=== PATIENT | male | born 1950 | race Caucasian/White ===

== ENCOUNTER → 2018-02-22 11:19 | Outpatient (CLI) | payer MEDICARE, BC, SELFPAY ==
[2018-02-22 12:58] LABS: Hemoglobin A1C 6.3 % (4.5-6.2)
[2018-02-22 13:01] LABS: Anion Gap 7.9 mmol/L (3-11); BUN 16 mg/dL (7-18); CO2 31.1 mmol/L (21.0-32.0); CREATININE 1.24 mg/dL (0.70-1.30); Calcium 9.5 mg/dL (8.5-10.1); Chloride 103 mmol/L (98-107); Glucose 156 mg/dL (70-100); Potassium 3.9 mmol/L (3.5-5.1); Sodium 142 mmol/L (136-145); TSH 2.59 uIU/mL (0.358-3.74)
== END ==
PROVIDERS: PCP Emergency Medicine; Visit Provider Emergency Medicine
DX: E03.9 Hypothyroidism, unspecified (principal); E11.49 Type 2 diabetes mellitus with other diabetic neurological complication
CPT/HCPCS: 36415; 80048; 83036; 84443

== ENCOUNTER 2018-03-03 10:30 | Outpatient (RCR) | payer MEDICARE, SELFPAY ==
--- NOTE | 2018-02-03 10:00 | PTTR_ITS ---
DATE: 02/03/18 SUBJECTIVE: Arrived to dept with note from orthopedist indicating he is to begin daily PT in an attempt to regain end range extension. Knows he has to be better about doing his HEP and allowing end range stretching. Orthopedist removed stitch in distal aspect of scar, is to leave bandage on this region for a week. Was instructed to take 2-3 pain pills prior to PT appts to help with discomfort. OBJECTIVE: KX applied to all codes x Manual therapy: (13173v2). Mobilization of right patella in all planes, tib fem jt mobs in supine and seated positions, scar tissue massage in well healed region of scar and prolonged stretching into flexion and extension. Focus was mainly on end range extension as per orthopedist orders. Performed hamstring and quad stretches for 5 reps x 20-30 seconds each. AROM prior to mobilization 15 degrees extension and post mobilization with AAROM was 8 degrees extension. Flexion remains at approximately 112 degrees. Able to perform full revolutions on stationary bike without discomfort. Therapeutic procedures ([id number]). * x HEP review: Reviewed use of 3x10 device and stretching of right hamstring with foot up on chair or stool, against wall and positioned in prone with knee hanging off bed with 5# weight at ankle. * x See flow sheet: Focus on AAROM into extension and strengthening of right LE / hip stabilizers. * x Provided skilled instruction in proper exercise performance * x Provided skilled manual cues to facilitate proper muscle recruitment and/ or movement pattern Ended session with 3x10 device with cold pack on knee x 3 minutes x 3 times. Having patient perform this independently with supervision. Direct treatment time: 60 minutes Total treatment time: 60 minutes
--- NOTE | 2018-02-04 15:51 | PTTR_ITS ---
DATE: 02/04/18 SUBJECTIVE: Yash indicates that he was a bit sorer last night, but tolerable. Has been utilizing his 3 x 10 device at home independently. Feels that his knee is a bit straighter than it had been. Is continuing to take 2 Oxycodone prior to P.T. services to help deal with the soft tissue mobilization sensitivity. OBJECTIVE: KX applied to all codes [yes] Manual therapy: ([id number]). Did receive mobs of the patella in all planes as well as tibiofemoral anterior and posterior glides while in supine. Soft tissue stretching of the hamstrings and quadriceps as well as prolonged stretching into end range flexion and extension with focus on end range extension. Did utilize hold relax technique with each of these positions. Also, had the patient perform prone hangs with a 5# weight at ankle. AROM prior to mobs was noted to be approx. 15 and post mobs AAROM is approx. 6 with over pressure given. Therapeutic procedures (13587r7). * x See flow sheet: focus was on AAROM into end range extension and strengthening of the right LE and hip stabilizers. * Verbal and tactile cues were provided throughout today's session for proper positioning and isolation of specific muscles. * Due to time limitations he was not able to complete his full program today. Is to be seen again tomorrow. * * Ended with 10 min. of cryotherapy to the right knee with leg fully extended and a towel roll under his heel to promote end range extension at no charge. The patient did report this becoming uncomfortable for the last minute. Direct treatment time: 45 min. Total treatment time: 55 min. SG/gc
--- NOTE | 2018-02-05 11:15 | PN_ITS ---
DATE: February 05, 2018 REFERRING: Breezy Bishop MD REPORTING PERIOD (for progress note and discharge note only): 12/24/17 TO SUBJECTIVE: Yash states that he worked a little bit on the knee extension board. Admits he is not doing it for 10 mins. We discussed performing this activity 3x a day for 10 mins. He is allowed to take some breaks during that 10 mins to lighten up that tension, but really stress the fact that he needs to be compliant with this if he is to regain terminal 10 degrees of extension. OBJECTIVE: Treatment: Manual therapy 37595w1 (KX modifier): Started with moist heat to the popliteal fossa, distal hamstring, proximal gastroc for 10 mins followed by instrument assisted soft tissue mobilization using fanning and sweeping through the distal 3rd of the hamstring and proximal third of the gastroc medial and lateral heads with GT1 and 4 followed by some patella mobilizations in all directions grade 3 and 4 followed by tibiofemoral joint distraction with over pressure into extension. Then set him up with 3x10 extension board in clinic and work for 10 mins with 2 breaks at 3 1/2 mins. Ended with cryotherapy for 10 mins to the knee. Treatment time: Direct/Total: 30 mins. ASSESSMENT: Still lacking approximately 10 degrees, however this is better than lacking 20 degrees as he was a couple weeks ago. Patient does need to be more compliant with his self mobilization if he is to make any significant gains with his terminal extension. KX modifier to be utilized as justified by above documentation for necessity of continued Physical Therapy intervention to attend to functional deficits which have not been fully remediated as they approach their Medicare cap. PLAN: Continue as above through next week as he is leaving the area for vacation after next week. MM/dl cc: Breezy Bishop MD
--- NOTE | 2018-02-08 14:31 | PTTR_ITS ---
DATE: 02/08/18 SUBJECTIVE: Yash states that he has been compliant with his HEP, including the 3x10 board. OBJECTIVE: KX modifier applied to all charges. Manual therapy: ([id number]). session began with MHP to posterior aspect of knee x 8 min. F/B STM t/o posterior knee, hamstring and gastroc region. Mobilizations of tib/fem jt including posterior and anterior glides. Patella glides in all directions as well as ROM into flex and ext. I focused on ext using MET's. LE distractions via leg pulls with over pressure into ext. Stretching of hamstrings, ITB and quads. Therapeutic procedures (21163h3). * x See flow sheet: limited ther ex routine with focus on extension. * x Provided skilled instruction in proper exercise performance: proper quad engagement. ended with cryo x 10 min. Direct treatment time: 45 min Total treatment time: 55 min.
--- NOTE | 2018-02-09 10:59 | PTTR_ITS ---
DATE: 02/09/18 SUBJECTIVE: Yash reports fair compliancy with his extension self mobilization board; at least 1x per day. Has also been resting his heel on a rail off his deck. OBJECTIVE: Manual therapy: ([id number]). Moist heat was applied to the posterior knee x10 minutes in the hook lying position followed IASTM via Graston Techniques with fanning and sweeping with GT 1 and GT 4 through the distal half of the hamstrings medially and laterally as well as the proximal half of the gastroc medially and laterally. AP and PA mobs were performed to the tibiofemoral joint followed by manual distraction with over pressure into extension achieving -10 . This is with over pressure. Ended with cryotherapy to the knee x10 min. in supine hook lying position. KX modifiers to be applied. Direct treatment time: 30 minutes Assessment: Fair compliancy, at best, with self mobilization into extension. Really don't anticipate gaining much more extension, other than the 10 he is currently lacking. Would like to see him come in lacking 10 , not 15 to 18 , and having to work to -10 , however. This certainly boils down to a compliancy issue. Plan: Continue as indicated above. He will cancel one of his next three visits this week, as he does not need to be seen daily, given the fact that he has plenty of things to work on at home for his HEP. This is contingent on his compliancy. Will see him 1x next week prior to his departure for vacation x1 week. MM/gc
--- NOTE | 2018-02-10 14:17 | PTTR_ITS ---
DATE: 02/10/18 SUBJECTIVE: Yash states that he feels as though he is where is at. He does not feel as though his ROM is improving at all. OBJECTIVE: KX applied to all codes Manual therapy: ([id number]). session began with MHP to posterior knee x 10 min. I then performed mobilizations of tib/fem jt including posterior and anterior glides, P/AAROM into flex and ext with focus on extension, in both flex and ext. Over pressure stretch into extension with tibial distractions using MET's. STM t/o popliteal fossa, distal hamstring and proximal gastroc using PRT's. I also used IASTM using Graston tools. Ended with cryo x 10 min. Ext measured approx 7 degrees post mobs. Direct treatment time: 35 min Total treatment time: 60 min
--- NOTE | 2018-02-12 14:39 | PTTR_ITS ---
DATE: 02/12/18 SUBJECTIVE: Yash indicates he feels that he has gained a little end range extension, but has a difficult time maintaining this. OBJECTIVE: KX applied to all codes (yes) Manual therapy: (49554w2). Did receive mobs of the right patella in all planes, as well as tibiofemoral anterior / posterior glides while seated and in supine. Utilized moist heat to the posterior knee x5 minutes prior to soft tissue mobs. Did utilized edger tool, as well, at the insertion regions of the right hamstrings and the origin region of the right gastroc musculature prior to soft tissue stretching into end range extension. The patient was noted to have approximately 12 of end range extension at the start of today's session. AA, post mobs, he had -7 of extension. Performed soft tissue stretching of the hamstrings, hip flexors and quadriceps was also performed today. The patient is lacking approximately 10 of end range flexion when compared to the contralateral limb. Treatment ended with cryotherapy x10 minutes with leg fully extended and heel on a towel roll to encourage end range extension. Direct treatment time: 40 minutes Total treatment time: 50 minutes Assessment: Tolerated today's session fair. Does have a very difficult time maintaining end range extension after P.T. sessions. I do think he has a difficult time pushing his extension at home. Plan: Will continue with focus on encouraging end range extension. Continue per supervising P.T. POC. THOR/fabricio
--- NOTE | 2018-02-15 13:19 | PTTR_ITS ---
DATE: 02/15/18 SUBJECTIVE: Yash brings back our 3 x 10 extension board, indicating he is leaving for vacation and will not use it while away. Admits he has been somewhat compliant with its use. OBJECTIVE: KX applied to all codes (yes) Manual therapy: (74297o4). Moist heat was applied to the popliteal fossa x10 min. in hook lying position. Performed IASTM via Graston Techniques to the distal hamstring and proximal gastroc with GT 1 and GT 4 as well as medial hamstring splaying at the distal attachment. This was followed by AP and PA mobs of the tibiofemoral jt at a Grade 4 followed by tibiofemoral jt. distraction with over pressure into extension. AA he measures 10 at best. Pre mobilization 20 and post mobilization lacking 15 . Therapeutic procedures (22712v3). * x See flow sheet: quad activation standing fashion pose exercise incorporating terminal extension with active over pressure. * * Ended with cryotherapy to the knee x10 min. at no charge. Direct treatment time: 11:00 til 11:45 A.M. Assessment: No appreciable change in his extension. I do feel this is pretty much where he is going to be, at this point, despite Orthopedist's optimism. I don't really see him progressing with further extension. Would like to get him to about 5 , but AA at 10 has been the max. Plan: Will follow up with patient after his vacation. MM/fabricio
--- NOTE | 2018-02-22 10:30 | PN_ITS ---
DATE: February 22, 2018 REFERRING: Dr. Breezy Bishop MD [facility] [place] REFERRING PROVIDER DIAGNOSIS:: R TKA Reporting period: 12/24/17 to 02/22/18 SUBJECTIVE: The patient reports NO compliance with his knee extension self mobilization when he was away for vacation. We do discuss resumption of the 3x10 extension board, which he is hesitant, but agreeable to. Denies any significant pain in the knee. OBJECTIVE: Upon observation, the patient still ambulating with decreased knee extension at initial contact, decreased heel strike. Tends to come down in a flat foot position. Treatment: Manual therapy [id number]: KX MODIFIER to all charges: Tibiofemoral joint distraction, tibiofemoral joint anterior/posterior mobilizations grade 3 and 4 followed by patella mobilization in all directions grade 4. Then performed hold/relax mobilization into tibiofemoral joint extension with manual distraction offered. Pre mobilization he is lacking 18-20 degrees of terminal extension. Post mobilization he is lacking 13-15 degrees. AA to -10 degrees terminal extension R. Ended with cryotherapy to the anterior/posterior aspect of the knee in hook lying for 10 mins. ASSESSMENT: No appreciable change with improvements in extension at this point. Patient does follow up with his orthopedist next week. G-Codes (fill in modifier after appropriate code): Patient's primary functional limitation is in the category of: __x__ Mobility - walking and moving around : [id number] Projected goal: __x__ Mobility - walking and moving around: [id number] Patient has met STG 1, 2, 3. Has not met 4 and 5 established at I.E. At this point do not anticipate him regaining terminal extension as he has significant scar tissue preventing him from achieving this. AA/Passively we are unable to get into terminal extension. Fair compliance at best with his self mobilization. LT & 3 have been MET, and LTG 4. STG: __6__ weeks. 1) full SLR with 0 lag 2) decrease pain by 25% 3) improve active knee flexion to 110 or more 4) knee extension, actively, to 0 5) ambulation with good gait mechanics and use of front wheeled walker LTG: __12__ weeks. 1) return to full functional mobility 2) active knee flexion greater than or equal to 115 3) increase LE strength to greater than or equal to 4/5 throughout 4) decrease LEFS to less than 35% STANDARDIZED MEASURE: The patient scores 29% on the LEFS PLAN: Continue, seeing patient 2 more times this week. I did reissue him the 3x10 extension board and have him work on this 10 mins 3x a day as tolerable. Following this week, will likely discharge from formal PT. MM/dl *Dr. Bishop, please sign this progress note if you are in agreement with the above plan of care. Breezy Bishop MD
--- NOTE | 2018-02-24 11:45 | PTTR_ITS ---
DATE: 02/24/18 SUBJECTIVE: [facility] states that he has not noted any changes. OBJECTIVE: KX modifier applied to charges. Manual therapy: ([id number]). mobilizations of right tib/fem jt including posterior and anterior glides, patella glides in all directions. LE distractions via leg pulls with over pressure into ext. Stretching of hamstrings, ITB and hip flex/quads in modified Urbano test position. He went into prone and received STM t/o hamstring, and popliteal fossa region using PRT's and CMF. Over pressure stretch into extension. He ended with cryo x 10 min. Continues to lack approx 10 degrees of extension. Direct treatment time: 40 min Total treatment time: 50 min
--- NOTE | 2018-02-26 12:08 | PTTR_ITS ---
DATE: 02/26/18 SUBJECTIVE: Yash states he is doing the same. No changes in knee. OBJECTIVE: KX applied to all codes Manual therapy: ([id number]). mobilizations of tib/fem jt including posterior and anterior glides, ROM in seated and supine positions. LE distractions with tibial distractions and over pressure stretching into extension. Patella glides in all directions. Hamstring , and ITB stretching. He went into prone and received STM t/o posterior aspect of knee with focus on ITB and lateral hamstring. IASTM using Graston tools, PRT' s and CFM . Continued stretching into extension. He ended with cryo x 10 min with elevation. Direct treatment time: 45 min Total treatment time: 55 min
--- NOTE | 2018-03-01 10:30 | PTTR_ITS ---
DATE: 03/01/18 SUBJECTIVE: Yash states he sees orthopedist later today. At this point he thinks he has reached a plateau with his therapy. Admits he is not very compliant with extension self mobilization. OBJECTIVE: KX applied to all codes X Manual therapy: ([id number]). Premobilization he is -18 degrees, post mobilization AA to -10. Incision is moving well except the last inch and half where he had the stitch removed. Patella mobility is improving, medial, lateral , superiorly is still mildly limited inferiorly. Knee flexion to 105 degrees active, 110 AA. Patella mobilizations, inferior/superior, tibiofemoral joint mobilization with manual distraction, over pressure into extension. He then performed hamstring, gastroc stretching. Completed treatment with ice to anterior/posterior aspect of the knee. Direct treatment time: 30 mins Total treatment time: 30 mins A: No appreciable gains at this point with ROM into extension. Compliancy is certainly an issue. P: Follow up with him after his ortho visit. Will plan to discharge at that time. MM/dl
--- NOTE | 2018-03-03 14:32 | PTTR_ITS ---
DATE: 03/03/18 SUBJECTIVE: Yash reports that his MD would like him to continue with PT. OBJECTIVE: Manual therapy: ([id number] N/C). mobilizations of left tib/fem jt including posterior and anterior glides, ROM in seated and supine positions. Patella glides in all directions. Scar tissue work. Over pressure stretching with tibial distractions. Stretching of hamstring , in various positions. He went into prone and received STM t/o posterior knee with focus on lateral hamstrings, ITB and lateral calf. Myofascial stretching and continued over pressure stretch with tibial distractions in prone. He wento back into supine and I continued his ROM with focus on extension. Continues to lack approx 10 degrees of extension AA. He declined cryo today. Direct treatment time: 30 min Total treatment time: 30 min
== END 2018-03-05 23:59 | disposition home or self-care (01) ==
LOC: PT 10:30
PROVIDERS: PCP Emergency Medicine; Referring Provider Orthopaedic Surgery Adult Reconstructive Orthopaedic Surgery; Visit Provider Orthopaedic Surgery Adult Reconstructive Orthopaedic Surgery
DX: Z47.1 Aftercare following joint replacement surgery (principal); Z96.651 Presence of right artificial knee joint; M75.102 Unspecified rotator cuff tear or rupture of left shoulder, not specified as traumatic
CPT/HCPCS: 97110; 97140; G8978

== ENCOUNTER 2018-03-20 09:06 | Outpatient (CLI) | payer MEDICARE, BC, SELFPAY ==
[2018-03-20 10:53] LABS: HCT 47.1 % (40.0-50.0); HGB 15.9 g/dL (13.5-17.5); Mean Corp. HGB Concentration 33.8 g/dL (32.0-36.0); Mean Corpuscular Hemoglobin 29.6 pg (27.0-33.0); Mean Corpuscular Volume 87.7 fL (80-95); Mean Platelet Volume 9.7 fL (8.0-11.0); Platelet Count 271 x1000/uL (130-400); RBC 5.37 m/cumm (4.50-6.00); RBC Distribution Width 14.3 % (11.8-14.1); White Blood Cell Count 9.42 k/cumm (4.4-10.8)
[2018-03-20 11:01] LABS: Bilirubin Negative (Negative); Blood Negative (Negative); Clarity Clear; Glucose Negative (Negative); Ketones Negative (Negative); Leukocyte Esterase Negative (Negative); Nitrite Negative (Negative); Urobilinogen 0.2 EU/dL (Up TO 0.2); pH 6.5 (5-8)
[2018-03-20 11:10] LABS: Bacteria Rare HPF (Negative); C & S Indicated? No; Casts Negative LPF (Negative); Crystals Negative HPF (Negative); Epithelial Cells Negative HPF (Negative); Mucus Trace (Negative); Other Cells Negative (Negative); RBC Negative (0-2); WBC Negative HPF (0-5)
[2018-03-20 11:37] LABS: ALT 22 U/L (12-78); AST 15 U/L (15-37); Albumin 3.4 g/dL (3.4-5.0); Alkaline Phosphatase 87 U/L (46-116); Anion Gap 10.2 mmol/L (3-11); BUN 13 mg/dL (7-18); Bilirubin, Total 1.6 mg/dL (0.2-1.0); CO2 28.8 mmol/L (21.0-32.0); CREATININE 1.39 mg/dL (0.70-1.30); Calcium 9.1 mg/dL (8.5-10.1); Chloride 103 mmol/L (98-107); Estimated GFR 50.67 (mL/min/1.73m2); Glucose 161 mg/dL (70-100); Magnesium 1.6 mg/dL (1.8-2.4); PHOSPHORUS 2.9 mg/dL (2.6-4.7); Potassium 3.5 mmol/L (3.5-5.1); Sodium 142 mmol/L (136-145); Total Protein 7.3 g/dL (6.4-8.2); Uric Acid 7.2 mg/dL (3.5-7.2)
[2018-03-20 11:38] LABS: Cholesterol 125 mg/dL (50-200)
[2018-03-22 04:55] LABS: PROTEIN 113.1 mg/dL
[2018-03-22 05:25] LABS: COMMENT (LAB VIEW ONLY) 142.45 mg/dL; Prot/Crea Ur Ratio 0.79
[2018-03-22 13:44] LABS: Tacrolimus 10.8 ng/ml
== END 2018-03-20 09:26 ==
PROVIDERS: PCP Emergency Medicine; Visit Provider Internal Medicine Nephrology
DX: Z94.0 Kidney transplant status (principal); Z79.899 Other long term (current) drug therapy
CPT/HCPCS: 80053; 85027; 80197; 81003; 81015; 82465; 82565; 83735; 84100; 84156; 84550

== ENCOUNTER 2018-06-12 11:52 | Emergency (ER) | payer MEDICARE, BC, SELFPAY ==
[2018-06-12] VITALS (13 sets, daily range): BP systolic 162–204; BP diastolic 68–85; PULSE 51–63; RESP 16–18; TEMP 36.5–36.6; O2SAT 93–97
--- NOTE | 2018-06-12 12:10 | ED.GENADUL_ITS ---
Discharge Plan Disposition Patient Disposition: HOME Condition: Good Discharge Details Chief Complaint: Abd Prob Clinical Impression: Abdominal pain, Biliary colic, Colitis, Vomiting Primary Care Provider: Urbano Denis ED Provider: Aminah Walsh Home Meds and New Rx's Prescriptions: No Action blood-glucose meter 1 EACH misc 1 ea Miscellaneous DAILY Qty: 1 RF: 1 lancets 1 EACH misc 1 ea Miscellaneous DAILY Qty: 100 RF: 4 calcitriol 0.25 MCG capsule 0.25 mcg PO DAILY Qty: 90 RF: 3 magnesium gluconate 27 MG tablet 2 tab PO BID RF: 0 mycophenolate mofetil [CellCept] 250 MG capsule 250 mg PO BID RF: 0 tacrolimus [Prograf] 1 MG capsule 3 mg PO BID RF: 0 potassium phosphate, monobasic [K-Phos Original] 500 MG tablet,soluble 3 tab PO BID RF: 0 tamsulosin 0.4 MG capsule 0.4 mg PO DAILY RF: 0 ascorbic acid (vitamin C) [Vitamin C] 500 MG capsule, extended release 500 mg PO TID RF: 0 blood sugar diagnostic [The IdealistsTouch Ultra Test] 1 EACH strip 1 ea Miscellaneous BID Qty: 180 RF: 3 levothyroxine 137 MCG tablet 137 mcg PO DAILY Qty: 90 RF: 3 oxycodone 5 MG capsule 5 mg PO HS MDD 3 RF: 0 sildenafil [Viagra] 100 MG tablet 100 mg PO as directed MDD 100 mg Qty: 10 RF: 6 glipizide [Glucotrol XL] 5 mg tablet extended release 24hr 5 mg PO DAILY Qty: 90 RF: 3 clopidogrel [Plavix] 75 mg tablet 75 mg PO DAILY Qty: 90 RF: 4 omeprazole 20 MG capsule,delayed release(DR/EC) 20 mg PO DAILY PRNRF: 0 Discharge Instructions Instructions: Biliary Colic (ED), Abdominal Pain (ED), Colitis (ED) Additional Instructions: Drink plenty of fluids and get plenty of rest. Take Tylenol as needed and directed for pain. Limit fried and fatty foods over the next few days and in general as these can lead to gallstones. Follow-up with your primary care doctor in 1 week for reevaluation. Return immediately to the emergency department any worsening or new concerning symptoms. Discharge Data Discharge Date/Time-TO BE ENTERED AT DEPARTURE: 06/12/18 18:10 Discharge Physician: Aminah Walsh Medical Decision Making 67yo M with a history of A. fib, CHF, diabetes, hypertension, kidney transplant 2016 who presents with right-sided abdominal, right testicular pain and vomiting x1 this morning. Blood pressure mildly hypertensive otherwise vitals within normal limits. Patient afebrile. Patient appears nontoxic. Patient has tenderness to palpation extending from the right lower quadrant up to the right upper quadrant. Negative heel jar, obturator, psoas sign. No rebound tenderness. No rigidity. Normal exam. Patient does also have suprapubic and left lower quadrant tenderness. Due to patient's history of kidney transplant, cannot use IV contrast. Differential diagnosis includes appendicitis, cholecystitis, nephrolithiasis, diverticulitis, SBO. We will place an IV give bolus IV fluids, oral contrast, labs, urinalysis and give a dose of Zofran. Patient is declining pain medication at this time. 1445 --labs and imaging reviewed. Normal white blood cell count. Labs unremarkable. 5-10 RBCs in the urine but no evidence of infection. CT abdomen notes mildly edematous renal transplant, possible mild diverticulitis, possible colitis and a gallstone in the gallbladder. Normal appendix. Will push images to [facility] transplant team to evaluate the transplant kidney. Radiology called to see if possible to obtain a gallbladder ultrasound. Patient is still complaining of pain. We will give a dose of 2 mg morphine. 1700 -- Dr. Hutchins discussed with [facility] transplant team -CT findings of renal transplant stable and expected to be edematous and no acute findings. Gallbladder ultrasound notes a nonmobile gallstone in the gallbladder neck but no findings of cholecystitis. Patient is requesting a tray of food. Will reassess. 1800 -- Pt feels much better and is requesting to go home. Pt was able to eat a tray of food and no vomiting, pain near resolved. On reassessment of abdomen, no left lower or right lower quadrant tenderness, he had minimal right upper quadrant tenderness. Instructed that his symptoms may be due to biliary colic or colitis. Doubt diverticulitis as he has normal white blood cell count, afebrile, and no left lower quadrant tenderness at this time. Instructed to drink plenty of fluids, limit high fatty foods and take tylenol for pain. Medical Records Medical records reviewed: Yes I reviewed the patient's medical records. Imaging Data Radiologic Study: Radiologist's impression: EXAM: CT Abdomen and Pelvis Without Contrast EXAM DATE/TIME: 06/12/2018 12:33 PM FINDINGS: Lower thorax: Cardiomegaly There is calcification of the aortic valve annulus. Small hiatal hernia ABDOMEN: Liver: Hepatomegaly 20 cm Gallbladder and bile ducts: Gallstone in the gallbladder. Pancreas: Pancreatic atrophy Spleen: Splenomegaly 14 cm. Adrenals: Normal. No mass. Kidneys and ureters: Renal transplant in the left hemipelvis. The collecting system of the transplant is essentially continuous with the bladder. The ureter is very short. The transplant kidney is mildly edematous. Severe bilateral renal atrophy of the [place] kidneys. Hydronephrosis and hydroureter of the left [place] kidney.. Stomach and bowel: Diverticulosis of the rectosigmoid. Mild pericolonic inflammatory changes may represent mild diverticulitis in the appropriate clinical setting. Bowel wall thickening in the colon may represent decompressed bowel versus colitis. Appendix: Normal appendix PELVIS: Bladder: See Kidneys And Ureters Finding. Reproductive: Unremarkable as visualized. ABDOMEN and PELVIS: Intraperitoneal space: Normal. No free air. No significant fluid collection. Bones/joints: No acute fracture. No dislocation. Soft tissues: Bilateral inguinal hernias containing fat, no bowel. Vasculature: Normal. No abdominal aortic aneurysm. Lymph nodes: Normal. No enlarged lymph nodes. IMPRESSION: 1. Renal transplant in the left hemipelvis. The collecting system of the transplant is essentially continuous with the bladder. The ureter is very short. The transplant kidney is mildly edematous. 2. Diverticulosis of the rectosigmoid. Mild pericolonic inflammatory changes may represent mild diverticulitis in the appropriate clinical setting. 3. Bowel wall thickening in the colon may represent decompressed bowel versus colitis. 4. Gallstone in the gallbladder. 5. Severe bilateral renal atrophy of the [place] kidneys. Hydronephrosis and hydroureter of the left [place] kidney.. 6. Bilateral inguinal hernias containing fat, no bowel. 7. Splenomegaly 14 cm. Differential diagnosis of splenomegaly is lymphoma/ leukemia, mononucleosis, hemolytic anemia, portal hypertension. Radiologic Study #2: Radiologist's impression: EXAM: US Abdomen Limited, Right Upper Quadrant EXAM DATE/TIME: 06/12/2018 4:09 PM FINDINGS: Liver: There is a diffuse increase in hepatic parenchymal echogenicity, consistent with fatty infiltration. Gallbladder: Nonmobile gallstone in or near the gallbladder neck Gallbladder wall 2.1 mm . Negative sonographic Rosales's sign Common bile duct: Common bile duct 5.5 mm IMPRESSION: Nonmobile gallstone in or near the gallbladder neck. Normal gallbladder wall. Normal common bile duct. No pericholecystic fluid Lab Data Lab results reviewed: Yes I reviewed the patient's lab results. Laboratory Tests Range/Units 06/12/18 06/12/18 06/12/18 12:05 12:05 12:52 WBC (4.4-10.8) k/cumm 8.35 RBC (4.50-6.00) m/cumm 5.54 Hgb (13.5-17.5) g/dL 16.9 Hct (40.0-50.0) % 48.8 MCV (80-95) fL 88.1 MCH (27.0-33.0) pg 30.5 MCHC (32.0-36.0) g/dL 34.6 RDW (11.8-14.1) % 13.7 Plt Count (130-400) x1000/uL 272 MPV (8.0-11.0) fL 10.2 Abs Immat Gran (auto) Immature Gran % Neutrophils % Lymphocytes % Monocytes % Eosinophils % Basophils % Absolute Neutrophils Band Neutrophils Absolute Lymphocytes Absolute Monocytes Absolute Eosinophils Absolute Basophils Metamyelocytes Myelocytes Promyelocytes Nucleated RBCs Differential Comment Atypical Lymphocytes Other Cell Type RBC Morphology Polychromasia Hypochromasia Poikilocytosis Basophilic Stippling Anisocytosis Microcytosis Macrocytosis Spherocytes Target Cells Tear Drop Cells Ovalocytes Stomatocytes [place] Bodies [place] Cells Acanthocytes (Spur) Schistocytes Sodium (136-145) mmol/L 140 Potassium (3.5-5.1) mmol/L 3.5 Chloride (98-107) mmol/L 100 Carbon Dioxide (21.0-32.0) mmol/L 30.6 Anion Gap (3-11) mmol/L 9.4 BUN (7-18) mg/dL 18 Creatinine (0.70-1.30) mg/dL 1.28 Estimated GFR/1.73 m2 (mL/min/1.73m2) 55.72 Glucose (70-100) mg/dL 128 H Calcium (8.5-10.1) mg/dL 9.5 Total Bilirubin (0.2-1.0) mg/dL 2.0 H AST (15-37) U/L 17 ALT (12-78) U/L 26 Alkaline Phosphatase (46-116) U/L 83 Total Protein (6.4-8.2) g/dL 8.0 Albumin (3.4-5.0) g/dL 3.6 Lipase (73-393) U/L 141 Urine Color (Yellow) Yellow Urine Clarity Clear Urine pH (5-8) 7.0 Ur Specific [place] (1.005-1.025) 1.020 Urine Protein (Negative) mg/dL 100 H Urine Ketones (Negative) mg/dL Negative Urine Blood (Negative) Trace-intact H Urine Nitrite (Negative) Negative Urine Bilirubin (Negative) Negative Urine Urobilinogen (Up TO 0.2) EU/dL 0.2 Ur Leukocyte Esterase (Negative) Negative Urine RBC (0-2) 5-10 H Urine WBC (0-5) HPF Negative Ur Epithelial Cells (Negative) HPF Negative Urine Crystals (Negative) HPF Negative Urine Bacteria (Negative) HPF Negative Urine Casts (Negative) LPF Negative Urine Mucus (Negative) Negative Ur Culture Indicated? No Urine Glucose (Negative) mg/dL Negative Range/Units 06/12/18 06/12/18 16:21 16:21 WBC (4.4-10.8) k/cumm Cancelled RBC (4.50-6.00) m/cumm Cancelled Hgb (13.5-17.5) g/dL Cancelled Hct (40.0-50.0) % Cancelled MCV (80-95) fL Cancelled MCH (27.0-33.0) pg Cancelled MCHC (32.0-36.0) g/dL Cancelled RDW (11.8-14.1) % Cancelled Plt Count (130-400) x1000/uL Cancelled MPV (8.0-11.0) fL Cancelled Abs Immat Gran (auto) Cancelled Immature Gran % Cancelled Neutrophils % Cancelled Lymphocytes % Cancelled Monocytes % Cancelled Eosinophils % Cancelled Basophils % Cancelled Absolute Neutrophils Cancelled Band Neutrophils Cancelled Absolute Lymphocytes Cancelled Absolute Monocytes Cancelled Absolute Eosinophils Cancelled Absolute Basophils Cancelled Metamyelocytes Cancelled Myelocytes Cancelled Promyelocytes Cancelled Nucleated RBCs Cancelled Differential Comment Cancelled Atypical Lymphocytes Cancelled Other Cell Type Cancelled RBC Morphology Cancelled Polychromasia Cancelled Hypochromasia Cancelled Poikilocytosis Cancelled Basophilic Stippling Cancelled Anisocytosis Cancelled Microcytosis Cancelled Macrocytosis Cancelled Spherocytes Cancelled Target Cells Cancelled Tear Drop Cells Cancelled Ovalocytes Cancelled Stomatocytes Cancelled [place] Bodies Cancelled [place] Cells Cancelled Acanthocytes (Spur) Cancelled Schistocytes Cancelled Sodium (136-145) mmol/L Cancelled Potassium (3.5-5.1) mmol/L Cancelled Chloride (98-107) mmol/L Cancelled Carbon Dioxide (21.0-32.0) mmol/L Cancelled Anion Gap (3-11) mmol/L Cancelled BUN (7-18) mg/dL Cancelled Creatinine (0.70-1.30) mg/dL Cancelled Estimated GFR/1.73 m2 (mL/min/1.73m2) Cancelled Glucose (70-100) mg/dL Cancelled Calcium (8.5-10.1) mg/dL Cancelled Total Bilirubin (0.2-1.0) mg/dL Cancelled AST (15-37) U/L Cancelled ALT (12-78) U/L Cancelled Alkaline Phosphatase (46-116) U/L Cancelled Total Protein (6.4-8.2) g/dL Cancelled Albumin (3.4-5.0) g/dL Cancelled Lipase (73-393) U/L Urine Color (Yellow) Urine Clarity Urine pH (5-8) Ur Specific [place] (1.005-1.025) Urine Protein (Negative) mg/dL Urine Ketones (Negative) mg/dL Urine Blood (Negative) Urine Nitrite (Negative) Urine Bilirubin (Negative) Urine Urobilinogen (Up TO 0.2) EU/dL Ur Leukocyte Esterase (Negative) Urine RBC (0-2) Urine WBC (0-5) HPF Ur Epithelial Cells (Negative) HPF Urine Crystals (Negative) HPF Urine Bacteria (Negative) HPF Urine Casts (Negative) LPF Urine Mucus (Negative) Ur Culture Indicated? Urine Glucose (Negative) mg/dL HPI General Mode of arrival: ambulatory . Date/Time Provider Initiated Documentation: 06/12/18 11:58 . Limitations to Documentation: no limitations . Information obtained by: patient . HPI Narrative: Pt is a 67yo M w/ a h/o DM, HTN, CHF, Afib, kidney transplant 2015 who presents with R sided abdominal pain since 9am this morning. Pt states his pain started in his R testicle and then in the R side of his abdomen. Patient describes the pain as constant, aching, currently 3/10 in his testicle, and currently 5/10 in the right side of his abdomen. Patient states the pain is worse with sitting or moving, better when lying supine and still. Patient has not taken any medication for pain. Patient still admits to some nausea. He denies any fever, urinary symptoms, rectal bleeding. States his last bowel movement was this morning and normal. Patient states he had a dental procedure 3 days ago for which he took 4 tabs of amoxicillin due to his history of kidney transplant. Patient states he mainly came here today to make sure he does not have appendicitis. Related Data Home Medications Medication Instructions Recorded Confirmed blood-glucose meter #1 ea 09/27/14 calcitriol 0.25 mcg PO DAILY #90 tab 09/27/14 lancets #100 ea 09/27/14 magnesium gluconate 2 tab PO BID 04/15/16 mycophenolate mofetil [Cellcept] 250 mg PO BID 04/15/16 potassium phosphate, monobasic 3 tab PO BID 04/15/16 [K-Phos Original] tacrolimus [Prograf] 3 mg PO BID 04/15/16 tamsulosin 0.4 mg PO DAILY tab-cap 04/15/16 ascorbic acid (vitamin C) [Vitamin 500 mg PO TID 09/05/16 C] blood sugar diagnostic [Onetouch #180 strip 11/04/16 Ultra Test Strips] levothyroxine 137 mcg PO DAILY #90 tab-cap 07/21/17 oxycodone 5 mg PO HS tab NS MDD 3 01/08/18 sildenafil [Viagra] 100 mg PO as directed #10 tab-cap 02/23/18 MDD 100 mg glipizide ER 5 mg tablet, extended 5 mg PO DAILY #90 tab-cap 03/30/18 release 24 hr clopidogrel 75 mg tablet 75 mg PO DAILY #90 tab-cap 06/10/18 06/12/18 omeprazole 20 mg PO DAILY PRN 06/12/18 Previous Rx's Medication Instructions Recorded levothyroxine 137 mcg PO DAILY #90 tab-cap 07/21/17 sildenafil [Viagra] 100 mg PO as directed #10 tab-cap 02/23/18 MDD 100 mg glipizide ER 5 mg tablet, extended 5 mg PO DAILY #90 tab-cap 03/30/18 release 24 hr clopidogrel 75 mg tablet 75 mg PO DAILY #90 tab-cap 06/10/18 Allergies Allergy/AdvReac Type Severity Reaction Status Date / Time No Known Allergies Allergy Unverified 06/12/18 12:06 General Stated Complaint: Abd Prob ALICIA: 3 Review of Systems Review of Systems All systems reviewed & are unremarkable except as noted in HPI and below Constitutional Reports as per HPI, Denies chills and Denies fever(s) Eyes Denies blurry vision ENT Denies dizziness, Denies sore throat and Denies throat swelling Cardiovascular Denies chest pain and Denies dyspnea Respiratory Denies dyspnea Gastrointestinal Reports abdominal pain, Denies diarrhea, Reports nausea and Denies vomiting Genitourinary Denies hematuria, Denies dysuria and Reports testicular pain Musculoskeletal Denies back pain and Denies numbness Integumentary/Breasts Denies lesions and Denies rash Neurologic Denies dizziness and Denies numbness Allergic/Immunologic Denies throat swelling PFSH Chronic kidney disease (Acute) Fistula (Acute) Hyperlipemia (Acute) Atrial fibrillation (Chronic) BPH (benign prostatic hyperplasia) (Chronic) CHF (congestive heart failure) (Chronic) CVA (cerebral vascular accident) (Chronic) Diabetes (Chronic) GERD (gastroesophageal reflux disease) (Chronic) HTN (hypertension) (Chronic) Hepatitis C (Chronic) Hypothyroidism (Chronic) Myocardial infarction (Chronic) Obstructive sleep apnea (Chronic) Family History Mother Essential hypertension Father Myocardial infarction Stroke Brother Essential hypertension Neoplasm H/O vasectomy (Acute) H/O bladder repair surgery (Chronic) History of hernia repair (Chronic) Arthroplasty of knee BIOPSY, KIDNEY (10/16/14) Colonoscopy - MAC KIDNEY TRANSPLANT (09/16/15) Rotator Cuff Repair Family History Mother Essential hypertension Father Myocardial infarction Stroke Brother Essential hypertension Neoplasm Medical History Chronic kidney disease (Acute) Hyperlipemia (Acute) Atrial fibrillation (Chronic) BPH (benign prostatic hyperplasia) (Chronic) CHF (congestive heart failure) (Chronic) CVA (cerebral vascular accident) (Chronic) Diabetes (Chronic) GERD (gastroesophageal reflux disease) (Chronic) HTN (hypertension) (Chronic) Hepatitis C (Chronic) Hypothyroidism (Chronic) Myocardial infarction (Chronic) Obstructive sleep apnea (Chronic) Social History Smoking/Tobacco Use Status: Former Tobacco Use Surgical History H/O vasectomy (Acute) History of hernia repair (Chronic) Arthroplasty of knee BIOPSY, KIDNEY (10/16/14) Colonoscopy - MAC KIDNEY TRANSPLANT (09/16/15) Rotator Cuff Repair Social History Smoking/Tobacco Use Status: Former Tobacco Use alcohol intake: current alcohol intake frequency: holidays/special occasions only substance use type: marijuana Exam Const General: cooperative and healthy appearing Orientation: alert and awake HENMT Head: normal to inspection Ears: hearing grossly normal bilaterally and external ears normal Face and sinus: normal facial exam Mouth: oral mucosae normal Eyes General: appearance normal, both eyes and all related structures Eyelids: eyelids normal EOM: EOM intact bilaterally Neck Neck: normal visual inspection Chest Chest: normal inspection of the chest Resp Effort & Inspection: normal respiratory effort and able to speak in complete sentences Auscultation: clear to auscultation bilaterally Cardio Rate: regular rate Rhythm: regular rhythm GI Inspection: normal to inspection and scar (Curved extending from right side to left side of lower abdomen and vertically extending up abdomen and around umbilicus to lower epigastric region, well healed, no signs of infection) Palpation: soft, not firm, no guarding, no hepatosplenomegaly, no masses and tender (Tenderness extends from the right lower quadrant up to right upper quadrant. Also with some suprapubic and left lower quadrant tenderness.) at McBurney's point and other (negative heel jar sign); obturator sign negative, psoas sign negative and with no rebound tenderness Auscultation: normal bowel sounds Male General Exam: Yes normal external exam Penis: normal penis Scrotum: scrotum normal Testes: no testicular mass, no testicular swelling and no testicular tenderness Back/Spine/Pelvis Back: no CVA tenderness Skin General skin exam: no rashes or lesions noted Neuro General: alert and awake Cognition: normal cognition Speech: speech normal Gait: normal gait Motor: muscle tone normal throughout Sensory Exam: no sensory deficits noted Extrem General: normal to inspection, full ROM, normal capillary refill and no edema Psych Appearance: grossly normal Mental Status: mental status grossly normal Speech and Movement: speech and movement normal Affect: normal affect Thought Process: normal Course Vital Signs Temperature 97.7 F 06/12/18 11:59 Pulse 62 06/12/18 11:59 Respiratory Rate 18 06/12/18 11:59 Blood Pressure 173/70 H 06/12/18 11:59 Pulse Oximetry 96 06/12/18 11:59 Temperature 97.7 F 06/12/18 11:59 Temperature Source Skin 06/12/18 11:59 Pulse 62 06/12/18 11:59 Respiratory Rate 18 06/12/18 11:59 Blood Pressure 173/70 H 06/12/18 11:59 Pulse Oximetry 96 06/12/18 11:59 Pain Level 5 06/12/18 11:59
--- NOTE | 2018-06-12 12:30 | DI.CT_ITS ---
SYMPTOMS/DIAGNOSIS: RIGHT UPPER AND RIGHT LOWER QUADRANT PAIN, RIGHT TESTICULAR PAIN, ? CHOLECYSTITIS OR APPENDICITIS, ? KIDNEY STONE CT OF THE ABDOMEN AND PELVIS: Images were performed from the lung bases through the ischial tuberosities after oral and without IV contrast. The oral contrast is seen in the stomach and proximal to mid small bowel. There is no bowel dilatation. The appendix appears normal. Diverticula are noted in the lower descending and sigmoid. No definite inflammatory changes are seen. The colon is mainly decompressed except for the cecum. A left iliac fossa renal transplant is seen. There is no evidence of hydronephrosis. The prostate is mildly enlarged and shows calcification. The [place] kidneys are severely atrophic. There is hydronephrosis of the left [place] kidney. There is a fatty-containing left inguinal hernia. A midline surgical scar is noted. The heart is enlarged. A 5 mm nodule is noted at the left lung base, likely an incidental granuloma. The liver shows mild fatty infiltration. A stone is noted in the dependent portion of the gallbladder. There is no gallbladder dilatation, wall thickening or biliary dilatation. The pancreas appears somewhat atrophic. The spleen and adrenals are unremarkable. IMPRESSION: Left pelvic renal transplant without evidence of stones or hydronephrosis. Diverticulosis without evidence of diverticulitis.
[2018-06-12 12:42] LABS: HCT 48.8 % (40.0-50.0); HGB 16.9 g/dL (13.5-17.5); Mean Corp. HGB Concentration 34.6 g/dL (32.0-36.0); Mean Corpuscular Hemoglobin 30.5 pg (27.0-33.0); Mean Corpuscular Volume 88.1 fL (80-95); Mean Platelet Volume 10.2 fL (8.0-11.0); Platelet Count 272 x1000/uL (130-400); RBC 5.54 m/cumm (4.50-6.00); RBC Distribution Width 13.7 % (11.8-14.1); White Blood Cell Count 8.35 k/cumm (4.4-10.8)
[2018-06-12] MEDS: Omnipaque 350 MG/ML 50 ML BTL PO (12:50)
[2018-06-12] MEDS: Breeza Beverage 473 ML BTL PO ×2 (12:51→12:52)
[2018-06-12] MEDS: Ondansetron 4 MG/2 ML VIAL IVP (13:00)
[2018-06-12] MEDS: Normal Saline 250 ML 500 ML IV (13:00)
[2018-06-12 13:06] LABS: ALT 26 U/L (12-78); AST 17 U/L (15-37); Albumin 3.6 g/dL (3.4-5.0); Alkaline Phosphatase 83 U/L (46-116); Anion Gap 9.4 mmol/L (3-11); BUN 18 mg/dL (7-18); CO2 30.6 mmol/L (21.0-32.0); CREATININE 1.28 mg/dL (0.70-1.30); Calcium 9.5 mg/dL (8.5-10.1); Chloride 100 mmol/L (98-107); Estimated GFR 55.72 (mL/min/1.73m2); Glucose 128 mg/dL (70-100); Lipase 141 U/L (73-393); Potassium 3.5 mmol/L (3.5-5.1); Sodium 140 mmol/L (136-145)
[2018-06-12 13:07] LABS: Bilirubin Negative (Negative); Blood Trace-intact (Negative); Clarity Clear; Glucose Negative (Negative); Ketones Negative (Negative); Leukocyte Esterase Negative (Negative); Nitrite Negative (Negative); Urobilinogen 0.2 EU/dL (Up TO 0.2)
[2018-06-12] MEDS: Acetaminophen 500 MG TAB 1000 MG PO (13:14)
[2018-06-12 13:21] LABS: Bacteria Negative HPF (Negative); C & S Indicated? No; Casts Negative LPF (Negative); Crystals Negative HPF (Negative); Epithelial Cells Negative HPF (Negative); Mucus Negative (Negative); WBC Negative HPF (0-5)
--- NOTE | 2018-06-12 14:30 | DI.VRAD_ITS ---
EXAM: CT Abdomen and Pelvis Without Contrast EXAM DATE/TIME: 06/12/2018 12:33 PM CLINICAL HISTORY: 67 years old, male; Pain; Abdominal pain; Localized; Right; Prior surgery; Surgery date: 6+ months; Surgery type: Patient had one ureter and kidney removed, and one kidney transplant 2 years ago. ; Patient HX: Patient had one ureter and kidney removed, and one kidney transplant 2 years ago. Patient sts ruq and rlq pain since this morning. TECHNIQUE: Axial computed tomography images of the abdomen and pelvis without contrast. All CT scans at this facility use at least one of these dose optimization techniques: automated exposure control; mA and/or kV adjustment per patient size (includes targeted exams where dose is matched to clinical indication); or iterative reconstruction. Coronal and sagittal reformatted images were created and reviewed. COMPARISON: US RENAL ULTRASOUND(P) 09/02/2017 1:43 PM FINDINGS: Lower thorax: Cardiomegaly There is calcification of the aortic valve annulus. Small hiatal hernia ABDOMEN: Liver: Hepatomegaly 20 cm Gallbladder and bile ducts: Gallstone in the gallbladder. Pancreas: Pancreatic atrophy Spleen: Splenomegaly 14 cm. Adrenals: Normal. No mass. Kidneys and ureters: Renal transplant in the left hemipelvis. The collecting system of the transplant is essentially continuous with the bladder. The ureter is very short. The transplant kidney is mildly edematous. Severe bilateral renal atrophy of the [place] kidneys. Hydronephrosis and hydroureter of the left [place] kidney.. Stomach and bowel: Diverticulosis of the rectosigmoid. Mild pericolonic inflammatory changes may represent mild diverticulitis in the appropriate clinical setting. Bowel wall thickening in the colon may represent decompressed bowel versus colitis. Appendix: Normal appendix PELVIS: Bladder: See Kidneys And Ureters Finding. Reproductive: Unremarkable as visualized. ABDOMEN and PELVIS: Intraperitoneal space: Normal. No free air. No significant fluid collection. Bones/joints: No acute fracture. No dislocation. Soft tissues: Bilateral inguinal hernias containing fat, no bowel. Vasculature: Normal. No abdominal aortic aneurysm. Lymph nodes: Normal. No enlarged lymph nodes. IMPRESSION: 1. Renal transplant in the left hemipelvis. The collecting system of the transplant is essentially continuous with the bladder. The ureter is very short. The transplant kidney is mildly edematous. 2. Diverticulosis of the rectosigmoid. Mild pericolonic inflammatory changes may represent mild diverticulitis in the appropriate clinical setting. 3. Bowel wall thickening in the colon may represent decompressed bowel versus colitis. 4. Gallstone in the gallbladder. 5. Severe bilateral renal atrophy of the [place] kidneys. Hydronephrosis and hydroureter of the left [place] kidney.. 6. Bilateral inguinal hernias containing fat, no bowel. 7. Splenomegaly 14 cm. Differential diagnosis of splenomegaly is lymphoma/leukemia, mononucleosis, hemolytic anemia, portal hypertension. Dictated and Authenticated by: Yvonne Servin MD. Ordering:CARLOS AGUIRRE MD
[2018-06-12] MEDS: MORPHine 10 MG/ML VIAL 2 MG IVP (14:57)
--- NOTE | 2018-06-12 15:54 | DI.CT_ITS ---
SYMPTOMS/DIAGNOSIS: UPPER ABDOMINAL PAIN, ? CHOLECYSTITIS RIGHT UPPER QUADRANT ULTRASOUND: A stone is seen in the gallbladder, which did not show mobility on the current exam. There is no abnormal gallbladder distention, wall thickening or pericholecystic fluid. The liver shows fatty infiltration. IMPRESSION: Nonmobile gallstone in or near the gallbladder neck. No findings to suggest acute cholecystitis.
[2018-06-12] MEDS: MORPHine 10 MG/ML VIAL 4 MG IVP (16:16)
--- NOTE | 2018-06-12 16:32 | DI.VRAD_ITS ---
EXAM: US Abdomen Limited, Right Upper Quadrant EXAM DATE/TIME: 06/12/2018 4:09 PM CLINICAL HISTORY: 67 years old, male; Pain; Abdominal pain; Generalized TECHNIQUE: Real-time ultrasound of the abdomen with image documentation. Examination was focused on the right upper quadrant. COMPARISON: US RENAL ULTRASOUND(P) 09/02/2017 1:43 PM FINDINGS: Liver: There is a diffuse increase in hepatic parenchymal echogenicity, consistent with fatty infiltration. Gallbladder: Nonmobile gallstone in or near the gallbladder neck Gallbladder wall 2.1 mm . Negative sonographic Rosales's sign Common bile duct: Common bile duct 5.5 mm IMPRESSION: Nonmobile gallstone in or near the gallbladder neck. Normal gallbladder wall. Normal common bile duct. No pericholecystic fluid Dictated and Authenticated by: Yvonne Servin MD. Ordering:CARLOS AGUIRRE MD
[2018-06-12] MEDS: Ondansetron O.D.T. 4 MG TABEF PO (19:07)
== END 2018-06-12 18:10 | disposition home or self-care (01) ==
PROVIDERS: Emergency Provider Physician Assistant; PCP Emergency Medicine
DX: R10.11 Right upper quadrant pain (principal); K80.20 Calculus of gallbladder without cholecystitis without obstruction; K52.9 Noninfective gastroenteritis and colitis, unspecified; R11.2 Nausea with vomiting, unspecified; R93.422 Abnormal radiologic findings on diagnostic imaging of left kidney; E11.22 Type 2 diabetes mellitus with diabetic chronic kidney disease; Z94.0 Kidney transplant status; I13.2 Hypertensive heart and chronic kidney disease with heart failure and with stage 5 chronic kidney disease, or end stage renal disease; N18.5 Chronic kidney disease, stage 5; I50.9 Heart failure, unspecified
CPT/HCPCS: 36415; 80053; 83690; 85027; 96361; 96374; 96375; 96376; 99284; 74176; 76705; 81003; 81015; 85025; 99285; J2270; J2405; Q9967

== ENCOUNTER 2018-11-10 10:49 | Emergency (ER) | payer MEDICARE, OTHER, SELFPAY ==
[2018-11-10 10:53] VITALS: BP 161/79; PULSE 64; RESP 18; TEMP 37; O2SAT 96
--- NOTE | 2018-11-10 10:59 | DI.US_ITS ---
SYMPTOMS/DIAGNOSIS: SWELLING, PAIN, REDNESS, LEFT ELBOW; NO TRAUMA; ? DVT LEFT UPPER EXTREMITY ULTRASOUND: The visualized portions of the left jugular and subclavian veins are unremarkable. The axillary, brachial, basilic and cephalic veins show no filling defect to suggest venous thrombosis. IMPRESSION: No evidence of a left upper extremity venous thrombus.
--- NOTE | 2018-11-10 10:59 | DI.RAD_ITS ---
SYMPTOMS/DIAGNOSIS: SWELLING, PAIN, REDNESS, LEFT ELBOW; NO TRAUMA LEFT ELBOW: Four views. No priors. No acute fracture or dislocation is seen. There are degenerative changes seen about the left elbow. There is an enthesophyte at the olecranon. There are densities anterior to the distal humerus, which may be loose bodies. IMPRESSION: No acute abnormality.
--- NOTE | 2018-11-10 11:05 | ED.GENADUL_ITS ---
Discharge Plan Disposition Patient Disposition: HOME Condition: Good Discharge Details Chief Complaint: Cellulitis Clinical Impression: Olecranon bursitis of left elbow Primary Care Provider: Urbano Denis ED Provider: Richard San Home Meds and New Rx's Prescriptions: New cephalexin [Keflex] 500 mg capsule 500 mg PO QID 10 Days Qty: 40 RF: 0 hydrocodone-acetaminophen [Lawtey] 7.5-325 mg tablet 1 tab PO Q6H Qty: 6 RF: 0 No Action omeprazole 20 mg capsule,delayed release(DR/EC) 20 mg PO DAILY PRN (Reason: GERD) Qty: 90 RF: 3 sildenafil [Viagra] 100 mg tablet 100 mg PO as directed MDD 100 mg Qty: 10 RF: 6 blood-glucose meter 1 EACH misc 1 ea Miscellaneous DAILY Qty: 1 RF: 1 lancets 1 EACH misc 1 ea Miscellaneous DAILY Qty: 100 RF: 4 calcitriol 0.25 MCG capsule 0.25 mcg PO DAILY Qty: 90 RF: 3 magnesium gluconate 27 MG tablet 2 tab PO BID RF: 0 mycophenolate mofetil [CellCept] 250 MG capsule 250 mg PO BID RF: 0 tacrolimus [Prograf] 1 MG capsule 3 mg PO BID RF: 0 K-Phos Original 500 MG tablet,soluble 3 tab PO BID RF: 0 tamsulosin 0.4 MG capsule 0.4 mg PO DAILY RF: 0 ascorbic acid (vitamin C) [Vitamin C] 500 MG capsule, extended release 500 mg PO TID RF: 0 OneTouch Ultra Test 1 EACH strip 1 ea Miscellaneous BID Qty: 180 RF: 3 oxycodone 5 MG capsule 5 mg PO HS MDD 3 RF: 0 glipizide [Glucotrol XL] 5 mg tablet extended release 24hr 5 mg PO DAILY Qty: 90 RF: 3 clopidogrel [Plavix] 75 mg tablet 75 mg PO DAILY Qty: 90 RF: 4 levothyroxine 137 mcg tablet 137 mcg PO DAILY Qty: 90 RF: 3 Discharge Instructions Instructions: Elbow Bursitis (ED) Additional Instructions: Please take the Keflex as directed. Please gently wrap your forearm with the Robby wrap. Keep the Lidoderm patch on for the next 12 hours. Please then take it off for 12 hours and then put a new patch on. If you notice any worsening of your symptoms, or any new symptoms such as spreading redness, worsening swelling, worsening pain, omiting, diarrhea, fever, chills, shortness of breath, chest pain, numbness, weakness, or fainting , please return immediately to the emergency department for reevaluation. Please follow up with your primary care provider as soon as possible for reassessment and reevaluation. As always, it was a pleasure participating in your medical care today. Referrals: Sonu Vanegas MD [ [facility] STAFF PHYSICIAN] - Medical Decision Making This is a 68-year-old male with a past medical history of kidney transplant on CellCept and Prograf, who presents today for evaluation of swelling and pain in the left elbow and left forearm. There is also notable redness albeit mild around the elbow and forearm. He denies any trauma. He denies any fever or chills. He has had bursitis in the past but he states that it was not this severe. Exam demonstrates notable pain with even subtle movement of the left elbow, and because of the pain range of motion is significantly decreased. Vital signs are notably reassuring with no tachycardia or fever. Because of the patient's immunocompromise state I am concerned for potential infected elbow, infective bursitis or septic joint. Although he does not show the clinical signs of significant sepsis at this time I do feel that a laboratory evaluation is indicated to further rule out this acute pathology. We will get an x-ray to rule out acute fracture, as well as ultrasound to rule out DVT in his vascularly atypical upper extremity causing his swelling and pain. 1:23 PM Laboratory work-up has returned, the patient has no evidence of a white count, severe left shift, bandemia, he does have a minimally elevated ESR, and an elevated CRP at 1.5. This would signify an acute etiology, his vital signs remained stable, he demonstrates no evidence of tachycardia, fever, or hypotension. On reevaluation the patient continues to have radiation of pain to the posterior aspect, making his signs and symptoms clinically consistent with an infected bursitis, and not a septic joint. I contacted Dr. Vanegas and discussed the case with him, he does recommend Keflex over clindamycin for treatment of this, and close follow-up in the next week. With no other significant abnormalities on x-ray, no evidence of DVT on ultrasound, I feel he can be safely discharged home. Had a long discussion regarding red flags which to immediately return, the importance of close and prompt follow-up. I have extensively reviewed the treatment plan and discharge instructions with the patient and their family. I have addressed all patient concerns at this time. The patient and family was made aware of what symptoms to monitor for that would warrant a return to the emergency department. Discussed the plan with the patient and family, they demonstrate verbal understanding and agreement with our assessment and plan at this time. Exam(s) a US:US upper extremity venous LT SYMPTOMS/DIAGNOSIS: SWELLING, PAIN, REDNESS, LEFT ELBOW; NO TRAUMA; ? DVT LEFT UPPER EXTREMITY ULTRASOUND: The visualized portions of the left jugular and subclavian veins are unremarkable. The axillary, brachial, basilic and cephalic veins show no filling defect to suggest venous thrombosis. IMPRESSION: No evidence of a left upper extremity venous thrombus. Ordered By: Richard San DO Exam(s) a RAD:XR elbow LT complete SYMPTOMS/DIAGNOSIS: SWELLING, PAIN, REDNESS, LEFT ELBOW; NO TRAUMA LEFT ELBOW: Four views. No priors. No acute fracture or dislocation is seen. There are degenerative changes seen about the left elbow. There is an enthesophyte at the olecranon. There are densities anterior to the distal humerus, which may be loose bodies. IMPRESSION: No acute abnormality. Ordered By: Richard San DO HPI General Date/Time Provider Initiated Documentation: 11/10/18 10:49 . 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 the patient states that the symptoms started yesterday, he denies any traumatic event or excessive use with the left arm. He is right-hand dominant. He states that throughout the night the pain was notably worse with any movement of his left elbow whatsoever. This morning he noticed that there was swelling in his entire left upper extremity from the elbow down, it was warm, and notably tender to the touch with any movement. He denies any fever or chills. He denies any history of DVT. Aside for the Plavix he is not on any blood thinner. He denies any previous issues like this in the past in his arm, he does admit to previous bursitis but never to this severity with the significant swelling warmth and pain. He denies any recent antibiotic use. He has no other complaints or modifying factors at this time. Related Data Home Medications Medication Instructions Recorded Confirmed blood-glucose meter #1 ea 09/27/14 11/10/18 calcitriol 0.25 mcg PO DAILY #90 tab 09/27/14 11/10/18 lancets #100 ea 09/27/14 11/10/18 magnesium gluconate 2 tab PO BID 04/15/16 11/10/18 mycophenolate mofetil [Cellcept] 250 mg PO BID 04/15/16 11/10/18 potassium phosphate, monobasic 3 tab PO BID 04/15/16 11/10/18 [K-Phos Original] tacrolimus [Prograf] 3 mg PO BID 04/15/16 11/10/18 tamsulosin 0.4 mg PO DAILY tab-cap 04/15/16 11/10/18 ascorbic acid (vitamin C) [Vitamin 500 mg PO TID 09/05/16 11/10/18 C] blood sugar diagnostic [Onetouch #180 strip 11/04/16 11/10/18 Ultra Test Strips] oxycodone 5 mg PO HS tab NS MDD 3 01/08/18 11/10/18 glipizide ER 5 mg tablet, extended 5 mg PO DAILY #90 tab-cap 03/30/18 11/10/18 release 24 hr clopidogrel 75 mg tablet 75 mg PO DAILY #90 tab-cap 06/10/18 11/10/18 omeprazole 20 mg capsule,delayed 20 mg PO DAILY PRN #90 cap 06/15/18 11/10/18 release sildenafil 100 mg tablet 100 mg PO as directed #10 tab-cap 06/15/18 11/10/18 MDD 100 mg levothyroxine 137 mcg tablet 137 mcg PO DAILY #90 tab-cap 07/14/18 11/10/18 cephalexin [Keflex] 500 mg PO QID 10 Days #40 cap 11/10/18 hydrocodone-acetaminophen [Lawtey] 1 tab PO Q6H #6 tab 11/10/18 Previous Rx's Medication Instructions Recorded glipizide ER 5 mg tablet, extended 5 mg PO DAILY #90 tab-cap 03/30/18 release 24 hr clopidogrel 75 mg tablet 75 mg PO DAILY #90 tab-cap 06/10/18 omeprazole 20 mg capsule,delayed 20 mg PO DAILY PRN #90 cap 06/15/18 release sildenafil 100 mg tablet 100 mg PO as directed #10 tab-cap 06/15/18 MDD 100 mg levothyroxine 137 mcg tablet 137 mcg PO DAILY #90 tab-cap 07/14/18 cephalexin [Keflex] 500 mg PO QID 10 Days #40 cap 11/10/18 hydrocodone-acetaminophen [Lawtey] 1 tab PO Q6H #6 tab 11/10/18 Allergies Allergy/AdvReac Type Severity Reaction Status Date / Time No Known Allergies Allergy Verified 11/10/18 10:55 General Stated Complaint: Cellulitis ALICIA: 3 Review of Systems Review of Systems All systems reviewed & are unremarkable except as noted in HPI and below PFSH Social History Smoking/Tobacco Use Status: Former Tobacco Use Alcohol Intake: current Alcohol Intake frequency: holidays/special occasions only Drug use: Occasionally Substance use type: marijuana Do you feel safe at home: Yes Do you feel safe in your relationship?: Yes Exam Narrative Exam Narrative: 1.Const: Well-nourished, Well-developed, appearing stated age 2.Eyes: PERRL, no conjunctival injection, and symmetrical lids. 3.ENT: Atraumatic external nose and ears. Moist MM. Neck: Symmetric, trachea midline, No thyromegaly. 4.CVS: +S1/S2, No murmurs or gallops. Peripheral pulses 2+ and equal in all extremities. Brisk capillary refill in all extremities. 5.RESP: Unlabored respiratory effort. Clear to auscultation bilaterally. No wheezes rales or rhonchi 6.GI: Soft, Nontender/Nondistended, No hepatosplenomegaly. No guarding or rebound. 7.MSK: Normocephalic/Atraumatic, Extremities w/o deformity. No cyanosis or clubbing, left upper extremity demonstrates notable warmth and subtle minimal erythema for the left upper extremity over the posterior aspect of the, warmth is present over the elbow, forearm, and slightly proximal to the elbow. Notable reproducible tenderness on light touch and with minimal movement at the elbow, primarily on the posterior aspect by the olecranon bursa. No crepitus. No evidence of significant deformity. AV fistula is present, palpable thrill. Capillary refill is brisk and distal to this, radial pulses +2 bilaterally. Sensation intact for the entire upper extremity on the left and the right. The patient has worsening of his elbow pain with flexion and extension of the wrist as well as movements of the fingers. Mild edema in the left upper extremity when compared to the right. No pain in the shoulder or pain with movement of the shoulder. No evidence of significant swelling around the elbow itself, no evidence of fluctuance. 8.Skin: Please see musculoskeletal for description of skin 9.Neuro: manager estate II-XII grossly intact. Sensation grossly intact, no focal neurologic deficits. 10.Psych: (AAO) x3. Appropriate mood and affect Course Vital Signs Temperature 37 C 11/10/18 10:53 Pulse 64 11/10/18 10:53 Respiratory Rate 18 11/10/18 10:53 Blood Pressure 161/79 H 11/10/18 10:53 Pulse Oximetry 96 11/10/18 10:53 Temperature 37 C 11/10/18 10:53 Temperature Source Temporal Artery Scan 11/10/18 10:53 Pulse 64 11/10/18 10:53 Respiratory Rate 18 11/10/18 10:53 Respiratory Effort Non-Labored 11/10/18 10:53 Blood Pressure 161/79 H 11/10/18 10:53 Blood Pressure Position Sitting 11/10/18 10:53 Pulse Oximetry 96 11/10/18 10:53 Oxygen Delivery Method Room Air 11/10/18 10:53 Oxygen Flow Rate 0 11/10/18 10:53 Pain Level 8 11/10/18 10:53 Lab/Test Results Lab/Test Results: 11/10/18 10:59 Blood Blood Culture - Pending 11/10/18 10:59 Blood Blood Culture - Pending
[2018-11-10 11:16] LABS: Lactate-non-spesis 1.1 mmol/l (0.6-1.4)
[2018-11-10 11:21] LABS: Abs Immature Grans 0.02 k/cumm (0.0-0.09); Absolute Basophil Count 0.03 k/cumm (0.0-0.2); Absolute Eosinophil Count 0.14 k/cumm (0.0-0.7); Absolute Lymphocyte Count 1.43 k/cumm (1.2-3.4); Absolute Monocyte Count 0.73 k/cumm (0.11-0.7); Absolute Neutrophil Count 7.52 k/cumm (1.2-6.7); Basophils % 0.3; Eosinophils % 1.4; HCT 44.8 % (40.0-50.0); HGB 15.5 g/dL (13.5-17.5); Immature Grans % 0.2; Lymphocytes % 14.5; Mean Corp. HGB Concentration 34.6 g/dL (32.0-36.0); Mean Corpuscular Hemoglobin 30.9 pg (27.0-33.0); Mean Corpuscular Volume 89.4 fL (80-95); Mean Platelet Volume 9.7 fL (8.0-11.0); Monocytes % 7.4; Neutrophils % 76.2; Platelet Count 250 x1000/uL (130-400); RBC 5.01 m/cumm (4.50-6.00); RBC Distribution Width 13.8 % (11.8-14.1); White Blood Cell Count 9.87 k/cumm (4.4-10.8)
[2018-11-10 11:36] LABS: ALT 30 U/L (12-78); AST 17 U/L (15-37); Albumin 3.3 g/dL (3.4-5.0); Alkaline Phosphatase 73 U/L (46-116); Anion Gap 10.2 mmol/L (3-11); BUN 17 mg/dL (7-18); Bilirubin, Total 2.5 mg/dL (0.2-1.0); CO2 26.8 mmol/L (21.0-32.0); Chloride 101 mmol/L (98-107); Estimated GFR 54.57 (mL/min/1.73m2); Glucose 150 mg/dL (70-100); Potassium 3.5 mmol/L (3.5-5.1); Sodium 138 mmol/L (136-145); Total Protein 7.5 g/dL (6.4-8.2)
[2018-11-10 11:56] LABS: ESR 22 MM/HR (1-20)
[2018-11-10] MEDS: Lidocaine 5% Patch 1 PATCH TP (12:30)
[2018-11-10] MEDS: MORPHine 10 MG/ML VIAL 2 MG IVP (12:30)
[2018-11-10] MEDS: Cephalexin 500 MG CAP PO (13:33)
[2018-11-10 13:35] VITALS: PULSE 84; RESP 20; TEMP 37; O2SAT 96
== END 2018-11-10 13:35 | disposition home or self-care (01) ==
PROVIDERS: Emergency Provider Student in an Organized Health Care Education/Training Program; PCP Emergency Medicine
DX: M70.22 Olecranon bursitis, left elbow (principal); R60.0 Localized edema; I77.0 Arteriovenous fistula, acquired; E11.22 Type 2 diabetes mellitus with diabetic chronic kidney disease; Z79.84 Long term (current) use of oral hypoglycemic drugs; Z92.25 Personal history of immunosuppression therapy; Z94.0 Kidney transplant status; I10 Essential (primary) hypertension
CPT/HCPCS: 36415; 80053; 85652; 87040; 96374; 99284; 73080; 83605; 85025; 86140; 93971; 99285; J2270

== ENCOUNTER 2018-11-17 09:21 | Outpatient (CLI) | payer MEDICARE, OTHER, SELFPAY ==
--- NOTE | 2018-11-17 09:14 | DI.RAD_ITS ---
SYMPTOM/DIAGNOSIS: F/U RT TKA RIGHT KNEE: Two views were obtained and show total knee joint replacement in position. The components appear well seated. No other bony abnormality is seen.
== END 2018-11-17 09:41 ==
PROVIDERS: PCP Emergency Medicine; Referring Provider Emergency Medicine; Visit Provider Student in an Organized Health Care Education/Training Program
DX: Z96.651 Presence of right artificial knee joint (principal); M25.661 Stiffness of right knee, not elsewhere classified; T84.89XA Other specified complication of internal orthopedic prosthetic devices, implants and grafts, initial encounter; M19.022 Primary osteoarthritis, left elbow; M70.22 Olecranon bursitis, left elbow; M24.022 Loose body in left elbow
CPT/HCPCS: 99203; 99214; 73560

== ENCOUNTER → 2018-12-15 08:21 | Outpatient (BNVA) | payer MEDICARE, OTHER, SELFPAY | PROVIDERS: PCP Emergency Medicine; Referring Provider Emergency Medicine; Visit Provider Student in an Organized Health Care Education/Training Program | DX: Z96.651 Presence of right artificial knee joint (principal); M24.661 Ankylosis, right knee; M70.22 Olecranon bursitis, left elbow; Z95.828 Presence of other vascular implants and grafts; I12.9 Hypertensive chronic kidney disease with stage 1 through stage 4 chronic kidney disease, or unspecified chronic kidney disease; N18.9 Chronic kidney disease, unspecified; E11.22 Type 2 diabetes mellitus with diabetic chronic kidney disease | CPT/HCPCS: 99211; 99213 ==

== ENCOUNTER 2018-12-17 13:39 | Outpatient (CLI) | payer MEDICARE, OTHER, SELFPAY ==
[2018-12-17 14:11] LABS: HCT 46.1 % (40.0-50.0); HGB 16.2 g/dL (13.5-17.5); Mean Corp. HGB Concentration 35.1 g/dL (32.0-36.0); Mean Corpuscular Hemoglobin 31.8 pg (27.0-33.0); Mean Corpuscular Volume 90.4 fL (80-95); Mean Platelet Volume 9.9 fL (8.0-11.0); Platelet Count 239 x1000/uL (130-400); White Blood Cell Count 8.12 k/cumm (4.4-10.8)
[2018-12-17 14:26] LABS: Bilirubin Negative (Negative); Blood Negative (Negative); Clarity Clear; Glucose Negative (Negative); Ketones Negative (Negative); Leukocyte Esterase Negative (Negative); Nitrite Negative (Negative); Urobilinogen 0.2 EU/dL (Up TO 0.2)
[2018-12-17 14:37] LABS: COMMENT (LAB VIEW ONLY) 181.73 mg/dL; PROTEIN 173.5 mg/dL; Prot/Crea Ur Ratio 0.95
[2018-12-17 14:51] LABS: Epithelial Cells Negative HPF (Negative); RBC 0-2 (0-2); WBC 0-2 HPF (0-5)
[2018-12-17 14:52] LABS: Bacteria Negative HPF (Negative); C & S Indicated? No; Casts Negative LPF (Negative); Crystals Many Calcium Oxalate HPF (Negative); Mucus Negative (Negative); Other Cells Negative (Negative)
[2018-12-17 15:34] LABS: ALT 31 U/L (12-78); AST 18 U/L (15-37); Albumin 3.4 g/dL (3.4-5.0); Alkaline Phosphatase 78 U/L (46-116); Anion Gap 12.1 mmol/L (3-11); BUN 20 mg/dL (7-18); CO2 25.9 mmol/L (21.0-32.0); CREATININE 1.51 mg/dL (0.70-1.30); Calcium 9.6 mg/dL (8.5-10.1); Chloride 103 mmol/L (98-107); Estimated GFR 45.91 (mL/min/1.73m2); Glucose 176 mg/dL (70-100); Magnesium 1.6 mg/dL (1.8-2.4); Potassium 3.4 mmol/L (3.5-5.1); Sodium 141 mmol/L (136-145); Total Protein 7.2 g/dL (6.4-8.2); Uric Acid 8.3 mg/dL (3.5-7.2)
[2018-12-17 15:42] LABS: Cholesterol 134 mg/dL (50-200)
[2018-12-17 15:46] LABS: Bilirubin, Total 1.7 mg/dL (0.2-1.0)
[2018-12-18 13:04] LABS: Tacrolimus 8.3 ng/ml
== END 2018-12-17 13:59 ==
PROVIDERS: PCP Emergency Medicine; Visit Provider Internal Medicine Nephrology
DX: Z94.0 Kidney transplant status (principal); Z79.899 Other long term (current) drug therapy
CPT/HCPCS: 36415; 80053; 85027; 80197; 81003; 81015; 82465; 82565; 83735; 84100; 84156; 84550

== ENCOUNTER 2019-03-02 09:29 | Outpatient (RCR) | payer MEDICARE, OTHER, SELFPAY | END 2019-03-05 23:59 | disposition home or self-care (01) | LOC: CR 09:29 | PROVIDERS: PCP Emergency Medicine; Visit Provider Family Medicine | DX: Z51.89 Encounter for other specified aftercare (principal) ==

== ENCOUNTER 2019-03-24 13:28 | Outpatient (CLI) | payer MEDICARE, OTHER, SELFPAY ==
[2019-03-24 13:55] LABS: Abs Immature Grans 0.02 k/cumm (0.0-0.09); Absolute Basophil Count 0.04 k/cumm (0.0-0.2); Absolute Eosinophil Count 0.25 k/cumm (0.0-0.7); Absolute Lymphocyte Count 1.91 k/cumm (1.2-3.4); Absolute Monocyte Count 0.68 k/cumm (0.11-0.7); Absolute Neutrophil Count 6.28 k/cumm (1.2-6.7); Basophils % 0.4; Eosinophils % 2.7; HCT 43.4 % (40.0-50.0); HGB 14.8 g/dL (13.5-17.5); Immature Grans % 0.2; Lymphocytes % 20.8; Mean Corp. HGB Concentration 34.1 g/dL (32.0-36.0); Mean Corpuscular Hemoglobin 30.5 pg (27.0-33.0); Mean Corpuscular Volume 89.5 fL (80-95); Mean Platelet Volume 9.5 fL (8.0-11.0); Monocytes % 7.4; Neutrophils % 68.5; Platelet Count 295 x1000/uL (130-400); RBC 4.85 m/cumm (4.50-6.00); RBC Distribution Width 14.7 % (11.8-14.1); White Blood Cell Count 9.18 k/cumm (4.4-10.8)
[2019-03-24 13:58] LABS: Bilirubin Negative (Negative); Blood Negative (Negative); Clarity Clear (Clear); Glucose Negative (Negative); Ketones Negative (Negative); Leukocyte Esterase Negative (Negative); Nitrite Negative (Negative); Specific Gravity 1.015 (1.005-1.025); Urobilinogen 0.2 EU/dL (Up TO 0.2)
[2019-03-24 14:02] LABS: Hemoglobin A1C 6.5 % (4.5-6.2)
[2019-03-24 14:55] LABS: Epithelial Cells Rare HPF (Negative); WBC Negative HPF (0-5)
[2019-03-24 14:56] LABS: Bacteria Negative HPF (Negative); C & S Indicated? No; Casts Negative LPF (Negative); Crystals Mod Calcium Oxalate HPF (Negative); Mucus Negative (Negative); Other Cells Few Transitional (Negative)
[2019-03-24 15:05] LABS: ALT 27 U/L (16-63); AST 19 U/L (15-37); Albumin 3.5 g/dL (3.4-5.0); Alkaline Phosphatase 71 U/L (46-116); Anion Gap 10.7 mmol/L (3-11); BUN 15 mg/dL (7-18); Bilirubin, Total 2.6 mg/dL (0.2-1.0); CO2 28.3 mmol/L (21.0-32.0); CREATININE 1.47 mg/dL (0.70-1.30); Calcium 9.7 mg/dL (8.5-10.1); Chloride 103 mmol/L (98-107); Estimated GFR 47.36 (mL/min/1.73m2); Glucose 129 mg/dL (70-100); Potassium 3.3 mmol/L (3.5-5.1); Sodium 142 mmol/L (136-145); Total Protein 7.3 g/dL (6.4-8.2)
== END 2019-03-24 13:48 ==
PROVIDERS: PCP Emergency Medicine; Visit Provider Emergency Medicine
DX: E03.9 Hypothyroidism, unspecified (principal); Z94.0 Kidney transplant status; R30.0 Dysuria; E11.9 Type 2 diabetes mellitus without complications
CPT/HCPCS: 36415; 80053; 81003; 81015; 83036; 84443; 85025

== ENCOUNTER 2019-04-04 10:00 | Outpatient (RCR) | payer MEDICARE, OTHER, SELFPAY | END 2019-04-04 23:59 | disposition home or self-care (01) | LOC: CR 10:00 | PROVIDERS: PCP Emergency Medicine; Visit Provider Family Medicine | DX: I25.2 Old myocardial infarction (principal); Z95.5 Presence of coronary angioplasty implant and graft; Z51.89 Encounter for other specified aftercare | CPT/HCPCS: S9472 ==

== ENCOUNTER 2019-04-13 09:57 | Outpatient (CLI) | payer MEDICARE, OTHER, SELFPAY ==
[2019-04-13 12:07] LABS: ALT 24 U/L (16-63); AST 19 U/L (15-37); Albumin 3.4 g/dL (3.4-5.0); Alkaline Phosphatase 67 U/L (46-116); BUN 17 mg/dL (7-18); Bilirubin, Direct 0.22 mg/dL (0.00-0.20); Bilirubin, Total 2.5 mg/dL (0.2-1.0); CREATININE 1.37 mg/dL (0.70-1.30); Calcium 9.4 mg/dL (8.5-10.1); Chloride 104 mmol/L (98-107); Estimated GFR 51.37 (mL/min/1.73m2); Glucose 167 mg/dL (70-100); Potassium 4.2 mmol/L (3.5-5.1); Sodium 142 mmol/L (136-145); Total Protein 7.2 g/dL (6.4-8.2)
== END 2019-04-13 10:17 ==
PROVIDERS: PCP Emergency Medicine; Visit Provider Emergency Medicine
DX: R89.9 Unspecified abnormal finding in specimens from other organs, systems and tissues (principal); E11.9 Type 2 diabetes mellitus without complications; E03.9 Hypothyroidism, unspecified; Z94.0 Kidney transplant status
CPT/HCPCS: 36415; 80048; 80076

== ENCOUNTER 2019-04-22 08:58 | Outpatient (CLI) | payer MEDICARE, OTHER, SELFPAY | END 2019-04-22 09:18 | PROVIDERS: PCP Emergency Medicine; Referring Provider Emergency Medicine; Visit Provider Student in an Organized Health Care Education/Training Program | DX: M48.07 Spinal stenosis, lumbosacral region (principal); M25.562 Pain in left knee; I13.0 Hypertensive heart and chronic kidney disease with heart failure and stage 1 through stage 4 chronic kidney disease, or unspecified chronic kidney disease; I50.9 Heart failure, unspecified; E11.22 Type 2 diabetes mellitus with diabetic chronic kidney disease; N18.9 Chronic kidney disease, unspecified | CPT/HCPCS: 99214 ==

== ENCOUNTER 2019-04-28 01:06 | Outpatient (CLI) | payer MEDICARE, OTHER, SELFPAY ==
--- NOTE | 2019-04-28 10:43 | DI.MRI_ITS ---
EXAM: MR LUMBAR SPINE WO CLINICAL HISTORY: LEFT LEG PAIN, M48.00 SPINAL STENOSIS. TECHNIQUE: Multiplanar multisequence MRI was performed. MR examination lumbosacral spine was perfor med according to the usual protocol. COMPARISON: No exams were available for comparison FINDINGS: Note is made of peridiscal vertebral signal changes at L4-5 and L5-S1 consistent with disc degenerati on, and also to a lesser degree, at the other visualized disc levels. The conus medullaris appears intact. Mild disc bulges noted from T10-T11 through L1-2. At L2-3, there is a mild disc bulge. No disc herniation. Mild prominence of facet joints, borderlin e central canal spinal stenosis. No neural foraminal narrowing. At L3-4, there is a mild disc bulge. Mild facet hypertrophy noted bilaterally. No disc herniation. No neural foraminal stenosis. Borderline central canal spinal stenosis. At L4-5, there is prominence of the disc-osteophyte complex and severe facet hypertrophy bilaterally with resultant moderate to severe central canal spinal stenosis and mild bilateral neural foraminal s tenosis. No superimposed disc herniation seen. At L5-S1, there is moderate facet hypertrophy and a mild disc bulge. Mild bilateral neural foraminal stenosis. No central canal spinal stenosis or disc herniation. IMPRESSION: Multilevel degenerative findings as described above. Severe central canal spinal stenosis at L4-5. Please see above discussion for findings at individual levels.
== END 2019-04-28 01:26 ==
PROVIDERS: PCP Emergency Medicine; Visit Provider Student in an Organized Health Care Education/Training Program
DX: M48.061 Spinal stenosis, lumbar region without neurogenic claudication (principal); M79.605 Pain in left leg; M51.37 Other intervertebral disc degeneration, lumbosacral region
CPT/HCPCS: 72148

== ENCOUNTER 2019-05-04 11:43 | Outpatient (RCR) | payer MEDICARE, OTHER, SELFPAY | END 2019-05-05 23:59 | disposition home or self-care (01) | LOC: CR 11:43 | PROVIDERS: PCP Emergency Medicine; Visit Provider Family Medicine | DX: I25.2 Old myocardial infarction (principal); Z95.5 Presence of coronary angioplasty implant and graft; Z51.89 Encounter for other specified aftercare | CPT/HCPCS: S9472 ==

== ENCOUNTER 2019-06-01 11:34 | Outpatient (RCR) | payer MEDICARE, OTHER, SELFPAY | END 2019-06-04 23:59 | disposition home or self-care (01) | LOC: CR 11:34 | PROVIDERS: PCP Emergency Medicine; Visit Provider Family Medicine | DX: I25.2 Old myocardial infarction (principal); Z95.5 Presence of coronary angioplasty implant and graft; Z51.89 Encounter for other specified aftercare | CPT/HCPCS: S9472 ==

== ENCOUNTER 2019-06-17 11:13 | Outpatient (CLI) | payer MEDICARE, OTHER, SELFPAY ==
[2019-06-17 12:40] LABS: HCT 45.5 % (40.0-50.0); HGB 15.5 g/dL (13.5-17.5); Mean Corp. HGB Concentration 34.1 g/dL (32.0-36.0); Mean Corpuscular Volume 88.2 fL (80-95); Mean Platelet Volume 10.2 fL (8.0-11.0); Platelet Count 268 x1000/uL (130-400); RBC 5.16 m/cumm (4.50-6.00); RBC Distribution Width 13.4 % (11.8-14.1); White Blood Cell Count 8.27 k/cumm (4.4-10.8)
[2019-06-17 12:58] LABS: Bilirubin Negative (Negative); Blood Negative (Negative); Clarity Clear (Clear); Glucose Negative (Negative); Ketones Negative (Negative); Leukocyte Esterase Negative (Negative); Nitrite Negative (Negative); Urobilinogen 0.2 EU/dL (Up TO 0.2)
[2019-06-17 13:04] LABS: COMMENT (LAB VIEW ONLY) 148.21 mg/dL
[2019-06-17 13:10] LABS: PROTEIN 137.9 mg/dL; Prot/Crea Ur Ratio 0.93
[2019-06-17 13:10] LABS: ALT 23 U/L (16-63); AST 22 U/L (15-37); Albumin 3.5 g/dL (3.4-5.0); Alkaline Phosphatase 65 U/L (46-116); Anion Gap 12.2 mmol/L (3-11); BUN 16 mg/dL (7-18); Bilirubin, Total 2.7 mg/dL (0.2-1.0); CO2 25.8 mmol/L (21.0-32.0); CREATININE 1.33 mg/dL (0.70-1.30); Calcium 9.1 mg/dL (8.5-10.1); Chloride 104 mmol/L (98-107); Estimated GFR 53.16 (mL/min/1.73m2); Glucose 121 mg/dL (74-106); Magnesium 1.6 mg/dL (1.8-2.4); Potassium 3.7 mmol/L (3.5-5.1); Sodium 142 mmol/L (136-145)
[2019-06-17 13:12] LABS: Bacteria Negative HPF (Negative); Crystals Negative HPF (Negative); Epithelial Cells Negative HPF (Negative); Mucus Negative (Negative); WBC Negative HPF (0-5)
[2019-06-17 13:13] LABS: C & S Indicated? No; Casts 0-2 Hyaline LPF (Negative)
[2019-06-17 13:23] LABS: Uric Acid 6.4 mg/dL (3.5-7.2)
[2019-06-17 13:44] LABS: Cholesterol 77 mg/dL (<200)
[2019-06-18 12:17] LABS: Tacrolimus 8.7 ng/mL (See Note)
== END 2019-06-17 11:33 ==
PROVIDERS: PCP Emergency Medicine; Visit Provider Internal Medicine Nephrology
DX: Z94.0 Kidney transplant status (principal); Z79.899 Other long term (current) drug therapy
CPT/HCPCS: 36415; 80053; 85027; 80197; 81003; 81015; 82465; 82565; 83735; 84100; 84156; 84550

== ENCOUNTER 2019-06-22 11:43 | Outpatient (RCR) | payer MEDICARE, OTHER, SELFPAY | END 2019-07-05 23:59 | disposition home or self-care (01) | LOC: CR 11:43 | PROVIDERS: PCP Emergency Medicine; Visit Provider Family Medicine | DX: I25.2 Old myocardial infarction (principal); Z95.5 Presence of coronary angioplasty implant and graft; Z51.89 Encounter for other specified aftercare | CPT/HCPCS: S9472 ==

== ENCOUNTER 2019-07-13 09:00 | Outpatient (RCR) | payer OTHER, SELFPAY | END 2019-08-05 23:59 | disposition home or self-care (01) | LOC: CR 09:00 | PROVIDERS: PCP Emergency Medicine; Visit Provider Family Medicine | DX: I25.2 Old myocardial infarction (principal); Z95.5 Presence of coronary angioplasty implant and graft; Z51.89 Encounter for other specified aftercare | CPT/HCPCS: S9472 ==

== ENCOUNTER 2019-09-05 13:41 | Outpatient (CLI) | payer OTHER, SELFPAY | END 2019-09-05 14:01 | PROVIDERS: PCP Emergency Medicine; Visit Provider Nurse Practitioner | DX: E11.9 Type 2 diabetes mellitus without complications (principal) | CPT/HCPCS: 36415; 83036 ==

== ENCOUNTER 2019-12-15 02:42 | Outpatient (CLI) | payer OTHER, SELFPAY ==
[2019-12-15 11:01] LABS: HCT 46.3 % (40.0-50.0); HGB 15.9 g/dL (13.5-17.5); Mean Corp. HGB Concentration 34.3 g/dL (32.0-36.0); Mean Corpuscular Hemoglobin 30.8 pg (27.0-33.0); Mean Corpuscular Volume 89.6 fL (80-95); Mean Platelet Volume 9.4 fL (8.0-11.0); Platelet Count 270 x1000/uL (130-400); RBC 5.17 m/cumm (4.50-6.00); RBC Distribution Width 13.7 % (11.8-14.1); White Blood Cell Count 7.11 k/cumm (4.4-10.8)
[2019-12-15 11:11] LABS: Bilirubin Negative (Negative); Blood Negative (Negative); Clarity Clear (Clear); Glucose Negative (Negative); Ketones Negative (Negative); Leukocyte Esterase Negative (Negative); Nitrite Negative (Negative); Urobilinogen 0.2 EU/dL (Up TO 0.2)
[2019-12-15 11:22] LABS: Hemoglobin A1C 6.8 % (3.8-5.6)
[2019-12-15 11:23] LABS: Prot/Crea Ur Ratio 0.82
[2019-12-15 11:48] LABS: WBC 0-2 HPF (0-5)
[2019-12-15 11:49] LABS: Bacteria Rare HPF (Negative); C & S Indicated? No; Casts 0-2 Coarse Granular LPF (Negative); Crystals Negative HPF (Negative); Epithelial Cells Rare HPF (Negative); Mucus Negative (Negative); RBC 0-2 HPF (0-2)
[2019-12-15 12:02] LABS: Cholesterol 89 mg/dL (<200)
[2019-12-15 12:03] LABS: ALT 31 U/L (16-63); AST 25 U/L (15-37); Albumin 3.5 g/dL (3.4-5.0); Alkaline Phosphatase 83 U/L (46-116); Anion Gap 9.1 mmol/L (3-11); BUN 13 mg/dL (7-18); Bilirubin, Total 2.5 mg/dL (0.2-1.0); CO2 29.9 mmol/L (21.0-32.0); CREATININE 1.29 mg/dL (0.70-1.30); Calcium 9.3 mg/dL (8.5-10.1); Chloride 103 mmol/L (98-107); Estimated GFR 54.91 (mL/min/1.73m2); Glucose 135 mg/dL (74-106); Magnesium 1.7 mg/dL (1.8-2.4); PHOSPHORUS 2.9 mg/dL (2.6-4.7); Potassium 3.4 mmol/L (3.5-5.1); Sodium 142 mmol/L (136-145); Total Protein 7.1 g/dL (6.4-8.2); Uric Acid 6.1 mg/dL (3.5-7.2)
[2019-12-16 13:47] LABS: Tacrolimus 12.9 ng/mL (See Note)
== END 2019-12-15 03:02 ==
PROVIDERS: Internal Medicine Nephrology; PCP Emergency Medicine; Visit Provider Nurse Practitioner
DX: E11.49 Type 2 diabetes mellitus with other diabetic neurological complication (principal); Z94.0 Kidney transplant status; Z79.899 Other long term (current) drug therapy; Z51.81 Encounter for therapeutic drug level monitoring
CPT/HCPCS: 36415; 80053; 85027; 80197; 81003; 81015; 82465; 82565; 83036; 83735; 84100; 84156; 84550

== ENCOUNTER 2019-12-20 01:31 | Outpatient (CLI) | payer OTHER, SELFPAY ==
[2019-12-20 07:48] LABS: HCT 46.1 % (40.0-50.0); HGB 15.7 g/dL (13.5-17.5); Mean Corp. HGB Concentration 34.1 g/dL (32.0-36.0); Mean Corpuscular Hemoglobin 30.6 pg (27.0-33.0); Mean Corpuscular Volume 89.9 fL (80-95); Mean Platelet Volume 9.7 fL (8.0-11.0); Platelet Count 270 x1000/uL (130-400); RBC 5.13 m/cumm (4.50-6.00); RBC Distribution Width 13.7 % (11.8-14.1); White Blood Cell Count 6.93 k/cumm (4.4-10.8)
[2019-12-20 08:03] LABS: Bilirubin Negative (Negative); Blood Trace-intact (Negative); Clarity Clear (Clear); Glucose Negative (Negative); Ketones Negative (Negative); Leukocyte Esterase Negative (Negative); Nitrite Negative (Negative); Urobilinogen 0.2 EU/dL (Up TO 0.2)
[2019-12-20 08:19] LABS: PROTEIN 53.5 mg/dL
[2019-12-20 08:25] LABS: Bacteria Negative HPF (Negative); C & S Indicated? No; Casts 0-2 Hyaline LPF (Negative); Crystals Negative HPF (Negative); Epithelial Cells Negative HPF (Negative); Mucus Negative (Negative); Other Cells Rare Transitional (Negative); WBC Negative HPF (0-5)
[2019-12-20 08:27] LABS: Cholesterol 90 mg/dL (<200)
[2019-12-20 08:28] LABS: ALT 30 U/L (16-63); AST 22 U/L (15-37); Albumin 3.5 g/dL (3.4-5.0); Alkaline Phosphatase 77 U/L (46-116); Anion Gap 9.2 mmol/L (3-11); BUN 21 mg/dL (7-18); Bilirubin, Total 2.2 mg/dL (0.2-1.0); CO2 26.8 mmol/L (21.0-32.0); CREATININE 1.45 mg/dL (0.70-1.30); Calcium 9.1 mg/dL (8.5-10.1); Chloride 104 mmol/L (98-107); Estimated GFR 47.98 (mL/min/1.73m2); Glucose 160 mg/dL (74-106); Magnesium 1.6 mg/dL (1.8-2.4); PHOSPHORUS 2.9 mg/dL (2.6-4.7); Potassium 3.7 mmol/L (3.5-5.1); Sodium 140 mmol/L (136-145); Uric Acid 6.9 mg/dL (3.5-7.2)
[2019-12-20 08:32] LABS: COMMENT (LAB VIEW ONLY) 77.16 mg/dL; Prot/Crea Ur Ratio 0.69
[2019-12-20 08:37] LABS: TSH 3.28 uIU/mL (0.36-3.74)
[2019-12-21 13:35] LABS: Tacrolimus 11.8 ng/mL (See Note)
== END 2019-12-20 01:51 ==
PROVIDERS: Internal Medicine Nephrology; PCP Emergency Medicine; Visit Provider Emergency Medicine
DX: E03.9 Hypothyroidism, unspecified (principal); Z94.0 Kidney transplant status; Z79.899 Other long term (current) drug therapy; Z51.81 Encounter for therapeutic drug level monitoring
CPT/HCPCS: 36415; 80053; 85027; 80197; 81003; 81015; 82465; 82565; 83735; 84100; 84156; 84443; 84550

== ENCOUNTER 2020-01-10 02:15 | Outpatient (CLI) | payer OTHER, SELFPAY ==
[2020-01-10 08:57] LABS: HCT 46.8 % (40.0-50.0); HGB 16.1 g/dL (13.5-17.5); Mean Corp. HGB Concentration 34.4 g/dL (32.0-36.0); Mean Corpuscular Hemoglobin 30.7 pg (27.0-33.0); Mean Corpuscular Volume 89.1 fL (80-95); Mean Platelet Volume 9.4 fL (8.0-11.0); Platelet Count 250 x1000/uL (130-400); RBC 5.25 m/cumm (4.50-6.00); RBC Distribution Width 13.3 % (11.8-14.1)
[2020-01-10 09:11] LABS: Bilirubin Negative (Negative); Blood Negative (Negative); Clarity Clear (Clear); Glucose Negative (Negative); Ketones Negative (Negative); Leukocyte Esterase Negative (Negative); Nitrite Negative (Negative); Urobilinogen 0.2 EU/dL (Up TO 0.2)
[2020-01-10 09:22] LABS: PROTEIN 44.6 mg/dL
[2020-01-10 09:23] LABS: COMMENT (LAB VIEW ONLY) 51.65 mg/dL; Prot/Crea Ur Ratio 0.86
[2020-01-10 09:32] LABS: Bacteria Rare HPF (Negative); C & S Indicated? No; Casts Negative LPF (Negative); Crystals Negative HPF (Negative); Epithelial Cells Rare HPF (Negative); Mucus Negative (Negative); Other Cells Rare Renal (Negative); RBC 0-2 HPF (0-2); WBC 0-2 HPF (0-5)
[2020-01-10 10:07] LABS: Cholesterol 89 mg/dL (<200)
[2020-01-10 10:08] LABS: ALT 30 U/L (16-63); AST 22 U/L (15-37); Albumin 3.6 g/dL (3.4-5.0); Alkaline Phosphatase 71 U/L (46-116); Anion Gap 10.2 mmol/L (3-11); BUN 19 mg/dL (7-18); Bilirubin, Total 2.5 mg/dL (0.2-1.0); CO2 28.8 mmol/L (21.0-32.0); CREATININE 1.33 mg/dL (0.70-1.30); Calcium 9.2 mg/dL (8.5-10.1); Chloride 103 mmol/L (98-107); Glucose 167 mg/dL (74-106); Magnesium 1.7 mg/dL (1.8-2.4); PHOSPHORUS 2.7 mg/dL (2.6-4.7); Potassium 3.7 mmol/L (3.5-5.1); Sodium 142 mmol/L (136-145); Total Protein 7.2 g/dL (6.4-8.2); Uric Acid 6.5 mg/dL (3.5-7.2)
== END 2020-01-10 02:35 ==
PROVIDERS: PCP Emergency Medicine; Visit Provider Internal Medicine Nephrology
DX: Z94.0 Kidney transplant status (principal); Z79.899 Other long term (current) drug therapy; Z51.81 Encounter for therapeutic drug level monitoring
CPT/HCPCS: 36415; 80053; 85027; 80197; 81003; 81015; 82465; 82565; 83735; 84100; 84156; 84550

== ENCOUNTER 2020-03-21 04:05 | Outpatient (CLI) | payer OTHER, SELFPAY ==
[2020-03-21 14:30] LABS: HCT 46.7 % (40.0-50.0); HGB 16.2 g/dL (13.5-17.5); MCH 30.9 pg (27.0-33.0); MCHC 34.7 % (32.0-36.0); MCV 89.1 fL (80-95); MPV 9.4 fL (8.0-11.0); Platelet Count 244 10^3/uL (130-400); RBC 5.24 10^6/uL (4.36-5.78); RDW-SD 42.3 fL; WBC 9.48 10^3/uL (4.4-10.8)
[2020-03-21 14:37] LABS: Bilirubin Negative (Negative); Blood Moderate (Negative); Clarity Clear (Clear); Glucose Negative (Negative); Ketones Negative (Negative); Leukocyte Esterase Negative (Negative); Nitrite Negative (Negative); Specific Gravity 1.025 (1.005-1.025); Urobilinogen 0.2 EU/dL (Up TO 0.2); pH 6.5 (5-8)
[2020-03-21 14:52] LABS: Bacteria Rare HPF (Negative); C & S Indicated? No; Casts Negative LPF (Negative); Crystals Negative HPF (Negative); Epithelial Cells Few HPF (Negative); Mucus Negative (Negative); Other Cells Negative (Negative); RBC >50 HPF (0-2); WBC 0-2 HPF (0-5)
[2020-03-21 14:56] LABS: PROTEIN 95.9 mg/dL
[2020-03-21 14:57] LABS: COMMENT (LAB VIEW ONLY) 229.67 mg/dL; Prot/Crea Ur Ratio 0.41
[2020-03-21 15:22] LABS: Cholesterol 89 mg/dL (<200)
[2020-03-21 15:30] LABS: ALT 37 U/L (16-63); AST 26 U/L (15-37); Albumin 3.7 g/dL (3.4-5.0); Alkaline Phosphatase 75 U/L (46-116); Anion Gap 9.4 mmol/L (3-11); BUN 15 mg/dL (7-18); Bilirubin, Total 3.7 mg/dL (0.2-1.0); CO2 27.6 mmol/L (21.0-32.0); CREATININE 1.48 mg/dL (0.70-1.30); Calcium 9.9 mg/dL (8.5-10.1); Chloride 103 mmol/L (98-107); Estimated GFR 46.86 (mL/min/1.73m2); Glucose 117 mg/dL (74-106); Magnesium 1.5 mg/dL (1.8-2.4); PHOSPHORUS 3.5 mg/dL (2.6-4.7); Potassium 3.6 mmol/L (3.5-5.1); Sodium 140 mmol/L (136-145); Total Protein 7.1 g/dL (6.4-8.2); Uric Acid 7.1 mg/dL (3.5-7.2)
[2020-03-22 13:36] LABS: Tacrolimus 11.6 ng/mL (See Note)
== END 2020-03-21 04:25 ==
PROVIDERS: PCP Emergency Medicine; Visit Provider Internal Medicine Nephrology
DX: Z94.0 Kidney transplant status (principal); Z29.8 Encounter for other specified prophylactic measures; Z79.899 Other long term (current) drug therapy
CPT/HCPCS: 36415; 80053; 85027; 80197; 81003; 81015; 82465; 82565; 83735; 84100; 84156; 84550

== ENCOUNTER 2020-06-21 00:33 | Outpatient (CLI) | payer OTHER, SELFPAY ==
--- NOTE | 2020-06-21 | DI.RAD_ITS ---
EXAM: XR LUMBAR SPINE COMPLETE CLINICAL HISTORY: SPINAL STENOSIS,M48.061,F/U LT L4-5 DISCECTOMY/DECOMPRESSION TECHNIQUE: COMPARISON: CT CT ABDOMEN PELVIS WO from 06/12/2018 MR MR LUMBAR SPINE WO from 04/28/2019 FINDINGS: Seven views were obtained including flexion and extension lateral views. There is moderate to severe disc space loss of height at L5-S1, moderate loss of disc height also noted in lower thoracic and up per lumbar levels. There are very prominent hypertrophic endplate changes seen throughout the visual ized thoracic and lumbar spine. There are moderate to severe facet hypertrophic degenerative changes noted as well, most marked in the lower lumbar spine. There is no spondylolysis or spondylolisthesi s. There is no acute compression fracture, slight loss of height of T12 vertebral body appears to be en present on prior MR of April 2019 and presumably represents chronic change. Flexion and extensi on lateral views show somewhat limited motion but are otherwise unremarkable. IMPRESSION: Degenerative changes as described above. RADIATION DOSE DELIVERED: Total DLP
== END 2020-06-21 00:53 ==
PROVIDERS: PCP Emergency Medicine; Visit Provider Nurse Practitioner
DX: M48.061 Spinal stenosis, lumbar region without neurogenic claudication (principal); M47.817 Spondylosis without myelopathy or radiculopathy, lumbosacral region
CPT/HCPCS: 72110

== ENCOUNTER 2020-06-21 01:41 | Outpatient (CLI) | payer OTHER, SELFPAY ==
[2020-06-21 11:44] LABS: Bilirubin Negative (Negative); Clarity Clear (Clear); Glucose Negative (Negative); Ketones Negative (Negative); Leukocyte Esterase Negative (Negative); Nitrite Negative (Negative); Specific Gravity 1.025 (1.005-1.025); Urobilinogen 0.2 EU/dL (Up TO 0.2); pH 6.5 (5-8)
[2020-06-21 12:03] LABS: WBC 0-2 HPF (0-5)
[2020-06-21 12:04] LABS: Bacteria Rare HPF (Negative); Blood TR (Negative); Crystals Negative HPF (Negative); Epithelial Cells Rare HPF (Negative); Mucus Trace (Negative); Other Cells Rare Renal (Negative)
[2020-06-21 12:05] LABS: C & S Indicated? No
[2020-06-21 12:11] LABS: HCT 44.4 % (40.0-50.0); HGB 15.3 g/dL (13.5-17.5); MCH 30.8 pg (27.0-33.0); MCHC 34.5 % (32.0-36.0); MCV 89.3 fL (80-95); MPV 9.7 fL (8.0-11.0); Platelet Count 259 10^3/uL (130-400); RBC 4.97 10^6/uL (4.36-5.78); RDW 12.8 % (11.8-14.1); RDW-SD 41.2 fL; WBC 8.47 10^3/uL (4.4-10.8)
[2020-06-21 12:45] LABS: ALT 29 U/L (16-63); AST 20 U/L (15-37); Albumin 3.4 g/dL (3.4-5.0); Alkaline Phosphatase 82 U/L (46-116); Anion Gap 9.4 mmol/L (3-11); BUN 17 mg/dL (7-18); Bilirubin, Total 2.8 mg/dL (0.2-1.0); CO2 28.6 mmol/L (21.0-32.0); CREATININE 1.43 mg/dL (0.70-1.30); Calcium 9.6 mg/dL (8.5-10.1); Chloride 103 mmol/L (98-107); Estimated GFR 48.75 (mL/min/1.73m2); Glucose 166 mg/dL (74-106); Magnesium 1.4 mg/dL (1.8-2.4); PHOSPHORUS 3.4 mg/dL (2.6-4.7); Potassium 3.5 mmol/L (3.5-5.1); Sodium 141 mmol/L (136-145); Total Protein 7.1 g/dL (6.4-8.2); Uric Acid 7.1 mg/dL (3.5-7.2)
[2020-06-21 15:25] LABS: Cholesterol 87 mg/dL (<200)
[2020-06-21 15:42] LABS: PROTEIN 124.7 mg/dL
[2020-06-21 16:12] LABS: COMMENT (LAB VIEW ONLY) 133.25 mg/dL; Prot/Crea Ur Ratio 0.93
[2020-06-22 13:58] LABS: Tacrolimus 11.6 ng/mL (See Note)
== END 2020-06-21 02:01 ==
PROVIDERS: PCP Emergency Medicine; Visit Provider Internal Medicine Nephrology
DX: Z94.0 Kidney transplant status (principal); Z51.81 Encounter for therapeutic drug level monitoring; Z79.899 Other long term (current) drug therapy
CPT/HCPCS: 36415; 80053; 85027; 80197; 81003; 81015; 82465; 82565; 83735; 84100; 84156; 84550

== ENCOUNTER 2020-09-12 04:02 | Outpatient (CLI) | payer MEDICARE, SELFPAY ==
[2020-09-12 11:22] LABS: HCT 45.7 % (40.0-50.0); HGB 15.5 g/dL (13.5-17.5); MCH 30.5 pg (27.0-33.0); MCHC 33.9 % (32.0-36.0); MCV 89.8 fL (80-95); MPV 9.7 fL (8.0-11.0); Platelet Count 246 10^3/uL (130-400); RBC 5.09 10^6/uL (4.36-5.78); RDW 12.7 % (11.8-14.1); RDW-SD 41.3 fL; Reticulocyte 1.9 % (0.5-2.4); WBC 7.94 10^3/uL (4.4-10.8)
[2020-09-12 11:42] LABS: Bilirubin Negative (Negative); Blood Negative (Negative); Clarity Clear (Clear); Glucose Negative (Negative); Ketones Negative (Negative); Leukocyte Esterase Negative (Negative); Nitrite Negative (Negative); Specific Gravity >= 1.030 (1.005-1.025); Urobilinogen 0.2 EU/dL (Up TO 0.2)
[2020-09-12 11:57] LABS: Bacteria Rare HPF (Negative); Crystals Negative HPF (Negative); Epithelial Cells Negative HPF (Negative); Mucus Trace (Negative); Other Cells Rare Renal (Negative); WBC 0-2 HPF (0-5)
[2020-09-12 11:58] LABS: C & S Indicated? No; Casts 0-2 Coarse Granular LPF (Negative)
[2020-09-12 12:33] LABS: PROTEIN 176.6 mg/dL
[2020-09-12 12:34] LABS: ALT 30 U/L (16-63); AST 17 U/L (15-37); Albumin 3.3 g/dL (3.4-5.0); Alkaline Phosphatase 82 U/L (46-116); Anion Gap 7.8 mmol/L (3-11); BUN 18 mg/dL (7-18); Bilirubin, Total 2.8 mg/dL (0.2-1.0); CO2 31.2 mmol/L (21.0-32.0); CREATININE 1.3 mg/dL (0.70-1.30); Calcium 9.2 mg/dL (8.5-10.1); Calculated LDL 18 mg/dL (<100); Chloride 102 mmol/L (98-107); Cholesterol 85 mg/dL (<200); Estimated GFR 54.26 (mL/min/1.73m2); Glucose 246 mg/dL (74-106); HDL Cholesterol 41 mg/dL (40-60); Magnesium 1.5 mg/dL (1.8-2.4); Potassium 3.8 mmol/L (3.5-5.1); Sodium 141 mmol/L (136-145); Total Protein 6.8 g/dL (6.4-8.2); Triglyceride 133 mg/dL (<150)
[2020-09-12 12:36] LABS: COMMENT (LAB VIEW ONLY) 110.53 mg/dL; Prot/Crea Ur Ratio 1.59
[2020-09-12 12:47] LABS: PHOSPHORUS 2.9 mg/dL (2.6-4.7); Uric Acid 5.6 mg/dL (3.5-7.2)
[2020-09-13 04:57] LABS: Vitamin D 25 Total 8.6 ng/ml (30-100)
[2020-09-13 10:26] LABS: Parathyroid Hormone,Intact 71 pg/mL (19-88)
[2020-09-13 10:42] LABS: Calcium (Random Urine) 14.6 mg/dL (See Note); Phosphorus Urine 45.4 mg/dL (See Note)
[2020-09-13 10:46] LABS: Magnesium Random Urine 3.6 mg/dL (See Note)
[2020-09-13 14:09] LABS: Tacrolimus 15.2 ng/mL (See Note)
[2020-09-13 18:57] LABS: BK Virus PCR, Quant, P None Detected
[2020-09-18 10:34] LABS: 25-Hydroxy D Total 9.7 ng/mL; 25-Hydroxy D2 <4.0 ng/mL; 25-Hydroxy D3 9.7 ng/mL
== END 2020-09-12 04:03 | disposition home or self-care (01) ==
LOC: LBO 04:03
PROVIDERS: PCP Emergency Medicine; Visit Provider Internal Medicine Nephrology
DX: E55.9 Vitamin D deficiency, unspecified (principal); Z94.0 Kidney transplant status; Z79.899 Other long term (current) drug therapy
CPT/HCPCS: 36415; 80053; 80061; 82306; 83735; 85027; 80197; 81003; 81015; 82340; 82565; 83036; 83970; 84100; 84105; 84156; 84550; 85045; 87799

== ENCOUNTER 2020-12-21 20:01 | Outpatient (REF) | payer MEDICARE, SELFPAY ==
[2020-12-21 14:31] LABS: Calculated LDL 29 mg/dL (<100); Cholesterol 84 mg/dL (<200); HDL Cholesterol 38 mg/dL (40-60); TSH 3.38 uIU/mL (0.36-3.74); Triglyceride 88 mg/dL (<150)
[2020-12-21 14:53] LABS: Hemoglobin A1C 6.6 % (<5.7)
== END 2020-12-21 20:02 | disposition home or self-care (01) ==
LOC: LBN 20:01
PROVIDERS: PCP Emergency Medicine; Visit Provider Emergency Medicine
DX: E11.9 Type 2 diabetes mellitus without complications (principal); E03.9 Hypothyroidism, unspecified; I10 Essential (primary) hypertension; N18.30 Chronic kidney disease, stage 3 unspecified
CPT/HCPCS: 80061; 83036; 84443

== ENCOUNTER 2021-02-22 14:03 | Outpatient (CLI) | payer MEDICARE, SELFPAY ==
[2021-02-22 13:52] LABS: Abs Immature Grans 0.03 10^3/uL (0.0-0.06); Absolute Basophil Count 0.06 10^3/uL (0.0-0.2); Absolute Eosinophil Count 0.31 10^3/uL (0.0-0.7); Absolute Lymphocyte Count 1.53 10^3/uL (1.2-3.4); Absolute Monocyte Count 0.69 10^3/uL (0.1-0.8); Absolute Neutrophil Count 6.53 10^3/uL (1.2-6.7); Basophils % 0.7; Eosinophils % 3.4; HCT 45.3 % (40.0-50.0); HGB 15.4 g/dL (13.5-17.5); Immature Grans % 0.3; Lymphocytes % 16.7; MCH 30.1 pg (27.0-33.0); MCV 88.6 fL (80-95); MPV 9.8 fL (8.0-11.0); Monocytes % 7.5; Neutrophils % 71.4; Nucleated RBC 0 %; Platelet Count 266 10^3/uL (130-400); RBC 5.11 10^6/uL (4.36-5.78); RDW 12.7 % (11.8-14.1); RDW-SD 41.5 fL; WBC 9.15 10^3/uL (4.4-10.8)
[2021-02-22 14:32] LABS: ALT 27 U/L (16-63); AST 18 U/L (15-37); Albumin 3.4 g/dL (3.4-5.0); Alkaline Phosphatase 72 U/L (46-116); Anion Gap 6.4 mmol/L (3-11); BUN 21 mg/dL (7-18); CO2 32.6 mmol/L (21.0-32.0); CREATININE 1.5 mg/dL (0.70-1.30); Calcium 9.7 mg/dL (8.5-10.1); Chloride 104 mmol/L (98-107); Glucose 131 mg/dL (74-106); Potassium 3.8 mmol/L (3.5-5.1); Sodium 143 mmol/L (136-145); Total Protein 6.9 g/dL (6.4-8.2)
[2021-02-24 12:50] LABS: COVID-19 RT-PCR UVMMC Result Negative (Negative)
== END 2021-02-22 14:04 | disposition home or self-care (01) ==
LOC: LBO 14:17
PROVIDERS: PCP Emergency Medicine; Visit Provider Nurse Practitioner Family
DX: R53.83 Other fatigue (principal); J02.9 Acute pharyngitis, unspecified; Z20.822 Contact with and (suspected) exposure to COVID-19
CPT/HCPCS: 36415; 80053; U0003; 85025

== ENCOUNTER 2021-02-25 18:07 | Outpatient (CLI) | payer MEDICARE, SELFPAY ==
--- NOTE | 2021-02-25 18:00 | RT.EKG_ITS ---
APPROVED REPORT Exam: Resting ECG Reason for Exam: bradycardia Patient Location: O HR:51 bpm ECG Measurements Heart Rate 51 AXIS SC [id number] P [id number] QRSd 115 QRS -57 QT 454 T 98 QTc 420 Conclusion Atrial fibrillation...? atrial activity Left anterior fascicular block...axis(240,-40), init forces inf
== END 2021-02-25 18:08 | disposition home or self-care (01) ==
LOC: DI.CM 18:09
PROVIDERS: PCP Emergency Medicine; Visit Provider Nurse Practitioner Family
DX: R00.1 Bradycardia, unspecified (principal)
CPT/HCPCS: 93010

== ENCOUNTER 2021-02-25 18:48 | Inpatient (IN) | payer MEDICARE, SELFPAY ==
[2021-02-25] VITALS (34 sets, daily range): BP systolic 127–228; BP diastolic 56–191; PULSE 43–84; RESP 13–35; TEMP 36.6; O2SAT 90–100
--- NOTE | 2021-02-25 19:00 | RT.EKG_ITS ---
APPROVED REPORT Exam: Resting ECG Reason for Exam: altered mental status Patient Location: E HR:48 bpm ECG Measurements Heart Rate 48 AXIS OR 241 P 4 QRSd 121 QRS -57 QT 471 T -5 QTc 421 Conclusion Sinus bradycardia...rate< 60 Prolonged OR interval...OR >230, V-rate 30- 49 Left ventricular hypertrophy...multiple LVH criteria No STEMI. I have reviewed and interpreted ECG and agree with software generated interpretation.
--- NOTE | 2021-02-25 19:07 | ED.GENADUL_ITS ---
Discharge Plan Disposition Patient Disposition: [facility] INPATIENT Condition: Serious Discharge Details Clinical Impression: Basal ganglia hemorrhage, Altered mental status Primary Care Provider: Urbano Denis ED Provider: Aminah Walsh Home Meds and New Rx's Prescriptions: No Action apixaban 5 mg tablet 5 mg PO BID RF: 0 atorvastatin 40 mg tablet 40 mg PO QHS RF: 0 metoprolol succinate 25 mg capsule,sprinkle,ER 24hr 25 mg PO DAILY RF: 0 nitroglycerin 0.4 mg tablet, sublingual 0.4 mg SL Q5M PRNRF: 0 (DME) blood sugar diagnostic Strip 1 ea Miscellaneous BID Qty: 180 RF: 3 omeprazole 20 mg capsule,delayed release(DR/EC) 20 mg PO DAILY PRN (Reason: GERD) Qty: 90 RF: 3 sildenafil [Viagra] 100 mg tablet 100 mg PO as directed MDD 100 mg Qty: 10 RF: 6 aspirin 81 mg tablet,delayed release (DR/EC) 81 mg PO DAILY RF: 0 diclofenac sodium 1 % gel 4 gm TP QID PRN (Reason: low back pain) 6 Days Qty: 100 RF: 11 glipizide 10 mg tablet extended release 24hr 10 mg PO BID Qty: 180 RF: 3 (DME) OneTouch Ultra Blue Test Strip Strip See Rx Instructions .ROUTE .MEDSUPPLY Qty: 180 RF: 4 (DME) blood-glucose meter 1 EACH misc 1 ea Miscellaneous DAILY Qty: 1 RF: 1 (DME) lancets 1 EACH misc 1 ea Miscellaneous DAILY Qty: 100 RF: 4 calcitriol 0.25 MCG capsule 0.25 mcg PO DAILY Qty: 90 RF: 3 mycophenolate mofetil [CellCept] 250 MG capsule 250 mg PO BID RF: 0 tacrolimus [Prograf] 1 MG capsule 3 mg PO BID RF: 0 ascorbic acid (vitamin C) [Vitamin C] 500 MG capsule, extended release 500 mg PO TID RF: 0 Centrum Silver 0.4-300-250 mg-mcg-mcg tablet 2 tab PO DAILY RF: 0 amlodipine 2.5 mg tablet 2.5 mg PO DAILY Qty: 90 RF: 3 levothyroxine 137 mcg tablet 137 mcg PO DAILY Qty: 90 RF: 3 tamsulosin 0.4 mg capsule 0.4 mg PO DAILY Qty: 90 RF: 3 magnesium gluconate 500 mg tablet See Rx Instructions PO .COMPLEX RF: 0 Medical Decision Making 1899 -- 70-year-old male with a history of diabetes, CVA, hypertension, hyperlipidemia, CHF, atrial fibrillation, NSTEMI, hepatitis C, chronic renal insufficiency with history of renal transplant 5 years ago presents for hiccups for 2 weeks and increasing confusion and fatigue for the past 10 days. EKG on arrival notes a rate of 48, sinus, no STEMI, nondiagnostic. Patient's responses are generally slowed but he is mostly able to answer questions appropriately. He knows the place and his name but states his 2016, and when corrected understood that it was 2020. Has no focal deficits on exam. He does need continuous prompting when testing cranial nerves but there is no obvious deficit. Differential diagnosis includes dehydration, UTI, pneumonia, mass, CVA, electrolyte abnormality, arrhythmia. We will place an IV, bolus IV fluids, screening labs, urinalysis, Covid swab, CT head, CT chest abdomen pelvis. We will hold on IV contrast due to his history of renal transplant. 1999 -- CT head reviewed. [facility] called to state that they noted a 3.4 cm hyperdense mass in the left nasal cannula concerning for a hypertensive hemorrhage. Blood pressure just prior to transfer to radiology reported as 228/191, but thought this was inaccurate due to blood pressure cuff. Blood pressure after return from radiology 173/60. and patient informed of results. [facility] neurosurgery paged. Labs reviewed. Creatinine 1.6. Troponin negative. BNP 907. Urinalysis negative. 2139 --continual calls placed to [facility] to speak with neurosurgery. [facility] transfer center were waiting on images. [facility] state that neurosurgery defersl to neurology as they do not manage basal ganglia hemorrhage. [facility] neurosurgery reviewed the images and no indication for surgical intervention based on area of hemorrhage and patient's clinical presentation. [facility] neurology recommends holding aspirin and eliquis, reversing Eliquis with Andexxa or KCentra, BP control with maintaining SBP <140 and DBP <90, neuro checks q 2 hours. If any change in mental status, can obtain stat CT head. No beds available at [facility] for transfer. Discussed with hospitalist and no ICU beds available here. Discussed with [facility] transfer center and no beds available for transfer. 2300 --multiple phone calls placed for transfer --no ICU beds available at [facility], [facility], [facility], [facility], [facility], [facility], [facility] and [facility], [facility]. As patient symptoms have been present for 10 days, and giving reversal agent, can consider admission here to [facility]. Discussed again with hospitalist Dr. Lopes and he accepts patient for admission to [facility]. Discussed with nursing operations and maintenance supervisor and an additional nurse will be available on the floor after 3 AM to provide q 2 hours neurochecks as indicated. We will hold patient in the ED until after 3 AM. Case endorsed to Dr. San to continue to monitor until transfer to the floor. Patient has been bradycardic at times but otherwise has remained hemodynamically stable with no acute change in mental status or focal deficits. notified of plan. Medical Records Medical records reviewed: Yes I reviewed the patient's medical records. Imaging Data Radiologic Study: Radiologist's impression: CT Head Without Contrast Exam date and time: 02/25/2021 7:33 PM Age: 70 years old Clinical indication: Alteration of consciousness; Confusion, R/O acute disease/cva TECHNIQUE: Imaging protocol: Computed tomography of the head without contrast. Radiation optimization: All CT scans at this facility use at least one of these dose optimization techniques: automated exposure control; mA and/or kV adjustment per patient size (includes targeted exams where dose is matched to clinical indication); or iterative reconstruction. Other technique: STROKE PROTOCOL was implemented. COMPARISON: MRI - BRAIN WO CONTRAST 05/02/2014 3:58 PM FINDINGS: Brain: There is a 3.4 x 2.0 x 1.8 cm hyperdense oval-shaped mass in the left basal ganglia, concerning for acute hematoma. There is mild surrounding vasogenic edema creating mass effect on the left lateral ventricle and adjacent parenchyma. No midline shift. Cerebral ventricles: No ventriculomegaly. Paranasal sinuses: Visualized sinuses are unremarkable. No fluid levels. Mastoid air cells: Visualized mastoid air cells are well aerated. Bones/joints: Unremarkable. No acute fracture. Soft tissues: Unremarkable. IMPRESSION: 3.4 cm hyperdense mass in the left basal ganglia, concerning for acute hematoma. There is mild mass effect on the adjacent structures without midline shift. This lesion demonstrates characteristics of a hypertensive hemorrhage. Correlate with clinical findings. CT Chest Without Contrast; Diagnostic Exam date and time: 02/25/2021 7:50 PM Age: 70 years old Clinical indication: Other: Hicups; Other: Hiccups, fatigue, confusion; Prior surgery; Surgery date: 6+ months; Surgery type: Kidney transplant 2016, bladder repair TECHNIQUE: Imaging protocol: Diagnostic computed tomography of the chest without contrast. Radiation optimization: All CT scans at this facility use at least one of these dose optimization techniques: automated exposure control; mA and/or kV adjustment per patient size (includes targeted exams where dose is matched to clinical indication); or iterative reconstruction. COMPARISON: CR CHEST 2 VIEWS PA,LAT 08/17/2017 3:13 PM FINDINGS: Lungs: Subpleural 1.1 cm nodule along within the left lower lobe along the left greater fissure. Pleural spaces: Bilateral very small pleural effusions. Heart: Mild to moderate cardiomegaly. Aorta: Unremarkable. No aortic aneurysm. Lymph nodes: Unremarkable. No enlarged lymph nodes. Bones/joints: Unremarkable. No acute fracture. Soft tissues: Unremarkable. IMPRESSION: 1. No evidence of acute cardiopulmonary process. 2. Bilateral very small pleural effusions. 3. Afau-fu-clkefjox cardiomegaly. CT Abdomen And Pelvis Without Contrast Exam date and time: 02/25/2021 7:50 PM Age: 70 years old Clinical indication: Other: Hicups; Other: Hiccups, fatigue, confusion; Prior surgery; Surgery date: 6+ months; Surgery type: Kidney transplant 2016, bladder repair TECHNIQUE: Imaging protocol: Computed tomography of the abdomen and pelvis without contrast. Radiation optimization: All CT scans at this facility use at least one of these dose optimization techniques: automated exposure control; mA and/or kV adjustment per patient size (includes targeted exams where dose is matched to clinical indication); or iterative reconstruction. COMPARISON: CR CHEST 2 VIEWS PA,LAT 08/17/2017 3:13 PM FINDINGS: Liver: Normal. No mass. Gallbladder and bile ducts: Faintly hyperdense rounded structure within the dependent gallbladder most likely compatible with a gallstone or sludge ball measuring 9 mm. Pancreas: Normal. No ductal dilation. Spleen: Normal. No splenomegaly. Adrenal glands: Normal. No mass. Kidneys and ureters: Bilateral renal atrophy. Transplant kidney within the left iliac fossa. No evidence of hydronephrosis or obstructing renal stone. Stomach and bowel: Mild diverticulosis is present in the distal colon. Appendix: No evidence of appendicitis. Intraperitoneal space: Unremarkable. No free air. No significant fluid collection. Vasculature: Unremarkable. No abdominal aortic aneurysm. Lymph nodes: Unremarkable. No enlarged lymph nodes. Urinary bladder: Unremarkable as visualized. Reproductive: Unremarkable as visualized. Bones/joints: Unremarkable. No acute fracture. Soft tissues: Unremarkable. Other findings: The study is limited by motion artifact. IMPRESSION: 1. No evidence of acute abdominal or pelvic process. 2. Faintly hyperdense rounded structure within the dependent gallbladder most likely compatible with a gallstone or sludge ball measuring 9 mm. 3. Mild sigmoid diverticulosis. Lab Data Lab results reviewed: Yes I reviewed the patient's lab results. Labs: Laboratory Tests Range/Units 02/25/21 02/25/21 02/25/21 19:05 19:05 19:05 WBC (4.4-10.8) 10^3/uL RBC (4.36-5.78) 10^6/uL Hgb (13.5-17.5) g/dL Hct (40.0-50.0) % MCV (80-95) fL MCH (27.0-33.0) pg MCHC (32.0-36.0) % RDW (11.8-14.1) % Plt Count (130-400) 10^3/uL MPV (8.0-11.0) fL Immature Gran % Neutrophils % Lymphocytes % Monocytes % Eosinophils % Basophils % Nucleated RBC % % Absolute Neutrophils (1.2-6.7) 10^3/uL Absolute Lymphocytes (1.2-3.4) 10^3/uL Absolute Monocytes (0.1-0.8) 10^3/uL Absolute Eosinophils (0.0-0.7) 10^3/uL Absolute Basophils (0.0-0.2) 10^3/uL PT (9.3-11.0) sec INR (0.9-1.1) APTT (21.0-27.5) sec Sodium (136-145) mmol/L 142 Potassium (3.5-5.1) mmol/L 3.6 Chloride (98-107) mmol/L 104 Carbon Dioxide (21.0-32.0) mmol/L 32.8 H Anion Gap (3-11) mmol/L 5.2 BUN (7-18) mg/dL 22 H Creatinine (0.70-1.30) mg/dL 1.6 H Estimated GFR/1.73 m2 (mL/min/1.73m2) 42.70 Glucose (74-106) mg/dL 116 H Calcium (8.5-10.1) mg/dL 9.9 Magnesium (1.8-2.4) mg/dL 1.7 L Total Bilirubin (0.2-1.0) mg/dL 2.8 H AST (15-37) U/L 14 L ALT (16-63) U/L 25 Alkaline Phosphatase (46-116) U/L 77 Ammonia (11-32) umol/L 14 Troponin I (<0.06) ng/mL < 0.05 NT-Pro-B Natriuret Pep (<300) pg/mL Total Protein (6.4-8.2) g/dL 7.5 Albumin (3.4-5.0) g/dL 3.4 Urine Color (Yellow) Urine Clarity (Clear) Urine pH (5-8) Ur Specific [place] (1.005-1.025) Urine Protein (Negative) mg/dL Urine Ketones (Negative) mg/dL Urine Blood (Negative) Urine Nitrite (Negative) Urine Bilirubin (Negative) Urine Urobilinogen (Up TO 0.2) EU/dL Ur Leukocyte Esterase (Negative) Urine RBC (0-2) HPF Urine WBC (0-5) HPF Ur Epithelial Cells (Negative) HPF Urine Crystals (Negative) HPF Urine Bacteria (Negative) HPF Urine Casts (Negative) LPF Urine Mucus (Negative) Ur Culture Indicated? Urine Glucose (Negative) mg/dL COVID-19 Source SARS-CoV-2 (PCR) (Negative) Range/Units 02/25/21 02/25/21 02/25/21 19:05 19:05 19:05 WBC (4.4-10.8) 10^3/uL 10.14 RBC (4.36-5.78) 10^6/uL 5.28 Hgb (13.5-17.5) g/dL 15.8 Hct (40.0-50.0) % 47.3 MCV (80-95) fL 89.6 MCH (27.0-33.0) pg 29.9 MCHC (32.0-36.0) % 33.4 RDW (11.8-14.1) % 12.6 Plt Count (130-400) 10^3/uL 282 MPV (8.0-11.0) fL 9.5 Immature Gran % 0.3 Neutrophils % 68.6 Lymphocytes % 18.8 Monocytes % 8.0 Eosinophils % 3.6 Basophils % 0.7 Nucleated RBC % % 0 Absolute Neutrophils (1.2-6.7) 10^3/uL 6.95 H Absolute Lymphocytes (1.2-3.4) 10^3/uL 1.91 Absolute Monocytes (0.1-0.8) 10^3/uL 0.81 H Absolute Eosinophils (0.0-0.7) 10^3/uL 0.37 Absolute Basophils (0.0-0.2) 10^3/uL 0.07 PT (9.3-11.0) sec 11.0 INR (0.9-1.1) 1.1 APTT (21.0-27.5) sec 23.1 Sodium (136-145) mmol/L Potassium (3.5-5.1) mmol/L Chloride (98-107) mmol/L Carbon Dioxide (21.0-32.0) mmol/L Anion Gap (3-11) mmol/L BUN (7-18) mg/dL Creatinine (0.70-1.30) mg/dL Estimated GFR/1.73 m2 (mL/min/1.73m2) Glucose (74-106) mg/dL Calcium (8.5-10.1) mg/dL Magnesium (1.8-2.4) mg/dL Total Bilirubin (0.2-1.0) mg/dL AST (15-37) U/L ALT (16-63) U/L Alkaline Phosphatase (46-116) U/L Ammonia (11-32) umol/L Troponin I (<0.06) ng/mL NT-Pro-B Natriuret Pep (<300) pg/mL 907 H Total Protein (6.4-8.2) g/dL Albumin (3.4-5.0) g/dL Urine Color (Yellow) Urine Clarity (Clear) Urine pH (5-8) Ur Specific [place] (1.005-1.025) Urine Protein (Negative) mg/dL Urine Ketones (Negative) mg/dL Urine Blood (Negative) Urine Nitrite (Negative) Urine Bilirubin (Negative) Urine Urobilinogen (Up TO 0.2) EU/dL Ur Leukocyte Esterase (Negative) Urine RBC (0-2) HPF Urine WBC (0-5) HPF Ur Epithelial Cells (Negative) HPF Urine Crystals (Negative) HPF Urine Bacteria (Negative) HPF Urine Casts (Negative) LPF Urine Mucus (Negative) Ur Culture Indicated? Urine Glucose (Negative) mg/dL COVID-19 Source SARS-CoV-2 (PCR) (Negative) Range/Units 02/25/21 02/25/21 19:35 20:20 WBC (4.4-10.8) 10^3/uL RBC (4.36-5.78) 10^6/uL Hgb (13.5-17.5) g/dL Hct (40.0-50.0) % MCV (80-95) fL MCH (27.0-33.0) pg MCHC (32.0-36.0) % RDW (11.8-14.1) % Plt Count (130-400) 10^3/uL MPV (8.0-11.0) fL Immature Gran % Neutrophils % Lymphocytes % Monocytes % Eosinophils % Basophils % Nucleated RBC % % Absolute Neutrophils (1.2-6.7) 10^3/uL Absolute Lymphocytes (1.2-3.4) 10^3/uL Absolute Monocytes (0.1-0.8) 10^3/uL Absolute Eosinophils (0.0-0.7) 10^3/uL Absolute Basophils (0.0-0.2) 10^3/uL PT (9.3-11.0) sec INR (0.9-1.1) APTT (21.0-27.5) sec Sodium (136-145) mmol/L Potassium (3.5-5.1) mmol/L Chloride (98-107) mmol/L Carbon Dioxide (21.0-32.0) mmol/L Anion Gap (3-11) mmol/L BUN (7-18) mg/dL Creatinine (0.70-1.30) mg/dL Estimated GFR/1.73 m2 (mL/min/1.73m2) Glucose (74-106) mg/dL Calcium (8.5-10.1) mg/dL Magnesium (1.8-2.4) mg/dL Total Bilirubin (0.2-1.0) mg/dL AST (15-37) U/L ALT (16-63) U/L Alkaline Phosphatase (46-116) U/L Ammonia (11-32) umol/L Troponin I (<0.06) ng/mL NT-Pro-B Natriuret Pep (<300) pg/mL Total Protein (6.4-8.2) g/dL Albumin (3.4-5.0) g/dL Urine Color (Yellow) Yellow Urine Clarity (Clear) Clear Urine pH (5-8) 6.5 Ur Specific [place] (1.005-1.025) 1.025 Urine Protein (Negative) mg/dL >=300 H Urine Ketones (Negative) mg/dL Negative Urine Blood (Negative) Negative Urine Nitrite (Negative) Negative Urine Bilirubin (Negative) Negative Urine Urobilinogen (Up TO 0.2) EU/dL 0.2 Ur Leukocyte Esterase (Negative) Negative Urine RBC (0-2) HPF 0-2 Urine WBC (0-5) HPF 0-2 Ur Epithelial Cells (Negative) HPF Rare Urine Crystals (Negative) HPF Negative Urine Bacteria (Negative) HPF Negative Urine Casts (Negative) LPF Negative Urine Mucus (Negative) Moderate Ur Culture Indicated? No Urine Glucose (Negative) mg/dL Negative COVID-19 Source Nasal/Nares SARS-CoV-2 (PCR) (Negative) Negative HPI General Mode of arrival: EMS . Date/Time Provider Initiated Documentation: 02/25/21 18:55 . Limitations to Documentation: altered mental status . Information obtained by: patient and family . HPI Narrative: Patient is a 70-year-old male with a history of hypertension, hyperlipidemia, MD, CHF, atrial fibrillation, CVA, hepatitis C, renal failure with history of renal transplant 2016 presents for hiccups for the past 2 weeks and confusion and fatigue for the past 10 days. states that he has hiccups throughout the day and even while he is sleeping at night. She states she has been sleeping several times throughout the day. She states she has been eating normally but does not drink much water. Patient was seen at urgent care this week for similar complaints and had outpatient work-up including lab and urinalysis which were negative for UTI but noted slight increase in his BUN and creatinine. noted that his symptoms were worsening and he was advised to come here for further evaluation. Patient does admit to fatigue but denies any other acute complaints. He is slowed in his responses and somewhat of a poor historian. His normal baseline is orientation x3 and ambulatory without assistance. states that patient had a negative Covid swab on Thursday. Related Data Home Medications Medication Instructions Recorded Confirmed blood-glucose meter #1 ea 09/27/14 02/25/21 calcitriol 0.25 mcg PO DAILY #90 tab 09/27/14 02/25/21 lancets #100 ea 09/27/14 02/25/21 mycophenolate mofetil [Cellcept] 250 mg PO BID 04/15/16 02/25/21 tacrolimus [Prograf] 3 mg PO BID 04/15/16 02/25/21 ascorbic acid (vitamin C) [Vitamin 500 mg PO TID 09/05/16 02/25/21 C] apixaban 5 mg tablet 5 mg PO BID 03/04/19 02/25/21 atorvastatin 40 mg tablet 40 mg PO QHS 03/04/19 02/25/21 blood sugar diagnostic #180 strip 03/04/19 02/25/21 metoprolol succinate 25 mg capsule 25 mg PO DAILY 03/04/19 02/25/21 sprinkle, ext. release 24 hr nitroglycerin 0.4 mg sublingual 0.4 mg SL Q5M PRN 03/04/19 02/25/21 tablet omeprazole 20 mg capsule,delayed 20 mg PO DAILY PRN #90 cap 06/17/19 02/25/21 release sildenafil 100 mg tablet 100 mg PO as directed #10 tab-cap 06/17/19 02/25/21 MDD 100 mg diclofenac sodium 1 % topical gel 4 gm TP QID PRN 6 Days #100 gm 09/13/19 02/25/21 aspirin 81 mg tablet,delayed 81 mg PO DAILY 04/17/20 02/25/21 release blood sugar diagnostic #180 each 10/17/20 02/25/21 glipizide 10 mg tablet, extended 10 mg PO BID #180 tab 10/17/20 02/25/21 release 24 hr sjsbtxsm-ihj-gycwh acid 0.4 2 tab PO DAILY tab 07/14/21 08/23/21 mg-lycopene 300 mcg-lutein 250 mcg tablet amlodipine 2.5 mg tablet 2.5 mg PO DAILY #90 tab 01/17/21 02/25/21 levothyroxine 137 mcg tablet 137 mcg PO DAILY #90 tab-cap 01/17/21 02/25/21 tamsulosin 0.4 mg capsule 0.4 mg PO DAILY #90 tab-cap 01/29/21 02/25/21 magnesium gluconate 500 mg tablet See Rx Instructions PO .COMPLEX 02/25/21 02/25/21 tab Previous Rx's Medication Instructions Recorded blood sugar diagnostic #180 strip 03/04/19 omeprazole 20 mg capsule,delayed 20 mg PO DAILY PRN #90 cap 06/17/19 release sildenafil 100 mg tablet 100 mg PO as directed #10 tab-cap 06/17/19 MDD 100 mg diclofenac sodium 1 % topical gel 4 gm TP QID PRN 6 Days #100 gm 09/13/19 blood sugar diagnostic #180 each 10/17/20 glipizide 10 mg tablet, extended 10 mg PO BID #180 tab 10/17/20 release 24 hr amlodipine 2.5 mg tablet 2.5 mg PO DAILY #90 tab 01/17/21 levothyroxine 137 mcg tablet 137 mcg PO DAILY #90 tab-cap 01/17/21 tamsulosin 0.4 mg capsule 0.4 mg PO DAILY #90 tab-cap 01/29/21 Allergies Allergy/AdvReac Type Severity Reaction Status Date / Time No Known Allergies Allergy Verified 02/22/21 12:43 General Stated Complaint: AMS/LOC ALICIA: 2 Review of Systems All systems reviewed & are unremarkable except as noted in HPI and below Constitutional Constitutional: Reports as per HPI, Denies chills and Denies fever(s) Eyes Eyes: Denies blurry vision ENT Ears, Nose, Mouth, and Throat: Denies dizziness, Denies sore throat and Denies throat swelling Cardiovascular Cardiovascular: Denies chest pain and Denies dyspnea Respiratory Respiratory: Denies cough and Denies dyspnea Gastrointestinal Gastrointestinal: Denies abdominal pain, Denies diarrhea and Denies vomiting Genitourinary Genitourinary: Denies hematuria and Denies dysuria Musculoskeletal Musculoskeletal: Denies back pain and Denies numbness Integumentary/Breasts Skin/Breast: Denies lesions and Denies rash Neurologic Neurologic: Denies dizziness, Denies localized weakness and Denies numbness Allergic/Immunologic Allergic/Immunologic: Denies throat swelling [facility] Medical History (Updated 02/25/21 @ 20:39 by Aminah Walsh DO) Atrial fibrillation BPH (benign prostatic hyperplasia) CHF (congestive heart failure) Chronic kidney disease CVA (cerebral vascular accident) Diabetes Fistula GERD (gastroesophageal reflux disease) Hepatitis C HTN (hypertension) Hyperlipemia Hypothyroidism Myocardial infarction Obstructive sleep apnea Subsequent non-ST elevation (NSTEMI) myocardial infarction within 4 weeks of initial infarction stents Surgical History Arthroplasty of knee 2005-right BIOPSY, KIDNEY (10/16/14) [facility]-RIGHT Colonoscopy - MAC 2008 H/O bladder repair surgery H/O vasectomy History of hernia repair KIDNEY TRANSPLANT (09/16/15) [facility]-09/16/15 Rotator Cuff Repair left Family History Mother Essential hypertension Father Myocardial infarction Stroke Brother Essential hypertension Neoplasm Social History Smoking/Tobacco Use Status: Former Tobacco Use Smoking risk assessment performed?: Yes Alcohol Intake: current Alcohol Intake frequency: holidays/special occasions only Drug use: Occasionally Substance use type: marijuana Household members: spouse Housing: house Number of Children: 1 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 Do you feel safe at home: Yes Do you feel safe in your relationship?: Yes Exam Const General: cooperative and no acute distress HENMT Head: normal to inspection Face and sinus: normal facial exam Eyes General: appearance normal, both eyes and all related structures Pupils: PERRL EOM: EOM intact bilaterally Neck Neck: normal visual inspection and No submandibular swelling Lymphatic: no lymphadenopathy noted Chest Chest: normal inspection of the chest and no tenderness Resp Effort & Inspection: normal respiratory effort and able to speak in complete sentences Auscultation: clear to auscultation bilaterally Cardio Rate: regular rate Rhythm: regular rhythm GI Inspection: normal to inspection Palpation: soft, not firm, not rigid and nontender Auscultation: normal bowel sounds Back/Spine/Pelvis Thoracic/Lumbar Spine: thoracic and lumbar spine normal to inspection Skin General skin exam: no rashes or lesions noted Neuro General: patient alert, patient awake, patient oriented x3, moves all extremities, no meningeal signs and no focal motor deficits Cranial Nerves: CN's II-XI intact bilaterally and other (Difficulty assessing cranial nerves, needs continuous prompting) Cognition: normal cognition Speech: speech normal Motor: muscle tone normal throughout and strength 5/5 throughout Sensory Exam: no sensory deficits noted Extrem General: normal to inspection, full ROM, capillary refill normal, no calf tenderness bilaterally and no edema Psych Appearance: grossly normal Mental Status: mental status grossly normal Speech and Movement: speech and movement normal Affect: normal affect Course Vital Signs Vital signs: Vital Signs Temperature 97.9 F 02/25/21 18:55 Pulse 50 L 02/25/21 18:55 Respiratory Rate 18 02/25/21 18:55 Blood Pressure 183/65 H 02/25/21 18:55 Pulse Oximetry 99 02/25/21 18:55 Temperature 97.9 F 02/25/21 18:55 Temperature Source Skin 02/25/21 18:55 Pulse 50 L 02/25/21 18:55 Respiratory Rate 18 02/25/21 18:55 Blood Pressure 183/65 H 02/25/21 18:55 Pulse Oximetry 99 02/25/21 18:55 Pain Level 0 02/25/21 18:55 Critical Care Time Critical Care Time Critical Care Time: Yes Total Critical Care Time: 60 Attestation: I spent 60 minutes of critical care time with this patient. This does not include time spent on separately reported billable procedures. Sign Out Sign Out Data: Sign Out Comment: Patient admitted to [facility]. Continue to monitor in the ED until nurse available on the floor after 3 AM. Last updated by Aminah Walsh DO at 02/25/21 23:17
[2021-02-25 19:16] LABS: Abs Immature Grans 0.03 10^3/uL (0.0-0.06); Absolute Basophil Count 0.07 10^3/uL (0.0-0.2); Absolute Eosinophil Count 0.37 10^3/uL (0.0-0.7); Absolute Lymphocyte Count 1.91 10^3/uL (1.2-3.4); Absolute Monocyte Count 0.81 10^3/uL (0.1-0.8); Absolute Neutrophil Count 6.95 10^3/uL (1.2-6.7); Basophils % 0.7; Eosinophils % 3.6; HCT 47.3 % (40.0-50.0); HGB 15.8 g/dL (13.5-17.5); Immature Grans % 0.3; Lymphocytes % 18.8; MCH 29.9 pg (27.0-33.0); MCHC 33.4 % (32.0-36.0); MCV 89.6 fL (80-95); MPV 9.5 fL (8.0-11.0); Neutrophils % 68.6; Nucleated RBC 0 %; Platelet Count 282 10^3/uL (130-400); RBC 5.28 10^6/uL (4.36-5.78); RDW 12.6 % (11.8-14.1); RDW-SD 41.1 fL; WBC 10.14 10^3/uL (4.4-10.8)
[2021-02-25 19:24] LABS: Ammonia 14 umol/L (11-32)
--- NOTE | 2021-02-25 19:30 | DI.CT_ITS ---
Exam(s) CT HEAD WO EXAM: CT HEAD WO CLINICAL HISTORY: confusion, r/o acute disease/cva. TECHNIQUE: Imaging Protocol: Axial computed tomography images with coronal and sagittal reformatted images were created and reviewed COMPARISON: CT HEAD WITH/WITHOUT CONTRAST from 04/26/2014 CT HEAD WITH/WITHOUT CONTRAST from 04/26/2014 FINDINGS: Exam is somewhat limited by patient motion particularly inferiorly. There is a ovoid area of increas ed attenuation in the left basal ganglia consistent with acute hemorrhage. There is some mass effect on the left lateral ventricle but no significant midline shift. No additional areas of hemorrhage a re seen. There are bilateral areas of patchy decreased attenuation in the white matter consistent wi th small vessel disease and prior infarcts which were present on the 2013 exam. No skull fracture or sinus opacification. Mastoid air cells are clear. IMPRESSION: Acute left basal gangliar hemorrhage measuring 3.4 x 2.0 x 1.8 cm. RADIATION DOSE DELIVERED: 929.34mGy.cm Total DLP DATA REPOSITORY: All CT scans at this facility are submitted to the National Radiology Data Registry (NRDR) Dose Index Registry (DIR) with the [employer] (ACR). RADIATION OPTIMIZATION: All CT scans at this facility use at least one of these dose optimization te chniques: automated exposure control; mA and/or kV adjustment per patient size (includes targeted exa ms where dose is matched to clinical indication); or iterative reconstruction.
[2021-02-25 19:31] LABS: ALT 25 U/L (16-63); AST 14 U/L (15-37); Albumin 3.4 g/dL (3.4-5.0); Alkaline Phosphatase 77 U/L (46-116); Anion Gap 5.2 mmol/L (3-11); BUN 22 mg/dL (7-18); Bilirubin, Total 2.8 mg/dL (0.2-1.0); CO2 32.8 mmol/L (21.0-32.0); CREATININE 1.6 mg/dL (0.70-1.30); Calcium 9.9 mg/dL (8.5-10.1); Chloride 104 mmol/L (98-107); Glucose 116 mg/dL (74-106); Potassium 3.6 mmol/L (3.5-5.1); Sodium 142 mmol/L (136-145); Total Protein 7.5 g/dL (6.4-8.2); Troponin I < 0.05 ng/mL (<0.06)
[2021-02-25 19:42] LABS: Magnesium 1.7 mg/dL (1.8-2.4)
[2021-02-25 19:44] LABS: Bilirubin Negative (Negative); Blood Negative (Negative); Clarity Clear (Clear); Glucose Negative (Negative); Ketones Negative (Negative); Leukocyte Esterase Negative (Negative); Nitrite Negative (Negative); Specific Gravity 1.025 (1.005-1.025); Urobilinogen 0.2 EU/dL (Up TO 0.2); pH 6.5 (5-8)
--- NOTE | 2021-02-25 19:45 | DI.CT_ITS ---
Exam(s) CT CHEST/ABD/PEL WO EXAM: CT CHEST/ABD/PEL WO CLINICAL HISTORY: hiccups, fatigue, confusion. TECHNIQUE: Imaging Protocol: Axial computed tomography images with coronal and sagittal reformatted images were created and reviewed CONTRAST MATERIAL: Noncontrast COMPARISON: CT CT ABDOMEN PELVIS WO from 06/12/2018 FINDINGS: CHEST: Evaluation of the lungs are somewhat limited by respiratory motion. No infiltrate. Tiny bilateral p leural effusions. The heart is enlarged. There are coronary artery calcifications. No aortic aneur ysm. No adenopathy. Smoothly marginated 1 centimeter perifissural nodule left lower lobe. ABDOMEN: Liver: Normal density. No measurable mass. Gallbladder and biliary tract: Stable appearance of rounded mildly hyperdense lesion at the dependent portion of the gallbladder, stone versus sludge ball. No biliary dilation. No gallbladder wall thi ckening or pericholecystic fluid. Pancreas: Normal density, no abnormal calcifications or inflammatory process. Spleen: Normal. Kidneys: Severely atrophic [place] kidneys. Stable left hydronephrosis.. Stable appearance of left p elvic renal transplant. No radiodense stones or obstructive uropathy. No masses seen. Adrenal glands: No masses seen. Aorta: Abdominal portion non-dilated. Lymph nodes: Within normal limits. Soft tissues: Midline surgical scar. PELVIS: Bladder: Symmetric distention, no gross wall thickening. Bowel: No obstruction or bowel wall thickening. Diverticulosis. No evidence of diverticulitis. Appe ndix normal. Peritoneal cavity: No ascites, collection or mesenteric inflammatory response. Bones: Degenerative changes, unremarkable for age.. Reproductive organs: Within normal limits. IMPRESSION: No change in sludge ball versus gallstone. No acute abnormality in the chest abdomen or pelvis.. RADIATION DOSE DELIVERED: 1,230.68mGy.cm Total DLP DATA REPOSITORY: All CT scans at this facility are submitted to the National Radiology Data Registry (NRDR) Dose Index Registry (DIR) with the [employer] (ACR). RADIATION OPTIMIZATION: All CT scans at this facility use at least one of these dose optimization te chniques: automated exposure control; mA and/or kV adjustment per patient size (includes targeted exa ms where dose is matched to clinical indication); or iterative reconstruction.
[2021-02-25] MEDS: Normal Saline 500 ML IV (19:48)
[2021-02-25 19:56] LABS: Bacteria Negative HPF (Negative); C & S Indicated? No; Casts Negative LPF (Negative); Crystals Negative HPF (Negative); Epithelial Cells Rare HPF (Negative); Mucus Moderate (Negative); RBC 0-2 HPF (0-2); WBC 0-2 HPF (0-5)
[2021-02-25 20:08] LABS: NT-proBNP 907 pg/mL (<300)
--- NOTE | 2021-02-25 20:20 | DI.VRAD_ITS ---
PROCEDURE INFORMATION: Exam: CT Head Without Contrast Exam date and time: 02/25/2021 7:33 PM Age: 70 years old Clinical indication: Alteration of consciousness; Confusion, R/O acute disease/cva TECHNIQUE: Imaging protocol: Computed tomography of the head without contrast. Radiation optimization: All CT scans at this facility use at least one of these dose optimization techniques: automated exposure control; mA and/or kV adjustment per patient size (includes targeted exams where dose is matched to clinical indication); or iterative reconstruction. Other technique: STROKE PROTOCOL was implemented. COMPARISON: MRI - BRAIN WO CONTRAST 05/02/2014 3:58 PM FINDINGS: Brain: There is a 3.4 x 2.0 x 1.8 cm hyperdense oval-shaped mass in the left basal ganglia, concerning for acute hematoma. There is mild surrounding vasogenic edema creating mass effect on the left lateral ventricle and adjacent parenchyma. No midline shift. Cerebral ventricles: No ventriculomegaly. Paranasal sinuses: Visualized sinuses are unremarkable. No fluid levels. Mastoid air cells: Visualized mastoid air cells are well aerated. Bones/joints: Unremarkable. No acute fracture. Soft tissues: Unremarkable. IMPRESSION: 3.4 cm hyperdense mass in the left basal ganglia, concerning for acute hematoma. There is mild mass effect on the adjacent structures without midline shift. This lesion demonstrates characteristics of a hypertensive hemorrhage. Correlate with clinical findings. ASSESSMENT: ASPECTS ([place] Stroke Program Early CT Score) is n/a. THIS REPORT CONTAINS FINDINGS THAT MAY BE CRITICAL TO PATIENT CARE. The findings were verbally communicated via telephone conference with tatiana glover at 8:10 PM EDT on 02/25/2021. The findings were acknowledged and understood. Dictated and Authenticated by: Dang Dorman MD. Ordering:CARLOS Burr MD
[2021-02-25 20:37] LABS: Source Nasal/Nares
[2021-02-25] MEDS: Normal Saline 250 ML IV (20:46)
--- NOTE | 2021-02-25 20:52 | DI.VRAD_ITS ---
PROCEDURE INFORMATION: Exam: CT Chest Without Contrast; Diagnostic Exam date and time: 02/25/2021 7:50 PM Age: 70 years old Clinical indication: Other: Hicups; Other: Hiccups, fatigue, confusion; Prior surgery; Surgery date: 6+ months; Surgery type: Kidney transplant 2016, bladder repair TECHNIQUE: Imaging protocol: Diagnostic computed tomography of the chest without contrast. Radiation optimization: All CT scans at this facility use at least one of these dose optimization techniques: automated exposure control; mA and/or kV adjustment per patient size (includes targeted exams where dose is matched to clinical indication); or iterative reconstruction. COMPARISON: CR CHEST 2 VIEWS PA,LAT 08/17/2017 3:13 PM FINDINGS: Lungs: Subpleural 1.1 cm nodule along within the left lower lobe along the left greater fissure. Pleural spaces: Bilateral very small pleural effusions. Heart: Mild to moderate cardiomegaly. Aorta: Unremarkable. No aortic aneurysm. Lymph nodes: Unremarkable. No enlarged lymph nodes. Bones/joints: Unremarkable. No acute fracture. Soft tissues: Unremarkable. IMPRESSION: 1. No evidence of acute cardiopulmonary process. 2. Bilateral very small pleural effusions. 3. [id number] cardiomegaly. PROCEDURE INFORMATION: Exam: CT Abdomen And Pelvis Without Contrast Exam date and time: 02/25/2021 7:50 PM Age: 70 years old Clinical indication: Other: Hicups; Other: Hiccups, fatigue, confusion; Prior surgery; Surgery date: 6+ months; Surgery type: Kidney transplant 2016, bladder repair TECHNIQUE: Imaging protocol: Computed tomography of the abdomen and pelvis without contrast. Radiation optimization: All CT scans at this facility use at least one of these dose optimization techniques: automated exposure control; mA and/or kV adjustment per patient size (includes targeted exams where dose is matched to clinical indication); or iterative reconstruction. COMPARISON: CR CHEST 2 VIEWS PA,LAT 08/17/2017 3:13 PM FINDINGS: Liver: Normal. No mass. Gallbladder and bile ducts: Faintly hyperdense rounded structure within the dependent gallbladder most likely compatible with a gallstone or sludge ball measuring 9 mm. Pancreas: Normal. No ductal dilation. Spleen: Normal. No splenomegaly. Adrenal glands: Normal. No mass. Kidneys and ureters: Bilateral renal atrophy. Transplant kidney within the left iliac fossa. No evidence of hydronephrosis or obstructing renal stone. Stomach and bowel: Mild diverticulosis is present in the distal colon. Appendix: No evidence of appendicitis. Intraperitoneal space: Unremarkable. No free air. No significant fluid collection. Vasculature: Unremarkable. No abdominal aortic aneurysm. Lymph nodes: Unremarkable. No enlarged lymph nodes. Urinary bladder: Unremarkable as visualized. Reproductive: Unremarkable as visualized. Bones/joints: Unremarkable. No acute fracture. Soft tissues: Unremarkable. Other findings: The study is limited by motion artifact. IMPRESSION: 1. No evidence of acute abdominal or pelvic process. 2. Faintly hyperdense rounded structure within the dependent gallbladder most likely compatible with a gallstone or sludge ball measuring 9 mm. 3. Mild sigmoid diverticulosis. Dictated and Authenticated by: Branden Blackmon MD. Ordering:CARLOS Burr MD
[2021-02-25 21:27] LABS: COVID-19 PCR Negative (Negative)
[2021-02-25 21:28] LABS: INR 1.1 (0.9-1.1); PTT Activated 23.1 sec (21.0-27.5)
[2021-02-26] VITALS (97 sets, daily range): BP systolic 117–178; BP diastolic 48–109; PULSE 38–67; RESP 0–27; TEMP 35.6–36.8; O2SAT 89–98
--- NOTE | 2021-02-26 | DI.CT_ITS ---
Exam(s) CT HEAD WO EXAM: CT HEAD WO CLINICAL HISTORY: basal ganglia bleed.. TECHNIQUE: Imaging Protocol: Axial computed tomography images with coronal and sagittal reformatted images were created and reviewed COMPARISON: CT CT HEAD WO from 02/25/2021 FINDINGS: There has been no significant change in size of previously noted left basal ganglia parenchymal hemor rhage. There is no significant change in the amount of mass effect. No new areas of hemorrhage or i nfarct is seen. IMPRESSION: Stable left basal ganglia hemorrhage. RADIATION DOSE DELIVERED: 825.82mGy.cm Total DLP DATA REPOSITORY: All CT scans at this facility are submitted to the National Radiology Data Registry (NRDR) Dose Index Registry (DIR) with the [employer] (ACR). RADIATION OPTIMIZATION: All CT scans at this facility use at least one of these dose optimization te chniques: automated exposure control; mA and/or kV adjustment per patient size (includes targeted exa ms where dose is matched to clinical indication); or iterative reconstruction.
--- NOTE | 2021-02-26 | DI.MRI_ITS ---
Exam(s) MR BRAIN WO EXAM: MR BRAIN WO CLINICAL HISTORY: basal ganglia hemorrhage TECHNIQUE: Multiplanar multisequence MRI of the brain was performed. COMPARISON: CT CT HEAD WO from 02/26/2021 MR MR ANGIO BRAIN WO from 02/26/[address] HEAD WO from 02/26/2021 FINDINGS: CEREBRAL PARENCHYMA: Left basal ganglia intra-axial hemorrhage is again noted, seen on the recent CT scan. This measures approximately 3 cm AP by 2 cm wide by 3 cm craniocaudal and exhibits peripheral T1 hyperintensity con sistent with methemoglobin phase. There is mass effect upon the ipsilateral lateral ventricle. Mini mal shift of midline structures, approximately 1 millimeter. No other areas of hemorrhage are seen b ut there is abundant periventricular signal abnormality consistent with chronic small vessel ischemic changes and multiple lacunar infarcts, none of which exhibit acute signal on diffusion imaging and n one of which are hemorrhagic. There is no significant focal signal abnormality in the cerebellar hemispheres nor within the medhat, m idbrain, and thalami. PITUITARY GLAND: No mass nor parasellar abnormality. No obvious abnormality in the cavernous sinuses. FLOW VOIDS: The expected flow void are noted. No evidence of obvious aneurysm nor obvious vascular ma lformation. PARANASAL SINUSES: The visualized paranasal sinuses appear unremarkable. No obvious finding ORBITS: No obvious findings. IMPRESSION: 1. Left basal ganglia hemorrhage as described above, similar in size to the CT scan of 02/26/2021, ag ain exhibiting mass effect upon the adjacent left lateral ventricle and minimal shift, not increased. Peripheral T1 hyperintensity implies that this hemorrhage is in subacute-methemoglobin phase. 2. 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 Th ere are multiple nonhemorrhagic nonacute appearing lacunar infarcts in the Ama in supra ventricular white matter bilaterally. 3. Although hemorrhage in this region is usually related to hypertension, recommend repeat MRI in 6 w eeks with IV contrast to determine if there is an underlying lesion in the brain as etiology. DATA REPOSITORY:
--- NOTE | 2021-02-26 | DI.MRI_ITS ---
Exam(s) MR ANGIO BRAIN WO EXAM: MR ANGIO BRAIN WO CLINICAL HISTORY: basal ganglia bleed TECHNIQUE: MRA BRAIN performed on 1.5 serina unit using [id number] sequence. No IV contrast COMPARISON: CT scan was reviewed FINDINGS: ANTERIOR CIRCULATION: Both internal carotid arteries are patent in the skull base-carotid canals as w ell as within the cavernous sinuses. Both ophthalmic arteries are patent and originated conventional fashion off of the intracavernous internal carotid arteries. Supraclinoid aspects of both internal carotid arteries are patent. Both middle cerebral arteries are demonstrated be patent out to the vernon vian fissure branches. Also no aneurysm seen in these vessels. Left A1 segment is patent. No visualized right A1 segment. This may be developmental or acquired. Both anterior cerebral arteries are patent. The right anterior cerebral artery is fed by the anterio r communicating artery from the left side. There is no evidence of aneurysm at the level of the ante rior communicating artery nor elsewhere in the digdpe-wt-Chfhry. POSTERIOR CIRCULATION: Both vertebral arteries are patent at the skull base and contribute to the for mation of the basilar artery. The left vertebral artery is dominant. The basilar artery ascends wit h normal luminal diameter and no evidence of intraluminal thrombus nor dissection. Distally it gives off patent superior cerebellar arteries. Above this level it terminates as patent bilateral posteri or cerebral arteries. On the left side there is contribution to left posterior cerebral artery flow from a 1 millimeter diameter posterior communicating artery on the left side of the [id number]. A similar vessel is not seen on the right side of the [id number]-jt-[id number]. There is no evidence of an eurysm of the tip of the basilar artery nor elsewhere in the [id number]-ry-[id number]. Documented left basal ganglia hemorrhage noted. This is discussed on the separate brain MRI dictatio n IMPRESSION: 1. No new left basal ganglia hemorrhage. 2. Absent right A1 segment. This may be developmental or acquired. 3. No high-grade stenosis or aneurysm in the visualized [id number]-jl-Jbkvfc vessels. A left posterior communicating artery is noted. The left vertebral artery is dominant. DATA REPOSITORY:
[2021-02-26] MEDS: cloNIDine 0.1 MG TAB PO ×2 (03:59→10:15)
[2021-02-26] MEDS: Lactated Ringers 1,000 ML 80 ML IV ×2 (04:37→18:17)
[2021-02-26] MEDS: MAGNESIUM SULFATE 2 GM/50 ML BAG IVPB (04:37)
[2021-02-26] MEDS: Normal Saline Flush 10 ML SYR IVP ×2 (05:03→20:12)
--- NOTE | 2021-02-26 07:10 | HPE_ITS ---
Date of service: 02/26/21 Time of Service: 07:11 Assessment and Plan Assessment and plan (1) Basal ganglia hemorrhage: Status: Acute Assessment and plan: Monitor for deteriorating condition with Q2H nakia rochecks. Holding ASA and Eliquis. Will need PT/OT evaluation. 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 Holding glipizide until further data on blood glucose levels known. Glucose 113 this AM (3) Stroke, embolic: Status: Acute Assessment and plan: Previous history. On ASA, Statin. Hold ASA (4) Kidney transplant recipient: Status: Acute Assessment and plan: Cont 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 therapy: mycophenolate and Tacrolimus. (5) Hypertension: Status: Acute Assessment and plan: Cont Amlodipine. Hold metoprolol d/t bradycardia. PRN po clonidine with parameters. Monitor. (6) Cardiomyopathy due to hypertension: Status: Acute Assessment and plan: On a BB that is now being held d/t bradycardia. His NTProBNP is mildly elevated. He is receiving LR at 80ml/hr until he shows he can maintain hydration via oral route. Watch for volume overload. (7) Atrial fibrillation: Status: Acute Assessment and plan: Sinus bradycardia currently. Holding BB and Eliquis. Telemetry. (8) Chronic renal insufficiency: Status: Chronic Assessment and plan: Previous renal transplant d/t renal failure. Now with chronic insufficiency; baseline creatinine 1.3-1.4. Presented with creatinine of 1.6 Monitor. History of Present Illness History of Present Illness Chief Complaint: Confusion and fatigue Narrative: This is a 70 yo male with a PMH of renal failure s/p renal transplant in 2016, HTN, HLD, [place], Afib, CHF, CVA, hepatitis C. His provided the history along with the patient who was slow in his responses and a generally poor historian. He has had hiccups for 2 weeks; even in his sleep. His stated he is sleeping often during the day which is not his norm. He has been eating OK. He was previously evaluated at Urgent care and had lab and urinalysis performed. UA neg for UTI. Mild increase noted in BUN and creatinine otherwise no specific findings to explain his lethargy. With worsening symptoms he presented to the ED. He had not complained of a STANTON, weakness of an extremity, dizziness/vertigo, N/V/abd pain, SOA/cough, F/C. The Thursday before admission he had a negative COVID test. Repeat test in the ED negative. Noted sinus bradycardia with rate of [address] head, chest/abd/pelvis obtained. A 3.4 cm hyperdense mass in the left basal ganglia noted; hemorrhagic and likely d/t hypertension. His BP was as high as 228/191; accuracy of which was questioned d/t BP cuff. Next BP 173/60. Troponin was negative. BNP 907. ED physician [place] [facility] [place] that deferred the case to neurology but did state no surgical intervention indicated. Neurology recommended holding ASA and Eliquis and give Andexxa or KCentra. Andexxa administered. Also recommended maintaing SBP <140 and DBP <90. Neuro checks Q2H. Repeat CT head for any changes. No beds available at [facility] [place]. ED physician made multiple phone calls for transfer but no ICU beds available at [facility], [facility], [facility], [facility], [place], [place], [facility], [facility], [facility] and [facility]; all were at capacity and refusing transfers at this time. Review of Systems All systems reviewed & are unremarkable except as noted in HPI and below PFSH Medical History (Updated 02/27/21 @ 10:08 by Polina Segundo MD) Atrial fibrillation BPH (benign prostatic hyperplasia) CHF (congestive heart failure) Chronic kidney disease CVA (cerebral vascular accident) Diabetes Fistula GERD (gastroesophageal reflux disease) Hepatitis C HTN (hypertension) Hyperlipemia Hypothyroidism Myocardial infarction Obstructive sleep apnea Subsequent non-ST elevation (NSTEMI) myocardial infarction within 4 weeks of initial infarction stents Surgical History Arthroplasty of knee 2005-right BIOPSY, KIDNEY (10/16/14) [facility] Colonoscopy - MAC 2008 H/O bladder repair surgery H/O vasectomy History of hernia repair KIDNEY TRANSPLANT (09/16/15[place] [facility] Rotator Cuff Repair left Family History Mother Essential hypertension Father Myocardial infarction Stroke Brother Essential hypertension Neoplasm Social History Smoking/Tobacco Use Status: Former Tobacco Use Smoking risk assessment performed?: Yes Alcohol Intake: current Alcohol Intake frequency: holidays/special occasions only Drug use: Occasionally Substance use type: marijuana Household members: spouse Housing: house Number of Children: 1 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 Do you feel safe at home: Yes Do you feel safe in your relationship?: Yes Meds Allergies and Home Medications Allergies Allergy/AdvReac Type Severity Reaction Status Date / Time No Known Allergies Allergy Verified 02/22/21 12:43 Home Medications Medication Instructions Recorded Confirmed Type blood-glucose meter #1 ea 09/27/14 02/25/21 History lancets #100 ea 09/27/14 02/25/21 History mycophenolate mofetil [Cellcept] 250 mg PO BID 04/15/16 02/25/21 History tacrolimus [Prograf] 3 mg PO DIRECTED 04/15/16 02/26/21 History ascorbic acid (vitamin C) [Vitamin 500 mg PO TID 09/05/16 02/25/21 History C] apixaban 5 mg tablet 5 mg PO BID 03/04/19 02/25/21 History atorvastatin 40 mg tablet 40 mg PO QHS 03/04/19 02/25/21 History blood sugar diagnostic #180 strip 03/04/19 02/25/21 Rx metoprolol succinate 25 mg capsule 25 mg PO DAILY 03/04/19 02/25/21 History sprinkle, ext. release 24 hr nitroglycerin 0.4 mg sublingual 0.4 mg SL Q5M PRN 03/04/19 02/25/21 History tablet omeprazole 20 mg capsule,delayed 20 mg PO DAILY PRN #90 cap 06/17/19 02/25/21 Rx release sildenafil 100 mg tablet 100 mg PO as directed #10 tab-cap 06/17/19 02/25/21 Rx MDD 100 mg aspirin 81 mg tablet,delayed 81 mg PO DAILY 04/17/20 02/25/21 History release blood sugar diagnostic #180 each 10/17/20 02/25/21 Rx glipizide 10 mg tablet, extended 10 mg PO BID #180 tab 10/17/20 02/25/21 Rx release 24 hr [id number] acid 0.4 2 tab PO DAILY tab 01/16/21 02/25/21 History mg-lycopene 300 mcg-lutein 250 mcg tablet levothyroxine 137 mcg tablet 137 mcg PO DAILY #90 tab-cap 01/17/21 02/25/21 Rx tamsulosin 0.4 mg capsule 0.4 mg PO DAILY #90 tab-cap 01/29/21 02/25/21 Rx magnesium gluconate 500 mg tablet See Rx Instructions PO .COMPLEX 02/25/21 02/25/21 History tab amlodipine 2.5 mg PO HS 02/26/21 02/26/21 History calcitriol 0.5 mcg PO DAILY 02/26/21 02/26/21 History Exam Const General: cooperative and no acute distress Orientation: awake, oriented to person and oriented to place [facility] Head: normocephalic and atraumatic Eyes General: appearance normal, both eyes and all related structures Sclera: sclerae normal Pupils: PERRL Neck Neck: full ROM Resp Effort & Inspection: normal respiratory effort Auscultation: clear to auscultation bilaterally Cardio Rate: regular rate Rhythm: regular rhythm Heart Sounds: S1 normal and S2 normal GI Palpation: soft and nontender Skin General skin exam: no rashes or lesions noted Neuro General: no focal motor deficits Cranial Nerves: no nystagmus Cognition: normal cognition Speech: speech normal Results Labs Result diagrams: 02/26/21 11:30 02/26/21 11:30 Labs: Laboratory Results - last 24 hr 02/25/21 02/25/21 02/25/21 19:05 19:05 19:05 WBC RBC Hgb Hct MCV MCH MCHC RDW Plt Count MPV Immature Gran % Neutrophils % Lymphocytes % Monocytes % Eosinophils % Basophils % Nucleated RBC % Absolute Neutrophils Absolute Lymphocytes Absolute Monocytes Absolute Eosinophils Absolute Basophils PT INR APTT Sodium 142 Potassium 3.6 Chloride 104 Carbon Dioxide 32.8 H Anion Gap 5.2 BUN 22 H Creatinine 1.6 H Estimated GFR/1.73 m2 42.70 Glucose 116 H Calcium 9.9 Magnesium 1.7 L Total Bilirubin 2.8 H AST 14 L ALT 25 Alkaline Phosphatase 77 Ammonia 14 Troponin I < 0.05 NT-Pro-B Natriuret Pep Total Protein 7.5 Albumin 3.4 Urine Color Urine Clarity Urine pH Ur Specific [place] Urine Protein Urine Ketones Urine Blood Urine Nitrite Urine Bilirubin Urine Urobilinogen Ur Leukocyte Esterase Urine RBC Urine WBC Ur Epithelial Cells Urine Crystals Urine Bacteria Urine Casts Urine Mucus Ur Culture Indicated? Urine Glucose COVID-19 Source SARS-CoV-2 (PCR) 02/25/21 02/25/21 02/25/21 19:05 19:05 19:05 WBC 10.14 RBC 5.28 Hgb 15.8 Hct 47.3 MCV 89.6 MCH 29.9 MCHC 33.4 RDW 12.6 Plt Count 282 MPV 9.5 Immature Gran % 0.3 Neutrophils % 68.6 Lymphocytes % 18.8 Monocytes % 8.0 Eosinophils % 3.6 Basophils % 0.7 Nucleated RBC % 0 Absolute Neutrophils 6.95 H Absolute Lymphocytes 1.91 Absolute Monocytes 0.81 H Absolute Eosinophils 0.37 Absolute Basophils 0.07 PT 11.0 INR 1.1 APTT 23.1 Sodium Potassium Chloride Carbon Dioxide Anion Gap BUN Creatinine Estimated GFR/1.73 m2 Glucose Calcium Magnesium Total Bilirubin AST ALT Alkaline Phosphatase Ammonia Troponin I NT-Pro-B Natriuret Pep 907 H Total Protein Albumin Urine Color Urine Clarity Urine pH Ur Specific [place] Urine Protein Urine Ketones Urine Blood Urine Nitrite Urine Bilirubin Urine Urobilinogen Ur Leukocyte Esterase Urine RBC Urine WBC Ur Epithelial Cells Urine Crystals Urine Bacteria Urine Casts Urine Mucus Ur Culture Indicated? Urine Glucose COVID-19 Source SARS-CoV-2 (PCR) 02/25/21 02/25/21 19:35 20:20 WBC RBC Hgb Hct MCV MCH MCHC RDW Plt Count MPV Immature Gran % Neutrophils % Lymphocytes % Monocytes % Eosinophils % Basophils % Nucleated RBC % Absolute Neutrophils Absolute Lymphocytes Absolute Monocytes Absolute Eosinophils Absolute Basophils PT INR APTT Sodium Potassium Chloride Carbon Dioxide Anion Gap BUN Creatinine Estimated GFR/1.73 m2 Glucose Calcium Magnesium Total Bilirubin AST ALT Alkaline Phosphatase Ammonia Troponin I NT-Pro-B Natriuret Pep Total Protein Albumin Urine Color Yellow Urine Clarity Clear Urine pH 6.5 Ur Specific [place] 1.025 Urine Protein >=300 H Urine Ketones Negative Urine Blood Negative Urine Nitrite Negative Urine Bilirubin Negative Urine Urobilinogen 0.2 Ur Leukocyte Esterase Negative Urine RBC 0-2 Urine WBC 0-2 Ur Epithelial Cells Rare Urine Crystals Negative Urine Bacteria Negative Urine Casts Negative Urine Mucus Moderate Ur Culture Indicated? No Urine Glucose Negative COVID-19 Source Nasal/Nares SARS-CoV-2 (PCR) Negative Last Vital Signs Temp 36.6 C 02/26/21 05:58 Pulse 42 L 02/26/21 05:58 Resp 18 02/26/21 05:58 BP 148/68 H 02/26/21 05:58 Pulse Ox 94 02/26/21 05:58
[2021-02-26] MEDS: Tacrolimus 0.5 MG CAP 3 MG PO (08:22)
[2021-02-26] MEDS: Tamsulosin 0.4 MG CAPCR PO (08:23)
--- NOTE | 2021-02-26 09:17 | PDOC.CMIN ---
- If Service Date Differs Date of service: 02/26/21 Time of Service: 09:17 Care Management Initial Assess REASON FOR HOSPITALIZATION:: Basal Ganglia Hemorrhage PAST MEDICAL HISTORY/PAST SURGICAL HISTORY:: Medical History (Updated 02/25/21 @ 20:39 by Aminah Walsh DO). Atrial fibrillation. BPH (benign prostatic hyperplasia). CHF (congestive heart failure). Chronic kidney disease. CVA (cerebral vascular accident). Diabetes. Fistula. GERD (gastroesophageal reflux disease). Hepatitis C. HTN (hypertension). Hyperlipemia. Hypothyroidism. Myocardial infarction. Obstructive sleep apnea. Subsequent non-ST elevation (NSTEMI) myocardial infarction within 4 weeks of initial infarction. stents. Surgical History . Arthroplasty of knee. 2006-right. BIOPSY, KIDNEY (10/16/14). [facility]-RIGHT. Colonoscopy - MAC. 2008. H/O bladder repair surgery. H/O vasectomy. History of hernia repair. KIDNEY TRANSPLANT (09/16/15). [facility]-09/16/15. Rotator Cuff Repair. left PREVIOUS FUNCTIONAL STATUS/SOCIAL/FAMILY SUPPORTS:: Cody is exhaused per [employer] and was sleeping when CM tried to meet with him. CM continues to follow. CURRENT FUNCTIONAL STATUS:: Cody was sleeping each time CM attempted to meet with him. CM continues to follow. ADVANCE DIRECTIVES:: None on file Has patient been provided with info about the portal/API?: Yes Did the patient sign up for the portal?: Yes CODE STATUS:: Full Code INSURANCE COVERAGE / FINANCIAL ISSUES:: BC BS. MCR Replacement Policy. Medicare/C&S Admin SER C CURRENT HOME/COMMUNITY SERVICES/EQUIPMENT:: CM continues to follow. PRIMARY CARE PHYSICIAN:: [facility] POTENTIAL DISCHARGE NEEDS:: Undetermined at this time. CM continues to support. PATIENT/FAMILY EDUCATION NEEDS:: Review discharge instructions and plan to follow up with out patient providers, ask me three. TRANSPORTATION:: Via private vehicle with family PLAN:: Continue to monitor, may consider transferring Cody if a bed becomes available at [facility]. CM continues to follow.
[2021-02-26] MEDS: amLODIPine 5 MG TAB PO (10:14)
[2021-02-26] MEDS: Calcitriol 0.25 MCG CAP PO (10:15)
[2021-02-26 11:40] LABS: Abs Immature Grans 0.04 10^3/uL (0.0-0.06); Absolute Basophil Count 0.07 10^3/uL (0.0-0.2); Absolute Eosinophil Count 0.34 10^3/uL (0.0-0.7); Absolute Lymphocyte Count 0.82 10^3/uL (1.2-3.4); Absolute Monocyte Count 0.71 10^3/uL (0.1-0.8); Absolute Neutrophil Count 7.76 10^3/uL (1.2-6.7); Basophils % 0.7; Eosinophils % 3.5; HCT 42.2 % (40.0-50.0); HGB 14.4 g/dL (13.5-17.5); Immature Grans % 0.4; Lymphocytes % 8.4; MCH 30.3 pg (27.0-33.0); MCHC 34.1 % (32.0-36.0); MCV 88.7 fL (80-95); MPV 9.4 fL (8.0-11.0); Monocytes % 7.3; Neutrophils % 79.7; Nucleated RBC 0 %; Platelet Count 209 10^3/uL (130-400); RBC 4.76 10^6/uL (4.36-5.78); RDW 12.4 % (11.8-14.1); RDW-SD 40.6 fL; WBC 9.74 10^3/uL (4.4-10.8)
[2021-02-26 11:52] LABS: Anion Gap 5.6 mmol/L (3-11); BUN 19 mg/dL (7-18); CO2 31.4 mmol/L (21.0-32.0); CREATININE 1.4 mg/dL (0.70-1.30); Calcium 9.1 mg/dL (8.5-10.1); Chloride 105 mmol/L (98-107); Estimated GFR 49.82 (mL/min/1.73m2); Glucose 147 mg/dL (74-106); Potassium 3.8 mmol/L (3.5-5.1); Sodium 142 mmol/L (136-145)
--- NOTE | 2021-02-26 13:10 | W.NEUROCONSU ---
Date of service: 02/26/21 Time of Service: 13:10 Assessment and Plan Assessment and plan (1) Hiccups: Status: Acute (2) Basal ganglia hemorrhage: Status: Acute Assessment and plan: Mr. Bolden is a 70 year-old right-handed man s/p renal transplant, prior ischemic stroke, and atrial fibrillation who was admitted with: #1. Left basal ganglia hemorrhagic stroke, complicated by apixaban and aspirin; s/p treatment with Andexxa. Manifested by generalized weakness and confusion, ?slight right pronator drift, ?mild dysarthria. -Continue to hold aspirin and apixaban. Would wait minimal 14 days before re-starting these medications. Also, would recommend cardiology evaluation for possible Watchman s/p discharge. -Get MRI brain w/o to look for prior hemorrhage, evidence of amyloid. -Get MRA brain w/o to look for cerebral aneurysm. -Ideally get BP <140/90 but goal is <160. Avoid hypotension. -PT, OT, and ST -Consider EEG given waxing and waning AMS. #2. Hiccups. Chronic, intermittent, and intractable. Consider starting baclofen. History of Present Illness History of Present Illness Chief Complaint: hemorrhagic stroke Narrative: Handedness: right. HPI: Mr. Bolden is a 70 year-old man with renal failure s/p renal transplant, remote ischemic stroke (Mar 2014 at which time I had the pleasure of meeting [facility]), NSTEMI s/p cardiac stent January 2019, atrial fibrillation/flutter (onset January 2019), hypertension, hepatitis C, BPH, hypothyroidism, and GERD. Mr. Bolden was admitted yesterday with ~10 days of confusion and fatigue. He underwent work-up in the ER which showed an acute/subacute left basal ganglia hemorrhagic stroke. [facility] has no ICU beds, however, numerous other hospitals in [place], [place], [place], [place] had no ICU beds either such that he was admitted to [facility] and then transferred to an ICU bed later today once was made available. At baseline, he is on aspirin and apixaban 5mg BID. He was given Andexxa in the ER. His BPs have remained 140-170s since admission with noted braycardia. This am there was concern for acute decline with right leg weakness, however, this was not seen on MD assessment. An updated CTH was performed which showed no change in stroke size. Of interest, he recognized/remembered me from despite the fact that I was wearing a mask and that he has had confusion off/on today. He otherwise has been having frequent hiccups for the last 2 weeks. These are occurring even during sleep. He notes that he has had hiccups intermittently and chronically since his renal transplant in 2014. He has never tried medications for these as he was afraid to hurt his kidney. Consults Requesting physician: Rolando Lopes Review of Systems All systems reviewed & are unremarkable except as noted in HPI and below [facility] Medical History (Updated 02/26/21 @ 13:13 by Shannan Turner MD) Atrial fibrillation BPH (benign prostatic hyperplasia) CHF (congestive heart failure) Chronic kidney disease CVA (cerebral vascular accident) Diabetes Fistula GERD (gastroesophageal reflux disease) Hepatitis C HTN (hypertension) Hyperlipemia Hypothyroidism Myocardial infarction Obstructive sleep apnea Subsequent non-ST elevation (NSTEMI) myocardial infarction within 4 weeks of initial infarction stents Surgical History Arthroplasty of knee 2006-right BIOPSY, KIDNEY (10/16/14) [facility]-RIGHT Colonoscopy - MAC 2008 H/O bladder repair surgery H/O vasectomy History of hernia repair KIDNEY TRANSPLANT (09/16/15) [facility]-09/16/15 Rotator Cuff Repair left Family History Mother Essential hypertension Father Myocardial infarction Stroke Brother Essential hypertension Neoplasm Social History Smoking/Tobacco Use Status: Former Tobacco Use Smoking risk assessment performed?: Yes Alcohol Intake: current Alcohol Intake frequency: holidays/special occasions only Drug use: Occasionally Substance use type: marijuana Household members: spouse Housing: house Number of Children: 1 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 Do you feel safe at home: Yes Do you feel safe in your relationship?: Yes Visit Medication and Allergies Active Medications Generic Name Dose Route Start Last Admin Trade Name Freq PRN Reason Stop Dose Admin Acetaminophen 650 mg 02/25/21 23:25 Acetaminophen 325 Mg Tab PO Q4H PRN PRN Amlodipine Besylate 5 mg 02/26/21 08:30 02/26/21 10:14 Amlodipine 5 Mg Tab PO 5 mg DAILY JUAN R Administration Atorvastatin Calcium 40 mg 02/26/21 22:00 Atorvastatin 40 Mg Tab PO HS JUAN R Calcitriol 0.25 mcg 02/26/21 08:30 02/26/21 10:15 Calcitriol 0.25 Mcg Cap PO 0.25 mcg DAILY JUAN R Administration Clonidine 0.1 mg 02/26/21 03:02 02/26/21 10:15 Clonidine 0.1 Mg Tab PO 0.1 mg Q6H PRN Administration SBP > 140 or DBP > 90 Dimethicone/Zinc Oxide 0 gm 02/25/21 23:19 Velasquez Protect Cream 142 Gm Tube TP PRN PRN Ringer's Solution 1,000 mls @ 80 mls/hr 02/25/21 23:30 02/26/21 04:37 IV 80 mls/hr INFUSION JUAN R Administration IV Miscellaneous Supplies 1 each 02/25/21 19:15 Iv Access IV DIRECTED [facility] Levothyroxine Sodium 137 mcg 02/26/21 06:00 02/26/21 06:39 Levothyroxine 137 Mcg Tab PO 137 mcg 0600 [facility] Administration Magnesium Hydroxide 30 ml 02/25/21 23:25 Milk Of Magnesia 30 Ml Cup PO DAILY PRN PRN Metoprolol Succinate 25 mg 02/26/21 08:30 Metoprolol Cr 25 Mg Tabcr PO DAILY [facility] Mycophenolate Mofetil 250 mg 02/26/21 08:30 Mycophenolate Mofetil 500 Mg Tab PO BID JUAN R Polyethylene Glycol 17 gm 02/25/21 23:25 Polyethylene Glycol 3350 17 Gm Packet PO DAILY PRN PRN Constipation Sodium Chloride 0 ml 02/25/21 19:01 02/26/21 05:03 Normal Saline Flush 10 Ml Syr IVP 20 ml PRN PRN Administration Tacrolimus 3 mg 02/26/21 08:30 02/26/21 08:22 Tacrolimus 0.5 Mg Cap PO 2 mg BID JUAN R Administration Tamsulosin HCl 0.4 mg 02/26/21 08:30 02/26/21 08:23 Tamsulosin 0.4 Mg Capcr PO 0.4 mg DAILY JUAN R Administration Allergies No Known Allergies Allergy (Verified 02/22/21 12:43) Exam Narrative Exam Narrative: Physical Exam: Gen: Patient of apparent stated age, NAD Head and face: no facial or cranial abnormalities; +hiccups (better when eating) Neck: Supple, no meningismus, no occipital tenderness CV: + S1, S2, RRR, no murmur Resp: CTA B/L Abd: soft, nontender, nondistended Ext: No edema. No clubbing or cyanosis. No bony deformity. Neuro Exam: Language: fluency, naming, repetition, and comprehension intact; Mental Status: AAO to person and place, current events and fund of knowledge limited; confused Speech: mild dysarthria with at times hoarseness and hypophonia Cranial nerves: Funduscopy: not performed CN II: visual pulliam intact CN III, IV, : extraocular movements intact, no nystagmus, pupils symmetric and reactive to light CN V: face sensation intact to PP CN VII: no facial asymmetry noted CN VIII: hearing intact bilaterally CN IX, X: palate rises symmetrically CN XI: trapezius/SCM 5/5 bilaterally CN XII: protrudes tongue symmetrically Sensory: intact to PP in all extremities Motor: bulk and tone intact. Fine motor movements reduced on the left. Subtle Right pronator drift. Strength 5/5 throughout including the deltoids, biceps, triceps, wrist extensors, hip flexors, knee flexors, knee extensors, ankle flexors, and ankle extensors. Reflexes: hyporeflexic throughout; toes neutral bilaterally; Coordination: FTN and HTS intact bilaterally Gait: able to stand unassisted; unable to asses gait at this time Results Last Vital Signs Temp 36.5 C 02/26/21 12:01 Pulse 43 L 02/26/21 12:01 Resp 16 02/26/21 12:01 BP 163/68 H 02/26/21 12:01 Pulse Ox 95 02/26/21 12:01 Labs Result diagrams: 02/26/21 11:30 02/26/21 11:30 Labs: Laboratory Results - last 24 hr 02/25/21 02/25/21 02/25/21 19:05 19:05 19:05 WBC RBC Hgb Hct MCV MCH MCHC RDW Plt Count MPV Immature Gran % Neutrophils % Lymphocytes % Monocytes % Eosinophils % Basophils % Nucleated RBC % Absolute Neutrophils Absolute Lymphocytes Absolute Monocytes Absolute Eosinophils Absolute Basophils PT INR APTT Sodium 142 Potassium 3.6 Chloride 104 Carbon Dioxide 32.8 H Anion Gap 5.2 BUN 22 H Creatinine 1.6 H Estimated GFR/1.73 m2 42.70 Glucose 116 H Calcium 9.9 Magnesium 1.7 L Total Bilirubin 2.8 H AST 14 L ALT 25 Alkaline Phosphatase 77 Ammonia 14 Troponin I < 0.05 NT-Pro-B Natriuret Pep Total Protein 7.5 Albumin 3.4 Urine Color Urine Clarity Urine pH Ur Specific Derry Urine Protein Urine Ketones Urine Blood Urine Nitrite Urine Bilirubin Urine Urobilinogen Ur Leukocyte Esterase Urine RBC Urine WBC Ur Epithelial Cells Urine Crystals Urine Bacteria Urine Casts Urine Mucus Ur Culture Indicated? Urine Glucose COVID-19 Source SARS-CoV-2 (PCR) 02/25/21 02/25/21 02/25/21 19:05 19:05 19:05 WBC 10.14 RBC 5.28 Hgb 15.8 Hct 47.3 MCV 89.6 MCH 29.9 MCHC 33.4 RDW 12.6 Plt Count 282 MPV 9.5 Immature Gran % 0.3 Neutrophils % 68.6 Lymphocytes % 18.8 Monocytes % 8.0 Eosinophils % 3.6 Basophils % 0.7 Nucleated RBC % 0 Absolute Neutrophils 6.95 H Absolute Lymphocytes 1.91 Absolute Monocytes 0.81 H Absolute Eosinophils 0.37 Absolute Basophils 0.07 PT 11.0 INR 1.1 APTT 23.1 Sodium Potassium Chloride Carbon Dioxide Anion Gap BUN Creatinine Estimated GFR/1.73 m2 Glucose Calcium Magnesium Total Bilirubin AST ALT Alkaline Phosphatase Ammonia Troponin I NT-Pro-B Natriuret Pep 907 H Total Protein Albumin Urine Color Urine Clarity Urine pH Ur Specific Derry Urine Protein Urine Ketones Urine Blood Urine Nitrite Urine Bilirubin Urine Urobilinogen Ur Leukocyte Esterase Urine RBC Urine WBC Ur Epithelial Cells Urine Crystals Urine Bacteria Urine Casts Urine Mucus Ur Culture Indicated? Urine Glucose COVID-19 Source SARS-CoV-2 (PCR) 02/25/21 02/25/21 02/26/21 19:35 20:20 11:30 WBC RBC Hgb Hct MCV MCH MCHC RDW Plt Count MPV Immature Gran % Neutrophils % Lymphocytes % Monocytes % Eosinophils % Basophils % Nucleated RBC % Absolute Neutrophils Absolute Lymphocytes Absolute Monocytes Absolute Eosinophils Absolute Basophils PT INR APTT Sodium 142 Potassium 3.8 Chloride 105 Carbon Dioxide 31.4 Anion Gap 5.6 BUN 19 H Creatinine 1.4 H Estimated GFR/1.73 m2 49.82 Glucose 147 H Calcium 9.1 Magnesium Total Bilirubin AST ALT Alkaline Phosphatase Ammonia Troponin I NT-Pro-B Natriuret Pep Total Protein Albumin Urine Color Yellow Urine Clarity Clear Urine pH 6.5 Ur Specific Derry 1.025 Urine Protein >=300 H Urine Ketones Negative Urine Blood Negative Urine Nitrite Negative Urine Bilirubin Negative Urine Urobilinogen 0.2 Ur Leukocyte Esterase Negative Urine RBC 0-2 Urine WBC 0-2 Ur Epithelial Cells Rare Urine Crystals Negative Urine Bacteria Negative Urine Casts Negative Urine Mucus Moderate Ur Culture Indicated? No Urine Glucose Negative COVID-19 Source Nasal/Nares SARS-CoV-2 (PCR) Negative 02/26/21 11:30 WBC 9.74 RBC 4.76 Hgb 14.4 Hct 42.2 MCV 88.7 MCH 30.3 MCHC 34.1 RDW 12.4 Plt Count 209 MPV 9.4 Immature Gran % 0.4 Neutrophils % 79.7 Lymphocytes % 8.4 Monocytes % 7.3 Eosinophils % 3.5 Basophils % 0.7 Nucleated RBC % 0 Absolute Neutrophils 7.76 H Absolute Lymphocytes 0.82 L Absolute Monocytes 0.71 Absolute Eosinophils 0.34 Absolute Basophils 0.07 PT INR APTT Sodium Potassium Chloride Carbon Dioxide Anion Gap BUN Creatinine Estimated GFR/1.73 m2 Glucose Calcium Magnesium Total Bilirubin AST ALT Alkaline Phosphatase Ammonia Troponin I NT-Pro-B Natriuret Pep Total Protein Albumin Urine Color Urine Clarity Urine pH Ur Specific Derry Urine Protein Urine Ketones Urine Blood Urine Nitrite Urine Bilirubin Urine Urobilinogen Ur Leukocyte Esterase Urine RBC Urine WBC Ur Epithelial Cells Urine Crystals Urine Bacteria Urine Casts Urine Mucus Ur Culture Indicated? Urine Glucose COVID-19 Source SARS-CoV-2 (PCR)
--- NOTE | 2021-02-26 14:39 | NUR.NOTE ---
Nursing Note: 1307: pt transferred from MS 229 to ICU 221 via . All belongings including cell phone, glasses and partial plate sent along with patient clothing. report given to Kaci Galindo RN, all questions answered.
--- NOTE | 2021-02-26 16:52 | DI.VRAD_ITS ---
PROCEDURE INFORMATION: Exam: MRA Head Without Contrast; Arteriography Exam date and time: 02/26/2021 4:40 PM Age: 70 years old Clinical indication: Other: Basal ganglia hemorrhage TECHNIQUE: Imaging protocol: Magnetic resonance angiography head without contrast. Exam focused on the arteries. COMPARISON: CT HEAD WO 02/26/2021 10:56 AM FINDINGS: ANTERIOR CIRCULATION: Right internal carotid artery: Intracranial segment is patent with no significant stenosis. No aneurysm. Right middle cerebral artery: No occlusion or significant stenosis. No aneurysm. Right anterior cerebral artery: Absent right A1 segment which can be a normal variant. Left internal carotid artery: Intracranial segment is patent with no significant stenosis. No aneurysm. Left middle cerebral artery: No occlusion or significant stenosis. No aneurysm. Left anterior cerebral artery: No occlusion or significant stenosis. No aneurysm. POSTERIOR CIRCULATION: Right vertebral artery: No occlusion or significant stenosis. No aneurysm. Left vertebral artery: No occlusion or significant stenosis. No aneurysm. Basilar artery: No occlusion or significant stenosis. No aneurysm. Right posterior cerebral artery: No occlusion or significant stenosis. No aneurysm. Left posterior cerebral artery: No occlusion or significant stenosis. No aneurysm. Brain: Stable left basal ganglion hemorrhage. IMPRESSION: 1. Known left basal ganglia hemorrhage. 2. Absent right A1 segment, often a normal variant. 3. No high-grade stenosis or aneurysm in the visualized [id number]. Dictated and Authenticated by: Rolando Rubi MD. Ordering:KESHA Marshall MD
--- NOTE | 2021-02-26 16:58 | DI.VRAD_ITS ---
PROCEDURE INFORMATION: Exam: MR Head Without Contrast Exam date and time: 02/26/2021 4:40 PM Age: 70 years old Clinical indication: Other: Basal ganglia hemorrhage TECHNIQUE: Imaging protocol: MR of the head without contrast. COMPARISON: CT HEAD WO 02/26/2021 10:56 AM FINDINGS: Brain: No acute territorial infarct. Moderate diffuse involutional changes in the brain. Again noted is the T1 and T2 hyperintense focus in the basal ganglia on the left measuring 26 x 21 x 22 mm, compatible with acute intra-axial hematoma. Small amount of surrounding edema. Moderate to severe T2 and FLAIR hyperintensities in the supratentorial white matter suggest small vessel disease. Multiple old lacunar infarcts. Multiple foci of hemosiderin deposition in the brain. The expected vascular flow voids are present centrally. Cerebral ventricles: Normal. No ventriculomegaly. Bones/joints: Unremarkable. Paranasal sinuses: Limited ethmoid sinus disease. Mastoid air cells: Normal as visualized. No mastoid effusion. Orbital cavity: Unremarkable. Soft tissues: Unremarkable. IMPRESSION: Stable left basal gangliar hemorrhage. No acute territorial infarct or discrete mass. Repeat study with contrast in 6-8 weeks is recommended to exclude underlying abnormality of the brain parenchyma as the cause of the hemorrhage. Dictated and Authenticated by: Rolando Rubi MD. Ordering:KESHA Marshall MD
[2021-02-26] MEDS: Tacrolimus 0.5 MG CAP 1 MG PO (20:12)
[2021-02-26] MEDS: Atorvastatin 40 MG TAB PO (20:12)
[2021-02-27] VITALS (78 sets, daily range): BP systolic 118–209; BP diastolic 40–182; PULSE 36–204; RESP 12–28; TEMP 36.1–37.2; O2SAT 87–97
[2021-02-27] MEDS: Lactated Ringers 1,000 ML 80 ML IV (05:06)
[2021-02-27] MEDS: amLODIPine 5 MG TAB PO (09:03)
[2021-02-27] MEDS: Tamsulosin 0.4 MG CAPCR PO (09:04)
[2021-02-27] MEDS: Tacrolimus 0.5 MG CAP 2 MG PO (09:04)
[2021-02-27] MEDS: Calcitriol 0.25 MCG CAP PO (09:04)
[2021-02-27] MEDS: niCARdipine 25 MG in Normal Saline 240 ML 50 MG IV (09:07)
--- NOTE | 2021-02-27 09:07 | W.PULMCC ---
General Date of Service Date of service: 02/27/21 Time of Service: 06:50 Admit Date Admit Date: Reason for Admission to ICU: Intracranial hemorrhage Assessment and Plan Assessment and plan (1) Basal ganglia hemorrhage: Status: Acute (2) Altered mental status: Status: Acute Qualifiers: Altered mental status type: transient alteration of awareness Qualified Code(s): R40.4 - Transient alteration of awareness (3) Kidney transplant recipient: Status: Acute (4) Atrial fibrillation: Status: Acute Qualifiers: Atrial fibrillation type: unspecified Qualified Code(s): I48.91 - Unspecified atrial fibrillation (5) Diabetes mellitus, type II: Status: Chronic Qualifiers: Diabetes mellitus intermediate insulin use: unspecified intermediate insulin use status Diabetes mellitus complication status: with ophthalmic complications Diabetes mellitus complication detail: with diabetic retinopathy Diabetic retinopathy severity: with unspecified retinopathy severity Diabetes mellitus macular edema: macular edema presence unspecified Laterality: unspecified laterality Qualified Code(s): E11.319 - Type 2 diabetes mellitus with unspecified diabetic retinopathy without macular edema (6) Chronic renal insufficiency: Status: Chronic Qualifiers: Chronic kidney disease stage: unspecified stage Qualified Code(s): N18.9 - Chronic kidney disease, unspecified (7) Hypertension: Status: Chronic Qualifiers: Hypertension type: unspecified Qualified Code(s): I10 - Essential (primary) hypertension (8) Bradycardia: Status: Acute (9) Vasogenic edema: Status: Acute Assessment and plan: This is a 70-year-old gentleman with medical history of A. fib on Eliquis, hypertension and who is a kidney transplant recipient who presents with approximately 10 days of confusion found to have a relatively substantial basal ganglia hemorrhage with mild surrounding edema. Despite recommendations for tight blood pressure control overnight it appears as though he was significantly hypertensive for the duration of the night. He was reversed with Andexxa and his antiplatelet and anticoagulation is being held currently. On my assessment of the patient I found him to be completely supine so I raise the head of his bed and I also found him to be extremely hypertensive. There was question of whether this blood pressure was accurate and so I placed an arterial line which correlated properly with the cuff pressure. Requested a nicardipine drip be started on this patient. The patient is on known beta-blockers which could be a cause of his bradycardia, however in the setting of a brain bleed, bradycardia and hypertension there is always a concern for the risk of herniation. Based on his imaging I do not believe there is enough edema to cause herniation nor do I see signs of herniation on his current imaging however short-term follow-up CT scan would be indicated in this critically ill patient. Recommendations Pulmonary: No acute concerns - recommend I.S. Cardiac: Hypertension - D/C all IVF - hold metoprolol - start nicardipine gtt for a BP goal between 120-140/70-90 - can continue his home amlodipine - continue atorvastatin - arterial line placed for accurate BP monitoring - discontinue IV hydralazine while on nicardipine gtt Atrial fibrillation - as above hold metoprolol - hold ASA and Eliquis Renal: Renal transplant recipient - cotninue home tacrolimus and mycophenolate - recommend checking a tacrolimus level - strict I&O's - with tighter BP control there is a risk of decreased renal perfusion and worsening kidney function given the chronicity of his HTN. I&O: Intake & Output 02/24/21 02/25/21 02/26/21 02/27/21 23:59 23:59 23:59 23:59 Intake Total 540 / 540 2170 / 2170 865.333 / 865.333 Output Total 450 / 450 1900 / 1900 1000 / 1000 Balance 90 / 90 270 / 270 -134.667 / -134.667 Weight 98.5 kg 99.1 kg Daily Fluid Goal:: even GI Nutrition: NPO with ice chips and sips of water and meds until repeat head CT performed Date of Last Bowel Movement: 02/25/21 Infectious Disease: No acute concerns Hematologic: On anticoagulation - as above holding ASA and Eliquis - s/p Andexxa Neurologic: Left basal ganglia hemorrhage - strict BP control as above - 120-140/70-90 - titrate nicardipine to achieve this - elevation of head of bed - recommend repeat CT head wo today to assess stability of bleed - recommend Decadron 4mg daily given presence of edema - q2h neuro checks - if there is an increasing bleed or an acute change in his mental status, recommend recalling [facility] Endocrine: h/o diabetes - given Decadron check glucose levels and treat with SSI if needed Lines: PIV Art line Prophylaxis: No DVT ppx No indication for GI ppx at this time I spent a total of 70 minutes with this patient including chart review, documentation, rounding with nursing, coordination of care with hospitalist service, bedside procedures done, and patient assessment. Code Status: Resuscitation Status Full Code Subjective Critical and life-threatening events over the past 24 hours: This is a 70-year-old man with renal failure status post transplant as well as a cardiac history with PCI in January 2019 and A. fib on Eliquis who presents with a approximately a 10-day history of confusion and fatigue. In the emergency department he was found to have an acute left basal ganglia hemorrhagic stroke. He was attempted to be transferred to a tertiary care center however there were no ICU beds in any surrounding state or within [place]. On evaluation of his imaging there is some mild vasogenic edema that I can see on his imaging surrounding the bleed. He was given reversal agent for Eliquis, Andexxa and neurology was consulted who recommended holding his aspirin and apixaban with a minimum 14-day time period before restarting. They also recommended MRI/MRA to rule out other causes such as amyloid or aneurysm and to consider an EEG given his altered mental status. It was also recommended that his blood pressure be maintained below 140/90. Despite this recommendation it appears as though throughout the entire night his blood pressure was elevated. He was not started on a reducing agent overnight. Exam Narrative Exam Narrative: Upon entrance into his room the patient was laying completely flat with no elevation of the head of his bed and a systolic blood pressure on the monitor of over 200. Const General: no acute distress Nutritional Appearance: well nourished [facility] Head: normocephalic Ears: external ears normal and no periauricular adenopathy General nose exam: nasal mucous membranes and turbinates normal Face and sinus: sinuses nontender Mouth: oropharynx normal and moist mucous membranes Teeth and gingiva: dentition normal Eyes General: appearance normal, both eyes and all related structures Pupils: PERRL Neck Neck: normal visual inspection and no lymphadenopathy Chest Chest: normal inspection of the chest Resp Effort & Inspection: normal respiratory effort Auscultation: clear to auscultation bilaterally, rales on the right, no rhonchi and no wheezes Cardio Rate: regular rate Rhythm: regular rhythm Heart Sounds: S1 normal, S2 normal and no murmurs Pulses: radial pulses present bilaterally GI Inspection: normal to inspection Palpation: soft Skin General skin exam: no rashes or lesions noted Neuro General: patient alert, patient awake and patient oriented x3 Extrem General: no clubbing, cyanosis or edema Psych Mental Status: mental status grossly normal Affect: normal affect Attitude: cooperative Most Recent VS/Results Last Vital Signs Temp 36.3 C L 02/27/21 04:33 Pulse 40 L 02/27/21 05:01 Resp 14 02/27/21 06:50 BP 177/50 H 02/27/21 06:02 Pulse Ox 95 02/27/21 05:30 Laboratory Results - last 24 hr 02/26/21 02/26/21 11:30 11:30 WBC 9.74 RBC 4.76 Hgb 14.4 Hct 42.2 MCV 88.7 MCH 30.3 MCHC 34.1 RDW 12.4 Plt Count 209 MPV 9.4 Immature Gran % 0.4 Neutrophils % 79.7 Lymphocytes % 8.4 Monocytes % 7.3 Eosinophils % 3.5 Basophils % 0.7 Nucleated RBC % 0 Absolute Neutrophils 7.76 H Absolute Lymphocytes 0.82 L Absolute Monocytes 0.71 Absolute Eosinophils 0.34 Absolute Basophils 0.07 Sodium 142 Potassium 3.8 Chloride 105 Carbon Dioxide 31.4 Anion Gap 5.6 BUN 19 H Creatinine 1.4 H Estimated GFR/1.73 m2 49.82 Glucose 147 H Calcium 9.1 Review of Systems All systems reviewed & are unremarkable except as noted in HPI and below Constitutional Constitutional: Denies difficulty sleeping, Reports fatigue and Denies headache(s) ENT Ears, Nose, Mouth, and Throat: Denies headache(s) Cardiovascular Cardiovascular: Denies chest pain and Denies dyspnea Respiratory Respiratory: Denies dyspnea Neurologic Neurologic: Denies headache(s) Endocrine Endocrine: Reports fatigue
--- NOTE | 2021-02-27 09:09 | PDOC.CMPRO ---
- If Service Date Differs Date of service: 02/27/21 Time of Service: 09:09 Care Management Progress Note S/O: Cody was laying in bed when CM met with him. He was easily awakened, pleasant and engaged in conversation. He shares that he is still exhausted but is feeling better today overall. Cody lives in [place] with his and is independent at baseline. He has both a walker and cane at home and uses them as needed. 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 A: 70 year old male admitted to [facility] on 02/25/21 for Basal Ganglia Hemorrhage P: Continue to monitor, EEG needed in the next 1-2 days. Cody will likely transfer home via private transportation with when medically cleared. CM continues to follow.
[2021-02-27] MEDS: Lidocaine 1% Multi-Dose 50 ML VIAL (11:04)
[2021-02-27] MEDS: Dexamethasone 10 MG/ML VIAL IVP (11:04)
[2021-02-27 12:09] LABS: Magnesium 1.8 mg/dL (1.8-2.4)
--- NOTE | 2021-02-27 12:17 | W.PM.PROGNOT ---
Date of Service Date of service: 02/27/21 Time of Service: 12:17 Assessment and Plan Assessment and plan (1) Basal ganglia hemorrhage: Status: Acute Assessment and plan: Cont Q2H neuro checks. BP control. Now has an arterial line for better BP monitoring. Cardene drip initiated last PM. Will obtain EEG Dexamethasone 10mg IV now and then 6 mg IV Daily; recommended by [facility] d/t some cerebral edema. 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 Holding glipizide until further data on blood glucose levels known. Glucose 113 this AM (3) Stroke, embolic: Status: Acute Assessment and plan: Previous history. On ASA, Statin. Hold ASA (4) Kidney transplant recipient: Status: Acute Assessment and plan: Cont 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 therapy: mycophenolate and Tacrolimus. (5) Hypertension: Status: Acute Assessment and plan: Now on cardene drip. Monitor. (6) Cardiomyopathy due to hypertension: Status: Acute Assessment and plan: On a BB that is now being held d/t bradycardia. Stopped IV hydration. (7) Atrial fibrillation: Status: Acute Assessment and plan: Sinus bradycardia currently. Holding BB and Eliquis. Telemetry. Qualifiers: Atrial fibrillation type: unspecified Qualified Code(s): I48.91 - Unspecified atrial fibrillation (8) Chronic renal insufficiency: Status: Chronic Assessment and plan: Previous renal transplant d/t renal failure. Now with chronic insufficiency; baseline creatinine 1.3-1.4. Presented with creatinine of 1.6. Yesterday was 1.4. Monitor. Qualifiers: Chronic kidney disease stage: unspecified stage Qualified Code(s): N18.9 - Chronic kidney disease, unspecified Subjective Subjective Patient reports: no new complaints, tolerating a regular diet and afebrile; denies nausea and vomiting Interval history since last seen: No focal muscle weakness, slurred speech. No dizziness/vertigo Exam Const General: cooperative and no acute distress Orientation: awake, oriented to person and oriented to place [facility] Head: normocephalic and atraumatic Eyes General: appearance normal, both eyes and all related structures Sclera: sclerae normal Pupils: PERRL Neck Neck: full ROM Resp Effort & Inspection: normal respiratory effort Auscultation: clear to auscultation bilaterally Cardio Rate: regular rate Rhythm: regular rhythm Heart Sounds: S1 normal and S2 normal GI Palpation: soft and nontender Skin General skin exam: no rashes or lesions noted Neuro General: no focal motor deficits Cranial Nerves: no nystagmus Cognition: normal cognition Speech: speech normal Objective Last Vital Signs Temp 36.3 C L 02/27/21 11:11 Pulse 46 L 02/27/21 11:11 Resp 14 02/27/21 11:11 BP 134/41 L 02/27/21 11:11 Pulse Ox 95 02/27/21 11:11 Laboratory Results - last 24 hr 02/26/21 11:30 Magnesium 1.8
--- NOTE | 2021-02-27 13:45 | PHA.REVIEW ---
Pharmacy Admission Review - Admission Clinical Review (Last Reviewed 02/25/21 @ 17:54 by Samantha Alicea NP) Bradycardia (Acute) Vasogenic edema (Acute) Hiccups (Acute) Basal ganglia hemorrhage (Acute) Altered mental status (Acute) Type II diabetes mellitus with neurological manifestations (Acute) Stroke, embolic (Acute 05/29/14) Kidney transplant recipient (Acute 09/16/15) Hypertension (Acute) Cardiomyopathy due to hypertension (Acute 11/29/14) Atrial fibrillation (Acute 05/29/14) No Known Allergies Allergy (Verified 02/22/21 12:43) Resuscitation Status Full Code Height 5 ft 11 in Weight 99.1 kg - Renal Dosing Renal Dosing: BUN 19 mg/dL (7-18) H 02/26/21 11:30 Creatinine 1.4 mg/dL (0.70-1.30) H 02/26/21 11:30 Medications needing adjustments: Reviewed - Anticoagulation Anticoagulation: Hgb 14.4 g/dL (13.5-17.5) 02/26/21 11:30 Hct 42.2 % (40.0-50.0) 02/26/21 11:30 Plt Count 209 10^3/uL (130-400) 02/26/21 11:30 INR 1.1 (0.9-1.1) 02/25/21 19:05 Creatinine 1.4 mg/dL (0.70-1.30) H 02/26/21 11:30 DVT Prophylaxis: N/A - Opiate Usage Evaluate Pain Scale/Pains Meds: N/A - Relevant Labs Sodium 142 mmol/L (136-145) 02/26/21 11:30 Potassium 3.8 mmol/L (3.5-5.1) 02/26/21 11:30 Chloride 105 mmol/L (98-107) 02/26/21 11:30 Magnesium 1.8 mg/dL (1.8-2.4) 02/26/21 11:30 Electrolytes, C-Reactive P, ESR: Reviewed - DM Control DM Control: Glucose 147 mg/dL (74-106) H 02/26/21 11:30 Insulin Dosing: Reviewed (is on glipizide at home, on diabetic diet currently -- monitor for need for meal time SS insulin, dexamethasone started today so anticipate elevated levels in response) - Heart Failure/W[place] Heart Failure/[place]: Troponin I < 0.05 ng/mL (<0.06) 02/25/21 19:05 NT-Pro-B Natriuret Pep 907 pg/mL (<300) H 02/25/21 19:05 EF%, ANNAMARIE's, B-Blockers, Diuretics: Reviewed (amlodipine 5mg PO plus nicardipine gtt started this AM) - BP Control BP Control: Blood Pressure [Right Wrist] 118/65 Blood Pressure [Right Wrist] 134/41 Blood Pressure [Right Wrist] 135/43 Blood Pressure [Right Wrist] 137/50 Blood Pressure [Right Wrist] 135/47 Blood Pressure [Right Wrist] 183/65 Blood Pressure [Right Wrist] 183/65 Blood Pressure [Right Wrist] 120/40 Blood Pressure 183/65 Blood Pressure 209/182 Blood Pressure 177/50 Blood Pressure 159/53 Blood Pressure 120/40 Blood Pressure 153/47 Blood Pressure 147/46 If elevated: Reviewed - Qtc Review List meds needing interventions: 421 on admission - IV to PO Switch IV Medications: Reviewed - Home Meds Home Med List reviewed: Reviewed Relevent Home Meds Not ordered & why?: [facility] med list has amlodipine dose at 2.5mg but recorded as 5mg and currently taking 5mg, BP has been elevated - Current meds Current Medication Order Review: Reviewed (arterial line added for more accurate BP monitoring, BB on hold, nicardipine gtt started this am, dexmethasone added for cerebral edema -- continue to monitor vitals, blood glucose, BMP)
--- NOTE | 2021-02-27 14:24 | W.PM.OP ---
Date of service: 02/27/21 Time of Service: 07:15 Operative Note Operative Note Arterial Line Placement Date Performed: 02/27/21 Time Performed: 714 Performed by: Polina Segundo MD Indications and/or Provisional Diagnosis: Invasive hemodynamic monitoring Consent: The patient has been informed and understands the information and situation provided to them about the procedure. They have capacity and ability to weigh risks, goals and benefits as well as the alternatives of proposed treatments including the option of not undergoing the procedure. The patient has expressed their rationale and executed the choice verbally to proceed forward with the procedure with no undue influence or coercion. Type of Anesthesia/Sedation: Local anesthetic with 1% lidocaine was administered Fluids Given: See I&O Unless otherwise noted, there was no blood loss, specimens removed, cultures obtained, or drains retained. Time Out: A time-out was completed prior to procedure verifying correct patient, procedure, site, positioning, and special equipment if applicable. Procedure Technique/Description of Procedure: The patient was prepped and draped in the usual sterile fashion. An arterial line was introduced percutaneously and via the Seldinger technique into the right radial artery after 2 attempt(s). Good blood return without significant extremity blanching was noted. Good arterial wave form was noted. Blood loss was minimal. Post Procedure Diagnosis and Findings: Same as Indications and/or Provisional Diagnosis Complications: Small hematoma from initial attempt Polina Segundo MD Pulmonary & Critical Care
[2021-02-27] MEDS: niCARdipine 25 MG in Normal Saline 240 ML IV (15:15)
--- NOTE | 2021-02-27 15:48 | DI.CT_ITS ---
Exam(s) CT HEAD WO EXAM: CT HEAD WO CLINICAL HISTORY: assess stability of intracranial hemorrhage. TECHNIQUE: Imaging Protocol: Axial computed tomography images with coronal and sagittal reformatted images were created and reviewed COMPARISON: CT CT HEAD WO from 02/26/2021 FINDINGS: There are no skull fractures nor fluid in the visualized paranasal sinuses. The size of the left basal ganglia hemorrhage exhibits minimal if any significant change including th e amount of surrounding edema. Effacement of the ipsilateral left lateral ventricle is unchanged. Also again noted is abundant bilateral periventricular hypodensity consistent chronic small vessel di sease and there are multilevel lacunar infarcts also noted. Heavy calcification in the left vertebra l artery at the skull base is also noted IMPRESSION: Stable appearance of the left basal ganglia intra-axial hemorrhage, unchanged from yesterday RADIATION DOSE DELIVERED: 815.42mGy.cm Total DLP DATA REPOSITORY: All CT scans at this facility are submitted to the National Radiology Data Registry (NRDR) Dose Index Registry (DIR) with the [employer] [place] [employer] (ACR). RADIATION OPTIMIZATION: All CT scans at this facility use at least one of these dose optimization te chniques: automated exposure control; mA and/or kV adjustment per patient size (includes targeted exa ms where dose is matched to clinical indication); or iterative reconstruction.
--- NOTE | 2021-02-27 16:34 | W.PM.PROGNOT ---
Date of Service Date of service: 02/27/21 Time of Service: 16:34 Assessment and Plan Assessment and plan (1) Hiccups: Status: Acute (2) Basal ganglia hemorrhage: Status: Acute Assessment and plan: Mr. Bolden is a 70 year-old right-handed man s/p renal transplant, prior ischemic stroke, and atrial fibrillation who was admitted with: #1. Left basal ganglia hemorrhagic stroke, complicated by apixaban and aspirin use as well as chronic hypertension and presence of numerous prior microhemorrhages consistent with likely amyloid angiopathy; s/p treatment with Andexxa. Manifested by generalized weakness and confusion, ?slight right pronator drift, ?mild dysarthria. -Continue to hold aspirin and apixaban. Ok to re-start after 14 days. I strongly recommend cardiology evaluation for possible Watchman s/p discharge given he is at very increased risk for future hemorrhages. -Ideally keep BP <140/90 but goal is <160. Avoid hypotension. -PT, OT, and ST -As per radiology, recommending MRI brain w/wo in 6 weeks to look for possible underlying mass. I do not feel that this is entirely necessary and do not agree with recommendations. Further, given renal transplant, this test has risks. Bleed is common location for hypertensive bleeds and patient has known numerous microbleeds. #2. Hiccups. Chronic, intermittent, and intractable. Consider starting baclofen if these return. Could use prn. He should follow-up in the neurology clinic in 4-6 weeks. Please call with any further concerns. Subjective Subjective Interval history since last seen: Mr. Motta remained hypertensive overnight. Now with arterial line to help with BP control. BPs during day very good 130s-140s on Cardene drip. Metoprolol stopped due to bradycardia. Hiccups resolved??? -MRI brain (02/26/21): subacute left basal ganglia hemorrhage. Noted multiple old infarcts bilaterally, primarily in the centrum semiovale, both anteriorly and posteriorly. SWI with notable diffuse cortical and subcortical old microhemorrhages. This would be consistent with likely amyloid. Radiology concerned about possible left hemisphere mass underneath hemorrhage and rec'd repeat imaging in 6 weeks for further clarification. I reviewed these images personally and this is my personal interpretation. -MRA head (02/26/21): no aneurysms or significant stenosis. -CTH (02/27/21): evolving L BG hemorrhage. Stable/slightly smaller. I reviewed these images personally and this is my personal interpretation. -EEG (02/27/21): mild encephalopathy and mild left focal slowing. Exam Narrative Exam Narrative: Physical Exam: Constitutional: Patient of apparent stated age, well nourished, well developed, no acute distress Neuro: MS/Language/Speech: Alert, oriented, clear language (fluency and comprehension), no dysarthria CN: EOMI, visual pulliam full, no facial asymmetry, hearing intact Motor: Normal bulk and tone. FMM intact, no pronator drift. 5/5 strength in bilateral upper and lower extremities Coordination: Finger to nose performed without dysmetria Objective Last Vital Signs Temp 36.3 C L 02/27/21 11:11 Pulse 46 L 02/27/21 11:11 Resp 26 H 02/27/21 16:00 BP 145/56 H 02/27/21 16:05 Pulse Ox 95 02/27/21 11:11 Laboratory Results - last 24 hr 02/26/21 11:30 Magnesium 1.8
--- NOTE | 2021-02-27 16:56 | PDOC.EEG ---
Neurology EEG EEG: [facility] Department of Neurology INPATIENT EEG REPORT Date of Recordin02/27/21 Interpreting Physician: Dr. Shannan Turner Reason for study: Mr. Solorzano is a 70 year-old man admitted with a left basal ganglia hemorrhage and confusion. Current Medications: Current Medications Acetaminophen (Acetaminophen 325 Mg Tab) 650 mg PO Q4H PRN PRN Amlodipine Besylate (Amlodipine 5 Mg Tab) 5 mg PO DAILY [facility] Last Admin: 02/27/21 09:03 Dose: 5 mg Documented by: Atorvastatin Calcium (Atorvastatin 40 Mg Tab) 40 mg PO HS JUAN R Last Admin: 02/26/21 20:12 Dose: 40 mg Documented by: Calcitriol (Calcitriol 0.25 Mcg Cap) 0.25 mcg PO DAILY [facility] Last Admin: 02/27/21 09:04 Dose: 0.25 mcg Documented by: Dexamethasone (Dexamethasone 4 Mg/Ml Vial) 4 mg IVP DAILY [facility] Dimethicone/Zinc Oxide (Velasquez Protect Cream 142 Gm Tube) 0 gm TP PRN PRN Hydralazine HCl (Hydralazine 20 Mg/Ml Vial) 10 mg IVP Q4H PRN PRN PRN Reason: SBP > 160 Nicardipine HCl 25 mg/ Sodium (Chloride) 250 mls @ 0 mls/hr IV INFUSION [facility]; Protocol Last Admin: 02/27/21 15:15 Dose: 2.5 mg/hr, 25 mls/hr Documented by: IV Miscellaneous Supplies (Iv Access) 1 each IV DIRECTED [facility] Levothyroxine Sodium (Levothyroxine 137 Mcg Tab) 137 mcg PO 0600 [facility] Last Admin: 02/27/21 06:10 Dose: 137 mcg Documented by: Lidocaine HCl (Lidocaine 1% Pres-Free 2 Ml Vial) 2 ml IJ DIRECTED [facility] Last Admin: 02/27/21 11:05 Dose: 3 ml Documented by: Magnesium Hydroxide (Milk Of Magnesia 30 Ml Cup) 30 ml PO DAILY PRN PRN Pt's Own Mycophenolate Mofetil 250 Mg Cap 1 each PO BID [facility] Last Admin: 02/27/21 09:06 Dose: 1 each Documented by: Polyethylene Glycol (Polyethylene Glycol 3350 17 Gm Packet) 17 gm PO DAILY PRN PRN PRN Reason: Constipation Sodium Chloride (Normal Saline Flush 10 Ml Syr) 0 ml IVP PRN PRN Last Admin: 02/26/21 20:12 Dose: 30 ml Documented by: Tacrolimus (Tacrolimus 0.5 Mg Cap) 2 mg PO DAILY [facility] Last Admin: 02/27/21 09:04 Dose: 2 mg Documented by: Tacrolimus (Tacrolimus 0.5 Mg Cap) 1 mg PO QPM [facility] Last Admin: 02/26/21 20:12 Dose: 1 mg Documented by: Tamsulosin HCl (Tamsulosin 0.4 Mg Capcr) 0.4 mg PO DAILY [facility] Last Admin: 02/27/21 09:04 Dose: 0.4 mg Documented by: METHODS: A 21 channel digitized electroencephalogram was performed in the [facility] Med/Surg Floor or ICU. The 10/20 international system of electrode placement was used and bipolar and referential electrode montages were recorded. In addition to EEG the patient was monitored for EKG and lateral/vertical eye movements. Activation procedures of photic stimulation and hyperventilation were performed if applicable. Video was used during activation procedures and during events where applicable. The duration of the recording was 30 minutes. DESCRIPTION OF EEG: The patient was noted to be awake, drowsy, and asleep during the recording. During maximal wakefulness an 8-Hz posterior background rhythm was present which was well-modulated, symmetrical, reactive to eye opening, and of moderate voltage. With eye opening the background activity changed to a low voltage mixture of alpha, beta, and occasional theta range frequencies. Faster frequencies were present in the bilateral anterior head regions. There was a normal anterior-posterior voltage gradient. During drowsiness, there was attenuation of the posterior dominant background rhythm and vertex waves. Stage II sleep was present with symmetrical sleep spindles, K-complexes, and vertex waves. There was mild generalized, polymorphic, slowing during wakefulness with more rare focal left hemisphere slowing. Activating Procedures: Photic stimulation was performed which produced no posterior driving response. Hyperventilation was now performed. EKG: EKG revealed normal sinus rhythm. INTERPRETATION: This EEG is abnormal due to: #1. Rare focal left hemisphere slowing. #2. Mild, generalized slowing with slowing of the PDR. PRIOR EEG: none CLINICAL CORRELATION: The focal left hemisphere slowing represents an area of focal cerebral dysfunction and consistent with patients known cerebral hemorrhage. The background and generalized slowing is suggestive of a mild diffuse cerebral encephalopathy of broad differential including toxic-metabolic etiology. No definitive epileptiform activity was present. Shannan Turner MD
[2021-02-27] MEDS: Polyethylene Glycol 3350 17 GM PACKET PO (19:42)
[2021-02-27] MEDS: Atorvastatin 40 MG TAB PO (19:42)
[2021-02-27] MEDS: Tacrolimus 0.5 MG CAP 1 MG PO (19:42)
[2021-02-28] VITALS (54 sets, daily range): BP systolic 102–157; BP diastolic 39–83; PULSE 42–61; RESP 10–31; TEMP 36.1–36.3; O2SAT 79–97
[2021-02-28] MEDS: niCARdipine 25 MG in Normal Saline 240 ML IV ×2 (00:41→10:30)
[2021-02-28 06:44] LABS: Abs Immature Grans 0.07 10^3/uL (0.0-0.06); Absolute Basophil Count 0.01 10^3/uL (0.0-0.2); Absolute Lymphocyte Count 0.63 10^3/uL (1.2-3.4); Absolute Monocyte Count 0.27 10^3/uL (0.1-0.8); Absolute Neutrophil Count 13.07 10^3/uL (1.2-6.7); Basophils % 0.1; HCT 40.5 % (40.0-50.0); HGB 14.4 g/dL (13.5-17.5); Immature Grans % 0.5; Lymphocytes % 4.5; MCH 30.4 pg (27.0-33.0); MCHC 35.6 % (32.0-36.0); MCV 85.6 fL (80-95); MPV 9.4 fL (8.0-11.0); Monocytes % 1.9; Nucleated RBC 0 %; Platelet Count 234 10^3/uL (130-400); RBC 4.73 10^6/uL (4.36-5.78); RDW-SD 37.7 fL; WBC 14.05 10^3/uL (4.4-10.8)
[2021-02-28 07:04] LABS: ALT 18 U/L (16-63); AST 12 U/L (15-37); Albumin 2.8 g/dL (3.4-5.0); Alkaline Phosphatase 64 U/L (46-116); Anion Gap 9.4 mmol/L (3-11); BUN 28 mg/dL (7-18); Bilirubin, Total 2.9 mg/dL (0.2-1.0); CO2 24.6 mmol/L (21.0-32.0); CREATININE 1.3 mg/dL (0.70-1.30); Calcium 8.9 mg/dL (8.5-10.1); Chloride 104 mmol/L (98-107); Estimated GFR 54.26 (mL/min/1.73m2); Glucose 197 mg/dL (74-106); Potassium 3.6 mmol/L (3.5-5.1); Sodium 138 mmol/L (136-145); Total Protein 6.4 g/dL (6.4-8.2)
--- NOTE | 2021-02-28 08:00 | NUR.NOTE ---
Natalie Feb 27 715- Dr Arana in and discussed pts neuro status. No focal deficits, no arm drift, strong leg pushes, kaycee,rehan hand day care teacher strong. Told MD about erroneous bps d/t pts cuff being on his right wrist and pt laying with his right hand under his head.
[2021-02-28] MEDS: Dexamethasone 4 MG/ML VIAL IVP (10:17)
[2021-02-28] MEDS: amLODIPine 5 MG TAB PO (10:18)
[2021-02-28] MEDS: Tacrolimus 0.5 MG CAP 2 MG PO (10:18)
[2021-02-28] MEDS: Calcitriol 0.25 MCG CAP PO (10:18)
[2021-02-28] MEDS: Tamsulosin 0.4 MG CAPCR PO (10:19)
[2021-02-28] MEDS: Normal Saline Flush 10 ML SYR IVP (10:32)
[2021-02-28] MEDS: Insulin Aspart 300 UNITS/3 ML PEN SC ×3 (10:38→17:42)
[2021-02-28] MEDS: Senna TAB 1 TAB PO ×2 (12:30→12:45)
--- NOTE | 2021-02-28 12:55 | PT.INIE ---
PT Notes Visit Reasons: Basal Ganglia Hemorrhage Physical Therapy Inpatient Initial Evaluation Date: Referring Doctor: Rolando Lopes MD PT Orders: PT CONSULT: Eval/Treat Precautions: Fall. Standard. Activity as tolerated. Patient Profile/Admitting Diagnosis: Patient is a 69-year-old male who presented to the ED on 02/25/2021 for increasing confusion, fatigue, and hiccups. Patient is diagnosed with basal ganglia hemorrhage, type 2 diabetes mellitus, embolic stroke, hypertension, is a recent kidney transplant recipient PFSH: Medical History (Updated 02/26/21 @ 13:13 by Shannan Turner MD) Atrial fibrillation BPH (benign prostatic hyperplasia) CHF (congestive heart failure) Chronic kidney disease CVA (cerebral vascular accident) Diabetes Fistula GERD (gastroesophageal reflux disease) Hepatitis C HTN (hypertension) Hyperlipemia Hypothyroidism Myocardial infarction Obstructive sleep apnea Subsequent non-ST elevation (NSTEMI) myocardial infarction within 4 weeks of initial infarction stents Surgical History Arthroplasty of knee 2005-right BIOPSY, KIDNEY (10/16/14) [facility] [place]-RIGHT Colonoscopy - [facility] [place] 2008 H/O bladder repair surgery H/O vasectomy History of hernia repair KIDNEY TRANSPLANT (09/16/15) [facility] [place]-09/16/15 Rotator Cuff Repair left Social History/Home Situation: Lives in a private home with 4 steps to enter with with bilateral rails. Independent wih all aspects of ADLs prior to admission. Still drives. Equipment Owned/DME: None Subjective: Agreeable to PT consult. Has not had any walk since admission due to fatigue. Reported being a little unsteady but no LOB. Was okay without any walking device. Denies headache and chest pain throughout. Objective: General Observation: NAD. Supine in bed. Telemetry monitoring in place. Mental Status: Alert and oriented as to person, place, time, and purpose. Able to pay attention, focus, and respond appropriately. Pain:Denies Vital Signs: WNL as monitored via telemetry ROM: Right Upper Extremity: Shoulder Flexion WFL. Shoulder abduction WFL. Elbow flexion WFL. Wrist flexion WFL. Functional opening and closing of hand WFL. Left Upper Extremity: Shoulder Flexion WFL. Shoulder abduction WFL. Elbow flexion WFL. Wrist flexion WFL. Functional opening and closing of hand WFL. Right Lower Extremity: Hip flexion WFL. Hip abduction WFL. Knee flexion WFL. Ankle dorsiflexion WFL. Ankle plantarflexion WFL. Left Lower Extremity: Hip flexion WFL. Hip abduction WFL. Knee flexion WFL. Ankle dorsiflexion WFL. Ankle plantarflexion WFL. Strength: Right Upper Extremity: Shoulder flexors 4/5. Shoulder abductors 4/5. Elbow flexors 5/5. Elbow extensors 5/5. Medical Coding Technician strong. Left Upper Extremity: Shoulder flexors 5/5. Shoulder abductors 5/5. Elbow flexors 5/5. Elbow extensors 5/5. Medical Coding Technician strong. Right Lower Extremity: Hip flexors 4/5. Hip abductors 5/5. Knee flexors 5/5. Knee extensors 5/5. Ankle dorsiflexors 4/5. Ankle plantarflexors 4/5. Left Lower Extremity: Hip flexors 4/5. Hip abductors 5/5. Knee flexors 5/5. Knee extensors 5/5. Ankle dorsiflexors 5/5. Ankle plantarflexors 5/5. Bed Mobility/Transfers: Rolling independent Supine to sit independent Sit to supine independent Sit to stand independent Stand to sit independent Bed to reclining chair independent Reclining chair to bed independent Gait: Instructed patient with level surface ambulation of 300 feet requiring supervision assist. Gait unremarkable. Reported mild dizziness toward s the end of the walk. Mild SOB that subsided with rest. Balance: Static Sitting: Normal Dynamic Sitting: Normal Static Standing: Normal Dynamic Standing: Good Special Tests: Mobility Limitations Standardized Measure [facility] 6 clicks Basic Mobility Inpatient Short Form: Raw Score: 24 CMS Score: 0% deficit Informed Consent/Education: Patient was instructed in purpose of PT consult and plan of care. Agreeable to proceed with established PT POC to achieve personal goals. Assessment: Reported mild dizziness toward the end of the walk but otherwise did generally well with vital signs WNL during and after ambulation activity. No assistive device needed. Will only require one more treatment session for education with home exercises before anticipated discharge this afternoon. Patient is assessed as a [id number] low complexity based on the following: History: 70-year-old male with past medical history as indicated above Examination: Demonstrable impairment in strength, balance, and mobility level with underlying impairments and functional limitations as exhibited above as well as deficit score of 0% utilizing the [facility] Mobility Inpatient Short Form Presentation: Stable Decision Makin low complexity Goals: N/A. PT evaluation and one treatment session only for home exercise prescription. Plan of Care/Treatment Plan: N/A. PT evaluation and one treatment session only for home exercise prescription. DISCHARGE RECOMMENDATIONS: Home when medically cleared by hospitalist. No assistive device needed. TREATMENT CODE/TIME: 86857 20 minutes, 64368 x 10 minutes beginning at 10:20 AM. Session 2 -- 91625 x 15 minutes beginning at 12:55 PM. Thank you for the opportunity to participate in the care of this patient. Marva Ojeda PT, DPT, CLT [facility] [place], [place]
[2021-02-28 13:00] LABS: Tacrolimus 12.9 ng/mL (See Note)
--- NOTE | 2021-02-28 13:40 | W.PM.PROGNOT ---
Date of Service Date of service: 02/28/21 Time of Service: 13:40 Subjective Subjective Patient reports: no new complaints and afebrile; denies nausea, vomiting and shortness of breath Objective Last Vital Signs Temp 36.1 C L 02/28/21 08:00 Pulse 46 L 02/28/21 09:01 Resp 21 02/28/21 10:00 BP 132/54 L 02/28/21 09:01 Pulse Ox 97 02/28/21 05:18 Laboratory Results - last 24 hr 02/28/21 02/28/21 06:15 06:15 WBC 14.05 H RBC 4.73 Hgb 14.4 Hct 40.5 MCV 85.6 MCH 30.4 MCHC 35.6 RDW 12.0 Plt Count 234 MPV 9.4 Immature Gran % 0.5 Neutrophils % 93.0 Lymphocytes % 4.5 Monocytes % 1.9 Eosinophils % 0.0 Basophils % 0.1 Nucleated RBC % 0 Absolute Neutrophils 13.07 H Absolute Lymphocytes 0.63 L Absolute Monocytes 0.27 Absolute Eosinophils 0.00 Absolute Basophils 0.01 Sodium 138 Potassium 3.6 Chloride 104 Carbon Dioxide 24.6 Anion Gap 9.4 BUN 28 H D Creatinine 1.3 Estimated GFR/1.73 m2 54.26 Glucose 197 H Calcium 8.9 Total Bilirubin 2.9 H AST 12 L ALT 18 Alkaline Phosphatase 64 Total Protein 6.4 Albumin 2.8 L
--- NOTE | 2021-02-28 13:51 | W.PM.PROGNOT ---
Date of Service Date of service: 02/28/21 Time of Service: 13:52 Assessment and Plan Assessment and plan (1) Basal ganglia hemorrhage: Status: Acute Assessment and plan: MRI shows numberous prior microhemorrhages consistent with amyloid angiopathy. Neurology and Crititcal Care following patient. Now on cardene drip with good BP control. Also on amlodapine Will initiate hydralazine and d/c cardene drip. Adjust hydralazine to keep BP <160. ASA and Apixiban can be restarted after 14 days from admission date; per neurology. Will schedule cardiology appt with his [facility] superintendent general Dr Brown to be evaluated for Watchman device. MRI brain w/wo in 6 weeks; r/o underlying mass. 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 Holding glipizide until further data on blood glucose levels known. SS insulin. Glucose 113 this AM (3) Stroke, embolic: Status: Acute Assessment and plan: Previous history. On ASA, Statin. Hold ASA (4) Kidney transplant recipient: Status: Acute Assessment and plan: Cont 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 therapy: mycophenolate and Tacrolimus. (5) Hypertension: Status: Acute Assessment and plan: Now on cardene drip. Changing to po hydralazine and continue amlodapine. Monitor. (6) Cardiomyopathy due to hypertension: Status: Acute Assessment and plan: On a BB that is now being held d/t bradycardia. Stopped IV hydration. (7) Atrial fibrillation: Status: Acute Assessment and plan: Sinus bradycardia currently. Had a short run of afib. Holding BB and Eliquis. Telemetry. Qualifiers: Atrial fibrillation type: unspecified Qualified Code(s): I48.91 - Unspecified atrial fibrillation (8) Chronic renal insufficiency: Status: Chronic Assessment and plan: Previous renal transplant d/t renal failure. Now with chronic insufficiency; baseline creatinine 1.3-1.4. Presented with creatinine of 1.6. Yesterday was 1.3 Monitor. Qualifiers: Chronic kidney disease stage: unspecified stage Qualified Code(s): N18.9 - Chronic kidney disease, unspecified Subjective Subjective Patient reports: no new complaints, feels better and tolerating a regular diet; denies nausea, vomiting and shortness of breath Interval history since last seen: He states he feels at baseline regarding his level of alertness and cognition. No CP or palpitations. Exam Const General: cooperative and no acute distress Nutritional Appearance: obese Orientation: alert and oriented x3 HENMT Head: normocephalic and atraumatic Eyes Sclera: sclerae normal Pupils: PERRL Resp Effort & Inspection: normal respiratory effort Auscultation: clear to auscultation bilaterally Cardio Rate: regular rate Rhythm: regular rhythm Heart Sounds: S1 normal and S2 normal GI Palpation: soft and nontender Skin General skin exam: no rashes or lesions noted Extrem General: no pedal edema and no calf tenderness Psych Appearance: grossly normal Mental Status: mental status grossly normal Speech and Movement: speech and movement normal Mood: congruent mood Affect: normal affect Objective Last Vital Signs Temp 36.1 C L 02/28/21 08:00 Pulse 46 L 02/28/21 09:01 Resp 21 02/28/21 10:00 BP 132/54 L 02/28/21 09:01 Pulse Ox 97 02/28/21 05:18 Laboratory Results - last 24 hr 02/28/21 02/28/21 06:15 06:15 WBC 14.05 H RBC 4.73 Hgb 14.4 Hct 40.5 MCV 85.6 MCH 30.4 MCHC 35.6 RDW 12.0 Plt Count 234 MPV 9.4 Immature Gran % 0.5 Neutrophils % 93.0 Lymphocytes % 4.5 Monocytes % 1.9 Eosinophils % 0.0 Basophils % 0.1 Nucleated RBC % 0 Absolute Neutrophils 13.07 H Absolute Lymphocytes 0.63 L Absolute Monocytes 0.27 Absolute Eosinophils 0.00 Absolute Basophils 0.01 Sodium 138 Potassium 3.6 Chloride 104 Carbon Dioxide 24.6 Anion Gap 9.4 BUN 28 H D Creatinine 1.3 Estimated GFR/1.73 m2 54.26 Glucose 197 H Calcium 8.9 Total Bilirubin 2.9 H AST 12 L ALT 18 Alkaline Phosphatase 64 Total Protein 6.4 Albumin 2.8 L
--- NOTE | 2021-02-28 14:05 | W.INDIABCONS ---
Date of service: 02/28/21 Time of Service: 14:05 Diabetes Inpatient Consult DESCRIPTION/ASSESSMENT: 70 year old male admitted with basal ganglia hemorrhage, AMS with hx of DM2, Kidney transplant 5 years ago with mild obesity. Most recent A1C: 6.6% indicating well controlled DM2 on home meds(glipizide 10 mg qd). Will offer DM education when d/c from ICU. Following CHO/2 g sodium diet and meeting all macro and micro nutrient needs at this time. PLAN: Continue current meal plan. Will continue to follow wt, po intake, labs Time Spent in Nutritional Counseling and Treatment: 0
[2021-02-28] MEDS: hydrALAZINE 25 MG TAB 50 MG PO ×2 (14:24→20:06)
[2021-02-28] MEDS: Polyethylene Glycol 3350 17 GM PACKET PO (14:29)
--- NOTE | 2021-02-28 15:49 | CMPROGNOTE_ITS ---
- If Service Date Differs Date of service: 02/28/21 Time of Service: 15:49 Care Management Progress Note S/O: Cody was laying in bed when CM met with him. He was asleep and CM gently woke him up. Cody was polite but did not engage with CM, citing fatigue. CM explained the purpose of the visit and left a business card . CM will visit again tomorrow and will discuss potential discharge needs and concerns with Cody. A: 70 year old male admitted to [facility] on 02/25/21 for Basal Ganglia Hemorrhage P: Cody will likely be discharged home, possibly with new services. He will follow up with his community providers and specialists and transport with family. CM will continue to support Yash and assess for discharge planning needs.
[2021-02-28] MEDS: Tacrolimus 0.5 MG CAP 1 MG PO (20:07)
[2021-02-28] MEDS: Atorvastatin 40 MG TAB PO (21:40)
[2021-03-01] VITALS (18 sets, daily range): BP systolic 132–154; BP diastolic 47–64; PULSE 43–57; RESP 18–28; TEMP 36.2–36.6; O2SAT 92–96
[2021-03-01] MEDS: hydrALAZINE 25 MG TAB 50 MG PO ×3 (01:47→13:43)
[2021-03-01] MEDS: Tacrolimus 0.5 MG CAP 2 MG PO (07:42)
[2021-03-01] MEDS: Calcitriol 0.25 MCG CAP PO (07:42)
[2021-03-01] MEDS: Tamsulosin 0.4 MG CAPCR PO (07:42)
[2021-03-01] MEDS: amLODIPine 5 MG TAB PO (07:43)
[2021-03-01] MEDS: Polyethylene Glycol 3350 17 GM PACKET PO (07:46)
--- NOTE | 2021-03-01 08:03 | W.PULMCC ---
General Date of Service Date of service: 03/01/21 Time of Service: 07:00 Reason for Admission to ICU: Intracranial Hemorrhage Assessment and Plan Assessment and plan (1) Basal ganglia hemorrhage: Status: Acute (2) Altered mental status: Status: Acute Qualifiers: Altered mental status type: transient alteration of awareness Qualified Code(s): R40.4 - Transient alteration of awareness (3) Kidney transplant recipient: Status: Acute (4) Atrial fibrillation: Status: Acute Qualifiers: Atrial fibrillation type: unspecified Qualified Code(s): I48.91 - Unspecified atrial fibrillation (5) Diabetes mellitus, type II: Status: Chronic Qualifiers: Diabetes mellitus complication detail: with diabetic retinopathy Diabetes mellitus complication status: with ophthalmic complications Diabetes mellitus moth exterminator insulin use: unspecified half-way insulin use status Diabetes mellitus macular edema: macular edema presence unspecified Diabetic retinopathy severity: with unspecified retinopathy severity Laterality: unspecified laterality Qualified Code(s): E11.319 - Type 2 diabetes mellitus with unspecified diabetic retinopathy without macular edema (6) Chronic renal insufficiency: Status: Chronic Qualifiers: Chronic kidney disease stage: unspecified stage Qualified Code(s): N18.9 - Chronic kidney disease, unspecified (7) Hypertension: Status: Chronic Qualifiers: Hypertension type: unspecified Qualified Code(s): I10 - Essential (primary) hypertension (8) Bradycardia: Status: Acute (9) Vasogenic edema: Status: Acute Assessment and plan: This is a 70-year-old gentleman with medical history of A. fib on Eliquis, hypertension and who is a kidney transplant recipient who presents with approximately 10 days of confusion found to have a relatively substantial basal ganglia hemorrhage with mild surrounding edema. He was reversed with Andexxa and his antiplatelet and anticoagulation are being held currently. There was question of whether this blood pressure was accurate and so I placed an arterial line which correlated properly with the cuff pressure. He was placed on a nicardipine gtt for tight BP control and has since been able to come off of it. He is on hydralazine 50 q6hr and amlodipine. His metoprolol is still being held given persistent bradycardia. I started him on dexamethasone for vasogenic edema and some midline shift. He has improved remarkably well. Recommendations Pulmonary: No acute concerns - recommend I.S. Cardiac: Hypertension - hold metoprolol - can liberalize BP goal to SBP 160 - would increase amlodipine to 10mg - continue atorvastatin - can remove arterial line and use cuff pressures - continue hydralazine 50mg q6hr - can condier started isosorbide if BP not well controlled - would have him consult with his transplant manager presentation regarding starting an ACEI Atrial fibrillation - as above hold metoprolol - hold ASA and Eliquis - his indication for Eliquis is only A.fib so an extended hold will not be critical - cardiology consultation for future placement of a Watchman Renal: Renal transplant recipient - cotninue home tacrolimus and mycophenolate - tacro level is ok I&O: Intake & Output 02/26/21 02/27/21 02/28/21 03/01/21 23:59 23:59 23:59 23:59 Intake Total 2170 / 2170 2944.333 / 2944.333 1952.916 / 1952.916 Output Total 1900 / 1900 1525 / 1525 1200 / 1200 350 / 350 Balance 270 / 270 1419.333 / 1419.333 752.916 / 752.916 -350 / -350 Weight 99.1 kg 99.4 kg Daily Fluid Goal:: even GI Nutrition: Constipation - ok for diet - has not responded to senna/Miralax - consider lactulose or an enema Date of Last Bowel Movement: 02/25/21 Infectious Disease: No acute concerns Hematologic: On anticoagulation - as above holding ASA and Eliquis - s/p Andexxa Neurologic: Left basal ganglia hemorrhage - BP goal SBP <160 as above - off nicardipine - elevation of head of bed - can stop Decadron - q2h neuro checks - EEG shows no evidence of seizure - outpatient neurology follow up Endocrine: h/o diabetes - given Decadron check glucose levels and treat with SSI if needed - hopefully will improve after stopping Decadron Lines: PIV Art line - to be removed Prophylaxis: SCD's for DVT No need for GI ppx The patient no longer has any critical care needs and would be safe for transfer to [facility]. Spent a total of 35 minutes with this patient today including bedside assessment, coordination of care with the hospitalist service, rounding with nursing staff, chart review and documentation. Code Status: Resuscitation Status Full Code Subjective Critical and life-threatening events over the past 24 hours: Cody is doing well today. Denies any headache. He does not believe he is having any symptoms currently aside from feeling constipated. Exam Const General: no acute distress Nutritional Appearance: well nourished HENIA Head: normocephalic Ears: external ears normal General nose exam: nasal mucous membranes and turbinates normal Face and sinus: sinuses nontender Mouth: oropharynx normal and moist mucous membranes Teeth and gingiva: dentition normal Eyes General: appearance normal, both eyes and all related structures Pupils: PERRL Neck Neck: normal visual inspection and no lymphadenopathy Chest Chest: normal inspection of the chest Resp Effort & Inspection: normal respiratory effort Auscultation: clear to auscultation bilaterally, no rales, no rhonchi and no wheezes Cardio Rate: regular rate Rhythm: regular rhythm Heart Sounds: S1 normal, S2 normal and no murmurs Pulses: radial pulses present bilaterally GI Inspection: normal to inspection Palpation: soft Auscultation: normoactive bowel sounds Skin General skin exam: no rashes or lesions noted Neuro General: patient alert, patient awake and patient oriented x3 Extrem General: no clubbing, cyanosis or edema Psych Mental Status: mental status grossly normal Affect: normal affect Attitude: cooperative Most Recent VS/Results Last Vital Signs Temp 36.2 C L 03/01/21 03:40 Pulse 46 L 03/01/21 07:35 Resp 22 03/01/21 07:35 BP 148/57 H 03/01/21 07:35 Pulse Ox 92 03/01/21 07:35 Laboratory Results - last 24 hr 02/26/21 11:30 Tacrolimus 12.9 Review of Systems All systems reviewed & are unremarkable except as noted in HPI and below Constitutional Constitutional: Denies difficulty sleeping, Denies fatigue and Denies headache(s) ENT Ears, Nose, Mouth, and Throat: Denies headache(s) Cardiovascular Cardiovascular: Denies chest pain and Denies dyspnea Respiratory Respiratory: Denies dyspnea Gastrointestinal Gastrointestinal: Reports constipation Neurologic Neurologic: Denies headache(s) Endocrine Endocrine: Denies fatigue
[2021-03-01] MEDS: Dexamethasone 4 MG/ML VIAL IVP (08:13)
[2021-03-01] MEDS: Insulin Aspart 300 UNITS/3 ML PEN SC ×2 (08:22→12:03)
--- NOTE | 2021-03-01 08:40 | CMPROGNOTE_ITS ---
- If Service Date Differs Date of service: 03/01/21 Time of Service: 08:40 Care Management Progress Note S/O: Cody was laying in bed when CM met with him. A: 70 year old male admitted to [facility] on 02/25/21 for Basal Ganglia Hemorrhage P: Cody will likely be discharged home, possibly with new services. He will follow up with his community providers and specialists and transport with family. CM will continue to support Yash and assess for discharge planning needs.
--- NOTE | 2021-03-01 13:20 | W.PM.DS.N ---
Date of service: 03/01/21 Time of Service: 13:20 DS: Diagnosis Discharge Diagnosis (1) Basal ganglia hemorrhage: Status: Acute (2) Altered mental status: Status: Acute (3) Kidney transplant recipient: Status: Acute (4) Atrial fibrillation: Status: Acute (5) Diabetes mellitus, type II: Status: Chronic (6) Chronic renal insufficiency: Status: Chronic (7) Hypertension: Status: Chronic (8) Bradycardia: Status: Acute (9) Vasogenic edema: Status: Acute Discharge Plan Disposition Patient Disposition: HOME Condition: Fair Discharge Details Reason For Visit: Basal Ganglia Hemorrhage Admit Date/Time: 02/25/21 23:20 Admit Provider: Rolando Lopes Attending Provider: Rolando Lopes Primary Care Provider: Urbano [facility] Course Hospital Course: Follow up with PCP in 1-2 weeks. Home Meds and New Rx's Prescriptions: New polyethylene glycol 3350 17 gram Powder In Packet 17 g PO DAILY PRN PRN (Reason: Constipation) Qty: 0 RF: 0 calcitriol 0.25 mcg Capsule 0.25 mcg PO DAILY Qty: 0 RF: 0 amlodipine 10 mg tablet 10 mg PO HS Qty: 30 RF: 0 hydralazine 100 mg tablet 100 mg PO BID Qty: 60 RF: 0 Continued atorvastatin 40 mg tablet 40 mg PO QHS RF: 0 metoprolol succinate 25 mg capsule,sprinkle,ER 24hr 25 mg PO DAILY RF: 0 nitroglycerin 0.4 mg tablet, sublingual 0.4 mg SL Q5M PRNRF: 0 omeprazole 20 mg capsule,delayed release(DR/EC) 20 mg PO DAILY PRN (Reason: GERD) Qty: 90 RF: 3 sildenafil [Viagra] 100 mg tablet 100 mg PO as directed MDD 100 mg Qty: 10 RF: 6 glipizide 10 mg tablet extended release 24hr 10 mg PO BID Qty: 180 RF: 3 mycophenolate mofetil [CellCept] 250 MG capsule 250 mg PO BID RF: 0 tacrolimus [Prograf] 1 MG capsule 3 mg PO DIRECTED RF: 0 ascorbic acid (vitamin C) [Vitamin C] 500 MG capsule, extended release 500 mg PO TID RF: 0 Centrum Silver 0.4-300-250 mg-mcg-mcg tablet 2 tab PO DAILY RF: 0 levothyroxine 137 mcg tablet 137 mcg PO DAILY Qty: 90 RF: 3 tamsulosin 0.4 mg capsule 0.4 mg PO DAILY Qty: 90 RF: 3 magnesium gluconate 500 mg tablet See Rx Instructions PO .COMPLEX RF: 0 Discontinued apixaban 5 mg tablet 5 mg PO BID RF: 0 aspirin 81 mg tablet,delayed release (DR/EC) 81 mg PO DAILY RF: 0 amlodipine 5 mg tablet 2.5 mg PO HS RF: 0 calcitriol 0.5 mcg capsule 0.5 mcg PO DAILY RF: 0 No Action (DME) blood sugar diagnostic Strip 1 ea Miscellaneous BID Qty: 180 RF: 3 (DME) OneTouch Ultra Blue Test Strip Strip See Rx Instructions .ROUTE .MEDSUPPLY Qty: 180 RF: 4 (DME) blood-glucose meter 1 EACH misc 1 ea Miscellaneous DAILY Qty: 1 RF: 1 (DME) lancets 1 EACH misc 1 ea Miscellaneous DAILY Qty: 100 RF: 4 Discharge Instructions Instructions: Intracerebral Hemorrhage (GEN) Referrals: CARDIOLOGY,[facility] [OTHER] - (Arrange appt with Dr. Brown) Activity:: Activity as Tolerated Equipment/Supplies:: No Equipment Needed Diet:: Heart Healthy Discharge Orders Discharge Orders: Discharge Order (Routine); Ordered 03/01/21 Ordered By: Rolando Lopes DS: Summary Time Spent with Patient providing and/or coordinating discharge services: Greater than 30 minutes Status at Discharge Functional status at discharge: independent ambulation Overall status at discharge: patient is back to baseline Mental Status: mental status grossly normal Speech and Movement: speech and movement normal Mood: congruent mood Affect: normal affect Exam Const General: cooperative and no acute distress Nutritional Appearance: obese Orientation: alert, awake, oriented x3, oriented to person and oriented to place [facility] Head: normocephalic and atraumatic Eyes General: appearance normal, both eyes and all related structures Sclera: sclerae normal Pupils: PERRL Neck Neck: full ROM Resp Effort & Inspection: normal respiratory effort Auscultation: clear to auscultation bilaterally Cardio Rate: regular rate Rhythm: regular rhythm Heart Sounds: S1 normal and S2 normal GI Palpation: soft and nontender Skin General skin exam: no rashes or lesions noted Neuro General: no focal motor deficits Cranial Nerves: no nystagmus Cognition: normal cognition Speech: speech normal Extrem General: no pedal edema and no calf tenderness Psych Appearance: grossly normal Mental Status: mental status grossly normal Speech and Movement: speech and movement normal Mood: congruent mood Affect: normal affect DS: Data Vitals/I&O Vitals and I&O: Vital Signs Temperature 36.6 C 03/01/21 08:00 Temperature Source Temporal Artery Scan 03/01/21 08:00 Pulse 47 L 03/01/21 13:10 Pulse Rhythm Irregular 02/26/21 07:30 Pulse Strength Normal 02/25/21 20:15 Pulse 50 L 03/01/21 13:10 Respiratory Rate 21 03/01/21 10:45 Respiratory Effort 03/01/21 08:00 Respiratory Depth Normal 03/01/21 08:00 Respiratory Pattern Normal 03/01/21 08:00 Blood Pressure 144/53 H 03/01/21 13:10 Blood Pressure Mean 77 03/01/21 13:10 Blood Pressure Position Right Lateral 03/01/21 08:41 Pulse Oximetry 96 03/01/21 13:10 Oxygen Delivery Method Room Air 03/01/21 08:00 Oxygen Flow Rate 0 03/01/21 08:00 Pain Level 0 03/01/21 08:00 Comment 02/26/21 10:19 Intake & Output 02/28/21 03/01/21 03/01/21 23:59 11:59 23:59 Intake Total 1254.583 / 1952.916 Output Total 850 / 1200 350 / 350 Balance 404.583 / 752.916 -350 / -350 Weight 99.4 kg Intake: IV 174.583 / 632.916 Oral 1080 / 1320 Output: Urine 850 / 1200 350 / 350 Other: Urine Color Yellow Yellow Urine Appearance Clear Clear Urine Odor None None Voiding Methods Urinal Urinal Data Completed and Pending Labs on day of discharge: Labs from last 24 hours 02/26/21 11:30 Tacrolimus 12.9 PFSH Medical History Atrial fibrillation BPH (benign prostatic hyperplasia) CHF (congestive heart failure) Chronic kidney disease CVA (cerebral vascular accident) Diabetes Fistula GERD (gastroesophageal reflux disease) Hepatitis C HTN (hypertension) Hyperlipemia Hypothyroidism Myocardial infarction Obstructive sleep apnea Subsequent non-ST elevation (NSTEMI) myocardial infarction within 4 weeks of initial infarction stents Surgical History Arthroplasty of knee 2006-right BIOPSY, KIDNEY (10/16/14) [facility]-RIGHT Colonoscopy - MAC 2009 H/O bladder repair surgery H/O vasectomy History of hernia repair KIDNEY TRANSPLANT (09/16/15) [facility]-09/16/15 Rotator Cuff Repair left Family History Mother Essential hypertension Father Myocardial infarction Stroke Brother Essential hypertension Neoplasm Social History Smoking/Tobacco Use Status: Former Tobacco Use Smoking risk assessment performed?: Yes Alcohol Intake: current Alcohol Intake frequency: holidays/special occasions only Drug use: Occasionally Substance use type: marijuana Household members: spouse Housing: house Number of Children: 1 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 Do you feel safe at home: Yes Do you feel safe in your relationship?: Yes
--- NOTE | 2021-03-01 15:18 | PDOC.CMDIS ---
- If Service Date Differs Date of service: 03/01/21 Time of Service: 15:18 LACE Index Scoring Tool - Questions: Length of Stay (in days): 4 - 6 Acuity (Admit via E.D.?): Yes Comorbidities: Previous M.I., Cerebrovascular Disease, Diabetes w/o Complication, Congestive Heart Failure, Liver or Renal Disease E.D. Visits: 1 - Answers: Total Score: 13 Risk of Readmission: High Risk Care Management Discharge Reason for Hospitalization: Basal Ganglia Hemorrhage Discharge Plan: Cody will be discharged home with no new services. He will follow up with his community providers and specialists and transport with family. Patient/Family Education Needs: Review discharge instructions and plan to follow up with out patient providers, ask me three.
== END 2021-03-01 16:15 | disposition home or self-care (01) | DRG 545 ==
LOC: ER 02-26 00:48 → MS 02-26 03:33 → ICU 02-26 16:23
PROVIDERS: Physician Assistant; Admitting Provider Family Medicine; Emergency Provider Student in an Organized Health Care Education/Training Program; PCP Emergency Medicine; Visit Provider Family Medicine
DX: E85.4 Organ-limited amyloidosis (principal); G93.6 Cerebral edema; I61.8 Other nontraumatic intracerebral hemorrhage; Z94.0 Kidney transplant status; I43 Cardiomyopathy in diseases classified elsewhere; I13.0 Hypertensive heart and chronic kidney disease with heart failure and stage 1 through stage 4 chronic kidney disease, or unspecified chronic kidney disease; I48.91 Unspecified atrial fibrillation; E11.319 Type 2 diabetes mellitus with unspecified diabetic retinopathy without macular edema; N18.9 Chronic kidney disease, unspecified; E11.22 Type 2 diabetes mellitus with diabetic chronic kidney disease; E11.40 Type 2 diabetes mellitus with diabetic neuropathy, unspecified; R00.1 Bradycardia, unspecified; I25.2 Old myocardial infarction; E78.5 Hyperlipidemia, unspecified; I50.9 Heart failure, unspecified; Z86.73 Personal history of transient ischemic attack (TIA), and cerebral infarction without residual deficits; B19.20 Unspecified viral hepatitis C without hepatic coma; R06.6 Hiccough; N40.0 Benign prostatic hyperplasia without lower urinary tract symptoms; K21.9 Gastro-esophageal reflux disease without esophagitis; G47.33 Obstructive sleep apnea (adult) (pediatric); Z20.822 Contact with and (suspected) exposure to COVID-19; Z79.01 Long term (current) use of anticoagulants; I68.0 Cerebral amyloid angiopathy; R40.4 Transient alteration of awareness; R53.1 Weakness
CPT/HCPCS: 36620; 36415; 36416; 70544; 71250; 80048; 80053; 82962; 87635; 93005; 95819; 96361; 96365; 96366; 97162; 97530; 99223; 99233; 99291; 70450; 70551; 74176; 80197; 81003; 81015; 82140; 83735; 83880; 84484; 85025; 85610; 85730; 93010; 99239; J1100; J3490

== ENCOUNTER → 2021-02-26 11:02 | Outpatient (BNVA) | payer MEDICARE, SELFPAY | PROVIDERS: PCP Emergency Medicine; Referring Provider Emergency Medicine; Visit Provider Psychiatry & Neurology Neurology | DX: R69 Illness, unspecified (principal) ==

== ENCOUNTER 2021-04-23 14:05 | Outpatient (REF) | payer MEDICARE, SELFPAY ==
[2021-04-23 18:25] LABS: Anion Gap 7.5 mmol/L (3-11); BUN 20 mg/dL (7-18); CO2 28.5 mmol/L (21.0-32.0); CREATININE 1.5 mg/dL (0.70-1.30); Calcium 9.4 mg/dL (8.5-10.1); Chloride 108 mmol/L (98-107); Glucose 139 mg/dL (74-106); Potassium 3.7 mmol/L (3.5-5.1); Sodium 144 mmol/L (136-145)
[2021-04-24 17:43] LABS: PSA, Screening 2.2 ng/mL (0.0-6.5)
== END 2021-04-23 14:06 | disposition home or self-care (01) ==
LOC: LBN 14:05
PROVIDERS: PCP Emergency Medicine; Visit Provider Emergency Medicine
DX: I10 Essential (primary) hypertension (principal); N40.0 Benign prostatic hyperplasia without lower urinary tract symptoms; Z12.5 Encounter for screening for malignant neoplasm of prostate
CPT/HCPCS: 80048; 84153

== ENCOUNTER → 2021-04-24 08:44 | Outpatient (BNVA) | payer MEDICARE, SELFPAY | PROVIDERS: PCP Emergency Medicine; Referring Provider Emergency Medicine; Visit Provider Psychiatry & Neurology Neurology | DX: I61.0 Nontraumatic intracerebral hemorrhage in hemisphere, subcortical (principal); R06.6 Hiccough; I63.9 Cerebral infarction, unspecified; R25.1 Tremor, unspecified; Z94.0 Kidney transplant status; I10 Essential (primary) hypertension | CPT/HCPCS: 99215 ==

== ENCOUNTER 2021-09-10 04:13 | Outpatient (CLI) | payer MEDICARE, SELFPAY ==
[2021-09-10 11:38] LABS: HCT 45.6 % (40.0-50.0); HGB 15.5 g/dL (13.5-17.5); MCH 30.3 pg (27.0-33.0); MCV 89.2 fL (80-95); MPV 9.3 fL (8.0-11.0); Platelet Count 234 10^3/uL (130-400); RBC 5.11 10^6/uL (4.36-5.78); RDW 12.7 % (11.8-14.1); RDW-SD 41.5 fL; Reticulocyte 2.1 % (0.5-2.4); WBC 7.52 10^3/uL (4.4-10.8)
[2021-09-10 11:48] LABS: Hemoglobin A1C 6.7 % (<5.7)
[2021-09-10 11:56] LABS: Ammonia 28 umol/L (11-32)
[2021-09-10 12:53] LABS: ALT 37 U/L (16-63); AST 24 U/L (15-37); Albumin 3.6 g/dL (3.4-5.0); Alkaline Phosphatase 77 U/L (46-116); Anion Gap 9.1 mmol/L (3-11); BUN 16 mg/dL (7-18); Bilirubin, Total 3.1 mg/dL (0.2-1.0); CO2 29.9 mmol/L (21.0-32.0); CREATININE 1.4 mg/dL (0.70-1.30); Calcium 9.3 mg/dL (8.5-10.1); Chloride 104 mmol/L (98-107); Estimated GFR 49.68 (mL/min/1.73m2); Glucose 135 mg/dL (74-106); Magnesium 1.6 mg/dL (1.8-2.4); PHOSPHORUS 2.8 mg/dL (2.6-4.7); Potassium 3.4 mmol/L (3.5-5.1); Sodium 143 mmol/L (136-145); Total Protein 7.2 g/dL (6.4-8.2); Uric Acid 6.2 mg/dL (3.5-7.2)
[2021-09-10 13:08] LABS: Calculated LDL 17 mg/dL (<100); Cholesterol 97 mg/dL (<200); HDL Cholesterol 45 mg/dL (40-60); Triglyceride 178 mg/dL (<150)
[2021-09-10 13:13] LABS: Bilirubin Negative (Negative); Blood Negative (Negative); Clarity Clear (Clear); Glucose Negative (Negative); Ketones Negative (Negative); Leukocyte Esterase Negative (Negative); Nitrite Negative (Negative); Urobilinogen 0.2 EU/dL (Up TO 0.2); pH 7.5 (5-8)
[2021-09-10 13:29] LABS: Bacteria Rare HPF (Negative); C & S Indicated? No; Casts Negative LPF (Negative); Crystals Negative HPF (Negative); Epithelial Cells Rare HPF (Negative); Mucus Moderate (Negative); RBC 0-2 HPF (0-2); WBC 0-2 HPF (0-5)
[2021-09-10 14:33] LABS: COMMENT (LAB VIEW ONLY) 55.13 mg/dL; Creatinine,Urine 54.54 mg/dL; PROTEIN 61.7 mg/dL; Prot/Crea Ur Ratio 1.11
[2021-09-12 04:51] LABS: Vitamin D 25 Total 26.8 ng/mL (30-100)
[2021-09-12 08:49] LABS: Magnesium Random Urine 4.7 mg/dL (See Note); Phosphorus Urine 22.7 mg/dL (See Note)
[2021-09-12 14:04] LABS: Tacrolimus 12.1 ng/mL (See Note)
[2021-09-12 20:19] LABS: Calcium, Random Ur 12 mg/dL; Creatinine, Random Ur 61 mg/dL (16 - 326)
[2021-09-12 23:28] LABS: BKV DNA Detect/Quant, P Undetected IU/mL (Undetected)
[2021-09-13 11:58] LABS: 25-Hydroxy D Total 32 ng/mL; 25-Hydroxy D2 <4.0 ng/mL; 25-Hydroxy D3 32 ng/mL
[2021-09-13 15:34] LABS: PTH-Related Peptide 0.7 pmol/L (< or = 4.2)
== END 2021-09-10 04:14 | disposition home or self-care (01) ==
LOC: LBO 04:13
PROVIDERS: Nurse Practitioner Family; PCP Emergency Medicine; Visit Provider Internal Medicine Nephrology
DX: E55.9 Vitamin D deficiency, unspecified (principal); Z94.0 Kidney transplant status; Z79.899 Other long term (current) drug therapy; Z29.8 Encounter for other specified prophylactic measures; R74.9 Abnormal serum enzyme level, unspecified
CPT/HCPCS: 36415; 80053; 80061; 82306; 82310; 83735; 85027; 80197; 81003; 81015; 82140; 82397; 82565; 83036; 84100; 84105; 84156; 84550; 85045; 87799

== ENCOUNTER → 2021-10-28 10:40 | Outpatient (BNVA) | payer MEDICARE, SELFPAY | PROVIDERS: PCP Family Medicine; Referring Provider Emergency Medicine; Visit Provider Psychiatry & Neurology Neurology | DX: I69.118 Other symptoms and signs involving cognitive functions following nontraumatic intracerebral hemorrhage (principal); R06.6 Hiccough; R25.1 Tremor, unspecified | CPT/HCPCS: 99215 ==

== ENCOUNTER 2021-12-24 00:50 | Outpatient (CLI) | payer MEDICARE, SELFPAY ==
[2021-12-24 12:05] LABS: HCT 43.9 % (40.0-50.0); MCH 30.5 pg (27.0-33.0); MCHC 34.2 % (32.0-36.0); MCV 89 fL (80-95); MPV 9.6 fL (8.0-11.0); Platelet Count 235 10^3/uL (130-400); RBC 4.91 10^6/uL (4.36-5.78); RDW 12.9 % (11.8-14.1); RDW-SD 42.2 fL; WBC 7.26 10^3/uL (4.4-10.8)
[2021-12-24 12:07] LABS: Bilirubin Negative (Negative); Blood Negative (Negative); Clarity Clear (Clear); Glucose Negative (Negative); Ketones Negative (Negative); Leukocyte Esterase Negative (Negative); Nitrite Negative (Negative); Urobilinogen 0.2 EU/dL (Up TO 0.2)
[2021-12-24 12:14] LABS: Bacteria Few HPF (Negative); Casts Negative LPF (Negative); Crystals Negative HPF (Negative); Epithelial Cells Rare HPF (Negative); Mucus Negative (Negative); RBC 0-2 HPF (0-2); WBC 0-2 HPF (0-5)
[2021-12-24 12:15] LABS: C & S Indicated? Yes
[2021-12-24 13:34] LABS: ALT 36 U/L (16-63); AST 22 U/L (15-37); Albumin 3.4 g/dL (3.4-5.0); Alkaline Phosphatase 78 U/L (46-116); Anion Gap 8.1 mmol/L (3-11); BUN 23 mg/dL (7-18); Bilirubin, Total 2.8 mg/dL (0.2-1.0); CO2 28.9 mmol/L (21.0-32.0); CREATININE 1.5 mg/dL (0.70-1.30); Calcium 9.2 mg/dL (8.5-10.1); Chloride 102 mmol/L (98-107); Estimated GFR 45.87 (mL/min/1.73m2); Glucose 139 mg/dL (74-106); Magnesium 1.5 mg/dL (1.8-2.4); PHOSPHORUS 2.9 mg/dL (2.6-4.7); Potassium 3.4 mmol/L (3.5-5.1); Sodium 139 mmol/L (136-145); Total Protein 7.1 g/dL (6.4-8.2); Uric Acid 6.9 mg/dL (3.5-7.2)
[2021-12-24 14:15] LABS: Cholesterol 88 mg/dL (<200)
[2021-12-24 20:24] LABS: COMMENT (LAB VIEW ONLY) 84.29 mg/dL; Prot/Crea Ur Ratio 0.77
[2021-12-25 13:44] LABS: Tacrolimus 5.7 ng/mL (See Note)
== END 2021-12-24 00:51 | disposition home or self-care (01) ==
LOC: LBO 00:50
PROVIDERS: PCP Family Medicine; Visit Provider Internal Medicine Nephrology
DX: Z94.0 Kidney transplant status (principal); Z79.899 Other long term (current) drug therapy; Z29.8 Encounter for other specified prophylactic measures
CPT/HCPCS: 36415; 80053; 85027; 80197; 81003; 81015; 82465; 82565; 83735; 84100; 84156; 84550; 87086

== ENCOUNTER → 2021-12-26 10:42 | Outpatient (BNVA) | payer MEDICARE, SELFPAY | PROVIDERS: PCP Family Medicine; Referring Provider Family Medicine; Visit Provider Psychiatry & Neurology Neurology | DX: I69.118 Other symptoms and signs involving cognitive functions following nontraumatic intracerebral hemorrhage (principal); Z79.01 Long term (current) use of anticoagulants; G20 Parkinson's disease; R06.6 Hiccough | CPT/HCPCS: 99215 ==

== ENCOUNTER 2022-01-13 10:13 | Outpatient (CLI) | payer MEDICARE, SELFPAY ==
--- NOTE | 2022-01-13 09:15 | DI.RAD_ITS ---
Exam(s) XR KNEE LT 3V AP,LAT,PAWEL EXAM: XR KNEE LT 3V AP,LAT,PAWEL CLINICAL HISTORY: pain in knee. TECHNIQUE: 2D digital imaging was performed. COMPARISON: CR XR knee RT 2V AP,lat from 11/17/2018 FINDINGS: 3 views No evidence of fracture nor obvious joint effusion. However, there are significant osteoarthritic de generative changes, most prominent in the lateral and patellofemoral compartments. There is relative preservation of height of the medial compartment noted. On the lateral view there also significant degenerative changes evident in the patellofemoral compartment as well as a loose intra-articular bod y at this level which measures 5 x 3 millimeters. IMPRESSION: Degenerative changes as described above. No fractures. No joint effusion DATA REPOSITORY: RADIATION DOSE DELIVERED:
== END 2022-01-13 10:14 | disposition home or self-care (01) ==
LOC: DIORS 10:14
PROVIDERS: PCP Family Medicine; Referring Provider Family Medicine; Visit Provider Physician Assistant Surgical
DX: M17.12 Unilateral primary osteoarthritis, left knee (principal); Z94.0 Kidney transplant status; I48.91 Unspecified atrial fibrillation; E11.9 Type 2 diabetes mellitus without complications; I12.9 Hypertensive chronic kidney disease with stage 1 through stage 4 chronic kidney disease, or unspecified chronic kidney disease; N18.30 Chronic kidney disease, stage 3 unspecified
CPT/HCPCS: 73562; 99214

== ENCOUNTER 2022-01-16 10:43 | Emergency (ER) | payer MEDICARE, SELFPAY ==
[2022-01-16] VITALS (8 sets, daily range): BP systolic 96–143; BP diastolic 63–86; PULSE 50–115; RESP 16–26; TEMP 36.6–36.7; O2SAT 96–98
--- NOTE | 2022-01-16 11:12 | ED.GENADUL_ITS ---
Discharge Plan Disposition Patient Disposition: HOME Condition: Improving Discharge Details Clinical Impression: Generalized weakness, Dizziness Primary Care Provider: Urbano Jimenez ED Provider: Aminah Walsh Home Meds and New Rx's Prescriptions: Continued atorvastatin 40 mg tablet 40 mg PO QHS (DME) blood sugar diagnostic Strip 1 ea Miscellaneous BID Qty: 180 3RF Rx Instructions: test twice daily omeprazole 20 mg capsule,delayed release(DR/EC) 20 mg PO DAILY PRN (Reason: GERD) Qty: 90 3RF magnesium gluconate 500 mg tablet 1,000 mg PO TID Rx Instructions: Takes 1000 mg AM and PM, takes 500 mg Lunchtime. -hb metoprolol succinate 25 mg tablet extended release 24 hr 12.5 mg PO DAILY aspirin [Adult Low Dose Aspirin] 81 mg tablet,delayed release (DR/EC) 81 mg PO DAILY (DME) OneTouch Ultra Blue Test Strip Strip See Rx Instructions .ROUTE .MEDSUPPLY Qty: 180 4RF Rx Instructions: test BID calcitriol 0.25 mcg capsule 0.5 mcg PO DAILY (DME) blood-glucose meter 1 EACH misc 1 ea Miscellaneous DAILY Qty: 1 Rx Instructions: FOR ONE TOUCH ULTRA MINI Dx 250.00 No insulin (DME) lancets 1 EACH misc 1 ea Miscellaneous DAILY Qty: 100 Rx Instructions: FOR ONE TOUCH ULTRA MINI METER. NO INSULIN. DIAGNOSIS CODE 250.00 mycophenolate mofetil [CellCept] 250 MG capsule 250 mg PO BID ascorbic acid (vitamin C) [Vitamin C] 500 MG capsule, extended release 500 mg PO TID Centrum Silver 0.4-300-250 mg-mcg-mcg tablet 2 tab PO DAILY levothyroxine 137 mcg tablet 137 mcg PO DAILY Qty: 90 3RF tamsulosin 0.4 mg capsule 0.4 mg PO DAILY Qty: 90 3RF amlodipine 5 mg tablet 5 mg PO DAILY Qty: 90 3RF nitroglycerin 0.4 mg tablet, sublingual 0.4 mg SL Q5M PRN (Reason: chest pain) Qty: 10 0RF glipizide 10 mg tablet extended release 24hr 10 mg PO BID Qty: 180 3RF tacrolimus [Prograf] 1 mg capsule 3 mg PO DIRECTED Label Comments: 08-17-17 pt reports that currently he takes 2 tabs in the am and 1 tab in the pm. hb Rx Instructions: 2 in am and one in evening doxycycline hyclate 100 mg capsule 100 cap PO BID Label Comments: TAKE ONE CAPSULE BY MOUTH TWICE A DAY FOR 7 DAYS polyethylene glycol 3350 17 gram Powder In Packet 17 g PO DAILY PRN PRN (Reason: Constipation) Qty: 0 0RF hydralazine 100 mg tablet 100 mg PO BID Qty: 60 0RF Discharge Instructions Instructions: Weakness (ED), Dizziness (ED) Additional Instructions: Your lab work, EKG and imaging today is reassuring and shows no evidence of acute concerning or significant findings. Drink plenty of fluids and get plenty of rest. You have been placed on care management's list to arrange for a follow-up appointment with Dr. Turner next week. Return immediately to the emergency department if you develop any worsening or new concerning symptoms. Referrals: Shannan Turner MD [ [facility] STAFF PHYSICIAN] - Discharge Data Discharge Physician: Aminah Walsh Medical Decision Making 71yo M w/ a h/o diabetes, CVA, hypertension, hyperlipidemia, CHF, atrial fibrillation, NSTEMI, hepatitis C, chronic renal insufficiency with history of renal transplant 5 years ago w/ h/o basal ganglia hemorrhage presents for lightheadedness and generalized weakness for the past week. Patient was seen at [facility] 1 week ago and diagnosed with pneumonia for which she has been taking doxycycline. Heart rate bradycardic at 55 which is close to his usual baseline. EKG notes a rate of 47, atrial flutter and no stemi. Patient otherwise appears comfortable and nontoxic. He has no focal deficits on exam. Differential diagnosis includes dehydration, UTI, progression of pneumonia, COVID, influenza, CVA, ACS, electrolyte abnormality. Will place an IV, bolus IV fluids, screening labs, CT head, chest x-ray, fluvid and reassess. Labs and imaging reviewed. Normal white blood cell count. Creatinine 1.6 which is minimally increased above baseline. Magnesium 1.5, will replete. Troponin negative. Urinalysis unremarkable. Fluvid negative. CT head negative for acute findings. Chest x-ray negative. Patient referred for MRI brain after discussion with radiologist which was negative for acute findings. MRI brain did note multiple hypointense signal changes on the gradient images with differential considerations of cerebral amyloid disease, hypertensive microhemorrhages and multiple vascular malformations --this was reviewed with Dr. Turner and states that these findings are known and no other acute recommendations. Patient feels much better and was able to eat and would like to go home. Patient placed on follow-up list for reevaluation with Dr. Turner. Usual and customary return precautions given prior to discharge. Medical Records Medical records reviewed: Yes I reviewed the patient's medical records. Imaging Data Radiologic Study: Radiologist's impression: CT HEAD WO CLINICAL HISTORY: ? dizziness, r/o acute disease. ? TECHNIQUE:? Imaging Protocol: Axial computed tomography images with coronal and sagittal reformatted images were created and reviewed COMPARISON:? CT HEAD WITH/WITHOUT CONTRAST from 04/26/[address] HEAD WO from 02/26/[address] HEAD WO from 02/27/2021 FINDINGS: Ventricles and Extra axial spaces: Normal in size and morphology for the patient's age. Hemorrhage: History of old left basal gangliar hemorrhage.? Cerebral parenchyma: No acute territorial infarct is present.? There are areas of decreased attenuation in the white matter consistent with small vessel ischemic disease.? Dystrophic basal gangliar calcifications are seen bilaterally, left greater than right.? Midline shift: None. Brainstem/Cerebellum: Normal. Calvarium: Normal. Visualized Paranasal sinuses/Mastoids: Clear. Soft Tissues: Unremarkable. IMPRESSION: 1. No definite acute intracranial process.? 2. Follow-up as clinically appropriate. 3. Results of this exam have been verbally communicated with provider. XR CHEST 2V PA ? LATERAL CLINICAL HISTORY:? gen weak, recent pneumonia, assess for acute dz TECHNIQUE:? 2D digital imaging was performed of the chest.? Two images were obtained.? PA and lateral views were obtained. COMPARISON:? No exams were available for comparison FINDINGS: MEDIASTINUM: Normal.? HEART: Normal. PULMONARY VASCULATURE: Normal. LUNGS: Clear.? The lungs appear hyperinflated suggesting underlying COPD. PLEURAL SPACE: No pleural effusion or pneumothorax. BONE:Within normal limits for the patient's age.? OTHER FINDINGS:Normal.? IMPRESSION: No acute pulmonary findings. MR BRAIN WO CLINICAL HISTORY:? lightheadedness, r/o acute cva TECHNIQUE:? Multiplanar multisequence MRI of the brain was performed. COMPARISON:? No exams were available for comparison FINDINGS: VENTRICLES AND EXTRA AXIAL SPACES: Normal in size and morphology for the patient's age. MIDLINE SHIFT: None. CEREBRAL PARENCHYMA: No focus of restricted diffusion to suggest acute infarct. No space-occupying lesion identified. There are areas of hyperintense signal in the white matter most consistent with small vessel ischemic disease. HEMORRHAGE: There are multiple areas of hypointense signal on the gradient images.? There is hypointense signal seen in the left basal ganglia consistent with the patient's prior hemorrhage.? (02/26/2021). BRAINSTEM/CEREBELLUM: Normal. CALVARIUM: Normal.? VISUALIZED PARANASAL SINUSES/MASTOIDS:Clear. [place] OF [place]HMO[place]: Normal flow void. PITUITARY GLAND: Unremarkable. OTHER FINDINGS: None. IMPRESSION: 1. No evidence of an acute infarct. 2. Cerebral atrophy and small vessel ischemic disease. 3. Multiple hypointense signal changes on the gradient images.? Primary differential considerations include cerebral amyloid disease, hypertensive microhemorrhages and multiple vascular malformations.? 4. Results of this exam have been verbally communicated with provider. Lab Data Lab results reviewed: Yes I reviewed the patient's lab results. Labs: Laboratory Tests Range/Units 01/16/22 01/16/22 01/16/22 11:45 11:45 12:00 WBC (4.4-10.8) 10^3/uL 7.49 RBC (4.36-5.78) 10^6/uL 4.75 Hgb (13.5-17.5) g/dL 14.7 Hct (40.0-50.0) % 43.1 MCV (80-95) fL 91 MCH (27.0-33.0) pg 30.9 MCHC (32.0-36.0) % 34.1 RDW (11.8-14.1) % 13.0 Plt Count (130-400) 10^3/uL 234 MPV (8.0-11.0) fL 9.3 Immature Gran % 0.1 Neutrophils % 67.3 Lymphocytes % 20.3 Monocytes % 8.7 Eosinophils % 2.8 Basophils % 0.8 Nucleated RBC % (0.0-0.3) % 0.0 Absolute Neutrophils (1.2-6.7) 10^3/uL 5.04 Absolute Lymphocytes (1.2-3.4) 10^3/uL 1.52 Absolute Monocytes (0.1-0.8) 10^3/uL 0.65 Absolute Eosinophils (0.0-0.7) 10^3/uL 0.21 Absolute Basophils (0.0-0.2) 10^3/uL 0.06 Sodium (136-145) mmol/L 142 Potassium (3.5-5.1) mmol/L 3.7 Chloride (98-107) mmol/L 105 Carbon Dioxide (21.0-32.0) mmol/L 29.6 Anion Gap (3-11) mmol/L 7.4 BUN (7-18) mg/dL 22 H Creatinine (0.70-1.30) mg/dL 1.6 H Estimated GFR/1.73 m2 (mL/min/1.73m2) 42.58 Glucose (74-106) mg/dL 144 H Calcium (8.5-10.1) mg/dL 9.2 Magnesium (1.8-2.4) mg/dL 1.5 L Total Bilirubin (0.2-1.0) mg/dL 3.3 H AST (15-37) U/L 20 ALT (16-63) U/L 31 Alkaline Phosphatase (46-116) U/L 68 Troponin I (<or=60) ng/L < 50 Total Protein (6.4-8.2) g/dL 6.8 Albumin (3.4-5.0) g/dL 3.3 L Urine Color (Yellow) Yellow Urine Clarity (Clear) Clear Urine pH (5-8) 7.0 Ur Specific [place] (1.005-1.025) 1.020 Urine Protein (Negative) mg/dL 100 H Urine Ketones (Negative) mg/dL Negative Urine Blood (Negative) Negative Urine Nitrite (Negative) Negative Urine Bilirubin (Negative) Negative Urine Urobilinogen (Up TO 0.2) EU/dL 0.2 Ur Leukocyte Esterase (Negative) Negative Urine RBC (0-2) HPF 0-2 Urine WBC (0-5) HPF 0-2 Ur Epithelial Cells (Negative) HPF Rare Urine Crystals (Negative) HPF Negative Urine Bacteria (Negative) HPF Negative Urine Casts (Negative) LPF Negative Urine Mucus (Negative) Trace Ur Culture Indicated? No Urine Glucose (Negative) mg/dL Negative COVID-19 Source SARS-CoV-2 (PCR) (Negative) Influenza Type A (PCR) (Negative) Influenza Type B (PCR) (Negative) RSV (PCR) (Negative) Range/Units 01/16/22 12:12 WBC (4.4-10.8) 10^3/uL RBC (4.36-5.78) 10^6/uL Hgb (13.5-17.5) g/dL Hct (40.0-50.0) % MCV (80-95) fL MCH (27.0-33.0) pg MCHC (32.0-36.0) % RDW (11.8-14.1) % Plt Count (130-400) 10^3/uL MPV (8.0-11.0) fL Immature Gran % Neutrophils % Lymphocytes % Monocytes % Eosinophils % Basophils % Nucleated RBC % (0.0-0.3) % Absolute Neutrophils (1.2-6.7) 10^3/uL Absolute Lymphocytes (1.2-3.4) 10^3/uL Absolute Monocytes (0.1-0.8) 10^3/uL Absolute Eosinophils (0.0-0.7) 10^3/uL Absolute Basophils (0.0-0.2) 10^3/uL Sodium (136-145) mmol/L Potassium (3.5-5.1) mmol/L Chloride (98-107) mmol/L Carbon Dioxide (21.0-32.0) mmol/L Anion Gap (3-11) mmol/L BUN (7-18) mg/dL Creatinine (0.70-1.30) mg/dL Estimated GFR/1.73 m2 (mL/min/1.73m2) Glucose (74-106) mg/dL Calcium (8.5-10.1) mg/dL Magnesium (1.8-2.4) mg/dL Total Bilirubin (0.2-1.0) mg/dL AST (15-37) U/L ALT (16-63) U/L Alkaline Phosphatase (46-116) U/L Troponin I (<or=60) ng/L Total Protein (6.4-8.2) g/dL Albumin (3.4-5.0) g/dL Urine Color (Yellow) Urine Clarity (Clear) Urine pH (5-8) Ur Specific [place] (1.005-1.025) Urine Protein (Negative) mg/dL Urine Ketones (Negative) mg/dL Urine Blood (Negative) Urine Nitrite (Negative) Urine Bilirubin (Negative) Urine Urobilinogen (Up TO 0.2) EU/dL Ur Leukocyte Esterase (Negative) Urine RBC (0-2) HPF Urine WBC (0-5) HPF Ur Epithelial Cells (Negative) HPF Urine Crystals (Negative) HPF Urine Bacteria (Negative) HPF Urine Casts (Negative) LPF Urine Mucus (Negative) Ur Culture Indicated? Urine Glucose (Negative) mg/dL COVID-19 Source Nasopharynx SARS-CoV-2 (PCR) (Negative) Negative Influenza Type A (PCR) (Negative) Negative Influenza Type B (PCR) (Negative) Negative RSV (PCR) (Negative) Negative ECG Data Attestation: I personally reviewed and interpreted this ECG (s) as follows: Interpretation: Rate of 47, atrial flutter, no STEMI. HPI General Mode of arrival: ambulatory . Date/Time Provider Initiated Documentation: 01/16/22 11:10 . Limitations to Documentation: no limitations . Information obtained by: patient . HPI Narrative: Patient is a 71yo M w/ a h/o diabetes, CVA, hypertension, hyperlipidemia, CHF, atrial fibrillation, NSTEMI, hepatitis C, chronic renal insufficiency with history of renal transplant 5 years ago w/ h/o basal ganglia hemorrhage presents for lightheadedness and generalized weakness for the past week. Patient states he was seen at [facility] 1 week ago and diagnosed with pneumonia and started on doxycycline which he has been taking. Patient and state that his symptoms are similar to when he had a stroke in February 2021. Patient denies headache, blurry vision, chest pain, shortness of breath, abdominal pain, vomiting, diarrhea or urinary symptoms. Related Data Home Medications Medication Instructions Recorded Confirmed blood-glucose meter #1 ea 09/27/14 01/13/22 lancets 28 gauge #100 ea 09/27/14 01/13/22 mycophenolate mofetil 250 mg 250 mg PO BID 04/15/16 01/16/22 capsule (CellCept) ascorbic acid (vitamin C) 500 mg 500 mg PO TID 09/05/16 01/16/22 capsule,extended release (Vitamin C) atorvastatin 40 mg tablet 40 mg PO QHS 03/04/19 01/16/22 blood sugar diagnostic #180 strips 03/04/19 01/13/22 omeprazole 20 mg capsule,delayed 20 mg PO DAILY PRN GERD #90 caps 06/17/19 01/16/22 release blood sugar diagnostic (OneTouch #180 ea 10/17/20 01/13/22 Ultra Blue Test Strip) [id number] acid 0.4 2 tab PO DAILY 01/16/21 01/16/22 mg-lycopene 300 mcg-lutein 250 mcg tablet (Centrum Silver) levothyroxine 137 mcg tablet 137 mcg PO DAILY #90 tab-caps 01/17/21 01/16/22 tamsulosin 0.4 mg capsule 0.4 mg PO DAILY #90 tab-caps 01/29/21 01/16/22 hydralazine 100 mg tablet 100 mg PO BID #60 tabs 03/01/21 01/16/22 polyethylene glycol 3350 17 gram 17 g PO DAILY PRN PRN Constipation 03/01/21 01/16/22 oral powder packet #0 ea calcitriol 0.25 mcg capsule 0.5 mcg PO DAILY 04/10/21 01/16/22 magnesium gluconate 500 mg tablet 1,000 mg PO TID 04/23/21 01/16/22 metoprolol succinate 25 mg 12.5 mg PO DAILY 04/23/21 01/16/22 tablet,extended release 24 hr amlodipine 5 mg tablet 5 mg PO DAILY #90 tabs 05/28/21 01/16/22 nitroglycerin 0.4 mg sublingual 0.4 mg sublingual Q5M PRN chest 11/01/21 01/16/22 tablet pain #10 tabs glipizide 10 mg tablet, extended 10 mg PO BID #180 tabs 11/26/21 01/16/22 release 24 hr aspirin 81 mg tablet,delayed 81 mg PO DAILY 12/26/21 01/16/22 release (Adult Low Dose Aspirin) tacrolimus 1 mg capsule, 3 mg PO DIRECTED 01/13/22 01/16/22 immediate-release (Prograf) doxycycline hyclate 100 mg capsule 100 cap PO BID 01/16/22 01/16/22 Previous Rx's Medication Instructions Recorded blood sugar diagnostic #180 strips 03/04/19 omeprazole 20 mg capsule,delayed 20 mg PO DAILY PRN GERD #90 caps 06/17/19 release blood sugar diagnostic (OneTouch #180 ea 10/17/20 Ultra Blue Test Strip) levothyroxine 137 mcg tablet 137 mcg PO DAILY #90 tab-caps 01/17/21 tamsulosin 0.4 mg capsule 0.4 mg PO DAILY #90 tab-caps 01/29/21 hydralazine 100 mg tablet 100 mg PO BID #60 tabs 03/01/21 polyethylene glycol 3350 17 gram 17 g PO DAILY PRN PRN Constipation 03/01/21 oral powder packet #0 ea amlodipine 5 mg tablet 5 mg PO DAILY #90 tabs 05/28/21 nitroglycerin 0.4 mg sublingual 0.4 mg sublingual Q5M PRN chest 11/01/21 tablet pain #10 tabs glipizide 10 mg tablet, extended 10 mg PO BID #180 tabs 11/26/21 release 24 hr Allergies Allergy/AdvReac Type Severity Reaction Status Date / Time strawberry Allergy Unknown Verified 01/16/22 11:09 General Stated Complaint: GenMedical ALICIA: 3 Review of Systems All systems reviewed & are unremarkable except as noted in HPI and below Constitutional Constitutional: Denies chills, Denies excessive sweating, Denies fatigue, Denies fever(s), Reports weakness and Denies weight loss Eyes Eyes: Reports system reviewed and no additional complaints, except as documented and Denies blurry vision ENT Ears, Nose, Mouth, and Throat: Denies vertigo, Reports dizziness, Denies otalgia, Denies nasal congestion, Denies sore throat and Denies throat swelling Cardiovascular Cardiovascular: Denies chest pain, Denies syncope, Denies rapid heart rate and Denies dyspnea Respiratory Respiratory: Denies chest congestion, Denies cough, Denies pain on inspiration and Denies dyspnea Gastrointestinal Gastrointestinal: Denies abdominal pain, Denies diarrhea and Denies vomiting Genitourinary Genitourinary: Denies hematuria, Denies dysuria and Denies flank pain Musculoskeletal Musculoskeletal: Denies back pain and Denies joint swelling Integumentary/Breasts Skin/Breast: Denies lesions and Denies rash Neurologic Neurologic: Denies behavioral changes, Denies confusion, Denies vertigo, Reports dizziness, Denies syncope, Denies localized weakness and Reports weakness Psychiatric Psychiatric: Denies behavioral changes, Denies confusion and Denies depression Endocrine Endocrine: Denies excessive sweating and Denies fatigue Hematologic/Lymphatic Hematologic/Lymphatic: Denies easy bruising and Denies lymphadenopathy Allergic/Immunologic Allergic/Immunologic: Denies throat swelling PFSH All Active Problems Generalized weakness (Acute) Dizziness (Acute) Osteoarthritis of left knee (Acute) Parkinsonism (Acute) Tremor (Acute) Acute diverticulitis (Acute) - confirmed by CT , inpt at [facility] Bradycardia (Acute) Vasogenic edema (Acute) Hypertension (Chronic) Hiccups (Acute) 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, tx at [facility], anticoagulant stopped Altered mental status (Acute) Hypertensive retinopathy (Acute ~09/27/20) [place] 09/27/20- MILD TO MODERATE-KB Spinal stenosis (Acute) L5-S1 Subsequent non-ST elevation (NSTEMI) myocardial infarction within 4 weeks of initial infarction (Acute) stents History of arthroscopy of knee (Acute) History of biopsy (Acute) Perirectal abscess (Acute) Status post rotator cuff repair (Acute) Postoperative stiffness of total knee replacement (Chronic) Olecranon bursitis, left elbow (Chronic) Arthritis of left elbow (Acute) Tubular adenoma (Acute 09/12/15) 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 Microscopic hematuria (Acute 05/21/12) neg [facility] [place]. 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 Need dialysis or transplant. 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 s/p hernia repair b. s/p knee arthroscopy c. s/p unspecified shoulder surgery d. s/p vasectomy Medical History (Updated 01/16/22 @ 15:46 by Aminah Walsh DO) Atrial fibrillation BPH (benign prostatic hyperplasia) CHF (congestive heart failure) Chronic kidney disease CVA (cerebral vascular accident) Diabetes Fistula GERD (gastroesophageal reflux disease) Hepatitis C HTN (hypertension) Hyperlipemia Hypothyroidism Myocardial infarction Obstructive sleep apnea Surgical History Arthroplasty of knee 2005-right BIOPSY, KIDNEY (10/16/14) [facility]-RIGHT Colonoscopy - MAC 2008 H/O bladder repair surgery H/O vasectomy History of hernia repair KIDNEY TRANSPLANT (09/16/15) [facility]-09/16/15 Rotator Cuff Repair left Family History Mother Essential hypertension Father Myocardial infarction Stroke Brother Essential hypertension Neoplasm Social History (Updated 01/03/22 @ 14:44 by Germaine Guillaume) Smoking/Tobacco Use Status: Current-Occasional Tobacco Type: cigars Tobacco: How many years used: 20 Smoking risk assessment performed?: Yes Alcohol Intake: never Drug use: Occasionally Substance use type: marijuana Adopted: No Caregiver/Support person: Yes Foster care: No Household members: spouse Housing: house Number of Children: 2 number of grandchildren: 1 Communication Needs: None Education Level: high school Pets and animals: Yes Pets and animals: dog(s) Sexually active: No Do you think of yourself as: straight/heterosexual Current gender identity: male What is your relationship status?: How often do you talk on the phone with friends or family?: three or more times per week Do you belong to any clubs or organized social groups?: no Panel score (0-1 are the most socially isolated patients): 2 Idalia/Episcopal: None Special idalia needs: No Seatbelt use: always Helmet use: Yes Helmet use: always Drive intox or ride w/intox hydraulic lift driver: No Do you feel safe at home: Yes Do you feel safe in your relationship?: Yes Exam Const General: cooperative and ill appearing chronically Nutritional Appearance: obese morbidly obese Orientation: alert, awake and oriented x3 HENMT Head: normal to inspection Ears: hearing grossly normal bilaterally, external ears normal and TM's normal bilaterally General nose exam: external nose normal Face and sinus: normal facial exam Mouth: oral mucosae normal Teeth and gingiva: dentition normal Throat: posterior oropharynx normal Eyes General: appearance normal, both eyes and all related structures Eyelids: eyelids normal Pupils: PERRL EOM: EOM intact bilaterally Neck Neck: normal visual inspection Lymphatic: no lymphadenopathy noted Chest Chest: normal inspection of the chest Resp Effort & Inspection: normal respiratory effort and able to speak in complete sentences Auscultation: clear to auscultation bilaterally Cardio Rate: bradycardic Rhythm: regular rhythm GI Inspection: normal to inspection Palpation: soft, not firm, no guarding, no hepatosplenomegaly, no masses and nontender Auscultation: normal bowel sounds Back/Spine/Pelvis Back: no CVA tenderness Skin General skin exam: no rashes or lesions noted Neuro General: patient alert, patient awake, moves all extremities and no meningeal signs Cranial Nerves: CN's II-XI intact bilaterally Cognition: normal cognition Speech: speech normal Gait: normal gait Motor: muscle tone normal throughout and strength 5/5 throughout Sensory Exam: no sensory deficits noted Extrem General: normal to inspection, full ROM and capillary refill normal Psych Appearance: grossly normal Mental Status: mental status grossly normal Speech and Movement: speech and movement normal Affect: normal affect Thought Process: normal Course Vital Signs Vital signs: Vital Signs Temperature 98.1 F 01/16/22 11:05 Pulse 55 L 01/16/22 11:05 Respiratory Rate 16 01/16/22 11:05 Blood Pressure 126/66 01/16/22 11:05 Pulse Oximetry 98 01/16/22 11:05 Temperature 98.1 F 01/16/22 11:05 Temperature Source Temporal Artery Scan 01/16/22 11:05 Pulse 55 L 01/16/22 11:05 Respiratory Rate 16 01/16/22 11:05 Blood Pressure 126/66 01/16/22 11:05 Blood Pressure Position Sitting 01/16/22 11:05 Pulse Oximetry 98 01/16/22 11:05 Oxygen Delivery Method Room Air 01/16/22 11:05 Oxygen Flow Rate 0 01/16/22 11:05 Pain Level 0 01/16/22 11:05
--- NOTE | 2022-01-16 11:15 | RT.EKG_ITS ---
APPROVED REPORT Exam: Resting ECG Reason for Exam: dizziness Patient Location: E HR:47 bpm ECG Measurements Heart Rate 47 AXIS AZ [id number] P [id number] QRSd 118 QRS -63 QT 438 T -55 QTc 390 Conclusion Atrial flutter...A-rate 245 Left anterior fascicular block...axis(240,-40), init forces inf Probable left ventricular hypertrophy...(RaVL+SV3)xQRSd >280 Nonspecific T abnrm, anterolateral leads...T <-0.10mV, I aVL V2-V6. Aflutter. No STEMI. I have reviewed and interpreted ECG and agree with software generated interpretation.
--- NOTE | 2022-01-16 11:30 | DI.RAD_ITS ---
Exam(s) XR CHEST 2V PA LATERAL EXAM: XR CHEST 2V PA LATERAL CLINICAL HISTORY: gen weak, recent pneumonia, assess for acute dz TECHNIQUE: 2D digital imaging was performed of the chest. Two images were obtained. PA and lateral views were obtained. COMPARISON: No exams were available for comparison FINDINGS: MEDIASTINUM: Normal. HEART: Normal. PULMONARY VASCULATURE: Normal. LUNGS: Clear. The lungs appear hyperinflated suggesting underlying COPD. PLEURAL SPACE: No pleural effusion or pneumothorax. BONE:Within normal limits for the patient's age. OTHER FINDINGS:Normal. IMPRESSION: No acute pulmonary findings. DATA REPOSITORY: RADIATION DOSE DELIVERED:
--- NOTE | 2022-01-16 11:30 | DI.CT_ITS ---
Exam(s) CT HEAD WO EXAM: CT HEAD WO CLINICAL HISTORY: dizziness, r/o acute disease. TECHNIQUE: Imaging Protocol: Axial computed tomography images with coronal and sagittal reformatted images were created and reviewed COMPARISON: CT HEAD WITH/WITHOUT CONTRAST from 04/26/[address] HEAD WO from 02/26/[address] HEAD WO from 02/27/2021 FINDINGS: Ventricles and Extra axial spaces: Normal in size and morphology for the patient's age. 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 Cerebral parenchyma: No acute territorial infarct is present. There are areas of decreased attenuati on in the white matter consistent with small vessel ischemic disease. Dystrophic basal gangliar calc ifications are seen bilaterally, left greater than right. Midline shift: None. Brainstem/Cerebellum: Normal. Calvarium: Normal. Visualized Paranasal sinuses/Mastoids: Clear. Soft Tissues: Unremarkable. IMPRESSION: 1. No definite acute intracranial process. 2. Follow-up as clinically appropriate. 3. Results of this exam have been verbally communicated with provider. RADIATION DOSE DELIVERED: 879.07mGy.cm Total DLP DATA REPOSITORY: All CT scans at this facility are submitted to the National Radiology Data Registry (NRDR) Dose Index Registry (DIR) with the [employer] ([employer]). RADIATION OPTIMIZATION: All CT scans at this facility use at least one of these dose optimization te chniques: automated exposure control; mA and/or kV adjustment per patient size (includes targeted exa ms where dose is matched to clinical indication); or iterative reconstruction.
[2022-01-16 11:50] LABS: Abs Immature Grans 0.01 10^3/uL (0.0-0.06); Absolute Basophil Count 0.06 10^3/uL (0.0-0.2); Absolute Eosinophil Count 0.21 10^3/uL (0.0-0.7); Absolute Lymphocyte Count 1.52 10^3/uL (1.2-3.4); Absolute Monocyte Count 0.65 10^3/uL (0.1-0.8); Absolute Neutrophil Count 5.04 10^3/uL (1.2-6.7); Basophils % 0.8; Eosinophils % 2.8; HCT 43.1 % (40.0-50.0); HGB 14.7 g/dL (13.5-17.5); Immature Grans % 0.1; Lymphocytes % 20.3; MCH 30.9 pg (27.0-33.0); MCHC 34.1 % (32.0-36.0); MCV 91 fL (80-95); MPV 9.3 fL (8.0-11.0); Monocytes % 8.7; Neutrophils % 67.3; Platelet Count 234 10^3/uL (130-400); RBC 4.75 10^6/uL (4.36-5.78); RDW-SD 42.3 fL; WBC 7.49 10^3/uL (4.4-10.8)
[2022-01-16 12:04] LABS: Bilirubin Negative (Negative); Blood Negative (Negative); Clarity Clear (Clear); Glucose Negative (Negative); Ketones Negative (Negative); Leukocyte Esterase Negative (Negative); Nitrite Negative (Negative); Urobilinogen 0.2 EU/dL (Up TO 0.2)
[2022-01-16] MEDS: Normal Saline 500 ML IV (12:05)
[2022-01-16 12:08] LABS: ALT 31 U/L (16-63); AST 20 U/L (15-37); Albumin 3.3 g/dL (3.4-5.0); Alkaline Phosphatase 68 U/L (46-116); Anion Gap 7.4 mmol/L (3-11); BUN 22 mg/dL (7-18); Bilirubin, Total 3.3 mg/dL (0.2-1.0); CO2 29.6 mmol/L (21.0-32.0); CREATININE 1.6 mg/dL (0.70-1.30); Calcium 9.2 mg/dL (8.5-10.1); Chloride 105 mmol/L (98-107); Estimated GFR 42.58 (mL/min/1.73m2); Glucose 144 mg/dL (74-106); Magnesium 1.5 mg/dL (1.8-2.4); Potassium 3.7 mmol/L (3.5-5.1); Sodium 142 mmol/L (136-145); Total Protein 6.8 g/dL (6.4-8.2); Troponin I < 50 ng/L (<or=60)
[2022-01-16 12:11] LABS: Bacteria Negative HPF (Negative); C & S Indicated? No; Casts Negative LPF (Negative); Crystals Negative HPF (Negative); Epithelial Cells Rare HPF (Negative); Mucus Trace (Negative); RBC 0-2 HPF (0-2); WBC 0-2 HPF (0-5)
--- NOTE | 2022-01-16 12:45 | DI.MRI_ITS ---
Exam(s) MR BRAIN WO EXAM: MR BRAIN WO CLINICAL HISTORY: lightheadedness, r/o acute cva TECHNIQUE: Multiplanar multisequence MRI of the brain was performed. COMPARISON: No exams were available for comparison FINDINGS: VENTRICLES AND EXTRA AXIAL SPACES: Normal in size and morphology for the patient's age. MIDLINE SHIFT: None. CEREBRAL PARENCHYMA: No focus of restricted diffusion to suggest acute infarct. No space-occupying le georgette identified. There are areas of hyperintense signal in the white matter most consistent with smal l vessel ischemic disease. HEMORRHAGE: There are multiple areas of hypointense signal on the gradient images. There is hypointe nse signal seen in the left basal ganglia consistent with the patient's prior hemorrhage. (02/26/2021 ). BRAINSTEM/CEREBELLUM: Normal. CALVARIUM: Normal. VISUALIZED PARANASAL SINUSES/MASTOIDS:Clear. [place]: Normal flow void. PITUITARY GLAND: Unremarkable. OTHER FINDINGS: None. IMPRESSION: 1. No evidence of an acute infarct. 2. Cerebral atrophy and small vessel ischemic disease. 3. Multiple hypointense signal changes on the gradient images. Primary differential considerations i nclude cerebral amyloid disease, hypertensive microhemorrhages and multiple vascular malformations. 4. Results of this exam have been verbally communicated with provider. DATA REPOSITORY:
[2022-01-16 13:19] LABS: COVID-19 PCR Negative (Negative); Influenza A PCR Negative (Negative); Influenza B PCR Negative (Negative); RSV PCR Negative (Negative)
[2022-01-16 13:26] LABS: Source Nasopharynx
[2022-01-16] MEDS: MAGNESIUM SULFATE 1 GM/100 ML BAG IVPB (14:58)
== END 2022-01-16 16:10 | disposition home or self-care (01) ==
PROVIDERS: Emergency Provider Physician Assistant; PCP Family Medicine
DX: R42 Dizziness and giddiness (principal); R53.1 Weakness; J18.9 Pneumonia, unspecified organism; E66.01 Morbid (severe) obesity due to excess calories; I13.0 Hypertensive heart and chronic kidney disease with heart failure and stage 1 through stage 4 chronic kidney disease, or unspecified chronic kidney disease; E11.22 Type 2 diabetes mellitus with diabetic chronic kidney disease; I50.9 Heart failure, unspecified; N18.9 Chronic kidney disease, unspecified; I48.91 Unspecified atrial fibrillation; I25.2 Old myocardial infarction; F17.290 Nicotine dependence, other tobacco product, uncomplicated; Z86.73 Personal history of transient ischemic attack (TIA), and cerebral infarction without residual deficits; Z20.822 Contact with and (suspected) exposure to COVID-19; Z79.82 Long term (current) use of aspirin; Z94.0 Kidney transplant status
CPT/HCPCS: 80053; 87637; 93005; 96361; 96365; 99284; 99285; 70450; 70551; 71046; 81003; 81015; 83735; 84484; 85025; 93010; J3475

== ENCOUNTER 2022-01-21 11:10 | Outpatient (CLI) | payer MEDICARE, SELFPAY ==
--- NOTE | 2022-01-21 11:00 | RT.EKG_ITS ---
APPROVED REPORT Exam: Resting ECG Reason for Exam: increased HR Patient Location: O HR:118 bpm ECG Measurements Heart Rate 118 AXIS FL [id number] P [id number] QRSd 111 QRS -61 QT 353 T 73 QTc 494 Conclusion Atrial flutter...A-rate 272 Left anterior fascicular block...axis(240,-40), init forces inf Probable left ventricular hypertrophy...(RaVL+SV3)xQRSd >280
== END 2022-01-21 11:11 | disposition home or self-care (01) ==
LOC: DI.KIM 11:12
PROVIDERS: PCP Family Medicine; Visit Provider Family Medicine
DX: R00.0 Tachycardia, unspecified (principal); R94.31 Abnormal electrocardiogram [ECG] [EKG]; I48.92 Unspecified atrial flutter; I44.4 Left anterior fascicular block
CPT/HCPCS: 93010

== ENCOUNTER → 2022-01-23 15:19 | Outpatient (BNVA) | payer MEDICARE, SELFPAY | PROVIDERS: PCP Family Medicine; Referring Provider Family Medicine; Visit Provider Psychiatry & Neurology Neurology | DX: I48.91 Unspecified atrial fibrillation (principal); Z86.73 Personal history of transient ischemic attack (TIA), and cerebral infarction without residual deficits; Z79.82 Long term (current) use of aspirin; I10 Essential (primary) hypertension; R41.3 Other amnesia; G20 Parkinson's disease; R06.6 Hiccough | CPT/HCPCS: 99214 ==

== ENCOUNTER 2022-01-30 10:24 | Emergency (ER) | payer MEDICARE, SELFPAY ==
[2022-01-30] VITALS (69 sets, daily range): BP systolic 94–147; BP diastolic 53–85; PULSE 0–115; RESP 5–31; O2SAT 91–97
--- NOTE | 2022-01-30 10:15 | RT.EKG_ITS ---
APPROVED REPORT Exam: Resting ECG Reason for Exam: Tachycardia Patient Location: E HR:76 bpm ECG Measurements Heart Rate 76 AXIS NH [id number] P [id number] QRSd 110 QRS -65 QT 411 T 101 QTc 463 Conclusion Atrial fibrillation...V-rate 74-103, irreg A-activity Left anterior fascicular block...axis(240,-40), init forces inf Probable left ventricular hypertrophy...(RaVL+SV3)xQRSd >280
[2022-01-30 11:28] LABS: Abs Immature Grans 0.05 10^3/uL (0.0-0.06); Absolute Basophil Count 0.05 10^3/uL (0.0-0.2); Absolute Eosinophil Count 0.25 10^3/uL (0.0-0.7); Absolute Lymphocyte Count 1.53 10^3/uL (1.2-3.4); Absolute Monocyte Count 0.74 10^3/uL (0.1-0.8); Absolute Neutrophil Count 7.73 10^3/uL (1.2-6.7); Basophils % 0.5; Eosinophils % 2.4; HCT 45.4 % (40.0-50.0); HGB 15.3 g/dL (13.5-17.5); Immature Grans % 0.5; Lymphocytes % 14.8; MCH 30.5 pg (27.0-33.0); MCHC 33.7 % (32.0-36.0); MCV 91 fL (80-95); MPV 9.7 fL (8.0-11.0); Monocytes % 7.1; Neutrophils % 74.7; Platelet Count 265 10^3/uL (130-400); RBC 5.01 10^6/uL (4.36-5.78); RDW 13.2 % (11.8-14.1); WBC 10.35 10^3/uL (4.4-10.8)
[2022-01-30 11:29] LABS: Source Nasal/Nares
--- NOTE | 2022-01-30 11:30 | DI.RAD_ITS ---
Exam(s) XR PORTABLE CHEST AP EXAM: XR PORTABLE CHEST AP CLINICAL HISTORY: shortness of breath TECHNIQUE: 2D digital imaging was performed of the chest. One image was obtained. An AP view was ob tained. COMPARISON: CR XR CHEST 2V PA LATERAL from 01/16/2022 FINDINGS: MEDIASTINUM: Normal. HEART: Upper limits of normal to mildly enlarged. PULMONARY VASCULATURE: Normal. LUNGS: Clear. PLEURAL SPACE: No pleural effusion or pneumothorax. BONE:Within normal limits for the patient's age. OTHER FINDINGS:Normal. IMPRESSION: No acute pulmonary findings. DATA REPOSITORY: RADIATION DOSE DELIVERED:
[2022-01-30 11:53] LABS: Troponin I < 50 ng/L (<or=60)
[2022-01-30 11:55] LABS: ALT 29 U/L (16-63); AST 17 U/L (15-37); Albumin 3.3 g/dL (3.4-5.0); Alkaline Phosphatase 67 U/L (46-116); Anion Gap 7.1 mmol/L (3-11); BUN 25 mg/dL (7-18); Bilirubin, Total 2.4 mg/dL (0.2-1.0); CO2 27.9 mmol/L (21.0-32.0); CREATININE 1.9 mg/dL (0.70-1.30); Calcium 9.5 mg/dL (8.5-10.1); Chloride 104 mmol/L (98-107); Estimated GFR 34.92 (mL/min/1.73m2); Glucose 185 mg/dL (74-106); Magnesium 1.5 mg/dL (1.8-2.4); NT-proBNP 5446 pg/mL (<300); Potassium 3.7 mmol/L (3.5-5.1); Sodium 139 mmol/L (136-145); Total Protein 6.9 g/dL (6.4-8.2)
--- NOTE | 2022-01-30 12:02 | NUR.NOTE ---
Pt, has had episodes of heartrate down into the 20's, defib pads applied anterior/posterior.Nursing Note:
[2022-01-30 12:28] LABS: COVID-19 PCR Negative (Negative)
[2022-01-30 12:32] LABS: TSH (W/Ref FT4) 3.08 uIU/mL (0.36-3.74)
--- NOTE | 2022-01-30 12:34 | W.ED.GENAD ---
Discharge Plan Disposition Patient Disposition: [facility] Condition: Serious Discharge Details Clinical Impression: Tachy-sakina syndrome, CHF (congestive heart failure), Acute renal insufficiency Primary Care Provider: Urbano Jimenez ED Provider: Geo Elizabeth Columbus Meds and New Rx's Prescriptions: Continued atorvastatin 40 mg tablet 40 mg PO QHS (DME) blood sugar diagnostic Strip 1 ea Miscellaneous BID Qty: 180 3RF Rx Instructions: test twice daily omeprazole 20 mg capsule,delayed release(DR/EC) 20 mg PO DAILY PRN (Reason: GERD) Qty: 90 3RF magnesium gluconate 500 mg tablet 1,000 mg PO TID Rx Instructions: Takes 1000 mg AM and PM, takes 500 mg Lunchtime. -hb aspirin [Adult Low Dose Aspirin] 81 mg tablet,delayed release (DR/EC) 81 mg PO DAILY (DME) OneTouch Ultra Blue Test Strip Strip See Rx Instructions .ROUTE .MEDSUPPLY Qty: 180 4RF Rx Instructions: test BID calcitriol 0.25 mcg capsule 0.5 mcg PO DAILY metoprolol succinate 25 mg tablet extended release 24 hr 25 mg PO DAILY (DME) blood-glucose meter 1 EACH misc 1 ea Miscellaneous DAILY Qty: 1 Rx Instructions: FOR ONE TOUCH ULTRA MINI Dx 250.00 No insulin (DME) lancets 1 EACH misc 1 ea Miscellaneous DAILY Qty: 100 Rx Instructions: FOR ONE TOUCH ULTRA MINI METER. NO INSULIN. DIAGNOSIS CODE 250.00 mycophenolate mofetil [CellCept] 250 MG capsule 250 mg PO BID ascorbic acid (vitamin C) [Vitamin C] 500 MG capsule, extended release 500 mg PO TID Centrum Silver 0.4-300-250 mg-mcg-mcg tablet 2 tab PO DAILY amlodipine 5 mg tablet 5 mg PO DAILY Qty: 90 3RF nitroglycerin 0.4 mg tablet, sublingual 0.4 mg SL Q5M PRN (Reason: chest pain) Qty: 10 0RF glipizide 10 mg tablet extended release 24hr 10 mg PO BID Qty: 180 3RF tacrolimus [Prograf] 1 mg capsule 3 mg PO DIRECTED Label Comments: 2-18 pt reports that currently he takes 2 tabs in the am and 1 tab in the pm. hb Rx Instructions: 2 in am and one in evening tamsulosin 0.4 mg capsule 0.4 mg PO DAILY Qty: 90 3RF levothyroxine 137 mcg tablet 137 mcg PO DAILY Qty: 90 3RF polyethylene glycol 3350 17 gram Powder In Packet 17 g PO DAILY PRN PRN (Reason: Constipation) Qty: 0 0RF hydralazine 100 mg tablet 100 mg PO BID Qty: 60 0RF Discharge Data Discharge Date/Time-TO BE ENTERED AT DEPARTURE: 01/30/22 16:40 Medical Decision Making <MCKINLEY Lee - Last Filed: 02/03/22 15:39> But patient is alert and oriented but appears chronically ill Initially he was notably bradycardic in the 50s, however he had several several second pauses on telemetry monitoring and was bradycardic in the 20s, patient was notably symptomatic at this time Cardiac pads were placed but will not administer atropine secondary to recent diagnosis of A. fib with RVR and inability to anticoagulate patient Patient with creatinine of 1.9 and a renal transplant patient that is increased from 1.5 on his last visit Magnesium of 1.5 which was supplemented with 1 g of mag Troponin wnl chest x-ray per radiologist did not show evidence of acute abnormality within normal limits BNP 5500 Exertional dyspnea noted with 1-2+ pitting edema bilaterally, will give 40 mg of Lasix discussed with our mortising machine operator for guidance, Dr. Del Toro who recommends discontinuing metoprolol and she will show keeping the visit with her in February Secondary to recurrent bradycardia and cardiac pause, I did consult with patient [facility] transplant team , Dr Lee and they are concerned for tachybradycardia syndrome and believes that the patient needs an emergent pacemaker, [facility] is at capacity, however they are making an exception for this patient he will be transferred to their facility today Patient is agreeable to transfer at this time His blood pressure has been stable, he feels any chest fully alert and oriented and full CODE STATUS and he would like case discussed with [place] Marcelino[place] [facility] [place] will confirm acceptance with Cardiology Spoke with Dr Reyes, mortising machine operator who has accepted [place] [facility] bed confirmation at 1520 Medical Records Medical records reviewed: Yes I reviewed the patient's medical records. Lab Data Lab results reviewed: Yes I reviewed the patient's lab results. <MCKINLEY Echevarria - Last Filed: 01/30/22 16:32> But patient is alert and oriented but appears chronically ill Initially he was notably bradycardic in the 50s, however he had several several second pauses on telemetry monitoring and was bradycardic in the 20s, patient was notably symptomatic at this time Cardiac pads were placed but will not administer atropine secondary to recent diagnosis of A. fib with RVR and inability to anticoagulate patient Patient with creatinine of 1.9 and a renal transplant patient that is increased from 1.5 on his last visit Magnesium of 1.5 which was supplemented with 1 g of mag Troponin wnl chest x-ray per radiologist did not show evidence of acute abnormality within normal limits BNP 5500 Exertional dyspnea noted with 1-2+ pitting edema bilaterally, will give 40 mg of Lasix discussed with our mortising machine operator for guidance, Dr. Del Toro who recommends discontinuing metoprolol and she will show keeping the visit with her in February Secondary to recurrent bradycardia and cardiac pause, I did consult with patient [facility] transplant team , Dr Lee and they are concerned for tachybradycardia syndrome and believes that the patient needs an emergent pacemaker, [facility] is at capacity, however they are making an exception for this patient he will be transferred to their facility today Patient is agreeable to transfer at this time His blood pressure has been stable, he feels any chest fully alert and oriented and full CODE STATUS and he would like case discussed with Dr Marcelino,[place] [facility] who will confirm acceptance with Cardiology Spoke with Dr Reyes, mortising machine operator who has accepted [place] [facility], pending bed confirmation at 1520 1530 Geo Elizabeth PA-C I assumed care of this 71-year-old gentleman from my colleague MCKINLEY Whitaker, please see her initial HPI and examination. At time of signout evaluation has already been completed, pending bed confirmation at [facility] into the service of cardiology. Patient personally evaluated by me and continues to have episodes of both bradycardia and tachycardia, but reports that he feels the same, denies any chest pain or syncopal episodes here in the ER. We received a call from [facility] transfer center at approximately 1600 stating that they did not fact have it as available for transfer. EMS contacted for transfer and were here at our facility at 1630 for transfer. All appropriate transfer paperwork has been signed prior to my involvement with the patient. This documentation was generated using [employer] dictation system, please disregard any oddities of phrase or misspellings. HPI <MCKINLEY Lee - Last Filed: 02/03/22 15:39> General Date/Time Provider Initiated Documentation: 01/30/22 10:38. HPI Narrative: This 71-year-old male presents with report of lightheadedness and shortness of breath for the past 4 days. He states that he felt generally unwell over the course of the past several weeks. He states this is his fourth emergency department visit for similar symptoms. He states on his first visit he presented after being diagnosed with atrial fibrillation and was started on medications which improved his rate but not his symptoms. He states that now his lightheadedness and palpitations are becoming worse. He has been taking his medication as prescribed. He denies any loss of consciousness. He denies any headache. He denies any strength or sensation changes or trauma. He is not reportedly anticoagulated as he had a subarachnoid hemorrhage a year ago while he was on Eliquis. He is status post renal transplant in September. His only new medication is metoprolol which has been taking as prescribed. He denies any dramatic change in symptoms today. He states he has an appointment with cardiology in February. He denies any cough, Related Data Home Medications Medication Instructions Recorded Confirmed blood-glucose meter #1 ea 09/27/14 01/23/22 lancets 28 gauge #100 ea 09/27/14 01/23/22 mycophenolate mofetil 250 mg 250 mg PO BID 04/15/16 01/30/22 capsule (CellCept) ascorbic acid (vitamin C) 500 mg 500 mg PO TID 09/05/16 01/30/22 capsule,extended release (Vitamin C) atorvastatin 40 mg tablet 40 mg PO QHS 03/04/19 01/30/22 blood sugar diagnostic #180 strips 03/04/19 01/23/22 omeprazole 20 mg capsule,delayed 20 mg PO DAILY PRN GERD #90 caps 06/17/19 01/30/22 release blood sugar diagnostic (OneTouch #180 ea 10/17/20 01/23/22 Ultra Blue Test Strip) [id number]-[id number]-[id number] acid 0.4 2 tab PO DAILY 01/16/21 01/30/22 mg-lycopene 300 mcg-lutein 250 mcg tablet (Centrum Silver) hydralazine 100 mg tablet 100 mg PO BID #60 tabs 03/01/21 01/30/22 polyethylene glycol 3350 17 gram 17 g PO DAILY PRN PRN Constipation 03/01/21 01/30/22 oral powder packet #0 ea calcitriol 0.25 mcg capsule 0.5 mcg PO DAILY 04/10/21 01/30/22 magnesium gluconate 500 mg tablet 1,000 mg PO TID 04/23/21 01/30/22 amlodipine 5 mg tablet 5 mg PO DAILY #90 tabs 05/28/21 01/30/22 nitroglycerin 0.4 mg sublingual 0.4 mg sublingual Q5M PRN chest 11/01/21 01/30/22 tablet pain #10 tabs glipizide 10 mg tablet, extended 10 mg PO BID #180 tabs 11/26/21 01/30/22 release 24 hr aspirin 81 mg tablet,delayed 81 mg PO DAILY 12/26/21 01/30/22 release (Adult Low Dose Aspirin) tacrolimus 1 mg capsule, 3 mg PO DIRECTED 01/13/22 01/30/22 immediate-release (Prograf) metoprolol succinate 25 mg 25 mg PO DAILY 01/21/22 01/30/22 tablet,extended release 24 hr levothyroxine 137 mcg tablet 137 mcg PO DAILY #90 tab-caps 01/23/22 01/30/22 tamsulosin 0.4 mg capsule 0.4 mg PO DAILY #90 tab-caps 01/23/22 01/30/22 Previous Rx's Medication Instructions Recorded blood sugar diagnostic #180 strips 03/04/19 omeprazole 20 mg capsule,delayed 20 mg PO DAILY PRN GERD #90 caps 06/17/19 release blood sugar diagnostic (OneTouch #180 ea 10/17/20 Ultra Blue Test Strip) hydralazine 100 mg tablet 100 mg PO BID #60 tabs 03/01/21 polyethylene glycol 3350 17 gram 17 g PO DAILY PRN PRN Constipation 03/01/21 oral powder packet #0 ea amlodipine 5 mg tablet 5 mg PO DAILY #90 tabs 05/28/21 nitroglycerin 0.4 mg sublingual 0.4 mg sublingual Q5M PRN chest 11/01/21 tablet pain #10 tabs glipizide 10 mg tablet, extended 10 mg PO BID #180 tabs 11/26/21 release 24 hr levothyroxine 137 mcg tablet 137 mcg PO DAILY #90 tab-caps 01/23/22 tamsulosin 0.4 mg capsule 0.4 mg PO DAILY #90 tab-caps 01/23/22 Allergies Allergy/AdvReac Type Severity Reaction Status Date / Time strawberry Allergy Unknown Other (See Verified 01/30/22 10:34 Comment) General Stated Complaint: Dizzy/Sync ALICIA: 3 Review of Systems <MCKINLEY Lee - Last Filed: 02/03/22 15:39> All systems reviewed & are unremarkable except as noted in HPI and below PFSH <MCKINLEY Lee - Last Filed: 02/03/22 15:39> All Active Problems Tachy-sakina syndrome (Acute) CHF (congestive heart failure) (Chronic) Acute renal insufficiency (Acute) Generalized weakness (Acute) Dizziness (Acute) Osteoarthritis of left knee (Acute) Parkinsonism (Acute) Tremor (Acute) Acute diverticulitis (Acute) - confirmed by CT , inpt at [facility] Bradycardia (Acute) Vasogenic edema (Acute) Hypertension (Chronic) Hiccups (Acute) 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, [place] [facility] antico[place] stopped Altered mental status (Acute) Hypertensive retinopathy (Acute ~09/27/20) SH[place]E 09/27/20- MILD TO MODERATE-KB Spinal stenosis (Acute) L5-S1 Subsequent non-ST elevation (NSTEMI) myocardial infarction within 4 weeks of initial infarction (Acute) stents History of arthroscopy of knee (Acute) History of biopsy (Acute) Perirectal abscess (Acute) Status post rotator cuff repair (Acute) Postoperative stiffness of total knee replacement (Chronic) Olecranon bursitis, left elbow (Chronic) Arthritis of left elbow (Acute) Tubular adenoma (Acute 09/12/15) 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 Microscopic hematuria (Acute 05/21/12) [place] [facility] 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 Need dialysis or transplant. 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 s/p hernia repair b. s/p knee arthroscopy c. s/p unspecified shoulder surgery d. s/p vasectomy Medical History (Updated 01/30/22 @ 13:27 by MCKINLEY Lee) Atrial fibrillation BPH (benign prostatic hyperplasia) CHF (congestive heart failure) Chronic kidney disease CVA (cerebral vascular accident) Diabetes Fistula GERD (gastroesophageal reflux disease) Hepatitis C Treated and cured HTN (hypertension) Hyperlipemia Hypothyroidism Myocardial infarction Obstructive sleep apnea Surgical History Arthroplasty of knee 2006-right BIOPSY, KIDNEY (10/16/14[place] [facility] [facility] [place] H/O bladder repair surgery H/O vasectomy History of hernia repair KIDNEY TRANSPLANT (09/16/15) [facility] Rotator Cuff Repair left Family History Mother Essential hypertension Father Myocardial infarction Stroke Brother Essential hypertension Neoplasm Social History (Updated 01/03/22 @ 14:44 by Germaine Guillaume) Smoking/Tobacco Use Status: Current-Occasional Tobacco Type: cigars Tobacco: How many years used: 20 Smoking risk assessment performed?: Yes Alcohol Intake: never Drug use: Occasionally Substance use type: marijuana Adopted: No Caregiver/Support person: Yes Foster care: No Household members: spouse Housing: house Number of Children: 2 number of grandchildren: 1 Communication Needs: None Education Level: high school 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 Pets and animals: Yes Pets and animals: dog(s) Sexually active: No Do you think of yourself as: straight/heterosexual Current gender identity: male What is your relationship status?: How often do you talk on the phone with friends or family?: three or more times per week Do you belong to any clubs or organized social groups?: no Panel score (0-1 are the most socially isolated patients): 2 Idalia/Yazidi: None Special idalia needs: No Seatbelt use: always Helmet use: Yes Helmet use: always Drive intox or ride w/intox form setter/driver: No Do you feel safe at home: Yes Do you feel safe in your relationship?: Yes Exam <MCKINLEY Lee - Last Filed: 02/03/22 15:39> Const General: cooperative and ill appearing HENKS Mouth: oral mucosae normal Eyes Pupils: PERRL Resp Effort & Inspection: normal respiratory effort Auscultation: clear to auscultation bilaterally Cardio Rate: bradycardic and tachycardic Rhythm: abnormal rhythm Heart Sounds: no murmurs GI Inspection: normal to inspection Skin General skin exam: no rashes or lesions noted Neuro General: patient alert and patient oriented x3 Course <MCKINLEY Lee Last Filed: 02/03/22 15:39> Vital Signs Vital signs: Vital Signs Pulse 57 L 01/30/22 10:29 Respiratory Rate 14 01/30/22 10:29 Blood Pressure 120/70 01/30/22 10:29 Pulse Oximetry 94 01/30/22 10:29 Pulse 68 01/30/22 12:16 Pulse 69 01/30/22 12:16 Respiratory Rate 20 01/30/22 12:16 Respiratory Effort Non-Labored 01/30/22 10:37 Respiratory Depth Normal 01/30/22 10:37 Respiratory Pattern Normal 01/30/22 10:37 Blood Pressure 119/73 01/30/22 12:16 Blood Pressure Mean 84 01/30/22 12:16 Blood Pressure Position Supine 01/30/22 10:29 Pulse Oximetry 91 L 01/30/22 12:16 Oxygen Delivery Method Room Air 01/30/22 10:29 Oxygen Flow Rate 0 01/30/22 10:29 Pain Level 0 01/30/22 10:29 Lab/Test Results Lab/Test Results: Laboratory Tests Range/Units 01/30/22 01/30/22 01/30/22 10:49 10:49 10:49 WBC (4.4-10.8) 10^3/uL 10.35 RBC (4.36-5.78) 10^6/uL 5.01 Hgb (13.5-17.5) g/dL 15.3 Hct (40.0-50.0) % 45.4 MCV (80-95) fL 91 MCH (27.0-33.0) pg 30.5 MCHC (32.0-36.0) % 33.7 RDW (11.8-14.1) % 13.2 Plt Count (130-400) 10^3/uL 265 MPV (8.0-11.0) fL 9.7 Immature Gran % 0.5 Neutrophils % 74.7 Lymphocytes % 14.8 Monocytes % 7.1 Eosinophils % 2.4 Basophils % 0.5 Nucleated RBC % (0.0-0.3) % 0.0 Absolute Neutrophils (1.2-6.7) 10^3/uL 7.73 H Absolute Lymphocytes (1.2-3.4) 10^3/uL 1.53 Absolute Monocytes (0.1-0.8) 10^3/uL 0.74 Absolute Eosinophils (0.0-0.7) 10^3/uL 0.25 Absolute Basophils (0.0-0.2) 10^3/uL 0.05 Sodium (136-145) mmol/L 139 Potassium (3.5-5.1) mmol/L 3.7 Chloride (98-107) mmol/L 104 Carbon Dioxide (21.0-32.0) mmol/L 27.9 Anion Gap (3-11) mmol/L 7.1 BUN (7-18) mg/dL 25 H Creatinine (0.70-1.30) mg/dL 1.9 H Estimated GFR/1.73 m2 (mL/min/1.73m2) 34.92 Glucose (74-106) mg/dL 185 H Calcium (8.5-10.1) mg/dL 9.5 Magnesium (1.8-2.4) mg/dL 1.5 L Total Bilirubin (0.2-1.0) mg/dL 2.4 H AST (15-37) U/L 17 ALT (16-63) U/L 29 Alkaline Phosphatase (46-116) U/L 67 Troponin I (<or=60) ng/L < 50 NT-Pro-B Natriuret Pep (<300) pg/mL 5446 H Total Protein (6.4-8.2) g/dL 6.9 Albumin (3.4-5.0) g/dL 3.3 L TSH (0.36-3.74) uIU/mL COVID-19 Source Range/Units 01/30/22 01/30/22 10:49 11:25 WBC (4.4-10.8) 10^3/uL RBC (4.36-5.78) 10^6/uL Hgb (13.5-17.5) g/dL Hct (40.0-50.0) % MCV (80-95) fL MCH (27.0-33.0) pg MCHC (32.0-36.0) % RDW (11.8-14.1) % Plt Count (130-400) 10^3/uL MPV (8.0-11.0) fL Immature Gran % Neutrophils % Lymphocytes % Monocytes % Eosinophils % Basophils % Nucleated RBC % (0.0-0.3) % Absolute Neutrophils (1.2-6.7) 10^3/uL Absolute Lymphocytes (1.2-3.4) 10^3/uL Absolute Monocytes (0.1-0.8) 10^3/uL Absolute Eosinophils (0.0-0.7) 10^3/uL Absolute Basophils (0.0-0.2) 10^3/uL Sodium (136-145) mmol/L Potassium (3.5-5.1) mmol/L Chloride (98-107) mmol/L Carbon Dioxide (21.0-32.0) mmol/L Anion Gap (3-11) mmol/L BUN (7-18) mg/dL Creatinine (0.70-1.30) mg/dL Estimated GFR/1.73 m2 (mL/min/1.73m2) Glucose (74-106) mg/dL Calcium (8.5-10.1) mg/dL Magnesium (1.8-2.4) mg/dL Total Bilirubin (0.2-1.0) mg/dL AST (15-37) U/L ALT (16-63) U/L Alkaline Phosphatase (46-116) U/L Troponin I (<or=60) ng/L NT-Pro-B Natriuret Pep (<300) pg/mL Total Protein (6.4-8.2) g/dL Albumin (3.4-5.0) g/dL TSH (0.36-3.74) uIU/mL 3.08 COVID-19 Source Nasal/Nares Sign Out <MCKINLEY Lee - Last Filed: 02/03/22 15:39> Sign Out Data: Sign Out Comment: pending [place] [facility] dysrhythmia (tachybrady syndrome, chf, ckd full code Last updated by Rosetta Whitaker PA at 01/30/22 15:29
[2022-01-30] MEDS: MAGNESIUM SULFATE 1 GM/100 ML BAG IVPB (12:45)
[2022-01-30 13:59] LABS: Bilirubin Negative (Negative); Blood Negative (Negative); Clarity Clear (Clear); Glucose Negative (Negative); Ketones Negative (Negative); Leukocyte Esterase Negative (Negative); Nitrite Negative (Negative); Urobilinogen 0.2 EU/dL (Up TO 0.2)
[2022-01-30 14:08] LABS: Bacteria Negative HPF (Negative); C & S Indicated? No; Casts 10-20 Hyaline LPF (Negative); Crystals Negative HPF (Negative); Epithelial Cells Rare HPF (Negative); Mucus Trace (Negative); RBC Negative HPF (0-2); WBC Negative HPF (0-5)
[2022-01-31 14:01] LABS: Tacrolimus 13.4 ng/mL (See Note)
== END 2022-01-30 16:40 | disposition short-term general hospital (02) ==
PROVIDERS: Physician Assistant; Emergency Provider Physician Assistant; PCP Family Medicine
DX: I13.0 Hypertensive heart and chronic kidney disease with heart failure and stage 1 through stage 4 chronic kidney disease, or unspecified chronic kidney disease (principal); E11.22 Type 2 diabetes mellitus with diabetic chronic kidney disease; I50.9 Heart failure, unspecified; N18.9 Chronic kidney disease, unspecified; I49.5 Sick sinus syndrome; I48.91 Unspecified atrial fibrillation; I25.2 Old myocardial infarction; F17.290 Nicotine dependence, other tobacco product, uncomplicated; Z86.73 Personal history of transient ischemic attack (TIA), and cerebral infarction without residual deficits; Z20.822 Contact with and (suspected) exposure to COVID-19
CPT/HCPCS: 36416; 80053; 80197; 82962; 87635; 93005; 96361; 96365; 99285; 71045; 81003; 81015; 83735; 83880; 84443; 84484; 85025; 93010; J1940; J3475

== ENCOUNTER 2022-02-16 11:15 | Emergency (ER) | payer MEDICARE, SELFPAY ==
--- NOTE | 2022-02-16 11:15 | RT.EKG_ITS ---
APPROVED REPORT Exam: Resting ECG Reason for Exam: shortness of breath Patient Location: E HR:63 bpm ECG Measurements Heart Rate 63 AXIS WA [id number] P [id number] QRSd 118 QRS -66 QT 409 T -78 QTc 420 Conclusion Underlying afib, V paced left ventricular hypertrophy Nonspecific T abnormalities, inferior leads.
[2022-02-16 11:27] VITALS: BP 120/65; PULSE 65; RESP 18; TEMP 36.3; O2SAT 97
[2022-02-16 11:50] VITALS: RESP 18
--- NOTE | 2022-02-16 12:00 | DI.RAD_ITS ---
Exam(s) XR PORTABLE CHEST AP EXAM: XR PORTABLE CHEST AP CLINICAL HISTORY: recent pacemaker placement, fatigue TECHNIQUE: 2D digital imaging was performed. COMPARISON: CR XR PORTABLE CHEST AP from 01/30/2022 FINDINGS: LUNGS: Clear. No pleural abnormality seen. HEART: Stable enlargement. Pacemaker. AORTA: Normal. BONES: Degenerative changes in the shoulders and spine. Soft tissues: Unremarkable. IMPRESSION: Cardiomegaly. No acute findings. DATA REPOSITORY: RADIATION DOSE DELIVERED:
--- NOTE | 2022-02-16 12:11 | W.ED.GENAD ---
Discharge Plan Disposition Patient Disposition: HOME Condition: Stable Discharge Details Clinical Impression: Fatigue Primary Care Provider: Urbano Jimenez ED Provider: Rolando Hodges Home Meds and New Rx's Prescriptions: New metoprolol succinate 50 mg tablet extended release 24 hr 50 mg PO BID 30 Days Qty: 60 0RF No Action atorvastatin 40 mg tablet 40 mg PO QHS (DME) blood sugar diagnostic Strip 1 ea Miscellaneous BID Qty: 180 3RF Rx Instructions: test twice daily omeprazole 20 mg capsule,delayed release(DR/EC) 20 mg PO DAILY PRN (Reason: GERD) Qty: 90 3RF magnesium gluconate 500 mg tablet 1,000 mg PO TID Rx Instructions: Takes 1000 mg AM and PM, takes 500 mg Lunchtime. -hb aspirin [Adult Low Dose Aspirin] 81 mg tablet,delayed release (DR/EC) 81 mg PO DAILY (DME) OneTouch Ultra Blue Test Strip Strip See Rx Instructions .ROUTE .MEDSUPPLY Qty: 180 4RF Rx Instructions: test BID calcitriol 0.25 mcg capsule 0.5 mcg PO DAILY metoprolol succinate 25 mg tablet extended release 24 hr 50 mg PO DAILY (DME) blood-glucose meter 1 EACH misc 1 ea Miscellaneous DAILY Qty: 1 Rx Instructions: FOR ONE TOUCH ULTRA MINI Dx 250.00 No insulin (DME) lancets 1 EACH misc 1 ea Miscellaneous DAILY Qty: 100 Rx Instructions: FOR ONE TOUCH ULTRA MINI METER. NO INSULIN. DIAGNOSIS CODE 250.00 mycophenolate mofetil [CellCept] 250 MG capsule 250 mg PO BID ascorbic acid (vitamin C) [Vitamin C] 500 MG capsule, extended release 500 mg PO TID Centrum Silver 0.4-300-250 mg-mcg-mcg tablet 2 tab PO DAILY amlodipine 5 mg tablet 5 mg PO DAILY Qty: 90 3RF nitroglycerin 0.4 mg tablet, sublingual 0.4 mg SL Q5M PRN (Reason: chest pain) Qty: 10 0RF glipizide 10 mg tablet extended release 24hr 10 mg PO BID Qty: 180 3RF tacrolimus [Prograf] 1 mg capsule 3 mg PO DIRECTED Label Comments: 2-18 pt reports that currently he takes 2 tabs in the am and 1 tab in the pm. hb Rx Instructions: 2 in am and one in evening levothyroxine 137 mcg tablet 137 mcg PO DAILY Qty: 90 3RF tamsulosin 0.4 mg capsule 0.4 mg PO DAILY Qty: 90 3RF polyethylene glycol 3350 17 gram Powder In Packet 17 g PO DAILY PRN PRN (Reason: Constipation) Qty: 0 0RF hydralazine 100 mg tablet 100 mg PO BID Qty: 60 0RF Discharge Instructions Instructions: A-fib (Atrial Fibrillation) (ED) Additional Instructions: Please follow-up at the electrophysiology clinic at [facility] at next available appointment. Please return to the emergency department for any worsening symptoms such as chest pain shortness of breath nausea sweating fatigue feeling faint or passing out or other abnormal symptoms Medical Decision Making 71-year-old male history of diabetes stroke hypertension CHF A. fib, recent pacemaker placement 2 weeks ago at [facility] presents with generalized fatigue over the past 1 to 2 weeks, denies chest pain or shortness of breath just low energy, no peripheral edema, resting comfortably no respiratory symptoms at this time, hemodynamically stable, EKG showing paced rhythm however intermittently patient will have cabazon beats and paced beats with a different morphology, bedside ultrasound showing slightly reduced ejection fraction, mild to moderate pericardial effusion without evidence of tamponade, also small hypoechoic pocket surrounding subcutaneous pacemaker, no warmth induration or tenderness to pacemaker site. Consider migrating pacemaker leads versus malfunctioning pacemaker versus electrolyte abnormality versus ACS versus less likely myopericarditis versus unlikely PE or aortic pathology. Screening labs imaging device interrogation. Will contact [facility] cardiology. 14: 28 patient resting comfortably no acute distress. [employer] interrogation showing intermittent A. fib RVR to the rates of 120s to 125 over the past 24 hours. Discussed case with on-call supervisor wash house Dr. Chang at [facility] who reviewed patient's history labs and [employer] findings. Cardiology suggesting increasing metoprolol to 50 mg twice daily and they will have him follow-up closely at electrophysiology clinic. Home care instructions and return precautions given to family. HPI General Date/Time Provider Initiated Documentation: 02/16/22 11:16. HPI Narrative: 71-year-old male recent placement of pacemaker, history of A. fib, presents with general fatigue over the last 1 to 2 weeks, is 2 weeks out from pacemaker placement. Denies chest pain or shortness of breath just decreased energy. Follows at [facility]. Denies leg swelling or pain Related Data Home Medications Medication Instructions Recorded Confirmed blood-glucose meter #1 ea 09/27/14 02/16/22 lancets 28 gauge #100 ea 09/27/14 02/16/22 mycophenolate mofetil 250 mg 250 mg PO BID 04/15/16 02/16/22 capsule (CellCept) ascorbic acid (vitamin C) 500 mg 500 mg PO TID 09/05/16 02/16/22 capsule,extended release (Vitamin C) atorvastatin 40 mg tablet 40 mg PO QHS 03/04/19 02/16/22 blood sugar diagnostic #180 strips 03/04/19 02/16/22 omeprazole 20 mg capsule,delayed 20 mg PO DAILY PRN GERD #90 caps 06/17/19 02/16/22 release blood sugar diagnostic (OneTouch #180 ea 10/17/20 02/16/22 Ultra Blue Test Strip) mdthoiaq-dwg-ozcgl acid 0.4 2 tab PO DAILY 01/16/21 02/16/22 mg-lycopene 300 mcg-lutein 250 mcg tablet (Centrum Silver) hydralazine 100 mg tablet 100 mg PO BID #60 tabs 03/01/21 02/16/22 polyethylene glycol 3350 17 gram 17 g PO DAILY PRN PRN Constipation 03/01/21 02/16/22 oral powder packet #0 ea calcitriol 0.25 mcg capsule 0.5 mcg PO DAILY 04/10/21 02/16/22 magnesium gluconate 500 mg tablet 1,000 mg PO TID 04/23/21 02/16/22 amlodipine 5 mg tablet 5 mg PO DAILY #90 tabs 05/28/21 02/16/22 nitroglycerin 0.4 mg sublingual 0.4 mg sublingual Q5M PRN chest 11/01/21 02/16/22 tablet pain #10 tabs glipizide 10 mg tablet, extended 10 mg PO BID #180 tabs 11/26/21 02/16/22 release 24 hr aspirin 81 mg tablet,delayed 81 mg PO DAILY 12/26/21 02/16/22 release (Adult Low Dose Aspirin) tacrolimus 1 mg capsule, 3 mg PO DIRECTED 01/13/22 02/16/22 immediate-release (Prograf) metoprolol succinate 25 mg 50 mg PO DAILY 01/21/22 02/16/22 tablet,extended release 24 hr levothyroxine 137 mcg tablet 137 mcg PO DAILY #90 tab-caps 01/23/22 02/16/22 tamsulosin 0.4 mg capsule 0.4 mg PO DAILY #90 tab-caps 02/13/22 02/16/22 metoprolol succinate 50 mg 50 mg PO BID 30 days #60 tabs 02/16/22 tablet,extended release 24 hr Previous Rx's Medication Instructions Recorded blood sugar diagnostic #180 strips 03/04/19 omeprazole 20 mg capsule,delayed 20 mg PO DAILY PRN GERD #90 caps 06/17/19 release blood sugar diagnostic (OneTouch #180 ea 10/17/20 Ultra Blue Test Strip) hydralazine 100 mg tablet 100 mg PO BID #60 tabs 03/01/21 polyethylene glycol 3350 17 gram 17 g PO DAILY PRN PRN Constipation 03/01/21 oral powder packet #0 ea amlodipine 5 mg tablet 5 mg PO DAILY #90 tabs 05/28/21 nitroglycerin 0.4 mg sublingual 0.4 mg sublingual Q5M PRN chest 11/01/21 tablet pain #10 tabs glipizide 10 mg tablet, extended 10 mg PO BID #180 tabs 11/26/21 release 24 hr levothyroxine 137 mcg tablet 137 mcg PO DAILY #90 tab-caps 01/23/22 tamsulosin 0.4 mg capsule 0.4 mg PO DAILY #90 tab-caps 02/13/22 metoprolol succinate 50 mg 50 mg PO BID 30 days #60 tabs 02/16/22 tablet,extended release 24 hr Allergies Allergy/AdvReac Type Severity Reaction Status Date / Time strawberry Allergy Unknown Other (See Verified 01/30/22 10:34 Comment) General Stated Complaint: GenMedical ALICIA: 3 Review of Systems Narrative: Review of Systems Constitutional: Fatigue Eyes: negative ENT: negative Cardiovascular: negative Respiratory: negative Gastrointestinal: negative : negative Musculoskeletal: negative Skin: negative Neurologic: negative Psych: negative PFSH All Active Problems Tachy-sakina syndrome (Acute) CHF (congestive heart failure) (Chronic) Acute renal insufficiency (Acute) Fatigue (Acute) Osteoarthritis of left knee (Acute) Parkinsonism (Acute) Tremor (Acute) Acute diverticulitis (Acute) [address]- confirmed by CT , inpt at [facility] Bradycardia (Acute) Vasogenic edema (Acute) Hypertension (Chronic) Hiccups (Acute) 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, tx at [facility] [place], anticoagulant stopped Altered mental status (Acute) Hypertensive retinopathy (Acute ~09/27/20) [place] 09/27/20- MILD TO MODERATE-KB Spinal stenosis (Acute) L5-S1 Subsequent non-ST elevation (NSTEMI) myocardial infarction within 4 weeks of initial infarction (Acute) stents History of arthroscopy of knee (Acute) History of biopsy (Acute) Perirectal abscess (Acute) Status post rotator cuff repair (Acute) Postoperative stiffness of total knee replacement (Chronic) Olecranon bursitis, left elbow (Chronic) Arthritis of left elbow (Acute) Tubular adenoma (Acute 09/12/15) 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 Microscopic hematuria (Acute 05/21/12) neg workup [facility] [place]. 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 Need dialysis or transplant. 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 s/p hernia repair b. s/p knee arthroscopy c. s/p unspecified shoulder surgery d. s/p vasectomy Medical History (Updated 02/16/22 @ 14:30 by Rolando Hodges MD) Atrial fibrillation BPH (benign prostatic hyperplasia) CHF (congestive heart failure) Chronic kidney disease CVA (cerebral vascular accident) Diabetes Fistula GERD (gastroesophageal reflux disease) Hepatitis C Treated and cured HTN (hypertension) Hyperlipemia Hypothyroidism Myocardial infarction Obstructive sleep apnea Surgical History Arthroplasty of knee 2006-right BIOPSY, KIDNEY (10/16/14) [facility] [place]-RIGHT Colonoscopy - MAC 2008 H/O bladder repair surgery H/O vasectomy History of hernia repair KIDNEY TRANSPLANT (09/16/15) [facility] [place]-09/16/15 Rotator Cuff Repair left Family History Mother Essential hypertension Father Myocardial infarction Stroke Brother Essential hypertension Neoplasm Social History (Updated 01/03/22 @ 14:44 by Germaine Guillaume) Smoking/Tobacco Use Status: Current-Occasional Tobacco Type: cigars Tobacco: How many years used: 20 Smoking risk assessment performed?: Yes Alcohol Intake: never Drug use: Occasionally Substance use type: marijuana Adopted: No Caregiver/Support person: Yes Foster care: No Household members: spouse Housing: house Number of Children: 2 number of grandchildren: 1 Communication Needs: None Education Level: high school 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 Pets and animals: Yes Pets and animals: dog(s) Sexually active: No Do you think of yourself as: straight/heterosexual Current gender identity: male What is your relationship status?: How often do you talk on the phone with friends or family?: three or more times per week Do you belong to any clubs or organized social groups?: no Panel score (0-1 are the most socially isolated patients): 2 Idalia/Cheondoism: None Special idalia needs: No Seatbelt use: always Helmet use: Yes Helmet use: always Drive intox or ride w/intox bulk tank driver: No Do you feel safe at home: Yes Do you feel safe in your relationship?: Yes Exam Narrative Exam Narrative: Physical Examination General: alert, awake, cooperative, resting comfortably, no acute distress HEENT: normocephalic, atraumatic; PERRL, EOM intact, conjunctiva normal; no nasal discharge; moist mucous membranes, oral and pharyngeal mucosa normal, tolerating secretions Neck: supple, trachea midline; full ROM Chest: normal to inspection Respiratory: normal respiratory effort, speaking in full sentences, clear to auscultation, no wheezing, rales or rhonchi Cardiac: regular rate, regular rhythm, S1S2 intact, no murmurs rubs or gallops GI: abdomen soft, non-tender, non-distended; no palpable mass or hepatosplenomegaly Skin: no lesions, rashes or trauma appreciated Neuro: AAOx3, normal speech, moving all extremities Extremities: No peripheral edema Psych: Appropriate mood and affect Course Vital Signs Vital signs: Vital Signs Temperature 36.3 C L 02/16/22 11:27 Pulse 65 02/16/22 11:27 Respiratory Rate 18 02/16/22 11:27 Blood Pressure 120/65 02/16/22 11:27 Pulse Oximetry 97 02/16/22 11:27 Temperature 36.3 C L 02/16/22 11:27 Temperature Source Temporal Artery Scan 02/16/22 11:27 Pulse 65 02/16/22 11:27 Respiratory Rate 18 02/16/22 11:50 Respiratory Effort Non-Labored 02/16/22 11:50 Respiratory Depth Normal 02/16/22 11:50 Respiratory Pattern Normal 02/16/22 11:50 Blood Pressure 120/65 02/16/22 11:27 Blood Pressure Position Sitting 02/16/22 11:27 Pulse Oximetry 97 02/16/22 11:27 Oxygen Delivery Method Room Air 02/16/22 11:27 Oxygen Flow Rate 0 02/16/22 11:27
[2022-02-16] MEDS: Normal Saline 500 ML 1000 ML IV (12:21)
[2022-02-16 12:25] LABS: Abs Immature Grans 0.03 10^3/uL (0.0-0.06); Absolute Basophil Count 0.09 10^3/uL (0.0-0.2); Absolute Eosinophil Count 0.59 10^3/uL (0.0-0.7); Absolute Lymphocyte Count 1.71 10^3/uL (1.2-3.4); Absolute Monocyte Count 0.69 10^3/uL (0.1-0.8); Absolute Neutrophil Count 6.11 10^3/uL (1.2-6.7); Eosinophils % 6.4; HCT 42.9 % (40.0-50.0); HGB 14.6 g/dL (13.5-17.5); Immature Grans % 0.3; Lymphocytes % 18.5; MCH 30.3 pg (27.0-33.0); MCV 89 fL (80-95); MPV 9.1 fL (8.0-11.0); Monocytes % 7.5; Neutrophils % 66.3; Platelet Count 253 10^3/uL (130-400); RBC 4.82 10^6/uL (4.36-5.78); RDW 12.7 % (11.8-14.1); RDW-SD 41.5 fL; WBC 9.22 10^3/uL (4.4-10.8)
[2022-02-16 12:39] LABS: INR 1.1 (0.9-1.1); PTT Activated 23.2 sec (21.0-27.5); Prothrombin Time 11.4 sec (9.3-11.0)
[2022-02-16 12:45] LABS: ALT 32 U/L (16-63); AST 22 U/L (15-37); Albumin 3.1 g/dL (3.4-5.0); Alkaline Phosphatase 70 U/L (46-116); Anion Gap 6.4 mmol/L (3-11); BUN 20 mg/dL (7-18); Bilirubin, Total 2.4 mg/dL (0.2-1.0); CO2 30.6 mmol/L (21.0-32.0); CREATININE 1.6 mg/dL (0.70-1.30); Calcium 9.1 mg/dL (8.5-10.1); Chloride 104 mmol/L (98-107); Estimated GFR 42.58 (mL/min/1.73m2); Glucose 177 mg/dL (74-106); Magnesium 1.4 mg/dL (1.8-2.4); NT-proBNP 3502 pg/mL (<300); Potassium 3.5 mmol/L (3.5-5.1); Sodium 141 mmol/L (136-145); Total Protein 6.9 g/dL (6.4-8.2); Troponin I < 50 ng/L (<or=60)
--- NOTE | 2022-02-16 13:13 | DI.VRAD_ITS ---
PROCEDURE INFORMATION: Exam: XR Chest Exam date and time: 02/16/2022 12:17 PM Age: 71 years old Clinical indication: Other: Recent pacemaker placement, fatigue TECHNIQUE: Imaging protocol: Radiologic exam of the chest. Views: 1 view. COMPARISON: CR XR PORTABLE CHEST AP 01/30/2022 11:32 AM FINDINGS: Tubes, catheters and devices: There is a new right-sided pacemaker. Lungs: There is no new airspace consolidation or CHF Pleural spaces: A large pleural effusion, or pneumothorax is not seen Heart/Mediastinum: Heart, mediastinum are unchanged. Bones/joints: There is no new bony abnormality. Degenerative changes are seen in the spine IMPRESSION: New right-sided pacemaker. No acute findings Dictated and Authenticated by: Isabel Lucio MD. Ordering:JACK Marshall MD
[2022-02-16 14:31] VITALS: BP 128/82; PULSE 65; RESP 18; TEMP 36.8; O2SAT 97
== END 2022-02-16 14:42 | disposition home or self-care (01) ==
PROVIDERS: Emergency Provider Emergency Medicine; PCP Family Medicine
DX: R53.83 Other fatigue (principal); R42 Dizziness and giddiness; R06.02 Shortness of breath; Z95.0 Presence of cardiac pacemaker
CPT/HCPCS: 36415; 80053; 93005; 96360; 99284; 71045; 83735; 83880; 84484; 85025; 85610; 85730; 93010; 99283

== ENCOUNTER 2022-04-07 04:23 | Outpatient (CLI) | payer MEDICARE, SELFPAY ==
[2022-04-07 13:15] LABS: Vitamin B12 896 pg/mL (193-986)
== END 2022-04-07 04:24 | disposition home or self-care (01) ==
LOC: LOS 04:23
PROVIDERS: PCP Family Medicine; Visit Provider Psychiatry & Neurology Neurology
DX: R41.9 Unspecified symptoms and signs involving cognitive functions and awareness (principal); R25.1 Tremor, unspecified; I63.89 Other cerebral infarction
CPT/HCPCS: 36415; 82607

== ENCOUNTER → 2022-05-27 11:07 | Outpatient (BNVA) | payer MEDICARE, SELFPAY | PROVIDERS: PCP Family Medicine; Referring Provider Family Medicine; Visit Provider Psychiatry & Neurology Neurology | DX: Z09 Encounter for follow-up examination after completed treatment for conditions other than malignant neoplasm (principal); Z86.73 Personal history of transient ischemic attack (TIA), and cerebral infarction without residual deficits; Z79.01 Long term (current) use of anticoagulants; I48.91 Unspecified atrial fibrillation; I10 Essential (primary) hypertension; Z95.0 Presence of cardiac pacemaker; G20 Parkinson's disease; R06.6 Hiccough | CPT/HCPCS: 99215 ==

== ENCOUNTER 2022-07-24 04:06 | Outpatient (CLI) | payer MEDICARE, SELFPAY ==
[2022-07-24 12:05] LABS: Abs Immature Grans 0.02 10^3/uL (0.0-0.06); Absolute Basophil Count 0.08 10^3/uL (0.0-0.2); Absolute Eosinophil Count 0.27 10^3/uL (0.0-0.7); Absolute Monocyte Count 0.66 10^3/uL (0.1-0.8); Absolute Neutrophil Count 4.98 10^3/uL (1.2-6.7); Basophils % 1.1; Eosinophils % 3.6; HCT 43.5 % (40.0-50.0); HGB 14.8 g/dL (13.5-17.5); Immature Grans % 0.3; MCH 29.8 pg (27.0-33.0); MCV 88 fL (80-95); MPV 9.8 fL (8.0-11.0); Monocytes % 8.8; Neutrophils % 66.2; Platelet Count 235 10^3/uL (130-400); RBC 4.97 10^6/uL (4.36-5.78); RDW 13.4 % (11.8-14.1); RDW-SD 42.7 fL; WBC 7.51 10^3/uL (4.4-10.8)
[2022-07-24 12:45] LABS: ALT 29 U/L (16-63); AST 22 U/L (15-37); Albumin 3.6 g/dL (3.4-5.0); Alkaline Phosphatase 88 U/L (46-116); Anion Gap 6.6 mmol/L (3-11); BUN 19 mg/dL (7-18); Bilirubin, Total 2.3 mg/dL (0.2-1.0); CO2 30.4 mmol/L (21.0-32.0); CREATININE 1.5 mg/dL (0.70-1.30); Calcium 10.1 mg/dL (8.5-10.1); Chloride 104 mmol/L (98-107); Estimated GFR 48.85 (mL/min/1.73m2); Glucose 197 mg/dL (74-106); Potassium 3.8 mmol/L (3.5-5.1); Sodium 141 mmol/L (136-145); TSH (W/Ref FT4) 2.38 uIU/mL (0.36-3.74)
== END 2022-07-24 04:07 | disposition home or self-care (01) ==
LOC: LBO 04:06
PROVIDERS: PCP Family Medicine; Visit Provider Family Medicine
DX: R53.83 Other fatigue (principal); I10 Essential (primary) hypertension; E03.9 Hypothyroidism, unspecified; E11.9 Type 2 diabetes mellitus without complications
CPT/HCPCS: 36415; 80053; 84443; 85025

== ENCOUNTER 2022-08-20 08:14 | Outpatient (CLI) | payer MEDICARE, SELFPAY ==
--- NOTE | 2022-08-20 08:00 | RT.EKG_ITS ---
APPROVED REPORT Exam: Resting ECG Reason for Exam: afib Patient Location: O HR:70 bpm ECG Measurements Heart Rate 70 AXIS NH 60 P [id number] QRSd 130 QRS -65 QT 437 T 79 QTc 472 Conclusion Atrial-paced complexes...other complexes also detected Left ventricular hypertrophy...multiple LVH criteria
== END 2022-08-20 08:15 | disposition home or self-care (01) ==
LOC: DI.CARD 08:15
PROVIDERS: PCP Family Medicine; Visit Provider Physician Assistant
DX: I48.91 Unspecified atrial fibrillation (principal); R00.1 Bradycardia, unspecified
CPT/HCPCS: 93010

== ENCOUNTER → 2022-08-20 13:44 | Outpatient (BNVA) | payer MEDICARE, SELFPAY | PROVIDERS: PCP Family Medicine; Referring Provider Family Medicine; Visit Provider Physician Assistant | DX: Z95.0 Presence of cardiac pacemaker (principal); R00.1 Bradycardia, unspecified; I48.91 Unspecified atrial fibrillation | CPT/HCPCS: 93005; 93280; 99202; 99213 ==

== ENCOUNTER 2022-09-12 02:34 | Outpatient (CLI) | payer MEDICARE, SELFPAY ==
[2022-09-12 14:21] LABS: HCT 42.1 % (40.0-50.0); HGB 14.7 g/dL (13.5-17.5); MCH 30.4 pg (27.0-33.0); MCHC 34.9 % (32.0-36.0); MCV 87 fL (80-95); MPV 9.5 fL (8.0-11.0); Platelet Count 250 10^3/uL (130-400); RBC 4.84 10^6/uL (4.36-5.78); RDW-SD 40.6 fL; Reticulocyte 1.6 % (0.5-2.4); WBC 11.08 10^3/uL (4.4-10.8)
[2022-09-12 14:37] LABS: ALT 27 U/L (16-63); AST 16 U/L (15-37); Albumin 3.5 g/dL (3.4-5.0); Alkaline Phosphatase 95 U/L (46-116); Anion Gap 7.1 mmol/L (3-11); BUN 15 mg/dL (7-18); Bilirubin, Total 2.6 mg/dL (0.2-1.0); CO2 33.9 mmol/L (21.0-32.0); CREATININE 1.6 mg/dL (0.70-1.30); Calcium 9.8 mg/dL (8.5-10.1); Calculated LDL 10 mg/dL (<100); Chloride 101 mmol/L (98-107); Cholesterol 86 mg/dL (<200); Estimated GFR 44.93 (mL/min/1.73m2); Glucose 257 mg/dL (74-106); HDL Cholesterol 42 mg/dL (40-60); Magnesium 1.5 mg/dL (1.8-2.4); Potassium 3.6 mmol/L (3.5-5.1); Sodium 142 mmol/L (136-145); Total Protein 7.5 g/dL (6.4-8.2); Triglyceride 173 mg/dL (<150)
[2022-09-12 14:47] LABS: PHOSPHORUS 2.9 mg/dL (2.6-4.7); Uric Acid 6.7 mg/dL (3.5-7.2)
[2022-09-12 14:58] LABS: COMMENT (LAB VIEW ONLY) 120.01 mg/dL; Creatinine,Urine 118.79 mg/dL; PROTEIN 32.2 mg/dL; Prot/Crea Ur Ratio 0.26
[2022-09-12 15:37] LABS: Bilirubin Negative (Negative); Blood Negative (Negative); Clarity Clear (Clear); Glucose Negative (Negative); Ketones Negative (Negative); Leukocyte Esterase Negative (Negative); Nitrite Negative (Negative); Specific Gravity 1.015 (1.005-1.025); Urobilinogen 0.2 mg/dL (Up to 0.2); pH 8.5 (5-8)
[2022-09-12 15:40] LABS: Bacteria Negative HPF (Negative); C & S Indicated? No; Casts Negative LPF (Negative); Crystals Negative HPF (Negative); Epithelial Cells Few HPF (Negative); Mucus Negative (Negative); Other Cells Negative (Negative); RBC 0-2 HPF (0-2); WBC 0-2 HPF (0-5)
[2022-09-12 22:42] LABS: Parathyroid Hormone,Intact 41 pg/mL (19-88)
[2022-09-13 08:32] LABS: Calcium (Random Urine) 14.5 mg/dL (See Note); Magnesium Random Urine 19.9 mg/dL (See Note); Phosphorus Urine 21.9 mg/dL (See Note)
[2022-09-13 12:37] LABS: Tacrolimus 14.2 ng/mL (See Note)
[2022-09-15 19:41] LABS: 25-Hydroxy D Total 34 ng/mL; 25-Hydroxy D2 <4.0 ng/mL; 25-Hydroxy D3 34 ng/mL
[2022-09-16 13:52] LABS: BKV DNA Detect/Quant, P Undetected IU/mL (Undetected)
== END 2022-09-12 02:35 | disposition home or self-care (01) ==
LOC: LBO 02:34
PROVIDERS: PCP Family Medicine; Visit Provider Internal Medicine Nephrology
DX: Z29.8 Encounter for other specified prophylactic measures
CPT/HCPCS: 36415; 80053; 80061; 82306; 83735; 85027; 85045; 80197; 81003; 81015; 82340; 82565; 83036; 83970; 84100; 84105; 84156; 84550; 87799

== ENCOUNTER 2022-09-12 17:01 | Inpatient (IN) | payer MEDICARE, SELFPAY ==
[2022-09-12] VITALS (25 sets, daily range): BP systolic 108–168; BP diastolic 45–153; PULSE 59–67; RESP 18–24; TEMP 36.5; O2SAT 92–96
--- NOTE | 2022-09-12 17:19 | W.ED.GENAD ---
Discharge Plan Disposition Patient Disposition: Admit to [facility] Condition: Stable Discharge Details Clinical Impression: Diverticulitis of intestine with perforation Primary Care Provider: Urbano Jimenez ED Provider: Tal Plascencia [place] Meds and New Rx's Prescriptions: No Action atorvastatin 40 mg tablet 40 mg PO QHS (DME) blood sugar diagnostic Strip 1 ea Miscellaneous BID Qty: 180 3RF Rx Instructions: test twice daily omeprazole 20 mg capsule,delayed release(DR/EC) 20 mg PO DAILY PRN (Reason: GERD) Qty: 90 3RF magnesium gluconate 500 mg tablet 1,000 mg PO TID Rx Instructions: Takes 1000 mg AM and PM, takes 500 mg Lunchtime. -hb (DME) OneTouch Ultra Blue Test Strip Strip See Rx Instructions .ROUTE .MEDSUPPLY Qty: 180 4RF Rx Instructions: test BID calcitriol 0.25 mcg capsule 0.5 mcg PO DAILY (DME) blood-glucose meter 1 EACH misc 1 ea Miscellaneous DAILY Qty: 1 Rx Instructions: FOR ONE TOUCH ULTRA MINI Dx 250.00 No insulin (DME) lancets 1 EACH misc 1 ea Miscellaneous DAILY Qty: 100 Rx Instructions: FOR ONE TOUCH ULTRA MINI METER. NO INSULIN. DIAGNOSIS CODE 250.00 mycophenolate mofetil [CellCept] 250 MG capsule 250 mg PO BID ascorbic acid (vitamin C) [Vitamin C] 500 MG capsule, extended release 500 mg PO TID Centrum Silver 0.4-300-250 mg-mcg-mcg tablet 2 tab PO DAILY nitroglycerin 0.4 mg tablet, sublingual 0.4 mg SL Q5M PRN (Reason: chest pain) Qty: 10 0RF glipizide 10 mg tablet extended release 24hr 10 mg PO BID Qty: 180 3RF tacrolimus [Prograf] 1 mg capsule 3 mg PO DIRECTED Patient Comments: 08-17-17 pt reports that currently he takes 2 tabs in the am and 1 tab in the pm. hb Rx Instructions: 2 in am and one in evening tamsulosin 0.4 mg capsule 0.4 mg PO DAILY Qty: 90 3RF metoprolol succinate 25 mg tablet extended release 24 hr 50 mg PO BID levothyroxine 137 mcg tablet 137 mcg PO DAILY Qty: 90 1RF amlodipine 5 mg tablet 5 mg PO DAILY Qty: 90 3RF aspirin [Adult Low Dose Aspirin] 81 mg tablet,delayed release (DR/EC) 81 mg PO DAILY acetaminophen 500 mg capsule 500 mg PO Q8H PRN PRN (Reason: pain) hydralazine 100 mg tablet 100 mg PO BID Qty: 60 0RF Medical Decision Making 72 yo male with hx of kidney transplant, afib not on anticoagulation due to prior basal ganglia hemorrhage, htn, prior diverticulitis, who comes in with 2 days of worsening left sided lower abdominal pain. He denies fevers, chills, n/v, chest pain, dyspnea, testicle pain. HE can't think of anything that makes the pain better or worse and hasn't tried any otc analgesics. HE arrives stable in no distress. He has a softabdomen with tenderness in the llq, no upper or right sided abdominal tenderness. Given location suspect diverticulitis. He had a cbc and cmp done prior to arrival with pcp that were unremarkble, will check lipase and ct abd/pelvis without contrast due to his kidney transplant pt stable, ct confirms diverticulitis with microperforation, will consult general surgery. Corine ordered Dr. Boss evaluated, requests medical admission and will consult. Discussed with Dr. Urban who accepts for admission Differential Diagnosis Differential Diagnosis: sbo, diverticulitis Medical Records Medical records reviewed: Yes I reviewed the patient's medical records. Imaging Data Radiologic Study: Attestation: I personally reviewed and interpreted this imaging study as follows: Imaging: CT Scan Radiologist's impression: diverticulitis with microperforation Lab Data Lab results reviewed: Yes I reviewed the patient's lab results. HPI General Mode of arrival: ambulatory. Date/Time Provider Initiated Documentation: 09/12/22 17:02. Limitations to Documentation: no limitations. Information obtained by: patient. History of Present Illness 72 year old M presents to the emergency department with the chief complaint of abdominal pain, described as moderate, Patient started experiencing this day(s) (2) and it has been constant. No relieving factors improve symptom(s), Patient notes denies fever/chills and nausea/vomiting. Patient did receive the following treatments prior to arrival, none Related Data Home Medications Medication Instructions Recorded Confirmed blood-glucose meter #1 ea 09/27/14 08/20/22 lancets 28 gauge #100 ea 09/27/14 08/20/22 mycophenolate mofetil 250 mg 250 mg PO BID 04/15/16 09/12/22 capsule (CellCept) ascorbic acid (vitamin C) 500 mg 500 mg PO TID 09/05/16 09/12/22 capsule,extended release (Vitamin C) atorvastatin 40 mg tablet 40 mg PO QHS 03/04/19 09/12/22 blood sugar diagnostic #180 strips 03/04/19 08/20/22 omeprazole 20 mg capsule,delayed 20 mg PO DAILY PRN GERD #90 caps 06/17/19 09/12/22 release blood sugar diagnostic (OneTouch #180 ea 10/17/20 08/20/22 Ultra Blue Test Strip) kzqktsoa-nos-qlrzh acid 0.4 2 tab PO DAILY 01/16/21 09/12/22 mg-lycopene 300 mcg-lutein 250 mcg tablet (Centrum Silver) hydralazine 100 mg tablet 100 mg PO BID #60 tabs 03/01/21 09/12/22 calcitriol 0.25 mcg capsule 0.5 mcg PO DAILY 04/10/21 09/12/22 magnesium gluconate 500 mg tablet 1,000 mg PO TID 04/23/21 09/12/22 nitroglycerin 0.4 mg sublingual 0.4 mg sublingual Q5M PRN chest 11/01/21 09/12/22 tablet pain #10 tabs glipizide 10 mg tablet, extended 10 mg PO BID #180 tabs 11/26/21 09/12/22 release 24 hr tacrolimus 1 mg capsule, 3 mg PO DIRECTED 01/13/22 09/12/22 immediate-release (Prograf) tamsulosin 0.4 mg capsule 0.4 mg PO DAILY #90 tab-caps 02/13/22 09/12/22 levothyroxine 137 mcg tablet 137 mcg PO DAILY #90 tab-caps 04/16/22 09/12/22 metoprolol succinate 25 mg 50 mg PO BID 04/16/22 09/12/22 tablet,extended release 24 hr amlodipine 5 mg tablet 5 mg PO DAILY #90 tabs 05/19/22 09/12/22 acetaminophen 500 mg capsule 500 mg PO Q8H PRN PRN pain 07/17/22 09/12/22 aspirin 81 mg tablet,delayed 81 mg PO DAILY 07/17/22 09/12/22 release (Adult Low Dose Aspirin) Previous Rx's Medication Instructions Recorded blood sugar diagnostic #180 strips 03/04/19 omeprazole 20 mg capsule,delayed 20 mg PO DAILY PRN GERD #90 caps 06/17/19 release blood sugar diagnostic (OneTouch #180 ea 10/17/20 Ultra Blue Test Strip) hydralazine 100 mg tablet 100 mg PO BID #60 tabs 03/01/21 nitroglycerin 0.4 mg sublingual 0.4 mg sublingual Q5M PRN chest 11/01/21 tablet pain #10 tabs glipizide 10 mg tablet, extended 10 mg PO BID #180 tabs 11/26/21 release 24 hr tamsulosin 0.4 mg capsule 0.4 mg PO DAILY #90 tab-caps 02/13/22 levothyroxine 137 mcg tablet 137 mcg PO DAILY #90 tab-caps 04/16/22 amlodipine 5 mg tablet 5 mg PO DAILY #90 tabs 05/19/22 Allergies Allergy/AdvReac Type Severity Reaction Status Date / Time strawberry Allergy Unknown Other (See Verified 09/12/22 17:12 Comment) General Stated Complaint: Abd Prob ALICIA: 3 Review of Systems All systems reviewed & are unremarkable except as noted in HPI and below Constitutional Constitutional: Denies chills, Denies fever(s) and Denies weakness Cardiovascular Cardiovascular: Denies chest pain and Denies dyspnea Respiratory Respiratory: Denies cough and Denies dyspnea Gastrointestinal Gastrointestinal: Denies nausea and Denies vomiting Genitourinary Genitourinary: Denies dysuria Musculoskeletal Musculoskeletal: Denies joint swelling Integumentary/Breasts Skin/Breast: Denies rash Neurologic Neurologic: Denies weakness PFSH All Active Problems Diverticulitis of intestine with perforation (Acute) Pacemaker (Acute) dual lead [employer] [place] 01/31/2022 RIGHT SIDED Presence of Watchman left atrial appendage closure device (Acute) [facility] [place] 05/27 Long-term current use of 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 biologic agent (Acute) Vitamin D deficiency (Acute ~05/2022) Osteoarthritis of left knee (Acute) Parkinsonism (Acute) Tremor (Acute) Acute diverticulitis (Acute) - confirmed by CT , inpt at [facility] Bradycardia (Acute) Vasogenic edema (Acute) Hypertension (Chronic) Hiccups (Acute) 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, tx at [facility] [place], anticoagulant stopped Altered mental status (Acute) Hypertensive retinopathy (Acute ~09/27/20) [place] 09/27/20- MILD TO MODERATE-KB Spinal stenosis (Acute) L5-S1 Subsequent non-ST elevation (NSTEMI) myocardial infarction within 4 weeks of initial infarction (Acute) stents History of arthroscopy of knee (Acute) History of biopsy (Acute) Perirectal abscess (Acute) Status post rotator cuff repair (Acute) Postoperative stiffness of total knee replacement (Chronic) Olecranon bursitis, left elbow (Chronic) Arthritis of left elbow (Acute) Tubular adenoma (Acute 09/12/15) 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 Microscopic hematuria (Acute 05/21/12) neg [place]up [facility] [place] 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 Need dialysis or transplant. 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 s/p hernia repair b. s/p knee arthroscopy c. s/p unspecified shoulder surgery d. s/p vasectomy Medical History Atrial fibrillation BPH (benign prostatic hyperplasia) CHF (congestive heart failure) Chronic kidney disease CVA (cerebral vascular accident) Diabetes Fistula GERD (gastroesophageal reflux disease) Hepatitis C Treated and cured HTN (hypertension) Hyperlipemia Hypothyroidism Myocardial infarction Obstructive sleep apnea Surgical History Arthroplasty of knee 2006-right BIOPSY, KIDNEY (10/16/14) [facility] [place]-RIGHT Colonoscopy - MAC 2008 H/O bladder repair surgery H/O vasectomy History of hernia repair KIDNEY TRANSPLANT (09/16/15) [facility] [place]-09/16/15 Rotator Cuff Repair left Family History Mother Essential hypertension Father Myocardial infarction Stroke Brother Essential hypertension Neoplasm Social History Smoking/Tobacco Use Status: Current-Occasional Tobacco Type: cigars Tobacco: How many years used: 20 Smoking risk assessment performed?: Yes Alcohol Intake: never Drug use: Occasionally Substance use type: marijuana Adopted: No Caregiver/Support person: Yes Foster care: No Household members: spouse Housing: house Number of Children: 2 number of grandchildren: 1 Communication Needs: None Education Level: high school 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 Pets and animals: Yes Pets and animals: dog(s) Sexually active: No Do you think of yourself as: straight/heterosexual Current gender identity: male What is your relationship status?: How often do you talk on the phone with friends or family?: three or more times per week Do you belong to any clubs or organized social groups?: no Panel score (0-1 are the most socially isolated patients): 2 Idalia/Hindu: None Special idalia needs: No Seatbelt use: always Helmet use: Yes Helmet use: always Drive intox or ride w/intox hyster driver: No Do you feel safe at home: Yes Do you feel safe in your relationship?: Yes Exam Const General: no acute distress Orientation: alert HENMT Head: normal to inspection Ears: external ears normal General nose exam: external nose normal Mouth: moist mucous membranes Eyes General: appearance normal, both eyes and all related structures Neck Neck: normal visual inspection Resp Effort & Inspection: normal respiratory effort and able to speak in complete sentences Cardio Rate: regular rate GI Palpation: soft and tender Skin General skin exam: no rashes or lesions noted Neuro General: patient alert and patient oriented x3 Extrem General: normal to inspection Psych Mental Status: mental status grossly normal Course Vital Signs Vital signs: Vital Signs Temperature 36.5 C 09/12/22 17:06 Pulse 63 09/12/22 17:06 Respiratory Rate 24 09/12/22 17:06 Blood Pressure 130/68 09/12/22 17:06 Pulse Oximetry 96 09/12/22 17:06 Temperature 36.5 C 09/12/22 17:06 Temperature Source Skin 09/12/22 17:06 Pulse 63 09/12/22 17:06 Respiratory Rate 24 09/12/22 17:06 Blood Pressure 130/68 09/12/22 17:06 Pulse Oximetry 96 09/12/22 17:06 Oxygen Delivery Method Room Air 09/12/22 17:06 Oxygen Flow Rate 0 09/12/22 17:06 Pain Level 7 09/12/22 17:06
[2022-09-12 17:31] LABS: Bilirubin Negative (Negative); Blood Negative (Negative); Clarity Cloudy (Clear); Glucose Negative (Negative); Ketones Negative (Negative); Leukocyte Esterase Negative (Negative); Nitrite Negative (Negative); Urobilinogen 0.2 mg/dL (Up to 0.2); pH 8.5 (5-8)
[2022-09-12 17:41] LABS: Bacteria Negative HPF (Negative); C & S Indicated? No; Casts Negative LPF (Negative); Crystals Few Amorphous HPF (Negative); Epithelial Cells Rare HPF (Negative); Mucus Negative (Negative); RBC 0-2 HPF (0-2); WBC 0-2 HPF (0-5)
--- NOTE | 2022-09-12 17:48 | DI.CT_ITS ---
Exam(s) CT ABDOMEN PELVIS WO EXAM: CT ABDOMEN PELVIS WO CLINICAL HISTORY: lower abdominal pain, hx kidney transplant. TECHNIQUE: Imaging Protocol: Axial computed tomography images with coronal and sagittal reformatted images were created and reviewed. Oral: / no COMPARISON: CT CT CHEST/ABD/PEL WO from 02/25/2021 FINDINGS: ABDOMEN: Lung Bases: Normal where visualized. Heart is enlarged. Pacemaker leads. Liver: Normal density. No measurable mass. Gallbladder and biliary tract: Gallstone. No gallbladder wall thickening or biliary dilatation. Pancreas: Normal density, no abnormal calcifications or inflammatory process. Spleen: Normal. Kidneys: Severely atrophic [place] kidneys. Cyst again noted at lower pole of the [place] left kidney. The left pelvic kidney transplant, unchanged in appearance.. No evidence of hydronephrosis. Adrenal glands: No masses seen. Lymph nodes: Within normal limits. Abdominal Aorta: Abdominal portion non-dilated. PELVIS: Bladder: Stable appearance of urinary bladder Bowel: Sigmoid diverticulosis with mild surrounding diverticulitis. No abscess. Question of adjacen t micro perforation. No obstruction . Peritoneal cavity: No ascites, or focal collection. Reproductive organs: Within normal limits. Bones: Degenerative changes. IMPRESSION: Mild sigmoid diverticulitis with adjacent microperforation. No change in appearance of left renal transplant. RADIATION DOSE DELIVERED: 1,037.34mGy.cm Total DLP DATA REPOSITORY: All CT scans at this facility are submitted to the National Radiology Data Registry (NRDR) Dose Index Registry (DIR) with the [employer] (ACR). RADIATION OPTIMIZATION: All CT scans at this facility use at least one of these dose optimization te chniques: automated exposure control; mA and/or kV adjustment per patient size (includes targeted exa ms where dose is matched to clinical indication); or iterative reconstruction.
[2022-09-12 17:57] LABS: Lipase 33 U/L (16-77)
[2022-09-12] MEDS: ACETAMINOPHEN 1,000 MG/100 ML BTL 400 MG IVPB (18:06)
[2022-09-12] MEDS: Normal Saline 1,000 ML 1000 ML IV (18:07)
--- NOTE | 2022-09-12 18:33 | DI.VRAD_ITS ---
Addendum created by Mckenzie Bourne MD on 09/12/2022 6:35:09 PM EST: THIS REPORT CONTAINS FINDINGS THAT MAY BE CRITICAL TO PATIENT CARE. The pertinent findings were verbally communicated via telephone conference with Tal Plascencia at 6:35 PM EST on 09/12/2022. The findings were acknowledged and understood. Initial report created on 09/12/2022 6:33:09 PM EST: PROCEDURE INFORMATION: Exam: CT Abdomen And Pelvis Without Contrast Exam date and time: 09/12/2022 5:55 PM Age: 72 years old Clinical indication: Abdominal pain; Prior surgery; Surgery type: H/o kidney transplant TECHNIQUE: Imaging protocol: Computed tomography of the abdomen and pelvis without contrast. COMPARISON: CT CHEST/ABD/PEL WO 02/25/2021 8:06 PM FINDINGS: Tubes, catheters and devices: Cardiac pacemaker leads are partially seen. Heart: Cardiomegaly is partially seen. Trace pericardial fluid appears likely physiologic. Liver: No hepatic masses on noncontrast imaging. Gallbladder and bile ducts: Cholelithiasis. The gallbladder is contracted. No significant biliary dilation or radiopaque stones in the biliary tree. Pancreas: No gross pathology in the pancreas on noncontrast imaging. Spleen: No splenomegaly or focal lesions. Adrenal glands: No mass. Kidneys and ureters: Chronically atrophic [place] kidneys. Severe dilation of the left collecting system is similar to prior, obstruction may be due to some left-sided retroperitoneal surgical clips. Transplanted kidney in the left lower quadrant without hydronephrosis ; similar configuration of the ureter implanted on the urinary bladder, ureter appears mildly thick walled, difficult to distinguish transition to the bladder. Stomach and bowel: Acute mild diverticulitis of the proximal sigmoid colon. Diverticular inflammation and colonic wall thickening. There is a punctate focus of gas in the mesentery at this location. No gross pathology in the small bowel without IV contrast. Appendix: No evidence of appendicitis. Intraperitoneal space: No jared pneumoperitoneum or abscess. Vasculature: No abdominal aortic aneurysm. Lymph nodes: No significantly enlarged lymph nodes. Urinary bladder: 4 mm dense focus base of the left urinary bladder versus UV junction stable since prior, stability suggests this is a small chronic benign calcification. Reproductive: Unremarkable as visualized. Bones/joints: Chronic bony changes with no acute fracture. Soft tissues: No suspicious lesions. IMPRESSION: 1. Acute mild diverticulitis of the proximal sigmoid colon. Mesenteric microperforation with no abscess. 2. Additional findings as described. Dictated and Authenticated by: Mckenzie Bourne MD. Ordering:CINTHIA Parada MD
[2022-09-12] MEDS: PIPERACILLIN/TAZO 4.5 GM in Normal Saline 100 ML IVPB (19:02)
--- NOTE | 2022-09-12 19:12 | W.SURGCON ---
Date of service: 09/12/22 Time of Service: 19:15 Assessment and Plan Assessment and plan (1) Diverticulitis of intestine with perforation: Status: Acute Assessment and plan: 72-year-old man with microperforated diverticulitis in setting of multiple comorbidities as well as kidney and ureter transplant history. He is hemodynamically stable. He has focal peritonitis only. Patient's history of transplant surgery and transplant medications complicates an otherwise usual and common presentation and problem. He is immunosuppressed. I reviewed his CT scan myself. There is no obvious free fluid and no obvious free air that is not contained. Sigmoid colon appears inflamed. From a surgical perspective, if he were to require surgery, he should be transferred to a tertiary center because of his complex history and perioperative management requirements. At this time, my assessment is that emergency surgery is not necessary and he can be managed with non-operative management, serial abdominal exams and antibiotics. His medical comorbidities need to be managed closely and carefully. His Prograf levels should be monitored daily. I am not sure if there is a role for CellCept level monitoring and stable kidney transplant patients. I am sure his transplant physicians would appreciate remote consultation. I would only perform surgery on him as a true?emergency, life?saving measure if he were to worsen to the point of being unstable for transfer. The overall management strategy from my point of view is his clinical trend. If his trend in the next 24 hours is not that of improvement I would recommend an empiric transfer to a tertiary facility for further management. If he shows improvement over the next 24 hours and we can continue simply antibiotics and monitoring and hopefully that will be all that he needs to get complete recovery. I discussed all of this with the emergency department physician who will facilitate admitting the patient to the medical service. I will follow along closely! Any signs of worsening/clinical decline should be managed with transfer to a tertiary facility. History of Present Illness History of Present Illness Chief Complaint: Abdominal pain Narrative: 72-year-old man presents to the ER with abdominal pain for the last couple of days. He recognizes the pain is the same pain he had a few years ago. He had an episode of acute diverticulitis and was hospitalized for 3 days. He responded to antibiotics and did not require any surgery. He has a history of renal transplant about 6 or 7 years ago. He is on CellCept and Prograf twice daily. He says I take them religiously. He is up-to-date on colonoscopy and says his last one was 2 years ago and they told him everything was normal. He self?reports I know if I need to have surgery I am supposed to be transferred to [facility] where I have my transplant surgery done. Surgical history includes bilateral inguinal hernia repairs, knee surgery, shoulder surgery, kidney transplant, ureter reimplantation procedure months after the transplant. Medical problems including heart failure, bradycardia arrhythmias as well as type 2 diabetes. [facility] All Active Problems Diverticulitis of intestine with perforation (Acute) Pacemaker (Acute) dual lead [employer] H[place]ley 01/31/2022 RIGHT SIDED Presence of Watchman left atrial appendage closure device (Acute) [facility] [place] 05/27 Long-term current use of 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 biologic agent (Acute) Vitamin D deficiency (Acute ~05/2022) Osteoarthritis of left knee (Acute) Parkinsonism (Acute) Tremor (Acute) Acute diverticulitis (Acute) - confirmed by CT , inpt at [facility] Bradycardia (Acute) Vasogenic edema (Acute) Hypertension (Chronic) Hiccups (Acute) 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, tx at [facility] [place] [place], anticoagulant stopped Altered mental status (Acute) Hypertensive retinopathy (Acute ~09/27/20) [place] 09/27/20- MILD TO MODERATE-KB Spinal stenosis (Acute) L5-S1 Subsequent non-ST elevation (NSTEMI) myocardial infarction within 4 weeks of initial infarction (Acute) stents History of arthroscopy of knee (Acute) History of biopsy (Acute) Perirectal abscess (Acute) Status post rotator cuff repair (Acute) Postoperative stiffness of total knee replacement (Chronic) Olecranon bursitis, left elbow (Chronic) Arthritis of left elbow (Acute) Tubular adenoma (Acute 09/12/15) 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 Microscopic hematuria (Acute 05/21/12) neg workup [facility]. Kidney transplant recipient (Acute 09/16/15) [facility] [place] [facility]; without recipient nephrectomy ureteral stenosis with multiple surgeries Inguinal hernia, unilateral (Acute) left Hypothyroidism (Acute 04/06/15) Hypertension (Acute) GERD (gastroesophageal reflux disease) (Acute) Elevated BUN (Acute) Diverticula of colon (Acute 09/12/15) Colon polyp (Acute 06/04/03) Repeat colonoscopy-no polyps; diverticulosis Cardiomyopathy due to hypertension (Acute 11/29/14) EF 40% 09/17 CKD (chronic kidney disease) stage 3, GFR 30-59 ml/min (Acute 04/25/14) 10/18 Stage 4.. Need dialysis or transplant. 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 s/p hernia repair b. s/p knee arthroscopy c. s/p unspecified shoulder surgery d. s/p vasectomy Medical History Atrial fibrillation BPH (benign prostatic hyperplasia) CHF (congestive heart failure) Chronic kidney disease CVA (cerebral vascular accident) Diabetes Fistula GERD (gastroesophageal reflux disease) Hepatitis C Treated and cured HTN (hypertension) Hyperlipemia Hypothyroidism Myocardial infarction Obstructive sleep apnea Surgical History Arthroplasty of knee 2005-right BIOPSY, KIDNEY (10/16/14) [facility] [place]-RIGHT Colonoscopy - [facility] H/O bladder repair surgery H/O vasectomy History of hernia repair KIDNEY TRANSPLANT (09/16/15) [facility] [place]-09/16/15 Rotator Cuff Repair left Family History Mother Essential hypertension Father Myocardial infarction Stroke Brother Essential hypertension Neoplasm Social History Smoking/Tobacco Use Status: Current-Occasional Tobacco Type: cigars Tobacco: How many years used: 20 Smoking risk assessment performed?: Yes Alcohol Intake: never Drug use: Occasionally Substance use type: marijuana Adopted: No Caregiver/Support person: Yes Foster care: No Household members: spouse Housing: house Number of Children: 2 number of grandchildren: 1 Communication Needs: None Education Level: high school 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 Pets and animals: Yes Pets and animals: dog(s) Sexually active: No Do you think of yourself as: straight/heterosexual Current gender identity: male What is your relationship status?: How often do you talk on the phone with friends or family?: three or more times per week Do you belong to any clubs or organized social groups?: no Panel score (0-1 are the most socially isolated patients): 2 Idalia/Sikhism: None Special idalia needs: No Seatbelt use: always Helmet use: Yes Helmet use: always Drive intox or ride w/intox [employer] c[employer] 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 He is not in any distress. Neuro: Alert and oriented x3 Psych: Good mood and affect, good insight and understanding into his conditions. Abdomen: Soft, mildly distended, nontender in the bilateral upper quadrants but he does have tap tenderness (peritonitis) in the bilateral lower quadrants. Well?healed surgical midline scar. Results Last Vital Signs Temp 97.7 F 09/12/22 17:06 Pulse 63 09/12/22 17:06 Resp 24 09/12/22 17:06 BP 130/68 09/12/22 17:06 Pulse Ox 96 09/12/22 17:06 Labs Labs: Laboratory Results - last 24 hr 09/12/22 09/12/22 14:25 17:35 Lipase 33 Urine Color Yellow Urine Clarity Cloudy Urine pH 8.5 H Ur Specific Plover 1.020 Urine Protein 30 H Urine Ketones Negative Urine Blood Negative Urine Nitrite Negative Urine Bilirubin Negative Urine Urobilinogen 0.2 Ur Leukocyte Esterase Negative Urine RBC 0-2 Urine WBC 0-2 Ur Epithelial Cells Rare Urine Crystals Few Amorphous Urine Bacteria Negative Urine Casts Negative Urine Mucus Negative Ur Culture Indicated? No Urine Glucose Negative
--- NOTE | 2022-09-12 19:47 | HPE_ITS ---
Date of service: 09/12/22 Time of Service: 19:47 Assessment and Plan Assessment and plan (1) Diverticulitis of intestine with perforation: Start date: 09/12/22 Status: Acute Assessment and plan: This is a 72-year-old gentleman with a previous history of diverticulitis presenting with a 2 to 3 day history of left lower quadrant abdominal pain with liquid stools. CT scan revealed diverticulitis with microperforation and patient was seen by surgery who recommends conservative therapy with IV antibiotic therapy with surgical consultation to follow. He is on immunosuppressants with renal transplant and these will be continued. The patient will be on bowel rest except for clear fluids and no IV hydration because of a history of CHF. He is a full code. (2) Kidney transplant recipient: Status: Chronic Assessment and plan: Continue Prograf and CellCept with aggressive antibiotic therapy for diverticulitis. Follow clinically. Lab daily. (3) Long-term current use of 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 biologic agent: Status: Chronic Assessment and plan: Continue CellCept and Prograf. Patient is will have to be in his medication from home with his to bring this in in the morning. He will skip his dose tonight. (4) Hypertension: Status: Chronic Assessment and plan: Slightly elevated with patient to continue outpatient medical regimen. Monitor clinically. Qualifiers: Hypertension type: unspecified Qualified Code(s): I10 - Essential (primary) hypertension (5) Atrial fibrillation: Status: Chronic Assessment and plan: Irregular rhythm with atrial paced beats. Baseline is atrial fibrillation by history. 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 Qualifiers: Atrial fibrillation type: unspecified Qualified Code(s): I48.91 - Unspecified atrial fibrillation (6) Diabetes mellitus, type II: Status: Chronic Assessment and plan: Uncontrolled recently with patient to have glucometer coverage before meals and at bedtime with short acting insulin. Usually he is on oral hypoglycemics. Qualifiers: Diabetes mellitus complication detail: with diabetic retinopathy Diabetes mellitus complication status: with ophthalmic complications Diabetes mellitus detention insulin use: unspecified detention insulin use status Diabetes mellitus macular edema: macular edema presence unspecified Diabetic retinopathy severity: with unspecified retinopathy severity Laterality: unspecified laterality Qualified Code(s): E11.319 - Type 2 diabetes mellitus with unspecified diabetic retinopathy without macular edema (7) Bradycardia: Status: Chronic Assessment and plan: With atrial paced pacemaker spikes having history of chronic atrial fibrillation with bradycardia which was symptomatic in the past. History of Present Illness History of Present Illness Chief Complaint: Left lower quadrant abdominal pain Narrative: This is a 72-year-old male patient who originally was from [place] but lives locally now and is seen in specialty care with [facility]. He is status post renal transplant on CellCept and Prograf as well as being treated for diabetes which reason has been out of control and has a history of diverticulitis 2 to 3 years ago now presenting with 2 to 3 days of left lower quadrant abdominal pain. He has had liquid stools over the same timeframe but no blood in his stools. He denies any nausea or vomiting but slight bloating. He states that he is hungry even now despite his discomfort. He has had no fever or chills and denies any respiratory or cardiovascular complaints. He does have a history of atrial fibrillation with a pacemaker for bradycardia which is an atrial pacemaker and had a Watchman procedure and is off Eliquis at this time status post basal ganglia hemorrhage. He is on a baby aspirin instead. He was given Zosyn in the ED and seen by surgery who wanted medical admission with surgical consultation which will be done. He does have diverticulitis with microperforation according to CT does have focal left lower quadrant abdominal pain with diarrhea as mentioned. He does have a slightly elevated WBC at 11 and elevated hemoglobin A1c above 8 which is not his normal with chemistries otherwise stable with CKD. The patient is a full code. Review of Systems Narrative: 13 point review of systems otherwise unrevealing or stable. Patient has had no edema or weight gain. He does have some bloating of his abdomen. [facility] All Active Problems (Updated 09/12/22 @ 22:55 by Franko Urban) Diverticulitis of intestine with perforation (Acute) Pacemaker (Acute) dual lead [employer] Graball 01/31/2022 RIGHT SIDED Presence of Watchman left atrial appendage closure device (Acute) [facility] 05/27 Long-term current use of 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 biologic agent (Chronic) Vitamin D deficiency (Acute ~05/2022) Osteoarthritis of left knee (Acute) Parkinsonism (Acute) Tremor (Acute) Acute diverticulitis (Acute) - confirmed by CT , inpt at [facility] Bradycardia (Chronic) Vasogenic edema (Acute) Hypertension (Chronic) Hiccups (Acute) 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, tx at [facility], anticoagulant stopped Altered mental status (Acute) Hypertensive retinopathy (Acute ~09/27/20) [place]E 09/27/20- MILD TO MODERATE-KB Spinal stenosis (Acute) L5-S1 Subsequent non-ST elevation (NSTEMI) myocardial infarction within 4 weeks of initial infarction (Acute) stents History of arthroscopy of knee (Acute) History of biopsy (Acute) Perirectal abscess (Acute) Status post rotator cuff repair (Acute) Postoperative stiffness of total knee replacement (Chronic) Olecranon bursitis, left elbow (Chronic) Arthritis of left elbow (Acute) Tubular adenoma (Acute 09/12/15) 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 Microscopic hematuria (Acute 05/21/12) neg workup [facility]. Kidney transplant recipient (Chronic 09/16/15) [facility]; without recipient nephrectomy ureteral stenosis with multiple surgeries Inguinal hernia, unilateral (Acute) left Hypothyroidism (Acute 04/06/15) Hypertension (Acute) GERD (gastroesophageal reflux disease) (Acute) Elevated BUN (Acute) Diverticula of colon (Acute 09/12/15) Colon polyp (Acute 06/04/03) Repeat colonoscopy-no polyps; diverticulosis Cardiomyopathy due to hypertension (Acute 11/29/14) EF 40% 09/17 CKD (chronic kidney disease) stage 3, GFR 30-59 ml/min (Acute 04/25/14) 10/18 Stage 4.. Need dialysis or transplant. 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 s/p hernia repair b. s/p knee arthroscopy c. s/p unspecified shoulder surgery d. s/p vasectomy Medical History Atrial fibrillation BPH (benign prostatic hyperplasia) CHF (congestive heart failure) Chronic kidney disease CVA (cerebral vascular accident) Diabetes Fistula GERD (gastroesophageal reflux disease) Hepatitis C Treated and cured HTN (hypertension) Hyperlipemia Hypothyroidism Myocardial infarction Obstructive sleep apnea Surgical History Arthroplasty of knee 2006-right BIOPSY, KIDNEY (10/16/14) [facility]-RIGHT Colonoscopy - MAC 2009 H/O bladder repair surgery H/O vasectomy History of hernia repair KIDNEY TRANSPLANT (09/16/15) [facility]-09/16/15 Rotator Cuff Repair left Family History Mother Essential hypertension Father Myocardial infarction Stroke Brother Essential hypertension Neoplasm Social History Smoking/Tobacco Use Status: Current-Occasional Tobacco Type: cigars Tobacco: How many years used: 20 Smoking risk assessment performed?: Yes Alcohol Intake: never Drug use: Occasionally Substance use type: marijuana Adopted: No Caregiver/Support person: Yes Foster care: No Household members: spouse Housing: house Number of Children: 2 number of grandchildren: 1 Communication Needs: None Education Level: high school 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 Pets and animals: Yes Pets and animals: dog(s) Sexually active: No Do you think of yourself as: straight/heterosexual Current gender identity: male What is your relationship status?: How often do you talk on the phone with friends or family?: three or more times per week Do you belong to any clubs or organized social groups?: no Panel score (0-1 are the most socially isolated patients): 2 Idalia/Sikhism: None Special idalia needs: No Seatbelt use: always Helmet use: Yes Helmet use: always Drive intox or ride w/intox 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: No Do you feel safe at home: Yes Do you feel safe in your relationship?: Yes Meds Allergies and Home Medications Allergies Allergy/AdvReac Type Severity Reaction Status Date / Time strawberry Allergy Unknown Other (See Verified 09/12/22 17:12 Comment) Home Medications Medication Instructions Recorded Confirmed Type blood-glucose meter #1 ea 09/27/14 08/20/22 History lancets 28 gauge #100 ea 09/27/14 08/20/22 History mycophenolate mofetil 250 mg 250 mg PO BID 04/15/16 09/12/22 History capsule (CellCept) ascorbic acid (vitamin C) 500 mg 500 mg PO TID 09/05/16 09/12/22 History capsule,extended release (Vitamin C) atorvastatin 40 mg tablet 40 mg PO QHS 03/04/19 09/12/22 History blood sugar diagnostic #180 strips 03/04/19 08/20/22 Rx omeprazole 20 mg capsule,delayed 20 mg PO DAILY PRN GERD #90 caps 06/17/19 09/12/22 Rx release blood sugar diagnostic (OneTouch #180 ea 10/17/20 08/20/22 Rx Ultra Blue Test Strip) efcmlobi-ima-[id number] acid 0.4 2 tab PO DAILY 01/16/21 09/12/22 History mg-lycopene 300 mcg-lutein 250 mcg tablet (Centrum Silver) hydralazine 100 mg tablet 100 mg PO BID #60 tabs 03/01/21 09/12/22 Rx calcitriol 0.25 mcg capsule 0.5 mcg PO DAILY 04/10/21 09/12/22 History magnesium gluconate 500 mg tablet 1,000 mg PO TID 04/23/21 09/12/22 History nitroglycerin 0.4 mg sublingual 0.4 mg sublingual Q5M PRN chest 11/01/21 09/12/22 Rx tablet pain #10 tabs glipizide 10 mg tablet, extended 10 mg PO BID #180 tabs 11/26/21 09/12/22 Rx release 24 hr tacrolimus 1 mg capsule, 3 mg PO DIRECTED 01/13/22 09/12/22 History immediate-release (Prograf) tamsulosin 0.4 mg capsule 0.4 mg PO DAILY #90 tab-caps 02/13/22 09/12/22 Rx levothyroxine 137 mcg tablet 137 mcg PO DAILY #90 tab-caps 04/16/22 09/12/22 Rx metoprolol succinate 25 mg 50 mg PO BID 04/16/22 09/12/22 History tablet,extended release 24 hr amlodipine 5 mg tablet 5 mg PO DAILY #90 tabs 05/19/22 09/12/22 Rx acetaminophen 500 mg capsule 500 mg PO Q8H PRN PRN pain 07/17/22 09/12/22 History aspirin 81 mg tablet,delayed 81 mg PO DAILY 07/17/22 09/12/22 History release (Adult Low Dose Aspirin) Exam Narrative Exam Narrative: General: Patient appears older than stated age, moderately obese over his trunk otherwise mesomorphic, alert and oriented x3 and in no acute distress. HEENT: Normocephalic, erwin long hair and barry appearing disheveled, eyes with pupils equal and reactive to light symmetrically, extraocular movement tact and sclera anicteric. Oropharynx with moist mucosa. Neck: Supple without JVD. Back: Stooped posture without CVA tenderness. Lungs: Decreased aeration right base compared to left otherwise clear to auscultation with no focalizing rales or rhonchi. Heart: Irregular irregular rhythm with systolic murmur left sternal border. No gallop or rubs. Palpable subcutaneous pacemaker right upper chest. Abdomen: Slightly protuberant, guarding with tenderness left lower quadrant with slight rebound and decreased bowel sounds left abdomen compared to right but decreased all quadrants. No tympany to percussion. Genitalia/rectal: Exam deferred. Extremities: Without clubbing, cyanosis or grossly pitting edema. Good capillary refill. Skin: Normal color, warm and dry. Neuro: Cranial nerves II through XII gross intact, no focalizing motor deficits. No tremor. Psych: Normal affect and mood. Remote and recent memory intact. No abnormal thought processes. Results Imaging Imaging Studies: Exam: CT Abdomen And Pelvis Without Contrast Exam date and time: 09/12/2022 5:55 PM Age: 72 years old Clinical indication: Abdominal pain; Prior surgery; Surgery type: H/o kidney transplant TECHNIQUE: Imaging protocol: Computed tomography of the abdomen and pelvis without contrast. COMPARISON: CT CHEST/ABD/PEL WO 02/25/2021 8:06 PM FINDINGS: Tubes, catheters and devices: Cardiac pacemaker leads are partially seen. Heart: Cardiomegaly is partially seen. Trace pericardial fluid appears likely physiologic. Liver: No hepatic masses on noncontrast imaging. Gallbladder and bile ducts: Cholelithiasis. The gallbladder is contracted. No significant biliary dilation or radiopaque stones in the biliary tree. Pancreas: No gross pathology in the pancreas on noncontrast imaging. Spleen: No splenomegaly or focal lesions. Adrenal glands: No mass. Kidneys and ureters: Chronically atrophic [place] kidneys. Severe dilation of the left collecting system is similar to prior, obstruction may be due to some left-sided retroperitoneal surgical clips. Transplanted kidney in the left lower quadrant without hydronephrosis ; similar configuration of the ureter implanted on the urinary bladder, ureter appears mildly thick walled, difficult to distinguish transition to the bladder. Stomach and bowel: Acute mild diverticulitis of the proximal sigmoid colon. Diverticular inflammation and colonic wall thickening. There is a punctate focus of gas in the mesentery at this location. No gross pathology in the small bowel without IV contrast. Appendix: No evidence of appendicitis. Intraperitoneal space:? No jared pneumoperitoneum or abscess. Vasculature: No abdominal aortic aneurysm. Lymph nodes: No significantly enlarged lymph nodes. Urinary bladder: 4 mm dense focus base of the left urinary bladder versus UV junction stable since prior, stability suggests this is a small chronic benign calcification. Reproductive: Unremarkable as visualized. Bones/joints: Chronic bony changes with no acute fracture. Soft tissues: No suspicious lesions.? IMPRESSION: 1. ? Acute mild diverticulitis of the proximal sigmoid colon.? Mesenteric microperforation with no abscess. 2. ? Additional findings as described. Labs Labs: Laboratory Results - last 24 hr 09/12/22 09/12/22 14:25 17:35 Lipase 33 Urine Color Yellow Urine Clarity Cloudy Urine pH 8.5 H Ur Specific [place] 1.020 Urine Protein 30 H Urine Ketones Negative Urine Blood Negative Urine Nitrite Negative Urine Bilirubin Negative Urine Urobilinogen 0.2 Ur Leukocyte Esterase Negative Urine RBC 0-2 Urine WBC 0-2 Ur Epithelial Cells Rare Urine Crystals Few Amorphous Urine Bacteria Negative Urine Casts Negative Urine Mucus Negative Ur Culture Indicated? No Urine Glucose Negative Last Vital Signs Temp 36.5 C 09/12/22 17:06 Pulse 62 09/12/22 19:30 Resp 24 09/12/22 17:06 BP 168/153 H 09/12/22 19:30 Pulse Ox 92 09/12/22 19:40 Time Spent Time spent with Patient: >75 minutes Time was spent: preparing to see the patient(eg.review tests), obtaining and/or reviewing separately otained hiistory, ordering medications,tests, procedures, referring, communicating with other health complex care nurse practitioner, indepentently interpreting results and care coordination
--- NOTE | 2022-09-12 20:04 | NUR.NOTE ---
Blood Pressure imported from 1930 into this PCR is not an accurate value due to patient factors, FPJ
[2022-09-12 20:15] LABS: Source Nasal/Nares
[2022-09-12 20:46] LABS: COVID-19 PCR Negative (Negative)
[2022-09-12] MEDS: Atorvastatin 40 MG TAB PO (22:00)
[2022-09-12] MEDS: Heparin 5,000 UNITS/ML VIAL 5000 UNITS SC (23:57)
[2022-09-13] VITALS (10 sets, daily range): BP systolic 120–148; BP diastolic 61–87; PULSE 59–68; RESP 16–18; TEMP 36.5–36.9; O2SAT 92–100
[2022-09-13] MEDS: Tacrolimus 0.5 MG CAP 1 MG PO ×2 (00:28→20:37)
[2022-09-13] MEDS: Acetaminophen 325 MG TAB PO (00:35)
[2022-09-13] MEDS: PIPERACILLIN/TAZO 3.375 GM in Normal Saline 50 ML IVPB ×4 (02:37→20:34)
[2022-09-13 06:23] LABS: HCT 38.9 % (40.0-50.0); HGB 13.3 g/dL (13.5-17.5); MCH 29.8 pg (27.0-33.0); MCHC 34.2 % (32.0-36.0); MCV 87 fL (80-95); MPV 9.8 fL (8.0-11.0); Platelet Count 218 10^3/uL (130-400); RBC 4.47 10^6/uL (4.36-5.78); RDW-SD 40.5 fL; WBC 9.75 10^3/uL (4.4-10.8)
[2022-09-13] MEDS: Heparin 5,000 UNITS/ML VIAL 5000 UNITS SC ×3 (06:28→22:16)
[2022-09-13 06:38] LABS: ALT 22 U/L (16-63); AST 13 U/L (15-37); Albumin 2.9 g/dL (3.4-5.0); Alkaline Phosphatase 81 U/L (46-116); Anion Gap 7.1 mmol/L (3-11); BUN 14 mg/dL (7-18); Bilirubin, Total 2.7 mg/dL (0.2-1.0); CO2 30.9 mmol/L (21.0-32.0); CREATININE 1.5 mg/dL (0.70-1.30); Calcium 9.1 mg/dL (8.5-10.1); Chloride 104 mmol/L (98-107); Estimated GFR 48.55 (mL/min/1.73m2); Glucose 137 mg/dL (74-106); Magnesium 1.5 mg/dL (1.8-2.4); Potassium 3.4 mmol/L (3.5-5.1); Sodium 142 mmol/L (136-145); Total Protein 6.4 g/dL (6.4-8.2)
[2022-09-13 06:44] LABS: TSH (W/Ref FT4) 0.69 uIU/mL (0.36-3.74)
[2022-09-13] MEDS: Omeprazole 20 MG CAPCR 40 MG PO (07:47)
[2022-09-13] MEDS: Tamsulosin 0.4 MG CAPCR PO (07:47)
[2022-09-13] MEDS: Aspirin E.C. 81 MG TABEC PO (07:47)
[2022-09-13] MEDS: Ascorbic Acid 500 MG TAB PO ×3 (08:44→20:38)
[2022-09-13] MEDS: Metoprolol CR 25 MG TABCR 50 MG PO ×2 (08:44→20:38)
[2022-09-13] MEDS: amLODIPine 5 MG TAB PO (08:44)
[2022-09-13] MEDS: Multivitamin w/Minerals TAB 2 TAB PO (08:45)
[2022-09-13] MEDS: hydrALAZINE 25 MG TAB 100 MG PO ×2 (08:45→20:37)
[2022-09-13] MEDS: Calcitriol 0.25 MCG CAP 0.5 MCG PO (08:45)
[2022-09-13] MEDS: Magnesium Gluconate 500 MG TAB 1000 MG PO ×3 (08:45→20:38)
--- NOTE | 2022-09-13 11:11 | PGE_ITS ---
Date of Service Date of service: 09/13/22 Time of Service: 10:30 Assessment and Plan Assessment and plan (1) Diverticulitis of intestine with perforation: Status: Acute Assessment and plan: 72 yo man with complicated sigmoid diverticultisi that is responding to non- operative management. No fevers, WBC normalizing. Exam remains tender but without diffuse peritoneal signs. HD stable. Having bowel function. PLAN: #open window shades, get sunlight, look outside, family visitation #out of ICU to regular floor room #Cont IV Abx #Hold diet as is, no solid food yet # remove moran and allow to self-cath #OOB and ambulate as much as possible #Hep gtt for heart valve Hopeful DC home on Thursday if he continues to make slow improvement Subjective Subjective Interval history since last seen: No overnight issues or events. He has no complaints at bedside. Mildly depressed about being in hospital. Overall he reports feel better than yesterday. No fevers. Wants his moran out and is willing to self-cath as he usually does. No appetite but he has had a small bowel movement, is passing gas and has no N/V. Exam Narrative Exam Narrative: Gen: Nontoxic and comfortable in no distress. Neuro: AxOx3 Psych: Depressed and sad mood and affect. Reasonable insight and understanding. Abdomen: Soft, no noticeable distention. He remains tender in the LLQ to tap tenderness. The other 3Qs are not tender. Objective Last Vital Signs Temp 98.4 F 09/13/22 07:49 Pulse 59 L 09/13/22 07:49 Resp 16 09/13/22 07:49 BP 148/70 H 09/13/22 07:49 Pulse Ox 92 09/13/22 07:49 Laboratory Results - last 24 hr 09/12/22 09/12/22 09/12/22 14:25 17:35 20:10 WBC RBC Hgb Hct MCV MCH MCHC RDW Plt Count MPV Sodium Potassium Chloride Carbon Dioxide Anion Gap BUN Creatinine Est GFR (CKD-EPI 2020) Glucose Calcium Magnesium Total Bilirubin AST ALT Alkaline Phosphatase Total Protein Albumin Lipase 33 TSH Urine Color Yellow Urine Clarity Cloudy Urine pH 8.5 H Ur Specific [place] 1.020 Urine Protein 30 H Urine Ketones Negative Urine Blood Negative Urine Nitrite Negative Urine Bilirubin Negative Urine Urobilinogen 0.2 Ur Leukocyte Esterase Negative Urine RBC 0-2 Urine WBC 0-2 Ur Epithelial Cells Rare Urine Crystals Few Amorphous Urine Bacteria Negative Urine Casts Negative Urine Mucus Negative Ur Culture Indicated? No Urine Glucose Negative COVID-19 Source Nasal/Nares SARS-CoV-2 (PCR) Negative 09/13/22 09/13/22 09/13/22 05:35 06:00 06:00 WBC 9.75 RBC 4.47 Hgb 13.3 L Hct 38.9 L MCV 87 MCH 29.8 MCHC 34.2 RDW 13.0 Plt Count 218 MPV 9.8 Sodium 142 Potassium 3.4 L Chloride 104 Carbon Dioxide 30.9 Anion Gap 7.1 BUN 14 Creatinine 1.5 H Est GFR (CKD-EPI 2020) 48.55 Glucose 137 H Calcium 9.1 Magnesium 1.5 L Total Bilirubin 2.7 H AST 13 L ALT 22 Alkaline Phosphatase 81 Total Protein 6.4 Albumin 2.9 L Lipase TSH 0.69 Urine Color Urine Clarity Urine pH Ur Specific [place] Urine Protein Urine Ketones Urine Blood Urine Nitrite Urine Bilirubin Urine Urobilinogen Ur Leukocyte Esterase Urine RBC Urine WBC Ur Epithelial Cells Urine Crystals Urine Bacteria Urine Casts Urine Mucus Ur Culture Indicated? Urine Glucose COVID-19 Source SARS-CoV-2 (PCR) Time Spent with Patient Time Spent with Patient: <25 minutes Time was spent: counseling the patient
[2022-09-13] MEDS: Tacrolimus 0.5 MG CAP 2 MG PO (12:10)
[2022-09-13] MEDS: POTASSIUM CHLORIDE 20 MEQ/100 ML BAG 50 MEQ IVPB ×2 (12:11→14:30)
[2022-09-13] MEDS: Insulin Aspart 300 UNITS/3 ML PEN SC ×2 (12:36→22:17)
[2022-09-13] MEDS: MAGNESIUM SULFATE 2 GM/50 ML BAG IVPB (12:45)
--- NOTE | 2022-09-13 13:43 | PDOC.CMIN ---
- If Service Date Differs Date of service: 09/13/22 Time of Service: 13:43 Care Management Initial Assess REASON FOR HOSPITALIZATION:: Diverticulitis with Microperforation PAST MEDICAL HISTORY/PAST SURGICAL HISTORY:: Medical History . Atrial fibrillation. BPH (benign prostatic hyperplasia). CHF (congestive heart failure). Chronic kidney disease. CVA (cerebral vascular accident). Diabetes. Fistula. GERD (gastroesophageal reflux disease). Hepatitis C. Treated and cured. HTN (hypertension). Hyperlipemia. Hypothyroidism. Myocardial infarction. Obstructive sleep apnea. Surgical History . Arthroplasty of knee. 2006-right. BIOPSY, KIDNEY (10/16/14). [facility] [place]-RIGHT. Colonoscopy - MAC. 2008. H/O bladder repair surgery. H/O vasectomy. History of hernia repair. KIDNEY TRANSPLANT (09/16/15). [facility] [place]-09/16/15. Rotator Cuff Repair. left PREVIOUS FUNCTIONAL STATUS/SOCIAL/FAMILY SUPPORTS:: Cody resides in [place] with his , Mara. Their son resides nearby in [place]. Cody is independent at baseline, is immunosuppressed related to kidney and ureter transplant history. CURRENT FUNCTIONAL STATUS:: Cody is up with stanby assist, eating well and pleasant in interaction. ADVANCE DIRECTIVES:: None on file. Has patient been provided with info about the portal/API?: Yes Did the patient sign up for the portal?: Yes CODE STATUS:: Full Code INSURANCE COVERAGE / FINANCIAL ISSUES:: BC/BS Out of State. BC/BS [facility] PRIMARY CARE PHYSICIAN:: Urbano Jimenez POTENTIAL DISCHARGE NEEDS:: Per MD: From a surgical perspective, if he were to require surgery, he should be transferred to a tertiary center because of his complex history and perioperative management requirements. PATIENT/FAMILY EDUCATION NEEDS:: Cody is well versed on self managment of transplant needs, and fully engaged with his own care. Review of discharge recommendations upon discharge. ANTICIPATED BARRIERS TO DISCHARGE:: None identified. TRANSPORTATION:: Via private vehicle with . PLAN:: Per MD: Cody at this time with be managed with non-operative management, serial abdominal exams and antibiotics. Anticipate consultation with transplant physicians, he will continue to be closely monitored due to comorbidities and Prograf levels, per MD. When medically cleared, anticipate Cody will return home via private vehicle with his , follow up with his PCP and plan of care as prescribed.
--- NOTE | 2022-09-13 13:58 | W.PM.PROGNOT ---
Date of Service Date of service: 09/13/22 Time of Service: 13:58 Assessment and Plan Assessment and plan (1) Diverticulitis of intestine with perforation: Status: Acute Assessment and plan: This is a 72-year-old gentleman with a previous history of diverticulitis presenting with a 2 to 3 day history of left lower quadrant abdominal pain with liquid stools. CT scan revealed diverticulitis with microperforation and patient was seen by surgery who recommends conservative therapy with IV antibiotic therapy with surgical consultation to follow. He is on immunosuppressants with renal transplant and these will be continued. The patient will be on bowel rest except for clear fluids and no IV hydration because of a history of CHF. He is a full code. [facility] would like us to follow med levels - this is a sendout - it takes 3 days to come back - too long to trend (2) Kidney transplant recipient: Status: Chronic Assessment and plan: Continue Prograf and CellCept with aggressive antibiotic therapy for diverticulitis. Follow clinically. Lab daily - but send out, can't trend with 3d return (3) Long-term current use of 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 biologic agent: Status: Chronic Assessment and plan: Continue CellCept and Prograf. Patient continues his medication from home, brought home meds in (4) Hypertension: Status: Chronic Assessment and plan: Slightly elevated with patient to continue outpatient medical regimen. Monitor clinically. Qualifiers: Hypertension type: unspecified Qualified Code(s): I10 - Essential (primary) hypertension (5) Atrial fibrillation: Status: Chronic Assessment and plan: Irregular rhythm with atrial paced beats. Baseline is atrial fibrillation by history. 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 Qualifiers: Atrial fibrillation type: unspecified Qualified Code(s): I48.91 - Unspecified atrial fibrillation (6) Diabetes mellitus, type II: Status: Chronic Assessment and plan: Uncontrolled recently with patient to have glucometer coverage before meals and at bedtime with short acting insulin. Usually he is on oral hypoglycemics. 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 (8) Discharge planning issues: Status: Acute Assessment and plan: Discussed with [facility] - accepted in transfer, s/t kidney transplant and med levels, should be where intervention can occur if needed - patient is in agreement with transfer. Awaiting bed placement, anticipate 09/[address] Moses Lopes did speak with [facility] regarding transport Subjective Subjective Patient reports: no new complaints, tolerating liquids well, bowel movement and afebrile; denies diarrhea, blood in stool, vomiting or shortness of breath Exam Narrative Exam Narrative: General: Patient appears older than stated age, moderately obese over his trunk otherwise mesomorphic, alert and oriented x3 and in no acute distress. HEENT: Normocephalic, erwin long hair and barry appearing disheveled, eyes with pupils equal and reactive to light symmetrically, extraocular movement tact and sclera anicteric. Oropharynx with moist mucosa. Neck: Supple without JVD. Back: Stooped posture without CVA tenderness. Lungs: Decreased aeration right base compared to left otherwise clear to auscultation with no focalizing rales or rhonchi. Heart: Irregular irregular rhythm with systolic murmur left sternal border. No gallop or rubs. Palpable subcutaneous pacemaker right upper chest. Abdomen: Slightly protuberant, guarding with tenderness left lower quadrant with slight rebound and decreased bowel sounds left abdomen compared to right but decreased all quadrants. No tympany to percussion. Genitalia/rectal: Exam deferred. Extremities: Without clubbing, cyanosis or grossly pitting edema. Good capillary refill. Skin: Normal color, warm and dry. Neuro: Cranial nerves II through XII gross intact, no focalizing motor deficits. No tremor. Psych: Normal affect and mood. Remote and recent memory intact. No abnormal thought processes. Objective Last Vital Signs Temp 36.5 C 09/13/22 11:21 Pulse 68 09/13/22 11:21 Resp 16 09/13/22 11:21 BP 120/84 09/13/22 11:21 Pulse Ox 94 09/13/22 11:21 Laboratory Results - last 24 hr 09/12/22 09/12/22 09/12/22 14:25 17:35 20:10 WBC RBC Hgb Hct MCV MCH MCHC RDW Plt Count MPV Sodium Potassium Chloride Carbon Dioxide Anion Gap BUN Creatinine Est GFR (CKD-EPI 2020) Glucose Calcium Magnesium Total Bilirubin AST ALT Alkaline Phosphatase Total Protein Albumin Lipase 33 TSH Urine Color Yellow Urine Clarity Cloudy Urine pH 8.5 H Ur Specific Henderson 1.020 Urine Protein 30 H Urine Ketones Negative Urine Blood Negative Urine Nitrite Negative Urine Bilirubin Negative Urine Urobilinogen 0.2 Ur Leukocyte Esterase Negative Urine RBC 0-2 Urine WBC 0-2 Ur Epithelial Cells Rare Urine Crystals Few Amorphous Urine Bacteria Negative Urine Casts Negative Urine Mucus Negative Ur Culture Indicated? No Urine Glucose Negative COVID-19 Source Nasal/Nares SARS-CoV-2 (PCR) Negative 09/13/22 09/13/22 09/13/22 05:35 06:00 06:00 WBC 9.75 RBC 4.47 Hgb 13.3 L Hct 38.9 L MCV 87 MCH 29.8 MCHC 34.2 RDW 13.0 Plt Count 218 MPV 9.8 Sodium 142 Potassium 3.4 L Chloride 104 Carbon Dioxide 30.9 Anion Gap 7.1 BUN 14 Creatinine 1.5 H Est GFR (CKD-EPI 2020) 48.55 Glucose 137 H Calcium 9.1 Magnesium 1.5 L Total Bilirubin 2.7 H AST 13 L ALT 22 Alkaline Phosphatase 81 Total Protein 6.4 Albumin 2.9 L Lipase TSH 0.69 Urine Color Urine Clarity Urine pH Ur Specific Henderson Urine Protein Urine Ketones Urine Blood Urine Nitrite Urine Bilirubin Urine Urobilinogen Ur Leukocyte Esterase Urine RBC Urine WBC Ur Epithelial Cells Urine Crystals Urine Bacteria Urine Casts Urine Mucus Ur Culture Indicated? Urine Glucose COVID-19 Source SARS-CoV-2 (PCR) Time Spent with Patient Time Spent with Patient: 25-34 minutes Time was spent: preparing to see the patient(eg.review tests), obtaining and/or reviewing separately otained hiistory, ordering medications,tests, procedures, referring, communicating with other health district manager primary care sales, indepentently interpreting results, counseling the patient and care coordination
[2022-09-13] MEDS: MORPHine 2 MG/ML SYR IVP ×3 (15:47→20:25)
--- NOTE | 2022-09-13 16:45 | W.PM.PROGNOT ---
Date of Service Date of service: 09/13/22 Time of Service: 10:45 Assessment and Plan Assessment and plan (1) Diverticulitis of intestine with perforation: Status: Acute Assessment and plan: 72 yo man with complicated diverticulitis in setting of immunosuppression/kidney transplant. HD stable. Exam is improving. He is subjectively feeling better with 12 hours of Abx. PLAN: # Cont clear liquids only - no solid food # Analgesia prn # No surgery at this time and as long as he improves, continue the current management. # if starts to decline or multiple days without improving, then transfer to tertiary # emergency surgery here at [facility] only for life-saving measures if too unstable/sick to transfer. # medical management per hospitalist team(transplant, heart, diabetes meds etc) Subjective Subjective Interval history since last seen: At bedside, patient reports he is feeling improved compared to last night. No N/V. Pain is better, but still present. Exam Narrative Exam Narrative: Gen: Nontoxic, comfortable and interactive. Neuro: AxOx3 Psych: Good mood and affect, good insight and understanding Abdomen: Soft, mildly distending still, tap tenderness now in the LLQ only. Other 3Qs are nontender. Objective Last Vital Signs Temp 98.2 F 09/13/22 15:04 Pulse 66 09/13/22 16:29 Resp 17 09/13/22 15:04 BP 132/61 09/13/22 15:04 Pulse Ox 94 09/13/22 15:04 Laboratory Results - last 24 hr 09/12/22 09/12/22 09/12/22 14:25 17:35 20:10 WBC RBC Hgb Hct MCV MCH MCHC RDW Plt Count MPV Sodium Potassium Chloride Carbon Dioxide Anion Gap BUN Creatinine Est GFR (CKD-EPI 2020) Glucose Calcium Magnesium Total Bilirubin AST ALT Alkaline Phosphatase Total Protein Albumin Lipase 33 TSH Urine Color Yellow Urine Clarity Cloudy Urine pH 8.5 H Ur Specific Bronson 1.020 Urine Protein 30 H Urine Ketones Negative Urine Blood Negative Urine Nitrite Negative Urine Bilirubin Negative Urine Urobilinogen 0.2 Ur Leukocyte Esterase Negative Urine RBC 0-2 Urine WBC 0-2 Ur Epithelial Cells Rare Urine Crystals Few Amorphous Urine Bacteria Negative Urine Casts Negative Urine Mucus Negative Ur Culture Indicated? No Urine Glucose Negative COVID-19 Source Nasal/Nares SARS-CoV-2 (PCR) Negative 09/13/22 09/13/2223 05:35 06:00 06:00 WBC 9.75 RBC 4.47 Hgb 13.3 L Hct 38.9 L MCV 87 MCH 29.8 MCHC 34.2 RDW 13.0 Plt Count 218 MPV 9.8 Sodium 142 Potassium 3.4 L Chloride 104 Carbon Dioxide 30.9 Anion Gap 7.1 BUN 14 Creatinine 1.5 H Est GFR (CKD-EPI 2020) 48.55 Glucose 137 H Calcium 9.1 Magnesium 1.5 L Total Bilirubin 2.7 H AST 13 L ALT 22 Alkaline Phosphatase 81 Total Protein 6.4 Albumin 2.9 L Lipase TSH 0.69 Urine Color Urine Clarity Urine pH Ur Specific Bronson Urine Protein Urine Ketones Urine Blood Urine Nitrite Urine Bilirubin Urine Urobilinogen Ur Leukocyte Esterase Urine RBC Urine WBC Ur Epithelial Cells Urine Crystals Urine Bacteria Urine Casts Urine Mucus Ur Culture Indicated? Urine Glucose COVID-19 Source SARS-CoV-2 (PCR) Time Spent with Patient Time Spent with Patient: <25 minutes Time was spent: counseling the patient
[2022-09-13] MEDS: Atorvastatin 40 MG TAB PO (22:16)
[2022-09-14] VITALS: PULSE 64
[2022-09-14] MEDS: PIPERACILLIN/TAZO 3.375 GM in Normal Saline 50 ML IVPB ×3 (01:12→15:28)
[2022-09-14] MEDS: MORPHine 2 MG/ML SYR IVP ×4 (01:13→15:39)
[2022-09-14 03:05] VITALS: BP 132/64; PULSE 62; RESP 16; TEMP 36.6; O2SAT 92
[2022-09-14] MEDS: Heparin 5,000 UNITS/ML VIAL 5000 UNITS SC ×2 (05:55→15:28)
[2022-09-14 06:11] LABS: Abs Immature Grans 0.02 10^3/uL (0.0-0.06); Absolute Basophil Count 0.07 10^3/uL (0.0-0.2); Absolute Eosinophil Count 0.32 10^3/uL (0.0-0.7); Absolute Lymphocyte Count 1.68 10^3/uL (1.2-3.4); Absolute Monocyte Count 0.72 10^3/uL (0.1-0.8); Absolute Neutrophil Count 6.14 10^3/uL (1.2-6.7); Basophils % 0.8; Eosinophils % 3.6; HCT 38.1 % (40.0-50.0); HGB 13.2 g/dL (13.5-17.5); Immature Grans % 0.2; Lymphocytes % 18.8; MCH 29.9 pg (27.0-33.0); MCHC 34.6 % (32.0-36.0); MCV 86 fL (80-95); MPV 9.6 fL (8.0-11.0); Neutrophils % 68.6; Platelet Count 216 10^3/uL (130-400); RBC 4.41 10^6/uL (4.36-5.78); RDW 12.7 % (11.8-14.1); RDW-SD 40.3 fL; WBC 8.95 10^3/uL (4.4-10.8)
[2022-09-14 06:28] LABS: Anion Gap 6.7 mmol/L (3-11); BUN 10 mg/dL (7-18); CO2 28.3 mmol/L (21.0-32.0); CREATININE 1.5 mg/dL (0.70-1.30); Calcium 8.4 mg/dL (8.5-10.1); Chloride 105 mmol/L (98-107); Estimated GFR 48.55 (mL/min/1.73m2); Glucose 131 mg/dL (74-106); Magnesium 1.6 mg/dL (1.8-2.4); Sodium 140 mmol/L (136-145)
[2022-09-14 07:09] VITALS: BP 137/73; PULSE 56; RESP 17; TEMP 37.2; O2SAT 93
[2022-09-14 07:15] VITALS: PULSE 60
[2022-09-14] MEDS: Tacrolimus 0.5 MG CAP 2 MG PO (08:45)
[2022-09-14] MEDS: Omeprazole 20 MG CAPCR 40 MG PO (08:55)
[2022-09-14] MEDS: Magnesium Gluconate 500 MG TAB 1000 MG PO ×2 (08:56→15:29)
[2022-09-14] MEDS: Metoprolol CR 25 MG TABCR 50 MG PO (08:56)
[2022-09-14] MEDS: Multivitamin w/Minerals TAB 2 TAB PO (08:56)
[2022-09-14] MEDS: amLODIPine 5 MG TAB PO (08:56)
[2022-09-14] MEDS: Calcitriol 0.25 MCG CAP 0.5 MCG PO (08:57)
[2022-09-14] MEDS: Aspirin E.C. 81 MG TABEC PO (08:58)
[2022-09-14] MEDS: Tamsulosin 0.4 MG CAPCR PO (08:58)
[2022-09-14] MEDS: hydrALAZINE 25 MG TAB 100 MG PO (09:22)
[2022-09-14] MEDS: Ascorbic Acid 500 MG TAB PO ×2 (09:22→15:29)
--- NOTE | 2022-09-14 10:53 | W.PM.PROGNOT ---
Date of Service Date of service: 09/14/22 Time of Service: 11:36 Assessment and Plan Assessment and plan (1) Diverticulitis of intestine with perforation: Status: Acute Assessment and plan: 72-year-old man with a complex medical and surgical history (organ transplant and multi?system comorbidities) who has complicated diverticulitis being treated, successfully thus far, with nonoperative management. He is hemodynamically stable. His abdominal exam has slowly continued to improve. He is tolerating a diet and passing gas. Leukocytosis has resolved and he is not having any fevers. We do have to remember he is immunocompromised so those are not reliable indicators in his case. This time, considering his clinical improvement and hemodynamic stability, I think it is unlikely that he will need to be transferred to a tertiary center for any further management. However, as previously mentioned, if he were to start to decline or stops improving, transfer is the next step since he is too complex/risky of a surgical candidate. (outside of emergency, life?saving measures if he were to become unstable for transfer - this is not anticipated considering the trend of the last 36 hours) Overall plan: #Full liquid diet #Continue IV antibiotics #Can be converted to oral antibiotics once tap tenderness (focal peritonitis) has resolved(maybe tomorrow?) #Probable discharge in the next 36-48 hours on oral antibiotics as long as his abdominal exam continues to improve and his subjective symptoms improve as well. Subjective Subjective Interval history since last seen: At the bedside the patient reports I am definitely feeling better since yesterday. He is passing gas. No fevers. He is tolerating clear liquids. He does still subjectively have some abdominal pain but it is only isolated in the left lower quadrant. Exam Narrative Exam Narrative: General: Nontoxic, comfortable, in no distress and resting comfortably, he is interactive Neuro: Alert and oriented x3 Psych: Appropriate mood and affect, good insight and understanding into his condition Abdomen: Soft, mildly distended, he still has tap tenderness in the left lower quadrant but it is very focal today (1 specific spot only) and notably improved compared to yesterday. Objective Last Vital Signs Temp 99.0 F 09/14/22 07:09 Pulse 60 09/14/22 07:15 Resp 17 09/14/22 07:09 BP 137/73 09/14/22 07:09 Pulse Ox 93 09/14/22 07:09 Laboratory Results - last 24 hr 09/14/22 09/14/22 05:40 05:40 WBC 8.95 RBC 4.41 Hgb 13.2 L Hct 38.1 L MCV 86 MCH 29.9 MCHC 34.6 RDW 12.7 Plt Count 216 MPV 9.6 Immature Gran % 0.2 Neutrophils % 68.6 Lymphocytes % 18.8 Monocytes % 8.0 Eosinophils % 3.6 Basophils % 0.8 Nucleated RBC % 0.0 Absolute Neutrophils 6.14 Absolute Lymphocytes 1.68 Absolute Monocytes 0.72 Absolute Eosinophils 0.32 Absolute Basophils 0.07 Sodium 140 Potassium 3.0 L Chloride 105 Carbon Dioxide 28.3 Anion Gap 6.7 BUN 10 Creatinine 1.5 H Est GFR (CKD-EPI 2020) 48.55 Glucose 131 H Calcium 8.4 L Magnesium 1.6 L Time Spent with Patient Time Spent with Patient: <25 minutes Time was spent: counseling the patient
[2022-09-14 11:26] VITALS: BP 128/65; PULSE 60; RESP 16; TEMP 36.7; O2SAT 94
[2022-09-14] MEDS: MAGNESIUM SULFATE 2 GM/50 ML BAG IVPB (12:21)
[2022-09-14] MEDS: Potassium Chloride Liquid 20 MEQ PKT PO ×2 (12:21→16:58)
[2022-09-14] MEDS: Insulin Aspart 300 UNITS/3 ML PEN SC ×2 (13:17→16:58)
--- NOTE | 2022-09-14 14:36 | DSE_ITS ---
This discharge summary came to my inbox for signature. I could not reroute this document to Dr. Lopes who was the collaborating physician on duty and working w/ Olga Jones NFabien. at the time of this patient's transfer. I had no involvement in this patient's care but signed off the chart as this was the only way to get this document out of my inbox. Ms. Jones could not change the document's contributing provider list as she had already signed off the chart. Que Quarles M.D. Date of service: 09/14/22 Time of Service: 14:45 DS: Diagnosis Discharge Diagnosis (1) Diverticulitis of intestine with perforation: Status: Acute Asessment and Plan: with microperforation. kidney transplant patient on tacrolimus. on zosoyn. unable to tolerate PO, continues to have significant left sided abdominal Discharge Plan Disposition Patient Disposition: Transfer-Acute Inpatient Care Specific Acute Inpt Facility: [facility] Condition: Poor Discharge Details Reason For Visit: Diverticulitis with Microperforation Admit Date/Time: 09/12/22 19:54 Admit Provider: Franko Urban Attending Provider: Franko Urban Primary Care Provider: Urbano Jimenez [facility] Course Hospital Course: This is a 72-year-old gentleman with a previous history of diverticulitis presenting with a 2 to 3 day history of left lower quadrant abdominal pain with liquid stools.? CT scan revealed diverticulitis with microperforation and patient was seen by surgery who recommends conservative therapy with IV antibiotic therapy with surgical consultation to follow.? He is on immunosuppressants with renal transplant. We are unable to follow tacrolimus levels here and [place] is [place] [facility] [place] as [place] a [place] patient. He was accepted by DR Mc and is awaiting a bed. he will be transported by ground ems. discussed with Dr Lopes. Home Meds and New Rx's Prescriptions: No Action atorvastatin 40 mg tablet 40 mg PO QHS (DME) blood sugar diagnostic Strip 1 ea Miscellaneous BID Qty: 180 3RF Rx Instructions: test twice daily omeprazole 20 mg capsule,delayed release(DR/EC) 20 mg PO DAILY PRN (Reason: GERD) Qty: 90 3RF magnesium gluconate 500 mg tablet 1,000 mg PO TID Rx Instructions: Takes 1000 mg AM and PM, takes 500 mg Lunchtime. -hb (DME) OneTouch Ultra Blue Test Strip Strip See Rx Instructions .ROUTE .MEDSUPPLY Qty: 180 4RF Rx Instructions: test BID calcitriol 0.25 mcg capsule 0.5 mcg PO DAILY (DME) blood-glucose meter 1 EACH misc 1 ea Miscellaneous DAILY Qty: 1 Rx Instructions: FOR ONE TOUCH ULTRA MINI Dx 250.00 No insulin (DME) lancets 1 EACH misc 1 ea Miscellaneous DAILY Qty: 100 Rx Instructions: FOR ONE TOUCH ULTRA MINI METER. NO INSULIN. DIAGNOSIS CODE 250.00 mycophenolate mofetil [CellCept] 250 MG capsule 250 mg PO BID ascorbic acid (vitamin C) [Vitamin C] 500 MG capsule, extended release 500 mg PO TID Centrum Silver 0.4-300-250 mg-mcg-mcg tablet 2 tab PO DAILY nitroglycerin 0.4 mg tablet, sublingual 0.4 mg SL Q5M PRN (Reason: chest pain) Qty: 10 0RF glipizide 10 mg tablet extended release 24hr 10 mg PO BID Qty: 180 3RF tacrolimus [Prograf] 1 mg capsule 3 mg PO DIRECTED Patient Comments: 08-17-17 pt reports that currently he takes 2 tabs in the am and 1 tab in the pm. hb Rx Instructions: 2 in am and one in evening tamsulosin 0.4 mg capsule 0.4 mg PO DAILY Qty: 90 3RF metoprolol succinate 25 mg tablet extended release 24 hr 50 mg PO BID levothyroxine 137 mcg tablet 137 mcg PO DAILY Qty: 90 1RF amlodipine 5 mg tablet 5 mg PO DAILY Qty: 90 3RF aspirin [Adult Low Dose Aspirin] 81 mg tablet,delayed release (DR/EC) 81 mg PO DAILY acetaminophen 500 mg capsule 500 mg PO Q8H PRN PRN (Reason: pain) hydralazine 100 mg tablet 100 mg PO BID Qty: 60 0RF Discharge Instructions Referrals: Urbano Jimenez DO [Primary Care Provider] - (Follow up when you are discharged from [facility]) Activity:: Activity as Tolerated Equipment/Supplies:: No Equipment Needed Diet:: NPO Discharge Orders Discharge Orders: Discharge Order (Routine); Ordered 09/14/22 Ordered By: Rolando Lopes Discharge Data Discharge Date/Time-TO BE ENTERED AT DEPARTURE: 09/14/22 17:58 DS: Summary Time Spent with Patient providing and/or coordinating discharge services: Greater than 30 minutes Status at Discharge Functional status at discharge: independent ambulation Overall status at discharge: patient is not back to baseline Mental Status: mental status grossly normal Speech and Movement: speech and movement normal Mood: congruent mood Affect: normal affect Exam Const General: cooperative, frail appearing and ill appearing acutely Nutritional Appearance: overweight Orientation: alert, awake and oriented x3 HENMT Head: normal to inspection and normocephalic Mouth: oral mucosae normal Chest Chest: normal inspection of the chest Resp Effort & Inspection: normal respiratory effort Cardio Rate: regular rate Rhythm: regular rhythm GI Inspection: distended Palpation: firm and tender in the LLQ and in the LUQ Skin General skin exam: no rashes or lesions noted Neuro General: patient alert, patient awake and patient oriented x3 Extrem General: normal to inspection and full ROM Psych Appearance: disheveled Mental Status: mental status grossly normal Speech and Movement: speech and movement normal Mood: congruent mood Affect: normal affect Attitude: cooperative Thought Process: normal Thought Content: normal Insight: insight good Judgment: judgment good DS: Data Vitals/I&O Vitals and I&O: Vital Signs Temperature 36.7 C 09/14/22 11:26 Temperature Source Tympanic 09/14/22 11:26 Pulse 60 09/14/22 11:26 Pulse Rhythm Irregular 09/14/22 10:31 Respiratory Rate 16 09/14/22 11:26 Respiratory Effort Normal 09/14/22 10:31 Respiratory Depth Normal 09/14/22 10:31 Respiratory Pattern Normal 09/14/22 10:31 Blood Pressure 128/65 09/14/22 11:26 Blood Pressure Mean 82 09/12/22 21:16 Pulse Oximetry 94 09/14/22 11:26 Oxygen Delivery Method Room Air 09/14/22 11:26 Oxygen Flow Rate 0 09/14/22 11:26 Pain Level 2 09/14/22 11:26 Intake & Output 09/13/22 09/14/22 09/14/22 22:59 11:59 23:59 Intake Total Output Total Balance Intake: IV Oral Output: Urine Other: Urine Color Urine Appearance Urine Odor Voiding Methods Data Completed and Pending Labs on day of discharge: Labs from last 24 hours 09/14/22 09/14/22 09/14/22 05:40 05:40 05:40 WBC 8.95 RBC 4.41 Hgb 13.2 L Hct 38.1 L MCV 86 MCH 29.9 MCHC 34.6 RDW 12.7 Plt Count 216 MPV 9.6 Immature Gran % 0.2 Neutrophils % 68.6 Lymphocytes % 18.8 Monocytes % 8.0 Eosinophils % 3.6 Basophils % 0.8 Nucleated RBC % 0.0 Absolute Neutrophils 6.14 Absolute Lymphocytes 1.68 Absolute Monocytes 0.72 Absolute Eosinophils 0.32 Absolute Basophils 0.07 Sodium 140 Potassium 3.0 L Chloride 105 Carbon Dioxide 28.3 Anion Gap 6.7 BUN 10 Creatinine 1.5 H Est GFR (CKD-EPI 2020) 48.55 Glucose 131 H Calcium 8.4 L Magnesium 1.6 L Tacrolimus Pending [facility] All Active Problems (Updated 09/14/22 @ 00:59 by Herlinda Joel NP) Discharge planning issues (Acute) Diverticulitis of intestine with perforation (Acute) Pacemaker (Acute) dual lead [employer] [place] 01/31/2022 RIGHT SIDED Presence of Watchman left atrial appendage closure device (Acute) [facility] [place] Long-term current use of 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 biologic agent (Chronic) Vitamin D deficiency (Acute ~05/2022) Osteoarthritis of left knee (Acute) Parkinsonism (Acute) Tremor (Acute) Acute diverticulitis (Acute) - confirmed by CT , inpt at [facility] Bradycardia (Chronic) Vasogenic edema (Acute) Hypertension (Chronic) Hiccups (Acute) 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, [place] [facility] [place], antico[place] stopped Altered mental status (Acute) Hypertensive retinopathy (Acute ~09/27/20) [place] 09/27/20- MILD TO MODERATE-KB Spinal stenosis (Acute) L5-S1 Subsequent non-ST elevation (NSTEMI) myocardial infarction within 4 weeks of initial infarction (Acute) stents History of arthroscopy of knee (Acute) History of biopsy (Acute) Perirectal abscess (Acute) Status post rotator cuff repair (Acute) Postoperative stiffness of total knee replacement (Chronic) Olecranon bursitis, left elbow (Chronic) Arthritis of left elbow (Acute) Tubular adenoma (Acute 09/12/15) 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 Microscopic hematuria (Acute 05/21/12) [place] [facility] 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 Need dialysis or transplant. 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 s/p hernia repair b. s/p knee arthroscopy c. s/p unspecified shoulder surgery d. s/p vasectomy Medical History Atrial fibrillation BPH (benign prostatic hyperplasia) CHF (congestive heart failure) Chronic kidney disease CVA (cerebral vascular accident) Diabetes Fistula GERD (gastroesophageal reflux disease) Hepatitis C Treated and cured HTN (hypertension) Hyperlipemia Hypothyroidism Myocardial infarction Obstructive sleep apnea Surgical History Arthroplasty of knee 2005-right BIOPSY, KIDNEY (10/16/14[place] [facility] [place] [facility] [place]/O bladder repair surgery H/O vasectomy History of hernia repair KIDNEY TRANSPLANT (09/16/15) [facility] [place] Rotator Cuff Repair left Family History Mother Essential hypertension Father Myocardial infarction Stroke Brother Essential hypertension Neoplasm Social History (Reviewed 09/12/22 @ 20:08 by Franko Philippe Smoking/Tobacco Use Status: Current-Occasional Tobacco Type: cigars Tobacco: How many years used: 20 Smoking risk assessment performed?: Yes Alcohol Intake: never Drug use: Occasionally Substance use type: marijuana Adopted: No Caregiver/Support person: Yes Foster care: No Household members: spouse Housing: house Number of Children: 2 number of grandchildren: 1 Communication Needs: None Education Level: high school 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 Pets and animals: Yes Pets and animals: dog(s) Sexually active: No Do you think of yourself as: straight/heterosexual Current gender identity: male What is your relationship status?: How often do you talk on the phone with friends or family?: three or more times per week Do you belong to any clubs or organized social groups?: no Panel score (0-1 are the most socially isolated patients): 2 Idalia/Religious: None Special idalia needs: No Seatbelt use: always Helmet use: Yes Helmet use: always Drive intox or ride w/intox wagon driver: No Do you feel safe at home: Yes Do you feel safe in your relationship?: Yes Time Spent with Patient Time Spent with Patient: 45-69 minutes Time was spent: preparing to see the patient(eg.review tests), obtaining and/or reviewing separately otained hiistory, ordering medications,tests, procedures, referring, communicating with other health resident care provider and care coordination
[2022-09-14 15:00] VITALS: BP 125/72; PULSE 60; PULSE 63; RESP 17; TEMP 36.6; O2SAT 95
[2022-09-16 13:41] LABS: Tacrolimus 14.3 ng/mL (See Note)
== END 2022-09-14 17:58 | disposition short-term general hospital (02) | DRG 392 ==
LOC: ER 18:56 → MS 21:43
PROVIDERS: Nurse Practitioner Family; Admitting Provider Family Medicine; Emergency Provider Emergency Medicine; PCP Family Medicine; Visit Provider Family Medicine
DX: K57.20 Diverticulitis of large intestine with perforation and abscess without bleeding (principal); Z94.0 Kidney transplant status; D84.821 Immunodeficiency due to drugs; I48.20 Chronic atrial fibrillation, unspecified; N18.4 Chronic kidney disease, stage 4 (severe); I13.0 Hypertensive heart and chronic kidney disease with heart failure and stage 1 through stage 4 chronic kidney disease, or unspecified chronic kidney disease; I43 Cardiomyopathy in diseases classified elsewhere; E11.40 Type 2 diabetes mellitus with diabetic neuropathy, unspecified; E11.65 Type 2 diabetes mellitus with hyperglycemia; E11.319 Type 2 diabetes mellitus with unspecified diabetic retinopathy without macular edema; E11.22 Type 2 diabetes mellitus with diabetic chronic kidney disease; E03.9 Hypothyroidism, unspecified; M17.12 Unilateral primary osteoarthritis, left knee; M48.07 Spinal stenosis, lumbosacral region; R00.1 Bradycardia, unspecified; F17.290 Nicotine dependence, other tobacco product, uncomplicated; I50.9 Heart failure, unspecified; E55.9 Vitamin D deficiency, unspecified; G20 Parkinson's disease; N40.0 Benign prostatic hyperplasia without lower urinary tract symptoms; K21.9 Gastro-esophageal reflux disease without esophagitis; E78.5 Hyperlipidemia, unspecified; G47.33 Obstructive sleep apnea (adult) (pediatric); Z96.651 Presence of right artificial knee joint; I25.2 Old myocardial infarction; Z95.0 Presence of cardiac pacemaker; Z95.818 Presence of other cardiac implants and grafts; Z86.73 Personal history of transient ischemic attack (TIA), and cerebral infarction without residual deficits; Z79.620 Long term (current) use of 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 biologic
CPT/HCPCS: 36415; 80048; 80053; 83690; 85027; 87635; 96361; 96365; 96367; 99223; 99231; 99285; 74176; 80197; 81003; 81015; 83735; 84443; 85025; 99232; 99239; J0131; J1644; J2270; J2543; J3480; J3490; J7517

== ENCOUNTER → 2022-11-25 10:21 | Outpatient (BNVA) | payer MEDICARE, SELFPAY | PROVIDERS: PCP Family Medicine; Visit Provider Psychiatry & Neurology Neurology | DX: Z09 Encounter for follow-up examination after completed treatment for conditions other than malignant neoplasm (principal); Z86.73 Personal history of transient ischemic attack (TIA), and cerebral infarction without residual deficits; I48.91 Unspecified atrial fibrillation; Z79.01 Long term (current) use of anticoagulants; I10 Essential (primary) hypertension; Z79.82 Long term (current) use of aspirin; R06.6 Hiccough; G20 Parkinson's disease | CPT/HCPCS: 99215 ==

== ENCOUNTER 2022-12-06 18:41 | Emergency (ER) | payer MEDICARE, SELFPAY ==
[2022-12-06 18:46] VITALS: BP 148/79; PULSE 68; RESP 16; TEMP 36.6; O2SAT 95
--- NOTE | 2022-12-06 18:48 | W.ED.GENAD ---
Discharge Plan Discharge Details Chief Complaint: Nk/Back Pain Clinical Impression: Tick bite with subsequent removal of tick, Acute exacerbation of chronic low back pain, Non-traumatic subconjunctival hemorrhage of right eye Primary Care Provider: Urbano Jimenez ED Provider: Santosh Murray [place] Meds and New Rx's Prescriptions: No Action atorvastatin 40 mg tablet 40 mg PO QHS (DME) blood sugar diagnostic Strip 1 ea Miscellaneous BID Qty: 180 3RF Rx Instructions: test twice daily omeprazole 20 mg capsule,delayed release(DR/EC) 20 mg PO DAILY PRN (Reason: GERD) Qty: 90 3RF magnesium gluconate 500 mg tablet 1,000 mg PO TID Rx Instructions: Takes 1000 mg AM and PM, takes 500 mg Lunchtime. -hb (DME) blood sugar diagnostic Strip See Rx Instructions .ROUTE .MEDSUPPLY Qty: 180 4RF Rx Instructions: test BID calcitriol 0.25 mcg capsule 0.5 mcg PO DAILY (DME) lancets 1 EACH misc 1 ea Miscellaneous DAILY Qty: 100 Rx Instructions: FOR ONE TOUCH ULTRA MINI METER. NO INSULIN. DIAGNOSIS CODE 250.00 mycophenolate mofetil [CellCept] 250 MG capsule 250 mg PO BID ascorbic acid (vitamin C) [Vitamin C] 500 MG capsule, extended release 500 mg PO TID Centrum Silver 0.4-300-250 mg-mcg-mcg tablet 2 tab PO DAILY nitroglycerin 0.4 mg tablet, sublingual 0.4 mg SL Q5M PRN (Reason: chest pain) Qty: 10 0RF tacrolimus [Prograf] 1 mg capsule 3 mg PO DIRECTED Patient Comments: 08-17-17 pt reports that currently he takes 2 tabs in the am and 1 tab in the pm. hb Rx Instructions: 2 in am and one in evening tamsulosin 0.4 mg capsule 0.4 mg PO DAILY Qty: 90 3RF metoprolol succinate 25 mg tablet extended release 24 hr 50 mg PO BID levothyroxine 137 mcg tablet 137 mcg PO DAILY Qty: 90 1RF amlodipine 5 mg tablet 5 mg PO DAILY Qty: 90 3RF aspirin [Adult Low Dose Aspirin] 81 mg tablet,delayed release (DR/EC) 81 mg PO DAILY acetaminophen 500 mg capsule 500 mg PO Q8H PRN PRN (Reason: pain) (DME) blood-glucose meter Misc 1 ea Miscellaneous DAILY Qty: 1 0RF Rx Instructions: FOR ONE TOUCH ULTRA MINI; Dx E11.9, to keep HbA1c less than 6.5% glipizide 10 mg tablet extended release 24hr 10 mg PO BID Qty: 180 3RF hydralazine 100 mg tablet 100 mg PO BID Qty: 60 0RF Medical Decision Making This is an overall well-appearing normothermic and not tachycardic 72-year-old male with acute on chronic low back pain. He reports history of nephrolithiasis and is concerned that he may have ureterolithiasis and as result will complete a dry CT scan of his abdomen pelvis. He has no history of malignancy however based on his age will obtain a lumbar spinal reconstructions to assess for any pathological fractures given the patient's midline tenderness. Given his tacrolimus and mycophenolate use he is certainly immune suppressed and at risk for opportunistic infections. He has had no GI symptoms to suggest increased risk for cytomegalovirus. He is not anticoagulated to suggest increased risk for spinal epidural hematoma. Furthermore he has had no recent lumbar spinal procedures. He denies IV drug use and fevers so my suspicion is exceedingly low for spinal epidural abscess. He has had no recent loss of bowel nor bladder control to suggest increased risk for cauda equina. No rash to back to suggest zoster. Diverticulitis and appendicitis less likely given soft nontender abdomen. Similarly acute cholecystitis is less likely in the absence of fevers right upper quadrant pain without diarrhea. I considered sepsis however the patient vitals are not consistent with SIRS criteria and I was not suspicious for sepsis so I did not draw blood cultures check a lactate nor treat empirically with IV antibiotics. Bilateral lower extremities neurovascularly intact so not concerned for any vascular catastrophe or aortic dissection. Patient has been urinating normally so not concerned for acute urinary retention. He denies dysuria and frequency so not concern for UTI. No symptoms of sciatica given no radiation into the legs. Given no abdominal pain I am not concerned for prostatitis. No pain out of proportion to suggest necrotizing soft tissue infection. No nuchal rigidity to suggest meningitis. During my assessment patient was found to have dog tick on his right flank. It was not engorged. I removed the tick at bedside. Will treat symptomatically with Lidoderm patch, acetaminophen, and low-dose diazepam. Will check electrolytes and dry CT scan. We will sign patient out to the oncoming overnight provider, Dr. Plascencia pending follow-up of his labs and CT scan. Chronic conditions affecting the care of the patient: Immunosuppression, diabetes, CKD History obtained from an outside historian: Patient's External record review: [facility] EMR Medications: Lidoderm diazepam acetaminophen Social determinants of health affecting disposition: N/A Management discussed with: Dr. Plascencia Treatment/interventions considered: Hospitalization but deferred pending reassessment by Dr. Plascencia. Response to therapies provided: TBD HPI General Date/Time Provider Initiated Documentation: 12/06/22 18:48. HPI Narrative: This is a 72-year-old male with history of renal transplant remote prior laminectomy in 2019 and low back pain for the past approximately 1 month. He is no longer on anticoagulation. He reports that he has not lost control of his bowels or bladder. He said no lower extremity weakness. He has not noticed any rash to his back. He has not taken any falls. He rarely smokes a cigar but denies routine ethanol. He reports history of nephrolithiasis but not ureterolithiasis. He has not had any recent trauma to his back. He did have diverticulitis 1 month ago with microperforation which led to transfer to [facility]. He has not had any abdominal pain dysuria frequency fevers vomiting nor chest pain. He has been adherent with his tacrolimus and mycophenolate. He reports that he has a pacemaker and remotely has had a Watchman procedure. Related Data Home Medications Medication Instructions Recorded Confirmed lancets 28 gauge #100 ea 09/27/14 12/06/22 mycophenolate mofetil 250 mg 250 mg PO BID 04/15/16 12/06/22 capsule (CellCept) ascorbic acid (vitamin C) 500 mg 500 mg PO TID 09/05/16 12/06/22 capsule,extended release (Vitamin C) atorvastatin 40 mg tablet 40 mg PO QHS 03/04/19 12/06/22 blood sugar diagnostic #180 strips 03/04/19 12/06/22 omeprazole 20 mg capsule,delayed 20 mg PO DAILY PRN GERD #90 caps 06/17/19 12/06/22 release [id number] acid 0.4 2 tab PO DAILY 01/16/21 12/06/22 mg-lycopene 300 mcg-lutein 250 mcg tablet (Centrum Silver) hydralazine 100 mg tablet 100 mg PO BID #60 tabs 03/01/21 12/06/22 calcitriol 0.25 mcg capsule 0.5 mcg PO DAILY 04/10/21 12/06/22 magnesium gluconate 500 mg tablet 1,000 mg PO TID 04/23/21 12/06/22 nitroglycerin 0.4 mg sublingual 0.4 mg sublingual Q5M PRN chest 11/01/21 12/06/22 tablet pain #10 tabs tacrolimus 1 mg capsule, 3 mg PO DIRECTED 01/13/22 12/06/22 immediate-release (Prograf) tamsulosin 0.4 mg capsule 0.4 mg PO DAILY #90 tab-caps 02/13/22 12/06/22 levothyroxine 137 mcg tablet 137 mcg PO DAILY #90 tab-caps 04/16/22 12/06/22 metoprolol succinate 25 mg 50 mg PO BID 04/16/22 12/06/22 tablet,extended release 24 hr amlodipine 5 mg tablet 5 mg PO DAILY #90 tabs 05/19/22 12/06/22 acetaminophen 500 mg capsule 500 mg PO Q8H PRN PRN pain 07/17/22 12/06/22 aspirin 81 mg tablet,delayed 81 mg PO DAILY 07/17/22 12/06/22 release (Adult Low Dose Aspirin) blood sugar diagnostic #180 ea 09/30/22 12/06/22 blood-glucose meter #1 ea 10/06/22 12/06/22 glipizide 10 mg tablet, extended 10 mg PO BID #180 tabs 12/04/22 12/06/22 release 24 hr Previous Rx's Medication Instructions Recorded blood sugar diagnostic #180 strips 03/04/19 omeprazole 20 mg capsule,delayed 20 mg PO DAILY PRN GERD #90 caps 06/17/19 release hydralazine 100 mg tablet 100 mg PO BID #60 tabs 03/01/21 nitroglycerin 0.4 mg sublingual 0.4 mg sublingual Q5M PRN chest 11/01/21 tablet pain #10 tabs tamsulosin 0.4 mg capsule 0.4 mg PO DAILY #90 tab-caps 02/13/22 levothyroxine 137 mcg tablet 137 mcg PO DAILY #90 tab-caps 04/16/22 amlodipine 5 mg tablet 5 mg PO DAILY #90 tabs 05/19/22 blood sugar diagnostic #180 ea 09/30/22 blood-glucose meter #1 ea 10/06/22 glipizide 10 mg tablet, extended 10 mg PO BID #180 tabs 12/04/22 release 24 hr Allergies Allergy/AdvReac Type Severity Reaction Status Date / Time strawberry Allergy Unknown Other (See Verified 12/06/22 18:50 Comment) General ALICIA: 3 PFSH All Active Problems Tick bite with subsequent removal of tick (Acute) Acute exacerbation of chronic low back pain (Acute) Non-traumatic subconjunctival hemorrhage of right eye (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) Diverticulitis of intestine with perforation (Acute) Pacemaker (Acute) dual lead [employer] Hoffman 01/31/2022 RIGHT SIDED Presence of Watchman left atrial appendage closure device (Acute) [facility] 05/27 Long-term current use of 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 biologic agent (Chronic) Vitamin D deficiency (Acute ~05/2022) Osteoarthritis of left knee (Acute) Parkinsonism (Acute) Tremor (Acute) Acute diverticulitis (Acute) - confirmed by CT , inpt at [facility] Bradycardia (Chronic) Vasogenic edema (Acute) Hypertension (Chronic) Hiccups (Acute) 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, tx at [facility], anticoagulant stopped Altered mental status (Acute) Hypertensive retinopathy (Acute ~09/27/20) [place]E 09/27/20- MILD TO MODERATE-KB Spinal stenosis (Acute) L5-S1 Subsequent non-ST elevation (NSTEMI) myocardial infarction within 4 weeks of initial infarction (Acute) stents Status post rotator cuff repair (Acute) Postoperative stiffness of total knee replacement (Chronic) Olecranon bursitis, left elbow (Chronic) Arthritis of left elbow (Acute) Tubular adenoma (Acute 09/12/15) 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 Microscopic hematuria (Acute 05/21/12) [place] [facility] [place] 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 Need dialysis or transplant. 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 s/p hernia repair b. s/p knee arthroscopy c. s/p unspecified shoulder surgery d. s/p vasectomy Medical History Atrial fibrillation BPH (benign prostatic hyperplasia) CHF (congestive heart failure) Chronic kidney disease CVA (cerebral vascular accident) Diabetes Fistula GERD (gastroesophageal reflux disease) Hepatitis C Treated and cured History of diverticulitis (09/14/22) HTN (hypertension) Hyperlipemia Hypothyroidism Myocardial infarction Obstructive sleep apnea Surgical History Arthroplasty of knee 2005-right BIOPSY, KIDNEY (10/16/14) [facility]-RIGHT Colonoscopy - [facility] [place] H/O bladder repair surgery H/O vasectomy History of arthroscopy of knee History of biopsy History of hernia repair KIDNEY TRANSPLANT (09/16/15) [facility]-09/16/15 Rotator Cuff Repair left Family History Mother Essential hypertension Father Myocardial infarction Stroke Brother Essential hypertension Neoplasm Social History Smoking/Tobacco Use Status: Current-Occasional Tobacco Type: cigars Tobacco: How many years used: 20 Smoking risk assessment performed?: Yes Alcohol Intake: never Drug use: Occasionally Substance use type: marijuana Adopted: No Caregiver/Support person: Yes Foster care: No Household members: spouse Housing: house Number of Children: 2 number of grandchildren: 1 Communication Needs: None Education Level: high school 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 Pets and animals: Yes Pets and animals: dog(s) Sexually active: No Do you think of yourself as: straight/heterosexual Current gender identity: male What is your relationship status?: How often do you talk on the phone with friends or family?: three or more times per week Do you belong to any clubs or organized social groups?: no Panel score (0-1 are the most socially isolated patients): 2 Idalia/Lutheran: None Special idalia needs: No Seatbelt use: always Helmet use: Yes Helmet use: always Drive intox or ride w/intox drivers license examiner: No Do you feel safe at home: Yes Do you feel safe in your relationship?: Yes Exam Narrative Exam Narrative: General: Well-appearing in no acute distress speaking in complete sentences. Head: Normocephalic, atraumatic. Eye: Pupils equal, round reactive to light. Right-sided small subconjunctival hemorrhage medial aspect. Extraocular eye movements intact. No conjunctival injection. No scleral icterus. Ear, nose, mouth, throat: Grossly normal inspection. Normal voice, handling secretions normally. Neck: Trachea midline. Cardiovascular: Well-perfused distal extremities. Regular rate and rhythm. No murmurs. Respiratory: Nonlabored respiration. Clear lungs bilaterally. Soft nontender abdomen. Back: Bilaterally no CVA tenderness.On the right flank there is a dog tick that is not engorged. Patient has midline lumbar spinal tenderness. No step-offs. No deformities. Gastrointestinal: Nondistended abdomen. Musculoskeletal: No significant lower extremity pitting edema. Moving all 4 extremities spontaneously. 5 out of 5 strength dorsi and plantarflexion at the feet. Patient is able to straight leg raise bilaterally. Bilateral feet warm well perfused with 2+ PT and DP pulses. Skin: Normal for age and race, grossly normal temperature and turgor. No acute rash. Neurologic: Alert and appropriate, no apparent acute deficits. Psychiatric: Mood and manner are appropriate. Grooming and personal hygiene are appropriate.
[2022-12-06 19:05] LABS: Bilirubin Negative (Negative); Blood Negative (Negative); Clarity Clear (Clear); Glucose Negative (Negative); Ketones Negative (Negative); Leukocyte Esterase Negative (Negative); Nitrite Negative (Negative); Urobilinogen 0.2 mg/dL (Up to 0.2)
[2022-12-06 19:09] LABS: Bacteria Negative HPF (Negative); Crystals Negative HPF (Negative); Epithelial Cells Rare HPF (Negative); RBC 0-2 HPF (0-2); WBC 0-2 HPF (0-5)
[2022-12-06 19:10] LABS: C & S Indicated? No; Casts Negative LPF (Negative); Mucus Trace (Negative)
--- NOTE | 2022-12-06 19:15 | DI.CT_ITS ---
Exam(s) CT LUMBAR SPINE RECONS CT ABDOMEN PELVIS WO EXAM: CT ABDOMEN PELVIS WO and CT lumbar spine recons CLINICAL HISTORY: Low back pain. TECHNIQUE: Imaging Protocol: Axial computed tomography images with coronal and sagittal reformatted images were created and reviewed. COMPARISON: CT CT CHEST/ABD/PEL WO from 02/25/[address] ABDOMEN PELVIS WO from 09/12/[address] LUMBAR SPINE RECONS from 12/06/2022 FINDINGS: ABDOMEN: Lung Bases: Cardiomegaly. The distal wires of a cardiac pacing device are seen. Minimal basilar ate lectasis. Liver: Normal density. No measurable mass. Gallbladder and biliary tract: Cholelithiasis. No significant biliary ductal dilatation. Pancreas: Normal density, no abnormal calcifications or inflammatory process. Spleen: Normal. Kidneys: Marked bilateral renal atrophy.Three stones or surgical clips are again seen in or adjacent to the mid left ureter resulting in moderately severe left hydronephrosis. There is a renal transpla nt in the left pelvis. There is no evidence of nephrolithiasis or hydronephrosis. Adrenal glands: No mass is seen. Lymph nodes: Within normal limits. Abdominal Aorta: Abdominal portion non-dilated. Atherosclerosis. PELVIS: Bladder:Incompletely distended no gross abnormality. There is a question of asymmetric thickening of the wall of the urinary bladder posteriorly and on the right. Bowel: No obstruction or bowel wall thickening. Appendix is unremarkable. There is diverticulosis se en in the colon, but no evidence of acute diverticulitis. Question of mild thickening versus underdi stention of the wall of the distal esophagus. Mild esophagitis cannot be excluded. Peritoneal cavity: No ascites, collection or mesenteric inflammatory response. No free air. Reproductive organs: The prostate gland is mildly enlarged. Bones: Within normal limits. Soft Tissues: There is a fat containing left inguinal hernia. Lumbar spine CT recons: Age-appropriate multilevel degenerative changes are present throughout the mike mbar spine. Findings are characterized by joint space narrowing and endplate osteophytes. Vacuum disc s are seen at T12-L1 and L1-L2. No acute fractures or subluxations are present. No aggressive osseous lesions are present. There is no spondylolysis or spondylolisthesis. There is mild bilateral neural foraminal narrowing at T12-L1 and L1-L2. There is moderate to severe narrowing of the neural foramen bilaterally at L5-S1. IMPRESSION: 1. Cholelithiasis without CT evidence of acute cholecystitis. 2. Severe atrophy of the [place] kidneys bilaterally. 3. Stable hydronephrosis of the left renal collecting system to the level adjacent to the renal trans plant. Stones or surgical clips are seen in or adjacent to the left ureter at the level of dilatatio n. 4. Left pelvic renal transplant without abnormality. 5. Question of asymmetric wall thickening of the posterior and right aspect of the urinary bladder. Bladder mass or cystitis. Follow-up as clinically appropriate. 6. Multilevel degenerative changes in the lumbar spine resulting in bilateral neural foraminal narrow ing as described above. No acute fractures or subluxations are seen in the lumbar spine. RADIATION DOSE DELIVERED: 975.64 mGy.cm Total DLP DATA REPOSITORY: All CT scans at this facility are submitted to the National Radiology Data Registry (NRDR) Dose Index Registry (DIR) with the [employer] (ACR). RADIATION OPTIMIZATION: All CT scans at this facility use at least one of these dose optimization te chniques: automated exposure control; mA and/or kV adjustment per patient size (includes targeted exa ms where dose is matched to clinical indication); or iterative reconstruction.
[2022-12-06 19:32] LABS: Abs Immature Grans 0.03 10^3/uL (0.0-0.06); Absolute Basophil Count 0.08 10^3/uL (0.0-0.2); Absolute Eosinophil Count 0.41 10^3/uL (0.0-0.7); Absolute Lymphocyte Count 1.68 10^3/uL (1.2-3.4); Absolute Monocyte Count 0.62 10^3/uL (0.1-0.8); Absolute Neutrophil Count 5.28 10^3/uL (1.2-6.7); Eosinophils % 5.1; HCT 41.6 % (40.0-50.0); HGB 14.4 g/dL (13.5-17.5); Immature Grans % 0.4; Lymphocytes % 20.7; MCH 30.6 pg (27.0-33.0); MCHC 34.6 % (32.0-36.0); MCV 89 fL (80-95); MPV 9.3 fL (8.0-11.0); Monocytes % 7.7; Neutrophils % 65.1; Platelet Count 254 10^3/uL (130-400); RDW 12.9 % (11.8-14.1); RDW-SD 41.8 fL
[2022-12-06] MEDS: Acetaminophen 500 MG TAB 1000 MG PO (19:33)
[2022-12-06] MEDS: Lidocaine 5% Patch 1 PATCH TP ×2 (19:34→21:12)
[2022-12-06] MEDS: diazePAM 5 MG TAB PO (19:34)
[2022-12-06 19:47] LABS: ALT 35 U/L (16-63); AST 25 U/L (15-37); Albumin 3.5 g/dL (3.4-5.0); Alkaline Phosphatase 91 U/L (46-116); Anion Gap 6.3 mmol/L (3-11); BUN 19 mg/dL (7-18); Bilirubin, Total 2.2 mg/dL (0.2-1.0); CO2 30.7 mmol/L (21.0-32.0); CREATININE 1.6 mg/dL (0.70-1.30); Calcium 9.5 mg/dL (8.5-10.1); Chloride 104 mmol/L (98-107); Estimated GFR 44.93 (mL/min/1.73m2); Glucose 165 mg/dL (74-106); Potassium 3.6 mmol/L (3.5-5.1); Sodium 141 mmol/L (136-145); Total Protein 7.7 g/dL (6.4-8.2)
--- NOTE | 2022-12-06 20:42 | DI.VRAD_ITS ---
PROCEDURE INFORMATION: Exam: CT Abdomen And Pelvis Without Contrast Exam date and time: 12/06/2022 7:40 PM Age: 72 years old Clinical indication: Other: Lower back pain TECHNIQUE: Imaging protocol: Computed tomography of the abdomen and pelvis without contrast. Total images: [id number] COMPARISON: CT ABDOMEN PELVIS WO 09/12/2022 5:55 PM FINDINGS: Tubes, catheters and devices: Pacemaker. Lungs: New minimal bibasilar atelectasis. No suspicious pulmonary masses. Pleural spaces: No pleural effusion or pneumothorax. Heart: Heart size is normal. No pericardial effusion. Mediastinal space: Mild chronic distal esophageal wall thickening could indicate mild esophagitis but is nonspecific, stable. Liver: Normal. No mass. Gallbladder and bile ducts: Cholelithiasis with no evidence of cholecystitis. Pancreas: Normal. No ductal dilation. Spleen: Normal. No splenomegaly. Adrenal glands: Normal. No mass. Kidneys and ureters: Bilateral [place] kidneys are severely atrophic, stable. Chronic left hydronephrosis involving the left pelvicalyceal system and ureter to the level of surgical clips in the pelvis, stable. Transplant kidney in the left lower quadrant appears normal with no masses, stones or hydronephrosis. Stomach and bowel: Stomach, small bowel loops and colon demonstrate a nonobstructive bowel gas pattern. Colonic diverticulosis without diverticulitis. Appendix: Normal appendix. Intraperitoneal space: Unremarkable. No free air. No significant fluid collection. Vasculature: Unremarkable. No abdominal aortic aneurysm. Lymph nodes: Unremarkable. No enlarged lymph nodes. Urinary bladder: Urinary bladder appears normal. Reproductive: Seminal vesicles and prostate gland are normal in size. There are prostate calcifications, stable. Bones/joints: Moderate disc space narrowing and spurring at L5-S1. Scattered spurs or syndesmophytes multiple levels thoracic and lumbar spine. Multilevel mild vacuum change and Schmorl's nodes. The appearance is stable. Soft tissues: Unremarkable. IMPRESSION: 1. Cholelithiasis with no evidence of cholecystitis, stable. 2. Bilateral [place] kidneys are severely atrophic, stable. 3. Chronic left hydronephrosis involving the left pelvicalyceal system and ureter to the level of surgical clips in the pelvis, stable. 4. Transplant kidney in the left lower quadrant appears normal with no masses, stones or hydronephrosis. 5. Mild chronic distal esophageal wall thickening could indicate mild esophagitis but is nonspecific, stable. 6. Colonic diverticulosis without diverticulitis. Dictated and Authenticated by: Khushbu Vega MD. Ordering:GORDO Frost MD
--- NOTE | 2022-12-06 20:46 | ED.PROG_ITS ---
Date of service: 12/06/22 Time of Service: 20:46 Medical Decision Making Pt signed out to me pending labs and imaging none of which shows any acute findings. Pt sleeping on reassessment and awakens easily to voice, states his pain is significantly better. He has no saddle anesthesia, no fevers. Suspect musculoskeletal back pain, will provide short course of diazepam to use as needed and advised to use lidocaine patches over the counter. He will f/u with his pcp, return precautions given Differential Diagnosis Differential Diagnosis: musculoskeltal back pain, muscle spasm Imaging Data Radiologic Study: Attestation: I personally reviewed and interpreted this imaging study as follows: Imaging: CT Scan Radiologist's impression: IMPRESSION: 1. Cholelithiasis with no evidence of cholecystitis, stable. 2. 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 3. Chronic left hydr onephrosis involving the left pelvicalyceal system and ureter to the level of surgical clips in the pelvis, stable. 4. Transplant kidney in the left lower quadrant appears normal with no masses, stones or hydronephrosis. 5. Mild chronic distal esophageal wall thickening could indicate mild esophagitis but is nonspecific, stable. 6. Colonic diverticulosis without diverticulitis. Radiologic Study #2: Attestation: I personally reviewed and interpreted this imaging study as follows: Imaging: CT Scan Radiologist's impression: IMPRESSION: 1. No acute fracture or dislocation. 2. Degenerative change, stable compared with recent prior studies. 3. Possible diffuse idiopathic skeletal hyperostosis. Sign Out Sign Out Data: Sign Out Comment: Please follow-up CBC, comprehensive metabolic panel, and CT scan and reassess acute on chronic low back pain in this medically complicated immunosuppressed patient. Last updated by Santosh Murray MD at 12/06/22 19:43 Discharge Plan Disposition Patient Disposition: Home Condition: Stable Discharge Details Clinical Impression: Tick bite with subsequent removal of tick, Acute exacerbation of chronic low back pain, Non-traumatic subconjunctival hemorrhage of right eye Primary Care Provider: Urbano Jimenez ED Provider: Tal Plascencia Home Meds and New Rx's Prescriptions: New diazepam [Valium] 5 mg tablet 5 mg PO BID PRN (Reason: muscle spasm) Qty: 14 0RF Continued atorvastatin 40 mg tablet 40 mg PO QHS (DME) blood sugar diagnostic Strip 1 ea Miscellaneous BID Qty: 180 3RF Rx Instructions: test twice daily omeprazole 20 mg capsule,delayed release(DR/EC) 20 mg PO DAILY PRN (Reason: GERD) Qty: 90 3RF magnesium gluconate 500 mg tablet 1,000 mg PO TID Rx Instructions: Takes 1000 mg AM and PM, takes 500 mg Lunchtime. -hb (DME) blood sugar diagnostic Strip See Rx Instructions .ROUTE .MEDSUPPLY Qty: 180 4RF Rx Instructions: test BID calcitriol 0.25 mcg capsule 0.5 mcg PO DAILY (DME) lancets 1 EACH misc 1 ea Miscellaneous DAILY Qty: 100 Rx Instructions: FOR ONE TOUCH ULTRA MINI METER. NO INSULIN. DIAGNOSIS CODE 250.00 mycophenolate mofetil [CellCept] 250 MG capsule 250 mg PO BID ascorbic acid (vitamin C) [Vitamin C] 500 MG capsule, extended release 500 mg PO TID Centrum Silver 0.4-300-250 mg-mcg-mcg tablet 2 tab PO DAILY nitroglycerin 0.4 mg tablet, sublingual 0.4 mg SL Q5M PRN (Reason: chest pain) Qty: 10 0RF tacrolimus [Prograf] 1 mg capsule 3 mg PO DIRECTED Patient Comments: 08-17-17 pt reports that currently he takes 2 tabs in the am and 1 tab in the pm. hb Rx Instructions: 2 in am and one in evening tamsulosin 0.4 mg capsule 0.4 mg PO DAILY Qty: 90 3RF metoprolol succinate 25 mg tablet extended release 24 hr 50 mg PO BID levothyroxine 137 mcg tablet 137 mcg PO DAILY Qty: 90 1RF amlodipine 5 mg tablet 5 mg PO DAILY Qty: 90 3RF aspirin [Adult Low Dose Aspirin] 81 mg tablet,delayed release (DR/EC) 81 mg PO DAILY acetaminophen 500 mg capsule 500 mg PO Q8H PRN PRN (Reason: pain) (DME) blood-glucose meter Misc 1 ea Miscellaneous DAILY Qty: 1 0RF Rx Instructions: FOR ONE TOUCH ULTRA MINI; Dx E11.9, to keep HbA1c less than 6.5% glipizide 10 mg tablet extended release 24hr 10 mg PO BID Qty: 180 3RF hydralazine 100 mg tablet 100 mg PO BID Qty: 60 0RF Discharge Instructions Instructions: Acute Low Back Pain (ED) Additional Instructions: your labs and imaging did not show concerning findings at this time you can use over the counter lidocaine patches the diazepam may make you drowsy so do not drive if you take it follow up with your primary care provider within 1-2 weeks if you feel more ill, have severe worsening pain, fevers or difficulty urinating return to the emergency department
--- NOTE | 2022-12-06 20:50 | DI.VRAD_ITS ---
PROCEDURE INFORMATION: Exam: CT Lumbar Spine Without Contrast Exam date and time: 12/06/2022 7:40 PM Age: 72 years old Clinical indication: Low back pain TECHNIQUE: Imaging protocol: Computed tomography of the lumbar spine without contrast. Total images: 1382 COMPARISON: MR LUMBAR SPINE WO 04/28/2019 10:57 AM FINDINGS: Bones/joints: Bone mineralization is normal. Alignment is anatomic. No acute fracture or dislocation. Multilevel spurs or syndesmophytes throughout the lower thoracic and lumbar spine. This could indicate diffuse idiopathic skeletal hyperostosis. Mild disc space narrowing with vacuum changes and Schmorl's nodes T10-11, T11-12, T12-L1 and L1-L2. Small posterior vertebral body spurs and diffuse disc bulges T12-L1 and L1-L2 with mild bilateral neural foraminal narrowing. Normal disc spaces with small Schmorl's nodes at L2-L3, L3-L4 and L4-L5. Bilateral facet hypertrophy L4-L5. Left L5 laminotomy. Bilateral facet hypertrophy Moderate to severe disc space narrowing mild subchondral sclerosis at L5-S1. Small posterior disc osteophyte complex L5-S1 which along with facet hypertrophy causes moderate to severe bilateral neural foraminal narrowing. Soft tissues: Unremarkable. IMPRESSION: 1. No acute fracture or dislocation. 2. Degenerative change, stable compared with recent prior studies. 3. Possible diffuse idiopathic skeletal hyperostosis. Dictated and Authenticated by: Khushbu Vega MD. Ordering:GORDO Frost MD
[2022-12-06 21:13] VITALS: BP 137/68; PULSE 63; RESP 16; TEMP 37.1; O2SAT 95
== END 2022-12-06 21:14 | disposition home or self-care (01) ==
PROVIDERS: Emergency Medicine; Emergency Provider Emergency Medicine; PCP Family Medicine
DX: S20.469A Insect bite (nonvenomous) of unspecified back wall of thorax, initial encounter (principal); W57.XXXA Bitten or stung by nonvenomous insect and other nonvenomous arthropods, initial encounter; N18.9 Chronic kidney disease, unspecified; E11.9 Type 2 diabetes mellitus without complications; M54.59 Other low back pain; B30.3 Acute epidemic hemorrhagic conjunctivitis (enteroviral)
CPT/HCPCS: 36415; 80053; 99283; 74176; 81003; 81015; 85025; 99284

== ENCOUNTER 2023-03-26 03:42 | Outpatient (CLI) | payer MEDICARE, SELFPAY ==
[2023-03-26 11:44] LABS: HCT 42.6 % (40.0-50.0); HGB 14.5 g/dL (13.5-17.5); MCH 30.3 pg (27.0-33.0); MCV 89 fL (80-95); MPV 9.6 fL (8.0-11.0); Platelet Count 238 10^3/uL (130-400); RBC 4.78 10^6/uL (4.36-5.78); RDW 12.9 % (11.8-14.1); Reticulocyte 1.9 % (0.5-2.4); WBC 8.27 10^3/uL (4.4-10.8)
[2023-03-26 11:48] LABS: Bilirubin Negative (Negative); Blood Negative (Negative); Clarity Clear (Clear); Glucose Negative (Negative); Ketones Negative (Negative); Leukocyte Esterase Negative (Negative); Nitrite Negative (Negative); Specific Gravity 1.015 (1.005-1.025); Urobilinogen 0.2 mg/dL (Up to 0.2)
[2023-03-26 11:54] LABS: Bacteria Negative HPF (Negative); C & S Indicated? No; Casts 0-2 Hyaline LPF (Negative); Crystals Negative HPF (Negative); Epithelial Cells Rare HPF (Negative); Mucus Negative (Negative); RBC Negative HPF (0-2); WBC Negative HPF (0-5)
[2023-03-26 12:20] LABS: Hemoglobin A1C 6.6 % (<5.7)
[2023-03-26 12:22] LABS: ALT 36 U/L (16-63); AST 21 U/L (15-37); Albumin 3.3 g/dL (3.4-5.0); Alkaline Phosphatase 83 U/L (46-116); Anion Gap 8.1 mmol/L (3-11); BUN 19 mg/dL (7-18); Bilirubin, Total 2.1 mg/dL (0.2-1.0); CO2 29.9 mmol/L (21.0-32.0); CREATININE 1.6 mg/dL (0.70-1.30); Calcium 10.2 mg/dL (8.5-10.1); Calculated LDL 18 mg/dL (<100); Chloride 102 mmol/L (98-107); Cholesterol 91 mg/dL (<200); Estimated GFR 44.93 (mL/min/1.73m2); Glucose 156 mg/dL (74-106); HDL Cholesterol 41 mg/dL (40-60); Magnesium 1.5 mg/dL (1.8-2.4); Potassium 3.8 mmol/L (3.5-5.1); Sodium 140 mmol/L (136-145); Total Protein 7.7 g/dL (6.4-8.2); Triglyceride 162 mg/dL (<150)
[2023-03-26 12:47] LABS: PHOSPHORUS 2.9 mg/dL (2.6-4.7); Uric Acid 6.4 mg/dL (3.5-7.2)
[2023-03-26 13:12] LABS: COMMENT (LAB VIEW ONLY) 144.19 mg/dL; PROTEIN 37.8 mg/dL; Prot/Crea Ur Ratio 0.26
[2023-03-26 13:33] LABS: Vitamin D 25 Total 34.4 ng/mL (30-100)
[2023-03-26 23:06] LABS: Parathyroid Hormone,Intact 27 pg/mL (19-88)
[2023-03-27 09:42] LABS: Magnesium Random Urine 5.8 mg/dL (See Note); Phosphorus Urine 29.4 mg/dL (See Note)
[2023-03-27 09:51] LABS: Calcium (Random Urine) 15.5 mg/dL (See Note)
[2023-03-27 13:46] LABS: Tacrolimus 7.6 ng/mL (See Note)
[2023-03-28 20:33] LABS: BKV DNA Detect/Quant, P Undetected IU/mL (Undetected)
[2023-03-31 13:41] LABS: 1,25-Dihydroxyvitamin D 44 pg/mL (18-64)
== END 2023-03-26 03:43 | disposition home or self-care (01) ==
LOC: LBO 03:42
PROVIDERS: PCP Family Medicine; Visit Provider Internal Medicine Nephrology
DX: E55.9 Vitamin D deficiency, unspecified (principal); Z94.0 Kidney transplant status; Z79.899 Other long term (current) drug therapy; Z29.8 Encounter for other specified prophylactic measures
CPT/HCPCS: 36415; 80053; 80061; 82306; 83735; 85027; 87799; 80197; 81003; 81015; 82340; 82565; 82652; 83036; 83970; 84100; 84105; 84156; 84550; 85045

== ENCOUNTER 2023-06-19 03:05 | Outpatient (CLI) | payer MEDICARE, SELFPAY ==
[2023-06-19 12:18] LABS: HCT 43.1 % (40.0-50.0); HGB 14.7 g/dL (13.5-17.5); MCH 30.1 pg (27.0-33.0); MCHC 34.1 % (32.0-36.0); MCV 88 fL (80-95); MPV 9.4 fL (8.0-11.0); Platelet Count 235 10^3/uL (130-400); RBC 4.88 10^6/uL (4.36-5.78); RDW 13.2 % (11.8-14.1); RDW-SD 42.6 fL; WBC 7.11 10^3/uL (4.4-10.8)
[2023-06-19 12:19] LABS: Bilirubin Negative (Negative); Blood Negative (Negative); Clarity Clear (Clear); Glucose Negative (Negative); Ketones Negative (Negative); Leukocyte Esterase Negative (Negative); Nitrite Negative (Negative); Urobilinogen 0.2 mg/dL (Up to 0.2)
[2023-06-19 12:41] LABS: Bacteria Negative HPF (Negative); C & S Indicated? No; Crystals Few Amorphous HPF (Negative); Epithelial Cells Rare HPF (Negative); Mucus Negative (Negative); RBC Negative HPF (0-2); WBC Negative HPF (0-5)
[2023-06-19 12:56] LABS: COMMENT (LAB VIEW ONLY) 122.24 mg/dL; PROTEIN 37.2 mg/dL
[2023-06-19 13:01] LABS: Cholesterol 91 mg/dL (<200)
[2023-06-19 13:30] LABS: ALT 28 U/L (16-63); AST 18 U/L (15-37); Albumin 3.4 g/dL (3.4-5.0); Alkaline Phosphatase 82 U/L (46-116); Anion Gap 7.9 mmol/L (3-11); BUN 16 mg/dL (7-18); Bilirubin, Total 2.8 mg/dL (0.2-1.0); CO2 31.1 mmol/L (21.0-32.0); CREATININE 1.4 mg/dL (0.70-1.30); Calcium 9.9 mg/dL (8.5-10.1); Chloride 103 mmol/L (98-107); Estimated GFR 52.74 (mL/min/1.73m2); Glucose 118 mg/dL (74-106); Magnesium 1.5 mg/dL (1.8-2.4); PHOSPHORUS 2.9 mg/dL (2.6-4.7); Potassium 3.4 mmol/L (3.5-5.1); Sodium 142 mmol/L (136-145); Total Protein 7.7 g/dL (6.4-8.2)
[2023-06-19 14:25] LABS: Uric Acid 6.7 mg/dL (3.5-7.2)
[2023-06-20 12:51] LABS: Tacrolimus 9.5 ng/mL (See Note)
== END 2023-06-19 03:06 | disposition home or self-care (01) ==
LOC: LBO 03:06
PROVIDERS: PCP Family Medicine; Visit Provider Internal Medicine Nephrology
DX: Z94.0 Kidney transplant status (principal); Z79.899 Other long term (current) drug therapy
CPT/HCPCS: 36415; 80053; 85027; 80197; 81003; 81015; 82465; 82565; 83735; 84100; 84156; 84550

== ENCOUNTER 2023-07-15 04:22 | Outpatient (CLI) | payer MEDICARE, SELFPAY ==
[2023-07-15 14:11] LABS: TSH (W/Ref FT4) 3.62 uIU/mL (0.36-3.74)
[2023-07-15 22:46] LABS: T3,Free 3.9 pg/mL (2.8-5.3)
== END 2023-07-15 04:23 | disposition home or self-care (01) ==
LOC: LBO 04:22
PROVIDERS: PCP Family Medicine; Visit Provider Family Medicine
DX: E03.9 Hypothyroidism, unspecified (principal)
CPT/HCPCS: 36415; 84443; 84481

== ENCOUNTER → 2023-07-23 10:59 | Outpatient (BNVA) | payer MEDICARE, SELFPAY | PROVIDERS: PCP Family Medicine; Visit Provider Psychiatry & Neurology Neurology | DX: I63.9 Cerebral infarction, unspecified (principal); I61.0 Nontraumatic intracerebral hemorrhage in hemisphere, subcortical; R06.6 Hiccough; R25.1 Tremor, unspecified; R26.9 Unspecified abnormalities of gait and mobility; R53.81 Other malaise | CPT/HCPCS: 99213 ==

== ENCOUNTER 2023-08-20 04:44 | Outpatient (CLI) | payer MEDICARE, SELFPAY ==
[2023-08-20 15:19] LABS: HCT 43.9 % (40.0-50.0); HGB 14.7 g/dL (13.5-17.5); MCH 29.9 pg (27.0-33.0); MCHC 33.5 % (32.0-36.0); MCV 89 fL (80-95); MPV 9.7 fL (8.0-11.0); Platelet Count 251 10^3/uL (130-400); RBC 4.92 10^6/uL (4.36-5.78); RDW 13.2 % (11.8-14.1); RDW-SD 42.9 fL; Reticulocyte 1.9 % (0.5-2.4); WBC 8.42 10^3/uL (4.4-10.8)
[2023-08-20 15:35] LABS: COMMENT (LAB VIEW ONLY) 81.61 mg/dL; PROTEIN 32.1 mg/dL; Prot/Crea Ur Ratio 0.39
[2023-08-20 15:37] LABS: Bilirubin Negative (Negative); Blood Negative (Negative); Clarity Clear (Clear); Glucose Negative (Negative); Ketones Negative (Negative); Leukocyte Esterase Negative (Negative); Nitrite Negative (Negative); Specific Gravity 1.015 (1.005-1.025); Urobilinogen 0.2 mg/dL (Up to 0.2); pH 7.5 (5-8)
[2023-08-20 15:42] LABS: ALT 28 U/L (16-63); AST 21 U/L (15-37); Albumin 3.4 g/dL (3.4-5.0); Alkaline Phosphatase 95 U/L (46-116); BUN 19 mg/dL (7-18); Bilirubin, Total 3.3 mg/dL (0.2-1.0); CREATININE 1.6 mg/dL (0.70-1.30); Calcium 9.7 mg/dL (8.5-10.1); Calculated LDL 19 mg/dL (<100); Chloride 104 mmol/L (98-107); Cholesterol 89 mg/dL (<200); Estimated GFR 44.65 (mL/min/1.73m2); Glucose 189 mg/dL (74-106); HDL Cholesterol 36 mg/dL (40-60); Magnesium 1.6 mg/dL (1.8-2.4); Potassium 3.5 mmol/L (3.5-5.1); Sodium 146 mmol/L (136-145); Total Protein 7.9 g/dL (6.4-8.2); Triglyceride 171 mg/dL (<150)
[2023-08-20 15:49] LABS: Bacteria Negative HPF (Negative); C & S Indicated? No; Casts Negative LPF (Negative); Crystals Few Amorphous HPF (Negative); Epithelial Cells Rare HPF (Negative); Mucus Negative (Negative); RBC 0-2 HPF (0-2); WBC Negative HPF (0-5)
[2023-08-20 17:10] LABS: PHOSPHORUS 3.2 mg/dL (2.6-4.7); Uric Acid 6.6 mg/dL (3.5-7.2)
[2023-08-20 17:32] LABS: Hemoglobin A1C 6.7 % (<5.7)
[2023-08-20 22:31] LABS: Parathyroid Hormone,Intact 44 pg/mL (19-88)
[2023-08-21 09:05] LABS: Calcium (Random Urine) 14.4 mg/dL (See Note); Phosphorus Urine 28.9 mg/dL (See Note)
[2023-08-21 11:44] LABS: Tacrolimus 4.4 ng/mL (See Note)
[2023-08-22 13:46] LABS: BKV DNA Detect/Quant, P Undetected IU/mL (Undetected)
[2023-08-26 15:30] LABS: 1,25-Dihydroxyvitamin D 38 pg/mL (18-64)
== END 2023-08-20 04:45 | disposition home or self-care (01) ==
LOC: LBO 04:44
PROVIDERS: PCP Family Medicine; Visit Provider Internal Medicine Nephrology
DX: Z94.0 Kidney transplant status (principal); Z79.899 Other long term (current) drug therapy; E55.9 Vitamin D deficiency, unspecified
CPT/HCPCS: 36415; 80053; 80061; 82306; 83735; 85027; 80197; 81003; 81015; 82340; 82565; 82652; 83036; 83970; 84100; 84105; 84156; 84550; 85045; 87799

== ENCOUNTER → 2023-08-26 13:40 | Outpatient (BNVA) | payer MEDICARE, SELFPAY | PROVIDERS: PCP Family Medicine; Referring Provider Family Medicine; Visit Provider Physician Assistant | DX: I48.91 Unspecified atrial fibrillation (principal); Z95.0 Presence of cardiac pacemaker; Z95.818 Presence of other cardiac implants and grafts; I48.0 Paroxysmal atrial fibrillation | CPT/HCPCS: 93280 ==

== ENCOUNTER 2023-09-23 14:14 | Observation (INO) | payer MEDICARE, SELFPAY ==
[2023-09-23 14:17] VITALS: BP 153/60; PULSE 86; RESP 18; TEMP 36.6; O2SAT 95
--- NOTE | 2023-09-23 14:23 | ED.GENADUL_ITS ---
Discharge Plan Disposition Patient Disposition: Admit to [facility] Condition: Stable Discharge Details Clinical Impression: Acute diverticulitis Primary Care Provider: Urbano Jimenez ED Provider: Alessandro Duarte Meds and New Rx's Prescriptions: No Action (DME) blood sugar diagnostic Strip 1 ea Miscellaneous BID Qty: 180 3RF Rx Instructions: test twice daily omeprazole 20 mg capsule,delayed release(DR/EC) 20 mg PO DAILY PRN (Reason: GERD) Qty: 90 3RF magnesium gluconate 500 mg tablet 1,000 mg PO TID Rx Instructions: Takes 1000 mg AM and PM, takes 500 mg Lunchtime. -hb (DME) blood sugar diagnostic Strip See Rx Instructions .ROUTE .MEDSUPPLY Qty: 180 4RF Rx Instructions: test BID saxagliptin 5 mg tablet 5 mg PO DAILY Qty: 90 3RF metoprolol succinate 25 mg tablet extended release 24 hr 75 mg PO BID Qty: 540 3RF Stool Softener 50 mg capsule 50 mg PO DAILY nitroglycerin 0.4 mg tablet, sublingual 0.4 mg SL Q5M PRN (Reason: chest pain) Qty: 30 0RF (DME) lancets 1 EACH misc 1 ea Miscellaneous DAILY Qty: 100 Rx Instructions: FOR ONE TOUCH ULTRA MINI METER. NO INSULIN. DIAGNOSIS CODE 250.00 mycophenolate mofetil [CellCept] 250 MG capsule 250 mg PO BID ascorbic acid (vitamin C) [Vitamin C] 500 MG capsule, extended release 500 mg PO TID Centrum Silver 0.4-300-250 mg-mcg-mcg tablet 2 tab PO DAILY aspirin [Adult Low Dose Aspirin] 81 mg tablet,delayed release (DR/EC) 81 mg PO DAILY acetaminophen 500 mg capsule 500 mg PO Q8H PRN PRN (Reason: pain) (DME) blood-glucose meter Misc 1 ea Miscellaneous DAILY Qty: 1 0RF Rx Instructions: FOR ONE TOUCH ULTRA MINI; Dx E11.9, to keep HbA1c less than 6.5% glipizide 10 mg tablet extended release 24hr 10 mg PO BID Qty: 180 3RF amlodipine 5 mg tablet 5 mg PO DAILY Qty: 90 3RF levothyroxine 137 mcg tablet 137 mcg PO DAILY Qty: 90 3RF calcitriol 0.25 mcg capsule 0.5 mcg PO DAILY Qty: 180 3RF atorvastatin 40 mg tablet 40 mg PO QHS Qty: 90 3RF tamsulosin 0.4 mg capsule 0.4 mg PO DAILY Qty: 90 3RF tacrolimus [Prograf] 1 mg capsule 1 mg PO BID Jardiance 10 mg tablet 10 mg PO DAILY hydralazine 100 mg tablet 100 mg PO BID Qty: 60 0RF HPI General Mode of arrival: ambulatory . Date/Time Provider Initiated Documentation: 09/23/23 14:21 . Limitations to Documentation: no limitations . Information obtained by: patient . HPI Narrative: Patient presents to ED with low back pain which began about 3 days ago. It is mostly right sided in nature. It is worse with movement. Denies any injuries or trauma. Concerned due to the fact that he has known nephrolithiasis and his renal physicians at [facility] have always warned him regarding back pain and potential ureteral colic. He is a transplant patient with a graft kidney in the left pelvis. He denies any urinary symptoms or fever. Denies any abdominal pain or vomiting. Has chronic and unchanged diarrhea. Has no numbness, weakness, gait disturbance. Has no bladder or bowel dysfunction. Denies any chest pain, shortness of breath, cough. Related Data Home Medications Medication Instructions Recorded Confirmed lancets 28 gauge #100 ea 09/27/14 09/23/23 mycophenolate mofetil 250 mg 250 mg PO BID 04/15/16 09/23/23 capsule (CellCept) ascorbic acid (vitamin C) 500 mg 500 mg PO TID 09/05/16 09/23/23 capsule,extended release (Vitamin C) blood sugar diagnostic #180 strips 03/04/19 09/23/23 omeprazole 20 mg capsule,delayed 20 mg PO DAILY PRN GERD #90 caps 06/17/19 0 09/23/23 release [id number] acid 0.4 2 tab PO DAILY 01/16/21 09/23/23 mg-lycopene 300 mcg-lutein 250 mcg tablet (Centrum Silver) hydralazine 100 mg tablet 100 mg PO BID #60 tabs 03/01/21 09/23/23 magnesium gluconate 500 mg tablet 1,000 mg PO TID 04/23/21 09/23/23 acetaminophen 500 mg capsule 500 mg PO Q8H PRN PRN pain 07/17/22 09/23/23 aspirin 81 mg tablet,delayed 81 mg PO DAILY 07/17/22 09/23/23 release (Adult Low Dose Aspirin) blood sugar diagnostic #180 ea 09/30/22 09/23/23 blood-glucose meter #1 ea 10/06/22 09/23/23 glipizide 10 mg tablet, extended 10 mg PO BID #180 tabs 12/04/22 09/23/23 release 24 hr nitroglycerin 0.4 mg sublingual 0.4 mg sublingual Q5M PRN chest 12/22/22 09/23/23 tablet pain #30 tabs docusate sodium 50 mg capsule 50 mg PO DAILY 03/26/23 09/23/23 (Stool Softener) amlodipine 5 mg tablet 5 mg PO DAILY #90 tabs 04/16/23 09/23/23 levothyroxine 137 mcg tablet 137 mcg PO DAILY #90 tab-caps 05/01/23 09/23/23 atorvastatin 40 mg tablet 40 mg PO QHS #90 tabs 05/26/23 09/23/23 calcitriol 0.25 mcg capsule 0.5 mcg (2 x 0.25 mcg) PO DAILY 05/26/23 09/23/23 #180 caps tamsulosin 0.4 mg capsule 0.4 mg PO DAILY #90 tab-caps 05/26/23 09/23/23 saxagliptin 5 mg tablet 5 mg PO DAILY #90 tabs 06/25/23 09/23/23 tacrolimus 1 mg capsule, 1 mg PO BID 06/25/23 09/23/23 immediate-release (Prograf) metoprolol succinate 25 mg 75 mg (3 x 25 mg) PO BID 08/26/23 09/23/23 tablet,extended release 24 hr tachycardia #540 tabs empagliflozin 10 mg tablet 10 mg PO DAILY 09/23/23 09/23/23 (Jardiance) Previous Rx's Medication Instructions Recorded blood sugar diagnostic #180 strips 03/04/19 omeprazole 20 mg capsule,delayed 20 mg PO DAILY PRN GERD #90 caps 06/17/19 release hydralazine 100 mg tablet 100 mg PO BID #60 tabs 03/01/21 blood sugar diagnostic #180 ea 09/30/22 blood-glucose meter #1 ea 10/06/22 glipizide 10 mg tablet, extended 10 mg PO BID #180 tabs 12/04/22 release 24 hr nitroglycerin 0.4 mg sublingual 0.4 mg sublingual Q5M PRN chest 12/22/22 tablet pain #30 tabs amlodipine 5 mg tablet 5 mg PO DAILY #90 tabs 04/16/23 levothyroxine 137 mcg tablet 137 mcg PO DAILY #90 tab-caps 05/01/23 atorvastatin 40 mg tablet 40 mg PO QHS #90 tabs 05/26/23 calcitriol 0.25 mcg capsule 0.5 mcg (2 x 0.25 mcg) PO DAILY 05/26/23 #180 caps tamsulosin 0.4 mg capsule 0.4 mg PO DAILY #90 tab-caps 05/26/23 saxagliptin 5 mg tablet 5 mg PO DAILY #90 tabs 06/25/23 metoprolol succinate 25 mg 75 mg (3 x 25 mg) PO BID 08/26/23 tablet,extended release 24 hr tachycardia #540 tabs Allergies Allergy/AdvReac Type Severity Reaction Status Date / Time strawberry Allergy Unknown Other (See Verified 09/23/23 17:56 Comment) General Stated Complaint: Nk/Back Pain ALICIA: 4 Review of Systems Narrative: Per HPI Exam Narrative Exam Narrative: Const: WDWN elderly male in NAD. HEENT: NC/AT. Normal facial exam. Eyes: Normal conjunctiva and sclera. Neck: Supple. Trachea midline. Lungs: Normal respiratory effort. Cor: RRR without murmur/gallop. Good radial pulses. GI: Soft. ND. Mild tenderness in the LLQ over graft kidney. Back: No CVAT. No midline tenderness. Minimal right low lumbar tenderness. Neuro: A+O x 3. Normal speech, mentation, gait. Cranial nerves II - XII grossly intact. No gross motor or sensory deficit. Ext: No C/C/E. Skin: Warm and dry without rash. Course Vital Signs Vital signs: Vital Signs Temperature 97.9 F 09/23/23 14:17 Pulse 86 09/23/23 14:17 Respiratory Rate 18 09/23/23 14:17 Blood Pressure 153/60 H 09/23/23 14:17 Pulse Oximetry 95 09/23/23 14:17 Temperature 97.9 F 09/23/23 14:17 Temperature Source Skin 09/23/23 14:17 Pulse 86 09/23/23 14:17 Respiratory Rate 18 09/23/23 14:17 Respiratory Effort Normal, Non-Labored 09/23/23 14:21 Blood Pressure 153/60 H 09/23/23 14:17 Blood Pressure Position Sitting 09/23/23 14:17 Pulse Oximetry 95 09/23/23 14:17 Oxygen Delivery Method Room Air 09/23/23 14:17 Oxygen Flow Rate 0 09/23/23 14:17 Pain Level 7 09/23/23 14:17 Medical Decision Making Elderly male with immunosuppression due to renal transplant, diabetes, CKD, who presents with low back pain right much worse than left. Has know nephrolithiasis in his platinum kidneys and his team at [facility] as always told him to be careful with back pain. He denies any fever. He denies any hematuria or dysuria. He has had no abdominal pain. He has no neurologic symptoms. Pain is somewhat worse with movement suggesting musculoskeletal. He does not have CVAT. He does appear to be tender over his graft kidney. He looks well and nontoxic. He had a visit in December 2022 with similar presentation. Workup at that time was negative and was treated as musculoskeletal back pain. He is followed by his team at [facility] as well as sees his PCP here about every 3 months. Will obtain urine, labs, CT stone study, given IV acetaminophen for his discomfort. Patient's laboratory studies are reassuring. His white count is normal. His hemoglobin is normal. Kidney function is baseline and stable. Total bilirubin elevated also stable. Liver function otherwise normal. CT scan discussed directly with radiology. Patient is noted to have acute severe diverticulitis involving the sigmoid colon with phlegmonous change but no perforation or abscess. It is adjacent to his graft kidney which likely explains the tende rness. Urine is still pending. Patient is ordered for fluids, ceftriaxone, metronidazole. A call was placed to his transplant surgeon at [facility]. I spoke directly with Dr. Eagle. We discussed the case and findings. Discussed transfer versus admission here. Dr. Eagle feels that patient has been stable from a transplant point of view for some time. He feels that it is fine to keep the patient here for IV antibiotics and if there is any significant change or lack of improvement the hospitalist team may contact him directly. Discussed with hospitalist, Dr. High. Patient to be admitted to hospitalist service for further management. Medical Records Medical records reviewed: Yes I reviewed the patient's medical records. Medical records narrative: see [facility] Lab Data Lab results reviewed: Yes I reviewed the patient's lab results. 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 (Acute) Diverticulitis of intestine with perforation (Acute) Pacemaker (Acute) dual lead [employer] [place] 01/31/2022 RIGHT SIDED Presence of Watchman left atrial appendage closure device (Acute) [facility] [place]/27 Long-term current use of 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 biologic agent (Chronic) Vitamin D deficiency (Acute ~05/2022) Osteoarthritis of left knee (Acute) Parkinsonism (Acute) Tremor (Acute) Acute diverticulitis (Acute) - confirmed by CT , inpt at [facility] Bradycardia (Chronic) Vasogenic edema (Acute) Hypertension (Chronic) Hiccups (Acute) 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, tx at [facility], anticoagulant stopped Altered mental status (Acute) Hypertensive retinopathy (Acute ~09/27/20) [place] 09/27/20- MILD TO MODERATE-KB Spinal stenosis (Acute) L5-S1 Subsequent non-ST elevation (NSTEMI) myocardial infarction within 4 weeks of initial infarction (Acute) stents Status post rotator cuff repair (Acute) Postoperative stiffness of total knee replacement (Chronic) Olecranon bursitis, left elbow (Chronic) Arthritis of left elbow (Acute) Tubular adenoma (Acute 09/12/15) 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 Microscopic hematuria (Acute 05/21/12) neg workup [facility] [place]. 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 Need dialysis or transplant. 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 s/p hernia repair b. s/p knee arthroscopy c. s/p unspecified shoulder surgery d. s/p vasectomy Medical History History of diverticulitis (09/14/22) Fistula Obstructive sleep apnea Myocardial infarction Hepatitis C Treated and cured Chronic kidney disease Hypothyroidism CVA (cerebral vascular accident) CHF (congestive heart failure) Diabetes HTN (hypertension) Hyperlipemia GERD (gastroesophageal reflux disease) BPH (benign prostatic hyperplasia) Atrial fibrillation Surgical History History of arthroscopy of knee History of biopsy H/O bladder repair surgery History of hernia repair H/O vasectomy Rotator Cuff Repair left KIDNEY TRANSPLANT (09/16/15) [facility]09/16/15 Colonoscopy - MAC 2009 BIOPSY, KIDNEY (10/16/14) [facility]-RIGHT Arthroplasty of knee 2006-right Family History Mother Essential hypertension Father Myocardial infarction Stroke Brother Essential hypertension Neoplasm Social History Smoking/Tobacco Use Status: Current-Occasional Tobacco Type: cigars Tobacco: How many years used: 20 Smoking risk assessment performed?: Yes Alcohol Intake: never Drug use: Occasionally Substance use type: marijuana Adopted: No Caregiver/Support person: Yes Foster care: No Household members: spouse Housing: house Number of Children: 2 number of grandchildren: 1 Communication Needs: None Education Level: high school 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 Pets and animals: Yes Pets and animals: dog(s) Sexually active: No Do you think of yourself as: straight/heterosexual Current gender identity: male What is your relationship status?: How often do you talk on the phone with friends or family?: three or more times per week Do you belong to any clubs or organized social groups?: no Panel score (0-1 are the most socially isolated patients): 2 Idalia/Anglican: None Special idalia needs: No Seatbelt use: always Helmet use: Yes Helmet use: always Drive intox or ride w/intox driver recruiter: No Do you feel safe at home: Yes Do you feel safe in your relationship?: Yes
--- NOTE | 2023-09-23 14:30 | DI.CT_ITS ---
Exam(s) CT RENAL COLIC WO EXAM: CT RENAL COLIC WO CLINICAL HISTORY: right back pain; hx of stones. TECHNIQUE: Imaging Protocol: Axial computed tomography images with coronal and sagittal reformatted images were created and reviewed CONTRAST MATERIAL: Intravenous: none Oral: None COMPARISON: CT CT LUMBAR SPINE RECONS from 12/06/[address] ABDOMEN PELVIS WO from 12/06/2022 FINDINGS: VISUALIZED LUNG BASES: Small 5 millimeter pleural base nodular density in the lateral basal segment o f the left lower lobe is unchanged. No pleural effusions.. Cardiac pacemaker wires again noted. ABDOMEN: There is no ascites in the upper abdomen. LIVER: There are no obvious focal hepatic lesions evident of this noninfused study. GALLBLADDER/BILIARY: Cholelithiasis again noted but no evidence of acute cholecystitis. There is no gallbladder wall edema nor pericholecystic fluid. CBD is not dilated. PANCREAS: No evidence of pancreatic mass nor dilatation of the pancreatic duct. SPLEEN: Spleen is not enlarged. No obvious intrasplenic lesions. ADRENALS: There are no significant adrenal masses. KIDNEYS:Again noted is advanced atrophy of the bilateral [place] kidneys and there is again noted surg ical clips or calculi associated with the mid left ureter and hydroureter on the left side above this level is again noted, unchanged. There is no hydronephrosis on the opposite-right side nor dilatati on of the right ureter. Transplant left pelvic kidney is again noted and exhibits normal size with n o masses nor cysts nor hydronephrosis.. ABDOMINAL AORTA: Abdominal aorta is not enlarged. LYMPH NODES: There is no retroperitoneal nor paraaortic adenopathy. ABDOMINAL WALL: Left inguinal canal appears unchanged from previous with hernia but no bowel loops th erein. GI: No evidence of small-bowel obstruction. No evidence of appendicitis. An appendicolith is noted in a normal diameter appendix and no periappendiceal streaking evident. There is diverticulosis of the left side of the colon and sigmoid and there is evidence of acute chol ecystitis which is related to the area of sigmoid with most extensive diverticulosis involvement, thi s in the left side of the pelvis anterior to the transplant kidney. There is significant phlegmonous change and wall thickening but no distinct abscess at this time. PELVIS: LYMPH NODES: There is no intrapelvic nor inguinal adenopathy. GI: No evidence of appendicitis.Sigmoid diverticulitis as described above. URINARY BLADDER: There are tiny calculi on the dependent wall of the urinary bladder. REPRODUCTIVE: Prostate and seminal vesicles unremarkable. OSSEOUS: No significant osseous lesions. Multilevel chronic degenerative disc disease. No fractures. No listhesis. IMPRESSION: 1. The main acute finding here is severe sigmoid diverticulitis superimposed upon extensive diverticu losis of the sigmoid. Significant phlegmonous findings. There is significant risk for developing an abscess. 2. Cholelithiasis again noted. No evidence of acute cholecystitis. No appendicitis. 3. [place] kidneys are again noted be atrophic and with hydronephrosis on the left side and ipsilatera l left hydroureter down to surgical clip level. 4. Transplant left pelvic kidney again noted which exhibits normal size and no acute findings. No c alculi noted within the transplant left kidney nor within its ureter. There are a few tiny calculi n oted in the dependent aspect of the urinary bladder, these measuring less than 2 mm. Other findings as above. Called by myself to ER physician. RADIATION DOSE DELIVERED: Total DLP DATA REPOSITORY: All CT scans at this facility are submitted to the National Radiology Data Registry (NRDR) Dose Index Registry (DIR) with the [employer] (ACR). RADIATION OPTIMIZATION: All CT scans at this facility use at least one of these dose optimization te chniques: automated exposure control; mA and/or kV adjustment per patient size (includes targeted exa ms where dose is matched to clinical indication); or iterative reconstruction.
[2023-09-23] MEDS: ACETAMINOPHEN 1,000 MG/100 ML BTL 400 MG IVPB (15:35)
[2023-09-23 15:37] LABS: Abs Immature Grans 0.03 10^3/uL (0.0-0.06); Absolute Basophil Count 0.05 10^3/uL (0.0-0.2); Absolute Eosinophil Count 0.24 10^3/uL (0.0-0.7); Absolute Lymphocyte Count 1.45 10^3/uL (1.2-3.4); Absolute Monocyte Count 1.04 10^3/uL (0.1-0.8); Absolute Neutrophil Count 7.75 10^3/uL (1.2-6.7); Basophils % 0.5; Eosinophils % 2.3; HCT 41.8 % (40.0-50.0); HGB 14.3 g/dL (13.5-17.5); Immature Grans % 0.3; Lymphocytes % 13.7; MCH 30.9 pg (27.0-33.0); MCHC 34.2 % (32.0-36.0); MCV 90 fL (80-95); MPV 9.4 fL (8.0-11.0); Monocytes % 9.8; Neutrophils % 73.4; Platelet Count 217 10^3/uL (130-400); RBC 4.63 10^6/uL (4.36-5.78); RDW 12.8 % (11.8-14.1); RDW-SD 41.5 fL; WBC 10.56 10^3/uL (4.4-10.8)
[2023-09-23 15:59] LABS: ALT 24 U/L (16-63); AST 16 U/L (15-37); Albumin 3.2 g/dL (3.4-5.0); Alkaline Phosphatase 84 U/L (46-116); Anion Gap 7.9 mmol/L (3-11); BUN 19 mg/dL (7-18); Bilirubin, Total 2.5 mg/dL (0.2-1.0); CO2 32.1 mmol/L (21.0-32.0); CREATININE 1.4 mg/dL (0.70-1.30); Calcium 9.3 mg/dL (8.5-10.1); Chloride 104 mmol/L (98-107); Estimated GFR 52.41 (mL/min/1.73m2); Glucose 117 mg/dL (74-106); Lipase 30 U/L (16-77); Potassium 3.5 mmol/L (3.5-5.1); Sodium 144 mmol/L (136-145); Total Protein 7.3 g/dL (6.4-8.2)
[2023-09-23] MEDS: cefTRIAXone 1 GM/50 ML BAG IVPB (16:50)
[2023-09-23 17:12] VITALS: BP 156/74; PULSE 72; RESP 14; TEMP 36.8; O2SAT 98
[2023-09-23] MEDS: metroNIDAZOLE 500 MG/100 ML BAG 100 MG IVPB ×2 (17:44→23:29)
[2023-09-23] MEDS: Lactated Ringers 1,000 ML 125 ML IV (17:45)
[2023-09-23] MEDS: Magnesium Gluconate 500 MG TAB 1000 MG PO (18:25)
--- NOTE | 2023-09-23 18:50 | HPE_ITS ---
Date of service: 09/23/23 Time of Service: 18:50 Assessment and Plan Assessment and plan (1) Acute diverticulitis: Status: Acute Assessment and plan: Diverticulitis based on gross CT findings and significant abdominal tenderness, though presenting symptoms more suggestive of LS sprain. Also, perhasps the diarrhea is related to the diverticulitis (eg, change in bowels) though patient is quite convinced it is due to the magnesium prep[aration. Possible he may two separate lesions. Regardless of the precise relation of signs and symptoms, will continue primary focus on treating the diverticulitis with dual antibiotics, bowel rest and prn analgesics. Renal transplant: usual meds DM: will hold meds while NPO Reviewed ADs, requests Full Code, but does not want any prolonged resuscitation measures History of Present Illness History of Present Illness Chief Complaint: back pain Narrative: 73 male with h/o kidney transplant, h/o kidney stones, atrophic right kidney and non-functioning left kidney with ureteral clip -- here with three days of morte or less constant lower back pain, right> left, which seems to be worse as he changes position. Denies trauma or inciting event. In ER findings of note for significant LLQ tenderness and CT demonstrates severe sigmoid diverticulitis with phlegmon. No kidney stones, few tiny bladder stones and renal graft appears normal. Case reviewed with transplant team at [facility] who advise admission here would be fine, the graft has been stable. Patient given Rocephin and Flagyl and I was asked to evaluate for admission. Patient denies abdominal pain. Notes diarrhea the past three days but states this is because his usual Mg preparation was changed (previously on Gluconate -- now unavailable -- does not know what it was changed to). No fever. 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 carman current use of 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 drug (Acute) Diverticulitis of intestine with perforation (Acute) Pacemaker (Acute) dual lead Medtronic [place] 01/31/2022 RIGHT SIDED Presence of Watchman left atrial appendage closure device (Acute) [facility] 05/27 Long-term current use of 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 biologic agent (Chronic) Vitamin D deficiency (Acute ~05/2022) Osteoarthritis of left knee (Acute) Parkinsonism (Acute) Tremor (Acute) Acute diverticulitis (Acute) - confirmed by CT , inpt at [facility] Bradycardia (Chronic) Vasogenic edema (Acute) Hypertension (Chronic) Hiccups (Acute) 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, tx at [facility], anticoagulant stopped Altered mental status (Acute) Hypertensive retinopathy (Acute ~09/27/20) [facility] MODERATE-KB Spinal stenosis (Acute) L5-S1 Subsequent non-ST elevation (NSTEMI) myocardial infarction within 4 weeks of initial infarction (Acute) stents Status post rotator cuff repair (Acute) Postoperative stiffness of total knee replacement (Chronic) Olecranon bursitis, left elbow (Chronic) Arthritis of left elbow (Acute) Tubular adenoma (Acute 09/12/15) 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 Microscopic hematuria (Acute 05/21/12) [place] [facility] 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 Need dialysis or transplant. 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 s/p hernia repair b. s/p knee arthroscopy c. s/p unspecified shoulder surgery d. s/p vasectomy Medical History History of diverticulitis (09/14/22) Fistula Obstructive sleep apnea Myocardial infarction Hepatitis C Treated and cured Chronic kidney disease Hypothyroidism CVA (cerebral vascular accident) CHF (congestive heart failure) Diabetes HTN (hypertension) Hyperlipemia GERD (gastroesophageal reflux disease) BPH (benign prostatic hyperplasia) Atrial fibrillation Surgical History History of arthroscopy of knee History of biopsy H/O bladder repair surgery History of hernia repair H/O vasectomy Rotator Cuff Repair left KIDNEY TRANSPLANT (09/16/15) [facility]-09/16/15 Colonoscopy - MAC 2009 BIOPSY, KIDNEY (10/16/14) [facility]-RIGHT Arthroplasty of knee 2006-right Family History Mother Essential hypertension Father Myocardial infarction Stroke Brother Essential hypertension Neoplasm Social History Smoking/Tobacco Use Status: Current-Occasional Tobacco Type: cigars Tobacco: How many years used: 20 Smoking risk assessment performed?: Yes Alcohol Intake: never Drug use: Occasionally Substance use type: marijuana Adopted: No Caregiver/Support person: Yes Foster care: No Household members: spouse Housing: house Number of Children: 2 number of grandchildren: 1 Communication Needs: None Education Level: high school 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 Pets and animals: Yes Pets and animals: dog(s) Sexually active: No Do you think of yourself as: straight/heterosexual Current gender identity: male What is your relationship status?: How often do you talk on the phone with friends or family?: three or more times per week Do you belong to any clubs or organized social groups?: no Panel score (0-1 are the most socially isolated patients): 2 Idalia/Rastafari: None Special idalia needs: No Seatbelt use: always Helmet use: Yes Helmet use: always Drive intox or ride w/intox driver service technician: No Do you feel safe at home: Yes Do you feel safe in your relationship?: Yes Meds Allergies and Home Medications Allergies Allergy/AdvReac Type Severity Reaction Status Date / Time strawberry Allergy Unknown Other (See Verified 09/23/23 17:56 Comment) Home Medications Medication Instructions Recorded Confirmed Type lancets 28 gauge #100 ea 09/27/14 09/23/23 History mycophenolate mofetil 250 mg 250 mg PO BID 04/15/16 09/23/23 History capsule (CellCept) ascorbic acid (vitamin C) 500 mg 500 mg PO TID 09/05/16 09/23/23 History capsule,extended release (Vitamin C) blood sugar diagnostic #180 strips 03/04/19 09/23/23 Rx omeprazole 20 mg capsule,delayed 20 mg PO DAILY PRN GERD #90 caps 06/17/19 09/23/23 Rx release pfkmtrhn-cbf-luksw acid 0.4 2 tab PO DAILY 01/16/21 09/23/23 History mg-lycopene 300 mcg-lutein 250 mcg tablet (Centrum Silver) hydralazine 100 mg tablet 100 mg PO BID #60 tabs 03/01/21 09/23/23 Rx magnesium gluconate 500 mg tablet 1,000 mg PO TID 04/23/21 09/23/23 History acetaminophen 500 mg capsule 500 mg PO Q8H PRN PRN pain 07/17/22 09/23/23 History aspirin 81 mg tablet,delayed 81 mg PO DAILY 07/17/22 09/23/23 History release (Adult Low Dose Aspirin) blood sugar diagnostic #180 ea 09/30/22 09/23/23 Rx blood-glucose meter #1 ea 10/06/22 09/23/23 Rx glipizide 10 mg tablet, extended 10 mg PO BID #180 tabs 12/04/22 09/23/23 Rx release 24 hr nitroglycerin 0.4 mg sublingual 0.4 mg sublingual Q5M PRN chest 06/19/23 03/20/24 Rx tablet pain #30 tabs docusate sodium 50 mg capsule 50 mg PO DAILY 03/26/23 09/23/23 History (Stool Softener) amlodipine 5 mg tablet 5 mg PO DAILY #90 tabs 04/16/23 09/23/23 Rx levothyroxine 137 mcg tablet 137 mcg PO DAILY #90 tab-caps 05/01/23 09/23/23 Rx atorvastatin 40 mg tablet 40 mg PO QHS #90 tabs 05/26/23 09/23/23 Rx calcitriol 0.25 mcg capsule 0.5 mcg (2 x 0.25 mcg) PO DAILY 05/26/23 09/23/23 Rx #180 caps tamsulosin 0.4 mg capsule 0.4 mg PO DAILY #90 tab-caps 05/26/23 09/23/23 Rx saxagliptin 5 mg tablet 5 mg PO DAILY #90 tabs 06/25/23 09/23/23 Rx tacrolimus 1 mg capsule, 1 mg PO BID 06/25/23 09/23/23 History immediate-release (Prograf) metoprolol succinate 25 mg 75 mg (3 x 25 mg) PO BID 08/26/23 09/23/23 Rx tablet,extended release 24 hr tachycardia #540 tabs empagliflozin 10 mg tablet 10 mg PO DAILY 09/23/23 09/23/23 History (Jardiance) Exam Narrative Exam Narrative: 156/74, 36.8, 72, 14, 98% RA. HEENT atraumatic; neck suple; lungs clear; heart RRR; back negative CVAT, mild left paralumbar tenderness w/o spasm, some pain with going from supine to sitting reproduces his back pain abdomen +BS, soft, moderate tenderness LLQ w/o rebound; extremities w/o edema; neuro Ox3, lucid, moves all 4s Results Labs 09/23/23 15:31 09/23/23 15:31 Labs: Laboratory Results - last 24 hr 09/23/23 15:31 WBC 10.56 RBC 4.63 Hgb 14.3 Hct 41.8 MCV 90 MCH 30.9 MCHC 34.2 RDW 12.8 Plt Count 217 MPV 9.4 Immature Gran % 0.3 Neutrophils % 73.4 Lymphocytes % 13.7 Monocytes % 9.8 Eosinophils % 2.3 Basophils % 0.5 Nucleated RBC % 0.0 Absolute Neutrophils 7.75 H Absolute Lymphocytes 1.45 Absolute Monocytes 1.04 H Absolute Eosinophils 0.24 Absolute Basophils 0.05 Sodium 144 Potassium 3.5 Chloride 104 Carbon Dioxide 32.1 H Anion Gap 7.9 BUN 19 H Creatinine 1.4 H Est GFR (CKD-EPI 2020) 52.41 Glucose 117 H Calcium 9.3 Total Bilirubin 2.5 H AST 16 ALT 24 Alkaline Phosphatase 84 Total Protein 7.3 Albumin 3.2 L Lipase 30 Last Vital Signs Temp 36.8 C 09/23/23 17:12 Pulse 72 09/23/23 17:12 Resp 14 09/23/23 17:12 BP 156/74 H 09/23/23 17:12 Pulse Ox 98 09/23/23 17:12 Time Spent Time spent with Patient: 55-74 minutes Time was spent: preparing to see the patient(eg.review tests), obtaining and/or reviewing separately otained hiistory, ordering medications,tests, procedures, referring, communicating with other health childcare director and indepentently interpreting results
[2023-09-23 19:18] LABS: Bilirubin Negative (Negative); Blood Negative (Negative); Clarity Clear (Clear); Glucose Negative (Negative); Ketones Negative (Negative); Leukocyte Esterase Negative (Negative); Nitrite Negative (Negative); Specific Gravity 1.015 (1.005-1.025); Urobilinogen 0.2 mg/dL (Up to 0.2)
[2023-09-23 19:48] VITALS: BP 149/79; PULSE 79; RESP 15; TEMP 36.2; O2SAT 98
[2023-09-23] MEDS: Lactated Ringers 1,000 ML 100 ML IV (20:33)
--- NOTE | 2023-09-23 20:39 | RESPIRATORY ---
RT seen pt. for ARIELLA and CSA diagnosis. Pt. states uses home CPAP but did not bring it here. Pt. has accepted to use the hospita's CPAP machine tonight. Pt. advises his will bring his HU if he is going to stay more night in hospital.
[2023-09-23 20:59] VITALS: PULSE 60; RESP 21; O2SAT 94
[2023-09-23] MEDS: Atorvastatin 40 MG TAB PO (21:13)
[2023-09-23] MEDS: Metoprolol CR 25 MG TABCR 75 MG PO (21:13)
[2023-09-23] MEDS: Tacrolimus 0.5 MG CAP 1 MG PO (21:13)
[2023-09-23] MEDS: hydrALAZINE 25 MG TAB 100 MG PO (21:13)
[2023-09-23] MEDS: Normal Saline Flush 10 ML SYR IVP (21:14)
[2023-09-23 23:32] VITALS: BP 133/60; PULSE 63; RESP 17; TEMP 36.5; O2SAT 94
[2023-09-24] MEDS: Lactated Ringers 1,000 ML 100 ML IV (05:07)
[2023-09-24] MEDS: metroNIDAZOLE 500 MG/100 ML BAG 100 MG IVPB ×3 (05:08→18:17)
[2023-09-24 07:53] VITALS: BP 146/72; PULSE 61; RESP 16; TEMP 36.8; O2SAT 93
--- NOTE | 2023-09-24 08:33 | PDOC.CMIN ---
Date of service: 09/24/23 Time of Service: 08:33 Care Management Initial Assmt Initial Assessment REASON FOR HOSPITALIZATION:: acute diverticulitis PREVIOUS FUNCTIONAL STATUS/SOCIAL/FAMILY SUPPORTS:: Yash lives in [place], [place] with his Mara. They have 2 sons; one son lives in [place] and the other is about 3 miles away. 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 He is independent at baseline, drives and does not receive any community based services. CURRENT FUNCTIONAL STATUS:: Yash was lying in bed when CM met with him. He came to the ED yesterday with back and lower abdominal pain and was found to have diverticulitis. He stated that this is the second time he has had diverticulitis. Today Yash is afebrile, his WBC is normal and his pain is well controlled with IV Tylenol. He ate 100% of his clear liquid lunch and tolerated it well. ADVANCE DIRECTIVES:: none Has patient been provided with info about the portal/API?: Yes Did the patient sign up for the portal?: Yes CODE STATUS:: Full Code INSURANCE COVERAGE / FINANCIAL ISSUES:: Medicare Advantage CURRENT HOME/COMMUNITY SERVICES/EQUIPMENT:: none PRIMARY CARE PHYSICIAN:: Urbano Jimenez PATIENT/FAMILY EDUCATION NEEDS:: review of discharge instructions, activity, limitations, follow up plan, discuss Ask Me Three TRANSPORTATION:: via private vehicle with family PLAN:: Anticipate Yahs will be discharged home with no new services when medically cleared. He will follow up with his community providers and plan of care and transport with family. CM will follow and continue to assess for discharge needs. [facility] All Active Problems (Updated 09/24/23 @ 11:54 by Olga Jones NP) KIDNEY TRANSPLANT (Acute 09/16/15) [facility] Acute diverticulitis (Acute) Physical deconditioning (Acute) Gait difficulty (Acute) Meibomian gland dysfunction (MGD) of upper and lower eyelid of left eye (Acute ~08/2022) Meibomian gland dysfunction (MGD) of upper and lower eyelid of right eye (Acute ~08/2022) Drusen (degenerative) of macula, bilateral (Acute) [place] note 08/15/22 Age-related nuclear cataract, bilateral (Acute) [place] note 08/15/22 Dry mouth (Acute) Periodic limb movement disorder (Acute) Central sleep apnea (Acute) 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 (Acute) Diverticulitis of intestine with perforation (Acute) Pacemaker (Acute) dual lead Medtronic [place] 01/31/2022 RIGHT SIDED Presence of Watchman left atrial appendage closure device (Acute) [facility] [place] Long-term current use of 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 biologic agent (Chronic) Vitamin D deficiency (Acute ~05/2022) Osteoarthritis of left knee (Acute) Parkinsonism (Acute) Tremor (Acute) Acute diverticulitis (Acute) - confirmed by CT , inpt at [facility] Bradycardia (Chronic) Vasogenic edema (Acute) Hypertension (Chronic) Hiccups (Acute) 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, tx at [facility], anticoagulant stopped Altered mental status (Acute) Hypertensive retinopathy (Acute ~09/27/20) [facility] 09/27/20- MILD TO MODERATE-KB Spinal stenosis (Acute) L5-S1 Subsequent non-ST elevation (NSTEMI) myocardial infarction within 4 weeks of initial infarction (Acute) stents Status post rotator cuff repair (Acute) Postoperative stiffness of total knee replacement (Chronic) Olecranon bursitis, left elbow (Chronic) Arthritis of left elbow (Acute) Tubular adenoma (Acute 09/12/15) 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 Microscopic hematuria (Acute 05/21/12) neg work[place] [facility] [place] 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 Need dialysis or transplant. 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 s/p hernia repair b. s/p knee arthroscopy c. s/p unspecified shoulder surgery d. s/p vasectomy Medical History History of diverticulitis (09/14/22) Fistula Obstructive sleep apnea Myocardial infarction Hepatitis C Treated and cured Chronic kidney disease Hypothyroidism CVA (cerebral vascular accident) CHF (congestive heart failure) Diabetes HTN (hypertension) Hyperlipemia GERD (gastroesophageal reflux disease) BPH (benign prostatic hyperplasia) Atrial fibrillation Surgical History History of arthroscopy of knee History of biopsy H/O bladder repair surgery History of hernia repair H/O vasectomy Rotator Cuff Repair left KIDNEY TRANSPLANT (09/16/15) [facility] [place] Colonoscopy - MAC 2009 BIOPSY, KIDNEY (10/16/14) [facility] [place] Arthroplasty of knee 2006-right Family History Mother Essential hypertension Father Myocardial infarction Stroke Brother Essential hypertension Neoplasm Social History Smoking/Tobacco Use Status: Current-Occasional Tobacco Type: cigars Tobacco: How many years used: 20 Smoking risk assessment performed?: Yes Alcohol Intake: never Drug use: Occasionally Substance use type: marijuana Adopted: No Caregiver/Support person: Yes Foster care: No Household members: spouse Housing: house Number of Children: 2 number of grandchildren: 1 Communication Needs: None Education Level: high school 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 Pets and animals: Yes Pets and animals: dog(s) Sexually active: No Do you think of yourself as: straight/heterosexual Current gender identity: male What is your relationship status?: How often do you talk on the phone with friends or family?: three or more times per week Do you belong to any clubs or organized social groups?: no Panel score (0-1 are the most socially isolated patients): 2 Idalia/Protestant: None Special idalia needs: No Seatbelt use: always Helmet use: Yes Helmet use: always Drive intox or ride w/intox sales route driver: No Do you feel safe at home: Yes Do you feel safe in your relationship?: Yes SDOH(Care Management) Screening Will the Patient Participate in the Screening?: Yes Do you worry about having a steady place to live?: no Problems where you live: no known problems In the past 12 months, have you had to go without electric, gas, oil or water in your home?: no Have you or anyone in your house had to go without enough food to eat?: no Has lack of transportation kept you from medical appointments or from doing things needed for daily living?: no Has anyone in your support network made you feel unsafe for any reason?: no
[2023-09-24] MEDS: ACETAMINOPHEN 1,000 MG/100 ML BTL 400 MG IVPB ×2 (08:51→17:41)
[2023-09-24] MEDS: Tamsulosin 0.4 MG CAPCR PO (08:57)
[2023-09-24] MEDS: Metoprolol CR 25 MG TABCR 75 MG PO ×2 (08:57→20:31)
[2023-09-24] MEDS: Tacrolimus 0.5 MG CAP 1 MG PO ×2 (08:58→20:31)
[2023-09-24] MEDS: hydrALAZINE 25 MG TAB 100 MG PO ×2 (08:58→20:29)
[2023-09-24] MEDS: Aspirin E.C. 81 MG TABEC PO (08:59)
[2023-09-24] MEDS: Calcitriol 0.25 MCG CAP 0.5 MCG PO (08:59)
[2023-09-24] MEDS: amLODIPine 5 MG TAB PO (08:59)
[2023-09-24] MEDS: Normal Saline Flush 10 ML SYR IVP ×2 (09:00→20:31)
--- NOTE | 2023-09-24 11:42 | RESPIRATORY ---
Patient spoke with his this morning and she will bring in his home CPAP unit later today.
[2023-09-24 11:45] LABS: Abs Immature Grans 0.02 10^3/uL (0.0-0.06); Absolute Basophil Count 0.04 10^3/uL (0.0-0.2); Absolute Eosinophil Count 0.15 10^3/uL (0.0-0.7); Absolute Lymphocyte Count 1.32 10^3/uL (1.2-3.4); Absolute Monocyte Count 0.94 10^3/uL (0.1-0.8); Absolute Neutrophil Count 7.24 10^3/uL (1.2-6.7); Basophils % 0.4; Eosinophils % 1.5; HCT 39.5 % (40.0-50.0); HGB 13.7 g/dL (13.5-17.5); Immature Grans % 0.2; Lymphocytes % 13.6; MCH 30.7 pg (27.0-33.0); MCHC 34.7 % (32.0-36.0); MCV 89 fL (80-95); MPV 9.4 fL (8.0-11.0); Monocytes % 9.7; Neutrophils % 74.6; Platelet Count 197 10^3/uL (130-400); RBC 4.46 10^6/uL (4.36-5.78); RDW 12.6 % (11.8-14.1); RDW-SD 41.1 fL; WBC 9.71 10^3/uL (4.4-10.8)
--- NOTE | 2023-09-24 11:51 | W.PM.PROGNOT ---
Date of Service Date of service: 09/24/23 Time of Service: 11:51 Assessment and Plan Assessment and plan (1) Acute diverticulitis: Status: Acute (2) CKD (chronic kidney disease) stage 3, GFR 30-59 ml/min: Status: Acute (3) Diabetes mellitus, type II: Status: Chronic Qualifiers: Diabetes mellitus complication detail: with diabetic retinopathy Diabetes mellitus complication status: with ophthalmic complications Diabetes mellitus long term care phlebotomist insulin use: unspecified long term care phlebotomist insulin use status Diabetes mellitus macular edema: macular edema presence unspecified Diabetic retinopathy severity: with unspecified retinopathy severity Laterality: unspecified laterality Qualified Code(s): E11.319 - Type 2 diabetes mellitus with unspecified diabetic retinopathy without macular edema (4) Hypertension: Status: Acute (5) KIDNEY TRANSPLANT: Status: Acute (6) BPH without urinary obstruction: Status: Acute (7) Hypothyroidism: Status: Acute Subjective Subjective Patient reports: no new complaints, feels better, pain is less, tolerating liquids well, voiding w/o difficulty, no bowel movement and afebrile; denies shortness of breath Objective Last Vital Signs Temp 36.8 C 09/24/23 07:53 Pulse 61 09/24/23 07:53 Resp 16 09/24/23 07:53 BP 146/72 H 09/24/23 07:53 Pulse Ox 93 09/24/23 07:53 Laboratory Results - last 24 hr 09/23/23 09/23/23 09/24/23 15:31 19:06 11:30 WBC 10.56 9.71 RBC 4.63 4.46 Hgb 14.3 13.7 Hct 41.8 39.5 L MCV 90 89 MCH 30.9 30.7 MCHC 34.2 34.7 RDW 12.8 12.6 Plt Count 217 197 MPV 9.4 9.4 Immature Gran % 0.3 0.2 Neutrophils % 73.4 74.6 Lymphocytes % 13.7 13.6 Monocytes % 9.8 9.7 Eosinophils % 2.3 1.5 Basophils % 0.5 0.4 Nucleated RBC % 0.0 0.0 Absolute Neutrophils 7.75 H 7.24 H Absolute Lymphocytes 1.45 1.32 Absolute Monocytes 1.04 H 0.94 H Absolute Eosinophils 0.24 0.15 Absolute Basophils 0.05 0.04 Sodium 144 Potassium 3.5 Chloride 104 Carbon Dioxide 32.1 H Anion Gap 7.9 BUN 19 H Creatinine 1.4 H Est GFR (CKD-EPI 2020) 52.41 Glucose 117 H Calcium 9.3 Total Bilirubin 2.5 H AST 16 ALT 24 Alkaline Phosphatase 84 Total Protein 7.3 Albumin 3.2 L Lipase 30 Urine Color Yellow Urine Clarity Clear Urine pH 7.0 Ur Specific [place] 1.015 Urine Protein Negative Urine Ketones Negative Urine Blood Negative Urine Nitrite Negative Urine Bilirubin Negative Urine Urobilinogen 0.2 Ur Leukocyte Esterase Negative Urine Glucose Negative Time Spent with Patient Time Spent with Patient: 25-34 minutes Time was spent: preparing to see the patient(eg.review tests), obtaining and/or reviewing separately otained hiistory, ordering medications,tests, procedures, indepentently interpreting results and counseling the patient
[2023-09-24 11:59] LABS: Anion Gap 7.7 mmol/L (3-11); BUN 15 mg/dL (7-18); CO2 28.3 mmol/L (21.0-32.0); CREATININE 1.4 mg/dL (0.70-1.30); Calcium 8.6 mg/dL (8.5-10.1); Chloride 106 mmol/L (98-107); Estimated GFR 52.41 (mL/min/1.73m2); Glucose 112 mg/dL (74-106); Potassium 3.2 mmol/L (3.5-5.1); Sodium 142 mmol/L (136-145)
--- NOTE | 2023-09-24 13:13 | PHA.REVIEW2 ---
Pharmacy Admission Review Admission Clinical Review Admission Pharmacy Review: KIDNEY TRANSPLANT (Acute 09/16/15) Acute diverticulitis (Acute) Hypothyroidism (Acute 04/06/15) Hypertension (Acute) CKD (chronic kidney disease) stage 3, GFR 30-59 ml/min (Acute 04/25/14) BPH without urinary obstruction (Acute) strawberry Allergy (Unknown, Verified 09/23/23 17:56) Other (See Comment) Resuscitation Status Full Code Height 5 ft 11 in Weight 102.6 kg Pharmacy Admission Review Renal Dosing Renal Dosing: BUN 15 mg/dL (7-18) 09/24/23 11:30 Creatinine 1.4 mg/dL (0.70-1.30) H 09/24/23 11:30 Medications needing adjustments: Reviewed (CrCl 55.5 mL/min) List of meds needing interventions: Current medications okay Anticoagulation Anticoagulation: Hgb 13.7 g/dL (13.5-17.5) 09/24/23 11:30 Hct 39.5 % (40.0-50.0) L 09/24/23 11:30 Plt Count 197 10^3/uL (130-400) 09/24/23 11:30 Creatinine 1.4 mg/dL (0.70-1.30) H 09/24/23 11:30 DVT Prophylaxis: Intervened (Reached out to provider about DVT prophylaxis as no order had been put in. Provider then put in order) Medications: Heparin (BID) Relevant Labs Relevant Labs: Sodium 142 mmol/L (136-145) 09/24/23 11:30 Potassium 3.2 mmol/L (3.5-5.1) L 09/24/23 11:30 Chloride 106 mmol/L (98-107) 09/24/23 11:30 Electrolytes, C-Reactive P, ESR: Reviewed (K 3.2, SCr 1.4, ) DM Control DM Control: Glucose 112 mg/dL (74-106) H 09/24/23 11:30 Finger Stick Blood Glucose 113 0718 Finger Stick Blood Glucose 113 0718 DM Control: Reviewed Insulin Dosing, Diabetic Medication: No orders for SS insulin, home diabetes meds are on hold (Jardiance, glipizide and saxagliptin) Cardiac Review BP, HR, EF%: Reviewed (HR WNL, BP 146/72) QTc Review QTc: Reviewed (472 from 08/20/23 (most recent EKG)) IV to PO Switch IV Medications: Reviewed (IV PRN acetaminophen, ceftriaxone and metronidazole) Home Meds Home Med List reviewed: Reviewed Relevent Home Meds Not ordered & why?: Vitamin C, Jardiance (on hold per H+P), glipizide (on hold per H+P), magnesium (on hold per H+P) and saxagliptin (on hold per H+P) Current Meds Current Medication Order Review: Reviewed Pharmacy Antibiotic Review Pharmacy Antibiotic Activity: Reviewed, no change Comments: Patient is on ceftriaxone and metronidazole, day 2 for diverticulitis
[2023-09-24] MEDS: Potassium Chloride Liquid 20 MEQ PKT 40 MEQ PO (15:02)
[2023-09-24 15:14] VITALS: BP 122/63; PULSE 82; RESP 16; TEMP 36.8; O2SAT 90
[2023-09-24 16:00] LABS: Lab Add On Test DONE
[2023-09-24 16:09] LABS: Magnesium 1.8 mg/dL (1.8-2.4)
[2023-09-24] MEDS: Magnesium Gluconate 500 MG TAB 1000 MG PO ×2 (16:10→20:30)
[2023-09-24] MEDS: cefTRIAXone 1 GM/50 ML BAG IVPB (16:11)
[2023-09-24] MEDS: Lactated Ringers 1,000 ML 150 ML IV (18:16)
[2023-09-24] MEDS: Heparin 5,000 UNITS/ML VIAL 5000 UNITS SC (20:28)
[2023-09-24] MEDS: Atorvastatin 40 MG TAB PO (21:25)
[2023-09-25] MEDS: metroNIDAZOLE 500 MG/100 ML BAG 100 MG IVPB ×3 (00:01→10:29)
[2023-09-25 00:06] VITALS: PULSE 67; RESP 18; O2SAT 97
[2023-09-25 00:10] VITALS: BP 156/83; PULSE 67; RESP 15; TEMP 36.6; O2SAT 97
[2023-09-25] MEDS: Lactated Ringers 1,000 ML 150 ML IV (04:17)
[2023-09-25] MEDS: ACETAMINOPHEN 1,000 MG/100 ML BTL 400 MG IVPB (05:27)
[2023-09-25 06:37] LABS: Abs Immature Grans 0.01 10^3/uL (0.0-0.06); Absolute Basophil Count 0.05 10^3/uL (0.0-0.2); Absolute Eosinophil Count 0.29 10^3/uL (0.0-0.7); Absolute Lymphocyte Count 1.32 10^3/uL (1.2-3.4); Absolute Monocyte Count 0.71 10^3/uL (0.1-0.8); Absolute Neutrophil Count 5.53 10^3/uL (1.2-6.7); Basophils % 0.6; Eosinophils % 3.7; HCT 37.5 % (40.0-50.0); Immature Grans % 0.1; Lymphocytes % 16.7; MCH 30.4 pg (27.0-33.0); MCHC 34.7 % (32.0-36.0); MCV 88 fL (80-95); MPV 10.3 fL (8.0-11.0); Neutrophils % 69.9; Platelet Count 206 10^3/uL (130-400); RBC 4.27 10^6/uL (4.36-5.78); RDW 12.7 % (11.8-14.1); RDW-SD 40.9 fL; WBC 7.91 10^3/uL (4.4-10.8)
[2023-09-25 06:49] LABS: Anion Gap 6.9 mmol/L (3-11); BUN 10 mg/dL (7-18); CO2 28.1 mmol/L (21.0-32.0); CREATININE 1.3 mg/dL (0.70-1.30); Calcium 8.6 mg/dL (8.5-10.1); Chloride 109 mmol/L (98-107); Estimated GFR 57.29 (mL/min/1.73m2); Glucose 110 mg/dL (74-106); Potassium 3.3 mmol/L (3.5-5.1); Sodium 144 mmol/L (136-145)
[2023-09-25 07:28] VITALS: BP 158/94; PULSE 75; RESP 16; TEMP 36.9; O2SAT 93
--- NOTE | 2023-09-25 08:46 | PDOC.CMPRO ---
Date of service: 09/25/23 Time of Service: 08:46 Care Management Progress Note Progress Note Text Progress Note Text: S/O: A: Yash is a 73 year old man admitted on 09/23/23 withdiverticulitis P:Anticipate Yash will be discharged home with no new services when medically cleared. He will follow up with his community providers and plan of care and transport with family. CM will follow and continue to assess for discharge needs. SDOH(Care Management) Screening Will the Patient Participate in the Screening?: Yes Do you worry about having a steady place to live?: no Problems where you live: no known problems In the past 12 months, have you had to go without electric, gas, oil or water in your home?: no Have you or anyone in your house had to go without enough food to eat?: no Has lack of transportation kept you from medical appointments or from doing things needed for daily living?: no Has anyone in your support network made you feel unsafe for any reason?: no
[2023-09-25] MEDS: Tamsulosin 0.4 MG CAPCR PO (09:03)
[2023-09-25] MEDS: Aspirin E.C. 81 MG TABEC PO (09:03)
[2023-09-25] MEDS: Magnesium Gluconate 500 MG TAB 1000 MG PO (09:03)
[2023-09-25] MEDS: Metoprolol CR 25 MG TABCR 75 MG PO (09:03)
[2023-09-25] MEDS: Tacrolimus 0.5 MG CAP 1 MG PO (09:04)
[2023-09-25] MEDS: hydrALAZINE 25 MG TAB 100 MG PO (09:04)
[2023-09-25] MEDS: amLODIPine 5 MG TAB PO (09:05)
[2023-09-25] MEDS: Calcitriol 0.25 MCG CAP 0.5 MCG PO (09:05)
[2023-09-25] MEDS: Heparin 5,000 UNITS/ML VIAL 5000 UNITS SC (09:07)
[2023-09-25] MEDS: Normal Saline Flush 10 ML SYR IVP (09:08)
--- NOTE | 2023-09-25 10:11 | NUR.NOTE ---
Nursing Note: Patient has stated several times he wishes to go home today. Patient did note some improvement in pain from 6/10 yesterday to 5/10 today, and localized to LLQ. Patient has been tolerating clear liquids and reported no relationship of intake to discomfort, which appears to be stable and improving. Distension of LLQ appears to be improved but tenderness persists. Patient reported he had a loose BM early this morning. Discussed with ИРИНА Jones.
--- NOTE | 2023-09-25 10:28 | DSE_ITS ---
Date of service: 09/25/23 Time of Service: 10:36 DS: Diagnosis Discharge Diagnosis (1) Acute diverticulitis: Status: Acute (2) CKD (chronic kidney disease) stage 3, GFR 30-59 ml/min: Status: Acute (3) Diabetes mellitus, type II: Status: Chronic (4) Hypertension: Status: Acute (5) KIDNEY TRANSPLANT: Status: Acute (6) BPH without urinary obstruction: Status: Acute (7) Hypothyroidism: Status: Acute Discharge Plan Disposition Patient Disposition: Home Condition: Stable Discharge Details Reason For Visit: diverticulitis Admit Date/Time: 09/23/23 18:09 Admit Provider: Franko High Attending Provider: Franko High Primary Care Provider: Urbano Jimenez [facility] Hospital Course: This is a 73-year-old male patient with past medical history significant for kidney transplant followed by [facility] Dr. Eagle who presented to the emergency department with abdominal pain workup significant for diverticulitis. He was admitted to the medical surgical unit for IV antibiotics, hydration and bowel rest. His kidney function was closely monitored and did remain at baseline. He was voiding without difficulty. Pain began slowly improving so diet was advanced he was tolerating clear liquids well. He remained afebrile and hemodynamically stable he did continue to have pain but stated it was improving and was requesting discharge to home as he was tolerating fluids well. White count remained normal. He did have 2 small bowel movements this morning and denied any blood. He will discharge home on Augmentin and tramadol if needed for pain not relieved by acetaminophen, he was advised to return immediately to the emergency department for new or worsening symptoms. Concerns about premature discharge were voiced by his but patient was insistent on discharge. I did review the patient's hospitalization and discharge plan with Dr. Eagle at his 's request. There were no additional recommendations provided. He is being discharged to home with no new services. discussed with DR Morales Home Meds and New Rx's Prescriptions: New amoxicillin-pot clavulanate 875-125 mg tablet 1 tab PO BID Qty: 14 0RF tramadol 50 mg tablet 50 mg PO Q8H PRNQty: 20 0RF Continued (DME) blood sugar diagnostic Strip 1 ea Miscellaneous BID Qty: 180 3RF Rx Instructions: test twice daily omeprazole 20 mg capsule,delayed release(DR/EC) 20 mg PO DAILY PRN (Reason: GERD) Qty: 90 3RF magnesium gluconate 500 mg tablet 1,000 mg PO TID Rx Instructions: Takes 1000 mg AM and PM, takes 500 mg Lunchtime. -hb (DME) blood sugar diagnostic Strip See Rx Instructions .ROUTE .MEDSUPPLY Qty: 180 4RF Rx Instructions: test BID saxagliptin 5 mg tablet 5 mg PO DAILY Qty: 90 3RF Stool Softener 50 mg capsule 50 mg PO DAILY nitroglycerin 0.4 mg tablet, sublingual 0.4 mg SL Q5M PRN (Reason: chest pain) Qty: 30 0RF (DME) lancets 1 EACH misc 1 ea Miscellaneous DAILY Qty: 100 Rx Instructions: FOR ONE TOUCH ULTRA MINI METER. NO INSULIN. DIAGNOSIS CODE 250.00 mycophenolate mofetil [CellCept] 250 MG capsule 250 mg PO BID ascorbic acid (vitamin C) [Vitamin C] 500 MG capsule, extended release 500 mg PO TID Centrum Silver 0.4-300-250 mg-mcg-mcg tablet 2 tab PO DAILY aspirin [Adult Low Dose Aspirin] 81 mg tablet,delayed release (DR/EC) 81 mg PO DAILY acetaminophen 500 mg capsule 500 mg PO Q8H PRN PRN (Reason: pain) (DME) blood-glucose meter Misc 1 ea Miscellaneous DAILY Qty: 1 0RF Rx Instructions: FOR ONE TOUCH ULTRA MINI; Dx E11.9, to keep HbA1c less than 6.5% glipizide 10 mg tablet extended release 24hr 10 mg PO BID Qty: 180 3RF amlodipine 5 mg tablet 5 mg PO DAILY Qty: 90 3RF levothyroxine 137 mcg tablet 137 mcg PO DAILY Qty: 90 3RF calcitriol 0.25 mcg capsule 0.5 mcg PO DAILY Qty: 180 3RF atorvastatin 40 mg tablet 40 mg PO QHS Qty: 90 3RF tamsulosin 0.4 mg capsule 0.4 mg PO DAILY Qty: 90 3RF tacrolimus [Prograf] 1 mg capsule 1 mg PO BID Jardiance 10 mg tablet 10 mg PO DAILY metoprolol succinate 50 mg tablet extended release 24 hr 75 mg PO BID Patient Comments: TAKE 1&1/2 TABLETS BY MOUTH TWO TIMES A DAY hydralazine 100 mg tablet 100 mg PO BID Qty: 60 0RF Discharge Instructions Instructions: Diverticulitis (DC) Stand Alone Forms: Nursing Discharge Form Referrals: Urbano Jimenez DO [Primary Care Provider] - 10/12/23 8:00 am Activity:: Activity as Tolerated Equipment/Supplies:: No Equipment Needed Diet:: low fiber Discharge Orders Discharge Orders: Discharge Order (Routine); Ordered 09/25/23 Ordered By: Olga Jones Discharge Data Discharge Date/Time-TO BE ENTERED AT DEPARTURE: 09/25/23 14:16 DS: Summary Time Spent with Patient providing and/or coordinating discharge services: Greater than 30 minutes Status at Discharge Functional status at discharge: independent ambulation Overall status at discharge: patient is progressing back to baseline Mental Status: mental status grossly normal Speech and Movement: speech and movement normal Mood: congruent mood Affect: normal affect Quality:SDOH Health Related Social Needs: No Data to Display Exam Narrative Exam Narrative: Elderly male of stated age in no acute distress head is atraumatic eyes normal appearance noninjected nonicteric EOMs intact neck supple with no JVD his respirations are even and unlabored fine Rales in the bases bilaterally cardiovascular regular rate and rhythm abdomen is soft but distended reports tenderness on the left there is no guarding no rebound he does have positive bowel sounds. Moves all extremities Psych Mental Status: mental status grossly normal Speech and Movement: speech and movement normal Mood: congruent mood Affect: normal affect DS: Data Vitals/I&O Vitals and I&O: Vital Signs Temperature 36.9 C 09/25/23 07:28 Temperature Source Tympanic 09/25/23 07:28 Pulse 75 09/25/23 07:28 Pulse Rhythm Regular 09/25/23 08:30 Respiratory Rate 16 09/25/23 07:28 Respiratory Effort Normal, Non-Labored 09/25/23 08:30 Respiratory Depth Normal 09/25/23 08:30 Respiratory Pattern Normal 09/25/23 08:30 Blood Pressure 158/94 H 09/25/23 07:28 Blood Pressure Position Sitting 09/23/23 14:17 Pulse Oximetry 93 09/25/23 07:28 Oxygen Delivery Method Room Air 09/25/23 07:28 Oxygen Flow Rate 0 09/25/23 07:28 Fraction of Inspired Oxygen (FIO2) 21 09/25/23 00:06 Pain Level 5 09/25/23 08:30 Comment home CPAP. 09/25/23 00:10 Intake & Output 09/24/23 09/24/23 09/25/23 11:59 23:59 11:59 Intake Total 1783.334 / 2956.667 1173.333 / 2956.667 1360 / 1360 Output Total 1850 / 1850 1050 / 1050 Balance 1783.334 / 1106.667 -676.667 / 1106.667 310 / 310 Intake: IV 1783.334 / 2506.667 723.333 / 2506.667 1360 / 1360 Oral 450 / 450 Output: Urine 1850 / 1850 1050 / 1050 Other: Urine Color Yellow Pale Yellow Urine Appearance Clear Clear Clear Urine Odor None None Comment unable to measure the amount of urine. Voiding Methods Urinal Urinal Data Completed and Pending Labs on day of discharge: Labs from last 24 hours 09/25/23 09/24/23 09/24/23 05:58 15:59 11:30 WBC 7.91 9.71 RBC 4.27 L 4.46 Hgb 13.0 L 13.7 Hct 37.5 L 39.5 L MCV 88 89 MCH 30.4 30.7 MCHC 34.7 34.7 RDW 12.7 12.6 Plt Count 206 197 MPV 10.3 9.4 Immature Gran % 0.1 0.2 Neutrophils % 69.9 74.6 Lymphocytes % 16.7 13.6 Monocytes % 9.0 9.7 Eosinophils % 3.7 1.5 Basophils % 0.6 0.4 Nucleated RBC % 0.0 0.0 Absolute Neutrophils 5.53 7.24 H Absolute Lymphocytes 1.32 1.32 Absolute Monocytes 0.71 0.94 H Absolute Eosinophils 0.29 0.15 Absolute Basophils 0.05 0.04 Sodium 144 142 Potassium 3.3 L 3.2 L Chloride 109 H 106 Carbon Dioxide 28.1 28.3 Anion Gap 6.9 7.7 BUN 10 15 Creatinine 1.3 1.4 H Est GFR (CKD-EPI 2020) 57.29 52.41 Glucose 110 H 112 H Calcium 8.6 8.6 Magnesium 1.8 Add-On Test Request DONE PFSH All Active Problems (Updated 09/24/23 @ 11:54 by Olga Jones NP) KIDNEY TRANSPLANT (Acute 09/16/15) [facility]-09/16/15 Acute diverticulitis (Acute) Physical deconditioning (Acute) Gait difficulty (Acute) Meibomian gland dysfunction (MGD) of upper and lower eyelid of left eye (Acute ~08/2022) Meibomian gland dysfunction (MGD) of upper and lower eyelid of right eye (Acute ~08/2022) [place] (degenerative) of macula, bilateral (Acute) [place] note 08/15/22 Age-related nuclear cataract, bilateral (Acute) [place] note 08/15/22 Dry mouth (Acute) Periodic limb movement disorder (Acute) Central sleep apnea (Acute) [facility] current use of 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 drug (Acute) Diverticulitis of intestine with perforation (Acute) Pacemaker (Acute) dual lead [employer]onic [place] 01/31/2022 RIGHT SIDED Presence of Watchman left atrial appendage closure device (Acute) 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, anticoagulant stopped Altered mental status (Acute) Hypertensive retinopathy (Acute ~09/27/20) PSYCHIATRICPEE 09/27/20- MILD TO MODERATE-KB Spinal stenosis (Acute) L5-S1 Subsequent non-ST elevation (NSTEMI) myocardial infarction within 4 weeks of initial infarction (Acute) stents Status post rotator cuff repair (Acute) Postoperative stiffness of total knee replacement (Chronic) Olecranon bursitis, left elbow (Chronic) Arthritis of left elbow (Acute) Tubular adenoma (Acute 09/12/15) 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 Microscopic hematuria (Acute 05/21/12) neg workup [facility]. Kidney transplant recipient (Chronic 09/16/15) 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 Need dialysis or transplant. 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 s/p hernia repair b. s/p knee arthroscopy c. s/p unspecified shoulder surgery d. s/p vasectomy Medical History History of diverticulitis (09/14/22) Fistula Obstructive sleep apnea Myocardial infarction Hepatitis C Treated and cured Chronic kidney disease Hypothyroidism CVA (cerebral vascular accident) CHF (congestive heart failure) Diabetes HTN (hypertension) Hyperlipemia GERD (gastroesophageal reflux disease) BPH (benign prostatic hyperplasia) Atrial fibrillation Surgical History History of arthroscopy of knee History of biopsy H/O bladder repair surgery History of hernia repair H/O vasectomy Rotator Cuff Repair left KIDNEY TRANSPLANT (09/16/15) [facility]-09/16/15 Colonoscopy - MAC 2009 BIOPSY, KIDNEY (10/16/14) [facility]-RIGHT Arthroplasty of knee 2006-right Family History Mother Essential hypertension Father Myocardial infarction Stroke Brother Essential hypertension Neoplasm Social History Smoking/Tobacco Use Status: Current-Occasional Tobacco Type: cigars Tobacco: How many years used: 20 Smoking risk assessment performed?: Yes Alcohol Intake: never Drug use: Occasionally Substance use type: marijuana Adopted: No Caregiver/Support person: Yes Foster care: No Household members: spouse Housing: house Number of Children: 2 number of grandchildren: 1 Communication Needs: None Education Level: high school 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 Pets and animals: Yes Pets and animals: dog(s) Sexually active: No Do you think of yourself as: straight/heterosexual Current gender identity: male What is your relationship status?: How often do you talk on the phone with friends or family?: three or more times per week Do you belong to any clubs or organized social groups?: no Panel score (0-1 are the most socially isolated patients): 2 Idalia/Sabianist: None Special idalia needs: No Seatbelt use: always Helmet use: Yes Helmet use: always Drive intox or ride w/intox waste collection driver: No Do you feel safe at home: Yes Do you feel safe in your relationship?: Yes Time Spent with Patient Time Spent with Patient: 45-69 minutes Time was spent: preparing to see the patient(eg.review tests), obtaining and/or reviewing separately otained hiistory, ordering medications,tests, procedures, referring, communicating with other health caregiver services home, indepentently interpreting results, counseling the patient and care coordination
[2023-09-25] MEDS: Potassium Chloride Liquid 20 MEQ PKT 40 MEQ PO (10:30)
[2023-09-25] MEDS: HYDROmorphone 2 MG/ML SYR 1 MG IVP (10:48)
--- NOTE | 2023-09-25 11:49 | CMDISCH_ITS ---
Date of service: 09/25/23 Time of Service: 11:49 LACE Index Scoring Tool Questions: Length of Stay (in days): 2 Was the patient admitted via the E.D.?: Yes Comorbidities: Previous M.I., Cerebrovascular Disease, Diabetes w/o Com plication, Congestive Heart Failure and Liver or Renal Disease E.D. Visits: 1 Answers: Total Score: 11 Risk of Readmission: High Risk Care Management Discharge Plan Reason for Hospitalization: acute diverticulitis Discharge Plan: Yash will be discharged home with no new services. He will follow up with his community providers and plan of care and transport with family. CM provided Yash with 2 copies of the [place] AD forms at his request. Yash will take them home and discuss them with his . CM offered to assist with their completion and contact information provided for follow up. Patient/Family Education Needs: review of discharge instructions, activity, limitations, follow up plan, discuss [facility] Health Related Social Needs: No Data to Display
--- NOTE | 2023-09-25 13:46 | CHAPLAIN ---
Yash was resting in bed when I visited. His had just arrived. Yash said he believes he will be discharged later today and hopes to get home to [place] before the predicted snowstorm arrives. I explained my role and offered support.
--- NOTE | 2023-09-25 14:32 | NUR.NOTE ---
Nursing Note: An extensive discussion was held with the patient and patient's with this RN and SE[employer] POTAT[employer]UTTER Jones regarding instructions for discharge and the pain management plan at home due to concerns about sufficient pain control were voiced by patient's . Patient insisted he wishes to go home and endorsed sufficient pain management. Patient and his agreed to the pain management plan of OTC medication with the addition of tramadol in the case of uncontrolled pain but were instructed to return to the hospital if patient has increased discomfort. Patient and his stated they have a follow up appointment already with their PCP on Thursday. Patient had all belongings, stated he is comfortable with his current pain level of 4, and IV was removed prior to discharge.
== END 2023-09-25 14:16 | disposition home or self-care (01) | DRG 392 ==
LOC: ER 18:34 → MS 09-24 12:11
PROVIDERS: Nurse Practitioner Acute Care; Admitting Provider General Practice; Emergency Provider Emergency Medicine; PCP Family Medicine; Visit Provider General Practice
DX: K57.32 Diverticulitis of large intestine without perforation or abscess without bleeding (principal); Z94.0 Kidney transplant status; D84.821 Immunodeficiency due to drugs; N18.30 Chronic kidney disease, stage 3 unspecified; E11.22 Type 2 diabetes mellitus with diabetic chronic kidney disease; I12.9 Hypertensive chronic kidney disease with stage 1 through stage 4 chronic kidney disease, or unspecified chronic kidney disease; N40.0 Benign prostatic hyperplasia without lower urinary tract symptoms; E03.9 Hypothyroidism, unspecified; E11.319 Type 2 diabetes mellitus with unspecified diabetic retinopathy without macular edema; M54.50 Low back pain, unspecified; R26.9 Unspecified abnormalities of gait and mobility; G47.61 Periodic limb movement disorder; G47.31 Primary central sleep apnea; Z79.621 Long term (current) use of calcineurin inhibitor; Z79.84 Long term (current) use of oral hypoglycemic drugs
CPT/HCPCS: 00123; 36415; 80048; 80053; 83690; 96361; 96365; 96366; 96367; 96375; 96376; 99285; 74176; 81003; 83735; 85025; 99222; 99231; 99239; G0378; J0131; J0696; J1170; J1644; J1836; J3490; J7517

== ENCOUNTER 2023-11-12 01:12 | Outpatient (CLI) | payer MEDICARE, SELFPAY ==
[2023-11-12 11:28] LABS: Abs Immature Grans 0.04 10^3/uL (0.0-0.06); Absolute Basophil Count 0.09 10^3/uL (0.0-0.2); Absolute Eosinophil Count 0.41 10^3/uL (0.0-0.7); Absolute Lymphocyte Count 1.27 10^3/uL (1.2-3.4); Absolute Monocyte Count 0.47 10^3/uL (0.1-0.8); Absolute Neutrophil Count 6.83 10^3/uL (1.2-6.7); Eosinophils % 4.5 %; HGB 15.6 g/dL (13.5-17.5); Immature Grans % 0.4 %; Lymphocytes % 13.9 %; MCHC 33.2 % (32.0-36.0); MCV 90 fL (80-95); MPV 9.3 fL (8.0-11.0); Monocytes % 5.2 %; Platelet Count 279 10^3/uL (130-400); RDW 13.2 % (11.8-14.1); RDW-SD 43.7 fL; WBC 9.11 10^3/uL (4.4-10.8)
[2023-11-12 11:29] LABS: Bilirubin Negative (Negative); Blood Negative (Negative); Clarity Clear (Clear); Glucose Negative (Negative); Ketones Negative (Negative); Leukocyte Esterase Negative (Negative); Nitrite Negative (Negative); Urobilinogen 0.2 mg/dL (Up to 0.2)
[2023-11-12 11:37] LABS: Bacteria Negative HPF (Negative); C & S Indicated? No; Casts 0-2 Hyaline LPF (Negative); Crystals Mod Calcium Oxalate HPF (Negative); Epithelial Cells Rare HPF (Negative); Mucus Negative (Negative); RBC Negative HPF (0-2); WBC Negative HPF (0-5)
[2023-11-12 11:44] LABS: ALT 35 U/L (16-63); AST 27 U/L (15-37); Albumin 3.5 g/dL (3.4-5.0); Alkaline Phosphatase 76 U/L (46-116); Anion Gap 9.3 mmol/L (3-11); BUN 21 mg/dL (7-18); Bilirubin, Total 2.8 mg/dL (0.2-1.0); CO2 29.7 mmol/L (21.0-32.0); CREATININE 1.5 mg/dL (0.70-1.30); Calcium 9.8 mg/dL (8.5-10.1); Chloride 105 mmol/L (98-107); Estimated GFR 48.25 (mL/min/1.73m2); Glucose 133 mg/dL (74-106); Magnesium 1.3 mg/dL (1.8-2.4); PHOSPHORUS 3.1 mg/dL (2.6-4.7); Potassium 3.5 mmol/L (3.5-5.1); Sodium 144 mmol/L (136-145); Total Protein 7.9 g/dL (6.4-8.2); Uric Acid 7.8 mg/dL (3.5-7.2)
[2023-11-12 11:59] LABS: Cholesterol 95 mg/dL (<200)
[2023-11-12 12:16] LABS: Creatinine,Urine 136.16 mg/dL
[2023-11-12 12:17] LABS: COMMENT (LAB VIEW ONLY) 133.86 mg/dL; PROTEIN 27.3 mg/dL
[2023-11-12 12:57] LABS: Reticulocyte 1.6 % (0.5-2.4)
[2023-11-12 13:06] LABS: HDL Cholesterol 45 mg/dL (40-60); LDL CHOLESTEROL 34 mg/dL (<100); Triglyceride 152 mg/dL (<150)
[2023-11-12 13:12] LABS: Hemoglobin A1C 6.4 % (<5.7)
[2023-11-12 13:29] LABS: Vitamin D 25 Total 34.6 ng/mL (30-100)
[2023-11-13 11:33] LABS: Tacrolimus 6.2 ng/mL (See Note)
== END 2023-11-12 01:13 | disposition home or self-care (01) ==
LOC: LBO 01:12
PROVIDERS: Nurse Practitioner Family; PCP Family Medicine; Visit Provider Internal Medicine Nephrology
DX: Z79.899 Other long term (current) drug therapy (principal)
CPT/HCPCS: 36415; 80053; 82306; 83721; 83735; 80197; 81003; 81015; 82340; 82465; 82565; 83036; 83718; 84100; 84105; 84156; 84478; 84550; 85025; 85045

== ENCOUNTER 2023-11-13 11:43 | Emergency (ER) | payer MEDICARE, SELFPAY ==
[2023-11-13 11:49] VITALS: BP 143/66; PULSE 67; RESP 22; O2SAT 96
[2023-11-13 12:12] VITALS: BP 143/66; PULSE 67; RESP 22; O2SAT 96
--- NOTE | 2023-11-13 13:26 | DI.CT_ITS ---
Exam(s) CT LUMBAR SPINE RECONS CT ABDOMEN PELVIS WO EXAM: CT ABDOMEN PELVIS WO CLINICAL HISTORY: pain left back/flank. TECHNIQUE: Imaging Protocol: Axial computed tomography images with coronal and sagittal reformatted images were created and reviewed. Axial, coronal and sagittal images of the lumbar spine were reconstructed utilizing bone algorithm. Oral: yes / COMPARISON: CT CT RENAL COLIC WO from 09/23/[address] LUMBAR SPINE RECONS from 11/13/2023 FINDINGS: Lung Bases: No acute findings. Liver: Normal density. No suspicious mass. Gallbladder and biliary tract: Single gallstone noted. No gallbladder wall thickening. No biliary di lation. Pancreas: Normal density, no abnormal calcifications or inflammatory process. Spleen: Normal. Kidneys: Stable appearance of bilateral atrophic [place] renal kidneys. Stable left hydronephrosis. St able appearance of left iliac fossa renal transplant. No hydronephrosis of the transplant. no suspic ious masses seen. Adrenal glands: No masses seen. Lymph nodes: Within normal limits. Vasculature: Abdominal aorta non-dilated. Soft tissues: Midline surgical scar. Fatty containing left inguinal hernia. Bladder: Stable appearance of urinary bladder. Mild wall thickening.. No mass or calculi. Bowel: Diverticulosis of the sigmoid colon is noted. There is mild stranding around the proximal sigm oid. The findings appear improved from the prior exam. The appendix is normal. No small bowel dilatat ion. Peritoneal cavity: No ascites, collection or mesenteric inflammatory response. Reproductive organs: Prostate normal in size. Bones: Degenerative disc changes and facet in the spine, greatest at L5-S1. Disc bulging at L4-5. No gross evidence of focal disc herniation. Left L4 spondylolysis, unchanged from prior. No spondylolist hesis. IMPRESSION: No acute abnormality in the abdomen or pelvis.Stable appearance of left iliac fossa transplant kidney . I improvement in sigmoid diverticulitis. No acute abnormality of the lumbar spine. Multilevel degenerative changes. Findings called to Dr. Hutchins of the emergency department. RADIATION DOSE DELIVERED: 1,073.88mGy.cm Total DLP DATA REPOSITORY: All CT scans at this facility are submitted to the National Radiology Data Registry (NRDR) Dose Index Registry (DIR) with the [employer] (ACR). RADIATION OPTIMIZATION: All CT scans at this facility use at least one of these dose optimization te chniques: automated exposure control; mA and/or kV adjustment per patient size (includes targeted exa ms where dose is matched to clinical indication); or iterative reconstruction.
[2023-11-13 13:33] LABS: Lipase 35 U/L (16-77)
[2023-11-13] MEDS: Breeza Beverage 473 ML BTL PO (13:37)
[2023-11-13] MEDS: MAGNESIUM SULFATE 1 GM/100 ML BAG IVINF (14:06)
[2023-11-13 14:09] VITALS: BP 140/61; PULSE 68; O2SAT 94
--- NOTE | 2023-11-13 14:32 | ED.GENADUL_ITS ---
Discharge Plan Disposition Patient Disposition: Home Condition: Stable Discharge Details Clinical Impression: Back pain, Sigmoid diverticulitis Primary Care Provider: Urbano Jimenez ED Provider: Victor Manuel Hutchins Home Meds and New Rx's Prescriptions: Continued (DME) blood sugar diagnostic Strip 1 ea Miscellaneous BID Qty: 180 3RF Rx Instructions: test twice daily omeprazole 20 mg capsule,delayed release(DR/EC) 20 mg PO DAILY PRN (Reason: GERD) Qty: 90 3RF saxagliptin 5 mg tablet 5 mg PO DAILY Qty: 90 3RF metformin 500 mg tablet 500 mg PO BID Qty: 180 3RF hydralazine 100 mg tablet 100 mg PO BID Qty: 180 3RF hydrocodone-acetaminophen 5-325 mg tablet 1 tab PO Q8H MDD 15 mg PRN (Reason: pain) Qty: 21 0RF nitroglycerin 0.4 mg tablet, sublingual 0.4 mg SL Q5M PRN (Reason: chest pain) Qty: 30 0RF (DME) blood sugar diagnostic Strip See Rx Instructions .ROUTE .MEDSUPPLY Qty: 180 4RF Rx Instructions: test BID (DME) lancets 28 gauge misc 1 ea Miscellaneous DAILY Qty: 100 0RF Rx Instructions: FOR ONE TOUCH ULTRA MINI METER. NO INSULIN. DIAGNOSIS CODE E11.3 mycophenolate mofetil [CellCept] 250 MG capsule 250 mg PO BID ascorbic acid (vitamin C) [Vitamin C] 500 MG capsule, extended release 500 mg PO TID Centrum Silver 0.4-300-250 mg-mcg-mcg tablet 2 tab PO DAILY aspirin [Adult Low Dose Aspirin] 81 mg tablet,delayed release (DR/EC) 81 mg PO DAILY acetaminophen 500 mg capsule 500 mg PO Q8H PRN PRN (Reason: pain) (DME) blood-glucose meter Misc 1 ea Miscellaneous DAILY Qty: 1 0RF Rx Instructions: FOR ONE TOUCH ULTRA MINI; Dx E11.9, to keep HbA1c less than 6.5% glipizide 10 mg tablet extended release 24hr 10 mg PO BID Qty: 180 3RF amlodipine 5 mg tablet 5 mg PO DAILY Qty: 90 3RF levothyroxine 137 mcg tablet 137 mcg PO DAILY Qty: 90 3RF calcitriol 0.25 mcg capsule 0.5 mcg PO DAILY Qty: 180 3RF atorvastatin 40 mg tablet 40 mg PO QHS Qty: 90 3RF tamsulosin 0.4 mg capsule 0.4 mg PO DAILY Qty: 90 3RF tacrolimus [Prograf] 1 mg capsule 1 mg PO BID amoxicillin-pot clavulanate 875-125 mg tablet 1 tab PO BID Qty: 14 0RF metoprolol succinate 50 mg tablet extended release 24 hr 75 mg PO BID Patient Comments: TAKE 1&1/2 TABLETS BY MOUTH TWO TIMES A DAY Discharge Instructions Instructions: Diverticulitis (ED) Additional Instructions: Please continue current antibiotic as prescribed. Please call your doctor Thursday to discuss findings of CT. Please contact your primary care physician to arrange follow-up. Return to the ER immediately for any worsening or new concerning symptoms. Referrals: [facility] [Provider Group] Urbano Jimenez DO [Primary Care Provider] - HPI General Mode of arrival: ambulatory . Date/Time Provider Initiated Documentation: 11/13/23 12:04 . Limitations to Documentation: no limitations . Information obtained by: patient . HPI Narrative: 73-year-old male with history of multiple episodes of diverticulitis in the past, multiple medical problems including renal transplant 2016, long-term 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 use, chronic kidney disease, diabetes, hypertension, here with chief complaint of low back pain. Patient notes pain in his left low back and abdomen. Pain feels similar to prior flares of diverticulitis. Patient notes he had pain going on 2 weeks. He was seen by PCP and started on amoxicillin and tramadol. This did not help her symptoms. He was then prescribed hydrocodone. He is continue to have pain. Patient also notes intermittently having pain radiating into his left posterior leg. He has had loose stool and last night he had bowel incontinence in bed. No recent urinary continence. Related Data Home Medications Medication Instructions Recorded Confirmed mycophenolate mofetil 250 mg 250 mg PO BID 04/15/16 11/13/23 capsule (CellCept) ascorbic acid (vitamin C) 500 mg 500 mg PO TID 09/05/16 11/13/23 capsule,extended release (Vitamin C) blood sugar diagnostic #180 strips 03/04/19 11/13/23 omeprazole 20 mg capsule,delayed 20 mg PO DAILY PRN GERD #90 caps 06/17/19 11/13/23 release [id number] acid 0.4 2 tab PO DAILY 01/16/21 11/13/23 mg-lycopene 300 mcg-lutein 250 mcg tablet (Centrum Silver) acetaminophen 500 mg capsule 500 mg PO Q8H PRN PRN pain 07/17/22 11/13/23 aspirin 81 mg tablet,delayed 81 mg PO DAILY 07/17/22 11/13/23 release (Adult Low Dose Aspirin) blood-glucose meter #1 ea 10/06/22 11/13/23 glipizide 10 mg tablet, extended 10 mg PO BID #180 tabs 12/04/22 11/13/23 release 24 hr nitroglycerin 0.4 mg sublingual 0.4 mg sublingual Q5M PRN chest 12/22/22 11/13/23 tablet pain #30 tabs amlodipine 5 mg tablet 5 mg PO DAILY #90 tabs 04/16/23 11/13/23 levothyroxine 137 mcg tablet 137 mcg PO DAILY #90 tab-caps 05/01/23 11/13/23 atorvastatin 40 mg tablet 40 mg PO QHS #90 tabs 05/26/23 11/13/23 calcitriol 0.25 mcg capsule 0.5 mcg (2 x 0.25 mcg) PO DAILY 05/26/23 11/13/23 #180 caps tamsulosin 0.4 mg capsule 0.4 mg PO DAILY #90 tab-caps 05/26/23 11/13/23 saxagliptin 5 mg tablet 5 mg PO DAILY #90 tabs 06/25/23 11/13/23 tacrolimus 1 mg capsule, 1 mg PO BID 06/25/23 11/13/23 immediate-release (Prograf) metoprolol succinate 50 mg 75 mg PO BID 09/24/23 11/13/23 tablet,extended release 24 hr blood sugar diagnostic #180 ea 09/28/23 11/13/23 lancets 28 gauge #100 ea 09/28/23 11/13/23 hydralazine 100 mg tablet 100 mg PO BID #180 tabs 10/12/23 11/13/23 metformin 500 mg tablet 500 mg PO BID #180 tabs 10/12/23 11/13/23 hydrocodone 5 mg-acetaminophen 325 1 tab PO Q8H PRN pain #21 tabs 11/10/23 11/13/23 mg tablet amoxicillin 875 mg-potassium 1 tab PO BID #14 tabs 11/12/23 11/13/23 clavulanate 125 mg tablet Previous Rx's Medication Instructions Recorded blood sugar diagnostic #180 strips 03/04/19 omeprazole 20 mg capsule,delayed 20 mg PO DAILY PRN GERD #90 caps 06/17/19 release blood-glucose meter #1 ea 10/06/22 glipizide 10 mg tablet, extended 10 mg PO BID #180 tabs 12/04/22 release 24 hr nitroglycerin 0.4 mg sublingual 0.4 mg sublingual Q5M PRN chest 12/22/22 tablet pain #30 tabs amlodipine 5 mg tablet 5 mg PO DAILY #90 tabs 04/16/23 levothyroxine 137 mcg tablet 137 mcg PO DAILY #90 tab-caps 05/01/23 atorvastatin 40 mg tablet 40 mg PO QHS #90 tabs 05/26/23 calcitriol 0.25 mcg capsule 0.5 mcg (2 x 0.25 mcg) PO DAILY 05/26/23 #180 caps tamsulosin 0.4 mg capsule 0.4 mg PO DAILY #90 tab-caps 05/26/23 saxagliptin 5 mg tablet 5 mg PO DAILY #90 tabs 06/25/23 blood sugar diagnostic #180 ea 09/28/23 lancets 28 gauge #100 ea 09/28/23 hydralazine 100 mg tablet 100 mg PO BID #180 tabs 10/12/23 metformin 500 mg tablet 500 mg PO BID #180 tabs 10/12/23 hydrocodone 5 mg-acetaminophen 325 1 tab PO Q8H PRN pain #21 tabs 11/10/23 mg tablet amoxicillin 875 mg-potassium 1 tab PO BID #14 tabs 11/12/23 clavulanate 125 mg tablet Allergies Allergy/AdvReac Type Severity Reaction Status Date / Time strawberry Allergy Unknown Other (See Verified 11/13/23 11:54 Comment) IV contrast AdvReac Severe Other (See Uncoded 11/13/23 11:54 Comment) General Stated Complaint: Abd Prob ALICIA: 3 Review of Systems All systems reviewed & are unremarkable except as noted in HPI and below Constitutional Constitutional: Denies fever(s) Gastrointestinal Gastrointestinal: Reports as per HPI, Reports abdominal pain, Denies hematochezia and Reports diarrhea Musculoskeletal Musculoskeletal: Reports back pain Exam Const General: cooperative and no acute distress HENMT Mouth: moist mucous membranes Eyes Conjunctivae: normal conjunctivae Sclera: normal sclerae Neck Neck: trachea midline and supple Resp Auscultation: clear to auscultation bilaterally, no rales, no rhonchi and no wheezes Cardio Rate: regular rate and not tachycardic Rhythm: regular rhythm GI Palpation: soft, not firm, no guarding, no masses, not rigid and tender in the LLQ Auscultation: normal bowel sounds Back/Spine/Pelvis Back: CVA tenderness (lt) and No erythema Thoracic/Lumbar Spine: No thoracic spinal tenderness and lumbar spinal tenderness Skin General skin exam: no rashes or lesions noted Neuro General: patient alert, patient awake and tone normal Extrem General: no edema Psych Appearance: grossly normal Mental Status: mental status grossly normal Course Vital Signs Vital signs: Vital Signs Pulse 67 11/13/23 11:49 Respiratory Rate 22 11/13/23 11:49 Blood Pressure 143/66 H 11/13/23 11:49 Pulse Oximetry 96 11/13/23 11:49 Temperature Source Skin 11/13/23 12:12 Pulse 68 11/13/23 14:09 Respiratory Rate 22 11/13/23 12:12 Respiratory Effort Normal, Non-Labored 11/13/23 11:54 Blood Pressure 140/61 11/13/23 14:09 Blood Pressure Mean 87 11/13/23 14:09 Blood Pressure Position Sitting 11/13/23 12:12 Pulse Oximetry 94 11/13/23 14:09 Oxygen Delivery Method Room Air 11/13/23 14:09 Oxygen Flow Rate 0 11/13/23 14:09 Pain Level 7 11/13/23 12:12 Lab/Test Results Lab/Test Results: Laboratory Tests Range/Units 11/13/23 11/13/23 12:27 12:59 WBC Cancelled RBC Cancelled Hgb Cancelled Hct Cancelled MCV Cancelled MCH Cancelled MCHC Cancelled RDW Cancelled Plt Count Cancelled MPV Cancelled Immature Gran % Cancelled Neutrophils % Cancelled Band Neutrophils % Cancelled Lymphocytes % Cancelled Atypical Lymphs % Cancelled Monocytes % Cancelled Eosinophils % Cancelled Basophils % Cancelled Metamyelocytes % Cancelled Myelocytes % Cancelled Promyelocytes % Cancelled Other Cells % Cancelled Nucleated RBC % Cancelled Absolute Neutrophils Cancelled Absolute Lymphocytes Cancelled Absolute Monocytes Cancelled Absolute Eosinophils Cancelled Absolute Basophils Cancelled RBC Morphology Cancelled Polychromasia Cancelled Hypochromasia Cancelled Poikilocytosis Cancelled Basophilic Stippling Cancelled Anisocytosis Cancelled Microcytosis Cancelled Macrocytosis Cancelled Spherocytes Cancelled Tear Drop Cells Cancelled Ovalocytes Cancelled Stomatocytes Cancelled [place] Bodies Cancelled Evan Cells/Echinocytes Cancelled Acanthocytes (Spur) Cancelled Schistocytes Cancelled Lipase (16-77) U/L 35 Medical Decision Making 73-year-old male with multiple medical problems including history of diverticulitis, renal transplant, on 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, here with 2 weeks of generally not feeling well and left lower abdominal and low back pain. Symptoms similar to prior exacerbations of diverticulitis. Pain did not resolve with course of amoxicillin and tramadol. Patient is hemodynamically stable. Saturating well in no respiratory distress. He does have some abdominal tenderness left lower abdomen with no peritoneal findings. Considered for recurrent diverticulitis. Will obtain CT of the abdomen pelvis to assess for acute surgical pathology. Consider radiculopathy given pain radiation recently. I will obtain CT lumbar s pine. I reviewed labs that were drawn yesterday: No leukocytosis. Normal hemoglobin. Creatinine 1.5 with estimated GFR of 60. Lipase today normal. 1649 --CT of the abdomen pelvis with lumbar spinal reconstruction interpreted by radiology: IMPRESSION: No acute abnormality in the abdomen or pelvis.Stable appearance of left iliac fossa transplant kidney. I improvement in sigmoid diverticulitis. No acute abnormality of the lumbar spine. Multilevel degenerative changes. Seven views were obtained including flexion and extension lateral views. There is moderate to severe disc space loss of height at L5-S1, moderate loss of disc height also noted in lower thoracic and upper lumbar levels. There are very prominent hypertrophic endplate changes seen throughout the visualized thoracic and lumbar spine. There are moderate to severe facet hypertrophic degenerative changes noted as well, most marked in the lower lumbar spine. There is no spondylolysis or spondylolisthesis. There is no acute compression fracture, slight loss of height of T12 vertebral body appears to been present on prior MR of April 2019 and presumably represents chronic change. Flexion and extension lateral views show somewhat limited motion but are otherwise unremarkable. CT results were discussed with the patient. Patient is currently on a course of Augmentin. I will have him continue this and follow-up with his primary care physician on Thursday. Usual and customary discharge instructions were reviewed with the patient and his . Lab Data Lab results reviewed: Yes I reviewed the patient's lab results. Labs: Laboratory Tests Range/Units 11/13/23 11/13/23 11/13/23 12:27 12:59 15:15 WBC Cancelled RBC Cancelled Hgb Cancelled Hct Cancelled MCV Cancelled MCH Cancelled MCHC Cancelled RDW Cancelled Plt Count Cancelled MPV Cancelled Immature Gran % Cancelled Neutrophils % Cancelled Band Neutrophils % Cancelled Lymphocytes % Cancelled Atypical Lymphs % Cancelled Monocytes % Cancelled Eosinophils % Cancelled Basophils % Cancelled Metamyelocytes % Cancelled Myelocytes % Cancelled Promyelocytes % Cancelled Other Cells % Cancelled Nucleated RBC % Cancelled Absolute Neutrophils Cancelled Absolute Lymphocytes Cancelled Absolute Monocytes Cancelled Absolute Eosinophils Cancelled Absolute Basophils Cancelled RBC Morphology Cancelled Polychromasia Cancelled Hypochromasia Cancelled Poikilocytosis Cancelled Basophilic Stippling Cancelled Anisocytosis Cancelled Microcytosis Cancelled Macrocytosis Cancelled Spherocytes Cancelled Tear Drop Cells Cancelled Ovalocytes Cancelled Stomatocytes Cancelled [place] Bodies Cancelled Sanders Cells/Echinocytes Cancelled Acanthocytes (Spur) Cancelled Schistocytes Cancelled Lipase (16-77) U/L 35 Urine Color (Yellow) Yellow Urine Clarity (Clear) Clear Urine pH (5-8) 7.0 Ur Specific [place] (1.005-1.025) 1.020 Urine Protein (Neg-Trace) mg/dL Negative Urine Ketones (Negative) mg/dL Negative Urine Blood (Negative) Negative Urine Nitrite (Negative) Negative Urine Bilirubin (Negative) Negative Urine Urobilinogen (Up to 0.2) mg/dL 0.2 Ur Leukocyte Esterase (Negative) Negative Urine Glucose (Negative) mg/dL Negative Quality:SDOH Health Related Social Needs: No Data to Display PFSH All Active Problems Sigmoid diverticulitis (Acute) Back pain (Acute) Abdominal pain (Acute) KIDNEY TRANSPLANT [place]Ac[place] 09[place]16/15[place] [facility] [place] diverticulitis (Acute) Physical deconditioning (Acute) Gait difficulty (Acute) Meibomian gland dysfunction (MGD) of upper and lower eyelid of left eye (Acute ~08/2022) Meibomian gland dysfunction (MGD) of upper and lower eyelid of right eye (Acute ~08/2022) [place] (degenerative) of macula, bilateral (Acute) [place] note 08/15/22 Age-related nuclear cataract, bilateral (Acute) [place] note 08/15/22 Dry mouth (Acute) Periodic limb movement disorder (Acute) Central sleep apnea (Acute) custodial current use of 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 drug (Acute) Diverticulitis of intestine with perforation (Acute) Pacemaker (Acute) dual lead [employer] [place] 01/31/2022 RIGHT SIDED Presence of Watchman left atrial appendage closure device (Acute) [facility] [place] Long-term current use of 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 biologic agent (Chronic) Vitamin D deficiency (Acute ~05/2022) Osteoarthritis of left knee (Acute) Parkinsonism (Acute) Tremor (Acute) Acute diverticulitis (Acute) - confirmed by CT , inpt at [facility] Bradycardia (Chronic) Vasogenic edema (Acute) Hypertension (Chronic) Hiccups (Acute) 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, [place] [facility] [place] stopped Altered mental status (Acute) Hypertensive retinopathy (Acute ~09/27/20) [place] 09/27/20- MILD TO MODERATE-KB Spinal stenosis (Acute) L5-S1 Subsequent non-ST elevation (NSTEMI) myocardial infarction within 4 weeks of initial infarction (Acute) stents Status post rotator cuff repair (Acute) Postoperative stiffness of total knee replacement (Chronic) Olecranon bursitis, left elbow (Chronic) Arthritis of left elbow (Acute) Tubular adenoma (Acute 09/12/15) 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 Microscopic hematuria (Acute 05/21/12[place] [facility] 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 Need dialysis or transplant. 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 s/p hernia repair b. s/p knee arthroscopy c. s/p unspecified shoulder surgery d. s/p vasectomy Medical History History of diverticulitis (09/14/22) Fistula Obstructive sleep apnea Myocardial infarction Hepatitis C Treated and cured Chronic kidney disease Hypothyroidism CVA (cerebral vascular accident) CHF (congestive heart failure) Diabetes HTN (hypertension) Hyperlipemia GERD (gastroesophageal reflux disease) BPH (benign prostatic hyperplasia) Atrial fibrillation Surgical History History of arthroscopy of knee History of biopsy H/O bladder repair surgery History of hernia repair H/O vasectomy Rotator Cuff Repair left Colonoscopy - [facility] 2009 BIOPSY, [place]10/16/14[place] [facility] [place] 2006-right Family History Mother Essential hypertension Father Myocardial infarction Stroke Brother Essential hypertension Neoplasm Social History Smoking/Tobacco Use Status: Current-Occasional Tobacco Type: cigars Tobacco: How many years used: 20 Smoking risk assessment performed?: Yes Alcohol Intake: never Drug use: Occasionally Substance use type: marijuana Adopted: No Caregiver/Support person: Yes Foster care: No Household members: spouse Housing: house Number of Children: 2 number of grandchildren: 1 Communication Needs: None Education Level: high school 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 Pets and animals: Yes Pets and animals: dog(s) Sexually active: No Do you think of yourself as: straight/heterosexual Current gender identity: male What is your relationship status?: How often do you talk on the phone with friends or family?: three or more times per week Do you belong to any clubs or organized social groups?: no Panel score (0-1 are the most socially isolated patients): 2 Idalia/Pentecostal: None Special idalia needs: No Seatbelt use: always Helmet use: Yes Helmet use: always Drive intox or ride w/intox pick up driver: No Do you feel safe at home: Yes Do you feel safe in your relationship?: Yes
[2023-11-13 15:20] LABS: Bilirubin Negative (Negative); Blood Negative (Negative); Clarity Clear (Clear); Glucose Negative (Negative); Ketones Negative (Negative); Leukocyte Esterase Negative (Negative); Nitrite Negative (Negative); Urobilinogen 0.2 mg/dL (Up to 0.2)
== END 2023-11-13 17:02 | disposition home or self-care (01) ==
PROVIDERS: Emergency Provider Student in an Organized Health Care Education/Training Program; PCP Family Medicine
DX: M54.50 Low back pain, unspecified (principal); K57.32 Diverticulitis of large intestine without perforation or abscess without bleeding; I13.0 Hypertensive heart and chronic kidney disease with heart failure and stage 1 through stage 4 chronic kidney disease, or unspecified chronic kidney disease; E11.22 Type 2 diabetes mellitus with diabetic chronic kidney disease; N18.9 Chronic kidney disease, unspecified; I50.9 Heart failure, unspecified; I25.2 Old myocardial infarction; E78.5 Hyperlipidemia, unspecified; F17.290 Nicotine dependence, other tobacco product, uncomplicated; I48.91 Unspecified atrial fibrillation; Z94.0 Kidney transplant status; Z79.82 Long term (current) use of aspirin; Z79.84 Long term (current) use of oral hypoglycemic drugs; Z79.69 Long term (current) use of other immunomodulators and immunosuppressants
CPT/HCPCS: 80053; 83690; 96365; 99284; 74176; 81003; 85025; J3475

== ENCOUNTER → 2024-01-21 11:16 | Outpatient (BNVA) | payer MEDICARE, SELFPAY | PROVIDERS: PCP Family Medicine; Referring Provider Family Medicine; Visit Provider Psychiatry & Neurology Neurology | DX: I61.0 Nontraumatic intracerebral hemorrhage in hemisphere, subcortical (principal); R06.6 Hiccough; I63.9 Cerebral infarction, unspecified; R25.1 Tremor, unspecified; R26.9 Unspecified abnormalities of gait and mobility; R53.81 Other malaise | CPT/HCPCS: 99213 ==

== ENCOUNTER 2024-02-14 10:49 | Emergency (ER) | payer MEDICARE, SELFPAY ==
[2024-02-14 10:56] VITALS: BP 146/58; PULSE 62; RESP 16; TEMP 37
--- OUTSIDE RECORDS SUMMARY | 2024-02-14 11:13 | XMS_ITS | Encounter Summary ---
Author Organization [facility] Address [address] [place] [address] Care Team Providers Care Drapery Supervisor Name Role Phone Urbano Denis DO Primary Care Provider +1- [phone] Encounter Details Date Type Department Care Team (Late st Contact Info) Description 12/24/2021 Lab Requisition [facility] Pathology & Laboratory Medicine - [facility] [address] [place] [address] Outr Resulting Lab, Provider Social History Tobacco Use Types Packs/Day Years Used Date Smoking Tobacco: Unknown Alcohol Use Standard Drinks/Week Comments Not Asked 0 (1 standard drink = 0.6 oz pur e alcohol) Sex and Gender Information Value Date Recorded Sex Assigned at Not on file Gender Identity Not on file Sexual Orientation Not on file documented as of this encounter Functional Status Functional Status Response Date of Assess ment Are you deaf or do you have serious difficulty h earing? No 10/16/2014 Are you blind or do you have serious difficulty seeing, even when wearing glasses? No 10/16/2014 Do you have serious difficul ty walking or climbing stairs? (5 years old or older) No 10/16/2014 Do you have difficulty dress ing or bathing? (5 years old or older) No 10/16/2014 Because of a physical, menta l, or emotional condition, do you have difficulty doing errands alone such as visiting a doctor's office or shopping? (15 years old or older) No 10/16/2014 Cognitive Status Response Date of Assessm ent Because of a physical, menta l, or emotional condition, do you have serious difficulty concentrating, remembering, or making decisions? (5 years old or older) No 10/16/2014 documented as of this encounter Plan of Treatment Not on file documented as of this encounter Procedures Procedure Name Priority Date/Time Associated Diagnosis Comments TACROLIMUS (FK506) Routine 12/24/2021 11 :50 EDT documented in this encounter Results * TACROLIMUS (FK506) (12/24/2021 11:50 EDT) Tacrolimus 5.7 See Note ng/mL 12/25/2021 13:39 EDT [facility] Comment: NOTE: Tacrolimus Therapeutic Range: 3-12 ng/mL (The goal level is based on clinical context). Assayed utilizing [employer] Chemiluminescent technology. ??Values obtained using different assay methods cannot be used interchangeably. Blood VENOUS BLOOD / Unknown 12/24/2021 11:50 EDT 12/24/2021 22:01 EDT Provider Outr Resulting Lab CHEMISTRY & BLOOD GAS ORDERABLES [facility] [address] [place] [address] documented in this encounter Visit Diagnoses Not on filedocumented in this encounter Care Teams Drapery Supervisor Relationship Specialty Start Date End Date Urbano Denis DO [address] [place] [address] PCP - General 09/27/14 documented as of this encounter
--- OUTSIDE RECORDS SUMMARY | 2024-02-14 11:13 | XMS_ITS | Encounter Summary ---
Author Organization [facility] Address [address] [place] [address] Care Team Providers Care Filler And Trimmer Name Role Phone Urbano Denis DO Primary Care Provider +1- [phone] Encounter Details Date Type Department Care Team (Late st Contact Info) Description 02/23/2021 Lab Requisition [facility] Pathology & Laboratory Medicine - [facility] [address] [place] [address] Outr Resulting Lab, Provider Social History Tobacco [...] Procedure Name Priority Date/Time Associated Diagnosis Comments ZZCOVID-19 TEST [facility] PCR Today 02/22/2021 12:30 EDT COVID-19 TESTING Routine 02/22/2021 12:3 0 EDT documented in this encounter Results * COVID-19 TEST [facility] PCR (02/22/2021 12:30 EDT) Swab ENTIRE NASOPHARYNX / Unknown 02/22/2021 12:30 EDT 02/23/2021 21:35 EDT Provider Outr Resulting Lab MICROBIOLOGY - GENERAL ORDERABLES [facility] [address] [place] [id number] * COVID-19 TESTING (02/22/2021 12:30 EDT) COVID-19 rt-PCR Result Negative Negative 02/24/2021 12:44 EDT [facility] Comment: This test has not been FDA cleared or approved. This test has been authorized by FDA under an EUA for use by authorized laboratories. This test has been authorized only for detection of nucleic acid from 2019-nCoV, not for any other viruses or pathogens. This test is only authorized for the duration of the declaration that circumstances exist justifying the authorization of emergency use of in vitro diagnostic tests for detection and/or diagnosis of 2019-nCoV under section 564(b)(1) of Act, 21 U.S.C ?? 360bbb-3(b) (1), unless the authorization is terminated or revoked sooner. Negative results do not preclude 2019-nCoV infection and should not be used as the sole basis for treatment or other patient management decisions. Negative results must be combined with clinical observations, patient history, and epidemiological information. Testing was performed using the ester SARS-CoV-2 assay ([employer] on the [employer] System Performing Lab [address] [facility] 02/24/2021 12:44 EDT [facility] Swab 02/22/2021 12:3 0 EDT 02/23/2021 21:35 EDT Provider Outr Resulting Lab MICROBIOLOGY - GENERAL ORDERABLES [facility] [address] [place] [address] documented in this encounter Visit Diagnoses Not on filedocumented in this encounter Care Teams Filler And Trimmer Relationship Specialty Start Date End Date Urbano Denis DO [address] [place] [address] PCP - General 09/27/14 documented as of this encounter
--- OUTSIDE RECORDS SUMMARY | 2024-02-14 11:13 | XMS_ITS | Encounter Summary ---
Author Organization [facility] Address [address] [place] [address] Care Team Providers Care Hoop Driving Machine Operator Name Role Phone Urbano Denis DO Primary Care Provider +1- [phone] Encounter Details Date Type Department Care Team (Late st Contact Info) Description 12/15/2019 Lab Requisition [facility] Pathology & Laboratory Medicine - [address] [address] Outr Resulting Lab, Provider Social History Tobacco [...] Date/Time Associated Diagnosis Comments TACROLIMUS (FK506) Routine 12/15/2019 10 :40 EDT documented in this encounter Results * TACROLIMUS (FK506) (12/15/2019 10:40 EDT) Tacrolimus 12.9 See Note ng/mL 12/16/2019 13:42 EDT [facility] Comment: NOTE: Therapeutic range is dependent on the clinical situation. Assayed utilizing [employer] Chemiluminescent technology. ??Values obtained using different assay methods cannot be used interchangeably. Blood VENOUS BLOOD / Unknown 12/15/2019 10:40 EDT 12/15/2019 16:55 EDT Provider Outr Resulting Lab CHEMISTRY & BLOOD GAS ORDERABLES [facility] [address] [place] [address] documented in this encounter Visit Diagnoses Not on filedocumented in this encounter Care Teams Hoop Driving Machine Operator Relationship Specialty Start Date End Date Urbano Denis DO [address] [employer] [employer], [place] [id number] PCP - General 09/27/14 documented as of this encounter
--- OUTSIDE RECORDS SUMMARY | 2024-02-14 11:13 | XMS_ITS | Continuity of Care Document ---
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 It does not include entries that were removed or entered in error. Problem Status Onset Date Problem Type Date of Resolution Comments Source CAD - Coronary Artery Disease ([facility] [id number]) Active Condition Oct 13, 2022 Entered By: CHARLEEN GONZALES Comment: Hx MIApr 2022 Entered By: CHARLEEN GONZALES Comment: PacemakerApr 2022 Entered By: CHARLEEN GONZALES Comment: Watchman [facility] Diabetes Mellitus Type 2 ([facility] [id number]) [facility] Exposure to potentially hazardous substance Active Condition Oct 13, 2022 Entered By: CHARLEEN GONZALES Comment: Agent orange [facility] History of cerebrovascular accident Active Condition [facility] History of hepatitis C Active Condition Oct 13, 2022 Entered By: CHARLEEN GONZALES Comment: Treated and cured [facility] History of renal transplant Active Condition Oct 13, 2022 Entered By: CHARLEEN GONZALES Comment: given Hep C + kidney [facility] HTN - Hypertension ([facility] [id number]) Active Condition [facility] Hyperlipidemia ([facility] [id number]) Active Condition [facility] Hypothyroidism ([facility] 14037054) [place] Condition [facility] 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 Diagnosis: ICD-10-CM Z77.29 Contact with and exposure to other hazardous substances Active Diagnosis [facility] Diagnosis: ICD-10-CM Z71.89 Other specified counseling Active Diagnosis [facility] Medications Combined list of outpatient medications from Department of Defense and Veterans Affairs facilities.Medications provided include 1) outpatient medications from the last 15 months, and 2) patient-reported medications. Medication Details Route Status Patient Instructions Prescription Expires Prescription Number Last Dispense Date Ordering Provider Order Date Order Qty Source AMLODIPINE BESYLATE 5MG TAB AMLODIPI NE BESYLATE 5MG TAB Non-VA TAKE ONE TABLET BY MOUTH ONCE DAILY Oct 13, 2022 Non-VA Document ed by: GARRICK GONZALES EN Document ed at: [facility] ORAL ACTIVE VALDO GONZALES N 2022 [facility] ASCORBIC ACID 500MG TAB ASCORBIC ACID 500MG TAB Non-VA TAKE ONE TABLET BY MOUTH ONCE DAILY Oct 13, 2022 Non-VA Document ed by: GARRICK GONZALES EN Document ed [facility] VALDO GONZALES N 2022 [facility] ASPIRIN 81MG TAB,EC ASPIRIN 81MG TAB,EC Non-VA TAKE ONE TABLET BY MOUTH ONCE DAILY Oct 13, 2022 Non-VA Document ed by: GARRICK GONZALES EN Document ed at: [facility] ORAL ACTIVE VALDO GONZALES 2022 [facility] ATORVASTATI N CA 40MG TAB ATORVAST ATIN CA 40MG TAB Non-VA TAKE ONE TABLET BY MOUTH ONCE DAILY Oct 13, 2022 Non-VA Document ed by: GARRICK GONZALES EN Document ed at: [facility] ORAL ACTIVE VALDO GONZALES 2022 [facility] CALCITRIOL 0.5MCG CAP CALCITRI OL 0.5MCG CAP Non-VA TAKE 1 CAPSULE BY MOUTH ONCE DAILY Oct 13, 2022 Non-VA Document ed by: GARRICK GONZALES EN Document ed at: [facility]IVE VALDO GONZALES N 2022 [facility] GLIPIZIDE 10MG TAB GLIPIZID E 10MG TAB Non-VA TAKE ONE TABLET BY MOUTH TWICE A DAY Oct 13, 2022 Non-VA Document ed by: GARRICK GONZALES EN Document ed at: [facility] ORAL ACTIVE VALDO GONZALES 2022 [facility] HYDRALAZINE HCL 100MG TAB HYDRALAZ INE HCL 100MG TAB Non-VA TAKE ONE TABLET BY MOUTH TWICE A DAY Oct 13, 2022 Non-VA Document ed by: GARRICK GONZALES EN Document ed at: [facility] ORAL ACTIVE VALDO GONZALES 2022 [facility] LEVOTHYROXI NE NA 137MCG TAB (SYNTHROID) LEVOTHYR OXINE NA 137MCG TAB (SYNTHRO ID) Non-VA TAKE ONE TABLET BY MOUTH EVERY MORNING Oct 13, 2022 Non-VA Document ed by: GARRICK GONZALES EN Document ed at: [facility] ORAL ACTIVE VALDO GONZALES 2022 [facility] MAGNESIUM GLUCONATE 500MG TAB MAGNESIU M GLUCONAT E 500MG TAB Non-VA TAKE TWO TABLETS BY MOUTH EVERY MORNING WITH BREAKFAS T Oct 13, 2022 Non-VA Document ed by: GARRICK GONZALES EN Document ed at: [facility] ORAL ACTIVE VALDO GONZALES 2022 [facility] METOPROLOL SUCCINATE 50MG TAB,SA METOPROL OL SUCCINAT E 50MG TAB,SA Non-VA TAKE ONE TABLET BY MOUTH TWICE A DAY Oct 13, 2022 Non-VA Document ed by: GARRICK GONZALES EN Document ed at: [facility] ORAL ACTIVE VALDO GONZALES 2022 [facility] MULTIVITAMI NS W/MINERALS CAP/TAB MULTIVIT AMINS W/MINERA LS CAP/TAB Non-VA TAKE ONE CAP/TAB BY MOUTH ONCE DAILY Oct 13, 2022 Non-VA Document ed by: GARRICK GONZALES EN Document ed at: [facility] ORAL ACTIVE VALDO GONZALES 2022 [facility] MYCOPHENOLA TE MOFETIL (CELLCEPT) 250MG CAP MYCOPHEN OLATE MOFETIL (CELLCEP T) 250MG CAP Non-VA TAKE 1 CAPSULE BY MOUTH TWICE A DAY Oct 13, 2022 Non-VA Document ed by: GARRICK GONZALES EN Document ed at: [facility] ORAL ACTIVE VALDO GONZALES N 2022 [facility] TACROLIMUS (PROGRAF) 1MG CAP TACROLIM US (PROGRAF ) 1MG CAP Non-VA TAKE 1 CAPSULE BY MOUTH EVERY MORNING AND TAKE 2 CAPSULES BY MOUTH EVERY EVENING kidney transpla nt Oct 13, 2022 Non-VA Document ed by: GARRICK GONZALES EN Document ed at: [facility] ORAL ACTIVE VALDO GONZALES N 2022 [facility] TAMSULOSIN HCL 0.4MG CAP TAMSULOS IN HCL 0.4MG CAP Non-VA TAKE 1 CAPSULE BY MOUTH ONCE DAILY Oct 13, 2022 Non-VA Document ed by: GARRICK GONZALES EN Document ed at: [facility] ORAL ACTIVE VALDO GONZALES N 2022 [facility] Allergies, Adverse Reactions, Alerts Combined list of allergies from Department of Defense and Veterans Affairs facilities. It does not include entries that were removed or entered in error. Substance Category Reaction Severity Reaction type Status Date Reported Comments Source MONA Propensity to adverse reactions to substance (finding) active 3 [facility] Immunizations Combined list of available immunizations from the Department of Defense and Veterans Affairs facilities. 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 Comments Source COVID-19 (PFIZER), MRNA, LNP-S, PF, 30 MCG/0.3 ML DOSE 2021 208 complet [facility] INFLUENZA, UNSPECIFIED FORMULATION 2021 88 complet ed [facility] COVID-19 (MODERNA), MRNA, LNP-S, PF, 100 MCG/0.5ML DOSE OR 50 MCG/0.25ML DOSE 3 2020 207 complet ed [facility] COVID-19 (MODERNA), MRNA, LNP-S, PF, 100 MCG/0.5ML DOSE OR 50 MCG/0.25ML DOSE 2 2020 207 complet [facility] COVID-19 (MODERNA), MRNA, LNP-S, PF, 100 MCG/0.5ML DOSE OR 50 MCG/0.25ML DOSE 1 2020 207 complet ed [facility] Results Combined list of recent chemistry, hematology and other laboratory results from Department of Defense and Veterans Affairs, ranging from 15 months to all on record, depending upon the facility. Order Name Results Value Reference Range Date Interpretation Specimen Comments Source MAGNESIUM MAGNESIUM [MASS/VOLUME ] IN SERUM OR PLASMA 1.4 mg/dL 1.6 - 2.6 10/01 L Specimen Type: PLASMA Comment: Tests performed on Mesuro (405) [id number] Ordering Provider: CHARLEEN GONZALES Report Released Date/Time: Sep 03, 2022 12:59 PM Reporting Lab: [facility] [address] [facility] [address] Performing Lab: [facility] [address] [facility] [address] [facility] URINALYSIS W/REFLEX TO CULTURE COLOR OF URINE Yellow 10/01 Specimen Type: URINE No comment entered. Ordering Provider: CHARLEEN GONZALES Report Released Date/Time: Sep 03, 2022 12:59 PM Reporting Lab: [facility] [address] [facility] [address] Performing Lab: [facility] [address] [facility] [address] [facility] URINALYSIS W/REFLEX TO CULTURE SPECIFIC GRAVITY OF URINE BY REFRACTOMETR Y 1.024 1.003 - 1.030 10/01 Specimen Type: URINE No comment entered. Ordering Provider: CHARLEEN GONZALES Report Released Date/Time: Sep 03, 2022 12:59 PM Reporting Lab: [facility] [address] [facility] [address] Performing Lab: [facility] [address] [facility] [address] [facility] URINALYSIS W/REFLEX TO CULTURE UROBILINOGEN [MASS/VOLUME ] IN URINE <2.0mg/ dL <2.0 - 2.0 10/01 Specimen Type: URINE No comment entered. Ordering Provider: CHARLEEN GONZALES Report Released Date/Time: Sep 03, 2022 12:59 PM Reporting Lab: [facility] [address] [facility] [address] Performing Lab: [facility] [address] [facility] [address] [facility] URINALYSIS W/REFLEX TO CULTURE BILIRUBIN.TO J CARLOS [PRESENCE] IN URINE BY TEST STRIP NEG 10/01 Specimen Type: URINE No comment entered. Ordering Provider: CHARLEEN GONZALES Report Released Date/Time: Sep 03, 2022 12:59 PM Reporting Lab: [facility] [address] [facility] [address] Performing Lab: [facility] [address] [facility] [address] [facility] URINALYSIS W/REFLEX TO CULTURE KETONES [PRESENCE] IN URINE NEGmg/d L 10/01 Specimen Type: URINE No comment entered. Ordering Provider: CHARLEEN GONZALES Report Released Date/Time: Sep 03, 2022 12:59 PM Reporting Lab: [facility] [address] [facility] [address] Performing Lab: [facility] [address] [facility] [address] [facility] URINALYSIS W/REFLEX TO CULTURE GLUCOSE [MASS/VOLUME ] IN URINE BY TEST STRIP NEGmg/d L 10/01 Specimen Type: URINE No comment entered. Ordering Provider: CHARLEEN GONZALES Report Released Date/Time: Sep 03, 2022 12:59 PM Reporting Lab: [facility] [address] [facility] [address] Performing Lab: [facility] [address] [facility] [address] [facility] URINALYSIS W/REFLEX TO CULTURE PROTEIN [MASS/VOLUME ] IN URINE BY TEST STRIP TRACEmg /dL 10/01 Specimen Type: URINE No comment entered. Ordering Provider: CHARLEEN GONZALES Report Released Date/Time: Sep 03, 2022 12:59 PM Reporting Lab: [facility] [address] [facility] [address] Performing Lab: [facility] [address] [facility] [address] [facility] URINALYSIS W/REFLEX TO CULTURE PH OF URINE BY TEST STRIP 6.5 5 - 8 10/01 Specimen Type: URINE No comment entered. Ordering Provider: CHARLEEN GONZALES Report Released Date/Time: Sep 03, 2022 12:59 PM Reporting Lab: [facility] [address] [facility] [address] Performing Lab: [facility] [address] [facility] [address] [facility] URINALYSIS W/REFLEX TO CULTURE LEUKOCYTES [#/AREA] IN URINE SEDIMENT BY MICROSCOPY HIGH POWER FIELD 3 /[HPF] 0 - 5 10/01 Specimen Type: URINE No comment entered. Ordering Provider: CHARLEEN GONZALES Report Released Date/Time: Sep 03, 2022 12:59 PM Reporting Lab: [facility] [address] [facility] [address] Performing Lab: [facility] [address] [facility] [address] [facility] URINALYSIS W/REFLEX TO CULTURE ERYTHROCYTES [#/AREA] IN URINE SEDIMENT BY MICROSCOPY HIGH POWER FIELD 4 /[HPF] 0 - 3 10/01 H Specimen Type: URINE No comment entered. Ordering Provider: CHARLEEN GONZALES Report Released Date/Time: Sep 03, 2022 12:59 PM Reporting Lab: [facility] [address] [facility] [address] Performing Lab: [facility] [address] [facility] [address] [facility] URINALYSIS W/REFLEX TO CULTURE APPEARANCE OF URINE CLEAR 10/01 Specimen Type: URINE No comment entered. Ordering Provider: CHARLEEN GONZALES Report Released Date/Time: Sep 03, 2022 12:59 PM Reporting Lab: [facility] [address] [facility] [address] Performing Lab: [facility] [address] [facility] [address] [facility] URINALYSIS W/REFLEX TO CULTURE HEMOGLOBIN [PRESENCE] IN URINE NEG 10/01 Specimen Type: URINE No comment entered. Ordering Provider: CHARLEEN GONZALES Report Released Date/Time: Sep 03, 2022 12:59 PM Reporting Lab: [facility] [address] [facility] [address] Performing Lab: [facility] [address] [place] [facility] [place] [address] [facility] URINALYSIS W/REFLEX TO CULTURE NITRITE [PRESENCE] IN URINE BY TEST STRIP NEG 10/01 Specimen Type: URINE No comment entered. Ordering Provider: CHARLEEN GONZALES Report Released Date/Time: Sep 03, 2022 12:59 PM Reporting Lab: [facility] [address] [facility] [address] Performing Lab: [facility] [address] [facility] [address] [facility] URINALYSIS W/REFLEX TO CULTURE LEUKOCYTES [PRESENCE] IN URINE NEG 10/01 Specimen Type: URINE No comment entered. Ordering Provider: CHARLEEN GONZALES Report Released Date/Time: Sep 03, 2022 12:59 PM Reporting Lab: [facility] [address] [facility] [address] Performing Lab: [facility] [address] [facility] [address] [facility] MICROALBUM IN/CREATIN INE RATIO PANEL CREATININE [MASS/VOLUME ] IN URINE 128.0 mg/dL 10/01 Specimen Type: URINE No comment entered. Ordering Provider: CHARLEEN GONZALES Report Released Date/Time: Sep 03, 2022 12:59 PM Reporting Lab: [facility] [address] [facility] [address] Performing Lab: [facility] [address] [facility] [address] [facility] MICROALBUM IN/CREATIN INE RATIO PANEL MICROALBUMIN [MASS/VOLUME ] IN URINE 14.9 mg/dL 0.0 - 29.9 10/01 Specimen Type: URINE No comment entered. Ordering Provider: CHARLEEN GONZALES Report Released Date/Time: Sep 03, 2022 12:59 PM Reporting Lab: [facility] [address] [facility] [address] Performing Lab: [facility] [address] [facility] [address] [facility] MICROALBUM IN/CREATIN INE RATIO PANEL MICROALBUMIN /CREATININE [MASS RATIO] IN URINE 116.4 mg/g 0.0 - 29.9 10/01 H Specimen Type: URINE No comment entered. Ordering Provider: CHARLEEN GONZALES Report Released Date/Time: Sep 03, 2022 12:59 PM Reporting Lab: [facility] [address] [facility] [address] Performing Lab: [facility] [address] [facility] [address] [facility] 25-OH(WRJ) CALCIFEROL (VIT D2) [MASS/VOLUME ] IN SERUM OR PLASMA 37.7 ng/mL 20 - 50 10/01 Specimen Type: SERUM No comment entered. Ordering Provider: CHARLEEN GONZALES Report Released Date/Time: Sep 03, 2022 12:59 PM Reporting Lab: [facility] [address] [facility] [address] Performing Lab: [facility] [address] [facility] [address] [facility] TSH THYROTROPIN [UNITS/VOLUM E] IN SERUM OR PLASMA 0.73 u[IU]/m L 0.35 - 5.00 10/01 Specimen Type: SERUM No comment entered. Ordering Provider: CHARLEEN GONZALES Report Released Date/Time: Sep 03, 2022 12:59 PM Reporting Lab: [facility] [address] [facility] [address] Performing Lab: [facility] [address] [facility] [address] [facility] VITAMIN B-12 COBALAMIN (VITAMIN B12) [MASS/VOLUME ] IN SERUM OR PLASMA 840 pg/mL 200 - 900 10/01 Specimen Type: SERUM No comment entered. Ordering Provider: CHARLEEN GONZALES Report Released Date/Time: Sep 03, 2022 12:59 PM Reporting Lab: [facility] [address] [facility] [address] Performing Lab: [facility] [address] [facility] [address] [facility] CBC PROFILE LEUKOCYTES [#/VOLUME] IN BLOOD BY AUTOMATED COUNT 10.3 10*3/uL 4.5 - 11.0 10/01 Specimen Type: BLOOD No comment entered. Ordering Provider: CHARLEEN GONZALES Report Released Date/Time: Sep 03, 2022 12:59 PM Reporting Lab: [facility] [address] [place] [facility] [place] [address] Performing Lab: [facility] [address] [place] [facility] [place] [address] [facility] CBC PROFILE ERYTHROCYTES [#/VOLUME] IN BLOOD BY AUTOMATED COUNT 4.54 10*6/uL 4.23 - 5.66 10/01 Specimen Type: BLOOD No comment entered. Ordering Provider: CHARLEEN GONZALES Report Released Date/Time: Sep 03, 2022 12:59 PM Reporting Lab: [facility] [address] [place] [facility] [place] [address] Performing Lab: [facility] [address] [facility] [address] [facility] CBC PROFILE HEMOGLOBIN [MASS/VOLUME ] IN BLOOD 13.8 g/dL 12.8 - 17 10/01 Specimen Type: BLOOD No comment entered. Ordering Provider: CHARLEEN GONZALES Report Released Date/Time: Sep 03, 2022 12:59 PM Reporting Lab: [facility] [address] [place] [facility] [place] [address] Performing Lab: [facility] [address] [place] [facility] [place] [address] [facility] CBC PROFILE HEMATOCRIT [VOLUME FRACTION] OF BLOOD BY AUTOMATED COUNT 41.8 39.2 - 50.4 10/01 Specimen Type: BLOOD No comment entered. Ordering Provider: CHARLEEN GONZALES Report Released Date/Time: Sep 03, 2022 12:59 PM Reporting Lab: [facility] [address] [place] [facility] [place] [address] Performing Lab: [facility] [address] [place] [facility] [place] [address] [facility] CBC PROFILE MCV [ENTITIC VOLUME] BY AUTOMATED COUNT 92.1 fL 82 - 99 10/01 Specimen Type: BLOOD No comment entered. Ordering Provider: CHARLEEN GONZALES Report Released Date/Time: Sep 03, 2022 12:59 PM Reporting Lab: [facility] [address] [place] [facility] [place] [address] Performing Lab: [facility] [address] [facility] [address] [facility] CBC PROFILE MCH [ENTITIC MASS] BY AUTOMATED COUNT 30.4 pg 26.2 - 32.6 10/01 Specimen Type: BLOOD No comment entered. Ordering Provider: CHARLEEN GONZALES Report Released Date/Time: Sep 03, 2022 12:59 PM Reporting Lab: [facility] [address] [facility] [address] Performing Lab: [facility] [address] [facility] [address] [facility] CBC PROFILE MCHC [MASS/VOLUME ] BY AUTOMATED COUNT 33.0 g/dL 30.8 - 35.1 10/01 Specimen Type: BLOOD No comment entered. Ordering Provider: CHARLEEN GONZALES Report Released Date/Time: Sep 03, 2022 12:59 PM Reporting Lab: [facility] [address] [facility] [address] Performing Lab: [facility] [address] [facility] [address] [facility] CBC PROFILE PLATELETS [#/VOLUME] IN BLOOD BY AUTOMATED COUNT 270 10*3/uL 140 - 360 10/01 Specimen Type: BLOOD No comment entered. Ordering Provider: CHARLEEN GONZALES Report Released Date/Time: Sep 03, 2022 12:59 PM Reporting Lab: [facility] [address] [facility] [address] Performing Lab: [facility] [address] [facility] [address] [facility] CBC PROFILE PLATELET MEAN VOLUME [ENTITIC VOLUME] IN BLOOD BY AUTOMATED COUNT 10.3 fL 9.2 - 12.4 10/01 Specimen Type: BLOOD No comment entered. Ordering Provider: CHARLEEN GONZALES Report Released Date/Time: Sep 03, 2022 12:59 PM Reporting Lab: [facility] [address] [facility] [address] Performing Lab: [facility] [address] [facility] [address] [facility] CBC PROFILE ERYTHROCYTE DISTRIBUTION WIDTH [RATIO] BY AUTOMATED COUNT 13.2 12.0 - 16.0 10/01 Specimen Type: BLOOD No comment entered. Ordering Provider: CHARLEEN GONZALES Report Released Date/Time: Sep 03, 2022 12:59 PM Reporting Lab: [facility] [address] [facility] [address] Performing Lab: [facility] [address] [facility] [address] [facility] CBC PROFILE LYMPHOCYTES/ 100 LEUKOCYTES IN BLOOD BY AUTOMATED COUNT 17.2 14.0 - 42.3 10/01 Specimen Type: BLOOD No comment entered. Ordering Provider: CHARLEEN GONZALES Report Released Date/Time: Sep 03, 2022 12:59 PM Reporting Lab: [facility] [address] [facility] [address] Performing Lab: [facility] [address] [facility] [address] [facility] CBC PROFILE MONOCYTES/10 0 LEUKOCYTES IN BLOOD BY AUTOMATED COUNT 5.7 5.1 - 13.7 10/01 Specimen Type: BLOOD No comment entered. Ordering Provider: CHARLEEN GONZALES Report Released Date/Time: Sep 03, 2022 12:59 PM Reporting Lab: [facility] [address] [facility] [address] Performing Lab: [facility] [address] [facility] [address] [facility] CBC PROFILE GRANULOCYTES /100 LEUKOCYTES IN BLOOD BY AUTOMATED COUNT 67.4 43.7 - 75.8 10/01 Specimen Type: BLOOD No comment entered. Ordering Provider: CHARLEEN GONZALES Report Released Date/Time: Sep 03, 2022 12:59 PM Reporting Lab: [facility] [address] [facility] [address] Performing Lab: [facility] [address] [facility] [address] [facility] CBC PROFILE EOSINOPHILS/ 100 LEUKOCYTES IN BLOOD BY AUTOMATED COUNT 7.8 0.4 - 6.8 10/01 H Specimen Type: BLOOD No comment entered. Ordering Provider: CHARLEEN GONZALES Report Released Date/Time: Sep 03, 2022 12:59 PM Reporting Lab: [facility] [address] [facility] [address] Performing Lab: [facility] [address] [facility] [address] [facility] CBC PROFILE BASOPHILS/10 0 LEUKOCYTES IN BLOOD BY AUTOMATED COUNT 1.5 0.1 - 2.0 10/01 Specimen Type: BLOOD No comment entered. Ordering Provider: CHARLEEN GONZALES Report Released Date/Time: Sep 03, 2022 12:59 PM Reporting Lab: [facility] [address] [facility] [address] Performing Lab: [facility] [address] [facility] [address] [facility] PROFILE IMMATURE GRANULOCYTES /100 LEUKOCYTES IN BLOOD BY AUTOMATED COUNT 0.4 0.0 - 0.7 10/01 Specimen Type: BLOOD No comment entered. Ordering Provider: CHARLEEN GONZALES Report Released Date/Time: Sep 03, 2022 12:59 PM Reporting Lab: [facility] [address] [facility] [address] Performing Lab[facility] [address] [facility] [address] [facility] CBC PROFILE NUCLEATED ERYTHROCYTES [#/VOLUME] IN BLOOD BY AUTOMATED COUNT 0.0 /100{WB Cs} 0.0 - 0.0 10/01 Specimen Type: BLOOD No comment entered. Ordering Provider: CHARLEEN GONZALES Report Released Date/Time: Sep 03, 2022 12:59 PM Reporting Lab: [place] [facility] [address] [facility] [address] Performing Lab: [place] [facility] [address] [facility] [address] [facility] CBC PROFILE IMMATURE GRANULOCYTES [#/VOLUME] IN BLOOD 0.0 10*3/uL 0 - 0.06 10/01 Specimen Type: BLOOD No comment entered. Ordering Provider: CHARLEEN GONZALES Report Released Date/Time: Sep 03, 2022 12:59 PM Reporting Lab: [place] [facility] [address] [facility] [address] Performing Lab: [place] [facility] [address] [facility] [address] [facility] CBC PROFILE BASOPHILS [#/VOLUME] IN BLOOD BY AUTOMATED COUNT 0.2 10*3/uL 0.01 - 0.13 10/01 H Specimen Type: BLOOD No comment entered. Ordering Provider: CHARLEEN GONZALES Report Released Date/Time: Sep 03, 2022 12:59 PM Reporting Lab: [place] [facility] [address] [facility] [address] Performing Lab: [place] [facility] [address] [facility] [address] [place] [facility] CBC PROFILE EOSINOPHILS [#/VOLUME] IN BLOOD BY AUTOMATED COUNT 0.8 10*3/uL 0.03 - 0.44 10/01 H Specimen Type: BLOOD No comment entered. Ordering Provider: CHARLEEN GONZALES Report Released Date/Time: Sep 03, 2022 12:59 PM Reporting Lab: [place] [facility] [address] [facility] [address] Performing Lab: [place] [facility] [address] [facility] [address] [place] [facility] CBC PROFILE LYMPHOCYTES [#/VOLUME] IN BLOOD BY AUTOMATED COUNT 1.8 10*3/uL 1.0 - 3.2 10/01 Specimen Type: BLOOD No comment entered. Ordering Provider: CHARLEEN GONZALES Report Released Date/Time: Sep 03, 2022 12:59 PM Reporting Lab: [place] [facility] [address] [facility] [address] Performing Lab: [place] [facility] [address] [facility] [address] [place] [facility] CBC PROFILE MONOCYTES [#/VOLUME] IN BLOOD BY AUTOMATED COUNT 0.6 10*3/uL 0.3 - 1.1 10/01 Specimen Type: BLOOD No comment entered. Ordering Provider: CHARLEEN GONZALES Report Released Date/Time: Sep 03, 2022 12:59 PM Reporting Lab: [place] [facility] [address] [facility] [address] Performing Lab: [place] [facility] [address] [facility] [address] [place] [facility] CBC PROFILE NEUTROPHILS [#/VOLUME] IN BLOOD BY AUTOMATED COUNT 7.0 10*3/uL 2.2 - 7.6 10/01 Specimen Type: BLOOD No comment entered. Ordering Provider: CHARLEEN GONZALES Report Released Date/Time: Sep 03, 2022 12:59 PM Reporting Lab: [place] [facility] [address] [facility] [address] Performing Lab: [place] [facility] [address] [facility] [address] [facility] CBC PROFILE NUCLEATED ERYTHROCYTES [#/VOLUME] IN BLOOD BY AUTOMATED COUNT 0.00 10*3/uL 0 - 0 10/01 Specimen Type: BLOOD No comment entered. Ordering Provider: CHARLEEN GONZALES Report Released Date/Time: Sep 03, 2022 12:59 PM Reporting Lab: [place] [facility] [address] [facility] [address] Performing Lab: [place] [facility] [address] [facility] [address] [place] [facility] P4 GLU,BUN,CR EAT,LYTES, CA UREA NITROGEN [MASS/VOLUME ] IN SERUM OR PLASMA 19 mg/dL 7 - 25 10/01 Specimen Type: PLASMA Comment: Tests performed on Mesuro (405) SN:[id number] Ordering Provider: CHARLEEN GONZALES Report Released Date/Time: Sep 03, 2022 12:59 PM Reporting Lab: [place] [facility] [address] [facility] [address] Performing Lab: [place] [facility] [address] [facility] [address] [facility] P4 GLU,BUN,CR EAT,LYTES, CA SODIUM [MOLES/VOLUM E] IN SERUM OR PLASMA 140 mmol/L 135 - 145 10/01 Specimen Type: PLASMA Comment: Tests performed on Mesuro (405) SN:[id number] Ordering Provider: CHARLEEN GONZALES Report Released Date/Time: Sep 03, 2022 12:59 PM Reporting Lab: [place] [facility] [address] [facility] [address] Performing Lab: [place] [facility] [address] [facility] [address] [place] [facility] P4 GLU,BUN,CR EAT,LYTES, CA POTASSIUM [MOLES/VOLUM E] IN SERUM OR PLASMA 3.7 mmol/L 3.5 - 5.0 10/01 Specimen Type: PLASMA Comment: Tests performed on Mesuro (405) SN:[id number] Ordering Provider: CHARLEEN GONZALES Report Released Date/Time: Sep 03, 2022 12:59 PM Reporting Lab: [facility] [address] [facility] [address] Performing Lab: [facility] [address] [facility] [address] [facility] P4 GLU,BUN,CR EAT,LYTES, CA CHLORIDE [MOLES/VOLUM E] IN SERUM OR PLASMA 105 mmol/L 100 - 110 10/01 Specimen Type: PLASMA Comment: Tests performed on [employer] (405) SN:[id number] Ordering Provider: CHARLEEN GONZALES Report Released Date/Time: Sep 03, 2022 12:59 PM Reporting Lab: [facility] [address] [facility] [address] Performing Lab: [facility] [address] [facility] [address] [facility] P4 GLU,BUN,CR EAT,LYTES, CA CARBON DIOXIDE, TOTAL [MOLES/VOLUM E] IN SERUM OR PLASMA 27 mmol/L 20 - 30 10/01 Specimen Type: PLASMA Comment: Tests performed on Mesuro (405) SN:[id number] Ordering Provider: CHARLEEN GONZALES Report Released Date/Time: Sep 03, 2022 12:59 PM Reporting Lab: [facility] [address] [facility] [address] Performing Lab: [facility] [address] [facility] [address] [facility] P4 GLU,BUN,CR EAT,LYTES, CA ANION GAP IN SERUM OR PLASMA 8 mmol/L 4 - 16 10/01 Specimen Type: PLASMA Comment: Tests performed on Mesuro (405) SN:[id number] Ordering Provider: CHARLEEN GONZALES Report Released Date/Time: Sep 03, 2022 12:59 PM Reporting Lab: [facility] [address] [facility] [address] Performing Lab: [facility] [address] [facility] [address] [facility] P4 GLU,BUN,CR EAT,LYTES, CA GLUCOSE [MASS/VOLUME ] IN SERUM OR PLASMA 162 mg/dL 65 - 100 03/29 /2023 H Specimen Type: PLASMA Comment: Tests performed on [employer]ist (405) SN:[id number] Ordering Provider: CHARLEEN GONZALES Report Released Date/Time: Sep 03, 2022 12:59 PM Reporting Lab: [place] [facility] [address] [facility] [address] Performing Lab: [place] [facility] [address] [facility] [address] [place] [facility] P4 GLU,BUN,CR EAT,LYTES, CA CREATININE [MASS/VOLUME ] IN SERUM OR PLASMA 1.40 mg/dL 0.5 - 1.5 10/01 Specimen Type: PLASMA Comment: Tests performed on [employer]ist (405) SN:[id number] Ordering Provider: CHARLEEN GONZALES Report Released Date/Time: Sep 03, 2022 12:59 PM Reporting Lab: [place] [facility] [address] [facility] [address] Performing Lab: [place] [facility] [address] [facility] [address] [facility] P4 GLU,BUN,CR EAT,LYTES, CA CALCIUM [MASS/VOLUME ] IN SERUM OR PLASMA 9.7 mg/dL 8.5 - 10.5 10/01 Specimen Type: PLASMA Comment: Tests performed on [employer]ist (405) SN:[id number] Ordering Provider: CHARLEEN GONZALES Report Released Date/Time: Sep 03, 2022 12:59 PM Reporting Lab: [place] [facility] [address] [facility] [address] Performing Lab: [place] [facility] [address] [facility] [address] [facility] P4 GLU,BUN,CR EAT,LYTES, CA eGFR(CKD-EPI 2020) 53 mL/min 60 10/01 L Specimen Type: PLASMA Comment: Tests performed on [employer]ist (405) SN:[id number] Ordering Provider: CHARLEEN GONZALES Report Released Date/Time: Sep 03, 2022 12:59 PM Reporting Lab: [place] [facility] [address] [facility] [address] Performing Lab: [place] [facility] [address] [facility] [address] [place] [facility] LIVER PROFILE PROTEIN [MASS/VOLUME ] IN SERUM OR PLASMA 7.3 g/dL 6.0 - 8.5 10/01 Specimen Type: PLASMA Comment: Tests performed on [employer]ist (405) SN:[id number] Ordering Provider: CHARLEEN GONZALES Report Released Date/Time: Sep 03, 2022 12:59 PM Reporting Lab: [place] [facility] [address] [place] [facility] [place] [address] Performing Lab: [place] [facility] [address] [place] [facility] [place] [address] [place] [facility] LIVER PROFILE ALBUMIN [MASS/VOLUME ] IN SERUM OR PLASMA 3.4 g/dL 3.2 - 5.0 10/01 Specimen Type: PLASMA Comment: Tests performed on [employer] (405) SN:[id number] Ordering Provider: CHARLEEN GONZALES Report Released Date/Time: Sep 03, 2022 12:59 PM Reporting Lab: [place] [facility] [address] [place] [facility] [place] [address] Performing Lab: [place] [facility] [address] [facility] [address] [place] [facility] LIVER PROFILE BILIRUBIN.TO J CARLOS [MASS/VOLUME ] IN SERUM OR PLASMA 2.1 mg/dL 0.2 - 1.2 10/01 H Specimen Type: PLASMA Comment: Tests performed on [employer] (405) SN:[id number] Ordering Provider: CHARLEEN GONZALES Report Released Date/Time: Sep 03, 2022 12:59 PM Reporting Lab: [place] [facility] [address] [place] [facility] [place] [address] Performing Lab: [place] [facility] [address] [facility] [address] [place] [facility] LIVER PROFILE BILIRUBIN.DI RECT [MASS/VOLUME ] IN SERUM OR PLASMA 0.5 mg/dL 0 - 0.5 10/01 Specimen Type: PLASMA Comment: Tests performed on [employer] (405) SN:[id number] Ordering Provider: CHARLEEN GONZALES Report Released Date/Time: Sep 03, 2022 12:59 PM Reporting Lab: [place] [facility] [address] [place] [facility] [place] [address] Performing Lab: [place] [facility] [address] [facility] [address] [place] [facility] LIVER PROFILE ALKALINE PHOSPHATASE [ENZYMATIC ACTIVITY/VOL UME] IN SERUM OR PLASMA 78 U/L 40 - 150 10/01 Specimen Type: PLASMA Comment: Tests performed on [employer] Supp[employer] Specialist (405) SN:[id number] Ordering Provider: CHARLEEN GONZALES Report Released Date/Time: Sep 03, 2022 12:59 PM Reporting Lab: [place] [facility] [address] [facility] [address] Performing Lab: [place] [facility] [address] [facility] [address] [place] [facility] LIVER PROFILE ALANINE AMINOTRANSFE RASE [ENZYMATIC ACTIVITY/VOL UME] IN SERUM OR PLASMA 29 U/L 7 - 52 10/01 Specimen Type: PLASMA Comment: Tests performed on [employer] (405) SN:[id number] Ordering Provider: CHARLEEN GONZALES Report Released Date/Time: Sep 03, 2022 12:59 PM Reporting Lab: [place] [facility] [address] [facility] [address] Performing Lab: [place] [facility] [address] [facility] [address] [place] [facility] LIVER PROFILE ASPARTATE AMINOTRANSFE RASE [ENZYMATIC ACTIVITY/VOL UME] IN SERUM OR PLASMA 20 U/L 5 - 34 10/01 Specimen Type: PLASMA Comment: Tests performed on [employer] (405) SN:[id number] Ordering Provider: CHARLEEN GONZALES Report Released Date/Time: Sep 03, 2022 12:59 PM Reporting Lab: [place] [facility] [address] [place] [facility] [place] [address] Performing Lab: [place] [facility] [address] [facility] [address] [facility] LIVER [facility]FILE FIB-4 SCORE 1.02 {index} <2.67 - 2.67 10/01 Specimen Type: PLASMA Comment: Tests performed on [employer] (405) SN:[id number] Ordering Provider: CHARLEEN GONZALES Report Released Date/Time: Sep 03, 2022 12:59 PM Reporting Lab: [place] [facility] [address] [facility] [address] Performing Lab: [place] [facility] [address] [facility] [address] [place] [facility] LIPOPROTEI N CHOLESTERO L FRACT. PANEL CHOLESTEROL [MASS/VOLUME ] IN SERUM OR PLASMA 104 mg/dL 0 - 199 10/01 Specimen Type: PLASMA Comment: Tests performed on [employer] Supplier Specialist (405) SN:[id number] Ordering Provider: CHARLEEN GONZALES Report Released Date/Time: Sep 03, 2022 12:59 PM Reporting Lab: [place] [facility] [address] [place] [facility] [place] [address] Performing Lab: [place] [facility] [address] [place] [facility] [place] [address] [place] [facility] LIPOPROTEI N CHOLESTERO L FRACT. PANEL TRIGLYCERIDE [MASS/VOLUME ] IN SERUM OR PLASMA 219 mg/dL 0 - 149 10/01 H Specimen Type: PLASMA Comment: Tests performed on [employer] Supplier Specialist (405) SN:[id number] Ordering Provider: CHARLEEN GONZALES Report Released Date/Time: Sep 03, 2022 12:59 PM Reporting Lab: [place] [facility] [address] [place] [facility] [place] [address] Performing Lab: [place] [facility] [address] [facility] [address] [place] [facility] LIPOPROTEI N CHOLESTERO L FRACT. PANEL CHOLESTEROL IN HDL [MASS/VOLUME ] IN SERUM OR PLASMA 31 mg/dL 40 10/01 L Specimen Type: PLASMA Comment: Tests performed on [employer] (405) SN:[id number] Ordering Provider: CHARLEEN GONZALES Report Released Date/Time: Sep 03, 2022 12:59 PM Reporting Lab: [place] [facility] [address] [place] [facility] [place] [address] Performing Lab: [place] [facility] [address] [place] [facility] [place] [address] [place] [facility] LIPOPROTEI N CHOLESTERO L FRACT. PANEL CHOLESTEROL IN LDL [MASS/VOLUME ] IN SERUM OR PLASMA BY CALCULATION 29 mg/dL 0 - 129 10/01 Specimen Type: PLASMA Comment: Tests performed on [employer] Supplier Specialist (405) SN:[id number] Ordering Provider: CHARLEEN GONZALES Report Released Date/Time: Sep 03, 2022 12:59 PM Reporting Lab: [place] [facility] [address] [place] [facility] [place] [address] Performing Lab: [place] [facility] [address] [place] [facility] [place] [address] [place] [facility] Encounters Combined list of: 1) Encounters from Department of Veterans Affairs facilities going back up to thelast 18 months. 2) Encounters from the Department of Defense facilities going back up to 280 months. Location Location Details Encounter Type Encounter Number Reason For Visit Attending Provider ADM Date DC Date Status Disposition Source [facility] Outpatient Encounter [id number] 5.08/29 [facility] OFF/OP EST NOVEMBER X REQ PHY/QHP [id number] Diagnos is: ICD-10- CM Z71.89 Other specifi ed certified alcohol counselor ing<br/ > HAYDEN DAY 09/03 [facility] Outpatient Encounter [id number] 09/04 [facility] Outpatient Encounter [id number] 5.10/02 [facility] OFFICE O/P [facility] 60-74 MIN [id number] Diagnos is: ICD-10- CM Z77.29 Contact with and exposur e to other hazardo us substan germán<br/ > CHARLEEN GONZALES 10/08 [facility] UNLISTED SPEC DERM SVC/PX [id number] Diagnos is: ICD-10- CM Z13.89 Encount er for screeni ng for other disorde r
Celeste KIRKLAND 11/04 [facility] Outpatient Encounter [id number]. Diagnos is: ICD-10- CM D48.5 Neoplas m of uncerta in behavio r of skin
RAMYA GREGG 11/04 [facility] Outpatient Encounter [id number] 5.11/11 [facility] OFFICE O/P NEW LOW 30-44 MIN [id number] Diagnos is: ICD-10- CM Z94.0 Kidney transpl ant status< br/> RAMYA GREGGNIA 03/23 [facility] Outpatient Encounter [id number] 06/02 [facility] Outpatient Encounter [id number] 07/15 [facility] HEARING AID EXAM BOTH EARS [id number] Diagnos is: ICD-10- CM H90.3 Sensori neural hearing loss, bilater al
YULY PORTILLO Domenic 07/30 [facility] Outpatient Encounter [id number] 09/14 [facility] Social History Combined list of available smoking, tobacco, and other social history from Department of Defense and Veterans Affairs facilities. Social History Type Response Date Comment Sourc e Tobacco smoking status NHIS VA-TOBACCO USE > 15 LESS THAN 30 YEARS 09/03/2022 [facility] History of tobacco use VA-TOBACCO USE ADVICE 09/03/2022 [facility]
--- OUTSIDE RECORDS SUMMARY | 2024-02-14 11:13 | XMS_ITS | Encounter Summary ---
Author Organization [facility] Address [address] [place] [address] Care Team Providers Care Timber Selector Name Role Phone Urbano Denis DO Primary Care Provider +1- [phone] Encounter Details Date Type Department Care Team (Late st Contact Info) Description 08/20/2023 Lab Requisition [facility] Pathology & Laboratory Medicine - [facility] [address] [place] [address] Outr Resulting Lab, Provider Social History Tobacco [...] Procedure Name Priority Date/Time Associated Diagnosis Comments PHOSPHOROUS, URINE RANDOM Routine 08/20/2023 14:50 EST MAGNESIUM,URINE RANDOM Routine 08/20/2023 14:50 EST CALCIUM, URINE RANDOM Routine 08/20/2023 14:50 EST documented in this encounter Results * CALCIUM, URINE RANDOM (08/20/2023 14:50 EST) Calcium, Urine 14.4 See Note mg/dL 08/21/2023 8:58 EST [facility] Comment: NOTE: Reference range has not been established for calcium concentration in random urine specimens. Urine URINE / Unknown 08/20/2023 1 4:50 EST 08/20/2023 21:23 EST Provider Outr Resulting Lab URINALYSIS O RDERABLES Performing Organization Address [facility] Co de Phone Number [facility] [address] [place] [address] * MAGNESIUM,URINE RANDOM (08/20/2023 14:50 EST) Magnesium, Urine 5.0 See Note mg/dL 08/21/2023 9:00 EST [facility] Comment: NOTE: Reference range has not been established for magnesium concentration in random urine specimens. Urine URINE / Unknown 08/20/2023 1 4:50 EST 08/20/2023 21:23 EST Provider Outr Resulting Lab URINALYSIS O RDERABLES Performing Organization Address City/[facility]/ZIP Co de Phone Number [facility] [address] [place] [address] * PHOSPHORUS, URINE RANDOM (08/20/2023 14:50 EST) Phosphorous, Urine 28.9 See Note mg/dL 08/21/2023 8:58 EST [facility] Comment: NOTE: Reference range has not been established for phosporous concentration in random urine specimens. Urine URINE / Unknown 08/20/2023 1 4:50 EST 08/20/2023 21:23 EST Provider Outr Resulting Lab URINALYSIS O RDERABLES Performing Organization Address City/State/[facility] Co de Phone Number [facility] [address] [place] [address] documented in this encounter Visit Diagnoses Not on filedocumented in this encounter Care Teams Timber Selector Relationship Specialty Start Date End Date Urbano Denis DO [address] [place] [address] PCP - General 09/27/14 documented as of this encounter
--- OUTSIDE RECORDS SUMMARY | 2024-02-14 11:13 | XMS_ITS | Encounter Summary ---
Author Organization [facility] Address [address] [place] [address] Care Team Providers Care Ecommerce Merchandising Manager Name Role Phone Urbano Denis DO Primary Care Provider +1- [phone] Encounter Details Date Type Department Care Team (Late st Contact Info) Description 04/05/2021 Lab Requisition [facility] Pathology & Laboratory Medicine - [facility] [address] [place] [address] Outr Resulting Lab, Provider Social History Tobacco [...] Date/Time Associated Diagnosis Comments TACROLIMUS (FK506) Routine 04/05/2021 7:05 EDT documented in this encounter Results * TACROLIMUS (FK506) (04/05/2021 7:05 EDT) Tacrolimus 5.9 See Note ng/mL 04/06/2021 13:51 EDT [facility] Comment: NOTE: Therapeutic range is dependent on the clinical situation. Assayed utilizing [employer] Chemiluminescent technology. ??Values obtained using different assay methods cannot be used interchangeably. Blood VENOUS BLOOD / Unknown 04/05/2021 7:05 EDT 04/05/2021 20:50 EDT Provider Outr Resulting Lab CHEMISTRY & BLOOD GAS ORDERABLES Performing Organization Address City/State/[facility] Co de Phone Number [facility] [address] [place] [address] documented in this encounter Visit Diagnoses Not on filedocumented in this encounter Care Teams Ecommerce Merchandising Manager Relationship Specialty Start Date End Date Urbano Denis DO [address] [place] [address] PCP - General 09/27/14 documented as of this encounter
--- OUTSIDE RECORDS SUMMARY | 2024-02-14 11:13 | XMS_ITS | Encounter Summary ---
Author Organization [facility] Address [address] [place] [address] Care Team Providers Care Physician Practice Administrator Name Role Phone Adeel Urbano Kessler DO Primary Care Provider +1- [phone] Encounter Details Date Type Department Care Team (Late st Contact Info) Description 12/01/2014 Orders Only [facility] Nephrology - [address] [id number] Liu Adams MD Social History Tobacco Use Types Packs/Day Years [...] No 10/16/2014 documented as of this encounter Ordered Prescriptions Prescription Sig Dispensed Refills Start Date End Da te carvedilol (COREG) 12.5 mg tablet Take 1 Tab by mouth 2 times daily with breakfast and dinner 60 Tab 3 12/01/2014 12/05/2014 documented in this encounter Progress Notes * Liu Adams MD - 12/01/2014 1835 EDT Mara ( of [facility]) called me for a renewal of Carvedilol as he ran out of this medicine and she says that it was not called in when the dose was changed 2 months ago. I have verified the dose and have renewed script for 30 days with 3 more refills. Liu Adams MD documented in this encounter Plan of Treatment Not on file documented as of this encounter Visit Diagnoses Not on filedocumented in this encounter Discontinued Medications Medication Sig Discontinue Reason Start Date End Da te carvedilol (COREG) 12.5 mg tablet Take 12.5 mg by mouth 2 times daily with breakfast and dinner Reorder 12/01/2014 documented as of this encounter Care Teams Physician Practice Administrator Relationship Specialty Start Date End Date Urbano Denis DO [address] [place] [address] PCP - General 09/27/14 documented as of this encounter
--- OUTSIDE RECORDS SUMMARY | 2024-02-14 11:13 | XMS_ITS | Encounter Summary ---
Author Organization [facility] Address [address] [place] [address] Care Team Providers Care Manager Domestic Name Role Phone Urbano Denis DO Primary Care Provider +1- [phone] Encounter Details Date Type Department Care Team (Late st Contact Info) Description 09/12/2020 Lab Requisition [facility] Pathology & Laboratory Medicine - [facility] [address] [place] [address] Outr Resulting Lab, Provider Social History Tobacco [...] Date/Time Associated Diagnosis Comments TACROLIMUS (FK506) Routine 09/12/2020 11 :08 EST PTH INTACT Routine 09/12/2020 11:08 EST documented in this encounter Results * PTH INTACT (09/12/2020 11:08 EST) Intact PTH 71 19 - 88 pg/mL 09/13/2020 10:21 EST [facility] Blood VENOUS BLOOD / Unknown 09/12/2020 11:08 EST 09/12/2020 15:46 EST Provider Outr Resulting Lab CHEMISTRY & BLOOD GAS ORDERABLES Performing Organization Address [facility] Co de Phone Number [facility] [address] [place] [address] * TACROLIMUS (FK506) (09/12/2020 11:08 EST) Tacrolimus 15.2 See Note ng/mL 09/13/2020 14:02 EST [facility] Comment: NOTE: Therapeutic range is dependent on the clinical situation. Assayed utilizing [employer] Chemiluminescent technology. ??Values obtained using different assay methods cannot be used interchangeably. Blood VENOUS BLOOD / Unknown 09/12/2020 11:08 EST 09/12/2020 15:47 EST Provider Outr Resulting Lab CHEMISTRY & BLOOD GAS ORDERABLES Performing Organization Address [facility] Co de Phone Number [facility] [address] [place] [address] documented in this encounter Visit Diagnoses Not on filedocumented in this encounter Care Teams Manager Domestic Relationship Specialty Start Date End Date Urbano Denis DO [address] [place] [address] PCP - General 09/27/14 documented as of this encounter
--- OUTSIDE RECORDS SUMMARY | 2024-02-14 11:13 | XMS_ITS ---
Author Name [facility] [place] [facility] [place] Address [address] [place] [address] Care Team Providers Care Cap Blocker Name Role Phone CHARLEEN GONZALES Primary Care Provider Unavailabl e Insurance Providers: All historical and current Section Date Range: From patient's date of to the date document was created. This section includes the names of all active insurance providers for the patient. Insurance Provider Type of Coverage Plan Name Start of Policy Coverage End of Policy Coverage Group Number Member ID Insurance Provider's Telephone Number Policy Pretty's Name Patient's Relationship to Policy Pretty MEDICARE (WNR) MEDICARE (M) PART A Aug 06, 2013 PART A [id number] FUADRAMÓN ETHEL BEAN PATIENT MEDICARE (WNR) MEDICARE (M) PART B Aug 06, 2013 PART B [id number] FUADRAMÓNETHEL PATIENT Selected Encounter This section includes the information on record at [place] for the Encounter. Date/Time Encounter Type Encounter Description Reason Provider Source Mar 23, 2023 10:00 AM OFFICE O/P NEW LOW 30-44 MIN DERMATOLOGY ICD-10-CM Z94.0 Kidney transplant status JINA GREGG Encounter Template Text not used by [facility] Assessments - Encounter Diagnoses This section includes the primary and secondary diagnoses documented for the Encounter. Date/Time Primary/Secondary Diagnosis Diagnosis Name Provider Source Mar 23, 2023 10:49 AM PRIMARY Kidney transplant status JINA GREGG [facility] Mar 23, 2023 10:49 AM SECONDARY Actinic keratosis JINA GREGG [facility] Mar 23, 2023 10:49 AM SECONDARY Neoplasm of uncertain behavior of skin JINA GREGG [facility] Mar 23, 2023 10:49 AM SECONDARY Other hypertrophic disorders of the skin JINA GREGG [facility] Mar 23, 2023 10:49 AM SECONDARY Other seborrheic keratosis JINA GREGG [facility] Plan of Treatment: Future Appointments (+ 6 months) and Future Tests (+/- 45 days) The Plan of Treatment section includes future care activities for the patient from all [place] treatmentcilities. This section includes future appointments and future orders which are active, pending or scheduled. Future Appointments This section includes appointments that were scheduled to occur 6 months from the date of the Encounter, up to a maximum of 20 appointments. The data comes from all [place] treatment facilities. Appointment Date/Time Appointment Type Appointme nt Facility Name Jul 30, 2023 11:00 AM AMBULATORY - REHAB [facility] Encounter Notes: All associated encounter notes This section contains the clinical notes associated to the Encounter. Date/Time Encounter Note(s) Provider Source Mar 23, 2023 10:04 AM DERMATOLOGY CONSUL T: LOCAL TITLE: CONSULT-DERMATOLOGY STANDARD TITLE: DERMATOLOGY CONSULT DATE OF NOTE: MAR 23, 2023@10:04 ENTRY DATE: MAR 23, 2023@10:04:55 AUTHOR: BRADLEY GREGG EXP COSIGNER: URGENCY: STATUS: COMPLETED CC: Requested by primary care provider to see patient for consultation of 'leg and back - see recent telederm consult -Duration: 1 year.' HPI: 72 yo MALE with h/o two lesions - seen previously November 2022 via telederm: EXAM: lesion A (left anterior thigh): ~1+cm well defined dull pink plaque with central scale lesion B (right mid back): ~5mm well defined pink plaque with rim of scale IMPRESSION BASED ON IMAGES AND INFORMATION REVIEWED: PROBLEM A: Diagnosis: Neoplasm uncertain behavior: NMSC vs porokeratosis vs eczema (less likely d/t lack of symptoms and present for >1 yr) vs BLK PROBLEM B: Diagnosis: Neoplasm uncertain behavior: AK vs porokeratosis vs BLK Uncertain how long these have been present for as they are asymptomatic. His says >1-2 yrs. No personal h/o skin cancer, psoriasis or eczema. Here with his who says he also has dark spots on his left forearm and right posterior thigh. He doesn't wear a hat, SPF or any sun protection. Unaware of the spot on his left eyebrow that his noticed. Wonders if the skin tag under his left arm could be frozen; occ irritating. past MedHx: s/p renal transplant ([facility]) in 2016 +pacemaker, Watchman device and LUE fistula from prior dialysis PMHx: Exposure to potentially hazardous substaHistory of renal transplant ([facility] [id number]) History of hepatitis C ([facility] [id number] - Coronary Artery Disease ([facility] [id number]) Diabetes Mellitus Type 2 ([facility] [id number]) HTN - Hypertension ([facility] [id number]) Hyperlipidemia ([facility] [id number]) History of cerebrovascular accident ([facility] [id number]) Hypothyroidism ([facility] [id number]) 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 ([facility] [id number]) FAMHx: no h/o skin cancer SOCHx: -no blistering sunburns during childhood ROS: Feeling well. No other skin complaints. No issues with bleeding. MEDS: Active Outpatient Medications (excluding Supplies): Active Non-VA Medications Status 1) Non-VA AMLODIPINE BESYLATE 5MG TAB 5MG BY MOUTH ONCE ACTIVE DAILY 2) Non-VA ASCORBIC ACID 500MG TAB 500MG BY MOUTH ONCE ACTIVE DAILY 3) Non-VA ASPIRIN 81MG EC TAB 81MG BY MOUTH ONCE DAILY ACTIVE 4) Non-VA ATORVASTATIN CALCIUM 40MG TAB 40MG BY MOUTH ACTIVE ONCE DAILY 5) Non-VA CALCITRIOL 0.5MCG CAP 0.5MCG BY MOUTH ONCE ACTIVE DAILY 6) Non-VA GLIPIZIDE 10MG TAB 10MG BY MOUTH TWICE A DAY ACTIVE 7) Non-VA HYDRALAZINE HCL 100MG TAB 100MG BY MOUTH TWICE ACTIVE A DAY 8) Non-VA LEVOTHYROXINE NA (SYNTHROID) 137MCG TAB 137MCG ACTIVE BY MOUTH EVERY MORNING 9) Non-VA MAGNESIUM GLUCONATE 500MG TAB 1000MG BY MOUTH ACTIVE EVERY MORNING WITH BREAKFAST 10) Non-VA METOPROLOL SUCCINATE 50MG SA TAB 50MG BY MOUTH ACTIVE TWICE A DAY 11) Non-VA MULTIVITAMIN/MINERALS CAP/TAB ONE CAP/TAB BY ACTIVE MOUTH ONCE DAILY 12) Non-VA MYCOPHENOLATE (CELLCEPT) 250MG CAP 250MG BY ACTIVE MOUTH TWICE A DAY 13) Non-VA TACROLIMUS (PROGRAF) 1MG CAP 1MG BY MOUTH ACTIVE EVERY MORNING AND 2MG BY MOUTH EVERY EVENING 14) Non-VA TAMSULOSIN HCL 0.4MG CAP 0.4MG BY MOUTH ONCE ACTIVE DAILY ALLERGIES: STRAWBERRIES PHYSICAL EXAM: WNWD MALE in no acute distress. Alert and oriented x 3 A full-body skin exam was performed which included the hair, scalp, face, ears, conjunctiva, neck, chest, abdomen, back, upper and lower extremities, feet, hands, nails, and ( ) genitals. All areas inspected were within normal limits except for those listed below: ~1.0cm well defined dull pink thin plaque with peripheral scale left anterior thigh ~5mm dull pink thin papule on the right mid back ~4mm pink and brown slightly scaly papule on the left lateral eyebrow/presybeterian -few scattered brown dry verrucous stuck on plaque on the right posterior thigh, chest, upper arms -fleshy papule with stalk on the left axilla -no worrisome pigmented lesions or rashes A/P: # Thin pink plaque/papule, back/LLE: -s/p telederm November 2022 - images reviewed today without significant changes Possible diagnoses (benign Dx such as porokeratosis, BLK are possible or superficial BCC, SCC also possible) as well as options including shave biopsies, LN2 or monitoring (rec that d/t his history of transplant that these be treated or biopsied). Pt would like to freeze these today: After informed consent, joint agreement to treat with cryotherapy. 2 lesions treated with LN2 x 2 for 30 second freeze-thaw cycle. Wound care reviewed. -f/u in 6 mo, sooner prn; discussed what to monitor for if these resolve or not with treatment #. Papule, left presybeterian/eyebrow: c/w AK; iSK possible but less likely -discussed treatment options with pt and joint decision made to freeze, per above protocol #. Skin tag, left axilla: -irritating, so agreed to freeze per above protocol #. Seborrheic keratoses, UEs, back and LEs: -benign; reassured -can use emollients to damp skin if desired to help smooth these #. Patient was counselled regarding sun avoidance, daily use of sunscreen with an SPF of 30 or greater, long sleeves, brimmed hat. -monthly skin self-exams for lesions changing in size, shape, or color, or non-healing lesions -ABCDs of melanoma # RTC in ~6 mo for recheck of lesions on the back and left thigh treated with LN2 (pt may decide to cancel if these have resolved). 36 minutes were spent during today's encounter: including face to face, chart and/or outside documentation review, communication with other providers, and encounter documentation. /melvin/ BRADLEY SEN Signed: 03/23/2023 10:49 BRADLEY GREGG [facility]
--- OUTSIDE RECORDS SUMMARY | 2024-02-14 11:13 | XMS_ITS | Encounter Summary ---
Author Organization [facility] Address [address] [place] [address] Care Team Providers Care It Programmer Analyst Name Role Phone Urbano Denis DO Primary Care Provider +1- [phone] Encounter Details Date Type Department Care Team (Late st Contact Info) Description 06/21/2020 Lab Requisition [facility] Pathology & Laboratory Medicine - [address] [address] Outr Resulting Lab, Provider Social History Tobacco [...] Date/Time Associated Diagnosis Comments TACROLIMUS (FK506) Routine 06/21/2020 11 :25 EST documented in this encounter Results * TACROLIMUS (FK506) (06/21/2020 11:25 EST) Tacrolimus 11.6 See Note ng/mL 06/22/2020 13:51 EST [facility] Comment: NOTE: Therapeutic range is dependent on the clinical situation. Assayed utilizing [employer] Chemiluminescent technology. ??Values obtained using different assay methods cannot be used interchangeably. Blood VENOUS BLOOD / Unknown 06/21/2020 11:25 EST 06/21/2020 17:09 EST Provider Outr Resulting Lab CHEMISTRY & BLOOD GAS ORDERABLES [facility] [address] [place] [address] documented in this encounter Visit Diagnoses Not on filedocumented in this encounter Care Teams It Programmer Analyst Relationship Specialty Start Date End Date Urbano Denis DO [address] [place] [address] PCP - General 09/27/14 documented as of this encounter
--- OUTSIDE RECORDS SUMMARY | 2024-02-14 11:13 | XMS_ITS ---
Author Name [facility] [place] [facility] [place] Organization [facility] [place] Address [address] [place] [address] Care Team Providers Care Newspaper Correspondent Name Role Phone CHARLEEN GONZALES Primary Care [...] PART A Aug 06, 2013 PART A [id number] FUADRAMÓN ETHEL BEAN PATIENT MEDICARE (WNR) MEDICARE (M) PART B Aug 06, 2013 PART B [id number] FUADRAMÓNETHEL PATIENT Selected Encounter This section includes the information on record at [place] for the Encounter. Date/Time Encounter Type Encounter Description Reason Pro vider Source Jun 02, 2023 12:25 PM Outpatient Encounter ADMIN PAT ACTIVTIES (MASNONCT) IHE Encounter Template Text not used by [place] Plan of Treatment: Future Appointments (+ 6 months) and Future Tests (+/- 45 days) The Plan of Treatment section includes future care activities for the patient from all [facility] treatment[facility]ilities. This section includes future appointments and future orders which are active, pending or scheduled. Future Appointments This section includes appointments that were scheduled to occur 6 months from the date of the Encounter, up to a maximum of 20 appointments. The data comes from all [place] treatment facilities. Appointment Date/Time Appointment Type Appointme nt Facility Name Jul 30, 2023 11:00 AM AMBULATORY - REHAB [facility] Encounter Notes: All associated encounter notes This section contains the clinical notes associated to the Encounter. Date/Time Encounter Note(s) Provider Source Jun 02, 2023 12:51 PM ADDENDUM: LOCAL TITLE: Addendum STANDARD TITLE: ADDENDUM DATE OF NOTE: JUN 02, 2023@12:51:53 ENTRY DATE: JUN 02, 2023@12:51:53 AUTHOR: JENNA PORTILLO COSIGNER: URGENCY: STATUS: COMPLETED RTC placed for EVAL appointment. Please contact to schedule /melvin/ JENNA PORTILLO Amphibious Operations Officer Signed: 06/02/2023 12:52 Receipt Acknowledged By: 06/02/2023 13:17 /es/ STEPHANIE PALMER Advanced Auto Mechanics Teacher --- Original Document --- 06/02/23 CCC: SCHEDULING ADMINISTRATION: Patient Demographics Patient Name: ETHEL AKINS Patient Primary Phone: [phone] Patient Primary Address: [address] [place] [address] Patient : 1950 Patient Age: 72 Call Back Number: [phone] Caller/Recipient Relation to Patient: Other If Other Describe Relation to Patient: Caller Name: Mara Administrative Administrative Note Reason: Other Administrative Note Comments: Vet calling to request Vet be moved PACT to [place] from [place]. Vet is also requesting audiology consult for hearing aids. /es/ MURRAY MCNEAL 1 [facility] Signed: 06/02/2023 12:26 Receipt Acknowledged By: 06/02/2023 12:33 /es/ NAKUL BRICE Registered Nurse 06/02/2023 12:51 /melvin/ JENNA PORTILLO Amphibious Operations Officer * AWAITING SIGNATURE * NIMO MANCINI ASHLEY R [place] [facility] Jun 02, 2023 12:25 PM ADMINISTRATIVE NOT E: LOCAL TITLE: CCC: SCHEDULING ADMINISTRATION STANDARD TITLE: ADMINISTRATIVE NOTE DATE OF NOTE: JUN 02, 2023@12:25:53 ENTRY DATE: JUN 02, 2023@12:25:53 AUTHOR: MURRAY RUSSELL COSIGNER: URGENCY: STATUS: COMPLETED CCC: SCHEDULING ADMINISTRATION Has ADDENDA Patient Demographics Patient Name: ETHEL AKINS Patient Primary Phone: [phone] Patient Primary [address]: [address] [place] [id number] Patient : 1950 Patient Age: 72 Call Back Number: [phone] Caller/Recipient Relation to Patient: Other If Other Describe Relation to Patient: Caller Name: Mara Administrative Administrative Note Reason: Other Administrative Note Comments: Vet calling to request Vet be moved PACT to [place] from [place]. Vet is also requesting audiology consult for hearing aids. /melvin/ MURRAY RUSSELL VISN 1 [facility] Signed: 06/02/2023 12:26 Receipt Acknowledged By: 06/02/2023 12:33 /melvin/ NAKUL BRICE Registered Nurse 06/02/2023 12:51 /melvin/ JENNA PORTILLO Amphibious Operations Officer 06/02/2023 15:29 /melvin/ NIMO MANCINI 06/02/2023 ADDENDUM STATUS: COMPLETED RTC placed for EVAL appointment. Please contact to schedule /melvin/ JENNA PORTILLO Amphibious Operations Officer Signed: 06/02/2023 12:52 Receipt Acknowledged By: 06/02/2023 13:17 /melvin/ STEPHANIE PALMER Advanced Auto Mechanics Teacher 06/02/2023 ADDENDUM STATUS: COMPLETED assigned and scheduled w/ New Pact H 09/02/23 /melvin/ NIMO MANCINI Signed: 06/02/2023 15:29 MURRAY RUSSELL Ángela [facility]
--- OUTSIDE RECORDS SUMMARY | 2024-02-14 11:13 | XMS_ITS | Encounter Summary ---
Author Organization [facility] Address [address] [place] [address] Care Team Providers Care Harbor Patrol Police Name Role Phone Urbano Denis DO Primary Care Provider +1- [phone] Encounter Details Date Type Department Care Team (Late st Contact Info) Description 09/12/2022 Lab Requisition [facility] Pathology & Laboratory Medicine - [facility] [address] [place] [address] Outr Resulting Lab, Provider Social History Tobacco [...] Associated Diagnosis Comments PHOSPHOROUS, URINE RANDOM Routine 09/12/2022 13:55 EST MAGNESIUM,URINE RANDOM Routine 09/12/2022 13:55 EST CALCIUM, URINE RANDOM Routine 09/12/2022 13:55 EST documented in this encounter Results * CALCIUM, URINE RANDOM (09/12/2022 13:55 EST) Calcium, Urine 14.5 See Note mg/dL 09/13/2022 8:25 EST [facility] Comment: NOTE: Reference range has not been established for calcium concentration in random urine specimens. Urine URINE / Unknown 09/12/2022 1 3:55 EST 09/12/2022 21:45 EST Provider Outr Resulting Lab URINALYSIS O RDERABLES Performing Organization Address [facility] Co de Phone Number [facility] [address] [place] [address] * MAGNESIUM,URINE RANDOM (09/12/2022 13:55 EST) Magnesium, Urine 19.9 See Note mg/dL 09/13/2022 8:27 EST [facility] Comment: NOTE: Reference range has not been established for magnesium concentration in random urine specimens. Urine URINE / Unknown 09/12/2022 1 3:55 EST 09/12/2022 21:45 EST Provider Outr Resulting Lab URINALYSIS O RDERABLES Performing Organization Address City/[facility]/ZIP Co de Phone Number [facility] [address] [place] [address] * PHOSPHORUS, URINE RANDOM (09/12/2022 13:55 EST) Phosphorous, Urine 21.9 See Note mg/dL 09/13/2022 8:25 EST [facility] Comment: NOTE: Reference range has not been established for phosporous concentration in random urine specimens. Urine URINE / Unknown 09/12/2022 1 3:55 EST 09/12/2022 21:45 EST Provider Outr Resulting Lab URINALYSIS O RDERABLES Performing Organization Address City/State/[facility] Co de Phone Number [facility] [address] [place] [address] documented in this encounter Visit Diagnoses Not on filedocumented in this encounter Care Teams [employer] Police Relationship Specialty Start Date End Date Urbano Denis DO [address] [place] [address] PCP - General 09/27/14 documented as of this encounter
--- OUTSIDE RECORDS SUMMARY | 2024-02-14 11:13 | XMS_ITS | Encounter Summary ---
Author Organization [facility] Address [address] [place] [address] Care Team Providers Care Lodge Officer Name Role Phone Urbano Denis DO Primary Care Provider +1- [phone] Encounter Details Date Type Department Care Team (Late st Contact Info) Description 03/26/2023 Lab Requisition [facility] Pathology & Laboratory Medicine - [facility] [address] [place] [address] Outr Resulting Lab, Provider Social History Tobacco [...] Date/Time Associated Diagnosis Comments TACROLIMUS (FK506) Routine 03/26/2023 11 :30 EDT PTH INTACT Routine 03/26/2023 11:30 EDT documented in this encounter Results * PTH INTACT (03/26/2023 11:30 EDT) Intact PTH 27 19 - 88 pg/mL 03/26/2023 23:02 EDT [facility] Blood VENOUS BLOOD / Unknown 03/26/2023 11:30 EDT 03/26/2023 21:29 EDT Provider Outr Resulting Lab CHEMISTRY & BLOOD GAS ORDERABLES Performing Organization Address City/[facility] Co de Phone Number [facility] [address] [place] [address] * TACROLIMUS (FK506) (03/26/2023 11:30 EDT) Tacrolimus 7.6 See Note ng/mL 03/27/2023 13:40 EDT [facility] Comment: NOTE: Tacrolimus Therapeutic Range: 3-12 ng/mL (The goal level is based on clinical context). Assayed utilizing [employer] Chemiluminescent technology. ??Values obtained using different assay methods cannot be used interchangeably. Blood VENOUS BLOOD / Unknown 03/26/2023 11:30 EDT 03/26/2023 21:38 EDT Provider Outr Resulting Lab CHEMISTRY & BLOOD GAS ORDERABLES Performing Organization Address City/[facility] Co de Phone Number [facility] [address] [place] [address] documented in this encounter Visit Diagnoses Not on filedocumented in this encounter Care Teams Lodge Officer Relationship Specialty Start Date End Date Urbano Denis DO [address] [place] [address] PCP - General 09/27/14 documented as of this encounter
--- OUTSIDE RECORDS SUMMARY | 2024-02-14 11:13 | XMS_ITS | Encounter Summary ---
Author Organization [facility] Address [address] [place] [address] Care Team Providers Care Overhead Crane Technician Name Role Phone Urbano Denis DO Primary Care Provider +1- [phone] Encounter Details Date Type Department Care Team (Late st Contact Info) Description 11/12/2023 Lab Requisition [place] Pathology & Laboratory Medicine - [facility] [address] [place] [address] Outr Resulting Lab, Provider Social History Tobacco [...] Date/Time Associated Diagnosis Comments TACROLIMUS (FK506) Routine 11/12/2023 11 :16 EDT documented in this encounter Results * TACROLIMUS (FK506) (11/12/2023 11:16 EDT) Tacrolimus 6.2 See Note ng/mL 11/13/2023 11:28 EDT [facility] Comment: NOTE: Tacrolimus Therapeutic Range: 3-12 ng/mL (The goal level is based on clinical context). Assayed utilizing [employer] Chemiluminescent technology. ??Values obtained using different assay methods cannot be used interchangeably. Blood VENOUS BLOOD / Unknown 11/12/2023 11:16 EDT 11/12/2023 18:30 EDT Provider Outr Resulting Lab CHEMISTRY & BLOOD GAS ORDERABLES [facility] [address] [place], [place] [address] documented in this encounter Visit Diagnoses Not on filedocumented in this encounter Care Teams Overhead Crane Technician Relationship Specialty Start Date End Date Urbano Denis DO [address] [place] [address] PCP - General 09/27/14 documented as of this encounter
--- OUTSIDE RECORDS SUMMARY | 2024-02-14 11:13 | XMS_ITS | Encounter Summary ---
Author Organization [facility] Address [address] [place] [address] Care Team Providers Care Pharmacy Billing Adjudicator Name Role Phone Urbano Denis DO Primary Care Provider +1- [phone] Encounter Details Date Type Department Care Team (Late st Contact Info) Description 06/17/2019 Lab Requisition [facility] Pathology & Laboratory Medicine - [facility] [address] [place] [address] Unknown, Provider, Social History Tobacco Use Types Packs/Day Years [...] Date/Time Associated Diagnosis Comments TACROLIMUS (FK506) Routine 06/17/2019 11 :30 EST documented in this encounter Results * TACROLIMUS (FK506) (06/17/2019 11:30 EST) Tacrolimus 8.7 See Note ng/mL 06/18/2019 12:12 EST [facility] Comment: NOTE: Therapeutic range is dependent on the clinical situation. Assayed utilizing [employer] Chemiluminescent technology. ??Values obtained using different assay methohds cannot be used interchangeably. Blood VENOUS BLOOD / Unknown 06/17/2019 11:30 EST 06/17/2019 22:31 EST Provider Unknown CHEMISTRY & BLOOD GA S ORDERABLES Performing Organization Address City/State/[facility] Co de Phone Number [facility] [address] [place] [address] documented in this encounter Visit Diagnoses Not on filedocumented in this encounter Care Teams Pharmacy Billing Adjudicator Relationship Specialty Start Date End Date Urbano Denis DO [address] [place], [place] [address] PCP - General 09/27/14 documented as of this encounter
--- OUTSIDE RECORDS SUMMARY | 2024-02-14 11:13 | XMS_ITS | Encounter Summary ---
Author Organization [facility] Address [address] [place] [address] Care Team Providers Care Shale Processing Technician Name Role Phone Urbano Denis DO Primary Care Provider +1- [phone] Encounter Details Date Type Department Care Team (Late st Contact Info) Description 09/12/2020 Lab Requisition [facility] Pathology & Laboratory Medicine - [facility] [address] [place] [address] Outr Resulting Lab, Provider Social History Tobacco [...] Associated Diagnosis Comments PHOSPHOROUS, URINE RANDOM Routine 09/12/2020 11:08 EST MAGNESIUM,URINE RANDOM Routine 09/12/2020 11:08 EST CALCIUM, URINE RANDOM Routine 09/12/2020 11:08 EST documented in this encounter Results * CALCIUM, URINE RANDOM (09/12/2020 11:08 EST) Calcium, Urine 14.6 See Note mg/dL 09/13/2020 10:38 EST [facility] Comment: NOTE: Reference range has not been established for calcium concentration in random urine specimens. Urine URINE SPECIMEN COLLECTION, CLEAN CATCH / Unknown 09/12/2020 11:08 EST 09/12/2020 15:47 EST Provider Outr Resulting Lab URINALYSIS O RDERABLES Performing Organization Address [facility] Co de Phone Number [facility] [address] [place] [address] * MAGNESIUM,URINE RANDOM (09/12/2020 11:08 EST) Magnesium, Urine 3.6 See Note mg/dL 09/13/2020 10:41 EST [facility] Comment: NOTE: Reference range has not been established for magnesium concentration in random urine specimens. Urine URINE SPECIMEN COLLECTION, CLEAN CATCH / Unknown 09/12/2020 11:08 EST 09/12/2020 15:47 EST Provider Outr Resulting Lab URINALYSIS O RDERABLES Performing Organization Address City/[facility]/ZIP Co de Phone Number [facility] [address] [place] [address] * PHOSPHOROUS, URINE RANDOM (09/12/2020 11:08 EST) Phosphorous, Urine 45.4 See Note mg/dL 09/13/2020 10:38 EST [facility] Comment: NOTE: Reference range has not been established for phosporous concentration in random urine specimens. Urine URINE SPECIMEN COLLECTION, CLEAN CATCH / Unknown 09/12/2020 11:08 EST 09/12/2020 15:47 EST Provider Outr Resulting Lab URINALYSIS O RDERABLES Performing Organization Address City/State/[facility] Co de Phone Number [facility] [address] [place] [address] documented in this encounter Visit Diagnoses Not on filedocumented in this encounter Care Teams Shale Processing Technician Relationship Specialty Start Date End Date Urbano Denis DO [address] [place] [address] PCP - General 09/27/14 documented as of this encounter
--- OUTSIDE RECORDS SUMMARY | 2024-02-14 11:13 | XMS_ITS | Referral Summary ---
Author Organization [facility] Address [address] [place] [address] Care Team Providers Care Line Leader Name Role Phone Urbano Denis DO Primary Care Provider +1- [phone] Allergies No known active allergies Medications Medication Sig Dispensed Refills Start Date End Date Status magnesium oxide (MAG-OX) 400 mg tablet Take 400 mg by mouth daily Active amLODIPine (NORVASC) 10 mg tablet Take 10 mg by mouth daily Active pravastatin (PRAVACHOL) 20 mg tablet Take 20 mg by mouth daily Active omeprazole (PRILOSEC) 20 mg capsule Take 20 mg by mouth daily Active HYDROmorphone (DILAUDID) 2 mg tablet Take 1-2 Tabs by mouth every 6 hours as needed for Pain Daily Max: 16 mg 40 Tab 0 10/17/2014 Active CLOPIDOGREL BISULFATE (PLAVIX ORAL)Indications:REST ART OK'D BY DR MAR Take by mouth Active calcium carbonate (TUMS) 200 mg calcium (500 mg) tablet,chewable Take 1 Tab by mouth 3 times daily with meals 11/10/2014 Active doxazosin (CARDURA) 8 mg tablet Take 1 Tab by mouth daily 90 Tab 3 11/10/2014 Active furosemide (LASIX) 40 mg tablet Take 3 Tabs by mouth 2 times daily 540 Tab 3 11/10/2014 Active spironolactone (ALDACTONE) 25 mg tablet Take 1 Tab by mouth daily 90 Tab 3 11/23/2014 Active hydrALAzine (APRESOLINE) 25 mg tablet Take 3 Tabs by mouth 2 times daily 540 Tab 3 11/23/2014 Active carvedilol (COREG) 12.5 mg tablet Take 1 Tab by mouth 2 times daily with breakfast and dinner 180 Tab 0 12/05/2014 Active Active Problems Problem Noted Date Diagnosed Date Hepatitis C virus infection 01/04/2015 Hyperpotassemia 01/04/2015 Essential hypertension 11/10/2014 Overview: ICD10 Update Auto Replacement Retroperitoneal hematoma 10/17/2014 Chronic glomerulonephritis in diseases classifie d elsewhere 10/16/2014 Overview: 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 ([facility]) Overview: echo 09/17: ef 40%, concentric LVH Hyperparathyroidism, secondary renal (HCC-CMS) Overview: ICD10 Update Auto Replacement Type 2 diabetes mellitus wit h renal manifestations ([facility]) Overview: dx 2011, - retinopathy, - neuropathy ICD10 Update Auto Replacement Chronic kidney disease, stage V ([facility]) Social History Tobacco Use Types Packs/Day Years Used Date Smoking Tobacco: Unknown Alcohol Use Standard Drinks/Week Comments Not Asked 0 (1 standard drink = 0.6 oz pur e alcohol) Sex and Gender Information Value Date Recorded Sex Assigned at Not on file Gender Identity Not on file Sexual Orientation Not on file Last Filed Vital Signs Vital Sign Reading Time Taken Comments Blood Pressure 131/74 01/04/2015 1201 EDT Pulse 55 01/04/2015 1201 EDT Temperature 36 ??C (96.8 ??F) 10/17/2014 0528 EDT Respiratory Rate 16 10/17/2014 0528 EDT Oxygen Saturation 92% 10/17/2014 0528 EDT Inhaled Oxygen Concentration - - Weight 103.1 kg (227 lb 4.7 oz) 01/04/2015 1201 EDT Height 180.3 cm (5' 11) 10/16/20142051 EDT Body Mass Index 31.7 10/16/20142051 EDT Functional Status Functional Status Response Date of [...] (5 years old or older) No 10/16/2014 Plan of Treatment Not on file Advance Directives For more information, please contact: [phone] * Full Code (Latest Code Status on File) Date Activated Date Inactivated Comments 10/16/2014 19:13 10/17/2014 17:14 Question Answer Comments Reason for decision includes: Full code consistent with overall plan of care Who participated in the discussion? Patient * Full Code Date Activated Date Inactivated Comments 10/16/2014 8:43 10/16/2014 19:13 Question Answer Comments Reason for decision includes: Other (Spe cify in Comments) TO BE DONE AT TIME OF CONSENT IN PPR Who participated in the discussion? Other (Specify in Comments) TO BE DONE AT TIME OF CONSENT IN PPR Care Teams Line Leader Relationship Specialty Start Date End Date Urbano Denis DO [address] [place] [id number] PCP - General 09/27/14
--- OUTSIDE RECORDS SUMMARY | 2024-02-14 11:13 | XMS_ITS | Encounter Summary ---
Author Organization [facility] Address [address] [place] [address] Care Team Providers Care Braker Passenger Train Name Role Phone Urbano Denis DO Primary Care Provider +1- [phone] Encounter Details Date Type Department Care Team (Late st Contact Info) Description 09/12/2022 Lab Requisition [facility] Pathology & Laboratory Medicine - [facility] [address] [place] [address] Outr Resulting Lab, Provider Social History Tobacco [...] Date/Time Associated Diagnosis Comments TACROLIMUS (FK506) Routine 09/12/2022 14 :11 EST PTH INTACT Routine 09/12/2022 14:11 EST documented in this encounter Results * PTH INTACT (09/12/2022 14:11 EST) Intact PTH 41 19 - 88 pg/mL 09/12/2022 22:37 EST [facility] Blood VENOUS BLOOD / Unknown 09/12/2022 14:11 EST 09/12/2022 21:45 EST Provider Outr Resulting Lab CHEMISTRY & BLOOD GAS ORDERABLES Performing Organization Address [facility] Co de Phone Number [facility] [address] [place] [address] * TACROLIMUS (FK506) (09/12/2022 14:11 EST) Tacrolimus 14.2 See Note ng/mL 09/13/2022 12:32 EST [facility] Comment: NOTE: Tacrolimus Therapeutic Range: 3-12 ng/mL (The goal level is based on clinical context). Assayed utilizing [employer] Chemiluminescent technology. ??Values obtained using different assay methods cannot be used interchangeably. Blood VENOUS BLOOD / Unknown 09/12/2022 14:11 EST 09/12/2022 21:45 EST Provider Outr Resulting Lab CHEMISTRY & BLOOD GAS ORDERABLES Performing Organization Address City/[facility] Co de Phone Number [facility] [address] [place] [address] documented in this encounter Visit Diagnoses Not on filedocumented in this encounter Care Teams Braker Passenger Train Relationship Specialty Start Date End Date Urbano Denis DO [address] [place], [place] [address] PCP - General 09/27/14 documented as of this encounter
--- OUTSIDE RECORDS SUMMARY | 2024-02-14 11:13 | XMS_ITS | Encounter Summary ---
Author Name [facility] Address [address] [place] [id number] Care Team Providers Care Receptionist Telephone Operator Name Role Phone CHARLEEN GONZALES Primary Care [...] PART A Aug 06, 2013 PART A [id number] ETHEL AKINS SR PATIENT MEDICARE (WNR) MEDICARE (M) PART B Aug 06, 2013 PART B [id number] ETHEL AKINS PATIENT Selected Encounter This section includes the information on record at [place] for the Encounter. Date/Time Encounter Type Encounter Description Reason Pro vider Source Jul 15, 2023 12:22 PM Outpatient Encounter TELEPHONE TRIAGE IHE Encounter Template Text not used by [facility] Plan of Treatment: Future Appointments (+ 6 [...] 20 appointments. The data comes from all [place] treatment facilities. Appointment Date/Time Appointment Type Appointme nt Facility Name Jul 30, 2023 11:00 AM AMBULATORY - [facility] Encounter Notes: All associated encounter notes This section contains the clinical notes associated to the Encounter. Date/Time Encounter Note(s) Provider Source Jul 15, 2023 12:22 PM PRIMARY CARE ADMIN ISTRATIVE NOTE: LOCAL TITLE: Administrative Note/Primary Care STANDARD TITLE: PRIMARY CARE ADMINISTRATIVE NOTE DATE OF NOTE: JUL 15, 2023@12:22 ENTRY DATE: JUL 15, 2023@12:22:45 AUTHOR: HETAL ARREOLA EXP COSIGNER: URGENCY: STATUS: COMPLETED Administrative Note/Primary Care Has ADDENDA Questions about eligibility: The Email below was sent encrypted to the eligibility office. Good afternoon, I was just talking to Mara the of [employer], He is currently listed as a Category 8g ? was a 5g when he was scheduled for an appt on 07/30/23 for audiology - she is lost and confused as to what is going on and who to talk to ? I do not see any notes in the chart as to why he is no longer eligible or what they need to do now. We are unsure as to whether or not he should keep or cancel this appointment with audiology on 07/30/23. Could someone please reach out to her (Mara) at and see if this can be straightened out before the ? I spoke to the and he had me call her as she was handling all of this. If it could be documented and someone let us know whether or not he can keep the appointment that would be greatly appreciated. Thank you Hetal Bejarano OC ETHEL /melvin/ HETAL DAVENPORT Signed: 07/15/2023 12:23 07/30/2023 ADDENDUM STATUS: COMPLETED [place] came in for audiology appt today - asked if they cleared up the eligibility issue - he then called his who has been dealing with this. She said she spoke with Marisela Lopez from [place] - a extension service advisor and said he is abosolutely eligible [facility]. TW sent the following message via teams to Marisela to see if there is any updates as the also has an appt in August for [place], [place] to establish care. Message to Marisela Lopez: Good morning I have Ethel Urbano 47[address] here for audiology appt - he is still coming up as catagory 8g and not suppose to be scheduled for appts (also has appt in [place] to establish care) There are no notes in the chart or anything saying he qualifies. She said you told her no matter what he is eligible to get [facility] /melvin/ HETAL DAVENPORT Signed: 07/30/2023 10:57 08/31/2023 ADDENDUM STATUS: COMPLETED 's called. He is not enrolled at this time and she wishes to cancel upcoming appt. in [place]. He has outside PCP with great outside medical coverage and at this time does not need anything from the [facility]. She wishes to cancel and does not wish to reschedule at this time. She knows to reach out if anything in their situation changes. /melvin/ RICHIE DOWNEY Signed: 08/31/2023 11:19 HETAL ARREOLA [facility]
--- OUTSIDE RECORDS SUMMARY | 2024-02-14 11:13 | XMS_ITS | Encounter Summary ---
Author Organization [facility] Address [address] [place] [address] Care Team Providers Care Mechanical Unit Repairer Name Role Phone Urbano Denis DO Primary Care Provider +1- [phone] Reason for Visit * Reason Comments Chronic Kidney Disease Encounter Details Date Type Department Care Team (Late st Contact Info) Description 01/04/2015 10:40 EDT Office Visit [facility] Nephrology [address] [address] Que Lewis MD [address] [place] [id number] Chronic glomerulonephritis in diseases classified elsewhere (Primary Dx); Chronic kidney disease, stage V ([facility]); Type II or unspecified type diabetes mellitus with renal manifestations, not stated as uncontrolled; Secondary hyperparathyroidism (of renal origin); Unspecified essential hypertension; Hyperpotassemia Social History Tobacco Use Types Packs/Day Years Used Date Smoking Tobacco: Unknown Alcohol Use Standard Drinks/Week Comments Not Asked 0 (1 standard drink = 0.6 oz pur e alcohol) Sex and Gender Information Value Date Recorded Sex Assigned at Not on file Gender Identity Not on file Sexual Orientation Not on file documented as of this encounter Last Filed Vital Signs Vital Sign Reading Time Taken Comments Blood Pressure 131/74 01/04/2015 1201 EDT Pulse 55 01/04/2015 1201 EDT Temperature - - Respiratory Rate - - Oxygen Saturation - - Inhaled Oxygen Concentration - - Weight 103.1 kg (227 lb 4.7 oz) 01/04/2015 1201 EDT Height - - Body Mass Index 31.7 10/16/2014 2052 EDT documented in this encounter Functional Status Functional Status Response [...] No 10/16/2014 documented as of this encounter Patient Instructions * Patient Instructions* Que Lewis MD - 01/04/2015 11:12 EDT Stop losartan i will call on Thursday to see how you are doing documented in this encounter Progress Notes * Que Lewis MD - 01/04/2015 1041 EDT [facility] Note DATE OF SERVICE: 01/04/2015 NAME: Cody Bolden : 1950 Patient Active Problem List Diagnosis ??? Hepatitis C virus infection ??? Unspecified essential hypertension ??? (H)Retroperitoneal hematoma ??? 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 (H)Cardiomyopathy due to hypertension echo 09/17: ef 40%, concentric LVH ??? Secondary hyperparathyroidism (of renal origin) ??? Type II or unspecified type diabetes mellitus with renal manifestations, not stated as uncontrolled dx 2011, - retinopathy, - neuropathy ??? (H)Chronic kidney disease, stage IV (severe) INTERVAL HISTORY: Cody Bolden has been seen at [facility] regarding kidney transplantation and during that process has been diagnosed with hepatitis c virus infection. Blood pressure has been in 120-140 systolic range. He reports daily morning nausea without emesis which he attributes to his medications, though he has no nausea with his evening medications. Mild malaise continues. No anorexia, myoclonus, or chest pain. He cancelled his previously scheduled evaluation with the home dialysis clinic in [place] due to the travel distance, but remains potentially interested in home dialysis. Current Outpatient Prescriptions Medication Sig ??? amLODIPine (NORVASC) 10 mg tablet Take 10 mg by mouth daily ??? calcitRIOL (ROCALTROL) 0.25 mcg capsule Take 0.25 mcg by mouth daily ??? calcium carbonate (TUMS) 200 mg calcium (500 mg) tablet,chewable Take 1 Tab by mouth 3 times daily with meals ??? carvedilol (COREG) 12.5 mg tablet Take 1 Tab by mouth 2 times daily with breakfast and dinner ??? CLOPIDOGREL BISULFATE (PLAVIX ORAL) Take by mouth ??? doxazosin (CARDURA) 8 mg tablet Take 1 Tab by mouth daily ??? furosemide (LASIX) 40 mg tablet Take 3 Tabs by mouth 2 times daily ??? hydrALAzine (APRESOLINE) 25 mg tablet Take 3 Tabs by mouth 2 times daily ??? HYDROmorphone (DILAUDID) 2 mg tablet Take 1-2 Tabs by mouth every 6 hours as needed for Pain Daily Max: 16 mg ??? losartan (COZAAR) 100 mg tablet Take 100 mg by mouth daily ??? magnesium oxide (MAG-OX) 400 mg tablet Take 400 mg by mouth daily ??? omeprazole (PRILOSEC) 20 mg capsule Take 20 mg by mouth daily ??? pravastatin (PRAVACHOL) 20 mg tablet Take 20 mg by mouth daily ??? spironolactone (ALDACTONE) 25 mg tablet Take 1 Tab by mouth daily No Known Allergies PHYSICAL EXAMINATION: BP 131/74 Pulse 55 Wt 103.1 kg (227 lb 4.7 oz) Constitutional: No distress Mouth: No ulcers Cardiovascular: Edema to mid-waterman bilaterally Skin: No vasculitic rash Gastrointestinal: Abdomen soft, non-tender Eyes: Sclerae anicteric Respiratory: Clear to auscultation bilaterally Neuro: No asterixis STUDIES: 12/27/14 Na K CO2 BUN Cr Alb Ca PO4 PTH HGB 141 5.2 27 115 5.4 3.2 8.9 5.3 130 12.3 - IMPRESSION: Chronic kidney disease stage 5, proteinuric - kidney disease continues to progress, and patient nowwith mild uremic symptoms. More accelerated progression recently most likely mediated by disease process, but can't exclude renal hypoperfusion due to anti-hypertensive medications. We reviewed that if symptoms not significantly improved with cessation of ALIDA blockade, dialysis therapy would be indicated. As he hasn't undergone evaluation for home dialysis yet, in- center hemodialysis via a TDC would be needed. He would like to receive this care in [facility] as it is much closer for him. I have called [facility] to contact Dr. Franco regarding dialysis through his group, but have been instructed to discuss with Dr. 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 Hypertension - blood pressure improve, and now at goal < 130/80 with proteinuric CKD. Hyperkalemia - mild, and should improve with cessation of losartan, so will continue with aldactonefor now as still on high-dose furosemide. Hyperparathyroidism secondary to Chronic Kidney Disease - PTH is below goal 150- 650 with patient's CKD now progressing. Also with hyperphosphatemia. PLAN: 1. Discontinue losartan 2. Discontinue calcitriol 3. Review symptoms with patient Thursday am, and plan insertion of TDC and starting in-center HD if no significant improvement. 4. Awaiting return call from Dr. Urbano Loya regarding in-center and home dialysis in [facility]. 5. Return to clinic in 2 weeks if dialysis not started sooner. Que Lewis M.D. 01/12/2015 ADDENDUM: No change in symptoms. i did speak with Dr. Loya, and he arranged for insertion of TDC and starting dialysis. Nephrology care now transitioned to [facility]. documented in this encounter Plan of Treatment Not on file documented as of this encounter Visit Diagnoses Diagnosis Chronic glomerulonephritis in diseases classified elsewhere- Primary Chronic glomerulonephritis with other specified pathological lesion in kidney in diseases classified elsewhere Chronic kidney disease, stage V ([facility]) Chronic kidney disease, Stage V Type II or unspecified type diabetes mellitus with renal manifestations, not stated as uncontrolled(250.40) Type II or unspecified type diabetes mellitus with renal manifestations, not stated as uncontrolled Secondary hyperparathyroidism (of renal origin) Unspecified essential hypertension Hyperpotassemia documented in this encounter Discontinued Medications Medication Sig Discontinue Reason Start Date End Da te losartan (COZAAR) 100 mg tablet Take 100 mg by mouth daily 01/04/2015 calcitRIOL (ROCALTROL) 0.25 mcg capsule Take 0.25 mcg by mouth daily 01/04/2015 documented as of this encounter Care Teams Mechanical Unit Repairer Relationship Specialty Start Date End Date Urbano Denis DO [address] [place] [address] PCP - General 09/27/14 documented as of this encounter
--- OUTSIDE RECORDS SUMMARY | 2024-02-14 11:13 | XMS_ITS | Encounter Summary ---
Author Organization [facility] Address [address] [place] [address] Care Team Providers Care Generation Engineer Name Role Phone Urbano Denis DO Primary Care Provider +1- [phone] Encounter Details Date Type Department Care Team (Late st Contact Info) Description 04/24/2021 Lab Requisition [facility] Pathology & Laboratory Medicine - [facility] [address] [place] [address] Outr Resulting Lab, Provider Social History Tobacco [...] Procedure Name Priority Date/Time Associated Diagnosis Comments PSA TOTAL, DIAGNOSTIC Routine 04/23/2021 11:45 EDT documented in this encounter Results * PSA TOTAL, DIAGNOSTIC (04/23/2021 11:45 EDT) PSA 2.2 0.0 - 6.5 ng/mL 04/24/2021 17:39 EDT [facility] Blood VENOUS BLOOD / Unknown 04/23/2021 11:45 EDT 04/24/2021 16:43 EDT Narrative [facility] - 04/24/2021 17:39 EDT NOTE: Serum PSA concentration should not be interpreted as absolute evidence for the presence or absence of malignant disease. Assayed on [employer] XPT using chemiluminescent technology.??Values obtained by using different assay methods cannot be used interchangeably. Provider Outr Resulting Lab CHEMISTRY & BLOOD GAS ORDERABLES [facility] [address] [place] [address] documented in this encounter Visit Diagnoses Not on filedocumented in this encounter Care Teams Generation Engineer Relationship Specialty Start Date End Date Urbano Denis DO [address] [place] [address] PCP - General 09/27/14 documented as of this encounter
--- OUTSIDE RECORDS SUMMARY | 2024-02-14 11:13 | XMS_ITS | Encounter Summary ---
Author Organization [facility] Address [address] [place] [address] Care Team Providers Care Sales Enablement Lead Name Role Phone Urbano Denis DO Primary Care Provider +1- [phone] Encounter Details Date Type Department Care Team (Late st Contact Info) Description 01/03/2015 Abstract [facility] Nephrology - [address] [place] [address] [place], [place] [address] Que Lewis MD [address] [place] [id number] Social History Tobacco Use Types Packs/Day Years [...] Procedure Name Priority Date/Time Associated Diagnosis Comments NEPHROLOGY PROFILE (INCLUDES BUN, CREATININE, CALCULATED GFR, ELECTROLYTES, CALCIUM, PHOSPHORUS, ALBUMIN) Routine 12/27/2014 PTH INTACT Routine 12/27/2014 HGB Routine 12/27/2014 documented in this encounter Results * HGB (12/27/2014) Hemoglobin, External 12.3 [facility] Blood specimen (specimen) 12/27/2014 Que Lewis MD HEMATOLOGY & PF4 O RDERABLES Performing Organization Address City/[facility]/ZIP Co de Phone Number [facility] * NEPHROLOGY PROFILE (INCLUDES BUN, CREATININE, CALCULATED GFR, ELECTROLYTES, CALCIUM, PHOSPHORUS, ALBUMIN) (12/27/2014) Phosphorus, External 5.3 [facility] Albumin, External 3.2 [facility] BUN, External 115 [facility] Chloride, External 104 [facility] Creatinine, External 5.4 [facility] Potassium, External 5.2 [facility] GFR, Calculated, External 10.68 [facility] Calculated Calcium, External [facility] Calcium, External 8.9 [facility] Sodium, External 141 [facility] CO2, External 26.6 [facility] Blood specimen (specimen) 12/27/2014 Que Lewis MD PACKAGES & DNA PRO BE ORDERABLES Performing Organization Address City/[facility]/ZIP Co de Phone Number [facility] * PTH INTACT (12/27/2014) PTH, External [facility] Blood specimen (specimen) 12/27/2014 Que Lewis MD CHEMISTRY & BLOOD GAS ORDERABLES [facility] documented in this encounter Visit Diagnoses Not on filedocumented in this encounter Care Teams Sales Enablement Lead Relationship Specialty Start Date End Date Ubrano Denis DO [address] [place] [address] PCP - General 09/27/14 documented as of this encounter
--- OUTSIDE RECORDS SUMMARY | 2024-02-14 11:13 | XMS_ITS | Encounter Summary ---
Author Organization [facility] Address [address] [place] [address] Care Team Providers Care Optomechanical Technician Name Role Phone Ubrano Denis DO Primary Care Provider +1- [phone] Reason for Visit * Reason Onset Date Comments Paperwork request 03/29/2015 Encounter Details Date Type Department Care Team (Late st Contact Info) Description 03/29/2015 Telephone [facility] Nephrology - [address] [id number] Arianna Richardson MD [address] [place] [address], [address] [place] [address] Paperwork request Social History Tobacco Use Types Packs/Day Years [...] No 10/16/2014 documented as of this encounter Miscellaneous Notes * Telephone Encounter - Brunilda Pinon - 03/29/2015 1547 EDT Called Ruchi - . Notes faxed. * Telephone Encounter - Brunilda Pinon - 03/29/2015 1543 EDT Caller reports that the note should go to the pt's Txp coordinator, Ruchi Valles, at [facility]. Provided phone number: [phone]. * Telephone Encounter - Brunilda Pinon - 03/29/2015 1535 EDT Faxed office note from Dr. Lewis on 01/04/15. LMOM asking pt to clarify the department or person at the [facility]. Also asked for a phone number or fax number. * Telephone Encounter - Brunilda Pinon - 03/29/2015 1116 EDT Caller wants to be sure that the pt's last visit note from Dr. Lewis have been sent to the pt's PCP and [facility]. documented in this encounter Plan of Treatment Not on file documented as of this encounter Visit Diagnoses Not on filedocumented in this encounter Care Teams Optomechanical Technician Relationship Specialty Start Date End Date rUbano Denis DO [address] [place] [address] PCP - General 09/27/14 documented as of this encounter
--- OUTSIDE RECORDS SUMMARY | 2024-02-14 11:13 | XMS_ITS | Encounter Summary ---
Author Organization [facility] Address [address] [place] [address] Care Team Providers Care Solar Electric Practitioner Name Role Phone Urbano Denis DO Primary Care Provider +1- [phone] Encounter Details Date Type Department Care Team (Late st Contact Info) Description 12/20/2019 Lab Requisition [facility] Pathology & Laboratory Medicine - [address] [address] Outr Resulting Lab, Provider Social History Tobacco [...] Date/Time Associated Diagnosis Comments TACROLIMUS (FK506) Routine 12/20/2019 7:25 EDT documented in this encounter Results * TACROLIMUS (FK506) (12/20/2019 7:25 EDT) Tacrolimus 11.8 See Note ng/mL 12/21/2019 13:29 EDT [facility] Comment: NOTE: Therapeutic range is dependent on the clinical situation. Assayed utilizing [facility] Chemiluminescent technology. ??Values obtained using different assay methods cannot be used interchangeably. Blood VENOUS BLOOD / Unknown 12/20/2019 7:25 EDT 12/20/2019 17:59 EDT Provider Outr Resulting Lab CHEMISTRY & BLOOD GAS ORDERABLES [facility] [address] [place] [address] documented in this encounter Visit Diagnoses Not on filedocumented in this encounter Care Teams Solar Electric Practitioner Relationship Specialty Start Date End Date Urbano Denis DO [address] [place], [place] [id number] PCP - General 09/27/14 documented as of this encounter
--- OUTSIDE RECORDS SUMMARY | 2024-02-14 11:13 | XMS_ITS | Encounter Summary ---
Author Organization [facility] Address [address] [place] [address] Care Team Providers Care National Sales Representative Name Role Phone Urbano Denis DO Primary Care Provider +1- [phone] Encounter Details Date Type Department Care Team (Late st Contact Info) Description 06/19/2023 Lab Requisition [facility] Pathology & Laboratory Medicine - [facility] [address] [place] [address] Outr Resulting Lab, Provider Social History Tobacco [...] Date/Time Associated Diagnosis Comments TACROLIMUS (FK506) Routine 06/19/2023 11 :55 EST documented in this encounter Results * TACROLIMUS (FK506) (06/19/2023 11:55 EST) Tacrolimus 9.5 See Note ng/mL 06/20/2023 12:46 EST [facility] Comment: NOTE: Tacrolimus Therapeutic Range: 3-12 ng/mL (The goal level is based on clinical context). Assayed utilizing [employer] Chemiluminescent technology. ??Values obtained using different assay methods cannot be used interchangeably. Blood VENOUS BLOOD / Unknown 06/19/2023 11:55 EST 06/19/2023 17:30 EST Provider Outr Resulting Lab CHEMISTRY & BLOOD GAS ORDERABLES Performing Organization Address City/State/[facility] Co de Phone Number [facility] [address] [place] [address] documented in this encounter Visit Diagnoses Not on filedocumented in this encounter Care Teams National Sales Representative Relationship Specialty Start Date End Date Urbano Denis DO [address] [place] [address] PCP - General 09/27/14 documented as of this encounter
--- OUTSIDE RECORDS SUMMARY | 2024-02-14 11:13 | XMS_ITS | Encounter Summary ---
Author Organization [facility] Address [address] [place] [address] Care Team Providers Care Product Lister Name Role Phone Urbano Denis DO Primary Care Provider +1- [phone] Encounter Details Date Type Department Care Team (Late st Contact Info) Description 01/10/2020 Lab Requisition [facility] Pathology & Laboratory Medicine - [address] [address] Outr Resulting Lab, Provider Social History Tobacco [...] Date/Time Associated Diagnosis Comments TACROLIMUS (FK506) Routine 01/10/2020 8:45 EDT documented in this encounter Results * TACROLIMUS (FK506) (01/10/2020 8:45 EDT) Tacrolimus 7.0 See Note ng/mL 01/11/2020 14:[address] [facility] Comment: NOTE: Therapeutic range is dependent on the clinical situation. Assayed utilizing [employer] Chemiluminescent technology. ??Values obtained using different assay methods cannot be used interchangeably. Blood VENOUS BLOOD / Unknown 01/10/2020 8:45 EDT 01/10/2020 17:09 EDT Provider Outr Resulting Lab CHEMISTRY & BLOOD GAS ORDERABLES [facility] [address] [place] [address] documented in this encounter Visit Diagnoses Not on filedocumented in this encounter Care Teams Product Lister Relationship Specialty Start Date End Date Urbano Denis DO [address] [place], [place] [id number] PCP - General 09/27/14 documented as of this encounter
--- OUTSIDE RECORDS SUMMARY | 2024-02-14 11:13 | XMS_ITS | Encounter Summary ---
Author Name [facility] Organization [facility] Address [address] [place] [address] Care Team Providers Care Glass Toughening Operator Name Role Phone CHARLEEN GONZALES Primary [...] PART A Aug 06, 2013 PART A [id number] ETHEL AKINS SR PATIENT MEDICARE (WNR) MEDICARE (M) PART B Aug 06, 2013 PART B [id number] ETHEL AKINS PATIENT Selected Encounter This section includes the information on record at [place] for the Encounter. Date/Time Encounter Type Encounter Description Reason Pro vider Source Sep 15, 2023 03:36 PM Outpatient Encounter TELEPHONE TRIAGE IHE Encounter Template Text not used by [facility] Encounter Notes: All associated encounter notes This section contains the clinical notes associated to the Encounter. Date/Time Encounter Note(s) Provider Source Sep 15, 2023 03:36 PM AUDIOLOGY NOTE: LOCAL TITLE: Audiology Note STANDARD TITLE: AUDIOLOGY NOTE DATE OF NOTE: SEP 15, 2023@15:36 ENTRY DATE: SEP 15, 2023@15:37:06 AUTHOR: KAREN GOLDSTEIN EXP COSIGNER: URGENCY: STATUS: COMPLETED Audiology Note Has ADDENDA Spoke with Veterans on the phone, he is currently NOT ENROLLED (CATEGORY 8g). Appointment on September 21 for Audio Fit has been canceled and [id number] has been mailed out to patient to update Health Benefits. Please hold STANTON until resolved. Veterans is aware if warranty period runs out, STANTON will be sent back. /melvin/ KAREN GOLDSTEIN Signed: 09/15/2023 15:40 Receipt Acknowledged By: 09/15/2023 16:44 /melvin/ JENNA PORTILLO Brazing Machine Setter 01/06/2024 ADDENDUM STATUS: COMPLETED STANTON warranty period closing- sending back to [facility] for credit /melvin/ JENNA PORTILLO Brazing Machine Setter Signed: 01/06/2024 16:21 [facility]
--- OUTSIDE RECORDS SUMMARY | 2024-02-14 11:13 | XMS_ITS | Encounter Summary ---
Author Organization [facility] Address [address] [place] [address] Care Team Providers Care Department Helper Name Role Phone Urbano Denis DO Primary Care Provider +1- [phone] Encounter Details Date Type Department Care Team (Late st Contact Info) Description 08/20/2023 Lab Requisition [facility] Pathology & Laboratory Medicine - [facility] [address] [place] [address] Outr Resulting Lab, Provider Social History Tobacco [...] Date/Time Associated Diagnosis Comments TACROLIMUS (FK506) Routine 08/20/2023 14 :56 EST PTH INTACT Routine 08/20/2023 14:56 EST documented in this encounter Results * PTH INTACT (08/20/2023 14:56 EST) Intact PTH 44 19 - 88 pg/mL 08/20/2023 22:26 EST [facility] Blood VENOUS BLOOD / Unknown 08/20/2023 14:56 EST 08/20/2023 21:23 EST Provider Outr Resulting Lab CHEMISTRY & BLOOD GAS ORDERABLES Performing Organization Address [facility] Co de Phone Number [facility] [address] [place] [address] * TACROLIMUS (FK506) (08/20/2023 14:56 EST) Tacrolimus 4.4 See Note ng/mL 08/21/2023 11:40 EST [facility] Comment: NOTE: Tacrolimus Therapeutic Range: 3-12 ng/mL (The goal level is based on clinical context). Assayed utilizing [employer] Chemiluminescent technology. ??Values obtained using different assay methods cannot be used interchangeably. Blood VENOUS BLOOD / Unknown 08/20/2023 14:56 EST 08/20/2023 21:23 EST Provider Outr Resulting Lab CHEMISTRY & BLOOD GAS ORDERABLES Performing Organization Address [facility] Co de Phone Number [facility] [address] [place] [address] documented in this encounter Visit Diagnoses Not on filedocumented in this encounter Care Teams Department Helper Relationship Specialty Start Date End Date Urbano Denis DO [address] [place], [place] [address] PCP - General 09/27/14 documented as of this encounter
--- OUTSIDE RECORDS SUMMARY | 2024-02-14 11:13 | XMS_ITS | Clinical Summary ---
Author Organization [facility] Address [address] [place] [address] Care Team Providers Care Supervisor Heavy Equipment Name Role Phone Urbano Denis DO Primary Care Provider +1- [phone] Allergies No known active allergies Medications Medication [...] kidney biopsy 2014 Cardiomyopathy due to hypertension ([facility]) Overview: echo 09/17: ef 40%, concentric LVH Hyperparathyroidism, secondary renal ([facility]) Overview: ICD10 Update Auto Replacement Type 2 diabetes mellitus wit h renal manifestations ([facility]) Overview: dx 2011, - retinopathy, - neuropathy ICD10 Update Auto Replacement Chronic kidney disease, stage V ([facility]) Surgical History Surgery Date Site/Laterality Comments KNEE ARTHROSCOPY Medical History Medical History Date Comments CVA (cerebral infarction) 2013 Cardiomyopathy due to hypertension ([facility]) echo 09/17: ef 40%, concentric LVH Dyslipidemia Secondary hyperparathyroidis m (of renal origin) Obesity (BMI 30-39.9) GERD (gastroesophageal reflux disease) Diabetes mellitus type 2, co ntrolled ([facility]) dx 2011, - retinopathy, - neuropathy ARIELLA (obstructive sleep apnea) Chronic kidney disease, stag e IV (severe) ([facility]) Social History Tobacco Use Types Packs/Day Years Used Date Smoking Tobacco: Unknown Alcohol Use Standard Drinks/Week Comments Not Asked 0 (1 standard drink = 0.6 oz pur e alcohol) Sex and Gender Information Value Date Recorded Sex Assigned at Not on file Gender Identity Not on file Sexual Orientation Not on file Obstetrics History Last Filed Vital Signs Vital Sign Reading [...] EDT Body Mass Index 31.7 10/16/20142051 EDT Plan of Treatment Health Maintenance Due Date Last Done Comments Hepatitis C Screen 1948 RSV Immunization ( o r 60+ Years) (1 - 1-dose 60+ series) 2008 Fall Risk Screening 2013 COVID-19 Vaccine (2022-24 season) 2023 Advance Directives For more information, please contact: [phone] * Full Code (Latest Code Status on [...] TIME OF CONSENT IN PPR Care Teams Supervisor Heavy Equipment Relationship Specialty Start Date End Date Urbano Denis DO [address] [place] [address] PCP - General 09/27/14
--- OUTSIDE RECORDS SUMMARY | 2024-02-14 11:13 | XMS_ITS | Encounter Summary ---
Author Organization [facility] Address [address] [place] [address] Care Team Providers Care Turkey Egg Gatherer Name Role Phone Urbano Denis DO Primary Care Provider +1- [phone] Reason for Visit * Reason Onset Date Comments Medications Refill 12/05/2014 Encounter Details Date Type Department Care Team (Late st Contact Info) Description 12/05/2014 Refill [facility] Transplant - [address] [place] [address] [place], [place] [id number] Que Lewis MD [address] [address] Medications Refill Social History Tobacco Use Types Packs/Day Years [...] breakfast and dinner 180 Tab 0 12/05/2014 documented in this encounter Plan of Treatment Not on file documented as of this encounter Visit Diagnoses Not on filedocumented in this encounter Discontinued Medications Medication Sig Discontinue Reason Start Date End Da te carvedilol (COREG) 12.5 mg tablet Take 1 Tab by mouth 2 times daily with breakfast and dinner Reorder 12/01/2014 12/05/2014 documented as of this encounter Care Teams Turkey Egg Gatherer Relationship Specialty Start Date End Date Urbano Denis DO [address] [place] [address] PCP - General 09/27/14 documented as of this encounter
--- OUTSIDE RECORDS SUMMARY | 2024-02-14 11:13 | XMS_ITS | Encounter Summary ---
Author Organization [facility] Address [address] [place] [address] Care Team Providers Care Ceramics Instructor Name Role Phone Urbano Denis DO Primary Care Provider +1- [phone] Encounter Details Date Type Department Care Team (Late st Contact Info) Description 09/10/2021 Lab Requisition [facility] Pathology & Laboratory Medicine - [facility] [address] [place] [address] Outr Resulting Lab, Provider Social History Tobacco [...] Associated Diagnosis Comments PHOSPHOROUS, URINE RANDOM Routine 09/10/2021 10:55 EST MAGNESIUM,URINE RANDOM Routine 09/10/2021 10:55 EST documented in this encounter Results * MAGNESIUM,URINE RANDOM (09/10/2021 10:55 EST) Magnesium, Urine 4.7 See Note mg/dL 09/12/2021 8:43 EST [facility] Comment: NOTE: Reference range has not been established for magnesium concentration in random urine specimens. Urine URINE SPECIMEN COLLECTION, CLEAN CATCH / Unknown 09/10/2021 10:55 EST 09/11/2021 16:49 EST Provider Outr Resulting Lab URINALYSIS O RDERABLES Performing Organization Address [facility] Co de Phone Number [facility] [address] [place] [address] * PHOSPHORUS, URINE RANDOM (09/10/2021 10:55 EST) Phosphorous, Urine 22.7 See Note mg/dL 09/12/2021 8:45 EST [facility] Comment: NOTE: Reference range has not been established for phosporous concentration in random urine specimens. Urine URINE SPECIMEN COLLECTION, CLEAN CATCH / Unknown 09/10/2021 10:55 EST 09/11/2021 16:49 EST Provider Outr Resulting Lab URINALYSIS O RDERABLES Performing Organization Address [facility] Co de Phone Number [facility] [address] [place] [address] documented in this encounter Visit Diagnoses Not on filedocumented in this encounter Care Teams Ceramics Instructor Relationship Specialty Start Date End Date Urbano Denis DO [address] [place] [address] PCP - General 09/27/14 documented as of this encounter
--- OUTSIDE RECORDS SUMMARY | 2024-02-14 11:13 | XMS_ITS | Encounter Summary ---
Author Organization [facility] Address [address] [place] [address] Care Team Providers Care Management Accountant Name Role Phone Urbano Denis DO Primary Care Provider +1- [phone] Encounter Details Date Type Department Care Team (Late st Contact Info) Description 03/26/2023 Lab Requisition [facility] Pathology & Laboratory Medicine - [facility] [address] [place] [address] Outr Resulting Lab, Provider Social History Tobacco [...] Associated Diagnosis Comments PHOSPHOROUS, URINE RANDOM Routine 03/26/2023 11:35 EDT MAGNESIUM,URINE RANDOM Routine 03/26/2023 11:35 EDT CALCIUM, URINE RANDOM Routine 03/26/2023 11:35 EDT documented in this encounter Results * CALCIUM, URINE RANDOM (03/26/2023 11:35 EDT) Calcium, Urine 15.5 See Note mg/dL 03/27/2023 9:44 EDT [facility] Comment: NOTE: Reference range has not been established for calcium concentration in random urine specimens. Urine URINE / Unknown 03/26/2023 1 1:35 EDT 03/26/2023 21:27 EDT Provider Outr Resulting Lab URINALYSIS O RDERABLES Performing Organization Address [facility] Co de Phone Number [facility] [address] [place] [address] * MAGNESIUM,URINE RANDOM (03/26/2023 11:35 EDT) Magnesium, Urine 5.8 See Note mg/dL 03/27/2023 9:37 EDT [facility] Comment: NOTE: Reference range has not been established for magnesium concentration in random urine specimens. Urine URINE / Unknown 03/26/2023 1 1:35 EDT 03/26/2023 21:27 EDT Provider Outr Resulting Lab URINALYSIS O RDERABLES Performing Organization Address City/[facility]/ZIP Co de Phone Number [facility] [address] [place] [address] * PHOSPHORUS, URINE RANDOM (03/26/2023 11:35 EDT) Phosphorous, Urine 29.4 See Note mg/dL 03/27/2023 9:36 EDT [facility] Comment: NOTE: Reference range has not been established for phosporous concentration in random urine specimens. Urine URINE / Unknown 03/26/2023 1 1:35 EDT 03/26/2023 21:27 EDT Provider Outr Resulting Lab URINALYSIS O RDERABLES Performing Organization Address City/State/[facility] Co de Phone Number [facility] [address] [place] [address] documented in this encounter Visit Diagnoses Not on filedocumented in this encounter Care Teams Management Accountant Relationship Specialty Start Date End Date Urbano Denis DO [address] [place] [address] PCP - General 09/27/14 documented as of this encounter
--- OUTSIDE RECORDS SUMMARY | 2024-02-14 11:13 | XMS_ITS | Encounter Summary ---
Author Organization [facility] Address [address] [place] [address] Care Team Providers Care Dental Lab Technician Name Role Phone Urbano Denis DO Primary Care Provider +1- [phone] Encounter Details Date Type Department Care Team (Late st Contact Info) Description 02/27/2021 Lab Requisition [facility] Pathology & Laboratory Medicine - [facility] [address] [place] [address] Outr Resulting Lab, Provider Social History Tobacco [...] Date/Time Associated Diagnosis Comments TACROLIMUS (FK506) Routine 02/26/2021 11 :30 EDT documented in this encounter Results * TACROLIMUS (FK506) (02/26/2021 11:30 EDT) Tacrolimus 12.9 See Note ng/mL 02/28/2021 12:[address] [facility] Comment: NOTE: Therapeutic range is dependent on the clinical situation. Assayed utilizing [employer] Chemiluminescent technology. ??Values obtained using different assay methods cannot be used interchangeably. Blood VENOUS BLOOD / Unknown 02/26/2021 11:30 EDT 02/27/2021 15:57 EDT Provider Outr Resulting Lab CHEMISTRY & BLOOD GAS ORDERABLES Performing Organization Address City/State/[facility] Co de Phone Number [facility] [address] [place] [address] documented in this encounter Visit Diagnoses Not on filedocumented in this encounter Care Teams Dental Lab Technician Relationship Specialty Start Date End Date Urbano Denis DO [address] [place] [address] PCP - General 09/27/14 documented as of this encounter
--- OUTSIDE RECORDS SUMMARY | 2024-02-14 11:13 | XMS_ITS | Encounter Summary ---
Author Organization [facility] Address [address] [place] [address] Care Team Providers Care Warehouser Name Role Phone Urbano Denis DO Primary Care Provider +1- [phone] Encounter Details Date Type Department Care Team (Late st Contact Info) Description 01/30/2022 Lab Requisition [facility] Pathology & Laboratory Medicine - [facility] [address] [place] [address] Outr Resulting Lab, Provider Social History Tobacco [...] Date/Time Associated Diagnosis Comments TACROLIMUS (FK506) Routine 01/30/2022 10 :49 EDT documented in this encounter Results * TACROLIMUS (FK506) (01/30/2022 10:49 EDT) Tacrolimus 13.4 See Note ng/mL 01/31/2022 13:56 EDT [facility] Comment: NOTE: Tacrolimus Therapeutic Range: 3-12 ng/mL (The goal level is based on clinical context). Assayed utilizing Stamped Chemiluminescent technology. ??Values obtained using different assay methods cannot be used interchangeably. Blood VENOUS BLOOD / Unknown 01/30/2022 10:49 EDT 01/30/2022 21:58 EDT Provider Outr Resulting Lab CHEMISTRY & BLOOD GAS ORDERABLES [facility] [address] [place] [address] documented in this encounter Visit Diagnoses Not on filedocumented in this encounter Care Teams Warehouser Relationship Specialty Start Date End Date Urbano Denis DO [address] [place] [address] PCP - General 09/27/14 documented as of this encounter
--- OUTSIDE RECORDS SUMMARY | 2024-02-14 11:13 | XMS_ITS | Encounter Summary ---
Author Organization [facility] Address [address] [place] [address] Care Team Providers Care Stencil Cutter Machine Name Role Phone Urbano Denis DO Primary Care Provider +1- [phone] Encounter Details Date Type Department Care Team (Latest Contact Info) Description 09/12/2015 7:20 EST - 09/12/2015 23:59 [facility] Hospital Encounter [address] [address] Unknown, Provider, Discharge Disposition: Home or Self Care Social History Tobacco Use Types Packs/Day Years [...] No 10/16/2014 documented as of this encounter Medications at Time of Discharge Medication Sig Dispensed Refills Start Date End Date amLODIPine (NORVASC) 10 mg tablet Take 10 mg by mouth daily calcium carbonate (TUMS) 200 mg calcium (500 mg) tablet,chewable Take 1 Tab by mouth 3 times daily with meals 11/10/2014 carvedilol (COREG) 12.5 mg tablet Take 1 Tab by mouth 2 times daily with breakfast and dinner 180 Tab 0 12/05/2014 CLOPIDOGREL BISULFATE (PLAVIX ORAL)Indications:RESTART OK'D BY DR MAR Take by mouth doxazosin (CARDURA) 8 mg tablet Take 1 Tab by mouth daily 90 Tab 3 11/10/2014 furosemide (LASIX) 40 mg tablet Take 3 Tabs by mouth 2 times daily 540 Tab 3 11/10/2014 hydrALAzine (APRESOLINE) 25 mg tablet Take 3 Tabs by mouth 2 times daily 540 Tab 3 11/23/2014 HYDROmorphone (DILAUDID) 2 mg tablet Take 1-2 Tabs by mouth every 6 hours as needed for Pain Daily Max: 16 mg 40 Tab 0 10/17/2014 magnesium oxide (MAG-OX) 400 mg tablet Take 400 mg by mouth daily omeprazole (PRILOSEC) 20 mg capsule Take 20 mg by mouth daily pravastatin (PRAVACHOL) 20 mg tablet Take 20 mg by mouth daily spironolactone (ALDACTONE) 25 mg tablet Take 1 Tab by mouth daily 90 Tab 3 11/23/2014 documented as of this encounter Discharge Disposition Disposition Code Departure Means Destination Home or Self Nursing Home documented in this encounter Plan of Treatment Not on file documented as of this encounter Visit Diagnoses Not on filedocumented in this encounter Care Teams Stencil Cutter Machine Relationship Specialty Start Date End Date Urbano Denis DO [address] [place] [address] PCP - General 09/27/14 documented as of this encounter
--- OUTSIDE RECORDS SUMMARY | 2024-02-14 11:13 | XMS_ITS | Encounter Summary ---
Author Organization [facility] Address [address] [place] [address] Care Team Providers Care Small Offset Printer Name Role Phone Urbano Denis DO Primary Care Provider +1- [phone] Reason for Visit * Reason Onset Date Comments Appointment Related 02/22/2015 Encounter Details Date Type Department Care Team (Late st Contact Info) Description 02/22/2015 Telephone [facility] Nephrology - [address] [id number] Arianna Richardson MD [address] [place] [address], [address] [place] [address] Appointment Related Social History Tobacco Use Types Packs/Day Years [...] * Telephone Encounter - Brunilda Pinon - 02/22/2015 1016 EDT Pt NOS appt with Dr. Richardson in [facility] on 02/21/15. LMOM for pt to call back to rescheduled. Letter sent 02/22/15 documented in this encounter Plan of Treatment Not on file documented as of this encounter Visit Diagnoses Not on filedocumented in this encounter Care Teams Small Offset Printer Relationship Specialty Start Date End Date Urbano Denis DO [address] [place] [address] PCP - General 09/27/14 documented as of this encounter
--- OUTSIDE RECORDS SUMMARY | 2024-02-14 11:13 | XMS_ITS | Encounter Summary ---
Author Organization [facility] Address [address] [place] [address] Care Team Providers Care Chemical Equipment Controller Name Role Phone Urbano Denis DO Primary Care Provider +1- [phone] Encounter Details Date Type Department Care Team (Late st Contact Info) Description 09/14/2022 Lab Requisition [facility] Pathology & Laboratory Medicine - [facility] [address] [place] [address] Outr Resulting Lab, Provider Social History Tobacco [...] Date/Time Associated Diagnosis Comments TACROLIMUS (FK506) Routine 09/14/2022 5:40 EDT documented in this encounter Results * TACROLIMUS (FK506) (09/14/2022 5:40 EDT) Tacrolimus 14.3 See Note ng/mL 09/16/2022 13:37 EDT [facility] Comment: NOTE: Tacrolimus Therapeutic Range: 3-12 ng/mL (The goal level is based on clinical context). Assayed utilizing [employer] Chemiluminescent technology. ??Values obtained using different assay methods cannot be used interchangeably. Blood VENOUS BLOOD / Unknown 09/14/2022 5:40 EDT 09/15/2022 16:46 EDT Provider Outr Resulting Lab CHEMISTRY & BLOOD GAS ORDERABLES [facility] [address] [place] [address] documented in this encounter Visit Diagnoses Not on filedocumented in this encounter Care Teams Chemical Equipment Controller Relationship Specialty Start Date End Date Urbano Densi DO [address] [place] [address] PCP - General 09/27/14 documented as of this encounter
--- OUTSIDE RECORDS SUMMARY | 2024-02-14 11:13 | XMS_ITS | Encounter Summary ---
Author Name [facility] Organization [facility] Address [address] [place] [address] Care Team Providers Care Bag Builder Name Role Phone CHARLEEN GONZALES Primary Care [...] PART A Aug 06, 2013 PART A [id number] ETHEL AKINS SR PATIENT MEDICARE (WNR) MEDICARE (M) PART B Aug 06, 2013 PART B [id number] ETHEL AKINS PATIENT Selected Encounter This section includes the information on record at [facility] for the Encounter. Date/Time Encounter Type Encounter Description Reason Provider Source Jul 30, 2023 11:00 AM HEARING AID EXAM BOTH EARS AUDIOLOGY ICD-10-CM H90.3 Sensorineural hearing loss, bilateral JENNA PORTILLO Encounter Template Text not used by [facility] Assessments - Encounter Diagnoses This section includes the primary and secondary diagnoses documented for the Encounter. Date/Time Primary/Secondary Diagnosis Diagnosis Name Provider Source Jul 30, 2023 10:58 AM PRIMARY Sensorineural hearing loss, bilateral LINDSEY,JENNA R [facility] Social History: Smoking Status (Most current) and Tobacco Use (All prior to encounter date) This section includes the most current, and the historical, smoking and tobacco- related health factors from the [facility] facility where the Encounter took place. Current Smoking Status This section includes the most current smoking, or tobacco-related health factor, from the [facility] facility where the Encounter took place. Date/Time Current Smoking Status Comment Facil ity Sep 03, 2022 11:00 AM [facility]-TOBACCO USE > 1 5 LESS THAN 30 YEARS [facility] Tobacco Use History This section includes a history of the smoking, or tobacco-related health factors, that were collected on or before the date of the Encounter. The data comes from the [facility] facility where the Encounter took place. Date/Time Smoking Status/Tobacco Use Comment F acility Sep 03, 2022 11:00 AM VA-TOBACCO USE > 1 5 LESS THAN 30 YEARS [facility] Sep 03, 2022 11:00 AM VA-TOBACCO USE ADVICE [facility] Sep 03, 2022 11:00 AM VA-TOBACCO USE [place] PATCHER NO [facility] Sep 03, 2022 11:00 AM VA-TOBACCO USE MED NO [facility] Sep 03, 2022 11:00 AM VA-TOBACCO USER SOME DAYS [facility] Encounter Notes: All associated encounter notes This section contains the clinical notes associated to the Encounter. Date/Time Encounter Note(s) Provider Source Jul 30, 2023 10:53 AM AUDIOLOGY NOTE: LOCAL TITLE: Audiology Note STANDARD TITLE: AUDIOLOGY NOTE DATE OF NOTE: JUL 30, 2023@10:53 ENTRY DATE: JUL 30, 2023@10:53:08 AUTHOR: JENNA PORTILLO EXP COSIGNER: URGENCY: STATUS: COMPLETED AUDIOLOGIC EVALUATION: REFERRED BY: Self : Aug AGE: 72 Date: JUL 30, 2023 10:53 REASON FOR EVALUATION: The patient is being seen in clinic today for an audiological evaluation. Diagnostic testing is being performed today for purposes of evaluating reported hearing loss. TINNITUS: Denied. DIZZINESS/VERTIGO: Denied. FAMILY HISTORY OF HEARING LOSS: father OTOLOGIC HISTORY: Patient denies any recent or chronic otitis media, otorrhea, otalgia or ear surgery. Head or otologic trauma/Skull fracture/TBI: Denied. He denied any significant changes to his medical health history. Please see below for full history. GENERAL MEDICAL HISTORY: Cancer: Denied. Diabetes: Yes. He is currently managing this condition with medication and another private provider. Hypertension: Denied. Yes. He is currently managing this condition with medication and another private provider. 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 Unremarkable. TYMPANOMETRY: Type A tympanograms- middle ear compliance, pressure and ear canal volume are within normal limits. IPSILATERAL ACOUSTIC REFLEX 1kHz: RIGHT: No Response LEFT: No Response RELIABILITY: Good. SYMMETRY: Symmetrical DEGREE AND TYPE OF HEARING LOSS: RIGHT: normal sloping to severe SNHL LEFT: normal sloping to mod/severe SNHL WORD DISCRIMINATION: NU-6 RIGHT: 100% at 75dB HL, SRT: 25dB LEFT: 96% at 75dB HL, SRT: 20dB AUDIOGRAM Audiogram is available in this patient's electronic medical record. To view the actual audiogram, click the Tools menu, and choose Rehab Medicine then Audiogram Display EDUCATION: Patient was counseled on the test results, benefits and limitations of amplification, and strategies to improve communication. RECOMMENDATIONS: is a candidate for binaural amplification. The patient is currently eligible for hearing aids which were selected at this appointment. Bilateral EMIs were taken without incident. Hearing Aid Assessment: Discussed hearing aid options and styles. Patient is interested in rechargeable YAJAIRA, new user. Informed of trial period. Patient was back and forth about which style he might prefer. Ordered: ORA GARCIA L90-R YAJAIRA/SlimTip, graphite, no phone connection PLAN: -Order -HAF -Hearing evaluation in 2-3 years or sooner if a sudden change is noted -f/u per request PROCEDURES COMPLETED: Otoscopy Tympanometry 81978 Acoustic Reflex Comprehensive Exam 30571 Air Conduction Threshold Testing Bone Conduction Threshold Testing Speech Cross Tie Cutter Threshold Testing Word Recognition Testing Hearing Aid Assessment Binaural 82948 --STATUS-- --DUE DATE-- --LAST DONE-- Suicide Screen RESOLVED 10/09/2023 10/08/2022 Frequency: Due every 1 year for all ages. Resolution: Last done - 10/08/2022@10:00 Mental Health Test: Haw[place]orne Suicide Severity Rating Scale (C-SSRS) 10/08/2022@10:00 scale: Ques1 - raw score: 2, transformed score: /es/ JENNA PORTILLO Supply Chain Logistics Manager Signed: 07/30/2023 13:[address] [facility]
--- OUTSIDE RECORDS SUMMARY | 2024-02-14 11:13 | XMS_ITS | Encounter Summary ---
Author Organization [facility] Address [address] [place] [address] Care Team Providers Care Sales And Service Specialist Name Role Phone Urbano Denis DO Primary Care Provider +1- [phone] Encounter Details Date Type Department Care Team (Late st Contact Info) Description 03/21/2020 Lab Requisition [facility] Pathology & Laboratory Medicine - [address] [address] Outr Resulting Lab, Provider Social History Tobacco [...] Date/Time Associated Diagnosis Comments TACROLIMUS (FK506) Routine 03/21/2020 14 :20 EDT documented in this encounter Results * TACROLIMUS (FK506) (03/21/2020 14:20 EDT) Tacrolimus 11.6 See Note ng/mL 03/22/2020 13:28 EDT [facility] Comment: NOTE: Therapeutic range is dependent on the clinical situation. Assayed utilizing ExtendEvent Chemiluminescent technology. ??Values obtained using different assay methods cannot be used interchangeably. Blood VENOUS BLOOD / Unknown 03/21/2020 14:20 EDT 03/21/2020 21:23 EDT Provider Outr Resulting Lab CHEMISTRY & BLOOD GAS ORDERABLES [facility] [address] [place] [address] documented in this encounter Visit Diagnoses Not on filedocumented in this encounter Care Teams Sales And Service Specialist Relationship Specialty Start Date End Date Urbano Denis DO [address] [place], [place] [id number] PCP - General 09/27/14 documented as of this encounter
--- OUTSIDE RECORDS SUMMARY | 2024-02-14 11:13 | XMS_ITS | Encounter Summary ---
Author Organization [facility] Address [address] [place] [address] Care Team Providers Care Managed Care Director Name Role Phone Urbano Denis DO Primary Care Provider +1- [phone] Encounter Details Date Type Department Care Team (Late st Contact Info) Description 09/10/[address] [facility] Pathology & Laboratory Medicine - [facility] [address] [place] [address] Outr Resulting Lab, Provider Social History Tobacco [...] Date/Time Associated Diagnosis Comments TACROLIMUS (FK506) Routine 09/10/2021 11 :25 EST documented in this encounter Results * TACROLIMUS (FK506) (09/10/2021 11:25 EST) Tacrolimus 12.1 See Note ng/mL 09/12/2021 13:59 EST [facility] Comment: NOTE: Therapeutic range is dependent on the clinical situation. Assayed utilizing HeatSync Chemiluminescent technology. ??Values obtained using different assay methods cannot be used interchangeably. Blood VENOUS BLOOD / Unknown 09/10/2021 11:25 EST 09/11/2021 16:49 EST Provider Outr Resulting Lab CHEMISTRY & BLOOD GAS ORDERABLES [facility] [address] [place] [address] documented in this encounter Visit Diagnoses Not on filedocumented in this encounter Care Teams Managed Care Director Relationship Specialty Start Date End Date Urbnao Denis DO [address] [place], [place] [id number] PCP - General 09/27/14 documented as of this encounter
--- OUTSIDE RECORDS SUMMARY | 2024-02-14 11:13 | XMS_ITS | Encounter Summary ---
Author Organization [facility] Address [address] [place] [address] Care Team Providers Care Hay Buckler Name Role Phone Urbano Denis DO Primary Care Provider +1- [phone] Encounter Details Date Type Department Care Team (Late st Contact Info) Description 09/12/2015 Results Only [facility] [phone] Que Momin, DO [address] [facility] ROCA[address] DALY [address] [place] [address] Social History Tobacco Use Types Packs/Day Years [...] Procedure Name Priority Date/Time Associated Diagnosis Comments SURGICAL PATHOLOGY Routine 09/12/2015 17 :27 EST documented in this encounter Results * SURGICAL PATHOLOGY (09/12/2015 17:27 EST) Pathology Report: SURGICAL PATHOLOGY REPORT Reports generated via electronic interface contain original data; however they are lacking the format of the original report. Caution should be taken when reading/interpret ing unformatted reports. Name: ? ETHEL AKINS ? Accession #: ? [id number] ? : ? 1950 (Age: 65) ??M ? Collect Date: ? 09/12/2015 ? Location: ? [facility] ? Receive Date: ? 09/12/2015 ? Provider: QUE MOMIN DO Copy to: URBANO DENIS DO ? Final Pathologic Diagnosis: COLON, DESCENDING POLYPS, BIOPSIES: - ??Fragments of tubular adenoma(s). Document reviewed and electronically signed by: ANGELINA ACOSTA MD Report ??Date: 09/13/2015 16:33 By the signature above, the attending physician certifies that he/she has personally conducted a gross and/or microscopic examination of the described specimens and rendered or confirmed the above diagnosis. Specimen(s) Received: Descending colon polyp x2 Clinical History: Screening; 2 polyps of questionable significance Gross Description: ? Received in formalin labelled with proper patient identification (initials T, S) and descending colon polyp are four pink-oro tissues (0.2 x 0.2 x 0.2 cm to 0.3 x 0.2 x 0.2 cm). Entirely submitted in 1 and 2. Halima Reyes 09/13/2015 8:20 AM End of Report [facility] 09/12/2015 17:2 7 EST 09/12/2015 17:27 EST Que Momin DO PATHOLOGY ORDER IGNACIO [facility] [address] [place] [address] documented in this encounter Visit Diagnoses Not on filedocumented in this encounter Care Teams Hay Buckler Relationship Specialty Start Date End Date Urbano Denis DO [address] [place] [address] PCP - General 09/27/14 documented as of this encounter
--- OUTSIDE RECORDS SUMMARY | 2024-02-14 11:13 | XMS_ITS | Encounter Summary ---
Author Organization [facility] Address [address] [place] [address] Care Team Providers Care High Tension Tester Name Role Phone Urbano Denis DO Primary Care Provider +1- [phone] Encounter Details Date Type Department Care Team (Late st Contact Info) Description 07/15/2023 Lab Requisition [facility] Pathology & Laboratory Medicine - [facility] [address] [place] [address] Outr Resulting Lab, Provider Social History Tobacco [...] Procedure Name Priority Date/Time Associated Diagnosis Comments T3 FREE Routine 07/15/2023 13:08 EST documented in this encounter Results * T3 FREE (07/15/2023 13:08 EST) T3, Free 3.9 2.8 - 5.3 pg/mL 07/15/2023 22:40 EST [facility] Blood VENOUS BLOOD / Unknown 07/15/2023 13:08 EST 07/15/2023 22:09 EST Provider Outr Resulting Lab CHEMISTRY & BLOOD GAS ORDERABLES [facility] [address] [place] [address] documented in this encounter Visit Diagnoses Not on filedocumented in this encounter Care Teams High Tension Tester Relationship Specialty Start Date End Date Urbano Denis DO [address] [place] [address] PCP - General 09/27/14 documented as of this encounter
--- OUTSIDE RECORDS SUMMARY | 2024-02-14 11:14 | XMS_ITS | Encounter Summary ---
Author Organization [facility] Address [address] [place] [address] Care Team Providers Care Occupational Medicine Physician Name Role Phone Adeel, Urbano Checo Primary Care Provider +1- [phone] Reason for Visit * Reason Onset Date Comments Other 09/28/2014 Encounter Details Date Type Department Care Team (Late st Contact Info) Description 09/28/2014 Telephone [facility] Nephrology - [address] [id number] Que Lewis MD [address] [address] Other Social History Tobacco Use Types Packs/Day Years Used Date Smoking Tobacco: Never Assessed Sex and Gender Information Value Date Recorded Sex Assigned at Not on file Gender Identity Not on file Sexual Orientation Not on file documented as of this encounter Miscellaneous Notes * Telephone Encounter - Ginny Flores RN - 10/05/2014 1647 EDT Results will be faxed to our clinic. * Telephone Encounter - Que Lewis MD - 10/05/2014 0994 EDT Please get results of lab tests (chemistry) done most recently (thursday) at [facility] * Telephone Encounter - Que Lewis MD - 09/28/2014 1129 EDT Always up for a good baffel * Telephone Encounter - Radha Judge, RN - 09/28/2014 0920 EDT Spoke with : records release faxed to [facility] Signed by verbal order. Pt and wifecalled to let us do this. DONE * Telephone Encounter - Ethel Persaud - 09/28/2014 0911 EDT Patient has given [facility] the ok to send his records to [facility]. However they need A request from us asking for them. FAX #[phone].. documented in this encounter Plan of Treatment Not on file documented as of this encounter Visit Diagnoses Not on filedocumented in this encounter Care Teams Occupational Medicine Physician Relationship Specialty Start Date End Date Urbano Denis DO [address] [place] [address] PCP - General 09/27/14 documented as of this encounter
--- OUTSIDE RECORDS SUMMARY | 2024-02-14 11:14 | XMS_ITS | Encounter Summary ---
Author [facility] [place] [address] Care Team Providers Care Mass Spec Name Role Phone PerrydebUrbano DO Primary Care Provider Encounter Details Date Type Department Care Team (Late st Contact Info) Description 11/17/2023 External Results [place] [phone] Social History Tobacco Use Types Packs/Day Years Used Date Smoking Tobacco: Light Smoker Cigars Smokeless Tobacco: Never Comments:cigars, one weekly Alcohol Use Standard Drinks/Week Comments No 0 (1 standard drink = 0.6 oz pur e alcohol) IPV Inpatient Questions Answer Date Recorded Does Anyone Try to Keep You From Having Contact with Others or Doing Things Outside Your Home? no 09/14/2022 Feels Threatened by Someone no 09/03 Feels Unsafe at Home or Work/School no 09/14/2022 Physical Signs of Abuse Present no 09/14/2022 Sex and Gender Information Value Date Recorded Sex Assigned at Not on file Gender Identity Not on file Sexual Orientation Not on file documented as of this encounter Plan of Treatment Upcoming Encounters Date Type Department Care Team (Late st Contact Info) Description 04/15/2024 10:00 AM EDT Hospital Encounter Non-Invasive [place] [phone] Arrived documented as of this encounter Goals Goal Patient Goal Type Associated Problems Recent Progress Patient-Stated? Author [facility] Medication Compliance and Understanding Patient Facing Action Plan On track( 017 10:41 AM EDT) No Selena Cisneros, [facility] Note: Patient Goal: Clear hepatitis C Timeframe to meet goal: within 12 weeks of therapy documented as of this encounter Procedures Procedure Name Priority Date/Time Associated Diagnosis Comments [facility]EL Routine 11/12/2023 5:01 PM EDT documented in this encounter Results * [facility] External Lab Panel (11/12/2023 5:01 PM EDT) Historical Provider POINT OF CARE BOBY T ORDERABLES documented in this encounter Visit Diagnoses Not on filedocumented in this encounter Care Teams Mass Spec Relationship Specialty Start Date End Date Urbano Jimenez DO [address] [place] [address] PCP - General Family Medicine 03/18/22 Ruchi Valles RN Nurse Clinic Transplant Surgery 07/30/15 documented as of this encounter
--- OUTSIDE RECORDS SUMMARY | 2024-02-14 11:14 | XMS_ITS | Encounter Summary ---
Author Organization [facility] [place] [address] Care Team Providers Care Ad Operations Specialist Name Role Phone PerrydebUrbano DO Primary Care Provider [phone] Encounter Details Date Type Department Care Team (Late st Contact Info) Description 08/28/2023 External Results [place] [phone] Social History Tobacco Use Types Packs/Day Years [...] AM EDT Hospital Encounter Non[place] [phone] Arrived documented as of this encounter Goals Goal Patient Goal Type Associated Problems Recent Progress Patient-Stated? Author [facility] Medication Compliance and Understanding Patient Facing Action Plan On track( 017 10:41 AM EDT) Selena Scott, [facility] Note: Patient Goal: Clear hepatitis C Timeframe to meet goal: within 12 weeks of therapy documented as of this encounter Procedures Procedure Name Priority Date/Time Associated Diagnosis Comments [facility] EXTERNAL LAB PANEL Routine 08/20/2023 1:05 PM EST documented in this encounter Results * [facility] External Lab Panel (08/20/2023 1:05 PM EST) Historical Provider POINT OF CARE BOBY T ORDERABLES documented in this encounter Visit Diagnoses Not on filedocumented in this encounter Care Teams Ad Operations Specialist Relationship Specialty Start Date End Date Urbano Jimenez DO [address] [place] [address] PCP - General Family Medicine 03/18/22 Ruchi Valles RN Nurse Clinic Transplant Surgery 07/30/15 documented as of this encounter
--- OUTSIDE RECORDS SUMMARY | 2024-02-14 11:14 | XMS_ITS | Encounter Summary ---
Author Organization [facility] Address [address] [place] [address] Care Team Providers Care Paster Operator Name Role Phone Adeel, Urbano Checo Primary Care Provider [phone] Reason for Visit * Reason Onset Date Comments Labs Only 10/12/2014 pt ptt Encounter Details Date Type Department Care Team (Late st Contact Info) Description 10/12/2014 Telephone [facility] Nephrology - [address] [id number] Radha Judge, RN [address] [place] [address] Labs Only (pt ptt) Social History Tobacco Use Types Packs/Day Years Used Date Smoking Tobacco: Never Assessed Sex and Gender Information Value Date Recorded Sex Assigned at Not on file Gender Identity Not on file Sexual Orientation Not on file documented as of this encounter Miscellaneous Notes * Telephone Encounter - Que Lewis MD - 10/13/2014 1104 EDT Awesome! * Telephone Encounter - Radha Judge RN - 10/12/2014 1618 EDT Pt/ptt Pt 9.9 INR 1.0 PTT 24.3 done 10/09/14. Routed to Dr. Lewis for review. DONE * Telephone Encounter - Radha Judge RN - 10/12/2014 1619 EDT ----- Message from Que Lewis MD sent at 10/12/2014 12:59 EDT ----- Any PT/INR results on this pateint yet? Just want to make sure they are done prior to biposy for Thursday. documented in this encounter Plan of Treatment Not on file documented as of this encounter Visit Diagnoses Not on filedocumented in this encounter Care Teams Paster Operator Relationship Specialty Start Date End Date Urbano Denis DO [address] [place] [address] PCP - General 09/27/14 documented as of this encounter
--- OUTSIDE RECORDS SUMMARY | 2024-02-14 11:14 | XMS_ITS | Encounter Summary ---
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) Social History Tobacco Use Types Packs/Day Years Used Date Smoking Tobacco: Never Assessed Sex and Gender Information Value Date Recorded Sex Assigned at Not on file Gender Identity Not on file Sexual Orientation Not on file documented as of this encounter Plan of Treatment Not on file documented as of this encounter Visit Diagnoses Diagnosis 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
--- OUTSIDE RECORDS SUMMARY | 2024-02-14 11:14 | XMS_ITS | Encounter Summary ---
Author Organization [facility] Address [facility] [place] [address] Care Team Providers Care Audio Visual Tech Name Role Phone Urbano Jimenez DO Primary Care Provider [phone] Encounter Details Date Type Department Care Team (Latest Contact Info) Description 09/16/2023 10:40 AM EDT Office Visit [place] [address] Tal Eagle MD [facility] [place] [address] Type 2 diabetes mellitus with complication, without long-term current use of insulin; PTDM (post-transplant diabetes mellitus); Other complication of kidney transplant; Hypertriglyceridemia; Aftercare following organ transplant; Dehydration; Calculus of bile duct without cholangitis or cholecystitis without obstruction Social History Tobacco Use Types Packs/Day Years Used Date Smoking Tobacco: Light Smoker Cigars Smokeless Tobacco: Never Comments:cigars, one weekly Alcohol Use Standard Drinks/Week Comments No 0 (1 standard drink = 0.6 oz pur e alcohol) [facility] Inpatient Questions Answer Date Recorded Does Anyone [...] Sign Reading Time Taken Comments Blood Pressure 124/68 09/16/2023 11:01 AM EDT Pulse 76 09/16/2023 11:01 AM EDT Temperature 36.7 ??C (98 ??F) 09/16/2023 11:01 AM EDT Respiratory Rate - - Oxygen Saturation 96% 09/16/2023 11:01 AM EDT Inhaled Oxygen Concentration - - Weight 107 kg (235 lb 12.8 oz) 09/16/2023 11:01 AM EDT Height - - Body Mass Index 32.89 10/22/2022 1:56 PM EDT documented in this encounter Progress Notes * Lana Kilpatrick MD - 09/16/2023 10:40 AM EDT Transplant Nephrology Clinic Follow up Note PATIENT: Cody Bolden : 1950 8 years post transplant PRESLEY: 09/16/2023 HPI: 73 y.o. 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 He was started saxagliptin 5 mg once a day 3 months ago by his PCP in setting of worsening blood glucose control No new allergies. No urinary changes. No LL swelling. Has a pacemaker and a watchman, no chest pain or SOB Has a CPAP for sleep apnea Weight gone up 235 lbs to 216 Sylwia last year he eats lots of junk food and does little physical activity Constipation unchanged. Patient admits to not drinking enough water and consuming lots of junk food. He denies abdominal pain, nausea or vomiting. 12 organ review of systems were neither + or - Changes made today: Started on Jardiance, Saxagliptin Dced; SGLT2 inhibitor indicated in post kidney transplant patients to control PTDM; if hgbA1C stays above 7% should opt instead to use once dailyLantus or long acting insulin Active Ambulatory Problems Diagnosis Date Noted Hypertension 09/03/2012 DJD (degenerative joint disease) 09/03/2012 Hematuria 09/03/2012 CGN (chronic glomerulonephritis) 10/16/2014 Hepatitis C virus infection 01/04/2015 Other complication of kidney transplant 11/12/2015 Enterococcal bacteremia 02/05/2016 Ureteral stricture 04/29/2016 Dehydration 05/13/2016 H/O kidney transplant 06/13/2016 Aftercare following organ transplant 06/13/2016 Type 2 diabetes mellitus with complication, without long-term current use of insulin 08/12/2016 CAH (chronic active hepatitis) 08/25/2016 Prophylactic immunotherapy 09/22/2016 intermission coordinator current use of 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 drug 09/22/2016 Vitamin D deficiency 09/20/2017 Debility 10/05/2017 Pain of right lower extremity 10/05/2017 Obesity (BMI 30.0-34.9) 11/10/2017 Hydronephrosis 06/16/2018 Atrial fibrillation with RVR - had flutter initially, then fib 01/31/2019 Left leg pain 05/30/2019 CAD (coronary artery disease) 11/24/2019 Herniated lumbar intervertebral disc 05/10/2020 Tobacco abuse counseling 10/08/2020 Postprandial RUQ pain 10/22/2021 Gall stones 10/22/2021 Tachy-skaina syndrome 01/30/2022 Pacemaker 01/31/2022 Aortic stenosis, mild 03/18/2022 Mitral regurgitation 03/18/2022 Atrial fibrillation 05/08/2022 Diverticulitis 09/14/2022 Resolved Ambulatory Problems Diagnosis Date Noted ESRD (end stage renal disease) 04/27/2015 Chronic kidney disease, stage V 05/29/2015 Renal failure 09/16/2015 RAY (acute kidney injury) 11/27/2015 Sepsis 06/22/2016 Weight increase 08/12/2016 Primary osteoarthritis of right knee 10/05/2017 S/P R TKA 11/25/17 Dr. Dale 11/25/2017 Past Medical History: Diagnosis Date Back pain Chronic pain Colon polyp CVA (cerebral vascular accident) Diabetes Gastroesophageal reflux GERD (gastroesophageal reflux disease) High blood pressure HTN (hypertension) Irregular heart beat Kidney failure Liver disease Microhematuria Stroke Type 2 diabetes mellitus Past Surgical History: Procedure Laterality Date JOINT REPLACEMENT new right knee PRG FLUOROSCOPY EXAM UP TO 1 HR PHY OR OT HLTH CARE PROV N/A 05/10/2020 FLUOROSCOPY (WRVU 0.17) performed by Joseph Ang MD at [facility] MAIN OR PRG DAVEY REAL TIME IMG 2D W PRB IMG ACQUIS I&R N/A 07/15/2022 TRANSESOPHAGEAL ECHOCARDIOGRAM (WRVU 2.55) performed by Ruchi Park MD at [facility] OR PRO ANASTOMOSIS, AV, ANY SITE Left 05/09/2015 AV FISTULA CREATION, DIRECT HEMODIALYSIS, ANY SITE, EG ASHWINI FISTULA UPPER EXTREMITY performed by Que Amaro MD at [facility] MAIN OR PRO ARTHROPLASTY KNEE CONDYLE & PLATEAU MEDIAL & LAT COMPARTMENTS Right 11/25/2017 TOTAL KNEE ARTHROPLASTY (WRVU 20.72) performed by Breezy Dale MD at [facility] OR PRO CYSTOURETHROSCOPY, URETER CATHETER Left 06/17/2018 CYSTO, RETROGRADE, URETEROPYELOGRAPHY (WRVU 2.37) [facility] Edinson Grider III[facility] LAMINEC/FACETECT/FORAMIN, LUMBAR 1 SEG N/A 05/10/2020 LAMINECTOMY, FACETECTOMY & FORAMINOTOMY,LUMBAR, ONE LEVEL (WRVU 15.37) performed by Joseph Ang MD at [facility] OR PRO LAMINOTOMY, LUMBAR DISK, 1 INTRSP N/A 05/10/2020 LAMINOTOMY, DECOMPRESSION, FORAMINOTOMY, LUMBAR (WRVU 13.18) performed by Joseph Ang MD at [facility] OR [facility] MICROSURG TECHNIQUES, REQ OPER MICROSCOPE N/A 05/10/2020 MICROSCOPE USE (WRVU 3.46) performed by Joseph Ang MD at [facility] OR PRO PERQ CLSR TCAT L ATR APNDGE W/ENDOCARDIAL IMPLNT N/A 05/08/2022 @PERQ TRANSCATH CLOSURE LEFT ATRIAL APPENDAGE W ENDOCARDIAL IMPLANT, INC RAD S&I (WRVU 14) performed by Tal Diana MD at [facility] CATH LABS PRO REIMPLANT URETER, SINGLE URETER Left 05/20/2016 @URETERONEOCYSTOSTOMY ANASTOMOSIS OF SINGLE URETER TO BLADDER performed by Santosh Arredondo MD at [facility] MAIN OR PRO REIMPLANT URETER, SINGLE URETER N/A 05/20/2016 @URETERONEOCYSTOSTOMY ANASTOMOSIS OF SINGLE URETER TO BLADDER performed by Que Amaro MD at [facility] MAIN OR PRO TRANSPLANT, PREP CADAVER RENAL GRAFT N/A 09/16/2015 @PREPARATION CADAVERIC RENAL ALLOGRAFT performed by Franko Larkin MD at [facility] MAIN OR PRO TRANSPLANTATION OF KIDNEY N/A 09/16/2015 @KIDNEY TRANSPLANT, WITHOUT RECIPIENT NEPHRECTOMY performed by Franko Larkin MD at [facility] MAIN OR TISSUE TRANSFER kidney US RENAL TRANSPLANT LEFT Left 01/31/2019 US Renal Transplant Left 01/31/2019 [facility] RAD ULTRASOUND US RENAL TRANSPLANT LEFT Left 02/07/2019 US Renal Transplant Left 02/07/2019 [facility] RAD ULTRASOUND Current Outpatient Medications: aspirin 81 mg chewable tablet, Take 81 mg by mouth daily., Disp: , Rfl: metoprolol succinate XL (Toprol-XL) 50 mg ER 24 hr tablet, Take 1.5 tablets by mouth 2 times daily., Disp: 270 tablet, Rfl: 1 tacrolimus (Prograf) 1 mg IR capsule, Take 1 capsule by mouth 2 times daily., Disp: 180 capsule, Rfl: 0 mycophenolate (Cellcept) 250 mg capsule, Take 1 capsule by mouth 2 times daily., Disp: 180 capsule,Rfl: 0 Magnesium Gluconate (Mag-G) 27 mg magnesium (500 mg) Tablet, Take 2 tablets by mouth every morning AND 1 tablet Daily at Noon AND 2 tablets every evening., Disp: 450 tablet, Rfl: 1 calciTRIoL (Rocaltrol) 0.5 mcg capsule, Take 1 capsule by mouth daily., Disp: 90 capsule, Rfl: 1 atorvastatin (Lipitor) 40 mg tablet, TAKE ONE TABLET BY MOUTH EVERY EVENING, Disp: 90 tablet, Rfl: 3 hydrALAZINE (Apresoline) 100 mg tablet, Take 1 tablet by mouth 2 times daily., Disp: 180 tablet, Rfl: 3 amLODIPine (Norvasc) 5 mg Tablet, Take 1 tablet by mouth daily. (Patient taking differently: Take 5mg by mouth nightly.), Disp: 90 tablet, Rfl: 3 ascorbic acid, Vitamin C, (Vitamin C) 500 mg Tablet, Take 1 tablet by mouth 3 times daily., Disp: 270 tablet, Rfl: 2 multivitamin with minerals and lutein Tablet, Take 2 tablets by mouth daily. (Patient taking differently: Take 1 tablet by mouth 2 times daily.), Disp: 180 tablet, Rfl: 2 glipiZIDE XL (Glucotrol XL) 10 mg Tablet Extended Rel 24 hr, Take 10 mg by mouth 2 times daily., Disp: , Rfl: nitroGLYcerin (NITROSTAT) 0.4 mg Tablet, Sublingual, Place 1 tablet under the tongue every 5 minutes as needed for Chest pain., Disp: 90 tablet, Rfl: 12 tamsulosin (FLOMAX) 0.4 mg Capsule, Take 0.4 mg by mouth daily., Disp: , Rfl: acetaminophen (TYLENOL) 500 mg Tablet, Take 1,000 mg by mouth every 8 hours as needed for Pain., Disp: , Rfl: levothyroxine (SYNTHROID) 137 mcg Tablet, Take 137 mcg by mouth daily., Disp: , Rfl: No Known Allergies Immunization History Administered Date(s) Administered Hepatitis B Unspecified Formulation 04/16/2015, 05/14/2015, 06/20/2015 Influenza (Fluzone HD) Trivalent High Dose 04/23/2016 Influenza PF, Split 06/04/2012, 05/26/2013, 04/07/2015, 08/03/2017 Influenza Quadrivalent, Preservative Free (6-35 Mos) 04/04/2015 Influenza Unspecified Formulation 04/24/2022 Moderna Covid-19 Monovalent 12Yr+ (Overedger 100mcg) 09/05/2020, 10/03/2020, 05/11/2021 Pfizer Covid-19 (Purple Cap) Vaccine (12yrs+) 04/24/2022 Pfizer Covid-19 Bivalent 12Yrs+ (Garcia Cap 30mcg) 04/24/2022, 12/22/2022 Pneumococcal Polysaccharide (Pneumovax 23) 06/20/2014, 04/11/2015, 10/03/2021 Td, adult 07/06/2000, 05/20/2011 Tdap Vaccine 05/20/2011, 09/30/2022 Zoster Vaccine, Live 08/30/2015 Healthcare maintenance for a transplant recipient: Immunizations (no live virus or modified bacterial vaccines) Prevnar 13 once in a lifetime Pneumovax 23 every 5 years Tdap every 10 years Annual flu shot Killed (Shingrix) SHINGLES VACCINES are now considered safe in Tx recipients RSV vaccine Annual PCP exam Annual CASEY and PSA for males over 40 Annual pap gyne for females (pap if cervix present; visual inspection if no cervix present) Annual mammogram for females over 40, younger than 40 if family hx positive Every 5 year colonoscopy after age 50 Monthly self skin exam, daily spf 50 sunblock, annual derm consult if hx of skin cancer Annual eye exam Semi annual dental evaluation with prophylactic antibiotics Cardiac stress test after age 50, every 3 years for diabetics, every 5 for non diabetics [place] kidney ultrasound looking for renal cell CA, every 5 years post transplant Bone density assessment every 9-12 years post transplant Annual fasting lipid profile Annual PTH-Vit D3 assessment until normalized Annual spot urine for creatinine, protein, calcium, phosphate, magnesium BP 124/68 (Patient Position: Sitting) Pulse 76 Temp 36.7 ??C (98 ??F) (Oral) Wt 107 kg (235 lb 12.8 oz) SpO2 96% BMI 32.89 kg/m?? Alert oriented not in distress Dry oral mucosa, no fasciculations GAEB Clear lungs Normal heart sounds Abdomen soft non tender non distended No LL swelling Lab Results Component Value Date WBC 8.9 10/10/2022 RBC 4.54 (L) 10/10/2022 HGB 13.8 10/10/2022 HCT 40.2 (L) 10/10/2022 MCV 88.5 10/10/2022 MCH 30.4 10/10/2022 MCHC 34.3 10/10/2022 PLATELET 275 10/10/2022 RDWCV 13.4 10/10/2022 Labs done at [facility] on 08/27/23 scanned into the media section Specific troublesome labs: 1)hgb A1C 6.7% 2)urine P/C 0.39 3)total bili 3.3 (known cholelithiasis) 4)glu random 190, tgd 171 indicated insulin insufficiency 5)elevated creatinine 1.6 mg/dL baseline 1.3 6)Na 144, tCO2 32 IMPRESSION/ RECOMMENDATIONS: Mr. Bolden is a 73 yr old gentleman w/ hx of kidney transplant who presents to clinic for his annual f/u after receiving A DDKTx 09/2015 and a hospital follow up for diverticulitis. He seems to have recovered without having to undergo an abdominal exploration. No voiced complaints, BMs normal. #Transplant Status #Proteinuria #Uncontrolled blood sugars -s/p donor kidney transplant 8 yr post transplant -Worsening kidney function with new onset proteinuria, Cr rising from 1.26 on last visit in October 2022 to 1.6 on most recent labs done on 08/27/2023, his blood sugars have been more difficukt to control and has been started on saxagliptin by his PCP -In setting of worsening kidney function, proteinuria, uncontrolled bood sugars, heart status and risk for stroke/CV event we started patient on Jardiance 10 mg daily as SGLT2 inhibitors have been shown superior for transplant patients with the above mentioned conditions. -DC Saxagliptin -Patient instructed to check his blood sugars daily an if his fasting BS drop to 110s-120s he may decrease his glipizide dose by half -Patient to check his A1Cin 3 months, if it's in the low 6 or high 5, he may DC glipizide -Patient educated about the potential side effects of SGLT2 inhibitors including UTIs, he has been instructed to be conscious of any dysuria and increase his water intake 1L higher than what he has been drinking recently -Patient instructed to avoid concentrated sugars including white bread, baked goods, cookies, cakes, white rice, pasta, yellow and white potatoes, noodles #Immunosuppression -Prograf 1 mg bid, Cellcept 250 mg bid #Electrolytes #Acid base status Na and HCO3 elevated suggesting dehydration of around 7% K wnl #PO4/Mg Magnesium gluconate [id number] TID #Lipid panel Elevated TG related most likely to his elevated blood sugars, pt does not drink beer Discussed with pt consequences of elevated TG and uncontrolled blood sugars #Erythrocytosis - cont' to observe No need of RAAS inhibition , continue hydration Close follow up #Hypertension: BP is stable; antihypertensives unchanged Amlodipine 5 QPM, hydralazine 100 mg bid, metop succinate 50 BID BP goal <130/80 Encourage to check BP at home - on Flomax #Hepatitis C -on Harvoni treatment -Viral load undetectable after treatment in June 2018 #CV disease, AF/Afib Followed by Dr. Brown S/p Joseph #Hyperbilirubinemia Known gall stones and hepatic steatosis with normal liver enzymes in past TB then 2.5 [id number] labs f/u 12 months Discussion with the patient and/or family concerned the following: ? Diagnostic results or recommended studies ? Prognosis; ? Risks and benefits of management; ? Instructions for management; ? Compliance with treatment; ? Risk factor reduction; ? Patient and family education. Total time 25 of 30 min in direct face to face primary counselor. This case was staffed with Tal Ayala Nephrology and HTN Fellow I reviewed all of the above findings and assessment of Dr. Kilpatrick edited the above note to reflect my assessment and examination and formulated the recommendations which accurately reflect mine. 25 of 30 min in direct face to face primary counselor. documented in this encounter Plan of Treatment Upcoming Encounters Date Type Department Care Team (Late st Contact Info) Description 04/15/2024 10:00 AM EDT Hospital Encounter Non-Invasive [place] [address] Arrived documented as of this encounter Goals Goal Patient Goal Type Associated Problems Recent Progress Patient-Stated? Author [facility] Home Medication Compliance and Understanding Patient Facing Action Plan On track( 017 10:41 AM EDT) No Selena Cisneros, [facility] Note: Patient Goal: Clear hepatitis C Timeframe to meet goal: within 12 weeks of therapy documented as of this encounter Visit Diagnoses Diagnosis Type 2 diabetes mellitus with complication, without long-term current use of insulin PTDM (post-transplant diabetes mellitus) Secondary diabetes mellitus without mention of complication, not stated as uncontrolled, or unspecified Other complication of kidney transplant Hypertriglyceridemia Pure hyperglyceridemia Aftercare following organ transplant Dehydration Calculus of bile duct without cholangitis or cholecystitis without obstruction Calculus of bile duct without mention of cholecystitis or obstruction documented in this encounter Care Teams Audio Visual Tech Relationship Specialty Start Date End Date Urbano Jimenez DO [address] [place] [address] PCP - General Family Medicine 03/18/22 Ruchi Valles RN Nurse Clinic Transplant Surgery 07/30/15 documented as of this encounter
--- OUTSIDE RECORDS SUMMARY | 2024-02-14 11:14 | XMS_ITS | Encounter Summary ---
Author Organization [facility] [place] [address] Care Team Providers Care Clerical Transcriber Name Role Phone PerrydebUrbano DO Primary Care Provider [phone] Encounter Details Date Type Department Care Team (Late st Contact Info) Description 08/31/2023 Telephone Cardiology at [address] [phone] Giovanna Hernandez, RN Social History Tobacco Use Types Packs/Day Years Used Date Smoking Tobacco: Light Smoker Cigars Smokeless Tobacco: Never Comments:cigars, one weekly Alcohol Use Standard Drinks/Week Comments No 0 (1 standard drink = 0.6 oz pur e alcohol) [facility] Inpatient Questions Answer Date Recorded Does Anyone [...] encounter Miscellaneous Notes * Telephone Encounter - Giovanna Hernandez RN - 08/31/2023 4:19 PM EST Pt's called and requested that Metoprolol succinate 75 mg BID be sent to the [facility] in [place], [place] and for the prescription to be Metoprolol Succinate 50 mg tabs one and one half tablets twice a day. stated in her vm left that they wanted 3 50 mg tabs daily to split one in half to make the dose. Will re-pend prescription to [facility] to please sign off and re-route this prescription to [facility] in [place] documented in this encounter Plan of Treatment Upcoming Encounters Date Type Department Care Team (Late st Contact Info) Description 04/15/2024 10:00 AM EDT Hospital Encounter Non[place] [address] Arrived documented as of this encounter Goals Goal Patient Goal Type Associated Problems Recent Progress Patient-Stated? Author DH Home Medication Compliance and Understanding Patient Facing Action Plan On track( 017 10:41 AM EDT) No Selena Cisneros, [facility] Note: Patient Goal: Clear hepatitis C Timeframe to meet goal: within 12 weeks of therapy documented as of this encounter Visit Diagnoses Not on filedocumented in this encounter Care Teams Clerical Transcriber Relationship Specialty Start Date End Date Urbano Jimenez DO [address] [place] [address] PCP - General Family Medicine 03/18/22 Ruchi Valles RN Nurse Clinic Transplant Surgery 07/30/15 documented as of this encounter
--- OUTSIDE RECORDS SUMMARY | 2024-02-14 11:14 | XMS_ITS | Encounter Summary ---
[place] [address] Care Team Providers Care Jacket Changer Name Role Phone Urbano Jimenez DO Primary Care Provider [phone] Encounter Details Date Type Department Care Team (Latest Contact Info) Description 10/18/2023 10:00 AM EDT - 10/18/2023 11:59 PM EDT Hospital Encounter Non-[place] [id number] Discharge Disposition: Home Social History Tobacco Use Types Packs/Day Years Used Date Smoking Tobacco: Light Smoker Cigars Smokeless Tobacco: Never Comments:cigars, one weekly Alcohol Use Standard Drinks/Week Comments No 0 (1 standard drink = 0.6 oz pur e alcohol) [facility] Inpatient Questions Answer Date Recorded Does Anyone [...] on file documented as of this encounter Medications at Time of Discharge Medication Sig Dispensed Refills Start Date End Date aspirin 81 mg chewable tablet Take 81 mg by mouth daily. empagliflozin (Jardiance) 10 mg tabletIndications:Type 2 diabetes mellitus with complication, without long-term current use of insulin Take 1 tablet by mouth daily. 90 tablet 3 09/16/2023 metoprolol succinate XL (Toprol-XL) 50 mg ER 24 hr tablet Take 1.5 tablets by mouth 2 times daily. 270 tablet 1 09/04/2023 tacrolimus (Prograf) 1 mg IR capsuleIndications:H/O kidney transplant Take 1 capsule by mouth 2 times daily. 180 capsule 08/13/2023 mycophenolate (Cellcept) 250 mg capsuleIndications:H/O kidney transplant Take 1 capsule by mouth 2 times daily. 180 capsule 08/13/2023 Magnesium Gluconate (Mag-G) 27 mg magnesium (500 mg) TabletIndications:H/O kidney transplant Take 2 tablets by mouth every morning AND 1 tablet Daily at Noon AND 2 tablets every evening. 450 tablet 1 06/05/2023 atorvastatin (Lipitor) 40 mg tabletIndications:Coron wali artery disease TAKE ONE TABLET BY MOUTH EVERY EVENING 90 tablet 3 02/11/2023 hydrALAZINE (Apresoline) 100 mg tabletIndications:H/O kidney transplant,Aftercare following organ transplant,Hypertension secondary to other renal disorders Take 1 tablet by mouth 2 times daily. 180 tablet 3 10/14/2022 amLODIPine (Norvasc) 5 mg Tablet Take 1 tablet by mouth daily. 90 tablet 3 02/02/2022 ascorbic acid, Vitamin C, (Vitamin C) 500 mg Tablet Take 1 tablet by mouth 3 times daily. 270 tablet 2 12/27/2020 multivitamin with minerals and lutein Tablet Take 2 tablets by mouth daily. 180 tablet 2 12/27/2020 glipiZIDE XL (Glucotrol XL) 10 mg Tablet Extended Rel 24 hr Take 10 mg by mouth 2 times daily. nitroGLYcerin (NITROSTAT) 0.4 mg Tablet, Sublingual Place 1 tablet under the tongue every 5 minutes as needed for Chest pain. 90 tablet 12 02/05/2019 tamsulosin (FLOMAX) 0.4 mg Capsule Take 0.4 mg by mouth daily. 01/18/2019 acetaminophen (TYLENOL) 500 mg Tablet Take 1,000 mg by mouth every 8 hours as needed for Pain. levothyroxine (SYNTHROID) 137 mcg Tablet Take 137 mcg by mouth daily. calciTRIoL (Rocaltrol) 0.5 mcg capsuleIndications:H/O kidney transplant,Other complication of kidney transplant Take 1 capsule by mouth daily. 90 capsule 1 05/26/2023 12/02/2023 documented as of this encounter Plan of Treatment Upcoming Encounters Date Type Department Care Team (Late st Contact Info) Description 04/15/2024 10:00 AM EDT Hospital Encounter Non-[place] [address] Arrived documented as of this encounter Goals Goal Patient Goal Type Associated Problems Recent Progress Patient-Stated? Author DH Home Medication Compliance and Understanding Patient Facing Action Plan On track( 017 10:41 AM EDT) Selena Scott, [facility] Note: Patient Goal: Clear hepatitis C Timeframe to meet goal: within 12 weeks of therapy documented as of this encounter Procedures Procedure Name Priority Date/Time Associated Diagnosis Comments PRO PM INTERROGATION REMOTE UP TO 90 DAYS Routine 09/02/2023 2:26 AM EST documented in this encounter Results * Cardiac Device Check - Remote (09/02/2023 2:26 AM EST) Anatomical Region Laterality Modality Other 09/02/2023 2:26 AM EST Nikolas Loving MD IMPLANTABLE CARDIAC DEVICE documented in this encounter Visit Diagnoses Not on filedocumented in this encounter Care Teams Jacket Changer Relationship Specialty Start Date End Date Urbano Jimenez DO [address] [place] [address] PCP - General Family Medicine 03/18/22 Ruchi Valles RN Nurse Clinic Transplant Surgery 07/30/15 documented as of this encounter
--- OUTSIDE RECORDS SUMMARY | 2024-02-14 11:14 | XMS_ITS | Encounter Summary ---
Author Organization [facility] [place] [address] Care Team Providers Care Video Tape Transferrer Name Role Phone Urbano Jimenez Ray KIRBY Primary Care Provider [phone] Encounter Details Date Type Department Care Team (Late st Contact Info) Description 09/23/2023 5:00 PM EDT Ancillary Procedure [place] [address] Tal Eagle MD [facility] [place] [address] Social History Tobacco Use Types Packs/Day Years [...] AM EDT Hospital Encounter Non-[place] [address] Arrived documented as of this encounter Goals Goal Patient Goal Type Associated Problems Recent Progress Patient-Stated? Author Home Medication Compliance and Understanding Patient Facing Action Plan On track( 017 10:41 AM EDT) Selena Scott, [facility] Note: Patient Goal: Clear hepatitis C Timeframe to meet goal: within 12 weeks of therapy documented as of this encounter Procedures Procedure Name Priority Date/Time Associated Diagnosis Comments FILM LIBRARY STORAGE ONLY CT ABDOMEN Routine 09/23/2023 4:58 PM EDT documented in this encounter Results * Film Library- Storage Only CT Abdomen (09/23/2023 4:58 PM EDT) Narrative [facility] - 09/23/2023 4:58 PM EDT This exam is auto-finalizing. It's purpose is for storage only. Tal Eagle MD IMG FILM LIBRARY ORDERABLES [place], [place] documented in this encounter Visit Diagnoses Not on filedocumented in this encounter Care Teams Video Tape Transferrer Relationship Specialty Start Date End Date Urbano Jimenez DO [address] [place] [address] PCP - General Family Medicine 03/18/22 Ruchi Valles RN Nurse Clinic Transplant Surgery 07/30/15 documented as of this encounter
--- OUTSIDE RECORDS SUMMARY | 2024-02-14 11:14 | XMS_ITS | Encounter Summary ---
[place] [address] Care Team Providers Care Mailing Section Clerk Name Role Phone Urbano Jimenez Ray KIRBY Primary Care Provider [phone] Encounter Details Date Type Department Care Team (Late st Contact Info) Description 09/02/2023 Telephone [place] [phone] Mara Kimble Social History Tobacco Use Types Packs/Day Years [...] AM EDT Hospital Encounter Non-Invasive [place] [phone] Arrived documented as of this encounter Goals Goal Patient Goal Type Associated Problems Recent Progress Patient-Stated? Author DH Home Medication Compliance and Understanding Patient Facing Action Plan On track( 017 10:41 AM EDT) Selena Scott, [facility] Note: Patient Goal: Clear hepatitis C Timeframe to meet goal: within 12 weeks of therapy documented as of this encounter Visit Diagnoses Not on filedocumented in this encounter Care Teams Mailing Section Clerk Relationship Specialty Start Date End Date Urbano Jimenez DO [address] [place] [address] PCP - General Family Medicine 03/18/22 Ruchi Valles RN Nurse Clinic Transplant Surgery 07/30/15 documented as of this encounter
--- OUTSIDE RECORDS SUMMARY | 2024-02-14 11:14 | XMS_ITS | Encounter Summary ---
Author Organization [facility] Address [address] [place] [address] Care Team Providers Care Credentialer Name Role Phone Urbano Denis DO Primary Care Provider [phone] Reason for Visit * Reason Onset Date Comments Appointment Related 11/21/2014 Encounter Details Date Type Department Care Team ([facility] st Contact Info) Description 11/21/2014 Telephone [facility] Nephrology - [address] [address] Que Perez MD [address] [address] Appointment Related Social History Tobacco Use Types [...] Miscellaneous Notes * Telephone Encounter - Que Perez MD - 11/22/2014 1717 EDT Yep, mailed note and biopsy report to patient last week. Will review with them tomorrow. * Telephone Encounter - Radha Judge, RN - 11/21/2014 1558 EDT Spoke with pt's : they are aware to come to appt tomorrow for follow up htn. They wanted to know if he had mailed out note, etc. If not, they can get a copy at appt. Pt and informs us that they have appt with transplant in [place] for December 21, they have family in [place]. fyi to dr perez. * Telephone Encounter - Sandra Umaña - 11/21/2014 1517 EDT Pt has appointment with Dr. Perez on 11/23, he'd like confirmation that this visit is needed. Pt wasn't certain that he needed a 2 wk follow up visit. Pt's also reports that they haven't yet received the patients office visit notes and bx report. documented in this encounter Plan of Treatment Not on file documented as of this encounter Visit Diagnoses Not on filedocumented in this encounter Care Teams Credentialer Relationship Specialty Start Date End Date Urbano Denis DO [address] [place] [address] PCP - General 09/27/14 documented as of this encounter
--- OUTSIDE RECORDS SUMMARY | 2024-02-14 11:14 | XMS_ITS | Encounter Summary ---
[place] [address] Care Team Providers Care Manager Grocery Name Role Phone Urbano Jimenez Ray KIRBY Primary Care Provider [phone] Encounter Details Date Type Department Care Team (Late st Contact Info) Description 11/09/2023 Telephone Solid [place] [address] Mara Kimble Social History Tobacco Use Types [...] AM EDT Hospital Encounter Non-Invasive [place] [address] Arrived documented as of this encounter Goals Goal Patient Goal Type Associated Problems Recent Progress Patient-Stated? Author DH Home Medication Compliance and Understanding Patient Facing Action Plan On track( 017 10:41 AM EDT) Selena Scott, [facility] Note: Patient Goal: Clear hepatitis C Timeframe to meet goal: within 12 weeks of therapy documented as of this encounter Visit Diagnoses Not on filedocumented in this encounter Care Teams Manager Grocery Relationship Specialty Start Date End Date Urbano Jimenez DO [address] [place] [address] PCP - General Family Medicine 03/18/22 Ruchi Valles RN Nurse Clinic Transplant Surgery 07/30/15 documented as of this encounter
--- OUTSIDE RECORDS SUMMARY | 2024-02-14 11:14 | XMS_ITS | Encounter Summary ---
Author Organization [facility] Address [address] [place] [address] Care Team Providers Care Merchandise Worker Name Role Phone AdeelUrbano Checo Primary Care Provider [phone] Encounter Details Date Type Department Care Team (Late st Contact Info) Description 10/11/2014 Abstract [facility] Nephrology - [address] [place], [place] [address] Que Lewis MD [address] [place] [address] Social History Tobacco Use Types Packs/Day [...] CALCULATED GFR, ELECTROLYTES, CALCIUM, PHOSPHORUS, ALBUMIN) Routine 10/09/2014 PTH INTACT Routine 10/09/2014 COMPLETE BLOOD COUNT Routine 10/09/2014 documented in this encounter Results * PTH INTACT (10/09/2014) PTH, External [facility] Blood specimen (specimen) 10/09/2014 Que Lewis MD CHEMISTRY & BLOOD GAS ORDERABLES Performing Organization Address City/[facility]/ZIP Co de Phone Number [facility] * HEMAGRAM (10/09/2014) HCT, External 40.6 [facility] MCH, External [facility] MCV, External [facility] MCHC, External [facility] Hemoglobin, External 13.4 [facility] WBC, External 7.86 [facility] RBC, External 4.60 [facility] PLT, External 371 [facility] RDW-CV, External [facility] Blood specimen (specimen) 10/09/2014 Que Lewis MD HEMATOLOGY & PF4 O RDERABLES Performing Organization Address [facility]/ZIP Co de Phone Number [facility] * NEPHROLOGY PROFILE (INCLUDES BUN, CREATININE, CALCULATED GFR, ELECTROLYTES, CALCIUM, PHOSPHORUS, ALBUMIN) (10/09/2014) Phosphorus, External 4.3 [facility] Albumin, External 2.7 [facility] BUN, External 57 [facility] Chloride, External 105 [facility] Creatinine, External 3.7 [facility] Potassium, External 4.4 [facility] GFR, Calculated, External 16.52 [facility] Calculated Calcium, External [facility] Calcium, External 8.9 [facility] Sodium, External 142 [facility] CO2, External 28.6 [facility] Blood specimen (specimen) 10/09/2014 Que Lewis MD PACKAGES & DNA PRO BE ORDERABLES [facility] documented in this encounter Visit Diagnoses Not on filedocumented in this encounter Care Teams Merchandise Worker Relationship Specialty Start Date End Date Urbano Denis DO [address] [place] [address] PCP - General 09/27/14 documented as of this encounter
--- OUTSIDE RECORDS SUMMARY | 2024-02-14 11:14 | XMS_ITS | Encounter Summary ---
Author Organization [facility] Address [address] [place] [address] Care Team Providers Care Supervisor Welding Equipment Repairer Name Role Phone Urbano Denis DO Primary Care Provider [phone] Encounter Details Date Type Department Care Team (Late st Contact Info) Description 10/03/2014 Abstract [facility] Nephrology - [address] [place] [address] [place], [place] [address] Que Lewis MD [address] [place] [phone] Social History Tobacco Use Types Packs/Day Years Used Date Smoking Tobacco: Never Assessed Sex and Gender Information Value Date Recorded Sex Assigned at Not on file Gender Identity Not on file Sexual Orientation Not on file documented as of this encounter Plan of Treatment Not on file documented as of this encounter Procedures Procedure Name Priority Date/Time Associated Diagnosis Comments URINALYSIS WITH MICROSCOPIC IF POSITIVE Routine 05/22/2014 PTH INTACT Routine 05/22/2014 PROTEIN, TOTAL, RANDOM, URINE Routine 05/22/2014 CREATININE, URINE RANDOM Routine 05/22/2014 COMPLETE BLOOD COUNT Routine 05/22/2014 PHOSPHORUS Routine 05/22/2014 HEMOGLOBIN A1C Routine 05/22/2014 ALBUMIN Routine 05/22/2014 BASIC METABOLIC PANEL (BMP) Routine 05/22/2014 documented in this encounter Results * TOTAL PROTEIN, URINE RANDOM (05/22/2014) Tot Prot,Ur Random, External 570 [facility] Total Protein, 24 Hour Calc, [facility] Urine specimen (specimen) 05/22/2014 Urbano Kessler Adeel DO URINALYSIS ORDERAB LES [facility] * CREATININE, URINE RANDOM (05/22/2014) Creatinine, Random U (UCRR), External 191 [facility] Urine specimen (specimen) 05/22/2014 Urbano Kessler Adeel DO URINALYSIS ORDERAB LES [facility] * URINALYSIS (05/22/2014) Color UA, External yellow [facility] Clarity UA, External hazy [facility] Glucose UA, [facility] Bilirubin UA, [facility] Ketones UA, [facility] Specific [place] UA, External 1.015 [facility] Blood UA, [facility] pH UA, External 5.0 [facility] Protein UA, External >=500 [facility] Urobilinogen UA, External normal [facility] Nitrite UA, [facility] Leukocyte Esterase UA, [facility] Urine specimen (specimen) 05/22/2014 Urbano Checo Adeel DO URINALYSIS ORDERAB LES [facility] * HEMAGRAM (05/22/2014) HCT, External 39.3 [facility] MCH, [facility] MCV, [facility] MCHC, External [facility] Hemoglobin, External 13.8 [facility] WBC, External 7.1 [facility] RBC, External 4.57 [facility] PLT, External 285 [facility] RDW-CV, External [facility] Blood specimen (specimen) 05/22/2014 Urbano Denis DO HEMATOLOGY & PF4 O RDERABLES [facility] * HEMOGLOBIN A1C (05/22/2014) Hemoglobin A1C, External 5.6 [facility] Est Avg Glucose, External 114 [facility] Blood specimen (specimen) 05/22/2014 Urbano Denis DO CHEMISTRY & BLOOD GAS ORDERABLES [facility] * PHOSPHORUS (05/22/2014) Phosphorus, External 3.7 [facility] Blood specimen (specimen) 05/22/2014 Urbano Denis DO CHEMISTRY & BLOOD GAS ORDERABLES [facility] * ALBUMIN (05/22/2014) Albumin, External 3.5 [facility] Blood specimen (specimen) 05/22/2014 Urbano Kessler Adeel DO CHEMISTRY & BLOOD GAS ORDERABLES [facility] * PTH INTACT (05/22/2014) PTH, External 153 [facility] Blood specimen (specimen) 05/22/2014 Urbano Denis DO CHEMISTRY & BLOOD GAS ORDERABLES [facility] * BASIC METABOLIC PANEL (05/22/2014) GFR, Calculated, External 20 [facility] Glucose, Serum, External 124 [facility] Calculated Calcium, External [facility] BUN, External 48 [facility] Calcium, External 9.0 [facility] Chloride, External 103 [facility] CO2, External 28 [facility] Creatinine, External 3.19 [facility] Fasting?, External [facility] Potassium, External 3.6 [facility] Sodium, External 144 [facility] Blood specimen (specimen) 05/22/2014 Urbano Denis DO CHEMISTRY & BLOOD GAS ORDERABLES [facility] documented in this encounter Visit Diagnoses Not on filedocumented in this encounter Historical Medications * This list may reflect changes made after this encounter. Medication Sig Dispensed Refills Start Date End Date omeprazole (PRILOSEC) 20 mg capsule Take 20 mg by mouth daily pravastatin (PRAVACHOL) 20 mg tablet Take 20 mg by mouth daily amLODIPine (NORVASC) 10 mg tablet Take 10 mg by mouth daily magnesium oxide (MAG-OX) 400 mg tablet Take 400 mg by mouth daily doxazosin (CARDURA) 2 mg tablet Take 6 mg by mouth daily 11/10/2014 losartan (COZAAR) 100 mg tablet Take 100 mg by mouth daily 01/04/2015 calcitRIOL (ROCALTROL) 0.25 mcg capsule Take 0.25 mcg by mouth daily 01/04/2015 carvedilol (COREG) 6.25 mg tablet Take 6.25 mg by mouth 2 times daily with breakfast and dinner 10/05/2014 clopidogrel (PLAVIX) 75 mg tablet Take 75 mg by mouth daily 10/17/2014 furosemide (LASIX) 20 mg tablet Take 20 mg by mouth 2 times daily 10/05/2014 hydrALAzine (APRESOLINE) 25 mg tablet Take 50 mg by mouth 2 times daily 11/23/2014 potassium chloride CR (KLOR-CON) 10 mEq tablet extended release Take 20 mEq by mouth daily 10/06/2014 added in this encounter Care Teams Supervisor Welding Equipment Repairer Relationship Specialty Start Date End Date Urbano Denis DO [address] [place] [address] PCP - General 09/27/14 documented as of this encounter
--- OUTSIDE RECORDS SUMMARY | 2024-02-14 11:14 | XMS_ITS | Encounter Summary ---
Author Organization [facility] Address [address] [place] [address] Care Team Providers Care Tungsten Refiner Name Role Phone Urbano Denis DO Primary Care Provider [phone] Reason for Visit * Reason Onset Date Comments Critical Value 10/09/2014 Encounter Details Date Type Department Care Team ([facility] st Contact Info) Description 10/09/2014 Telephone [facility] Nephrology - [address] [address] Que Lewis MD [address] [address] Critical Value Social History Tobacco Use Types Packs/Day Years Used Date Smoking Tobacco: Never Assessed Sex and Gender Information Value Date Recorded Sex Assigned at Not on file Gender Identity Not on file Sexual Orientation Not on file documented as of this encounter Miscellaneous Notes * Telephone Encounter - Radha Judge RN - 10/09/2014 1326 EDT Clinical Staff notified with Critical Results creatinine 3.7 pot 4.4 ulbumin 2.7 bun 57 Provider Notified: Dr. Que Lewis 10/09/14 @ 1320 CALLED FROM [facility] Treatment Plan: no changes per Dr. Lewis. Pt is set up for Biopsy 10/16/14 * Telephone Encounter - Sandra Umaña - 10/09/2014 1324 EDT error documented in this encounter Plan of Treatment Not on file documented as of this encounter Visit Diagnoses Not on filedocumented in this encounter Care Teams Tungsten Refiner Relationship Specialty Start Date End Date Urbano Denis DO [address] [place] [address] PCP - General 09/27/14 documented as of this encounter
--- OUTSIDE RECORDS SUMMARY | 2024-02-14 11:14 | XMS_ITS | Encounter Summary ---
Author Organization [facility] Address [facility] [place] [address] Care Team Providers Care Lapeler Name Role Phone Urbano Jimenez Ray KIRBY Primary Care Provider [phone] Reason for Visit * Reason Onset Date Comments Medication Refill 08/31/2023 Encounter Details Date Type Department Care Team (Late st Contact Info) Description 08/31/2023 Refill Cardiology at [address] [address] Mayco Haro PA [facility] [place] [address] Medication Refill Social History Tobacco Use Types Packs/Day Years Used Date Smoking Tobacco: Light Smoker Cigars Smokeless Tobacco: Never Comments:cigars, one weekly Alcohol Use Standard Drinks/Week Comments No 0 (1 standard drink = 0.6 oz pur e alcohol) [facility] Inpatient Questions Answer Date Recorded Does Anyone [...] as of this encounter Miscellaneous Notes * Addendum Note - Elizabeth Jeffrey RN - 09/04/2023 11:40 AM EST Addended by: ELIZABETH JEFFREY on: 09/04/2023 11:40 AM Modules accepted: Orders documented in this encounter Plan of Treatment Upcoming Encounters Date Type Department Care Team (Late st Contact Info) Description 04/15/2024 10:00 AM EDT Hospital Encounter Non-Invasive [place] [address] Arrived documented as of this encounter Goals Goal Patient Goal Type Associated Problems Recent Progress Patient-Stated? Author DH Home Medication Compliance and Understanding Patient Facing Action Plan On track( 017 10:41 AM EDT) Selena Scott, [facility] ED Note: Patient Goal: Clear hepatitis C Timeframe to meet goal: within 12 weeks of therapy documented as of this encounter Visit Diagnoses Not on filedocumented in this encounter Care Teams Lapeler Relationship Specialty Start Date End Date Urbano Jimenez DO [address] [place] [address] PCP - General Family Medicine 03/18/22 Ruchi Valles RN Nurse Clinic Transplant Surgery 07/30/15 documented as of this encounter
--- OUTSIDE RECORDS SUMMARY | 2024-02-14 11:14 | XMS_ITS | Encounter Summary ---
Author Organization [facility] Address [address] [place] [address] Care Team Providers Care Credit Relationship Manager Name Role Phone Urbano Denis DO Primary Care Provider [phone]- [phone] Encounter Details Date Type Department Care Team (Late st Contact Info) Description 11/10/2014 Orders Only [facility] Nephrology - [address] [address] Que Lewis MD [address] [place] [phone] Social History Tobacco Use Types Packs/Day [...] Dispensed Refills Start Date End Da te furosemide (LASIX) 40 mg tablet Take 3 Tabs by mouth 2 times daily 540 Tab 3 11/10/2014 doxazosin (CARDURA) 8 mg tablet Take 1 Tab by mouth daily 90 Tab 3 11/10/2014 documented in this encounter Plan of Treatment Not on file documented as of this encounter Visit Diagnoses Not on filedocumented in this encounter Discontinued Medications Medication Sig Discontinue Reason Start Date End Da te doxazosin (CARDURA) 8 mg tablet Take 1 Tab by mouth daily Reorder 11/10/2014 11/10/2014 furosemide (LASIX) 40 mg tablet Take 3 Tabs by mouth 2 times daily Reorder 11/10/2014 11/10/2014 documented as of this encounter Care Teams Credit Relationship Manager Relationship Specialty Start Date End Date Urbano Denis DO [address] [place] [address] PCP - General 09/27/14 documented as of this encounter
--- OUTSIDE RECORDS SUMMARY | 2024-02-14 11:14 | XMS_ITS | Encounter Summary ---
Author Organization [facility] [place] [address] Care Team Providers Care Design Engineer Products Name Role Phone Urbano Jimenez DO Primary Care Provider Encounter Details Date Type Department Care Team (Late st Contact Info) Description 10/01/2023 Notes Only [place] [address] Anabella Bright Social History Tobacco Use Types Packs/Day Years Used Date Smoking Tobacco: Light Smoker Cigars Smokeless Tobacco: Never Comments:cigars, one weekly Alcohol Use Standard Drinks/Week Comments No 0 (1 standard drink = 0.6 oz pur e alcohol) [facility] Inpatient Questions Answer Date Recorded Does Anyone [...] on file documented as of this encounter Progress Notes * Anabella Bright - 10/01/2023 3:43 PM EDT Transplant Coil Tester Note: Completed physician portion of [employer] MAP form, obtained signature from Dr. Eagle, and emailed form back to Mara. She will file the application on her own. Will remain available for support as needed. documented in this encounter Plan of Treatment Upcoming Encounters Date Type Department Care Team (Late st Contact Info) Description 04/15/2024 10:00 AM EDT Hospital Encounter Non-[place] [address] Arrived documented as of this encounter Goals Goal Patient Goal Type Associated Problems Recent Progress Patient-Stated? Author DH Home Medication Compliance and Understanding Patient Facing Action Plan On track( 017 10:41 AM EDT) No Selena Cisneros, [facility] Note: Patient Goal: Clear hepatitis C Timeframe to meet goal: within 12 weeks of therapy documented as of this encounter Visit Diagnoses Not on filedocumented in this encounter Care Teams Design Engineer Products Relationship Specialty Start Date End Date Urbano Jimenez DO [address] [place] [address] PCP - General Family Medicine 03/18/22 Ruchi Valles RN Nurse Clinic Transplant Surgery 07/30/15 documented as of this encounter
--- OUTSIDE RECORDS SUMMARY | 2024-02-14 11:14 | XMS_ITS | Encounter Summary ---
Author Organization [facility] Address [address] [place] [address] Care Team Providers Care Child Care Cook Name Role Phone Urbano Denis DO Primary Care Provider [phone]- [phone] Encounter Details Date Type Department Care Team (Late st Contact Info) Description 10/06/2014 Abstract [facility] Nephrology - [address] [place] [address] [place], [place] [address] Que Lewis MD [address] [place] [phone] Social History Tobacco Use Types Packs/Day Years Used Date Smoking Tobacco: Never Assessed Sex and Gender Information Value Date Recorded Sex Assigned at Not on file Gender Identity Not on file Sexual Orientation Not on file documented as of this encounter Plan of Treatment Not on file documented as of this encounter Procedures Procedure Name Priority Date/Time Associated Diagnosis Comments BASIC METABOLIC PANEL (BMP) Routine 10/02/2014 BASIC METABOLIC PANEL (BMP) Routine 09/22/2014 COMPLETE BLOOD COUNT Routine 09/21/2014 HIGH SENSITIVITY C-REACTIVE PROTEIN (CARDIOVASCULAR DISEASE) Routine 09/21/2014 MAGNESIUM Routine 09/21/2014 BASIC METABOLIC PANEL (BMP) Routine 09/21/2014 documented in this encounter Results * BASIC METABOLIC PANEL (10/02/2014) GFR, Calculated, External 18.85 [facility] Glucose, Serum, External 118 [facility] Calculated Calcium, External [facility] BUN, External 39 [facility] Calcium, External 8.7 [facility] Chloride, External 105 [facility] CO2, External 27.9 [facility] Creatinine, External 3.3 [facility] Fasting?, External [facility] Potassium, External 3.9 [facility] Sodium, External 141 [facility] Blood specimen (specimen) 10/02/2014 Urbano Denis DO CHEMISTRY & BLOOD GAS ORDERABLES [facility] * BASIC METABOLIC PANEL (09/22/2014) GFR, Calculated, External 19.53 [facility] Glucose, Serum, External 102 [facility] Calculated Calcium, External [facility] BUN, External 43 [facility] Calcium, External 8.8 [facility] Chloride, External 108 [facility] CO2, External 28.9 [facility] Creatinine, External 3.2 [facility] Fasting?, External [facility] Potassium, External 3.6 [facility] Sodium, External 146 [facility] Blood specimen (specimen) 09/22/2014 Tal Diallo MD CHEMISTRY & BLOOD GA S ORDERABLES [facility] * HEMAGRAM (09/21/2014) HCT, External 36.5 [facility] MCH, External [facility] MCV, External [facility] MCHC, External [facility] Hemoglobin, External 11.9 [facility] WBC, External 6.09 [facility] RBC, External 4.10 [facility] PLT, External 253 [facility] RDW-CV, External [facility] Blood specimen (specimen) 09/21/2014 Tal Diallo MD HEMATOLOGY & PF4 ORD ERABLES [facility] * C-REACTIVE PROTEIN HIGH SENSITIVITY (09/21/2014) Pathologist [facility] High Sensitivity CRP, External 0.39 [facility] Blood specimen (specimen) 09/21/2014 Tal Diallo MD CHEMISTRY & BLOOD GA S ORDERABLES Performing Organization Address City/[facility]/ZIP Co de Phone Number [facility] * MAGNESIUM (09/21/2014) Pathologist [facility] Magnesium, External 1.9 [facility] Blood specimen (specimen) 09/21/2014 Tal Diallo MD CHEMISTRY & BLOOD GA S ORDERABLES Performing Organization Address [facility]/ZIP Co de Phone Number [facility] * BASIC METABOLIC PANEL (09/21/2014) Pathologist [facility] GFR, Calculated, External 19.53 [facility] Glucose, Serum, External 96 [facility] Calculated Calcium, External [facility] BUN, External 39 [facility] Calcium, External 8.4 [facility] Chloride, External 108 [facility] CO2, External 29.1 [facility] Creatinine, External 3.2 [facility] Fasting?, External [facility] Potassium, External 3.3 [facility] Sodium, External 145 [facility] Blood specimen (specimen) 09/21/2014 Tal Diallo MD CHEMISTRY & BLOOD GA S ORDERABLES [facility] documented in this encounter Visit Diagnoses Not on filedocumented in this encounter Care Teams Child Care Cook Relationship Specialty Start Date End Date Urbano Denis DO [address] [place] [address] PCP - General 09/27/14 documented as of this encounter
--- OUTSIDE RECORDS SUMMARY | 2024-02-14 11:14 | XMS_ITS | Encounter Summary ---
Author Organization [facility] Address [address] [place] [address] Care Team Providers Care Filter Tip Catcher Name Role Phone Urbano Denis DO Primary Care Provider [phone]- [phone] Encounter Details Date Type Department Care Team (Late st Contact Info) Description 11/09/2014 Abstract [facility] Nephrology - [address] [place] [address] [place], [place] [address] Que Lewis MD [address] [place] [phone] Social History Tobacco Use Types Packs/Day [...] CALCULATED GFR, ELECTROLYTES, CALCIUM, PHOSPHORUS, ALBUMIN) Routine 11/08/2014 HGB Routine 11/08/2014 documented in this encounter Results * HGB (11/08/2014) Hemoglobin, External 12.3 [facility] Blood specimen (specimen) 11/08/2014 Que Lewis MD HEMATOLOGY & PF4 O RDERABLES Performing Organization Address City/[facility]/ZIP Co de Phone Number [facility] * NEPHROLOGY PROFILE (INCLUDES BUN, CREATININE, CALCULATED GFR, ELECTROLYTES, CALCIUM, PHOSPHORUS, ALBUMIN) (11/08/2014) Phosphorus, External 5.3 [facility] Albumin, External 3.9 [facility] BUN, External 82 [facility] Chloride, External 104 [facility] Creatinine, External 4.00 [facility] Potassium, External 4.2 [facility] GFR, Calculated, External 15 [facility] Calculated Calcium, External [facility] Calcium, External 9.0 [facility] Sodium, External 141 [facility] CO2, External 24.0 [facility] Blood specimen (specimen) 11/08/2014 Que Lewis MD PACKAGES & DNA PRO BE ORDERABLES [facility] documented in this encounter Visit Diagnoses Not on filedocumented in this encounter Care Teams Filter Tip Catcher Relationship Specialty Start Date End Date Urbano Denis DO [address] [place] [address] PCP - General 09/27/14 documented as of this encounter
--- OUTSIDE RECORDS SUMMARY | 2024-02-14 11:14 | XMS_ITS | Encounter Summary ---
[place] [address] Care Team Providers Care Aoc Airspace Control Officer Name Role Phone PerrydebUrbano DO Primary Care Provider [phone] Encounter Details Date Type Department Care Team (Latest Contact Info) Description 09/16/2023 Travel Social History Tobacco Use Types Packs/Day Years [...] AM EDT Hospital Encounter Non-In[place] [address] Arrived documented as of this encounter Goals Goal Patient Goal Type Associated Problems Recent Progress Patient-Stated? Author [facility] Medication Compliance and Understanding Patient Facing Action Plan On track( 017 10:41 AM EDT) No Selena Cisneros [facility] Note: Patient Goal: Clear hepatitis C Timeframe to meet goal: within 12 weeks of therapy documented as of this encounter Visit Diagnoses Not on filedocumented in this encounter Care Teams Aoc Airspace Control Officer Relationship Specialty Start Date End Date Urbano Jimenez DO [address] [place] [address] PCP - General Family Medicine 03/18/22 Ruchi Valles RN Nurse Clinic Transplant Surgery 07/30/15 documented as of this encounter
--- OUTSIDE RECORDS SUMMARY | 2024-02-14 11:14 | XMS_ITS | Encounter Summary ---
[place] [address] Care Team Providers Care Optical Brightener Maker Helper Name Role Phone Urbano Jimenez Ray KIRBY Primary Care Provider [phone] Encounter Details Date Type Department Care Team (Late st Contact Info) Description 11/09/2023 Telephone [place] [address] Mara Kimble Social History Tobacco [...] AM EDT Hospital Encounter Non-[place] [address] Arrived documented as of this encounter Goals Goal Patient Goal Type Associated Problems Recent Progress Patient-Stated? Author DH Home Medication Compliance and Understanding Patient Facing Action Plan On track( 017 10:41 AM EDT) Selena Scott, [facility] Note: Patient Goal: Clear hepatitis C Timeframe to meet goal: within 12 weeks of therapy documented as of this encounter Visit Diagnoses Not on filedocumented in this encounter Care Teams Optical Brightener Maker Helper Relationship Specialty Start Date End Date Urbano Jimenez DO [address] [place] [address] PCP - General Family Medicine 03/18/22 Ruchi Valles RN Nurse Clinic Transplant Surgery 07/30/15 documented as of this encounter
--- OUTSIDE RECORDS SUMMARY | 2024-02-14 11:14 | XMS_ITS | Encounter Summary ---
Author [facility] [place] [address] Care Team Providers Care Registered Occupational Therapist Name Role Phone Urbano Jimenez DO Primary Care Provider Encounter Details Date Type Department Care Team (Late st Contact Info) Description 10/01/2023 Telephone [place] [phone] Marisela Metcalf, RN Social History Tobacco Use Types Packs/Day Years Used Date Smoking Tobacco: Light Smoker Cigars Smokeless Tobacco: Never Comments:cigars, one weekly Alcohol Use Standard Drinks/Week Comments No 0 (1 standard drink = 0.6 oz pur e alcohol) [facility] Inpatient Questions Answer Date Recorded Does [...] encounter Miscellaneous Notes * Telephone Encounter - Marisela Metcalf RN - 10/01/2023 3:02 PM EDT Mara called in considered that Yash's abdomen is distended since discharge. She reports it's blown up like a balloon and she's not sure if it's air or fluid. His skin does not appear tight, when she tapped on it she said it sounded full not hollow. Yash reports no pain, he has a little tenderness on his left side, which is likely related to recovering from diverticulitis; the pain has not gotten worse, is improving. Mara says he is taking Augmentin, he has 4 days left. His abdomen is a little smaller than it was yesterday, but still much larger than normal. He has noswelling in his legs, no SOB. He has been peeing large amounts, but he's drinking a lot and they gave him a lot of IV fluid in the hospital. Yash reports that he has diarrhea. He's had 3 BM today. He has no gas. No issues with going to the bathroom. Overall he sounds like he is doing OK. I recommended they continue to monitor, since it is going down hopefully it was just related to theIV fluids he received and the diverticulitis. If his abdomen starts to swell more, if it becomes painful, or if he develops a fever he needs to go back to the hospital. Both Mara and Yash agree with this plan. They will call if anything changes. documented in this encounter Plan of Treatment Upcoming Encounters Date Type Department Care Team (Late st Contact Info) Description 04/15/2024 10:00 AM EDT Hospital Encounter Non[place] [address] Arrived documented as of this encounter Goals Goal Patient Goal Type Associated Problems Recent Progress Patient-Stated? Author DH Home Medication Compliance and Understanding Patient Facing Action Plan On track( 017 10:41 AM EDT) No Selena Cisneros [facility] Note: Patient Goal: Clear hepatitis C Timeframe to meet goal: within 12 weeks of therapy documented as of this encounter Visit Diagnoses Not on filedocumented in this encounter Care Teams Registered Occupational Therapist Relationship Specialty Start Date End Date Urbano Jimenez DO [address] [place] [address] PCP - General Family Medicine 03/18/22 Ruchi Valles RN Nurse Clinic Transplant Surgery 07/30/15 documented as of this encounter
--- OUTSIDE RECORDS SUMMARY | 2024-02-14 11:14 | XMS_ITS | Encounter Summary ---
Author Organization [facility] [place] [address] Care Team Providers Care Doll Eye Setter Name Role Phone PerrydebUrbano DO Primary Care Provider [phone] Reason for Visit * Reason Comments Medication Refill Encounter Details Date Type Department Care Team (Late st Contact Info) Description 12/02/2023 Refill Solid [place] [address] Gurdeep Boston APRN [facility] [place] [address] H/O kidney transplant; Other complication of kidney transplant Social History Tobacco Use Types Packs/Day Years Used Date Smoking Tobacco: Light Smoker Cigars Smokeless Tobacco: Never Comments:cigars, one weekly Alcohol Use Standard Drinks/Week Comments No 0 (1 standard drink = 0.6 oz pur e alcohol) [facility] Inpatient Questions Answer Date Recorded Does Anyone [...] AM EDT Hospital Encounter [place] [address] Arrived documented as of this encounter Goals Goal Patient Goal Type Associated Problems Recent Progress Patient-Stated? Author Home Medication Compliance and Understanding Patient Facing Action Plan On track( 017 10:41 AM EDT) Selena Scott, [facility] Note: Patient Goal: Clear hepatitis C Timeframe to meet goal: within 12 weeks of therapy documented as of this encounter Visit Diagnoses Diagnosis H/O kidney transplant Kidney replaced by transplant Other complication of kidney transplant documented in this encounter Care Teams Doll Eye Setter Relationship Specialty Start Date End Date Urbano Jimenez DO [address] [place] [address] [place] [address] PCP - General Family Medicine 03/18/22 Ruchi Valles RN Nurse Clinic Transplant Surgery 07/30/15 documented as of this encounter
--- OUTSIDE RECORDS SUMMARY | 2024-02-14 11:14 | XMS_ITS | Encounter Summary ---
Author Organization [facility] [place] [address] Care Team Providers Care Plumbing Instructor Name Role Phone Urbano Jimenez DO Primary Care Provider [phone] Encounter Details Date Type Department Care Team (Late st Contact Info) Description 01/06/2024 Telephone [place] [phone] Barbara Josue Social History Tobacco Use Types Packs/Day Years Used Date Smoking Tobacco: Light Smoker Cigars Smokeless Tobacco: Never Comments:cigars, one weekly Alcohol Use Standard Drinks/Week Comments No 0 (1 standard drink = 0.6 oz pur e alcohol) [facility] Inpatient Questions Answer Date Recorded Does Anyone [...] encounter Miscellaneous Notes * Telephone Encounter - Barbara Josue - 01/06/2024 2:25 PM EDT Yash's Mara called. His PCP prescribed a new medication Allopurinol 100 mg, takes 1/2 day. He also takes Metformin 2 times a day. He is very tired and has no energy. He's just off. She though Dr. Eagle going his contact hisP to share information about Yash. Would like a call back to discuss his medication. documented in this encounter Plan of Treatment Upcoming Encounters Date Type Department Care Team (Late st Contact Info) Description 04/15/2024 10:00 AM EDT Hospital Encounter [place] [address] Arrived documented as of this encounter Goals Goal Patient Goal Type Associated Problems Recent Progress Patient-Stated? Author DH Home Medication Compliance and Understanding Patient Facing Action Plan On track( 017 10:41 AM EDT) No Selena Cisneros, [facility] Note: Patient Goal: Clear hepatitis C Timeframe to meet goal: within 12 weeks of therapy documented as of this encounter Visit Diagnoses Not on filedocumented in this encounter Care Teams Plumbing Instructor Relationship Specialty Start Date End Date Urbano Jimenez DO [address] [place] [address] PCP - General Family Medicine 03/18/22 Ruchi Valles RN Nurse Clinic Transplant Surgery 07/30/15 documented as of this encounter
--- OUTSIDE RECORDS SUMMARY | 2024-02-14 11:14 | XMS_ITS | Encounter Summary ---
Author Organization [facility] Address [address] [place] [address] Care Team Providers Care Soccer Coach Name Role Phone Urbano Denis DO Primary Care Provider [phone] Reason for Visit * Reason Onset Date Comments Labs Only 10/18/2014 Encounter Details Date Type Department Care Team ([facility] st Contact Info) Description 10/18/[address] [facility] Nephrology - [facility] [address] [place], [place] [id number] Ginny Flores, RN [address] [place], [place] [id number] Labs Only Social History Tobacco Use Types Packs/Day Years [...] Telephone Encounter - Ginny Flores RN - 10/20/[address] Lewis spoke with patient * Telephone Encounter - Ginny Flores RN - 10/20/2014 1519 EDT Hemoglobin from 10/19 Was 12.1. notified. * Telephone Encounter - Brunilda Pinon - 10/19/2014 0954 EDT Caller reports that labs were not written correctly and when sent to [place], the labs were not able to be drawn. Caller reports that the pt needs the labs done today and the orders needs to be sent to [facility] in [place], fax number: [phone]. Please place new orders and fax over. Please confirm that this has been done. * Telephone Encounter - Que Lewis MD - 10/18/2014 1657 EDT He will stop clonidine * Telephone Encounter - Ginny Flores RN - 10/18/2014 1346 EDT Spoke with . When patient discharged yesterday was told to have labs drawn 10/23, however, Dr. Adams would like labs done this week. He will have them done tomorrow in [facility]. Saw Dr. Geller, websphere consultant, today who wanted patient to check with Dr. Lewis to make sure that he approves of patient being started on Clonidine 0.1 mg twice daily upon discharge. documented in this encounter Plan of Treatment Not on file documented as of this encounter Procedures Procedure Name Priority Date/Time Associated Diagnosis Comments COMPLETE BLOOD COUNT Routine 10/19/2014 documented in this encounter Results * HEMAGRAM (10/19/2014) HCT, External 37.1 [facility] MCH, External [facility] MCV, External [facility] MCHC, External [facility] Hemoglobin, External 12.1 [facility] WBC, External 8.78 [facility] RBC, External [facility] PLT, External 304 [facility] RDW-CV, External [facility] Blood specimen (specimen) 10/19/2014 Historical Provider HEMATOLOGY & PF4 ORDERABLES [facility] documented in this encounter Visit Diagnoses Diagnosis Chronic kidney disease, stage IV (severe) ([facility] Primary Chronic kidney disease, Stage IV (severe) documented in this encounter Care Teams Soccer Coach Relationship Specialty Start Date End Date Urbano Denis DO [address] [place] [address] PCP - General 09/27/14 documented as of this encounter
--- OUTSIDE RECORDS SUMMARY | 2024-02-14 11:14 | XMS_ITS | Encounter Summary ---
Author Organization [facility] Address [address] [place] [address] Care Team Providers Care Special Needs Nanny Name Role Phone Urbano Denis DO Primary Care Provider [phone]- [phone] Reason for Referral * Radiology Services (Routine/Next Available) - Closed Specialty Diagnoses / Procedures Referred By Humberto flor Referred To Contact Diagnoses Chronic kidney disease, stage IV (severe) ([facility]) Proteinuria Procedures RAD US GUIDANCE, BX, ASP, INJ, LOC Jennifer Bender MD [address] [place] [id number] Referral ID Status Reason Start Date Expiration Date Visits Re quested Visits Authorized [id number] Closed 10/06/2014 1 1 Reason for Visit * Reason Comments Chronic Kidney Disease * Consult (Routine) - Closed Specialty Diagnoses / Procedures Referred By Humberto flor Referred To Contact Diagnoses Chronic renal failure Urbano Denis DO [address] [place] [address] Osito Traylor MD [address] [facility], [address] [place] [address] Referral ID Status Reason Start Date Expiration Date Visits Re quested Visits Authorized [id number] Closed 1 1 Encounter Details Date Type Department Care Team (Late st Contact Info) Description 10/05/2014 9:00 EDT Office Visit [facility] [address] [address] Jennifer Bender MD [address] [id number] [place] [phone] Chronic kidney disease, stage IV (severe) ([facility]) (Primary Dx); Proteinuria; Secondary hyperparathyroidism (of renal origin); Diabetes mellitus type 2, controlled ([facility]) ([facility]) Social History Tobacco Use Types Packs/Day Years Used Date Smoking Tobacco: Never Assessed Sex and Gender Information Value Date Recorded Sex Assigned at Not on file Gender Identity Not on file Sexual Orientation Not on file documented as of this encounter Last Filed Vital Signs Vital Sign Reading Time Taken Comments Blood Pressure 155/82 10/05/2014 09 EDT Pulse 57 10/05/2014904 EDT Temperature - - Respiratory Rate - - Oxygen Saturation - - Inhaled Oxygen Concentration - - Weight 105.8 kg (233 lb 4 oz) 10/05/2014 09 ED T Height - - Body Mass Index - - documented in this encounter Patient Instructions * Patient Instructions* Jennifer Bender MD - 10/05/2014 9:34 EDT i will call you regarding stopping plavix and starting aldactone (spironolactone) Will call you to schedule kidney biopsy documented in this encounter Ordered Prescriptions Prescription Sig Dispensed Refills Start Date End Da te spironolactone (ALDACTONE) 25 mg tablet Take 1 Tab by mouth daily 30 Tab 5 10/06/2014 11/23/2014 documented in this encounter Progress Notes * Radha Judge RN - 10/06/2014 1040 EDT Pending. done * Jennifer Bender MD - 10/05/2014 1225 EDT [facility] Nephrology New Patient DATE OF SERVICE: 10/05/2014 NAME: Cody Bolden REASON FOR VISIT: Chronic Kidney Disease DATE OF : 1950 HISTORY OF PRESENT ILLNESS: 64 y.o. year old male who I am requested to see in consultation by Urbano Denis DO for Chronic Kidney Disease. History gathered from patient and review of medical records from visits with Dr. Loya ([facility] rope walker) and conversation with Dr. Denis. Chronic Kidney Disease was first noted in 2011, but likely present longer as i don't have records going backany further. It is of stage 4 severity with serum creatinine 1.5 in 05/17, 1.6 in 09/15, increasing to 1.7 in 12/16, 1.9 in 07/19, 2.8 in 04/18, 2.1 in 10/17, 3.2 in 05/19, 2.7 in 07/20, and 3.3 in 09/17, representing a decline in eGFR from 44 to 20 ml/min/1.73m2 over two years. It is in the context of diabetes (diagnosed 2011 with hga1c in 6-7% range, and patient reports he has had regular medical care and blood testing prior to that, so not likely diabetes was present longer) and hypertension whichwas reasonable well controlled up until 2011. It is associated with proteinuria of 2.5-4 g/g since at least June, and rare microscopic hematuria. Patient seen by Dr. Loya since 2012 and pro teinuric CKD was attributed to diabetic nephropathy. Patient comes for a second opinion today. Hospitalized at [facility] with volume overload and hypertension, responding to iv diuresis. Yesterday, his furosemide and carvedilol doses were increased. Has taken omeprazole for over ten years. Past Medical History Diagnosis Date ??? CVA (cerebral infarction) 2013 ??? Unspecified essential hypertension ??? Cardiomyopathy due to hypertension echo 09/17: ef 40%, concentric LVH ??? Dyslipidemia ??? Secondary hyperparathyroidism (of renal origin) ??? Obesity (BMI 30-39.9) ??? GERD (gastroesophageal reflux disease) ??? Diabetes mellitus type 2, controlled dx 2011, - retinopathy, - neuropathy ??? ARIELLA (obstructive sleep apnea) Past Surgical History Procedure Laterality Date ??? Knee arthroscopy Current Outpatient Prescriptions Medication Sig ??? amLODIPine (NORVASC) 10 mg tablet Take 10 mg by mouth daily ??? calcitRIOL (ROCALTROL) 0.25 mcg capsule Take 0.25 mcg by mouth daily ??? carvedilol (COREG) 12.5 mg tablet Take 12.5 mg by mouth 2 times daily with breakfast and dinner ??? clopidogrel (PLAVIX) 75 mg tablet Take 75 mg by mouth daily ??? doxazosin (CARDURA) 2 mg tablet Take 6 mg by mouth daily ??? furosemide (LASIX) 20 mg tablet Take 100 mg by mouth 2 times daily ??? hydrALAzine (APRESOLINE) 25 mg tablet Take 50 mg by mouth 2 times daily ??? losartan (COZAAR) 100 mg tablet Take 100 mg by mouth daily ??? magnesium oxide (MAG-OX) 400 mg tablet Take 400 mg by mouth daily ??? omeprazole (PRILOSEC) 20 mg capsule Take 20 mg by mouth daily ??? potassium chloride CR (KLOR-CON) 10 mEq tablet extended release Take 20 mEq by mouth daily ??? pravastatin (PRAVACHOL) 20 mg tablet Take 20 mg by mouth daily Allergies no known allergies SOCIAL HISTORY: rare smoker of cigars, no intravenous drug use, retired FAMILY HISTORY: no family history of kidney disease REVIEW OF SYSTEMS: Cardiovascular: No chest pain Constitutional: No fever Respiratory: No hemoptysis Skin: No rash Eyes: No visual change Genitourinary: No dysuria Gastrointestinal: No nausea Musculoskeletal: No inflammatory arthritis Neuro: no muscle jerks Mouth: No ulcers PHYSICAL EXAMINATION: Vital Signs: BP 155/82 Pulse 57 Wt 105.8 kg (233 lb 4 oz) Constitutional: No distress Mouth: No ulcers Cardiovascular: Heart regular; no abdominal bruit; edema present, JVP 4cm above sternal angle Skin:No rash Gastrointestinal: Abdomen soft, non-tender Eyes: Sclerae anicteric Respiratory: Clear to auscultation bilaterally Neuro: No asterixis STUDIES: 07/11/14: UPEP and SPEP without m-spike. Kidney ultrasound shows normal size kidneys with few cysts and no obstruction. Vascular lab renal ultrasound shows fairly normal flow rates in main renal arteries, though aorta was not visualized 09/17 echo: EF 40%, moderate concentric LVH 07/11/14: PTH 153, po4 3.7 Urinalysis today: sg 1.020, - blood, 4+ protein 09/20/14 k 3.3, co2 28, cr 3.4 IMPRESSION: Chronic kidney disease stage 4, proteinuric - Etiology of CKD is not clear. Has previously been attributed to diabetic nephropathy, but with just 2-3 years of diabetes and proteinuria present prior to diagnosis of diabetes, this is not likely. Hypertensive kidney disease typically would not manifest with this much proteinuria, and it does not sound blood pressure was uncontrolled until just past couple of years. We dicsussed at length today that kidney biopsy is indicated to determine the etiology of his kidney disease. However, disease is quite advanced at this stage, no matter what the etiology, and that there is a very good chance that disease specific treatment would not be effective due to advanced disease. We discussed risks of kidney biopsy, mainly bleeding, and the need to hold anti-platelet agents 7 days prior and 3 days after procedure, and the need to get BP < 150/90 priorto the procedure to reduce this risk. Patient expressed understanding and agrees to proceed. Hypertension - blood pressure not at goal < 130/80 with proteinuric CKD. Remains volume expandedand i agree with recent increase in carvedilol and furosemide. Addition of spironolactone is likelyto be very effective as well, and if serum potassium is acceptable on most recent labs, would stop potassium supplement and start spironolactone 25mg daily. Hyperparathyroidism secondary to Chronic Kidney Disease - PTH is not measured since starting calcitriol. RECOMMENDATIONS: 1. Review labs from Thursday, and if potassium ok, will stop KCl and start spironolactone 25mg daily 2. Check hemagram, renal panel, PT/PTT, PTH next week. 3. Kidney biopsy, hopefully in ~ 2 weeks, once off plavix x 7 days and BP better controlled. 4. Return to clinic in 1 months to review kidney biopsy results. Jennifer Bender MD 10/06/2014 ADDENDUM: 10/02/14: k 3.9, co2 28, cr 3.3. OK to stop potassium chloride and start spironolactone 25mg daily. Discussed with patient via phone. documented in this encounter Miscellaneous Notes * Addendum Note - Jennifer Bender MD - 10/06/2014 0927 EDTAddended by: JENNIFER BENDER. on: 10/06/2014 09:27 Modules accepted: Orders, Medications, Level of Service documented in this encounter Plan of Treatment Not on file documented as of this encounter Procedures Procedure Name Priority Date/Time Associated Diagnosis Comments RAD US GUIDANCE, BX, ASP, INJ, LOC Routine 10/16/2014 11:39 EDT Chronic kidney disease, stage IV (severe) ([facility]) Proteinuria documented in this encounter Results * RAD US GUIDANCE, BX, ASP, INJ, LOC (10/16/2014 11:39 EDT) Anatomical Region Laterality Modality Other 10/16/2014 11:3 9 EDT 10/16/2014 17:03 EDT Narrative 10/16/2014 17:03 EDT RAD US GUIDANCE, BX, ASP, INJ, LOC ??10/16/2014 11:39 AM Signs and Symptoms/Comments: 585.4-Chronic kidney disease, stage IV (severe)-ICD-9-CM 791.3-Swwckzwgppb-RYZ-9-CM; ckd with nephrotic range proteinuria Comparison: None Description: Dr. Soni provided ultrasound guidance for core biopsies of lower pole lower [place] right kidney. Biopsy performed by nephrology service. Post biopsy ultrasound video images show no significant perinephric hemorrhage. Procedure Note Franko Soni MD - 10/16/2014 RAD US GUIDANCE, BX, ASP, INJ, LOC 10/16/2014 11:39 AM Signs and Symptoms/Comments: 585.4-Chronic kidney disease, stage IV (severe)-ICD-9-CM 791.3-Uyhbnecdefw-UMR-9-CM; ckd with nephrotic range proteinuria Comparison: None Description: Dr. Soni provided ultrasound guidance for core biopsies of lower pole [place] right kidney. Biopsy performed by nephrology service. Post biopsy ultrasound video images show no significant perinephric hemorrhage. Jennifer Bender MD IMG US ORDERABLES documented in this encounter Visit Diagnoses Diagnosis Chronic kidney disease, stage IV (severe) ([facility])- Primary Chronic kidney disease, Stage IV (severe) Proteinuria Secondary hyperparathyroidism (of renal origin) Diabetes mellitus type 2, controlled ([facility]) Type II or unspecified type diabetes mellitus without mention of complication, not stated as uncontrolled documented in this encounter Discontinued Medications Medication Sig Discontinue Reason Start Date End Da te carvedilol (COREG) 6.25 mg tablet Take 6.25 mg by mouth 2 times daily with breakfast and dinner 10/05/2014 furosemide (LASIX) 20 mg tablet Take 20 mg by mouth 2 times daily 10/05/2014 potassium chloride CR (KLOR-CON) 10 mEq tablet extended release Take 20 mEq by mouth daily 10/06/2014 documented as of this encounter Historical Medications * This list may reflect changes made after this encounter. Medication Sig Dispensed Refills Start Date End Date furosemide (LASIX) 20 mg tablet Take 80 mg by mouth 2 times daily 11/10/2014 carvedilol (COREG) 12.5 mg tablet Take 12.5 mg by mouth 2 times daily with breakfast and dinner 12/01/2014 added in this encounter Care Teams Special Needs Nanny Relationship Specialty Start Date End Date Urbano Denis DO [address] [place] [address] PCP - General 09/27/14 documented as of this encounter
--- OUTSIDE RECORDS SUMMARY | 2024-02-14 11:14 | XMS_ITS | Encounter Summary ---
Author Organization [facility] Address [address] [place] [address] Care Team Providers Care Letterer Name Role Phone Urbano Denis DO Primary Care Provider +1- [phone] Reason for Visit * Reason Onset Date Comments Appointment Related 10/06/2014 biopsy Encounter Details Date Type Department Care Team (Late st Contact Info) Description 10/06/2014 Telephone [facility] Nephrology - [address] [id number] Radha Judge, RN [address] [place] [address] Appointment Related (biopsy) Social History Tobacco Use Types Packs/Day Years Used Date Smoking Tobacco: Never Assessed Sex and Gender Information Value Date Recorded Sex Assigned at Not on file Gender Identity Not on file Sexual Orientation Not on file documented as of this encounter Miscellaneous Notes * Telephone Encounter - Radha Judge RN - 10/06/[address] Lewis re: Plavix. PENDING * Telephone Encounter - Que Lewis MD - 10/06/2014 1433 EDT Pt/ptt ordered for thursday * Telephone Encounter - Radha Judge RN - 10/06/2014 1348 EDT Biopsy scheduled for ThursdayOctober 27 at [address] Rich re: Pt Ptt and Plavix. PENDING documented in this encounter Plan of Treatment Not on file documented as of this encounter Visit Diagnoses Not on filedocumented in this encounter Care Teams Letterer Relationship Specialty Start Date End Date Urbano Denis DO [address] [place] [address] PCP - General 09/27/14 documented as of this encounter
--- OUTSIDE RECORDS SUMMARY | 2024-02-14 11:14 | XMS_ITS | Encounter Summary ---
Author Organization [facility] Address [address] [place] [address] Care Team Providers Care Distributor Sales Consultant Name Role Phone Urbano Denis DO Primary Care Provider +1- [phone] Reason for Visit * Reason Onset Date Comments Medication Management 10/25/2014 Biopsy Results 10/25/2014 Encounter Details Date Type Department Care Team ([facility] st Contact Info) Description 10/25/2014 Telephone [facility] Nephrology - [address] [phone] Que Lewis MD [address] [phone] Medication Management; Biopsy Results Social History Tobacco Use Types Packs/Day Years [...] Telephone Encounter - Que Lewis MD - 10/31/2014 1356 EDT Discussed results with patient * Telephone Encounter - Radha Judge RN - 10/26/2014 1039 EDT Med list updated appt 11/08/[address] Lewis. DONE * Telephone Encounter - Aubrey Willis MD - 10/25/2014 2110 EDT He can restart clopidigrel (Plavix) and follow-up with Dr Lewis in [place]. The biopsy is most consistent with diabetic nephropathy. He is already on maximal antiproteinuric therapy with losartan 100 and spironolactone 25. * Telephone Encounter - Ginny Flores RN - 10/25/2014 1752 EDT Notified that nothing different to do right now regarding groin tenderness since it has improved. May restart the Plavix. Dr. Lewis is on vacation this week and can review results when he returns. Contact us if pain worsens or he has questions/concerns. * Telephone Encounter - Ginny Flores RN - 10/25/2014 1747 EDT Groin area tender and sore, rated 3, however, improved since biopsy when pain was severe. No obvious bruising. Had bleeding after the biopsy which required admission. Has not restarted the Plavix-biopsy was 10/16. * Telephone Encounter - Brunilda Pinon - 10/25/2014 1617 EDT Pt would like to go over his biopsy results. Pt reports that his kidney area to groin is still sore and tender since the biopsy. Pt also has a question regarding his intake of Plavix. documented in this encounter Plan of Treatment Not on file documented as of this encounter Visit Diagnoses Not on filedocumented in this encounter Historical Medications * This list may reflect changes made after this encounter. Medication Sig Dispensed Refills Start Date End Date CLOPIDOGREL BISULFATE (PLAVIX ORAL)Indications:RESTART OK'D BY DR WILLIS Take by mouth added in this encounter Care Teams Distributor Sales Consultant Relationship Specialty Start Date End Date Urbano Denis DO [address] [place] [address] PCP - General 09/27/14 documented as of this encounter
--- OUTSIDE RECORDS SUMMARY | 2024-02-14 11:14 | XMS_ITS | Encounter Summary ---
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) Edinson Leary MD [address] [id number] Devon Zaman MD [address] [place] [phone] Referral ID Status Reason Start Date Expiration Date V isits Requested Visits Authorized [id number] Closed Specialty Services Required 10/17/2014 1 1 Question Answer Reason for Request: post-procedure follow up Encounter Details Date Type Department Care Team (Latest Contact Info) Description 10/16/2014 8:34 EDT - 10/17/2014 15:13 EDT Hospital Encounter [facility] General Surgery Unit [address], [place] [id number] Devon Zaman MD [address] [place] [phone] Cardiomyopathy due to hypertension ([facility]) (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) Discharge Disposition: Home or Self Care Social [...] Sign Reading Time Taken Comments Blood Pressure 153/81 10/17/2014 0834 EDT Pulse 53 10/17/2014 0834 EDT Temperature 36 ??C (96.8 ??F) 10/17/2014 0528 EDT Respiratory Rate 16 10/17/2014527 EDT Oxygen Saturation 92% 10/17/2014527 EDT Inhaled Oxygen Concentration - - Weight 99.8 kg (220 lb) 10/16/20142051 EDT Height 180.3 cm (5' 11) 10/16/20142051 EDT Body Mass Index 30.68 10/16/20142051 EDT documented in this encounter Functional Status [...] No 10/16/2014 documented as of this encounter Discharge Summaries * Devon Zaman MD - 10/17/2014 1317 EDT Discharge Summary Attending Physician: Devon Zaman MD Date of Admission: 10/16/2014 Date of Discharge: 10/17/2014 Disposition: Home or self-care Reason for Admission: Post-procedural bleeding Hospital Problems: Principal Problem: Retroperitoneal hematoma Active Problems: Cardiomyopathy due to hypertension Chronic kidney disease, stage IV (severe) 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 Imaging was concerning for post-procedural bleeding with retroperitoneal hematoma. His hemoglobin and hematocrit were stable overnight. Pt ambulated without trouble and was stable for discharge home on hospital day 2. Clinical Issues Needing Follow-up: Renal biopsy results Results Pending at Discharge: Test results still pending from this admission Procedure Component Value Units Date/Time Surgical Pathology [[id number]] Collected: 10/16/141127 Lab Status: In process Updated: 10/16/141127 Discharge Medications: START taking these medications Sig cloNIDine HCl 0.1 mg tablet Commonly known as: CATAPRES 0.1 mg, oral, 2 TIMES DAILY HYDROmorphone 2 mg tablet Commonly known as: DILAUDID 2-4 mg, oral, EVERY 6 HOURS PRN CONTINUE taking these medications Sig amLODIPine 10 mg tablet Commonly known as: NORVASC 10 mg, oral, DAILY calcitRIOL 0.25 mcg capsule Commonly known as: ROCALTROL 0.25 mcg, oral, DAILY carvedilol 12.5 mg tablet Commonly known as: COREG 12.5 mg, oral, 2 TIMES DAILY WITH BREAKFAST & DINNER doxazosin 2 mg tablet Commonly known as: CARDURA 6 mg, oral, DAILY furosemide 20 mg tablet Commonly known as: LASIX 100 mg, oral, 2 TIMES DAILY hydrALAzine 25 mg tablet Commonly known as: APRESOLINE 50 mg, oral, 2 TIMES DAILY losartan 100 mg tablet Commonly known as: COZAAR 100 mg, oral, DAILY magnesium oxide 400 mg tablet Commonly known as: MAG-OX 400 mg, oral, DAILY omeprazole 20 mg capsule Commonly known as: PRILOSEC 20 mg, oral, DAILY pravastatin 20 mg tablet Commonly known as: PRAVACHOL 20 mg, oral, DAILY spironolactone 25 mg tablet Commonly known as: ALDACTONE 25 mg, oral, DAILY STOP taking these medications clopidogrel 75 mg tablet Commonly known as: PLAVIX Allergies: Review of patient's allergies indicates no known allergies. Appointments Scheduled with [facility] in the Next 3 Months: These FA appointments have already been scheduled November 08, 2014 14:00 Established Patient Visit with Que [facility] Nephrology - [place] (--) [address] [facility] [address] Follow-Up Appointments and Procedures Recommended to Patient: Follow-up appointments and procedures Amb Consult/Follow Up Nephrology Reason for Request: post-procedure follow up Authorizing Provider: Edinson Leary MD Follow-Up Labs and Tests: Follow-up labs and tests Hemagram Complete by: Oct 23, 2014 Scheduling Instructions: Please call the Nephrology office after your blood draw. They will tell you when to restart your plavix. Authorizing Provider: Edinson Leary MD Additional Information: Please call the nephrology office with the results of your blood work. A copy will be sent to them.They will help you restart your plavix. CBC / hemagram -- October 23 Edinson Leary MD PGY-1 10/17/2014 14:32 Pager #[phone] I interviewed and examined the patient and confirmed the findings of Dr. Leary. The case was discussed with Dr. Adams and I agree with the assessment and plan. Devon Zaman MD 10/17/2014 20:05 documented in this encounter Discharge Instructions * Discharge Instructions* Karly Pettit CN - 10/16/2014 14:23 EDT [facility] Renal Biopsy Discharge Instructions Date: 10/16/14 Physician: Junie Physician Telephone number: [phone] Diet: You may resume your normal diet after the procedure. It is important for you to drink fluids as tolerated unless otherwise instructed by your physician. Activity: Have someone drive you home today. Do not operate a vehicle until tomorrow. Light activity for the rest of today, no strenuous exercise or heavy lifting (greater than 10 pounds) for two days. Discomfort: Do not take aspirin containing products, Ibuprofen, Advil, Motrin, Plavix, Vitamin E, Coumadin or blood thinning products for 24 hours after the procedure. You may take Tylenol (1-2 tablets every 4-6hours) for mild discomfort. Call physician for pain unrelieved by Tylenol for the first 24 hours following your procedure. Dressing: Check the dressing or Band-Aid throughout the day for any increase in drainage. Keep the Band-Aid or dressing dry for 24 hours. If you notice bleeding, apply pressure for 10 minutes and slowly release the pressure to see if the bleeding has stopped. If the bleeding does not stop, go to the nearest Emergency Room. You may remove the Band-Aid or dressing tomorrow. Other: It is normal to have blood in the urine after a kidney biopsy. Urine may be light cranberry color or darker, small clots may also be present. Urine should start to clear within two days. If your urine continues to contain blood after two days or blood increases in urine after discharge, or if you are feeling lightheaded, call physician immediately. If you have had a kidney transplant and notice excessive swelling in the new kidney/biopsy area or decreased urine output call the transplant clinic immediately. * Discharge Instr - Lab* Edinson Leary - 10/17/2014 13:53 EDT Please call the nephrology office with the results of your blood work. A copy will be sent to them.They will help you restart your plavix. documented in this encounter Medications at Time of Discharge Medication Sig Dispensed Refills Start Date End Date amLODIPine (NORVASC) 10 mg tablet Take 10 mg by mouth daily HYDROmorphone (DILAUDID) 2 mg tablet Take 1-2 Tabs by mouth every 6 hours as needed for Pain Daily Max: 16 mg 40 Tab 0 10/17/2014 magnesium oxide (MAG-OX) 400 mg tablet Take 400 mg by mouth daily omeprazole (PRILOSEC) 20 mg capsule Take 20 mg by mouth daily pravastatin (PRAVACHOL) 20 mg tablet Take 20 mg by mouth daily calcitRIOL (ROCALTROL) 0.25 mcg capsule Take 0.25 mcg by mouth daily 01/04/2015 carvedilol (COREG) 12.5 mg tablet Take 12.5 mg by mouth 2 times daily with breakfast and dinner 12/01/2014 cloNIDine HCl (CATAPRES) 0.1 mg tablet Take 1 Tab by mouth 2 times daily for 30 days 60 Tab 0 10/17/2014 11/08/2014 doxazosin (CARDURA) 2 mg tablet Take 6 mg by mouth daily 11/10/2014 furosemide (LASIX) 20 mg tablet Take 80 mg by mouth 2 times daily 11/10/2014 hydrALAzine (APRESOLINE) 25 mg tablet Take 50 mg by mouth 2 times daily 11/23/2014 losartan (COZAAR) 100 mg tablet Take 100 mg by mouth daily 01/04/2015 spironolactone (ALDACTONE) 25 mg tablet Take 1 Tab by mouth daily 30 Tab 5 10/06/2014 11/23/2014 documented as of this encounter Ordered Prescriptions Prescription Sig Dispensed Refills Start Date End Da te HYDROmorphone (DILAUDID) 2 mg tablet Take 1-2 Tabs by mouth every 6 hours as needed for Pain Daily Max: 16 mg 40 Tab 0 10/17/2014 cloNIDine HCl (CATAPRES) 0.1 mg tablet Take 1 Tab by mouth 2 times daily for 30 days 60 Tab 0 10/17/2014 11/08/2014 clopidogrel (PLAVIX) 75 mg tablet Take 1 Tab by mouth daily for 30 days 30 Tab 2 10/24/2014 10/17/2014 cloNIDine HCl (CATAPRES) 0.1 mg tablet Take 1 Tab by mouth 2 times daily for 30 days 60 Tab 0 10/17/2014 10/17/2014 documented in this encounter Discharge Disposition Disposition Code Departure Means Destination Home or Self Care documented in this encounter Progress Notes * Brandee Cardoza - 10/17/2014 1130 EDT Initial Case Management/Social Work Assessment and Discharge Plan /Readmission Risk Assessment Physician working diagnosis: kidney bx Patient (or designee) understanding of admission: understands Patient Contact Information: spouse as per facesheet MEDICAL AND COMMUNITY SERVICES: Primary Care Provider: [place] Denis DO Specialists seen on a consistent basis: Skilled home care services: DME Provider: Pharmacy: [facility] in [place] LIVING ARRANGEMENTS AND ACCESSIBILITY ISSUES: House Are there any home access issues? No What in home social supports are available to the patient? spouse ADVANCED DIRECTIVES, POA &/or COLST IN PLACE: No CULTURAL, YARSANISM and/or LANGUAGE factors affecting health care/discharge planning:: N/A FUNCTIONAL & PSYCHOSOCIAL INFORMATION: retired. resides with spouse in a one level home. two steps in. no dme. no services MEDICAL INSURANCE IN PLACE: Yes DISCHARGE RISK ASSESSMENT: None of the above risks identified Total # selected above: Score: Zero Tentative plan to address the risk of re-hospitalization for those at HIGH or MODERATE RISK: INITIAL TRANSITION PLAN: Transportation from hospital in place? Yes,spouse Post hospitalization Plan: Return to independent living New DME Requirements: No Initial plan discussed with: spouse Brandee Maresar 10/17/2014 11:30 * Salma Adams MD - 10/17/2014 0955 EDT Nephrology Progress Note Admit Date: 10/16/2014 Hospital Day: LOS: 1 day Date of Service: 10/17/2014 Reason for follow up: Post renal biopsy bleeding. Brief history: 64 year old male got admitted yesterday after a Rt [place] kidney biopsy due to a retroperitoneal bleed. His H/H dropped too and was hence kept under observation. Subjective: Currently asleep. I spoke to his who is at bedside. I saw him and examined later when he says that he has some abdominal and back discomfort but is much better than before. He was able to walk. His urine is not blood stained. Current Facility-Administered Medications Medication Route Frequency ??? amLODIPine (NORVASC) tablet 10 mg oral DAILY ??? calcitRIOL (ROCALTROL) capsule 0.25 mcg oral DAILY ??? carvedilol (COREG) tablet 12.5 mg oral BID (BREAKFAST/DINNER) ??? cloNIDine HCl (CATAPRES) tablet 0.1 mg oral BID ??? doxazosin (CARDURA) tablet 6 mg oral DAILY ??? furosemide (LASIX) tablet 100 mg oral BID ??? hydrALAzine (APRESOLINE) 20 mg in sodium chloride (NS) 0.9 % 50 mL IVPB intravenous Q4H PRN ??? hydrALAzine (APRESOLINE) tablet 50 mg oral BID ??? HYDROmorphone (DILAUDID) tablet 2-4 mg oral Q3H PRN Or ??? HYDROmorphone (PF) (DILAUDID) 1 mg/mL injection 0.2-0.6 mg intravenous Q4H PRN ??? losartan (COZAAR) tablet 100 mg oral DAILY ??? magnesium oxide (MAG-OX) tablet 400 mg oral DAILY ??? omeprazole (PRILOSEC) capsule 20 mg oral DAILY ??? ondansetron (PF) (ZOFRAN) injection 4 mg intravenous Q6H PRN ??? pravastatin (PRAVACHOL) tablet 20 mg oral DAILY ??? spironolactone (ALDACTONE) tablet 25 mg oral DAILY Review of Systems: A ten point review of systems was performed. Pertinent positives are listed below, all others are negative: As above Objective/Physical Exam: VS: Patient Vitals for the past 8 hrs: BP Pulse Resp Temp SpO2 O2 Device 10/17/14 0834 153/81 mmHg 53 - - - - 10/17/14 0528 154/76 mmHg - 16 36 ??C (96.8 ??F) 92 % Room air Pain: Patient Vitals for the past 8 hrs: Numeric Pain Level (Scale 1-10) Asleep 10/17/14 0935 0 Reassessed, sleeping comfortably, RR WNL. 10/17/14 0900 0 Reassessed, sleeping comfortably, RR WNL. 10/17/14 0835 4 - 10/17/14 0719 4 - 10/17/14 0627 0 Reassessed, sleeping comfortably, RR WNL. 10/17/14 0600 0 Reassessed, sleeping comfortably, RR WNL. 10/17/14 0528 4 - 10/17/14 0500 0 Reassessed, sleeping comfortably, RR WNL. 10/17/14 0400 0 Reassessed, sleeping comfortably, RR WNL. 10/17/14 0256 5 - 10/17/14 0255 5 - 10/17/14 0200 0 Reassessed, sleeping comfortably, RR WNL. Weight: @FLOW{14:LAST@ Glucose Readings (last 8 readings): No results found for this basename: GLUCOSEFINGE, in the last 72 hours I&O: Intake/Output Summary (Last 24 hours) at 10/17/14 0955 Last data filed at 10/17/14 0835 Gross per 24 hour Intake 960 ml Output 875 ml Net 85 ml Exam: General appearance: alert, cooperative, no distress, comfortable at rest Skin: Skin color, temperature, turgor normal. No rashes or lesions Head: Normocephalic, without obvious abnormality, atraumatic Throat/Mouth: lips, mucosa, and tongue normal; teeth and gums normal Neck: supple, symmetrical, trachea midline and no JVD Lungs: clear to auscultation bilaterally Heart: regular rate and rhythm, S1, S2 normal, no murmur, click, rub or gallop Abdomen: soft, tender in the Rt lower quadrant. Back: minimal Rt CVA tenderness; no Lt CVA tenderness Neurologic: Grossly normal Mental Status: awake and alert; oriented to person, place, and time Extremities: extremities warm, atraumatic, no cyanosis or edema Is PICC or Central line present? No, PICC/Central line not present. Data Review: I have independently visualized the Labs: CBC: Lab Results Component Value Date WBC 9.51 10/17/2014 RBC 3.65* 10/17/2014 HGB 11.1* 10/17/2014 HCT 31.5* 10/17/2014 MCV 86 10/17/2014 MCH 30.3 10/17/2014 MCHC 35.2 10/17/2014 PLT 272 10/17/2014 Other studies: Findings CT scan: Abdomen: Large Rt retroperitoneal bleed. I was also informed verbally about some radiolucent lesions in his iliac crest suspicious for myeloma or other malignancy. Problems: Patient Active Problem List Diagnosis Date Noted ??? 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 (H)Cardiomyopathy due to hypertension echo 09/17: ef 40%, concentric LVH ??? Secondary hyperparathyroidism (of renal origin) ??? Diabetes mellitus type 2, controlled dx 2011, - retinopathy, - neuropathy ??? (H)Chronic kidney disease, stage IV (severe) Assessment: - Rt retroperitoneal bleed post renal biopsy. Now has stable hemoglobin with improved pain. No hematuria. - CKD stage 4 of unclear etiology, came yesterday for an elective day case procedure Plan: - He could be discharged as his H/H was stable at 11gm/dL and his pain has improved. He does not have hematuria and lives with his . - We will check his H/H again in a couple of days after discharge. - He was advised to not start his Plavix until we (kidney doctors) allow him to do so. - He was advised to seek immediate medical help should he develop any new or worrying symptoms. - To be followed by Dr Lewis as per his schedule. He should have a follow up by his PCP to have further investigations of his bony lesions seen in CT incidentally. Salma Adams MD 10/17/2014 9:55 * Yanna Morse MD - 10/16/2014 1745 EDT I was notified about the Ct scan finding by Dr. Adams. I discussed the findings with director of radiology:Moderate size hematoma. On exam: pt is complaining of moderate to severe pain to his RT groin, worse with movement. Blood pressure 160/83, pulse 54, temperature 36.4 ??C (97.5 ??F), temperature source Tympanic, resp. rate 18, height 180.3 cm (71), weight 99.791 kg (220 lb), SpO2 95 %. Tenderness to RLQ and flank, abd : soft. A/P retroperitoneal hematoma: Hydromorphone and Zofran for pain and nausea. Observation Bed rest. No Aspirin or Plavix H/H Q6 hrs PT/INR Keep BP <140/90 ( may titrate Clonidine or Coreg) Hold Lasix, Losartan and Aldactone for now Urology consult. D/W Dr Fernandez and Dr. Leary D/W Lazaro D/W Dr. Zaman * Tamela Pa, RN - 10/16/2014 1551 EDT 1500 taking over care of pt at this time 1530 pt c/o intense pain to groin region. Unable to even sit up on stretcher without asst. drsg to right back reveals scant amt of blood show. Pt voided small amt approximately 30 cc at this time of clear yellow urine no blood. notified and stated that he is coming to [facility] to assess pt 1600 md here to assess pt. Ordered h/h to be drawn again. 1630 c/o pain to groin/ unable to sit up. drsg to right back reveal scant amt of bloody show/unchanged. hh result called to md. Waiting for return call back from fellow as was going to check with hisattending on next step [address] scan at this time [address] scan 1755 arabi here to see pt at this time. Decision to admit pt 1820 pain meds given for pain to groin 12/13. 1840 pt sleeping. No distress 1919 report given to agata on mendoza 3 1944 pt transferred via stretcher to [place] [facility] at this time. * Karly Pettit CNM - 10/16/2014 1153 EDT 1154-pt admitted to [facility] bed # 28 after kidney biopsy-dressing with dime size spot on right side-pt without c/o of pain-vs obtained 1230-no change in discharge from previous 1321-pt eating lunch 1455-labs drawn as ordered-iv dc'd * Karly Pettit CNM - 10/16/2014 0844 EDT 0845-pt admitted to [facility] bed # 28 for kidney biopsy-diagnosis code 585.4 and 581.9-identity and allergies verified-bp elevated-MD notified plavix stopped 10 days ago 09-catapres given to pt BP 159/83 0915-Dr Zaman in to see pt 1020-pt to procedure documented in this encounter H&P Notes * Edinson Leary - 10/16/2014 2152 EDT Admission H+P Admit Date: 10/16/2014 Date of Service: 10/16/2014 PCP: [place] Denis DO Chief Complaint: Post-procedural bleeding HPI: 64 y/o M with PMH of CKD4, cardiomyopathy, T2DM, ARIELLA (on CPAP), HLD, and HTN who presents for observation following right renal biopsy. Imaging with concern for post-procedural bleeding. At the time of interview patient only complains of pain in the right CVA and right groin. No other complaints. PMH PSH Past Medical History Diagnosis Date ??? CVA (cerebral infarction) 2013 ??? Cardiomyopathy due to hypertension echo 09/17: ef 40%, concentric LVH ??? Dyslipidemia ??? Secondary hyperparathyroidism (of renal origin) ??? Obesity (BMI 30-39.9) ??? GERD (gastroesophageal reflux disease) ??? Diabetes mellitus type 2, controlled dx 2011, - retinopathy, - neuropathy ??? ARIELLA (obstructive sleep apnea) ??? Chronic kidney disease, stage IV (severe) Past Surgical History Procedure Laterality Date ??? Knee arthroscopy Social History Family History History Substance Use Topics ??? Smoking status: Not on file ??? Smokeless tobacco: Not on file ??? Alcohol Use: Not on file No family history on file. Medications Prescriptions prior to admission Medication Sig Dispense Refill ??? amLODIPine (NORVASC) 10 mg tablet Take [...] Tab by mouth daily 30 Tab 5 Allergies No Known Allergies Review of Systems: Pertinent items are noted in Subjective/HPI Objective/Physical Exam: VS: Patient Vitals for the past 8 hrs: BP Pulse Heart Rate Resp Temp SpO2 10/16/14 2140 - - 53 BPM 18 - 95 % 10/16/142014 160/83 mmHg 54 - - 36.4 ??C (97.5 ??F) 97 % 10/16/14 1551 153/79 mmHg - - 16 - - 10/16/14 1451 151/68 mmHg - - 16 36.5 ??C (97.7 ??F) 93 % 10/16/14 1403 127/61 mmHg - - 16 36.4 ??C (97.5 ??F) 93 % Pain: Patient Vitals for the past 8 hrs: Numeric Pain Level (Scale 1-10) 10/16/14 2121 3 10/16/14 2046 4 10/16/14 2015 4 10/16/14 1820 6 Weight: Weight : 99.791 kg (220 lb) BMI: Body mass index is 30.7 kg/(m^2). Glucose Readings (last 8 readings): No results found for this basename: GLUCOSEFINGE, in the last 72 hours Exam: Gen NAD, cooperative HEENT normocephalic, EOMi, MMM CV: RRR, S1/S2 normal, 2/6 soft SARITA best over LUSB Resp CTAB Abd +BS, soft, nontender Back biopsy site (right) CDI, no ecchymoses Groin: no inguinal or scrotal ecchymoses Ext WWP, minimal edema Pressure Ulcer Present on admission? No Data Review: Labs: I have personally reviewed CBC: Lab Results Component Value Date WBC 8.58 10/16/2014 RBC 4.01* 10/16/2014 HGB 11.7* 10/16/2014 HCT 34.5* 10/16/2014 MCV 86 10/16/2014 MCH 29.2 10/16/2014 MCHC 33.9 10/16/2014 PLT 274 10/16/2014 BMP: No results found for this basename: NA, K, CL, CO2, BUN, Creatinine, GLUCOSEFINGE, Calcium, MG, PHOS, LABALBU Coagulation: Lab Results Component Value Date PROTIME 11.5 10/16/2014 INR 1.1 10/16/2014 Assessment/Problems: (update problem list daily as appropriate) 64 y/o M with PMH of CKD4, cardiomyopathy, T2DM, ARIELLA (on CPAP), HLD, and HTN who presents for observation following right renal biopsy. Currently no evidence of active bleeding. Will aim to keep SBP <140. Plan: Post-procedural Bleeding - q6hr H&H - bedrest - SBP <140 - hydralazine 20mg q4hr for BP >140 - dilaudid for pain HTN / Cardiomyopathy - continue home amlodipine, coreg, clonidine, doxazosin, hydralazine, pravastatin - hold spironolactone, losartan, furosemide T2DM - SSI ARIELLA - CPAP VTE Prophylaxis: hold for post-procedural bleeding Code Status: Full Code Discharge Plan: Home or self care Edinson Leary MD 10/16/2014 21:52 [phone] documented in this encounter Procedure Notes * Devon Zaman MD - 10/16/2014 1135 EDTProcedure(s): KIDNEY BIOPSY Pre-Procedure Diagnose(s): CKD (chronic kidney disease) stage 4, GFR 15-29 ml/min ([facility]) Post-Procedure Diagnose(s): CKD (chronic kidney disease) stage 4, GFR 15-29 ml/min ([facility]) Kidney Biopsy PROCEDURE REPORT SERVICE DATE: 10/16/2014 OPERATORS: Salma Adams MD FLOW MACHINE OPERATOR: Devon Zaman MD PROCEDURE: US guided Percutaneous needle core biopsy of the right [place] kidney. INDICATIONS Ethel Akins is a 64 y.o.-year-old male with a history of CKD stage 4. The glomerular filtration rate is 16ml/min/1.73m2. At the time of this procedure, the patient had no clinical complaints. NARRATIVE First, it was ascertained that the patient's coagulation parameters and blood pressure were appropriate for the procedure. To obtain informed consent, Dr Salma Adams MD reviewed the indications andrisks of the procedure with the patient. He stopped his Plavix 10 days ago. After obtaining informed consent, the right kidney was imaged with ultrasound and we confirmed that there was no evidence of a fluid collection or hydronephrosis. His left kidney had a cyst in the lower pole and hence was avoided. A target area was marked on the overlying skin, and that area of the was prepped and draped in sterile fashion with Betadine and sterile towels. The left kidney was again localized with ultrasound and, after applying local anesthetic with 1% lidocaine (mixed with sodium bicarbonate) down to the capsule of the kidney, a #11 scalpel blade was used to make a 5-mm incision at the marked site. Under direct real-time ultrasound guidance, a 16-gauge biopsy gun was used to take core samples of the kidney. 6 passes were made and 2 adequate-sized core biopsies and 2 small sized core biopsies were obtained. Using a 10x eyepiece, Dr Zaman confirmed the tissue represented kidney cortex and medulla. Patient comfort was maintained at all times and he tolerated the procedure well. A followup ultrasound immediately after the procedure showed perinephric collection. Dr Soni (radiologist) was present through out the invasive part of the procedure. The patient was transported to the post-procedure room for monitoring vital signs, and we will check a CBC in 4 hours. The kidney core biopsies were hand delivered to MCKINLEY Haile in surgical pathology for processing. I called [facility] to sign out the plan for him COMPLICATIONS (or unexpected events): None Unless otherwise noted, there were no complications, no blood loss, cultures obtained, specimens removed, or drains retained. CBC will be drawn in 4 hrs and will be reported to oncall fellow to compare prior to planning discharge. Salma Adams MD Renal fellow PGY 4 Hb repeated after 4 hrs was 11.8 compared to 13 prior to the procedure. He has voided urine withoutany blood tinge. He however has pain in his Rt groin which started simultaneously at the same time as the local anesthesia wore off and his Rt flank pain started. He had sweating, felt nauseous and dizzy at the time of our visit to him. He had some tenderness in the Rt side of his scrotum with minimal cough impulse. His Hb was repeated again at that time and it was 11.7gm/dL. I hence arranged forhim to have a non contrast CT Abd/pel scan to rule out any bleeding. His vitals remain normal for now. Salma Adams MD I got a call from Dr Bauer (Radiologist) at 17:[address] scan has shown a Rt sided retroperitoneal bleed without any compression or obstruction of the ureter. I hence called (Attending school crossing guard oncrufino) and Dr Morse (Renal fellow oncall) to update them of the situation and the plan to admit him for observation. Salma Adams MD I was present at the bedside throughout the procedure. The initial 4 passes did not yield adequate tissue. Because of the need to explain progressive kidney failure and the absence of obvious complications and additional two passes were made and adequate cores were obtained. All tissue was taken topathology and processing of the tissue was discussed.. Devon Hernandez 10/16/2014 19:22 documented in this encounter Miscellaneous Notes * Plan of Care - Marisabel Wadsworth RN - 10/17/2014 1431 EDT Problem: Daily Care Plan Goals Goal: Care Plan Documentation Outcome: Met This Shift 10/17/14 0835 Care Plan Focus Area of Focus Pain/ Comfort Goal This Shift tolerable pain Data: Pt POD 1 s/p kidney biopsy. Pt stating pain is between 3-4/10. Pt was on bedrest at the beginning of the shift but then was able to ambulate with assistance. Pt was independent with ambulation and felt well enough to go home. Pt is voiding adequately. Discharge order received. Action: IV removed, scheduled and prn medications administered. Assisted with ambulation the first time. Pt eager to go home. Clustered care. Response: Pt left the floor via wheelchair and his . Prescriptions were sent to the [facility] pharmacy. Marisabel Wadsworth RN 10/17/2014 14:29 * Plan of Care - Bev Merino RN - 10/17/2014 0329 EDT Problem: Daily Care Plan Goals Goal: Care Plan Documentation 10/16/142014 Care Plan Focus Area of Focus Education Goal This Shift orient pt to room, unit and facility Data: Pt admitted to B390-2 from [facility] s/p R renal biopsy post bleed, Pt alert and oriented x 3, VSS BP 122/68 Pulse 54 Temp(Src) 35.9 ??C (96.6 ??F) (Tympanic) Resp 18 Ht 180.3 cm (71) Wt 99.791 kg (220 lb) BMI 30.70 kg/m2 SpO2 96% rating pain 4-5/10 Action: Pt oriented to room, unit and facility, assessment performed, scheduled medications administered. Response: Pt verbalized understanding of education, pt able to sleep most of night. Call robles within reach, will continue to monitor. 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) Ordered: 10/17/2014 documented as of this encounter Procedures Procedure Name Priority Date/Time Associated Diagnosis Comments COMPLETE BLOOD COUNT Routine 10/17/2014 12:45 EDT COMPLETE BLOOD COUNT Routine 10/17/2014 6:16 EDT COMPLETE BLOOD COUNT Routine 10/16/2014 23:56 EDT PROTIME Routine 10/16/2014 20:[address] ABDOMEN, PELVIS WO CONTRAST 10/16/2014 17:07 EDT COMPLETE BLOOD COUNT STAT 10/16/2014 16:07 EDT COMPLETE BLOOD COUNT STAT 10/16/2014 14:55 EDT SURGICAL PATHOLOGY Routine 10/16/2014 11 :28 EDT COMPLETE BLOOD COUNT STAT 10/16/2014 9:25 EDT documented in this encounter Results * (ABNORMAL) HEMAGRAM (10/17/2014 12:45 EDT) WBC 10.60(H) 4.0 - 10.4 K/cmm 10/17/2014 13:01 [facility] RBC 3.87(L) 4.36 - 5.78 M/cmm 10/17/2014 13:01 [facility] Hemoglobin 11.4(L) 13.8 - 17.3 gm/dl 10/17/2014 13:01 [facility] HCT 33.7(L) 39.5 - 50.2 % 10/17/2014 13:01 [facility] MCV 87 81 - 95 fl 10/17/2014 13:01 [facility] MCH 29.5 27.6 - 33.0 pg 10/17/2014 13:01 [facility] MCHC 34.0 32.8 - 36.4 gm/dl 10/17/2014 13:01 [facility] RDW-CV 13.8 11.8 - 14.1 % 10/17/2014 13:01 [facility] RDW-SD 41.6 36.5 - 45.9 fl 10/17/2014 13:01 [facility] PLT 277 141 - 320 K/cmm 10/17/2014 13:01 [facility] MPV 8.1 7.5 - 11.2 fl 10/17/2014 13:01 [facility] Blood specimen (specimen) BLOOD SPECIMEN / Unknown 10/17/2014 12:45 EDT 10/17/2014 12:54 EDT Edinson Leary MD HEMATOLOGY & PF4 ORD ERABLES [facility] [address] [place] [address] * (ABNORMAL) HEMAGRAM (10/17/2014 6:16 EDT) WBC 9.51 4.0 - 10.4 K/cmm 10/17/2014 7:32 [facility] RBC 3.65(L) 4.36 - 5.78 M/cmm 10/17/2014 7:32 [facility] Hemoglobin 11.1(L) 13.8 - 17.3 gm/dl 10/17/2014 7:32 [facility] HCT 31.5(L) 39.5 - 50.2 % 10/17/2014 7:32 [facility] MCV 86 81 - 95 fl 10/17/2014 7:32 [facility] MCH 30.3 27.6 - 33.0 pg 10/17/2014 7:32 [facility] MCHC 35.2 32.8 - 36.4 gm/dl 10/17/2014 7:32 [facility] RDW-CV 13.5 11.8 - 14.1 % 10/17/2014 7:32 [facility] RDW-SD 40.7 36.5 - 45.9 fl 10/17/2014 7:32 [facility] PLT 272 141 - 320 K/cmm 10/17/2014 7:32 [facility] MPV 8.3 7.5 - 11.2 fl 10/17/2014 7:32 [facility] Blood specimen (specimen) BLOOD SPECIMEN / Unknown 10/17/2014 6:16 EDT 10/17/2014 6:45 EDT Edinson Leary MD HEMATOLOGY & PF4 ORD ERABLES [facility] [address] [place] [address] * (ABNORMAL) HEMAGRAM (10/16/2014 23:56 EDT) WBC 10.12 4.0 - 10.4 K/cmm 10/17/2014 0:08 [facility] RBC 3.71(L) 4.36 - 5.78 M/cmm 10/17/2014 0:08 [facility] Hemoglobin 11.0(L) 13.8 - 17.3 gm/dl 10/17/2014 0:08 [facility] HCT 32.0(L) 39.5 - 50.2 % 10/17/2014 0:08 [facility] MCV 86 81 - 95 fl 10/17/2014 0:08 [facility] MCH 29.5 27.6 - 33.0 pg 10/17/2014 0:08 [facility] MCHC 34.3 32.8 - 36.4 gm/dl 10/17/2014 0:08 [facility] RDW-CV 13.7 11.8 - 14.1 % 10/17/2014 0:08 [facility] RDW-SD 42.4 36.5 - 45.9 fl 10/17/2014 0:08 [facility] PLT 265 141 - 320 K/cmm 10/17/2014 0:08 [facility] MPV 7.8 7.5 - 11.2 fl 10/17/2014 0:08 [facility] Blood specimen (specimen) BLOOD SPECIMEN / Unknown 10/16/2014 23:56 EDT 10/17/2014 Edinson Leary MD HEMATOLOGY & PF4 ORD ERABLES [facility] [address] [place] [address] * PROTIME (10/16/2014 20:12 EDT) Pro Time 11.5 9.5 - 12.3 secs 10/16/2014 21:05 [facility] I.N.R. 1.1 0.9 - 1.1 Ratio 10/16/2014 21:05 [facility] Comment: Moderate Intensity Coumadin INR = 2.0-3.0 Adjustments in anticoagulant therapy dose should be based upon the INR and NOT the Pro Time. Blood specimen (specimen) BLOOD SPECIMEN / Unknown 10/16/2014 20:12 EDT 10/16/2014 20:29 EDT Edinson Leary MD HEMATOLOGY & PF4 ORD ERABLES [facility] [address] [place] [address] * CT ABDOMEN, PELVIS WO CONTRAST (10/16/2014 17:07 EDT) Anatomical Region Laterality Modality Other 10/16/2014 17:0 7 EDT 10/17/2014 16:59 EDT Narrative 10/17/2014 16:[address] ABDOMEN, PELVIS WO CONTRAST ??10/16/2014 5:07 PM Signs and Symptoms/Comments: Post renal biopsy pain with drop in Hb/Hct. Underwent US guided Rt kidney Bx at 11 AM today. Comparison: Ultrasound-guided right renal biopsy six hours prior. Technique: CT of the abdomen and pelvis is performed without contrast. Images were obtained from the lung bases to the proximal femurs. Findings: There is a large right-sided retroperitoneal hematoma which measures approximately 8.1 cm in craniocaudal dimension x 7.7 cm in transverse dimension x 7.3 cm in AP dimension. The hematoma is primarily high density. The right kidney demonstrates no evidence of hydronephrosis. A small amount of blood is seen in the right perirenal space. The left kidney demonstrates no evidence of hydronephrosis or calculi. A small cyst is present in the lower pole of the left kidney. The unenhanced images of the liver, spleen, pancreas, gallbladder, and adrenal glands are unremarkable. There is a focal area of mesenteric fat stranding in the left mid abdomen which contains small nonenlarged lymph nodes. There are multiple diverticula in the colon. The urinary bladder is unremarkable. Marrow signal is heterogeneous There are small bilateral pleural effusions. There is bibasilar atelectasis. Impression: 1. Large right-sided retroperitoneal hematoma. 2. Colonic diverticulosis. 3. Focal area of mesenteric fat stranding which contains nonenlarged lymph nodes, may represent mesenteric panniculitis. I have personally reviewed the images and the above interpretation and agree with the findings. Procedure Note Breanna Alex MD - 10/17/2014 CT ABDOMEN, PELVIS WO CONTRAST 10/16/2014 5:07 PM Signs and Symptoms/Comments: Post renal biopsy pain with drop in Hb/Hct. Underwent US guided Rt kidney Bx at 11 AM today. Comparison: Ultrasound-guided right renal biopsy six hours prior. Technique: CT of the abdomen and pelvis is performed without contrast. Images were obtained from the lung bases to the proximal femurs. Findings: There is a large right-sided retroperitoneal hematoma which measures approximately 8.1 cm in craniocaudal dimension x 7.7 cm in transverse dimension x 7.3 cm in AP dimension. The hematoma is primarily high density. The right kidney demonstrates no evidence of hydronephrosis. A small amount of blood is seen in the right perirenal space. The left kidney demonstrates no evidence of hydronephrosis or calculi. A small cyst is present in the lower pole of the left kidney. The unenhanced images of the liver, spleen, pancreas, gallbladder, and adrenal glands are unremarkable. There is a focal area of mesenteric fat stranding in the left mid abdomen which contains small nonenlarged lymph nodes. There are multiple diverticula in the colon. The urinary bladder is unremarkable. Marrow signal is heterogeneous There are small bilateral pleural effusions. There is bibasilar atelectasis. Impression: 1. Large right-sided retroperitoneal hematoma. 2. Colonic diverticulosis. 3. Focal area of mesenteric fat stranding which contains nonenlarged lymph nodes, may represent mesenteric panniculitis. I have personally reviewed the images and the above interpretation and agree with the findings. Salma Adams MD IMG CT ORDERABLES * (ABNORMAL) HEMAGRAM (10/16/2014 16:07 EDT) WBC 8.58 4.0 - 10.4 K/cmm 10/16/2014 16:18 [facility] RBC 4.01(L) 4.36 - 5.78 M/cmm 10/16/2014 16:18 [facility] Hemoglobin 11.7(L) 13.8 - 17.3 gm/dl 10/16/2014 16:18 [facility] HCT 34.5(L) 39.5 - 50.2 % 10/16/2014 16:18 [facility] MCV 86 81 - 95 fl 10/16/2014 16:18 [facility] MCH 29.2 27.6 - 33.0 pg 10/16/2014 16:18 EDT [facility] MCHC 33.9 32.8 - 36.4 gm/dl 10/16/2014 16:18 T [facility] RDW-CV 13.5 11.8 - 14.1 % 10/16/2014 16:18 EDT [facility] RDW-SD 41.6 36.5 - 45.9 fl 10/16/2014 16:18 EDT [facility] PLT 274 141 - 320 K/cmm 10/16/2014 16:18 T [facility] MPV 7.9 7.5 - 11.2 fl 10/16/2014 16:18 T [facility] Blood specimen (specimen) BLOOD SPECIMEN / Unknown 10/16/2014 16:07 EDT 10/16/2014 16:15 EDT Salma Adams MD ALEIDA TOLOGY & PF4 ORDERABLES [facility] [address] [place] [address] * (ABNORMAL) HEMAGRAM (10/16/2014 14:55 EDT) WBC 8.88 4.0 - 10.4 K/cmm 10/16/2014 15:29 [facility] RBC 4.03(L) 4.36 - 5.78 M/cmm 10/16/2014 15:29 [facility] Hemoglobin 11.8(L) 13.8 - 17.3 gm/dl 10/16/2014 15:29 [facility] HCT 34.6(L) 39.5 - 50.2 % 10/16/2014 15:29 [facility] MCV 86 81 - 95 fl 10/16/2014 15:29 EDT [facility] MCH 29.3 27.6 - 33.0 pg 10/16/2014 15:29 EDT [facility] MCHC 34.1 32.8 - 36.4 gm/dl 10/16/2014 15:29 EDT [facility] RDW-CV 13.6 11.8 - 14.1 % 10/16/2014 15:29 EDT [facility] RDW-SD 40.7 36.5 - 45.9 fl 10/16/2014 15:29 EDT [facility] PLT 277 141 - 320 K/cmm 10/16/2014 15:29 EDT [facility] MPV 8.2 7.5 - 11.2 fl 10/16/2014 15:29 EDT [facility] Blood specimen (specimen) BLOOD SPECIMEN / Unknown 10/16/2014 14:55 EDT 10/16/2014 15:13 EDT Salma Adams MD ALEIDA TOLOGY & PF4 ORDERABLES Performing Organization Address City/State/[facility] Co de Phone Number [facility] [address] [place] [address] * SURGICAL PATHOLOGY (10/16/2014 11:28 EDT) Pathology Report: SURGICAL PATHOLOGY REPORT Reports generated via electronic interface contain original data; however they are lacking the format of the original report. Caution should be taken when reading/interpreting unformatted reports. Name: ? ETHEL AKINS ? Accession #: ? [id number] ? : ? 1950 (Age: 64) ??M ?Collect Date: ? 10/16/2014 ? Location: ? B003 ? Receive Date: ? 10/16/2014 ? Provider: DEVON ZAMAN MD Copy to: [place] DENIS DO SALMA GOMEZ ? Provisional Light Microscopic Diagnosis: KIDNEY, WILTON, NEEDLE CORE BIOPSIES: - ??Diffuse and nodular glomerulosclerosis with focal segmental sclerosis. See comment. - ??Moderate to severe interstitial fibrosis with tubular atrophy and chronic inflammation. - ??Small microscopic renal cortical papillary adenoma. ? Comment: The morphologic features suggest a background of diabetic nephropathy with thickened glomerular basement membranes and diffuse and nodular expansion of the mesangial regions. ??In addition scattered glomeruli show segmental sclerosis with proliferation of podocytes. The pattern of scarring is unusual for diabetes alone and therefore a secondary form of focal segmental glomerulosclerosis it is favored in addition to diabetic nephropathy. ??The majority of the inflammation present in this biopsy suggests chronic inflammation related to scarring rather than an active tubular interstitial nephritis; however concurrent active tubulointerstitial nephritis cannot be entirely excluded. ??Immunofluorescence shows no specific staining of the glomeruli to suggest an immune complex mediated form of glomerular injury. Electron microscopy is currently pending and will be reported separately. Dr. Horowitz ? Microscopic Description: BIOPSY ADEQUACY: Limited biopsy with significant scarring. ??Cortex and medulla present as well as fragments of benign skeletal muscle GLOMERULI: 26 (on Level 1 and 3), 17 of which are globally sclerotic (65% globally sclerotic glomeruli). GLOMERULAR CELLULARITY: Enlarged to contracted normocellular glomeruli with focal segmental sclerosis associated with podocyte proliferation. ??A rare intraglomerular foam cells. GLOMERULAR CAPILLARIES: Thickened capillary benítez on H&E, PAS and Glaser Silver staining with rare double contours. ??Rare hyaline thrombi in areas of segmental sclerosis. ??Rare holes present. GLOMERULAR MESANGIUM: Diffuse and nodular PAS positive, Glaser reticulated mesangial matrix expansion. INTERSTITIAL INFLAMMATION: ??Moderate (30%) inflammation present composed of quiescent appearing lymphocytes and plasma cells predominantly in the regions of scarring. ??Rare eosinophils and neutrophils present . INTERSTITIAL FIBROSIS: Severe (50-60%) cortical fibrosis on Trichrome stain. TUBULAR INJURY: ??Evidence of acute and chronic tubular injury with flattened attenuated epithelium with reactive nuclear changes in 10% of the tubules with scattered tubules with increased cytoplasmic vacuoles. ??Moderate atrophy of the tubules with PAS positive casts. TUBULAR INFLAMMATION: ??Mild tubulitis (1-4 cells/tubular cross section). ??Rare tubules with intraluminal tubular debris. ARTERIOLES: Mild to moderate arteriolar hyalinosis with medial thickening and narrowing. ARTERIES: Moderate intimal fibrosis. OTHER FINDINGS: Small papillary adenoma. Congo red stain is negative. ? Document reviewed and electronically signed by: ? ANGELINA HOROWITZ MD ? Report ??Date: 10/20/2014 12:18 By the signature above, the attending physician certifies that he/she has personally conducted a gross and/or microscopic examination of the described specimens and rendered or confirmed the above diagnosis. Specimen(s) Received: Right kidney biopsy ? Clinical History: CKD III ? Gross Description: ? Received fresh on saline soaked gauze labelled with proper patient identification (initials T, S) are two oro cylindrical tissues (1.3 and 1.7 cm in length, and each 0.1 cm in diameter) as well as multiple oro-pink tissue fragments (0.6 x 0.4 x 0.1 cm in aggregate). The specimen is examined with the macroscope and divided as follows: a portion of one piece is snap frozen in OCT for full immunofluorescence, a portion of one piece is placed in Karnovsky's fixative for electron microscopy, and the remaining two pieces of tissue are placed in Gendre's fixative and entirely submitted in 1 for light microscopy. The fragments of tissue are entirely submitted in 2. Lazara Blackmon 10/16/2014 1:59 PM ? ELECTRON MICROSCOPY ? Date Ordered: ? 10/16/2014 ? Status: ?? Signed Out ?Date Complete: ? 10/28/2014 ? By: ??ANGELINA HOROWITZ MD ? Date Reported: ? 10/28/2014 ? Interpretation KIDNEY, WILTON, NEEDLE CORE BIOPSIES: - ??Features consistent with diabetic glomerulopathy. ??See comment. 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 ??Immunofluorescence showed no specific glomerular staining. Electron microscopy findings correlate with the light and immunofluorescence findings in this case. ??There is no evidence of an immune complex mediated glomerular injury. Dr. Horowitz 10/28/2014 3:28 PM Description EM#[id number] Portions of this renal biopsy are received fixed in Karnovsky solution labelled Ethel Akins and the tissue is processed for electron microscopy. The semi-thin Toluidine blue stained sections of the 2 blocks reveal 1 glomerulus with multiple levels performed. The single glomerulus is selected for evaluation by electron microscopy. On ultrastructural analysis, the foot processes are moderately to diffusely effaced. ??There is minimal villous transformation of the podocyte cytoplasm. The glomerular capillary basement membranes (GBM) are variably thickened. Typical electron dense immune complex type deposits are not seen in the GBMs although scattered subendothelial proteinaceous deposits (probable hyalin) are present with associated cellular debris. The capillary lumens are open or compressed by expanded matrix. The mesangial matrix is increased diffusely and the mesangial cellularity is normal. There are rare proteinaceous granular aggregates in the mesangium with occasional foam cells also present. The tubules have preserved appearing epithelial cells. Document reviewed and electronically signed by: ? ANGELINA HOROWITZ MD ? Report date: 10/28/2014 By the signature above, the attending physician certifies that he/she has personally conducted a gross and/or microscopic examination of the described specimens and rendered or confirmed the above diagnosis. KIDNEY BIOPSY IMMUNOFLUORESCENCE ? Date Ordered: ? 10/16/2014 ? Status: ?? Signed Out ?Date Complete: ? 10/19/2014 ? By: ??ANGELINA HOROWITZ MD ? Date Reported: ? 10/20/2014 ? Interpretation KIDNEY, RIGHT WILTON, NEEDLE CORE BIOPSIES: - ??Nonspecific staining by immunofluorescence. ??See comment. Comment The staining pattern is nonspecific and lends no support for immune complex mediated form of glomerular injury. ??The findings will be correlated with electron microscopy which is currently pending. Dr. Horowitz 10/19/2014 9:04 AM Description A portion of this kidney is frozen for immunofluorescence. The frozen section slides show four-five glomeruli per section. Frozen section slides are exposed to fluorescein- labelled antibodies directed against IgG, IgA, IgM, C3, C1q, Fibrinogen, [place], Lambda, and polyclonal immunoglobulins (IgG, IgA, IgM). There is no specific staining of the glomeruli with any of the antibodies. Sclerotic regions of glomeruli show nonspecific entrapment with anti-IgM, anti-C3 and anti-C1q. ??There is accentuation of thickened glomerular and tubular basement membranes with many of the antibodies. ??The intratubular casts stain appropriately. ??There is no specific staining of the tubular basement membranes with anti-[place] or anti-lambda light chains. NOTE: ??One or more of the reagents used in immunofluorescence testing in this case may not have been cleared or approved by the U.S. Food and Drug Administration (FDA). ??The FDA has determined that such clearance or approval is not necessary. ??These tests are used for clinical purposes. ??They should not be regarded as investigational or for research. ??These reagents' performance characteristics have been determined by the [facility]. ??The positive and negative controls worked appropriately. This laboratory is certified under the Clinical Laboratory Improvement Amendments of 1988 (CLIA-88) as qualified to perform high complexity clinical laboratory testing. ?? Document reviewed and electronically signed by: ? ANGELINA HOROWITZ MD ? Report date: 10/20/2014 By the signature above, the attending physician certifies that he/she has personally conducted a gross and/or microscopic examination of the described specimens and rendered or confirmed the above diagnosis. End of Report [facility] 10/16/2014 11:2 8 EDT 10/16/2014 11:28 EDT Devon Zaman MD PATHOLOGY ROCHELLE JENNINGS [facility] [address] [place] [address] * (ABNORMAL) HEMAGRAM (10/16/2014 9:25 EDT) WBC 10.66(H) 4.0 - 10.4 K/cmm 10/16/2014 9:34 EDT [facility] RBC 4.39 4.36 - 5.78 M/cmm 10/16/2014 9:34 EDT [facility] Hemoglobin 13.0(L) 13.8 - 17.3 gm/dl 10/16/2014 9:34 T [facility] HCT 37.9(L) 39.5 - 50.2 % 10/16/2014 9:34 T [facility] MCV 86 81 - 95 fl 10/16/2014 9:34 T [facility] MCH 29.5 27.6 - 33.0 pg 10/16/2014 9:34 [facility] MCHC 34.2 32.8 - 36.4 gm/dl 10/16/2014 9:34 T [facility] RDW-CV 13.6 11.8 - 14.1 % 10/16/2014 9:34 [facility] RDW-SD 42.0 36.5 - 45.9 fl 10/16/2014 9:34 [facility] PLT 278 141 - 320 K/cmm 10/16/2014 9:34 [facility] MPV 8.0 7.5 - 11.2 fl 10/16/2014 9:34 [facility] Blood specimen (specimen) BLOOD SPECIMEN / Unknown 10/16/2014 9:25 EDT 10/16/2014 9:31 EDT Devon Zaman MD HEMATOLOGY & P F4 ORDERABLES Performing Organization Address City/State/[facility] Co de Phone Number [facility] [address] [place] [address] documented in this encounter Visit Diagnoses Diagnosis Retroperitoneal hematoma- Primary Hemorrhage, unspecified 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) Unspecified hypertensive heart disease without heart failure Chronic kidney disease, stage IV (severe) (HCC-CMS) Chronic kidney disease, Stage IV (severe) 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) Unspecified hypertensive heart disease without heart failure Chronic kidney disease, stage IV (severe) (HCC-CMS) Chronic kidney disease, Stage IV (severe) documented in this encounter Administered Medications Inactive Administered Medications - up to 3 most recent administrations Medication Order MAR Action Action Date Dose Rate Site amLODIPine (NORVASC) tablet 10 mg 10 mg, oral, DAILY, First dose on Thu10/16/14 at 1930, Until Discontinued, Routine Given 10/17/2014 8:35 EDT 10 mg calcitRIOL (ROCALTROL) capsule 0.25 mcg 0.25 mcg, oral, DAILY, First dose on Thu10/17/14 at 0900, Until Discontinued, Routine Given 10/17/2014 8:35 EDT 0.25 mcg carvedilol (COREG) tablet 12.5 mg 12.5 mg, oral, 2 TIMES DAILY WITH BREAKFAST & DINNER, First dose on Thu10/16/14 at 1930, Until Discontinued, Routine Given 10/17/2014 8:34 EDT 12.5 mg Given 10/16/2014 20:45 EDT 12.5 mg cloNIDine HCl (CATAPRES) tablet 0.1 mg 0.1 mg, oral, 2 TIMES DAILY, First dose on Thu10/16/14 at 0915, Until Discontinued, Routine Given 10/17/2014 8:35 EDT 0. 1 mg Given 10/16/2014 20:45 EDT 0.1 mg Given 10/16/2014 9:13 EDT 0.1 mg doxazosin (CARDURA) tablet 6 mg 6 mg, oral, DAILY, First dose on Thu10/17/14 at 0900, Until Discontinued, Routine Given 10/17/2014 8:34 EDT 6 mg furosemide (LASIX) tablet 100 mg 100 mg, oral, 2 TIMES DAILY, First dose on Thu10/16/14 at 2030, Until Discontinued, Routine Given 10/17/2014 8:34 EDT 10 0 mg Given 10/16/2014 20:45 EDT 100 mg hydrALAzine (APRESOLINE) tablet 50 mg 50 mg, oral, 2 TIMES DAILY, First dose on Thu10/16/14 at 2100, Until Discontinued, Routine Given 10/17/2014 8:34 EDT 50 mg Given 10/16/2014 22:21 EDT 50 mg HYDROmorphone (DILAUDID) tablet 2-4 mg 2-4 mg, oral, EVERY 3 HOURS PRN, Starting on Thu10/16/14 at 2002, Until Thu10/17/14 at 1714, Pain, Routine Given 10/17/2014 12:28 EDT 4 mg Given 10/17/2014 8:35 EDT 4 mg Given 10/17/2014 2:55 EDT 4 mg HYDROmorphone (PF) (DILAUDID) 1 mg/mL injection 0.2-0.6 mg 0.2-0.6 mg, intravenous, EVERY 4 HOURS PRN, Starting on Thu10/16/14 at 2002, Until Thu10/17/14 at 1714, Pain, Routine Given 10/16/2014 22:28 EDT 0.4 mg HYDROmorphone (PF) (DILAUDID) 1 mg/mL injection 1 mg 1 mg, intravenous, NOW X1, 1 dose, On Thu10/16/14 at 1845, Routine Given 10/16/2014 18:20 EDT 1 mg losartan (COZAAR) tablet 100 mg 100 mg, oral, DAILY, First dose on Thu10/16/14 at 1930, Until Discontinued, Routine Given 10/17/2014 8:34 EDT 100 mg magnesium oxide (MAG-OX) tablet 400 mg 400 mg, oral, DAILY, First dose on Thu10/17/14 at 0900, Until Discontinued, Routine Given 10/17/2014 8:35 EDT 400 mg omeprazole (PRILOSEC) capsule 20 mg 20 mg, oral, DAILY, First dose on Thu10/17/14 at 0900, Until Discontinued, Routine Given 10/17/2014 8:35 EDT 20 mg ondansetron (PF) (ZOFRAN) injection 4 mg 4 mg, intravenous, EVERY 6 HOURS PRN, Starting on Thu10/16/14 at 1801, Until Thu10/17/14 at 1714, Nausea, Routine Given 10/16/2014 18:20 EDT 4 mg pravastatin (PRAVACHOL) tablet 20 mg 20 mg, oral, DAILY, First dose on Thu10/16/14 at 1930, Until Discontinued, Routine Given 10/17/2014 8:35 EDT 20 mg spironolactone (ALDACTONE) tablet 25 mg 25 mg, oral, DAILY, First dose on Thu10/17/14 at 0900, Until Discontinued, Routine Given 10/17/2014 8:35 EDT 25 mg documented in this encounter Discontinued Medications Medication Sig Discontinue Reason Start Date End Da te clopidogrel (PLAVIX) 75 mg tablet Take 75 mg by mouth daily 10/17/2014 clopidogrel (PLAVIX) 75 mg tablet Take 1 Tab by mouth daily for 30 days 10/24/2014 10/17/2014 cloNIDine HCl (CATAPRES) 0.1 mg tablet Take 1 Tab by mouth 2 times daily for 30 days 10/17/2014 10/17/2014 documented as of this encounter Active and Recently Administered Medications Times are shown in EDT. Scheduled Medication Order 10/15/2014 10/16/2014 10/17/2014 amLODIPine (NORVASC) tablet 10 mg (CANCELED) 10 mg, oral, DAILY, First dose on Thu10/16/14 at 1930, Until Discontinued, Routine 2035 (Not Given - Provider: Bev Merino RN - Reason: Patient/family refused - Comment: pt took this am) 0835 (Given - Provider: Marisabel Wadsworth RN) calcitRIOL (ROCALTROL) capsule 0.25 mcg (CANCELED) 0.25 mcg, oral, DAILY, First dose on Thu10/17/14 at 0900, Until Discontinued, Routine 08 (Given - Provid er: Marisabel Wadsworth RN) carvedilol (COREG) tablet 12.5 mg (CANCELED) 12.5 mg, oral, 2 TIMES DAILY WITH BREAKFAST & DINNER, First dose on Thu10/16/14 at 1930, Until Discontinued, Routine 2044 (Given - Provider: Bev Merino RN) 0834 (Given - Provider: Marisabel Wadsworth RN) cloNIDine HCl (CATAPRES) tablet 0.1 mg 0.1 mg, oral, 2 TIMES DAILY, First dose on Thu10/16/14 at 0915, Until Discontinued, Routine 912 (Given - Provider: Karly Pettit CNM)2044 (Given - Provider: Bev Merino RN) 0835 (Given - Provider: Marisabel Wadsworth RN) doxazosin (CARDURA) tablet 6 mg (CANCELED) 6 mg, oral, DAILY, First dose on Thu10/17/14 at 0900, Until Discontinued, Routine 0834 (Given - Provid er: Marisabel Wadsworth RN) furosemide (LASIX) tablet 100 mg (CANCELED) 100 mg, oral, 2 TIMES DAILY, First dose on Thu10/16/14 at 2030, Until Discontinued, Routine 2044 (Given - Provider: Bev Merino RN) 0834 (Given - Provider: Marisabel Wadsworth RN) hydrALAzine (APRESOLINE) tablet 50 mg (CANCELED) 50 mg, oral, 2 TIMES DAILY, First dose on Thu10/16/14 at 2100, Until Discontinued, Routine 222 (Given - Provider: Bev Merino RN) 0834 (Given - Provider: Marisabel Wadsworth RN) HYDROmorphone (PF) (DILAUDID) 1 mg/mL injection 1 mg (COMPLETED) 1 mg, intravenous, NOW X1, 1 dose, On Thu10/16/14 at 1845, Routine 1820 (Given - Provider: Tamela Pa RN) losartan (COZAAR) tablet 100 mg (CANCELED) 100 mg, oral, DAILY, First dose on Thu10/16/14 at 1930, Until Discontinued, Routine 2032 (Not Given - Provider: Bev Merino RN - Reason: Patient/family refused - Comment: took this am) 0834 (Given - Provider: Marisabel Wadsworth RN) magnesium oxide (MAG-OX) tablet 400 mg (CANCELED) 400 mg, oral, DAILY, First dose on Thu10/17/14 at 0900, Until Discontinued, Routine 0835 (Given - Provid er: Marisabel Wadsworth RN) omeprazole (PRILOSEC) capsule 20 mg (CANCELED) 20 mg, oral, DAILY, First dose on Thu10/17/14 at 0900, Until Discontinued, Routine 0835 (Given - Provid er: Marisabel Wadsworth RN) pravastatin (PRAVACHOL) tablet 20 mg (CANCELED) 20 mg, oral, DAILY, First dose on Thu10/16/14 at 1930, Until Discontinued, Routine 2032 (Not Given - Provider: Bev Merino RN - Reason: Patient/family refused - Comment: took this am) 0835 (Given - Provider: Marisabel Wadsworth RN) spironolactone (ALDACTONE) tablet 25 mg (CANCELED) 25 mg, oral, DAILY, First dose on Thu10/17/14 at 0900, Until Discontinued, Routine 0835 (Given - Provid er: Marisabel Wadsworth RN) PRN Medication Order 10/15/2014 10/16/2014 10/17/2014 HYDROmorphone (DILAUDID) tablet 2-4 mg(Linked Group 1) 2-4 mg, oral, EVERY 3 HOURS PRN, Starting on Thu10/16/14 at 2001, Until Thu10/17/14 at 1714, Pain, Routine 2046 (Given - Provider: Bev Merino RN)2228 (See Alternative - Provider: Bev Merino RN) 0255 (Given - Provider: Bev Merino RN)0835 (Given - Provider: Marisabel Wadsworth RN)1228 (Given - Provider: Marisabel Wadsworth RN) HYDROmorphone (PF) (DILAUDID) 1 mg/mL injection 0.2-0.6 mg (CANCELED)(Linked Group 1) 0.2-0.6 mg, intravenous, EVERY 4 HOURS PRN, Starting on Thu10/16/14 at 2001, Until Thu10/17/14 at 1714, Pain, Routine 2046 (See Alternative - Provider: Bev Merino RN)2228 (Given - Provider: Bev Merino RN) 0255 (See Alternative - Provider: Bev Merino RN)0835 (See Alternative - Provider: Marisabel Wadsworth RN)1228 (See Alternative - Provider: Marisabel Wadsworth RN) ondansetron (PF) (ZOFRAN) injection 4 mg (CANCELED) 4 mg, intravenous, EVERY 6 HOURS PRN, Starting on Thu10/16/14 at 1801, Until Thu10/17/14 at 1714, Nausea, Routine 1820 (Given - Provider: Tamela Pa RN) Linked Groups Order Group 1: HYDROmorphone (DILAUDID) tablet 2-4 mgJump to med 2-4 mg, oral, EVERY 3 HOURS PRN, Starting on Thu10/16/14 at 2001, Until Thu10/17/14 at 1714, Pain, Routine Or HYDROmorphone (PF) (DILAUDID) 1 mg/mL injection 0.2-0.6 mg (CANCELED)Jump to med 0.2-0.6 mg, intravenous, EVERY 4 HOURS PRN, Starting on Thu10/16/14 at 2001, Until Thu10/17/14 at 1714, Pain, Routine documented in this encounter Orders Medications Ordered That Chuy ht Not Have Been Administered Count Last Ordered Date First Ordered Date hydrALAzine (APRESOLINE) 20 mg in sodium chloride (NS) 0.9 % 50 mL IVPB 1 10/16/2014 HYDROmorphone (PF) (DILAUDID ) 1 mg/mL injection 1 10/16/2014 morphine 2 mg/mL injection 1 10/16/2014 morphine injection 5 mg 1 10/16/2014 Diet Count Last Ordered Date First Orde red Date DISCHARGE DIET 2 10/17/2014 Nursing Count Last Ordered Date First Orde red Date ACTIVITY INSTRUCTIONS 2 10/17/2014 BATHING INSTRUCTIONS 2 10/17/2014 DRIVING INSTRUCTIONS 2 10/17/2014 WOUND CARE INSTRUCTIONS 1 10/17/2014 CONTRAINDICATION TO ANTICOAG ULATION THERAPY 2 10/16/2014 PATIENT NOT A CANDIDATE FOR MECHANICAL VTE PROPHYLAXIS 1 10/16/2014 Admission Count Last Ordered Date First Orde red Date STATUS: OUTPATIENT MEDICAL OP BED/SERVICES 1 10/16/2014 STATUS: OUTPATIENT OBSERVATION SERVICES 1 0 10/16/2014 Transfer Count Last Ordered Date First Orde red Date NOTIFY PPS OF DISCHARGE COMPLETE 1 10/18/19 15 PPS NOTIFICATION OF PATIENT ARRIVAL ON UNIT 1 10/16/2014 Discharge Count Last Ordered Date First Orde red Date DISCHARGE PATIENT 1 10/17/2014 Legal Count Last Ordered Date First Orde red Date MISCELLANEOUS DISCHARGE INSTRUCTIONS 2 10/04 documented in this encounter Care Teams Classroom Paraprofessional Relationship Specialty Start Date End Date Albania Denis DO [address] [place] [address] PCP - General 09/27/14 documented as of this encounter
--- OUTSIDE RECORDS SUMMARY | 2024-02-14 11:14 | XMS_ITS | Encounter Summary ---
Author Organization [facility] [place] [address] Care Team Providers Care Center Hole Reamer Name Role Phone Urbano Jimenez DO Primary Care Provider [phone] Encounter Details Date Type Department Care Team (Late st Contact Info) Description 11/10/2023 Telephone [place] [address] Gurdeep Boston APRN [facility] [place] [address] Social History Tobacco Use Types Packs/Day Years [...] encounter Miscellaneous Notes * Telephone Encounter - Gurdeep Boston APRN - 11/10/2023 10:30 AM EDT Received the following phone message: Mara wants to update Yash's medication list. He was given Metformin HCL 500mg bid. He is now on antibiotics for his diverticulitis. His pcp has ordered a CT scan with contrast and wants to know if that is okay. TC to Mara. Mara states Yash's PCP added Metformin to his medication regimen (500 mg BID). No medication was removed, only metformin was added. I will update his medication list. I discussed with Mara that IV contrast is nephrotoxic, only oral contrast or NO contrast is acceptable from a transplant perspective. documented in this encounter Plan of Treatment Upcoming Encounters Date Type Department Care Team (Late st Contact Info) Description 04/15/2024 10:00 AM EDT Hospital Encounter [place] [address] Arrived documented as of this encounter Goals Goal Patient Goal Type Associated Problems Recent Progress Patient-Stated? Author DH Home Medication Compliance and Understanding Patient Facing Action Plan On track( 017 10:41 AM EDT) No Selena Cisneros, [facility] Note: Patient Goal: Clear hepatitis C Timeframe to meet goal: within 12 weeks of therapy documented as of this encounter Visit Diagnoses Not on filedocumented in this encounter Care Teams Center Hole Reamer Relationship Specialty Start Date End Date Urbano Jimenez DO [address] [place] [address] PCP - General Family Medicine 03/18/22 Ruchi Valles RN Nurse Clinic Transplant Surgery 07/30/15 documented as of this encounter
--- OUTSIDE RECORDS SUMMARY | 2024-02-14 11:14 | XMS_ITS | Encounter Summary ---
Author Organization [facility] Address [address] [place] [address] Care Team Providers Care Social Psychologist Name Role Phone Urbano Denis DO Primary Care Provider [phone] Reason for Visit * Reason Comments Chronic Kidney Disease Encounter Details Date Type Department Care Team (Late st Contact Info) Description 11/23/2014 9:00 EDT Office Visit [facility] Nephrology [address] [id number] Que Lewis MD [address] [place] [id number] Chronic kidney disease, stage IV (severe) ([facility]) (Primary Dx); Unspecified essential hypertension Social History Tobacco Use Types Packs/Day Years [...] Sign Reading Time Taken Comments Blood Pressure 144/78 11/23/2014 0906 EDT Pulse 55 11/23/2014 0906 EDT Temperature - - Respiratory Rate - - Oxygen Saturation - - Inhaled Oxygen Concentration - - Weight 102.6 kg (226 lb 3.1 oz) 11/23/2014 0906 EDT Height - - Body Mass Index 31.55 10/16/20142051 EDT documented in this encounter Functional [...] * Patient Instructions* Que Lewis MD - 11/23/2014 9:40 EDT 1. Increase hydralazine to 75mg twice each day 2. Home dialysis evaluation/consultation documented in this encounter Ordered Prescriptions Prescription Sig Dispensed Refills Start Date End Da te hydrALAzine (APRESOLINE) 25 mg tablet Take 3 Tabs by mouth 2 times daily 540 Tab 3 11/23/2014 spironolactone (ALDACTONE) 25 mg tablet Take 1 Tab by mouth daily 90 Tab 3 11/23/2014 documented in this encounter Progress Notes * Que Lewis MD - 11/23/[address] [facility] Note DATE OF SERVICE: 11/23/2014 NAME: Cody Bolden : 1950 Patient Active Problem List Diagnosis ??? Unspecified essential hypertension ??? (H)Retroperitoneal hematoma [...] stage IV (severe) INTERVAL HISTORY: Cody Bolden is scheduled for kidney transplant evaluation at [facility] in mid-December. He notes stable edema. Home blood pressure remains ~ 150/80. No nausea, anorexia, dysguesia, myoclonus, malaise. He remains interested in home dialysis when needed. Current Outpatient Prescriptions Medication Sig ??? amLODIPine [...] mg by mouth 2 times daily ??? HYDROmorphone [...] daily No Known Allergies PHYSICAL EXAMINATION: BP 144/78 Pulse 55 Wt 102.6 kg (226 lb 3.1 oz) Constitutional: No distress Mouth: No ulcers Cardiovascular: Edema present, jvp 1cm above sternal angle Skin: No vasculitic rash Gastrointestinal: Abdomen soft, non-tender Eyes: Sclerae anicteric Respiratory: Clear to auscultation bilaterally Neuro: No asterixis STUDIES: None since last visit IMPRESSION: Chronic kidney disease stage 4, proteinuric - disease progressing and transplant evaluation is planned. Patient interested in home dialysis, likely PD, though his inguinal hernia may be a factor. He is agreable to home dailysis evaluation/education. Hypertension - blood pressure improved, but not at goal < 130/80 with proteinuric CKD. PLAN: 1. Increase hydralazine to 75mg twice each day 2. Home dialysis evaluation/consultation 3. Return to clinic in 1 months with nephrology profile, PTH, hemoglobin obtained prior to the visit Que Lewis M.D. documented in this encounter Plan of Treatment Not on file documented as of this encounter Visit Diagnoses Diagnosis Chronic kidney disease, stage IV (severe) ([facility] Primary Chronic kidney disease, Stage IV (severe) Unspecified essential hypertension documented in this encounter Discontinued Medications Medication Sig Discontinue Reason Start Date End Da te spironolactone (ALDACTONE) 25 mg tablet Take 1 Tab by mouth daily Reorder 10/06/2014 11/23/2014 hydrALAzine (APRESOLINE) 25 mg tablet Take 50 mg by mouth 2 times daily Reorder 11/23/2014 documented as of this encounter Care Teams Social Psychologist Relationship Specialty Start Date End Date Urbano Denis DO [address] [place] [address] PCP - General 09/27/14 documented as of this encounter
--- OUTSIDE RECORDS SUMMARY | 2024-02-14 11:14 | XMS_ITS | Encounter Summary ---
[place] [address] Care Team Providers Care Sales Coach Name Role Phone Urbano Jimenez DO Primary Care Provider [phone] Encounter Details Date Type Department Care Team (Latest Contact Info) Description 01/16/2024 10:00 AM EDT - 01/16/2024 11:59 PM EDT Hospital Encounter Non-Invasive [place] [phone] Discharge Disposition: Home Social History Tobacco Use Types Packs/Day Years Used Date Smoking Tobacco: Light Smoker Cigars Smokeless Tobacco: Never Comments:cigars, one weekly Alcohol Use Standard Drinks/Week Comments No 0 (1 standard drink = 0.6 oz pur e alcohol) [facility] Inpatient Questions Answer Date Recorded Does Anyone [...] Sig Dispensed Refills Start Date End Date calciTRIoL (Rocaltrol) 0.5 mcg capsuleIndications:H/O kidney transplant,Other complication of kidney transplant Take 1 capsule by mouth daily. 90 capsule 3 12/02/2023 metFORMIN (Glucophage) 500 mg tablet Take 500 mg by mouth 2 times daily (with meals). aspirin 81 mg chewable tablet Take 81 [...] tablet 1 06/05/2023 atorvastatin (Lipitor) 40 mg tabletIndications:Sanderson ry artery disease TAKE ONE TABLET BY MOUTH [...] Tablet Take 137 mcg by mouth daily. documented as of this encounter Plan of Treatment Upcoming Encounters Date Type Department Care Team (Late st Contact Info) Description 04/15/2024 10:00 AM EDT Hospital Encounter Non-Invasive [place] [address] Arrived documented as of this encounter Goals Goal Patient Goal Type Associated Problems Recent Progress Patient-Stated? Author DH Home Medication Compliance and Understanding Patient Facing Action Plan On track( 017 10:41 AM EDT) Selena Scott, [facility] Note: Patient Goal: Clear hepatitis C Timeframe to meet goal: within 12 weeks of therapy documented as of this encounter Procedures Procedure Name Priority Date/Time Associated Diagnosis Comments PRO PM INTERROGATION REMOTE UP TO 90 DAYS Routine 12/05/2023 12:38 AM EDT documented in this encounter Results * Cardiac Device Check - Remote (12/05/2023 12:38 AM EDT) Anatomical Region Laterality Modality Other 12/05/2023 12:3 8 AM EDT Ryley Vargas MD IMPLANTABLE CARDIAC DEVICE documented in this encounter Visit Diagnoses Not on filedocumented in this encounter Care Teams Sales Coach Relationship Specialty Start Date End Date Urbano Jimenez DO [address] [place] [address] PCP - General Family Medicine 03/18/22 Ruchi Valles RN Nurse Clinic Transplant Surgery 07/30/15 documented as of this encounter
--- OUTSIDE RECORDS SUMMARY | 2024-02-14 11:14 | XMS_ITS | Encounter Summary ---
Author Organization [place] [id number] Care Team Providers Care Credit Consultant Name Role Phone Urbano Jimenez DO Primary Care Provider [phone] Reason for Referral * Diagnostic Test (Routine) - Pending Review Specialty Diagnoses / Procedures Referred By Humberto flor Referred To Contact Radiology Procedures Non External Radiology Exam [facility] Transplant [address] [place] [phone] Referral ID Status Reason Start Date Expiration Date Visits Requested Visits Authorized [id number] Pending Review Specialty Service Requested 01/14/2024 07/16/2025 1 1 * Diagnostic Test (Routine) - New Request Specialty Diagnoses / Procedures Referred By Humberto flor Referred To Contact Radiology Procedures Non External Radiology Exam [facility] Transplant [address] [place] [phone] Referral ID Status Reason Start Date Expiration Date Visits Requested Visits Authorized [id number] New Request Specialty Service Requested 01/14/2024 07/16/2025 1 1 Encounter Details Date Type Department Care Team (Late st Contact Info) Description 01/14/2024 External Results [place] [address] Social History Tobacco Use Types Packs/Day Years [...] AM EDT Hospital Encounter Non-Invasive [place] [address] Arrived documented as of this encounter Goals Goal Patient Goal Type Associated Problems Recent Progress Patient-Stated? Author [facility] Medication Compliance and Understanding Patient Facing Action Plan On track( 017 10:41 AM EDT) No Selena Cisneros, [facility] Note: Patient Goal: Clear hepatitis C Timeframe to meet goal: within 12 weeks of therapy documented as of this encounter Procedures Procedure Name Priority Date/Time Associated Diagnosis Comments NON EXTERNAL RADIOLOGY EXAM Routine 11/13/2023 2:[address] [facility] EXTERNAL LAB PANEL Routine 11/13/2023 2:03 PM EDT NON EXTERNAL RADIOLOGY EXAM Routine 09/23/2023 2:07 PM EDT documented in this encounter Results * Non External Radiology Exam (11/13/2023 2:17 PM EDT) Anatomical Region Laterality Modality Magnetic Resonan ce Historical Provider MD MURPHY MRI ORDERABLE S * [facility] External Lab Panel (11/13/2023 2:03 PM EDT) Historical Provider POINT OF CARE BOBY T ORDERABLES * Non DH External Radiology Exam (09/23/2023 2:07 PM EDT) Anatomical Region Laterality Modality Magnetic Resonan ce Historical Provider IMG MRI ORDERABLE S documented in this encounter Visit Diagnoses Not on filedocumented in this encounter Care Teams Credit Consultant Relationship Specialty Start Date End Date Urbano Jimenez DO [address] [place] [address] PCP - General Family Medicine 03/18/22 Ruchi Valles RN Nurse Clinic Transplant Surgery 07/30/15 documented as of this encounter
--- OUTSIDE RECORDS SUMMARY | 2024-02-14 11:14 | XMS_ITS | Encounter Summary ---
[place] [address] Care Team Providers Care Docking Saw Operator Name Role Phone Tony Urbano Bell DO Primary Care Provider [phone] Encounter Details Date Type Department Care Team (Late st Contact Info) Description 11/10/2023 Orders Only [place] [address] Gurdeep [place] [facility] [place] [address] Social History Tobacco Use Types Packs/Day Years Used Date Smoking Tobacco: Light Smoker Cigars Smokeless Tobacco: Never Comments:cigars, one weekly Alcohol Use Standard Drinks/Week Comments No 0 (1 standard drink = 0.6 oz pur e alcohol) [facility] Inpatient Questions Answer Date Recorded Does [...] AM EDT Hospital Encounter Non-[place] [address] Arrived documented as of this encounter Goals Goal Patient Goal Type Associated Problems Recent Progress Patient-Stated? Author DH Home Medication Compliance and Understanding Patient Facing Action Plan On track( 017 10:41 AM EDT) Selena Scott, [facility] Note: Patient Goal: Clear hepatitis C Timeframe to meet goal: within 12 weeks of therapy documented as of this encounter Visit Diagnoses Not on filedocumented in this encounter Care Teams Docking Saw Operator Relationship Specialty Start Date End Date Urbano Jimenez DO [address] [facility] [address] [place] [address] PCP - General Family Medicine 03/18/22 Ruchi Valles RN Nurse Clinic Transplant Surgery 07/30/15 documented as of this encounter
--- OUTSIDE RECORDS SUMMARY | 2024-02-14 11:14 | XMS_ITS | Encounter Summary ---
Author Organization [facility] Address [address] [place] [address] Care Team Providers Care Cut Out Stitcher Name Role Phone Urbano Denis DO Primary Care Provider [phone] Reason for Visit * Reason Onset Date Comments Other 10/10/2014 Encounter Details Date Type Department Care Team ([facility] st Contact Info) Description 10/10/2014 Telephone [facility] Nephrology - [address] [id number] Que Lewis MD [address] [address] Other Social History Tobacco Use Types Packs/Day Years Used Date Smoking Tobacco: Never Assessed Sex and Gender Information Value Date Recorded Sex Assigned at Not on file Gender Identity Not on file Sexual Orientation Not on file documented as of this encounter Miscellaneous Notes * Telephone Encounter - Radha Judge RN - 10/10/2014 1442 EDT Faxing labs from [facility], will be entered in [facility]. DONE * Telephone Encounter - Que eLwis MD - 10/10/2014 1415 EDT That looks better. Any sign of coags (pt/ptt) from Thursday? * Telephone Encounter - Magaly Garza - 10/10/[address] Lewis wanted patient to call with his BP: 146/52 documented in this encounter Plan of Treatment Not on file documented as of this encounter Visit Diagnoses Not on filedocumented in this encounter Care Teams Cut Out Stitcher Relationship Specialty Start Date End Date Urbano Denis DO [address] [place] [address] PCP - General 09/27/14 documented as of this encounter
--- OUTSIDE RECORDS SUMMARY | 2024-02-14 11:14 | XMS_ITS | Clinical Summary ---
Author Organization [facility] Address [address] [facility] [facility] [place] [address] Care Team Providers Care Industrial/Organizational Psychologist Name Role Phone Urbano Jimenez DO Primary Care Provider [phone] Allergies Active Allergy Reactions Criticality Noted Date Comments [place] 02/25/2022 Medications Medication Sig Dispensed Refills Start Date End Date Status levothyroxine (SYNTHROID) 137 mcg Tablet Take 137 mcg by mouth daily. Active tamsulosin (FLOMAX) 0.4 mg Capsule Take 0.4 mg by mouth daily. 01/18/2019 Active acetaminophen (TYLENOL) 500 mg Tablet Take 1,000 mg by mouth every 8 hours as needed for Pain. Active nitroGLYcerin (NITROSTAT) 0.4 mg Tablet, Sublingual Place 1 tablet under the tongue every 5 minutes as needed for Chest pain. 90 tablet 12 02/05/2019 Active glipiZIDE XL (Glucotrol XL) 10 mg Tablet Extended Rel 24 hr Take 10 mg by mouth 2 times daily. Active ascorbic acid, Vitamin C, (Vitamin C) 500 mg Tablet Take 1 tablet by mouth 3 times daily. 270 tablet 2 12/27/2020 Active multivitamin with minerals and lutein Tablet Take 2 tablets by mouth daily. 180 tablet 2 12/27/2020 Active Additional Information Patient taking differently: 1 tabletOral2 Times Daily, Reported on 05/07/2022 amLODIPine (Norvasc) 5 mg Tablet Take 1 tablet by mouth daily. 90 tablet 3 02/02/2022 Active Additional Information Patient taking differently:5 mg OralNIGHTLY, Reported on 05/07/2022 hydrALAZINE (Apresoline) 100 mg tabletIndications:H /O kidney transplant,Aftercar e following organ transplant,Hyperten georgette secondary to other renal disorders Take 1 tablet by mouth 2 times daily. 180 tablet 3 10/14/2022 Active atorvastatin (Lipitor) 40 mg tabletIndications:C oronary artery disease TAKE ONE TABLET BY MOUTH EVERY EVENING 90 tablet 3 02/11/2023 Active Magnesium Gluconate (Mag-G) 27 mg magnesium (500 mg) TabletIndications:H /O kidney transplant Take 2 tablets by mouth every morning AND 1 tablet Daily at Noon AND 2 tablets every evening. 450 tablet 1 06/05/2023 Active tacrolimus (Prograf) 1 mg IR capsuleIndications: H/O kidney transplant Take 1 capsule by mouth 2 times daily. 180 capsule 08/13/2023 Active mycophenolate (Cellcept) 250 mg capsuleIndications: H/O kidney transplant Take 1 capsule by mouth 2 times daily. 180 capsule 08/13/2023 Active metoprolol succinate XL (Toprol-XL) 50 mg ER 24 hr tablet Take 1.5 tablets by mouth 2 times daily. 270 tablet 1 09/04/2023 Active aspirin 81 mg chewable tablet Take 81 mg by mouth daily. Active empagliflozin (Jardiance) 10 mg tabletIndications:T ype 2 diabetes mellitus with complication, without long-term current use of insulin Take 1 tablet by mouth daily. 90 tablet 3 09/16/2023 Active metFORMIN (Glucophage) 500 mg tablet Take 500 mg by mouth 2 times daily (with meals). Active calciTRIoL (Rocaltrol) 0.5 mcg capsuleIndications: H/O kidney transplant,Other complication of kidney transplant Take 1 capsule by mouth daily. 90 capsule 3 12/02/2023 Active Active Problems Problem Noted Date Diagnosed Date Hypertriglyceridemia 09/21/2023 PTDM (post-transplant diabetes mellitus) 024 Calculus of bile duct withou t cholangitis or cholecystitis without obstruction 09/21/2023 Diverticulitis 09/14/2022 Atrial fibrillation 05/08/2022 Aortic stenosis, mild 03/18/2022 Mitral regurgitation 03/18/2022 Overview (03/18/2022): Moderate Pacemaker 01/31/2022 Overview (03/18/2022): 01/31/2022 Successful implantation of a dual chamber Medtronic pacemaker Medtronic [place] XT DR MRI Model 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 Postprandial RUQ pain 10/22/2021 Gall stones 10/22/2021 Tobacco abuse counseling 10/08/2020 Herniated lumbar intervertebral disc 05/10/2020 CAD (coronary artery disease) 11/24/2019 Overview (02/16/2020): 01/31/2019 NSTEMI in setting of atrial flutter with 2:1 conduction 02/01/2019 TTE: est LVEF 30%. 02/02/2019 Left heart catheterization, LVEDP 26 mmHg, R dominant, PCI of 95% ostial LCX with 2.50 x 12 mm Resolute FELY (CUATE), otherwise only mild diffuse disease. 02/07/2019 TTE: LVEF 56% by biplane MOD, estimated 40-50%, with SWMA. Assessment & Plan (02/17/2020 2:57 PM EDT): Pt his doing well, no angina, no CHF sympoms, good exertional tolerance however somewhat limited by leg pain from his spine. No further studies needed prior to back surgery. In view of his known CAD and s/p PCI, would advise to continue ASA 81 mg/day without stopping for back surgery to lower risk of periop W[place] or stent thrombosis. Left leg pain 05/30/2019 Atrial fibrillation with RVR - had flutter initially, then fib 01/31/2019 Overview (06/26/2022): ZIO Study 03/14/2021: Duration of recordind 23h Conclusion: Frequent brief episodes of SVT, all asymptomatic. The predominant rhythm is sinus rhythm. TTE 01/31/2022: Interpretation Summary Left ventricle is of normal size. Wall thickness is moderately increased. There is no left ventricular outflow tract obstruction. There is no ventricular septal defect. Left ventricular systolic function is mildly reduced. The left ventricular ejection fraction is 46% by Elizabeth's biplane. Mild global hypokinesis. The right ventricle is probably normal in size. Right ventricular systolic function is mildly decreased. The peak right ventricular systolic pressure is 40 mmHg. The estimated right atrial pressure is 8mmHg. The left atrium is severely dilated. The aortic valve is mildly calcified. There is mild aortic stenosis with a planimetric valve area of 2.2 cm2. The right coronary cusp does not have any opening mobility, the other cusps have normal mobility. The peak instantaneous gradient across the aortic valve is 16 mmHg. The mean gradient across the aortic valve is 8 mmHg. There is trace aortic regurgitation. The aortic root and ascending aorta are mildly dilated. There is a trivial pericardial effusion. Compared to 12/20/2020, the pt is now in atrial fibrillation, there is mildly reduced biventricular systolic function, the estimated PASP has increased. TTE 02/19/2022: Interpretation Summary Left ventricle is mildly dilated. Wall thickness is moderately increased. Left ventricular systolic function is mildly reduced. The left ventricular ejection fraction is 45% by Elizabeth's biplane. There is global hypokinesis with regional variation. The right ventricle is of normal size. Right ventricular systolic function is mildly decreased. Estimated PASP is 33 mHg. There is mild aortic stenosis. There is moderate mitral regurgitation. 05/08/2022:Successful left atrial occlusion procedure Watchman FLX Closure Device 27 mm DAVEY 05/08/2022: Interpretation Summary DAVEY performed to guide BATOOL closure in catheterization laboratory. Baseline: No BATOOL thrombus. Max os diameter of ~22 mm. Small pericardial effusion. Post: 27 mm Watchman FLX device well-seated within BATOOL. No mary-device leak. No change in pericardial effusion. Urko-dx-ynjxc flow across atrial septostomy. See report for additional findings. TTE 05/08/2022: Interpretation Summary Limited post Watchman protocol. There was a small pericardial effusion pre-procedure which is unchanged immediately post procedure (earlier today by DAVEY) and by TTE now. There is no echocardiographic evidence of tamponade. See report for additional findings. Assessment & Plan (02/17/2020 3:14 PM EDT): In SR today, pt should stop his apixaban 2 days prior to surgery (or whatever Dr Bradford advises). His reduced LVEF likely at least in part was related to tachymyopathy. Pt is not on ARB as discussed by Dr Brown in his last note, but at this point does not have clinical CHF (and his LVEF had improved after aflutter episode). Hydronephrosis 06/16/2018 Obesity (BMI 30.0-34.9) 11/10/2017 Debility 10/05/2017 Pain of right lower extremity 10/05/2017 Vitamin D deficiency 09/20/2017 Prophylactic immunotherapy 09/22/2016 intermediate current use of 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 drug 09/22/2016 CAH (chronic active hepatitis) 08/25/2016 Type 2 diabetes mellitus wit h complication, without long-term current use of insulin 08/12/2016 H/O kidney transplant 06/13/2016 Aftercare following organ transplant 06/13/2016 Dehydration 05/13/2016 Ureteral stricture 04/29/2016 Enterococcal bacteremia 02/05/2016 Other complication of kidney transplant 11/12/19 16 Hepatitis C virus infection 01/04/2015 CGN (chronic glomerulonephritis) 10/16/2014 Overview (05/29/2015): Overview: 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 If usually 130 or more on home measurements, would increase amlodipine to 5 mg to be taken at night. Have suggested to follow up with Dr Brown or his PCP in this regard, could be by telephone office visit in a month or so. DJD (degenerative joint disease) 09/03/2012 Hematuria 09/03/2012 Resolved Problems Problem Noted Date Diagnosed Date Resolved Date S/P R TKA 11/25/17 Dr. Dale 11/25/2017 04/11/2020 Primary osteoarthritis of right knee 10/05/2017 03/05/2018 Weight increase 08/12/2016 04/11/2020 Sepsis 06/22/2016 04/11/2020 RAY (acute kidney injury) 11/27/2015 Renal failure 09/16/2015 07/22/2016 Chronic kidney disease, stage V 05/29/2015 07/22/2016 ESRD (end stage renal disease) 04/27/2015 07/22/2016 Encounters Date Type Department Care Team Description 01/16/2024 10:00 AM EDT - 01/16/2024 11:59 PM EDT Hospital Encounter [place] [phone] Discharge Disposition: Home 01/14/2024 External Results [place] [phone] 01/06/2024 Telephone [place] [address] Barbara Josue 12/02/2023 Refill [place] [address] Gurdeep Boston APRN H/O kidney transplant; Other complication of kidney transplant 11/17/2023 External Results [place] [address] from Last 3 Months Immunizations Name Administration Dates Next Due Covid-19 (Pfizer), Garcia Cap Bivalent 30mcg (12Yrs+) 12/22/2022,04/24/2022 Covid-19 (Pfizer), Purple Ca p Monovalent Vaccine (12yrs+) 04/24/2022 Hepatitis B Unspecified Formulation 06/20/2015,1 07/14/2014,04/16/2015 Influenza (Fluzone HD) Triva lent High Dose 04/23/2016 Influenza PF, Split 08/03/2017, 5,05/26/2013,06/04 Influenza Quadrivalent, Pres ervative Free (6-35 Mos) 04/04/2015 Influenza Unspecified Formulation 04/24/2022 Moderna Covid-19 Monovalent 12Yr+ (Collator Operator 100mcg) 05/11/2021,10/03/2020,09/05/2020 Pneumococcal Polysaccharide (Pneumovax 23) 10/03/2021,04/11/2015,06/20/2014 TD Adult 05/20/2011,07/06/2000 Tdap 09/30/2022,05/20/2011 Zoster (Zostavax) LIVE 08/30/2015 Family History Medical History Relation Comments Heart Disease Father Arrhythmia Mother Chronic Obstructive Pulmonary Disease Mother Relation Status Comments Father Mother Alive Social History Tobacco Use Types Packs/Day Years Used Date Smoking Tobacco: Light Smoker Cigars Smokeless Tobacco: Never Tobacco Cessation:Ready to Q uit: Not Asked; Counseling Given: Not Answered Comments:cigars, one weekly Alcohol Use Standard Drinks/Week Comments No 0 (1 standard drink = 0.6 oz pur e alcohol) DH IPV Inpatient Questions Answer Date Recorded Does [...] ??F) 09/16/2023 11:01 AM EDT Respiratory Rate 18 09/19/2022 10:37 AM EDT Oxygen Saturation 96% 09/16/2023 11:01 AM EDT Inhaled Oxygen Concentration - - Weight 107 kg (235 lb 12.8 oz) 09/16/2023 11:01 AM EDT Height 180.3 cm (5' 11) 10/22/2022 1:56 PM EDT Body Mass Index 32.89 10/22/2022 1:56 PM EDT Plan of Treatment Upcoming Encounters Date Type Department Care Team (Late st Contact Info) Description 04/15/2024 10:00 AM EDT Hospital Encounter [place] [address] Arrived Health Maintenance Due Date Last Done Comments CT Colonography 1948 Colonoscopy 1948 Colorectal Cancer Screening 1948 FIT DNA 1948 FIT 1948 Sigmoidoscopy (10 year) with FIT yearly 1948 Sigmoidoscopy 1948 DM Opthalmology Exam 1958 DM Urine Microalbumin yearly 1958 AAA Screen 2013 Zoster vaccine (1 of 2) 10/25/2015 08/30/2015 DM Hemoglobin A1c 6 month 09/15/20222021, 01/30/2022, 09/12/2019, Additional history exists Pneumoccocal Vaccine: 65+ (3 of 3 - PCV) 10/03/2022 10/03/2021, 04/11/2015, 06/20/2014 Covid-19 Vaccine (7 - 2022-2 4 season) 2023 12/22/2022, 04/24/2022, 04/24/2022, Additional history exists DM Creatinine yearly 10/11/2023 10/10/2022, 09/19/2022, 09/18/2022, Additional history exists Influenza (Flu) vaccine (1 o f 1 - Influenza standard series) 03/06/2024 04/24/2022, 08/03/2017, 04/23/2016, Additional history exists Tetanus vaccine 09/30/2032 09/30/2022, 05/06, 05/20/2011, Additional history exists Tdap adult Completed 09/30/2022, 05/20/2011 Goals Goal Patient Goal Type Associated Problems Recent Progress Patient-Stated? Author DH Home Medication Compliance and Understanding Patient Facing Action Plan On track( 017 10:41 AM EDT) Selena Scott, [facility] Note: Patient Goal: Clear hepatitis C Timeframe to meet goal: within 12 weeks of therapy Medical Devices Implanted Type Area Cloth Painter Device Identifier Shelf Expiration Date Model / Serial / Lot Organ Aquisition Renal Donor Kidney - [id number] Implanted:Qty : 1 on 09/16/2015 by Franko Larkin MD at [facility] IMPLANTS UNOS # [id number] / / Stent,Dbl-J,U ret,[id number] ([id number]) - [id number] Implanted:Qty : 1 on 09/16/2015 by Franko Larkin MD at [facility] IMPLANTS DO NOT USE Olympus Kassandra - Surgical Pro - [id number] / / Stent,Dbl-J,U ret,[id number] ([id number]) - [id number] Implanted:Qty : 1 on 05/20/2016 by Santosh Arredondo MD at [facility] IMPLANTS Left: Ureter DO NOT USE Olympus Kassandra - Surgical Pro - [id number] 05/28/2020 [id number] / / [id number] Cement,Bne,Sm artset,Ghv,40 g ([id number]) - [id number] Implanted:Qty : 2 on 11/25/2017 by Breezy Dale MD at [facility] IMPLANTS Right: Knee DO NOT USE Depuy Student Dean - 3527 05/05/2019 [id number] / / [id number] Base,Atun,Tib ,Fb,Cmnt,Sz8 ([id number]) (Autoreq) - [id number] Implanted:Qty : 1 on 11/25/2017 by Brezey Dale MD at [facility] IMPLANTS Right: Knee DO NOT USE Depuy Student Dean - 3527 07/05/2027 [id number] / / [id number] MackRamón, Mdl,Dome,41mm ([id number]) (Autoreq) - [id number] Implanted:Qty : 1 on 11/25/2017 by Breezy Dale MD at [facility] IMPLANTS Right: Knee DO NOT USE Depuy Student Dean - 3527 09/02/2022 [id number] / / [id number] [place],Attune, Fem,Cr,Sz8,Rt ([id number]) (Autoreq) - [id number] Implanted:Qty : 1 on 11/25/2017 by Breezy Dale MD at [facility] IMPLANTS Right: Knee DO NOT USE Depuy Student Dean - 3527 06/04/2027 [id number] / / [id number] Inser,Attune, Cr,Fb,Sz8,5mm ([id number]) (Autoreq) - [id number] Implanted:Qty : 1 on 11/25/2017 by Breezy Dale MD at [facility] IMPLANTS Right: Knee DO NOT USE Depuy Student Dean - 3527 09/02/2022 1516-20-805 / / [id number] Putty,Bone,Pr ogenix,Dbm,5c c ([id number]) - [id number] Implanted:Qty : 1 on 05/10/2020 by Joseph Ang MD at [facility] IMPLANTS Left: Spine Lumbar [employer] - MEDTRONIC [id number] 01/11/2021 [id number] / [id number] / [id number] Mdt: 5076: [id number]/ 29/2022 Implanted: by Jay Urban MD (Quantity not on file) Lead Heart Medtronic - [id number] / [id number] / t: 5076: [id number]/ 29/2022 Implanted: by Jay Urban MD (Quantity not on file) Lead Heart Medtronic - [id number] / [id number] / t: [id number]: [id number]/ 29/2022 Implanted: by Jay Urban MD (Quantity not on file) Pacemaker Chest Medtronic - [id number] / [id number] / Procedures Procedure Name Priority Date/Time Associated Diagnosis Comments PRO PM INTERROGATION REMOTE UP TO 90 DAYS Routine 12/05/2023 12:38 AM EDT COMPREHENSIVE METABOLIC PANEL Routine 10/10/2022 8:22 AM EDT H/O kidney transplant 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 current use of 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 drug Vitamin D deficiency HC HEMOGLOBIN A1C Routine 03/18/2022 10: 58 AM EDT H/O kidney transplant Vitamin D deficiency 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 current use of 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 drug from Last 3 Months or Most Recently Relevant to Health Maintenance Results * Cardiac Device Check - Remote (12/05/2023 12:38 AM EDT) Anatomical Region Laterality Modality Other 12/05/2023 12:3 8 AM EDT Ryley Vargas MD IMPLANTABLE CARDIAC DEVICE * (ABNORMAL) Comprehensive metabolic panel (non-fasting) (10/10/2022 8:22 AM EDT) Glucose 183 65 - 199 mg/dL [facility] Comment:Diabetes: >=200 mg/d L plus symptoms Blood Urea Nitrogen 15 10 - 20 mg/dL [facility] Creatinine 1.26 0.80 - 1.50 mg/dL [facility] Sodium 143 135 - 145 mmol/L [facility] Potassium 4.2 3.5 - 5.0 mmol/L [facility] Comment: Please note: ??Patients with WBC >100,000 may have falsely elevated Potassium levels. ??For accurate Potassium quantification in these patients send serum separator tube (gold top) for subsequent determinations. ??Contact the Clinical Chemistry Laboratory if there are any questions. Chloride 104 98 - 107 mmol/L [facility] Carbon Dioxide 28 22 - 31 mmol/L [facility] Anion Gap 11 5 - 15 mmol/L [facility] Calcium 9.9 8.5 - 10.5 mg/dL [facility] Protein, Total 7.2 6.1 - 8.0 g/dL [facility] Albumin 4.2 3.2 - 5.2 g/dL [facility] Aspartate Aminotransferase 22 0 - 39 unit/L [facility] Alanine Aminotransferase 22 0 - 55 unit/L [facility] Alkaline Phosphatase 84 40 - 130 unit/L [facility] Bilirubin, Total 2.0(H) 0.2 - 1.3 mg/dL [facility] Est Glomerular Filtration Rate 60 >=60 mL/min/1. 73 m?? [facility] Comment: This patient's estimated GFR was calculated using the 2020 CKD-EPI equation. The estimated GFR can vary from the measured GFR by up to 30% in the absence of rapidly changing kidney function. Assessment of the estimated GFR is not appropriate when creatinine concentrations are rapidly changing. For clinical situations in which a more precise estimate of GFR is necessary, consider alternative methods of GFR estimation such as a 24-hour urine creatinine clearance. Assignment of CKD stage 1-5 for patients with an eGFR near the transition point between stages may be based on clinical assessment of muscle mass and symptoms in addition to eGFR. Blood 10/10/2022 8:22 AM EDT 10/10/2022 8:26 AM EDT Narrative Resulting Agency Comment Spec In Lab Gurdeep Boston WOOD MACHINE CARVER CHEMISTRY ORDERABLES [facility] [place] [address] * (ABNORMAL) Hemoglobin A1c (03/18/2022 10:58 AM EDT) Hemoglobin A1c 6.6(H) 4.3 - 5.6 % [facility] Comment: Reference Range: 4.3 - 5.6% 5.7 - 6.4% - Increased Risk of Developing Diabetes Mellitus >= 6.5% - Consistent with diagnosis of Diabetes Mellitus In the absence of hyperglycemia (i.e. plasma glucose > 200 mg/dL) or classic symptoms of hyperglycemia a repeat measurement of HbA1c should be performed on a separate sample to confirm the diagnosis. Diagnosis and Classification of Diabetes Mellitus, Diabetes Care 2013; 36: Suppl. 1, T47-51 Estimated Average Glucose See note mg/dL [facility] Comment: Estimated Average Glucose not appropriate for patients over 70 years of age. eAG equivalents for HbA1c percentages: HbA1c(%) ?eAG(mg/dL) 6.0 ?126 6.5 ?140 7.0 ?154 7.5 ?169 8.0 ?183 8.5 ?197 9.0 ?212 9.5 ?226 10.0 ? 240 Limitations: The eAG calculation has not been validated on women, individuals below 18 years old and above 70 years old, and individuals with hemoglobinopathies. Additional resources are available on the ADA website. Harjeet MENDOSA, Chanel J, Philip R, et al. ??Translating the A1C assay into estimated average glucose values. ??Diabetes Care 2008:31(8):6557-0916. Blood 03/18/2022 10:5 8 AM EDT 03/18/2022 11:17 AM EDT Narrative Resulting Agency Comment Spec In Lab Tal Eagle MD CHEMISTRY ORDERAB LES [facility] [address] [place] [address] from Last 3 Months or Most Recently Relevant to Health Maintenance Advance Directives Documents on File Type Date Recorded Patient Automatic Pinsetter Adjuster Expl anation Personal Automatic Pinsetter Adjuster 04/23/2020 11:55 AM Mara Bolden Advance Directives and Living Will 11/04/2017 2:58 PM 11/04/17 * Attempt Cardiopulmonary Resuscitation - Inpatient (Latest Code Status on File) Date Activated Date Inactivated Comments 09/14/2022 8:55 PM 09/19/2022 5:51 PM Question Answer Comments Code Status decision made by: Patient * Attempt Cardiopulmonary Resuscitation - Inpatient Date Activated Date Inactivated Comments 05/08/2022 1:20 PM 05/09/2022 2:00 PM Question Answer Comments Code Status decision made by: Patient * Attempt Cardiopulmonary Resuscitation - Inpatient Date Activated Date Inactivated Comments 01/30/2022 7:25 PM 02/01/2022 6:17 PM Question Answer Comments Code Status decision made by: Patient * Attempt Cardiopulmonary Resuscitation - Inpatient Date Activated Date Inactivated Comments 05/10/2020 7:17 AM 05/11/2020 3:51 PM Question Answer Comments Code Status decision made by: Patient * Full Code Date Activated Date Inactivated Comments 02/07/2019 3:00 AM 02/11/2019 3:53 PM Question Answer Comments Does patient have capacity to make decision: Yes Care Teams Industrial/Organizational Psychologist Relationship Specialty Start Date End Date Urbano Jimenez DO [address] [place] [address] PCP - General Family Medicine 03/18/22 Ruchi Valles RN Nurse Clinic Transplant Surgery 07/30/15
--- OUTSIDE RECORDS SUMMARY | 2024-02-14 11:14 | XMS_ITS | Encounter Summary ---
Author Organization [facility] Address [address] [place] [address] Care Team Providers Care University Controller Name Role Phone Urbano Denis DO Primary Care Provider [phone] Encounter Details Date Type Department Care Team (Late st Contact Info) Description 11/09/2014 Abstract [facility] - [address] [place], [place] [address] Que Lewis MD [address] [place] [id number] Social History Tobacco Use Types Packs/Day [...] Procedure Name Priority Date/Time Associated Diagnosis Comments PTH INTACT Routine 11/08/2014 documented in this encounter Results * PTH INTACT (11/08/2014) PTH, External [facility] Blood specimen (specimen) 11/08/2014 Que Lewis MD CHEMISTRY & BLOOD GAS ORDERABLES [facility] documented in this encounter Visit Diagnoses Not on filedocumented in this encounter Care Teams University Controller Relationship Specialty Start Date End Date Urbano Denis DO [address] [place] [address] PCP - General 09/27/14 documented as of this encounter
--- OUTSIDE RECORDS SUMMARY | 2024-02-14 11:14 | XMS_ITS | Encounter Summary ---
[facility] [place] [address] Care Team Providers Care Striker Off Name Role Phone Urbano Jimenez DO Primary Care Provider [phone] Encounter Details Date Type Department Care Team (Late st Contact Info) Description 09/30/2023 Telephone [place] [id number] Barbara Josue Social History Tobacco Use Types Packs/Day Years Used Date Smoking Tobacco: Light Smoker Cigars Smokeless Tobacco: Never Comments:cigars, one weekly Alcohol Use Standard Drinks/Week Comments No 0 (1 standard drink = 0.6 oz pur e alcohol) [facility] Inpatient Questions Answer Date Recorded Does Anyone [...] * Telephone Encounter - Barbara Josue - 09/30/2023 3:11 PM EDT usan called with concerns about Yash's stomach is huge. Not in pain, no fever. Does have diarrhea, probably from the antibiotic. He's very tired. Recently was at [facility] for a couple of nights with diverticulitis. 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 Was given tramadol but hasn't had any for a couple of days. Her # [phone] documented in this encounter Plan of Treatment Upcoming Encounters Date Type Department Care Team (Late st Contact Info) Description 04/15/2024 10:00 AM EDT Hospital Encounter [place] [address] Arrived documented as of this encounter Goals Goal Patient Goal Type Associated Problems Recent Progress Patient-Stated? Author DH Home Medication Compliance and Understanding Patient Facing Action Plan On track( 017 10:41 AM EDT) Selena Scott, [facility] Note: Patient Goal: Clear hepatitis C Timeframe to meet goal: within 12 weeks of therapy documented as of this encounter Visit Diagnoses Not on filedocumented in this encounter Care Teams Striker Off Relationship Specialty Start Date End Date Urbano Jimenez DO [address] [place] [address] PCP - General Family Medicine 03/18/22 Ruchi Valles RN Nurse Clinic Transplant Surgery 07/30/15 documented as of this encounter
--- OUTSIDE RECORDS SUMMARY | 2024-02-14 11:15 | XMS_ITS | Encounter Summary ---
Author [facility] [place] [address] Care Team Providers Care Photogrammetry Airplane Pilot Name Role Phone Urbano Jimenez Ray KIRBY Primary Care Provider [phone] Reason for Visit * Reason Comments Medication Refill Encounter Details Date Type Department Care Team (Late st Contact Info) Description 03/27/2023 Refill Cardiology at [address] [address] Byron Brown MD [facility] [place] [address] Medication Refill Social History Tobacco Use Types Packs/Day Years Used Date Smoking Tobacco: Light Smoker Cigars Smokeless Tobacco: Never Comments:cigars, one weekly Alcohol Use Standard Drinks/Week Comments No 0 (1 standard drink = 0.6 oz pur e alcohol) [facility] In[facility] Questions Answer Date Recorded Does [...] AM EDT Hospital Encounter Non-Invasive [place] [address] Arrived documented as of this encounter Goals Goal Patient Goal Type Associated Problems Recent Progress Patient-Stated? Author DH Home Medication Compliance and Understanding Patient Facing Action Plan On track( 017 10:41 AM EDT) Selena Scott, [facility] Note: Patient Goal: Clear hepatitis C Timeframe to meet goal: within 12 weeks of therapy documented as of this encounter Visit Diagnoses Diagnosis Atrial fibrillation with RVR - had flutter initially, then fib Atrial fibrillation documented in this encounter Care Teams Photogrammetry Airplane Pilot Relationship Specialty Start Date End Date Urbano Jimenez DO [address] [place] [address] PCP - General Family Medicine 03/18/22 Ruchi Valles RN Nurse Clinic Transplant Surgery 07/30/15 documented as of this encounter
--- OUTSIDE RECORDS SUMMARY | 2024-02-14 11:15 | XMS_ITS | Encounter Summary ---
Author Organization [facility] [place] [address] Care Team Providers Care Neck Pinner Name Role Phone Urbano Jimenez DO Primary Care Provider [phone] Reason for Visit * Reason Comments Medication Refill Encounter Details Date Type Department Care Team (Late st Contact Info) Description 11/13/2022 Refill [place] [address] Tal Eagle MD [facility] [place] [address] H/O kidney transplant; Aftercare following organ transplant; Other complication of kidney transplant; Vitamin D deficiency Social History Tobacco Use Types Packs/Day Years Used Date Smoking Tobacco: Light Smoker Cigars Smokeless Tobacco: Never Comments:cigars, one weekly Alcohol Use Standard Drinks/Week Comments No 0 (1 standard drink = 0.6 oz pur e alcohol) [facility] Inpatient Questions Answer Date Recorded Does Anyone [...] AM EDT Hospital Encounter Non-Invasive [place] [address] Arrived documented as of this encounter Goals Goal Patient Goal Type Associated Problems Recent Progress Patient-Stated? Author DH Home Medication Compliance and Understanding Patient Facing Action Plan On track( 017 10:41 AM EDT) Selena Scott, [facility] Note: Patient Goal: Clear hepatitis C Timeframe to meet goal: within 12 weeks of therapy documented as of this encounter Visit Diagnoses Diagnosis H/O kidney transplant Kidney replaced by transplant Aftercare following organ transplant Other complication of kidney transplant Vitamin D deficiency Unspecified vitamin D deficiency documented in this encounter Care Teams Neck Pinner Relationship Specialty Start Date End Date Urbano Jimenez DO [address] [place] [address] PCP - General Family Medicine 03/18/22 Ruchi Valles RN Nurse Clinic Transplant Surgery 07/30/15 documented as of this encounter
--- OUTSIDE RECORDS SUMMARY | 2024-02-14 11:15 | XMS_ITS | Encounter Summary ---
[facility] [place] [address] Care Team Providers Care Commander Internal Affairs Name Role Phone Urbano Jimenez Ray KIRBY Primary Care Provider [phone] Reason for Visit * Reason Onset Date Comments Medication Refill 05/29/2023 Encounter Details Date Type Department Care Team (Late st Contact Info) Description 05/29/2023 Refill Solid Organ [place] [address] Tal Eagle MD [facility] [place] [address] Prophylactic immunotherapy; H/O kidney transplant Social History Tobacco Use Types [...] AM EDT Hospital Encounter Non-Invasive [place] [address] Arrived documented as of this encounter Goals Goal Patient Goal Type Associated Problems Recent Progress Patient-Stated? Author DH Home Medication Compliance and Understanding Patient Facing Action Plan On track( 017 10:41 AM EDT) Selena Scott, [facility] Note: Patient Goal: Clear hepatitis C Timeframe to meet goal: within 12 weeks of therapy documented as of this encounter Visit Diagnoses Diagnosis Prophylactic immunotherapy Need for prophylactic immunotherapy H/O kidney transplant Kidney replaced by transplant documented in this encounter Care Teams Commander Internal Affairs Relationship Specialty Start Date End Date Urbano Jimenez DO [address] [place] [address] PCP - General Family Medicine 03/18/22 Ruchi Valles RN Nurse Clinic Transplant Surgery 07/30/15 documented as of this encounter
--- OUTSIDE RECORDS SUMMARY | 2024-02-14 11:15 | XMS_ITS | Encounter Summary ---
Author Organization [facility] Address [facility] [place] [address] Care Team Providers Care Marketing Development Specialist Name Role Phone Urbano Jimenez Ray KIRBY Primary Care Provider [phone] Reason for Visit * Reason Onset Date Comments Medication Refill 05/26/2023 Encounter Details Date Type Department Care Team (Late st Contact Info) Description 05/26/2023 Refill Solid [place] [address] Tal Eagle MD [facility] [place] [address] H/O kidney transplant; Aftercare following organ transplant; Other complication of kidney transplant; Vitamin D deficiency Social History Tobacco Use Types Packs/Day Years Used Date Smoking Tobacco: Light Smoker Cigars Smokeless Tobacco: Never Comments:cigars, one weekly Alcohol Use Standard Drinks/Week Comments No 0 (1 standard drink = 0.6 oz pur e alcohol) [facility] Inpatient Questions Answer Date Recorded Does Anyone [...] AM EDT Hospital Encounter Non-Invasive [place] [address] Arrived documented as of this encounter Goals Goal Patient Goal Type Associated Problems Recent Progress Patient-Stated? Author DH Home Medication Compliance and Understanding Patient Facing Action Plan On track( 017 10:41 AM EDT) Selena Scott, [facility] Note: Patient Goal: Clear hepatitis C Timeframe to meet goal: within 12 weeks of therapy documented as of this encounter Visit Diagnoses Diagnosis H/O kidney transplant Kidney replaced by transplant Aftercare following organ transplant Other complication of kidney transplant Vitamin D deficiency Unspecified vitamin D deficiency documented in this encounter Care Teams Marketing Development Specialist Relationship Specialty Start Date End Date Urbano Jimenez DO [address] [place] [address] PCP - General Family Medicine 03/18/22 Ruchi Valles RN Nurse Clinic Transplant Surgery 07/30/15 documented as of this encounter
--- OUTSIDE RECORDS SUMMARY | 2024-02-14 11:15 | XMS_ITS | Encounter Summary ---
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; Vitamin D deficiency Social History Tobacco Use [...] AM EDT Hospital Encounter Non-[place] [address] Arrived Scheduled Orders Name Type Priority Associated Diagnoses Orde r Schedule CBC (with Diff) Lab Routine H/O kidney transplant Other complication of kidney transplant [facility] current use of 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 drug Vitamin D deficiency Expected: 08/05/2023, Expires: 02/02/2025 Hemoglobin A1c Lab Routine H/O kidney transplant Other complication of kidney transplant 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 Vitamin D deficiency Expected: 08/06/2023 (Approximate), Expires: 08/05/2024 Reticulocyte Count Lab Routine H/O kidney transplant Other complication of kidney transplant 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 Vitamin D deficiency Expected: 08/05/2023, Expires: 02/02/2025 Comprehensive metabolic panel (non-fasting) Lab Routine H/O kidney transplant Other complication of kidney transplant 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 Vitamin D deficiency Expected: 08/05/2023, Expires: 02/02/2025 Lipid Panel (Reflex Direct LDL) Lab Routine H/O kidney transplant Other complication of kidney transplant 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 Vitamin D deficiency Expected: 08/05/2023, Expires: 02/02/2025 Phosphorus Lab Routine H/O kidney transplant Other complication of kidney transplant [facility] current use of 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 drug Vitamin D deficiency Expected: 08/05/2023, Expires: 02/02/2025 Magnesium Lab Routine H/O kidney transplant Other complication of kidney transplant [facility] current use of 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 drug Vitamin D deficiency Expected: 08/05/2023, Expires: 02/02/2025 Uric acid Lab Routine H/O kidney transplant Other complication of kidney transplant 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 Vitamin D deficiency Expected: 08/05/2023, Expires: 02/02/2025 PTH Lab Routine H/O kidney transplant Other complication of kidney transplant [facility] current use of 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 drug Vitamin D deficiency Expected: 08/05/2023, Expires: 02/02/2025 Vitamin D, 25-Hydroxy Lab Routine H/O kidney transplant Other complication of kidney transplant 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 Vitamin D deficiency Expected: 08/05/2023, Expires: 02/02/2025 1,25-dihydroxycholecalci ferol Lab Routine H/O kidney transplant Other complication of kidney transplant 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 Vitamin D deficiency Expected: 08/05/2023, Expires: 02/02/2025 Urinalysis with reflex Culture Lab Routine H/O kidney transplant Other complication of kidney transplant [facility] current use of 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 drug Vitamin D deficiency Expected: 08/06/2023 (Approximate), Expires: 08/05/2024 Protein/Creatinine Ratio, urine Lab Routine H/O kidney transplant Other complication of kidney transplant 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 Vitamin D deficiency Expected: 08/05/2023, Expires: 02/02/2025 Calcium Creatinine Ratio, random urine Lab Routine H/O kidney transplant Other complication of kidney transplant 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 Vitamin D deficiency Expected: 08/05/2023, Expires: 02/02/2025 Creatinine, urine, random Lab Routine H/O kidney transplant Other complication of kidney transplant 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 Vitamin D deficiency Expected: 08/05/2023, Expires: 02/02/2025 Magnesium, urine, random Lab Routine H/O kidney transplant Other complication of kidney transplant 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 Vitamin D deficiency Expected: 08/05/2023, Expires: 02/02/2025 Phosphorus, urine, random Lab Routine H/O kidney transplant Other complication of kidney transplant [facility] current use of 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 drug Vitamin D deficiency Expected: 08/05/2023, Expires: 02/02/2025 Gold Tube HOLD Lab Routine H/O kidney transplant Other complication of kidney transplant [facility] current use of 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 drug Vitamin D deficiency Expected: 08/05/2023, Expires: 02/02/2025 Lavender Tube HOLD Lab Routine H/O kidney transplant Other complication of kidney transplant [facility] current use of 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 drug Vitamin D deficiency Expected: 08/05/2023, Expires: 02/02/2025 Tacrolimus level Lab Routine H/O kidney transplant Other complication of kidney transplant 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
--- OUTSIDE RECORDS SUMMARY | 2024-02-14 11:15 | XMS_ITS | Encounter Summary ---
Author Organization [facility] [place] [address] Care Team Providers Care Balance Recesser Name Role Phone TonyUrbano DO Primary Care Provider Encounter Details Date Type Department Care Team (Late st Contact Info) Description 09/20/2022 Telephone [place] [phone] Noelle Hoffman MD [facility] [place] [address] Social History Tobacco Use Types Packs/Day Years Used Date Smoking Tobacco: Light Smoker Cigars Smokeless Tobacco: Never Comments:cigars, one weekly Alcohol Use Standard Drinks/Week Comments No 0 (1 standard drink = 0.6 oz pur e alcohol) [facility] Inpatient Questions Answer Date Recorded [...] encounter Miscellaneous Notes * Telephone Encounter - Noelle Hoffman MD - 09/20/2022 11:41 AM EDT Called by of Mr. Bolden at 11:42 AM that the prescription for Augmentin although says went to [facility] in [place], [place] in the system, the prescription was actually sent to [facility] so the [facility] pharmacy does not have the order to fill his Augmentin. From eDH I can see the Augmentin WAS sent to the [facility] pharmacy. I called [facility] in [place], [place] directly. There is an issue withprocessing through insurance so they will call the insurance but at this time they are able to fillthe prescription for Mr. Bolden now. Noelle Hoffman MD 09/20/22 General Surgery Resident documented in this encounter Plan of Treatment Upcoming Encounters Date Type Department Care Team (Late st Contact Info) Description 04/15/2024 10:00 AM EDT Hospital Encounter Non-[place] [address] Arrived documented as of this encounter Goals Goal Patient Goal Type Associated Problems Recent Progress Patient-Stated? Author DH Home Medication Compliance and Understanding Patient Facing Action Plan On track( 017 10:41 AM EDT) No Selena Cisneros, [facility] Note: Patient Goal: Clear hepatitis C Timeframe to meet goal: within 12 weeks of therapy documented as of this encounter Visit Diagnoses Not on filedocumented in this encounter Care Teams Balance Recesser Relationship Specialty Start Date End Date Urbano Jimenez DO [address] [place] [address] PCP - General Family Medicine 03/18/22 Ruchi Valles RN Nurse Clinic Transplant Surgery 07/30/15 documented as of this encounter
--- OUTSIDE RECORDS SUMMARY | 2024-02-14 11:15 | XMS_ITS | Encounter Summary ---
[place] [address] Care Team Providers Care Form Block Maker Name Role Phone Urbano Jimenez DO Primary Care Provider [phone] Encounter Details Date Type Department Care Team (Latest Contact Info) Description 07/20/2023 10:00 AM EST - 07/20/2023 11:59 PM [facility] Hospital Encounter Non-[place]vasive [place] [address] Discharge Disposition: Home Social History Tobacco Use Types Packs/Day Years Used Date Smoking Tobacco: Light Smoker Cigars Smokeless Tobacco: Never Comments:cigars, one weekly Alcohol Use Standard Drinks/Week Comments No 0 (1 standard drink = 0.6 oz pur e alcohol) [facility] Inpatient Questions Answer Date [...] Sig Dispensed Refills Start Date End Date Magnesium Gluconate (Mag-G) 27 mg magnesium (500 [...] Tablet Take 137 mcg by mouth daily. metoprolol succinate XL (Toprol-XL) 50 mg ER 24 hr tabletIndications:Atrial fibrillation with RVR Take 1 tablet by mouth 2 times daily. 180 tablet 1 07/08/2023 08/31/2023 mycophenolate (Cellcept) 250 mg capsuleIndications:H/O kidney transplant Take 1 capsule by mouth 2 times daily. 60 capsule 3 06/01/2023 08/13/2023 tacrolimus (Prograf) 1 mg IR capsuleIndications:H/O kidney transplant Take 1 capsule by mouth 2 times daily. 60 capsule 3 06/01/2023 08/13/2023 calciTRIoL (Rocaltrol) 0.5 mcg capsuleIndications:H/O kidney transplant,Other complication of kidney transplant Take 1 capsule by mouth daily. 90 capsule 1 05/26/2023 12/02/2023 documented as of this encounter Plan of Treatment Upcoming Encounters Date Type Department Care Team (Late st Contact Info) Description 04/15/2024 10:00 AM EDT Hospital Encounter Non-[place] [address] Arrived documented as of this encounter Goals Goal Patient Goal Type Associated Problems Recent Progress Patient-Stated? Author DH Home Medication Compliance and Understanding Patient Facing Action Plan On track( 017 10:41 AM EDT) Selena Scott, [facility] Note: Patient Goal: Clear hepatitis C Timeframe to meet goal: within 12 weeks of therapy documented as of this encounter Procedures Procedure Name Priority Date/Time Associated Diagnosis Comments PRO PM INTERROGATION REMOTE UP TO 90 DAYS Routine 06/02/2023 2:49 AM EST documented in this encounter Results * Cardiac Device Check - Remote (06/02/2023 2:49 AM EST) Anatomical Region Laterality Modality Other 06/02/2023 2:49 AM EST Nikolas Loving MD IMPLANTABLE CARDIAC DEVICE documented in this encounter Visit Diagnoses Not on filedocumented in this encounter Care Teams Form Block Maker Relationship Specialty Start Date End Date Urbano Jimenez DO [address] [place] [address] PCP - General Family Medicine 03/18/22 Ruchi Valles RN Nurse Clinic Transplant Surgery 07/30/15 documented as of this encounter
--- OUTSIDE RECORDS SUMMARY | 2024-02-14 11:15 | XMS_ITS | Encounter Summary ---
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 Author DH Home Medication Compliance and Understanding Patient Facing Action Plan On track( 017 10:41 AM EDT) Selena Scott, 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 Vitamin D deficiency BKV QUANT BLOOD Routine 10/10/2022 8:22 AM EDT 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 Vitamin D deficiency HEMOGRAM Routine 10/10/2022 8:22 AM EDT H/O kidney transplant USP current use of 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 drug Vitamin D deficiency DIFFERENTIAL, AUTOMATED Routine 10/10/2022 8:22 AM EDT 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 Vitamin D deficiency HC FK-506 (TACROLIMUS) Routine 10/10/2022 8:22 AM EDT H/O kidney transplant USP current use of 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 drug Vitamin D deficiency HC RETIC,AUTO INCLUDES RETHE & IRF Routine 10/10/2022 8:22 AM EDT 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 Vitamin D deficiency HC CBC,PLT & AUTO DIFF Routine 10/10/2022 8:22 AM EDT 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 Vitamin D deficiency HC URIC ACID, SERUM Routine 10/10/2022 8 :22 AM EDT H/O kidney transplant USP current use of 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 drug Vitamin D deficiency HC PHOSPHORUS, SERUM Routine 10/10/2022 8:22 AM EDT 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 Vitamin D deficiency HC MAGNESIUM, SERUM Routine 10/10/2022 8 :22 AM EDT H/O kidney transplant USP current use of 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 drug Vitamin D deficiency LIPID PANEL (REFLEX DIRECT LDL) Routine 10/10/2022 8:22 AM EDT 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 Vitamin D deficiency COMPREHENSIVE METABOLIC PANEL Routine 10/10/2022 8:22 AM EDT 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 Vitamin D deficiency documented in this encounter Results * Urinalysis Microscopic Exam (10/10/2022 9:02 AM EDT) RBC, Urine 1 0 - 3 /HPF [facility] WBC, Urine 1 0 - 3 /HPF [facility] Clean Catch Urine 10/10/2022 9:02 AM EDT 10/10/2022 9:08 AM EDT Narrative Resulting Agency Comment Spec In Lab Gurdeep L Ludy LAZARO URINE ORDERABLES [facility] [place] [address] * (ABNORMAL) Urinalysis with reflex Culture (10/10/2022 9:02 AM EDT) Glucose, Urine Dipstick Negative Negative mg/dL [facility] Protein, Urine Dipstick Trace(A) Negative mg/dL [facility] Bilirubin, Urine Dipstick Negative Negative mg/dL [facility] Comment: Clinical correlation required for positive Urine Bilirubin results as false positive may occur with some drugs and drug related products. If a false positive is suspected a serum total bilirubin should be considered if clinically indicated. Urobilinogen, Urine Dipstick Normal Normal mg/dL [facility] pH, Urn (dipstick) 7.0 5.0 - 8.0 [facility] Blood, Urine Dipstick Negative Negative mg/dL [facility] Ketone, Urine Dipstick Negative Negative mg/dL [facility] Nitrite, Urine Dipstick Negative Negative [facility] Leukocytes, Urine Dipstick Negative Negative mcL [facility] Appearance, Urine Dipstick Clear Clear [facility] Specific [place] Urine Automated 1.018 1.005 - 1.030 [facility] Color, Urine Dipstick Yellow Yellow [facility] Reflex to Culture No [facility] Clean Catch Urine 10/10/2022 9:02 AM EDT 10/10/2022 9:08 AM EDT Narrative Resulting Agency Comment Spec In Lab Gurdeep Boston PERIPHERAL EDP EQUIPMENT OPERATOR URINE ORDERABLES Performing Organization Address [facility] Co de Phone Number [facility] [place] [address] * (ABNORMAL) Protein/Creatinine Ratio, urine (10/10/2022 9:02 AM EDT) Creatinine, Urine 86 mg/dL [facility] Protein, Urine 20(H) 0 - 12 mg/dL [facility] Protein / Creatinine Ratio, Urine 0.2 ratio [facility] Urine 10/10/2022 9:02 AM EDT 10/10/2022 9:08 AM EDT Narrative Resulting Agency Comment Spec In Lab Gurdeep Boston PERIPHERAL EDP EQUIPMENT OPERATOR URINE ORDERABLES Performing Organization Address City/[facility]/ZIP Co de Phone Number [facility] [place] [address] * (ABNORMAL) Differential, Automated (10/10/2022 8:22 AM EDT) Neutrophil % 61.5 % [facility] Neutrophil Absolute 5.49 1.70 - 6.10 x10(3)/mc L [facility] Lymph % 18.9 % [facility] Lymphocytes Abs 1.7 0.9 - 3.2 x10(3)/mc L [facility] Monocyte % 8.3 % [facility] Monocyte Abs 0.7 0.3 - 0.9 x10(3)/mc L [facility] Eos % 10.1 % [facility] Eosinophils Abs 0.9(H) 0.0 - 0.4 x10(3)/mc L [facility] Basophil % 1.0 % [facility] Baso Absolute 0.1 0.0 - 0.1 x10(3)/mc L [facility] Immature Gran % 0.20 % [facility] Comment: Immature granulocytes(IG's)percentage and absolute count will include metamyelocytes, myelocytes, and promyelocytes. Blood smears from CBCs yielding IG's will be scanned manually for concordance. If this scan disagrees with the automated IG or if promyelocytes are noted, a manual differential will be performed. Immature Gran Absolute 0.02 0.00 - 0.04 x10(3)/ L [facility] Blood 10/10/2022 8:22 AM EDT 10/10/2022 8:26 AM EDT Narrative Resulting Agency Comment Spec In Lab Gurdeep Boston PERIPHERAL EDP EQUIPMENT OPERATOR HEMATOLOGY ORDERABLE S Performing Organization Address City/State/[facility] Co de Phone Number [facility] [place] [address] * (ABNORMAL) Hemogram (10/10/2022 8:22 AM EDT) White Blood Cell 8.9 4.0 - 9.5 x10(3)/mc L [facility] Red Blood Cell 4.54(L) 4.58 - 5.54 x10(6)/mc L [facility] Hemoglobin 13.8 13.7 - 16.5 g/dL [facility] Hematocrit 40.2(L) 40.5 - 48.5 % [facility] Mean Cell Volume 88.5 82.9 - 93.1 fL [facility] Mean Cell Hemoglobin 30.4 27.5 - 32.1 pg [facility] Mean Cell Hemoglobin Concentration 34.3 32.0 - 35.7 g/dL [facility] Platelet 275 145 - 357 x10(3)/mc L [facility] RDW Standard Deviation 42.9 36.0 - 45.0 fL [facility] RDW coefficient of variation 13.4 11.4 - 13.8 % [facility] Mean Platelet Volume 9.9 7.6 - 12.9 fL [facility] NRBC% auto 0.0 % [facility] NRBC Absolute 0.000 0.000 - 0.000 x10(3)/mc L [facility] Blood 10/10/2022 8:22 AM EDT 10/10/2022 8:26 AM EDT Narrative Resulting Agency Comment Spec In Lab Gurdeep Cook Ludy LAZARO HEMATOLOGY ORDERABLE S Performing Organization Address [facility] Co de Phone Number [facility] [place] [address] * BKV Quant Blood (10/10/2022 8:22 AM EDT) BKV Blood Result Not Detected Not Detected IU/mL [facility] Comment: Indication for Study: Monitoring BKV DNA Analysis: The ester BKV test is an in vitro nucleic acid amplification tests using real-time polymerase chain reaction (PCR) assay for the quantitative measurement of BK virus (BKV) DNA in human EDTA plasma. Sample: EDTA plasma Method: ester BKV test used with the Topmission0 platform (Pawzii) Linear Range: 21.5 - 1.0 x 10^8 IU/mL (1.33 - 8.00 log IU/mL) Note: The Kirsten ester BKV assay has been cleared by the U.S. Food and Drug Administration for clinical testing. Blood 10/10/2022 8:22 AM EDT 10/10/2022 10:31 AM EDT Narrative Resulting Agency Comment Spec In Lab Gurdeep Cook Ludy LAZARO MOLECULAR ORDERABLES Performing Organization Address [facility] Co de Phone Number [facility] [place] [address] * (ABNORMAL) Reticulocyte Count (10/10/2022 8:22 AM EDT) Reticulocyte % 2.6 0.7 - 2.6 % [facility] Retic Abs # 0.120 0.030 - 0.120 x10(6)/mcL [facility] Immature Retic% 17.8(H) 0.0 - 15.6 % [facility] Reticulated Hgb 34.4 31.3 - 40.2 pg [facility] Blood 10/10/2022 8:22 AM EDT 10/10/2022 8:26 AM EDT Narrative Resulting Agency Comment Spec In Lab Gurdeep Boston PERIPHERAL EDP EQUIPMENT OPERATOR HEMATOLOGY ORDERABLE S [facility] [place] [address] * (ABNORMAL) Comprehensive metabolic panel (non-fasting) (10/10/2022 8:22 AM EDT) Glucose 183 65 - 199 mg/dL [facility] Comment:Diabetes: >=200 mg/d L plus symptoms Blood Urea Nitrogen 15 10 - 20 mg/dL [facility] Creatinine 1.26 0.80 - 1.50 mg/dL [facility] Sodium 143 135 - 145 mmol/L [facility] Potassium 4.2 3.5 - 5.0 mmol/L [facility] Comment: Please note: ??Patients with WBC >100,000 may have falsely elevated Potassium levels. ??For accurate Potassium quantification in these patients send serum separator tube (gold top) for subsequent determinations. ??Contact the Clinical Chemistry Laboratory if there are any questions. Chloride 104 98 - 107 mmol/L [facility] Carbon Dioxide 28 22 - 31 mmol/L [facility] Anion Gap 11 5 - 15 mmol/L [facility] Calcium 9.9 8.5 - 10.5 mg/dL [facility] Protein, Total 7.2 6.1 - 8.0 g/dL [facility] Albumin 4.2 3.2 - 5.2 g/dL [facility] Aspartate Aminotransferase 22 0 - 39 unit/L [facility] Alanine Aminotransferase 22 0 - 55 unit/L [facility] Alkaline Phosphatase 84 40 - 130 unit/L [facility] Bilirubin, Total 2.0(H) 0.2 - 1.3 mg/dL [facility] Est Glomerular Filtration Rate 60 >=60 mL/min/1. 73 m?? [facility] Comment: This patient's estimated GFR was [...] Agency Comment Spec In Lab Gurdeep Boston PERIPHERAL EDP EQUIPMENT OPERATOR CHEMISTRY ORDERABLES [facility] [place] [address] * Lipid Panel (Reflex Direct LDL) (10/10/2022 8:22 AM EDT) Cholesterol, Total 99 mg/dL [facility] Comment: Lower Risk: <200 mg/dL Average Risk: 200-239 mg/dL Higher Risk: >cu=907 mg/dL Triglyceride 197 mg/dL [facility] Comment: Average Risk/Lower Risk: <150 mg/dL Borderline High Risk: 150-199 mg/dL High Risk: 200-499 mg/dL Very High Risk: >jy=925 mg/dL HDL Cholesterol 35 mg/dL [facility] Comment: Males: ?? Higher Risk: <40 mg/dL Females: ?? Higher Risk: <50 mg/dL LDL Cholesterol 25 mg/dL [facility] Comment: Lowest Risk: <100 mg/dL Lower Risk: 100-129 mg/dL Borderline High Risk: 130-159 mg/dL High Risk: 160-189 mg/dL Very High Risk: >ve=845 mg/dL Cholesterol/HDL Ratio 2.8 ratio [facility] Lipid Interpretation See Note [facility] Comment: Lipid management should be guided by a patient? s ASCVD risk, goals and preferences. ACC/AHA Guidelines recommend high intensity statin if clinical ASCVD or LDL greater than or equal to 190 mg/dL. http://Pulask[employer] [email or web address]/CFJ-WHW-Mygthgbdd Adults aged 40-75 with LDL 70-189 mg/dL should have their 10 year ASCVD risk estimated with the ACC/AHA ASCVD risk auto body repair estimator http://tools.acc.org/IOSNL-Tyww-Vnyltxlxj/ Statin should be discussed if risk greater than or equal to 7.5% in non-diabetics. With diabetes, moderate intensity statin is recommended if risk less than 7.5%, high intensity if risk greater than or equal to 7.5%. Annual lipid monitoring on statins is not necessary. Evaluate secondary causes of Triglycerides greater than 500 mg/dL or LDL greater than 190 mg/dL: See table 6 of ACC/AHA Guideline. Lifestyle modification is a critical component of ASCVD risk reduction. Blood 10/10/2022 8:22 AM EDT 10/10/2022 8:26 AM EDT Narrative Resulting Agency Comment Spec In Lab Gurdeep Boston PERIPHERAL EDP EQUIPMENT OPERATOR CHEMISTRY ORDERABLES Performing Organization Address [facility] Co de Phone Number [facility] [place] [address] * Phosphorus (10/10/2022 8:22 AM EDT) Phosphorus 2.5 2.5 - 4.5 mg/dL [facility] Blood 10/10/2022 8:22 AM EDT 10/10/2022 8:26 AM EDT Narrative Resulting Agency Comment Spec In Lab Gurdeep Boston PERIPHERAL EDP EQUIPMENT OPERATOR CHEMISTRY ORDERABLES Performing Organization Address [facility]/ZIP Co de Phone Number [facility] [place] [address] * (ABNORMAL) Magnesium (10/10/2022 8:22 AM EDT) Magnesium 0.64(L) 0.69 - 1.07 mmol/L [facility] Blood 10/10/2022 8:22 AM EDT 10/10/2022 8:26 AM EDT Narrative Resulting Agency Comment Spec In Lab Gurdeep Boston PERIPHERAL EDP EQUIPMENT OPERATOR CHEMISTRY ORDERABLES [facility] [place] [address] * Uric acid (10/10/2022 8:22 AM EDT) Uric Acid 6.4 3.5 - 8.5 mg/dL [facility] Blood 10/10/2022 8:22 AM EDT 10/10/2022 8:26 AM EDT Narrative Resulting Agency Comment Spec In Lab Gurdeep Boston PERIPHERAL EDP EQUIPMENT OPERATOR CHEMISTRY ORDERABLES Performing Organization Address [facility] Co de Phone Number [facility] [place] [address] * Tacrolimus level (10/10/2022 8:22 AM EDT) Tacrolimus 6.2 ng/mL [facility] Comment: Trough therapeutic range is 3-15 ng/mL, depending upon transplant type, time since transplantation, use of other 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 drugs, comorbidities, and test method used. Tacrolimus concentration determined using the Kirsten Elecsys Tacrolimus electrochemiluminescence competitive immunoassay. Results from different samples types and methods are not interchangeable. Blood 10/10/2022 8:22 AM EDT 10/10/2022 8:26 AM EDT Narrative Resulting Agency Comment Spec In Lab Gurdeep Boston PERIPHERAL EDP EQUIPMENT OPERATOR CHEMISTRY ORDERABLES Performing Organization Address City/[facility] Co de Phone Number [facility] [place] [address] documented in this encounter Visit Diagnoses Diagnosis H/O kidney transplant Kidney replaced by transplant USP current use of 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 drug Vitamin D deficiency Unspecified vitamin D deficiency documented in this encounter Care Teams Wood Heel Flap Trimmer Relationship Specialty Start Date End Date Urbano Jimenez DO [address] [place] [address] PCP - General Family Medicine 03/18/22 Hai STANLEY,Ruchi Nurse Clinic Transplant Surgery 07/30/15 documented as of this encounter
--- OUTSIDE RECORDS SUMMARY | 2024-02-14 11:15 | XMS_ITS | Encounter Summary ---
Author Organization [facility] [place] [address] Care Team Providers Care Extrusion Press Adjuster Name Role Phone Urbano Jimenez Ray KIRBY Primary Care Provider [phone] Reason for Visit * Reason Comments Medication Refill Encounter Details Date Type Department Care Team (Late st Contact Info) Description 02/09/2023 Refill Cardiology at [address] [address] Byron Brown MD [facility] [place] [place] [address] Medication Refill Social History Tobacco Use Types Packs/Day Years Used Date Smoking Tobacco: Light Smoker Cigars Smokeless Tobacco: Never Comments:cigars, one weekly Alcohol Use Standard Drinks/Week Comments No 0 (1 standard drink = 0.6 oz pur e alcohol) [facility] Inpatient Questions Answer Date Recorded [...] AM EDT Hospital Encounter Non-Invasive [place] [address] Arrived documented as of this encounter Goals Goal Patient Goal Type Associated Problems Recent Progress Patient-Stated? Author DH Home Medication Compliance and Understanding Patient Facing Action Plan On track( 017 10:41 AM EDT) Selena Scott, [facility] Note: Patient Goal: Clear hepatitis C Timeframe to meet goal: within 12 weeks of therapy documented as of this encounter Visit Diagnoses Diagnosis Coronary artery disease Coronary atherosclerosis of unspecified type of vessel, [place] or graft documented in this encounter Care Teams Extrusion Press Adjuster Relationship Specialty Start Date End Date Urbano Jimenez DO [facility] [place] [address] PCP - General Family Medicine 03/18/22 Ruchi Valles RN Nurse Clinic Transplant Surgery 07/30/15 documented as of this encounter
--- OUTSIDE RECORDS SUMMARY | 2024-02-14 11:15 | XMS_ITS | Encounter Summary ---
Author Organization [facility] Address [facility] [place] [address] Care Team Providers Care Blood Collector Name Role Phone Urbano Jimenez Ray KIRBY Primary Care Provider [phone] Reason for Visit * Reason Onset Date Comments Medication Refill 10/13/2022 Encounter Details Date Type Department Care Team (Late st Contact Info) Description 10/13/2022 Refill [place] [address] Tal Eagle MD [facility] [place] [address] H/O kidney transplant; Aftercare following organ transplant; Hypertension secondary to other renal disorders Social History Tobacco Use Types Packs/Day Years Used Date Smoking Tobacco: Light Smoker Cigars Smokeless Tobacco: Never Comments:cigars, one weekly Alcohol Use Standard Drinks/Week Comments No 0 (1 standard drink = 0.6 oz pur e alcohol) [facility] Inpatient Questions Answer Date Recorded Does Anyone [...] AM EDT Hospital Encounter Non[place] [id number] Arrived documented as of this encounter Goals [...] replaced by transplant Aftercare following organ transplant Hypertension secondary to other renal disorders documented in this encounter Care Teams Blood Collector Relationship Specialty Start Date End Date Urbano Jimenez DO [address] [place] [address] PCP - General Family Medicine 03/18/22 Ruchi Valles RN Nurse Clinic Transplant Surgery 07/30/15 documented as of this encounter
--- OUTSIDE RECORDS SUMMARY | 2024-02-14 11:15 | XMS_ITS | Encounter Summary ---
Author Organization [facility] Address [facility] [place] [address] Care Team Providers Care Animation Director Name Role Phone Perrydeb Urbano Bell DO Primary Care Provider [phone] Encounter Details Date Type Department Care Team (Late st Contact Info) Description 10/22/2022 2:30 PM EDT Office Visit Cardiology at [address] [address] Byron Brown MD [facility] [place] [address] Cardiomyopathy, unspecified type Social History Tobacco Use Types Packs/Day Years Used Date Smoking Tobacco: Light Smoker Cigars Smokeless Tobacco: Never Comments:cigars, one weekly Alcohol Use Standard Drinks/Week Comments No 0 (1 standard drink = 0.6 oz pur e alcohol) [facility] Inpatient Questions Answer Date Recorded Does Anyone [...] Sign Reading Time Taken Comments Blood Pressure 129/63 10/22/2022 1:56 PM EDT Pulse 65 10/22/2022 1:56 PM EDT Temperature - - Respiratory Rate - - Oxygen Saturation 97% 10/22/2022 1:56 PM EDT Inhaled Oxygen Concentration - - Weight 98 kg (216 lb) 10/22/2022 1:56 PM EDT Height 180.3 cm (5' 11) 10/22/2022 1:56 PM EDT Body Mass Index 30.13 10/22/2022 1:56 PM EDT documented in this encounter Progress Notes * Byron Brown MD - 10/22/2022 2:30 PM EDT [facility] [place] [address] CARDIOLOGY/ VASCULAR OUTPATIENT NOTE Cody Bolden Urbano Jimenez, OFFICE VISIT : From my prior note (09/02/2022): Mr. Bolden is a 72 y/o M w/ PMH HTN, T2DM, ASCVD s/p PCI to OM, atrial fibrillation (s/p Watchman??due to intracranial bleed), tachy-sakina syndrome s/p PPM summer 2021, ESRD s/p renal transplant, prior CVA, diverticulitis who??has been having general malaise/fatigue.?This has been an issue previously - but he feels that this is worse since the time of the pacer implant (01/2022). ? #increased fatigue since pacer implant -cause is not clear, but initially there was a concern about underlying AF/AFL. In the past few months he has been atrial paced and still feels the same so this is not the explanation. -He should have an echo at his next follow-up to confirm LVEF (pacer induced ?) ?? #cardiomyopathy?? -he had a history of tachymyopathy that recovered in the past but it appears that he had a recurrence of this. ?His LVEF on 01/31/2022 was 45%, but the echo 12/2020 was normal. ?? -he is on Bblocker -no ANNAMARIE/ARB at the moment, he is on hydralazine; history of kidney transplant. ?? -Cr 1.6 with GFR 45 although transplanted kidney ?? #history of PAF -most recent EC08/21/2022: a-paced -s/p dual chamber pacer (medtronic) for tachy-sakina summer 2021 -s/p Watchman -on Bblocker ? Follow-up plan: October 2022 with an echo at that time SUBJECTIVE: Yash Bolden returns to clinic today for follow-up. He is here by himself today. His is in [place] at the moment and they are thinking about moving back there. He states that he continues to have some chronic fatigue - says he is tired all the time - but alsonotes that his sleep schedule is terrible. States that he has 4 dogs and they wake him up at night so he can take them out. At the same time, he seems to be in good spirits overall today and has nospecific complaints. Apparently he and his had an 8-unit apartment building in [facility] that they just sold. 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 Not as active at the moment. Denies any chest pain or significant shortness of breath. He had a follow-up echo today (results below) with an LVEF estimated at 45-50%. Meds: Current Outpatient Medications Medication Sig Dispense Refill ??? hydrALAZINE (Apresoline) 100 mg tablet Take 1 tablet by mouth 2 times daily. 180 tablet 3 ??? Magnesium Gluconate 27 mg magnesium (500 mg) Tablet TAKE 2 TABLETS BY MOUTH EVERY MORNING, 1 TABLET AT NOON, AND 2 TABLETS EVERY EVENING. 450 tablet 2 ??? mycophenolate (Cellcept) 250 mg Capsule Take 1 capsule by mouth 2 times daily. 180 capsule 2 ??? tacrolimus (Prograf) 1 mg Capsule TAKE TWO CAPSULES BY MOUTH EVERY MORNING AND ONE CAPSULE NIGHTLY (Patient taking differently: Take 1 mg by mouth 2 times daily. TAKE TWO CAPSULES BY MOUTH EVERY MORNING AND ONE CAPSULE NIGHTLY) 270 capsule 2 ??? aspirin EC 81 mg Tablet, Delayed Release (E.C.) Take 1 tablet by mouth daily for 120 days. 30 tablet 3 ??? metoprolol succinate XL (Toprol-XL) 50 mg Tablet Sustained Release 24 hr Take 1 tablet by mouth2 times daily. 180 tablet 3 ??? amLODIPine (Norvasc) 5 mg Tablet Take 1 tablet by mouth daily. (Patient taking differently: Take 5 mg by mouth nightly.) 90 tablet 3 ??? atorvastatin (Lipitor) 40 mg Tablet Take 1 tablet by mouth every evening. 90 tablet 3 ??? calciTRIoL (Rocaltrol) 0.5 mcg Capsule TAKE ONE CAPSULE BY MOUTH EVERY DAY 90 capsule 3 ??? ascorbic acid, Vitamin C, (Vitamin C) 500 mg Tablet Take 1 tablet by mouth 3 times daily. 270 tablet 2 ??? multivitamin with minerals and lutein Tablet Take 2 tablets by mouth daily. (Patient taking differently: Take 1 tablet by mouth 2 times daily.) 180 tablet 2 ??? glipiZIDE XL (Glucotrol XL) 10 mg Tablet Extended Rel 24 hr Take 10 mg by mouth 2 times daily. ??? nitroGLYcerin (NITROSTAT) 0.4 mg Tablet, Sublingual Place 1 tablet under the tongue every 5 minutes as needed for Chest pain. 90 tablet 12 ??? tamsulosin (FLOMAX) 0.4 mg Capsule Take 0.4 mg by mouth daily. ??? acetaminophen (TYLENOL) 500 mg Tablet Take 1,000 mg by mouth every 8 hours as needed for Pain. ??? levothyroxine (SYNTHROID) 137 mcg Tablet Take 137 mcg by mouth daily. Patient Vitals for the past 24 hrs: Pulse BP SpO2 10/22/22 1356 65 129/63 97 % General: Body mass index is 30.13 kg/m??. HEENT: PERRLA Neck: supple, JVP normal Lungs: clear to ascultation Cardiac: RRR, no m/r/g Abdomen: nontender, nondistended Extremities: normal ROM, No edema. Neuro: alert and oriented x 3, normal muscle strength Most recent labs or other cardiac testing: Latest Reference Range & Units 10/10/22 08:22 WBC 4.0 - 9.5 x10(3)/mcL 8.9 RBC 4.58 - 5.54 x10(6)/mcL 4.54 (L) Hemoglobin 13.7 - 16.5 g/dL 13.8 Hematocrit 40.5 - 48.5 % 40.2 (L) MCV 82.9 - 93.1 fL 88.5 MCH 27.5 - 32.1 pg 30.4 MCHC 32.0 - 35.7 g/dL 34.3 RDWSD 36.0 - 45.0 fL 42.9 RDWCV 11.4 - 13.8 % 13.4 Platelets 145 - 357 x10(3)/mcL 275 Latest Reference Range & Units 10/10/22 08:22 Sodium 135 - 145 mmol/L 143 Potassium 3.5 - 5.0 mmol/L 4.2 Chloride 98 - 107 mmol/L 104 CO2 22 - 31 mmol/L 28 Anion Gap 5 - 15 mmol/L 11 BUN 10 - 20 mg/dL 15 Creatinine 0.80 - 1.50 mg/dL 1.26 Estimated GFR >=60 mL/min/1.73 m?? 60 Calcium 8.5 - 10.5 mg/dL 9.9 Magnesium 0.69 - 1.07 mmol/L 0.64 (L) Phosphorus 2.5 - 4.5 mg/dL 2.5 Uric Acid 3.5 - 8.5 mg/dL 6.4 Glucose Lvl 65 - 199 mg/dL 183 Echo from today: Interpretation Summary 1. Left ventricular function is low-normal with LVEF of 52% by Elizabeth's biplane and visually estimated LVEF of 45-50%. There is global hypokinesis. 2. The right ventricular size and function are normal. PASP 29 mm Hg (assuming RA pressure 3 mm Hg). 3. The left atrium is mildly dilated. The right atrium is moderately dilated. 4. There is no hemodynamically significant valvular disease present. 5. Compared to prior echo 02/19/2022, LV function visually appears similar. ASSESSMENT / PLAN: Mr. Bolden is a 72 y/o M w/ PMH HTN, T2DM, ASCVD s/p PCI to OM, atrial fibrillation (s/p Watchman??due to intracranial bleed), tachy-sakina syndrome s/p PPM summer 2021, ESRD s/p renal transplant, prior CVA, diverticulitis who??has been having general malaise/fatigue.? #increased fatigue since pacer implant -cause is not clear, but initially there was a concern about underlying AF/AFL. In the past few months he has been atrial paced and still feels the same so this unlikely to be the explanation -echo obtained today with LVEF 45-50%, about the same as prior ?? #cardiomyopathy?? -he had a history of tachymyopathy that recovered in the past but it appears that he had a recurrence of this. ?His LVEF on 01/31/2022 was 45%, but the echo 12/2020 was normal. ?? -he is on Bblocker -no ANNAMARIE/ARB at the moment, he is on hydralazine; history of kidney transplant. ?? -other HF meds: manny could be considered, SGLT2i -Cr 1.26 (transplanted kidney) -trace to mild edema: may be secondary to amlodipine?? #history of PAF -most recent EC08/21/2022: a-paced -s/p dual chamber pacer (medtronic) for tachy-sakina summer 2021 -s/p Watchman -on Bblocker ? Follow-up plan: 1 year or prn Byron Brown MD, [facility] Cardiovascular Medicine [place] [id number] Clinic [phone] Clinic Team Nurse: [phone] Estimated time : 30 minutes total time in review of lab tests, evaluation, education of suggested medication, ordering medications and tests, communicating care coordination, and documentation of my findings and recommendations. documented in this encounter Plan of Treatment Upcoming Encounters Date Type Department Care Team (Late st Contact Info) Description 04/15/2024 10:00 AM EDT Hospital Encounter Non-Invasive [place] [address] Arrived documented as of this encounter Goals Goal Patient Goal Type Associated Problems Recent Progress Patient-Stated? Author Home Medication Compliance and Understanding Patient Facing Action Plan On track( 017 10:41 AM EDT) No Selena Cisneros, [facility] Note: Patient Goal: Clear hepatitis C Timeframe to meet goal: within 12 weeks of therapy documented as of this encounter Visit Diagnoses Diagnosis Cardiomyopathy, unspecified type documented in this encounter Care Teams Animation Director Relationship Specialty Start Date End Date Urbano Jimenez DO [address] [place] [address] PCP - General Family Medicine 03/18/22 Ruchi Valles RN Nurse Clinic Transplant Surgery 07/30/15 documented as of this encounter
--- OUTSIDE RECORDS SUMMARY | 2024-02-14 11:15 | XMS_ITS | Encounter Summary ---
Author Organization [facility] Address [facility] [place] [address] Care Team Providers Care Boiler Assistant Operator Name Role Phone Urbano Jimenez Ray KIRBY Primary Care Provider [phone] Reason for Visit * Reason Onset Date Comments Medication Refill 05/26/2023 Encounter Details Date Type Department Care Team (Late st Contact Info) Description 05/26/2023 Refill Cardiology at [address] [address] Byron Brown MD [facility] [place] [address] Medication Refill Social History Tobacco Use Types Packs/Day Years Used Date Smoking Tobacco: Light Smoker Cigars Smokeless Tobacco: Never Comments:cigars, one weekly Alcohol Use Standard Drinks/Week Comments No 0 (1 standard drink = 0.6 oz pur e alcohol) [facility] Inpatient Questions Answer Date Recorded Does Anyone [...] AM EDT Hospital Encounter Non-Invasive [place] [address] Arrived documented as of this encounter Goals Goal Patient Goal Type Associated Problems Recent Progress Patient-Stated? Author DH Home Medication Compliance and Understanding Patient Facing Action Plan On track( 017 10:41 AM EDT) Selena Scott, [facility] Note: Patient Goal: Clear hepatitis C Timeframe to meet goal: within 12 weeks of therapy documented as of this encounter Visit Diagnoses Diagnosis Coronary artery disease Coronary atherosclerosis of unspecified type of vessel, [place] or graft documented in this encounter Care Teams Boiler Assistant Operator Relationship Specialty Start Date End Date Urbano Jimenez DO [address] [place] [address] [place] [address] PCP - General Family Medicine 03/18/22 Ruchi Valles RN Nurse Clinic Transplant Surgery 07/30/15 documented as of this encounter
--- OUTSIDE RECORDS SUMMARY | 2024-02-14 11:15 | XMS_ITS | Encounter Summary ---
[place] [address] Care Team Providers Care Flexo Operator Name Role Phone Urbano Jimenez DO Primary Care Provider [phone] Reason for Referral * Diagnostic Test (Routine) - Closed Specialty Diagnoses / Procedures Referred By Humberto t Referred To Contact Cardiology Diagnoses Cardiomyopathy, unspecified type Procedures Echocardiogram Transthoracic Shaq Damon MD [facility] [place] [address] [facility] [place] [address] Referral ID Status Reason Start Date Expiration Date V isits Requested Visits Authorized [id number] Closed Specialty Service Requested 09/02/2022 09/02/2023 1 1 Reason for Visit * Diagnostic Test (Routine) - Closed Specialty Diagnoses / Procedures Referred By Humberto flor Referred To Contact Cardiology Diagnoses Cardiomyopathy, unspecified type Procedures Echocardiogram Transthoracic Shaq Damon MD [facility] [place] [address] [facility] [place] [address] Referral ID Status Reason Start Date Expiration Date V isits Requested Visits Authorized [id number] Closed Specialty Service Requested 09/02/2022 09/02/2023 1 1 Encounter Details Date Type Department Care Team (Late st Contact Info) Description 10/22/2022 11:44 AM EDT - 10/22/2022 11:59 PM EDT Hospital Encounter Non-Invasive Cardiology Lab [facility] [place] [address] Shaq Damon MD [facility] [place] [address] Cardiomyopathy, unspecified type Discharge Disposition: Home Social History Tobacco Use [...] Sig Dispensed Refills Start Date End Date hydrALAZINE (Apresoline) 100 mg tabletIndications:H/O kidney transplant,Aftercare [...] Tablet Take 137 mcg by mouth daily. Magnesium Gluconate 27 mg magnesium (500 mg) TabletIndications:H/O kidney transplant,Aftercare following organ transplant,Other complication of kidney transplant,retirement current use of 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 drug TAKE 2 TABLETS BY MOUTH EVERY MORNING, 1 TABLET AT NOON, AND 2 TABLETS EVERY EVENING. 450 tablet 2 09/01/2022 06/05/2023 mycophenolate (Cellcept) 250 mg CapsuleIndications:Prophy lactic immunotherapy,H/O kidney transplant Take 1 capsule by mouth 2 times daily. 180 capsule 2 07/28/2022 02/11/2023 tacrolimus (Prograf) 1 mg CapsuleIndications:Prophy lactic immunotherapy,H/O kidney transplant TAKE TWO CAPSULES BY MOUTH EVERY MORNING AND ONE CAPSULE NIGHTLY 270 capsule 2 07/28/2022 02/11/2023 aspirin EC 81 mg Tablet, Delayed Release (E.C.)Indications:Atrial fibrillation, unspecified type Take 1 tablet by mouth daily for 120 days. 30 tablet 3 07/15/2022 11/12/2022 metoprolol succinate XL (Toprol-XL) 50 mg Tablet Sustained Release 24 hrIndications:Atrial fibrillation with RVR Take 1 tablet by mouth 2 times daily. 180 tablet 3 02/25/2022 03/27/2023 atorvastatin (Lipitor) 40 mg TabletIndications:Coronar y artery disease Take 1 tablet by mouth every evening. 90 tablet 3 01/14/2022 02/11/2023 calciTRIoL (Rocaltrol) 0.5 mcg Capsule TAKE ONE CAPSULE BY MOUTH EVERY DAY 90 capsule 3 10/28/2021 11/13/2022 documented as of this encounter Plan of Treatment Upcoming Encounters Date Type Department Care Team (Late st Contact Info) Description 04/15/2024 10:00 AM EDT Hospital Encounter [place] [address] Arrived documented as of this encounter Goals [...] Procedure Name Priority Date/Time Associated Diagnosis Comments ECHO COMPLETE Routine 10/22/2022 1:00 PM EDT Cardiomyopathy, unspecified type documented in this encounter Results * ECHO COMPLETE (10/22/2022 1:00 PM EDT) EF 52 HEARTEndoStim SYSTEM Anatomical Region Laterality Modality Cardiac Other 10/22/2022 11:5 9 AM EDT Narrative 10/22/2022 1:20 PM EDT ? Echocardiogram Report Name: ETHEL BOLDEN ?Study Date: 10/22/2022 11:59 AMBP: 128/68 mmHg ? Patient Location: : 1950 ? Height: 180 cm ? Account: [id number] Age: 72 yrs ? Weight: 101 kg Gender: Male ?BSA: 2.2 m2 Ordering Physician: SHAQ DAMON Referring Physician: SHAQ DAMON Performed By: Leila Max RDCS Reason For Study: Cardiomyopathy Exam Location: [facility]. Interpretation Summary 1. Left ventricular function is [...] echo 02/19/2022, LV function visually appears similar. Procedure Complete-[id number]. Left ventricular strain. Satisfactory quality. Left Ventricle Left ventricle is of normal size. Wall thickness is moderately increased. There is no left ventricular outflow tract obstruction. There is no ventricular septal defect. Left ventricular systolic function is mildly reduced. The left ventricular ejection fraction is 52% by Elizabeth's biplane. Global longitudinal strain is measured at -13.9 %. (GE). Mild global hypokinesis. Right Ventricle There is a CIED lead in the right ventricle. The right ventricle is probably normal in size. Right ventricular systolic function is normal. Left Atrium The left atrium is mildly dilated. No abnormality of the interatrial septum is identified. Right Atrium A pacemaker lead is present in the right atrium. The right atrium is moderately dilated. Aortic Valve The aortic valve is not well visualized. The aortic valve is mildly thickened. The aortic valve is moderately calcified. The peak instantaneous gradient across the aortic valve is 16 mmHg. The mean gradient across the aortic valve is 10. The aortic valve area calculated using the continuity equation is 2.4 cm2. The dimensionless index is .55. The stroke volume index is 44 mL/m2. There is no aortic stenosis. There is mild aortic regurgitation. Mitral Valve The mitral valve leaflets are thickened. There is no mitral stenosis. There is mild mitral regurgitation. Tricuspid Valve The tricuspid valve is structurally normal. There is mild tricuspid regurgitation. Pulmonic Valve The pulmonic valve appears to be structurally normal. There is no pulmonic valve regurgitation. Great Arteries The aortic root is of normal size. No abnormalities are identified. The ascending aorta is dilated. The maximum diameter of the proximal ascending aorta is 4.0 cm. No abnormalities of the pulmonary artery are identified. Venous Inferior vena cava is normal in size. Inferior vena cava collapse greater than 50% with respiration. Pericardium/Pleural There is a trivial pericardial effusion. Hemodynamics The peak right ventricular systolic pressure is 29 mmHg. The estimated right atrial pressure is 3mmHg. Left ventricular diastolic function is indeterminate. Left ventricular filling pressure is increased. Ejection Fraction ?2D Measurements ? Volumes EF(MOD-bp): 51.9 % ?IVSd: 1.9 cm ? LAV(MOD- bp) Indexed: ?LVIDd: 5.2 cm ?LVIDs: 4.2 cm ?42.3 ml/m2 ?LVPWd: 1.5 cm ?RA A4Cs_phl: 25.2 cm2 ? EDV (MOD-bp) Index: 55.4 ?LV mass(C)d: 394.9 grams ? ESV (MOD-bp) Index: 26.6 ?LV mass(C)dI: 179.0 grams/m2 ?? SV(LVOT): 96.2 ml ?Ao root diam: 3.6 cm ?Ao root diam index: 1.7 ?SI(LVOT): 43.6 ml/m2 ?asc Aorta Diam: 4.0 cm ?LVOT diam: 2.3 cm ?TAPSE_phl: 2.3 cm Doppler TR max kris: 256.7 cm/sec RVSP(TR): 29.4 mmHg LV V1 VTI: 22.5 cm Ao V2 VTI: 40.9 cm Ao Max: 202.3 cm/sec Ao valve max: 16.4 mmHg Ao valve mean: 9.8 mmHg MV E max kris: 63.8 cm/sec MV A max kris: 45.7 cm/sec MV E/A: 1.4 MV dec time: 0.28 sec Lat Peak E' Kris: 5.0 cm/sec E/ e' (lat): 12.7 Med Peak E' Kris: 4.3 cm/sec E/e' (med): 14.8 E/e' Average: 13.7 SHANIA(I,D): 2.4 cm2 Dimensionless index Aov: 0.55 I ?WMSI = 2.00 ? % Normal = 0 ?Segments ??Size X - Cannot ?2 - ?4 - ?1-2 ? small Interpret ?1 - Normal ?? Hypokinetic 3 - Akinetic Dyskinetic ?? 3-5 ? moderate 5 - ? 6-14 ?large Aneurysmal ?15-16 ?? diffuse Procedure Note Memo Wyatt MD - 10/22/2022 Echocardiogram Report Name: ETHEL BOLDEN Study Date: 1:59 AMBP: 128/68 mmHg Patient Location: : 1950 Height: 180 cm Account: [id number] Age: 72 yrs Weight: 101 kg Gender: Male BSA: 2.2 m2 Ordering Physician: SHAQ DAMON Referring Physician: SHAQ DAMON Performed By: Leila Max RDCS Reason For Study: Cardiomyopathy Exam Location: [facility]. Interpretation Summary 1. Left ventricular function is low-normal with LVEF of 52% by Elizabeth'sbiplane and visually estimated LVEF of 45-50%. There is global hypokinesis. 2. The right ventricular size and function are normal. PASP 29 mm Hg(assuming RA pressure 3 mm Hg). 3. The left atrium is mildly dilated. The right atrium is moderatelydilated. 4. There is no hemodynamically significant valvular disease present. 5. Compared to prior echo 02/19/2022, LV function visually appearssimilar. Procedure Complete-[id number]. Left ventricular strain. Satisfactory quality. Left Ventricle Left ventricle is of normal size. Wall thickness is moderately increased.There is no left ventricular outflow tract obstruction. There is no ventricularseptal defect. Left ventricular systolic function is mildly reduced. The leftventricular ejection fraction is 52% by Elizabeth's biplane. Global longitudinal strainis measured at -13.9 %. (GE). Mild global hypokinesis. Right Ventricle There is a CIED lead in the right ventricle. The right ventricle isprobably normal in size. Right ventricular systolic function is normal. Left Atrium The left atrium is mildly dilated. No abnormality of the interatrialseptum is identified. Right Atrium A pacemaker lead is present in the right atrium. The right atrium ismoderately dilated. Aortic Valve The aortic valve is not well visualized. The aortic valve is mildlythickened. The aortic valve is moderately calcified. The peak instantaneous gradientacross the aortic valve is 16 mmHg. The mean gradient across the aortic valve is 10.The aortic valve area calculated using the continuity equation is 2.4 cm2.The dimensionless index is .55. The stroke volume index is 44 mL/m2. There isno aortic stenosis. There is mild aortic regurgitation. Mitral Valve The mitral valve leaflets are thickened. There is no mitral stenosis.There is mild mitral regurgitation. Tricuspid Valve The tricuspid valve is structurally normal. There is mild tricuspidregurgitation. Pulmonic Valve The pulmonic valve appears to be structurally normal. There is no pulmonicvalve regurgitation. Great Arteries The aortic root is of normal size. No abnormalities are identified. Theascending aorta is dilated. The maximum diameter of the proximal ascending aorta is4.0 cm. No abnormalities of the pulmonary artery are identified. Venous Inferior vena cava is normal in size. Inferior vena cava collapse greaterthan 50% with respiration. Pericardium/Pleural There is a trivial pericardial effusion. Hemodynamics The peak right ventricular systolic pressure is 29 mmHg. The estimatedright atrial pressure is 3mmHg. Left ventricular diastolic function isindeterminate. Left ventricular filling pressure is increased. Ejection Fraction 2D Measurements Volumes EF(MOD-bp): 51.9 % IVSd: 1.9 cm LAV(MOD-bp)Indexed: LVIDd: 5.2 cm LVIDs: 4.2 cm 42.3 ml/m2 LVPWd: 1.5 cm RA A4Cs_phl: 25.2cm2 EDV (MOD-bp)Index: 55.4 LV mass(C)d: 394.9 grams ESV (MOD-bp)Index: 26.6 LV mass(C)dI: 179.0 grams/m2 SV(LVOT): 96.2ml Ao root diam: 3.6 cm Ao root diam index: 1.7 SI(LVOT): 43.6ml/m2 asc Aorta Diam: 4.0 cm LVOT diam: 2.3 cm TAPSE_phl: 2.3 cm Doppler TR max kris: 256.7 cm/sec RVSP(TR): 29.4 mmHg LV V1 VTI: 22.5 cm Ao V2 VTI: 40.9 cm Ao Max: 202.3 cm/sec Ao valve max: 16.4 mmHg Ao valve mean: 9.8 mmHg MV E max kris: 63.8 cm/sec MV A max kris: 45.7 cm/sec MV E/A: 1.4 MV dec time: 0.28 sec Lat Peak E' Kris: 5.0 cm/sec E/ e' (lat): 12.7 Med Peak E' Kris: 4.3 cm/sec E/e' (med): 14.8 E/e' Average: 13.7 SHANIA(I,D): 2.4 cm2 Dimensionless index Aov: 0.55 I WMSI = 2.00 % Normal = 0 SegmentsSize X - Cannot 2 - 4 - 1-2small Interpret 1 - Normal Hypokinetic 3 - Akinetic Dyskinetic 3-5moderate 5 - 6-14large Aneurysmal 15-16diffuse Shaq P Damon MD ECHO ORDERABLES documented in this encounter Visit Diagnoses Diagnosis Cardiomyopathy, unspecified type documented in this encounter Care Teams Flexo Operator Relationship Specialty Start Date End Date Urbano Jimenez DO [address] [place] [address] PCP - General Family Medicine 03/18/22 Ruchi Valles RN Nurse Clinic Transplant Surgery 07/30/15 documented as of this encounter
--- OUTSIDE RECORDS SUMMARY | 2024-02-14 11:15 | XMS_ITS | Encounter Summary ---
Author Organization [facility] [place] [address] Care Team Providers Care Square Dance Caller Name Role Phone PerrydebUrbano DO Primary Care Provider [phone] Encounter Details Date Type Department Care Team (Late st Contact Info) Description 04/03/2023 External Results [place] [phone] Social History Tobacco Use Types Packs/Day Years [...] AM EDT Hospital Encounter Non-[place] [phone] Arrived documented as of this encounter Goals Goal Patient Goal Type Associated Problems Recent Progress Patient-Stated? Author [facility] Medication Compliance and Understanding Patient Facing Action Plan On track( 017 10:41 AM EDT) Selena Scott, [facility] Note: Patient Goal: Clear hepatitis C Timeframe to meet goal: within 12 weeks of therapy documented as of this encounter Procedures Procedure Name Priority Date/Time Associated Diagnosis Comments [facility] EXTERNAL LAB PANEL Routine 03/26/2023 2:43 PM EDT documented in this encounter Results * [facility] External Lab Panel (03/26/2023 2:43 PM EDT) Historical Provider POINT OF CARE BOBY T ORDERABLES documented in this encounter Visit Diagnoses Not on filedocumented in this encounter Care Teams Square Dance Caller Relationship Specialty Start Date End Date Urbano Jimenez DO [address] [place] [address] PCP - General Family Medicine 03/18/22 Ruchi Valles RN Nurse Clinic Transplant Surgery 07/30/15 documented as of this encounter
--- OUTSIDE RECORDS SUMMARY | 2024-02-14 11:15 | XMS_ITS | Encounter Summary ---
Author Organization [facility] [place] [address] Care Team Providers Care Braille Operator Name Role Phone Urbano Jimenez Ray KIRBY Primary Care Provider [phone] Reason for Visit * Reason Onset Date Comments Medication Refill 02/11/2023 Encounter Details Date Type Department Care Team (Late st Contact Info) Description 02/11/2023 Refill [place] [address] Tal Eagle MD [facility] [place] [address] Prophylactic immunotherapy; H/O kidney transplant Social History [...] AM EDT Hospital Encounter Non-[place] [phone] Arrived documented as of this encounter Goals Goal Patient Goal Type Associated Problems Recent Progress Patient-Stated? Author [facility] Medication Compliance and Understanding Patient Facing Action Plan On track( 017 10:41 AM EDT) Selena Scott, [facility] Note: Patient Goal: Clear hepatitis C Timeframe to meet goal: within 12 weeks of therapy documented as of this encounter Visit Diagnoses Diagnosis Prophylactic immunotherapy Need for prophylactic immunotherapy H/O kidney transplant Kidney replaced by transplant documented in this encounter Care Teams Braille Operator Relationship Specialty Start Date End Date Urbano Jimenez DO [address] [place] [address] PCP - General Family Medicine 03/18/22 Ruchi Valles RN Nurse Clinic Transplant Surgery 07/30/15 documented as of this encounter
--- OUTSIDE RECORDS SUMMARY | 2024-02-14 11:15 | XMS_ITS | Encounter Summary ---
[place] [address] Care Team Providers Care Straight Knife Cutter Machine Name Role Phone Urbano Jmienez DO Primary Care Provider [phone] Encounter Details Date Type Department Care Team (Latest Contact Info) Description 01/21/2023 10:00 AM EDT - 01/21/2023 11:59 PM EDT Hospital Encounter Non[place] [phone] Discharge Disposition: Home Social History Tobacco Use Types Packs/Day Years Used Date Smoking Tobacco: Light Smoker Cigars Smokeless Tobacco: Never Comments:cigars, one weekly Alcohol Use Standard Drinks/Week Comments No 0 (1 standard drink = 0.6 oz pur e alcohol) REPLACED BY [facility] Inpatient Questions Answer Date Recorded Does Anyone [...] daily. calciTRIoL (Rocaltrol) 0.5 mcg capsuleIndications:H/O kidney transplant,Aftercare following organ transplant,Other complication of kidney transplant,Vitamin D deficiency TAKE ONE CAPSULE BY MOUTH EVERY DAY 90 capsule 3 11/13/2022 05/26/2023 Magnesium Gluconate 27 mg magnesium (500 mg) TabletIndications:H/O kidney transplant,Aftercare following organ transplant,Other complication of kidney transplant,FCI current use of 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 drug TAKE 2 [...] CAPSULE NIGHTLY 270 capsule 2 07/28/2022 02/11/2023 metoprolol succinate XL (Toprol-XL) 50 mg Tablet Sustained Release 24 hrIndications:Atrial fibrillation with RVR Take 1 tablet by mouth 2 times daily. 180 tablet 3 02/25/2022 03/27/2023 atorvastatin (Lipitor) 40 mg TabletIndications:Coronar y artery disease Take 1 tablet by mouth every evening. 90 tablet 3 01/14/2022 02/11/2023 documented as of this encounter Plan of Treatment Upcoming Encounters Date Type Department Care Team (Late st Contact Info) Description 04/15/2024 10:00 AM EDT Hospital Encounter [place] [address] Arrived documented as of this encounter Goals Goal Patient Goal Type Associated Problems Recent Progress Patient-Stated? Author [facility] Home Medication Compliance and Understanding Patient Facing Action Plan On track( 017 10:41 AM EDT) No Selena Cisneros, [facility] Note: Patient Goal: Clear hepatitis C Timeframe to meet goal: within 12 weeks of therapy documented as of this encounter Procedures Procedure Name Priority Date/Time Associated Diagnosis Comments PRO PM INTERROGATION REMOTE UP TO 90 DAYS Routine 11/28/2022 12:23 AM EDT documented in this encounter Results * Cardiac Device Check - Remote (11/28/2022 12:23 AM EDT) Anatomical Region Laterality Modality Other 11/28/2022 12:2 3 AM EDT Jay Urban MD IMPLANTABLE CARDIAC DEVICE documented in this encounter Visit Diagnoses Not on filedocumented in this encounter Care Teams Straight Knife Cutter Machine Relationship Specialty Start Date End Date Urbano Jimenez DO [address] [place] [address] PCP - General Family Medicine 03/18/22 Ruchi Valles RN Nurse Clinic Transplant Surgery 07/30/15 documented as of this encounter
--- OUTSIDE RECORDS SUMMARY | 2024-02-14 11:15 | XMS_ITS | Encounter Summary ---
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; Vitamin D deficiency Social History Tobacco Use Types Packs/Day Years Used Date Smoking Tobacco: Light Smoker Cigars Smokeless Tobacco: Never Comments:cigars, one weekly Alcohol Use Standard Drinks/Week Comments No 0 (1 standard drink = 0.6 oz pur e alcohol) [facility] Inpatient Questions Answer Date Recorded [...] AM EDT Hospital Encounter Non[place] [address] Arrived Scheduled Orders Name Type Priority Associated Diagnoses Orde r Schedule Transplant: Yearly lab request - External Results Lab Routine H/O kidney transplant Other complication of kidney transplant [facility] current use of 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 drug Vitamin D deficiency Expected: 08/06/2023 (Approximate), Expires: 08/05/2024 documented as of this encounter Goals Goal Patient Goal Type Associated Problems Recent Progress Patient-Stated? 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
--- OUTSIDE RECORDS SUMMARY | 2024-02-14 11:15 | XMS_ITS | Encounter Summary ---
Author Organization [facility] [place] [address] Care Team Providers Care Jewelry Sales Coordinator Name Role Phone Urbano Jimenez DO Primary Care Provider [phone] Encounter Details Date Type Department Care Team (Late st Contact Info) Description 06/17/2023 Telephone [place] [address] Breezy Dale MD [facility] [place] [address] Social History Tobacco Use Types Packs/Day Years Used Date Smoking Tobacco: Light Smoker Cigars Smokeless Tobacco: Never Comments:cigars, one weekly Alcohol Use Standard Drinks/Week Comments No 0 (1 standard drink = 0.6 oz pur e alcohol) [facility] Inpatient Questions Answer Date Recorded [...] encounter Miscellaneous Notes * Telephone Encounter - Eugene Paul - 06/17/2023 10:38 AM EST Closing out recall as patient have moved and the travel is to much to come up for appointments. documented in this encounter Plan of Treatment Upcoming Encounters Date Type Department Care Team (Late st Contact Info) Description 04/15/2024 10:00 AM EDT Hospital Encounter Non-Invasive [place] [phone] Arrived documented as of this encounter Goals Goal Patient Goal Type Associated Problems Recent Progress Patient-Stated? Author [facility] Home Medication Compliance and Understanding Patient Facing Action Plan On track( 017 10:41 AM EDT) No Selena Cisneros, [facility] Note: Patient Goal: Clear hepatitis C Timeframe to meet goal: within 12 weeks of therapy documented as of this encounter Visit Diagnoses Not on filedocumented in this encounter Care Teams Jewelry Sales Coordinator Relationship Specialty Start Date End Date Urbano Jimenez DO [address] [place] [address] PCP - General Family Medicine 03/18/22 Ruchi Valles RN Nurse Clinic Transplant Surgery 07/30/15 documented as of this encounter
--- OUTSIDE RECORDS SUMMARY | 2024-02-14 11:15 | XMS_ITS | Encounter Summary ---
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
--- OUTSIDE RECORDS SUMMARY | 2024-02-14 11:15 | XMS_ITS | Encounter Summary ---
[place] [address] Care Team Providers Care Landman Name Role Phone Urbano Jimenez DO Primary Care Provider [phone] Encounter Details Date Type Department Care Team (Latest Contact Info) Description 04/21/2023 10:00 AM EDT - 04/21/2023 11:59 PM EDT Hospital Encounter Non[place] [phone] Discharge Disposition: Home Social History Tobacco Use Types Packs/Day Years Used Date Smoking Tobacco: Light Smoker Cigars Smokeless Tobacco: Never Comments:cigars, one weekly Alcohol Use Standard Drinks/Week Comments No 0 (1 standard drink = 0.6 oz pur e alcohol) [facility] Inpatient Questions Answer Date Recorded [...] Sig Dispensed Refills Start Date End Date atorvastatin (Lipitor) 40 mg tabletIndications:Coronary artery disease TAKE ONE TABLET BY MOUTH [...] ER 24 hr tabletIndications:Atrial fibrillation with RVR TAKE ONE TABLET BY MOUTH TWO TIMES A DAY 180 tablet 1 03/27/2023 07/08/2023 mycophenolate (Cellcept) 250 mg capsuleIndications:Prophyl actic immunotherapy,H/O kidney transplant Take 1 capsule by mouth 2 times daily. 180 capsule 2 02/12/2023 05/29/2023 tacrolimus (Prograf) 1 mg IR capsuleIndications:Prophyl actic immunotherapy,H/O kidney transplant Take 1 capsule by mouth 2 times daily. 180 capsule 2 02/12/2023 05/29/2023 calciTRIoL (Rocaltrol) 0.5 mcg capsuleIndications:H/O kidney transplant,Aftercare following organ transplant,Other complication of kidney transplant,Vitamin D deficiency TAKE ONE CAPSULE BY MOUTH EVERY DAY 90 capsule 3 11/13/2022 05/26/2023 Magnesium Gluconate 27 mg magnesium (500 mg) TabletIndications:H/O kidney transplant,Aftercare following organ transplant,Other complication of kidney transplant,correction current use of 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 drug TAKE 2 TABLETS BY MOUTH EVERY MORNING, 1 TABLET AT NOON, AND 2 TABLETS EVERY EVENING. 450 tablet 2 09/01/2022 06/05/2023 documented as of this encounter Plan of Treatment Upcoming Encounters Date Type Department Care Team (Late st Contact Info) Description 04/15/2024 10:00 AM EDT Hospital Encounter Non-Invasive Cardiology Lab [facility] [place] [address] Arrived documented as of this encounter Goals Goal Patient Goal Type Associated Problems Recent Progress Patient-Stated? Author DH Home Medication Compliance and Understanding Patient Facing Action Plan On track( 017 10:41 AM EDT) Selena Scott, [facility] Note: Patient Goal: Clear hepatitis C Timeframe to meet goal: within 12 weeks of therapy documented as of this encounter Procedures Procedure Name Priority Date/Time Associated Diagnosis Comments PRO PM INTERROGATION REMOTE UP TO 90 DAYS Routine 03/03/2023 12:17 AM EDT documented in this encounter Results * Cardiac Device Check - Remote (03/03/2023 12:17 AM EDT) Anatomical Region Laterality Modality Other 03/03/2023 12:1 7 AM EDT Aziza Benson MD IMPLANTABLE CARDIAC DEVICE documented in this encounter Visit Diagnoses Not on filedocumented in this encounter Care Teams Landman Relationship Specialty Start Date End Date Urbano Jimenez DO [address] [place] [address] PCP - General Family Medicine 03/18/22 Ruchi Valles RN Nurse Clinic Transplant Surgery 07/30/15 documented as of this encounter
--- OUTSIDE RECORDS SUMMARY | 2024-02-14 11:15 | XMS_ITS | Encounter Summary ---
Author Organization [facility] Address [facility] [address] Care Team Providers Care Ferryboat Pilot Name Role Phone Urbano Jimenez DO Primary Care Provider [phone] Encounter Details Date Type Department Care Team (Latest Contact Info) Description 10/10/2022 10:00 AM EDT Office [place] [address] Tal Eagle MD [facility] [address] [place] [address] H/O kidney transplant; Aftercare following organ transplant; Other complication of kidney transplant; Prophylactic immunotherapy; 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 ; Vitamin D deficiency Social History Tobacco Use Types Packs/Day Years Used Date Smoking Tobacco: Light Smoker Cigars Smokeless Tobacco: Never Comments:cigars, one weekly Alcohol Use Standard Drinks/Week Comments No 0 (1 standard drink = 0.6 oz pur e alcohol) [facility] Inpatient Questions Answer Date Recorded Does [...] Sign Reading Time Taken Comments Blood Pressure 120/64 10/10/2022 9:25 AM EDT Pulse 72 10/10/2022 9:25 AM EDT Temperature 36.7 ??C (98 ??F) 10/10/2022 9:25 AM EDT Respiratory Rate - - Oxygen Saturation 95% 10/10/2022 9:25 AM EDT Inhaled Oxygen Concentration - - Weight 100.9 kg (222 lb 6.4 oz) 10/10/2022 9:25 AM EDT Height - - Body Mass Index 31.03 09/14/2022 7:31 PM EDT documented in this encounter Progress Notes * Urbano Houston LPN - 10/10/2022 10:00 AM EDT I contacted .name for pre-appointment check-in. Have you tested positive for COVID19 in the last 90 days? -no If you have tested positive for COVID in the last 90 days a RN will call you back to discuss procedures for safely coming to clinic. Have you experienced any of the following COVID19 Symptoms in the last 7 days: -no Check all that apply: [] Cough [] Shortness of Breath [] Fever [] New Loss of Taste or Smell [] Fatigue [] Muscle or Body Aches [] Headache [] Sore Throat [] Congestion or runny nose [] Nausea or vomiting [] Diarrhea Have you tested for COVID yes, neg If you have experienced any of these symptoms you must have a COVID test before coming to clinic; one of the RN's will you discuss symptom management and follow up procedures. IF No to all the above: [] Review Allergy and medication list [] Complete Learning needs assessment [] Annual Questionnaire (for yearly visits only) [] If vaccinations are recommended (flu, Tdap, Pneumonia) would your like to receive in clinic? Pend vaccine order to provider [] Any refills needed? Pend in office visit (will not be sent to pharmacy until after appointment due to possible adjustments during visit) * Tal Eagle MD - 10/10/2022 10:00 AM EDT Transplant Nephrology Clinic Follow up Note? PATIENT:??Cody Bolden? :??1950 [place]: 10/10/2022; last visit 05/2022 ? 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 History of Present Illness: Yash is here today for an annual appointment although I recently saw him in the hospital with a significant bout of diverticulitis from thru 2022. He was placed on bowel rest and treated with antibiotics. Per Surgery Mr. Bodlen was admitted and managed non-operatively for acute sigmoid diverticulitis. Transplant nephrology was consulted while inpatient given patient's history of right DDKT, tacrolimus level measured and dose adjusted accordingly. His serial abdominal exams began to improve however there was concern for a change in exam with peritonitis on 09/17 for which a repeat CT scan was performed without significant change in findings. His exam improved the following morning and diet was resumed with excellent tolerance. He was initially started on IV zosyn on admissionand was transitioned to a 4 day course of Augmentin oral antibiotics beginning on 09/19/22. Yash previously underwent a Watchman procedure on 05/08/2022 due to tachyarrhythmia associated cardiomyopathy. He is s/p pacemaker 01/2022 and s/p basal ganglia hemorrhagic stroke. His last echo had an LVEF 45% . He was found to have spike protein Ab against the spike protein 03/18/2022. Previously rec'd both COVID shots (09/12 and 10/03/20) and since the last time he was seen his 3rd: 05/11/2021 -??Moderna; today he rec'd an updated pneumovax 23 injection. We have no record of him ever receiving a Prevnar. ?? He had two admissions in 2020: CVA 09/2020 (Dr. Cortés) and diverticulitis 03/2021 (see [facility]). He has no residual defects. Has seen Dr. Brown via telehealth and his cardiomyopathy has improved and he seems stable now. ? His major complaint now is post prandial RUQ discomfort. I reviewed his CT and MR scan of the past and he has known gall stones; he could very well have cholecystitis or GB issues. ?? 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 Previous Tx Hx: 0% PRA. Patient given Basliximab for induction. EBV +/+, CMV +/+; Rx post tx with Dina for hep C and he has cleared the infection. ?? Active Ambulatory Problems Diagnosis Date Noted ??? Hypertension 09/03/2012 ??? DJD (degenerative joint disease) 09/03/2012 ??? Hematuria 09/03/2012 ??? CGN (chronic glomerulonephritis) 10/16/2014 ??? Hepatitis C virus infection 01/04/2015 ??? Other complication of kidney transplant 11/12/2015 ??? Enterococcal bacteremia 02/05/2016 ??? Ureteral stricture 04/29/2016 ??? Dehydration 05/13/2016 ??? H/O kidney transplant 06/13/2016 ??? Aftercare following organ transplant 06/13/2016 ??? Type 2 diabetes mellitus with complication, without long-term current use of insulin 08/12/2016 ??? CAH (chronic active hepatitis) 08/25/2016 ??? Prophylactic immunotherapy 09/22/2016 ??? longterm current use of 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 drug 09/22/2016 ??? Vitamin D deficiency 09/20/2017 ??? Debility 10/05/2017 ??? Pain of right lower extremity 10/05/2017 ??? Obesity (BMI 30.0-34.9) 11/10/2017 ??? Hydronephrosis 06/16/2018 ??? Atrial fibrillation with RVR - had flutter initially, then fib 01/31/2019 ??? Left leg pain 05/30/2019 ??? CAD (coronary artery disease) 11/24/2019 ??? Herniated lumbar intervertebral disc 05/10/2020 ??? Tobacco abuse counseling 10/08/2020 ??? Postprandial RUQ pain 10/22/2021 ??? Gall stones 10/22/2021 ??? 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 ??? Pacemaker 01/31/2022 ??? Aortic stenosis, mild 03/18/2022 ??? Mitral regurgitation 03/18/2022 ??? Atrial fibrillation 05/08/2022 ??? Diverticulitis 09/14/2022 Resolved Ambulatory Problems Diagnosis Date Noted ??? ESRD (end stage renal disease) 04/27/2015 ??? Chronic kidney disease, stage V 05/29/2015 ??? Renal failure 09/16/2015 ??? RAY (acute kidney injury) 11/27/2015 ??? Sepsis 06/22/2016 ??? Weight increase 08/12/2016 ??? Primary osteoarthritis of right knee 10/05/2017 ??? S/P R TKA 11/25/17 Dr. Dale 11/25/2017 Past Medical History: Diagnosis Date ??? Back pain ??? Chronic pain ??? Colon polyp ??? CVA (cerebral vascular accident) ??? Diabetes ??? Gastroesophageal reflux ??? GERD (gastroesophageal reflux disease) ??? High blood pressure ??? HTN (hypertension) ??? Irregular heart beat ??? Kidney failure ??? Liver disease ??? Microhematuria ??? Stroke ??? Type 2 diabetes mellitus Past Surgical History: Procedure Laterality Date ??? JOINT REPLACEMENT new right knee ??? PRG FLUOROSCOPY EXAM UP TO 1 HR PHY OR OT HLTH CARE PROV N/A 05/10/2020 FLUOROSCOPY (WRVU 0.17) performed by Joseph Ang MD at [facility] MAIN OR ? ? PRG DAVEY REAL TIME IMG 2D W PRB IMG ACQUIS I&R N/A 07/15/2022 TRANSESOPHAGEAL ECHOCARDIOGRAM (WRVU 2.55) performed by Ruchi Park MD at [facility] MAIN OR ??? PRO ANASTOMOSIS, AV, ANY SITE Left 05/09/2015 AV FISTULA CREATION, DIRECT HEMODIALYSIS, ANY SITE, EG ASHWINI FISTULA UPPER EXTREMITY performed by Que Amaro MD at [facility] OR ? ? PRO ARTHROPLASTY KNEE CONDYLE & PLATEAU MEDIAL & LAT COMPARTMENTS Right 11/25/2017 TOTAL KNEE ARTHROPLASTY (WRVU 20.72) performed by Breezy Dale MD at [facility] OR ??? PRO CYSTOURETHROSCOPY, URETER CATHETER Left 06/17/2018 CYSTO, RETROGRADE, URETEROPYELOGRAPHY (WRVU 2.37) [facility] Edinson [facility] III[facility] ??? PRO LAMINEC/FACETECT/FORAMIN, LUMBAR 1 SEG N/A 05/10/2020 LAMINECTOMY, FACETECTOMY & FORAMINOTOMY,LUMBAR, ONE LEVEL (WRVU 15.37) performed by Joseph Ang MD at [facility] OR ??? PRO LAMINOTOMY, LUMBAR DISK, 1 INTRSP N/A 05/10/2020 LAMINOTOMY, DECOMPRESSION, FORAMINOTOMY, LUMBAR (WRVU 13.18) performed by Joseph Ang MD at [facility] OR ??? PRO MICROSURG TECHNIQUES, REQ OPER MICROSCOPE N/A 05/10/2020 MICROSCOPE USE (WRVU 3.46) performed by Joseph Ang MD at [facility] OR ??? PRO PERQ CLSR TCAT L ATR APNDGE W/ENDOCARDIAL IMPLNT N/A 05/08/2022 @PERQ TRANSCATH CLOSURE LEFT ATRIAL APPENDAGE W ENDOCARDIAL IMPLANT, INC RAD S&I (WRVU 14) performed by Tal Diana MD at [facility] CATH LABS ??? PRO REIMPLANT URETER, SINGLE URETER Left 05/20/2016 @URETERONEOCYSTOSTOMY ANASTOMOSIS OF SINGLE URETER TO BLADDER performed by Santosh Arredondo MD at [facility] OR ??? PRO REIMPLANT URETER, SINGLE URETER N/A 05/20/2016 @URETERONEOCYSTOSTOMY ANASTOMOSIS OF SINGLE URETER TO BLADDER performed by Que Amaro MD at [facility] OR ??? PRO TRANSPLANT, PREP CADAVER RENAL GRAFT N/A 09/16/2015 @PREPARATION CADAVERIC RENAL ALLOGRAFT performed by Franko Larkin MD at [facility] OR ??? PRO TRANSPLANTATION OF KIDNEY N/A 09/16/2015 @KIDNEY TRANSPLANT, WITHOUT RECIPIENT NEPHRECTOMY performed by Franko Larkin MD at [facility] MAIN OR ??? TISSUE TRANSFER kidney ??? US RENAL TRANSPLANT LEFT Left 01/31/2019 US Renal Transplant Left 01/31/2019 [facility] RAD ULTRASOUND ??? US RENAL TRANSPLANT LEFT Left 02/07/2019 US Renal Transplant Left 02/07/2019 [facility] RAD ULTRASOUND ?? Current Outpatient Medications: ??? Magnesium Gluconate 27 mg magnesium (500 mg) Tablet, TAKE 2 TABLETS BY MOUTH EVERY MORNING, 1 TABLET AT NOON, AND 2 TABLETS EVERY EVENING., Disp: 450 tablet, Rfl: 2 ??? mycophenolate (Cellcept) 250 mg Capsule, Take 1 capsule by mouth 2 times daily., Disp: 180 capsule, Rfl: 2 ??? tacrolimus (Prograf) 1 mg Capsule, TAKE TWO CAPSULES BY MOUTH EVERY MORNING AND ONE CAPSULE NIGHTLY (Patient taking differently: Take 1 mg by mouth 2 times daily. TAKE TWO CAPSULES BY MOUTH EVERYMORNING AND ONE CAPSULE NIGHTLY), Disp: 270 capsule, Rfl: 2 ??? aspirin EC 81 mg Tablet, Delayed Release (E.C.), Take 1 tablet by mouth daily for 120 days., Disp: 30 tablet, Rfl: 3 ??? metoprolol succinate XL (Toprol-XL) 50 mg Tablet Sustained Release 24 hr, Take 1 tablet by mouth 2 times daily., Disp: 180 tablet, Rfl: 3 ??? amLODIPine (Norvasc) 5 mg Tablet, Take 1 tablet by mouth daily. (Patient taking differently: Take 5 mg by mouth nightly.), Disp: 90 tablet, Rfl: 3 ??? atorvastatin (Lipitor) 40 mg Tablet, Take 1 tablet by mouth every evening., Disp: 90 tablet, Rfl: 3 ??? calciTRIoL (Rocaltrol) 0.5 mcg Capsule, TAKE ONE CAPSULE BY MOUTH EVERY DAY, Disp: 90 capsule, Rfl: 3 ??? ascorbic acid, Vitamin C, (Vitamin C) 500 mg Tablet, Take 1 tablet by mouth 3 times daily., Disp: 270 tablet, Rfl: 2 ??? multivitamin with minerals and lutein Tablet, Take 2 tablets by mouth daily. (Patient taking differently: Take 1 tablet by mouth 2 times daily.), Disp: 180 tablet, Rfl: 2 ??? glipiZIDE XL (Glucotrol XL) 10 mg Tablet Extended Rel 24 hr, Take 10 mg by mouth 2 times daily., Disp: , Rfl: ??? nitroGLYcerin (NITROSTAT) 0.4 mg Tablet, Sublingual, Place 1 tablet under the tongue every 5 minutes as needed for Chest pain., Disp: 90 tablet, Rfl: 12 ??? tamsulosin (FLOMAX) 0.4 mg Capsule, Take 0.4 mg by mouth daily., Disp: , Rfl: ??? acetaminophen (TYLENOL) 500 mg Tablet, Take 1,000 mg by mouth every 8 hours as needed for Pain., Disp: , Rfl: ??? levothyroxine (SYNTHROID) 137 mcg Tablet, Take 137 mcg by mouth daily., Disp: , Rfl: ??? hydrALAZINE (Apresoline) 100 mg Tablet, Take 1 tablet by mouth 2 times daily., Disp: 180 tablet, Rfl: 1 ?? No Known Allergies? Immunization History Administered Date(s) Administered ??? Hepatitis B Vaccine, unspecified formulation 04/16/2015, 05/14/2015, 06/20/2015 ??? Influenza PF, Split 06/04/2012, 05/26/2013, 04/07/2015, 08/03/2017 ??? Influenza PF, Split (High Dose) 04/23/2016 ??? Influenza Vaccine PF, Quadrivalent (6-35 Mos) 04/04/2015 ??? Influenza Vaccine, Unspecified Formulation 04/24/2022 ??? Moderna Covid-19 (Automated Manufacturing Instructor 100mcg) Vaccine 09/05/2020, 10/03/2020, 05/11/2021 ??? Pfizer Covid-19 (Purple Cap) Vaccine (12yrs+) 04/24/2022 ??? Pneumococcal Polyvalent 23 06/20/2014, 04/11/2015, 10/03/2021 ??? Td, adult 07/06/2000, 05/20/2011 ??? Zoster Vaccine, Live 08/30/2015 ? Healthcare maintenance for a transplant recipient: ?Immunizations (no live virus or modified bacterial vaccines) ?Prevnar 13 once in a lifetime ?Pneumovax 23 every 5 years ?Tdap every 10 years ?Annual flu shot ?Killed SHINGLES VACCINES are now considered safe in Tx recipients Annual PCP exam Annual CASEY and PSA [...] for diabetics, every 5 for non diabetics [facility] kidney ultrasound looking for renal cell CA, every 5 years post transplant Bone density assessment every 9-12 years post transplant Annual fasting lipid profile Annual PTH-Vit D3 assessment until normalized Annual??spot??urine for creatinine, protein, calcium, phosphate, magnesium ?? 12 organ review of systems were neither + or - ? ROS: Constitutional - No fevers, chills, weight loss Skin - No rash or itchy skin, no jaundice HEENT - No headaches, visual changes Resp - No cough, shortness of breath CV - No chest pain, leg swelling, difficulty breathing lying flat GI - No nausea and vomiting but has burping and reflux for last few days , no diarrhea and??occasional post prandial RUQ??abdominal pain. - No change in urine output. No pain urinating or blood in urine. Neuro -??Gen'l??weakness??and easy fatigue. No numbness/ tingling in extremities. ?? PHYSICAL EXAM: Vitals Flowsheet Row Office Visit from 10/10/2022 in Solid Organ Transplant at [facility] [place] Weight 100.9 kg (222 lb 6.4 oz) Temp 36.7 ??C (98 ??F) Temp src Oral Heart Rate 72 BP 120/64 Patient Position Sitting SpO2 95 % Appearance - Alert, Comfortable. Skin - No exanthem. HEENT - Sclera white. Mucous membranes moist. Chest: Lungs clear to ausculatation w/o wheezes/ rhonchi/ crackles. Heart - S1 and S2 clear w/o murmur, gallop, or rub. JVP not elevated. Abd - Soft. + BS. No bruit. Non tender. Ext - Warm. No cyanosis. No dependent edema. Neuro - No asterixis. ?? Recent Results (from the past 24 hour(s)) Uric acid Result Value Ref Range Uric Acid 6.4 3.5 - 8.5 mg/dL Magnesium Result Value Ref Range Magnesium 0.64 (L) 0.69 - 1.07 mmol/L Phosphorus Result Value Ref Range Phosphorus 2.5 2.5 - 4.5 mg/dL Lipid Panel (Reflex Direct LDL) Result Value Ref Range Chol, Total 99 mg/dL Triglycerides 197 mg/dL HDL 35 mg/dL LDL Cholesterol 25 mg/dL Chol/HDL Ratio 2.8 ratio Lipid Interpretation See Note Comprehensive metabolic panel (non-fasting) Result Value Ref Range Glucose Lvl 183 65 - 199 mg/dL BUN 15 10 - 20 mg/dL Creatinine 1.26 0.80 - 1.50 mg/dL Sodium 143 135 - 145 mmol/L Potassium 4.2 3.5 - 5.0 mmol/L Chloride 104 98 - 107 mmol/L CO2 28 22 - 31 mmol/L Anion Gap 11 5 - 15 mmol/L Calcium 9.9 8.5 - 10.5 mg/dL Total Protein 7.2 6.1 - 8.0 g/dL Albumin 4.2 3.2 - 5.2 g/dL AST 22 0 - 39 unit/L ALT 22 0 - 55 unit/L Alk Phos 84 40 - 130 unit/L Total Bilirubin 2.0 (H) 0.2 - 1.3 mg/dL Estimated GFR 60 >=60 mL/min/1.73 m?? Reticulocyte Count Result Value Ref Range Retic Ct % 2.6 0.7 - 2.6 % Retic Ct Abs 0.120 0.030 - 0.120 x10(6)/mcL Immature Retic% 17.8 (H) 0.0 - 15.6 % Reticulated Hgb 34.4 31.3 - 40.2 pg Hemogram Result Value Ref Range WBC 8.9 4.0 - 9.5 x10(3)/mcL RBC 4.54 (L) 4.58 - 5.54 x10(6)/mcL Hemoglobin 13.8 13.7 - 16.5 g/dL Hematocrit 40.2 (L) 40.5 - 48.5 % MCV 88.5 82.9 - 93.1 fL MCH 30.4 27.5 - 32.1 pg MCHC 34.3 32.0 - 35.7 g/dL Platelets 275 145 - 357 x10(3)/mcL RDWSD 42.9 36.0 - 45.0 fL RDWCV 13.4 11.4 - 13.8 % MPV 9.9 7.6 - 12.9 fL nRBC % Auto 0.0 % nRBC Abs Auto 0.000 0.000 - 0.000 x10(3)/mcL Differential, Automated Result Value Ref Range Neutrophils % 61.5 % Neutr Abs (ANC) 5.49 1.70 - 6.10 x10(3)/mcL Lymphocytes % 18.9 % Lymphocytes Abs 1.7 0.9 - 3.2 x10(3)/mcL Monocytes % 8.3 % Monocyte Abs 0.7 0.3 - 0.9 x10(3)/mcL Eosinophils % 10.1 % Eosinophils Abs 0.9 (H) 0.0 - 0.4 x10(3)/mcL Basophils % 1.0 % Basophils Abs 0.1 0.0 - 0.1 x10(3)/mcL Immature Gran % 0.20 % Ayesha Gran Abs 0.02 0.00 - 0.04 x10(3)/mcL Protein/Creatinine Ratio, urine Result Value Ref Range U Creatinine 86 mg/dL U Protein Ran 20 (H) 0 - 12 mg/dL Prot/Cre Ratio 0.2 ratio Urinalysis with reflex Culture Specimen: Clean Catch Urine Result Value Ref Range Glucose UA Negative Negative mg/dL Protein UA Trace (A) Negative mg/dL Bilirubin UA Negative Negative mg/dL Urobilinogen UA Normal Normal mg/dL pH UA 7.0 5.0 - 8.0 Blood UA Negative Negative mg/dL Ketones UA Negative Negative mg/dL Nitrite UA Negative Negative Leukocytes UA Negative Negative mcL Appearance UA Clear Clear Spec [place] UA 1.018 1.005 - 1.030 Color UA Yellow Yellow Culture Reflexed No Urinalysis Microscopic Exam Result Value Ref Range RBC UA 1 0 - 3 /HPF WBC UA 1 0 - 3 /HPF ?? IMPRESSION/ RECOMMENDATIONS:??Mr. Bolden is a??72??yr old gentleman w/ hx of kidney transplant who presents to clinic for??his annual??f/u??after receiving ??A DDKTx 09/2015 and a hospital follow up for diverticulitis. He seems to have recovered without having to undergo an abdominal exploration.No voiced complaints, BMs normal. ?? Transplant Status -s/p donor kidney transplant??7 yr post; with proteinuria <0.3 gm/day -Creatinine stable??1.26 mg/dL -Drinks??2L??fluids/day ?? PTDM -Patient now has PTDM treatment and is under care with his??PCP??and on Glipizide?? Needs better dietary control??still ? Immunosuppression -Prograf 1 mg bid, Cellcept 250 mg bid ?? Proteinuria Likely modoc kidney involvement, no nephrosis ? PO4/Mg - Magnesium??gluconate [phone] TID ?? Erythrocytosis -??cont' to observe No need of RAAS inhibition , continue hydration Close follow up? Hypertension: BP is??stable;??antihypertensives unchanged Amlodipine 5 QPM, hydralazine 100 mg bid, metop succinate 50 BID BP goal <130/80 Encourage to check BP at home?? -??on??Flomax ? Hepatitis C -on Harvoni?treatment -Viral load undetectable after treatment??in June 2018? CV disease, AF/Afib Followed by Dr. Kevin Ta discussion about multiple med problems and prognosis S/p Watchman ?? Hyperbilirubinemia Known gall stones and hepatic steatosis with normal liver enzymes in past TB then 2.5 ? n6zykjyal labs f/u 12 months ?? ? Discussion with the patient and/or family concerned the following: ?Diagnostic results or recommended studies ?Prognosis; ?Risks and benefits of management; ?Instructions for management; ?Compliance with treatment; ?Risk factor reduction; ?Patient and family education. ? Total time?25 of 30 min??in direct face to face substance abuse counselor. documented in this encounter Plan of Treatment Upcoming Encounters Date Type Department Care Team (Late st Contact Info) Description 04/15/2024 10:00 AM EDT Hospital Encounter Non[place] [address] Arrived documented as of this [...] organ transplant Other complication of kidney transplant Prophylactic immunotherapy Need for prophylactic immunotherapy longterm current use of 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 drug Vitamin D deficiency Unspecified vitamin D deficiency documented in this encounter Care Teams Ferryboat Pilot Relationship Specialty Start Date End Date Urbano Jimenez DO [address] [place] [address] PCP - General Family Medicine 03/18/22 Ruchi Valles RN Nurse Clinic Transplant Surgery 07/30/15 documented as of this encounter
--- OUTSIDE RECORDS SUMMARY | 2024-02-14 11:15 | XMS_ITS | Encounter Summary ---
[place] [address] Care Team Providers Care Jig Grinder Name Role Phone Urbano Jimenez Ray KIRBY Primary Care Provider [phone] Encounter Details Date Type Department Care Team (Late st Contact Info) Description 01/01/2023 Telephone [place] [id number] Mara Kimble Social History Tobacco Use Types [...] AM EDT Hospital Encounter Non-Invasive [place] [id number] Arrived documented as of this encounter Goals [...] on filedocumented in this encounter Care Teams Jig Grinder Relationship Specialty Start Date End Date Urbano Jimenez DO [address] [place] [address] PCP - General Family Medicine 03/18/22 Ruchi Valles RN Nurse Clinic Transplant Surgery 07/30/15 documented as of this encounter
--- OUTSIDE RECORDS SUMMARY | 2024-02-14 11:15 | XMS_ITS | Encounter Summary ---
Author Organization [facility] Address [facility] [place] [address] Care Team Providers Care Rhythmic Gymnastics Coach Name Role Phone Urbano Jimenez Ray KIRBY Primary Care Provider [phone] Reason for Visit * Reason Onset Date Comments Medication Refill 07/08/2023 Encounter Details Date Type Department Care Team (Late st Contact Info) Description 07/08/2023 Refill Cardiology at [address] [address] Byron Brown MD [facility] [place] [address] Medication Refill Social History Tobacco Use Types Packs/Day Years Used Date Smoking Tobacco: Light Smoker Cigars Smokeless Tobacco: Never Comments:cigars, one weekly Alcohol Use Standard Drinks/Week Comments No 0 (1 standard drink = 0.6 oz pur e alcohol) [facility] Inpatient Questions Answer Date Recorded Does Anyone [...] encounter Miscellaneous Notes * Telephone Encounter - Monica Roberson RN - 07/08/2023 4:04 PM EST JUDIT: 10/22/22 Per assessment and Plan: #increased fatigue since pacer implant -cause is not clear, but initially there was a concern about underlying AF/AFL. In the past few months he has been atrial paced and still feels the same so this unlikely to be the explanation -echo obtained today with LVEF 45-50%, about the same as prior #cardiomyopathy -he had a history of tachymyopathy that recovered in the past but it appears that he had a recurrence of this. His LVEF on 01/31/2022 was 45%, but the echo 12/2020 was normal. -he is on Bblocker -no ANNAMARIE/ARB at the moment, he is on hydralazine; history of kidney transplant. -other HF meds: manny could be considered, SGLT2i -Cr 1.26 (transplanted kidney) -trace to mild edema: may be secondary to amlodipine #history of PAF -most recent EC08/21/2022: a-paced -s/p dual chamber pacer (medtronic) for tachy-sakina summer 2021 -s/p Watchman -on Bblocker Follow-up plan: 1 year or prn Next f/u: 10/22/23 Monica Roberson [facility] [id number] documented in this encounter Plan of Treatment Upcoming Encounters Date Type Department Care Team (Late st Contact Info) Description 04/15/2024 10:00 AM EDT Hospital Encounter Non-[place] [address] Arrived documented as of this encounter Goals Goal Patient Goal Type Associated Problems Recent Progress Patient-Stated? Author [facility] Medication Compliance and Understanding Patient Facing Action Plan On track( 017 10:41 AM EDT) Selena Scott, [facility] Note: Patient Goal: Clear hepatitis C Timeframe to meet goal: within 12 weeks of therapy documented as of this encounter Visit Diagnoses Diagnosis Atrial fibrillation with RVR - had flutter initially, then fib Atrial fibrillation documented in this encounter Care Teams Rhythmic Gymnastics Coach Relationship Specialty Start Date End Date Urbano Jimenez DO [address] [place] [address] PCP - General Family Medicine 03/18/22 Ruchi Valles RN Nurse Clinic Transplant Surgery 07/30/15 documented as of this encounter
--- OUTSIDE RECORDS SUMMARY | 2024-02-14 11:15 | XMS_ITS | Encounter Summary ---
Author Organization [facility] [place] [address] Care Team Providers Care Installation Technician Name Role Phone Perrydeb Urbano Bell DO Primary Care Provider [phone] Encounter Details Date Type Department Care Team (Latest Contact Info) Description 10/10/2022 12:00 PM EDT Office Visit [place] [address] Cathie Yeager MD [facility] [place] [address] History of diverticulitis Social History Tobacco Use Types Packs/Day Years Used Date Smoking Tobacco: Light Smoker Cigars Smokeless Tobacco: Never Comments:cigars, one weekly Alcohol Use Standard Drinks/Week Comments No 0 (1 standard drink = 0.6 oz pur e alcohol) [facility] Inpatient Questions Answer Date Recorded Does [...] as of this encounter Progress Notes * Cathie Yeager MD - 10/10/2022 12:00 PM EDT [facility] Patient Name: Cody Bolden Patient Age: 72 y.o. Reason for Visit: Followup post hospitalization for diverticulitis Interval History: Mr. Bolden is a 72yoM with history of HTN, DM, CAD s/p PCI, tachy/sakina syndrome s/p PPM, Afib s/p Watchman procedure, hx basal ganglia hemorrhage, hx embolic stroke, hypothyroidism, BPH, ESRD s/p DDKT in 2015, who presented to [facility] on 09/14 due to diverticulitis with microperforation. He was managed medically with antibiotics during his stay, repeat CT scan was done on 09/17 without concern for progression and on 09/19 he was discharged on Augmentin. He reports that since that time, he has feltwell with absolutely no concerns from a GI standpoint. He is having daily formed BMs. He has had noabdominal pain. He is eating and drinking well. He has had no fevers/chills. He has had no nausea/vo miting. Exam: Physical Exam: General: NAD, appropriate and conversant HEENT: normocephalic, anicteric sclerae CVS: normal rate Pulm: breathing comfortably Abd: soft, non-tender, non-distended. No guarding. Initially one point palpated of tenderness in LLQ however with repeat palpation it was no longer present - it appeared I startled him the first time. Skin: warm, dry Neuro: Grossly intact, nonfocal, moving all four extremities spontaneously. Assessment and Plan: Mr. Bolden is a 72yoM with an extensive past medical history including prior renal transplant whopresents today for followup after his hospitalization for diverticulitis with microperforation. He reports that he has felt well with no return of any type of GI symptoms since. We discussed that anyrecurrent GI symptoms should prompt him to have an evaluation - he reports that his PCP has told him that he wants a phone call immediately should he have any symptoms. He is well aware of how important this is. I discussed the referral appointment with colorectal surgery in January - he wasn't aware of this but I explained why we placed this referral - that discussion with the colorectal team abouthis diverticulitis history and what role elective resection might play (or not) in the future. I answered some residual questions that he had from when he had been inpatient and had been told about different types of stomas. He was happy that he is feeling well right now. As above, he will call hisPCP promptly with any GI symptoms that arise, and he will followup with Dr. Berg. At this time, no ACS followup required. Follow Up: He is due to followup with Dr. Berg in January from colorectal surgery. documented in this encounter Plan of Treatment Upcoming Encounters Date Type Department Care Team (Late st Contact Info) Description 04/15/2024 10:00 AM EDT Hospital Encounter Non-[place] [address] Arrived documented as of this encounter Goals Goal Patient Goal Type Associated Problems Recent Progress Patient-Stated? Author [facility] Medication Compliance and Understanding Patient Facing Action Plan On track( 017 10:41 AM EDT) No Selena Cisneros, [facility] Note: Patient Goal: Clear hepatitis C Timeframe to meet goal: within 12 weeks of therapy documented as of this encounter Visit Diagnoses Diagnosis History of diverticulitis documented in this encounter Care Teams Installation Technician Relationship Specialty Start Date End Date Urbano Jimenez DO [address] [place] [address] PCP - General Family Medicine 03/18/22 Ruchi Valles RN Nurse Clinic Transplant Surgery 07/30/15 documented as of this encounter
--- OUTSIDE RECORDS SUMMARY | 2024-02-14 11:15 | XMS_ITS | Encounter Summary ---
Author Organization [facility] Address [facility] [place] [address] Care Team Providers Care Wagon Drill Operator Name Role Phone Tony Urbano Bell DO Primary Care Provider [phone] Reason for Visit * Reason Onset Date Comments Medication Refill 08/13/2023 Encounter Details Date Type Department Care Team (Late st Contact Info) Description 08/13/2023 Refill [place] [address] Gurdeep Boston, [facility] [place] [address] H/O kidney transplant Social History Tobacco Use [...] AM EDT Hospital Encounter Non-[place] [address] Arrived documented as of this encounter Goals [...] transplant documented in this encounter Care Teams Wagon Drill Operator Relationship Specialty Start Date End Date Urbano Jimenez DO [address] [place] [address] [place] [address] PCP - General Family Medicine 03/18/22 Ruchi Valles RN Nurse Clinic Transplant Surgery 07/30/15 documented as of this encounter
--- OUTSIDE RECORDS SUMMARY | 2024-02-14 11:15 | XMS_ITS | Encounter Summary ---
[place] [address] Care Team Providers Care Tandem Mill Sticker Name Role Phone PerrydebUrbano DO Primary Care Provider [phone] Encounter Details Date Type Department Care Team (Latest Contact Info) Description 10/10/2022 Travel Social History Tobacco Use Types Packs/Day [...] AM EDT Hospital Encounter Non-[place] [address] Arrived documented as of this encounter Goals Goal Patient Goal Type Associated Problems Recent Progress Patient-Stated? Author [facility] Medication Compliance and Understanding Patient Facing Action Plan On track( 017 10:41 AM EDT) No Selena Cisneros [facility] Note: Patient Goal: Clear hepatitis C Timeframe to meet goal: within 12 weeks of therapy documented as of this encounter Visit Diagnoses Not on filedocumented in this encounter Care Teams Tandem Mill Sticker Relationship Specialty Start Date End Date Urbano Jimenez DO [address] [place] [address] PCP - General Family Medicine 03/18/22 Ruchi Valles RN Nurse Clinic Transplant Surgery 07/30/15 documented as of this encounter
--- OUTSIDE RECORDS SUMMARY | 2024-02-14 11:15 | XMS_ITS | Encounter Summary ---
[place] [address] Care Team Providers Care Adjunct Psychology Faculty Member Name Role Phone PerrydebUrbano DO Primary Care Provider [phone] Encounter Details Date Type Department Care Team (Latest Contact Info) Description 10/22/2022 Travel Social History Tobacco Use Types Packs/Day [...] AM EDT Hospital Encounter Non[place] [address] Arrived documented as of this encounter Goals Goal Patient Goal Type Associated Problems Recent Progress Patient-Stated? Author [facility] Medication Compliance and Understanding Patient Facing Action Plan On track( 017 10:41 AM EDT) No Selena Cisneros [facility] Note: Patient Goal: Clear hepatitis C Timeframe to meet goal: within 12 weeks of therapy documented as of this encounter Visit Diagnoses Not on filedocumented in this encounter Care Teams Adjunct Psychology Faculty Member Relationship Specialty Start Date End Date Urbano Jimenez DO [address] [place] [address] PCP - General Family Medicine 03/18/22 Ruchi Valles RN Nurse Clinic Transplant Surgery 07/30/15 documented as of this encounter
--- OUTSIDE RECORDS SUMMARY | 2024-02-14 11:15 | XMS_ITS | Encounter Summary ---
[place] [address] Care Team Providers Care Computer Forwarding System Markup Clerk Name Role Phone Urbano Jimenez DO Primary Care Provider [phone] Encounter Details Date Type Department Care Team (Latest Contact Info) Description 10/23/2022 10:00 AM EDT - 10/23/2022 11:59 PM EDT Hospital Encounter Non-Invasive [place] [phone] Discharge Disposition: Home Social History Tobacco Use Types Packs/Day Years Used Date Smoking Tobacco: Light Smoker Cigars Smokeless Tobacco: Never Comments:cigars, one weekly Alcohol Use Standard Drinks/Week Comments No 0 (1 standard drink = 0.6 oz pur e alcohol) [facility] Inpatient Questions Answer Date Recorded [...] transplant,Aftercare following organ transplant,Other complication of kidney transplant,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 current use of 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 drug TAKE 2 [...] AM EDT Hospital Encounter Non-Invasive [place] [address] Arrived documented as of this encounter Goals [...] INTERROGATION REMOTE UP TO 90 DAYS Routine 10/21/2022 2:00 PM EDT documented in this encounter Results * Cardiac Device Check - Remote (10/21/2022 2:00 PM EDT) Anatomical Region Laterality Modality Other 10/21/2022 2:00 PM EDT Ryley Vargas MD IMPLANTABLE CARDIAC DEVICE documented in this encounter Visit Diagnoses Not on filedocumented in this encounter Care Teams Computer Forwarding System Markup Clerk Relationship Specialty Start Date End Date Urbano Jimenez DO [address] [place] [address] PCP - General Family Medicine 03/18/22 Ruchi Valles RN Nurse Clinic Transplant Surgery 07/30/15 documented as of this encounter
--- OUTSIDE RECORDS SUMMARY | 2024-02-14 11:15 | XMS_ITS | Encounter Summary ---
Author Organization [facility] [place] [address] Care Team Providers Care Utilization Review Rn Name Role Phone Urbano Jimenez DO Primary Care Provider [phone] Encounter Details Date Type Department Care Team (Late st Contact Info) Description 06/05/2023 Telephone Cardiology at [address] [phone] Kate Gastelum Social History Tobacco Use Types Packs/Day Years Used Date Smoking Tobacco: Light Smoker Cigars Smokeless Tobacco: Never Comments:cigars, one weekly Alcohol Use Standard Drinks/Week Comments No 0 (1 standard drink = 0.6 oz pur e alcohol) [facility] Inpatient Questions Answer Date Recorded Does [...] encounter Miscellaneous Notes * Telephone Encounter - Kate Gastelum - 06/05/2023 9:43 AM EST Pts called to let us know that he has appt for a device check at [facility] in August. Kate Gastelum EP Scheduling documented in this encounter Plan of Treatment Upcoming Encounters Date Type Department Care Team (Late st Contact Info) Description 04/15/2024 10:00 AM EDT Hospital Encounter Non-Invasive [place] [address] Arrived documented as of this encounter Goals [...] on filedocumented in this encounter Care Teams Utilization Review Rn Relationship Specialty Start Date End Date Urbano Jimenez DO [address] [place] [address] PCP - General Family Medicine 03/18/22 Ruchi Valles RN Nurse Clinic Transplant Surgery 07/30/15 documented as of this encounter
--- OUTSIDE RECORDS SUMMARY | 2024-02-14 11:16 | XMS_ITS | Encounter Summary ---
Author Organization [facility] [place] [address] Care Team Providers Care Side Piece Coverer Name Role Phone Urbano Jimenez Ray KIRBY Primary Care Provider [phone] Reason for Visit * Reason Onset Date Comments Medication Refill 07/28/2022 Encounter Details Date Type Department Care Team (Late st Contact Info) Description 07/28/2022 Refill [place] [address] Tal Eagle MD [facility] [place] [address] Other complication of kidney transplant; Prophylactic immunotherapy; H/O kidney transplant Social History [...] AM EDT Hospital Encounter Non-[place]vasive [place] [address] Arrived documented as of this encounter Goals Goal Patient Goal Type Associated Problems Recent Progress Patient-Stated? Author [facility] Medication Compliance and Understanding Patient Facing Action Plan On track( 017 10:41 AM EDT) Selena Scott, [facility] Note: Patient Goal: Clear hepatitis C Timeframe to meet goal: within 12 weeks of therapy documented as of this encounter Visit Diagnoses Diagnosis Other complication of kidney transplant Prophylactic immunotherapy Need for prophylactic immunotherapy H/O kidney transplant Kidney replaced by transplant documented in this encounter Care Teams Side Piece Coverer Relationship Specialty Start Date End Date Urbano Jimenez DO [address] [place] [address] PCP - General Family Medicine 03/18/22 Ruchi Valles RN Nurse Clinic Transplant Surgery 07/30/15 documented as of this encounter
--- OUTSIDE RECORDS SUMMARY | 2024-02-14 11:16 | XMS_ITS | Encounter Summary ---
[place] [address] Care Team Providers Care Brake Repairer Name Role Phone Urbano Jimenez DO Primary Care Provider [phone] Reason for Referral * Diagnostic Test (Routine) - Closed Specialty Diagnoses / Procedures Referred By Humberto flor Referred To Contact Cardiology Diagnoses Cardiomyopathy, unspecified type Procedures Echocardiogram Transthoracic Shaq Damon MD [facility] [place] [address] [facility] [place] [address] Referral ID Status Reason Start Date Expiration Date V isits Requested Visits Authorized [id number] Closed Specialty Service Requested 09/02/2022 09/02/2023 1 1 Encounter Details Date Type Department Care Team (Late st Contact Info) Description 09/02/2022 2:00 PM EST TH Visit (TeleHealth) Cardiology at [address] [address] Shaq Damon MD [facility] [place] [address] Cardiomyopathy, unspecified type Social History Tobacco Use [...] as of this encounter Progress Notes * Shaq Damon MD - 09/02/2022 2:00 PM EST Images from the original note were not included. [facility] [place] [address] CARDIOLOGY/ VASCULAR OUTPATIENT NOTE Ethel Bolden Urbano Jimenez, OFFICE VISIT : Mr. Bolden is a 71 y/o M w/ PMH HTN, T2DM, ASCVD s/p PCI to OM, iCM with recovered EF, atrial fibrillation (s/p Watchman due to intracranial bleed), tachy-sakina syndrome s/p PPM, ESRD s/p renal transplant, prior CVA, diverticulitis who??has been having general malaise/fatigue. ??This has been an issue previously - but he feels that this is worse since the time of the pacer implant (01/2022). ?? #increased fatigue since pacer implant -Ddx includes: increase in metoprolol since PPM, persistent AF burden despite pacing, hgb is normal -he is on Eliquis s/p Watchman. Has not completed 45 days yet. -device was interrogated by EP who encouraged the patient to remain on the same dose of Bblocker and they have scheduled him for DCCV in early Jul 2022. Loss of atrial kick may be contributing to thefatigue and mildly reduced LVEF. ?? #V-pacing with underlying AF -see notes above. ?? 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 ?His LVEF on 01/31/2022 was 45%, but the echo 12/2020 was normal. ?? -he is on Bblocker -no ANNAMARIE/ARB at the moment, history of kidney transplant. ??This may be a tachycardia mediated myopathy again, can hold at the moment. ? Follow-up plan: 1 month after DCCV with an ECG SUBJECTIVE: I spoke to Yash Bolden and his , Mara, by phone today. He was aware and agreed to a telehealth visit. Mr Bolden recently completed placement of an BATOOL occluder (watchman) and the post-procedure DAVEY in Jul 2022 with no leak. He was therefore able to stop anticoagulation (apixaban). He has a pacemaker in since summer 2021 and he and his report that he has had a sense of increased fatigue at that time. When we saw him in May 2022, we thought this might be related to underlying AF/AFL and consider DCCV - however, further device interrogation demonstrates that he has been atrial paced and is not in underlying AF/AFL for the past 6 weeks or more (he was seen at [facility] recently and told he did not have any AF since May 2022). During this time, he has continued to feel a sense of fatigue - so this is clearly not the answer to his fatigue question. He notes that he does have a cold at the moment and is not feeling 100%. However, overall he does not have any significant complaints. He is establishing care with the [facility] as well. Meds: Current Outpatient Medications Medication Sig Dispense Refill ??? Magnesium Gluconate 27 mg magnesium (500 [...] AND ONE CAPSULE NIGHTLY 270 capsule 2 ??? aspirin EC 81 mg Tablet, Delayed Release (E.C.) Take 1 tablet by mouth daily for 120 days. 30 tablet 3 ??? hydrALAZINE (Apresoline) 100 mg Tablet Take 1 tablet by mouth 2 times daily. 180 tablet 1 ??? metoprolol succinate XL (Toprol-XL) 50 mg [...] 5 minutes as needed for Chest pain. (Patient not taking: Reported on 07/15/2022) 90 tablet 12 ??? tamsulosin (FLOMAX) 0.4 mg Capsule Take 0.4 mg by mouth daily. ??? acetaminophen (TYLENOL) 500 mg Tablet Take 1,000 mg by mouth every 8 hours as needed for Pain. ??? levothyroxine (SYNTHROID) 137 mcg Tablet Take 137 mcg by mouth daily. telehealth (no exam today) Most recent labs or other cardiac testing: Latest Reference Range & Units 05/23/22 09:04 Sodium 135 - 145 mmol/L 141 Potassium 3.5 - 5.0 mmol/L 4.3 Chloride 98 - 107 mmol/L 103 CO2 22 - 31 mmol/L 29 Anion Gap 5 - 15 mmol/L 9 BUN 10 - 20 mg/dL 21 (H) Creatinine 0.80 - 1.50 mg/dL 1.60 (H) Estimated GFR >=60 mL/min/1.73 m?? 45 (L) Calcium 8.5 - 10.5 mg/dL 10.1 Magnesium 0.69 - 1.07 mmol/L 0.66 (L) Phosphorus 2.5 - 4.5 mg/dL 3.0 Uric Acid 3.5 - 8.5 mg/dL 7.5 Glucose Lvl 65 - 199 mg/dL 140 (H): Data is abnormally high (L): Data is abnormally low Pacemaker Check: 06/20/22 - on ELIQUIS. MAB~~Pacemaker Report~Monitoring period:06/02/22- 06/17/22~~Battery/Lead Status:13.6 years/RA lead Intrinsic P-wave chronically measured < 1 mV~~Ap:64.2%~Assistant Teacher Primary:10.0%~~Device Defined Counters:~Atrial Fibrillation/Flutter: 0~Trending illustrates atrial events without EGMs.~AF burden 26.1% Echo Interpretation Summary Post-Watchman DAVEY follow up. There is a 27 mm Watchman FLX well seated in the BATOOL position without evidence of thrombus or mary-device leak. Spontaneous echo contrast is present in the LA c/w stasis. A pinhole-sized, secundum atrial septal defect (post-transseptal punction) is noted. ASSESSMENT / PLAN: Mr. Bolden is a 72 y/o M w/ PMH HTN, T2DM, ASCVD s/p PCI to OM, atrial fibrillation (s/p Watchmandue to intracranial bleed), tachy-sakina syndrome s/p PPM summer 2021, ESRD s/p renal transplant, prior CVA, diverticulitis who??has been having general malaise/fatigue. ??This has been an issue previously - but he feels that this is worse since the time of the pacer implant (01/2022). ?? #increased fatigue since pacer implant -cause is not clear, but initially there was a concern about underlying AF/AFL. In the past few months he has been atrial paced and still feels the same so this is not the explanation. -He should have an echo at his next follow-up to confirm LVEF (pacer induced ?) #cardiomyopathy -he had a history of tachymyopathy that recovered in the past but it appears that he had a recurrence of this. ?His LVEF on 01/31/2022 was 45%, but the echo 12/2020 was normal. ?? -he is on Bblocker -no ANNAMARIE/ARB at the moment, he is on hydralazine; history of kidney transplant. ?? -Cr 1.6 with GFR 45 although transplanted kidney #history of PAF -most recent EC08/21/2022: a-paced -s/p dual chamber pacer (medtronic) for tachy-sakina summer 2021 -s/p Watchman -on Bblocker Follow-up plan: October 2022 with an echo at that time Shaq Damon MD, FACC Cardiovascular Medicine [facility] [address] Clinic [phone] Clinic Team Nurse: [phone] Estimated time : 30 minutes total time in review of lab tests, evaluation, education of suggested medication, ordering medications and tests, communicating care coordination, and documentation of my findings and recommendations. documented in this encounter Plan of Treatment Upcoming Encounters Date Type Department Care Team (Late st Contact Info) Description 04/15/2024 10:00 AM EDT Hospital Encounter Non-Invasive Cardiology [place] [phone] Arrived documented as of this encounter Goals Goal Patient Goal Type Associated Problems Recent Progress Patient-Stated? Author DH Home Medication Compliance and Understanding Patient Facing Action Plan On track( 017 10:41 AM EDT) No Selena Cisneros, [facility] Note: Patient Goal: Clear hepatitis C Timeframe to meet goal: within 12 weeks of therapy documented as of this encounter Results * ECHO COMPLETE (10/22/2022 1:00 PM EDT) Pathologist [facility] EF 52 HEARTLAB SYSTEM Anatomical Region Laterality Modality Cardiac Other 10/22/2022 11:5 9 AM EDT Narrative 10/22/2022 1:20 PM EDT ? Echocardiogram Report Name: ETHEL BOLDEN ?Study Date: 10/22/2022 11:59 AMBP: 128/68 mmHg ? Patient Location: : 1950 ? Height: 180 cm ? Account: [id number] Age: 72 yrs ? Weight: 101 kg Gender: Male ?BSA: 2.2 m2 Ordering Physician: SHAQ DAMON Referring Physician: SHAQ DAMON Performed By: Leial Max RDCS Reason For Study: Cardiomyopathy Exam Location: [facility]. Interpretation Summary 1. Left ventricular function [...] 02/19/2022, LV function visually appears similar. Procedure Complete-[id number]. Left ventricular strain. Satisfactory quality. Left Ventricle [...] Location: : 1950 Height: 180 cm Account: [id number] Age: 72 yrs Weight: 101 kg Gender: Male BSA: 2.2 m2 Ordering Physician: SHAQ DAMON Referring Physician: SHAQ DAMON Performed By: Leila Max RDCS Reason For Study: Cardiomyopathy Exam Location: [facility]. Interpretation Summary 1. Left ventricular function [...] echo 02/19/2022, LV function visually appearssimilar. Procedure Complete-[id number]. Left ventricular strain. Satisfactory quality. Left Ventricle [...] 3-5moderate 5 - 6-14large Aneurysmal 15-16diffuse Shaq Damon MD ECHO ORDERABLES documented in this encounter Visit Diagnoses Diagnosis Cardiomyopathy, unspecified type Cardiomyopathy, unspecified type documented in this encounter Care Teams Brake Repairer Relationship Specialty Start Date End Date Urbano Jimenez DO [address] [place] [address] PCP - General Family Medicine 03/18/22 Ruchi Valles RN Nurse Clinic Transplant Surgery 07/30/15 documented as of this encounter
--- OUTSIDE RECORDS SUMMARY | 2024-02-14 11:16 | XMS_ITS | Encounter Summary ---
Author Organization [facility] [place] [address] Care Team Providers Care Security Screener Name Role Phone Urbano Jimenez Ray KIRBY Primary Care Provider [phone] Reason for Visit * Reason Comments Medication Refill Encounter Details Date Type Department Care Team (Late st Contact Info) Description 09/01/2022 Refill [place] [phone] Gurdeep Boston REGISTERED RESPIRATORY THERAPIST [facility] [place] [address] H/O kidney transplant; Aftercare following organ transplant; [...] AM EDT Hospital Encounter Non-[place] [phone] Arrived documented as of this encounter Goals [...] organ transplant Other complication of kidney transplant 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
--- OUTSIDE RECORDS SUMMARY | 2024-02-14 11:16 | XMS_ITS | Encounter Summary ---
[place] [address] Care Team Providers Care Electromatic Typist Name Role Phone Urbano Jimenez DO Primary Care Provider [phone] Encounter Details Date Type Department Care Team (Late st Contact Info) Description 06/02/2022 Telephone Cardiology at [address] [phone] Urbano Padilla, RN Social History Tobacco Use Types Packs/Day [...] encounter Miscellaneous Notes * Telephone Encounter - Urbano Padilla RN - 06/02/2022 11:47 AM EST Called to the 4 A Exit Desk to assist with patient concern. Pleasant in person connection with Mrs.Susan Bolden. Seeking telephonic connection with the Structural Heart Scheduling Team - at their availability to discuss expediting her 's post Watchman follow up DAVEY - currently scheduled for 07/15/2021. Best contact number is [phone]. Note routed to the Structural Heart Team as requested. Karthik Padilla RNnursing home assistant administrator Team Nurse [facility] Ambulatory Cardiology documented in this encounter Plan of Treatment Upcoming Encounters Date Type Department Care Team (Late st Contact Info) Description 04/15/2024 10:00 AM EDT Hospital Encounter [place] [address] Arrived documented as of this encounter Goals Goal Patient Goal Type Associated Problems Recent Progress Patient-Stated? Author DH Home Medication Compliance and Understanding Patient Facing Action Plan On track( 017 10:41 AM EDT) Selena Scott, [facility] Note: Patient Goal: Clear hepatitis C Timeframe to meet goal: within 12 weeks of therapy documented as of this encounter Visit Diagnoses Not on filedocumented in this encounter Care Teams Electromatic Typist Relationship Specialty Start Date End Date Urbano Jimenez DO [address] [place] [address] PCP - General Family Medicine 03/18/22 Ruchi Valles RN Nurse Clinic Transplant Surgery 07/30/15 documented as of this encounter
--- OUTSIDE RECORDS SUMMARY | 2024-02-14 11:16 | XMS_ITS | Encounter Summary ---
Author Organization [facility] [place] [address] Care Team Providers Care Cylinder Devalver Name Role Phone Urbano Jimenez DO Primary Care Provider [phone] Encounter Details Date Type Department Care Team (Latest Contact Info) Description 05/23/2022 Travel Social History Tobacco Use Types Packs/Day Years Used Date Smoking Tobacco: Light Smoker Cigarettes Last attempted t o quit: 01/02/1985 Cigars Smokeless Tobacco: Never Comments:cigars, one weekly [...] AM EDT Hospital Encounter Non-[place] [address] Arrived documented as of this encounter Goals Goal Patient Goal Type Associated Problems Recent Progress Patient-Stated? Author Home Medication Compliance and Understanding Patient Facing Action Plan On track( 017 10:41 AM EDT) No Selena Cisneros, [facility] Note: Patient Goal: Clear hepatitis C Timeframe to meet goal: within 12 weeks of therapy documented as of this encounter Visit Diagnoses Not on filedocumented in this encounter Care Teams Cylinder Devalver Relationship Specialty Start Date End Date Urbano Jimenez DO [address] [place] [address] PCP - General Family Medicine 03/18/22 Ruchi Valles RN Nurse Clinic Transplant Surgery 07/30/15 documented as of this encounter
--- OUTSIDE RECORDS SUMMARY | 2024-02-14 11:16 | XMS_ITS | Encounter Summary ---
Author Organization [facility] [place] [address] Care Team Providers Care Rigger Helper Name Role Phone Urbano Jimenez Ray KIRBY Primary Care Provider [phone] Encounter Details Date Type Department Care Team (Late st Contact Info) Description 09/12/2022 Ancillary Procedure [place] [phone] Tang Jin MD [facility] [place] [address] Social History Tobacco Use Types Packs/Day Years [...] EDT Hospital Encounter Non-Invasive [place] [phone] Arrived documented as of this encounter Goals Goal Patient Goal Type Associated Problems Recent Progress Patient-Stated? Author [facility] Medication Compliance and Understanding Patient Facing Action Plan On track( 017 10:41 AM EDT) No Selena Cisneros [facility] Note: Patient Goal: Clear hepatitis C Timeframe to meet goal: within 12 weeks of therapy documented as of this encounter Procedures Procedure Name Priority Date/Time Associated Diagnosis Comments FILM LIBRARY STORAGE ONLY CT ABDOMEN AND PELVIS Routine 09/12/2022 12:00 AM EST documented in this encounter Results * Film Library- Storage Only CT Abdomen & Pelvis (09/12/2022 12:00 AM EST) Narrative [facility] - 09/13/2022 5:04 PM EST This exam is auto-finalizing. It's purpose is for storage only. Tang Jin MD IMG FILM LIBRARY ORD ERABLES [place], [place] documented in this encounter Visit Diagnoses Not on filedocumented in this encounter Care Teams Rigger Helper Relationship Specialty Start Date End Date Urbano Jimenez DO [address] [place] [address] PCP - General Family Medicine 03/18/22 Ruchi Valles RN Nurse Clinic Transplant Surgery 07/30/15 documented as of this encounter
--- OUTSIDE RECORDS SUMMARY | 2024-02-14 11:16 | XMS_ITS | Encounter Summary ---
Author Organization [facility] [place] [address] Care Team Providers Care Tank Refinisher Name Role Phone Urbano Jimenez DO Primary Care Provider [phone] Encounter Details Date Type Department Care Team (Latest Contact Info) Description 08/06/2022 Orders Only Solid [place] [phone] Urbano Houston LPN H/O kidney transplant; nursing home current use of 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 drug; Vitamin D [...] AM EDT Hospital Encounter Non-[place] [phone] Arrived documented as of this encounter Goals Goal Patient Goal Type Associated Problems Recent Progress Patient-Stated? Author [facility] Medication Compliance and Understanding Patient Facing Action Plan On track( 017 10:41 AM EDT) No Selena Cisneros, [facility] Note: Patient Goal: Clear hepatitis C Timeframe to meet goal: within 12 weeks of therapy documented as of this encounter Results * (ABNORMAL) Protein/Creatinine Ratio, urine (10/10/2022 9:02 AM EDT) Creatinine, Urine 86 mg/dL [facility] Protein, Urine 20(H) 0 - 12 mg/dL [facility] Protein / Creatinine Ratio, Urine 0.2 ratio [facility] Urine 10/10/2022 9:02 AM EDT 10/10/2022 9:08 AM EDT Narrative Resulting Agency Comment Spec In Lab Gurdeep Boston IVETH URINE ORDERABLES [facility] [place] [address] * (ABNORMAL) Urinalysis with reflex Culture (10/10/2022 9:02 AM EDT) Glucose, Urine Dipstick Negative Negative mg/dL [facility] Protein, Urine Dipstick Trace(A) Negative mg/dL [facility] Bilirubin, Urine Dipstick Negative Negative mg/dL [facility] Comment: Clinical correlation required for positive Urine Bilirubin results as false positive may occur with some drugs and drug related products. If a false positive is suspected a serum total bilirubin should be considered if clinically indicated. Urobilinogen, Urine Dipstick Normal Normal mg/dL [facility] pH, Urn (dipstick) 7.0 5.0 - 8.0 [facility] Blood, Urine Dipstick Negative Negative mg/dL [facility] Ketone, Urine Dipstick Negative Negative mg/dL [facility] Nitrite, Urine Dipstick Negative Negative [facility] Leukocytes, Urine Dipstick Negative Negative mcL [facility] Appearance, Urine Dipstick Clear Clear [facility] Specific [place] Urine Automated 1.018 1.005 - 1.030 [facility] Color, Urine Dipstick Yellow Yellow [facility] Reflex to Culture No [facility] Clean Catch Urine 10/10/2022 9:02 AM EDT 10/10/2022 9:08 AM EDT Narrative Resulting Agency Comment Spec In Lab Gurdeep Boston RECEIVING SUPERVISOR URINE ORDERABLES Performing Organization Address City/[facility]/ZIP Co de Phone Number [facility] [place] [address] * BKV Quant Blood (10/10/2022 8:22 AM EDT) BKV Blood Result Not Detected Not Detected IU/mL [facility] Comment: Indication for Study: Monitoring BKV DNA Analysis: The ester BKV test is an in vitro nucleic acid amplification tests using real-time polymerase chain reaction (PCR) assay for the quantitative measurement of BK virus (BKV) DNA in human EDTA plasma. Sample: EDTA plasma Method: ester BKV test used with the AfterSteps0 platform (UShealthrecord) Linear Range: 21.5 - 1.0 x 10^8 IU/mL (1.33 - 8.00 log IU/mL) Note: The Kirsten ester BKV assay has been cleared by the U.S. Food and Drug Administration for clinical testing. Blood 10/10/2022 8:22 AM EDT 10/10/2022 10:31 AM EDT Narrative Resulting Agency Comment Spec In Lab Gurdeep Boston APRN MOLECULAR ORDERABLES Performing Organization Address [facility] Co de Phone Number [facility] [place] [address] * Tacrolimus level (10/10/2022 8:22 AM EDT) Tacrolimus 6.2 ng/mL [facility] Comment: Trough therapeutic range is 3-15 [...] Agency Comment Spec In Lab Gurdeep Boston RECEIVING SUPERVISOR CHEMISTRY ORDERABLES Performing Organization Address [facility]/ZIP Co de Phone Number [facility] [place] [address] * Uric acid (10/10/2022 8:22 AM EDT) Uric Acid 6.4 3.5 - 8.5 mg/dL [facility] Blood 10/10/2022 8:22 AM EDT 10/10/2022 8:26 AM EDT Narrative Resulting Agency Comment Spec In Lab Gurdeep Boston RECEIVING SUPERVISOR CHEMISTRY ORDERABLES [facility] [place] [address] * (ABNORMAL) Magnesium (10/10/2022 8:22 AM EDT) Pathologist [facility] Magnesium 0.64(L) 0.69 - 1.07 mmol/L [facility] Blood 10/10/2022 8:22 AM EDT 10/10/2022 8:26 AM EDT Narrative Resulting Agency Comment Spec In Lab Gurdeepdavid Rivasling RECEIVING SUPERVISOR CHEMISTRY ORDERABLES [facility] [place] [address] * Phosphorus (10/10/2022 8:22 AM EDT) Phosphorus 2.5 2.5 - 4.5 mg/dL [facility] Blood 10/10/2022 8:22 AM EDT 10/10/2022 8:26 AM EDT Narrative Resulting Agency Comment Spec In Lab Gurdeep Rivasling RECEIVING SUPERVISOR CHEMISTRY ORDERABLES [facility] [place] [address] * Lipid Panel (Reflex Direct LDL) (10/10/2022 8:22 AM EDT) Cholesterol, Total 99 mg/dL [facility] Comment: Lower Risk: <200 mg/dL Average Risk: 200-239 mg/dL Higher Risk: >oh=656 mg/dL Triglyceride 197 mg/dL [facility] Comment: Average Risk/Lower Risk: <150 mg/dL Borderline High Risk: 150-199 mg/dL High Risk: 200-499 mg/dL Very High Risk: >vu=700 mg/dL HDL Cholesterol 35 mg/dL [facility] Comment: Males: ?? Higher Risk: <40 mg/dL Females: ?? Higher Risk: <50 mg/dL LDL Cholesterol 25 mg/dL [facility] Comment: Lowest Risk: <100 mg/dL Lower Risk: 100-129 mg/dL Borderline High Risk: 130-159 mg/dL High Risk: 160-189 mg/dL Very High Risk: >md=156 mg/dL Cholesterol/HDL Ratio 2.8 ratio [facility] Lipid Interpretation See Note [facility] Comment: Lipid management should be guided by a patient? s ASCVD risk, goals and preferences. ACC/AHA Guidelines recommend high intensity statin if clinical ASCVD or LDL greater than or equal to 190 mg/dL. http://Thinkful.com/MYK-CCK-Ecvgyjqvr Adults aged 40-75 with LDL 70-189 mg/dL should have their 10 year ASCVD risk estimated with the ACC/AHA ASCVD risk building estimator http://tools.acc.org/PBRDB-Phvz-Zrwjytfgp/ Statin should be discussed if risk greater [...] Agency Comment Spec In Lab Gurdeep Boston APRN CHEMISTRY ORDERABLES [facility] [place] [address] * (ABNORMAL) Comprehensive metabolic panel (non-fasting) (10/10/2022 8:22 AM EDT) Glucose 183 65 - 199 mg/dL [facility] Comment:Diabetes: >=200 mg/d L plus symptoms Blood Urea Nitrogen 15 10 - 20 mg/dL [facility] Creatinine 1.26 0.80 - 1.50 mg/dL [facility] Sodium 143 135 - 145 mmol/L [facility] Potassium 4.2 3.5 - 5.0 mmol/L [facility] Comment: Please note: ??Patients with WBC >100,000 may have falsely elevated Potassium levels. ??For accurate Potassium quantification in these patients send serum separator tube (gold top) for subsequent determinations. ??Contact the Clinical Chemistry Laboratory if there are any questions. Chloride 104 98 - 107 mmol/L [facility] Carbon Dioxide 28 22 - 31 mmol/L [facility] Anion Gap 11 5 - 15 mmol/L [facility] Calcium 9.9 8.5 - 10.5 mg/dL [facility] Protein, Total 7.2 6.1 - 8.0 g/dL [facility] Albumin 4.2 3.2 - 5.2 g/dL [facility] Aspartate Aminotransferase 22 0 - 39 unit/L [facility] Alanine Aminotransferase 22 0 - 55 unit/L [facility] Alkaline Phosphatase 84 40 - 130 unit/L [facility] Bilirubin, Total 2.0(H) 0.2 - 1.3 mg/dL [facility] Est Glomerular Filtration Rate 60 >=60 mL/min/1. 73 m?? [facility] Comment: This patient's estimated GFR [...] Agency Comment Spec In Lab Gurdeep Boston RECEIVING SUPERVISOR CHEMISTRY ORDERABLES Performing Organization Address City/[facility]/ZIP Co de Phone Number [facility] [place] [address] * (ABNORMAL) Reticulocyte Count (10/10/2022 8:22 AM EDT) Reticulocyte % 2.6 0.7 - 2.6 % [facility] Retic Abs # 0.120 0.030 - 0.120 x10(6)/mcL [facility] Immature Retic% 17.8(H) 0.0 - 15.6 % [facility] Reticulated Hgb 34.4 31.3 - 40.2 pg [facility] Blood 10/10/2022 8:22 AM EDT 10/10/2022 8:26 AM EDT Narrative Resulting Agency Comment Spec In Lab Gurdeep Boston RECEIVING SUPERVISOR HEMATOLOGY ORDERABLE S Performing Organization Address [facility]/ZIP Co de Phone Number [facility] [place] [address] documented in this encounter Visit Diagnoses Diagnosis H/O kidney transplant Kidney replaced by transplant nursing home current use of 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 drug Vitamin D deficiency Unspecified vitamin D deficiency documented in this encounter Care Teams Tank Refinisher Relationship Specialty Start Date End Date Urbano Jimenez DO [address] [place] [id number] PCP - General Family Medicine 03/18/22 Ruchi Valles RN Nurse Clinic Transplant Surgery 07/30/15 documented as of this encounter
--- OUTSIDE RECORDS SUMMARY | 2024-02-14 11:16 | XMS_ITS | Encounter Summary ---
Author Organization [facility] [place] [address] Care Team Providers Care Pharmacometrician Name Role Phone Tony Urbano Ray KIRBY Primary Care Provider [phone] Reason for Visit * Auth/Cert (Routine) Specialty Diagnoses / Procedures Referred By Contac t Referred To Contact Diagnoses Other persistent atrial fibrillation Persistent atrial fibrillation S/P BATOOL 45D F/U Procedures PRG DAVEY REAL TIME IMG 2D W PRB IMG ACQUIS I&R TRANSESOPHAGEAL ECHOCARDIOGRAM (WRVU 2.55) Liseth Calero MD [facility] [place] [address] [facility] Referral ID Status Reason Start Date Expiration Date Visits Re quested Visits Authorized [id number] 1 1 Encounter Details Date Type Department Care Team (Late st Contact Info) Description 07/15/2022 10:47 AM EST Anesthesia Event [place] [address] Joseph Vigil DO [facility] [place]EST[place] [address] Destin Bond CRNA Anesthesia Record Procedure Summary Procedure Name Responsible Anesthesiologist Anesthesia Start Time Anesthesia Stop Time TRANSESOPHAGEAL ECHOCARDIOGRAM (WRVU 2.3) Joseph Vigil DO 07/15/22 1047 07/15/22 1115 Events Date Time Event Comment 07/15/2022 1014 1047 AN Verify 1047 Start 1047 An Start Data 1054 Anesthesia Ready 1100 Procedure Start 111 Procedure Stop 1115 an stop data 1115 Recovery or ICU Handoff Alanna ent care was transferred to the destination unit staff after review of the patient's medical history, current anesthetic/surgical status and plan, according to the Provider Handoff Checklist. 1115 Stop Meds Name Total Propofol 100 mg Propofol INF 208.95 mg Lactated Ringers 100 mL * Agents Name O2 Air N2O O2 Auxiliary Flowmeter 1 * Blood No blood administrations on file. Lines, Drains, and Airways Type Details Placement Removal Hemodialysis AV Access Device - Single Lumen 02/02/19; 1031; upper arm, left 02/02/19 1031 by Sharon Ruth RN Incision 01/31/22; 1210; Righ t; chest 01/31/22 1210 by Steffen Mora, JADEN (RETIRED) Peripheral IV Line - Single Lumen 07/15/22; 1044; median cubital vein (antecubital fossa), right; [id number] catheter system; Anatomical Landmarks; 20 gauge; ewelina; 07/15/22; 1342 07/15/22 1044 by Ewelina Levine RN 07/15/22 1342 by Tal Acevedo RN documented in this encounter Social History Tobacco Use Types Packs/Day Years [...] on file documented as of this encounter OR Notes * Anesthesia Postprocedure Evaluation - Joseph Vigil DO - 07/15/2022 3:00 PM EST Department of Anesthesiology Post-procedure Note Patient: Cody Bolden Procedure Summary Date: 07/15/22 Room / Location: [facility] / [facility] OR Anesthesia Start: 1046 Anesthesia Stop: 1114 Procedure: TRANSESOPHAGEAL ECHOCARDIOGRAM (WRVU 2.55) Diagnosis: Persistent atrial fibrillation (Persistent atrial fibrillation) Surgeons: Ruchi Park MD Responsible Provider: Joseph Vigil DO Anesthesia Type: general ASA Status: 3 All Anesthesia Providers: Anesthesiologist: Joseph Vigil DO ASSEMBLY INSTRUCTIONS WRITER: Destin Bond CRNA Vitals Value Taken Time BP 122/74 07/15/22 1315 Temp 36.4 ??C (97.5 ??F) 07/15/22 1121 Pulse 64 07/15/22 1201 Resp 16 07/15/22 1300 SpO2 94 % 07/15/22 1321 Pain Level Vitals shown include unvalidated device data. Patient Location: PACU/[facility] Level of Consciousness: Awake and Alert Pain Management: Satisfactory Analgesia PONV: None Cardiovascular Status: At Baseline and Hemodynamically Stable Respiratory Status: At Baseline and Room Air Postoperative Fluid Status: Intravascular EUvolemia Possible Anesthetic Complications: NONE apparent at time of evaluation Final Primary Anesthesia Type: General (The anesthetic type performed was the same as planned.) Comments: Joseph Vigil DO * Anesthesia Preprocedure Evaluation - Joseph Vigil DO - 07/15/2022 10:13 AM EST Pre-Anesthesia Evaluation for: Cody Bolden a 71 y.o. male. Procedure(s): [facility] Patient Active Problem List Diagnosis Date Noted ??? Atrial fibrillation 05/08/2022 ??? Aortic stenosis, mild 03/18/2022 ??? Mitral regurgitation 03/18/2022 ??? Pacemaker 01/31/2022 ??? 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 ??? Postprandial RUQ pain 10/22/2021 ??? Gall stones 10/22/2021 ??? Tobacco abuse counseling 10/08/2020 ??? Herniated lumbar intervertebral disc 05/10/2020 ??? CAD (coronary artery disease) 11/24/2019 ??? Left leg pain 05/30/2019 ??? Atrial fibrillation with RVR - had flutter initially, then fib 01/31/2019 ??? Hydronephrosis 06/16/2018 ??? Obesity (BMI 30.0-34.9) 11/10/2017 ??? Debility 10/05/2017 ??? Pain of right lower extremity 10/05/2017 ??? Vitamin D deficiency 09/20/2017 ??? Prophylactic immunotherapy 09/22/2016 ??? long term care phlebotomist current use of 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 drug 09/22/2016 ??? CAH (chronic active hepatitis) 08/25/2016 ??? Type 2 diabetes mellitus with complication, without long-term current use of insulin 08/12/2016 ??? H/O kidney transplant 06/13/2016 ??? Aftercare following organ transplant 06/13/2016 ??? Dehydration 05/13/2016 ??? Ureteral stricture 04/29/2016 ??? Enterococcal bacteremia 02/05/2016 ??? Other complication of kidney transplant 11/12/2015 ??? Hepatitis C virus infection 01/04/2015 ??? CGN (chronic glomerulonephritis) 10/16/2014 ??? Hypertension 09/03/2012 ??? DJD (degenerative joint disease) 09/03/2012 ??? Hematuria 09/03/2012 Past Medical History: Diagnosis Date ??? RAY (acute kidney injury) 11/27/2015 ??? Back pain ??? Chronic pain ??? Colon polyp ??? CVA (cerebral vascular accident) Per report but no deficits ??? Diabetes ??? ESRD (end stage renal disease) ??? Gastroesophageal reflux ??? GERD (gastroesophageal reflux disease) ??? High blood pressure ??? HTN (hypertension) ??? Irregular heart beat ??? Kidney failure ??? Liver disease ??? Microhematuria ??? S/P R TKA 11/25/17 Dr. Dale 11/25/2017 ??? Sepsis 06/22/2016 ??? Stroke ??? Type 2 diabetes mellitus ??? Weight increase 08/12/2016 Past Surgical History: Procedure Laterality Date ??? JOINT REPLACEMENT new right knee ??? PRG FL[facility]OROS[facility] EX[facility]A 05/10/2020 FLUOROSCOPY (WRVU 0.17) performed by Joseph Ang MD at [facility] MA[facility] OR ??? PRO ANASTOMOSIS, AV, ANY SITE Left 05/09/2015 AV FISTULA CREATION, DIRECT HEMODIALYSIS, ANY SITE, EG ASHWINI FISTULA UPPER EXTREMITY performed by Que Amaro MD at [facility] OR ? ? PRO ARTHROPLASTY KNEE CONDYLE & PLATEAU MEDIAL & LAT COMPARTMENTS Right 11/25/2017 TOTAL KNEE ARTHROPLASTY (WRVU 20.72) performed by Breezy Dale MD at [facility] OR ??? PRO CYSTOURETHROSCOPY, URETER CATHETER Left 06/17/2018 CYSTO, RETROGRADE, URETEROPYELOGRAPHY (WRVU 2.37) [facility] Ed[facility] III[facility] ??? PRO LAMINEC/FACETECT/FORAMIN, LUMBAR 1 SEG N/A 05/10/2020 LAMINECTOMY, FACETECTOMY & FORAMINOTOMY,LUMBAR, ONE LEVEL (WRVU 15.37) performed by Joseph Ang MD at [facility] OR ??? PRO LAMINOTOMY, LUMBAR DISK, 1 INTRSP N/A 05/10/2020 LAMINOTOMY, DECOMPRESSION, FORAMINOTOMY, LUMBAR (WRVU 13.18) performed by Joseph Ang MD at [facility] OR ??? PRO MICROSURG TECHNIQUES, REQ OPER MICROSCOPE N/A 05/10/2020 MICROSCOPE USE (WRVU 3.46) performed by Joseph Ang MD at [facility] OR ??? PRO PERQ CLSR TCAT L ATR APNDGE W/ENDOCARDIAL IMPLNT N/A 05/08/2022 @PERQ TRANSCATH CLOSURE LEFT ATRIAL APPENDAGE W ENDOCARDIAL IMPLANT, INC RAD S&I (WRVU 14) performed by Tal Diana MD at [facility] CATH LABS ??? PRO REIMPLANT URETER, SINGLE URETER Left 05/20/2016 @URETERONEOCYSTOSTOMY ANASTOMOSIS OF SINGLE URETER TO BLADDER performed by Santosh Arredondo MD at [facility] OR ??? PRO REIMPLANT URETER, SINGLE URETER N/A 05/20/2016 @URETERONEOCYSTOSTOMY ANASTOMOSIS OF SINGLE URETER TO BLADDER performed by Que Amaro MD at [facility] OR ??? PRO TRANSPLANT, PREP CADAVER RENAL GRAFT N/A 09/16/2015 @PREPARATION CADAVERIC RENAL ALLOGRAFT performed by Franko Larkin MD at [facility] OR ??? PRO TRANSPLANTATION OF KIDNEY N/A 09/16/2015 @KIDNEY TRANSPLANT, WITHOUT RECIPIENT NEPHRECTOMY performed by Franko Larkin MD at [facility] MAIN OR ??? TISSUE TRANSFER kidney ??? US RENAL TRANSPLANT LEFT Left 01/31/2019 US Renal Transplant Left 01/31/2019 [facility] RAD ULTRASOUND ??? US RENAL TRANSPLANT LEFT Left 02/07/2019 US Renal Transplant Left 02/07/2019 [facility] RAD ULTRASOUND Social History Tobacco Use ??? Smoking status: Light Smoker Types: Cigars ??? Smokeless tobacco: Never ??? Tobacco comments: cigars, one weekly Substance Use Topics ??? Alcohol use: No Social History Substance and Sexual Activity Drug Use Yes ??? Frequency: 7.0 times per week ??? Types: Marijuana Allergies Allergen Reactions ??? [place] Medications: MAR and/or home medications have been reviewed. Physical Exam: Preprocedure Vitals Current as of 07/15/22 1013 No BP, pulse, respiration, SpO2, or temperature recorded. Height: Weight: BMI: IBW: Airway Assessment: Mallampati: II Cardiovascular Assessment: system normal Pulmonary Assessment: pulmonary exam normal Dental Assessment: Misc Assessment: Last Filed Perioperative Cognitive Screening None Anesthesia Plan: ASA 3 general, 71 yo s/f DAVEY for watchman follow up. Hx afib, tachy-sakina (sp PPM), LVEF 45%, DM NPO Plan for MAC, propofol Informed Consent: Anesthesia Screening documented in this encounter Plan of Treatment Upcoming Encounters Date Type Department Care Team (Late st Contact Info) Description 04/15/2024 10:00 AM EDT Hospital Encounter Non-Invasive [place] [phone] Arrived documented as of this encounter Goals Goal Patient Goal Type Associated Problems Recent Progress Patient-Stated? Author [facility] Medication Compliance and Understanding Patient Facing Action Plan On track( 017 10:41 AM EDT) No Selena Cisneros, [facility] Note: Patient Goal: Clear hepatitis C Timeframe to meet goal: within 12 weeks of therapy documented as of this encounter Visit Diagnoses Not on filedocumented in this encounter Administered Medications Inactive Administered Medications - up to 3 most recent administrations Medication Order MAR Action Action Date Dose Rate Site lactated ringers infusion Intravenous, CONTINUOUS PRN, Starting on Thu07/15/22 at 1047, Until Thu07/15/22 at 1115, Anesthesia Intra-op New Bag 07/15/2022 10:47 AM EST propofoL (Diprivan) (10 mg/mL) infusion Intravenous, CONTINUOUS PRN, Starting on Thu07/15/22 at 1058, Until Thu07/15/22 at 1115, Anesthesia Intra-op, Routine Rate/Dose Change 07/15/2022 11:08 AM EST 150 mcg/kg/min 89.55 mL/hr New Bag 07/15/2022 10:58 AM EST 150 mcg/kg/min 89.55 mL /hr propofoL (Diprivan) 10 mg/mL bolus injection (Anesthesia) Intravenous, PRN, Starting on Thu07/15/22 at 1101, Until Thu07/15/22 at 1115, Anesthesia Intra-op Given 07/15/2022 11:01 AM EST 40 mg Given 07/15/2022 10:58 AM EST 60 mg documented in this encounter Care Teams Pharmacometrician Relationship Specialty Start Date End Date Urbano Jimenez DO [address] [place] [address] PCP - General Family Medicine 03/18/22 Ruchi Valles RN Nurse Clinic Transplant Surgery 07/30/15 documented as of this encounter
--- OUTSIDE RECORDS SUMMARY | 2024-02-14 11:16 | XMS_ITS | Encounter Summary ---
Author Organization [facility] [place] [address] Care Team Providers Care Fruit Peeler Name Role Phone Urbano Jimenez Ray KIRBY Primary Care Provider [phone] Reason for Visit * Reason Onset Date Comments Medication Refill 07/21/2022 Encounter Details Date Type Department Care Team (Late st Contact Info) Description 07/21/2022 Refill [place] [id number] Tal Eagle MD [facility] [place] [address] H/O kidney transplant; Aftercare following organ transplant; Other complication of kidney transplant; shelter current use of 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 drug Social History [...] AM EDT Hospital Encounter Non-[place] [phone] Arrived documented as of this encounter Goals Goal Patient Goal Type Associated Problems Recent Progress Patient-Stated? 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
--- OUTSIDE RECORDS SUMMARY | 2024-02-14 11:16 | XMS_ITS | Encounter Summary ---
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 PATIENT:??Cody Bolden? :??1950 [place]: 05/23/2022 ? 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 History of Present Illness: ?? Interim hx reveals Yash underwent a Watchman procedure on 05/08/2022 due to tachyarrhythmia associated cardiomyopathy. He is s/p pacemaker 01/2022 and s/p basal ganglia hemorrhagic stroke. His last echo had an LVEF 45% . He was found to have spike protein Ab against the spike protein 03/18/2022. Previously rec'd both COVID shots (09/12 and 10/03/20) and since the last time he was seen his 3rd: 05/11/2021 - Moderna; today he rec'd an updated pneumovax 23 injection. We have no record of him ever receiving a Prevnar. He had two admissions in the last year: CVA 09/2020 (Dr. Cortés) and diverticulitis 03/2021 (see [facility]). He has no residual defects. Has seen Dr. Brown via telehealth and his cardiomyopathy has improved and he seems stable now. ? His major complaint is post prandial RUQ discomfort. I reviewed his CT and MR scan of the past and he has known gall stones; he could very well have cholecystitis or GB issues. I asked that he observe for now but if the problem persists to let us know and we can refer to general surgery. ?? 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 Previous Tx Hx: 0% PRA. Patient given Basliximab for induction. EBV +/+, CMV +/+; Rx post tx with Harvoni for hep C and he has cleared theinfection. ?? Active Ambulatory Problems Diagnosis Date Noted ??? Hypertension 09/03/2012 ??? DJD (degenerative joint disease) 09/03/2012 ??? Hematuria 09/03/2012 ??? CGN (chronic glomerulonephritis) 10/16/2014 ??? Hepatitis C virus infection 01/04/2015 ??? Kidney transplant infection 11/12/2015 ??? Enterococcal bacteremia 02/05/2016 ??? Ureteral stricture 04/29/2016 ??? Dehydration 05/13/2016 ??? H/O kidney transplant 06/13/2016 ??? Aftercare following organ transplant 06/13/2016 ??? Type 2 diabetes mellitus with complication, without long-term current use of insulin 08/12/2016 ??? CAH (chronic active hepatitis) 08/25/2016 ??? Prophylactic immunotherapy 09/22/2016 ??? USP current use of 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 drug 09/22/2016 ??? Vitamin D deficiency 09/20/2017 ??? Debility 10/05/2017 ??? Pain of right lower extremity 10/05/2017 ??? Obesity (BMI 30.0-34.9) 11/10/2017 ??? Hydronephrosis 06/16/2018 ??? Atrial fibrillation with RVR - had flutter initially, then fib 01/31/2019 ??? Left leg pain 05/30/2019 ??? CAD (coronary artery disease) 11/24/2019 ??? Herniated lumbar intervertebral disc 05/10/2020 ??? Tobacco abuse counseling 10/08/2020 ?? Resolved Ambulatory Problems Diagnosis Date Noted ??? ESRD (end stage renal disease) 04/27/2015 ??? Chronic kidney disease, stage V 05/29/2015 ??? Renal failure 09/16/2015 ??? RAY (acute kidney injury) 11/27/2015 ??? Sepsis 06/22/2016 ??? Weight increase 08/12/2016 ??? Primary osteoarthritis of right knee 10/05/2017 ??? S/P R TKA 11/25/17 Dr. Dale 11/25/2017 ?? Past Medical History: Diagnosis Date ??? Back pain ? Chronic pain ? Colon polyp ? CVA (cerebral vascular accident) ? Diabetes ? Gastroesophageal reflux ? GERD (gastroesophageal reflux disease) ? High blood pressure ? HTN (hypertension) ? Irregular heart beat ? Kidney failure ? Liver disease ? Microhematuria ? Stroke ? Type 2 diabetes mellitus ? Past Surgical History Past Surgical History: Procedure Laterality Date ??? JOINT REPLACEMENT ? new right knee ??? [facility]/10[facility]2020 ?? FLUOROSCOPY (WRVU 0.17) performed by Joseph Ang MD at [facility] OR ??? PRO ANASTOMOSIS, AV, ANY SITE Left 05/09/2015 ?? AV FISTULA CREATION, DIRECT HEMODIALYSIS, ANY SITE, EG ASHWINI FISTULA UPPER EXTREMITY performed by Que Amaro MD at [facility] OR ??? PRO CYSTOURETHROSCOPY, URETER CATHETER Left 06/17/2018 ?? CYSTO, RETROGRADE, URETEROPYELOGRAPHY (WRVU 2.37) performed by Edinson Grider III, MD at [facility] OR ??? PRO LAMINEC/FACETECT/FORAMIN, LUMBAR 1 SEG N/A 05/10/2020 ?? LAMINECTOMY, FACETECTOMY & FORAMINOTOMY,LUMBAR, ONE LEVEL (WRVU 15.37) performed by Joseph Ang MD at [facility] OR ??? PRO LAMINOTOMY, LUMBAR DISK, 1 INTRSP N/A 05/10/2020 ?? LAMINOTOMY, DECOMPRESSION, FORAMINOTOMY, LUMBAR (WRVU 13.18) performed by Joseph Ang MD at [facility] OR ??? PRO MICROSURG TECHNIQUES, REQ OPER MICROSCOPE N/A 05/10/2020 ?? MICROSCOPE USE (WRVU 3.46) performed by Joseph Ang MD at [facility] OR ??? PRO REIMPLANT URETER, SINGLE URETER Left 05/20/2016 ?? @URETERONEOCYSTOSTOMY ANASTOMOSIS OF SINGLE URETER TO BLADDER performed by Santosh Arredondo MD [facility] OR ??? PRO REIMPLANT URETER, SINGLE URETER N/A 05/20/2016 ?? @URETERONEOCYSTOSTOMY ANASTOMOSIS OF SINGLE URETER TO BLADDER performed by Akhil Amaro MD at [facility] OR ??? PRO TOTAL KNEE ARTHROPLASTY Right 11/25/2017 ?? TOTAL KNEE ARTHROPLASTY (WRVU 20.72) performed by Breezy Dale MD at [facility] OR ??? PRO TRANSPLANT, PREP CADAVER RENAL GRAFT N/A 09/16/2015 ?? @PREPARATION CADAVERIC RENAL ALLOGRAFT performed by Franko Larkin MD at [facility] OR ??? PRO TRANSPLANTATION OF KIDNEY N/A 09/16/2015 ?? @KIDNEY TRANSPLANT, WITHOUT RECIPIENT NEPHRECTOMY [facility] ??? TISSUE TRANSFER ? kidney ??? US RENAL TRANSPLANT LEFT Left 01/31/2019 ?? US Renal Transplant Left 01/31/2019 [facility] ??? US RENAL TRANSPLANT LEFT Left 02/07/2019 ?? US Renal Transplant Left 02/07/2019 [facility] ? Current Outpatient Medications: ??? apixaban (Eliquis) 2.5 mg Tablet, Take 1 tablet by mouth 2 times daily., Disp: 60 tablet, Rfl: 2 ??? mycophenolate (Cellcept) 250 mg Capsule, Take 1 capsule by mouth 2 times daily., Disp: 14 capsule, Rfl: 0 ??? tacrolimus (Prograf) 1 mg Capsule, TAKE TWO CAPSULES BY MOUTH EVERY MORNING AND ONE CAPSULE NIGHTLY, Disp: 21 capsule, Rfl: 0 ??? hydrALAZINE (Apresoline) 100 mg Tablet, Take 1 tablet by mouth 2 times daily., Disp: 180 tablet, Rfl: 1 ??? metoprolol succinate XL (Toprol-XL) 50 mg Tablet Sustained Release 24 hr, Take 1 tablet by mouth 2 times daily., Disp: 180 tablet, Rfl: 3 ??? Magnesium Gluconate 27 mg magnesium (500 mg) Tablet, TAKE 2 TABLETS BY MOUTH EVERY MORNING , 1 TABLET AT NOON, AND 2 TABLETS EVERY EVENING, Disp: 450 tablet, Rfl: 1 ??? amLODIPine (Norvasc) 5 mg Tablet, Take [...] mcg by mouth daily., Disp: , Rfl: ? No Known Allergies? Immunization History Administered Date(s) Administered ??? Hepatitis B Vaccine, unspecified formulation 04/16/2015, 05/14/2015, 06/20/2015 ??? Influenza PF, Split 06/04/2012, 05/26/2013, 04/07/2015, 08/03/2017 ??? Influenza PF, Split (High Dose) 04/23/2016 ??? Influenza Vaccine PF, Quadrivalent (6-35 Mos) 04/04/2015 ??? Moderna Covid-19 (Stock Replenisher 100mcg) Vaccine 09/05/2020, 10/03/2020, 05/11/2021 ??? Pneumococcal Polyvalent 23 06/20/2014, 04/11/2015, 10/03/2021 ??? Td, adult 07/06/2000, 05/20/2011 ??? Zoster Vaccine, Live 08/30/2015 ? Healthcare maintenance for a transplant recipient: ?Immunizations (no live virus or modified bacterial vaccines) ?Prevnar 13 once in a lifetime ?Pneumovax 23 every 5 years ?Tdap every 10 years ?Annual flu shot ?NO SHINGLES VACCINES Annual PCP exam Annual CASEY and PSA [...] for diabetics, every 5 for non diabetics [place] kidney ultrasound looking for renal cell CA, [...] for last few days , no diarrhea and occasional post prandial RUQ abdominal pain. - No change in urine output. No pain urinating or blood in urine. Neuro -??Gen'l??weakness??and easy fatigue. No numbness/ tingling in extremities. ?? PHYSICAL EXAM: Vitals Flowsheet Row Office Visit from 05/23/2022 in Solid Organ Transplant at [facility] Weight 103.8 kg (228 lb 12.8 oz) Temp 36.5 ??C (97.7 ??F) Temp src Oral Heart Rate 70 BP 120/60 Patient Position Sitting SpO2 95 % ?? Appearance - Alert, Comfortable. Skin - No exanthem. HEENT - Sclera white. Mucous membranes moist. Chest: Lungs clear to ausculatation w/o wheezes/ rhonchi/ crackles. Heart - S1 and S2 clear w/o murmur, gallop, or rub. JVP not elevated. Abd - Soft. + BS. No bruit. Non tender. Ext - Warm. No cyanosis. No dependent edema. Neuro - No asterixis. ?? Latest Reference Range & Units 05/23/22 08:56 05/23/22 09:04 05/23/22 09:10 WBC 4.0 - 9.5 x10(3)/mcL 8.6 RBC 4.58 - 5.54 x10(6)/mcL 4.57 (L) Hemoglobin 13.7 - 16.5 g/dL 13.7 Hematocrit 40.5 - 48.5 % 41.7 MCV 82.9 - 93.1 fL 91.2 MCH 27.5 - 32.1 pg 30.0 MCHC 32.0 - 35.7 g/dL 32.9 RDWSD 36.0 - 45.0 fL 41.8 RDWCV 11.4 - 13.8 % 12.8 Platelets 145 - 357 x10(3)/mcL 305 MPV 7.6 - 12.[address] % 0.7 - 2.6 % 2.[address] Abs 0.030 - 0.120 x10(6)/mcL 0.090 Immature Retic% 0.0 - 15.6 % 12.0 Reticulated Hgb 31.3 - 40.2 pg 31.8 nRBC % Auto % 0.0 nRBC Abs Auto 0.000 - 0.000 x10(3)/mcL 0.000 Neutr Abs (ANC) 1.70 - 6.10 x10(3)/mcL 5.97 Neutrophils % % 69.4 Immature Gran % % 0.20 Lymphocytes % % 19.5 Monocytes % % 7.3 Eosinophils % % 2.9 Basophils % % 0.7 Ayesha Gran Abs 0.00 - 0.04 x10(3)/mcL 0.02 Lymphocytes Abs 0.9 - 3.2 x10(3)/mcL 1.7 Monocyte Abs 0.3 - 0.9 x10(3)/mcL 0.6 Eosinophils Abs 0.0 - 0.4 x10(3)/mcL 0.2 Basophils Abs 0.0 - 0.1 x10(3)/mcL 0.1 Sodium 135 - 145 mmol/L 141 Potassium [...] Glucose Lvl 65 - 199 mg/dL 140 Total Protein 6.1 - 8.0 g/dL 7.3 Albumin 3.2 - 5.2 g/dL 4.0 Total Bilirubin 0.2 - 1.3 mg/dL 2.0 (H) Alk Phos 40 - 130 unit/L 80 AST 0 - 39 unit/L 15 ALT 0 - 55 unit/L 16 U Protein Ran 0 - 12 mg/dL 38 (H) Chol, Total mg/dL 71 Lipid Interpretation See Note Tacrolimus Lvl ng/mL 8.6 Color UA Yellow Yellow Appearance UA Clear Clear Spec [place] UA 1.005 - 1.030 1.020 pH UA 5.0 - 8.0 6.5 Protein UA Negative mg/dL 100 ! Glucose UA Negative mg/dL Negative Ketones UA Negative mg/dL Negative Bilirubin UA Negative mg/dL Negative Urobilinogen UA Normal mg/dL Normal Blood UA Negative mg/dL Negative Leukocytes UA Negative mcL Negative Nitrite UA Negative Negative WBC UA 0 - 3 /HPF 1 RBC UA 0 - 3 /HPF 1 Squam Epith UA <=4 /HPF 1 Culture Reflexed No Prot/Cre Ratio ratio 0.3 U Creatinine mg/dL 125 BKV Blood Result Not Detected IU/mL Not Detected (L): Data is abnormally low (H): Data is abnormally high !: Data is abnormal? IMPRESSION/ RECOMMENDATIONS:??Mr. Bolden is a??71?yr old gentleman w/ hx of kidney transplant who presents to clinic for??his annual??f/u??after receiving ??A DDKTx 09/2015 ?? Transplant Status -s/p donor kidney transplant??6 1/2 yr post; with proteinuria > 1.0 gm/day -Creatinine stable??1.6 mg/dL -Drinks??2L??fluids/day ?? PTDM -Patient now has PTDM treatment and is under care with his??PCP??and on Glipizide?? Needs better dietary control??still ? Immunosuppression -Prograf, Cellcept ?? Proteinuria Likely [place] kidney involvement, no nephrosis ? PO4/Mg - Kphos.??2 tabs bid?? - Magnesium??gluconate [id number] TID ?? Erythrocytosis -??cont' to observe No need of RAAS inhibition , continue hydration Close follow up? Hypertension: BP is??stable;??not on antihypertensive Encourage to check BP at home?? -??on??Flomax ? Hepatitis C -on Harvoni?treatment -Viral load undetectable after treatment??in June 2018? CV disease, AF/Afib Followed by Dr. Kevin Ta discussion about multiple med problems and prognosis ?? Hyperbilirubinemia Known gall stones and hepatic steatosis with normal liver enzymes in past TB then 2.5 no assessment for pancreatitis But abdominal signs and symptoms transient Suggested evaluation by Dr. Corea for possible cholecystectomy or watchful waiting in anticipation of progression ? [id number] labs f/u 12 months ?? ? Discussion with the patient and/or family concerned the following: ?Diagnostic results or recommended studies ?Prognosis; ?Risks and benefits of management; ?Instructions for management; ?Compliance with treatment; ?Risk factor reduction; ?Patient and family education. ? Total time?25 of 30 min??in direct face to face student support counselor. documented in this encounter Plan of Treatment Upcoming Encounters Date Type Department Care Team (Late st Contact Info) Description 04/15/2024 10:00 AM EDT Hospital Encounter [place] [id number] Arrived documented as of this encounter Goals Goal Patient Goal Type Associated Problems Recent Progress Patient-Stated? Author DH Home Medication Compliance and Understanding Patient Facing Action Plan On track( 017 10:41 AM EDT) No Selena Cisneros [facility] Note: Patient Goal: Clear hepatitis C Timeframe to meet goal: within 12 weeks of therapy documented as of this encounter Results * BKV Quant Blood (05/23/2022 9:10 AM EST) BKV Blood Result Not Detected Not Detected IU/mL [facility] Comment: Indication for Study: Monitoring BKV DNA Analysis: The ester BKV test is an in vitro nucleic acid amplification tests using real-time polymerase chain reaction (PCR) assay for the quantitative measurement of BK virus (BKV) DNA in human EDTA plasma. Sample: EDTA plasma Method: ester BKV test used with the Carbonite0 platform ([employer]) Linear Range: 21.5 - 1.0 x 10^8 IU/mL (1.33 - 8.00 log IU/mL) Note: The Kirsten ester BKV assay has been cleared by the U.S. Food and Drug Administration for clinical testing. Blood 05/23/2022 9:10 AM EST 05/23/2022 10:53 AM EST Narrative Resulting Agency Comment Spec In Lab Tal Eagle MD MOLECULAR ORDERAB LES Performing Organization Address [facility]/ZIP Co de Phone Number [facility] [place] [address] * Tacrolimus level (05/23/2022 9:10 AM EST) Tacrolimus 8.6 ng/mL [facility] Comment: Trough therapeutic range is 3-15 ng/mL, depending upon transplant type, time since transplantation, use of other 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 drugs, comorbidities, and test method used. Tacrolimus concentration determined using the Kirsten [employer]ys Tacrolimus electrochemiluminescence competitive immunoassay. Results from different samples types and methods are not interchangeable. Blood 05/23/2022 9:10 AM EST 05/23/2022 9:17 AM EST Narrative Resulting Agency Comment Spec In Lab Tal Eagle MD CHEMISTRY ORDERAB LES Performing Organization Address City/[facility]/ZIP Co de Phone Number [facility] [place] [address] * Reticulocyte Count (05/23/2022 9:10 AM EST) Reticulocyte % 2.0 0.7 - 2.6 % [facility] Retic Abs # 0.090 0.030 - 0.120 x10(6)/mcL [facility] Immature Retic% 12.0 0.0 - 15.6 % [facility] Reticulated Hgb 31.8 31.3 - 40.[address] [facility] Blood 05/23/2022 9:10 AM EST 05/23/2022 9:17 AM EST Narrative Resulting Agency Comment Spec In Lab Tal Eagle MD HEMATOLOGY ORDERA BLES [facility] [place] [address] * (ABNORMAL) Comprehensive metabolic panel (non-fasting) (05/23/2022 9:04 AM EST) Pathologist [facility] Glucose 140 65 - 199 mg/dL [facility] Comment:Diabetes: >=200 mg/d L plus symptoms Blood Urea Nitrogen 21(H) 10 - 20 mg/dL [facility] Creatinine 1.60(H) 0.80 - 1.50 mg/dL [facility] Sodium 141 135 - 145 mmol/L [facility] Potassium 4.3 3.5 - 5.0 mmol/L [facility] Comment: Please note: ??Patients with WBC >100,000 may have falsely elevated Potassium levels. ??For accurate Potassium quantification in these patients send serum separator tube (gold top) for subsequent determinations. ??Contact the Clinical Chemistry Laboratory if there are any questions. Chloride 103 98 - 107 mmol/L [facility] Carbon Dioxide 29 22 - 31 mmol/L [facility] Anion Gap 9 5 - 15 mmol/L [facility] Calcium 10.1 8.5 - 10.5 mg/dL [facility] Protein, Total 7.3 6.1 - 8.0 g/dL [facility] Albumin 4.0 3.2 - 5.2 g/dL [facility] Aspartate Aminotransferase 15 0 - 39 unit/L [facility] Alanine Aminotransferase 16 0 - 55 unit/L [facility] Alkaline Phosphatase 80 40 - 130 unit/L [facility] Bilirubin, Total 2.0(H) 0.2 - 1.3 mg/dL [facility] Est Glomerular Filtration Rate 45(L) >=60 mL/min/1. 73 m?? [facility] Comment: This patient's estimated GFR [...] and symptoms in addition to eGFR. Blood 05/23/2022 9:04 AM EST 05/23/2022 9:21 AM EST Narrative Resulting Agency Comment Spec In Lab Tal Eagle MD CHEMISTRY ORDERAB LES Performing Organization Address City/[facility]/ZIP Co de Phone Number [facility] [place] [address] * (ABNORMAL) Magnesium (05/23/2022 9:04 AM EST) Magnesium 0.66(L) 0.69 - 1.07 mmol/L [facility] Blood 05/23/2022 9:04 AM EST 05/23/2022 9:21 AM EST Narrative Resulting Agency Comment Spec In Lab Tal Eagle MD CHEMISTRY ORDERAB LES [facility] [place] [address] * Phosphorus (05/23/2022 9:04 AM EST) Phosphorus 3.0 2.5 - 4.5 mg/dL [facility] Blood 05/23/2022 9:04 AM EST 05/23/2022 9:21 AM EST Narrative Resulting Agency Comment Spec In Lab Tal Eagle MD CHEMISTRY ORDERAB LES Performing Organization Address City/[facility]/ZIP Co de Phone Number [facility] [place] [address] * Uric acid (05/23/2022 9:04 AM EST) Uric Acid 7.5 3.5 - 8.5 mg/dL [facility] Blood 05/23/2022 9:04 AM EST 05/23/2022 9:21 AM EST Narrative Resulting Agency Comment Spec In Lab Tal Eagle MD CHEMISTRY ORDERAB LES Performing Organization Address City/[facility]/ZIP Co de Phone Number [facility] [place] [address] * Cholesterol, total (05/23/2022 9:04 AM EST) Cholesterol, Total 71 mg/dL [facility] Comment: Lower Risk: <200 mg/dL Average Risk: 200-239 mg/dL Higher Risk: >hc=349 mg/dL Lipid Interpretation See Note [facility] Comment: Lipid management should be guided by a patient? s ASCVD risk, goals and preferences. ACC/AHA Guidelines recommend high intensity statin if clinical ASCVD or LDL greater than or equal to 190 mg/dL. [email or web address] Adults aged 40-75 with LDL 70-189 mg/dL should have their 10 year ASCVD risk estimated with the ACC/AHA ASCVD risk vat skimmer http://tools.acc.org/GTZZA-Ffej-Scymeqrjb/ Statin should be discussed if risk greater [...] critical component of ASCVD risk reduction. Blood 05/23/2022 9:04 AM EST 05/23/2022 9:21 AM EST Narrative Resulting Agency Comment Spec In Lab Tal Eagle MD CHEMISTRY ORDERAB LES Performing Organization Address [facility] Co de Phone Number [facility] [place] [address] * (ABNORMAL) Protein/Creatinine Ratio, urine (05/23/2022 8:56 AM EST) Creatinine, Urine 125 mg/dL [facility] Protein, Urine 38(H) 0 - 12 mg/dL [facility] Protein / Creatinine Ratio, Urine 0.[address] [facility] Urine 05/23/2022 8:56 AM EST 05/23/2022 9:10 AM EST Narrative Resulting Agency Comment Spec In Lab Tal Eagle MD URINE ORDERABLES Performing Organization Address [facility] Co de Phone Number [facility] [place] [address] * (ABNORMAL) Urinalysis with reflex Culture (05/23/2022 8:56 AM EST) Glucose, Urine Dipstick Negative Negative mg/dL [facility] Protein, Urine Dipstick 100(A) Negative mg/dL [facility] Bilirubin, Urine Dipstick Negative Negative mg/dL [facility] Comment: Clinical correlation required for positive Urine Bilirubin results as false positive may occur with some drugs and drug related products. If a false positive is suspected a serum total bilirubin should be considered if clinically indicated. Urobilinogen, Urine Dipstick Normal Normal mg/dL [facility] pH, Urn (dipstick) 6.5 5.0 - 8.0 [facility] Blood, Urine Dipstick Negative Negative mg/dL [facility] Ketone, Urine Dipstick Negative Negative mg/dL [facility] Nitrite, Urine Dipstick Negative Negative [facility] Leukocytes, Urine Dipstick Negative Negative [facility] Appearance, Urine Dipstick Clear Clear [facility] Specific [place] Urine Automated 1.020 1.005 - 1.030 [facility] Color, Urine Dipstick Yellow Yellow [facility] Reflex to Culture No [facility] Clean Catch Urine 05/23/2022 8:56 AM EST 05/23/2022 9:08 AM EST Narrative Resulting Agency Comment Spec In Lab Tal Eagle MD URINE ORDERABLES Performing Organization Address City/State/[facility] Co de Phone Number [facility] [place] [address] documented in this encounter Visit Diagnoses Diagnosis H/O kidney transplant Kidney replaced by transplant Vitamin D deficiency Unspecified vitamin D deficiency USP current use of 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 drug Aftercare following organ transplant documented in this encounter Care Teams Bank Representative Relationship Specialty Start Date End Date Urbano Jimenez DO [address] [facility] [place] [address] PCP - General Family Medicine 03/18/22 Ruchi Valles RN Nurse Clinic Transplant Surgery 07/30/15 documented as of this encounter
--- OUTSIDE RECORDS SUMMARY | 2024-02-14 11:16 | XMS_ITS | Encounter Summary ---
Author Organization [facility] [place] [address] Care Team Providers Care Physician Practice Consultant Name Role Phone Urbano Jimenez Ray KIRBY Primary Care Provider [phone] Reason for Visit * Reason Onset Date Comments Bumped Appointment 08/18/2022 Encounter Details Date Type Department Care Team (Late st Contact Info) Description 08/18/2022 [place] [address] Breezy Dale MD [facility] [place] [address] Bumped Appointment Social History Tobacco Use Types Packs/Day Years [...] encounter Miscellaneous Notes * Telephone Encounter - Mara Shabazz - 08/18/2022 9:26 AM ESTSummary: RECALL LETTER We have been unable to contact patient to schedule reminder appointment for KNEE with [facility]. Recall bumped out to 2023 documented in this encounter Plan of Treatment Upcoming Encounters Date Type Department Care Team (Late st Contact Info) Description 04/15/2024 10:00 AM EDT Hospital Encounter [place] [address] Arrived documented as of this encounter Goals [...] on filedocumented in this encounter Care Teams Physician Practice Consultant Relationship Specialty Start Date End Date Urbano Jimenez DO [address] [place] [address] PCP - General Family Medicine 03/18/22 Ruchi Valles RN Nurse Clinic Transplant Surgery 07/30/15 documented as of this encounter
--- OUTSIDE RECORDS SUMMARY | 2024-02-14 11:16 | XMS_ITS | Encounter Summary ---
[facility] [place] [address] Care Team Providers Care Billiard Table Mechanic Name Role Phone Urbano Jimenez Ray KIRBY Primary Care Provider [phone] Encounter Details Date Type Department Care Team (Late st Contact Info) Description 06/02/2022 Unscheduled Encounter Cardiology at [address] [phone] Mara Holman APRN [facility] [place] [address] Pacemaker Social History Tobacco Use Types Packs/Day Years [...] as of this encounter Progress Notes * Mara Holman APRN - 06/02/2022 11:01 AM EST Duplicate- see office visit note documented in this encounter Plan of Treatment Upcoming Encounters Date Type Department Care Team (Late st Contact Info) Description 04/15/2024 10:00 AM EDT Hospital Encounter Non-[place]vasive [place] [address] Arrived documented as of this encounter Goals [...] as of this encounter Visit Diagnoses Diagnosis Pacemaker Cardiac pacemaker in situ documented in this encounter Care Teams Billiard Table Mechanic Relationship Specialty Start Date End Date Urbano Jimenez DO [address] [place] [place] [address] PCP - General Family Medicine 03/18/22 Ruchi Valles RN Nurse Clinic Transplant Surgery 07/30/15 documented as of this encounter
--- OUTSIDE RECORDS SUMMARY | 2024-02-14 11:16 | XMS_ITS | Encounter Summary ---
[place] [address] Care Team Providers Care Senior Digital Designer Name Role Phone Urbano Jimenez DO Primary Care Provider [phone] Encounter Details Date Type Department Care Team (Latest Contact Info) Description 06/02/2022 Travel Social History Tobacco Use Types Packs/Day [...] AM EDT Hospital Encounter Non[place] [address] Arrived documented as of this encounter Goals [...] on filedocumented in this encounter Care Teams Senior Digital Designer Relationship Specialty Start Date End Date Urbano Jimenez DO [address] [place] [address] PCP - General Family Medicine 03/18/22 Ruchi Valles RN Nurse Clinic Transplant Surgery 07/30/15 documented as of this encounter
--- OUTSIDE RECORDS SUMMARY | 2024-02-14 11:16 | XMS_ITS | Encounter Summary ---
Author Organization [facility] [place] [address] Care Team Providers Care Team Assembly Line Machine Operator Name Role Phone Urbano Jimenez DO Primary Care Provider [phone] Reason for Visit * Auth/Cert (Routine) Specialty Diagnoses / Procedures Referred By Contac t Referred To Contact Diagnoses Other persistent atrial fibrillation Persistent atrial fibrillation S/P BATOOL 45D F/U Procedures PRG DAVEY REAL TIME IMG 2D W PRB IMG ACQUIS I&R TRANSESOPHAGEAL ECHOCARDIOGRAM (WRVU 2.55) Liseth Calero MD [facility] [place] [address] [facility] Referral ID Status Reason Start Date Expiration Date Visits Re quested Visits Authorized [id number] 1 1 Encounter Details Date Type Department Care Team (Latest Contact Info) Description 07/15/2022 4:40 PM EST TH Visit (TeleHealth) Cardiology at [address] [phone] Tal Diana MD [facility] [place] [address] Atrial fibrillation, unspecified type (Primary Dx); Hypertension secondary to other renal disorders; Coronary artery disease involving chehalis heart, unspecified vessel or lesion type, unspecified whether angina present; Tachy-sakina syndrome; Pacemaker; Aortic stenosis, mild; Mitral valve insufficiency, unspecified etiology; Atrial fibrillation with RVR - had flutter initially, then fib Social History Tobacco Use Types Packs/Day Years [...] as of this encounter Progress Notes * Tal Diana MD - 07/15/2022 4:40 PM EST STRUCTURAL HEART DISEASE TELE VISIT NOTE Cody Bolden 07/15/22 The patient consented to this being a virtual visit. HPI: Cody Bolden is a 71 y.o. year old male of PMHx HTN, T2DM, ASCVD s/p PCI to OM, iCM with recovered EF, atrial fibrillation (not on AC due to intracranial bleed) s/p BATOOL-C (Watchman FLX 27 mm 05/08/22), tachy-sakina syndrome s/p PPM, ESRD s/p renal transplant, prior CVA, diverticulitis, who presents for post-Watchman follow-up. He has been doing well without acute complaints for me today. The premise of our visit is for review of his DAVEY surveillance imaging conducted earlier this morning. Patient Active Problem List Diagnosis Date Noted [...] deficiency 09/20/2017 ??? Prophylactic immunotherapy 09/22/2016 ??? 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 [...] (degenerative joint disease) 09/03/2012 ??? Hematuria 09/03/2012 Brief ROS: Activity level: Good. No new orthopnea, PND, LE edema. No lightheadedness, dizziness, syncope/pre- syncope. No new CP. Medications: Current Outpatient Medications Medication Sig Dispense Refill ??? apixaban (Eliquis) 2.5 mg Tablet Take 1 tablet by mouth 2 times daily. 60 tablet 2 ??? mycophenolate (Cellcept) 250 mg Capsule Take 1 capsule by mouth 2 times daily. 14 capsule 0 ??? tacrolimus (Prograf) 1 mg Capsule TAKE TWO CAPSULES BY MOUTH EVERY MORNING AND ONE CAPSULE NIGHTLY 21 capsule 0 ??? hydrALAZINE (Apresoline) 100 mg Tablet Take 1 tablet by mouth 2 times daily. 180 tablet 1 ??? metoprolol succinate XL (Toprol-XL) 50 mg Tablet Sustained Release 24 hr Take 1 tablet by mouth2 times daily. 180 tablet 3 ??? Magnesium Gluconate 27 mg magnesium (500 mg) Tablet TAKE 2 TABLETS BY MOUTH EVERY MORNING , 1 TABLET AT NOON, AND 2 TABLETS EVERY EVENING 450 tablet 1 ??? amLODIPine (Norvasc) 5 mg Tablet Take [...] mg by mouth 2 times daily. ??? tamsulosin (FLOMAX) 0.4 mg Capsule Take 0.4 mg by mouth daily. ??? acetaminophen (TYLENOL) 500 mg Tablet Take 1,000 mg by mouth every 8 hours as needed for Pain. ??? levothyroxine (SYNTHROID) 137 mcg Tablet Take 137 mcg by mouth daily. ??? nitroGLYcerin (NITROSTAT) 0.4 mg Tablet, Sublingual Place 1 tablet under the tongue every 5 minutes as needed for Chest pain. (Patient not taking: Reported on 07/15/2022) 90 tablet 12 Medications were reviewed with patient. Objective Data: Physical examination deferred in lieu of TH visit. Labs: Lab Results Component Value Date WBC 8.6 05/23/2022 HGB 13.7 05/23/2022 HCT 41.7 05/23/2022 MCV 91.2 05/23/2022 PLATELET 305 05/23/2022 No results for input(s): NA, K, CL, CO2, BUN, CREATININE, GLUCOSE in the last 168 hours. Lab Results Component Value Date INR 1.1 01/30/2022 Lab Results Component Value Date CHLPL 71 05/23/2022 HDL 36 03/18/2022 CHOLHDL 2.2 03/18/2022 TRIG 115 03/18/2022 LDLCHOL 22 03/18/2022 Brief Op Note 05/08/22 Mean LA pressure ~12 mmHg. No evidence of thrombus in the left atrial appendage. Successful left atrial appendage closure with a 27 mm Watchman FLX device. Device met PASS criteria and safely released. Assessment: S/P LAAC (Watchman FLX 27 mm 05/08/22) CV issues are currently stable. I independently reviewed his DAVEY imaging and discussed with the team conducting his study. No DRT or significant mary-device leak. He had been tolerating the low dose apixaban (2.5 mg bid dosing) without bleeding issues. At this point, will discontinue the DOAC and transition to SAPT alone. We elected for baby aspirin at this point of time in lieu of DAPT, given his history of intracranial hemorrhage. He will have a TH check-in at the 6 month princess post-implant. Time spent on clinical encounter, including review of imaging, discussion with imaging team, TOV visit, and documentation: 30 minutes. Tal Diana MD Pager [phone] documented in this encounter Plan of Treatment Upcoming Encounters Date Type Department Care Team (Late st Contact Info) Description 04/15/2024 10:00 AM EDT Hospital Encounter Non-[place] [address] Arrived documented as of this encounter Goals Goal Patient Goal Type Associated Problems Recent Progress Patient-Stated? Author DH Home Medication Compliance and Understanding Patient Facing Action Plan On track( 017 10:41 AM EDT) Selena Scott, [facility] Note: Patient Goal: Clear hepatitis C Timeframe to meet goal: within 12 weeks of therapy documented as of this encounter Visit Diagnoses Diagnosis Atrial fibrillation, unspecified type- Primary Hypertension secondary to other renal disorders Coronary artery disease involving chehalis heart, unspecified vessel or lesion type, unspecified whether angina present Tachy-sakina syndrome Sinoatrial node dysfunction Pacemaker Cardiac pacemaker in situ Aortic stenosis, mild Aortic valve disorders Mitral valve insufficiency, unspecified etiology Atrial fibrillation with RVR - had flutter initially, then fib Atrial fibrillation documented in this encounter Care Teams Team Assembly Line Machine Operator Relationship Specialty Start Date End Date Urbano Jimenez DO [address] [place] [address] PCP - General Family Medicine 03/18/22 Ruchi Valles RN Nurse Clinic Transplant Surgery 07/30/15 documented as of this encounter
--- OUTSIDE RECORDS SUMMARY | 2024-02-14 11:16 | XMS_ITS | Encounter Summary ---
Author Organization [facility] [place] [address] Care Team Providers Care Zipper Setter Lockstitch Name Role Phone Urbano Jimenez DO Primary Care Provider [phone] Encounter Details Date Type Department Care Team (Latest Contact Info) Description 08/06/2022 Orders Only [place] [phone] Urbano Houston LPN H/O kidney transplant; custodial current use of 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 drug; Vitamin D [...] AM EDT Hospital Encounter Non-Invasive [place] [phone] Arrived documented as of this encounter Goals Goal Patient Goal Type Associated Problems Recent Progress Patient-Stated? Author [facility] Medication Compliance and Understanding Patient Facing Action Plan On track( 017 10:41 AM EDT) No Selena Cisneros, [facility] Note: Patient Goal: Clear hepatitis C Timeframe to meet goal: within 12 weeks of therapy documented as of this encounter Visit Diagnoses Diagnosis H/O kidney transplant Kidney replaced by transplant custodial current use of 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 drug Vitamin D deficiency Unspecified vitamin D deficiency documented in this encounter Care Teams Zipper Setter Lockstitch Relationship Specialty Start Date End Date Urbano Jimenez DO [address] [place] [address] PCP - General Family Medicine 03/18/22 Ruchi Valles RN Nurse Clinic Transplant Surgery 07/30/15 documented as of this encounter
--- OUTSIDE RECORDS SUMMARY | 2024-02-14 11:16 | XMS_ITS | Encounter Summary ---
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 Social History [...] AM EDT Hospital Encounter [place] [phone] Arrived documented as of this [...] Procedure Name Priority Date/Time Associated Diagnosis Comments HC BK VIRUS QUANT PCR,PLASMA STAT 05/23/2022 9:10 AM EST H/O kidney transplant Vitamin D deficiency 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 HEMOGRAM STAT 05/23/2022 9:10 AM EST H/O kidney transplant Vitamin D deficiency intermediate current use of 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 drug DIFFERENTIAL, AUTOMATED STAT 05/23/2022 9:10 AM EST H/O kidney transplant Vitamin D deficiency intermediate current use of 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 drug HC FK-506 (TACROLIMUS) STAT 05/23/2022 9:10 AM EST H/O kidney transplant Vitamin D deficiency intermediate current use of 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 drug HC RETIC,AUTO INCLUDES RETHE & IRF STAT 05/23/2022 9:10 AM EST H/O kidney transplant Vitamin D deficiency intermediate current use of 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 drug HC CBC,PLT & AUTO DIFF STAT 05/23/2022 9:10 AM EST H/O kidney transplant Vitamin D deficiency 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 HC URIC ACID, SERUM STAT 05/23/2022 9 :04 AM EST H/O kidney transplant Vitamin D deficiency 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 HC PHOSPHORUS, SERUM STAT 05/23/2022 9:04 AM EST H/O kidney transplant Vitamin D deficiency 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 HC MAGNESIUM, SERUM STAT 05/23/2022 9 :04 AM EST H/O kidney transplant Vitamin D deficiency 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 HC CHOLESTEROL STAT 05/23/2022 9:04 AM EST H/O kidney transplant Vitamin D deficiency 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 HC VENIPUNCTURE STAT 05/23/2022 9:04 AM EST H/O kidney transplant Vitamin D deficiency 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 URINALYSIS MICROSCOPIC EXAM STAT 05/23/2022 8:56 AM EST HC PROTEIN, QUANTITATIVE, URINE STAT 05/23/2022 8:56 AM EST H/O kidney transplant Vitamin D deficiency intermediate current use of 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 drug URINALYSIS WITH REFLEX CULTURE STAT 05/23/2022 8:56 AM EST H/O kidney transplant Vitamin D deficiency intermediate current use of 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 drug documented in this encounter Results * Differential, Automated (05/23/2022 9:10 AM EST) Neutrophil % 69.4 % [facility] Neutrophil Absolute 5.97 1.70 - 6.10 x10(3)/[facility] Lymph % 19.5 % [facility] Lymphocytes Abs 1.7 0.9 - 3.2 x10(3)/[facility] Monocyte % 7.3 % [facility] Monocyte Abs 0.6 0.3 - 0.9 x10(3)/[facility] Eos % 2.9 % [facility] Eosinophils Abs 0.2 0.0 - 0.4 x10(3)/[facility] Basophil % 0.7 % [facility] Baso Absolute 0.1 0.0 - 0.1 x10(3)/[facility] Immature Gran % 0.20 % [facility] Comment: Immature granulocytes(IG's)percentage and absolute count will include metamyelocytes, myelocytes, and promyelocytes. Blood smears from CBCs yielding IG's will be scanned manually for concordance. If this scan disagrees with the automated IG or if promyelocytes are noted, a manual differential will be performed. Immature Gran Absolute 0.02 0.00 - 0.04 x10(3)/[facility] Blood 05/23/2022 9:10 AM EST 05/23/2022 9:17 AM EST Narrative Resulting Agency Comment Spec In Lab Tal [place] MD HEMATOLOGY ORDERA BLES [facility] [place] [address] * (ABNORMAL) Hemogram (05/23/2022 9:10 AM EST) White Blood Cell 8.6 4.0 - 9.5 x10(3)/mc L [facility] Red Blood Cell 4.57(L) 4.58 - 5.54 x10(6)/mc L [facility] Hemoglobin 13.7 13.7 - 16.5 g/dL [facility] Hematocrit 41.7 40.5 - 48.5 % [facility] Mean Cell Volume 91.2 82.9 - 93.1 fL [facility] Mean Cell Hemoglobin 30.0 27.5 - 32.1 pg [facility] Mean Cell Hemoglobin Concentration 32.9 32.0 - 35.7 g/dL [facility] Platelet 305 145 - 357 x10(3)/mc L [facility] RDW Standard Deviation 41.8 36.0 - 45.0 [facility] RDW coefficient of variation 12.8 11.4 - 13.8 % [facility] Mean Platelet Volume 9.0 7.6 - 12.9 [facility] NRBC% auto 0.0 % [facility] NRBC Absolute 0.000 0.000 - 0.000 x10(3)/mc L [facility] Blood 05/23/2022 9:10 AM EST 05/23/2022 9:17 AM EST Narrative Resulting Agency Comment Spec In Lab Tal [place] MD HEMATOLOGY ORDERA BLES Performing Organization Address City/[facility]/ZIP Co de Phone Number [facility] [place] [address] * Tacrolimus level (05/23/2022 9:10 AM EST) Pathologist [facility] Tacrolimus 8.6 ng/mL [facility] Comment: Trough therapeutic range is [...] MD CHEMISTRY ORDERAB LES Performing Organization Address [facility] Co de Phone Number [facility] [place] [address] * Reticulocyte Count (05/23/2022 9:10 AM EST) [facility] Reticulocyte % 2.0 0.7 - 2.6 % [facility] Retic Abs # 0.090 0.030 - 0.120 x10(6)/mcL [facility] Immature Retic% 12.0 0.0 - 15.6 % [facility] Reticulated Hgb 31.8 31.3 - 40.2 pg [facility] Blood 05/23/2022 9:10 AM EST 05/23/2022 9:17 AM EST Narrative Resulting Agency Comment Spec In Lab Tal [place] MD HEMATOLOGY ORDERA BLES Performing Organization Address [facility]/ZIP Co de Phone Number [facility] [place] [address] * BKV Quant Blood (05/23/2022 9:10 AM EST) [facility] BKV Blood Result Not Detected Not Detected IU/mL [facility] Comment: Indication for Study: Monitoring BKV DNA Analysis: The ester BKV test is an in vitro nucleic acid amplification tests using real-time polymerase chain reaction (PCR) assay for the quantitative measurement of BK virus (BKV) DNA in human EDTA plasma. Sample: EDTA plasma Method: ester BKV test used with the [id number] platform (Kirsten) Linear Range: 21.5 - 1.0 x 10^8 IU/mL (1.33 - 8.00 log IU/mL) Note: The Kirsten ester BKV assay has been cleared by the U.S. Food and Drug Administration for clinical testing. Blood 05/23/2022 9:10 AM EST 05/23/2022 10:53 AM EST Narrative Resulting Agency Comment Spec In Lab Tal [place] MD MOLECULAR ORDERAB LES [facility] [place] [address] * Cholesterol, total (05/23/2022 9:04 AM EST) Cholesterol, Total 71 mg/dL [facility] Comment: Lower Risk: <200 mg/dL Average Risk: 200-239 mg/dL Higher Risk: >vy=850 mg/dL Lipid Interpretation See Note [facility] Comment: Lipid management should be guided by a patient? s ASCVD risk, goals and preferences. ACC/AHA Guidelines recommend high intensity statin if clinical ASCVD or LDL greater than or equal to 190 mg/dL. http://BlueSnap.com/PMF-JJM-Mnottyzdv Adults aged 40-75 with LDL 70-189 mg/dL should have their 10 year ASCVD risk estimated with the ACC/AHA ASCVD risk class a regional drivers http://tools.acc.org/JMQCV-Yknx-Ygruffpqd/ Statin should be discussed if risk greater [...] MD CHEMISTRY ORDERAB LES Performing Organization Address [facility] Co de Phone Number [facility] [place] [address] * Uric acid (05/23/2022 9:04 AM EST) Uric Acid 7.5 3.5 - 8.5 mg/dL [facility] Blood 05/23/2022 9:04 AM EST 05/23/2022 9:21 AM EST Narrative Resulting Agency Comment Spec In Lab Tal [place] MD CHEMISTRY ORDERAB LES Performing Organization Address [facility] Co de Phone Number [facility] [place] [address] * Phosphorus (05/23/2022 9:04 AM EST) Phosphorus 3.0 2.5 - 4.5 mg/dL [facility] Blood 05/23/2022 9:04 AM EST 05/23/2022 9:21 AM EST Narrative Resulting Agency Comment Spec In Lab Tal [place] MD CHEMISTRY ORDERAB LES Performing Organization Address [facility] Co de Phone Number [facility] [place] [address] * (ABNORMAL) Magnesium (05/23/2022 9:04 AM EST) Magnesium 0.66(L) 0.69 - 1.07 mmol/L [facility] Blood 05/23/2022 9:04 AM EST 05/23/2022 9:21 AM EST Narrative Resulting Agency Comment Spec In Lab Tal [place] MD CHEMISTRY ORDERAB LES Performing Organization Address City/[facility] Co de Phone Number [facility] [place] [address] * (ABNORMAL) Comprehensive metabolic panel (non-fasting) (05/23/2022 9:04 AM EST) Glucose 140 65 - 199 mg/dL [facility] Comment:Diabetes: >=200 mg/d L plus symptoms Blood Urea Nitrogen 21(H) 10 - 20 mg/dL [facility] Creatinine 1.60(H) 0.80 - 1.50 mg/dL [facility] Sodium 141 135 - 145 mmol/L [facility] Potassium 4.3 3.5 - 5.0 mmol/L [facility] Comment: Please note: ??Patients with WBC >100,000 may have falsely elevated Potassium levels. ??For accurate Potassium quantification in these patients send serum separator tube (gold top) for subsequent determinations. ??Contact the Clinical Chemistry Laboratory if there are any questions. Chloride 103 98 - 107 mmol/L [facility] Carbon Dioxide 29 22 - 31 mmol/L [facility] Anion Gap 9 5 - 15 mmol/L [facility] Calcium 10.1 8.5 - 10.5 mg/dL [facility] Protein, Total 7.3 6.1 - 8.0 g/dL [facility] Albumin 4.0 3.2 - 5.2 g/dL [facility] Aspartate Aminotransferase 15 0 - 39 unit/L [facility] Alanine Aminotransferase 16 0 - 55 unit/L [facility] Alkaline Phosphatase 80 40 - 130 unit/L [facility] Bilirubin, Total 2.0(H) 0.2 - 1.3 mg/dL [facility] Est Glomerular Filtration Rate 45(L) >=60 mL/min/1. 73 m?? [facility] Comment: This patient's estimated GFR [...] MD CHEMISTRY ORDERAB LES Performing Organization Address [facility] Co de Phone Number [facility] [place] [address] * Urinalysis Microscopic Exam (05/23/2022 8:56 AM EST) RBC, Urine 1 0 - 3 /HPF [facility] WBC, Urine 1 0 - 3 /HPF [facility] Squamous Epithelial Cells Raw Data, Urine 1 <=4 /HPF [facility] Clean Catch Urine 05/23/2022 8:56 AM EST 05/23/2022 9:08 AM EST Narrative Resulting Agency Comment Spec In Lab Tal [place] MD URINE ORDERABLES Performing Organization Address [facility] de Phone Number [facility] [place] [address] * (ABNORMAL) Urinalysis with reflex Culture (05/23/2022 8:56 AM EST) Glucose, Urine Dipstick Negative Negative mg/dL [facility] Protein, Urine Dipstick 100(A) Negative mg/dL [facility] Bilirubin, Urine Dipstick Negative Negative mg/dL [facility] Comment: Clinical correlation required for positive Urine Bilirubin results as false positive may occur with some drugs and drug related products. If a false positive is suspected a serum total bilirubin should be considered if clinically indicated. Urobilinogen, Urine Dipstick Normal Normal mg/dL [facility] pH, Urn (dipstick) 6.5 5.0 - 8.0 [facility] Blood, Urine Dipstick Negative Negative mg/dL [facility] Ketone, Urine Dipstick Negative Negative mg/dL [facility] Nitrite, Urine Dipstick Negative Negative [facility] Leukocytes, Urine Dipstick Negative Negative [facility] Appearance, Urine Dipstick Clear Clear [facility] Specific [place] Urine Automated 1.020 1.005 - 1.030 [facility] Color, Urine Dipstick Yellow Yellow [facility] Reflex to Culture No [facility] Clean Catch Urine 05/23/2022 8:56 AM EST 05/23/2022 9:08 AM EST Narrative Resulting Agency Comment Spec In Lab Tal [place] MD URINE ORDERABLES Performing Organization Address City/[facility]/ZIP Co de Phone Number [facility] [place] [address] * (ABNORMAL) Protein/Creatinine Ratio, urine (05/23/2022 8:56 AM EST) Creatinine, Urine 125 mg/dL [facility] Protein, Urine 38(H) 0 - 12 mg/dL [facility] Protein / Creatinine Ratio, Urine 0.3 ratio [facility] Urine 05/23/2022 8:56 AM EST 05/23/2022 9:10 AM EST Narrative Resulting Agency Comment Spec In Lab Tal [place] MD URINE ORDERABLES Performing Organization Address City/[facility]/ZIP Co de Phone Number [facility] [place] [address] documented in this encounter Visit Diagnoses Diagnosis H/O kidney transplant Kidney replaced by transplant Vitamin D deficiency Unspecified vitamin D deficiency 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
--- OUTSIDE RECORDS SUMMARY | 2024-02-14 11:16 | XMS_ITS | Encounter Summary ---
Author Organization [facility] [place] [address] Care Team Providers Care Wheelchair Van Operator First Responder Name Role Phone PerrydebUrbano DO Primary Care Provider [phone] Encounter Details Date Type Department Care Team (Late st Contact Info) Description 09/17/2022 External Results [place] [phone] Social History Tobacco Use Types Packs/Day Years [...] AM EDT Hospital Encounter Non-Invasive [place] [phone] Arrived documented as of this encounter Goals Goal Patient Goal Type Associated Problems Recent Progress Patient-Stated? Author [facility] Medication Compliance and Understanding Patient Facing Action Plan On track( 017 10:41 AM EDT) Selena Scott, [facility] Note: Patient Goal: Clear hepatitis C Timeframe to meet goal: within 12 weeks of therapy documented as of this encounter Procedures Procedure Name Priority Date/Time Associated Diagnosis Comments LAB SCAN Routine 09/12/2022 documented in this encounter Results * Scan Doc: Lab (09/12/2022) Historical Provider MEDIA MGR SCAN EX T ORDR/RSLT documented in this encounter Visit Diagnoses Not on filedocumented in this encounter Care Teams Wheelchair Van Operator First Responder Relationship Specialty Start Date End Date Urbano Jimenez DO [address] [place] [address] PCP - General Family Medicine 03/18/22 Ruchi Valles RN Nurse Clinic Transplant Surgery 07/30/15 documented as of this encounter
--- OUTSIDE RECORDS SUMMARY | 2024-02-14 11:16 | XMS_ITS | Encounter Summary ---
[place] [address] Care Team Providers Care Product Development Director Name Role Phone Urbano Jimenez DO Primary Care Provider [phone] Reason for Referral * Diagnostic Test (Routine) - Closed Specialty Diagnoses / Procedures Referred By Humberto flor Referred To Contact Cardiology Diagnoses Persistent atrial fibrillation Procedures Transesophageal Echocardiogram (DAVEY) Tal Diana MD [facility] [address] [place] [address] [facility] [place] [address] Referral ID Status Reason Start Date Expiration Date V isits Requested Visits Authorized [id number] Closed Specialty Service Requested 07/06/2022 10/03/2022 1 1 Reason for Visit * Auth/Cert (Routine) Specialty Diagnoses / Procedures Referred By Humberto t Referred To Contact Diagnoses Other persistent atrial fibrillation Persistent atrial fibrillation S/P BATOOL 45D F/U Procedures PRG DAVEY REAL TIME IMG 2D W PRB IMG ACQUIS I&R TRANSESOPHAGEAL ECHOCARDIOGRAM (WRVU 2.55) Liseth Calero MD [facility] [place] [address] [place] [address] [facility] Referral ID Status Reason Start Date Expiration Date Visits Re quested Visits Authorized [id number] 1 1 Encounter Details Date Type Department Care Team (Late st Contact Info) Description 07/15/2022 9:37 AM EST - 07/15/2022 1:44 PM EST Hospital Encounter Same Day Program at [facility] [place] [address] Liseth Calero MD [facility] [place] [address] [place] [address] Persistent atrial fibrillation Discharge Disposition: Home Social History Tobacco Use [...] Sign Reading Time Taken Comments Blood Pressure 113/70 07/15/2022 1:00 PM EST Pulse 65 07/15/2022 12:00 PM EST Temperature 36.4 ??C (97.5 ??F) 07/15/2022 11:[address] Respiratory Rate 16 07/15/2022 1:00 PM EST Oxygen Saturation 94% 07/15/2022 1:00 PM EST Inhaled Oxygen Concentration - - Weight 99.5 kg (219 lb 4.8 oz) 07/15/2022 10:30 AM EST Height 180.3 cm (5' 11) 07/15/2022 10:30 AM EST Body Mass Index 30.59 07/15/2022 10:30 AM EST documented in this encounter Discharge Instructions * Discharge Instructions* Tal Acevedo RN - 07/15/2022 11:34 AM EST SAME DAY PROGRAM POST-OPERATIVE INSTRUCTIONS POST TRANSESOPHAGEL ECHOCARDIOGRAPHY A sore throat is normal after the procedure. It usually lasts several hours. Cold liquids and soothing lozenges will help ease the discomfort. You may resume your normal diet in two hours. No driving for twenty-four hours. No heavy lifting, no climbing or activities that require balance for twenty-four hours. Please call you doctor if you develop: Difficulty swallowing or breathing Severe chest or abdominal pain Vomiting of blood If you are having problems or have additional concerns or questions please call: Cardiology Clinic 8am - 5pm Same Day Program 6am- 6:30pm Emergency Room after 6:30pm documented in this encounter Medications at Time of Discharge Medication Sig Dispensed Refills Start Date End Date amLODIPine (Norvasc) 5 mg Tablet Take 1 [...] Tablet Take 137 mcg by mouth daily. mycophenolate (Cellcept) 250 mg CapsuleIndications:Other complication of kidney transplant,Prophylactic immunotherapy Take 1 capsule by mouth 2 times daily. 14 capsule 04/28/2022 07/28/2022 tacrolimus (Prograf) 1 mg CapsuleIndications:Other complication of kidney transplant,Prophylactic immunotherapy TAKE TWO CAPSULES BY MOUTH EVERY MORNING AND ONE CAPSULE NIGHTLY 21 capsule 04/28/2022 07/28/2022 hydrALAZINE (Apresoline) 100 mg Tablet Take 1 tablet by mouth 2 times daily. 180 tablet 1 04/15/2022 10/13/2022 metoprolol succinate XL (Toprol-XL) 50 mg Tablet Sustained Release 24 hrIndications:Atrial fibrillation with RVR Take 1 tablet by mouth 2 times daily. 180 tablet 3 02/25/2022 03/27/2023 Magnesium Gluconate 27 mg magnesium (500 mg) Tablet TAKE 2 TABLETS BY MOUTH EVERY MORNING , 1 TABLET AT NOON, AND 2 TABLETS EVERY EVENING 450 tablet 1 02/13/2022 07/21/2022 atorvastatin (Lipitor) 40 mg TabletIndications:Sanderson ry artery disease Take 1 tablet by mouth every evening. 90 tablet 3 01/14/2022 02/11/2023 calciTRIoL (Rocaltrol) 0.5 mcg Capsule TAKE ONE CAPSULE BY MOUTH EVERY DAY 90 capsule 3 10/28/2021 11/13/2022 documented as of this encounter H&P Notes * Cathie Palmer MD - 07/15/2022 9:00 AM EST Images from the original note were not included. Pre-DAVEY H+P Ethel Akins is a 71 y.o. gentleman with a PMH HTN, T2DM, ASCVD s/p PCI to OM, iCM with recovered EF, atrial fibrillation (s/p Watchman due to intracranial bleed), tachy-sakina syndrome s/p PPM, ESRD s/p renal transplant, prior CVA, diverticulitis who presents for post-Watchman DAVEY. Patient denies any loose teeth, difficulty swallowing, known esophageal pathology, recent GI bleed,or gastric surgery. Medications No current facility-administered medications on file prior to encounter. Current Outpatient Medications on File Prior to Encounter Medication Sig Dispense Refill ??? apixaban (Eliquis) [...] needed for Chest pain. 90 tablet 12 The patient took their medications as prescribed this morning Past Medical History: Diagnosis Date ??? RAY [...] 2 diabetes mellitus ??? Weight increase 08/12/2016 Allergies Allergen Reactions ??? [place] Physical Exam Last value Range last 24 hrs Temperature Temp: -- Heart Rate Heart Rate: -- Blood Pressure BP: -- Respiratory Rate Resp: -- SpO2 SpO2: -- Recent echocardiogram: TTE 05/08/22 Interpretation Summary Limited post Watchman protocol. There was a small pericardial effusion pre-procedure which is unchanged immediately post procedure (earlier today by DAVEY) and by TTE now. There is no echocardiographic evidence of tamponade. See report for additional findings. DAVEY 05/08/22 Interpretation Summary DAVEY performed to guide BAOTOL closure in catheterization laboratory. Baseline: No BATOOL thrombus. Max os diameter of ~22 mm. Small pericardial effusion. Post: 27 mm Watchman FLX device well-seated within BATOOL. No mary-device leak. No change in pericardial effusion. [id number] flow across atrial septostomy. See report for additional findings. ?? Mallampati: II Assessment and Plan: - proceed with DAVEY The indications, expected benefits and potential risks of DAVEY were reviewed in detail with the patient. The potential for infection, damage to the esophagus or vocal cords, intubation and were discussed. After a discussion about the above, and having answered all questions posed, the patient was provided with a consent which was reviewed and signed. Code status discussed, patient is FULL CODE Cathie Palmer MD Opening Machine Cleaner documented in this encounter Plan of Treatment Upcoming Encounters Date Type Department Care Team (Late st Contact Info) Description 04/15/2024 10:00 AM EDT Hospital Encounter Non[place] [phone] Arrived documented as of this encounter Goals Goal Patient Goal Type Associated Problems Recent Progress Patient-Stated? Author DH Home Medication Compliance and Understanding Patient Facing Action Plan On track( 017 10:41 AM EDT) No Selena Cisneros, [facility] Note: Patient Goal: Clear hepatitis C Timeframe to meet goal: within 12 weeks of therapy documented as of this encounter Procedures Procedure Name Priority Date/Time Associated Diagnosis Comments DAVEY W LMTD SPECTRAL DOPPLER COLOR DOPPLER Routine 07/15/2022 12:43 PM EST Persistent atrial fibrillation DAVEY complete wo contrast (47827) 07/15/2022 10:47 AM EST Persistent atrial fibrillation documented in this encounter Results * DAVEY W LMTD SPECTRAL DOPPLER COLOR DOPPLER (07/15/2022 12:43 PM EST) Anatomical Region Laterality Modality Cardiac Other 07/15/2022 10:3 4 AM EST Narrative 07/15/2022 5:24 PM EST ? Transesophageal Echocardiogram Report Name: ETHEL AKINS ?Study Date: 07/15/2022 10:34 AMBP: 146/86 mmHg ? Patient Location: OR^ORMN^A HR: 60 : 1950 ? Height: 180 cm ? Account: [id number] Age: 71 yrs ? Weight: 100 kg Gender: Male ?BSA: 2.2 m2 Ordering Physician: GENA CHERRY Referring Physician: UNKNOWN Performed By: Cathie Palmer MD Reason For Study: Atrial fibrillation History: Post-Watchman Interpreting Fellow: Cathie Palmer. Exam Location: [facility]. Interpretation Summary Post-Watchman DAVEY follow up. There is a 27 mm Watchman FLX well seated in the BATOOL position without evidence of thrombus or mary-device leak. Spontaneous echo contrast is present in the LA c/w stasis. A pinhole-sized, secundum atrial septal defect (post-transseptal punction) is noted. Procedure Complete Transesophageal echocardiogram, real-time with image documentation (2D) including probe placement, image acquisition, interpretation, and report; Color flow velocity mapping; PW and/or CW doppler display. A complete DAVEY study was performed under deep sedation with anesthesia provided by the anesthesiology service. After suitable sedation, the probe was passed without difficulty. Standard views were obtained in the transgastric, mid esophageal, and basal planes using a multiplane transesophageal echo probe. Additional evaluation with color flow Doppler and limited spectral Doppler was performed. Continuous HR, BP, ECG, and O2 sat monitoring was performed during the procedure. 3D image acquisition, rendering with interpretation and reporting, not requiring post-processing on an independent workstation. There were no complications during the procedure. The study images were of technically good quality. Left Ventricle Left ventricular systolic function is mildly reduced. Right Ventricle The right ventricle is probably normal in size. There is a CIED lead in the right ventricle. Right ventricular function is probably normal. Left Atrium Spontaneous contrast is present in the left atrium. There appears to be complete device closure of the left atrial appendage. The closure device was implanted on 11/3/22. There is no mary-device leak. There is no thrombus visualized on the device. There is a residual, pinhole sized, atrial septostomy present. Right Atrium A pacemaker lead is present in the right atrium. Aortic Valve The aortic valve is structurally normal. The right coronary cusp is immobile. No restricted motion of the left and non-coronary cusps. There is trace aortic regurgitation. Mitral Valve Mild thickening of the mitral leaflets. There is mild mitral regurgitation. Tricuspid Valve The tricuspid valve is structurally and functionally normal. There is trace tricuspid regurgitation. Pulmonic Valve The pulmonic valve appears to be structurally and functionally normal. Great Arteries Ascending Plaque grade 2: (extensive intimal thickening). Aortic Arch Plaque grade 2: (extensive intimal thickening). Descending Thoracic Aorta Plaque grade 2: (extensive intimal thickening). Venous Inferior vena cava is not well visualized. Pericardium/Pleural There is a trivial pericardial effusion. Procedure Note Ruchi Park MD - 07/15/2022 Transesophageal Echocardiogram Report Name: ETHEL AKINS Study Date: 0:34 AMBP: 146/86 mmHg Patient Location:OR^ORMN^A HR: 60 : 1950 Height: 180 cm Account: [id number] Age: 71 yrs Weight: 100 kg Gender: Male BSA: 2.2 m2 Ordering Physician: GENA CHERRY Referring Physician: UNKNOWN Performed By: Cathie Palmer MD Reason For Study: Atrial fibrillation History: Post-Watchman Interpreting Fellow: Cathie Palmer. Exam Location: [facility]. Interpretation Summary Post-Watchman DAVEY follow up. There is a 27 mm Watchman FLX well seated in the BATOOL position withoutevidence of thrombus or mary-device leak. Spontaneous echo contrast is present in the LA c/w stasis. A pinhole-sized, secundum atrial septal defect (post-transseptal punction)is noted. Procedure Complete Transesophageal echocardiogram, real-time with imagedocumentation (2D) including probe placement, image acquisition, interpretation, and report;Color flow velocity mapping; PW and/or CW doppler display. A complete DAVEY studywas performed under deep sedation with anesthesia provided by theanesthesiology service. After suitable sedation, the probe was passed withoutdifficulty. Standard views were obtained in the transgastric, mid esophageal, andbasal planes using a multiplane transesophageal echo probe. Additional evaluation withcolor flow Doppler and limited spectral Doppler was performed. Continuous HR,BP, ECG, and O2 sat monitoring was performed during the procedure. 3D imageacquisition, rendering with interpretation and reporting, not requiring post-processingon an independent workstation. There were no complications during the procedure.The study images were of technically good quality. Left Ventricle Left ventricular systolic function is mildly reduced. Right Ventricle The right ventricle is probably normal in size. There is a CIED lead inthe right ventricle. Right ventricular function is probably normal. Left Atrium Spontaneous contrast is present in the left atrium. There appears to becomplete device closure of the left atrial appendage. The closure device wasimplanted on 05/08/22. There is no mary-device leak. There is no thrombus visualized onthe device. There is a residual, pinhole sized, atrial septostomy present. Right Atrium A pacemaker lead is present in the right atrium. Aortic Valve The aortic valve is structurally normal. The right coronary cusp isimmobile. No restricted motion of the left and non-coronary cusps. There is traceaortic regurgitation. Mitral Valve Mild thickening of the mitral leaflets. There is mild mitralregurgitation. Tricuspid Valve The tricuspid valve is structurally and functionally normal. There istrace tricuspid regurgitation. Pulmonic Valve The pulmonic valve appears to be structurally and functionally normal. Great Arteries Ascending Plaque grade 2: (extensive intimal thickening). Aortic ArchPlaque grade 2: (extensive intimal thickening). Descending Thoracic Aorta Plaque grade2: (extensive intimal thickening). Venous Inferior vena cava is not well visualized. Pericardium/Pleural There is a trivial pericardial effusion. Gena Cherry MD ECHO ORDERABLES documented in this encounter Visit Diagnoses Diagnosis Persistent atrial fibrillation Atrial fibrillation documented in this encounter Active and Recently Administered Medications Times are shown in EST. PRN Medication Order 07/13/2022 07/14/2022 07/15/2022 lidocaine (Xylocaine) 5 % ointment (CANCELED) ONCE PRN, Starting on Thu07/15/22 at 1051, Until Thu07/15/22 at 1545, Intra-Operative (Intra-Procedure) 1051 (Given - Provid er: Cathie Palmer MD - Comment: To Back of throat) documented in this encounter Care Teams Product Development Director Relationship Specialty Start Date End Date Urbano Jimenez DO [address] [place] [address] PCP - General Family Medicine 03/18/22 Ruchi Valles RN Nurse Clinic Transplant Surgery 07/30/15 documented as of this encounter
--- OUTSIDE RECORDS SUMMARY | 2024-02-14 11:16 | XMS_ITS | Encounter Summary ---
Author Organization [facility] [place] [address] Care Team Providers Care Parking Supervisor Name Role Phone Urbano Jimenez Ray KIRBY Primary Care Provider [phone] Reason for Visit * Reason Comments Medication Refill Encounter Details Date Type Department Care Team (Late st Contact Info) Description 09/04/2022 Refill [place] [phone] Gurdeep Boston AGRICULTURE MECHANIC [facility] [place] [address] H/O kidney transplant; Aftercare following organ transplant; Other complication of kidney transplant; long-term current use of 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 drug Social History [...] AM EDT Hospital Encounter Non-Invasive [place] [phone] Arrived documented as of this encounter Goals [...] organ transplant Other complication of kidney transplant long-term current use of 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 drug documented in this encounter Care Teams Parking Supervisor Relationship Specialty Start Date End Date Urbano Jimenez DO [address] [place] [address] PCP - General Family Medicine 03/18/22 Ruchi Valles RN Nurse Clinic Transplant Surgery 07/30/15 documented as of this encounter
--- OUTSIDE RECORDS SUMMARY | 2024-02-14 11:16 | XMS_ITS | Encounter Summary ---
Author Organization [facility] [place] [address] Care Team Providers Care Hostel Manager Name Role Phone Urbano Jimenez DO Primary Care Provider [phone] Encounter Details Date Type Department Care Team (Late st Contact Info) Description 06/02/2022 11:00 AM EST Office Visit Cardiology at [address] [address] Mara Holman, PICTURE COPYIST [facility] [address] Pacemaker; Atrial fibrillation with RVR; Persistent atrial fibrillation Social History Tobacco Use Types Packs/Day Years [...] of this encounter Progress Notes * Mara Holman, IVETH - 06/02/2022 11:00 AM EST Images from the original note were not included. Cardiac Device Interrogation Summary See PDF in Media section for details Cody Patricia Yuan [id number] 06/02/2022 History: 71 yo male with history of atrial fibrillation s/p Watchman LAAC, on Eliquis 2.5mg twice daily, and 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 Brown requested pacemaker interrogation today to determine atrial arrhythmia burden. He is feeling fatigue, and unsure if it is related to an increase in metoprolol. Device Interrogation: Data Generator: Medtronic [place] XT LOULOU [id number] MRI SureScan - right-sided implant 01/31/2022 RA Lead: Medtronic 5076-45 CapsureFix Novus MRI [id number] Implanted: 31-Jan-2022 RV Lead: Medtronic 5076-52 CapsureFix Novus MRI [id number] Implanted: 31-Jan-2022 Device is MRI-conditional. Alerts ?? AT/AF >= 6 hr for 26 days. Episode in progress 16 days, 12 hours and 37 minutes. Diagnostics Pacing Mode: AAIR<=>DDDR 60-130 Presenting EGMs: ,Ar/VS and occasional GLASS CLEANER Underlying Rhythm: atrial fibrillation 43 bpm. Atrial Episodes: 1 AT/AF, 100% burden, episode in progress. Ventricular Episodes: 2 Fast A&V Atrial Pacing: <0.1% Ventricular Pacin.5% (MVP on) HR Histogram: right-shifted atrial graph (atrial rates >220 bpm), bimodal ventricular graphs with rates predominately 60s-70s bpm and some 120s bpm Battery and Leads Voltage: 3.18 V Status: ~13.8 years Magnet Rate: 85 bpm Charge Time: ---sec Impedances (ohms) Sensing (mV) Thresholds HV RA RV LV RA RV LV RA RV LV --- 380 456 --- 0.3 10.9 --- Afib 0.75 V @ 0.4ms --- Comments: - Pocket incision is well healed without signs or symptoms of infection - Device is functioning appropriately - Persistent atrial fibrillation since February 2022, rates relatively well controlled, although higher heart rate trend seems to be slightly increased since May (see graph above V rate during AT/AF). - Programming changes ?? Iterative changes made for testing purposes only - Follow up: device clinic yearly, remotely every 3 months. - Dr. Lou Palmer present for device interrogation, and she also discussed the plan with Dr. Brown. Relayed this information to the patient to stay on current dose of metoprolol and to continue Eliquis with no missed doses leading up to possible cardioversion. Mara Holman APRN 06/02/2022 Pager: [phone] documented in this encounter Plan of Treatment Upcoming Encounters Date Type Department Care Team (Late st Contact Info) Description 04/15/2024 10:00 AM EDT Hospital Encounter Non-Invasive [place] [address] Arrived documented as of this encounter Goals Goal Patient Goal Type Associated Problems Recent Progress Patient-Stated? Author DH Home Medication Compliance and Understanding Patient Facing Action Plan On track( 017 10:41 AM EDT) No Selena Cisneros, [facility] Note: Patient Goal: Clear hepatitis C Timeframe to meet goal: within 12 weeks of therapy documented as of this encounter Visit Diagnoses Diagnosis Pacemaker Cardiac pacemaker in situ Atrial fibrillation with RVR Atrial fibrillation Persistent atrial fibrillation Atrial fibrillation documented in this encounter Care Teams Hostel Manager Relationship Specialty Start Date End Date Urbano Jimenez DO [address] [place] [address] PCP - General Family Medicine 03/18/22 Ruchi Valles RN Nurse Clinic Transplant Surgery 07/30/15 documented as of this encounter
--- OUTSIDE RECORDS SUMMARY | 2024-02-14 11:16 | XMS_ITS | Encounter Summary ---
Author Organization [facility] [place] [address] Care Team Providers Care Supervisor Pairing And Inspecting Name Role Phone Urbano Jimenez DO Primary Care Provider [phone] Reason for Visit * Auth/Cert (Routine) Specialty Diagnoses / Procedures Referred By Contac t Referred To Contact Diagnoses Other persistent atrial fibrillation Persistent atrial fibrillation S/P BATOOL 45D F/U Procedures PRG DAVEY REAL TIME IMG 2D W PRB IMG ACQUIS I&R TRANSESOPHAGEAL ECHOCARDIOGRAM (WRVU 2.55) Liseth Calero MD [facility] [place] [address] [facility] Referral ID Status Reason Start Date Expiration Date Visits Re quested Visits Authorized [id number] 1 1 Encounter Details Date Type Department Care Team (Late st Contact Info) Description 07/15/2022 10:30 AM EST - 07/15/2022 11:30 AM EST Surgery [place] [address] Ruchi Park MD [facility] [place] [address] TRANSESOPHAGEAL ECHOCARDIOGRAM (WRVU 2.3) Social History Tobacco Use Types Packs/Day Years [...] Sign Reading Time Taken Comments Blood Pressure 98/58 07/15/2022 11:30 AM EST Pulse 69 07/15/2022 11:30 AM EST Temperature 36.4 ??C (97.5 ??F) 07/15/2022 11:[address] Respiratory Rate 22 07/15/2022 11:30 AM EST Oxygen Saturation 98% 07/15/2022 11:30 AM EST Inhaled Oxygen Concentration - - [...] note were not included. Pre-DAVEY H+P Ethel Bolden is a 71 y.o. gentleman with a [...] Weight increase 08/12/2016 Allergies Allergen Reactions ??? Combs Physical Exam Last value Range last 24 [...] 05/08/22 Interpretation Summary DAVEY performed to guide BATOOL closure in catheterization laboratory. Baseline: No BATOOL thrombus. Max os diameter of ~22 mm. Small pericardial effusion. Post: 27 mm Watchman FLX device well-seated within BATOOL. No mary-device leak. No change in pericardial effusion. [id number] flow across atrial septostomy. See report for [...] patient is FULL CODE Cathie Palmer MD Supervisor [employer] documented in this encounter Plan of Treatment Upcoming Encounters Date Type Department Care Team (Late st Contact Info) Description 04/15/2024 10:00 AM EDT Hospital Encounter Non-Invasive [place] [address] Arrived documented as of this encounter Goals Goal Patient Goal Type Associated Problems Recent Progress Patient-Stated? Author DH Home Medication Compliance and Understanding Patient Facing Action Plan On track( 017 10:41 AM EDT) Selena Scott, [facility] Note: Patient Goal: Clear hepatitis C Timeframe to meet goal: within 12 weeks of therapy documented as of this encounter Procedures Procedure Name Priority Date/Time Associated Diagnosis Comments DAVEY W LMTD SPECTRAL DOPPLER COLOR DOPPLER Routine 07/15/2022 12:43 PM EST Persistent atrial fibrillation DAVEY complete wo contrast (53700) 07/15/2022 10:47 AM EST Persistent atrial fibrillation documented in this encounter Results * DAVEY W LMTD SPECTRAL DOPPLER COLOR DOPPLER (07/15/2022 12:43 PM EST) Anatomical Region Laterality Modality Cardiac Other 07/15/2022 10:3 4 AM EST Narrative 07/15/2022 5:24 PM EST ? Transesophageal Echocardiogram Report Name: ETHEL BOLDEN ?Study Date: 07/15/2022 10:34 AMBP: 146/86 mmHg ? Patient Location: OR^ORMN^A HR: 60 : 1950 ? Height: 180 cm ? Account: [id number] Age: 71 yrs ? Weight: 100 kg Gender: Male ?BSA: 2.2 m2 Ordering Physician: GENA CHERRY Referring Physician: UNKNOWN Performed By: Cathie Palmer MD Reason For Study: Atrial fibrillation History: Post-Watchman Interpreting Fellow: Cathie Palmer. Exam Location: [facility]. Interpretation Summary Post-Watchman DAVEY [...] appendage. The closure device was implanted on 05/08/22. There is no mary-device leak. [...] MD - 07/15/2022 Transesophageal Echocardiogram Report Name: SHAKIRAANARAMÓN ETHEL P Study Date: 0:34 AMBP: 146/86 mmHg Patient Location:OR^ORMN^A HR: 60 : 1950 Height: 180 cm Account: [id number] Age: 71 yrs Weight: 100 kg Gender: Male BSA: 2.2 m2 Ordering Physician: GENA CHERRY Referring Physician: UNKNOWN Performed By: Cathie Palmer MD Reason For Study: Atrial fibrillation History: Post-Watchman Interpreting Fellow: Cathie Palmer. Exam Location: [facility]. Interpretation Summary Post-Watchman DAVEY [...] Diagnoses Diagnosis Persistent atrial fibrillation Atrial fibrillation Persistent atrial fibrillation Atrial fibrillation documented in this encounter Administered Medications Inactive Administered Medications - up to 3 most recent administrations Medication Order MAR Action Action Date Dose Rate Site lidocaine (Xylocaine) 5 % ointment ONCE PRN, Starting on Thu07/15/22 at 1051, Until Thu07/15/22 at 1545, Intra-Operative (Intra-Procedure) Given 07/15/2022 10:51 AM EST 1 inch documented in this encounter Active and Recently Administered Medications Times are shown in EST. PRN Medication Order 07/13/2022 07/14/2022 07/15/2022 lidocaine (Xylocaine) 5 % ointment (CANCELED) ONCE PRN, Starting on Thu07/15/22 at 1051, Until Thu07/15/22 at 1545, Intra-Operative (Intra-Procedure) 1051 (Given - Provid er: Cathie Palmer MD - Comment: To Back of throat) documented in this encounter Care Teams Supervisor Pairing And Inspecting Relationship Specialty Start Date End Date Urbano Jimenez DO [address] [place] [address] PCP - General Family Medicine 03/18/22 Ruchi Valles RN Nurse Clinic Transplant Surgery 07/30/15 documented as of this encounter
--- OUTSIDE RECORDS SUMMARY | 2024-02-14 11:16 | XMS_ITS | Encounter Summary ---
Author Organization [facility] Address [facility] [place] [address] Care Team Providers Care Nurse Assistant Name Role Phone Urbano Jimenez Ray KIRBY Primary Care Provider [phone] Encounter Details Date Type Department Care Team (Late st Contact Info) Description 06/17/2022 Orders Only Cardiology at [address] [phone] Nikolas Loving MD [facility] [place] [address] Social History Tobacco Use Types Packs/Day Years [...] AM EDT Hospital Encounter Non-[place] [address] Arrived documented as of this encounter Goals Goal Patient Goal Type Associated Problems Recent Progress Patient-Stated? Author [facility] Medication Compliance and Understanding Patient Facing Action Plan On track( 017 10:41 AM EDT) No Selena Cisneros, [facility] Note: Patient Goal: Clear hepatitis C Timeframe to meet goal: within 12 weeks of therapy documented as of this encounter Procedures Procedure Name Priority Date/Time Associated Diagnosis Comments CARDIAC DEVICE CHECK - REMOTE Routine 06/17/2022 2:48 AM EST documented in this encounter Results * Cardiac Device Check - Remote (06/17/2022 2:48 AM EST) Anatomical Region Laterality Modality Other 06/17/2022 2:48 AM EST Nikolas Loving MD IMPLANTABLE CARDIAC DEVICE documented in this encounter Visit Diagnoses Not on filedocumented in this encounter Care Teams Nurse Assistant Relationship Specialty Start Date End Date Urbano Jimenez DO [address] [place] [address] PCP - General Family Medicine 03/18/22 Ruchi Valles RN Nurse Clinic Transplant Surgery 07/30/15 documented as of this encounter
--- OUTSIDE RECORDS SUMMARY | 2024-02-14 11:16 | XMS_ITS | Encounter Summary ---
Author Organization [facility] [place] [address] Care Team Providers Care Branch Rental Manager Name Role Phone Urbano Jimenez Ray KIRBY Primary Care Provider [phone] Reason for Visit * Reason Comments Medication Refill Encounter Details Date Type Department Care Team (Late st Contact Info) Description 07/21/2022 Refill [place] [address] Gurdeep Boston RESIDENTIAL CARE FACILITY MANAGER [facility] [place] [address] Social History Tobacco Use Types Packs/Day Years [...] AM EDT Hospital Encounter Non-Invasive [place] [phone] Arrived documented as of this encounter Goals Goal Patient Goal Type Associated Problems Recent Progress Patient-Stated? Author [facility] Medication Compliance and Understanding Patient Facing Action Plan On track( 017 10:41 AM EDT) No Selena Cisneros, [facility] Note: Patient Goal: Clear hepatitis C Timeframe to meet goal: within 12 weeks of therapy documented as of this encounter Visit Diagnoses Not on filedocumented in this encounter Care Teams Branch Rental Manager Relationship Specialty Start Date End Date Urbano Jimenez DO [address] [place] [address] PCP - General Family Medicine 03/18/22 Ruchi Valles RN Nurse Clinic Transplant Surgery 07/30/15 documented as of this encounter
--- OUTSIDE RECORDS SUMMARY | 2024-02-14 11:16 | XMS_ITS | Encounter Summary ---
Author Organization [facility] [place] [address] Care Team Providers Care Reed Dipper Name Role Phone Urbano Jimenez Ray KIRBY Primary Care Provider [phone] Reason for Visit * Reason Comments Medication Refill Encounter Details Date Type Department Care Team (Late st Contact Info) Description 09/01/2022 Refill Cardiology at [address] [phone] Byron Brown MD [facility] [place] [address] Medication Refill Social History Tobacco Use Types [...] AM EDT Hospital Encounter Non-[place] [phone] Arrived documented as of this encounter Goals Goal Patient Goal Type Associated Problems Recent Progress Patient-Stated? Author [facility] Medication Compliance and Understanding Patient Facing Action Plan On track( 017 10:41 AM EDT) No Selena Cisneros, [facility] Note: Patient Goal: Clear hepatitis C Timeframe to meet goal: within 12 weeks of therapy documented as of this encounter Visit Diagnoses Diagnosis Atrial fibrillation with RVR - had flutter initially, then fib Atrial fibrillation documented in this encounter Care Teams Reed Dipper Relationship Specialty Start Date End Date Urbano Jimenez DO [address] [place] [address] PCP - General Family Medicine 03/18/22 Ruchi Valles RN Nurse Clinic Transplant Surgery 07/30/15 documented as of this encounter
--- OUTSIDE RECORDS SUMMARY | 2024-02-14 11:16 | XMS_ITS | Encounter Summary ---
Author Organization [facility] Address [facility] [address] [place] [address] Care Team Providers Care Angle Shear Set Up Operator Name Role Phone Urbano Jimenez DO Primary Care Provider [phone] Encounter Details Date Type Department Care Team (Late st Contact Info) Description 06/02/2022 10:30 AM EST Office Visit Cardiology at [address] [phone] Byron Brown MD [facility] [place] [address] Atrial fibrillation, unspecified type; Fatigue, unspecified type Social History Tobacco Use Types [...] Sign Reading Time Taken Comments Blood Pressure 141/78 06/02/2022 10:30 AM EST Pulse 79 06/02/2022 10:30 AM EST Temperature - - Respiratory Rate - - Oxygen Saturation 100% 06/02/2022 10: 30 AM EST Inhaled Oxygen Concentration - - Weight 101.6 kg (223 lb 14.4 oz) 2021 10:30 AM EST Height 180.3 cm (5' 11) 06/02/2022 10: 30 AM EST Body Mass Index 31.23 06/02/2022 10:30 AM EST documented in this encounter Progress Notes * Byron Brown MD - 06/02/2022 10:30 AM EST Images from the original note were not included. [facility] [place] [address] CARDIOLOGY/ VASCULAR OUTPATIENT NOTE Cody Bolden Urbano Jimenez, OFFICE VISIT : From my prior note (02/2022): Mr. Bolden is a 71 y/o M w/ PMH HTN, T2DM, ASCVD s/p PCI to OM, iCM with recovered EF, atrial fibrillation (not on AC due to intracranial bleed), tachy- sakina syndrome s/p PPM, ESRD s/p renal transplant, prior CVA, diverticulitis who has been having general malaise/fatigue. He was recently evaluated at his local ER x 2 with no clear etiology - although it is possible that the increase in metoprolol to 50 mg po bid may have helped. ?? #atrial flutter -recent device interrogation and ECG today with atrial flutter; however rates are well controlled with ventricular pacing at 65 -he is not on anticoagulation due to his history of spontaneous basal ganglia bleed with eliquis. We have referred him for a Watchman device ?? 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 His LVEF on 01/31/2022 was 45%, but the echo 12/2020 was normal. -he is on Bblocker -no ANNAMARIE/ARB at the moment, history of kidney transplant. 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 ?? Follow-up plan: he has visits with structural (Watchman) and EP next month. I will plan to see him back in 3 months or prn ?? SUBJECTIVE: -completed Watchman (05/08/2022), remains on Eliquis at this time - but should be off soon. Yash returns to the clinic with his . States that he does get tired and he is a little concernedabout this. Thinks he is a little more tired since the pacemaker 4 months ago. He states that he can walk up a flight of stairs without shortness of breath most of the times. No chest pain. He reports that his metoprolol was increased from 25 mg po bid to 50 mg po bid at the time of pacer implant. Asking about cardiac rehab, pacemaker adjustments ? Pacer was interrogated today: - Pocket incision is well healed without signs or symptoms of infection - Device is functioning appropriately - Persistent atrial fibrillation since February 2022, rates relatively well controlled, although higher heart rate trend seems to be slightly increased since May (see graph above V rate during AT/AF). - Programming changes ? Iterative changes made for testing purposes only - Follow up: device clinic yearly, remotely every 3 months. - Dr. Lou Palmer present for device interrogation, and she also discussed the plan with Dr. Brown. Relayed this information to the patient to stay on current dose of metoprolol and to continue Eliquis with no missed doses leading up to possible cardioversion. Meds: Current Outpatient Medications Medication Sig Dispense [...] the past 24 hrs: Pulse BP SpO2 06/02/22 1030 79 141/78 100 % General: Body mass index is 31.23 kg/m??. HEENT: PERRLA Neck: supple, JVP normal Lungs: clear to ascultation Cardiac: RRR, no m/r/g Abdomen: nontender, nondistended Extremities: normal ROM, trace edema. Neuro: alert and oriented x 3, normal muscle strength Most recent labs or other cardiac testing: Latest Reference Range & Units 05/23/22 09:10 WBC 4.0 - 9.5 x10(3)/mcL 8.6 RBC 4.58 - 5.54 x10(6)/mcL 4.57 (L) Hemoglobin 13.7 - 16.5 g/dL 13.7 Hematocrit 40.5 - 48.5 % 41.7 MCV 82.9 - 93.1 fL 91.2 MCH 27.5 - 32.1 pg 30.0 MCHC 32.0 - 35.7 g/dL 32.9 RDWSD 36.0 - 45.0 fL 41.8 RDWCV 11.4 - 13.8 % 12.8 Platelets 145 - 357 x10(3)/mcL 305 Latest Reference Range & Units 05/23/22 09:04 [...] Uric Acid 3.5 - 8.5 mg/dL 7.5 Echo 02/2022: Left ventricle is mildly dilated. Wall thickness is moderately increased. Left ventricular systolic function is mildly reduced. The left ventricular ejection fraction is 45% by Elizabeth's biplane. There is global hypokinesis with regional variation. The right ventricle is of normal size. Right ventricular systolic function is mildly decreased. Estimated PASP is 33 mHg. There is mild aortic stenosis. There is moderate mitral regurgitation. ?? ASSESSMENT / PLAN: Mr. Bolden is a 71 y/o M w/ PMH HTN, T2DM, ASCVD s/p PCI to OM, iCM with recovered EF, atrial fibrillation (s/p Watchman due to intracranial bleed), tachy-sakina syndrome s/p PPM, ESRD s/p renal transplant, prior CVA, diverticulitis who has been having general malaise/fatigue. This has been an issue previously - but he feels that this is worse since the time of the pacer implant (01/2022). #increased fatigue since pacer implant -Ddx includes: [...] contributing to thefatigue and mildly reduced LVEF. #V-pacing with underlying AF -see notes above. ?? 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 His LVEF on 01/31/2022 was 45%, but the echo 12/2020 was normal. -he is on Bblocker -no ANNAMARIE/ARB at the moment, history of kidney transplant. 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 Follow-up plan: 1 month after DCCV with an ECG Byron Brown MD, [facility] Cardiovascular Medicine [facility] [address] Clinic [phone] Clinic Team Nurse: [phone] The total time associated with this visit was 30 minutes. documented in this encounter Plan of Treatment Upcoming Encounters Date Type Department Care Team (Late st Contact Info) Description 04/15/2024 10:00 AM EDT Hospital Encounter Non-[place] [address] Arrived documented as of this encounter Goals Goal Patient Goal Type Associated Problems Recent Progress Patient-Stated? Author DH Home Medication Compliance and Understanding Patient Facing Action Plan On track( 017 10:41 AM EDT) No Selena Cisneros, [facility] Note: Patient Goal: Clear hepatitis C Timeframe to meet goal: within 12 weeks of therapy documented as of this encounter Visit Diagnoses Diagnosis Atrial fibrillation, unspecified type Fatigue, unspecified type documented in this encounter Care Teams Angle Shear Set Up Operator Relationship Specialty Start Date End Date Urbano Jimenez DO [address] [place] [address] PCP - General Family Medicine 03/18/22 Ruchi Valles RN Nurse Clinic Transplant Surgery 07/30/15 documented as of this encounter
--- OUTSIDE RECORDS SUMMARY | 2024-02-14 11:16 | XMS_ITS | Encounter Summary ---
Author Organization [place] [address] Care Team Providers Care Auto Body Straightener Name Role Phone Urbano Jimenez DO Primary Care Provider Encounter Details Date Type Department Care Team (Late st Contact Info) Description 06/06/2022 Telephone Cardiology at [address] [phone] Marisela Bob, RN Social History Tobacco Use Types Packs/Day [...] Miscellaneous Notes * Telephone Encounter - Marisela Bob, RN - 06/13/2022 9:18 AM EST TC to Mr Bolden to assess possible Atrial Fibrillation. Pleasant connection during which Mr Bolden states he is doing good. He states he is not sure if he is in Atrial Fibrillation or not. He denies palpitations, dizziness, Shortness of breath, or Chest Pain. His main complaint is that he is tired all of the time. Mr Bolden has history of pacemaker, and states he does have a monitor but he is not sure how to use this monitor. Given the telephone number of the device clinic, so he may call and talk with the device team about how to send a transmission, for his heart rhythm. 07/15/2022 DAVEY scheduled to check for leaking at site of his Watchman device confirmed. Talked with Mr Bolden about how to reach the device clinic, and gave him the number to reach Dr Brown. Marisela Bob RN (Jodie), BSN Cardiology Ambulatory Clinic * Telephone Encounter - Marisela Bob RN - 06/06/2022 3:02 PM EST RTC to Mrs Bolden regarding her questions about Afib and the possible treatment plan for Mr Bolden. Mr Bolden has a procedure in the label stamper to check his watchman device for any leaking so he can stop taking his Eliquis, as he developed a brain bleed previously. Mrs Bolden is also asking if there is any plan for a possible Cardioversion, at some point. Forwarding to Mr Bolden's provider. Marisela Bob RN (Jodie), M[facility]ERICK Cardiology Ambulatory Clinic * Telephone Encounter - Marisela Bob RN - 06/06/2022 10:33 AM EST TC to Mrs Bolden regarding her message to discuss her 's treatment plan, regarding his Afib. Left VM message outlining, the central question about Afib, being the rate and any symptoms casedby Afib. Noted Appointment for cardioversion, and follow up with Dr Brown. Left callback requesting a good time to contact Mrs Bolden. Marisela Bob RN (Jodie), BSN Cardiology Ambulatory Clinic documented in this encounter Plan of Treatment Upcoming Encounters Date Type Department Care Team (Late st Contact Info) Description 04/15/2024 10:00 AM EDT Hospital Encounter Non-Invasive [place] [address] Arrived documented as of this encounter Goals Goal Patient Goal Type Associated Problems Recent Progress Patient-Stated? Author DH Home Medication Compliance and Understanding Patient Facing Action Plan On track( 017 10:41 AM EDT) Selena Scott, [facility] Note: Patient Goal: Clear hepatitis C Timeframe to meet goal: within 12 weeks of therapy documented as of this encounter Visit Diagnoses Not on filedocumented in this encounter Care Teams Auto Body Straightener Relationship Specialty Start Date End Date Urbano Jimenez DO [address] [place] [address] PCP - General Family Medicine 03/18/22 Ruchi Valles RN Nurse Clinic Transplant Surgery 07/30/15 documented as of this encounter
--- OUTSIDE RECORDS SUMMARY | 2024-02-14 11:16 | XMS_ITS | Encounter Summary ---
Author Organization [facility] [place] [place] [address] Care Team Providers Care Sap Business Objects Consultant Name Role Phone Urbano Jimenez Ray KIRBY Primary Care Provider [phone] Reason for Visit * Reason Comments Medication Refill Encounter Details Date Type Department Care Team (Late st Contact Info) Description 09/11/2022 Refill [place] [phone] Gurdeep Boston CHRONOMETER ASSEMBLER AND ADJUSTER [facility] [place] [address] H/O kidney transplant; Aftercare following organ transplant; Other complication of kidney transplant; [facility] current use of 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 drug Social History [...] AM EDT Hospital Encounter Non-[place] [phone] Arrived documented as of this encounter Goals [...] organ transplant Other complication of kidney transplant [facility] current use of 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 drug documented in this encounter Care Teams Sap Business Objects Consultant Relationship Specialty Start Date End Date Urbano Jimenez DO [address] [facility] [place] [address] PCP - General Family Medicine 03/18/22 Ruchi Valles RN Nurse Clinic Transplant Surgery 07/30/15 documented as of this encounter
--- OUTSIDE RECORDS SUMMARY | 2024-02-14 11:16 | XMS_ITS | Encounter Summary ---
[place] [address] Care Team Providers Care Film Editor Name Role Phone Urbano Jimenez DO Primary Care Provider [phone] Reason for Referral * Consultation (Routine) - Closed Specialty Diagnoses / Procedures Referred By Humberto flor Referred To Contact General Surgery Diagnoses Diverticulitis Nelson Jason MD [facility] [place] [address] [facility] Gen Surgery [address] [place] [id number] Referral ID Status Reason Start Date Expiration Date V isits Requested Visits Authorized [id number] Closed Consult, Test & Treat 09/19/2022 09/19/2023 1 1 Reason for Visit * Auth/Cert (Routine) Specialty Diagnoses / Procedures Referred By Humberto flor Referred To Contact Diagnoses Diverticulitis Micro perf with diverticulitis Procedures emerg Asa Santizo MD [address] [place] [address] [place], [place] [id number] [place] [address] Referral ID Status Reason Start Date Expiration Date Visits Re quested Visits Authorized [id number] 1 1 Encounter Details Date Type Department Care Team (Latest Contact Info) Description 09/14/2022 7:23 PM EDT - 09/19/2022 3:46 PM EDT Hospital Encounter Adolescent Unit Level 2 [place] [id number] Asa Skaggs MD [address] [place], [place] [address] [address] Dyan Sears MD [facility] [place] [address] [facility] current use of 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 drug ; Diverticulitis Discharge Disposition: Home Social History Tobacco Use [...] Sign Reading Time Taken Comments Blood Pressure 134/66 09/19/2022 10:37 AM EDT Pulse 62 09/19/2022 8:00 AM EDT Temperature 36.6 ??C (97.9 ??F) 09/19/2022 10:37 AM E DT Respiratory Rate 18 09/19/2022 10:37 AM EDT Oxygen Saturation 97% 09/19/2022 10:37 AM EDT Inhaled Oxygen Concentration - - Weight 96 kg (211 lb 10.3 oz) 09/19/2022 7:49 AM EDT Height 180.3 cm (5' 10.98) 09/14/2022 7:31 PM E DT Body Mass Index 29.53 09/14/2022 7:31 PM EDT documented in this encounter Discharge Summaries * Nelson Jason MD - 09/19/2022 2:25 PM EDT Acute Care Surgery Discharge Summary Patient Name: Cody Bolden Patient Age: 72 y.o. : 1950 Attending Physician: Dyan Sears MD Date of Admission: 09/14/2022 Date of Discharge: ID: 72 y.o. 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 Other In-hospital Issues: - Acute Pain - S/p Kidney transplant Secondary Diagnosis: Past Medical History: Diagnosis Date ??? RAY [...] 2 diabetes mellitus ??? Weight increase 08/12/2016 Allergies: Allergies Allergen Reactions ??? [place] Operations/Procedures: None HPI: As written by Miguel Rogers MD, 09/14/2022 Cody Bolden is a 72 y.o. 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 He presents to [facility] on 09/14/2022 as a transfer from OSH for diverticulitis with microperforation, he was transferred for higher level of care in setting of his kidney transplant history. ?? Yash reports that he started to have some mild abdominal discomfort on 09/11. His then encouragedhim to present to OSH on 09/12 due to the history of his kidney transplant in the setting of his newabdominal pain. He reports the pain was located in his lower abdomen, L > R. He describes the pain as a constant aching pain. He did not have any nausea, vomiting, fever, chills, chest pain, dyspnea. He does report an episode of diarrhea on 09/12, otherwise no changes in bowel habits. He reports 1 prior episode of uncomplicated diverticulitis about 3 years ago which was treated with antibioticsand resolved. ?? CT scan at outside hospital was significant for acute mild diverticulitis of the proximal sigmoid colon with microperforation, no abscess. WBC at OSH was 9. He was treated with bowel rest, IV fluids,and IV antibiotics. He was evaluated by the surgical team at the outside hospital, however given his kidney transplant they did not feel comfortable managing his catheter in case he needed an operation, and was subsequently transferred to [facility]. ?? He reports that his pain has improved since antibiotics were started. He has not had any nausea, vomiting. He has been tolerating full liquid diet prior to transfer. Reports his last bowel movement was 09/12. Hospital Course: Mr. Bolden was admitted and managed non-operatively for acute sigmoid diverticulitis. Transplant nephrology was consulted while inpatient given patient's history of right DDKT, tacrolimus level measured and dose adjusted accordingly. His serial abdominal exams began to improve however there was co ncern for a change in exam with peritonitis on 09/17 for which a repeat CT scan was performed without significant change in findings. His exam improved the following morning and diet was resumed with excellent tolerance. He was initially started on IV zosyn on admission and was transitioned to a 4 day course of Augmentin oral antibiotics beginning on 09/19/22. Given patient's immunosuppression, trended CRP while inpatient. Cody Bolden's pain was adequately controlled, he was maintaining adequate oxygen saturation on room air, and was hemodynamically stable. He was tolerating a diet without abdominal complaints and voiding adequately. WBC and Hgb were stable. He was ambulating independently in the halls. Cody Bolden was evaluated by the Surgery Team and deemed medically stable for discharge on 09/19/22. Plan: Active issues to be addressed at discharge: #Acute Sigmoid Diverticulitis - Complete a 4 day course of Augmentin oral antibiotics beginning on 09/19/22 - Follow up in General Surgery clinic in roughly 2-4 weeks - Referral to Colorectal surgery #S/p Kidney transplant - Tacrolimus level in 1 week - Follow up with Transplant surgery will be arranged Incidental Radiographic Findings: None Pending Lab Data at Discharge: None Pertinent Lab Data: Recent Labs 09/19/225009/18/225 09/17/2250 WBC 8.7 9.1 8.4 HGB 13.1* 13.4* 12.8* HCT 38.2* 38.0* 37.1* PLATELET 247 261 229 Recent Labs 09/19/225009/18/225 09/17/2250 NA 140 142 140 K 3.2* 3.3* 3.7 CL 104 104 107 CO2 26 25 21* BUN 13 12 11 CREATININE 1.25 1.13 1.52* GLUCOSE 143 119 173 CALCIUM 9.0 8.9 9.0 MAGNESIUM 0.62* 0.47* 0.58* PHOS 2.6 2.1* 2.4* Microbiology Data: Microbiology Results (last 7 days) No results found for the last 168 hours. Microbiology Results (last 6 months) No results found for the last 4380 hours. Pertinent Imaging: Results for orders placed or performed during the hospital encounter of 09/14/22 CT Abdomen & Pelvis w Contrast (Exam End: 09/17/2022 5:34 PM) Impression 1. Acute diverticulitis. 2. Cholelithiasis. 3. Trace pleural collections. Thank you for letting us participate in the care of this patient. If you are a health care provider and have any questions regarding this report, please contact the number below. For patients who have questions please contact the health palliative care specialist that requested your imaging first. Discharge Physical Examination: Vital Signs: Last value Range last 24hrs Temperature Temp: 36.6 ??C (97.9 ??F) Temp: [36.4 ??C (97.5 ??F)-36.9 ??C (98.4 ??F)] Heart Rate Heart Rate: 62 Heart Rate: [61-71] Blood Pressure BP: 134/66 BP: (122-147)/(60-67) Respiratory Rate Resp: 18 Resp: [16-18] SpO2 SpO2: 97 % SpO2: [95 %-97 %] Physical Exam: GENERAL: Alert, awake, not in acute distress HEAD: Normocephalic, atraumatic LUNGS: CTA b/l, on RA CARDIAC: Regular rate and rhythm ABDOMEN/GI: Soft, minimally TTP in LLQ, improved, and non-tender elsewhere, minimally distended similar to previous EXT: Normal and symmetric movement, normal range of motion. WWP Current Medications: The following medications have been prescribed for you. If you notice any adverse reactions to yourmedications, please contact your primary care physician immediately or go to the nearest Emergency Department. Your Medications New Medications Dose Details amoxicillin-clavulanate 875-125 mg Tab Commonly known as: Augmentin Take 1 tablet by mouth 2 times daily for 7 days. 1 tablet Quantity: 8 tablet Refills: 0 Continued medications with new dosing Dose Details amLODIPine 5 mg tablet Commonly known as: Norvasc Take 1 tablet by mouth daily. What changed: when to take this 5 mg Quantity: 90 tablet Refills: 3 Continued medications, unchanged Dose Details acetaminophen 500 mg tablet Commonly known as: Tylenol Take 1,000 mg by mouth every 8 hours as needed for Pain. 1,000 mg Refills: 0 ascorbic acid (Vitamin C) 500 mg tablet Commonly known as: Vitamin C Take 1 tablet by mouth 3 times daily. 500 mg Quantity: 270 tablet Refills: 2 aspirin EC 81 mg EC (DR) tablet Take 1 tablet by mouth daily for 120 days. 81 mg Quantity: 30 tablet Refills: 3 atorvastatin 40 mg tablet Commonly known as: Lipitor Take 1 tablet by mouth every evening. 40 mg Quantity: 90 tablet Refills: 3 calciTRIoL 0.5 mcg capsule Commonly known as: Rocaltrol TAKE ONE CAPSULE BY MOUTH EVERY DAY Quantity: 90 capsule Refills: 3 glipiZIDE XL 10 mg ER 24 hr tablet Commonly known as: Glucotrol XL Take 10 mg by mouth 2 times daily. 10 mg Refills: 0 hydrALAZINE 100 mg tablet Commonly known as: Apresoline Take 1 tablet by mouth 2 times daily. 100 mg Quantity: 180 tablet Refills: 1 levothyroxine 137 mcg tablet Commonly known as: Synthroid Take 137 mcg by mouth daily. 137 mcg Refills: 0 Magnesium Gluconate 27 mg magnesium (500 mg) Tab TAKE 2 TABLETS BY MOUTH EVERY MORNING, 1 TABLET AT NOON, AND 2 TABLETS EVERY EVENING. Quantity: 450 tablet Refills: 2 metoprolol succinate XL 50 mg ER 24 hr tablet Commonly known as: Toprol-XL Take 1 tablet by mouth 2 times daily. 50 mg Quantity: 180 tablet Refills: 3 mycophenolate 250 mg Cap Commonly known as: Cellcept Take 1 capsule by mouth 2 times daily. 250 mg Quantity: 180 capsule Refills: 2 nitroGLYcerin 0.4 mg sublingual tablet Commonly known as: Nitrostat Place 1 tablet under the tongue every 5 minutes as needed for Chest pain. 0.4 mg Quantity: 90 tablet Refills: 12 tacrolimus 1 mg IR capsule Commonly known as: Prograf TAKE TWO CAPSULES BY MOUTH EVERY MORNING AND ONE CAPSULE NIGHTLY Quantity: 270 capsule Refills: 2 tamsulosin 0.4 mg Cap Commonly known as: Flomax Take 0.4 mg by mouth daily. 0.4 mg Refills: 0 UNREVIEWED medications - Discuss With Your Provider Dose Details multivitamin with minerals and lutein Tab Take 2 tablets by mouth daily. 2 tablet Quantity: 180 tablet Refills: 2 Disposition: Home Scheduled Appointments: The following appointments have been scheduled on your behalf: Future Appointments Date Time Provider Department Center 10/10/2022 8:20 AM LAB, THREE L Lab 3L [facility] 10/10/2022 10:00 AM Tal Eagle MD [facility] SMITH 2M [facility] 10/10/2022 12:00 PM Cathie Yeager MD [facility] SURG [facility] 10/22/2022 12:00 PM ECHO REGULAR [facility] Card [facility] 10/22/2022 2:30 PM Byron Brown MD [address] Outpatient Services/Studies: Tacrolimus level Standing Status: Future Standing Exp. Date: 03/28/23 Referral to Colorectal Surgery Referral Priority: Routine Referral Type: Consultation Referral Reason: Consult, Test & Treat Number of Visits Requested: 1 Special Instructions Given to Patient at Discharge:. An After Visit Summary was printed and given to the patient. Patient Instructions Discharge Instructions You were were admitted and treated for the following diagnosis: Diverticulitis As a result of your CT scans, you were found to have the following incidental findings, please discuss with your primary care provider at you next visit: 1. Acute diverticulitis. 2. Cholelithiasis. 3. Trace pleural collections CALL YOUR PHYSICIAN IF: 1. You have a fever greater than 101F 2. You have diarrhea or vomiting for >24 hours, or stop having bowel movements and passing flatus 3. You have worsening pain, not controlled with your pain medication. Follow up: Future Appointments Date Time Provider Department Center 10/22/2022 12:00 PM ECHO REGULAR [facility] 10/22/2022 2:30 PM Byron Brown MD [address] To Follow Up After Discharge: - Complete a 4 day course of Augmentin oral antibiotics beginning on 09/19/22 - Follow up in General Surgery clinic in roughly 2-4 weeks - Referral to Colorectal surgery - Tacrolimus level in 1 week, follow up with Transplant surgery will be arranged Pain Control: Non-steroidal anti-inflammatories (NSAIDS) such as aspirin, Aleve and ibuprofen (Advil, Motrin) aremedications that reduce pain and inflammation. To reduce your chance of side effects, it is recommended that you use Tylenol as needed for pain and then NSAIDs and use narcotics as the last resort. Alternative means of pain relief such as rest and relaxation, positioning, as well as decreasing stimulants such as coffee, tea, soft drinks, and nicotine may also help to alleviate pain. If you continue to experience significant pain 4-5 days after your discharge, it may be necessary to be re-evaluated by your physician. Driving Restrictions: - No driving if you are too sore to enter or exit your vehicle comfortably, or if you are too sore to easily check your blind spot. No driving while using prescription pain medications Activities: - Discuss return to work or school with your provide at your follow up appointment in the clinic. - Increase your activity slowly. If it hurts don't do it, but try again the following day. - You may tire easily, so frequent naps may be necessary. - Talk with your doctor about when you can return to work or school. - You may take a shower but have someone nearby in case you need help. Diet: Eat a well-balanced diet. Fresh fruits, vegetables and fiber-containing foods are recommended. Recommendations: - Take it easy for two weeks. Remember, If it hurts, don't do it. - Take several slow, short walks each day for the first two weeks, and gradually increase your distance. We recommend at least 4 times a day. - You can shower per usual routine Comfort: - Some soreness can be expected. - Take your pain medication as needed and prescribed. - Taper use of pain medication as pain lessens. Follow up appointments: 1. You will have follow-up appointments at [facility] as indicated in the ???Future Appointments and Orders?? section of your discharge summary. If X-rays or CT scans have been ordered for you prior to this appointment you will need to report to the Radiology department, desk 3T, 1 hour prior to your clinic appointment time. 2. If you do not have a scheduled follow-up appointment listed at the time of discharge, you will be notified of your scheduled appointment on the next business day. Please call [phone] if you do not hear from us by that time, as your timely follow-up is very important to us. Your care was managed by the Trauma and Acute Care Surgery Team at [facility]. If you have any questions or concerns, please feel free to contact us. Provider Contact Information: General Surgery: [facility] (after business hours): CC: Primary Care Physician: DO General Whitney Abdullahi None Your care was managed by the Trauma and Acute Care Surgery Team at [facility]. If you have any questions or concerns, please feel free to contact us. Provider Contact Information: General Surgery Scheduling: Nurses line for questions: [facility] (after business hours): CC: Urbano A MyrDO Aurora boyd APRN Signed: Nelson Jason MD Department of Surgery 09/19/2022 Acute Care Surgery Pager [phone] documented in this encounter Discharge Instructions * Patient Instructions* Nelson Jason MD - 09/18/2022 4:12 PM EDT Discharge Instructions You were were admitted and treated for the following diagnosis: Diverticulitis As a result of your CT scans, you were found to have the following incidental findings, please discuss with your primary care provider at you next visit: 1. Acute diverticulitis. 2. Cholelithiasis. 3. Trace pleural collections CALL YOUR PHYSICIAN IF: You have a fever greater than 101F You have diarrhea or vomiting for >24 hours, or stop having bowel movements and passing flatus You have worsening pain, not controlled with your pain medication. Follow up: Future Appointments Date Time Provider Department Center 10/22/2022 12:00 PM ECHO REGULAR [facility] Card [facility] 10/22/2022 2:30 PM Byron Brown MD [facility] CARD 4A [facility] To Follow Up After Discharge: - Complete a 4 day course of Augmentin oral antibiotics beginning on 09/19/22 - Follow up in General Surgery clinic in roughly 2-4 weeks - Referral to Colorectal surgery - Tacrolimus level in 1 week, follow up with Transplant surgery will be arranged Pain Control: Non-steroidal anti-inflammatories (NSAIDS) such as aspirin, Aleve and ibuprofen (Advil, Motrin) aremedications that reduce pain and inflammation. To reduce your chance of side effects, it is recommended that you use Tylenol as needed for pain and then NSAIDs and use narcotics as the last resort. Alternative means of pain relief such as rest and relaxation, positioning, as well as decreasing stimulants such as coffee, tea, soft drinks, and nicotine may also help to alleviate pain. If you continue to experience significant pain 4-5 days after your discharge, it may be necessary to be re-evaluated by your physician. Driving Restrictions: - No driving if you are too sore to enter or exit your vehicle comfortably, or if you are too sore to easily check your blind spot. No driving while using prescription pain medications Activities: - Discuss return to work or school with your provide at your follow up appointment in the clinic. - Increase your activity slowly. If it hurts don't do it, but try again the following day. - You may tire easily, so frequent naps may be necessary. - Talk with your doctor about when you can return to work or school. - You may take a shower but have someone nearby in case you need help. Diet: Eat a well-balanced diet. Fresh fruits, vegetables and fiber-containing foods are recommended. Recommendations: - Take it easy for two weeks. Remember, If it hurts, don't do it. - Take several slow, short walks each day for the first two weeks, and gradually increase your distance. We recommend at least 4 times a day. - You can shower per usual routine Comfort: - Some soreness can be expected. - Take your pain medication as needed and prescribed. - Taper use of pain medication as pain lessens. Follow up appointments: 1. You will have follow-up appointments at [facility] as indicated in the ???Future Appointments and Orders?? section of your discharge summary. If X-rays or CT scans have been ordered for you prior to this appointment you will need to report to the Radiology department, desk 3T, 1 hour prior to your clinic appointment time. 2. If you do not have a scheduled follow-up appointment listed at the time of discharge, you will be notified of your scheduled appointment on the next business day. Please call [phone] if you do not hear from us by that time, as your timely follow-up is very important to us. Your care was managed by the Trauma and Acute Care Surgery Team at [facility]. If you have any questions or concerns, please feel free to contact us. Provider Contact Information: General Surgery: [facility] (after business hours): CC: Primary Care Physician: Urbano Jimenez DO * Attachments The following attachments cannot be sent through Care Everywhere. * Diverticulitis (Sudanese) * Diverticulosis and Diverticulitis: General Info (Sudanese) * GI Tract: Lower: Anatomy Sketch (Sudanese) * Acute Cholecystitis: General Info (Sudanese) documented in this encounter Medications at Time [...] Tablet Take 137 mcg by mouth daily. amoxicillin-clavulanate (Augmentin) 875-125 mg Tablet Take 1 tablet by mouth 2 times daily for 7 days. 8 tablet 09/20/2022 09/27/2022 amoxicillin-clavulanate (Augmentin) 875-125 mg Tablet Take 1 tablet by mouth 2 times daily for 7 days. 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 30 tablet 3 07/15/2022 11/12/2022 hydrALAZINE (Apresoline) 100 mg Tablet Take 1 [...] 10/28/2021 11/13/2022 documented as of this encounter Progress Notes * Nelson Jason MD - 09/18/2022 4:24 PM EDT ACS Discharge Scheduling Note: ID: Cody Bolden is a 72 y.o. male Who presented with abdominal pain, found to have acute diverticulitis with microperforation managed non-operatively OR CASE INFORMATION: None FOLLOW-UP NEEDED: Does pt need to f-u with surgeon or OUTSOLE COMPRESSOR (please indicate reason if attending provider): OUTSOLE COMPRESSOR How soon should ACS f/u be? 2-4 weeks Does patient need imaging prior to ACS f/u? No Are CT/MRI Safety questions complete (if needed)? No Does patient have alessandro/sutures? When should they be removed? What service is responsible? No Does patient need labs with TACS f/u? No Follow-up with other services? Yes Advise of Service and needs. Colorectal - hx sigmoid diverticulitis, patient would like to discuss surgical options Transplant - post hospital follow up Imaging orders entered: No Radiology Safety questions done for MRI/CT? No New or current ostomy? Ostomy nurse shared visit No Mobility concerns: Fully ambulatory Wound vac (requires 60min clinic visit) N/A On vent? If Yes - Needs to have someone from facility and supplies. No On Dialysis: No INCIDENTAL FINDINGS Incidental Findings (yes/no): No OPIOID CONSENT/NARCOTIC AGREEMENTS Current Month Narcotic Consent? N/A Isolation No Isolation D/c to: Home PCP Name: DO Nelson Abdullahi MD 09/18/2022 * Margarita Smiley RN - 09/18/2022 11:53 AM EDTSummary: Progress Notes Fully oriented, endorses 2/10 pain in abdomen, abdomen is soft and tender. Pt's CT scan showed improvement and pt feeling less pain than past days. Surgery cancelled for this AM and resumed renal diet. This AM had [id number], multiple yogurts for lunchtime, packet of miralax and full dinner including turkey, mashed potatoes, green beans and a roll. No increase in pain or change in symptoms re:abdomen. Pt intermittently passing gas throughout the day, but not BM yet. Had loose BM yesterday. MD's aware. Continuous LR dc'ed. Pt showered and ambulated x3 in halls today, independently and without any symptoms. Will continue to monitor pain, bowel pattern, and I+O's. Spoke to Mara x2 on phone and she confirmed understanding of plan for patient to possibly dc tomorrow. * Nelson Jason MD - 09/18/2022 9:47 AM EDT Acute Care Surgery Daily Progress Note ID:72 y.o. 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 Procedures: - None 24 Hour Events: - Had worsened abdominal pain yesterday, with concern for ?peritonitis. Repeat CT A/P was performedwhich revealed relatively unchanged sigmoid diverticulitis - Repeat abdominal exam overnight was [id number] - No acute events overnight Secondary Issues: Past Medical History: Diagnosis Date ??? RAY [...] 2 diabetes mellitus ??? Weight increase 08/12/2016 Current Medications: ??? polyethylene glycoL (MIRALAX) oral powder 17 g Oral BID ??? tacrolimus 1 mg Oral Daily ??? insulin lispro 1-4 Units Subcutaneous Q4H JUAN R ??? levothyroxine 137 mcg Oral QAM ??? pantoprazole EC 40 mg Oral Daily ??? atorvastatin 40 mg Oral QPM ??? calciTRIoL 0.5 mcg Oral Daily ??? mycophenolate 250 mg Oral BID ??? ascorbic acid (Vitamin C) 500 mg Oral TID ??? tacrolimus 1 mg Oral Nightly ??? metoprolol succinate XL 50 mg Oral BID ??? amLODIPine 5 mg Oral Nightly ??? aspirin EC 81 mg Oral Daily ??? hydrALAZINE 100 mg Oral BID ??? sodium chloride 0.9 % (flush) 5 mL Intravenous BID ??? senna-docusate 2 tablet Oral BID ??? heparin (porcine) 5,000 Units Subcutaneous Q8H JUAN R ??? piperacillin-tazobactam 3.375 g Intravenous Q8H ??? tamsulosin 0.4 mg Oral Daily Vital Signs: VITALS (24hr Range): Temp Temp: [36.3 ??C (97.3 ??F)-36.9 ??C (98.4 ??F)] , HR Heart Rate: [62-66] , BP BP: (93-146)/(50-66) , RR Resp: [14-16] , SpO2 SpO2: [92 %-98 %] I/O: Intake/Output Summary (Last 24 hours) at 09/18/2022 1239 Last data filed at 09/18/2022 1223 Gross per 24 hour Intake 2243.92 ml Output 2825 ml Net -581.08 ml Physical Exam: GENERAL: Alert, awake, not in acute distress HEAD: Normocephalic, atraumatic LUNGS: CTA b/l, on RA CARDIAC: Regular rate and rhythm ABDOMEN/GI: Soft, moderately tender to palpation LLQ, improved compared to yesterday, distended similar to previous EXT: Normal and symmetric movement, normal range of motion. [facility] Labs: Recent Labs 09/18/22 0105 09/17/22 0051 09/16/22 0049 WBC 9.1 8.4 8.0 HGB 13.4* 12.8* 13.6* HCT 38.0* 37.1* 39.1* PLATELET 261 229 224 Recent Labs 09/18/225 09/17/22 0051 09/16/22 0049 NA 142 140 141 K 3.3* 3.7 3.6 CL 104 107 107 CO2 25 21* 24 BUN 12 11 6* CREATININE 1.13 1.52* 1.20 GLUCOSE 119 173 135 CALCIUM 8.9 9.0 8.7 MAGNESIUM 0.47* 0.58* 0.64* PHOS 2.1* 2.4* 1.9* Microbiology: Microbiology Results (Last 30 days) No results found for the last 720 hours. New Imagin09/12/2021 CT A/P (Read from OSH): Acute mild diverticulitis of the proximal sigmoid colon. Mesenteric microperforation with no abscess. 09/17/22 CT A/P IMPRESSION 1. Acute diverticulitis. 2. Cholelithiasis. 3. Trace pleural collections. Assessment: 72 y.o. 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 The patient was seen at bedside. Compared to his change in abdominal exam yesterday, it appears that the diffuse tenderness has subsided and is now more consistent with his clinical picture and radiographic evidence of sigmoid diverticulitis. CRP stable this AM at 63 from 67. and his WBC was 9.1 from 8.4. Given the improved abdominal exam and stable CT scan, we will not proceed to the operating room at this time. Low residue/ low fiber diet will be resumed and we will continue serial abdominal exams. Miralax increased to BID as patient feels mildly distended and last BM was overnight 09/15-09/16 Plan: Neuro: Tylenol 975 Q6 PRN, Oxy 5mg Q4 PRN CV: Continue home Amlodipine 5mg daily, ASA 81, Hydralazine 100mg BID, Metoprolol succinate 50mg BID, Atorvastatin 40mg nightly Resp: Encourage IS, OOB, BRIONNA, CTM GI: PPI, antiemetics PRN, Miralax BID, Pericolace BID FEN: LR 75mL/hr, Renal diet 2 GM NA; Low Residue/Fiber Renal//TXP: Strict I/Os, monitor UOP, continue home Mycophenolate 250mg BID, Tacrolimus 1mg qAM +1mg qPM, appreciate Transplant Medicine recommendations, Flomax 0.4 daily Heme: SQH TID ID: IV Zosyn Q8 Endo: Cont home Levothyroxine 137mcg daily Nelson Jason MD 09/18/2022 Acute Care Surgery Pager [phone] Associated attestation - Dyan Sears MD - 09/18/2022 4:27 PM EDT ACS Attending Addendum I have seen the patient in person and reviewed the above history and I agree with the details as written. The assessment and plan were formulated in discussion with me and I agree with them as documented. Abdominal pain markedly improved and CT from yesterday reassuring/better from admission scan. Otherwise stable. Will resume renal diet and CTM. Possible d/c tomorrow. Dyan Sears MD * Janet Perkins MD - 09/17/2022 6:18 PM EDT Acute Care Surgery Daily Progress Note ID:[id number] y.o. 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 Procedures: - None 24 Hour Events: - No acute events overnight Secondary Issues: Past Medical History: Diagnosis Date ??? RAY [...] 2 diabetes mellitus ??? Weight increase 08/12/2016 Current Medications: ??? tacrolimus 1 mg Oral Daily ??? insulin lispro 1-4 Units Subcutaneous Q4H JUAN R ??? levothyroxine 137 mcg Oral QAM ??? pantoprazole EC 40 mg Oral Daily ??? atorvastatin 40 mg Oral QPM ??? calciTRIoL 0.5 mcg Oral Daily ??? mycophenolate 250 mg Oral BID ??? ascorbic acid (Vitamin C) 500 mg Oral TID ??? tacrolimus 1 mg Oral Nightly ??? metoprolol succinate XL 50 mg Oral BID ??? amLODIPine 5 mg Oral Nightly ??? aspirin EC 81 mg Oral Daily ??? hydrALAZINE 100 mg Oral BID ??? sodium chloride 0.9 % (flush) 5 mL Intravenous BID ??? senna-docusate 2 tablet Oral BID ??? heparin (porcine) 5,000 Units Subcutaneous Q8H JUAN R ??? polyethylene glycoL (MIRALAX) oral powder 17 g Oral Daily ??? piperacillin-tazobactam 3.375 g Intravenous Q8H ??? tamsulosin 0.4 mg Oral Daily Vital Signs: VITALS (24hr Range): Temp Temp: [36.6 ??C (97.9 ??F)-36.9 ??C (98.4 ??F)] , HR Heart Rate: --, BP BP: (110-152)/(52-69) , RR Resp: [16] , SpO2 SpO2: [93 %-98 %] I/O: Intake/Output Summary (Last 24 hours) at 09/17/2022 1818 Last data filed at 09/17/2022 1700 Gross per 24 hour Intake 720 ml Output 1075 ml Net -355 ml Physical Exam: GENERAL: Alert, awake, not in acute distress HEAD: Normocephalic, atraumatic LUNGS: CTA b/l, on RA CARDIAC: Regular rate and rhythm ABDOMEN/GI: Soft, tender to palpation in all quadrants, worse than previous, distended similar to previous EXT: Normal and symmetric movement, normal range of motion Labs: Recent Labs 09/17/22 0051 09/16/22 0049 09/15/22 0011 WBC 8.4 8.0 8.0 HGB 12.8* 13.6* 13.2* HCT 37.1* 39.1* 38.2* PLATELET 229 224 217 Recent Labs 09/17/22 0051 09/16/22 0049 09/15/22 0011 NA 140 141 140 K 3.7 3.6 3.7 CL 107 107 106 CO2 21* 24 26 BUN 11 6* 9* CREATININE 1.52* 1.20 1.28 GLUCOSE 173 135 202* CALCIUM 9.0 8.7 8.5 MAGNESIUM 0.58* 0.64* 0.78 PHOS 2.4* 1.9* 2.3* Microbiology: Microbiology Results (Last 30 days) No results found for the last 720 hours. New Imagin09/12/2021 CT A/P (Read from OSH): Acute mild diverticulitis of the proximal sigmoid colon. Mesenteric microperforation with no abscess. 09/17/22 CT A/P IMPRESSION 1. Acute diverticulitis. 2. Cholelithiasis. 3. Trace pleural collections. Assessment: 72 y.o. 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 The patient was seen at bedside. On palpation of his abdomen, the patient winced in pain in all quadrants. This is worse than previous when the patient was only tender in his LLQ. His CRP was 67.5 this AM from 57.7 and his WBC was 8.4 from 8.0. Given his clinical presentation, he was ordered for a CT A/P with Contrast, started on a sodium bicarb drip per Transplant Medicine, made NPO, and startedon mIVF. We will continue serial abdominal exams. Plan: Neuro: Tylenol 975 Q6 PRN, Oxy 5mg Q4 PRN CV: Continue home Amlodipine 5mg daily, ASA 81, Hydralazine 100mg BID, Metoprolol succinate 50mg BID, Atorvastatin 40mg nightly Resp: Encourage IS, OOB, BRIONNA, CTM GI: PPI, antiemetics PRN, Miralax daily, Pericolace BID FEN: LR 75mL/hr, NPO diet (Give Meds) Renal//TXP: Strict I/Os, monitor UOP, continue home Mycophenolate 250mg BID, Tacrolimus 1mg qAM +1mg qPM, appreciate Transplant Medicine recommendations, Flomax 0.4 daily Heme: SQH TID ID: IV Zosyn Q8 Endo: Cont home Levothyroxine 137mcg daily Janet Perkins MD 09/17/2022 Acute Care Surgery Pager [phone] Associated attestation - Dyan Sears MD - 09/18/2022 2:01 PM EDT ACS Attending Addendum I have seen the patient in person and reviewed the above history and I agree with the details as written. The assessment and plan were formulated in discussion with me and I agree with them as documented. Dyan Sears MD * Jomar Cantor RN - 09/17/2022 5:02 PM EDT OUTCOME EVALUATION NOTE: OUTCOME SUMMARY: Pt A&OX4. VSS. Pt denies pain, but c/o abdominal tenderness LLQ. Pt toleratinga Renal low NA diet. Pt tolerating well, no c/o nausea.UOPA via urinal. Pt passing flatus.No BMs this shift. multicut line operator to bedside to educate if surgical intervention Is required. Pt did not ambulate this shift. Pt rested in bed this shift. Na bicarb gtt given for contrast dye. Pt to CT this shift. Pt NPO @ 0005 for possible OR. PLAN MOVING FORWARD: Monitor/manage pain. IVABX Encourage OOB INDIVIDUALIZED FALL PREVENTION INTERVENTIONS: Low Fall Risk Patient-specific fall risk factors per assessment: [current deficits]:2 or more active diagnoses,has an actively infusing IV line, has generalized weakness . Assistance [level of assistance required for transfers and ambulation]: Independent Supervision [direct monitoring required during toileting and ADLs]: Independent Surveillance [continuous indirect monitoring]: Hourly rounding, observation by staff, NKE at bedside. environmental modifications (reduce clutter, lighting adjusted for safety, IV tubing and cords are free from the floor), glasses at bedside, nonskid shoes/slippers when out of bed, bed in low position, upper position siderails raised x2 (x3), wheels locked, call light in reach, ID bands on, yellow falls ID band on Patient-specific fall prevention interventions for sensory deficits provided, if applicable: [X] N/A CPG GOAL OUTCOME EVALUATION: * Gail Miller RN - 09/16/2022 11:30 PM EDT Assumed care of pt. * Brenda Donnelly RN - 09/16/2022 10:46 PM EDT Assumed care at 1900. Pt sleeping, RR even and unlabored, VSS. Meds given per sep. Report given to WILLIAM Das at 2356. * Franko Sears MD - 09/16/2022 4:22 PM EDT Acute Care Surgery Daily Progress Note ID:[id number] y.o. 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 Procedures: - None 24 Hour Events: - MIRIAM - Continues on Zosyn - Seen by transplant medicine Secondary Issues: Past Medical History: Diagnosis Date ??? RAY [...] 2 diabetes mellitus ??? Weight increase 08/12/2016 Current Medications: ??? [START ON 09/17/2022] tacrolimus 1 mg Oral Daily ??? insulin lispro 1-4 Units Subcutaneous Q4H JUAN R ??? levothyroxine 137 mcg Oral QAM ??? pantoprazole EC 40 mg Oral Daily ??? atorvastatin 40 mg Oral QPM ??? calciTRIoL 0.5 mcg Oral Daily ??? mycophenolate 250 mg Oral BID ??? ascorbic acid (Vitamin C) 500 mg Oral TID ??? tacrolimus 1 mg Oral Nightly ??? metoprolol succinate XL 50 mg Oral BID ??? amLODIPine 5 mg Oral Nightly ??? aspirin EC 81 mg Oral Daily ??? hydrALAZINE 100 mg Oral BID ??? sodium chloride 0.9 % (flush) 5 mL Intravenous BID ??? senna-docusate 2 tablet Oral BID ??? heparin (porcine) 5,000 Units Subcutaneous Q8H JUAN R ??? polyethylene glycoL (MIRALAX) oral powder 17 g Oral Daily ??? piperacillin-tazobactam 3.375 g Intravenous Q8H ??? tamsulosin 0.4 mg Oral Daily Vital Signs: VITALS (24hr Range): Temp Temp: [36.3 ??C (97.3 ??F)-36.7 ??C (98.1 ??F)] , HR Heart Rate: --, BP BP: (127-147)/(51-65) , RR Resp: [15-18] , SpO2 SpO2: [91 %-97 %] I/O: Intake/Output Summary (Last 24 hours) at 09/16/2022 1622 Last data filed at 09/16/2022 1404 Gross per 24 hour Intake 3061 ml Output 2195 ml Net 866 ml Physical Exam: GENERAL: Alert, awake and in no apparent distress HEAD: Normocephalic, atraumatic LUNGS: No increased WOB on RA CARDIAC: Regular rate ABDOMEN/GI: Soft, focal peritonitis in the left lower quadrant but improved from yesterday, mildly distended, no abrasions or contusions EXT: Normal and symmetric movement, normal range of motion Labs: Recent Labs 09/16/22 0049 09/15/22 0011 WBC 8.0 8.0 HGB 13.6* 13.2* HCT 39.1* 38.2* PLATELET 224 217 Recent Labs 09/16/22 0049 09/15/22 0011 NA 141 140 K 3.6 3.7 CL 107 106 CO2 24 26 BUN 6* 9* CREATININE 1.20 1.28 GLUCOSE 135 202* CALCIUM 8.7 8.5 MAGNESIUM 0.64* 0.78 PHOS 1.9* 2.3* Microbiology: Microbiology Results (Last 30 days) No results found for the last 720 hours. New Imagin09/12/2021 CT A/P (Read from OSH): Acute mild diverticulitis of the proximal sigmoid colon. Mesenteric microperforation with no abscess. Assessment: 72 y.o. 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 The patient was seen at bedside. Pain is somewhat improved and slightly less tender in LLQ on exam compared to yesterday. He has been ambulating frequently and is voiding adequately. BM x1 yesterday.His WBC this AM was stable at 8.0 and his CRP improved to 57.7 from 80.3. Transplant Medicine is involved with the patient's care and will be following him during his admission. Plan: Neuro: tylenol 975 q6 PRN, Oxy 5mg q4h PRN CV: Continue home Amlodipine 5mg daily, ASA 81, Hydralazine 100mg BID, Metoprolol succinate 50mg BID, Atorvastatin 40mg nightly Resp: Encourage IS, OOB. BRIONNA, CTM GI: PPI, antiemetics PRN, Miralax daily, Pericolace BID FEN: d/brenda mIVF, Renal diet 2 GM NA Renal//TXP: Strict I/Os, monitor UOP, continue home Mycophenolate 250mg BID, Tacrolimus 1mg qAM +1mg qPM, appreciate Transplant Medicine recommendations, flomax 0.4 daily Heme: SQH TID ID: IV Zosyn Q8 (day 2/4) Endo: Cont home Levothyroxine 137mcg daily Franko Sears MD 09/16/2022 Acute Care Surgery Pager [phone] Associated attestation - Dyan Sears MD - 09/17/2022 4:46 PM EDT ACS Attending Addendum I have seen the patient in person and reviewed the above history and I agree with the details as written. The assessment and plan were formulated in discussion with me and I agree with them as documented. Pain stable-improved and CRP down. Endorsing hunger. Will trial diet and if fails, likely will needoperative intervention. Dyan Sears MD * Jomar Cantor RN - 09/16/2022 2:24 PM EDT OUTCOME EVALUATION NOTE: OUTCOME SUMMARY: Pt A&OX4. VSS. Pt denies pain, but c/o abdominal tenderness LLQ. Pt diet advanced from clear liquids to Renal diet 2g Na. Pt tolerating well, no c/o nausea.UOPA via urinal. Pt passing flatus.No BMs this shift. multicut line operator to bedside to educate if surgical intervention Is required. Pt did not ambulate this shift. Pt rested in bed this shift. PLAN MOVING FORWARD: Monitor/manage pain. IVABX Encourage OOB INDIVIDUALIZED FALL PREVENTION INTERVENTIONS: Low Fall Risk Patient-specific fall risk factors per assessment: [current deficits]:2 or more active diagnoses,has an actively infusing IV line, has generalized weakness . Assistance [level of assistance required for transfers and ambulation]: Independent Supervision [direct monitoring required during toileting and ADLs]: Independent Surveillance [continuous indirect monitoring]: Hourly rounding, observation by staff, NKE at bedside. environmental modifications (reduce clutter, lighting adjusted for safety, IV tubing and cords are free from the floor), glasses at bedside, nonskid shoes/slippers when out of bed, bed in low position, upper position siderails raised x2 (x3), wheels locked, call light in reach, ID bands on, yellow falls ID band on Patient-specific fall prevention interventions for sensory deficits provided, if applicable: [X] N/A CPG GOAL OUTCOME EVALUATION: * Kina Adkins RN - 09/16/2022 2:54 AM EDT OUTCOME EVALUATION NOTE: OUTCOME SUMMARY: Pt aox4, able to make needs known and met. Slept between care. VSS on RA. Tolerating clear liquid diet, denies N/V. PRN pain meds given for LLQ tenderness. Use of bedside urinal in adequate amounts. Will continue to monitor. PLAN MOVING FORWARD: -Maintain safety -Monitor pain -Encourage ambulation -IV ABX -ACHS BG checks -D/C planning INDIVIDUALIZED FALL PREVENTION INTERVENTIONS: Patient-specific fall risk factors per assessment: [current deficits]: Hospital setting, lines/draines, pain Assistance [level of assistance required for transfers and ambulation]: Independent Supervision [direct monitoring required during toileting and ADLs]: Eyes on/ arms reach Surveillance [continuous indirect monitoring]: Purposeful rounding maintained, Masimo alarms active, call robles within reach, bed locked in low position, clutter free environment, room near nurses station Patient-specific fall prevention interventions for sensory deficits provided, if applicable: [X] N/A * Marisela Astorga RN - 09/15/2022 5:07 PM EDT OUTCOME EVALUATION NOTE: OUTCOME SUMMARY: Assumed care at 0700. VSS on RA. A&Ox4. LLQ tenderness well controlled with oxycodone. Voiding adequate amounts of urine. BM x1 this shift. MIVF continuous. Tolerating a clear liquid diet. Ambulating independently. Ostomy nurse consulted. Call robles within reach. Safety measures maintained. PLAN MOVING FORWARD: Pain control MIVF IV abx INDIVIDUALIZED FALL PREVENTION INTERVENTIONS: Patient-specific fall risk factors per assessment: [current deficits]: Lines, weakness Assistance [level of assistance required for transfers and ambulation]: Independent Supervision [direct monitoring required during toileting and ADLs]: Eyes on Surveillance [continuous indirect monitoring]: Masimo, hourly rounding Patient-specific fall prevention interventions for sensory deficits provided, if applicable: [X] N/A CPG GOAL OUTCOME EVALUATION: * Janet Perkins MD - 09/15/2022 1:15 PM EDT Acute Care Surgery Daily Progress Note ID:[id number] y.o. Male with HTN, HLD, T2DM, hx ASCVD s/p PCI, tachy-sakina syndrome s/p PPM, Afib s/p Watchman (05/2022) (not on AC d/t hx intracranial bleed), hx basal ganglia hemorrhage (02/2021), hx embolic stroke (05/2014), hypothyroidism, hx uncomplicated diverticulitis, BPH, and ESRD s/p DDKT (09/16/2015) c/b transplanted ureter stricture and revision with Urology (05/2016) who was admitted to [facility] on 09/14/2022 for diverticulitis with microperforation. Problem List: - Acute pain Procedures: - None 24 Hour Events: - Patient admitted to ACS service - Started on mIVF and Zosyn - Continued on home Tacrolimus dosing and Cellcept Secondary Issues: Past Medical History: Diagnosis Date ??? RYA (acute kidney injury) 11/27/2015 ??? Back pain [...] 2 diabetes mellitus ??? Weight increase 08/12/2016 Current Medications: ??? insulin lispro 1-4 Units Subcutaneous Q4H JAUN R ??? levothyroxine 137 mcg Oral QAM ??? pantoprazole EC 40 mg Oral Daily ??? atorvastatin 40 mg Oral QPM ??? calciTRIoL 0.5 mcg Oral Daily ??? mycophenolate 250 mg Oral BID ??? ascorbic acid (Vitamin C) 500 mg Oral TID ??? tacrolimus 2 mg Oral Daily ??? tacrolimus 1 mg Oral Nightly ??? metoprolol succinate XL 50 mg Oral BID ??? amLODIPine 5 mg Oral Nightly ??? aspirin EC 81 mg Oral Daily ??? hydrALAZINE 100 mg Oral BID ??? sodium chloride 0.9 % (flush) 5 mL Intravenous BID ??? senna-docusate 2 tablet Oral BID ??? heparin (porcine) 5,000 Units Subcutaneous Q8H JUAN R ??? polyethylene glycoL (MIRALAX) oral powder 17 g Oral Daily ??? piperacillin-tazobactam 3.375 g Intravenous Q8H ??? tamsulosin 0.4 mg Oral Daily Vital Signs: VITALS (24hr Range): Temp Temp: [36.4 ??C (97.5 ??F)-36.6 ??C (97.9 ??F)] , HR Heart Rate: [61-73] , BP BP: (123-143)/(57-69) , RR Resp: [17-18] , SpO2 SpO2: [93 %-95 %] I/O: Intake/Output Summary (Last 24 hours) at 09/15/2022 1315 Last data filed at 09/15/2022 1207 Gross per 24 hour Intake 911 ml Output 2420 ml Net -1509 ml Physical Exam: GENERAL: Alert, awake and in no apparent distress HEAD: Normocephalic, atraumatic LUNGS: Equal, clear breath sounds bilaterally, on RA CARDIAC: Regular rate and rhythm, watchman ABDOMEN/GI: Soft, focal peritonitis in the left lower quadrant, mildly distended, no abrasions or contusions EXT: Normal and symmetric movement, normal range of motion Labs: Recent Labs 09/15/22 0011 WBC 8.0 HGB 13.2* HCT 38.2* PLATELET 217 Recent Labs 09/15/22 0011 NA 140 K 3.7 CL 106 CO2 26 BUN 9* CREATININE 1.28 GLUCOSE 202* CALCIUM 8.5 MAGNESIUM 0.78 PHOS 2.3* Microbiology: Microbiology Results (Last 30 days) No results found for the last 720 hours. New Imagin09/12/2021 CT A/P (Read from OSH): Acute mild diverticulitis of the proximal sigmoid colon. Mesenteric microperforation with no abscess. Assessment: 72 y.o. 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 The patient was seen at bedside. Says his pain is reduced from previous but on exam he is focally peritonitic in his LLQ. He has been ambulating frequently and is voiding adequately. Per the patient,his last BM was yesterday. His WBC this AM was 8.0 and his CRP was 80.3. Transplant Medicine is involved with the patient's care and will be following him during his admission. Plan: Neuro: Scheduled Tylenol, Oxy 5mg q4h PRN CV: Continue home Amlodipine 5mg daily, ASA 81, Hydralazine 100mg BID, Metoprolol succinate 50mg BID, Atorvastatin 40mg nightly Resp: Encourage IS, OOB. BRIONNA, CTM GI: PPI, antiemetics PRN, Miralax daily, Pericolace BID FEN: mIVF @ 75, Clear Liquid Diet Renal//TXP: Strict I/Os, monitor UOP, continue home Mycophenolate 250mg BID, Tacrolimus 2mg qAM +1mg qPM, f/u Transplant Medicine recommendations Heme: SQH TID ID: IV Zosyn [id number] Endo: Cont home Levothyroxine 137mcg daily Janet Perkins MD 09/15/2022 Acute Care Surgery Pager [phone] Associated attestation - Dyan Sears MD - 09/15/2022 4:39 PM EDT ACS Attending Addendum I have seen the patient in person and reviewed the above history and I agree with the details as written. The assessment and plan were formulated in discussion with me and I agree with them as documented. Yash looks well this morning, vials normal. Still with notable focal peritonitis. His last episode of diverticulitis resolved more quickly, by his report. He is hungry. I am hesitant to advance his diet until he demonstrates decreased tenderness on exam. We discussed possibility of operative intervention on this hospitalization. Will have multicut line operator see him in consultation for educational purposes.Continue Zosyn, Clears. Transplant consult. Dyan Sears MD * Ayaz Zayas RN - 09/14/2022 11:05 PM EDT Pt arrived from OSH at 1999. paged to assess. Pt A&Ox4. VSS on RA. C/o abdominal pain to LLQ, worse with movement. Medicated with PRNs per MAR. Tolerating clear liquid diet. Denies N/V/D. NPO at midnight. Standby assist to ambulate to bathroom. AUOP via urinal. IVF initiated per orders. Fistula present to L arm. Pt oriented to room and surroundings.Call light within reach and safety maintained. documented in this encounter H&P Notes * Shin Aguillon MD - 09/14/2022 8:57 PM EDT General Surgery Admission History & Physical Patient Name: Cody Bolden MR#: [id number] : 1950 Admission Date: 09/14/2022 Indication for Admission: Diverticulitis History of Present Illness: Cody Bolden is a 72 y.o. 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 He presents to [facility] on 09/14/2022 as a transfer from OSH for diverticulitis with microperforation, he was transferred for higher level of care in setting of his kidney transplant history. Yash reports that he started to have some mild abdominal discomfort on 09/11. His then encouragedhim to present to OSH on 09/12 due to the history of his kidney transplant in the setting of his newabdominal pain. He reports the pain was located in his lower abdomen, L > R. He describes the pain as a constant aching pain. He did not have any nausea, vomiting, fever, chills, chest pain, dyspnea. He does report an episode of diarrhea on 09/12, otherwise no changes in bowel habits. He reports 1 prior episode of uncomplicated diverticulitis about 3 years ago which was treated with antibioticsand resolved. CT scan at outside hospital was significant for acute mild diverticulitis of the proximal sigmoid colon with microperforation, no abscess. WBC at OSH was 9. He was treated with bowel rest, IV fluids,and IV antibiotics. He was evaluated by the surgical team at the outside hospital, however given his kidney transplant they did not feel comfortable managing his catheter in case he needed an operation, and was subsequently transferred to [facility]. He reports that his pain has improved since antibiotics were started. He has not had any nausea, vomiting. He has been tolerating full liquid diet prior to transfer. Reports his last bowel movement was 09/12. Past Medical History: Past Medical History: Diagnosis Date ??? RAY [...] ??? Weight increase 08/12/2016 Past Surgical History: Past Surgical History: Procedure Laterality Date ??? JOINT REPLACEMENT new right knee ??? PRG [facility]A 05/10/2020 FLUOROSCOPY (WRVU 0.17) performed by Joseph Ang MD at [facility] MAIN OR ? ? PRG DAVEY REAL TIME IMG 2D W PRB IMG ACQUIS I&R N/A 07/15/2022 TRANSESOPHAGEAL ECHOCARDIOGRAM (WRVU 2.55) performed by Ruchi Park MD at [facility] MAIN OR ??? PRO ANASTOMOSIS, AV, ANY SITE Left 05/09/2015 AV FISTULA CREATION, DIRECT HEMODIALYSIS, ANY SITE, EG ASHWINI FISTULA UPPER EXTREMITY performed by Qeu Amaro MD at [facility] MAIN OR ? ? PRO ARTHROPLASTY KNEE CONDYLE & PLATEAU MEDIAL & LAT COMPARTMENTS Right 11/25/2017 TOTAL KNEE ARTHROPLASTY (WRVU 20.72) performed by Breezy Dale MD at [facility] OR ??? PRO CYSTOURETHROSCOPY, URETER CATHETER Left 06/17/2018 CYSTO, RETROGRADE, URETEROPYELOGRAPHY (WRVU 2.37) [facility] Edinson [facility] III[facility] ??? PRO LAMINEC/FACETECT/FORAMIN, LUMBAR 1 SEG N/A 05/10/2020 LAMINECTOMY, FACETECTOMY & FORAMINOTOMY,LUMBAR, ONE LEVEL (WRVU 15.37) performed by Joseph Ang MD at [facility] OR ??? PRO LAMINOTOMY, LUMBAR DISK, 1 INTRSP N/A 05/10/2020 LAMINOTOMY, DECOMPRESSION, FORAMINOTOMY, LUMBAR (WRVU 13.18) performed by Joseph Ang MD at [facility] OR ??? PRO MICROSURG TECHNIQUES, REQ OPER MICROSCOPE N/A 05/10/2020 MICROSCOPE USE (WRVU 3.46) performed by Joseph Ang MD at [facility] OR ??? PRO PERQ CLSR TCAT L ATR APNDGE W/ENDOCARDIAL IMPLNT N/A 05/08/2022 @PERQ TRANSCATH CLOSURE LEFT ATRIAL APPENDAGE W ENDOCARDIAL IMPLANT, INC RAD S&I (WRVU 14) performed by Tal Diana MD at [facility] CATH LABS ??? PRO REIMPLANT URETER, SINGLE URETER Left 05/20/2016 @URETERONEOCYSTOSTOMY ANASTOMOSIS OF SINGLE URETER TO BLADDER performed by Santosh Arredondo MD at [facility] OR ??? PRO REIMPLANT URETER, SINGLE URETER N/A 05/20/2016 @URETERONEOCYSTOSTOMY ANASTOMOSIS OF SINGLE URETER TO BLADDER performed by Que Amaro MD at [facility] OR ??? PRO TRANSPLANT, PREP CADAVER RENAL GRAFT N/A 09/16/2015 @PREPARATION CADAVERIC RENAL ALLOGRAFT performed by Franko Larkin MD at [facility] OR ??? PRO TRANSPLANTATION OF KIDNEY N/A 09/16/2015 @KIDNEY TRANSPLANT, WITHOUT RECIPIENT NEPHRECTOMY performed by Franko Larkin MD at [facility] OR ??? TISSUE TRANSFER kidney ??? US RENAL TRANSPLANT LEFT Left 01/31/2019 US Renal Transplant Left 01/31/2019 [facility] RAD ULTRASOUND ??? US RENAL TRANSPLANT LEFT Left 02/07/2019 US Renal Transplant Left 02/07/2019 [facility] RAD ULTRASOUND Home Medications: Medications Prior to Admission Medication Sig Dispense Refill Last Dose ??? Magnesium Gluconate 27 mg magnesium (500 mg) Tablet TAKE 2 TABLETS BY MOUTH EVERY MORNING, 1 TABLET AT NOON, AND 2 TABLETS EVERY EVENING. 450 tablet 2 09/14/2022 ??? mycophenolate (Cellcept) 250 mg Capsule Take 1 capsule by mouth 2 times daily. 180 capsule 2 09/14/2022 ??? tacrolimus (Prograf) 1 mg Capsule TAKE TWO CAPSULES BY MOUTH EVERY MORNING AND ONE CAPSULE NIGHTLY 270 capsule 2 09/14/2022 ??? aspirin EC 81 mg Tablet, Delayed Release (E.C.) Take 1 tablet by mouth daily for 120 days. 30 tablet 3 09/14/2022 ??? metoprolol succinate XL (Toprol-XL) 50 mg Tablet Sustained Release 24 hr Take 1 tablet by mouth2 times daily. 180 tablet 3 09/14/2022 ??? amLODIPine (Norvasc) 5 mg Tablet Take 1 tablet by mouth daily. (Patient taking differently: Take 5 mg by mouth nightly.) 90 tablet 3 09/13/2022 ??? atorvastatin (Lipitor) 40 mg Tablet Take 1 tablet by mouth every evening. 90 tablet 3 09/14/2022 ??? calciTRIoL (Rocaltrol) 0.5 mcg Capsule TAKE ONE CAPSULE BY MOUTH EVERY DAY 90 capsule 3 09/14/2022 ??? ascorbic acid, Vitamin C, (Vitamin C) 500 mg Tablet Take 1 tablet by mouth 3 times daily. 270 tablet 2 09/14/2022 ??? glipiZIDE XL (Glucotrol XL) 10 mg Tablet Extended Rel 24 hr Take 10 mg by mouth 2 times daily. 09/14/2022 ??? tamsulosin (FLOMAX) 0.4 mg Capsule Take 0.4 mg by mouth daily. 09/14/2022 ??? acetaminophen (TYLENOL) 500 mg Tablet Take 1,000 mg by mouth every 8 hours as needed for Pain. 09/14/2022 ??? levothyroxine (SYNTHROID) 137 mcg Tablet Take 137 mcg by mouth daily. 09/14/2022 ??? hydrALAZINE (Apresoline) 100 mg Tablet Take 1 tablet by mouth 2 times daily. 180 tablet 1 Unknown ??? multivitamin with minerals and lutein Tablet Take 2 tablets by mouth daily. (Patient taking differently: Take 1 tablet by mouth 2 times daily.) 180 tablet 2 Unknown ??? nitroGLYcerin (NITROSTAT) 0.4 mg Tablet, Sublingual Place 1 tablet under the tongue every 5 minutes as needed for Chest pain. 90 tablet 12 Unknown Allergies: Allergies Allergen Reactions ??? [place] Past Family History: Family History Problem Relation Age of Onset ??? Chronic Obstructive Pulmonary Disease Mother ??? Arrhythmia Mother ??? Heart Disease Father Social History: Social History Tobacco Use ??? Smoking status: Light Smoker Types: Cigars ??? Smokeless tobacco: Never ??? Tobacco comments: cigars, one weekly Vaping Use ??? Vaping Use: Never used Substance Use Topics ??? Alcohol use: No ??? Drug use: Yes Frequency: 7.0 times per week Types: Marijuana ROS: As per HPI. Remainder of ROS is otherwise noncontributory. Vitals: Last Value Range last 24 hrs Temperature Temp: 36.4 ??C (97.5 ??F) Temp: [36.4 ??C (97.5 ??F)] Heart Rate Heart Rate: 68 Heart Rate: [68] No data recorded Blood Pressure BP: 130/69 BP: (130)/(69) BP (Arterial Line): -- Respiratory Rate Resp: 18 Resp: [18] SpO2 SpO2: 95 % SpO2: [95 %] O2 Device O2 Device: None (Room air) Physical Exam: GEN: resting comfortably in bed, pleasant, conversant, NAD HEENT: normocephalic, atraumatic CHEST: comfortable work of breathing on RA CV: regular rate, well perfused ABD: soft, nondistended, moderately tender to palpation in lower abdomen L > R, no guarding, no rebound, non-peritonitic EXTR: moving spontaneously, no edema SKIN: WWP NEURO: awake and alert, follows commands Labs: No results for input(s): WBC, HGB, HCT, PLATELET, PT, INR, PTT in the last 72 hours. No results for input(s): NA, K, CL, CO2, BUN, CREATININE, GLUCOSE, CALCIUM, MAGNESIUM, PHOS in the last 72 hours. Studies: 09/12/2021 CT A/P (Read from OSH): Acute mild diverticulitis of the proximal sigmoid colon. Mesenteric microperforation with no abscess. Assessment and Plan: Cody Bolden is a 72 y.o. male with HTN, HLD, T2DM, hx ASCVD s/p PCI, tachy-sakina syndrome s/pPPM, Afib s/p Watchman (05/2022) (not on AC d/t hx intracranial bleed), hx basal ganglia hemorrhage(02/2021), hx embolic stroke (05/2014), hypothyroidism, hx uncomplicated diverticulitis, BPH, and ESRD s/p DDKT (09/16/2015) c/b transplanted ureter stricture and revision with Urology (05/2016) who was admitted 09/14/2022 for diverticulitis. Plan: Neuro: Scheduled Tylenol. Oxy 5mg q4h PRN. CV: Hemodynamically stable. Continue home amlodipine 5mg daily, ASA 81, hydralazine 100mg BID, metoprolol succinate 50mg BID, atorvastatin 40mg daily, Resp: Encourage IS, OOB. BRIONNA, CTM GI: PPI, Antiemetics PRN. Miralax daily, Pericolace BID. FEN: F: mIVF @ 73 E: CTM, supplement prn N: Clear Liquid NPO diet (Give Meds) Cont home Vitamin C 500mg TID, calcitriol 0.5 mcg daily Renal//TXP: - Strict I/Os, monitor UOP. - Cont home mycophenolate 250mg BID, tacrolimus 2mg qAM + 1mg qPM. - Transplant Medicine consult in AM - Cont home tamsulosin Heme: SQH TID ID: - IV Zosyn Endo: Cont home levothyroxine 137mcg daily. Prophy: Resp: OOB, IS GI: PPI, antiemetics PRN DVT: chemoprophylaxis per above, SCDs, OOB Activity: AAT. Up in chair most of day. Ambulate in posey TID Dispo: - Floor Status - Code Status: Attempt Cardiopulmonary Resuscitation - Inpatient Miguel Rogers MD 09/14/2022 Acute Care Surgery Service Team pager [phone] Acute Care Surgery Attending Addendum: I have seen this patient and agree with the above note with the following additions and/or modifications. This is a 72-year-old gentleman who was transferred from [facility] with acute diverticulitis. He presented to that institution 2 days ago with left lower quadrant abdominal pain. He has a previous history of diverticulitis in the fall 2020. He has since undergone a colonoscopy 1 year ago. He denies any fevers or chills with this episode of diverticulitis. He states the pain is in the similar location but a little more intense. The pain was initially quitehigh but he states today it is down to about a 2 or 3. He did have a small, loose, bowel movements today. His appetite is fine. On exam he appears in no distress. Abdomen is moderately distended and dull to percussion. He does have focal peritonitis in the left lower quadrant. CT scan from 2 days ago reveals a phlegmon in the region of his colon just superficial to his transplanted kidney. This appears very similar to his previous episode of diverticulitis. He was able to recover from his prior episode with antibiotics alone so I am optimistic that we will be the case again. We will continue IV Zosyn and allow clear liquids this evening. We will consult transplant medicine tomorrow and check a Prograf level on admission today. If labs reveal a worsening leukocytosis will consider a repeatCT scan to see if there has been development of an abscess. documented in this encounter Miscellaneous Notes * Care Management Discharge - Joseph Barba RN - 09/19/2022 2:38 PM EDT CARE MANAGEMENT FINAL DISCHARGE NOTE Chart reviewed, care reviewed with primary team and at interdisciplinary rounds. Patient is medically ready for discharge to home. Needs for Transition of Care: Plan for discharge is: Home w/o Services Agency Referrals & Follow-up Care: Transportation: senior ride *[facility] Ride confirmed for 3:20. Pickup at [facility] by [facility]. Wheelchair van/Ambulance? No Functional status prior to admission: Independent Home Environment: Others in the home: spouse, pet(s). Current Living Arrangements: home/apartment/condo. Accessibility Concerns:4 stairs to enter and livees on one level. Current Functional Ability: Assistive Person, Independent DME used at home: none DME Needed at Discharge: None Patient is insured through: Primary Insurance: [employer] MANAGED MEDICARE Payor: [employer] MANAGED MEDICARE / Plan: [employer] MANAGED MEDICARE / Product Type: *No Product type* / Secondary Insurance: COMMERCIAL GENERIC Prescription Coverage: Yes This plan was formulated with input from patient, and team. All are in agreement with plan. Mark BELLO, RN Case Management [phone] * Plan of Care - Margarita Smiley RN - 09/19/2022 11:00 AM EDT Problem: Fall Injury Risk Goal: Absence of Fall and Fall-Related Injury Outcome: Outcome (s) achieved Problem: Pain Acute Goal: Acceptable Pain Control and Functional Ability Outcome: Outcome (s) achieved Problem: Adjustment to Illness (Bowel Disease, Inflammatory) Goal: Optimal Adaptation to Chronic Illness Outcome: Outcome (s) achieved Problem: Diarrhea (Bowel Disease, Inflammatory) Goal: Diarrhea Symptom Relief Outcome: Outcome (s) achieved Problem: Infection (Bowel Disease, Inflammatory) Goal: Absence of Infection Signs and Symptoms Outcome: Outcome (s) achieved Problem: Nutrition Impaired (Bowel Disease, Inflammatory) Goal: Optimal Nutrition Outcome: Outcome (s) achieved Problem: Pain (Bowel Disease, Inflammatory) Goal: Acceptable Pain Control Outcome: Outcome (s) achieved * Care Management Discharge - Joseph Barba RN - 09/19/2022 9:37 AM EDT CARE MANAGEMENT FINAL DISCHARGE NOTE Chart reviewed, care reviewed with primary team and at interdisciplinary rounds. Patient is medically ready for discharge to home. Needs for Transition of Care: Plan for discharge is: Home w/o Services Agency Referrals & Follow-up Care: Transportation: family or friend will provide Wheelchair van/Ambulance? No Functional status prior to admission: Independent Home Environment: Others in the home: spouse, pet(s). Current Living Arrangements: home/apartment/condo. Accessibility Concerns:4 stairs to enter and livees on one level. Current Functional Ability: Assistive Person, Independent DME used at home: none DME Needed at Discharge: None Patient is insured through: Primary Insurance: [employer] MEDICARE Payor: [employer]ARE / Plan: [employer] MEDICARE / Product Type: *No Product type* / Secondary Insurance: COMMERCIAL GENERIC Prescription Coverage: Yes This plan was formulated with input from patient, and team. All are in agreement with plan. Mark BELLO, RN Case Management [phone] * Plan of Care - Jo-Ann Chen RN - 09/19/2022 1:27 AM EDT OUTCOME EVALUATION NOTE: OUTCOME SUMMARY: Pt A/Ox4, VSS. Very little pain this shift. BS controlled per SEP. Pt tolerating renal/low residue diet with no N/V. BMx1 this shift. AUOP via bedside urinal. Possible d/c tomorrow. Pt rested betweencare. PLAN MOVING FORWARD: Encourage ambulation Plan for d/c INDIVIDUALIZED FALL PREVENTION INTERVENTIONS: Patient-specific fall risk factors per assessment: [current deficits]: Hospital environment, decreased lighting, lines. Assistance [level of assistance required for transfers and ambulation]: Independent Supervision [direct monitoring required during toileting and ADLs]: Eyes on Surveillance [continuous indirect monitoring]: Nurse knowledge exchange, purposeful rounding, environmental modifications (waste basket is out of the path and the IV tubing and cords are free from the floor), fall reduction program in place, lighting adjusted for task, bed in low position, wheels lo cked, side rails up (x2), nonskid socks worn OOB, no restraints, call light is within reach at all times, assistive device, bed/chair alarm, [place] ID band on Patient-specific fall prevention interventions for sensory deficits provided, if applicable: [X] N/A CARE PLAN GOAL OUTCOME EVALUATION: * Plan of Care - Margarita Smiley RN - 09/18/2022 11:50 AM EDT Problem: Fall Injury Risk Goal: Absence of Fall and Fall-Related Injury Outcome: Ongoing (Interventions Implemented as Appropriate) Problem: Pain Acute Goal: Acceptable Pain Control and Functional Ability Outcome: Ongoing (Interventions Implemented as Appropriate) Problem: Adjustment to Illness (Bowel Disease, Inflammatory) Goal: Optimal Adaptation to Chronic Illness Outcome: Ongoing (Interventions Implemented as Appropriate) Problem: Diarrhea (Bowel Disease, Inflammatory) Goal: Diarrhea Symptom Relief Outcome: Ongoing (Interventions Implemented as Appropriate) Problem: Infection (Bowel Disease, Inflammatory) Goal: Absence of Infection Signs and Symptoms Outcome: Ongoing (Interventions Implemented as Appropriate) Problem: Nutrition Impaired (Bowel Disease, Inflammatory) Goal: Optimal Nutrition Outcome: Ongoing (Interventions Implemented as Appropriate) Problem: Pain (Bowel Disease, Inflammatory) Goal: Acceptable Pain Control Outcome: Ongoing (Interventions Implemented as Appropriate) * Consult Note - Mirta Fernandez RN - 09/17/2022 3:30 PM EDT Images from the original note were not included. multicut line operator Note: Ostomy team was messaged by Dr. Perkins to request that pt get a stoma site due to worsening of symptoms, enough to warrant a CT Scan this afternoon. I reintroduced myself to pt and reviewed the two types of fecal ostomies. 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 I stoma sited pt, after assuming sitting and standing positions, in LUQ and RUQ. I darkened the site and coveredwith Tegaderm dressing. Proposed Ileostomy or Colostomy sites: * Care Management Discharge - Joseph Barba RN - 09/17/2022 9:20 AM EDT CARE MANAGEMENT FINAL DISCHARGE NOTE Chart reviewed, care reviewed with primary team and at interdisciplinary rounds. Patient is medically ready for discharge to home. Needs for Transition of Care: Plan for discharge is: Home w/o Services Agency Referrals & Follow-up Care: Transportation: family or friend will provide Wheelchair van/Ambulance? No Functional status prior to admission: Independent Home Environment: Others in the home: spouse, pet(s). Current Living Arrangements: home/apartment/condo. Accessibility Concerns:4 stairs to enter and livees on one level. Current Functional Ability: Assistive Person DME used at home: none DME Needed at Discharge: Patient is insured through: Primary Insurance: [employer] MEDICARE Payor: [employer]ARE / Plan: [employer] MANAGED MEDICARE / Product Type: *No Product type* / Secondary Insurance: COMMERCIAL GENERIC Prescription Coverage: Yes This plan was formulated with input from patient, and team. All are in agreement with plan. Mark BELLO, RN CM Case Management [phone] * Consult Note - Mirta Fernandez RN - 09/16/2022 2:00 PM EDT multicut line operator Note: Stopped by at the request of the ACS team to stoma site and educate patient on a colostomy and ileostomy. Pt was not interested in learning about the anatomy involved, however he had specific questions that he wanted to discuss, so we focused on those. Pt wanted to know exactly whata colostomy was and how much stool would come out with each push. I explained how a colostomy was made from the large intestine and that there is no sphincter, so the stool comes out unpredictably into an ostomy appliance. I showed him an ostomy appliance and explained how they work and how to openand close them. He wanted to know how much poop a pouch holds and I explained that the pouches should get emptied when they have one cup or less of stool. Pt asked if it was okay to go out and eat with an ostomy and I told him that it was. I asked pt about siting him for a stoma and he said he thinks the surgeon could choose one during surgery. I explained why this would be challenging as he would not be wearing his pants or sitting up when they were operating on him. Pt feels optimistic that he will not need surgery on this admission. Will follow up with the ACS team to let them know. * Plan of Care - Gurdeep Byrd RN - 09/16/2022 7:44 AM EDT OUTCOME EVALUATION NOTE: OUTCOME SUMMARY: Received report from Kina Rn @ 5am Pt aox4, VSS on RA LLQ tender voiding adequately, continue to monitor PLAN MOVING FORWARD: Maintain safety -Monitor pain -Encourage ambulation -IV ABX CPG GOAL OUTCOME EVALUATION: ongoing * Initial Assessments - Venus Jameson RN - 09/15/2022 3:12 PM EDT Office of Care Management Initial Assessment Venus Jameson RN reviewed record and discussed patient with Care Team. Source of Information: Team, bedside nurse, medical record, and Patient Introduced self/reviewed role; services accepted. Reason for Hospitalization: abdominal pain Covid Vaccination Status: 1st, 2nd & booster Last COVID test: Lab Results Component Value Date COVID19 Not Detected 05/07/2020 Past medical History: Past Medical History: Diagnosis Date ??? RAY [...] 2 diabetes mellitus ??? Weight increase 08/12/2016 Hospitalizations Within the Past 30 Days: no previous admission in last 30 days Current Decision-Making Capacity: Self Advance Care Planning: Attempt Cardiopulmonary Resuscitation - Inpatient Received -Advanced Directive: Yes, on file Who is your DPOA-HC?: Spouse Current Coping/Education/Information Needs: good Current Functional Ability: Assistive Person Functional Status Prior to Admission: Independent Prior ADLs & IADLs: Independent with all ADLs & IADLs Home Environment: Others in the home: spouse, pet(s). Current Living Arrangements: home/apartment/condo. Accessibility Concerns:4 stairs to enter and livees on one level. Resource / Environmental Concerns: Resource/Environmental Concerns: none Current DME: none Home Address confirmed as: [address] [facility] [facility] [id number] Social & Family Supports: Extended Emergency Contact Information Primary Emergency Contact: Mara Bolden Address: [address] [place] [id number] [address] Relation: Spouse Current Care Provided by: self Provides Primary Care For: no one, unable/limited ability to care for self Caregiver if needed: spouse Quality of Family relationships: helpful, involved Community Resources being provided currently: none Behavioral Health History: denies Substance Use/Abuse listed: Social History Tobacco Use Smoking Status Light Smoker ??? Types: Cigars Smokeless Tobacco Never Tobacco Comments cigars, one weekly 0 No problems reported 1-2 Low level 3-5 Moderate level 6-8 Substantial level 9- 10 Severe level 0 to 7 points: Low risk 8 to 15 points: Medium risk 16 to 19 points: High risk 20 to 40 points: Addiction likely Other Pertinent/Service Specific Information: n/a Health/Prescription Coverage: Primary Insurance: [employer] MEDICARE Payor: [employer] MED[employer]ARE / Plan: [employer] MANAGED MEDICARE / Product Type: *No Product type* / Secondary Insurance: COMMERCIAL GENERIC ONLY if patient has Medicare A&B - Does this patient have secondary insurance?: Yes ; Prescription Coverage: Yes Preferred Pharmacy: [id number] [place], [place] - [address] [place] [address] AT [facility] OF [address] [address] [facility] - [place], [place] - [address] [facility] [address] [facility] [address] [facility]IV[facility] [address] [facility] [address] [facility] [address] [facility] - [place], [place] - [address] [facility] [address] [facility] [address] [place] [address] [facility] [address] [facility], [place] - [address] [facility] [place] [address] Status: Patient is a : Yes Are you enrolled in the VA for your healthcare?: Yes Are you here under your VA benefit?: No Primary Care Provider confirmed: Urbano Jimenez DO [phone] Patient/Caregiver Goals of Treatment: feel better Potential Needs for Transition of Care: none Transportation: no concerns Transportation Anticipated: family or friend will provide Concerns to be Addressed: discharge planning Assessment: Patient is admitted to ACS service for diverticulitis with microperforation Plan: Patient will go home with no discharge needs when med ready for discharge. A member of the Care Management team will continue to monitor progress, follow for continuity of care and assist with transition of care planning. Venus Jameson RN, BSN Case Management * Consult Note - Mirta Fernandez RN - 09/15/2022 3:00 PM EDT multicut line operator Note: Stopped by to stoma site pt for possible ostomy and provide education. Pt was asleep and did not awaken when I said his name. Surgery is not scheduled at this time. Will plan to return and see pt again. * Consult Note - Tal Eagle MD - 09/15/2022 12:33 PM EDT Images from the original note were not included. TRANSPLANT CONSULT NOTE PATIENT: Cody Bolden : 1950 Date of Consultation: 09/15/2022 Admit Date: 09/14/2022 Reason for consult: Transplant care HPI: Mr. Cody Bolden is a very pleasant 72 year old male with PMhx ESRD s/p DDKT on 09/16/2015. He is on Mycophenolate and Tacrolimus at home for his immunosuppression. Cody had pain in the lower abdomen on 09/21-09/12 which was primarily located in the LLQ, -04/14, not radiating anywhere, aggravated by movements, accompanied with nausea but no vomiting. He states he may have had few episodes of diarrhea but that did not disturb him. 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 He was then sent over to [facility] and is being managed non-conservatively. Patient denies vomiting. He is lying flat on the bed with an elevation of 1 pillow. No respiratory distress or tachypnea is noted. No abdominal breathing is seen. He denies fever, chills, sore throat, hemetemesis, BRBPR or melena or any weight loss or weight gain. No LE edema. No chest pain. No shortness of breath. No cough. No cough. No runny nose or sinus congestion reported. No jaundice. Patient is NPO and is being managed conservatively at this time. He is on Zosyn and IVF 75 cc/hr. He has not had a bowel movement in 4 days now. Should be noted that his oral intake is very minimal since 4-5 days now. Intake and output is as charted: I/O last 3 completed shifts: In: - Out: 1520 [Urine:1520] I/O this shift: In: 911 [I.V.:911] Out: 900 [Urine:900] Creatinine is as follows: Past Medical History: Diagnosis Date ??? RAY [...] EXAM UP TO 1 HR PHY OR OTH HLTH CARE PROV N/A 05/10/2020 FLUOROSCOPY (WRVU 0.17) performed by Joseph Ang MD at [facility] OR ? ? PRG DAVEY REAL TIME IMG 2D W PRB IMG ACQUIS I&R N/A 07/15/2022 TRANSESOPHAGEAL ECHOCARDIOGRAM (WRVU 2.55) performed by Ruchi Park MD at [facility] OR ??? PRO ANASTOMOSIS, AV, ANY SITE Left 05/09/2015 AV FISTULA CREATION, DIRECT HEMODIALYSIS, ANY SITE, EG ASHWINI FISTULA UPPER EXTREMITY performed by Que Amaro MD at [facility] OR ? ? PRO ARTHROPLASTY KNEE CONDYLE & PLATEAU MEDIAL & LAT COMPARTMENTS Right 11/25/2017 TOTAL KNEE ARTHROPLASTY (WRVU 20.72) performed by Breezy Dale MD at [facility] OR ??? PRO CYSTOURETHROSCOPY, URETER CATHETER Left 06/17/2018 CYSTO, RETROGRADE, URETEROPYELOGRAPHY (WRVU 2.37) performed [facility] Edinson Grider III, [facility] ??? PRO LAMINEC/FACETECT/FORAMIN, LUMBAR 1 SEG N/A 05/10/2020 LAMINECTOMY, FACETECTOMY & FORAMINOTOMY,LUMBAR, ONE LEVEL (WRVU 15.37) performed by Joseph Ang MD at [facility] OR ??? PRO LAMINOTOMY, LUMBAR DISK, 1 INTRSP N/A 05/10/2020 LAMINOTOMY, DECOMPRESSION, FORAMINOTOMY, LUMBAR (WRVU 13.18) performed by Joseph Ang MD at [facility] OR ??? PRO MICROSURG TECHNIQUES, REQ OPER MICROSCOPE N/A 05/10/2020 MICROSCOPE USE (WRVU 3.46) performed by Joseph Ang MD at [facility] OR ??? PRO PERQ CLSR TCAT L ATR APNDGE W/ENDOCARDIAL IMPLNT N/A 05/08/2022 @PERQ TRANSCATH CLOSURE LEFT ATRIAL APPENDAGE W ENDOCARDIAL IMPLANT, INC RAD S&I (WRVU 14) performed by Tal Diana MD at [facility] CATH [facility]S ??? PRO REIMPLANT URETER, SINGLE URETER Left 05/20/2016 @URETERONEOCYSTOSTOMY ANASTOMOSIS OF SINGLE URETER TO BLADDER performed by Santosh Arredondo MD at [facility] OR ??? PRO REIMPLANT URETER, SINGLE URETER N/A 05/20/2016 @URETERONEOCYSTOSTOMY ANASTOMOSIS OF SINGLE URETER TO BLADDER performed by Que Amaro MD at [facility] OR ??? PRO TRANSPLANT, PREP CADAVER RENAL GRAFT N/A 09/16/2015 @PREPARATION CADAVERIC RENAL ALLOGRAFT performed by Franko Larkin MD at [facility] OR ??? PRO TRANSPLANTATION OF KIDNEY N/A 09/16/2015 @KIDNEY TRANSPLANT, WITHOUT RECIPIENT NEPHRECTOMY performed by Franko Larkin MD at [facility] OR ??? TISSUE TRANSFER kidney ??? US RENAL TRANSPLANT LEFT Left 01/31/2019 US Renal Transplant Left 01/31/2019 [facility] RAD ULTRASOUND ??? US RENAL TRANSPLANT LEFT Left 02/07/2019 US Renal Transplant Left 02/07/2019 [facility] RAD ULTRASOUND Current Facility-Administered Medications Medication Dose Route Frequency Provider Last Rate Last Admin ??? glucose (Glutose) 40% oral geL 15-30 g of glucose Buccal Q30 Min PRN Miguel Rogers MD Or ??? dextrose 10% infusion 250 mL Intravenous Q30 Min PRN Miguel Rogers MD Or ??? glucagon (Glucagen) (1 mg/mL) injection solution 1 mg 1 mg Intramuscular Q30 Min PRN Miguel Rogers MD ??? insulin lispro (HumaLOG;Admelog) (100 unit/mL) subcutaneous injection vial 1-4 Units 1-4 Units Subcutaneous Q4H [facility] Miguel Rogers MD ??? levothyroxine (Synthroid) tablet 137 mcg 137 mcg Oral QAM Miguel Rogers MD 137 mcg at 09/15/22 0613 ??? pantoprazole EC (Protonix) tablet 40 mg 40 mg Oral Daily Miguel Rogers MD 40 mg at 09/15/22952 ??? atorvastatin (Lipitor) tablet 40 mg 40 mg Oral QPM Miguel Rogers MD 40 mg at 09/14/222138 ??? calciTRIoL (Rocaltrol) capsule 0.5 mcg 0.5 mcg Oral Daily Miguel Rogers MD 0.5 mcg at 09/15/22952 ??? mycophenolate (Cellcept) capsule 250 mg 250 mg Oral BID Miguel Rogers MD 250 mg at 09/15/22952 ??? ascorbic acid (Vitamin C) (Vitamin C) tablet 500 mg 500 mg Oral TID Miguel Rogers MD 500 mg at 09/15/22953 ??? tacrolimus (Prograf) capsule 2 mg 2 mg Oral Daily Miguel Rogers MD ??? tacrolimus (Prograf) capsule 1 mg 1 mg Oral Nightly Miguel Rogers MD 1 mg at 09/14/222140 ??? metoprolol succinate XL (Toprol-XL) tablet 50 mg 50 mg Oral BID Miguel Rogers MD 50 mg at 09/15/22952 ??? amLODIPine (Norvasc) tablet 5 mg 5 mg Oral Nightly Miguel Rogers MD 5 mg at 09/14/222138 ??? aspirin EC tablet 81 mg 81 mg Oral Daily Miguel Rogers MD 81 mg at 09/15/22952 ??? hydrALAZINE (Apresoline) tablet 100 mg 100 mg Oral BID Miguel Rogers MD 100 mg at ??? sodium chloride 0.9 % (flush) (BD PosiFlush Normal Saline 0.9) flush 5 mL 5 mL Intravenous BID Miguel Rogers MD 5 mL at 09/15/22 0900 ??? sodium chloride 0.9 % (flush) (BD PosiFlush Normal Saline 0.9) flush 5-20 mL 5-20 mL Intravenous Q1 Min PRN Miguel Rogers MD ??? lidocaine (Xylocaine) 1% (10 mg/mL) injection 3 mg 0.3 mL Subcutaneous Once PRN Eva Rogers MD ??? senna-docusate (Pericolace) 8.6-50 mg per tablet 2 tablet 2 tablet Oral BID Miguel Rogers MD 2 tablet at 09/15/22 0954 ??? heparin (porcine) (5,000 units/1 mL) subcutaneous injection 5,000 Units 5,000 Units Subcutaneous Q8H JUAN R Miguel Rogers MD 5,000 Units at 09/15/22 0613 ??? bisacodyL (Dulcolax) suppository 10 mg 10 mg Rectal Daily PRN Miguel Rogers MD ??? melatonin tablet 6 mg 6 mg Oral Nightly PRN Miguel Rogers MD ??? polyethylene glycoL (Miralax) packet 17 g 17 g Oral Daily Miguel Rogers MD 17 g at 09/15/22 0952 ??? oxyCODONE (Roxicodone) tablet 5 mg 5 mg Oral Q4H PRN Miguel Rogers MD 5 mg at 09/14/22 2139 ??? piperacillin-tazobactam (Zosyn) 3.375 g vial attach to sodium chloride 0.9% 50 mL Mini-Bag Plus3.375 g Intravenous Q8H Miguel Rogers MD Stopped at 09/15/22 1013 ??? dextrose 5% and sodium chloride 0.45% with potassium chloride 20 mEq infusion 75 mL/hr Intravenous Continuous Miguel Rogers MD 75 mL/hr at 09/15/22 1048 75 mL/hr at 09/15/22 1048 ??? ondansetron (Zofran) tablet 4 mg 4 mg Oral Q8H PRN Miguel Rogers MD ??? tamsulosin (Flomax) capsule 0.4 mg 0.4 mg Oral Daily Miguel Rogers MD 0.4 mg at 09/15/22 0953 Allergies Allergen Reactions ??? [place] Family History Problem Relation Age of Onset ??? Chronic Obstructive Pulmonary Disease Mother ??? Arrhythmia Mother ??? Heart Disease Father Social History Socioeconomic History ??? Marital status: Spouse name: Not on file ??? Number of children: Not on file ??? Years of education: Not on file ??? Highest education level: Not on file Occupational History ??? Not on file Tobacco Use ??? Smoking status: Light Smoker Types: Cigars ??? Smokeless tobacco: Never ??? Tobacco comments: cigars, one weekly Vaping Use ??? Vaping Use: Never used Substance and Sexual Activity ??? Alcohol use: No ??? Drug use: Yes Frequency: 7.0 times per week Types: Marijuana ??? Sexual activity: Not on file Other Topics Concern ??? Not on file Social History Narrative ??? Not on file Social Determinants of Health Financial Resource Strain: Not on file Food Insecurity: Not on file Transportation Needs: Not on file Physical Activity: Not on file Housing Stability: Not on file ROS: The 10 point ROS is pertinently negative except the positives mentioned above. PE: Vitals Last value Range last 24 hrs Temperature Temp: 36.5 ??C (97.7 ??F) Temp: [36.4 ??C (97.5 ??F)-36.6 ??C (97.9 ??F)] Heart Rate Heart Rate: 63 Heart Rate: [61-73] Blood Pressure BP: 124/58 BP: (123-143)/(57-69) Art Line BP BP (Arterial Line): -- MAP (NBP): [80 mmHg-87 mmHg] Respiratory Rate Resp: 18 Resp: [17-18] SpO2 SpO2: 95 % SpO2: [93 %-95 %] Admit Weight 99.5 kg Hemodynamically stable, Not on pressors. General - Fair appearing . Appears stated age. HEENT - No icterus or conjunctival injection. Moist mucous membranes. No oropharyngeal lesions or exudates. Neck - Supple. No lymphadenopathy. Respiratory - Lungs are clear to auscultation bilaterally. Cardiovascular - Murmurs/S1 and S2 are present. Regular rate and rhythm. Abdomen - Bowel sounds hypoactive. Soft, nontender. No ascites. Extremities - Musculoskeletal - No joint tenderness or swelling. Skin/Integument - No rashes, ecchymoses, or petechiae. Psychiatric - Appropriate mood and affect. Neurological - No focal deficits. LABS: Recent Labs 09/15/22 0011 WBC 8.0 HGB 13.2* HCT 38.2* PLATELET 217 Recent Labs 09/15/22 0011 NA 140 K 3.7 CL 106 CO2 26 BUN 9* CREATININE 1.28 Recent Labs 09/15/22 0011 CALCIUM 8.5 MAGNESIUM 0.78 PHOS 2.3* No results for input(s): PT, PTT, FIBRINOGEN, DDIMER in the last 168 hours. Invalid input(s): THROMBIN TIME No results for input(s): INR in the last 168 hours. Recent Labs 09/15/22 0011 AST 11 ALT 10 ALKPHOS 67 BILITOT 2.1* BILIDIR 0.2 No results for input(s): CK, TROPONINT in the last 168 hours. No results for input(s): LDH, URICACID in the last 168 hours. Recent Labs 01/30/22 2145 TSH 3.44 Recent Labs 03/18/22 1058 HA1C 6.6* Lab Results Component Value Date CHLPL 71 05/23/2022 HDL 36 03/18/2022 CHOLHDL 2.2 03/18/2022 TRIG 115 03/18/2022 LDLCHOL 22 03/18/2022 Imaging/Diagnostics: No results found for this visit on 09/14/22. Assessment and Recommendations: A 72 year old male with PMHx ESRD on HD for 9 months, followed by DDTx 09/16/2015, chronic atrial fibrillation s/p watchman device, HTN, HLD, T2DM, hx ASCVD s/p PCI, tachy-sakina syndrome s/p PPM, Afib s/p Watchman (05/2022) (not on AC d/t hx intracranial bleed), hx basal ganglia hemorrhage (02/2021), hx embolic stroke (05/2014), hypothyroidism, hx uncomplicated diverticulitis, BPH, and ESRD s/p DDKT (09/16/2015) c/b transplanted ureter stricture and revision with Urology (05/2016). He presents to [facility] on 09/14/2022 as a transfer from OSH for diverticulitis with micr operforation. - Check his Tacrolimus level today prior to the evening dose (if the morning dose has been given). The tac level should be checked around 10-11 hours after the morning dose just before the night dose, or just before the morning dose if the night dose has been given. This would give us fair idea of his dosing. - Continue Mycophenolate. - Maintain Hemoglobin > 10 g/dL, Albumin 2.5 g/dL, MAP > 70 mmHg, HR > 65/min and avoid intravascular depletion for the functioning of the graft. - Avoid nephrotoxins. No NSAIDs. - All medications must be renally dosed. - Continue calcitriol as dosed. His last PTH and Vitamin D were checked in 03/2022 and were within normal levels. - Please page if there is a new or acute change in patient's condition. Consult service will continue to follow patient. [facility][id number] I reviewed all of the above findings and assessment of Dr. White, edited the above note to reflect my assessment and examination and formulated the recommendations which accurately reflect mine. 25 of35 Min. in direct face to face funeral prearrangement counselor. documented in this encounter Plan of Treatment Upcoming Encounters Date Type Department Care Team (Late st Contact Info) Description 04/15/2024 10:00 AM EDT Hospital Encounter Non-[place] [address] Arrived Scheduled Referrals Name Type Priority Associated Diagnoses Order Schedule Referral to Colorectal Surgery Outpatient Referral Routine Diverticulitis Ordered: 09/19/2022 documented as of this encounter Goals Goal [...] Procedure Name Priority Date/Time Associated Diagnosis Comments POCT GLUCOSE Routine 09/19/2022 11:16 AM EDT POCT GLUCOSE Routine 09/19/2022 7:58 AM EDT HC FK-506 (TACROLIMUS) Routine 09/19/2022 7:50 AM EDT POCT GLUCOSE Routine 09/19/2022 4:04 AM EDT HEMOGRAM Routine 09/19/2022 12:51 AM EDT DIFFERENTIAL, AUTOMATED Routine 09/19/2022 12:51 AM EDT HC CBC,PLT & AUTO DIFF Routine 09/19/2022 12:51 AM EDT HC PHOSPHORUS, SERUM Routine 09/19/2022 12:51 AM EDT HC MAGNESIUM, SERUM Routine 09/19/2022 1 2:51 AM EDT BASIC METABOLIC PANEL Routine 09/19/2022 12:51 AM EDT POCT GLUCOSE Routine 09/18/2022 11:48 PM EDT POCT GLUCOSE Routine 09/18/2022 7:42 PM EDT POCT GLUCOSE Routine 09/18/2022 4:20 PM EDT POCT GLUCOSE Routine 09/18/2022 12:14 PM EDT POCT GLUCOSE Routine 09/18/2022 7:43 AM EDT POCT GLUCOSE Routine 09/18/2022 3:44 AM EDT CRP, ACUTE INFLAMMATION Routine 09/18/2022 1:05 AM EDT HEMOGRAM Routine 09/18/2022 1:05 AM EDT DIFFERENTIAL, AUTOMATED Routine 09/18/2022 1:05 AM EDT HC CBC,PLT & AUTO DIFF Routine 09/18/2022 1:05 AM EDT HC PHOSPHORUS, SERUM Routine 09/18/2022 1:05 AM EDT HC MAGNESIUM, SERUM Routine 09/18/2022 1 :05 AM EDT BASIC METABOLIC PANEL Routine 09/18/2022 1:05 AM EDT POCT GLUCOSE Routine 09/17/2022 11:18 PM EDT POCT GLUCOSE Routine 09/17/2022 7:[address] ABDOMEN AND PELVIS W CONTRAST STAT 09/17/2022 5:34 PM EDT POCT GLUCOSE Routine 09/17/2022 3:58 PM EDT POCT GLUCOSE Routine 09/17/2022 11:37 AM EDT POCT GLUCOSE Routine 09/17/2022 7:30 AM EDT POCT GLUCOSE Routine 09/17/2022 3:29 AM EDT HC C-REACTIVE PROTEIN Routine 09/17/2022 12:51 AM EDT HEMOGRAM Routine 09/17/2022 12:51 AM EDT DIFFERENTIAL, AUTOMATED Routine 09/17/2022 12:51 AM EDT HC CBC,PLT & AUTO DIFF Routine 09/17/2022 12:51 AM EDT HC PHOSPHORUS, SERUM Routine 09/17/2022 12:51 AM EDT HC MAGNESIUM, SERUM Routine 09/17/2022 1 2:51 AM EDT BASIC METABOLIC PANEL Routine 09/17/2022 12:51 AM EDT POCT GLUCOSE Routine 09/16/2022 11:53 PM EDT POCT GLUCOSE Routine 09/16/2022 7:31 PM EDT POCT GLUCOSE Routine 09/16/2022 3:33 PM EDT POCT GLUCOSE Routine 09/16/2022 11:42 AM EDT POCT GLUCOSE Routine 09/16/2022 7:27 AM EDT POCT GLUCOSE Routine 09/16/2022 3:48 AM EDT CRP, ACUTE INFLAMMATION Routine 09/16/2022 12:49 AM EDT HEMOGRAM Routine 09/16/2022 12:49 AM EDT DIFFERENTIAL, AUTOMATED Routine 09/16/2022 12:49 AM EDT HC CBC,PLT & AUTO DIFF Routine 09/16/2022 12:49 AM EDT HC PHOSPHORUS, SERUM Routine 09/16/2022 12:49 AM EDT HC MAGNESIUM, SERUM Routine 09/16/2022 1 2:49 AM EDT BASIC METABOLIC PANEL Routine 09/16/2022 12:49 AM EDT POCT GLUCOSE Routine 09/16/2022 12:08 AM EDT POCT GLUCOSE Routine 09/15/2022 9:04 PM EDT POCT GLUCOSE Routine 09/15/2022 3:51 PM EDT POCT GLUCOSE Routine 09/15/2022 12:00 PM EDT HC VENIPUNCTURE Timed 09/15/2022 11:38 AM EDT POCT GLUCOSE Routine 09/15/2022 7:42 AM EDT POCT GLUCOSE Routine 09/15/2022 5:56 AM EDT POCT GLUCOSE Routine 09/15/2022 4:50 AM EDT CRP, ACUTE INFLAMMATION STAT 09/15/2022 12:11 AM EDT HEMOGRAM STAT 09/15/2022 12:11 AM EDT DIFFERENTIAL, AUTOMATED STAT 09/15/2022 12:11 AM EDT HC CBC,PLT & AUTO DIFF STAT 09/15/2022 12:11 AM EDT HC PHOSPHORUS, SERUM STAT 09/15/2022 12:11 AM EDT HC MAGNESIUM, SERUM STAT 09/15/2022 1 2:11 AM EDT HEPATIC FUNCTION PANEL STAT 09/15/2022 12:11 AM EDT BASIC METABOLIC PANEL STAT 09/15/2022 12:11 AM EDT POCT GLUCOSE Routine 09/14/2022 9:51 PM EDT documented in this encounter Results * POCT Glucose (09/19/2022 11:16 AM EDT) Glucose, POC 189 65 - 199 mg/dL [facility] Comment: Supplemental ranges: <140 mg/dL before meals <180 mg/dL all other times of the day Blood 09/19/2022 11:1 6 AM EDT 09/19/2022 11:16 AM EDT Dyan Sears MD POINT OF CARE TEST O RDERABLES [facility] [place] [address] * POCT Glucose (09/19/2022 7:58 AM EDT) Glucose, POC 127 65 - 199 mg/dL [facility] Comment: Supplemental ranges: <140 mg/dL before meals <180 mg/dL all other times of the day Blood 09/19/2022 7:58 AM EDT 09/19/2022 7:58 AM EDT Dyan Sears MD POINT OF CARE TEST O RDERABG Performing Organization Address [facility] Co de Phone Number [facility] [place] [address] * Tacrolimus level (09/19/2022 7:50 AM EDT) Tacrolimus 11.3 ng/mL [facility] Comment: Trough therapeutic range is 3-15 ng/mL, depending upon transplant type, time since transplantation, use of other 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 drugs, comorbidities, and test method used. Tacrolimus concentration determined using the [employer] Tacrolimus electrochemiluminescence competitive immunoassay. Results from different samples types and methods are not interchangeable. Blood 09/19/2022 7:50 AM EDT 09/19/2022 7:57 AM EDT Narrative Resulting Agency Comment Spec In Lab Tal Eagle MD CHEMISTRY ORDERAB LES Performing Organization Address [facility] Co de Phone Number [facility] [place] [address] * POCT Glucose (09/19/2022 4:04 AM EDT) Pathologist [facility] Glucose, POC 138 65 - 199 mg/dL [facility] Comment: Supplemental ranges: <140 mg/dL before meals <180 mg/dL all other times of the day Blood 09/19/2022 4:04 AM EDT 09/19/2022 4:04 AM EDT Dyan Sears MD POINT OF CARE TEST O RDERABLES Performing Organization Address [facility] Co de Phone Number [facility] [place] [address] * (ABNORMAL) Differential, Automated (09/19/2022 12:51 AM EDT) Neutrophil % 68.4 % [facility] Neutrophil Absolute 5.95 1.70 - 6.10 x10(3)/mc L [facility] Lymph % 16.4 % [facility] Lymphocytes Abs 1.4 0.9 - 3.2 x10(3)/ L [facility] Monocyte % 8.5 % [facility] Monocyte Abs 0.7 0.3 - 0.9 x10(3)/ L [facility] Eos % 6.2 % [facility] Eosinophils Abs 0.5(H) 0.0 - 0.4 x10(3)/ L [facility] Basophil % 0.3 % [facility] Baso Absolute 0.0 0.0 - 0.1 x10(3)/ L [facility] Immature Gran % 0.20 % [facility] Comment: Immature granulocytes(IG's)percentage and absolute count will include metamyelocytes, myelocytes, and promyelocytes. Blood smears from CBCs yielding IG's will be scanned manually for concordance. If this scan disagrees with the automated IG or if promyelocytes are noted, a manual differential will be performed. Immature Gran Absolute 0.02 0.00 - 0.04 x10(3)/ L [facility] Blood 09/19/2022 12:5 1 AM EDT 09/19/2022 1:03 AM EDT Narrative Resulting Agency Comment Spec In Lab Miguel Rogers MD HEMATOLOGY ORDERABLE S [facility] [place] [address] * (ABNORMAL) Hemogram (09/19/2022 12:51 AM EDT) White Blood Cell 8.7 4.0 - 9.5 x10(3)/mc L [facility] Red Blood Cell 4.36(L) 4.58 - 5.54 x10(6)/ L [facility] Hemoglobin 13.1(L) 13.7 - 16.5 g/dL [facility] Hematocrit 38.2(L) 40.5 - 48.5 % [facility] Mean Cell Volume 87.6 82.9 - 93.1 fL [facility] Mean Cell Hemoglobin 30.0 27.5 - 32.1 pg [facility] Mean Cell Hemoglobin Concentration 34.3 32.0 - 35.7 g/dL [facility] Platelet 247 145 - 357 x10(3)/mc L [facility] RDW Standard Deviation 41.2 36.0 - 45.0 fL [facility] RDW coefficient of variation 12.8 11.4 - 13.8 % [facility] Mean Platelet Volume 9.3 7.6 - 12.9 fL [facility] NRBC% auto 0.0 % [facility] NRBC Absolute 0.000 0.000 - 0.000 x10(3)/mc L [facility] Blood 09/19/2022 12:5 1 AM EDT 09/19/2022 1:03 AM EDT Narrative Resulting Agency Comment Spec In Lab Miguel Rogers MD HEMATOLOGY ORDERABLE S Performing Organization Address [facility] de Phone Number [facility] [place] [address] * Phosphorus (09/19/2022 12:51 AM EDT) Phosphorus 2.6 2.5 - 4.5 mg/dL [facility] Blood 09/19/2022 12:5 1 AM EDT 09/19/2022 1:03 AM EDT Narrative Resulting Agency Comment Spec In Lab Asa Skaggs MD CHEMISTRY ORDERABLES Performing Organization Address [facility] [place] Co de Phone Number [facility] [place] [address] * (ABNORMAL) Magnesium (09/19/2022 12:51 AM EDT) Magnesium 0.62(L) 0.69 - 1.07 mmol/L [facility] Blood 09/19/2022 12:5 1 AM EDT 09/19/2022 1:03 AM EDT Narrative Resulting Agency Comment Spec In Lab Asa Skaggs MD CHEMISTRY ORDERABLES Performing Organization Address [facility]/ZIP Co de Phone Number [facility] [place] [address] * (ABNORMAL) Basic Metabolic Panel (non-fasting) (09/19/2022 12:51 AM EDT) Glucose 143 65 - 199 mg/dL [facility] Comment:Diabetes: >=200 mg/d L plus symptoms Blood Urea Nitrogen 13 10 - 20 mg/dL [facility] Creatinine 1.25 0.80 - 1.50 mg/dL [facility] Sodium 140 135 - 145 mmol/L [facility] Potassium 3.2(L) 3.5 - 5.0 mmol/L [facility] Comment: Please note: ??Patients with WBC >100,000 may have falsely elevated Potassium levels. ??For accurate Potassium quantification in these patients send serum separator tube (gold top) for subsequent determinations. ??Contact the Clinical Chemistry Laboratory if there are any questions. Chloride 104 98 - 107 mmol/L [facility] Carbon Dioxide 26 22 - 31 mmol/L [facility] Anion Gap 10 5 - 15 mmol/L [facility] Calcium 9.0 8.5 - 10.5 mg/dL [facility] Est Glomerular Filtration Rate 60 >=60 mL/min/1. 73 m?? [facility] Comment: This patient's estimated GFR was [...] and symptoms in addition to eGFR. Blood 09/19/2022 12:5 1 AM EDT 09/19/2022 1:03 AM EDT Narrative Resulting Agency Comment Spec In Lab Asa Skaggs MD CHEMISTRY ORDERABLES Performing Organization Address [facility]/ZIP Co de Phone Number [facility] [place] [address] * POCT Glucose (09/18/2022 11:48 PM EDT) Glucose, POC 143 65 - 199 mg/dL [facility] Comment: Supplemental ranges: <140 mg/dL before meals <180 mg/dL all other times of the day Blood 09/18/2022 11:4 8 PM EDT 09/18/2022 11:48 PM EDT Dyan Sears MD POINT OF CARE TEST O TED [facility] [place] [address] * POCT Glucose (09/18/2022 7:42 PM EDT) Glucose, POC 180 65 - 199 mg/dL [facility] Comment: Supplemental ranges: <140 mg/dL before meals <180 mg/dL all other times of the day Blood 09/18/2022 7:42 PM EDT 09/18/2022 7:42 PM EDT Dyna Sears MD POINT OF CARE TEST O TED [facility] [place] [address] * POCT Glucose (09/18/2022 4:20 PM EDT) Glucose, POC 188 65 - 199 mg/dL [facility] Comment: Supplemental ranges: <140 mg/dL before meals <180 mg/dL all other times of the day Blood 09/18/2022 4:20 PM EDT 09/18/2022 4:20 PM EDT Dyan Sears MD POINT OF CARE TEST O TED [facility] [place] [address] * POCT Glucose (09/18/2022 12:14 PM EDT) Glucose, POC 183 65 - 199 mg/dL [facility] Comment: Supplemental ranges: <140 mg/dL before meals <180 mg/dL all other times of the day Blood 09/18/2022 12:1 4 PM EDT 09/18/2022 12:14 PM EDT Dyan Sears MD POINT OF CARE TEST O TED Performing Organization Address City/[facility] Co de Phone Number [facility] [place] [address] * POCT Glucose (09/18/2022 7:43 AM EDT) Glucose, POC 128 65 - 199 mg/dL [facility] Comment: Supplemental ranges: <140 mg/dL before meals <180 mg/dL all other times of the day Blood 09/18/2022 7:43 AM EDT 09/18/2022 7:43 AM EDT Dyan Sears MD POINT OF CARE TEST O TED Performing Organization Address [facility] Co de Phone Number [facility] [place] [address] * POCT Glucose (09/18/2022 3:44 AM EDT) Glucose, POC 119 65 - 199 mg/dL [facility] Comment: Supplemental ranges: <140 mg/dL before meals <180 mg/dL all other times of the day Blood 09/18/2022 3:44 AM EDT 09/18/2022 3:44 AM EDT Dyan Sears MD POINT OF CARE TEST O TED Performing Organization Address [facility] Co de Phone Number [facility] [place] [address] * (ABNORMAL) CRP, acute inflammation (09/18/2022 1:05 AM EDT) C-Reactive Protein 63.8(H) <=4.9 mg/L [facility] Blood Venous Draw / Unknown 09/18/2022 1:05 AM EDT 09/18/2022 1:22 AM EDT Narrative Resulting Agency Comment Spec In Lab Janet Perkins MD [place] [address] * (ABNORMAL) Differential, Automated (09/18/2022 1:05 AM EDT) Neutrophil % 74.0 % [facility] Neutrophil Absolute 6.72(H) 1.70 - 6.10 x10(3)/mc L [facility] Lymph % 10.2 % [facility] Lymphocytes Abs 0.9 0.9 - 3.2 x10(3)/mc L [facility] Monocyte % 9.7 % [facility] Monocyte Abs 0.9 0.3 - 0.9 x10(3)/mc L [facility] Eos % 5.4 % [facility] Eosinophils Abs 0.5(H) 0.0 - 0.4 x10(3)/mc L [facility] Basophil % 0.3 % [facility] Baso Absolute 0.0 0.0 - 0.1 x10(3)/mc L [facility] Immature Gran % 0.40 % [facility] Comment: Immature granulocytes(IG's)percentage and absolute count will include metamyelocytes, myelocytes, and promyelocytes. Blood smears from CBCs yielding IG's will be scanned manually for concordance. If this scan disagrees with the automated IG or if promyelocytes are noted, a manual differential will be performed. Immature Gran Absolute 0.04 0.00 - 0.04 x10(3)/mc L [facility] Blood 09/18/2022 1:05 AM EDT 09/18/2022 1:17 AM EDT Narrative Resulting Agency Comment Spec In Lab Miguel Rogers MD HEMATOLOGY ORDERABLE S Performing Organization Address City/[facility]/[place] [address] * (ABNORMAL) Hemogram (09/18/2022 1:05 AM EDT) White Blood Cell 9.1 4.0 - 9.5 x10(3)/mc L [facility] Red Blood Cell 4.48(L) 4.58 - 5.54 x10(6)/mc L [facility] Hemoglobin 13.4(L) 13.7 - 16.5 g/dL [facility] Hematocrit 38.0(L) 40.5 - 48.5 % [facility] Mean Cell Volume 84.8 82.9 - 93.1 fL [facility] Mean Cell Hemoglobin 29.9 27.5 - 32.1 pg [facility] Mean Cell Hemoglobin Concentration 35.3 32.0 - 35.7 g/dL [facility] Platelet 261 145 - 357 x10(3)/mc L [facility] RDW Standard Deviation 38.8 36.0 - 45.0 fL [facility] RDW coefficient of variation 12.8 11.4 - 13.8 % [facility] Mean Platelet Volume 9.3 7.6 - 12.9 fL [facility] NRBC% auto 0.0 % [facility] NRBC Absolute 0.000 0.000 - 0.000 x10(3)/mc L [facility] Blood 09/18/2022 1:05 AM EDT 09/18/2022 1:17 AM EDT Narrative Resulting Agency Comment Spec In Lab Miguel Rogers MD HEMATOLOGY ORDERABLE S Performing Organization Address City/[facility]/ZIP Co de Phone Number [facility] [place] [address] * (ABNORMAL) Phosphorus (09/18/2022 1:05 AM EDT) Phosphorus 2.1(L) 2.5 - 4.5 mg/dL [facility] Blood 09/18/2022 1:05 AM EDT 09/18/2022 1:17 AM EDT Narrative Resulting Agency Comment Spec In Lab Asa Skaggs MD CHEMISTRY ORDERABLES [facility] [place] [address] * (ABNORMAL) Magnesium (09/18/2022 1:05 AM EDT) Magnesium 0.47(L) 0.69 - 1.07 mmol/L [facility] Blood 09/18/2022 1:05 AM EDT 09/18/2022 1:17 AM EDT Narrative Resulting Agency Comment Spec In Lab Asa Skaggs MD CHEMISTRY ORDERABLES Performing Organization Address City/[facility]/ZIP Co de Phone Number [facility] [place] [address] * (ABNORMAL) Basic Metabolic Panel (non-fasting) (09/18/2022 1:05 AM EDT) Glucose 119 65 - 199 mg/dL [facility] Comment:Diabetes: >=200 mg/d L plus symptoms Blood Urea Nitrogen 12 10 - 20 mg/dL [facility] Creatinine 1.13 0.80 - 1.50 mg/dL [facility] Sodium 142 135 - 145 mmol/L [facility] Potassium 3.3(L) 3.5 - 5.0 mmol/L [facility] Comment: Please note: ??Patients with WBC >100,000 may have falsely elevated Potassium levels. ??For accurate Potassium quantification in these patients send serum separator tube (gold top) for subsequent determinations. ??Contact the Clinical Chemistry Laboratory if there are any questions. Chloride 104 98 - 107 mmol/L [facility] Carbon Dioxide 25 22 - 31 mmol/L [facility] Anion Gap 13 5 - 15 mmol/L [facility] Calcium 8.9 8.5 - 10.5 mg/dL [facility] Est Glomerular Filtration Rate 68 >=60 mL/min/1. 73 m?? [facility] Comment: This patient's estimated GFR was [...] and symptoms in addition to eGFR. Blood 09/18/2022 1:05 AM EDT 09/18/2022 1:17 AM EDT Narrative Resulting Agency Comment Spec In Lab Asa Skaggs MD CHEMISTRY ORDERABLES Performing Organization Address [facility] Co de Phone Number [facility] [place] [address] * POCT Glucose (09/17/2022 11:18 PM EDT) Glucose, POC 127 65 - 199 mg/dL [facility] Comment: Supplemental ranges: <140 mg/dL before meals <180 mg/dL all other times of the day Blood 09/17/2022 11:1 8 PM EDT 09/17/2022 11:18 PM EDT Dyan Sears MD POINT OF CARE TEST O RDERABLES Performing Organization Address [facility] Co de Phone Number [facility] [place] [address] * (ABNORMAL) POCT Glucose (09/17/2022 7:10 PM EDT) Glucose, POC 201(H) 65 - 199 mg/dL [facility] Comment: Supplemental ranges: <140 mg/dL before meals <180 mg/dL all other times of the day Blood 09/17/2022 7:10 PM EDT 09/17/2022 7:10 PM EDT Dyan Sears MD POINT OF CARE TEST O RDERABLES Performing Organization Address [facility] Co de Phone Number [facility] [place] [address] * CT Abdomen & Pelvis w Contrast (09/17/2022 5:34 PM EDT) Anatomical Region Laterality Modality Abdomen, Pelvis Computed Tomogra phy Impressions 09/17/2022 6:08 PM EDT 1. ??Acute diverticulitis. 2. ??Cholelithiasis. 3. ??Trace pleural collections. Thank you for letting us participate in the care of this patient. ??If you are a health care provider and have any questions regarding this report, please contact the number below. ??For patients who have questions please contact the health palliative care specialist that requested your imaging first. ? Narrative 09/17/2022 6:08 PM EDT EXAMINATION: CT ABDOMEN AND PELVIS W CONTRAST CLINICAL HISTORY: Abdominal abscess/infection suspected 72M hx of renal transplant, known diverticulitis with increased abdominal pain, stable CRP. Eval for new abscess, perforation, other etiology. IV contrast ok, bicarb gtt per nephro ordered. TECHNIQUE: Helical CT of the abdomen and pelvis was performed following the intravenous administration of contrast. Administered 120.0 ml of OMNIPAQUE 350.00 mg/ml.. COMPARISON: CT abdomen pelvis 02/07/2018 FINDINGS: Short segment of sigmoid colonic bowel wall thickening with adjacent fat stranding. Focal more proximal region of focal bowel wall thickening and adjacent fat stranding. Numerous sigmoid diverticula. No free air. No pneumatosis. No evidence of abscess. Bowel is nondilated. Appendix is normal. The liver, spleen, adrenal glands and pancreas are unchanged. Similar atrophic kidneys. Unchanged left-sided ureteral stone. Unchanged left pelvic transplant kidney. Bladder is unremarkable. Abdominal aorta is normal in caliber. Similar molly mesentery. Review of bone windows is unremarkable. Trace bilateral pleural collections. Procedure Note Bren Garnett MD - 09/17/2022 EXAMINATION: CT ABDOMEN AND PELVIS W CONTRAST CLINICAL HISTORY: Abdominal abscess/infection suspected 72M hx of renal transplant, known diverticulitis with increased abdominalpain, stable CRP. Eval for new abscess, perforation, other etiology. IV contrastok, bicarb gtt per nephro ordered. TECHNIQUE: Helical CT of the abdomen and pelvis was performed followingthe intravenous administration of contrast. Administered 120.0 ml ofOMNIPAQUE 350.00 mg/ml.. COMPARISON: CT abdomen pelvis 02/07/2018 FINDINGS: Short segment of sigmoid colonic bowel wall thickening with adjacent fat stranding. Focal more proximal region of focal bowel wall thickening and adjacent fat stranding. Numerous sigmoid diverticula. No free air. No pneumatosis. No evidence of abscess. Bowel is nondilated. Appendix is normal. The liver, spleen, adrenal glands and pancreas are unchanged. Similaratrophic kidneys. Unchanged left-sided ureteral stone. Unchanged left pelvictransplant kidney. Bladder is unremarkable. Abdominal aorta is normal in caliber. Similar molly mesentery. Review of bone windows is unremarkable. Trace bilateral pleural collections. IMPRESSION 1. Acute diverticulitis. 2. Cholelithiasis. 3. Trace pleural collections. Thank you for letting us participate in the care of this patient. If youare a health care provider and have any questions regarding this report,please contact the number below. For patients who have questions please contactthe health palliative care specialist that requested your imaging first. Dyan Sears MD IMG CT ORDERABLES * POCT Glucose (09/17/2022 3:58 PM EDT) Glucose, POC 171 65 - 199 mg/dL [facility] Comment: Supplemental ranges: <140 mg/dL before meals <180 mg/dL all other times of the day Blood 09/17/2022 3:58 PM EDT 09/17/2022 3:58 PM EDT Dyan Sears MD POINT OF CARE TEST O RDERABLES [facility] [place] [address] * POCT Glucose (09/17/2022 11:37 AM EDT) Glucose, POC 175 65 - 199 mg/dL [facility] Comment: Supplemental ranges: <140 mg/dL before meals <180 mg/dL all other times of the day Blood 09/17/2022 11:3 7 AM EDT 09/17/2022 11:37 AM EDT Dyan Sears MD POINT OF CARE TEST O RDERABG [facility] [place] [address] * POCT Glucose (09/17/2022 7:30 AM EDT) Glucose, POC 139 65 - 199 mg/dL [facility] Comment: Supplemental ranges: <140 mg/dL before meals <180 mg/dL all other times of the day Blood 09/17/2022 7:30 AM EDT 09/17/2022 7:30 AM EDT Dyan Sears MD POINT OF CARE TEST O RDERABLES [facility] [place] [address] * POCT Glucose (09/17/2022 3:29 AM EDT) Glucose, POC 151 65 - 199 mg/dL [facility] Comment: Supplemental ranges: <140 mg/dL before meals <180 mg/dL all other times of the day Blood 09/17/2022 3:29 AM EDT 09/17/2022 3:29 AM EDT Dyan Sears MD POINT OF CARE TEST O RDERABLES [facility] [place] [address] * Differential, Automated (09/17/2022 12:51 AM EDT) Neutrophil % 68.9 % [facility] Neutrophil Absolute 5.82 1.70 - 6.10 x10(3)/[facility] Lymph % 16.7 % [facility] Lymphocytes Abs 1.4 0.9 - 3.2 x10(3)/[facility] Monocyte % 9.2 % [facility] Monocyte Abs 0.8 0.3 - 0.9 x10(3)/[facility] Eos % 4.1 % [facility] Eosinophils Abs 0.4 0.0 - 0.4 x10(3)/[facility] Basophil % 0.7 % [facility] Baso Absolute 0.1 0.0 - 0.1 x10(3)/[facility] Immature Gran % 0.40 % [facility] Comment: Immature granulocytes(IG's)percentage and absolute count will include metamyelocytes, myelocytes, and promyelocytes. Blood smears from CBCs yielding IG's will be scanned manually for concordance. If this scan disagrees with the automated IG or if promyelocytes are noted, a manual differential will be performed. Immature Gran Absolute 0.03 0.00 - 0.04 x10(3)/[facility] Blood 09/17/2022 12:5 1 AM EDT 09/17/2022 12:57 AM EDT Narrative Resulting Agency Comment Spec In Lab Miguel Rogers MD HEMATOLOGY ORDERABLE S Performing Organization Address City/State/[facility] Co de Phone Number [facility] [place] [address] * (ABNORMAL) Hemogram (09/17/2022 12:51 AM EDT) White Blood Cell 8.4 4.0 - 9.5 x10(3)/mc L [facility] Red Blood Cell 4.29(L) 4.58 - 5.54 x10(6)/mc L [facility] Hemoglobin 12.8(L) 13.7 - 16.5 g/dL [facility] Hematocrit 37.1(L) 40.5 - 48.5 % [facility] Mean Cell Volume 86.5 82.9 - 93.1 fL [facility] Mean Cell Hemoglobin 29.8 27.5 - 32.1 pg [facility] Mean Cell Hemoglobin Concentration 34.5 32.0 - 35.7 g/dL [facility] Platelet 229 145 - 357 x10(3)/mc L [facility] RDW Standard Deviation 40.2 36.0 - 45.0 fL [facility] RDW coefficient of variation 12.8 11.4 - 13.8 % [facility] Mean Platelet Volume 9.3 7.6 - 12.9 fL [facility] NRBC% auto 0.0 % [facility] NRBC Absolute 0.000 0.000 - 0.000 x10(3)/mc L [facility] Blood 09/17/2022 12:5 1 AM EDT 09/17/2022 12:57 AM EDT Narrative Resulting Agency Comment Spec In Lab Miguel Rogers MD HEMATOLOGY ORDERABLE S Performing Organization Address City/[facility]/ZIP Co de Phone Number [facility] [place] [address] * (ABNORMAL) Phosphorus (09/17/2022 12:51 AM EDT) Phosphorus 2.4(L) 2.5 - 4.5 mg/dL [facility] Blood 09/17/2022 12:5 1 AM EDT 09/17/2022 12:57 AM EDT Narrative Resulting Agency Comment Spec In Lab Asa Skaggs MD CHEMISTRY ORDERABLES Performing Organization Address City/[facility]/ZIP Co de Phone Number [facility] [place] [address] * (ABNORMAL) Magnesium (09/17/2022 12:51 AM EDT) Magnesium 0.58(L) 0.69 - 1.07 mmol/L [facility] Blood 09/17/2022 12:5 1 AM EDT 09/17/2022 12:57 AM EDT Narrative Resulting Agency Comment Spec In Lab Asa Skaggs MD CHEMISTRY ORDERABLES [facility] [place] [address] * (ABNORMAL) Basic Metabolic Panel (non-fasting) (09/17/2022 12:51 AM EDT) Glucose 173 65 - 199 mg/dL [facility] Comment:Diabetes: >=200 mg/d L plus symptoms Blood Urea Nitrogen 11 10 - 20 mg/dL [facility] Comment:result rechecked-[place] Creatinine 1.52(H) 0.80 - 1.50 mg/dL [facility] Sodium 140 135 - 145 mmol/L [facility] Potassium 3.7 3.5 - 5.0 mmol/L [facility] Comment: Please note: ??Patients with WBC >100,000 may have falsely elevated Potassium levels. ??For accurate Potassium quantification in these patients send serum separator tube (gold top) for subsequent determinations. ??Contact the Clinical Chemistry Laboratory if there are any questions. Chloride 107 98 - 107 mmol/L [facility] Carbon Dioxide 21(L) 22 - 31 mmol/L [facility] Anion Gap 12 5 - 15 mmol/L [facility] Calcium 9.0 8.5 - 10.5 mg/dL [facility] Est Glomerular Filtration Rate 48(L) >=60 mL/min/1. 73 m?? [facility] Comment: This patient's estimated GFR was [...] and symptoms in addition to eGFR. Blood 09/17/2022 12:5 1 AM EDT 09/17/2022 12:57 AM EDT Narrative Resulting Agency Comment Spec In Lab Asa Skaggs MD CHEMISTRY ORDERABLES [facility] [place] [address] * (ABNORMAL) CRP, acute inflammation (09/17/2022 12:51 AM EDT) C-Reactive Protein 67.5(H) <=4.9 mg/L [facility] Comment:result rechecked-[place] Blood 09/17/2022 12:5 1 AM EDT 09/17/2022 12:57 AM EDT Narrative Resulting Agency Comment Spec In Lab Dyan Sears MD CHEMISTRY ORDERABLES Performing Organization Address [facility] Co de Phone Number [facility] [place] [address] * POCT Glucose (09/16/2022 11:53 PM EDT) Glucose, POC 132 65 - 199 mg/dL [facility] Comment: Supplemental ranges: <140 mg/dL before meals <180 mg/dL all other times of the day Blood 09/16/2022 11:5 3 PM EDT 09/16/2022 11:53 PM EDT Dyan Sears MD POINT OF CARE TEST O RDERABLES Performing Organization Address City/[facility]/ZIP Co de Phone Number [facility] [place] [address] * POCT Glucose (09/16/2022 7:31 PM EDT) Glucose, POC 165 65 - 199 mg/dL [facility] Comment: Supplemental ranges: <140 mg/dL before meals <180 mg/dL all other times of the day Blood 09/16/2022 7:31 PM EDT 09/16/2022 7:31 PM EDT Dyan Sears MD POINT OF CARE TEST O RDERABLES Performing Organization Address City/[facility]/ZIP Co de Phone Number [facility] [place] [address] * POCT Glucose (09/16/2022 3:33 PM EDT) Glucose, POC 190 65 - 199 mg/dL [facility] Comment: Supplemental ranges: <140 mg/dL before meals <180 mg/dL all other times of the day Blood 09/16/2022 3:33 PM EDT 09/16/2022 3:33 PM EDT Dyan Sears MD POINT OF CARE TEST O RDERABG [facility] [place] [address] * (ABNORMAL) POCT Glucose (09/16/2022 11:42 AM EDT) Glucose, POC 224(H) 65 - 199 mg/dL [facility] Comment: Supplemental ranges: <140 mg/dL before meals <180 mg/dL all other times of the day Blood 09/16/2022 11:4 2 AM EDT 09/16/2022 11:42 AM EDT Dyan Sears MD POINT OF CARE TEST O TED [facility] [place] [address] * POCT Glucose (09/16/2022 7:27 AM EDT) Glucose, POC 154 65 - 199 mg/dL [facility] Comment: Supplemental ranges: <140 mg/dL before meals <180 mg/dL all other times of the day Blood 09/16/2022 7:27 AM EDT 09/16/2022 7:27 AM EDT Dyan Sears MD POINT OF CARE TEST O RDERABG [facility] [place] [address] * POCT Glucose (09/16/2022 3:48 AM EDT) Glucose, POC 124 65 - 199 mg/dL [facility] Comment: Supplemental ranges: <140 mg/dL before meals <180 mg/dL all other times of the day Blood 09/16/2022 3:48 AM EDT 09/16/2022 3:48 AM EDT Dyan Sears MD POINT OF CARE TEST O RDERABLES Performing Organization Address City/[facility]/ZIP Co de Phone Number [facility] [place] [address] * (ABNORMAL) CRP, acute inflammation (09/16/2022 12:49 AM EDT) [facility] C-Reactive Protein 57.7(H) <=4.9 mg/L [facility] Blood Venous Draw / Unknown 09/16/2022 12:49 AM EDT 09/16/2022 12:57 AM EDT Narrative Resulting Agency Comment Spec In Lab Janet Perkins MD CHEMISTRY ORDERABLES Performing Organization Address City/[facility] Co de Phone Number [facility] [place] [address] * Differential, Automated (09/16/2022 12:49 AM EDT) [facility] Neutrophil % 64.8 % [facility] Neutrophil Absolute 5.18 1.70 - 6.10 x10(3)/[facility] Lymph % 19.2 % [facility] Lymphocytes Abs 1.5 0.9 - 3.2 x10(3)/[facility] Monocyte % 9.4 % [facility] Monocyte Abs 0.8 0.3 - 0.9 x10(3)/[facility] Eos % 5.4 % [facility] Eosinophils Abs 0.4 0.0 - 0.4 x10(3)/[facility] Basophil % 0.9 % [facility] Baso Absolute 0.1 0.0 - 0.1 x10(3)/[facility] Immature Gran % 0.30 % [facility] Comment: Immature granulocytes(IG's)percentage and absolute count will include metamyelocytes, myelocytes, and promyelocytes. Blood smears from CBCs yielding IG's will be scanned manually for concordance. If this scan disagrees with the automated IG or if promyelocytes are noted, a manual differential will be performed. Immature Gran Absolute 0.02 0.00 - 0.04 x10(3)/mcL [facility] Blood 09/16/2022 12:4 9 AM EDT 09/16/2022 12:55 AM EDT Narrative Resulting Agency Comment Spec In Lab Miguel Rogers MD HEMATOLOGY ORDERABLE S [facility] [place] [address] * (ABNORMAL) Hemogram (09/16/2022 12:49 AM EDT) White Blood Cell 8.0 4.0 - 9.5 x10(3)/mc L [facility] Red Blood Cell 4.51(L) 4.58 - 5.54 x10(6)/mc L [facility] Hemoglobin 13.6(L) 13.7 - 16.5 g/dL [facility] Hematocrit 39.1(L) 40.5 - 48.5 % [facility] Mean Cell Volume 86.7 82.9 - 93.1 fL [facility] Mean Cell Hemoglobin 30.2 27.5 - 32.1 pg [facility] Mean Cell Hemoglobin Concentration 34.8 32.0 - 35.7 g/dL [facility] Platelet 224 145 - 357 x10(3)/mc L [facility] RDW Standard Deviation 39.9 36.0 - 45.0 fL [facility] RDW coefficient of variation 12.7 11.4 - 13.8 % [facility] Mean Platelet Volume 9.0 7.6 - 12.9 fL [facility] NRBC% auto 0.0 % [facility] NRBC Absolute 0.000 0.000 - 0.000 x10(3)/mc L [facility] Blood 09/16/2022 12:4 9 AM EDT 09/16/2022 12:55 AM EDT Narrative Resulting Agency Comment Spec In Lab Miguel Rogers MD HEMATOLOGY ORDERABLE S Performing Organization Address City/[facility] Co de Phone Number [facility] [place] [address] * (ABNORMAL) Phosphorus (09/16/2022 12:49 AM EDT) Phosphorus 1.9(L) 2.5 - 4.5 mg/dL [facility] Blood 09/16/2022 12:4 9 AM EDT 09/16/2022 12:55 AM EDT Narrative Resulting Agency Comment Spec In Lab Asa Skaggs MD CHEMISTRY ORDERABLES Performing Organization Address [facility] Co de Phone Number [facility] [place] [address] * (ABNORMAL) Magnesium (09/16/2022 12:49 AM EDT) Magnesium 0.64(L) 0.69 - 1.07 mmol/L [facility] Blood 09/16/2022 12:4 9 AM EDT 09/16/2022 12:55 AM EDT Narrative Resulting Agency Comment Spec In Lab Asa Skaggs MD CHEMISTRY ORDERABLES Performing Organization Address [facility] Co de Phone Number [facility] [place] [address] * (ABNORMAL) Basic Metabolic Panel (non-fasting) (09/16/2022 12:49 AM EDT) Glucose 135 65 - 199 mg/dL [facility] Comment:Diabetes: >=200 mg/d L plus symptoms Blood Urea Nitrogen 6(L) 10 - 20 mg/dL [facility] Creatinine 1.20 0.80 - 1.50 mg/dL [facility] Sodium 141 135 - 145 mmol/L [facility] Potassium 3.6 3.5 - 5.0 mmol/L [facility] Comment: Please note: ??Patients with WBC >100,000 may have falsely elevated Potassium levels. ??For accurate Potassium quantification in these patients send serum separator tube (gold top) for subsequent determinations. ??Contact the Clinical Chemistry Laboratory if there are any questions. Chloride 107 98 - 107 mmol/L [facility] Carbon Dioxide 24 22 - 31 mmol/L [facility] Anion Gap 10 5 - 15 mmol/L [facility] Calcium 8.7 8.5 - 10.5 mg/dL [facility] Est Glomerular Filtration Rate 63 >=60 mL/min/1. 73 m?? [facility] Comment: This patient's estimated GFR was [...] and symptoms in addition to eGFR. Blood 09/16/2022 12:4 9 AM EDT 09/16/2022 12:55 AM EDT Narrative Resulting Agency Comment Spec In Lab Asa Skaggs MD CHEMISTRY ORDERABLES Performing Organization Address City/[facility]/ZIP Co de Phone Number [facility] [place] [address] * POCT Glucose (09/16/2022 12:08 AM EDT) Glucose, POC 143 65 - 199 mg/dL [facility] Comment: Supplemental ranges: <140 mg/dL before meals <180 mg/dL all other times of the day Blood 09/16/2022 12:0 8 AM EDT 09/16/2022 12:08 AM EDT Dyan Sears MD POINT OF CARE TEST O RDERABLES Performing Organization Address City/[facility]/ZIP Co de Phone Number [facility] [place] [address] * POCT Glucose (09/15/2022 9:04 PM EDT) Glucose, POC 137 65 - 199 mg/dL [facility] Comment: Supplemental ranges: <140 mg/dL before meals <180 mg/dL all other times of the day Blood 09/15/2022 9:04 PM EDT 09/15/2022 9:04 PM EDT Dyan Sears MD POINT OF CARE TEST O TED [facility] [place] [address] * POCT Glucose (09/15/2022 3:51 PM EDT) Glucose, POC 195 65 - 199 mg/dL [facility] Comment: Supplemental ranges: <140 mg/dL before meals <180 mg/dL all other times of the day Blood 09/15/2022 3:51 PM EDT 09/15/2022 3:51 PM EDT Dyan Sears MD POINT OF CARE TEST Mario JEAN Performing Organization Address City/[facility] Co de Phone Number [facility] [place] [address] * POCT Glucose (09/15/2022 12:00 PM EDT) Glucose, POC 171 65 - 199 mg/dL [facility] Comment: Supplemental ranges: <140 mg/dL before meals <180 mg/dL all other times of the day Blood 09/15/2022 12:0 0 PM EDT 09/15/2022 12:00 PM EDT Asa Skaggs MD POINT OF CARE TEST O TED Performing Organization Address City/[facility] Co de Phone Number [facility] [place] [address] * Tacrolimus level (09/15/2022 11:38 AM EDT) Tacrolimus 12.8 ng/mL [facility] Comment: Trough therapeutic range is 3-15 ng/mL, depending upon transplant type, time since transplantation, use of other 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 drugs, comorbidities, and test method used. Tacrolimus concentration determined using the [employer] Tacrolimus electrochemiluminescence competitive immunoassay. Results from different samples types and methods are not interchangeable. Blood 09/15/2022 11:3 8 AM EDT 09/15/2022 12:23 PM EDT Narrative Resulting Agency Comment Spec In Lab Asa Skaggs MD CHEMISTRY ORDERABLES Performing Organization Address City/[facility] Co de Phone Number [facility] [place] [address] * POCT Glucose (09/15/2022 7:42 AM EDT) Glucose, POC 147 65 - 199 mg/dL [facility] Comment: Supplemental ranges: <140 mg/dL before meals <180 mg/dL all other times of the day Blood 09/15/2022 7:42 AM EDT 09/15/2022 7:42 AM EDT Asa Skaggs MD POINT OF CARE TEST O RDERABLES Performing Organization Address [facility] Co de Phone Number [facility] [place] [address] * POCT Glucose (09/15/2022 5:56 AM EDT) Glucose, POC 158 65 - 199 mg/dL [facility] Comment: Supplemental ranges: <140 mg/dL before meals <180 mg/dL all other times of the day Blood 09/15/2022 5:56 AM EDT 09/15/2022 5:56 AM EDT Asa Skaggs MD POINT OF CARE TEST O RDERABLES Performing Organization Address City/[facility] Co de Phone Number [facility] [place] [address] * POCT Glucose (09/15/2022 4:50 AM EDT) Glucose, POC 164 65 - 199 mg/dL [facility] Comment: Supplemental ranges: <140 mg/dL before meals <180 mg/dL all other times of the day Blood 09/15/2022 4:50 AM EDT 09/15/2022 4:50 AM EDT Asa Skaggs MD POINT OF CARE TEST O RDERABLES Performing Organization Address City/[facility] Co de Phone Number [facility] [place] [address] * (ABNORMAL) CRP, acute inflammation (09/15/2022 12:11 AM EDT) C-Reactive Protein 80.3(H) <=4.9 mg/L [facility] Blood Venous Draw / Unknown 09/15/2022 12:11 AM EDT 09/15/2022 12:20 AM EDT Narrative Resulting Agency Comment Spec In Lab Marcio Haynes MD CHEMISTRY ORDERABLES Performing Organization Address City/[facility] Co de Phone Number [facility] [place] [address] * Differential, Automated (09/15/2022 12:11 AM EDT) Neutrophil % 68.5 % [facility] Neutrophil Absolute 5.50 1.70 - 6.10 x10(3)/[facility] Lymph % 18.2 % [facility] Lymphocytes Abs 1.5 0.9 - 3.2 x10(3)/[facility] Monocyte % 8.1 % [facility] Monocyte Abs 0.6 0.3 - 0.9 x10(3)/[facility] Eos % 3.9 % [facility] Eosinophils Abs 0.3 0.0 - 0.4 x10(3)/[facility] Basophil % 1.1 % [facility] Baso Absolute 0.1 0.0 - 0.1 x10(3)/[facility] Immature Gran % 0.20 % [facility] Comment: Immature granulocytes(IG's)percentage and absolute count will include metamyelocytes, myelocytes, and promyelocytes. Blood smears from CBCs yielding IG's will be scanned manually for concordance. If this scan disagrees with the automated IG or if promyelocytes are noted, a manual differential will be performed. Immature Gran Absolute 0.02 0.00 - 0.04 x10(3)/mcL [facility] Blood 09/15/2022 12:1 1 AM EDT 09/15/2022 12:18 AM EDT Narrative Resulting Agency Comment Spec In Lab Miguel Rogers MD HEMATOLOGY ORDERABLE S [facility] [place] [address] * (ABNORMAL) Hemogram (09/15/2022 12:11 AM EDT) White Blood Cell 8.0 4.0 - 9.5 x10(3)/mc L [facility] Red Blood Cell 4.37(L) 4.58 - 5.54 x10(6)/mc L [facility] Hemoglobin 13.2(L) 13.7 - 16.5 g/dL [facility] Hematocrit 38.2(L) 40.5 - 48.5 % [facility] Mean Cell Volume 87.4 82.9 - 93.1 fL [facility] Mean Cell Hemoglobin 30.2 27.5 - 32.1 pg [facility] Mean Cell Hemoglobin Concentration 34.6 32.0 - 35.7 g/dL [facility] Platelet 217 145 - 357 x10(3)/mc L [facility] RDW Standard Deviation 41.2 36.0 - 45.0 fL [facility] RDW coefficient of variation 12.8 11.4 - 13.8 % [facility] Mean Platelet Volume 9.4 7.6 - 12.9 fL [facility] NRBC% auto 0.0 % [facility] NRBC Absolute 0.000 0.000 - 0.000 x10(3)/mc L [facility] Blood 09/15/2022 12:1 1 AM EDT 09/15/2022 12:18 AM EDT Narrative Resulting Agency Comment Spec In Lab Miguel Rogers MD HEMATOLOGY ORDERABLE S [facility] [place] [address] * (ABNORMAL) Hepatic Function Panel (09/15/2022 12:11 AM EDT) Protein, Total 6.0(L) 6.1 - 8.0 g/dL [facility] Albumin 3.4 3.2 - 5.2 g/dL [facility] Aspartate Aminotransferase 11 0 - 39 unit/L [facility] Alanine Aminotransferase 10 0 - 55 unit/L [facility] Alkaline Phosphatase 67 40 - 130 unit/L [facility] Bilirubin, Total 2.1(H) 0.2 - 1.3 mg/dL [facility] Bilirubin, Direct 0.2 0.0 - 0.3 mg/dL [facility] Blood 09/15/2022 12:1 1 AM EDT 09/15/2022 12:18 AM EDT Narrative Resulting Agency Comment Spec In Lab Asa Skaggs MD CHEMISTRY ORDERABLES Performing Organization Address City/[facility]/ZIP Co de Phone Number [facility] [place] [address] * (ABNORMAL) Phosphorus (09/15/2022 12:11 AM EDT) Pathologist [facility] Phosphorus 2.3(L) 2.5 - 4.5 mg/dL [facility] Blood 09/15/2022 12:1 1 AM EDT 09/15/2022 12:18 AM EDT Narrative Resulting Agency Comment Spec In Lab Asa Skaggs MD CHEMISTRY ORDERABLES [facility] [place] [address] * Magnesium (09/15/2022 12:11 AM EDT) Magnesium 0.78 0.69 - 1.07 mmol/L [facility] Blood 09/15/2022 12:1 1 AM EDT 09/15/2022 12:18 AM EDT Narrative Resulting Agency Comment Spec In Lab Asa Skaggs MD CHEMISTRY ORDERABLES [facility] [place] [address] * (ABNORMAL) Basic Metabolic Panel (non-fasting) (09/15/2022 12:11 AM EDT) Glucose 202(H) 65 - 199 mg/dL [facility] Comment:Diabetes: >=200 mg/d L plus symptoms Blood Urea Nitrogen 9(L) 10 - 20 mg/dL [facility] Creatinine 1.28 0.80 - 1.50 mg/dL [facility] Sodium 140 135 - 145 mmol/L [facility] Potassium 3.7 3.5 - 5.0 mmol/L [facility] Comment: Please note: ??Patients with WBC >100,000 may have falsely elevated Potassium levels. ??For accurate Potassium quantification in these patients send serum separator tube (gold top) for subsequent determinations. ??Contact the Clinical Chemistry Laboratory if there are any questions. Chloride 106 98 - 107 mmol/L [facility] Carbon Dioxide 26 22 - 31 mmol/L [facility] Anion Gap 8 5 - 15 mmol/L [facility] Calcium 8.5 8.5 - 10.5 mg/dL [facility] Est Glomerular Filtration Rate 59(L) >=60 mL/min/1. 73 m?? [facility] Comment: This patient's estimated GFR was [...] and symptoms in addition to eGFR. Blood 09/15/2022 12:1 1 AM EDT 09/15/2022 12:18 AM EDT Narrative Resulting Agency Comment Spec In Lab Asa Skaggs MD CHEMISTRY ORDERABLES [facility] [place] [address] * POCT Glucose (09/14/2022 9:51 PM EDT) Glucose, POC 159 65 - 199 mg/dL [facility] Comment: Supplemental ranges: <140 mg/dL before meals <180 mg/dL all other times of the day Blood 09/14/2022 9:51 PM EDT 09/14/2022 9:51 PM EDT Asa Skaggs MD POINT OF CARE TEST O RDERABLES Performing Organization Address City/[facility]/ZIP Co de Phone Number [facility] [place] [address] documented in this encounter Visit Diagnoses Diagnosis Diverticulitis- Primary Diverticulitis of colon (without mention of hemorrhage) [facility] current use of 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 drug Diverticulitis Diverticulitis of colon (without mention of hemorrhage) documented in this encounter Admitting Diagnoses Diagnosis Diverticulitis Diverticulitis of colon (without mention of hemorrhage) documented in this encounter Administered Medications Inactive Administered Medications - up to 3 most recent administrations Medication Order MAR Action Action Date Dose Rate Site acetaminophen (Tylenol) tablet 975 mg 975 mg, Oral, EVERY 6 HOURS PRN, Starting on Tu09/16/22 at 1629, Until Thu09/19/22 at 1746, Pain, Maximum dose of acetaminophen is 4,000 mg from all sources in 24 hours. When ordered for pain, acetaminophen should be given even when other ordered pain medications are indicated. , Routine Given 09/19/2022 2:37 PM EDT 975 mg Given 09/19/2022 8:00 AM EDT 975 mg Given 09/18/2022 4:12 PM EDT 975 mg amLODIPine (Norvasc) tablet 5 mg 5 mg, Oral, NIGHTLY, First dose on 09/14/22 at 2200, Until Discontinued, Routine Given 09/18/2022 8:06 PM EDT 5 mg Given 09/17/2022 8:08 PM EDT 5 mg Given 09/16/2022 8:56 PM EDT 5 mg ascorbic acid (Vitamin C) (Vitamin C) tablet 500 mg 500 mg, Oral, 3 TIMES DAILY, First dose on Thu09/14/22 at 2200, Until Discontinued, Routine Given 09/19/2022 10:38 AM EDT 500 mg Given 09/18/2022 8:05 PM EDT 500 mg Given 09/18/2022 4:12 PM EDT 500 mg aspirin EC tablet 81 mg 81 mg, Oral, DAILY, First dose on Thu09/15/22 at 0900, Until Discontinued, Routine Given 09/19/2022 10:38 AM EDT 81 mg Given 09/18/2022 9:06 AM EDT 81 mg Given 09/17/2022 9:35 AM EDT 81 mg atorvastatin (Lipitor) tablet 40 mg 40 mg, Oral, EVERY EVENING, First dose on Thu09/14/22 at 2200, Until Discontinued, Routine Given 09/18/2022 4:12 PM EDT 40 mg Given 09/17/2022 4:00 PM EDT 40 mg Given 09/16/2022 4:30 PM EDT 40 mg calciTRIoL (Rocaltrol) capsule 0.5 mcg 0.5 mcg, Oral, DAILY, First dose on Thu09/15/22 at 0900, Until Discontinued, Routine Given 09/19/2022 10:37 AM EDT 0.5 mcg Given 09/18/2022 9:05 AM EDT 0.5 mcg Given 09/17/2022 8:11 AM EDT 0.5 mcg dextrose 10% infusion 250 mL, at 1,000 mL/hr, Intravenous, EVERY 30 MIN PRN, Starting on Thu09/15/22 at 0406, Until Thu09/19/22 at 1746, For BG 50-70 mg/dL: Oral treatment preferred: If able to drink, give 120 mL Juice or Regular (not diet) soda OR If NPO, give 15 gram glucose 40% oral gel massaged into buccal mucosa OR if unconscious or uncooperative, give 25 gram (250 mL) Dextrose 10% IV over 15 minutes per protocol OR, if no IV access, 1 mg Glucagon IM. For BG less than 50 mg/dL: Oral treatment preferred: If able to drink, give 240 mL Juice or Regular (not diet) soda OR If NPO, give 30 gram glucose 40% oral gel massaged in buccal mucosa OR if unconscious or uncooperative, give 25 gram (250 mL) Dextrose 10% IV over 15 minutes per protocol OR, if no IV access, 1 mg Glucagon IM. Recheck BG in 30 minutes. May repeat juice/soda, gel, dextrose or glucagon once per episode. For persistent hypoglycemia, consider longer-acting treatment for the duration of the active insulin. dextrose 5% and sodium chloride 0.45% with potassium chloride 20 mEq infusion 75 mL/hr, Intravenous, CONTINUOUS, Starting on Thu09/14/22 at 2145, Until Thu09/16/22 at 1406, Warning Vesicant/Irritant Medication New Bag 09/16/2022 1:19 PM EDT 75 mL/hr 75 mL/hr New Bag 09/16/2022 12:24 AM EDT 75 mL/hr 75 mL/hr New Bag 09/15/2022 10:48 AM EDT 75 mL/hr 75 mL/hr glucagon (Glucagen) (1 mg/mL) injection solution 1 mg 1 mg, Intramuscular, EVERY 30 MIN PRN, Starting on Thu09/15/22 at 0406, Until Thu09/19/22 at 1746, Low blood sugar, For BG 50-70 mg/dL: Oral treatment preferred: If able to drink, give 120 mL Juice or Regular (not diet) soda OR If NPO, give 15 gram glucose 40% oral gel massaged into buccal mucosa OR if unconscious or uncooperative, give 25 gram (250 mL) Dextrose 10% IV over 15 minutes per protocol OR, if no IV access, 1 mg Glucagon IM. For BG less than 50 mg/dL: Oral treatment preferred: If able to drink, give 240 mL Juice or Regular (not diet) soda OR If NPO, give 30 gram glucose 40% oral gel massaged in buccal mucosa OR if unconscious or uncooperative, give 25 gram (250 mL) Dextrose 10% IV over 15 minutes per protocol OR, if no IV access, 1 mg Glucagon IM. Recheck BG in 30 minutes. May repeat juice/soda, gel, dextrose or glucagon once per episode. For persistent hypoglycemia, consider longer-acting treatment for the duration of the active insulin., Routine glucose (Glutose) 40% oral geL 15-30 g of glucose, Buccal, EVERY 30 MIN PRN, Starting on 09/15/22 at 0406, Until Thu09/19/22 at 1746, Low blood sugar, For BG 50-70 mg/dL: Oral treatment preferred: If able to drink, give 120 mL Juice or Regular (not diet) soda OR If NPO, give 15 gram glucose 40% oral gel massaged into buccal mucosa OR if unconscious or uncooperative, give 25 gram (250 mL) Dextrose 10% IV over 15 minutes per protocol OR, if no IV access, 1 mg Glucagon IM. For BG less than 50 mg/dL: Oral treatment preferred: If able to drink, give 240 mL Juice or Regular (not diet) soda OR If NPO, give 30 gram glucose 40% oral gel massaged in buccal mucosa OR if unconscious or uncooperative, give 25 gram (250 mL) Dextrose 10% IV over 15 minutes per protocol OR, if no IV access, 1 mg Glucagon IM. Recheck BG in 30 minutes. May repeat juice/soda, gel, dextrose or glucagon once per episode. For persistent hypoglycemia, consider longer-acting treatment for the duration of the active insulin. 1 tube of Glutose-15 contains 15 grams of glucose (net weight of tube = 37.5 grams.), Routine heparin (porcine) (5,000 units/1 mL) subcutaneous injection 5,000 Units 5,000 Units, Subcutaneous, EVERY 8 HOURS SCHEDULED, First dose on Thu09/14/22 at 2200, Until Discontinued, Routine Given 09/19/2022 6:09 AM EDT 5,000 Unit s Given 09/18/2022 9:41 PM EDT 5,000 Units Given 09/18/2022 4:12 PM EDT 5,000 Units hydrALAZINE (Apresoline) tablet 100 mg 100 mg, Oral, 2 TIMES DAILY, First dose on Thu09/14/22 at 2200, Until Discontinued, Routine Given 09/19/2022 10:37 AM EDT 100 mg Given 09/18/2022 8:05 PM EDT 100 mg Given 09/18/2022 9:05 AM EDT 100 mg HYDROmorphone (Dilaudid) (0.2 mg/1 mL) injection syringe 0.2 mg 0.2 mg, Intravenous, ONCE, 1 dose, On Thu09/17/22 at 1930, Routine Given 09/17/2022 8:08 PM EDT 0.2 mg insulin lispro (HumaLOG;Admelog) (100 unit/mL) subcutaneous injection vial 1-4 Units 1-4 Units, Subcutaneous, EVERY 4 HOURS SCHEDULED, First dose on Thu09/15/22 at 0500, Until Discontinued, CORRECTION BOLUS [1-4 Units] Sensitive Sliding Scale (BG in mg/dL): Correction factor 40 (1 unit of insulin is expected to drop the glucose 40 mg/dL) BG 160 - 200 Give 1 unit BG 201 - 240 Give 2 units BG 241 - 280 Give 3 units BG greater than 280, give 4 units and recheck BG in 2 hours. - If recheck BG is LESS than 280, give no insulin and resume schedule - If recheck BG is GREATER than 280, give 4 units and repeat BG in 2 hours (no more than 3 times) & call for new insulin orders. DO NOT hold if NPO, unless specifically directed to do so by written order. Per Blood Glucose Monitoring Policy, re-check a BG of > 240 mg/dL in 2 hours., Routine Given 09/19/2022 12:00 PM EDT 1 Units Given 09/18/2022 7:46 PM EDT 1 Units Given 09/18/2022 4:24 PM EDT 1 Units iohexoL (Omnipaque) (350 mg/mL) solution 0-200 mL 0-200 mL, Intravenous, ONCE PRN, 1 dose, Starting on Thu09/17/22 at 1734, Until Thu09/17/22 at 1734, Per Protocol, Warning Vesicant/Irritant Medication , Radiology Contrast, Routine Given 09/17/2022 5:34 PM EDT 120 mLs lactated ringers infusion 75 mL/hr, Intravenous, CONTINUOUS, Starting on Thu09/17/22 at 1900, Until Laura 09/18/22 at 1816 Restarted 09/18/2022 12:10 PM EDT 75 mL/hr 75 mL/hr Rate/Dose Verify 09/18/2022 9:59 AM EDT 75 mL/hr 75 mL/h r New Bag 09/17/2022 6:30 PM EDT 75 mL/hr 75 mL/hr levothyroxine (Synthroid) tablet 137 mcg 137 mcg, Oral, EVERY MORNING, First dose on Thu09/15/22 at 0700, Until Discontinued, Routine Given 09/19/2022 6:09 AM EDT 137 mcg Given 09/18/2022 6:30 AM EDT 137 mcg Given 09/17/2022 8:00 AM EDT 137 mcg magnesium sulfate 2 g in sterile water 50 mL infusion 2 g, Intravenous, EVERY 2 HOURS, 2 doses, First dose on Thu09/18/22 at 0600, Last dose on Thu09/18/22 at 0800, Administer over 120 Minutes New Bag 09/18/2022 9:04 AM EDT 2 g 25 mL/hr New Bag 09/18/2022 5:34 AM EDT 2 g 25 mL/hr melatonin tablet 6 mg 6 mg, Oral, NIGHTLY PRN, Starting on Thu09/14/22 at 2109, Until Thu09/19/22 at 1746, insomnia/sleep, Routine Given 09/17/2022 8:08 PM EDT 6 mg metoprolol succinate XL (Toprol-XL) tablet 50 mg 50 mg, Oral, 2 TIMES DAILY, First dose on Thu09/14/22 at 2200, Until Discontinued, DO NOT CRUSH OR OPEN, Routine Given 09/19/2022 10:37 AM EDT 50 mg Given 09/18/2022 8:06 PM EDT 50 mg Given 09/18/2022 9:06 AM EDT 50 mg mycophenolate (Cellcept) capsule 250 mg 250 mg, Oral, 2 TIMES DAILY, First dose on Thu09/14/22 at 2200, Until Discontinued, DO NOT CRUSH OR OPEN, Routine Given 09/19/2022 10:38 AM EDT 250 mg Given 09/18/2022 8:06 PM EDT 250 mg Given 09/18/2022 9:05 AM EDT 250 mg ondansetron (Zofran) tablet 4 mg 4 mg, Oral, EVERY 8 HOURS PRN, Starting on Thu09/14/22 at 2140, Until Thu09/19/22 at 1746, Nausea, Routine oxyCODONE (Roxicodone) tablet 5 mg 5 mg, Oral, EVERY 4 HOURS PRN, Starting on Thu09/14/22 at 2109, Until Thu09/19/22 at 1746, Pain, For moderate-severe pain (5-10) not releived with other scheduled pain medications, Routine Given 09/19/2022 2:37 PM EDT 5 mg Given 09/19/2022 8:00 AM EDT 5 mg Given 09/18/2022 4:21 PM EDT 5 mg pantoprazole EC (Protonix) tablet 40 mg 40 mg, Oral, DAILY, First dose on Thu09/15/22 at 0900, Until Discontinued, DO NOT CRUSH OR OPEN Given 09/19/2022 10:38 AM EDT 40 mg Given 09/18/2022 9:05 AM EDT 40 mg Given 09/17/2022 8:10 AM EDT 40 mg piperacillin-tazobactam (Zosyn) 3.375 g vial attach to sodium chloride 0.9% 50 mL Mini-Bag Plus 3.375 g, Intravenous, EVERY 8 HOURS, First dose on Thu09/14/22 at 2145, Until Discontinued, Administer over 4 Hours, Warning Vesicant/Irritant Medication Do not administer or Y-site with lactated ringers., Indication for (Active or Suspected): GI/Intra-abdominal New Bag 09/19/2022 8:11 AM EDT 3.375 g 12.5 mL/hr New Bag 09/18/2022 11:42 PM EDT 3.375 g 12.5 mL/hr New Bag 09/18/2022 4:13 PM EDT 3.375 g 12.5 mL/hr polyethylene glycoL (Miralax) packet 17 g 17 g, Oral, DAILY, First dose on Thu09/15/22 at 0900, Until Discontinued, Routine Given 09/18/2022 4:00 PM EDT 17 g Given 09/16/2022 8:23 AM EDT 17 g Given 09/15/2022 9:52 AM EDT 17 g polyethylene glycoL (Miralax) packet 17 g 17 g, Oral, 2 TIMES DAILY, First dose (after last modification) on Thu09/18/22 at 2100, Until Discontinued, Routine Given 09/18/2022 8:06 PM EDT 17 g potassium chloride ER (Klor-Con M) tablet 20 mEq 20 mEq, Oral, ONCE, 1 dose, On Thu09/18/22 at 0600, 20 mEq tablet may be dissolved in water for administration, Routine Given 09/18/2022 5:34 AM EDT 20 mEq potassium chloride ER (Klor-Con M) tablet 40 mEq 40 mEq, Oral, ONCE, 1 dose, On Thu09/19/22 at 1330, 20 mEq tablet may be dissolved in water for administration, Routine Given 09/19/2022 2:41 PM EDT 40 mEq potassium phosphate 15 mMol in sodium chloride 0.9% 250 mL infusion 15 mmol, Intravenous, ONCE, 1 dose, On Thu09/18/22 at 0600, Administer over 4 Hours, Administer over 4-6 hours New Bag 09/18/2022 6:25 AM EDT 15 mmol 62.5 mL/hr senna-docusate (Pericolace) 8.6-50 mg per tablet 2 tablet 2 tablet, Oral, 2 TIMES DAILY, First dose on Thu09/14/22 at 2200, Until Discontinued, Routine Given 09/18/2022 8:05 PM EDT 2 tablets Given 09/17/2022 8:09 PM EDT 2 tablets Given 09/16/2022 8:56 PM EDT 2 tablets sodium bicarbonate 150 mEq in dextrose 5% 1150 mL infusion 3 mL/kg/hr ? 98.7 kg (296.1 mL/hr), Intravenous, CONTINUOUS, Starting on Thu09/17/22 at 1445, Until Thu09/18/22 at 0533, Start [address] and continue for [address] New Bag 09/17/2022 7:24 PM EDT 3 mL/kg/hr 296.1 mL/hr New Bag 09/17/2022 3:20 PM EDT 3 mL/kg/hr 296.1 mL/hr sodium chloride 0.9 % (flush) (BD PosiFlush Normal Saline 0.9) flush 5 mL 5 mL, Intravenous, 2 TIMES DAILY, First dose on Thu09/14/22 at 2200, Until Discontinued, Routine Given 09/18/2022 9:00 PM EDT 5 mLs Given 09/18/2022 9:08 AM EDT 5 mLs Given 09/17/2022 9:00 PM EDT 5 mLs tacrolimus (Prograf) capsule 1 mg 1 mg, Oral, NIGHTLY, First dose on 09/14/22 at 2200, Until Discontinued, DO NOT SPLIT, CRUSH OR OPEN, Routine Given 09/18/2022 8:06 PM EDT 1 mg Given 09/17/2022 8:08 PM EDT 1 mg Given 09/16/2022 8:56 PM EDT 1 mg tacrolimus (Prograf) capsule 1 mg 1 mg, Oral, DAILY, First dose (after last modification) on Thu09/17/22 at 0900, Until Discontinued, DO NOT SPLIT, CRUSH OR OPEN, Routine Given 09/19/2022 10:38 AM EDT 1 mg Given 09/18/2022 9:05 AM EDT 1 mg Given 09/17/2022 8:11 AM EDT 1 mg tacrolimus (Prograf) capsule 2 mg 2 mg, Oral, DAILY, First dose on Thu09/15/22 at 0900, Until Discontinued, DO NOT SPLIT, CRUSH OR OPEN, Routine Given 09/16/2022 8:24 AM EDT 2 mg Given 09/15/2022 12:51 PM EDT 2 mg tamsulosin (Flomax) capsule 0.4 mg 0.4 mg, Oral, DAILY, First dose on Thu09/15/22 at 0900, Until Discontinued, DO NOT CRUSH OR OPEN, Routine Given 09/19/2022 10:38 AM EDT 0.4 mg Given 09/18/2022 9:08 AM EDT 0.4 mg Given 09/17/2022 8:10 AM EDT 0.4 mg documented in this encounter Active and Recently Administered Medications Times are shown in EDT. Scheduled Medication Order 09/17/2022 09/18/2022 09/19/2022 amLODIPine (Norvasc) tablet 5 mg 5 mg, Oral, NIGHTLY, First dose on 09/14/22 at 2200, Until Discontinued, Routine 2007 (Given - Provider: Alla Power RN) 2005 (Given - Provider: Jo-Ann Chen RN) ascorbic acid (Vitamin C) (Vitamin C) tablet 500 mg 500 mg, Oral, 3 TIMES DAILY, First dose on 09/14/22 at 2200, Until Discontinued, Routine 08 (Given - Provider: Emily Dawkins LPN)1509 (Given - Provider: Jomar Cantor RN)2008 (Given - Provider: Alla Power, JADEN) 09 (Given - Provider: Margarita Smiley RN)161 (Given - Provider: Margarita Smiley RN)2004 (Given - Provider: Jo-Ann Chen, JADEN) 1038 (Given - Provider: Margarita Smiley, JADEN) aspirin EC tablet 81 mg 81 mg, Oral, DAILY, First dose on Thu09/15/22 at 0900, Until Discontinued, Routine 0935 (Given - Provider: Emily Dawkins LPN) 09 (Given - Provider: Margarita Smiley, JADEN) 1038 (Given - Provider: Margarita Smiley RN) atorvastatin (Lipitor) tablet 40 mg 40 mg, Oral, EVERY EVENING, First dose on Thu09/14/22 at 2200, Until Discontinued, Routine 1600 (Given - Provider: Emily Dawkins LPN) 161 (Given - Provider: Margarita Smiley RN) calciTRIoL (Rocaltrol) capsule 0.5 mcg 0.5 mcg, Oral, DAILY, First dose on Thu09/15/22 at 0900, Until Discontinued, Routine 0811 (Given - Provider: Emily Dawkins LPN) 0905 (Given - Provider: Margarita Smiley RN) 1037 (Given - Provider: Margarita Smiley RN) heparin (porcine) (5,000 units/1 mL) subcutaneous injection 5,000 Units 5,000 Units, Subcutaneous, EVERY 8 HOURS SCHEDULED, First dose on 09/14/22 at 2200, Until Discontinued, Routine 0800 (Given - Provider: Emily Dawkins LPN)1509 (Given - Provider: Jomar Cantor RN)2199 (Given - Provider: Alla Power RN) 0534 (Given - Provider: Alla Power RN)161 (Given - Provider: Margarita Smiley RN)214 (Given - Provider: Jo-Ann Chen, JADEN) 0609 (Given - Provider: Jo-Ann Chen, JADEN) hydrALAZINE (Apresoline) tablet 100 mg 100 mg, Oral, 2 TIMES DAILY, First dose on Thu09/14/22 at 2200, Until Discontinued, Routine 08 (Given - Provider: Emily Dawkins LPN)2007 (Given - Provider: Alla Power RN) 0905 (Given - Provider: Margarita Smiley, JADEN)2004 (Given - Provider: Jo-Ann Chen, JADEN) 1037 (Given - Provider: Margarita Smiley, JADEN) HYDROmorphone (Dilaudid) (0.2 mg/1 mL) injection syringe 0.2 mg (COMPLETED) 0.2 mg, Intravenous, ONCE, 1 dose, On Thu09/17/22 at 1930, Routine 2007 (Given - Provider: Alla Power, JADEN) insulin lispro (HumaLOG;Admelog) (100 unit/mL) subcutaneous injection vial 1-4 Units(Linked Group 1) 1-4 Units, Subcutaneous, EVERY 4 HOURS SCHEDULED, First dose on Thu09/15/22 at 0500, Until Discontinued, CORRECTION BOLUS [1-4 Units] Sensitive Sliding Scale (BG in mg/dL): Correction factor 40 (1 unit of insulin is expected to drop the glucose 40 mg/dL) BG 160 - 200 Give 1 unit BG 201 - 240 Give 2 units BG 241 - 280 Give 3 units BG greater than 280, give 4 units and recheck BG in 2 hours. - If recheck BG is LESS than 280, give no insulin and resume schedule - If recheck BG is GREATER than 280, give 4 units and repeat BG in 2 hours (no more than 3 times) & call for new insulin orders. DO NOT hold if NPO, unless specifically directed to do so by written order. Per Blood Glucose Monitoring Policy, re-check a BG of > 240 mg/dL in 2 hours., Routine 0000 (Not Given - Provider: Gail Miller RN - Reason: Order parameters not met)0400 (Not Given - Provider: Gail Miller RN - Reason: Order parameters not met)0800 (Not Given - Provider: Emily Dawkins LPN - Reason: Order parameters not met - Comment: [phone] (Given - Provider: Emily Dawkins LPN - Comment: [phone] (Given - Provider: Emily Dawkins LPN - Comment: [phone])2006 (Given - Provider: Alla Power RN) 0000 (Not Given - Provider: Alla Power RN - Reason: Order parameters not met)0400 (Not Given - Provider: Alla Power RN - Reason: Order parameters not met)0800 (Not Given - Provider: Margarita Smiley RN - Reason: Order parameters not met - Comment: blood sugar 129 at 745am)1219 (Given - Provider: Margarita Smiley RN)1624 (Given - Provider: Margarita Smiley RN - Comment: 188bs)1946 (Given - Provider: Jo-Ann Chen RN) 0000 (Not Given - Provider: Jo-Ann Chen RN - Reason: Order parameters not met)0400 (Not Given - Provider: Jo-Ann Chen RN - Reason: Order parameters not met)0800 (Not Given - Provider: Margarita Smiley RN - Reason: Order parameters not met - Comment: bs [phone])1200 (Given - Provider: Margarita Smiley RN - Comment: bs 189) levothyroxine (Synthroid) tablet 137 mcg 137 mcg, Oral, EVERY MORNING, First dose on Thu09/15/22 at 0700, Until Discontinued, Routine 0800 (Given - Provider: Emily Dawkins LPN) 0630 (Given - Provider: Alla Power RN) 0609 (Given - Provider: Jo-Ann Chen RN) magnesium sulfate 2 g in sterile water 50 mL infusion (COMPLETED) 2 g, Intravenous, EVERY 2 HOURS, 2 doses, First dose on Thu09/18/22 at 0600, Last dose on Thu09/18/22 at 0800, Administer over 120 Minutes 0534 (New Bag - Provider: Alla Power RN)0734 (Stopped - Provider: Margarita Smiley RN)0904 (New Bag - Provider: Margarita Smiley RN)1104 (Stopped - Provider: Margarita Smiley RN) metoprolol succinate XL (Toprol-XL) tablet 50 mg 50 mg, Oral, 2 TIMES DAILY, First dose on Thu09/14/22 at 2200, Until Discontinued, DO NOT CRUSH OR OPEN, Routine 08 (Given - Provider: Emily Dawkins LPN)2007 (Given - Provider: Alla Power, JADEN) 905 (Given - Provider: Margarita Smiley, JADEN)2005 (Given - Provider: Jo-Ann Chen, JADEN) 1037 (Given - Provider: Margarita Smiley RN) mycophenolate (Cellcept) capsule 250 mg 250 mg, Oral, 2 TIMES DAILY, First dose on Thu09/14/22 at 2200, Until Discontinued, DO NOT CRUSH OR OPEN, Routine 08 (Given - Provider: Emily Dawkins LPN)2007 (Given - Provider: Alla Power, JADEN) 904 (Given - Provider: Margarita Smiley, JADEN)2005 (Given - Provider: Jo-Ann Chen, JADEN) 1038 (Given - Provider: Margarita Smiley RN) pantoprazole EC (Protonix) tablet 40 mg 40 mg, Oral, DAILY, First dose on Thu09/15/22 at 0900, Until Discontinued, DO NOT CRUSH OR OPEN 0810 (Given - Provider: Emily Dawkins LPN) 904 (Given - Provider: Margarita Smiley RN) 1038 (Given - Provider: Margarita Smiley RN) piperacillin-tazobactam (Zosyn) 3.375 g vial attach to sodium chloride 0.9% 50 mL Mini-Bag Plus 3.375 g, Intravenous, EVERY 8 HOURS, First dose on Thu09/14/22 at 2145, Until Discontinued, Administer over 4 Hours, Warning Vesicant/Irritant Medication Do not administer or Y-site with lactated ringers., Indication for (Active or Suspected): GI/Intra-abdominal 0056 (Stopped - Provider: Gail Miller RN)0800 (New Bag - Provider: Emily Dawkins LPN)1200 (Stopped - Provider: Emily Dawkins LPN)1559 (New Bag - Provider: Emily Dawkins LPN)1624 (Paused - Provider: Emily Dawkins LPN - Comment: paused while bicarb infusing)195 (Hold - Provider: Jomar Cantor RN - Reason: See comment - Comment: see mar)2318 (New Bag - Provider: Alla Power, JADEN) 0403 (Stopped - Provider: Alla Power RN)0907 (New Bag - Provider: Margarita Smiley RN)1307 (Stopped - Provider: Margarita Smiley RN)1613 (New Bag - Provider: Margarita Smiley, JADEN)2012 (Stopped - Provider: Jo-Ann Chen RN)2342 (New Bag - Provider: Jo-Ann Chen RN) 0342 (Stopped - Provider: Luma uS RN)0811 (New Bag - Provider: Margarita Smiley RN)1054 (Stopped - Provider: Margarita Smiley RN) polyethylene glycoL (Miralax) packet 17 g (CANCELED) 17 g, Oral, DAILY, First dose on Thu09/15/22 at 0900, Until Discontinued, Routine 0810 (Not Given - Provider: Emily Dawkins LPN - Reason: Patient/family refused) 1600 (Given - Provider: Margarita Smiley RN - Comment: per MD ok to give late afternoon instead of this AM) polyethylene glycoL (Miralax) packet 17 g 17 g, Oral, 2 TIMES DAILY, First dose (after last modification) on Thu09/18/22 at 2100, Until Discontinued, Routine 2005 (Given - Provider: Jo-Ann Chen RN) 0900 (Not Given - Provider: Margarita Smiley RN - Reason: Patient/family refused) potassium chloride ER (Klor-Con M) tablet 20 mEq (COMPLETED) 20 mEq, Oral, ONCE, 1 dose, On Laura 09/18/22 at 0600, 20 mEq tablet may be dissolved in water for administration, Routine 0534 (Given - Provider: Alla Power RN) potassium chloride ER (Klor-Con M) tablet 40 mEq (COMPLETED) 40 mEq, Oral, ONCE, 1 dose, On Thu09/19/22 at 1330, 20 mEq tablet may be dissolved in water for administration, Routine 1441 (Given - Provider: Margarita Smiley RN) potassium phosphate 15 mMol in sodium chloride 0.9% 250 mL infusion (COMPLETED) 15 mmol, Intravenous, ONCE, 1 dose, On Laura 09/18/22 at 0600, Administer over 4 Hours, Administer over 4-6 hours 0625 (New Bag - Provider: Alla Power RN)09 (Stopped - Provider: Margarita Smiley RN) senna-docusate (Pericolace) 8.6-50 mg per tablet 2 tablet 2 tablet, Oral, 2 TIMES DAILY, First dose on 09/14/22 at 2200, Until Discontinued, Routine 08 (Not Given - Provider: Emily Dawkins LPN - Reason: Patient/family refused)2008 (Given - Provider: Alla Power RN) 904 (Not Given - Provider: Margarita Smiley RN - Reason: Patient/family refused)2004 (Given - Provider: Jo-Ann Chen RN) 0900 (Not Given - Provider: Margarita Smiley RN - Reason: Patient/family refused) sodium chloride 0.9 % (flush) (BD PosiFlush Normal Saline 0.9) flush 5 mL 5 mL, Intravenous, 2 TIMES DAILY, First dose on 09/14/22 at 2200, Until Discontinued, Routine 09 (Not Given - Provider: Emily Dawkins LPN - Reason: See comment - Comment: fluid infusing)2099 (Given - Provider: Alla Power RN) 09 (Given - Provider: Margarita Smiley RN)2099 (Given - Provider: Jo-Ann Chen RN) 0900 (Not Given - Provider: Margarita Smiley RN - Reason: Order parameters not met - Comment: no iv, iv removed for dc) tacrolimus (Prograf) capsule 1 mg 1 mg, Oral, NIGHTLY, First dose on 09/14/22 at 2200, Until Discontinued, DO NOT SPLIT, CRUSH OR OPEN, Routine 2007 (Given - Provider: Alla Power RN) 2005 (Given - Provider: Jo-Ann Chen RN) tacrolimus (Prograf) capsule 1 mg 1 mg, Oral, DAILY, First dose (after last modification) on Thu09/17/22 at 0900, Until Discontinued, DO NOT SPLIT, CRUSH OR OPEN, Routine 810 (Given - Provider: Emily Dawkins LPN) 0905 (Given - Provider: Margarita Smiley, JADEN) 1038 (Given - Provider: Margarita Smiley, JADEN) tamsulosin (Flomax) capsule 0.4 mg 0.4 mg, Oral, DAILY, First dose on Thu09/15/22 at 0900, Until Discontinued, DO NOT CRUSH OR OPEN, Routine 0810 (Given - Provider: Emily Dawkins LPN) 0908 (Given - Provider: Margarita Smiley, JADEN) 1038 (Given - Provider: Margarita Smiley, JADEN) Continuous Medication Order 09/17/2022 09/18/2022 09/19/2022 lactated ringers infusion (CANCELED) 75 mL/hr, Intravenous, CONTINUOUS, Starting on Thu09/17/22 at 1900, Until Laura 09/18/22 at 1816 1830 (New Bag - Provider: Jomar Cantor RN) 0959 (Rate/Dose Verify - Provider: Margarita Smiley, JADEN)1114 (Paused - Provider: Margarita Smiley RN - Comment: pt showering)1210 (Restarted - Provider: Margarita Smiley, JADEN)1816 (Stopped - Provider: Margarita Smiley, JADEN) sodium bicarbonate 150 mEq in dextrose 5% 1150 mL infusion (CANCELED) 3 mL/kg/hr ? 98.7 kg (296.1 mL/hr), Intravenous, CONTINUOUS, Starting on Thu09/17/22 at 1445, Until Laura 09/18/22 at 0533, Start [address] and continue for [address] 1520 (New Bag - Provider: Jomar Cantor RN)1924 (New Bag - Provider: Luma Su RN)212 (Stopped - Provider: Alla Power RN) PRN Medication Order 09/17/2022 09/18/2022 09/19/2022 acetaminophen (Tylenol) tablet 975 mg 975 mg, Oral, EVERY 6 HOURS PRN, Starting on Thu09/16/22 at 1629, Until Thu09/19/22 at 1746, Pain, Maximum dose of acetaminophen is 4,000 mg from all sources in 24 hours. When ordered for pain, acetaminophen should be given even when other ordered pain medications are indicated. , Routine 0905 (Given - Provider: Margarita Smiley RN)1612 (Given - Provider: Margarita Smiley RN) 0800 (Given - Provider: Margarita Smiley RN)1437 (Given - Provider: Margarita Smiley RN) bisacodyL (Dulcolax) suppository 10 mg 10 mg, Rectal, DAILY PRN, Starting on Thu09/14/22 at 2109, Until Thu09/19/22 at 1746, Constipation, Routine dextrose 10% infusion(Linked Group 2) 250 mL, at 1,000 mL/hr, Intravenous, EVERY 30 MIN PRN, Starting on 09/15/22 at 0406, Until Thu09/19/22 at 1746, For BG 50-70 mg/dL: Oral treatment preferred: If able to drink, give 120 mL Juice or Regular (not diet) soda OR If NPO, give 15 gram glucose 40% oral gel massaged into buccal mucosa OR if unconscious or uncooperative, give 25 gram (250 mL) Dextrose 10% IV over 15 minutes per protocol OR, if no IV access, 1 mg Glucagon IM. For BG less than 50 mg/dL: Oral treatment preferred: If able to drink, give 240 mL Juice or Regular (not diet) soda OR If NPO, give 30 gram glucose 40% oral gel massaged in buccal mucosa OR if unconscious or uncooperative, give 25 gram (250 mL) Dextrose 10% IV over 15 minutes per protocol OR, if no IV access, 1 mg Glucagon IM. Recheck BG in 30 minutes. May repeat juice/soda, gel, dextrose or glucagon once per episode. For persistent hypoglycemia, consider longer-acting treatment for the duration of the active insulin. glucagon (Glucagen) (1 mg/mL) injection solution 1 mg(Linked Group 2) 1 mg, Intramuscular, EVERY 30 MIN PRN, Starting on 09/15/22 at 0406, Until Thu09/19/22 at 1746, Low blood sugar, For BG 50-70 mg/dL: Oral treatment preferred: If able to drink, give 120 mL Juice or Regular (not diet) soda OR If NPO, give 15 gram glucose 40% oral gel massaged into buccal mucosa OR if unconscious or uncooperative, give 25 gram (250 mL) Dextrose 10% IV over 15 minutes per protocol OR, if no IV access, 1 mg Glucagon IM. For BG less than 50 mg/dL: Oral treatment preferred: If able to drink, give 240 mL Juice or Regular (not diet) soda OR If NPO, give 30 gram glucose 40% oral gel massaged in buccal mucosa OR if unconscious or uncooperative, give 25 gram (250 mL) Dextrose 10% IV over 15 minutes per protocol OR, if no IV access, 1 mg Glucagon IM. Recheck BG in 30 minutes. May repeat juice/soda, gel, dextrose or glucagon once per episode. For persistent hypoglycemia, consider longer-acting treatment for the duration of the active insulin., Routine glucose (Glutose) 40% oral geL(Linked Group 2) 15-30 g of glucose, Buccal, EVERY 30 MIN PRN, Starting on Thu09/15/22 at 0406, Until Thu09/19/22 at 1746, Low blood sugar, For BG 50-70 mg/dL: Oral treatment preferred: If able to drink, give 120 mL Juice or Regular (not diet) soda OR If NPO, give 15 gram glucose 40% oral gel massaged into buccal mucosa OR if unconscious or uncooperative, give 25 gram (250 mL) Dextrose 10% IV over 15 minutes per protocol OR, if no IV access, 1 mg Glucagon IM. For BG less than 50 mg/dL: Oral treatment preferred: If able to drink, give 240 mL Juice or Regular (not diet) soda OR If NPO, give 30 gram glucose 40% oral gel massaged in buccal mucosa OR if unconscious or uncooperative, give 25 gram (250 mL) Dextrose 10% IV over 15 minutes per protocol OR, if no IV access, 1 mg Glucagon IM. Recheck BG in 30 minutes. May repeat juice/soda, gel, dextrose or glucagon once per episode. For persistent hypoglycemia, consider longer-acting treatment for the duration of the active insulin. 1 tube of Glutose-15 contains 15 grams of glucose (net weight of tube = 37.5 grams.), Routine iohexoL (Omnipaque) (350 mg/mL) solution 0-200 mL (COMPLETED) 0-200 mL, Intravenous, ONCE PRN, 1 dose, Starting on Thu09/17/22 at 1734, Until Thu09/17/22 at 1734, Per Protocol, Warning Vesicant/Irritant Medication , Radiology Contrast, Routine 1734 (Given - Provider: Lorraine Hanna) lidocaine (Xylocaine) 1% (10 mg/mL) injection 3 mg 3 mg (0.3 mL), Subcutaneous, ONCE PRN, 1 dose, Starting on Thu09/14/22 at 2109, Until Thu09/19/22 at 1746, for discomfort with PIV insertion, Routine melatonin tablet 6 mg 6 mg, Oral, NIGHTLY PRN, Starting on Thu09/14/22 at 2109, Until Thu09/19/22 at 1746, insomnia/sleep, Routine 2007 (Given - Provider: Alla Power RN) ondansetron (Zofran) tablet 4 mg 4 mg, Oral, EVERY 8 HOURS PRN, Starting on Thu09/14/22 at 2140, Until Thu09/19/22 at 1746, Nausea, Routine oxyCODONE (Roxicodone) tablet 5 mg 5 mg, Oral, EVERY 4 HOURS PRN, Starting on Thu09/14/22 at 2109, Until Thu09/19/22 at 1746, Pain, For moderate-severe pain (5-10) not releived with other scheduled pain medications, Routine 2345 (Given - Provider: Alla Power RN) 0906 (Given - Provider: Margarita Smiley RN)1621 (Given - Provider: Margarita Smiley RN) 0800 (Given - Provider: Margarita Smiley, JADEN)1437 (Given - Provider: Margarita Smiley, JADEN) sodium chloride 0.9 % (flush) (BD PosiFlush Normal Saline 0.9) flush 5-20 mL 5-20 mL, Intravenous, EVERY 1 MIN PRN, Starting on 09/14/22 at 2109, Until Thu09/19/22 at 1746, flush, Flush pertains to all indwelling lines. Flush per protocol found in the job aid using the link provided on this medication record., Routine Linked Groups Order Group 1: POCT Fingerstick Glucose (CANCELED) Routine, EVERY 4 HOURS, First occurrence on Thu09/15/22 at 0410, Until Specified, Consider choosing EVERY 4 HOURS as frequency for: - Type 1 Diabetes - At least 24 hours after coming off an insulin drip - At least 24 hours after admission for DKA - Hypoglycemia unawareness - Patients who are otherwise unstable Select the same frequency for the correction bolus insulin order And insulin lispro (HumaLOG;Admelog) (100 unit/mL) subcutaneous injection vial 1-4 UnitsJump to med 1-4 Units, Subcutaneous, EVERY 4 HOURS SCHEDULED, First dose on Thu09/15/22 at 0500, Until Discontinued, CORRECTION BOLUS [1-4 Units] Sensitive Sliding Scale (BG in mg/dL): Correction factor 40 (1 unit of insulin is expected to drop the glucose 40 mg/dL) BG 160 - 200 Give 1 unit BG 201 - 240 Give 2 units BG 241 - 280 Give 3 units BG greater than 280, give 4 units and recheck BG in 2 hours. - If recheck BG is LESS than 280, give no insulin and resume schedule - If recheck BG is GREATER than 280, give 4 units and repeat BG in 2 hours (no more than 3 times) & call for new insulin orders. DO NOT hold if NPO, unless specifically directed to do so by written order. Per Blood Glucose Monitoring Policy, re-check a BG of > 240 mg/dL in 2 hours., Routine Group 2: glucose (Glutose) 40% oral geLJump to med 15-30 g of glucose, Buccal, EVERY 30 MIN PRN, Starting on Thu09/15/22 at 0406, Until Thu09/19/22 at 1746, Low blood sugar, For BG 50-70 mg/dL: Oral treatment preferred: If able to drink, give 120 mL Juice or Regular (not diet) soda OR If NPO, give 15 gram glucose 40% oral gel massaged into buccal mucosa OR if unconscious or uncooperative, give 25 gram (250 mL) Dextrose 10% IV over 15 minutes per protocol OR, if no IV access, 1 mg Glucagon IM. For BG less than 50 mg/dL: Oral treatment preferred: If able to drink, give 240 mL Juice or Regular (not diet) soda OR If NPO, give 30 gram glucose 40% oral gel massaged in buccal mucosa OR if unconscious or uncooperative, give 25 gram (250 mL) Dextrose 10% IV over 15 minutes per protocol OR, if no IV access, 1 mg Glucagon IM. Recheck BG in 30 minutes. May repeat juice/soda, gel, dextrose or glucagon once per episode. For persistent hypoglycemia, consider longer-acting treatment for the duration of the active insulin. 1 tube of Glutose-15 contains 15 grams of glucose (net weight of tube = 37.5 grams.), Routine Or dextrose 10% infusionJump to med 250 mL, at 1,000 mL/hr, Intravenous, EVERY 30 MIN PRN, Starting on Thu09/15/22 at 0406, Until Thu09/19/22 at 1746, For BG 50-70 mg/dL: Oral treatment preferred: If able to drink, give 120 mL Juice or Regular (not diet) soda OR If NPO, give 15 gram glucose 40% oral gel massaged into buccal mucosa OR if unconscious or uncooperative, give 25 gram (250 mL) Dextrose 10% IV over 15 minutes per protocol OR, if no IV access, 1 mg Glucagon IM. For BG less than 50 mg/dL: Oral treatment preferred: If able to drink, give 240 mL Juice or Regular (not diet) soda OR If NPO, give 30 gram glucose 40% oral gel massaged in buccal mucosa OR if unconscious or uncooperative, give 25 gram (250 mL) Dextrose 10% IV over 15 minutes per protocol OR, if no IV access, 1 mg Glucagon IM. Recheck BG in 30 minutes. May repeat juice/soda, gel, dextrose or glucagon once per episode. For persistent hypoglycemia, consider longer-acting treatment for the duration of the active insulin. Or glucagon (Glucagen) (1 mg/mL) injection solution 1 mgJump to med 1 mg, Intramuscular, EVERY 30 MIN PRN, Starting on Thu09/15/22 at 0406, Until Thu09/19/22 at 1746, Low blood sugar, For BG 50-70 mg/dL: Oral treatment preferred: If able to drink, give 120 mL Juice or Regular (not diet) soda OR If NPO, give 15 gram glucose 40% oral gel massaged into buccal mucosa OR if unconscious or uncooperative, give 25 gram (250 mL) Dextrose 10% IV over 15 minutes per protocol OR, if no IV access, 1 mg Glucagon IM. For BG less than 50 mg/dL: Oral treatment preferred: If able to drink, give 240 mL Juice or Regular (not diet) soda OR If NPO, give 30 gram glucose 40% oral gel massaged in buccal mucosa OR if unconscious or uncooperative, give 25 gram (250 mL) Dextrose 10% IV over 15 minutes per protocol OR, if no IV access, 1 mg Glucagon IM. Recheck BG in 30 minutes. May repeat juice/soda, gel, dextrose or glucagon once per episode. For persistent hypoglycemia, consider longer-acting treatment for the duration of the active insulin., Routine documented in this encounter Care Teams Film Editor Relationship Specialty Start Date End Date Urbano Jimenez DO [address] [place] [address] PCP - General Family Medicine 03/18/22 Ruchi Valles RN Nurse Clinic Transplant Surgery 07/30/15 documented as of this encounter
--- OUTSIDE RECORDS SUMMARY | 2024-02-14 11:16 | XMS_ITS | Encounter Summary ---
[place] [address] Care Team Providers Care Quartz Miner Blasting Name Role Phone Urbano Jimenez DO Primary Care Provider [phone] Encounter Details Date Type Department Care Team (Latest Contact Info) Description 09/16/2022 10:00 AM EDT - 09/16/2022 11:59 PM EDT Hospital Encounter [place] [phone] Discharge Disposition: Home Social History Tobacco Use Types Packs/Day Years Used Date Smoking Tobacco: Light Smoker Cigars Smokeless Tobacco: Never Comments:cigars, one weekly Alcohol Use Standard Drinks/Week Comments No 0 (1 standard drink = 0.6 oz pur e alcohol) [facility] Inpatient Questions Answer Date Recorded Does [...] mouth 2 times daily for 7 days. 14 tablet 09/19/2022 09/19/2022 amoxicillin-clavulanate (Augmentin) 875-125 mg Tablet Take 1 tablet by mouth 2 times daily for 7 days. 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 Author DH Home Medication Compliance and Understanding Patient Facing Action Plan On track( 017 10:41 AM EDT) No Selena Cisneros, [facility] Note: Patient Goal: Clear hepatitis C Timeframe to meet goal: within 12 weeks of therapy documented as of this encounter Visit Diagnoses Not on filedocumented in this encounter Care Teams Quartz Miner Blasting Relationship Specialty Start Date End Date Urbano Jimenez DO [address] [place] [address] PCP - General Family Medicine 03/18/22 Ruchi Valles RN Nurse Clinic Transplant Surgery 07/30/15 documented as of this encounter
--- OUTSIDE RECORDS SUMMARY | 2024-02-14 11:17 | XMS_ITS | Encounter Summary ---
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 Social History [...] AM EDT Hospital Encounter Non-[place] [phone] Arrived Scheduled Orders Name Type Priority Associated Diagnoses Orde r Schedule CBC (with Diff) Lab Routine H/O kidney transplant Vitamin D deficiency shelter current use of 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 drug Expected: 03/18/2022, Expires: 09/16/2023 Comprehensive metabolic panel (non-fasting) Lab Routine H/O kidney transplant Vitamin D deficiency 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 Expected: 03/18/2022, Expires: 09/16/2023 Phosphorus Lab Routine H/O kidney transplant Vitamin D deficiency 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 Expected: 03/18/2022, Expires: 09/16/2023 Magnesium Lab Routine H/O kidney transplant Vitamin D deficiency shelter current use of 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 drug Expected: 03/18/2022, Expires: 09/16/2023 Uric acid Lab Routine H/O kidney transplant Vitamin D deficiency 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 Author DH Home Medication Compliance and Understanding Patient Facing Action Plan On track( 017 10:41 AM EDT) Selena Scott, [facility] Note: Patient Goal: Clear hepatitis C Timeframe to meet goal: within 12 weeks of therapy documented as of this encounter Results * Phosphorus, urine, random (03/18/2022 11:01 AM EDT) Phosphorus, Urine 26.0 mg/dL [facility] Urine 03/18/2022 11:0 1 AM EDT 03/18/2022 11:20 AM EDT Narrative Resulting Agency Comment Spec In Lab Tal Eagle MD URINE ORDERABLES [facility] [place] [address] * Magnesium, urine, random (03/18/2022 11:01 AM EDT) Magnesium, Urine 2.28 mmol/L [facility] Urine 03/18/2022 11:0 1 AM EDT 03/18/2022 11:20 AM EDT Narrative Resulting Agency Comment Spec In Lab Tal Eagle MD URINE ORDERABLES Performing Organization Address City/[facility] Co de Phone Number [facility] [place] [address] * Calcium Creatinine Ratio, random urine (03/18/2022 11:01 AM EDT) Calcium, Urine 11.9 mg/dL [facility] Creatinine, Urine 145 mg/dL [facility] Calcium / Creatinine Ratio, Urine 0.08 ratio [facility] Urine 03/18/2022 11:0 1 AM EDT 03/18/2022 11:20 AM EDT Narrative Resulting Agency Comment Spec In Lab Tal Eagle MD URINE ORDERABLES Performing Organization Address City/[facility] de Phone Number [facility] [place] [address] * BKV Quant Blood (03/18/2022 10:58 AM EDT) BKV Blood Result Not Detected Not Detected IU/mL [facility] Comment: Indication for Study: Monitoring BKV DNA Analysis: The ester BKV test is an in vitro nucleic acid amplification tests using real-time polymerase chain reaction (PCR) assay for the quantitative measurement of BK virus (BKV) DNA in human EDTA plasma. Sample: EDTA plasma Method: ester BKV test used with the [employer] platform ([employer]) Linear Range: 21.5 - 1.0 x 10^8 IU/mL (1.33 - 8.00 log IU/mL) Note: The Kirsten ester BKV assay has been cleared by the U.S. Food and Drug Administration for clinical testing. Blood 03/18/2022 10:5 8 AM EDT 03/18/2022 12:52 PM EDT Narrative Resulting Agency Comment Spec In Lab Tal Eagle MD MOLECULAR ORDERAB LES Performing Organization Address City/[facility] Co de Phone Number [facility] [place] [address] * Gold Tube HOLD (03/18/2022 10:58 AM EDT) Pathologist [facility] Gold Hold Sample in lab. [facility] Blood 03/18/2022 10:5 8 AM EDT 03/18/2022 11:13 AM EDT Tal Eagle MD CHEMISTRY ORDERAB LES Performing Organization Address [facility] Co de Phone Number [facility] [place] [address] * 1,25-dihydroxycholecalciferol (03/18/2022 10:58 AM EDT) Vit D 1,25 Dihydroxy (NOVEMBER) 43 18 - 64 pg/mL [facility] Comment: ADDITIONAL INFORMATION This test was developed and its performance characteristics determined by [facility] in a manner consistent with CLIA requirements. This test has not been cleared or approved by the U.S. Food and Drug Administration. Test Performed by: [facility] - [address] [address] Lens Cutter: Edinson Garcia M.D. Ph.D.; CLIA# [id number] Blood 03/18/2022 10:5 8 AM EDT 03/18/2022 1:56 PM EDT Narrative Resulting Agency Comment Spec In Lab Tal Eagle MD LAB SEND OUT ORDE RABLENORE Performing Organization Address [facility] Co de Phone Number [facility] [place] [address] * Vitamin D, 25-Hydroxy (03/18/2022 10:58 AM EDT) Vitamin D Total 25 OH 39 21 - 100 ng/mL [facility] Vit D Interp Sufficient [facility] Blood 03/18/2022 10:5 8 AM EDT 03/18/2022 11:13 AM EDT Narrative Resulting Agency Comment Spec In Lab Tal Eagle MD CHEMISTRY ORDERAB LES Performing Organization Address [facility] Co de Phone Number [facility] [place] [address] * PTH (03/18/2022 10:58 AM EDT) Parathyroid Hormone 38 15 - 65 pg/mL [facility] Blood 03/18/2022 10:5 8 AM EDT 03/18/2022 11:17 AM EDT Narrative Resulting Agency Comment Spec In Lab Tal Eagle MD CHEMISTRY ORDERAB LES Performing Organization Address [facility] Co de Phone Number [facility] [place] [address] * Reticulocyte Count (03/18/2022 10:58 AM EDT) Reticulocyte % 1.8 0.7 - 2.6 % [facility] Retic Abs # 0.080 0.030 - 0.120 x10(6)/[facility]ORATORY Immature Retic% 10.0 0.0 - 15.6 % [facility] Reticulated Hgb 35.2 31.3 - 40.2 pg [facility] Blood 03/18/2022 10:5 8 AM EDT 03/18/2022 11:15 AM EDT Narrative Resulting Agency Comment Spec In Lab Tal Eagle MD HEMATOLOGY ORDERA BLES [facility] [place] [address] * (ABNORMAL) Hemoglobin A1c (03/18/2022 10:58 AM EDT) Hemoglobin A1c 6.6(H) 4.3 - 5.6 % [facility] Comment: Reference Range: 4.3 - [...] Mellitus, Diabetes Care 2013; 36: Suppl. 1, V87-26 Estimated Average Glucose See note mg/dL [facility] Comment: Estimated Average Glucose not [...] into estimated average glucose values. ??Diabetes Care 2008:31(8):3444-1371. 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
--- OUTSIDE RECORDS SUMMARY | 2024-02-14 11:17 | XMS_ITS | Encounter Summary ---
Author Organization [facility] [place] [address] Care Team Providers Care Bag Sealer Name Role Phone Urbano Denis DO Primary Care Provider [phone] Reason for Visit * Consultation (Routine) - Closed Specialty Diagnoses / Procedures Referred By Contact Referred To Contact Electrophysiology / Cardiology Diagnoses Tachy-roman syndrome Tachy-roman syndrome Leela Acosta MD [facility] [place] [address] [facility] Cardiology [address] [place] [phone] Referral ID Status Reason Start Date Expiration Date V isits Requested Visits Authorized [id number] Closed Consult, Test & Treat 02/04/2022 02/04/2023 1 1 Encounter Details Date Type Department Care Team (Late st Contact Info) Description 02/12/2022 11:00 AM EDT Office Visit Cardiology at [address] [phone] Elisha Amaya RN Tachy-roman syndrome Social History Tobacco Use Types Packs/Day Years [...] Sign Reading Time Taken Comments Blood Pressure 139/71 02/12/2022 11:06 AM EDT Pulse 62 02/12/2022 11:06 AM EDT Temperature - - Respiratory Rate - - Oxygen Saturation 100% 02/12/2022 11:06 AM EDT Inhaled Oxygen Concentration - - Weight 103.4 kg (228 lb) 02/12/2022 11:06 AM EDT Height 180.3 cm (5' 11) 02/12/2022 11:06 AM EDT Body Mass Index 31.8 02/12/2022 11:06 AM EDT documented in this encounter Progress Notes * Elisha Amaya RN - 02/12/2022 11:00 AM EDT Images from the original note were not included. Clinical Electrophysiology Device Service Note Cody Bolden is a 71 y.o. male who presents today for a post op pacemaker programming evaluation. 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 He is not on anticoagulation due to bleeding While on eliquis, he states Dr Brown is puttinghim in for consult on having a Watchman device implanted. He and his had several questions about Afib, and risks associated with it, what a watchman device was and how his pacemaker and monitor is functioning. Literature was given for review as well as Demos of pacemaker and Watchman were shown. PCP:Urbano Denis, [employer] Tender: Dr Brown Final Parameters at implant: ? 1. Medtronic Geneva XT DR LOULOU Model #W1DR01, Serial # [id number] Atrial lead ?? 1. Medtronic CapsureFix Model# 5076-45 cm Serial# [id number] ??? Bipolar, steroid-tipped, active-fixation IS-1 lead ??? Access: ? Right Axillary vein ??? Location ? Right atrial appendage ??? F wave, pacemaker: ?? 0.6 mV ??? Pacing threshold, pacemaker: N/A (pt in atrial flutter) ??? Impedance, pacemaker: ??437 Ohms ??? Diaphragmatic Stim. @ 8V: ??No Ventricular electrode: ?? Medtronic CapsureFix Model# 5076-52 cm Serial# [id number] ??? Bipolar, steroid-tipped, active-fixation IS-1 lead ??? Access: ? Right Axillary vein ??? Location: ?Right ventricular apical septum ??? R wave, pacemaker: ?11.1 mV ??? Pacing threshold, pacemaker: 0.5 V at 0.4 ms ??? Impedance, pacemaker: ??607 ohms ??? Diaphragmatic Stim. @ 8V : No Settings: Underlying rhythm: AF with ventricular rates 40-80's Presenting: AF/VS/GUEST SERVICES Atrial Lead: P wave: 0.4 mV Fib wave Impedance: 399 ohms Threshold: not performed Ventricular Lead: R wave: 7.9 mV Impedance: 418 ohms Threshold: 0.75V@0.4 ms Since January Heart rate histograms: reasonable distribution Pacing percentages: AP 6.3%; GUEST SERVICES 61.5 % Mode switch episodes: 214 for a 97.2% burden- with average ventricular rates 60- 90's bpm, some atrial undersensing observed suggesting burden is greater. VHR: None PVC per hour: 3.3 singles and 0.5 of the 2-4 beat runs Battery voltage: 3.21V(MARBLE COPER:2.63 V) Est 12.6 years remaining Wound assessment: Well approximated and healing RIGHT chest incision with no drainage or hematoma. No redness or signs of infection. Reprogramming: Iterative changes to assess device function. Plan: Remote has Iphone monitor which is active and monioring RTC for 91 day check Provider: Elisha Amaya RN Attending: Dr Urban documented in this encounter Plan of Treatment Upcoming Encounters Date Type Department Care Team (Late st Contact Info) Description 04/15/2024 10:00 AM EDT Hospital Encounter Non-[place] [address] Arrived Scheduled Referrals Name Type Priority Associated Diagnoses Order Schedule Referral to Cardiac Electrophysiology Outpatient Referral Routine Tachy-roman syndrome Ordered: 02/04/2022 documented as of this encounter Goals Goal Patient Goal Type Associated Problems Recent Progress Patient-Stated? Author DH Home Medication Compliance and Understanding Patient Facing Action Plan On track( 017 10:41 AM EDT) Selena Scott, [facility] Note: Patient Goal: Clear hepatitis C Timeframe to meet goal: within 12 weeks of therapy documented as of this encounter Visit Diagnoses Diagnosis Tachy-roman syndrome Sinoatrial node dysfunction documented in this encounter Care Teams Bag Sealer Relationship Specialty Start Date End Date Urbano Denis DO [address] [place] [address] PCP - General 09/03/12 03/17/22 Ruchi Valles RN Nurse Clinic Transplant Surgery 07/30/15 documented as of this encounter
--- OUTSIDE RECORDS SUMMARY | 2024-02-14 11:17 | XMS_ITS | Encounter Summary ---
[place] [address] Care Team Providers Care Rn Integrity Name Role Phone Urbano Denis DO Primary Care Provider Encounter Details Date Type Department Care Team (Late st Contact Info) Description 02/04/2022 Telephone Cardiology at [address] [phone] Marisela Bob, RN Social History Tobacco Use Types Packs/Day Years Used Date Smoking Tobacco: Some Days Cigarettes Last attempted to quit: 01/02/1985 Cigars Smokeless Tobacco: Never Comments:cigars, one weekly Alcohol Use Standard Drinks/Week Comments No 0 (1 standard drink = 0.6 oz pur e alcohol) Sex and Gender Information Value Date Recorded Sex Assigned at Not on file Gender Identity Not on file Sexual Orientation Not on file documented as of this encounter Miscellaneous Notes * Telephone Encounter - Marisela Bob RN - 02/04/2022 9:58 AM EDT RTC to Mrs Bolden to let her know that Dr Brown has approved for her 's visit on 02/05/2022,to be changed from in person to Telehealth. Talked with Anna Owen, who states she will change Mr Bolden's appointment to telehealth, and call him and his , for confirmation. Marisela Bob RN (Jodie), BSN [facility] documented in this encounter Plan of Treatment Upcoming Encounters Date Type Department Care Team (Late st Contact Info) Description 04/15/2024 10:00 AM EDT Hospital Encounter Non-Invasive [place] [address] Arrived documented as of this encounter Goals [...] on filedocumented in this encounter Care Teams Rn Integrity Relationship Specialty Start Date End Date Urbano Denis DO [address] [place] [address] PCP - General 09/03/12 03/17/22 Ruchi Valles RN Nurse Clinic Transplant Surgery 07/30/15 documented as of this encounter
--- OUTSIDE RECORDS SUMMARY | 2024-02-14 11:17 | XMS_ITS | Encounter Summary ---
[place] [address] Care Team Providers Care Turnstile Collector Name Role Phone Urbano Denis DO Primary Care Provider [phone] Reason for Referral * Diagnostic Test (Routine) - Closed Specialty Diagnoses / Procedures Referred By Humberto flor Referred To Contact Cardiology Diagnoses Tachy-roman syndrome Procedures Echocardiogram Transthoracic Shaq Damon MD [facility] [place] [address] [facility] [place] [address] Referral ID Status Reason Start Date Expiration Date V isits Requested Visits Authorized [id number] Closed Specialty Service Requested 02/19/2022 04/19/2022 1 1 Encounter Details Date Type Department Care Team (Late st Contact Info) Description 02/05/2022 11:00 AM EDT TH Visit (TeleHealth) Cardiology at [address] [address] Shaq Damon MD [facility] [place] [address] Tachy-orman syndrome Social History Tobacco Use Types Packs/Day [...] Progress Notes * Shaq Damon MD - 02/05/2022 11:00 AM EDT Images from the original note were not included. [facility] [place] [address] CARDIOLOGY/ VASCULAR OUTPATIENT NOTE Ethel Denis, OFFICE VISIT : (telehealth/phone) SUBJECTIVE: I spoke with Yash Akins and his by phone today. As below, the patient was recently in the hospital for tachy-roman and was treated with a pacemaker. He seems to be doing well overall. Arm is a little sore with the new pacemaker. They had to put it on the right side since he has an AVF in the left side. He denies any chest pain or shortness of breath. No palpitations. It is noted that he sees a local physician, Shannan Colunga, at [facility] for Parkinson's. His walking is somewhat limited due to this. We discussed the issues surrounding anticoagulation. See below. From the recent discharge summary: ?? This is a 71 year old gentleman, followed by cardiology at [facility] (Dr Michael Damon). 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 ??2019 he underwent PCI, also history of basal ganglia bleed. ??Now with atrial fibrillation. ?? He underwent pacemaker implantation (see details below). Note that we did not anticoagulate him as he has history of basal ganglia bleed. His [id number] score is high and I have reached out to his cell stripper (Dr. Michael Damon) to have him follow up (attempt at cheondoism of sinus, benefits:risks foranticoagulation, consideration of Watchman Device). From my prior note (03/2021): 70 year old male ?? S/p kidney transplant in 2016. ? Admitted to [facility] in January 2019 with newly diagnosed AFlutter and a NSTEMI. ??He underwent cardiac cath and PCI to an OM lesion. ??LVEF was initially 30% (while in AFL with RVR) - but improved over time back to normal (most recent echo 2020 with normal LVEF). ?? Recent hemorrhagic stroke as above. ?? Cardiac meds include: -met sux 25, amlodipine 2.5, atorvastatin 40 ?? -remains in NSR -obtain ZIO to screen for PAF (Afib or AFL) -ok to remain off DOAC for now despite history of AFL -consider restarting ASA 81 per neuro -follow-up with me in -follow-up with neuro Meds: Current Outpatient Medications Medication Sig Dispense Refill ??? metoprolol succinate XL (Toprol-XL) 25 mg Tablet Sustained Release 24 hr Take 2 tablets by mouth daily. 90 tablet 2 ??? amLODIPine (Norvasc) 5 mg Tablet Take 1 tablet by mouth daily. 90 tablet 3 ??? atorvastatin (Lipitor) 40 mg Tablet Take 1 tablet by mouth every evening. 90 tablet 3 ??? aspirin EC 81 mg Tablet, Delayed Release (E.C.) Take 81 mg by mouth daily. ??? calciTRIoL (Rocaltrol) 0.5 mcg Capsule TAKE ONE CAPSULE BY MOUTH EVERY DAY 90 capsule 3 ??? tacrolimus (Prograf) 1 mg Capsule TAKE TWO CAPSULES BY MOUTH EVERY MORNING AND ONE CAPSULE NIGHTLY 90 capsule 11 ??? mycophenolate (Cellcept) 250 mg Capsule Take 1 capsule by mouth 2 times daily. 60 capsule 11 ??? hydrALAZINE (Apresoline) 100 mg Tablet Take 1 tablet by mouth 2 times daily. 180 tablet 3 ??? Magnesium Gluconate 27 mg magnesium (500 mg) Tablet TAKE TWO TABLETS BY MOUTH EVERY MORNING, ONE TABLET AT NOON, AND TWO TABLETS EVERY EVENING 450 tablet 3 ??? ascorbic acid, Vitamin C, (Vitamin C) 500 mg Tablet Take 1 tablet by mouth 3 times daily. 270 tablet 2 ??? multivitamin with minerals and lutein Tablet Take 2 tablets by mouth daily. 180 tablet 2 ??? glipiZIDE XL (Glucotrol [...] Tablet Take 137 mcg by mouth daily. Most recent labs or other cardiac testing: Echo 01/2022: Left ventricle is of normal size. Wall [...] planimetric valve area of 2.2 cm2. The mean gradient across the aortic valve is 8 mmHg. There is trace aortic regurgitation. Compared to 12/20/2020, the pt is now in atrial fibrillation, there is mildly reduced biventricular systolic function, the estimated PASP has increased. ASSESSMENT / PLAN: 70 year old male ?? S/p kidney transplant in 2016. ? Admitted to [facility] in January 2019 with newly diagnosed AFlutter and a NSTEMI. ??He underwent cardiac cath and PCI to an OM lesion. ??LVEF was initially 30% (while in AFL with RVR) - but improved over time back to normal (most recent echo 2020 with normal LVEF). Readmitted to [facility] in January 2022 with recurrent AF, presumed tachymyopathy (EF 46%) and tachy-roman.Treated with pacemaker. #AF -rate control : he is on metoprolol sux 50 mg po qd, sees adequate -anticoagulation: this gets a little complicated. He states that he was on eliquis for more than a year when he was diagnosed with a spontaneous basal ganglia bleed in February of 2021. No trauma reported. He presented with some mental status changes/confusion and fatigue. He has recovered. Subsequent follow-up with NSR and ISHAO with no AF/AFL when he saw neuro in Jun 2021. He was maintained on ASA only. However, with the recent episode of recurrent AF he is at least a paroxysmal AF patient and may remain in AF with pacing. He is obviously very reluctant to go back on eliquis. 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 We will refer the patient to the structural heart team. ?? Follow-up plan: 3 months with an echo at that time (LVEF ?). Shaq Damon MD, [facility] Cardiovascular Medicine [place] [id number] Clinic [phone] Clinic Team Nurse: [phone] The total time associated with this visit was 30 minutes. documented in this encounter Plan of Treatment Upcoming Encounters Date Type Department Care Team (Late st Contact Info) Description 04/15/2024 10:00 AM EDT Hospital Encounter [place] [address] Arrived documented as of this encounter Goals Goal Patient Goal Type Associated Problems Recent Progress Patient-Stated? Author DH Home Medication Compliance and Understanding Patient Facing Action Plan On track( 017 10:41 AM EDT) No Selena Cisneros, [facility] Note: Patient Goal: Clear hepatitis C Timeframe to meet goal: within 12 weeks of therapy documented as of this encounter Results * ECHO LMTD W/O CONTRAST W LMTD SPEC DOPP COLOR DOPP (02/19/2022 1:51 PM EDT) Anatomical Region Laterality Modality Cardiac Other 02/19/2022 1:02 PM EDT Narrative 02/19/2022 4:39 PM EDT ? Echocardiogram Report Name: ETHEL AKINS ? Study Date: 02/19/2022 01:02 PM ?BP: 152/81 mmHg ?Patient Location: 4A ? HR: 68 : 1950 ?Height: 180 cm ? Account: [id number] Age: 71 yrs ?Weight: 103 kg Gender: Male ? BSA: 2.2 m2 Ordering Physician: SHAQ DAMON Referring Physician: SHAQ DAMON Performed By: Kameron Miller RDCS Reason For Study: Evaluate for pericardial effusion, cardiomyopathy History: Atrial Flutter, CAD (PCI to OM), HF, Tachy-Roman Syndrome Interpretation Summary Left ventricle is mildly dilated. [...] aortic stenosis. There is moderate mitral regurgitation. Procedure Limited - 55476. Doppler - 08579. Color Doppler - 87473. Satisfactory quality. There is a pacemaker rhythm. Left Ventricle Left ventricle is mildly dilated. Wall thickness is moderately increased. Left ventricular systolic function is mildly reduced. The left ventricular ejection fraction is 45% by Elizabeth's biplane. The left ventricular ejection fraction is 47% by 3D volumetric assessment. Global longitudinal strain is measured at -9.7 (GE) %. There is global hypokinesis with regional variation. Right Ventricle The right ventricle is of normal size. Right ventricular systolic function is mildly decreased. Left Atrium The left atrium is severely dilated. Right Atrium The right atrium is moderately dilated. Aortic Valve The aortic valve is mildly thickened. The noncoronary cusp of the aortic valve is mildly calcified. The aortic leaflet excursion is mildly reduced. There is mild aortic stenosis. The peak instantaneous gradient across the aortic valve is 16 mmHg. The mean gradient across the aortic valve is 10 mmHg. The stroke volume index is 30.3 mL/m2. The dimensionless index is 0.42. There is trace aortic regurgitation. Mitral Valve No thickening of the mitral leaflets. There is no mitral stenosis. There is moderate mitral regurgitation. The color Doppler jet is posteriorly directed. Tricuspid Valve The tricuspid valve is structurally and functionally normal. There is trace tricuspid regurgitation. Venous Inferior vena cava is normal in size. Inferior vena cava collapse less than 50% with respiration. Pericardium/Pleural There is a trivial pericardial effusion. There is no evidence of hemodynamic compromise. Hemodynamics The estimated right atrial pressure is 8mmHg. The peak right ventricular systolic pressure is 33 mmHg. Left ventricular diastolic function is abnormal. There is Grade III LV diastolic dysfunction (restriction with markedly elevated left ventricular filling pressure). Ejection Fraction ?2D Measurements ? Volumes 4D EF: 47.1 % ? IVSd: 1.5 cm ? LA Volume Index: LV Biplane EF: 44.8 % ? LVIDd: 5.7 cm ?66.9 ml/m2 ?LVIDs: 4.3 cm ?EDV Biplane: 177.0 ml ?LVPWd: 1.5 cm ?EDV Biplane Index: 79.6 ?LV mass(C)d: 385.4 grams ? ESV Biplane: 97.7 ml ?LV mass(C)dI: 173.4 grams/m2 ?? ESV Biplane Index: 44.0 ?Ao root diam: 3.7 cm ? 3D ESV: 78.9 ml ?Ao root diam index: 1.7 ?3D EDV: 149.1 ml ?LVOT diam: 2.2 cm ?3D EDV Index: 67.1 ?TAPSE_phl: 1.8 cm ?3D ESV Index: 35.5 ? SV(LVOT): 67.4 ml ? LV Stroke Volume: 67.3 ml ? SI(LVOT): 30.3 ml/m2 Doppler ?3D/Strain/TomTec TR max kris: 243.4 cm/sec ??LV GLS (S3P): -9.7 % RVSP(TR): 31.7 mmHg Ao V2 VTI: 43.4 cm Ao valve max: 15.8 mmHg Ao valve mean: 9.5 mmHg MV E max kris: 90.0 cm/sec MV A max kris: 28.0 cm/sec MV E/A: 3.2 MV dec time: 0.20 sec Lat Peak E' Kris: 5.0 cm/sec E/ e' (lat): 18.1 Med Peak E' Kris: 2.7 cm/sec E/e' (med): 33.7 E/e' Average: 25.9 SHANIA(I,D): 1.6 cm2 Dimensionless index Aov: 0.42 I ?WMSI = 2.00 ? % Normal = 0 ?Segments ??Size X - Cannot ?2 - ?4 - ?1-2 ? small Interpret ?1 - Normal ?? Hypokinetic 3 - Akinetic Dyskinetic ?? 3-5 ? moderate 5 - ? 6-14 ?large Aneurysmal ?15-16 ?? diffuse Procedure Note Gibson Rooney MD - 02/19/2022 Echocardiogram Report Name: ETHEL AKINS Study Date: 02/19/2022 01:02 PM BP: 152/81mmHg Patient Location: 4A HR: 68 : 1950 Height: 180 cm Account:[id number] Age: 71 yrs Weight: 103 kg Gender: Male BSA: 2.2 m2 Ordering Physician: SHAQ DAMON Referring Physician: SHAQ DAMON Performed By: Kameron Miller RDCS Reason For Study: Evaluate for pericardial effusion, cardiomyopathy History: Atrial Flutter, CAD (PCI to OM), HF, Tachy-Roman Syndrome Interpretation Summary Left ventricle is mildly dilated. Wall thickness is moderately increased.Left ventricular systolic function is mildly reduced. The left ventricularejection fraction is 45% by Elizabeth's biplane. There is global hypokinesis withregional variation. The right ventricle is of normal size. Right ventricular systolic functionis mildly decreased. Estimated PASP is 33 mHg. There is mild aortic stenosis. There is moderate mitral regurgitation. Procedure Limited - 76687. Doppler - 78514. Color Doppler - 19757. Satisfactoryquality. There is a pacemaker rhythm. Left Ventricle Left ventricle is mildly dilated. Wall thickness is moderately increased.Left ventricular systolic function is mildly reduced. The left ventricularejection fraction is 45% by Elizabeth's biplane. The left ventricular ejectionfraction is 47% by 3D volumetric assessment. Global longitudinal strain is measured at-9.7 (GE) %. There is global hypokinesis with regional variation. Right Ventricle The right ventricle is of normal size. Right ventricular systolic functionis mildly decreased. Left Atrium The left atrium is severely dilated. Right Atrium The right atrium is moderately dilated. Aortic Valve The aortic valve is mildly thickened. The noncoronary cusp of the aorticvalve is mildly calcified. The aortic leaflet excursion is mildly reduced. There ismild aortic stenosis. The peak instantaneous gradient across the aortic valveis 16 mmHg. The mean gradient across the aortic valve is 10 mmHg. The strokevolume index is 30.3 mL/m2. The dimensionless index is 0.42. There is traceaortic regurgitation. Mitral Valve No thickening of the mitral leaflets. There is no mitral stenosis. Thereis moderate mitral regurgitation. The color Doppler jet is posteriorlydirected. Tricuspid Valve The tricuspid valve is structurally and functionally normal. There istrace tricuspid regurgitation. Venous Inferior vena cava is normal in size. Inferior vena cava collapse lessthan 50% with respiration. Pericardium/Pleural There is a trivial pericardial effusion. There is no evidence ofhemodynamic compromise. Hemodynamics The estimated right atrial pressure is 8mmHg. The peak right ventricularsystolic pressure is 33 mmHg. Left ventricular diastolic function is abnormal.There is Grade III LV diastolic dysfunction (restriction with markedly elevatedleft ventricular filling pressure). Ejection Fraction 2D Measurements Volumes 4D EF: 47.1 % IVSd: 1.5 cm LA VolumeIndex: LV Biplane EF: 44.8 % LVIDd: 5.7 cm 66.9 ml/m2 LVIDs: 4.3 cm EDV Biplane:177.0 ml LVPWd: 1.5 cm EDV BiplaneIndex: 79.6 LV mass(C)d: 385.4 grams ESV Biplane: 97.7ml LV mass(C)dI: 173.4 grams/m2 ESV BiplaneIndex: 44.0 Ao root diam: 3.7 cm 3D ESV: 78.9 ml Ao root diam index: 1.7 3D EDV: 149.1ml LVOT diam: 2.2 cm 3D EDV Index:67.1 TAPSE_phl: 1.8 cm 3D ESV Index:35.5 SV(LVOT): 67.4ml LV Stroke Volume:67.3 ml SI(LVOT): 30.3ml/m2 Doppler 3D/Strain/TomTec TR max kris: 243.4 cm/sec LV GLS (S3P): -9.7 % RVSP(TR): 31.7 mmHg Ao V2 VTI: 43.4 cm Ao valve max: 15.8 mmHg Ao valve mean: 9.5 mmHg MV E max kris: 90.0 cm/sec MV A max kris: 28.0 cm/sec MV E/A: 3.2 MV dec time: 0.20 sec Lat Peak E' Kris: 5.0 cm/sec E/ e' (lat): 18.1 Med Peak E' Kris: 2.7 cm/sec E/e' (med): 33.7 E/e' Average: 25.9 SHANIA(I,D): 1.6 cm2 Dimensionless index Aov: 0.42 I WMSI = 2.00 % Normal = 0 SegmentsSize X - Cannot 2 - 4 - 1-2small Interpret 1 - Normal Hypokinetic 3 - Akinetic Dyskinetic 3-5moderate 5 - 6-14large Aneurysmal 15-16diffuse Shaq Damon MD ECHO ORDERABLES documented in this encounter Visit Diagnoses Diagnosis Tachy-roman syndrome Sinoatrial node dysfunction Tachy-roman syndrome Sinoatrial node dysfunction documented in this encounter Care Teams Turnstile Collector Relationship Specialty Start Date End Date Urbano Denis DO [address] [place] [address] [address] [place] [address] PCP - General 09/03/12 03/17/22 Ruchi Valles RN Nurse Clinic Transplant Surgery 07/30/15 documented as of this encounter
--- OUTSIDE RECORDS SUMMARY | 2024-02-14 11:17 | XMS_ITS | Encounter Summary ---
Author Organization [place] [address] Care Team Providers Care Drafter Topographical Name Role Phone AdeelUrbano boland Primary Care Provider [phone] Encounter Details Date Type Department Care Team (Late st Contact Info) Description 02/18/2022 Telephone Cardiology at [address] [address] Luigi Mathew MD [facility] [place] [address] Social History Tobacco Use Types Packs/Day Years [...] encounter Miscellaneous Notes * Telephone Encounter - Luigi Mathew MD - 02/18/2022 7:48 PM EDT Telephone Triage Note Initial Contact Date: 02/18/2022 Initial Contact Time: 19:49 Referring Provider: Dr. Easton Patient Location: [facility] Presenting Symptoms per OSH: Mr. Bolden is a 71 y/o M w/ PMH HTN, T2DM, ASCVD s/p PCI to OM, iCM with recovered EF, atrial fibrillation (not on AC due to intracranial bleed), tachy- sakina syndrome s/p PPM, ESRD s/p renal transplant, prior CVA, diverticulitis who presents with general malaise and fatigue. Denies chest pain andshortness of breath. Pacer interrogation AT/AF February 16 and Ventricular rates over 100 BPM VS: 153/70, HR 71, RR 26, SpO2 95% on RA Appears euvolemic on exam Pertinent Diagnostic Findings: - ECG: atrial flutter with V-paced complexes - BNP 2980 (prior on 01/30/2022 4113) - CXR appearing mild pulmonary vascular congestion - Troponin negative - Cr 1.47 - WBC normal, H/H normal Assessment and Plan: Patient is presenting with non-specific symptoms. A remote interrogation of the patient's pacemakerwas performed and limited information is available from this interrogation but reportedly patient was in atrial fibrillation/atrial flutter intermittently on February 16 and . We do not know if patient's rates were significantly elevated during this time, however, patient's rates are not currently elevated and he remains symptomatic (malaise) so I think it is hard to attribute his symptoms to theatrial fibrillation alone. Furthermore, we are somewhat limited in our treatment options since patient is unable to tolerate anticoagulation. Otherwise, patient is not obviously volume overloaded and BNP is lower than a prior recent value. Recommend ultrasound of IVC to assist in determining volume status. Patient likely needs a broad work-up for his malaise including infectious and metabolic etiologies.Unfortunately we do not have beds available to transfer the patient (including on our list for tomorrow). Above recommendations/plans are based on my conversation with the referring provider. I have not personally interviewed or examined this patient. Luigi Mathew MD Proposal Analyst PGY-5 [facility] documented in this encounter Plan of Treatment Upcoming Encounters Date Type Department Care Team (Late st Contact Info) Description 04/15/2024 10:00 AM EDT Hospital Encounter Non-[place]vasive [place] [address] Arrived documented as of this [...] on filedocumented in this encounter Care Teams Drafter Topographical Relationship Specialty Start Date End Date Urbano Denis DO [facility] [address] [facility] [address] [place] [address] PCP - General 09/03/12 03/17/22 Ruchi Valles RN Nurse Clinic Transplant Surgery 07/30/15 documented as of this encounter
--- OUTSIDE RECORDS SUMMARY | 2024-02-14 11:17 | XMS_ITS | Encounter Summary ---
[place] [address] Care Team Providers Care Direct Marketing Executive Name Role Phone Urbano Jimenez DO Primary Care Provider Reason for Visit * Reason Onset Date Comments Other 05/07/2022 Asking if I had called Encounter Details Date Type Department Care Team (Late st Contact Info) Description 05/07/2022 Telephone Cardiology at [address] [phone] Herlinda Li RN Other (Asking if I had called ) Social History Tobacco Use Types Packs/Day Years [...] encounter Miscellaneous Notes * Telephone Encounter - Herlinda Li RN - 05/07/2022 10:00 AM EDT Chart reviewed. This nurse did not call him. No messages seen. Number to [employer] Schedulers given. Pt reports a message was left but he accidentally erased it prior to listening. Herlinda Li RN 4A Cardiology documented in this encounter Plan of Treatment Upcoming Encounters Date Type Department Care Team (Late st Contact Info) Description 04/15/2024 10:00 AM EDT Hospital Encounter [place] [address] Arrived documented as of this encounter Goals [...] on filedocumented in this encounter Care Teams Direct Marketing Executive Relationship Specialty Start Date End Date Urbano Jimenez DO [address] [place] [address] PCP - General Family Medicine 03/18/22 Ruchi Valles RN Nurse Clinic Transplant Surgery 07/30/15 documented as of this encounter
--- OUTSIDE RECORDS SUMMARY | 2024-02-14 11:17 | XMS_ITS | Encounter Summary ---
[place] [address] Care Team Providers Care Loss Prevention Representative Name Role Phone Urbano Denis DO Primary Care Provider [phone] Reason for Visit * Reason Onset Date Comments Post Procedure Call 02/06/2022 Encounter Details Date Type Department Care Team (Late st Contact Info) Description 02/06/2022 Notes Only Cardiology at [address] [address] Carmela Bentley, RN Post Procedure Call Social History Tobacco Use Types Packs/Day Years [...] as of this encounter Progress Notes * Carmela Bentley, RN - 02/06/2022 11:59 PM EDTSummary: Post Procedure Call: Pacemaker Implant EP RN Post-Procedure Note: Date of Follow Up Call: 02/07/2022 Spoke With: Patient Procedure Type (choose all that apply): Pacemaker Leadless Pacemaker: No Performing MD: Wilmar Date of Procedure: 01/31/2022 Date of Discharge: 02/01/2022 Follow Up EP Visit Scheduled?: Yes Date of EP Visit: 02/12/2022 Intra or Post Procedure Event: Did any Intra or Post Procedure Events Occur?: No Medications at Hospital Discharge: Aspirin: Yes P2Y12 Inhibitor: No Other Antiplatelet: No Warfarin: No DOAC: No Other Anticoagulant: No Beta Frantz (any): Yes Digoxin: No Diltiazem/Verapamil: No Amiodarone: No Dofetilide: No Dronedarone: No Flecainide: No Propafenone: No Sotalol: No PPI: No Other Antiarrhythmic: No Med Changes/Clarification Since Discharge: Metoprolol was increased to 50 mg per day Assessment: Access Site Assessment (Choose all that apply): None of the above Device Pocket Assessment (Choose all that apply): None of the above UTI symptoms (Choose all that apply): None of the above Signs and Symptoms of Infection (Choose all that apply): None of the above Headaches: No Complaints of: (choose all that apply): None of the above Free Text Note: Follow Up Instruction: Wound Care: -Wound will heal in approx 7-10 days.It may be tender, it may appear slightly red and bumpy and there may -be dry, crusty scabbing. These are all normal. -Inspect the wound for signs of infection which can be drainage, swelling, warmth or increased painor redness. - Do not scratch or rub the wound or apply any creams, lotions or ointments on the wound until it is completely healed. - You may cover the wound with gauze if it rubs on clothing and causes you discomfort. - Avoid direct water pressure on the wound - continue this for 7 - 10 days. Do not submerge wound for 14 days - Do not scrub or wash would if Dermabond is used - You may remove your dressing on: Thursday, February 08 Arm Restrictions: - Do not raise your elbow on the operated side above the shoulder for 6 weeks - Do not lift greater than 7 pounds (equal to a gallon of milk) on the operated side for 6 weeks. - Do not fully extend this arm in any direction away from the torso for 6 weeks - You may use your arm on the operated side, but do not make extreme movement (such as stretching or reaching for a heavy object) for 6 weeks - No driving for maximum of 1 week documented in this encounter Plan of Treatment Upcoming Encounters Date Type Department Care Team (Late st Contact Info) Description 04/15/2024 10:00 AM EDT Hospital Encounter Non-Invasive [place] [address] Arrived documented as of this encounter Goals Goal Patient Goal Type Associated Problems Recent Progress Patient-Stated? Author DH Home Medication Compliance and Understanding Patient Facing Action Plan On track( 017 10:41 AM EDT) Selena Scott, [facility] Note: Patient Goal: Clear hepatitis C Timeframe to meet goal: within 12 weeks of therapy documented as of this encounter Visit Diagnoses Not on filedocumented in this encounter Care Teams Loss Prevention Representative Relationship Specialty Start Date End Date Urbano Denis DO [address] [place] [address] PCP - General 09/03/12 03/17/22 Ruchi Valles RN Nurse Clinic Transplant Surgery 07/30/15 documented as of this encounter
--- OUTSIDE RECORDS SUMMARY | 2024-02-14 11:17 | XMS_ITS | Encounter Summary ---
Author Organization [facility] [place] [address] Care Team Providers Care Assembler Knife Name Role Phone Urbano Jimenez DO Primary Care Provider [phone] Reason for Referral * Diagnostic Test (Routine) - Closed Specialty Diagnoses / Procedures Referred By Humberto t Referred To Contact Cardiology Diagnoses Persistent atrial fibrillation Procedures Transesophageal Echocardiogram (DAVEY) Tal Diana MD [facility] [place] [place] [address] [facility] [place] [address] Referral ID Status Reason Start Date Expiration Date V isits Requested Visits Authorized [id number] Closed Specialty Service Requested 07/06/2022 10/03/2022 1 1 Encounter Details Date Type Department Care Team (Late st Contact Info) Description 04/08/2022 Orders Only Cardiology at [address] [address] Tal Diana MD [facility] [address] Persistent atrial fibrillation Social History Tobacco Use [...] AM EDT Hospital Encounter Non[place] [phone] Arrived documented as of this encounter Goals Goal Patient Goal Type Associated Problems Recent Progress Patient-Stated? Author DH Home Medication Compliance and Understanding Patient Facing Action Plan On track( 017 10:41 AM EDT) No Selena Cisneros, [facility] Note: Patient Goal: Clear hepatitis C Timeframe to meet goal: within 12 weeks of therapy documented as of this encounter Results * DAVEY W LMTD SPECTRAL DOPPLER COLOR DOPPLER (07/15/2022 12:43 PM EST) Anatomical Region Laterality Modality Cardiac Other 07/15/2022 10:3 4 AM EST Narrative 07/15/2022 5:24 PM EST ? Transesophageal Echocardiogram Report Name: ETHEL BOLDEN Patricia ?Study Date: 07/15/2022 10:34 AMBP: 146/86 mmHg ? Patient Location: OR^ORMN^A HR: 60 : 1950 ? Height: 180 cm ? Account: [id number] Age: 71 yrs ? Weight: 100 kg Gender: Male ?BSA: 2.2 m2 Ordering Physician: GENA CHERRY Referring Physician: UNKNOWN Performed By: Cathie Palmer MD Reason For Study: Atrial fibrillation History: Post-Watchman Interpreting Fellow: Cathie Palmer. Exam Location: [facility]. Interpretation Summary Post-Watchman DAVEY follow [...] - 07/15/2022 Transesophageal Echocardiogram Report Name: ETHEL BOLDEN Study Date: 0:34 AMBP: 146/86 mmHg Patient Location:OR^ORMN^A HR: 60 : 1950 Height: 180 cm Account: [id number] Age: 71 yrs Weight: 100 kg Gender: Male BSA: 2.2 m2 Ordering Physician: GENA CHERRY Referring Physician: UNKNOWN Performed By: Cathie Palmer MD Reason For Study: Atrial fibrillation History: Post-Watchman Interpreting Fellow: Cathie Palmer. Exam Location: [facility]. Interpretation Summary Post-Watchman DAVEY follow [...] fibrillation documented in this encounter Care Teams Assembler Knife Relationship Specialty Start Date End Date Urbano Jimenez DO [address] [place] [address] PCP - General Family Medicine 03/18/22 Hai STANLEY,Ruchi Nurse Clinic Transplant Surgery 07/30/15 documented as of this encounter
--- OUTSIDE RECORDS SUMMARY | 2024-02-14 11:17 | XMS_ITS | Encounter Summary ---
[place] [address] Care Team Providers Care Hide Buffer Name Role Phone Urbano Jimenez DO Primary Care Provider [phone] Encounter Details Date Type Department Care Team (Late st Contact Info) Description 04/30/2022 Telephone Cardiology at [address] [phone] Jena Lombardi Social History Tobacco Use Types Packs/Day Years [...] encounter Miscellaneous Notes * Telephone Encounter - Jena Lombardi - 04/30/2022 11:41 AM EDT Per pt's , Mara, pt would like to have his inclinic PM checks done at [facility]. Message sent to Timothy at [facility] asking for pt to be scheduled for next PM check in Aug 2022. Pt is having a watchman placed on 05/08/22 and we will be checking his device at that time. Jena Lombardi EP Scheduling documented in this encounter Plan of Treatment Upcoming Encounters Date Type Department Care Team (Late st Contact Info) Description 04/15/2024 10:00 AM EDT Hospital Encounter Non-[place] [address] Arrived documented as of this encounter Goals [...] on filedocumented in this encounter Care Teams Hide Buffer Relationship Specialty Start Date End Date Urbano Jimenez DO [address] [place] [address] PCP - General Family Medicine 03/18/22 Ruchi Valles RN Nurse Clinic Transplant Surgery 07/30/15 documented as of this encounter
--- OUTSIDE RECORDS SUMMARY | 2024-02-14 11:17 | XMS_ITS | Encounter Summary ---
Author Organization [facility] Address [facility] [address] Care Team Providers Care Marketing Intelligence Manager Name Role Phone Perrydeb Urbano Bell DO Primary Care Provider [phone] Encounter Details Date Type Department Care Team (Late st Contact Info) Description 03/18/2022 9:20 AM EDT Office Visit Cardiology at [address] [address] Tal Diana MD [facility] [place] [address] Atrial fibrillation with RVR - had flutter initially, then fib (Primary Dx); Hypertension secondary to other renal disorders; Coronary artery disease involving [place] heart, unspecified vessel or lesion type, unspecified whether angina present; Tachy-sakina syndrome; Pacemaker; Aortic stenosis, mild; Mitral valve insufficiency, unspecified etiology Social History Tobacco Use Types Packs/Day Years [...] Sign Reading Time Taken Comments Blood Pressure 133/67 03/18/2022 8:57 AM EDT Pulse 73 03/18/2022 8:57 AM EDT Temperature - - Respiratory Rate - - Oxygen Saturation 100% 03/18/2022 8:57 AM EDT Inhaled Oxygen Concentration - - Weight 102.4 kg (225 lb 11.2 oz) 03/18/2022 8:57 AM EDT Height 180.3 cm (5' 11) 03/18/2022 8:57 AM EDT Reported Body Mass Index 31.48 03/18/2022 8:57 AM EDT documented in this encounter Progress Notes * Sonia Ac MD - 03/18/2022 9:20 AM EDTSummary: Cardiology Clinic Images from the original note were not included. [facility] [place] [address] Structural Heart Disease New Patient Note Primary Care Provider: Urbano Denis DO Referring Provider: Byron Brown Reason for Consultation: Left atrial appendage closure Subjective: CARDIAC-RELEVANT PROBLEM LIST: -Atrial fibrillation/flutter -Hemmorhagic stroke while on anticoagulation -CAD s/p PCI -Kidney transplantation -DM -HTN HPI: Cody Bolden is a 71 y.o. male with relevant past medical history as above presents to cardiology clinic for discussing watchman device placement. He has a history of Atrial fibrillation/flutter and is intolerant of anticoagulation due to prior hemorrhagic stroke last February while on Eliquis. He has since been off of Eliquis and only taking aspirin 81mg daily. Patient was referred to usfor stroke risk mitigation with the watchman device placement. NCDR Registry Data Note Type Chronic/Paroxysmal AF Hx of Cardioversion: No/Yes Anti-Arrhythmics: No/Yes Sleep Apnea: No/Yes [id number] ( HTN 1, Age 1, DM 1, Stroke 2, Vasc Age 1) HAS-BLED 6 (HTN 1, Stroke 1, Nader Bleed 1, Labile INR 1, >65 yrs 1, Med Asa ) ROS: 12+ ROS reviewed and negative except as detailed in the HPI. PAST MEDICAL HISTORY: Patient Active Problem List Diagnosis ??? Aortic stenosis, mild ??? Mitral regurgitation Moderate ??? Pacemaker 01/31/2022 Successful implantation of a dual chamber Medtronic pacemaker Medtronic Sadorus XT DR MRI Model ??? Tachy-sakina syndrome ??? Postprandial RUQ pain ??? Gall stones ??? Tobacco abuse counseling ??? Herniated lumbar intervertebral disc ??? CAD (coronary artery disease) 01/31/2019 NSTEMI in setting of atrial flutter with 2:1 conduction 02/01/2019 TTE: est LVEF 30%. 02/02/2019 Left heart catheterization, LVEDP 26 mmHg, R dominant, PCI of 95% ostial LCX with 2.50 x 12 mm Resolute FELY (CUATE), otherwise only mild diffuse disease. 02/07/2019 TTE: LVEF 56% by biplane MOD, estimated 40-50%, with SWMA. ??? Left leg pain ??? Atrial fibrillation with RVR - had flutter initially, then fib ZIO Study 03/14/2021: Duration of recordind 23h [...] aortic stenosis. There is moderate mitral regurgitation. ??? Hydronephrosis ??? Obesity (BMI 30.0-34.9) ??? Debility ??? Pain of right lower extremity ??? Vitamin D deficiency ??? 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 longterm current use of 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 drug ??? CAH (chronic active hepatitis) ??? Type 2 diabetes mellitus with complication, without long-term current use of insulin ??? H/O kidney transplant ??? Aftercare following organ transplant ??? Dehydration ??? Ureteral stricture ??? Enterococcal bacteremia ??? Other complication of kidney transplant ??? Hepatitis C virus infection ??? 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 Hypertension ??? DJD (degenerative joint disease) ??? Hematuria PAST SURGICAL HISTORY: Past Surgical History: Procedure Laterality Date ??? JOINT REPLACEMENT new right knee ??? PRG FLUOROSCOPY EXAM UP TO 1 HR Y OR [facility] PROV N/A 05/10/2020 FLUOROSCOPY (WRVU 0.17) performed by Joseph Ang MD at [facility] OR ??? PRO ANASTOMOSIS, AV, ANY SITE Left 05/09/2015 AV FISTULA CREATION, DIRECT HEMODIALYSIS, ANY SITE, EG ASHWINI FISTULA UPPER EXTREMITY performed by Que Amaro MD at [facility] OR ??? PRO CYSTOURETHROSCOPY, URETER CATHETER Left 06/17/2018 CYSTO, RETROGRADE, URETEROPYELOGRAPHY (WRVU 2.37) performed by Edinson Grider III, MD at [facility] ??? PRO LAMINEC/FACETECT/FORAMIN, LUMBAR 1 SEG N/A 05/10/2020 LAMINECTOMY, FACETECTOMY & FORAMINOTOMY,LUMBAR, ONE LEVEL (WRVU 15.37) performed by Joseph Ang MD at [facility] MA[facility] OR ??? PRO LAMINOTOMY, LUMBAR DISK, 1 [...] at [facility] OR ??? PRO TOTAL KNEE ARTHROPLASTY Right 11/25/2017 TOTAL KNEE ARTHROPLASTY (WRVU 20.72) performed by Breezy Dale MD at [facility] OR ??? PRO TRANSPLANT, PREP CADAVER RENAL GRAFT N/A 09/16/2015 @PREPARATION CADAVERIC RENAL ALLOGRAFT performed by Franko Larkin MD at [facility] OR ??? PRO TRANSPLANTATION OF KIDNEY N/A 09/16/2015 @KIDNEY TRANSPLANT, WITHOUT RECIPIENT NEPHRECTOMY performed by Franko Larkin MD at [facility] OR ??? TISSUE TRANSFER kidney ??? US RENAL TRANSPLANT LEFT Left 01/31/2019 US Renal Transplant Left 01/31/2019 [facility] RAD ULTRASOUND ??? US RENAL TRANSPLANT LEFT Left 02/07/2019 US Renal Transplant Left 02/07/2019 [facility] RAD ULTRASOUND SOCIAL HISTORY: reports that he has been smoking cigars. He has been smoking about 0.00 packs per day for the past 30.00 years. He has never used smokeless tobacco. He reports current drug use. Frequency: 7.00 times per week. Drug: Marijuana. He reports that he does not drink alcohol. FAMILY HISTORY: family history includes Arrhythmia in his mother; Chronic Obstructive Pulmonary Disease in his mother; Heart Disease in his father. Medications: Current Outpatient Medications Medication Sig Dispense Refill ??? metoprolol succinate XL (Toprol-XL) 50 mg [...] 2 times daily. 180 tablet 3 ??? ascorbic acid, Vitamin C, [...] Tablet Take 137 mcg by mouth daily. Allergies: Reviewed and updated as appropriate in the medical record. Objective: Vitals: Vitals: 03/18/22 0857 BP: 133/67 Patient Position: Sitting Pulse: 73 SpO2: 100% Weight: 102.4 kg (225 lb 11.2 oz) Height: 180.3 cm (5' 11) Physical Exam: General: Pleasantmale, no acute distress HEENT: Normocephalic, atraumatic, benign NECK: Supple, no masses, FROM CV: RRR, no m/r/g, no ventricular heaves RESP: CTAB, moving air well, symmetric chest excursion GI: Soft, nd, nttp EXT: No cyanosis/clubbing, no edema, preserved distal pulses NEURO: No gross focal deficits, normal gait PSYC: Appropriate mood and affect, alert and oriented DERM: No rash, wwp Diagnostics: Lab Results Component Value Date NA 143 02/01/2022 K 3.7 02/01/2022 CL 108 (H) 02/01/2022 CO2 23 02/01/2022 BUN 22 (H) 02/01/2022 CREATININE 1.38 02/01/2022 GLUCOSE 104 02/01/2022 GLUCFASTING 153 (H) 09/12/2019 CALCIUM 8.4 (L) 02/01/2022 ESTGFR 54 (L) 02/01/2022 Lab Results Component Value Date WBC 8.7 01/30/2022 HGB 14.3 01/30/2022 HCT 41.7 01/30/2022 MCV 90.3 01/30/2022 PLATELET 219 01/30/2022 Lab Results Component Value Date PROBNP 4,113 (H) 01/30/2022 Lab Results Component Value Date CK 127 01/31/2019 TROPONINT 0.05 (H) 02/07/2019 Assessment and Plan: Cody Bolden is a 71 y.o. male who presents to the cardiology clinic in follow up of their watchman device placement candidacy. NYHA Class 1. CCS Class 0. Patient is a candidate for Watchman device and is interested in moving forward. I have personally discussed the procedure, including benefits and risks, with the patient who agrees to proceed. The indications for the catheterization, the expected benefits, and the possible risks were reviewed in detail with the patient. The procedural consent includes general anesthesia, trans-esophageal echo, trans-thoracic echo, intracardiac echo, left heart catheterization via trans septal puncture and left atrial appendage occlusion with device. Potential complications include but are not limited to device embolization, vessel or chamber perforation, stroke. The potential for , heart attack, stroke, kidney failure, bleeding, allergic reaction, vascular complications and infection as well as otherpotential complications were reviewed. Additional risks include device embolization, and chamber orvessel perforation. If clot is identified in the left atrium or surrounding tissues during the procedure, the procedure may be aborted. Alternatives were discussed and the patient's questions were answered in full. Following this discussion, the patient consented to the procedure. Post Procedure Anti-Thrombotic Management Patient to be discharged on Apixaban and ASA with a plan to have 45 day assessment with DAVEY. If a good seal is confirmed plan to transition to either Eliquis + aspirin for 45 days followed by DAPT for 6 months, or DAPT post procedure until 6 months. This will be decided after discussion withneurologist Dr. Penaloza ([phone]) whom we left a message for recommendations. We also asked about whether brain imaging will be required prior to proceeding. After 6 months plan is to transition to ASA indefinitely Follow up: Sonia Ac MD Thank you for the opportunity to participate in this patient's cardiovascular care. I have seen the patient in person and reviewed the fellow's above history and I agree with the details as written. The assessment and plan were formulated in discussion with me and I agree with them as documented. 71 yo male at high stroke risk who has a history of prior ICH providing a rationale for non- pharmacologic stroke prevention strategy. Using share decision-making, I outlined to the patient along with his the rationale for BATOOL-C Watchman. In addition, I reviewed the procedural risk including access site bleeding requiring blood transfusion and/or surgery, CHERELLE, Stroke, cardiac perforation requiring percutaneous drainage and/or emergent 'open heart' surgery and device embolization requiring 'open heart' and/or 'open belly' surgery. The patient and his appear to understandand wish to proceed. I was able to speak with his primary neurologist at [facility], Dr. Liu, today by phone. No absolute contraindication for abbreviated course of DAPT or OAC. No need for repeat surv eillance head imaging from a neurologic perspective before BATOOL-C closure. Appreciate the partnership/collaboration in his care. Message sent to our scheduling office to facilitate day/time for him tocome in for Watchman as Screen on Table. Plan for DAVEY at 45 days surveillance. Tal Diana MD Director, Structural Heart Disease Pager [phone] documented in this encounter Plan of Treatment Upcoming Encounters Date Type Department Care Team (Late st Contact Info) Description 04/15/2024 10:00 AM EDT Hospital Encounter Non[place] [address] Arrived documented as of this encounter Goals Goal Patient Goal Type Associated Problems Recent Progress Patient-Stated? Author DH Home Medication Compliance and Understanding Patient Facing Action Plan On track( 017 10:41 AM EDT) Selena Scott, [facility] Note: Patient Goal: Clear hepatitis C Timeframe to meet goal: within 12 weeks of therapy documented as of this encounter Visit Diagnoses Diagnosis Atrial fibrillation with RVR - had flutter initially, then fib- Primary Atrial fibrillation Hypertension secondary to other renal disorders Coronary artery disease involving [place] heart, unspecified vessel or lesion type, unspecified whether angina present Tachy-sakina syndrome Sinoatrial node dysfunction Pacemaker Cardiac pacemaker in situ Aortic stenosis, mild Aortic valve disorders Mitral valve insufficiency, unspecified etiology documented in this encounter Care Teams Marketing Intelligence Manager Relationship Specialty Start Date End Date Urbano Jimenez DO [address] [place] [address] PCP - General Family Medicine 03/18/22 Ruchi Valles RN Nurse Clinic Transplant Surgery 07/30/15 documented as of this encounter
--- OUTSIDE RECORDS SUMMARY | 2024-02-14 11:17 | XMS_ITS | Encounter Summary ---
Author Organization [facility] [place] [address] Care Team Providers Care Transport Truck Driver Name Role Phone Urbano Jimenez DO Primary Care Provider Encounter Details Date Type Department Care Team (Late st Contact Info) Description 05/08/2022 Orders [place] [phone] Yessica Johnson PA [facility] [place] [address] Atrial fibrillation with RVR Social History Tobacco Use Types Packs/Day Years [...] AM EDT Hospital Encounter Non-[place] [phone] Arrived documented as of this encounter Goals Goal Patient Goal Type Associated Problems Recent Progress Patient-Stated? Author Home Medication Compliance and Understanding Patient Facing Action Plan On track( 017 10:41 AM EDT) No Blayne, Selena M, [facility] Note: Patient Goal: Clear hepatitis C Timeframe to meet goal: within 12 weeks of therapy documented as of this encounter Visit Diagnoses Diagnosis Atrial fibrillation with RVR Atrial fibrillation documented in this encounter Care Teams Transport Truck Driver Relationship Specialty Start Date End Date Urbano Jimenez DO [address] [place] [address] PCP - General Family Medicine 03/18/22 Ruchi Valles RN Nurse Clinic Transplant Surgery 07/30/15 documented as of this encounter
--- OUTSIDE RECORDS SUMMARY | 2024-02-14 11:17 | XMS_ITS | Encounter Summary ---
[place] [address] Care Team Providers Care Newspaper Illustrator Name Role Phone Urbano Denis DO Primary Care Provider [phone] Encounter Details Date Type Department Care Team (Late st Contact Info) Description 02/18/2022 Telephone Cardiology at [address] [phone] Marisela Bob RN Social History Tobacco Use Types Packs/Day [...] encounter Miscellaneous Notes * Telephone Encounter - Byron Brown MD - 02/18/2022 4:25 PM EDTSummary: telephone call Telephone Call : Cardiology ?? 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 History: 71 yo male with history as above. Notes that since his PPM placement he has felt more fatigued. Recent visit to his local ER ([facility]) with increased pericardial effusion after pacemaker. Patient statesthat he feels like something is not right and he is very weak/dizzy. The patient plans to be evaluated first at [facility] again with possible transfer to [facility] if needed. Would plan to repeat limited echo to assess for pericardial effusion after recent pacer and possible device interrogation. 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 He is being worked up at [facility] for an BATOOL occluder ([place]) in Mar 2022. Plan: -going to his local ER for initial evaluation -rule out pericardial tamponade -interrogate pacer for arrhythmia -standard labs/vitals -evaluate for need to transfer down to [facility] * Telephone Encounter - Marisela Bob RN - 02/18/2022 12:50 PM EDT RTC to Mrs Bolden regarding her phone call stating her , Mr Bolden was just seen in the ER at [facility], complaint of fatique and was found to be in Atrial Fibrillation. See note of Dr Chang, forPlan. Mrs Bolden has concerns about the number and the timing of Mr Bolden's visits. Mrs Bolden wasgiven the EP team RN contact telephone number, as well as, she states she has the telephone contactto the [facility]. Mrs Bolden is requesting to ask Dr Brown, if he can change his visit to the telehealth visit. Sheis also asking why Mr Bolden is seeing Dr Diana, the Interventional team, and noted in chart previous PCI procdure done. Mrs Bolden is requesting if Mr Bolden's appointment can be coordinated, together with testing, or if testing can be done locally. Assured we will try to coordinate testing with appointments, or his testing can be done locally. Let Mrs Bolden know we will be contacting her. The patient indicates understanding of these issues and agrees with the plan. Marisela Bob (Jodie), RN, BSN Cardiology Ambulatory [facility] documented in this encounter Plan of Treatment Upcoming Encounters Date Type Department Care Team (Late st Contact Info) Description 04/15/2024 10:00 AM EDT Hospital Encounter Non-Invasive [place] [address] Arrived documented as of this encounter Goals Goal Patient Goal Type Associated Problems Recent Progress Patient-Stated? Author [facility] Home Medication Compliance and Understanding Patient Facing Action Plan On track( 017 10:41 AM EDT) Selena Scott, [facility] Note: Patient Goal: Clear hepatitis C Timeframe to meet goal: within 12 weeks of therapy documented as of this encounter Visit Diagnoses Not on filedocumented in this encounter Care Teams Newspaper Illustrator Relationship Specialty Start Date End Date Urbano Denis DO [address] [place] [address] [address] [place] [address] PCP - General 09/03/12 03/17/22 Ruchi Valles RN Nurse Clinic Transplant Surgery 07/30/15 documented as of this encounter
--- OUTSIDE RECORDS SUMMARY | 2024-02-14 11:17 | XMS_ITS | Encounter Summary ---
Author Organization [facility] [place] [address] Care Team Providers Care Grocery Clerk Name Role Phone Urbano Denis DO Primary Care Provider [phone] Encounter Details Date Type Department Care Team (Late st Contact Info) Description 02/16/2022 [place] [phone] 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 Notes that since his PPM placement he has felt more fatigued. No chest pain. Bedside echo in the ED with mild-moderate pericardial effusion (trivial prior to PPM placement). He has no edema, no dyspnea with exertion. He had his device interrogated and over the pastweek was having increasing episodes of AF with RVR with otherwise normally functioning pacemaker. Per review by ED provider he appears to be otherwise well. Pertinent diagnostic findings: Vitals: BP 120/65 HR 65 RR 18 SaO2 97% RA EKG: Atrial Fibrillation with occasional V-paced beats beats, rate 63. Troponin negative Hgb stable. Bedside TTE by provider with mild effusion. Plan: - Increase metoprolol to 50 mg BID. - Messaged the scheduling secretaries for an YASMIN appointment in cardiology clinic for further evaluation. - Would benefit from a formal TTE. If discharged from [facility] will attempt to arrange at [facility]. Yash Chang MD 02/16/2022 2:13 PM documented in this encounter Plan of Treatment Upcoming Encounters Date Type Department Care Team (Late st Contact Info) Description 04/15/2024 10:00 AM EDT Hospital Encounter Non[place] [phone] Arrived documented as of this encounter Goals Goal Patient Goal Type Associated Problems Recent Progress Patient-Stated? Author [facility] Medication Compliance and Understanding Patient Facing Action Plan On track( 017 10:41 AM EDT) No Selena Cisneros, [facility] Note: Patient Goal: Clear hepatitis C Timeframe to meet goal: within 12 weeks of therapy documented as of this encounter Visit Diagnoses Not on filedocumented in this encounter Care Teams Grocery Clerk Relationship Specialty Start Date End Date Urbano Denis DO [address] [place] [address] PCP - General 09/03/12 03/17/22 Ruchi Valles RN Nurse Clinic Transplant Surgery 07/30/15 documented as of this encounter
--- OUTSIDE RECORDS SUMMARY | 2024-02-14 11:17 | XMS_ITS | Encounter Summary ---
Author Organization [facility] [place] [address] Care Team Providers Care Manager Of Business Operations Name Role Phone PerrydebUrbano DO Primary Care Provider [phone] Encounter Details Date Type Department Care Team (Late st Contact Info) Description 04/01/2022 Orders Only Cardiology at [address] [phone] Mayco Barnes PA [facility] [address] Atrial fibrillation with RVR Social History Tobacco [...] AM EDT Hospital Encounter Non-[place]vasive [place] [phone] Arrived documented as of this encounter Goals Goal Patient Goal Type Associated Problems Recent Progress Patient-Stated? Author [facility] Medication Compliance and Understanding Patient Facing Action Plan On track( 017 10:41 AM EDT) No Giovani Cisnerosn M, [facility] Note: Patient Goal: Clear hepatitis C Timeframe to meet goal: within 12 weeks of therapy documented as of this encounter Visit Diagnoses Diagnosis Atrial fibrillation with RVR Atrial fibrillation documented in this encounter Care Teams Manager Of Business Operations Relationship Specialty Start Date End Date Urbano Jimenez DO [address] [place] [address] PCP - General Family Medicine 03/18/22 Ruchi Valles RN Nurse Clinic Transplant Surgery 07/30/15 documented as of this encounter
--- OUTSIDE RECORDS SUMMARY | 2024-02-14 11:17 | XMS_ITS | Encounter Summary ---
[place] [address] Care Team Providers Care Game Moderator Name Role Phone Urbano Jimenez Ray KIRBY Primary Care Provider [phone] Reason for Visit * Reason Onset Date Comments Medication Refill 04/28/2022 Encounter Details Date Type Department Care Team (Late st Contact Info) Description 04/28/2022 Refill [place] [phone] Marisela Metcalf RN Other complication of kidney transplant; Prophylactic immunotherapy Social History Tobacco Use Types Packs/Day Years [...] AM EDT Hospital Encounter Non-Invasive [place] [address] Arrived documented as of this encounter Goals Goal Patient Goal Type Associated Problems Recent Progress Patient-Stated? Author [facility] Medication Compliance and Understanding Patient Facing Action Plan On track( 017 10:41 AM EDT) No Selena Cisneros [facility] Note: Patient Goal: Clear hepatitis C Timeframe to meet goal: within 12 weeks of therapy documented as of this encounter Visit Diagnoses Diagnosis Other complication of kidney transplant Prophylactic immunotherapy Need for prophylactic immunotherapy documented in this encounter Care Teams Game Moderator Relationship Specialty Start Date End Date Urbano Jimenez DO [address] [place] [address] PCP - General Family Medicine 03/18/22 Ruchi Valles RN Nurse Clinic Transplant Surgery 07/30/15 documented as of this encounter
--- OUTSIDE RECORDS SUMMARY | 2024-02-14 11:17 | XMS_ITS | Encounter Summary ---
Author Organization [facility] [place] [address] Care Team Providers Care Software Developer Name Role Phone Urbano Denis DO Primary Care Provider [phone] Reason for Referral * Consultation (Routine) - Closed Specialty Diagnoses / Procedures Referred By Contact Referred To Contact Electrophysiology / Cardiology Diagnoses Tachy-sakina syndrome Tachy-sakina syndrome Leela Acosta MD [facility] [place] [address] [facility] [address] [place] [phone] Referral ID Status Reason Start Date Expiration Date V isits Requested Visits Authorized [id number] Closed Consult, Test & Treat 02/04/2022 02/04/2023 1 1 Encounter Details Date Type Department Care Team (Late st Contact Info) Description 02/04/2022 Orders [place] [address] Leela Acosta MD [facility] [place] [address] Tachy-sakina syndrome (Primary Dx) Social History Tobacco Use Types [...] AM EDT Hospital Encounter Non-Invasive [place] [address] Arrived Scheduled Referrals Name Type Priority Associated Diagnoses Order Schedule Referral to Cardiac Electrophysiology Outpatient Referral Routine Tachy-sakina syndrome Ordered: 02/04/2022 documented as of this encounter Goals Goal Patient Goal Type Associated Problems Recent Progress Patient-Stated? Author DH Home Medication Compliance and Understanding Patient Facing Action Plan On track( 017 10:41 AM EDT) No Selena Cisneros, [facility] Note: Patient Goal: Clear hepatitis C Timeframe to meet goal: within 12 weeks of therapy documented as of this encounter Visit Diagnoses Diagnosis Tachy-sakina syndrome- Primary Sinoatrial node dysfunction documented in this encounter Care Teams Software Developer Relationship Specialty Start Date End Date Urbano Denis DO [address] [place] [address] PCP - General 09/03/12 03/17/22 Ruchi Valles RN Nurse Clinic Transplant Surgery 07/30/15 documented as of this encounter
--- OUTSIDE RECORDS SUMMARY | 2024-02-14 11:17 | XMS_ITS | Encounter Summary ---
Author Organization [facility] [place] [address] Care Team Providers Care Natural Resources Manager Name Role Phone Urbano Jimenez DO Primary Care Provider [phone] Reason for Visit * Auth/Cert Specialty Diagnoses / Procedures Referred By Contac t Referred To Contact Diagnoses Persistent atrial fibrillation [I48.19] Watchman Procedures PRO PERQ CLSR TCAT L ATR APNDGE W/ENDOCARDIAL IMPLNT CARDIAC CATHETERIZATION @PERQ TRANSCATH CLOSURE LEFT ATRIAL APPENDAGE W ENDOCARDIAL IMPLANT, INC RAD S&I (WRVU 14) TRANSESOPHAGEAL ECHO DURING CATH/EP PROCEDURE Tal Diana MD [facility] [place] [address] [facility] Referral ID Status Reason Start Date Expiration Date Visits Re quested Visits Authorized [id number] 1 1 Encounter Details Date Type Department Care Team (Late st Contact Info) Description 05/08/2022 11:40 AM EDT Anesthesia [place] [address] Aldo Montes MD [facility] [place] [address] Bladimir Zee CRNA [facility] [address] Anesthesia Record Procedure Summary Procedure Name Responsible Anesthesiologist Anesthesia Start Time Anesthesia Stop Time CARDIAC CATHETERIZATION Aldo Montes MD 05/08/22 1140 05/08/22 1311 Events Date Time Event Comment 05/08/2022 1103 1140 Start 1143 AN Verify 1143 An Start Data 1152 An Induction 1155 An Intubation 1157 Anesthesia Ready 1302 Extubation/LMA Out 1307 an stop data 1311 Recovery or ICU Handoff Alanna ent care was transferred to the destination unit staff after review of the patient's medical history, current anesthetic/surgical status and plan, according to the Provider Handoff Checklist. 1311 Stop Meds Name Total Propofol 240 mg Rocuronium 70 mg PHENYLephrine 240 mcg Ondansetron 4 mg ceFAZolin 2 g PHENYLephrine INF 2,920 mcg Heparin 8,000 Units Sugammadex 400 mg lactated ringers infusion 500 mL * Agents Name O2 Air N2O Sevoflurane (et) * Blood No blood administrations on file. Lines, Drains, and Airways Type Details Placement Removal Hemodialysis AV Access Device - Single Lumen 02/02/19; 1031; upper arm, left 02/02/19 1031 by Sharon Ruth, JADEN Incision 01/31/22; 1210; Righ t; chest 01/31/22 1210 by Steffen Mora, JADEN (RETIRED) Peripheral IV Line - Single Lumen 05/08/22; 0934; median cubital vein (antecubital fossa), right; [id number]-[id number]-[id number] catheter system; Anatomical Landmarks; 20 gauge; Jeffy Urrutia RN; distraction, intradermal injection, tolerated well; 05/09/22; 1200 05/08/22 0934 by Gibson Urrutia RN 05/09/22 1200 by Rhoda Velasquez RN ETT Mask Ventilation: Adjunct (2); ETT Type: Cuffed, Oral; ETT Size: 7.5 mm; Mac Blade: 4; Notes: Asleep, Pre-O2, Stylette; Attempts: 1; Laryngoscopy Grade: 1; ETT Placement Verified By: Auscultation, Capnometry, Visual; Secured at Teeth: 23 cm; Inserted by: Yayo LYNCH; Removal Date: 05/08/22; Removal Time: 1304 05/08/22 1155 by Bladimir Zee CRNA 05/08/22 1304 by Bladimir Zee CRNA LDA Cath/EP Sheath 05/08/22; 1222; 14 Lebanese (Fr); Right; Femoral; Venous 05/08/22 1222 by Betzaida Butcher RN 05/08/22 1250 by Betzaida Butcher RN documented in this encounter Social History [...] OR Notes * Anesthesia Postprocedure Evaluation - Aldo Montes MD - 05/08/2022 1:36 PM EDT Department of Anesthesiology Post-procedure Note Patient: Cody Bolden Procedure Summary Date: 05/08/22 Room / Location: ADMISSION DISCHARGE RN [address] [place] [address] CATH LABS Anesthesia Start: 1140 Anesthesia Stop: 1311 Procedures: CARDIAC CATHETERIZATION (N/A ) @PERQ TRANSCATH CLOSURE LEFT ATRIAL APPENDAGE W ENDOCARDIAL IMPLANT, INC RAD S&I (WRVU 14) (N/A) TRANSESOPHAGEAL ECHO DURING CATH/EP PROCEDURE (N/A ) Diagnosis: Persistent atrial fibrillation (Persistent atrial fibrillation [I48.19]) (Watchman) Providers: Tal Diana MD; Damien Ellis MD Responsible Provider: Aldo Montes MD Anesthesia Type: general ASA Status: 4 All Anesthesia Providers: Anesthesiologist: Aldo Montes MD NET DEVELOPER ARCHITECT: Bladimir Zee CRNA Vitals Value Taken Time BP 120/90 05/08/22 1525 Temp Pulse 61 05/08/22 1528 Resp 16 05/08/22 1528 SpO2 97 % 05/08/22 1528 Pain Level 0 05/08/22 1515 Vitals shown include unvalidated device data. [facility] Level of Consciousness: Conscious but Sleepy Pain Management: Satisfactory Analgesia PONV: None Cardiovascular Status: Hemodynamically Stable Respiratory Status: Stable Respiratory Status and Supplemental O2 (NC or FM) Postoperative Fluid Status: Intravascular EUvolemia Possible Anesthetic Complications: NONE apparent at time of evaluation Final Primary Anesthesia Type: General (The anesthetic type performed was the same as planned.) Comments: * Anesthesia Preprocedure Evaluation - Aldo Montes MD - 05/07/2022 8:49 PM EDT Images from the original note were not included. Pre-Anesthesia Evaluation for: Cody Bolden a 71 y.o. male. Procedure(s): CARDIAC CATHETERIZATION @PERQ TRANSCATH CLOSURE LEFT ATRIAL APPENDAGE W ENDOCARDIAL IMPLANT, INC RAD S&I (WRVU 14) TRANSESOPHAGEAL ECHO DURING CATH/EP PROCEDURE Patient Active Problem List Diagnosis Date Noted ??? Aortic stenosis, mild 03/18/2022 ??? Mitral [...] deficiency 09/20/2017 ??? Prophylactic immunotherapy 09/22/2016 ??? intermediate frame tender current use of 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 drug 09/22/2016 ??? [...] PRG FLUOROSCOPY EXAM UP TO 1 HR [facility] OR [facility] PROV N/A 05/10/2020 FLUOROSCOPY (WRVU 0.17) performed by Joseph Ang MD at [facility] MAIN OR ??? PRO ANASTOMOSIS, AV, ANY SITE Left 05/09/2015 AV FISTULA CREATION, DIRECT HEMODIALYSIS, ANY SITE, EG ASHWINI FISTULA UPPER EXTREMITY performed by Que Amaro MD at [facility] MAIN OR ??? PRO CYSTOURETHROSCOPY, URETER CATHETER Left 06/17/2018 CYSTO, RETROGRADE, URETEROPYELOGRAPHY (WRVU 2.37) performed by Edinson Grider III, MD at [facility] FR[facility]IS ??? PRO LAMINEC/FACETECT/FORAMIN, LUMBAR 1 SEG N/A 05/10/2020 LAMINECTOMY, FACETECTOMY & FORAMINOTOMY,LUMBAR, ONE LEVEL (WRVU 15.37) performed by Joseph Ang MD at [facility] MAIN OR ??? PRO LAMINOTOMY, LUMBAR DISK, 1 INTRSP N/A 05/10/2020 LAMINOTOMY, DECOMPRESSION, FORAMINOTOMY, LUMBAR (WRVU 13.18) performed by Joseph Ang MD at [facility] OR ??? PRO MICROSURG TECHNIQUES, REQ OPER MICROSCOPE N/A 05/10/2020 MICROSCOPE USE (WRVU 3.46) performed by Joseph Ang MD at [facility] OR ??? PRO REIMPLANT URETER, SINGLE URETER Left 05/20/2016 @URETERONEOCYSTOSTOMY ANASTOMOSIS OF SINGLE URETER TO BLADDER performed by Santosh Arredondo MD at [facility] OR ??? PRO REIMPLANT URETER, SINGLE URETER N/A 05/20/2016 @URETERONEOCYSTOSTOMY ANASTOMOSIS OF SINGLE URETER TO BLADDER performed by Que Amaro MD at [facility] OR ??? PRO TOTAL KNEE ARTHROPLASTY Right 11/25/2017 TOTAL KNEE ARTHROPLASTY (WRVU 20.72) performed by Breezy Dale MD at [facility] OR ??? PRO TRANSPLANT, PREP CADAVER RENAL GRAFT N/A 09/16/2015 @PREPARATION CADAVERIC RENAL ALLOGRAFT performed by Franko Larkin MD at [facility] OR ??? PRO TRANSPLANTATION OF KIDNEY N/A 09/16/2015 @KIDNEY TRANSPLANT, WITHOUT RECIPIENT NEPHRECTOMY performed by Franko Larkin MD at [facility] OR ??? TISSUE TRANSFER kidney ??? US RENAL TRANSPLANT LEFT Left 01/31/2019 US Renal Transplant Left 01/31/2019 [facility] RAD ULTRASOUND ??? US RENAL TRANSPLANT LEFT Left 02/07/2019 US Renal Transplant Left 02/07/2019 [facility] RAD ULTRASOUND Social History Tobacco Use ??? Smoking status: Light Tobacco Smoker Packs/day: 0.00 Years: 30.00 Pack years: 0.00 Types: Cigars Last attempt to quit: 01/02/2015 Years since quittin.3 ??? Smokeless tobacco: Never Used ??? Tobacco comment: cigars, one weekly Substance Use Topics ??? Alcohol use: No Social History Substance and Sexual Activity Drug Use Yes ??? Frequency: 7.0 times per week ??? Types: Marijuana Allergies Allergen Reactions ??? [place] Medications: MAR and/or home medications have been reviewed. Physical Exam: Preprocedure Vitals Current as of 05/07/222048 No BP, pulse, respiration, SpO2, or temperature recorded. Height: Weight: BMI: IBW: Airway Assessment: Mallampati: I TM distance: >3 FB Cardiovascular Assessment: Rhythm: regular Rate: normal Pulmonary Assessment: unlabored breathing Dental Assessment: Misc Assessment: IV access: Peripheral line Other exam findings: No access sleeve on LUE Last Filed Perioperative Cognitive Screening None Anesthesia Plan: ASA 4 general, with a(n) intravenous induction PRELIM NOTE 71 y.o.male (102 kg) h/o HTN, DM2, GERD, CAD s/p PCI ESRD s/p renal transplant, prior niCM (thoughttachy-mediated), afib and prior hemorrhagic stroke when previously on a/c now scheduled for LAAO placement Patient denies significant GERD, recent URI symptoms and is appropriately NPO. TTE (02/2022) Left ventricle is mildly dilated. Wall thickness is moderately increased. Left ventricular systolic function is mildly reduced. The left ventricular ejection fraction is 45% by Elizabeth's biplane. There is global hypokinesis with regional variation. The right ventricle is of normal size. Right ventricular systolic function is mildly decreased. Estimated PASP is 33 mHg. There is mild aortic stenosis. There is moderate mitral regurgitation. Activity status: ADR: -- [place] Recent Labs: Lab Results Component Value Date WBC 7.9 03/18/2022 RBC 4.83 03/18/2022 HGB 14.9 03/18/2022 HCT 42.9 03/18/2022 MCV 88.8 03/18/2022 MCH 30.8 03/18/2022 MCHC 34.7 03/18/2022 PLATELET 248 03/18/2022 RDWCV 13.0 03/18/2022 Lab Results Component Value Date/Time NA 142 03/18/2022 10:58 AM K 4.5 03/18/2022 10:58 AM CL 102 03/18/2022 10:58 AM CO2 30 03/18/2022 10:58 AM BUN 22 (H) 03/18/2022 10:58 AM CREATININE 1.55 (H) 03/18/2022 10:58 AM T&S Status: Anesthestic Hx: multiple GA without issues Airway Hx: Mac 4, G1V, Igel 4 Plan: GETA, PIV access The patient was informed of the risks, benefits and alternatives of anesthesia. These risks included, but were not limited to, prolonged intubation, post- operative nausea and/or vomiting, pain, sore throat, dental/lip trauma, and other rare but serious complications such as major organ damage, awareness, severe allergic reactions, position-related nerve injuries, and need blood transfusions. The patient accepts that additional procedures and/or escalation of care may be necessary as dictated bythe course of the procedure/anesthetic. All questions sought and answered. Consent was signed and placed in chart. Region - Other Informed Consent: Anesthetic plan and risks discussed with patient. Plan discussed with NET DEVELOPER ARCHITECT. Anesthesia Screening documented in this encounter Plan of Treatment Upcoming Encounters Date Type Department Care Team (Late st Contact Info) Description 04/15/2024 10:00 AM EDT Hospital Encounter Non-[place] [id number] Arrived documented as of this encounter Goals [...] MAR Action Action Date Dose Rate Site ceFAZolin (Ancef) 1 g in dextrose 5% 50 mL infusion Intravenous, PRN, Starting on Laura 05/08/22 at 1157, Until Laura 05/08/22 at 1426, Administer over 30 Minutes, Anesthesia Intra-op Given 05/08/2022 11:57 AM EDT 2 g heparin (porcine) (1,000 units/mL) injection Intravenous, PRN, Starting on Laura 05/08/22 at 1227, Until Laura 05/08/22 at 1426, Anesthesia Intra-op, Routine Given 05/08/2022 12:45 PM EDT 1,000 Units Given 05/08/2022 12:30 PM EDT 2,000 Units Given 05/08/2022 12:27 PM EDT 5,000 Units lactated ringers infusion 1,000 mL, at 100 mL/hr, Intravenous, CONTINUOUS, Starting on Laura 05/08/22 at 0945, Until Laura 05/08/22 at 1848, Day of Surgery (Day of Procedure) Restarted 05/08/2022 11:40 AM EDT New Bag 05/08/2022 9:35 AM EDT 1,000 mLs 100 mL/hr ondansetron (pf) (Zofran) (2 mg/mL) injection Intravenous, PRN, Starting on Laura 05/08/22 at 1258, Until Laura 05/08/22 at 1426, Anesthesia Intra-op, Routine Given 05/08/2022 12:58 PM EDT 4 mg PHENYLephrine (Kristofer-Synephrine) (80 mcg/mL) in sodium chloride 0.9% 250 mL infusion Intravenous, CONTINUOUS PRN, Starting on Laura 05/08/22 at 1208, Until Laura 05/08/22 at 1426, Anesthesia Intra-op, Routine Rate/Dose Change 05/08/2022 12:12 PM EDT 60 mcg/min 45 mL/hr New Bag 05/08/2022 12:08 PM EDT 40 mcg/min 30 mL/hr PHENYLephrine in NS (PF) (KRISTOFER-SYNEPHRINE) 0.8 mg/10 mL (80 mcg/mL) multi-dose injection Syrg Intravenous, PRN, Starting on Laura 05/08/22 at 1208, Until Laura 05/08/22 at 1426, Anesthesia Intra-op, Routine Given 05/08/2022 12:12 PM EDT 80 mcg Given 05/08/2022 12:10 PM EDT 80 mcg Given 05/08/2022 12:08 PM EDT 80 mcg propofoL (Diprivan) 10 mg/mL bolus injection (Anesthesia) Intravenous, PRN, Starting on Laura 05/08/22 at 1152, Until Laura 05/08/22 at 1426, Anesthesia Intra-op Given 05/08/2022 11:54 AM EDT 40 mg Given 05/08/2022 11:53 AM EDT 50 mg Given 05/08/2022 11:52 AM EDT 150 mg rocuronium (Zemuron) (10 mg/mL) multi-dose injection Intravenous, PRN, Starting on Laura 05/08/22 at 1208, Until Laura 05/08/22 at 1426, Anesthesia Intra-op, Routine Given 05/08/2022 11:53 AM EDT 70 mg sugammadex (Bridion) 100 mg/mL injection Intravenous, PRN, Starting on Laura 05/08/22 at 1258, Until Laura 05/08/22 at 1426, Anesthesia Intra-op, Routine Given 05/08/2022 12:58 PM EDT 400 mg documented in this encounter Care Teams Natural Resources Manager Relationship Specialty Start Date End Date Urbano Jimenez DO [address] [place] [address] PCP - General Family Medicine 03/18/22 Ruchi Valles RN Nurse Clinic Transplant Surgery 07/30/15 documented as of this encounter
--- OUTSIDE RECORDS SUMMARY | 2024-02-14 11:17 | XMS_ITS | Encounter Summary ---
Author Organization [facility] [address] Care Team Providers Care Air Lift Operator Name Role Phone Urbano Jimenez Ray KIRBY Primary Care Provider [phone] Reason for Visit * Reason Onset Date Comments Medication Refill 04/15/2022 Encounter Details Date Type Department Care Team (Late st Contact Info) Description 04/15/2022 Refill [place] [address] Tal Eagle MD [facility] [place] [address] Social History Tobacco Use Types Packs/Day Years [...] EDT Hospital Encounter Non-Invasive [place] [address] Arrived documented as of this encounter Goals Goal Patient Goal Type Associated Problems Recent Progress Patient-Stated? Author [facility] Medication Compliance and Understanding Patient Facing Action Plan On track( 017 10:41 AM EDT) Selena Scott, [facility] Note: Patient Goal: Clear hepatitis C Timeframe to meet goal: within 12 weeks of therapy documented as of this encounter Visit Diagnoses Not on filedocumented in this encounter Care Teams Air Lift Operator Relationship Specialty Start Date End Date Urbano Jimenez DO [address] [place] [address] PCP - General Family Medicine 03/18/22 Ruchi Valles RN Nurse Clinic Transplant Surgery 07/30/15 documented as of this encounter
--- OUTSIDE RECORDS SUMMARY | 2024-02-14 11:17 | XMS_ITS | Encounter Summary ---
[place] [address] Care Team Providers Care Product Grader Name Role Phone Urbano Jimenez DO Primary Care Provider [phone] Reason for Referral * Diagnostic Test (Routine) - Closed Specialty Diagnoses / Procedures Referred By Humberto flor Referred To Contact Cardiology Diagnoses Persistent atrial fibrillation Procedures Transesophageal Echocardiogram (DAVEY) Madhu Diana MD [facility] [place] [address] [place] [address] [facility] [place] [address] Referral ID Status Reason Start Date Expiration Date V isits Requested Visits Authorized [id number] Closed Specialty Service Requested 04/17/2022 07/15/2022 1 1 Reason for Visit * Auth/Cert Specialty Diagnoses / Procedures Referred By Humberto flor Referred To Contact Diagnoses Persistent atrial fibrillation [I48.19] Watchman Procedures PRO PERQ CLSR TCAT L ATR APNDGE W/ENDOCARDIAL IMPLNT CARDIAC CATHETERIZATION @PERQ TRANSCATH CLOSURE LEFT ATRIAL APPENDAGE W ENDOCARDIAL IMPLANT, INC RAD S&I (WRVU 14) TRANSESOPHAGEAL ECHO DURING CATH/EP PROCEDURE Madhu Diana MD [facility] [place] [place] [address] [facility] Referral ID Status Reason Start Date Expiration Date Visits Re quested Visits Authorized [id number] 1 1 Encounter Details Date Type Department Care Team (Latest Contact Info) Description 05/08/2022 8:29 AM EDT - 05/09/2022 12:00 PM EDT Hospital Encounter Intermediate Cardiac Care Unit [facility] [place] [address] Madhu Diana MD [facility] [place] [address] Persistent atrial fibrillation Discharge Disposition: Home Social [...] Sign Reading Time Taken Comments Blood Pressure 125/69 05/09/2022 8:27 AM EDT Pulse 70 05/09/2022 8:27 AM EDT Temperature 36.8 ??C (98.2 ??F) 05/09/2022 7:21 AM ED T Respiratory Rate 16 05/09/2022 7:21 AM EDT Oxygen Saturation 95% 05/09/2022 7:21 AM EDT Inhaled Oxygen Concentration - - Weight 100.1 kg (220 lb 10.9 oz) 05/09/2022 3:30 AM EDT Height 180.3 cm (5' 11) 05/08/2022 9:18 AM EDT Body Mass Index 30.78 05/08/2022 9:18 AM EDT documented in this encounter Discharge Summaries * Harjeet Aburto PA - 05/09/2022 8:34 AM EDTSummary: Post Procedure Discharge Summary Discharge Summary Patient Name: Ethel Akins Patient Age: 71 y.o. Language: Turkmen Race: White Ethnicity: Not nor Admit date: 05/08/2022 Discharge date and time: 05/09/2022 1000 Attending Physician: Madhu Diana MD Discharge Physician: Harjeet Diana MD Follow-up Recommendations for Providers: - continue eliquis (aka apixaban) 2.5mg twice daily as prescribed for at least 45 days until your follow up CT scan or DAVEY and discussion with Dr Diana - recommend follow up with PCP in 2-3 weeks - repeat CT scan or DAVEY in 45 days, followed by discussion with Dr Diana - continue other medications as prescribed IMPLANT: 27mm Watchman FLX Inpatient Provider Contact Information: Madhu Diana MD - attending LIN Haddad PA-C [facility] Pager [phone] Discharge Diagnoses (Hospital Problems) and Secondary Diagnoses (Chronic Problems): Active Hospital Problems Diagnosis ??? Atrial fibrillation Resolved Hospital Problems No resolved problems to display. Active Non-Hospital Problems Diagnosis ??? Aortic stenosis, mild ??? Mitral regurgitation Moderate ??? Pacemaker 01/31/2022 Successful implantation of a dual chamber Medtronic pacemaker Medtronic [place] XT DR LOULOU Model ??? Tachy-sakina syndrome ??? Postprandial RUQ [...] Vitamin D deficiency ??? 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 FDC current use of 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 drug ??? CAH [...] ??? DJD (degenerative joint disease) ??? Hematuria Operations/Major Procedures: Operations: Procedure(s): CARDIAC CATHETERIZATION @PERQ TRANSCATH CLOSURE LEFT ATRIAL APPENDAGE W ENDOCARDIAL IMPLANT, INC RAD S&I (WRVU 14) TRANSESOPHAGEAL ECHO DURING CATH/EP PROCEDURE General Anesthesia TransEsophogeal Echo LEft heart catheterization transSeptal puncture Left atrial appendage occlusion with Watchman device TransThoracic echo History of Presentation: Ethel Akins is a 71 y.o. male referred for cardiac catheterization for evaluation of cardiac hemodynamics, left atrial appendage anatomy, and implantation of left atrial appendage occlusion device (Watchman FLX) if indicated. ?? The medical history is notable for atrial fibrillation and an associated elevated risk of thromboembolic stroke with ChadsVasc score 6, HAS-BLED 6. He unfortunately suffered a hemorrhagic stroke while taking OAC. Other medical history includes diabetes, hypertension, Pacemaker implanted for sick sinus syndrome, coronary artery disease with prior PCI to OM1, history of resolved ischemic cardiomyopathy and history of renal transplant. ?? Previously, the patient has taken eliquis for anticoagulation and now is on baby aspirin. History of Presentation: This a 71 y.o. male who is admitted to the Interventional Cardiology Team following successful leftatrial appendage occlusion procedure with Watchman device implant. The patient has a past medical history notable for atrial fibrillation and an associated elevated risk of thromboembolic stroke but has been unable to continue with systemic anticoagulation, thus necessitating a non- pharmacological strategy to reduce stroke risk. NCDR??Registry Data Note Type?Chronic/Paroxysmal AF Hx of Cardioversion:?No Anti-Arrhythmics:?No Sleep Apnea:?No [id number] ( HTN 1, Age??1,?? DM 1, Stroke 2, Vasc Age 1)? HAS-BLED?6 (HTN 1, Stroke 1, Nader Bleed 1, Labile INR 1, >65 yrs 1, Med Asa ) ?? Hospital Course: The patient was admitted following cardiac catheterization for overnight monitoring and observation. The patient did well overnight without significant chest pain or arrhythmias on telemetry. The right femoral ccess site was evaluated and the femoral pulse was palpable with no evidence of vascular c ompromise to the right groin. Limited bedside surface echo and a repeat ECG were reviewed with no evidence of active ischemia. There was a small pericardial effusion at baseline, with no evidence of tamponade, and this remained unchanged post-procedure. QTc remained stable. VS and renal function remained stable. The patient ambulated with nursing without chest discomfort or exertional dyspnea. The patient met criteria for discharge, and was released home in stable condition. PROCEDURES: General anesthesia TransEsophogeal Echo TransThoracic echo Left atrial appendage occlusion Watchman 27mm implant ACCESS: Right femoral vein, 14 Mozambican, ultrasound guided access, perclose for hemostasis ?? Preoperative diagnosis: Persistent atrial fibrillation [I48.19] Watchman ?? Postoperative diagnosis: Persistent atrial fibrillation [I48.19] Watchman ?? Procedure(s) (LRB): CARDIAC CATHETERIZATION (N/A) @PERQ TRANSCATH CLOSURE LEFT ATRIAL APPENDAGE W ENDOCARDIAL IMPLANT, INC RAD S&I (WRVU 14) (N/A) TRANSESOPHAGEAL ECHO DURING CATH/EP PROCEDURE (N/A) ?? Anesthesia: General ?? Findings: Mean LA pressure ~12 mmHg. No evidence of thrombus in the left atrial appendage. ?? Successful left atrial appendage closure with a 27 mm Watchman FLX device. Device met PASS criteriaand safely released. Functional and Cognitive Status: Independent in ALDs and IADLs, A&O x 3, at baseline Important Studies and Lab Data: TTE 05/08/2022 Interpretation Summary Limited post Watchman protocol. There was a small pericardial effusion pre-procedure which is unchanged immediately post procedure (earlier today by DAVEY) and by TTE now. There is no echocardiographic evidence of tamponade. See report for additional findings. ?? Pending Studies and Lab Data: None Discharge Conditions/Prognosis: Good Discharge to: Home Your Medications New Medications Dose Details apixaban 2.5 mg Tab Commonly known as: Eliquis Take 1 tablet by mouth 2 times daily. 2.5 mg Quantity: 60 tablet Refills: 2 Continued medications with new dosing Dose Details amLODIPine 5 mg Tab Commonly known as: Norvasc Take 1 tablet by mouth daily. What changed: when to take this 5 mg Quantity: 90 tablet Refills: 3 multivitamin with minerals and lutein Tab Take 2 tablets by mouth daily. What changed: ?? how much to take ?? when to take this 2 tablet Quantity: 180 tablet Refills: 2 Continued medications, unchanged Dose Details acetaminophen 500 mg Tab Commonly known as: Tylenol Take 1,000 mg by mouth every 8 hours as needed for Pain. 1,000 mg Refills: 0 ascorbic acid (Vitamin C) 500 mg Tab Commonly known as: Vitamin C Take 1 tablet by mouth 3 times daily. 500 mg Quantity: 270 tablet Refills: 2 atorvastatin 40 mg Tab Commonly known as: Lipitor Take 1 tablet by mouth every evening. 40 mg Quantity: 90 tablet Refills: 3 calciTRIoL 0.5 mcg Cap Commonly known as: Rocaltrol TAKE ONE CAPSULE BY MOUTH EVERY DAY Quantity: 90 capsule Refills: 3 glipiZIDE XL 10 mg Tr24 Commonly known as: Glucotrol XL Take 10 mg by mouth 2 times daily. 10 mg Refills: 0 hydrALAZINE 100 mg Tab Commonly known as: Apresoline Take 1 tablet by mouth 2 times daily. 100 mg Quantity: 180 tablet Refills: 1 levothyroxine 137 mcg Tab Commonly known as: SYNTHROID Take 137 mcg by mouth daily. 137 mcg Refills: 0 Magnesium Gluconate 27 mg magnesium (500 mg) Tab TAKE 2 TABLETS BY MOUTH EVERY MORNING , 1 TABLET AT NOON, AND 2 TABLETS EVERY EVENING Quantity: 450 tablet Refills: 1 metoprolol succinate XL 50 mg Tablet sr Commonly known as: Toprol-XL Take 1 tablet by mouth 2 times daily. 50 mg Quantity: 180 tablet Refills: 3 mycophenolate 250 mg Cap Commonly known as: Cellcept Take 1 capsule by mouth 2 times daily. 250 mg Quantity: 14 capsule Refills: 0 nitroGLYcerin 0.4 mg Subl Commonly known as: Nitrostat Place 1 tablet under the tongue every 5 minutes as needed for Chest pain. 0.4 mg Quantity: 90 tablet Refills: 12 tacrolimus 1 mg Cap Commonly known as: Prograf TAKE TWO CAPSULES BY MOUTH EVERY MORNING AND ONE CAPSULE NIGHTLY Quantity: 21 capsule Refills: 0 tamsulosin 0.4 mg Cap Commonly known as: Flomax Take 0.4 mg by mouth daily. 0.4 mg Refills: 0 STOPPED Medications aspirin EC 81 mg [facility] Updated Allergies/ADRs: Allergies Allergen Reactions ??? [place] Immunizations Given this Hospitalization: None Discharge Medications: NO aspirin given history if ICH Continue apixaban (aka eliquis) 2.5mg twice daily as prescribed Continue other medications as prescribed. Smoking Status at Discharge: Ready to quit: Not Answered Counseling given: Not Answered Comment: cigars, one weekly Procedure Specific Instructions Given to Patient at Discharge: Cardiac Cath Provider Discharge Instructions Procedure: Left atrial appendage occlusion with Watchman Device. Anti-coagulation follow up: Restart eliquis (aka apixaban) 2.5mg twice daily at previous dosing Call your doctor if: Chest pain, dyspnea, pain or swelling in legs occurs. If you have non-emergentquestions between now and the time of your follow up appointments: During 8am-5pm Thursday through Thursday call [phone] and ask to speak to the cardiology clinic triage nurse. All other times call [phone] and ask to speak to the geneticist premix concrete batcher. Return to work: One week Driving: No driving for 24 hours after catherization Diet: Regular diet, heart healthy Follow up Appointments: PCP within 2-3 weeks. Then, please follow up with Dr. Diana n [address] scan/DAVEY. At this visit in 45 days we will discuss the next steps regarding taking/not taking blood thinners. Please do not hesitate to contact us with any questions or concerns. Harjeet Aburto Interventional Cardiology [facility] Pager [phone] (M-F 7am-5pm call [phone] grinder set up operator external) General Instructions Listed Below (repeat from above) 1. After the procedure, you will take aspirin 81 mg for a total of 6 months. We will restart anticoagulation (either warfarin, apixiban, rivaroxaban or other anticoagulant) right after the procedure for at least 45 days. Note there is some restriction of activity for 7 days following removal of the IV tube in the leg (which was in the femoral vein): a) encourage ambulation, b) no heavy lifting- nothing more than a gallon of milk, c) no soaking in tubs, d) no driving for 3 days, e) ok to return to work Thursday if no heavy lifting. Regarding the device, the only thing to keep in mind is to share with health care team that you have a watchman when undergoing an MRI. This imaging test can still be done, but they will need to be aware. You will not need to alert airport officials when traveling. It is often hard to see on chest xray and transthoracic echocardiogram; this is normal. 2. At 45 days, we will repeat the CT or DAVEY to look at the device and examine for rare large leaks around the device, or clot on the device 3. Follow up with your PCP 2-3 weeks post procedure and general dining room tables set up attendant in the 1-3 months postprocedure. 4. For the first 6 months of the device, try to avoid unnecessary procedures. For only dental procedures in first 6 months if they must be done: take a prescribed antibiotic before dental procedures (typically amoxicillin 2 g by mouth or clindamycin 600 mg by mouth one time one hour before procedure). Your PCP or our cardiac nurse ([phone]) can prepare a prescription is needed. If there are questions, please contact Dr. Diana at [phone]. If there are emergency questions related to the device, call the geneticist premix concrete batcher at [phone]. Smoking cessation: If you are currently a smoker, you are strongly urged to stop smoking! Smoking increases the severity and incidence of heart disease, and is a risk factor for cancer and emphysema.Your healthcare provider can provide specific measures to assist you, including nicotine supplements, anti-anxiety meds, and support groups in your community. Call your doctor if: Chest pain, dyspnea, pain or swelling in legs occurs. Activity level: No heavy lifting (more than ten pounds) for 48 hours; no more than 25 pounds for two weeks. If you are working, you may return to work in one week, or as directed. Diet: Healthy heart (Low fat, low cholesterol, low sodium). Driving: No restrictions Shower/Bath: May shower; no tub bath for five days after catheterization. Wound Care: Wash with soap and water daily. Contact MD if redness, swelling, increased pain or drainage. Follow up Appointments: F/U with your PCP in 1-2 weeks, and your Home Health Billing Specialist in 4-6 weeks. Please contact each office to make or confirm your appointments! Harjeet Aburto Interventional Cardiology [facility] Pager: [phone] MCKINLEY Calzada Interventional Cardiology 05/09/22 8:34 AM [facility] Pager: [phone] documented in this encounter Discharge Instructions * Patient Instructions* Harjeet Aburto PA - 05/08/2022 1:36 PM EDT Cardiac Cath Provider Discharge Instructions PROCEDURES: general anesthesia, transEsophogeal echo, transThoracic echo, left heart catheterization via tranSeptal puncture, Left atrial appendage occlusion with WATCHMAN device implant Anti-coagulation follow up: CONTINUE eliquis (aka apixaban) 2.5mg twice daily for at least the next45 days. DO NOT STOP this medication unless told to do so by your provider. Call your doctor if: Chest pain, dyspnea, pain or swelling in legs occurs. If you have non-emergentquestions between now and the time of your follow up appointments: During 8am-5pm Thursday through Thursday call [phone] and ask to speak to the cardiology clinic triage nurse. All other times call [phone] and ask to speak to the geneticist premix concrete batcher. Return to work: One week Driving: No driving for 24 hours after catherization Diet: low fat / low cholesterol Follow up Appointments: dining room tables set up attendant Dr Diana in 45 days for repeat evaluation Home oxygen therapy: not applicable Arrangements for VNA / home care: not applicable Details of the cardiac procedure and general instructions: Left Atrial Appendage Closure with WATCHMAN FLX Today, you underwent a left atrial appendage closure, where a small tube travels through the vein in your right leg to the heart. Here, we were able to place a watchman device in the left atrial appendage, which will block the appendage and reduce the risk of stroke. You tolerated this procedure and anesthesia well. You were kept overnight for monitoring and observation and were discharged home in stable condition. There were no procedural complications. You will go back on apixaban 2.5 mg by mouth twice daily for at least the next 45 days. At the 45 day time, you will return for an in office or tele health follow up and you will also have a repeat DAVEY or CT scan to assess the watchman device. The goal is that at this time, there will be no leakingaround the device or clot formed on the device. If there is no leak or clot, you will stop taking the apixaban and will continue on aspirin and plavix for up to 6 months. Then we will see you again at the 6 month princess for another in office visit. Post catheterization recommendations: Do not take a bath or soak in a hot tub for 3 days, you may shower and keep the groin/wrist where we entered your body clean and dry. Please keep a close watchful eye on the groin/wrist for bleeding or bruising, if you develop activebleeding that will not stop, you should put your hand over the opening in the artery and hold firm pressure for 15 minutes, if it does not stop, please call EMS or go to the emergency department; if you develop bruising on the skin, this is normal and should subside, if you are concerned it is not improving, please call us at [phone]. Please caution and limit physical activity or exercise for the next 3 days, perform only light duty, do not lift anything heavier than a gallon of milk. Please follow up with your cardiology in 45 days (6 weeks). Follow up with your PCP in 2-4 weeks after procedure. If there are questions, please contact Yessica Johnson PA-C nurse, Karthik Padilla, at [phone] #[phone] and he will reach out to her as needed. If there are emergency questions at night or over the weekend, call the geneticist premix concrete batcher at [phone]. * Attachments The following attachments cannot be sent through Care Everywhere. * Left Atrial Appendage Closure: Percutaneous: Post-op (Turkmen) documented in this encounter Medications at Time [...] Tablet Take 137 mcg by mouth daily. apixaban (Eliquis) 2.5 mg Tablet Take 1 tablet by mouth 2 times daily. 60 tablet 2 05/08/2022 07/15/2022 mycophenolate (Cellcept) 250 mg CapsuleIndications:Other complication of [...] as of this encounter Progress Notes * Yessica Johnson PA - 05/08/2022 5:31 PM EDT Met with patient post-op in the [facility]. He is doing very well and recovering along the expected timeline. Conversations with his were had regarding discharging today vs tomorrow. The patient's wifeprefers him to be discharged tomorrow due to inability for her to drive home in the dark (lengthy drive up to [place], [place]). Due to patient and family preference, patient will stay the night. Diet order provided. Monitor VS overnight. Apixaban 2.5 mg po BID to restart tomorrow. TTE stable small effusion, monitor hemodynamics. Low threshold for repeat TTE if he becomes hypotensive. Discharge in AM pending stability. Yessica Johnson PA-C documented in this encounter H&P Notes * Yessica Johnson PA - 05/08/2022 1:26 PM EDT LAAC Device (post-PCI) Admission History and Physical PCP: Urbano Jimenez DO Date of Admission: 05/08/2022 Admission Diagnosis: Atrial fibrillation s/p LAAC watchman FLX Problem List: Patient Active Problem List Diagnosis ??? Atrial fibrillation ??? Aortic stenosis, mild ??? Mitral regurgitation Overview Note: Moderate ??? Pacemaker Overview Note: 01/31/2022 Successful implantation of a dual chamber Medtronic pacemaker Medtronic [place] XT DR MRI Model ??? Tachy-sakina syndrome ??? Postprandial RUQ pain ??? Gall stones ??? Tobacco abuse counseling ??? Herniated lumbar intervertebral disc ??? CAD (coronary artery disease) Overview Note: 01/31/2019 NSTEMI in setting of atrial flutter [...] RVR - had flutter initially, then fib Overview Note: O Study 03/14/2021: Duration of recordind 23h Conclusion: [...] Vitamin D deficiency ??? 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 FDC current use of 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 drug ??? CAH (chronic active hepatitis) ??? Type 2 diabetes mellitus with complication, without long-term current use of insulin ??? H/O kidney transplant ??? Aftercare following organ transplant ??? Dehydration ??? Ureteral stricture ??? Enterococcal bacteremia ??? Other complication of kidney transplant ??? Hepatitis C virus infection ??? 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 Hypertension ??? DJD (degenerative joint disease) ??? Hematuria HPI: This 71 y.o. male is admitted with a chief complaint of Atrial Fibrillation with inability to tolerate supervisor intermediates OAC due to prior hemorrhagic conversion of stroke with prompting non pharmacologic stroke risk reduction strategy. The medical history is notable for atrial fibrillation and an associated elevated risk of thromboembolic stroke with ChadsVasc score 6, HAS-BLED 6. hemorrhagic stroke on OAC. DM, HTN, SSS s/p PPM, CAD s/p PCI, kidney transplant. Baseline effusion seen on DAVEY pre and stable post-op. I have reviewed the available records, interviewed and examined the patient. This patient is admitted post PCI for IV hydration, pain management, access site management in the setting of anticoagulation, serial cardiac biomarker monitoring, telemetry monitoring, evaluation oftheir medical condition, and cardiac rehabilitation. ROS/PMHx/Fam Hx/Soc Hx: Reviewed, see outpatient note. Physical Exam: BP 113/69 Pulse 72 Temp 36.2 ??C (97.2 ??F) (Temporal) Resp 27 Ht 180.3 cm (5' 11) Wt 100.7 kg (222 lb) SpO2 96% BMI 30.96 kg/m?? Gen: Well-appearing, NAD HEENT: No pallor, no jaundice CV: RRR, no m/g/r, no elevated JVD above clavicle Lungs: CTAB, no increased WOB Abd: Soft, NTND, +NABS Ext: Wwp, no c/c/e Vasc: 2+ femoral pulses, access site c/d/i Labs: Lab Results Component Value Date WBC 8.3 05/08/2022 HGB 14.5 05/08/2022 HCT 42.1 05/08/2022 MCV 87.2 05/08/2022 PLATELET 273 05/08/2022 Lab Results Component Value Date CREATININE 1.44 05/08/2022 BUN 18 05/08/2022 NA 142 05/08/2022 K 3.6 05/08/2022 CL 103 05/08/2022 CO2 30 05/08/2022 Lab Results Component Value Date CK 127 01/31/2019 TROPONINT 0.05 (H) 02/07/2019 Assessment/ Plan: #Atrial Fibrillation s/p LAAC Watchman FLX - Admit for monitoring - Telemetry, serial ECGs, cycle cardiac biomarkers - Dual antiplatelet therapy - IVF - TTE later today to assess watchman device and screen for effusion (baseline effusion stable post op, seen on DAVEY pre and post op) - Monitor access site RFV perclosed - Anticipate discharge later today pending TTE results and CBC results MCKINLEY Boyle Interventional Cardiology 05/08/22 1:26 PM [facility] Pager: [phone] * Yessica Johnson PA - 05/08/2022 11:05 AM EDT Patient Name: Ethel Akins Patient Age: 71 y.o. Birthdate: 1950 Admit date: 05/08/2022 Attending Physician: Madhu Diana MD [facility] Interventional Cardiology Structural Heart Program Adult Pre-Procedure H&P Update: Left Atrial Appendage Occlusion, percutaneous Chief Complaint: Atrial fibrillation, elevated stroke risk Inability to tolerate systemic anticoagulation HPI: Ethel Akins is a 71 y.o. male referred for cardiac catheterization for evaluation of cardiac hemodynamics, left atrial appendage anatomy, and implantation of left atrial appendage occlusion device (Watchman FLX) if indicated. The medical history is notable for atrial fibrillation and an associated elevated risk of thromboembolic stroke with ChadsVasc score 6, HAS-BLED 6. hemorrhagic stroke on OAC. DM, HTN, SSS s/p PPM, CAD s/p PCI, kidney transplant. Previously, the patient has taken eliquis for anticoagulation and now is on baby aspirin. Screen on table. There have not been any changes in health status since last seen in clinic. No fevers, no chills, no bleeding. Please see recent outpatient clinic note for comprehensive physical and history documentation. Planned Procedure: LAAO Outpatient Medications Marked as Taking for the 05/08/22 encounter (Hospital Encounter) Medication Sig Dispense Refill ??? mycophenolate (Cellcept) 250 mg Capsule Take [...] Release (E.C.) Take 81 mg by mouth Daily at Noon. ??? calciTRIoL (Rocaltrol) 0.5 mcg Capsule TAKE [...] Tablet Take 137 mcg by mouth daily. PHYSICAL: BP 132/68 Pulse 66 Temp 36.2 ??C (97.2 ??F) (Temporal) Ht 180.3 cm (5' 11) Wt 100.7 kg (222 lb) SpO2 94% BMI 30.96 kg/m?? Gen: Alert, comfortable appearing, in NAD HEENT: EOMI, MMM Neck: Supple, no JVD CV: RRR, no M/R/G appreciated, normal S1/S2, PMI not palpated Resp: CTAB, no W/R/R Abd: Soft, NT/ND, +BS Ext: No edema, clubbing, or cyanosis. Warm and well perfused. Neuro: CN grossly intact, moving all extremities Psych: Appropriate affect Pulses: 2+ bilateral radial pulses,2+ bilateral femoral pulses, no femoral bruit appreciated, 2+ bilateral DP pulses Pre-Sedation Assessment: GA with DAVEY Labs reviewed and notable for: Lab Results Component Value Date WBC 8.3 05/08/2022 HGB 14.5 05/08/2022 HCT 42.1 05/08/2022 MCV 87.2 05/08/2022 PLATELET 273 05/08/2022 Lab Results Component Value Date CREATININE 1.44 05/08/2022 BUN 18 05/08/2022 NA 142 05/08/2022 K 3.6 05/08/2022 CL 103 05/08/2022 CO2 30 05/08/2022 Lab Results Component Value Date INR 1.1 01/30/2022 Assessment/Plan: 71 y.o. male here for cardiac catheterization for atrial fibrillation. Will proceed with evaluationof left atrial appendage anatomy and implantation of left atrial appendage occlusion device. - proceed as planned - consent signed -no apparent contraindication to DAPT, patient denies upcoming or planned procedures/operations, and denies ongoing or recent bleeding events - FULL code -12-Lead ECG reviewed - Labs Reviewed: I have personally discussed the procedure, including benefits and risks, with the patient who agrees to proceed. The indications for the catheterization, the expected benefits, and the possible riskswere reviewed in detail with the patient. The potential for , heart attack, stroke, kidney failure, bleeding, allergic reaction, vascular complications and infection as well as other potential complications were reviewed. The possibility of stenting and other percutaneous interventions, with associated risk, was reviewed. The potential need for emergent coronary artery bypass surgery was reviewed. Additional risks include device embolization, and chamber or vessel perforation. If clot is identified in the left atrium or surrounding tissues during the procedure, the procedure may be aborted. Alternatives were discussed and the patient's questions were answered in full. Following this discussion, the patient consented to the procedure and signed a form attesting to this, which is in the chart [facility] Interventional Cardiology 11/03/22 11:05 AM [facility] Pager: [phone] documented in this encounter Miscellaneous Notes * Plan of Care - Rhoda Velasquez RN - 05/09/2022 11:58 AM EDT Patient AVS reviewed. Questions answered. Patient discharged to [facility]. Problem: Adult Inpatient Plan of Care Goal: Plan of Care Review 05/09/2022 1158 by Rhoda Velasquez RN Outcome: Outcome (s) achieved 05/09/2022 0646 by Rhoda Velasquez RN Outcome: Ongoing (Interventions Implemented as Appropriate) Goal: Patient-Specific Goal (Individualized) 05/09/2022 1158 by Rhoda Velasquez RN Outcome: Outcome (s) achieved 05/09/2022 0646 by Rhoda Velasquez RN Outcome: Ongoing (Interventions Implemented as Appropriate) Goal: Absence of Hospital-Acquired Illness or Injury 05/09/2022 1158 by Rhoda Velasquez RN Outcome: Outcome (s) achieved 05/09/2022 0646 by Rhoda Velasquez RN Outcome: Ongoing (Interventions Implemented as Appropriate) Goal: Optimal Comfort and Wellbeing 05/09/2022 1158 by Rhoda Velasquez RN Outcome: Outcome (s) achieved 05/09/2022 0646 by Rhoda Velasquez RN Outcome: Ongoing (Interventions Implemented as Appropriate) Goal: Readiness for Transition of Care 05/09/2022 1158 by Rhoda Velasquez RN Outcome: Outcome (s) achieved 05/09/2022 0646 by Rhoda Velasquez RN Outcome: Ongoing (Interventions Implemented as Appropriate) Problem: Arrhythmia/Dysrhythmia (Cardiac Catheterization) Goal: Stable Heart Rate and Rhythm 05/09/2022 1158 by Rhoda Velasquez RN Outcome: Outcome (s) achieved 05/09/2022 0646 by Rhoda Velasquez RN Outcome: Ongoing (Interventions Implemented as Appropriate) Problem: Bleeding (Cardiac Catheterization) Goal: Absence of Bleeding 05/09/2022 1158 by Rhoda Velasquez RN Outcome: Outcome (s) achieved 05/09/2022 0646 by Rhoda Velasquez RN Outcome: Ongoing (Interventions Implemented as Appropriate) Problem: Contrast-Induced Injury Risk (Cardiac Catheterization) Goal: Absence of Contrast-Induced Injury 05/09/2022 1158 by Rhoda Velasquez RN Outcome: Outcome (s) achieved 05/09/2022 0646 by Rhoda Velasquez RN Outcome: Ongoing (Interventions Implemented as Appropriate) Problem: Embolism (Cardiac Catheterization) Goal: Absence of Embolism Signs and Symptoms 05/09/2022 1158 by Rhoda Velasquez RN Outcome: Outcome (s) achieved 05/09/2022 0646 by Rhoda Velasquez RN Outcome: Ongoing (Interventions Implemented as Appropriate) Problem: Ongoing Anesthesia/Sedation Effects (Cardiac Catheterization) Goal: Anesthesia/Sedation Recovery 05/09/2022 1158 by Rhoda Velasquez RN Outcome: Outcome (s) achieved 05/09/2022 0646 by Rhoda Velasquez RN Outcome: Ongoing (Interventions Implemented as Appropriate) Problem: Pain (Cardiac Catheterization) Goal: Acceptable Pain Control 05/09/2022 1158 by Rhoda Velasquez RN Outcome: Outcome (s) achieved 05/09/2022 0646 by Rhoda Velasquez RN Outcome: Ongoing (Interventions Implemented as Appropriate) Problem: Vascular Access Protection (Cardiac Catheterization) Goal: Absence of Vascular Access Complication 05/09/2022 1158 by Rhoda Velasquez RN Outcome: Outcome (s) achieved 05/09/2022 0646 by Rhoda Velasquez RN Outcome: Ongoing (Interventions Implemented as Appropriate) * Consult Note - Olga Galan RN - 05/09/2022 10:59 AM EDT Picc Catheter Removal: PICC Removal Catheter Removal: Date: 05/10/2022 [ x ] Catheter removed intact with 38 cm removed from right arm, per MD order. Reason for removal: [ x ] End of Therapy [ ] Phlebitis [ ] Cellulitis [ ] Catheter-related infection: [ ] Suspected [ ] Documented [ ] Thrombus: [ ] Suspected [ ] Documented [ ] Infiltration [ ] Other Description of insertion/exit site: [x ] no signs of infection, no bleeding at site [ ] other (see narrative below) Patient Education: [x ] Patient instructed to observe site for redness, swelling, discomfort and /or exudates and [facility]ard Healthcare Provider if any of these signs/symptoms present. Comments: bacitracin/gauze/tegaderm to site * Plan of Care - Kiki Flores RN - 05/09/2022 6:43 AM EDT OUTCOME EVALUATION NOTE: OUTCOME SUMMARY: Pt A&Ox4. 75% V-paced on telemetry with afib/aflutter underlying. No reports of chest pain or SOB. See flowsheets for VS & I/Os. R fem site CDI. Call robles within reach. Possible discharge today. PLAN MOVING FORWARD: pain management monitor cardiac monitor I/Os discharge planning as appropriate INDIVIDUALIZED FALL PREVENTION INTERVENTIONS: Patient-specific fall risk factors per assessment: [current deficits]: telemetry Assistance [level of assistance required for transfers and ambulation]: IND Supervision [direct monitoring required during toileting and ADLs]: IND Surveillance [continuous indirect monitoring]: Telemetry Call robles within reach Hourly rounding CPG GOAL OUTCOME EVALUATION: ongoing assessment Problem: Adult Inpatient Plan of Care Goal: Plan of Care Review Outcome: Ongoing (Interventions Implemented as Appropriate) Goal: Patient-Specific Goal (Individualized) Outcome: Ongoing (Interventions Implemented as Appropriate) Goal: Absence of Hospital-Acquired Illness or Injury Outcome: Ongoing (Interventions Implemented as Appropriate) Goal: Optimal Comfort and Wellbeing Outcome: Ongoing (Interventions Implemented as Appropriate) Goal: Readiness for Transition of Care Outcome: Ongoing (Interventions Implemented as Appropriate) Problem: Arrhythmia/Dysrhythmia (Cardiac Catheterization) Goal: Stable Heart Rate and Rhythm Outcome: Ongoing (Interventions Implemented as Appropriate) Problem: Bleeding (Cardiac Catheterization) Goal: Absence of Bleeding Outcome: Ongoing (Interventions Implemented as Appropriate) Problem: Contrast-Induced Injury Risk (Cardiac Catheterization) Goal: Absence of Contrast-Induced Injury Outcome: Ongoing (Interventions Implemented as Appropriate) Problem: Embolism (Cardiac Catheterization) Goal: Absence of Embolism Signs and Symptoms Outcome: Ongoing (Interventions Implemented as Appropriate) Problem: Ongoing Anesthesia/Sedation Effects (Cardiac Catheterization) Goal: Anesthesia/Sedation Recovery Outcome: Ongoing (Interventions Implemented as Appropriate) Problem: Pain (Cardiac Catheterization) Goal: Acceptable Pain Control Outcome: Ongoing (Interventions Implemented as Appropriate) Problem: Vascular Access Protection (Cardiac Catheterization) Goal: Absence of Vascular Access Complication Outcome: Ongoing (Interventions Implemented as Appropriate) * Brief Op Note - Madhu Diana MD - 05/08/2022 1:38 PM EDT Brief Operative Note Patient Name: Ethel Akins : [id number] MR#: [id number] Case Date: 05/08/2022 Surgeon: Surgeon(s) and Role: Panel 1: * Madhu Diana MD - Primary * Yessica Johnson PA - Physician Litigation Paralegal Panel 2: * Damien Ellis MD - Primary Preoperative diagnosis: Persistent atrial fibrillation [I48.19] Watchman Postoperative diagnosis: Persistent atrial fibrillation [I48.19] Watchman Procedure(s) (LRB): CARDIAC CATHETERIZATION (N/A) @PERQ TRANSCATH CLOSURE LEFT ATRIAL APPENDAGE W ENDOCARDIAL IMPLANT, INC RAD S&I (WRVU 14) (N/A) TRANSESOPHAGEAL ECHO DURING CATH/EP PROCEDURE (N/A) Anesthesia: General Findings: Mean LA pressure ~12 mmHg. No evidence of thrombus in the left atrial appendage. Successful left atrial appendage closure with a 27 mm Watchman FLX device. Device met PASS criteriaand safely released. Complications: None immediate via RFV (perclose x1) documented in this encounter Plan of Treatment Upcoming Encounters Date Type Department Care Team (Late st Contact Info) Description 04/15/2024 10:00 AM EDT Hospital Encounter [place] [address] Arrived documented as of this encounter Goals Goal Patient Goal Type Associated Problems Recent Progress Patient-Stated? Author DH Home Medication Compliance and Understanding Patient Facing Action Plan On track( 017 10:41 AM EDT) Selena Scott, [facility] Note: Patient Goal: Clear hepatitis C Timeframe to meet goal: within 12 weeks of therapy documented as of this encounter Procedures Procedure Name Priority Date/Time Associated Diagnosis Comments HEMOGRAM STAT 05/08/2022 3:30 PM EDT DIFFERENTIAL, AUTOMATED STAT 05/08/20 3:30 PM EDT HC CBC,PLT & AUTO DIFF STAT 3:30 PM EDT ECHO LMTD W/O CONTRAST W LMTD SPEC DOPP COLOR DOPP Routine 05/08/2022 3:02 PM EDT Persistent atrial fibrillation EKG 12-LEAD Routine 05/08/2022 1:26 PM EDT Persistent atrial fibrillation CARDIAC CATHETERIZATION Routine 05/08/20 1:10 PM EDT Persistent atrial fibrillation DAVEY FOR GUIDANCE Routine 05/08/2022 12:5 8 PM EDT Persistent atrial fibrillation POCT GLUCOSE Routine 05/08/2022 12:32 PM EDT TRANSESOPHAGEAL ECHO DURING CATH/EP PROCEDURE 05/08/2022 11:41 AM EDT Persistent atrial fibrillation POCT GLUCOSE Routine 05/08/2022 9:39 AM EDT TYPE AND SCREEN VALIDITY STAT 05/08/2022 8:54 AM EDT ABORH RECHECK STATUS STAT 05/08/2022 8:54 AM EDT BMP W/FASTING GLUCOSE Routine 05/08/2022 8:54 AM EDT HEMOGRAM Routine 05/08/2022 8:54 AM EDT DIFFERENTIAL, AUTOMATED Routine 05/08/20 8:54 AM EDT ABO/RH TYPING STAT 05/08/2022 8:54 AM EDT Persistent atrial fibrillation HC VENIPUNCTURE Routine 05/08/2022 8:54 AM EDT ANTIBODY SCREEN STAT 05/08/2022 8:54 AM EDT Persistent atrial fibrillation HC ABO-MICROTITER STAT 05/08/2022 8:5 4 AM EDT Persistent atrial fibrillation PERQ TRANSCATH CLOSURE LEFT ATRIAL APPENDAGE W ENDOCARD IMPLANT Routine 04/09/2022 8:20 AM EDT Persistent atrial fibrillation documented in this encounter Results * Differential, Automated (05/08/2022 3:30 PM EDT) Neutrophil % 73.2 % [facility] Neutrophil Absolute 5.92 1.70 - 6.10 x10(3)/[facility] Lymph % 16.1 % [facility] Lymphocytes Abs 1.3 0.9 - 3.2 x10(3)/[facility] Monocyte % 6.6 % [facility] Monocyte Abs 0.5 0.3 - 0.9 x10(3)/[facility] Eos % 3.1 % [facility] Eosinophils Abs 0.2 0.0 - 0.4 x10(3)/[facility] Basophil % 0.6 % [facility] Baso Absolute 0.0 0.0 - 0.1 x10(3)/[facility] Immature Gran % 0.40 % [facility] Comment: Immature granulocytes(IG's)percentage and absolute count will include metamyelocytes, myelocytes, and promyelocytes. Blood smears from CBCs yielding IG's will be scanned manually for concordance. If this scan disagrees with the automated IG or if promyelocytes are noted, a manual differential will be performed. Immature Gran Absolute 0.03 0.00 - 0.04 x10(3)/[facility] Blood 05/08/2022 3:30 PM EDT 05/08/2022 3:41 PM EDT Narrative Resulting Agency Comment Spec In Lab Madhu Diana MD HEMATOLOGY ORDERABLE S [facility] [place] [address] * (ABNORMAL) Hemogram (05/08/2022 3:30 PM EDT) White Blood Cell 8.1 4.0 - 9.5 x10(3)/mc L [facility] Red Blood Cell 4.31(L) 4.58 - 5.54 x10(6)/mc L [facility] Hemoglobin 13.2(L) 13.7 - 16.5 g/dL [facility] Hematocrit 38.4(L) 40.5 - 48.5 % [facility] Mean Cell Volume 89.1 82.9 - 93.[address] [facility] Mean Cell Hemoglobin 30.6 27.5 - 32.[address] [facility] Mean Cell Hemoglobin Concentration 34.4 32.0 - 35.7 g/dL [facility] Platelet 241 145 - 357 x10(3)/mc L [facility] RDW Standard Deviation 42.4 36.0 - 45.[address] [facility] RDW coefficient of variation 13.0 11.4 - 13.8 % [facility] Mean Platelet Volume 9.4 7.6 - 12.[address] [facility] NRBC% auto 0.0 % [facility] NRBC Absolute 0.000 0.000 - 0.000 x10(3)/mc L [facility] Blood 05/08/2022 3:30 PM EDT 05/08/2022 3:41 PM EDT Narrative Resulting Agency Comment Spec In Lab Madhu Diana MD HEMATOLOGY ORDERABLE S [facility] [place] [address] * ECHO LMTD W/O CONTRAST W LMTD SPEC DOPP COLOR DOPP (05/08/2022 3:02 PM EDT) Anatomical Region Laterality Modality Cardiac Other 05/08/2022 2:28 PM EDT Narrative 05/08/2022 3:56 PM EDT ? Echocardiogram Report Name: ETHEL AKINS ? Study Date: 05/08/2022 02:28 PM ?BP: 107/63 mmHg ?Patient Location: [address] : 1950 ?Height: 180 cm ? Account: [id number] Age: 71 yrs ?Weight: 101 kg Gender: Male ? BSA: 2.2 m2 Ordering Physician: MADHU DIANA Referring Physician: SHAQ BROWN Performed By: Halima York RDCS Reason For Study: S/P Watchman Interpretation Summary Limited post Watchman protocol. There was a small pericardial effusion pre-procedure which is unchanged immediately post procedure (earlier today by DAVEY) and by TTE now. There is no echocardiographic evidence of tamponade. See report for additional findings. Procedure Limited - 43268. limited spectral 06374. Color Doppler - 31130. Satisfactory quality. Irregular rhythm. Left Ventricle Left ventricular systolic function is mildly reduced. Left ventricular ejection fraction is estimated visually at 45%. Left Atrium Icrn-yu-rncpf flow is present. There is a single atrial septostomy site present. Venous Inferior vena cava is normal in size. Inferior vena cava collapse greater than 50% with respiration. Pericardium/Pleural There is a small pericardial effusion. I ?WMSI = 2.00 ? % Normal = 0 ?Segments ??Size X - Cannot ?2 - ?4 - ?1-2 ? small Interpret ?1 - Normal ?? Hypokinetic 3 - Akinetic Dyskinetic ?? 3-5 ? moderate 5 - ? 6-14 ?large Aneurysmal ?15-16 ?? diffuse Procedure Note Liseth Calero MD - 05/08/2022 Echocardiogram Report Name: ETHEL AKINS Study Date: 05/08/2022 02:28 PM BP: 107/63mmHg Patient Location: [address] : 1950 Height: 180 cm Account:[id number] Age: 71 yrs Weight: 101 kg Gender: Male BSA: 2.2 m2 Ordering Physician: MADHU DIANA Referring Physician: SHAQ BROWN Performed By: Halima York RDCS Reason For Study: S/P Watchman Interpretation Summary Limited post Watchman protocol. There was a small pericardial effusion pre-procedure which is unchanged immediately post procedure (earlier today by DAVEY) and by TTE now. There isno echocardiographic evidence of tamponade. See report for additional findings. Procedure Limited - 28423. limited spectral 04929. Color Doppler - 91077.Satisfactory quality. Irregular rhythm. Left Ventricle Left ventricular systolic function is mildly reduced. Left ventricularejection fraction is estimated visually at 45%. Left Atrium Gxgj-so-yjfyg flow is present. There is a single atrial septostomy sitepresent. Venous Inferior vena cava is normal in size. Inferior vena cava collapse greaterthan 50% with respiration. Pericardium/Pleural There is a small pericardial effusion. I WMSI = 2.00 % Normal = 0 SegmentsSize X - Cannot 2 - 4 - 1-2small Interpret 1 - Normal Hypokinetic 3 - Akinetic Dyskinetic 3-5moderate 5 - 6-14large Aneurysmal 15-16diffuse Madhu Diana MD ECHO ORDERABLES * EKG 12 Lead (05/08/2022 1:26 PM EDT) Ventricular rate 73 BPM MUSE SYSTEM QRS Duration 114 ms MUSE SYSTEM Q-T Interval 422 ms MUSE SYSTEM QTC Calculated (Bezet) 464 ms MUSE SYSTEM Calculated R [place] -57 degrees MUSE SYSTEM Calculated T [place] -60 degrees MUSE SYSTEM INTERPRETATION Atrial fibrillation with frequent ventricular-pac ed complexes and with premature ventricular or aberrantly conducted complexes Left anterior fascicular block Prolonged QT Abnormal ECG When compared with ECG of 25-FEB-2022 09:48, Vent. rate has increased BY ?? 8 BPM Confirmed by MD Shayy, Enrique Torres ([id number]) on 05/13/2022 7:48:40 AM MUSE SYSTEM 05/08/2022 1:26 PM EDT 05/13/2022 7:48 AM EST Madhu Diana MD ECG ORDERABLES MUSE SYSTEM * CARDIAC CATHETERIZATION (05/08/2022 1:10 PM EDT) Anatomical Region Laterality Modality Other Narrative 05/08/2022 3:37 PM EDT ?[facility] ? Cardiac Catheterization/Intervention Report ? Patient Name: Ethel Akins P. ? Procedure Date: 05/08/2022 ? A #: [id number] ? Primary Physician: Lebron, Madhu Schumacher ? Case #: [id number] ? File Name: [id number] ? Catheterization Order Number: [id number] ? [facility] ? Final Report [place], [place] ? Patient Name: ? Ethel P. Tubiello ? ID#: ?[id number] ? : ?1950 ? Procedure Date: ? May 08, 2022 ? Case #: ? [id number] ? Room: ? 6 ? Case Physicians: ?Madhu Diana M.D. ?Start: ?12:18 ?Aldo Montes M.D. ?Admission: ??05/08/2022 ?Damien Ellis M.D. ? Referring Physician: ??Shaq Brown M.D. ? Procedures: ?* Left Heart Catheterization ?* Left Atrial Injection ?* Transseptal Puncture ?* Vascular Closure Device Deployment ?* Venous Line / Sheath Insert ?* Endotracheal Intubation By Non-Cath Physician ?* Transesophageal Echo During Cath ?* Anesthesia ?* Vascular Ultrasound ?* Left Atrial Appendage Closure ? History ?Ethel Akins is a 71 year old man. He has hypertension. The ?patient's smoking status is Never. He has hypercholesterolemia. The ?patient has diabetes managed by oral medication and insulin. He is status ?post a remote myocardial infarction. The patient has a history of atrial ?fibrillation/atrial flutter. He has a PPM implantation. The patient has a ?cerebral vascular accident and a history of transient ischemic attacks. ?He also has a history of chronic obstructive pulmonary disease. Prior to ?the initiation of this procedure, the patient was designated as ASA Class ?III. The [facility] clinical frailty scale is 6: Moderately Frail. ? Diagnostic Tests: ?Prior Coronary Angiography: ? LV ejection fraction within 6 months is 55%. ?Electrocardiography: ? EKG was assessed by ECG. EKG was Abnormal. EKG showed T-wave ? inversions. ?Medications Prior to Procedure: ? Beta Frantz, Calcium Channel Blocking Agent and Statin. ? Indications for Diagnostic Cath: ?The priority of the diagnostic procedure was Elective. The indication for ?the shop laborer visit is other indication. Chest pain symptom assessment ?was: Asymptomatic. ? Technique: ?A 14Fr sheath was inserted in the right femoral vein utilizing the ?Seldinger technique. The left atrium was injected utilizing a 6Fr ANGLED ?PIGTAIL catheter. Left atrial pressure was performed with an 8.5Fr VENOUS ?SHEATH catheter. Transseptal puncture was performed with an 8.5Fr Troy ?NRG RF Needle. 6,000 units of heparin were administered. A total of 150cc ?of Iso-Man were opened, 30cc of Iso-Man were administered and 120cc of ?Iso-Man were wasted. Radiation: Fluoro time was 5.7 minutes, dose area ?product was 23,500 mGYcm2 and air kerma was 155 mGY. See the case log for ?additional details. ?The patient received the following medications prior to and during the ?procedure: ? Unfractionated Heparin. ? Hemodynamics: ?Left Heart Pressures ? Resting: ? Syst Diast ? EDP ?a ?v ? m ?LA ? 10 ?19 ?11 ? Left Atrial Appendage closure (BATOOL closure): ?A left atrial appendage closure was performed for atrial fibrillation. ?The patient had a [id number]-CVOf score of 6, a HAS-BLED score of 6 and a ?prior history of bleeding. The indication for the procedure was increased ?thromboembolic stroke risk, history of major bleed and patient ?preference. ?The left atrial orifice had a maximal width of 21.0 mm determined by DAVEY. ?The procedure was performed with general anesthesia. ?Transseptal puncture was performed under fluoroscopy guidance and ?transesophageal echo guidance using an 8.5 Fr VersaCross Transseptal 45 ?degree introducer and VersaCross pigtail RF wire ??needle. ?The left atrial occlusion procedure was performed with fluoroscopy and ?DAVEY guidance. An angled pigtail was placed in the left atrial appendage ?and exchanged for a Watchman TruSeal Double Curve delivery sheath. A ?Watchman FLX Closure Device 27 mm (s/l/n [id number]) was prepared and ?deployed using standard technique. The device met the PASS criteria. ?There was no residual device margin leak. ?There were no complications. ?The left atrial occlusion procedure was successful. ? Vascular Access: ?Vascular Access Management: ? A 6 Fr Perclose was deployed at the right femoral vein access site. ? This device was successful. Mechanical Compression of the right ? femoral vein access site was performed. ? Dual Antiplatelet (DAPT) Recommendations: ?Patient was not on a P2Y12 inhibitor prior to nor was it given in the ?shop laborer. ?Recommended anti-platelet/anti-thrombotic regimen: ?Continue apixaban 2.5 mg twice daily for 45 days then stop. ?These recommendations are made at the time of the intervention. Patient ?and provider preferences or a changing clinical situation may require ?modification of this regimen. Consult [facility] Interventional Cardiology for ?questions. ? Conclusions: ?* Successful left atrial occlusion procedure ?* See Dual Antiplatelet (DAPT) Recommendations above ? Complications/Events: ?The patient had no complications during these procedures. ?The attending physician was present for the entire procedure. ?Dr. Madhu Diana M.D. performed the left heart catheterization, left ?atrial injection, transseptal puncture, vascular ultrasound, venous line / ?sheath insert, intubation-non cath physician, transesophageal echo during ?cath, vascular closure device, anesthesia and BATOOL closure. Dr. Aldo Morgan ?Herrera Montes performed the anesthesia. Dr. Damien Ellis M.D. ?performed the transesophageal echo during cath. ? Madhu N Young, M.D. ? Electronically Signed by: Madhu Diana M.D. ? Report Finalized: 05/08/2022 ??15:33 ? Madhu Diana MD CARDIAC CATH ORDERAB LES * DAVEY FOR GUIDANCE (05/08/2022 12:58 PM EDT) EF 45 HEARTLAB SYSTEM Anatomical Region Laterality Modality Cardiac Other 05/08/2022 11:5 8 AM EDT Narrative 05/08/2022 3:12 PM EDT ? Transesophageal Echocardiogram Report Name: ETHEL AKINS ?Study Date: 05/08/2022 11:58 AM ? Patient Location: [place] [address] A : 1950 ? Height: 180 cm ? Account: [id number] Age: 71 yrs ? Weight: 101 kg Gender: Male ?BSA: 2.2 m2 Ordering Physician: GENA CHERRY Referring Physician: MADHU DIANA Performed By: Damien Ellis MD Reason For Study: Atrial Fibrillation Exam Location: [facility]. Interpretation Summary DAVEY performed to guide BATOOL closure in catheterization laboratory. Baseline: No BATOOL thrombus. Max os diameter of ~22 mm. Small pericardial effusion. Post: 27 mm Watchman FLX device well-seated within BATOOL. No mary-device leak. No change in pericardial effusion. [id number] flow across atrial septostomy. See report for additional findings. Procedure Complete Guidance Transesophageal echocardiogram, real-time with image documentation (2D) including probe placement, image acquisition, interpretation, and report; Color flow velocity mapping; PW and/or CW doppler display. 3D image acquisition, rendering with interpretation and reporting, not requiring post- processing on an independent workstation. Probe passed by: Dr. Montes (anesthesiology). There were no complications during the procedure. Left Ventricle Left ventricular ejection fraction is estimated visually at 45%. Right Ventricle There is a CIED lead in the right ventricle. Right ventricular function is probably normal. Left Atrium There is no evidence of a mass or thrombus. Pulsed wave Doppler of the left atrial appendage demonstrates low emptying velocity which suggests elevated thrombotic risk. Right Atrium No evidence of a mass or thrombus. A pacemaker lead is present in the right atrium. Aortic Valve The aortic valve is tricuspid. There is aortic valve sclerosis without stenosis. The aortic valve area calculated using planimetry is 2.3 cm2. There is mild aortic regurgitation. Mitral Valve The mitral valve is structurally normal. There is mild mitral regurgitation. Tricuspid Valve The tricuspid valve is structurally normal. There is mild to moderate tricuspid regurgitation. Pulmonic Valve The pulmonic valve appears to be structurally and functionally normal. Great Arteries The ascending aorta is mildly dilated. Ascending Plaque grade 2: (extensive intimal thickening). Aortic Arch Plaque grade 3: (atheroma </= 5mm). Descending Thoracic Aorta Plaque grade 3: (atheroma </= 5mm). Pericardium/Pleural There is a small pericardial effusion. ? 2D Measurements ?Ao root diam: 3.6 cm ?Ao root diam index: 1.7 ?asc Aorta Diam: 3.7 cm Doppler SHANIA Planimetery: 2.3 cm2 Procedure Note Damien Ellis MD - 05/08/2022 Transesophageal Echocardiogram Report Name: SHAKIRAANARAMÓNETHEL Patricia Study Date: 1:58 AM Patient Location: [address] : 1950 Height: 180 cm Account: [id number] Age: 71 yrs Weight: 101 kg Gender: Male BSA: 2.2 m2 Ordering Physician: GENA CHERRY Referring Physician: MADHU DIANA Performed By: Damien Ellis MD Reason For Study: Atrial Fibrillation Exam Location: [facility]. Interpretation Summary DAVEY performed to guide BATOOL closure in catheterization laboratory. Baseline: No BATOOL thrombus. Max os diameter of ~22 mm. Small pericardialeffusion. Post: 27 mm Watchman FLX device well-seated within BTAOOL. No mary-deviceleak. No change in pericardial effusion. [id number] flow across atrialseptostomy. See report for additional findings. Procedure Complete Guidance Transesophageal echocardiogram, real-time with image documentation (2D) including probe placement, image acquisition,interpretation, and report; Color flow velocity mapping; PW and/or CW doppler display. 3Dimage acquisition, rendering with interpretation and reporting, not requiringpost- processing on an independent workstation. Probe passed by: Dr. Montes (anesthesiology). There were no complications during the procedure. Left Ventricle Left ventricular ejection fraction is estimated visually at 45%. Right Ventricle There is a CIED lead in the right ventricle. Right ventricular functionis probably normal. Left Atrium There is no evidence of a mass or thrombus. Pulsed wave Doppler of theleft atrial appendage demonstrates low emptying velocity which suggests elevatedthrombotic risk. Right Atrium No evidence of a mass or thrombus. A pacemaker lead is present in theright atrium. Aortic Valve The aortic valve is tricuspid. There is aortic valve sclerosis withoutstenosis. The aortic valve area calculated using planimetry is 2.3 cm2. There ismild aortic regurgitation. Mitral Valve The mitral valve is structurally normal. There is mild mitralregurgitation. Tricuspid Valve The tricuspid valve is structurally normal. There is mild to moderatetricuspid regurgitation. Pulmonic Valve The pulmonic valve appears to be structurally and functionally normal. Great Arteries The ascending aorta is mildly dilated. Ascending Plaque grade 2:(extensive intimal thickening). Aortic Arch Plaque grade 3: (atheroma </= 5mm).Descending Thoracic Aorta Plaque grade 3: (atheroma </= 5mm). Pericardium/Pleural There is a small pericardial effusion. 2D Measurements Ao root diam: 3.6 cm Ao root diam index: 1.7 asc Aorta Diam: 3.7 cm Doppler SHANIA Planimetery: 2.3 cm2 Gena Cherry MD ECHO ORDERABLES * POCT Glucose (05/08/2022 12:32 PM EDT) Glucose, POC 142 65 - 199 mg/dL [facility] Comment: Supplemental ranges: <140 mg/dL before meals <180 mg/dL all other times of the day Blood 05/08/2022 12:3 2 PM EDT 05/08/2022 12:32 PM EDT Madhu Diana MD POINT OF CARE TEST O RDERABG [facility] [place] [address] * POCT Glucose (05/08/2022 9:39 AM EDT) Glucose, POC 134 65 - 199 mg/dL [facility] Comment: Supplemental ranges: <140 mg/dL before meals <180 mg/dL all other times of the day Blood 05/08/2022 9:39 AM EDT 05/08/2022 9:39 AM EDT Madhu Diana MD POINT OF CARE TEST O RDERABG Performing Organization Address City/[facility]/ZIP Co de Phone Number [facility] [place] [address] * Type and Screen Validity (05/08/2022 8:54 AM EDT) T&S only valid at [facility]ATORY Comment:This Type and Screen result is only valid at the [facility] Blood 05/08/2022 8:54 AM EDT 05/08/2022 8:55 AM EDT Narrative Resulting Agency Comment Spec In Lab Harjeet SEN BLOOD BANK LAB ORDER IGNACIO [facility] [place] [address] * ABORH Recheck Status (05/08/2022 8:54 AM EDT) ABORH Type Recheck Completed [facility] Blood 05/08/2022 8:54 AM EDT 05/08/2022 8:55 AM EDT Narrative Resulting Agency Comment Spec In Lab Harjeetdeena Aburto PA BLOOD BANK LAB ORDER IGNACIO [facility] [place] [address] * Antibody screen (05/08/2022 8:54 AM EDT) Pathologist [facility] Ab Screen Interp Negative [facility] Expires at 2359 on: 05/11/2022 [facility] Blood 05/08/2022 8:54 AM EDT 05/08/2022 8:55 AM EDT Narrative Resulting Agency Comment Spec In Lab Harjeet L Criselda PA BLOOD BANK LAB ORDER IGNACIO [facility] [place] [address] * ABO/Rh Typing (05/08/2022 8:54 AM EDT) ABORH Type AB Pos [facility] Blood 05/08/2022 8:54 AM EDT 05/08/2022 8:55 AM EDT Narrative Resulting Agency Comment Spec In Lab Harjeet L Criselda PA BLOOD BANK LAB ORDER IGNACIO [facility] [place] [address] * Differential, Automated (05/08/2022 8:54 AM EDT) Neutrophil % 69.6 % [facility] Neutrophil Absolute 5.76 1.70 - 6.10 x10(3)/mcL [facility] Lymph % 18.1 % [facility] Lymphocytes Abs 1.5 0.9 - 3.2 x10(3)/[facility] Monocyte % 7.1 % [facility] Monocyte Abs 0.6 0.3 - 0.9 x10(3)/[facility] Eos % 3.7 % [facility] Eosinophils Abs 0.3 0.0 - 0.4 x10(3)/[facility] Basophil % 1.1 % [facility] Baso Absolute 0.1 0.0 - 0.1 x10(3)/[facility] Immature Gran % 0.40 % [facility] Comment: Immature granulocytes(IG's)percentage and absolute count will include metamyelocytes, myelocytes, and promyelocytes. Blood smears from CBCs yielding IG's will be scanned manually for concordance. If this scan disagrees with the automated IG or if promyelocytes are noted, a manual differential will be performed. Immature Gran Absolute 0.03 0.00 - 0.04 x10(3)/[facility] Blood 05/08/2022 8:54 AM EDT 05/08/2022 9:05 AM EDT Narrative Resulting Agency Comment Spec In Lab Madhu Diana MD HEMATOLOGY ORDERABLE S [facility] [place] [address] * Hemogram (05/08/2022 8:54 AM EDT) White Blood Cell 8.3 4.0 - 9.5 x10(3)/[facility] Red Blood Cell 4.83 4.58 - 5.54 x10(6)/[facility] Hemoglobin 14.5 13.7 - 16.5 g/dL [facility] Hematocrit 42.1 40.5 - 48.5 % [facility] Mean Cell Volume 87.2 82.9 - 93.[address] [facility] Mean Cell Hemoglobin 30.0 27.5 - 32.[address] [facility] Mean Cell Hemoglobin Concentration 34.4 32.0 - 35.7 g/dL [facility] Platelet 273 145 - 357 x10(3)/[facility] RDW Standard Deviation 40.7 36.0 - 45.[address] [facility] RDW coefficient of variation 12.9 11.4 - 13.8 % [facility] Mean Platelet Volume 9.1 7.6 - 12.[address] [facility] NRBC% auto 0.0 % [facility] NRBC Absolute 0.000 0.000 - 0.000 x10(3)/[facility] Blood 05/08/2022 8:54 AM EDT 05/08/2022 9:05 AM EDT Narrative Resulting Agency Comment Spec In Lab Madhu Diana MD HEMATOLOGY ORDERABLE S [facility] [place] [address] * (ABNORMAL) BMP w/fasting Glucose (05/08/2022 8:54 AM EDT) Glucose Fasting 168(H) 65 - 99 mg/dL [facility] Comment: ?Fasting* Glucose Interpretive Criteria Normal ?65-99 mg/dL Impaired Fasting glucose ?100-125 mg/dL Consistent with Diabetes Mellitus ? >or= 126 mg/dL *Fasting is defined as no caloric intake for at least 8 hours In the absence of unequivocal hyperglycemia a plasma glucose value of >or= 126 mg/dL should be repeated on a subsequent day. Diagnosis and Classification of Diabetes Mellitus, Position Statement from the [place] [employer]. ??Diabetes Care, Volume 33, Supplement 1, Jul 2009 Blood Urea Nitrogen 18 10 - 20 mg/dL [facility] Creatinine 1.44 0.80 - 1.50 mg/dL [facility] Sodium 142 135 - 145 mmol/L [facility] Potassium 3.6 3.5 - 5.0 mmol/L [facility] Comment: Please note: ??Patients with WBC >100,000 may have falsely elevated Potassium levels. ??For accurate Potassium quantification in these patients send serum separator tube (gold top) for subsequent determinations. ??Contact the Clinical Chemistry Laboratory if there are any questions. Chloride 103 98 - 107 mmol/L [facility] Carbon Dioxide 30 22 - 31 mmol/L [facility] Anion Gap 9 5 - 15 mmol/L [facility] Calcium 9.8 8.5 - 10.5 mg/dL [facility] Est Glomerular Filtration Rate 51(L) >=60 mL/min/1. 73 m?? [facility] [...] and symptoms in addition to eGFR. Blood 05/08/2022 8:54 AM EDT 05/08/2022 9:05 AM EDT Narrative Resulting Agency Comment Spec In Lab Madhu Diana MD CHEMISTRY ORDERABLES [facility] [place] [address] documented in this encounter Visit Diagnoses Diagnosis Persistent atrial fibrillation Atrial fibrillation Atrial fibrillation Persistent atrial fibrillation Atrial fibrillation documented in this encounter Admitting Diagnoses Diagnosis Atrial fibrillation documented in this encounter Administered Medications Inactive Administered Medications - up to 3 most recent administrations Medication Order MAR Action Action Date Dose Rate Site amLODIPine (Norvasc) tablet 5 mg 5 mg, Oral, NIGHTLY, First dose on Laura 05/08/22 at 2100, Until Discontinued, Routine Given 05/08/2022 8:38 PM EDT 5 mg apixaban (Eliquis) tablet 2.5 mg 2.5 mg, Oral, 2 TIMES DAILY, First dose on Thu05/09/22 at 0900, Until Discontinued, Anticoagulant, Routine, Restricted anticoagulant, choose the most appropriate response: Approved indication of non-valvular atrial fibrillation Given 05/09/2022 8:28 AM EDT 2.5 mg aspirin EC tablet 81 mg 81 mg, Oral, DAILY, First dose on Thu05/09/22 at 0900, Until Discontinued, Recovery (Recovery-Hospital Unit), Routine Given 05/09/2022 8:28 AM EDT 81 mg atorvastatin (Lipitor) tablet 40 mg 40 mg, Oral, EVERY EVENING, First dose on Laura 05/08/22 at 2045, Until Discontinued, Routine Given 05/08/2022 8:38 PM EDT 40 mg calciTRIoL (Rocaltrol) capsule 0.5 mcg 0.5 mcg, Oral, DAILY, First dose on Laura 05/08/22 at 2045, Until Discontinued, Routine Given 05/09/2022 8:28 AM EDT 0.5 mcg Given 05/08/2022 8:38 PM EDT 0.5 mcg fentaNYL (pf) (50 mcg/mL) multi-dose injection 12.5 mcg 12.5 mcg, Intravenous, EVERY 5 MIN PRN, Starting on Laura 05/08/22 at 1947, Until Thu05/09/22 at 1405, Pain, Mild to moderate pain (1-5 out of 10), Hold for respiratory rate less than 10 per minute. Maximum dose 200 mcg over one hour, including OR administration. If ordered with HYDROmorphone or morphine, give HYDROmorphone or morphine first and use fentaNYL for breakthrough pain., PACU Recovery, Routine fentaNYL (pf) (50 mcg/mL) multi-dose injection 25 mcg 25 mcg, Intravenous, EVERY 5 MIN PRN, Starting on Laura 05/08/22 at 1947, Until Thu05/09/22 at 1405, Pain, Moderate to severe pain (6-10 out of 10), Hold for respiratory rate less than 10 per minute. Maximum dose 200 mcg over one hour, including OR administration. If ordered with HYDROmorphone or morphine, give HYDROmorphone or morphine first and use fentaNYL for breakthrough pain., PACU Recovery, Routine glipiZIDE XL (Glucotrol XL) tablet 10 mg 10 mg, Oral, 2 TIMES DAILY WITH MEALS, First dose on Thu05/09/22 at 0800, Until Discontinued, DO NOT CRUSH OR OPEN Consider holding dose if patient is not eating. , Routine Given 05/09/2022 8:28 AM EDT 10 mg hydrALAZINE (Apresoline) tablet 100 mg 100 mg, Oral, 2 TIMES DAILY, First dose on Thu05/09/22 at 0900, Until Discontinued, Routine Given 05/09/2022 8:27 AM EDT 100 mg lactated ringers infusion 1,000 mL, at 100 mL/hr, Intravenous, CONTINUOUS, Starting on Laura 05/08/22 at 0945, Until [facility] 05/08/22 at 1848, Day of Surgery (Day of Procedure) Restarted 05/08/2022 11:40 AM EDT New Bag 05/08/2022 9:35 AM EDT 1,000 mLs 100 mL/hr levothyroxine (Synthroid) tablet 137 mcg 137 mcg, Oral, DAILY, First dose on Thu05/09/22 at 0900, Until Discontinued, Routine Given 05/09/2022 8:28 AM EDT 137 mcg lidocaine (Xylocaine) 1% (10 mg/mL) injection 3 mg 3 mg (0.3 mL), Subcutaneous, ONCE PRN, 1 dose, Starting on Laura 05/08/22 at 0918, Until Laura 05/08/22 at 0936, for discomfort with PIV insertion, Day of Surgery (Day of Procedure), Routine Given 05/08/2022 9:36 AM EDT 3 mg metoprolol succinate XL (Toprol-XL) tablet 50 mg 50 mg, Oral, 2 TIMES DAILY, First dose on Thu05/09/22 at 0900, Until Discontinued, DO NOT CRUSH OR OPEN, Routine Given 05/09/2022 8:28 AM EDT 50 mg mycophenolate (Cellcept) capsule 250 mg 250 mg, Oral, 2 TIMES DAILY, First dose on Laura 05/08/22 at 2100, Until Discontinued, DO NOT CRUSH OR OPEN, Routine Given 05/09/2022 8:28 AM EDT 250 mg Given 05/08/2022 8:38 PM EDT 250 mg naloxone (Narcan) (0.4 mg/mL) injection 0.04 mg 0.04 mg, Intravenous, EVERY 5 MIN PRN, 3 doses, Starting on Laura 05/08/22 at 1947, Until Thu05/09/22 at 1405, Opioid Reversal, for respiratory rate less than 6 or unresponsive., May repeat every 5 minutes to increase respiratory rate. DO NOT exceed 0.12 mg total dose. Notify anesthesia immediately if administered., PACU Recovery, Routine ondansetron (pf) (Zofran) (2 mg/mL) injection 4 mg 4 mg, Intravenous, EVERY 30 MIN PRN, 2 doses, Starting on Laura 05/08/22 at 1947, Until Thu05/09/22 at 1405, Nausea, Maximum total dose of 8 mg (including OR administration). If multiple antiemetics ordered, use ondansetron first and if ineffective use prochlorperazine second and if ineffective use promethazine, PACU Recovery promethazine (Phenergan) (25 mg/mL) injection 6.25 mg 6.25 mg, Intravenous, EVERY 30 MIN PRN, Nausea, Starting on Laura 05/08/22 at 1947, 2 doses, Until Thu05/09/22 at 1405, Maximum total dose of 12.5 mg (including OR administration). VESICANT - Dilute with a minimum of 10 mL sodium chloride 0.9%. LARGE VEIN only. Inject over 10 minutes into the farthest port of a running IV infusion. Remain with the patient and STOP infusion immediately if patient reports burning. Avoid extravasation. If multiple antiemetics are ordered, use ondansetron first and if ineffective use prochlorperazine second and if ineffective use promethazine., PACU Recovery sodium chloride 0.9% infusion 100 mL/hr, Intravenous, CONTINUOUS, Starting on Laura 05/08/22 at 1400, Until Laura 05/08/22 at 1743, Recovery (Recovery-Hospital Unit) [facility] 05/08/2022 1:30 PM EDT 100 mL/hr 100 mL/hr tacrolimus (Prograf) capsule 1 mg 1 mg, Oral, NIGHTLY, First dose on Thu05/08/22 at 2100, Until Discontinued, DO NOT SPLIT, CRUSH OR OPEN, Routine Given 05/08/2022 8:38 PM EDT 1 mg tacrolimus (Prograf) capsule 2 mg 2 mg, Oral, DAILY, First dose on Thu05/09/22 at 0900, Until Discontinued, DO NOT SPLIT, CRUSH OR OPEN, Routine Given 05/09/2022 8:27 AM EDT 2 mg tamsulosin (Flomax) capsule 0.4 mg 0.4 mg, Oral, DAILY, First dose on Thu05/09/22 at 0900, Until Discontinued, DO NOT CRUSH OR OPEN, Routine Given 05/09/2022 8:28 AM EDT 0.4 mg documented in this encounter Active and Recently Administered Medications Times are shown in EDT. Scheduled Medication Order 05/07/2022 05/08/2022 05/09/2022 amLODIPine (Norvasc) tablet 5 mg 5 mg, Oral, NIGHTLY, First dose on Thu05/08/22 at 2100, Until Discontinued, Routine 2037 (Given - Provider: Kiki Flores RN) apixaban (Eliquis) tablet 2.5 mg 2.5 mg, Oral, 2 TIMES DAILY, First dose on Thu05/09/22 at 0900, Until Discontinued, Anticoagulant, Routine, Restricted anticoagulant, choose the most appropriate response: Approved indication of non-valvular atrial fibrillation 827 (Given - Provid er: Rhoda Velasquez RN) aspirin EC tablet 81 mg 81 mg, Oral, DAILY, First dose on Thu05/09/22 at 0900, Until Discontinued, Recovery (Recovery-Hospital Unit), Routine 827 (Given - Provid er: Rhoda Velasquez RN) atorvastatin (Lipitor) tablet 40 mg 40 mg, Oral, EVERY EVENING, First dose on Thu05/08/22 at 2045, Until Discontinued, Routine 2037 (Given - Provider: Kiki Flores RN) calciTRIoL (Rocaltrol) capsule 0.5 mcg 0.5 mcg, Oral, DAILY, First dose on Thu05/08/22 at 2045, Until Discontinued, Routine 2037 (Given - Provider: Kiki Flores RN) 827 (Given - Provider: Rhoda Velasquez RN) glipiZIDE XL (Glucotrol XL) tablet 10 mg 10 mg, Oral, 2 TIMES DAILY WITH MEALS, First dose on Thu05/09/22 at 0800, Until Discontinued, DO NOT CRUSH OR OPEN Consider holding dose if patient is not eating. , Routine 827 (Given - Provid er: Rhoda Velasquez RN) hydrALAZINE (Apresoline) tablet 100 mg 100 mg, Oral, 2 TIMES DAILY, First dose on Thu05/09/22 at 0900, Until Discontinued, Routine 826 (Given - Provid er: Rhoda Velasquez RN) levothyroxine (Synthroid) tablet 137 mcg 137 mcg, Oral, DAILY, First dose on Thu05/09/22 at 0900, Until Discontinued, Routine 827 (Given - Provid er: Rhoda Velasquez RN) metoprolol succinate XL (Toprol-XL) tablet 50 mg 50 mg, Oral, 2 TIMES DAILY, First dose on Thu05/09/22 at 0900, Until Discontinued, DO NOT CRUSH OR OPEN, Routine 827 (Given - Provid er: Rhoda Velasquez RN) mycophenolate (Cellcept) capsule 250 mg 250 mg, Oral, 2 TIMES DAILY, First dose on Thu05/08/22 at 2100, Until Discontinued, DO NOT CRUSH OR OPEN, Routine 2037 (Given - Provider: Kiki Flores RN) 827 (Given - Provider: Rhoda Velasquez RN) tacrolimus (Prograf) capsule 1 mg 1 mg, Oral, NIGHTLY, First dose on Thu05/08/22 at 2100, Until Discontinued, DO NOT SPLIT, CRUSH OR OPEN, Routine 2037 (Given - Provider: Kiki Flores RN) tacrolimus (Prograf) capsule 2 mg 2 mg, Oral, DAILY, First dose on Thu05/09/22 at 0900, Until Discontinued, DO NOT SPLIT, CRUSH OR OPEN, Routine 826 (Given - Provid er: Rhoda Velasquez, JADEN) tamsulosin (Flomax) capsule 0.4 mg 0.4 mg, Oral, DAILY, First dose on Thu05/09/22 at 0900, Until Discontinued, DO NOT CRUSH OR OPEN, Routine 0828 (Given - Provid er: Rhoda Velasquez RN) Continuous Medication Order 05/07/2022 05/08/2022 05/09/2022 lactated ringers infusion (CANCELED) 1,000 mL, at 100 mL/hr, Intravenous, CONTINUOUS, Starting on Laura 05/08/22 at 0945, Until Laura 05/08/22 at 1848, Day of Surgery (Day of Procedure) 0935 (New Bag - Provider: Gibson Urrutia RN)1139 (Paused - Provider: Bladimir Zee CRNA - Comment: Switch to gravity)1140 (Restarted - Provider: Bladimir Zee CRNA)1303 (Anesthesia Volume Adjustment - Provider: Bladimir Zee CRNA)1848 (Stopped - Provider: Jackie Haider RN) sodium chloride 0.9% infusion () 100 mL/hr, Intravenous, CONTINUOUS, Starting on Laura 05/08/22 at 1400, Until Laura 05/08/22 at 1743, Recovery (Recovery-Hospital Unit) 1330 (New Bag - Provider: Kay Hooks RN) PRN Medication Order 05/07/2022 05/08/2022 05/09/2022 aspirin chewable tablet (CANCELED) ONCE PRN, Starting on Laura 05/08/22 at 1147, Until Laura 05/08/22 at 1848, Cath (Intra-Procedure), Routine 1147 (Given - Provider: Steffen Mora, JADEN) atropine (0.1 mg/mL) injection 1 mg 1 mg, Intravenous, EVERY 5 MIN PRN, 2 doses, Starting on Laura 05/08/22 at 1325, Until Thu05/09/22 at 1405, Other, vasovagal episode, Call interventional MD. , Routine fentaNYL (pf) (50 mcg/mL) multi-dose injection 12.5 mcg(Linked Group 1) 12.5 mcg, Intravenous, EVERY 5 MIN PRN, Starting on Laura 05/08/22 at 1947, Until Thu05/09/22 at 1405, Pain, Mild to moderate pain (1-5 out of 10), Hold for respiratory rate less than 10 per minute. Maximum dose 200 mcg over one hour, including OR administration. If ordered with HYDROmorphone or morphine, give HYDROmorphone or morphine first and use fentaNYL for breakthrough pain., PACU Recovery, Routine fentaNYL (pf) (50 mcg/mL) multi-dose injection 25 mcg(Linked Group 1) 25 mcg, Intravenous, EVERY 5 MIN PRN, Starting on Laura 05/08/22 at 1947, Until Thu05/09/22 at 1405, Pain, Moderate to severe pain (6-10 out of 10), Hold for respiratory rate less than 10 per minute. Maximum dose 200 mcg over one hour, including OR administration. If ordered with HYDROmorphone or morphine, give HYDROmorphone or morphine first and use fentaNYL for breakthrough pain., PACU Recovery, Routine lidocaine (Xylocaine) 1% (10 mg/mL) injection 3 mg (COMPLETED) 3 mg (0.3 mL), Subcutaneous, ONCE PRN, 1 dose, Starting on Laura 05/08/22 at 0918, Until Laura 05/08/22 at 0936, for discomfort with PIV insertion, Day of Surgery (Day of Procedure), Routine 0936 (Given - Provider: Gibson Urrutia RN) naloxone (Narcan) (0.4 mg/mL) injection 0.04 mg 0.04 mg, Intravenous, EVERY 5 MIN PRN, 3 doses, Starting on Laura 05/08/22 at 1947, Until Thu05/09/22 at 1405, Opioid Reversal, for respiratory rate less than 6 or unresponsive., May repeat every 5 minutes to increase respiratory rate. DO NOT exceed 0.12 mg total dose. Notify anesthesia immediately if administered., PACU Recovery, Routine ondansetron (pf) (Zofran) (2 mg/mL) injection 4 mg 4 mg, Intravenous, EVERY 30 MIN PRN, 2 doses, Starting on Laura 05/08/22 at 1947, Until Thu05/09/22 at 1405, Nausea, Maximum total dose of 8 mg (including OR administration). If multiple antiemetics ordered, use ondansetron first and if ineffective use prochlorperazine second and if ineffective use promethazine, PACU Recovery promethazine (Phenergan) (25 mg/mL) injection 6.25 mg 6.25 mg, Intravenous, EVERY 30 MIN PRN, Nausea, Starting on Laura 05/08/22 at 1947, 2 doses, Until Thu05/09/22 at 1405, Maximum total dose of 12.5 mg (including OR administration). VESICANT - Dilute with a minimum of 10 mL sodium chloride 0.9%. LARGE VEIN only. Inject over 10 minutes into the farthest port of a running IV infusion. Remain with the patient and STOP infusion immediately if patient reports burning. Avoid extravasation. If multiple antiemetics are ordered, use ondansetron first and if ineffective use prochlorperazine second and if ineffective use promethazine., PACU Recovery Linked Groups Order Group 1: fentaNYL (pf) (50 mcg/mL) multi-dose injection 12.5 mcgJump to med 12.5 mcg, Intravenous, EVERY 5 MIN PRN, Starting on Laura 05/08/22 at 1947, Until Thu05/09/22 at 1405, Pain, Mild to moderate pain (1-5 out of 10), Hold for respiratory rate less than 10 per minute. Maximum dose 200 mcg over one hour, including OR administration. If ordered with HYDROmorphone or morphine, give HYDROmorphone or morphine first and use fentaNYL for breakthrough pain., PACU Recovery, Routine Or fentaNYL (pf) (50 mcg/mL) multi-dose injection 25 mcgJump to med 25 mcg, Intravenous, EVERY 5 MIN PRN, Starting on Laura 05/08/22 at 1947, Until Thu05/09/22 at 1405, Pain, Moderate to severe pain (6-10 out of 10), Hold for respiratory rate less than 10 per minute. Maximum dose 200 mcg over one hour, including OR administration. If ordered with HYDROmorphone or morphine, give HYDROmorphone or morphine first and use fentaNYL for breakthrough pain., PACU Recovery, Routine documented in this encounter Care Teams Product Grader Relationship Specialty Start Date End Date Urbano Jimenez DO [address] [place] [address] PCP - General Family Medicine 03/18/22 Ruchi Valles RN Nurse [facility] Transplant Surgery 07/30/15 documented as of this encounter
--- OUTSIDE RECORDS SUMMARY | 2024-02-14 11:17 | XMS_ITS | Encounter Summary ---
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 Author Home Medication Compliance and Understanding Patient Facing Action Plan On track( 017 10:41 AM EDT) No Selena Cisneros [facility] Note: Patient Goal: Clear hepatitis C Timeframe to meet goal: within 12 weeks of therapy documented as of this encounter Procedures Procedure Name Priority Date/Time Associated Diagnosis Comments ECG SCAN Routine 02/18/2022 documented in this encounter Results * Scan Doc: ECG (02/18/2022) Historical Provider MD PAIZ MGR SCAN EX T ORDR/RSLT documented in this encounter Visit Diagnoses Not on filedocumented in this encounter Care Teams Foundation 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
--- OUTSIDE RECORDS SUMMARY | 2024-02-14 11:17 | XMS_ITS | Encounter Summary ---
[place] [address] Care Team Providers Care Inventory Control Manager Name Role Phone PerrydebUrbano DO Primary Care Provider [phone] Encounter Details Date Type Department Care Team (Latest Contact Info) Description 03/18/2022 10:25 AM EDT Laboratory Appointment Lab [address] [place] [id number] H/O kidney transplant; Vitamin D deficiency; correction current use of 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 drug Social History [...] EDT Hospital Encounter Non-[place] [phone] Arrived documented as of this encounter Goals Goal Patient Goal Type Associated Problems Recent Progress Patient-Stated? 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 PROTEIN/CREATININE RATIO, URINE Routine 03/18/2022 11:01 AM EDT HC PHOSPHORUS, URINE Routine 03/18/2022 11:01 AM EDT H/O kidney transplant Vitamin D deficiency 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 HC MAGNESIUM, URINE Routine 03/18/2022 1 1:01 AM EDT H/O kidney transplant Vitamin D deficiency correction current use of 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 drug URINALYSIS WITH REFLEX CULTURE Routine 03/18/2022 11:01 AM EDT COVID-19 SPIKE ANTIBODY Routine 03/18/2022 10:58 AM EDT LIPID PANEL (NO REFLEX) Routine 03/18/2022 10:58 AM EDT HC PARATHYROID HORMONE(PTH INTACT Routine 03/18/2022 10:58 AM EDT H/O kidney transplant Vitamin D deficiency 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 HC BK VIRUS QUANT PCR,PLASMA Routine 03/18/2022 10:58 AM EDT H/O kidney transplant Vitamin D deficiency 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 URIC ACID Routine 03/18/2022 10:58 AM EDT PHOSPHORUS Routine 03/18/2022 10:58 AM EDT MAGNESIUM Routine 03/18/2022 10:58 AM EDT HC HEMOGLOBIN A1C Routine 03/18/2022 10: 58 AM EDT H/O kidney transplant Vitamin D deficiency correction current use of 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 drug CHOLESTEROL, TOTAL Routine 03/18/2022 10 :58 AM EDT COMPREHENSIVE METABOLIC PANEL Routine 03/18/2022 10:58 AM EDT documented in this encounter Results * Urinalysis Microscopic Exam (03/18/2022 11:01 AM EDT) RBC, Urine 2 0 - 3 /HPF [facility] WBC, Urine 1 0 - 3 /HPF [facility] Urine Urine / Unknown 03/18/2022 1 1:01 AM EDT 03/18/2022 11:08 AM EDT Narrative Resulting Agency Comment Spec In Lab Tal Eagle MD URINE ORDERABLES Performing Organization Address City/[facility] Co de Phone Number [facility] [place] [address] * (ABNORMAL) Protein/Creatinine Ratio, urine (03/18/2022 11:01 AM EDT) Creatinine, Urine 146 mg/dL [facility] Protein, Urine 54(H) 0 - 12 mg/dL [facility] Protein / Creatinine Ratio, Urine 0.4 ratio [facility] Urine Urine / Unknown 03/18/2022 1 1:01 AM EDT 03/18/2022 11:20 AM EDT Narrative Resulting Agency Comment Spec In Lab Tal Eagle MD URINE ORDERABLES Performing Organization Address [facility] Co de Phone Number [facility] [place] [address] * (ABNORMAL) Urinalysis with reflex Culture (03/18/2022 11:01 AM EDT) Glucose, Urine Dipstick Negative Negative mg/dL [facility] Protein, Urine Dipstick 100(A) Negative mg/dL [facility] Bilirubin, Urine Dipstick Negative Negative mg/dL [facility] Comment: Clinical correlation required for positive Urine Bilirubin results as false positive may occur with some drugs and drug related products. If a false positive is suspected a serum total bilirubin should be considered if clinically indicated. Urobilinogen, Urine Dipstick Normal Normal mg/dL [facility] pH, Urn (dipstick) 6.5 5.0 - 8.0 [facility] Blood, Urine Dipstick Negative Negative mg/dL [facility] Ketone, Urine Dipstick Trace(A) Negative mg/dL [facility] Nitrite, Urine Dipstick Negative Negative [facility] Leukocytes, Urine Dipstick Negative Negative mcL [facility] Appearance, Urine Dipstick Clear Clear [facility] Specific [place] Urine Automated 1.022 1.005 - 1.030 [facility] Color, Urine Dipstick Dark Yellow Yellow [facility] Reflex to Culture No [facility] Urine Urine / Unknown 03/18/2022 1 1:01 AM EDT 03/18/2022 11:08 AM EDT Narrative Resulting Agency Comment Spec In Lab Tal Eagle MD URINE ORDERABLES Performing Organization Address City/[facility] Co de Phone Number [facility] [place] [address] * Calcium Creatinine Ratio, random urine (03/18/2022 11:01 AM EDT) Calcium, Urine 11.9 mg/dL [facility] Creatinine, Urine 145 mg/dL [facility] Calcium / Creatinine Ratio, Urine 0.08 ratio [facility] Urine 03/18/2022 11:0 1 AM EDT 03/18/2022 11:20 AM EDT Narrative Resulting Agency Comment Spec In Lab Tal Eagle MD URINE ORDERABLES Performing Organization Address City/[facility]/ZIP Co de Phone Number [facility] [place] [address] * Magnesium, urine, random (03/18/2022 11:01 AM EDT) Magnesium, Urine 2.28 mmol/L [facility] Urine 03/18/2022 11:0 1 AM EDT 03/18/2022 11:20 AM EDT Narrative Resulting Agency Comment Spec In Lab Tal Eagle MD URINE ORDERABLES [facility] [place] [address] * Phosphorus, urine, random (03/18/2022 11:01 AM EDT) Phosphorus, Urine 26.0 mg/dL [facility] Urine 03/18/2022 11:0 1 AM EDT 03/18/2022 11:20 AM EDT Narrative Resulting Agency Comment Spec In Lab Tal Eagle MD URINE ORDERABLES Performing Organization Address [facility]/ZIP Co de Phone Number [facility] [place] [address] * Lavender Tube HOLD (03/18/2022 10:58 AM EDT) Lavender Hold Sample in lab. [facility] Blood Venous Draw / Unknown 03/18/2022 10:58 AM EDT 03/18/2022 11:20 AM EDT Tal Eagle MD HEMATOLOGY ORDERA BLES Performing Organization Address City/[facility]/ZIP Co de Phone Number [facility] [place] [address] * Lavender Tube HOLD (03/18/2022 10:58 AM EDT) Lavender Hold Sample in lab. [facility] Blood Venous Draw / Unknown 03/18/2022 10:58 AM EDT 03/18/2022 11:18 AM EDT Tal Eagle MD HEMATOLOGY ORDERA BLES [facility] [place] [address] * Lavender Tube HOLD (03/18/2022 10:58 AM EDT) Lavender Hold Sample in lab. [facility] Blood Venous Draw / Unknown 03/18/2022 10:58 AM EDT 03/18/2022 11:18 AM EDT Tal Eagle MD HEMATOLOGY ORDERA BLES [facility] [place] [address] * Lipid Panel (No Reflex) (03/18/2022 10:58 AM EDT) Cholesterol, Total 81 mg/dL [facility] Comment: Lower Risk: <200 mg/dL Average Risk: 200-239 mg/dL Higher Risk: >sa=838 mg/dL Triglyceride 115 mg/dL [facility] Comment: Average Risk/Lower Risk: <150 mg/dL Borderline High Risk: 150-199 mg/dL High Risk: 200-499 mg/dL Very High Risk: >oh=582 mg/dL HDL Cholesterol 36 mg/dL [facility] Comment: Males: ?? Higher Risk: <40 mg/dL Females: ?? Higher Risk: <50 mg/dL LDL Cholesterol 22 mg/dL [facility] Comment: Lowest Risk: <100 mg/dL Lower Risk: 100-129 mg/dL Borderline High Risk: 130-159 mg/dL High Risk: 160-189 mg/dL Very High Risk: >jd=635 mg/dL Cholesterol/HDL Ratio 2.2 ratio [facility] Lipid Interpretation See Note [facility] Comment: Lipid management should be guided by a patient? s ASCVD risk, goals and preferences. ACC/AHA Guidelines recommend high intensity statin if clinical ASCVD or LDL greater than or equal to 190 mg/dL. http://tinyurl.com/QRV-NVK-Hhjafysqn Adults aged 40-75 with LDL 70-189 mg/dL should have their 10 year ASCVD risk estimated with the ACC/AHA ASCVD risk estimator and drafter supervisor http://tools.acc.org/GGOIH-Glkx-Gvkcbjhvl/ Statin should be discussed if risk greater [...] critical component of ASCVD risk reduction. Blood Venous Draw / Unknown 03/18/2022 10:58 AM EDT 03/18/2022 11:13 AM EDT Narrative Resulting Agency Comment Spec In Lab Tal Eagle MD CHEMISTRY ORDERAB LES [facility] [place] [address] * COVID-19 Jah Antibody (03/18/2022 10:58 AM EDT) SARS-CoV-2 Jah Ab Detected [facility] Comment: This is a total antibody assay to the spike protein of SARS-CoV-2. It does not distinguish between IgG and IgM antibodies to SARS-CoV-2. This test will detect antibodies made against the spike protein due to vaccination or from a previous infection. Results cannot be used to diagnose acute SARS-CoV-2 (Severe acute respiratory syndrome coronavirus 2, also known as 2019 novel coronavirus or 2019-nCoV) infection. A 'Not Detected' result does not rule out SARS-CoV-2 infection, particularly in those who have been in contact with the virus. Follow-up testing with a molecular diagnostic test to SARS-CoV-2 should be considered for individuals with symptoms of active SARS-CoV-2 infection. A 'Detected' result cannot be interpreted as conclusive evidence of protective immunity to the SARS-CoV-2 virus. Detection may be due to a past infection with vyy-FSJO-WwB-2 coronavirus strains, such as coronavirus HKU1, NL63, OC43, or 229E. This test was performed using the Elecsys Ihdh-IHFD-GgI-2 S total antibody assay on the Kirsten June e801 analyzer. This serology test is available following FDA Emergency Use Authorization, however it has not been reviewed by the FDA, nor is it FDA cleared or approved. The performance characteristics of this test were determined by the Department of Pathology and Laboratory Medicine at [facility]. The laboratory is certified under the Clinical Laboratory Improvement Amendments of 1988 (CLIA), 42 U.S.C. section 263a, to perform high complexity tests. Results should not be used as the sole basis to diagnose or exclude SARS-CoV-2 infection, to inform infection status, or to screen donated blood. CDC COVID-19 criteria for testing on human specimens and clinical management guidance information are available at the CDC Coronavirus Disease 2019 (COVID-19) webpage under Information for Healthcare Professionals (https://www.cdc.gov/coronavirus/2019-ncov/hcp/index.html) Additional information about this and other EUA tests can be found in provider and patient fact sheets at the following FDA website: https://www.fda.gov/medical-devices/ktgpuflknlx-zcbgyva-2290-itpyb-17-awfsvfezh- use-a jqfvyllxfyqwt-ekadxrw-fvijyol/mgzez-oncjayosede-mseu Blood Venous Draw / Unknown 03/18/2022 10:58 AM EDT 03/18/2022 11:13 AM EDT Tal Eagle MD CHEMISTRY ORDERAB LES Performing Organization Address City/State/[facility] Co de Phone Number [facility] [place] [address] * Tacrolimus level (03/18/2022 10:58 AM EDT) Tacrolimus 8.0 ng/mL [facility] Comment: Trough therapeutic range is 3-15 ng/mL, depending upon transplant type, time since transplantation, use of other 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 drugs, comorbidities, and test method used. Tacrolimus concentration determined using the K[employer]en Elecsys Tacrolimus electrochemiluminescence competitive immunoassay. Results from different samples types and methods are not interchangeable. Blood Venous Draw / Unknown 03/18/2022 10:58 AM EDT 03/18/2022 11:13 AM EDT Narrative Resulting Agency Comment Spec In Lab Tal Eagle MD CHEMISTRY ORDERAB LES [facility] [place] [address] * Cholesterol, total (03/18/2022 10:58 AM EDT) Cholesterol, Total 81 mg/dL [facility] Comment: Lower Risk: <200 mg/dL Average Risk: 200-239 mg/dL Higher Risk: >gc=203 mg/dL Lipid Interpretation See Note [facility] Comment: Lipid management should be guided by a patient? s ASCVD risk, goals and preferences. ACC/AHA Guidelines recommend high intensity statin if clinical ASCVD or LDL greater than or equal to 190 mg/dL. http://Zang.com/EHP-JWA-Jqttknrfp Adults aged 40-75 with LDL 70-189 mg/dL should have their 10 year ASCVD risk estimated with the ACC/AHA ASCVD risk estimator and drafter supervisor http://tools.acc.org/IFTUK-Rysj-Eqsqxpnxh/ Statin should be discussed if risk greater [...] critical component of ASCVD risk reduction. Blood Venous Draw / Unknown 03/18/2022 10:58 AM EDT 03/18/2022 11:13 AM EDT Narrative Resulting Agency Comment Spec In Lab Tal Eagle MD CHEMISTRY ORDERAB LES [facility] [place] [address] * (ABNORMAL) Comprehensive metabolic panel (non-fasting) (03/18/2022 10:58 AM EDT) Glucose 134 65 - 199 mg/dL [facility] Comment:Diabetes: >=200 mg/d L plus symptoms Blood Urea Nitrogen 22(H) 10 - 20 mg/dL [facility] Creatinine 1.55(H) 0.80 - 1.50 mg/dL [facility] Sodium 142 135 - 145 mmol/L [facility] Potassium 4.5 3.5 - 5.0 mmol/L [facility] Comment: Please note: ??Patients with WBC >100,000 may have falsely elevated Potassium levels. ??For accurate Potassium quantification in these patients send serum separator tube (gold top) for subsequent determinations. ??Contact the Clinical Chemistry Laboratory if there are any questions. Chloride 102 98 - 107 mmol/L [facility] Carbon Dioxide 30 22 - 31 mmol/L [facility] Anion Gap 10 5 - 15 mmol/L [facility] Calcium 10.1 8.5 - 10.5 mg/dL [facility] Protein, Total 6.9 6.1 - 8.0 g/dL [facility] Albumin 4.3 3.2 - 5.2 g/dL [facility] Aspartate Aminotransferase 21 0 - 39 unit/L [facility] Alanine Aminotransferase 24 0 - 55 unit/L [facility] Alkaline Phosphatase 78 40 - 130 unit/L [facility] Bilirubin, Total 3.1(H) 0.2 - 1.3 mg/dL [facility] Est Glomerular Filtration Rate 47(L) >=60 mL/min/1. 73 m?? [facility] Comment: This patient's estimated [...] and symptoms in addition to eGFR. Blood Venous Draw / Unknown 03/18/2022 10:58 AM EDT 03/18/2022 11:13 AM EDT Narrative Resulting Agency Comment Spec In Lab Tal Eagle MD CHEMISTRY ORDERAB LES Performing Organization Address City/[facility] Co de Phone Number [facility] [place] [address] * Uric acid (03/18/2022 10:58 AM EDT) Uric Acid 8.1 3.5 - 8.5 mg/dL [facility] Blood Venous Draw / Unknown 03/18/2022 10:58 AM EDT 03/18/2022 11:13 AM EDT Narrative Resulting Agency Comment Spec In Lab Tal Eagle MD CHEMISTRY ORDERAB LES Performing Organization Address [facility] de Phone Number [facility] [place] [address] * Magnesium (03/18/2022 10:58 AM EDT) Magnesium 0.76 0.69 - 1.07 mmol/L [facility] Blood Venous Draw / Unknown 03/18/2022 10:58 AM EDT 03/18/2022 11:13 AM EDT Narrative Resulting Agency Comment Spec In Lab Tal Eagle MD CHEMISTRY ORDERAB LES Performing Organization Address [facility] Co de Phone Number [facility] [place] [address] * Phosphorus (03/18/2022 10:58 AM EDT) Phosphorus 2.5 2.5 - 4.5 mg/dL [facility] Blood Venous Draw / Unknown 03/18/2022 10:58 AM EDT 03/18/2022 11:13 AM EDT Narrative Resulting Agency Comment Spec In Lab Tal Eagle MD CHEMISTRY ORDERAB LES Performing Organization Address City/[facility] Co de Phone Number [facility] [place] [address] * Differential, Automated (03/18/2022 10:58 AM EDT) [facility] Neutrophil % 66.2 % [facility] Neutrophil Absolute 5.21 1.70 - 6.10 x10(3)/[facility] Lymph % 20.7 % [facility] Lymphocytes Abs 1.6 0.9 - 3.2 x10(3)/[facility] Monocyte % 8.3 % [facility] Monocyte Abs 0.6 0.3 - 0.9 x10(3)/[facility] Eos % 3.6 % [facility] Eosinophils Abs 0.3 0.0 - 0.4 x10(3)/[facility] Basophil % 0.8 % [facility] Baso Absolute 0.1 0.0 - 0.1 x10(3)/[facility] Immature Gran % 0.40 % [facility] Comment: Immature granulocytes(IG's)percentage and absolute count will include metamyelocytes, myelocytes, and promyelocytes. Blood smears from CBCs yielding IG's will be scanned manually for concordance. If this scan disagrees with the automated IG or if promyelocytes are noted, a manual differential will be performed. Immature Gran Absolute 0.03 0.00 - 0.04 x10(3)/[facility] Blood Venous Draw / Unknown 03/18/2022 10:58 AM EDT 03/18/2022 11:13 AM EDT Narrative Resulting Agency Comment Spec In Lab Tal Eagle MD HEMATOLOGY ORDERA BLES [facility] [place] [address] * Hemogram (03/18/2022 10:58 AM EDT) [facility] White Blood Cell 7.9 4.0 - 9.5 x10(3)/[facility] Red Blood Cell 4.83 4.58 - 5.54 x10(6)/[facility] Hemoglobin 14.9 13.7 - 16.5 g/dL [facility] Hematocrit 42.9 40.5 - 48.5 % [facility] Mean Cell Volume 88.8 82.9 - 93.1 [facility] Mean Cell Hemoglobin 30.8 27.5 - 32.1 pg [facility] Mean Cell Hemoglobin Concentration 34.7 32.0 - 35.7 g/dL [facility] Platelet 248 145 - 357 x10(3)/[facility] RDW Standard Deviation 42.1 36.0 - 45.0 [facility] RDW coefficient of variation 13.0 11.4 - 13.8 % [facility] Mean Platelet Volume 9.5 7.6 - 12.9 [facility] NRBC% auto 0.0 % [facility] NRBC Absolute 0.000 0.000 - 0.000 x10(3)/[facility] Blood Venous Draw / Unknown 03/18/2022 10:58 AM EDT 03/18/2022 11:13 AM EDT Narrative Resulting Agency Comment Spec In Lab Tal Eagle MD HEMATOLOGY ORDERA BLES [facility] [place] [address] * (ABNORMAL) Hemoglobin A1c (03/18/2022 10:58 AM EDT) Hemoglobin A1c 6.6(H) 4.3 - 5.6 % [facility] Comment: Reference Range: 4.3 - [...] Mellitus, Diabetes Care 2013; 36: Suppl. 1, S67-74 Estimated Average Glucose See note mg/dL [facility] Comment: Estimated Average Glucose not [...] into estimated average glucose values. ??Diabetes Care 2008:31(8):6266-2761. Blood 03/18/2022 10:5 8 AM EDT 03/18/2022 11:17 AM EDT Narrative Resulting Agency Comment Spec In Lab Tal Eagle MD CHEMISTRY ORDERAB LES [facility] [place] [address] * Reticulocyte Count (03/18/2022 10:58 AM EDT) Reticulocyte % 1.8 0.7 - 2.6 % [facility] Retic Abs # 0.080 0.030 - 0.120 x10(6)/mcL [facility] Immature Retic% 10.0 0.0 - 15.6 % [facility] Reticulated Hgb 35.2 31.3 - 40.2 pg [facility] Blood 03/18/2022 10:5 8 AM EDT 03/18/2022 11:15 AM EDT Narrative Resulting Agency Comment Spec In Lab Tal Eagle MD HEMATOLOGY ORDERA BLES Performing Organization Address City/[facility]/ZIP Co de Phone Number [facility] [place] [address] * PTH (03/18/2022 10:58 AM EDT) Parathyroid Hormone 38 15 - 65 pg/mL [facility] Blood 03/18/2022 10:5 8 AM EDT 03/18/2022 11:17 AM EDT Narrative Resulting Agency Comment Spec In Lab Tal Eagle MD CHEMISTRY ORDERAB LES Performing Organization Address City/[facility]/ZIP Co de Phone Number [facility] [place] [address] * Vitamin D, 25-Hydroxy (03/18/2022 10:58 AM EDT) Vitamin D Total 25 OH 39 21 - 100 ng/mL [facility] Vit D Interp Sufficient [facility] Blood 03/18/2022 10:5 8 AM EDT 03/18/2022 11:13 AM EDT Narrative Resulting Agency Comment Spec In Lab Tal Eagle MD CHEMISTRY ORDERAB LES Performing Organization Address City/[facility]/ZIP Co de Phone Number [facility] [place] [address] * 1,25-dihydroxycholecalciferol (03/18/2022 10:58 AM EDT) Pathologist [facility] Vit D 1,25 Dihydroxy (NOVEMBER) 43 18 - 64 pg/mL [facility] Comment: ADDITIONAL INFORMATION This test was developed and its performance characteristics determined by [facility] in a manner consistent with CLIA requirements. This test has not been cleared or approved by the U.S. Food and Drug Administration. Test Performed by: [facility] [address] [place] [address] Conference Organizer: Edinson Garcia M.D. Ph.D.; CLIA# [id number] Blood 03/18/2022 10:5 8 AM EDT 03/18/2022 1:56 PM EDT Narrative Resulting Agency Comment Spec In Lab Tal Egale MD LAB SEND OUT ORDE RABLES Performing Organization Address [facility]/ZIP Co de Phone Number [facility] [place] [address] * Gold Tube HOLD (03/18/2022 10:58 AM EDT) [facility] Gold Hold Sample in lab. [facility] Blood 03/18/2022 10:5 8 AM EDT 03/18/2022 11:13 AM EDT Tal Eagle MD CHEMISTRY ORDERAB LES Performing Organization Address [facility]/ZIP Co de Phone Number [facility] [place] [address] * BKV Quant Blood (03/18/2022 10:58 AM EDT) [facility] BKV Blood Result Not Detected Not Detected IU/mL [facility] Comment: Indication for Study: Monitoring BKV DNA Analysis: The june BKV test is an in vitro nucleic acid amplification tests using real-time polymerase chain reaction (PCR) assay for the quantitative measurement of BK virus (BKV) DNA in human EDTA plasma. Sample: EDTA plasma Method: june BKV test used with the 6800 platform (Kirsten) Linear Range: 21.5 - 1.0 x 10^8 IU/mL (1.33 - 8.00 log IU/mL) Note: The Kirsten june BKV assay has been cleared by the U.S. Food and Drug Administration for clinical testing. 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
--- OUTSIDE RECORDS SUMMARY | 2024-02-14 11:17 | XMS_ITS | Encounter Summary ---
[place] [address] Care Team Providers Care Artificial Leather Calender Operator Name Role Phone Urbano Jimenez DO Primary Care Provider [phone] Reason for Referral * Diagnostic Test (Routine) - Closed Specialty Diagnoses / Procedures Referred By Humberto t Referred To Contact Cardiology Diagnoses Persistent atrial fibrillation Procedures Transesophageal Echocardiogram (DAVEY) Tal Diana MD [facility] [place] [address] [facility] [place] [address] Referral ID Status Reason Start Date Expiration Date V isits Requested Visits Authorized [id number] Closed Specialty Service Requested 04/17/2022 07/15/2022 1 1 Encounter Details Date Type Department Care Team (Late st Contact Info) Description 04/08/2022 Orders Only Cardiology at [address] [address] Tal Diana MD [facility] [place] [address] Persistent atrial fibrillation Social History [...] AM EDT Hospital Encounter Non-Invasive [place] [address] Arrived documented as of this encounter Goals Goal Patient Goal Type Associated Problems Recent Progress Patient-Stated? Author DH Home Medication Compliance and Understanding Patient Facing Action Plan On track( 017 10:41 AM EDT) No Selena Cisneros, [facility] Note: Patient Goal: Clear hepatitis C Timeframe to meet goal: within 12 weeks of therapy documented as of this encounter Results * DAVEY FOR GUIDANCE (05/08/2022 12:58 PM EDT) EF 45 HEARTLAB SYSTEM Anatomical Region Laterality Modality Cardiac Other 05/08/2022 11:5 8 AM EDT Narrative 05/08/2022 3:12 PM EDT ? Transesophageal Echocardiogram Report Name: ETHEL BOLDEN ?Study Date: 05/08/2022 11:58 AM ? Patient Location: [place] CA06 A : 1950 ? Height: 180 cm ? Account: [id number] Age: 71 yrs ? Weight: 101 kg Gender: Male ?BSA: 2.2 m2 Ordering Physician: GENA CHERRY Referring Physician: TAL DIANA Performed By: Damien Ellis MD Reason For Study: Atrial Fibrillation Exam Location: [facility]. Interpretation Summary DAVEY performed to guide BATOOL closure in catheterization laboratory. Baseline: No BATOOL thrombus. Max os diameter of ~22 mm. Small pericardial effusion. Post: 27 mm Watchman FLX device well-seated within BATOOL. No mary-device leak. No change in pericardial effusion. Aras-me-ngady flow across atrial septostomy. See report for [...] MD - 05/08/2022 Transesophageal Echocardiogram Report Name: ETHEL BOLDEN Study Date: :58 AM Patient Location: [address] : 1950 Height: 180 cm Account: [id number] Age: 71 yrs Weight: 101 kg Gender: Male BSA: 2.2 m2 Ordering Physician: GENA CHERRY Referring Physician: TAL DIANA Performed By: Damien Ellis MD Reason For Study: Atrial Fibrillation Exam Location: [facility]. Interpretation Summary DAVEY performed to guide BATOOL closure in catheterization laboratory. Baseline: No BATOOL thrombus. Max os diameter of ~22 mm. Small pericardialeffusion. Post: 27 mm Watchman FLX device well-seated within BATOOL. No mary-deviceleak. No change in pericardial effusion. Gywd-fn-ksdag flow across atrialseptostomy. See report for additional [...] 2.3 cm2 Gena Cherry MD ECHO ORDERABLES documented in this encounter Visit Diagnoses Diagnosis Persistent atrial fibrillation Atrial fibrillation documented in this encounter Care Teams Artificial Leather Calender Operator Relationship Specialty Start Date End Date Urbano Jimenez DO [address] [place] [address] PCP - General Family Medicine 03/18/22 Ruchi Valles RN Nurse Clinic Transplant Surgery 07/30/15 documented as of this encounter
--- OUTSIDE RECORDS SUMMARY | 2024-02-14 11:17 | XMS_ITS | Encounter Summary ---
[place] [address] Care Team Providers Care Assistant Auditor Name Role Phone PerrydebUrbano DO Primary Care Provider Encounter Details Date Type Department Care Team (Late st Contact Info) Description 04/08/2022 Notes Only Cardiology at [address] [address] Nazia Coleman RN Social History Tobacco Use Types Packs/Day [...] as of this encounter Progress Notes * Nazia Coleman RN - 04/08/2022 1:12 PM EDTSummary: Structural Heart Received message noting that mr Bolden accepted 05/08/2022 date for left atrial appendage. Attempted call back to review instructions, contact information left on . Plan: SoT BATOOL Arana May 3 documented in this encounter Plan of Treatment Upcoming Encounters Date Type Department Care Team (Late st Contact Info) Description 04/15/2024 10:00 AM EDT Hospital Encounter Non[place] [address] Arrived documented as of this encounter Goals [...] on filedocumented in this encounter Care Teams Assistant Auditor Relationship Specialty Start Date End Date Urbano Jimenez DO [facility] [place] [address] PCP - General Family Medicine 03/18/22 Ruchi Valles RN Nurse Clinic Transplant Surgery 07/30/15 documented as of this encounter
--- OUTSIDE RECORDS SUMMARY | 2024-02-14 11:17 | XMS_ITS | Encounter Summary ---
[place] [address] Care Team Providers Care Supervisor Furnace Room Name Role Phone Urbano Denis DO Primary Care Provider Reason for Referral * Diagnostic Test (Routine) - Closed Specialty Diagnoses / Procedures Referred By Contac t Referred To Contact Cardiology Diagnoses Tachy-roman syndrome Procedures Echocardiogram Transthoracic Shaq Damon MD [facility] [place] [address] [facility] [place] [address] Referral ID Status Reason Start Date Expiration Date V isits Requested Visits Authorized [id number] Closed Specialty Service Requested 02/19/2022 04/19/2022 1 1 Reason for Visit * Diagnostic Test (Routine) - Closed Specialty Diagnoses / Procedures Referred By Contpaula t Referred To Contact Cardiology Diagnoses Tachy-roman syndrome Procedures Echocardiogram Transthoracic Shaq Damon MD [facility] [place] [address] [facility] [place] [address] Referral ID Status Reason Start Date Expiration Date V isits Requested Visits Authorized [id number] Closed Specialty Service Requested 02/19/2022 04/19/2022 1 1 Encounter Details Date Type Department Care Team (Late st Contact Info) Description 02/19/2022 12:34 PM EDT - 02/19/2022 11:59 PM EDT Hospital Encounter Non-Invasive Cardiology Lab [facility] [address] Shaq Damon MD [facility] [place] [address] Tachy-roman syndrome Discharge Disposition: Home Social History Tobacco Use [...] EVERY EVENING 450 tablet 1 02/13/2022 07/21/2022 metoprolol succinate XL (Toprol-XL) 25 mg Tablet Sustained Release 24 hrIndications:Atrial fibrillation with RVR Take 2 tablets by mouth daily. 90 tablet 2 02/01/2022 02/25/2022 atorvastatin (Lipitor) 40 mg TabletIndications:Sanderson ry artery disease Take 1 tablet by mouth every evening. 90 tablet 3 01/14/2022 02/11/2023 aspirin EC 81 mg Tablet, Delayed Release (E.C.) Take 81 mg by mouth Daily at Noon. 05/09/2022 calciTRIoL (Rocaltrol) 0.5 mcg Capsule TAKE ONE CAPSULE BY MOUTH EVERY DAY 90 capsule 3 10/28/2021 11/13/2022 tacrolimus (Prograf) 1 mg CapsuleIndications:Other complication of kidney transplant,Prophylactic immunotherapy TAKE TWO CAPSULES BY MOUTH EVERY MORNING AND ONE CAPSULE NIGHTLY 90 capsule 11 10/04/2021 04/28/2022 mycophenolate (Cellcept) 250 mg CapsuleIndications:Other complication of kidney transplant,Prophylactic immunotherapy Take 1 capsule by mouth 2 times daily. 60 capsule 11 10/04/2021 04/28/2022 hydrALAZINE (Apresoline) 100 mg Tablet Take 1 tablet by mouth 2 times daily. 180 tablet 3 03/19/2021 04/15/2022 documented as of this encounter Plan of Treatment Upcoming Encounters Date Type Department Care Team (Late st Contact Info) Description 04/15/2024 10:00 AM EDT Hospital Encounter Non-Invasive [place] [phone] Arrived documented as of this encounter Goals Goal Patient Goal Type Associated Problems Recent Progress Patient-Stated? Author DH Home Medication Compliance and Understanding Patient Facing Action Plan On track( 017 10:41 AM EDT) Selena Scott, [facility] Note: Patient Goal: Clear hepatitis C Timeframe to meet goal: within 12 weeks of therapy documented as of this encounter Procedures Procedure Name Priority Date/Time Associated Diagnosis Comments ECHO LMTD W/O CONTRAST W LMTD SPEC DOPP COLOR DOPP Routine 02/19/2022 1:51 PM EDT Tachy-roman syndrome documented in this encounter Results * ECHO LMTD W/O CONTRAST W LMTD SPEC DOPP COLOR DOPP (02/19/2022 1:51 PM EDT) Anatomical Region Laterality Modality Cardiac Other 02/19/2022 1:02 PM EDT Narrative 02/19/2022 4:39 PM EDT ? Echocardiogram Report Name: FUADRAMÓN ETHEL Patricia ? Study Date: 02/19/2022 01:02 PM ?BP: 152/81 mmHg ?Patient Location: 4A ? HR: 68 : 1950 ?Height: 180 cm ? Account: [id number] Age: 71 yrs ?Weight: 103 kg Gender: [...] is moderate mitral regurgitation. Procedure Limited - 38626. Doppler - 28373. Color Doppler - 49167. Satisfactory quality. There is a pacemaker rhythm. [...] - 02/19/2022 Echocardiogram Report Name: ETHEL AKINS Patricia Study Date: 02/19/2022 01:02 PM BP: 152/81mmHg Patient Location: HR: 68 : 1950 Height: 180 cm Account:[id number] Age: 71 yrs Weight: 103 kg Gender: [...] is moderate mitral regurgitation. Procedure Limited - 98487. Doppler - 97081. Color Doppler - 89694. Satisfactoryquality. There is a pacemaker rhythm. Left [...] dysfunction documented in this encounter Care Teams Supervisor Furnace Room Relationship Specialty Start Date End Date Urbano Denis DO [address] [place], [place] [address]Y [facility] [address] [place] [address] PCP - General 09/03/12 03/17/22 Hai STANLEY,Ruchi Nurse Clinic Transplant Surgery 07/30/15 documented as of this encounter
--- OUTSIDE RECORDS SUMMARY | 2024-02-14 11:17 | XMS_ITS | Encounter Summary ---
Author Organization Formerly [facility] [place] [address] Care Team Providers Care Puddler Pile Driving Name Role Phone Urbano Jimenez DO Primary Care Provider [phone] Reason for Visit * Auth/Cert Specialty Diagnoses / Procedures Referred By Contpaula t Referred To Contact Diagnoses Persistent atrial fibrillation [I48.19] Watchman Procedures PRO PERQ CLSR TCAT L ATR APNDGE W/ENDOCARDIAL IMPLNT CARDIAC CATHETERIZATION @PERQ TRANSCATH CLOSURE LEFT ATRIAL APPENDAGE W ENDOCARDIAL IMPLANT, INC RAD S&I (WRVU 14) TRANSESOPHAGEAL ECHO DURING CATH/EP PROCEDURE Madhu Diana MD [facility] [place] [address] [place] [address] [facility] Referral ID Status Reason Start Date Expiration Date Visits Re quested Visits Authorized [id number] 1 1 Encounter Details Date Type Department Care Team (Late st Contact Info) Description 05/08/2022 9:30 AM EDT - 05/08/2022 11:58 AM EDT Surgery [place] [address] Madhu Diana MD [facility] [place] [address] [place] [address] CARDIAC CATHETERIZATION Social History Tobacco Use Types Packs/Day Years [...] Sign Reading Time Taken Comments Blood Pressure 132/68 05/08/2022 9:18 AM EDT Pulse 66 05/08/2022 9:18 AM EDT Temperature 36.2 ??C (97.2 ??F) 05/08/2022 9:18 AM ED T Respiratory Rate - - Oxygen Saturation 94% 05/08/2022 9:18 AM EDT Inhaled Oxygen Concentration - - Weight 100.7 kg (222 lb) 05/08/2022 9:18 AM EDT Height 180.3 cm (5' 11) 05/08/2022 9:18 AM EDT Body Mass Index 30.78 05/08/2022 9:18 AM EDT documented in this encounter Discharge Summaries * Harjeet Aburto PA - 05/09/2022 8:34 AM EDTSummary: Post Procedure Discharge Summary Discharge Summary Patient Name: Ethel Akins Patient Age: 71 y.o. Language: Montenegrin Race: White Ethnicity: Not nor Admit date: [...] Diana MD - attending LIN Haddad PA-C [facility] Pager [phone] Discharge Diagnoses (Hospital Problems) and Secondary Diagnoses (Chronic Problems): Active Hospital Problems Diagnosis ??? Atrial fibrillation Resolved Hospital Problems No resolved problems to display. Active Non-Hospital Problems Diagnosis ??? Aortic stenosis, mild ??? Mitral regurgitation Moderate ??? Pacemaker 01/31/2022 Successful implantation of a dual chamber Medtronic pacemaker Medtronic [place] XT DR MRI Model ??? Tachy-sakina syndrome [...] Vitamin D deficiency ??? 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 terminal gauger current use of 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 drug ??? CAH [...] AF Hx of Cardioversion:?No Anti-Arrhythmics:?No Sleep Apnea:?No [id number] ( HTN 1, Age??1,?? DM 1, Stroke [...] 27mm implant ACCESS: Right femoral vein, 14 Romansh, ultrasound guided access, perclose for hemostasis ?? [...] 0 STOPPED Medications aspirin EC 81 mg Tbec Updated Allergies/ADRs: Allergies Allergen Reactions ??? Viper Immunizations Given this Hospitalization: None Discharge Medications: [...] appointments: During 8am-5pm Thursday through Thursday call [phone] and ask to speak to the cardiology clinic triage nurse. All other times call [phone] and ask to speak to the can reforming machine operator industrial controls technician. Return to work: One week Driving: No driving for 24 hours after catherization Diet: Regular diet, heart healthy Follow up Appointments: PCP within 2-3 weeks. Then, please follow up with Dr. Lebron petersen [address] scan/DAVEY. At this visit in 45 days we will discuss the next steps regarding taking/not taking blood thinners. Please do not hesitate to contact us with any questions or concerns. Harjeet Aburto Interventional Cardiology [facility] [place] [facility] Pager [phone] (M-F 7am-5pm call [phone] public address system operator) General Instructions Listed Below (repeat from above) [...] PCP 2-3 weeks post procedure and general women's swim coach in the 1-3 months postprocedure. 4. For the first 6 months of the device, try to avoid unnecessary procedures. For only dental procedures in first 6 months if they must be done: take a prescribed antibiotic before dental procedures (typically amoxicillin 2 g by mouth or clindamycin 600 mg by mouth one time one hour before procedure). Your PCP or our cardiac nurse ([phone]) can prepare a prescription is needed. If there are questions, please contact Dr. Diana at [phone]. If there are emergency questions related to the device, call the can reforming machine operator industrial controls technician at [phone]. Smoking cessation: If you are currently a [...] your PCP in 1-2 weeks, and your Stamp Pad Finisher in 4-6 weeks. Please contact each office to make or confirm your appointments! Harjeet Aburto Interventional Cardiology [facility] Pager: [phone] MCKINLEY Calzada Interventional Cardiology 05/09/22 8:34 AM [facility] Pager: [phone] documented in this encounter Discharge Instructions * [...] appointments: During 8am-5pm Thursday through Thursday call [phone] and ask to speak to the cardiology clinic triage nurse. All other times call [phone] and ask to speak to the can reforming machine operator industrial controls technician. Return to work: One week Driving: No driving for 24 hours after catherization Diet: low fat / low cholesterol Follow up Appointments: women's swim coach Dr Diana in 45 days for repeat [...] is not improving, please call us at [phone]. Please caution and limit physical activity or exercise for the next 3 days, perform only light duty, do not lift anything heavier than a gallon of milk. Please follow up with your cardiology in 45 days (6 weeks). Follow up with your PCP in 2-4 weeks after procedure. If there are questions, please contact Yessica Johnson PA-C nurse, Karthik Padilla, at [phone] #3 and he will reach out to her as needed. If there are emergency questions at night or over the weekend, call the can reforming machine operator industrial controls technician at [phone]. * Attachments The following attachments cannot be sent through Care Everywhere. * Left Atrial Appendage Closure: Percutaneous: Post-op (Montenegrin) documented in this encounter Medications at Time [...] in the dark (lengthy drive up to [place], [place]). Due to patient and family preference, patient [...] of a dual chamber Medtronic pacemaker Medtronic [place] XT DR MRI Model ??? Tachy-sakina syndrome [...] Vitamin D deficiency ??? 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 terminal gauger current use of 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 drug ??? CAH [...] of Atrial Fibrillation with inability to tolerate long-term OAC due to prior hemorrhagic conversion of [...] MCKINLEY Boyle Interventional Cardiology 05/08/22 1:26 PM [facility] Pager: [phone] * Yessica Johnson PA - 05/08/2022 11:05 AM EDT Patient Name: Ethel Akins Patient Age: 71 y.o. Birthdate: 1950 Admit date: 05/08/2022 Attending Physician: Madhu Diana MD [facility] Interventional Cardiology Structural [...] in the chart MCKINLEY Boyle Interventional Cardiology 05/08/22 11:05 AM [facility] Pager: [phone] documented in this encounter Miscellaneous Notes * Plan of Care - Rhoda Velasquez RN - 05/09/2022 11:58 AM EDT Patient AVS reviewed. Questions answered. Patient discharged to [facility]. Problem: Adult Inpatient Plan of [...] today. PLAN MOVING FORWARD: pain management monitor satellite project site monitor I/Os discharge planning as appropriate INDIVIDUALIZED [...] Operative Note Patient Name: Ethel Akins : [id number] MR#: [id number] Case Date: 05/08/2022 Surgeon: Surgeon(s) and Role: Panel 1: * Madhu Diana MD - Primary * Yessica Johnson PA - Physician Belting Cutter Panel 2: * Damien Ellis MD - [...] AM EDT Hospital Encounter [place] [address] Arrived documented as of this [...] 3:30 PM EDT) Neutrophil % 73.2 % [facility] Neutrophil Absolute 5.92 1.70 - 6.10 x10(3)/[facility] LAB[facility] Lymph % 16.1 % [facility] Lymphocytes Abs 1.3 0.9 - 3.2 x10(3)/[facility]OR[facility] Monocyte % 6.6 % [facility] Monocyte Abs 0.5 0.3 - 0.9 x10(3)/[facility] Eos % 3.1 % [facility] Eosinophils Abs 0.2 0.0 - 0.4 x10(3)/[facility]OR[facility] Basophil % 0.6 % [facility] Baso Absolute 0.0 0.0 - 0.1 x10(3)/[facility] Immature Gran % 0.40 % [facility] Comment: Immature granulocytes(IG's)percentage and absolute count will include metamyelocytes, myelocytes, and promyelocytes. Blood smears from CBCs yielding IG's will be scanned manually for concordance. If this scan disagrees with the automated IG or if promyelocytes are noted, a manual differential will be performed. Immature Gran Absolute 0.03 0.00 - 0.04 x10(3)/[facility] LABORATORY Blood 05/08/2022 3:30 PM EDT 05/08/2022 3:41 PM EDT Narrative Resulting Agency Comment Spec In Lab Madhu Diana MD HEMATOLOGY ORDERABLE S [facility] [place] [address] * (ABNORMAL) Hemogram (05/08/2022 3:30 PM EDT) White Blood Cell 8.1 4.0 - 9.5 x10(3)/mc L [facility] Red Blood Cell 4.31(L) 4.58 - 5.54 x10(6)/mc L [facility] Hemoglobin 13.2(L) 13.7 - 16.5 g/dL [facility] Hematocrit 38.4(L) 40.5 - 48.5 % [facility] Mean Cell Volume 89.1 82.9 - 93.1 [facility] Mean Cell Hemoglobin 30.6 27.5 - 32.1 pg [facility] Mean Cell Hemoglobin Concentration 34.4 32.0 - 35.7 g/dL [facility] Platelet 241 145 - 357 x10(3)/mc L [facility] RDW Standard Deviation 42.4 36.0 - 45.0 [facility] RDW coefficient of variation 13.0 11.4 - 13.8 % [facility] Mean Platelet Volume 9.4 7.6 - 12.9 [facility] LAB[facility]ATORY NRBC% auto 0.0 % [facility] NRBC Absolute 0.000 0.000 - 0.000 x10(3)/mc L [facility] Blood 05/08/2022 3:30 PM EDT 05/08/2022 3:41 PM EDT Narrative Resulting Agency Comment Spec In Lab Madhu Diana MD HEMATOLOGY ORDERABLE S Performing Organization Address City/State/[facility] Co de Phone Number [facility] [place] [address] * ECHO LMTD W/O CONTRAST W LMTD SPEC DOPP COLOR DOPP (05/08/2022 3:02 PM EDT) Anatomical Region Laterality Modality Cardiac Other 05/08/2022 2:28 PM EDT Narrative 05/08/2022 3:56 PM EDT ? Echocardiogram Report Name: ETHEL AKINS ? Study Date: 05/08/2022 02:28 PM ?BP: 107/63 mmHg ?Patient Location: [address] : 1950 ?Height: 180 cm ? Account: [id number] Age: 71 yrs ?Weight: 101 kg Gender: [...] report for additional findings. Procedure Limited - 57969. limited spectral 10498. Color Doppler - 32057. Satisfactory quality. Irregular rhythm. Left Ventricle Left ventricular systolic function is mildly reduced. Left ventricular ejection fraction is estimated visually at 45%. Left Atrium Qzsq-cc-xwbzj flow is present. There is a single [...] 05/08/2022 02:28 PM BP: 107/63mmHg Patient Location: [address] : 1950 Height: 180 cm Account:[id number] Age: 71 yrs Weight: 101 kg Gender: [...] report for additional findings. Procedure Limited - 06332. limited spectral 43320. Color Doppler - 80990.Satisfactory quality. Irregular rhythm. Left Ventricle Left ventricular systolic function is mildly reduced. Left ventricularejection fraction is estimated visually at 45%. Left Atrium Tots-xx-wqmwf flow is present. There is a single [...] (Bezet) 464 ms MUSE SYSTEM Calculated R Barre -57 degrees MUSE SYSTEM Calculated T Barre -60 degrees MUSE SYSTEM INTERPRETATION Atrial fibrillation [...] Modality Other Narrative 05/08/2022 3:37 PM EDT ?[facility] ? Cardiac Catheterization/Intervention Report ? Patient Name: Tubiello, Ethel P. ? Procedure Date: 05/08/2022 ? A #: [id number] ? Primary Physician: Young, Madhu N ? Case #: [id number] ? File Name: [id number] ? Catheterization Order Number: [id number] ? [facility] ? Final Report [place], [place] ? Patient Name: ? Ethel P. Tubiello ? ID#: ?[id number] ? : ?1950 ? Procedure Date: ? May 08, 2022 ? Case #: ? [id number] ? Room: ? 6 ? Case Physicians: [...] was designated as ASA Class ?III. The CSHA clinical frailty scale is 6: Moderately Frail. [...] procedure was Elective. The indication for ?the clinical laboratory aide visit is other indication. Chest pain symptom [...] for atrial fibrillation. ?The patient had a [id number] score of 6, a HAS-BLED score of [...] left atrial appendage ?and exchanged for a [employer] Double Curve delivery sheath. A ?Watchman FLX Closure Device 27 mm (s/l/n [id number]) was prepared and ?deployed using standard technique. [...] to nor was it given in the ?clinical laboratory aide. ?Recommended anti-platelet/anti-thrombotic regimen: ?Continue apixaban 2.5 mg twice daily for 45 days then stop. ?These recommendations are made at the time of the intervention. Patient ?and provider preferences or a changing clinical situation may require ?modification of this regimen. Consult [facility] Interventional Cardiology for ?questions. ? Conclusions: ?* [...] the transesophageal echo during cath. ? Madhu Diana, M.D. ? Electronically Signed by: Madhu Diana, M.D. ? Report Finalized: 05/08/2022 ??15:33 ? [...] 1950 ? Height: 180 cm ? Account: [id number] Age: 71 yrs ? Weight: 101 kg Gender: Male ?BSA: 2.2 m2 Ordering Physician: GENA CHERRY Referring Physician: MADHU DIANA Performed By: Damien Ellis MD Reason For Study: Atrial Fibrillation Exam Location: [facility]. Interpretation Summary DAVEY performed to guide BATOOL closure in catheterization laboratory. Baseline: No BATOOL thrombus. Max os diameter of ~22 mm. Small pericardial effusion. Post: 27 mm Watchman FLX device well-seated within BATOOL. No mary-device leak. No change in pericardial effusion. Ygky-fv-kiucz flow across atrial septostomy. See report for [...] - 05/08/2022 Transesophageal Echocardiogram Report Name: ETHEL AKINS Study Date: :58 AM Patient Location: [facility] A : 1950 Height: 180 cm Account: [id number] Age: 71 yrs Weight: 101 kg Gender: Male BSA: 2.2 m2 Ordering Physician: GENA CHERRY Referring Physician: MADHU DIANA Performed By: Damien Ellis MD Reason For Study: Atrial Fibrillation Exam Location: [facility]. Interpretation Summary DAVEY performed to guide BATOOL closure in catheterization laboratory. Baseline: No BATOOL thrombus. Max os diameter of ~22 mm. Small pericardialeffusion. Post: 27 mm Watchman FLX device well-seated within BATOOL. No mary-deviceleak. No change in pericardial effusion. Jczr-oy-bhmgg flow across atrialseptostomy. See report for additional [...] * POCT Glucose (05/08/2022 12:32 PM EDT) [facility] Glucose, POC 142 65 - 199 mg/dL [facility] Comment: Supplemental ranges: <140 mg/dL before meals <180 mg/dL all other times of the day Blood 05/08/2022 12:3 2 PM EDT 05/08/2022 12:32 PM EDT Madhu Diana MD POINT OF CARE TEST O RDERABLES [facility] [place] [address] * POCT Glucose (05/08/2022 9:39 AM EDT) Glucose, POC 134 65 - 199 mg/dL [facility] Comment: Supplemental ranges: <140 mg/dL before meals <180 mg/dL all other times of the day Blood 05/08/2022 9:39 AM EDT 05/08/2022 9:39 AM EDT Madhu Diana MD POINT OF CARE TEST O TED [facility] [place] [address] * Type and Screen Validity (05/08/2022 8:54 AM EDT) [facility] T&S only valid at [facility] LABORATORY Comment:This Type and Screen result is only valid at the [facility] Blood 05/08/2022 8:54 AM EDT 05/08/2022 8:55 AM EDT Narrative Resulting Agency Comment Spec In Lab Harjeet SEN BLOOD BANK LAB ORDER IGNACIO Performing Organization Address City/[facility]/ZIP Co de Phone Number [facility] [place] [address] * ABORH Recheck Status (05/08/2022 8:54 AM EDT) [facility] ABORH Type Recheck Completed [facility] Blood 05/08/2022 8:54 AM EDT 05/08/2022 8:55 AM EDT Narrative Resulting Agency Comment Spec In Lab Harjeet SEN BLOOD BANK LAB ORDER IGNACIO Performing Organization Address City/[facility]/ZIP Co de Phone Number [facility] [place] [address] * Antibody screen (05/08/2022 8:54 AM EDT) [facility] Ab Screen Interp Negative [facility] Expires at 2359 on: 05/11/2022 [facility] Blood 05/08/2022 8:54 AM EDT 05/08/2022 8:55 AM EDT Narrative Resulting Agency Comment Spec In Lab Harjeet SEN BLOOD BANK LAB ORDER IGNACIO [facility] [place] [address] * ABO/Rh Typing (05/08/2022 8:54 AM EDT) ABORH Type AB Pos [facility] Blood 05/08/2022 8:54 AM EDT 05/08/2022 8:55 AM EDT Narrative Resulting Agency Comment Spec In Lab Harjeet SEN BLOOD BANK LAB ORDER IGNACIO Performing Organization Address City/[facility]/ZIP Co de Phone Number [facility] [place] [address] * Differential, Automated (05/08/2022 8:54 AM EDT) Neutrophil % 69.6 % [facility] Neutrophil Absolute 5.76 1.70 - 6.10 x10(3)/[facility] LABORAT[facility] Lymph % 18.1 % [facility] Lymphocytes Abs 1.5 0.9 - 3.2 x10(3)/[facility] LABORATORY Monocyte % 7.1 % [facility] Monocyte Abs 0.6 0.3 - 0.9 x10(3)/[facility]OR[facility] Eos % 3.7 % [facility] Eosinophils Abs 0.3 0.0 - 0.4 x10(3)/[facility]ORAT[facility] Basophil % 1.1 % [facility] Baso Absolute 0.1 0.0 - 0.1 x10(3)/[facility]OR[facility] Immature Gran % 0.40 % [facility] Comment: Immature granulocytes(IG's)percentage and absolute count will include metamyelocytes, myelocytes, and promyelocytes. Blood smears from CBCs yielding IG's will be scanned manually for concordance. If this scan disagrees with the automated IG or if promyelocytes are noted, a manual differential will be performed. Immature Gran Absolute 0.03 0.00 - 0.04 x10(3)/[facility] LABOR[facility] Blood 05/08/2022 8:54 AM EDT 05/08/2022 9:05 AM EDT Narrative Resulting Agency Comment Spec In Lab Madhu Diana MD HEMATOLOGY ORDERABLE S [facility] [place] [address] * Hemogram (05/08/2022 8:54 AM EDT) White Blood Cell 8.3 4.0 - 9.5 x10(3)/[facility] LABOR[facility] Red Blood Cell 4.83 4.58 - 5.54 x10(6)/[facility] Hemoglobin 14.5 13.7 - 16.5 g/dL [facility] Hematocrit 42.1 40.5 - 48.5 % [facility] Mean Cell Volume 87.2 82.9 - 93.1 fL [facility] Mean Cell Hemoglobin 30.0 27.5 - 32.1 pg [facility] Mean Cell Hemoglobin Concentration 34.4 32.0 - 35.7 g/dL [facility] Platelet 273 145 - 357 x10(3)/[facility] LABORATORY RDW Standard Deviation 40.7 36.0 - 45.0 [facility] LABORATORY RDW coefficient of variation 12.9 11.4 - 13.8 % [facility] Mean Platelet Volume 9.1 7.6 - 12.9 fL [facility] NRBC% auto 0.0 % [facility] NRBC Absolute 0.000 0.000 - 0.000 x10(3)/[facility]OR[facility] Blood 05/08/2022 8:54 AM EDT 05/08/2022 9:05 AM EDT Narrative Resulting Agency Comment Spec In Lab Madhu Diana MD HEMATOLOGY ORDERABLE S [facility] [place] [address] * (ABNORMAL) BMP w/fasting Glucose (05/08/2022 8:54 AM EDT) Glucose Fasting 168(H) 65 - 99 mg/dL [facility] Comment: ?Fasting* Glucose Interpretive Criteria [...] of Diabetes Mellitus, Position Statement from the [place] [employer]. ??Diabetes Care, Volume 33, Supplement 1, Jul 2009 Blood Urea Nitrogen 18 10 - 20 mg/dL [facility] Creatinine 1.44 0.80 - 1.50 mg/dL [facility] Sodium 142 135 - 145 mmol/L [facility] Potassium 3.6 3.5 - 5.0 mmol/L [facility] Comment: Please note: ??Patients with WBC >100,000 may have falsely elevated Potassium levels. ??For accurate Potassium quantification in these patients send serum separator tube (gold top) for subsequent determinations. ??Contact the Clinical Chemistry Laboratory if there are any questions. Chloride 103 98 - 107 mmol/L [facility] Carbon Dioxide 30 22 - 31 mmol/L [facility] Anion Gap 9 5 - 15 mmol/L [facility] Calcium 9.8 8.5 - 10.5 mg/dL [facility] Est Glomerular Filtration Rate 51(L) >=60 mL/min/1. 73 m?? [facility] [...] In Lab Madhu Diana MD CHEMISTRY ORDERABLES Performing Organization Address City/State/[facility] Co de Phone Number [facility] [place] [address] documented in this encounter Visit Diagnoses Diagnosis [...] 05/09/2022 8:28 AM EDT 2.5 mg aspirin chewable tablet ONCE PRN, Starting on Laura 05/08/22 at 1147, Until Laura 05/08/22 at 1848, Cath (Intra-Procedure), Routine Given 05/08/2022 11:47 AM EDT 81 mg aspirin EC tablet 81 mg 81 [...] Given 05/09/2022 8:27 AM EDT 100 mg levothyroxine (Synthroid) tablet 137 mcg 137 mcg, Oral, DAILY, First dose on Thu05/09/22 at 0900, Until Discontinued, Routine Given 05/09/2022 8:28 AM EDT 137 mcg metoprolol succinate XL (Toprol-XL) tablet 50 mg [...] 5 MIN PRN, 3 doses, Starting on Thu05/08/22 at 1947, Until Thu05/09/22 at 1405, Opioid [...] and if ineffective use promethazine., PACU Recovery tacrolimus (Prograf) capsule 1 mg 1 mg, Oral, NIGHTLY, First dose on Laura 05/08/22 at 2100, Until Discontinued, DO NOT SPLIT, [...] Laura 05/08/22 at 2100, Until Discontinued, Routine 2037 (Given - Provider: Kiki Flores RN) apixaban (Eliquis) tablet 2.5 mg 2.5 mg, Oral, 2 TIMES DAILY, First dose on Thu05/09/22 at 0900, Until Discontinued, Anticoagulant, Routine, Restricted anticoagulant, choose the most appropriate response: Approved indication of non-valvular atrial fibrillation 0828 (Given - Provid er: Rhoda Velasquez RN) aspirin EC tablet 81 mg 81 mg, Oral, DAILY, First dose on Thu05/09/22 at 0900, Until Discontinued, Recovery (Recovery-Hospital Unit), Routine 827 (Given - Provid er: Rhoda Velasquez RN) atorvastatin (Lipitor) tablet 40 mg 40 mg, Oral, EVERY EVENING, First dose on Thu05/08/22 at 204, Until Discontinued, Routine 2037 (Given - Provider: Kiki Flores RN) calciTRIoL (Rocaltrol) capsule 0.5 mcg 0.5 mcg, Oral, DAILY, First dose on Thu05/08/22 at 2044, Until Discontinued, Routine 2037 (Given - Provider: [...] 2037 (Given - Provider: Kiki Flores RN) 08 (Given - Provider: Rhoda Velasquez RN) tacrolimus (Prograf) capsule 1 mg 1 mg, Oral, NIGHTLY, First dose on Larua 05/08/22 at 2100, Until Discontinued, DO NOT SPLIT, CRUSH OR OPEN, Routine 2037 (Given - Provider: Kiki Flores RN) tacrolimus (Prograf) capsule 2 mg 2 mg, Oral, DAILY, First dose on Thu05/09/22 at 0900, Until Discontinued, DO NOT SPLIT, CRUSH OR OPEN, Routine 826 (Given - Provid er: Rhoda Velasquez RN) tamsulosin (Flomax) capsule 0.4 mg 0.4 mg, [...] (Intra-Procedure), Routine 1147 (Given - Provider: Steffen Mora RN) atropine (0.1 mg/mL) injection 1 mg 1 [...] Routine documented in this encounter Care Teams Puddler Pile Driving Relationship Specialty Start Date End Date Urbano Jimenez DO [address] [place] [address] PCP - General Family Medicine 03/18/22 Ruchi Valles RN Nurse Clinic Transplant Surgery 07/30/15 documented as of this encounter
--- OUTSIDE RECORDS SUMMARY | 2024-02-14 11:17 | XMS_ITS | Encounter Summary ---
Author Organization [facility] [place] [address] Care Team Providers Care Oil Recovery Unit Operator Name Role Phone Adeel Urbano KIRBY Primary Care Provider [phone] Encounter Details Date Type Department Care Team (Late st Contact Info) Description 02/16/2022 External Results [place] [address] Social History Tobacco Use Types Packs/Day Years [...] AM EDT Hospital Encounter [place] [address] Arrived documented as of this encounter Goals Goal Patient Goal Type Associated Problems Recent Progress Patient-Stated? Author Home Medication Compliance and Understanding Patient Facing Action Plan On track( 017 10:41 AM EDT) No Selena Cisneros, [facility] Note: Patient Goal: Clear hepatitis C Timeframe to meet goal: within 12 weeks of therapy documented as of this encounter Procedures Procedure Name Priority Date/Time Associated Diagnosis Comments ECG SCAN Routine 02/16/2022 documented in this encounter Results * Scan Doc: ECG (02/16/2022) Historical Provider MD PAIZ MGR SCAN EX T ORDR/RSLT documented in this encounter Visit Diagnoses Not on filedocumented in this encounter Care Teams Oil Recovery Unit Operator Relationship Specialty Start Date End Date Urbano Denis DO [facility] [address] [place] [address] PCP - General 09/03/12 03/17/22 Ruchi Valles RN Nurse Clinic Transplant Surgery 07/30/15 documented as of this encounter
--- OUTSIDE RECORDS SUMMARY | 2024-02-14 11:17 | XMS_ITS | Encounter Summary ---
Author Organization [facility] Address [facility] [place] [address] Care Team Providers Care Superintendent Car Construction Name Role Phone Adeel Urbano KIRBY Primary Care Provider [phone] Encounter Details Date Type Department Care Team (Late st Contact Info) Description 02/25/2022 9:30 AM EDT Office Visit Cardiology at [address] [address] Byron Brown MD [facility] [place] [address] Atrial fibrillation, unspecified type; Atrial fibrillation with RVR - had flutter [...] Sign Reading Time Taken Comments Blood Pressure 137/67 02/25/2022 9:07 AM EDT Pulse 67 02/25/2022 9:07 AM EDT Temperature - - Respiratory Rate - - Oxygen Saturation 97% 02/25/2022 9:07 AM EDT Inhaled Oxygen Concentration - - Weight 102.9 kg (226 lb 12.8 oz) 02/25/2022 9:07 AM EDT Height 180.3 cm (5' 11) 02/25/2022 9:07 AM EDT Body Mass Index 31.63 02/25/2022 9:07 AM EDT documented in this encounter Progress Notes * Byron Brown MD - 02/25/2022 9:30 AM EDT [facility]ly [facility] [place] [address] CARDIOLOGY/ VASCULAR OUTPATIENT NOTE Cody Bolden Urbano Denis, OFFICE VISIT : From the recent discharge summary: (01/31/2022) This is a 71 year old gentleman, followed by cardiology at [facility] (Dr Michael Brown). 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 ??2019 he underwent PCI, also history of basal ganglia bleed. ??Now with atrial fibrillation. ?? He underwent pacemaker implantation (see details below). Note that we did not anticoagulate him as he has history of basal ganglia bleed. His TXSDN0OTAL score is high and I have reached out to his multi punch operator (Dr. Michael Brown) to have him follow up (attempt at gnosticist of sinus, benefits:risks foranticoagulation, consideration of Watchman Device). From the recent device interrogation (02/12/2022) ?? Heart rate histograms: reasonable distribution ?? Pacing percentages: AP 6.3%; SENIOR PRODUCT MARKETING MANAGER 61.5 % ?? Mode switch episodes: 214 for a 97.2% burden- with average ventricular rates 60- 90's bpm, some atrial undersensing observed suggesting burden is greater. From the recent phone note (02/18/2022) ?? Mr. Bolden is a 71 y/o M w/ PMH HTN, T2DM, ASCVD s/p PCI to OM, iCM with recovered EF, atrial fibrillation (not on AC due to intracranial bleed), tachy- sakina syndrome s/p PPM, ESRD s/p renal transplant, prior CVA, diverticulitis who presents with general malaise and fatigue. Denies chest pain andshortness of breath. ?? Pacer interrogation AT/AF February 16 and Ventricular rates over 100 BPM ?? VS: 153/70, HR 71, RR 26, SpO2 95% on RA Appears euvolemic on exam ?? Pertinent Diagnostic Findings: - ECG: atrial flutter with V-paced complexes - BNP 2980 (prior on 01/30/2022 4113) - CXR appearing mild pulmonary vascular congestion - Troponin negative - Cr 1.47 - WBC normal, H/H normal ?? Assessment and Plan: Patient is presenting with [...] since patient is unable to tolerate anticoagulation. SUBJECTIVE: Mr Bolden returns to the clinic for follow-up. He is accompanied by his . He had a recent pacemaker placed at [facility] (01/31/2022) for a tachy-sakina type syndrome. He was not feeling well about 2 weeks after the pacemaker - although mostly nonspecific symptoms such as fatigue. He was seen at his local ER at [facility] (02/16/2022) and [facility] (02/18/2022). However, both times he was released after initial evaluation. It is noted that his metoprolol wasincreased and I believe this may have helped with further rate control. He had a follow-up echo as an outpatient at [facility] on 02/19/2022. Results are below. Trivial pericardial effusion. LVEF 45% (similar to prior) with moderate MR. Overall, he thinks that he is feeling a little better. ECG in clinic today: Ventricular paced with underlying atrial flutter Meds: Outpatient Medications Marked as Taking for the 02/25/22 encounter (Office Visit) with Byron Brown MD Medication Sig Dispense Refill ??? Magnesium Gluconate 27 mg magnesium (500 mg) Tablet TAKE 2 TABLETS BY MOUTH EVERY MORNING , 1 TABLET AT NOON, AND 2 TABLETS EVERY EVENING 450 tablet 1 ??? metoprolol succinate XL (Toprol-XL) 25 mg Tablet Sustained Release 24 hr Take 2 tablets by mouth daily. (Patient taking differently: Take 50 mg by mouth 2 times daily.) 90 tablet 2 ??? amLODIPine (Norvasc) 5 [...] the past 24 hrs: Pulse BP SpO2 02/25/22 0907 67 137/67 97 % General: Body mass index is 31.63 kg/m??. HEENT: PERRLA Neck: supple, JVP normal Lungs: clear to ascultation Cardiac: RRR, no m/r/g Abdomen: nontender, nondistended Extremities: normal ROM, No edema. Neuro: alert and oriented x 3, normal muscle strength Most recent labs or other cardiac testing: Latest Reference Range & Units 02/01/22 03:29 Sodium 135 - 145 mmol/L 143 Potassium 3.5 - 5.0 mmol/L 3.7 Chloride 98 - 107 mmol/L 108 (H) CO2 22 - 31 mmol/L 23 Anion Gap 5 - 15 mmol/L 12 BUN 10 - 20 mg/dL 22 (H) Creatinine 0.80 - 1.50 mg/dL 1.38 Estimated GFR >=60 mL/min/1.73 m?? 54 (L) Calcium 8.5 - 10.5 mg/dL 8.4 (L) Magnesium 0.69 - 1.07 mmol/L 0.72 Phosphorus 2.5 - 4.5 mg/dL 2.9 Glucose Lvl 65 - 199 mg/dL 104 Echo 02/19/2022: Interpretation Summary Left ventricle is mildly [...] aortic stenosis. There is moderate mitral regurgitation. ASSESSMENT / PLAN: Mr. Bolden is a [...] 50 mg po bid may have helped. #atrial flutter -recent device interrogation and ECG today with atrial flutter; however rates are well controlled with ventricular pacing at 65 -he is not on anticoagulation due to his history of spontaneous basal ganglia bleed with eliquis. We have referred him for a Watchman device #cardiomyopathy -he had a history of tachymyopathy that recovered in the past but it appears that he had a recurrence of this. His LVEF on 01/31/2022 was 45%, but the echo 12/2020 was normal. -he is on Bblocker -no ANNAMARIE/ARB at the moment, history of kidney transplant. 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 Follow-up plan: he has visits with structural (Watchman) and EP next month. I will plan to see him back in 3 months or prn Byron Brown MD, [facility] Cardiovascular Medicine [facility] [address] Clinic [phone] Clinic Team Nurse: [phone] The total time associated with this visit was 40 minutes. documented in this encounter Plan of Treatment Upcoming Encounters Date Type Department Care Team (Late st Contact Info) Description 04/15/2024 10:00 AM EDT Hospital Encounter Non-[place] [address] Arrived documented as of this encounter Goals Goal Patient Goal Type Associated Problems Recent Progress Patient-Stated? Author DH Home Medication Compliance and Understanding Patient Facing Action Plan On track( 017 10:41 AM EDT) No Selena Cisneros, [facility] Note: Patient Goal: Clear hepatitis C Timeframe to meet goal: within 12 weeks of therapy documented as of this encounter Procedures Procedure Name Priority Date/Time Associated Diagnosis Comments EKG 12-LEAD Routine 02/25/2022 9:48 AM EDT Atrial fibrillation, unspecified type documented in this encounter Results * EKG 12 Lead (02/25/2022 9:48 AM EDT) Ventricular rate 65 BPM MUSE SYSTEM Atrial Rate 59 BPM MUSE SYSTEM QRS Duration 164 ms MUSE SYSTEM Q-T Interval 482 ms MUSE SYSTEM QTC Calculated (Bezet) 501 ms MUSE SYSTEM Calculated R [place] -72 degrees MUSE SYSTEM Calculated T [place] 104 degrees MUSE SYSTEM INTERPRETATION Atrial flutter with intrinsic complexes and ??ventricular- paced complexes Left anterior fascicular block Poor R wave progression Abnormal ECG When compared with ECG of 30-JAN-2022 19:53, ventricular-pa brenda complexes are now present Confirmed by MD Kelly Danette ([id number]) on 02/25/2022 3:30:31 PM MUSE SYSTEM 02/25/2022 9:48 AM EDT 02/25/2022 3:30 PM EDT Byron Brown MD ECG ORDERABLES MUSE SYSTEM documented in this encounter Visit Diagnoses Diagnosis Atrial fibrillation, unspecified type Atrial fibrillation with RVR - had flutter initially, then fib Atrial fibrillation documented in this encounter Care Teams Superintendent Car Construction Relationship Specialty Start Date End Date Urbano Denis DO [address] [place] [address] PCP - General 09/03/12 03/17/22 Ruchi Valles RN Nurse Clinic Transplant Surgery 07/30/15 documented as of this encounter
--- OUTSIDE RECORDS SUMMARY | 2024-02-14 11:17 | XMS_ITS | Encounter Summary ---
Author Organization [facility]ly [facility] [place] [address] Care Team Providers Care System Support Technician Name Role Phone AdeelUrbano boland Primary Care Provider Encounter Details Date Type Department Care Team (Late st Contact Info) Description 02/10/2022 Notes Only Cardiology at [address] [address] Yossi Eric, RN Social History Tobacco Use Types Packs/Day [...] as of this encounter Progress Notes * Yossi Eric, RN - 02/10/2022 1:36 PM EDT Mr. Bolden is referred by Byron Brown MD for consideration of left atrial appendage closure options; please refer to recent clinic notes for detailed history and assessment. In brief, the patient was on eliquis for more than a year when he was diagnosed with a spontaneous basal ganglia bleed in February of 2021. He is interested in pursuing non pharmacological options for stroke prevention todecrease his bleeding risks. His history includes the following: PAF; Tachy/Roman syndrome s/p pacer; CAD; HTN; DM Type 2; ESRD s/p kidney transplant; Hepatitis C; CVA; HF and current cigar smoker. [id number] VASc: 7 ( HF, HTN, DM, CVA, Vascular Disease, Age) HAS-BLED: 6 (HTN, RF, CVA, Bleeding, Age) Anticoagulation/antiplatelet: None currently Plan: Schedule clinic with MD. documented in this encounter Plan of Treatment Upcoming Encounters Date Type Department Care Team (Late st Contact Info) Description 04/15/2024 10:00 AM EDT Hospital Encounter [place] [address] Arrived documented as of this [...] on filedocumented in this encounter Care Teams System Support Technician Relationship Specialty Start Date End Date Urbano Denis DO [address] [facility] [address] [place] [address] PCP - General 09/03/12 03/17/22 Ruchi Valles RN Nurse Clinic Transplant Surgery 07/30/15 documented as of this encounter
--- OUTSIDE RECORDS SUMMARY | 2024-02-14 11:17 | XMS_ITS | Encounter Summary ---
Author Organization [facility] [place] [address] Care Team Providers Care Health Type Technician Name Role Phone Adeel, Urbano KIRBY Primary Care Provider [phone] Reason for Visit * Reason Comments Medication Refill Encounter Details Date Type Department Care Team (Late st Contact Info) Description 02/13/2022 Refill [place] [address] Tal Eagle MD [facility] [place] [address] Social History Tobacco Use Types Packs/Day Years [...] AM EDT Hospital Encounter Non-[place] [phone] Arrived documented as of this encounter Goals Goal Patient Goal Type Associated Problems Recent Progress Patient-Stated? Author [facility] Medication Compliance and Understanding Patient Facing Action Plan On track( 017 10:41 AM EDT) Selena Scott, [facility] Note: Patient Goal: Clear hepatitis C Timeframe to meet goal: within 12 weeks of therapy documented as of this encounter Visit Diagnoses Not on filedocumented in this encounter Care Teams Health Type Technician Relationship Specialty Start Date End Date Urbano Denis DO [address] [place] [address] PCP - General 09/03/12 03/17/22 Ruchi Valles RN Nurse Clinic Transplant Surgery 07/30/15 documented as of this encounter
--- OUTSIDE RECORDS SUMMARY | 2024-02-14 11:17 | XMS_ITS | Encounter Summary ---
Author Organization [facility] [place] [address] Care Team Providers Care Bagging Machine Operator Name Role Phone Urbano Jimenez Ray KIRBY Primary Care Provider [phone] Encounter Details Date Type Department Care Team (Late st Contact Info) Description 04/17/2022 Notes Only Cardiology at [address] [address] Nazia Coleman RN Social History Tobacco Use [...] Progress Notes * Nazia Coleman RN - 04/17/2022 9:16 AM EDTSummary: Structural Heart Note Spoke to Yash and his . They confirm date for left atrial appendage closure (05/08/2022). We reviewed pre/post procedure instructions; they exhibit understanding. Plan: BATOOL Sanchez May 3 documented in this encounter Plan of Treatment Upcoming Encounters Date Type Department Care Team (Late st Contact Info) Description 04/15/2024 10:00 AM EDT Hospital Encounter Non-[place] [address] Arrived documented as of this encounter Goals Goal Patient Goal Type Associated Problems Recent Progress Patient-Stated? Author DH Home Medication Compliance and Understanding Patient Facing Action Plan On track( 017 10:41 AM EDT) Selena Scott, [facility] Note: Patient Goal: Clear hepatitis C Timeframe to meet goal: within 12 weeks of therapy documented as of this encounter Visit Diagnoses Not on filedocumented in this encounter Care Teams Bagging Machine Operator Relationship Specialty Start Date End Date Urbano Jimenez DO [address] [place] [address] PCP - General Family Medicine 03/18/22 Ruchi Valles RN Nurse Clinic Transplant Surgery 07/30/15 documented as of this encounter
--- OUTSIDE RECORDS SUMMARY | 2024-02-14 11:18 | XMS_ITS | Encounter Summary ---
Author Organization [facility] [place] [address] Care Team Providers Care Sweet Potato Disintegrator Name Role Phone DaeelUrbano toscano Primary Care Provider [phone] Reason for Visit * Reason Onset Date Comments Medication Refill 08/16/2021 Encounter Details Date Type Department Care Team (Late st Contact Info) Description 08/16/2021 Refill [place] [phone] Tal Eagle MD [facility] [place] [address] H/O kidney transplant; Vitamin D deficiency; penitentiary current use of 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 drug Social History [...] AM EDT Hospital Encounter Non-[place]vasive [place] [address] Arrived Scheduled Orders Name Type Priority Associated Diagnoses Orde r Schedule Transplant: Yearly lab request - External Results Lab Routine H/O kidney transplant Vitamin D deficiency technician terminal and repeater current use of 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 drug Expected: 08/16/2021, Expires: 08/16/2022 documented as of this encounter Goals Goal [...] Vitamin D deficiency Unspecified vitamin D deficiency penitentiary current use of 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 drug documented in this encounter Care Teams Sweet Potato Disintegrator Relationship Specialty Start Date End Date Urbano Denis DO [address] [place] [address] PCP - General 09/03/12 03/17/22 Ruchi Valles RN Nurse Clinic Transplant Surgery 07/30/15 documented as of this encounter
--- OUTSIDE RECORDS SUMMARY | 2024-02-14 11:18 | XMS_ITS | Encounter Summary ---
Author Organization [facility] [place] [address] Care Team Providers Care Group Marketing Vp Name Role Phone AdeelUrbano boland Primary Care Provider [phone] Reason for Visit * Reason Comments Medication Refill Metoprolol Encounter Details Date Type Department Care Team (Late st Contact Info) Description 08/22/2021 Refill Cardiology at [address] [address] Byron Brown MD [facility] [address] Medication Refill (Metoprolol) Social History Tobacco Use Types Packs/Day Years [...] Hospital Encounter Non-Invasive [place] [address] Arrived documented as of this encounter Goals Goal Patient Goal Type Associated Problems Recent Progress Patient-Stated? Author [facility] Medication Compliance and Understanding Patient Facing Action Plan On track( 017 10:41 AM EDT) Selena Scott, [facility] Note: Patient Goal: Clear hepatitis C Timeframe to meet goal: within 12 weeks of therapy documented as of this encounter Visit Diagnoses Diagnosis Atrial fibrillation with RVR - had flutter initially, then fib Atrial fibrillation documented in this encounter Care Teams Group Marketing Vp Relationship Specialty Start Date End Date Urbano Denis DO [address] [place] [address] [address] [place] [address] PCP - General 09/03/12 03/17/22 Ruchi Valles RN Nurse Clinic Transplant Surgery 07/30/15 documented as of this encounter
--- OUTSIDE RECORDS SUMMARY | 2024-02-14 11:18 | XMS_ITS | Encounter Summary ---
Author Organization [facility] [place] [address] Care Team Providers Care Taste Tester Name Role Phone Urbano Denis DO Primary Care Provider Encounter Details Date Type Department Care Team (Late st Contact Info) Description 12/30/2021 External Results [place] [phone] Social History Tobacco Use Types Packs/Day Years [...] AM EDT Hospital Encounter Non-[place] [address] Arrived documented as of this encounter Goals Goal Patient Goal Type Associated Problems Recent Progress Patient-Stated? Author [facility] Medication Compliance and Understanding Patient Facing Action Plan On track( 017 10:41 AM EDT) No Selena Cisneros, [facility] ED Note: Patient Goal: Clear hepatitis C Timeframe to meet goal: within 12 weeks of therapy documented as of this encounter Procedures Procedure Name Priority Date/Time Associated Diagnosis Comments LAB SCAN Routine 12/24/2021 documented in this encounter Results * Scan Doc: Lab (12/24/2021) Historical Provider MD PAIZ MGR SCAN EX T ORDR/RSLT documented in this encounter Visit Diagnoses Not on filedocumented in this encounter Care Teams Taste Tester Relationship Specialty Start Date End Date Urbano Denis DO [address] [place] [address] [address] [place] [address] PCP - General 09/03/12 03/17/22 Ruchi Valles RN Nurse Clinic Transplant Surgery 07/30/15 documented as of this encounter
--- OUTSIDE RECORDS SUMMARY | 2024-02-14 11:18 | XMS_ITS | Encounter Summary ---
Author Organization [facility] [place] [address] Care Team Providers Care Supervisor Assembly And Packing Name Role Phone Urbano Denis DO Primary Care Provider + [phone] Reason for Visit * Auth/Cert Specialty Diagnoses / Procedures Referred By Humberto flor Referred To Contact Diagnoses Tachy-roman syndrome Tachy-Roman Syndrome Procedures emerg robbi Niru Harrison MD [facility] [place] [address] [facility] Referral ID Status Reason Start Date Expiration Date Visits Re quested Visits Authorized [id number] 1 1 Encounter Details Date Type Department Care Team (Late st Contact Info) Description 01/31/2022 10:45 AM EDT - 01/31/2022 1:45 PM EDT Surgery [place] [address] Jay Urban MD [facility] [address] [place] [address] ELECTROPHYSIOLOGY PROCEDURE Social History Tobacco Use Types Packs/Day Years [...] Sign Reading Time Taken Comments Blood Pressure 110/94 01/31/2022 1:45 PM EDT Pulse 133 01/31/2022 1:45 PM EDT Temperature 36.9 ??C (98.4 ??F) 01/31/2022 12:00 AM E DT Respiratory Rate 16 01/31/2022 1:45 PM EDT Oxygen Saturation 96% 01/31/2022 1:45 PM EDT Inhaled Oxygen Concentration - - Weight 102.1 kg (225 lb) 01/31/2022 5:00 AM EDT Height 180.3 cm (5' 10.98) 01/30/2022 6:00 PM E DT Body Mass Index 31.12 01/30/2022 6:00 PM EDT documented in this encounter Discharge Summaries * Niru Harrison MD - 02/01/2022 9:29 AM EDT Discharge Summary Patient Name: Ethel Akins Patient Age: 71 y.o. Language: Turkish Race: White Ethnicity: Not nor Admit date: 01/30/2022 Discharge date and time: 02/01/2022 Attending Physician: Misael Ellis MD Discharge Physician: Misael Ellis MD ?? I have seen and examined this patient and discussed with the purchasing internship, resident, fellow. ??I agree with the plan noted ?? This is a 71 year old gentleman, followed by cardiology at [facility] (Dr Michael Brown). 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 ??2019 he underwent PCI, also history of basal ganglia bleed. ??Now with atrial fibrillation. He underwent pacemaker implantation (see details below). Note that we did not anticoagulate him as he has history of basal ganglia bleed. His [id number] score is high and I have reached out to his quality lead (Dr. Michael Brown) to have him follow up (attempt at restorationist of sinus, benefits:risks foranticoagulation, consideration of Watchman Device). Niru Harrison MD, Karen, FACC Attending Yard Warehouse Worker ID: Ethel Akins is a 71 y.o. 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 He was found to be in atrial fibrillation with variable block with symptomatic pauses and was admitted for PPM. Follow-up Recommendations for Providers: PCP: - Mr. Akins received a pacemaker and his metoprolol was increased during this admission. Please monitor his heart rates and up-titrate the metoprolol as tolerated. - Per EP, given Mr. Akins's permanent atrial fibrillation, he should eventually be re-started onanticoagulation if you and his neurology team deem it to be safe. PCP Contact Information: Urbano Denis, DO [address] [place] [address] / [facility] [id number] Pending Studies and Lab Data: none Discharge Diagnoses (Hospital Problems) and Secondary Diagnoses (Chronic Problems): Active Hospital Problems Diagnosis ??? Tachy-roman syndrome Resolved Hospital Problems No resolved problems to display. Active Non-Hospital Problems Diagnosis ??? Pacemaker ??? Postprandial RUQ pain ??? Gall stones [...] RVR - had flutter initially, then fib ??? Hydronephrosis ??? Obesity (BMI 30.0-34.9) ??? Debility ??? Pain of right lower extremity ??? Vitamin D deficiency ??? 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 CAH [...] ??? DJD (degenerative joint disease) ??? Hematuria History of Presentation (per 01/30/2022 Admission H&P): Mr. Akins is a 71M with a past medical history notable for NSTEMI in 2019 s/p CUATE to 95% ostial LCx, also with aflutter in 2019 previously on eliquis, hemorrhagic CVA, and tachymyopathy EF 30% since recovered, ESRD 2/2 htn/DM s/p renal transplant in 2016, also with [id number]-[id number] diabetesmellitus, who presents with 3 weeks of intermittent lightheadedness. ?? He reports that approximately 3 weeks ago intermittent lightheadedness that was random and without any associated factors. He presented to the ER 2 times, initially to [facility] where hewas incidentally found to have pulmonary opacity on chest x-ray despite lack of any infectious symptoms, and was given a course of doxycycline without change in his symptoms. He has noticed intermittently when taking his blood pressure at home and that his heart rate can be up to 130 bpm. He subsequently had a visit with his PCP, who increased his metoprolol dose from 12.5 mg to 25 mg daily, and he is not sure if his symptoms changed after that. This morning he presented to [facility] with frequent e pisodes of lightheadedness, as well as dyspnea on exertion, and was found to be in A. fib with intermittent bradycardia into the 20s. [facility] cardiology was consulted for transfer for pacemaker placement for tachybradycardia syndrome. ?? He denies any recent chest pain. Denies syncope, falls, orthopnea, denies PND, denies any infectious symptoms including cough, sinus congestion, fever/chills/night sweats. Also denies any GI or urinary symptoms. He denies recent changes in medication preceding the onset of his symptoms. He does report a recent tick bite, which was a dog tick that was in place for about 24 hours. ?? At [facility] labs were notable for WBC 10.3, hemoglobin 15.3, creatinine 1.9 (up from 1.4 in June 2021), proBNP 5400. He was slightly hypomagnesemic to 1.5 mg/dL with potassium of 3.7. Troponin was negative and TSH was 3.08. He was given 40 mg IV Lasix for his exertional dyspnea and elevated BNP Hospital Course: Ethel Akins was admitted to the Hospital Medicine Service on 01/30/2022. The following issues were addressed and he was discharged on 02/01/2022. #Atrial fibrillation vs flutter??with??variable block #symptomatic systolic pauses #CAD #HTN #tachymyopathy with recovered EF (46% 01/2022) Mr. Akins presented as a transfer from [facility] due to symptomatic pauses in his heart rate. Telemetry demonstrated atrial fibrillation/ flutter with variable block. He was not a candidate for anticoagulation due to prior hemorrhagic CVA. His home metoprolol was held due to the symptomatic pauses. TTE demonstrated mildly reduced LV function with EF 46%, no LVOT obstruction, no VSD, and severely dilated LA. On 01/31, he underwent successful placement of a dual-chamber PPM. Metoprolol was re-started after the procedure for afib with RVR with rates in the 130s. His heart rates remained stable below 110 BPM for the remainder of his admission. EP interrogation and CXR on 02/01 demonstrated successful placement of his PPM. ?? #RAY of transplant kidney - resolved #ESRD s/p renal transplant in 2015 On presentation, his Cr was 1.9, increased from his baseline of ~1.4. This improved without intervention the following day. A tacrolimus trough on 01/31 was in the therapeutic range. He was continued on his [employer]PER[employer]OR [employer]EL[employer] tacrolimus and CellCept throughout admission.?? Procedures: Dual-Chamber Pacemaker Placement 01/31/22: - Successful implantation of a dual chamber Medtronic pacemaker via the right axillary vein under moderate sedation Important Studies and Lab Data: Recent Labs 01/30/222144 WBC 8.7 HGB 14.3 HCT 41.7 PLATELET 219 Recent Labs 02/01/22 0329 01/31/22 0816 01/30/222144 NA 143 143 144 K 3.7 3.9 3.6 CL 108* 108* 106 CO2 23 24 23 BUN 22* 22* 23* CREATININE 1.38 1.58* 1.87* MAGNESIUM 0.72 0.82 0.68* PHOS 2.9 2.7 3.3 Recent Labs 01/30/222144 BILITOT 2.4* BILIDIR 0.2 AST 17 ALT 19 ALKPHOS 61 Recent Labs 01/30/222144 INR 1.1 PTT 20* Recent Labs 01/30/222144 HA1C 6.7* Recent Labs 01/30/222144 TSH 3.44 Recent Labs 01/30/222144 HDL 33 LDLCHOL 7 CHOLHDL 2.0 TRIG 124 CHLPL 65 Imaging: TTE 01/31/22: - LV normal size with moderately increased wall thickness - No LVOT - No VSD - Mildly reduced LV systolic function (EF 46%) with mild global hypokinesis - Severely dilated LA - Mild - Mild dilation of aortic root and ascending aorta Discharge Conditions/Prognosis: Upon discharge the patient is hemodynamically stable, afebrile, fully ambulatory without supplemental oxygen, holding down food/drink, and pain free Vital Signs: Last value Range last 24 hrs Temperature Temp: 36.8 ??C (98.2 ??F) Temp: [36.8 ??C (98.2 ??F)-36.9 ??C (98.4 ??F)] Heart Rate Heart Rate: 71 Heart Rate: [41-140] Blood Pressure BP: 144/76 BP: (104-152)/(67-123) Respiratory Rate Resp: 15 Resp: [0-25] SpO2 SpO2: 96 % SpO2: [88 %-97 %] Discharge to: home without services Discharge Medications: Your Medications Continued medications with new dosing Dose Details amLODIPine 5 mg Tab Commonly known as: Norvasc Take 1 tablet by mouth daily. Start taking on: February 02, 2022 What changed: ?? medication strength ?? how much to take 5 mg Quantity: 90 tablet Refills: 3 metoprolol succinate XL 25 mg Tablet sr Commonly known as: Toprol-XL Take 2 tablets by mouth daily. What changed: how much to take 50 mg Quantity: 90 tablet Refills: 2 Continued medications, unchanged Dose Details acetaminophen 500 mg Tab Commonly known as: Tylenol Take 1,000 mg by mouth every 8 hours as needed for Pain. 1,000 mg Refills: 0 ascorbic acid (Vitamin C) 500 mg Tab Commonly known as: Vitamin C Take 1 tablet by mouth 3 times daily. 500 mg Quantity: 270 tablet Refills: 2 aspirin EC 81 mg Tbec Take 81 mg by mouth daily. 81 mg Refills: 0 atorvastatin 40 mg Tab Commonly known as: [...] daily. 100 mg Quantity: 180 tablet Refills: 3 levothyroxine 137 mcg Tab Commonly known as: SYNTHROID Take 137 mcg by mouth daily. 137 mcg Refills: 0 Magnesium Gluconate 27 mg magnesium (500 mg) Tab TAKE TWO TABLETS BY MOUTH EVERY MORNING, ONE TABLET AT NOON, AND TWO TABLETS EVERY EVENING Quantity: 450 tablet Refills: 3 multivitamin with minerals and lutein Tab Take 2 tablets by mouth daily. 2 tablet Quantity: 180 tablet Refills: 2 mycophenolate 250 mg Cap Commonly known as: Cellcept Take 1 capsule by mouth 2 times daily. 250 mg Quantity: 60 capsule Refills: 11 nitroGLYcerin 0.4 mg Subl Commonly known as: Nitrostat Place 1 tablet under the tongue every 5 minutes as needed for Chest pain. 0.4 mg Quantity: 90 tablet Refills: 12 tacrolimus 1 mg Cap Commonly known as: Prograf TAKE TWO CAPSULES BY MOUTH EVERY MORNING AND ONE CAPSULE NIGHTLY Quantity: 90 capsule Refills: 11 tamsulosin 0.4 mg Cap Commonly known as: Flomax Take 0.4 mg by mouth daily. 0.4 mg Refills: 0 Updated Allergies/ADRs: No Known Allergies Instructions Given to Patient at Discharge: Patient Instructions Patient Instructions on Discharge to Home You were hospitalized because your heart was skipping beats. This was due to an abnormal heart rhythm called atrial fibrillation/ atrial flutter with variable AV block. The top chambers (atria) beat in a disorganized fashion, and only some of those beats are transmitted to the lower chambers (ventricles). The electrophysiology team put in a pacemaker so you won't have pauses in your heart beat. New Medications - The dose of your metoprolol was increased to 50 mg per day When to call your doctor: - Chest pain, worsening shortness of breath, fatigue with usual exertion, or new rest/night time symptoms. -If you become short of breath, cannot lie down to sleep, or have swelling in your legs/ankles or abdomen, contact your health care provider. - Call for signs of increased wound drainage, redness, swelling, or increased pain at the site of your cardiac cath. - Call if you develop a temperature >100.5 Activity level: -No heavy lifting (more than five pounds) for 48 hours; no more than 10 pounds for one week. -You may return to work in 1 week. Use common sense. Don't exhaust yourself. -No hunting, skiing, jogging, lawn mowing, swimming, golf or tennis until after your return appointment with your primary care doctor. Diet: -Heart healthy: low salt, low fat, low concentrated sweets. Remember to avoid added salt, canned foods, processed foods (ie hot dogs, sausage, cold meats), and foods naturally high in salt, such as potato chips or pizza. Driving: -Per your routine after 48 hrs Shower/Bath: -You may shower 24 hours after cardiac catheterization. -You may not sit in water for 5 days (tub bath, hot tub or pool). Wound Care: -Cath site dressing may be removed in 24 hours. Site may be washed with soap/water. A dressing doesnot need to be reapplied unless irritation occurs with underclothes. If irritation occurs, apply clean band-aid daily. Exercise: -Exercise 5-7 days per week as tolerated with gradual increase to 30 minutes per day. Smoking cessation: -If you are currently a smoker, you are strongly urged to stop smoking! Smoking increases the severity and incidence of heart disease, and is a risk factor for cancer and emphysema. Your health care provider can provide specific measures to assist you, including nicotine supplements, anti-anxiety meds, and support groups in your community. Return to work: One week Driving: No driving for 48 hours after catheterization. Home oxygen therapy: N/A Arrangements for VNA/home care: none Follow up Appointments: Please make sure that you see your PCP within 7-14 days of leaving the hospital. PCP: Urbano Denis, @ [phone] General Instructions - BEGIN EP DISCHARGE INSTRUCTIONS - FINAL PACEMAKER RECOMMENDATIONS: 1. Standard post implant discharge instructions (see below): 2. Medications as listed above. 3. You may use ice packs over the incision. Make sure to use a printing gray cloth tender (such as a towel) in between the ice pack and the bare skin and that it stays DRY. 4. Follow up in pacemaker clinic for a wound check and device check. DEVICE CLINIC 1. You will be scheduled for a wound check in the Device Clinic for: ?? Incision check ?? Device interrogation ?? Review of remote follow up and set up of home monitor 2. Your device will be checked every 3 months (either in clinic or by remote). 3. Prior to discharge, you will be given a home monitor so that your device can send clinical data to the device clinic nurses. If you are unable to set this up at home prior to your wound check, we will review this at the time of your appointment NOTE: The device data we review from your home monitor is comparable to an in- office appointment. Therefore, your insurance company will be billed for review of your data. Depending on your coverage,you may be responsible for a portion of his charge. We recommend that you contact your insurance carrier for more details about your particular coverage. WOUND CARE FOR YOUR INCISION: Your wound will usually heal in 7-10 days. Your wound may be tender, it may appear slightly red andbumpy and there may be dry, crusty scabbing. These are all normal. How to Care for your Incision: - Either you or someone with you needs to look at the wound every day. - Report any signs of infection immediately: ?? Drainage ?? Swelling ?? Warmth ?? Increased pain ?? Fevers/chills - Call if you are concerned about infection or the edges of the wound separate - A needle should not be put into the wound area because this can damage the device. ?? You may need to remind your healthcare provider of this concern - There are sutures inside the incision that will dissolve on their own - Do not scratch or rub the wound - Do not apply creams, lotions, or ointments to the incision until is completely healed. - You may cover the wound with gauze if it rubs on clothing and causes discomfort - Protect your wound from injury until the skin has had sufficient time to heal - Do not shower for 48 hours after implant - While in the shower, turn your back to the water nozzle so you avoid direct water pressure on thewound. Continue this for 7-10 days. - After 48 hours, you may wash the wound gently with soap and water (unless there is DermaBond on the incision - see below) - Do not submerge the incision (bathtubs, hot tubs, or swimming) for at least two weeks Your incision has been covered with a Mepilex dressing. - This dressing will stay on for 7 days. - Please remove the dressing on: Thursday, February 08, 2022 - If the edges pull up substantially or fluid gets underneath the Mepilex dressing, remove it sooner - Once removed, you may notice some grayish discoloration. This is normal. Your incision has been closed with: Dermabond - This is a sterile, liquid skin adhesive that holds wound edges together. The film will usually remain in place for a few weeks, then naturally sloughs (falls) off your skin. - Do not scratch, rub, or pick at the Dermabond adhesive film. This may loosen the film before yourwound is healed. - Protect the wound from prolonged exposure to sunlight or tanning lamps while the film is in place - You may occasionally and briefly wet your wound in the shower or bath. Do not soak or scrub your wound, do not swim, and avoid periods of heavy perspiration until the Dermabond adhesive has naturally fallen off. After showering or bathing, gently blot your wound dry with a soft towel Your incision has been closed with: SteriStrips - These are thin adhesive strips placed over your incision to help it heal. - Leave them in place until they fall off (approximately 10-14 days) - Do not scratch, rub, or pick at them. This may pull at your incision before it is completely healed, which can increase the risk of infection. CALL IMMEDIATELY: If you develop chest pain, shortness of breath, bleeding, discharge from the incision, opening of the incision and/or fever/temperature >100 degrees F. The office scheduling phone number is [phone]. ARM MOVEMENT RESTRICTIONS POST-IMPLANT - Do not raise your elbow on [...] for 6 weeks - No driving for 1 week If you have any questions or concerns about this product, please call the device clinic at [phone]. - END EP DISCHARGE INSTRUCTIONS - Future Appointments and Orders Future Appointments and Orders Future Appointments Provider Department Dept Phone 02/05/2022 11:00 AM Byron Brown MD Cardiology at [facility] Arrive at: Diagnostic Sales Specialist Area [phone] 02/12/2022 11:00 AM Elisha Amaya RN Cardiology at [facility] Arrive at: Diagnostic Sales Specialist Area [phone] 04/04/2022 1:30 PM Mayco Barnes PA Cardiology at [facility] Arrive at: Diagnostic Sales Specialist Area [phone] 05/05/2022 1:30 PM Elisha Amaya RN Cardiology at [facility] Arrive at: Diagnostic Sales Specialist Area [phone] Primary Team Inpatient Physicians at [facility] was: Attending Physician(s): Niru Harrison MD Fellow: Que Raygoza MD Resident(s): Kayy Acosta MD Inpatient Provider Contact Information: If you have questions about this document please contact the [facility] tetryl nitrator operator at and ask for one of the providers above. If these providers are unavailable your call will be answered by an on- call hospital physician. Discharge References/Attachments: Discharge References/Attachments None Kayy Acosta MD Internal Medicine PGY-1 02/01/22 9:28 AM documented in this encounter Discharge Instructions * Discharge Instructions* Pavan Billingsley PA - 01/31/2022 4:50 PM EDT - BEGIN EP DISCHARGE INSTRUCTIONS - FINAL PACEMAKER RECOMMENDATIONS: 1. Standard post implant discharge instructions (see below): 2. Medications as listed above. 3. You may use ice packs over the incision. Make sure to use a printing gray cloth tender (such as a towel) in between the ice pack and the bare skin and that it stays DRY. 4. Follow up in pacemaker clinic for a wound check and device check. DEVICE CLINIC 1. You will be scheduled for a wound check in the Device Clinic for: ?? Incision check ?? Device interrogation ?? Review of remote follow up and set up of home monitor 2. Your device will be checked every 3 months (either in clinic or by remote). 3. Prior to discharge, you will be given a home monitor so that your device can send clinical data to the device clinic nurses. If you are unable to set this up at home prior to your wound check, we will review this at the time of your appointment NOTE: The device data we review from your home monitor is comparable to an in- office appointment. Therefore, your insurance company will be billed for review of your data. Depending on your coverage,you may be responsible for a portion of his charge. We recommend that you contact your insurance carrier for more details about your particular coverage. WOUND CARE FOR YOUR INCISION: Your wound will usually heal in 7-10 days. Your wound may be tender, it may appear slightly red andbumpy and there may be dry, crusty scabbing. These are all normal. How to Care for your Incision: - Either you or someone with you needs to look at the wound every day. - Report any signs of infection immediately: Drainage Swelling Warmth Increased pain Fevers/chills - Call if you are concerned about infection or the edges of the wound separate - A needle should not be put into the wound area because this can damage the device. You may need to remind your healthcare provider of this concern - There are sutures inside the incision that will dissolve on their own - Do not scratch or rub the wound - Do not apply creams, lotions, or ointments to the incision until is completely healed. - You may cover the wound with gauze if it rubs on clothing and causes discomfort - Protect your wound from injury until the skin has had sufficient time to heal - Do not shower for 48 hours after implant - While in the shower, turn your back to the water nozzle so you avoid direct water pressure on thewound. Continue this for 7-10 days. - After 48 hours, you may wash the wound gently with soap and water (unless there is DermaBond on the incision - see below) - Do not submerge the incision (bathtubs, hot tubs, or swimming) for at least two weeks Your incision has been covered with a Mepilex dressing. - This dressing will stay on for 7 days. - Please remove the dressing on: Thursday, February 08, 2022 - If the edges pull up substantially or fluid gets underneath the Mepilex dressing, remove it sooner - Once removed, you may notice some grayish discoloration. This is normal. Your incision has been closed with: Dermabond - This is a sterile, liquid skin adhesive that holds wound edges together. The film will usually remain in place for a few weeks, then naturally sloughs (falls) off your skin. - Do not scratch, rub, or pick at the Dermabond adhesive film. This may loosen the film before yourwound is healed. - Protect the wound from prolonged exposure to sunlight or tanning lamps while the film is in place - You may occasionally and briefly wet your wound in the shower or bath. Do not soak or scrub your wound, do not swim, and avoid periods of heavy perspiration until the Dermabond adhesive has naturally fallen off. After showering or bathing, gently blot your wound dry with a soft towel CALL IMMEDIATELY: If you develop chest pain, shortness of breath, bleeding, discharge from the incision, opening of the incision and/or fever/temperature >100 degrees F. The office scheduling phone number is [phone]. ARM MOVEMENT RESTRICTIONS POST-IMPLANT - Do not raise your elbow on [...] for 6 weeks - No driving for 1 week If you have any questions or concerns about this product, please call the device clinic at [phone]. - END EP DISCHARGE INSTRUCTIONS - * Patient Instructions* Kayy Acosta MD - 01/31/2022 3:55 PM EDT Patient Instructions on Discharge to Home You were hospitalized because your heart was skipping beats. This was due to an abnormal heart rhythm called atrial fibrillation/ atrial flutter with variable AV block. The top chambers (atria) beat in a disorganized fashion, and only some of those beats are transmitted to the lower chambers (ventricles). The electrophysiology team put in a pacemaker so you won't have pauses in your heart beat. New Medications - The dose of your metoprolol was increased to 50 mg per day When to call your doctor: - Chest pain, worsening shortness of breath, fatigue with usual exertion, or new rest/night time symptoms. -If you become short of breath, cannot lie down to sleep, or have swelling in your legs/ankles or abdomen, contact your health care provider. - Call for signs of increased wound drainage, redness, swelling, or increased pain at the site of your cardiac cath. - Call if you develop a temperature >100.5 Activity level: -No heavy lifting (more than five pounds) for 48 hours; no more than 10 pounds for one week. -You may return to work in 1 week. Use common sense. Don't exhaust yourself. -No hunting, skiing, jogging, lawn mowing, swimming, golf or tennis until after your return appointment with your primary care doctor. Diet: -Heart healthy: low salt, low fat, low concentrated sweets. Remember to avoid added salt, canned foods, processed foods (ie hot dogs, sausage, cold meats), and foods naturally high in salt, such as potato chips or pizza. Driving: -Per your routine after 48 hrs Shower/Bath: -You may shower 24 hours after cardiac catheterization. -You may not sit in water for 5 days (tub bath, hot tub or pool). Wound Care: -Cath site dressing may be removed in 24 hours. Site may be washed with soap/water. A dressing doesnot need to be reapplied unless irritation occurs with underclothes. If irritation occurs, apply clean band-aid daily. Exercise: -Exercise 5-7 days per week as tolerated with gradual increase to 30 minutes per day. Smoking cessation: -If you are currently a smoker, you are strongly urged to stop smoking! Smoking increases the severity and incidence of heart disease, and is a risk factor for cancer and emphysema. Your health care provider can provide specific measures to assist you, including nicotine supplements, anti-anxiety meds, and support groups in your community. Return to work: One week Driving: No driving for 48 hours after catheterization. Home oxygen therapy: N/A Arrangements for VNA/home care: none Follow up Appointments: Please make sure that you see your PCP within 7-14 days of leaving the hospital. PCP: Urbano Denis, @ [phone] documented in this encounter Medications at Time [...] by mouth daily. metoprolol succinate XL (Toprol-XL) 25 mg Tablet [...] times daily. 180 tablet 3 03/19/2021 04/15/2022 Magnesium Gluconate 27 mg magnesium (500 mg) Tablet TAKE TWO TABLETS BY MOUTH EVERY MORNING, ONE TABLET AT NOON, AND TWO TABLETS EVERY EVENING 450 tablet 3 01/20/2021 02/13/2022 documented as of this encounter Progress Notes * Shannan Carey RN - 02/01/2022 2:50 PM EDT CXR and device interrogation done this morning by CAROLIN. Domenic mario remains CDI. AVS reviewed with pt and at bedside, questions answered and copy provided. IV/tele removed. Pt being discharged home with . * Nikolas Loving MD - 02/01/2022 9:40 AM EDT Interrogation of Mr. Akins's Medtronic dual chamber pacemaker was performed on day 1 post implant. Device pocket appears without swelling, erythema, bleeding. There is mild tenderness. Chest X ray reviewed, demonstrating appropriate lead position and no pneumothorax. Interrogation: RA lead: sensing 0.4 mV, pace impedance 342 ohms, pace threshold (n/a, af) RV lead: Sensing 9 mV, pace impedance 475 ohms, pace threshold 0.5 V @ 0.4 ms Programming change: turned on monitoring of far field EGM, turned off near field EGM Device function is normal. Consideration of anticoagulation going forward for stroke prophylaxis in the setting of atrial fibrillation is recommended, bearing in mind the patient's history of intracranial hemorrhage. Mr. Akins is referred to his primary quality lead ,Dr. Brown and his neurologist, Dr. Rebolledo regarding this issue. Post implant arm restrictions discussed. Follow up at [facility] device clinic. Nikolas Loving MD [facility] Cardiac Electrophysiology 02/01/2022 9:44 AM * Nikolas Loving MD - 02/01/2022 9:17 AM EDT Cardiac Electrophysiology Post-Implant Device Assessment/Rounding Note Ethel Akins [id number] 02/01/2022 History: Ethel Akins is a 71 y.o. 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 He is POD#1 of dual-chamber pacemaker implant for tachy-roman syndrome. Physical Exam: Vitals: 01/31/22 2347 02/01/22 0423 02/01/22 0523 02/01/22 0733 BP: 138/76 124/75 144/76 BP Location (NBP): Right arm Right arm Patient Position: Lying Sitting Pulse: 100 83 71 Resp: (!) 0 13 15 Temp: 36.9 ??C (98.4 ??F) 36.8 ??C (98.2 ??F) TempSrc: Oral Oral SpO2: 97% 93% 96% Weight: 101.2 kg (223 lb) Height: General- No acute distress, laying comfortably in bed. Skin- Pocket incision is CDI. Edges are approximated without drainage. Surgical glue is intact. Cardiovascular- S1/S2 regular rate and rhythm. No murmur. Lungs- Clear to auscultation bilaterally Neuro- A&Ox3 Device Interrogation: Data IMPLANTED HARDWARE and FINAL LEAD PARAMETERS: Pulse generator: ? 1. KIT digital Geneva XT DR MRI Model #W1DR01, Serial # [id number] Atrial lead ?? 1. Medtronic CapsureFix Model# 5076-45 cm Serial# [id number] ??? Bipolar, steroid-tipped, active-fixation IS-1 lead ??? Access: ? Right Axillary vein ??? Location ? Right atrial appendage ??? F wave, pacemaker: ?? 0.6 mV ??? Pacing threshold, pacemaker: N/A (pt in atrial flutter) ??? Impedance, pacemaker: ??437 Ohms ??? Diaphragmatic Stim. @ 8V: ??No Ventricular electrode: ?? Medtronic CapsureFix Model# 5076-52 cm Serial# [id number] ??? Bipolar, steroid-tipped, active-fixation IS-1 lead ??? Access: ? Right Axillary vein ??? Location: ?Right ventricular apical septum ??? R wave, pacemaker: ?11.1 mV ??? Pacing threshold, pacemaker: 0.5 V at 0.4 ms ??? Impedance, pacemaker: ??607 ohms ??? Diaphragmatic Stim. @ 8V : No Diagnostics Pacing Mode: AAIR <==> DDDR 60/130/130 Presenting EGMs: -VS/-NETWORK SECURITY ARCHITECT Underlying Rhythm: AFib 70-80's Atrial Episodes: 97.2% AFIb since 01/31/2022 Ventricular Episodes: None Atrial Pacin.4% Ventricular Pacin.3% (MVP ON) Thoracic Impedance: --- HR Histogram: Appropriate Battery and Leads Voltage: Initializing Status: Initializing Magnet Rate: 85bpm Charge Time: --- Impedances (ohms) Sensing (mV) Thresholds HV RA RV LV RA RV LV RA RV LV ---- 342 475 ---- 0.5 9.0 ---- AFib: N/A 0.25V @ 0.40ms ---- POD#1 CXR: FINDINGS: Interval placement of right anterior chest wall generator with dual intact leads projected the right atrium and right ventricle. No pneumothorax. No pleural effusion. No consolidation. Cardiac, mediastinal hilar contours are normal. No displaced rib fracture. ?? IMPRESSION No pneumothorax status post placement of right anterior chest wall dual-semiconductor testing group leader. Impression: 71 y.o. male who is s/p dual-chamber pacemaker implant for tachy-roman. - Appropriate device function post-implant - CXR negative for post-implant complications - No programming changes made Plan: 1. Reviewed standard post-implant discharge instructions (see patient instructions) including arm restrictions, wound care, bathing, and driving 2. No medication changes. 3. Follow up in device clinic for wound/device check in ~10 days MCKINLEY Hawkins 02/01/2022 I met with the patient today and independently confirmed the history, physical exam, and testing. Ipersonally reviewed and interpreted the available ECGs and additional cardiac testing (echo), as well as the labs. I agree with the detailed management plan as written in the PA note today. I discussed this plan with the patient, who is also in agreement. ?? PLEASE SEE MY SEPARATE PROGRESS NOTE DATED 02/01/22. ? Dr. Nikolas Loving, electrophysiology attending ([id number]) * Niru Harrison MD - 02/01/2022 9:09 AM EDT Cardiology Day of Discharge Note ?? I have seen and examined this patient and discussed with the purchasing internship, resident, fellow. ??I agree with the plan noted ?? This is a 71 year old gentleman, followed by cardiology at [facility] (Dr Michael Brown). 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 ??2019 he underwent PCI, also history of basal ganglia bleed. ??Now with atrial fibrillation. He underwent pacemaker implantation (see details below). Note that we did not anticoagulate him as he has history of basal ganglia bleed. His [id number] score is high and I have reached out to his quality lead (Dr. Michael Brown) to have him follow up (attempt at restorationist of sinus, benefits:risks foranticoagulation, consideration of Watchman Device). ?? Niru Harrison MD, Karen, [facility] Cardiology Attending? Ethel Akins was seen and examined on rounds. Vital signs were stable, a thorough physical exam was conducted, and the patient's most recent lab values were reviewed. Last value Range last 24 hrs Temperature Temp: 36.8 ??C (98.2 ??F) Temp: [36.8 ??C (98.2 ??F)-36.9 ??C (98.4 ??F)] Heart Rate Heart Rate: 71 Heart Rate: [41-140] Blood Pressure BP: 144/76 BP: (104-152)/(67-123) Respiratory Rate Resp: 15 Resp: [0-25] SpO2 SpO2: 96 % SpO2: [88 %-97 %] General: Awake, alert, responsive, cooperative with exam, in no apparent distress HEENT: atraumatic and normocephalic; PERRL, EOMI, anicteric sclera Cardiovascular: Irregularly irregular rhythm, regular rate, normal S1 and S2, no murmurs, gallops, or rubs Respiratory: Lungs clear to auscultation bilaterally with good air movement; no wheezes, crackles, or rhonchi GI: Abdomen soft, non-tender, and non-distended without rebound or guarding; normoactive bowel sounds Extremities: Warm and well perfused, 2+ DP pulses bilaterally, trace pitting edema bilaterally Skin: Warm and dry; no rashes, ecchymosis, or lesions Neuro: A&0x3, speech grossly intact Assessment/Plan: Medications were reviewed, and a discharge plan was finalized. IV access was removed, and the patient was provided with educational material prior to discharge. Mr. Akins was discharged in stable condition. Please see the discharge summary (02/01/2022) for a comprehensive assessment and plan. Kayy Acosta MD Internal Medicine PGY-1 02/01/22 9:09 AM * Roseanna Moss RN - 01/31/2022 3:37 PM EDT Since pt came back from the ep lab his hr was 130 and up. Initially tx team was paged, and later asked to order some medication. Finally some iv metoprolol was ordered and waiting for pharmacy approval to administer * Niru Harrison MD - 01/31/2022 6:44 AM EDT Inpatient Cardiology Progress Note ?? I have seen and examined this patient and discussed with the purchasing internship, resident, fellow. I agree withthe plan noted ?? This is a 71 year old gentleman, followed by cardiology at [facility] (Dr Michael Brown). He has history of renal transplant, previous tachy-cardia mediated cardiomyopathy but recovered LV systolic function. 2019 he underwent PCI, also history of basal ganglia bleed. Now with atrial fibrillation. He will be ev aluated for pacemaker implantation--question of tachy/roman syndrome. ?? Niru Harrison MD, Karen, [facility] Cardiology Attending ?? Patient Name: Ethel Akins Date of Admission: 01/30/2022 ( Hospital Day 1 day ) Service: S1 ID: Ethel Akins is a 71 y.o. 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 He was found to be in atrial fibrillation with variable block with symptomatic pauses and was admitted for PPM. Active Problems: Active Hospital Problems Diagnosis ??? Tachy-roman syndrome Resolved Hospital Problems No resolved problems to display. 24 hr events: - Admitted to Cardiology service for symptomatic atrial fibrillation/ flutter with variable block - EP determined that he should receive dual chamber PPM - NAEO - Feeling well this morning. Has palpitations, but this is normal for him and not associated with other sx. No CP, SOB, lightheadedness, dizziness. ROS: Denies CP, SOB, PND, Orthopnea, dizziness/LH, LE swelling or pain, n/v, abd pain. Physical Exam: Last value Range last 24 hrs Temperature Temp: 36.9 ??C (98.4 ??F) Temp: [36.9 ??C (98.4 ??F)] Heart Rate Heart Rate: (!) 109 Heart Rate: [53-137] Blood Pressure BP: 126/75 BP: (103-149)/(54-107) Respiratory Rate Resp: 15 Resp: [15-23] SpO2 SpO2: 96 % SpO2: [91 %-97 %] Weight: Patient Vitals for the past 168 hrs: Weight 01/31/22 0500 102.1 kg (225 lb) 01/30/22 1800 99.8 kg (220 lb) Admit Weight: 99.79 kg Yesterday's net I/O's: Intake/Output Summary (Last 24 hours) at 01/31/2022 1055 Last data filed at 01/31/2022 1000 Gross per 24 hour Intake 0 ml Output 725 ml Net -725 ml Patient Vitals for the past 168 hrs: Weight 01/31/22 0500 102.1 kg (225 lb) 01/30/22 1800 99.8 kg (220 lb) General: Awake, alert, responsive, cooperative with exam, in no apparent distress HEENT: atraumatic and normocephalic; PERRL, EOMI, anicteric sclera Cardiovascular: Regularly rate and rhythm with occasional ectopy, normal S1 and S2, no murmurs, gallops, or rubs Respiratory: Lungs clear to auscultation bilaterally with good air movement; no wheezes, crackles, or rhonchi GI: Abdomen soft, non-tender, and non-distended without rebound or guarding; normoactive bowel sounds Extremities: Warm and well perfused, 2+ DP pulses bilaterally, trace pitting edema bilaterally Skin: Warm and dry; no rashes, ecchymosis, or lesions Neuro: A&0x3, speech grossly intact Labs Recent Labs 01/30/22 214 WBC 8.7 HGB 14.3 HCT 41.7 PLATELET 219 Recent Labs 01/31/22 0816 01/30/22 214 NA 143 144 K 3.9 3.6 CL 108* 106 CO2 24 23 BUN 22* 23* CREATININE 1.58* 1.87* Recent Labs 01/30/22 214 AST 17 ALT 19 ALKPHOS 61 BILITOT 2.4* BILIDIR 0.2 Recent Labs 01/31/22 0816 01/30/222144 CALCIUM 8.9 9.0 MAGNESIUM 0.82 0.68* PHOS 2.7 3.3 Recent Labs 01/30/222144 INR 1.1 PT 12.9* PTT 20* No results for input(s): CK, TROPONINT in the last 168 hours. Telemetry: Atrial fibrillation and atrial flutter with variable block Imaging/Studies: TTE 01/31/22: - LV normal size with moderately increased wall thickness - No LVOT - No VSD - Mildly reduced LV systolic function (EF 46%) with mild global hypokinesis - Severely dilated LA - Mild - Mild dilation of aortic root and ascending aorta Scheduled Medications: ??? ceFAZolin 2 g Intravenous Once ??? BUpivacaine (pf) 30 mL Subcutaneous Once ??? ceFAZolin 2 g Intravenous Once ??? lidocaine 20 mL Subcutaneous Once ??? neomycin-polymyxin B Irrigation Once ??? sodium chloride 0.9 % (flush) 5 mL Intravenous BID ??? amLODIPine 5 mg Oral Daily ??? atorvastatin 40 mg Oral QPM ??? calciTRIoL 0.5 mcg Oral Daily ??? hydrALAZINE 100 mg Oral BID ??? levothyroxine 137 mcg Oral Daily ??? mycophenolate 250 mg Oral BID ??? tamsulosin 0.4 mg Oral Daily ??? tacrolimus 2 mg Oral Daily ??? tacrolimus 1 mg Oral Nightly ??? aspirin EC 81 mg Oral Daily ? ? insulin lispro 1-6 Units Subcutaneous 4 Times Daily AC & HS ??? insulin lispro 0-8 Units Subcutaneous TID WC ??? insulin glargine (Lantus;Semglee) (100 unit/mL) subcutaneous injection 10 Units Subcutaneous Nightly PRN Medications: magnesium sulfate OR magnesium sulfate, iohexoL, midazolam (PF), fentaNYL (PF), ondansetron, flumazeniL, naloxone, sodium chloride 0.9 % (flush), lidocaine, nitroGLYcerin, acetaminophen, glucose 40% oral geL OR dextrose 10% OR glucagon Assessment and Plan: Ethel Akins is a 71 y.o. 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 He was found to be in atrial fibrillation/ flutter with variable block. Despite a beta buddy, he continued to have symptomatic pauses and was determined to be a good candidate for dual-chamber PPM placement today. #Atrial fibrillation vs flutter with variable block #symptomatic systolic pauses Unable to take anticoagulation due to hx of hemorrhagic CVA. EP believes he would benefit from PPM. - Dual-chamber PPM to be placed today - Hold AV augie blockade; consider amio if persistently tachy - Hold AC given prior ICH - replete Mg>1 and K>4 ?? #RAY of transplant kidney - improving #ESRD s/p renal transplant in 2015 His RAY is resolving, with Cr close to his baseline today. - Consulted transplant - daily BMP - Follow-up AM tacro trough - continue home tacrolimus 2mg qam and 1mg qpm - continue home mycophenilate 250mg bid - continue home calcitriol 0.5mcg daily ?? #CAD #HTN #tachymyopathy with recovered EF (46% 01/2022) LVEF today 46% with mild global hypokinesis. - home amlodipine 5mg daily - home asa 81 - home lipitor 40 - home hydralazine 100mg bid - consider SGLT2 on discharge for HF and DM ?? #DM2 - Hold home glipizide - Lantus 10 units nightly - Moderate correctional and mealtime ? Chronic/stable problems: #gilbert disease, chronic indirect hyperbilirubinemia #hypothyroidism - home synthroid 137mcg #BPH - home flomax 0.4mg ?? # Routine DVT ppx- hold pending PPM Diet: NPO for PPM Dispo- After PPM placement, likely 02/01 CODE STATUS: Attempt Cardiopulmonary Resuscitation - Inpatient Code Status: Attempt Cardiopulmonary Resuscitation - Inpatient Kayy Acosta MD Internal Medicine PGY-1 Pager [phone], M1-S1 Service * Carmela Alicia RN - 01/31/2022 6:09 AM EDT OUTCOME EVALUATION NOTE: OUTCOME SUMMARY: Patient AO4. BP/O2 stable on RA. Aflutter on tele, with multiple 2 to 3.5 second pauses, rates 25-130. Patient c/o brief episodes of dizziness associated with lower heart rates. Bedrest maintained. SCDs on. NPO since midnight. Call robles within reach. PLAN MOVING FORWARD: AM labs w/ tacrolimus level at 0800 NPO for PPM INDIVIDUALIZED FALL PREVENTION INTERVENTIONS: Patient-specific fall risk factors per assessment: [current deficits]: generalized weakness, unfamiliar environment, tubes/wires. Assistance [level of assistance required for transfers and ambulation]: bedrest Supervision [direct monitoring required during toileting and ADLs]: Hourly rounding, room near RN station, call robles in reach. Surveillance [continuous indirect monitoring]: Tele and O2 monitoring Patient-specific fall prevention interventions for sensory deficits provided, if applicable: Lighting adjusted for tasks for safety, non skid socks, bed lowered and in locked position. CPG GOAL OUTCOME EVALUATION: ongoing * Sonia Yu RN - 01/30/2022 6:30 PM EDT Patient admitted from outside hospital. Alert and oriented, denies any pain or shortness of breath.Afib on tele rate of 32-135 with multiple 2-4 second pauses. Patient states he gets dizzy at times when his heart rate drops but this quickly resolves. MD at bedside. Awaiting orders. documented in this encounter H&P Notes * Niru Harrison MD - 01/30/2022 7:30 PM EDT Images from the original note were not included. Cardiology Admission History and Physical I have seen and examined this patient and discussed with the purchasing internship, resident, fellow. I agree withthe plan noted This is a 71 year old gentleman, followed by cardiology at [facility] (Dr Michael Brown). He has history of renal transplant, previous tachy-cardia mediated cardiomyopathy but recovered LV systolic function. 2019 he underwent PCI, also history of basal ganglia bleed. Now with atrial fibrillation. He will be ev aluated for pacemaker implantation--question of tachy/roman syndrome. Niru Harrison MD, Karen, [facility] Cardiology Attending Patient Name: Ethel Akins Service: Cardiology Team Responsible Attending: MISAEL ELLIS MD PCP: Urbano Denis DO PCP phone #: [phone] ID/Chief Complaint: Lightheadedness Tachybradycardia syndrome History of Present Illness: Mr. Black is a 71M with a past medical history notable for NSTEMI in 2019 s/p CUATE to 95% ostialLCx, also with aflutter in 2019 previously on eliquis, hemorrhagic CVA, and tachymyopathy EF 30% since recovered, ESRD 2/2 htn/DM s/p renal transplant in 2016, also with baz-cssmhaw-iuzdsagac diabetes mellitus, who presents with 3 weeks of intermittent lightheadedness. He reports that approximately 3 weeks ago intermittent lightheadedness that was random and without any associated factors. He presented to the ER 2 times, [facility] to [facility] where hewas incidentally found to have pulmonary opacity on chest x-ray despite lack of any infectious symptoms, and was given a course of doxycycline without change in his symptoms. He has noticed intermittently when taking his blood pressure at home and that his heart rate can be up to 130 bpm. He subsequently had a visit with his PCP, who increased his metoprolol dose from 12.5 mg to 25 mg daily, and he is not sure if his symptoms changed after that. This morning he presented to [facility] with frequent e pisodes of lightheadedness, as well as dyspnea on exertion, and was found to be in A. fib with intermittent bradycardia into the 20s. [facility] cardiology was consulted for transfer for pacemaker placement for tachybradycardia syndrome. He denies any recent chest pain. Denies syncope, falls, orthopnea, denies PND, denies any infectious symptoms including cough, sinus congestion, fever/chills/night sweats. Also denies any GI or urinary symptoms. He denies recent changes in medication preceding the onset of his symptoms. He does report a recent tick bite, which was a dog tick that was in place for about 24 hours. At [facility] labs were notable for WBC 10.3, hemoglobin 15.3, creatinine 1.9 (up from 1.4 in June 2021), proBNP 5400. He was slightly hypomagnesemic to 1.5 mg/dL with potassium of 3.7. Troponin was negative and TSH was 3.08. He was given 40 mg IV Lasix for his exertional dyspnea and elevated BNP Review of Systems: GENERAL HEENT CV PULM X All negative X All negative x All negative All negative Weight loss Headache Chest Pain Non-productive cough Weight gain Vision change Palpitations Productive cough Fevers Sinus congestion Orthopnea Wheezing Chills Hoarseness LE edema Hemoptysis Night sweats Epistaxis PND Pleuritic pain Fatigue Syncope SOB Claudication x [facility] ENDO GI X All negative X All negative X All negative X All negative Arthralgias Frequency Heat intolerance Blood in stool Myalgias Urgency Cold intolerance Dysphagia Weakness Hematuria Polydipsia Odynophagia Stiffness Flank pain Polyphagia Abdominal discomfort Dysuria Cushingoid Constipation Foamy urine Diarrhea Discharge Nausea/Vomiting LYMPH SKIN NEURO PSYCH X All negative X All negative All negative X All negative Swollen nodes Rash Seizures Depressed affect Tender nodes Ulcers Tremors Occupational stress Diffuse nodes Bruising Spasticity Anxiety Local nodes Tanned skin Focal weakness Insomnia Night sweats Telangiectasias Diplopia Paresthesias x Dizziness Problem List/Past Medical History Patient Active Problem List Diagnosis ??? Tachy-roman syndrome ??? Postprandial RUQ pain ??? Gall [...] RVR - had flutter initially, then fib ??? Hydronephrosis ??? Obesity (BMI 30.0-34.9) ??? Debility ??? Pain of right lower extremity ??? Vitamin D deficiency ??? 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 CAH [...] ??? DJD (degenerative joint disease) ??? Hematuria Meds: No current facility-administered medications on file prior to encounter. Current Outpatient Medications on File Prior to Encounter Medication Sig Dispense Refill ??? atorvastatin (Lipitor) 40 mg Tablet Take [...] 2 times daily. 60 capsule 11 ??? metoprolol succinate XL (Toprol-XL) 25 mg Tablet Sustained Release 24 hr TAKE ONE TABLET BY MOUTH EVERY DAY (Patient taking differently: Take 25 mg by mouth daily.) 90 tablet 2 ??? hydrALAZINE (Apresoline) 100 mg Tablet Take 1 tablet by mouth 2 times daily. 180 tablet 3 ??? amLODIPine (Norvasc) 2.5 mg Tablet Take 1 tablet by mouth daily. (Patient taking differently: Take 5 mg by mouth daily.) 90 tablet 0 ??? Magnesium Gluconate 27 mg magnesium (500 [...] Take 0.4 mg by mouth daily. ??? levothyroxine (SYNTHROID) 137 mcg Tablet Take 137 mcg by mouth daily. ??? nitroGLYcerin (NITROSTAT) 0.4 mg Tablet, Sublingual Place 1 tablet under the tongue every 5 minutes as needed for Chest pain. 90 tablet 12 ??? acetaminophen (TYLENOL) 500 mg Tablet Take 1,000 mg by mouth every 8 hours as needed for Pain. Allergies: No Known Allergies Family History: Family History Problem Relation Age of Onset ??? Chronic Obstructive Pulmonary Disease Mother ??? Arrhythmia Mother ??? Heart Disease Father Social History: Social History Socioeconomic History ??? Marital status: Spouse name: Not on file ??? Number of children: Not on file ??? Years of education: Not on file ??? Highest education level: Not on file Occupational History ??? Not on file Tobacco Use ??? Smoking status: Current Some Day Smoker Packs/day: 0.00 Years: 30.00 Pack years: 0.00 Types: Cigars Last attempt to quit: 01/02/2015 Years since quittin.0 ??? Smokeless tobacco: Never Used ??? Tobacco comment: cigars, one weekly Vaping Use ??? Vaping [...] on file Housing Stability: Not on file Vitals: Last value Range last 24 hrs Temperature Temp: 36.9 ??C (98.4 ??F) Temp: [36.9 ??C (98.4 ??F)] Heart Rate Heart Rate: 95 Heart Rate: [69-95] Blood Pressure BP: (!) 133/98 BP: (133-149)/(93-98) Respiratory Rate Resp: 18 Resp: [18-21] SpO2 SpO2: 94 % SpO2: [94 %-97 %] Intake/Output Summary (Last 24 hours) at 01/30/20222104 Last data filed at 01/30/2022 1800 Gross per 24 hour Intake 0 ml Output -- Net 0 ml Admit wt: 99.79 kg ABG No results for input(s): PHART, [id number], PO2ART, [id number] in the last 168 hours. Examination: General - No acute distress. Resting comfortably on stretcher ENT - Mouth moist without lesions Eyes - EOMI. Not jaundiced. Noninjected Neck - No lymphadenopathy. No thyromegaly. Normal JVP visualized 3cm above sternal angle at 45degrees Lungs - Clear to auscultation bilaterally without wheezes or rales Heart - RRR, S1,S2, no audible murmur, gallop or rubs. Abdomen/GI - Soft, nontender, normal active bowel sounds, neg hsm or masses. Extremities - No clubbing, cyanosis or edema. Radial/DP Pulses intact distally. Neuro - alert and oriented to self, situation, and conversation, strength and sensation intact throughout, CNII-XII intact During exam, patient reports episodes of lightheadeness corresponding with pauses on telemetry. Laboratory: CBC: Recent Labs 06/19/21 1127 WBC 8.0 HGB 15.6 PLATELET 249 Chemistry: Recent Labs 06/19/21 1127 NA 142 K 4.4 CL 105 CO2 29 BUN 23* CREATININE 1.39 GLUCOSE 109 Recent Labs 06/19/21 1127 CALCIUM 10.0 MAGNESIUM 0.74 PHOS 2.6 LFT's: Recent Labs 06/19/21 1127 BILITOT 2.5* ALBUMIN 4.2 ALKPHOS 69 ALT 22 AST 19 Coags: No results for input(s): PT, INR, PTT, FIBRINOGEN, DDIMER in the last 168 hours. Invalid input(s): THROMBIN TIME Cardiac Enzymes No results for input(s): CK, TROPONINT, PROBNP in the last 168 hours. Endocrine: No results for input(s): TSH, CORTISOL in the last 7068 hours. Invalid input(s): [id number] Heme: No results for input(s): LDH, HAPTOGLOBIN, URICACID in the last 168 hours. Microbiology: None Diagnostic Studies: No results found for this visit on 01/30/22. EKG here 01/30: Prior EKG at [facility] 01/10: CXR 01/30/22- MRI brain at [facility] 01/16/22: ASSESSMENT: Mr. Black is a 71M with a PMH notable for CAD, remote aflutter in 2018, having stopped AC due to basal ganglia hemorrhage 02/2021, also with tachymyopathy in 2018 with EF 30% at that time that hassince recovered, ESRD 2/2 htn/DM s/p renal transplant in 2015, who presents with 3 weeks of intermittent lightheadedness, found to have aflutter with variable block and frequent symptomatic pauses, transferred from [facility]. 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 Unclear trigger of his recurrent aflutter that was not detected on prior zioin 03/2021. No recent ischemic or infectious symptoms and exam today is benign. PLAN: Admit to Cardiology Team S1, Team Pager #[phone](S1) #Aflutter with variable block #symptomatic systolic pauses -consult EP for aflutter and ppm -TTE -hold av augie blockade, consider amio if persistently tachy -Hold AC given prior ICH -Discuss ablation with EP -replete Mg>1 and K>4 #RAY of transplant kidney #ESRD s/p renal transplant in 2016 -Creatinine 1.9 increased from baseline 1.4 last June -Consulted transplant -Urine lytes -daily BMP -check AM tacro trough -continue home tacrolimus 2mg qam and 1mg qpm -continue home mycophenilate 250mg bid -continue home calcitriol 0.5mcg daily #CAD #htn #tachymyopathy with recovered EF -home amlodipine 5mg daily -home asa 81 -home lipitor 40 -home hydralazine 100mg bid -consider SGLT2 on discharge for HF and DM #DM2 -Hold home glipizide 10 mg twice daily -Lantus 10 units nightly -Moderate correctional and mealtime Chronic/stable problems: #gilbert disease, chronic indirect hyperbilirubinemia #hypothyroid - home synthroid 137mcg #BPH - home flomax 0.4mg # Routine DVT ppx- hold pending ppm Nutrition-Regular diet NPO diet (Give Meds) Dispo- Admit to cardiology CODE STATUS: Attempt Cardiopulmonary Resuscitation - Inpatient Les Garcia MD Medicine, PGY-2 Cardiology Team S1, pager #[phone] 01/30/2022 documented in this encounter Miscellaneous Notes * Plan of Care - Sreedhar Arambula RN - 02/01/2022 4:44 AM EDT OUTCOME EVALUATION NOTE: OUTCOME SUMMARY: Uneventful night. No chest pain or sob reported. Pacemaker dressing CDI, no hematoma noted. VSS. Afib on on tele with freq pacing, see saved strips. NPO since midnight. PLAN MOVING FORWARD: Chest xray Discharge planing * Plan of Care - Roseanna Moss RN - 01/31/2022 6:51 PM EDT OUTCOME EVALUATION NOTE: OUTCOME SUMMARY: Pt went to the ep lab today for PPM placement, upon his return his HR was steady 130 b/m until he had dose of iv metoprolol at 15.45, later he received oral metoprolol 12.5 mg, and hr is mostly 65-80with bursts of 120. Pt has apnea and o2 sats in 90 on ra. PLAN MOVING FORWARD: NPO after mn for xr INDIVIDUALIZED FALL PREVENTION INTERVENTIONS: Patient-specific fall risk factors per assessment: [current deficits]: cables and wires Assistance [level of assistance required for transfers and ambulation]: sba Supervision [direct monitoring required during toileting and ADLs]: escort to the br Surveillance [continuous indirect monitoring]: telemetry Patient-specific fall prevention interventions for sensory deficits provided, if applicable: CPG GOAL OUTCOME EVALUATION: ongoing * Consult Note - Erasmo Gonzales MD - 01/31/2022 8:31 AM EDT Images from the original note were not included. [facility] [place] [address] [place] [address] CARDIOLOGY ELECTROPHYSIOLOGY NOTE 01/31/22 Consult Reason: Lightheadedness in the setting of afib/aflutter tachy-roman syndrome and ESRD status HPI: Mr. Akins is a pleasant 71 yo M with hx of atypical aflutter/afib, HTN, tachy-roman syndrome, renal transplant who was transferred to [facility] on 01/30/22 for frequent episodes of lightheadedness. Patient shares that starting three weeks ago he has had several episodes of lightheadedness that lasted seconds long. Associated symptoms included funny vision but he denies blurred or dark vision. He has not had any dizziness, palpitations, chest pain/discomfort, flushing, falls, syncope/pre-syncope or shortness of breath. Also no leg swelling, orthopnea, PND, or med noncompliance. He had associated dyspnea once last night. He presented to the ED in [facility] three times over the past three weeks and the most recent visit prompted his transfer. He went to the ED because the lightheadedness was bothersome and he checks his vitals at home and pulse was up to 130s. He believes the minimumHR was ~30 at home since onset. He notes that he was previously told by his neurologist to go to the ED if HR was > 120. He has never had similar symptoms earlier in life. Other relevant hx is he was previously on anticoagulation but this was stopped at the time of his hemorrhagic stroke in 2020. He follows with Dr. Brown in cardiology clinic. His mother had a hx of arrhythmia but he is unclear on the type. He is right hand dominant. Has had remote bilateral shouldersurgery. ROS: complete review of systems negative except for otherwise noted above. 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 Retired. Allergy: + [place] No medication allergies No current facility-administered medications on file prior to encounter. Current Outpatient Medications on File Prior to Encounter Medication Sig Dispense Refill ??? atorvastatin (Lipitor) 40 mg Tablet Take [...] 2 times daily. 60 capsule 11 ??? metoprolol succinate XL (Toprol-XL) 25 mg Tablet Sustained Release 24 hr TAKE ONE TABLET BY MOUTH EVERY DAY (Patient taking differently: Take 25 mg by mouth daily.) 90 tablet 2 ??? hydrALAZINE (Apresoline) 100 mg Tablet Take 1 tablet by mouth 2 times daily. 180 tablet 3 ??? amLODIPine (Norvasc) 2.5 mg Tablet Take 1 tablet by mouth daily. (Patient taking differently: Take 5 mg by mouth daily.) 90 tablet 0 ??? Magnesium Gluconate 27 mg magnesium (500 [...] Take 0.4 mg by mouth daily. ??? levothyroxine (SYNTHROID) 137 mcg Tablet Take 137 mcg by mouth daily. ??? nitroGLYcerin (NITROSTAT) 0.4 mg Tablet, Sublingual Place 1 tablet under the tongue every 5 minutes as needed for Chest pain. 90 tablet 12 ??? acetaminophen (TYLENOL) 500 mg Tablet Take 1,000 mg by mouth every 8 hours as needed for Pain. Objective: Vitals: 01/31/22 0500 01/31/22 0600 01/31/22 0800 01/31/22 1017 BP: (!) 118/96 139/82 126/75 Pulse: (!) 101 79 (!) 109 Resp: Temp: TempSrc: SpO2: 97% 93% 96% Weight: 102.1 kg (225 lb) Height: Physical Exam General: pleasant older male, resting in bed, visibly dizzy briefly mid way during conversation; ASA class II HEENT: Mallampati class II, normocephalic CV: Irregular, tachycardic, soft systolic murmur, no gallop Pulm: CTAB, no crackles GI: soft, nontender MSK: normal bulk and tone Extremities: warm and dry, no edema; LUE AVF Neuro: AOx3, EOMI, no facial droop or focal weakness Skin: no rash Labs: Lab Results Component Value Date NA 143 01/31/2022 K 3.9 01/31/2022 CL 108 (H) 01/31/2022 CO2 24 01/31/2022 BUN 22 (H) 01/31/2022 CREATININE 1.58 (H) 01/31/2022 GLUCOSE 137 01/31/2022 GLUCFASTING 153 (H) 09/12/2019 CALCIUM 8.9 01/31/2022 ESTGFR 46 (L) 01/31/2022 CV Studies: Telemetry reviewed 01/31 AM: Numerous pauses lasting 2-3 seconds since admission EKG 01/30/22 (my interpretation): afib, HR 95, LAFB, qtc 500 EKG 01/30/22 at [facility]: afib, HR 76 TTE 01/31/22: LVEF 46% LV systolic function mildly reduced Mild global hypokinesis RV systolic function mildly decreased LA is severely dilated Mild aortic stenosis TTE 12/2020: Mild concentric hypertrophy LVEF 59% RV systolic function normal Estimated PASP is 22 mm Hg LA is moderately dilated RA is mildy dilated Mild aortic valve stenosis TTE 01/2019: Mild concentric hypertrophy Rhythm Afib LVEF estimated to be 30% with beat to beat variation (compared to prior this is a significant decrease) Diffuse hypokinesis Zio Patch 03/14/2021: Duration of recording 13 days Predominant underlying rhythm was sinus rhythm Minimum HR 41 bpm / max HR 82 bpm / average HR 57 bpm Frequent brief episodes of supraventricular tachycardia occurred. The longer episodes that were logged as SVT are in fact sinus rhythm, and all the documented episodes of SVT are brief. Cardiac Catheterization 06/25/2019: L main - mild diffuse disease < 25% LAD - mild diffuse disease < 25% LCx - mild diffuse disease < 25%; there was 95% stenosis of the ostial segment of the first obtuse marginal branch of the LCx - stented RCA - mild diffuse disease < 25% Assessment and Plan: #Atypical Aflutter/Afib Patient has tachy-roman syndrome with frequent 3 second pauses and tachycardia to HR > 130. He has become increasingly symptomatic over the past three weeks. He was transferred to [facility] for EP evaluation. He has a hx of renal transplant in 2016 and developed an RAY with Cr up to 1.8s from 1.2 oneyear ago here. For this reason, optimizing his cardiac output with better rate control is needed to protect the transplanted kidney. He qualifies for a dual chamber pacemaker. QUALITY ASSURANCE was considered but this will not be necessary given his EF. Mallampati II and ASA II. Moderate sedation should be appropriate. Consent has been obtained. I have discussed with patient's transplant specialist, Dr. Eagle that there is no contraindication toaccessing the LUE for pacemaker in the L chest wall despite the residual AVF in LUE that is no longer being used. Plan / Recommendations: -NPO for dual chamber pacemaker today -Consider asking neurology/NSGY for evaluation of if AC can be resumed in the future or if it should never be tried again given hx of brain bleed Thank you for this consult. Patient care was discussed with EP attending, Dr. Gonzales. Attestation to follow. Anali Dominguez MD Snuff Box Finisher, PGY4 Pager [phone] Addendum I personally interviewed and examined the patient, reviewed the available data. The above note reflects our thoughts and discussion. This 71-year-old man is transferred from [facility], for consideration of pacemaker therapy for tachycardia/bradycardia. His past medical history includes coronary artery disease, with a NSTEMI in 2019 (drug-eluting stent to 95% ostial circumflex), hemorrhagic CVA following which she is anticoagulation was discontinued, tachycardia myopathy with an EF of 30%, end-stage renal disease and renal transplant in 2016. He has insulin-dependent diabetes mellitus. Zio patch performed in March 2021, was remarkable for predominantly sinus rhythm with frequent premature atrial contractions, and e vidence of chronotropic incompetence with an average heart rate 57 bpm, and a maximum sinus rate of82 bpm. He was transferred because of multiple recent evaluations in the emergency room, for lightheadedness and dizziness, with atrial fibrillation/rapid ventricular rates as well as atrial fibrillation with slow ventricular response. Echocardiogram today shows LVEF approximately 46%. His QRS is narrow. He is a good candidate for dual-chamber pacemaker implantation under moderate sedation, he is right-hand dominant, has a left-sided shunt/fistula, that has not been used in a number of years, but still appears to be functional. He could have a left-sided dual-chamber pacemaker (with a larger risk of hematoma), versus a right-sided dual-chamber pacemaker (slightly technically more difficult). Moderate sedation is acceptable strategy, cefazolin prophylaxis. After pacemaker was implanted, his beta-buddy to be uptitrated. With his paroxysmal to persistentatrial fibrillation, and elevated [id number] score, CVA protection should be considered. ERASMO GONZALES MD documented in this encounter Plan of Treatment Upcoming Encounters Date Type Department Care Team (Late st Contact Info) Description 04/15/2024 10:00 AM EDT Hospital Encounter Non-In[place] [address] Arrived Scheduled Orders Name Type Priority Associated Diagnoses Orde r Schedule EKG 12 Lead ECG Routine Atrial fibrillation with RVR - had flutter initially, then fib Tachy-roman syndrome One Time for 1 Occurrences starting 01/31/2022 until 01/31/2022 documented as of this encounter Goals Goal Patient Goal Type Associated Problems Recent Progress Patient-Stated? Author Home Medication Compliance and Understanding Patient Facing Action Plan On track( 017 10:41 AM EDT) Selena Scott, [facility] Note: Patient Goal: Clear hepatitis C Timeframe to meet goal: within 12 weeks of therapy documented as of this encounter Procedures Procedure Name Priority Date/Time Associated Diagnosis Comments POCT GLUCOSE Routine 02/01/2022 1:13 PM EDT POCT GLUCOSE Routine 02/01/2022 11:21 AM EDT POCT GLUCOSE Routine 02/01/2022 11:09 AM EDT XR CHEST PA AND LATERAL Routine 02/02/20 7:56 AM EDT POCT GLUCOSE Routine 02/01/2022 7:32 AM EDT HC PHOSPHORUS, SERUM Routine 02/01/2022 3:29 AM EDT HC MAGNESIUM, SERUM Routine 02/01/2022 3 :29 AM EDT HC VENIPUNCTURE Routine 02/01/2022 3:29 AM EDT POCT GLUCOSE Routine 01/31/2022 8:37 PM EDT POCT GLUCOSE Routine 01/31/2022 5:05 PM EDT POCT GLUCOSE Routine 01/31/2022 2:31 PM EDT ELECTROPHYSIOLOGY PROCEDURE Routine 01/31/2022 1:49 PM EDT POCT GLUCOSE Routine 01/31/2022 11:00 AM EDT ECHO COMPLETE Routine 01/31/2022 8:29 AM EDT Atrial fibrillation with RVR HC [id number] (TACROLIMUS) Timed 8:16 AM EDT HC PHOSPHORUS, SERUM Routine 01/31/2022 8:16 AM EDT HC MAGNESIUM, SERUM Routine 01/31/2022 8 :16 AM EDT HC VENIPUNCTURE Routine 01/31/2022 8:16 AM EDT POCT GLUCOSE Routine 01/31/2022 8:07 AM EDT URINALYSIS MICROSCOPIC EXAM Routine 01/31/2022 1:30 AM EDT HC SODIUM, URINE Routine 01/31/2022 1:30 AM EDT HC CREATININE - NON BLOOD Routine 01/31/2022 1:30 AM EDT URINALYSIS WITH REFLEX CULTURE Routine 01/31/2022 1:30 AM EDT POCT GLUCOSE Routine 01/31/2022 12:06 AM EDT HEMOGRAM Routine 01/30/2022 9:45 PM EDT DIFFERENTIAL, AUTOMATED Routine 01/31/20 9:45 PM EDT HC PARTIAL THROMBOPLASTIN TIME Routine 01/30/2022 9:45 PM EDT HC PROTHROMBIN TIME Routine 01/30/2022 9 :45 PM EDT HC CBC,PLT & AUTO DIFF Routine 9:45 PM EDT HC THYROID STIMULATING HORMONE, SERUM Routine 01/30/2022 9:45 PM EDT HC PHOSPHORUS, SERUM Routine 01/30/2022 9:45 PM EDT HC PROBNP Routine 01/30/2022 9:45 PM EDT HC MAGNESIUM, SERUM Routine 01/30/2022 9 :45 PM EDT HEMOGLOBIN A1C Routine 01/30/2022 9:45 PM EDT HEPATIC FUNCTION PANEL Routine 9:45 PM EDT LIPID PANEL (REFLEX DIRECT LDL) Routine 01/30/2022 9:45 PM EDT BASIC METABOLIC PANEL Routine 01/30/2022 9:45 PM EDT EKG 12-LEAD Routine 01/30/2022 7:53 PM EDT Atrial fibrillation with RVR - had flutter initially, then fib Bradycardia documented in this encounter Results * POCT Glucose (02/01/2022 1:13 PM EDT) Glucose, POC 120 65 - 199 mg/dL [facility] Comment: Supplemental ranges: <140 mg/dL before meals <180 mg/dL all other times of the day Blood 02/01/2022 1:13 PM EDT 02/01/2022 1:13 PM EDT Misael Ellis MD POINT OF CARE TEST O RDERABLES [facility] [place] [address] * (ABNORMAL) POCT Glucose (02/01/2022 11:21 AM EDT) Glucose, POC 254(H) 65 - 199 mg/dL [facility] Comment: Supplemental ranges: <140 mg/dL before meals <180 mg/dL all other times of the day Blood 02/01/2022 11:2 1 AM EDT 02/01/2022 11:21 AM EDT Misael Ellis MD POINT OF CARE TEST O TED Performing Organization Address [facility] Co de Phone Number [facility] [place] [address] * (ABNORMAL) POCT Glucose (02/01/2022 11:09 AM EDT) Glucose, POC 218(H) 65 - 199 mg/dL [facility] Comment: Supplemental ranges: <140 mg/dL before meals <180 mg/dL all other times of the day Blood 02/01/2022 11:0 9 AM EDT 02/01/2022 11:09 AM EDT Misael Ellis MD POINT OF CARE TEST O TED Performing Organization Address [facility] de Phone Number [facility] [place] [address] * XR Chest PA & Lateral (Generic) (02/01/2022 7:56 AM EDT) Anatomical Region Laterality Modality Chest N/A Digital Radiogra phy Impressions 02/01/2022 11:17 AM EDT No pneumothorax status post placement of right anterior chest wall dual-semiconductor testing group leader. Thank you for letting us participate in the care of this patient. ??If you are a health care provider and have any questions regarding this report, please contact the number below. ??For patients who have questions please contact the health laboratory animal care veterinarian that requested your imaging first. ? Narrative 02/01/2022 11:17 AM EDT EXAMINATION: XR CHEST PA AND LATERAL (GENERIC) CLINICAL HISTORY: posyt pacer TECHNIQUE: PA and lateral views of the chest COMPARISON: January 30, 2022 FINDINGS: Interval placement of right anterior chest wall generator with dual intact leads projected the right atrium and right ventricle. No pneumothorax. No pleural effusion. No consolidation. Cardiac, mediastinal hilar contours are normal. No displaced rib fracture. Procedure Note Kitty Valencia MD - 02/01/2022 EXAMINATION: XR CHEST PA AND LATERAL (GENERIC) CLINICAL HISTORY: posyt pacer TECHNIQUE: PA and lateral views of the chest COMPARISON: January 30, 2022 FINDINGS: Interval placement of right anterior chest wall generator with dual intactleads projected the right atrium and right ventricle. No pneumothorax. No pleural effusion. No consolidation. Cardiac, mediastinal hilar contoursare normal. No displaced rib fracture. IMPRESSION No pneumothorax status post placement of right anterior chest walldual-semiconductor testing group leader. Thank you for letting us participate in the care of this patient. If youare a health care provider and have any questions regarding this report,please contact the number below. For patients who have questions please contactthe health laboratory animal care veterinarian that requested your imaging first. Jay Urban MD IMG DX ORDERABLES * POCT Glucose (02/01/2022 7:32 AM EDT) Glucose, POC 133 65 - 199 mg/dL [facility] Comment: Supplemental ranges: <140 mg/dL before meals <180 mg/dL all other times of the day Blood 02/01/2022 7:32 AM EDT 02/01/2022 7:32 AM EDT Misael Ellis MD POINT OF CARE TEST O RDERABLES [facility] [place] [address] * Phosphorus (02/01/2022 3:29 AM EDT) Phosphorus 2.9 2.5 - 4.5 mg/dL [facility] Blood 02/01/2022 3:29 AM EDT 02/01/2022 3:43 AM EDT Narrative Resulting Agency Comment Spec In Lab Jay Urban MD CHEMISTRY ORDERABLES Performing Organization Address City/[facility]/ZIP Co de Phone Number [facility] [place] [address] * Magnesium (02/01/2022 3:29 AM EDT) Pathologist [facility] Magnesium 0.72 0.69 - 1.07 mmol/L [facility] Blood 02/01/2022 3:29 AM EDT 02/01/2022 3:43 AM EDT Narrative Resulting Agency Comment Spec In Lab Jay Urban MD CHEMISTRY ORDERABLES Performing Organization Address City/[facility]/ZIP Co de Phone Number [facility] [place] [address] * (ABNORMAL) Basic Metabolic Panel (non-fasting) (02/01/2022 3:29 AM EDT) Glucose 104 65 - 199 mg/dL [facility] Comment:Diabetes: >=200 mg/d L plus symptoms Blood Urea Nitrogen 22(H) 10 - 20 mg/dL [facility] Creatinine 1.38 0.80 - 1.50 mg/dL [facility] Sodium 143 135 - 145 mmol/L [facility] Potassium 3.7 3.5 - 5.0 mmol/L [facility] Comment: Please note: ??Patients with WBC >100,000 may have falsely elevated Potassium levels. ??For accurate Potassium quantification in these patients send serum separator tube (gold top) for subsequent determinations. ??Contact the Clinical Chemistry Laboratory if there are any questions. Chloride 108(H) 98 - 107 mmol/L [facility] Carbon Dioxide 23 22 - 31 mmol/L [facility] Anion Gap 12 5 - 15 mmol/L [facility] Calcium 8.4(L) 8.5 - 10.5 mg/dL [facility] Est Glomerular Filtration Rate 54(L) >=60 mL/min/1. 73 m?? [facility] Comment: This patient's estimated GFR was [...] and symptoms in addition to eGFR. Blood 02/01/2022 3:29 AM EDT 02/01/2022 3:43 AM EDT Narrative Resulting Agency Comment Spec In Lab Jay Urban MD CHEMISTRY ORDERABLES [facility] [place] [address] * POCT Glucose (01/31/2022 8:37 PM EDT) Glucose, POC 99 65 - 199 mg/dL [facility] Comment: Supplemental ranges: <140 mg/dL before meals <180 mg/dL all other times of the day Blood 01/31/2022 8:37 PM EDT 01/31/2022 8:37 PM EDT Misael Ellis MD POINT OF CARE TEST O RDERABLES [facility] [place] [address] * (ABNORMAL) POCT Glucose (01/31/2022 5:05 PM EDT) Glucose, POC 225(H) 65 - 199 mg/dL [facility] Comment: Supplemental ranges: <140 mg/dL before meals <180 mg/dL all other times of the day Blood 01/31/2022 5:05 PM EDT 01/31/2022 5:05 PM EDT Misael Ellis MD POINT OF CARE TEST O DENNYSERABG Performing Organization Address [facility] Co de Phone Number [facility] [place] [address] * POCT Glucose (01/31/2022 2:31 PM EDT) Glucose, POC 124 65 - 199 mg/dL [facility] Comment: Supplemental ranges: <140 mg/dL before meals <180 mg/dL all other times of the day Blood 01/31/2022 2:31 PM EDT 01/31/2022 2:31 PM EDT Misael Ellis MD POINT OF CARE TEST O TED Performing Organization Address [facility] de Phone Number [facility] [place] [address] * ELECTROPHYSIOLOGY PROCEDURE (01/31/2022 1:49 PM EDT) Anatomical Region Laterality Modality Other Narrative 01/31/2022 2:09 PM EDT [facility] ELECTROPHYSIOLOGY LABORATORY CARDIAC DEVICE OPERATIVE NOTE PATIENT: Ethel Akins DATE OF OPERATION: 01/31/2022 PHYSICIAN VICE PRESIDENT (Fountain Pen Nibs Inspector): JAY URBAN MD, PhD COLLECTIONS AND ARCHIVES DIRECTOR: Anali Dominguez MD REFERRING WATERWORKS SUPERVISOR: Niru Harrison MD PRE-PROCEDURE DIAGNOSIS/INDICATION(S): 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 Implantation of a permanent transvenous dual chamber pacemaker system ANESTHESIA: local and monitored anesthesia care INTRAVENOUS CONTRAST: 10 mL Omnipaque FLUOROSCOPY TIME & DOSE: 13.2 minutes, 119 Gycm2 ESTIMATED BLOOD LOSS: 15 mL COMPLICATIONS: none immediate IMPLANTED HARDWARE and FINAL LEAD PARAMETERS: Pulse generator: ? 1. Medtronic Doffing XT DR MRI Model #W1DR01, Serial # [id number] Atrial lead ?? 1. Medtronic CapsureFix Model# 5076-45 cm Serial# [id number] ? ? Bipolar, steroid-tipped, active-fixation IS-1 lead ? ? Access: ? Right Axillary vein ? ? Location ? Right atrial appendage ? ? F wave, pacemaker: ?? 0.6 mV ? ? Pacing threshold, pacemaker: N/A (pt in atrial flutter) ? ? Impedance, pacemaker: ??437 Ohms ? ? Diaphragmatic Stim. @ 8V: ??No Ventricular electrode: ?? Medtronic CapsureFix Model# 5076-52 cm Serial# [id number] ? ? Bipolar, steroid-tipped, active-fixation IS-1 lead ? ? Access: ? Right Axillary vein ? ? Location: ?Right ventricular apical septum ? ? R wave, pacemaker: ?11.1 mV ? ? Pacing threshold, pacemaker: 0.5 V at 0.4 ms ? ? Impedance, pacemaker: ??607 ohms ? ? Diaphragmatic Stim. @ 8V : No DESCRIPTION OF PROCEDURE: After informed consent was obtained and verified, the patient was brought to the procedure room in stable condition. Prophyllactic antibiotics were administered intravenously. Time-out was performed per protocol. ??The chest was prepped and draped in the usual sterile fashion. Procedural sedation was provided by means of incremental doses intravenous midazolam ??and fentanyl. I was present during the intra-service time as documented by the sedation RN. Local anesthetic (2% lidocaine and 0.5 bupivicaine in a 2:3 ratio) was administered subcutaneously over the location of te apparent axillary vein by ultrasound. The vein was attempted to be cannulated under sonographic guidance however we were unable to advance either a micropuncture or standard J wire into the central circulation. Local venography demonstrated that we had entered the vein at the location of a valve. I then accessed the vein more medially under fluoroscopic guidance using modified ??Seldinger micropuncture technique. A Cumberland ??wire was advanced to the right atrium under fluoroscopic guidance. Over the guide wire, a 9-Tunisian long peel-away Safe-sheath was inserted into the vein. The dilator was removed and the wire retained. The right ventricular lead was positioned in the right ventriclar apical septum ?? using standard stylet techniques under fluoroscopic guidance and actively fixated. There were good sensing,initial injury current and ??pacing threshold, and lead impedance. Mechanical stability was good. No diaphragmatic stimulation occurred at maximum output pacing. The sheath was peeled away. Over the retained guide wire, a 7 Tunisian peel-away Safe-sheath was inserted into the vein and the dilator and guidewire removed. An atrial lead was positioned in the right atrial appendage using standard stylet techniques under fluoroscopic guidance and actively fixated. There was good sensing, injury current and and lead impedance. Underlying flutter prevented the measurement of capture threshold. Mechanical stability was good. No diaphragmatic stimulation occurred at maximum output pacing. The sheath was peeled away and the leads were secured to the prepectoral fascia using O-silk . Both leads passed the tug test at the level of the suture tie-downs. Additional local anesthetic was administered to the prepectoral fascial plane. A subcutaneous pocket was made using blunt and electrocautery dissection. The pocket was irrigated with saline solution containing neosporin . Hemostasis was achieved. The leads were then inserted into the appropriate header ports of the device and the set-screws activated. The lead(s) passed the tug test at the level of the device header. The device was then inserted into a TYRX antibiotic eluting absorbable pouch and the assembly was inserted into the pocket where it sat well. A retention suture was not indicated. The wound was closed with interrupted and continuous stitches of 2-0 Vicryl ??and the skin was closed with a subcuticular stitch of 4-0 Monocryl . ??Medical adhesive (Dermabond) was applied to the incision which was covered with a Mepilex Ag dressing. ??Cinefluoroscopy documented the final implant positions. The patient left the procedure room in good and stable condition. Final programming was: AAIR<->DDDR 60-130 CONCLUSION: 1) Successful implantation of a dual chamber Medtronic pacemaker via the right axillary vein under moderate sedation. I was present during the intra-service time as documented by the sedation RN. 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 The patient's spouse Mara was updated immediately following the procedure. Recommend no systemic anticoagulation x 72 hours minimum. Electronically signed by: Jay Urban MD, PhD, [facility] Procedure Note Jay Urban MD - 01/31/2022 [facility] ELECTROPHYSIOLOGY LABORATORY CARDIAC DEVICE OPERATIVE NOTE PATIENT: Ethel Akins DATE OF OPERATION: 01/31/2022 PHYSICIAN VICE PRESIDENT (Fountain Pen Nibs Inspector): JAY URBAN MD, PhD COLLECTIONS AND ARCHIVES DIRECTOR: Anali Dominguez MD REFERRING WATERWORKS SUPERVISOR: Niru Harrison MD PRE-PROCEDURE DIAGNOSIS/INDICATION(S): paroxysmal atrialfibrillation/flutter and tachy-roman syndrome POST-PROCEDURE DIAGNOSIS: same PROCEDURE(S) PERFORMED: 1. Implantation of a permanent transvenous dualchamber pacemaker system ANESTHESIA: local and monitored anesthesia care INTRAVENOUS CONTRAST: 10 mL Omnipaque FLUOROSCOPY TIME & DOSE: 13.2 minutes, 119 Gycm2 ESTIMATED BLOOD LOSS: 15 mL COMPLICATIONS: none immediate IMPLANTED HARDWARE and FINAL LEAD PARAMETERS: Pulse generator: 1. Medtronic Doffing XT DR MRI Model #W1DR01, Serial # [id number] Atrial lead 1. Medtronic CapsureFix Model# 5076-45 cm Serial# [id number] ? ? Bipolar, steroid-tipped, active-fixation IS-1 lead ? ? Access: Right Axillary vein ? ? Location Right atrial appendage ? ? F wave, pacemaker: 0.6 mV ? ? Pacing threshold, pacemaker: N/A (pt in atrial flutter) ? ? Impedance, pacemaker: 437 Ohms ? ? Diaphragmatic Stim. @ 8V: No Ventricular electrode: Medtronic CapsureFix Model# 5076-52 cm Serial# [id number] ? ? Bipolar, steroid-tipped, active-fixation IS-1 lead ? ? Access: Right Axillary vein ? ? Location: Right ventricular apical septum ? ? R wave, pacemaker: 11.1 mV ? ? Pacing threshold, pacemaker: 0.5 V at 0.4 ms ? ? Impedance, pacemaker: 607 ohms ? ? Diaphragmatic Stim. @ 8V : No DESCRIPTION OF PROCEDURE: After informed consent was obtained and verified, the patient was broughtto the procedure room in stable condition. Prophyllactic antibiotics wereadministered intravenously. Time-out was performed per protocol. Thechest was prepped and draped in the usual sterile fashion. Procedural sedation was provided by means of incremental doses intravenousmidazolam and fentanyl. I was present during the intra-service time asdocumented by the sedation RN. Local anesthetic (2% lidocaine and 0.5 bupivicaine in a 2:3 ratio) wasadministered subcutaneously over the location of te apparent axillary veinby ultrasound. The vein was attempted to be cannulated under sonographicguidance however we were unable to advance either a micropuncture orstandard J wire into the central circulation. Local venography demonstrated that we had entered the vein at the locationof a valve. I then accessed the vein more medially under fluoroscopic guidance usingmodified Seldinger micropuncture technique. A Cumberland wire was advanced tothe right atrium under fluoroscopic guidance. Over the guide wire, a 9-Tunisian long peel-away Safe-sheath was insertedinto the vein. The dilator was removed and the wire retained. The rightventricular lead was positioned in the right ventriclar apical septumusing standard stylet techniques under fluoroscopic guidance and activelyfixated. There were good sensing,initial injury current and pacingthreshold, and lead impedance. Mechanical stability was good. Nodiaphragmatic stimulation occurred at maximum output pacing. The sheathwas peeled away. Over the retained guide wire, a 7 Tunisian peel-away Safe-sheath wasinserted into the vein and the dilator and guidewire removed. An atriallead was positioned in the right atrial appendage using standard stylettechniques under fluoroscopic guidance and actively fixated. There wasgood sensing, injury current and and lead impedance. Underlying flutterprevented the measurement of capture threshold. Mechanical stability wasgood. No diaphragmatic stimulation occurred at maximum output pacing. The sheath was peeled away and the leads were secured to the prepectoralfascia using O-silk . Both leads passed the tug test at the level of thesuture tie-downs. Additional local anesthetic was administered to the prepectoral fascialplane. A subcutaneous pocket was made using blunt and electrocauterydissection. The pocket was irrigated with saline solution containingneosporin . Hemostasis was achieved. The leads were then inserted into theappropriate header ports of the device and the set-screws activated. Thelead(s) passed the tug test at the level of the device header. The devicewas then inserted into a TYRX antibiotic eluting absorbable pouch and theassembly was inserted into the pocket where it sat well. A retentionsuture was not indicated. The wound was closed with interrupted and continuous stitches of 2-0Vicryl and the skin was closed with a subcuticular stitch of 4-0 Monocryl. Medical adhesive (Dermabond) was applied to the incision which wascovered with a Mepilex Ag dressing. Cinefluoroscopy documented the finalimplant positions. The patient left the procedure room in good and stable condition. Final programming was: AAIR<->DDDR 60-130 CONCLUSION: 1) Successful implantation of a dual chamber Medtronic pacemaker via theright axillary vein under moderate sedation. I was present during the intra-service time as documented by the sedationRN. 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 The patient's spouse Mara was updated immediately following theprocedure. Recommend no systemic anticoagulation x 72 hours minimum. Electronically signed by: Jay Urban MD, PhD, FACC Jay Urban MD EP PROCEDURE ORDERAB LES * POCT Glucose (01/31/2022 11:00 AM EDT) Glucose, POC 130 65 - 199 mg/dL [facility] Comment: Supplemental ranges: <140 mg/dL before meals <180 mg/dL all other times of the day Blood 01/31/2022 11:0 0 AM EDT 01/31/2022 11:00 AM EDT Misael Ellis MD POINT OF CARE TEST O RDERABLES [facility] [place] [address] * ECHO COMPLETE (01/31/2022 8:29 AM EDT) EF 46 HEARTLAB SYSTEM Anatomical Region Laterality Modality Cardiac Other 01/31/2022 7:24 AM EDT Narrative 01/31/2022 9:05 AM EDT ? Echocardiogram Report Name: ETHEL AKINS Patricia ?Study Date: 01/31/2022 07:24 AMBP: 118/95 mmHg ? [place] [facility] [place] [place] : 1950 ? Height: 180 cm ? Account: [id number] Age: 71 yrs ? Weight: 100 kg Gender: Male ?BSA: 2.2 m2 Ordering Physician: NIRU HARRISON Referring Physician: NICOLÁS REAGAN Performed By: Monster Abraham RDCS Reason For Study: Arrhythmia Exam Location: [facility]. Interpretation Summary Left ventricle is of normal [...] systolic function, the estimated PASP has increased. Procedure Complete-95851. Satisfactory quality. The rhythm is atrial fibrillation. Left Ventricle Left ventricle is of normal size. Wall thickness is moderately increased. There is no left ventricular outflow tract obstruction. There is no ventricular septal defect. Left ventricular systolic function is mildly reduced. The left ventricular ejection fraction is 46% by Elizabeth's biplane. Mild global hypokinesis. Right Ventricle The right ventricle is probably normal in size. Right ventricular systolic function is mildly decreased. Left Atrium The left atrium is severely dilated. No abnormality of the interatrial septum is identified. Right Atrium The right atrium is moderately dilated. Aortic Valve The aortic valve is tricuspid. The aortic valve is mildly calcified. There is mild aortic stenosis. The right coronary cusp does not have any opening mobility, the other cusps have normal mobility. The peak instantaneous gradient across the aortic valve is 16 mmHg. The mean gradient across the aortic valve is 8 mmHg. The stroke volume index is 25 mL/m2. The dimensionless index is .41. There is trace aortic regurgitation. Mitral Valve Mild thickening of the mitral leaflets. There is no mitral stenosis. There is mild mitral regurgitation. Tricuspid Valve The tricuspid valve is structurally normal. There is no tricuspid stenosis. There is mild tricuspid regurgitation. Pulmonic Valve The pulmonic valve appears to be structurally normal. There is no valvular pulmonic stenosis. There is no pulmonic valve regurgitation. Great Arteries The aortic root at the level of the sinuses of Valsalva is mildly dilated. The transverse aorta is not well visualized. The ascending aorta is mildly dilated. The main pulmonary artery is of normal size. Venous Inferior vena cava is normal in size. Inferior vena cava collapse less than 50% with respiration. Pericardium/Pleural There is a trivial pericardial effusion. Hemodynamics Left ventricular diastolic function is indeterminate. The estimated right atrial pressure is 8mmHg. The peak right ventricular systolic pressure is 40 mmHg. Ejection Fraction ?2D Measurements ? Volumes LV Biplane EF: 45.6 % ? IVSd: 1.5 cm ? LA Volume Index: ?LVIDd: 5.6 cm ?LVIDs: 4.5 cm ?52.7 ml/m2 ?LVPWd: 1.5 cm ?RA A4Cs_phl: 25.6 cm2 ? EDV Biplane: 140.0 ml ?LV mass(C)d: 372.0 grams ? EDV Biplane Index: 63.8 ?LV mass(C)dI: 169.5 grams/m2 ?? ESV Biplane: 76.1 ml ?Ao root diam: 3.7 cm ? ESV Biplane Index: 34.7 ?Ao root diam index: 1.7 ?SV(LVOT): 54.3 ml ?asc Aorta Diam: 3.9 cm ?LVOT diam: 2.0 cm ?LV Stroke Volume: 53.0 ml ? SI(LVOT): 24.8 ml/m2 Doppler TR max pop: 281.0 cm/sec RVSP(TR): 39.6 mmHg Ao V2 VTI: 42.5 cm Ao valve max: 16.1 mmHg Ao valve mean: 7.9 mmHg MV E max pop: 88.8 cm/sec SHANIA(I,D): 1.3 cm2 Dimensionless index Aov: 0.41 I ?WMSI = 2.00 ? % Normal = 0 ?Segments ??Size X - Cannot ?2 - ?4 - ?1-2 ? small Interpret ?1 - Normal ?? Hypokinetic 3 - Akinetic Dyskinetic ?? 3-5 ? moderate 5 - ? 6-14 ?large Aneurysmal ?15-16 ?? diffuse Procedure Note Naif Garibay MD - 01/31/2022 Echocardiogram Report Name: ETHEL AKINS Study Date: 207:24 AMBP: 118/95 mmHg Patient Location: [address] : 1950 Height: 180 cm Account: [id number] Age: 71 yrs Weight: 100 kg Gender: Male BSA: 2.2 m2 Ordering Physician: NIRU HARRISON Referring Physician: NICOLÁS REAGAN Performed By: Monster Abraham RDCS Reason For Study: Arrhythmia Exam Location: [facility]. Interpretation Summary Left ventricle is of normal size. Wall thickness is moderately increased.There is no left ventricular outflow tract obstruction. There is no ventricularseptal defect. Left ventricular systolic function is mildly reduced. The leftventricular ejection fraction is 46% by Elizabeth's biplane. Mild global hypokinesis. The right ventricle is probably normal in size. Right ventricularsystolic function is mildly decreased. The peak right ventricular systolic pressureis 40 mmHg. The estimated right atrial pressure is 8mmHg. The left atrium is severely dilated. The aortic valve is mildly calcified. There is mild aortic stenosis witha planimetric valve area of 2.2 cm2. The right coronary cusp does not haveany opening mobility, the other cusps have normal mobility. The peakinstantaneous gradient across the aortic valve is 16 mmHg. The mean gradient across theaortic valve is 8 mmHg. There is trace aortic regurgitation. The aortic root and ascending aorta are mildly dilated. There is a trivial pericardial effusion. Compared to 12/20/2020, the pt is now in atrial fibrillation, there ismildly reduced biventricular systolic function, the estimated PASP hasincreased. Procedure Complete-58800. Satisfactory quality. The rhythm is atrial fibrillation. Left Ventricle Left ventricle is of normal size. Wall thickness is moderately increased.There is no left ventricular outflow tract obstruction. There is no ventricularseptal defect. Left ventricular systolic function is mildly reduced. The leftventricular ejection fraction is 46% by Elizabeth's biplane. Mild global hypokinesis. Right Ventricle The right ventricle is probably normal in size. Right ventricularsystolic function is mildly decreased. Left Atrium The left atrium is severely dilated. No abnormality of the interatrialseptum is identified. Right Atrium The right atrium is moderately dilated. Aortic Valve The aortic valve is tricuspid. The aortic valve is mildly calcified. Thereis mild aortic stenosis. The right coronary cusp does not have any openingmobility, the other cusps have normal mobility. The peak instantaneous gradient acrossthe aortic valve is 16 mmHg. The mean gradient across the aortic valve is 8mmHg. The stroke volume index is 25 mL/m2. The dimensionless index is .41. There istrace aortic regurgitation. Mitral Valve Mild thickening of the mitral leaflets. There is no mitral stenosis. Thereis mild mitral regurgitation. Tricuspid Valve The tricuspid valve is structurally normal. There is no tricuspidstenosis. There is mild tricuspid regurgitation. Pulmonic Valve The pulmonic valve appears to be structurally normal. There is novalvular pulmonic stenosis. There is no pulmonic valve regurgitation. Great Arteries The aortic root at the level of the sinuses of Valsalva is mildly dilated.The transverse aorta is not well visualized. The ascending aorta is mildlydilated. The main pulmonary artery is of normal size. Venous Inferior vena cava is normal in size. Inferior vena cava collapse lessthan 50% with respiration. Pericardium/Pleural There is a trivial pericardial effusion. Hemodynamics Left ventricular diastolic function is indeterminate. The estimated rightatrial pressure is 8mmHg. The peak right ventricular systolic pressure is 40mmHg. Ejection Fraction 2D Measurements Volumes LV Biplane EF: 45.6 % IVSd: 1.5 cm LA VolumeIndex: LVIDd: 5.6 cm LVIDs: 4.5 cm 52.7 ml/m2 LVPWd: 1.5 cm RA A4Cs_phl: 25.6cm2 EDV Biplane:140.0 ml LV mass(C)d: 372.0 grams EDV BiplaneIndex: 63.8 LV mass(C)dI: 169.5 grams/m2 ESV Biplane: 76.1ml Ao root diam: 3.7 cm ESV BiplaneIndex: 34.7 Ao root diam index: 1.7 SV(LVOT): 54.3ml asc Aorta Diam: 3.9 cm LVOT diam: 2.0 cm LV Stroke Volume:53.0 ml SI(LVOT): 24.8ml/m2 Doppler TR max pop: 281.0 cm/sec RVSP(TR): 39.6 mmHg Ao V2 VTI: 42.5 cm Ao valve max: 16.1 mmHg Ao valve mean: 7.9 mmHg MV E max pop: 88.8 cm/sec SHANIA(I,D): 1.3 cm2 Dimensionless index Aov: 0.41 I WMSI = 2.00 % Normal = 0 SegmentsSize X - Cannot 2 - 4 - 1-2small Interpret 1 - Normal Hypokinetic 3 - Akinetic Dyskinetic 3-5moderate 5 - 6-14large Aneurysmal 15-16diffuse Niru Harrison MD ECHO ORDERABLES * Phosphorus (01/31/2022 8:16 AM EDT) Phosphorus 2.7 2.5 - 4.5 mg/dL [facility] Blood 01/31/2022 8:16 AM EDT 01/31/2022 8:38 AM EDT Narrative Resulting Agency Comment Spec In Lab Misael Ellis MD CHEMISTRY ORDERABLES Performing Organization Address City/[facility]/ZIP Co de Phone Number [facility] [place] [address] * Magnesium (01/31/2022 8:16 AM EDT) Pathologist [facility] Magnesium 0.82 0.69 - 1.07 mmol/L [facility] Blood 01/31/2022 8:16 AM EDT 01/31/2022 8:38 AM EDT Narrative Resulting Agency Comment Spec In Lab Misael Ellis MD CHEMISTRY ORDERABLES Performing Organization Address [facility] Co de Phone Number [facility] [place] [address] * (ABNORMAL) Basic Metabolic Panel (non-fasting) (01/31/2022 8:16 AM EDT) Pathologist [facility] Glucose 137 65 - 199 mg/dL [facility] Comment:Diabetes: >=200 mg/d L plus symptoms Blood Urea Nitrogen 22(H) 10 - 20 mg/dL [facility] Creatinine 1.58(H) 0.80 - 1.50 mg/dL [facility] Sodium 143 135 - 145 mmol/L [facility] Potassium 3.9 3.5 - 5.0 mmol/L [facility] Comment: Please note: ??Patients with WBC >100,000 may have falsely elevated Potassium levels. ??For accurate Potassium quantification in these patients send serum separator tube (gold top) for subsequent determinations. ??Contact the Clinical Chemistry Laboratory if there are any questions. Chloride 108(H) 98 - 107 mmol/L [facility] Carbon Dioxide 24 22 - 31 mmol/L [facility] Anion Gap 11 5 - 15 mmol/L [facility] Calcium 8.9 8.5 - 10.5 mg/dL [facility] Est Glomerular Filtration Rate 46(L) >=60 mL/min/1. 73 m?? [facility] Comment: This patient's estimated GFR was [...] and symptoms in addition to eGFR. Blood 01/31/2022 8:16 AM EDT 01/31/2022 8:38 AM EDT Narrative Resulting Agency Comment Spec In Lab Misael Ellis MD CHEMISTRY ORDERABLES Performing Organization Address [facility] Co de Phone Number [facility] [place] [address] * Tacrolimus level (01/31/2022 8:16 AM EDT) Pathologist [facility] Tacrolimus 8.0 ng/mL [facility] Comment: Trough therapeutic range is 3-15 ng/mL, depending upon transplant type, time since transplantation, use of other 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 drugs, comorbidities, and test method used. Tacrolimus concentration determined using the [employer] Tacrolimus electrochemiluminescence competitive immunoassay. Results from different samples types and methods are not interchangeable. Blood 01/31/2022 8:16 AM EDT 01/31/2022 8:38 AM EDT Narrative Resulting Agency Comment Spec In Lab Misael Ellis MD CHEMISTRY ORDERABLES Performing Organization Address [facility] Co de Phone Number [facility] [place] [address] * POCT Glucose (01/31/2022 8:07 AM EDT) Glucose, POC 137 65 - 199 mg/dL [facility] Comment: Supplemental ranges: <140 mg/dL before meals <180 mg/dL all other times of the day Blood 01/31/2022 8:07 AM EDT 01/31/2022 8:07 AM EDT Misael Ellis MD POINT OF CARE TEST O RDERABLES Performing Organization Address [facility] Co de Phone Number [facility] [place] [address] * (ABNORMAL) Urinalysis Microscopic Exam (01/31/2022 1:30 AM EDT) RBC, Urine 4(H) 0 - 3 /HPF [facility] WBC, Urine 1 0 - 3 /HPF [facility] Squamous Epithelial Cells Raw Data, Urine 1 <=4 /HPF [facility] Hyaline Casts, Urine 2 0 - 2 /LPF [facility] Clean Catch Urine 01/31/2022 1:30 AM EDT 01/31/2022 1:42 AM EDT Narrative Resulting Agency Comment Spec In Lab Les Garcia MD URINE ORDERABL ES Performing Organization Address [facility] de Phone Number [facility] [place] [address] * Sodium, urine, random (01/31/2022 1:30 AM EDT) Sodium, Urine <20 mmol/L [facility] Urine 01/31/2022 1:30 AM EDT 01/31/2022 1:41 AM EDT Narrative Resulting Agency Comment Spec In Lab Misael Ellis MD URINE ORDERABLES Performing Organization Address [facility] Co de Phone Number [facility] [place] [address] * Creatinine, urine, random (01/31/2022 1:30 AM EDT) Creatinine, Urine 173 mg/dL [facility] Urine 01/31/2022 1:30 AM EDT 01/31/2022 1:41 AM EDT Narrative Resulting Agency Comment Spec In Lab Misael Ellis MD URINE ORDERABLES Performing Organization Address [facility]/ZIP Co de Phone Number [facility] [place] [address] * (ABNORMAL) Urinalysis with reflex Culture (01/31/2022 1:30 AM EDT) Glucose, Urine Dipstick Negative Negative mg/dL [facility] Protein, Urine Dipstick 100(A) Negative mg/dL [facility] Bilirubin, Urine Dipstick Negative Negative mg/dL [facility] Comment: Clinical correlation required for positive Urine Bilirubin results as false positive may occur with some drugs and drug related products. If a false positive is suspected a serum total bilirubin should be considered if clinically indicated. Urobilinogen, Urine Dipstick Normal Normal mg/dL [facility] pH, Urn (dipstick) 5.5 5.0 - 8.0 [facility] Blood, Urine Dipstick Negative Negative mg/dL [facility] Ketone, Urine Dipstick Trace(A) Negative mg/dL [facility] Nitrite, Urine Dipstick Negative Negative [facility] Leukocytes, Urine Dipstick Negative Negative [facility] Appearance, Urine Dipstick Clear Clear [facility] Specific [place] Urine Automated 1.021 1.005 - 1.030 [facility] Color, Urine Dipstick Yellow Yellow [facility] Reflex to Culture No [facility] Clean Catch Urine 01/31/2022 1:30 AM EDT 01/31/2022 1:42 AM EDT Narrative Resulting Agency Comment Spec In Lab Misael Ellis MD URINE ORDERABLES Performing Organization Address City/[facility]/ZIP Co de Phone Number [facility] [place] [address] * POCT Glucose (01/31/2022 12:06 AM EDT) Glucose, POC 116 65 - 199 mg/dL [facility] Comment: Supplemental ranges: <140 mg/dL before meals <180 mg/dL all other times of the day Blood 01/31/2022 12:0 6 AM EDT 01/31/2022 12:06 AM EDT Misael Ellis MD POINT OF CARE TEST O RDERABLES [facility] [place] [address] * (ABNORMAL) Hemoglobin A1c (01/30/2022 9:45 PM EDT) [facility] Hemoglobin A1c 6.7(H) 4.3 - 5.6 % [facility] Comment: Reference Range: 4.3 - 5.6% [...] Mellitus, Diabetes Care 2013; 36: Suppl. 1, S37-41 Estimated Average Glucose See note mg/dL [facility] Comment: Estimated Average Glucose not appropriate [...] into estimated average glucose values. ??Diabetes Care 2008:31(8):4853-2833. Blood Venous Draw / Unknown 01/30/2022 9:45 PM EDT 01/30/2022 11:41 PM EDT Narrative Resulting Agency Comment Spec In Lab Les Garcia MD CHEMISTRY ROCHELLE JENNINGS [facility] [place] [address] * (ABNORMAL) Differential, Automated (01/30/2022 9:45 PM EDT) Neutrophil % 63.5 % [facility] Neutrophil Absolute 5.52 1.70 - 6.10 x10(3)/mc L [facility] Lymph % 24.1 % [facility] Lymphocytes Abs 2.1 0.9 - 3.2 x10(3)/mc L [facility] Monocyte % 6.0 % [facility] Monocyte Abs 0.5 0.3 - 0.9 x10(3)/mc L [facility] Eos % 5.4 % [facility] Eosinophils Abs 0.5(H) 0.0 - 0.4 x10(3)/mc L [facility] Basophil % 0.8 % [facility] Baso Absolute 0.1 0.0 - 0.1 x10(3)/mc L [facility] Immature Gran % 0.20 % [facility] Comment: Immature granulocytes(IG's)percentage and absolute count will include metamyelocytes, myelocytes, and promyelocytes. Blood smears from CBCs yielding IG's will be scanned manually for concordance. If this scan disagrees with the automated IG or if promyelocytes are noted, a manual differential will be performed. Immature Gran Absolute 0.02 0.00 - 0.04 x10(3)/mc L [facility] Blood 01/30/2022 9:45 PM EDT 01/30/2022 9:45 PM EDT Narrative Resulting Agency Comment Spec In Lab Les Garcia MD HEMATOLOGY ORD ERABLES [facility] [place] [address] * Hemogram (01/30/2022 9:45 PM EDT) White Blood Cell 8.7 4.0 - 9.5 x10(3)/[facility] Red Blood Cell 4.62 4.58 - 5.54 x10(6)/[facility] Hemoglobin 14.3 13.7 - 16.5 g/dL [facility] Hematocrit 41.7 40.5 - 48.5 % [facility] Mean Cell Volume 90.3 82.9 - 93.1 fL [facility] Mean Cell Hemoglobin 31.0 27.5 - 32.1 pg [facility] Mean Cell Hemoglobin Concentration 34.3 32.0 - 35.7 g/dL [facility] Platelet 219 145 - 357 x10(3)/[facility] RDW Standard Deviation 42.4 36.0 - 45.0 [facility] RDW coefficient of variation 13.0 11.4 - 13.8 % [facility] Mean Platelet Volume 9.8 7.6 - 12.9 fL [facility] NRBC% auto 0.0 % [facility] NRBC Absolute 0.000 0.000 - 0.000 x10(3)/[facility] Blood 01/30/2022 9:45 PM EDT 01/30/2022 9:45 PM EDT Narrative Resulting Agency Comment Spec In Lab Les Garcia MD HEMATOLOGY ORD ERABLES [facility] [place] [address] * Lipid Panel (Reflex Direct LDL) (01/30/2022 9:45 PM EDT) Cholesterol, Total 65 mg/dL [facility] Comment: Lower Risk: <200 mg/dL Average Risk: 200-239 mg/dL Higher Risk: >kt=250 mg/dL Triglyceride 124 mg/dL [facility] Comment: Average Risk/Lower Risk: <150 mg/dL Borderline High Risk: 150-199 mg/dL High Risk: 200-499 mg/dL Very High Risk: >fh=660 mg/dL HDL Cholesterol 33 mg/dL [facility] Comment: Males: ?? Higher Risk: <40 mg/dL Females: ?? Higher Risk: <50 mg/dL LDL Cholesterol 7 mg/dL [facility] Comment: Lowest Risk: <100 mg/dL Lower Risk: 100-129 mg/dL Borderline High Risk: 130-159 mg/dL High Risk: 160-189 mg/dL Very High Risk: >yr=430 mg/dL Cholesterol/HDL Ratio 2.0 ratio [facility] Lipid Interpretation See Note [facility] Comment: Lipid management should be guided by a patient? s ASCVD risk, goals and preferences. ACC/AHA Guidelines recommend high intensity statin if clinical ASCVD or LDL greater than or equal to 190 mg/dL. http://tinyurl.com/SPO-YZT-Zgyjdwxde Adults aged 40-75 with LDL 70-189 mg/dL should have their 10 year ASCVD risk estimated with the ACC/AHA ASCVD risk summer child caregiver http://tools.acc.org/ZEZDH-Qbja-Atxcehfzf/ Statin should be discussed if risk greater [...] critical component of ASCVD risk reduction. Blood 01/30/2022 9:45 PM EDT 01/30/2022 9:45 PM EDT Narrative Resulting Agency Comment Spec In Lab Niru Harrison MD CHEMISTRY ORDERABLES Performing Organization Address [facility] Co de Phone Number [facility] [place] [address] * (ABNORMAL) APTT (01/30/2022 9:45 PM EDT) Partial Thromboplastin Time 20(L) 25 - 37 sec [facility] Comment: Decreased clotting times may be caused by improper phlebotomy technique. The PTT is NOT appropriate for heparin monitoring. Use the Anti-Xa level for heparin monitoring (HEP UFH) or LMWH monitoring (HEP LMW). A PTT less than 37 seconds generally indicates adequate hemostasis. Blood 01/30/2022 9:45 PM EDT 01/30/2022 9:45 PM EDT Narrative Resulting Agency Comment Spec In Lab Niru Harrison MD HEMATOLOGY ORDERABLE S Performing Organization Address [facility] Co de Phone Number [facility] [place] [address] * (ABNORMAL) Prothrombin Time (01/30/2022 9:45 PM EDT) Prothrombin Time 12.9(H) 9.4 - 12.5 sec [facility] International Normalization Ratio 1.1 [facility] Comment: An INR <2.0 indicates adequate procoagulant activity for hemostasis in most patients without underlying bleeding disorders, though the INR may not adequately reflect hemostatic capacity in patients with liver disease and synthetic impairment. The recommended target INR range for therapeutic anticoagulation is 2.0 ? 3.0 for most applications, though lower and higher ranges may be appropriate depending on clinical circumstances. Blood 01/30/2022 9:45 PM EDT 01/30/2022 9:45 PM EDT Narrative Resulting Agency Comment Spec In Lab Niru Harrison MD HEMATOLOGY ORDERABLE S Performing Organization Address [facility] Co de Phone Number [facility] [place] [address] * (ABNORMAL) Hepatic Function Panel (01/30/2022 9:45 PM EDT) [facility] Protein, Total 6.2 6.1 - 8.0 g/dL [facility] Albumin 3.8 3.2 - 5.2 g/dL [facility] Aspartate Aminotransferase 17 0 - 39 unit/L [facility] Alanine Aminotransferase 19 0 - 55 unit/L [facility] Alkaline Phosphatase 61 40 - 130 unit/L [facility] Bilirubin, Total 2.4(H) 0.2 - 1.3 mg/dL [facility] Bilirubin, Direct 0.2 0.0 - 0.3 mg/dL [facility] Blood 01/30/2022 9:45 PM EDT 01/30/2022 9:45 PM EDT Narrative Resulting Agency Comment Spec In Lab Niru Harrison MD CHEMISTRY ORDERABLES Performing Organization Address [facility] Co de Phone Number [facility] [place] [address] * (ABNORMAL) pro-Brain Natriuretic Peptide (01/30/2022 9:45 PM EDT) [facility] NT-proBNP 4,113(H) <=124 pg/mL [facility] Blood 01/30/2022 9:45 PM EDT 01/30/2022 9:45 PM EDT Narrative Resulting Agency Comment Spec In Lab Niru Harrison MD CHEMISTRY ORDERABLES Performing Organization Address [facility] Co de Phone Number [facility] [place] [address] * TSH (01/30/2022 9:45 PM EDT) Thyroid Stimulating Hormone 3.44 0.27 - 4.20 mcIU/mL [facility] Comment: Reference Interval (mcIU/mL): Females: ??First Trimester: 0.23-3.88 ??Second Trimester: 0.22-3.90 ??Third Trimester: 0.44-4.66 Blood 01/30/2022 9:45 PM EDT 01/30/2022 9:45 PM EDT Narrative Resulting Agency Comment Spec In Lab Niru Harrison MD CHEMISTRY ORDERABLES Performing Organization Address [facility] de Phone Number [facility] [place] [address] * Phosphorus (01/30/2022 9:45 PM EDT) Phosphorus 3.3 2.5 - 4.5 mg/dL [facility] Blood 01/30/2022 9:45 PM EDT 01/30/2022 9:45 PM EDT Narrative Resulting Agency Comment Spec In Lab Niru Harrison MD CHEMISTRY ORDERABLES Performing Organization Address [facility] Co de Phone Number [facility] [place] [address] * (ABNORMAL) Magnesium (01/30/2022 9:45 PM EDT) Magnesium 0.68(L) 0.69 - 1.07 mmol/L [facility] Blood 01/30/2022 9:45 PM EDT 01/30/2022 9:45 PM EDT Narrative Resulting Agency Comment Spec In Lab Niru Harrison MD CHEMISTRY ORDERABLES [facility] [place] [address] * (ABNORMAL) Basic Metabolic Panel (non-fasting) (01/30/2022 9:45 PM EDT) Glucose 177 65 - 199 mg/dL [facility] Comment:Diabetes: >=200 mg/d L plus symptoms Blood Urea Nitrogen 23(H) 10 - 20 mg/dL [facility] Creatinine 1.87(H) 0.80 - 1.50 mg/dL [facility] Sodium 144 135 - 145 mmol/L [facility] Potassium 3.6 3.5 - 5.0 mmol/L [facility] Comment: Please note: ??Patients with WBC >100,000 may have falsely elevated Potassium levels. ??For accurate Potassium quantification in these patients send serum separator tube (gold top) for subsequent determinations. ??Contact the Clinical Chemistry Laboratory if there are any questions. Chloride 106 98 - 107 mmol/L [facility] Carbon Dioxide 23 22 - 31 mmol/L [facility] Anion Gap 15 5 - 15 mmol/L [facility] Calcium 9.0 8.5 - 10.5 mg/dL [facility] Est Glomerular Filtration Rate 37(L) >=60 mL/min/1. 73 m?? [facility] Comment: This patient's estimated GFR was [...] and symptoms in addition to eGFR. Blood 01/30/2022 9:45 PM EDT 01/30/2022 9:45 PM EDT Narrative Resulting Agency Comment Spec In Lab Niru Harrison MD CHEMISTRY ORDERABLES [facility] [place] [address] * EKG 12 Lead (01/30/2022 7:53 PM EDT) Ventricular rate 95 BPM MUSE SYSTEM Atrial Rate 277 BPM MUSE SYSTEM QRS Duration 108 ms MUSE SYSTEM Q-T Interval 398 ms MUSE SYSTEM QTC Calculated (Bezet) 500 ms MUSE SYSTEM Calculated R [place] -58 degrees MUSE SYSTEM Calculated T [place] 72 degrees MUSE SYSTEM INTERPRETATION Atrial flutter with variable A-V block with premature ventricular or aberrantly conducted complexes Left anterior fascicular block Minimal voltage criteria for LVH, may be normal variant ( Barrett product ) Prolonged QTc Abnormal ECG When compared with ECG of 14-MAR-2021 15:13, Atrial flutter has replaced Sinus rhythm Vent. rate has increased BY ??35 BPM qtc has lengthened Confirmed by MD Kelly Danette ([id number]) on 01/31/2022 4:01:28 PM MUSE SYSTEM 01/30/2022 7:53 PM EDT 01/31/2022 4:01 PM EDT Niru Harrison MD ECG ORDERABLES MUSE SYSTEM documented in this encounter Visit Diagnoses Not on filedocumented in this encounter Admitting Diagnoses Diagnosis Tachy-roman syndrome Sinoatrial node dysfunction documented in this encounter Administered Medications Inactive Administered Medications - up to 3 most recent administrations Medication Order MAR Action Action Date Dose Rate Site acetaminophen (Tylenol) tablet 650 mg 650 mg, Oral, EVERY 4 HOURS PRN, Starting on 01/31/22 at 1416, Until 02/01/22 at 1812, Pain, Fever, Mild to moderate pain, Administer for mild to moderate pain. Maximum dose of acetaminophen is 4000 mg from all sources in 24 hours. When ordered for pain, acetaminophen should be given even when other ordered pain medications are indicated., Recovery (Recovery-Hospital Unit), Routine Given 02/01/2022 1:16 PM EDT 650 mg Given 02/01/2022 5:56 AM EDT 650 mg Given 01/31/2022 11:49 PM EDT 650 mg amLODIPine (Norvasc) tablet 5 mg 5 mg, Oral, DAILY, First dose on Thu01/31/22 at 0900, Until Discontinued, Routine Given 02/01/2022 8:36 AM EDT 5 mg Given 01/31/2022 8:41 AM EDT 5 mg aspirin EC tablet 81 mg 81 mg, Oral, DAILY, First dose (after last modification) on Thu01/30/22 at 2045, Until Discontinued, Routine Given 02/01/2022 8:36 AM EDT 81 mg Given 01/31/2022 8:41 AM EDT 81 mg Given 01/30/2022 9:05 PM EDT 81 mg atorvastatin (Lipitor) tablet 40 mg 40 mg, Oral, EVERY EVENING, First dose on Thu01/30/22 at 2030, Until Discontinued, Routine Given 01/31/2022 5:02 PM EDT 40 mg Given 01/30/2022 8:59 PM EDT 40 mg calciTRIoL (Rocaltrol) capsule 0.5 mcg 0.5 mcg, Oral, DAILY, First dose on Thu01/31/22 at 0900, Until Discontinued, Routine Given 02/01/2022 8:35 AM EDT 0.5 mcg Given 01/31/2022 8:41 AM EDT 0.5 mcg dextrose 10% infusion 250 mL, at 1,000 mL/hr, Intravenous, EVERY 30 MIN PRN, Starting on Thu01/30/22 at 2317, Until 02/01/22 at 1812, For BG 50-70 mg/dL: Oral treatment preferred: [...] for the duration of the active insulin. fentaNYL (PF) (50 mcg/mL) injection 25-50 mcg 25-50 mcg, Intravenous, EVERY 5 MIN PRN, Starting on Thu01/31/22 at 1044, Until Thu01/31/22 at 1416, Pain, As needed to induce or maintain moderate sedation per [facility] Moderate Sedation Policy for the duration of the EP procedure., As needed to induce or maintain moderate sedation per [facility] Moderate Sedation Policy for the duration of the EP procedure. For use in the electrophysiology lab (EP lab) only for procedural sedation with direct provider supervision and verbal order. RASS goal (-)2 to (-)3. Start at 25 mcg, Dose not to exceed 50 mcg/dose, 250 mcg/hr, or 20 mcg/kg per case. , EP (Intra-Procedure), Routine Given 01/31/2022 12:41 PM EDT 25 mcg Given 01/31/2022 12:22 PM EDT 12.5 mcg Given 01/31/2022 12:16 PM EDT 12.5 mcg glucagon (Glucagen) (1 mg/mL) injection solution 1 mg 1 mg, Intramuscular, EVERY 30 MIN PRN, Starting on Laura 01/30/22 at 2317, Until 02/01/22 at 1812, Low blood sugar, For BG 50-70 mg/dL: [...] Buccal, EVERY 30 MIN PRN, Starting on Laura 01/30/22 at 2317, Until 02/01/22 at 1812, Low blood sugar, For BG 50-70 mg/dL: [...] weight of tube = 37.5 grams.), Routine hydrALAZINE (Apresoline) tablet 100 mg 100 mg, Oral, 2 TIMES DAILY, First dose on Laura 01/30/22 at 2100, Until Discontinued, Routine Given 02/01/2022 8:35 AM EDT 100 mg Given 01/31/2022 8:54 PM EDT 100 mg Given 01/31/2022 8:40 AM EDT 100 mg insulin glargine-ygfn (Semglee) (100 unit/mL) subcutaneous injection vial 10 Units 10 Units, Subcutaneous, NIGHTLY, First dose on Thu01/31/22 at 0015, Until Discontinued, Routine Given 01/31/2022 8:55 PM EDT 10 Units Given 01/31/2022 12:08 AM EDT 10 Units insulin lispro (HumaLOG;Admelog) (100 unit/mL) subcutaneous injection vial 0-8 Units 0-8 Units, Subcutaneous, 3 TIMES DAILY WITH MEALS, First dose on Thu01/31/22 at 0800, Until Discontinued, ME[employer] Give 1 unit for every 10 grams carbohydrate. Hold if not eating or if BG less than 70 mg/dL., Routine Given 02/01/2022 10:19 AM EDT 8 Units Given 01/31/2022 5:42 PM EDT 5 Units Given 01/31/2022 4:18 PM EDT 6 Units insulin lispro (HumaLOG;Admelog) (100 unit/mL) subcutaneous injection vial 1-6 Units 1-6 Units, Subcutaneous, 4 TIMES DAILY BEFORE MEALS & NIGHTLY, First dose on Thu01/31/22 at 0015, Until Discontinued, CORRECTION BOLUS [1-6 Units] Moderate Sliding Scale (BG in mg/dL): Correction factor 20 (1 unit of insulin is expected to drop the glucose 20 mg/dL) BG 140 - 160 Give 1 unit BG 161 - 180 Give 2 units BG 181 - 200 Give 3 units BG 201 - 220 Give 4 units BG 221 - 240 Give 5 units BG greater than 240, give 6 units and recheck BG in 2 hours. - If recheck BG is LESS than 240, give no insulin and resume schedule. - If recheck BG is GREATER than 240, give 6 units and repeat BG in 2 hours (no more than 3 times) & call for new insulin orders. DO NOT hold if NPO, unless specifically directed to do so by written order. Per Blood Glucose Monitoring Policy, re-check a BG of > 240 mg/dL in 2 hours., Routine Given 02/01/2022 11:32 AM EDT 6 Units iohexoL (Omnipaque) (350 mg/mL) solution 5-100 mL 5-100 mL, Intravenous, EVERY 5 MIN PRN, Starting on Thu01/31/22 at 1044, Until Thu01/31/22 at 1416, Per Protocol, Venogram, For use in the electrophysiology lab (EP lab) only for procedural sedation with direct provider supervision and verbal order., EP (Intra-Procedure), Routine Given 01/31/2022 12:29 PM EDT 10 mL s levothyroxine (Synthroid) tablet 137 mcg 137 mcg, Oral, DAILY, First dose on Thu01/31/22 at 0600, Until Discontinued, Routine Given 02/01/2022 5:57 AM EDT 137 mcg Given 01/31/2022 5:03 AM EDT 137 mcg magnesium sulfate 2 g in sterile water 50 mL infusion 2 g, Intravenous, EVERY 2 HOURS PRN, Starting on Thu01/31/22 at 0704, Until 02/01/22 at 1812, Administer over 120 Minutes, Hypomagnesemia, Administer one 2 g IV bag, over 120 minutes for serum magnesium of 0.65 - 0.79 mMol/L. magnesium sulfate 2 g in sterile water 50 mL infusion 2 g, Intravenous, EVERY 2 HOURS PRN, Starting on Thu01/31/22 at 0704, Until 02/01/22 at 1812, Administer over 120 Minutes, Hypomagnesemia, Administer two 2 g IV bag, each over 120 minutes for serum magnesium of 0.5 - 0.64 mMol/L. metoprolol tartrate (Lopressor) tablet 12.5 mg 12.5 mg, Oral, EVERY 6 HOURS SCHEDULED, First dose on Thu01/31/22 at 1800, Until Discontinued, Hold for SBP <90, Routine Given 02/01/2022 11:32 AM EDT 12. 5 mg Given 02/01/2022 5:57 AM EDT 12.5 mg Given 01/31/2022 11:49 PM EDT 12.5 mg midazolam (pf) (Versed) (1 mg/mL) injection 0.5-1 mg 0.5-1 mg, Intravenous, EVERY 5 MIN PRN, Starting on Thu01/31/22 at 1044, Until Thu01/31/22 at 1416, Anxiety, As needed to induce or maintain moderate sedation per [facility] Moderate Sedation Policy for the duration of the EP procedure., As needed to induce or maintain moderate sedation per [facility] Moderate Sedation Policy for the duration of the EP procedure. For use in the electrophysiology lab (EP lab) only for procedural sedation with direct provider supervision and verbal order. RASS goal (-)2 to (-)3. Dose not to exceed 1 mg per dose, 5 mg/hour, or 0.2 mg/kg per case., EP (Intra-Procedure), Routine Given 01/31/2022 12:41 PM EDT 0.5 mg Given 01/31/2022 12:22 PM EDT 0.5 mg Given 01/31/2022 12:04 PM EDT 1 mg mycophenolate (Cellcept) capsule 250 mg 250 mg, Oral, 2 TIMES DAILY, First dose on Thu01/30/22 at 2100, Until Discontinued, DO NOT CRUSH OR OPEN, Routine Given 02/01/2022 8:36 AM EDT 250 mg Given 01/31/2022 8:53 PM EDT 250 mg Given 01/31/2022 8:41 AM EDT 250 mg sodium chloride 0.9 % (flush) (BD PosiFlush Normal Saline 0.9) flush 5 mL 5 mL, Intravenous, 2 TIMES DAILY, First dose on Thu01/30/22 at 2100, Until Discontinued, Routine Given 02/01/2022 8:41 AM EDT 5 mLs Given 01/31/2022 8:55 PM EDT 5 mLs Given 01/31/2022 8:42 AM EDT 5 mLs sodium chloride 0.9 % (flush) (BD PosiFlush Normal Saline 0.9) flush 5 mL 5 mL, Intravenous, 2 TIMES DAILY, First dose on Thu01/31/22 at 2100, Until Discontinued, Recovery (Recovery-Hospital Unit), Routine Given 02/01/2022 8:40 AM EDT 5 mLs tacrolimus (Prograf) capsule 1 mg 1 mg, Oral, NIGHTLY, First dose on Thu01/30/22 at 2100, Until Discontinued, DO NOT SPLIT, CRUSH OR OPEN, Routine Given 01/31/2022 8:53 PM EDT 1 mg Given 01/30/2022 8:59 PM EDT 1 mg tacrolimus (Prograf) capsule 2 mg 2 mg, Oral, DAILY, First dose on Thu01/31/22 at 0900, Until Discontinued, DO NOT SPLIT, CRUSH OR OPEN, Routine Given 02/01/2022 8:36 AM EDT 2 mg Given 01/31/2022 8:40 AM EDT 2 mg tamsulosin (Flomax) capsule 0.4 mg 0.4 mg, Oral, DAILY, First dose on Thu01/31/22 at 0900, Until Discontinued, DO NOT CRUSH OR OPEN, Routine Given 02/01/2022 8:36 AM EDT 0.4 mg Given 01/31/2022 8:41 AM EDT 0.4 mg documented in this encounter Active and Recently Administered Medications Times are shown in EDT. Scheduled Medication Order 01/30/2022 01/31/2022 02/01/2022 amLODIPine (Norvasc) tablet 5 mg 5 mg, Oral, DAILY, First dose on Thu01/31/22 at 0900, Until Discontinued, Routine 0841 (Given - Provider: Roseanna Moss RN)1117 ([facility] Hold - Provider: Admin Adt - Reason: Transfer to a Procedural area)1403 ([facility] Unhold - Provider: Admin Adt) 0836 (Given - Provider: Richard Lobo, JADEN) aspirin EC tablet 81 mg 81 mg, Oral, DAILY, First dose (after last modification) on Laura 01/30/22 at 2045, Until Discontinued, Routine 2104 (Given - Provider: Carmela Alicia RN) 0841 (Given - Provider: Roseanna Moss RN)1117 ([facility] Hold - Provider: Admin Adt - Reason: Transfer to a Procedural area)1403 ([facility] Unhold - Provider: Admin Adt) 0836 (Given - Provider: Richard Lobo, JADEN) atorvastatin (Lipitor) tablet 40 mg 40 mg, Oral, EVERY EVENING, First dose on Thu01/30/22 at 2030, Until Discontinued, Routine 2058 (Given - Provider: Carmela Alicia RN) 1117 ([facility] Hold - Provider: Admin Adt - Reason: Transfer to a Procedural area)1403 ([facility] Unhold - Provider: Admin Adt)1702 (Given - Provider: Roseanna Moss RN) BUpivacaine (pf) (Marcaine) (5 mg/mL) 0.5% injection 150 mg (COMPLETED) 150 mg (30 mL), Subcutaneous, ONCE, 1 dose, On Thu01/31/22 at 1130, EP (Intra-Procedure), Routine 1207 (Given - Provider: Steffen Mora RN) calciTRIoL (Rocaltrol) capsule 0.5 mcg 0.5 mcg, Oral, DAILY, First dose on Thu01/31/22 at 0900, Until Discontinued, Routine 0841 (Given - Provider: Roseanna Moss RN)1117 ([facility] Hold - Provider: Admin Adt - Reason: Transfer to a Procedural area)1403 ([facility] Unhold - Provider: Admin Adt) 0835 (Given - Provider: Richard Lobo, JADEN) ceFAZolin (Ancef) 2 g in dextrose 5% 100 mL infusion (COMPLETED) 2 g, Intravenous, ONCE, 1 dose, On Thu01/31/22 at 1130, Administer over 30 Minutes, For use in the electrophysiology lab (EP lab) only for procedural sedation with direct provider supervision and verbal order., EP (Intra-Procedure), Indication for (Active or Suspected): Prophylaxis 1140 (New Bag - Provider: Steffen Mora, RN)1210 (Stopped - Provider: Steffen Mora, RN) hydrALAZINE (Apresoline) tablet 100 mg 100 mg, Oral, 2 TIMES DAILY, First dose on Thu01/30/22 at 2100, Until Discontinued, Routine 2057 (Given - Provider: Carmela Alicia RN) 0840 (Given - Provider: Roseanna Moss RN)1117 ([facility] Hold - Provider: Admin Adt - Reason: Transfer to a Procedural area)1403 ([facility] Unhold - Provider: Admin Adt)2053 (Given - Provider: Sreedhar Arambula RN) 0835 (Given - Provider: Richard Lobo, JADEN) insulin glargine-ygfn (Semglee) (100 unit/mL) subcutaneous injection vial 10 Units 10 Units, Subcutaneous, NIGHTLY, First dose on Thu01/31/22 at 0015, Until Discontinued, Routine 0008 (Given - Provider: Carmela Alicia RN)1117 ([facility] Hold - Provider: Admin Adt - Reason: Transfer to a Procedural area)1403 ([facility] Unhold - Provider: Admin Adt)2054 (Given - Provider: Sreedhar Arambula, JADEN) insulin lispro (HumaLOG;Admelog) (100 unit/mL) subcutaneous injection vial 0-8 Units 0-8 Units, Subcutaneous, 3 TIMES DAILY WITH MEALS, First dose on Thu01/31/22 at 0800, Until Discontinued, [employer] Give 1 unit for every 10 grams carbohydrate. Hold if not eating or if BG less than 70 mg/dL., Routine 0800 (Not Given - Provider: Roseanna Moss RN - Reason: NPO)1117 ([facility] Hold - Provider: Admin Adt - Reason: Transfer to a Procedural area)1200 (Not Given - Provider: Roseanna Moss RN - Reason: NPO)1403 ([facility] Unhold - Provider: Admin Adt)1618 (Given - Provider: Roseanna Moss RN)1742 (Given - Provider: Roseanna Moss RN) 1019 (Given - Provider: Richard Lobo RN - Comment: patient just finished breakfast)1200 (Not Given - Provider: Richard Lobo RN - Reason: Patient/family refused) insulin lispro (HumaLOG;Admelog) (100 unit/mL) subcutaneous injection vial 1-6 Units(Linked Group 1) 1-6 Units, Subcutaneous, 4 TIMES DAILY BEFORE MEALS & NIGHTLY, First dose on Thu01/31/22 at 0015, Until Discontinued, CORRECTION BOLUS [1-6 Units] Moderate Sliding Scale (BG in mg/dL): Correction factor 20 (1 unit of insulin is expected to drop the glucose 20 mg/dL) BG 140 - 160 Give 1 unit BG 161 - 180 Give 2 units BG 181 - 200 Give 3 units BG 201 - 220 Give 4 units BG 221 - 240 Give 5 units BG greater than 240, give 6 units and recheck BG in 2 hours. - If recheck BG is LESS than 240, give no insulin and resume schedule. - If recheck BG is GREATER than 240, give 6 units and repeat BG in 2 hours (no more than 3 times) & call for new insulin orders. DO NOT hold if NPO, unless specifically directed to do so by written order. Per Blood Glucose Monitoring Policy, re-check a BG of > 240 mg/dL in 2 hours., Routine 0015 (Not Given - Provider: Carmela Alicia RN - Reason: Order parameters not met)0730 (Not Given - Provider: Roseanna Moss RN - Reason: Order parameters not met)1117 ([facility] Hold - Provider: Admin Adt - Reason: Transfer to a Procedural area)1130 (Not Given - Provider: Roseanna Moss RN - Reason: Order parameters not met)1403 ([facility] Unhold - Provider: Admin Adt)1630 (Hold - Provider: Roseanna Moss RN - Reason: See comment - Comment: too close to previous administration)2100 (Not Given - Provider: Sreedhar Arambula RN - Reason: Order parameters not met) 0730 (Not Given - Provider: Shannan Carey RN - Reason: Order parameters not met)1132 (Given - Provider: Richard Lobo, JADEN) levothyroxine (Synthroid) tablet 137 mcg 137 mcg, Oral, DAILY, First dose on Thu01/31/22 at 0600, Until Discontinued, Routine 0503 (Given - Provider: Carmela Alicia, JADEN)1117 ([facility] Hold - Provider: Admin Adt - Reason: Transfer to a Procedural area)1403 ([facility] Unhold - Provider: Admin Adt) 0557 (Given - Provider: Sreedhar Arambula RN) lidocaine (Xylocaine) (20 mg/mL) 2% injection 400 mg (COMPLETED) 400 mg (20 mL), Subcutaneous, ONCE, 1 dose, On Thu01/31/22 at 1130, EP (Intra-Procedure), Routine 1207 (Given - Provider: Steffen Mora RN) magnesium sulfate 2 g in sterile water 50 mL infusion (COMPLETED) 2 g, Intravenous, ONCE, 1 dose, On Thu01/31/22 at 0000, Administer over 120 Minutes 0005 (New Bag - Provider: Carmela Alicia, JADEN)0205 (Stopped - Provider: Carmela Alicia, RN) metoprolol (LOPRESSOR) injection 5 mg 5 mg, Intravenous, ONCE, 1 dose, On Thu01/31/22 at 1645 1645 (Hold - Provider: Roseanna Moss RN - Reason: See comment - Comment: given prior at 15.45) metoprolol tartrate (Lopressor) tablet 12.5 mg 12.5 mg, Oral, EVERY 6 HOURS SCHEDULED, First dose on Thu01/31/22 at 1800, Until Discontinued, Hold for SBP <90, Routine 1748 (Given - Provider: Roseanna Moss, JADEN)2349 (Given - Provider: Sreedhar Arambula, JADEN) 0557 (Given - Provider: Sreedhar Arambula RN)1132 (Given - Provider: Richard Lobo, JADEN) mycophenolate (Cellcept) capsule 250 mg 250 mg, Oral, 2 TIMES DAILY, First dose on Thu01/30/22 at 2100, Until Discontinued, DO NOT CRUSH OR OPEN, Routine 2057 (Given - Provider: Carmela Alicia RN) 0841 (Given - Provider: Roseanna Moss, JADEN)1117 ([facility] Hold - Provider: Admin Adt - Reason: Transfer to a Procedural area)140 ([facility] Unhold - Provider: Admin Adt)2052 (Given - Provider: Sreedhar Arambula, JADEN) 0836 (Given - Provider: Richard Lobo, JADEN) potassium chloride ER (K-Dur/Klor-Con) tablet 40 mEq (COMPLETED) 40 mEq, Oral, EVERY 4 HOURS, 2 doses, First dose on Thu01/31/22 at 0000, Last dose on Thu01/31/22 at 0400, 20 mEq tablet may be dissolved in water for administration, Routine 5 (Given - Provider: Carmela Alicia RN)050 (Given - Provider: Carmela Alicia RN) sodium chloride 0.9 % (flush) (BD PosiFlush Normal Saline 0.9) flush 5 mL 5 mL, Intravenous, 2 TIMES DAILY, First dose on Thu01/30/22 at 2100, Until Discontinued, Routine 2058 (Given - Provider: Carmela Alicia RN) 0842 (Given - Provider: Roseanna Moss, JADEN)111 ([facility] Hold - Provider: Admin Adt - Reason: Transfer to a Procedural area)140 ([facility] Unhold - Provider: Admin Adt)2054 (Given - Provider: Sreedahr Arambula RN) 0841 (Given - Provider: Richard Lobo, JADEN) sodium chloride 0.9 % (flush) (BD PosiFlush Normal Saline 0.9) flush 5 mL 5 mL, Intravenous, 2 TIMES DAILY, First dose on Thu01/31/22 at 2100, Until Discontinued, Recovery (Recovery-Hospital Unit), Routine 2099 (Not Given - Provider: Sreedhar Arambula RN - Reason: Order parameters not met) 0840 (Given - Provider: Richard Lobo, JADEN) tacrolimus (Prograf) capsule 1 mg 1 mg, Oral, NIGHTLY, First dose on 01/30/22 at 2100, Until Discontinued, DO NOT SPLIT, CRUSH OR OPEN, Routine 2058 (Given - Provider: Carmela Alicia RN) 1117 ([facility] Hold - Provider: Admin Adt - Reason: Transfer to a Procedural area)1403 ([facility] Unhold - Provider: Admin Adt)2052 (Given - Provider: Sreedhar Arambula, JADEN) tacrolimus (Prograf) capsule 2 mg 2 mg, Oral, DAILY, First dose on Thu01/31/22 at 0900, Until Discontinued, DO NOT SPLIT, CRUSH OR OPEN, Routine 0840 (Given - Provider: Roseanna Moss RN)1117 ([facility] Hold - Provider: Admin Adt - Reason: Transfer to a Procedural area)1403 ([facility] Unhold - Provider: Admin Adt) 0836 (Given - Provider: Richard Lobo, JADEN) tamsulosin (Flomax) capsule 0.4 mg 0.4 mg, Oral, DAILY, First dose on Thu01/31/22 at 0900, Until Discontinued, DO NOT CRUSH OR OPEN, Routine 0841 (Given - Provider: Roseanna Moss RN)111 ([facility] Hold - Provider: Admin Adt - Reason: Transfer to a Procedural area)1403 ([facility] Unhold - Provider: Admin Adt) 0836 (Given - Provider: Richard Lobo, JADEN) PRN Medication Order 01/30/2022 01/31/2022 02/01/2022 acetaminophen (Tylenol) tablet 650 mg 650 mg, Oral, EVERY 4 HOURS PRN, Starting on Thu01/31/22 at 1416, Until 02/01/22 at 1812, Pain, Fever, Mild to moderate pain, Administer for mild to moderate pain. Maximum dose of acetaminophen is 4000 mg from all sources in 24 hours. When ordered for pain, acetaminophen should be given even when other ordered pain medications are indicated., Recovery (Recovery-Hospital Unit), Routine 1702 (Given - Provider: Roseanna Moss RN)2349 (Given - Provider: Sreedhar Arambula RN) 0556 (Given - Provider: Sreedhar Arambula RN)1316 (Given - Provider: Richard Lobo RN) dextrose 10% infusion(Linked Group 2) 250 mL, at 1,000 mL/hr, Intravenous, EVERY 30 MIN PRN, Starting on Laura 01/30/22 at 2317, Until 02/01/22 at 1812, For BG 50-70 mg/dL: Oral treatment preferred: [...] for the duration of the active insulin. 1117 ([facility] Hold - Provider: Admin Adt - Reason: Transfer to a Procedural area)1403 ([facility] Unhold - Provider: Admin Adt) fentaNYL (PF) (50 mcg/mL) injection 25-50 mcg (CANCELED) 25-50 mcg, Intravenous, EVERY 5 MIN PRN, Starting on Thu01/31/22 at 1044, Until Thu01/31/22 at 1416, Pain, As needed to induce or maintain moderate sedation per [facility] Moderate Sedation Policy for the duration of the EP procedure., As needed to induce or maintain moderate sedation per [facility] Moderate Sedation Policy for the duration of the EP procedure. For use in the electrophysiology lab (EP lab) only for procedural sedation with direct provider supervision and verbal order. RASS goal (-)2 to (-)3. Start at 25 mcg, Dose not to exceed 50 mcg/dose, 250 mcg/hr, or 20 mcg/kg per case. , EP (Intra-Procedure), Routine 1134 (Given - Provider: Steffen Mora RN)1204 (Given - Provider: Steffen P Monmaney, RN)1216 (Given - Provider: Steffen Mora RN)1222 (Given - Provider: Steffen Mora RN)1241 (Given - Provider: Steffen Mora RN) glucagon (Glucagen) (1 mg/mL) injection solution 1 mg(Linked Group 2) 1 mg, Intramuscular, EVERY 30 MIN PRN, Starting on Laura 01/30/22 at 2317, Until 02/01/22 at 1812, Low blood sugar, For BG 50-70 mg/dL: [...] the duration of the active insulin., Routine 1117 ([facility] Hold - Provider: Admin Adt - Reason: Transfer to a Procedural area)1403 ([facility] Unhold - Provider: Admin Adt) glucose (Glutose) 40% oral geL(Linked Group 2) 15-30 g of glucose, Buccal, EVERY 30 MIN PRN, Starting on Laura 01/30/22 at 2317, Until 02/01/22 at 1812, Low blood sugar, For BG 50-70 mg/dL: [...] weight of tube = 37.5 grams.), Routine 1117 ([facility] Hold - Provider: Admin Adt - Reason: Transfer to a Procedural area)1403 ([facility] Unhold - Provider: Admin Adt) iohexoL (Omnipaque) (350 mg/mL) solution 5-100 mL (CANCELED) 5-100 mL, Intravenous, EVERY 5 MIN PRN, Starting on Thu01/31/22 at 1044, Until Thu01/31/22 at 1416, Per Protocol, Venogram, For use in the electrophysiology lab (EP lab) only for procedural sedation with direct provider supervision and verbal order., EP (Intra-Procedure), Routine 1229 (Given - Provider: Steffen Mora RN) lidocaine (Xylocaine) 1% (10 mg/mL) injection 3 mg 3 mg (0.3 mL), Subcutaneous, ONCE PRN, 1 dose, Starting on Laura 01/30/22 at 1938, Until 02/01/22 at 1812, for discomfort with PIV insertion, Routine 1117 ([facility] Hold - Provider: Admin Adt - Reason: Transfer to a Procedural area)1403 ([facility] Unhold - Provider: Admin Adt) magnesium sulfate 2 g in sterile water 50 mL infusion(Linked Group 3) 2 g, Intravenous, EVERY 2 HOURS PRN, Starting on Thu01/31/22 at 0704, Until 02/01/22 at 1812, Administer over 120 Minutes, Hypomagnesemia, Administer one 2 g IV bag, over 120 minutes for serum magnesium of 0.65 - 0.79 mMol/L. 1117 ([facility] Hold - Provider: Admin Adt - Reason: Transfer to a Procedural area)1403 ([facility] Unhold - Provider: Admin Adt) magnesium sulfate 2 g in sterile water 50 mL infusion(Linked Group 3) 2 g, Intravenous, EVERY 2 HOURS PRN, Starting on Thu01/31/22 at 0704, Until 02/01/22 at 1812, Administer over 120 Minutes, Hypomagnesemia, Administer two 2 g IV bag, each over 120 minutes for serum magnesium of 0.5 - 0.64 mMol/L. 1117 ([facility] Hold - Provider: Admin Adt - Reason: Transfer to a Procedural area)1403 ([facility] Unhold - Provider: Admin Adt) metoprolol (LOPRESSOR) injection 5 mg (CANCELED) 5 mg, Intravenous, EVERY 5 MIN PRN, Starting on Thu01/31/22 at 1528, Until Thu01/31/22 at 1546, Elevated Heart Rate, HR 1545 (Given - Provider: Roseanna Moss RN) midazolam (pf) (Versed) (1 mg/mL) injection 0.5-1 mg (CANCELED) 0.5-1 mg, Intravenous, EVERY 5 MIN PRN, Starting on Thu01/31/22 at 1044, Until Thu01/31/22 at 1416, Anxiety, As needed to induce or maintain moderate sedation per [facility] Moderate Sedation Policy for the duration of the EP procedure., As needed to induce or maintain moderate sedation per [facility] Moderate Sedation Policy for the duration of the EP procedure. For use in the electrophysiology lab (EP lab) only for procedural sedation with direct provider supervision and verbal order. RASS goal (-)2 to (-)3. Dose not to exceed 1 mg per dose, 5 mg/hour, or 0.2 mg/kg per case., EP (Intra-Procedure), Routine 1134 (Given - Provider: Steffen Mora, JADEN)1204 (Given - Provider: Steffen Mora, JADEN)1222 (Given - Provider: Steffen Mora, JADEN)1241 (Given - Provider: Steffen Mora, JADEN) nitroGLYcerin (Nitrostat) disintegrating tablet 0.4 mg 0.4 mg, Sublingual, EVERY 5 MIN PRN, Starting on Laura 01/30/22 at 1938, Until 02/01/22 at 1812, Chest pain, May repeat every 5 minutes for a total of three doses. Notify provider if chest pain not relieved with nitroglycerin. Do not administer nitroglycerin if the patient has received or taken phosphodiesterase (PDE-5) inhibitors such as sildenafil, tadalafil or vardenafil within the last 24 to 72 hours., Routine 1117 ([facility] Hold - Provider: Admin Adt - Reason: Transfer to a Procedural area)1403 ([facility] Unhold - Provider: Admin Adt) sodium chloride 0.9 % (flush) (BD PosiFlush Normal Saline 0.9) flush 5-20 mL 5-20 mL, Intravenous, EVERY 1 MIN PRN, Starting on Thu01/30/22 at 1938, Until 02/01/22 at 1812, flush, Flush pertains to all indwelling lines. Flush per protocol found in the job aid using the link provided on this medication record., Routine 1117 ([facility] Hold - Provider: Admin Adt - Reason: Transfer to a Procedural area)1403 ([facility] Unhold - Provider: Admin Adt) sodium chloride 0.9 % (flush) (BD PosiFlush Normal Saline 0.9) flush 5-20 mL 5-20 mL, Intravenous, EVERY 1 MIN PRN, Starting on Thu01/31/22 at 1416, Until 02/01/22 at 1812, flush, Flush pertains to all indwelling lines. Flush per protocol found in the job aid using the link provided on this medication record., Recovery (Recovery-Hospital Unit), Routine Linked Groups Order Group 1: POCT Fingerstick Glucose (CANCELED) Routine, 4 TIMES DAILY BEFORE MEALS & AT BEDTIME, First occurrence on Thu01/30/22 at 2320, Until Specified, Consider choosing FOUR TIMES A DAY BEFORE MEALS AND AT BEDTIME as frequency for: Patients who have a good hypoglycemia awareness: -Patients who are eating meals during the day and sleeping at night -Patient who are otherwise stable And insulin lispro (HumaLOG;Admelog) (100 unit/mL) subcutaneous injection vial 1-6 UnitsJump to med 1-6 Units, Subcutaneous, 4 TIMES DAILY BEFORE MEALS & NIGHTLY, First dose on Thu01/31/22 at 0015, Until Discontinued, CORRECTION BOLUS [1-6 Units] Moderate Sliding Scale (BG in mg/dL): Correction factor 20 (1 unit of insulin is expected to drop the glucose 20 mg/dL) BG 140 - 160 Give 1 unit BG 161 - 180 Give 2 units BG 181 - 200 Give 3 units BG 201 - 220 Give 4 units BG 221 - 240 Give 5 units BG greater than 240, give 6 units and recheck BG in 2 hours. - If recheck BG is LESS than 240, give no insulin and resume schedule. - If recheck BG is GREATER than 240, give 6 units and repeat BG in 2 hours [...] Buccal, EVERY 30 MIN PRN, Starting on Laura 01/30/22 at 2317, Until 02/01/22 at 1812, Low blood sugar, For BG 50-70 mg/dL: [...] Intravenous, EVERY 30 MIN PRN, Starting on Laura 01/30/22 at 2317, Until 02/01/22 at 1812, For BG 50-70 mg/dL: Oral treatment preferred: [...] Intramuscular, EVERY 30 MIN PRN, Starting on Laura 01/30/22 at 2317, Until 02/01/22 at 1812, Low blood sugar, For BG 50-70 mg/dL: [...] the duration of the active insulin., Routine Group 3: magnesium sulfate 2 g in sterile water 50 mL infusionJump to med 2 g, Intravenous, EVERY 2 HOURS PRN, Starting on Thu01/31/22 at 0704, Until 02/01/22 at 1812, Administer over 120 Minutes, Hypomagnesemia, Administer one 2 g IV bag, over 120 minutes for serum magnesium of 0.65 - 0.79 mMol/L. Or magnesium sulfate 2 g in sterile water 50 mL infusionJump to med 2 g, Intravenous, EVERY 2 HOURS PRN, Starting on Thu01/31/22 at 0704, Until 02/01/22 at 1812, Administer over 120 Minutes, Hypomagnesemia, Administer two 2 g IV bag, each over 120 minutes for serum magnesium of 0.5 - 0.64 mMol/L. documented in this encounter Care Teams Supervisor [employer] Relationship Specialty Start Date End Date Urbano Denis DO [address] [place] [address] PCP - General 09/03/12 03/17/22 Ruchi Valles RN Nurse Clinic Transplant Surgery 07/30/15 documented as of this encounter
--- OUTSIDE RECORDS SUMMARY | 2024-02-14 11:18 | XMS_ITS | Encounter Summary ---
Author Organization [facility] [place] [address] Care Team Providers Care Wool Broker Name Role Phone Urbano Denis DO Primary Care Provider + [phone] Reason for Visit * Auth/Cert Specialty Diagnoses / Procedures Referred By Humberto flor Referred To Contact Diagnoses Tachy-roman syndrome Tachy-Roman Syndrome Procedures emerg ipi Niru Harrison MD [facility] [place] [address] [facility] Referral ID Status Reason Start Date Expiration Date Visits Re quested Visits Authorized [id number] 1 1 Encounter Details Date Type Department Care Team (Latest Contact Info) Description 01/30/2022 6:01 PM EDT - 02/01/2022 4:11 PM EDT Hospital Encounter [place] [address] Misael Ellis MD [facility] [place] [address] Niru Harrison MD [facility] [place] [address] Atrial fibrillation with RVR - had flutter initially, then fib; Sinus pause; Bradycardia; Atrial fibrillation with RVR; Tachy-roman syndrome Discharge Disposition: Home Social History [...] Sign Reading Time Taken Comments Blood Pressure 144/76 02/01/2022 7:33 AM EDT Pulse 71 02/01/2022 7:33 AM EDT Temperature 36.8 ??C (98.2 ??F) 02/01/2022 7:33 AM ED T Respiratory Rate 15 02/01/2022 7:33 AM EDT Oxygen Saturation 96% 02/01/2022 7:33 AM EDT Inhaled Oxygen Concentration - - Weight 101.2 kg (223 lb) 02/01/2022 5:23 AM EDT Height 180.3 cm (5' 10.98) 01/30/2022 6:00 PM E DT Body Mass Index 31.12 01/30/2022 6:00 PM EDT documented in this encounter Discharge Summaries * Niru Harrison MD - 02/01/2022 9:29 AM EDT Discharge Summary Patient Name: Ethel Akins Patient Age: 71 y.o. Language: Martiniquais Race: White Ethnicity: Not nor Admit date: 01/30/2022 Discharge date and time: 02/01/2022 Attending Physician: Misael Ellis MD Discharge Physician: Misael Ellis MD ?? I have seen and examined this patient and discussed with the internal control analyst, resident, fellow. ??I agree with the plan noted ?? This is a 71 year old gentleman, followed by cardiology at [facility] (Dr Michael Brown). 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 ??2019 he underwent PCI, also history of basal ganglia bleed. ??Now with atrial fibrillation. He underwent pacemaker implantation (see details below). Note that we did not anticoagulate him as he has history of basal ganglia bleed. His BNNTO0LEKR score is high and I have reached out to his preschool assistant teacher (Dr. Michael Brown) to have him follow up (attempt at orthodox of sinus, benefits:risks foranticoagulation, consideration of Watchman Device). Niru Harrison MD, Karen, [facility] Attending Bioinformatics Associate ID: Ethel Akins is a 71 y.o. [...] to be safe. PCP Contact Information: Urbano Denis DO [address] / [facility] [place] [address] Pending Studies and Lab Data: none Discharge [...] Vitamin D deficiency ??? 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 CAH [...] s/p renal transplant in 2016, also with wkc-wjqavqz-nsdqeifmm diabetesmellitus, who presents with 3 weeks of intermittent lightheadedness. ?? He reports that approximately 3 weeks ago intermittent lightheadedness that was random and without any associated factors. He presented to the ER 2 times, initially to [facility] where hewas incidentally found to have [...] after that. This morning he presented to [facility] with frequent e pisodes of lightheadedness, as well as dyspnea on exertion, and was found to be in A. fib with intermittent bradycardia into the 20s. [facility] cardiology was consulted for transfer for pacemaker [...] place for about 24 hours. ?? At [facility] labs were notable for WBC 10.3, hemoglobin [...] Mr. Akins presented as a transfer from [facility] due to symptomatic pauses in his [...] demonstrated successful placement of his PPM. ?? #ARY of transplant kidney - resolved #ESRD s/p renal transplant in 2016 On presentation, his Cr was 1.9, increased from his baseline of ~1.4. This improved without intervention the following day. A tacrolimus trough on 01/31 was in the therapeutic range. He was continued on his LAVATORY ATTENDANT tacrolimus and CellCept throughout admission.?? Procedures: Dual-Chamber [...] Recent Labs 01/30/222144 HA1C 6.7* Recent Labs 01/30/22 214 TSH 3.44 Recent Labs 01/30/222144 HDL 33 [...] days of leaving the hospital. PCP: Urbano Denis DO @ [phone] General Instructions - BEGIN EP DISCHARGE INSTRUCTIONS - FINAL PACEMAKER RECOMMENDATIONS: 1. Standard post implant discharge instructions (see below): 2. Medications as listed above. 3. You may use ice packs over the incision. Make sure to use a cloth bolt bander (such as a towel) in between the [...] F. The office scheduling phone number is [phone]. ARM MOVEMENT RESTRICTIONS POST-IMPLANT - Do not [...] product, please call the device clinic at [phone]. - END EP DISCHARGE INSTRUCTIONS - Future Appointments and Orders Future Appointments and Orders Future Appointments Provider Department Dept Phone 02/05/2022 11:00 AM Byron Brown MD Cardiology at [facility] Arrive at: [facility] [employer] Area [phone] 02/12/2022 11:00 AM Elisha Amaya RN Cardiology at [facility] Arrive at: [facility] Area [phone] 04/04/2022 1:30 PM Mayco Barnes PA Cardiology at [facility] Arrive at: [facility] [employer] Area [phone] 05/05/2022 1:30 PM Elisha Amaya RN Cardiology at [facility] Arrive at: [facility] [employer] Area [phone] Primary Team Inpatient Physicians at [facility] was: Attending Physician(s): Niru Harrison MD Fellow: Que Raygoza MD Resident(s): Kayy Acosta MD Inpatient Provider Contact Information: If you have questions about this document please contact the [facility] plisse machine operator at and ask for one of [...] the incision. Make sure to use a cloth bolt bander (such as a towel) in between the [...] F. The office scheduling phone number is [phone]. ARM MOVEMENT RESTRICTIONS POST-IMPLANT - Do not [...] product, please call the device clinic at [phone]. - END EP DISCHARGE INSTRUCTIONS - * [...] days of leaving the hospital. PCP: Urbano Denis DO @ [phone] documented in this encounter Medications at Time [...] interrogation done this morning by CAROLIN. Domenic rabago CDI. AVS reviewed with pt and at [...] Mr. Akins is referred to his primary preschool assistant teacher ,Dr. Brown and his neurologist, Dr. Rebolledo regarding this issue. Post implant arm restrictions discussed. Follow up at [facility] device clinic. Nikolas Loving MD S Cardiac Electrophysiology 02/01/2022 9:44 AM * Nikolas Loving MD - 02/01/2022 9:17 AM EDT Cardiac Electrophysiology Post-Implant Device Assessment/Rounding Note Ethel Akins [id number] 02/01/2022 History: Ethel Akins is a 71 [...] FINAL LEAD PARAMETERS: Pulse generator: ? 1. ArgoPayure XT DR MRI Model #W1DR01, Serial # [id number] Atrial lead ?? 1. Medtronic CapsureFix Model# 5076-45 cm Serial# [id number] ??? Bipolar, steroid-tipped, active-fixation IS-1 lead ??? Access: ? Right Axillary vein ??? Location ? Right atrial appendage ??? F wave, pacemaker: ?? 0.6 mV ??? Pacing threshold, pacemaker: N/A (pt in atrial flutter) ??? Impedance, pacemaker: ??437 Ohms ??? Diaphragmatic Stim. @ 8V: ??No Ventricular electrode: ?? Medtronic CapsureFix Model# 5076-52 cm Serial# [id number] ??? Bipolar, steroid-tipped, active-fixation IS-1 lead ??? Access: ? Right Axillary vein ??? Location: ?Right ventricular apical septum ??? R wave, pacemaker: ?11.1 mV ??? Pacing threshold, pacemaker: 0.5 V at 0.4 ms ??? Impedance, pacemaker: ??607 ohms ??? Diaphragmatic Stim. @ 8V : No Diagnostics Pacing Mode: AAIR <==> DDDR 60/130/130 Presenting EGMs: -VS/-DRUG ABUSE COUNSELOR Underlying Rhythm: AFib 70-80's Atrial Episodes: 97.2% [...] post placement of right anterior chest wall dual-hospice team lead. Impression: 71 y.o. male who is s/p [...] 02/01/22. ? Dr. Nikolas Loving, electrophysiology attending ([id number]) * Niru Harrison MD - 02/01/2022 9:09 AM EDT Cardiology Day of Discharge Note ?? I have seen and examined this patient and discussed with the internal control analyst, resident, fellow. ??I agree with the plan noted ?? This is a 71 year old gentleman, followed by cardiology at [facility] (Dr Michael Brown). 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 ??2019 he underwent PCI, also history of basal ganglia bleed. ??Now with atrial fibrillation. He underwent pacemaker implantation (see details below). Note that we did not anticoagulate him as he has history of basal ganglia bleed. His YTQXY7TSTN score is high and I have reached out to his preschool assistant teacher (Dr. Michael Brown) to have him follow up (attempt at orthodox of sinus, benefits:risks foranticoagulation, consideration of Watchman Device). ?? Niru Harrison MD, Karen, [facility] Cardiology Attending? Ethel Gomez Keniavaughn was seen and examined on rounds. Vital [...] Internal Medicine PGY-1 02/01/22 9:09 AM * Sigrid Moss RN - 01/31/2022 3:37 PM EDT [...] examined this patient and discussed with the internal control analyst, resident, fellow. I agree withthe plan noted ?? This is a 71 year old gentleman, followed by cardiology at [facility] (Dr Michael Brown). He has history of renal transplant, previous tachy-cardia mediated cardiomyopathy but recovered LV systolic function. 2019 he underwent PCI, also history of basal ganglia bleed. Now with atrial fibrillation. He will be ev aluated for pacemaker implantation--question of tachy/roman syndrome. ?? Niru Harrison MD, Karen, [facility] Attending ?? Patient Name: Ethel Akins [...] 22* 23* CREATININE 1.58* 1.87* Recent Labs 01/30/222144 AST 17 ALT 19 ALKPHOS 61 BILITOT [...] atrial fibrillation/ flutter previously on Eliquis but PA'ed due to hemorrhagic stroke, tachymyopathy with EF [...] Kayy Acosta MD Internal Medicine PGY-1 Pager [phone], M1-S1 Service * Carmela Alicia RN - [...] examined this patient and discussed with the internal control analyst, resident, fellow. I agree withthe plan noted This is a 71 year old gentleman, followed by cardiology at [facility] (Dr Michael Brown). He has history of renal transplant, previous tachy-cardia mediated cardiomyopathy but recovered LV systolic function. 2019 he underwent PCI, also history of basal ganglia bleed. Now with atrial fibrillation. He will be ev aluated for pacemaker implantation--question of tachy/roman syndrome. Niru Harrison MD, Karen, [facility] Cardiology Attending Patient Name: Ethel Akins Service: Cardiology Team Responsible Attending: MISAEL ELLIS MD PCP: Urbano Denis DO PCP phone #: [phone] ID/Chief Complaint: Lightheadedness Tachybradycardia syndrome History of Present Illness: Mr. 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 He reports that approximately 3 weeks ago intermittent lightheadedness that was random and without any associated factors. He presented to the ER 2 times, initially to [facility] where hewas incidentally found to have [...] after that. This morning he presented to [facility] with frequent e pisodes of lightheadedness, as well as dyspnea on exertion, and was found to be in A. fib with intermittent bradycardia into the 20s. [facility] cardiology was consulted for transfer for pacemaker [...] in place for about 24 hours. At [facility] labs were notable for WBC 10.3, hemoglobin [...] Vitamin D deficiency ??? 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 skilled nursing current use of 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 drug ??? CAH [...] kg ABG No results for input(s): PHART, IRB3OSO, PO2ART, JXV3LFB in the last 168 hours. Examination: General [...] in the last 7068 hours. Invalid input(s): [id number] Heme: No results for input(s): LDH, HAPTOGLOBIN, URICACID in the last 168 hours. Microbiology: None Diagnostic Studies: No results found for this visit on 01/30/22. EKG here 01/30: Prior EKG at [facility] 01/10: CXR 01/30/22- MRI brain at [facility] 01/16/22: ASSESSMENT: Mr. Black is a 71M [...] block and frequent symptomatic pauses, transferred from [facility]. 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 Unclear trigger of his recurrent aflutter that was not detected on prior zioin 03/2021. No recent ischemic or infectious symptoms and exam today is benign. PLAN: Admit to Cardiology Team S1, Team Pager #[phone](S1) #Aflutter with variable block #symptomatic systolic pauses [...] MD Medicine, PGY-2 Cardiology Team S1, pager #[phone] 01/30/2022 documented in this encounter Miscellaneous Notes * Plan of Care - Sreedhar Arambula, JADEN - 02/01/2022 4:44 AM EDT OUTCOME EVALUATION NOTE: OUTCOME SUMMARY: Uneventful night. No chest pain or sob reported. Pacemaker dressing CDI, no hematoma noted. VSS. Afib on on tele with freq pacing, see saved strips. NPO since midnight. PLAN MOVING FORWARD: Chest xray Discharge planing * Plan of Care - Marlys-Sigrid Cardona RN - 01/31/2022 6:51 PM EDT OUTCOME [...] from the original note were not included. [facility] [place] [address] CARDIOLOGY ELECTROPHYSIOLOGY NOTE 01/31/22 Consult Reason: Lightheadedness in the setting of afib/aflutter tachy-roman syndrome and ESRD status HPI: Mr. Akins is a pleasant 71 yo M with hx of atypical aflutter/afib, HTN, tachy-roman syndrome, renal transplant who was transferred to [facility] on 01/30/22 for frequent episodes of lightheadedness. [...] night. 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 Retired. Allergy: + [place] No medication allergies No current facility-administered medications [...] Pulse: (!) 101 79 (!) 109 Resp: 15 Temp: TempSrc: SpO2: 97% 93% 96% Weight: [...] 95, LAFB, qtc 500 EKG 01/30/22 at [facility]: afib, HR 76 TTE 01/31/22: LVEF 46% [...] past three weeks. He was transferred to [facility] for EP evaluation. He has a hx of renal transplant in 2016 and developed an RAY with Cr up to 1.8s from 1.2 oneyear ago here. For this reason, optimizing his cardiac output with better rate control is needed to protect the transplanted kidney. He qualifies for a dual chamber pacemaker. ASSEMBLER TRUCK TRAILER was considered but this will not be [...] Gonzales. Attestation to follow. Anali Dominguez MD Slitting And Shipping Supervisor, PGY4 Pager [phone] Addendum I personally interviewed and examined the patient, reviewed the available data. The above note reflects our thoughts and discussion. This 71-year-old man is transferred from [facility], for consideration of pacemaker therapy for tachycardia/bradycardia. [...] his paroxysmal to persistentatrial fibrillation, and elevated ARU7CP4-LITt score, CVA protection should be considered. ERASMO GONZALES MD documented in this encounter Plan of Treatment Upcoming Encounters Date Type Department Care Team (Late st Contact Info) Description 04/15/2024 10:00 AM EDT Hospital Encounter [place] [address] Arrived Scheduled Orders Name Type [...] 017 10:41 AM EDT) No Selena Cisneros [facility] Note: Patient Goal: Clear hepatitis [...] * POCT Glucose (02/01/2022 1:13 PM EDT) [facility] Glucose, POC 120 65 - 199 mg/dL [facility] Comment: Supplemental ranges: <140 mg/dL before meals <180 mg/dL all other times of the day Blood 02/01/2022 1:13 PM EDT 02/01/2022 1:13 PM EDT Misael Ellis MD POINT OF CARE TEST O RDERABLES [facility] [place] [address] * (ABNORMAL) POCT Glucose (02/01/2022 11:21 AM EDT) Glucose, POC 254(H) 65 - 199 mg/dL [facility] Comment: Supplemental ranges: <140 mg/dL before meals <180 mg/dL all other times of the day Blood 02/01/2022 11:2 1 AM EDT 02/01/2022 11:21 AM EDT Misael Ellis MD POINT OF CARE TEST O TED Performing Organization Address [facility] de Phone Number [facility] [place] [address] * (ABNORMAL) POCT Glucose (02/01/2022 11:09 AM EDT) Glucose, POC 218(H) 65 - 199 mg/dL [facility] Comment: Supplemental ranges: <140 mg/dL before meals <180 mg/dL all other times of the day Blood 02/01/2022 11:0 9 AM EDT 02/01/2022 11:09 AM EDT Misael Ellis MD POINT OF CARE TEST O TED Performing Organization Address [facility] de Phone Number [facility] [place] [address] * XR Chest PA & Lateral (Generic) (02/01/2022 7:56 AM EDT) Anatomical Region Laterality Modality Chest N/A Digital Radiogra phy Impressions 02/01/2022 11:17 AM EDT No pneumothorax status post placement of right anterior chest wall dual-hospice team lead. Thank you for letting us participate in the care of this patient. ??If you are a health care provider and have any questions regarding this report, please contact the number below. ??For patients who have questions please contact the health long term care social worker that requested your imaging first. ? Electronically signed by: Kitty Valencia MD, [facility] ([phone]), at 02/01/2022 11:17 AM Narrative 02/01/2022 11:17 AM EDT EXAMINATION: XR [...] status post placement of right anterior chest walldual-hospice team lead. Thank you for letting us participate in the care of this patient. If youare a health care provider and have any questions regarding this report,please contact the number below. For patients who have questions please contactthe health long term care social worker that requested your imaging first. Electronically signed by: Kitty Valencia MD, [facility]([phone]), at 02/01/2022 11:17 AM Jay Urban MD IMG DX ORDERABLES * POCT Glucose (02/01/2022 7:32 AM EDT) [facility] Signature Glucose, POC 133 65 - 199 mg/dL [facility] Comment: Supplemental ranges: <140 mg/dL before meals <180 mg/dL all other times of the day Blood 02/01/2022 7:32 AM EDT 02/01/2022 7:32 AM EDT Misael Ellis MD POINT OF CARE TEST O RDERABLES Performing Organization Address City/[facility]/ZIP Co de Phone Number [facility] [place] [address] * Phosphorus (02/01/2022 3:29 AM EDT) Phosphorus 2.9 2.5 - 4.5 mg/dL [facility] Blood 02/01/2022 3:29 AM EDT 02/01/2022 3:43 AM EDT Narrative Resulting Agency Comment Spec In Lab Jay Urban MD CHEMISTRY ORDERABLES Performing Organization Address [facility] Co de Phone Number [facility] [place] [address] * Magnesium (02/01/2022 3:29 AM EDT) Magnesium 0.72 0.69 - 1.07 mmol/L [facility] Blood 02/01/2022 3:29 AM EDT 02/01/2022 3:43 AM EDT Narrative Resulting Agency Comment Spec In Lab Jay Urban MD CHEMISTRY ORDERABLES Performing Organization Address [facility] Co de Phone Number [facility] [place] [address] * (ABNORMAL) Basic Metabolic Panel (non-fasting) (02/01/2022 3:29 AM EDT) Glucose 104 65 - 199 mg/dL [facility] Comment:Diabetes: >=200 mg/d L plus symptoms Blood Urea Nitrogen 22(H) 10 - 20 mg/dL [facility] Creatinine 1.38 0.80 - 1.50 mg/dL [facility] Sodium 143 135 - 145 mmol/L [facility] Potassium 3.7 3.5 - 5.0 mmol/L [facility] Comment: Please note: ??Patients with WBC >100,000 may have falsely elevated Potassium levels. ??For accurate Potassium quantification in these patients send serum separator tube (gold top) for subsequent determinations. ??Contact the Clinical Chemistry Laboratory if there are any questions. Chloride 108(H) 98 - 107 mmol/L [facility] Carbon Dioxide 23 22 - 31 mmol/L [facility] Anion Gap 12 5 - 15 mmol/L [facility] Calcium 8.4(L) 8.5 - 10.5 mg/dL [facility] Est Glomerular Filtration Rate 54(L) >=60 mL/min/1. 73 m?? [facility] Comment: This patient's estimated [...] In Lab Jay Urban MD CHEMISTRY ORDERABLES [facility] [place] [address] * POCT Glucose (01/31/2022 8:37 PM EDT) Glucose, POC 99 65 - 199 mg/dL [facility] Comment: Supplemental ranges: <140 mg/dL before meals <180 mg/dL all other times of the day Blood 01/31/2022 8:37 PM EDT 01/31/2022 8:37 PM EDT Misael Ellis MD POINT OF CARE TEST O RDERABG Performing Organization Address [facility] Co de Phone Number [facility] [place] [address] * (ABNORMAL) POCT Glucose (01/31/2022 5:05 PM EDT) Glucose, POC 225(H) 65 - 199 mg/dL [facility] Comment: Supplemental ranges: <140 mg/dL before meals <180 mg/dL all other times of the day Blood 01/31/2022 5:05 PM EDT 01/31/2022 5:05 PM EDT Misael Ellis MD POINT OF CARE TEST O DENNYSERABG Performing Organization Address [facility] Co de Phone Number [facility] [place] [address] * POCT Glucose (01/31/2022 2:31 PM EDT) Glucose, POC 124 65 - 199 mg/dL [facility] Comment: Supplemental ranges: <140 mg/dL before meals <180 mg/dL all other times of the day Blood 01/31/2022 2:31 PM EDT 01/31/2022 2:31 PM EDT Misael Ellis MD POINT OF CARE TEST O TED Performing Organization Address [facility] Co de Phone Number [facility] [place] [place] [address] * ELECTROPHYSIOLOGY PROCEDURE (01/31/2022 1:49 PM EDT) Anatomical Region Laterality Modality Other Narrative 01/31/2022 2:09 PM EDT [facility] CARDIAC ELECTROPHYSIOLOGY LABORATORY CARDIAC DEVICE OPERATIVE NOTE PATIENT: Ethel Akins DATE OF OPERATION: 01/31/2022 CLASSROOM INSTRUCTOR (Contract Administration Manager): JAY URBAN MD, PhD FOUNDRY LABORER COREROOM: Anali Dominguez MD REFERRING UPPER CUTTER MACHINE: Niru Harrison MD PRE-PROCEDURE DIAGNOSIS/INDICATION(S): paroxysmal atrial [...] LEAD PARAMETERS: Pulse generator: ? 1. Medtronic [place] XT DR MRI Model #W1DR01, Serial # [id number] Atrial lead ?? 1. Medtronic CapsureFix Model# 5076-45 cm Serial# [id number] ? ? Bipolar, steroid-tipped, active-fixation IS-1 lead ? ? Access: ? Right Axillary vein ? ? Location ? Right atrial appendage ? ? F wave, pacemaker: ?? 0.6 mV ? ? Pacing threshold, pacemaker: N/A (pt in atrial flutter) ? ? Impedance, pacemaker: ??437 Ohms ? ? Diaphragmatic Stim. @ 8V: ??No Ventricular electrode: ?? Medtronic CapsureFix Model# 5076-52 cm Serial# [id number] ? ? Bipolar, steroid-tipped, active-fixation IS-1 lead [...] guidance using modified ??Seldinger micropuncture technique. A [place] ??wire was advanced to the right atrium under fluoroscopic guidance. 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 The patient's spouse Mara was updated immediately following the procedure. Recommend no systemic anticoagulation x 72 hours minimum. Electronically signed by: Jay Urban MD, PhD, [facility] Procedure Note Jay Urban MD - 01/31/2022 [facility] CARDIAC ELECTROPHYSIOLOGY LABORATORY CARDIAC DEVICE OPERATIVE NOTE PATIENT: Ethel Akins DATE OF OPERATION: 01/31/2022 CLASSROOM INSTRUCTOR (Contract Administration Manager): JAY URBAN MD, PhD FOUNDRY LABORER COREROOM: Anali Dominguez MD REFERRING UPPER CUTTER MACHINE: Niru Harrison MD PRE-PROCEDURE DIAGNOSIS/INDICATION(S): paroxysmal atrialfibrillation/flutter and tachy-roman syndrome POST-PROCEDURE DIAGNOSIS: same PROCEDURE(S) PERFORMED: 1. Implantation of a permanent transvenous dualchamber pacemaker system ANESTHESIA: local and monitored anesthesia care INTRAVENOUS CONTRAST: 10 mL Omnipaque FLUOROSCOPY TIME & DOSE: 13.2 minutes, 119 Gycm2 ESTIMATED BLOOD LOSS: 15 mL COMPLICATIONS: none immediate IMPLANTED HARDWARE and FINAL LEAD PARAMETERS: Pulse generator: 1. Medtronic [place] XT DR MRI Model #[id number], Serial # [id number] Atrial lead 1. Medtronic CapsureFix Model# 5076-45 cm Serial# [id number] ? ? Bipolar, steroid-tipped, active-fixation IS-1 lead ? ? Access: Right Axillary vein ? ? Location Right atrial appendage ? ? F wave, pacemaker: 0.6 mV ? ? Pacing threshold, pacemaker: N/A (pt in atrial flutter) ? ? Impedance, pacemaker: 437 Ohms ? ? Diaphragmatic Stim. @ 8V: No Ventricular electrode: Medtronic CapsureFix Model# 5076-52 cm Serial# [id number] ? ? Bipolar, steroid-tipped, active-fixation IS-1 lead [...] fluoroscopic guidance usingmodified Seldinger micropuncture technique. A [place] wire was advanced tothe right atrium under fluoroscopic guidance. Over the guide wire, a 9-Tajik long peel-away Safe-sheath was insertedinto the vein. 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 The patient's spouse Mara was updated immediately following theprocedure. Recommend no systemic anticoagulation x 72 hours minimum. Electronically signed by: Jay Urban MD, PhD, FACC Jay Urban MD EP PROCEDURE ORDERAB LES * POCT Glucose (01/31/2022 11:00 AM EDT) [facility] Signature Glucose, POC 130 65 - 199 mg/dL [facility] Comment: Supplemental ranges: <140 mg/dL before meals <180 mg/dL all other times of the day Blood 01/31/2022 11:0 0 AM EDT 01/31/2022 11:00 AM EDT Misael Ellis MD POINT OF CARE TEST O RDERABLES [facility] [place] [address] * ECHO COMPLETE (01/31/2022 8:29 AM EDT) EF 46 HEARTLAB SYSTEM Anatomical Region Laterality Modality Cardiac Other 01/31/2022 7:24 AM EDT Narrative 01/31/2022 9:05 AM EDT ? Echocardiogram Report Name: ETHEL AKINS ?Study Date: 01/31/2022 07:24 AMBP: 118/95 mmHg ? Patient Location: CSCU C453 A : 1950 ? Height: 180 cm ? Account: [id number] Age: 71 yrs ? Weight: 100 kg Gender: Male ?BSA: 2.2 m2 Ordering Physician: NIRU HARRISON Referring Physician: NICOLÁS REAGAN Performed By: Monster Abraham RDCS Reason For Study: Arrhythmia Exam Location: [facility]. Interpretation Summary Left ventricle [...] function, the estimated PASP has increased. Procedure Complete-49827. Satisfactory quality. The rhythm is atrial fibrillation. [...] Date: 207:24 AMBP: 118/95 mmHg Patient Location: [address] : 1950 Height: 180 cm Account: [id number] Age: 71 yrs Weight: 100 kg Gender: Male BSA: 2.2 m2 Ordering Physician: NIRU HARRISON Referring Physician: NICOLÁS REAGAN Performed By: Monster Abraham RDCS Reason For Study: Arrhythmia Exam Location: [facility]. Interpretation Summary Left ventricle [...] systolic function, the estimated PASP hasincreased. Procedure Complete-19542. Satisfactory quality. The rhythm is atrial fibrillation. [...] EDT) Phosphorus 2.7 2.5 - 4.5 mg/dL [facility] Blood 01/31/2022 8:16 AM EDT 01/31/2022 8:38 AM EDT Narrative Resulting Agency Comment Spec In Lab Misael Ellis MD CHEMISTRY ORDERABLES Performing Organization Address City/[facility]/ZIP Co de Phone Number [facility] [place] [address] * Magnesium (01/31/2022 8:16 AM EDT) Pathologist [facility] Magnesium 0.82 0.69 - 1.07 mmol/L [facility] Blood 01/31/2022 8:16 AM EDT 01/31/2022 8:38 AM EDT Narrative Resulting Agency Comment Spec In Lab Misael Elils MD CHEMISTRY ORDERABLES Performing Organization Address [facility] Co de Phone Number [facility] [place] [address] * (ABNORMAL) Basic Metabolic Panel (non-fasting) (01/31/2022 8:16 AM EDT) Pathologist [facility] Glucose 137 65 - 199 mg/dL [facility] Comment:Diabetes: >=200 mg/d L plus symptoms Blood Urea Nitrogen 22(H) 10 - 20 mg/dL [facility] Creatinine 1.58(H) 0.80 - 1.50 mg/dL [facility] Sodium 143 135 - 145 mmol/L [facility] Potassium 3.9 3.5 - 5.0 mmol/L [facility] Comment: Please note: ??Patients with WBC >100,000 may have falsely elevated Potassium levels. ??For accurate Potassium quantification in these patients send serum separator tube (gold top) for subsequent determinations. ??Contact the Clinical Chemistry Laboratory if there are any questions. Chloride 108(H) 98 - 107 mmol/L [facility] Carbon Dioxide 24 22 - 31 mmol/L [facility] Anion Gap 11 5 - 15 mmol/L [facility] Calcium 8.9 8.5 - 10.5 mg/dL [facility] Est Glomerular Filtration Rate 46(L) >=60 mL/min/1. 73 m?? [facility] Comment: This patient's estimated [...] In Lab Misael Ellis MD CHEMISTRY ORDERABLES [facility] [place] [address] * Tacrolimus level (01/31/2022 8:16 AM EDT) Tacrolimus 8.0 ng/mL [facility] Comment: Trough therapeutic range is [...] Ellis MD CHEMISTRY ORDERABLES Performing Organization Address City/[facility]/ZIP Co de Phone Number [facility] [place] [address] * POCT Glucose (01/31/2022 8:07 AM EDT) Glucose, POC 137 65 - 199 mg/dL [facility] Comment: Supplemental ranges: <140 mg/dL before meals <180 mg/dL all other times of the day Blood 01/31/2022 8:07 AM EDT 01/31/2022 8:07 AM EDT Misael Ellis MD POINT OF CARE TEST O RDERABLES Performing Organization Address [facility] Co de Phone Number [facility] [place] [place] [address] * (ABNORMAL) Urinalysis Microscopic Exam (01/31/2022 1:30 AM EDT) RBC, Urine 4(H) 0 - 3 /HPF [facility] WBC, Urine 1 0 - 3 /HPF [facility] Squamous Epithelial Cells Raw Data, Urine 1 <=4 /HPF [facility] Hyaline Casts, Urine 2 0 - 2 /LPF [facility] Clean Catch Urine 01/31/2022 1:30 AM EDT 01/31/2022 1:42 AM EDT Narrative Resulting Agency Comment Spec In Lab Les Garcia MD URINE ORDERABL ES Performing Organization Address [facility] Co de Phone Number [facility] [place] [address] * Sodium, urine, random (01/31/2022 1:30 AM EDT) Sodium, Urine <20 mmol/L [facility] Urine 01/31/2022 1:30 AM EDT 01/31/2022 1:41 AM EDT Narrative Resulting Agency Comment Spec In Lab Misael Ellis MD URINE ORDERABLES Performing Organization Address [facility]/ZIP Co de Phone Number [facility] [place] [address] * Creatinine, urine, random (01/31/2022 1:30 AM EDT) Creatinine, Urine 173 mg/dL [facility] Urine 01/31/2022 1:30 AM EDT 01/31/2022 1:41 AM EDT Narrative Resulting Agency Comment Spec In Lab Misael Ellis MD URINE ORDERABLES [facility] [place] [address] * (ABNORMAL) Urinalysis with reflex Culture (01/31/2022 1:30 AM EDT) Glucose, Urine Dipstick Negative Negative mg/dL [facility] Protein, Urine Dipstick 100(A) Negative mg/dL [facility] Bilirubin, Urine Dipstick Negative Negative mg/dL [facility] Comment: Clinical correlation required for positive Urine Bilirubin results as false positive may occur with some drugs and drug related products. If a false positive is suspected a serum total bilirubin should be considered if clinically indicated. Urobilinogen, Urine Dipstick Normal Normal mg/dL [facility] pH, Urn (dipstick) 5.5 5.0 - 8.0 [facility] Blood, Urine Dipstick Negative Negative mg/dL [facility] Ketone, Urine Dipstick Trace(A) Negative mg/dL [facility] Nitrite, Urine Dipstick Negative Negative [facility] Leukocytes, Urine Dipstick Negative Negative [facility] Appearance, Urine Dipstick Clear Clear [facility] Specific Blanco Urine Automated 1.021 1.005 - 1.030 [facility] Color, Urine Dipstick Yellow Yellow [facility] Reflex to Culture No [facility] Clean Catch Urine 01/31/2022 1:30 AM EDT 01/31/2022 1:42 AM EDT Narrative Resulting Agency Comment Spec In Lab Misael Ellis MD URINE ORDERABLES Performing Organization Address [facility]/ZIP Co de Phone Number [facility] [place] [address] * POCT Glucose (01/31/2022 12:06 AM EDT) Glucose, POC 116 65 - 199 mg/dL [facility] Comment: Supplemental ranges: <140 mg/dL before meals <180 mg/dL all other times of the day Blood 01/31/2022 12:0 6 AM EDT 01/31/2022 12:06 AM EDT Misael Ellis MD POINT OF CARE TEST O RDERABLES Performing Organization Address [facility] Co de Phone Number [facility] [place] [address] * (ABNORMAL) Hemoglobin A1c (01/30/2022 9:45 PM EDT) Hemoglobin A1c 6.7(H) 4.3 - 5.6 % [facility] Comment: Reference Range: 4.3 - [...] [id number] Estimated Average Glucose See note mg/dL [facility] Comment: Estimated Average Glucose not [...] into estimated average glucose values. ??Diabetes Care 2008:31(8):4526-8484. Blood Venous Draw / Unknown 01/30/2022 9:45 PM EDT 01/30/2022 11:41 PM EDT Narrative Resulting Agency Comment Spec In Lab Les Garcia MD CHEMISTRY ROCHELLE JENNINGS [facility] [place] [address] * (ABNORMAL) Differential, Automated (01/30/2022 9:45 PM EDT) Neutrophil % 63.5 % [facility] Neutrophil Absolute 5.52 1.70 - 6.10 x10(3)/mc L [facility] Lymph % 24.1 % [facility] Lymphocytes Abs 2.1 0.9 - 3.2 x10(3)/mc L [facility] Monocyte % 6.0 % [facility] Monocyte Abs 0.5 0.3 - 0.9 x10(3)/mc L [facility] Eos % 5.4 % [facility] Eosinophils Abs 0.5(H) 0.0 - 0.4 x10(3)/mc L [facility] Basophil % 0.8 % [facility] Baso Absolute 0.1 0.0 - 0.1 x10(3)/[facility] LABORATORY Immature Gran % 0.20 % [facility] Comment: Immature granulocytes(IG's)percentage and absolute count will include metamyelocytes, myelocytes, and promyelocytes. Blood smears from CBCs yielding IG's will be scanned manually for concordance. If this scan disagrees with the automated IG or if promyelocytes are noted, a manual differential will be performed. Immature Gran Absolute 0.02 0.00 - 0.04 x10(3)/[facility] LABORATORY Blood 01/30/2022 9:45 PM EDT 01/30/2022 9:45 PM EDT Narrative Resulting Agency Comment Spec In Lab Les Garcia MD HEMATOLOGY ORD ERABLES [facility] [place] [address] * Hemogram (01/30/2022 9:45 PM EDT) White Blood Cell 8.7 4.0 - 9.5 x10(3)/[facility] LAB[facility] Red Blood Cell 4.62 4.58 - 5.54 x10(6)/[facility] Hemoglobin 14.3 13.7 - 16.5 g/dL [facility] Hematocrit 41.7 40.5 - 48.5 % [facility] Mean Cell Volume 90.3 82.9 - 93.1 fL [facility] Mean Cell Hemoglobin 31.0 27.5 - 32.1 pg [facility] Mean Cell Hemoglobin Concentration 34.3 32.0 - 35.7 g/dL [facility] Platelet 219 145 - 357 x10(3)/[facility] RDW Standard Deviation 42.4 36.0 - 45.0 fL [facility] RDW coefficient of variation 13.0 11.4 - 13.8 % [facility] Mean Platelet Volume 9.8 7.6 - 12.9 fL [facility] NRBC% auto 0.0 % [facility] NRBC Absolute 0.000 0.000 - 0.000 x10(3)/mcL [facility] Blood 01/30/2022 9:45 PM EDT 01/30/2022 9:45 PM EDT Narrative Resulting Agency Comment Spec In Lab Les Garcia MD HEMATOLOGY ORD ERABLES [facility] [place] [address] * Lipid Panel (Reflex Direct LDL) (01/30/2022 9:45 PM EDT) Cholesterol, Total 65 mg/dL [facility] Comment: Lower Risk: <200 mg/dL Average Risk: 200-239 mg/dL Higher Risk: >tc=294 mg/dL Triglyceride 124 mg/dL [facility] Comment: Average Risk/Lower Risk: <150 mg/dL Borderline High Risk: 150-199 mg/dL High Risk: 200-499 mg/dL Very High Risk: >us=026 mg/dL HDL Cholesterol 33 mg/dL [facility] Comment: Males: ?? Higher Risk: <40 mg/dL Females: ?? Higher Risk: <50 mg/dL LDL Cholesterol 7 mg/dL [facility] Comment: Lowest Risk: <100 mg/dL Lower Risk: 100-129 mg/dL Borderline High Risk: 130-159 mg/dL High Risk: 160-189 mg/dL Very High Risk: >ca=266 mg/dL Cholesterol/HDL Ratio 2.0 ratio [facility] Lipid Interpretation See Note [facility] Comment: Lipid management should be guided by a patient? s ASCVD risk, goals and preferences. ACC/AHA Guidelines recommend high intensity statin if clinical ASCVD or LDL greater than or equal to 190 mg/dL. http://tinyurl.com/PNR-BCX-Rxaghwdio Adults aged 40-75 with LDL 70-189 mg/dL should have their 10 year ASCVD risk estimated with the ACC/AHA ASCVD risk ore dryer http://tools.acc.org/VBSUW-Tprw-Vdyosyvet/ Statin should be discussed if risk greater [...] Harrison MD CHEMISTRY ORDERABLES Performing Organization Address [facility] Co de Phone Number [facility] [place] [address] * (ABNORMAL) APTT (01/30/2022 9:45 PM EDT) Partial Thromboplastin Time 20(L) 25 - 37 sec [facility] Comment: Decreased clotting times may be [...] MD HEMATOLOGY ORDERABLE S Performing Organization Address [facility] Co de Phone Number [facility] [place] [address] * (ABNORMAL) Prothrombin Time (01/30/2022 9:45 PM EDT) Prothrombin Time 12.9(H) 9.4 - 12.5 sec [facility] International Normalization Ratio 1.1 [facility] Comment: An INR <2.0 indicates adequate [...] MD HEMATOLOGY ORDERABLE S Performing Organization Address [facility] Co de Phone Number [facility] [place] [address] * (ABNORMAL) Hepatic Function Panel (01/30/2022 9:45 PM EDT) Protein, Total 6.2 6.1 - 8.0 g/dL [facility] Albumin 3.8 3.2 - 5.2 g/dL [facility] Aspartate Aminotransferase 17 0 - 39 unit/L [facility] Alanine Aminotransferase 19 0 - 55 unit/L [facility] Alkaline Phosphatase 61 40 - 130 unit/L [facility] Bilirubin, Total 2.4(H) 0.2 - 1.3 mg/dL [facility] Bilirubin, Direct 0.2 0.0 - 0.3 mg/dL [facility] Blood 01/30/2022 9:45 PM EDT 01/30/2022 9:45 PM EDT Narrative Resulting Agency Comment Spec In Lab Niru Harrison MD CHEMISTRY ORDERABLES Performing Organization Address [facility] Co de Phone Number [facility] [place] [address] * (ABNORMAL) pro-Brain Natriuretic Peptide (01/30/2022 9:45 PM EDT) NT-proBNP 4,113(H) <=124 pg/mL [facility] Blood 01/30/2022 9:45 PM EDT 01/30/2022 9:45 PM EDT Narrative Resulting Agency Comment Spec In Lab Niru Harrison MD CHEMISTRY ORDERABLES Performing Organization Address City/[facility]/ZIP Co de Phone Number [facility] [place] [address] * TSH (01/30/2022 9:45 PM EDT) Thyroid Stimulating Hormone 3.44 0.27 - 4.20 mcIU/mL [facility] Comment: Reference Interval (mcIU/mL): Females: ??First Trimester: 0.23-3.88 ??Second Trimester: 0.22-3.90 ??Third Trimester: 0.44-4.66 Blood 01/30/2022 9:45 PM EDT 01/30/2022 9:45 PM EDT Narrative Resulting Agency Comment Spec In Lab Niru Harrison MD CHEMISTRY ORDERABLES Performing Organization Address [facility] Co de Phone Number [facility] [place] [address] * Phosphorus (01/30/2022 9:45 PM EDT) Phosphorus 3.3 2.5 - 4.5 mg/dL [facility] Blood 01/30/2022 9:45 PM EDT 01/30/2022 9:45 PM EDT Narrative Resulting Agency Comment Spec In Lab Niru Harrison MD CHEMISTRY ORDERABLES Performing Organization Address [facility] Co de Phone Number [facility] [place] [address] * (ABNORMAL) Magnesium (01/30/2022 9:45 PM EDT) Magnesium 0.68(L) 0.69 - 1.07 mmol/L [facility] Blood 01/30/2022 9:45 PM EDT 01/30/2022 9:45 PM EDT Narrative Resulting Agency Comment Spec In Lab Niru Harrison MD CHEMISTRY ORDERABLES [facility] [place] [address] * (ABNORMAL) Basic Metabolic Panel (non-fasting) (01/30/2022 9:45 PM EDT) Glucose 177 65 - 199 mg/dL [facility] Comment:Diabetes: >=200 mg/d L plus symptoms Blood Urea Nitrogen 23(H) 10 - 20 mg/dL [facility] Creatinine 1.87(H) 0.80 - 1.50 mg/dL [facility] Sodium 144 135 - 145 mmol/L [facility] Potassium 3.6 3.5 - 5.0 mmol/L [facility] Comment: Please note: ??Patients with WBC >100,000 may have falsely elevated Potassium levels. ??For accurate Potassium quantification in these patients send serum separator tube (gold top) for subsequent determinations. ??Contact the Clinical Chemistry Laboratory if there are any questions. Chloride 106 98 - 107 mmol/L [facility] Carbon Dioxide 23 22 - 31 mmol/L [facility] Anion Gap 15 5 - 15 mmol/L [facility] Calcium 9.0 8.5 - 10.5 mg/dL [facility] Est Glomerular Filtration Rate 37(L) >=60 mL/min/1. 73 m?? [facility] Comment: This patient's estimated [...] In Lab Niru Harrison MD CHEMISTRY ORDERABLES [facility] [place] [address] * EKG 12 Lead (01/30/2022 7:53 PM EDT) Ventricular rate 95 BPM MUSE SYSTEM Atrial Rate 277 BPM MUSE SYSTEM QRS Duration 108 ms MUSE SYSTEM Q-T Interval 398 ms MUSE SYSTEM QTC Calculated (Bezet) 500 ms MUSE SYSTEM Calculated R Colstrip -58 degrees MUSE SYSTEM Calculated T Colstrip 72 degrees MUSE SYSTEM INTERPRETATION Atrial flutter with variable A-V block with premature ventricular or aberrantly conducted complexes Left anterior fascicular block Minimal voltage criteria for LVH, may be normal variant ( Verner product ) Prolonged QTc Abnormal ECG When compared with ECG of 14-MAR-2021 15:13, Atrial flutter has replaced Sinus rhythm Vent. rate has increased BY ??35 BPM qtc has lengthened Confirmed by MD Robin, Cinda ([id number]) on 01/31/2022 4:01:28 PM MUSE SYSTEM 01/30/2022 7:53 PM EDT 01/31/2022 4:01 PM EDT Niru Harrison MD ECG ORDERABLES MUSE SYSTEM documented in this encounter Visit Diagnoses Diagnosis Atrial fibrillation with RVR - had flutter initially, then fib Atrial fibrillation Sinus pause Other heart block Bradycardia Other specified cardiac dysrhythmias Atrial fibrillation with RVR Atrial fibrillation Tachy-roman syndrome Sinoatrial node dysfunction Tachy-roman syndrome Sinoatrial node dysfunction documented in this encounter Admitting Diagnoses Diagnosis Tachy-roman syndrome Sinoatrial node dysfunction documented in this encounter Administered Medications Inactive Administered Medications - up to 3 most recent administrations Medication Order MAR Action Action Date Dose Rate Site acetaminophen (Tylenol) tablet 650 mg 650 mg, Oral, EVERY 4 HOURS PRN, Starting on Thu01/31/22 at 1416, Until Thu02/01/22 at 1812, Pain, Fever, Mild to moderate [...] Given 01/30/2022 8:59 PM EDT 40 mg BUpivacaine (pf) (Marcaine) (5 mg/mL) 0.5% injection 150 mg 150 mg (30 mL), Subcutaneous, ONCE, 1 dose, On Thu01/31/22 at 1130, EP (Intra-Procedure), Routine Given 01/31/2022 12:07 PM EDT 150 mg calciTRIoL (Rocaltrol) capsule 0.5 mcg 0.5 mcg, Oral, DAILY, First dose on Thu01/31/22 at 0900, Until Discontinued, Routine Given 02/01/2022 8:35 AM EDT 0.5 mcg Given 01/31/2022 8:41 AM EDT 0.5 mcg ceFAZolin (Ancef) 2 g in dextrose 5% 100 mL infusion 2 g, Intravenous, ONCE, 1 dose, On Thu01/31/22 at 1130, Administer over 30 Minutes, For use in the electrophysiology lab (EP lab) only for procedural sedation with direct provider supervision and verbal order., EP (Intra-Procedure), Indication for (Active or Suspected): Prophylaxis New Bag 01/31/2022 11:40 AM EDT 2 g 200 mL/hr dextrose 10% infusion 250 mL, at 1,000 [...] Given 02/01/2022 11:32 AM EDT 6 Units levothyroxine (Synthroid) tablet 137 mcg 137 mcg, Oral, DAILY, First dose on Thu01/31/22 at 0600, Until Discontinued, Routine Given 02/01/2022 5:57 AM EDT 137 mcg Given 01/31/2022 5:03 AM EDT 137 mcg lidocaine (Xylocaine) (20 mg/mL) 2% injection 400 mg 400 mg (20 mL), Subcutaneous, ONCE, 1 dose, On Thu01/31/22 at 1130, EP (Intra-Procedure), Routine Given 01/31/2022 12:07 PM EDT 400 mg magnesium sulfate 2 g in sterile water 50 mL infusion 2 g, Intravenous, ONCE, 1 dose, On Thu01/31/22 at 0000, Administer over 120 Minutes New Bag 01/31/2022 12:05 AM EDT 2 g 25 mL/hr magnesium sulfate 2 g in sterile water [...] magnesium of 0.5 - 0.64 mMol/L. metoprolol (LOPRESSOR) 5 mg/5 mL injection 1 dose, Starting on Thu01/31/22 at 1536, Until Thu01/31/22 at 1545, SIGRID MOSS: cabinet override metoprolol (LOPRESSOR) injection 5 mg 5 mg, Intravenous, EVERY 5 MIN PRN, Starting on Thu01/31/22 at 1528, Until Thu01/31/22 at 1546, Elevated Heart Rate, HR Given 01/31/2022 3:45 PM EDT 5 mg metoprolol tartrate (Lopressor) tablet 12.5 mg 12.5 mg, Oral, EVERY 6 HOURS SCHEDULED, First dose on Thu01/31/22 at 1800, Until Discontinued, Hold for SBP <90, Routine Given 02/01/2022 11:32 AM EDT 12.5 mg Given 02/01/2022 5:57 AM EDT 12.5 mg Given 01/31/2022 11:49 PM EDT 12.5 mg mycophenolate (Cellcept) capsule 250 mg 250 mg, Oral, 2 TIMES DAILY, First dose on Thu01/30/22 at 2100, Until Discontinued, DO NOT CRUSH OR OPEN, Routine Given 02/01/2022 8:36 AM EDT 250 mg Given 01/31/2022 8:53 PM EDT 250 mg Given 01/31/2022 8:41 AM EDT 250 mg potassium chloride ER (K-Dur/Klor-Con) tablet 40 mEq 40 mEq, Oral, EVERY 4 HOURS, 2 doses, First dose on Thu01/31/22 at 0000, Last dose on Thu01/31/22 at 0400, 20 mEq tablet may be dissolved in water for administration, Routine Given 01/31/2022 5:02 AM EDT 40 mEq Given 01/31/2022 12:06 AM EDT 40 mEq sodium chloride 0.9 % (flush) (BD PosiFlush [...] Until Discontinued, Routine 0841 (Given - Provider: Sigrid Moss, JADEN)1117 ([facility] Hold - Provider: Admin Adt - Reason: Transfer to a Procedural area)1403 ([facility] Unhold - Provider: Admin Adt) 0836 (Given - Provider: Richard Lobo, JADEN) aspirin EC tablet 81 mg 81 mg, Oral, DAILY, First dose (after last modification) on Thu01/30/22 at 204, Until Discontinued, Routine 2104 (Given - Provider: Carmela Alicia, JADEN) 0841 (Given - Provider: Sigrid Moss, JADEN)1117 ([facility] Hold - Provider: Admin Adt - Reason: Transfer to a Procedural area)1403 ([facility] Unhold - Provider: Admin Adt) 0836 (Given - Provider: Richard Lobo, JADEN) atorvastatin (Lipitor) tablet 40 mg 40 mg, Oral, EVERY EVENING, First dose on Thu01/30/22 at 2030, Until Discontinued, Routine 2058 (Given - Provider: Carmela Alicia, JADEN) 1117 ([facility] Hold - Provider: Admin Adt - Reason: Transfer to a Procedural area)1403 ([facility] Unhold - Provider: Admin Adt)1702 (Given - Provider: Sigrid Moss, JADEN) BUpivacaine (pf) (Marcaine) (5 mg/mL) 0.5% injection 150 mg (COMPLETED) 150 mg (30 mL), Subcutaneous, ONCE, 1 dose, On Thu01/31/22 at 1130, EP (Intra-Procedure), Routine 1207 (Given - Provider: Steffen Mora RN) calciTRIoL (Rocaltrol) capsule 0.5 mcg 0.5 mcg, Oral, DAILY, First dose on Thu01/31/22 at 0900, Until Discontinued, Routine 0841 (Given - Provider: Sigrid Moss, JADEN)111 ([facility] Hold - Provider: Admin Adt - Reason: Transfer to a Procedural area)1403 ([facility] Unhold - Provider: Admin Adt) 0835 (Given - Provider: Richard Lobo, RN) ceFAZolin (Ancef) 2 g in dextrose 5% 100 mL infusion (COMPLETED) 2 g, Intravenous, ONCE, 1 dose, On Thu01/31/22 at 1130, Administer over 30 Minutes, For use in the electrophysiology lab (EP lab) only for procedural sedation with direct provider supervision and verbal order., EP (Intra-Procedure), Indication for (Active or Suspected): Prophylaxis 1140 (New Bag - Provider: Steffen Mora RN)1210 (Stopped - Provider: Steffen Mora RN) hydrALAZINE (Apresoline) tablet 100 mg 100 mg, Oral, 2 TIMES DAILY, First dose on Thu01/30/22 at 2100, Until Discontinued, Routine 2057 (Given - Provider: Carmela Alicia, JADEN) 0840 (Given - Provider: Sigrid Moss, JADEN)1117 ([facility] Hold - Provider: Admin Adt - Reason: Transfer to a Procedural area)1403 ([facility] Unhold - Provider: Admin Adt)205 (Given - Provider: Sreedhar Arambula, JADEN) 0835 (Given - Provider: Richard Lobo, JADEN) insulin glargine-ygfn (Semglee) (100 unit/mL) subcutaneous injection vial 10 Units 10 Units, Subcutaneous, NIGHTLY, First dose on Thu01/31/22 at 0015, Until Discontinued, Routine 0008 (Given - Provider: Carmela Alicia, JADEN)1117 ([facility] Hold - Provider: Admin Adt [...] mg/dL., Routine 0800 (Not Given - Provider: Sigrid Moss RN - Reason: NPO)1117 ([facility] Hold - Provider: Admin Adt - Reason: Transfer to a Procedural area)1200 (Not Given - Provider: Sigrid Moss RN - Reason: NPO)1403 ([facility] Unhold - Provider: Admin Adt)1618 (Given - Provider: Sigrid Moss RN)1742 (Given - Provider: Sigrid Moss RN) 1019 (Given - Provider: Richard [...] parameters not met)0730 (Not Given - Provider: Sigrid Moss RN - Reason: Order parameters not met)1117 ([facility] Hold - Provider: Admin Adt - Reason: Transfer to a Procedural area)1130 (Not Given - Provider: Sigrid Moss RN - Reason: Order parameters not met)1403 ([facility] Unhold - Provider: Admin Adt)1630 (Hold - Provider: Sigrid Moss RN - Reason: See comment - Comment: too close to previous administration)2100 (Not Given - Provider: Sreedhar Arambula RN - Reason: Order parameters not met) 0730 (Not Given - Provider: Shannan Carey RN - Reason: Order parameters not met)1132 (Given - Provider: Richard Lobo RN) levothyroxine (Synthroid) tablet 137 mcg 137 mcg, Oral, DAILY, First dose on Thu01/31/22 at 0600, Until Discontinued, Routine 0503 (Given - Provider: Carmela Alicia RN)1117 ([facility] Hold - Provider: Admin Adt - Reason: Transfer to a Procedural area)1403 ([facility] Unhold - Provider: Admin Adt) 0557 (Given [...] 0005 (New Bag - Provider: Carmela Alicia, RN)0205 (Stopped - Provider: Carmela Alicia RN) metoprolol (LOPRESSOR) injection 5 mg 5 mg, Intravenous, ONCE, 1 dose, On Thu01/31/22 at 1645 1645 (Hold - Provider: Sigrid Moss RN - Reason: See comment - Comment: given prior at 15.45) metoprolol tartrate (Lopressor) tablet 12.5 mg 12.5 mg, Oral, EVERY 6 HOURS SCHEDULED, First dose on Thu01/31/22 at 1800, Until Discontinued, Hold for SBP <90, Routine 1747 (Given - Provider: Sigrid Moss, JADEN)2349 (Given - Provider: Sreedhar Arambula, JADEN) 0557 (Given - Provider: Sreedhar Arambula, JADEN)1132 (Given - Provider: Richard Lobo, RN) mycophenolate (Cellcept) capsule 250 mg 250 mg, Oral, 2 TIMES DAILY, First dose on Thu01/30/22 at 2100, Until Discontinued, DO NOT CRUSH OR OPEN, Routine 2057 (Given - Provider: Carmela Alicia, JADEN) 0841 (Given - Provider: Sigrid Moss, JADEN)111 ([facility] Hold - Provider: Admin Adt - Reason: Transfer to a Procedural area)140 ([facility] Unhold - Provider: Admin Adt)2052 (Given - Provider: Sreedhar Arambula, JADEN) 0836 (Given - Provider: Richard Lobo, JADEN) potassium chloride ER (K-Dur/Klor-Con) tablet 40 mEq (COMPLETED) 40 mEq, Oral, EVERY 4 HOURS, 2 doses, First dose on Thu01/31/22 at 0000, Last dose on Thu01/31/22 at 0400, 20 mEq tablet may be dissolved in water for administration, Routine 000 (Given - Provider: Carmela Alicia, JADEN)0502 (Given - Provider: Carmela Alicia RN) sodium chloride 0.9 % (flush) (BD PosiFlush Normal Saline 0.9) flush 5 mL 5 mL, Intravenous, 2 TIMES DAILY, First dose on Thu01/30/22 at 2100, Until Discontinued, Routine 2058 (Given - Provider: Carmlea Alicia, JADEN) 0842 (Given - Provider: Sigrid Moss, JADEN)111 ([facility] Hold - Provider: Admin Adt - Reason: Transfer to a Procedural area)140 ([facility] Unhold - Provider: Admin Adt)2054 (Given - Provider: Sreedhar Arambula, JADEN) 0841 (Given - Provider: Richard Lobo, JADEN) sodium chloride 0.9 % (flush) (BD PosiFlush Normal Saline 0.9) flush 5 mL 5 mL, Intravenous, 2 TIMES DAILY, First dose on Thu01/31/22 at 2100, Until Discontinued, Recovery (Recovery-Hospital Unit), Routine 2100 (Not Given - Provider: Sreedhar Arambula RN - Reason: Order parameters not met) 0840 (Given - Provider: Richard Lobo RN) tacrolimus (Prograf) capsule 1 mg 1 mg, Oral, NIGHTLY, First dose on Laura 01/30/22 at 2100, Until Discontinued, DO NOT SPLIT, CRUSH OR OPEN, Routine 2058 (Given - Provider: Carmela Alicia RN) 111 ([facility] Hold - Provider: Admin Adt - Reason: Transfer to a Procedural area)140 ([facility] Unhold - Provider: Admin Adt)2052 (Given - Provider: Sreedhar Arambula RN) tacrolimus (Prograf) capsule 2 mg 2 mg, Oral, DAILY, First dose on Thu01/31/22 at 0900, Until Discontinued, DO NOT SPLIT, CRUSH OR OPEN, Routine 0840 (Given - Provider: Sigrid Moss RN)111 ([facility] Hold - Provider: Admin Adt - Reason: Transfer to a Procedural area)1403 ([facility] Unhold - Provider: Admin Adt) 0836 (Given - Provider: Richard Lobo RN) tamsulosin (Flomax) capsule 0.4 mg 0.4 mg, Oral, DAILY, First dose on Thu01/31/22 at 0900, Until Discontinued, DO NOT CRUSH OR OPEN, Routine 0841 (Given - Provider: Sigrid Moss RN)111 ([facility] Hold - Provider: Admin Adt - Reason: Transfer to a Procedural area)1403 ([facility] Unhold - Provider: Admin Adt) 0836 (Given - Provider: Richard Lobo RN) PRN Medication Order 01/30/2022 01/31/2022 02/01/2022 acetaminophen [...] (Recovery-Hospital Unit), Routine 1702 (Given - Provider: Sigrid Moss, JADEN)2349 (Given - Provider: Sreedhar Arambula, RN) 0556 (Given - Provider: Sreedhar Arambula, RN)1316 (Given - Provider: Richard Lobo, JADEN) dextrose 10% infusion(Linked Group 2) 250 mL, [...] to induce or maintain moderate sedation per [facility] Moderate Sedation Policy for the duration of the EP procedure., As needed to induce or maintain moderate sedation per [facility] Moderate Sedation Policy for the duration of [...] Mora, JADEN)1204 (Given - Provider: Steffen Mora, JADEN)1216 (Given - Provider: Steffen Mora, JADEN)1222 (Given - Provider: Steffen Mora RN)1241 (Given [...] magnesium of 0.65 - 0.79 mMol/L. 1117 ([facility] Hold - Provider: Admin Adt - Reason: Transfer to a Procedural area)1403 ([facility] Unhold - Provider: Admin Adt) magnesium sulfate [...] Heart Rate, HR 1545 (Given - Provider: Sigrid Moss RN) midazolam (pf) (Versed) (1 mg/mL) injection 0.5-1 mg (CANCELED) 0.5-1 mg, Intravenous, EVERY 5 MIN PRN, Starting on Thu01/31/22 at 1044, Until Thu01/31/22 at 1416, Anxiety, As needed to induce or maintain moderate sedation per [facility] Moderate Sedation Policy for the duration of the EP procedure., As needed to induce or maintain moderate sedation per [facility] Moderate Sedation Policy for the duration of the EP procedure. For use in the electrophysiology lab (EP lab) only for procedural sedation with direct provider supervision and verbal order. RASS goal (-)2 to (-)3. Dose not to exceed 1 mg per dose, 5 mg/hour, or 0.2 mg/kg per case., EP (Intra-Procedure), Routine 1134 (Given - Provider: Steffen Mora RN)1204 (Given - Provider: Steffen Mora RN)1222 (Given - Provider: Steffen Mora RN)1241 (Given - Provider: Steffen Mora RN) nitroGLYcerin (Nitrostat) disintegrating tablet 0.4 mg 0.4 [...] last 24 to 72 hours., Routine 1117 ([facility] Hold - Provider: Admin Adt - Reason: Transfer to a Procedural area)1403 ([facility] Unhold - Provider: Admin Adt) sodium chloride 0.9 % (flush) (BD PosiFlush Normal Saline 0.9) flush 5-20 mL 5-20 mL, Intravenous, EVERY 1 MIN PRN, Starting on Laura 01/30/22 at 1938, Until 02/01/22 at 1812, flush, Flush pertains to all indwelling lines. Flush per protocol found in the job aid using the link provided on this medication record., Routine 1117 ([facility] Hold - Provider: Admin Adt - Reason: Transfer to a Procedural area)1403 ([facility] Unhold - Provider: Admin Adt) [...] MEALS & AT BEDTIME, First occurrence on Laura 01/30/22 at 2320, Until Specified, Consider choosing FOUR [...] mMol/L. documented in this encounter Care Teams [employer] Relationship Specialty Start Date End Date Urbano Denis DO [address] [place] [address] PCP - General 09/03/12 03/17/22 Ruchi Valles RN Nurse Clinic Transplant Surgery 07/30/15 documented as of this encounter
--- OUTSIDE RECORDS SUMMARY | 2024-02-14 11:18 | XMS_ITS | Encounter Summary ---
[facility] Organization [facility] [place] [address] Care Team Providers Care Seed Trucker Name Role Phone Urbano Denis DO Primary Care Provider Encounter Details Date Type Department Care Team (Latest Contact Info) Description 06/19/2021 11:05 AM EST Laboratory Appointment Lab [address] [place] [phone] H/O kidney transplant Social History Tobacco Use [...] AM EDT Hospital Encounter [place] [phone] Arrived documented as of this encounter Goals Goal Patient Goal Type Associated Problems Recent Progress Patient-Stated? Author [facility] Medication Compliance and Understanding Patient Facing Action Plan On track( 017 10:41 AM EDT) No Selena Cisneros [facility] Note: Patient Goal: Clear hepatitis C Timeframe to meet goal: within 12 weeks of therapy documented as of this encounter Procedures Procedure Name Priority Date/Time Associated Diagnosis Comments HC VENIPUNCTURE Routine 06/19/2021 11:27 AM EST H/O kidney transplant HEMOGRAM Routine 06/19/2021 11:27 AM EST H/O kidney transplant DIFFERENTIAL, AUTOMATED Routine 06/19/2021 11:27 AM EST H/O kidney transplant HC [id number] (TACROLIMUS) Routine 11:27 AM EST H/O kidney transplant HC RETIC,AUTO INCLUDES RETHE & IRF Routine 06/19/2021 11:27 AM EST H/O kidney transplant HC CBC,PLT & AUTO DIFF Routine 11:27 AM EST H/O kidney transplant HC URIC ACID, SERUM Routine 06/19/2021 1 1:27 AM EST H/O kidney transplant HC PHOSPHORUS, SERUM Routine 06/19/2021 11:27 AM EST H/O kidney transplant HC MAGNESIUM, SERUM Routine 06/19/2021 1 1:27 AM EST H/O kidney transplant HC CHOLESTEROL Routine 06/19/2021 11:27 AM EST H/O kidney transplant COMPREHENSIVE METABOLIC PANEL Routine 06/19/2021 11:27 AM EST H/O kidney transplant URINALYSIS MICROSCOPIC EXAM Routine 06/19/2021 11:22 AM EST HC CREATININE - NON BLOOD Routine 06/19/2021 11:22 AM EST H/O kidney transplant URINALYSIS WITH REFLEX CULTURE Routine 06/19/2021 11:22 AM EST H/O kidney transplant documented in this encounter Results * Differential, Automated (06/19/2021 11:27 AM EST) Pathologist [facility] Neutrophil % 68.2 % [facility] Neutrophil Absolute 5.47 1.70 - 6.10 x10(3)/[facility] Lymph % 19.1 % [facility] Lymphocytes Abs 1.5 0.9 - 3.2 x10(3)/[facility] Monocyte % 8.2 % [facility] Monocyte Abs 0.7 0.3 - 0.9 x10(3)/[facility] Eos % 3.4 % [facility] Eosinophils Abs 0.3 0.0 - 0.4 x10(3)/[facility] Basophil % 0.9 % [facility] Baso Absolute 0.1 0.0 - 0.1 x10(3)/[facility] Immature Gran % 0.20 % [facility] Comment: Immature granulocytes(IG's)percentage and absolute count will include metamyelocytes, myelocytes, and promyelocytes. Blood smears from CBCs yielding IG's will be scanned manually for concordance. If this scan disagrees with the automated IG or if promyelocytes are noted, a manual differential will be performed. Immature Gran Absolute 0.02 0.00 - 0.04 x10(3)/[facility] Blood 06/19/2021 11:2 7 AM EST 06/19/2021 11:42 AM EST Narrative Resulting Agency Comment Spec In Lab Tal Eagle MD HEMATOLOGY ORDERA BLES [facility] [place] [place] [address] * Hemogram (06/19/2021 11:27 AM EST) Pathologist [facility] White Blood Cell 8.0 4.0 - 9.5 x10(3)/[facility] Red Blood Cell 5.11 4.58 - 5.54 x10(6)/[facility] Hemoglobin 15.6 13.7 - 16.5 g/dL [facility] Hematocrit 45.7 40.5 - 48.5 % [facility] Mean Cell Volume 89.4 82.9 - 93.1 [facility] Mean Cell Hemoglobin 30.5 27.5 - 32.1 pg [facility] Mean Cell Hemoglobin Concentration 34.1 32.0 - 35.7 g/dL [facility] Platelet 249 145 - 357 x10(3)/[facility] RDW Standard Deviation 41.5 36.0 - 45.0 fL [facility] RDW coefficient of variation 12.7 11.4 - 13.8 % [facility] Mean Platelet Volume 9.5 7.6 - 12.9 fL [facility] NRBC% auto 0.0 % [facility] NRBC Absolute 0.000 0.000 - 0.000 x10(3)/[facility] Blood 06/19/2021 11:2 7 AM EST 06/19/2021 11:42 AM EST Narrative Resulting Agency Comment Spec In Lab Tal Eagle MD HEMATOLOGY ORDERA BLES [facility] [place] [address] * Reticulocyte Count (06/19/2021 11:27 AM EST) Reticulocyte % 2.0 0.7 - 2.6 % [facility] Retic Abs # 0.100 0.030 - 0.120 x10(6)/[facility] Immature Retic% 7.0 0.0 - 15.6 % [facility] Reticulated Hgb 35.3 31.3 - 40.2 pg [facility] Blood 06/19/2021 11:2 7 AM EST 06/19/2021 11:42 AM EST Narrative Resulting Agency Comment Spec In Lab Tal Eagle MD HEMATOLOGY ORDERA BLES [facility] [place] [address] * (ABNORMAL) Comprehensive metabolic panel (non-fasting) (06/19/2021 11:27 AM EST) Glucose 109 65 - 199 mg/dL [facility] Comment:Diabetes: >=200 mg/d L plus symptoms Blood Urea Nitrogen 23(H) 10 - 20 mg/dL [facility] Creatinine 1.39 0.80 - 1.50 mg/dL [facility] Sodium 142 135 - 145 mmol/L [facility] Potassium 4.4 3.5 - 5.0 mmol/L [facility] Comment: Please note: ??Patients with WBC >100,000 may have falsely elevated Potassium levels. ??For accurate Potassium quantification in these patients send serum separator tube (gold top) for subsequent determinations. ??Contact the Clinical Chemistry Laboratory if there are any questions. Chloride 105 98 - 107 mmol/L [facility] Carbon Dioxide 29 22 - 31 mmol/L [facility] Anion Gap 8 5 - 15 mmol/L [facility] Calcium 10.0 8.5 - 10.5 mg/dL [facility] Protein, Total 6.9 6.1 - 8.0 g/dL [facility] Albumin 4.2 3.2 - 5.2 g/dL [facility] Aspartate Aminotransferase 19 0 - 39 unit/L [facility] Alanine Aminotransferase 22 0 - 55 unit/L [facility] Alkaline Phosphatase 69 40 - 130 unit/L [facility] Bilirubin, Total 2.5(H) 0.2 - 1.3 mg/dL [facility] Est Glomerular Filtration Rate 50(L) >=60 mL/min/1. 73 m?? [facility] Comment: This patient? s estimated glomerular filtration rate (eGFR) is between 50 mL/min/1.73 m2 (patients with less muscle mass per kg body weight) and 58 mL/min/1.73 m2 (patients with more muscle mass per kg body weight) as determined by the CKD-EPI equation. Assessment of eGFR is not appropriate when creatinine concentrations are rapidly changing. For clinical decisions where creatinine clearance will affect therapy, a 24-hour urine creatinine clearance may be advised. Assignment of CKD stage 1 - 5 for patients with an eGFR near the transition point between stages may be based on clinical assessment of muscle mass and symptoms in addition to eGFR. Blood 06/19/2021 11:2 7 AM EST 06/19/2021 11:42 AM EST Narrative Resulting Agency Comment Spec In Lab Tal Eagle MD CHEMISTRY ORDERAB LES [facility] [place] [address] * Cholesterol, total (06/19/2021 11:27 AM EST) Cholesterol, Total 90 mg/dL [facility] Comment: Lower Risk: <200 mg/dL Average Risk: 200-239 mg/dL Higher Risk: >kv=813 mg/dL Lipid Interpretation See Note [facility] Comment: Lipid management should be guided by a patient? s ASCVD risk, goals and preferences. ACC/AHA Guidelines recommend high intensity statin if clinical ASCVD or LDL greater than or equal to 190 mg/dL. http://[employer]et[employer].com/RRY-BTL-Mwtgynhwh Adults aged 40-75 with LDL 70-189 mg/dL should have their 10 year ASCVD risk estimated with the ACC/AHA ASCVD risk senior construction estimator http://tools.acc.org/IYXDT-Ftzm-Ptbykluom/ Statin should be discussed if risk greater [...] critical component of ASCVD risk reduction. Blood 06/19/2021 11:2 7 AM EST 06/19/2021 11:42 AM EST Narrative Resulting Agency Comment Spec In Lab Tal Eagle MD CHEMISTRY ORDERAB LES Performing Organization Address [facility] de Phone Number [facility] [place] [address] * Magnesium (06/19/2021 11:27 AM EST) Magnesium 0.74 0.69 - 1.07 mmol/L [facility] Blood 06/19/2021 11:2 7 AM EST 06/19/2021 11:42 AM EST Narrative Resulting Agency Comment Spec In Lab Tal Eagle MD CHEMISTRY ORDERAB LES Performing Organization Address [facility] de Phone Number [facility] [place] [address] * Phosphorus (06/19/2021 11:27 AM EST) Phosphorus 2.6 2.5 - 4.5 mg/dL [facility] Blood 06/19/2021 11:2 7 AM EST 06/19/2021 11:42 AM EST Narrative Resulting Agency Comment Spec In Lab Tal Eagle MD CHEMISTRY ORDERAB LES Performing Organization Address [facility] de Phone Number [facility] [place] [address] * Uric acid (06/19/2021 11:27 AM EST) Uric Acid 6.7 3.5 - 8.5 mg/dL [facility] Blood 06/19/2021 11:2 7 AM EST 06/19/2021 11:42 AM EST Narrative Resulting Agency Comment Spec In Lab Tal Eagle MD CHEMISTRY ORDERAB LES Performing Organization Address [facility]/ZIP Co de Phone Number [facility] [place] [address] * Tacrolimus level (06/19/2021 11:27 AM EST) Tacrolimus 5.0 ng/mL [facility] Comment: Trough therapeutic range is 3-15 ng/mL, depending upon transplant type, time since transplantation, use of other 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 drugs, comorbidities, and test method used. Tacrolimus concentration determined using the [employer] Tacrolimus electrochemiluminescence competitive immunoassay. Results from different samples types and methods are not interchangeable. Blood 06/19/2021 11:2 7 AM EST 06/19/2021 11:42 AM EST Narrative Resulting Agency Comment Spec In Lab Tal Eagle MD CHEMISTRY ORDERAB LES Performing Organization Address [facility] Co de Phone Number [facility] [place] [address] * BKV Quant Blood (06/19/2021 11:27 AM EST) Pathologist [facility] BKV Blood Result Not Detected [facility] BKV Blood Interp BK Virus Plasma Result Interpretation Result: BK Virus not detected Specimen type: plasma Assay Range: 2.80-7.80 log copies/mL (6.28x10^2 - 6.28x10^7 copies/mL) Methods: Quantitative real-time polymerase chain reaction (PCR) of viral DNA isolated from plasma was performed using [employer] BKV analyte-specific reagents and the [employer] System that automates both nucleic acid isolation and real-time quantitative PCR. Limitations and Disclaimers: Although unlikely, rare variants or polymorphisms in BKV or related viruses have the potential to interfere with the performance of this test, producing false negative or false positive results. ??When test results are not consistent with other clinical observations or test results, alternative testing may be considered. This test was developed and its performance characteristics determined by the [facility] at [facility]. It has not been cleared or approved by the FDA. The laboratory is regulated under CLIA as qualified to perform high-complexity testing. This test is used for clinical purposes. It should not be regarded as investigational or for research. [facility] Comment: [VERIFIED DATE]06.27.21 Verified By:Kassi Friedman (Electronic Signature) Blood 06/19/2021 11:2 7 AM EST 06/19/2021 2:04 PM EST Narrative Resulting Agency Comment Spec In Lab Tal Eagle MD MOLECULAR ORDERAB LES Performing Organization Address [facility] Co de Phone Number [facility] [place] [address] * Urinalysis Microscopic Exam (06/19/2021 11:22 AM EST) RBC, Urine 2 0 - 3 /HPF [facility] WBC, Urine 0 0 - 3 /HPF [facility] Clean Catch Urine 06/19/2021 11:22 AM EST 06/19/2021 12:04 PM EST Narrative Resulting Agency Comment Spec In Lab Tal Eagle MD URINE ORDERABLES Performing Organization Address [facility] de Phone Number [facility] [place] [address] * (ABNORMAL) Urinalysis with reflex Culture (06/19/2021 11:22 AM EST) Glucose, Urine Dipstick Negative Negative mg/dL [facility] Protein, Urine Dipstick 100(A) Negative mg/dL [facility] Bilirubin, Urine Dipstick Negative Negative mg/dL [facility] Comment: Clinical correlation required for positive Urine Bilirubin results as false positive may occur with some drugs and drug related products. If a false positive is suspected a serum total bilirubin should be considered if clinically indicated. Urobilinogen, Urine Dipstick Normal Normal mg/dL [facility] pH, Urn (dipstick) 6.5 5.0 - 8.0 [facility] Blood, Urine Dipstick Negative Negative mg/dL [facility] Ketone, Urine Dipstick Negative Negative mg/dL [facility] Nitrite, Urine Dipstick Negative Negative [facility] Leukocytes, Urine Dipstick Negative Negative [facility] Appearance, Urine Dipstick Clear Clear [facility] Specific Thor Urine Automated 1.023 1.005 - 1.030 [facility] Color, Urine Dipstick Yellow Yellow [facility] Reflex to Culture No [facility] Clean Catch Urine 06/19/2021 11:22 AM EST 06/19/2021 12:04 PM EST Narrative Resulting Agency Comment Spec In Lab Tal Eagle MD URINE ORDERABLES Performing Organization Address [facility] Co de Phone Number [facility] [place] [address] * (ABNORMAL) Protein/Creatinine Ratio, urine (06/19/2021 11:22 AM EST) Creatinine, Urine 104 mg/dL [facility] Protein, Urine 74(H) 0 - 12 mg/dL [facility] Protein / Creatinine Ratio, Urine 0.7 ratio [facility] Urine 06/19/2021 11:2 2 AM EST 06/19/2021 12:04 PM EST Narrative Resulting Agency Comment Spec In Lab Tal Eagle MD URINE ORDERABLES Performing Organization Address [facility]/ZIP Co de Phone Number [facility] [place] [address] documented in this encounter Visit Diagnoses Diagnosis H/O kidney transplant Kidney replaced by transplant documented in this encounter Care Teams Seed Trucker Relationship Specialty Start Date End Date Urbano Denis DO [address] [place] [address] PCP - General 09/03/12 03/17/22 Ruchi Valles RN Nurse Clinic Transplant Surgery 07/30/15 documented as of this encounter
--- OUTSIDE RECORDS SUMMARY | 2024-02-14 11:18 | XMS_ITS | Encounter Summary ---
[facility] [place] [address] Care Team Providers Care Sales Correspondence Clerk Name Role Phone Adeel Urbano KIRBY Primary Care Provider + [phone] Reason for Visit * Consultation (Routine) - Closed Specialty Diagnoses / Procedures Referred By Humberto flor Referred To Contact Neurology Diagnoses Cerebrovascular accident (CVA), unspecified mechanism Byron Brown MD [facility] [place] [address] Joseph Cortés MD [facility] [place] [place] [address] Referral ID Status Reason Start Date Expiration Date V isits Requested Visits Authorized [id number] Closed Consult, Test & Treat 03/14/2021 03/14/2022 1 1 Encounter Details Date Type Department Care Team (Late st Contact Info) Description 06/19/2021 10:00 AM EST [place] [address] Joseph Cortés MD [facility] [place] [address] 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 Social History Tobacco Use Types Packs/Day Years [...] Sign Reading Time Taken Comments Blood Pressure 139/70 06/19/2021 9:55 AM EST Pulse 88 06/19/2021 9:55 AM EST Temperature - - Respiratory Rate - - Oxygen Saturation - - Inhaled Oxygen Concentration - - Weight 97.5 kg (215 lb) 06/19/2021 9:55 AM EST r eported Height 180.3 cm (5' 11) 06/19/2021 9:55 AM EST reported Body Mass Index 29.99 06/19/2021 9:55 AM EST documented in this encounter Progress Notes * Joseph Cortés MD - 06/19/2021 10:00 AM EST Cerebrovascular Disease and Stroke Program Department of Neurology [place] [id number] t: [phone] / f: [phone] Date of Appointment: 06/19/2021 Patient: Cody Bolden PCP: Urbano Denis DO Consultation Requested By: Byron Brown Md [facility] [place] [address] . HISTORY: This 70 y.o. male is evaluated because of a left basal ganglionic hemorrhage in February. Retired at age 53y. 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 Long hx of BP issues. 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 Seen by Dr Loya and then to Dr Lewis at [facility] and had a kidney biopsy and eventually a transplant in 2016. In 2013 PCP suspected stroke and he had an MRI showing multiple lacunes and saw Dr Rebolledo. February 25 [facility] left basal ganglionic ICH and apixaban and aspirin dc. [place] exhausted and then loopy, went [facility] and then to [facility] Thursday. They dont recall BP issues then. Keptfor 4 days and then went home. BP 228/[address] [facility] Rebolledo saw in April and resumed aspirin. Zio no AF. says he DOESN'T have AF. says still a little slower. Handwriting sloppier since. Missed a Cardiology tele visit (forgot). May 03 [facility] for sigmoid diverticulitis with pain near transplant and endoscopy planned forJanuary. Has a tremor R hand ? Due to Prograf Past Medical History: Diagnosis Date ??? RAY [...] 2 diabetes mellitus ??? Weight increase 08/12/2016 Patient Active Problem List Diagnosis Code ??? Hypertension I10 ??? DJD (degenerative joint disease) M19.90 ??? Hematuria R31.9 ??? CGN (chronic glomerulonephritis) N03.9 ??? Hepatitis C virus infection B19.20 ??? Kidney transplant infection T86.13 ??? Enterococcal bacteremia R78.81, B95.2 ??? Ureteral stricture N13.5 ??? Dehydration E86.0 ??? H/O kidney transplant Z94.0 ??? Aftercare following organ transplant Z48.298 ??? Type 2 diabetes mellitus with complication, without long-term current use of insulin E11.8 ??? CAH (chronic active hepatitis) K73.2 ??? Prophylactic immunotherapy Z29.8 ??? senior care current use of 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 drug Z79.899 ??? Vitamin D deficiency E55.9 ??? Debility R53.81 ??? Pain of right lower extremity M79.604 ??? Obesity (BMI 30.0-34.9) E66.9 ??? Hydronephrosis N13.30 ??? Atrial fibrillation with RVR - had flutter initially, then fib I48.91 ??? Left leg pain M79.605 ??? CAD (coronary artery disease) I25.10 ??? Herniated lumbar intervertebral disc M51.26 ??? Tobacco abuse counseling Z71.6 No Known Allergies Outpatient Medications Marked as Taking for the 06/19/21 encounter (Office Visit) with Joseph Cortés MD Medication Sig Dispense Refill ??? hydrALAZINE (Apresoline) 100 mg Tablet Take 1 tablet by mouth 2 times daily. 180 tablet 3 ??? metoprolol succinate XL (Toprol-XL) 25 mg Tablet Sustained Release 24 hr Take 0.5 tablets by mouth daily. 45 tablet 0 ??? amLODIPine (Norvasc) 2.5 mg Tablet Take 1 tablet by mouth daily. (Patient taking differently: Take 5 mg by mouth daily.) 90 tablet 0 ??? atorvastatin (Lipitor) 40 mg Tablet TAKE ONE TABLET BY MOUTH EVERY EVENING 90 tablet 3 ??? Magnesium Gluconate 27 mg [...] by mouth daily. 180 tablet 2 ??? calciTRIoL (Rocaltrol) 0.5 mcg Capsule Take 1 capsule by mouth daily. 90 capsule 3 ??? tacrolimus (Prograf) 1 mg Capsule TAKE TWO CAPSULES BY MOUTH EVERY MORNING AND ONE CAPSULE NIGHTLY 90 capsule 11 ??? mycophenolate (Cellcept) 250 mg Capsule Take 1 capsule by mouth 2 times daily. 60 capsule 11 ??? glipiZIDE XL (Glucotrol XL) 10 mg [...] Tablet Take 137 mcg by mouth daily. Social History Socioeconomic History ??? Marital status: [...] Last attempt to quit: 01/02/2015 Years since quittin.4 ??? Smokeless tobacco: Never Used ??? Tobacco [...] on file Housing Stability: Not on file I reviewed his social history and he lives with his and has 2 sons. He never smoked tobacco oruse alcohol. Family History Problem Relation Age of Onset ??? Chronic Obstructive Pulmonary Disease Mother ??? Arrhythmia Mother ??? Heart Disease Father No family history of neurologic disease noted. ROS: The following items on the list were endorsed while a complete ROS was obtained: Memory loss, indigestion headache glaucoma transient loss of vision double vision dizziness difficulty speaking weakness of arm/leg numbness of arm/leg unsteadiness walking falls seizures difficulty swallowing memory loss ringing in ears snoring incontinence chest pain palpitations trouble breathing trouble lying flat nausea/vomiting indigestion abdominal pain rashes birthmarks easy bruising miscarriages blood clots in legs (DVT) poor circulation erectile dysfunction depression anxiety joint pains fatigue Stroke:MMAS-4 06/19/2021 MMAS-4 Score 4 (High Adherence) Do you ever forget to take your medication? No Are you careless at times about taking your medicine? No Sometimes, if you feel worse when you take the medicine, do you stop taking it? No When you feel better do you sometimes stop taking your medicine? No Stroke:PROMIS-10 06/19/2021 [id number]-Rhpbaprc Health Score 57.7 Fashcw67-Rizdjw Health Score 59 Health in general Very Good Quality of life Excellent Physical health Very Good Mental health Very Good Satisfaction with social activities Very Good Ability to carry out physical activities Completely Rate of pain 0 -No Pain Rate of fatigue Mild Ability to carry out social activities Very Good Bothered by emotional problems Never X stroke questionnaire responses reviewed EXAM: Patient Vitals for the past 24 hrs: Pulse BP 06/19/21 0955 88 139/70 General: Well appearing patient, nontoxic. Sclerae anicteric. No cervical adenopathy, thyromegaly or carotid/vertebral bruits. No audible wheezing. No edema lower extremities. Heart regular, no murmur. Radial pulses palpable on R and not on L. Neuro: MS--alert, oriented; speech fluent/articulate, no dysarthria, paraphasic errors or jared aphasia; naming, repetition, recall intact. CN--PERRL w/o anisocoria; no ptosis; EOMI; visual pulliam intact to confrontation; facial sensation;facial smile/grimace intact; hearing intact to conversation Motor--No pronator drift; bulk and tone slightly increased at the right wrist. Sens--light touch, temp intact throughout; No DSSE. Coord--FTN and HTS performed w/o dysmetria Gait- gait slightly antalgic Slight slowing on forearm and finger rolling R Taps right fingers like he's fidgety and sometimes looks like a resting tremor. NIH Stroke Scale: (bold applicable choices) NIH Stroke Scale at Initial Evaluation: 1.a. Level of consciousness: 0-Alert 1-Not alert, but arousable with minimal stimulation 2-Not alert, requires repeat stimulation to attend 3-Coma 1.b. Ask patient the month and their age: 0-Answers both correctly 1-Answers one correctly 2-Both incorrect 1.c. Ask patient to open and close eyes: 0-Obeys both correctly 1-Obeys one correctly 2-Both incorrect 2. Best gaze (horizontal eye movement): 0-Normal 1-Partial gaze palsy 2-Forced deviation 3. Visual field testin-No visual field loss 1-Partial hemianopia 2-Complete hemianopia 3-Bilateral hemianopia (blind including cortical blindness) 4. Facial paresis (Ask patient to show teeth or raise eyebrows and close eyes tightly): 0-Normal symmetrical movement 1-Minor paralysis (flattened nasolabial fold, asymmetry on smiling) 2-Partial paralysis (total or near paralysis of lower face) 3-Complete paralysis of one or both sides (absence of facial movement in the upper and lower face) 5. Motor function right arm: 0-Normal (extends arm 90 degrees for 10 seconds without drift) 1-Drift 2-Some effort against gravity 3-No effort against gravity 4-No movement UT-Untestable (Joint fused or limb amputated) 5. Motor function- left arm: 0-Normal (extends arm 90 degrees for 10 seconds without drift) 1-Drift 2-Some effort against gravity 3-No effort against gravity 4-No movement UT-Untestable (Joint fused or limb amputated) 6. Motor function right le-Normal (extends leg 30 degrees for 5 seconds without drift) 1-Drift 2-Some effort against gravity 3-No effort against gravity 4-No movement UT-Untestable (Joint fused or limb amputated) 6. Motor function-left le-Normal (extends leg 30 degrees for 5 seconds without drift) 1-Drift 2-Some effort against gravity 3-No effort against gravity 4-No movement UT-Untestable (Joint fused or limb amputated) 7. Limb ataxia: 0-No ataxia 1-Present in one limb 2-Present in two limbs 8. Sensory (Use pinprick to test arms, legs, trunk and face compare side to side): 0-Normal 1-Mild to moderate decrease in sensation 2-Severe to total sensory loss 9. Best language (describe picture, name items, read sentences): 0-No aphasia 1-Mild to moderate aphasia 2-Severe aphasia 3-Mute 10. Dysarthria (read several words): 0-Normal articulation 1-Mild to moderate slurring of words 2-Near unintelligible or unable to speak UT-Intubated or other physical barrier 11. Extinction and inattention: 0-Normal 1-Inattention or extinction to bilateral simultaneous in one of the sensory modalities 2-Severe ashwini-inattention or ashwini-inattention to more than one modality TOTAL SCORE: 0 DATA: Data and records reviewed: CT February 25 shows the 2 x 3 cm basal ganglionic hemorrhage centered in the putamen just lateral tothe caudate head. Brain MRI from [facility] shows the deep hemorrhage in the putamen and abutting the caudate head. There are extensive dilated perivascular spaces in the basal ganglia bilaterally as well as many microbleed's in the hemispheric subcortical white matter and brainstem CLINICAL IMPRESSION AND RECOMMENDATIONS: This patient presents with a left basal ganglionic hemorrhage in February related to penetrating artery disease while on apixaban and aspirin. Fortunately this parity motor pathways primarily. He is doing well after this. He has extensive imaging evidence of small vessel disease and there is a mixture of lobar and deep microbleeds. His questions whether he had atrial fibrillation or flutter inthe past but this is seen throughout his record. There was no evidence of this on his recent data including a Zio patch recording. For now I would favor holding his anticoagulation but continuing theaspirin. I recommended they do some more home blood pressure monitoring with a different activitiesand at different times of the day but his blood pressure today in clinic was good. ??? Return to clinic as needed. ??? Cc Dr Rebolledo On the day of this encounter, I the medical provider spent a total of at least 50 minutes providingthis patient's care. This includes time spent [id number] with the patient performing evaluation, examination, and counseling . It also includes non [id number]-rz-[id number] time preparing to see the patient, reviewing the chart, coordinating care, and documenting clinical information in the electronic healthrecord. documented in this encounter Plan of Treatment Upcoming Encounters Date Type Department Care Team (Late st Contact Info) Description 04/15/2024 10:00 AM EDT Hospital Encounter Non[place] [address] Arrived Scheduled Referrals Name Type Priority Associated Diagnoses Orde r Schedule Referral to Neurology Outpatient Referral Routine Cerebrovascular accident (CVA), unspecified mechanism Ordered: 03/14/2021 documented as of this encounter Goals Goal Patient Goal Type Associated Problems Recent Progress Patient-Stated? 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
--- OUTSIDE RECORDS SUMMARY | 2024-02-14 11:18 | XMS_ITS | Encounter Summary ---
Author Organization Formerly [facility], [facility] Address [facility] [place] [address] Care Team Providers Care Flow Trader Name Role Phone Adeel Urbano KIRBY Primary Care Provider Reason for Referral * Consultation (Routine) - Closed Specialty Diagnoses / Procedures Referred By Humberto flor Referred To Contact General Surgery Diagnoses Postprandial RUQ pain Hepatitis C virus infection without hepatic coma, unspecified chronicity Gall stones Hepatic steatosis Other complication of kidney transplant Tla Eagle MD [facility] [place] [address] Matt Corea MD [facility] [place] [address] Referral ID Status Reason Start Date Expiration Date V isits Requested Visits Authorized [id number] Closed Consult, Test & Treat 10/22/2021 10/22/2022 1 1 Encounter Details Date Type Department Care Team (Latest Contact Info) Description 10/02/2021 11:20 AM EDT Office Visit [place] [address] Tal Eagle MD [facility] [place] [address] Postprandial RUQ pain; Hepatitis C virus infection without hepatic coma, unspecified chronicity; Gall stones; Hepatic steatosis; Other complication of kidney transplant; Aftercare following organ transplant; Prophylactic immunotherapy Social History Tobacco Use [...] Sign Reading Time Taken Comments Blood Pressure 128/62 10/02/2021 11:27 AM EDT Pulse 60 10/02/2021 11:27 AM EDT Temperature 36.7 ??C (98 ??F) 10/02/2021 11:27 AM EDT Respiratory Rate - - Oxygen Saturation - - Inhaled Oxygen Concentration - - Weight 102.5 kg (226 lb) 10/02/2021 11:27 AM EDT Height - - Body Mass Index 31.52 06/19/2021 9:55 AM EST documented in this encounter Progress Notes * Tal Eagle MD - 10/02/2021 11:20 AM EDT Transplant Nephrology Clinic Follow up Note? PATIENT:??Cody Bolden? :??1950 [place]: 10/08/2020 ? 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 History of Present Illness: ?? Interim hx reveals Yash had two admissions in the last year: CVA 09/2020 (Dr. Cortés) and diverticulitis 03/2021 (see [facility]). He has no residual defects. Has seen Dr. Brown via telehealth and his cardiomuopathy has improved and he seems stable now. Previously rec'd both COVID shots (09/12 and 10/03/20) and since the last time he was seen his 3rd:05/11/2021 - [facility]; today he rec'd an updated pneumovax 23 injection. We have no record of him ever receiving a Prevnar. His major complaint is post prandial RUQ [...] hepatitis) 08/25/2016 ??? Prophylactic immunotherapy 09/22/2016 ??? 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 Vitamin D deficiency 09/20/2017 ??? Debility 10/05/2017 ??? Pain of right lower extremity 10/05/2017 ??? Obesity (BMI 30.0-34.9) 11/10/2017 ??? Hydronephrosis 06/16/2018 ??? Atrial fibrillation with RVR - had flutter initially, then fib 01/31/2019 ??? Left leg pain 05/30/2019 ??? CAD (coronary artery disease) 11/24/2019 ??? Herniated lumbar intervertebral disc 05/10/2020 ??? Tobacco abuse counseling 10/08/2020 Resolved Ambulatory Problems Diagnosis Date Noted ??? [...] UP TO 1 HR PHY OR OTH TH CARE PROV N/A 05/10/2020 FLUOROSCOPY (WRVU 0.17) performed by Joseph Ang MD at [facility] OR ??? PRO ANASTOMOSIS, AV, ANY SITE Left 05/09/2015 AV FISTULA CREATION, DIRECT HEMODIALYSIS, ANY SITE, EG ASHWINI FISTULA UPPER EXTREMITY performed by Que Amaro MD at [facility] MA[facility] OR ??? PRO CYSTOURETHROSCOPY, URETER CATHETER Left 06/17/2018 CYSTO, RETROGRADE, URETEROPYELOGRAPHY (WRVU 2.37) performed by Edinson Grider III, MD at [facility] ??? PRO LAMINEC/FACETECT/FORAMIN, LUMBAR 1 SEG N/A 05/10/2020 LAMINECTOMY, FACETECTOMY & FORAMINOTOMY,LUMBAR, ONE LEVEL (WRVU 15.37) performed by Joseph Ang MD at [facility] OR ??? PRO LAMINOTOMY, LUMBAR DISK, 1 INTRSP N/A 05/10/2020 LAMINOTOMY, DECOMPRESSION, FORAMINOTOMY, LUMBAR (WRVU 13.18) performed by Joseph Ang MD at [facility] OR ??? PRO MICROSURG TECHNIQUES, REQ OPER MICROSCOPE N/A 05/10/2020 MICROSCOPE USE (WRVU 3.46) performed by Joseph Ang MD at [facility] OR ??? PRO REIMPLANT URETER, SINGLE URETER Left 05/20/2016 @URETERONEOCYSTOSTOMY ANASTOMOSIS OF SINGLE URETER TO BLADDER performed by Santosh Arredondo MD at [facility] OR ??? PRO REIMPLANT URETER, SINGLE URETER N/A 05/20/2016 @URETERONEOCYSTOSTOMY ANASTOMOSIS OF SINGLE URETER TO BLADDER performed by Que Amaro MD at [facility] OR ??? PRO TOTAL KNEE ARTHROPLASTY Right 11/25/2017 TOTAL KNEE ARTHROPLASTY (WRVU 20.72) performed by Breezy Dale MD at [facility] OR ??? PRO TRANSPLANT, PREP CADAVER RENAL GRAFT N/A 09/16/2015 @PREPARATION CADAVERIC RENAL ALLOGRAFT performed by Franko Larkin MD at [facility] OR ??? PRO TRANSPLANTATION OF KIDNEY N/A 09/16/2015 @KIDNEY TRANSPLANT, WITHOUT RECIPIENT NEPHRECTOMY performed by Franko Larkin MD at [facility] OR ??? TISSUE TRANSFER kidney ??? US RENAL TRANSPLANT LEFT Left 01/31/2019 US Renal Transplant Left 01/31/2019 [facility] RAD ULTRASOUND ??? US RENAL TRANSPLANT LEFT Left 02/07/2019 US Renal Transplant Left 02/07/2019 [facility] RAD ULTRASOUND ?? Current Outpatient Medications: ??? metoprolol succinate XL (Toprol-XL) 25 mg Tablet Sustained Release 24 hr, TAKE ONE TABLET BY MOUTH EVERY DAY (Patient taking differently: Take 12.5 mg by mouth daily.), Disp: 90 tablet, Rfl: 2 ??? hydrALAZINE (Apresoline) 100 mg Tablet, Take 1 tablet by mouth 2 times daily., Disp: 180 tablet, Rfl: 3 ??? amLODIPine (Norvasc) 2.5 mg Tablet, Take 1 tablet by mouth daily. (Patient taking differently: Take 5 mg by mouth daily.), Disp: 90 tablet, Rfl: 0 ??? atorvastatin (Lipitor) 40 mg Tablet, TAKE ONE TABLET BY MOUTH EVERY EVENING, Disp: 90 tablet, Rfl: 3 ??? Magnesium Gluconate 27 mg magnesium (500 mg) Tablet, TAKE TWO TABLETS BY MOUTH EVERY MORNING, ONE TABLET AT NOON, AND TWO TABLETS EVERY EVENING, Disp: 450 tablet, Rfl: 3 ??? ascorbic acid, Vitamin C, (Vitamin C) 500 mg Tablet, Take 1 tablet by mouth 3 times daily., Disp: 270 tablet, Rfl: 2 ??? multivitamin with minerals and lutein Tablet, Take 2 tablets by mouth daily., Disp: 180 tablet,Rfl: 2 ??? calciTRIoL (Rocaltrol) 0.5 mcg Capsule, Take 1 capsule by mouth daily., Disp: 90 capsule, Rfl: 3 ??? glipiZIDE XL (Glucotrol XL) 10 mg [...] by mouth daily., Disp: , Rfl: ??? tacrolimus (Prograf) 1 mg Capsule, TAKE TWO CAPSULES BY MOUTH EVERY MORNING AND ONE CAPSULE NIGHTLY, Disp: 90 capsule, Rfl: 11 ??? mycophenolate (Cellcept) 250 mg Capsule, Take 1 capsule by mouth 2 times daily., Disp: 60 capsule, Rfl: 11 ?? No Known Allergies? Immunization History Administered Date(s) Administered ??? Hepatitis B Vaccine, unspecified formulation 04/16/2015, 05/14/2015, 06/20/2015 ??? Influenza PF, Split 06/04/2012, 05/26/2013, 04/07/2015, 08/03/2017 ??? Influenza PF, Split (High Dose) 04/23/2016 ??? Influenza Vaccine PF, Quadrivalent (6-35 Mos) 04/04/2015 ??? Pneumococcal Polyvalent 23 06/20/2014, 04/11/2015, 10/03/2021 [...] for diabetics, every 5 for non diabetics [place] kidney ultrasound looking for renal cell CA, [...] EXAM: Vitals Flowsheet Row Office Visit from 10/02/2021 in Solid Organ Transplant at [place] Weight 102.5 kg (226 lb) Temp 36.7 ??C (98 ??F) Temp src Oral Heart Rate 60 BP 128/62 Patient Position Sitting Appearance - Alert, Comfortable. Skin - No exanthem. HEENT - Sclera white. Mucous membranes moist. Chest: Lungs clear to ausculatation w/o wheezes/ rhonchi/ crackles. Heart - S1 and S2 clear w/o murmur, gallop, or rub. JVP not elevated. Abd - Soft. + BS. No bruit. Non tender. Ext - Warm. No cyanosis. No dependent edema. Neuro - No asterixis. ? Labs obtained at [facility]: 09/10/21 Creat 1.4 Ca 9.3 Lipid profile normal except tgd 178 TB 3.1 K 3.1 tCO2 30 Mg 1.6 Liver enzymes normal Tac trough (nottrue trough) 12.1 25-OH Vit D3 27 hgbA1c 6.7 Urine bili neg Urine P/C 1.11 hgb 15.5 IMPRESSION/ RECOMMENDATIONS:??Mr. Bolden is a??71?yr old gentleman w/ hx of kidney transplant who presents to clinic for??his annual??f/u after receiving A DDKTx 09/2015 Transplant Status -s/p donor kidney transplant 6 yr post; with proteinuria > 1.0 gm/day -Creatinine stable?? -Drinks??2L??fluids/day ?? PTDM -Patient now has PTDM treatment and is under care with his??PCP??and on Glipizide Needs better dietary control still ? Immunosuppression -Prograf, Cellcept ?? Proteinuria Likely [place] kidney involvement, no nephrosis ? PO4/Mg - Kphos.??2 tabs bid - Magnesium??gluconate [id number] TID ?? Erythrocytosis -??cont' to observe No need of RAAS inhibition , continue hydration Close follow up? Hypertension: BP is??stable;??not on antihypertensive Encourage to check BP at home?? -??on??Flomax ? Hepatitis C -on Harvoni?treatment -Viral load undetectable after treatment??in June 2018? CV disease, AF/Afib Followed by Dr. Brown Hyperbilirubinemia Known gall stones and hepatic steatosis with normal liver enzymes in past TB then 2.5 no assessment for pancreatitis But abdominal signs and symptoms transient Suggested evaluation by Dr. Corea for possible cholecystectomy or watchful waiting in anticipation of progression ? [id number] labs f/u in??September 2022 ?? ? Discussion with the patient and/or family concerned the following: ?Diagnostic results or recommended studies ?Prognosis; ?Risks and benefits of management; ?Instructions for management; ?Compliance with treatment; ?Risk factor reduction; ?Patient and family education. ? Total time?25 of 30 min??in direct face to face college and career counselor. documented in this encounter Plan of Treatment Upcoming Encounters Date Type Department Care Team (Late st Contact Info) Description 04/15/2024 10:00 AM EDT Hospital Encounter Non-Invasive [place] [address] Arrived Scheduled Referrals Name Type Priority Associated Diagnoses Orde r Schedule Referral to General Surgery Outpatient Referral Routine Postprandial RUQ pain Hepatitis C virus infection without hepatic coma, unspecified chronicity Gall stones Hepatic steatosis Other complication of kidney transplant Ordered: 10/22/2021 documented as of this encounter Goals Goal Patient Goal Type Associated Problems Recent Progress Patient-Stated? Author DH Home Medication Compliance and Understanding Patient Facing Action Plan On track( 017 10:41 AM EDT) No Selena Cisneros, [facility] Note: Patient Goal: Clear hepatitis C Timeframe to meet goal: within 12 weeks of therapy documented as of this encounter Visit Diagnoses Diagnosis Postprandial RUQ pain Abdominal pain, right upper quadrant Hepatitis C virus infection without hepatic coma, unspecified chronicity Gall stones Calculus of gallbladder without mention of cholecystitis or obstruction Hepatic steatosis Other chronic nonalcoholic liver disease Other complication of kidney transplant Aftercare following organ transplant Prophylactic immunotherapy Need for prophylactic immunotherapy documented in this encounter Care Teams Flow Trader Relationship Specialty Start Date End Date Urbano Denis DO [address] [place] [address] PCP - General 09/03/12 03/17/22 Ruchi Valles RN Nurse Clinic Transplant Surgery 07/30/15 documented as of this encounter
--- OUTSIDE RECORDS SUMMARY | 2024-02-14 11:18 | XMS_ITS | Encounter Summary ---
Author Organization [facility] [place] [address] Care Team Providers Care Grease Buffer Name Role Phone Urbano Denis DO Primary Care Provider [phone] Encounter Details Date Type Department Care Team (Late Contact Info) Description 01/20/2022 Notes Only [place] [address] Anabella Bright Social History Tobacco Use Types [...] encounter Progress Notes * Anabella Bright - 01/20/2022 12:40 PM EDT PA Needed: Medication: Tacrolimus and Mycophenolate Insurance: An[employer] Medicare Advantage Phone: Registered Nurse Surgical Services: [employer] Reference #: Tacrolimus [id number] and Mycophenolate [id number] Outcome: Approved under part B side of benefit - this plan manages both part B and D, therefore letter indicates denied under part D BUT approved under B. documented in this encounter Plan of Treatment Upcoming Encounters Date Type Department Care Team (Late Contact Info) Description 04/15/2024 10:00 AM EDT Hospital Encounter Non-Invasive [place] [phone] Arrived documented as of this encounter Goals Goal Patient Goal Type Associated Problems Recent Progress Patient-Stated? Author DH Home Medication Compliance and Understanding Patient Facing Action Plan On track( 017 10:41 AM EDT) Selena Scott, [facility] Note: Patient Goal: Clear hepatitis C Timeframe to meet goal: within 12 weeks of therapy documented as of this encounter Visit Diagnoses Not on filedocumented in this encounter Care Teams Grease Buffer Relationship Specialty Start Date End Date Urbano Denis DO [address] [place] [address] PCP - General 09/03/12 03/17/22 Ruchi Valles RN Nurse Clinic Transplant Surgery 07/30/15 documented as of this encounter
--- OUTSIDE RECORDS SUMMARY | 2024-02-14 11:18 | XMS_ITS | Encounter Summary ---
Author [facility] [address] Care Team Providers Care Temporary Help Agency Referral Clerk Name Role Phone Urbano Denis DO Primary Care Provider [phone] Encounter Details Date Type Department Care Team (Late st Contact Info) Description 09/16/2021 External Results [place] [id number] Social History Tobacco Use Types Packs/Day Years [...] AM EDT Hospital Encounter Non-Invasive [place] [address] Arrived documented as of this encounter Goals Goal Patient Goal Type Associated Problems Recent Progress Patient-Stated? Author [facility] Medication Compliance and Understanding Patient Facing Action Plan On track( 017 10:41 AM EDT) No Selena Cisneros, [facility] Note: Patient Goal: Clear hepatitis C Timeframe to meet goal: within 12 weeks of therapy documented as of this encounter Procedures Procedure Name Priority Date/Time Associated Diagnosis Comments LAB SCAN Routine 09/10/2021 documented in this encounter Results * Scan Doc: Lab (09/10/2021) Historical Provider MD PAIZ MGR SCAN EX T ORDR/RSLT documented in this encounter Visit Diagnoses Not on filedocumented in this encounter Care Teams Temporary Help Agency Referral Clerk Relationship Specialty Start Date End Date Urbano Denis DO [address] [place] [address] [address] [place] [address] PCP - General 09/03/12 03/17/22 Ruchi Valles RN Nurse Clinic Transplant Surgery 07/30/15 documented as of this encounter
--- OUTSIDE RECORDS SUMMARY | 2024-02-14 11:18 | XMS_ITS | Encounter Summary ---
Author Organization [facility] [place] [address] Care Team Providers Care Employee Health Nurse Name Role Phone AdeelUrbano toscano Primary Care Provider [phone] Encounter Details Date Type Department Care Team (Late st Contact Info) Description 01/30/2022 12:20 PM EDT Ancillary Procedure [place] [address] Nik Light MD [facility] [place] [address] Social History Tobacco Use Types Packs/Day Years [...] AM EDT Hospital Encounter [place] [address] Arrived documented as of this encounter Goals Goal Patient Goal Type Associated Problems Recent Progress Patient-Stated? Author [facility] Medication Compliance and Understanding Patient Facing Action Plan On track( 017 10:41 AM EDT) Selena Scott, [facility] Note: Patient Goal: Clear hepatitis C Timeframe to meet goal: within 12 weeks of therapy documented as of this encounter Procedures Procedure Name Priority Date/Time Associated Diagnosis Comments FILM LIBRARY STORAGE ONLY DX CHEST Routine 01/30/2022 12:16 PM EDT documented in this encounter Results * Film Library- Storage Only DX Chest (01/30/2022 12:16 PM EDT) Narrative [facility] - 01/30/2022 12:16 PM EDT This exam is auto-finalizing. It's purpose is for storage only. Nik Light MD IMG FILM LIBRARY ORD ERABLES [place] documented in this encounter Visit Diagnoses Not on filedocumented in this encounter Care Teams Employee Health Nurse Relationship Specialty Start Date End Date Urbano Denis DO [address] [place] [address] PCP - General 09/03/12 03/17/22 Ruchi Valles RN Nurse Clinic Transplant Surgery 07/30/15 documented as of this encounter
--- OUTSIDE RECORDS SUMMARY | 2024-02-14 11:18 | XMS_ITS | Encounter Summary ---
Author Organization [facility] Address [facility] [place] [address] Care Team Providers Care Planer Hand Name Role Phone Adeel Urbano KIRBY Primary Care Provider [phone] Encounter Details Date Type Department Care Team (Late st Contact Info) Description 02/03/2022 Notes Only Cardiology at [address] [place] [address] Niru Reyes MD [facility] [place] [address] Social History Tobacco Use Types Packs/Day Years [...] as of this encounter Progress Notes * Niru Reyes MD - 02/03/2022 4:46 PM EDTSummary: addendum to discharge summary history of renal transplant ?? mycophenolate (Cellcept) capsule 250 mg oral 2 times daily tacrolimus (Prograf) capsule 1 mg oral nightly ?He is on medications to prevent rejection ? - documented in this encounter Plan of Treatment Upcoming Encounters Date Type Department Care Team (Late st Contact Info) Description 04/15/2024 10:00 AM EDT Hospital Encounter Non-Invasive [place] [address] Arrived documented as of this encounter Goals Goal Patient Goal Type Associated Problems Recent Progress Patient-Stated? Author DH Home Medication Compliance and Understanding Patient Facing Action Plan On track( 017 10:41 AM EDT) Selena Scott, [facility] Note: Patient Goal: Clear hepatitis C Timeframe to meet goal: within 12 weeks of therapy documented as of this encounter Visit Diagnoses Not on filedocumented in this encounter Care Teams Planer Hand Relationship Specialty Start Date End Date Urbano Denis DO [address] [place] [address] PCP - General 09/03/12 03/17/22 Ruchi Valles RN Nurse Clinic Transplant Surgery 07/30/15 documented as of this encounter
--- OUTSIDE RECORDS SUMMARY | 2024-02-14 11:18 | XMS_ITS | Encounter Summary ---
Author Organization [facility] Address [facility] [place] [address] Care Team Providers Care Operating Room Rn Name Role Phone Urbano Denis DO Primary Care Provider [phone] Reason for Visit * Reason Comments Establish Care * Consultation (Routine) - Closed Specialty Diagnoses / Procedures Referred By Humberto flor Referred To Contact General Surgery Diagnoses Postprandial RUQ pain Hepatitis C virus infection without hepatic coma, unspecified chronicity Gall stones Hepatic steatosis Other complication of kidney transplant Tal Eagle MD [facility] [place] [address] Matt Corea MD [facility] [place] [address] Referral ID Status Reason Start Date Expiration Date V isits Requested Visits Authorized [id number] Closed Consult, Test & Treat 10/22/2021 10/22/2022 1 1 Encounter Details Date Type Department Care Team (Late st Contact Info) Description 12/05/2021 11:00 AM EDT Office Visit General Surgery at [place] [phone] Sandra Davis MD [facility] [place] [address] Asymptomatic gallstones Social History Tobacco Use Types Packs/Day Years [...] Sign Reading Time Taken Comments Blood Pressure 137/64 12/05/2021 11:00 AM EDT Pulse 54 12/05/2021 11:00 AM EDT Temperature 36.1 ??C (97 ??F) 12/05/2021 11:00 AM EDT Respiratory Rate 16 12/05/2021 11:00 AM EDT Oxygen Saturation 99% 12/05/2021 11:00 AM EDT Inhaled Oxygen Concentration - - Weight 102.7 kg (226 lb 8 oz) 12/05/2021 11:00 A M EDT Height 180.3 cm (5' 10.98) 12/05/2021 11:00 AM EDT Body Mass Index 31.6 12/05/2021 11:00 AM EDT documented in this encounter Progress Notes * Sandra Davis MD - 12/05/2021 11:00 AM EDT Cody Bolden is a 71 y.o. male referred by Tal Eagle MD for consideration for cholecystectomy. 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 He developed LLQ pain in March and was treated for diverticulitis. He denies any current or past RUQ pain, but will have occasional heartburn that improves with PPI. His notices occasional jaundice. . He has a long history of known gallstones, documented on RUQ US in 2018. A gallstone was redemonstrated on CT on 04/04/2021. There was no biliary dilation. He has chronic indirect hyperbilirubinemia (~2 range). Past Medical History: Patient Active Problem List Diagnosis Code ??? Hypertension I10 ??? DJD (degenerative joint disease) M19.90 ??? Hematuria R31.9 ??? CGN (chronic glomerulonephritis) N03.9 ??? Hepatitis C virus infection B19.20 ??? Other complication of kidney transplant T86.19 ??? Enterococcal bacteremia R78.81, B95.2 ??? Ureteral stricture N13.5 ??? Dehydration E86.0 ??? H/O kidney transplant Z94.0 ??? Aftercare following organ transplant Z48.298 ??? Type 2 diabetes mellitus with complication, without long-term current use of insulin E11.8 ??? CAH (chronic active hepatitis) K73.2 ??? Prophylactic immunotherapy Z29.8 ??? MCC current use of 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 drug Z79.899 ??? Vitamin D deficiency E55.9 ??? Debility R53.81 ??? Pain of right lower extremity M79.604 ??? Obesity (BMI 30.0-34.9) E66.9 ??? Hydronephrosis N13.30 ??? Atrial fibrillation with RVR - had flutter initially, then fib I48.91 ??? Left leg pain M79.605 ??? CAD (coronary artery disease) I25.10 ??? Herniated lumbar intervertebral disc M51.26 ??? Tobacco abuse counseling Z71.6 ??? Postprandial RUQ pain R10.11 ??? Gall stones K80.20 LVEF 59% Brain bleed on eliquis, now just on aspirin. Past Surgical History: Procedure Laterality Date ??? JOINT REPLACEMENT new right knee ??? PRG FLUOROSCOPY EXAM UP TO 1 HR [facility] PROV N/A 05/10/2020 FLUOROSCOPY (WRVU 0.17) performed by Joseph Ang MD at [facility] MAIN OR ??? PRO ANASTOMOSIS, AV, ANY SITE Left 05/09/2015 AV FISTULA CREATION, DIRECT HEMODIALYSIS, ANY SITE, EG ASHWINI FISTULA UPPER EXTREMITY performed by Que Amaro MD at [facility] MAIN OR ??? PRO CYSTOURETHROSCOPY, URETER CATHETER Left 06/17/2018 CYSTO, RETROGRADE, URETEROPYELOGRAPHY (WRVU 2.37) performed by Edinson Grider III, MD at [facility] ??? PRO LAMINEC/FACETECT/FORAMIN, LUMBAR 1 SEG N/A 05/10/2020 LAMINECTOMY, FACETECTOMY & FORAMINOTOMY,LUMBAR, ONE LEVEL (WRVU 15.37) performed by Joseph Ang MD at [facility] OR ??? PRO LAMINOTOMY, LUMBAR DISK, 1 INTRSP N/A 05/10/2020 LAMINOTOMY, DECOMPRESSION, FORAMINOTOMY, LUMBAR (WRVU 13.18) performed by Joseph Ang MD at [facility] OR ??? PRO MICROSURG TECHNIQUES, REQ OPER MICROSCOPE N/A 05/10/2020 MICROSCOPE USE (WRVU 3.46) performed by Joseph Ang MD at [facility] OR ??? PRO REIMPLANT URETER, SINGLE URETER Left 05/20/2016 @URETERONEOCYSTOSTOMY ANASTOMOSIS OF SINGLE URETER TO BLADDER performed by Santosh Arredondo MD at [facility] OR ??? PRO REIMPLANT URETER, SINGLE URETER N/A 05/20/2016 @URETERONEOCYSTOSTOMY ANASTOMOSIS OF SINGLE URETER TO BLADDER performed by Que Amaro MD at [facility] OR ??? PRO TOTAL KNEE ARTHROPLASTY Right 11/25/2017 TOTAL KNEE ARTHROPLASTY (WRVU 20.72) performed by Breezy Dale MD at [facility] OR ??? PRO TRANSPLANT, PREP CADAVER RENAL GRAFT N/A 09/16/2015 @PREPARATION CADAVERIC RENAL ALLOGRAFT performed by Franko Larkin MD at [facility] OR ??? PRO TRANSPLANTATION OF KIDNEY N/A 09/16/2015 @KIDNEY TRANSPLANT, WITHOUT RECIPIENT NEPHRECTOMY performed by Franko Larkin MD at [facility] OR ??? TISSUE TRANSFER kidney ??? US RENAL TRANSPLANT LEFT Left 01/31/2019 US Renal Transplant Left 01/31/2019 [facility] RAD ULTRASOUND ??? US RENAL TRANSPLANT LEFT Left 02/07/2019 US Renal Transplant Left 02/07/2019 [facility] RAD ULTRASOUND Bilateral inguinal hernia repair - many years ago Current Outpatient Medications: ??? aspirin EC 81 mg Tablet, Delayed Release (E.C.), Take 81 mg by mouth daily., Disp: , Rfl: ??? calciTRIoL (Rocaltrol) 0.5 mcg Capsule, TAKE ONE CAPSULE BY MOUTH EVERY DAY, Disp: 90 capsule, Rfl: 3 ??? tacrolimus (Prograf) 1 mg Capsule, TAKE TWO CAPSULES BY MOUTH EVERY MORNING AND ONE CAPSULE NIGHTLY, Disp: 90 capsule, Rfl: 11 ??? mycophenolate (Cellcept) 250 mg Capsule, Take 1 capsule by mouth 2 times daily., Disp: 60 capsule, Rfl: 11 ??? metoprolol succinate XL (Toprol-XL) 25 [...] mouth daily., Disp: 180 tablet,Rfl: 2 ??? glipiZIDE XL (Glucotrol XL) 10 [...] mcg by mouth daily., Disp: , Rfl: Allergies: Patient has no known allergies. Family History: Family History Problem Relation Age of Onset ??? Chronic Obstructive Pulmonary Disease Mother ??? Arrhythmia Mother ??? Heart Disease Father Social History: reports that he has been smoking cigars. He has been smoking about 0.00 packs per day for the past 30.00 years. He has never used smokeless tobacco. He reports current drug use. Frequency: 7.00 timesper week. Drug: Marijuana. He reports that he does not drink alcohol. Cigar 0-4 or 5 a day. No etoh Review of Systems: Review of systems is negative for any unexplained weight loss or weight gain. He denies any cough, chest pain or shortness on breath on exertion. Bowel and bladder elimination is normal. All other system reviews are negative. BP 137/64 Pulse 54 Temp 36.1 ??C (97 ??F) Resp 16 Ht 180.3 cm (5' 10.98) Wt 102.7 kg (226 lb 8 oz) SpO2 99% BMI 31.60 kg/m?? On physical examination, this is a well appearing male. There is no scleral or skin icterus. Mucousmembranes are moist. pupils reactive. His lungs are clear to auscultation. Heart is regular, rate, and rhythm and without murmurs. His abdomen is nontender and without palpable masses. Well healed midline and left flank incision. His extremity and neurological exam are grossly normal. Impression. Asymptomatic longstanding gallstones and chronic indirect bilirubinemia, non obstructive in nature (possibly due to Gilbert's disease?). The majority of this visit was spent discussing the nature of his gallstone disease and reasons forconsidering laparoscopic cholecystectomy including eliminating current symptoms and preventing future complications. Given his lack of symptoms, I don't currently see an indication for surgery. He will contact me in the future if his symptoms change, in which case we could reconsider cholecystectomy at that time. documented in this encounter Plan of Treatment Upcoming Encounters Date Type Department Care Team (Late st Contact Info) Description 04/15/2024 10:00 AM EDT Hospital Encounter [place] [address] Arrived documented as of this encounter Goals Goal Patient Goal Type Associated Problems Recent Progress Patient-Stated? Author [facility] Home Medication Compliance and Understanding Patient Facing Action Plan On track( 017 10:41 AM EDT) Selena Scott, [facility] Note: Patient Goal: Clear hepatitis C Timeframe to meet goal: within 12 weeks of therapy documented as of this encounter Visit Diagnoses Diagnosis Asymptomatic gallstones Calculus of gallbladder without mention of cholecystitis or obstruction documented in this encounter Care Teams Operating Room Rn Relationship Specialty Start Date End Date Urbano Denis DO [address] [place] [address] PCP - General 09/03/12 03/17/22 Ruchi Valles RN Nurse Clinic Transplant Surgery 07/30/15 documented as of this encounter
--- OUTSIDE RECORDS SUMMARY | 2024-02-14 11:18 | XMS_ITS | Encounter Summary ---
[place] [address] Care Team Providers Care Web Developer Programmer Name Role Phone AdeelUrbano Primary Care Provider Encounter Details Date Type Department Care Team (Late st Contact Info) Description 01/30/2022 [place] [address] Social History Tobacco Use Types Packs/Day Years [...] AM EDT Hospital Encounter Non-Invasive [place] [address] Arrived documented as of this encounter Goals Goal Patient Goal Type Associated Problems Recent Progress Patient-Stated? Author Home Medication Compliance and Understanding Patient Facing Action Plan On track( 017 10:41 AM EDT) No Selena Cisneros [facility] Note: Patient Goal: Clear hepatitis C Timeframe to meet goal: within 12 weeks of therapy documented as of this encounter Procedures Procedure Name Priority Date/Time Associated Diagnosis Comments ECG SCAN Routine 01/30/2022 documented in this encounter Results * Scan Doc: ECG (01/30/2022) Historical Provider MD PAIZ MGR SCAN EX T ORDR/RSLT documented in this encounter Visit Diagnoses Not on filedocumented in this encounter Care Teams Web Developer Programmer Relationship Specialty Start Date End Date Urbano Denis DO [address] [place] [address] [address] [place] [address] PCP - General 09/03/12 03/17/22 Ruchi Valles RN Nurse Clinic Transplant Surgery 07/30/15 documented as of this encounter
--- OUTSIDE RECORDS SUMMARY | 2024-02-14 11:18 | XMS_ITS | Encounter Summary ---
Author Organization [facility] [place] [address] Care Team Providers Care Power House Control Room Operator Name Role Phone AdeelUrbano toscano Primary Care Provider [phone] Reason for Visit * Reason Onset Date Comments Medication Refill 10/04/2021 Encounter Details Date Type Department Care Team (Late st Contact Info) Description 10/04/2021 Refill Solid [place] [phone] Tal Eagle MD [facility] [place] [address] Other complication of kidney transplant; Prophylactic immunotherapy [...] AM EDT Hospital Encounter Non-Invasive [place] [phone] Arrived documented as of this encounter Goals Goal Patient Goal Type Associated Problems Recent Progress Patient-Stated? Author [facility] Medication Compliance and Understanding Patient Facing Action Plan On track( 017 10:41 AM EDT) Selena Scott, [facility] Note: Patient Goal: Clear hepatitis C Timeframe to meet goal: within 12 weeks of therapy documented as of this encounter Visit Diagnoses Diagnosis Other complication of kidney transplant Prophylactic immunotherapy Need for prophylactic immunotherapy documented in this encounter Care Teams Power House Control Room Operator Relationship Specialty Start Date End Date Urbano Denis DO [address] [place] [address] [address] [facility] [address] [place] [address] PCP - General 09/03/12 03/17/22 Ruchi Valles RN Nurse Clinic Transplant Surgery 07/30/15 documented as of this encounter
--- OUTSIDE RECORDS SUMMARY | 2024-02-14 11:18 | XMS_ITS | Encounter Summary ---
Author Organization [facility] Address [facility] [place] [address] Care Team Providers Care Electronics Lead Name Role Phone AdeelUrbano Primary Care Provider [phone] Encounter Details Date Type Department Care Team (Late st Contact Info) Description 01/30/2022 Telephone Cardiology at [address] [phone] Sandra Aleman PA [facility] [address] Social History Tobacco Use Types Packs/Day Years [...] encounter Miscellaneous Notes * Telephone Encounter - Sandra Aleman PA - 01/30/2022 2:28 PM EDT Images from the original note were not included. 01/30/2022 Cody Bolden Initial Contact Date: 01/30/2022 Initial contact time: 2:29 PM Referring Provider: Rosetta SEN Patient Location: 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 About 3 weeks ago he was started on metoprolol 25mg for atrial fibrillation. Since he has had 2 subsequent visits to the ER for palpitations and lightheadedness. Today he presents with worsening symptoms. Continues withpre- syncope symptoms, no syncopal episodes. Telemetry showed HR as low as 22 with 2- 3 second pausesthen returned to 50s. Symptoms are associated with the bradycardia episodes. Continues to have these episodes, about 13-14 since in the ER over the last 4 hours. BP stable. Last dose of metoprolol succinate 25mg was this morning. On exam appears volume up. OF note, treated 3 weeks ago for PNA. Provider already spoke with transplant team and EP. Requesting transfer for PPM. Pertinent Diagnostic Findings: Telemetry with evidence of tachy-sakina syndrome Troponin negative Cr up from 1.5 to 1.9 Magnesium 1.5 ProBNP 5,500 CXR looked ok Past cardiac studies: TTE 12/20/20 SUMMARY: 1. Mild concentric left ventricular hypertrophy is observed.The left ventricle is probably normal in size.There is normal global left ventricular systolic function.The quantitative left ventricular ejection fraction by biplane Elizabeth's method is 59%.There are no left ventricular segmental wall motion abnormalities.Assessment of diastolic function is indeterminate. 2. Right ventricular chamber size, wall thickness, and systolic function are within normal limits.The estimated pulmonary artery systolic pressure is 22 mmHg. plus RAP 3. The left atrium is moderately dilated.The right atrium is mildly dilated. 4. There is mild aortic valve stenosis.The mean trans-valvular gradient across the aortic valve is 11 mmHg. DI=0.51, SHANIA 1.95cm2. 5. See remainder of report for additional findings. 6. Compared to the prior studies the left ventricular global and regional wall motion has normalized. 7. (The technology driving the wall motion diagram is not functioning. Disregard the picture. There are no regional wall motion abnormalities on today's study) OSH Interventions: Spoke with transplant team- 40 Lasix IV and 1g magnesium (Mag level 1.5) Assessment & Plan: Cody Bolden is a 71 y.o. male with a history of atrial flutter (Eliquis previously stopped due to ICH), ASCVD s/p PCI 2019, ICH 02/2021 and 01/2022, HTN, transplant kidney in setting of DM who presented to OSH with pre-syncope symptoms. Found to be in persistent atrial fibrillation with both tachycardia and bradycardia consistent with tachy-sakina syndrome. Spoke with EP Dr. Vargas who agrees and requests patient be transferred for PPM evaluation. Last metoprolol succinate 25mg dose this AM.Replacing magnesium, otherwise electrolytes ok. Concern for CHF, given Lasix 40mg IVP. Renal transplant team notified of RAY. Patient accepted for transfer today for EP evaluation for PPM. The above recommendations were based on my discussion with Dr. Vargas and Rosetta SEN; I have not personally interviewed or examined this patient. I encouraged Rosetta SEN to contact us if there is any change in symptoms, decision-making, orfurther need for guidance in management. Sandra Aleman PA-C Cardiovascular Medicine Pager [phone] 01/30/2022 documented in this encounter Plan of Treatment Upcoming Encounters Date Type Department Care Team (Late st Contact Info) Description 04/15/2024 10:00 AM EDT Hospital Encounter Non-[place] [address] Arrived documented as of this encounter Goals [...] on filedocumented in this encounter Care Teams Electronics Lead Relationship Specialty Start Date End Date Urbano Denis DO [address] [place] [address] PCP - General 09/03/12 03/17/22 Hai STANLEY,Ruchi Nurse Clinic Transplant Surgery 07/30/15 documented as of this encounter
--- OUTSIDE RECORDS SUMMARY | 2024-02-14 11:18 | XMS_ITS | Encounter Summary ---
Author Organization [facility] [place] [address] Care Team Providers Care Convention Planner Name Role Phone Adeel Urbano KIRBY Primary Care Provider [phone] Reason for Visit * Reason Comments Medication Refill Encounter Details Date Type Department Care Team (Late st Contact Info) Description 10/28/2021 Refill Solid [place] [address] Tal Eagle MD [facility] [place] [address] Social History Tobacco Use Types Packs/Day Years [...] AM EDT Hospital Encounter Non[place] [address] Arrived documented as of this encounter Goals [...] on filedocumented in this encounter Care Teams Convention Planner Relationship Specialty Start Date End Date Urbano Denis DO [address] [place] [address] PCP - General 09/03/12 03/17/22 Ruchi Valles RN Nurse Clinic Transplant Surgery 07/30/15 documented as of this encounter
--- OUTSIDE RECORDS SUMMARY | 2024-02-14 11:18 | XMS_ITS | Encounter Summary ---
[place] [address] Care Team Providers Care Ship'S Surveyor Name Role Phone Adeel Urbano KIRBY Primary Care Provider [phone] Encounter Details Date Type Department Care Team (Late st Contact Info) Description 06/21/2021 Telephone [place] [phone] Devi Preciado Social History Tobacco Use Types Packs/Day Years [...] AM EDT Hospital Encounter Non-Invasive [place] [phone] Arrived documented as of this encounter Goals Goal Patient Goal Type Associated Problems Recent Progress Patient-Stated? Author [facility] Medication Compliance and Understanding Patient Facing Action Plan On track( 017 10:41 AM EDT) No Selena Cisneros, [facility] Note: Patient Goal: Clear hepatitis C Timeframe to meet goal: within 12 weeks of therapy documented as of this encounter Visit Diagnoses Not on filedocumented in this encounter Care Teams Ship'S Surveyor Relationship Specialty Start Date End Date Urbano Denis DO [address] [place] [address] [address] [facility] [address] [place] [address] PCP - General 09/03/12 03/17/22 Ruchi Valles RN Nurse Clinic Transplant Surgery 07/30/15 documented as of this encounter
--- OUTSIDE RECORDS SUMMARY | 2024-02-14 11:18 | XMS_ITS | Encounter Summary ---
Author Organization [facility] [address] Care Team Providers Care Bead Wire Taper Name Role Phone AdeelUrbano toscano Primary Care Provider [phone] Reason for Visit * Reason Onset Date Comments Medication Refill 01/14/2022 Atorvastatin Encounter Details Date Type Department Care Team (Late st Contact Info) Description 01/14/2022 Refill Cardiology at [address] [phone] Byron Brown MD [facility] [place] [address] Medication Refill (Atorvastatin) Social History Tobacco Use Types Packs/Day Years [...] AM EDT Hospital Encounter Non-Invasive [place] [phone] Arrived documented as of this encounter Goals Goal Patient Goal Type Associated Problems Recent Progress Patient-Stated? Author [facility] Medication Compliance and Understanding Patient Facing Action Plan On track( 017 10:41 AM EDT) Selena Scott, [facility] Note: Patient Goal: Clear hepatitis C Timeframe to meet goal: within 12 weeks of therapy documented as of this encounter Visit Diagnoses Diagnosis Coronary artery disease Coronary atherosclerosis of unspecified type of vessel, lime or graft documented in this encounter Care Teams Bead Wire Taper Relationship Specialty Start Date End Date Urbano Denis DO [address] [place] [address] [address] [facility] [address] [place] [address] PCP - General 09/03/12 03/17/22 Ruchi Valles RN Nurse Clinic Transplant Surgery 07/30/15 documented as of this encounter
--- OUTSIDE RECORDS SUMMARY | 2024-02-14 11:18 | XMS_ITS | Encounter Summary ---
Author Organization [facility] [place] [address] Care Team Providers Care Broodmare Barn Groom Name Role Phone Urbano Denis DO Primary Care Provider [phone] Encounter Details Date Type Department Care Team (Late st Contact Info) Description 01/10/2022 [place] [phone] Javi Gamez MD [facility] [place] [address] Social History Tobacco Use Types Packs/Day Years [...] encounter Miscellaneous Notes * Telephone Encounter - Javi Gamez MD - 01/10/2022 6:50 PM EDT Telephone Triage Note Initial contact date: 01/10/2022 Initial contact time: 6:51 PM Received a telephone call from the transfer center regarding Cody Bolden, a 71 y.o. 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 He was seen by Dr. Cortés from neurology in follow up for ICH. Per provider Dyan Easton at [facility], the patient presented with mild dizziness, was found to be in atrial fibrillation, and primary team is requesting consultation for permission to hold off on anticoagulation in setting of atrial fibrillation with history of ICH on Eliquis. His symptoms are mild and team is not looking to transfer or cardiovert at this time. Vital signs 36.3, HR 73, bp 151/108, RR 17, O2 97% RA. Scanned EKG demonstrates probably atrial flutter with variable conduction, no acute ST/T abnormalities. Discussed with primary team who are looking for consultation only for permission to discharge on noanticoagulation. At this time in setting of history of intracranial hemorrhage it is reasonable to currently hold off on anticoagulation as risk of the therapy likely outweighs benefit. Team is looking to set up follow up appointment with Dr. Brown and it appears from his previous note that he is overdue for follow up. Will route to Dr. Brown to make him aware as well as our scheduling team for outpatient appointment. Relevant imaging: CT February 25 shows the 2 x 3 cm basal ganglionic hemorrhage centered in the putamen just lateral to the caudate head. Brain MRI from [facility] shows the deep hemorrhage in the putamen and abutting the caudate head. There are extensive dilated perivascular spaces in the basal ganglia bilaterally as well as many microbleed's in the hemispheric subcortical white matter and brainstem These recommendations are limited by inability to personally examine or speak with patient at the time of triage. Primary team at outside hospital is in full agreement with plan and is aware to call should troponin increase, patient clinically worsen, or with any other questions or concerns. documented in this encounter Plan of Treatment Upcoming Encounters Date Type Department Care Team (Late st Contact Info) Description 04/15/2024 10:00 AM EDT Hospital Encounter Non-Invasive [place] [address] Arrived documented as of this encounter Goals Goal Patient Goal Type Associated Problems Recent Progress Patient-Stated? Author Home Medication Compliance and Understanding Patient Facing Action Plan On track( 017 10:41 AM EDT) Selena Scott, [facility] Note: Patient Goal: Clear hepatitis C Timeframe to meet goal: within 12 weeks of therapy documented as of this encounter Visit Diagnoses Not on filedocumented in this encounter Care Teams Broodmare Barn Groom Relationship Specialty Start Date End Date Urbano Denis DO [address] [place] [address] PCP - General 09/03/12 03/17/22 Ruchi Valles RN Nurse Clinic Transplant Surgery 07/30/15 documented as of this encounter
--- OUTSIDE RECORDS SUMMARY | 2024-02-14 11:19 | XMS_ITS | Encounter Summary ---
Author Organization [facility] [place] [address] Care Team Providers Care Backend Python Developer Name Role Phone Adeel Urbano KIRBY Primary Care Provider [phone] Reason for Visit * Reason Comments Medication Refill Encounter Details Date Type Department Care Team (Late st Contact Info) Description 10/23/2020 Refill Solid [place] [address] Tal Eagle MD [facility] [place] [address] Social History Tobacco Use Types Packs/Day Years [...] AM EDT Hospital Encounter Non-Invasive [place] [address] Arrived documented as of this encounter Goals Goal Patient Goal Type Associated Problems Recent Progress Patient-Stated? Author Home Medication Compliance and Understanding Patient Facing Action Plan On track( 017 10:41 AM EDT) Selena Scott, [facility] Note: Patient Goal: Clear hepatitis C Timeframe to meet goal: within 12 weeks of therapy documented as of this encounter Visit Diagnoses Not on filedocumented in this encounter Care Teams Backend Python Developer Relationship Specialty Start Date End Date Urbano Denis DO [address] [place] [address] PCP - General 09/03/12 03/17/22 Ruchi Valles RN Nurse Clinic Transplant Surgery 07/30/15 documented as of this encounter
--- OUTSIDE RECORDS SUMMARY | 2024-02-14 11:19 | XMS_ITS | Encounter Summary ---
Author Organization [facility] [place] [address] Care Team Providers Care Personal Companion Name Role Phone Urbano Denis DO Primary Care Provider Encounter Details Date Type Department Care Team (Late st Contact Info) Description 08/21/2020 Telephone Solid [place] [phone] Marisela Metcalf, RN Social History Tobacco Use [...] Telephone Encounter - Marisela Metcalf RN - 08/21/2020 8:31 AM EST Pt Mara called in to report pt's K-Phos is no longer covered by insurance and they are unableto afford the monthly cost. I reviewed pt's labs; last Phos level was 3.4 in June; January 2.7. As pt's levels have been in the normal range we could consider reducing dose and increasing phosphorus in pt's diet. Mara reports pt has about 2 weeks worth on hand at this time. I recommended reducing from 2 tablets BID to 1 tablet BID; repeat labs in 1 month if Phosphorus remains stable can discontinue the medication. I also requested Jolene our dietitian follow up with Mara and Yash to dicuss high phosphorus foods. documented in this encounter Plan of Treatment Upcoming Encounters Date Type Department Care Team (Late st Contact Info) Description 04/15/2024 10:00 AM EDT Hospital Encounter Non[place] [address] Arrived documented as of this encounter Goals Goal Patient Goal Type Associated Problems Recent Progress Patient-Stated? Author DH Home Medication Compliance and Understanding Patient Facing Action Plan On track( 017 10:41 AM EDT) Selena Scott, [facility] Note: Patient Goal: Clear hepatitis C Timeframe to meet goal: within 12 weeks of therapy documented as of this encounter Visit Diagnoses Not on filedocumented in this encounter Care Teams Personal Companion Relationship Specialty Start Date End Date Urbano Denis DO [address] [place] [address] PCP - General 09/03/12 03/17/22 Ruchi Valles RN Nurse Clinic Transplant Surgery 07/30/15 documented as of this encounter
--- OUTSIDE RECORDS SUMMARY | 2024-02-14 11:19 | XMS_ITS | Encounter Summary ---
Author Organization [facility] Address [facility] [place] [address] Care Team Providers Care Tele Grout Sewer Line Repairer Name Role Phone AdeelUrbano toscano Primary Care Provider Reason for Visit * Reason Onset Date Comments Medication Refill 08/21/2020 Encounter Details Date Type Department Care Team (Late st Contact Info) Description 08/21/2020 Refill [place] [address] Tal Eagle MD [facility] [place] [address] Social History Tobacco Use Types Packs/Day Years [...] AM EDT Hospital Encounter Non-[place]vasive [place] [address] Arrived documented as of this encounter Goals Goal Patient Goal Type Associated Problems Recent Progress Patient-Stated? Author [facility] Medication Compliance and Understanding Patient Facing Action Plan On track( 017 10:41 AM EDT) Selena Scott, [facility] Note: Patient Goal: Clear hepatitis C Timeframe to meet goal: within 12 weeks of therapy documented as of this encounter Visit Diagnoses Not on filedocumented in this encounter Care Teams Tele Grout Sewer Line Repairer Relationship Specialty Start Date End Date Urbano Denis DO [address] [place] [address] [address] [facility] [address] [place] [address] PCP - General 09/03/12 03/17/22 Ruchi Valles RN Nurse Clinic Transplant Surgery 07/30/15 documented as of this encounter
--- OUTSIDE RECORDS SUMMARY | 2024-02-14 11:19 | XMS_ITS | Encounter Summary ---
Author Organization [facility] [place] [address] Care Team Providers Care Individual Small Group Instructor Name Role Phone Adeel Urbano KIRBY Primary Care Provider [phone] Reason for Visit * Reason Comments Medication Refill Encounter Details Date Type Department Care Team (Late st Contact Info) Description 01/17/2021 Refill [place] [address] Tal Eagle MD [facility] [place] [address] Social History Tobacco Use Types Packs/Day Years [...] AM EDT Hospital Encounter Non-[place]vasive [place] [address] Arrived documented as of this encounter Goals Goal Patient Goal Type Associated Problems Recent Progress Patient-Stated? Author Home Medication Compliance and Understanding Patient Facing Action Plan On track( 017 10:41 AM EDT) Selena Scott, [facility] Note: Patient Goal: Clear hepatitis C Timeframe to meet goal: within 12 weeks of therapy documented as of this encounter Visit Diagnoses Not on filedocumented in this encounter Care Teams Individual Small Group Instructor Relationship Specialty Start Date End Date Urbano Denis DO [address] [place] [address] PCP - General 09/03/12 03/17/22 Ruchi Valles RN Nurse Clinic Transplant Surgery 07/30/15 documented as of this encounter
--- OUTSIDE RECORDS SUMMARY | 2024-02-14 11:19 | XMS_ITS | Encounter Summary ---
[place] [address] Care Team Providers Care Senior Category Manager Name Role Phone Urbano Denis DO Primary Care Provider Reason for Referral * Diagnostic Test (Routine) - Closed Specialty Diagnoses / Procedures Referred By Contac t Referred To Contact Cardiology Diagnoses Atrial fibrillation with RVR Procedures Jeffrey 48 Hrs-15 Days Byron Brown MD [facility] [place] [address] [facility] [place] [address] Referral ID Status Reason Start Date Expiration Date V isits Requested Visits Authorized [id number] Closed Specialty Service Requested 03/15/2021 05/13/2021 1 1 Reason for Visit * Diagnostic Test (Routine) - Closed Specialty Diagnoses / Procedures Referred By Contac t Referred To Contact Cardiology Diagnoses Atrial fibrillation with RVR Procedures Jeffrey 48 Hrs-15 Days Byron Brown MD [facility] [place] [address] [facility] [place] [address] Referral ID Status Reason Start Date Expiration Date V isits Requested Visits Authorized [id number] Closed Specialty Service Requested 03/15/2021 05/13/2021 1 1 Encounter Details Date Type Department Care Team (Late st Contact Info) Description 03/14/2021 4:00 PM EDT - 03/14/2021 11:59 PM EDT Hospital Encounter Non-Invasive Cardiology Lab [place] [address] Byron Brown MD [facility] [place] [address] Atrial fibrillation with RVR - had flutter initially, then fib; Atrial fibrillation with RVR Discharge Disposition: Home Social History Tobacco Use [...] Sig Dispensed Refills Start Date End Date ascorbic acid, Vitamin C, (Vitamin C) 500 [...] Tablet Take 137 mcg by mouth daily. hydrALAZINE (Apresoline) 100 mg Tablet Take 100 mg by mouth 2 times daily. 03/01/2021 03/19/2021 atorvastatin (Lipitor) 40 mg TabletIndications:Coron wali artery disease TAKE ONE TABLET BY MOUTH EVERY EVENING 90 tablet 3 01/28/2021 01/14/2022 Magnesium Gluconate 27 mg magnesium (500 mg) Tablet TAKE TWO TABLETS BY MOUTH EVERY MORNING, ONE TABLET AT NOON, AND TWO TABLETS EVERY EVENING 450 tablet 3 01/20/2021 02/13/2022 calciTRIoL (Rocaltrol) 0.5 mcg Capsule Take 1 capsule by mouth daily. 90 capsule 3 10/08/2020 10/28/2021 tacrolimus (Prograf) 1 mg Capsule TAKE TWO CAPSULES BY MOUTH EVERY MORNING AND ONE CAPSULE NIGHTLY 90 capsule 11 10/08/2020 10/04/2021 mycophenolate (Cellcept) 250 mg Capsule Take 1 capsule by mouth 2 times daily. 60 capsule 11 10/08/2020 10/04/2021 metoprolol succinate XL (Toprol-XL) 25 mg Tablet Sustained Release 24 hrIndications:Atrial fibrillation with RVR Take 1 tablet by mouth daily. 90 tablet 1 08/16/2020 03/19/2021 amLODIPine (Norvasc) 2.5 mg Tablet Take 10 mg by mouth daily. 03/19/2021 documented as of this encounter Plan of Treatment Upcoming Encounters Date Type Department Care Team (Late st Contact Info) Description 04/15/2024 10:00 AM EDT Hospital Encounter Non-[place] [address] Arrived documented as of this encounter Goals [...] Procedure Name Priority Date/Time Associated Diagnosis Comments ZIOPATCH 48 HRS-15 DAYS Routine 03/14/2021 4:13 PM EDT Atrial fibrillation with RVR documented in this encounter Results * Ziopatch 48 Hrs-15 Days (03/14/2021 4:13 PM EDT) Anatomical Region Laterality Modality Other Narrative 04/03/2021 10:27 AM EDT [facility] ? Ambulatory Cardiac Event Monitor Report Duration of recordind 23h Summary Data Predominant rhythm: Predominant underlying rhythm was Sinus Rhythm. Minimum sinus rate: 41 bpm ?? Maximum sinus rate: 82 bpm ? Average heart rate: 57 bpm Atrial fibrillation: ? None Pauses: ? None Ectopic beats Isolated SVEs were frequent (6.6%, 68975), SVE Couplets were rare (<1.0%, 4420), and SVE Triplets were rare (<1.0%, 708). Isolated VEs were rare (<1.0%), VE Couplets were rare (<1.0%), and no VE Triplets were present. Abnormal Tachycardias Frequent brief episodes of supraventricular tachycardia occurred. ??The longer episodes that were logged as SVT are in fact sinus rhythm, and all the documented episodes of SVT are brief. Triggered and Patient Diary Events There was a single patient triggered event, which did not correspond to an arrhythmia. Conclusion: Frequent brief episodes of SVT, all asymptomatic. ??The predominant rhythm is sinus rhythm. Enrique Lucas MD Byron Brown MD [facility] documented in this encounter Visit Diagnoses Diagnosis Atrial fibrillation with RVR - had flutter initially, then fib Atrial fibrillation documented in this encounter Care Teams Senior Category Manager Relationship Specialty Start Date End Date Urbano Denis DO [address] [place] [address] PCP - General 09/03/12 03/17/22 Ruchi Valles RN Nurse Clinic Transplant Surgery 07/30/15 documented as of this encounter
--- OUTSIDE RECORDS SUMMARY | 2024-02-14 11:19 | XMS_ITS | Encounter Summary ---
Author Organization [place] [id number] Care Team Providers Care Printer Operator Name Role Phone Adeel Urbano KIRBY Primary Care Provider Encounter Details Date Type Department Care Team (Late st Contact Info) Description 03/15/2021 Telephone Cardiology at [address] [address] Monica Roberson, RN Social History Tobacco Use Types Packs/Day [...] Telephone Encounter - Monica Roberson RN - 03/15/2021 10:37 AM EDT TC from patient's Mara to report that the patient saw Dr. Brown yesterday and forgot to inform him of a new medication he started for his blood pressure. Medication list updated to include: -100mg hydralazine BID Monica Roberson RN Cardiology Clinic at [facility] [address] documented in this encounter Plan of Treatment Upcoming Encounters Date Type Department Care Team (Late st Contact Info) Description 04/15/2024 10:00 AM EDT Hospital Encounter Non-Invasive Cardiology [place] [address] Arrived documented as of this encounter Goals [...] on filedocumented in this encounter Care Teams Printer Operator Relationship Specialty Start Date End Date Urbano Denis DO [address] [place] [address] PCP - General 09/03/12 03/17/22 Ruchi Valles RN Nurse Clinic Transplant Surgery 07/30/15 documented as of this encounter
--- OUTSIDE RECORDS SUMMARY | 2024-02-14 11:19 | XMS_ITS | Encounter Summary ---
Author Organization [facility] [place] [address] Care Team Providers Care Manager Retail Store Name Role Phone Urbano Denis DO Primary Care Provider [phone] Encounter Details Date Type Department Care Team (Late st Contact Info) Description 02/25/2021 Telephone Neurology at [facility] [place] [address] Maxi Clement Jr., MD [facility] [place] [address] Social History Tobacco Use Types Packs/Day Years [...] encounter Miscellaneous Notes * Telephone Encounter - Maxi Clement Jr., MD - 02/25/2021 9:39 PM EDT Spoke to Dr. Walsh @ [facility] ED. Pt presented there with ~10 days of confusion, hiccups. Decreased alertness/excessive sleeping prompted to bring pt to ED this evening. Aside from some decreased level of alertness, I understand exam is nonfocal. CT shows left basal ganglia hge, 3.4cm, some localmass effect but no substantial midline shift. BP there have been as high as 228/191, with readings 140-160/90's more commonly. The altered level of awareness is concerning for increased ICP, and I wonder about acute on subacute bleeding given the altered alertness past 2 days. Discussed with neurosurgery semiconductor equipment technician who will review images. I advised BP control <140/90, and no anticoagulants/antiplateletes, neurochecks q1-2 hours and repeat HCT for further alterations of level of consciousness or new focal deficits. At the moment [facility] is taking transfers only for procedures- again neurosurgery is reviewing images. ADDENDUM Neurosurgery reviewed CT, case and felt there was no need for intervention at this time. Dr. Leroypdated me that pt is on apixaban for afib, and I advised reversal (KCentra, andexanet yarelis) in addition to holing apixaban, aspirin, BP control, frequent neurochecks, repeat CT as above. The have noICU level beds there, they will be looking for another facility for transfer. documented in this encounter Plan of Treatment Upcoming Encounters Date Type Department Care Team (Late st Contact Info) Description 04/15/2024 10:00 AM EDT Hospital Encounter Non-Invasive [place] [address] Arrived documented as of this encounter Goals [...] filedocumented in this encounter Care Teams Manager Retail Store Relationship Specialty Start Date End Date Urbano Denis DO [address] [place] [address] PCP - General 09/03/12 03/17/22 Hai STANLEY,Ruchi Nurse Clinic Transplant Surgery 07/30/15 documented as of this encounter
--- OUTSIDE RECORDS SUMMARY | 2024-02-14 11:19 | XMS_ITS | Encounter Summary ---
Author Organization [facility] [place] [address] Care Team Providers Care Seismic Plotter Name Role Phone AdeelUrbano toscano Primary Care Provider Encounter Details Date Type Department Care Team (Late st Contact Info) Description 03/14/2021 Orders Only [place] [address] Marisela Metcalf RN H/O kidney transplant Social History Tobacco Use [...] AM EDT Hospital Encounter Non-Invasive [place] [address] Arrived documented as of this encounter Goals Goal Patient Goal Type Associated Problems Recent Progress Patient-Stated? Author [facility] Medication Compliance and Understanding Patient Facing Action Plan On track( 017 10:41 AM EDT) No Selena Cisneros [facility] Note: Patient Goal: Clear hepatitis C Timeframe to meet goal: within 12 weeks of therapy documented as of this encounter Visit Diagnoses Diagnosis H/O kidney transplant Kidney replaced by transplant documented in this encounter Care Teams Seismic Plotter Relationship Specialty Start Date End Date Urbano Denis DO [address] [place] [address] PCP - General 09/03/12 03/17/22 Ruchi Valles RN Nurse Clinic Transplant Surgery 07/30/15 documented as of this encounter
--- OUTSIDE RECORDS SUMMARY | 2024-02-14 11:19 | XMS_ITS | Encounter Summary ---
[place] [address] Care Team Providers Care Driver Courier Name Role Phone Urbano Denis DO Primary Care Provider [phone] Encounter Details Date Type Department Care Team (Late st Contact Info) Description 03/03/2021 Telephone Cardiology at [address] [address] Garry Chaudhary [facility] [place] [address] Social History Tobacco Use Types Packs/Day Years [...] encounter Miscellaneous Notes * Telephone Encounter - Garry Chaudhary DO - 03/03/2021 12:40 PM EDT 70 yo male with hx kidney transplant in 2016, atrial fibrillation/flutter, and CAD s/p PCI (2019) who was recently admitted to [facility] with a brain bleed. We do not have records of this. Pt's is calling saying that he was discharged on Thursday at which time eliquis and aspirin werestopped and his BP regimen was changed around. Today BP was 138/101 about 1 hour after giving hydralazine (started at [facility]) for bleed. Called [facility] who instructed her to repeat BP which was 146/63. At this time I deferred BP management to neurology/neurosurgery there as I do not know the etiologyof his bleed and what their specific BP parameters are. She was understanding of this. documented in this encounter Plan of Treatment Upcoming Encounters Date Type Department Care Team (Late st Contact Info) Description 04/15/2024 10:00 AM EDT Hospital Encounter Non-[place] [address] Arrived documented as of this encounter Goals [...] on filedocumented in this encounter Care Teams Driver Courier Relationship Specialty Start Date End Date Urbano Denis DO [address] [place] [address] PCP - General 09/03/12 03/17/22 Ruchi Valles RN Nurse Clinic Transplant Surgery 07/30/15 documented as of this encounter
--- OUTSIDE RECORDS SUMMARY | 2024-02-14 11:19 | XMS_ITS | Encounter Summary ---
Author Organization [facility] [place] [address] Care Team Providers Care Driver Salesman Name Role Phone Urbano Denis DO Primary Care Provider [phone] Encounter Details Date Type Department Care Team (Late st Contact Info) Description 10/08/2020 11:40 AM EDT Office Visit [place] [id number] Dietary counseling and surveillance Social History Tobacco Use Types Packs/Day Years [...] as of this encounter Progress Notes * Jolene Reed, RD - 10/08/2020 11:40 AM EDT Addendum: post-transplant nurse coordinator, Marisela Metcalf, RN informed freelance writer pt's , Mararequesting to speak to freelance writer about encounter with pt. Caught Mara up to speed on freelance writer's visit with Yash, concerning increasing weight and HgbA1c trends over recent years. Mara appreciative of update, stating she will help Yash embark on nutrition-related goals set forth. Post-Transplant Follow-up Nutrition Note: Objective: Cody Bolden, 70 y.o. male, presents to transplant clinic today for [id number]-jz. Mortar Mixer Operator following up with patient today concerning increasing weight and HgbA1c. Past Medical History: Diagnosis Date ??? RAY [...] 2 diabetes mellitus ??? Weight increase 08/12/2016 [place] [facility] Diagnosis: Transplant date: 09/16/15 Nutritional Intake/tolerance: Yash reports a good appetite recently. He states that his diet has been terrible lately, expressing that he's had a lot of candy over recent months but has tried really hard to cut down on that lately. Yash states that his , Mara is on him about including highphosphorus foods at meals/snacks daily in efforts to optimize phosphorus intake/sustain serum phosphorus levels in the absence of KPhos supplements (previously discussed by freelance writer in Aug 2020). Yash provides the following diet recall: Breakfast: 2 cups coffee with stevia, maltese muffin, almond milk yogurt + blueberry smoothie Lunch: 4-5 pieces of celery with peanut butter Dinner: ham, candied sweet potatoes, biscuit, broccoli Dessert: ice cream Snacks: pistachios, pretzels, or chips every now and then, Bruno's peanut butter cups Fluids: water, 2% milk, diet cream or bush soda, Crystal light in the summer Labs: 09/12/20: BUN 18 Cr 1.3 Phosphorus 2.9 Calcium 9.2 Blood glucose 246 (H) Uric acid 5.6 Total cholesterol 85 Triglycerides 133 HDL 41 LDL 18 HgbA1c 8.0% (H) -- A1c 1 year ago 7.1%; 2 years ago 6.6%; 3 years ago 5.1% Relevant medications: prograf, cellcept, calcitriol, magnesium gluconate, vitamin C, glipizide, lipitor, eliquis, metoprolol, others noted in eDH Anthropometrics: Estimated body mass index is 32.36 kg/m?? as calculated from the following: Height as of 04/11/20: 180.3 cm (5' 11). Weight as of an earlier encounter on 10/08/20: 105.2 kg (232 lb). Ward Body Weight: 78.2kg %IBW: 135% Adjusted Body Weight: 85kg Usual Body Weight: pt reports a UBW of 220-230# over recent years Pre-transplant weight / BMI: 100.7kg / 30.9kg/m^2 Below recent weight trends suggest 5.3kg / 5% weight gain within the last year Wt Readings from Last 3 Encounters: 10/08/20 105.2 kg (232 lb) 04/11/20 103.2 kg (227 lb 9.6 oz) 02/17/20 99.9 kg (220 lb 3.2 oz) Skin status: no impairments noted Nutrition Focused Physical Exam (NFPE): Not performed Protein-calorie Malnutrition: Not identified (Davin guerra al, JPEN J Parenteral Enteral Nutr. 2012 November; 36(3): 273-83) Estimated needs: Calories: 1955kcal/day (25kcal/kg IBW) Protein: 85grams/day (0.8g/kg current weight) *EER calculated based on long-term needs for maintenance s/p kidney transplantation Nutrition Intervention (supplement therapy, education, counseling, etc): Discussed pt's most recentlab results, including normal serum phosphorus level. Reviewed pt's most recent A1c trends in detail, discussing consequences of excessive weight gain and persistent hyperglycemia/poor blood glucose control. Pt acknowledged this info, again stating that he's been eating way too much candy lately.Provided pt with DM nutrition education today. Emphasized importance of regular mealtimes. Encouraged consistent carbohydrate intake at meals. Discussed portion sizes and label reading for carbohydrate content of foods. Dicussed in detail the importance of choosing complex CHO such as whole grain bread products (also in efforts to optimize phosphorus intake), starchy vegetables, fruit as much as possible, and avoiding frequent intake of refined CHO. Reviewed food sources of both complex and refined CHO in detail. Explained benefit of fiber intake on weight and blood glucose control. Pt verbalized good understanding, receptive to suggestions provided by freelance writer. Pt accepted Eating for HealthyBlood Sugars and Weight Control booklet complete with freelance writer's means of contact. Pt plans show wifeMara, and freelance writer offered to review info with Mara if she would like. Nutrition Monitoring/Evaluation and Goals: -Attempt controlled, consistent CHO intake at meals daily. -Choose complex CHO sources as often as possible. -Limit refined CHO intake, including candy; pt plans to try to choose fruit instead of candy. -Continue to include high phosphorus foods at meals snacks; nuts, nut butters, lean animal protein food choices -Monitor blood glucose control parameters. -Monitor weight. Nutrition Plan/Recommendations: -Follow up as needed during future encounters. Jolene Reed RD documented in this encounter Plan of Treatment Upcoming Encounters Date Type Department Care Team (Late st Contact Info) Description 04/15/2024 10:00 AM EDT Hospital Encounter Non[place] [address] Arrived documented as of this encounter Goals Goal Patient Goal Type Associated Problems Recent Progress Patient-Stated? Author [facility] Medication Compliance and Understanding Patient Facing Action Plan On track( 017 10:41 AM EDT) Selena Scott, [facility] Note: Patient Goal: Clear hepatitis C Timeframe to meet goal: within 12 weeks of therapy documented as of this encounter Visit Diagnoses Diagnosis Dietary counseling and surveillance Dietary surveillance and counseling documented in this encounter Care Teams Driver Salesman Relationship Specialty Start Date End Date Urbano Denis DO [address] [place] [address] [address] [place] [address] PCP - General 09/03/12 03/17/22 Ruchi Valles RN Nurse Clinic Transplant Surgery 07/30/15 documented as of this encounter
--- OUTSIDE RECORDS SUMMARY | 2024-02-14 11:19 | XMS_ITS | Encounter Summary ---
[place] [address] Care Team Providers Care Anti Air Warfare Operations Officer Name Role Phone Adeel Urbano KIRBY Primary Care Provider [phone] Reason for Visit * Reason Onset Date Comments Medication Refill 12/27/2020 Encounter Details Date Type Department Care Team (Late st Contact Info) Description 12/27/2020 Refill [place] [address] Marisela Metcalf, RN Social History Tobacco Use [...] Telephone Encounter - Marisela Metcalf RN - 12/27/2020 11:45 AM EDT I contacted pt's Mara to discuss the shortage of magnesium gluconate and the best options to get this medication. Currently it is not available in our pharmacy or most local pharmacies but is available online. I recommended [facility] as prices are comparable to pharmacy and they offer quick shipping. I left a message for Mara to call back to discuss. documented in this encounter Plan of Treatment Upcoming Encounters Date Type Department Care Team (Late st Contact Info) Description 04/15/2024 10:00 AM EDT Hospital Encounter Non-Invasive [place] [address] Arrived documented as of this encounter Goals [...] on filedocumented in this encounter Care Teams Anti Air Warfare Operations Officer Relationship Specialty Start Date End Date Urbano Denis DO [address] [place] [address] PCP - General 09/03/12 03/17/22 Ruchi Valles RN Nurse Clinic Transplant Surgery 07/30/15 documented as of this encounter
--- OUTSIDE RECORDS SUMMARY | 2024-02-14 11:19 | XMS_ITS | Encounter Summary ---
[place] [address] Care Team Providers Care Ems Coordinator Name Role Phone AdeelUrbano boland Primary Care Provider [phone] Reason for Referral * Consultation (Routine) - Closed Specialty Diagnoses / Procedures Referred By Contac t Referred To Contact Neurology Diagnoses Cerebrovascular accident (CVA), unspecified mechanism Byron Brown MD [facility] [place] [address] Joseph Cortés MD [facility] [place] [address] Referral ID Status Reason Start Date Expiration Date V isits Requested Visits Authorized [id number] Closed Consult, Test & Treat 03/14/2021 03/14/2022 1 1 * Diagnostic Test (Routine) - Closed Specialty Diagnoses / Procedures Referred By Contac t Referred To Contact Cardiology Diagnoses Atrial fibrillation with RVR Procedures Ziopatch 48 Hrs-15 Days Byron Brown MD [facility] [place] [address] [facility] [place] [address] Referral ID Status Reason Start Date Expiration Date V isits Requested Visits Authorized [id number] Closed Specialty Service Requested 03/15/2021 05/13/2021 1 1 Encounter Details Date Type Department Care Team (Late st Contact Info) Description 03/14/2021 2:40 PM EDT Office Visit Cardiology at [address] [address] Byron Brown MD [facility] [place] [address] Atrial fibrillation with RVR - had flutter initially, then fib; Cerebrovascular accident (CVA), unspecified mechanism Social History Tobacco Use Types Packs/Day Years [...] Sign Reading Time Taken Comments Blood Pressure 105/63 03/14/2021 3:07 PM EDT Pulse 59 03/14/2021 3:07 PM EDT Temperature - - Respiratory Rate - - Oxygen Saturation 98% 03/14/2021 3:07 PM EDT Inhaled Oxygen Concentration - - Weight 95.3 kg (210 lb) 03/14/2021 3:07 PM EDT Height 180.3 cm (5' 11) 03/14/2021 3:07 PM EDT Body Mass Index 29.29 03/14/2021 3:07 PM EDT documented in this encounter Progress Notes * Byron Brown MD - 03/14/2021 2:40 PM EDT Images from the original note were not included. [facility] [place] [address] CARDIOLOGY/ VASCULAR OUTPATIENT NOTE Ethel P Tubiello Urbano Adeel, DO OFFICE VISIT : From the recent phone call to [facility] (02/2021): 70 yo male with hx kidney transplant in 2016, atrial fibrillation/flutter, and CAD s/p PCI (2018) who was recently admitted to [facility] with a brain bleed. We do not have records of this. Pt's is calling saying that he was discharged on Thursday at which time eliquis and aspirin werestopped and his BP regimen was changed around. Today BP was 138/101 about 1 hour after giving hydralazine (started at [facility]) for bleed. Called [facility] who instructed her to repeat BP which was 146/63. At this time I deferred BP management to neurology/neurosurgery there as I do not know the etiologyof his bleed and what their specific BP parameters are. She was understanding of this. From my note 12/2020: ?? Pleasant 69 year old male.?S/p kidney transplant in 2016. ? The patient did not have a significant cardiac history but was admitted to [facility] in January 2019 with newly diagnosed AFlutter and a NSTEMI. ??He underwent cardiac cath and PCI to an OM lesion. ??LVEF was initially 30% (while in AFL with RVR) - but improved one week later to 45%. Echo last week confirmed that his LVEF has returned to normal at 59% in NSR. ? Cardiac meds include: -ASA 81, apixaban, met sux 25, amlodipine 2.5, atorvastatin 40 ?? Issues: ?? 1. ??CAD: Appears stable on ASA, BB, high intensity statin. ??Not on ANNAMARIE/ARB, possibly secondary torenal Tx 2. ??HTN: noted to be elevated at the time of the echo, 154/62 (12/2020); other most recent readings: 131/66 (10/2020), 182/67 (may have had pain due to back problems at that time, 05/2020). 3. ??Atrial flutter: remains on eliquis. ??Tele with sinus rhythm. ??Might be able to consider stopping but would want holter/zio. 4. ??Cardiomyopathy: resolved tachymyopathy. Continue with BB. SUBJECTIVE: Mr. Bolden returns to the clinic for follow-up with his . Significant events have occurred since he was last seen: The patient was apparently having problems with hiccups for 2 straight days and then started to have some signs of confusion. His thought that he possibly had an infections - since when he had an infection previously, he had some confusion (was delirious with a kidney infection). Turns out that he was diagnosed with a hemorrhagic stroke (see report from MRI below). Therefore, his eliquis andASA were stopped. It seems that his symptoms have improved although he sometimes is a little slow to respond to questions. ECG in clinic today confirms NSR. Meds: Current Outpatient Medications Medication Sig Dispense Refill ??? atorvastatin (Lipitor) 40 mg Tablet TAKE [...] Release 24 hr Take 1 tablet by mouthdaily. (Patient taking differently: Take 12.5 mg by mouth daily.) 90 tablet 1 ??? glipiZIDE XL (Glucotrol XL) 10 mg Tablet Extended Rel 24 hr Take 10 mg by mouth 2 times daily. ??? amLODIPine (Norvasc) 2.5 mg Tablet Take 10 mg by mouth daily. ??? nitroGLYcerin (NITROSTAT) 0.4 [...] the past 24 hrs: Pulse BP SpO2 03/14/21 1507 59 105/63 98 % General: well developed, well nourished HEENT: PERRLA Neck: supple, JVP normal Lungs: clear to ascultation Cardiac: RRR, no m/r/g Abdomen: nontender, nondistended Extremities: normal ROM, No edema. Neuro: alert and oriented x 3, normal muscle strength Skin: no new rashes Results for ETHEL BOLDEN ( ) as of 03/14/2021 18:10 Ref. Range 03/14/2021 14:50 Sodium Latest Ref Range: 135 - 145 mmol/L 134 (L) Potassium Latest Ref Range: 3.5 - 5.0 mmol/L 3.6 Chloride Latest Ref Range: 98 - 107 mmol/L 98 CO2 Latest Ref Range: 22 - 31 mmol/L 23 Anion Gap Latest Ref Range: 5 - 15 mmol/L 13 BUN Latest Ref Range: 10 - 20 mg/dL 22 (H) Creatinine Latest Ref Range: 0.80 - 1.50 mg/dL 1.34 Estimated GFR Latest Ref Range: >=60 mL/min/1.73 m?? 53 (L) Calcium Latest Ref Range: 8.5 - 10.5 mg/dL 9.8 Magnesium Latest Ref Range: 0.69 - 1.07 mmol/L 0.76 Phosphorus Latest Ref Range: 2.5 - 4.5 mg/dL 3.1 Uric Acid Latest Ref Range: 3.5 - 8.5 mg/dL 6.1 Glucose Lvl Latest Ref Range: 65 - 199 mg/dL 123 Total Protein Latest Ref Range: 6.1 - 8.0 gm/dL 6.8 Albumin Latest Ref Range: 3.2 - 5.2 gm/dL 3.6 Total Bilirubin Latest Ref Range: 0.2 - 1.3 mg/dL 2.3 (H) Alk Phos Latest Ref Range: 40 - 130 unit/L 72 AST Latest Ref Range: 0 - 39 unit/L 15 ALT Latest Ref Range: 0 - 55 unit/L 18 Chol, Total Latest Units: mg/dL 95 ASSESSMENT / PLAN: 70 year old male S/p kidney transplant in 2016. ? Admitted to [facility] in January 2019 with newly diagnosed AFlutter and a NSTEMI. ??He underwent cardiac cath and PCI to an OM lesion. ??LVEF was initially 30% (while in AFL with RVR) - but improved over time back to normal (most recent echo 2020 with normal LVEF). Recent hemorrhagic stroke as above. Cardiac meds include: -met sux 25, amlodipine 2.5, atorvastatin 40 -remains in NSR -obtain ZIO to screen for PAF (Afib or AFL) -ok to remain off DOAC for now despite history of AFL -consider restarting ASA 81 per neuro -follow-up with me in -follow-up with neuro Byron Brown MD, [facility] Cardiovascular Medicine [facility] Clinic scheduling: Trinidad John [phone] Clinic Team Nurse: Anel Proctor RN [phone] The total time associated with this visit was 40 minutes. documented in this encounter Plan of Treatment Upcoming Encounters Date Type Department Care Team (Late st Contact Info) Description 04/15/2024 10:00 AM EDT Hospital Encounter Non-[place] [address] Arrived Scheduled Referrals Name Type Priority Associated Diagnoses Orde r Schedule Referral to Neurology Outpatient Referral Routine Cerebrovascular accident (CVA), unspecified mechanism Ordered: 03/14/2021 documented as of this encounter Goals Goal Patient Goal Type Associated Problems Recent Progress Patient-Stated? Author [facility] Medication Compliance and Understanding Patient Facing Action Plan On track( 017 10:41 AM EDT) No Selena Cisneros, [facility] Note: Patient Goal: Clear hepatitis C Timeframe to meet goal: within 12 weeks of therapy documented as of this encounter Procedures Procedure Name Priority Date/Time Associated Diagnosis Comments EKG 12-LEAD Routine 03/14/2021 3:13 PM EDT Atrial fibrillation with RVR - had flutter initially, then fib documented in this encounter Results * Ziopatch 48 Hrs-15 Days (03/14/2021 4:13 PM EDT) Anatomical Region Laterality Modality Other Narrative 04/03/2021 10:27 AM EDT [facility] ? Ambulatory Cardiac Event Monitor Report Duration of recordind 23h Summary Data Predominant rhythm: Predominant underlying rhythm was Sinus Rhythm. Minimum sinus rate: 41 bpm ?? Maximum sinus rate: 82 bpm ? Average heart rate: 57 bpm Atrial fibrillation: ? None Pauses: ? None Ectopic beats Isolated SVEs were frequent (6.6%, [address]), SVE Couplets were rare (<1.0%, 4420), and [...] Byron Brown MD CARDIAC SERVICES OR DERABLES * EKG 12 Lead (03/14/2021 3:13 PM EDT) Ventricular rate 60 BPM MUSE SYSTEM Atrial Rate 60 BPM MUSE SYSTEM P-R Interval 224 ms MUSE SYSTEM QRS Duration 116 ms MUSE SYSTEM Q-T Interval 450 ms MUSE SYSTEM QTC Calculated (Bezet) 450 ms MUSE SYSTEM Calculated P Bronson 69 degrees MUSE SYSTEM Calculated R Bronson -69 degrees MUSE SYSTEM Calculated T Bronson 82 degrees MUSE SYSTEM INTERPRETATION Sinus rhythm with 1st degree A-V block with Premature atrial complexes Left anterior fascicular block Minimal voltage criteria for LVH, may be normal variant ( Barrett product ) Abnormal ECG When compared with ECG of 17-FEB-2020 14:13, Premature atrial complexes are now Present Confirmed by Ruchi Park MD ([id number]) on 03/14/2021 4:05:10 PM MUSE SYSTEM 03/14/2021 3:13 PM EDT 03/14/2021 4:05 PM EDT Byron Brown MD ECG ORDERABLES MUSE SYSTEM documented in this encounter Visit Diagnoses Diagnosis Atrial fibrillation with RVR - had flutter initially, then fib Atrial fibrillation Cerebrovascular accident (CVA), unspecified mechanism Atrial fibrillation with RVR - had flutter initially, then fib Atrial fibrillation documented in this encounter Care Teams Ems Coordinator Relationship Specialty Start Date End Date Urbano Denis DO [address] [place] [address] PCP - General 09/03/12 03/17/22 Ruchi Valles RN Nurse Clinic Transplant Surgery 07/30/15 documented as of this encounter
--- OUTSIDE RECORDS SUMMARY | 2024-02-14 11:19 | XMS_ITS | Encounter Summary ---
[place] [address] Care Team Providers Care Single Corner Cutter Name Role Phone Adeel Urbano KIRBY Primary Care Provider Encounter Details Date Type Department Care Team (Late st Contact Info) Description 09/04/2020 Telephone Cardiology at [address] [phone] Hetal Lyle, CHERIE Social History Tobacco Use Types Packs/Day Years [...] AM EDT Hospital Encounter [place] [address] Arrived documented as of this encounter Goals Goal Patient Goal Type Associated Problems Recent Progress Patient-Stated? Author [facility] Medication Compliance and Understanding Patient Facing Action Plan On track( 017 10:41 AM EDT) No Selena Cisneros, [facility] Note: Patient Goal: Clear hepatitis C Timeframe to meet goal: within 12 weeks of therapy documented as of this encounter Visit Diagnoses Not on filedocumented in this encounter Care Teams Single Corner Cutter Relationship Specialty Start Date End Date Urbano Denis DO [address] [place] [address] [address] [facility] [address] [place] [address] PCP - General 09/03/12 03/17/22 Ruchi Valles RN Nurse Clinic Transplant Surgery 07/30/15 documented as of this encounter
--- OUTSIDE RECORDS SUMMARY | 2024-02-14 11:19 | XMS_ITS | Encounter Summary ---
Author Organization [facility] [place] [address] Care Team Providers Care Meat Inspector Name Role Phone Adeel Urbano KIRBY Primary Care Provider [phone] Reason for Visit * Reason Onset Date Comments Medication Refill 09/24/2020 Encounter Details Date Type Department Care Team (Late st Contact Info) Description 09/24/2020 Refill Cardiology at [address] [address] Byron Brown MD [facility] [place] [address] Medication Refill Social History Tobacco Use Types [...] encounter Miscellaneous Notes * Telephone Encounter - Aenl Proctor RN - 09/24/2020 10:11 AM EDT Received phone request from patient spouse seeking refill of Elqiuis 5 mg one tablet PO - BID. Patient does get this Rx from [facility] free of charge once he has fulfilled his annual deductible requirement- but needs to pay for some of this medication [id number] first Would like the Rx to go to [facility] to meet this requirement. Reviewed the office note from patient's 09/14/[address] Brown. Rx prepared as requested and forwarded to provider for their approval. Anel Proctor RN, BSN Ambulatory Cardiology Department documented in this encounter Plan of Treatment Upcoming Encounters Date Type Department Care Team (Late st Contact Info) Description 04/15/2024 10:00 AM EDT Hospital Encounter Non-Invasive [place] [address] Arrived documented as of this encounter Goals Goal Patient Goal Type Associated Problems Recent Progress Patient-Stated? Author [facility] Medication Compliance and Understanding Patient Facing [...] fibrillation documented in this encounter Care Teams Meat Inspector Relationship Specialty Start Date End Date Urbano Denis DO [address] [place] [address] PCP - General 09/03/12 03/17/22 Ruchi Valles RN Nurse Clinic Transplant Surgery 07/30/15 documented as of this encounter
--- OUTSIDE RECORDS SUMMARY | 2024-02-14 11:19 | XMS_ITS | Encounter Summary ---
Author Organization [facility] [address] Care Team Providers Care Emergency Vehicle Technician Name Role Phone Urbano Denis DO Primary Care Provider [phone] Encounter Details Date Type Department Care Team (Late st Contact Info) Description 09/03/2020 Notes Only [place] [address] Anabella Bright Social History Tobacco Use Types [...] encounter Progress Notes * Anabella Bright - 09/03/2020 10:41 AM EST Transplant Application Specialist Note: Patient's called to inform us that she has filed an appeal for [facility]'s hos. Will await call with decision. Note: I did not file an appeal on behalf of the patient due to part D plans denying coverage based on Medicare Law prohibiting them from covering medications that are not FDA approved. Kphos is notFDA approved. documented in this encounter Plan of Treatment Upcoming Encounters Date Type Department Care Team (Late st Contact Info) Description 04/15/2024 10:00 AM EDT Hospital Encounter [place] [address] Arrived documented as of this encounter Goals Goal Patient Goal Type Associated Problems Recent Progress Patient-Stated? Author [facility] Medication Compliance and Understanding Patient Facing Action Plan On track( 017 10:41 AM EDT) Selena Scott, [facility] Note: Patient Goal: Clear hepatitis C Timeframe to meet goal: within 12 weeks of therapy documented as of this encounter Visit Diagnoses Not on filedocumented in this encounter Care Teams Emergency Vehicle Technician Relationship Specialty Start Date End Date Urbano Denis DO [address] [place] [address] PCP - General 09/03/12 03/17/22 Ruchi Valles RN Nurse Clinic Transplant Surgery 07/30/15 documented as of this encounter
--- OUTSIDE RECORDS SUMMARY | 2024-02-14 11:19 | XMS_ITS | Encounter Summary ---
[facility] Organization [facility] [place] [address] Care Team Providers Care Manager Trust Name Role Phone Adeel Urbano KIRBY Primary Care Provider [phone] Reason for Visit * Reason Comments Medication Refill Encounter Details Date Type Department Care Team (Late st Contact Info) Description 09/10/2020 Refill [place] [address] Tal Eagle MD [facility] [address] [place] [address] Social History Tobacco Use Types Packs/Day Years [...] AM EDT Hospital Encounter Non[place] [address] Arrived documented as of this encounter Goals [...] filedocumented in this encounter Care Teams Manager Trust Relationship Specialty Start Date End Date Urbano Denis DO [address] [place] [address] PCP - General 09/03/12 03/17/22 Ruchi Valles RN Nurse Clinic Transplant Surgery 07/30/15 documented as of this encounter
--- OUTSIDE RECORDS SUMMARY | 2024-02-14 11:19 | XMS_ITS | Encounter Summary ---
Author Organization [facility] [place] [address] Care Team Providers Care Asbestos Hazard Abatement Worker Name Role Phone Urbano Denis DO Primary Care Provider Encounter Details Date Type Department Care Team (Late st Contact Info) Description 05/03/2021 Telephone [place] [address] Radha Espinoza, COMPLIANCE VICE PRESIDENT [facility] [place] [address] Social History Tobacco Use Types Packs/Day Years [...] Miscellaneous Notes * Telephone Encounter - Radha Espinoza, RN - 05/03/2021 9:12 AM EDT Spoke with Mara. Explained that likely the Tamsulosin is for his BPH and from the notes we have, it was last ordered in January 2021. She also curious about his PSA level and what that means. Indicatedthat she has asked for his labs to be faxed to us. Upon receipt of the labs and review, we will follow up with them. Verbalized understanding. * Telephone Encounter - Radha Espinoza RN - 05/03/2021 9:12 AM EDT ----- Message from Mara Kimble sent at 05/03/2021 8:27 AM EDT ----- Contact: Has lots of questions re Tamulosin - does he need it and who prescribed; and creat went up a littlebit should they be concerned. Saw pcp and prostate fine. She is having the pcp office fax the labs down to us. documented in this encounter Plan of Treatment Upcoming Encounters Date Type Department Care Team (Late st Contact Info) Description 04/15/2024 10:00 AM EDT Hospital Encounter [place] [address] Arrived documented as of this encounter Goals Goal Patient Goal Type Associated Problems Recent Progress Patient-Stated? Author DH Home Medication Compliance and Understanding Patient Facing Action Plan On track( 017 10:41 AM EDT) Selena Scott, [facility] Note: Patient Goal: Clear hepatitis C Timeframe to meet goal: within 12 weeks of therapy documented as of this encounter Visit Diagnoses Not on filedocumented in this encounter Care Teams Asbestos Hazard Abatement Worker Relationship Specialty Start Date End Date Urbano Denis DO [address] [place] [address] PCP - General 09/03/12 03/17/22 Ruchi Valles RN Nurse Clinic Transplant Surgery 07/30/15 documented as of this encounter
--- OUTSIDE RECORDS SUMMARY | 2024-02-14 11:19 | XMS_ITS | Encounter Summary ---
[place] [address] Care Team Providers Care Car Deliverer Name Role Phone Urbano Denis DO Primary Care Provider Encounter Details Date Type Department Care Team (Late st Contact Info) Description 12/20/2020 11:45 AM EDT Laboratory Appointment Lab [address] [place] [phone] Social History Tobacco Use Types Packs/Day Years [...] AM EDT Hospital Encounter Non[place] [address] Arrived documented as of this encounter Goals Goal Patient Goal Type Associated Problems Recent Progress Patient-Stated? Author [facility] Medication Compliance and Understanding Patient Facing Action Plan On track( 017 10:41 AM EDT) No Selena Cisneros [facility] Note: Patient Goal: Clear hepatitis C Timeframe to meet goal: within 12 weeks of therapy documented as of this encounter Procedures Procedure Name Priority Date/Time Associated Diagnosis Comments HEMOGRAM Routine 12/20/2020 12:13 PM EDT DIFFERENTIAL, AUTOMATED Routine 12/20/2020 12:13 PM EDT TACROLIMUS LEVEL Routine 12/20/2020 12:1 3 PM EDT URIC ACID Routine 12/20/2020 12:13 PM EDT PHOSPHORUS Routine 12/20/2020 12:13 PM EDT MAGNESIUM Routine 12/20/2020 12:13 PM EDT CHOLESTEROL, TOTAL Routine 12/20/2020 12 :13 PM EDT COMPREHENSIVE METABOLIC PANEL Routine 12/20/2020 12:13 PM EDT _URINALYSIS WITH MICRSOCOPIC Routine 12/20/2020 12:07 PM EDT PROTEIN/CREATININE RATIO, URINE Routine 12/20/2020 12:07 PM EDT documented in this encounter Results * Tacrolimus level (12/20/2020 12:13 PM EDT) Tacrolimus 6.0 ng/mL [facility] Comment: Please be advised that as of 07/10/2020 the methodology for tacrolimus testing has changed from a liquid chromatography tandem mass spectrometry platform to an electrochemiluminescence immunoassay format. Blood Venous Draw / Unknown 12/20/2020 12:13 PM EDT 12/20/2020 12:24 PM EDT Narrative Resulting Agency Comment Spec In Lab Tal Quesada MD CHEMISTRY ORDERABLES [facility] [place] [address] * Uric acid (12/20/2020 12:13 PM EDT) Uric Acid 6.5 3.5 - 8.5 mg/dL [facility] Blood Venous Draw / Unknown 12/20/2020 12:13 PM EDT 12/20/2020 12:24 PM EDT Narrative Resulting Agency Comment Spec In Lab Tal Kessler Daily CHEMISTRY ORDERABLES [facility] [place] [address] * Magnesium (12/20/2020 12:13 PM EDT) Magnesium 0.72 0.69 - 1.07 mmol/L [facility] Blood Venous Draw / Unknown 12/20/2020 12:13 PM EDT 12/20/2020 12:24 PM EDT Narrative Resulting Agency Comment Spec In Lab Tal Kessler Daily CHEMISTRY ORDERABLES Performing Organization Address City/[facility]/ZIP Co de Phone Number [facility] [place] [address] * Cholesterol, total (12/20/2020 12:13 PM EDT) Cholesterol, Total 83 mg/dL [facility] Comment: Lower Risk: <200 mg/dL Average Risk: 200-239 mg/dL Higher Risk: >py=003 mg/dL Lipid Interpretation See Note [facility] Comment: Lipid management should be guided by a patient? s ASCVD risk, goals and preferences. ACC/AHA Guidelines recommend high intensity statin if clinical ASCVD or LDL greater than or equal to 190 mg/dL. http://tinyurl.com/IWS-LJQ-Yuxuectqu Adults aged 40-75 with LDL 70-189 mg/dL should have their 10 year ASCVD risk estimated with the ACC/AHA ASCVD risk roofing laborer http://tools.acc.org/XRDVC-Cfox-Tisjngyxz/ Statin should be discussed if risk greater [...] risk reduction. Blood Venous Draw / Unknown 12/20/2020 12:13 PM EDT 12/20/2020 12:24 PM EDT Narrative Resulting Agency Comment Spec In Lab Tal Quesada MD CHEMISTRY ORDERABLES [facility] [place] [address] * (ABNORMAL) Comprehensive metabolic panel (non-fasting) (12/20/2020 12:13 PM EDT) Glucose 144 65 - 199 mg/dL [facility] Comment:Diabetes: >=200 mg/d L plus symptoms Blood Urea Nitrogen 16 10 - 20 mg/dL [facility] Creatinine 1.34 0.80 - 1.50 mg/dL [facility] Sodium 142 135 - 145 mmol/L [facility] Potassium 4.2 3.5 - 5.0 mmol/L [facility] Comment: Please note: ??Patients with WBC >100,000 may have falsely elevated Potassium levels. ??For accurate Potassium quantification in these patients send serum separator tube (gold top) for subsequent determinations. ??Contact the Clinical Chemistry Laboratory if there are any questions. Chloride 103 98 - 107 mmol/L [facility] Carbon Dioxide 30 22 - 31 mmol/L [facility] Anion Gap 9 5 - 15 mmol/L [facility] Calcium 9.7 8.5 - 10.5 mg/dL [facility] Protein, Total 7.1 6.1 - 8.0 gm/dL [facility] Albumin 4.2 3.2 - 5.2 gm/dL [facility] Aspartate Aminotransferase 24 0 - 39 unit/L [facility] Alanine Aminotransferase 23 0 - 55 unit/L [facility] Alkaline Phosphatase 82 40 - 130 unit/L [facility] Bilirubin, Total 2.6(H) 0.2 - 1.3 mg/dL [facility] Est Glomerular Filtration Rate 53(L) >=60 mL/min/1. 73 m?? [facility] Comment: This patient? s estimated glomerular filtration rate (eGFR) is between 53 mL/min/1.73 m2 (patients with less muscle mass per kg body weight) and 61 mL/min/1.73 m2 (patients with more muscle mass [...] to eGFR. Blood Venous Draw / Unknown 12/20/2020 12:13 PM EDT 12/20/2020 12:24 PM EDT Narrative Resulting Agency Comment Spec In Lab Tal Quesada MD CHEMISTRY ORDERABLES [facility] [place] [address] * Differential, Automated (12/20/2020 12:13 PM EDT) Neutrophil % 66.9 % [facility] Neutrophil Absolute 5.53 1.70 - 6.10 x10(3)/[facility] Lymph % 20.6 % [facility] Lymphocytes Abs 1.7 0.9 - 3.2 x10(3)/[facility] Monocyte % 7.9 % [facility] Monocyte Abs 0.6 0.3 - 0.9 x10(3)/[facility] Eos % 3.6 % [facility] Eosinophils Abs 0.3 0.0 - 0.4 x10(3)/[facility] Basophil % 0.8 % [facility] Baso Absolute 0.1 0.0 - 0.1 x10(3)/[facility] Immature Gran % 0.20 % [facility] Comment: Immature granulocytes(IG's)percentage and absolute count will include metamyelocytes, myelocytes, and promyelocytes. Blood smears from CBCs yielding IG's will be scanned manually for concordance. If this scan disagrees with the automated IG or if promyelocytes are noted, a manual differential will be performed. Immature Gran Absolute 0.02 0.00 - 0.04 x10(3)/[facility] Blood Venous Draw / Unknown 12/20/2020 12:13 PM EDT 12/20/2020 12:24 PM EDT Narrative Resulting Agency Comment Spec In Lab Tal Quesada MD HEMATOLOGY ORDERABLE S [facility] [place] [address] * Phosphorus (12/20/2020 12:13 PM EDT) Phosphorus 2.6 2.5 - 4.5 mg/dL [facility] Blood Venous Draw / Unknown 12/20/2020 12:13 PM EDT 12/20/2020 12:24 PM EDT Narrative Resulting Agency Comment Spec In Lab Tal Quesada MD CHEMISTRY ORDERABLES [facility] [place] [address] * Hemogram (12/20/2020 12:13 PM EDT) White Blood Cell 8.3 4.0 - 9.5 x10(3)/[facility] Red Blood Cell 4.94 4.58 - 5.54 x10(6)/[facility] Hemoglobin 15.2 13.7 - 16.5 gm/dL [facility] Hematocrit 44.6 40.5 - 48.5 % [facility] Mean Cell Volume 90.3 82.9 - 93.1 [facility] Mean Cell Hemoglobin 30.8 27.5 - 32.1 pg [facility] Mean Cell Hemoglobin Concentration 34.1 32.0 - 35.7 gm/dL [facility] Platelet 251 145 - 357 x10(3)/[facility] RDW Standard Deviation 41.9 36.0 - 45.0 [facility] RDW coefficient of variation 13.0 11.4 - 13.8 % [facility] Mean Platelet Volume 9.7 7.6 - 12.9 [facility] NRBC% auto 0.0 % [facility] NRBC Absolute 0.000 0.000 - 0.000 x10(3)/[facility] Blood Venous Draw / Unknown 12/20/2020 12:13 PM EDT 12/20/2020 12:24 PM EDT Narrative Resulting Agency Comment Spec In Lab Tal Quesada MD HEMATOLOGY ORDERABLE S [facility] [place] [address] * (ABNORMAL) Protein/Creatinine Ratio, urine (12/20/2020 12:07 PM EDT) Creatinine, Urine 93 mg/dL [facility] Protein, Urine 131(H) 0 - 12 mg/dL [facility] Protein / Creatinine Ratio, Urine 1.4 ratio [facility] Urine Urine / Unknown 12/20/2020 1 2:07 PM EDT 12/20/2020 12:31 PM EDT Narrative Resulting Agency Comment Spec In Lab Tal Quesada MD URINE ORDERABLES [facility] [place] [address] * (ABNORMAL) _Urinalysis with microscopic (12/20/2020 12:07 PM EDT) Glucose, Urine Dipstick Negative Negative mg/dL [facility] Protein, Urine Dipstick >=300(A) Negative mg/dL [facility] Bilirubin, Urine Dipstick Negative Negative mg/dL [facility] Comment: Clinical correlation required for positive Urine Bilirubin results as false positive may occur with some drugs and drug related products. If a false positive is suspected a serum total bilirubin should be considered if clinically indicated. Urobilinogen, Urine Dipstick Normal Normal mg/dL [facility] pH, Urn (dipstick) 7.0 5.0 - 8.0 [facility] Blood, Urine Dipstick Negative Negative mg/dL [facility] Ketone, Urine Dipstick Negative Negative mg/dL [facility] Nitrite, Urine Dipstick Negative Negative [facility] Leukocytes, Urine Dipstick Negative Negative [facility] Appearance, Urine Dipstick Clear Clear [facility] Specific [place] Urine Automated 1.021 1.005 - 1.030 [facility] Color, Urine Dipstick Yellow Yellow [facility] RBC, Urine 5(H) 0 - 3 /HPF [facility] WBC, Urine 0 0 - 3 /HPF [facility] Urine Urine / Unknown 12/20/2020 1 2:07 PM EDT 12/20/2020 12:31 PM EDT Narrative Resulting Agency Comment Spec In Lab Tal Quesada MD URINE ORDERABLES [facility] [place] [address] documented in this encounter Visit Diagnoses Not on filedocumented in this encounter Care Teams Car Deliverer Relationship Specialty Start Date End Date Urbano Denis DO [address] [place] [address] PCP - General 09/03/12 03/17/22 Ruchi Valles RN Nurse Clinic Transplant Surgery 07/30/15 documented as of this encounter
--- OUTSIDE RECORDS SUMMARY | 2024-02-14 11:19 | XMS_ITS | Encounter Summary ---
Author Organization Formerly [facility] [place] [address] Care Team Providers Care Pressure Testing Technician Name Role Phone Urbano Denis DO Primary Care Provider [phone] Encounter Details Date Type Department Care Team (Late st Contact Info) Description 12/27/2020 2:00 PM EDT TH Visit (TeleHealth) Cardiology at [address] [address] Byron Brown MD [facility] [place] [address] Coronary artery disease involving samish heart, unspecified vessel or lesion type, unspecified whether angina present Social History Tobacco Use Types Packs/Day Years [...] as of this encounter Progress Notes * Byron Brown MD - 12/27/2020 2:00 PM EDT Images from the original note were not included. [facility] [place] [address] CARDIOLOGY/ VASCULAR OUTPATIENT NOTE Cody Bolden Urbano Denis, OFFICE VISIT : (Telehealth, phone) Pleasant 69 year old male.?S/p kidney transplant in 2016. ? The patient did not have a significant cardiac history but was admitted to [facility] in January 2019 with newly diagnosed AFlutter and a NSTEMI. ??He underwent cardiac cath and PCI to an OM lesion. ??LVEF was initially 30% (while in AFL with R[facility]) - but improved one week later to 45%. ? Cardiac meds include: -ASA 81, apixaban, met sux 25, amlodipine 2.5, atorvastatin 40 ?? Issues: ?? 1. CAD: Appears stable on ASA, BB, high intensity statin. Not on ANNAMARIE/ARB, possibly secondary to renal Tx 2. HTN: unreliable BP readings at the moment. Discussed goal of < 140/90. Some of his home readings spiked pretty high if they are to be believed. He has room on the CCB and/or ANNAMARIE/ARB could be added. 3. Atrial flutter: remains on eliquis. Last ECG with sinus sakina. Might be able to consider stopping but need more info. 4. Cardiomyopathy: may have been a tachymyopathy. We need a repeat echo and ECG. Plan for this in 3months. ?? -echo and ECG in 3 months. SUBJECTIVE: I spoke with Mr Bolden by phone today. He seems to be doing quite well. States that he is very active. 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 States that he just completed one and is now working on projects at his home. He says he is very active with no cardiac symptoms. Denies any chest pain or significant shortness of breath. He recently came into [facility] for echo follow-up. In the past, his LVEF was as low as 30% and later improved to 45%. Currently back to normal at 59%. Mild noted (see below). He has back surgery at [facility] in May 2020. At that time, telemetry confirmed NSR. Meds: Current Outpatient Medications Medication Sig Dispense Refill ??? ascorbic acid, Vitamin C, (Vitamin C) 500 mg Tablet Take 1 tablet by mouth 3 times daily. 270 tablet 2 ??? multivitamin with minerals and lutein Tablet Take 2 tablets by mouth daily. 180 tablet 2 ??? Magnesium Gluconate 27 mg magnesium (500 mg) Tablet TAKE TWO TABLETS BY MOUTH EVERY MORNING, ONE TABLET AT NOON, AND TWO TABLETS EVERY EVENING 150 tablet 11 ??? aspirin EC 81 mg Tablet, Delayed Release (E.C.) Take 81 mg by mouth daily. ??? calciTRIoL (Rocaltrol) 0.5 mcg Capsule Take 1 capsule by mouth daily. 90 capsule 3 ??? tacrolimus (Prograf) 1 mg Capsule TAKE TWO CAPSULES BY MOUTH EVERY MORNING AND ONE CAPSULE NIGHTLY 90 capsule 11 ??? mycophenolate (Cellcept) 250 mg Capsule Take 1 capsule by mouth 2 times daily. 60 capsule 11 ??? apixaban (Eliquis) 5 mg Tablet Take 1 tablet by mouth 2 times daily. 180 tablet 1 ??? metoprolol succinate XL (Toprol-XL) 25 mg Tablet Sustained Release 24 hr Take 1 tablet by mouthdaily. 90 tablet 1 ??? atorvastatin (Lipitor) 40 mg Tablet Take 1 tablet by mouth every evening. 90 tablet 3 ??? glipiZIDE XL (Glucotrol XL) 10 mg Tablet Extended Rel 24 hr Take 10 mg by mouth daily. ??? amLODIPine (Norvasc) 2.5 mg Tablet Take 2.5 mg by mouth daily. ??? nitroGLYcerin (NITROSTAT) [...] Tablet Take 137 mcg by mouth daily. Telephone visit. Recent echo (12/20/2020): ?? 1. Mild concentric left ventricular hypertrophy is [...] regional wall motion abnormalities on today's study) ASSESSMENT / PLAN: Pleasant 69 year old male.?S/p kidney transplant in 2016. ? The patient did not have a significant cardiac history but was admitted to [facility] in January 2019 with newly diagnosed AFlutter [...] 2.5, atorvastatin 40 ?? Issues: ?? 1. CAD: Appears stable on ASA, BB, high intensity statin. Not on ANNAMARIE/ARB, possibly secondary to renal Tx 2. HTN: noted to be elevated at the time of the echo, 154/62 (12/2020); other most recent readings: 131/66 (10/2020), 182/67 (may have had pain due to back problems at that time, 05/2020). 3. Atrial flutter: remains on eliquis. Tele with sinus rhythm. Might be able to consider stopping but would want holter/zio. 4. Cardiomyopathy: resolved tachymyopathy. Continue with BB. Follow-up: 6 months or prn Byron Brown MD, [facility] Cardiovascular Medicine [facility] Clinic scheduling: Trinidad John [phone] Clinic Team Nurse: Anel Proctor RN [phone] The total time associated with this visit was 20 minutes. documented in this encounter Plan of Treatment Upcoming Encounters Date Type Department Care Team (Late st Contact Info) Description 04/15/2024 10:00 AM EDT Hospital Encounter [place] [address] Arrived documented as of this encounter Goals [...] encounter Visit Diagnoses Diagnosis Coronary artery disease involving samish heart, unspecified vessel or lesion type, unspecified whether angina present documented in this encounter Care Teams Pressure Testing Technician Relationship Specialty Start Date End Date Urbano Denis DO [address] [place] [address] PCP - General 09/03/12 03/17/22 Ruchi Valles RN Nurse Clinic Transplant Surgery 07/30/15 documented as of this encounter
--- OUTSIDE RECORDS SUMMARY | 2024-02-14 11:19 | XMS_ITS | Encounter Summary ---
Author Organization [facility] [place] [address] Care Team Providers Care Brake Repairer Hydraulic Name Role Phone Urbano Denis DO Primary Care Provider Encounter Details Date Type Department Care Team (Late st Contact Info) Description 01/10/2021 Notes Only Solid Organ Transplant at [facility] [place] [address] Anabella Bright Social History Tobacco Use Types [...] encounter Progress Notes * Anabella Bright - 01/10/2021 3:03 PM EDT Transplant Crayon Sorting Machine Feeder Note: Blue Medicare Advantage Plan effective 07/06/2020. Process Prior auth for Immunos under the drug planlisted on this card. This will produce a denial under part D letter that also includes verbiage we have approved this under your part B benefit. The pharmacy will run claim through the part D coverage/information on the insurance card (media tab 12/20/2020)). When billed correctly he has 100% cov erage for part B services, that includes immunos. documented in this encounter Plan of Treatment Upcoming Encounters Date Type Department Care Team (Late st Contact Info) Description 04/15/2024 10:00 AM EDT Hospital Encounter Non-Invasive [place] [address] Arrived documented as of this encounter Goals Goal Patient Goal Type Associated Problems Recent Progress Patient-Stated? Author DH Home Medication Compliance and Understanding Patient Facing Action Plan On track( 017 10:41 AM EDT) No Selena Cisneros, [facility] Note: Patient Goal: Clear hepatitis C Timeframe to meet goal: within 12 weeks of therapy documented as of this encounter Visit Diagnoses Not on filedocumented in this encounter Care Teams Brake Repairer Hydraulic Relationship Specialty Start Date End Date Urbano eDnis DO [address] [place] [address] PCP - General 09/03/12 03/17/22 Ruchi Valles RN Nurse Clinic Transplant Surgery 07/30/15 documented as of this encounter
--- OUTSIDE RECORDS SUMMARY | 2024-02-14 11:19 | XMS_ITS | Encounter Summary ---
Author Organization [facility]ly [facility] [place] [address] Care Team Providers Care Wellness Ambassador Name Role Phone Urbano Denis DO Primary Care Provider Encounter Details Date Type Department Care Team (Late st Contact Info) Description 03/19/2021 Telephone [place] [phone] Marisela Metcalf, RN Social History Tobacco Use [...] Telephone Encounter - Marisela Metcalf RN - 03/20/2021 4:05 PM EDT I contacted Yash at the request of Dr. Eagle to let him know that his labs indicated that he is dehydrated and he needs to ensure adequate fluid intake to aid in healing from his recent hospitalization. I spoke with Yash's Mara and relayed the above. She agreed Yash is not drinking enough fluids and she will try to help remind him to drink more. We also discussed Yash's current diet. He is eating large amounts of carbs and concentrated sweets. She found a bag of hard candies (not sugar free) in his truck; it is unclear how many candies he is drinking a day. We discussed how this can effect his fluid status. She will continue to try to work with him to reduce his carb intake and cut out more sugars (he really likes his ice cream). I also confirmed with Mara all Yash's BP medications. A few medications were changed during admission and he was only given 30 day supplies with no refills. I re-ordered all medications with the updated dosing. We discussed the importance of good BP control to help prevent another brain bleed. All Mara's questions were answered, she will relay everything to Yash and call back with any new questions or concerns. documented in this encounter Plan of Treatment Upcoming Encounters Date Type Department Care Team (Late st Contact Info) Description 04/15/2024 10:00 AM EDT Hospital Encounter [place] [address] Arrived documented as of this encounter Goals [...] fibrillation documented in this encounter Care Teams Wellness Ambassador Relationship Specialty Start Date End Date Urbano Denis DO [address] [place] [address] PCP - General 09/03/12 03/17/22 Ruchi Valles RN Nurse Clinic Transplant Surgery 07/30/15 documented as of this encounter
--- OUTSIDE RECORDS SUMMARY | 2024-02-14 11:19 | XMS_ITS | Encounter Summary ---
Author Organization [facility] [place] [address] Care Team Providers Care Ice Handler Name Role Phone AdeelUrbano boland Primary Care Provider Encounter Details Date Type Department Care Team (Latest Contact Info) Description 09/04/2020 Orders Only [place] [phone] Tal Eagle MD [facility] DR TRANSPLANT [place] [address] H/O kidney transplant; Vitamin D deficiency; FDC current use of 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 drug Social History [...] AM EDT Hospital Encounter Non[place] [phone] Arrived documented as of this encounter Goals Goal Patient Goal Type Associated Problems Recent Progress Patient-Stated? Author [facility] Medication Compliance and Understanding Patient Facing Action Plan On track( 017 10:41 AM EDT) Selena Scott, [facility] Note: Patient Goal: Clear hepatitis C Timeframe to meet goal: within 12 weeks of therapy documented as of this encounter Visit Diagnoses Diagnosis H/O kidney transplant Kidney replaced by transplant Vitamin D deficiency Unspecified vitamin D deficiency continuous churn buttermaker current use of 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 drug documented in this encounter Care Teams Ice Handler Relationship Specialty Start Date End Date Urbano Denis DO [facility] [address] [place] [address] PCP - General 09/03/12 03/17/22 Ruchi Valles RN Nurse Clinic Transplant Surgery 07/30/15 documented as of this encounter
--- OUTSIDE RECORDS SUMMARY | 2024-02-14 11:19 | XMS_ITS | Encounter Summary ---
[facility] [place] [address] Care Team Providers Care Ignition Specialist Name Role Phone Urbano Denis DO Primary Care Provider Encounter Details Date Type Department Care Team (Late st Contact Info) Description 02/25/2021 External Results [place] [phone] Social History Tobacco Use Types Packs/Day Years [...] AM EDT Hospital Encounter [place] [address] Arrived documented as of this encounter Goals Goal Patient Goal Type Associated Problems Recent Progress Patient-Stated? Author [facility] Medication Compliance and Understanding Patient Facing Action Plan On track( 017 10:41 AM EDT) No Selena Cisneros, [facility] Note: Patient Goal: Clear hepatitis C Timeframe to meet goal: within 12 weeks of therapy documented as of this encounter Procedures Procedure Name Priority Date/Time Associated Diagnosis Comments LAB SCAN Routine 02/22/2021 documented in this encounter Results * Scan Doc: Lab (02/22/2021) Historical Provider MD PAIZ MGR SCAN EX T ORDR/RSLT documented in this encounter Visit Diagnoses Not on filedocumented in this encounter Care Teams Ignition Specialist Relationship Specialty Start Date End Date Urbano Denis DO [address] [place] [address] [address] [place] [address] PCP - General 09/03/12 03/17/22 Ruchi Valles RN Nurse Clinic Transplant Surgery 07/30/15 documented as of this encounter
--- OUTSIDE RECORDS SUMMARY | 2024-02-14 11:19 | XMS_ITS | Encounter Summary ---
Author Organization [facility] [place] [address] Care Team Providers Care Negative Stripper Name Role Phone Urbano Denis DO Primary Care Provider Encounter Details Date Type Department Care Team (Late st Contact Info) Description 02/25/2021 9:15 PM EDT Ancillary Procedure Radiology [place] [address] Sonia Stewart MD [facility] [place] [address] Social History Tobacco Use Types Packs/Day Years [...] AM EDT Hospital Encounter Non-Invasive [place] [address] Arrived documented as of this encounter Goals Goal Patient Goal Type Associated Problems Recent Progress Patient-Stated? Author [facility] Medication Compliance and Understanding Patient Facing Action Plan On track( 017 10:41 AM EDT) Selena Scott, [facility] Note: Patient Goal: Clear hepatitis C Timeframe to meet goal: within 12 weeks of therapy documented as of this encounter Procedures Procedure Name Priority Date/Time Associated Diagnosis Comments FILM LIBRARY STORAGE ONLY CT CHEST ABDOMEN PELVIS Routine 02/25/2021 9:09 PM EDT documented in this encounter Results * Film Library- Storage Only CT Chest Abdomen Pelvis (02/25/2021 9:09 PM EDT) Narrative RAD - 02/25/2021 9:09 PM EDT This exam is auto-finalizing. It's purpose is for storage only. Sonia Stewart MD [facility] [place] LIBRARY ORD ERABLES [place] documented in this encounter Visit Diagnoses Not on filedocumented in this encounter Care Teams Negative Stripper Relationship Specialty Start Date End Date Urbano Denis DO [address] [place] [address] PCP - General 09/03/12 03/17/22 Ruchi Valles RN Nurse Clinic Transplant Surgery 07/30/15 documented as of this encounter
--- OUTSIDE RECORDS SUMMARY | 2024-02-14 11:19 | XMS_ITS | Encounter Summary ---
Author Organization [place] [address] Care Team Providers Care Income Tax Advisor Name Role Phone Urbano Denis DO Primary Care Provider [phone] Encounter Details Date Type Department Care Team (Late st Contact Info) Description 02/25/2021 9:10 PM EDT Ancillary [place] [address] Sonia Stewart MD [facility] [place] [address] Social History Tobacco Use Types Packs/Day Years [...] AM EDT Hospital Encounter Non[place] [address] Arrived documented as of this encounter Goals Goal Patient Goal Type Associated Problems Recent Progress Patient-Stated? Author [facility] Medication Compliance and Understanding Patient Facing Action Plan On track( 017 10:41 AM EDT) Selena Scott, [facility] Note: Patient Goal: Clear hepatitis C Timeframe to meet goal: within 12 weeks of therapy documented as of this encounter Procedures Procedure Name Priority Date/Time Associated Diagnosis Comments FILM LIBRARY STORAGE ONLY CT HEAD Routine 02/25/2021 9:08 PM EDT documented in this encounter Results * Film Library- Storage Only CT Head (02/25/2021 9:08 PM EDT) Narrative RAD - 02/25/2021 9:08 PM EDT This exam is auto-finalizing. It's purpose is for storage only. Sonia Stewart MD [facility] [place]M LIBRARY ORD ERABLES [place], [place] documented in this encounter Visit Diagnoses Not on filedocumented in this encounter Care Teams Income Tax Advisor Relationship Specialty Start Date End Date Urbano Denis DO [address] [place] [address] PCP - General 09/03/12 03/17/22 Ruchi Valles RN Nurse Clinic Transplant Surgery 07/30/15 documented as of this encounter
--- OUTSIDE RECORDS SUMMARY | 2024-02-14 11:19 | XMS_ITS | Encounter Summary ---
[place] [address] Care Team Providers Care Casing Blower Name Role Phone Adeel Urbano KIRBY Primary Care Provider Encounter Details Date Type Department Care Team (Late st Contact Info) Description 09/04/2020 Telephone [place] [phone] Devi Preciado Social History Tobacco Use Types [...] AM EDT Hospital Encounter Non[place] [address] Arrived documented as of this encounter Goals Goal Patient Goal Type Associated Problems Recent Progress Patient-Stated? Author [facility] Medication Compliance and Understanding Patient Facing Action Plan On track( 017 10:41 AM EDT) No Selena Cisneros, [facility] Note: Patient Goal: Clear hepatitis C Timeframe to meet goal: within 12 weeks of therapy documented as of this encounter Visit Diagnoses Not on filedocumented in this encounter Care Teams Casing Blower Relationship Specialty Start Date End Date Urbano Denis DO [address] [place] [address] [address] [facility] [address] [place] [address] PCP - General 09/03/12 03/17/22 Ruchi Valles RN Nurse Clinic Transplant Surgery 07/30/15 documented as of this encounter
--- OUTSIDE RECORDS SUMMARY | 2024-02-14 11:19 | XMS_ITS | Encounter Summary ---
Author Organization [facility] [place] [address] Care Team Providers Care Ore Crusher Name Role Phone Urbano Denis DO Primary Care Provider Encounter Details Date Type Department Care Team (Late st Contact Info) Description 04/05/2021 Telephone [place] [phone] Marisela Metcalf RN Social History Tobacco Use Types Packs/Day [...] Telephone Encounter - Marisela Metcalf RN - 04/05/2021 10:47 AM EDT I contacted pt's Mara to get an update on Yash. He is currently admitted for diverticulitis at [facility]. I assured Mara that CT scanwas re-asurring regarding his kidney. Mara feels better knowing we are aware and involved in Yash's care. I asked her to call at any timewith questions or concerns. documented in this encounter Plan of Treatment Upcoming Encounters Date Type Department Care Team (Late st Contact Info) Description 04/15/2024 10:00 AM EDT Hospital Encounter Non-[place] [address] Arrived documented as of this encounter Goals [...] on filedocumented in this encounter Care Teams Ore Crusher Relationship Specialty Start Date End Date Urbano Denis DO [address] [place] [address] PCP - General 09/03/12 03/17/22 Ruchi Valles RN Nurse Clinic Transplant Surgery 07/30/15 documented as of this encounter
--- OUTSIDE RECORDS SUMMARY | 2024-02-14 11:19 | XMS_ITS | Encounter Summary ---
Author Organization [facility] [place] [address] Care Team Providers Care Community Resource Consultant Name Role Phone Urbano Denis DO Primary Care Provider Encounter Details Date Type Department Care Team (Late st Contact Info) Description 02/27/2021 Telephone [place] [phone] Marisela Metcalf, RN Social History Tobacco Use [...] Telephone Encounter - Marisela Metcalf RN - 02/27/2021 9:53 AM EDT I contacted pt's Mara to get an update on his condition. Mara reports that Yash was admitted to [facility] on Thursday night after his CT scan showed a brain bleed.He is currently in the ICU for observation but over all doing OK. They are holding his blood thinners for the time being. I asked Mara to keep us updated on Yash's condition. Once discharged I will request in patient record from [facility] and determine if follow up is needed with Dr. Eagle. All Mara's questions were were answered; no other concerns at this time. documented in this encounter Plan of Treatment Upcoming Encounters Date Type Department Care Team (Late st Contact Info) Description 04/15/2024 10:00 AM EDT Hospital Encounter Non-[place] [address] Arrived documented as of this encounter Goals [...] on filedocumented in this encounter Care Teams Community Resource Consultant Relationship Specialty Start Date End Date Urbano Denis DO [address] [place] [address] [address] [place] [address] PCP - General 09/03/12 03/17/22 Ruchi Valles RN Nurse Clinic Transplant Surgery 07/30/15 documented as of this encounter
--- OUTSIDE RECORDS SUMMARY | 2024-02-14 11:19 | XMS_ITS | Encounter Summary ---
Author Organization [facility] [place] [address] Care Team Providers Care Farm Mortgage Agent Name Role Phone Urbano Denis DO Primary Care Provider Encounter Details Date Type Department Care Team (Late st Contact Info) Description 12/26/2020 Notes Only [place] [address] Anabella Bright Social History Tobacco Use Types [...] encounter Progress Notes * Anabella Bright - 12/26/2020 3:18 PM EDT PA Needed: Medication: TACROLIMUS 1 MG AND MYCOPHENOLATE 250 MG Insurance: [employer] MEDICARE ADVANTAGE/[employer]HEM RX Phone: Tank Car Loader: [id number] Reference #: TACRO- REF#[id number] MMF - REF#[id number] Outcome: DENIED UNDER PART D, APPROVED UNDER PART B, effective 12/26/2020 valid one year. Placed call to Mara to advise, she requested I call to backdate auth so her prior fills can be rebilled - they are supposed to have 100% coverage for part B meds. Mara requested mag gluc, vitamin C 500 mg 3x day, and Centrum Silver 2x day be ordered as prescriptions and prior auth submitted to insurance. Communication to nursing team to process orders. Advised Mara that typically vitamins will not get approved, but I will submit per her request. Advised Mara that magnesium gluconate is out of stock at the Pharmacy and she needs to check other pharmacies and online as we have no date of when it will be available due to a national shortage. She asked to have someone call regarding alternatives if she can't find magnesium gluconate. Communication to nurse to follow up. documented in this encounter Plan of Treatment Upcoming Encounters Date Type Department Care Team (Late st Contact Info) Description 04/15/2024 10:00 AM EDT Hospital Encounter Non-Invasive [place] [address] Arrived documented as of this encounter Goals [...] on filedocumented in this encounter Care Teams Farm Mortgage Agent Relationship Specialty Start Date End Date Urbano Denis DO [address] [place] [address] [address] [facility] [address] [place] [address] PCP - General 09/03/12 03/17/22 Ruchi Valles RN Nurse Clinic Transplant Surgery 07/30/15 documented as of this encounter
--- OUTSIDE RECORDS SUMMARY | 2024-02-14 11:19 | XMS_ITS | Encounter Summary ---
[place] [address] Care Team Providers Care Senior Center Director Name Role Phone Urbano Denis DO Primary Care Provider [phone] Encounter Details Date Type Department Care Team (Late st Contact Info) Description 02/26/2021 Ancillary Procedure [place] [address] Urbano Denis DO [address] [place] [address] Social History Tobacco Use Types Packs/Day Years [...] AM EDT Hospital Encounter [place] [address] Arrived documented as of this encounter Goals Goal Patient Goal Type Associated Problems Recent Progress Patient-Stated? Author [facility] Medication Compliance and Understanding Patient Facing Action Plan On track(03/21/2 017 10:41 AM EDT) Selena Scott, [facility] Note: Patient Goal: Clear hepatitis C Timeframe to meet goal: within 12 weeks of therapy documented as of this encounter Procedures Procedure Name Priority Date/Time Associated Diagnosis Comments FILM LIBRARY STORAGE ONLY MR HEAD Routine 02/26/2021 12:00 AM EDT documented in this encounter Results * Film Library- Storage Only MR Head (02/26/2021 12:00 AM EDT) Narrative [facility] - 05/27/2021 9:07 AM EST This exam is auto-finalizing. It's purpose is for storage only. Urbano Denis DO IMG FILM LIBRARY ORD ERABLES [place], [place] documented in this encounter Visit Diagnoses Not on filedocumented in this encounter Care Teams Senior Center Director Relationship Specialty Start Date End Date Urbano Denis DO [address] [place] [address] [address] [place] [address] PCP - General 09/03/12 03/17/22 Ruchi Valles RN Nurse Clinic Transplant Surgery 07/30/15 documented as of this encounter
--- OUTSIDE RECORDS SUMMARY | 2024-02-14 11:19 | XMS_ITS | Encounter Summary ---
Author Organization [facility] [place] [address] Care Team Providers Care Retail Pos Specialist Name Role Phone Urbano Denis DO Primary Care Provider [phone] Encounter Details Date Type Department Care Team (Late st Contact Info) Description 02/25/2021 Telephone [place] [address] Radha Espinoza, FORMULATOR [facility] [place] [address] Social History Tobacco Use Types Packs/Day Years [...] Telephone Encounter - Radha Espinoza, RN - 02/25/2021 3:16 PM EDT Called Mara back. Explained that Dr. Eagle reviewed the lab work. His total bilirubin is a bitelevated at 3.0 yet not significantly from where he has been trending. Also he appears a bit dehydrated so to encourage fluid. When asked if the patient had any confusion, Mara explained that he appears a bit off and has been sleeping for 3 hours and awake for 1-2 hours and then back to sleep. Sh tiny has been in touch with his PCP and has appt scheduled for . Explained that if he continues with worsening confusion, not taking in PO or other things that are concerning, he should be seen in the ED immediately. Questions answered and verbalized understanding. documented in this encounter Plan of Treatment Upcoming Encounters Date Type Department Care Team (Late st Contact Info) Description 04/15/2024 10:00 AM EDT Hospital Encounter Non[place] [address] Arrived documented as of this encounter Goals Goal Patient Goal Type Associated Problems Recent Progress Patient-Stated? Author [facility] Medication Compliance and Understanding Patient Facing Action Plan On track( 017 10:41 AM EDT) No Selena Cisneros, [facility] Note: Patient Goal: Clear hepatitis C Timeframe to meet goal: within 12 weeks of therapy documented as of this encounter Visit Diagnoses Not on filedocumented in this encounter Care Teams Retail Pos Specialist Relationship Specialty Start Date End Date Urbano Denis DO [address] [facility] 1 [place] [address] PCP - General 09/03/12 03/17/22 Ruchi Valles RN Nurse Clinic Transplant Surgery 07/30/15 documented as of this encounter
--- OUTSIDE RECORDS SUMMARY | 2024-02-14 11:19 | XMS_ITS | Encounter Summary ---
[place] [address] Care Team Providers Care Recreational Vehicle Resort Manager Name Role Phone Urbano Denis DO Primary Care Provider + [phone] Reason for Referral * Diagnostic Test (Routine) - Closed Specialty Diagnoses / Procedures Referred By Contac t Referred To Contact Cardiology Diagnoses Cardiomyopathy, unspecified type Procedures Echocardiogram Transthoracic([facility]) Byron Brown MD [facility] [place] [address] [facility] [place] [address] Referral ID Status Reason Start Date Expiration Date V isits Requested Visits Authorized [id number] Closed Specialty Service Requested 09/14/2020 09/14/2021 1 1 Encounter Details Date Type Department Care Team (Late st Contact Info) Description 09/14/2020 10:00 AM EST TH Visit (TeleHealth) Cardiology at [address] [address] Byron Brown MD [facility] [place] [address] Cardiomyopathy, unspecified type Social History [...] Progress Notes * Byron Brown MD - 09/14/2020 10:00 AM EST Images from the original note were not included. [facility] [place] [address] CARDIOLOGY/ VASCULAR OUTPATIENT NOTE Ethel Denis, DO TELEHEALTH VISIT : From my prior note in November 2019: Pleasant 69 year old male. S/p kidney transplant in 2016. ? The patient did not have a significant cardiac history but was admitted to [facility] in January 2019 with newly diagnosed AFlutter and a NSTEMI. ??He underwent cardiac cath and PCI to an OM lesion. ??LVEF was initially 30% (while in AFL with RVR) - but improved one week later to 45%. ? His hospitalization was complicated by a subsequent infection (enterococcus bacteremia) and he required 2 weeks of IV antibiotics. ? Issues: ? 1. Anticoagulation : There is some minor confusion on this issue. His notes that prior to his NSTEMI, the patient was placed on plavix by a neurologist at [facility] (Shannan Redmond). There was some question about CVA/TIA at that time. He was later seen by a tipple mechanic at [facility] (Petar) who obtained a ZIO that did not demonstrate any AF. At the time of his NSTEMI diagnosis in January 2019, thepatient was noted to have atrial flutter and was started on Eliquis as well as plavix for the new coronary stents. The one year princess for coronary stents will be complete by February 04, 2020. He has nothad any significant bleeding issues. ?? We discussed the following: ?? -Stop plavix on Feb 04, 2020; start ASA 81 mg po qd -Continue with Eliquis for the history of PAF (AFL/AF) and history of TIA/CVA -follow-up with neuro at some point may be reasonable. ?? 2. Continue other cardiac meds as above. SUBJECTIVE: Patient lives with his in [facility]. 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 With these activities, he has no chest pain, no significant shortness of breath. No NTG use. Denies any palpitations. It is noted that he remains on Eliquis at this time due to the history of atrial flutter. His most recent ECG in 02/2020 demonstrated sinus sakina 50s. He received his first Covid shot last week. He is 5 years s/p kidney transplant. He has a BP cuff at home (wrist cuff) that he did not seem confident in. He had some readings as high as 160s, 200, but others of 112. He states that at his routine follow-up with his PCP, his BP wasfine. We discussed that he might need a new cuff and he should keep a recording in a notebook. Meds: Current Outpatient Medications Medication Sig Dispense Refill ??? tacrolimus (Prograf) 1 mg Capsule TAKE TWO CAPSULES BY MOUTH EVERY MORNING AND ONE CAPSULE NIGHTLY 90 capsule 0 ??? metoprolol succinate XL (Toprol-XL) 25 mg Tablet Sustained Release 24 hr Take 1 tablet by mouthdaily. 90 tablet 1 ??? mycophenolate (Cellcept) 250 mg Capsule TAKE ONE CAPSULE BY MOUTH TWICE A DAY 60 capsule 1 ??? apixaban (Eliquis) 5 mg Tablet Take 1 tablet by mouth 2 times daily. 180 tablet 4 ??? senna-docusate (Pericolace) 8.6-50 mg Tablet Take 2 tablets by mouth 2 times daily as needed for Constipation. 60 tablet 0 ??? oxyCODONE (Roxicodone) 5 mg Tablet Take 1 tablet by mouth every 4 hours as needed for Pain (moderate pain (4-6)). 20 tablet 0 ??? calciTRIoL (Rocaltrol) 0.5 mcg Capsule TAKE ONE CAPSULE BY MOUTH EVERY DAY 90 capsule 1 ??? atorvastatin (Lipitor) 40 mg Tablet Take 1 tablet by mouth every evening. 90 tablet 3 ??? potassium phosphate, monobasic, (K-Phos Original) 500 mg Tablet, Soluble Take 2 tablets by mouth 2 times daily. DISSOLVE IN WATER PRIOR TO ADMINISTRATION 360 tablet 3 ??? Magnesium Gluconate 27 mg magnesium (500 mg) Tablet Take two tablets in am- one tablet noon - two tablets evening 450 tablet 3 ??? glipiZIDE XL (Glucotrol XL) [...] Take 137 mcg by mouth daily. ??? ascorbic acid, vitamin C, (VITAMIN C) 500 mg Tablet Take 1 tablet by mouth 3 times daily. 30 tablet 3 Results for MABLE ETHELDIANNA FERRARA ( ) as of 09/14/2020 10:25 Ref. Range 04/11/2020 14:45 Sodium Latest Ref Range: 135 - 145 mmol/L 138 Potassium Latest Ref Range: 3.5 - 5.0 mmol/L 3.4 (L) Chloride Latest Ref Range: 98 - 107 mmol/L 99 CO2 Latest Ref Range: 22 - 31 mmol/L 26 Anion Gap Latest Ref Range: 5 - 15 mmol/L 13 BUN Latest Ref Range: 10 - 20 mg/dL 16 Creatinine Latest Ref Range: 0.80 - 1.50 mg/dL 1.22 Estimated GFR Latest Ref Range: >=60 mL/min/1.73 m?? 59 (L) eGFR Latest Ref Range: >=60 mL/min/1.73 m?? 69 ??Echo from 02/2019: 1. Limited TTE today 2. There is normal global left ventricular systolic function. 3. The quantitative left ventricular ejection fraction by biplane Elizabeth's method is 56%. The visually estimated EF 40-50% There are left ventricular segmental wall motion abnormalities present, as shown in the diagram below. 4. Right ventricular chamber size, wall thickness, and systolic function are within normal limits. 5. Borderline concentric left ventricular hypertrophy is observed. There is no evidence of LVOT obstruction. There is mild dilatation of the aortic root. There is mild dilatation of the ascending aorta. 6. The aortic valve is tricuspid. 7. Mild aortic leaflet calcification is visualized. Systolic excursion of the aortic valve cusps is reduced. Non-coronary cusp is not opening. The mitral valve leaflets are mildly thickened. There is posterior mitral annular calcification. There is mild to moderate (1-2+/4+) mitral regurgitation present. The mitral regurgitant jet is posteriorly directed. There is mild to moderate (1-2+/4+) tricuspid regurgitation present. No obvious vegetations are seen. 8. A trivial pericardial effusion is visualized. The estimated pulmonary artery systolic pressure is 29 mmHg.plus RAP. When compared to the prior 02/01/19 study, the current study has limited views for a comprehensive wall motion analysis, but overall LV function and segmental wall motion abnomalities have improved. ?? ASSESSMENT / PLAN: Pleasant 69 year old male. S/p kidney transplant in 2016. ? The patient did not have a significant cardiac history but was admitted to [facility] in January 2019 with newly diagnosed AFlutter and a NSTEMI. ??He underwent cardiac cath and PCI to an OM lesion. ??LVEF was initially 30% (while in AFL with RVR) - but improved one week later to 45%. ? Cardiac meds include: -ASA 81, apixaban, met sux 25, amlodipine 2.5, atorvastatin 40 Issues: 1. CAD: Appears stable on ASA, BB, [...] and ECG. Plan for this in 3months. -echo and ECG in 3 months. Byron Brown MD, [facility] Cardiovascular Medicine [facility] scheduling: Trinidad John [phone] Clinic Team Nurse: Anel Proctor RN [phone] I provided care to the patient today video conference. The total time associated with this visit was 30 minutes. documented in this encounter Plan of Treatment Upcoming Encounters Date Type Department Care Team (Late st Contact Info) Description 04/15/2024 10:00 AM EDT Hospital Encounter Non-[place]vasive [place] [address] Arrived Scheduled Orders Name Type Priority Associated Diagnoses Orde r Schedule EKG 12 Lead ECG Routine Cardiomyopathy, unspecified type Ordered: 09/14/2020 documented as of this encounter Goals Goal Patient Goal Type Associated Problems Recent Progress Patient-Stated? Author DH Home Medication Compliance and Understanding Patient Facing Action Plan On track( 017 10:41 AM EDT) No Selena Cisneros, [facility] Note: Patient Goal: Clear hepatitis C Timeframe to meet goal: within 12 weeks of therapy documented as of this encounter Results * ECHO COMPLETE (12/20/2020 1:28 PM EDT) Anatomical Region Laterality Modality Other 12/20/2020 Narrative 12/20/2020 5:00 PM EDT Procedure: ?Transthoracic Echocardiogram Patient: ?MABLE DAVENPORT P ? (Age): 1950(70y) Med Rec#: ? [id number] ?Sex: ?M ? Site Loc: ? [facility] ?Ht / Wt: ??180(cm)/99.34(k Pt. Loc: ?Echo Lab ?BSA: ?2.19 Study Date: ?? 12/20/2020 ?Pt. Type: Outpatient Tape: ? Referring: Byron Brown ([id number]) Reading: Liseth Calero ([id number]) Game Designer/Creative Director: Anali Boudreaux Diagnosis: *Cardiomyopathy, unspecified (I42.9) BP: ? 154/62 SUMMARY: 1. Mild concentric left ventricular hypertrophy [...] aortic valve stenosis.The mean trans-valvular gradient across ??the aortic valve is 11 mmHg. DI=0.51, SHANIA 1.95cm2. 5. See remainder of report for additional findings. 6. Compared to the prior studies the left ventricular global and regional wall motion has normalized. 7. (The technology driving the wall motion diagram is not functioning. Disregard the picture. There are no regional wall motion abnormalities on today's study) Findings ? : Study Quality: ? Adequate Left Ventricle: ? The left ventricle is probably normal in size. ?Mild concentric left ventricular hypertrophy is observed. ?There is no evidence of LVOT obstruction. ?No ventricular septal defect is visualized. ?There is normal global left ventricular systolic function. ?The quantitative left ventricular ejection fraction by biplane Elizabeth's method is 59%. ?There are no left ventricular segmental wall motion abnormalities. ?Assessment of diastolic function is indeterminate. ?A false chord is observed in the left ventricle. Left Atrium: ? The left atrium is moderately dilated. Right Ventricle: ? Right ventricular chamber size, wall thickness, and systolic function are within normal limits. ?The estimated pulmonary artery systolic pressure is 22 mmHg.plus RAP ?The estimated right atrial pressure is 3 mmHg. Right Atrium: ? The right atrium is mildly dilated. Aortic Valve: ? The aortic valve is tricuspid. ?Mild aortic leaflet calcification is visualized. ?Systolic excursion of the aortic valve cusps is reduced. ?Systolic excursion of the right coronary cusp is reduced. ?There is aortic annular calcification. ?The peak instantaneous trans-valvular gradient across ??the aortic valve is 18 mmHg. ?The mean trans-valvular gradient across ??the aortic valve is 11 mmHg.DI=0.51 ?There is mild aortic valve stenosis. ?There is a trace of aortic regurgitation present. Mitral Valve: ? The mitral valve leaflets are mildly thickened. ?There is posterior mitral annular calcification. ?There is mild (1+/4+) mitral regurgitation present. Tricuspid Valve: ? The tricuspid valve appears normal in structure and function. ?There is mild (1+/4+) tricuspid regurgitation present. Pulmonic Valve: ? The pulmonic valve appears normal in structure and function. Pericardium: ? A trivial pericardial effusion is visualized. Aorta: ? The aortic root is normal in size. ?There is mild dilatation of the ascending aorta. 3.9 cm Venous: ? The inferior vena cava appears normal in size. ?There is a greater than 50% respiratory change in the inferior vena cava dimension. Misc: ? See remainder of report for additional findings. ?Two-dimensional echo, limited spectral Doppler and color Doppler performed. Chambers 2D ?Value ?Units (Range) ? IVSd (2D) ? 1.4 ?cm ? LVPWd (2D) ?1.2 ?cm ? IVS:LVPW ratio (2D) 1.17 ? ratio ? RWT (2D) ?0.43 ? ratio ? RWT PW (2D) ? 0.4 ?ratio ? LVIDd (2D) ?6 ?cm ? LVIDs (2D) ?4.4 ?cm ? LVIDd (2D) index ?2.74 ? cm/m2 ? LVIDs (2D) index ?2.01 ? cm/m2 ? LV FS (2D) ?26.67 ?% ? EF Teichholz (2D) ?? 51.28 ?% ? Ao root diameter (2D3.6 ?cm (2.1 - 3.6) ? Ascending Ao ?3.9 ?cm (2 - 3.5) ? Volumes/Mass ?Value ?Units (Range) ? LA Area 4 CH ?30 ? cm2 (<21) ? RA AREA 4CH ? 20 ? cm2 ? LA ESV BP (MOD) inde52.54 ?ml/m2 ? LV ESV SP 4CH (MOD) 72.3 ? ml ? LV ESV SP 2CH (MOD) 60.4 ? ml ? LV EDV BP ? 167 ?ml ? LV ESV BP ? 67.9 ? ml ? LV EDV BP index ? 76.3 ? ml/m2 ? LV ESV BP index ? 31.02 ?ml/m2 ? BP EF (MOD) ? 59.34 ?% ? LV mass (2D) ?350.09 ? g ? LV mass (2D) index ??159.94 ? g/m2 ? Diastolic/Systolic Function ?Value ?Units (Range) ? MV E-wave Vmax ?0.79 ? m/sec ? MV deceleration [id number] ?msec ? MV A-wave Vmax ?0.34 ? m/sec ? MV E:A ratio ?2.35 ? ratio ? LV septal e' Vmax ?? 0.04 ? m/sec ? LV lateral e' Vmax ??0.08 ? m/sec ? LV average e' Vmax ??0.06 ? m/sec ? LV E:e' septal ratio19.68 ?ratio ? LV E:e' lateral rati9.84 ? ratio ? LV average E:e' rati13.12 ?ratio ? Aortic Valve ?Value ?Units (Range) ? AV Vmax ? 2.13 ? m/sec ? AV VTI ?49.5 ? cm ? AV peak gradient ?18 ? mmHg ? AV mean gradient ?11 ? mmHg ? LVOT diameter ? 2.2 ?cm ? LVOT Vmax ? 1.02 ? m/sec ? LVOT VTI ?25.4 ? cm ? LVOT peak gradient ??4 ?mmHg ? LVOT mean gradient ??3 ?mmHg ? DOI (VTI) ? 0.51 ? ratio ? DOI (Vmax) ?0.48 ? ratio ? SV LVOT ? 96.5 ? ml ? SHANIA (continuity Vmax1.82 ? cm2 ? SHANIA (continuity Vmax0.83 ? cm2/m2 ? SHANIA (continuity VTI)1.95 ? cm ? SHANIA (continuity VTI)0.89 ? cm2/m2 ? Mitral Valve ?Value ?Units (Range) ? MV PHT ?105 ?msec ? MVA (PHT) ? 2.1 ?cm2 ? Tricuspid Valve ?Value ?Units (Range) ? TR Vmax ? 2.19 ? m/sec ? TR peak gradient ?19.18 ?mmHg ? RAP ? 3 ?mmHg ? RVSP ?22 ? mmHg ? Wall Motion: Segment Name ?Rest ? Base-Anteroseptal ?? Normal ? Base-Anterior ? Normal ? Base-Anterolateral ??Normal ? Base-Posterolateral Normal ? Base-Inferior ? Normal ? Base-Inferoseptal ?? Normal ? Mid-Anteroseptal ?Normal ? Mid-Anterior ?Normal ? Mid-Anterolateral ?? Normal ? Mid-Posterolateral ??Normal ? Mid-Inferior ?Normal ? Mid-Inferoseptal ?Normal ? Burns-Septal ? Normal ? Burns-Anterior ? Normal ? Burns-Lateral ?Normal ? Burns-Inferior ? Normal ? Burns-Tip ?Normal ? This report has been electronically signed by: Liseth Calero MD ? 12/20/2020 16:59:50 Images reviewed and interpretation verified [facility] Procedure Note Liseth Calero MD - 12/20/2020 Procedure: Transthoracic Echocardiogram Patient: MABLE DORANTES(Age): 1950(70y) Med Rec#: [id number] Sex: M Site Loc: [facility] Ht / Wt: 180(cm)/99.34(k Pt. Loc: Echo Lab BSA: 2.19 Study Date: 12/20/2020 Pt. Type: Outpatient Tape: Referring: Byron Brown ([id number]) Reading: Liseth Calero ([id number]) Game Designer/Creative Director: Anali Boudreaux Diagnosis: *Cardiomyopathy, unspecified (I42.9) BP: 154/62 SUMMARY: 1. Mild concentric left ventricular hypertrophy [...] regional wall motion abnormalities on today's study) Findings : Study Quality: Adequate Left Ventricle: The left ventricle is probably normal in size. Mild concentric left ventricular hypertrophy is observed. There is no evidence of LVOT obstruction. No ventricular septal defect is visualized. There is normal global left ventricular systolic function. The quantitative left ventricular ejection fraction by biplane Elizabeth's method is 59%. There are no left ventricular segmental wall motion abnormalities. Assessment of diastolic function is indeterminate. A false chord is observed in the left ventricle. Left Atrium: The left atrium is moderately dilated. Right Ventricle: Right ventricular chamber size, wall thickness, and systolic function are within normal limits. The estimated pulmonary artery systolic pressure is 22 mmHg.plus RAP The estimated right atrial pressure is 3 mmHg. Right Atrium: The right atrium is mildly dilated. Aortic Valve: The aortic valve is tricuspid. Mild aortic leaflet calcification is visualized. Systolic excursion of the aortic valve cusps is reduced. Systolic excursion of the right coronary cusp is reduced. There is aortic annular calcification. The peak instantaneous trans-valvular gradient across the aortic valve is 18 mmHg. The mean trans-valvular gradient across the aortic valve is 11 mmHg.DI=0.51 There is mild aortic valve stenosis. There is a trace of aortic regurgitation present. Mitral Valve: The mitral valve leaflets are mildly thickened. There is posterior mitral annular calcification. There is mild (1+/4+) mitral regurgitation present. Tricuspid Valve: The tricuspid valve appears normal in structure and function. There is mild (1+/4+) tricuspid regurgitation present. Pulmonic Valve: The pulmonic valve appears normal in structure and function. Pericardium: A trivial pericardial effusion is visualized. Aorta: The aortic root is normal in size. There is mild dilatation of the ascending aorta. 3.9 cm Venous: The inferior vena cava appears normal in size. There is a greater than 50% respiratory change in the inferior vena cava dimension. Misc: See remainder of report for additional findings. Two-dimensional echo, limited spectral Doppler and color Doppler performed. Chambers 2D Value Units (Range) IVSd (2D) 1.4 cm LVPWd (2D) 1.2 cm IVS:LVPW ratio (2D) 1.17 ratio RWT (2D) 0.43 ratio RWT PW (2D) 0.4 ratio LVIDd (2D) 6 cm LVIDs (2D) 4.4 cm LVIDd (2D) index 2.74 cm/m2 LVIDs (2D) index 2.01 cm/m2 LV FS (2D) 26.67 % EF Teichholz (2D) 51.28 % Ao root diameter (2D3.6 cm (2.1 - 3.6) Ascending Ao 3.9 cm (2 - 3.5) Volumes/Mass Value Units (Range) LA Area 4 CH 30 cm2 (<21) RA AREA 4CH 20 cm2 LA ESV BP (MOD) inde52.54 ml/m2 LV ESV SP 4CH (MOD) 72.3 ml LV ESV SP 2CH (MOD) 60.4 ml LV EDV BP 167 ml LV ESV BP 67.9 ml LV EDV BP index 76.3 ml/m2 LV ESV BP index 31.02 ml/m2 BP EF (MOD) 59.34 % LV mass (2D) 350.09 g LV mass (2D) index 159.94 g/m2 Diastolic/Systolic Function Value Units (Range) MV E-wave Vmax 0.79 m/sec MV deceleration [id number] msec MV A-wave Vmax 0.34 m/sec MV E:A ratio 2.35 ratio LV septal e' Vmax 0.04 m/sec LV lateral e' Vmax 0.08 m/sec LV average e' Vmax 0.06 m/sec LV E:e' septal ratio19.68 ratio LV E:e' lateral rati9.84 ratio LV average E:e' rati13.12 ratio Aortic Valve Value Units (Range) AV Vmax 2.13 m/sec AV VTI 49.5 cm AV peak gradient 18 mmHg AV mean gradient 11 mmHg LVOT diameter 2.2 cm LVOT Vmax 1.02 m/sec LVOT VTI 25.4 cm LVOT peak gradient 4 mmHg LVOT mean gradient 3 mmHg DOI (VTI) 0.51 ratio DOI (Vmax) 0.48 ratio SV LVOT 96.5 ml SHANIA (continuity Vmax1.82 cm2 SHANIA (continuity Vmax0.83 cm2/m2 SHANIA (continuity VTI)1.95 cm SHANIA (continuity VTI)0.89 cm2/m2 Mitral Valve Value Units (Range) MV PHT 105 msec MVA (PHT) 2.1 cm2 Tricuspid Valve Value Units (Range) TR Vmax 2.19 m/sec TR peak gradient 19.18 mmHg RAP 3 mmHg RVSP 22 mmHg Wall Motion: Segment Name Rest Base-Anteroseptal Normal Base-Anterior Normal Base-Anterolateral Normal Base-Posterolateral Normal Base-Inferior Normal Base-Inferoseptal Normal Mid-Anteroseptal Normal Mid-Anterior Normal Mid-Anterolateral Normal Mid-Posterolateral Normal Mid-Inferior Normal Mid-Inferoseptal Normal Burns-Septal Normal Burns-Anterior Normal Burns-Lateral Normal Burns-Inferior Normal Burns-Tip Normal This report has been electronically signed by: Liseth Calero MD 12/20/2020 16:59:50 Images reviewed and interpretation verified [facility] Byron Brown MD ECHO ORDERABLES documented in this encounter Visit Diagnoses Diagnosis Cardiomyopathy, unspecified type Cardiomyopathy, unspecified type documented in this encounter Care Teams Recreational Vehicle Resort Manager Relationship Specialty Start Date End Date Urbano Denis DO [address] [place] [address] PCP - General 09/03/12 03/17/22 Ruchi Valles RN Nurse Clinic Transplant Surgery 07/30/15 documented as of this encounter
--- OUTSIDE RECORDS SUMMARY | 2024-02-14 11:19 | XMS_ITS | Encounter Summary ---
Author Organization [place] [address] Care Team Providers Care Front Line Supervisor Name Role Phone Urbano Denis DO Primary Care Provider + [phone] Encounter Details Date Type Department Care Team (Late st Contact Info) Description 02/25/2021 Telephone [place] [address] Radha Espinoza, DUMPSTER DRIVER [facility] [place] [address] Social History Tobacco Use Types Packs/Day Years [...] Miscellaneous Notes * Telephone Encounter - Radha Espinoza RN - 02/25/2021 1:29 PM EDT Returned Mara's call. Explained that we have requested the lab results from the urgent care visit and upon review we will reach out for any new orders. Denies fever, nausea, vomiting. Appetite is fair. Questions answered. Verbalized understanding. * Telephone Encounter - Radha Espinoza RN - 02/25/2021 1:27 PM EDT ----- Message from Barbara Josue sent at 02/25/2021 10:44 AM EDT ----- Regarding: please call Contact: His aMra called. She is really concerned that Yash has been sleeping a lot since last Thursday. She took him to express care at [facility] on Thursday. He was tested for COVID and it was negative. No fever. I have faxed a request to [facility] for labs results and urgent care notes. documented in this encounter Plan of Treatment Upcoming Encounters Date Type Department Care Team (Late st Contact Info) Description 04/15/2024 10:00 AM EDT Hospital Encounter Non[place] [address] Arrived documented as of this encounter Goals Goal Patient Goal Type Associated Problems Recent Progress Patient-Stated? Author DH Home Medication Compliance and Understanding Patient Facing Action Plan On track( 017 10:41 AM EDT) No Selena Cisneros, [facility] Note: Patient Goal: Clear hepatitis C Timeframe to meet goal: within 12 weeks of therapy documented as of this encounter Visit Diagnoses Not on filedocumented in this encounter Care Teams Front Line Supervisor Relationship Specialty Start Date End Date Urbano Denis DO [address] [place] [address] PCP - General 09/03/12 03/17/22 Hai STANLEY,Ruchi Nurse Clinic Transplant Surgery 07/30/15 documented as of this encounter
--- OUTSIDE RECORDS SUMMARY | 2024-02-14 11:19 | XMS_ITS | Encounter Summary ---
Author Organization [facility], Located Within [facility] [place] [address] Care Team Providers Care Pricing Specialist Name Role Phone Urbano Denis DO Primary Care Provider [phone] Encounter Details Date Type Department Care Team (Late st Contact Info) Description 10/08/2020 11:00 AM EDT Office Visit [place] [address] Tal Eagle MD [facility] [place] [address] Tobacco abuse counseling; H/O kidney transplant; Prophylactic immunotherapy; Aftercare following organ transplant Social History Tobacco [...] Sign Reading Time Taken Comments Blood Pressure 131/66 10/08/2020 11:06 AM EDT Pulse 54 10/08/2020 11:06 AM EDT Temperature - - Respiratory Rate - - Oxygen Saturation - - Inhaled Oxygen Concentration - - Weight 105.2 kg (232 lb) 10/08/2020 11:06 AM EDT Height - - Body Mass Index 32.36 04/11/2020 1:59 PM EDT documented in this encounter Progress Notes * Tal Eagle MD - 10/08/2020 11:00 AM EDT Transplant Nephrology Clinic Follow up Note? PATIENT:??Cody Bolden? :??1950 [place]: 10/08/2020 ? 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 History of Present Illness: ?? Interim hx reveals no hospitalizations, ED visits, new meds or allergies. Is having more GERD symptoms.Both COVID shots (09/12 and 10/03/20); can't remember if it was Pfizer or Moderna ?? 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 Previous Tx Hx: 0% PRA. Patient given Basliximab for induction. EBV +/+, CMV +/+; Rx post tx with Jannetoni for hep C and he has cleared theinfection. ?? Active Ambulatory Problems Diagnosis Date Noted ??? DM type 2 (diabetes mellitus, type 2) 09/03/2012 ??? Hypertension 09/03/2012 ??? DJD (degenerative joint disease) 09/03/2012 ??? Hematuria 09/03/2012 ??? HCV (hepatitis C virus) 05/16/2015 ??? CGN (chronic glomerulonephritis) 10/16/2014 ??? Essential hypertension 11/10/2014 ??? Hepatitis C virus infection 01/04/2015 ??? Kidney transplant infection 11/12/2015 ??? RAY (acute kidney injury) 11/27/2015 ??? UTI (urinary tract infection) 12/07/2015 ??? Fever 01/29/2016 ??? Enterococcal bacteremia 02/05/2016 ??? Ureteral stricture 04/29/2016 ??? Dehydration 05/13/2016 ??? H/O kidney transplant 06/13/2016 ??? Encounter for long-term (current) use of other medications 06/13/2016 ??? Aftercare following organ transplant 06/13/2016 ??? Sepsis 06/22/2016 ??? Immunosuppression 08/12/2016 ??? Type 2 diabetes mellitus with complication, without long-term current use of insulin 08/12/2016 ??? Weight increase 08/12/2016 ??? CAH (chronic active hepatitis) 08/25/2016 ??? Prophylactic immunotherapy 09/22/2016 ??? 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 Vitamin D deficiency 09/20/2017 ??? Debility 10/05/2017 ??? Pain of right lower extremity 10/05/2017 ??? Obesity (BMI 30.0-34.9) 11/10/2017 ??? S/P R TKA 11/25/17 Dr. Dale 11/25/2017 ??? Hydronephrosis 06/16/2018 ??? Atrial fibrillation with RVR - had flutter initially, then fib 01/31/2019 ??? Hospital discharge follow-up 03/22/2019 ??? Left leg pain 05/30/2019 ?? Resolved Ambulatory Problems Diagnosis Date Noted ??? ESRD (end stage renal disease) 04/27/2015 ??? Chronic kidney disease, stage V 05/29/2015 ??? Renal failure 09/16/2015 ??? Primary osteoarthritis of right knee 10/05/2017 ?? Past Medical History: Diagnosis Date ??? Back pain ? Colon polyp ? CVA (cerebral vascular accident) ? GERD (gastroesophageal reflux disease) ? HTN (hypertension) ? Microhematuria ? Type 2 diabetes mellitus ? Past Surgical History Past Surgical History: Procedure Laterality Date ??? PRO ANASTOMOSIS, AV, ANY SITE Left 05/09/2015 ?? AV FISTULA CREATION, DIRECT HEMODIALYSIS, ANY SITE, EG ASHWINI FISTULA UPPER EXTREMITY performed by Que Amaro MD at [facility] OR ??? PRO CYSTOURETHROSCOPY, URETER CATHETER Left 06/17/2018 ?? CYSTO, RETROGRADE, URETEROPYELOGRAPHY (WRVU 2.37) performed by Edinson Grider III, MD at [facility] OR ??? PRO REIMPLANT URETER, SINGLE URETER Left 05/20/2016 ?? @URETERONEOCYSTOSTOMY ANASTOMOSIS OF SINGLE URETER TO BLADDER performed by Santosh Arredondo MD [facility] OR ??? PRO REIMPLANT URETER, SINGLE URETER N/A 05/20/2016 ?? @URETERONEOCYSTOSTOMY ANASTOMOSIS OF SINGLE URETER TO BLADDER performed by Akhil Amaro MD at [facility] OR ??? PRO TOTAL KNEE ARTHROPLASTY Right 11/25/2017 ?? TOTAL KNEE ARTHROPLASTY (WRVU 20.72) performed by Breezy Dale MD at [facility] OR ??? PRO TRANSPLANT, PREP CADAVER RENAL GRAFT N/A 09/16/2015 ?? @PREPARATION CADAVERIC RENAL ALLOGRAFT performed by Franko Larkin MD at [facility] OR ??? PRO TRANSPLANTATION OF KIDNEY N/A 09/16/2015 ?? @KIDNEY TRANSPLANT, WITHOUT RECIPIENT NEPHRECTOMY [facility] ??? US RENAL TRANSPLANT LEFT Left 01/31/2019 ?? US Renal Transplant Left 01/31/2019 [facility]TR[facility]OUND ??? US RENAL TRANSPLANT LEFT Left 02/07/2019 ?? US Renal Transplant Left 02/07/2019 [facility]TRASOUND ? Current Outpatient Medications: ??? aspirin EC 81 mg Tablet, Delayed Release (E.C.), Take 81 mg by mouth daily., Disp: , Rfl: ??? apixaban (Eliquis) 5 mg Tablet, Take 1 tablet by mouth 2 times daily., Disp: 180 tablet, Rfl: 1 ??? tacrolimus (Prograf) 1 mg Capsule, TAKE TWO CAPSULES BY MOUTH EVERY MORNING AND ONE CAPSULE NIGHTLY, Disp: 90 capsule, Rfl: 0 ??? metoprolol succinate XL (Toprol-XL) 25 mg Tablet Sustained Release 24 hr, Take 1 tablet by mouth daily., Disp: 90 tablet, Rfl: 1 ??? mycophenolate (Cellcept) 250 mg Capsule, TAKE ONE CAPSULE BY MOUTH TWICE A DAY, Disp: 60 capsule, Rfl: 1 ??? calciTRIoL (Rocaltrol) 0.5 mcg Capsule, TAKE ONE CAPSULE BY MOUTH EVERY DAY, Disp: 90 capsule, Rfl: 1 ??? atorvastatin (Lipitor) 40 mg Tablet, Take 1 tablet by mouth every evening., Disp: 90 tablet, Rfl: 3 ??? potassium phosphate, monobasic, (K-Phos Original) 500 mg Tablet, Soluble, Take 2 tablets by mouth 2 times daily. DISSOLVE IN WATER PRIOR TO ADMINISTRATION, Disp: 360 tablet, Rfl: 3 ??? Magnesium Gluconate 27 mg magnesium (500 mg) Tablet, Take two tablets in am- one tablet noon - two tablets evening, Disp: 450 tablet, Rfl: 3 ??? glipiZIDE XL (Glucotrol XL) 10 mg Tablet Extended Rel 24 hr, Take 10 mg by mouth daily., Disp: , Rfl: ??? amLODIPine (Norvasc) 2.5 mg Tablet, Take 2.5 mg by mouth daily., Disp: , Rfl: ??? nitroGLYcerin (NITROSTAT) [...] by mouth daily., Disp: , Rfl: ??? ascorbic acid, vitamin C, (VITAMIN C) 500 mg Tablet, Take 1 tablet by mouth 3 times daily., Disp: 30 tablet, Rfl: 3 No Known Allergies Immunization History Administered Date(s) Administered ??? Hepatitis B Vaccine, unspecified formulation 04/16/2015, 05/14/2015, 06/20/2015 ??? Influenza PF, Split 06/04/2012, 05/26/2013, 04/07/2015, 08/03/2017 ??? Influenza PF, Split (High Dose) 04/23/2016 ??? Influenza Vaccine PF, Quadrivalent (6-35 Mos) 04/04/2015 ??? Pneumococcal Polyvalent 23 06/20/2014, 04/11/2015 ??? Td, adult 07/06/2000, 05/20/2011 ??? Zoster [...] for diabetics, every 5 for non diabetics [place] kidney ultrasound looking for renal cell CA, every 5 years post transplant Bone density assessment every 9-12 years post transplant Annual fasting lipid profile Annual PTH-Vit D3 assessment until normalized Annual??spot??urine for creatinine, protein, calcium, phosphate, magnesium ?? 12 organ review of systems were neither + or - ? ROS: Constitutional - No fevers, chills, weight loss Skin - No rash or itchy skin HEENT - No headaches, visual changes Resp - No cough, shortness of breath CV - No chest pain, leg swelling, difficulty breathing lying flat GI - No nausea and vomiting but has burping and reflux for last few days , no diarrhea and abdominal pain. - No change in urine output. No pain urinating or blood in urine. Neuro -??Gen'l??weakness??and easy fatigue. No numbness/ tingling in extremities. ?? PHYSICAL EXAM: Vitals Office Visit from 10/08/2020 in Solid Organ Transplant at [facility] Weight 105.2 kg (232 lb) Heart Rate 54 BP 131/66 Appearance - Alert, Comfortable. Skin - No exanthem. HEENT - Sclera white. Mucous membranes moist. Chest: Lungs clear to ausculatation w/o wheezes/ rhonchi/ crackles. Heart - S1 and S2 clear w/o murmur, gallop, or rub. JVP not elevated. Abd - Soft. + BS. No bruit. Non tender. Ext - Warm. No cyanosis. No dependent edema. Neuro - No asterixis. ? IMPRESSION/ RECOMMENDATIONS:??Mr. Bolden is a??69?yr old gentleman w/ hx of kidney transplant who presents to clinic for his annual f/u after receiving A DDKTx 09/2015 Transplant Status -s/p donor kidney transplant 5 yr post -Creatinine stable?? -Drinks??2L??fluids/day PTDM -Patient now has PTDM treatment and is under care with his??PCP??and on Glipizide Needs better dietary control ? Immunosuppression -Prograf, Cellcept Proteinuria Likely [place] kidney involvement, no nephrosis ? PO4/Mg - Kphos.??decr to 2 tabs bid (did so in September 2020) - Magnesium??gluconate [id number] TID - He can take liquid antacid OTC or zantac or Tums??for GERD as advised last year as well ?? Erythrocytosis -??cont' to observe No need of RAAS inhibition , continue hydration Close follow up? Hypertension: BP is stable; not on antihypertensive Encourage to check BP at home?? -??on??Flomax ? Hepatitis C -on Harvoni?treatment -Viral load undetectable after treatment??in June 2018? CV disease, AF/Afib Followed by Dr. Brown ? [id number] labs f/u in??September 2021 ?? ? Discussion with the patient and/or family concerned the following: ?Diagnostic results or recommended studies ?Prognosis; ?Risks and benefits of management; ?Instructions for management; ?Compliance with treatment; ?Risk factor reduction; ?Patient and family education. ? Total time?25 of 30 min??in direct face to face quitline counselor. ?? documented in this encounter Plan of Treatment Upcoming Encounters Date Type Department Care Team (Late st Contact Info) Description 04/15/2024 10:00 AM EDT Hospital Encounter [place] [phone] Arrived documented as of this encounter Goals Goal Patient Goal Type Associated Problems Recent Progress Patient-Stated? Author DH Home Medication Compliance and Understanding Patient Facing Action Plan On track( 017 10:41 AM EDT) Selena Scott, [facility] Note: Patient Goal: Clear hepatitis C Timeframe to meet goal: within 12 weeks of therapy documented as of this encounter Visit Diagnoses Diagnosis Tobacco abuse counseling Counseling on substance use and abuse H/O kidney transplant Kidney replaced by transplant Prophylactic immunotherapy Need for prophylactic immunotherapy Aftercare following organ transplant documented in this encounter Care Teams Pricing Specialist Relationship Specialty Start Date End Date Urbano Denis DO [address] [place] [address] PCP - General 09/03/12 03/17/22 Ruchi Valles RN Nurse Clinic Transplant Surgery 07/30/15 documented as of this encounter
--- OUTSIDE RECORDS SUMMARY | 2024-02-14 11:19 | XMS_ITS | Encounter Summary ---
[place] [address] Care Team Providers Care Carpenter Packing Name Role Phone Urbano Denis DO Primary Care Provider Encounter Details Date Type Department Care Team (Late st Contact Info) Description 02/27/2021 Ancillary Procedure [place] [address] Urbano Denis DO [address] [place] [address] Social History Tobacco Use Types Packs/Day Years [...] AM EDT Hospital Encounter Non-Invasive [place] [phone] Arrived documented as of this encounter Goals Goal Patient Goal Type Associated Problems Recent Progress Patient-Stated? Author [facility] Medication Compliance and Understanding Patient Facing Action Plan On track(03/21/2 017 10:41 AM EDT) Selena Scott, [facility] Note: Patient Goal: Clear hepatitis C Timeframe to meet goal: within 12 weeks of therapy documented as of this encounter Procedures Procedure Name Priority Date/Time Associated Diagnosis Comments FILM LIBRARY STORAGE ONLY CT HEAD Routine 02/27/2021 12:00 AM EDT documented in this encounter Results * Film Library- Storage Only CT Head (02/27/2021 12:00 AM EDT) Narrative [facility] - 05/27/2021 9:08 AM EST This exam is auto-finalizing. It's purpose is for storage only. Urbano Denis DO IMG FILM LIBRARY ORD ERABLES [place], [place] documented in this encounter Visit Diagnoses Not on filedocumented in this encounter Care Teams Carpenter Packing Relationship Specialty Start Date End Date Urbano Denis DO [address] [place] [address] [address] [place] [address] PCP - General 09/03/12 03/17/22 Ruchi Valles RN Nurse Clinic Transplant Surgery 07/30/15 documented as of this encounter
--- OUTSIDE RECORDS SUMMARY | 2024-02-14 11:19 | XMS_ITS | Encounter Summary ---
Author Organization [facility] [place] [address] Care Team Providers Care Legal Referee Name Role Phone AdeelUrbano boland Primary Care Provider Encounter Details Date Type Department Care Team (Late st Contact Info) Description 03/13/2021 Orders Only Cardiology at [address] [address] Byron Brown MD [facility] [address] Atrial fibrillation with RVR - had flutter [...] as of this encounter Progress Notes * Herlinda Li RN - 03/13/2021 5:41 PM EDT ekg as per protocol documented in this encounter Plan of Treatment Upcoming Encounters Date Type Department Care Team (Late st Contact Info) Description 04/15/2024 10:00 AM EDT Hospital Encounter Non-[place] [address] Arrived documented as of this encounter Goals [...] fibrillation documented in this encounter Care Teams Legal Referee Relationship Specialty Start Date End Date Urbano Denis DO [facility] [address] [facility] [address] [place] [address] PCP - General 09/03/12 03/17/22 Ruchi Valles RN Nurse Clinic Transplant Surgery 07/30/15 documented as of this encounter
--- OUTSIDE RECORDS SUMMARY | 2024-02-14 11:19 | XMS_ITS | Encounter Summary ---
[place] [address] Care Team Providers Care Certified Medical Coder Name Role Phone Urbano Denis DO Primary Care Provider [phone] Reason for Referral * Diagnostic Test (Routine) - Closed Specialty Diagnoses / Procedures Referred By Contac t Referred To Contact Cardiology Diagnoses Cardiomyopathy, unspecified type Procedures Echocardiogram Transthoracic([facility]) Byron Brown MD [facility] [place] [address] [facility] [place] [address] Referral ID Status Reason Start Date Expiration Date V isits Requested Visits Authorized [id number] Closed Specialty Service Requested 09/14/2020 09/14/2021 1 1 Reason for Visit * Diagnostic Test (Routine) - Closed Specialty Diagnoses / Procedures Referred By Contac t Referred To Contact Cardiology Diagnoses Cardiomyopathy, unspecified type Procedures Echocardiogram Transthoracic([facility] or [facility]) Byron Brown MD [facility] [place] [address] [facility] [place] [address] Referral ID Status Reason Start Date Expiration Date V isits Requested Visits Authorized [id number] Closed Specialty Service Requested 09/14/2020 09/14/2021 1 1 Encounter Details Date Type Department Care Team (Late st Contact Info) Description 12/20/2020 12:23 PM EDT - 12/20/2020 11:59 PM EDT Hospital Encounter Non-Invasive Cardiology Lab [facility] [place] [address] Byron Brown MD [facility] [place] [address] Cardiomyopathy, unspecified type Discharge Disposition: Home Social [...] Sig Dispensed Refills Start Date End Date glipiZIDE XL (Glucotrol XL) 10 mg Tablet [...] TWO TABLETS EVERY EVENING 150 tablet 11 10/24/2020 01/20/2021 aspirin EC 81 mg Tablet, Delayed Release (E.C.) Take 81 mg by mouth daily. 03/14/2021 calciTRIoL (Rocaltrol) 0.5 mcg Capsule Take 1 capsule by mouth daily. 90 capsule 3 10/08/2020 10/28/2021 tacrolimus (Prograf) 1 mg Capsule TAKE TWO CAPSULES BY MOUTH EVERY MORNING AND ONE CAPSULE NIGHTLY 90 capsule 11 10/08/2020 10/04/2021 mycophenolate (Cellcept) 250 mg Capsule Take 1 capsule by mouth 2 times daily. 60 capsule 11 10/08/2020 10/04/2021 apixaban (Eliquis) 5 mg TabletIndications:Atria l fibrillation with RVR Take 1 tablet by mouth 2 times daily. 180 tablet 1 09/24/2020 03/14/2021 metoprolol succinate XL (Toprol-XL) 25 mg Tablet Sustained Release 24 hrIndications:Atrial fibrillation with RVR Take 1 tablet by mouth daily. 90 tablet 1 08/16/2020 03/19/2021 atorvastatin (Lipitor) 40 mg TabletIndications:Coron wali artery disease, angina presence unspecified, unspecified vessel or lesion type, unspecified whether viejas or transplanted heart Take 1 tablet by mouth every evening. 90 tablet 3 02/09/2020 01/28/2021 amLODIPine (Norvasc) 2.5 mg Tablet Take 10 mg by mouth daily. 03/19/2021 ascorbic acid, vitamin C, (VITAMIN C) 500 mg Tablet Take 1 tablet by mouth 3 times daily. 30 tablet 3 06/25/2016 12/27/2020 documented as of this encounter Plan of Treatment Upcoming Encounters Date Type Department Care Team (Late st Contact Info) Description 04/15/2024 10:00 AM EDT Hospital Encounter Non[place] [phone] Arrived documented as of this encounter Goals Goal Patient Goal Type Associated Problems Recent Progress Patient-Stated? Author DH Home Medication Compliance and Understanding Patient Facing Action Plan On track( 017 10:41 AM EDT) Selena Scott [facility] Note: Patient Goal: Clear hepatitis C Timeframe to meet goal: within 12 weeks of therapy documented as of this encounter Procedures Procedure Name Priority Date/Time Associated Diagnosis Comments ECHO COMPLETE Routine 12/20/2020 1:28 PM EDT Cardiomyopathy, unspecified type documented in this encounter Results * ECHO COMPLETE (12/20/2020 1:28 PM EDT) Anatomical Region Laterality Modality Other 12/20/2020 Narrative 12/20/2020 5:00 PM EDT Procedure: ?Transthoracic Echocardiogram Patient: ?MABLE Gomez ? (Age): 1950(70y) Med Rec#: ? [id number] ?Sex: ?M ? Site Loc: ? [facility] ?Ht / Wt: ??180(cm)/99.34(k Pt. Loc: ?Echo Lab ?BSA: ?2.19 Study Date: ?? 12/20/2020 ?Pt. Type: Outpatient Tape: ? Referring: Byron Brown ([id number]) Reading: Liseth Calero ([id number]) Patrol Guard: Anali Boudreaux Diagnosis: *Cardiomyopathy, unspecified (I42.9) BP: [...] Vmax ?0.79 ? m/sec ? MV deceleration [id number] ?msec ? MV A-wave Vmax ?0.34 ? [...] ? Mid-Inferior ?Normal ? Mid-Inferoseptal ?Normal ? [place]-Septal ? Normal ? [place]-Anterior ? Normal ? [place]-Lateral ?Normal ? [place]-Inferior ? Normal ? [place]-Tip ?Normal ? This report has been electronically signed by: Liseth Calero MD ? 12/20/2020 16:59:50 Images reviewed and interpretation verified [facility] Procedure Note Liseth Calero MD - 12/20/2020 Procedure: Transthoracic Echocardiogram Patient: MABLE DORANTES(Age): 1950(70y) Med Rec#: [id number] Sex: M Site Loc: [facility] Ht / Wt: 180(cm)/99.34(k Pt. Loc: Echo Lab BSA: 2.19 Study Date: 12/20/2020 Pt. Type: Outpatient Tape: Referring: Byron Brown ([id number]) Reading: Liseth Calero ([id number]) Patrol Guard: Anali Boudreaux Diagnosis: *Cardiomyopathy, unspecified (I42.9) BP: [...] MV E-wave Vmax 0.79 m/sec MV deceleration [id number] msec MV A-wave Vmax 0.34 m/sec MV [...] Normal Mid-Posterolateral Normal Mid-Inferior Normal Mid-Inferoseptal Normal [place]-Septal Normal [place]-Anterior Normal [place]-Lateral Normal [place]-Inferior Normal [place]-Tip Normal This report has been electronically signed by: Liseth Calero MD 12/20/2020 16:59:50 Images reviewed and interpretation verified [facility] Byron Brown MD ECHO ORDERABLES documented in this encounter Visit Diagnoses Diagnosis Cardiomyopathy, unspecified type documented in this encounter Care Teams Certified Medical Coder Relationship Specialty Start Date End Date Urbano Denis DO [address] [place] [address] [address] [place] [address] PCP - General 09/03/12 03/17/22 Ruchi Valles RN Nurse Clinic Transplant Surgery 07/30/15 documented as of this encounter
--- OUTSIDE RECORDS SUMMARY | 2024-02-14 11:19 | XMS_ITS | Encounter Summary ---
[place] [address] Care Team Providers Care After School Counselor Name Role Phone Urbano Denis DO Primary Care Provider [phone] Reason for Referral * Consultation (Routine) - Closed Specialty Diagnoses / Procedures Referred By Humberto flor Referred To Contact Gastroenterology Diagnoses H/O kidney transplant Diverticulitis of large intestine without perforation or abscess without bleeding Tal Eagle MD [facility] [place] [address] [facility] Endoscopy [address] [place] [address] Referral ID Status Reason Start Date Expiration Date V isits Requested Visits Authorized [id number] Closed Test Only 05/14/2021 05/14/2022 1 1 Encounter Details Date Type Department Care Team (Late st Contact Info) Description 05/14/2021 Telephone [place] [address] Marisela Metcalf RN Social History Tobacco Use [...] Telephone Encounter - Marisela Metcalf RN - 05/14/2021 7:19 PM EST Yash's Mara called to discuss multiple follow up questions regarding the pt's recent labs and follow up appointments: 1. Recent Creatinine 1.5 (baseline 1.3) I reviewed with Dr. Eagle this is only a slight increase and when taking into consideration the pt's multiple admissions recently he has no concerns with this level 2. PSA level 2.2 I confirmed this is normal and no concern regarding prostate at this time 3. Yash has been taking Flomax since transplant is this still needed? I confirmed that Yash should continue to take this medication; this medication helps Yash urinate and can help prevent problems withdripping or difficulty starting a stream which he had problems with historically; I explained that once a man has an enlarged prostate it does not reduce in size. 4. Follow up with GI after recent admission at [facility] when he was diagnosed with diverticulitis. Dr. Pettit recommended PPI daily for GERD and follow up colonoscopy. Mara does not believe Yash needs daily medication for GERD since he does not have frequent symptoms and would prefer he has his colonoscopy at [facility]. I let Mara know that if Yash is having GERD symptoms more than twice weekly he would benefit from a daily medication. I also confirmed we could set him up for his colonoscopy here at [facility] if that is what they prefer. Mara also wanted to make sure I was aware that Yash has restarted on aspirin daily. He has not re-started any other blood thinners. He has a follow up appt with Neurology next month to determine if he can safely restart plavix (if needed). Yash also has a follow up with cardiology at which time it could also be addressed. All Mara's questions and concerns were addressed. She feels much more comfortable knowing that we are up to date on Yash's current health situation. She will continue to keep us up to date on any changes in Yash's condition. documented in this encounter Plan of Treatment Upcoming Encounters Date Type Department Care Team (Late st Contact Info) Description 04/15/2024 10:00 AM EDT Hospital Encounter [place] [phone] Arrived Scheduled Referrals Name Type Priority Associated Diagnoses Orde r Schedule REFERRAL TO COLONOSCOPY PROCEDURE Outpatient Referral Routine H/O kidney transplant Diverticulitis of large intestine without perforation or abscess without bleeding Ordered: 05/14/2021 documented as of this encounter Goals Goal Patient Goal Type Associated Problems Recent Progress Patient-Stated? Author [facility] Home Medication Compliance and Understanding Patient Facing Action Plan On track( 017 10:41 AM EDT) No Selena Cisneros, [facility] Note: Patient Goal: Clear hepatitis C Timeframe to meet goal: within 12 weeks of therapy documented as of this encounter Visit Diagnoses Diagnosis H/O kidney transplant Kidney replaced by transplant Diverticulitis of large intestine without perforation or abscess without bleeding Diverticulitis of colon (without mention of hemorrhage) documented in this encounter Care Teams After School Counselor Relationship Specialty Start Date End Date Urbano Denis DO [address] [place] [address] PCP - General 09/03/12 03/17/22 Ruchi Valles RN Nurse Clinic Transplant Surgery 07/30/15 documented as of this encounter
--- OUTSIDE RECORDS SUMMARY | 2024-02-14 11:19 | XMS_ITS | Encounter Summary ---
[place] [address] Care Team Providers Care Automatic Cigar Wrapper Tender Name Role Phone Urbano Denis DO Primary Care Provider Encounter Details Date Type Department Care Team (Latest Contact Info) Description 03/14/2021 2:00 PM EDT Laboratory Appointment Lab [address] [place] [phone] H/O kidney transplant Social History Tobacco Use [...] AM EDT Hospital Encounter Non-Invasive [place] [phone] Arrived documented as of this encounter Goals Goal Patient Goal Type Associated Problems Recent Progress Patient-Stated? Author [facility] Medication Compliance and Understanding Patient Facing Action Plan On track( 017 10:41 AM EDT) No Selena Cisneros [facility] Note: Patient Goal: Clear hepatitis C Timeframe to meet goal: within 12 weeks of therapy documented as of this encounter Procedures Procedure Name Priority Date/Time Associated Diagnosis Comments URINALYSIS MICROSCOPIC EXAM Routine 03/14/2021 2:57 PM EDT HC CREATININE - NON BLOOD Routine 03/14/2021 2:57 PM EDT H/O kidney transplant URINALYSIS WITH REFLEX CULTURE Routine 03/14/2021 2:57 PM EDT H/O kidney transplant HC VENIPUNCTURE Routine 03/14/2021 2:50 PM EDT H/O kidney transplant HEMOGRAM Routine 03/14/2021 2:50 PM EDT H/O kidney transplant DIFFERENTIAL, AUTOMATED Routine 03/14/2021 2:50 PM EDT H/O kidney transplant HC [id number] (TACROLIMUS) Routine 2:50 PM EDT H/O kidney transplant HC RETIC,AUTO INCLUDES RETHE & IRF Routine 03/14/2021 2:50 PM EDT H/O kidney transplant HC CBC,PLT & AUTO DIFF Routine 2:50 PM EDT H/O kidney transplant HC URIC ACID, SERUM Routine 03/14/2021 2 :50 PM EDT H/O kidney transplant HC PHOSPHORUS, SERUM Routine 03/14/2021 2:50 PM EDT H/O kidney transplant HC MAGNESIUM, SERUM Routine 03/14/2021 2 :50 PM EDT H/O kidney transplant HC CHOLESTEROL Routine 03/14/2021 2:50 PM EDT H/O kidney transplant COMPREHENSIVE METABOLIC PANEL Routine 03/14/2021 2:50 PM EDT H/O kidney transplant documented in this encounter Results * (ABNORMAL) Urinalysis Microscopic Exam (03/14/2021 2:57 PM EDT) RBC, Urine 2 0 - 3 /HPF [facility] WBC, Urine 1 0 - 3 /HPF [facility] Granular Casts, Urine <1(H) <=0 /LPF [facility] Calcium Oxalate Crystal, Urine Moderate(A ) None /HPF [facility] Clean Catch Urine 03/14/2021 2:57 PM EDT 03/14/2021 3:33 PM EDT Narrative Resulting Agency Comment Spec In Lab Tal Eagle MD URINE ORDERABLES [facility] [place] [address] * (ABNORMAL) Urinalysis with reflex Culture (03/14/2021 2:57 PM EDT) Glucose, Urine Dipstick Negative Negative mg/dL [facility] Protein, Urine Dipstick 100(A) Negative mg/dL [facility] Bilirubin, Urine Dipstick Negative Negative mg/dL [facility] Comment: Clinical correlation required for positive Urine Bilirubin results as false positive may occur with some drugs and drug related products. If a false positive is suspected a serum total bilirubin should be considered if clinically indicated. Urobilinogen, Urine Dipstick Normal Normal mg/dL [facility] pH, Urn (dipstick) 5.5 5.0 - 8.0 [facility] Blood, Urine Dipstick Negative Negative mg/dL [facility] Ketone, Urine Dipstick Trace(A) Negative mg/dL [facility] Nitrite, Urine Dipstick Negative Negative [facility] Leukocytes, Urine Dipstick Negative Negative [facility] Appearance, Urine Dipstick Clear Clear [facility] Specific [place] Urine Automated 1.022 1.005 - 1.030 [facility] Color, Urine Dipstick Dark Yellow Yellow [facility] Reflex to Culture No [facility] Clean Catch Urine 03/14/2021 2:57 PM EDT 03/14/2021 3:33 PM EDT Narrative Resulting Agency Comment Spec In Lab Tal Eagle MD URINE ORDERABLES Performing Organization Address City/[facility]/ZIP Co de Phone Number [facility] [place] [address] * (ABNORMAL) Protein/Creatinine Ratio, urine (03/14/2021 2:57 PM EDT) Creatinine, Urine 156 mg/dL [facility] Protein, Urine 73(H) 0 - 12 mg/dL [facility] Protein / Creatinine Ratio, Urine 0.5 ratio [facility] Urine 03/14/2021 2:57 PM EDT 03/14/2021 3:33 PM EDT Narrative Resulting Agency Comment Spec In Lab Tal Eagle MD URINE ORDERABLES Performing Organization Address City/[facility]/ZIP Co de Phone Number [facility] [place] [address] * (ABNORMAL) Differential, Automated (03/14/2021 2:50 PM EDT) Neutrophil % 68.0 % [facility] Neutrophil Absolute 6.24(H) 1.70 - 6.10 x10(3)/mc L [facility] Lymph % 17.6 % [facility] Lymphocytes Abs 1.6 0.9 - 3.2 x10(3)/mc L [facility] Monocyte % 9.4 % [facility] Monocyte Abs 0.9 0.3 - 0.9 x10(3)/mc L [facility] Eos % 3.6 % [facility] Eosinophils Abs 0.3 0.0 - 0.4 x10(3)/mc L [facility] Basophil % 0.5 % [facility] Baso Absolute 0.0 0.0 - 0.1 x10(3)/[facility] Immature Gran % 0.90 % [facility] Comment: Immature granulocytes(IG's)percentage and absolute count will include metamyelocytes, myelocytes, and promyelocytes. Blood smears from CBCs yielding IG's will be scanned manually for concordance. If this scan disagrees with the automated IG or if promyelocytes are noted, a manual differential will be performed. Immature Gran Absolute 0.08(H) 0.00 - 0.04 x10(3)/[facility] Blood 03/14/2021 2:50 PM EDT 03/14/2021 3:19 PM EDT Narrative Resulting Agency Comment Spec In Lab Tal Eagle MD HEMATOLOGY ORDERA BLES Performing Organization Address City/State/[facility] Co de Phone Number [facility] [place] [address] * Hemogram (03/14/2021 2:50 PM EDT) White Blood Cell 9.2 4.0 - 9.5 x10(3)/[facility] Red Blood Cell 4.94 4.58 - 5.54 x10(6)/[facility] Hemoglobin 15.2 13.7 - 16.5 gm/dL [facility] Hematocrit 43.7 40.5 - 48.5 % [facility] Mean Cell Volume 88.5 82.9 - 93.1 fL [facility] Mean Cell Hemoglobin 30.8 27.5 - 32.1 pg [facility] Mean Cell Hemoglobin Concentration 34.8 32.0 - 35.7 gm/dL [facility] Platelet 248 145 - 357 x10(3)/[facility] RDW Standard Deviation 41.2 36.0 - 45.0 fL [facility] RDW coefficient of variation 12.9 11.4 - 13.8 % [facility] Mean Platelet Volume 9.6 7.6 - 12.9 fL [facility] NRBC% auto 0.0 % [facility] NRBC Absolute 0.000 0.000 - 0.000 x10(3)/[facility] Blood 03/14/2021 2:50 PM EDT 03/14/2021 3:19 PM EDT Narrative Resulting Agency Comment Spec In Lab Tal Eagle MD HEMATOLOGY ORDERA BLES Performing Organization Address City/[facility]/ZIP Co de Phone Number [facility] [place] [address] * Reticulocyte Count (03/14/2021 2:50 PM EDT) Pathologist [facility] Reticulocyte % 1.6 0.7 - 2.6 % [facility] Retic Abs # 0.080 0.030 - 0.120 x10(6)/[facility] Immature Retic% 8.2 0.0 - 15.6 % [facility] Reticulated Hgb 34.7 31.3 - 40.2 pg [facility] Blood 03/14/2021 2:50 PM EDT 03/14/2021 3:19 PM EDT Narrative Resulting Agency Comment Spec In Lab Tal Eagle MD HEMATOLOGY ORDERA BLES Performing Organization Address City/[facility]/ZIP Co de Phone Number [facility] [place] [address] * (ABNORMAL) Comprehensive metabolic panel (non-fasting) (03/14/2021 2:50 PM EDT) Glucose 123 65 - 199 mg/dL [facility] Comment:Diabetes: >=200 mg/d L plus symptoms Blood Urea Nitrogen 22(H) 10 - 20 mg/dL [facility] Creatinine 1.34 0.80 - 1.50 mg/dL [facility] Sodium 134(L) 135 - 145 mmol/L [facility] Potassium 3.6 3.5 - 5.0 mmol/L [facility] Comment: Please note: ??Patients with WBC >100,000 may have falsely elevated Potassium levels. ??For accurate Potassium quantification in these patients send serum separator tube (gold top) for subsequent determinations. ??Contact the Clinical Chemistry Laboratory if there are any questions. Chloride 98 98 - 107 mmol/L [facility] Carbon Dioxide 23 22 - 31 mmol/L [facility] Anion Gap 13 5 - 15 mmol/L [facility] Calcium 9.8 8.5 - 10.5 mg/dL [facility] Protein, Total 6.8 6.1 - 8.0 gm/dL [facility] Albumin 3.6 3.2 - 5.2 gm/dL [facility] Aspartate Aminotransferase 15 0 - 39 unit/L [facility] Alanine Aminotransferase 18 0 - 55 unit/L [facility] Alkaline Phosphatase 72 40 - 130 unit/L [facility] Bilirubin, Total 2.3(H) 0.2 - 1.3 mg/dL [facility] Est Glomerular Filtration Rate 53(L) >=60 mL/min/1. 73 m?? [facility] Comment: This patient? s [...] and symptoms in addition to eGFR. Blood 03/14/2021 2:50 PM EDT 03/14/2021 3:19 PM EDT Narrative Resulting Agency Comment Spec In Lab Tal Eagle MD CHEMISTRY ORDERAB LES [facility] [place] [address] * Cholesterol, total (03/14/2021 2:50 PM EDT) Cholesterol, Total 95 mg/dL [facility] Comment: Lower Risk: <200 mg/dL Average Risk: 200-239 mg/dL Higher Risk: >ll=255 mg/dL Lipid Interpretation See Note [facility] Comment: Lipid management should be guided by a patient? s ASCVD risk, goals and preferences. ACC/AHA Guidelines recommend high intensity statin if clinical ASCVD or LDL greater than or equal to 190 mg/dL. http://[employer].com/UQY-YHE-Mbtftzvcx Adults aged 40-75 with LDL 70-189 mg/dL should have their 10 year ASCVD risk estimated with the ACC/AHA ASCVD risk job estimator http://tools.acc.org/NNRXY-Hsxe-Bvawbztla/ Statin should be discussed if risk greater [...] critical component of ASCVD risk reduction. Blood 03/14/2021 2:50 PM EDT 03/14/2021 3:19 PM EDT Narrative Resulting Agency Comment Spec In Lab Tal Eagle MD CHEMISTRY ORDERAB LES Performing Organization Address City/[facility]/ZIP Co de Phone Number [facility] [place] [address] * Magnesium (03/14/2021 2:50 PM EDT) Magnesium 0.76 0.69 - 1.07 mmol/L [facility] Blood 03/14/2021 2:50 PM EDT 03/14/2021 3:19 PM EDT Narrative Resulting Agency Comment Spec In Lab Tal Eagle MD CHEMISTRY ORDERAB LES Performing Organization Address City/[facility]/ZIP Co de Phone Number [facility] [place] [address] * Phosphorus (03/14/2021 2:50 PM EDT) Phosphorus 3.1 2.5 - 4.5 mg/dL [facility] Blood 03/14/2021 2:50 PM EDT 03/14/2021 3:19 PM EDT Narrative Resulting Agency Comment Spec In Lab Tal Eagle MD CHEMISTRY ORDERAB LES Performing Organization Address [facility]/ZIP Co de Phone Number [facility] [place] [address] * Uric acid (03/14/2021 2:50 PM EDT) Uric Acid 6.1 3.5 - 8.5 mg/dL [facility] Blood 03/14/2021 2:50 PM EDT 03/14/2021 3:19 PM EDT Narrative Resulting Agency Comment Spec In Lab Tal Eagle MD CHEMISTRY ORDERAB LES Performing Organization Address City/[facility]/ZIP Co de Phone Number [facility] [place] [address] * Tacrolimus level (03/14/2021 2:50 PM EDT) Tacrolimus 5.5 ng/mL [facility] Comment: Trough therapeutic range is 3-15 ng/mL, depending upon transplant type, time since transplantation, use of other 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 drugs, comorbidities, and test method used. Tacrolimus concentration determined using the [employer] Tacrolimus electrochemiluminescence competitive immunoassay. Results from different samples types and methods are not interchangeable. Blood 03/14/2021 2:50 PM EDT 03/14/2021 3:19 PM EDT Narrative Resulting Agency Comment Spec In Lab Tal Eagle MD CHEMISTRY ORDERAB LES Performing Organization Address City/[facility]/ZIP Co de Phone Number [facility] [place] [address] * BKV Quant Blood (03/14/2021 2:50 PM EDT) Pathologist [facility] BKV Blood Result Not Detected [facility] BKV Blood Interp BK Virus Plasma Result Interpretation Result: BK Virus not detected Specimen type: plasma Assay Range: 2.80-7.80 log copies/mL (6.28x10^2 - 6.28x10^7 copies/mL) Methods: Quantitative real-time polymerase chain reaction (PCR) of viral DNA isolated from plasma was performed using [employer] BKV analyte-specific reagents and the [employer] System that automates both nucleic acid isolation [...] [facility] ([facility]) Laboratory at [facility]. It has not been cleared or approved by the FDA. The laboratory is regulated under CLIA as qualified to perform high-complexity testing. This test is used for clinical purposes. It should not be regarded as investigational or for research. [facility] Comment: [VERIFIED DATE]03.28.21 Verified By:Bev Hughes (Electronic Signature) Blood 03/14/2021 2:50 PM EDT 03/15/2021 6:19 AM EDT Narrative Resulting Agency Comment Spec In Lab Tal Eagle MD MOLECULAR ORDERAB LES Performing Organization Address City/[facility]/ZIP Co de Phone Number [facility] [place] [address] documented in this encounter Visit Diagnoses Diagnosis H/O kidney transplant Kidney replaced by transplant documented in this encounter Care Teams Automatic Cigar Wrapper Tender Relationship Specialty Start Date End Date Urbano Denis DO [address] [place] [address] [address] [place] [address] PCP - General 09/03/12 03/17/22 Hai STANLEY,Ruchi Nurse Clinic Transplant Surgery 07/30/15 documented as of this encounter
--- OUTSIDE RECORDS SUMMARY | 2024-02-14 11:19 | XMS_ITS | Encounter Summary ---
Author Organization [facility] [place] [address] Care Team Providers Care Helper Teacher Name Role Phone Adeel Urbano KIRBY Primary Care Provider Encounter Details Date Type Department Care Team (Late st Contact Info) Description 03/14/2021 Telephone [place] [phone] Elsi Hernandez Social History Tobacco Use Types Packs/Day Years [...] AM EDT Hospital Encounter Non-Invasive [place] [phone] Arrived documented as of this encounter Goals Goal Patient Goal Type Associated Problems Recent Progress Patient-Stated? Author [facility] Medication Compliance and Understanding Patient Facing Action Plan On track( 017 10:41 AM EDT) No Selena Cisneros, [facility] Note: Patient Goal: Clear hepatitis C Timeframe to meet goal: within 12 weeks of therapy documented as of this encounter Visit Diagnoses Not on filedocumented in this encounter Care Teams Helper Teacher Relationship Specialty Start Date End Date Urbano Denis DO [address] [place] [address] [address] [facility] [address] [place] [address] PCP - General 09/03/12 03/17/22 Ruchi Valles RN Nurse Clinic Transplant Surgery 07/30/15 documented as of this encounter
--- OUTSIDE RECORDS SUMMARY | 2024-02-14 11:19 | XMS_ITS | Encounter Summary ---
Author Organization [facility] [place] [address] Care Team Providers Care Combination Machine Tender Name Role Phone Adeel, Urbano KIRBY Primary Care Provider Encounter Details Date Type Department Care Team (Late st Contact Info) Description 04/04/2021 7:35 PM EDT Ancillary Procedure [place] [address] Byron Brown MD [facility] [place] [address] Social History Tobacco Use Types Packs/Day Years [...] AM EDT Hospital Encounter Non-Invasive [place] [phone] Arrived documented as of this encounter Goals Goal Patient Goal Type Associated Problems Recent Progress Patient-Stated? Author [facility] Medication Compliance and Understanding Patient Facing Action Plan On track( 017 10:41 AM EDT) Selena Scott, [facility] Note: Patient Goal: Clear hepatitis C Timeframe to meet goal: within 12 weeks of therapy documented as of this encounter Procedures Procedure Name Priority Date/Time Associated Diagnosis Comments FILM LIBRARY STORAGE ONLY CT ABDOMEN AND PELVIS Routine 04/04/2021 7:32 PM EDT documented in this encounter Results * Film Library- Storage Only CT Abdomen & Pelvis (04/04/2021 7:32 PM EDT) Narrative RAD - 04/04/2021 7:32 PM EDT This exam is auto-finalizing. It's purpose is for storage only. Byron Brown MD IMG FILM LIBRARY OR DERABLES [place], [place] documented in this encounter Visit Diagnoses Not on filedocumented in this encounter Care Teams Combination Machine Tender Relationship Specialty Start Date End Date Urbano Denis DO [address] [place] [address] PCP - General 09/03/12 03/17/22 Ruchi Valles RN Nurse Clinic Transplant Surgery 07/30/15 documented as of this encounter
--- OUTSIDE RECORDS SUMMARY | 2024-02-14 11:19 | XMS_ITS | Encounter Summary ---
[place] [address] Care Team Providers Care Snuff Packing Machine Operator Name Role Phone AdeelUrbano boland Primary Care Provider Encounter Details Date Type Department Care Team (Late st Contact Info) Description 02/26/2021 Telephone Cardiology at [address] [address] Anel Proctor RN Social History Tobacco Use Types Packs/Day [...] encounter Miscellaneous Notes * Telephone Encounter - Anel Proctor RN - 02/26/2021 2:13 PM EDT Spoke with Dr. Brown who was given the update below from the patient spouse. He was sorry to hear of the patient's stroke and is available if there are further concerns from patient, family or providers. Anel Proctor RN, BSN Ambulatory Cardiology Department * Telephone Encounter - Anel Proctor RN - 02/26/2021 12:01 PM EDT Received call from patient spouse Mara who wants to provide the following update for Dr. Brown- Yash is currently at [facility] for stroke and his apixaban and ASA have been stopped. [facility] has been in touch with Neurosurgery at [facility] and patient is scheduled for repeat head CT this afternoon. Unable to transfer patient to [facility] because of bed availability- so patient will remain at [facility] for now. Mrs Bolden has also contacted the Transplant team to let them know about patient current situation. Spouse informed that I will notify Dr. Brown of patient stroke and admission. She understands she can call at any time if she has further concerns. She has no other specific questions at this time. Anel Proctor RN, BSN Ambulatory Cardiology Department . documented in this encounter Plan of Treatment Upcoming Encounters Date Type Department Care Team (Late st Contact Info) Description 04/15/2024 10:00 AM EDT Hospital Encounter Non-Invasive [place] [address] Arrived documented as of this encounter Goals Goal Patient Goal Type Associated Problems Recent Progress Patient-Stated? Author [facility] Medication Compliance and Understanding Patient Facing Action Plan On track( 017 10:41 AM EDT) No Selena Cisneros, [facility] Note: Patient Goal: Clear hepatitis C Timeframe to meet goal: within 12 weeks of therapy documented as of this encounter Visit Diagnoses Not on filedocumented in this encounter Care Teams Snuff Packing Machine Operator Relationship Specialty Start Date End Date Urbano Denis DO [address] [place] [address] PCP - General 09/03/12 03/17/22 Ruchi Valles RN Nurse Clinic Transplant Surgery 07/30/15 documented as of this encounter
--- OUTSIDE RECORDS SUMMARY | 2024-02-14 11:19 | XMS_ITS | Encounter Summary ---
Author Organization [facility] Address [facility] [place] [place] [address] Care Team Providers Care Hr Recruiter Name Role Phone Urbano Denis DO Primary Care Provider Encounter Details Date Type Department Care Team (Late st Contact Info) Description 08/24/2020 Telephone [place] [address] [facility] [place] [address] Social History Tobacco Use Types Packs/Day Years [...] encounter Miscellaneous Notes * Telephone Encounter - Jolene Reed RD - 08/24/2020 11:48 AM EST Followed up with Yash and his , Mara today per post-transplant nurse coordinator's (Marisela Metcalf RN) request. Plan to decrease KPhos supplement regimen in half, warranting increased effort toinclude high phosphorus foods at meals/snacks in efforts to sustain normal serum phosphorus level. Reviewed high phosphorus foods with Mara in detail, focusing and recommending Yash aim to include high phosphorus foods included in general healthful diet such as lean animal protein foods, low-fat dairy, nuts, seeds, beans, lentils, peas. Also suggested pt aim to choose whole grain CHO as much as possible given higher phosphorus content. Mara very appreciative of suggestions made, deeming this v valentina realistic for pt. Mara agreeable to receive phosphorus foods list via email. [employer] emailed handouts complete with contact info to Yash's email for both Mara and Yash to review. Thank you, Jolene Reed RD documented in this encounter Plan of Treatment Upcoming Encounters Date Type Department Care Team (Late st Contact Info) Description 04/15/2024 10:00 AM EDT Hospital Encounter Non-Invasive [place] [address] Arrived documented as of this encounter Goals [...] on filedocumented in this encounter Care Teams Hr Recruiter Relationship Specialty Start Date End Date Urbano Denis DO [address] [place] [address] PCP - General 09/03/12 03/17/22 Ruchi Valles RN Nurse Clinic Transplant Surgery 07/30/15 documented as of this encounter
--- OUTSIDE RECORDS SUMMARY | 2024-02-14 11:19 | XMS_ITS | Encounter Summary ---
[place] [address] Care Team Providers Care Kitchen Runner Name Role Phone Adeel Urbano KIRBY Primary Care Provider Encounter Details Date Type Department Care Team (Late st Contact Info) Description 09/18/2020 Notes Only [place] [address] Anabella Bright Social History Tobacco Use Types [...] encounter Progress Notes * Anabella Bright - 09/18/2020 1:10 PM EDT Transplant Museum Registrar Note: Patient's initiated appeal for coverage of K-Phos 500. Received denial letter today, filed under Media tab. documented in this encounter Plan of Treatment Upcoming Encounters Date Type Department Care Team (Late st Contact Info) Description 04/15/2024 10:00 AM EDT Hospital Encounter Non-Invasive [place] [address] Arrived documented as of this encounter Goals [...] on filedocumented in this encounter Care Teams Kitchen Runner Relationship Specialty Start Date End Date Urbano Denis DO [address] [place] [address] PCP - General 09/03/12 03/17/22 Ruchi Valles RN Nurse Clinic Transplant Surgery 07/30/15 documented as of this encounter
--- OUTSIDE RECORDS SUMMARY | 2024-02-14 11:19 | XMS_ITS | Encounter Summary ---
Author [facility] [place] [address] Care Team Providers Care Thermostat Maker Name Role Phone Adeel Urbano KIRBY Primary Care Provider [phone] Reason for Visit * Reason Comments Medication Refill Encounter Details Date Type Department Care Team (Late st Contact Info) Description 01/24/2021 Refill Cardiology at [address] [address] Byron Brown MD [facility] [place] [address] Medication Refill Social History Tobacco Use Types [...] AM EDT Hospital Encounter Non-[place] [address] Arrived documented as of this encounter Goals Goal Patient Goal Type Associated Problems Recent Progress Patient-Stated? Author [facility] Medication Compliance and Understanding Patient Facing Action Plan On track( 017 10:41 AM EDT) Selena Scott, [facility] Note: Patient Goal: Clear hepatitis C Timeframe to meet goal: within 12 weeks of therapy documented as of this encounter Visit Diagnoses Diagnosis Coronary artery disease Coronary atherosclerosis of unspecified type of vessel, skull valley or graft documented in this encounter Care Teams Thermostat Maker Relationship Specialty Start Date End Date Urbano Denis DO [address] [place] [address] [address] [facility] [address] [place] [address] PCP - General 09/03/12 03/17/22 Ruchi Valles RN Nurse Clinic Transplant Surgery 07/30/15 documented as of this encounter
--- OUTSIDE RECORDS SUMMARY | 2024-02-14 11:19 | XMS_ITS | Encounter Summary ---
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 Explainedthat K-Phos is excluded from coverage by ALL Medicare D plans. Explained that I submitted the priorauth request as a courtesy, and it was denied as expected. She states that they cannot afford the cost of Kphos. I offered to get a goodRX coupon to the Pharmacy, or research pharmacies where it may be cheaper. She declined. I offered to have her discuss this further with Nurse Coordinator, Amy, to see if there are other options, including dietary changes that may help. She accepted this offer. Communication to Amy to follow up with patient. Addendum: Received call from Olga at patient's part D plan, states that Kphos is covered under part D. I asked how she came to this determination - she reports that the patient's told her it was immunosuppression. I advised that it is NOT immunosuppression. She will call patient's back to update her that Kphos will not be covered under Medicare B, nor D. documented in this encounter Plan of Treatment Upcoming Encounters Date Type Department Care Team (Late st Contact Info) Description 04/15/2024 10:00 AM EDT Hospital Encounter Non-[place]vasive [place] [address] Arrived documented as of this encounter Goals Goal Patient Goal Type Associated Problems Recent Progress Patient-Stated? Author [facility] Medication Compliance and Understanding Patient Facing Action Plan On track( 017 10:41 AM EDT) Selena Scott, [facility] Note: Patient Goal: Clear hepatitis C Timeframe to meet goal: within 12 weeks of therapy documented as of this encounter Visit Diagnoses Not on filedocumented in this encounter Care Teams Wet Wheeler Relationship Specialty Start Date End Date Urbano Denis DO [address] [place] [address] PCP - General 09/03/12 03/17/22 Ruchi Valles RN Nurse Clinic Transplant Surgery 07/30/15 documented as of this encounter
--- OUTSIDE RECORDS SUMMARY | 2024-02-14 11:20 | XMS_ITS | Encounter Summary ---
Author Organization [place] [place] [address] Care Team Providers Care Welding Machine Operator Plasma Arc Name Role Phone Adeel Urbano KIRBY Primary Care Provider [phone] Encounter Details Date Type Department Care Team (Late st Contact Info) Description 08/06/2020 Abstract [place] [phone] Tal Eagle MD [facility] [place] [address] Social History Tobacco Use Types Packs/Day Years [...] AM EDT Hospital Encounter Non[place] [address] Arrived documented as of this encounter Goals Goal Patient Goal Type Associated Problems Recent Progress Patient-Stated? Author [facility] Medication Compliance and Understanding Patient Facing Action Plan On track( 017 10:41 AM EDT) No Selena Cisneros, [facility] Note: Patient Goal: Clear hepatitis C Timeframe to meet goal: within 12 weeks of therapy documented as of this encounter Visit Diagnoses Not on filedocumented in this encounter Care Teams Welding Machine Operator Plasma Arc Relationship Specialty Start Date End Date Urbano Denis DO [address] [place] [address] PCP - General 09/03/12 03/17/22 Ruchi Valles RN Nurse Clinic Transplant Surgery 07/30/15 documented as of this encounter
--- OUTSIDE RECORDS SUMMARY | 2024-02-14 11:20 | XMS_ITS | Encounter Summary ---
Author Organization [facility] [place] [address] Care Team Providers Care Testing Lead Name Role Phone Urbano Denis DO Primary Care Provider Encounter Details Date Type Department Care Team (Late st Contact Info) Description 03/28/2020 [place] [phone] Sonia Alcantar Social History Tobacco Use Types Packs/Day Years Used Date Smoking Tobacco: Some Days Cigars Last attempted to quit: 01/02/2015 Smokeless Tobacco: Never Comments:cigars, one weekly Alcohol Use Standard Drinks/Week Comments No 0 (1 standard drink = 0.6 oz pur e alcohol) Sex and Gender Information Value Date Recorded Sex Assigned at Not on file Gender Identity Not on file Sexual Orientation Not on file documented as of this encounter Miscellaneous Notes * Telephone Encounter - Nancy Iqbal - 04/04/2020 8:31 AM EDT Scheduled XR * Telephone Encounter - Sonia Alcantar - 03/28/2020 12:38 PM EDT Scheduled PAT & anesthesia consult same day 04/11 Called pt to confirm = confirmed * Telephone Encounter - Sonia Alcantar - 03/28/2020 11:24 AM EDT gave permission for 04/11 opening AB changed appt Pt scheduled and appt card sent * Telephone Encounter - Sonia Alcantar - 03/28/2020 9:40 AM EDT Scheduled for next available TCR = 05/07/20 Notes by TCR on 03/27 Sent note to for expediting ~~~~~~~~~~~~~~~~~~~~~~~~~~~~~~~~~~~~~~~~~~~~~~~~~~~~~~~~~~ Franko Torres PA Sent: tiny March 27, 2020 ??1:22 PM To: Joseph Ang MD; P [facility] Neurosurgery Associate Professor Of Psychology; Viviana Gardner ?? Follow-up and Dispositions Check-out Note: 1) clinic appt w/ TCR to discuss surgery 2) needs same day H&P and PAT with Anesthesia consult 3) same day lumbar XR (ordered) documented in this encounter Plan of Treatment Upcoming Encounters Date Type Department Care Team (Late st Contact Info) Description 04/15/2024 10:00 AM EDT Hospital Encounter Non-Invasive [place] [address] Arrived documented as of this encounter Goals Goal Patient Goal Type Associated Problems Recent Progress Patient-Stated? Author [facility] Medication Compliance and Understanding Patient Facing Action Plan On track( 017 10:41 AM EDT) No Selena Cisneros, [facility] Note: Patient Goal: Clear hepatitis C Timeframe to meet goal: within 12 weeks of therapy documented as of this encounter Visit Diagnoses Not on filedocumented in this encounter Care Teams Testing Lead Relationship Specialty Start Date End Date Urbano Denis DO [address] [place] [address] [address] [place] [address] PCP - General 09/03/12 03/17/22 Hai STANLEY,Ruchi Nurse Clinic Transplant Surgery 07/30/15 documented as of this encounter
--- OUTSIDE RECORDS SUMMARY | 2024-02-14 11:20 | XMS_ITS | Encounter Summary ---
[place] [address] Care Team Providers Care Channel Specialist Name Role Phone Urbano Denis DO Primary Care Provider [phone] Encounter Details Date Type Department Care Team (Late st Contact Info) Description 06/21/2020 1:20 PM EST Ancillary Procedure [place] [address] Urbano Denis DO [address] [place] [address] Social History Tobacco Use Types Packs/Day Years [...] AM EDT Hospital Encounter Non[place] [address] Arrived documented as of this encounter Goals Goal Patient Goal Type Associated Problems Recent Progress Patient-Stated? Author [facility] Medication Compliance and Understanding Patient Facing Action Plan On track( 017 10:41 AM EDT) Selena Scott, [facility] Note: Patient Goal: Clear hepatitis C Timeframe to meet goal: within 12 weeks of therapy documented as of this encounter Procedures Procedure Name Priority Date/Time Associated Diagnosis Comments FILM LIBRARY STORAGE ONLY DX SPINE Routine 06/21/2020 1:16 PM EST documented in this encounter Results * Film Library- Storage Only DX Spine (06/21/2020 1:16 PM EST) Narrative [facility] - 06/21/2020 1:16 PM EST This exam is auto-finalizing. It's purpose is for storage only. Urbano Denis DO IMG FILM LIBRARY ORD ERABLES [place], [place] documented in this encounter Visit Diagnoses Not on filedocumented in this encounter Care Teams Channel Specialist Relationship Specialty Start Date End Date Urbano Denis DO [address] [place] [address] [address] [place] [address] PCP - General 09/03/12 03/17/22 Ruchi Valles RN Nurse Clinic Transplant Surgery 07/30/15 documented as of this encounter
--- OUTSIDE RECORDS SUMMARY | 2024-02-14 11:20 | XMS_ITS | Encounter Summary ---
Author Organization [facility] [place] [address] Care Team Providers Care Interactive Graphic Designer Name Role Phone AdeelUrbano boland Primary Care Provider [phone] Encounter Details Date Type Department Care Team (Late st Contact Info) Description 03/27/2020 Notes [place] [address] Joseph Agn MD [facility] [address] Social History Tobacco Use Types Packs/Day Years [...] as of this encounter Progress Notes * Joseph Ang MD - 03/27/2020 2:29 PM EDT Reviewed imaging and exam with Mark Torres and note patient scheduling for surgery at [facility] by Dr. Leal due to progressive neurological deficit but delayed due to anesthesia concerns. In order to expedite requesting preop workup to be arranged and will need to meet with patient prior. Plans for left L45 decompression as noted as plan pending review of flex ex films and patient meeting. documented in this encounter Plan of Treatment Upcoming Encounters Date Type Department Care Team (Late st Contact Info) Description 04/15/2024 10:00 AM EDT Hospital Encounter Non-[place] [address] Arrived documented as of this encounter Goals Goal Patient Goal Type Associated Problems Recent Progress Patient-Stated? Author [facility] Medication Compliance and Understanding Patient Facing Action Plan On track( 017 10:41 AM EDT) No Selena Cisneros, [facility] Note: Patient Goal: Clear hepatitis C Timeframe to meet goal: within 12 weeks of therapy documented as of this encounter Visit Diagnoses Not on filedocumented in this encounter Care Teams Interactive Graphic Designer Relationship Specialty Start Date End Date Urbano Denis DO [address] [place] [address] PCP - General 09/03/12 03/17/22 Ruchi Valles RN Nurse Clinic Transplant Surgery 07/30/15 documented as of this encounter
--- OUTSIDE RECORDS SUMMARY | 2024-02-14 11:20 | XMS_ITS | Encounter Summary ---
Author Organization [place] [address] Care Team Providers Care Assembler Production Line Name Role Phone Adeel Urbano KIRBY Primary Care Provider [phone] Reason for Visit * Reason Onset Date Comments TeleHealth 06/14/2020 Appt 06/15/20 Encounter Details Date Type Department Care Team (Late st Contact Info) Description 06/14/2020 [place] [address] Karie Reid SHELL TRIM TOOL SETTER [facility] [place] [address] TeleHealth (Appt 06/15/20) Social History Tobacco Use Types Packs/Day Years [...] encounter Miscellaneous Notes * Telephone Encounter - Lori Rodriguez CMA - 06/14/2020 10:51 AM EST Did not speak with patient to review medications and allergies prior to upcoming tele- appointment scheduled with Neurosurgery provider. documented in this encounter Plan of Treatment Upcoming Encounters Date Type Department Care Team (Late st Contact Info) Description 04/15/2024 10:00 AM EDT Hospital Encounter Non-Invasive [place] [address] Arrived documented as of this encounter Goals [...] on filedocumented in this encounter Care Teams Assembler Production Line Relationship Specialty Start Date End Date Urbano Denis DO [address] [place] [address] PCP - General 09/03/12 03/17/22 Ruchi Valles RN Nurse Clinic Transplant Surgery 07/30/15 documented as of this encounter
--- OUTSIDE RECORDS SUMMARY | 2024-02-14 11:20 | XMS_ITS | Encounter Summary ---
Author Organization [facility] [place] [address] Care Team Providers Care Power Sewing Machine Operator Name Role Phone Adeel Urbano KIRBY Primary Care Provider Reason for Visit * Reason Comments Medication Refill Encounter Details Date Type Department Care Team (Late st Contact Info) Description 04/18/2020 Refill [place] [address] Tal Eagle MD [facility] [place] [address] Social History Tobacco Use Types Packs/Day Years [...] EDT Hospital Encounter Non-Invasive [place] [address] Arrived documented as of this encounter Goals Goal Patient Goal Type Associated Problems Recent Progress Patient-Stated? Author [facility] Medication Compliance and Understanding Patient Facing Action Plan On track( 017 10:41 AM EDT) Selena Scott, [facility] Note: Patient Goal: Clear hepatitis C Timeframe to meet goal: within 12 weeks of therapy documented as of this encounter Visit Diagnoses Not on filedocumented in this encounter Care Teams Power Sewing Machine Operator Relationship Specialty Start Date End Date Urbano Denis DO [address] [place] [address] PCP - General 09/03/12 03/17/22 Ruchi Valles RN Nurse Clinic Transplant Surgery 07/30/15 documented as of this encounter
--- OUTSIDE RECORDS SUMMARY | 2024-02-14 11:20 | XMS_ITS | Encounter Summary ---
Author Organization [facility] [place] [address] Care Team Providers Care Lining Cleaner Name Role Phone Adeel Urbano KIRBY Primary Care Provider [phone] Encounter Details Date Type Department Care Team (Late st Contact Info) Description 06/25/2020 External Results Solid [place] [address] Tal Eagle MD [facility] [place] [address] Social History Tobacco Use Types Packs/Day Years [...] AM EDT Hospital Encounter Non-Invasive [place] [address] Arrived documented as of this encounter Goals Goal Patient Goal Type Associated Problems Recent Progress Patient-Stated? Author [facility] Medication Compliance and Understanding Patient Facing Action Plan On track( 017 10:41 AM EDT) No Selena Cisneros, [facility] Note: Patient Goal: Clear hepatitis C Timeframe to meet goal: within 12 weeks of therapy documented as of this encounter Procedures Procedure Name Priority Date/Time Associated Diagnosis Comments LAB SCAN Routine 06/25/2020 12:00 AM EST documented in this encounter Results * Scan Doc: Lab (06/25/2020 12:00 AM EST) Tal Eagle MD MEDIA MGR SCAN EX T ORDR/RSLT documented in this encounter Visit Diagnoses Not on filedocumented in this encounter Care Teams Lining Cleaner Relationship Specialty Start Date End Date Urbano Denis DO [address] [place] [address] PCP - General 09/03/12 03/17/22 Ruchi Valles RN Nurse Clinic Transplant Surgery 07/30/15 documented as of this encounter
--- OUTSIDE RECORDS SUMMARY | 2024-02-14 11:20 | XMS_ITS | Encounter Summary ---
Author Organization [facility] [place] [address] Care Team Providers Care Sap Business Intelligence Consultant Name Role Phone Adeel Urbano KIRBY Primary Care Provider [phone] Reason for Visit * Reason Comments Medication Refill Encounter Details Date Type Department Care Team (Late st Contact Info) Description 08/16/2020 Refill Cardiology at [address] [address] Byron Brown MD [facility] [place] [address] Medication Refill Social History Tobacco Use Types [...] AM EDT Hospital Encounter Non[place] [phone] Arrived documented as of this encounter Goals Goal Patient Goal Type Associated Problems Recent Progress Patient-Stated? Author [facility] Medication Compliance and Understanding Patient Facing Action Plan On track( 017 10:41 AM EDT) Selena Scott, [facility] Note: Patient Goal: Clear hepatitis C Timeframe to meet goal: within 12 weeks of therapy documented as of this encounter Visit Diagnoses Diagnosis Atrial fibrillation with RVR - had flutter initially, then fib Atrial fibrillation documented in this encounter Care Teams Sap Business Intelligence Consultant Relationship Specialty Start Date End Date Urbano Denis DO [address] [place] [address] [address] [place] [address] PCP - General 09/03/12 03/17/22 Ruchi Valles RN Nurse Clinic Transplant Surgery 07/30/15 documented as of this encounter
--- OUTSIDE RECORDS SUMMARY | 2024-02-14 11:20 | XMS_ITS | Encounter Summary ---
[place] [address] Care Team Providers Care Correspondence Review Clerk Name Role Phone AdeelUrbano toscano Primary Care Provider [phone] Reason for Visit * Reason Onset Date Comments Results 05/08/2020 Negative Covid Encounter Details Date Type Department Care Team (Late st Contact Info) Description 05/08/2020 [place] [address] Huyen Garrison RN Results (Negative Covid) Social History Tobacco Use Types Packs/Day Years [...] encounter Miscellaneous Notes * Telephone Encounter - Huyen Garrison RN - 05/08/2020 12:36 PM EST Called patient to advise of Negative Covid 19 test results. Testing was requested for asymptomatic reasons. All questions from patient have been addressed. Pre-op testing documented in this encounter Plan of Treatment Upcoming Encounters Date Type Department Care Team (Late st Contact Info) Description 04/15/2024 10:00 AM EDT Hospital Encounter Non-[place] [phone] Arrived documented as of this encounter Goals [...] on filedocumented in this encounter Care Teams Correspondence Review Clerk Relationship Specialty Start Date End Date Urbano Denis DO [address] [place] [address] [facility] [address] [place] [address] PCP - General 09/03/12 03/17/22 Ruchi Valles RN Nurse Clinic Transplant Surgery 07/30/15 documented as of this encounter
--- OUTSIDE RECORDS SUMMARY | 2024-02-14 11:20 | XMS_ITS | Encounter Summary ---
Author Organization [facility] [place] [address] Care Team Providers Care Acid Conditioning Worker Name Role Phone AdeelUrbano Primary Care Provider Encounter Details Date Type Department Care Team (Late st Contact Info) Description 04/19/2020 [place] [phone] Layla Pond RN Social History Tobacco Use Types Packs/Day [...] encounter Miscellaneous Notes * Telephone Encounter - Layla Pond RN - 04/19/2020 4:16 PM EDT Cody Bolden [phone] Caller: Mara () Reason for call: wants to know what meds need to be stopped pre-op for surgery on 05/10/20 Plan: After review of several notes, I found recommendations from cardiology stating he is to continue the ASA 81 mg and stop the Eliquis 2 days pre-op. Mara verbalized understanding these directions and repeated them back correctly. documented in this encounter Plan of Treatment Upcoming Encounters Date Type Department Care Team (Late st Contact Info) Description 04/15/2024 10:00 AM EDT Hospital Encounter Non-Invasive [place] [address] Arrived documented as of this encounter Goals Goal Patient Goal Type Associated Problems Recent Progress Patient-Stated? Author [facility] Home Medication Compliance and Understanding Patient Facing Action Plan On track( 017 10:41 AM EDT) No Selena Cisneros, [facility] Note: Patient Goal: Clear hepatitis C Timeframe to meet goal: within 12 weeks of therapy documented as of this encounter Visit Diagnoses Not on filedocumented in this encounter Care Teams Acid Conditioning Worker Relationship Specialty Start Date End Date Urabno Denis DO [address] [place] [address] PCP - General 09/03/12 03/17/22 Ruchi Valles RN Nurse Clinic Transplant Surgery 07/30/15 documented as of this encounter
--- OUTSIDE RECORDS SUMMARY | 2024-02-14 11:20 | XMS_ITS | Encounter Summary ---
Author Organization [facility] Address [facility] [place] [address] Care Team Providers Care Senior Microsoft Net Developer Name Role Phone Urbano Denis DO Primary Care Provider [phone] Reason for Visit * Auth/Cert Specialty Diagnoses / Procedures Referred By Humberto flor Referred To Contact Diagnoses Left L45 radiculopathy bilateral lateral recess stenosis Procedures PRO LAMINEC/FACETECT/FORAMIN, LUMBAR 1 SEG PRO LAMINOTOMY, LUMBAR DISK, 1 INTRSP PRG FLUOROSCOPY EXAM UP TO 1 HR PHY OR OTH HLTH CARE PROV PRO MICROSURG TECHNIQUES, REQ OPER MICROSCOPE LAMINECTOMY, FACETECTOMY & FORAMINOTOMY,LUMBAR, ONE LEVEL (WRVU 15.37) LAMINOTOMY, DECOMPRESSION, FORAMINOTOMY, LUMBAR (WRVU 13.18) FLUOROSCOPY (WRVU 0.17) MICROSCOPE USE (WRVU 3.46) MODIFIER METRX SYS. Referral ID Status Reason Start Date Expiration Date Visits Re quested Visits Authorized [id number] 1 1 Encounter Details Date Type Department Care Team (Latest Contact Info) Description 05/10/2020 5:41 AM EST - 05/11/2020 1:46 PM EST Hospital Encounter [place] [id number] Joseph Ang MD [facility] [place] [address] [place] [address] Discharge Disposition: Home Social History Tobacco Use [...] Sign Reading Time Taken Comments Blood Pressure 182/67 05/11/2020 11:33 AM EST Pulse 58 05/11/2020 11:33 AM EST Temperature 36.7 ??C (98.1 ??F) 05/11/2020 11:[address] Respiratory Rate 18 05/11/2020 7:50 AM EST Oxygen Saturation 93% 05/11/2020 11:33 AM EST Inhaled Oxygen Concentration - - Weight - - Height - - Body Mass Index - - documented in this encounter Discharge Summaries * Martina Hinds PA - 05/11/2020 8:11 AM EST Patient Name: Cody Bolden Patient Age: 69 y.o. Admit date: 05/10/2020 Discharge Date and Time: 05/11/20 Attending Physician: Joseph Ang MD Discharging Provider: MCKINLEY Hernández Discharging Service: NEUROSURGERY Operations/Major Procedures: Procedure(s) (LRB): LAMINECTOMY, FACETECTOMY & FORAMINOTOMY,LUMBAR, ONE LEVEL (WRVU 15.37) (N/A) LAMINOTOMY, DECOMPRESSION, FORAMINOTOMY, LUMBAR (WRVU 13.18) (N/A) FLUOROSCOPY (WRVU 0.17) (N/A) MICROSCOPE USE (WRVU 3.46) (N/A) MODIFIER METRX SYS. (N/A) Active Hospital Problems: Active Hospital Problems Diagnosis ??? Herniated lumbar intervertebral disc Resolved Hospital Problems No resolved problems to display. Active Non Hospital Problems: Active Non-Hospital Problems Diagnosis ??? CAD (coronary artery disease) ??? Left leg pain ??? Atrial fibrillation with RVR - had flutter initially, then fib ??? Hydronephrosis ??? Obesity (BMI 30.0-34.9) ??? Debility ??? Pain of right lower extremity ??? Vitamin D deficiency ??? 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 CAH (chronic active hepatitis) ??? Type 2 diabetes mellitus with complication, without long-term current use of insulin ??? H/O kidney transplant ??? Aftercare following organ transplant ??? Dehydration ??? Ureteral stricture ??? Enterococcal bacteremia ??? Kidney transplant infection ??? Hepatitis C virus infection ??? CGN (chronic glomerulonephritis) ??? Hypertension ??? DJD (degenerative joint disease) ??? Hematuria History of Presentation: Per review of relevant records: Franko Torres, 03/27/2020 Mr.??Yuan??is a pleasant 69 y.o.??male??who was set to undergo L4-[address] Bradford but referred to [facility] [facility] due anesthesiology concerns and complexity of care given cardiac history (CAD, h/o NSTEMI, s/p PCI, A-fib, on OAC, and ASA) and immunosuppression for renal transplant. ??He reports a history of bilateral leg pain from the back down the buttocks to the posterior thighs not going beyond the knees. ??Sitting exacerbates his pain, as does rising from a seated position. ??Walking helps his pain. ??He denies weakness and numbness. ??He reports his gait is shuffling. He was noted to have 4+/5 weakness in his LET tibialis anterior and absent achilles' reflexes. L-MRI revealed a L4-L5 disc bulge eccentric to left causing neuroforaminal stenosis. A minimally invasive LEFT L4-L5 discectomy was offered and he elected to proceed with the operation. Hospital Course: On 05/10/2020, Cody Bolden presented to [facility] for the above mentioned procedure which he tolerated well. He was admitted to the Neurosurgical service post-operatively for monitoring and pain management. He tolerated a carb- controlled diet. He was able to ambulate unassisted. He was voiding urine without difficulty. It was determined that he was stable and safe for discharge to home on 05/11/20. Important Studies and Lab Data: Labs: Recent Results (from the past 24 hour(s)) POCT Glucose Result Value Ref Range POC Glucose 151 65 - 199 mg/dL POCT Glucose Result Value Ref Range POC Glucose 222 (H) 65 - 199 mg/dL POCT Glucose Result Value Ref Range POC Glucose 205 (H) 65 - 199 mg/dL Studies: Xr Fluoro No Rad <1hr - Or Use Result Date: 05/10/2020 This exam is auto-finalizing. No interpretation was done. Xr Chest Pa & Lateral (generic) Result Date: 04/11/2020 EXAMINATION: XR CHEST PA AND LATERAL (GENERIC) CLINICAL HISTORY: preop TECHNIQUE: PA and lateral views of the chest COMPARISON: None FINDINGS: The lungs are clear. No pleural effusion or pneumothorax. The cardiomediastinal silhouette is unchanged. No acute osseous abnormality. No acute cardiopulmonary process. I have personally reviewed the image(s) and the resident's interpretation and agree with the findings, Nadia Hernandez MD at 04/11/2020 11:54 AM Thank youfor letting us participate in the care of this patient. For questions regarding this report, pleasecontact the number below. Xr Lumbar Spine Ap Flexion And Extension Only Result Date: 04/11/2020 EXAMINATION: XR LUMBAR SPINE AP FLEXION AND EXTENSION ONLY CLINICAL HISTORY: preop TECHNIQUE: AP, Flexion and extension lateral views of the lumbar spine COMPARISON: MRI lumbar spine 04/28/2019; CT abdomen and pelvis February 07, 2019 FINDINGS: There are 5 nonrib-bearing lumbar vertebra. Vertebral body heights are maintained. No spondylolisthesis. Alignment is preserved without translation from flexion to extension. Mild intervertebral joint space narrowing with anterior endplate osteophyte formation of the lumbar vertebra. Osteophytes and sclerosis are present at the L4-S1 facet joints. Multilevel degenerative disc disease without dynamic instability of the lumbar spine. I have personally reviewed the image(s) and the resident's interpretation and agree with the findings, Jemma Pyle MD at 04/11/2020 2:20 PM Thank you for letting us participate in the care of this patient. Forquestions regarding this report, please contact the number below. Pending Studies and Lab Data: n/a Discharge Condition: Good Discharge to: Home Discharge Medications: Your Medications New Medications Dose Details oxyCODONE 5 mg Tab Commonly known as: Roxicodone Take 1 tablet by mouth every 4 hours as needed for Pain (moderate pain (4-6)). 5 mg Quantity: 20 tablet Refills: 0 senna-docusate 8.6-50 mg Tab Commonly known as: Pericolace Take 2 tablets by mouth 2 times daily as needed for Constipation. 2 tablet Quantity: 60 tablet Refills: 0 Continued medications, unchanged Dose Details acetaminophen 500 mg Tab Commonly known as: Tylenol Take 1,000 mg by mouth every 8 hours as needed for Pain. 1,000 mg Refills: 0 amLODIPine 2.5 mg Tab Commonly known as: Norvasc Take 2.5 mg by mouth daily. 2.5 mg Refills: 0 ascorbic acid (Vitamin C) 500 mg Tab Commonly known as: Vitamin C Take 1 tablet by mouth 3 times daily. 500 mg Quantity: 30 tablet Refills: 3 atorvastatin 40 mg Tab Commonly known as: Lipitor Take 1 tablet by mouth every evening. 40 mg Quantity: 90 tablet Refills: 3 calciTRIoL 0.5 mcg Cap Commonly known as: Rocaltrol TAKE ONE CAPSULE BY MOUTH EVERY DAY Quantity: 90 capsule Refills: 1 glipiZIDE XL 10 mg Tr24 Commonly known as: Glucotrol XL Take 10 mg by mouth daily. 10 mg Refills: 0 levothyroxine 137 mcg Tab Commonly known as: SYNTHROID Take 137 mcg by mouth daily. 137 mcg Refills: 0 Magnesium Gluconate 27 mg magnesium (500 mg) Tab Take two tablets in am- one tablet noon - two tablets evening Quantity: 450 tablet Refills: 3 metoprolol succinate XL 25 mg Tablet sr Commonly known as: Toprol-XL Take 1 tablet by mouth daily. 25 mg Quantity: 90 tablet Refills: 3 mycophenolate 250 mg Cap Commonly known as: Cellcept Take 1 capsule by mouth 2 times daily. Kidney Transplant 09/16/2015 Dx code Z94.0 250 mg Quantity: 180 capsule Refills: 3 nitroGLYcerin 0.4 mg Subl Commonly known as: Nitrostat Place 1 tablet under the tongue every 5 minutes as needed for Chest pain. 0.4 mg Quantity: 90 tablet Refills: 12 potassium phosphate (monobasic) 500 mg Tbso Commonly known as: K-Phos Original Take 2 tablets by mouth 2 times daily. DISSOLVE IN WATER PRIOR TO ADMINISTRATION 1,000 mg Quantity: 360 tablet Refills: 3 tacrolimus 1 mg Cap Commonly known as: Prograf TAKE TWO CAPSULES BY MOUTH EVERY MORNING, TAKE ONE CAPSULE BY MOUTH NIGHTLY . Kidney Transplant 09/16/2015 dx code Z94.0 Quantity: 270 capsule Refills: 3 tamsulosin 0.4 mg Cap Commonly known as: Flomax Take 0.4 mg by mouth daily. 0.4 mg Refills: 0 STOPPED Medications apixaban 5 mg Tab Commonly known as: Eliquis aspirin EC 81 mg Tbec Updated Allergies/ADRs: No Known Allergies Instructions Given to Patient at Discharge: Patient Instructions SPINAL SURGERY DISCHARGE INSTRUCTIONS PRESCRIPTION INSTRUCTIONS: Please see the medication reconciliation list on this discharge summary for a current list of your medications. Stop the use of blood thinning medications until instructed otherwise by your surgical team. This includes medications known as antiplatelets and anticoagulants. Common bkxe-otr-bkfnhsi medications which should be avoided include Aspirin, These medications are sometimes combined with other drugs orare sold under a trade name. Common prescription medications which should be avoided include Plavix(clopidogrel) and Coumadin (warfarin) among others. DO NOT RESTART YOUR ELIQUIS OR ASPIRIN WHEN YOU GET HOME. IT MAY BE RESTARTED ON 05/24 under the supervision of your primary care provider. WHEN TO SEEK MEDICAL CARE: Signs or symptoms of an infection: - Fever over 101F - Redness, swelling, or increasing pain around your incision - Drainage of pus, blood, or clear fluid from your incision New neurologic symptoms: - New sensory changes such as numbness, tingling, or altered sensation - New weakness, unsteadiness, difficulty walking, or difficulty using your hands - New pain that radiates down your spine or into one of you extremities - New bowel or bladder dysfunction such as incontinence or retention Constipation not relieved by diet and/or yiyl-onb-emmikhm stool softeners and laxatives Nausea/vomiting (upset stomach) not controlled with anti-nausea medication Symptoms of a deep venous thrombosis (DVT) or pulmonary embolism (PE): - Swelling/warmth/redness of the leg - Pain in the leg, which can be worse with standing or walking - Chest pain or shortness of breath To help prevent a DVT: - Exercise regularly. Walking, at least several times daily, is helpful. - Ankle pump exercises (like pressing and releasing the gas pedal) should be done regularly. - Keep hydrated with water or other clear liquids (coffee/tea/cola can dehydrate you). - Avoid alcohol and crossing your legs. - Remember not to sit or lay in bed, while awake, for prolonged amounts of time. WOUND CARE: - Keep incisional site clean and dry. You can remove your dressing 2 days after surgery. - You may shower and shampoo incisional site, per your usual routine, 4 days after surgery. DIET: - You may resume your usual diet. - A well-balanced diet is recommended for wound healing. - Prune juice or prunes can be added to your diet to assist with any constipation. ACTIVITY: - You should avoid lifting more than 5 lbs. - Restrict strenuous activity (such as running, jumping, jogging, shoveling, etc.) until cleared byyour surgical team DRIVING: - Do not drive while taking narcotic pain medication. - You may return to driving 2 weeks after surgery. SMOKING: - Smoking has a negative impact on bone healing, in terms of delayed union, nonunion, and more complications. FOLLOW UP PLAN: Incision: [x] Your sutures are absorbable and do not need to be removed. [] Please follow up for suture/staple removal in 10-14 days with your Primary Care Provider or withthe Neurosurgery MANAGER RESEARCH AND DEVELOPMENT/RN. Appointments: Please follow up in the Neurosurgery Clinic in 4-6 weeks. Please call the Neurosurgery Office at [phone] if you do not receive a scheduled appointment within two weeks. Your follow-up appointment will be with: [] Dr. Gomez [x] Dr. Ang [] Dr. Calloway [] Dr. Barrett [] Dr. Gutierrez [] Dr. Stewart [] Dr. Zafar HOW TO REACH NEUROSURGERY Contact your Doctor Office Hours: Thursday through Thursday, 8am-5pm. Call . On weekends or after office hours: Call [phone] and ask the chemical etch operator to page the Neurosurgery Resident station captain. IMPORTANT PHONE NUMBERS: Outpatient Nurse (Layla Pond) Inpatient Nurses Neurosurgical Resident On-Call (after 5pm or before 8am) Neurosurgery offices (Thursday through Thursday between 8am-5pm): Adult Neurosurgery Dr. Richard Barrett Pediatric Neurosurgery Dr. Franko Calloway Mid-level practitioners Franko Torres, Physician Nursing Associate Cristi Diana, Physician Nursing Associate Yaritza Guzman, Nurse Practitioner Karie Almeida, Nurse Practitioner * Your surgeon may not be calliope player, so be ready to tell about yourself and your surgery when you call, especially after hours or on the weekend. MCKINLEY Hernández 05/11/2020 Click refresh button and update discharge date immediately prior to signing discharge summary to ensure all pulliam are updated documented in this encounter Discharge Instructions * Patient Instructions* Martnia Hinds PA - 05/11/2020 8:20 AM EST SPINAL SURGERY DISCHARGE INSTRUCTIONS PRESCRIPTION INSTRUCTIONS: Please see the medication reconciliation list on this discharge summary for a current list of your medications. Stop the use of blood thinning medications until instructed otherwise by your surgical team. This includes medications known as antiplatelets and anticoagulants. Common spkq-pxv-cqsbvmz medications which should be avoided include Aspirin, These medications are sometimes combined with other drugs orare sold under a trade name. Common prescription medications which should be avoided include Plavix(clopidogrel) and Coumadin (warfarin) among others. DO NOT RESTART YOUR ELIQUIS OR ASPIRIN WHEN YOU GET HOME. IT MAY BE RESTARTED ON 05/24 under the supervision of your primary care provider. WHEN TO SEEK MEDICAL CARE: Signs or symptoms of an infection: - Fever over 101F - Redness, swelling, or increasing pain around your incision - Drainage of pus, blood, or clear fluid from your incision New neurologic symptoms: - New sensory changes such as numbness, tingling, or altered sensation - New weakness, unsteadiness, difficulty walking, or difficulty using your hands - New pain that radiates down your spine or into one of you extremities - New bowel or bladder dysfunction such as incontinence or retention Constipation not relieved by diet and/or ewot-yxf-ysngmtx stool softeners and laxatives Nausea/vomiting (upset stomach) not controlled with anti-nausea medication Symptoms of a deep venous thrombosis (DVT) or pulmonary embolism (PE): - Swelling/warmth/redness of the leg - Pain in the leg, which can be worse with standing or walking - Chest pain or shortness of breath To help prevent a DVT: - Exercise regularly. Walking, at least several times daily, is helpful. - Ankle pump exercises (like pressing and releasing the gas pedal) should be done regularly. - Keep hydrated with water or other clear liquids (coffee/tea/cola can dehydrate you). - Avoid alcohol and crossing your legs. - Remember not to sit or lay in bed, while awake, for prolonged amounts of time. WOUND CARE: - Keep incisional site clean and dry. You can remove your dressing 2 days after surgery. - You may shower and shampoo incisional site, per your usual routine, 4 days after surgery. DIET: - You may resume your usual diet. - A well-balanced diet is recommended for wound healing. - Prune juice or prunes can be added to your diet to assist with any constipation. ACTIVITY: - You should avoid lifting more than 5 lbs. - Restrict strenuous activity (such as running, jumping, jogging, shoveling, etc.) until cleared byyour surgical team DRIVING: - Do not drive while taking narcotic pain medication. - You may return to driving 2 weeks after surgery. SMOKING: - Smoking has a negative impact on bone healing, in terms of delayed union, nonunion, and more complications. FOLLOW UP PLAN: Incision: [x] Your sutures are absorbable and do not need to be removed. [] Please follow up for suture/staple removal in 10-14 days with your Primary Care Provider or withthe Neurosurgery MANAGER RESEARCH AND DEVELOPMENT/RN. Appointments: Please follow up in the Neurosurgery Clinic in 4-6 weeks. Please call the Neurosurgery Office at [phone] if you do not receive a scheduled appointment within two weeks. Your follow-up appointment will be with: [] Dr. Gomez [x] Dr. Ang [] Dr. Calloway [] Dr. Barrett [] Dr. Gutierrez [] Dr. Stewart [] Dr. Zafar documented in this encounter Medications at Time [...] Tablet Take 137 mcg by mouth daily. senna-docusate (Pericolace) 8.6-50 mg Tablet Take 2 tablets by mouth 2 times daily as needed for Constipation. 60 tablet 05/11/2020 10/08/2020 oxyCODONE (Roxicodone) 5 mg Tablet Take 1 tablet by mouth every 4 hours as needed for Pain (moderate pain (4-6)). 20 tablet 05/11/2020 10/08/2020 calciTRIoL (Rocaltrol) 0.5 mcg Capsule TAKE ONE CAPSULE BY MOUTH EVERY DAY 90 capsule 1 04/19/2020 10/08/2020 atorvastatin (Lipitor) 40 mg TabletIndications:Co ronary artery disease, angina presence unspecified, unspecified vessel or lesion type, unspecified whether [place] or transplanted heart Take 1 tablet by mouth every evening. 90 tablet 3 02/09/2020 01/28/2021 potassium phosphate, monobasic, (K-Phos Original) 500 mg Tablet, Soluble Take 2 tablets by mouth 2 times daily. DISSOLVE IN WATER PRIOR TO ADMINISTRATION 360 tablet 3 10/28/2019 10/08/2020 Magnesium Gluconate 27 mg magnesium (500 mg) Tablet Take two tablets in am- one tablet noon - two tablets evening 450 tablet 3 10/28/2019 10/24/2020 amLODIPine (Norvasc) 2.5 mg Tablet Take 10 mg by mouth daily. 03/19/2021 mycophenolate (Cellcept) 250 mg Capsule Take 1 capsule by mouth 2 times daily. Kidney Transplant 09/16/2015 Dx code Z94.0 180 capsule 3 08/30/2019 08/13/2020 tacrolimus (Prograf) 1 mg Capsule TAKE TWO CAPSULES BY MOUTH EVERY MORNING, TAKE ONE CAPSULE BY MOUTH NIGHTLY . Kidney Transplant 09/16/2015 dx code Z94.0 270 capsule 3 08/30/2019 09/10/2020 metoprolol succinate XL (Toprol-XL) 25 mg Tablet Sustained Release 24 hrIndications:Atrial fibrillation with RVR Take 1 tablet by mouth daily. 90 tablet 3 07/29/2019 08/15/2020 ascorbic acid, vitamin C, (VITAMIN C) 500 mg Tablet Take 1 tablet by mouth 3 times daily. 30 tablet 3 06/25/2016 12/27/2020 documented as of this encounter Progress Notes * Bobby Raygoza MD - 05/11/2020 5:27 AM EST NEUROSURGERY PROGRESS NOTE ID: Cody Bolden is a 69 y.o. male HD# 0 with L L45 HNP and radiculopathy who presents for L L45 discectomy/decompression. ?? POD # 1 Day Post-Op INTERVAL HX/ROS: MIRIAM Pain improved following surgery MEDICATIONS: Scheduled Meds: ??? amLODIPine 2.5 mg Oral Daily ??? atorvastatin 40 mg Oral QPM ??? calciTRIoL 0.5 mcg Oral Daily ??? levothyroxine 137 mcg Oral Daily ??? metoprolol succinate XL 25 mg Oral Daily ??? mycophenolate 250 mg Oral BID ??? potassium phosphate (monobasic) 1,000 mg Oral BID ??? tamsulosin 0.4 mg Oral Daily ??? sodium chloride 0.9 % (flush) 5 mL Intravenous BID ??? senna-docusate 2 tablet Oral BID ??? methocarbamoL 500 mg Oral Q6H ??? insulin lispro 1-6 Units Subcutaneous TID AC ??? tacrolimus 2 mg Oral Daily And ??? tacrolimus 1 mg Oral Nightly Continuous Infusions: PRN Meds: gelatin adsorbable, thrombin (Bovine), BUpivacaine (PF), BUpivacaine liposome (PF), methylPREDNISolone sodium succinate (PF), sodium chloride 0.9 % (flush), lidocaine, bisacodyL, magnesium hydroxide, polyethylene glycoL, magnesium citrate OR magnesium citrate, ondansetron OR ondansetron, labetaloL, lidocaine, morphine, oxyCODONE OR oxyCODONE, glucose 40% oral geL OR dextrose 10% OR glucagon (human recombinant), calcium carbonate EXAM: Vitals: Temp: [36.4 ??C (97.5 ??F)-37.1 ??C (98.8 ??F)] Heart Rate: [48-64] Resp: [12-26] BP: (130-175)/(48-103) SpO2: [91 %-98 %] Heart Rate from SpO2: [48 bpm-79 bpm] BMI: I/O: I/O last 3 completed shifts: In: 1100 [I.V.:1100] Out: 735 [Urine:710; Blood:25] GEN:NAD NEURO:AA+Ox3 Speech fluent and appropriate. MOTOR: RUE:5/5 LUE:5/5 RLE: 5/5 LLE: 5/5 No pronator drift LT sensation intact x 4 Dressings dry and intact LABS: No results for input(s): WBC, HGB, PLATELET in the last 72 hours. No results for input(s): NA, K, CL, CO2, BUN, CREATININE in the last 72 hours. No results for input(s): PT, INR in the last 72 hours. IMAGING: No new imaging Assessment: Cody Bolden is a 69 y.o. male with L L45 HNP and radiculopathy who presents for LL45 discectomy/decompression. Doing well post op. Plan: - Likely home today PLEASE PAGE [phone] WITH QUESTIONS Active Hospital Problems Diagnosis ??? Herniated lumbar intervertebral disc Resolved Hospital Problems No resolved problems to display. Active Non-Hospital Problems Diagnosis ??? CAD (coronary artery disease) ??? Left leg pain ??? Atrial fibrillation with RVR - had flutter initially, then fib ??? Hydronephrosis ??? Obesity (BMI 30.0-34.9) ??? Debility ??? Pain of right lower extremity ??? Vitamin D deficiency ??? 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 CAH (chronic active hepatitis) ??? Type 2 diabetes mellitus with complication, without long-term current use of insulin ??? H/O kidney transplant ??? Aftercare following organ transplant ??? Dehydration ??? Ureteral stricture ??? Enterococcal bacteremia ??? Kidney transplant infection ??? Hepatitis C virus infection ??? CGN (chronic glomerulonephritis) ??? Hypertension ??? DJD (degenerative joint disease) ??? Hematuria Bobby Raygoza MD 05/11/2020 * Duyen Shoemaker RN - 05/10/2020 6:28 PM EST Patient Name: Cody Bolden Patient Age: 69 y.o. Birthdate: 1950 Admit date: 05/10/2020 Attending Physician: Joseph Ang MD Pt arrived to [facility] from PACU in a bed at 1330. S/P Laminectomy VSS, on 2L NC. A&Ox4 Incision site lower back covered w/ gauze and tegaderm, CDI Denies pain, reports soreness at incision site Denies tingling/numbness, +CSMs, +2 radial/DP pulses Tolerating PO intake. Voiding spontaneously. Ambulating w/o device, stand-by assist On telemetry, NSR w/ 1st degree AV block CBG taken @ 1600, covered w/ 1 unit of insulin Will continue to monitor documented in this encounter H&P Notes * Bobby Raygoza MD - 05/10/2020 7:16 AM EST Neurosurgery Pre-operative H&P 05/10/2020 Cody Bolden [id number] CC: L Leg pain HPI: Cody Bolden is a 69 y.o. male with L L45 HNP and radiculopathy who presents for L L45 discectomy/decompression. Denies headache, nausea, vomiting, numbness, weakness, paresthesias, LOC, seizures, difficulties with balance, visual or auditory symptoms. Denies bowel or bladder symptoms. PMH/PSH: Past Medical History: Diagnosis Date ??? RAY [...] ??? JOINT REPLACEMENT new right knee ??? PRO ANASTOMOSIS, AV, ANY SITE Left 05/09/2015 AV FISTULA CREATION, DIRECT HEMODIALYSIS, ANY SITE, EG ASHWINI FISTULA UPPER EXTREMITY performed by Que Amaro MD at [facility] OR ??? PRO CYSTOURETHROSCOPY, URETER CATHETER Left 06/17/2018 CYSTO, RETROGRADE, URETEROPYELOGRAPHY (WRVU 2.37) [facility] Ed[facility] III[facility] ??? PRO REIMPLANT URETER, SINGLE URETER Left 05/20/2016 @URETERONEOCYSTOSTOMY ANASTOMOSIS OF SINGLE URETER TO BLADDER performed by Santosh Arredondo MD at [facility] OR ??? PRO REIMPLANT URETER, SINGLE URETER N/A 05/20/2016 @URETERONEOCYSTOSTOMY ANASTOMOSIS OF SINGLE URETER TO BLADDER performed by Que Amaro MD at [facility] OR ??? PRO TOTAL KNEE ARTHROPLASTY Right 11/25/2017 TOTAL KNEE ARTHROPLASTY (WRVU 20.72) performed by Breezy Dale MD at [facility] OR ??? PRO TRANSPLANT, PREP CADAVER RENAL GRAFT N/A 09/16/2015 @PREPARATION CADAVERIC RENAL ALLOGRAFT performed by Franko Larkin MD at [facility] OR ??? PRO TRANSPLANTATION OF KIDNEY N/A 09/16/2015 @KIDNEY TRANSPLANT, WITHOUT RECIPIENT NEPHRECTOMY performed by Franko Larkin MD at [facility] OR ??? TISSUE TRANSFER kidney ??? US RENAL TRANSPLANT LEFT Left 01/31/2019 US Renal Transplant Left 01/31/2019 [facility] RAD ULTRASOUND ??? US RENAL TRANSPLANT LEFT Left 02/07/2019 US Renal Transplant Left 02/07/2019 [facility] RAD ULTRASOUND Medications: No current facility-administered medications on file prior [...] Take 2.5 mg by mouth daily. ??? mycophenolate (Cellcept) 250 mg Capsule Take 1 capsule by mouth 2 times daily. Kidney Transplant 09/16/2015 Dx code Z94.0 180 capsule 3 ??? tacrolimus (Prograf) 1 mg Capsule TAKE TWO CAPSULES BY MOUTH EVERY MORNING, TAKE ONE CAPSULE BYMOUTH NIGHTLY . Kidney Transplant 09/16/2015 dx code Z94.0 270 capsule 3 ??? metoprolol succinate XL (Toprol-XL) 25 mg Tablet Sustained Release 24 hr Take 1 tablet by mouthdaily. 90 tablet 3 ??? tamsulosin (FLOMAX) 0.4 mg Capsule Take 0.4 mg by mouth daily. ??? acetaminophen (TYLENOL) 500 mg Tablet Take 1,000 mg by mouth every 8 hours as needed for Pain. ??? levothyroxine (SYNTHROID) 137 mcg Tablet Take 137 mcg by mouth daily. ??? ascorbic acid, vitamin C, (VITAMIN C) 500 mg Tablet Take 1 tablet by mouth 3 times daily. 30 tablet 3 ??? apixaban (ELIQUIS) 5 mg Tablet Take 1 tablet by mouth 2 times daily. 180 tablet 3 ??? nitroGLYcerin (NITROSTAT) 0.4 mg Tablet, Sublingual Place 1 tablet under the tongue every 5 minutes as needed for Chest pain. 90 tablet 12 Allergies: NKDA Family Hx: Reviewed, noncontributory Social Hx: Nonsmoker Drinks alcohol occasionally Denies illicits ROS: Constitutional: No recent weight loss / fevers / chills / night sweats. HEENT: No recent visual changes / hearing changes. Cardiovascular: No chest pain / palpitations. Pulmonary: No shortness of breath / cough GI: No abdominal pain / vomiting / change in bowel pattern : No dysuria / urinary retention / urinary incontinence. Physical Exam: Vital Signs: BP (!) 150/103 (BP Location (NBP): Right arm) Pulse 55 Temp 36.8 ??C (98.2 ??F) (Temporal) Resp 18 SpO2 96% General: NAD CVS: RRR Resp: CTAB HEENT: Atraumatic, normocephalic Neuro: Mental Status/Cognitive: Awake, alert, oriented x3 Speech: Fluent, appropriate Cranial Nerves: CN II - Visual acuity and pulliam grossly intact, PERRL CN III, IV, - EOMI CN VII - No facial asymmetry CN IX, X - Palate and uvula midline CN XI - Trapezius 5/5 bilat CN XII - Tongue midline Motor: No pronator drift. Tone: Normal Power: Segment Muscle Action Right Left C5 Biceps Elbow flexion 5 5 C6 Extensor carpi radialis Wrist extension 5 5 C7 Triceps Elbow extension 5 5 C8, T1 Hand intrinsics Grasp 5 5 L2 Iliopsoas Hip flexion 5 5 L3 Quadriceps Knee extension 5 5 L4 Tibialis anterior Dorsiflexion 5 5 L5 Extensor hallucis Great toe extension 5 5 S1 Gastrocnemius Plantar flexion 5 5 Reflexes: 2+ and symmetric throughout Sensation in the extremities: Light touch: Intact x 4 Labs: No results for input(s): NA, K, CL, CO2, BUN, CREATININE, GLUCOSE, CALCIUM, MAGNESIUM, PHOS in the last 72 hours. Invalid input(s): CAION No results for input(s): WBC, HGB, HCT, MCV, PLATELET in the last 72 hours. Invalid input(s): RDW No results for input(s): PT, INR, FIBRINOGEN in the last 72 hours. Invalid input(s): PROTHROMBIN No results for input(s): AST, ALT, ALKPHOS, ALB, LIPASE in the last 72 hours. Invalid input(s): TBILI, TP No results for input(s): HDL in the last 72 hours. Invalid input(s): CHOLESTEROL, LDL, TG Assessment and Plan: -Pre-operative labs -OR planning Bobby Raygoza MD documented in this encounter Miscellaneous Notes * Op Note - oJseph Ang MD - 05/11/2020 1:46 PM EST [place] [facility] [place] Neurosurgetry Operative Note Patient Name: Cody Bolden : [id number] MR#: [id number] ?? Case Date: 05/10/2020 ?? Surgeon: Surgeon(s) and Role: * Joseph Ang MD - Primary * Bobby Raygoza MD - Resident * Olga Valencia MD - Assisting Attending ?? Preoperative diagnosis: Left L45 L5S1 radiculopathy Bilateral lateral recess stenosis ?? Postoperative diagnosis: Same ?? Procedure: MIS Left L45 L5S1 Decompression, Left L45 Onlay Facet fusion arthrodesis, Autograft, Allograft, Fluoroscopy ?? Anesthesia: General ?? Findings: Facet hypertrophy and stenosis as expected. ??Indication for Procedure: Cody Bolden is a 69 y.o. year old man with severe left lumbar radiculopathy from lateral recess stenosis and foraminal collapse with central stenosis at L45 and L5S1. Decompression is indicated to alleviate symptoms. Description of Procedure: At the time of surgery the patient underwent induction of a general anesthesia. A moran catheter and appropriate monitoring lines were placed by anesthesia. They were turnedprone on a Marc Spine table and all pressure points carefully padded. Baseline neuromonitoring was obtained. The lumbar region was prepped and draped in standard sterile fashion. Using lateral fluoroscopy a midline incision was made allowing adequate exposure for L4-S1 access. After a left fascial incision, the L45 and L5S1 disc spaces were targeted with the Quadrant dilating system and a 8 mm tubular retractor was positioned along with a 7 cm side to side addition to facilitate exposure. Medial facetectomies at L45 and L5S1 with L4 and S1 laminotomies and an L5 hemilaminectomy with wide left L45 and L5S1 foraminotomies were fashioned with the drill and rongeurs. The ligament was removed and the thecal sac and traversing roots were retracted medially and both the L45and L5S1 disc space were inspected and no gross herniation was noted. Therefore this confirmed decompression of the exiting left L4 and L5 roots and traversing S1 root. However intraoperative findings indicated massive hypertrophy and degeneration of the left L45 facet and it was elected to take down the joint and pack with autograft morselized bone and allograft DBM for a left L45 posterolateral onlay fusion arthrodesis. Neuromonitoring was reported at baseline. The wound was irrigated free of debris. Thrombin soaked gel foam and Depomedrol 40 mg were placed at the decompression and following removal of the retractorthe fascia was closed with 0 Vicryl with 3 0 Vicryl, Exparel was injected for postop pain control, and 4 0 Monocryl follwed by Dermabond was placed for the skin closure followed by a light sterile dressing. The patient was turned supine at the conclusion of the procedure. The patient was extubated and transferred to the postop recovery area in stable condition. ?? Complications: None immediate. EBL: 25 cc ?? Drains: None ?? Specimens removed during surgery: None. ?? Disposition: Extubated to recovery. ?? Condition: Stable. ?? Attestation: Case Date: 05/10/2020 I was present and I participated during the entire procedure (does not need to include opening and closing). Joseph Ang MD 05/13/2020 Joseph Ang MD MS Professor and Chair Section of Neurosurgery Department of Surgery [facility] * Plan of Care - Duyen Shoemaker RN - 05/11/2020 1:46 PM EST Problem: Patient Care Overview Goal: Plan of Care Review Outcome: Outcome (s) achieved Date Met: 05/11/20 05/11/20 0733 Coping/Psychosocial Plan Of Care Reviewed With patient The patient has met discharge criteria per policy. Discharge instruction reviewed and patient discharged to responsible adult. The After Visit Summary (AVS), and accompanying hand-outs have been reviewed with the patient; the patient /family verbalizes understanding at this time. Opportunity for clarification provided. Reportable sign and symptoms have been reviewed with patient. Patient encouraged to call with questions and concerns. Patient???s pain management has been discussed and current pain level has been assessedand patient states that his/her level is tolerable at this time. Teaching done, family patient verbalizes understanding with demonstration back to RN. All new medications have been reviewed with the patient. Prescriptions sent to pharmacy. At time of discharge: My assessment remains unchanged from my previous assessment. incision(s) intact, covered with guaze & tegaderm, no drainage, C/D/I. IV removed no s/s of infection, inflammation, infiltration. Patient ambulating at baseline, eating and drinking without issues at time of D/C Prior to D/C room searched and patient discharged with all belongs. Patient provided with wheelchair and brought to entrance by staff. Goal: Fall Prevention-Safe Patient Handling Outcome: Outcome (s) achieved Date Met: 05/11/20 05/11/20 0733 Stephens Fall Risk History of Falling 0 Secondary Diagnosis 15 Ambulatory Aids 0 Intravenous Therapy/Heparin/Saline Lock 0 Gait/Transferring 0 Mental Status 0 Score 15 OTHER Stephens Fall Risk Low Restraint Interventions Safety Promotion/Fall Prevention activity supervised;nonskid shoes/slippers when out of bed;safety round/check completed Positioning Body Position independent Activity Activity Type activity adjusted per tolerance;ambulated in posey Activity Assistance Provided assistance, stand-by Assistive Device Utilized none Goal: Infection Control Outcome: Outcome (s) achieved Date Met: 05/11/20 05/11/20 0733 Safety Interventions Isolation Precautions standard precautions maintained Infection Prevention environmental surveillance performed;equipment surfaces disinfected;personal protective equipment utilized;rest/sleep promoted;single patient room provided Coping Strategies Supportive Measures active listening utilized;verbalization of feelings encouraged Goal: Discharge Needs Assessment Outcome: Outcome (s) achieved Date Met: 05/11/20 05/11/20 1510 Discharge Needs Assessment Concerns To Be Addressed no discharge needs identified * Care Management - Shira Escalante RN - 05/11/2020 11:02 AM EST D/C planning: Team: neurosurg Pager: [phone] Pt to d/c home via private vehicle. Pt/team feel no d/c needs identified at this time. Pt is aware of d/c plan. Shira Escalante MSN, RN CM clock and watch assembler Office of Care Management Pager #[phone] * Initial Assessments - Shira Escalante RN - 05/11/2020 10:00 AM EST Office of Care Management Assessment Medical record reviewed. Plan of care and patient status discussed with direct care RN and/or Care Team in multidisciplinary rounds. Screening: Last COVID test: 05/07/20 (negative)-requiring a date/time 69 y.o. male here for s/p surgical intervention for herniated lumbar intervertebral disc . Present on Admission: ??? Herniated lumbar intervertebral disc Patient has not been admitted to a hospital within the last 30 days. Information known about that admission: NA. Patient receiving hospital care under Same Day Overnight (OP) status. Admission order reviewed. Primary Insurance on file: [employer] MANAGED MEDICARE Secondary Insurance on file:@ Primary care provider on file: Urbano Denis DO [phone] Advance Directive on file and Code Status: Received, Attempt Cardiopulmonary Resuscitation - Inpatient Patient???s Functional Status:ind with mobility and ADL's Living Situation:lives with in [address] [address] Supports:/family Assessment: Patient with no apparent RNCM/SW needs at this time. No housing, transportation, insurance, resources concerns identified at this time. Supports in place to achieve a safe post-hospital transition. No identified barriers to accessing necessary care and/or follow-up after discharge. Plan: Patient to d/c to home via private vehicle when medically ready. clock and watch assembler/Tire Inspector will continue to follow patient???s progress and remain available if situation changes for coordination of care, psychosocial support and/or discharge planning. Shira Escalante RN Pager [phone] Extension [phone] * Plan of Care - Magdalena Hanna RN - 05/11/2020 2:04 AM EST OUTCOME EVALUATION NOTE: OUTCOME SUMMARY: VSS. Voiding adequate. Denies sob and chest pain. Ambulated unit. Pain controlled with PRN oxy and scheduled robaxin. Back incision CDI. Pt denies numbness/tingling. Pulses palpable. Neuro checks intact. Remains A+Ox4. 5/5 strengths. Pt remains on tele. HR 50-70s. Sinus rhythm, 1st degree AV block.Pt did go into afib briefly, without any symtoms. Frequent PVCs, PACs. 2L overnight due to desat to80s. PLAN MOVING FORWARD: Manage pain, neuro checks, encourage activity INDIVIDUALIZED FALL PREVENTION INTERVENTIONS: Patient-specific fall risk factors per assessment: [current deficits]: Pain meds Assistance [level of assistance required for transfers and ambulation]: SBA Supervision [direct monitoring required during toileting and ADLs]: indep Surveillance [continuous indirect monitoring]: Rounding, call robles within reach, bed locked in low position Patient-specific fall prevention interventions for sensory deficits provided, if applicable: [X] Yes nonskid socks when oob, lighting adjusted CPG GOAL OUTCOME EVALUATION: * Brief Op Note - Joseph Ang MD - 05/10/2020 10:25 AM EST [place] [facility] [place] Neurosurgery Brief Operative Note Patient Name: Cody Bolden : [id number] MR#: [id number] Case Date: 05/10/2020 Surgeon: Surgeon(s) and Role: * Joseph Ang MD - Primary * Bobby Raygoza MD - Resident * Olga Valencia MD - Assisting Attending Preoperative diagnosis: Left L45 radiculopathy bilateral lateral recess stenosis Postoperative diagnosis: Same Procedure: MIS Left L45 L5S1 Decompression, Left L45 Onlay Facet fusion arthrodesis, Autograft, Allograft, Fluoroscopy Anesthesia: General Findings: Facet hypertrophy and stenosis as expected. Complications: None immediate. EBL: 25 cc Drains: None Specimens removed during surgery: None. Disposition: Extubated to recovery. Condition: Stable. Attestation: Case Date: 05/10/2020 I was present and I participated during the entire procedure (does not need to include opening and closing). Joseph Ang MD 05/10/2020 documented in this encounter Plan of Treatment Upcoming Encounters Date Type Department Care Team (Late st Contact Info) Description 04/15/2024 10:00 AM EDT Hospital Encounter Non-Invasive Cardiology Lab [facility] [place] [address] Arrived documented as of this encounter Goals [...] Date/Time Associated Diagnosis Comments POCT GLUCOSE Routine 05/11/2020 11:28 AM EST POCT GLUCOSE Routine 05/11/2020 7:18 AM EST POCT GLUCOSE Routine 05/10/2020 4:39 PM EST XR FLUORO NO RAD <1HR - OR USE Routine 05/10/2020 12:32 PM EST POCT GLUCOSE Routine 05/10/2020 10:47 AM EST POCT GLUCOSE Routine 05/10/2020 8:33 AM EST MODIFIER METRX SYS. 05/10/2020 7 :27 AM EST Left L45 radiculopathy bilateral lateral recess stenosis Microsurg Techniques, Req Oper Microscope ([id number]) 05/10/2020 7:27 AM EST Left L45 radiculopathy bilateral lateral recess stenosis Fluoroscopy Exam Up To 1 Hr Phy Or Ot Hlth Care Prov ([id number]) 05/10/2020 7:27 AM EST Left L45 radiculopathy bilateral lateral recess stenosis Laminotomy, Lumbar Disk, 1 Intrsp ([id number]) 05/10/2020 7:27 AM EST Left L45 radiculopathy bilateral lateral recess stenosis Laminec/Facetect/For wagner, Lumbar 1 Seg ([id number]) 05/10/2020 7:27 AM EST Left L45 radiculopathy bilateral lateral recess stenosis ABORH RECHECK STATUS Routine 05/10/2020 7:00 AM EST ABO/RH TYPING Routine 05/10/2020 7:00 AM EST ANTIBODY SCREEN Routine 05/10/2020 7:00 AM EST HC ABO-MICROTITER Routine 05/10/2020 7:0 0 AM EST POCT GLUCOSE Routine 05/10/2020 6:21 AM EST FLUOROSCOPY Routine 05/10/2020 6:01 AM EST MICROSCOPE USE Routine 05/10/2020 6:01 AM EST LAMINECTOMY, FACETECTOMY & FORAMINOTOMY,LUMAR, ONE LEVEL Routine 05/10/2020 6:01 AM EST LAMINOTOMY, DECOMPRESSION, FORAMINOTOMY, LUMBAR Routine 05/10/2020 6:01 AM EST documented in this encounter Results * (ABNORMAL) POCT Glucose (05/11/2020 11:28 AM EST) Glucose, POC 205(H) 65 - 199 mg/dL [facility] Comment: Supplemental ranges: <140 mg/dL before meals <180 mg/dL all other times of the day Blood specimen (specimen) 05/11/2020 11:28 AM EST 05/11/2020 11:28 AM EST Joseph Ang MD POINT OF CARE TEST O RDERABLES [facility] [place] [address] * (ABNORMAL) POCT Glucose (05/11/2020 7:18 AM EST) Glucose, POC 222(H) 65 - 199 mg/dL [facility] Comment: Supplemental ranges: <140 mg/dL before meals <180 mg/dL all other times of the day Blood specimen (specimen) 05/11/2020 7:18 AM EST 05/11/2020 7:18 AM EST Joseph Ang MD POINT OF CARE TEST O RDERABG Performing Organization Address [facility] Co de Phone Number [facility] [place] [address] * POCT Glucose (05/10/2020 4:39 PM EST) Glucose, POC 151 65 - 199 mg/dL [facility] Comment: Supplemental ranges: <140 mg/dL before meals <180 mg/dL all other times of the day Blood specimen (specimen) 05/10/2020 4:39 PM EST 05/10/2020 4:39 PM EST Joseph Ang MD POINT OF CARE TEST O DENNYSERABG Performing Organization Address [facility] de Phone Number [facility] [place] [address] * XR Fluoro No Rad <1Hr - OR Use (05/10/2020 12:32 PM EST) Narrative RAD - 05/10/2020 12:33 PM EST This exam is auto-finalizing. No interpretation was done. Joseph Ang MD IMG FLUORO ORDERABLE S Performing Organization Address [facility] de Phone Number [place], [place] * (ABNORMAL) POCT Glucose (05/10/2020 10:47 AM EST) Glucose, POC 221(H) 65 - 199 mg/dL [facility] Comment: Supplemental ranges: <140 mg/dL before meals <180 mg/dL all other times of the day Blood specimen (specimen) 05/10/2020 10:47 AM EST 05/10/2020 10:47 AM EST Joseph Ang MD POINT OF CARE TEST O RDERABG Performing Organization Address [facility] Co de Phone Number [facility] [place] [address] * POCT Glucose (05/10/2020 8:33 AM EST) Pathologist [facility] Glucose, POC 198 65 - 199 mg/dL [facility] Comment: Supplemental ranges: <140 mg/dL before meals <180 mg/dL all other times of the day Blood specimen (specimen) 05/10/2020 8:33 AM EST 05/10/2020 8:33 AM EST Joseph Ang MD POINT OF CARE TEST O RDERABLES [facility] [place] [address] * ABORH Recheck Status (05/10/2020 7:00 AM EST) [facility] ABORH Type Recheck Completed [facility] Blood specimen (specimen) 05/10/2020 7:00 AM EST 05/10/2020 7:13 AM EST Narrative Resulting Agency Comment Spec In Lab Emerald Carlson CRNA BLOOD BANK LAB ORDER IGNACIO [facility] [place] [address] * Antibody screen (05/10/2020 7:00 AM EST) Ab Screen Interp Negative [facility] Expires at 2359 on: 05/13/2020 [facility] Blood specimen (specimen) 05/10/2020 7:00 AM EST 05/10/2020 7:13 AM EST Narrative Resulting Agency Comment Spec In Lab Emerald Carlson CRNA BLOOD BANK LAB ORDER IGNACIO [facility] [place] [address] * ABO/Rh Typing (05/10/2020 7:00 AM EST) Pathologist [facility] ABORH Type AB Pos [facility] Blood specimen (specimen) 05/10/2020 7:00 AM EST 05/10/2020 7:13 AM EST Narrative Resulting Agency Comment Spec In Lab Emerald Carlson CRNA BLOOD BANK LAB ORDER IGNACIO Performing Organization Address [facility] Co de Phone Number [facility] [place] [address] * (ABNORMAL) POCT Glucose (05/10/2020 6:21 AM EST) Glucose, POC 201(H) 65 - 199 mg/dL [facility] Comment: Supplemental ranges: <140 mg/dL before meals <180 mg/dL all other times of the day Blood specimen (specimen) 05/10/2020 6:21 AM EST 05/10/2020 6:21 AM EST Joseph Ang MD POINT OF CARE TEST O RDERABLES Performing Organization Address [facility] Co ma Phone Number [facility] [place] [address] documented in this encounter Visit Diagnoses Diagnosis Herniated lumbar intervertebral disc Displacement of lumbar intervertebral disc without myelopathy documented in this encounter Admitting Diagnoses Diagnosis Herniated lumbar intervertebral disc Displacement of lumbar intervertebral disc without myelopathy documented in this encounter Administered Medications Inactive Administered Medications - up to 3 most recent administrations Medication Order MAR Action Action Date Dose Rate Site acetaminophen (Tylenol) tablet 1,000 mg 1,000 mg, Oral, ONCE, 1 dose, On Thu05/10/20 at 0630, Administer with SIP of H2O only., Day of Surgery (Day of Procedure), Routine Given 05/10/2020 6:49 AM EST 1,000 mg acetaminophen (Tylenol) tablet 650 mg 650 mg, Oral, ONCE, 1 dose, On Laura 05/10/20 at 1530, Do not exceed 4000 mg acetaminophen per day., Routine Given 05/10/2020 4:44 PM EST 650 mg amLODIPine (Norvasc) tablet 2.5 mg 2.5 mg, Oral, DAILY, First dose on Thu05/11/20 at 0900, Until Discontinued, Routine Given 05/11/2020 9:37 AM EST 2.5 mg atorvastatin (Lipitor) tablet 40 mg 40 mg, Oral, EVERY EVENING, First dose on Thu05/10/20 at 1700, Until Discontinued, Routine Given 05/10/2020 4:45 PM EST 40 mg calciTRIoL (Rocaltrol) capsule 0.5 mcg 0.5 mcg, Oral, DAILY, First dose on Thu05/11/20 at 0900, Until Discontinued, Routine Given 05/11/2020 9:38 AM EST 0.5 mcg calcium carbonate (Tums) chewable tablet 500-1,000 mg 500-1,000 mg, Oral, EVERY 4 HOURS PRN, Starting on Thu05/10/20 at 2130, Until Thu05/11/20 at 1546, Heartburn, Give 500 mg (1 tablet) for mild to moderate heartburn. Give 1,000 mg (2 tablets) for severe heartburn., Routine Given 05/10/2020 9:38 PM EST 1,000 mg dextrose 10% infusion 250 mL, at 1,000 mL/hr, Intravenous, EVERY 30 MIN PRN, Starting on Thu05/10/20 at 1131, Until Thu05/11/20 at 1546, For BG 50-70 mg/dL: Oral treatment preferred:?? If able to drink, give 120 mL Juice or Regular (not diet) soda OR If NPO, give 15 gram glucose 40% oral gel massaged into buccal mucosa OR if unconscious or uncooperative, give 25 gram (250 mL) Dextrose 10% IV over 15 minutes per protocol OR, if no IV access, 1 mg Glucagon IM. For BG less than 50 mg/dL: Oral treatment preferred:?? If able to drink, give 240 mL [...] the duration of the active insulin. glucagon (human recombinant) injection SolR 1 mg 1 mg, Intramuscular, EVERY 30 MIN PRN, Starting on Thu05/10/20 at 1131, Until Thu05/11/20 at 1546, Low blood sugar, For BG 50-70 mg/dL: Oral treatment preferred:?? If able to drink, give 120 mL Juice or Regular (not diet) soda OR If NPO, give 15 gram glucose 40% oral gel massaged into buccal mucosa OR if unconscious or uncooperative, give 25 gram (250 mL) Dextrose 10% IV over 15 minutes per protocol OR, if no IV access, 1 mg Glucagon IM. For BG less than 50 mg/dL: Oral treatment preferred:?? If able to drink, give 240 mL [...] duration of the active insulin., Routine glucose (GLUTOSE) 40% oral geL 15-30 g, Buccal, EVERY 30 MIN PRN, Starting on Laura 05/10/20 at 1131, Until Thu05/11/20 at 1546, Low blood sugar, For BG 50-70 mg/dL: Oral treatment preferred:?? If able to drink, give 120 mL Juice or Regular (not diet) soda OR If NPO, give 15 gram glucose 40% oral gel massaged into buccal mucosa OR if unconscious or uncooperative, give 25 gram (250 mL) Dextrose 10% IV over 15 minutes per protocol OR, if no IV access, 1 mg Glucagon IM. For BG less than 50 mg/dL: Oral treatment preferred:?? If able to drink, give 240 mL [...] duration of the active insulin. 1 tube contains 15 grams of glucose (net weight of tube = 37.5 grams., Routine insulin lispro (HumaLOG) VIAL injection 1-6 Units 1-6 Units, Subcutaneous, 3 TIMES DAILY BEFORE MEALS, First dose on Thu05/10/20 at 1200, Until Discontinued, CORRECTION BOLUS [1-6 Units] Moderate Sliding Scale: Correction factor 20 (1 unit of insulin [...] DO NOT hold if NPO, unless specifically told to do so. Per Blood Glucose Monitoring Policy, re-check a BG of > 240 in 2 hours., Routine Given 05/11/2020 12:00 PM EST 4 Units Given 05/11/2020 7:34 AM EST 5 Units Given 05/10/2020 4:46 PM EST 1 Units lactated ringers infusion 1,000 mL, at 100 mL/hr, Intravenous, CONTINUOUS, Starting on Thu05/10/20 at 0630, Until Thu05/10/20 at 1317, Day of Surgery (Day of Procedure) New Bag 05/10/2020 7:05 AM EST 1,000 mLs 100 mL/hr levothyroxine (Synthroid) tablet 137 mcg 137 mcg, Oral, DAILY, First dose on Thu05/11/20 at 0700, Until Discontinued, Routine Given 05/11/2020 6:08 AM EST 137 mcg magnesium citrate oral liquid 300 mL 300 mL, Oral, DAILY PRN, Starting on Thu05/10/20 at 1329, Until Thu05/11/20 at 1546, Constipation, Administer if no bowel movement within 48 hrs to achieve 1) one bowel movement at least every 48 hrs and 2) without straining. If multiple PRN bowel medications ordered, start with polyethylene glycol, then lactulose, then oral bisacodyl, then bisacodyl suppository, then magnesium citrate, then tap water enema. Multiple medications may be given concomitantly for constipation. May repeat times 1 in 4 hours., Routine magnesium citrate oral liquid 300 mL 300 mL, Per G Tube, DAILY PRN, Starting on Laura 05/10/20 at 1329, Until Thu05/11/20 at 1546, Constipation, Administer if no bowel movement within 48 hrs to achieve 1) one bowel movement at least every 48 hrs and 2) without straining. If multiple PRN bowel medications ordered, start with polyethylene glycol, then lactulose, then oral bisacodyl, then bisacodyl suppository, then magnesium citrate, then tap water enema. Multiple medications may be given concomitantly for constipation. May repeat times 1 in 4 hours., Routine methocarbamoL (Robaxin) tablet 500 mg 500 mg, Oral, EVERY 6 HOURS, 8 doses, First dose on Laura 05/10/20 at 1415, Last dose on 05/12/20 at 0815, Routine Given 05/11/2020 7:33 AM EST 500 mg Given 05/11/2020 1:57 AM EST 500 mg Given 05/10/2020 8:56 PM EST 500 mg metoprolol succinate XL (Toprol-XL) tablet 25 mg 25 mg, Oral, DAILY, First dose on Thu05/11/20 at 0900, Until Discontinued, DO NOT CRUSH OR OPEN, Routine Given 05/11/2020 9:38 AM EST 25 mg mycophenolate (Cellcept) capsule 250 mg 250 mg, Oral, 2 TIMES DAILY, First dose on Laura 05/10/20 at 2100, Until Discontinued, DO NOT CRUSH OR OPEN, Routine Given 05/11/2020 9:36 AM EST 250 mg Given 05/10/2020 8:57 PM EST 250 mg ondansetron (ZOFRAN) injection 4-8 mg 4-8 mg, Intravenous, EVERY 8 HOURS PRN, Starting on Laura 05/10/20 at 1329, Until Thu05/11/20 at 1546, Nausea, If multiple antiemetics are ordered, use ondansetron first, prochlorperazine second, and metaclopramide third. Start with 4mg and if ineffective in 30 minutes, give an additional 4mg ondansetron (Zofran) tablet 4-8 mg 4-8 mg, Oral, EVERY 8 HOURS PRN, Starting on Laura 05/10/20 at 1329, Until Thu05/11/20 at 1546, Nausea, Vomiting, If multiple antiemetics are ordered, use ondansetron first, prochlorperazine second, and metaclopramide third. PO Preferred. If patient unable to take PO, may give IV if ordered. Start with 4mg and if ineffective in 45 minutes, give an additional 4mg, Routine oxyCODONE (Roxicodone) tablet 10 mg 10 mg, Oral, EVERY 4 HOURS PRN, Starting on Laura 05/10/20 at 1329, Until Thu05/11/20 at 1546, Pain, severe pain (7-10), Routine oxyCODONE (Roxicodone) tablet 5 mg 5 mg, Oral, EVERY 4 HOURS PRN, Starting on Laura 05/10/20 at 1329, Until Thu05/11/20 at 1546, Pain, moderate pain (4-6), Routine Given 05/11/2020 1:57 AM EST 5 mg Given 05/10/2020 9:50 PM EST 5 mg potassium phosphate (monobasic) (K-Phos) tablet 1,000 mg 1,000 mg, Oral, 2 TIMES DAILY, First dose on Laura 05/10/20 at 1415, Until Discontinued, Dissolve tablets in 6-8 oz of water; for best results, soak tablets in water for 2-5 minutes, then stir and give to patient., Routine Given 05/11/2020 9:36 AM EST 1,000 mg Given 05/10/2020 8:58 PM EST 1,000 mg senna-docusate (Pericolace) 8.6-50 mg per tablet 2 tablet 2 tablet, Oral, 2 TIMES DAILY, First dose on Laura 05/10/20 at 1415, Until Discontinued, Routine Given 05/11/2020 9:37 AM EST 2 tablets Given 05/10/2020 8:56 PM EST 2 tablets Given 05/10/2020 4:45 PM EST 2 tablets sodium chloride 0.9 % (flush) flush 5 mL 5 mL, Intravenous, 2 TIMES DAILY, First dose on Laura 05/10/20 at 1415, Until Discontinued, Recovery (Recovery-Hospital Unit), Routine Given 05/11/2020 9:38 AM EST 5 mLs Given 05/10/2020 9:00 PM EST 5 mLs Given 05/10/2020 4:47 PM EST 5 mLs tacrolimus (Prograf) capsule 1 mg 1 mg, Oral, NIGHTLY, First dose on Laura 05/10/20 at 2100, Until Discontinued, DO NOT SPLIT, CRUSH OR OPEN, Routine Given 05/10/2020 8:57 PM EST 1 mg tacrolimus (Prograf) capsule 2 mg 2 mg, Oral, DAILY, First dose on Thu05/11/20 at 0900, Until Discontinued, DO NOT SPLIT, CRUSH OR OPEN, Routine Given 05/11/2020 9:35 AM EST 2 mg tamsulosin (Flomax) capsule 0.4 mg 0.4 mg, Oral, DAILY, First dose on Laura 05/10/20 at 1415, Until Discontinued, DO NOT CRUSH OR OPEN, Routine Given 05/11/2020 9:36 AM EST 0.4 mg documented in this encounter Active and Recently Administered Medications Times are shown in EST. Scheduled Medication Order 05/09/2020 05/10/2020 05/11/2020 acetaminophen (Tylenol) tablet 1,000 mg (COMPLETED) 1,000 mg, Oral, ONCE, 1 dose, On Laura 05/10/20 at 0630, Administer with SIP of H2O only., Day of Surgery (Day of Procedure), Routine 0649 (Given - Provider: Brandee Taveras RN) acetaminophen (Tylenol) tablet 650 mg (COMPLETED)(Linked Group 1) 650 mg, Oral, ONCE, 1 dose, On Laura 05/10/20 at 1530, Do not exceed 4000 mg acetaminophen per day., Routine 164 (Given - Provider: Duyen Shoemaker RN) amLODIPine (Norvasc) tablet 2.5 mg 2.5 mg, Oral, DAILY, First dose on Thu05/11/20 at 0900, Until Discontinued, Routine 09 (Given - Provid er: Duyen Shoemaker RN) atorvastatin (Lipitor) tablet 40 mg 40 mg, Oral, EVERY EVENING, First dose on Laura 05/10/20 at 1700, Until Discontinued, Routine 164 (Given - Provider: Duyen Shoemaker RN) calciTRIoL (Rocaltrol) capsule 0.5 mcg 0.5 mcg, Oral, DAILY, First dose on Thu05/11/20 at 0900, Until Discontinued, Routine 0938 (Given - Provid er: Duyen Shoemaker RN) ceFAZolin (Ancef) 2 g in dextrose 5% 100 mL infusion (COMPLETED) 2 g, Intravenous, ONCE, 1 dose, On Thu05/10/20 at 0630, Administer over 30 Minutes, To be administered upon arrival to the OR within one hour prior to incision., Day of Surgery (Day of Procedure), Indication for (Active or Suspected): Prophylaxis 744 (Given - Provider: Emerald Carlson CRNA) insulin lispro (HumaLOG) VIAL injection 1-6 Units(Linked Group 2) 1-6 Units, Subcutaneous, 3 TIMES DAILY BEFORE MEALS, First dose on Thu05/10/20 at 1200, Until Discontinued, CORRECTION BOLUS [1-6 Units] Moderate Sliding Scale: Correction factor 20 (1 unit of insulin [...] DO NOT hold if NPO, unless specifically told to do so. Per Blood Glucose Monitoring Policy, re-check a BG of > 240 in 2 hours., Routine 1140 (Given - Provider: Margarette Cornejo RN)1646 (Given - Provider: Duyen Shoemaker RN) 0734 (Given - Provider: Duyen Shoemaker RN)1200 (Given - Provider: Duyen Shoemaker RN) levothyroxine (Synthroid) tablet 137 mcg 137 mcg, Oral, DAILY, First dose on Thu05/11/20 at 0700, Until Discontinued, Routine 0608 (Given - Provid er: Magdalena Hanna RN) methocarbamoL (Robaxin) tablet 500 mg 500 mg, Oral, EVERY 6 HOURS, 8 doses, First dose on Laura 05/10/20 at 1415, Last dose on Thu05/12/20 at 0815, Routine 1644 (Given - Provider: Duyen Shoemaker RN)2055 (Given - Provider: Magdalena Hanna RN) 015 (Given - Provider: Magdalena Hanna RN)0733 (Given - Provider: Duyen Shoemaker RN) metoprolol succinate XL (Toprol-XL) tablet 25 mg 25 mg, Oral, DAILY, First dose on Thu05/11/20 at 0900, Until Discontinued, DO NOT CRUSH OR OPEN, Routine 09 (Given - Provid er: Duyen Shoemaker RN) mycophenolate (Cellcept) capsule 250 mg 250 mg, Oral, 2 TIMES DAILY, First dose on Laura 05/10/20 at 2100, Until Discontinued, DO NOT CRUSH OR OPEN, Routine 2056 (Given - Provider: Magdalena Hanna RN) 0936 (Given - Provider: Duyen Shoemaker RN) potassium phosphate (monobasic) (K-Phos) tablet 1,000 mg 1,000 mg, Oral, 2 TIMES DAILY, First dose on Laura 05/10/20 at 1415, Until Discontinued, Dissolve tablets in 6-8 oz of water; for best results, soak tablets in water for 2-5 minutes, then stir and give to patient., Routine 1415 (Due)2057 (Given - Provider: Magdalena Hanna RN) 0936 (Given - Provider: Duyen Shoemaker RN) senna-docusate (Pericolace) 8.6-50 mg per tablet 2 tablet 2 tablet, Oral, 2 TIMES DAILY, First dose on Laura 05/10/20 at 1415, Until Discontinued, Routine 1644 (Given - Provider: Duyen Shoemaker RN)2055 (Given - Provider: Magdalena Hanna RN) 0937 (Given - Provider: Duyen Shoemaker RN) sodium chloride 0.9 % (flush) flush 5 mL 5 mL, Intravenous, 2 TIMES DAILY, First dose on Laura 05/10/20 at 1415, Until Discontinued, Recovery (Recovery-Hospital Unit), Routine 1646 (Given - Provider: Duyen Shoemaker RN)2100 (Given - Provider: Magdalena Hanna RN) 0938 (Given - Provider: Duyen Shoemaker RN) tacrolimus (Prograf) capsule 1 mg(Linked Group 3) 1 mg, Oral, NIGHTLY, First dose on Laura 05/10/20 at 2100, Until Discontinued, DO NOT SPLIT, CRUSH OR OPEN, Routine 2056 (Given - Provider: Magdalena Hanna RN) tacrolimus (Prograf) capsule 2 mg(Linked Group 3) 2 mg, Oral, DAILY, First dose on Thu05/11/20 at 0900, Until Discontinued, DO NOT SPLIT, CRUSH OR OPEN, Routine 0935 (Given - Provid er: Duyen Shoemaker RN) tamsulosin (Flomax) capsule 0.4 mg 0.4 mg, Oral, DAILY, First dose on Laura 05/10/20 at 1415, Until Discontinued, DO NOT CRUSH OR OPEN, Routine 1415 (Due) 0936 (Given - Provider: Duyen Shoemaker RN) Continuous Medication Order 05/09/2020 05/10/2020 05/11/2020 lactated ringers infusion (CANCELED) 1,000 mL, at 100 mL/hr, Intravenous, CONTINUOUS, Starting on Laura 05/10/20 at 0630, Until Laura 05/10/20 at 1317, Day of Surgery (Day of Procedure) 0705 (New Bag - Provider: Brandee Taveras RN)0928 (Anesthesia Volume Adjustment - Provider: Emerald Carlson CRNA)1019 (Stopped - Provider: Xochitl Pitts) PRN Medication Order 05/09/2020 05/10/2020 05/11/2020 bisacodyL (Dulcolax) suppository 10 mg 10 mg, Rectal, DAILY PRN, Starting on Laura 05/10/20 at 1329, Until Thu05/11/20 at 1546, Constipation, Administer if needed per patient's routine or if no bowel movement within 48 hours to achieve: (1) One bowel movement every 48 hours, AND (2) Without straining. If multiple PRN bowel medications ordered, start with magnesium hydroxide, then bisacodyl. Multiple medications may be given concomitantly for constipation., Routine BUpivacaine (PF) (MARCAINE) 0.25 % (2.5 mg/mL) injection (CANCELED) ONCE PRN, Starting on Laura 05/10/20 at 0823, Until Thu05/11/20 at 1546, Intra-Operative (Intra-Procedure), Routine 822 (Given - Provider: Bobby Raygoza MD - Comment: Mixed 1:1 with Exparel) BUpivacaine liposome (PF) (EXPAREL) 1.3 % (13.3 mg/mL) injection for infiltration (CANCELED) ONCE PRN, Starting on Laura 05/10/20 at 0823, Until Thu05/11/20 at 1546, Intra-Operative (Intra-Procedure) 822 (Given - Provider: Bobby Raygoza MD) calcium carbonate (Tums) chewable tablet 500-1,000 mg 500-1,000 mg, Oral, EVERY 4 HOURS PRN, Starting on Laura 05/10/20 at 2130, Until Thu05/11/20 at 1546, Heartburn, Give 500 mg (1 tablet) for mild to moderate heartburn. Give 1,000 mg (2 tablets) for severe heartburn., Routine 2137 (Given - Provider: Magdalena Hanna RN) dextrose 10% infusion(Linked Group 4) 250 mL, at 1,000 mL/hr, Intravenous, EVERY 30 MIN PRN, Starting on Laura 05/10/20 at 1131, Until Thu05/11/20 at 1546, For BG 50-70 mg/dL: Oral treatment preferred:?? If able to drink, give 120 mL Juice or Regular (not diet) soda OR If NPO, give 15 gram glucose 40% oral gel massaged into buccal mucosa OR if unconscious or uncooperative, give 25 gram (250 mL) Dextrose 10% IV over 15 minutes per protocol OR, if no IV access, 1 mg Glucagon IM. For BG less than 50 mg/dL: Oral treatment preferred:?? If able to drink, give 240 mL [...] for the duration of the active insulin. gelatin adsorbable (GELFOAM) sponge (CANCELED) ONCE PRN, Starting on Laura 05/10/20 at 0823, Until Thu05/11/20 at 1546, Intra-Operative (Intra-Procedure) 0823 (Given - Provider: Bobby Raygoza MD) glucagon (human recombinant) injection SolR 1 mg(Linked Group 4) 1 mg, Intramuscular, EVERY 30 MIN PRN, Starting on Laura 05/10/20 at 1131, Until Thu05/11/20 at 1546, Low blood sugar, For BG 50-70 mg/dL: Oral treatment preferred:?? If able to drink, give 120 mL Juice or Regular (not diet) soda OR If NPO, give 15 gram glucose 40% oral gel massaged into buccal mucosa OR if unconscious or uncooperative, give 25 gram (250 mL) Dextrose 10% IV over 15 minutes per protocol OR, if no IV access, 1 mg Glucagon IM. For BG less than 50 mg/dL: Oral treatment preferred:?? If able to drink, give 240 mL [...] duration of the active insulin., Routine glucose (GLUTOSE) 40% oral geL(Linked Group 4) 15-30 g, Buccal, EVERY 30 MIN PRN, Starting on Laura 05/10/20 at 1131, Until Thu05/11/20 at 1546, Low blood sugar, For BG 50-70 mg/dL: Oral treatment preferred:?? If able to drink, give 120 mL Juice or Regular (not diet) soda OR If NPO, give 15 gram glucose 40% oral gel massaged into buccal mucosa OR if unconscious or uncooperative, give 25 gram (250 mL) Dextrose 10% IV over 15 minutes per protocol OR, if no IV access, 1 mg Glucagon IM. For BG less than 50 mg/dL: Oral treatment preferred:?? If able to drink, give 240 mL [...] duration of the active insulin. 1 tube contains 15 grams of glucose (net weight of tube = 37.5 grams., Routine labetaloL (Normodyne,Trandate) injection 10-20 mg 10-20 mg, Intravenous, EVERY 1 HOUR PRN, Starting on Laura 05/10/20 at 1329, Until Thu05/11/20 at 1546, High Blood Pressure, Target systolic blood pressure (SBP) less than 160 mmHg. Administer 10 mg over 2 minutes. May repeat every 15 minutes if SBP remains above goal. If inadequate effect with second 10 mg dose then increase dose to 20 mg for subsequent dosing every 15 minutes. Dose not to exceed 300 mg per day. Hold if pulse is less than 50 beats per minute., Routine lidocaine ((GLYDO)) 2 % gel 11 mL 11 mL, INTRA-URETHRAL, DAILY PRN, Starting on Laura 05/10/20 at 1329, Until Thu05/11/20 at 1546, straight cath, Routine lidocaine (XYLOCAINE) 10 mg/mL (1 %) injection 3 mg 3 mg (0.3 mL), Subcutaneous, ONCE PRN, 1 dose, Starting on Laura 05/10/20 at 1329, Until Thu05/11/20 at 1546, for discomfort with PIV insertion, Recovery (Recovery-Hospital Unit), Routine magnesium citrate oral liquid 300 mL(Linked Group 5) 300 mL, Oral, DAILY PRN, Starting on Laura 05/10/20 at 1329, Until Thu05/11/20 at 1546, Constipation, Administer if no bowel movement within 48 hrs to achieve 1) one bowel movement at least every 48 hrs and 2) without straining. If multiple PRN bowel medications ordered, start with polyethylene glycol, then lactulose, then oral bisacodyl, then bisacodyl suppository, then magnesium citrate, then tap water enema. Multiple medications may be given concomitantly for constipation. May repeat times 1 in 4 hours., Routine magnesium citrate oral liquid 300 mL(Linked Group 5) 300 mL, Per G Tube, DAILY PRN, Starting on Laura 05/10/20 at 1329, Until Thu05/11/20 at 1546, Constipation, Administer if no bowel movement within 48 hrs to achieve 1) one bowel movement at least every 48 hrs and 2) without straining. If multiple PRN bowel medications ordered, start with polyethylene glycol, then lactulose, then oral bisacodyl, then bisacodyl suppository, then magnesium citrate, then tap water enema. Multiple medications may be given concomitantly for constipation. May repeat times 1 in 4 hours., Routine magnesium hydroxide (Milk of Magnesia) (240 mg/mL) oral liquid 10 mL 10 mL, Oral, DAILY PRN, Starting on Laura 05/10/20 at 1329, Until Thu05/11/20 at 1546, Constipation, Administer if needed per patient's routine or if no bowel movement within 48 hours to achieve: (1) One bowel movement every 48 hours, AND (2) Without straining. If multiple PRN bowel medications ordered, start with magnesium hydroxide, then bisacodyl. Multiple medications may be given concomitantly for constipation., Routine methylPREDNISolone sodium succinate (PF) (SOLU-Medrol) injection (CANCELED) ONCE PRN, Starting on Laura 05/10/20 at 0929, Until Thu05/11/20 at 1546, Intra-Operative (Intra-Procedure), Routine 09 (Given - Provider: Joseph Ang MD - Comment: Epidural) morphine 2 mg/mL injection syringe 1 mg 1 mg, Intravenous, EVERY 3 HOURS PRN, Starting on Laura 05/10/20 at 1329, Until Thu05/11/20 at 1328, Pain, Give only if patient is awake/alert., Routine ondansetron (ZOFRAN) injection 4-8 mg(Linked Group 6) 4-8 mg, Intravenous, EVERY 8 HOURS PRN, Starting on Laura 05/10/20 at 1329, Until Thu05/11/20 at 1546, Nausea, If multiple antiemetics are ordered, use ondansetron first, prochlorperazine second, and metaclopramide third. Start with 4mg and if ineffective in 30 minutes, give an additional 4mg ondansetron (Zofran) tablet 4-8 mg(Linked Group 6) 4-8 mg, Oral, EVERY 8 HOURS PRN, Starting on Laura 05/10/20 at 1329, Until Thu05/11/20 at 1546, Nausea, Vomiting, If multiple antiemetics are ordered, use ondansetron first, prochlorperazine second, and metaclopramide third. PO Preferred. If patient unable to take PO, may give IV if ordered. Start with 4mg and if ineffective in 45 minutes, give an additional 4mg, Routine oxyCODONE (Roxicodone) tablet 10 mg(Linked Group 7) 10 mg, Oral, EVERY 4 HOURS PRN, Starting on Laura 05/10/20 at 1329, Until Thu05/11/20 at 1546, Pain, severe pain (7-10), Routine 2150 (See Alternative - Provider: Rubén Restrepo RN) 0157 (See Alternative - Provider: Magdalena Hanna, JADEN) oxyCODONE (Roxicodone) tablet 5 mg(Linked Group 7) 5 mg, Oral, EVERY 4 HOURS PRN, Starting on Laura 05/10/20 at 1329, Until Thu05/11/20 at 1546, Pain, moderate pain (4-6), Routine 2150 (Given - Provider: Rubén Restrepo RN) 0157 (Given - Provider: Magdalena Hanna, JADEN) polyethylene glycoL (Miralax) packet 17 g 17 g, Oral, DAILY PRN, Starting on Laura 05/10/20 at 1329, Until Thu05/11/20 at 1546, Constipation, Administer if no bowel movement within 48 hours to achieve: (1) One bowel movement at least every 48 hours, AND (2) without straining. If multiple PRN bowel medications ordered, start with polyethylene glycol, then lactulose, then oral bisacodyl, then bisacodyl suppository, then magnesium citrate, then tap water enema. Multiple medications may be given concomitantly for constipation., Routine sodium chloride 0.9 % (flush) flush 5-20 mL 5-20 mL, Intravenous, EVERY 1 MIN PRN, Starting on Thu05/10/20 at 1329, Until Thu05/11/20 at 1546, flush, Flush pertains to all indwelling lines. Flush per protocol found in the job aid using the link provided on this medication record., Recovery (Recovery-Hospital Unit), Routine thrombin (Bovine) (THROMBINAR) kit (CANCELED) ONCE PRN, Starting on Thu05/10/20 at 0823, Until Thu05/11/20 at 1546, Intra-Operative (Intra-Procedure) 0823 (Given - Provider: Bobby Raygoza MD) Linked Groups Order Group 1: acetaminophen (Tylenol) (32.02 mg/mL) oral liquid 650 mg (COMPLETED) 650 mg, Oral, ONCE, 1 dose, On Thu05/10/20 at 1530, Maximum dose of acetaminophen is 90 mg/kg (up to 4000 mg maximum) from all sources in 24 hours. When ordered for pain, acetaminophen should be given even when other ordered pain medications are indicated., Routine Or acetaminophen (Tylenol) tablet 650 mg (COMPLETED)Jump to med 650 mg, Oral, ONCE, 1 dose, On Thu05/10/20 at 1530, Do not exceed 4000 mg acetaminophen per day., Routine Or acetaminophen (Tylenol) suppository 650 mg (COMPLETED) 650 mg, Rectal, ONCE, 1 dose, On Thu05/10/20 at 1530, Give per rectum (SC) if unable to take PO. Do not exceed 4000 mg acetaminophen per day., Routine Group 2: POCT Fingerstick Glucose (CANCELED) Routine, 4 TIMES DAILY BEFORE MEALS & AT BEDTIME, First occurrence on Thu05/10/20 at 1700, Until Specified, Consider choosing FOUR TIMES A DAY BEFORE MEALS AND AT BEDTIME as frequency for: Patients who have a good hypoglycemia awareness: -Patients who are eating meals during the day and sleeping at night -Patient who are otherwise stable And insulin lispro (HumaLOG) VIAL injection 1-6 UnitsJump to med 1-6 Units, Subcutaneous, 3 TIMES DAILY BEFORE MEALS, First dose on Thu05/10/20 at 1200, Until Discontinued, CORRECTION BOLUS [1-6 Units] Moderate Sliding Scale: Correction factor 20 (1 unit of insulin [...] DO NOT hold if NPO, unless specifically told to do so. Per Blood Glucose Monitoring Policy, re-check a BG of > 240 in 2 hours., Routine Group 3: tacrolimus (Prograf) capsule 2 mgJump to med 2 mg, Oral, DAILY, First dose on Thu05/11/20 at 0900, Until Discontinued, DO NOT SPLIT, CRUSH OR OPEN, Routine And tacrolimus (Prograf) capsule 1 mgJump to med 1 mg, Oral, NIGHTLY, First dose on Thu05/10/20 at 2100, Until Discontinued, DO NOT SPLIT, CRUSH OR OPEN, Routine Group 4: glucose (GLUTOSE) 40% oral geLJump to med 15-30 g, Buccal, EVERY 30 MIN PRN, Starting on Thu05/10/20 at 1131, Until Thu05/11/20 at 1546, Low blood sugar, For BG 50-70 mg/dL: Oral treatment preferred:?? If able to drink, give 120 mL Juice or Regular (not diet) soda OR If NPO, give 15 gram glucose 40% oral gel massaged into buccal mucosa OR if unconscious or uncooperative, give 25 gram (250 mL) Dextrose 10% IV over 15 minutes per protocol OR, if no IV access, 1 mg Glucagon IM. For BG less than 50 mg/dL: Oral treatment preferred:?? If able to drink, give 240 mL [...] duration of the active insulin. 1 tube contains 15 grams of glucose (net weight of tube = 37.5 grams., Routine Or dextrose 10% infusionJump to med 250 mL, at 1,000 mL/hr, Intravenous, EVERY 30 MIN PRN, Starting on Laura 05/10/20 at 1131, Until Thu05/11/20 at 1546, For BG 50-70 mg/dL: Oral treatment preferred:?? If able to drink, give 120 mL Juice or Regular (not diet) soda OR If NPO, give 15 gram glucose 40% oral gel massaged into buccal mucosa OR if unconscious or uncooperative, give 25 gram (250 mL) Dextrose 10% IV over 15 minutes per protocol OR, if no IV access, 1 mg Glucagon IM. For BG less than 50 mg/dL: Oral treatment preferred:?? If able to drink, give 240 mL [...] duration of the active insulin. Or glucagon (human recombinant) injection SolR 1 mgJump to med 1 mg, Intramuscular, EVERY 30 MIN PRN, Starting on Laura 05/10/20 at 1131, Until Thu05/11/20 at 1546, Low blood sugar, For BG 50-70 mg/dL: Oral treatment preferred:?? If able to drink, give 120 mL Juice or Regular (not diet) soda OR If NPO, give 15 gram glucose 40% oral gel massaged into buccal mucosa OR if unconscious or uncooperative, give 25 gram (250 mL) Dextrose 10% IV over 15 minutes per protocol OR, if no IV access, 1 mg Glucagon IM. For BG less than 50 mg/dL: Oral treatment preferred:?? If able to drink, give 240 mL [...] duration of the active insulin., Routine Group 5: magnesium citrate oral liquid 300 mLJump to med 300 mL, Oral, DAILY PRN, Starting on Laura 05/10/20 at 1329, Until Thu05/11/20 at 1546, Constipation, Administer if no bowel movement within 48 hrs to achieve 1) one bowel movement at least every 48 hrs and 2) without straining. If multiple PRN bowel medications ordered, start with polyethylene glycol, then lactulose, then oral bisacodyl, then bisacodyl suppository, then magnesium citrate, then tap water enema. Multiple medications may be given concomitantly for constipation. May repeat times 1 in 4 hours., Routine Or magnesium citrate oral liquid 300 mLJump to med 300 mL, Per G Tube, DAILY PRN, Starting on Laura 05/10/20 at 1329, Until Thu05/11/20 at 1546, Constipation, Administer if no bowel movement within 48 hrs to achieve 1) one bowel movement at least every 48 hrs and 2) without straining. If multiple PRN bowel medications ordered, start with polyethylene glycol, then lactulose, then oral bisacodyl, then bisacodyl suppository, then magnesium citrate, then tap water enema. Multiple medications may be given concomitantly for constipation. May repeat times 1 in 4 hours., Routine Group 6: ondansetron (Zofran) tablet 4-8 mgJump to med 4-8 mg, Oral, EVERY 8 HOURS PRN, Starting on Laura 05/10/20 at 1329, Until Thu05/11/20 at 1546, Nausea, Vomiting, If multiple antiemetics are ordered, use ondansetron first, prochlorperazine second, and metaclopramide third. PO Preferred. If patient unable to take PO, may give IV if ordered. Start with 4mg and if ineffective in 45 minutes, give an additional 4mg, Routine Or ondansetron (ZOFRAN) injection 4-8 mgJump to med 4-8 mg, Intravenous, EVERY 8 HOURS PRN, Starting on Laura 05/10/20 at 1329, Until Thu05/11/20 at 1546, Nausea, If multiple antiemetics are ordered, use ondansetron first, prochlorperazine second, and metaclopramide third. Start with 4mg and if ineffective in 30 minutes, give an additional 4mg Group 7: oxyCODONE (Roxicodone) tablet 5 mgJump to med 5 mg, Oral, EVERY 4 HOURS PRN, Starting on Laura 05/10/20 at 1329, Until Thu05/11/20 at 1546, Pain, moderate pain (4-6), Routine Or oxyCODONE (Roxicodone) tablet 10 mgJump to med 10 mg, Oral, EVERY 4 HOURS PRN, Starting on Laura 05/10/20 at 1329, Until Thu05/11/20 at 1546, Pain, severe pain (7-10), Routine documented in this encounter Care Teams Senior Microsoft Net Developer Relationship Specialty Start Date End Date Urbano Denis DO [address] [place] [address] [address] [place] [address] PCP - General 09/03/12 03/17/22 Ruchi Valles RN Nurse Clinic Transplant Surgery 07/30/15 documented as of this encounter
--- OUTSIDE RECORDS SUMMARY | 2024-02-14 11:20 | XMS_ITS | Encounter Summary ---
[place] [address] Care Team Providers Care Bench Mechanic Name Role Phone Urbano Denis DO Primary Care Provider Encounter Details Date Type Department Care Team (Late st Contact Info) Description 2020 Telephone [place] [phone] Anabella Bright Social History Tobacco Use Types [...] encounter Miscellaneous Notes * Telephone Encounter - Anabella Bright - 2020 12:14 PM EST ----- Message from Mara Kimble sent at 2020 9:55 AM EST ----- Contact: [facility] not covered by their insurance. [facility] was supposed to get in touch with us. Need yearly lab slip please. Above message noted. See prior note- PA was submitted and denied, excluded from coverage under Medicare law. Returned call to patient's , went to identified . Left detailed message advising of this information. documented in this encounter Plan of Treatment Upcoming Encounters Date Type Department Care Team (Late st Contact Info) Description 04/15/2024 10:00 AM EDT Hospital Encounter Non-Invasive [place] [address] Arrived documented as of this encounter Goals [...] on filedocumented in this encounter Care Teams Bench Mechanic Relationship Specialty Start Date End Date Urbano Denis DO [address] [place] [address] PCP - General 09/03/12 03/17/22 Ruchi Valles RN Nurse Clinic Transplant Surgery 07/30/15 documented as of this encounter
--- OUTSIDE RECORDS SUMMARY | 2024-02-14 11:20 | XMS_ITS | Encounter Summary ---
Author Organization [facility] [place] [address] Care Team Providers Care Online Affiliate Marketing Manager Name Role Phone Urbano Denis DO Primary Care Provider [phone] Encounter Details Date Type Department Care Team (Latest Contact Info) Description 06/15/2020 9:00 AM EST TH Visit (TeleHealth) [place] [address] Karie Reid, END MATCHER [facility] [place] [place] [address] Herniated lumbar intervertebral disc Social History Tobacco Use Types Packs/Day Years [...] as of this encounter Progress Notes * Karie Reid APRN - 06/15/2020 9:00 AM EST Name: Cody Bolden : 1950 PCP: Urbano Denis DO REF: Urbano Denis Date of Service: 06/15/2020 Telephone Office Visit Post op follow up s/p Left L45 discectomy/decompression.?? HISTORY OF PRESENT ILLNESS I called ??Yuan??today, a 69 y.o. who underwent a L4-5 discectomy/decompression with Dr. Ang on 05/10/20 for L4-L5 disc bulge eccentric to left causing neuroforaminal stenosis. Preoperativelyhe experienced bilateral leg pain that radiated down buttocks and posterior thighs to knee level. He reports doing well since surgery. His incision has healed well. Absorbable sutures were used. He used oxycodone for only a couple days and since then has taken only occasional tylenol. He reports that he is no longer dragging his feet. His leg pain was gone since after surgery. He has been feelinglike the bionic man since then. He denies leg numbness, weakness, bowel or bladder dysfunction. ?? PAST MEDICAL HISTORY Patient Active Problem List Diagnosis Code ??? [...] hepatitis) K73.2 ??? Prophylactic immunotherapy Z29.8 ??? half-way current use of 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 drug Z79.899 ??? Vitamin D deficiency E55.9 ??? Debility R53.81 ??? Pain of right lower extremity M79.604 ??? Obesity (BMI 30.0-34.9) E66.9 ??? Hydronephrosis N13.30 ??? Atrial fibrillation with RVR - had flutter initially, then fib I48.91 ??? Left leg pain M79.605 ??? CAD (coronary artery disease) I25.10 ??? Herniated lumbar intervertebral disc M51.26 Past Medical History: Diagnosis Date ??? RAY [...] 2 diabetes mellitus ??? Weight increase 08/12/2016 ALLERGIES No Known Allergies MEDICATIONS Current Outpatient Medications: ??? senna-docusate (Pericolace) 8.6-50 mg Tablet, Take 2 tablets by mouth 2 times daily as needed for Constipation., Disp: 60 tablet, Rfl: 0 ??? oxyCODONE (Roxicodone) 5 mg Tablet, Take 1 tablet by mouth every 4 hours as needed for Pain (moderate pain (4-6))., Disp: 20 tablet, Rfl: 0 ??? calciTRIoL (Rocaltrol) 0.5 mcg Capsule, TAKE [...] by mouth daily., Disp: , Rfl: ??? mycophenolate (Cellcept) 250 mg Capsule, Take 1 capsule by mouth 2 times daily. Kidney Transplant 09/16/2015 Dx code Z94.0, Disp: 180 capsule, Rfl: 3 ??? tacrolimus (Prograf) 1 mg Capsule, TAKE TWO CAPSULES BY MOUTH EVERY MORNING, TAKE ONE CAPSULE BY MOUTH NIGHTLY . Kidney Transplant 09/16/2015 dx code Z94.0, Disp: 270 capsule, Rfl: 3 ??? metoprolol succinate XL (Toprol-XL) 25 mg Tablet Sustained Release 24 hr, Take 1 tablet by mouth daily., Disp: 90 tablet, Rfl: 3 ??? nitroGLYcerin (NITROSTAT) 0.4 mg Tablet, Sublingual, [...] times daily., Disp: 30 tablet, Rfl: 3 REVIEW OF SYSTEMS General: Denies recent fever, chills, or weight changes. Eyes: Denies recent changes in vision. ENT: Denies recent changes in hearing or dysphagia. Cardiovascular: Denies CP, palpitations, or irregular heart beat. Respiratory: Denies SOB, cough, or recent respiratory infections. GI: Denies N/V/D/C or change in appetite. : Denies changes in urination; frequency, urgency or burning. Musculoskeletal: Denies weakness, numbness, or tingling in extremities. Heme: Denies recent or history of bleeding or clotting disorder. Neuro: Denies recent changes in mentation, memory, or behavior. ASSESSMENT & PLAN Mr.??Yuan??is 69 y.o. who underwent a L4-5 discectomy/decompression with Dr. Ang on 05/10/20 for L4-L5 disc bulge eccentric to left causing neuroforaminal stenosis. He is doing well since surgery and feels like it was a success. Incision well healed with absorbable sutures. He denies numbness,tingling, weakness. No longer dragging my feet He has stopped using pain medications and ambulating without difficulty. I recommended a follow up lumbar flexion/extension/AP xray. He would like to do it before insurancechanges at the end of June. This can be done at [facility]. Plan: Follow up lumbar, flex and AP films at [facility] before 07/2020 then PRN. Patient verbally consents to this telephone visit and understands that this visit may be billed, similar to a clinic office visit. I provided care to the patient today via telephone call. The total time associated with this visit was 20 minutes. Karie Reid APRN Department of Neurosurgery documented in this encounter Plan of Treatment Upcoming Encounters Date Type Department Care Team (Late st Contact Info) Description 04/15/2024 10:00 AM EDT Hospital Encounter Non-[place] [address] Arrived documented as of this encounter Goals Goal Patient Goal Type Associated Problems Recent Progress Patient-Stated? Author [facility] Home Medication Compliance and Understanding Patient Facing Action Plan On track( 017 10:41 AM EDT) Selena Scott, [facility] Note: Patient Goal: Clear hepatitis C Timeframe to meet goal: within 12 weeks of therapy documented as of this encounter Visit Diagnoses Diagnosis Herniated lumbar intervertebral disc Displacement of lumbar intervertebral disc without myelopathy documented in this encounter Care Teams Online Affiliate Marketing Manager Relationship Specialty Start Date End Date Urbano Denis DO [facility] [address] [place] [address] PCP - General 09/03/12 03/17/22 Ruchi Valles RN Nurse Clinic Transplant Surgery 07/30/15 documented as of this encounter
--- OUTSIDE RECORDS SUMMARY | 2024-02-14 11:20 | XMS_ITS | Encounter Summary ---
Author Organization [facility] [place] [address] Care Team Providers Care Social Media Assistant Name Role Phone AdeelUrbano toscano Primary Care Provider [phone] Reason for Visit * Reason Onset Date Comments Medication Refill 07/26/2020 Encounter Details Date Type Department Care Team (Late st Contact Info) Description 07/26/2020 Refill Cardiology at [address] [address] Byron Brown MD [facility] [place] [address] Medication Refill Social History Tobacco Use Types [...] AM EDT Hospital Encounter Non[place] [phone] Arrived documented as of this encounter Goals Goal Patient Goal Type Associated Problems Recent Progress Patient-Stated? Author [facility] Medication Compliance and Understanding Patient Facing Action Plan On track( 017 10:41 AM EDT) Selena Scott, [facility] Note: Patient Goal: Clear hepatitis C Timeframe to meet goal: within 12 weeks of therapy documented as of this encounter Visit Diagnoses Diagnosis Atrial fibrillation with RVR - had flutter initially, then fib- Primary Atrial fibrillation documented in this encounter Care Teams Social Media Assistant Relationship Specialty Start Date End Date Urbano Denis DO [address] [place] [address] [address] [facility] [address] [place] [address] PCP - General 09/03/12 03/17/22 Ruchi Valles RN Nurse Clinic Transplant Surgery 07/30/15 documented as of this encounter
--- OUTSIDE RECORDS SUMMARY | 2024-02-14 11:20 | XMS_ITS | Encounter Summary ---
Author Organization [facility] [place] [address] Care Team Providers Care Manufacturing Area Manager Name Role Phone Adeel Urbano KIRBY Primary Care Provider [phone] Encounter Details Date Type Department Care Team (Late st Contact Info) Description 06/15/2020 Telephone [place] [phone] Sonia Alcantar Social History Tobacco Use Types [...] Miscellaneous Notes * Telephone Encounter - Lori Mark - 06/19/2020 4:11 PM EST Faxed new order to [facility], schedule TOV with [facility] once complete * Telephone Encounter - Nancy Iqbal - 06/15/2020 3:28 PM EST RN, MISSA[facility] Rad calling to request orders for total spine per radiologist's request. Missy Cruz * Telephone Encounter - Sonia Alcantar - 06/15/2020 1:04 PM EST Faxed order to [facility] When complete schedule TOV w [facility] / send results to [facility] ~~~~~~~~~~~~~~~~~~~~~~~~~~~~~~~~~~~~~~~~~~~~~~~~~~~~~ Karie Reid APRN Sent: ThuJune 15, 2020 12:15 PM To: P [facility] ?? Follow-up and Dispositions Check-out Note: Follow up lumbar flexion/extension/AP xray. He would like to do it before insurancechanges at the end of June. This can be done at [facility]. Plan: Follow up lumbar, flex and AP films at [facility] before 07/2020 ??then PRN. documented in this encounter Plan of Treatment Upcoming Encounters Date Type Department Care Team (Late st Contact Info) Description 04/15/2024 10:00 AM EDT Hospital Encounter [place] [phone] Arrived documented as of this encounter Goals Goal Patient Goal Type Associated Problems Recent Progress Patient-Stated? Author [facility] Medication Compliance and Understanding Patient Facing Action Plan On track( 017 10:41 AM EDT) Selena Scott, [facility] Note: Patient Goal: Clear hepatitis C Timeframe to meet goal: within 12 weeks of therapy documented as of this encounter Visit Diagnoses Not on filedocumented in this encounter Care Teams Manufacturing Area Manager Relationship Specialty Start Date End Date Urbano Denis DO [address] [place] [address] [address] [place] [address] PCP - General 09/03/12 03/17/22 Hai STANLEY,Ruchi Nurse Clinic Transplant Surgery 07/30/15 documented as of this encounter
--- OUTSIDE RECORDS SUMMARY | 2024-02-14 11:20 | XMS_ITS | Encounter Summary ---
[place] [address] Care Team Providers Care Textile Machine Operator Name Role Phone Urbano Denis DO Primary Care Provider [phone] Encounter Details Date Type Department Care Team (Late st Contact Info) Description 05/09/2020 [place] [phone] Devi Preciado Social History Tobacco Use Types [...] AM EDT Hospital Encounter Non[place] [phone] Arrived documented as of this encounter Goals Goal Patient Goal Type Associated Problems Recent Progress Patient-Stated? Author [facility] Medication Compliance and Understanding Patient Facing Action Plan On track( 017 10:41 AM EDT) No Selena Cisneros, [facility] Note: Patient Goal: Clear hepatitis C Timeframe to meet goal: within 12 weeks of therapy documented as of this encounter Visit Diagnoses Not on filedocumented in this encounter Care Teams Textile Machine Operator Relationship Specialty Start Date End Date Urbano Denis DO [address] [place], [place] [address]Y [facility] [address] [place] [address] PCP - General 09/03/12 03/17/22 Ruchi Valles RN Nurse Clinic Transplant Surgery 07/30/15 documented as of this encounter
--- OUTSIDE RECORDS SUMMARY | 2024-02-14 11:20 | XMS_ITS | Encounter Summary ---
[place] [address] Care Team Providers Care Depilatory Painter Name Role Phone Urbano Denis DO Primary Care Provider [phone] Encounter Details Date Type Department Care Team (Late st Contact Info) Description 04/11/2020 2:00 PM EDT Clinical [place] [phone] Social History Tobacco Use Types Packs/Day Years Used Date Smoking Tobacco: Some Days Cigarettes Last attempted to quit: 01/02/1985 Cigars Smokeless Tobacco: Never Tobacco Cessation:Ready to Q uit: Yes Comments:cigars, one weekly Alcohol Use Standard Drinks/Week Comments No 0 (1 standard drink = 0.6 oz pur e alcohol) Sex and Gender Information Value Date Recorded Sex Assigned at Not on file Gender Identity Not on file Sexual Orientation Not on file documented as of this encounter Last Filed Vital Signs Vital Sign Reading Time Taken Comments Blood Pressure - - Pulse - - Temperature - - Respiratory Rate - - Oxygen Saturation - - Inhaled Oxygen Concentration - - Weight 103.2 kg (227 lb 9.6 oz) 04/11/2020 1:59 PM EDT Height 180.3 cm (5' 11) 04/11/2020 1:59 PM EDT Body Mass Index 31.74 04/11/2020 1:59 PM EDT documented in this encounter Progress Notes * Santosh Oden, RN - 04/11/2020 2:00 PM EDT PAT questionnaire reviewed with patient while in Pre Admission testing. Pre-operative instruction booklet reviewed. Patient verbalizes a good understanding of all information reviewed. PLAN: Testing: Labs, and anesthesia consult ekg not performed as surgeon reviewed pt recent ekg 02/17/20 that is scanned in chart Special medication instructions: None Procedure date: Not booked Surgeon is Dr. Ang +patient stated in PAT that he made mistake in answering he is unsafe/threatened at home in questionaire. Patient states he is completely safe and not threatened/abused in any respect. documented in this encounter Plan of Treatment Upcoming Encounters Date Type Department Care Team (Late st Contact Info) Description 04/15/2024 10:00 AM EDT Hospital Encounter Non-Invasive [place] [address] Arrived documented as of this encounter Goals Goal Patient Goal Type Associated Problems Recent Progress Patient-Stated? Author DH Home Medication Compliance and Understanding Patient Facing Action Plan On track( 017 10:41 AM EDT) Selena Scott, [facility] Note: Patient Goal: Clear hepatitis C Timeframe to meet goal: within 12 weeks of therapy documented as of this encounter Visit Diagnoses Not on filedocumented in this encounter Care Teams Depilatory Painter Relationship Specialty Start Date End Date Urbano Denis DO [address] [place] [address] PCP - General 09/03/12 03/17/22 Ruchi Valles RN Nurse Clinic Transplant Surgery 07/30/15 documented as of this encounter
--- OUTSIDE RECORDS SUMMARY | 2024-02-14 11:20 | XMS_ITS | Encounter Summary ---
Author Organization [facility] [place] [address] Care Team Providers Care Shovel Log Loader Operator Name Role Phone Adeel Urbano KIRBY Primary Care Provider Encounter Details Date Type Department Care Team (Late st Contact Info) Description 05/08/2020 Telephone [place] [phone] Nancy Iqbal Social History Tobacco Use Types Packs/Day Years [...] Telephone Encounter - Layla Pond RN - 05/08/2020 9:02 AM EST I spoke with Mara again and reviewed Yash's medications to be stopped pre-op. He is to continue theASA 81 mg and stop the Eliquis 2 days pre-op (today) per cardiology notes. I let her know the SDP RN will call tomorrow afternoon and give instructions for the morning of surgery. * Telephone Encounter - Nancy Iqbal - 05/08/2020 8:44 AM EST Caller: Family member If not the patient: Name of caller: Mara Relationship to patient: Personal Rep on file?: with patient Best number to reach caller: [phone] Reason for call: Mara calling with questions regarding medication prior to surgery on 05/10/20. Sheasks if aspirin should be stopped, and acknowledges Eloquis will be stopped tomorrow, and no glipizide on morning Recent Surgery?: upcoming on 05/10/20 If before 4:00 pm: Inform caller that the typical expectation for a call back is within 1-2 hours. documented in this encounter Plan of Treatment Upcoming Encounters Date Type Department Care Team (Late st Contact Info) Description 04/15/2024 10:00 AM EDT Hospital Encounter Non-[place] [phone] Arrived documented as of this encounter Goals [...] on filedocumented in this encounter Care Teams Shovel Log Loader Operator Relationship Specialty Start Date End Date Urbano Denis DO [facility] [address] [facility] 1 [place] [address] PCP - General 09/03/12 03/17/22 Ruchi Valles RN Nurse Clinic Transplant Surgery 07/30/15 documented as of this encounter
--- OUTSIDE RECORDS SUMMARY | 2024-02-14 11:20 | XMS_ITS | Encounter Summary ---
Author Organization [facility] Address [facility] [place] [address] Care Team Providers Care Construction Person Name Role Phone Urbano Denis DO Primary Care Provider [phone] Reason for Visit * Auth/Cert Specialty Diagnoses [...] Expiration Date Visits Re quested Visits Authorized [id number] 1 1 Encounter Details Date Type Department Care Team (Late st Contact Info) Description 05/10/2020 7:27 AM EST Anesthesia Event [place] [id number] Brian Perez MD [facility] [place] [address] Sonido Gurrola MD [facility] [place] [address] Anesthesia Record Procedure Summary Procedure Name Responsible Anesthesiologist Anesthesia Start Time Anesthesia Stop Time LAMINECTOMY, FACETECTOMY & FORAMINOTOMY,LUMBAR, ONE LEVEL (VU 15.37) Brian Perez MD 05/10/20 0727 05/10/20 1043 Events Date Time Event Comment 05/10/2020 0718 0727 AN Verify 0727 Start 0727 An Start Data 0734 An Induction 0736 An Intubation Soft bite bloc k placed 0745 Anesthesia Ready 0823 Procedure Start 0824 Quick Note Turned prone wi th prone-view. No pressure noted on eyes or face. Head in neutral position. 1036 Extubation/LMA Out 1036 an stop data 1043 Recovery or ICU Handoff Alanna ent care was transferred to the destination unit staff after review of the patient's medical history, current anesthetic/surgical status and plan, according to the Provider Handoff Checklist. 1043 Stop Meds Name Total Midazolam 1 mg fentaNYL 100 mcg IV Lidocaine 80 mg Propofol 150 mg Rocuronium 10 mg ePHEDrine 20 mg Ondansetron 4 mg Neostigmine 1 mg Glycopyrrolate 0.4 mg Propofol INF 1,407.65 mg ceFAZolin (Ancef) 2 g in dextrose 5% 100 mL infusion 2 g REMIfentanil INF 2.04 mg Succinylcholine 100 mg PHENYLephrine INF 2,580 mcg HYDROmorphone 0.2 mg lactated ringers infusion 700 mL Lactated Ringers 200 mL * Agents Name O2 Air N2O Sevoflurane (et) * Blood No blood administrations on file. Lines, Drains, and Airways Type Details Placement Removal Hemodialysis AV Access Device - Single Lumen 02/02/19; 1031; upper arm, left 02/02/19 1031 by Sharon Ruth RN Incision 06/17/18; 1537; urethral meatus; scope inserted through natural orifice for cystoscopy. ; 01/30/22; 1823 06/17/18 1537 by Meli Mukherjee RN 01/30/22 1823 by Sonia Yu RN (RETIRED) Peripheral IV Line - Single Lumen 02/07/19; 0315; cephalic vein (lateral side of arm), right; xrsa-ljz-nzezqi catheter system; 20 gauge, 1 in length; distraction, tolerated well; 05/10/20; 0713 02/07/19 0315 by Marisela Barnes LPN 05/10/20 0713 by Alonzo Cohen RN (RETIRED) Peripheral IV Line - Single Lumen 05/10/20; 0645; median vein (underside of arm), right; mgit-uhf-getffp catheter system; 20 gauge; alonzo cohen; distraction; 05/11/20; 1129 05/10/20 0645 by Alonzo Cohen RN 05/11/20 1129 by Germaine Mayer ETT Mask Ventilation: Ea sy (1); ETT Type: Cuffed, Oral; ETT Size: 8 mm; Mac Blade: 4; Notes: Asleep, Pre-O2, Stylette; Attempts: 1; Laryngoscopy Grade: 1; ETT Placement Verified By: Auscultation, Capnometry, Visual; Secured at Teeth: 22 cm; Inserted by: Xochitl LUNDBERG; Removal Date: 05/10/20; Removal Time: 1036 05/10/20 0736 by Emerald Carlson CUFF SETTER OVERLOCK 05/10/20 1036 by Xochitl Camara Urethral Catheter 05/10/20; 0745; Physician order, Surgery longer than 2 hours; indwelling catheter with core temperature probe; 100% silicone; 14; inserted at this facility; 1; 5; 10; other (see comments) (general anesthesia); drainage bag to dependent drainage; urethral catheter removed; 05/10/20; 1019 05/10/20 0745 by Lacho Escamilla RN 05/10/20 1019 by Lacho Escamilla RN (RETIRED) Peripheral IV Line - Single Lumen 05/10/20; 0753; metacarpal vein (top of hand), right; hmsx-oyc-ntjayw catheter system; 18 gauge; 05/11/20; 1128 05/10/20 0753 by Emerald Carlson CUFF SETTER OVERLOCK 05/11/20 1128 by Germaine Mayer Incision 05/10/20; 0823; back ; LDA not present upon assessment; 01/30/22; 22105/10/20 0823 by Lacho Escamilla RN 01/30/22 5956 by Carmela Martinez RN documented in this encounter Social History [...] OR Notes * Anesthesia Postprocedure Evaluation - Brian Perez MD - 05/10/2020 6:52 PM EST Department of Anesthesiology Post-procedure Note Patient: Cody Bolden Procedure Summary Date: 05/10/20 Room / Location: [facility] OR [address] [place] [address] MAIN OR Anesthesia Start: 726 Anesthesia Stop: 1042 Procedures: LAMINECTOMY, FACETECTOMY & FORAMINOTOMY,LUMBAR, ONE LEVEL (WRVU 15.37) (N/A ) LAMINOTOMY, DECOMPRESSION, FORAMINOTOMY, LUMBAR (WRVU 13.18) (N/A Spine Lumbar) FLUOROSCOPY (WRVU 0.17) (N/A ) MICROSCOPE USE (WRVU 3.46) (N/A ) MODIFIER METRX SYS. (N/A ) Diagnosis: (Left L45 radiculopathy bilateral lateral recess stenosis) Surgeon: Joseph Ang MD Responsible Provider: Brian Perez MD Anesthesia Type: general ASA Status: 3 All Anesthesia Providers: Anesthesiologist: Brian Perez MD CUFF SETTER OVERLOCK: Emerald Carlson CRNA Student Nurse School Health Assistant: Xochitl Pitts Vitals Value Taken Time BP 138/58 05/10/20 1230 Temp 36.5 ??C (97.7 ??F) 05/10/20 1040 Pulse 49 05/10/20 1237 Resp 19 05/10/20 1237 SpO2 91 % 05/10/20 1242 Pain Level 0 05/10/20 1200 Vitals shown include unvalidated device data. Patient Location: PACU/[facility] Level of Consciousness: Conscious but Sleepy Pain Management: Satisfactory Analgesia PONV: None Cardiovascular Status: At Baseline Respiratory Status: At Baseline Postoperative Fluid Status: Intravascular EUvolemia Possible Anesthetic Complications: NONE apparent at time of evaluation Final Primary Anesthesia Type: General (The anesthetic type performed was the same as planned.) Comments: Still sleepy at time of my exam earlier today, but doing well. Uneventful course in PACU until transfer to [facility] * Anesthesia Preprocedure Evaluation - Brian Perez MD - 04/11/2020 2:49 PM EDT Images from the original note were not included. Pre-Anesthesia Evaluation for: Cody Bolden a 69 y.o. male. Procedure(s): LAMINECTOMY, FACETECTOMY & FORAMINOTOMY,LUMBAR, ONE LEVEL (VU 15.37) Patient Active Problem List Diagnosis ??? CAD (coronary artery disease) 01/31/2019 NSTEMI [...] ??? DJD (degenerative joint disease) ??? Hematuria Past Medical History: Diagnosis Date ??? RAY [...] EXTREMITY performed by Que Amaro MD at [facility] OR ??? PRO CYSTOURETHROSCOPY, URETER CATHETER Left 06/17/2018 CYSTO, RETROGRADE, URETEROPYELOGRAPHY (WRVU 2.37) [facility] ??? PRO REIMPLANT URETER, SINGLE URETER Left 05/20/2016 @URETERONEOCYSTOSTOMY ANASTOMOSIS OF SINGLE URETER TO BLADDER performed by Santosh Arredondo MD at [facility] OR ??? PRO REIMPLANT URETER, SINGLE URETER N/A 05/20/2016 @URETERONEOCYSTOSTOMY ANASTOMOSIS OF SINGLE URETER TO BLADDER performed by Que Amaro MD at [facility] OR ??? PRO TOTAL KNEE ARTHROPLASTY Right 11/25/2017 TOTAL KNEE ARTHROPLASTY (WRVU 20.72) performed by Breezy Dale MD at [facility] OR ??? PRO TRANSPLANT, PREP CADAVER RENAL GRAFT N/A 09/16/2015 @PREPARATION CADAVERIC RENAL ALLOGRAFT performed by Franko Larkin MD at [facility] OR ??? PRO TRANSPLANTATION OF KIDNEY N/A 09/16/2015 @KIDNEY TRANSPLANT, WITHOUT RECIPIENT NEPHRECTOMY performed by Franko Larkin MD at [facility] OR ??? TISSUE TRANSFER kidney ??? US RENAL TRANSPLANT LEFT Left 01/31/2019 US Renal Transplant Left 01/31/2019 [facility] RAD ULTRASOUND ??? US RENAL TRANSPLANT LEFT Left 02/07/2019 US Renal Transplant Left 02/07/2019 [facility] RAD ULTRASOUND Social History Tobacco Use ??? Smoking status: Current Some Day Smoker Packs/day: 0.00 Years: 30.00 Pack years: 0.00 Types: Cigars Last attempt to quit: 01/02/2015 Years since quittin.2 ??? Smokeless tobacco: Never Used ??? Tobacco comment: cigars, one weekly Substance Use Topics ??? Alcohol use: No Social History Substance and Sexual Activity Drug Use Yes ??? Types: Marijuana Comment: 1-2x a week No Known Allergies Medications: MAR and/or home medications have been reviewed. Physical Exam: No data found. There is no height or weight on file to calculate BMI. Airway Assessment: Mallampati: II TM distance: >3 FB Neck ROM: full Full barry Cardiovascular Assessment: Rhythm: regular Rate: normal Pulmonary Assessment: breath sounds clear to auscultation PE comment: Good FVC Dental Assessment: Misc Assessment: Anesthesia Plan: ASA 3 general, with a(n) intravenous induction Addendum 05/10/2020 (MD Ana): 69yo for L4-5 decompression . PAT note reviewed. No interval change. Good functional status. Risks reviewed. Pt requests to proceed. Region - Other Informed Consent: Anesthetic plan and risks discussed with patient and spouse. Plan discussed with CUFF SETTER OVERLOCK. CATA PAT Clinic Note: Date and Time of Entry: 04/11/2020 2:49 PM Entered By: Sonido Gurrola MD Reason for Evaluation: Decision Support/Risk Assessment and Surgeon Request Hx of Anesthesia Problem: None reported PAT Visit Type: Interviewed in person Findings, Assessment and Plan: Yash Bolden is a 69 yoM w PMH of T2DM (A1C of 7.1), HTN, ESRD ( s/prenal transplant in 2016, Cr of 1.43 on Prograf/Cellcept), GERD, HTN, afib (metoprolol), hx of CVA without residual deficits (on Apixaban) and CAD ( NSTEMI s/p stent placement in 01/2019) who presentsfor pre anesthesia evaluation prior to a planned L4/[address] Ang. 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 He does no report anysigns or symptoms of heart failure. He takes all of his medications and is looking forward to having the procedure completed. Exam Airway: Dental bridge on front upper teeth, lower teeth intact, MPII, Full neck ROM CV: Bradycardic, 2/6 systolic murmur appreciated, no rubs or gallops Pulm: LCTAB, good air movement, no focal consolidation Neuro: A&O x4, no evidence of cognitive deficit, AD8 score of 0 TTE 02/07/2019?? SUMMARY:?? 1. Limited TTE 2. There is normal global left ventricular [...] annular calcification. There is mild to moderate (1-2+/4) mitral regurgitation present. The mitral regurgitant jet is posteriorly directed. There is mild to moderate (1-2+/4) tricuspid regurgitation present. No obvious vegetations are seen. Assessment: Mr. Bolden is doing remarkably well given his cardiovascular history. His DASI score is 50.7 (equivalent to 9 mets). He reports no chest pain, orthopnea, edema or SOB. He is doing well neurologically with a score of ) in his AD8 assessment. He has been cleared by cardiology to receive surgery with a plan of stopping eliquis 2 days prior to the procedure. There are no contraindications from an an esthesia standpoint to undergoing the planned procedure. Attending Addendum: Medical record reviewed. Case discussed. Agree with assessment by Dr Gurrola. No further work-up necessary. No contraindications to proceeding. Renal function mildly abnormal but stable. Pedro Luis Ibrahim MD Staff Anesthesiologist documented in this encounter Plan of Treatment Upcoming Encounters Date Type Department Care Team (Late st Contact Info) Description 04/15/2024 10:00 AM EDT Hospital Encounter Non[place] [address] Arrived documented as of this encounter Goals [...] Action Date Dose Rate Site ceFAZolin (Ancef) 2 g in dextrose 5% 100 mL infusion 2 g, Intravenous, ONCE, 1 dose, On Laura 05/10/20 at 0630, Administer over 30 Minutes, To be administered upon arrival to the OR within one hour prior to incision., Day of Surgery (Day of Procedure), Indication for (Active or Suspected): Prophylaxis Given 05/10/2020 7:45 AM EST 2 g ePHEDrine 5 mg/mL multi-dose injection PRN, Starting on Laura 05/10/20 at 0753, Until Laura 05/10/20 at 1043, Anesthesia Intra-op, Routine Given 05/10/2020 8:19 AM EST 5 mg Given 05/10/2020 8:06 AM EST 10 mg Given 05/10/2020 7:53 AM EST 5 mg fentaNYL 50 mcg/mL multi-dose injection PRN, Starting on Laura 05/10/20 at 0730, Until Laura 05/10/20 at 1043, Anesthesia Intra-op, Routine Given 05/10/2020 7:30 AM EST 100 mcg glycopyrrolate (ROBINUL) multi-dose injection PRN, Starting on Laura 05/10/20 at 0805, Until Laura 05/10/20 at 1043, Anesthesia Intra-op, Routine Given 05/10/2020 10:01 AM EST 0.2 mg Given 05/10/2020 8:05 AM EST 0.2 mg HYDROmorphone (DILAUDID) injection PRN, Starting on Laura 05/10/20 at 1008, Until Laura 05/10/20 at 1043, Anesthesia Intra-op, Routine Given 05/10/2020 10:08 AM EST 0.2 mg lactated ringers infusion CONTINUOUS PRN, Starting on Laura 05/10/20 at 0755, Until Laura 05/10/20 at 1043, Anesthesia Intra-op New Bag 05/10/2020 7:55 AM EST lidocaine (PF) (XYLOCAINE) 100 mg/5 mL (2 %) injection PRN, Starting on Laura 05/10/20 at 0733, Until Laura 05/10/20 at 1043, Anesthesia Intra-op, Routine Given 05/10/2020 7:33 AM EST 80 mg midazolam (PF) (VERSED) multi-dose injection PRN, Starting on Laura 05/10/20 at 0725, Until Laura 05/10/20 at 1043, Anesthesia Intra-op, Routine Given 05/10/2020 7:25 AM EST 1 mg neostigmine (BLOXIVERZ) injection PRN, Starting on Laura 05/10/20 at 1001, Until Laura 05/10/20 at 1043, Anesthesia Intra-op, Routine Given 05/10/2020 10:01 AM EST 1 mg ondansetron (ZOFRAN) injection PRN, Starting on Laura 05/10/20 at 1004, Until Laura 05/10/20 at 1043, Anesthesia Intra-op, Routine Given 05/10/2020 10:04 AM EST 4 mg PHENYLephrine (ERICA-SYNEPHRINE) 20 mg in sodium chloride 250 mL (standard ADULT & Pedi greater than 20kg) infusion CONTINUOUS PRN, Starting on Laura 05/10/20 at 0800, Until Laura 05/10/20 at 1043, Anesthesia Intra-op, Routine New Bag 05/10/2020 8:00 AM EST 20 mcg/min 15 mL/hr propofoL (Diprivan) 10 mg/mL bolus injection (Anesthesia) PRN, Starting on Laura 05/10/20 at 0734, Until Laura 05/10/20 at 1043, Anesthesia Intra-op Given 05/10/2020 7:34 AM EST 150 mg propofoL (Diprivan) infusion CONTINUOUS PRN, Starting on Laura 05/10/20 at 0742, Until Laura 05/10/20 at 1043, Anesthesia Intra-op, Routine Rate/Dose Change 05/10/2020 9:54 AM EST 50 mcg/kg/min 31 mL/hr Rate/Dose Change 05/10/2020 8:24 AM EST 100 mcg/kg/min 61. 9 mL/hr Rate/Dose Change 05/10/2020 7:51 AM EST 80 mcg/kg/min 49.5 mL/hr remifentanil (ULTIVA) 0.02 mg/mL IV infusion (ANESTHESIA) CONTINUOUS PRN, Starting on Laura 11 at 0742, Until Laura 05/10/20 at 1043, Anesthesia Intra-op Restarted 05/10/2020 8:23 AM EST 0.2 mcg/kg/min 61.9 mL/hr Rate/Dose Change 05/10/2020 7:51 AM EST 0.1 mcg/kg/min 31 mL/hr New Bag 05/10/2020 7:42 AM EST 0.2 mcg/kg/min 61.9 mL/h r rocuronium (ZEMURON) multi-dose injection PRN, Starting on Laura 11 at 0745, Until Laura 05/10/20 at 1043, Anesthesia Intra-op, Routine Given 05/10/2020 7:45 AM EST 10 mg succinylcholine chloride (Quelicin) injection PRN, Starting on Laura 05/10/20 at 0734, Until Laura 05/10/20 at 1043, Anesthesia Intra-op, Routine Given 05/10/2020 7:34 AM EST 100 mg documented in this encounter Care Teams Construction Person Relationship Specialty Start Date End Date Urbano Denis DO [address] [place] [address] [address] [place] [address] PCP - General 09/03/12 03/17/22 Ruchi Valels RN Nurse Clinic Transplant Surgery 07/30/15 documented as of this encounter
--- OUTSIDE RECORDS SUMMARY | 2024-02-14 11:20 | XMS_ITS | Encounter Summary ---
Author Organization [facility] Address [facility] [place] [address] Care Team Providers Care System Archive Analyst Name Role Phone Adeel Urbano KIRBY Primary Care Provider + [phone] Reason for Visit * Consultation (Routine) - Specialty Diagnoses / Procedures Referred By Contac t Referred To Contact Neurosurgery Diagnoses Radiculopathy, lumbar region Lumbar radiculopathy Sona Bradford MD [address] [place] [id number] Joseph Ang MD [facility] [place] [address] Referral ID Status Reason Start Date Expiration Date V isits Requested Visits Authorized [id number] Consult, Test & Treat Connection [facility] PCP Updated and/or Approved 03/20/2020 03/20/2021 6 6 Encounter Details Date Type Department Care Team (Latest Contact Info) Description 03/27/2020 11:00 AM EDT TH Visit (TeleHealth) [place] [address] Franko Torres PA [facility] [place] [address] Spinal stenosis of lumbar region, unspecified whether neurogenic claudication present Social History Tobacco Use Types Packs/Day [...] as of this encounter Progress Notes * Franko Torres, MCKINLEY - 03/27/2020 11:00 AM EDT Images from the original note were not included. Section of Neurosurgery Initial Consultation Note - Telephone Office Visit 03/27/2020 Urbano Denis, DO [address] [place] [address] RE: Cody Bolden : [address] Denis: Thank you for referring your patient Cody Bolden to the Neurosurgery Clinic at [facility] for evaluation of lumbar spinal stenosis. As you know, Mr. Bolden is a pleasant 69 y.o. male who was set to undergo L4-[address] Bradford but referred to [facility] due anesthesiology concerns and complexity of care given cardiac history (CAD, h/o NSTEMI, s/p PCI, A-fib, on OAC, and ASA) and immunosuppression for renal transplant. He reports a history of bilateral leg pain from the back down the buttocks to the posterior thighs not going beyond the knees. Sitting exacerbates his pain, as does rising from a seated position. Walking helps his pain. He denies weakness and numbness. He reports his gait is shuffling. Medical therapies attempted: Tylenol marijuana Physical therapies attempted: None Interventional therapies attempted: None PAST MEDICAL HISTORY: Patient Active Problem List Diagnosis ??? CAD (coronary artery disease) Overview Note: [...] flutter initially, then fib ??? Hydronephrosis ??? S/P R TKA 11/25/17 Dr. Dale ??? Obesity (BMI 30.0-34.9) ??? Debility ??? Pain of right lower extremity ??? Vitamin D deficiency ??? 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 half-way current use of 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 drug ??? CAH (chronic active hepatitis) ??? Immunosuppression ??? Type 2 diabetes mellitus with complication, without long-term current use of insulin ??? Weight increase ??? Sepsis ??? H/O kidney transplant ??? Encounter for long-term (current) use of other medications ??? Aftercare following organ transplant ??? Dehydration ??? Ureteral stricture ??? Enterococcal bacteremia ??? Fever ??? UTI (urinary tract infection) ??? RAY (acute kidney injury) ??? Kidney transplant infection ??? Hepatitis C virus infection ??? Essential hypertension Overview Note: Overview: ICD10 Update Auto Replacement ??? 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 DM type 2 (diabetes mellitus, type 2) ??? Hypertension ??? DJD (degenerative joint disease) ??? Hematuria Past Medical History: Diagnosis Date ??? Back pain ??? Colon polyp ??? CVA (cerebral vascular accident) Per report but no deficits ??? ESRD (end stage renal disease) ??? GERD (gastroesophageal reflux disease) ??? HTN (hypertension) ??? Microhematuria ??? Type 2 diabetes mellitus PAST SURGICAL HISTORY: Past Surgical History: Procedure Laterality Date ??? PRO ANASTOMOSIS, AV, ANY SITE Left 05/09/2015 AV FISTULA CREATION, DIRECT HEMODIALYSIS, ANY SITE, EG ASHWINI FISTULA UPPER EXTREMITY performed by Que Amaro MD at [facility] MAIN OR ??? PRO CYSTOURETHROSCOPY, URETER CATHETER Left 06/17/2018 CYSTO, RETROGRADE, URETEROPYELOGRAPHY (WRVU 2.37) performed by Edinson Grider III, MD at [facility] ??? PRO REIMPLANT URETER, SINGLE URETER Left 05/20/2016 @URETERONEOCYSTOSTOMY ANASTOMOSIS OF SINGLE URETER TO BLADDER performed by Santosh Arredondo MD at [facility] OR ??? PRO REIMPLANT URETER, SINGLE URETER N/A 05/20/2016 @URETERONEOCYSTOSTOMY ANASTOMOSIS OF SINGLE URETER TO BLADDER performed by Que Amaro MD at [facility] OR ??? PRO TOTAL KNEE ARTHROPLASTY Right 11/25/2017 TOTAL KNEE ARTHROPLASTY (WRVU 20.72) performed by Breezy Dale MD at [facility] OR ??? PRO TRANSPLANT, PREP CADAVER RENAL GRAFT N/A 09/16/2015 @PREPARATION CADAVERIC RENAL ALLOGRAFT performed by Franko Larkin MD at [facility] OR ??? PRO TRANSPLANTATION OF KIDNEY N/A 09/16/2015 @KIDNEY TRANSPLANT, WITHOUT RECIPIENT NEPHRECTOMY performed by Franko Larkin MD at [facility] OR ??? US RENAL TRANSPLANT LEFT Left 01/31/2019 US Renal Transplant Left 01/31/2019 [facility] RAD ULTRASOUND ??? US RENAL TRANSPLANT LEFT Left 02/07/2019 US Renal Transplant Left 02/07/2019 [facility] RAD ULTRASOUND SOCIAL HISTORY: Social History Tobacco Use ??? Smoking status: Current Some Day Smoker Types: Cigars Last attempt to quit: 01/02/2015 Years since quittin.2 ??? Smokeless tobacco: Never Used ??? Tobacco comment: cigars, one weekly Substance Use Topics ??? Alcohol use: No ??? Drug use: Yes Types: Marijuana Comment: 1-2x a week FAMILY HISTORY: Family History Problem Relation Age of Onset ??? Chronic Obstructive Pulmonary Disease Mother ??? Arrhythmia Mother ??? Heart Disease Father CURRENT MEDICATIONS: ??? atorvastatin (Lipitor) 40 mg Tablet ??? potassium phosphate, monobasic, (K-Phos Original) 500 mg Tablet, Soluble ??? Magnesium Gluconate 27 mg magnesium (500 mg) Tablet ??? glipiZIDE XL (Glucotrol XL) 10 mg Tablet Extended Rel 24 hr ??? amLODIPine (Norvasc) 2.5 mg Tablet ??? mycophenolate (Cellcept) 250 mg Capsule ??? tacrolimus (Prograf) 1 mg Capsule ??? calciTRIol (Rocaltrol) 0.5 mcg Capsule ??? metoprolol succinate XL (Toprol-XL) 25 mg Tablet Sustained Release 24 hr ??? apixaban (ELIQUIS) 5 mg Tablet ??? nitroGLYcerin (NITROSTAT) 0.4 mg Tablet, Sublingual ??? tamsulosin (FLOMAX) 0.4 mg Capsule ??? acetaminophen (TYLENOL) 500 mg Tablet ??? levothyroxine (SYNTHROID) 137 mcg Tablet ??? ascorbic acid, vitamin C, (VITAMIN C) 500 mg Tablet ALLERGIES: No Known Allergies REVIEW OF SYSTEMS: Full ROS reviewed. Pertinent findings per HPI. PHYSICAL EXAMINATION: Telephone RADIOGRAPHIC STUDIES: MRI lumbar spine wo contrast 04/28/2019 L4-5 broad based disc bulge and facet arthropathy, posterior ligamentous thickening contributing tobilateral recess stenosis and moderate central canal stenosis. L5-S1 DDD with broad based disc bulge and reactive endplate changes without significant stenosis. IMPRESSION AND PLAN: Mr. Bolden is a 69 y.o. male presenting with degenerative lumbar spinal stenosis L4-5, back and bilateral buttock/posterior thigh pain He was offered lumbar decompression by Dr. Bradford but referred to [facility] given his medical comorbidities. He has had cardiac clearance for surgery and to come off his OAC, though continuing ASA without stopping for surgery was recommended to lower periop MO and stent thrombosis risk. I explainedthat we likely could not perform spine surgery without stopping his antiplatelet medication and he is aware of the risk either way. He wishes to pursue surgical options and is not interested in conservative management at this time. Based on my findings I suggest the following course of action: 1. Follow up with Dr. Ang to discuss surgical options - H&P and PAT w/ anesthesia consult same day 2. XR lumbar spine x/ flexion-extension It was my pleasure to have consulted with Mr. Bolden today. I will be sure to keep you updated after Mr. Bolden returns here for further follow-up. Thank you again for your referral. Please don'thesitate to contact me if you have any further questions. Patient verbally consents to this telephone visit and understands that this visit may be billed, similar to a clinic office visit. I provided care to the patient today via telephone call. The total time associated with this visit was 30 minutes. Sincerely, Franko Torres PA-C, MS Physician Global Project Manager [facility] Department of Neurosurgery [address] [place], [place] [id number] CC: Urbano Denis DO CC: Urbano Denis DO [address] [place] [address] This message is confidential, intended only for the named recipient(s) and may contain information that is privileged or exempt from disclosure under applicable law. If you are not the intended recipient(s), you are notified that the dissemination, distribution or copying of this information is strictly prohibited. If you received this message in error, please notify the sender then delete this message. documented in this encounter Plan of Treatment Upcoming Encounters Date Type Department Care Team (Late st Contact Info) Description 04/15/2024 10:00 AM EDT Hospital Encounter Non[place] [address] Arrived documented as of this encounter Goals Goal Patient Goal Type Associated Problems Recent Progress Patient-Stated? Author DH Home Medication Compliance and Understanding Patient Facing Action Plan On track( 017 10:41 AM EDT) Selena Scott, [facility] Note: Patient Goal: Clear hepatitis C Timeframe to meet goal: within 12 weeks of therapy documented as of this encounter Visit Diagnoses Diagnosis Spinal stenosis of lumbar region, unspecified whether neurogenic claudication present documented in this encounter Care Teams System Archive Analyst Relationship Specialty Start Date End Date Urbano Denis DO [address] [place] [address] PCP - General 09/03/12 03/17/22 Ruchi Valles RN Nurse Clinic Transplant Surgery 07/30/15 documented as of this encounter
--- OUTSIDE RECORDS SUMMARY | 2024-02-14 11:20 | XMS_ITS | Encounter Summary ---
Author Organization [facility] [place] [address] Care Team Providers Care Casing Splitter Name Role Phone Adeel Urbano KIRBY Primary Care Provider Encounter Details Date Type Department Care Team (Late st Contact Info) Description 05/07/2020 10:00 AM [facility] Public [facility] [place] [address] COVID-19 ruled out Social History Tobacco Use Types Packs/Day Years [...] AM EDT Hospital Encounter Non-Invasive [place] [phone] Arrived documented as of this encounter Goals Goal Patient Goal Type Associated Problems Recent Progress Patient-Stated? Author [facility] Medication Compliance and Understanding Patient Facing Action Plan On track( 017 10:41 AM EDT) No Selena Cisneros [facility] Note: Patient Goal: Clear hepatitis C Timeframe to meet goal: within 12 weeks of therapy documented as of this encounter Procedures Procedure Name Priority Date/Time Associated Diagnosis Comments COVID-19 PCR STAT 05/07/2020 12:36 PM EST COVID-19 ruled out documented in this encounter Results * COVID-19 PCR (05/07/2020 12:36 PM EST) SARS-CoV-[address] [facility] Comment: This result should be interpreted in combination with the clinical observations, patient history and epidemiological information in making a final diagnosis. For testing of asymptomatic individuals, assay performance characteristics and clinical utility have not been evaluated. Testing for SARS-CoV-2 (Severe acute respiratory syndrome coronavirus 2, formerly known as 2019 novel coronavirus or 2019-nCoV) to aid in the diagnosis of COVID-19 is performed using the [employer] RealTime SARS-CoV-2 Assay as authorized by the FDA Emergency Use Authorization (EUA). This EUA assay is intended for In-vitro Diagnostic (IVD) use with respiratory specimens such as nasopharyngeal swabs collected from individuals during the acute phase of infection. This assay is performed based on the instructions for use provided by [employer] and additional guidance provided by CDC and FDA. Testing is performed in the [facility] within the Department of Pathology and Laboratory Medicine at [facility], certified under the Clinical Laboratory Improvement Amendments of 1988 (CLIA), 42 U.S.C. 263a, to perform high complexity tests. Assay performance has been verified according to clinical laboratory regulatory requirements for use with specimens collected from individuals suspected of COVID-19. Test results are provided above. A result of ? Not Detected? indicates that the viral RNA target is not present above the limit of detection, but does not preclude SARS-CoV-2 infection. False negative results may occur if a specimen is improperly collected, transported or handled; if amplification inhibitors are present; or if inadequate numbers of viral particles are present in the specimen. When a diagnostic test is negative, the possibility of a false negative result should be considered in the context of a patient? s recent exposures and the presence of clinical signs and symptoms consistent with COVID-19. A result of ? Detected? indicates that RNA from SARS-CoV-2 was detected and the patient is infected. As required or requested by public health authorities, positive specimens may be sent for additional testing. Positive and negative predictive values for this test are highly dependent on disease prevalence. A result of ? Invalid? indicates that neither the viral RNA targets nor the internal control target was detected. An invalid result suggests the presence of inhibitors. Recollection and re-testing is recommended in the case of an invalid result. CDC COVID-19 criteria for testing on human specimens and clinical management guidance information are available at the CDC Coronavirus Disease 2019 (COVID-19) webpage under ? Information for Healthcare Professionals? (https://www.cdc.gov/coronavirus/2019-ncov/hcp/index.html) Additional information about this and other EUA tests can be found in provider and patient fact sheets at the following FDA website: https://www.fda.gov/medical-devices/hefkhtvuwmm-piyvwzg-2957-rikyr-39-yvmthsnue- use-a tytprifckoldd-sbpgjnr-vqcgwdb/kyrpc-ieohdygxlsb-pdrc SARS-CoV-2 RNA Source [employer] [facility] Swab [facility] Nasopharyngeal swab (specimen) 05/07/2020 12:36 PM EST 05/07/2020 12:36 PM EST Comment:Symptoms->Asymptomat ic Narrative Resulting Agency Comment Spec In Lab Joseph Ang MD MOLECULAR ORDERABLES [facility] [place] [address] documented in this encounter Visit Diagnoses Diagnosis COVID-19 ruled out documented in this encounter Care Teams Casing Splitter Relationship Specialty Start Date End Date Urbano Denis DO [address] [place] [address] PCP - General 09/03/12 03/17/22 Ruchi Valles RN Nurse Clinic Transplant Surgery 07/30/15 documented as of this encounter
--- OUTSIDE RECORDS SUMMARY | 2024-02-14 11:20 | XMS_ITS | Encounter Summary ---
[place] [address] Care Team Providers Care Packing House Laborer Name Role Phone Urbano Denis DO Primary Care Provider [phone] Reason for Visit * Reason Onset Date Comments Post Hospital Discharge 05/14/2020 Encounter Details Date Type Department Care Team (Late st Contact Info) Description 05/14/2020 [place] [id number] Genoveva Willard, RN Post Hospital Discharge Social History Tobacco Use Types Packs/Day Years [...] encounter Miscellaneous Notes * Telephone Encounter - Sonia Alcantar - 05/14/2020 12:21 PM EST Warm transferred from to scheduled f/u - scheduled and appt card sent * Telephone Encounter - Genoveva Willard - 05/14/2020 12:03 PM EST Cody Bolden 1950 69 y.o. [id number] F/U call s/p: L L45 discectomy/decompression Date of Discharge: 05/11/2020 Date of Call: 05/14/2020 Neuro: alert and oriented: X4 Dizzy or lightheaded: Denies Numbness/tingling/weakness: Denies Ambulation: Normal, steady gait; just got back in from a walk Vision: Normal Speech: Normal Hearing: Normal Incision: appears WDL, no s/s of infection. Absorbable sutures. Pain: Sucking down Oxycodone ever 6-7 hours also taking Tylenol for incisional pain. PO: Decreased appetite, reports his is keeping on top of him and will make him lunch soon. B&B: Normal Sleep: Normal Medication: Taking all medication w/o issue Other: All questions and concerns have been addressed documented in this encounter Plan of Treatment Upcoming Encounters Date Type Department Care Team (Late st Contact Info) Description 04/15/2024 10:00 AM EDT Hospital Encounter [place] [address] Arrived documented as of this encounter Goals [...] on filedocumented in this encounter Care Teams Packing House Laborer Relationship Specialty Start Date End Date Urbano Denis DO [address] [place] [address] PCP - General 09/03/12 03/17/22 Ruchi Valles RN Nurse Clinic Transplant Surgery 07/30/15 documented as of this encounter
--- OUTSIDE RECORDS SUMMARY | 2024-02-14 11:20 | XMS_ITS | Encounter Summary ---
Author Organization [facility] [place] [address] Care Team Providers Care Hollow Ware Maker Name Role Phone Urbano Denis DO Primary Care Provider Encounter Details Date Type Department Care Team (Latest Contact Info) Description 04/11/2020 2:00 PM EDT Laboratory [place] [phone] Spinal stenosis of lumbar region, unspecified whether [...] AM EDT Hospital Encounter Non-Invasive [place] [phone] Arrived documented as of this encounter Goals Goal Patient Goal Type Associated Problems Recent Progress Patient-Stated? Author [facility] Medication Compliance and Understanding Patient Facing Action Plan On track( 017 10:41 AM EDT) No Selena Cis[facility] Note: Patient Goal: Clear hepatitis C Timeframe to meet goal: within 12 weeks of therapy documented as of this encounter Procedures Procedure Name Priority Date/Time Associated Diagnosis Comments URINALYSIS MICROSCOPIC EXAM Routine 04/11/2020 2:50 PM EDT URINALYSIS WITH REFLEX CULTURE Routine 04/11/2020 2:50 PM EDT Spinal stenosis of lumbar region, unspecified whether neurogenic claudication present HEMOGRAM Routine 04/11/2020 2:45 PM EDT Spinal stenosis of lumbar region, unspecified whether neurogenic claudication present DIFFERENTIAL, AUTOMATED Routine 04/11/2020 2:45 PM EDT Spinal stenosis of lumbar region, unspecified whether neurogenic claudication present HC CREATININE Routine 04/11/2020 2:45 PM EDT Spinal stenosis of lumbar region, unspecified whether neurogenic claudication present HC PARTIAL THROMBOPLASTIN TIME Routine 04/11/2020 2:45 PM EDT Spinal stenosis of lumbar region, unspecified whether neurogenic claudication present HC PROTHROMBIN TIME Routine 04/11/2020 2 :45 PM EDT Spinal stenosis of lumbar region, unspecified whether neurogenic claudication present HC CBC,PLT & AUTO DIFF Routine 0 2:45 PM EDT Spinal stenosis of lumbar region, unspecified whether neurogenic claudication present HC UREA NITROGEN, SERUM Routine 04/11/2020 2:45 PM EDT Spinal stenosis of lumbar region, unspecified whether neurogenic claudication present ELECTROLYTES PANEL Routine 04/11/2020 2: 45 PM EDT Spinal stenosis of lumbar region, unspecified whether neurogenic claudication present documented in this encounter Results * (ABNORMAL) Urinalysis Microscopic Exam (04/11/2020 2:50 PM EDT) RBC, Urine 6(H) 0 - 3 /HPF [facility] WBC, Urine 1 0 - 3 /HPF [facility] Urine specimen obtained by clean catch procedure (specimen) 04/11/2020 2:50 PM EDT 04/11/2020 3:16 PM EDT Narrative Resulting Agency Comment Spec In Lab Joseph Ang MD URINE ORDERABLES Performing Organization Address City/[facility]/ZIP Co de Phone Number [facility] [place] [address] * (ABNORMAL) Urinalysis with reflex Culture (04/11/2020 2:50 PM EDT) Glucose, Urine Dipstick Negative Negative [...] [facility] Ketone, Urine Dipstick Negative Negative mg/dL [facility] Nitrite, Urine Dipstick Negative Negative [facility] Leukocytes, Urine Dipstick Negative Negative [facility] Appearance, Urine Dipstick Clear Clear [facility] Specific [place] Urine Automated 1.019 1.006 - 1.030 [facility] Color, Urine Dipstick Yellow Yellow [facility] Reflex to Culture No [facility] Urine specimen obtained by clean catch procedure (specimen) 04/11/2020 2:50 PM EDT 04/11/2020 3:16 PM EDT Narrative Resulting Agency Comment Spec In Lab Joseph Ang MD URINE ORDERABLES [facility] [place] [address] * Differential, Automated (04/11/2020 2:45 PM EDT) Pathologist [facility] Neutrophil % 70.6 % [facility] Neutrophil Absolute 5.91 1.70 - 6.10 x10(3)/[facility] Lymph % 18.2 % [facility] Lymphocytes Abs 1.5 0.9 - 3.2 x10(3)/[facility] Monocyte % 6.5 % [facility] Monocyte Abs 0.5 0.3 - 0.9 x10(3)/[facility] Eos % 3.5 % [facility] Eosinophils Abs 0.3 0.0 - 0.4 x10(3)/[facility] Basophil % 0.7 % [facility] Baso Absolute 0.1 0.0 - 0.1 x10(3)/[facility] Immature Gran % 0.50 % [facility] Comment: Immature granulocytes(IG's)percentage and absolute count will include metamyelocytes, myelocytes, and promyelocytes. Blood smears from CBCs yielding IG's will be scanned manually for concordance. If this scan disagrees with the automated IG or if promyelocytes are noted, a manual differential will be performed. Immature Gran Absolute 0.04 0.00 - 0.04 x10(3)/[facility] Blood specimen (specimen) 04/11/2020 2:45 PM EDT 04/11/2020 3:18 PM EDT Narrative Resulting Agency Comment Spec In Lab Joseph Ang MD HEMATOLOGY ORDERABLE S [facility] [place] [address] * Hemogram (04/11/2020 2:45 PM EDT) Pathologist [facility] White Blood Cell 8.4 4.0 - 9.5 x10(3)/[facility] Red Blood Cell 5.11 4.58 - 5.54 x10(6)/[facility] Hemoglobin 15.9 13.7 - 16.5 gm/dL [facility] Hematocrit 45.0 40.5 - 48.5 % [facility] Mean Cell Volume 88.1 82.9 - 93.1 fL [facility] Mean Cell Hemoglobin 31.1 27.5 - 32.1 pg [facility] Mean Cell Hemoglobin Concentration 35.3 32.0 - 35.7 gm/dL [facility] Platelet 280 145 - 357 x10(3)/[facility] RDW Standard Deviation 41.5 36.0 - 45.0 fL [facility] RDW coefficient of variation 12.8 11.4 - 13.8 % [facility] Mean Platelet Volume 9.8 7.6 - 12.9 fL [facility] NRBC% auto 0.0 % [facility] NRBC Absolute 0.000 0.000 - 0.000 x10(3)/[facility] Blood specimen (specimen) 04/11/2020 2:45 PM EDT 04/11/2020 3:18 PM EDT Narrative Resulting Agency Comment Spec In Lab Joseph Ang MD HEMATOLOGY ORDERABLE S Performing Organization Address City/State/[facility] Co de Phone Number [facility] [place] [address] * (ABNORMAL) Electrolytes panel (04/11/2020 2:45 PM EDT) Sodium 138 135 - 145 mmol/L [facility] Potassium 3.4(L) 3.5 - 5.0 mmol/L [facility] Comment: Please note: ??Patients with WBC >100,000 may have falsely elevated Potassium levels. ??For accurate Potassium quantification in these patients send serum separator tube (gold top) for subsequent determinations. ??Contact the Clinical Chemistry Laboratory if there are any questions. Chloride 99 98 - 107 mmol/L [facility] Carbon Dioxide 26 22 - 31 mmol/L [facility] Anion Gap 13 5 - 15 mmol/L [facility] Blood specimen (specimen) 04/11/2020 2:45 PM EDT 04/11/2020 3:18 PM EDT Narrative Resulting Agency Comment Spec In Lab Joseph Ang MD CHEMISTRY ORDERABLES Performing Organization Address City/[facility] Co de Phone Number [facility] [place] [address] * BUN (04/11/2020 2:45 PM EDT) Blood Urea Nitrogen 16 10 - 20 mg/dL [facility] Blood specimen (specimen) 04/11/2020 2:45 PM EDT 04/11/2020 3:18 PM EDT Narrative Resulting Agency Comment Spec In Lab Joseph Ang MD CHEMISTRY ORDERABLES Performing Organization Address [facility] Co de Phone Number [facility] [place] [address] * (ABNORMAL) Creatinine (04/11/2020 2:45 PM EDT) Creatinine 1.22 0.80 - 1.50 mg/dL [facility] Est Glomerular Filtration Rate 59(L) >=60 mL/min/1.7 3 m?? [facility] Comment: The eGFR was calculated using the CKD-EPI equation. As with all creatinine based estimates of kidney function, eGFR values calculated with the CKD-EPI equation are not accurate in patients with acute kidney failure, extremes of body mass or the acutely ill. [email or web address] eGFR 69 >=60 mL/min/1.7 3 m?? [facility] Comment: The eGFR was calculated using the CKD-EPI equation. As with all creatinine based estimates of kidney function, eGFR values calculated with the CKD-EPI equation are not accurate in patients with acute kidney failure, extremes of body mass or the acutely ill. [email or web address] Blood specimen (specimen) 04/11/2020 2:45 PM EDT 04/11/2020 3:18 PM EDT Narrative Resulting Agency Comment Spec In Lab Joseph Ang MD CHEMISTRY ORDERABLES Performing Organization Address [facility] de Phone Number [facility] [place] [address] * (ABNORMAL) Prothrombin Time (04/11/2020 2:45 PM EDT) Prothrombin Time 13.9(H) 9.4 - 12.5 sec [facility] International Normalization Ratio 1.2 [facility] Comment: An INR <2.0 indicates [...] be appropriate depending on clinical circumstances. Blood specimen (specimen) 04/11/2020 2:45 PM EDT 04/11/2020 3:18 PM EDT Narrative Resulting Agency Comment Spec In Lab Joseph Ang MD HEMATOLOGY ORDERABLE S Performing Organization Address [facility] Co de Phone Number [facility] [place] [address] * APTT (04/11/2020 2:45 PM EDT) Partial Thromboplastin Time 32 25 - 37 sec [facility] Comment: The PTT is NOT appropriate for heparin monitoring. Use the Anti-Xa level for heparin monitoring (HEP UFH) or LMWH monitoring (HEP LMW). A PTT less than 37 seconds generally indicates adequate hemostasis. Blood specimen (specimen) 04/11/2020 2:45 PM EDT 04/11/2020 3:18 PM EDT Narrative Resulting Agency Comment Spec In Lab Joseph Ang MD HEMATOLOGY ORDERABLE S [facility] [place] [address] documented in this encounter Visit Diagnoses Diagnosis Spinal stenosis of lumbar region, unspecified whether neurogenic claudication present documented in this encounter Care Teams Hollow Ware Maker Relationship Specialty Start Date End Date Urbano Denis DO [address] [place] [address] PCP - General 09/03/12 03/17/22 Ruchi Valles RN Nurse Clinic Transplant Surgery 07/30/15 documented as of this encounter
--- OUTSIDE RECORDS SUMMARY | 2024-02-14 11:20 | XMS_ITS | Encounter Summary ---
Author Organization [facility] [place] [address] Care Team Providers Care Coal Conveyor Operator Name Role Phone Urbano Denis DO Primary Care Provider Encounter Details Date Type Department Care Team (Latest Contact Info) Description 05/10/2020 7:30 AM EST - 05/10/2020 11:59 PM [facility] Hospital [place] [address] Discharge Disposition: Home Social History Tobacco Use [...] EVERY DAY 90 capsule 1 04/19/2020 10/08/2020 aspirin EC 81 mg Tablet, Delayed Release (E.C.) Take 81 mg by mouth daily. 05/11/2020 atorvastatin (Lipitor) 40 mg TabletIndications:Co ronary artery disease, angina presence unspecified, unspecified vessel or lesion type, unspecified whether [place] or transplanted heart Take 1 tablet by [...] mouth daily. 90 tablet 3 07/29/2019 08/15/2020 apixaban (ELIQUIS) 5 mg TabletIndications:At rial fibrillation with RVR Take 1 tablet by mouth 2 times daily. 180 tablet 3 07/08/2019 05/11/2020 ascorbic acid, vitamin C, (VITAMIN C) 500 mg Tablet Take 1 tablet by mouth 3 times daily. 30 tablet 3 06/25/2016 12/27/2020 documented as of this encounter Procedure Notes * Olga Valencia MD - 05/10/2020 10:30 AM EST NEURODIAGNOSTIC LABORATORY [facility] INTRAOPERATIVE MONITORING REPORT Name: Cody Bolden 1950 Date of Surgery: 05/10/2020 Surgeon(s): Joseph Ang MD, Bobby Raygoza MD Surgical Procedure: Left L4/5 decompression Monitoring Procedure: Intraoperative free-running EMG of the bilateral C8-T1 and L2-S1 innervated muscles of the upper and lower extremities; motor cord monitoring using transcranial motor evoked potentials (tcMEPs) with EMG pickup from aforementioned muscles; sensory cord and brachial plexus monitoring using bilateral ulnar and posterior tibial nerve somatosensory evoked potentials (SSEPs); scalp EEG monitoring; peripheral motor conduction testing using ulnar and posterior tibial nerve stimulation with ipsilateral first dorsal interosseous and abductor hallucis pickup. . CPT Codes: 17757 (EEG); 98692 (EMG 2 limbs); 87599 (EMG anal sphincter); 48223 (upper & lower MEP); 07863 (upper & lower SSEP bilateral); 17417 (IOM, 2 units), 15160 (IOM, 4 units), Total IOMtime: 1 hours, 41 minutes. Intraoperative neurophysiologic monitoring was performed for a total duration of 1 hours and 41 minutes. During this time period, the IOM attending was present in the operating room for a total of 35minutes Clinical History: Patient is a 69 year old male with a history of CAD, NSTEMI status post PCI, A-fib, and immunosuppression for renal transplant with bilateral leg pain from the back down through theposterior thighs. The pain is worsened with sitting and improved with walking. No complaints of numbness or weakness. Lumbar spine MRI is noted to show disc bulging at multiple levels, L4- 5 disc desiccation with disc bulge, moderate central canal stenosis and severe bilateral recess stenosis in addition to L5-S1 loss of disc height and disc bulge. Monitoring Team: Olga Valencia MD; Jolly Dennison EEG/EP T., [facility], [facility]; Servando Alexandre PhD, [facility] Anesthesia: Propofol/opioid, with no muscle relaxant after intubation Report: Following anesthesia and prior to surgical incision, surface needle electrode pairs were placed bilaterally in the first dorsal interosseous, adductor longus vs iliopsoas, vastus lateralis, tibialis anterior, gastrocnemius, abductor hallucis and anal sphincter muscles. Surface needle electrodes were also placed at appropriate locations on the scalp to record cortical SSEPs from stimulation leads placed bilaterally over the posterior tibial and ulnar nerves. Stimulating electrodes were placed atscalp locations C1 and C2 to elicit tcMEPs in the aforementioned muscles. Counts were kept of all needles and other items attached to the patient for monitoring, and all were accounted for and disposed of at the conclusion of the surgery. At baseline and prior to surgical incision, reproducible cortical SSEPs within normal limits were obtained from the right upper and bilateral lower extremities. Median nerve stimulation electrodes were added to the left arm and stimulation of the left median nerve elicited reproducible cortical SSEPs. Concurrently, tcMEPs were elicited from all monitored muscles with lower amplitude responses seen in the right-sided muscles. Baseline peripheral motor conduction testing indicated adequate peripheral conduction and validated subsequent EMG-based monitoring. SSEPs and tcMEPs were consistent withbaseline recordings throughout the procedure. The spontaneous EMG was quiet at baseline and throughclosing. The EEG was typical throughout for the type of anesthesia used. Impression: During this procedure, the cortical SSEPs and tcMEPs remained stable. These findings suggest that asignificant persistent neurological deficit as a result of this procedure would be unlikely. Olga Valencia MD CC: Joseph Ang MD documented in this encounter Plan of Treatment Upcoming Encounters Date Type Department Care Team (Late st Contact Info) Description 04/15/2024 10:00 AM EDT Hospital Encounter [place] [address] Arrived documented as of this encounter Goals Goal Patient Goal Type Associated Problems Recent Progress Patient-Stated? Author Home Medication Compliance and Understanding Patient Facing Action Plan On track( 017 10:41 AM EDT) No Blayne, Selena M, [facility] Note: Patient Goal: Clear hepatitis C Timeframe to meet goal: within 12 weeks of therapy documented as of this encounter Visit Diagnoses Not on filedocumented in this encounter Care Teams Coal Conveyor Operator Relationship Specialty Start Date End Date Urbano Denis DO [address] [place] [address] PCP - General 09/03/12 03/17/22 Ruchi Valles RN Nurse Clinic Transplant Surgery 07/30/15 documented as of this encounter
--- OUTSIDE RECORDS SUMMARY | 2024-02-14 11:20 | XMS_ITS | Encounter Summary ---
Author Organization [facility] [place] [address] Care Team Providers Care Auto Seat Cover Installer Name Role Phone Adeel Urbano KIRBY Primary Care Provider Encounter Details Date Type Department Care Team (Late st Contact Info) Description 06/15/2020 Orders [place] [phone] Layla Pond RN Spinal stenosis of lumbar region, unspecified whether [...] Encounter Non-Invasive [place] [phone] Arrived documented as of this encounter Goals [...] present documented in this encounter Care Teams Auto Seat Cover Installer Relationship Specialty Start Date End Date Urbano Denis DO [address] [place] [address] PCP - General 09/03/12 03/17/22 Ruchi Valles RN Nurse Clinic Transplant Surgery 07/30/15 documented as of this encounter
--- OUTSIDE RECORDS SUMMARY | 2024-02-14 11:20 | XMS_ITS | Encounter Summary ---
Author Organization [facility] [place] [address] Care Team Providers Care Celery Packer Name Role Phone Adeel Urbano KIRBY Primary Care Provider Encounter Details Date Type Department Care Team (Late st Contact Info) Description 03/27/2020 Orders [place] [phone] Joseph Ang MD [facility] [place] [address] Spinal stenosis of lumbar region, unspecified whether neurogenic claudication present (Primary Dx) Social History Tobacco Use Types [...] AM EDT Hospital Encounter Non[place] [phone] Arrived documented as of this encounter Goals Goal Patient Goal Type Associated Problems Recent Progress Patient-Stated? Author [facility] Medication Compliance and Understanding Patient Facing Action Plan On track( 017 10:41 AM EDT) Selena Scott, [facility] Note: Patient Goal: Clear hepatitis C Timeframe to meet goal: within 12 weeks of therapy documented as of this encounter Results * (ABNORMAL) Urinalysis with reflex Culture (04/11/2020 2:50 PM EDT) Glucose, Urine Dipstick Negative Negative mg/dL [facility] Protein, Urine Dipstick 100(A) Negative mg/dL [facility] Bilirubin, Urine Dipstick Negative Negative mg/dL [facility] Comment: Clinical correlation required for positive Urine Bilirubin results as false positive may occur with some drugs and drug related products. If a false positive is suspected a serum total bilirubin should be considered if clinically indicated. Urobilinogen, Urine Dipstick Normal Normal mg/dL [facility] pH, Urn (dipstick) 6.5 5.0 - 8.0 [facility] Blood, Urine Dipstick Negative Negative mg/dL [facility] Ketone, Urine Dipstick Negative Negative mg/dL [facility] Nitrite, Urine Dipstick Negative Negative [facility] Leukocytes, Urine Dipstick Negative Negative mcL [facility] Appearance, Urine Dipstick Clear Clear [facility] Specific Orange Urine Automated 1.019 1.006 - 1.030 [facility] Color, Urine Dipstick Yellow Yellow [facility] Reflex to Culture No [facility] Urine specimen obtained by clean catch procedure (specimen) 04/11/2020 2:50 PM EDT 04/11/2020 3:16 PM EDT Narrative Resulting Agency Comment Spec In Lab Joseph Ang MD URINE ORDERABLES [facility] [place] [address] * APTT (04/11/2020 2:45 PM EDT) Partial Thromboplastin Time 32 25 - 37 sec [facility] Comment: The PTT is NOT appropriate for heparin monitoring. Use the Anti-Xa level for heparin monitoring (HEP UFH) or LMWH monitoring (HEP LMW). A PTT less than 37 seconds generally indicates adequate hemostasis. Blood specimen (specimen) 04/11/2020 2:45 PM EDT 04/11/2020 3:18 PM EDT Narrative Resulting Agency Comment Spec In Lab Joseph Ang MD HEMATOLOGY ORDERABLE S Performing Organization Address [facility] de Phone Number [facility] [place] [address] * (ABNORMAL) Prothrombin Time (04/11/2020 2:45 PM EDT) Prothrombin Time 13.9(H) 9.4 - 12.5 sec [facility] International Normalization Ratio 1.2 [facility] Comment: An INR <2.0 indicates [...] MD HEMATOLOGY ORDERABLE S Performing Organization Address [facility] Co de Phone Number [facility] [place] [address] * (ABNORMAL) Creatinine (04/11/2020 2:45 PM EDT) Creatinine 1.22 0.80 - 1.50 mg/dL [facility] Est Glomerular Filtration Rate 59(L) >=60 mL/min/1.7 3 m?? [facility] Comment: The eGFR was calculated using the CKD-EPI equation. As with all creatinine based estimates of kidney function, eGFR values calculated with the CKD-EPI equation are not accurate in patients with acute kidney failure, extremes of body mass or the acutely ill. [email or web address] eGFR 69 >=60 mL/min/1.7 3 m?? [facility] Comment: The eGFR was calculated using the CKD-EPI equation. As with all creatinine based estimates of kidney function, eGFR values calculated with the CKD-EPI equation are not accurate in patients with acute kidney failure, extremes of body mass or the acutely ill. [email or web address] Blood specimen (specimen) 04/11/2020 2:45 PM EDT 04/11/2020 3:18 PM EDT Narrative Resulting Agency Comment Spec In Lab Joseph Ang MD CHEMISTRY ORDERABLES Performing Organization Address [facility] Co de Phone Number [facility] [place] [address] * BUN (04/11/2020 2:45 PM EDT) Blood Urea Nitrogen 16 10 - 20 mg/dL [facility] Blood specimen (specimen) 04/11/2020 2:45 PM EDT 04/11/2020 3:18 PM EDT Narrative Resulting Agency Comment Spec In Lab Joseph Ang MD CHEMISTRY ORDERABLES Performing Organization Address [facility] Co de Phone Number [facility] [place] [address] * (ABNORMAL) Electrolytes panel (04/11/2020 2:45 PM EDT) Sodium 138 135 - 145 mmol/L [facility] Potassium 3.4(L) 3.5 - 5.0 mmol/L [facility] Comment: Please note: ??Patients with WBC >100,000 may have falsely elevated Potassium levels. ??For accurate Potassium quantification in these patients send serum separator tube (gold top) for subsequent determinations. ??Contact the Clinical Chemistry Laboratory if there are any questions. Chloride 99 98 - 107 mmol/L [facility] Carbon Dioxide 26 22 - 31 mmol/L [facility] Anion Gap 13 5 - 15 mmol/L [facility] Blood specimen (specimen) 04/11/2020 2:45 PM EDT 04/11/2020 3:18 PM EDT Narrative Resulting Agency Comment Spec In Lab Joseph Ang MD CHEMISTRY ORDERABLES [facility] [place] [address] * XR Chest PA & Lateral (Generic) (04/11/2020 11:08 AM EDT) Anatomical Region Laterality Modality Chest N/A Digital Radiogra phy Impressions 04/11/2020 11:54 AM EDT No acute cardiopulmonary process. I have personally reviewed the image(s) and the resident's interpretation and agree with the findings, Nadia Hernandez MD at 04/11/2020 11:54 AM Thank you for letting us participate in the care of this patient. For questions regarding this report, please contact the number below. ? Electronically signed by: Nadia Hernandez MD, [facility] ([phone]), at 04/11/2020 11:54 AM Narrative 04/11/2020 11:54 AM EDT EXAMINATION: XR CHEST PA AND LATERAL (GENERIC) CLINICAL HISTORY: preop TECHNIQUE: PA and lateral views of the chest COMPARISON: None FINDINGS: The lungs are clear. No pleural effusion or pneumothorax. The cardiomediastinal silhouette is unchanged. No acute osseous abnormality. Procedure Note Nadia Hdz MD - 04/11/2020 EXAMINATION: XR CHEST PA AND LATERAL (GENERIC) CLINICAL HISTORY: preop TECHNIQUE: PA and lateral views of the chest COMPARISON: None FINDINGS: The lungs are clear. No pleural effusion or pneumothorax. Thecardiomediastinal silhouette is unchanged. No acute osseous abnormality. IMPRESSION No acute cardiopulmonary process. I have personally reviewed the image(s) and the resident's interpretationand agree with the findings, Nadia Hernandez MD at 04/11/2020 11:54AM Thank you for letting us participate in the care of this patient. Forquestions regarding this report, please contact the number below. Joseph Ang MD IMG DX ORDERABLES * XR Lumbar Spine AP Flexion and Extension Only (04/11/2020 11:08 AM EDT) Anatomical Region Laterality Modality L-spine N/A Digital Radiogra phy Impressions 04/11/2020 2:20 PM EDT Multilevel degenerative disc disease without dynamic instability of the lumbar spine. I have personally reviewed the image(s) and the resident's interpretation and agree with the findings, Jemma Pyle MD at 04/11/2020 2:20 PM Thank you for letting us participate in the care of this patient. For questions regarding this report, please contact the number below. ? Electronically signed by: Jemma Pyle MD, [facility] ([phone]), at 04/11/2020 2:20 PM Narrative 04/11/2020 2:20 PM EDT EXAMINATION: XR LUMBAR SPINE AP FLEXION AND [...] are present at the L4-S1 facet joints. Procedure Note Jemma Pyle MD - 04/11/2020 EXAMINATION: XR LUMBAR SPINE AP FLEXION AND EXTENSION ONLY CLINICAL HISTORY: preop TECHNIQUE: AP, Flexion and extension lateral views of the lumbar spine COMPARISON: MRI lumbar spine 04/28/2019; CT abdomen and pelvis February 07, 2019 FINDINGS: There are 5 nonrib-bearing lumbar vertebra. Vertebral body heights are maintained. No spondylolisthesis. Alignmentis preserved without translation from flexion to extension. Mild intervertebral joint space narrowing with anterior endplateosteophyte formation of the lumbar vertebra. Osteophytes and sclerosis are present atthe L4-S1 facet joints. IMPRESSION Multilevel degenerative disc disease without dynamic instability of thelumbar spine. I have personally reviewed the image(s) and the resident's interpretationand agree with the findings, Jemma Pyle MD at 04/11/2020 2:20 PM Thank you for letting us participate in the care of this patient. Forquestions regarding this report, please contact the number below. Joseph Ang MD IMG DX ORDERABLES documented in this encounter Visit Diagnoses Diagnosis Spinal stenosis of lumbar region, unspecified whether neurogenic claudication present- Primary Spinal stenosis of lumbar region, unspecified whether neurogenic claudication present documented in this encounter Care Teams Celery Packer Relationship Specialty Start Date End Date Urbano Denis DO [address] [place] [address] PCP - General 09/03/12 03/17/22 Ruchi Valles RN Nurse Clinic Transplant Surgery 07/30/15 documented as of this encounter
--- OUTSIDE RECORDS SUMMARY | 2024-02-14 11:20 | XMS_ITS | Encounter Summary ---
Author Organization [facility] Address [facility] [place] [address] Care Team Providers Care District Home Economics Agent Name Role Phone Urbano Denis DO Primary Care Provider Encounter Details Date Type Department Care Team (Latest Contact Info) Description 04/11/2020 10:45 AM EDT - 04/11/2020 11:59 PM EDT Hospital Encounter XRay at [address] [place] [address] Joseph Ang MD [facility] [place] [address] Spinal stenosis of lumbar region, unspecified whether neurogenic claudication present Discharge Disposition: Home Social History Tobacco Use [...] (moderate pain (4-6)). 20 tablet 05/11/2020 10/08/2020 aspirin EC 81 mg Tablet, Delayed Release (E.C.) Take 81 mg by mouth daily. 05/11/2020 atorvastatin (Lipitor) 40 mg TabletIndications:Co ronary artery disease, angina presence unspecified, unspecified vessel or lesion type, unspecified whether [place] or transplanted heart Take 1 tablet by [...] code Z94.0 270 capsule 3 08/30/2019 09/10/2020 calciTRIol (Rocaltrol) 0.5 mcg Capsule TAKE ONE CAPSULE BY MOUTH EVERY DAY 90 capsule 2 07/29/2019 04/18/2020 metoprolol succinate XL (Toprol-XL) 25 mg Tablet [...] AM EDT Hospital Encounter Non-[place] [address] Arrived documented as of this [...] Procedure Name Priority Date/Time Associated Diagnosis Comments XR LUMBAR SPINE AP FLEXION AND EXTENSION ONLY Routine 04/11/2020 11:08 AM EDT Spinal stenosis of lumbar region, unspecified whether neurogenic claudication present XR CHEST PA AND LATERAL Routine 04/11/2020 11:08 AM EDT Spinal stenosis of lumbar region, unspecified whether neurogenic claudication present documented in this encounter Results * XR Chest PA & Lateral (Generic) [...] report, please contact the number below. ? Narrative 04/11/2020 11:54 AM EDT EXAMINATION: XR [...] this report, please contact the number below. Electronically signed by: Nadia Hernandez MD, [facility] ([phone]), at 04/11/2020 11:54 AM Joseph Ang MD IMG DX ORDERABLES * [...] report, please contact the number below. ? Narrative 04/11/2020 2:20 PM EDT EXAMINATION: XR [...] present documented in this encounter Care Teams District Home Economics Agent Relationship Specialty Start Date End Date Urbano Denis DO [address] [place] [address] [address] [place] [address] PCP - General 09/03/12 03/17/22 Ruchi Valles RN Nurse Clinic Transplant Surgery 07/30/15 documented as of this encounter
--- OUTSIDE RECORDS SUMMARY | 2024-02-14 11:20 | XMS_ITS | Encounter Summary ---
[place] [address] Care Team Providers Care Director Reactor Projects Name Role Phone Urbano Denis DO Primary Care Provider [phone] Encounter Details Date Type Department Care Team (Late st Contact Info) Description 04/11/2020 3:00 PM EDT [place] [address] Social History Tobacco Use Types Packs/Day Years [...] AM EDT Hospital Encounter Non-[place] [address] Arrived documented as of this encounter Goals Goal Patient Goal Type Associated Problems Recent Progress Patient-Stated? Author [facility] Medication Compliance and Understanding Patient Facing Action Plan On track( 017 10:41 AM EDT) No Selena Cisneros, [facility] Note: Patient Goal: Clear hepatitis C Timeframe to meet goal: within 12 weeks of therapy documented as of this encounter Visit Diagnoses Not on filedocumented in this encounter Care Teams Director Reactor Projects Relationship Specialty Start Date End Date Urbano Denis DO [address] [place], [place] [address]Y [facility] [address] [place] [address] PCP - General 09/03/12 03/17/22 Ruchi Valles RN Nurse Clinic Transplant Surgery 07/30/15 documented as of this encounter
--- OUTSIDE RECORDS SUMMARY | 2024-02-14 11:20 | XMS_ITS | Encounter Summary ---
[place] [address] Care Team Providers Care Oil And Gas Recruiter Name Role Phone Urbano Denis DO Primary Care Provider Encounter Details Date Type Department Care Team (Late st Contact Info) Description 07/26/2020 Telephone Cardiology at [address] [phone] Anel Proctor, RN Social History Tobacco Use Types Packs/Day [...] Telephone Encounter - Anel Proctor RN - 07/26/2020 12:44 PM EST Return call to patient spouse who is asking that Dr. Brown complete the provider portion of the [employer]-2020 Patient Assistance Application for Eliquis. Would like this mailed to her confirmed home address along with a 1 year Rx for Elqiuis 5 mg one tablet BID. She has no other requests or concerns at this time. Reviewed Dr. Brown's office notes. BMS application - physician page obtained and new Rx prepped. Both signed by Dr. Brown , scanned to patient record for reference and have been put in the mail asrequested. Anel Proctor RN, BSN Ambulatory Cardiology Department documented in this encounter Plan of Treatment Upcoming Encounters Date Type Department Care Team (Late st Contact Info) Description 04/15/2024 10:00 AM EDT Hospital Encounter Non[place] [address] Arrived documented as of this encounter Goals [...] filedocumented in this encounter Care Teams Oil And Gas Recruiter Relationship Specialty Start Date End Date Urbano Denis DO [facility] [address] [place] [address] PCP - General 09/03/12 03/17/22 Ruchi Valles RN Nurse Clinic Transplant Surgery 07/30/15 documented as of this encounter
--- OUTSIDE RECORDS SUMMARY | 2024-02-14 11:20 | XMS_ITS | Encounter Summary ---
Author Organization [facility] [place] [address] Care Team Providers Care Acquisition Marketing Manager Name Role Phone Urbano Denis DO Primary Care Provider Encounter Details Date Type Department Care Team (Late st Contact Info) Description 05/04/2020 [place] [phone] Erica Powers Social History Tobacco Use Types Packs/Day Years [...] encounter Miscellaneous Notes * Telephone Encounter - Erica Powers - 05/04/2020 3:23 PM EDT 1. ASK: TRAVEL ???Have you travelled outside of [place] ([place], [place], [place], [place], [place], [place]) in the past 14 days??? 2. ASK: EXPOSURE Have you been in contact with anyone suspected or confirmed to have COVID-19 in the past 14 days??? 3. ASK: SYMPTOMS Do you have any new or worsening symptoms on this list that are not related to another medical condition? Fever or chills ?? Cough ?? Shortness of breath or difficulty breathing ?? Fatigue ?? Muscle or body aches ?? Headache ?? Loss of taste or smell ?? Sore throat ?? Congestion or runny nose ?? Nausea or vomiting ?? Diarrhea If 'Yes' to any of the questions above Transfer patient to the Covid-19 Hotline Number ([phone]) for further instructions. If 'No' to all of the questions above Is this the first test for Covid 19 Yes If no, please list date of previous test, result, and type of test (Molecular, Antigen, Antibody orunknown): Resides in longterm, snf or other residential facility No Employee or Household Member of Employee No Healthcare Worker No Schedule appointment: Give directions to testing facility. Please advise patient that all passengers in the vehicle must wear a mask and to please either leave their dogs at home or have them crated/behind a net. Telephone call placed/received to schedule Covid 19 testing with patient. Ordering provider: Dr Ang Testing Facility: [facility] Date of Testin/2 Time of Testin:00am Symptoms: no documented in this encounter Plan of Treatment Upcoming Encounters Date Type Department Care Team (Late st Contact Info) Description 04/15/2024 10:00 AM EDT Hospital Encounter Non-Invasive [place] [address] Arrived documented as of this encounter Goals Goal Patient Goal Type Associated Problems Recent Progress Patient-Stated? Author [facility] Medication Compliance and Understanding Patient Facing Action Plan On track( 017 10:41 AM EDT) No Selena Cisneros, [facility] Note: Patient Goal: Clear hepatitis C Timeframe to meet goal: within 12 weeks of therapy documented as of this encounter Visit Diagnoses Not on filedocumented in this encounter Care Teams Acquisition Marketing Manager Relationship Specialty Start Date End Date Urbano Denis DO [address] [place] [address] PCP - General 09/03/12 03/17/22 Ruchi Valles RN Nurse Clinic Transplant Surgery 07/30/15 documented as of this encounter
--- OUTSIDE RECORDS SUMMARY | 2024-02-14 11:20 | XMS_ITS | Encounter Summary ---
[facility] [place] [address] Care Team Providers Care Road Mixer Operator Name Role Phone Adeel Urbano KIRBY Primary Care Provider [phone] Reason for Visit * Reason Comments Medication Refill Encounter Details Date Type Department Care Team (Late st Contact Info) Description 08/14/2020 Refill Cardiology at [address] [phone] Byron Brown MD [facility] [place] [address] Medication Refill Social History Tobacco Use Types [...] AM EDT Hospital Encounter Non-Invasive [place] [phone] Arrived documented as of this encounter Goals Goal Patient Goal Type Associated Problems Recent Progress Patient-Stated? Author [facility] Medication Compliance and Understanding Patient Facing Action Plan On track( 017 10:41 AM EDT) Selena Scott, [facility] Note: Patient Goal: Clear hepatitis C Timeframe to meet goal: within 12 weeks of therapy documented as of this encounter Visit Diagnoses Diagnosis Atrial fibrillation with RVR - had flutter initially, then fib Atrial fibrillation documented in this encounter Care Teams Road Mixer Operator Relationship Specialty Start Date End Date Urbano Denis DO [address] [place] [address] [address] [place] [address] PCP - General 09/03/12 03/17/22 Ruchi Valles RN Nurse Clinic Transplant Surgery 07/30/15 documented as of this encounter
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
--- OUTSIDE RECORDS SUMMARY | 2024-02-14 11:20 | XMS_ITS | Encounter Summary ---
Author Organization [facility] [place] [address] Care Team Providers Care Acquisition Lead Name Role Phone Adeel Urbano KIRBY Primary Care Provider [phone] Reason for Visit * Reason Comments Medication Refill Encounter Details Date Type Department Care Team (Late st Contact Info) Description 08/12/2020 Refill [place] [address] Tal Eagle MD [facility] [place] [address] Social History Tobacco Use Types Packs/Day Years [...] AM EDT Hospital Encounter [place] [address] Arrived documented as of this encounter Goals Goal Patient Goal Type Associated Problems Recent Progress Patient-Stated? Author Home Medication Compliance and Understanding Patient Facing Action Plan On track( 017 10:41 AM EDT) Selena Scott, [facility] Note: Patient Goal: Clear hepatitis C Timeframe to meet goal: within 12 weeks of therapy documented as of this encounter Visit Diagnoses Not on filedocumented in this encounter Care Teams Acquisition Lead Relationship Specialty Start Date End Date Urbano Denis DO [address] [place] [address] PCP - General 09/03/12 03/17/22 Ruchi Valles RN Nurse Clinic Transplant Surgery 07/30/15 documented as of this encounter
--- OUTSIDE RECORDS SUMMARY | 2024-02-14 11:20 | XMS_ITS | Encounter Summary ---
[place] [address] Care Team Providers Care Coloring Machine Operator Name Role Phone Adeel Urbano KIRBY Primary Care Provider Encounter Details Date Type Department Care Team (Late st Contact Info) Description 08/14/2020 Notes Only [place] [address] Anabella Bright Social History Tobacco Use Types [...] encounter Progress Notes * Anabella Bright - 08/14/2020 2:56 PM EST PA Needed: Medication: K-Phos Insurance: [employer] Phone: Stonemason Apprentice: Via CoverMyMeds Reference #: N/a Outcome: Denied - Excluded from Coverage under Medicare law documented in this encounter Plan of Treatment Upcoming Encounters Date Type Department Care Team (Late st Contact Info) Description 04/15/2024 10:00 AM EDT Hospital Encounter Non-Invasive [place] [place] [address] Arrived documented as of this encounter Goals Goal Patient Goal Type Associated Problems Recent Progress Patient-Stated? Author DH Home Medication Compliance and Understanding Patient Facing Action Plan On track( 017 10:41 AM EDT) Selena Scott, [facility] Note: Patient Goal: Clear hepatitis C Timeframe to meet goal: within 12 weeks of therapy documented as of this encounter Visit Diagnoses Not on filedocumented in this encounter Care Teams Coloring Machine Operator Relationship Specialty Start Date End Date Urbano Denis DO [address] [place] [address] [address] [place] [address] PCP - General 09/03/12 03/17/22 Ruchi Valles RN Nurse Clinic Transplant Surgery 07/30/15 documented as of this encounter
--- OUTSIDE RECORDS SUMMARY | 2024-02-14 11:20 | XMS_ITS | Encounter Summary ---
Author Organization [facility] [place] [address] Care Team Providers Care Sales Floor Associate Name Role Phone Adeel Urbano KIRBY Primary Care Provider [phone] Encounter Details Date Type Department Care Team (Late st Contact Info) Description 06/18/2020 [place] [phone] Layla Pond RN Spinal stenosis of lumbar [...] AM EDT Hospital Encounter [place] [phone] Arrived documented as of this encounter Goals Goal Patient Goal Type Associated Problems Recent Progress Patient-Stated? Author [facility] Medication Compliance and Understanding Patient Facing Action Plan On track( 017 10:41 AM EDT) No Selena Cisneros, [facility] Note: Patient Goal: Clear hepatitis C Timeframe to meet goal: within 12 weeks of therapy documented as of this encounter Visit Diagnoses Diagnosis Spinal stenosis of lumbar region, unspecified whether neurogenic claudication present documented in this encounter Care Teams Sales Floor Associate Relationship Specialty Start Date End Date Urbano Denis DO [address] [place] [address] PCP - General 09/03/12 03/17/22 Ruchi Valles RN Nurse Clinic Transplant Surgery 07/30/15 documented as of this encounter
--- OUTSIDE RECORDS SUMMARY | 2024-02-14 11:20 | XMS_ITS | Encounter Summary ---
Author Organization [facility] Address [facility] [place] [address] Care Team Providers Care Pt Escort Name Role Phone Urbano Denis DO Primary Care Provider [phone] Reason for Visit * Reason Comments Advice Only s/p discuss surgery - lumbar decompression Encounter Details Date Type Department Care Team (Late st Contact Info) Description 04/11/2020 12:30 PM EDT [place] [address] Joseph Ang MD [facility] [place] [place] [address] Spinal stenosis of lumbar region, unspecified whether [...] Sign Reading Time Taken Comments Blood Pressure 132/72 04/11/2020 11:58 AM EDT Pulse 55 04/11/2020 11:58 AM EDT Temperature - - Respiratory Rate - - Oxygen Saturation - - Inhaled Oxygen Concentration - - Weight - - Height - - Body Mass Index - - documented in this encounter Progress Notes * Joseph Ang MD - 04/11/2020 12:30 PM EDT Images from the original note were not included. Neurosurgery Pre-operative H&P 04/19/2020 Cody Bolden [id number] CC: Preop discussion - reschedule from [facility] for left L45 MIS decompression HPI: Cody Bolden is a 69 y.o. male presents for continued discussion regarding Dr. Brennanlanned procedure for left L45 decompression. Previous Telehealth Visit Reviewed (Mark Torres 03/27/2020): Thank you for referring your patient Cody Bolden to the Neurosurgery Clinic at [facility] for evaluation of lumbar spinal stenosis. As you know, Mr. Bolden is a pleasant 69 y.o. male who was set to undergo L4-[address] Bradford [facility] and complexity of care given cardiac history (CAD, h/o NSTEMI, s/p PCI,A-fib, on OAC, and ASA) and immunosuppression for renal transplant. He reports a history of bilateral leg pain from the back down the buttocks to the posterior thighs not going beyond the knees. Sitting exacerbates his pain, as does rising from a seated position. Walking helps his pain. He denies weakness and numbness. He reports his gait is shuffling. ?? Medical therapies attempted: Tylenol marijuana ?? Physical therapies attempted: None ?? Interventional therapies attempted: None And previous entry from [facility] (Alicia Chakraborty) 05/30/2019 SUBJECTIVE: Cody Bolden is a 68 y.o. year old male being seen at the request of Sonu Vanegas with a chief complaint of left leg pain. Patient states his left leg pain began with no clear incident injury approximately 1 year ago and his pain tends to be aggravated at times in the evening with occasional sleep disruptions potentially lays on his left side. He describes his pain is being left buttockleft lateral thigh left lateral lower leg ending before the ankle. He denies numbness in the left lower extremity and weakness on either lower extremity does complain of numbness to the anterior portion of his right foot. Prior treatments have included acetaminophen on clearance helpfulness, superficial heat potentiallyhelpful. Review of systems is negative constitutional, GI, symptoms with the exception of for which she has had a kidney transplant and he describes occasional urinary urgency with intermittent occasional small bouts of incontinence. 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 Past medical history is extensive and well documented in his problem list including DM, [place] this February and received a stent, and as Gilbert noted he has had a kidney transplant and is on long-term immunosuppression. He is also had 2 orthopedic surgeries including his shoulder and knee that he states he had while on immunosuppression. OBJECTIVE: On examination the patient's affect is bright, his speech is in good time to the point, and he responds fairly well to questions and direction although does take some reinforcement with direction during physical exam. He stands with a slightly flexed lumbar posture and level hips he is nontender the midline or bilateral paraspinals or over the trochanteric bursa on the left. Lumbar ROM is 55 degrees of flexion and neutral with extension neither which aggravate pain. He walks with a steady gait,and is able to Toe Walk and Heel Walk. Motor exam is 5/5 strength of all lower extremity muscle groups bilaterally. Sensation is intact in all dermatomes of bilateral lower extremities. Reflexes are trace at the knees, 0 to ankles. There is no clonus or Babinski. Hip ROM and straight leg raise exams are negative. Lumbar spine MRI of 04/28/2019 is reviewed. There is disc desiccation and disc bulge at multiple levels. At L4-5 there is disc desiccation with disc bulge and advanced bilateral facet arthropathy that results in moderate central canal stenosis and severe bilateral recess stenosis. There appears to be the traversing L5 nerve root contact at this level left greater than right. At L5-S1 there is significant disc height loss with disc bulge and facet arthropathy. There is alsomoderate bilateral foraminal stenosis at this level. These images were reviewed with the patient. ASSESSMENT: This is a 68 y.o. year old male with 1 year of left leg radiculopathy in a possible L5 distributionin the setting of lumbar spondylosis with lateral recess stenosis at L4-5 and apparent contact of the traversing L5 nerve root in the lateral recess which I believe is the most likely etiology for his leg pain. He does have foraminal stenosis at L5-S1 however I suspect that the lateral recess stenosis at L4-5 is the more likely etiology for his leg pain. I reviewed treatment options with the patient and after discussed the various treatment options we mutually agreed to proceed as outlined below. ?? PLAN: 1/I did offer spine specially physical therapy but given the patient's long commute I provided him with a physical therapy order and suggested he ask his PCP for physical therapy recommendation closeto home. 2/electric heating pad 30 minutes twice a day for 2 weeks to the buttock and proximal left thigh. 3/if after few weeks as above the patient fails to realize adequate relief I encouraged him to callthe spine center and speak to nursing staff at which time we would consider lumbar epidural steroidinjection. I explained to the patient that we would need to get his bear keeper's approval to holdapixaban prior to injection and also confirm that his PCP would do agree with LESI while the patient is on immunosuppression. The patient is wishing to pursue LESI I would be happy to discuss his case with 1 of our pain attendings. 4/if the above failed to provide adequate relief I did explain to the patient that surgery may be an option but both his apixaban use status post [place] with stent and he is chronic immunosuppression would need to be addressed with respect risks balanced against the potential benefits of surgery.: PMH/PSH: Past Medical History: Diagnosis Date ??? [...] EXTREMITY performed by Que Amaro MD at [facility] OR ??? PRO CYSTOURETHROSCOPY, URETER CATHETER Left 06/17/2018 CYSTO, RETROGRADE, URETEROPYELOGRAPHY (WRVU 2.37) performed by Edinson Grider III, [facility] PRO REIMPLANT URETER, SINGLE URETER Left [...] Left 01/31/2019 US Renal Transplant Left 01/31/2019 [facility] RAD ULTRASOUND ??? US RENAL TRANSPLANT LEFT Left 02/07/2019 US Renal Transplant Left 02/07/2019 [facility] RAD ULTRASOUND Medications: Current Outpatient Medications on File Prior to Visit Medication Sig Dispense Refill ??? aspirin EC 81 mg Tablet, Delayed Release (E.C.) Take 81 mg by mouth daily. ??? atorvastatin (Lipitor) 40 mg Tablet Take [...] dx code Z94.0 270 capsule 3 ??? calciTRIol (Rocaltrol) 0.5 mcg Capsule TAKE ONE CAPSULE BY MOUTH EVERY DAY 90 capsule 2 ??? metoprolol succinate XL (Toprol-XL) 25 mg Tablet Sustained Release 24 hr Take 1 tablet by mouthdaily. 90 tablet 3 ??? apixaban (ELIQUIS) 5 mg [...] mouth 3 times daily. 30 tablet 3 No current facility-administered medications on file prior to visit. Allergies: NKDA Family Hx: Reviewed, noncontributory Social [...] urinary incontinence. Physical Exam: Vital Signs: BP 132/72 Pulse 55 General: NAD CVS: RRR Resp: CTAB HEENT: [...] Power: Segment Muscle Action Right Left C5 Deltoid Shoulder Abduction 5 5 C6 Biceps Elbow flexion 5 5 C6 Extensor carpi radialis Wrist extension 5 5 C7 Triceps Elbow extension 5 5 C8 Finger flexors Grasp 5 5 T1 Interossei Finger abduction 5 5 L2 Iliopsoas Hip flexion 5 5 L3 Quadriceps Knee extension 5 5 L4 Tibialis anterior Dorsiflexion 5 4+ L5 Extensor hallucis Great toe extension 5 5 S1 Gastrocnemius Plantar flexion 5 5 Reflexes: Reflex Right Left Biceps 1 1 Triceps 1 1 BR 1 1 Patellar 1 1 Ankle Jerk 0 0 Plantar response Downgoing Downgoing Sensation in the extremities: Light touch: Intact x 4 Cerebellar exam: Dysmetria: None Dysdiadochokinesia Gait: Not assessed Labs EKG CXR: - sent to [facility] Imaging: Assessment and Plan: At the conclusion of our visit I discussed the risks and benefits of proceeding with MIS Left L45 Decompression (originally scheduled at [facility] with Dr. Maddox but defered by anesthesia). I discussed the risks, benefits, and alternatives including surgical versus non- surgical management. The patient understands that surgery is not the only option available and I tried to provide a likely scenario for non-surgical management. I discussed the surgical options in detail, including reviewing a typical intraoperative course, post-operative issues and projected recovery time. I also reviewed the contents of our consent form and the specific risks and possible complications that may develop in pursuing an operative course. I reviewed that we would sign the consent form prior to the surgery. I explained that I could not guarantee a particular outcome, but that I would attempt to affect a surgical solution to the current problem. I answered pertinent questions to their satisfaction. The patient would like to proceed with surgery and we will proceed scheduling. I spent 30 minutes of this 40 minute encounter in face to face contact counseling the patient regarding treatment options and addressing specific questions. At the conclusion of our discussion they indicated that they had no further questions at this time. Joseph Ang MD MS Professor and Chair Section of Neurosurgery Department of Surgery [facility] documented in this encounter Plan of Treatment Upcoming Encounters Date Type Department Care Team (Late st Contact Info) Description 04/15/2024 10:00 AM EDT Hospital Encounter Non-Invasive Cardiology Lab [facility] [place] [address] Arrived documented as of this encounter Goals [...] present documented in this encounter Care Teams Pt Escort Relationship Specialty Start Date End Date Urbano Denis DO [address] [place] [address] [address] [facility] [place] [address] PCP - General 09/03/12 03/17/22 Ruchi Valles RN Nurse Clinic Transplant Surgery 07/30/15 documented as of this encounter
--- OUTSIDE RECORDS SUMMARY | 2024-02-14 11:21 | XMS_ITS | Encounter Summary ---
[place] [address] Care Team Providers Care Brewmaster Name Role Phone Urbano Denis DO Primary Care Provider [phone] Encounter Details Date Type Department Care Team (Late st Contact Info) Description 04/28/2019 Ancillary Procedure [place] [address] Urbano Denis DO [address] [place] [address] Social History Tobacco Use Types Packs/Day Years [...] AM EDT Hospital Encounter Non-[place]vasive [place] [phone] Arrived documented as of this encounter Goals Goal Patient Goal Type Associated Problems Recent Progress Patient-Stated? Author [facility] Medication Compliance and Understanding Patient Facing Action Plan On track( 017 10:41 AM EDT) No Blayne, Selena M, [facility] Note: Patient Goal: Clear hepatitis C Timeframe to meet goal: within 12 weeks of therapy documented as of this encounter Procedures Procedure Name Priority Date/Time Associated Diagnosis Comments FILM LIBRARY STORAGE ONLY MR SPINE Routine 04/28/2019 12:00 AM EDT documented in this encounter Results * Film Library- Storage Only MR Spine (04/28/2019 12:00 AM EDT) Narrative [facility] - 05/09/2019 10:10 PM EST This exam is auto-finalizing. It's purpose is for storage only. Urbano Denis DO IM FILM LIBRARY ORD ERABLES [place], [place] documented in this encounter Visit Diagnoses Not on filedocumented in this encounter Care Teams Brewmaster Relationship Specialty Start Date End Date Urbano Denis DO [address] [place] [address] [address] [place] [address] PCP - General 09/03/12 03/17/22 Ruchi Valles RN Nurse Clinic Transplant Surgery 07/30/15 documented as of this encounter
--- OUTSIDE RECORDS SUMMARY | 2024-02-14 11:21 | XMS_ITS | Encounter Summary ---
[place] [address] Care Team Providers Care Plastic Design Applier Name Role Phone AdeelUrbano toscano Primary Care Provider Reason for Visit * Reason Onset Date Comments Medication Refill 07/12/2019 Encounter Details Date Type Department Care Team (Late st Contact Info) Description 07/12/2019 Refill [place] [phone] Viviana Coon LPN Social History Tobacco Use Types Packs/Day Years [...] AM EDT Hospital Encounter Non-[place] [phone] Arrived documented as of this encounter Goals Goal Patient Goal Type Associated Problems Recent Progress Patient-Stated? Author [facility] Medication Compliance and Understanding Patient Facing Action Plan On track( 017 10:41 AM EDT) No Selena Cisneros, [facility] Note: Patient Goal: Clear hepatitis C Timeframe to meet goal: within 12 weeks of therapy documented as of this encounter Visit Diagnoses Not on filedocumented in this encounter Care Teams Plastic Design Applier Relationship Specialty Start Date End Date Urbano Denis DO [address] [place] [address] PCP - General 09/03/12 03/17/22 uRchi Valles RN Nurse Clinic Transplant Surgery 07/30/15 documented as of this encounter
--- OUTSIDE RECORDS SUMMARY | 2024-02-14 11:21 | XMS_ITS | Encounter Summary ---
Author Organization [facility] Address [facility] [place] [address] Care Team Providers Care Hardwood Flooring Specialist Name Role Phone Urbano Denis DO Primary Care Provider [phone] Encounter Details Date Type Department Care Team (Late st Contact Info) Description 02/17/2020 2:20 PM EDT Office Visit Cardiology at [address] [address] Naif Garibay MD [facility] [address] Coronary artery disease involving [place] heart, angina presence unspecified, unspecified vessel or lesion type; Atrial fibrillation with RVR - had flutter initially, then fib; Coronary artery disease, angina presence unspecified, unspecified vessel or lesion type, unspecified whether [place] or transplanted heart; Hypertension secondary to other renal disorders Social [...] Sign Reading Time Taken Comments Blood Pressure 145/69 02/17/2020 2:02 PM EDT Pulse 52 02/17/2020 2:02 PM EDT Temperature - - Respiratory Rate 20 02/17/2020 2:02 PM EDT Oxygen Saturation 98% 02/17/2020 2:02 PM EDT Inhaled Oxygen Concentration - - Weight 99.9 kg (220 lb 3.2 oz) 02/17/2020 2:02 P M EDT Height 180.3 cm (5' 11) 02/17/2020 2:02 PM EDT Body Mass Index 30.71 02/17/2020 2:02 PM EDT documented in this encounter Progress Notes * Naif Garibay MD - 02/17/2020 2:20 PM EDT Images from the original note were not included. Formerly [facility] [place] [address] Subjective: Patient ID: Cody Bolden is a 69 y.o. male. Patient for Dr Brown, last seen by telemedicine in11/2019. He now is here for cardiovascular exam before back surgery at [facility]. Patient Active Problem List Diagnosis ??? CAD [...] biplane MOD, estimated 40-50%, with SWMA. ??? H/O kidney transplant ??? Atrial fibrillation with RVR - had flutter initially, then fib ??? Type 2 diabetes mellitus with complication, without long-term current use of insulin ??? Essential hypertension Overview: ICD10 Update Auto Replacement ??? Left leg pain ??? Hydronephrosis ??? S/P R TKA 11/25/17 Dr. Dale ??? Obesity (BMI 30.0-34.9) ??? Debility ??? Pain of right lower extremity ??? Vitamin D deficiency ??? 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 CAH (chronic active hepatitis) ??? Immunosuppression ??? Weight increase ??? Sepsis ??? Encounter for long-term (current) use of [...] ??? DJD (degenerative joint disease) ??? Hematuria Patient has not had any angina or SOB. He does not check his BP at home even though he has a BP monitor next to his bed. On last visit with his PCP his BP was 135/72. 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 He uses his pushmower. Review of Systems No flowsheet data found. Family History Problem Relation Age of Onset ??? Chronic Obstructive Pulmonary Disease Mother ??? Arrhythmia Mother ??? Heart Disease Father Social History Social History Narrative ??? Not on file Social History Tobacco Use ??? Smoking status: Current Some Day Smoker Types: Cigars Last attempt to quit: 01/02/2015 Years since quittin.1 ??? Smokeless tobacco: Never Used ??? Tobacco comment: cigars, one weekly Substance Use Topics ??? Alcohol use: No Outpatient Medications Marked as Taking for the 02/17/20 encounter (Office Visit) with Naif Garibay MD Medication Sig Dispense Refill ??? atorvastatin (Lipitor) [...] mouth 3 times daily. 30 tablet 3 Objective: BP 145/69 (BP Location (NBP): Right arm, Patient Position: Sitting, BP Cuff Sizes: Large Adult (32-43 cm)) Pulse 52 Resp 20 Ht 180.3 cm (5' 11) Wt 99.9 kg (220 lb 3.2 oz) SpO2 98% BMI 30.71 kg/m?? Physical Exam Constitutional: He is oriented to person, place, and time. He appears well- developed and well-nourished. HENT: Head: Normocephalic and atraumatic. Eyes: No scleral icterus. Neck: No JVD present. Cardiovascular: Regular rhythm. Bradycardia present. Murmur heard. Medium-pitched midsystolic murmur is present with a grade of 2/6 at the upper right sternal border. High-pitched blowing decrescendo early diastolic murmur is present with a grade of 1/6 at the upperright sternal border. Pulmonary/Chest: Effort normal and breath sounds normal. Musculoskeletal: General: No edema. Neurological: He is alert and oriented to person, place, and time. Skin: Skin is warm and dry. Psychiatric: He has a normal mood and affect. His behavior is normal. Recent Results (from the past 72 hour(s)) EKG 12 Lead Result Value Ref Range Ventricular rate 51 BPM Atrial Rate 51 BPM P-R Interval 200 ms QRS Duration 120 ms Q-T Interval 472 ms QTC Calculated (Bezet) 435 ms Calculated P [place] 49 degrees Calculated [place] -65 degrees Calculated [place] -5 degrees INTERPRETATION Sinus bradycardia Left anterior fascicular block Left ventricular hypertrophy with QRS widening Abnormal ECG When compared with ECG of 31-MAR-2019 13:58, No significant change was found Assessment and Plan: Hypertension Have recommended to start checking his BP at home. If usually 130 or more on home measurements, would increase amlodipine to 5 mg to be taken at night. Have suggested to follow up with Dr Brown or his PCP in this regard, could be by telephone office visit in a month or so. Atrial fibrillation with RVR - had flutter initially, then fib In SR today, pt should stop his apixaban 2 days prior to surgery (or whatever Dr Bradford advises). His reduced LVEF likely at least in part was related to tachymyopathy. Pt is not on ARB as discussed by Dr Brown in his last note, but at this point does not have clinical CHF (and his LVEF had improved after aflutter episode). CAD (coronary artery disease) Pt his doing well, no angina, no CHF sympoms, good exertional tolerance however somewhat limited byleg pain from his spine. No further studies needed prior to back surgery. In view of his known CAD and s/p PCI, would advise to continue ASA 81 mg/day without stopping for back surgery to lower risk of periop PA or stent thrombosis. 25 minutes of this 40 minute visit were spent discussing with the patient the issues above. documented in this encounter Miscellaneous Notes * Assessment & Plan Note - Naif Garibay MD - 02/17/2020 2:53 PM EDTAssociated Problem(s): CAD (coronary artery disease) Pt his doing well, no angina, no CHF sympoms, good exertional tolerance however somewhat limited byleg pain from his spine. No further studies needed prior to back surgery. In view of his known CAD and s/p PCI, would advise to continue ASA 81 mg/day without stopping for back surgery to lower risk of periop PA or stent thrombosis. * Assessment & Plan Note - Naif Garibay MD - 02/17/2020 2:51 PM EDTAssociated Problem(s): Atrial fibrillation with RVR - had flutter initially, then fib In SR today, pt should stop his apixaban 2 days prior to surgery (or whatever Dr Bradford advises). His reduced LVEF likely at least in part was related to tachymyopathy. Pt is not on ARB as discussed by Dr Brown in his last note, but at this point does not have clinical CHF (and his LVEF had improved after aflutter episode). * Assessment & Plan Note - Naif Garibay MD - 02/17/2020 2:49 PM EDTAssociated Problem(s): Hypertension Have recommended to start checking his BP at home. If usually 130 or more on home measurements, would increase amlodipine to 5 mg to be taken at night. Have suggested to follow up with Dr Brown or his PCP in this regard, could be by telephone office visit in a month or so. documented in this encounter Plan of Treatment Upcoming Encounters Date Type Department Care Team (Late st Contact Info) Description 04/15/2024 10:00 AM EDT Hospital Encounter [place] [address] Arrived documented as of this encounter Goals [...] Date/Time Associated Diagnosis Comments EKG 12-LEAD Routine 02/17/2020 2:13 PM EDT Atrial fibrillation with RVR - had flutter initially, then fib Coronary artery disease, angina presence unspecified, unspecified vessel or lesion type, unspecified whether [place] or transplanted heart documented in this encounter Results * EKG 12 Lead (02/17/2020 2:13 PM EDT) Ventricular rate 51 BPM MUSE SYSTEM Atrial Rate 51 BPM MUSE SYSTEM P-R Interval 200 ms MUSE SYSTEM QRS Duration 120 ms MUSE SYSTEM Q-T Interval 472 ms MUSE SYSTEM QTC Calculated (Bezet) 435 ms MUSE SYSTEM Calculated P [place] 49 degrees MUSE SYSTEM Calculated R [place] -65 degrees MUSE SYSTEM Calculated T [place] -5 degrees MUSE SYSTEM INTERPRETATION Sinus bradycardia Left anterior fascicular block Left ventricular hypertrophy with QRS widening Abnormal ECG When compared with ECG of 31-MAR-2019 13:58, No significant change was found Confirmed by MD Marjan, Destin ([id number]) on 02/17/2020 5:16:28 PM MUSE SYSTEM 02/17/2020 2:13 PM EDT 02/17/2020 5:16 PM EDT Danny Hicks MD ECG ORDERABLES MUSE SYSTEM documented in this encounter Visit Diagnoses Diagnosis Coronary artery disease involving [place] heart, angina presence unspecified, unspecified vessel or lesion type Atrial fibrillation with RVR - had flutter initially, then fib Atrial fibrillation Coronary artery disease, angina presence unspecified, unspecified vessel or lesion type, unspecified whether [place] or transplanted heart Hypertension secondary to other renal disorders documented in this encounter Care Teams Hardwood Flooring Specialist Relationship Specialty Start Date End Date Urbano Denis DO [address] [place] [address] PCP - General 09/03/12 03/17/22 Hai STANLEY,Ruchi Nurse Clinic Transplant Surgery 07/30/15 documented as of this encounter
--- OUTSIDE RECORDS SUMMARY | 2024-02-14 11:21 | XMS_ITS | Encounter Summary ---
Author Organization [facility] Address [facility] [place] [address] Care Team Providers Care Medical Van Driver Name Role Phone AdeelUrbano toscano Primary Care Provider [phone] Reason for Visit * Reason Onset Date Comments Medication Refill 08/30/2019 Encounter Details Date Type Department Care Team (Late st Contact Info) Description 08/30/2019 Refill [place] [address] Tal Eagle MD [facility] [place] [address] Social History Tobacco Use Types Packs/Day Years [...] AM EDT Hospital Encounter [place] [address] Arrived documented as of this encounter Goals Goal Patient Goal Type Associated Problems Recent Progress Patient-Stated? Author Home Medication Compliance and Understanding Patient Facing Action Plan On track( 017 10:41 AM EDT) Selena Scott, [facility] Note: Patient Goal: Clear hepatitis C Timeframe to meet goal: within 12 weeks of therapy documented as of this encounter Visit Diagnoses Not on filedocumented in this encounter Care Teams Medical Van Driver Relationship Specialty Start Date End Date Urbano Denis DO [address] [place] [address] PCP - General 09/03/12 03/17/22 Ruchi Valles RN Nurse Clinic Transplant Surgery 07/30/15 documented as of this encounter
--- OUTSIDE RECORDS SUMMARY | 2024-02-14 11:21 | XMS_ITS | Encounter Summary ---
[place] [address] Care Team Providers Care Clergy Member Name Role Phone Urbano Denis DO Primary Care Provider [phone] Encounter Details Date Type Department Care Team (Late st Contact Info) Description 04/20/2019 Telephone Cardiology at [address] [phone] Anel Proctor RN Social History Tobacco Use [...] Telephone Encounter - Anel Proctor RN - 05/04/2019 3:20 PM EDT Return call to patient and spoke with . Advised her that Dr. Brown had signed his part of the application and I was sending it back to her - along with and extra copy for her records and a paper Rx for the [place] to submit to [employer] with the application. Included contact information sheet for the Cardiology Department. Mrs. Bolden understands that she more than likely will need to apply again in July for [facility] . She has no other concerns at this time. Patient and or spouse know how to contact Cardiology office and understand they may do so at any time with further questions or concerns.\ Anel Proctor RN, MAVERICK Ambulatory Cardiology Department Anel Proctor RN, MARKN Ambulatory Cardiology Department . * Telephone Encounter - Anel Proctor RN - 04/20/2019 12:30 PM EDT Return call to patient spouse who was asking for Dr. Brown to sign application for Med Assistance form from [employer] for Eliquis. Patient apparently qualifies and need MD portion completed. Agreed that Mrs. Bolden will Fax a copy of the MD form to me. Once completed and signed by Dr. Brown- the form along with a paper Rx will be sent to patient confirmed home address. Spouse has no other concerns at this time. Patient and/or spouse knows how to contact Cardiology office and understands they may do so at any time with further questions or concerns.\ Anel Proctor RN, MARKN Ambulatory Cardiology Department documented in this encounter Plan of Treatment Upcoming Encounters Date Type Department Care Team (Late st Contact Info) Description 04/15/2024 10:00 AM EDT Hospital Encounter Non[place] [address] Arrived documented as of this encounter Goals Goal Patient Goal Type Associated Problems Recent Progress Patient-Stated? Author DH Home Medication Compliance and Understanding Patient Facing Action Plan On track( 017 10:41 AM EDT) No Selena Cisneros, [facility] Note: Patient Goal: Clear hepatitis C Timeframe to meet goal: within 12 weeks of therapy documented as of this encounter Visit Diagnoses Not on filedocumented in this encounter Care Teams Clergy Member Relationship Specialty Start Date End Date Urbano Denis DO [address] [place] [address] [address] [place] [address] PCP - General 09/03/12 03/17/22 Hai STANLEY,Ruchi Nurse Clinic Transplant Surgery 07/30/15 documented as of this encounter
--- OUTSIDE RECORDS SUMMARY | 2024-02-14 11:21 | XMS_ITS | Encounter Summary ---
Author Organization [facility] [place] [address] Care Team Providers Care Pill Packer Name Role Phone AdeelUrbano toscano Primary Care Provider [phone] Reason for Visit * Reason Onset Date Comments Medication Refill 07/28/2019 Encounter Details Date Type Department Care Team (Late st Contact Info) Description 07/28/2019 Refill Cardiology at [address] [address] Byron Brown MD [facility] [place] [address] Medication Refill Social History Tobacco Use Types [...] Hospital Encounter [place] [address] Arrived documented as of this encounter Goals Goal Patient Goal Type Associated Problems Recent Progress Patient-Stated? Author [facility] Medication Compliance and Understanding Patient Facing Action Plan On track( 017 10:41 AM EDT) Selena Scott, [facility] Note: Patient Goal: Clear hepatitis C Timeframe to meet goal: within 12 weeks of therapy documented as of this encounter Visit Diagnoses Diagnosis Atrial fibrillation with RVR - had flutter initially, then fib- Primary Atrial fibrillation documented in this encounter Care Teams Pill Packer Relationship Specialty Start Date End Date Urbano Denis DO [address] [place], [place] [address]Y [facility] [place] [address] PCP - General 09/03/12 03/17/22 Ruchi Valles RN Nurse Clinic Transplant Surgery 07/30/15 documented as of this encounter
--- OUTSIDE RECORDS SUMMARY | 2024-02-14 11:21 | XMS_ITS | Encounter Summary ---
Author Organization [facility] [place] [address] Care Team Providers Care Inter Com Servicer Name Role Phone Urbano Denis DO Primary Care Provider Encounter Details Date Type Department Care Team (Late st Contact Info) Description 02/15/2020 Telephone Cardiology at [address] [phone] Anel Proctor RN Social History Tobacco Use [...] Telephone Encounter - Anel Proctor RN - 02/15/2020 12:28 PM EDT Return call to patient spouse- Mara Bolden. She wanted to know if she could accompany patient for his upcoming appointment on 02/17/[address] Garibay for Cardiac clearance prior to surgery. Mrs. Bolden was not available at the time of my return call- so left the following message to answer her questions on her identified phone answering machine Advised that patient should have this appointment in person for through exam if Cardiac clearance is being requested. [facility] now allowing patient to be accompanied by one support person for appointments. She would need to wear a mask and answer the screening questions upon entering the medical center. Provided my name and phone number if patient has further questions or concerns. Anel Proctor RN, BSN Ambulatory Cardiology Department documented in this encounter Plan of Treatment Upcoming Encounters Date Type Department Care Team (Late st Contact Info) Description 04/15/2024 10:00 AM EDT Hospital Encounter Non[place] [address] Arrived documented as of this encounter Goals [...] on filedocumented in this encounter Care Teams Inter Com Servicer Relationship Specialty Start Date End Date Urbano Denis DO [address] [place] [address] PCP - General 09/03/12 03/17/22 Ruchi Valles RN Nurse Clinic Transplant Surgery 07/30/15 documented as of this encounter
--- OUTSIDE RECORDS SUMMARY | 2024-02-14 11:21 | XMS_ITS | Encounter Summary ---
Author Organization [facility] Address [facility] [place] [address] Care Team Providers Care Grommet Worker Name Role Phone AdeelUrbano toscano Primary Care Provider Reason for Visit * Reason Onset Date Comments Medication Refill 10/28/2019 Encounter Details Date Type Department Care Team (Late st Contact Info) Description 10/28/2019 Refill [place] [address] Tal Eagle MD [facility] [place] [address] Social History Tobacco Use Types Packs/Day Years [...] EDT Hospital Encounter Non-[place] [address] Arrived documented as of this encounter Goals [...] on filedocumented in this encounter Care Teams Grommet Worker Relationship Specialty Start Date End Date Urbano Denis DO [address] [place] [address] PCP - General 09/03/12 03/17/22 Ruchi Valles RN Nurse Clinic Transplant Surgery 07/30/15 documented as of this encounter
--- OUTSIDE RECORDS SUMMARY | 2024-02-14 11:21 | XMS_ITS | Encounter Summary ---
Author Organization [facility] [place] [address] Care Team Providers Care Trim Mounter Name Role Phone Adeel Urbano KIRBY Primary Care Provider Reason for Visit * Reason Comments Medication Refill Encounter Details Date Type Department Care Team (Late st Contact Info) Description 10/28/2019 Refill [place] [address] Tal Eagle MD [facility] [place] [address] Social History Tobacco Use Types Packs/Day Years [...] AM EDT Hospital Encounter [place] [address] Arrived documented as of this encounter Goals Goal Patient Goal Type Associated Problems Recent Progress Patient-Stated? Author [facility] Medication Compliance and Understanding Patient Facing Action Plan On track( 017 10:41 AM EDT) Selena Scott, [facility] Note: Patient Goal: Clear hepatitis C Timeframe to meet goal: within 12 weeks of therapy documented as of this encounter Visit Diagnoses Not on filedocumented in this encounter Care Teams Trim Mounter Relationship Specialty Start Date End Date Urbano Denis DO [address] [place] [address] PCP - General 09/03/12 03/17/22 Ruchi Valles RN Nurse Clinic Transplant Surgery 07/30/15 documented as of this encounter
--- OUTSIDE RECORDS SUMMARY | 2024-02-14 11:21 | XMS_ITS | Encounter Summary ---
Author Organization [facility] [place] [address] Care Team Providers Care Certified Emergency Vehicle Technician Name Role Phone Adeel Urbano KIRBY Primary Care Provider Encounter Details Date Type Department Care Team (Late st Contact Info) Description 07/29/2019 Abstract [place] [address] Tal Eagle MD [facility] [place] [address] Social History Tobacco Use Types Packs/Day Years [...] AM EDT Hospital Encounter Non-[place] [phone] Arrived documented as of this encounter Goals Goal Patient Goal Type Associated Problems Recent Progress Patient-Stated? Author [facility] Medication Compliance and Understanding Patient Facing Action Plan On track( 017 10:41 AM EDT) No Selena Cisneros RPH Note: Patient Goal: Clear hepatitis C Timeframe to meet goal: within 12 weeks of therapy documented as of this encounter Visit Diagnoses Not on filedocumented in this encounter Care Teams Certified Emergency Vehicle Technician Relationship Specialty Start Date End Date Urbano Denis DO [address] [place] [address] PCP - General 09/03/12 03/17/22 Ruchi Valles RN Nurse Clinic Transplant Surgery 07/30/15 documented as of this encounter
--- OUTSIDE RECORDS SUMMARY | 2024-02-14 11:21 | XMS_ITS | Encounter Summary ---
Author Organization [facility]ly [facility] [place] [address] Care Team Providers Care Supportability Engineer Name Role Phone Urbano Denis DO Primary Care Provider + [phone] Encounter Details Date Type Department Care Team (Late st Contact Info) Description 11/24/2019 9:20 AM EDT TH Visit (TeleHealth) Cardiology at [address] [address] Byron Brown MD [facility] [place] [address] Atrial fibrillation with RVR - had flutter initially, then fib; Coronary artery disease, angina presence unspecified, unspecified vessel or lesion type, unspecified whether [place] or transplanted heart Social History Tobacco Use Types Packs/Day Years [...] Progress Notes * Byron Brown MD - 11/24/2019 9:20 AM EDT Images from the original note were not included. [facility] [place] [address] CARDIOLOGY/ VASCULAR OUTPATIENT NOTE Cody Bolden Urbano Denis, TELEHEALTH VISIT : 68 year old male with a history of kidney transplant in 2016. Now with recent NSTEMI in the contextof atrial flutter and infection. Cardiac cath with PCI to OM. Normal LVEF. Remains on triple therapy at this time. Active issues: ?? #CAD/CHF: reasonable to stop ASA 81. Continue plavix and apixaban. Needs plavix for one year (untilFeb 2020). He is on BB and high intensity statin. Not on ANNAMARIE or ARB probably due to concerns about renal function with the transplanted kidney. Might be able to add in the future if the LVEF remains abnormal. Noted that his initial LVEF was 30%, but this was in the context of atrial flutter with RVR. Improved to 40-50% within one week. Will need a follow-up echo for LV function. ?? #PAF: remains in NSR, but history of mild CVA/TIA and AFL. Continue anticoagulation. Low dose BBlocker with adequate rate control. SUBJECTIVE: I spoke with Mr. Bolden and his via video conference today. He seems to be doing very well. He is physically active - helps his son with a variety of outdoor projects, cuts his own grass, uses a tractor, spends time in his garden, etc. With these activities, he has not had any chest pain or significant shortness of breath. No significant side effects with his medication. Of note, he remains on plavix and eliquis. Meds: Current Outpatient Medications Medication Sig Dispense Refill ??? potassium phosphate, monobasic, (K-Phos Original) 500 [...] 2 times daily. 180 tablet 3 ??? atorvastatin (LIPITOR) 40 mg Tablet Take 1 tablet by mouth every evening. 90 tablet 3 ??? nitroGLYcerin (NITROSTAT) 0.4 mg [...] 3 times daily. 30 tablet 3 ??? clopidogrel (PLAVIX) 75 mg Tablet Take 75 mg by mouth daily. ASSESSMENT / PLAN: Pleasant 69 year old male. S/p kidney transplant in 2015. ?? The patient did not have a significant cardiac history but was admitted to [facility] in January 2019 with newly diagnosed AFlutter and a NSTEMI. He underwent cardiac cath and PCI to an OM lesion. LVEF was initially 30% (while in AFL with RVR) - but improved one week later to 45%. ?? His hospitalization was complicated by a subsequent infection (enterococcus bacteremia) and he required 2 weeks of IV antibiotics. Issues: 1. Anticoagulation : There is some minor confusion on this issue. His notes that prior to his NSTEMI, the patient was placed on plavix by a neurologist at [facility] (Shannan Redmond). There was some question about CVA/TIA at that time. He was later seen by a director of strategic communications at [facility] (Petar) who obtained a ZIO that [...] He has nothad any significant bleeding issues. We discussed the following: -Stop plavix on Feb 04, 2020; start ASA 81 mg po qd -Continue with Eliquis for the history of PAF (AFL/AF) and history of TIA/CVA -follow-up with neuro at some point may be reasonable. 2. Continue other cardiac meds as above. Follow-up: 6 months or prn. Byron Brown MD, [facility] Cardiovascular Medicine [facility] Clinic scheduling: Trinidad Burgosson [phone] Clinic Team Nurse: Anel Proctor RN [phone] I provided care to the patient today via telephone / video conference. The total time associated with this visit was 25 minutes. documented in this encounter Plan of Treatment Upcoming Encounters Date Type Department Care Team (Late st Contact Info) Description 04/15/2024 10:00 AM EDT Hospital Encounter Non-[place] [address] Arrived documented as of this encounter Goals [...] unspecified vessel or lesion type, unspecified whether [place] or transplanted heart documented in this encounter Care Teams Supportability Engineer Relationship Specialty Start Date End Date Urbano Denis DO [address] [place] [address] [address] [place] [address] PCP - General 09/03/12 03/17/22 Hai STANLEY,Ruchi Nurse Clinic Transplant Surgery 07/30/15 documented as of this encounter
--- OUTSIDE RECORDS SUMMARY | 2024-02-14 11:21 | XMS_ITS | Encounter Summary ---
Author Organization [facility] [place] [address] Care Team Providers Care Manager Customer Service Name Role Phone AdeelUrbano toscano Primary Care Provider Encounter Details Date Type Department Care Team (Late st Contact Info) Description 01/04/2020 Telephone [place] [address] Lazara Bhatia, RN Social History Tobacco Use Types Packs/Day [...] encounter Miscellaneous Notes * Telephone Encounter - Lazara Bhatia RN - 01/04/2020 12:59 PM EDT I spoke with Cody regarding his most recent tacrolimus level. Cody states that he took his tacrolimus in the morning and had his blood drawn around noon. I explained that I would reorder a tacrolimus level to [facility] and that he should hold his tacrolimus dose prior to the blood draw. Cody verbalized understanding. documented in this encounter Plan of Treatment Upcoming Encounters Date Type Department Care Team (Late st Contact Info) Description 04/15/2024 10:00 AM EDT Hospital Encounter [place] [address] Arrived documented as of this encounter Goals Goal Patient Goal Type Associated Problems Recent Progress Patient-Stated? Author DH Home Medication Compliance and Understanding Patient Facing Action Plan On track( 017 10:41 AM EDT) No Selena Cisneros, [facility] Note: Patient Goal: Clear hepatitis C Timeframe to meet goal: within 12 weeks of therapy documented as of this encounter Visit Diagnoses Diagnosis H/O kidney transplant Kidney replaced by transplant documented in this encounter Care Teams Manager Customer Service Relationship Specialty Start Date End Date Urbano Denis DO [address] [place] [address] PCP - General 09/03/12 03/17/22 Ruchi Valles RN Nurse Clinic Transplant Surgery 07/30/15 documented as of this encounter
--- OUTSIDE RECORDS SUMMARY | 2024-02-14 11:21 | XMS_ITS | Encounter Summary ---
Author Organization [facility] [place] [address] Care Team Providers Care Operations Chief Name Role Phone Urbano Denis DO Primary Care Provider [phone] Encounter Details Date Type Department Care Team (Latest Contact Info) Description 03/11/2019 10:40 AM EDT Office Visit [place] [address] Tal Eagle MD [facility] [place] [address] H/O kidney transplant; Aftercare following organ transplant; Hospital discharge follow-up; Enterococcal bacteremia; Prophylactic immunotherapy Social History Tobacco Use Types [...] Sign Reading Time Taken Comments Blood Pressure 122/60 03/11/2019 10:50 AM EDT Pulse 56 03/11/2019 10:50 AM EDT Temperature - - Respiratory Rate - - Oxygen Saturation - - Inhaled Oxygen Concentration - - Weight 97.2 kg (214 lb 3.2 oz) 03/11/2019 10:50 AM EDT Height 180.3 cm (5' 11) 03/11/2019 10:50 AM EDT Body Mass Index 29.87 03/11/2019 10:50 AM EDT documented in this encounter Progress Notes * Tal Eagle MD - 03/11/2019 10:40 AM EDT Transplant Nephrology Clinic Follow up Note - after recent hospitalization ?? PATIENT: Ethel Akins : 1950 ? HPI: 68 y.o. male with PMHx significant for transplanted??Kidney due to DM, HTN; and s/p HCV successfully treated after tx ? History of Present Illness: 68??y.o. male w/ hx of HCV, DM, HTN who is s/p donor kidney transplant 09/16/15. Patient presents to transplant clinic for follow-up after recent admission for enterococcal bacteremia Rx withampicillin for 14 days. Of note is the fact his EF had fallen to near 30% rising to approx. 40% at discharge. He continues to smoke cigars. He is weak and slowly recovering. He plans to go to [place] to visit his elderly mother. 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 Previous Tx Hx: 0% PRA. Patient given Basliximab for induction. EBV +/+, CMV +/+; Rx post tx with Harvoni for hep C and he has cleared the i nfection. ? Healthcare maintenance for a transplant recipient: ?Immunizations (no live virus or modified bacterial vaccines) ?Prevnar 13 once in a lifetime ?Pneumovax 23 every 5 years ?Tdap every 10 years ?Annual flu shot NO SHINGLES VACCINES Annual PCP exam Annual CASEY [...] for diabetics, every 5 for non diabetics [place] kidney ultrasound looking for renal cell CA, every 5 years post transplant Bone density assessment every 9-12 years post transplant Annual fasting lipid profile Annual PTH-Vit D3 assessment until normalized Annual spot urine for creatinine, protein, calcium, phosphate, magnesium 12 organ review of systems were neither + or - ? Medications: Current Outpatient Medications: ??? furosemide (LASIX) 20 mg Tablet, Take 1 tablet by mouth daily., Disp: , Rfl: ??? aspirin 81 mg Tablet, Chewable, Take 81 mg by mouth daily., Disp: 30 tablet, Rfl: 3 ??? atorvastatin (LIPITOR) 40 mg Tablet, Take 1 tablet by mouth every evening., Disp: 90 tablet, Rfl: 3 ??? metoprolol succinate (TOPROL-XL) 25 mg Tablet Sustained Release 24 hr, Take 1 tablet by mouth daily., Disp: 30 tablet, Rfl: 12 ??? nitroGLYcerin (NITROSTAT) 0.4 mg Tablet, Sublingual, Place 1 tablet under the tongue every 5 minutes as needed for Chest pain., Disp: 90 tablet, Rfl: 12 ??? glipiZIDE (GLUCOTROL) 5 mg Tablet, Take 0.5 tablets by mouth 2 times daily (before meals)., Disp: 30 tablet, Rfl: 12 ??? tamsulosin (FLOMAX) 0.4 mg Capsule, Take 0.4 mg by mouth daily., Disp: , Rfl: ??? acetaminophen (TYLENOL) 500 mg Tablet, Take 1,000 mg by mouth every 8 hours as needed for Pain., Disp: , Rfl: ??? mycophenolate (CELLCEPT) 250 mg Capsule, Take 1 capsule by mouth 2 times daily. Kidney Transplant ICD Code Z94.0, Disp: 60 capsule, Rfl: 8 ??? tacrolimus (PROGRAF) 1 mg Capsule, TAKE TWO CAPSULES BY MOUTH EVERY MORNING, TAKE ONE CAPSULE BY MOUTH NIGHTLY ., Disp: 90 capsule, Rfl: 8 ??? potassium phosphate, monobasic, (K-PHOS ORIGINAL) 500 mg Tablet, Soluble, Take 2 tablets by mouth 2 times daily. DISSOLVE IN WATER PRIOR TO ADMINISTRATION, Disp: 540 tablet, Rfl: 3 ??? Magnesium Gluconate 27 mg magnesium (500 mg) Tablet, TAKE TWO TABLETS BY MOUTH TWICE A DAY, Disp: 360 tablet, Rfl: 3 ??? calciTRIol (ROCALTROL) 0.5 mcg Capsule, TAKE ONE CAPSULE BY MOUTH EVERY DAY, Disp: 90 capsule, Rfl: 3 ??? polyethylene glycol (MIRALAX) 17 gram Powder in Packet, Take 17 g by mouth 2 times daily. Take to maintain normal bowel pattern while taking narcotic pain medication., Disp: , Rfl: ??? levothyroxine (SYNTHROID) 137 mcg Tablet, Take 137 mcg by mouth daily., Disp: , Rfl: ??? ascorbic acid, vitamin C, (VITAMIN C) 500 mg Tablet, Take 1 tablet by mouth 3 times daily., Disp: 30 tablet, Rfl: 3 ??? clopidogrel (PLAVIX) 75 mg Tablet, Take 75 mg by mouth daily., Disp: , Rfl: Allergies / ADRs: No Known Allergies Immunization History Administered Date(s) Administered ??? Hepatitis B Vaccine, unspecified formulation 04/16/2015, 05/14/2015, 06/20/2015 ??? Influenza PF, Split 06/04/2012, 05/26/2013, 04/07/2015, 08/03/2017 ??? Influenza PF, Split (High Dose) 04/23/2016 ??? Influenza Vaccine PF, Quadrivalent (6-35 Mos) 04/04/2015 ??? Pneumococcal Polyvalent 23 06/20/2014, 04/11/2015 ??? Td, adult 07/06/2000, 05/20/2011 ??? Zoster Vaccine, Live 08/30/2015 ?? ROS: Constitutional - No fevers, chills, weight [...] pain urinating or blood in urine. Neuro - Gen'l weakness and easy fatigue. No numbness/ tingling in extremities. ?? PHYSICAL EXAM: Vitals Office Visit from 03/11/2019 in Solid Organ Transplant at [facility] Weight 97.2 kg (214 lb 3.2 oz) Height 180.3 cm (5' 11) BSA (Calculated - sq m) 2.21 sq meters BMI (Calculated) 29.87 Heart Rate 56 BP 122/60 Patient Position Sitting Appearance - Alert, Comfortable. Skin - No exanthem. HEENT - Sclera white. Mucous membranes moist. Chest: Lungs clear to ausculatation w/o wheezes/ rhonchi/ crackles. Heart - S1 and S2 clear w/o murmur, gallop, or rub. JVP not elevated. Abd - Soft. + BS. No bruit. Non tender. Ext - Warm. No cyanosis. No dependent edema. Neuro - No asterixis. ?? STUDIES: Results for ETHEL AKINS ( ) as of 03/22/2019 06:07 Ref. Range 03/11/2019 09:58 03/11/2019 10:03 WBC Latest Ref Range: 4.0 - 9.5 x10(3)/mcL 7.7 RBC Latest Ref Range: 4.58 - 5.54 x10(6)/mcL 4.78 Hemoglobin Latest Ref Range: 13.7 - 16.5 gm/dL 14.7 Hematocrit Latest Ref Range: 40.5 - 48.5 % 42.8 MCV Latest Ref Range: 82.9 - 93.1 fL 89.5 MCH Latest Ref Range: 27.5 - 32.1 pg 30.8 MCHC Latest Ref Range: 32.0 - 35.7 gm/dL 34.3 RDWSD Latest Ref Range: 36.0 - 45.0 fL 45.0 RDWCV Latest Ref Range: 11.4 - 13.8 % 13.6 Platelets Latest Ref Range: 145 - 357 x10(3)/mcL 251 MPV Latest Ref Range: 7.6 - 12.[address] % Latest Ref Range: 0.7 - 2.6 % 2.[address] Abs Latest Ref Range: 0.030 - 0.120 x10(6)/mcL 0.110 Immature Retic% Latest Ref Range: 0.0 - 15.6 % 14.4 Reticulated Hgb Latest Ref Range: 31.3 - 40.2 pg 35.8 nRBC % Auto Latest Units: % 0.0 nRBC Abs Auto Latest Ref Range: 0.000 - 0.000 x10(3)/mcL 0.000 Neutr Abs (ANC) Latest Ref Range: 1.70 - 6.10 x10(3)/mcL 4.86 Neutrophils % Latest Units: % 63.2 Immature Gran % Latest Units: % 0.40 Lymphocytes % Latest Units: % 23.5 Monocytes % Latest Units: % 7.4 Eosinophils % Latest Units: % 4.3 Basophils % Latest Units: % 1.2 Ayesha Gran Abs Latest Ref Range: 0.00 - 0.04 x10(3)/mcL 0.03 Lymphocytes Abs Latest Ref Range: 0.9 - 3.2 x10(3)/mcL 1.8 Monocyte Abs Latest Ref Range: 0.3 - 0.9 x10(3)/mcL 0.6 Eosinophils Abs Latest Ref Range: 0.0 - 0.4 x10(3)/mcL 0.3 Basophils Abs Latest Ref Range: 0.0 - 0.1 x10(3)/mcL 0.1 Sodium Latest Ref Range: 135 - 145 mmol/L 139 Potassium Latest Ref Range: 3.5 - 5.0 mmol/L 3.3 (L) Chloride Latest Ref Range: 98 - 107 mmol/L 100 CO2 Latest Ref Range: 22 - 31 mmol/L 25 Anion Gap Latest Ref Range: 5 - 15 mmol/L 14 BUN Latest Ref Range: 10 - 20 mg/dL 19 Creatinine Latest Ref Range: 0.80 - 1.50 mg/dL 1.35 eGFR Latest Ref Range: >=60 mL/min/1.73 m?? 53 (L) eGFR Latest Ref Range: >=60 mL/min/1.73 m?? 61 Glucose Lvl Latest Ref Range: 65 - 199 mg/dL 154 Calcium Latest Ref Range: 8.5 - 10.5 mg/dL 9.8 Magnesium Latest Ref Range: 0.69 - 1.07 mmol/L 0.57 (L) Phosphorus Latest Ref Range: 2.5 - 4.5 mg/dL 2.8 Uric Acid Latest Ref Range: 3.5 - 8.5 mg/dL 7.5 Total Protein Latest Ref Range: 6.1 - 8.0 gm/dL 7.5 Albumin Latest Ref Range: 3.2 - 5.2 gm/dL 4.1 Total Bilirubin Latest Ref Range: 0.2 - 1.3 mg/dL 1.9 (H) Alk Phos Latest Ref Range: 40 - 130 unit/L 71 AST Latest Ref Range: 0 - 39 unit/L 17 ALT Latest Ref Range: 0 - 55 unit/L 18 U Protein Ran Latest Ref Range: 0 - 12 mg/dL 31 (H) Chol, Total Latest Units: mg/dL 83 Lipid Interpretation Unknown See Note Tacrolimus Lvl Latest Units: ng/mL 8.3 Color UA Latest Ref Range: Yellow Yellow Appearance UA Latest Ref Range: Clear Clear Spec [place] UA Latest Ref Range: 1.002 - 1.030 1.011 pH UA Latest Ref Range: 5.0 - 8.0 6.0 Protein UA Latest Ref Range: Negative mg/dL 30 (A) Glucose UA Latest Ref Range: Negative mg/dL Negative Ketones UA Latest Ref Range: Negative mg/dL Negative Bilirubin UA Latest Ref Range: Negative mg/dL Negative Urobilinogen UA Latest Ref Range: Normal mg/dL Normal Blood UA Latest Ref Range: Negative mg/dL Negative Leukocytes UA Latest Ref Range: Negative mcL Negative Nitrite UA Latest Ref Range: Negative Negative WBC UA Latest Ref Range: 0 - 3 /HPF 1 RBC UA Latest Ref Range: 0 - 3 /HPF 1 Culture Reflexed Unknown No Prot/Cre Ratio Latest Units: ratio 0.7 U Creatinine Latest Units: mg/dL 45 IMPRESSION/ RECOMMENDATIONS: Mr. Akins is a 68 ??yr old gentleman w/ hx of kidney transplant whopresents to clinic for f/u visit after a prolonged hospital stay for enterococcal bacteremia. His ureteral obstruction and hep C issues have been resolved. He has developed metabolic alkalosis and mild hypokalemia due to Baking soda ingestion . ? Transplant Status -s/p donor kidney transplant -Creatinine stable?? -Drinks 2L fluids/day -Patient now has PTDM treatment and is under care with his??PCP and on Glipizide ? Immunosuppression -Prograf, Cellcept ? PO4/Mg - Kphos.??decr to 2 tabs bid - Magnesium??gluconate??to 1000mg BID; increased today to [id number] TID -Advised not to take Baking soda which cause alkalosis and hypokalemia - He can take liquid antacid OTC or zantac or Tums ?? Erythrocytosis - cont' to observe No need of RAAS inhibition , continue hydration Close follow up ? Hypertension: BP is 140-62 mmhg , not on antihypertensive Encourage to check BP at home -??on Flomax ? Hepatitis C -on Harvoni treatment -Viral load undetectable after treatment in June ? [id number] labs f/u in September 2019 ?? ? Discussion with the patient and/or family concerned the following: ? Diagnostic results or recommended studies ? Prognosis; ? Risks and benefits of management; ? Instructions for management; ? Compliance with treatment; ? Risk factor reduction; ? Patient and family education. ? Total time 25 of 30 min in direct face to face general counsel. documented in this encounter Plan of Treatment Upcoming Encounters Date Type Department Care Team (Late st Contact Info) Description 04/15/2024 10:00 AM EDT Hospital Encounter [place] [address] Arrived documented as of this [...] encounter Results * (ABNORMAL) Protein/Creatinine Ratio, urine (03/11/2019 10:03 AM EDT) Creatinine, Urine 45 mg/dL [facility] Protein, Urine 31(H) 0 - 12 mg/dL [facility] Protein / Creatinine Ratio, Urine 0.7 ratio [facility] Urine specimen (specimen) 03/11/2019 10:03 AM EDT 03/11/2019 10:20 AM EDT Narrative Resulting Agency Comment Spec In Lab Tal Eagle MD URINE ORDERABLES [facility] [place] [id number] * (ABNORMAL) Urinalysis with reflex Culture (03/11/2019 10:03 AM EDT) Glucose, Urine Dipstick Negative Negative mg/dL [facility] Protein, Urine Dipstick 30(A) Negative mg/dL [facility] pH, Urn (dipstick) 6.0 5.0 - 8.0 [facility] Blood, Urine Dipstick Negative Negative mg/dL [facility] Ketone, Urine Dipstick Negative Negative mg/dL [facility] Nitrite, Urine Dipstick Negative Negative [facility] Leukocytes, Urine Dipstick Negative Negative [facility] Appearance, Urine Dipstick Clear Clear [facility] Specific [place] Urine Automated 1.011 1.002 - 1.030 [facility] Color, Urine Dipstick Yellow Yellow [facility] Reflex to Culture No [facility] Urine specimen obtained by clean catch procedure (specimen) 03/11/2019 10:03 AM EDT 03/11/2019 10:08 AM EDT Narrative Resulting Agency Comment Spec In Lab Tal Eagle MD URINE ORDERABLES Performing Organization Address [facility] Co de Phone Number [facility] [place] [address] * Tacrolimus level (03/11/2019 9:58 AM EDT) Tacrolimus 8.3 ng/mL [facility] Comment: Trough therapeutic: ??5-15 ng/mL Performed by ultra-performance liquid chromatography tandem mass spectrometry (UPLCMS/MS). This test was developed and its performance characteristics determined by [facility]. It has not been cleared or approved by the FDA. The laboratory is regulated under CLIA as qualified to perform high-complexity testing. This test is used for clinical purposes. It should not be regarded as investigational or for research. Blood specimen (specimen) 03/11/2019 9:58 AM EDT 03/11/2019 12:38 PM EDT Narrative Resulting Agency Comment Spec In Lab Tal Eagle MD CHEMISTRY ORDERAB LES Performing Organization Address [facility] Co de Phone Number [facility] [place] [address] * Uric acid (03/11/2019 9:58 AM EDT) Uric Acid 7.5 3.5 - 8.5 mg/dL [facility] Blood specimen (specimen) 03/11/2019 9:58 AM EDT 03/11/2019 10:23 AM EDT Narrative Resulting Agency Comment Spec In Lab Tal Eagle MD CHEMISTRY ORDERAB LES Performing Organization Address [facility] Co de Phone Number [facility] [place] [address] * Phosphorus (03/11/2019 9:58 AM EDT) Phosphorus 2.8 2.5 - 4.5 mg/dL [facility] Blood specimen (specimen) 03/11/2019 9:58 AM EDT 03/11/2019 10:23 AM EDT Narrative Resulting Agency Comment Spec In Lab Tal Eagle MD CHEMISTRY ORDERAB LES Performing Organization Address [facility] Co de Phone Number [facility] [place] [address] * (ABNORMAL) Magnesium (03/11/2019 9:58 AM EDT) Magnesium 0.57(L) 0.69 - 1.07 mmol/L [facility] Blood specimen (specimen) 03/11/2019 9:58 AM EDT 03/11/2019 10:23 AM EDT Narrative Resulting Agency Comment Spec In Lab Tal Eagle MD CHEMISTRY ORDERAB LES Performing Organization Address [facility] Co de Phone Number [facility] [place] [address] * Cholesterol, total (03/11/2019 9:58 AM EDT) Cholesterol, Total 83 mg/dL [facility] Comment: Lower Risk: <200 mg/dL Average Risk: 200-239 mg/dL Higher Risk: >nv=404 mg/dL Lipid Interpretation See Note [facility] Comment: Lipid management should be guided by a patient? s ASCVD risk, goals and preferences. ACC/AHA Guidelines recommend high intensity statin if clinical ASCVD or LDL greater than or equal to 190 mg/dL. http://[email or web address].[email or web address]/ITL-PGP-Fgnxrzxtb Adults aged 40-75 with LDL 70-189 mg/dL should have their 10 year ASCVD risk estimated with the ACC/AHA ASCVD risk job cost estimator http://tools.acc.org/GQTZU-Ywqq-Tihpzmnot/ Statin should be discussed if risk greater [...] critical component of ASCVD risk reduction. Blood specimen (specimen) 03/11/2019 9:58 AM EDT 03/11/2019 10:23 AM EDT Narrative Resulting Agency Comment Spec In Lab aTl Eagle MD CHEMISTRY ORDERAB LES [facility] [place] [address] * (ABNORMAL) Comprehensive metabolic panel (non-fasting) (03/11/2019 9:58 AM EDT) Glucose 154 65 - 199 mg/dL [facility] Comment:Diabetes: >=200 mg/d L plus symptoms Blood Urea Nitrogen 19 10 - 20 mg/dL [facility] Creatinine 1.35 0.80 - 1.50 mg/dL [facility] Sodium 139 135 - 145 mmol/L [facility] Potassium 3.3(L) 3.5 - 5.0 mmol/L [facility] Comment: Please note: ??Patients with WBC >100,000 may have falsely elevated Potassium levels. ??For accurate Potassium quantification in these patients send serum separator tube (gold top) for subsequent determinations. ??Contact the Clinical Chemistry Laboratory if there are any questions. Chloride 100 98 - 107 mmol/L [facility] Carbon Dioxide 25 22 - 31 mmol/L [facility] Anion Gap 14 5 - 15 mmol/L [facility] Calcium 9.8 8.5 - 10.5 mg/dL [facility] Protein, Total 7.5 6.1 - 8.0 gm/dL [facility] Albumin 4.1 3.2 - 5.2 gm/dL [facility] Aspartate Aminotransferase 17 0 - 39 unit/L [facility] Alanine Aminotransferase 18 0 - 55 unit/L [facility] Alkaline Phosphatase 71 40 - 130 unit/L [facility] Bilirubin, Total 1.9(H) 0.2 - 1.3 mg/dL [facility] Est Glomerular Filtration Rate 53(L) >=60 mL/min/1. 73 m?? [facility] Comment: The eGFR was calculated using the CKD-EPI equation. As with all creatinine based estimates of kidney function, eGFR values calculated with the CKD-EPI equation are not accurate in patients with acute kidney failure, extremes of body mass or the acutely ill. [email or web address] eGFR 61 >=60 mL/min/1. 73 m?? [facility] Comment: The eGFR was calculated using the CKD-EPI equation. As with all creatinine based estimates of kidney function, eGFR values calculated with the CKD-EPI equation are not accurate in patients with acute kidney failure, extremes of body mass or the acutely ill. [email or web address] Blood specimen (specimen) 03/11/2019 9:58 AM EDT 03/11/2019 10:23 AM EDT Narrative Resulting Agency Comment Spec In Lab Tal Eagle MD CHEMISTRY ORDERAB LES [facility] [place] [address] * Reticulocyte Count (03/11/2019 9:58 AM EDT) Reticulocyte % 2.2 0.7 - 2.6 % [facility] Retic Abs # 0.110 0.030 - 0.120 x10(6)/mcL [facility] Immature Retic% 14.4 0.0 - 15.6 % [facility] Reticulated Hgb 35.8 31.3 - 40.2 pg [facility] Blood specimen (specimen) 03/11/2019 9:58 AM EDT 03/11/2019 10:23 AM EDT Narrative Resulting Agency Comment Spec In Lab Tal Eagle MD HEMATOLOGY ORDERA BLES [facility] [place] [address] documented in this encounter Visit Diagnoses Diagnosis H/O kidney transplant Kidney replaced by transplant Aftercare following organ transplant Hospital discharge follow-up Other follow-up examination Enterococcal bacteremia Bacteremia Prophylactic immunotherapy Need for prophylactic immunotherapy documented in this encounter Care Teams Operations Chief Relationship Specialty Start Date End Date Urbano Denis DO [address] [place] [address] [address] [facility] [address] [place] [address] PCP - General 09/03/12 03/17/22 Ruchi Valles RN Nurse Clinic Transplant Surgery 07/30/15 documented as of this encounter
--- OUTSIDE RECORDS SUMMARY | 2024-02-14 11:21 | XMS_ITS | Encounter Summary ---
Author Organization [facility]ly [facility] [place] [address] Care Team Providers Care Superintendent Schools Name Role Phone AdeelUrbano toscano Primary Care Provider [phone] Reason for Visit * Reason Onset Date Comments Medication Refill 07/08/2019 Encounter Details Date Type Department Care Team (Late st Contact Info) Description 07/08/2019 Refill Cardiology at [address] [address] Byron Brown MD [facility] [place] [address] Medication Refill Social History Tobacco Use Types [...] AM EDT Hospital Encounter Non[place] [address] Arrived documented as of this encounter Goals Goal Patient Goal Type Associated Problems Recent Progress Patient-Stated? Author [facility] Medication Compliance and Understanding Patient Facing Action Plan On track( 017 10:41 AM EDT) Selena Scott, [facility] Note: Patient Goal: Clear hepatitis C Timeframe to meet goal: within 12 weeks of therapy documented as of this encounter Visit Diagnoses Diagnosis Atrial fibrillation with RVR - had flutter initially, then fib Atrial fibrillation documented in this encounter Care Teams Superintendent Schools Relationship Specialty Start Date End Date Urbano Denis DO [address] [place], [place] [address]Y [facility] [address] [place] [address] PCP - General 09/03/12 03/17/22 Ruchi Valles RN Nurse Clinic Transplant Surgery 07/30/15 documented as of this encounter
--- OUTSIDE RECORDS SUMMARY | 2024-02-14 11:21 | XMS_ITS | Encounter Summary ---
Author Organization [facility] [place] [address] Care Team Providers Care Manufacturing Plant Manager Name Role Phone Urbano Denis DO Primary Care Provider [phone] Encounter Details Date Type Department Care Team (Latest Contact Info) Description 03/11/2019 9:40 AM EDT Laboratory Appointment Lab [address] [place] [phone] H/O kidney transplant Social History Tobacco Use [...] AM EDT Hospital Encounter [place] [phone] Arrived documented as of this encounter Goals Goal Patient Goal Type Associated Problems Recent Progress Patient-Stated? Author [facility] Medication Compliance and Understanding Patient Facing Action Plan On track( 017 10:41 AM EDT) No Selena Cisneros [facility] Note: Patient Goal: Clear hepatitis C Timeframe to meet goal: within 12 weeks of therapy documented as of this encounter Procedures Procedure Name Priority Date/Time Associated Diagnosis Comments URINALYSIS MICROSCOPIC EXAM STAT 03/11/2019 10:03 AM EDT HC CREATININE - NON BLOOD STAT 03/11/2019 10:03 AM EDT H/O kidney transplant URINALYSIS WITH REFLEX CULTURE STAT 03/11/2019 10:03 AM EDT H/O kidney transplant HEMOGRAM STAT 03/11/2019 9:58 AM EDT H/O kidney transplant DIFFERENTIAL, AUTOMATED STAT 03/11/2019 9:58 AM EDT H/O kidney transplant HC FK-506 (TACROLIMUS) STAT 9 9:58 AM EDT H/O kidney transplant HC RETIC,AUTO INCLUDES RETHE & IRF STAT 03/11/2019 9:58 AM EDT H/O kidney transplant HC CBC,PLT & AUTO DIFF STAT 9 9:58 AM EDT H/O kidney transplant HC URIC ACID, SERUM STAT 03/11/2019 9 :58 AM EDT H/O kidney transplant HC PHOSPHORUS, SERUM STAT 03/11/2019 9:58 AM EDT H/O kidney transplant HC MAGNESIUM, SERUM STAT 03/11/2019 9 :58 AM EDT H/O kidney transplant HC CHOLESTEROL STAT 03/11/2019 9:58 AM EDT H/O kidney transplant COMPREHENSIVE METABOLIC PANEL STAT 03/11/2019 9:58 AM EDT H/O kidney transplant documented in this encounter Results * Urinalysis Microscopic Exam (03/11/2019 10:03 AM EDT) RBC, Urine 1 0 - 3 /HPF [facility] WBC, Urine 1 0 - 3 /HPF [facility] Urine specimen obtained by clean catch procedure (specimen) 03/11/2019 10:03 AM EDT 03/11/2019 10:08 AM EDT Narrative Resulting Agency Comment Spec In Lab Tal Eagle MD URINE ORDERABLES [facility] [place] [address] * (ABNORMAL) Urinalysis with reflex Culture (03/11/2019 10:03 AM EDT) Glucose, Urine Dipstick Negative Negative mg/dL [facility] Protein, Urine Dipstick 30(A) Negative mg/dL [facility] Bilirubin, Urine Dipstick Negative Negative mg/dL [facility] Comment: Clinical correlation required for positive Urine Bilirubin results as false positive may occur with some drugs and drug related products. If a false positive is suspected a serum total bilirubin should be considered if clinically indicated. Urobilinogen, Urine Dipstick Normal Normal mg/dL [facility] pH, Urn (dipstick) 6.0 5.0 - 8.0 [facility] Blood, Urine Dipstick Negative Negative mg/dL [facility] Ketone, Urine Dipstick Negative Negative mg/dL [facility] Nitrite, Urine Dipstick Negative Negative [facility] Leukocytes, Urine Dipstick Negative Negative mcL [facility] Appearance, Urine Dipstick Clear Clear [facility] Specific [place] Urine Automated 1.011 1.002 - 1.030 [facility] Color, Urine Dipstick Yellow Yellow [facility] Reflex to Culture No [facility] Urine specimen obtained by clean catch procedure (specimen) 03/11/2019 10:03 AM EDT 03/11/2019 10:08 AM EDT Narrative Resulting Agency Comment Spec In Lab Tal Eagle MD URINE ORDERABLES Performing Organization Address City/[facility]/ZIP Co de Phone Number [facility] [place] [address] * (ABNORMAL) Protein/Creatinine Ratio, urine (03/11/2019 10:03 AM EDT) Creatinine, Urine 45 mg/dL [facility] Protein, Urine 31(H) 0 - 12 mg/dL [facility] Protein / Creatinine Ratio, Urine 0.7 ratio [facility] Urine specimen (specimen) 03/11/2019 10:03 AM EDT 03/11/2019 10:20 AM EDT Narrative Resulting Agency Comment Spec In Lab Tal Eagle MD URINE ORDERABLES Performing Organization Address [facility] Co de Phone Number [facility] [place] [address] * Differential, Automated (03/11/2019 9:58 AM EDT) Neutrophil % 63.2 % [facility] Neutrophil Absolute 4.86 1.70 - 6.10 x10(3)/[facility] Lymph % 23.5 % [facility] Lymphocytes Abs 1.8 0.9 - 3.2 x10(3)/[facility] Monocyte % 7.4 % [facility] Monocyte Abs 0.6 0.3 - 0.9 x10(3)/[facility] Eos % 4.3 % [facility] Eosinophils Abs 0.3 0.0 - 0.4 x10(3)/[facility] Basophil % 1.2 % [facility] Baso Absolute 0.1 0.0 - 0.1 x10(3)/[facility] Immature Gran % 0.40 % [facility] Comment: Immature granulocytes(IG's)percentage and absolute count will include metamyelocytes, myelocytes, and promyelocytes. Blood smears from CBCs yielding IG's will be scanned manually for concordance. If this scan disagrees with the automated IG or if promyelocytes are noted, a manual differential will be performed. Immature Gran Absolute 0.03 0.00 - 0.04 x10(3)/[facility] Blood specimen (specimen) 03/11/2019 9:58 AM EDT 03/11/2019 10:23 AM EDT Narrative Resulting Agency Comment Spec In Lab Tal Eagle MD HEMATOLOGY ORDERA BLES [facility] [place] [address] * Hemogram (03/11/2019 9:58 AM EDT) White Blood Cell 7.7 4.0 - 9.5 x10(3)/[facility] Red Blood Cell 4.78 4.58 - 5.54 x10(6)/[facility] Hemoglobin 14.7 13.7 - 16.5 gm/dL [facility] Hematocrit 42.8 40.5 - 48.5 % [facility] Mean Cell Volume 89.5 82.9 - 93.1 [facility] Mean Cell Hemoglobin 30.8 27.5 - 32.1 pg [facility] Mean Cell Hemoglobin Concentration 34.3 32.0 - 35.7 gm/dL [facility] Platelet 251 145 - 357 x10(3)/[facility] RDW Standard Deviation 45.0 36.0 - 45.0 [facility] RDW coefficient of variation 13.6 11.4 - 13.8 % [facility] Mean Platelet Volume 10.1 7.6 - 12.9 [facility] NRBC% auto 0.0 % [facility] NRBC Absolute 0.000 0.000 - 0.000 x10(3)/[facility] Blood specimen (specimen) 03/11/2019 9:58 AM EDT 03/11/2019 10:23 AM EDT Narrative Resulting Agency Comment Spec In Lab Tal Eagle MD HEMATOLOGY ORDERA BLES Performing Organization Address City/[facility]/ZIP Co de Phone Number [facility] [place] [address] * Reticulocyte Count (03/11/2019 9:58 AM EDT) Reticulocyte % 2.2 0.7 - 2.6 % [facility] Retic Abs # 0.110 0.030 - 0.120 x10(6)/[facility] Immature Retic% 14.4 0.0 - 15.6 % [facility] Reticulated Hgb 35.8 31.3 - 40.2 pg [facility] Blood specimen (specimen) 03/11/2019 9:58 AM EDT 03/11/2019 10:23 AM EDT Narrative Resulting Agency Comment Spec In Lab Tal Eagle MD HEMATOLOGY ORDERA BLES Performing Organization Address [facility]/ZIP Co de Phone Number [facility] [place] [address] * (ABNORMAL) Comprehensive metabolic panel (non-fasting) (03/11/2019 9:58 AM EDT) Glucose 154 65 - 199 mg/dL [facility] Comment:Diabetes: >=200 mg/d L plus symptoms Blood Urea Nitrogen 19 10 - 20 mg/dL [facility] Creatinine 1.35 0.80 - 1.50 mg/dL [facility] Sodium 139 135 - 145 mmol/L [facility] Potassium 3.3(L) 3.5 - 5.0 mmol/L [facility] Comment: Please note: ??Patients with WBC >100,000 may have falsely elevated Potassium levels. ??For accurate Potassium quantification in these patients send serum separator tube (gold top) for subsequent determinations. ??Contact the Clinical Chemistry Laboratory if there are any questions. Chloride 100 98 - 107 mmol/L [facility] Carbon Dioxide 25 22 - 31 mmol/L [facility] Anion Gap 14 5 - 15 mmol/L [facility] Calcium 9.8 8.5 - 10.5 mg/dL [facility] Protein, Total 7.5 6.1 - 8.0 gm/dL [facility] Albumin 4.1 3.2 - 5.2 gm/dL [facility] Aspartate Aminotransferase 17 0 - 39 unit/L [facility] Alanine Aminotransferase 18 0 - 55 unit/L [facility] Alkaline Phosphatase 71 40 - 130 unit/L [facility] Bilirubin, Total 1.9(H) 0.2 - 1.3 mg/dL [facility] Est Glomerular Filtration Rate 53(L) >=60 mL/min/1. 73 m?? [facility] Comment: The eGFR was calculated using the CKD-EPI equation. As with all creatinine based estimates of kidney function, eGFR values calculated with the CKD-EPI equation are not accurate in patients with acute kidney failure, extremes of body mass or the acutely ill. http://Webcrunch/DHMCnkf eGFR 61 >=60 mL/min/1. 73 m?? [facility] Comment: The eGFR was calculated using the CKD-EPI equation. As with all creatinine based estimates of kidney function, eGFR values calculated with the CKD-EPI equation are not accurate in patients with acute kidney failure, extremes of body mass or the acutely ill. http://Webcrunch/DHMCnkf Blood specimen (specimen) 03/11/2019 9:58 AM EDT 03/11/2019 10:23 AM EDT Narrative Resulting Agency Comment Spec In Lab Tal Eagle MD CHEMISTRY ORDERAB LES [facility] [place] [address] * Cholesterol, total (03/11/2019 9:58 AM EDT) Cholesterol, Total 83 mg/dL [facility] Comment: Lower Risk: <200 mg/dL Average Risk: 200-239 mg/dL Higher Risk: >qz=270 mg/dL Lipid Interpretation See Note [facility] Comment: Lipid management should be guided by a patient? s ASCVD risk, goals and preferences. ACC/AHA Guidelines recommend high intensity statin if clinical ASCVD or LDL greater than or equal to 190 mg/dL. http://dotCloud.com/YCQ-VQM-Zdinzpgeu Adults aged 40-75 with LDL 70-189 mg/dL should have their 10 year ASCVD risk estimated with the ACC/AHA ASCVD risk consumer loan processor http://tools.acc.org/NKVUR-Bmnw-Fjormjwwl/ Statin should be discussed if risk greater [...] MD CHEMISTRY ORDERAB LES Performing Organization Address City/State/[facility] Co de Phone Number [facility] [place] [address] * (ABNORMAL) Magnesium (03/11/2019 9:58 AM EDT) Magnesium 0.57(L) 0.69 - 1.07 mmol/L [facility] Blood specimen (specimen) 03/11/2019 9:58 AM EDT 03/11/2019 10:23 AM EDT Narrative Resulting Agency Comment Spec In Lab Tal Eagle MD CHEMISTRY ORDERAB LES Performing Organization Address City/[facility]/ZIP Co de Phone Number [facility] [place] [address] * Phosphorus (03/11/2019 9:58 AM EDT) Phosphorus 2.8 2.5 - 4.5 mg/dL [facility] Blood specimen (specimen) 03/11/2019 9:58 AM EDT 03/11/2019 10:23 AM EDT Narrative Resulting Agency Comment Spec In Lab Tal Eagle MD CHEMISTRY ORDERAB LES Performing Organization Address [facility] Co de Phone Number [facility] [place] [address] * Uric acid (03/11/2019 9:58 AM EDT) Uric Acid 7.5 3.5 - 8.5 mg/dL [facility] Blood specimen (specimen) 03/11/2019 9:58 AM EDT 03/11/2019 10:23 AM EDT Narrative Resulting Agency Comment Spec In Lab Tal Eagle MD CHEMISTRY ORDERAB LES Performing Organization Address [facility] Co de Phone Number [facility] [place] [address] * Tacrolimus level (03/11/2019 9:58 AM EDT) Tacrolimus 8.3 ng/mL [facility] Comment: Trough therapeutic: ??5-15 ng/mL Performed by ultra-performance liquid chromatography tandem mass spectrometry (UPLCMS/MS). This test was developed and its performance characteristics determined by [facility]. It has not been cleared or [...] Lab Tal Eagle MD CHEMISTRY ORDERAB LES [facility] [place] [address] documented in this encounter Visit Diagnoses Diagnosis H/O kidney transplant Kidney replaced by transplant documented in this encounter Care Teams Manufacturing Plant Manager Relationship Specialty Start Date End Date Urbano Denis DO [address] [place] [address] PCP - General 09/03/12 03/17/22 Hai STANLEY,Ruchi Nurse Clinic Transplant Surgery 07/30/15 documented as of this encounter
--- OUTSIDE RECORDS SUMMARY | 2024-02-14 11:21 | XMS_ITS | Encounter Summary ---
Author Organization [facility] [place] [address] Care Team Providers Care Stoneworker Name Role Phone Adeel Urbano KIRBY Primary Care Provider Reason for Visit * Reason Comments Medication Refill Encounter Details Date Type Department Care Team (Late st Contact Info) Description 10/14/2019 Refill [place] [address] Tal Eagle MD [facility] [place] [address] Social History Tobacco Use Types Packs/Day Years [...] AM EDT Hospital Encounter Non[place] [address] Arrived documented as of this encounter Goals Goal Patient Goal Type Associated Problems Recent Progress Patient-Stated? Author [facility] Medication Compliance and Understanding Patient Facing Action Plan On track( 017 10:41 AM EDT) Selena Scott, [facility] Note: Patient Goal: Clear hepatitis C Timeframe to meet goal: within 12 weeks of therapy documented as of this encounter Visit Diagnoses Not on filedocumented in this encounter Care Teams Stoneworker Relationship Specialty Start Date End Date Urbano Denis DO [address] [place] [address] PCP - General 09/03/12 03/17/22 Ruchi Valles RN Nurse Clinic Transplant Surgery 07/30/15 documented as of this encounter
--- OUTSIDE RECORDS SUMMARY | 2024-02-14 11:21 | XMS_ITS | Encounter Summary ---
Author Organization [facility] [place] [address] Care Team Providers Care Geographic Information Systems Director Name Role Phone AdeelUrbano toscano Primary Care Provider [phone] Reason for Visit * Reason Onset Date Comments Medication Refill 05/04/2019 Encounter Details Date Type Department Care Team (Late st Contact Info) Description 05/04/2019 Refill Cardiology at [address] [address] Byron Brown MD [facility] [address] Medication Refill Social History Tobacco Use Types [...] Hospital Encounter Non-[place] [address] Arrived documented as of this encounter Goals Goal Patient Goal Type Associated Problems Recent Progress Patient-Stated? Author [facility] Medication Compliance and Understanding Patient Facing Action Plan On track( 017 10:41 AM EDT) Selena Scott, [facility] Note: Patient Goal: Clear hepatitis C Timeframe to meet goal: within 12 weeks of therapy documented as of this encounter Visit Diagnoses Diagnosis Atrial fibrillation with RVR - had flutter initially, then fib- Primary Atrial fibrillation documented in this encounter Care Teams Geographic Information Systems Director Relationship Specialty Start Date End Date Urbano Denis DO [address] [place], [place] [address]Y [facility] [address] [place] [address] PCP - General 09/03/12 03/17/22 Ruchi Valles RN Nurse Clinic Transplant Surgery 07/30/15 documented as of this encounter
--- OUTSIDE RECORDS SUMMARY | 2024-02-14 11:21 | XMS_ITS | Encounter Summary ---
Author Organization [facility] [place] [address] Care Team Providers Care Extractor Tender Raw Stock Name Role Phone Adeel Urbano KIRBY Primary Care Provider Encounter Details Date Type Department Care Team (Late st Contact Info) Description 09/07/2019 Orders Only [place] [phone] Dominique Jackson RN H/O kidney transplant Social History Tobacco [...] AM EDT Hospital Encounter Non[place] [phone] Arrived documented as of this encounter Goals Goal Patient Goal Type Associated Problems Recent Progress Patient-Stated? Author [facility] Medication Compliance and Understanding Patient Facing Action Plan On track( 017 10:41 AM EDT) No Selena Cisneros [facility] Note: Patient Goal: Clear hepatitis C Timeframe to meet goal: within 12 weeks of therapy documented as of this encounter Results * (ABNORMAL) Protein/Creatinine Ratio, urine (09/12/2019 10:23 AM EDT) Creatinine, Urine 107 mg/dL [facility] Protein, Urine 67(H) 0 - 12 mg/dL [facility] Protein / Creatinine Ratio, Urine 0.6 ratio [facility] Urine specimen (specimen) 09/12/2019 10:23 AM EDT 09/12/2019 10:32 AM EDT Narrative Resulting Agency Comment Spec In Lab Tal Eagle MD URINE ORDERABLES [facility] [place] [address] * (ABNORMAL) Urinalysis with reflex Culture (09/12/2019 10:23 AM EDT) Glucose, Urine Dipstick Negative Negative mg/dL [facility] Protein, Urine Dipstick 100(A) Negative mg/dL [facility] Bilirubin, [...] [facility] pH, Urn (dipstick) 6.5 5.0 - 8.0 [facility] Blood, Urine Dipstick Negative Negative mg/dL [facility] Ketone, Urine Dipstick Negative Negative mg/dL [facility] Nitrite, Urine Dipstick Negative Negative [facility] Leukocytes, Urine Dipstick Negative Negative [facility] Appearance, Urine Dipstick Clear Clear [facility] Specific [place] Urine Automated 1.022 1.002 - 1.030 [facility] Color, Urine Dipstick Yellow Yellow [facility] Reflex to Culture No [facility] Urine specimen (specimen) 09/12/2019 10:23 AM EDT 09/12/2019 10:31 AM EDT Narrative Resulting Agency Comment Spec In Lab Tal Eagle MD URINE ORDERABLES Performing Organization Address City/[facility]/ZIP Co de Phone Number [facility] [place] [address] * Creatinine, urine, random (09/12/2019 10:23 AM EDT) Creatinine, Urine 107 mg/dL [facility] Urine specimen (specimen) 09/12/2019 10:23 AM EDT 09/12/2019 10:32 AM EDT Narrative Resulting Agency Comment Spec In Lab Tal Eagle MD URINE ORDERABLES Performing Organization Address City/[facility]/ZIP Co de Phone Number [facility] [place] [address] * (ABNORMAL) Magnesium (09/12/2019 10:10 AM EDT) Magnesium 0.68(L) 0.69 - 1.07 mmol/L [facility] Blood specimen (specimen) 09/12/2019 10:10 AM EDT 09/12/2019 10:22 AM EDT Narrative Resulting Agency Comment Spec In Lab Tal Eagle MD CHEMISTRY ORDERAB LES [facility] [place] [address] * Phosphorus (09/12/2019 10:10 AM EDT) Phosphorus 2.5 2.5 - 4.5 mg/dL [facility] Blood specimen (specimen) 09/12/2019 10:10 AM EDT 09/12/2019 10:22 AM EDT Narrative Resulting Agency Comment Spec In Lab Tal Eagle MD CHEMISTRY ORDERAB LES Performing Organization Address [facility]/ZIP Co de Phone Number [facility] [place] [address] * PTH (09/12/2019 10:10 AM EDT) Parathyroid Hormone 51 15 - 65 pg/mL [facility] Blood specimen (specimen) 09/12/2019 10:10 AM EDT 09/12/2019 10:22 AM EDT Narrative Resulting Agency Comment Spec In Lab Tal Eagle MD CHEMISTRY ORDERAB LES Performing Organization Address [facility]/[place] Co de Phone Number [facility] [place] [address] * Reticulocyte Count (09/12/2019 10:10 AM EDT) Reticulocyte % 2.1 0.7 - 2.6 % [facility] Retic Abs # 0.100 0.030 - 0.120 x10(6)/mcL [facility] Immature Retic% 11.9 0.0 - 15.6 % [facility] Reticulated Hgb 35.8 31.3 - 40.2 pg [facility] Blood specimen (specimen) 09/12/2019 10:10 AM EDT 09/12/2019 10:22 AM EDT Narrative Resulting Agency Comment Spec In Lab Tal Eagle MD HEMATOLOGY ORDERA BLES Performing Organization Address City/[facility]/ZIP Co de Phone Number [facility] [place] [address] * Tacrolimus level (09/12/2019 10:10 AM EDT) Tacrolimus 5.4 ng/mL [facility] Comment: Trough therapeutic: ??5-15 ng/mL Performed by ultra-performance liquid chromatography tandem mass spectrometry (UPLCMS/MS). This test was developed and its performance characteristics determined by [facility]. It has not been cleared or approved by the FDA. The laboratory is regulated under CLIA as qualified to perform high-complexity testing. This test is used for clinical purposes. It should not be regarded as investigational or for research. Blood specimen (specimen) 09/12/2019 10:10 AM EDT 09/12/2019 1:29 PM EDT Narrative Resulting Agency Comment Spec In Lab Tal Eagle MD CHEMISTRY ORDERAB LES Performing Organization Address City/[facility]/[place] Co de Phone Number [facility] [place] [address] * Uric acid (09/12/2019 10:10 AM EDT) Uric Acid 6.7 3.5 - 8.5 mg/dL [facility] Blood specimen (specimen) 09/12/2019 10:10 AM EDT 09/12/2019 10:22 AM EDT Narrative Resulting Agency Comment Spec In Lab Tal Eagle MD CHEMISTRY ORDERAB LES Performing Organization Address [facility]/[place] Co de Phone Number [facility] [place] [address] * Vitamin B12 (09/12/2019 10:10 AM EDT) Vitamin B12 416 232 - 1,245 pg/mL [facility] Blood specimen (specimen) 09/12/2019 10:10 AM EDT 09/12/2019 10:22 AM EDT Narrative Resulting Agency Comment Spec In Lab Tal Eagle MD CHEMISTRY ORDERAB LES Performing Organization Address [facility]/[place] Co de Phone Number [facility] [place] [address] * 1,25-dihydroxycholecalciferol (09/12/2019 10:10 AM EDT) Vit D 1,25 Dihydroxy (NOVEMBER) 46 18 - 64 pg/mL [facility] Comment: ADDITIONAL INFORMATION This test was developed and its performance characteristics determined by [facility] in a manner consistent with CLIA requirements. This test has not been cleared or approved by the U.S. Food and Drug Administration. Test Performed by: [facility] [address] [place] [address] Fiberglass Laminator: Edinson Garcia M.D. Ph.D.; CLIA# [id number] Blood specimen (specimen) 09/12/2019 10:10 AM EDT 09/12/2019 4:17 PM EDT Narrative Resulting Agency Comment Spec In Lab Tal Eagle MD LAB SEND OUT ROCHELLE KORYLENORE Performing Organization Address City/[facility]/ZIP Co de Phone Number [facility] [place] [address] * (ABNORMAL) Vitamin D, 25-Hydroxy (09/12/2019 10:10 AM EDT) Vitamin D Total 25 OH 17(L) 30 - 100 ng/mL [facility] Comment: As of 2019, 25-hydroxyvitamin D testing has moved from the [employer] to the [facility]. No substantial change in measured values is expected. Blood specimen (specimen) 09/12/2019 10:10 AM EDT 09/12/2019 10:22 AM EDT Narrative Resulting Agency Comment Spec In Lab Tal Eagle MD CHEMISTRY ORDERAB LES Performing Organization Address City/[facility]/ZIP Co de Phone Number [facility] [place] [address] * Lipid Panel (Reflex Direct LDL) (09/12/2019 10:10 AM EDT) Cholesterol, Total 84 mg/dL [facility] Comment: Lower Risk: <200 mg/dL Average Risk: 200-239 mg/dL Higher Risk: >wh=110 mg/dL Triglyceride 104 mg/dL [facility] Comment: Average Risk/Lower Risk: <150 mg/dL Borderline High Risk: 150-199 mg/dL High Risk: 200-499 mg/dL Very High Risk: >ap=007 mg/dL HDL Cholesterol 40 mg/dL [facility] Comment: Males: ?? Higher Risk: <40 mg/dL Females: ?? HIgher Risk: <50 mg/dL LDL Cholesterol 23 mg/dL [facility] Comment: Lowest Risk: <100 mg/dL Lower Risk: 100-129 mg/dL Borderline High Risk: 130-159 mg/dL High Risk: 160-189 mg/dL Very High Risk: >ns=593 mg/dL Cholesterol/HDL Ratio 2.1 ratio [facility] Lipid Interpretation See Note [facility] Comment: Lipid management should be guided by a patient? s ASCVD risk, goals and preferences. ACC/AHA Guidelines recommend high intensity statin if clinical ASCVD or LDL greater than or equal to 190 mg/dL. http://[email or web address]/WMR-MSI-Ifcedfzbn Adults aged 40-75 with LDL 70-189 mg/dL should have their 10 year ASCVD risk estimated with the ACC/AHA ASCVD risk estimator printing http://tools.acc.org/XKAZU-Fpui-Oyanlglwx/ Statin should be discussed if risk greater [...] of ASCVD risk reduction. Blood specimen (specimen) 09/12/2019 10:10 AM EDT 09/12/2019 10:22 AM EDT Narrative Resulting Agency Comment Spec In Lab Tal Eagle MD CHEMISTRY ORDERAB LES [facility] [place] [address] * (ABNORMAL) Lipase (09/12/2019 10:10 AM EDT) Lipase 71(H) 0 - 60 unit/L [facility] Blood specimen (specimen) 09/12/2019 10:10 AM EDT 09/12/2019 10:22 AM EDT Narrative Resulting Agency Comment Spec In Lab Tal Eagle MD CHEMISTRY ORDERAB LES Performing Organization Address [facility]/[place] Co de Phone Number [facility] [place] [address] * Lavender Tube HOLD (09/12/2019 10:10 AM EDT) [facility] Lavender Hold Sample in lab. [facility] Blood specimen (specimen) 09/12/2019 10:10 AM EDT 09/12/2019 10:22 AM EDT Tal Eagle MD HEMATOLOGY ORDERA BLES Performing Organization Address [facility]/[place] Co de Phone Number [facility] [place] [address] * Iron and TIBC (09/12/2019 10:10 AM EDT) [facility] Iron 82 45 - 160 mcg/dL [facility] TIBC 269 250 - 450 mcg/dL [facility] Iron Saturation 30 20 - 50 % [facility] Blood specimen (specimen) 09/12/2019 10:10 AM EDT 09/12/2019 10:22 AM EDT Narrative Resulting Agency Comment Spec In Lab Tal Eagle MD CHEMISTRY ORDERAB LES Performing Organization Address [facility]/[place] Co de Phone Number [facility] [place] [address] * (ABNORMAL) Hemoglobin A1c (09/12/2019 10:10 AM EDT) [facility] Hemoglobin A1c 7.1(H) 4.3 - 5.6 % [facility] Comment: Reference Range: 4.3 [...] [id number] Estimated Average Glucose See note mg/dL [facility] Comment: Estimated Average Glucose [...] into estimated average glucose values. ??Diabetes Care 2008:31(8):8485-3904. Blood specimen (specimen) 09/12/2019 10:10 AM EDT 09/12/2019 10:23 AM EDT Narrative Resulting Agency Comment Spec In Lab Tal Eagle MD CHEMISTRY ORDERAB LES [facility] [place] [address] * Gold Tube HOLD (09/12/2019 10:10 AM EDT) [facility] Gold Hold Sample in lab. [facility] Blood specimen (specimen) 09/12/2019 10:10 AM EDT 09/12/2019 10:22 AM EDT Tal Eagle MD CHEMISTRY ORDERAB LES [facility] [place] [address] * Folate, serum (09/12/2019 10:10 AM EDT) [facility] Folate 9.3 4.8 - 24.2 ng/mL [facility] Blood specimen (specimen) 09/12/2019 10:10 AM EDT 09/12/2019 10:22 AM EDT Narrative Resulting Agency Comment Spec In Lab Tal Eagle MD CHEMISTRY ORDERAB LES Performing Organization Address City/[facility]/ZIP Co de Phone Number [facility] [place] [address] * Ferritin (09/12/2019 10:10 AM EDT) [facility] Ferritin 246 30 - 400 ng/mL [facility] Comment: Pediatric reference ranges not verified at [facility], interpret with caution. Reference ranges for females greater than 50 years of age approach values for men, i.e., 30-400 ng/mL. Blood specimen (specimen) 09/12/2019 10:10 AM EDT 09/12/2019 10:22 AM EDT Narrative Resulting Agency Comment Spec In Lab Tal Eagle MD CHEMISTRY ORDERAB LES [facility] [place] [address] * (ABNORMAL) CMP w/fasting Glucose (09/12/2019 10:10 AM EDT) [facility] Glucose Fasting 153(H) 65 - 99 mg/dL [facility] Comment: ?Fasting* Glucose Interpretive Criteria Normal [...] of Diabetes Mellitus, Position Statement from the [place] [employer]. ??Diabetes Care, Volume 33, Supplement 1, Jul 2009 Blood Urea Nitrogen 16 10 - 20 mg/dL [facility] Creatinine 1.43 0.80 - 1.50 mg/dL [facility] Sodium 142 135 - 145 mmol/L [facility] Potassium 3.7 3.5 - 5.0 mmol/L [facility] Comment: Please note: ??Patients with WBC >100,000 may have falsely elevated Potassium levels. ??For accurate Potassium quantification in these patients send serum separator tube (gold top) for subsequent determinations. ??Contact the Clinical Chemistry Laboratory if there are any questions. Chloride 103 98 - 107 mmol/L [facility] Carbon Dioxide 28 22 - 31 mmol/L [facility] Anion Gap 11 5 - 15 mmol/L [facility] Calcium 9.7 8.5 - 10.5 mg/dL [facility] Protein, Total 7.1 6.1 - 8.0 gm/dL [facility] Albumin 4.1 3.2 - 5.2 gm/dL [facility] Aspartate Aminotransferase 18 0 - 39 unit/L [facility] Alanine Aminotransferase 16 0 - 55 unit/L [facility] Alkaline Phosphatase 69 40 - 130 unit/L [facility] Bilirubin, Total 2.5(H) 0.2 - 1.3 mg/dL [facility] Est Glomerular Filtration Rate 49(L) >=60 mL/min/1. 73 m?? [facility] Comment: The eGFR was calculated using the CKD-EPI equation. As with all creatinine based estimates of kidney function, eGFR values calculated with the CKD-EPI equation are not accurate in patients with acute kidney failure, extremes of body mass or the acutely ill. [email or web address] CITYnkf eGFR 57(L) >=60 mL/min/1. 73 m?? [facility] Comment: The eGFR was calculated using the CKD-EPI equation. As with all creatinine based estimates of kidney function, eGFR values calculated with the CKD-EPI equation are not accurate in patients with acute kidney failure, extremes of body mass or the acutely ill. [email or web address] CITYnkf Blood specimen (specimen) 09/12/2019 10:10 AM EDT 09/12/2019 10:22 AM EDT Narrative Resulting Agency Comment Spec In Lab Tal Eagle MD CHEMISTRY ORDERAB LES Performing Organization Address [facility]/[place] Co de Phone Number [facility] [place] [address] * Amylase (09/12/2019 10:10 AM EDT) Amylase 46 28 - 100 unit/L [facility] Blood specimen (specimen) 09/12/2019 10:10 AM EDT 09/12/2019 10:22 AM EDT Narrative Resulting Agency Comment Spec In Lab Tal Eagle MD CHEMISTRY ORDERAB LES Performing Organization Address [facility]/ZIP Co de Phone Number [facility] [place] [address] documented in this encounter Visit Diagnoses Diagnosis H/O kidney transplant Kidney replaced by transplant documented in this encounter Care Teams Extractor Tender Raw Stock Relationship Specialty Start Date End Date Urbano Denis DO [address] [place] [address] PCP - General 09/03/12 03/17/22 Ruchi Valles RN Nurse Clinic Transplant Surgery 07/30/15 documented as of this encounter
--- OUTSIDE RECORDS SUMMARY | 2024-02-14 11:21 | XMS_ITS | Encounter Summary ---
Author Organization [facility] [place] [address] Care Team Providers Care Leaf Sticker Name Role Phone AdeelUrbano toscano Primary Care Provider [phone] Reason for Visit * Reason Onset Date Comments Medication Refill 04/06/2019 Encounter Details Date Type Department Care Team (Late st Contact Info) Description 04/06/2019 Refill Cardiology at [address] [phone] Byron Brown MD [facility] [place] [address] Medication Refill Social History Tobacco Use Types [...] EDT Hospital Encounter Non-Invasive [place] [address] Arrived documented as of this encounter Goals [...] on filedocumented in this encounter Care Teams Leaf Sticker Relationship Specialty Start Date End Date Urbano Denis DO [address] [place] [address] PCP - General 09/03/12 03/17/22 Ruchi Valles RN Nurse Clinic Transplant Surgery 07/30/15 documented as of this encounter
--- OUTSIDE RECORDS SUMMARY | 2024-02-14 11:21 | XMS_ITS | Encounter Summary ---
[place] [address] Care Team Providers Care Condenser Tube Tender Name Role Phone Urbano Denis DO Primary Care Provider Encounter Details Date Type Department Care Team (Late st Contact Info) Description 07/08/2019 Telephone Cardiology at [address] [phone] Anel Proctor RN Social History Tobacco Use [...] Telephone Encounter - Anel Proctor RN - 07/08/2019 5:22 PM EST Outgoing call to patient spouse who is asking for completion of the application form for [place] [employer]- Patient Assistance form for 2019. Form completed and it was signed along with a paper Rx for the Eliquis 5 mg - one BID for one year. Both of these items were sent via mail to the patient at confirmed home address. Mrs. Bolden was contacted by phone and is aware of above and will be watching her mail She has no other concerns at this time. Anel L. Cayuga RN, BSN Ambulatory Cardiology Department documented in this encounter Plan of Treatment Upcoming Encounters Date Type Department Care Team (Late st Contact Info) Description 04/15/2024 10:00 AM EDT Hospital Encounter [place] [address] Arrived documented as of this encounter Goals [...] on filedocumented in this encounter Care Teams Condenser Tube Tender Relationship Specialty Start Date End Date Urbano Denis DO [address] [place] [address] [address] [facility] [place] [address] PCP - General 09/03/12 03/17/22 Ruchi Valles RN Nurse Clinic Transplant Surgery 07/30/15 documented as of this encounter
--- OUTSIDE RECORDS SUMMARY | 2024-02-14 11:21 | XMS_ITS | Encounter Summary ---
[place] [address] Care Team Providers Care Senior Architectural Designer Name Role Phone Adeel Urbano KIRBY Primary Care Provider Encounter Details Date Type Department Care Team (Late st Contact Info) Description 12/30/2019 Telephone Cardiology at [address] [phone] Sera Aguillon RN Social History Tobacco Use Types Packs/Day [...] encounter Miscellaneous Notes * Telephone Encounter - Sera Aguillon RN - 12/30/2019 11:57 AM EDT Mara called in for Yash to follow-up about being able to discontinue the Plavix and Eliquis for a procedure. documented in this encounter Plan of Treatment Upcoming Encounters Date Type Department Care Team (Late st Contact Info) Description 04/15/2024 10:00 AM EDT Hospital Encounter Non[place] [address] Arrived documented as of this [...] filedocumented in this encounter Care Teams Senior Architectural Designer Relationship Specialty Start Date End Date Urbano Denis DO [address] [place] [address] PCP - General 09/03/12 03/17/22 Ruchi Valles RN Nurse Clinic Transplant Surgery 07/30/15 documented as of this encounter
--- OUTSIDE RECORDS SUMMARY | 2024-02-14 11:21 | XMS_ITS | Encounter Summary ---
Author Organization [facility] [place] [address] Care Team Providers Care Dinkey Brakeman Name Role Phone Adeel Urbano KIRBY Primary Care Provider Reason for Visit * Reason Comments Medication Refill Encounter Details Date Type Department Care Team (Late st Contact Info) Description 07/28/2019 Refill [place] [address] Tal Eagle MD [facility] [place] [address] Social History Tobacco Use Types Packs/Day Years [...] AM EDT Hospital Encounter Non-[place] [address] Arrived documented as of this encounter Goals [...] on filedocumented in this encounter Care Teams Dinkey Brakeman Relationship Specialty Start Date End Date Urbano Denis DO [address] [place] [address] PCP - General 09/03/12 03/17/22 Ruchi Valles RN Nurse Clinic Transplant Surgery 07/30/15 documented as of this encounter
--- OUTSIDE RECORDS SUMMARY | 2024-02-14 11:21 | XMS_ITS | Encounter Summary ---
Author Organization [facility] Address [facility] [place] [address] Care Team Providers Care Account Resolution Expert Name Role Phone Urbano Denis DO Primary Care Provider + [phone] Reason for Visit * Physical Therapy (Routine) - Specialty Diagnoses / Procedures Referred By Humberto flor Referred To Contact Diagnoses Left leg pain Jay Chakraborty, IVETH [facility] [place] [address] Referral ID Status Reason Start Date Expiration Date V isits Requested Visits Authorized [id number] Evaluate and Treat 05/30/2019 11/26/2019 12 12 Encounter Details Date Type Department Care Team (Latest Contact Info) Description 09/12/2019 11:00 AM EDT Office Visit [place] [address] [facility] [place] [address] H/O kidney transplant; Aftercare following organ transplant; Prophylactic [...] Sign Reading Time Taken Comments Blood Pressure 132/58 09/12/2019 11:51 AM EDT Pulse 58 09/12/2019 11:51 AM EDT Temperature - - Respiratory Rate - - Oxygen Saturation - - Inhaled Oxygen Concentration - - Weight 102.1 kg (225 lb) 09/12/2019 11:51 AM EDT Height - - Body Mass Index 32.28 05/30/2019 9:00 AM EST documented in this encounter Progress Notes * Tal Eagle MD - 09/12/2019 11:00 AM EDT Transplant Nephrology Clinic Follow up Note? PATIENT:??Ethel Akins? :??1950 ? HPI: ??69 y.o.??male??with PMHx significant for transplanted??Kidney 09/16/2015 due to DM, HTN; and s/p HCV successfully treated after tx Complications included ischemic post tx ureter, BK viremia, and enterococcal bacteremia with urosepsis, cardiomyopathy ? History of Present Illness: Interim hx reveals no hospitalizations, ED visits, new meds or allergies. Is having more GERD symptoms. 69??y.o. male w/ hx of HCV, DM, HTN who is s/p donor kidney transplant 09/16/15. Patient presents to transplant clinic for follow-up of his transplanted kidney. 09/16/2015. ?? 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 Previous Tx Hx: 0% PRA. Patient given Basliximab for induction. EBV +/+, CMV +/+; Rx post tx with Harvoni for hep C and he has cleared the i nfection. Active Ambulatory Problems Diagnosis Date Noted ??? [...] hepatitis) 08/25/2016 ??? Prophylactic immunotherapy 09/22/2016 ??? shelter current use of 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 drug 09/22/2016 ??? Vitamin D deficiency 09/20/2017 ??? Debility 10/05/2017 ??? Pain of right lower extremity 10/05/2017 ??? Obesity (BMI 30.0-34.9) 11/10/2017 ??? S/P R TKA 11/25/17 Dr. Dale 11/25/2017 ??? Hydronephrosis 06/16/2018 ??? Atrial fibrillation with RVR - had flutter initially, then fib 01/31/2019 ??? Hospital discharge follow-up 03/22/2019 ??? Left leg pain 05/30/2019 Resolved Ambulatory Problems Diagnosis Date Noted ??? ESRD (end stage renal disease) 04/27/2015 ??? Chronic kidney disease, stage V 05/29/2015 ??? Renal failure 09/16/2015 ??? Primary osteoarthritis of right knee 10/05/2017 Past Medical History: Diagnosis Date ??? Back pain ??? Colon polyp ??? CVA (cerebral vascular accident) ??? GERD (gastroesophageal reflux disease) ??? HTN (hypertension) ??? Microhematuria ??? Type 2 diabetes mellitus Past Surgical History: Procedure Laterality Date ??? PRO ANASTOMOSIS, AV, ANY SITE Left 05/09/2015 AV FISTULA CREATION, DIRECT HEMODIALYSIS, ANY SITE, EG ASHWINI FISTULA UPPER EXTREMITY performed by Que Amaro MD at [facility] OR ??? PRO CYSTOURETHROSCOPY, URETER CATHETER Left 06/17/2018 CYSTO, RETROGRADE, URETEROPYELOGRAPHY (WRVU 2.37) performed [facility] Edinson Grider III[facility] ??? PRO REIMPLANT URETER, SINGLE URETER Left 05/20/2016 @URETERONEOCYSTOSTOMY ANASTOMOSIS OF SINGLE URETER TO BLADDER performed by Santosh Arredondo MD at [facility] OR ??? PRO REIMPLANT URETER, SINGLE URETER N/A 05/20/2016 @URETERONEOCYSTOSTOMY ANASTOMOSIS OF SINGLE URETER TO BLADDER [facility] MD at [facility] OR ??? US RENAL TRANSPLANT LEFT Left 01/31/2019 US Renal Transplant Left 01/31/2019 [facility] RAD ULTRASOUND ??? US RENAL TRANSPLANT LEFT Left 02/07/2019 US Renal Transplant Left 02/07/2019 [facility] RAD ULTRASOUND Current Outpatient Medications: ??? glipiZIDE XL (Glucotrol XL) 10 mg [...] Z94.0, Disp: 270 capsule, Rfl: 3 ??? calciTRIol (Rocaltrol) 0.5 mcg Capsule, TAKE ONE CAPSULE BY MOUTH EVERY DAY, Disp: 90 capsule, Rfl: 2 ??? metoprolol succinate XL (Toprol-XL) 25 mg Tablet Sustained Release 24 hr, Take 1 tablet by mouth daily., Disp: 90 tablet, Rfl: 3 ??? potassium phosphate, monobasic, (K-PHOS ORIGINAL) 500 mg Tablet, Soluble, Take 2 tablets by mouth 2 times daily. DISSOLVE IN WATER PRIOR TO ADMINISTRATION, Disp: 360 tablet, Rfl: 3 ??? Magnesium Gluconate 27 mg magnesium (500 mg) Tablet, Take two tablets in am- one tablet noon - two tablets evening, Disp: 450 tablet, Rfl: 3 ??? apixaban (ELIQUIS) 5 mg Tablet, Take 1 tablet by mouth 2 times daily., Disp: 180 tablet, Rfl: 3 ??? atorvastatin (LIPITOR) 40 mg Tablet, Take 1 tablet by mouth every evening., Disp: 90 tablet, Rfl: 3 ??? nitroGLYcerin [...] mg by mouth daily., Disp: , Rfl: No [...] for diabetics, every 5 for non diabetics [place] kidney ultrasound looking for renal cell CA, [...] numbness/ tingling in extremities. ?? PHYSICAL EXAM: ?? Vitals Office Visit from 09/12/2019 in Solid Organ Transplant at [facility] Weight 102.1 kg (225 lb) Heart Rate 58 BP 132/58 Patient Position Sitting Appearance - Alert, Comfortable. Skin - No exanthem. HEENT - Sclera white. Mucous membranes moist. Chest: Lungs clear to ausculatation w/o wheezes/ rhonchi/ crackles. Heart - S1 and S2 clear w/o murmur, gallop, or rub. JVP not elevated. Abd - Soft. + BS. No bruit. Non tender. Ext - Warm. No cyanosis. No dependent edema. Neuro - No asterixis. ?? Results for ETHEL AKINS ( ) as of 09/20/2019 06:26 Ref. Range 09/12/2019 10:10 09/12/2019 10:23 09/12/2019 10:23 WBC Latest Ref Range: 4.0 - 9.5 x10(3)/mcL 7.5 RBC Latest Ref Range: 4.58 - 5.54 x10(6)/mcL 4.99 Hemoglobin Latest Ref Range: 13.7 - 16.5 gm/dL 15.3 Hematocrit Latest Ref Range: 40.5 - 48.5 % 45.3 MCV Latest Ref Range: 82.9 - 93.1 fL 90.8 MCH Latest Ref Range: 27.5 - 32.1 pg 30.7 MCHC Latest Ref Range: 32.0 - 35.7 gm/dL 33.8 RDWSD Latest Ref Range: 36.0 - 45.0 fL 43.4 RDWCV Latest Ref Range: 11.4 - 13.8 % 13.2 Platelets Latest Ref Range: 145 - 357 x10(3)/mcL 261 MPV Latest Ref Range: 7.6 - 12.[address] % Latest Ref Range: 0.7 - 2.6 % 2.[address] Abs Latest Ref Range: 0.030 - 0.120 x10(6)/mcL 0.100 Immature Retic% Latest Ref Range: 0.0 - 15.6 % 11.9 Reticulated Hgb Latest Ref Range: 31.3 - 40.2 pg 35.8 nRBC % Auto Latest Units: % 0.0 nRBC Abs Auto Latest Ref Range: 0.000 - 0.000 x10(3)/mcL 0.000 Neutr Abs (ANC) Latest Ref Range: 1.70 - 6.10 x10(3)/mcL 5.15 Neutrophils % Latest Units: % 68.3 Immature Gran % Latest Units: % 0.40 Lymphocytes % Latest Units: % 19.6 Monocytes % Latest Units: % 7.6 Eosinophils % Latest Units: % 3.3 Basophils % Latest Units: % 0.8 Ayesha Gran Abs Latest Ref Range: 0.00 - 0.04 x10(3)/mcL 0.03 Lymphocytes Abs Latest Ref Range: 0.9 - 3.2 x10(3)/mcL 1.5 Monocyte Abs Latest Ref Range: 0.3 - 0.9 x10(3)/mcL 0.6 Eosinophils Abs Latest Ref Range: 0.0 - 0.4 x10(3)/mcL 0.2 Basophils Abs Latest Ref Range: 0.0 - 0.1 x10(3)/mcL 0.1 Sodium Latest Ref Range: 135 - 145 mmol/L 142 Potassium Latest Ref Range: 3.5 - 5.0 mmol/L 3.7 Chloride Latest Ref Range: 98 - 107 mmol/L 103 CO2 Latest Ref Range: 22 - 31 mmol/L 28 Anion Gap Latest Ref Range: 5 - 15 mmol/L 11 BUN Latest Ref Range: 10 - 20 mg/dL 16 Creatinine Latest Ref Range: 0.80 - 1.50 mg/dL 1.43 eGFR Latest Ref Range: >=60 mL/min/1.73 m?? 49 (L) eGFR Latest Ref Range: >=60 mL/min/1.73 m?? 57 (L) Calcium Latest Ref Range: 8.5 - 10.5 mg/dL 9.7 Magnesium Latest Ref Range: 0.69 - 1.07 mmol/L 0.68 (L) Phosphorus Latest Ref Range: 2.5 - 4.5 mg/dL 2.5 Uric Acid Latest Ref Range: 3.5 - 8.5 mg/dL 6.7 Glucose Fasting Latest Ref Range: 65 - 99 mg/dL 153 (H) Hemoglobin A1C Latest Ref Range: 4.3 - 5.6 % 7.1 (H) Est Avg Gluc Latest Units: mg/dL See note Total Protein Latest Ref Range: 6.1 - 8.0 gm/dL 7.1 Albumin Latest Ref Range: 3.2 - 5.2 gm/dL 4.1 Total Bilirubin Latest Ref Range: 0.2 - 1.3 mg/dL 2.5 (H) Alk Phos Latest Ref Range: 40 - 130 unit/L 69 AST Latest Ref Range: 0 - 39 unit/L 18 ALT Latest Ref Range: 0 - 55 unit/L 16 Amylase Latest Ref Range: 28 - 100 unit/L 46 Lipase Latest Ref Range: 0 - 60 unit/L 71 (H) U Protein Ran Latest Ref Range: 0 - 12 mg/dL 67 (H) Chol, Total Latest Units: mg/dL 84 HDL Latest Units: mg/dL 40 Chol/HDL Ratio Latest Units: ratio 2.1 Triglycerides Latest Units: mg/dL 104 LDL Cholesterol Latest Units: mg/dL 23 Lipid Interpretation Unknown See Note Folate Lvl Latest Ref Range: 4.8 - 24.2 ng/mL 9.3 Iron Latest Ref Range: 45 - 160 mcg/dL 82 TIBC Latest Ref Range: 250 - 450 mcg/dL 269 Iron Saturation Latest Ref Range: 20 - 50 % 30 Ferritin Latest Ref Range: 30 - 400 ng/mL 246 Vitamin B-12 Latest Ref Range: 232 - 1,245 pg/mL 416 Vit D 1,25 Latest Ref Range: 18 - 64 pg/mL 46 25-OH Vit D Total Latest Ref Range: 30 - 100 ng/mL 17 (L) Tacrolimus Lvl Latest Units: ng/mL 5.4 PTH Latest Ref Range: 15 - 65 pg/mL 51 Color UA Latest Ref Range: Yellow Yellow Appearance UA Latest Ref Range: Clear Clear Spec Tillson UA Latest Ref Range: 1.002 - 1.030 1.022 pH UA Latest Ref Range: 5.0 - 8.0 6.5 Protein UA Latest Ref Range: Negative mg/dL 100 (A) Glucose UA Latest Ref Range: Negative [...] Latest Ref Range: 0 - 3 /HPF 0 RBC UA Latest Ref Range: 0 - 3 /HPF 4 (H) Squam Epith UA Latest Ref Range: <=4 /HPF 1 Culture Reflexed Unknown No Prot/Cre Ratio Latest Units: ratio 0.6 U Creatinine Latest Units: mg/dL 107 107 BKV Urine Result Unknown Not Detected BKV Urine Interp Unknown BK Virus Urine Re... ? IMPRESSION/ RECOMMENDATIONS:??Mr. Akins is a??69?yr old gentleman w/ hx of kidney transplant who presents to clinic for his annual f/u. Transplant Status -s/p donor kidney transplant -Creatinine stable?? -Drinks??2L??fluids/day -Patient now has PTDM treatment and is under care with his??PCP??and on Glipizide ? Immunosuppression -Prograf, Cellcept ? PO4/Mg - Kphos.??decr to 2 tabs bid - Magnesium??gluconate??to 1000mg BID; increased today to [phone] TID - He can take liquid antacid OTC or zantac or Tums??for GERD as advised last year as well ?? Erythrocytosis - cont' to observe No need of RAAS inhibition , continue hydration Close follow up? Hypertension: BP is stable; not on antihypertensive Encourage to check BP at home?? -??on??Flomax ? Hepatitis C -on Harvoni?treatment -Viral load undetectable after treatment??in June?? CV disease, AF/Afib Followed by Dr. Brown ? [id number] labs f/u in September 2020 ?? ? Discussion with the patient and/or family concerned the following: ?Diagnostic results or recommended studies ?Prognosis; ?Risks and benefits of management; ?Instructions for management; ?Compliance with treatment; ?Risk factor reduction; ?Patient and family education. ? 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 documented in this encounter Plan of Treatment Upcoming Encounters Date Type Department Care Team (Late st Contact Info) Description 04/15/2024 10:00 AM EDT Hospital Encounter Non-Invasive [place] [phone] Arrived documented as of this encounter Goals [...] replaced by transplant Aftercare following organ transplant Prophylactic immunotherapy Need for prophylactic immunotherapy documented in this encounter Care Teams Account Resolution Expert Relationship Specialty Start Date End Date Urbano Denis DO [facility] [address] [place] [address] PCP - General 09/03/12 03/17/22 Hai STANLEY,Ruchi Nurse Clinic Transplant Surgery 07/30/15 documented as of this encounter
--- OUTSIDE RECORDS SUMMARY | 2024-02-14 11:21 | XMS_ITS | Encounter Summary ---
Author Organization [facility] Address [facility] [place] [address] Care Team Providers Care Corporate Compliance Director Name Role Phone Adeel Urbano KIRBY Primary Care Provider + [phone] Reason for Visit * Reason Comments Hypertension Atrial Fibrillation Ekg Encounter Details Date Type Department Care Team (Late st Contact Info) Description 03/31/2019 2:00 PM EDT Office Visit Cardiology at [address] [address] Byron Damon MD [facility] [place] [address] Atrial fibrillation with RVR - had flutter initially, then fib (Primary Dx); Hypertension secondary to other renal disorders Social [...] Sign Reading Time Taken Comments Blood Pressure 151/63 03/31/2019 1:43 PM EDT Pulse 54 03/31/2019 1:43 PM EDT Temperature - - Respiratory Rate - - Oxygen Saturation 99% 03/31/2019 1:43 PM EDT Inhaled Oxygen Concentration - - Weight 100.3 kg (221 lb 3.2 oz) 03/31/2019 1:43 PM EDT Height 177.8 cm (5' 10) 03/31/2019 1:43 PM EDT Body Mass Index 31.74 03/31/2019 1:43 PM EDT documented in this encounter Progress Notes * Byron Damon MD - 03/31/2019 2:00 PM EDT Images from the original note were not included. Formerly [facility] [place] [address] [place] [address] CARDIOLOGY/ VASCULAR OUTPATIENT NOTE Cody Denis DO SUBJECTIVE: S/p kidney transplant in 2015. Last seen in cardiology in 12/2015. The patient did not have a significant cardiac history but was admitted to [facility] in January 2019 with newly diagnosed AFlutter and a NSTEMI. He underwent cardiac cath and PCI to an OM lesion. LVEF was initially 30% (while in AFL with RVR) - but improved one week later to 45%. His hospitalization was complicated by a subsequent infection (enterococcus bacteremia) and he required 2 weeks of IV antibiotics. Other details are as below. Today, he is here with his who manages most of his medical issues. He states that he has not felt any palpitations or significant shortness of breath. He has not usedany SL NTG. ECG in clinic demonstrates sinus arrhythmia. He is currently on ASA, plavix, and apixaban. He has some bruising in his arm. No other bleeding. Feels reasonably well overall. 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 From my prior note 2015: ?? 65 year old male 3 months s/p kidney transplant. There were underlying concerns from the transplantteam that his cardiac status might have changed as an explanation for the rise in Cr. This was going on for many weeks and unexplained. However, a few days ago - he was found to have an obstruction and relief of the obstruction has resulted in a significant improvement of Cr. Given that his prior DSE from 6 months ago was normal and he has no new cardiac symptoms - I would defer any further cardiac testing at this time. If the Cr does not normalize, would consider repeat resting echo to reassess LV function, RV function, and PASP. From the discharge summary Feb 2019: ??History of Presentation: 68??y.o. 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 ??Found to be in aflutter with 2:1 with rates in 150's. ??He did not feel his heart going rapidly. ??Denied chest pain. ??Quite active - walks stairs etc. ?Found to have RAY. ??Had been drinking 3 liters fluid a day. ??Did not have any diarrhea. ??Had poor appetite. ??Nausea and some vomiting in ED. ??Received nitroglycerin and heartburn went from 10 to 0. ??Currently remains in sinus ?? Per him??there was a question of atrial fibrillation??when had a stroke (). ??Of note MRI had showed small lacunar --had DAVEY and month long holter without evidence of afib. ??Of note he has not had any symptoms of palpitations. ??No syncopal events. ??He has never had a heart catheterization. ??Neg stress test in 2014 ?? Note has had hard to control GERD for 50 years. ??Stopped taking PPI about 3 weeks ago. ??Of note does eat rolaids like candy. ??Current heartburn feels like his baseline. ? Received 10 mg IV diltiazem with no change, then received 25 mg IV diltiazem --I was in room --looked like he went into afib then converted to sinus shortly after. ?? Didn't feel??like he was??dehydrated, ??At least 3 liters of fluid daily. ??No diarrhea or any other source of fluid loss. ??Denies any??fevers or chills. ??[place] bloated in abdomen since yesterday.?No pain with eating.??Vomiting in ED -- given nitroglycerin and his heartburn went from 10 to 0 ?? Only made about 150cc total urine in 24 hours prior to coming in Already made 250cc in ED ?? He had renal transplant US which looked ok ?? Hospital Course: ?? # NSTEMI # Atrial flutter with rapid ventricular response On arrival patient was noted to be in atrial flutter. Patient's troponins were elevated on admission and trending upwards, with EKG notable for new lateral T wave inversions. Diltiazem was given in the ED, which lead to resumption of normal sinus rhythm. Patient was started on heparin, aspirin, andcontinued on his home Plavix. Diltiazem was discontinued and replaced with metoprolol for rate control. There was concern for demand ischemia in the setting of rapid aflutter vs. a primary ischemic injury. TTE showed segmental wall abnormalities and an EF of 30%, and a decision was made to pursue cardiac catheterization for an NSTEMI. Mr. Bolden in advertently ate breakfast on the morning of 02/02, so catheter time was set for later that afternoon. 90% occlusion was seen in OM1, and a stent was placed. Mr. Bolden did well after catheterization with no complications. He was also started on apixaban due to [id number] score of 6, with no complications of bleeding after initiation. A referalis being placed for outpatient cardiac rehab. He should follow-up with cardiology in two months. # Acute Hypoxemic respiratory failure/Volume overload/ #Acute HFrEF:? Mr. Bolden required high flow oxygen on admission, and lung exam was notable for crackles. This was felt to be primarily due to his NSTEMI and newly reduced ejection fraction. He had several episodes of hypoxia throughout his stay. Prior to his catheterization, he received IV fluids for renal protection, and began to desat down to the mid to low 80s, with a resp rate in the high 30s-40s, requiri ng up to 80L High Flow oxygen. A stat CXR showed no interval changes from previous CXRs while inpatient, with continued low lung volumes and diffuse vascular blurring likely due to mild pulmonary edema and atelectasis.This event was managed on furosemide 20mg IV and DuoNebs. As oxygen was slowly down- titrated throughout his stay, patient was started on a furosemide drip at 10mL/hr from the evening of 02/03 to the morning of 02/04. Patient put out a total of ~6L over those 24 hours, with improvementin lung crackles on physical exam. It was noted that sometimes the desaturations happened at night,and patient reported a history of ARIELLA. [place] Sleepiness Scale was notable for increased sleepiness; it was felt that patient might benefit from resumption of CPAP in the outpatient setting. On 02/05,patient was able to maintain O2 sats above 87% without supplemental oxygen and was discharged home off of furosemide. VNAs will be coming to his home to assist with daily weights. Patient should see his PCP in the next few days. ?? # Transplanted kidney/RAY on CKD Stage 3:??Mr. Bolden presented with a creatinine of 1.99, elevated from his baseline of 1.2. Tacrolimus level acceptable. He had also been complaining of decreased urine output. It was felt that RAY was likely due to decreased perfusion from NSTEMI and atrial flutter with rapid ventricular response. Prior to his catheterization, Mr. Boldne was given fluids with bicarb for renal protection in the setting of dye use; however, this was turned off prior to the procedure due to his increasing oxygen requirements, as detailed above. Creatinine overall trended downwards over the course of his stay, with occasional elevations in the setting of diuretic use. He was discharged with a creatinine of 1.43. Mr. Bolden should follow-up with Dr. Eagle in 2 weeks. # DM2: Mr. Bolden's diabetes was managed on his home glipizide and sliding scale insulin throughout his stay with no issues. We discontinued the long- acting version and replaced it with a shorter acting version at discharge due to his underlying CKD. ?? From his second hospitalization a few days later: #Sepsis #Enterococcus bacteremia #Pyelonephritis Mr. Bolden presented with fevers and leukocytosis suspicious for infection. He was started on vancomycin and ceftazidime for broad spectrum coverage. Possible sources of infection considered on admission included his lungs as he also had some respiratory distress, his urine as UA was positive forWBCs and rare bacteria. CT showed perinephric stranding of his kidney transplant concerning for pylenephritis. Ceftazidime was switched to cefepime for adequate anaerobic coverage. TTE was also performed to rule out endocarditis; no vegetations were seen. Outside hospital blood cultures returned positive for enterococcus. Infectious disease was consulted and antibiotics were changed to vancomycinand Zosyn. Urine cultures returned positive for enterococcus as well; source of infection presumed to be urinary. Mr. Bolden endorsed improvement daily, with fevers resolving on 02/08. Sensitivies returned growing pansensitive enterococcus. ID recommended a 14 day course of IV ampicillin (end date of 02/21). On the morning of discharge, blood cultures from admission on 02/06 showed no growth at 4 days. Mr. Bolden was discharged to acute rehab. ?? #RAY in setting of CKD #Transplanted kidney Mr. Bolden presented with a creatinine of 1.68, elevated from his discharge creatinine from his last admission two days prior of 1.4. The acute RAY was felt to be due to cardio-renal syndrome in the setting of his recent NSTEMI with superimposed sepsis. Mycophenylate was held in the setting of his acute infection; tacrolimus was continued. CD4:CD8 ratio was appropriate and he did not require dose adjustment. IgG was elevated and patient did not require infusion. Patient was diuresed throughout his stay for both his pulmonary symptoms and to relieve venous congestion in his kidneys. Creatinine downtrended throughout his stay. When blood cultures showed no growth at 3 days, mycophenylate was restarted. On the morning of discharge, creatinine was 1.2, equivalent to Mr. Bolden's baseline. ?? # Diarrhea/Fecal Incontinence Mr. Bolden experienced several episodes of fecal incontinence in the beginning of his hospitalization. In the setting of antibiotic use, he was placed on contact precautions and tested for C diff. C diff returned negative. Over the course of his hospitalization, Mr. Bolden was able to regain continence; however, he continued to have episodes of loose stools. This was felt to most likely be due to his bacteremia and antibiotic use. ?? #acute hypoxic resp failure #acute cardiogenic pulm edema #acute on chronic systolic heart failure Mr. Bolden presented with acute hypoxic respiratory failure requiring high flow oxygen. In the setting of his fever, pneumonia was considered. CXR showed patchy opacities in the bilateral lungs, consistent with pulmonary edema. The most likely cause of his hypoxia was felt to be fluid overload, as Mr. Bolden had received IV fluids on route to the hospital and had a history of a recent NSTEMI with decreased EF. Mr. Bolden was diuresed throughout his stay, each day requiring less oxygen to maintain O2 sats. On the morning of his discharge, he did not require supplemental oxygen. He was discharged on 20mg Lasix QAM. ?? #DMII Mr. Bolden's diabetes was managed on sliding scale insulin throughout his hospitalization. His home glipizide was held in the setting of his sepsis, and restarted on discharge. ?? #Hypothyroidism His hypothyroidism was managed on his home dose of Synthroid throughout his hospitalization withoutissues.? #aflutter #NSTEMI Repeat TTE showed improvement in EF, from 30% to 40-50%.Throughout his stay, he was managed on his apixaban, aspirin, clopidogrel, and atorvastatin without issues. His metoprolol was held in the setting of sepsis. PAST MEDICAL HISTORY Patient Active Problem List Diagnosis ??? Hospital discharge follow-up ??? Atrial fibrillation with RVR - had flutter initially, then fib ??? Hydronephrosis ??? S/P R TKA 11/25/17 Dr. Dale ??? Obesity (BMI 30.0-34.9) ??? Debility ??? Pain of right lower extremity ??? Vitamin D deficiency ??? 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 nursing home current use of 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 drug ??? CAH [...] kidney injury) ??? Kidney transplant infection ??? HCV (hepatitis C virus) ??? Hepatitis C virus infection ??? Essential hypertension Overview: ICD10 Update Auto Replacement ??? 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 DM type 2 (diabetes mellitus, type 2) ??? Hypertension ??? DJD (degenerative joint disease) ??? Hematuria Meds: Current Outpatient Medications Medication Sig Dispense Refill ??? glipiZIDE (GLUCOTROL XL) 5 mg Tablet Extended Rel 24 hr ??? aspirin 81 mg Tablet, Chewable Take 81 mg by mouth daily. 30 tablet 3 ??? atorvastatin (LIPITOR) 40 mg Tablet Take 1 tablet by mouth every evening. 90 tablet 3 ??? metoprolol succinate (TOPROL-XL) 25 mg Tablet Sustained Release 24 hr Take 1 tablet by mouth daily. 30 tablet 12 ??? nitroGLYcerin (NITROSTAT) 0.4 mg Tablet, Sublingual Place 1 tablet under the tongue every 5 minutes as needed for Chest pain. 90 tablet 12 ??? tamsulosin (FLOMAX) 0.4 mg Capsule Take 0.4 mg by mouth daily. ??? acetaminophen (TYLENOL) 500 mg Tablet Take 1,000 mg by mouth every 8 hours as needed for Pain. ??? mycophenolate (CELLCEPT) 250 mg Capsule Take 1 capsule by mouth 2 times daily. Kidney Transplant ICD Code Z94.0 60 capsule 8 ??? tacrolimus (PROGRAF) 1 mg Capsule TAKE TWO CAPSULES BY MOUTH EVERY MORNING, TAKE ONE CAPSULE BYMOUTH NIGHTLY . 90 capsule 8 ??? potassium phosphate, monobasic, (K-PHOS ORIGINAL) 500 mg Tablet, Soluble Take 2 tablets by mouth 2 times daily. DISSOLVE IN WATER PRIOR TO ADMINISTRATION 540 tablet 3 ??? Magnesium Gluconate 27 mg magnesium (500 mg) Tablet TAKE TWO TABLETS BY MOUTH TWICE A DAY (Patient taking differently: Indications: 2 tabs in the am 1 tab in the afternoon and 2 tabs at night) 360 tablet 3 ??? calciTRIol (ROCALTROL) 0.5 mcg Capsule TAKE ONE CAPSULE BY MOUTH EVERY DAY 90 capsule 3 ??? polyethylene glycol (MIRALAX) 17 gram Powder in Packet Take 17 g by mouth 2 times daily. Take to maintain normal bowel pattern while taking narcotic pain medication. ??? levothyroxine (SYNTHROID) 137 mcg Tablet Take 137 mcg by mouth daily. ??? ascorbic acid, vitamin C, (VITAMIN C) 500 mg Tablet Take 1 tablet by mouth 3 times daily. 30 tablet 3 ??? clopidogrel (PLAVIX) 75 mg Tablet Take 75 mg by mouth daily. ??? furosemide (LASIX) 20 mg Tablet Take 1 tablet by mouth daily. (Patient not taking: Reported on 03/31/2019) OBJECTIVE: BP 151/63 Pulse 54 Ht 177.8 cm (5' 10) Wt 100.3 kg (221 lb 3.2 oz) SpO2 99% BMI 31.74 kg/m?? Physical Exam: General: well developed, well nourished HEENT: PERRLA Neck: supple, JVP normal Lungs: clear to ascultation Cardiac: RRR, no murmurs, rubs or gallops Abdomen: nontender, nondistended Extremities: normal ROM, No edema. Neuro: alert and oriented x 3, normal muscle strength Skin: no new rashes Feb 07, 2019 Echo: ?? 1. Limited TTE today 2. There is [...] and segmental wall motion abnomalities have improved. ASSESSMENT / PLAN: 68 year old male with a history of kidney transplant in 2016. Now with recent NSTEMI in the contextof atrial flutter and infection. Cardiac cath with PCI to OM. Normal LVEF. Remains on triple therapy at this time. Active issues: #CAD/CHF: reasonable to stop ASA 81. Continue plavix and apixaban. Needs plavix for one year (untilAu2019). He is on BB and high intensity [...] need a follow-up echo for LV function. #PAF: remains in NSR, but history of mild CVA/TIA and AFL. Continue anticoagulation. Low dose BBlocker with adequate rate control. #plan for follow-up in 6 months or prn. documented in this encounter Plan of Treatment Upcoming Encounters Date Type Department Care Team (Late st Contact Info) Description 04/15/2024 10:00 AM EDT Hospital Encounter Non-Invasive [place] [id number] Arrived documented as of this encounter Goals Goal Patient Goal Type Associated Problems Recent Progress Patient-Stated? Author DH Home Medication Compliance and Understanding Patient Facing Action Plan On track( 017 10:41 AM EDT) No Selena Cisneros, [facility] Note: Patient Goal: Clear hepatitis C Timeframe to meet goal: within 12 weeks of therapy documented as of this encounter Procedures Procedure Name Priority Date/Time Associated Diagnosis Comments EKG 12-LEAD Routine 03/31/2019 1:58 PM EDT Atrial fibrillation with RVR - had flutter initially, then fib documented in this encounter Results * EKG 12 Lead (03/31/2019 1:58 PM EDT) Ventricular rate 60 BPM MUSE SYSTEM Atrial Rate 63 BPM MUSE SYSTEM P-R Interval 176 ms MUSE SYSTEM QRS Duration 112 ms MUSE SYSTEM Q-T Interval 444 ms MUSE SYSTEM QTC Calculated (Bezet) 444 ms MUSE SYSTEM Calculated R [place] -61 degrees MUSE SYSTEM Calculated T [place] 39 degrees MUSE SYSTEM INTERPRETATION Sinus rhythm with marked sinus arrhythmia Left anterior fascicular block Minimal voltage criteria for LVH, may be normal variant Abnormal ECG When compared with ECG of 08-FEB-2019 15:18, Premature supraventricular complexes are no longer Present Nonspecific T wave abnormality no longer evident in Anterior leads Confirmed by MD DAMON SALVATORE ([id number]) on 03/31/2019 5:50:25 PM MUSE SYSTEM 03/31/2019 1:58 PM EDT 03/31/2019 5:50 PM EDT Byron Damon MD ECG ORDERABLES MUSE SYSTEM documented in this encounter Visit Diagnoses Diagnosis Atrial fibrillation with RVR - had flutter initially, then fib- Primary Atrial fibrillation Hypertension secondary to other renal disorders documented in this encounter Care Teams Corporate Compliance Director Relationship Specialty Start Date End Date Urbano Denis DO [address] [place] [address] PCP - General 09/03/12 03/17/22 Ruchi Valles RN Nurse Clinic Transplant Surgery 07/30/15 documented as of this encounter
--- OUTSIDE RECORDS SUMMARY | 2024-02-14 11:21 | XMS_ITS | Encounter Summary ---
[place] [address] Care Team Providers Care Plastics Fitter Name Role Phone Urbano Denis DO Primary Care Provider [phone] Reason for Referral * Physical Therapy (Routine) - Specialty Diagnoses / Procedures Referred By Humberto flor Referred To Contact Diagnoses Left leg pain [place] [address] Referral ID Status Reason Start Date Expiration Date V isits Requested Visits Authorized [id number] Evaluate and Treat 05/30/2019 11/26/2019 12 12 Reason for Visit * Reason Comments Back Pain * Consultation (Routine) - Closed Specialty Diagnoses / Procedures Referred By Humberto flor Referred To Contact [facility] Diagnoses Spinal stenosis, site unspecified SPINE: Lumbar stenosis/MRI (L) 04/28/19 in e- Sonu Vanegas MD [address] [place] [address] [facility] [place] [address] Referral ID Status Reason Start Date Expiration Date Visits Re quested Visits Authorized [id number] Closed 05/10/2019 05/09/2020 1 1 Encounter Details Date Type Department Care Team (Late st Contact Info) Description 05/30/2019 9:00 AM EST Office Visit [facility] [address] Jay Chakraborty, RESIN FILTERER [facility] [place] [id number] Left leg pain Social History Tobacco Use Types Packs/Day Years [...] Sign Reading Time Taken Comments Blood Pressure 154/53 05/30/2019 9:00 AM EST Pulse 52 05/30/2019 9:00 AM EST Temperature - - Respiratory Rate - - Oxygen Saturation - - Inhaled Oxygen Concentration - - Weight 99.8 kg (220 lb) 05/30/2019 9:00 AM EST Height 177.8 cm (5' 10) 05/30/2019 9:00 AM EST Body Mass Index 31.57 05/30/2019 9:00 AM EST documented in this encounter Progress Notes * Jay Chakraborty, IVETH - 05/30/2019 9:00 AM EST SUBJECTIVE: Cody Bolden is a 68 y.o. [...] small bouts of incontinence. Patient lives in 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 Past medical history is extensive and well documented in his problem list including DM, OK this February and received a stent, and as ly noted he has had a kidney transplant [...] mutually agreed to proceed as outlined below. PLAN: 1/I did offer spine specially physical [...] that we would need to get his chain machine operator's approval to holdapixaban prior to injection and [...] but both his apixaban use status post OK with stent and he is chronic immunosuppression would need to be addressed with respect risks balanced against the potential benefits of surgery. documented in this encounter Plan of Treatment Upcoming Encounters Date Type Department Care Team (Late st Contact Info) Description 04/15/2024 10:00 AM EDT Hospital Encounter [place] [address] Arrived Scheduled Referrals Name Type Priority Associated Diagnoses Orde r Schedule Referral to Physical Therapy Outpatient Referral Routine Left leg pain Ordered: 05/30/2019 documented as of this encounter Goals Goal Patient Goal Type Associated Problems Recent Progress Patient-Stated? Author Home Medication Compliance and Understanding Patient Facing Action Plan On track( 017 10:41 AM EDT) Selena Scott [facility] Note: Patient Goal: Clear hepatitis C Timeframe to meet goal: within 12 weeks of therapy documented as of this encounter Visit Diagnoses Diagnosis Left leg pain Pain in limb documented in this encounter Care Teams Plastics Fitter Relationship Specialty Start Date End Date Urbano Denis DO [address] [place] [address] PCP - General 09/03/12 03/17/22 Ruchi Valles RN Nurse Clinic Transplant Surgery 07/30/15 documented as of this encounter
--- OUTSIDE RECORDS SUMMARY | 2024-02-14 11:21 | XMS_ITS | Encounter Summary ---
Author Organization [facility] [place] [address] Care Team Providers Care Casing Trimmer Name Role Phone Urbano Denis DO Primary Care Provider Encounter Details Date Type Department Care Team (Late st Contact Info) Description 09/19/2019 Telephone Cardiology at [address] [phone] Matti-Giovanna Hawkins, RN Social History Tobacco Use Types Packs/Day [...] Miscellaneous Notes * Telephone Encounter - Giovanna Chino RN - 09/19/2019 6:11 PM EDT Pt has requested to have his upcoming appt with Dr. Brown on 10/06/19 cxl and re- scheduled. Pt was advised to not make any changes to his medications as he is taking Plavix (lifelong) and Apixaban. Explained to pt the difference between the two medications and he should not change anything without calling first or unless he is having a problem with bleeding. Pt verbalizes understanding and requeststo just cxl his appt and have it re-scheduled. Will send message to schedulers to call pt back and re-schedule appt with Dr. Brown. documented in this encounter Plan of Treatment Upcoming Encounters Date Type Department Care Team (Late st Contact Info) Description 04/15/2024 10:00 AM EDT Hospital Encounter Non-[place]vasive [place] [phone] Arrived documented as of this encounter Goals [...] filedocumented in this encounter Care Teams Casing Trimmer Relationship Specialty Start Date End Date Urbano Denis DO [address] [place] [address] [address] [facility] [address] [place] [address] PCP - General 09/03/12 03/17/22 Ruchi Valles RN Nurse Clinic Transplant Surgery 07/30/15 documented as of this encounter
--- OUTSIDE RECORDS SUMMARY | 2024-02-14 11:21 | XMS_ITS | Encounter Summary ---
Author Organization [facility] [place] [address] Care Team Providers Care Radiological Metallurgist Name Role Phone AdeelUrbano toscano Primary Care Provider Encounter Details Date Type Department Care Team (Late st Contact Info) Description 04/06/2019 Orders Only Cardiology at [address] [phone] Byorn Brown MD [facility] [place] [place] [address] Social History Tobacco Use Types Packs/Day Years [...] AM EDT Hospital Encounter [place] [phone] Arrived documented as of this encounter Goals [...] on filedocumented in this encounter Care Teams Radiological Metallurgist Relationship Specialty Start Date End Date AdeelUrbanoDO [address] [place] [address] PCP - General 09/03/12 03/17/22 Ruchi Valles RN Nurse Clinic Transplant Surgery 07/30/15 documented as of this encounter
--- OUTSIDE RECORDS SUMMARY | 2024-02-14 11:21 | XMS_ITS | Encounter Summary ---
[place] [address] Care Team Providers Care Case Coordinator Name Role Phone Adeel Urbano KIRBY Primary Care Provider + [phone] Reason for Visit * Reason Onset Date Comments Medication Refill Medication Refill 02/14/2020 Encounter Details Date Type Department Care Team (Late st Contact Info) Description 02/06/2020 [place] [phone] [place] [address] Atrial fibrillation with RVR - had flutter initially, then fib; Coronary artery disease, angina presence unspecified, unspecified vessel or lesion type, unspecified whether [place] or transplanted heart Social History Tobacco Use [...] AM EDT Hospital Encounter Non-Invasive [place]iology [place] [phone] Arrived documented as of this encounter Goals Goal Patient Goal Type Associated Problems Recent Progress Patient-Stated? Author DH Home Medication Compliance and Understanding Patient Facing Action Plan On track( 017 10:41 AM EDT) Selena Scott, [facility] Note: Patient Goal: Clear hepatitis C Timeframe to meet goal: within 12 weeks of therapy documented as of this encounter Results * EKG 12 Lead (02/17/2020 2:13 PM EDT) Ventricular rate 51 BPM MUSE SYSTEM Atrial Rate 51 BPM MUSE SYSTEM P-R Interval 200 ms MUSE SYSTEM QRS Duration 120 ms MUSE SYSTEM Q-T Interval 472 ms MUSE SYSTEM QTC Calculated (Bezet) 435 ms MUSE SYSTEM Calculated P [place] 49 degrees MUSE SYSTEM Calculated R [place] -65 degrees MUSE SYSTEM Calculated T [place] -5 degrees MUSE SYSTEM INTERPRETATION Sinus bradycardia Left anterior fascicular block Left ventricular hypertrophy with QRS widening Abnormal ECG When compared with ECG of 31-MAR-2019 13:58, No significant change was found Confirmed by MD Marjan, [place] ([id number]) on 02/17/2020 5:16:28 PM MUSE SYSTEM 02/17/2020 2:13 PM EDT 02/17/2020 5:16 PM EDT Danny Hicks MD ECG ORDERABLES MUSE SYSTEM documented in this encounter Visit Diagnoses Diagnosis Atrial fibrillation with RVR - had flutter initially, then fib Atrial fibrillation Coronary artery disease, angina presence unspecified, unspecified vessel or lesion type, unspecified whether [place] or transplanted heart documented in this encounter Care Teams Case Coordinator Relationship Specialty Start Date End Date Urbano Denis DO [address] [place] [address] PCP - General 09/03/12 03/17/22 Ruchi Valles RN Nurse Clinic Transplant Surgery 07/30/15 documented as of this encounter
--- OUTSIDE RECORDS SUMMARY | 2024-02-14 11:21 | XMS_ITS | Encounter Summary ---
Author Organization [facility] [place] [address] Care Team Providers Care Shop Superintendent Name Role Phone Urbano Denis DO Primary Care Provider Encounter Details Date Type Department Care Team (Late st Contact Info) Description 02/22/2019 Notes Only Infectious Disease at [facility] [place] [phone] Carmenza Shaw RN Social History Tobacco Use Types Packs/Day [...] as of this encounter Progress Notes * Carmenza Shaw RN - 02/22/2019 2:12 PM EDT Infectious Disease/OPAT Program PIV/PICC Removal External Location PIV line was removed on 03/24/19. PIV line was removed by nursing staff at [facility]. Patient completed his IV ABX course at [facility] and was discharged. MARK Lynn, RN, ACM-RN OPAT Program documented in this encounter Plan of Treatment Upcoming Encounters Date Type Department Care Team (Late st Contact Info) Description 04/15/2024 10:00 AM EDT Hospital Encounter Non[place] [phone] Arrived documented as of this encounter Goals Goal Patient Goal Type Associated Problems Recent Progress Patient-Stated? Author DH Home Medication Compliance and Understanding Patient Facing Action Plan On track( 017 10:41 AM EDT) Selena Scott, [facility] Note: Patient Goal: Clear hepatitis C Timeframe to meet goal: within 12 weeks of therapy documented as of this encounter Visit Diagnoses Not on filedocumented in this encounter Care Teams Shop Superintendent Relationship Specialty Start Date End Date Urbano Denis DO [address] [place] [address] PCP - General 09/03/12 03/17/22 Ruchi Valles RN Nurse Clinic Transplant Surgery 07/30/15 documented as of this encounter
--- OUTSIDE RECORDS SUMMARY | 2024-02-14 11:21 | XMS_ITS | Encounter Summary ---
Author Organization [facility] Address [facility] [place] [address] Care Team Providers Care Market Development Trainer Name Role Phone AdeelUrbano toscano Primary Care Provider + [phone] Reason for Visit * Reason Onset Date Comments Medication Refill 02/07/2020 Encounter Details Date Type Department Care Team (Late st Contact Info) Description 02/07/2020 Refill Cardiology at [address] [phone] Byron Brown MD [facility] [place] [address] Medication Refill Social History Tobacco Use Types [...] Telephone Encounter - Herlinda Li RN - 02/08/2020 7:53 AM EDT Requested Prescriptions Pending Prescriptions Disp Refills ??? atorvastatin (Lipitor) 40 mg Tablet 90 tablet 3 Sig: Take 1 tablet by mouth every evening. Received refill request from Pharmacy. THV with Dr. Brown 11-24-2019 pt to remain on med. Planned FUV in about 6 months. Refill prepped and forwarded to provider for authorization. Herlinda Li RN 4A Cardiology documented in this encounter Plan of Treatment Upcoming Encounters Date Type Department Care Team (Late st Contact Info) Description 04/15/2024 10:00 AM EDT Hospital Encounter Non-Invasive [place] [phone] Arrived documented as of this encounter Goals [...] this encounter Visit Diagnoses Diagnosis Coronary artery disease, angina presence unspecified, unspecified vessel or lesion type, unspecified whether [place] or transplanted heart documented in this encounter Care Teams Market Development Trainer Relationship Specialty Start Date End Date Urbano Denis DO [address] [place] [address] PCP - General 09/03/12 03/17/22 Ruchi Valles RN Nurse Clinic Transplant Surgery 07/30/15 documented as of this encounter
--- OUTSIDE RECORDS SUMMARY | 2024-02-14 11:21 | XMS_ITS | Encounter Summary ---
Author Organization [facility] [place] [address] Care Team Providers Care Sales Attendant Building Materials Name Role Phone Urbano Denis DO Primary Care Provider + [phone] Reason for Visit * Physical Therapy (Routine) - Specialty Diagnoses / Procedures Referred By Humberto flor Referred To Contact Diagnoses Left leg pain Jay Chakraborty, PROP WORKER [facility] [place] [address] Referral ID Status Reason Start Date Expiration Date V isits Requested Visits Authorized [id number] Evaluate and Treat 05/30/2019 11/26/2019 12 12 Encounter Details Date Type Department Care Team (Latest Contact Info) Description 09/12/2019 10:00 AM EDT Laboratory Appointment Lab [address] [place] [id number] H/O kidney transplant; BK viremia Social History Tobacco Use Types Packs/Day Years [...] AM EDT Hospital Encounter [place] [address] Arrived documented as of this encounter Goals Goal Patient Goal Type Associated Problems Recent Progress Patient-Stated? Author DH Home Medication Compliance and Understanding Patient Facing Action Plan On track( 017 10:41 AM EDT) Selena Scott, [facility] Note: Patient Goal: Clear hepatitis C Timeframe to meet goal: within 12 weeks of therapy documented as of this encounter Procedures Procedure Name Priority Date/Time Associated Diagnosis Comments URINALYSIS MICROSCOPIC EXAM STAT 09/12/2019 10:23 AM EDT HC BK VIRUS QUANT PCR,URINE STAT 09/12/2019 10:23 AM EDT BK viremia HC PROTEIN, QUANTITATIVE, URINE STAT 09/12/2019 10:23 AM EDT H/O kidney transplant HC CREATININE - NON BLOOD STAT 09/12/2019 10:23 AM EDT H/O kidney transplant URINALYSIS WITH REFLEX CULTURE STAT 09/12/2019 10:23 AM EDT H/O kidney transplant MISCELLANEOUS LAB REQUEST Routine 09/12/2019 10:10 AM EDT BK viremia HC PARATHYROID HORMONE(PTH INTACT STAT 09/12/2019 10:10 AM EDT H/O kidney transplant MISC SENDOUT Routine 09/12/2019 10:10 AM EDT CMP W/FASTING GLUCOSE STAT 09/12/2019 10:10 AM EDT H/O kidney transplant HEMOGRAM STAT 09/12/2019 10:10 AM EDT H/O kidney transplant DIFFERENTIAL, AUTOMATED STAT 09/12/2019 10:10 AM EDT H/O kidney transplant GOLD TUBE HOLD STAT 09/12/2019 10:10 AM EDT H/O kidney transplant LAVENDER TUBE HOLD STAT 09/12/2019 10 :10 AM EDT H/O kidney transplant HC FK-506 (TACROLIMUS) STAT 0 10:10 AM EDT H/O kidney transplant HC IRON BINDING CAPACITY STAT 09/12/2019 10:10 AM EDT H/O kidney transplant HC PCH 1,25 DI-OH VIT. STAT 0 10:10 AM EDT H/O kidney transplant HC VITAMIN D TOTAL-25 HYDROXY STAT 09/12/2019 10:10 AM EDT H/O kidney transplant HC RETIC,AUTO INCLUDES RETHE & IRF STAT 09/12/2019 10:10 AM EDT H/O kidney transplant HC CBC,PLT & AUTO DIFF STAT 0 10:10 AM EDT H/O kidney transplant HC URIC ACID, SERUM STAT 09/12/2019 1 0:10 AM EDT H/O kidney transplant HC PHOSPHORUS, SERUM STAT 09/12/2019 10:10 AM EDT H/O kidney transplant HC MAGNESIUM, SERUM STAT 09/12/2019 1 0:10 AM EDT H/O kidney transplant HC LIPASE STAT 09/12/2019 10:10 AM EDT H/O kidney transplant HC HEMOGLOBIN A1C STAT 09/12/2019 10: 10 AM EDT H/O kidney transplant HC FOLATE, SERUM STAT 09/12/2019 10:1 0 AM EDT H/O kidney transplant HC FERRITIN, SERUM STAT 09/12/2019 10 :10 AM EDT H/O kidney transplant HC VITAMIN B12 SERUM STAT 09/12/2019 10:10 AM EDT H/O kidney transplant HC AMYLASE STAT 09/12/2019 10:10 AM EDT H/O kidney transplant LIPID PANEL (REFLEX DIRECT LDL) STAT 09/12/2019 10:10 AM EDT H/O kidney transplant documented in this encounter Results * (ABNORMAL) Urinalysis Microscopic Exam (09/12/2019 10:23 AM EDT) RBC, Urine 4(H) 0 - 3 /HPF [facility] WBC, Urine 0 0 - 3 /HPF [facility] Squamous Epithelial Cells Raw Data, Urine 1 <=4 /HPF [facility] Urine specimen (specimen) 09/12/2019 10:23 AM EDT 09/12/2019 10:31 AM EDT Narrative Resulting Agency Comment Spec In Lab Tal Eagle MD URINE ORDERABLES [facility] [place] [address] * BKV Quant Urine (09/12/2019 10:23 AM EDT) BKV Urine Result Not Detected [facility] BKV Urine Interp BK Virus Urine Result Interpretation Result: BK Virus not detected Specimen type: urine Assay Range: 2.80-7.80 log copies/mL (6.28x10^2 - 6.28x10^7 copies/mL) Methods: Quantitative real-time polymerase chain reaction (PCR) of viral DNA isolated from plasma was performed using React[employer] BKV analyte-specific reagents and the [employer] System that automates both nucleic acid isolation [...] its performance characteristics determined by the [facility] [employer] [facility] at [facility]. It has not been cleared or approved by the FDA. The laboratory is regulated under CLIA as qualified to perform high-complexity testing. This test is used for clinical purposes. It should not be regarded as investigational or for research. [facility] Comment: [VERIFIED DATE]09.17.19 Verified By:Tal Cleaning (Electronic Signature) Urine specimen (specimen) 09/12/2019 10:23 AM EDT 09/12/2019 11:59 AM EDT Narrative Resulting Agency Comment Spec In Lab Tal Eagle MD MOLECULAR ORDERAB LES Performing Organization Address City/[facility]/ZIP Co de Phone Number [facility] [address] * (ABNORMAL) Protein/Creatinine Ratio, urine (09/12/2019 10:23 AM EDT) Creatinine, Urine 107 mg/dL [facility] Protein, Urine 67(H) 0 - 12 mg/dL [facility] Protein / Creatinine Ratio, Urine 0.6 ratio [facility] Urine specimen (specimen) 09/12/2019 10:23 AM EDT 09/12/2019 10:32 AM EDT Narrative Resulting Agency Comment Spec In Lab Tal Eagle MD URINE ORDERABLES Performing Organization Address City/[facility]/ZIP Co de Phone Number [facility] [place] [address] * (ABNORMAL) Urinalysis with reflex Culture (09/12/2019 10:23 AM EDT) Glucose, Urine Dipstick Negative Negative mg/dL [facility] Protein, Urine Dipstick 100(A) Negative mg/dL [facility] Bilirubin, [...] [facility] pH, Urn (dipstick) 6.5 5.0 - 8.0 [facility] Blood, Urine Dipstick Negative Negative mg/dL [facility] Ketone, Urine Dipstick Negative Negative mg/dL [facility] Nitrite, Urine Dipstick Negative Negative [facility] Leukocytes, Urine Dipstick Negative Negative [facility] Appearance, Urine Dipstick Clear Clear [facility] Specific [place] Urine Automated 1.022 1.002 - 1.030 [facility] Color, Urine Dipstick Yellow Yellow [facility] Reflex to Culture No [facility] Urine specimen (specimen) 09/12/2019 10:23 AM EDT 09/12/2019 10:31 AM EDT Narrative Resulting Agency Comment Spec In Lab Tal Eagle MD URINE ORDERABLES Performing Organization Address City/[facility]/ZIP Co de Phone Number [facility] [place] [address] * Creatinine, urine, random (09/12/2019 10:23 AM EDT) Creatinine, Urine 107 mg/dL [facility] Urine specimen (specimen) 09/12/2019 10:23 AM EDT 09/12/2019 10:32 AM EDT Narrative Resulting Agency Comment Spec In Lab Tal Eagle MD URINE ORDERABLES Performing Organization Address City/[facility]/ZIP Co de Phone Number [facility] [place] [address] * Misc Sendout (09/12/2019 10:10 AM EDT) [facility] Note [facility] Comment: The ordered test is: BKV Antibody Titer Test performed by: [facility], [address] [place] [address] See Scanned Report. Blood specimen (specimen) Venous Draw / Unknown 09/12/2019 10:10 AM EDT 09/12/2019 1:39 PM EDT Tal Eagle MD LAB SEND OUT ROCHELLE JENNINGS [facility] [address] * Differential, Automated (09/12/2019 10:10 AM EDT) Neutrophil % 68.3 % [facility] Neutrophil Absolute 5.15 1.70 - 6.10 x10(3)/[facility] Lymph % 19.6 % [facility] Lymphocytes Abs 1.5 0.9 - 3.2 x10(3)/[facility] Monocyte % 7.6 % [facility] Monocyte Abs 0.6 0.3 - 0.9 x10(3)/[facility] Eos % 3.3 % [facility] Eosinophils Abs 0.2 0.0 - 0.4 x10(3)/[facility] Basophil % 0.8 % [facility] Baso Absolute 0.1 0.0 - 0.1 x10(3)/[facility] Immature Gran % 0.40 % [facility] Blood specimen (specimen) 09/12/2019 10:10 AM EDT 09/12/2019 10:22 AM EDT Narrative Resulting Agency Comment Spec In Lab Tal Eagle MD HEMATOLOGY ORDERA BLES Performing Organization Address City/[facility]/ZIP Co de Phone Number [facility] [place] [address] * Hemogram (09/12/2019 10:10 AM EDT) White Blood Cell 7.5 4.0 - 9.5 x10(3)/[facility] Red Blood Cell 4.99 4.58 - 5.54 x10(6)/[facility] Hemoglobin 15.3 13.7 - 16.5 gm/dL [facility] Hematocrit 45.3 40.5 - 48.5 % [facility] Mean Cell Volume 90.8 82.9 - 93.1 fL [facility] Mean Cell Hemoglobin 30.7 27.5 - 32.1 pg [facility] Mean Cell Hemoglobin Concentration 33.8 32.0 - 35.7 gm/dL [facility] Platelet 261 145 - 357 x10(3)/[facility] RDW Standard Deviation 43.4 36.0 - 45.0 [facility] RDW coefficient of variation 13.2 11.4 - 13.8 % [facility] Mean Platelet Volume 9.7 7.6 - 12.9 fL [facility] NRBC% auto 0.0 % [facility] NRBC Absolute 0.000 0.000 - 0.000 x10(3)/[facility] Blood specimen (specimen) 09/12/2019 10:10 AM EDT 09/12/2019 10:22 AM EDT Narrative Resulting Agency Comment Spec In Lab Tal Eagle MD HEMATOLOGY ORDERA BLES Performing Organization Address City/[facility]/ZIP Co de Phone Number [facility] [place] [address] * Miscellaneous Lab request (09/12/2019 10:10 AM EDT) Label Request received in lab. [facility] Blood specimen (specimen) 09/12/2019 10:10 AM EDT 09/12/2019 10:23 AM EDT Narrative Resulting Agency Comment Spec In Lab Tal Eagle MD LAB SEND OUT ORDE RABLES [facility] [address] * (ABNORMAL) Magnesium (09/12/2019 10:10 AM EDT) Magnesium 0.68(L) 0.69 - 1.07 mmol/L [facility] Blood specimen (specimen) 09/12/2019 10:10 AM EDT 09/12/2019 10:22 AM EDT Narrative Resulting Agency Comment Spec In Lab Tal Eagle MD CHEMISTRY ORDERAB LES Performing Organization Address City/[facility]/ZIP Co de Phone Number [facility] [place] [address] * Phosphorus (09/12/2019 10:10 AM EDT) Phosphorus 2.5 2.5 - 4.5 mg/dL [facility] Blood specimen (specimen) 09/12/2019 10:10 AM EDT 09/12/2019 10:22 AM EDT Narrative Resulting Agency Comment Spec In Lab Tal Eagle MD CHEMISTRY ORDERAB LES Performing Organization Address City/[facility]/ZIP Co de Phone Number [facility] [address] * PTH (09/12/2019 10:10 AM EDT) Parathyroid Hormone 51 15 - 65 pg/mL [facility] Blood specimen (specimen) 09/12/2019 10:10 AM EDT 09/12/2019 10:22 AM EDT Narrative Resulting Agency Comment Spec In Lab Tal Eagle MD CHEMISTRY ORDERAB LES Performing Organization Address [facility] de Phone Number [facility] [place] [address] * Reticulocyte Count (09/12/2019 10:10 AM EDT) Reticulocyte % 2.1 0.7 - 2.6 % [facility] Retic Abs # 0.100 0.030 - 0.120 x10(6)/mcL [facility] Immature Retic% 11.9 0.0 - 15.6 % [facility] Reticulated Hgb 35.8 31.3 - 40.2 pg [facility] Blood specimen (specimen) 09/12/2019 10:10 AM EDT 09/12/2019 10:22 AM EDT Narrative Resulting Agency Comment Spec In Lab Tal Eagle MD HEMATOLOGY ORDERA BLES Performing Organization Address [facility] de Phone Number [facility] [place] [address] * Tacrolimus level (09/12/2019 10:10 AM EDT) Tacrolimus 5.4 ng/mL [facility] Comment: Trough therapeutic: ??5-15 ng/mL Performed by ultra-performance liquid chromatography tandem mass spectrometry (UPLCMS/MS). This test was developed and its performance characteristics determined by [facility]. It has not been cleared or [...] MD CHEMISTRY ORDERAB LES Performing Organization Address [facility] Co de Phone Number [facility] [place] [address] * Uric acid (09/12/2019 10:10 AM EDT) Uric Acid 6.7 3.5 - 8.5 mg/dL [facility] Blood specimen (specimen) 09/12/2019 10:10 AM EDT 09/12/2019 10:22 AM EDT Narrative Resulting Agency Comment Spec In Lab Tal Eagle MD CHEMISTRY ORDERAB LES Performing Organization Address [facility] Co de Phone Number [facility] [place] [address] * Vitamin B12 (09/12/2019 10:10 AM EDT) Vitamin B12 416 232 - 1,245 pg/mL [facility] Blood specimen (specimen) 09/12/2019 10:10 AM EDT 09/12/2019 10:22 AM EDT Narrative Resulting Agency Comment Spec In Lab Tal Eagle MD CHEMISTRY ORDERAB LES Performing Organization Address [facility] Co de Phone Number [facility] [place] [address] * 1,25-dihydroxycholecalciferol (09/12/2019 10:10 AM EDT) Vit D 1,25 Dihydroxy (NOVEMBER) 46 18 - 64 pg/mL [facility] Comment: ADDITIONAL INFORMATION This test was developed and its performance characteristics determined by [facility] in a manner consistent with CLIA requirements. This test has not been cleared or approved by the U.S. Food and Drug Administration. Test Performed by: [facility] - [address] [address] [employer] Winder: Edinson Garcia M.D. Ph.D.; CLIA# [id number] Blood specimen (specimen) 09/12/2019 10:10 AM EDT 09/12/2019 4:17 PM EDT Narrative Resulting Agency Comment Spec In Lab Tal Eagle MD LAB SEND OUT ORDE DICK Performing Organization Address [facility] Co de Phone Number [facility] [place] [address] * (ABNORMAL) Vitamin D, 25-Hydroxy (09/12/2019 10:10 AM EDT) Vitamin D Total 25 OH 17(L) 30 - 100 ng/mL [facility] Comment: As of 2019, 25-hydroxyvitamin D testing has moved from the Patient [employer] to the [employer] June. No substantial change in measured values is expected. Blood specimen (specimen) 09/12/2019 10:10 AM EDT 09/12/2019 10:22 AM EDT Narrative Resulting Agency Comment Spec In Lab Tal Eagle MD CHEMISTRY ORDERAB LES Performing Organization Address [facility] Co de Phone Number [facility] [place] [address] * Lipid Panel (Reflex Direct LDL) (09/12/2019 10:10 AM EDT) [facility] Cholesterol, Total 84 mg/dL [facility] Comment: Lower Risk: <200 mg/dL Average Risk: 200-239 mg/dL Higher Risk: >iu=211 mg/dL Triglyceride 104 mg/dL [facility] Comment: Average Risk/Lower Risk: <150 mg/dL Borderline High Risk: 150-199 mg/dL High Risk: 200-499 mg/dL Very High Risk: >gf=717 mg/dL HDL Cholesterol 40 mg/dL [facility] Comment: Males: ?? Higher Risk: <40 mg/dL Females: ?? HIgher Risk: <50 mg/dL LDL Cholesterol 23 mg/dL [facility] Comment: Lowest Risk: <100 mg/dL Lower Risk: 100-129 mg/dL Borderline High Risk: 130-159 mg/dL High Risk: 160-189 mg/dL Very High Risk: >jo=974 mg/dL Cholesterol/HDL Ratio 2.1 ratio [facility] Lipid Interpretation See Note [facility] Comment: Lipid management should be guided by a patient? s ASCVD risk, goals and preferences. ACC/AHA Guidelines recommend high intensity statin if clinical ASCVD or LDL greater than or equal to 190 mg/dL. http://[employer].com/VFC-SNV-Vxbupjcha Adults aged 40-75 with LDL 70-189 mg/dL should have their 10 year ASCVD risk estimated with the ACC/AHA ASCVD risk non garment sewing machine operator http://tools.acc.org/PSWZA-Mylo-Ydubacmkc/ Statin should be discussed if risk greater [...] MD CHEMISTRY ORDERAB LES Performing Organization Address [facility] Co de Phone Number [facility] [place] [address] * (ABNORMAL) Lipase (09/12/2019 10:10 AM EDT) Lipase 71(H) 0 - 60 unit/L [facility] Blood specimen (specimen) 09/12/2019 10:10 AM EDT 09/12/2019 10:22 AM EDT Narrative Resulting Agency Comment Spec In Lab Tal Eagle MD CHEMISTRY ORDERAB LES Performing Organization Address [facility]/ZIP Co de Phone Number [facility] [place] [address] * Lavender Tube HOLD (09/12/2019 10:10 AM EDT) Pathologist [facility] Lavender Hold Sample in lab. [facility] Blood specimen (specimen) 09/12/2019 10:10 AM EDT 09/12/2019 10:22 AM EDT Tal Eagle MD HEMATOLOGY ORDERA BLES Performing Organization Address City/[facility]/ZIP Co de Phone Number [facility] [place] [address] * Iron and TIBC (09/12/2019 10:10 AM EDT) [facility] Iron 82 45 - 160 mcg/dL [facility] TIBC 269 250 - 450 mcg/dL [facility] Iron Saturation 30 20 - 50 % [facility] Blood specimen (specimen) 09/12/2019 10:10 AM EDT 09/12/2019 10:22 AM EDT Narrative Resulting Agency Comment Spec In Lab Tal Eagle MD CHEMISTRY ORDERAB LES Performing Organization Address [facility] Co de Phone Number [facility] [place] [address] * (ABNORMAL) Hemoglobin A1c (09/12/2019 10:10 AM EDT) [facility] Hemoglobin A1c 7.1(H) 4.3 - 5.6 % [facility] Comment: Reference Range: 4.3 - [...] Mellitus, Diabetes Care 2013; 36: Suppl. 1, S6774 Estimated Average Glucose See note mg/dL [facility] Comment: Estimated Average Glucose [...] into estimated average glucose values. ??Diabetes Care 2008:31(8):7656-4122. Blood specimen (specimen) 09/12/2019 10:10 AM EDT 09/12/2019 10:23 AM EDT Narrative Resulting Agency Comment Spec In Lab Tal Eagle MD CHEMISTRY ORDERAB LES Performing Organization Address City/State/[facility] Co de Phone Number [facility] [place] [address] * Gold Tube HOLD (09/12/2019 10:10 AM EDT) Gold Hold Sample in lab. [facility] Blood specimen (specimen) 09/12/2019 10:10 AM EDT 09/12/2019 10:22 AM EDT Tal Eagle MD CHEMISTRY ORDERAB LES Performing Organization Address City/[facility]/ZIP Co de Phone Number [facility] [place] [address] * Folate, serum (09/12/2019 10:10 AM EDT) [facility] Folate 9.3 4.8 - 24.2 ng/mL [facility] Blood specimen (specimen) 09/12/2019 10:10 AM EDT 09/12/2019 10:22 AM EDT Narrative Resulting Agency Comment Spec In Lab Tal Eagle MD CHEMISTRY ORDERAB LES Performing Organization Address [facility] Co de Phone Number [facility] [place] [address] * Ferritin (09/12/2019 10:10 AM EDT) [facility] Ferritin 246 30 - 400 ng/mL [facility] Comment: Pediatric reference ranges not verified at [facility], interpret with caution. Reference ranges for females greater than 50 years of age approach values for men, i.e., 30-400 ng/mL. Blood specimen (specimen) 09/12/2019 10:10 AM EDT 09/12/2019 10:22 AM EDT Narrative Resulting Agency Comment Spec In Lab Tal Eagle MD CHEMISTRY ORDERAB LES Performing Organization Address [facility] Co de Phone Number [facility] [place] [address] * (ABNORMAL) CMP w/fasting Glucose (09/12/2019 10:10 AM EDT) [facility] Glucose Fasting 153(H) 65 - 99 mg/dL [facility] Comment: ?Fasting* Glucose Interpretive Criteria [...] of Diabetes Mellitus, Position Statement from the [place] [employer]. ??Diabetes Care, Volume 33, Supplement 1, Jul 2009 Blood Urea Nitrogen 16 10 - 20 mg/dL [facility] Creatinine 1.43 0.80 - 1.50 mg/dL [facility] Sodium 142 135 - 145 mmol/L [facility] Potassium 3.7 3.5 - 5.0 mmol/L [facility] Comment: Please note: ??Patients with WBC >100,000 may have falsely elevated Potassium levels. ??For accurate Potassium quantification in these patients send serum separator tube (gold top) for subsequent determinations. ??Contact the Clinical Chemistry Laboratory if there are any questions. Chloride 103 98 - 107 mmol/L [facility] Carbon Dioxide 28 22 - 31 mmol/L [facility] Anion Gap 11 5 - 15 mmol/L [facility] Calcium 9.7 8.5 - 10.5 mg/dL [facility] Protein, Total 7.1 6.1 - 8.0 gm/dL [facility] Albumin 4.1 3.2 - 5.2 gm/dL [facility] Aspartate Aminotransferase 18 0 - 39 unit/L [facility] Alanine Aminotransferase 16 0 - 55 unit/L [facility] Alkaline Phosphatase 69 40 - 130 unit/L [facility] Bilirubin, Total 2.5(H) 0.2 - 1.3 mg/dL [facility] Est Glomerular Filtration Rate 49(L) >=60 mL/min/1. 73 m?? [facility] Comment: The eGFR was calculated using the CKD-EPI equation. As with all creatinine based estimates of kidney function, eGFR values calculated with the CKD-EPI equation are not accurate in patients with acute kidney failure, extremes of body mass or the acutely ill. [email or web address] eGFR 57(L) >=60 mL/min/1. 73 m?? [facility] Comment: The eGFR was calculated using the CKD-EPI equation. As with all creatinine based estimates of kidney function, eGFR values calculated with the CKD-EPI equation are not accurate in patients with acute kidney failure, extremes of body mass or the acutely ill. [email or web address] Blood specimen (specimen) 09/12/2019 10:10 AM EDT 09/12/2019 10:22 AM EDT Narrative Resulting Agency Comment Spec In Lab Tal Eagle MD CHEMISTRY ORDERAB LES Performing Organization Address City/[facility]/ZIP Co de Phone Number [facility] [place] [address] * Amylase (09/12/2019 10:10 AM EDT) Amylase 46 28 - 100 unit/L [facility] Blood specimen (specimen) 09/12/2019 10:10 AM EDT 09/12/2019 10:22 AM EDT Narrative Resulting Agency Comment Spec In Lab Tal Eagle MD CHEMISTRY ORDERAB LES Performing Organization Address City/[facility] Co de Phone Number [facility] [place] [address] documented in this encounter Visit Diagnoses Diagnosis H/O kidney transplant Kidney replaced by transplant BK viremia Viremia, unspecified documented in this encounter Care Teams Sales Attendant Building Materials Relationship Specialty Start Date End Date Urbano Denis DO [address] [place] [address] PCP - General 09/03/12 03/17/22 Ruchi Valles RN Nurse Clinic Transplant Surgery 07/30/15 documented as of this encounter
--- OUTSIDE RECORDS SUMMARY | 2024-02-14 11:21 | XMS_ITS | Encounter Summary ---
Author Organization [facility] [place] [address] Care Team Providers Care Insulation Cupola Charger Name Role Phone Adeel Urbano KIRBY Primary Care Provider [phone] Encounter Details Date Type Department Care Team (Late st Contact Info) Description 12/21/2019 External Results [place] [phone] Tal Eagle MD [facility] [place] [address] Social History Tobacco Use Types Packs/Day Years [...] AM EDT Hospital Encounter [place] [phone] Arrived documented as of this encounter Goals Goal Patient Goal Type Associated Problems Recent Progress Patient-Stated? Author [facility] Medication Compliance and Understanding Patient Facing Action Plan On track( 017 10:41 AM EDT) No Selena Cisneros, [facility] Note: Patient Goal: Clear hepatitis C Timeframe to meet goal: within 12 weeks of therapy documented as of this encounter Procedures Procedure Name Priority Date/Time Associated Diagnosis Comments LAB SCAN Routine 12/15/2019 documented in this encounter Results * Scan Doc: Lab (12/15/2019) Tal Eagle MD MEDIA MGR SCAN EX T ORDR/RSLT documented in this encounter Visit Diagnoses Not on filedocumented in this encounter Care Teams Insulation Cupola Charger Relationship Specialty Start Date End Date Urbano Denis DO [address] [place] [address] [address] [place] [address] PCP - General 09/03/12 03/17/22 Ruchi Valles RN Nurse Clinic Transplant Surgery 07/30/15 documented as of this encounter
--- OUTSIDE RECORDS SUMMARY | 2024-02-14 11:22 | XMS_ITS | Encounter Summary ---
[place] [address] Care Team Providers Care Fire Engineer Name Role Phone AdeelUrbano boland Primary Care Provider [phone] Reason for Visit * Reason Onset Date Comments Other 02/10/2019 Encounter Details Date Type Department Care Team (Late st Contact Info) Description 02/10/2019 [place] [address] Zehra Craig Other Social History Tobacco Use Types Packs/Day [...] AM EDT Hospital Encounter [place] [phone] Arrived documented as of this encounter Goals Goal Patient Goal Type Associated Problems Recent Progress Patient-Stated? Author [facility] Medication Compliance and Understanding Patient Facing Action Plan On track( 017 10:41 AM EDT) No Selena Cisneros [facility] Note: Patient Goal: Clear hepatitis C Timeframe to meet goal: within 12 weeks of therapy documented as of this encounter Visit Diagnoses Not on filedocumented in this encounter Care Teams Fire Engineer Relationship Specialty Start Date End Date Urbano Denis DO [address] [place] [address] PCP - General 09/03/12 03/17/22 Ruchi Valles RN Nurse Clinic Transplant Surgery 07/30/15 documented as of this encounter
--- OUTSIDE RECORDS SUMMARY | 2024-02-14 11:22 | XMS_ITS | Encounter Summary ---
[facility] [place] [place] [address] Care Team Providers Care Customer Contact Representative Name Role Phone Urbano Denis DO Primary Care Provider Reason for Referral * Consultation (Routine) - Closed Specialty Diagnoses / Procedures Referred By Contac t Referred To Contact Infectious Diseases Diagnoses Bacteremia due to Enterococcus Pyelonephritis, acute Enterococcus faecalis infection Therese Lam MD [facility] [place] [address] Therese Lam MD [facility] [place] [address] Referral ID Status Reason Start Date Expiration Date V isits Requested Visits Authorized [id number] Closed Assume Subset of Care 02/09/2019 02/09/2020 1 1 Reason for Visit * Auth/Cert Specialty Diagnoses / Procedures Referred By Contac t Referred To Contact Diagnoses Fever PNEUMONIA Referral ID Status Reason Start Date Expiration Date Visits Re quested Visits Authorized [id number] 1 1 Encounter Details Date Type Department Care Team (Latest Contact Info) Description 02/06/2019 10:20 PM EDT - 02/11/2019 1:48 PM EDT Hospital Encounter [address] [id number] Alessandro Limon DO [facility] [place] [address] [place] [address] [place] [address] Dyspnea, unspecified type; Bacteremia due to Enterococcus; Atrial fibrillation with RVR - had flutter initially, then fib; Pyelonephritis, acute; Enterococcus faecalis infection Discharge Disposition: Rehab Center in a Facility Social History Tobacco Use Types Packs/Day Years [...] Sign Reading Time Taken Comments Blood Pressure 161/59 02/11/2019 5:46 AM EDT Pulse 82 02/11/2019 5:46 AM EDT Temperature 36.4 ??C (97.5 ??F) 02/11/2019 5:46 AM ED T Respiratory Rate 18 02/11/2019 5:46 AM EDT Oxygen Saturation 98% 02/11/2019 5:46 AM EDT Inhaled Oxygen Concentration - - Weight 101.4 kg (223 lb 9.6 oz) 019 10:29 PM EDT Height 180.3 cm (5' 11) 02/06/2019 10: 29 PM EDT Body Mass Index 31.19 02/06/2019 10:29 PM EDT documented in this encounter Discharge Summaries * Danny Hicks MD - 02/11/2019 11:03 AM EDT Discharge Summary Patient Name: Ethel Bolden Patient Age: 68 y.o. Language: Jordanian Race: White Ethnicity: Not nor Admit date: 02/06/2019 Discharge date and time: 02/11/2019 Attending Physician: Danny Hicks MD Discharge Physician: Danny Hicks MD Follow-up Recommendations for Providers: - Patient is being discharged on a 14 days course of IV ampicillin (end date of 02/21). Mr. Cole continue to receive these antibiotics at rehab via peripheral IV. However, if he is dischargedfrom rehab and still requires IV abx, he will require either a PICC line or midline to continue to receive these antibiotics in the outpatient setting. Mr. Bolden's transplant physician, Dr. Eagle, strongly prefers a midline to maintain his vascular access in the case of future need for dialysis. - Follow up on patient's diarrhea. If not improving, can consider adding antimotility agents. - We are discharging Mr. Bolden on 20mg PO Lasix every morning. During his hospital stay, he responded to 40mg, but we are trialing him on this lower dose. He benefited from daily diuresis throughout his hospital stay, but it is unclear if he requires this in an outpatient setting. Please monitorand make adjustments as needed. - Mr. Bolden should follow up with his transplant doctor, Dr. Eagle, within 2 weeks of discharge from rehab. - Mr. Bolden is being started on aspirin 81mg for his NSTEMI; per cardiology, this should be continued for 1 month (until March 04). If he has any signs of bleeding, this can be discontinued sooner, per their recommendations. He should follow-up with cardiology in approximately 2 months. -Pt had episodes of asymptomatic bradycardia in the 40s during hospitalization, but was mostly in the 70-80s, thus his metop was restarted given consideration of recent NSTEMI, but if he becomes symptomatic would consider holding Inpatient Provider Contact Information: For questions regarding this document or issues relating to this hospitalization on the Medical Service, please contact your inpatient physician through the [facility] Data Management Associate . Issues afterhours and on weekends will be handled by the Hospitalist staff on-call. Discharge Diagnoses (Hospital Problems) and Secondary Diagnoses (Chronic Problems): Active Hospital Problems Diagnosis ??? Fever Resolved Hospital Problems No resolved problems to display. Active Non-Hospital Problems Diagnosis ??? Atrial fibrillation with RVR - had [...] insulin ??? Weight increase ??? Sepsis ??? Kidney replaced by transplant ??? Encounter for long-term (current) use of other medications ??? Aftercare following organ transplant ??? Dehydration ??? Ureteral stricture ??? Bacteremia due to coagulase-negative Staphylococcus ??? UTI (urinary tract infection) ??? RAY (acute kidney injury) ??? Kidney transplant infection ??? HCV (hepatitis C virus) ??? Hepatitis C virus infection ??? Essential hypertension ??? CGN (chronic glomerulonephritis) ??? DM type 2 (diabetes mellitus, type 2) ??? Hypertension ??? DJD (degenerative joint disease) ??? Hematuria History of Presentation: Ethel Bolden is a 68 y.o. 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 ?? During this past hospitalization, patient was noted to be in a flutter RVR, and was rate controlledwith metoprolol, also with evidence of a NSTEMI, underwent cardiac catheterization with stent placement. Patient was initiated on eliquis. Also with acute hypoxic respiratory failure in the setting of volume overload, which was managed with diuresis patient was weaned off oxygen, by discharge . Course also complicated by RAY which was felt to be in the setting of decreased perfusion vs diuresis. ?? Since discharge patient reports shortness of breath. En route given ativan 1 mg for anxiety, and small bolus d/t hypotension. Of note on outside hospital records with chest x-ray showing evidence of a infiltrate, patient with reported fever of 103. ?? On arrival with 100.6, blood pressure soft also with bradycardia patient, notably hypoxic % Ventimask, chest x-ray with evidence of pulmonary edema, Given 40 of IV Lasix with good urine output. Hospital Course: #Sepsis #Enterococcus bacteremia #Pyelonephritis Mr. Bolden presented [...] due to his bacteremia and antibiotic use. #acute hypoxic resp failure #acute cardiogenic pulm [...] on 20mg Lasix QAM. ?? #DMII Mr. Concepcions diabetes was managed on sliding scale insulin throughout his hospitalization. His home glipizide was held in the setting of his sepsis, and restarted on discharge. #Hypothyroidism His hypothyroidism was managed on his home dose of Synthroid throughout his hospitalization withoutissues.?? #aflutter #NSTEMI Repeat TTE showed improvement in EF, from 30% to 40-50%.Throughout his stay, he was managed on his apixaban, aspirin, clopidogrel, and atorvastatin without issues. His metoprolol was held in the setting of sepsis. Vital Signs at Discharge: BP: 161/59, Heart Rate: 82, Temp: 36.4 ??C (97.5 ??F), Resp: 18, BMI (Calculated): 31.18 Height: 180.3 cm (5' 11) (02/06/192228) Weight: 101.4 kg (223 lb 9.6 oz) (02/06/192228) Functional and Cognitive Status: No functional or cognitive issues identified Important Studies and Lab Data: Labs: Recent Labs 02/11/19 0543 02/10/19 0546 02/09/19 0355 WBC 9.2 9.0 9.1 HGB 13.4* 13.5* 13.3* HCT 39.9* 39.6* 38.3* PLATELET 281 244 220 Recent Labs 02/11/19 0543 02/10/19 0546 02/09/19 0355 NA 138 133* 133* K 3.8 3.8 3.6 CL 99 96* 96* CO2 28 28 28 BUN 17 18 24* CREATININE 1.20 1.31 1.58* Recent Labs 02/06/19 2310 AST 17 ALT 15 ALKPHOS 47 BILITOT 2.2* BILIDIR 0.3 Recent Labs 02/11/19 0543 02/10/19 0546 02/09/19 0355 02/07/19 0150 02/06/19 2310 02/05/19 0747 CALCIUM 8.6 8.5 8.5 < > 9.0 8.3* -- MAGNESIUM -- -- -- -- 0.59* 0.52* 0.67* PHOS -- 2.1* -- -- -- -- -- < > = values in this interval not displayed. Recent Labs 02/07/19 0150 02/06/19 2310 TROPONINT 0.05* 0.05* Recent Labs 02/06/19 2310 PT 23.5* INR 2.0 Studies: Blood culture [facility] 02/06 - no growth 4 days Urine culture: 1000 - 9000 CFU enterococcus faecalis, pansensitive ?? Relevant Imaging and Procedures: ?? Echocardiogram Transthoracic 02/07/2019 1. Limited TTE today 2. There is normal global left ventricular systolic function. 3. The quantitative left ventricular ejection fraction by biplane Elizabeth's method is 56%. ??The visually estimated EF 40-50% ??There are left ventricular segmental wall motion abnormalities present, as shown in the diagram below. 4. Right ventricular chamber size, wall thickness, and systolic function are within normal limits. 5. Borderline concentric left ventricular hypertrophy is observed. There is no evidence of LVOT obstruction. ?There is mild dilatation of the aortic root. [...] mild to moderate (1-2+/4+) tricuspid regurgitation present. ??No obvious vegetations are seen. ?? 8. A trivial pericardial effusion is visualized. The estimated pulmonary artery systolic pressure is 29 mmHg.plus RAP. When compared to the prior 02/01/19 study, the current study has limited views for a comprehensive wall motion analysis, but overall LV function and segmental wall motion abnomalities have improved. ?? CT Abdomen and Pelvis wo Contrast 02/07/2019 1. ??Slightly edematous transplant kidney within the left lower quadrant with increased perinephric stranding. Correlate with urinalysis for signs of infection. 2. ??New small bilateral pleural effusions. 3. ??Cholelithiasis without cholecystitis. ?? US Renal Transplant 02/07/2019 The LEFT renal transplant is slightly enlarged compared to ??prior study. Renal vein and artery are patent with normal ??waveforms. The ??resistive indices are slightly increased at 0.62-0.82 relative to the ??prior ??study. No hydronephrosis or perinephric collections ?? CXR 02/06/2019 Patchy opacities are seen in the bilateral lungs. The heart is enlarged. Atelectasis is present at the lower lobes bilaterally. No pneumothorax. The osseous structures are unchanged. Again seen is an 11 mm hypodensity in the right proximal humerus which has a benign appearance. Pending Studies and Lab Data: none Discharge Conditions/Prognosis: Upon discharge the pt is hemodynamically stable, not requiring supplemental oxygen, afebrile and pain free Discharge to: acute rehab Updated Allergies/ADRs: No Known Allergies Immunizations Given this Hospitalization: Immunization History Administered Date(s) Administered ??? Hepatitis B Vaccine, unspecified formulation 04/16/2015, 05/14/2015, 06/20/2015 ??? Influenza PF, Split 06/04/2012, 05/26/2013, 04/07/2015, 08/03/2017 ??? Influenza PF, Split (High Dose) 04/23/2016 ??? Influenza Vaccine PF, Quadrivalent (6-35 Mos) 04/04/2015 ??? Pneumococcal Polyvalent 23 06/20/2014, 04/11/2015 ??? Td, adult 07/06/2000, 05/20/2011 ??? Zoster Vaccine, Live 08/30/2015 Discharge Medications: Your Medications New Medications Dose Details ampicillin 1 gram Solr Commonly known as: OMNIPEN Inject 2,000 mg into the vein every 6 hours. 2 g Quantity: 2000 mg Refills: 0 furosemide 20 mg Tab Commonly known as: LASIX Take 1 tablet by mouth daily. 20 mg Refills: 0 Continued medications, unchanged Dose Details acetaminophen 500 mg Tab Commonly known as: TYLENOL Take 1,000 mg by mouth every 8 hours as needed for Pain. 1000 mg Refills: 0 apixaban 5 mg Tab Commonly known as: ELIQUIS Take 1 tablet by mouth 2 times daily for 30 days. 5 mg Quantity: 60 tablet Refills: 0 ascorbic acid 500 mg Tab Commonly known as: Vitamin C Take 1 tablet by mouth 3 times daily. 500 mg Quantity: 30 tablet Refills: 3 aspirin 81 mg Chew Take 81 mg by mouth daily. 81 mg Quantity: 30 tablet Refills: 3 atorvastatin 40 mg Tab Commonly known as: LIPITOR Take 1 tablet by mouth every evening. 40 mg Quantity: 90 tablet Refills: 3 calciTRIol 0.5 mcg Cap Commonly known as: ROCALTROL TAKE ONE CAPSULE BY MOUTH EVERY DAY Quantity: 90 capsule Refills: 3 clopidogrel 75 mg Tab Commonly known as: PLAVIX Take 75 mg by mouth daily. 75 mg Refills: 0 glipiZIDE 5 mg Tab Commonly known as: GLUCOTROL Take 0.5 tablets by mouth 2 times daily (before meals). 2.5 mg Quantity: 30 tablet Refills: 12 levothyroxine 137 mcg Tab Commonly known as: SYNTHROID Take 137 mcg by mouth daily. 137 mcg Refills: 0 Magnesium Gluconate 27 mg magnesium (500 mg) Tab TAKE TWO TABLETS BY MOUTH TWICE A DAY Quantity: 360 tablet Refills: 3 metoprolol succinate 25 mg Tablet sr Commonly known as: TOPROL-XL Take 1 tablet by mouth daily. 25 mg Quantity: 30 tablet Refills: 12 mycophenolate 250 mg Cap Commonly known as: CELLCEPT Take 1 capsule by mouth 2 times daily. Kidney Transplant ICD Code Z94.0 250 mg Quantity: 60 capsule Refills: 8 nitroGLYcerin 0.4 mg Subl Commonly known as: NITROSTAT Place 1 tablet under the tongue every 5 minutes as needed for Chest pain. 0.4 mg Quantity: 90 tablet Refills: 12 polyethylene glycol 17 gram Pwpk Commonly known as: MIRALAX Take 17 g by mouth 2 times daily. Take to maintain normal bowel pattern while taking narcotic pain medication. 17 g Refills: 0 potassium phosphate (monobasic) 500 mg Tbso Commonly known as: K-PHOS ORIGINAL Take 2 tablets by mouth 2 times daily. DISSOLVE IN WATER PRIOR TO ADMINISTRATION 1000 mg Quantity: 540 tablet Refills: 3 tacrolimus 1 mg Cap Commonly known as: PROGRAF TAKE TWO CAPSULES BY MOUTH EVERY MORNING, TAKE ONE CAPSULE BY MOUTH NIGHTLY . Quantity: 90 capsule Refills: 8 tamsulosin 0.4 mg Cap Commonly known as: FLOMAX Take 0.4 mg by mouth daily. 0.4 mg Refills: 0 Smoking Status at Discharge: Social History Tobacco Use Smoking Status Current Some Day Smoker ??? Types: Cigars ??? Last attempt to quit: 01/02/2015 ??? Years since quittin.1 Smokeless Tobacco Never Used Tobacco Comment cigars, one weekly Instructions Given to Patient at Discharge: Patient Instructions You were hospitalized for an infection in your blood stream: bacteremia. The bacteria that causedyour illness is called enterococcus; the bacteria originated in your urine, went to your kidneys,and some ended up in your blood stream. You were started on antibiotics for this infection, and arebeing charged on a 14-day course of ampicillin. You will continue to receive this antibiotic through your IV line while you are at rehab. You also had some difficulty breathing while here at the hospital. This was felt to be due to fluidoverload, as you received IV fluids in the ambulance and had a recent heart attack. The term for this is pulmonary edema. This was managed with a drug called furosemide or Lasix. This medication causes you to urinate to get the fluid out of your lungs. We are starting you on a daily dose of Lasix to help prevent fluid from building up in your lungs again. You should take 20mg of Lasix each morning. You should follow up with your primary care provider after you are discharged from rehab tosee if you should continue this medication or change the dosing. You are being discharged to rehab to help you build strength after your recent hospitalization. Call your doctor or seek medical attention if you develop the following - chest pain, shortness of breath, feeling dizzy upon standing, passing out, diarrhea, constipation lasting longer than 2 days,fevers (temperature over 100.3), chills, abdominal pain, vomiting, difficulty or discomfort when urinating, bloody or black bowel movements, or any other acute or concerning symptom. Follow-up: No future appointments. The rehab facility will help to schedule follow-up appointments once you leave rehab. You should see Dr. Eagle within 2 weeks of discharge, and cardiology in 2 months. Your Inpatient Doctor: Danny Hicks MD Your Primary Care Provider: Urbano Denis DO [phone] For questions regarding this document or issues relating to this hospitalization on the Medical Service, please contact your inpatient physician through the [facility] Data Management Associate . Issues afterhours and on weekends will be handled by the Hospitalist staff on-call. General Instructions None Future Appointments and Orders Future Orders Complete By Expires OPAT: Order / Recommendation for Post Discharge IV Antibiotic Management [AWQ700 CPT(R)] As directed Process Instructions: If no progress note charted, please enter Clinical details in comments. Scheduling Instructions: Comments: Please Fax all results to: OPAT Program Infectious Disease Section [facility] [place], [place] [address] FAX: Line care instructions per [facility] OPAT Program protocol. After hours, please contact the Infectious Disease Physician automation operator at . If this order was signed greater than 72 hours prior to [facility] discharge, please call to confirm the accuracy of this order. Questions: ID Diagnosis: Pyelonephritis with transient Bacteremia Microorganisms being treated: Enterococcus faecalis Antibiotic Allergies: No Known Antibiotic Allergies Antibiotic (one line for each ABx): Ampicillin 2 g IV q 6 hr Start date: 02/07/2019 Anticipated stop date: 02/21/2019 Labs: Every Thursday: CBC, CMP Comment - CBC w diff Last documented weight (kg): 101.4 kg (223 lb 9.6 oz) Last documented height (cm): 180.3 cm (5' 11) Responsible Attending: Other Other Provider: Therese Lam MD Discharge References/Attachments None documented in this encounter Discharge Instructions * Discharge Instructions* Mahsa Celestin RN - 02/11/2019 11:17 AM EDT ?? Office of Care Management /[facility]) Facility Discharge on IV AntibioticTherapy ?? Patient will require continued IV antibiotic therapy after discharge from the hospital per Dr. Gandhi is medically ready for discharge. ?? Patient has accepted a bed offer from: [facility] Acute Rehabilitation and Sub-Acute (Swing) Rehab Levels of Care [address] [place] [address] IV access: Peripheral IV Line - Single Lumen, cephalic vein (lateral side of arm), right 20 gauge; 1 in length Placed 02/07/19 * Patient Instructions* Destinee Ochoa - 02/11/2019 10:07 AM EDT You were hospitalized for an infection in your blood stream: bacteremia. The bacteria that causedyour illness is called enterococcus; the bacteria originated in your urine, went to your kidneys,and some ended up in your blood stream. You were started on antibiotics for this infection, and arebeing charged on a 14-day course of ampicillin. You will continue to receive this antibiotic through your IV line while you are at rehab. You also had some difficulty breathing while here at the hospital. This was felt to be due to fluidoverload, as you received IV fluids in the ambulance and had a recent heart attack. The term for this is pulmonary edema. This was managed with a drug called furosemide or Lasix. This medication causes you to urinate to get the fluid out of your lungs. We are starting you on a daily dose of Lasix to help prevent fluid from building up in your lungs again. You should take 20mg of Lasix each morning. You should follow up with your primary care provider after you are discharged from rehab tosee if you should continue this medication or change the dosing. You are being discharged to rehab to help you build strength after your recent hospitalization. Call your doctor or seek medical attention if you develop the following - chest pain, shortness of breath, feeling dizzy upon standing, passing out, diarrhea, constipation lasting longer than 2 days,fevers (temperature over 100.3), chills, abdominal pain, vomiting, difficulty or discomfort when urinating, bloody or black bowel movements, or any other acute or concerning symptom. Follow-up: No future appointments. The rehab facility will help to schedule follow-up appointments once you leave rehab. You should see Dr. Eagle within 2 weeks of discharge, and cardiology in 2 months. Your Inpatient Doctor: Danny Hicks MD Your Primary Care Provider: Urbano Denis DO [phone] For questions regarding this document or issues relating to this hospitalization on the Medical Service, please contact your inpatient physician through the [facility] Data Management Associate . Issues afterhours and on weekends will be handled by the Hospitalist staff on-call. documented in this encounter Medications at Time of Discharge Medication Sig Dispensed Refills Start Date End Date nitroGLYcerin (NITROSTAT) 0.4 mg Tablet, Sublingual Place [...] Tablet Take 137 mcg by mouth daily. ampicillin (OMNIPEN) 1 gram Recon Soln Inject 2,000 mg into the vein every 6 hours. 2000 mg 02/11/2019 03/11/2019 furosemide (LASIX) 20 mg Tablet Take 1 tablet by mouth daily. 02/11/2019 09/12/2019 apixaban (ELIQUIS) 5 mg Tablet Take 1 tablet by mouth 2 times daily for 30 days. 60 tablet 02/05/2019 04/06/2019 aspirin 81 mg Tablet, Chewable Take 81 mg by mouth daily. 30 tablet 3 02/06/2019 09/12/2019 atorvastatin (LIPITOR) 40 mg Tablet Take 1 tablet by mouth every evening. 90 tablet 3 02/05/2019 02/07/2020 metoprolol succinate (TOPROL-XL) 25 mg Tablet Sustained Release 24 hr Take 1 tablet by mouth daily. 30 tablet 12 02/05/2019 04/06/2019 glipiZIDE (GLUCOTROL) 5 mg Tablet Take 0.5 tablets by mouth 2 times daily (before meals). 30 tablet 12 02/05/2019 03/31/2019 mycophenolate (CELLCEPT) 250 mg Capsule Take 1 capsule by mouth 2 times daily. Kidney Transplant ICD Code Z94.0 60 capsule 8 01/18/2019 07/12/2019 tacrolimus (PROGRAF) 1 mg Capsule TAKE TWO CAPSULES BY MOUTH EVERY MORNING, TAKE ONE CAPSULE BY MOUTH NIGHTLY . 90 capsule 8 01/13/2019 07/12/2019 potassium phosphate, monobasic, (K-PHOS ORIGINAL) 500 mg Tablet, Soluble Take 2 tablets by mouth 2 times daily. DISSOLVE IN WATER PRIOR TO ADMINISTRATION 540 tablet 3 11/17/2018 07/12/2019 Magnesium Gluconate 27 mg magnesium (500 mg) Tablet TAKE TWO TABLETS BY MOUTH TWICE A DAY 360 tablet 3 11/17/2018 07/12/2019 calciTRIol (ROCALTROL) 0.5 mcg Capsule TAKE ONE CAPSULE BY MOUTH EVERY DAY 90 capsule 3 07/15/2018 07/12/2019 polyethylene glycol (MIRALAX) 17 gram Powder in Packet Take 17 g by mouth 2 times daily. Take to maintain normal bowel pattern while taking narcotic pain medication. 11/26/2017 05/30/2019 ascorbic acid, vitamin C, (VITAMIN C) 500 mg Tablet Take 1 tablet by mouth 3 times daily. 30 tablet 3 06/25/2016 12/27/2020 clopidogrel (PLAVIX) 75 mg Tablet Take 75 mg by mouth daily. 02/17/2020 documented as of this encounter Progress Notes * Danny Hicks MD - 02/11/2019 1:48 PM EDT Hospital Medicine - Attending Day of Discharge Documentation Discharge diagnosis Active Hospital Problems Diagnosis ??? Fever Resolved Hospital Problems No resolved problems to display. Secondary Issues Active Non-Hospital Problems Diagnosis ??? Atrial fibrillation with RVR - had [...] insulin ??? Weight increase ??? Sepsis ??? Kidney replaced by transplant ??? Encounter for long-term (current) use of other medications ??? Aftercare following organ transplant ??? Dehydration ??? Ureteral stricture ??? Bacteremia due to coagulase-negative Staphylococcus ??? UTI (urinary tract infection) ??? RAY (acute kidney injury) ??? Kidney transplant infection ??? HCV (hepatitis C virus) ??? Hepatitis C virus infection ??? Essential hypertension ??? CGN (chronic glomerulonephritis) ??? DM type 2 (diabetes mellitus, type 2) ??? Hypertension ??? DJD (degenerative joint disease) ??? Hematuria I have personally seen and examined the patient and they are ready for discharge. I spent >30 minutes (Day of Discharge Code 89181) involved in the final examination of the patient, discussion of the hospital stay, instructions for continuing care to all relevant caregivers, and preparation of discharge records, prescriptions and referral forms. Plans ? Discharge to rehab ? Follow-up to be scheduled from rehab ? Please see the Discharge Summary for complete details of any medication changes and additional plans. Danny Hicks MD * Ethel Darling RN - 02/11/2019 1:26 PM EDT Patient Name: Ethel Bolden Patient Age: 68 y.o. Birthdate: 1950 Admit date: 02/06/2019 Attending Physician: Danny Hicks MD Patient discharged to [facility] with in personal vehicle. Patient left with all personal belongings. IV is in place per MD orders. Documentation packet given to to be given to facility. DC Summary faxed to facility. Report called to JADEN Bauman at [facility]. Patient escorted to [facility] by RN. * Mahsa Celestin RN - 02/11/2019 1:11 PM EDT Marisela and Jolly from [facility] confirmed son has contacted them and oxygen needs will be delivered to patient today. Marisela states son was instructed to call [facility] upon discharge to schedule time of delivery. CM will continue to follow and assist with discharge planning and coordination of care as indicated. * Jolly Blum - 02/11/2019 10:23 AM EDT Images from the original note were not included. Office of Care Management/City Comptroller Patient Name: Ethel Bolden : 1950 Patient has been offered a swing bed at [facility], today 02/11 Family will transport patient to facility. Copy of patient demographics [place] Out of Hospital DNR/DNI order, if active MD to MD report to Dr Ramos at [phone] Please call Nursing Report to [phone] , ask for shortage worker. Info to accompany patient: Narcotic Prescriptions Copies of Medication Administration Records and IV sheets for past 10 days. Plan: City Comptroller will be available to the patient and Kiln Door Builder-RN and/or Social Workerfor further assistance. Patient will be discharged to: [facility] [address] [place] [address] Jolly Blum City Comptroller * Mahsa Celestin RN - 02/11/2019 10:17 AM EDT Office of Care Management /Kiln Door Builder(CM) Facility Discharge on IV AntibioticTherapy Patient will require continued IV antibiotic therapy after discharge from the hospital per Dr. Gandhi is medically ready for discharge. Patient has accepted a bed offer from: [facility] Acute Rehabilitation and Sub-Acute (Swing) Rehab Levels of Care [address] [place] [address] IV access: Peripheral IV Line - Single Lumen, cephalic vein (lateral side of arm), right 20 gauge; 1 in length Placed 02/07/19 * Mahsa Celestin RN - 02/11/2019 9:19 AM EDT Spoke with Sonia at [facility], for patient to receive services, VNA would need complete support from with antibiotic therapy. Patient accepted bed at [facility]. VNA and [facility] made aware. Patient will be transported by private vehicle. This plan was formulated with input from patient, family and team. All are in agreement with plan. * Mahsa Celestin RN - 02/10/2019 4:15 PM EDT Based on discussions with the multi-disciplinary healthcare team, the patient would benefit from Acute Rehablevel of care at discharge. Patient initially expressed PT/OT at home, and is now agreeable for referrals to Acute Rehab. ?? I have met with the patient to discuss discharge planning needs. I have reviewed the [facility], Office of Care Management letter from the Animal Technician pertaining to rehab referrals. I have also reviewed a letter describing our affiliations within the [facility]. I have provided information on the right to choose where referrals are placed. ?? I reviewed the different levels of rehab including SNF, swing, acute and LTAC. ?? I provided a list of facilities within the preferred geographic area. ?? I have requested that the patient provide at least three choices for referral. ?? The patient requested referrals to: 1. [facility] [address] [place] [address] ?? [phone] 2. [facility] PHONE: [phone] FAX: [phone] Nurse to Nurse report: [phone] [place] [address] 3. [place] [place] [place] PHONE: [phone] ext [phone] FAX: [phone] ?? Expected date of discharge: 02/11/19 Note routed to City Comptroller who will communicate referrals to facilities and provide any required information. * Venus Chand RD - 02/10/2019 1:36 PM EDT Nutrition Note: Patient is now downgraded to floor medicine. He continues to eat 100%. He is not available in room at time of my visit. Will follow up to offer education as able/appropriate. THANKS REYNALDO Mckeon Page [phone] * Mahsa Celestin RN - 02/10/2019 12:46 PM EDT I reviewed a list of Home Health Agencies/DME vendors with patient which serve the preferred geographic area. Education provided about the right to choose where referrals are placed. Patient requests referral to [facility] [place] PHONE: [phone] FAX: [phone] Expected date of discharge: 02/11/19 Referral routed to the City Comptroller for matching with agency/vendor and to provide any required information. Patient asked for this ad writer to speak with in regards to choosing an infusion vendor, he was not able to recall who he had used in 2016. This ad writer will call . Called patient, she did not provide an infusion company's name and stated she is not taking patient home on IV antibiotics. She asked for a call from Dr. Hicks. made aware. Discussed with patient that did not have the name of infusion vendor. He agreed to a referral to be placed to: [place], [place] or Referral routed to the City Comptroller for matching with vendor and to provide any required information. * Kurt, Danny Acuña MD - 02/10/2019 8:00 AM EDT Hospital Medicine Attending Daily Progress Note Admit Date: 02/06/2019 ( Hospital Day 4 days ) Active Hospital Problems Diagnosis ??? Fever Resolved Hospital Problems No resolved problems to display. ASSESSMENT: 68 yo M with h/o HCV s/p Harvoni, DMII, HTN, and donor kidney transplant 09/16/15 who was recently discharged from the hospital after being admitted with NSTEMI s/p PCI and new aflutter complicated by RVR who represented 24 hours after being discharged with fever, and hypoxic respiratory failure. Regarding the patient's sepsis, his OSH BCx and UCx are growing enteroccocus as is his urine sensitive to amp. Per ID will treat with 14 days of ampicillin. Transplant medicine would like midline as they feel this is less thrombogenic than a PICC. Will discuss with VNA services and come to resolution as pt is going to require OPAT. Renal function continues to improve with diuresis as does his resp status. Will cont with PRN lasixand cont to monitor. Will restart pt's cellcept as he is now recovering from his infection and his BCx are clear. PLAN: #Sepsis: leukocytosis, fever, hypotension #Enterococcus bacteremia #Pyelonephritis - f/u BCx and UCx, with OSH growing enterococcus sensitive to ampicillin - repeat BCx NGTD - will need 14 days of ampicillin (end 02/21), transplant prefers midline over PICC, will discuss with OPAT nursing staff - TTE negative for vegetation - appreciate input from ID - restart cellcept - CD4/8 >2, IgG elevated #RAY in setting of CKD: improving #Transplanted kidney - strict I/O's - monitor renal function and avoid nephrotoxic agents - cont home calcitriol - cont home tacrolimus - restart cellcept - consult transplant medicine #acute hypoxic resp failure #acute cardiogenic pulm edema #acute on chronic systolic heart failure #Question PNA in setting of fever - Oxygenation improving, will give additional lasix and reassess need daily - wean O2 as tolerated #DMII #hypothyroidism - hold home glipizide - insulin sliding scale - cont home levothyroxine #aflutter #NSTEMI - cont apixaban - cont asa and plavix - cont atorvastatin - holding metoprolol in setting of sepsis #FEN/PPx/Disposition - Electrolytes: monitor daily - Nutrition: carb control level 2 with 2g Na restriction - DVT PPx: apixaban - Glycemic control: insulin sliding scale - Disposition: PT/OT eval, possibly acute rehab IPI Certification I certify that I am a D-H credentialed attending provider with admitting privileges and that the patient meets or has met medical necessity to require an inpatient IPI level of care meeting a minimumof two midnights or is on the [facility] inpatient only procedure list (status C) due to: acute respiratory compromise and/or hypoxia requiring assessment every 4 hours and the ability to respond immediately to the patient's need Danny Hicks MD TEAM/PAGER: [phone] Subjective/24hr events: - doing well, working with PT, feeling better, still hypoxic, tolerating diuresis, c diff negative ROS: Patient denies nausea/vomiting, Dysuria. Vitals: Last value Range last 24 hrs Temperature Temp: 36.9 ??C (98.4 ??F) Temp: [36.7 ??C (98.1 ??F)-37.1 ??C (98.8 ??F)] Heart Rate Heart Rate: (!) 48 Heart Rate: [48-86] Blood Pressure BP: 145/70 BP: (121-152)/(52-92) Respiratory Rate Resp: 20 Resp: [18-28] SpO2 SpO2: 97 % SpO2: [92 %-97 %] Intake/Output Summary (Last 24 hours) at 02/10/2019 0800 Last data filed at 02/10/2019 0547 Gross per 24 hour Intake 395 ml Output 1550 ml Net -1155 ml EXAM GEN: NAD HEENT: at/nc, anicteric, perrl, op clear CV: rrr, no m/r/g PULM: scant crackles and wheezes ABD: soft, nt/nd, nabs EXT: trace edema Neuro: Alert/oriented/appropriate Skin: no rash LABS: Reviewed in eDH. Remarkable for the following: Recent Labs 02/10/19 0546 02/09/19 0355 02/08/19 0020 WBC 9.0 9.1 12.2* HGB 13.5* 13.3* 13.2* HCT 39.6* 38.3* 38.0* PLATELET 244 220 200 Recent Labs 02/10/19 0546 02/09/19 0355 02/08/19 0020 NA 133* 133* 132* K 3.8 3.6 3.3* CL 96* 96* 96* CO2 28 28 24 BUN 18 24* 28* CREATININE 1.31 1.58* 1.70* GLUCOSE 136 173 171 CALCIUM 8.5 8.5 8.2* No results for input(s): AST, ALT, ALKPHOS, BILITOT, BILIDIR in the last 72 hours. MICRO: Recent Labs 02/07/19 0055 URINECULTURE 1,000-9,000 cfu/ml Enterococcus faecalis* Recent Labs 02/06/19 2300 02/06/19 2310 02/07/19 1255 BLOODCX No growth at 3 days. No growth at 3 days. No growth at 2 days. STUDIES: TTE 02/07 1. Limited TTE today 2. There is [...] Systolic excursion of the aortic valve cusps isreduced. Non-coronary cusp is not opening. The mitral valve leaflets are mildly thickened. There isposterior mitral annular calcification. There is mild to [...] and segmental wall motion abnomalities have improved. CT a/p 02/07 1. Slightly edematous transplant kidney within the left lower quadrant with increased perinephric stranding. Correlate with urinalysis for signs of infection. 2. New small bilateral pleural effusions. 3. Cholelithiasis without cholecystitis. REnal U/S 02/07 ]The LEFT renal transplant is slightly enlarged compared to prior study. Renal vein and artery are patent with normal waveforms. The resistive indices are slightly increased at 0.62-0.82 relative to the prior study. No hydronephrosis or perinephric collections CXR 02/06 Cardiomegaly with pulmonary edema Medications: Scheduled Meds: ??? ampicillin 2 g Intravenous Q6H ? ? insulin lispro 1-4 Units Subcutaneous 4 Times Daily AC & HS ??? chlorhexidine 15 mL Oral BID ??? sodium chloride 0.9 % (flush) 5 mL Intravenous BID ??? apixaban 5 mg Oral BID ??? aspirin 81 mg Oral Daily ??? atorvastatin 40 mg Oral QPM ??? calciTRIol 0.5 mcg Oral Daily ??? clopidogrel 75 mg Oral Daily ??? levothyroxine 137 mcg Oral Daily ??? tamsulosin 0.4 mg Oral Daily ??? tacrolimus 1 mg Oral Nightly ??? tacrolimus 2 mg Oral Daily Continuous Infusions: PRN Meds:.Glucose 40% oral gel OR dextrose OR glucagon (human recombinant), acetaminophen, sodium chloride 0.9 % (flush), lidocaine * Joanne Dawkins RN - 02/09/2019 7:07 PM EDT Care assumed at 1900. Pt resting in bed at that time. Report given to JADEN Rocha. All questions answered. Pt transferred to room 265. * Therese Lam MD - 02/09/2019 1:59 PM EDT INFECTIOUS DISEASE FOLLOW-UP NOTE Active ID Issue(s): Pyelonephritis secondary to enterococcus Antimicrobial Therapy: IV vancomycin IV Zosyn Intercurrent Events/Subjective Data: Patient continues to clinically improve. He does not report having any fevers, chills, night sweats. He relates that he does not have any abdominal pain or any tenderness where his donor kidney site is. Physical Exam: Last value Range last 24 hrs Temperature Temp: 37.1 ??C (98.8 ??F) Temp: [37.1 ??C (98.8 ??F)-38.4 ??C (101.1 ??F)] Heart Rate Heart Rate: 67 Heart Rate: [63-88] Blood Pressure BP: 103/42 BP: (103-156)/(42-91) Respiratory Rate Resp: 25 Resp: [20-38] SpO2 SpO2: 96 % SpO2: [94 %-97 %] General: Alert and oriented, pleasant, on nasal cannula Head: NC AT EENT: EOMI, no nasal secretions Neck: no LAD Cardiovascular: RRR no obvious MRG Pulmonary:??nonlabored respirations abdomen: BS + ND NT no rebound tenderness no guarding Ext: UE and LE WWP.?Right upper extremity fistula. distal pulses palpable throughout Skin: no rashes Neuro: alert and oriented to person place time and situation. No facial droop. No dysarthia Psych: normal affect Laboratory: Lab Results Component Value Date WBC 9.1 02/09/2019 HGB 13.3 (L) 02/09/2019 HCT 38.3 (L) 02/09/2019 PLATELET 220 02/09/2019 Lab Results Component Value Date CREATININE 1.58 (H) 02/09/2019 Lab Results Component Value Date ALT 15 02/06/2019 AST 17 02/06/2019 ALKPHOS 47 02/06/2019 BILITOT 2.2 (H) 02/06/2019 Sed Rate (mm/hr) Date Value 02/01/2018 25 (H) CRP (mg/L) Date Value 02/01/2018 8.5 (H) Micro: Blood Culture:?02/06??outside institution positive for enterococcus (sensitivities in scan docs) ?02/07??no growth to date Urine Culture: ?: 1,000-9,000 cfu/ml Enterococcus species ?? Abx while inpatient(Abx-Dates):?? -??Ceftazidime 2 g??02/07 -??Cefepime 1 g??02/07 -??Piperacillin-??tazobactam??02/07??present - Vancomycin 02/07 present ?? Scheduled Meds: ??? ampicillin 2 g Intravenous Q6H ? ? insulin lispro 1-4 Units Subcutaneous 4 Times Daily AC & HS ??? chlorhexidine 15 mL Oral BID ??? sodium chloride 0.9 % (flush) 5 mL Intravenous BID ??? apixaban 5 mg Oral BID ??? aspirin 81 mg Oral Daily ??? atorvastatin 40 mg Oral QPM ??? calciTRIol 0.5 mcg Oral Daily ??? clopidogrel 75 mg Oral Daily ??? levothyroxine 137 mcg Oral Daily ??? tamsulosin 0.4 mg Oral Daily ??? tacrolimus 1 mg Oral Nightly ??? tacrolimus 2 mg Oral Daily Continuous Infusions: PRN Meds:.Glucose 40% oral gel OR dextrose OR glucagon (human recombinant), acetaminophen, sodium chloride 0.9 % (flush), lidocaine Radiology/Studies/Procedures: No new imaging Impression: Ethel P Tubiello is a 68 y.o.male a history of DM type II, HTN, HCV s/p rx with [facility], donor kidney transplant in 09/2015 on tacrolimus, mycophenolate admitted to the hospital due to enterococcus pyelonephritis with associated bacteremia considering his blood cultures from the 4th are negative. The patient has shown dramatic clinical improvement compared with when he was first admitted he has remained afebrile for the last 24 hours and does not have a leukocytosis. Since the pathogenis ampicillin sensitive we can consider switching him to ampicillin 2 g every 6 hours based on his creatinine clearance. He is to complete a total of 14 days of therapy leading his last day to be February 21, 2019. He can potentially receive this medication through midline. We will have to discuss with renal regarding the possibility of placement of this access for his therapy. We will set him up with our OPAT team. He will not require outpatient ID follow-up Recommendations: [] Continue with IV ampicillin 2 g every 6 hours to complete a total of 14 days of therapy ending on February 21, 2019 [] During this time he will need weekly CBC, weekly CMP Patient discussed with ID attending Dr. Lam. Recommendations discussed with primary treating team. The ID service will sign off if there are any questions please do not hesitate to contact us. Leelee Church MD 02/09/2019 2:00 PM [id number] ID ATTENDING I have seen the patient, reviewed the chart as well as the documentation as written by Dr. Church. The assessment and plan were formulated in discussion with me and I agree with them as documented. Therese Lam MD Infectious Diseases * Leelee Church MD - 02/09/2019 1:56 PM EDT ID OPAT INTAKE Diagnosis: Pyelonephritis with transient bacteremia Organism: Enteroccoccus Antibiotic(s): Ampicillin 2gm Q6H Start date: 02/07/2019 Anticipated end date: 02/21/2019 Desired labs: CBC, CMP Desired timing of first appointment: none required Other specialty appointments to coordinate with? [ ] yes: which specialty? [ ] no Imaging needed? [ ] yes: if so, what study? [ ] no Timing of imaging desired? [ ] same day as ID appointment [ ] same day as other appointment? What specialty? Weekly infusion at [facility]? [ ] yes: if so, please indicate day of week: [ ] no * Danny Hicks MD - 02/09/2019 8:29 AM EDT Hospital Medicine Attending Daily Progress Note Admit Date: 02/06/2019 ( Hospital Day 3 days ) Active Hospital Problems Diagnosis ??? Fever Resolved Hospital Problems No resolved problems to display. ASSESSMENT: 68 yo M with h/o HCV s/p Harvoni, DMII, HTN, and donor kidney transplant 09/16/15 who was recently discharged from the hospital after being admitted with NSTEMI s/p PCI and new aflutter complicated by RVR who represented 24 hours after being discharged with fever, and hypoxic respiratory failure. Regarding the patient's sepsis, his OSH BCx and UCx are growing enteroccocus as is his urine sensitive to amp. Per ID will treat with 14 days of ampicillin. Will discuss with transplant medicine the optimal way for him to receive IV abx given h/o fistula and ESRD with transplanted kidney as midline/PICC are both relatively contraindicated but an inpatient stay of 14 days also seems not ideal. Renal function continues to improve with diuresis as does his resp status. Will cont with PRN lasixand cont to monitor. Pt has developed new diarrhea since being admitted with C diff testing pending. WIll cont to hold cellcept at this time after discussing with Dr. Eagle. Patient's was updated at bedside as pt was working with PT/OT. PLAN: #Sepsis: leukocytosis, fever, hypotension #Enterococcus bacteremia #Pyelonephritis - f/u BCx and UCx, with OSH growing enterococcus sensitive to ampicillin - repeat BCx NGTD - will need 14 days of ampicillin, and will discuss with transplant about optimal path for administration - TTE negative for vegetation - appreciate input from ID - hold cellcept while actively infected - CD4/8 >2, IgG elevated #RAY in setting of CKD: improving #Transplanted kidney - strict I/O's - monitor renal function and avoid nephrotoxic agents - cont home calcitriol - cont home tacrolimus - hold cellcept - consult transplant medicine #acute hypoxic resp failure #acute cardiogenic pulm edema #acute on chronic systolic heart failure #Question PNA in setting of fever - Oxygenation improving, will give additional lasix and reassess need daily - wean O2 as tolerated #DMII #hypothyroidism - hold home glipizide - insulin sliding scale - cont home levothyroxine #aflutter #NSTEMI - cont apixaban - cont asa and plavix - cont atorvastatin - holding metoprolol in setting of sepsis #FEN/PPx/Disposition - Electrolytes: monitor daily - Nutrition: carb control level 2 with 2g Na restriction - DVT PPx: apixaban - Glycemic control: insulin sliding scale - Disposition: PT/OT eval, transfer from [facility] today IPI Certification I certify that I am a D-H credentialed attending provider with admitting privileges and that the patient meets or has met medical necessity to require an inpatient IPI level of care meeting a minimumof two midnights or is on the [facility] inpatient only procedure list (status C) due to: acute respiratory compromise and/or hypoxia requiring assessment every 4 hours and the ability to respond immediately to the patient's need Danny Hicks MD TEAM/PAGER: [phone] Subjective/24hr events: - Abx narrowed to zosyn, febrile yest afternoon, O2 requirement decreasing with diuresis, diarrhea started, testing for c diff ROS: Patient denies nausea/vomiting, Dysuria. Vitals: Last value Range last 24 hrs Temperature Temp: 37.9 ??C (100.2 ??F) Temp: [36.8 ??C (98.2 ??F)-38.4 ??C (101.1 ??F)] Heart Rate Heart Rate: 84 Heart Rate: [58-88] Blood Pressure BP: 133/59 BP: (126-156)/(50-91) Respiratory Rate Resp: 24 Resp: [16-38] SpO2 SpO2: 94 % SpO2: [90 %-98 %] Intake/Output Summary (Last 24 hours) at 02/09/2019 0829 Last data filed at 02/09/2019 0400 Gross per 24 hour Intake 2094 ml Output 1950 ml Net 144 ml EXAM GEN: NAD HEENT: at/nc, anicteric, perrl, op clear CV: rrr, no m/r/g PULM: scant crackles and wheezes ABD: soft, nt/nd, nabs EXT: trace edema Neuro: Alert/oriented/appropriate Skin: no rash LABS: Reviewed in eDH. Remarkable for the following: Recent Labs 02/09/19 0355 02/08/19 0020 02/07/19 1030 WBC 9.1 12.2* 14.2* 14.2* 14.2* HGB 13.3* 13.2* 14.6 HCT 38.3* 38.0* 42.7 PLATELET 220 200 245 Recent Labs 02/09/19 0355 02/08/19 0020 02/07/19 0150 02/06/19 2310 NA 133* 132* 133* 135 K 3.6 3.3* 4.7 3.6 CL 96* 96* 94* 98 CO2 28 24 25 24 BUN 24* 28* 26* 26* CREATININE 1.58* 1.70* 1.82* 1.68* GLUCOSE 173 171 145 190 CALCIUM 8.5 8.2* 9.0 8.3* MAGNESIUM -- -- 0.59* 0.52* Recent Labs 02/06/19 2310 AST 17 ALT 15 ALKPHOS 47 BILITOT 2.2* BILIDIR 0.3 MICRO: Recent Labs 02/07/19 0055 URINECULTURE 1,000-9,000 cfu/ml Enterococcus species* Recent Labs 02/06/19 2300 02/06/19 2310 02/07/19 1255 BLOODCX No growth at 2 days. No growth at 2 days. No growth at 1 day. STUDIES: TTE 02/07 1. Limited TTE today 2. There is [...] Systolic excursion of the aortic valve cusps isreduced. Non-coronary cusp is not opening. The mitral valve leaflets are mildly thickened. There isposterior mitral annular calcification. There is mild to [...] and segmental wall motion abnomalities have improved. CT a/p 02/07 1. Slightly edematous transplant kidney within the left lower quadrant with increased perinephric stranding. Correlate with urinalysis for signs of infection. 2. New small bilateral pleural effusions. 3. Cholelithiasis without cholecystitis. REnal U/S 02/07 ]The LEFT renal transplant is slightly enlarged compared to prior study. Renal vein and artery are patent with normal waveforms. The resistive indices are slightly increased at 0.62-0.82 relative to the prior study. No hydronephrosis or perinephric collections CXR 02/06 Cardiomegaly with pulmonary edema Medications: Scheduled Meds: ??? magnesium oxide 400 mg Oral BID ? ? insulin lispro 1-4 Units Subcutaneous 4 Times Daily AC & HS ??? chlorhexidine 15 mL Oral BID ??? piperacillin-tazobactam 3.375 g Intravenous Q8H ??? sodium chloride 0.9 % (flush) 5 mL Intravenous BID ??? apixaban 5 mg Oral BID ??? aspirin 81 mg Oral Daily ??? atorvastatin 40 mg Oral QPM ??? calciTRIol 0.5 mcg Oral Daily ??? clopidogrel 75 mg Oral Daily ??? levothyroxine 137 mcg Oral Daily ??? tamsulosin 0.4 mg Oral Daily ??? tacrolimus 1 mg Oral Nightly ??? tacrolimus 2 mg Oral Daily Continuous Infusions: PRN Meds:.Glucose 40% oral gel OR dextrose OR glucagon (human recombinant), acetaminophen, sodium chloride 0.9 % (flush), lidocaine * Therese Lam MD - 02/08/2019 6:55 PM EDT INFECTIOUS DISEASE FOLLOW-UP NOTE Active ID Issue(s): Enterococcus bacteremia with likely donor transplant pyelonephritis (based on imaging) Antimicrobial Therapy: IV vancomycin IV Zosyn Intercurrent Events/Subjective Data: The patient was febrile throughout yesterday afternoon. Less oxygen requirements compared to yesterday. This morning he was tired and wanted to rest. Did not have any acute complaints. Mentioned that he had chills yesterday that have now resolved. Physical Exam: Last value Range last 24 hrs Temperature Temp: 37.7 ??C (99.9 ??F) Temp: [36.8 ??C (98.2 ??F)-38.4 ??C (101.1 ??F)] Heart Rate Heart Rate: 74 Heart Rate: [58-129] Blood Pressure BP: 142/56 BP: (116-156)/(50-91) Respiratory Rate Resp: (!) 38 Resp: [16-38] SpO2 SpO2: 96 % SpO2: [89 %-100 %] General: Alert and oriented, pleasant, on nasal cannula Head: NC AT EENT: EOMI, no nasal secretions Neck: no LAD, thick neck difficult to assess for JVD Cardiovascular: RRR no obvious MRG Pulmonary: nonlabored respirations abdomen: BS + ND NT no rebound tenderness no guarding Ext: UE and LE WWP. Right upper extremity fistula.distal pulses palpable throughout Skin: no rashes, no splinter hemorrhages Neuro: alert and oriented to person place time and situation. No facial droop. No dysarthia Psych: normal affect Laboratory: Lab Results Component Value Date WBC 12.2 (H) 02/08/2019 HGB 13.2 (L) 02/08/2019 HCT 38.0 (L) 02/08/2019 PLATELET 200 02/08/2019 Lab Results Component Value Date CREATININE 1.70 (H) 02/08/2019 Lab Results Component Value Date ALT 15 02/06/2019 AST 17 02/06/2019 ALKPHOS 47 02/06/2019 BILITOT 2.2 (H) 02/06/2019 Sed Rate (mm/hr) Date Value 02/01/2018 25 (H) CRP (mg/L) Date Value 02/01/2018 8.5 (H) Micro: Blood Culture: 02/06 outside institution positive for enterococcus (sensitivities in scan docs) 02/07 no growth to date Urine Culture: : 1,000-9,000 cfu/ml Enterococcus species ?? Abx while inpatient(Abx-Dates): - Ceftazidime 2 g 02/07 - Cefepime 1 g 02/07 - Piperacillin- tazobactam 02/07 present - Vancomycin 02/07 present Scheduled Meds: ??? magnesium oxide 400 mg Oral BID ? ? insulin lispro 1-4 Units Subcutaneous 4 Times Daily AC & HS ??? chlorhexidine 15 mL Oral BID ??? piperacillin-tazobactam 3.375 g Intravenous Q8H ??? sodium chloride 0.9 % (flush) 5 mL Intravenous BID ??? apixaban 5 mg Oral BID ??? aspirin 81 mg Oral Daily ??? atorvastatin 40 mg Oral QPM ??? calciTRIol 0.5 mcg Oral Daily ??? clopidogrel 75 mg Oral Daily ??? levothyroxine 137 mcg Oral Daily ??? tamsulosin 0.4 mg Oral Daily ??? tacrolimus 1 mg Oral Nightly ??? tacrolimus 2 mg Oral Daily Continuous Infusions: PRN Meds:.Glucose 40% oral gel OR dextrose OR glucagon (human recombinant), acetaminophen, sodium chloride 0.9 % (flush), lidocaine Radiology/Studies/Procedures: CT abd pelvis 02/07: IMPRESSION 1. Slightly edematous transplant kidney within the left lower quadrant with increased perinephric stranding. Correlate with urinalysis for signs of infection. 2. New small bilateral pleural effusions. 3. Cholelithiasis without cholecystitis. Impression: Ethel Bolden is a 68 y.o.male with a history of DM type II, HTN, HCV s/p rx with [facility], donor kidney transplant in 09/2015 on tacrolimus, mycophenolate, ureteral reconstruction sx admitted to the hospital due to enterococcus bacteremia. Patient's TTE is negative for any vegetations. The patient so far has negative blood cultures to date. CT scan does have evidence of perinephric stranding in the area of the transplant suggesting pyelonephritis of the donor kidney. As a sensitivities show susceptibility to ampicillin the Zosyn will be enough to cover this pathogen. For now it isreasonable to narrow his therapy to Zosyn as we continue his treatment course. Recommendations: [] discontinue vancomycin [] continue piperacillin-tazobactam 3.375 gm Q8H [] we will follow blood cultures [] continue to follow fever and leukocytosis curve Patient discussed with ID attending . Recommendations discussed with primary treating team. ID consult service will continue to follow. Please do not hesitate to page with any questions or concerns. Leelee Church MD 02/08/2019 6:55 PM [id number] ID ATTENDING I have seen the patient, reviewed the chart as well as the documentation as written by Dr. Church. The assessment and plan were formulated in discussion with me and I agree with them as documented. Iwould add/modify: Likely transplant pyelonephritis based on imaging, no evidence of other intra- abdominal source on imaging. Ok to stop vanco given sensitivities of enterococcus. Follow up urine culture, will hope to narrow therapy for enterococcus as long as no other organisms present on final culture data. Therese Lam MD Infectious Diseases * Patricia Jones RN - 02/08/2019 12:17 PM EDT CM spoke with pt aboutDC POC. CM mentioned SNF since pt still ln [facility] and pt declined NOTgoing to any SNF-[facility] will come to me or my can drive me to OutPt Therapy. * Danny Hicks MD - 02/08/2019 8:29 AM EDT Hospital Medicine Attending Daily Progress Note Admit Date: 02/06/2019 ( Hospital Day 2 days ) Active Hospital Problems Diagnosis ??? Fever Resolved Hospital Problems No resolved problems to display. ASSESSMENT: 68 yo M with h/o HCV s/p Harvoni, DMII, HTN, and donor kidney transplant 09/16/15 who was recently discharged from the hospital after being admitted with NSTEMI s/p PCI and new aflutter complicated by RVR who represented 24 hours after being discharged with fever, and hypoxic respiratory failure. Regarding the patient's sepsis, his OSH BCx are growing enteroccocus as is his urine. Will f/u on sensitivities but cont with zosyn and vanc at this time. A TTE did not show any vegetations and a CT of his a/p did not show any potential intrabdominal source. Appreciate input from ID but reassuringly pt overall status is improving. WIll cont to hold cellcept at this time after discussing with Dr. Eagle. Will cont broad spectrum abx. I called the patient's to update her on the situation. PLAN: #Fever in setting of immunocompromised state #Sepsis: leukocytosis, fever, hypotension #Enterococcus bacteremia - f/u BCx and UCx, with OSH growing enterococcus - repeat BCx NGTD - legionella neg - cont zosyn and vancomycin - TTE negative for vegetation - appreciate input from ID - hold cellcept while actively infected - CD4/8 >2, IgG elevated #RAY in setting of CKD #Transplanted kidney - strict I/O's - monitor renal function and avoid nephrotoxic agents - cont home calcitriol - cont home tacrolimus - hold cellcept - consult transplant medicine #acute hypoxic resp failure #acute cardiogenic pulm edema #acute on chronic systolic heart failure #Question PNA in setting of fever - Oxygenation improving, will give additional lasix and reassess need daily - wean O2 as tolerated #DMII #hypothyroidism - hold home glipizide - insulin sliding scale - cont home levothyroxine #aflutter #NSTEMI - cont apixaban - cont asa and plavix - cont atorvastatin - holding metoprolol in setting of sepsis #FEN/PPx/Disposition - Electrolytes: monitor daily - Nutrition: carb control level 2 with 2g Na restriction - DVT PPx: apixaban - Glycemic control: insulin sliding scale - Disposition: PT/OT eval, transfer from [facility] today IPI Certification I certify that I am a D-H credentialed attending provider with admitting privileges and that the patient meets or has met medical necessity to require an inpatient IPI level of care meeting a minimumof two midnights or is on the [facility] inpatient only procedure list (status C) due to: acute respiratory compromise and/or hypoxia requiring assessment every 4 hours and the ability to respond immediately to the patient's need Danny Hicks MD TEAM/PAGER: [phone] Subjective/24hr events: - O2 requirement decreasing, pt states he feels much better, CT a/p and TTE obtained, repeat BCx NGTD ROS: Patient denies nausea/vomiting, diarrhea/constipation, Dysuria. Vitals: Last value Range last 24 hrs Temperature Temp: 37.1 ??C (98.8 ??F) Temp: [36.6 ??C (97.9 ??F)-39.4 ??C (102.9 ??F)] Heart Rate Heart Rate: 61 Heart Rate: [59-129] Blood Pressure BP: 140/69 BP: (112-159)/(40-96) Respiratory Rate Resp: 22 Resp: [22-37] SpO2 SpO2: 92 % SpO2: [89 %-100 %] Intake/Output Summary (Last 24 hours) at 02/08/2019828 Last data filed at 02/08/2019 0800 Gross per 24 hour Intake 2304 ml Output 1470 ml Net 834 ml EXAM GEN: NAD, tired HEENT: at/nc, anicteric, perrl, op clear CV: rrr, no m/r/g PULM: cb/l crackles and wheezes, tachypneic ABD: soft, nt/nd, nabs EXT: trace edema Neuro: Alert/oriented/appropriate Skin: no rash LABS: Reviewed in eDH. Remarkable for the following: Recent Labs 02/08/19 0020 02/07/19 1030 02/07/19 0150 WBC 12.2* 14.2* 14.2* 14.2* 19.7* HGB 13.2* 14.6 15.8 HCT 38.0* 42.7 46.6 PLATELET 200 245 260 Recent Labs 02/08/19 0020 02/07/19 0150 02/06/19 2310 NA 132* 133* 135 K 3.3* 4.7 3.6 CL 96* 94* 98 CO2 24 25 24 BUN 28* 26* 26* CREATININE 1.70* 1.82* 1.68* GLUCOSE 171 145 190 CALCIUM 8.2* 9.0 8.3* MAGNESIUM -- 0.59* 0.52* Recent Labs 02/06/19 2310 AST 17 ALT 15 ALKPHOS 47 BILITOT 2.2* BILIDIR 0.3 MICRO: No results for input(s): URINECULTURE in the last 720 hours. Recent Labs 02/06/19 2300 02/06/19 2310 BLOODCX No growth at 1 day. No growth at 1 day. STUDIES: TTE 02/07 1. Limited TTE today 2. There is [...] Systolic excursion of the aortic valve cusps isreduced. Non-coronary cusp is not opening. The mitral valve leaflets are mildly thickened. There isposterior mitral annular calcification. There is mild to [...] and segmental wall motion abnomalities have improved. CT a/p 02/07 1. Slightly edematous transplant kidney within the left lower quadrant with increased perinephric stranding. Correlate with urinalysis for signs of infection. 2. New small bilateral pleural effusions. 3. Cholelithiasis without cholecystitis. REnal U/S 02/07 ]The LEFT renal transplant is slightly enlarged compared to prior study. Renal vein and artery are patent with normal waveforms. The resistive indices are slightly increased at 0.62-0.82 relative to the prior study. No hydronephrosis or perinephric collections CXR 02/06 Cardiomegaly with pulmonary edema Medications: Scheduled Meds: ??? magnesium oxide 400 mg Oral BID ??? Vancomycin Level - MAR Order Reminder NOT APPLICABLE Once ? ? insulin lispro 1-4 Units Subcutaneous 4 Times Daily AC & HS ??? chlorhexidine 15 mL Oral BID ??? piperacillin-tazobactam 3.375 g Intravenous Q8H ??? sodium chloride 0.9 % (flush) 5 mL Intravenous BID ??? apixaban 5 mg Oral BID ??? aspirin 81 mg Oral Daily ??? atorvastatin 40 mg Oral QPM ??? calciTRIol 0.5 mcg Oral Daily ??? clopidogrel 75 mg Oral Daily ??? levothyroxine 137 mcg Oral Daily ??? tamsulosin 0.4 mg Oral Daily ??? tacrolimus 1 mg Oral Nightly ??? tacrolimus 2 mg Oral Daily Continuous Infusions: PRN Meds:.Glucose 40% oral gel OR dextrose OR glucagon (human recombinant), acetaminophen, vancomycin- intermittent dosing per levels, sodium chloride 0.9 % (flush), lidocaine, sodium chloride 0.9 % (flush) * Elba Maciel, CHILD AND YOUTH PROGRAM ASSISTANT - 02/08/2019 3:09 AM EDT Respiratory Therapy Heated Humidified High Flow INDICATIONS: Heat/Humidification HIGH FLOW SETTINGS: Interface: High flow nasal cannula Flow: 40 L/min FiO2: (S) 35 % VITAL SIGNS: HR: (!) 101 RR: 30 SpO2: 91 % SKIN ASSESSMENT: So signs of breakdown, redness, or irritation CURRENT MEDICATIONS: No medications ordered BREATH SOUNDS: Crackles, diminished Last Chest X-ray: Results for orders placed during the hospital encounter of 02/06/19 XR Chest One View Narrative EXAMINATION: XR CHEST ONE VIEW CLINICAL HISTORY: pt with hx of CHF with hypoxia TECHNIQUE: 1 view of the chest COMPARISON: Radiograph dated 02/02/2019 FINDINGS: Patchy opacities are seen in the bilateral lungs. The heart is enlarged. Atelectasis is present at the lower lobes bilaterally. No pneumothorax. The osseous structures are unchanged. Again seen is an 11 mm hypodensity in the right proximal humerus which has a benign appearance. Impression Cardiomegaly with pulmonary edema Thank you for letting us participate in the care of this patient. For questions regarding this report, please contact the number below. SSMENT: received on high flow - nasal cannula in place with good positioning. All equipment in good working order. ambu bag at bedside. PLAN: Continue to wean fiO2 as tolerated. Elba Maciel RCP * Tish Calderon, RT - 02/07/2019 4:08 PM EDT Respiratory Therapy Heated Humidified High Flow INDICATIONS: High O2 requirement HIGH FLOW SETTINGS: Interface: High flow nasal cannula Flow: 40 L/min FiO2: 40 % VITAL SIGNS: HR: 82 RR: (!) 33 SpO2: 96 % Last Chest X-ray: Results for orders placed during the hospital encounter of 02/06/19 XR Chest One View Narrative EXAMINATION: XR CHEST ONE VIEW CLINICAL HISTORY: pt with hx of CHF with hypoxia TECHNIQUE: 1 view of the chest COMPARISON: Radiograph dated 02/02/2019 FINDINGS: Patchy opacities are seen in the bilateral lungs. The heart is enlarged. Atelectasis is present at the lower lobes bilaterally. No pneumothorax. The osseous structures are unchanged. Again seen is an 11 mm hypodensity in the right proximal humerus which has a benign appearance. Impression Cardiomegaly with pulmonary edema Thank you for letting us participate in the care of this patient. For questions regarding this report, please contact the number below. SSMENT: Patient received on HFNC 50L/50%. Settings weaned to 40L/40% per SpO2. Patient does have episodes of desaturation if NC moves out of nose. PLAN: Continue to titrate settings as tolerated. RT Shell * Maureen Holloway RD - 02/07/2019 12:31 PM EDT Nutrition Initial Note Ethel Bolden is a 68 y.o. male Reason for intervention: ICU stay & 1 gram Na diet Nutrition Recommendations: Suggest liberalize diet to level 2 CHO 2 gram Na; order pended Patient Active Problem List Diagnosis Code ??? DM type 2 (diabetes mellitus, type 2) E11.9 ??? Hypertension I10 ??? DJD (degenerative joint disease) M19.90 ??? Hematuria R31.9 ??? HCV (hepatitis C virus) B19.20 ??? CGN (chronic glomerulonephritis) N03.9 ??? Essential hypertension I10 ??? Hepatitis C virus infection B19.20 ??? Kidney transplant infection T86.13 ??? RAY (acute kidney injury) N17.9 ??? UTI (urinary tract infection) N39.0 ??? Fever R50.9 ??? Bacteremia due to coagulase-negative Staphylococcus R78.81 ??? Ureteral stricture N13.5 ??? Dehydration E86.0 ??? Kidney replaced by transplant Z94.0 ??? Encounter for long-term (current) use of other medications Z79.899 ??? Aftercare following organ transplant Z48.298 ??? Sepsis A41.9 ??? Immunosuppression D89.9 ??? Type 2 diabetes mellitus with complication, without long-term current use of insulin E11.8 ??? Weight increase R63.5 ??? CAH (chronic active hepatitis) K73.2 ??? Prophylactic immunotherapy Z29.8 ??? 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 Vitamin D deficiency E55.9 ??? Debility R53.81 ??? Pain of right lower extremity M79.604 ??? Obesity (BMI 30.0-34.9) E66.9 ??? S/P R TKA 11/25/17 Dr. Dale Z96.651 ??? Hydronephrosis N13.30 ??? Atrial fibrillation with RVR - had flutter initially, then fib I48.91 Past Medical History: Diagnosis Date ??? Back pain ??? Colon polyp ??? CVA (cerebral vascular accident) Per report but no deficits ??? ESRD (end stage renal disease) ??? GERD (gastroesophageal reflux disease) ??? HTN (hypertension) ??? Microhematuria ??? Type 2 diabetes mellitus Active Orders Diet Carb Control diet CHO counting level 2 2 GM K; 1 GM NA Frequency: Effective Now Number of Occurrences: Until Specified Admit Weight: 101.42 kg Estimated body mass index is 31.19 kg/m?? as calculated from the following: Height as of this encounter: 180.3 cm (5' 11). Weight as of this encounter: 101.4 kg (223 lb 9.6 oz). [place] Body Weight (IBW): [place] body weight: 75.3 kg (166 lb 0.1 oz) Adjusted ideal body weight: 85.7 kg (189 lb 0.7 oz) Estimated needs: Calories: 1800 Protein: 85 grams Today's medications: calcitriol, lasix, lispro, prograf Lab Results Component Value Date NA 133 (L) 02/07/2019 K 4.7 02/07/2019 CL 94 (L) 02/07/2019 CO2 25 02/07/2019 BUN 26 (H) 02/07/2019 CREATININE 1.82 (H) 02/07/2019 GLUCOSE 145 02/07/2019 MAGNESIUM 0.59 (L) 02/07/2019 CALCIUM 9.0 02/07/2019 PHOS 3.7 01/31/2019 AST 17 02/06/2019 ALT 15 02/06/2019 ALKPHOS 47 02/06/2019 BILITOT 2.2 (H) 02/06/2019 BILIDIR 0.3 02/06/2019 TRIG 166 09/15/2018 CRP 8.5 (H) 02/01/2018 Assessment: Pt seen per 1 gram Na 2 gram K level 2 CHO Controlled diet. Serum K now wnl and 1 gram Na is typically reserved for pediatrics ( difficult for adults to meet nutrition needs) so Level 2 CHO Controlled 2 gram NA diet suggested. Last A1C of 6 reflects good glycemic control. Pt reports no specific diet compliance. He eats sweets at times and altho does not use table salt he does eat someham and low salt guzman. Reviewed benefit of low Na diet to preserve donated kidney- pt denies need for information at present but reports improving appetite. Nutrition Services to attempt f/u for education needs once out of ICU. I was able to reach the patient's provider, Suzy Hicks MD #[id number], regarding above. REYNALDO URIBE Beeper #: [id number] * Danny Hicks MD - 02/07/2019 8:27 AM EDT Hospital Medicine Attending Daily Progress Note Admit Date: 02/06/2019 ( Hospital Day 1 day ) Active Hospital Problems Diagnosis ??? Fever Resolved Hospital Problems No resolved problems to display. ASSESSMENT: 68 yo M with h/o HCV s/p Harvoni, DMII, HTN, and donor kidney transplant 09/16/15 who was recently discharged from the hospital after being admitted with NSTEMI s/p PCI and new aflutter complicated by RVR who represented 24 hours after being discharged with fever, and hypoxic respiratory failure. Regarding the patient's sepsis, his OSH BCx are reportedly growing enteroccocus with an unclear source at this time but given patient's immunosuppression will discuss with ID about need for further imaging/work-up. Will plan to obtain repeat BCx and a TTE now. WIll cont to hold cellcept at this time after discussing with Dr. Eagle. Will cont broad spectrum abx. I called the patient's to update her on the situation. She was understandably concerned and upset that the patient had to return to the hospital so early. I listened to her concerns and also informed her that we would keep her updated on his condition with any changes and improvements. PLAN: #Fever in setting of immunocompromised state #Sepsis: leukocytosis, fever, hypotension #Enterococcus bacteremia - f/u BCx and UCx, with OSH reportedly growing enterococcus - repeat BCx - f/u legionella - if pt able to produce sputum will obtain sputum Cx - switch ceftazidime to cefepime, cont vancomycin - obtain TTE - consult ID - hold cellcept while actively infected - obtain CD4/8 and 19 and IgG to assess status of immune system #RAY in setting of CKD #Transplanted kidney - strict I/O's - f/u urine lytes - monitor renal function and avoid nephrotoxic agents - cont home calcitriol - cont home tacrolimus - hold cellcept - consult transplant medicine #acute hypoxic resp failure #acute cardiogenic pulm edema #acute on chronic systolic heart failure #Question PNA in setting of fever - s/p 40mg IV lasix, will give additional lasix and reassess need daily - repeat TTE - wean O2 as tolerated #DMII #hypothyroidism - hold home glipizide - insulin sliding scale - cont home levothyroxine #aflutter #NSTEMI - cont apixaban - cont asa and plavix - cont atorvastatin - holding metoprolol in setting of sepsis #FEN/PPx/Disposition - Electrolytes: monitor daily - Nutrition: carb control level 2 with 2g Na restriction - DVT PPx: apixaban - Glycemic control: insulin sliding scale - [facility] IPI Certification I certify that I am a D-H credentialed attending provider with admitting privileges and that the patient meets or has met medical necessity to require an inpatient IPI level of care meeting a minimumof two midnights or is on the [facility] inpatient only procedure list (status C) due to: acute respiratory compromise and/or hypoxia requiring assessment every 4 hours and the ability to respond immediately to the patient's need Danny Hicks MD TEAM/PAGER: [phone] Subjective/24hr events: - pt reports feeling better this morning, able to remember getting sick at home, feels like his breathing has improved with the lasix, understandably concerned with his course ROS: Patient denies nausea/vomiting, diarrhea/constipation, Dysuria. Vitals: Last value Range last 24 hrs Temperature Temp: 37.4 ??C (99.3 ??F) Temp: [37.3 ??C (99.1 ??F)-40.5 ??C (104.9 ??F)] Heart Rate Heart Rate: 69 Heart Rate: [51-116] Blood Pressure BP: 167/46 BP: (91-167)/(45-102) Respiratory Rate Resp: 29 Resp: [14-40] SpO2 SpO2: 97 % SpO2: [90 %-98 %] Intake/Output Summary (Last 24 hours) at 02/07/2019 0828 Last data filed at 02/07/2019 0800 Gross per 24 hour Intake 739 ml Output 450 ml Net 289 ml EXAM GEN: NAD, tired HEENT: at/nc, anicteric, perrl, op clear CV: rrr, no m/r/g PULM: cb/l crackles and wheezes, tachypneic ABD: soft, nt/nd, nabs EXT: trace edema Neuro: Alert/oriented/appropriate Skin: no rash LABS: Reviewed in eDH. Remarkable for the following: Recent Labs 02/07/1914902/06/192309 WBC 19.7* 14.0* HGB 15.8 13.9 HCT 46.6 40.5 PLATELET 260 238 Recent Labs 02/07/1914902/06/19 2310 02/05/19 0747 02/04/19 1935 NA 133* 135 -- 142 K 4.7 3.6 -- 3.4* CL 94* 98 -- 98 CO2 25 24 -- 31 BUN 26* 26* -- 20 CREATININE 1.82* 1.68* -- 1.43 GLUCOSE 145 190 -- -- CALCIUM 9.0 8.3* -- 9.2 MAGNESIUM 0.59* 0.52* 0.67* -- Recent Labs 02/06/19 2310 AST 17 ALT 15 ALKPHOS 47 BILITOT 2.2* BILIDIR 0.3 MICRO: No results for input(s): URINECULTURE in the last 720 hours. No results for input(s): BLOODCX in the last 720 hours. STUDIES: CXR 02/06 Cardiomegaly with pulmonary edema Medications: Scheduled Meds: ? ? insulin lispro 1-4 Units Subcutaneous 4 Times Daily AC & HS ??? cefTAZidime 2 g Intravenous Q12H ??? chlorhexidine 15 mL Oral BID ??? Vancomycin Level - MAR Order Reminder NOT APPLICABLE Once ??? sodium chloride 0.9 % (flush) 5 mL Intravenous BID ??? apixaban 5 mg Oral BID ??? aspirin 81 mg Oral Daily ??? atorvastatin 40 mg Oral QPM ??? calciTRIol 0.5 mcg Oral Daily ??? clopidogrel 75 mg Oral Daily ??? glipiZIDE 2.5 mg Oral BID AC ??? levothyroxine 137 mcg Oral Daily ??? tamsulosin 0.4 mg Oral Daily ??? tacrolimus 1 mg Oral Nightly ??? tacrolimus 2 mg Oral Daily Continuous Infusions: PRN Meds:.Glucose 40% oral gel OR dextrose OR glucagon (human recombinant), acetaminophen, vancomycin- intermittent dosing per levels, sodium chloride 0.9 % (flush), lidocaine, sodium chloride 0.9 % (flush) * Les Betancourt [facility] - 02/07/2019 3:28 AM EDT Respiratory Therapy Heated Humidified High Flow INDICATIONS: High O2 requirement and Work of breathing HIGH FLOW SETTINGS: Interface: High flow nasal cannula Flow: 45 L/min FiO2: 50 % VITAL SIGNS: HR: 83 RR: (!) 40 SpO2: 94 % SKIN ASSESSMENT: WDL BREATH SOUNDS: diminished/crackles Last Chest X-ray: Results for orders placed during the hospital encounter of 02/06/19 XR Chest One View Narrative EXAMINATION: XR CHEST ONE VIEW CLINICAL HISTORY: pt with hx of CHF with hypoxia TECHNIQUE: 1 view of the chest COMPARISON: Radiograph dated 02/02/2019 FINDINGS: Patchy opacities are seen in the bilateral lungs. The heart is enlarged. Atelectasis is present at the lower lobes bilaterally. No pneumothorax. The osseous structures are unchanged. Again seen is an 11 mm hypodensity in the right proximal humerus which has a benign appearance. Impression Cardiomegaly with pulmonary edema Thank you for letting us participate in the care of this patient. For questions regarding this report, please contact the number below. SSMENT: ~02:30 CHILD AND YOUTH PROGRAM ASSISTANT paged to assess pt for increasing FiO2 requirement -placed pt on HFNC 45L on 50% FiO2 -ABG on above settings: 7.50/33/77/25 -RR: 35, SpO2: 96% PLAN: Pt transferred to SICU Les Betancourt RCP * Perla Perez, RN - 02/07/2019 2:37 AM EDT Patient arrived to floor at 2300 02/06. Patient was lethargic due to receiving 1x dose of ativan of route. See eDH for VSS. Patient required more o2 over the course of the shift. TMAX 104.9F, tylenol given. IV abx given as ordered and 1x neb treatment. IV lasix given for fluid overload. EKG, chest xray obtained. Life safety following and RT. 2nd IV placed by IV team. Urine culture obtained. Patientmoved to critical care for closer monitoring. documented in this encounter H&P Notes * Trena Stoddard MD - 02/06/2019 8:32 PM EDT [facility] Medicine History and Physical History provided by: chart History limited by: pt mental status Date of Admission: (Not on file) ( Hospital Day 0 days ) CC: OSH transfer for fever History of present Illness: Ethel Bolden is a 68 y.o. male with a hx of HCV (s/p Harvoni ), DM, HTN who is s/p donor kidney transplant 09/16/15, h/o ureteral reconstructive surgery due to ureter stricture not amenable to dilatation, and recent hospitalization for A-flutter with RVR, hypoxic RF with HF exacerbation in context of newly reduced EF and NSTEMI s/p PCI. During this past hospitalization, patient was noted to be in a flutter RVR, and was rate controlledwith metoprolol, also with evidence of a NSTEMI, underwent cardiac catheterization with stent placement. Patient was initiated on eliquis. Also with acute hypoxic respiratory failure in the setting of volume overload, which was managed with diuresis patient was weaned off oxygen, by discharge . Course also complicated by RAY which was felt to be in the setting of decreased perfusion vs diuresis. Since discharge patient reports shortness of breath. En route given ativan 1 mg for anxiety, and small bolus d/t hypotension. Of note on outside hospital records with chest x-ray showing evidence of a infiltrate, patient with reported fever of 103. On arrival with 100.6, blood pressure soft also with bradycardia patient, notably hypoxic [id number]% Ventimask, chest x-ray with evidence of pulmonary edema, Given 40 of IV Lasix with good urine output. Past Medical History: Past Medical History: Diagnosis Date ??? Back pain ??? Colon polyp ??? CVA (cerebral vascular accident) Per report but no deficits ??? ESRD (end stage renal disease) ??? GERD (gastroesophageal reflux disease) ??? HTN (hypertension) ??? Microhematuria ??? Type 2 diabetes mellitus Past Surgical History: Past Surgical History: Procedure Laterality Date ??? PRO ANASTOMOSIS, AV, ANY SITE Left 05/09/2015 AV FISTULA CREATION, DIRECT HEMODIALYSIS, ANY SITE, EG ASHWINI FISTULA UPPER EXTREMITY performed by Que Amaro MD at [facility] OR ??? PRO CYSTOURETHROSCOPY, URETER CATHETER Left 06/17/2018 CYSTO, RETROGRADE, URETEROPYELOGRAPHY (WRVU 2.37) performed by Edinson Grider III, MD at [facility] ??? PRO REIMPLANT URETER, SINGLE URETER Left 05/20/2016 @URETERONEOCYSTOSTOMY ANASTOMOSIS OF SINGLE URETER TO BLADDER performed by Santosh Arredondo MD at [facility] OR ??? PRO REIMPLANT URETER, SINGLE URETER N/A 05/20/2016 @URETERONEOCYSTOSTOMY ANASTOMOSIS OF SINGLE URETER TO BLADDER performed by Que Amaro MD at [facility] OR ??? PRO TOTAL KNEE ARTHROPLASTY Right 11/25/2017 TOTAL KNEE ARTHROPLASTY (WRVU 20.72) performed by Breezy Dale MD at [facility] OR ??? PRO TRANSPLANT, PREP CADAVER RENAL GRAFT N/A 09/16/2015 @PREPARATION CADAVERIC RENAL ALLOGRAFT performed by Franko Larkin MD at [facility] OR ??? PRO TRANSPLANTATION OF KIDNEY N/A 09/16/2015 @KIDNEY TRANSPLANT, WITHOUT RECIPIENT NEPHRECTOMY performed by Franko Larkin MD at [facility] OR ??? RENAL TRANSPLANT LEFT Left 01/31/2019 US Renal Transplant Left 01/31/2019 [facility] RAD ULTRASOUND Family Medical History: Family History Problem Relation Age of Onset ??? Chronic Obstructive Pulmonary Disease Mother ??? Arrhythmia Mother ??? Heart Disease Father Social Hx: Social History Socioeconomic History ??? Marital status: Spouse name: Not on file ??? Number of children: Not on file ??? Years of education: Not on file ??? Highest education level: Not on file Occupational History ??? Not on file Social Needs ??? Financial resource strain: Not on file ??? Food insecurity: Worry: Not on file Inability: Not on file ??? Transportation needs: Medical: Not on file Non-medical: Not on file Tobacco Use ??? Smoking status: Current Some Day Smoker Types: Cigars Last attempt to quit: 01/02/2015 Years since quittin.0 ??? Smokeless tobacco: Never Used ??? Tobacco comment: cigars, one weekly Substance and Sexual Activity ??? Alcohol use: No ??? Drug use: Yes Types: Marijuana Comment: 1-2x a week ??? Sexual activity: Not on file Lifestyle ??? Physical activity: Days per week: Not on file Minutes per session: Not on file ??? Stress: Not on file Relationships ??? Social connections: Talks on phone: Not on file Gets together: Not on file Attends temple service: Not on file Active member of club or organization: Not on file Attends meetings of clubs or organizations: Not on file Relationship status: Not on file ??? Intimate partner violence: Fear of current or ex partner: Not on file Emotionally abused: Not on file Physically abused: Not on file Forced sexual activity: Not on file Other Topics Concern ??? Not on file Social History Narrative ??? Not on file Medications: No medications prior to admission. Allergies as of 02/06/2019 ??? (No Known Allergies) Allergies: No Known Allergies ROS: Unable to assess given patient's mental status Vitals: Last value Range last 24 hrs Temperature Temp: -- Heart Rate Heart Rate: -- Blood Pressure BP: -- Respiratory Rate Resp: -- SpO2 SpO2: -- No intake or output data in the 24 hours ending 02/06/192032 No data found. Wt Readings from Last 3 Encounters: 02/03/19 107 kg (235 lb 14.3 oz) 09/15/18 105.2 kg (232 lb) 06/16/18 98.9 kg (218 lb) Physical Exam: Gen: Drowsy but arousable and O x2 HEENT: PERRLA, EOMI, Anicteric sclera Neck: Supple with normal ROM, No cervical LAD appreciated, +JVP CV: Bradycardic S1 1 S2 no murmur Resp: Poor respiratory effort no obvious crackles on exam Abd: +normoactive BS, soft NTND Back: No CVA tenderness noted EXT: Trace edema bilaterally Neuro: Tongue midline, moving extremities equally, unable to comply with neuro exam Labs: Recent Labs 02/04/19 0340 02/03/19 0634 02/02/19 1815 02/02/19 0612 02/01/19 0740 02/01/19 0310 01/31/19 2036 WBC 9.8* 8.9 -- 9.7* 9.6* 10.5* 12.1* HGB 14.1 12.8* -- 14.0 14.0 13.5* 15.2 HCT 41.9 38.0* 41.0 42.4 41.2 39.7* 44.7 PLATELET 247 200 -- 206 206 215 238 NEUTROABS -- -- -- -- 7.40* 8.18* 9.84* Recent Labs 02/04/19 1935 02/04/19 0340 02/03/19 0634 NA 142 139 137 K 3.4* 3.8 3.4* CL 98 98 101 CO2 31 28 26 BUN 20 21* 22* CREATININE 1.43 1.56* 1.44 Recent Labs 02/05/19 0747 02/04/19 1935 02/04/19 0340 02/03/19 0634 01/31/19 0946 CALCIUM -- 9.2 8.7 8.4* < > 10.3 MAGNESIUM 0.67* -- 0.69 0.71 < > 0.76 PHOS -- -- -- -- -- 3.7 < > = values in this interval not displayed. Recent Labs 01/31/19 0946 AST 19 ALT 22 ALKPHOS 68 BILITOT 2.8* No results for input(s): INR, PT, PTT in the last 72 hours. Troponin T: 0.05 -> 0.05 microbiology: Blood Culture: In process Urine Culture: In process Sputum culture ordered Legionella urine antigen ordered Imaging Studies: Chest x-ray with pulmonary edema ECG: Sinus rhythm with T wave inversions in lateral leads Assessment: Ethel Bolden is a 68 y.o. male with history of HCV (s/p Dina ), DM, HTN who is s/p deceaseddonor kidney transplant 09/16/15, h/o ureteral reconstructive surgery due to ureter stricture not amenable to dilatation, and recent hospitalization for A-flutter with RVR, hypoxic RF with HF exacerbation in context of newly reduced EF and NSTEMI s/p PCI, now presenting with fever, leukocytosis withconcern for infectious etiology potentially pulmonary in the setting of hypoxia. Plan: #Fever in immunocompromised host on tacrolimus and CellCept, currently without evidence of lactic acidosis however with soft blood pressures overnight, persistently febrile overnight: potential sources include pulmonary in the setting of hypoxia as well as notable infiltrate on outside chest x-ray,UTI in the setting of white cells found on urine, versus bacteremia -Follow-up blood culture and urine culture -Continue on ceftazidime and vancomycin -Given persistent fevers and concern for sepsis, held off on restarting CellCept, will need to confirm with renal transplant about this med #RAY in a patient with kidney transplant, unclear if in the setting of CRS given hx of HFrEF and overload vs prolonged pre-renal state with ?ATN, not retaining; will not push fluids overnight, given - strict I/o, monitor urine output carefully - hold off on further diuresis, s/p 40 mg IV x 1 - f/u urine lytes for further assessment -Renal transplant ultrasound ordered -will need to contact Dr. Eagle in the morning -Continued on home tacrolimus -Held home CellCept in the setting of sepsis, confirmed with renal regarding reinitiation # Hypoxia: hx of HFrEF 30% with recent NSTEMI status post stenting, patient with report of shortness of breath at outside hospital unclear if this is a multifactorial issue with pneumonia and underlying heart failure as was given fluids in the ambulance ride. Given 1 dose of Lasix with good urine output, persistently hypoxic requiring high flow nasal cannula 50% -Initiated on H CAP treatment, antibiotics as above -Continue to monitor closely in the stepdown unit -EKG obtained on arrival with lateral T wave inversions sinus rhythm troponin obtained and repeated0.05 -> 0.05 - can consider PE as an alternative etiology if not improving - sputum culture pending - s/p 1 dose of IV lasix 40 mg # Chronic -DM: Continue with glipizide 2mg twice a day, insulin sliding scale Hypothyroidism : Continue Synthroid BPH continue Flomax -A flutter: Continue Eliquis 5 mg twice daily appropriate dosing for renal function -CV: HFrEF s/p stent : EF 30%, continue with Plavix aspirin, Lipitor # Routine - DVT ppx:eliquis - Diet/Fluids: Renal - Access: IV - Dispo: ISCU - CODE STATUS: FC Will need to reconfirm CODE STATUS with patient's , and update family IPI Certification I certify that I am a [facility] credentialed attending provider with admitting privileges and that the patient meets or has met medical necessity to require an inpatient IPI level of care meeting a minimumof two midnights or is on the CMS inpatient only procedure list (status C) due to: hypoxic respiratory failure, RAY, and sepsis delivery of critical care services as outlined in assessment and plan above 35 minutes were spent with patient in critical care due to respiratory failure and sepsis. MD Trena Sotomayor MD documented in this encounter Miscellaneous Notes * Plan of Care - Sohan Smith RN - 02/10/2019 11:14 PM EDT Problem: Patient Care Overview Goal: Plan of Care Review Outcome: Ongoing (Interventions Implemented as Appropriate) 02/10/19 2308 Coping/Psychosocial Plan Of Care Reviewed With patient Plan of Care Review Progress progress toward functional goals as expected OUTCOME EVALUATION NOTE: OUTCOME SUMMARY: Patient calm, cooperative, able to make needs known, reviewed plan of care, patient in agreement, left thigh pain pt attributes to lying in bed managed with PRN tylenol with good affect per patient report, will continue to monitor PLAN MOVING FORWARD: -encourage independence -sx management -antibx INDIVIDUALIZED FALL PREVENTION INTERVENTIONS: Patient-specific fall risk factors per assessment: [current deficits]: Unfamiliar environment, deconditioning, recent illness, antibx, advanced age Assistance [level of assistance required for transfers and ambulation]: Patient is independent as at baseline Supervision [direct monitoring required during toileting and ADLs]: Patient is independent as at baseline Surveillance [continuous indirect monitoring]: Purposeful rounding, room near unit station, call light in reach Patient-specific fall prevention interventions for sensory deficits provided, if applicable: CPG GOAL OUTCOME EVALUATION: Goal: Fall Prevention-Safe Patient Handling Outcome: Ongoing (Interventions Implemented as Appropriate) 02/10/19 1405 02/10/19 1600 02/10/19 2134 Daily Care Interventions Self-Care Promotion -- BADL personal routines maintained;independence encouraged -- Stephens Fall Risk History of Falling -- -- 0 Secondary Diagnosis -- -- 15 Ambulatory Aids -- -- 0 Intravenous Therapy/Heparin/Saline Lock -- -- 20 Gait/Transferring -- -- 10 Mental Status -- -- 0 Score -- -- 45 OTHER Stephens Fall Risk -- -- High Restraint Interventions Safety Promotion/Fall Prevention -- -- safety round/check completed Positioning Body Position -- -- independent Activity Activity Type -- activity adjusted per tolerance -- Activity Assistance Provided -- assistance, stand-by -- Assistive Device Utilized none -- -- Goal: Infection Control Outcome: Ongoing (Interventions Implemented as Appropriate) 02/10/192133 Safety Interventions Isolation Precautions standard precautions maintained Infection Prevention single patient room provided Coping Strategies Supportive Measures relaxation techniques promoted * Plan of Care - Torie Hagan, PT - 02/10/2019 3:45 PM EDT Physical Therapy Note Treatment Number PT: 2 Patient profile: Ethel Bolden is a 68 y.o. right-handed male with h/o HCV s/p Harvoni, DMII, HTN, and donor kidney transplant 09/16/15 who was recently discharged from the hospital afterbeing admitted with NSTEMI s/p PCI and new aflutter complicated by RVR admitted on 02/06/[address] Danny Hicks MD with fever, leukocytosis, and hypotension. Diagnosed with sepsis with enterococcus bacteremia and likely donor transplant pyelonephritis. Interval History: transferred from ICU to floor Social History: lives with his in [place], [place] Home set-up: 2-level home but stays on 1st level Stairs: 4 with rail to enter Baseline Mobility: ambulated without device Equipment at home: walker, cane Fall history: no Precautions/Special Considerations: recent NSTEMI and s/p PCI Mobility and Positioning Recommendations: ?? Pt to ambulate with supervision without device for distances <100 feet and with straight canefor >100 feet. ?? Please encourage up to chair for meal times as able. Subjective: It's amazing to think that 2 weeks ago I was riding my motorcycle all over the place! Objective: Patient seen for physical therapy and demonstrated the following: Pain: Number Location At rest 0/10 With activity 0/10 Vital Signs: stable on room air Bed Mobility: Supine to Sit: independent Sit to Supine: independent Transfers: Sit to Stand: independent using no assistive device Stand to Sit: independent using no assistive device Bed to Chair: independent using no assistive device Gait: Distance: >300 feet Device used: no assistive device x 100 feet; used straight cane to ambulate another 200 feet Level of assist: independent Gait mechanics: reciprocal step-through; short step length Stairs: independent up and down 4 steps with one railing Balance: Sitting Static: good Sitting Dynamic: good Standing Static: good without device to use urinal Standing Dynamic / Gait: good without device to bend to apple picking supervisor caution sign and turn to place itto the side Education: DIscussed potential need to use cane on outdoor surfaces and when doing stairs. Pt left L sidelying in bed using his iphone following visit. Assessment: Ethel Bolden was seen today for physical therapy treatment session for continuation of POC. Much improved energy level, mental status, and mobility today compared to yesterday. He isambulating without a device for household level distances and with a cane for longer distance. He managed 4 stairs with a railing with good stability as well. Pt will benefit from ongoing therapeutic interventions in home setting to maximize higher level mobility and balance. Discharge Recommendations: Based on the current findings, Anticipated Discharge Disposition: home with home health when medically ready for hospital discharge. Consult Recommendations: No other consults recommended at this time. Equipment needs: Patient has all necessary equipment Physical Therapy Goals: goals below all met 02/10 ?? 1. Pt. to demonstrate knowledge of safety limitations and precautions and will appropriately request assistance for functional activities and to mobilize. 2. Pt. to demonstrate understanding of appropriate LE exercises. 3. Pt. to perform bed mobility independently. 4. Pt. to perform sit to stand transfers independently using least restrictive device as needed.. 5. Pt. to ambulate 150 feet independently using a device as needed. 6. Pt. to ambulate up/down 4 step/stairs using one rail with supervision. 7. Family or caregiver to demonstrate understanding of therapeutic interventions to support the care of the patient. Plan: Therapy Frequency: No further inpatient PT indicated. Patient agrees with plan as stated. Time IN / OUT: 3:15-3:45 Total Evaluation Minutes, Physical Therapy: 30(functional mobility, gait) TORIE HAGAN, PT Pager: [phone] Physical Therapy Inpatient Rehabilitation Department * Plan of Care - Ethel Darling RN - 02/10/2019 12:47 PM EDT Problem: Skin Integrity Impairment, Risk/Actual (Adult) Goal: Identify Related Risk Factors and Signs and Symptoms Related risk factors and signs and symptoms are identified upon initiation of Human Response Clinical Practice Guideline (CPG) Outcome: Ongoing (Interventions Implemented as Appropriate) OUTCOME EVALUATION NOTE: OUTCOME SUMMARY: Patient a/o x4, able to make needs known. VSS, afebrile. IV abx therapy continued as ordered, all other meds given as ordered- see MAR. OT worked with patient, ambulating around unit and showering. Patient able to wean off of O2 and maintain sats in high 90s during activity. Will continue to monitor and communicate with the team any change of status or need that arises. PLAN MOVING FORWARD: Monitor labs/VS IV ABX therapy Safe DC planning INDIVIDUALIZED FALL PREVENTION INTERVENTIONS: Patient-specific fall risk factors per assessment: [current deficits]: Generalized weakness Assistance [level of assistance required for transfers and ambulation]: IND Supervision [direct monitoring required during toileting and ADLs]: IND Surveillance [continuous indirect monitoring]: Call light within reach, purposeful rounding, room near unit station Patient-specific fall prevention interventions for sensory deficits provided, if applicable: yes CPG GOAL OUTCOME EVALUATION: Problem: Patient Care Overview Goal: Plan of Care Review Outcome: Ongoing (Interventions Implemented as Appropriate) 02/10/19 0236 02/10/19 0855 Coping/Psychosocial Plan Of Care Reviewed With -- patient Plan of Care Review Progress improving -- Goal: Fall Prevention-Safe Patient Handling Outcome: Ongoing (Interventions Implemented as Appropriate) 02/09/19 0242 02/10/19 0730 02/10/19 0855 Daily Care Interventions Self-Care Promotion independence encouraged;BADL personal objects within reach;BADL personal routines maintained -- -- Stephens Fall Risk History of Falling -- -- 0 Secondary Diagnosis -- -- 15 Ambulatory Aids -- -- 0 Intravenous Therapy/Heparin/Saline Lock -- -- 20 Gait/Transferring -- -- 10 Mental Status -- -- 0 Score -- -- 45 OTHER Stephens Fall Risk -- -- High Restraint Interventions Safety Promotion/Fall Prevention -- -- -- Positioning Body Position -- -- -- Activity Activity Type -- -- -- Activity Assistance Provided -- -- -- Assistive Device Utilized -- none -- 02/10/19 1018 Daily Care Interventions Self-Care Promotion -- Stephens Fall Risk History of Falling -- Secondary Diagnosis -- Ambulatory Aids -- Intravenous Therapy/Heparin/Saline Lock -- Gait/Transferring -- Mental Status -- Score -- OTHER Stephens Fall Risk -- Restraint Interventions Safety Promotion/Fall Prevention safety round/check completed Positioning Body Position independent Activity Activity Type ambulated to bathroom Activity Assistance Provided assistance, stand-by Assistive Device Utilized -- Goal: Infection Control Outcome: Ongoing (Interventions Implemented as Appropriate) 02/10/19 0855 02/10/19 0858 Safety Interventions Isolation Precautions -- standard precautions maintained Infection Prevention -- single patient room provided Coping Strategies Supportive Measures active listening utilized;self-care encouraged;verbalization of feelings encouraged -- Goal: Discharge Needs Assessment Outcome: Ongoing (Interventions Implemented as Appropriate) 02/07/19 1754 02/09/19 0242 Discharge Needs Assessment Concerns To Be Addressed -- no discharge needs identified Readmission Within The Last 30 Days -- previous discharge plan unsuccessful Equipment Needed After Discharge -- other (see comments) (TBD) Current Discharge Risk -- dependent with mobility/activities of daily living Discharge Disposition still a patient -- Goal: Interdisciplinary Rounds/Family Conf Outcome: Ongoing (Interventions Implemented as Appropriate) 02/10/19 0236 Interdisciplinary Rounds/Family Conf Participants nursing;patient;physician * Plan of Care - Santosh Nur OTA - 02/10/2019 10:28 AM EDT Occupational Therapy Treatment Note Treatment Number OT: 2 Patient Dx: Ethel Bolden is a 68 y.o. male with HCV s/p Harvoni, DMII, HTN, and donorkidney transplant 09/16/15 who was recently discharged from the hospital after being admitted with NSTEMI s/p PCI and new aflutter complicated by RVR, who was re-admitted on 02/06/2019 24 hours after being discharged) with fever, and hypoxic respiratory failure, found to have sepsis Precautions/Special Considerations: fall, soap and water contact precautions, no BP L UE (fistula),[place] Catheter Interval History: per MD note: Another loose BM yesterday --> C diff sent, patient on contact precautions S: I've done all this yesterday, why do it again. RE participate with therapy O: Patient seen for therapeutic activities and demonstrated the following: ?? Self-care: ?? Pt brushed his teeth and combed his hair while standing at the sink ?? Pt completed full shower activity with set up, extended time and shower chair ?? Pt donned socks, pants and hospital jessika with set up / extended time when he got out of the shower ?? Functional Mobility: ?? Pt ambulating throughout his room and bathroom with no AD. Pt had no LOB during this session ?? Pt ambulated from room to kitchen to grab a drink with no LOB ?? Cognition: ?? Behavior / Mood: alert and cooperative ?? Alert and oriented to: person, place, time and situation ?? Follows commands: 1 step and 100% of the time ?? Attention: WFL ?? Safety awareness: mild impairment ?? Vision:WFL, wears corrective glasses ?? Endurance:Good ?? Vitals: stable throughout session. Pt SpO2 was 92 with activity on RA ?? Strength/ROM:WFL Pain: pt denies any pain Education: Pt/family/caregiver education ongoing regarding: ADL, Functional Mobility and Activity pacing/Energy conservation. Staff Communication: Patient status, treatment, and mobility recommendations discussed with nursing/other staff. ASSESSMENT: Good session this morning, pt eager to participate with therapy. Pt demonstrated good self awareness, activity tolerance and balance. Pt was able to complete multiple self care activitiestogether with 1 seated rest break. Pt Pt will benefit from ongoing therapeutic interventions to achieve pt's and therapy goals Anticipated Discharge Disposition: home with assist, home with home health Equipment Recommendations: none anticipated ?? Daily schedule / Staff Recommendations: Ambulate as tolerated with CGA. Encourage participation in ADL's by providing set up A on tray table and physical assist only as needed. Occupational Therapy Goals: To be achieved within 1 week, by 02/16/19: 1. Patient and his will demonstrate understanding of sepsis education and support services ([facility]).Pt MET 2. Patient will be modified independent for LB dressing.MET 3. Patient will be modified independent for toileting. MET 4. Patient will be supervision for simple snack/beverage preparation Therapy Frequency: 2-3 times/wk Total Evaluation Minutes, Occupational Therapy: 45(MA) Pager: [phone] СЕРГЕЙ Schmidt Occupational Therapy Rehabilitation Department * Med Student Progress Note - Destinee Ochoa - 02/10/2019 8:44 AM EDT Med Student Progress Note ?? ID: Ethel Bolden is a 68 y.o. male with a history of Hep C treated with Harvoni, DM2, HTN, kidney transplant 2016 with ureteral reconstruction, who was discharged on 02/05 after an NSTEMI and hypoxic resp failure, who presents now with a fever. ?? Interval Events: - C diff neg, patient off contact precautions - Transferred to floor bed Subjective: This morning, Mr. Bolden states he is feeling a little better. Still endorses fatigue and says breathing feels okay. Said the room was set to 60 degrees overnight so he was cold, but did feel like chills were from his illness. He denies chest pain and abdominal pain. Still having occasional loose stools. Vitals: Last value Range last 24 hrs Temperature Temp: 36.9 ??C (98.4 ??F) Temp: [36.7 ??C (98.1 ??F)-37.1 ??C (98.8 ??F)] Heart Rate Heart Rate: (!) 48 Heart Rate: [48-86] Blood Pressure BP: 145/70 BP: (121-152)/(52-92) Respiratory Rate Resp: 20 Resp: [18-28] SpO2 SpO2: 97 % SpO2: [92 %-97 %] Art BP BP (Arterial Line): -- Intake/Output Summary (Last 24 hours) at 02/10/2019 0844 Last data filed at 02/10/2019 0547 Gross per 24 hour Intake 395 ml Output 1550 ml Net -1155 ml ?? PE: General: Lying down, talking on phone prior to my arrival Cardiac: Irregular rate and rhythm, no m/r/g Lungs: CTAB. Maybe mild crackles scattered throughout but much improved Abdomen:??+ BS, no tenderness to palpation Extremities: Trace edema L leg > R ?? Pertinent Labs: WBC: 9.0 <-- 9.1 <-- 12.2 <-- 14.2 <-- 19.7 <-- 14.0 <-- 9.8 (on discharge 02/05) Hgb: 13.5 <-- 13.3 <-- 13.2 <-- 15.8 Cr: 1.31 <-- 1.58 <-- 1.7 <-- 1.82 <-- 1.68 <-- 1.43 (on discharge 02/05) Na: 133 K: 3.8 P: 2.1 Blood culture [facility] [place] 02/06 - no growth 3 days Urine culture: 1000 - 9000 CFU enterococcus, pansensitive Relevant Imaging and Procedures: Echocardiogram Transthoracic 02/07/2019 1. Limited TTE today 2. There is [...] and segmental wall motion abnomalities have improved. CT Abdomen and Pelvis wo Contrast 02/07/2019 1. Slightly edematous transplant kidney within the left lower quadrant with increased perinephric stranding. Correlate with urinalysis for signs of infection. 2. New small bilateral pleural effusions. 3. Cholelithiasis without cholecystitis. US Renal Transplant 02/07/2019 The LEFT renal transplant is slightly enlarged compared to prior study. Renal vein and artery are patent with normal waveforms. The resistive indices are slightly increased at 0.62-0.82 relative to the prior study. No hydronephrosis or perinephric collections CXR 02/06/2019 Patchy opacities are seen in the bilateral lungs. The heart is enlarged. Atelectasis is present at the lower lobes bilaterally. No pneumothorax. The osseous structures are unchanged. Again seen is an 11 mm hypodensity in the right proximal humerus which has a benign appearance. ?? Assessment and Plan: Ethel Bolden is a 68 y.o. male with a history of Hep C treated with Harvoni, DM2, HTN, kidney transplant 2016 with ureteral reconstruction, who was discharged on 02/05 after an NSTEMI and hypoxic resp failure, with enterococcus bacteremia from a urinary source. Continues to have improvement from both a subjective and objective standpoint (no fevers past 24 hours, WBC is normal, creatinine nearing baseline). Plan to discuss midline placement with case management to see ifviable option as an outpatient to receive ampicillin. Will also follow-up with Dr. Eagle regarding management of MMF. Patient may benefit from acute rehab; will discuss with PT/OT. ?? # Enterococcus Bacteremia 2/ urinary course - Continue ampicillin 2g Q6H (end date Feb 22) - Acetaminophen 650mg Q8H PRN for pain, fever # Pulm Edema # Hypoxic resp failure - Continues to require less oxygen each day. Will give another dose of lasixthis am; responded to the 20mg IV, so will give 40mg PO as we attempt to transition him to a regimen he could use in the outpatient setting - Titrate down high flow oxygen as needed - Lasix 40mg PO this morning # Fecal Incontinence - resolving, continue to monitor ?? # CKD s/p kidney transplant 2018 # RAY - Creatinine trending down, appears to be improving in the setting of diuresis - Continue tacrolimus 2mg AM, 1mg PM - Hold MMF in setting of infection-will f/u with Dr. Eagle - Continue calcitriol 0.5mcg daily - Hold home vit C - Restart home potassium phosphate 1000mg BID - Daily weights - Avoid nephrotoxic drugs - We appreciate Dr. Eagle's input # NSTEMI # Aflutter # HFrEF - EF improved on repeat TTE, with EF of 40-56%. - Continue aspirin 81mg - Continue atorvastatin 40mg - Continue apixaban 5mg BID - Continue clopidogrel # DM2 - Glucose adequately controlled - Hold home glipizide - Continue sliding scale insulin ?? # Hypothyroidism - Continue Levothyroxine 137 mcg QD PO ?? # Urinary Retention - Continue tamsulosin 0.4mg QD PO ?? # Dispo - May benefit from acute rehab; will f/u with PT/OT. Tentative d/c pending OPAT orders 02/11 or 02/12 Destinee eLggett M4 Pager: [phone] * Plan of Care - Josefina English RN - 02/10/2019 2:50 AM EDT Problem: Patient Care Overview Goal: Plan of Care Review Outcome: Ongoing (Interventions Implemented as Appropriate) 02/10/19 0236 Coping/Psychosocial Plan Of Care Reviewed With patient Plan of Care Review Progress improving OUTCOME EVALUATION NOTE: OUTCOME SUMMARY: Pt transferred to [facility] room 265 at beginning of shift. Pt A&Ox4. HR sakina to mid 40s at timeswhen sleeping. Team made aware. Other VSS on 2L NC. No c/o pain or SOB. IV abx administered as ordered w/o issue. Appears to be resting comfortably in between care. Able to make needs known. Will CTMand notify team of any acute changes. PLAN MOVING FORWARD: IV abx Wean O2 as tolerated Encourage independence PT/OT D/C planning INDIVIDUALIZED FALL PREVENTION INTERVENTIONS: Patient-specific fall risk factors per assessment: [current deficits]: Generalized weakness, tubing, unfamiliar environment Assistance [level of assistance required for transfers and ambulation]: SBA Supervision [direct monitoring required during toileting and ADLs]: Eyes on Surveillance [continuous indirect monitoring]: Purposeful rounding, room near nurse's station, calllight within reach, masimo Patient-specific fall prevention interventions for sensory deficits provided, if applicable: [X] N/A CPG GOAL OUTCOME EVALUATION: Goal: Fall Prevention-Safe Patient Handling Outcome: Ongoing (Interventions Implemented as Appropriate) 02/09/19 0242 02/09/19 19402/09/19 2156 Daily Care Interventions Self-Care Promotion independence encouraged;BADL personal objects within reach;BADL personal routines maintained -- -- Stephens Fall Risk History of Falling -- -- 0 Secondary Diagnosis -- -- 15 Ambulatory Aids -- -- 0 Intravenous Therapy/Heparin/Saline Lock -- -- 20 Gait/Transferring -- -- 10 Mental Status -- -- 0 Score -- -- 45 OTHER Stephens Fall Risk -- -- High Restraint Interventions Safety Promotion/Fall Prevention -- -- -- Positioning Body Position -- -- -- Activity Activity Type -- -- activity adjusted per tolerance Activity Assistance Provided -- -- assistance, stand-by Assistive Device Utilized -- none -- 02/10/19 0200 Daily Care Interventions Self-Care Promotion -- Stephens Fall Risk History of Falling -- Secondary Diagnosis -- Ambulatory Aids -- Intravenous Therapy/Heparin/Saline Lock -- Gait/Transferring -- Mental Status -- Score -- OTHER Stephens Fall Risk -- Restraint Interventions Safety Promotion/Fall Prevention safety round/check completed Positioning Body Position independent Activity Activity Type -- Activity Assistance Provided -- Assistive Device Utilized -- Goal: Infection Control Outcome: Ongoing (Interventions Implemented as Appropriate) 02/09/196 02/10/19 0200 Safety Interventions Isolation Precautions -- standard precautions maintained Infection Prevention -- rest/sleep promoted Coping Strategies Supportive Measures active listening utilized;decision-making supported;positive reinforcement provided;relaxation techniques promoted;self-care encouraged;verbalization of feelings encouraged -- Goal: Interdisciplinary Rounds/Family Conf Outcome: Ongoing (Interventions Implemented as Appropriate) 02/10/19 0236 Interdisciplinary Rounds/Family Conf Participants nursing;patient;physician * Med Student Progress Note - Destinee Ochoa - 02/09/2019 2:02 PM EDT Med Student Progress Note ?? ID: Ethel Bolden is a 68 y.o. male with a history of Hep C treated with Harvoni, DM2, HTN, kidney transplant 2016 with ureteral reconstruction, who was discharged on 02/05 after an NSTEMI and hypoxic resp failure, who presents now with a fever. ?? Interval Events: - Another loose BM yesterday --> C diff sent, patient on contact precautions Subjective: This morning, Mr. Bolden states he is feeling a little better each day. He says last night he did not have chills which was an improvement for him. He denies chest pain, shortness of breath, or abdominal pain. Had a more formed bowel movement earlier today vs. the several loose stools he has been having previous. Vitals: Last value Range last 24 hrs Temperature Temp: 37.1 ??C (98.8 ??F) Temp: [36.8 ??C (98.2 ??F)-38.4 ??C (101.1 ??F)] Heart Rate Heart Rate: 67 Heart Rate: [58-88] Blood Pressure BP: 133/59 BP: (126-156)/(50-91) Respiratory Rate Resp: 25 Resp: [16-38] SpO2 SpO2: 96 % SpO2: [90 %-97 %] Art BP BP (Arterial Line): -- Intake/Output Summary (Last 24 hours) at 02/09/2019 1035 Last data filed at 02/09/2019 0400 Gross per 24 hour Intake 2094 ml Output 1950 ml Net 144 ml ?? PE: General: Sitting up eating breakfast, appears a little diaphoretic Cardiac: Distant heart sounds, irregular rate and rhythm, no m/r/g Lungs: Some crackles and wheezes throughout, improved from day prior Abdomen:??+ BS, no tenderness to palpation Extremities: Trace edema to knees b/l ?? Pertinent Labs: WBC: 9.1 <-- 12.2 <-- 14.2 <-- 19.7 <-- 14.0 <-- 9.8 (on discharge 02/05) Hgb: 13.3 <-- 13.2 <-- 15.8 Cr: 1.58 <-- 1.7 <-- 1.82 <-- 1.68 <-- 1.43 (on discharge 02/05) Na: 133 <-- 132 <--133 K: 3.6 Blood culture [facility] [place] 02/06 - no growth 2 day Urine culture: 1000 - 9000 CFU enterococcus C. Diff = negative Relevant Imaging and Procedures: Echocardiogram Transthoracic 02/07/2019 1. Limited TTE today 2. There is [...] and segmental wall motion abnomalities have improved. CT Abdomen and Pelvis wo Contrast 02/07/2019 1. Slightly edematous transplant kidney within the left lower quadrant with increased perinephric stranding. Correlate with urinalysis for signs of infection. 2. New small bilateral pleural effusions. 3. Cholelithiasis without cholecystitis. US Renal Transplant 02/07/2019 The LEFT renal transplant is slightly enlarged compared to prior study. Renal vein and artery are patent with normal waveforms. The resistive indices are slightly increased at 0.62-0.82 relative to the prior study. No hydronephrosis or perinephric collections CXR 02/06/2019 Patchy opacities are seen in the bilateral lungs. The heart is enlarged. Atelectasis is present at the lower lobes bilaterally. No pneumothorax. The osseous structures are unchanged. Again seen is an 11 mm hypodensity in the right proximal humerus which has a benign appearance. ?? Assessment and Plan: Ethel Bolden is a 68 y.o. male with a history of Hep C treated with Harvoni, DM2, HTN, kidney transplant 2016 with ureteral reconstruction, who was discharged on 02/05 after an NSTEMI and hypoxic resp failure, with enterococcus bacteremia from a urinary source. Continues to have improvement, with decreased frequency of fevers and down-trending white count. Urine cultures here have resulted out as enterococcus, which is consistent with the blood cultures grown at the outside hospital. Infectious disease recommends a 14-day course of ampicillin, which we will begin whileinpatient. Patient will require PICC or midline to receive abx while outpatient; spoke with Dr. Brigitte patiño who felt that midline was the safer option. Will pursue this issue further as we get closer to d/c. ?? # Enterococcus Bacteremia 2/2 urinary course - Begin ampicillin 2g Q6H (end date Feb 22) - Acetaminophen 650mg Q8H PRN for pain, fever # Pulm Edema # Hypoxic resp failure - Continues to require less oxygen each day. Will give another dose of lasixthis am; will try 20mg IV to see if adequate diuresis at this lower dose. - Titrate down high flow oxygen as needed - Lasix 20mg IV this morning - K = 3.6, will give 20meq KCl in setting of diuresis and recent cardiac insult # Fecal Incontinence - C diff returned negative; likely due his bacteremia or as a side effect of his abx regimen. Patient said had a more solid bowel movement earlier, so likely improving on its own. - D/C contact precautions ?? # CKD s/p kidney transplant 2018 # RAY - Creatinine trending down, appears to be improving in the setting of diuresis - Continue tacrolimus 2mg AM, 1mg PM - Hold MMF in setting of infection - Continue calcitriol 0.5mcg daily - Hold home vit C - Hold potassium phosphate - Daily weights - Avoid nephrotoxic drugs - We appreciate Dr. Eagle's input # NSTEMI # Aflutter # HFrEF - EF improved on repeat TTE, with EF of 40-56%. - Continue aspirin 81mg - Continue atorvastatin 40mg - Continue apixaban 5mg BID - Continue clopidogrel # DM2 - Glucose adequately controlled - Hold home glipizide - Continue sliding scale insulin ?? # Hypothyroidism - Continue Levothyroxine 137 mcg QD PO ?? # Urinary Retention - Continue tamsulosin 0.4mg QD PO ?? # Dispo - Will require outpatient antibiotic therapy; will also need to assess if okay functional status athome, as has insisted that he is too much for her ?? Destinee Leggett M4 Pager: [phone] * Plan of Care - Torie Hagan, PT - 02/09/2019 12:25 PM EDT Physical Therapy Evaluation Patient profile: Ethel Bolden is a 68 y.o. right-handed male with h/o HCV s/p Harvoni, DMII, HTN, and donor kidney transplant 09/16/15 who was recently discharged from the hospital afterbeing admitted with NSTEMI s/p PCI and new aflutter complicated by RVR admitted on 02/06/[address] Danny Hicks MD with fever, leukocytosis, and hypotension. Diagnosed with sepsis with enterococcus bacteremia and likely donor transplant pyelonephritis. Patient with the following active problems: Past Medical History: Diagnosis Date ??? Back pain ??? Colon polyp ??? CVA (cerebral vascular accident) Per report but no deficits ??? ESRD (end stage renal disease) ??? GERD (gastroesophageal reflux disease) ??? HTN (hypertension) ??? Microhematuria ??? Type 2 diabetes mellitus R TKA Past Surgical History: Procedure Laterality Date ??? PRO ANASTOMOSIS, AV, ANY SITE Left 05/09/2015 AV FISTULA CREATION, DIRECT HEMODIALYSIS, ANY SITE, EG ASHWINI FISTULA UPPER EXTREMITY performed by Que Amaro MD at [facility] OR ??? PRO CYSTOURETHROSCOPY, URETER CATHETER Left 06/17/2018 CYSTO, RETROGRADE, URETEROPYELOGRAPHY (WRVU 2.37) [facility] ??? PRO REIMPLANT URETER, SINGLE URETER Left 05/20/2016 @URETERONEOCYSTOSTOMY ANASTOMOSIS OF SINGLE URETER TO BLADDER performed by Santosh Arredondo MD at [facility] OR ??? PRO REIMPLANT URETER, SINGLE URETER N/A 05/20/2016 @URETERONEOCYSTOSTOMY ANASTOMOSIS OF SINGLE URETER TO BLADDER performed by Que Amaro MD at [facility] OR ??? PRO TOTAL KNEE ARTHROPLASTY Right 11/25/2017 TOTAL KNEE ARTHROPLASTY (WRVU 20.72) performed by Breezy Dale MD at [facility] OR ??? PRO TRANSPLANT, PREP CADAVER RENAL GRAFT N/A 09/16/2015 @PREPARATION CADAVERIC RENAL ALLOGRAFT performed by Franko Larkin MD at [facility] OR ??? PRO TRANSPLANTATION OF KIDNEY N/A 09/16/2015 @KIDNEY TRANSPLANT, WITHOUT RECIPIENT NEPHRECTOMY performed by Franko Larkin MD at [facility] OR ??? US RENAL TRANSPLANT LEFT Left 01/31/2019 US Renal Transplant Left 01/31/2019 [facility] ??? US RENAL TRANSPLANT LEFT Left 02/07/2019 US Renal Transplant Left 02/07/2019 [facility] Social History: lives with his in [place], [place] Home set-up: 2-level home but stays on 1st level Stairs: 4 with rail to enter Baseline Mobility: ambulated without device Equipment at home: walker, cane Fall history: no Precautions/Special Considerations: recent NSTEMI s/p PCI; fall risk; soap and water contact precautions Mobility and Positioning Recommendations: ?? Pt. to utilize hand hold assist for ambulation and transfers with nursing. ?? Please encourage up to chair for meal times as able. ?? Pt encouraged to ambulate frequently with staff, getting to the commode for toileting and walking in his room >/= 3 times daily as able. Subjective: Was I brought here in an ambulance??? Objective: Pt seen for evaluation today. Pain: Number Location At rest 0/10 With activity 0/10 Vital Signs: At Rest With Activity SpO2 (RA) 97% 100% BP (MAP) 152/96mmHg HR 50's-60's bpm with frequent arrhythmia 50's-60's bpm With frequent arrhytmia Mental Status: alert, oriented to person, place, and time Vision: WNL with glasses on Skin: mild edema in hands Musculoskeletal: ROM: R knee flexion at least 90 and trunk flexion adequate to reach toward feet Strength: grossly 4/5 Sensation: patient describes having intermittent short periods of numbness in R foot and hand but felt light touch throughout and denied difference to light touch between R and L feet and hands Bed Mobility: Supine to Sit: contact guard toward R side of bed with HOB elevated Sit to Supine: not assessed Transfers: Sit to Stand: contact guard of bilateral hand hold Stand to Sit: verbal cues and contact guard Bed to Chair: contact guard with bilateral UE support Gait: Distance: 10 feet (limited to room by soap and water contact precautions) Device used: bilateral hand hold assist Level of assist: Contact guard Gait mechanics: short step length Stairs: not assessed Balance: Sitting Static: good Sitting Dynamic: good Standing Static: fair Standing Dynamic / Gait: fair Education: patient and his have been educated on Safety , Role of therapy and Discharge planning and verbalize understanding. Listened at length to his telling story of admit and her concerns with feeling that he was discharged too early. Discussed DC options depending on patient's functional status once medically stable. Patient status, treatment, and mobility recommendations discussed with nursing. Assessment: Ethel Bolden was seen today for physical therapy evaluation. He presents with impairments in the following: strength (mild, generalized weakness), functional mobility, standing balance, and gait. Mobilized with contact guard in room, limited by contact precautions as c-diff resultsare pending. He is at high risk for infection due to immunosuppressed state sonce kidney transplant. May have desaturated slightly on room air versus inaccurate oximetry as he recovered quickly with deep breathing, but he continues to receive Lasix for diuresis. Bradycardic and with intermittent PVC's per telemetry. He may eventually benefit from a cardiac rehab program. The pt would benefit from skilled therapy services while in the hospital to maximize functional abilities. Discharge Recommendations: Based on the current findings, Anticipated Discharge Disposition: home with home health(versus inpatient rehab depending on progress) when medically ready for hospital discharge. Consult Recommendations: No other consults recommended at this time. Equipment needs: ongoing assessment for ambulation device needs Goals: To be achieved by 02/14/19: 1. Pt. to demonstrate knowledge of safety limitations and precautions and will appropriately request assistance for functional activities and to mobilize. 2. Pt. to demonstrate understanding of appropriate LE exercises. 3. Pt. to perform bed mobility independently. 4. Pt. to perform sit to stand transfers independently using least restrictive device as needed.. 5. Pt. to ambulate 150 feet independently using a device as needed. 6. Pt. to ambulate up/down 4 step/stairs using one rail with supervision. 7. Family or caregiver to demonstrate understanding of therapeutic interventions to support the care of the patient. Plan: Therapy Frequency: 2-4 times/wk for therapy including balance training, bed mobility training, gait training, home exercise program, patient/family education, stair training, strengthening and transfer training. Patient/family understand and agree with plan as stated above. 2017 PT Evaluation Code Rationale: ?? Diagnosis & Pertinent Co-Morbidities, personal factors, and present illness affecting Plan of Care: (see above); Additional personal factors or co- morbidities that impact plan: ?? Total # of Factors: 0 1-2 3+ x ?? Examination of body system impairments, functional limitations and behaviors, and/or participation restrictions. Addressing 1-2 elements Addressing 3 + elements x Addressing 4 + elements ?? Clinical presentation: See assessment above. Stable/Uncomplicated Evolving/Fluctuating Symptoms Unstable/Unpredictable x ?? Clinical decision making of moderate complexity based on pt's functional performance as outlinedin this evaluation. Time IN / OUT: 11:20-12:25 Total Evaluation Minutes, Physical Therapy: 65(eval; pt/family ed/discussion) TORIE HAGAN, PT Pager: [phone] Physical Therapy Inpatient Rehabilitation Department * Plan of Care - Gayle Mccrary, OT - 02/09/2019 12:20 PM EDT Occupational Therapy Evaluation Patient profile: Ethel Bolden is a 68 y.o. male with HCV s/p Harvoni, DMII, HTN, and donor kidney transplant 09/16/15 who was recently discharged from the hospital after being admitted with NSTEMI s/p PCI and new aflutter complicated by RVR, who was re-admitted on 02/06/2019 24 hours after being discharged) with fever, and hypoxic respiratory failure, found to have sepsis. Past Medical History: Diagnosis Date ??? Back [...] EXTREMITY performed by Que Amaro MD at [facility] OR ??? PRO CYSTOURETHROSCOPY, URETER CATHETER Left 06/17/2018 CYSTO, RETROGRADE, URETEROPYELOGRAPHY (WRVU 2.37) performed by Edinson Grider III, MD at [facility] ??? PRO REIMPLANT URETER, SINGLE URETER Left 05/20/2016 @URETERONEOCYSTOSTOMY ANASTOMOSIS OF SINGLE URETER TO BLADDER performed by Santosh Arredondo MD at [facility] OR ??? PRO REIMPLANT URETER, SINGLE URETER N/A 05/20/2016 @URETERONEOCYSTOSTOMY ANASTOMOSIS OF SINGLE URETER TO BLADDER performed by Que Amaro MD at [facility] OR ??? PRO TOTAL KNEE ARTHROPLASTY Right 11/25/2017 TOTAL KNEE ARTHROPLASTY (WRVU 20.72) performed by Breezy Dale MD at [facility] OR ??? PRO TRANSPLANT, PREP CADAVER RENAL GRAFT N/A 09/16/2015 @PREPARATION CADAVERIC RENAL ALLOGRAFT performed by Franko Larkin MD at [facility] OR ??? PRO TRANSPLANTATION OF KIDNEY N/A 09/16/2015 @KIDNEY TRANSPLANT, WITHOUT RECIPIENT NEPHRECTOMY performed by Franko Larkin MD at [facility] OR ??? US RENAL TRANSPLANT LEFT Left 01/31/2019 US Renal Transplant Left 01/31/2019 [facility]TR[facility] ??? US RENAL TRANSPLANT LEFT Left 02/07/2019 US Renal Transplant Left 02/07/2019 [facility] Social History: Patient lives with his Mara in a home in with 4 steps to enter, stays on the 1st level, has [employer] shower w/ a seat and grab bars DME: cane, walker, shower seat Baseline ADL/Mobility: Prior to recent admissions, pt was independent w/ ADL's and IADL's, ambulating without a device. His sometimes helps w/ socks and shoes 2/2 h/o R knee replacement. Pt enjoys helping with outside activities including mowing the lawn. Pt's expressed concerns after recent d/c with pt waking up sick and unable to get up without significant help. Precautions/Special Considerations: fall, soap and water contact precautions, no BP L UE (fistula),[place] Catheter Subjective: I can go back to push mowing, right? I have been having a hard time seeing the screen to read. (on his phone, helped to increase font size with improvement) Objective: Seen today for OT evaluation. Pt's was present. Cognitive Status/Behavior: ?? Behavior / Mood: alert and cooperative ?? Alert and oriented to: person, place and situation, knew February and close to date (off by 2-3 days) ?? Follows commands: 1 step, 100% of the time and requires increased time ?? Attention: WFL ?? Safety awareness: mild impairment-tends to minimize deficits, advocates for him ?? Aware of recent hospital events ?? Delirious during this episode of sepsis-discussed with pt and his monitoring how he is processing information and understanding; able to navigate his phone slower than usual (better once fontsize increased) Vision & Perception: ?? 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 possibly r/t tingling) LE limitations: R LE h/o TKA but grossly functional, able to bend to the floor to reach his feet (unable to draw feet toward him) Sensation: reports mild tingling in fingers and toes Activities of Daily Living: Self-feeding: setup Grooming: setup Dressing: LB dressing: with increased effort, able to reach his feet to don socks by bending to thefloor Bathing: not observed; anticipate seated w/ setup and min A for balance/standing portions Toileting: Transfer: CGA Hygiene: not observed, anticipate CGA Functional Mobility: Supine to sit: to R EOB, HOB elevated, supervision Sit to stand: CGA Ambulation: pt ambulated ~15' to the door/back to the chair w/ CGA and assist for lines Stand to sit: CGA Left sitting upright in the chair Balance: Sitting balance: supervision Standing balance:CGA Vitals: At Rest With Activity SpO2 91% on 2 L 95% on RA (RN aware) Heart Rate 57-66 70's Blood Pressure SBP: 150's SBP; 152 Pain: 0/10 (reports high pain tolerance, did not c/o pain during session) Skin: not assessed ( reports less edematous) Education: Patient and his have been educated on Role of occupational therapy/rehabilitation, Transfers, Assistive device/technique, ADL, Positioning, Safety, Functional Mobility, Activity pacing/Energy conservation, Balance, Recommendations and Discharge planning and verbalize understanding but may benefit from reinforcement. Patient status, treatment, and mobility recommendations discussed with nursing. Assessment: Pt was seen for an occupational therapy evaluation. Ethel Bolden presents with thefollowing performance skill deficits and client factors: decreased activity tolerance intermittently requiring oxygen, sepsis with recent delirium, mildly impaired balance, and compromised mobility status. Pt was able to mobilize in his room with contact guard and participate in some basic ADL's, though is limited by fatigue and mildly impaired balance/endurance compared to his baseline. Pt's expressed concerns regarding his recent discharge home when he woke up and needed more assistance than she was able to provide (because of his altered mental status and acute illness). Pt's is p referring he d/c to rehab prior to home. Discussed with patient and his that this will be an ongoing assessment of his needs and both of their comfort in managing them. Pt will benefit from further inpatient OT interventions to address performance deficits and maximize participation and independence with occupations of daily living. Equipment needs at discharge: none anticipated Anticipated Discharge Disposition: home with assist, home with home health, inpatient rehabilitation facility( concerned re: d/c and is hoping for rehab at d/c) Other Recommendations: ?? Ambulate as tolerated with CGA. ?? Encourage participation in ADL's by providing set up A on tray table and physical assist only asneeded. Other Recommendations: Social Work consult- appears distressed (? PTSD) related to pt's recent hospital admission-may benefit from further support Goals: To be achieved within 1 week, by 02/16/19: 1. Patient and his will demonstrate understanding of sepsis education and support services ([facility]). 2. Patient will be modified independent for LB dressing. 3. Patient will be modified independent for toileting. 4. Patient will be supervision for simple snack/beverage preparation Plan: OT: Therapy Frequency: 2-3 times/wk Planned OT interventions: Role of occupational therapy/rehabilitation, Transfers, Assistive device/technique, Adaptive equipment training, ADL, Exercise, Positioning, Safety, Functional Mobility, Activity pacing/Energy conservation, Home Management, Balance, Recommendations, Family training and Discharge planning. Total Evaluation Minutes, Occupational Therapy: 90(60 mins direct care/evaluation, 20 mins indirect) 2017 OT Evaluation Code Rationale: ?? Diagnosis & Pertinent Co-Morbidities affecting Plan of Care: see PMHx ?? Occupational Profile & Client History: Brief Expanded Extensive x ?? Assessment of Occupational Performance: 1-3 performance deficits 3-5 performance deficits x 5 + performance deficits ?? Clinical Decision Making: Low Moderate High x Clinical decision making of moderate complexity using standardized patient assessment instrument and measurable assessment of functional outcome. Pager: [phone] GAYLE MCCRARY OT 02/09/2019 Occupational Therapy Rehabilitation Department * Plan of Care - Joanne Dawkins RN - 02/09/2019 2:58 AM EDT Problem: Patient Care Overview Goal: Plan of Care Review Outcome: Ongoing (Interventions Implemented as Appropriate) 02/08/19 1850 02/08/191999 Coping/Psychosocial Plan Of Care Reviewed With -- patient Plan of Care Review Progress improving -- OUTCOME EVALUATION NOTE: OUTCOME SUMMARY: Pt has been sleeping between care. No acute events this shift. Pt denied pain. Continues to [id number] via NC to maintain O2 sats >92%. Tmax 37.9, comfort promoted. IV ABX infusing per order, see MAR for details. Cardiac monitoring maintained. Condom cath in place per pt request, changed per this RN. No BMs overnight. Pt stated he is feeling like he is making a turn for the better. PLAN MOVING FORWARD: Transfer to floor when bed available Continue cardiac monitoring Continue ABX regimen Encourage independence D/c planning INDIVIDUALIZED FALL PREVENTION INTERVENTIONS: Patient-specific fall risk factors per assessment: [current deficits]: Generalized weakness, tubes/IV, hospital environment Assistance [level of assistance required for transfers and ambulation]: SBA Supervision [direct monitoring required during toileting and ADLs]: Eyes on Surveillance [continuous indirect monitoring]: Telemetry, purposeful rounding CPG GOAL OUTCOME EVALUATION: Goal: Fall Prevention-Safe Patient Handling Outcome: Ongoing (Interventions Implemented as Appropriate) 02/08/19199902/09/19 0000 02/09/19 0242 Daily Care Interventions Self-Care Promotion -- -- independence encouraged;BADL personal objects within reach;BADL personal routines maintained Stephens Fall Risk History of Falling 0 -- -- Secondary Diagnosis 15 -- -- Ambulatory Aids 0 -- -- Intravenous Therapy/Heparin/Saline Lock 20 -- -- Gait/Transferring 10 -- -- Mental Status 0 -- -- Score 45 -- -- OTHER Stephens Fall Risk High -- -- Restraint Interventions Safety Promotion/Fall Prevention -- safety round/check completed -- Positioning Body Position -- independent -- Activity Activity Type activity adjusted per tolerance -- -- Activity Assistance Provided assistance, stand-by -- -- Goal: Infection Control Outcome: Ongoing (Interventions Implemented as Appropriate) 02/08/19199902/09/19 0000 Safety Interventions Isolation Precautions -- contact precautions maintained Infection Prevention environmental surveillance performed;rest/sleep promoted -- Coping Strategies Supportive Measures active listening utilized;positive reinforcement provided;relaxation techniquespromoted;verbalization of feelings encouraged -- Goal: Discharge Needs Assessment 02/07/19175302/09/19 024 Discharge Needs Assessment Concerns To Be Addressed -- no discharge needs identified Readmission Within The Last 30 Days -- previous discharge plan unsuccessful Equipment Needed After Discharge -- other (see comments) (TBD) Current Discharge Risk -- dependent with mobility/activities of daily living Discharge Disposition still a patient -- Goal: Interdisciplinary Rounds/Family Conf Outcome: Ongoing (Interventions Implemented as Appropriate) 02/09/19 0242 Interdisciplinary Rounds/Family Conf Participants nursing;patient * Plan of Care - Guy Monahan RN - 02/08/2019 6:54 PM EDT Problem: Patient Care Overview Goal: Plan of Care Review Outcome: Ongoing (Interventions Implemented as Appropriate) 02/08/19 1850 Coping/Psychosocial Plan Of Care Reviewed With patient;spouse Plan of Care Review Progress improving OUTCOME EVALUATION NOTE: OUTCOME SUMMARY: Overall status improved. Weaned from HFNC to 3L/NC. C/o shortness of breath at beginning of shift resolved. Intermittently feeling sick with increase in temp and heart rate and cold chills. Resolved with rest and tylenol. Good intake. Downgraded to floor status. Waiting for a bed. PLAN MOVING FORWARD: Monitor respiratory status. Promote independence. Monitor for signs/symptoms of infection. * Med Student Progress Note - Destinee Ochoa - 02/08/2019 7:53 AM EDT Med Student Progress Note ?? ID: Ethel Bolden is a 68 y.o. male with a history of Hep C treated with Harvoni, DM2, HTN, kidney transplant 2016 with ureteral reconstruction, who was discharged on 02/05 after an NSTEMI and hypoxic resp failure, who presents now with a fever. ?? Interval Events: - OSH blood cultures grew enterococcus; ID consulted, abx switched to Zosyn and Vanc - K = 3.3, given KDur 40mg - Mg low, given MgO 400 BID x 4 doses Subjective: This morning, Mr. Bolden states he is feeling a little better. He states he feels like he is getting stronger, but still feels fatigued. He also endorses two episodes of fecal incontinence yesterday, which is abnormal for him, and chills. Otherwise denies chest pain, shortness of breath, or abdominal pain. Vitals: Last value Range last 24 hrs Temperature Temp: 37.1 ??C (98.8 ??F) Temp: [36.6 ??C (97.9 ??F)-39.4 ??C (102.9 ??F)] Heart Rate Heart Rate: 65 Heart Rate: [59-129] Blood Pressure BP: 136/52 BP: (112-159)/(40-82) Respiratory Rate Resp: 30 Resp: [22-37] SpO2 SpO2: 97 % SpO2: [89 %-100 %] Art BP BP (Arterial Line): -- Intake/Output Summary (Last 24 hours) at 02/08/2019 1019 Last data filed at 02/08/2019 0800 Gross per 24 hour Intake 2070 ml Output 1145 ml Net 925 ml ?? PE: General: Sitting up eating breakfast, appears a little disphoretic Cardiac: Distant heart sounds, regular rate and rhythm, no m/r/g Lungs:??Some wheezing throughout on expiration, with some crackles in lower lung pulliam Abdomen:??+ BS, no tenderness to palpation Extremities: Trace edema to knees b/l, R>L ?? Pertinent Labs: WBC: 12.2 <-- 14.2 <-- 19.7 <-- 14.0 <-- 9.8 (on discharge 02/05) Hgb: 13.2 <-- 15.8 Cr: 1.7 <-- 1.82 <-- 1.68 <-- 1.43 (on discharge 02/05) Na: 132 <--133 K: 3.3 CD4:CD8: 2.31 IgG = 884 Blood culture [facility] [place] 02/06 - no growth 1 day Urine culture pending Relevant Imaging and Procedures: Echocardiogram Transthoracic 02/07/2019 1. Limited TTE today 2. There is [...] and segmental wall motion abnomalities have improved. CT Abdomen and Pelvis wo Contrast 02/07/2019 1. Slightly edematous transplant kidney within the left lower quadrant with increased perinephric stranding. Correlate with urinalysis for signs of infection. 2. New small bilateral pleural effusions. 3. Cholelithiasis without cholecystitis. US Renal Transplant 02/07/2019 The LEFT renal transplant is slightly enlarged compared to prior study. Renal vein and artery are patent with normal waveforms. The resistive indices are slightly increased at 0.62-0.82 relative to the prior study. No hydronephrosis or perinephric collections CXR 02/06/2019 Patchy opacities are seen in the bilateral lungs. The heart is enlarged. Atelectasis is present at the lower lobes bilaterally. No pneumothorax. The osseous structures are unchanged. Again seen is an 11 mm hypodensity in the right proximal humerus which has a benign appearance. ?? Assessment and Plan: Ethel Bolden is a 68 y.o. male with a history of Hep C treated with Harvoni, DM2, HTN, kidney transplant 2016 with ureteral reconstruction, who was discharged on 02/05 after an NSTEMI and hypoxic resp failure, who presents now with a fever. Blood cultures from an outside hospital grew enterococcus. This is concerning for a urinary or abdominal source. ID was consulted, abxwere switched yesterday to vanc and Zosyn, and CT ab/pelvis was performed, only showing a slightly edematous transplant kidney with increased perinephric stranding. There is also a consideration thatthe cultures may be contaminated as our own blood cultures have no growth at 1 day, however, in sett ing of patient's appearance, he appears to be bacteremic and we should continue with broad spectrumabx. Spoke with Dr. Eagle and will continue to hold MMF in setting of acute infection; tacro dosing appropriate per CD4:CD8, and IgG supplementation not needed due to adequate IgG. Will follow-uptoday with outside hospital for culture sensitivities. ?? # Fever - Continue vancomycin - Continue pipercillin/tazobactam - Follow up blood and urine cultures/sensitivities from outside hospital - Acetaminophen 650mg Q8H PRN for pain, fever # Pulm Edema # Hypoxic resp failure - Decreased O2 requirement, lungs sound a bit clearer today, will continue with diuresis - Titrate down high flow oxygen as needed - Lasix 40mg IV this morning # Fecal Incontinence - Unclear etiology. Patient received IV Mag around time of incident, although IV version should not cause GI symptoms (vs PO). Could be side effect of antibiotics. Another thought includes infection, although GI bugs should be adequately treated with abx. Finally, in setting ofrecent abx use and hospitalization, C diff should be considered. As this has only happened twice, will continue to monitor. If persistent, will order C diff testing, and consider switching to PO vanco. ?? # CKD s/p kidney transplant 2018 # ARY - Creatinine trending down, appears to be improving in the setting of diuresis - Continue tacrolimus 2mg AM, 1mg PM - Hold MMF in setting of infection - Continue calcitriol 0.5mcg daily - Hold home vit C - Hold potassium phosphate - Daily weights - Avoid nephrotoxic drugs - We appreciate Dr. Eagle's input # NSTEMI # Aflutter # HFrEF - EF improved on repeat TTE, with EF of 40-56%. - Continue aspirin 81mg - Continue atorvastatin 40mg - Continue apixaban 5mg BID - Continue clopidogrel # DM2 - Glucose adequately controlled - Hold home glipizide - Continue sliding scale insulin ?? # Hypothyroidism - Continue Levothyroxine 137 mcg QD PO ?? # Urinary Retention - Continue tamsulosin 0.4mg QD PO ?? # Dispo - Transfer to floor today ?? Destinee Leggett M4 Pager: [phone] * Consult Note - Juancho Zuluaga, [facility] - 02/07/2019 7:45 PM EDT Clinical Pharmacist Note-Vancomycin Ethel Bolden [id number] Ethel Bolden is a 68 y.o. male is being monitored due to antibiotic therapy which includes intravenous vancomycin. Regimen: Vancomycin intermittent dosing by level Indication: treatment of enterococcal bacteremia Targeted Goal Range: 10 - 15 mcg/mL Pharmacokinetic information: Wt Readings from Last 1 Encounters: 02/06/19 101.4 kg (223 lb 9.6 oz) Ht Readings from Last 1 Encounters: 02/06/19 180.3 cm (5' 11) Labs: Vancomycin: Vanc Trough (mg/L) Date Value 02/07/2019 14.0 Creatinine clearance: Creatinine (mg/dL) Date Value 02/07/2019 1.82 (H) Recommendations: Dosing recommendations: ?? Based on this information it is recommended to give a dose of 1250 mg once. Subsequent doses of should be given when serum trough levels fall below 10-15 mg/L. Monitoring recommendations: ?? Reevaluate SCr/BUN with AM labs to determine if a scheduled dosing frequency may be possible. ?? Until then it is recommended to redose based upon serum trough levels. A repeat level will be retimed in the morning if continuing intermittent dosing by levels. We will continue to monitor the patient as long as he remains on vancomycin therapy. Please watch SCr, BUN and fluid status closely. Please page the care area pharmacist with any questions you may have. Alternately, during off-hours you may call [phone] to contact a pharmacist. JUANCHO ZULUAGA RPH * Plan of Care - Leticia Malone RN - 02/07/2019 6:08 PM EDT Problem: Skin Integrity Impairment, Risk/Actual (Adult) Goal: Identify Related Risk Factors and Signs and Symptoms Related risk factors and signs and symptoms are identified upon initiation of Human Response Clinical Practice Guideline (CPG) Outcome: Ongoing (Interventions Implemented as Appropriate) OUTCOME EVALUATION NOTE: OUTCOME SUMMARY: Patient resting between care today. Denying pain. Alert and oriented x4. A-fib with frequent PVCs, asymptomatic. BP WNL. Continued on high flow NC, currently at 40L at 40%, tolerating well. Patient still tacyhpneic, especially with exertion. Up to toilet with stand by/ 1 assist. Loose stool x1. Condom cath in place with adequate output. One dose of 40mg IV lasix given this morning. IV abx continued and changed around per team. New blood cultures sent this afternoon. Kidney ultrasound and ECHO done at bedside today. Tolerating carb control diet well. Will continue to monitor. PLAN MOVING FORWARD: Monitor vitals, continue abx, monitor respiratory status, increase mobility INDIVIDUALIZED FALL PREVENTION INTERVENTIONS: Patient-specific fall risk factors per assessment: [current deficits]: Generalized weakness, lines/drains Assistance [level of assistance required for transfers and ambulation]: 1 assist Supervision [direct monitoring required during toileting and ADLs]: Hands on Surveillance [continuous indirect monitoring]: Tele, apnea, pulse oximetry Patient-specific fall prevention interventions for sensory deficits provided, if applicable: n/a CPG GOAL OUTCOME EVALUATION: * Consult Note - Therese Lam MD - 02/07/2019 5:52 PM EDT INFECTIOUS DISEASE CONSULTATION NOTE Reason for Consult: Potential Etiology and mgmt of Enterococcus bacteremia Consulting Service: Medicine Consulting Attending: Trena Stoddard MD Admission Date: 02/06/2019 History of Present Illness: 68 y.o. male with a history of DM type II, HTN, HCV s/p rx with [facility], donor kidney transplant in 09/2015 on tacrolimus, mycophenolate, ureteral reconstruction sx for stricture unable to dilate, who was was recently admitted to the hospital due to an NSTEMI on January 30 2018 with a stent placement in the ostial OM. Did have a whaley catheter placed for 3 days. UA (-) on 01/31/2019. When he was discharged home he had persistent shortness of breath. His took his temperature and noted him to be febrile. She called Dr. Chun who then related that the patient should have further evaluation in the ED. Initially going to [facility] in [place] he was noted to be febrile and transferred here for further management. Was noted to be febrile Tmax 40.5 His chest x-ray was suspicious for pulmonary edema. Was initially started on ceftadizime, cefepime. This AM the teamwas page regarding a + blood culture + PCR for enterococcus and ID was consulted for further investigation. Upon interviewing Yash he felt little not mentally foggy. His noted him to be off. She took histemperature and noted the fever. He currently does not feel any chest pain, abdominal pain, nausea,vomiting, diarrhea. He does not have any change in the color of his urine. Does not have any dysuria. He is however quite short of breath. Review of Systems: Pertinent positives and negatives noted in HPI. 14 point ROS otherwise negative Past Medical History: Past Medical History: Diagnosis Date ??? Back pain ??? Colon polyp ??? CVA (cerebral vascular accident) Per report but no deficits ??? ESRD (end stage renal disease) ??? GERD (gastroesophageal reflux disease) ??? HTN (hypertension) ??? Microhematuria ??? Type 2 diabetes mellitus Past Surgical History: Past Surgical History: Procedure Laterality Date ??? PRO ANASTOMOSIS, AV, ANY SITE Left 05/09/2015 AV FISTULA CREATION, DIRECT HEMODIALYSIS, ANY SITE, EG ASHWINI FISTULA UPPER EXTREMITY performed by Que Amaro MD at [facility] MAIN OR ??? PRO CYSTOURETHROSCOPY, URETER CATHETER Left 06/17/2018 CYSTO, RETROGRADE, URETEROPYELOGRAPHY (WRVU 2.37) [facility] ??? PRO REIMPLANT URETER, SINGLE URETER Left 05/20/2016 @URETERONEOCYSTOSTOMY ANASTOMOSIS OF SINGLE URETER TO BLADDER performed by Santosh Arredondo MD at [facility] ??? PRO REIMPLANT URETER, SINGLE URETER N/A 05/20/2016 @URETERONEOCYSTOSTOMY ANASTOMOSIS OF SINGLE URETER TO BLADDER performed by Que Amaro MD at [facility] OR ??? PRO TOTAL KNEE ARTHROPLASTY Right 11/25/2017 TOTAL KNEE ARTHROPLASTY (WRVU 20.72) performed by Breezy Dale MD at [facility] OR ??? PRO TRANSPLANT, PREP CADAVER RENAL GRAFT N/A 09/16/2015 @PREPARATION CADAVERIC RENAL ALLOGRAFT performed by Franko Larkin MD at [facility] ??? PRO TRANSPLANTATION OF KIDNEY N/A 09/16/2015 @KIDNEY TRANSPLANT, WITHOUT RECIPIENT NEPHRECTOMY performed by Franko Larkin MD at [facility] ??? US RENAL TRANSPLANT LEFT Left 01/31/2019 US Renal Transplant Left 01/31/2019 [facility] RAD ULTRASOUND ??? US RENAL TRANSPLANT LEFT Left 02/07/2019 US Renal Transplant Left 02/07/2019 [facility] RAD ULTRASOUND Medications: ??? glucose (GLUTOSE) 40% oral gel OR dextrose 50% intravenous solution 25- 50 mL OR glucagon (human recombinant) injection SolR 1 mg ??? POCT Fingerstick Glucose AND insulin lispro (HumaLOG) VIAL injection 1-4 Units ??? acetaminophen (TYLENOL) tablet 650 mg ??? vancomycin- intermittent dosing per levels ??? chlorhexidine (PERIDEX) 0.12 % oral solution 15 mL ??? sodium chloride 0.9 % (flush) flush 5-20 mL ??? lidocaine (XYLOCAINE) 10 mg/mL (1 %) injection 3 mg ??? Vancomycin Level - MAR Order Reminder ??? piperacillin-tazobactam (ZOSYN) 3.375 g vial attach to sodium chloride 0.9% 50 mL Mini-Bag Plus ??? sodium chloride 0.9 % (flush) flush 5 mL ??? sodium chloride 0.9 % (flush) flush 5-20 mL ??? apixaban (ELIQUIS) tablet 5 mg ??? aspirin chewable tablet 81 mg ??? atorvastatin (LIPITOR) tablet 40 mg ??? calciTRIol (ROCALTROL) capsule 0.5 mcg ??? clopidogrel (PLAVIX) tablet 75 mg ??? levothyroxine (SYNTHROID) tablet 137 mcg ??? tamsulosin (FLOMAX) ER capsule 0.4 mg ??? tacrolimus (PROGRAF) capsule 1 mg ??? tacrolimus (PROGRAF) capsule 2 mg Prior Antimicrobial History: No recent antibiotics in the past 3 months Medications that may interact with Antimicrobials: Allergies: No Known Allergies Family History: Family History Problem Relation Age of Onset ??? Chronic Obstructive Pulmonary Disease Mother ??? Arrhythmia Mother ??? Heart Disease Father Social History: Lives with his Never drank alcohol Former smoker. He occasionally smokes cigars. No recent travel Has dogs Physical Exam: Last value Range last 24 hrs Temperature Temp: (!) 39.4 ??C (102.9 ??F)(team paged) Temp: [36.6 ??C (97.9 ??F)-40.5 ??C (104.9 ??F)] Heart Rate Heart Rate: 82 Heart Rate: [51-116] Blood Pressure BP: 159/82 BP: (91-167)/(40-102) Respiratory Rate Resp: (!) 33 Resp: [14-40] SpO2 SpO2: 96 % SpO2: [90 %-100 %] General: Alert and oriented, pleasant flushed older man Head: NC AT EENT: EOMI, no nasal secretions Neck: no LAD, thick neck difficult to assess for JVD Cardiovascular: RRR no obvious MRG Pulmonary: His breathing is laborious, decreased breath sounds at the bases abdomen: BS + ND NT no rebound tenderness no guarding Ext: UE and LE WWP. Right upper extremity fistula.distal pulses palpable throughout Skin: no rashes, no splinter hemorrhages Neuro: alert and oriented to person place time and situation. No facial droop. No dysarthia Psych: normal affect Laboratory: Recent Labs 02/07/19 1030 02/07/19 0150 02/06/19 2310 WBC 14.2* 14.2* 14.2* 19.7* 14.0* HGB 14.6 15.8 13.9 HCT 42.7 46.6 40.5 PLATELET 245 260 238 Recent Labs 02/07/19 0150 02/06/19 2310 02/04/19 1935 NA 133* 135 142 K 4.7 3.6 3.4* CL 94* 98 98 CO2 25 24 31 BUN 26* 26* 20 CREATININE 1.82* 1.68* 1.43 Recent Labs 02/06/19 2310 AST 17 ALT 15 ALKPHOS 47 BILITOT 2.2* BILIDIR 0.3 CRP (mg/L) Date Value 02/01/2018 8.5 (H) Sed Rate (mm/hr) Date Value 02/01/2018 25 (H) Component Value Date/Time SPGRAVITYUA 1.023 02/07/2019 0055 PHUADIP 5.0 02/07/2019 0055 PROTEINUADIP 100 (A) 02/07/2019 0055 GLUCOSEU Negative 02/07/2019 0055 KETONESUA Negative 02/07/2019 0055 UROBILIUADIP Normal 02/07/2019 0055 BLOODUADIP Negative 02/07/2019 0055 NITRATEUA Negative 02/07/2019 0055 LEUKOESTERUA Negative 02/07/2019 0055 WBCUA 22 (H) 02/07/2019 0055 BILIRUBINUA Negative 02/07/2019 0055 Micro: Blood Culture: 02/06 outside institution positive for enterococcus 02/07 no growth to date Urine Culture: Abx while inpatient(Abx-Dates): - Ceftazidime 2 g 02/07 - Cefepime 1 g 02/07 - Piperacillin- tazobactam 02/07 present - Vancomycin 02/07 present Scheduled Meds: ? ? insulin lispro 1-4 Units Subcutaneous 4 Times Daily AC & HS ??? chlorhexidine 15 mL Oral BID ??? Vancomycin Level - MAR Order Reminder NOT APPLICABLE Once ??? piperacillin-tazobactam 3.375 g Intravenous Q8H ??? sodium chloride 0.9 % (flush) 5 mL Intravenous BID ??? apixaban 5 mg Oral BID ??? aspirin 81 mg Oral Daily ??? atorvastatin 40 mg Oral QPM ??? calciTRIol 0.5 mcg Oral Daily ??? clopidogrel 75 mg Oral Daily ??? levothyroxine 137 mcg Oral Daily ??? tamsulosin 0.4 mg Oral Daily ??? tacrolimus 1 mg Oral Nightly ??? tacrolimus 2 mg Oral Daily Continuous Infusions: PRN Meds:.Glucose 40% oral gel OR dextrose OR glucagon (human recombinant), acetaminophen, vancomycin- intermittent dosing per levels, sodium chloride 0.9 % (flush), lidocaine, sodium chloride 0.9 % (flush) Radiology/Studies/Procedures: Renal US 02/07: The LEFT renal transplant is slightly enlarged compared to prior study Impression: Ethel Bolden is a 68 y.o. male with a history of DM type II, HTN, HCV s/p rx with [facility], donor kidney transplant in 09/2015 on tacrolimus, mycophenolate, ureteral reconstruction sx whopresents due to fever, shortness of breath admitted for further work-up and management chest x-ray with suggestive of pulmonary edema and blood cultures positive for enterococcus from an outside institution. I am worried the patient may have acquired his enterococcus from urinary source however he should undergo evaluation for possible intra-abdominal pathology as he is still febrile. His ultrasound of his renal transplant does show that is a slightly enlarged compared to previous. He will require a TTE in order to investigate for possible endocarditis. In the meantime he should start on piperacillintazobactam for gram-negative and anaerobic coverage along with vancomycin for potential resistant strains. We will be receiving susceptibility testing tomorrow from the outside institution. Recommendations: [] start Vancomycin with a trough goal of 10-15 [] start piperacillin-tazobactam 3.375 gm Q8H [] TTE [] Consider CT scan Abd/Pelvis with contrast if possible This patient was discussed with ID attending Dr. Lam. Recommendations discussed with primary treating team. Thank you very much for this interesting consult and allowing me to participate in this patient's care. The Infectious consult service will continue to follow patient. Do not hesitate to page with any further questions or concerns. Leelee Church MD 02/07/2019 5:52 PM [id number] ID ATTENDING I have seen the patient, reviewed the chart as well as the documentation as written by Dr. Church. The assessment and plan were formulated in discussion with me and I agree with them as documented. Iwould add/modify: 68yo man with renal transplant now presenting with enterococcal bacteremia of uncertain source, recently admitted w/NSTEMI. Typical sources for this organism include urine, intra-abdominal/GI tract. UA with pyuria, but no clear dysuria. Would rule out occult intra-abdominal source with CT A/P. Would also pursue TTE to start. For now while we rule out intra-abdominal source would keep gram negative an anaerobic coverage, if ruled out can narrow to focus on enterococcus. Monitor surveillance blood cultures. Will follow. Therese Lam MD Infectious Diseases * Initial Assessments - Patricia Jones RN - 02/07/2019 12:15 PM EDT Office of Care Management Initial Assessment Patricia Jones RN reviewed record and discussed patient with Care Team. Source of Information: pt Introduced self/reviewed role; services accepted. Reason for Hospitalization: History of present Illness: Ethel Bolden is a 68 y.o. 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 During this past hospitalization, patient was noted to be in a flutter RVR, and was rate controlledwith metoprolol, also with evidence of a NSTEMI, underwent cardiac catheterization with stent placement. Patient was initiated on eliquis. Also with acute hypoxic respiratory failure in the setting of volume overload, which was managed with diuresis patient was weaned off oxygen, by discharge . Course also complicated by RAY which was felt to be in the setting of decreased perfusion vs diuresis Trena Stoddard MD Date of Service: 02/06/2019 ??8:32 PM Past Medical History: Diagnosis Date ??? Back pain ??? Colon polyp ??? CVA (cerebral vascular accident) Per report but no deficits ??? ESRD (end stage renal disease) ??? GERD (gastroesophageal reflux disease) ??? HTN (hypertension) ??? Microhematuria ??? Type 2 diabetes mellitus Hospitalizations Within the Past 30 Days: see H&P Anticipated Length Of Stay (If known): Current Decision-Making Capacity: a,ox3.sligtly drowsy Advance Care Planning: written AD ,on file addy perkins [phone]/ [phone] Current Coping/Education/Information Needs: CM explained VNA, IPR,SNF with payment sources Current Functional Ability: 1 person assist -pt requires verbal cueing from staff to complete or initiate some actions Functional Status Prior to Admission: Same,per has cane and FWW at home Home Environment: lives with in 2 story house with bed/bath.kitchen on first tfloor Social & Family Supports/Community Resources: . Behavioral Health History: denied Substance Use/Abuse: denied Other Pertinent/Service Specific Information: na Health/Prescription Coverage: Primary Insurance: MEDICARE Secondary Insurance: COMMERCIAL GENERIC Prescription Coverage: yes Preferred Pharmacy: [facility] [place] Primary Care Provider: Urbano Denis DO [phone] Patient/Caregiver Goals of Treatment: home with VNA Potential Needs for Transition of Care: Rehab/SNF: na Home Health: VNA DME: owns cane/FWW Dialysis: ? Community Resources: na Transportation: Anticipated Barriers to Discharge/Special Considerations: had called renal transplant tea, to state she needed help at home with spouse as she cannot handle him anymore CM Will place VNA referral and place PATROL SUPERVISOR in VNA orders as well as PATROL SUPERVISOR consul tfor on CM stickynote Assessment: 68yowm in w AFIB w.RVR s/p renal tx 2016 6Ppt. with expressing concerns about caring for pt at home.Pt relates to this CM CM all is fine at homeMSW consultplaced tospeak with and VNA orders pended. Plan: A member of the Care Management team will continue to monitor progress, follow for continuityof care and assist with transition of care planning. Patricia Jones RN Pager: [phone] * Med Student Progress Note - Destinee Ochoa - 02/07/2019 11:03 AM EDT Med Student Progress Note ?? ID: Ethel Bolden is a 68 y.o. male with a history of Hep C treated with Harvoni, DM2, HTN, kidney transplant 2016 with ureteral reconstruction, who was discharged on 02/05 after an NSTEMI and hypoxic resp failure, who presents now with a fever. ?? Subjective: This morning, Mr. Bolden endorses fatigue, weakness, chills, hiccups, and subjective sensation of fever. He denies any chest pain, shortness of breath, cough, or abdominal pain. Vitals: Last value Range last 24 hrs Temperature Temp: (!) 38.5 ??C (101.3 ??F) Temp: [37.3 ??C (99.1 ??F)-40.5 ??C (104.9 ??F)] Heart Rate Heart Rate: 80 Heart Rate: [51-116] Blood Pressure BP: (!) 151/96 BP: (91-167)/(45-102) Respiratory Rate Resp: (!) 33 Resp: [14-40] SpO2 SpO2: 93 % SpO2: [90 %-98 %] Art BP BP (Arterial Line): -- Intake/Output Summary (Last 24 hours) at 02/07/2019 1104 Last data filed at 02/07/2019 1000 Gross per 24 hour Intake 973 ml Output 775 ml Net 198 ml ?? PE: General: Lying in bed, ill-appearing, covered in blankets Cardiac: Distant heart sounds, regular rate and rhythm, no m/r/g Lungs:??Unable to examine posterior lung pulliam due to patient positioning; front lung pulliam CTAD b/l Abdomen:??+ BS, no tenderness to palpation Extremities: Trace edema to knees b/l ?? Pertinent Labs: WBC: 14.2 <-- 19.7 <-- 14.0 <-- 9.8 (on discharge 02/05) Hgb: 15.8 Cr: 1.82 <-- 1.68 <-- 1.43 (on discharge 02/05) ?? Relevant Imaging and Procedures: CXR 02/06/2019 Patchy opacities are seen in the bilateral lungs. The heart is enlarged. Atelectasis is present at the lower lobes bilaterally. No pneumothorax. The osseous structures are unchanged. Again seen is an 11 mm hypodensity in the right proximal humerus which has a benign appearance. ?? Assessment and Plan: Ethel Bolden is a 68 y.o. male with a history of Hep C treated with Harvoni, DM2, HTN, kidney transplant 2016 with ureteral reconstruction, who was discharged on 02/05 after an NSTEMI and hypoxic resp failure, who presents now with a fever. Most likely due to an infection. Po ssible sources include the lung (pneumonia) and the urine. Will continue him on broad spectrum antibiotics (switching out ceftazidime for cefepime, as broader coverage). If not doing better in 24 hours, will consider adding an antifungal due to immunocompromised state. If starting antifungal, will need to adjust dose of tacrolimus. ?? # Fever - Continue vancomycin - D/c ceftazidime, begin cefepime 1g Q12H IV for anaerobic coverage - Follow up blood and urine cultures - Acetaminophen 650mg Q8H PRN for pain, fever - CD4:8 ratio, CD19, IgG levels # Pulm Edema # Hypoxic resp failure - likely due to his decreased EF, fluids given en route to the ED, and possibly due to a component of a lung infection. Will diurese him today. - Continue high flow oxygen as needed - Lasix 40mg IV this morning ?? # CKD s/p kidney transplant 2018 # RAY - Creatinine elevated today, may be due to a component of cardio-renal, may improve with diuresis per above - Continue tacrolimus 2mg AM, 1mg PM - Hold MMF in setting of infection - Continue calcitriol 0.5mcg daily - Hold home vit C - Hold potassium phosphate - Daily weights - Avoid nephrotoxic drugs - We recommend Dr. Eagle's input # NSTEMI # Aflutter - Continue aspirin 81mg - Continue atorvastatin 40mg - Continue apixaban 5mg BID - Continue clopidogrel # DM2 - Glucose adequately controlled - D/C glipizide during this acute insult - Continue sliding scale insulin ?? # Hypothyroidism - Continue Levothyroxine 137 mcg QD PO ?? # Urinary Retention - Continue tamsulosin 0.4mg QD PO ?? # Dispo - D/C pending urine cultures ?? Destinee Leggett M4 Pager: [phone] * Consult Note - Ozzy Lane, RN - 02/07/2019 4:00 AM EDT Life Safety Note [id number] Patient admitted to [facility] from OSH with increased weakness and SOB. Patient confused to time/dateyear. PCXR at 2352 showed cardiomegaly with pulmonary edema. Lasix 40 mg IV administered at 0034. [place] condom applied to patient. Became febrile at 0213, 39.5 with rigors. Tylenol administered by primary nurse. Heart Rate tnmuenu82's-110's, regular ,blood pressure 90's/70's, RR mid 30's, SOB mildly labored. Oxygen requirementsincreasing. Hi-Compa NC initiated by CHILD AND YOUTH PROGRAM ASSISTANT. ABG on Fio2 50% : 7.50/33/77/24.7/94.9, lactate 1.5 Patientstarted on ceftazidime and vancomycin. Patient remains confused to date/time/year. WBC now 19.7. A/P ? Heart failure/pneumonia Transfer patient to ISCU level of care for closer monitoring; to [facility] in ICU room 6. MARK OhN ,CCRN,RN documented in this encounter Plan of Treatment Upcoming Encounters Date Type Department Care Team (Late st Contact Info) Description 04/15/2024 10:00 AM EDT Hospital Encounter [place] [address] Arrived Scheduled Referrals Name Type Priority Associated Diagnoses Order Schedule OPAT: Order / Recommendation for Post Discharge IV Antibiotic Management Outpatient Referral Routine Bacteremia due to Enterococcus Pyelonephritis, acute Enterococcus faecalis infection Ordered: 02/09/2019 documented as of this encounter Goals Goal Patient Goal Type Associated Problems Recent Progress Patient-Stated? Author DH Home Medication Compliance and Understanding Patient Facing Action Plan On track( 017 10:41 AM EDT) Selena Scott, [facility] Note: Patient Goal: Clear hepatitis C Timeframe to meet goal: within 12 weeks of therapy documented as of this encounter Procedures Procedure Name Priority Date/Time Associated Diagnosis Comments POCT GLUCOSE Routine 02/11/2019 11:28 AM EDT POCT GLUCOSE Routine 02/11/2019 6:51 AM EDT HEMOGRAM Routine 02/11/2019 5:43 AM EDT BASIC METABOLIC PANEL Routine 02/11/2019 5:43 AM EDT POCT GLUCOSE Routine 02/10/2019 9:05 PM EDT POCT GLUCOSE Routine 02/10/2019 4:53 PM EDT POCT GLUCOSE Routine 02/10/2019 11:12 AM EDT POCT GLUCOSE Routine 02/10/2019 6:51 AM EDT HEMOGRAM Routine 02/10/2019 5:46 AM EDT DIFFERENTIAL, AUTOMATED Routine 02/10/2019 5:46 AM EDT CBC (WITH DIFF) Routine 02/10/2019 5:46 AM EDT PHOSPHORUS Routine 02/10/2019 5:46 AM EDT BASIC METABOLIC PANEL Routine 02/10/2019 5:46 AM EDT POCT GLUCOSE Routine 02/09/2019 9:33 PM EDT POCT GLUCOSE Routine 02/09/2019 8:19 PM EDT POCT GLUCOSE Routine 02/09/2019 5:33 PM EDT POCT GLUCOSE Routine 02/09/2019 11:30 AM EDT POCT GLUCOSE Routine 02/09/2019 8:32 AM EDT HEMOGRAM Routine 02/09/2019 3:55 AM EDT DIFFERENTIAL, AUTOMATED Routine 02/09/2019 3:55 AM EDT CBC (WITH DIFF) Routine 02/09/2019 3:55 AM EDT BASIC METABOLIC PANEL Routine 02/09/2019 3:55 AM EDT POCT GLUCOSE Routine 02/08/2019 8:31 PM EDT POCT GLUCOSE Routine 02/08/2019 4:04 PM EDT EKG 12-LEAD STAT 02/08/2019 3:18 PM EDT Atrial fibrillation with RVR - had flutter initially, then fib C. DIFFICILE SCREEN Routine 02/08/2019 1 :31 PM EDT POCT GLUCOSE Routine 02/08/2019 12:07 PM EDT POCT GLUCOSE Routine 02/08/2019 8:19 AM EDT HEMOGRAM Routine 02/08/2019 12:20 AM EDT DIFFERENTIAL, AUTOMATED Routine 02/08/2019 12:20 AM EDT CBC (WITH DIFF) Routine 02/08/2019 12:20 AM EDT BASIC METABOLIC PANEL Routine 02/08/2019 12:20 AM EDT POCT GLUCOSE Routine 02/07/2019 10:[address] ABDOMEN AND PELVIS WO CONTRAST Routine 02/07/2019 9:56 PM EDT POCT GLUCOSE Routine 02/07/2019 7:36 PM EDT VANCOMYCIN, TROUGH Timed 02/07/2019 6: 28 PM EDT POCT GLUCOSE Routine 02/07/2019 4:31 PM EDT ECHO LMTD W/O CONTRAST W LMTD SPEC DOPP COLOR DOPP Routine 02/07/2019 3:47 PM EDT Bacteremia due to Enterococcus US RENAL TRANSPLANT LEFT Routine 02/07/2019 2:15 PM EDT BLOOD CULTURE STAT 02/07/2019 12:55 PM EDT POCT GLUCOSE Routine 02/07/2019 12:13 PM EDT CD4+8 Routine 02/07/2019 10:30 AM EDT CD19 Routine 02/07/2019 10:30 AM EDT HEMOGRAM Routine 02/07/2019 10:30 AM EDT DIFFERENTIAL, AUTOMATED Routine 02/07/2019 10:30 AM EDT IGG Routine 02/07/2019 10:30 AM EDT POCT GLUCOSE Routine 02/07/2019 8:01 AM EDT EKG 12-LEAD STAT 02/07/2019 6:40 AM EDT Dyspnea, unspecified type TACROLIMUS LEVEL Routine 02/07/2019 6:30 AM EDT POCT GLUCOSE Routine 02/07/2019 3:27 AM EDT SCAN, PERIPHERAL BLOOD Routine 02/07/2019 1:50 AM EDT HEMOGRAM Routine 02/07/2019 1:50 AM EDT DIFFERENTIAL, AUTOMATED Routine 02/07/2019 1:50 AM EDT CBC (WITH DIFF) Routine 02/07/2019 1:50 AM EDT TROPONIN STAT 02/07/2019 1:50 AM EDT MAGNESIUM Routine 02/07/2019 1:50 AM EDT BASIC METABOLIC PANEL Routine 02/07/2019 1:50 AM EDT PATHOLOGY SLIDE REVIEW Routine 02/07/2019 1:50 AM EDT LEGIONELLA URINARY ANTIGEN Routine 02/07/2019 12:56 AM EDT UREA NITROGEN, URINE, RANDOM Routine 02/07/2019 12:56 AM EDT URINALYSIS MICROSCOPIC EXAM Routine 02/07/2019 12:55 AM EDT ELECTROLYTES, URINE, RANDOM Routine 02/07/2019 12:55 AM EDT CREATININE, URINE, RANDOM Routine 02/07/2019 12:55 AM EDT URINALYSIS WITH REFLEX CULTURE Routine 02/07/2019 12:55 AM EDT URINE CULTURE Routine 02/07/2019 12:55 AM EDT POCT GLUCOSE Routine 02/07/2019 12:27 AM EDT XR CHEST ONE VIEW STAT 02/06/2019 11: 52 PM EDT EKG 12-LEAD Routine 02/06/2019 11:20 PM EDT Dyspnea, unspecified type HEMOGRAM Routine 02/06/2019 11:10 PM EDT DIFFERENTIAL, AUTOMATED Routine 02/06/2019 11:10 PM EDT LACTATE, WHOLE BLOOD Routine 02/06/2019 11:10 PM EDT BLOOD CULTURE STAT 02/06/2019 11:10 PM EDT PROTHROMBIN TIME Routine 02/06/2019 11:1 0 PM EDT CBC (WITH DIFF) Routine 02/06/2019 11:10 PM EDT TROPONIN Routine 02/06/2019 11:10 PM EDT MAGNESIUM Routine 02/06/2019 11:10 PM EDT HEPATIC FUNCTION PANEL Routine 02/06/2019 11:10 PM EDT BASIC METABOLIC PANEL Routine 02/06/2019 11:10 PM EDT BLOOD CULTURE STAT 02/06/2019 11:00 PM EDT documented in this encounter Results * POCT Glucose (02/11/2019 11:28 AM EDT) Glucose, POC 182 65 - 199 mg/dL [facility] Comment: Supplemental ranges: <140 mg/dL before meals <180 mg/dL all other times of the day Blood specimen (specimen) 02/11/2019 11:28 AM EDT 02/11/2019 11:28 AM EDT Danny Hicks MD POINT OF CARE TEST O TED Performing Organization Address City/[facility]/ZIP Co de Phone Number [facility] [place] [address] * POCT Glucose (02/11/2019 6:51 AM EDT) Glucose, POC 134 65 - 199 mg/dL [facility] Comment: Supplemental ranges: <140 mg/dL before meals <180 mg/dL all other times of the day Blood specimen (specimen) 02/11/2019 6:51 AM EDT 02/11/2019 6:51 AM EDT Danny Hicks MD POINT OF CARE TEST O RDERABG [facility] [place] [address] * Basic Metabolic Panel (non-fasting) (02/11/2019 5:43 AM EDT) Glucose 155 65 - 199 mg/dL [facility] Comment:Diabetes: >=200 mg/d L plus symptoms Blood Urea Nitrogen 17 10 - 20 mg/dL [facility] Creatinine 1.20 0.80 - 1.50 mg/dL [facility] Sodium 138 135 - 145 mmol/L [facility] Potassium 3.8 3.5 - 5.0 mmol/L [facility] Comment: Please note: ??Patients with WBC >100,000 may have falsely elevated Potassium levels. ??For accurate Potassium quantification in these patients send serum separator tube (gold top) for subsequent determinations. ??Contact the Clinical Chemistry Laboratory if there are any questions. Chloride 99 98 - 107 mmol/L [facility] Carbon Dioxide 28 22 - 31 mmol/L [facility] Anion Gap 11 5 - 15 mmol/L [facility] Calcium 8.6 8.5 - 10.5 mg/dL [facility] Est Glomerular Filtration Rate 61 >=60 mL/min/1. 73 m?? [facility] Comment: The eGFR was calculated using the CKD-EPI equation. As with all creatinine based estimates of kidney function, eGFR values calculated with the CKD-EPI equation are not accurate in patients with acute kidney failure, extremes of body mass or the acutely ill. http://[employer]/DHMCnkf eGFR 71 >=60 mL/min/1. 73 m?? [facility] Comment: The eGFR was calculated using the CKD-EPI equation. As with all creatinine based estimates of kidney function, eGFR values calculated with the CKD-EPI equation are not accurate in patients with acute kidney failure, extremes of body mass or the acutely ill. http://[employer]/DHMCnkf Blood specimen (specimen) 02/11/2019 5:43 AM EDT 02/11/2019 5:57 AM EDT Narrative Resulting Agency Comment Spec In Lab Danny Hicks MD CHEMISTRY ORDERABLES [facility] [place] [address] * (ABNORMAL) Hemogram (02/11/2019 5:43 AM EDT) [facility] White Blood Cell 9.2 4.0 - 9.5 x10(3)/[facility] Red Blood Cell 4.39(L) 4.58 - 5.54 x10(6)/[facility] Hemoglobin 13.4(L) 13.7 - 16.5 gm/dL [facility] Hematocrit 39.9(L) 40.5 - 48.5 % [facility] Mean Cell Volume 90.9 82.9 - 93.1 fL [facility] Mean Cell Hemoglobin 30.5 27.5 - 32.1 pg [facility] Mean Cell Hemoglobin Concentration 33.6 32.0 - 35.7 gm/dL [facility] Platelet 281 145 - 357 x10(3)/[facility] RDW Standard Deviation 43.1 36.0 - 45.0 [facility] RDW coefficient of variation 13.2 11.4 - 13.8 % [facility] Mean Platelet Volume 9.5 7.6 - 12.9 [facility] NRBC% auto 0.0 % [facility] NRBC Absolute 0.000 0.000 - 0.000 x10(3)/[facility] Blood specimen (specimen) 02/11/2019 5:43 AM EDT 02/11/2019 5:57 AM EDT Narrative Resulting Agency Comment Spec In Lab Danny Hicks MD HEMATOLOGY ORDERABLE S [facility] [place] [address] * POCT Glucose (02/10/2019 9:05 PM EDT) [facility] Glucose, POC 181 65 - 199 mg/dL [facility] Comment: Supplemental ranges: <140 mg/dL before meals <180 mg/dL all other times of the day Blood specimen (specimen) 02/10/2019 9:05 PM EDT 02/10/2019 9:05 PM EDT Danny Hicks MD POINT OF CARE TEST O TED Performing Organization Address City/[facility]/ZIP Co de Phone Number [facility] [place] [address] * POCT Glucose (02/10/2019 4:53 PM EDT) Glucose, POC 165 65 - 199 mg/dL [facility] Comment: Supplemental ranges: <140 mg/dL before meals <180 mg/dL all other times of the day Blood specimen (specimen) 02/10/2019 4:53 PM EDT 02/10/2019 4:53 PM EDT Danyn Hicks MD POINT OF CARE TEST O TED Performing Organization Address [facility]/ZIP Co de Phone Number [facility] [place] [address] * POCT Glucose (02/10/2019 11:12 AM EDT) Glucose, POC 175 65 - 199 mg/dL [facility] Comment: Supplemental ranges: <140 mg/dL before meals <180 mg/dL all other times of the day Blood specimen (specimen) 02/10/2019 11:12 AM EDT 02/10/2019 11:12 AM EDT Danny Hicks MD POINT OF CARE TEST O TED Performing Organization Address City/[facility]/ZIP Co de Phone Number [facility] [place] [address] * POCT Glucose (02/10/2019 6:51 AM EDT) Glucose, POC 126 65 - 199 mg/dL [facility] Comment: Supplemental ranges: <140 mg/dL before meals <180 mg/dL all other times of the day Blood specimen (specimen) 02/10/2019 6:51 AM EDT 02/10/2019 6:51 AM EDT Danny Hicks MD POINT OF CARE TEST O RDERABLES Performing Organization Address City/[facility] Co de Phone Number [facility] [place] [address] * (ABNORMAL) Phosphorus (02/10/2019 5:46 AM EDT) Pathologist [facility] Phosphorus 2.1(L) 2.5 - 4.5 mg/dL [facility] Blood specimen (specimen) Venous Draw / Unknown 02/10/2019 5:46 AM EDT 02/10/2019 7:11 AM EDT Narrative Resulting Agency Comment Spec In Lab Danny Hicks MD CHEMISTRY ORDERABLES Performing Organization Address [facility] Co de Phone Number [facility] [place] [address] * (ABNORMAL) Differential, Automated (02/10/2019 5:46 AM EDT) [facility] Neutrophil % 72.7 % [facility] Neutrophil Absolute 6.58(H) 1.70 - 6.10 x10(3)/mc L [facility] Lymph % 11.6 % [facility] Lymphocytes Abs 1.0 0.9 - 3.2 x10(3)/mc L [facility] Monocyte % 13.5 % [facility] Monocyte Abs 1.2(H) 0.3 - 0.9 x10(3)/mc L [facility] Eos % 1.1 % [facility] Eosinophils Abs 0.1 0.0 - 0.4 x10(3)/mc L [facility] Basophil % 0.4 % [facility] Baso Absolute 0.0 0.0 - 0.1 x10(3)/mc L [facility] Immature Gran % 0.70 % [facility] Comment: Immature granulocytes(IG's)percentage and absolute count will include metamyelocytes, myelocytes, and promyelocytes. Blood smears from CBCs yielding IG's will be scanned manually for concordance. If this scan disagrees with the automated IG or if promyelocytes are noted, a manual differential will be performed. Immature Gran Absolute 0.06(H) 0.00 - 0.04 x10(3)/mc L [facility] Blood specimen (specimen) 02/10/2019 5:46 AM EDT 02/10/2019 6:02 AM EDT Narrative Resulting Agency Comment Spec In Lab Danny Hicks MD HEMATOLOGY ORDERABLE S [facility] [place] [address] * (ABNORMAL) Hemogram (02/10/2019 5:46 AM EDT) White Blood Cell 9.0 4.0 - 9.5 x10(3)/ L [facility] Red Blood Cell 4.40(L) 4.58 - 5.54 x10(6)/mc L [facility] Hemoglobin 13.5(L) 13.7 - 16.5 gm/dL [facility] Hematocrit 39.6(L) 40.5 - 48.5 % [facility] Mean Cell Volume 90.0 82.9 - 93.1 fL [facility] Mean Cell Hemoglobin 30.7 27.5 - 32.1 pg [facility] Mean Cell Hemoglobin Concentration 34.1 32.0 - 35.7 gm/dL [facility] Platelet 244 145 - 357 x10(3)/mc L [facility] RDW Standard Deviation 43.5 36.0 - 45.0 fL [facility] RDW coefficient of variation 13.2 11.4 - 13.8 % [facility] Mean Platelet Volume 9.7 7.6 - 12.9 fL [facility] NRBC% auto 0.0 % [facility] NRBC Absolute 0.000 0.000 - 0.000 x10(3)/mc L [facility] Blood specimen (specimen) 02/10/2019 5:46 AM EDT 02/10/2019 6:02 AM EDT Narrative Resulting Agency Comment Spec In Lab Danny Hicks MD HEMATOLOGY ORDERABLE S [facility] [place] [address] * (ABNORMAL) Basic Metabolic Panel (non-fasting) (02/10/2019 5:46 AM EDT) Glucose 136 65 - 199 mg/dL [facility] Comment:Diabetes: >=200 mg/d L plus symptoms Blood Urea Nitrogen 18 10 - 20 mg/dL [facility] Creatinine 1.31 0.80 - 1.50 mg/dL [facility] Sodium 133(L) 135 - 145 mmol/L [facility] Potassium 3.8 3.5 - 5.0 mmol/L [facility] Comment: Please note: ??Patients with WBC >100,000 may have falsely elevated Potassium levels. ??For accurate Potassium quantification in these patients send serum separator tube (gold top) for subsequent determinations. ??Contact the Clinical Chemistry Laboratory if there are any questions. Chloride 96(L) 98 - 107 mmol/L [facility] Carbon Dioxide 28 22 - 31 mmol/L [facility] Anion Gap 9 5 - 15 mmol/L [facility] Calcium 8.5 8.5 - 10.5 mg/dL [facility] Est Glomerular Filtration Rate 55(L) >=60 mL/min/1. 73 m?? [facility] Comment: The eGFR was calculated using the CKD-EPI equation. As with all creatinine based estimates of kidney function, eGFR values calculated with the CKD-EPI equation are not accurate in patients with acute kidney failure, extremes of body mass or the acutely ill. [email or web address] eGFR 63 >=60 mL/min/1. 73 m?? [facility] Comment: The eGFR was calculated using the CKD-EPI equation. As with all creatinine based estimates of kidney function, eGFR values calculated with the CKD-EPI equation are not accurate in patients with acute kidney failure, extremes of body mass or the acutely ill. [email or web address]/[email or web address] Blood specimen (specimen) 02/10/2019 5:46 AM EDT 02/10/2019 6:02 AM EDT Narrative Resulting Agency Comment Spec In Lab Danny Hicks MD CHEMISTRY ORDERABLES Performing Organization Address [facility] Co de Phone Number [facility] [place] [address] * (ABNORMAL) POCT Glucose (02/09/2019 9:33 PM EDT) Glucose, POC 213(H) 65 - 199 mg/dL [facility] Comment: Supplemental ranges: <140 mg/dL before meals <180 mg/dL all other times of the day Blood specimen (specimen) 02/09/2019 9:33 PM EDT 02/09/2019 9:33 PM EDT Danny Hicks MD POINT OF CARE TEST O RDERABLES Performing Organization Address [facility]/ZIP Co de Phone Number [facility] [place] [address] * POCT Glucose (02/09/2019 8:19 PM EDT) Glucose, POC 176 65 - 199 mg/dL [facility] Comment: Supplemental ranges: <140 mg/dL before meals <180 mg/dL all other times of the day Blood specimen (specimen) 02/09/2019 8:19 PM EDT 02/09/2019 8:19 PM EDT Danny Hicks MD POINT OF CARE TEST O RDERABG Performing Organization Address [facility] Co de Phone Number [facility] [place] [address] * POCT Glucose (02/09/2019 5:33 PM EDT) Glucose, POC 121 65 - 199 mg/dL [facility] Comment: Supplemental ranges: <140 mg/dL before meals <180 mg/dL all other times of the day Blood specimen (specimen) 02/09/2019 5:33 PM EDT 02/09/2019 5:33 PM EDT Danny Hicks MD POINT OF CARE TEST O TED Performing Organization Address [facility] Co de Phone Number [facility] [place] [address] * POCT Glucose (02/09/2019 11:30 AM EDT) Glucose, POC 172 65 - 199 mg/dL [facility] Comment: Supplemental ranges: <140 mg/dL before meals <180 mg/dL all other times of the day Blood specimen (specimen) 02/09/2019 11:30 AM EDT 02/09/2019 11:30 AM EDT Danny Hicks MD POINT OF CARE TEST O DENNYSERABG Performing Organization Address [facility] Co de Phone Number [facility] [place] [address] * POCT Glucose (02/09/2019 8:32 AM EDT) Glucose, POC 149 65 - 199 mg/dL [facility] Comment: Supplemental ranges: <140 mg/dL before meals <180 mg/dL all other times of the day Blood specimen (specimen) 02/09/2019 8:32 AM EDT 02/09/2019 8:32 AM EDT Danny Hicks MD POINT OF CARE TEST O RDERABLES [facility] [place] [address] * (ABNORMAL) Differential, Automated (02/09/2019 3:55 AM EDT) Neutrophil % 74.3 % [facility] Neutrophil Absolute 6.75(H) 1.70 - 6.10 x10(3)/mc L [facility] Lymph % 9.4 % [facility] Lymphocytes Abs 0.8(L) 0.9 - 3.2 x10(3)/mc L [facility] Monocyte % 15.3 % [facility] Monocyte Abs 1.4(H) 0.3 - 0.9 x10(3)/mc L [facility] Eos % 0.2 % [facility] Eosinophils Abs 0.0 0.0 - 0.4 x10(3)/mc L [facility] Basophil % 0.2 % [facility] Baso Absolute 0.0 0.0 - 0.1 x10(3)/mc L [facility] Immature Gran % 0.60 % [facility] Comment: Immature granulocytes(IG's)percentage and absolute count will include metamyelocytes, myelocytes, and promyelocytes. Blood smears from CBCs yielding IG's will be scanned manually for concordance. If this scan disagrees with the automated IG or if promyelocytes are noted, a manual differential will be performed. Immature Gran Absolute 0.05(H) 0.00 - 0.04 x10(3)/mc L [facility] Blood specimen (specimen) 02/09/2019 3:55 AM EDT 02/09/2019 4:09 AM EDT Narrative Resulting Agency Comment Spec In Lab Danny Hicks MD HEMATOLOGY ORDERABLE S Performing Organization Address [facility] Co de Phone Number [facility] [place] [address] * (ABNORMAL) Hemogram (02/09/2019 3:55 AM EDT) [facility] White Blood Cell 9.1 4.0 - 9.5 x10(3)/ L [facility] Red Blood Cell 4.24(L) 4.58 - 5.54 x10(6)/ L [facility] Hemoglobin 13.3(L) 13.7 - 16.5 gm/dL [facility] Hematocrit 38.3(L) 40.5 - 48.5 % [facility] Mean Cell Volume 90.3 82.9 - 93.1 fL [facility] Mean Cell Hemoglobin 31.4 27.5 - 32.1 pg [facility] Mean Cell Hemoglobin Concentration 34.7 32.0 - 35.7 gm/dL [facility] Platelet 220 145 - 357 x10(3)/[facility] RDW Standard Deviation 43.8 36.0 - 45.0 [facility] RDW coefficient of variation 13.3 11.4 - 13.8 % [facility] Mean Platelet Volume 9.8 7.6 - 12.9 fL [facility] NRBC% auto 0.0 % [facility] NRBC Absolute 0.000 0.000 - 0.000 x10(3)/[facility] Blood specimen (specimen) 02/09/2019 3:55 AM EDT 02/09/2019 4:09 AM EDT Narrative Resulting Agency Comment Spec In Lab Danny Hicks MD HEMATOLOGY ORDERABLE S [facility] [place] [address] * (ABNORMAL) Basic Metabolic Panel (non-fasting) (02/09/2019 3:55 AM EDT) [facility] Glucose 173 65 - 199 mg/dL [facility] Comment:Diabetes: >=200 mg/d L plus symptoms Blood Urea Nitrogen 24(H) 10 - 20 mg/dL [facility] Creatinine 1.58(H) 0.80 - 1.50 mg/dL [facility] Sodium 133(L) 135 - 145 mmol/L [facility] Potassium 3.6 3.5 - 5.0 mmol/L [facility] Comment: Please note: ??Patients with WBC >100,000 may have falsely elevated Potassium levels. ??For accurate Potassium quantification in these patients send serum separator tube (gold top) for subsequent determinations. ??Contact the Clinical Chemistry Laboratory if there are any questions. Chloride 96(L) 98 - 107 mmol/L [facility] Carbon Dioxide 28 22 - 31 mmol/L [facility] Anion Gap 9 5 - 15 mmol/L [facility] Calcium 8.5 8.5 - 10.5 mg/dL [facility] Est Glomerular Filtration Rate 44(L) >=60 mL/min/1. 73 m?? [facility] Comment: The eGFR was calculated using the CKD-EPI equation. As with all creatinine based estimates of kidney function, eGFR values calculated with the CKD-EPI equation are not accurate in patients with acute kidney failure, extremes of body mass or the acutely ill. http://[employer]/[facility]ENNEnkf eGFR 51(L) >=60 mL/min/1. 73 m?? [facility] Comment: The eGFR was calculated using the CKD-EPI equation. As with all creatinine based estimates of kidney function, eGFR values calculated with the CKD-EPI equation are not accurate in patients with acute kidney failure, extremes of body mass or the acutely ill. [email or web address] Blood specimen (specimen) 02/09/2019 3:55 AM EDT 02/09/2019 4:09 AM EDT Narrative Resulting Agency Comment Spec In Lab Danny Hicks MD CHEMISTRY ORDERABLES [facility] [place] [address] * POCT Glucose (02/08/2019 8:31 PM EDT) Glucose, POC 153 65 - 199 mg/dL [facility] Comment: Supplemental ranges: <140 mg/dL before meals <180 mg/dL all other times of the day Blood specimen (specimen) 02/08/2019 8:31 PM EDT 02/08/2019 8:31 PM EDT Danny Hicks MD POINT OF CARE TEST Mario JEAN Performing Organization Address [facility] Co de Phone Number [facility] [place] [address] * POCT Glucose (02/08/2019 4:04 PM EDT) Glucose, POC 198 65 - 199 mg/dL [facility] Comment: Supplemental ranges: <140 mg/dL before meals <180 mg/dL all other times of the day Blood specimen (specimen) 02/08/2019 4:04 PM EDT 02/08/2019 4:04 PM EDT Trena Stoddard MD POINT OF CARE TEST Mario JEAN Performing Organization Address [facility] Co de Phone Number [facility] [place] [address] * EKG 12 Lead (02/08/2019 3:18 PM EDT) Ventricular rate 71 BPM MUSE SYSTEM Atrial Rate 96 BPM MUSE SYSTEM P-R Interval 160 ms MUSE SYSTEM QRS Duration 108 ms MUSE SYSTEM Q-T Interval 402 ms MUSE SYSTEM QTC Calculated (Bezet) 436 ms MUSE SYSTEM Calculated P [place] 73 degrees MUSE SYSTEM Calculated R [place] -63 degrees MUSE SYSTEM Calculated T [place] 10 degrees MUSE SYSTEM INTERPRETATION Sinus rhythm with frequent Premature supraventricular complexes Left anterior fascicular block T wave abnormality, consider inferior ischemia Abnormal ECG When compared with ECG of 07-FEB-2019 06:40, No significant change was found Confirmed by MD Yoselin, Memo ([id number]) on 02/09/2019 1:03:56 PM MUSE SYSTEM 02/08/2019 3:18 PM EDT 02/09/2019 1:03 PM EDT Danny Hicks MD ECG ORDERABLES Performing Organization Address [facility] Co de Phone Number MUSE SYSTEM * C. Difficile Screen (02/08/2019 1:31 PM EDT) C Diff Interp Negative Negative [facility] Comment: C. diff ??Negative Clostridium difficile is not present in the specimen. If patient is having diarrhea suspected to be from an infectious cause, then Contact Precautions are still required. Stool specimen (specimen) 02/08/2019 1:31 PM EDT 02/08/2019 1:55 PM EDT Narrative Resulting Agency Comment Spec In Lab Danny Hicks MD MICROBIOLOGY - GENER AL ORDERABLES Performing Organization Address [facility] Co de Phone Number [facility] [place] [address] * POCT Glucose (02/08/2019 12:07 PM EDT) Glucose, POC 197 65 - 199 mg/dL [facility] Comment: Supplemental ranges: <140 mg/dL before meals <180 mg/dL all other times of the day Blood specimen (specimen) 02/08/2019 12:07 PM EDT 02/08/2019 12:07 PM EDT Trena Stoddard MD POINT OF CARE TEST O RDERABLES Performing Organization Address [facility] Co de Phone Number [facility] [place] [address] * POCT Glucose (02/08/2019 8:19 AM EDT) Glucose, POC 123 65 - 199 mg/dL [facility] Comment: Supplemental ranges: <140 mg/dL before meals <180 mg/dL all other times of the day Blood specimen (specimen) 02/08/2019 8:19 AM EDT 02/08/2019 8:19 AM EDT Trena Stoddard MD POINT OF CARE TEST O RDERABLES [facility] [place] [address] * (ABNORMAL) Differential, Automated (02/08/2019 12:20 AM EDT) Neutrophil % 84.1 % [facility] Neutrophil Absolute 10.28(H) 1.70 - 6.10 x10(3)/mc L [facility] Lymph % 4.1 % [facility] Lymphocytes Abs 0.5(L) 0.9 - 3.2 x10(3)/ L [facility] Monocyte % 11.2 % [facility] Monocyte Abs 1.4(H) 0.3 - 0.9 x10(3)/mc L [facility] Eos % 0.0 % [facility] Eosinophils Abs 0.0 0.0 - 0.4 x10(3)/ L [facility] Basophil % 0.1 % [facility] Baso Absolute 0.0 0.0 - 0.1 x10(3)/mc L [facility] Immature Gran % 0.50 % [facility] Comment: Immature granulocytes(IG's)percentage and absolute count will include metamyelocytes, myelocytes, and promyelocytes. Blood smears from CBCs yielding IG's will be scanned manually for concordance. If this scan disagrees with the automated IG or if promyelocytes are noted, a manual differential will be performed. Immature Gran Absolute 0.06(H) 0.00 - 0.04 x10(3)/ L [facility] Blood specimen (specimen) 02/08/2019 12:20 AM EDT 02/08/2019 1:08 AM EDT Narrative Resulting Agency Comment Spec In Lab Danny Hicks MD HEMATOLOGY ORDERABLE S [facility] [place] [address] * (ABNORMAL) Hemogram (02/08/2019 12:20 AM EDT) [facility] White Blood Cell 12.2(H) 4.0 - 9.5 x10(3)/ L [facility] Red Blood Cell 4.25(L) 4.58 - 5.54 x10(6)/ L [facility] Hemoglobin 13.2(L) 13.7 - 16.5 gm/dL [facility] Hematocrit 38.0(L) 40.5 - 48.5 % [facility] Mean Cell Volume 89.4 82.9 - 93.1 fL [facility] Mean Cell Hemoglobin 31.1 27.5 - 32.1 pg [facility] Mean Cell Hemoglobin Concentration 34.7 32.0 - 35.7 gm/dL [facility] Platelet 200 145 - 357 x10(3)/ L [facility] RDW Standard Deviation 44.3 36.0 - 45.0 [facility] RDW coefficient of variation 13.7 11.4 - 13.8 % [facility] Mean Platelet Volume 9.8 7.6 - 12.9 [facility] NRBC% auto 0.0 % [facility] NRBC Absolute 0.000 0.000 - 0.000 x10(3)/[facility] Blood specimen (specimen) 02/08/2019 12:20 AM EDT 02/08/2019 1:08 AM EDT Narrative Resulting Agency Comment Spec In Lab Danny Hicks MD HEMATOLOGY ORDERABLE S [facility] [place] [address] * (ABNORMAL) Basic Metabolic Panel (non-fasting) (02/08/2019 12:20 AM EDT) Glucose 171 65 - 199 mg/dL [facility] Comment:Diabetes: >=200 mg/d L plus symptoms Blood Urea Nitrogen 28(H) 10 - 20 mg/dL [facility] Creatinine 1.70(H) 0.80 - 1.50 mg/dL [facility] Sodium 132(L) 135 - 145 mmol/L [facility] Potassium 3.3(L) 3.5 - 5.0 mmol/L [facility] Comment: result rechecked- Please note: ??Patients with WBC >100,000 may have falsely elevated Potassium levels. ??For accurate Potassium quantification in these patients send serum separator tube (gold top) for subsequent determinations. ??Contact the Clinical Chemistry Laboratory if there are any questions. Chloride 96(L) 98 - 107 mmol/L [facility] Carbon Dioxide 24 22 - 31 mmol/L [facility] Anion Gap 12 5 - 15 mmol/L [facility] Calcium 8.2(L) 8.5 - 10.5 mg/dL [facility] Est Glomerular Filtration Rate 40(L) >=60 mL/min/1. 73 m?? [facility] Comment: The eGFR was calculated using the CKD-EPI equation. As with all creatinine based estimates of kidney function, eGFR values calculated with the CKD-EPI equation are not accurate in patients with acute kidney failure, extremes of body mass or the acutely ill. http://[employer]/[facility]ENNEnkf eGFR 46(L) >=60 mL/min/1. 73 m?? [facility] Comment: The eGFR was calculated using the CKD-EPI equation. As with all creatinine based estimates of kidney function, eGFR values calculated with the CKD-EPI equation are not accurate in patients with acute kidney failure, extremes of body mass or the acutely ill. [email or web address] Blood specimen (specimen) 02/08/2019 12:20 AM EDT 02/08/2019 1:08 AM EDT Narrative Resulting Agency Comment Spec In Lab Danny Hicks MD CHEMISTRY ORDERABLES Performing Organization Address [facility]/ZIP Co de Phone Number [facility] [place] [address] * POCT Glucose (02/07/2019 10:06 PM EDT) Glucose, POC 168 65 - 199 mg/dL [facility] Comment: Supplemental ranges: <140 mg/dL before meals <180 mg/dL all other times of the day Blood specimen (specimen) 02/07/2019 10:06 PM EDT 02/07/2019 10:06 PM EDT Trena Stoddard MD POINT OF CARE TEST O RDERABLES Performing Organization Address [facility] Co de Phone Number [facility] [place] [address] * CT Abdomen & Pelvis wo Contrast (02/07/2019 9:56 PM EDT) Anatomical Region Laterality Modality Abdomen, Pelvis Computed Tomogra phy Impressions 02/08/2019 1:45 AM EDT 1. ??Slightly edematous transplant kidney within the left lower quadrant with increased perinephric stranding. Correlate with urinalysis for signs of infection. 2. ??New small bilateral pleural effusions. 3. ??Cholelithiasis without cholecystitis. Preliminary report signed by: Victor Manuel Edwards at 02/08/2019 1:31 AM I have personally reviewed the image(s) and the residents interpretation and agree with the findings, Franca Francisco at 02/08/2019 1:45 AM Thank you for letting us participate in the care of this patient. For questions regarding this report, please contact the number below. ? 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 ??Multiplanar reformatted images were generated. COMPARISON: Renal ultrasound dated 02/07/2019. CT abdomen pelvis dated 06/16/2018. FINDINGS: The absence of intravenous contrast limits the evaluation of solid viscera and vasculature. Lower chest: Small bilateral pleural effusions. The left ventricle is dilated.. Liver: Normal size and attenuation. Bile ducts: Nondilated. Gallbladder: Small calcified gallstone at the gallbladder neck. Normal caliber wall. No pericholecystic fluid. Pancreas: Mild fatty atrophy. No mass or ductal dilatation. Spleen: Normal. Adrenals: Normal. [place] left kidney: Atrophic with mild left hydronephrosis due to surgical clips at the left ureter for ureter ligation. Unchanged 4.4 cm simple cyst arising from the left lower pole. [place] right kidney: Atrophic. No hydronephrosis. Transplant kidney: Left lower quadrant transplant kidney. There is slightly increased perinephric stranding. The transplant kidney is mildly edematous. Expected appearance of a left [place] flap. Vasculature: No aneurysm. Lymph Nodes: No pathologically enlarged lymph nodes. Bowel: Nondilated, no wall thickening. The appendix is not visualized. Sigmoid diverticulosis without evidence of diverticulitis. Peritoneum and mesentery: No ascites, free air, or loculated fluid collection. No mesenteric inflammation. Abdominal wall: Scarring from midline abdominal and lower pelvic surgical incision. Reproductive organs: Prostatic calcifications. Osseous structures: No acute osseous lesion. No suspicious lytic or sclerotic lesion. Procedure Note Franca Francisco MD - 02/08/2019 EXAMINATION: CT ABDOMEN AND PELVIS WO CONTRAST CLINICAL HISTORY: 68 yo M with h/o transplanted kidney onimmunosupression admitted with enterococcus bacteremia, looking for source of bloodstream infection TECHNIQUE: Helical CT of the abdomen and pelvis was performed without theuse of intravenous contrast. Multiplanar reformatted images were generated. COMPARISON: Renal ultrasound dated 02/07/2019. CT abdomen pelvis dated108/17/2017. FINDINGS: The absence of intravenous contrast limits the evaluation of solid visceraand vasculature. Lower chest: Small bilateral pleural effusions. The left ventricle isdilated.. Liver: Normal size and attenuation. Bile ducts: Nondilated. Gallbladder: Small calcified gallstone at the gallbladder neck. Normalcaliber wall. No pericholecystic fluid. Pancreas: Mild fatty atrophy. No mass or ductal dilatation. Spleen: Normal. Adrenals: Normal. [place] left kidney: Atrophic with mild left hydronephrosis due to surgicalclips at the left ureter for ureter ligation. Unchanged 4.4 cm simple cystarising from the left lower pole. [place] right kidney: Atrophic. No hydronephrosis. Transplant kidney: Left lower quadrant transplant kidney. There isslightly increased perinephric stranding. The transplant kidney is mildlyedematous. Expected appearance of a left Bo[place] flap. Vasculature: No aneurysm. Lymph Nodes: No pathologically enlarged lymph nodes. Bowel: Nondilated, no wall thickening. The appendix is not visualized.Sigmoid diverticulosis without evidence of diverticulitis. Peritoneum and mesentery: No ascites, free air, or loculated fluidcollection. No mesenteric inflammation. Abdominal wall: Scarring from midline abdominal and lower pelvicsurgical incision. Reproductive organs: Prostatic calcifications. Osseous structures: No acute osseous lesion. No suspicious lytic orsclerotic lesion. IMPRESSION 1. Slightly edematous transplant kidney within the left lower quadrantwith increased perinephric stranding. Correlate with urinalysis for signs of infection. 2. New small bilateral pleural effusions. 3. Cholelithiasis without cholecystitis. Preliminary report signed by: Victor Manuel Edwards at 02/08/2019 1:31 AM I have personally reviewed the image(s) and the residents interpretationand agree with the findings, Franca Francisco at 02/08/2019 1:45 AM Thank you for letting us participate in the care of this patient. Forquestions regarding this report, please contact the number below. Danny Hicks MD IMG CT ORDERABLES * POCT Glucose (02/07/2019 7:36 PM EDT) Glucose, POC 171 65 - 199 mg/dL [facility] Comment: Supplemental ranges: <140 mg/dL before meals <180 mg/dL all other times of the day Blood specimen (specimen) 02/07/2019 7:36 PM EDT 02/07/2019 7:36 PM EDT Trena Stoddard MD POINT OF CARE TEST O RDERABLES Performing Organization Address [facility] Co de Phone Number [facility] [place] [address] * Vancomycin, trough (02/07/2019 6:28 PM EDT) Pathologist [facility] Vancomycin, Trough 14.0 mg/L [facility] Comment: Therapeutic range for complicated infections such as bacteremia, endocarditis, osteomyelitis, meningitis, and hospital-acquired pneumonia caused by S. aureus: 15-20 mg/L Therapeutic range for other indications: 10-15 mg/L Toxic: >20 mg/L Reference: Vancomycin Therapeutic Monitoring: Review and Recommendations from the ASHP, IDSA and SIDP Task Force. ??Am J Health-Syst Pharm. 2009; 66:82-98 Blood specimen (specimen) 02/07/2019 6:28 PM EDT 02/07/2019 6:35 PM EDT Narrative Resulting Agency Comment Spec In Lab Danny Hicks MD CHEMISTRY ORDERABLES Performing Organization Address [facility]/ZIP Co de Phone Number [facility] [place] [address] * POCT Glucose (02/07/2019 4:31 PM EDT) Glucose, POC 116 65 - 199 mg/dL [facility] Comment: Supplemental ranges: <140 mg/dL before meals <180 mg/dL all other times of the day Blood specimen (specimen) 02/07/2019 4:31 PM EDT 02/07/2019 4:31 PM EDT Trnea Stoddard MD POINT OF CARE TEST O RDERABLES [facility] [place] [address] * ECHO LMTD W/O CONTRAST W LMTD SPEC DOPP COLOR DOPP (02/07/2019 3:47 PM EDT) EF 40-50 [facility] SYSTEM Anatomical Region Laterality Modality Other 02/07/2019 Narrative 02/07/2019 4:26 PM EDT Procedure: ?Transthoracic Echocardiogram Patient: ?MABLE DAVENPORT P ? (Age): 1950(68y) Med Rec#: ? [id number] ?Sex: ?M ? Site Loc: ? [facility] ?Ht / Wt: ??180(cm)/101(kg) Pt. Loc: ?ICU ? BSA: ?2.2 Study Date: ?? 02/07/2019 ?Pt. Type: Inpatient Tape: ? Referring: JACKY Reading: Ibrahima Celis ([id number]) Geotechnical Intern: Quynh Calzada Diagnosis: *Enterococcus as the cause of diseases classified elsewhere (B95.2) *Bacteremia (R78.81) *Limited TTE today BP: ? 124/51 SUMMARY: 1. Limited TTE today 2. There is normal global left ventricular systolic function. 3. The quantitative left ventricular ejection fraction by biplane Elizabeth's method is 56%. ??The visually estimated EF 40-50% ??There are left ventricular segmental wall motion abnormalities present, as shown in the diagram below. 4. Right ventricular chamber size, wall thickness, and systolic function are within normal limits. 5. Borderline concentric left ventricular hypertrophy is observed. There is no evidence of LVOT obstruction. ?? There is mild dilatation of the aortic [...] mild to moderate (1-2+/4+) tricuspid regurgitation present. ??No obvious vegetations are seen. ?? 8. A trivial pericardial effusion is visualized. The estimated pulmonary artery systolic pressure is 29 mmHg.plus RAP. When compared to the prior 02/01/19 study, the current study has limited views for a comprehensive wall motion analysis, but overall LV function and segmental wall motion abnomalities have improved. ?? Findings ? : Study Quality: ? Adequate Left Ventricle: ? The left ventricular chamber size is normal. ?Borderline concentric left ventricular hypertrophy is observed. ?There is no evidence of LVOT obstruction. ?No ventricular septal defect is visualized. ?There is normal global left ventricular systolic function. ?The quantitative left ventricular ejection fraction by biplane Elizabeth's method is 56%. ?There are left ventricular segmental wall motion abnormalities present, as shown in the diagram below. ?The ??basal anterior, basal anterolateral, basal inferoseptal, mid inferolateral, mid inferior, mid inferoseptal, apical septal, and apical lateral wall segments are hypokinetic (score 2). ?The ??basal inferolateral, and ??basal inferior wall segments are akinetic (score 3). ?Overall wallmotion score index is ??1.75 ?A false chord is observed in the left ventricle. Right Ventricle: ? Right ventricular chamber size, wall thickness, and systolic function are within normal limits. ?The estimated pulmonary artery systolic pressure is 29 mmHg.plus RAP Aortic Valve: ? The aortic valve is tricuspid. ?Mild aortic leaflet calcification is visualized. ?Systolic excursion of the aortic valve cusps is reduced. Non-coronary cusp is not opening. ?There is aortic annular calcification. ?There is no evidence of aortic valve stenosis. ?There is a trace of aortic regurgitation present. Mitral Valve: ? The mitral valve leaflets are mildly thickened. ?There is posterior mitral annular calcification. ?There is mild to moderate (1-2+/4+) mitral regurgitation present. ?The PISA radius is 0.32 cm. ?The PISA aliasing scale is 31.5 cm/sec. ?The effective regurgitant orifice area is 0.039. ?The mitral regurgitant jet is posteriorly directed. Tricuspid Valve: ? The tricuspid valve appears normal in structure and function. ?There is mild to moderate (1-2+/4+) tricuspid regurgitation present. Pericardium: ? A trivial pericardial effusion is visualized. Aorta: ? There is mild dilatation of the aortic root. ?There is mild dilatation of the ascending aorta. Misc: ? See remainder of report for additional findings. ?Two-dimensional echo, limited spectral Doppler and color Doppler performed. Chambers 2D ?Value ?Units (Range) ? IVSd (2D) ? 1.1 ?cm ? LVPWd (2D) ?1.1 ?cm ? IVS:LVPW ratio (2D) 1 ?ratio ? RWT (2D) ?0.4 ?ratio ? RWT PW (2D) ? 0.4 ?ratio ? LVIDd (2D) ?6 ?cm ? LVIDs (2D) ?4.5 ?cm ? LVIDd (2D) index ?2.7 ?cm/m2 ? LVIDs (2D) index ?2.1 ?cm/m2 ? LV FS (2D) ?24 ? % ? EF Teichholz (2D) ?? 47 ? % ? Ao root diameter (2D4 ?cm (2.1 - 3.6) ? Ascending Ao ?3.9 ?cm (2 - 3.5) ? Volumes/Mass ?Value ?Units (Range) ? LV ESV SP 4CH (MOD) 129.3 ?ml ? LV ESV SP 2CH (MOD) 76.3 ? ml ? LV EDV BP ? 234.7 ?ml ? LV ESV BP ? 102.9 ?ml ? LV EDV BP index ? 106.7 ?ml/m2 ? LV ESV BP index ? 46.8 ? ml/m2 ? BP EF (MOD) ? 56 ? % ? LV mass (2D) ?282.3 ?g ? LV mass (2D) index ??128.3 ?g/m2 ? Diastolic/Systolic Function ?Value ?Units (Range) ? MV E-wave Vmax ?1 ?m/sec ? MV deceleration ulaj701.5 ?msec ? MV A-wave Vmax ?0.3 ?m/sec ? MV E:A ratio ?2.9 ?ratio ? LV septal e' Vmax ?? 0.1 ?m/sec ? LV lateral e' Vmax ??0.1 ?m/sec ? LV average e' Vmax ??0.1 ?m/sec ? LV E:e' septal ratio8.7 ?ratio ? LV E:e' lateral rati13.6 ? ratio ? LV average E:e' rati10.6 ? ratio ? Mitral Valve ?Value ?Units (Range) ? MR volume (PISA) ?5.5 ?ml ? MR flow (PISA) ?19.8 ? ml/sec ? MR ERO ?0 ?cm2 ? MR PISA radius ?0.3 ?cm ? MR alias Vmax ? 31.5 ? cm/sec ? Tricuspid Valve ?Value ?Units (Range) ? TR Vmax ? 2.7 ?m/sec ? TR peak gradient ?29 ? mmHg ? RVSP ?29 ? mmHg ? Measurement Trending Name ? 02/07/2019 ? 02/01/2019 ? TR Vmax ?2.7 2.87 TR peak gradient ? 29 32.84 Wall Motion: Segment Name ?Rest ? Base-Anteroseptal ?? Normal ? Base-Anterior ? Hypokinetic ? Base-Anterolateral ??Hypokinetic ? Base-Posterolateral Akinetic ? Base-Inferior ? Akinetic ? Base-Inferoseptal ?? Hypokinetic ? Mid-Anteroseptal ?Normal ? Mid-Anterior ?Normal ? Mid-Anterolateral ?? Normal ? Mid-Posterolateral ??Hypokinetic ? Mid-Inferior ?Hypokinetic ? Mid-Inferoseptal ?Hypokinetic ? [place]-Septal ? Hypokinetic ? [place]-Anterior ? Normal ? [place]-Lateral ?Hypokinetic ? [place]-Inferior ? Normal ? [place]-Tip ?Normal ? This report has been electronically signed by: Ibrahima Celis MD ? 02/07/2019 16:26:11 Images reviewed and interpretation verified [facility] Cardiac Ultrasound Laboratory Procedure Note Ibrahima Celis MD - 02/07/2019 Procedure: Transthoracic Echocardiogram Patient: MABLE Gomez (Age): 1950(68y) Med Rec#: [id number] Sex: M Site Loc: [facility] [place] Ht / Wt: 180(cm)/101(kg) Pt. Loc: ICU BSA: 2.2 Study Date: 02/07/2019 Pt. Type: Inpatient Tape: Referring: JACKY Reading: Ibrahima Celis ([id number]) Geotechnical Intern: Quynh Calzada Diagnosis: *Enterococcus as the cause of diseases classified elsewhere (B95.2) *Bacteremia (R78.81) *Limited TTE today BP: 124/51 SUMMARY: 1. Limited TTE today 2. There is [...] and segmental wall motion abnomalities have improved. Findings : Study Quality: Adequate Left Ventricle: The left ventricular chamber size is normal. Borderline concentric left ventricular hypertrophy is observed. There is no evidence of LVOT obstruction. No ventricular septal defect is visualized. There is normal global left ventricular systolic function. The quantitative left ventricular ejection fraction by biplane Elizabeth's method is 56%. There are left ventricular segmental wall motion abnormalities present, as shown in the diagram below. The basal anterior, basal anterolateral, basal inferoseptal, mid inferolateral, mid inferior, mid inferoseptal, apical septal, and apical lateral wall segments are hypokinetic (score 2). The basal inferolateral, and basal inferior wall segments are akinetic (score 3). Overall wallmotion score index is 1.75 A false chord is observed in the left ventricle. Right Ventricle: Right ventricular chamber size, wall thickness, and systolic function are within normal limits. The estimated pulmonary artery systolic pressure is 29 mmHg.plus RAP Aortic Valve: The aortic valve is tricuspid. Mild aortic leaflet calcification is visualized. Systolic excursion of the aortic valve cusps is reduced. Non-coronary cusp is not opening. There is aortic annular calcification. There is no evidence of aortic valve stenosis. There is a trace of aortic regurgitation present. Mitral Valve: The mitral valve leaflets are mildly thickened. There is posterior mitral annular calcification. There is mild to moderate (1-2+/4+) mitral regurgitation present. The PISA radius is 0.32 cm. The PISA aliasing scale is 31.5 cm/sec. The effective regurgitant orifice area is 0.039. The mitral regurgitant jet is posteriorly directed. Tricuspid Valve: The tricuspid valve appears normal in structure and function. There is mild to moderate (1-2+/4+) tricuspid regurgitation present. Pericardium: A trivial pericardial effusion is visualized. Aorta: There is mild dilatation of the aortic root. There is mild dilatation of the ascending aorta. Misc: See remainder of report for additional findings. Two-dimensional echo, limited spectral Doppler and color Doppler performed. Chambers 2D Value Units (Range) IVSd (2D) 1.1 cm LVPWd (2D) 1.1 cm IVS:LVPW ratio (2D) 1 ratio RWT (2D) 0.4 ratio RWT PW (2D) 0.4 ratio LVIDd (2D) 6 cm LVIDs (2D) 4.5 cm LVIDd (2D) index 2.7 cm/m2 LVIDs (2D) index 2.1 cm/m2 LV FS (2D) 24 % EF Teichholz (2D) 47 % Ao root diameter (2D4 cm (2.1 - 3.6) Ascending Ao 3.9 cm (2 - 3.5) Volumes/Mass Value Units (Range) LV ESV SP 4CH (MOD) 129.3 ml LV ESV SP 2CH (MOD) 76.3 ml LV EDV BP 234.7 ml LV ESV BP 102.9 ml LV EDV BP index 106.7 ml/m2 LV ESV BP index 46.8 ml/m2 BP EF (MOD) 56 % LV mass (2D) 282.3 g LV mass (2D) index 128.3 g/m2 Diastolic/Systolic Function Value Units (Range) MV E-wave Vmax 1 m/sec MV deceleration idrg622.5 msec MV A-wave Vmax 0.3 m/sec MV E:A ratio 2.9 ratio LV septal e' Vmax 0.1 m/sec LV lateral e' Vmax 0.1 m/sec LV average e' Vmax 0.1 m/sec LV E:e' septal ratio8.7 ratio LV E:e' lateral rati13.6 ratio LV average E:e' rati10.6 ratio Mitral Valve Value Units (Range) MR volume (PISA) 5.5 ml MR flow (PISA) 19.8 ml/sec MR ERO 0 cm2 MR PISA radius 0.3 cm MR alias Vmax 31.5 cm/sec Tricuspid Valve Value Units (Range) TR Vmax 2.7 m/sec TR peak gradient 29 mmHg RVSP 29 mmHg Measurement Trending Name 02/07/2019 02/01/2019 TR Vmax 2.7 2.87 TR peak gradient 29 32.84 Wall Motion: Segment Name Rest Base-Anteroseptal Normal Base-Anterior Hypokinetic Base-Anterolateral Hypokinetic Base-Posterolateral Akinetic Base-Inferior Akinetic Base-Inferoseptal Hypokinetic Mid-Anteroseptal Normal Mid-Anterior Normal Mid-Anterolateral Normal Mid-Posterolateral Hypokinetic Mid-Inferior Hypokinetic Mid-Inferoseptal Hypokinetic [place]-Septal Hypokinetic [place]-Anterior Normal [place]-Lateral Hypokinetic [place]-Inferior Normal [place]-Tip Normal This report has been electronically signed by: Ibrahima Celis MD 02/07/2019 16:26:11 Images reviewed and interpretation verified [facility]ound [facility] Danny Hicks MD ECHO ORDERABLES * US Renal Transplant Left (02/07/2019 2:15 PM EDT) Anatomical Region Laterality Modality Abdomen Left Ultrasound 02/07/2019 2:19 PM EDT Impressions 02/07/2019 2:48 PM EDT ?? The LEFT renal transplant is slightly enlarged compared to prior study. Renal vein and artery are patent with normal waveforms. The resistive indices are slightly increased at 0.62-0.82 relative to the prior study. No hydronephrosis or perinephric collections Thank you for letting us participate in the care of this patient. For questions regarding this report, please contact the number below. ? Preeti Holloway, Staff Physician Electronically Signed Final Report ?? 02/07/2019 02:48 pm Narrative 02/07/2019 2:48 PM EDT Transplant ?(Signed Final 02/07/2019 02:48 pm) PATIENT INFO: ID #: ? [id number] ? : [birth year] (68 yrs) Name: ? ETHEL BOLDEN ? Visit Date:02/07/2019 02:19 pm PERFORMED BY: Performed By: ? Karly Castillo RDMS Attending: ?Jewel GERBER, Preeti Sanford Referred By: ?TRENA STODDARD Location: ? [place] SERVICE(S) PROVIDED: ??URTPL - Renal Transplant - Left - [id number] ?[id number] INDICATIONS: ??pt with hx of renal transplant and RAY for re-eval of ??transplant flow COMPARISON: Ultrasound: 01/31/19 RENAL ALLOGRAFT: Size (cm) ? L: 14.2 Cortical Thickness: ?Normal Corticomedullary Differention: Normal Echogenicity: ?Normal Perinephric Fluid/Collections: No collection identified RENAL TRANSPLANT DUPLEX: LEFT Main Renal ? PSV ? EDV ?RIR ??Waveform ?Artery ?(cm/s) ??(cm/s) Proximal: ?61.5 ? 8.2 ?0.9 Patent Distal: ?57.1 ?13.7 ?0.8 Patent LEFT Main Renal ? Waveform ? Vein Proximal: ?Patent Distal: ?Patent URINARY BLADDER: Pre-void (cm) ?L: 10.1 ?AP: ??5.3 ? TV: ??7.5 Vol (ml): ?210.2 Comment: ?Not distended. ??Whaley Catheter present. Procedure Note Preeti Holloway MD - 02/07/2019 Transplant (Signed Final 02/07/2019 02:48pm) PATIENT INFO: ID #: [id number] : [birth year] (68 yrs) Name: ETHEL BOLDEN Visit Date:02/07/2019 02:19 pm PERFORMED BY: Performed By: Karly Castillo RDMS Attending: Preeti Holloway MD Referred By: TRENA STODDARD Location: [place] SERVICE(S) PROVIDED: URTPL - Renal Transplant - Left - [id number] INDICATIONS: pt with hx of renal transplant and RAY for re-eval of transplant flow COMPARISON: Ultrasound: 01/31/19 RENAL ALLOGRAFT: Size (cm) L: 14.2 Cortical Thickness: Normal Corticomedullary Differention: Normal Echogenicity: Normal Perinephric Fluid/Collections: No collection identified RENAL TRANSPLANT DUPLEX: LEFT Main Renal PSV EDV RIR Waveform Artery (cm/s) (cm/s) Proximal: 61.5 8.2 0.9 Patent Distal: 57.1 13.7 0.8 Patent LEFT Main Renal Waveform Vein Proximal: Patent Distal: Patent URINARY BLADDER: Pre-void (cm) L: 10.1 AP: 5.3 TV: 7.5 Vol (ml): 210.2 Comment: Not distended. Whaley Catheter present. IMPRESSION The LEFT renal transplant is slightly enlarged compared to prior study. Renal vein and artery are patent with normal waveforms. The resistive indices are slightly increased at 0.62-0.82 relative to the prior study. No hydronephrosis or perinephric collections Thank you for letting us participate in the care of this patient. For questions regarding this report, please contact the number below. Preeti Holloway, Staff Physician Electronically Signed Final Report 02/07/2019 02:48 pm Trena Stoddard MD IMG GEN ORDERABLE S * Blood culture (02/07/2019 12:55 PM EDT) Pathologist [facility] Blood Culture No growth at 5 days. [facility] Blood specimen (specimen) STRUCTURE OF RIGHT FOOT / Unknown 02/07/2019 12:55 PM EDT 02/07/2019 1:57 PM EDT Narrative Resulting Agency Comment Spec In Lab Danny Hicks MD MICROBIOLOGY - BLOOD ORDERABLES [facility] [place] [address] * POCT Glucose (02/07/2019 12:13 PM EDT) Glucose, POC 151 65 - 199 mg/dL [facility] Comment: Supplemental ranges: <140 mg/dL before meals <180 mg/dL all other times of the day Blood specimen (specimen) 02/07/2019 12:13 PM EDT 02/07/2019 12:13 PM EDT Trena Stoddard MD POINT OF CARE TEST O RDERABLES [facility] [place] [address] * (ABNORMAL) Differential, Automated (02/07/2019 10:30 AM EDT) Neutrophil % 87.2 % [facility] Neutrophil Absolute 12.33(H) 1.70 - 6.10 x10(3)/mc L [facility] Lymph % 3.3 % [facility] Lymphocytes Abs 0.5(L) 0.9 - 3.2 x10(3)/[facility] Monocyte % 8.9 % [facility] Monocyte Abs 1.3(H) 0.3 - 0.9 x10(3)/[facility] Eos % 0.0 % [facility] Eosinophils Abs 0.0 0.0 - 0.4 x10(3)/[facility] Basophil % 0.2 % [facility] Baso Absolute 0.0 0.0 - 0.1 x10(3)/mc L [facility] Immature Gran % 0.40 % [facility] Comment: Immature granulocytes(IG's)percentage and absolute count will include metamyelocytes, myelocytes, and promyelocytes. Blood smears from CBCs yielding IG's will be scanned manually for concordance. If this scan disagrees with the automated IG or if promyelocytes are noted, a manual differential will be performed. Immature Gran Absolute 0.06(H) 0.00 - 0.04 x10(3)/ L [facility] Blood specimen (specimen) 02/07/2019 10:30 AM EDT 02/07/2019 10:40 AM EDT Narrative Resulting Agency Comment Spec In Lab Danny Hicks MD HEMATOLOGY ORDERABLE S Performing Organization Address City/[facility]/ZIP Co de Phone Number [facility] [place] [address] * (ABNORMAL) Hemogram (02/07/2019 10:30 AM EDT) [facility] White Blood Cell 14.2(H) 4.0 - 9.5 x10(3)/ L [facility] Red Blood Cell 4.76 4.58 - 5.54 x10(6)/ L [facility] Hemoglobin 14.6 13.7 - 16.5 gm/dL [facility] Hematocrit 42.7 40.5 - 48.5 % [facility] Mean Cell Volume 89.7 82.9 - 93.1 fL [facility] Mean Cell Hemoglobin 30.7 27.5 - 32.1 pg [facility] Mean Cell Hemoglobin Concentration 34.2 32.0 - 35.7 gm/dL [facility] Platelet 245 145 - 357 x10(3)/[facility] RDW Standard Deviation 44.1 36.0 - 45.0 [facility] RDW coefficient of variation 13.4 11.4 - 13.8 % [facility] Mean Platelet Volume 9.2 7.6 - 12.9 fL [facility] NRBC% auto 0.0 % [facility] NRBC Absolute 0.000 0.000 - 0.000 x10(3)/[facility] Blood specimen (specimen) 02/07/2019 10:30 AM EDT 02/07/2019 10:40 AM EDT Narrative Resulting Agency Comment Spec In Lab Danny Hicks MD HEMATOLOGY ORDERABLE S [facility] [place] [address] * IgG (02/07/2019 10:30 AM EDT) [facility] Immunoglobulin G 884 700 - 1,600 mg/dL [facility] Comment: Pediatric Reference Intervals obtained from the Caliper Reference Interval project. http://www.sickkids.ca/caliperproject/index.html Blood specimen (specimen) 02/07/2019 10:30 AM EDT 02/07/2019 10:40 AM EDT Narrative Resulting Agency Comment Spec In Lab Danny Hicks MD CHEMISTRY ORDERABLES Performing Organization Address [facility] Co de Phone Number [facility] [place] [address] * (ABNORMAL) CD19 (02/07/2019 10:30 AM EDT) [facility] CD19% 13 6 - 23 % [facility] CD19 ABS 62(L) 99 - 473 /[facility] Comment: This assay is a dual platform determination. ??The PERCENTAGE of lymphocytes bearing the CD19 is determined using flow cytometry immunophenotyping. ??The ABSOULTE COUNT of [id number] is determined by multiplying the percentages by the absolute lymphocyte count obtained from the concurrent CBC. The displayed reference range is derived by assaying the general reference population, regardless of gender, but aged between 16 and 70 years of age. ??For individuals less than 16, pediatric reference ranges are derived from the literature [Journal of Pediatrics 1997 Sep;130(3):388-393]. White Blood Cell 14.2(H) 4.0 - 9.5 x10(3)/[facility] Lymph % 3.3 % [facility] Lymphocytes Abs 0.5(L) 0.9 - 3.2 x10(3)/[facility] Blood specimen (specimen) 02/07/2019 10:30 AM EDT 02/07/2019 10:40 AM EDT Narrative Resulting Agency Comment Spec In Lab Danny Hicks MD HEMATOLOGY ORDERABLE S Performing Organization Address [facility]/ZIP Co de Phone Number [facility] [place] [address] * (ABNORMAL) CD4+8 (02/07/2019 10:30 AM EDT) CD3% 77 55 - 82 % [facility] CD3 ABS 361(L) 731 - 2,438 /[facility] LABORATORY CD4% 53 35 - 61 % [facility] CD4 ABS 250(L) 503 - 1,736 /[facility] CD8% 23 12 - 38 % [facility] CD8 ABS 108(L) 162 - 1,026 /[facility] Comment: This assay is a dual platform determination. ??The PERCENTAGE of lymphocytes bearing the CD3, CD4 and CD8 antigens is determined using flow cytometry immunophenotyping. ??The ABSOULTE COUNT of CD3-, CD4- ??and CD8-lymphocytes is determined by multiplying the percentages by the absolute lymphocyte count obtained from the concurrent CBC. The displayed reference ranges are derived by assaying the general reference population, regardless of gender, but aged between 16 and 70 years of age. ??For individuals less than 16, pediatric reference ranges are derived from the literature [Journal of Pediatrics 1997 Sep;130(3):388-393]. CD4:8 Ratio 2.31 1.09 - 4.26 ratio [facility] White Blood Cell 14.2(H) 4.0 - 9.5 x10(3)/[facility] LABORAT[facility] Lymph % 3.3 % [facility] Lymphocytes Abs 0.5(L) 0.9 - 3.2 x10(3)/[facility] LABORAT[facility] Blood specimen (specimen) 02/07/2019 10:30 AM EDT 02/07/2019 10:40 AM EDT Narrative Resulting Agency Comment Spec In Lab Danny Hicks MD HEMATOLOGY ORDERABLE S [facility] [place] [address] * POCT Glucose (02/07/2019 8:01 AM EDT) Glucose, POC 126 65 - 199 mg/dL [facility] Comment: Supplemental ranges: <140 mg/dL before meals <180 mg/dL all other times of the day Blood specimen (specimen) 02/07/2019 8:01 AM EDT 02/07/2019 8:01 AM EDT Trena Stoddard MD POINT OF CARE TEST O RDERABLES Performing Organization Address [facility] Co de Phone Number [facility] [place] [address] * EKG 12 Lead (02/07/2019 6:40 AM EDT) Ventricular rate 62 BPM MUSE SYSTEM Atrial Rate 52 BPM MUSE SYSTEM P-R Interval 184 ms MUSE SYSTEM QRS Duration 106 ms MUSE SYSTEM Q-T Interval 452 ms MUSE SYSTEM QTC Calculated (Bezet) 458 ms MUSE SYSTEM Calculated P [place] 52 degrees MUSE SYSTEM Calculated R [place] -76 degrees MUSE SYSTEM Calculated T [place] -27 degrees MUSE SYSTEM INTERPRETATION Sinus bradycardia with Premature supraventricular complexes Left anterior fascicular block T wave abnormality, consider inferior ischemia Abnormal ECG When compared with ECG of 06-FEB-2019 23:20, Premature ventricular complexes are no longer Present Confirmed by MD Yoselin, [facility] ([id number]) on 02/08/2019 9:38:37 AM MUSE SYSTEM 02/07/2019 6:40 AM EDT 02/08/2019 9:38 AM EDT Trena Stoddard MD ECG ORDERABLES Performing Organization Address [facility] Co de Phone Number MUSE SYSTEM * Tacrolimus level (02/07/2019 6:30 AM EDT) Tacrolimus 4.4 ng/mL [facility] Comment: Trough therapeutic: ??5-15 ng/mL Performed by ultra-performance liquid chromatography tandem mass spectrometry (UPLCMS/MS). This test was developed and its performance characteristics determined by [facility]. It has not been cleared or approved by the FDA. The laboratory is regulated under CLIA as qualified to perform high-complexity testing. This test is used for clinical purposes. It should not be regarded as investigational or for research. Blood specimen (specimen) 02/07/2019 6:30 AM EDT 02/07/2019 7:23 AM EDT Narrative Resulting Agency Comment Spec In Lab Trena Stoddard MD CHEMISTRY ORDERABLES Performing Organization Address [facility] Co de Phone Number [facility] [place] [address] * POCT Glucose (02/07/2019 3:27 AM EDT) [facility] Glucose, POC 141 65 - 199 mg/dL [facility] Comment: Supplemental ranges: <140 mg/dL before meals <180 mg/dL all other times of the day Blood specimen (specimen) 02/07/2019 3:27 AM EDT 02/07/2019 3:27 AM EDT Alessandro Limon DO POINT OF CARE TEST O RDERABLES Performing Organization Address [facility] Co de Phone Number [facility] [place] [address] * Scan, Peripheral Blood (02/07/2019 1:50 AM EDT) [facility] Plat estimate Normal [facility] RBC Morphology Abnormal [facility] Ovalocytes 1-5 /HPF [facility] Rayle Cells 1-5 /HPF [facility] Blood specimen (specimen) 02/07/2019 1:50 AM EDT 02/07/2019 1:57 AM EDT Narrative Resulting Agency Comment Spec In Lab Trena Stoddard MD HEMATOLOGY ORDERABLE S Performing Organization Address [facility] Co de Phone Number [facility] [place] [address] * (ABNORMAL) Differential, Automated (02/07/2019 1:50 AM EDT) [facility] Neutrophil % 84.1 % [facility] Neutrophil Absolute 16.55(H) 1.70 - 6.10 x10(3)/[facility] LABORATORY Lymph % 5.2 % [facility] Lymphocytes Abs 1.0 0.9 - 3.2 x10(3)/[facility] LAB[facility] Monocyte % 10.0 % [facility] Monocyte Abs 2.0(H) 0.3 - 0.9 x10(3)/[facility] LAB[facility] Eos % 0.0 % [facility] Eosinophils Abs 0.0 0.0 - 0.4 x10(3)/[facility] Basophil % 0.2 % [facility] Baso Absolute 0.0 0.0 - 0.1 x10(3)/[facility] Immature Gran % 0.50 % [facility] Comment: Immature granulocytes(IG's)percentage and absolute count will include metamyelocytes, myelocytes, and promyelocytes. Blood smears from CBCs yielding IG's will be scanned manually for concordance. If this scan disagrees with the automated IG or if promyelocytes are noted, a manual differential will be performed. Immature Gran Absolute 0.10(H) 0.00 - 0.04 x10(3)/[facility] LAB[facility] Blood specimen (specimen) 02/07/2019 1:50 AM EDT 02/07/2019 1:57 AM EDT Narrative Resulting Agency Comment Spec In Lab Trena Stoddard MD HEMATOLOGY ORDERABLE S [facility] [place] [address] * (ABNORMAL) Hemogram (02/07/2019 1:50 AM EDT) White Blood Cell 19.7(H) 4.0 - 9.5 x10(3)/[facility] Red Blood Cell 5.08 4.58 - 5.54 x10(6)/[facility] Hemoglobin 15.8 13.7 - 16.5 gm/dL [facility] Hematocrit 46.6 40.5 - 48.5 % [facility] Mean Cell Volume 91.7 82.9 - 93.1 fL [facility] Mean Cell Hemoglobin 31.1 27.5 - 32.1 pg [facility] Mean Cell Hemoglobin Concentration 33.9 32.0 - 35.7 gm/dL [facility] Platelet 260 145 - 357 x10(3)/mc L [facility] RDW Standard Deviation 45.6(H) 36.0 - 45.0 fL [facility] RDW coefficient of variation 13.6 11.4 - 13.8 % [facility] Mean Platelet Volume 9.1 7.6 - 12.9 fL [facility] NRBC% auto 0.0 % [facility] NRBC Absolute 0.000 0.000 - 0.000 x10(3)/mc L [facility] Blood specimen (specimen) 02/07/2019 1:50 AM EDT 02/07/2019 1:57 AM EDT Narrative Resulting Agency Comment Spec In Lab Trena Stoddard MD HEMATOLOGY ORDERABLE S [facility] [place] [address] * (ABNORMAL) Troponin (02/07/2019 1:50 AM EDT) Troponin-T 0.05(H) 0.00 - 0.00 ng/mL [facility] Comment: The 99th percentile for Troponin T is less than 0.01 ng/mL, any detectable cTnT concentration using this assay should be considered elevated. According to the third universal definition of myocardial infarction the following criteria with a clinical presentation consistent with acute myocardial ischemia meets the diagnosis for a myocardial infarction ([place]). Detection of a rise and/or fall of cTnT, with at least one value greater than the 99th percentile (> or = 0.01) and with at least one of the following ?? Symptoms of ischemia ?? New or presumed new significant CU-zjqyqxx-D wave (ST-T) changes or new left bundle branch block (LBBB) ?? Development of pathologic Q waves in the ECG ?? Imaging evidence of new loss of viable myocardium or new regional wall motion abnormality ?? Identification of an intracoronary thrombus by angiography or autopsy Samples for cTnT testing should be obtained serially upon first assessment and again 3 to 6 hours later. If the clinical suspicion is high and previous samples have been negative an additional sample may be indicated. Reference: Third [place] Definition of Myocardial Infarction. Journal of the [place] [employer] 2012;60:1581-98 Blood specimen (specimen) 02/07/2019 1:50 AM EDT 02/07/2019 1:57 AM EDT Narrative Resulting Agency Comment Spec In Lab Trena Stoddard MD CHEMISTRY ORDERABLES Performing Organization Address [facility] Co de Phone Number [facility] [place] [address] * (ABNORMAL) Magnesium (02/07/2019 1:50 AM EDT) Magnesium 0.59(L) 0.69 - 1.07 mmol/L [facility] Blood specimen (specimen) 02/07/2019 1:50 AM EDT 02/07/2019 1:57 AM EDT Narrative Resulting Agency Comment Spec In Lab Trena Stoddard MD CHEMISTRY ORDERABLES Performing Organization Address [facility] Co de Phone Number [facility] [place] [address] * (ABNORMAL) Basic Metabolic Panel (non-fasting) (02/07/2019 1:50 AM EDT) Glucose 145 65 - 199 mg/dL [facility] Comment:Diabetes: >=200 mg/d L plus symptoms Blood Urea Nitrogen 26(H) 10 - 20 mg/dL [facility] Creatinine 1.82(H) 0.80 - 1.50 mg/dL [facility] Sodium 133(L) 135 - 145 mmol/L [facility] Potassium 4.7 3.5 - 5.0 mmol/L [facility] Comment: result rechecked- Please note: ??Patients with WBC >100,000 may have falsely elevated Potassium levels. ??For accurate Potassium quantification in these patients send serum separator tube (gold top) for subsequent determinations. ??Contact the Clinical Chemistry Laboratory if there are any questions. Chloride 94(L) 98 - 107 mmol/L [facility] Carbon Dioxide 25 22 - 31 mmol/L [facility] Anion Gap 14 5 - 15 mmol/L [facility] Calcium 9.0 8.5 - 10.5 mg/dL [facility] Est Glomerular Filtration Rate 37(L) >=60 mL/min/1. 73 m?? [facility] Comment: The eGFR was calculated using the CKD-EPI equation. As with all creatinine based estimates of kidney function, eGFR values calculated with the CKD-EPI equation are not accurate in patients with acute kidney failure, extremes of body mass or the acutely ill. http://[employer]/[facility]Enkf eGFR 43(L) >=60 mL/min/1. 73 m?? [facility] Comment: The eGFR was calculated using the CKD-EPI equation. As with all creatinine based estimates of kidney function, eGFR values calculated with the CKD-EPI equation are not accurate in patients with acute kidney failure, extremes of body mass or the acutely ill. http://[employer]/[facility] Blood specimen (specimen) 02/07/2019 1:50 AM EDT 02/07/2019 1:57 AM EDT Narrative Resulting Agency Comment Spec In Lab Trena Stoddard MD CHEMISTRY ORDERABLES [facility] [place] [address] * Smear Review Report (02/07/2019 1:50 AM EDT) Smear Review Report [id number] ? Location: ICUS; IC06; A The signing pathologist has (i) examined the relevant preparation(s) for the specimen(s) and (ii) rendered or confirmed the diagnosis(es). . ? Smear Review DIAGNOSIS PERIPHERAL BLOOD, SMEAR: Absolute neutrophilia and monocytosis (see discussion) Electronically signed by: ??Shin Murray MD Verified: ??02/07/2019 ?Hematopathologist Performed at: ??-[facility] Dept. of Pathology, [place], [place] DISCUSSION The leukocytosis and morphologic findings are nonspecific, but are likely reactive to the ongoing acute medical issues. ADDITIONAL STUDIES WBC 19.7K/uL, RBC 5.1M/uL, HGB 15.8g/dL, MCV 91.7fL, RDW 13.6%, PLT 260K/uL The peripheral smear shows normochromic normocytic erythrocytes without significant anemia. Anisopoikilocytosis and polychromasia are not significantly increased. The white cell count is increased due to an absolute neutrophilia (16.55 ? K/uL) and monocytosis (2.0 K/uL). The neutrophils are mostly mature and without significant left-shift, and a few hyperlobated forms are seen. Remaining leukocyte morphology is generally unremarkable. The platelet counts and morphology are normal, but a few small platelet clumps are seen. CLINICAL INFORMATION A 68 year old man for whom smear review was requested internally by the laboratory for atypical leukocyte morphology review. The patient is admitted for fever in the setting of immunosuppression, RAY, and hypoxia; in the setting of a recent NSTEMI s/p PCI with A-flutter/RVR, hypoxic respiratory failure, and heart failure exacerbation. The clinical history is also significant for HCV treated with Ledipasvir-sofosbuvir, DM, HTN, and kidney transplant (09/16/2015). [facility] 02/07/2019 1:50 AM EDT Trena Stoddard MD HEMATOLOGY ORDERABLE S Performing Organization Address [facility]/ZIP Co de Phone Number [facility] [place] [address] * Urea nitrogen, urine, random (02/07/2019 12:56 AM EDT) Urea Nitrogen, Urine 831 mg/dL [facility] Urine specimen (specimen) Urine / Unknown 02/07/2019 12:56 AM EDT 02/07/2019 6:10 AM EDT Narrative Resulting Agency Comment Spec In Lab Trena Stoddard MD URINE ORDERABLES Performing Organization Address [facility] Co de Phone Number [facility] [place] [address] * Legionella Urinary Antigen (02/07/2019 12:56 AM EDT) Legionella Urinary Antigen Negative Negative [facility] Comment: A negative Legionella Urinary Antigen by EIA suggests no recent or current infection with L. pneumophila Serogroup 1. Antigen may not be present in urine in early infection, and the level of antigen present in the urine may be below the detection limit of the test. Sensitivity: 95% Specificity 95%. Urine specimen (specimen) 02/07/2019 12:56 AM EDT 02/07/2019 7:18 AM EDT Narrative Resulting Agency Comment Spec In Lab Trena Stoddard MD MICROBIOLOGY - GENER AL ORDERABLES Performing Organization Address [facility]/ZIP Co de Phone Number [facility] [place] [address] * (ABNORMAL) Urine culture (02/07/2019 12:55 AM EDT) Urine Culture 1,000-9,000 cfu/ml Enterococcus faecalis(A) [facility] Organism Enterococcus faecalis(A) [facility] Urine specimen obtained via straight catheter (specimen) 02/07/2019 12:55 AM EDT 02/07/2019 7:27 AM EDT Narrative Resulting Agency Comment Spec In Lab Organism Antibiotic Method Susceptibility Enterococcus faecalis Ampicillin VITEK 2 METHOD Sensitive Enterococcus faecalis Ciprofloxacin VITEK 2 METHOD Sensitive Enterococcus faecalis Levofloxacin VITEK 2 METHOD Sensitive Enterococcus faecalis Nitrofurantoin VITEK 2 METHOD Sensitive Enterococcus faecalis Penicillin VITEK 2 METHOD Sensitive Enterococcus faecalis Vancomycin VITEK 2 METHOD Sensitive Trena Stoddard MD MICROBIOLOGY - GENER AL ORDERABLES Performing Organization Address [facility] Co de Phone Number [facility] [place] [address] * (ABNORMAL) Urinalysis Microscopic Exam (02/07/2019 12:55 AM EDT) RBC, Urine 9(H) 0 - 3 /HPF [facility] WBC, Urine 22(H) 0 - 3 /HPF [facility] Bacteria, Urine Rare(A) None /HPF [facility] Granular Casts, Urine 2(H) <=0 /LPF [facility] Urine specimen obtained via straight catheter (specimen) 02/07/2019 12:55 AM EDT 02/07/2019 1:31 AM EDT Narrative Resulting Agency Comment Spec In Lab Trena Stoddard MD URINE ORDERABLES Performing Organization Address [facility] de Phone Number [facility] [place] [address] * Creatinine, urine, random (02/07/2019 12:55 AM EDT) Creatinine, Urine 174 mg/dL [facility] Urine specimen (specimen) 02/07/2019 12:55 AM EDT 02/07/2019 1:31 AM EDT Narrative Resulting Agency Comment Spec In Lab Trena Stoddard MD URINE ORDERABLES Performing Organization Address [facility] de Phone Number [facility] [place] [address] * Electrolytes, urine, random (02/07/2019 12:55 AM EDT) Sodium, Urine 28 mmol/L [facility] Potassium, Urine 78 mmol/L [facility] Chloride, Urine 33 mmol/L [facility] Urine specimen (specimen) 02/07/2019 12:55 AM EDT 02/07/2019 1:31 AM EDT Narrative Resulting Agency Comment Spec In Lab Trena Stoddard MD URINE ORDERABLES [facility] [place] [address] * (ABNORMAL) Urinalysis with reflex Culture (02/07/2019 12:55 AM EDT) Glucose, Urine Dipstick Negative Negative mg/dL [facility] Protein, Urine Dipstick 100(A) Negative mg/dL [facility] Bilirubin, Urine Dipstick Negative Negative mg/dL [facility] Comment: Clinical correlation required for positive Urine Bilirubin results as false positive may occur with some drugs and drug related products. If a false positive is suspected a serum total bilirubin should be considered if clinically indicated. Urobilinogen, Urine Dipstick Normal Normal mg/dL [facility] pH, Urn (dipstick) 5.0 5.0 - 8.0 [facility] Blood, Urine Dipstick Negative Negative mg/dL [facility] Ketone, Urine Dipstick Negative Negative mg/dL [facility] Nitrite, Urine Dipstick Negative Negative [facility] Leukocytes, Urine Dipstick Negative Negative [facility] Appearance, Urine Dipstick Clear Clear [facility] Specific [place] Urine Automated 1.023 1.002 - 1.030 [facility] Color, Urine Dipstick Yellow Yellow [facility] Reflex to Culture Yes [facility] Urine specimen obtained via straight catheter (specimen) 02/07/2019 12:55 AM EDT 02/07/2019 1:31 AM EDT Narrative Resulting Agency Comment Spec In Lab Trena Stoddard MD URINE ORDERABLES Performing Organization Address [facility] Co de Phone Number [facility] [place] [address] * POCT Glucose (02/07/2019 12:27 AM EDT) Glucose, POC 183 65 - 199 mg/dL [facility] Comment: Supplemental ranges: <140 mg/dL before meals <180 mg/dL all other times of the day Blood specimen (specimen) 02/07/2019 12:27 AM EDT 02/07/2019 12:27 AM EDT Alessandro Lmion DO POINT OF CARE TEST O RDERABLES Performing Organization Address [facility] Co de Phone Number [facility] [place] [address] * XR Chest One View (02/06/2019 11:52 PM EDT) Anatomical Region Laterality Modality Chest N/A Digital Radiogra phy Impressions 02/07/2019 12:02 AM EDT Cardiomegaly with pulmonary edema Thank you for letting us participate in the care of this patient. For questions regarding this report, please contact the number below. ? Narrative 02/07/2019 12:02 AM EDT EXAMINATION: XR CHEST ONE VIEW CLINICAL HISTORY: pt with hx of CHF with hypoxia TECHNIQUE: 1 view of the chest COMPARISON: Radiograph dated 02/02/2019 FINDINGS: Patchy opacities are seen in the bilateral lungs. The heart is enlarged. Atelectasis is present at the lower lobes bilaterally. No pneumothorax. The osseous structures are unchanged. Again seen is an 11 mm hypodensity in the right proximal humerus which has a benign appearance. Procedure Note Franca Francisco MD - 02/07/2019 EXAMINATION: XR CHEST ONE VIEW CLINICAL HISTORY: pt with hx of CHF with hypoxia TECHNIQUE: 1 view of the chest COMPARISON: Radiograph dated 02/02/2019 FINDINGS: Patchy opacities are seen in the bilateral lungs. The heart is enlarged. Atelectasis is present at the lower lobes bilaterally. No pneumothorax.The osseous structures are unchanged. Again seen is an 11 mm hypodensity inthe right proximal humerus which has a benign appearance. IMPRESSION Cardiomegaly with pulmonary edema Thank you for letting us participate in the care of this patient. Forquestions regarding this report, please contact the number below. Trena Stoddard MD IMG DX ORDERABLES * EKG 12 Lead (02/06/2019 11:20 PM EDT) Ventricular rate 63 BPM MUSE SYSTEM Atrial Rate 90 BPM MUSE SYSTEM P-R Interval 192 ms MUSE SYSTEM QRS Duration 106 ms MUSE SYSTEM Q-T Interval 484 ms MUSE SYSTEM QTC Calculated (Bezet) 495 ms MUSE SYSTEM Calculated R [place] -55 degrees MUSE SYSTEM Calculated T [place] -61 degrees MUSE SYSTEM INTERPRETATION Sinus rhythm with Premature atrial complexes Premature ventricular complexes Left anterior fascicular block Nonspecific T wave abnormality Prolonged QT Abnormal ECG When compared with ECG of 02-FEB-2019 19:26, T wave inversion now evident in Lateral leads Confirmed by MD Yoselin, [facility] ([id number]) on 02/07/2019 10:22:06 AM MUSE SYSTEM 02/06/2019 11:2 0 PM EDT 02/07/2019 10:22 AM EDT Trena Stoddard MD ECG ORDERABLES MUSE SYSTEM * (ABNORMAL) Troponin (02/06/2019 11:10 PM EDT) Troponin-T 0.05(H) 0.00 - 0.00 ng/mL [facility] Comment: The 99th percentile for Troponin T is less than 0.01 ng/mL, any detectable cTnT concentration using this assay should be considered elevated. According to the third universal definition of myocardial infarction the following criteria with a clinical presentation consistent with acute myocardial ischemia meets the diagnosis for a myocardial infarction ([place]). Detection of a rise and/or fall of cTnT, with at least one value greater than the 99th percentile (> or = 0.01) and with at least one of the following ?? Symptoms of ischemia ?? New or presumed new significant GR-vxpfidd-I wave (ST-T) changes or new left bundle branch block (LBBB) ?? Development of pathologic Q waves in the ECG ?? Imaging evidence of new loss of viable myocardium or new regional wall motion abnormality ?? Identification of an intracoronary thrombus by angiography or autopsy Samples for cTnT testing should be obtained serially upon first assessment and again 3 to 6 hours later. If the clinical suspicion is high and previous samples have been negative an additional sample may be indicated. Reference: Third [place] Definition of Myocardial Infarction. Journal of the [place] [employer] 2012;60:1581-98 Blood specimen (specimen) 02/06/2019 11:10 PM EDT 02/06/2019 11:21 PM EDT Narrative Resulting Agency Comment Spec In Lab Trena Stoddard MD CHEMISTRY ORDERABLES [facility] [place] [address] * (ABNORMAL) Differential, Automated (02/06/2019 11:10 PM EDT) Neutrophil % 86.6 % [facility] Neutrophil Absolute 12.13(H) 1.70 - 6.10 x10(3)/mc L [facility] Lymph % 3.9 % [facility] Lymphocytes Abs 0.5(L) 0.9 - 3.2 x10(3)/[facility] Monocyte % 8.9 % [facility] Monocyte Abs 1.2(H) 0.3 - 0.9 x10(3)/[facility] LAB[facility] Eos % 0.0 % [facility] Eosinophils Abs 0.0 0.0 - 0.4 x10(3)/[facility] LAB[facility] Basophil % 0.2 % [facility] Baso Absolute 0.0 0.0 - 0.1 x10(3)/[facility] LAB[facility] Immature Gran % 0.40 % [facility] Comment: Immature granulocytes(IG's)percentage and absolute count will include metamyelocytes, myelocytes, and promyelocytes. Blood smears from CBCs yielding IG's will be scanned manually for concordance. If this scan disagrees with the automated IG or if promyelocytes are noted, a manual differential will be performed. Immature Gran Absolute 0.06(H) 0.00 - 0.04 x10(3)/[facility] LAB[facility]ORY Blood specimen (specimen) 02/06/2019 11:10 PM EDT 02/06/2019 11:21 PM EDT Narrative Resulting Agency Comment Spec In Lab Trena Stoddard MD HEMATOLOGY ORDERABLE S [facility] [place] [address] * (ABNORMAL) Hemogram (02/06/2019 11:10 PM EDT) White Blood Cell 14.0(H) 4.0 - 9.5 x10(3)/[facility] LAB[facility] Red Blood Cell 4.51(L) 4.58 - 5.54 x10(6)/[facility] Hemoglobin 13.9 13.7 - 16.5 gm/dL [facility] Hematocrit 40.5 40.5 - 48.5 % [facility] Mean Cell Volume 89.8 82.9 - 93.1 fL [facility] Mean Cell Hemoglobin 30.8 27.5 - 32.1 pg [facility] Mean Cell Hemoglobin Concentration 34.3 32.0 - 35.7 gm/dL [facility] Platelet 238 145 - 357 x10(3)/mc L [facility] RDW Standard Deviation 44.2 36.0 - 45.0 fL [facility] RDW coefficient of variation 13.6 11.4 - 13.8 % [facility] Mean Platelet Volume 9.4 7.6 - 12.9 [facility] NRBC% auto 0.0 % [facility] NRBC Absolute 0.000 0.000 - 0.000 x10(3)/mc L [facility] Blood specimen (specimen) 02/06/2019 11:10 PM EDT 02/06/2019 11:21 PM EDT Narrative Resulting Agency Comment Spec In Lab Trena Stoddard MD HEMATOLOGY ORDERABLE S [facility] [place] [address] * Lactate, whole blood, send to lab (Leb/CGP) (02/06/2019 11:10 PM EDT) Lactate WB 1.8 0.5 - 2.2 mmol/L [facility] Blood specimen (specimen) 02/06/2019 11:10 PM EDT 02/06/2019 11:18 PM EDT Narrative Resulting Agency Comment Spec In Lab Trena Stoddard MD CHEMISTRY ORDERABLES [facility] [place] [address] * Blood culture (02/06/2019 11:10 PM EDT) Blood Culture No growth at 5 days. [facility] Blood specimen (specimen) STRUCTURE OF RIGHT UPPER LIMB / Unknown 02/06/2019 11:10 PM EDT 02/07/2019 12:08 AM EDT Narrative Resulting Agency Comment Spec In Lab Trena Stoddard MD MICROBIOLOGY - BLOOD ORDERABLES Performing Organization Address [facility] Co de Phone Number [facility] [place] [address] * (ABNORMAL) Prothrombin Time (02/06/2019 11:10 PM EDT) Prothrombin Time 23.5(H) 9.4 - 12.5 sec [facility] International Normalization Ratio 2.0 [facility] Comment: An INR <2.0 [...] depending on clinical circumstances. Blood specimen (specimen) 02/06/2019 11:10 PM EDT 02/06/2019 11:21 PM EDT Narrative Resulting Agency Comment Spec In Lab Trena Stoddard MD HEMATOLOGY ORDERABLE S Performing Organization Address City/[facility] Co de Phone Number [facility] [place] [address] * (ABNORMAL) Hepatic Function Panel (02/06/2019 11:10 PM EDT) Protein, Total 6.6 6.1 - 8.0 gm/dL [facility] Albumin 3.3 3.2 - 5.2 gm/dL [facility] Aspartate Aminotransferase 17 0 - 39 unit/L [facility] Alanine Aminotransferase 15 0 - 55 unit/L [facility] Alkaline Phosphatase 47 40 - 130 unit/L [facility] Bilirubin, Total 2.2(H) 0.2 - 1.3 mg/dL [facility] Bilirubin, Direct 0.3 0.0 - 0.3 mg/dL [facility] Blood specimen (specimen) 02/06/2019 11:10 PM EDT 02/06/2019 11:21 PM EDT Narrative Resulting Agency Comment Spec In Lab Trena Stoddard MD CHEMISTRY ORDERABLES Performing Organization Address [facility] Co de Phone Number [facility] [place] [address] * (ABNORMAL) Magnesium (02/06/2019 11:10 PM EDT) Magnesium 0.52(L) 0.69 - 1.07 mmol/L [facility] Blood specimen (specimen) 02/06/2019 11:10 PM EDT 02/06/2019 11:21 PM EDT Narrative Resulting Agency Comment Spec In Lab Trena Stoddard MD CHEMISTRY ORDERABLES Performing Organization Address [facility] Co de Phone Number [facility] [place] [address] * (ABNORMAL) Basic Metabolic Panel (non-fasting) (02/06/2019 11:10 PM EDT) Glucose 190 65 - 199 mg/dL [facility] Comment:Diabetes: >=200 mg/d L plus symptoms Blood Urea Nitrogen 26(H) 10 - 20 mg/dL [facility] Creatinine 1.68(H) 0.80 - 1.50 mg/dL [facility] Sodium 135 135 - 145 mmol/L [facility] Potassium 3.6 3.5 - 5.0 mmol/L [facility] Comment: Please note: ??Patients with WBC >100,000 may have falsely elevated Potassium levels. ??For accurate Potassium quantification in these patients send serum separator tube (gold top) for subsequent determinations. ??Contact the Clinical Chemistry Laboratory if there are any questions. Chloride 98 98 - 107 mmol/L [facility] Carbon Dioxide 24 22 - 31 mmol/L [facility] Anion Gap 13 5 - 15 mmol/L [facility] Calcium 8.3(L) 8.5 - 10.5 mg/dL [facility] Est Glomerular Filtration Rate 41(L) >=60 mL/min/1. 73 m?? [facility] Comment: The eGFR was calculated using the CKD-EPI equation. As with all creatinine based estimates of kidney function, eGFR values calculated with the CKD-EPI equation are not accurate in patients with acute kidney failure, extremes of body mass or the acutely ill. http://[employer]/[facility] eGFR 47(L) >=60 mL/min/1. 73 m?? [facility] Comment: The eGFR was calculated using the CKD-EPI equation. As with all creatinine based estimates of kidney function, eGFR values calculated with the CKD-EPI equation are not accurate in patients with acute kidney failure, extremes of body mass or the acutely ill. http://[employer]/[facility] Blood specimen (specimen) 02/06/2019 11:10 PM EDT 02/06/2019 11:21 PM EDT Narrative Resulting Agency Comment Spec In Lab Trena Stoddard MD CHEMISTRY ORDERABLES [facility] [place] [address] * Blood culture (02/06/2019 11:00 PM EDT) Blood Culture No growth at 5 days. [facility] Blood specimen (specimen) STRUCTURE OF RIGHT HAND / Unknown 02/06/2019 11:00 PM EDT 02/07/2019 12:08 AM EDT Narrative Resulting Agency Comment Spec In Lab Trena Stoddard MD MICROBIOLOGY - BLOOD ORDERABLES [facility] [address] [place] [address] documented in this encounter Visit Diagnoses Diagnosis Dyspnea, unspecified type Bacteremia due to Enterococcus Bacteremia Atrial fibrillation with RVR - had flutter initially, then fib Atrial fibrillation Pyelonephritis, acute Acute pyelonephritis without lesion of renal medullary necrosis Enterococcus faecalis infection Streptococcus infection in conditions classified elsewhere and of unspecified site, group D Fever Fever, unspecified documented in this encounter Administered Medications Inactive Administered Medications - up to 3 most recent administrations Medication Order MAR Action Action Date Dose Rate Site acetaminophen (TYLENOL) tablet 650 mg 650 mg, Oral, EVERY 8 HOURS PRN, Starting on Thu02/07/19 at 0219, Until Thu02/11/19 at 1548, Pain, Maximum dose of acetaminophen is 4000 mg from all sources in 24 hours., Routine Given 02/11/2019 4:20 AM EDT 650 mg Given 02/10/2019 9:13 PM EDT 650 mg Given 02/08/2019 4:31 PM EDT 650 mg albuterol (PROVENTIL) nebulizer solution 2.5 mg 2.5 mg, Nebulization, ONCE, 1 dose, On Thu02/07/19 at 0215, Routine Given 02/07/2019 2:15 AM EDT 2.5 mg ampicillin 2g vial attach to sodium chloride 0.9% 100 mL Mini-Bag Plus 2,000 mg (2 g), Intravenous, EVERY 6 HOURS, First dose on Thu02/09/19 at 1500, Until Discontinued, Administer over 15 Minutes, Warning Vesicant/Irritant Medication , Indication for (Active or Suspected): Urinary Tract/Pyelonephritis New Bag 02/11/2019 9:06 AM EDT 2,000 mg 400 mL/hr New Bag 02/11/2019 3:15 AM EDT 2,000 mg 400 mL/hr New Bag 02/10/2019 9:08 PM EDT 2,000 mg 400 mL/hr apixaban (ELIQUIS) tablet 5 mg 5 mg, Oral, 2 TIMES DAILY, First dose on Thu02/07/19 at 0900, Until Discontinued, Anticoagulant, Routine, Restricted anticoagulant, choose the most appropriate response: Appoved indication of DVT and/or PE Given 02/11/2019 9:10 AM EDT 5 mg Given 02/10/2019 9:09 PM EDT 5 mg Given 02/10/2019 8:55 AM EDT 5 mg aspirin chewable tablet 81 mg 81 mg, Oral, DAILY, First dose on Thu02/07/19 at 0900, Until Discontinued, Routine Given 02/11/2019 9:10 AM EDT 81 mg Given 02/10/2019 8:56 AM EDT 81 mg Given 02/09/2019 8:57 AM EDT 81 mg atorvastatin (LIPITOR) tablet 40 mg 40 mg, Oral, EVERY EVENING, First dose on Thu02/07/19 at 0000, Until Discontinued, Routine Given 02/10/2019 4:54 PM EDT 40 mg Given 02/09/2019 5:33 PM EDT 40 mg Given 02/08/2019 5:55 PM EDT 40 mg calciTRIol (ROCALTROL) capsule 0.5 mcg 0.5 mcg, Oral, DAILY, First dose on Thu02/07/19 at 0900, Until Discontinued, Routine Given 02/11/2019 9:11 AM EDT 0.5 mcg Given 02/10/2019 8:55 AM EDT 0.5 mcg Given 02/09/2019 8:56 AM EDT 0.5 mcg ceFEPime (MAXIPIME) 1g vial attach to sodium chloride 0.9% 100 mL Mini-Bag Plus 1 g, Intravenous, EVERY 12 HOURS, First dose on Thu02/07/19 at 0930, Until Discontinued, Administer over 30 Minutes, Indication for (Active or Suspected): Bacteremia/Sepsis New Bag 02/07/2019 9:20 AM EDT 1 g 200 mL/hr cefTAZidime (FORTAZ) 2 g vial attach to sodium chloride 0.9% 50 mL Mini-Bag Plus 2 g, Intravenous, EVERY 12 HOURS, First dose (after last modification) on Thu02/07/19 at 0215, Until Discontinued, Administer over 30 Minutes, Indication for (Active or Suspected): Pneumonia ([facility]), Restricted Antibiotic: Please indicate the most appropriate choice: Off hour exemption for 2 doses (11PM - 7AM) New Bag 02/07/2019 2:18 AM EDT 2 g 100 mL/hr chlorhexidine (PERIDEX) 0.12 % oral solution 15 mL 15 mL, Oral, 2 TIMES DAILY, First dose on Thu02/07/19 at 0900, Until Discontinued, Mclean teeth, Routine Given 02/10/2019 9:09 PM EDT 15 mLs Given 02/10/2019 8:56 AM EDT 15 mLs Given 02/09/2019 9:44 PM EDT 15 mLs clopidogrel (PLAVIX) tablet 75 mg 75 mg, Oral, DAILY, First dose on Thu02/07/19 at 0900, Until Discontinued, Routine Given 02/11/2019 9:10 AM EDT 75 mg Given 02/10/2019 8:55 AM EDT 75 mg Given 02/09/2019 8:57 AM EDT 75 mg dextrose 50% intravenous solution 25-50 mL 25-50 mL (12.5-25 g), Intravenous, EVERY 1 HOUR PRN, Starting on Thu02/07/19 at 0022, Until Thu02/11/19 at 1548, Low blood sugar, For BG 50-70 mg/dL: Oral treatment preferred:?? If able to drink, give 120 mL Juice or Regular (not diet) soda OR If NPO, give 15 gram glucose 40% oral gel massaged into buccal mucosa OR if unconscious or uncooperative, give 12.5 gram (25 mL) Dextrose 50% IV OR, if no IV access, give 1 mg Glucagon IM. For BG less than 50 mg/dL: Oral treatment preferred:?? If able to drink, give 240 mL Juice or Regular (not diet) soda OR If NPO, give 30 gram glucose 40% oral gel massaged in buccal mucosa OR if unconscious or uncooperative, give 25 gram (50 mL) Dextrose 50% IV OR, if no IV access, give 1 mg Glucagon IM. Recheck BG in 30 minutes. May repeat juice, gel, dextrose or glucagon once per episode. To avoid extravasation, push Dextrose 50% SLOWLY (3 mL over 1 minute) in a patent, running IV, preferably a central line. For persistent hypoglycemia, consider longer-acting treatment for the duration of the active insulin., Routine furosemide (LASIX) injection 20 mg 20 mg, Intravenous, ONCE, 1 dose, On Thu02/09/19 at 1145 Given 02/09/2019 12:11 PM EDT 20 mg furosemide (LASIX) injection 40 mg 40 mg, Intravenous, ONCE, 1 dose, On Thu02/07/19 at 0030 Given 02/07/2019 12:34 AM EDT 40 mg furosemide (LASIX) injection 40 mg 40 mg, Intravenous, ONCE, 1 dose, On Thu02/07/19 at 0930 Given 02/07/2019 9:20 AM EDT 40 mg furosemide (LASIX) injection 40 mg 40 mg, Intravenous, ONCE, 1 dose, On Thu02/08/19 at 0930 Given 02/08/2019 10:03 AM EDT 40 mg furosemide (LASIX) tablet 40 mg 40 mg, Oral, ONCE, 1 dose, On Laura 02/10/19 at 1000, Routine Given 02/10/2019 10:49 AM EDT 40 mg glipiZIDE (GLUCOTROL) tablet 2.5 mg 2.5 mg, Oral, 2 TIMES DAILY BEFORE MEALS, First dose on Thu02/07/19 at 0730, Until Discontinued, Administer 30 minutes before the meal. Consider holding dose if patient is not eating. , Routine Given 02/07/2019 8:22 AM EDT 2.5 mg glucagon (human recombinant) injection SolR 1 mg 1 mg, Intramuscular, EVERY 1 HOUR PRN, Starting on Thu02/07/19 at 0022, Until Thu02/11/19 at 1548, Low blood sugar, For BG 50-70 mg/dL: Oral treatment preferred:?? If able to drink, give 120 mL Juice or Regular (not diet) soda OR If NPO, give 15 gram glucose 40% oral gel massaged into buccal mucosa OR if unconscious or uncooperative, give 12.5 gram (25 mL) Dextrose 50% IV OR, if no IV access, give 1 mg Glucagon IM. For BG less than 50 mg/dL: Oral treatment preferred:?? If able to drink, give 240 mL Juice or Regular (not diet) soda OR If NPO, give 30 gram glucose 40% oral gel massaged in buccal mucosa OR if unconscious or uncooperative, give 25 gram (50 mL) Dextrose 50% IV OR, if no IV access, give 1 mg Glucagon IM. Recheck BG in 30 minutes. May repeat juice, gel, dextrose or glucagon once per episode. To avoid extravasation, push Dextrose 50% SLOWLY (3 mL over 1 minute) in a patent, running IV, preferably a central line. For persistent hypoglycemia, consider longer-acting treatment for the duration of the active insulin., Routine glucose (GLUTOSE) 40% oral gel 15-30 g, Buccal, EVERY 30 MIN PRN, Starting on Thu02/07/19 at 0022, Until Thu02/11/19 at 1548, Low blood sugar, For BG 50-70 mg/dL: Oral treatment preferred:?? If able to drink, give 120 mL Juice or Regular (not diet) soda OR If NPO, give 15 gram glucose 40% oral gel massaged into buccal mucosa OR if unconscious or uncooperative, give 12.5 gram (25 mL) Dextrose 50% IV OR, if no IV access, give 1 mg Glucagon IM. For BG less than 50 mg/dL: Oral treatment preferred:?? If able to drink, give 240 mL Juice or Regular (not diet) soda OR If NPO, give 30 gram glucose 40% oral gel massaged in buccal mucosa OR if unconscious or uncooperative, give 25 gram (50 mL) Dextrose 50% IV OR, if no IV access, give 1 mg Glucagon IM. Recheck BG in 30 minutes. May repeat juice, gel, dextrose or glucagon once per episode. To avoid extravasation, push Dextrose 50% SLOWLY (3 mL over 1 minute) in a patent, running IV, preferably a central line. For persistent hypoglycemia, consider longer-acting treatment for the duration of the active insulin. 1 tube contains 15 grams of glucose (net weight of tube = 37.5 grams., Routine insulin lispro (HumaLOG) VIAL injection 1-4 Units 1-4 Units, Subcutaneous, 4 TIMES DAILY BEFORE MEALS & NIGHTLY, First dose on Thu02/07/19 at 0045, Until Discontinued, CORRECTION BOLUS Sensitive to insulin lean patient or total daily dose of all insulin needed to achieve glycemic control less than 30 units BG 140 - 160 Give 1 unit BG 161 - 200 Give 2 units BG 201 - 240 Give 3 units BG greater than 240, give 4 units and recheck BG in 2 hours. If less than 240 after two hours, give no insulin and resume prior schedule. If BG remains greater than 240, repeat 4 units (no more than three times) & call for new basal insulin orders. DO NOT hold if NPO, unless specifically told to do so., Routine Given 02/11/2019 11:30 AM EDT 2 Units Given 02/10/2019 9:09 PM EDT 2 Units Given 02/10/2019 4:54 PM EDT 2 Units levothyroxine (SYNTHROID) tablet 137 mcg 137 mcg, Oral, DAILY, First dose on Thu02/07/19 at 0900, Until Discontinued, Routine Given 02/11/2019 9:10 AM EDT 137 mcg Given 02/10/2019 8:55 AM EDT 137 mcg Given 02/09/2019 8:57 AM EDT 137 mcg lidocaine (XYLOCAINE) 10 mg/mL (1 %) injection 3 mg 3 mg (0.3 mL), Subcutaneous, ONCE PRN, 1 dose, Starting on Thu02/07/19 at 0257, Until Thu02/11/19 at 1548, for discomfort with PIV insertion, Routine magnesium oxide (MAG-OX) tablet 400 mg 400 mg, Oral, 2 TIMES DAILY, 4 doses, First dose on Thu02/08/19 at 0230, Last dose on Thu02/09/19 at 0900, Routine Given 02/09/2019 8:57 AM EDT 400 mg Given 02/08/2019 8:28 PM EDT 400 mg Given 02/08/2019 8:44 AM EDT 400 mg magnesium sulfate 1g in dextrose 5% 100mL 1 g, Intravenous, ONCE, 1 dose, On Thu02/07/19 at 0530, Administer over 60 Minutes New Bag 02/07/2019 6:40 AM EDT 1 g 100 mL/hr mycophenolate (CELLCEPT) capsule 250 mg 250 mg, Oral, 2 TIMES DAILY, First dose on Thu02/10/19 at 1900, Until Discontinued, DO NOT CRUSH OR OPEN Administer to patient on empty stomach (1 hour before or two hours after a meal)., Routine Given 02/11/2019 6:22 AM EDT 250 mg Given 02/10/2019 6:26 PM EDT 250 mg piperacillin-tazobactam (ZOSYN) 3.375 g vial attach to sodium chloride 0.9% 50 mL Mini-Bag Plus 3.375 g, Intravenous, EVERY 8 HOURS, First dose on Thu02/07/19 at 1630, Until Discontinued, Administer over 4 Hours, Warning Vesicant/Irritant Medication Do not administer or Y-site with lactated ringers., Indication for (Active or Suspected): Bacteremia/Sepsis New Bag 02/09/2019 8:57 AM EDT 3.375 g 1 2.5 mL/hr New Bag 02/08/2019 11:43 PM EDT 3.375 g 12.5 mL/hr New Bag 02/08/2019 4:32 PM EDT 3.375 g 12.5 mL/hr potassium chloride (K-DUR/KLOR-CON) extended release tablet 20 mEq 20 mEq, Oral, ONCE, 1 dose, On Thu02/09/19 at 1145, 20 mEq tablet may be dissolved in water for administration, Routine Given 02/09/2019 12:11 PM EDT 20 mEq potassium chloride (K-DUR/KLOR-CON) extended release tablet 40 mEq 40 mEq, Oral, ONCE, 1 dose, On Thu02/08/19 at 0230, 20 mEq tablet may be dissolved in water for administration, Routine Given 02/08/2019 2:22 AM EDT 40 mEq potassium phosphate (monobasic) (K-PHOS) tablet 1,000 mg 1,000 mg, Oral, 2 TIMES DAILY, First dose on Thu02/10/19 at 1300, Until Discontinued, Dissolve tablets in 6-8 oz of water; for best results, soak tablets in water for 2-5 minutes, then stir and give to patient., Routine Given 02/11/2019 9:11 AM EDT 1,000 mg Given 02/10/2019 9:09 PM EDT 1,000 mg Given 02/10/2019 12:33 PM EDT 1,000 mg sodium chloride 0.9 % (flush) flush 5 mL 5 mL, Intravenous, 2 TIMES DAILY, First dose on Thu02/06/19 at 2315, Until Discontinued, Routine Given 02/11/2019 9:00 AM EDT 5 mLs Given 02/10/2019 9:10 PM EDT 5 mLs Given 02/10/2019 8:56 AM EDT 10 mLs sodium chloride 0.9 % (flush) flush 5-20 mL 5-20 mL, Intravenous, EVERY 1 MIN PRN, Starting on 02/07/19 at 0257, Until Thu02/11/19 at 1548, flush, Flush pertains to all indwelling lines. Flush per protocol found in the job aid using the link provided on this medication record., Routine tacrolimus (PROGRAF) capsule 1 mg 1 mg, Oral, NIGHTLY, First dose on Thu02/06/19 at 2345, Until Discontinued, Routine Given 02/10/2019 9:09 PM EDT 1 mg Given 02/09/2019 9:44 PM EDT 1 mg Given 02/08/2019 8:28 PM EDT 1 mg tacrolimus (PROGRAF) capsule 2 mg 2 mg, Oral, DAILY, First dose on Thu02/07/19 at 0900, Until Discontinued, Routine Given 02/11/2019 9:11 AM EDT 2 mg Given 02/10/2019 8:55 AM EDT 2 mg Given 02/09/2019 8:56 AM EDT 2 mg tamsulosin (FLOMAX) ER capsule 0.4 mg 0.4 mg, Oral, DAILY, First dose on Thu02/07/19 at 0900, Until Discontinued, DO NOT CRUSH OR OPEN, Routine Given 02/11/2019 9:11 AM EDT 0.4 mg Given 02/10/2019 8:55 AM EDT 0.4 mg Given 02/09/2019 8:57 AM EDT 0.4 mg vancomycin 1.25 g sodium in chloride 0.9% 250 mL 1.25 g, Intravenous, at 200 mL/hr, ONCE, 1 dose, On Thu02/07/19 at 2100, Maximum infusion rate is 1 gram/hour. If flushing of the face, neck, upper body, arms, and/or back occurs decrease infusion rate by 50% to reduce the severity of symptoms. This medication may have an associated drug lab level. Please see MAR for scheduled level. Warning Vesicant/Irritant Medication , Routine New Bag 02/07/2019 10:04 PM EDT 1.25 g 200 mL/hr vancomycin 2 g in sodium chloride 0.9% 500 mL 2 g, Intravenous, at 250 mL/hr, ONCE, 1 dose, On Thu02/07/19 at 0215, Maximum infusion rate is 1 gram/hour. If flushing of the face, neck, upper body, arms, and/or back occurs decrease infusion rate by 50% to reduce the severity of symptoms. This medication may have an associated drug lab level. Please see MAR for scheduled level., Routine New Bag 02/07/2019 2:54 AM EDT 2 g 250 m L/hr documented in this encounter Active and Recently Administered Medications Times are shown in EDT. Scheduled Medication Order 02/09/2019 02/10/2019 02/11/2019 ampicillin 2g vial attach to sodium chloride 0.9% 100 mL Mini-Bag Plus 2,000 mg (2 g), Intravenous, EVERY 6 HOURS, First dose on Thu02/09/19 at 1500, Until Discontinued, Administer over 15 Minutes, Warning Vesicant/Irritant Medication , Indication for (Active or Suspected): Urinary Tract/Pyelonephritis 1417 (New Bag - Provider: Arely Wang RN)1432 (Stopped - Provider: Arely Wang RN)2147 (New Bag - Provider: Josefina English RN)2202 (Stopped - Provider: Josefina English RN) 0324 (New Bag - Provider: Josefina English RN)0339 (Stopped - Provider: Josefina English RN)0851 (New Bag - Provider: Ethel Darling RN)0906 (Stopped - Provider: Ethel Darling RN)1443 (New Bag - Provider: Ethel Darling RN)1458 (Stopped - Provider: Ethel Darling RN)2108 (New Bag - Provider: Sohan Smith RN)2123 (Stopped - Provider: Sohan Smith RN) 0315 (New Bag - Provider: Sohan Smith RN)0330 (Stopped - Provider: Sohan Smith RN)0906 (New Bag - Provider: Ethel Darling RN)0921 (Stopped - Provider: Ethel Darling RN) apixaban (ELIQUIS) tablet 5 mg 5 mg, Oral, 2 TIMES DAILY, First dose on Thu02/07/19 at 0900, Until Discontinued, Anticoagulant, Routine, Restricted anticoagulant, choose the most appropriate response: Appoved indication of DVT and/or PE 0857 (Given - Provider: Arely Wang RN)2144 (Given - Provider: Josefina English RN) 0855 (Given - Provider: Ethel Darling RN)210 (Given - Provider: Sohan Smith RN) 0910 (Given - Provider: Ethel Darling RN) aspirin chewable tablet 81 mg 81 mg, Oral, DAILY, First dose on Thu02/07/19 at 0900, Until Discontinued, Routine 0857 (Given - Provider: Arely Wang RN) 0856 (Given - Provider: Ethel Darling RN) 0910 (Given - Provider: Ethel Darling RN) atorvastatin (LIPITOR) tablet 40 mg 40 mg, Oral, EVERY EVENING, First dose on Thu02/07/19 at 0000, Until Discontinued, Routine 1733 (Given - Provider: Arely Wang RN) 1654 (Given - Provider: Ethel Darling RN) calciTRIol (ROCALTROL) capsule 0.5 mcg 0.5 mcg, Oral, DAILY, First dose on Thu02/07/19 at 0900, Until Discontinued, Routine 0856 (Given - Provider: Arely Wang RN) 0855 (Given - Provider: Ethel Darling RN) 0911 (Given - Provider: Ethel Darling RN) chlorhexidine (PERIDEX) 0.12 % oral solution 15 mL 15 mL, Oral, 2 TIMES DAILY, First dose on Thu02/07/19 at 0900, Until Discontinued, Mclean teeth, Routine 0857 (Given - Provider: Arely Wang RN)2144 (Given - Provider: Josefina English RN) 0856 (Given - Provider: Ethel Darling, JADEN)2109 (Given - Provider: Sohan Smith, JADEN) 0900 (Not Given - Provider: Ethel Darling, JADEN - Reason: Patient/family refused) clopidogrel (PLAVIX) tablet 75 mg 75 mg, Oral, DAILY, First dose on Thu02/07/19 at 0900, Until Discontinued, Routine 0857 (Given - Provider: Arely Wang RN) 0855 (Given - Provider: Ethel Darling, JADEN) 0910 (Given - Provider: Ethel Darling RN) furosemide (LASIX) injection 20 mg (COMPLETED) 20 mg, Intravenous, ONCE, 1 dose, On Thu02/09/19 at 1145 1211 (Given - Provider: Arely Wang RN) furosemide (LASIX) tablet 40 mg (COMPLETED) 40 mg, Oral, ONCE, 1 dose, On Laura 02/10/19 at 1000, Routine 1049 (Given - Provider: Ethel Darling, JADEN) insulin lispro (HumaLOG) VIAL injection 1-4 Units(Linked Group 1) 1-4 Units, Subcutaneous, 4 TIMES DAILY BEFORE MEALS & NIGHTLY, First dose on Thu02/07/19 at 0045, Until Discontinued, CORRECTION BOLUS Sensitive to insulin lean patient or total daily dose of all insulin needed to achieve glycemic control less than 30 units BG 140 - 160 Give 1 unit BG 161 - 200 Give 2 units BG 201 - 240 Give 3 units BG greater than 240, give 4 units and recheck BG in 2 hours. If less than 240 after two hours, give no insulin and resume prior schedule. If BG remains greater than 240, repeat 4 units (no more than three times) & call for new basal insulin orders. DO NOT hold if NPO, unless specifically told to do so., Routine 0855 (Given - Provider: Arely Wang RN)1132 (Given - Provider: Arely Wang RN)1630 (Not Given - Provider: Arely Wang RN - Reason: Order parameters not met)2144 (Given - Provider: Josefina English, JADEN) 0655 (Not Given - Provider: Josefina English RN - Reason: Order parameters not met)1118 (Given - Provider: Ethel Darling RN)1654 (Given - Provider: Ethel Darling, JADEN)2109 (Given - Provider: Sohan Smith, JADEN) 0730 (Not Given - Provider: Ethel Darling RN - Reason: Order parameters not met)1130 (Given - Provider: Ethel Darling, JADEN) levothyroxine (SYNTHROID) tablet 137 mcg 137 mcg, Oral, DAILY, First dose on Thu02/07/19 at 0900, Until Discontinued, Routine 0857 (Given - Provider: Arely Wang RN) 0855 (Given - Provider: Ethel Darling RN) 0910 (Given - Provider: Ethel Darling, JADEN) magnesium oxide (MAG-OX) tablet 400 mg (COMPLETED) 400 mg, Oral, 2 TIMES DAILY, 4 doses, First dose on Thu02/08/19 at 0230, Last dose on Thu02/09/19 at 0900, Routine 0857 (Given - Provider: Arely Wang RN) mycophenolate (CELLCEPT) capsule 250 mg 250 mg, Oral, 2 TIMES DAILY, First dose on Thu02/10/19 at 1900, Until Discontinued, DO NOT CRUSH OR OPEN Administer to patient on empty stomach (1 hour before or two hours after a meal)., Routine 1826 (Given - Provider: Ethel Darling RN) 0622 (Given - Provider: Sohan Smith RN) piperacillin-tazobactam (ZOSYN) 3.375 g vial attach to sodium chloride 0.9% 50 mL Mini-Bag Plus (CANCELED) 3.375 g, Intravenous, EVERY 8 HOURS, First dose on Thu02/07/19 at 1630, Until Discontinued, Administer over 4 Hours, Warning Vesicant/Irritant Medication Do not administer or Y-site with lactated ringers., Indication for (Active or Suspected): Bacteremia/Sepsis 0343 (Stopped - Provider: Joanne Dawkins RN)0857 (New Bag - Provider: Arely Wang RN)1257 (Stopped - Provider: Arely Wang RN) potassium chloride (K-DUR/KLOR-CON) extended release tablet 20 mEq (COMPLETED) 20 mEq, Oral, ONCE, 1 dose, On Thu02/09/19 at 1145, 20 mEq tablet may be dissolved in water for administration, Routine 1211 (Given - Provider: Arely Wang RN) potassium phosphate (monobasic) (K-PHOS) tablet 1,000 mg 1,000 mg, Oral, 2 TIMES DAILY, First dose on Thu02/10/19 at 1300, Until Discontinued, Dissolve tablets in 6-8 oz of water; for best results, soak tablets in water for 2-5 minutes, then stir and give to patient., Routine 1233 (Given - Provider: Ethel Darling RN)2109 (Given - Provider: Sohan Smith, JADEN) 0911 (Given - Provider: Ethel Darling, JADEN) sodium chloride 0.9 % (flush) flush 5 mL 5 mL, Intravenous, 2 TIMES DAILY, First dose on Thu02/06/19 at 2315, Until Discontinued, Routine 0858 (Given - Provider: Arely Wang RN)2151 (Given - Provider: Josefina English RN) 0856 (Given - Provider: Ethel Darling RN)2109 (Given - Provider: Sohan Smith RN) 0900 (Given - Provider: Ethel Darling RN) tacrolimus (PROGRAF) capsule 1 mg 1 mg, Oral, NIGHTLY, First dose on Thu02/06/19 at 2345, Until Discontinued, Routine 2143 (Given - Provider: Josefina English RN) 2108 (Given - Provider: Sohan Smith RN) tacrolimus (PROGRAF) capsule 2 mg 2 mg, Oral, DAILY, First dose on Thu02/07/19 at 0900, Until Discontinued, Routine 0856 (Given - Provider: Arely Wang RN) 0855 (Given - Provider: Ethel Darling RN) 0911 (Given - Provider: Ethel Darling RN) tamsulosin (FLOMAX) ER capsule 0.4 mg 0.4 mg, Oral, DAILY, First dose on Thu02/07/19 at 0900, Until Discontinued, DO NOT CRUSH OR OPEN, Routine 0857 (Given - Provider: Arely Wang RN) 0855 (Given - Provider: Ethel Darling RN) 0911 (Given - Provider: Ethel Darling RN) PRN Medication Order 02/09/2019 02/10/2019 02/11/2019 acetaminophen (TYLENOL) tablet 650 mg 650 mg, Oral, EVERY 8 HOURS PRN, Starting on Thu02/07/19 at 0219, Until Thu02/11/19 at 1548, Pain, Maximum dose of acetaminophen is 4000 mg from all sources in 24 hours., Routine 2112 (Given - Provider: Sohan Smith RN) 419 (Given - Provider: Sohan Smith RN) dextrose 50% intravenous solution 25-50 mL(Linked Group 2) 25-50 mL (12.5-25 g), Intravenous, EVERY 1 HOUR PRN, Starting on Thu02/07/19 at 0022, Until Thu02/11/19 at 1548, Low blood sugar, For BG 50-70 mg/dL: Oral treatment preferred:?? If able to drink, give 120 mL Juice or Regular (not diet) soda OR If NPO, give 15 gram glucose 40% oral gel massaged into buccal mucosa OR if unconscious or uncooperative, give 12.5 gram (25 mL) Dextrose 50% IV OR, if no IV access, give 1 mg Glucagon IM. For BG less than 50 mg/dL: Oral treatment preferred:?? If able to drink, give 240 mL Juice or Regular (not diet) soda OR If NPO, give 30 gram glucose 40% oral gel massaged in buccal mucosa OR if unconscious or uncooperative, give 25 gram (50 mL) Dextrose 50% IV OR, if no IV access, give 1 mg Glucagon IM. Recheck BG in 30 minutes. May repeat juice, gel, dextrose or glucagon once per episode. To avoid extravasation, push Dextrose 50% SLOWLY (3 mL over 1 minute) in a patent, running IV, preferably a central line. For persistent hypoglycemia, consider longer-acting treatment for the duration of the active insulin., Routine glucagon (human recombinant) injection SolR 1 mg(Linked Group 2) 1 mg, Intramuscular, EVERY 1 HOUR PRN, Starting on Thu02/07/19 at 0022, Until Thu02/11/19 at 1548, Low blood sugar, For BG 50-70 mg/dL: Oral treatment preferred:?? If able to drink, give 120 mL Juice or Regular (not diet) soda OR If NPO, give 15 gram glucose 40% oral gel massaged into buccal mucosa OR if unconscious or uncooperative, give 12.5 gram (25 mL) Dextrose 50% IV OR, if no IV access, give 1 mg Glucagon IM. For BG less than 50 mg/dL: Oral treatment preferred:?? If able to drink, give 240 mL Juice or Regular (not diet) soda OR If NPO, give 30 gram glucose 40% oral gel massaged in buccal mucosa OR if unconscious or uncooperative, give 25 gram (50 mL) Dextrose 50% IV OR, if no IV access, give 1 mg Glucagon IM. Recheck BG in 30 minutes. May repeat juice, gel, dextrose or glucagon once per episode. To avoid extravasation, push Dextrose 50% SLOWLY (3 mL over 1 minute) in a patent, running IV, preferably a central line. For persistent hypoglycemia, consider longer-acting treatment for the duration of the active insulin., Routine glucose (GLUTOSE) 40% oral gel(Linked Group 2) 15-30 g, Buccal, EVERY 30 MIN PRN, Starting on Thu02/07/19 at 0022, Until Thu02/11/19 at 1548, Low blood sugar, For BG 50-70 mg/dL: Oral treatment preferred:?? If able to drink, give 120 mL Juice or Regular (not diet) soda OR If NPO, give 15 gram glucose 40% oral gel massaged into buccal mucosa OR if unconscious or uncooperative, give 12.5 gram (25 mL) Dextrose 50% IV OR, if no IV access, give 1 mg Glucagon IM. For BG less than 50 mg/dL: Oral treatment preferred:?? If able to drink, give 240 mL Juice or Regular (not diet) soda OR If NPO, give 30 gram glucose 40% oral gel massaged in buccal mucosa OR if unconscious or uncooperative, give 25 gram (50 mL) Dextrose 50% IV OR, if no IV access, give 1 mg Glucagon IM. Recheck BG in 30 minutes. May repeat juice, gel, dextrose or glucagon once per episode. To avoid extravasation, push Dextrose 50% SLOWLY (3 mL over 1 minute) in a patent, running IV, preferably a central line. For persistent hypoglycemia, consider longer-acting treatment for the duration of the active insulin. 1 tube contains 15 grams of glucose (net weight of tube = 37.5 grams., Routine lidocaine (XYLOCAINE) 10 mg/mL (1 %) injection 3 mg 3 mg (0.3 mL), Subcutaneous, ONCE PRN, 1 dose, Starting on Thu02/07/19 at 0257, Until Thu02/11/19 at 1548, for discomfort with PIV insertion, Routine sodium chloride 0.9 % (flush) flush 5-20 mL 5-20 mL, Intravenous, EVERY 1 MIN PRN, Starting on Thu02/07/19 at 0257, Until Thu02/11/19 at 1548, flush, Flush pertains to all indwelling lines. Flush per protocol found in the job aid using the link provided on this medication record., Routine Linked Groups Order Group 1: POCT Fingerstick Glucose (CANCELED) Routine, 4 TIMES DAILY BEFORE MEALS & AT BEDTIME, First occurrence on Thu02/07/19 at 0700, Until Specified, Consider choosing EVERY 4 HOURS as frequency for: - Type 1 Diabetes - At least 24 hours after coming off an insulin drip - At least 24 hours after admission for DKA - Hypoglycemia unawareness - Patients who are otherwise unstable Select the same frequency for the correction bolus insulin order And insulin lispro (HumaLOG) VIAL injection 1-4 UnitsJump to med 1-4 Units, Subcutaneous, 4 TIMES DAILY BEFORE MEALS & NIGHTLY, First dose on Thu02/07/19 at 0045, Until Discontinued, CORRECTION BOLUS Sensitive to insulin lean patient or total daily dose of all insulin needed to achieve glycemic control less than 30 units BG 140 - 160 Give 1 unit BG 161 - 200 Give 2 units BG 201 - 240 Give 3 units BG greater than 240, give 4 units and recheck BG in 2 hours. If less than 240 after two hours, give no insulin and resume prior schedule. If BG remains greater than 240, repeat 4 units (no more than three times) & call for new basal insulin orders. DO NOT hold if NPO, unless specifically told to do so., Routine Group 2: glucose (GLUTOSE) 40% oral gelJump to med 15-30 g, Buccal, EVERY 30 MIN PRN, Starting on Thu02/07/19 at 0022, Until Thu02/11/19 at 1548, Low blood sugar, For BG 50-70 mg/dL: Oral treatment preferred:?? If able to drink, give 120 mL Juice or Regular (not diet) soda OR If NPO, give 15 gram glucose 40% oral gel massaged into buccal mucosa OR if unconscious or uncooperative, give 12.5 gram (25 mL) Dextrose 50% IV OR, if no IV access, give 1 mg Glucagon IM. For BG less than 50 mg/dL: Oral treatment preferred:?? If able to drink, give 240 mL Juice or Regular (not diet) soda OR If NPO, give 30 gram glucose 40% oral gel massaged in buccal mucosa OR if unconscious or uncooperative, give 25 gram (50 mL) Dextrose 50% IV OR, if no IV access, give 1 mg Glucagon IM. Recheck BG in 30 minutes. May repeat juice, gel, dextrose or glucagon once per episode. To avoid extravasation, push Dextrose 50% SLOWLY (3 mL over 1 minute) in a patent, running IV, preferably a central line. For persistent hypoglycemia, consider longer- acting treatment for the duration of the active insulin. 1 tube contains 15 grams of glucose (net weight of tube = 37.5 grams., Routine Or dextrose 50% intravenous solution 25-50 mLJump to med 25-50 mL (12.5-25 g), Intravenous, EVERY 1 HOUR PRN, Starting on Thu02/07/19 at 0022, Until Thu02/11/19 at 1548, Low blood sugar, For BG 50-70 mg/dL: Oral treatment preferred:?? If able to drink, give 120 mL Juice or Regular (not diet) soda OR If NPO, give 15 gram glucose 40% oral gel massaged into buccal mucosa OR if unconscious or uncooperative, give 12.5 gram (25 mL) Dextrose 50% IV OR, if no IV access, give 1 mg Glucagon IM. For BG less than 50 mg/dL: Oral treatment preferred:?? If able to drink, give 240 mL Juice or Regular (not diet) soda OR If NPO, give 30 gram glucose 40% oral gel massaged in buccal mucosa OR if unconscious or uncooperative, give 25 gram (50 mL) Dextrose 50% IV OR, if no IV access, give 1 mg Glucagon IM. Recheck BG in 30 minutes. May repeat juice, gel, dextrose or glucagon once per episode. To avoid extravasation, push Dextrose 50% SLOWLY (3 mL over 1 minute) in a patent, running IV, preferably a central line. For persistent hypoglycemia, consider longer-acting treatment for the duration of the active insulin., Routine Or glucagon (human recombinant) injection SolR 1 mgJump to med 1 mg, Intramuscular, EVERY 1 HOUR PRN, Starting on Thu02/07/19 at 0022, Until Thu02/11/19 at 1548, Low blood sugar, For BG 50-70 mg/dL: Oral treatment preferred:?? If able to drink, give 120 mL Juice or Regular (not diet) soda OR If NPO, give 15 gram glucose 40% oral gel massaged into buccal mucosa OR if unconscious or uncooperative, give 12.5 gram (25 mL) Dextrose 50% IV OR, if no IV access, give 1 mg Glucagon IM. For BG less than 50 mg/dL: Oral treatment preferred:?? If able to drink, give 240 mL Juice or Regular (not diet) soda OR If NPO, give 30 gram glucose 40% oral gel massaged in buccal mucosa OR if unconscious or uncooperative, give 25 gram (50 mL) Dextrose 50% IV OR, if no IV access, give 1 mg Glucagon IM. Recheck BG in 30 minutes. May repeat juice, gel, dextrose or glucagon once per episode. To avoid extravasation, push Dextrose 50% SLOWLY (3 mL over 1 minute) in a patent, running IV, preferably a central line. For persistent hypoglycemia, consider longer-acting treatment for the duration of the active insulin., Routine documented in this encounter Care Teams Customer Contact Representative Relationship Specialty Start Date End Date Urbano Denis DO [address] [place] [address] PCP - General 09/03/12 03/17/22 Ruchi Valles RN Nurse Clinic Transplant Surgery 07/30/15 documented as of this encounter
--- OUTSIDE RECORDS SUMMARY | 2024-02-14 11:23 | XMS_ITS | Encounter Summary ---
Author [facility] [place] [address] Care Team Providers Care Fire Fighter Name Role Phone Adeel Urbano KIRBY Primary Care Provider Reason for Visit * Reason Comments Medication Refill Encounter Details Date Type Department Care Team (Late st Contact Info) Description 01/17/2019 Refill [place] [address] Tal Eagle MD [facility] [place] [address] Social History Tobacco Use Types Packs/Day Years [...] AM EDT Hospital Encounter Non-Invasive [place] [address] Arrived documented as of this encounter Goals Goal Patient Goal Type Associated Problems Recent Progress Patient-Stated? Author [facility] Medication Compliance and Understanding Patient Facing Action Plan On track( 017 10:41 AM EDT) Selena Scott, [facility] Note: Patient Goal: Clear hepatitis C Timeframe to meet goal: within 12 weeks of therapy documented as of this encounter Visit Diagnoses Not on filedocumented in this encounter Care Teams Fire Fighter Relationship Specialty Start Date End Date Urbano Denis DO [address] [place] [address] PCP - General 09/03/12 03/17/22 Ruchi Valles RN Nurse Clinic Transplant Surgery 07/30/15 documented as of this encounter
--- OUTSIDE RECORDS SUMMARY | 2024-02-14 11:23 | XMS_ITS | Encounter Summary ---
Author Organization [facility] [place] [address] Care Team Providers Care Department Head Name Role Phone Urbano Denis DO Primary Care Provider [phone] Reason for Visit * Reason Comments Dehydration Dizziness * Auth/Cert Specialty Diagnoses / Procedures Referred By Humberto flor Referred To Contact Diagnoses Paroxysmal atrial fibrillation Atrial fibrillation with RVR Referral ID Status Reason Start Date Expiration Date Visits Re quested Visits Authorized [id number] 1 1 Encounter Details Date Type Department Care Team (Late st Contact Info) Description 02/02/2019 1:00 PM EDT - 02/02/2019 2:00 PM EDT Surgery [place] [address] Bobby Engel MD [facility] [place] [address] CARDIAC CATHETERIZATION Social History Tobacco Use Types [...] Sign Reading Time Taken Comments Blood Pressure 142/79 02/02/2019 12:50 PM EDT Pulse 66 02/02/2019 12:50 PM EDT Temperature 36.9 ??C (98.4 ??F) 02/02/2019 1 1:32 AM EDT Respiratory Rate 22 02/02/2019 11:4 9 AM EDT Oxygen Saturation 93% 02/02/2019 12: 39 PM EDT Inhaled Oxygen Concentration - - Weight 107.8 kg (237 lb 9.6 oz) 02/02/2019 6:13 AM EDT Height 180.3 cm (5' 11) 01/31/2019 11: 10 AM EDT Body Mass Index 32.9 01/31/2019 11:10 AM EDT documented in this encounter Discharge Summaries * Danny Hicks MD - 02/05/2019 3:25 PM EDT Discharge Summary Patient Name: Ethel Bolden Patient Age: 68 y.o. Language: Upper Sorbian Race: White Ethnicity: Not nor Admit date: 01/31/2019 Discharge date and time: 02/05/2019 Attending Physician: Alessandro Limon DO Discharge Physician: Danny Hicks MD Follow-up Recommendations for Providers: - Mr. Bolden is being started on aspirin 81mg for his NSTEMI; per cardiology, this should be continued for 1 month. If he has any signs of bleeding, this can be discontinued sooner, per their recommendations. - He is also being started on apixaban 5mg BID in the setting of his atrial flutter and elevated CHADSVASC score. - He is being started on metoprolol succinate 25mg for rate control in the setting of his atrial flutter - In the setting of his kidney disease, we discontinued his long-acting glipizide and started him on short-acting glipizide - Mr. Bolden required several doses of furosemide in the setting of his acute heart failure and hypoxia. His fluid status should be assessed by VNA services, and by his PCP after discharge, to see if he would benefit from daily furosemide. - Mr. Bolden would benefit from cardiac rehab to increase his cardiac function and better perfusehis organs and a referral was placed - There may be a component of sleep apnea causing some of his hypoxia. Please evaluate for ARIELLA and possible CPAP use at night. Inpatient Provider Contact Information: For questions regarding this document or issues relating to this hospitalization on the Medical Service, please contact your inpatient physician through the [facility] Risk Assessor . Issues afterhours and on weekends will be handled by the Hospitalist staff on-call. Discharge Diagnoses (Hospital Problems) and Secondary Diagnoses (Chronic Problems): Active Hospital Problems Diagnosis ??? Atrial fibrillation with RVR - had flutter initially, then fib Resolved Hospital Problems No resolved problems to display. Active Non-Hospital Problems Diagnosis ??? Hydronephrosis ??? S/P R TKA 11/25/17 Dr. Dale ??? Obesity (BMI 30.0-34.9) ??? Debility ??? Pain of right lower extremity ??? Vitamin D deficiency ??? 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 correction current use of 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 drug ??? CAH (chronic active hepatitis) ??? Immunosuppression ??? Type 2 diabetes mellitus with complication, without long-term current use of insulin ??? Weight increase ??? Sepsis ??? Kidney replaced by transplant ??? Encounter for long-term (current) use of other medications ??? Aftercare following organ transplant ??? Dehydration ??? Ureteral stricture ??? Bacteremia due to coagulase-negative Staphylococcus ??? Fever ??? UTI (urinary tract infection) ??? RAY (acute kidney injury) ??? Kidney transplant infection ??? HCV (hepatitis C virus) ??? Hepatitis C virus infection ??? Essential hypertension ??? CGN (chronic glomerulonephritis) ??? DM type 2 (diabetes mellitus, type 2) ??? Hypertension ??? DJD (degenerative joint disease) ??? Hematuria Operations/Major Procedures: Operations: Procedure(s): CARDIAC CATHETERIZATION 02/02/2019 History of Presentation: 68??y.o. male w/ hx of HCV, DM, HTN who is s/p donor kidney transplant 09/16/15, h/o ureteral reconstructive surgery due to long transplanted ureter stricture not amenable to dilatation, h/o Hepatitis C which cleared after post tx with Jannetoni for hep C presents with decreased urine output and lightheadedness. Found to be in aflutter with 2:1 with rates in 150's. He did not feel his heartgoing rapidly. Denied chest pain. Quite active - walks stairs etc. Found to have ARY. Had been drinking 3 liters fluid a day. Did not have any diarrhea. Had poor appetite. Nausea and some vomiting inED. Received nitroglycerin and heartburn went from 10 to 0. Currently remains in sinus ?? Per him there was a question of atrial fibrillation when had a stroke (). Of note MRI had showed small lacunar --had DAVEY and month long holter without evidence of afib. Of note he has not had any symptoms of palpitations. No syncopal events. He has never had a heart catheterization. Neg stresstest in 2014 ?? Note has had hard to control GERD for 50 years. Stopped taking PPI about 3 weeks ago. Of note does eat rolaids like candy. Current heartburn feels like his baseline. ?? Received 10 mg IV diltiazem with no change, then received 25 mg IV diltiazem --I was in room --looked like he went into afib then converted to sinus shortly after. ?? Didn't feel like he was dehydrated, At least 3 liters of fluid daily. No diarrhea or any other source of fluid loss. Denies any fevers or chills. [place] bloated in abdomen since yesterday. No pain witheating. Vomiting in ED -- given nitroglycerin and his heartburn went from 10 to 0 ?? Only made about 150cc total urine in 24 hours prior to coming in Already made 250cc in ED ?? He had renal transplant US which looked ok Hospital Course: # NSTEMI # Atrial flutter with rapid [...] was also started on apixaban due to [id number] score of 6, with no complications of bleeding after initiation. A referalis being placed for outpatient cardiac rehab. He should follow-up with cardiology in two months. # Acute Hypoxemic respiratory failure/Volume overload/ #Acute HFrEF: Mr. Bolden required high flow oxygen on [...] night,and patient reported a history of ARIELLA. [place] Sleepiness Scale was notable for increased sleepiness; [...] his PCP in the next few days. # Transplanted kidney/RAY on CKD Stage 3: Mr. Bolden presented with a creatinine of 1.99, elevated from his baseline of 1.2. Tacrolimus level acceptable. He had also been complaining of decreased urine output. It was felt that RAY was likely due to decreased perfusion from NSTEMI and atrial flutter with rapid ventricular response. Prior to his catheterization, Mr. Bolden was given fluids withbicarb for renal protection in the setting of [...] at discharge due to his underlying CKD. Vital Signs at Discharge: BP: 150/57, Heart Rate: 50, Temp: 36.8 ??C (98.2 ??F), Resp: 22, BMI (Calculated): 32.63 Height: 180.3 cm (5' 11) (01/31/19 1110) Weight: 107 kg (235 lb 14.3 oz) (02/03/19 0431) Functional and Cognitive Status: No functional or cognitive issues identified Important Studies and Lab Data: Labs: Recent Labs 02/04/1933902/03/19 0634 02/02/19 1815 02/02/19 0612 WBC 9.8* 8.9 -- 9.7* HGB 14.1 12.8* -- 14.0 HCT 41.9 38.0* 41.0 42.4 PLATELET 247 200 -- 206 Recent Labs 02/04/19 19302/04/19 0340 02/03/19 0634 NA 142 139 137 K 3.4* 3.8 3.4* CL 98 98 101 CO2 31 28 26 BUN 20 21* 22* CREATININE 1.43 1.56* 1.44 Recent Labs 01/31/19 0946 AST 19 ALT 22 ALKPHOS 68 BILITOT 2.8* Recent Labs 02/05/19 0747 02/04/19193402/04/190 02/03/19 0634 01/31/19 0946 CALCIUM -- 9.2 8.7 8.4* < > 10.3 MAGNESIUM 0.67* -- 0.69 0.71 < > 0.76 PHOS -- -- -- -- -- 3.7 < > = values in this interval not displayed. Recent Labs 02/01/19 1650 02/01/19 0740 01/31/19 2333 01/31/19 1620 CK -- -- -- 127 TROPONINT 0.08* 0.08* 0.07* 0.04* No results for input(s): PT, PTT, INR in the last 168 hours. Studies: Cardiac Catheterization 02/02: LM: mild LAD: mild LCx: mild, OM ostial 90% RCA: mild Stent placed into the ostial OM lesion Total of 35cc of contrast ?? STAT CXR 02/02/19 16:11 No interval change. Mild pulmonary edema ?? EKG 02/01/19 Sinus rhythm with Premature atrial complexes Left axis deviation ST & T wave abnormality, consider anterolateral ischemia Abnormal ECG When compared with ECG of 31-JAN-2019 18:31, (unconfirmed) Atrial bigeminy is no longer present ?? CXR 02/01/19 22:52: Pulmonary vascular congestion and edema likely with trace bilateral effusions. ?? CXR 02/01/19 00:08 Pulmonary vascular congestion and edema with trace bilateral pleural effusions.? Transthoracic Echocardiogram 02/01/19 1. The left ventricular chamber size is normal. ??Mild concentric left ventricular hypertrophy is observed. ??Global left ventricular systolic function is moderately reduced. ??Ejection fraction is estimated to be 30%. with beat to beat variation. ??There is diffuse hypokinesis present. ?Doppler assessment is consistent with elevated left sided filling pressure. 2. Right ventricular chamber size, wall thickness, and systolic function are within normal limits. ??The estimated pulmonary artery systolic pressure is 48 mmHg. ??The estimated right atrial pressure is 15 mmHg. 3. The left atrium is severely dilated. 4. There is mild to moderate (1-2+/4+) mitral regurgitation present. 5. There is mild to moderate (1-2+/4+) tricuspid regurgitation present. 6. See remainder of report for additional findings. 7. Compared to the prior study from 2014, there has been a significant decrement in LV function. ?? CXR 01/31/19 12:47 Small bilateral pleural effusions. No overt pulmonary edema. ?? EKG 01/31/19 Atrial flutter with 2:1 A-V conduction Left anterior fascicular block Nonspecific ST and T wave abnormality Abnormal ECG When compared with ECG of 04-NOV-2017 12:43, Significant changes have occurred ?? US Renal Transplant Left 01/31/19 1. ??Left lower quadrant renal transplant shows normal ??corticomedullary ??differentiation. No collecting system dilatation or peritransplant ??collection ??identified. ??2. ??Normal intrarenal arcuate artery resistive indices. ??3. ??Interrogated main renal artery and vein are patent. Pending Studies and Lab Data: none Discharge Conditions/Prognosis: Upon discharge the pt is hemodynamically stable, fully ambulatory without requiring supplemental oxygen, afebrile and pain free. Discharge to: home Updated Allergies/ADRs: No Known Allergies Immunizations Given [...] Medications: Your Medications New Medications Dose Details apixaban 5 mg Tab Commonly known as: ELIQUIS Take 1 tablet by mouth 2 times daily for 30 days. 5 mg Quantity: 60 tablet Refills: 0 aspirin 81 mg Chew Take 81 mg by mouth daily. Start taking on: 02/06/2019 81 mg Quantity: 30 tablet Refills: 3 atorvastatin 40 mg Tab Commonly known as: LIPITOR Take 1 tablet by mouth every evening. 40 mg Quantity: 90 tablet Refills: 3 glipiZIDE 5 mg Tab Commonly known as: GLUCOTROL Take 0.5 tablets by mouth 2 times daily (before meals). Replaces: glipiZIDE 5 mg Tr24 2.5 mg Quantity: 30 tablet Refills: 12 metoprolol succinate 25 mg Tablet sr Commonly known as: TOPROL-XL Take 1 tablet by mouth daily. 25 mg Quantity: 30 tablet Refills: 12 nitroGLYcerin 0.4 mg Subl Commonly known as: NITROSTAT Place 1 tablet under the tongue every 5 minutes as needed for Chest pain. 0.4 mg Quantity: 90 tablet Refills: 12 Continued medications, unchanged Dose Details acetaminophen 500 mg Tab Commonly known as: TYLENOL Take 1,000 mg by mouth every 8 hours as needed for Pain. 1000 mg Refills: 0 ascorbic acid 500 mg Tab Commonly known as: Vitamin C Take 1 tablet by mouth 3 times daily. 500 mg Quantity: 30 tablet Refills: 3 calciTRIol 0.5 mcg Cap Commonly known as: ROCALTROL TAKE ONE CAPSULE BY MOUTH EVERY DAY Quantity: 90 capsule Refills: 3 clopidogrel 75 mg Tab Commonly known as: PLAVIX Take 75 mg by mouth daily. 75 mg Refills: 0 levothyroxine 137 mcg Tab Commonly known as: SYNTHROID Take 137 mcg by mouth daily. 137 mcg Refills: 0 Magnesium Gluconate 27 mg magnesium (500 mg) Tab TAKE TWO TABLETS BY MOUTH TWICE A DAY Quantity: 360 tablet Refills: 3 mycophenolate 250 mg Cap Commonly known as: CELLCEPT Take 1 capsule by mouth 2 times daily. Kidney Transplant ICD Code Z94.0 250 mg Quantity: 60 capsule Refills: 8 polyethylene glycol 17 gram Pwpk Commonly known [...] daily. 0.4 mg Refills: 0 STOPPED Medications glipiZIDE 5 mg Tr24 Commonly known as: GLUCOTROL XL Replaced by: glipiZIDE 5 mg Tab Smoking Status at Discharge: Social History Tobacco Use Smoking Status Current Some Day Smoker ??? Types: Cigars ??? Last attempt to quit: 01/02/2015 ??? Years since quittin.0 Smokeless Tobacco Never Used Tobacco Comment cigars, one weekly Instructions Given to Patient at Discharge: Patient Instructions You were admitted to the hospital because of an NSTEMI, a type of heart attack. This was treated with medications to thin your blood to prevent clots, and by having cardiology place a stent in the vessel that was partially blocked. Now that you are going home, you are being started on several newmedications. ?? Please take a baby aspirin (aspirin 81mg) daily for one month. You should also continue your clopidogrel (Plavix) which you had been taking before your hospitalization ?? We also started you on a medication called metoprolol. Metoprolol helps slow down your heart rate, which is helpful since you had an episode of atrial flutter. In atrial flutter, the top part ofyour heart doesn't pump blood well, and can cause your heart to beat very fast. You should take this medicine everyday. ?? When you have an episode of atrial flutter, the blood in your heart doesn't pump well, and clotscan form. Because of this, you were also started on apixaban to help thin out the blood. You shouldtake this twice a day. ?? We have started you on a medication called nitroglycerin which you can take as needed if you experience chest pain. This medication can cause headaches. We also changed your diabetes medication. Before your hospitalization, you were taking a long-acting version of glipizide. The long-acting version isn't the best for your kidneys, so we switched you to a shorter acting version which you should take twice a day. Please return to the hospital if you begin to experience signs of increased bleeding (such as bloodin your stool, tarry looking stools, or vomiting up material that looks like blood of coffee grounds). You should also return if you are having difficulty breathing, shortness of breath, chest pain, or sudden worsening in heartburn with sweating. You should schedule an appointment to see your PCP next week. You should also follow-up with Dr. Eagle in two weeks, and cardiology in two months. General Instructions Occupational Therapy Recommendations at Discharge ?? Recommend home with family assist as needed. as of 02/04/2019 Future Appointments and Orders Future Orders Complete By Expires Referral to Cardiac Rehab [CAE093 Custom] As directed Process Instructions: If no progress note charted, please enter Clinical details in comments. Scheduling Instructions: Questions: My question or request is: Pt will participate in cardiac rehab @ [facility] Referral to Home Health - at DISCHARGE [[id number] CPT(R)] As directed Process Instructions: Scheduling Instructions: Comments: DOCUMENTATION FOR VNA SERVICES (INCLUDING THOSE PATIENTS WITH MEDICARE COVERAGE REQUIRING HOME VNA SERVICES AND/OR HOSPICE SERVICES) PATIENT'S LOCATION: Ethel Bolden [address] [place], [place] [address] [place] [address] (home) Cell: Telephone Information: Yarn Tester's Name: Patient In discussion with the attending physician, it is certified that this patient is under their care and that they, or a Nurse Practitioner,Clinical Nurse specialist or Physician Antique Collector who is working directly with them, had a face to face encounter that meets the physician face to face encounter requirements with this patient on 02/04/2019 The encounter with the patient was in whole, or in part, for the following medical condition, whichis the primary reason for home health care services: NSTEMI In discussion with the provider, it is certified that, based on their findings, the following services are medically necessary for home health services. To provide the following care/treatments with the clinical findings supporting the need for services as follows: HOME CARE ORDERS: RN ORDERS:Assess wound or incision, vital signs, daily weights, cardiopulmonary status, nutrition, hydration, elimination, meds effectiveness and management; reinforce education re health issues PT ORDERS: Continue rehab for endurance, gait stability and strength with mobility and transfers. Home safety evaluation. Home exercise program if appropriate. OT: assess and continue rehab for managing ADL's. HOME HEALTH CARE AGENCY: [facility]. PHONE: [phone] FAX: [phone] Start of care: 24-48hrs upon discharge FOR MEDICARE ONLY: (please delete this section if not Medicare) In discussion with the attending physician, it is certified that the clinical findings support thatthis patient is homebound because absences from home require considerable and taxing effort due to:Heart Failure Please note that any additional orders needs or changes will need to be obtained from this patient's PCP: Urbano Denis DO [address] / [place] [address] All VNA agencies which cover the area of patient's residence have been reviewed, either verbally greg writing, and patient/family have chosen the home health care agency noted Questions: Agency name and contact information: [facility] Patient location post discharge: Home What services are requested: Registered Nurse Physical Therapy Occupational Therapy Start date: Responsible MD post discharge contact info: PCP Discharge References/Attachments None documented in this encounter Discharge Instructions * Discharge Instructions* Lee Ann hTomas OT - 02/04/2019 2:14 PM EDT Occupational Therapy Recommendations at Discharge ?? Recommend home with family assist as needed. as of 02/04/2019 * Patient Instructions* Danny Hicks MD - 02/05/2019 12:53 PM EDT You were admitted to the hospital because of an NSTEMI, a type of heart attack. This was treated with medications to thin your blood to prevent clots, and by having cardiology place a stent in the vessel that was partially blocked. Now that you are going home, you are being started on several newmedications. ?? Please take a baby aspirin (aspirin 81mg) daily for one month. You should also continue your clopidogrel (Plavix) which you had been taking before your hospitalization ?? We also started you on a medication called metoprolol. Metoprolol helps slow down your heart rate, which is helpful since you had an episode of atrial flutter. In atrial flutter, the top part ofyour heart doesn't pump blood well, and can cause your heart to beat very fast. You should take this medicine everyday. ?? When you have an episode of atrial flutter, the blood in your heart doesn't pump well, and clotscan form. Because of this, you were also started on apixaban to help thin out the blood. You shouldtake this twice a day. ?? We have started you on a medication called nitroglycerin which you can take as needed if you experience chest pain. This medication can cause headaches. We also changed your diabetes medication. Before your hospitalization, you were taking a long-acting version of glipizide. The long-acting version isn't the best for your kidneys, so we switched you to a shorter acting version which you should take twice a day. Please return to the hospital if you begin to experience signs of increased bleeding (such as bloodin your stool, tarry looking stools, or vomiting up material that looks like blood of coffee grounds). You should also return if you are having difficulty breathing, shortness of breath, chest pain, or sudden worsening in heartburn with sweating. You should schedule an appointment to see your PCP next week. You should also follow-up with Dr. Eagle in two weeks, and cardiology in two months. documented in this encounter Medications at Time [...] Take 137 mcg by mouth daily. apixaban (ELIQUIS) 5 mg Tablet Take 1 [...] of this encounter Progress Notes * Shannan Aguillon RN - 02/05/2019 4:04 PM EDT Pt discharged to [facility] via wheelchair, accompanied by and RN. Belongings with patient. AVS reviewed. * Danny Hicks MD - 02/05/2019 2:20 PM EDT Hospital Medicine - Attending Day of Discharge Documentation Discharge diagnosis Active Hospital Problems Diagnosis ??? Atrial fibrillation with RVR - had flutter initially, then fib Resolved Hospital Problems No resolved problems to display. Secondary Issues Active Non-Hospital Problems Diagnosis ??? Hydronephrosis ??? S/P R TKA 11/25/17 Dr. Moschetti ??? Obesity (BMI 30.0-34.9) ??? Debility ??? Pain of right lower extremity ??? Vitamin D deficiency ??? 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 CAH (chronic active hepatitis) ??? Immunosuppression ??? Type 2 diabetes mellitus with complication, without long-term current use of insulin ??? Weight increase ??? Sepsis ??? Kidney replaced by transplant ??? Encounter for long-term (current) use of other medications ??? Aftercare following organ transplant ??? Dehydration ??? Ureteral stricture ??? Bacteremia due to coagulase-negative Staphylococcus ??? Fever ??? UTI (urinary tract infection) [...] they are ready for discharge. I spent <30 minutes (Day of Discharge Code 13887) involved in the final examination of the patient, discussion of the hospital stay, instructions for continuing care to all relevant caregivers, and preparation of discharge records, prescriptions and referral forms. Plans ? Discharge to home ? Follow-up to be scheduled with cardiology, PCP and transplant medicine ? Please see the Discharge Summary for complete details of any medication changes and additional plans. Danny Hicks MD * Alessandro Limon DO - 02/04/2019 4:42 PM EDT HOSPITAL MEDICINE ATTENDING DAILY PROGRESS NOTE Patient: Ethel Bolden, 1950, [id number] Physician: Alessandro Limon DO, Pager: [phone], Hospital Medicine Service Admit Date: 01/31/2019 Date of Service: February 04, 2019 Hospital Day: 4 PCP: Urbano Denis DO, ASSESSMENT/PLAN: Active Hospital Problems Diagnosis ??? Atrial fibrillation with RVR - had flutter initially, then fib Resolved Hospital Problems No resolved problems to display. 1. NSTEMI/HTN: Underwent cardiac catheterization 02/02/2019. Stent to 90% occluded OM1 reportedly. Cardiology recommending dual antiplatelet therapy with anticoagulation for 3. Continue on ASA, clopidogrel, and apixaban. TTE shows segmental wall motion abnormalities with formal TTE read pending. Troponin peaked at 0.08. Continue beta-blockade for heart rate control, aspirin, clopidogrel, and startstatin. 2. Hypoxemic respiratory failure/Volume overload/HFrEF: Multifactorial volume overload and resultant hypoxemic respiratory failure from IVF administration in setting of HFrEF and atrial fibrillation with rapid ventricular response. Continues to have hypoxia especially with lying flat. Dramatic response to furosemide gtt overnight. Remains hypoxic, though less so today. Stopped furosemide gtt and encourage mobilization as creatinine started to rise this morning, likely from volume loss due to diuresis. Heart rates well controlled with home medications. Wean FiO2 to keep SaO2>87%. May have component of ARIELLA with positive ARIELLA questionnaire screening. 3. Atrial flutter with rapid ventricular response: Heart rate controlled with home diltiazem and addition of metoprolol. On heparin drip to transition to rivaroxaban today. Elevated CHADS2-Vasc of 6. 4. Transplanted kidney/RAY on CKD Stage 3: Creatinine improving. Follow-up with transplant medicinehere. Tacrolimus level acceptable. Appreciate transplant medicine assistance. Concern that RAY may be due to NSTEMI and atrial fibrillation with rapid ventricular response. Renally adjust medicationsand avoid further nephrotoxins. Strict I/Os and daily standing weights. 5. DM2: Blood sugars well controlled on current regimen. We will continue to follow. 6. DVT Prophylaxis: heparin gtt to be converted to apixaban today CODE STATUS: FULL RESOLVED PROBLEMS: NONE Disposition: Home when O2 requirements resolved. SUBJECTIVE: Feeling well and asking to go home. Urinated all night with furosemide gtt. OBJECTIVE: Last value Range last 24 hrs Temp: 37.2 ??C (98.9 ??F) Temp: [36.9 ??C (98.4 ??F)-37.2 ??C (98.9 ??F)] Heart Rate: 52 Heart Rate: [52-59] BP: 139/48 BP: (139-152)/(47-52) Resp: 20 Resp: [19-21] SpO2: (!) 88 % SpO2: [85 %-95 %] O2 Flow Rate (L/min): 1.5 L/min I/O last 1 completed shift: In: - Out: 4900 [Urine:4900] Intake/Output Summary (Last 24 hours) at 02/04/2019 1642 Last data filed at 02/04/2019 1308 Gross per 24 hour Intake -- Output 5930 ml Net -5930 ml Patient Vitals for the past 168 hrs: Weight 02/03/19 0431 107 kg (235 lb 14.3 oz) 02/02/19 0613 107.8 kg (237 lb 9.6 oz) 02/01/19 0624 107.1 kg (236 lb 3.2 oz) 01/31/19 1110 106.1 kg (234 lb) Body mass index is 32.9 kg/m??. GEN: awake, alert, NAD HEENT: PERRLA, EOMI, MMM, trachea midline, no JVD CHEST: Rales B/L (~1/[address] way up bilaterally), no W/R, no accessory muscle use HEART: irregular rate and rhythm, S1S2, no M/R/G, trace B/L LE edema ABD/PEL: soft, NT, ND, +BS EXT: no clubbing or cyanosis, no erythema PSYCH/NEURO: appropriate affect and cognition, OX3 LABS/IMAGING: Recent Labs 02/04/1933902/03/19 0634 02/02/19 0612 NA 139 137 138 K 3.8 3.4* 3.8 CL 98 101 100 CO2 28 26 25 BUN 21* 22* 29* CREATININE 1.56* 1.44 1.64* CALCIUM 8.7 8.4* 8.9 MAGNESIUM 0.69 0.71 0.74 Recent Labs 02/04/19 0340 02/03/19 0634 02/02/19 1815 02/02/19 0612 WBC 9.8* 8.9 -- 9.7* HGB 14.1 12.8* -- 14.0 HCT 41.9 38.0* 41.0 42.4 MCV 91.3 93.8* -- 93.8* PLATELET 247 200 -- 206 No results for input(s): PT, INR, PTT in the last 72 hours. CONSULTANTS: IP CONSULT TO CARDIOLOGY IP CONSULT TO CARDIAC REHAB IP CONSULT TO OCCUPATIONAL THERAPY IP CONSULT TO PHYSICAL THERAPY MEDICATIONS: SCHEDULED ??? apixaban 5 mg Oral BID ??? aspirin 81 mg Oral Daily ??? atorvastatin 40 mg Oral QPM ??? ascorbic acid 500 mg Oral TID ??? calciTRIol 0.5 mcg Oral Every Other Day ??? clopidogrel 75 mg Oral Daily ??? glipiZIDE 5 mg Oral Daily with breakfast ??? levothyroxine 137 mcg Oral Daily ??? mycophenolate 250 mg Oral BID ??? potassium phosphate (monobasic) 1,000 mg Oral BID ??? tacrolimus 2 mg Oral QAM And ??? tacrolimus 1 mg Oral Nightly ??? tamsulosin 0.4 mg Oral Daily ??? sodium chloride 0.9 % (flush) 5 mL Intravenous BID ??? insulin lispro 1-4 Units Subcutaneous TID AC ??? pantoprazole 40 mg Oral Daily ??? metoprolol 12.5 mg Oral Q6H JUAN R PRN ipratropium-albuterol 3 mL 4 Times Daily PRN acetaminophen 1,000 mg Q8H PRN polyethylene glycol 17 g Daily PRN sodium chloride 0.9 % (flush) 5-20 mL Q1 Min PRN lidocaine 0.3 mL Once PRN Glucose 40% oral gel 15-30 g Q30 Min PRN Or dextrose 12.5-25 g Q1H PRN Or glucagon (human recombinant) 1 mg Q1H PRN prochlorperazine 5 mg Q4H PRN nitroGLYcerin 0.4 mg Q5 Min PRN DIET: Daily Healthy Menu Choices/Cardiac diet ([facility]-Diet) IPI Certification I certify that I am a D-H credentialed attending provider with admitting privileges and that the patient meets or has met medical necessity to require an inpatient IPI level of care meeting a minimumof two midnights or is on the [facility] inpatient only procedure list (status C) due to: monitoring of fluid status given an inability to regulate fluid balance and the need for administration or restriction of fluids, acute kidney injury necessitating close monitoring of fluid balance such as intravenous fluids and/or titration of medication to achieve optimal effect and minimize the chance of immediate or severe side effects and NSTEMI Alessandro Limon DO [facility] Hospitalist 02/04/2019 4:42 PM * Mahsa Celestin RN - 02/04/2019 3:41 PM EDT Spoke with patient regarding VNA services, he asked me to speak with Mundo. This comic book writer calledHarpreetnicola and she asked for a referral to: [facility]. PHONE: [phone] FAX: [phone] Referral routed to the Dispensing Lead for matching with agency/vendor and to provide any required information. asked for an update from , MD made aware and will call. CM will continue to follow and assist with discharge planning and coordination of care as indicated. * Mahsa Celestin RN - 02/04/2019 1:19 PM EDT Chart reviewed, care reviewed with primary team and at interdisciplinary rounds. Patient trialing off oxygen today. PT/OT to evaluate patient. Patient has declined VNA services. Plan for discharge is home. CM will continue to follow and assist with discharge planning and coordination of care as indicated. An Important Message From Medicare about Your Rights letter reviewed with pt and pt signed acknowledgment and was provided copy. * Alessandro Limon DO - 02/03/2019 5:02 PM EDT HOSPITAL MEDICINE ATTENDING DAILY PROGRESS NOTE Patient: Ethel Bolden, 1950, [id number] Physician: Alessandro Limon DO, Pager: [phone], Hospital Medicine Service Admit Date: 01/31/2019 Date of Service: February 03, 2019 Hospital Day: 3 PCP: Urbano Denis DO, ASSESSMENT/PLAN: Active Hospital Problems Diagnosis ??? Atrial fibrillation with RVR - had flutter initially, then fib Resolved Hospital Problems No resolved problems to display. 1. NSTEMI/HTN: Underwent cardiac catheterization yesterday. Stent to 90% occluded OM1 reportedly. Cardiology recommending dual antiplatelet therapy with anticoagulation for 3. TTE shows segmental wall motion abnormalities with formal TTE read pending. Troponin peaked at 0.08. Continue beta-blockadefor heart rate control, aspirin, clopidogrel, heparin drip, and start statin. 2. Hypoxemic respiratory failure/Volume overload/HFrEF: Multifactorial volume overload and resultant hypoxemic respiratory failure from IVF administration in setting of HFrEF and atrial fibrillation with rapid ventricular response. Continues to have hypoxia especially with lying flat. Discussed with Dr. Eagle who would prefer a furosemide drip over bolus dosing due to its decreased risk of causing renal perfusion. Will start this drip at 10 mg/hr. Follow for effect in the morning. Could be increased to 20 mg/hr if needed. Heart rates well controlled with home medications. Wean FiO2 to keep SaO2>87%. May have component of ARIELLA and will attempt screening questionnaire tomorrow. 3. Atrial flutter with rapid ventricular response: Heart rate controlled with home diltiazem and addition of metoprolol. On heparin drip to transition to rivaroxaban today. Elevated CHADS2-Vasc of 6. 4. Transplanted kidney/RAY on CKD Stage 3: Creatinine improving. Follow-up with transplant medicinehere. Tacrolimus level acceptable. Appreciate transplant medicine assistance. Concern that RAY may be due to NSTEMI and atrial fibrillation with rapid ventricular response. Renally adjust medicationsand avoid further nephrotoxins. Strict I/Os and daily standing weights. 5. DM2: Blood sugars well controlled on current regimen. We will continue to follow. 6. DVT Prophylaxis: heparin gtt to be converted to apixaban today CODE STATUS: FULL RESOLVED PROBLEMS: NONE Disposition: Unclear SUBJECTIVE: Feeling well this morning. No chest pain. No SOB or difficulty breathing. OBJECTIVE: Last value Range last 24 hrs Temp: 36.8 ??C (98.2 ??F) Temp: [36.7 ??C (98.1 ??F)-37 ??C (98.6 ??F)] Heart Rate: 54 Heart Rate: [53-75] BP: 170/87 BP: (101-175)/(33-131) Resp: 18 Resp: [16-28] SpO2: 96 % SpO2: [92 %-98 %] O2 Flow Rate (L/min): 5 L/min I/O last 1 completed shift: In: 378.7 [P.O.:320; I.V.:58.7] Out: 1205 [Urine:1205] Intake/Output Summary (Last 24 hours) at 02/03/2019 1714 Last data filed at 02/03/2019 1200 Gross per 24 hour Intake 378.67 ml Output 1580 ml Net -1201.33 ml Patient Vitals for the past 168 hrs: Weight 02/03/19 0431 107 kg (235 lb 14.3 oz) 02/02/19 0613 107.8 kg (237 lb 9.6 oz) 02/01/19 0624 107.1 kg (236 lb 3.2 oz) 01/31/19 1110 106.1 kg (234 lb) Body mass index is 32.9 kg/m??. GEN: awake, alert, NAD HEENT: PERRLA, EOMI, MMM, trachea midline, no JVD CHEST: Rales B/L (~1/[address] bilaterally), no W/R, no accessory muscle use HEART: irregular rate and rhythm, S1S2, no M/R/G, trace B/L LE edema ABD/PEL: soft, NT, ND, +BS EXT: no clubbing or cyanosis, no erythema PSYCH/NEURO: appropriate affect and cognition, OX3 LABS/IMAGING: Recent Labs 02/03/19 0634 02/02/19 0612 02/01/19 1504 NA 137 138 138 K 3.4* 3.8 4.1 CL 101 100 100 CO2 26 25 25 BUN 22* 29* 33* CREATININE 1.44 1.64* 2.05* CALCIUM 8.4* 8.9 8.9 MAGNESIUM 0.71 0.74 0.68* Recent Labs 02/03/19 0634 02/02/19 0612 02/01/19 0740 WBC 8.9 9.7* 9.6* HGB 12.8* 14.0 14.0 HCT 38.0* 42.4 41.2 MCV 93.8* 93.8* 91.6 PLATELET 200 206 206 No results for input(s): PT, INR, PTT in the last 72 hours. CONSULTANTS: IP CONSULT TO CARDIOLOGY IP CONSULT TO CARDIAC REHAB IP CONSULT TO OCCUPATIONAL THERAPY IP CONSULT TO PHYSICAL THERAPY MEDICATIONS: SCHEDULED ??? apixaban 5 mg Oral BID ??? aspirin 81 mg Oral Daily ??? atorvastatin 40 mg Oral QPM ??? ascorbic acid 500 mg Oral TID ??? calciTRIol 0.5 mcg Oral Every Other Day ??? clopidogrel 75 mg Oral Daily ??? glipiZIDE 5 mg Oral Daily with breakfast ??? levothyroxine 137 mcg Oral Daily ??? mycophenolate 250 mg Oral BID ??? potassium phosphate (monobasic) 1,000 mg Oral BID ??? tacrolimus 2 mg Oral QAM And ??? tacrolimus 1 mg Oral Nightly ??? tamsulosin 0.4 mg Oral Daily ??? sodium chloride 0.9 % (flush) 5 mL Intravenous BID ??? insulin lispro 1-4 Units Subcutaneous TID AC ??? pantoprazole 40 mg Oral Daily ??? metoprolol 12.5 mg Oral Q6H JUAN R PRN ipratropium-albuterol 3 mL 4 Times Daily PRN acetaminophen 1,000 mg Q8H PRN polyethylene glycol 17 g Daily PRN sodium chloride 0.9 % (flush) 5-20 mL Q1 Min PRN lidocaine 0.3 mL Once PRN Glucose 40% oral gel 15-30 g Q30 Min PRN Or dextrose 12.5-25 g Q1H PRN Or glucagon (human recombinant) 1 mg Q1H PRN heparin (porcine) 0-4,000 Units BOLUS HEPARIN PP prochlorperazine 5 mg Q4H PRN nitroGLYcerin 0.4 mg Q5 Min PRN DIET: Daily Healthy Menu Choices/Cardiac diet ([facility]-Diet) IPI Certification I certify that I am a D-H credentialed attending provider with admitting privileges and that the patient meets or has met medical necessity to require an inpatient IPI level of care meeting a minimumof two midnights or is on the [facility] inpatient only procedure list (status C) due to: monitoring of fluid status given an inability to regulate fluid balance and the need for administration or restriction of fluids, acute kidney injury necessitating close monitoring of fluid balance such as intravenous fluids and/or titration of medication to achieve optimal effect and minimize the chance of immediate or severe side effects and NSTEMI Alessandro Limon DO [facility] Hospitalist 02/03/2019 5:14 PM * Nika Starr M - 02/03/2019 7:58 AM EDT Inpatient Cardiology Consult Note Date of Consultation: 02/03/2019 Admit Date: 01/31/2019 Place of Service: 4E Responsible Attending: Dr. Singh Hospital Day 3 days Reason for Consult: We are seeing Ethel Bolden at the request of Dr. Singh. I have reviewed the available records, interviewed and examined the patient. elevated troponin Active Problems: Active Hospital Problems Diagnosis ??? Atrial fibrillation with RVR - had flutter initially, then fib Resolved Hospital Problems No resolved problems to display. HPI: Ethel Bolden is a 68 y.o. male with a history significant for HCV s/p treatment with harvoni, T2DM, HTN, ESRD s/p kidney transplant in 2015 c/b ureteral reconstruction and ?atrial fibrillation, current smoker who presented with poor urine output and lightheadedness. In the ED he was found to be in atrial flutter/fibrillation with rates in 150s, started on diltiazem gtt then converted to NSR;hypoxic requiring hi cody NC. Also with RAY of transplanted kidney. Admitted to hospital medicine where EKG showed lateral T wave inversions new from prior EKG and a troponin 0.04-->0.07. Subsequent echocardiogram showed a reduced ejection fraction (~35%) with lateral WMAs. After close discussion with transplant nephrology, patient underwent cardiac catheterization on 02/02 showing a 90% ostial OM lesions that was stented. He is now feeling well. On high cody though denies feeling short of breath. No chest pain. In-Patient Medications: ??? aspirin 81 mg Oral Daily ??? atorvastatin 40 mg Oral QPM ??? ascorbic acid 500 mg Oral TID ??? calciTRIol 0.5 mcg Oral Every Other Day ??? clopidogrel 75 mg Oral Daily ??? glipiZIDE 5 mg Oral Daily with breakfast ??? levothyroxine 137 mcg Oral Daily ??? mycophenolate 250 mg Oral BID ??? potassium phosphate (monobasic) 1,000 mg Oral BID ??? tacrolimus 2 mg Oral QAM And ??? tacrolimus 1 mg Oral Nightly ??? tamsulosin 0.4 mg Oral Daily ??? sodium chloride 0.9 % (flush) 5 mL Intravenous BID ??? insulin lispro 1-4 Units Subcutaneous TID AC ??? pantoprazole 40 mg Oral Daily ??? metoprolol 12.5 mg Oral Q6H JUAN R ??? heparin (porcine) 2,000 Units/hr (02/03/19 0232) Physical Exam: Last value Range last 8 hrs Temperature Temp: 36.7 ??C (98.1 ??F) Temp: [36.7 ??C (98.1 ??F)] Heart Rate Heart Rate: 63 Heart Rate: [63-75] Blood Pressure BP: 145/71 BP: (140-145)/(55-71) Respiratory Rate Resp: 22 Resp: [21-22] SpO2 SpO2: 94 % SpO2: [92 %-94 %] Intake/Output Summary (Last 24 hours) at 02/03/2019 0758 Last data filed at 02/03/2019 0400 Gross per 24 hour Intake 661.67 ml Output 2630 ml Net -1968.33 ml Wt & BMI By Encounter Date ED to Hosp-Admission (Current) from 01/31/2019 in Intermediate Cardiac Care Unit [facility] Office Visit from 09/15/2018 in Solid Organ Transplant at [place] Weight 107 kg (235 lb 14.3 oz) 1 02/03/2019 0431 105.2 kg (232 lb) [with clothes (224.0 without)] 1112 BMI 32.63 1 01/31/2019 1110 -- General: Pleasant male in NAD, sitting upright on side of bed Cardiac: RRR with frequent extra beats, S1/S2 of normal character and amplitude, no m/r/g. Respiratory: HIGH CODY NC in place. Dull breath sounds at bases, R>L. Mild crackles to mid-base lung. No wheezing. Abdominal: Obese, soft, non-tender Extremities: No atrophy, no clubbing/cyanosis, no LE edema, radial cath site c/d/i, no hematoma, hand warm Neurology: Without focal deficit ECG 02/02/19: Personally reviewed. NSR with PACs, LAFB, no acute ischemic changes ECHO 02/01/19: Personally reviewed. SUMMARY: 1. The left ventricular chamber size is normal. Mild concentric left ventricular hypertrophy is observed. Global left ventricular systolic function is moderately reduced. Ejection fraction is estimated to be 30%. with beat to beat variation. There is diffuse hypokinesis present. Doppler assessment is consistent with elevated left sided filling pressure. 2. Right ventricular chamber size, wall thickness, and systolic function are within normal limits. The estimated pulmonary artery systolic pressure is 48 mmHg. The estimated right atrial pressure is 15 mmHg. 3. The left atrium is severely dilated. 4. There is mild to moderate (1-2+/4+) mitral regurgitation present. 5. There is mild to moderate (1-2+/4+) tricuspid regurgitation present. 6. See remainder of report for additional findings. 7. Compared to the prior study from 2014, there has been a significant decrement in LV function. CXR 02/02/19: IMPRESSION No interval change. Mild pulmonary edema Coronary Angiogram 02/02/19: Conclusions: * One vessel coronary artery disease (LCX) * Elevated left ventricular end diastolic pressure * Successful stent insertion of the ostial OM1 lesion * Recommend continuing clopidogrel 75 mg PO daily for 12 months (see DAPT Recommendations above for more information.) Recent Labs 02/03/19 0634 02/02/19 0612 02/01/19 0740 WBC 8.9 9.7* 9.6* HGB 12.8* 14.0 14.0 HCT 38.0* 42.4 41.2 PLATELET 200 206 206 Recent Labs 02/03/19 0634 02/02/19 0612 02/01/19 1504 NA 137 138 138 K 3.4* 3.8 4.1 CL 101 100 100 CO2 26 25 25 BUN 22* 29* 33* CREATININE 1.44 1.64* 2.05* Recent Labs 01/31/19 0946 AST 19 ALT 22 ALKPHOS 68 BILITOT 2.8* Recent Labs 02/03/19 0634 02/02/19 0612 02/01/19 1504 01/31/19 0946 CALCIUM 8.4* 8.9 8.9 < > 10.3 MAGNESIUM 0.71 0.74 0.68* -- 0.76 PHOS -- -- -- -- 3.7 < > = values in this interval not displayed. No results for input(s): INR, PT, PTT in the last 168 hours. Recent Labs 02/01/19 1650 02/01/19 0740 01/31/19 2333 01/31/19 1620 CK -- -- -- 127 TROPONINT 0.08* 0.08* 0.07* 0.04* No results found for: PROBNP Assessment/Recommendations: 68 y.o. male with a history significant for HCV s/p treatment with harvoni, T2DM, HTN, ESRD s/p kidney transplant in 2016 c/b ureteral reconstruction and ?atrial fibrillation, current smoker who presented with poor urine output and lightheadedness found to have new cardiomyopathy, elevated troponinand atrial flutter with hypoxic respiratory failure. Patient has since self converted to NSR and israte controlled. He is s/p CUATE to OM and undergoing diuresis for vascular congestion and secondary respiratory failure. He will need triple therapy for his stent placement and atrial fibrillation. Given his renal dysfunction, recommend anticoagulation with eliquis or coumadin; triple therapy for 1 month then discontinue aspirin and continue plavix and anticoagulant. Low threshold to d/c aspirin earlier if he has evidence of bleeding. #NSTEMI - lateral EKG and WMAs on echo; now s/p CUATE to OM - continue ASA, plavix 75mg daily, atorvastatin 40mg daily - increase metoprolol as tolerated, holding for HR <60 BPM #Acute hypoxic respiratory failure: 2/2 pulmonary edema - IV diuresis per primary team #Cardiomyopathy: ischemic vs. tachymyopathy - s/p CUATE and now rate controlled - BB - recommend continued IV diuresis per primary team #Atrial fibrillation/flutter - history of prior episode in mary-op period; not anticoagulated at home; on rate control with diltiazem only - now in NSR with PACs - currently on heparin gtt; will need long term anticoagulation for CHADS-VASc of at least 4; recommend eliquis 5mg BID or coumadin - increase BB as above - maintain K>4, Mg >2 #RAY on CKD 3 of transplanted kidney: per primary #T2DM: per primary Case discussed with Dr. Phillip, addendum to follow. Cardiology will continue to follow. x Cardiology will sign off. Please do not hesitate to contact with questions/concerns. Nika Starr MD Cardiology PGY-[id number] [phone] Associated attestation - Destin Phillip MD - 02/03/2019 12:58 PM EDT Patient seen and examined, and I agree with the H&P, formulation and plan dictated by Dr. Starr. 68 presents with oliguria (hx of renal transplant) and was found to be in atrial fibrillation with RVr c/b hypoxic respiratory failure requiring HFNC. Workup demonstrated positive cardiac biomarker and TTE demonstrated EF of 35% with lateral akinesis (previous normal 2014). Cardiac cath 02/02 demonstrated significant OM1 lesion and he subsequently received PCI. He denies having chest pain, current dyspnea, and palpitations. He notes a history of atrial fibrillation (paroxysmal) in the past which he was given Eliquis for thromboembolic ppx and tolerated it well. He has had good response to lasix Exam is with bibasilar crackles, estimated RAP 10, rrr. EKG demonstrates NSR with PACs Regarding the atrial flutter/fib and recent stent for ACS c/b HF, it is reasonable to treat with DAPT + either coumadin or eliquis. He has not had any bleeding issues. Low threshold to discontinue ASA in that interim. At a month, can continue with plavix + either coumadin or eliquis. He still requires diuresis, and will defer to the primary team in conjunction with transplant nephrology for this management. Continue metoprolol for atrial fibrillation. Should have cardiology follow-up in 2 months Destin Phillip MD * Bryn Crowe RN - 02/03/2019 6:01 AM EDT OUTCOME EVALUATION NOTE: OUTCOME SUMMARY: Pt A+Ox4 on a venti mask at 12L 50%FiO2 satting 88-90 upon arrival to ICCU from Cath recovery. Pt continued to sustain spO2 at 87-89, respiratory paged and pt placed on high flow at 40 L/min FiO2 at 50%. FiO2 titrated as documented to keep SpO2 greater than 90% per MD order. SR with frequent PACs, SB, and SA on tele (see tele report). No complaints of CP. Slight SOB reported per pt. No reports ofpain or discomfort this shift. TR band removed per policy, R radial site CDI with no hematoma. Whaley in place and WNL. Heparin gtt maintained. Will continue to monitor. PLAN MOVING FORWARD: Titrate high flow to improve WOB Monitor kidney function Work up for ARIELLA D/C planning as appropriate INDIVIDUALIZED FALL PREVENTION INTERVENTIONS: Patient-specific fall risk factors per assessment: [current deficits]: Unfamiliar environment, telemetry, pulse ox, general weakness, oxygen tubing, iv lines Assistance [level of assistance required for transfers and ambulation]: SBA, non-slip socks Supervision [direct monitoring required during toileting and ADLs]: Eyes on Surveillance [continuous indirect monitoring]: Hourly purposeful rounding, call robles in reach; roomkept free of obstacles; Patient-specific fall prevention interventions for sensory deficits provided, if applicable: Lighting adjusted to task/safety CPG GOAL OUTCOME EVALUATION: Ongoing * Dario Peñaloza RCP - 02/03/2019 12:27 AM EDT Respiratory Therapy Heated Humidified High Flow INDICATIONS: High O2 requirement and Work of breathing HIGH FLOW SETTINGS: Interface: High flow nasal cannula Flow: 40 L/min FiO2: 50 % VITAL SIGNS: HR: 55 RR: 20 SpO2: 94 % SKIN ASSESSMENT: CURRENT MEDICATIONS: , Patient place back on HHFNC for wob and o2. Will continue to monitor. Dario Peñaloza RCP * Alessandro Limon DO - 02/02/2019 3:47 PM EDT [facility] MEDICINE ATTENDING DAILY PROGRESS NOTE Patient: Ethel Bolden, 1950, [id number] Physician: Alessandro Limon DO, Pager: [phone], Hospital Medicine Service Admit Date: 01/31/2019 Date of Service: February 02, 2019 Hospital Day: 2 PCP: Urbano Denis DO, ASSESSMENT/PLAN: Active Hospital Problems Diagnosis ??? Atrial fibrillation with RVR - had flutter initially, then fib Resolved Hospital Problems No resolved problems to display. 1. NSTEMI/HTN: Discussed with cardiology today and appreciate their assistance. Plan for cardiac catheterization this afternoon to evaluate lateral ischemia seen on EKG with relief with nitroglycerin. Their initial read of the statin TTE, there appears to be segmental wall motion abnormalities. Formal TTE read pending. Troponin peaked at 0.08. trending upwards though remain mildly elevated. Plan would be for cardiac catheterization if his renal function will allow. Discussed with Dr. Eagle,transplant medicine, who prefers that hydration given prior to this dye load. Continue beta-blockade for heart rate control, aspirin, clopidogrel, heparin drip, and start statin. 2. Hypoxemic respiratory failure/Volume overload/HFrEF: Multifactorial volume overload and resultant hypoxemic respiratory failure from IVF administration in setting of HFrEF and atrial fibrillation with rapid ventricular response. Heart rates now well controlled with home medications and hypoxemiaimproved. Acute onset, asymptomatic hypoxia noted this afternoon, worse in supine positioning. Improved with upright positioning, DuoNeb, and furosemide. Wean FiO2 to keep SaO2>94%. May have component of ARIELLA and will attempt screening questionnaire tomorrow. 3. Atrial flutter with rapid ventricular response: Heart rate not controlled with home diltiazem and addition of metoprolol. On heparin drip as above. Elevated CHADS2-Vasc of 6. 4. Transplanted kidney/RAY on CKD Stage 3: Follow-up with transplant medicine here. Tacrolimus level acceptable. Appreciate transplant medicine assistance. Creatinine falling this morning. Concern that RAY may be due to NSTEMI and atrial fibrillation with rapid ventricular response. Renally adjust medications and avoid further nephrotoxins. Strict I/Os and daily standing weights. 5. DM2: Blood sugars well controlled on current regimen. We will continue to follow. 6. DVT Prophylaxis: heparin gtt CODE STATUS: FULL RESOLVED PROBLEMS: NONE Disposition: Unclear SUBJECTIVE: Feeling well this morning. No chest pain. No SOB or difficulty breathing since furosemide dosing. OBJECTIVE: Last value Range last 24 hrs Temp: 37 ??C (98.6 ??F) Temp: [36.7 ??C (98.1 ??F)-37.6 ??C (99.7 ??F)] Heart Rate: 69 Heart Rate: [52-158] BP: (!) 145/33 BP: (134-175)/(33-131) Resp: 22 Resp: [16-40] SpO2: 98 % SpO2: [80 %-100 %] O2 Flow Rate (L/min): 12 L/min I/O last 1 completed shift: In: 283 [P.O.:90; I.V.:193] Out: 1425 [Urine:1425] Intake/Output Summary (Last 24 hours) at 02/02/20192058 Last data filed at 02/02/20191909 Gross per 24 hour Intake 403 ml Output 3025 ml Net -2622 ml Patient Vitals for the past 168 hrs: Weight 02/02/19 0613 107.8 kg (237 lb 9.6 oz) 02/01/19 0624 107.1 kg (236 lb 3.2 oz) 01/31/19 1110 106.1 kg (234 lb) Body mass index is 33.14 kg/m??. GEN: awake, alert, NAD HEENT: PERRLA, EOMI, MMM, trachea midline, no JVD CHEST: Rales at bases B/L, no W/R, no accessory muscle use HEART: irregular rate and rhythm, S1S2, no M/R/G, trace B/L LE edema ABD/PEL: soft, NT, ND, +BS EXT: no clubbing or cyanosis, no erythema PSYCH/NEURO: appropriate affect and cognition, OX3 LABS/IMAGING: Recent Labs 02/02/19 0612 02/01/19 1504 02/01/19 0310 01/31/19 0946 NA 138 138 140 < > 136 K 3.8 4.1 3.3* < > 4.5 CL 100 100 108* < > 96* CO2 25 25 21* < > 26 BUN 29* 33* 29* < > 30* CREATININE 1.64* 2.05* 1.66* < > 1.99* CALCIUM 8.9 8.9 7.1* < > 10.3 MAGNESIUM 0.74 0.68* -- -- 0.76 PHOS -- -- -- -- 3.7 < > = values in this interval not displayed. Recent Labs 02/02/19 0612 02/01/19 0740 02/01/19 0310 WBC 9.7* 9.6* 10.5* HGB 14.0 14.0 13.5* HCT 42.4 41.2 39.7* MCV 93.8* 91.6 91.7 PLATELET 206 206 215 No results for input(s): PT, INR, PTT in the last 72 hours. CXR (02/02/2019): There is no interval change. Again noted are low lung volumes and diffuse vascularblurring likely due to mild pulmonary edema and atelectasis. CONSULTANTS: IP CONSULT TO CARDIOLOGY IP CONSULT TO CARDIAC REHAB MEDICATIONS: SCHEDULED ??? aspirin 81 mg Oral Daily ??? atorvastatin 40 mg Oral QPM ??? ascorbic acid 500 mg Oral TID ??? calciTRIol 0.5 mcg Oral Every Other Day ??? clopidogrel 75 mg Oral Daily ??? glipiZIDE 5 mg Oral Daily with breakfast ??? levothyroxine 137 mcg Oral Daily ??? mycophenolate 250 mg Oral BID ??? potassium phosphate (monobasic) 1,000 mg Oral BID ??? tacrolimus 2 mg Oral QAM And ??? tacrolimus 1 mg Oral Nightly ??? tamsulosin 0.4 mg Oral Daily ??? sodium chloride 0.9 % (flush) 5 mL Intravenous BID ??? insulin lispro 1-4 Units Subcutaneous TID AC ??? pantoprazole 40 mg Oral Daily ??? metoprolol 12.5 mg Oral Q6H JUAN R PRN acetaminophen 1,000 mg Q8H PRN polyethylene glycol 17 g Daily PRN sodium chloride 0.9 % (flush) 5-20 mL Q1 Min PRN lidocaine 0.3 mL Once PRN Glucose 40% oral gel 15-30 g Q30 Min PRN Or dextrose 12.5-25 g Q1H PRN Or glucagon (human recombinant) 1 mg Q1H PRN heparin (porcine) 0-4,000 Units BOLUS HEPARIN PP prochlorperazine 5 mg Q4H PRN nitroGLYcerin 0.4 mg Q5 Min PRN DIET: NPO diet (Give Meds) IPI Certification I certify that I am a D-H credentialed attending provider with admitting privileges and that the patient meets or has met medical necessity to require an inpatient IPI level of care meeting a minimumof two midnights or is on the [facility] inpatient only procedure list (status C) due to: monitoring of fluid status given an inability to regulate fluid balance and the need for administration or restriction of fluids, acute kidney injury necessitating close monitoring of fluid balance such as intravenous fluids and/or titration of medication to achieve optimal effect and minimize the chance of immediate or severe side effects and NSTEMI Alessandro Limon DO 2500 Hospitalist 02/02/2019 8:59 PM * Yamile Montoya RCP - 02/02/2019 8:46 AM EDT Respiratory Therapy Heated Humidified High Flow INDICATIONS: High O2 requirement HIGH FLOW SETTINGS: Interface: (S) Nasal cannula(HFNC on standby ) Flow: 6 L/min FiO2: 50 % VITAL SIGNS: HR: 71 RR: 22 SpO2: 95 % SKIN ASSESSMENT: WDL ASSESSMENT: Pt seen this morning for RT assessment On arrival pt sitting up at EOB on 6L NC SPO2 95-96% RR ~ 22 HFNC at bedside on standby At this time patient states pt breathing was fine and wanted to remain on low flow NC ~11:00 RN placed pt back on HFNC Due to increase oxygen requirements SPO2 87-89 % Pt placed on 45L/min and 50% FIO2 , RT aware, SPO2 91-93% ~15:20 RN paged , RT pt having increase oxygen requirements up to 80% FIO2 on HFNC MD at bedside, Pt sitting at EOB RR ~32 on 45L/min and 80% FIO2 SPO2 98% FIO2 weaned to 70% , ABG obtained results 7.46//22 FIO2 weaned to 55% SPO2 95% after wean ~17:00 Pt placed on 100% Non re breather for transport to [employer] PLAN: RT will cont to support and follow Yamile Montoya RCP * Sharon Boo RCP - 02/02/2019 1:52 AM EDT Respiratory Therapy Heated Humidified High Flow INDICATIONS: High O2 requirement HIGH FLOW SETTINGS: Interface: High flow nasal cannula Flow: 55 L/min FiO2: 50 % VITAL SIGNS: HR: 60 RR: 28 SpO2: 92 % ASSESSMENT: Patient able to wear 6L NC throughout the day. Paged to place patient back on high flowat 2343 for SpO2 < 90%. Initially placed on mask at 60L 50%. 0320 patient no longer able to tolerate mask, requesting cannula. Placed on HFNC 55L 50%. Patient complains that it's too much pressure, but agreeable to wearing it. PLAN: Wean settings as tolerated. Sharon Boo RCP * Polina Glaser RN - 02/01/2019 11:41 PM EDT Pt epressed SOB and wheezing. Requesting venti mask. Placed on 8L venti mask desat to 86%. CORROSION ENGINEER Giselle notified. Nebulizer ordered with minimal effect. Chest xray obtained. Pt place on 12L 50% venti.RT notified requesting hi-flow. Pt continued to desat. Placed on nonrebreather sating 89%. CORROSION ENGINEER notified. Nonrebreather only set to 50% fiO2 via hi flow stand. Came to bedside to assess. 2343- RT at bedside 2346- life safety at bedside * Alessandro Limon DO - 02/01/2019 4:28 PM EDT [facility] MEDICINE ATTENDING DAILY PROGRESS NOTE Patient: Ethel Bolden, 1950, [id number] Physician: Alessandro Limon DO, Pager: [phone], Hospital Medicine Service Admit Date: 01/31/2019 Date of Service: February 01, 2019 Hospital Day: 1 PCP: Urbano Denis DO, ASSESSMENT/PLAN: Active Hospital Problems Diagnosis ??? Atrial fibrillation with RVR - had flutter initially, then fib Resolved Hospital Problems No resolved problems to display. 1. NSTEMI/HTN: Discussed with cardiology today and appreciate their assistance. Symptoms could alsobe explained by lateral ischemia as seen on EKG and by relief with nitroglycerin on presentation. Their initial read of the statin TTE, there appears to be segmental wall motion abnormalities. FormalTTE read pending. Troponin slowly trending upwards though remain mildly elevated. Plan would be forcardiac catheterization if his renal function will allow. Discussed with Dr. Eagle, transplant medicine, who prefers that hydration given prior to this dye load. We will attempt to coordinate timing with cardiology tomorrow, but does not appear to be planned for the morning. Continue beta-blockade for heart rate control, aspirin, clopidogrel, heparin drip, and start statin. 2. Hypoxemic respiratory failure/Volume overload/HFrEF: Multifactorial volume overload and resultant hypoxemic respiratory failure from IVF administration in setting of HFrEF and atrial fibrillation with rapid ventricular response. Heart rates now well controlled with home medications and hypoxemiaimproved with diuresis overnight. Back to room air and will continue to follow closely.Wean FiO2 tokeep SaO2>94%. 3. Atrial flutter with rapid ventricular response: Heart rate not controlled with home diltiazem and addition of metoprolol. On heparin drip as above. Elevated CHADS2-Vasc of 6. 4. Transplanted kidney/RAY on CKD Stage 3: Follow-up with transplant medicine here. Tacrolimus level acceptable. Appreciate transplant medicine assistance. Creatinine rising this morning but may be due to NSTEMI and atrial fibrillation with rapid ventricular response. Follow in the morning as no evidence of volume overload currently. Renally adjust medications and avoid further nephrotoxins. Strict I/Os and daily standing weights. 5. DM2: Blood sugars well controlled on current regimen. We will continue to follow. 6. DVT Prophylaxis: heparin gtt CODE STATUS: FULL RESOLVED PROBLEMS: NONE Disposition: Unclear SUBJECTIVE: Feeling well this morning. No chest pain. No SOB or difficulty breathing since furosemide dosing. OBJECTIVE: Last value Range last 24 hrs Temp: 36.8 ??C (98.2 ??F) Temp: [36.6 ??C (97.9 ??F)-37 ??C (98.6 ??F)] Heart Rate: 85 Heart Rate: [51-85] BP: (!) 159/92 BP: (111-159)/(65-97) Resp: 18 Resp: [18-24] SpO2: 95 % SpO2: [85 %-95 %] O2 Flow Rate (L/min): 6 L/min I/O last 1 completed shift: In: - Out: 700 [Urine:700] Intake/Output Summary (Last 24 hours) at 02/01/20191922 Last data filed at 02/01/2019 1400 Gross per 24 hour Intake 500 ml Output 1075 ml Net -575 ml Patient Vitals for the past 168 hrs: Weight 02/01/19 0624 107.1 kg (236 lb 3.2 oz) 01/31/19 1110 106.1 kg (234 lb) Body mass index is 32.94 kg/m??. GEN: awake, alert, NAD HEENT: PERRLA, EOMI, MMM, trachea midline, no JVD CHEST: CTA B/L, no W/R/R, no accessory muscle use HEART: irregular rate and rhythm, S1S2, no M/R/G, trace B/L LE edema ABD/PEL: soft, NT, ND, +BS EXT: no clubbing or cyanosis, no erythema PSYCH/NEURO: appropriate affect and cognition, OX3 LABS/IMAGING: Recent Labs 02/01/19 1504 02/01/19 0310 01/31/19 1620 01/31/19 0946 NA 138 140 139 < > 136 K 4.1 3.3* 3.9 < > 4.5 CL 100 108* 100 < > 96* CO2 25 21* 27 < > 26 BUN 33* 29* 28* < > 30* CREATININE 2.05* 1.66* 2.12* < > 1.99* CALCIUM 8.9 7.1* 9.6 < > 10.3 MAGNESIUM 0.68* -- -- -- 0.76 PHOS -- -- -- -- 3.7 < > = values in this interval not displayed. Recent Labs 02/01/19 0740 02/01/19 0310 01/31/19 2036 WBC 9.6* 10.5* 12.1* HGB 14.0 13.5* 15.2 HCT 41.2 39.7* 44.7 MCV 91.6 91.7 92.4 PLATELET 206 215 238 No results for input(s): PT, INR, PTT in the last 72 hours. CONSULTANTS: IP CONSULT TO CARDIOLOGY MEDICATIONS: SCHEDULED ??? aspirin 81 mg Oral Daily ??? atorvastatin 40 mg Oral QPM ??? ascorbic acid 500 mg Oral TID ??? calciTRIol 0.5 mcg Oral Every Other Day ??? clopidogrel 75 mg Oral Daily ??? glipiZIDE 5 mg Oral Daily with breakfast ??? levothyroxine 137 mcg Oral Daily ??? mycophenolate 250 mg Oral BID ??? potassium phosphate (monobasic) 1,000 mg Oral BID ??? tacrolimus 2 mg Oral QAM And ??? tacrolimus 1 mg Oral Nightly ??? tamsulosin 0.4 mg Oral Daily ??? sodium chloride 0.9 % (flush) 5 mL Intravenous BID ??? insulin lispro 1-4 Units Subcutaneous TID AC ??? pantoprazole 40 mg Oral Daily ??? metoprolol 12.5 mg Oral Q6H JUAN R PRN acetaminophen 1,000 mg Q8H PRN polyethylene glycol 17 g Daily PRN sodium chloride 0.9 % (flush) 5-20 mL Q1 Min PRN lidocaine 0.3 mL Once PRN Glucose 40% oral gel 15-30 g Q30 Min PRN Or dextrose 12.5-25 g Q1H PRN Or glucagon (human recombinant) 1 mg Q1H PRN heparin (porcine) 0-4,000 Units BOLUS HEPARIN PP prochlorperazine 5 mg Q4H PRN nitroGLYcerin 0.4 mg Q5 Min PRN DIET: Carb Control diet 60/60/75 CHO counting level 2 IPI Certification I certify that I am a D-H credentialed attending provider with admitting privileges and that the patient meets or has met medical necessity to require an inpatient IPI level of care meeting a minimumof two midnights or is on the [facility] inpatient only procedure list (status C) due to: monitoring of fluid status given an inability to regulate fluid balance and the need for administration or restriction of fluids, acute kidney injury necessitating close monitoring of fluid balance such as intravenous fluids and/or titration of medication to achieve optimal effect and minimize the chance of immediate or severe side effects and NSTEMI Alessandro Limon DO [facility] Hospitalist 02/01/2019 7:23 PM * Yeimi Martinez, [facility] - 02/01/2019 10:26 AM EDT Respiratory Therapy Heated Humidified High Flow INDICATIONS: High O2 requirement HIGH FLOW SETTINGS: Interface: High flow mask Flow: 65 L/min FiO2: 50 % VITAL SIGNS: HR: 66(tele) RR: 18 SpO2: (!) 89 % ASSESSMENT: Pt received on the above HHFNC settings. Pt transitioned to NC 6 lpm mid morning by MD team. PLAN: Continue with current respiratory support. YEIMI MARTINEZ RCP * Sharon Boo RCP - 02/01/2019 4:54 AM EDT Respiratory Therapy Heated Humidified High Flow INDICATIONS: High O2 requirement HIGH FLOW SETTINGS: Interface: Nasal cannula Flow: 65 L/min FiO2: 50 % VITAL SIGNS: HR: 66 RR: 24 SpO2: 93 %(awake, sitting up on edge of bed) ASSESSMENT: Called by Life Safety RN to evaluate need for CPAP vs High Flow for new increased O2 needs. Originally tried on HFNC titrating settings up to 65L 70%, minimal change in SpO2 with increased FiO2. Patient noted to be breathing through his mouth, switched to High Flow mask. Maintained SpO2in low 90s while on mask 65L 50%. CORROSION ENGINEER aware and had IVF stopped, ordered ABG - 7.46/33/122/22.9 on60% FO2Hb 97.4 with SpO2 still reading low 90s. Weaned FiO2 back down to 45%. Plan to start diuresis pending AM labs. PLAN: Wean settings as tolerated. Sharon Boo RCP * Polina Glaser, RN - 01/31/2019 10:24 PM EDT Pt desating while asleep on RA. NC applied, unable to maintain sats on 6L NC. CORROSION ENGINEER Giselle notified.Came to bedside to assess. Pt placed on venti mask. Pt up to 50% 12L venti mask to maintain sats >90%. RT notified. Stock Cutter updated. No further labs ordered at this time. Plan to maintain on venti mask, possible place on CPAP if further desat, and Routine chest xray. * Ethel Darling RN - 01/31/2019 9:38 PM EDT Patient arrived to room 339 at 1845. VSS, afebrile. Patient immediately c/o nausea and vomiting- team notified. Patient placed on tele per orders. Patient oriented to room. Turned care over to Mikey Sanford RN. documented in this encounter H&P Notes * Anabel Duncan MD - 01/31/2019 3:36 PM EDT Inpatient Hospital Medicine - Admission Note Problem List: Active Hospital Problems Diagnosis ??? Atrial fibrillation with RVR - had flutter initially, then fib Resolved Hospital Problems No resolved problems to display. Active Non-Hospital Problems Diagnosis ??? Hydronephrosis ??? S/P R TKA 11/25/17 Dr. Dale ??? Obesity (BMI 30.0-34.9) ??? Debility ??? Pain of right lower extremity ??? Vitamin D deficiency ??? 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 CAH (chronic active hepatitis) ??? Immunosuppression ??? Type 2 diabetes mellitus with complication, without long-term current use of insulin ??? Weight increase ??? Sepsis ??? Kidney replaced by transplant ??? Encounter for long-term (current) use of other medications ??? Aftercare following organ transplant ??? Dehydration ??? Ureteral stricture ??? Bacteremia due to coagulase-negative Staphylococcus ??? Fever ??? UTI (urinary tract infection) ??? RAY (acute kidney injury) ??? Kidney transplant infection ??? HCV (hepatitis C virus) ??? Hepatitis C virus infection ??? Essential hypertension ??? CGN (chronic glomerulonephritis) ??? DM type 2 (diabetes mellitus, type 2) ??? Hypertension ??? DJD (degenerative joint disease) ??? Hematuria ID: 68 y.o. Male presents to [facility] with lightheadedness and decreased urine output History of Present Illness: HPI 68??y.o. 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 Found to be in aflutter with 2:1 with rates in 150's. He did not feel his heartgoing rapidly. Denied chest pain. Quite active - walks stairs etc. Found to have RAY. Had been drinking 3 liters fluid a day. Did not have any diarrhea. Had poor appetite. Nausea and some vomiting inED. Received nitroglycerin and heartburn went from 10 to 0. Currently remains in sinus Per him there was a question of atrial fibrillation when had a stroke (). Of note MRI had showed small lacunar --had DAVEY and month long holter without evidence of afib. Of note he has not had any symptoms of palpitations. No syncopal events. He has never had a heart catheterization. Neg stresstest in 2014 Note has had hard to control GERD for 50 years. Stopped taking PPI about 3 weeks ago. Of note does eat rolaids like candy. Current heartburn feels like his baseline. Received 10 mg IV diltiazem with no change, then received 25 mg IV diltiazem --I was in room --looked like he went into afib then converted to sinus shortly after. Didn't feel like he was dehydrated, At least 3 liters of fluid daily. No diarrhea or any other source of fluid loss. Denies any fevers or chills. [place] bloated in abdomen since yesterday. No pain witheating. Vomiting in ED -- given nitroglycerin and his heartburn went from 10 to 0 Only made about 150cc total urine in 24 hours prior to coming in Already made 250cc in ED He had renal transplant US which looked ok Review of Systems: Review of Systems Constitutional: Negative for chills and fever. Decreased appetite last day, taking in po fluid HENT: Negative for congestion and trouble swallowing. Eyes: Negative for visual disturbance. Respiratory: Negative for choking, chest tightness and shortness of breath. Cardiovascular: Heart burn, very frequently, eats rolaids on daily basis Gastrointestinal: Negative for constipation and diarrhea. Feels distended, had BM this am + nausea/vomiting while in ED No blood in stool Endocrine: Negative for polyuria. Genitourinary: Positive for decreased urine volume. Negative for difficulty urinating and dysuria. Musculoskeletal: Negative for back pain. Skin: Negative for rash. Allergic/Immunologic: Positive for immunocompromised state. Neurological: Negative for weakness. Psychiatric/Behavioral: Negative for agitation. He felt a little wifty when he went to transplant clinic. Normal mentation on my exam Past Medical and Surgical History: Past Medical History: Diagnosis Date ??? [...] EXTREMITY performed by Que Amaro MD at [facility] ??? PRO CYSTOURETHROSCOPY, URETER CATHETER Left 06/17/2018 CYSTO, RETROGRADE, URETEROPYELOGRAPHY (WRVU 2.37) performed by Edinson Grider III, [facility] ??? PRO REIMPLANT URETER, SINGLE URETER [...] 09/16/2015 @PREPARATION CADAVERIC RENAL ALLOGRAFT performed by Larry Larkin MD at [facility] OR ??? PRO TRANSPLANTATION OF KIDNEY N/A 09/16/2015 @KIDNEY TRANSPLANT, WITHOUT RECIPIENT NEPHRECTOMY performed by Larry Larkin MD at [facility] OR ??? US RENAL TRANSPLANT LEFT Left 01/31/2019 US Renal Transplant Left 01/31/2019 [facility] RAD ULTRASOUND Prior To Admission Medications: Medications Prior to Admission Medication Sig Dispense Refill Last Dose ??? tamsulosin (FLOMAX) 0.4 mg Capsule Take 0.4 mg by mouth daily. 01/31/2019 at Unknown time ??? glipiZIDE (GLUCOTROL XL) 5 mg Tablet Extended Rel 24 hr Take 1 tablet by mouth daily. 01/31/2019at Unknown time ??? acetaminophen (TYLENOL) 500 mg Tablet Take 1,000 mg by mouth every 8 hours as needed for Pain. 01/31/2019 at Unknown time ??? mycophenolate (CELLCEPT) 250 mg Capsule Take 1 capsule by mouth 2 times daily. Kidney Transplant ICD Code Z94.0 60 capsule 8 01/31/2019 at Unknown time ??? tacrolimus (PROGRAF) 1 mg Capsule TAKE TWO CAPSULES BY MOUTH EVERY MORNING, TAKE ONE CAPSULE BYMOUTH NIGHTLY . 90 capsule 8 01/31/2019 at Unknown time ??? potassium phosphate, monobasic, (K-PHOS ORIGINAL) 500 mg Tablet, Soluble Take 2 tablets by mouth 2 times daily. DISSOLVE IN WATER PRIOR TO ADMINISTRATION 540 tablet 3 01/31/2019 at Unknown time ??? Magnesium Gluconate 27 mg magnesium (500 mg) Tablet TAKE TWO TABLETS BY MOUTH TWICE A DAY 360 tablet 3 01/31/2019 at Unknown time ??? calciTRIol (ROCALTROL) 0.5 mcg Capsule TAKE ONE CAPSULE BY MOUTH EVERY DAY 90 capsule 3 01/31/2019 at Unknown time ??? polyethylene glycol (MIRALAX) 17 gram Powder in Packet Take 17 g by mouth 2 times daily. Take to maintain normal bowel pattern while taking narcotic pain medication. 01/31/2019 at Unknown time ??? levothyroxine (SYNTHROID) 137 mcg Tablet Take 137 mcg by mouth daily. 01/31/2019 at Unknown time ??? ascorbic acid, vitamin C, (VITAMIN C) 500 mg Tablet Take 1 tablet by mouth 3 times daily. 30 tablet 3 01/31/2019 at Unknown time ??? clopidogrel (PLAVIX) 75 mg Tablet Take 75 mg by mouth daily. 01/31/2019 at Unknown time Allergies: No Known Allergies Family History: Family History Problem Relation Age of Onset ??? Chronic Obstructive Pulmonary Disease Mother ??? Arrhythmia Mother ??? Heart Disease Father Social History and Habits: Social History Socioeconomic History ??? Marital status: [...] file Gets together: Not on file Attends [employer] service: Not on file Active member of [...] Social History Narrative ??? Not on file Immunizations: Immunization History Administered Date(s) Administered ??? Hepatitis B Vaccine, unspecified formulation 04/16/2015, 05/14/2015, 06/20/2015 ??? Influenza PF, Split 06/04/2012, 05/26/2013, 04/07/2015, 08/03/2017 ??? Influenza PF, Split (High Dose) 04/23/2016 ??? Influenza Vaccine PF, Quadrivalent (6-35 Mos) 04/04/2015 ??? Pneumococcal Polyvalent 23 06/20/2014, 04/11/2015 ??? Td, adult 07/06/2000, 05/20/2011 ??? Zoster Vaccine, Live 08/30/2015 Physical Exam: Last Set of Vitals and range of vitals over past 24 hours: Last value Range last 24 hrs Temperature Temp: 36.5 ??C (97.7 ??F) Temp: [36.5 ??C (97.7 ??F)] Heart Rate Heart Rate: 83 Heart Rate: [70-148] Blood Pressure BP: (!) 145/113 BP: (96-156)/(68-113) Respiratory Rate Resp: 24 Resp: [16-35] SpO2 SpO2: 93 % SpO2: [90 %-98 %] Body mass index is 32.64 kg/m??. Physical Exam Constitutional: He is oriented to person, place, and time. He appears well- developed and well-nourished. No distress. HENT: Head: Atraumatic. Eyes: EOM are normal. No scleral icterus. Neck: Normal range of motion. Neck supple. Cardiovascular: Normal rate and regular rhythm. No murmur heard. Pulmonary/Chest: Effort normal and breath sounds normal. No respiratory distress. Abdominal: Soft. Gaseous distension, no peritoneal signs Musculoskeletal: Normal range of motion. He exhibits no edema. Neurological: He is alert and oriented to person, place, and time. No cranial nerve deficit. Strength full x 4 extremities Skin: Skin is warm and dry. Psychiatric: He has a normal mood and affect. Laboratory (Last 24 Hours): Recent Results (from the past 24 hour(s)) Tacrolimus level Result Value Ref Range Tacrolimus Lvl 6.7 ng/mL Comprehensive metabolic panel (non-fasting) Result Value Ref Range Glucose Lvl 175 65 - 199 mg/dL BUN 30 (H) 10 - 20 mg/dL Creatinine 1.99 (H) 0.80 - 1.50 mg/dL Sodium 136 135 - 145 mmol/L Potassium 4.5 3.5 - 5.0 mmol/L Chloride 96 (L) 98 - 107 mmol/L CO2 26 22 - 31 mmol/L Anion Gap 14 5 - 15 mmol/L Calcium 10.3 8.5 - 10.5 mg/dL Total Protein 7.3 6.1 - 8.0 gm/dL Albumin 4.3 3.2 - 5.2 gm/dL AST 19 0 - 39 unit/L ALT 22 0 - 55 unit/L Alk Phos 68 40 - 130 unit/L Total Bilirubin 2.8 (H) 0.2 - 1.3 mg/dL eGFR 33 (L) >=60 mL/min/1.73 m?? eGFR 38 (L) >=60 mL/min/1.73 m?? Uric acid Result Value Ref Range Uric Acid 11.1 (H) 3.5 - 8.5 mg/dL Phosphorus Result Value Ref Range Phosphorus 3.7 2.5 - 4.5 mg/dL Magnesium Result Value Ref Range Magnesium 0.76 0.69 - 1.07 mmol/L Cholesterol, total Result Value Ref Range Chol, Total 113 mg/dL Lipid Interpretation See Note Hemogram Result Value Ref Range WBC 11.0 (H) 4.0 - 9.5 x10(3)/mcL RBC 5.39 4.58 - 5.54 x10(6)/mcL Hemoglobin 17.0 (H) 13.7 - 16.5 gm/dL Hematocrit 49.5 (H) 40.5 - 48.5 % MCV 91.8 82.9 - 93.1 fL MCH 31.5 27.5 - 32.1 pg MCHC 34.3 32.0 - 35.7 gm/dL Platelets 270 145 - 357 x10(3)/mcL RDWSD 45.4 (H) 36.0 - 45.0 fL RDWCV 13.8 11.4 - 13.8 % MPV 10.0 7.6 - 12.9 fL nRBC % Auto 0.0 % nRBC Abs Auto 0.000 0.000 - 0.000 x10(3)/mcL Differential, Automated Result Value Ref Range Neutrophils % 76.5 % Neutr Abs (ANC) 8.42 (H) 1.70 - 6.10 x10(3)/mcL Lymphocytes % 14.9 % Lymphocytes Abs 1.6 0.9 - 3.2 x10(3)/mcL Monocytes % 7.1 % Monocyte Abs 0.8 0.3 - 0.9 x10(3)/mcL Eosinophils % 0.7 % Eosinophils Abs 0.1 0.0 - 0.4 x10(3)/mcL Basophils % 0.5 % Basophils Abs 0.1 0.0 - 0.1 x10(3)/mcL Immature Gran % 0.30 % Ayesha Gran Abs 0.03 0.00 - 0.04 x10(3)/mcL Basic Metabolic Panel (non-fasting) Result Value Ref Range Glucose Lvl 151 65 - 199 mg/dL BUN 29 (H) 10 - 20 mg/dL Creatinine 1.82 (H) 0.80 - 1.50 mg/dL Sodium 136 135 - 145 mmol/L Potassium 4.1 3.5 - 5.0 mmol/L Chloride 96 (L) 98 - 107 mmol/L CO2 26 22 - 31 mmol/L Anion Gap 14 5 - 15 mmol/L Calcium 10.1 8.5 - 10.5 mg/dL eGFR 37 (L) >=60 mL/min/1.73 m?? eGFR 43 (L) >=60 mL/min/1.73 m?? Urinalysis with reflex Culture Result Value Ref Range Glucose UA Negative Negative mg/dL Protein UA 100 (A) Negative mg/dL Bilirubin UA Negative Negative mg/dL Urobilinogen UA Normal Normal mg/dL pH UA 5.0 5.0 - 8.0 Blood UA Negative Negative mg/dL Ketones UA Negative Negative mg/dL Nitrite UA Negative Negative Leukocytes UA Negative Negative mcL Appearance UA Clear Clear Spec Dazey UA 1.023 1.002 - 1.030 Color UA Yellow Yellow Culture Reflexed No Troponin Result Value Ref Range Troponin-T 0.03 (H) 0.00 - 0.00 ng/mL Electrolytes, urine, random Result Value Ref Range U Sodium <20 mmol/L U Potassium 39 mmol/L U Chloride <20 mmol/L Hemogram Result Value Ref Range WBC 11.7 (H) 4.0 - 9.5 x10(3)/mcL RBC 5.41 4.58 - 5.54 x10(6)/mcL Hemoglobin 17.0 (H) 13.7 - 16.5 gm/dL Hematocrit 49.8 (H) 40.5 - 48.5 % MCV 92.1 82.9 - 93.1 fL MCH 31.4 27.5 - 32.1 pg MCHC 34.1 32.0 - 35.7 gm/dL Platelets 295 145 - 357 x10(3)/mcL RDWSD 46.0 (H) 36.0 - 45.0 fL RDWCV 13.9 (H) 11.4 - 13.8 % MPV 9.9 7.6 - 12.9 fL nRBC % Auto 0.0 % nRBC Abs Auto 0.000 0.000 - 0.000 x10(3)/mcL Differential, Automated Result Value Ref Range Neutrophils % 74.9 % Neutr Abs (ANC) 8.74 (H) 1.70 - 6.10 x10(3)/mcL Lymphocytes % 15.8 % Lymphocytes Abs 1.8 0.9 - 3.2 x10(3)/mcL Monocytes % 7.6 % Monocyte Abs 0.9 0.3 - 0.9 x10(3)/mcL Eosinophils % 1.0 % Eosinophils Abs 0.1 0.0 - 0.4 x10(3)/mcL Basophils % 0.4 % Basophils Abs 0.0 0.0 - 0.1 x10(3)/mcL Immature Gran % 0.30 % Ayesha Gran Abs 0.04 0.00 - 0.04 x10(3)/mcL Blue Tube HOLD Result Value Ref Range Blue Hold Sample in lab. Gold Tube HOLD Result Value Ref Range Gold Hold Sample in lab. Urinalysis Microscopic Exam Result Value Ref Range RBC UA 2 0 - 3 /HPF WBC UA 1 0 - 3 /HPF Troponin Result Value Ref Range Troponin-T 0.04 (H) 0.00 - 0.00 ng/mL Basic Metabolic Panel (non-fasting) Result Value Ref Range Glucose Lvl 131 65 - 199 mg/dL BUN 28 (H) 10 - 20 mg/dL Creatinine 2.12 (H) 0.80 - 1.50 mg/dL Sodium 139 135 - 145 mmol/L Potassium 3.9 3.5 - 5.0 mmol/L Chloride 100 98 - 107 mmol/L CO2 27 22 - 31 mmol/L Anion Gap 12 5 - 15 mmol/L Calcium 9.6 8.5 - 10.5 mg/dL eGFR 31 (L) >=60 mL/min/1.73 m?? eGFR 35 (L) >=60 mL/min/1.73 m?? Lavender Tube HOLD Result Value Ref Range Lavender Hold Sample in lab. Radiology: Renal transplant ultrasound IMPRESSION 1. Left lower quadrant renal transplant shows normal corticomedullary differentiation. No collecting system dilatation or peritransplant collection identified. 2. Normal intrarenal arcuate artery resistive indices. 3. Interrogated main renal artery and vein are patent. Other Studies: EKG - aflutter 2:[address] and t wave abn EKG after diltiazem t wave inversions v3 -v6, flat t's lat. Different then previous EKG when 0 pain: Bigeminy, still with ST abn. qtc 490 Assessment: 68??y.o. 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 Found to be in aflutter with 2:1 with rates in 150's. He did not feel his heartgoing rapidly. Denied chest pain. Quite active - walks stairs etc. Found to have RAY. Had been drinking 3 liters fluid a day. Did not have any diarrhea. Had poor appetite. Nausea and some vomiting inED. Received nitroglycerin and heartburn went from 10 to 0. Currently remains in sinus Per him there was a question of atrial fibrillation when had a stroke (). Of note MRI had showed small lacunar --had DAVEY and month long holter without evidence of afib. Of note he has not had any symptoms of palpitations. No syncopal events. He has never had a heart catheterization. Neg stresstest in 2014 Note has had hard to control GERD for 50 years. Stopped taking PPI about 3 weeks ago. Of note does eat rolaids like candy Patient updated bedside multiple times while in ED Plan: ?? Admit to Hospital Medicine -- Inpatient status ?? Aflutter/afib: Initially looked like 2:1 flutter, after diltiazem was in atrial fibrillation then converted to sinus. Had severe heartburn -- been eating rolaids like candy. Had heartburn for 55 years and this felt no different. However did develop nausea and vomiting. EKG in sinus shows lat t wave inversions and st depression/twav abnormalities in v3-v6. Repeat EKG after nitroglycerin still showed some abnormalities. He is quite active ?? Concern for ACS: Has heartburn for 55 years,, this felt no different but had nausea and vomiting. New afib/flutter. EKG changes once back in sinus. Given nitroglycerin and heartburn went from 10 to 0. Given aflutter/afib with elevated CHAD2 had planned anticoag. Given concern for ACS vs NSTEMI Type 2 will start heparin drip as well. Serial enzymes. Start bblocker. If goes back into RVR can adddiltiazem drip but bblocker better for ischemia and does not interfere with his immunosuppression. Serial enzymes, echo tomorrow, nuc stress. Cardiology consult appreciated. Npo after midnight ?? GERD: PPI, prn tums ?? Mild elevated bili with otherwise normal LFTS. Monitor, repeat in am. History does not suggest gallbladder path currently ?? RAY: ? Whether could be related to perfusion when in rapid rate, fluids, whaley placed per transplant. Note does have elevated uric acid. May need to consider allopurinol. Renal transplant duplex looked ok. ?? Physical Therapy referral ?? DVT Prophylaxis - therapeutic anticoag with heparin gtt ?? If currently a smoker - advised about smoking cessation and will provide smoking cessation material and support. ?? Pneumovax and Influenza Immunizations given as needed. ?? Discussed Advanced Directives and Code Status. The patient wishesto be full code ?? [id number] pager until 8 am, then see care team A copy of this document will be sent to the patient's Primary Care Physician and/or Referring Physician. ANABEL DUNCAN MD 01/31/2019 documented in this encounter ED Notes * Kameron English RN - 01/31/2019 1:12 PM EDT Pt continues to be tachycardic after bolus. ED resident and attending aware. * Rocky Wong MD - 01/31/2019 12:28 PM EDT Ethel Bolden is an 68 y.o. male who presents to the ED with: Chief Complaint Patient presents with ??? Dehydration ??? Dizziness I saw this patient 01/31/2019 at ~ 12:28 PM HPI Ethel Bolden is a 68 y.o. male with a PMH significant for DMII, HTN, kidney transplant in 2016, who presents to the Emergency Department with urinary retention and feeling loopy. He says that over the last several days, he hasn't been able to urinate very much. He states that he has urinatedmaybe 100 mL once or twice per day. This is abnormal for him. He also feels loopy. When pressed, it sounds like he has some lightheadedness and shortness of breath. He denies chest pain, nausea. He denies change in bowel habits. Due to his symptoms, he had labs taken at transplant clinic this morning and was told to present to the ED. He denies fevers/chills. He also denies current chest painor discomfort. Review of Systems: A 10 point review of systems was performed and was negative except as noted in HPI Patient Vitals for the past 8 hrs: BP Temp Temp src Pulse Resp SpO2 Height Weight 01/31/19 1200 123/78 -- -- (!) 147 27 (!) 81 % -- -- 01/31/19 1139 -- -- -- (!) 148 18 93 % -- -- 01/31/19 1138 (!) 141/95 -- -- (!) 148 22 -- -- -- 01/31/19 1110 (!) 156/102 36.5 ??C (97.7 ??F) Oral (!) 146 16 98 % 180.3 cm (5' 11) 106.1 kg (234 lb) I have reviewed the vital signs, which demonstrates tachycardia, tachypnea Physical Exam: Physical Exam Constitutional: He is oriented to person, place, and time. He appears well- developed. No distress. HENT: Head: Normocephalic and atraumatic. Eyes: Pupils are equal, round, and reactive to light. EOM are normal. Neck: Normal range of motion. Cardiovascular: Exam reveals no gallop and no friction rub. No murmur heard. Tachycardic, regular rate. Normal distal pulses. Pulmonary/Chest: Effort normal and breath sounds normal. No respiratory distress. Abdominal: Distended abdomen. Tender to palpation diffusely. No signs of active bleeding or infection Musculoskeletal: Normal range of motion. Neurological: He is alert and oriented to person, place, and time. Skin: Skin is warm. Capillary refill takes less than 2 seconds. Psychiatric: He has a normal mood and affect. ED Course: - Patient was evaluated and discussed with Dr. Yeung - Medications, allergies, past medical history, surgical history, family history, and social history were reviewed ED Course: - Medications and fluid administered: Medications sodium chloride 0.9% infusion (120 mL/hr Intravenous New Bag 01/31/19 1334) pantoprazole (PROTONIX) tablet 40 mg (40 mg Oral Given 01/31/19 171) metoprolol tartrate (LOPRESSOR) tablet 12.5 mg (12.5 mg Oral Given 01/31/19 171) lactated Ringers 1,000 mL IV bolus ( Intravenous Stopped 01/31/19 1306) dilTIAZem (CARDIZEM) injection 5 mg/mL (10 mg Intravenous Given 01/31/19 1514) potassium phosphate (monobasic) (K-PHOS) tablet 1,000 mg (1,000 mg Oral Given 01/31/19 1542) dilTIAZem (CARDIZEM) injection 5 mg/mL (25 mg Intravenous Given 01/31/19 1544) aspirin tablet 325 mg (325 mg Oral Given 01/31/19 171) calcium carbonate (Tums) chewable tablet 1,000 mg (1,000 mg Oral Given 01/31/191709) - I have reviewed lab results, which are significant for: Labs Reviewed BASIC METABOLIC PANEL (NON-FASTING) - Abnormal; Notable for the following components: Result Value BUN 29 (*) Creatinine 1.82 (*) Chloride 96 (*) eGFR 37 (*) eGFR 43 (*) All other components within normal limits URINALYSIS WITH REFLEX CULTURE - Abnormal; Notable for the following components: Protein UA 100 (*) All other components within normal limits TROPONIN - Abnormal; Notable for the following components: Troponin-T 0.03 (*) All other components within normal limits HEMOGRAM - Abnormal; Notable for the following components: WBC 11.7 (*) Hemoglobin 17.0 (*) Hematocrit 49.8 (*) RDWSD 46.0 (*) RDWCV 13.9 (*) All other components within normal limits DIFFERENTIAL, AUTOMATED - Abnormal; Notable for the following components: Neutr Abs (ANC) 8.74 (*) All other components within normal limits TROPONIN - Abnormal; Notable for the following components: Troponin-T 0.04 (*) All other components within normal limits BASIC METABOLIC PANEL (NON-FASTING) - Abnormal; Notable for the following components: BUN 28 (*) Creatinine 2.12 (*) eGFR 31 (*) eGFR 35 (*) All other components within normal limits CBC (WITH DIFF) REQUEST FOR LACTATE WHOLE BLOOD DRAW ELECTROLYTES, URINE, RANDOM BLUE TUBE HOLD GOLD TUBE HOLD URINALYSIS MICROSCOPIC EXAM LAVENDER TUBE HOLD - I have reviewed imaging, which is significant for: US Renal Transplant Left Final Result 1. Left lower quadrant renal transplant shows normal corticomedullary differentiation. No collecting system dilatation or peritransplant collection identified. 2. Normal intrarenal arcuate artery resistive indices. 3. Interrogated main renal artery and vein are patent. Thank you for letting us participate in the care of this patient. For questions regarding this report, please contact the number below. Jolly Payne, Staff Physician Electronically Signed Final Report 01/31/2019 02:47 pm XR Chest PA & Lateral (Generic) Final Result Small bilateral pleural effusions. No overt pulmonary edema. Thank you for letting us participate in the care of this patient. For questions regarding this report, please contact the number below. - I have reviewed EKG results, which is significant for: Atrial flutter morphology Assessment and Plan: MDM: 68 y.o. male who presents for decreased urine output. On arrival, it was noted that he was in atrial flutter. Initial exam was significant for distended abdomen, non peritoneal. Given his history of kidney transplant, there were concerns for a complication. I ordered CBC, BMP, troponin, UA, urine electrolytes, chest x-ray, EKG. I also started a bolus of LR. I then consulted transplant surgery, who recommended renal transplant ultrasound, NaCl maintenance fluids, whaley catheter. I also started diltiazem 10 mg IV to see if it affected the heart rate. He did not have any change from the initial diltiazem dose, so I administered 25 mg IV. This brought him back to sinus rhythm. Initial troponin came back positive so we administered 324 mg PO aspirin for concerns of ACS. Once he converted to sinus rhythm, I consulted hospital medicine. They agreed to admit the patient.They also plan on consulting cardiology for possible ACS once he is admitted. Once patient was in sinus rhythm, I continued to monitor on him and he maintained normal vitals and remained comfortable.He denied chest pain, nausea, shortness of breath. This patient has an RAY, bump in troponin, likely 2/2 Type II NSTEMI. He is getting appropriate maintenance fluids, received aspirin, and is admitted to medicine. Plan: - Admit to medicine Rocky Wong MD Resident 01/31/19 2249 Associated attestation - Mundo Yeung MD - 02/07/2019 11:51 AM EDT ED ATTENDING ATTESTATION The patient was seen in conjunction with the resident physician. I have independently performed thekey portions of the history and physical exam. I have personally reviewed nursing notes, vital signs, and diagnostic studies including labs, imaging studies and EKGs. I have discussed the details of the case with the resident and agree with the assessment and plan as described in the resident's note, unless stated otherwise in my separate note. 68 YO M s/p renal transplant 2016, HTN and DM presents with malaise and decreased urine output for days. Patient is afebrile, in afib w/ RVR with normal blood pressure and oxygenation. Labs notable for mild leukocytosis and creatinine of 1.8 from baseline (1.1-1.3). Urinalysis without evidence of in fection. CXR is notable for small pleural effusions. EKG w/ afib and troponin is elevated at 0.03. Patient given IV fluids and diltiazem. Care was discussed with transplant team and patient was admitted to hospital medicine pending transplant US and Cardiology consult. documented in this encounter Miscellaneous Notes * Plan of Care - Emmy Purdy RN - 02/04/2019 7:17 PM EDT Problem: Patient Care Overview Goal: Plan of Care Review Outcome: Ongoing (Interventions Implemented as Appropriate) 02/01/19 0303 02/04/19 0900 Plan of Care Review Progress no change -- Coping/Psychosocial Plan Of Care Reviewed With -- patient OUTCOME EVALUATION NOTE: OUTCOME SUMMARY: Patient discontinued from the lasix drip, output good, voiding in urinal all day. One time 20 mg lasix IV given. Patient voiced no complaints of pain or discomfort. Many attempts to titrate patient off of 02, patient continues to intermittently desat to the low 80's. Patient continues on 1.5 L NC oxygen. No complaints of chest pain all shift. PLAN MOVING FORWARD: Discharge when medically ready INDIVIDUALIZED FALL PREVENTION INTERVENTIONS: Call robles, frequent rounding Patient-specific fall risk factors per assessment: [current deficits]: SB Assistance [level of assistance required for transfers and ambulation]: SB Supervision [direct monitoring required during toileting and ADLs]: Purposeful rounding Surveillance [continuous indirect monitoring]: SB Patient-specific fall prevention interventions for sensory deficits provided, if applicable: CPG GOAL OUTCOME EVALUATION: * Med Student Progress Note - Destinee Ochoa - 02/04/2019 5:22 PM EDT Med Student Progress Note ?? ID: Ethel Bolden is a 68 y.o. male with a history of Hep C treated with Harvoni, DM2, HTN, kidney transplant 2016 with ureterol reconstruction who presented with decreased urine output and dizziness. ?? Overnight Events: No acute events Subjective: Mr. Bolden has no complaints this morning. Denies shortness of breath, chest pain, heart burn, or abdominal pain. Vitals: Last value Range last 24 hrs Temperature Temp: 37.2 ??C (98.9 ??F) Temp: [36.9 ??C (98.4 ??F)-37.2 ??C (98.9 ??F)] Heart Rate Heart Rate: 52 Heart Rate: [52-59] Blood Pressure BP: 139/48 BP: (139-152)/(47-52) Respiratory Rate Resp: 20 Resp: [19-21] SpO2 SpO2: (!) 88 % SpO2: [85 %-95 %] Art BP BP (Arterial Line): -- ?? Intake/Output Summary (Last 24 hours) at 02/04/2019 6181 Last data filed at 02/04/2019 1308 Gross per 24 hour Intake -- Output 5930 ml Net -5930 ml ?? PE: General: In no acute distress, sitting up in bed Cardiac: Distant heart sounds, irregular rate and rhythm, no m/r/g Lungs:??Some crackles up to lower lung pulliam b/l Abdomen: + BS, no tenderness to palpation Extremities: Trace edema to knees b/l ?? Pertinent Labs: WBC: 9.8 <-- 8.9 <-- 9.7 <-- 10.5 <-- 12.1 Hgb: 14.1 <-- 12.8 <-- 14.0 <-- 13.5 <-- 15.2 K: 3.8 Cr: 1.56 <-- 1.44 <-- 1.64 <-- 2.0 <-- 1.66 <-- 2.12 <-- 1.82 <-- 1.99 Relevant Imaging and Procedures: Cardiac Catheterization 02/02: LM: mild LAD: mild LCx: mild, OM ostial 90% RCA: mild Stent placed into the ostial OM lesion Total of 35cc of contrast STAT CXR 02/02/19 16:11 No interval change. Mild pulmonary edema EKG 02/01/19 Sinus rhythm with Premature atrial complexes Left axis deviation ST & T wave abnormality, consider anterolateral ischemia Abnormal ECG When compared with ECG of 31-JAN-2019 18:31, (unconfirmed) Atrial bigeminy is no longer present CXR 02/01/19 22:52: Pulmonary vascular congestion and edema likely with trace bilateral effusions. CXR 02/01/19 00:08 Pulmonary vascular congestion and edema with trace bilateral pleural effusions.?? Transthoracic Echocardiogram 02/01/19 1. The left ventricular chamber size is normal. Mild concentric left ventricular hypertrophy is observed. Global left ventricular systolic function is moderately reduced. Ejection fraction is estimated to be 30%. with beat to beat variation. There is diffuse hypokinesis present. Doppler assessment is consistent with elevated left sided filling pressure. 2. Right ventricular chamber size, wall thickness, and systolic function are within normal limits. The estimated pulmonary artery systolic pressure is 48 mmHg. The estimated right atrial pressure is 15 mmHg. 3. The left atrium is severely dilated. 4. There is mild to moderate (1-2+/4+) mitral regurgitation present. 5. There is mild to moderate (1-2+/4+) tricuspid regurgitation present. 6. See remainder of report for additional findings. 7. Compared to the prior study from 2014, there has been a significant decrement in LV function. CXR 01/31/19 12:47 Small bilateral pleural effusions. No overt pulmonary edema. EKG 01/31/19 Atrial flutter with 2:1 A-V conduction Left anterior fascicular block Nonspecific ST and T wave abnormality Abnormal ECG When compared with ECG of 04-NOV-2017 12:43, Significant changes have occurred US Renal Transplant Left 01/31/19 1. Left lower quadrant renal transplant shows normal corticomedullary differentiation. No collecting system dilatation or peritransplant collection identified. 2. Normal intrarenal arcuate artery resistive indices. 3. Interrogated main renal artery and vein are patent. Assessment and Plan: Ethel Bolden is a 68 y.o. male with a history of Hep C treated with Harvoni, DM2, HTN, kidney transplant 2015 with ureterol reconstruction who presented with decreased urineoutput and dizziness, diagnosed with NSTEMI now s/p catheterization with several episodes of acute hypoxia. Doing well with decreased crackles on lung exam and producing ~6L of urine past 24 hours. However, still unable to completely wean off oxygen. Will give another dose of Lasix this evening forfurther diuresis. Also plan for PT/OT assessment to determine if patient a good candidate for cardiac rehab. # Pulm Edema # Hypoxic resp failure - Wean off oxygen as tolerated, want sats >87% - Repeat BMP in AM - Work up for ARIELLA--scored high on [place] Sleep Scale; may benefit from outpatient sleep study/CPAPat night - Lasix 20mg IV this evening # NSTEMI # Atrial flutter with RVR - Continue metoprolol 12.5mg Q6H, titrate to HR in the 50s; hold if HR <50, Systolic BP <90 - Continue eliquis 5mg (Cr <1.5, age <80) - Continue aspirin 81mg - Continue Plavix 75mg QD PO - ANNAMARIE-I/ARB considered for cardio remodeling prevention but held in setting of RAY - Nitroglycerin 0.4mg SL PRN for chest pain - Heart healthy cardiac diet - PT/OT eval with possible referral to cardiac rehab - Ambulate as tolerated # CKD # RAY # Hypokalemia # Hypocalcemia - Kidney function continues to improve, with creatinine down to 1.44. - Continue tacrolimus 2mg AM, 1mg PM - Continue MMF 250mg BID - Continue calcitriol 0.5mcg every other day - Continue vit C 500 mg TID PO - Continue potassium phosphate 1000mg BID - Repleted K with 40mg this AM - Daily weights - Avoid nephrotoxic drugs - Repeat BMP in the AM #DM2 - Glucose adequately controlled - Continue glipizide 5mg QD PO - Continue sliding scale insulin #Hypothyroidism - Continue Levothyroxine 137 mcg QD PO #Urinary Retention - Continue tamsulosin 0.4mg QD PO # Routine GI: Pantoprazole 40mg QD PT/OT eval pending Dispo: Plan to d/c tomorrow if oxygen saturation >88% off oxygen ?? Destinee Leggett M4 Pager: [phone] * Consult Note - Blanca Jacobo RN - 02/04/2019 2:06 PM EDT Ethel Bolden was seen today by Cardiac Rehabilitation for: NSTEMI Activity evaluation - Pt walking around unit independently ( recent new requirement for O2) Educational packet regarding CAD, cardiac risk factors, and managing angina given to the patient. Heart diagram reviewed. Reviewed managing angina /use of sl nitroglycerin. Mediterranean diet guidelines briefly reviewed. Given parameters for home exercise. Participation in an outpatient cardiac rehabilitation program at [facility] was discussed. Patient agrees to a referral to this program. The referral will be sent at discharge and the patient should be contacted by the Program within 1- 2 weeks from discharge. * Plan of Care - Lee Ann Thomas OT - 02/04/2019 1:32 PM EDT Occupational Therapy Evaluation Patient profile: Ethel Bolden is a 68 y.o. male with a history of Hep C treated with Dina, DM2, HTN, kidney transplant 2016 with ureterol reconstruction who presented with decreased urine output and dizziness. Past Medical History: Diagnosis Date ??? Back [...] EXTREMITY performed by Que Amaro MD at [facility] OR ??? PRO CYSTOURETHROSCOPY, URETER CATHETER Left 06/17/2018 CYSTO, RETROGRADE, URETEROPYELOGRAPHY (WRVU 2.37) performed by Edinson Grider III[facility] ??? PRO REIMPLANT URETER, SINGLE URETER [...] 09/16/2015 @PREPARATION CADAVERIC RENAL ALLOGRAFT performed by Larry Larkin MD at [facility] OR ??? PRO TRANSPLANTATION OF KIDNEY N/A 09/16/2015 @KIDNEY TRANSPLANT, WITHOUT RECIPIENT NEPHRECTOMY performed by Larry Larkin MD at [facility] OR ??? US RENAL TRANSPLANT LEFT Left 01/31/2019 US Renal Transplant Left 01/31/2019 [facility] RAD ULTRASOUND Social History: Patient lives with his . Home Setup: 2 story home with 4 [address]; everything is accessible on the main level. Bathroom has a stall shower with grab bars and a built-in seat. 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 Pt is fully independent at baseline. Precautions/Special Considerations: falls Subjective: Can I go home now? Pt anxious for d/c Objective: Seen today for OT evaluation. Cognitive Status/Behavior: ?? Behavior / Mood: alert and cooperative ?? Alert and oriented to: person, place, time and situation ?? Follows commands: multi step and 100% of the time ?? Attention: WFL ?? Safety awareness: WFL Vision & Perception: ?? WNL/WFL ?? corrective lenses for reading Communication: WFL Range of motion, strength, coordination: Hand dominance: right Bilateral UEs are within functional limitations Sensation: intact Activities of Daily Living: Self-feeding: independent Grooming: independent Dressing: SBA to don pants in sitting/standing; 1 vc for safety d/t O2 tubing. Bathing: NA; pt to shower with nursing this afternoon. Functional Mobility: Supine to sit: independent Sit to stand: independent Ambulation: independent x 150' around unit. Independent kitchen mobility. Stand to sit: independent Sit to supine: NA; pt left sitting up in chair for lunch Balance: Sitting balance: independent Standing balance: independent Vitals: At Rest With Activity SpO2 93% RA in supine 96% on RA with amb Heart Rate 43-58 60 Pain: 0/10 Education: patient have been educated on Role of occupational therapy/rehabilitation, Transfers, ADL, Safety, Functional Mobility, Activity pacing/Energy conservation, Recommendations and Discharge planning and verbalizes and demonstrates understanding. Patient status, treatment, and mobility recommendations discussed with nursing. Assessment: Pt has been seen for occupational therapy evaluation. Ethel Bolden presents with the following performance skill deficits and client factors: decreased activity tolerance and deconditioning. These performance deficits have led to activity limitations and participation restrictions in the following areas of occupation: transfers/mobility, home management, work and community mobility. However, despite the deficits listed above pt demonstrates the ability to perform his basic ADLsindependently. Pt's SpO2 remained in the mid 90's on RA while performing ADL/IADL tasks without c/oSOB or fatigue. Anticipate that pt will return home with assistance once medically ready. Do not anticipate further OT needs while hospitalized. Equipment needs at discharge: none Anticipated Discharge Disposition: home Other Recommendations: No other consults recommended at this time Plan: OT: Therapy Frequency: evaluation only Total Evaluation Minutes, Occupational Therapy: 31(evaluation ) 2017 OT Evaluation Code Rationale: ?? Diagnosis & Pertinent Co-Morbidities affecting Plan of Care: see PMHx ?? Occupational Profile & Client History: Brief Expanded Extensive x ?? Assessment of Occupational Performance: 1-3 performance deficits x 3-5 performance deficits 5 + performance deficits ?? Clinical Decision Making: Low Moderate High x Clinical decision making of low complexity using standardized patient assessment instrument and measurable assessment of functional outcome. Pager: [phone] Lee Ann Thomas OT 02/04/2019 Occupational Therapy Rehabilitation Department * Plan of Care - Betzaida Sparks RN - 02/04/2019 2:27 AM EDT Problem: Patient Care Overview Goal: Plan of Care Review Outcome: Ongoing (Interventions Implemented as Appropriate) 02/01/19 0303 02/03/192039 Plan of Care Review Progress no change -- Coping/Psychosocial Plan Of Care Reviewed With -- patient OUTCOME EVALUATION NOTE: OUTCOME SUMMARY: Pt A&O 4x w/ no c/o pain this shift. Lasix gtt maintained @ 10mg/hr. Pt remains on 5L NC satingmid 90's. Pt ambulated around the unit w/ SBA - tolerated well. Pt voiding in urinal independently.BG monitored. Pt remains free from falls, bed in low position. Call robles remains in reach and pt encouraged to make needs known. Will continue to monitor and report any changes. PLAN MOVING FORWARD: Lasix gtt, Monitor/wean O2, Activity as tolerated INDIVIDUALIZED FALL PREVENTION INTERVENTIONS: Patient-specific fall risk factors per assessment: [current deficits]: IV sites, Masimo, O2 Assistance [level of assistance required for transfers and ambulation]: SBA Supervision [direct monitoring required during toileting and ADLs]: Eyes on Surveillance [continuous indirect monitoring]: Environmental Surveillance, Purposeful Rounding, Bedside Report, Bed near unit station. Patient-specific fall prevention interventions for sensory deficits provided, if applicable: [X] Yes CPG GOAL OUTCOME EVALUATION: * Plan of Care - Emmy Purdy RN - 02/03/2019 6:13 PM EDT Problem: Patient Care Overview Goal: Plan of Care Review Outcome: Ongoing (Interventions Implemented as Appropriate) 02/01/19 0303 02/03/19 1500 Plan of Care Review Progress no change -- Coping/Psychosocial Plan Of Care Reviewed With -- patient OUTCOME EVALUATION NOTE: OUTCOME SUMMARY: Patient alert and oriented x 4, pleasant and cooperative. Whaley d/c'd at 1600 patient has voided since whaley was discontinued. Patient continues on heparin drip at 2000u/40 ml/hr. Eliquis PO started.R hand slightly tender but + pulses noted. Patient denies numbness and tingling. PLAN MOVING FORWARD: D/c heparin drip, commence lasix drip INDIVIDUALIZED FALL PREVENTION INTERVENTIONS: call robles, bed alarm Patient-specific fall risk factors per assessment: [current deficits]: generalized weakness Assistance [level of assistance required for transfers and ambulation]: Sb Supervision [direct monitoring required during toileting and ADLs]: Sb Surveillance [continuous indirect monitoring]: Purposeful rounding Patient-specific fall prevention interventions for sensory deficits provided, if applicable: CPG GOAL OUTCOME EVALUATION: * Med Student Progress Note - Destinee Ochoa - 02/03/2019 2:26 PM EDT Med Student Progress Note ?? ID: Ethel Bolden is a 68 y.o. male with a history of Hep C treated with Harvoni, DM2, HTN, kidney transplant 2016 with ureterol reconstruction who presented with decreased urine output and dizziness. ?? Overnight Events: - 1:45: Patient appeared SOB but denied dyspnea; and high flow w/ O2 sat at low 90's and [id number]% non sustained. - 3:00am: Duoneb x1, Pt stated he is feeling much better than in the last 2 nights. O2 sat at 97%. Subjective: Mr. Bolden is doing well this morning. His only complaint is that his breath is dry and funky and would like to brush his teeth. Otherwise has no complaints this morning. Denies shortness of breath, chest pain, heart burn, or abdominal pain. Vitals: Last value Range last 24 hrs Temperature Temp: 36.7 ??C (98.1 ??F) Temp: [36.7 ??C (98.1 ??F)-37 ??C (98.6 ??F)] Heart Rate Heart Rate: 56 Heart Rate: [53-75] Blood Pressure BP: 149/84 BP: (128-175)/(33-131) Respiratory Rate Resp: 20 Resp: [16-40] SpO2 SpO2: 95 % SpO2: [80 %-100 %] Art BP BP (Arterial Line): -- ?? Intake/Output Summary (Last 24 hours) at 02/03/2019 0915 Last data filed at 02/03/2019 0800 Gross per 24 hour Intake 661.67 ml Output 2880 ml Net -2218.33 ml ?? PE: General: In no acute distress, sitting up in bed Cardiac: Distant heart sounds, irregular rate and rhythm, no m/r/g Lungs:??Some crackles up to mid-lung b/l Abdomen: + BS, no tenderness to palpation Extremities: Trace edema to knees b/l ?? Pertinent Labs: WBC: 8.9 <-- 9.7 <-- 10.5 <-- 12.1 Hgb: 12.8 <-- 14.0 <-- 13.5 <-- 15.2 K: 3.4 BUN: 22 Cr: 1.44 <-- 1.64 <-- 2.0 <-- 1.66 <-- 2.12 <-- 1.82 <-- 1.99 Ca: 8.4 Relevant Imaging and Procedures: Cardiac Catheterization 02/02: LM: mild LAD: mild LCx: mild, OM ostial 90% RCA: mild Stent placed into the ostial OM lesion Total of 35cc of contrast STAT CXR 02/02/19 16:11 No interval change. Mild pulmonary edema EKG 02/01/19 Sinus rhythm with Premature atrial complexes Left axis deviation ST & T wave abnormality, consider anterolateral ischemia Abnormal ECG When compared with ECG of 31-JAN-2019 18:31, (unconfirmed) Atrial bigeminy is no longer present CXR 02/01/19 22:52: Pulmonary vascular congestion and edema likely with trace bilateral effusions. CXR 02/01/19 00:08 Pulmonary vascular congestion and edema with trace bilateral pleural effusions.?? Transthoracic Echocardiogram 02/01/19 1. The left ventricular chamber size is normal. Mild concentric left ventricular hypertrophy is observed. Global left ventricular systolic function is moderately reduced. Ejection fraction is estimated to be 30%. with beat to beat variation. There is diffuse hypokinesis present. Doppler assessment is consistent with elevated left sided filling pressure. 2. Right ventricular chamber size, wall thickness, and systolic function are within normal limits. The estimated pulmonary artery systolic pressure is 48 mmHg. The estimated right atrial pressure is 15 mmHg. 3. The left atrium is severely dilated. 4. There is mild to moderate (1-2+/4+) mitral regurgitation present. 5. There is mild to moderate (1-2+/4+) tricuspid regurgitation present. 6. See remainder of report for additional findings. 7. Compared to the prior study from 2014, there has been a significant decrement in LV function. CXR 01/31/19 12:47 Small bilateral pleural effusions. No overt pulmonary edema. EKG 01/31/19 Atrial flutter with 2:1 A-V conduction Left anterior fascicular block Nonspecific ST and T wave abnormality Abnormal ECG When compared with ECG of 04-NOV-2017 12:43, Significant changes have occurred US Renal Transplant Left 01/31/19 1. Left lower quadrant renal transplant shows normal corticomedullary differentiation. No collecting system dilatation or peritransplant collection identified. 2. Normal intrarenal arcuate artery resistive indices. 3. Interrogated main renal artery and vein are patent. Assessment and Plan: Ethel Bolden is a 68 y.o. male with a history of Hep C treated with Harvoni, DM2, HTN, kidney transplant 2016 with ureterol reconstruction who presented with decreased urineoutput and dizziness, diagnosed with NSTEMI now s/p catheterization with several episodes of acute hypoxia. Appears more fluid overloaded today as compared to yesterday. Has been weaned down to 6L NCover the course of the afternoon, but still sounds fluid overloaded on repeat afternoon exam. Will start Lasix drip per Dr. Eagle's recommendation as easier on the kidney. # NSTEMI # Atrial flutter with RVR - Catheterization performed yesterday evening. Showed 90% occlusion of OM1, with successful stent placement. Patient's EF was 30% on TTE, and likely would benefit from cardiac rehab as he needs an EF of >40%. A note in the chart mentions may not be a candidate as frail but appears to move around fairly easily in bed. He states he would like to get up more so will enc ourage sitting in chair and ambulation as tolerated. Also will put in PT/OT order, and then possibly be re-evaluated for cardiac rehab. Given [id number] score and history of aflutter, will begin DAPTwith eliquis for anticoagulation. Will d/c heparin 2 hrs after initiation of eliquis. In one month patient can discontinue the aspirin, per card's recommendations. - Continue metoprolol 12.5mg Q6H, titrate to HR in the 50s; hold if HR <50, Systolic BP <90 - Begin eliquis 5mg (Cr <1.5, age <80) - D/C heparin 2 hours after initiation of Eliquis - Continue aspirin 81mg - Continue Plavix 75mg QD PO - Discontinue telemetry - ANNAMARIE-I/ARB considered for cardio remodeling prevention but held in setting of RAY - Nitroglycerin 0.4mg SL PRN for chest pain - Heart healthy cardiac diet - PT/OT eval - Ambulate as tolerated # Pulm Edema # Hypoxic resp failure - Mr. Bolden continues to have several episodes of hypoxia over the past 24 hours. This is likely due to a fluid overloaded state in the setting of decreased cardiac output from his NSTEMI. Patient put out net -2L today; likely autodiuresing in setting of improved kidney function (Cr 1.44). Oxygen has also been weaned down to 6L NC, but still fluid overloaded; will start Lasix drip. Also, patient has benefited from Duoneb treatments during episodes of acute distress; added in order for Duonebs Q4H PRN. - Wean off oxygen as tolerated, want sats >87% - Repeat BMP and CBC in AM - Work up for ARIELLA--may benefit from CPAP at night - Duoneb Q4H PRN # CKD # RAY # Hypokalemia # Hypocalcemia - Kidney function continues to improve, with creatinine down to 1.44. - Continue tacrolimus 2mg AM, 1mg PM - Continue MMF 250mg BID - Continue calcitriol 0.5mcg every other day - Continue vit C 500 mg TID PO - Continue potassium phosphate 1000mg BID - Repleted K with 40mg this AM - Daily weights - Avoid nephrotoxic drugs - Repeat BMP in the AM #DM2 - Glucose adequately controlled - Continue glipizide 5mg QD PO - Continue sliding scale insulin #Hypothyroidism - Continue Levothyroxine 137 mcg QD PO #Urinary Retention - D/C whaley - Continue tamsulosin 0.4mg QD PO # Routine GI: Pantoprazole 40mg QD PT/OT eval pending Dispo: Plan to d/c tomorrow or Thursday; would like oxygen saturation >88% off oxygen ?? Destinee Duckworth Kenan Tidwell M4 Pager: [phone] * Consult Note - Sara Amador RN - 02/03/2019 11:52 AM EDT Cardiac rehab consult received on this patient with DX: NSTEMI, PCI. Patient is being transferred back to Medicine floor. Per RN, he is not an appropriate candidate forcardiac rehab services. ? PT consult to ambulate this frail patient * Brief Op Note - Bobby Engel MD - 02/02/2019 6:55 PM EDT Preliminary Cardiac Catheterization Procedure Note: Patient Name: Ethel Bolden : [id number] MR#: [id number] Case Date: 02/02/2019 Risk Assessor: Surgeon(s) and Role: * Bobby Engel MD - Primary Preoperative diagnosis: ?CAD Postoperative diagnosis: * ASCVD* Procedure(s) performed: Coronary angio Left heart cath Stent insertion, coronary Access: Right radial A time-out was conducted prior to the start of the procedure to verify the correct patient and procedure, procedure location, and all relevant critical information. Preliminary findings: Right dominant LM: mild LAD: mild LCx: mild, OM ostial 90% RCA: mild Stent placed into the ostial OM lesion Total of 35cc of contrast Please continue plavix and asprin; other meds per cardiology team. The patient tolerated the procedures smoothly and was transferred from the cardiac catheterization lab to the next level of care. Full report to follow. Bobby Engel MD * Med Student Progress Note - Destinee Ochoa - 02/02/2019 5:01 PM EDT Med Student Progress Note ?? ID: Ethel Bolden is a 68 y.o. male with a history of Hep C treated with Harvoni, DM2, HTN, kidney transplant 2016 with ureterol reconstruction who presented with decreased urine output and dizziness. ?? Overnight Events: - 10pm: SOB, wheezing, increased O2 requirement to high flow 50%, atrovent treatment - CXR pulmonary vascular congestion and edema likely with trace bilateral effusions - Weaned to 6L NC by morning Day Events: - Planned catheterization for 3pm; started on renal prophylactic fluids (1/2NS + 1amp bicarb at 75ml/hr) around 11am - Paged around 3pm = desating to 80s while supine, O2 increased to 80 high flow, STAT abg and X-ray; patient not complaining of SOB at this time - pH: 7.46, CO2: 31, Bicarb 22 - Stat CXR Reading: There is no interval change. Again noted are low lung volumes and diffuse vascular blurring likely due to mild pulmonary edema and atelectasis. - IV fluids d/c'd, given 20mg IV Lasix; oxygen turned down to 55 high flow Subjective: Mr. Bolden was eating breakfast this morning when interacting with him. Patient supposed to be NPO prior to procedure; took tray away, had eaten about half. Otherwise, Mr. Bolden saidhe was doing all right. Denies shortness of breath; stated that during incident overnight had felt SOB a few times but nothing too concerning. Otherwise well. No fevers, belly pain. During afternoon event, Mr. Bolden not endorsing increased work of breathing or subjective dyspnea. Vitals: Last value Range last 24 hrs Temperature Temp: 37 ??C (98.6 ??F) Temp: [36.6 ??C (97.9 ??F)-37.6 ??C (99.7 ??F)] Heart Rate Heart Rate: 60 Heart Rate: [54-85] Blood Pressure BP: 152/89 BP: (114-159)/(65-97) Respiratory Rate Resp: 23 Resp: [18-28] SpO2 SpO2: 93 % SpO2: [86 %-95 %] Art BP BP (Arterial Line): -- ?? Intake/Output Summary (Last 24 hours) at 02/02/2019 07 Last data filed at 02/02/2019 0616 Gross per 24 hour Intake -- Output 1525 ml Net -1525 ml ?? PE: General: In no acute distress, sitting up in bed, eating breakfast Cardiac: Distant heart sounds, irregular rate and rhythm, no m/r/g Lungs:??Some crackles in lung bases b/l Abdomen: + BS, no tenderness to palpation Extremities: Trace edema in ankles b/l ?? Pertinent Labs: WBC: 9.7 <-- 10.5 <-- 12.1 Hgb: 14.0 <-- 13.5 <-- 15.2 Na: 138 K: 3.8 BUN: 29 Cr: 1.64 <-- 2.0 <-- 1.66 <-- 2.12 <-- 1.82 <-- 1.99 Ca: 8.9 Arterial blood this afternoon: pH: 7.46, CO2: 31, Bicarb 22 Relevant Imaging: STAT CXR 02/02/19 16:11 No interval change. Mild pulmonary edema CXR 02/01/19 22:52: Pulmonary vascular congestion and edema likely with trace bilateral effusions. ?? CXR 01/31/19 12:47 Small bilateral pleural effusions. No overt pulmonary edema. EKG 01/31/19 Atrial flutter with 2:1 A-V conduction Left anterior fascicular block Nonspecific ST and T wave abnormality Abnormal ECG When compared with ECG of 04-NOV-2017 12:43, Significant changes have occurred US Renal Transplant Left 01/31/19 1. Left lower quadrant renal transplant shows normal corticomedullary differentiation. No collecting system dilatation or peritransplant collection identified. 2. Normal intrarenal arcuate artery resistive indices. 3. Interrogated main renal artery and vein are patent. CXR 02/01/19 00:08 Pulmonary vascular congestion and edema with trace bilateral pleural effusions. EKG 02/01/19 Sinus rhythm with Premature atrial complexes Left axis deviation ST & T wave abnormality, consider anterolateral ischemia Abnormal ECG When compared with ECG of 31-JAN-2019 18:31, (unconfirmed) Atrial bigeminy is no longer present CXR 02/01/19 22:52 There is pulmonary vascular congestion and edema. There are bibasilar opacities slightly more confluent in the left lower lobe. There may be trace bilateral effusions. No pneumothorax. Cardiac silhouette is stable. No acute osseous findings. IMPRESSION Pulmonary vascular congestion and edema likely with trace bilateral effusions. Transthoracic Echocardiogram 02/01/19 1. The left ventricular chamber size is normal. Mild concentric left ventricular hypertrophy is observed. Global left ventricular systolic function is moderately reduced. Ejection fraction is estimated to be 30%. with beat to beat variation. There is diffuse hypokinesis present. Doppler assessment is consistent with elevated left sided filling pressure. 2. Right ventricular chamber size, wall thickness, and systolic function are within normal limits. The estimated pulmonary artery systolic pressure is 48 mmHg. The estimated right atrial pressure is 15 mmHg. 3. The left atrium is severely dilated. 4. There is mild to moderate (1-2+/4+) mitral regurgitation present. 5. There is mild to moderate (1-2+/4+) tricuspid regurgitation present. 6. See remainder of report for additional findings. 7. Compared to the prior study from 2014, there has been a significant decrement in LV function. Assessment and Plan: Ethel Bolden is a 68 y.o. male with a history of Hep C treated with Harvoni, DM2, HTN, kidney transplant 2016 with ureterol reconstruction who presented with decreased urineoutput and dizziness, diagnosed with NSTEMI with several episodes of acute hypoxia. # Pulm Edema # Hypoxic resp failure - Mr. Bolden has head several episodes of hypoxia over the past 24 hours. This is likely due to a fluid overloaded state in the setting of decreased cardiac output from his NSTEMI, as per physical exam and CXR. He was unable to tolerate fluids prior to cath today, so those were discontinued and he was given 20mg of Lasix. Has a history of sleep apnea, and as several of his desaturation events have happened while lying down, that may play a component. Plan to continue monitoring fluid status with physical exam. Will provide diuretics as needed for diuresis, however, will weigh against need for kidney protection. - Wean off oxygen as tolerated, want sats >94% - Repeat BMP and Mg in AM - Work up for ARIELLA--may benefit from CPAP at night # NSTEMI - Catheterization occurred this evening - Continue heparin ggt - Continue aspirin 81mg - Continue Plavix 75mg QD PO - Consider 40mg QD - ANNAMARIE-I/ARB considered for cardio remodeling prevention but held in setting of RAY - Nitroglycerin 0.4mg SL PRN for chest pain # Atrial flutter with RVR - Continue metoprolol 12.5mg Q6H, titrate to HR in the 50s; hold if HR <50, Systolic BP <90 - Elevated [id number]; patient may benefit from anticoagulation; to discuss anticoag with cards after catheterization procedure # CKD # RAY # Hypocalcemia - Creatinine has been hovering in the ~1.6 - 2.0 range. Will continue to monitor. Patient underwent catheterization today without full IV fluid prophylaxis due to hypoxemia, so likely see an increase tomorrow. - Continue tacrolimus 2mg AM, 1mg PM - Continue MMF 250mg BID - Continue calcitriol 0.5mcg every other day - Continue vit C 500 mg TID PO - Continue potassium phosphate 1000mg BID - Daily weights - Avoid nephrotoxic drugs - Repeat BMP in the AM #DM2 - Glucose adequately controlled - Continue glipizide 5mg QD PO - Continue sliding scale insulin #Hypothyroidism - Continue Levothyroxine 137 mcg QD PO #Urinary Retention - Whaley in place - Continue tamsulosin 0.4mg QD PO # Routine GI: Pantoprazole 40mg QD Dispo: Pending catheterization; d/c ?Thursday ?? Destinee Leggett M4 Pager: [phone] * Plan of Care - Sharon Ruth RN - 02/02/2019 2:25 PM EDT Problem: Skin Integrity Impairment, Risk/Actual (Adult) Goal: Identify Related Risk Factors and Signs and Symptoms Related risk factors and signs and symptoms are identified upon initiation of Human Response Clinical Practice Guideline (CPG) Outcome: Ongoing (Interventions Implemented as Appropriate) OUTCOME EVALUATION NOTE: OUTCOME SUMMARY: Patient alert and oriented x4, able to make needs known. Patient frequently desaturating to the mid80s, patient placed back on high flow nasal cannula. Patient titrated up to 55% Fio2 to maintain saturations >90%. Patient transitioned to NPO for cardiac cath later today (patient did have a small amount of breakfast). Second IV placed and new medications ordered and administered in preparationfor cardiac cath (see MAR). Patient had a 5 second run of SVT, vital signs obtained and primary team aware. Patient asymptomatic. Patient had a complete shower. Patient ambulating throughout the roomwith a stand by assist. Whaley catheter patent, draining concentrated marry urine. Patient remains on the heparin drip, continuing to monitor labs per order. 1500 Patient desaturating to the high 80s. Oxygen increased to 80% Fio2. Primary team, life safety,and respiratory aware. STAT ABG and xray ordered and obtained. Patient repositioned to sitting edgeof bed. New medications ordered and administered (see MAR). Whaley catheter put out 800mL after lasix administration. Patient continues to desat to the low 80s requiring up to 100% Fio2 to recover. 1653 patient transferred to the molder labels PLAN MOVING FORWARD: Telemetry Heparin drip Bleeding precautions INDIVIDUALIZED FALL PREVENTION INTERVENTIONS: Patient-specific fall risk factors per assessment: [current deficits]: Weakness, deconditioning, IV/oxygen tubing, telemetry Assistance [level of assistance required for transfers and ambulation]: Stand by assist Supervision [direct monitoring required during toileting and ADLs]: Eyes on Surveillance [continuous indirect monitoring]: Room near nurses station, hourly rounding, bed alarm Patient-specific fall prevention interventions for sensory deficits provided, if applicable: [X] Yes CPG GOAL OUTCOME EVALUATION: Goal: Skin Integrity/Wound Healing Patient will demonstrate the desired outcomes by discharge/transition of care. Outcome: Ongoing (Interventions Implemented as Appropriate) 02/01/19 0302 Skin Integrity Impairment, Risk/Actual (Adult) Skin Integrity/Wound Healing making progress toward outcome Problem: Patient Care Overview Goal: Plan of Care Review Outcome: Ongoing (Interventions Implemented as Appropriate) 02/01/19 0303 02/02/19 1000 Plan of Care Review Progress no change -- Coping/Psychosocial Plan Of Care Reviewed With -- patient Goal: Fall Prevention-Safe Patient Handling Outcome: Ongoing (Interventions Implemented as Appropriate) 02/02/19 1000 02/02/19 1352 Stephens Fall Risk History of Falling 0 -- Secondary Diagnosis 15 -- Ambulatory Aids 15 -- Intravenous Therapy/Heparin/Saline Lock 20 -- Gait/Transferring 10 -- Mental Status 0 -- Score 60 -- OTHER Stephens Fall Risk High -- Restraint Interventions Safety Promotion/Fall Prevention -- safety round/check completed Positioning Body Position -- independent Activity Activity Type -- activity adjusted per tolerance Activity Assistance Provided -- assistance, stand-by Assistive Device Utilized -- oxygen Goal: Infection Control Outcome: Ongoing (Interventions Implemented as Appropriate) 02/02/19 1000 02/02/19 1352 Safety Interventions Isolation Precautions -- standard precautions maintained Infection Prevention -- single patient room provided Coping Strategies Supportive Measures verbalization of feelings encouraged;active listening utilized -- Goal: Discharge Needs Assessment Outcome: Ongoing (Interventions Implemented as Appropriate) 02/01/19 0303 Discharge Needs Assessment Readmission Within The Last 30 Days no previous admission in last 30 days Equipment Needed After Discharge none Current Discharge Risk chronically ill Activity/Self Care Review of Systems Equipment Currently Used at Home none Living Environment Transportation Available family or friend will provide;car Goal: Interdisciplinary Rounds/Family Conf Outcome: Ongoing (Interventions Implemented as Appropriate) 02/01/19 0302 Interdisciplinary Rounds/Family Conf Participants nursing;patient;physician Problem: Cardiac: Heart Failure (Adult) Goal: Signs and Symptoms of Listed Potential Problems Will be Absent, Minimized or Managed (Cardiac: Heart Failure) Signs and symptoms of listed potential problems will be absent, minimized or managed by discharge/transition of care (reference Cardiac: Heart Failure (Adult) CPG). Outcome: Ongoing (Interventions Implemented as Appropriate) 02/02/19 1416 Cardiac: Heart Failure Problems Assessed (Heart Failure) dysrhythmia/arrhythmia;fluid/electrolyte imbalance;sleep-disordered breathing * Initial Assessments - Mahsa Celestin RN - 02/02/2019 1:55 PM EDT Office of Care Management Initial Assessment Mahsa Celestin RN reviewed record and discussed patient with Care Team. Source of Information: Chart review, patient Introduced self/reviewed role; services accepted. Reason for Hospitalization: Past Medical History: Diagnosis Date ??? Back pain ??? Colon polyp ??? CVA (cerebral vascular accident) Per report but no deficits ??? ESRD (end stage renal disease) ??? GERD (gastroesophageal reflux disease) ??? HTN (hypertension) ??? Microhematuria ??? Type 2 diabetes mellitus Hospitalizations Within the Past 30 Days: No Anticipated Length Of Stay (If known): Current Decision-Making Capacity: Patient is alert and oriented and able to make decisions. Advance Care Planning: Has advanced directives and Mundo Bolden is DPOA HC. A copy is in medical record and patient confirms that this is current. Current Coping/Education/Information Needs: Coping well with hospital stay and feels updated on issues and plan. Current Functional Ability: Patient is SBA with nursing. Functional Status Prior to Admission: Independent, drives. Uses a walker when needed, stated he hadone when he had his knee done. Home Environment: One level, 4 steps to enter, railing Social & Family Supports/Community Resources: Lives with . Son lives close by. Behavioral Health History: Denies any history of mental illness, depression or anxiety Substance Use/Abuse: Does not smoke, drink alcohol, use non prescribed drugs or marijuana. States he used marijuana when he had his knee and shoulder done. Other Pertinent/Service Specific Information: None Health/Prescription Coverage: Primary Insurance: MEDICARE Secondary Insurance: COMMERCIAL GENERIC Prescription Coverage: Yes Preferred Pharmacy: [id number] [id number] Not a 24 hour pharmacy; exact hours not known [facility] [address] Not a 24 hour pharmacy; exact hours not known Other: None Primary Care Provider: Urbano Denis DO [phone] Patient/Caregiver Goals of Treatment: To get the hell out of here. Patient was pleasant while answering question. Potential Needs for Transition of Care: Rehab/SNF: None Home Health: Declined Services DME: Has a walker available if needed If there is a need for oxygen on discharge patient will use [employer] as a Vendor. Dialysis: None Community Resources: None Transportation: Other: None Anticipated Barriers to Discharge/Special Considerations: None Assessment: Patient is independent, has adequate insurance and prescription coverage, housing and family support. Plan: To be determined by course of hospital stay. A member of the Care Management team will continue to monitor progress, follow for continuity of care and assist with transition of care planning. Mahsa Celestin, RN Pager: [phone] * Plan of Care - Nika Starr - 02/02/2019 9:59 AM EDT Images from the original note were not included. Pre-Sedation Assessment: ASA: 3: Patient with severe systemic disease Mallampati: III: only the base of the uvula can be seen Cardiovascular: Rhythm: Irregular: irregular Rate: Abnormal: irregular Pulmonary: bibasilar crackles H&P reviewed: Yes Confirm NPO status: Yes History of anesthetic complications: No Current medications reviewed: Yes Allergies reviewed: Yes Sedation Plan: moderate (conscious sedation) The sedation plan, its benefits and risks, and alternatives were discussed with the patient. The planned procedure, its benefits and risks, and alternatives were discussed with the patient. The patient consented to the procedure. Procedure: left heart cath, coronaries Nika Starr MD Risk Officer * Plan of Care - Polina Glaser RN - 02/02/2019 12:36 AM EDT Problem: Patient Care Overview Goal: Plan of Care Review Outcome: Ongoing (Interventions Implemented as Appropriate) 02/01/19 0303 02/01/192029 Plan of Care Review Progress no change -- Coping/Psychosocial Plan Of Care Reviewed With -- patient OUTCOME EVALUATION NOTE: OUTCOME SUMMARY: Pt requiring hi flow to maintain oxygen saturation >90%. Currently on 60L 50% fiO2. LS clear anddim s/p neb for wheezing. Chest xray completed. Pt c/o of SOB/being uncomfortable but denies chest pain. Pt A+Ox4. Tele showing sinus rhythm with PACs and PVCs. Urine is dark yellow in color. Will CTM and notify the team with changes. PLAN MOVING FORWARD: ? Further diuresis- monitor kidney fxn Heparin gtt ? Cardiac cath INDIVIDUALIZED FALL PREVENTION INTERVENTIONS: Patient-specific fall risk factors per assessment: [current deficits]: Oxygen requirement, fluid overload Assistance [level of assistance required for transfers and ambulation]: SBA Supervision [direct monitoring required during toileting and ADLs]: Arms reach Surveillance [continuous indirect monitoring]: Facundo, tele, purposeful rounding Patient-specific fall prevention interventions for sensory deficits provided, if applicable: N/A CPG GOAL OUTCOME EVALUATION: * Plan of Care - Ethel Darling RN - 02/01/2019 5:28 PM EDT Problem: Skin Integrity Impairment, Risk/Actual (Adult) Goal: Identify Related Risk Factors and Signs and Symptoms Related risk factors and signs and symptoms are identified upon initiation of Human Response Clinical Practice Guideline (CPG) Outcome: Ongoing (Interventions Implemented as Appropriate) OUTCOME EVALUATION NOTE: OUTCOME SUMMARY: Patient a/o x4, VSS, able to make needs known. Able to transition to 6L/NC. Heparin drip maintainedper protocol- see SEP. Next UFH check at 2300. All other meds given as ordered. No c/o pain. Able to tolerate food w/o n/v. Glycemic control maintained- see chart. Will continue to monitor and communicate with the team any changes of status or needs that arise. PLAN MOVING FORWARD: Safety and comfort care Monitor respiratory status Tele monitoring Safe DC plan INDIVIDUALIZED FALL PREVENTION INTERVENTIONS: Patient-specific fall risk factors per assessment: [current deficits]: tubing Assistance [level of assistance required for transfers and ambulation]: SBA Supervision [direct monitoring required during toileting and ADLs]: SBA Surveillance [continuous indirect monitoring]: Tele, facundo, call light within reach, room near unit station, purposeful rounding Patient-specific fall prevention interventions for sensory deficits provided, if applicable: yes CPG GOAL OUTCOME EVALUATION: Goal: Skin Integrity/Wound Healing Patient will demonstrate the desired outcomes by discharge/transition of care. Outcome: Ongoing (Interventions Implemented as Appropriate) 02/01/19 0302 Skin Integrity Impairment, Risk/Actual (Adult) Skin Integrity/Wound Healing making progress toward outcome Problem: Patient Care Overview Goal: Plan of Care Review Outcome: Ongoing (Interventions Implemented as Appropriate) 02/01/19 0303 02/01/19 0900 Plan of Care Review Progress no change -- Coping/Psychosocial Plan Of Care Reviewed With -- patient Goal: Fall Prevention-Safe Patient Handling Outcome: Ongoing (Interventions Implemented as Appropriate) 02/01/1989902/01/19 1619 Stephens Fall Risk History of Falling 0 -- Secondary Diagnosis 15 -- Ambulatory Aids 15 -- Intravenous Therapy/Heparin/Saline Lock 20 -- Gait/Transferring 10 -- Mental Status 0 -- Score 60 -- OTHER Stephens Fall Risk High -- Restraint Interventions Safety Promotion/Fall Prevention -- safety round/check completed Positioning Body Position -- independent Activity Activity Type activity adjusted per tolerance -- Activity Assistance Provided assistance, stand-by -- Goal: Infection Control Outcome: Ongoing (Interventions Implemented as Appropriate) 02/01/1989902/01/19 1619 Safety Interventions Isolation Precautions -- standard precautions maintained Infection Prevention -- rest/sleep promoted Coping Strategies Supportive Measures verbalization of feelings encouraged;active listening utilized;self-care encouraged -- Goal: Discharge Needs Assessment Outcome: Ongoing (Interventions Implemented as Appropriate) 02/01/19 0303 Discharge Needs Assessment Readmission Within The Last 30 Days no previous admission in last 30 days Equipment Needed After Discharge none Current Discharge Risk chronically ill Activity/Self Care Review of Systems Equipment Currently Used at Home none Living Environment Transportation Available family or friend will provide;car Goal: Interdisciplinary Rounds/Family Conf Outcome: Ongoing (Interventions Implemented as Appropriate) 02/01/19 0302 Interdisciplinary Rounds/Family Conf Participants nursing;patient;physician * Med Student Progress Note - Destinee Ochoa - 02/01/2019 8:54 AM EDT Med Student Progress Note ?? ID: Ethel Bolden is a 68 y.o. male with a history of Hep C treated with Harvoni, DM2, HTN, kidney transplant 2016 with ureterol reconstruction who presented with decreased urine output and dizziness. ?? 24 Hour Events: - 1L bolus in ED - Aflutter 150s, 2:1, 10mg dilt --> 25mg --> normal sinus - Heart burn relieved with nitro, no acute changes on EKG, but troponins elevated - NPO at midnight for nuc stress and TTE today - Desat overnight, required 12L ventomask; CXR: pulm edema; IV fluids stopped Subjective: Mr. Bolden is a bit sleepy this morning. He denies any chest pain, shortness of breath (while talking, he removed his high flow device), no heart burn, no abdominal pain, or leg swelling Vitals: Last value Range last 24 hrs Temperature Temp: 36.7 ??C (98.1 ??F) Temp: [36.5 ??C (97.7 ??F)-37 ??C (98.6 ??F)] Heart Rate Heart Rate: 66(tele) Heart Rate: [51-148] Blood Pressure BP: 138/76 BP: (96-156)/(68-113) Respiratory Rate Resp: 20 Resp: [16-35] SpO2 SpO2: 92 % SpO2: [85 %-98 %] Art BP BP (Arterial Line): -- ?? Intake/Output Summary (Last 24 hours) at 02/01/2019 0854 Last data filed at 02/01/2019 0800 Gross per 24 hour Intake 500 ml Output 775 ml Net -275 ml ?? PE: General: In no acute distress, lying in bed, sleepy-appearing Neuro: Oriented x 3 Cardiac: Distant heart sounds, irregular rate and rhythm, no m/r/g Lungs:??Some crackles in lung bases b/l Abdomen: + BS, no tenderness to palpation Extremities: Trace edema in ankles b/l ?? Pertinent Labs: WBC: 10.5 (12.1) Hgb: 13.5 (15.2) Plt: 215 (238) Arterial blood: pH 7.46, pCO2 33, HCO3 22 Na: 140 (whole blood 134) K: 3.3 (whole blood 3.7) BUN: 29 Cr: 1.66 <-- 2.12 <-- 1.82 <-- 1.99 Ca: 7.1 Albumin: 4.3 Relevant Imaging: CXR 01/31/19 12:47 Small bilateral pleural effusions. No overt pulmonary edema. EKG 01/31/19 Atrial flutter with 2:1 A-V conduction Left anterior fascicular block Nonspecific ST and T wave abnormality Abnormal ECG When compared with ECG of 04-NOV-2017 12:43, Significant changes have occurred US Renal Transplant Left 01/31/19 1. Left lower quadrant renal transplant shows normal corticomedullary differentiation. No collecting system dilatation or peritransplant collection identified. 2. Normal intrarenal arcuate artery resistive indices. 3. Interrogated main renal artery and vein are patent. CXR 02/01/19 00:08 Pulmonary vascular congestion and edema with trace bilateral pleural effusions. EKG 02/01/19 Sinus rhythm with Premature atrial complexes Left axis deviation ST & T wave abnormality, consider anterolateral ischemia Abnormal ECG When compared with ECG of 31-JAN-2019 18:31, (unconfirmed) Atrial bigeminy is no longer present Transthoracic Echocardiogram 02/01/19 1. The left ventricular chamber size is normal. Mild concentric left ventricular hypertrophy is observed. Global left ventricular systolic function is moderately reduced. Ejection fraction is estimated to be 30%. with beat to beat variation. There is diffuse hypokinesis present. Doppler assessment is consistent with elevated left sided filling pressure. 2. Right ventricular chamber size, wall thickness, and systolic function are within normal limits. The estimated pulmonary artery systolic pressure is 48 mmHg. The estimated right atrial pressure is 15 mmHg. 3. The left atrium is severely dilated. 4. There is mild to moderate (1-2+/4+) mitral regurgitation present. 5. There is mild to moderate (1-2+/4+) tricuspid regurgitation present. 6. See remainder of report for additional findings. 7. Compared to the prior study from 2014, there has been a significant decrement in LV function. Assessment and Plan: Ethel Bolden is a 68 y.o. male with a history of Hep C treated with Harvoni, DM2, HTN, kidney transplant 2016 with ureterol reconstruction who presented with decreased urineoutput and dizziness. With his elevated troponins, patient likely had an NSTEMI, possibly leading to the aflutter event. Mr. Bolden has been started on ACS medications per protocol, and catheterization procedure has been discussed with cards--likely tomorrow. In the setting of his CKD and improving RAY's, discussed case with Dr. Eagle--okay with dye load as long as we hydrate with fluids prior, during, and after procedure. Holding fluids currently as pulm edema was likely due to aggressive hydration in setting of ACS, as opposed to heart failure. Gave Lasix this morning; will follow electrolytes to monitor for imbalances. Repleted K. Attempt to wean off oxygen with sats >94. Manageaflutter with metoprolol right now, goal HR in the 50s. As for Mr. Bolden's kidney disease, continue current home regimen, and follow-up on creatinine regarding improvement of RAY (likely due to pre-renal insult from cardiogenic shock). # NSTEMI - Continue heparin ggt - Begin aspirin 81mg - Continue Plavix 75mg QD PO - Begin atorvastatin 40mg QD - ANNAMARIE-I/ARB considered for cardio remodeling prevention but held in setting of RAY - Nitroglycerin 0.4mg SL PRN for chest pain - Catheterization; likely tomorrow but timing unknown; patient to be treated with 1L 1/2 NS + 1 ampbicarb at 75mL/hr through catheterization until 4 hours after procedure for renal protection per Dr. Eagle's recommendation # Atrial flutter with RVR - Continue metoprolol 12.5mg Q6H, titrate to HR in the 50s; hold if HR <50, Systolic BP <90 - Elevated [id number]; patient may benefit from anticoagulation but unclear if aflutter was isolated event or due to underlying ACS; to discuss anticoag with cards # Pulm Edema # Hypoxic resp failure # Hypokalemia - Wean off oxygen as tolerated, want sats >94% - Replete K with 40mg KCl - 20mg IV furosemide this AM - Repeat BMP and Mg to monitor electrolytes in setting of diuresis # CKD # RAY # Hypocalcemia - Continue tacrolimus 2mg AM, 1mg PM - Continue MMF 250mg BID - Continue calcitriol 0.5mcg every other day - Continue vit C 500 mg TID PO - Continue potassium phosphate 1000mg BID - Daily weights - Avoid nephrotoxic drugs #DM2 - Continue glipizide 5mg QD PO - Continue sliding scale insulin #Hypothyroidism - Continue Levothyroxine 137 mcg QD PO #Urinary Retention - Whaley in place - Continue tamsulosin 0.4mg QD PO # Routine GI: Pantoprazole 40mg QD Dispo: Pending catheterization; d/c ?Thursday ?? Destinee Leggett M4 Pager: [phone] * Consult Note - Larry Garay MD - 02/01/2019 5:50 AM EDT Critical Care Evaluation Briefly, critical care was consulted for hypoxemia. The patient has a history of HCV, DM, HTN, s/p kidney transplant who presented yesterday with lightheadedness and low urine output. He was found tohave an RAY, new onset afib and a type II NSTEMI. He received a liter of LR in the ED and was placed on a rate of IVF at 75 cc/hr. He was started on a heparin gtt for new onset afib. He was admitted on room air and his oxygen requirement increased to 50% high flow nasal cannula. Urine output has been minimal at 375 cc. At the bedside the patient denies shortness of breath, chest pain. He requests to be allowed to sleep. Last value Range last 24 hrs Temperature Temp: 36.7 ??C (98.1 ??F) Temp: [36.5 ??C (97.7 ??F)-37 ??C (98.6 ??F)] Heart Rate Heart Rate: 66(tele) Heart Rate: [51-148] Blood Pressure BP: 111/75 BP: (96-156)/(68-113) Respiratory Rate Resp: 24 Resp: [16-35] SpO2 SpO2: 91 % SpO2: [85 %-98 %] Art BP BP (Arterial Line): -- Gen: Awake, somnolent, NAD CV: Irregular, S1, S2, unable to auscultate a murmer Pulm: CTAB auscultated anteriorely Abd: Obese, nontender to palpation Labs reviewed: K: 3.3 Cr: 1.66 Radiology reviewed: CXR: Pulmonary edema Assessment: 68 y.o. male who presents with RAY who developed pulmonary edema after fluid resuscitation. Plan: -maintain at current level of care -advise diuresis, patient is not on home diuretics -if volume management continues to be a challenge, TTE may be advisable -call back if there is a change in the patient's clinical status Larry Garay MD 02/01/2019 * Plan of Care - Polina Glaser RN - 02/01/2019 4:04 AM EDT Problem: Patient Care Overview Goal: Plan of Care Review Outcome: Ongoing (Interventions Implemented as Appropriate) 01/31/19 1930 02/01/19 0303 Plan of Care Review Progress -- no change Coping/Psychosocial Plan Of Care Reviewed With patient -- OUTCOME EVALUATION NOTE: OUTCOME SUMMARY: VSS. Pt A+Ox4. Denies pain. Vomited at start of shift. IV compazine administered with good effect. Pt having difficulty maintain sats. See progress note. Chest xray completed. Trop came back elevated. CORROSION ENGINEER Giselle notified. STAT EKG completed. Heparin gtt infusing as ordered. Life safety came to bedside. IVF decreased to 75cc/hr from 120cc/hr. Tele in sinus rhythm with frequent PVCs. Will CTM and notify the team with changes. 0410- Pt continues to have difficulty maintain sats on venti mask. Placed on Hi- flow mask. IVF stopped. Rt at bedside. ABG drawn. Life safety and CORROSION ENGINEER at bedside. PLAN MOVING FORWARD: Tele Monitor resp status Trend trop Heparin gtt INDIVIDUALIZED FALL PREVENTION INTERVENTIONS: Patient-specific fall risk factors per assessment: [current deficits]: Generalized weakness, whaley Assistance [level of assistance required for transfers and ambulation]: SBA Supervision [direct monitoring required during toileting and ADLs]: Hands on Surveillance [continuous indirect monitoring]: jose l Crum Patient-specific fall prevention interventions for sensory deficits provided, if applicable: N/A CPG GOAL OUTCOME EVALUATION: * Consult Note - Jomar Mendoza RN - 02/01/2019 3:17 AM EDT ID: Ethel Bolden is a 68 y.o. 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 He did not feel his heart going rapidly. Denied chest pain. Quite active - walks stairs etc. Found to have RAY. Had been drinking 3 liters fluid aday. Did not have any diarrhea. Had poor appetite. Nausea and some vomiting in ED. Received nitroglycerin and heartburn went from 10 to 0. ?? 24 brief history: Life safety RN consulted around 0245 for new oxygen demand. Per primary RN reportpatient arrived from ED earlier this shift and had a new oxygen requirement. Per chart, patient arrived on RA and was transitioned to venti mask shortly after arrival. Pt received 1 L LR bolus in ED.Prior to life safety RN consult, CXR was performed. Subject/Objective Data: Vital signs: 03:00: Temp 36.7 Axillary, HR 51, BP 111/75, RR 22, O2 sat 90% on venti mask 50% Neuro: Pt resting in bed, sleeping upon assessment, but easy to arouse, conversing with staff. Alert and oriented x4. +FC x4 with equal strength. Resp: Pt on venti mask with o2 sat 90% asleep. Pt denying SOB or any change in breathing status from his baseline. Lungs coarse, diminished in bases. CV: Heart rate irregular, bradycardic. Denies CP. Skin warm to touch, dry. GI/: Denies N/V. Abdomen soft, non-tender. +flatus. Whaley in place with concentrated yellow urine. Diagnostic: Chest XR 01/31/2019 @22:42: IMPRESSION: Pulmonary vascular congestion and edema with trace bilateral pleural effusions. Labs: BMP, coag, CBC: pending AB.46/32.9/121.7/22.9 Fo2Hb 97.4 on HFNC 60% Assessment/Plan: Upon RN arrival to unit, patient resting comfortably in bed, appearing in no active distress. Patient denied any SOB or changes in his breathing, stating I just want to get to sleep. While asleep, audible upper airway noise noted with each breath. Lung sounds remained coarse and diminished in bases. Primary BEE BREEDER notified with concern of new oxygen demand. Plan made to d/c IVF r/tincreased pulmonary congestion shown on CXR and elevated troponin. AM labs drawn to evaluate RAY and d/c of IVF. MD expressed concerns of sleep apnea. When patient originally awake no increases in O2sat noted. AIR DEFENSE SPECIALIST notified and down to eval. Plan made for transition to HFNC in hope that more flow would help with O2 demand and questionable upper airway interference. Patient refusing to sleep with HOB elevated. HFNC transitioned to HFM d/t patient breathing with mouth primarily. No apnea episodesnoted. ABG was drawn, showing FO2Hb of 97.4% and PaO2 of 121.7. While the ABG was being drawn, patient O2 sat noted to increase to 95% when stimulated, awake, and sitting up in bed. HFM weaned to 50%FiO2 and patient educated on importance of head elevation. Patient agreeable to try HOB elevation while sleeping. Patient refusing cpap, stating I wore that a couple of years ago and don't want it.BEE BREEDER consulted critical care fellow at this time. Lasix IVP was discussed to help with new pulmonary congestion. Plan made to re evaluate s/p AM labs (ie. BUN/Cr) for concern of worsening RAY. Plan made with BEE BREEDER, primary RN, and nurse discharge for continued monitoring of oxygen status, repeat troponin at 1000, and a echo. Nursing advised to please contact life safety with any change in oxygenation or respiratory status. Disposition: Patient remained in room on HFM at 50%. Due to new oxygen demand and pulmonary congestion discussion of transfer to a higher level of care may be needed for increased monitoring if patient continues to have issues with oxygenation. Plan made with primary RN, BEE BREEDER, and nurse discharge to have patient remain on floor r/t patient response to sitting up and being awake in bed. Primary and chargeRN encouraged to please call with any patient condition change, question, or concern. Thank you. * Consult Note - Guille Cheung MD - 01/31/2019 7:26 PM EDT Cardiology Consult Note Date of Consultation: 01/31/2019 Admit Date: 01/31/2019 Hospital Day 0 days Reason for Consult: Positive troponin, EKG changes, ?chest pain Active Problems: Active Hospital Problems Diagnosis ??? Atrial fibrillation with RVR - had flutter initially, then fib Resolved Hospital Problems No resolved problems to display. HPI: Ethel Bolden is a 68 y.o. male with a history significant for HCV s/p treatment with harvoni, T2DM, HTN, ESRD s/p kidney transplant in 2016 c/b ureteral reconstruction and ?atrial fibrillation who presented with poor urine output and lightheadedness. In the ED, was found to be in atrial flutter with heart rates in the 150s. Patient was treated with IV diltiazem in the ED and had conversion from atrial flutter to atrial fibrillation, then to sinus rhythm. Patient also reported some heartburn symptoms - he states these symptoms are similar to the symptoms he has had for the last 30 years. No known cardiac history. As part of his pre-transplant evaluation, Mr. Bolden underwent a dobutamine stress echo with normal findings. No cardiac imaging since then. Has been having the same heartburn symptoms for years. Stopped his PPI for some reason several weeks ago - has been eating a lotof TUMS. In the ED, EKG showed lateral T-wave inversions, new from prior EKGs. He had a positive tro ponin (in the setting of chronically elevated creatinine) of 0.04-> 0.07. Admitted to hospital medicine who requested cardiology weigh in on next steps. Past Medical History: Diagnosis Date ??? Back [...] EXTREMITY performed by Que Amaro MD at [facility] MAIN OR ??? PRO CYSTOURETHROSCOPY, URETER CATHETER Left 06/17/2018 CYSTO, RETROGRADE, URETEROPYELOGRAPHY (WRVU 2.37) performed by Edinson Grider III, MD at [facility] [place] ??? PRO REIMPLANT URETER, SINGLE URETER Left 05/20/2016 @URETERONEOCYSTOSTOMY ANASTOMOSIS OF SINGLE URETER TO BLADDER performed by Santosh Arredondo MD at [facility] MAIN OR ??? PRO REIMPLANT URETER, SINGLE URETER N/A 05/20/2016 @URETERONEOCYSTOSTOMY ANASTOMOSIS OF SINGLE URETER TO BLADDER performed by Que Amaro MD at [facility] MAIN OR ??? PRO TOTAL KNEE ARTHROPLASTY Right 11/25/2017 TOTAL KNEE ARTHROPLASTY (WRVU 20.72) performed by Breezy Dale MD at [facility] MAIN OR ??? PRO TRANSPLANT, PREP CADAVER RENAL GRAFT N/A 09/16/2015 @PREPARATION CADAVERIC RENAL ALLOGRAFT performed by Larry Larkin MD at [facility] MAIN OR ??? PRO TRANSPLANTATION OF KIDNEY N/A 09/16/2015 @KIDNEY TRANSPLANT, WITHOUT RECIPIENT NEPHRECTOMY performed by Larry Larkin MD at [facility] MAIN OR ??? US RENAL TRANSPLANT LEFT Left 01/31/2019 US Renal Transplant Left 01/31/2019 [facility] RAD ULTRASOUND No Known Allergies Cardiac Medications: Plavix 75mg daily Out-Patient Medications: Medications Prior to Admission Medication Sig Dispense Refill Last Dose ??? tamsulosin (FLOMAX) 0.4 mg Capsule Take 0.4 mg by mouth daily. 01/31/2019 at Unknown time ??? glipiZIDE (GLUCOTROL XL) 5 mg Tablet Extended Rel 24 hr Take 1 tablet by mouth daily. 01/31/2019at Unknown time ??? acetaminophen (TYLENOL) 500 mg Tablet Take 1,000 mg by mouth every 8 hours as needed for Pain. 01/31/2019 at Unknown time ??? mycophenolate (CELLCEPT) 250 mg Capsule Take 1 capsule by mouth 2 times daily. Kidney Transplant ICD Code Z94.0 60 capsule 8 01/31/2019 at Unknown time ??? tacrolimus (PROGRAF) 1 mg Capsule TAKE TWO CAPSULES BY MOUTH EVERY MORNING, TAKE ONE CAPSULE BYMOUTH NIGHTLY . 90 capsule 8 01/31/2019 at Unknown time ??? potassium phosphate, monobasic, (K-PHOS ORIGINAL) 500 mg Tablet, Soluble Take 2 tablets by mouth 2 times daily. DISSOLVE IN WATER PRIOR TO ADMINISTRATION 540 tablet 3 01/31/2019 at Unknown time ??? Magnesium Gluconate 27 mg magnesium (500 mg) Tablet TAKE TWO TABLETS BY MOUTH TWICE A DAY 360 tablet 3 01/31/2019 at Unknown time ??? calciTRIol (ROCALTROL) 0.5 mcg Capsule TAKE ONE CAPSULE BY MOUTH EVERY DAY 90 capsule 3 01/31/2019 at Unknown time ??? polyethylene glycol (MIRALAX) 17 gram Powder in Packet Take 17 g by mouth 2 times daily. Take to maintain normal bowel pattern while taking narcotic pain medication. 01/31/2019 at Unknown time ??? levothyroxine (SYNTHROID) 137 mcg Tablet Take 137 mcg by mouth daily. 01/31/2019 at Unknown time ??? ascorbic acid, vitamin C, (VITAMIN C) 500 mg Tablet Take 1 tablet by mouth 3 times daily. 30 tablet 3 01/31/2019 at Unknown time ??? clopidogrel (PLAVIX) 75 mg Tablet Take 75 mg by mouth daily. 01/31/2019 at Unknown time In-Patient Medications: ??? ascorbic acid 500 mg Oral TID ??? calciTRIol 0.5 mcg Oral Every Other Day ??? [START ON 02/01/2019] clopidogrel 75 mg Oral Daily ??? [START ON 02/01/2019] glipiZIDE 5 mg Oral Daily with breakfast ??? [START ON 02/01/2019] levothyroxine 137 mcg Oral Daily ??? mycophenolate 250 mg Oral BID ??? [START ON 02/01/2019] potassium phosphate (monobasic) 1,000 mg Oral BID ??? [START ON 02/01/2019] tacrolimus 2 mg Oral QAM And ??? tacrolimus 1 mg Oral Nightly ??? tamsulosin 0.4 mg Oral Daily ??? sodium chloride 0.9 % (flush) 5 mL Intravenous BID ??? insulin lispro 1-4 Units Subcutaneous TID AC ??? pantoprazole 40 mg Oral Daily ??? metoprolol 12.5 mg Oral Q6H JUAN R ??? heparin (porcine) 4,000 Units Intravenous Once ??? sodium chloride 0.9% 120 mL/hr (01/31/19 1334) ??? heparin (porcine) Family History: Family History Problem Relation Age [...] file Gets together: Not on file Attends [employer] service: Not on file Active member of [...] Social History Narrative ??? Not on file Review of Systems: 11 point ROS is either negative or as described in HPI Physical Exam: Last value Range last 8 hrs Temperature Temp: 36.7 ??C (98 ??F) Temp: [36.7 ??C (98 ??F)] Heart Rate Heart Rate: 71 Heart Rate: [70-148] Blood Pressure BP: 139/86 BP: (96-152)/(68-113) Respiratory Rate Resp: 24 Resp: [18-35] SpO2 SpO2: 93 % SpO2: [90 %-93 %] No intake or output data in the 24 hours ending 01/31/191926 Wt & BMI By Encounter Date ED to Hosp-Admission (Current) from 01/31/[address] [place] [address] Office Visit from 09/15/2018 in Solid Organ Transplant at [place] Weight 106.1 kg (234 lb) 1 01/31/2019 1110 105.2 kg (232 lb) [with clothes (224.0 without)] 1 09/15/2018 1112 BMI 32.63 1 01/31/2019 1110 -- Obese gentleman, laying in bed appearing comfortable PERRL, EOMI RRR, no clear m/r/g Abdomen distended, non-tender Lungs with some crackles at bilateral bases ECG: Current: Normal sinus rhythm with jacqueline-lateral ST changes ECHO: Pending CXR: Pulmonary edema Recent Labs 01/31/19 1157 01/31/19 0946 WBC 11.7* 11.0* HGB 17.0* 17.0* HCT 49.8* 49.5* PLATELET 295 270 Recent Labs 01/31/19 1620 01/31/19 1157 01/31/19 0946 NA 139 136 136 K 3.9 4.1 4.5 CL 100 96* 96* CO2 27 26 26 BUN 28* 29* 30* CREATININE 2.12* 1.82* 1.99* Recent Labs 01/31/19 0946 AST 19 ALT 22 ALKPHOS 68 BILITOT 2.8* Recent Labs 01/31/19 1620 01/31/19 1157 01/31/19 0946 CALCIUM 9.6 10.1 10.3 MAGNESIUM -- -- 0.76 PHOS -- -- 3.7 No results for input(s): INR, PT, PTT in the last 168 hours. Recent Labs 01/31/19 16201/31/19 1157 TROPONINT 0.04* 0.03* No results found for: PROBNP Assessment/Recommendations: Mr. Bolden is a complicated 68yo gentleman with a PMH significant for multiple cardiac risk factors and ESRD s/p kidney transplant in 2016 now presenting with symptoms of palpitations in the setting of atrial flutter (now back in sinus), GERD symptoms, a positive troponin and EKG abnormalities. Unfortunately he also has worsening renal function. Cardiology was consulted regarding next steps in e valuation of his positive troponin and EKG changes. Most likely explanation is demand ischemia in the setting of rapid atrial flutter. That said, givenhis risk factors, his rising troponin, and his lateral ST and T wave abnormalities, a primary ischemic injury must be on the differential. He is on heparin (started initially for atrial fibrillation)and is already on Plavix. No prior history of coronary artery disease, but (as stated), has all therisk factors for coronary disease. Given his transplanted kidney and his RAY, we should do everything we can to avoid challenging his kidneys with a contrast load. First step would be an echo and a nuclear stress test. He also likely needs diuresis as he is volume overloaded - it probably makes sense to first see what his echo looks like - if his cardiac function is normal, his poor urine output may be more related to worsening kidney function, although his creatinine is not really much off hisbaseline (~1.3) and he almost undoubtedly has some diastolic dysfunction. Agree with heparin for now, trending troponins. No recurrent GERD symptoms - next time he has symptoms please attempt a GI cocktail to see if this improves his symptoms - if it doesn't, angina is increasingly likely. We can get a better sense of his cardiac function after the nuclear stress test and echocardiogram. Cardiology will continue to follow. Jessee Nance MD Risk Officer [phone] POST ROUNDS ADDENDUM 68 year old male with a history of ESRD s/p kidney transplant in 2016 with mary- operative atrial flutter (absent on f/u zipopatch), HCV, HTN, DM who presented with two days of decreased urine output.On admission, troponin elevated to 0.03 and has since uptrended to 0.08. EKG with new lateral ST and T wave abnormalities and echocardiogram with an ejection fraction of 30%, segmental WMAs; also notable for diastolic dysfunction and mild-moderate mitral and tricuspid regurgitation. Despite these findings concerning for ACS, he denies and chest pain currently or recently, only GERD symptoms. Denies SOB despite being on a hi-cody nasal cannula. CXR with vascular congestion. He was IV diuresed overnight and fortunately renal function is improving. Given elevated troponin, EKG and echo changes, would like to proceed with cardiac catheterization for ischemic evaluation. Recommend discussing potential for this with renal transplant team. If they do not think patient will tolerate from a renal function standpoint, a nuclear stress test would be the next best option. In the meantime, would medically optimize with initiation of ASA, increasing beta buddy and continued IV diuresis. Agree withIV heparin for ACS and atrial fibrillation. He is already on plavix as an outpatient, presumably for history of CVA. Please continue 75mg daily. - start ASA 81mg daily, plavix 75mg daily, heparin gtt per ACS protocol - continue atorvastatin 40 mg daily - continue metoprolol 12.5mg q6h, uptitrate as tolerated; hold for HR <60 BPM - NPO at midnight; will await final decision making regarding cath vs. Nuclear stress pending inputfrom renal transplant team - IV diuresis Discussed with Dr. Cheung, addendum to follow. Nika Starr MD Risk Officer [phone] Cardiology Staff Addendum Ethel Bolden is a 68 y.o. male whom I saw today with Dr. Starr. I have personally interviewed and examined the patient and reviewed appropriate data, including labs, ECGs, and other diagnosticstudies. I agree with the principal findings documented above, with additions and exceptions as below. The assessment and plan were formulated in discussion with me. #Non-STEMI (mildly elevated by uptrending Bettie, ECG with lateral TWIs, lateral and inferolateral segmental WMAs on TTE) #Atrial fibrillation and flutter, nonvalvular, [id number] 6 #HFrEF/acute systolic HF, new (LVEF 35%), with volume overload -Continue aspirin and Plavix.. -Continue unfractionated heparin for management of ACS/AF. -Would not use more than 40 mg of atorvastatin daily given concurrent tacrolimus use. Would investigate with Transplant whether they prefer an alternative statin (pravstatin and simvastatin have the most data in this setting). -Patient appears to be on maximally tolerated dose of beta blockade currently -Diuresis with IV Lasix; goal net out 1-2 L/day. -Cath versus stress imaging per discussion with Transplant. If the patient's creatinine continues to downtrend, I would favor invasive angiography. -Patient will need long-term anticoagulation for his atrial arrhythmia. Guille Cheung MD, [facility] Cardi[facility] Medicine * ED Triage - Gabriela Marie RN - 01/31/2019 11:09 AM EDT pt with kidney transplant in 2016, not feeling well this morning, hasn't urinated much, spoke to rae GERBER yesterday and told to come to hospital at 0930 today for labs an appointment, no appointment and orders had been arranged. documented in this encounter Plan of Treatment Upcoming Encounters Date Type Department Care Team (Late st Contact Info) Description 04/15/2024 10:00 AM EDT Hospital Encounter [place] [address] Arrived Pending Results Name Type Priority Associated Diagnoses Date /Time EKG 12 Lead ECG STAT Paroxysmal atrial fibrillation 01/31/2019 4:28 PM EDT Scheduled Referrals Name Type Priority Associated Diagnoses Orde r Schedule Referral to Cardiac Rehab Outpatient Referral Routine Non-ST elevation myocardial infarction (NSTEMI) Ordered: 02/05/2019 documented as of this encounter Goals Goal [...] Procedure Name Priority Date/Time Associated Diagnosis Comments BLOOD GAS ARTERIAL POC Routine 9 2:42 AM EDT POCT GLUCOSE Routine 02/05/2019 11:25 AM EDT MAGNESIUM Routine 02/05/2019 7:47 AM EDT POCT GLUCOSE Routine 02/05/2019 6:56 AM EDT POCT GLUCOSE Routine 02/04/2019 7:38 PM EDT BMP W/FASTING GLUCOSE Routine 02/04/2019 7:35 PM EDT POCT GLUCOSE Routine 02/04/2019 4:30 PM EDT POCT GLUCOSE Routine 02/04/2019 11:26 AM EDT POCT GLUCOSE Routine 02/04/2019 7:01 AM EDT HEMOGRAM Routine 02/04/2019 3:40 AM EDT MAGNESIUM Routine 02/04/2019 3:40 AM EDT BASIC METABOLIC PANEL Routine 02/04/2019 3:40 AM EDT POCT GLUCOSE Routine 02/03/2019 8:56 PM EDT HEPARIN (UNFRACTIONATED) LEVEL STAT 02/03/2019 5:07 PM EDT POCT GLUCOSE Routine 02/03/2019 4:40 PM EDT POCT GLUCOSE Routine 02/03/2019 11:41 AM EDT HEPARIN (UNFRACTIONATED) LEVEL STAT 02/03/2019 10:02 AM EDT POCT GLUCOSE Routine 02/03/2019 7:14 AM EDT HEMOGRAM Routine 02/03/2019 6:34 AM EDT MAGNESIUM Routine 02/03/2019 6:34 AM EDT BASIC METABOLIC PANEL Routine 02/03/2019 6:34 AM EDT POCT GLUCOSE Routine 02/02/2019 10:04 PM EDT POCT GLUCOSE Routine 02/02/2019 7:54 PM EDT EKG 12-LEAD Routine 02/02/2019 7:26 PM EDT Paroxysmal atrial fibrillation CARDIAC CATHETERIZATION Routine 02/03/20 6:59 PM EDT POINT OF CARE BLOOD GAS HISTORICAL Routine 02/02/2019 6:15 PM EDT POCT GLUCOSE Routine 02/02/2019 4:16 PM EDT XR CHEST ONE VIEW STAT 02/02/2019 3:3 0 PM EDT BLOOD GAS ARTERIAL POC Routine 9 3:23 PM EDT POCT GLUCOSE Routine 02/02/2019 12:44 PM EDT HEPARIN (UNFRACTIONATED) LEVEL STAT 02/02/2019 12:33 PM EDT POCT GLUCOSE Routine 02/02/2019 11:31 AM EDT POCT GLUCOSE Routine 02/02/2019 8:23 AM EDT HEPARIN (UNFRACTIONATED) LEVEL STAT 02/02/2019 6:12 AM EDT HEMOGRAM Routine 02/02/2019 6:12 AM EDT MAGNESIUM Routine 02/02/2019 6:12 AM EDT BASIC METABOLIC PANEL Routine 02/02/2019 6:12 AM EDT POCT GLUCOSE Routine 02/02/2019 6:10 AM EDT HEPARIN (UNFRACTIONATED) LEVEL STAT 02/01/2019 11:42 PM EDT XR CHEST ONE VIEW STAT 02/01/2019 10: 46 PM EDT POCT GLUCOSE Routine 02/01/2019 8:41 PM EDT POCT GLUCOSE Routine 02/01/2019 5:02 PM EDT HEPARIN (UNFRACTIONATED) LEVEL STAT 02/01/2019 4:50 PM EDT TROPONIN STAT 02/01/2019 4:50 PM EDT MAGNESIUM Routine 02/01/2019 3:04 PM EDT BASIC METABOLIC PANEL Routine 02/01/2019 3:04 PM EDT POCT GLUCOSE Routine 02/01/2019 11:22 AM EDT HEPARIN (UNFRACTIONATED) LEVEL STAT 02/01/2019 10:58 AM EDT ECHO COMPLETE W CONTRAST Routine 02/01/2019 10:38 AM EDT Paroxysmal atrial fibrillation HEMOGRAM STAT 02/01/2019 7:40 AM EDT DIFFERENTIAL, AUTOMATED STAT 02/02/20 19 7:40 AM EDT CBC (WITH DIFF) STAT 02/01/2019 7:40 AM EDT TROPONIN STAT 02/01/2019 7:40 AM EDT POCT GLUCOSE Routine 02/01/2019 6:22 AM EDT BLOOD GAS ARTERIAL POC Routine 9 4:14 AM EDT HEPARIN (UNFRACTIONATED) LEVEL STAT 02/01/2019 3:10 AM EDT HEMOGRAM Routine 02/01/2019 3:10 AM EDT DIFFERENTIAL, AUTOMATED Routine 02/02/20 19 3:10 AM EDT CBC (WITH DIFF) Routine 02/01/2019 3:10 AM EDT BASIC METABOLIC PANEL Routine 02/01/2019 3:10 AM EDT EKG 12-LEAD STAT 02/01/2019 1:00 AM EDT Elevated troponin level TROPONIN STAT 01/31/2019 11:33 PM EDT XR CHEST ONE VIEW Routine 01/31/2019 10: 42 PM EDT POCT GLUCOSE Routine 01/31/2019 8:50 PM EDT HEPARIN (UNFRACTIONATED) LEVEL STAT 01/31/2019 8:36 PM EDT HEMOGRAM STAT 01/31/2019 8:36 PM EDT DIFFERENTIAL, AUTOMATED STAT 02/01/20 19 8:36 PM EDT CBC (WITH DIFF) STAT 01/31/2019 8:36 PM EDT EKG 12-LEAD STAT 01/31/2019 4:28 PM EDT Paroxysmal atrial fibrillation EKG 12-LEAD STAT 01/31/2019 4:28 PM EDT Paroxysmal atrial fibrillation LAVENDER TUBE HOLD STAT 01/31/2019 4: 20 PM EDT TROPONIN STAT 01/31/2019 4:20 PM EDT CK STAT 01/31/2019 4:20 PM EDT BASIC METABOLIC PANEL STAT 01/31/2019 4:20 PM EDT US RENAL TRANSPLANT LEFT STAT 01/31/2019 2:34 PM EDT XR CHEST PA AND LATERAL STAT 02/01/20 19 12:40 PM EDT URINALYSIS MICROSCOPIC EXAM STAT 01/31/2019 11:57 AM EDT HEMOGRAM STAT 01/31/2019 11:57 AM EDT DIFFERENTIAL, AUTOMATED STAT 02/01/20 19 11:57 AM EDT GOLD TUBE HOLD STAT 01/31/2019 11:57 AM EDT BLUE TUBE HOLD STAT 01/31/2019 11:57 AM EDT ELECTROLYTES, URINE, RANDOM STAT 01/31/2019 11:57 AM EDT URINALYSIS WITH REFLEX CULTURE STAT 01/31/2019 11:57 AM EDT CBC (WITH DIFF) STAT 01/31/2019 11:57 AM EDT TROPONIN STAT 01/31/2019 11:57 AM EDT BASIC METABOLIC PANEL STAT 01/31/2019 11:57 AM EDT EKG 12-LEAD STAT 01/31/2019 11:21 AM EDT documented in this encounter Results * (ABNORMAL) BLOOD GAS 2 ARTERIAL (02/07/2019 2:42 AM EDT) pH, Arterial 7.50(H) 7.35 - 7.45 [facility] PCO2, Arterial 33(L) 35 - [address] [facility] PO2, Arterial 77(L) 85 - [address] [facility] Bicarbonate, Arterial 24.7 20.0 - 26.0 mmol/L [facility] Base Excess, Arterial 1.5 -3.0 - 3.0 mmol/L [facility] Hgb Blood Gas 16.3 13.7 - 16.5 gm/dL [facility] Oxyhemoglobin, Arterial 94.9 94.0 - 97.0 % [facility] Carboxyhemoglob in, Arterial 0.7 % [facility] Comment: Nonsmokers: 0.5-1.5% COHB Smokers: Variable, but usually less than 10% Toxic: 20-30% COHB Lethal: Greater than 60% COHB Methemoglobin, Arterial 0.5 <=1.5 % [facility] Na Whole Blood 133(L) 135 - 145 mmol/L [facility] K Whole Blood 4.1 3.5 - 5.0 mmol/L [facility] Comment: Please note: Patients with WBC >100,000 may have falsely elevated Potassium levels. Contact the Clinical Chemistry Laboratory if there are any questions. ICa Whole Blood 1.08(L) 1.15 - 1.33 mmol/L [facility] Comment: Note: ??Total bilirubin higher than 20 mg/dL may lead to falsely low ionized calcium. CL Whole Blood 98 98 - 107 mmol/L [facility] Gluc Whole Bld 138 65 - 199 mg/dL [facility] Comment:Diabetes: >=200 mg/d L plus symptoms. Lactate WB 1.5 0.5 - 2.2 mmol/L [facility] FIO2 Art 50 % [facility] PF Ratio Art 154 [facility] Blood specimen (specimen) 02/07/2019 2:42 AM EDT 02/07/2019 2:42 AM EDT Danny Hicks MD POINT OF CARE TEST O RDERABLES Performing Organization Address [facility] de Phone Number [facility] [place] [place] [address] * POCT Glucose (02/05/2019 11:25 AM EDT) Glucose, POC 163 65 - 199 mg/dL [facility] Comment: Supplemental ranges: <140 mg/dL before meals <180 mg/dL all other times of the day Blood specimen (specimen) 02/05/2019 11:25 AM EDT 02/05/2019 11:25 AM EDT Alessandro Limon DO POINT OF CARE TEST O RDERABLES Performing Organization Address [facility] de Phone Number [facility] [place] [address] * (ABNORMAL) Magnesium (02/05/2019 7:47 AM EDT) Magnesium 0.67(L) 0.69 - 1.07 mmol/L [facility] Blood specimen (specimen) 02/05/2019 7:47 AM EDT 02/05/2019 8:13 AM EDT Narrative Resulting Agency Comment Spec In Lab Alessandro Limon DO CHEMISTRY ORDERABLES Performing Organization Address [facility] Co de Phone Number [facility] [place] [place] [address] * POCT Glucose (02/05/2019 6:56 AM EDT) Glucose, POC 110 65 - 199 mg/dL [facility] Comment: Supplemental ranges: <140 mg/dL before meals <180 mg/dL all other times of the day Blood specimen (specimen) 02/05/2019 6:56 AM EDT 02/05/2019 6:56 AM EDT Alessandro Limon DO POINT OF CARE TEST O RDERABLES Performing Organization Address [facility] de Phone Number [facility] [place] [address] * POCT Glucose (02/04/2019 7:38 PM EDT) Glucose, POC 102 65 - 199 mg/dL [facility] Comment: Supplemental ranges: <140 mg/dL before meals <180 mg/dL all other times of the day Blood specimen (specimen) 02/04/2019 7:38 PM EDT 02/04/2019 7:38 PM EDT Alessandro Limon DO POINT OF CARE TEST O RDERABLES Performing Organization Address [facility] Co de Phone Number [facility] [place] [address] * (ABNORMAL) BMP w/fasting Glucose (02/04/2019 7:35 PM EDT) Glucose Fasting 107(H) 65 - 99 mg/dL [facility] Comment: ?Fasting* Glucose Interpretive Criteria [...] of Diabetes Mellitus, Position Statement from the [place] [employer]. ??Diabetes Care, Volume 33, Supplement 1, Jul 2009 Blood Urea Nitrogen 20 10 - 20 mg/dL [facility] Creatinine 1.43 0.80 - 1.50 mg/dL [facility] Sodium 142 135 - 145 mmol/L [facility] Potassium 3.4(L) 3.5 - 5.0 mmol/L [facility] Comment: Please note: ??Patients with WBC >100,000 may have falsely elevated Potassium levels. ??For accurate Potassium quantification in these patients send serum separator tube (gold top) for subsequent determinations. ??Contact the Clinical Chemistry Laboratory if there are any questions. Chloride 98 98 - 107 mmol/L [facility] Carbon Dioxide 31 22 - 31 mmol/L [facility] Anion Gap 13 5 - 15 mmol/L [facility] Calcium 9.2 8.5 - 10.5 mg/dL [facility] Est Glomerular Filtration Rate 49(L) >=60 mL/min/1. 73 m?? [facility] Comment: The eGFR was calculated using the CKD-EPI equation. As with all creatinine based estimates of kidney function, eGFR values calculated with the CKD-EPI equation are not accurate in patients with acute kidney failure, extremes of body mass or the acutely ill. [email or web address] eGFR 57(L) >=60 mL/min/1. 73 m?? [facility] Comment: The eGFR was calculated using the CKD-EPI equation. As with all creatinine based estimates of kidney function, eGFR values calculated with the CKD-EPI equation are not accurate in patients with acute kidney failure, extremes of body mass or the acutely ill. [email or web address] Blood specimen (specimen) 02/04/2019 7:35 PM EDT 02/04/2019 7:40 PM EDT Narrative Resulting Agency Comment Spec In Lab Patricia Lozano APRN CHEMISTRY ORDERAB LES Performing Organization Address [facility] Co de Phone Number [facility]. [place] [address] * POCT Glucose (02/04/2019 4:30 PM EDT) Glucose, POC 143 65 - 199 mg/dL [facility] Comment: Supplemental ranges: <140 mg/dL before meals <180 mg/dL all other times of the day Blood specimen (specimen) 02/04/2019 4:30 PM EDT 02/04/2019 4:30 PM EDT Alessandro Limon DO POINT OF CARE TEST O RDERABLES Performing Organization Address [facility] Co de Phone Number [facility] [place] [address] * POCT Glucose (02/04/2019 11:26 AM EDT) Glucose, POC 141 65 - 199 mg/dL [facility] Comment: Supplemental ranges: <140 mg/dL before meals <180 mg/dL all other times of the day Blood specimen (specimen) 02/04/2019 11:26 AM EDT 02/04/2019 11:26 AM EDT Alessandro Limon DO POINT OF CARE TEST O RDERABLES Performing Organization Address [facility] Co de Phone Number [facility] [place] [address] * POCT Glucose (02/04/2019 7:01 AM EDT) Glucose, POC 152 65 - 199 mg/dL [facility] Comment: Supplemental ranges: <140 mg/dL before meals <180 mg/dL all other times of the day Blood specimen (specimen) 02/04/2019 7:01 AM EDT 02/04/2019 7:01 AM EDT Alessandro Limon DO POINT OF CARE TEST O RDERABLES Performing Organization Address City/[facility]/ZIP Co de Phone Number [facility] [place] [address] * Magnesium (02/04/2019 3:40 AM EDT) [facility] Magnesium 0.69 0.69 - 1.07 mmol/L [facility] Blood specimen (specimen) Venous Draw / Unknown 02/04/2019 3:40 AM EDT 02/04/2019 3:49 AM EDT Narrative Resulting Agency Comment Spec In Lab Alessandro Limon DO CHEMISTRY ORDERABLES Performing Organization Address [facility] Co de Phone Number [facility] [place] [address] * (ABNORMAL) Basic Metabolic Panel (non-fasting) (02/04/2019 3:40 AM EDT) [facility] Glucose 126 65 - 199 mg/dL [facility] Comment:Diabetes: >=200 mg/d L plus symptoms Blood Urea Nitrogen 21(H) 10 - 20 mg/dL [facility] Creatinine 1.56(H) 0.80 - 1.50 mg/dL [facility] Sodium 139 135 - 145 mmol/L [facility] Potassium 3.8 3.5 - 5.0 mmol/L [facility] Comment: Please note: ??Patients with WBC >100,000 may have falsely elevated Potassium levels. ??For accurate Potassium quantification in these patients send serum separator tube (gold top) for subsequent determinations. ??Contact the Clinical Chemistry Laboratory if there are any questions. Chloride 98 98 - 107 mmol/L [facility] Carbon Dioxide 28 22 - 31 mmol/L [facility] Anion Gap 13 5 - 15 mmol/L [facility] Calcium 8.7 8.5 - 10.5 mg/dL [facility] Est Glomerular Filtration Rate 44(L) >=60 mL/min/1. 73 m?? [facility] Comment: The eGFR was calculated using the CKD-EPI equation. As with all creatinine based estimates of kidney function, eGFR values calculated with the CKD-EPI equation are not accurate in patients with acute kidney failure, extremes of body mass or the acutely ill. http://Celect/[facility] eGFR 51(L) >=60 mL/min/1. 73 m?? [facility] Comment: The eGFR was calculated using the CKD-EPI equation. As with all creatinine based estimates of kidney function, eGFR values calculated with the CKD-EPI equation are not accurate in patients with acute kidney failure, extremes of body mass or the acutely ill. [email or web address] Blood specimen (specimen) 02/04/2019 3:40 AM EDT 02/04/2019 3:49 AM EDT Narrative Resulting Agency Comment Spec In Lab Alessandro Limon DO CHEMISTRY ORDERABLES Performing Organization Address City/State/[facility] Co de Phone Number [facility] [place] [address] * (ABNORMAL) Hemogram (02/04/2019 3:40 AM EDT) White Blood Cell 9.8(H) 4.0 - 9.5 x10(3)/mc L [facility] Red Blood Cell 4.59 4.58 - 5.54 x10(6)/mc L [facility] Hemoglobin 14.1 13.7 - 16.5 gm/dL [facility] Hematocrit 41.9 40.5 - 48.5 % [facility] Mean Cell Volume 91.3 82.9 - 93.[address] [facility] Mean Cell Hemoglobin 30.7 27.5 - 32.[address] [facility] Mean Cell Hemoglobin Concentration 33.7 32.0 - 35.7 gm/dL [facility] Platelet 247 145 - 357 x10(3)/mc L [facility] RDW Standard Deviation 45.1(H) 36.0 - 45.0 fL [facility] RDW coefficient of variation 13.8 11.4 - 13.8 % [facility] Mean Platelet Volume 9.5 7.6 - 12.9 [facility] NRBC% auto 0.0 % [facility] NRBC Absolute 0.000 0.000 - 0.000 x10(3)/mc L [facility] Blood specimen (specimen) 02/04/2019 3:40 AM EDT 02/04/2019 3:49 AM EDT Narrative Resulting Agency Comment Spec In Lab Alessandro Limon DO HEMATOLOGY ORDERABLE S Performing Organization Address [facility] Co de Phone Number [facility] [place] [address] * POCT Glucose (02/03/2019 8:56 PM EDT) Glucose, POC 117 65 - 199 mg/dL [facility] Comment: Supplemental ranges: <140 mg/dL before meals <180 mg/dL all other times of the day Blood specimen (specimen) 02/03/2019 8:56 PM EDT 02/03/2019 8:56 PM EDT Alessandro Limon DO POINT OF CARE TEST O RDERABLES Performing Organization Address [facility] Co de Phone Number [facility] [place] [address] * Heparin (unfractionated) Level (02/03/2019 5:07 PM EDT) UF Heparin 0.31 IU/mL [facility] Comment: Guidelines for therapeutic unfractionated heparin levels are summarized below. Heparin (Anti-Xa) levels should be determined in a plasma sample that has been drawn 6 hours after a dose change i.e., steady-state has been reached. DRUG ?Dosing Schedule ? Target Peak Steady-State ?Heparin (Anti-Xa) Levels (Units/mL) Unfractionated ?Continuous infusion ?0.3-0.7 Heparin ?0.3-0.6 for some neurology indications Blood specimen (specimen) 02/03/2019 5:07 PM EDT 02/03/2019 5:20 PM EDT Narrative Resulting Agency Comment Spec In Lab Anabel Duncan MD HEMATOLOGY ORDERABLE S Performing Organization Address [facility] Co de Phone Number [facility] [place] [address] * POCT Glucose (02/03/2019 4:40 PM EDT) Glucose, POC 160 65 - 199 mg/dL [facility] Comment: Supplemental ranges: <140 mg/dL before meals <180 mg/dL all other times of the day Blood specimen (specimen) 02/03/2019 4:40 PM EDT 02/03/2019 4:40 PM EDT Alessandro Limon DO POINT OF CARE TEST O RDERABLES Performing Organization Address [facility] Co de Phone Number [facility] [place] [address] * POCT Glucose (02/03/2019 11:41 AM EDT) Glucose, POC 169 65 - 199 mg/dL [facility] Comment: Supplemental ranges: <140 mg/dL before meals <180 mg/dL all other times of the day Blood specimen (specimen) 02/03/2019 11:41 AM EDT 02/03/2019 11:41 AM EDT Alessandro Limon DO POINT OF CARE TEST O RDERABLES Performing Organization Address [facility] de Phone Number [facility] [place] [address] * Heparin (unfractionated) Level (02/03/2019 10:02 AM EDT) UF Heparin 0.33 IU/mL [facility] Comment: Guidelines for therapeutic unfractionated heparin levels are summarized below. Heparin (Anti-Xa) levels should be determined in a plasma sample that has been drawn 6 hours after a dose change i.e., steady-state has been reached. DRUG ?Dosing Schedule ? Target Peak Steady-State ?Heparin (Anti-Xa) Levels (Units/mL) Unfractionated ?Continuous infusion ?0.3-0.7 Heparin ?0.3-0.6 for some neurology indications Blood specimen (specimen) 02/03/2019 10:02 AM EDT 02/03/2019 10:32 AM EDT Narrative Resulting Agency Comment Spec In Lab Alessandro Limon DO HEMATOLOGY ORDERABLE S Performing Organization Address [facility] de Phone Number [facility] [place] [address] * POCT Glucose (02/03/2019 7:14 AM EDT) Pathologist [facility] Glucose, POC 118 65 - 199 mg/dL [facility] Comment: Supplemental ranges: <140 mg/dL before meals <180 mg/dL all other times of the day Blood specimen (specimen) 02/03/2019 7:14 AM EDT 02/03/2019 7:14 AM EDT Alessandro Limon DO POINT OF CARE TEST O RDERABLES Performing Organization Address City/[facility]/ZIP Co de Phone Number [facility] [place] [address] * Magnesium (02/03/2019 6:34 AM EDT) Pathologist [facility] Magnesium 0.71 0.69 - 1.07 mmol/L [facility] Blood specimen (specimen) 02/03/2019 6:34 AM EDT 02/03/2019 6:41 AM EDT Narrative Resulting Agency Comment Spec In Lab Alessandro Limon DO CHEMISTRY ORDERABLES Performing Organization Address [facility] Co de Phone Number [facility] [place] [address] * (ABNORMAL) Basic Metabolic Panel (non-fasting) (02/03/2019 6:34 AM EDT) Pathologist [facility] Glucose 115 65 - 199 mg/dL [facility] Comment:Diabetes: >=200 mg/d L plus symptoms Blood Urea Nitrogen 22(H) 10 - 20 mg/dL [facility] Creatinine 1.44 0.80 - 1.50 mg/dL [facility] Sodium 137 135 - 145 mmol/L [facility] Potassium 3.4(L) 3.5 - 5.0 mmol/L [facility] Comment: Please note: ??Patients with WBC >100,000 may have falsely elevated Potassium levels. ??For accurate Potassium quantification in these patients send serum separator tube (gold top) for subsequent determinations. ??Contact the Clinical Chemistry Laboratory if there are any questions. Chloride 101 98 - 107 mmol/L [facility] Carbon Dioxide 26 22 - 31 mmol/L [facility] Anion Gap 10 5 - 15 mmol/L [facility] Calcium 8.4(L) 8.5 - 10.5 mg/dL [facility] Est Glomerular Filtration Rate 49(L) >=60 mL/min/1. 73 m?? [facility] Comment: The eGFR was calculated using the CKD-EPI equation. As with all creatinine based estimates of kidney function, eGFR values calculated with the CKD-EPI equation are not accurate in patients with acute kidney failure, extremes of body mass or the acutely ill. http://Celect/[facility] eGFR 57(L) >=60 mL/min/1. 73 m?? [facility] Comment: The eGFR was calculated using the CKD-EPI equation. As with all creatinine based estimates of kidney function, eGFR values calculated with the CKD-EPI equation are not accurate in patients with acute kidney failure, extremes of body mass or the acutely ill. http://Celect/[facility] Blood specimen (specimen) 02/03/2019 6:34 AM EDT 02/03/2019 6:41 AM EDT Narrative Resulting Agency Comment Spec In Lab Alessandro Limon DO CHEMISTRY ORDERABLES Performing Organization Address City/State/[facility] Co de Phone Number [facility] [place] [address] * (ABNORMAL) Hemogram (02/03/2019 6:34 AM EDT) White Blood Cell 8.9 4.0 - 9.5 x10(3)/mc L [facility] Red Blood Cell 4.05(L) 4.58 - 5.54 x10(6)/mc L [facility] Hemoglobin 12.8(L) 13.7 - 16.5 gm/dL [facility] Hematocrit 38.0(L) 40.5 - 48.5 % [facility] Mean Cell Volume 93.8(H) 82.9 - 93.[address] [facility] Mean Cell Hemoglobin 31.6 27.5 - 32.[address] [facility] Mean Cell Hemoglobin Concentration 33.7 32.0 - 35.7 gm/dL [facility] Platelet 200 145 - 357 x10(3)/mc L [facility] RDW Standard Deviation 46.7(H) 36.0 - 45.[address] [facility] RDW coefficient of variation 13.8 11.4 - 13.8 % [facility] Mean Platelet Volume 9.6 7.6 - 12.[address] [facility] NRBC% auto 0.0 % [facility] NRBC Absolute 0.000 0.000 - 0.000 x10(3)/mc L [facility] Blood specimen (specimen) 02/03/2019 6:34 AM EDT 02/03/2019 6:41 AM EDT Narrative Resulting Agency Comment Spec In Lab Alessandro Limon DO HEMATOLOGY ORDERABLE S Performing Organization Address [facility] Co de Phone Number [facility] [place] [address] * POCT Glucose (02/02/2019 10:04 PM EDT) Glucose, POC 188 65 - 199 mg/dL [facility] Comment: Supplemental ranges: <140 mg/dL before meals <180 mg/dL all other times of the day Blood specimen (specimen) 02/02/2019 10:04 PM EDT 02/02/2019 10:04 PM EDT Alessandro Limon DO POINT OF CARE TEST O RDERABLES Performing Organization Address [facility] Co de Phone Number [facility] [place] [address] * POCT Glucose (02/02/2019 7:54 PM EDT) Glucose, POC 101 65 - 199 mg/dL [facility] Comment: Supplemental ranges: <140 mg/dL before meals <180 mg/dL all other times of the day Blood specimen (specimen) 02/02/2019 7:54 PM EDT 02/02/2019 7:54 PM EDT Alessandro Limon DO POINT OF CARE TEST O RDERABLES Performing Organization Address City/[facility] Co de Phone Number [facility] [place] [address] * EKG 12 Lead (02/02/2019 7:26 PM EDT) Ventricular rate 65 BPM MUSE SYSTEM Atrial Rate 65 BPM MUSE SYSTEM P-R Interval 192 ms MUSE SYSTEM QRS Duration 116 ms MUSE SYSTEM Q-T Interval 440 ms MUSE SYSTEM QTC Calculated (Bezet) 457 ms MUSE SYSTEM Calculated P [place] 48 degrees MUSE SYSTEM Calculated R [place] -59 degrees MUSE SYSTEM Calculated T [place] 15 degrees MUSE SYSTEM INTERPRETATION Sinus rhythm with Premature atrial complexes Left anterior fascicular block Abnormal ECG When compared with ECG of 01-FEB-2019 01:00, T wave inversion no longer evident in Anterolateral leads Confirmed by MD Phillip Daniel ([id number]) on 02/03/2019 3:52:55 PM MUSE SYSTEM 02/02/2019 7:26 PM EDT 02/03/2019 3:52 PM EDT Alessandro Limon DO ECG ORDERABLES Performing Organization Address [facility] Co de Phone Number MUSE SYSTEM * CARDIAC CATHETERIZATION (02/02/2019 6:59 PM EDT) Anatomical Region Laterality Modality Other Narrative 02/03/2019 1:49 AM EDT ?[facility] ? Cardiac Catheterization/Intervention Report ? Patient Name: Ethel Bolden Patricia. ? Procedure Date: 02/02/2019 ? A #: [id number] ? Primary Physician: Toro, Bobby Flor ? Case #: [id number] ? File Name: [id number] ? Catheterization Order Number: [id number] ? [facility] ? Final Report [place], [place] ? Patient Name: ? Ethel P. Tubiello ? ID#: ?[id number] ? : ?1950 ? Procedure Date: ? February 02, 2019 ?Case #: ? [id number] ? Room: ? 2 ? Case Physician: ? Bobby Engel M.D. ?Start: ?18:00 ?Fellow: ? Yeimi Whittaker M.D. ? Admission: ??01/31/2019 ? Discharge: ??02/05/2019 ? Referring Physician: ??Urbano Denis M.D. ? Procedures: ?* Coronary Angiography ?* Left Heart Catheterization ?* Coronary Stent Insertion ?* Arterial Blood Gases ? History ?Ethel Bolden is a 68 year old man. He has hypertension. The ?patient's smoking status is Never. He has hypercholesterolemia. The ?patient has diabetes managed by oral medication and insulin. He is status ?post an acute non-ST elevation myocardial infarction. The patient has a ?cerebral vascular accident and a history of transient ischemic attacks. ?He also has a history of chronic obstructive pulmonary disease. Prior to ?the initiation of this procedure, the patient was designated as ASA Class ?III. The [facility] clinical frailty scale is 6: Moderately Frail. ? Diagnostic Tests: ?Prior Coronary Angiography: ? LV ejection fraction within 6 months is 55%. ?Electrocardiography: ? EKG was assessed by ECG. EKG was Abnormal. EKG showed T-wave ? inversions. ?Medications Prior to Procedure: ? ASA and Statin. ? Indications for Diagnostic Cath: ?The priority of the diagnostic procedure was Urgent. The indication for ?the molder labels visit is ACS less than or equal to 24 hrs. Chest pain ?symptom assessment was: Typical Angina. ? Technique: ?A 6 SLFr sheath was inserted in the right radial artery utilizing the ?Seldinger technique. The left coronary artery was injected utilizing a ?5Fr LUCHO RADIAL catheter. A 5Fr LUCHO RADIAL catheter was used to inject ?the right coronary artery. Left ventricular pressure was performed with a ?5Fr LUCHO RADIAL catheter. Coronary stent insertion was performed and the ?equipment utilized will be described in the intervention summary section. ?A total of 100cc of Omnipaque were opened, 35cc of Omnipaque were ?administered and 65cc of Omnipaque were wasted. Radiation: Fluoro time ?was 10.1 minutes, dose area product was 149,885 mGYcm2 and air kerma was ?2,725 mGY. See the case log for additional details. ?The patient received the following medications prior to and during the ?procedure: ? Unfractionated Heparin and Clopidogrel. ? Hemodynamics: ?Left Heart Pressures ? Resting: ? Syst Diast ? EDP ?a ?v ? m ?Ao 140 ?? 68 ?97 ?LV 139 ? 26 ? Coronary Angiography: ?Dominance: Right ?Left Main ? There was mild diffuse (<=25% stenosis) disease of the entire vessel ? segment of the left main artery. ?Left Anterior Descending ? There was mild diffuse (<=25% stenosis) disease of the entire vessel ? segment of the left anterior descending artery (LAD). ?Left Circumflex ? There was mild diffuse (<=25% stenosis) disease of the entire vessel ? segment of the left circumflex artery (LCX). ? There was a 95% single discrete stenosis of the ostial segment of ? the first obtuse marginal branch (OM1) of the LCX. ?Right Coronary Artery ? There was mild diffuse (<=25% stenosis) disease of the entire vessel ? segment of the right coronary artery (RCA). ? Very large vessel. ?[place] ? Indication for Intervention: ?Coronary intervention was indicated for primary therapy for an acute ?myocardial infarction. The priority for the procedure was Urgent. The ?NCDR indication for the procedure was NSTE-ACS. LVEF within one week was ?55%. ? Intervention Summary: ?First Obtuse Marginal Branch of the LCX ? Ostial 95% ? Stent insertion was performed on the 95% stenosis in the ? ostial segment of the OM1. This was a de jaskaran lesion. ? According to the ACC/AHA classification system, this lesion ? was a type B2 moderate risk lesion. Primary prevention of ? restenosis was the indication for stent insertion. This was ? the culprit lesion. A guidewire was placed across this lesion. ? Vessel flow pre intervention was FOX 3. Lesion length was ? 8mm. ? Stent insertion was accomplished through a 6 Fr. EBU 4.0 ? guide. ??The lesion was predilated with a 2.00mm EUPHORA 12 MM ? balloon with a maximum inflation pressure of 14 atmospheres. ? A premounted 2.50 x 12 mm Resolute FELY (CUATE) was deployed ? with a maximum inflation pressure of 18 atmospheres. ? The final outcome was defined as successful. There was no ? residual stenosis following this intervention. The final FOX ? flow was 3. ? Vascular Access: ?Vascular Access Management: ? Mechanical Compression of the right radial artery access site was ? performed. ? Point of Care Testing: ?ABG: ? Arterial Blood gasses were performed using the I-Stat analyzer at ? 18:15: pH: 7.48, pCO2: 33.3, pO2: 51.0, sPO2: 89%, HCO3: 24 on FIO2: ? 100. ?I-Stat: ? I-Stat was performed using the I-Stat analyzer at 18:15: Na+: 140, ? K+: 3.5, iCa++: 1.15, Hct: 41%, Hb: 13.9. ? Dual Antiplatelet (DAPT) Recommendations: ?Drug eluting stent (CUATE) inserted. ?Patient was on chronic DAPT on arrival to the molder labels. ?Recommend continuing clopidogrel 75 mg PO daily for 12 months. ??Recommend ?continuing aspirin 81 mg unless intolerant. ?The DAPT score is 2. ??The DAPT score calculates net clinical benefit of ?prolonged dual antiplatelet therapy following percutaneous coronary ?intervention. A DAPT Score of equal or greater than 2 suggests an ?increased risk of late stent thrombosis and MACCE. If the DAPT score is ?equal or greater than 2 and the patient tolerates the recommended ?duration of DAPT without bleeding or side effects, consider extending the ?DAPT to 30 months post procedure. ? Conclusions: ?* One vessel coronary artery disease (LCX) ?* Elevated left ventricular end diastolic pressure ?* Successful stent insertion of the ostial OM1 lesion ?* Recommend continuing clopidogrel 75 mg PO daily for 12 months (see DAPT ?Recommendations above for more information.) ? Complications/Events: ?The patient had no complications during these procedures. ?The attending physician was present for the entire procedure. ?Dr. Bobby Engel M.D. was present during the moderate sedation ?intraservice time as documented by the sedation nurse. ??Case time = 00:55. ?Dr. Bobby Engel M.D. performed the coronary angiography, left heart ?catheterization, stent insertion-coronary and ABG. ? Bobby Engel M.D. ? Electronically Signed by: Bobby Engel M.D. ? Report Finalized: 02/03/2019 ??01:42 ? Report Last Ammended: 06/25/2019 ??16:39 ? Procedure Note Bobby Engel MD - 06/25/2019 [facility] Cardiac Catheterization/Intervention Report Patient Name: Ethel Bolden Procedure Date: 02/02/2019 A #: [id number] Primary Physician: Bobby Engel Case #: [id number] File Name: [id number] Catheterization Order Number: [id number] [facility] FinalReport [place], [place] Patient Name: Ethel Bolden ID#:[id number] :1950 Procedure Date: February 02, 2019 Case #: [id number] Room: 2 Case Physician: Bobby Engel M.D. Start: 18:00 Fellow: Yeimi Whittaker M.D. Admission:01/31/2019 Discharge:02/05/2019 Referring Physician: Urbano Denis M.D. Procedures: * Coronary Angiography * Left Heart Catheterization * Coronary Stent Insertion * Arterial Blood Gases History Ethel Bolden is a 68 year old man. He has hypertension. The patient's smoking status is Never. He has hypercholesterolemia. The patient has diabetes managed by oral medication and insulin. He isstatus post an acute non-ST elevation myocardial infarction. The patienthas a cerebral vascular accident and a history of transient ischemicattacks. He also has a history of chronic obstructive pulmonary disease.Prior to the initiation of this procedure, the patient was designated as ASAClass III. The [facility] clinical frailty scale is 6: Moderately Frail. Diagnostic Tests: Prior Coronary Angiography: LV ejection fraction within 6 months is 55%. Electrocardiography: EKG was assessed by ECG. EKG was Abnormal. EKG showed T-wave inversions. Medications Prior to Procedure: ASA and Statin. Indications for Diagnostic Cath: The priority of the diagnostic procedure was Urgent. The indicationfor the molder labels visit is ACS less than or equal to 24 hrs. Chest pain symptom assessment was: Typical Angina. Technique: A 6 SLFr sheath was inserted in the right radial artery utilizingthe Seldinger technique. The left coronary artery was injected utilizinga 5Fr LUCHO RADIAL catheter. A 5Fr LUCHO RADIAL catheter was used toinject the right coronary artery. Left ventricular pressure was performedwith a 5Fr LUCHO RADIAL catheter. Coronary stent insertion was performedand the equipment utilized will be described in the intervention summarysection. A total of 100cc of Omnipaque were opened, 35cc of Omnipaque were administered and 65cc of Omnipaque were wasted. Radiation: Fluorotime was 10.1 minutes, dose area product was 149,885 mGYcm2 and air kermawas 2,725 mGY. See the case log for additional details. The patient received the following medications prior to and duringthe procedure: Unfractionated Heparin and Clopidogrel. Hemodynamics: Left Heart Pressures Resting: Syst Diast EDP a v m Ao 140 68 97 LV 139 26 Coronary Angiography: Dominance: Right Left Main There was mild diffuse (<=25% stenosis) disease of the entirevessel segment of the left main artery. Left Anterior Descending There was mild diffuse (<=25% stenosis) disease of the entirevessel segment of the left anterior descending artery (LAD). Left Circumflex There was mild diffuse (<=25% stenosis) disease of the entirevessel segment of the left circumflex artery (LCX). There was a 95% single discrete stenosis of the ostial segmentof the first obtuse marginal branch (OM1) of the LCX. Right Coronary Artery There was mild diffuse (<=25% stenosis) disease of the entirevessel segment of the right coronary artery (RCA). Very large vessel. Ramus Indication for Intervention: Coronary intervention was indicated for primary therapy for an acute myocardial infarction. The priority for the procedure was Urgent.The NCDR indication for the procedure was NSTE-ACS. LVEF within one weekwas 55%. Intervention Summary: First Obtuse Marginal Branch of the LCX Ostial 95% Stent insertion was performed on the 95% stenosis in the ostial segment of the OM1. This was a de jaskaran lesion. According to the ACC/AHA classification system, thislesion was a type B2 moderate risk lesion. Primary prevention of restenosis was the indication for stent insertion. Thiswas the culprit lesion. A guidewire was placed across thislesion. Vessel flow pre intervention was FOX 3. Lesion lengthwas 8mm. Stent insertion was accomplished through a 6 Fr. EBU 4.0 guide. The lesion was predilated with a 2.00mm HBYUSOL50 MM balloon with a maximum inflation pressure of 14atmospheres. A premounted 2.50 x 12 mm Resolute FELY (CUATE) wasdeployed with a maximum inflation pressure of 18 atmospheres. The final outcome was defined as successful. There was no residual stenosis following this intervention. The finalTIMI flow was 3. Vascular Access: Vascular Access Management: Mechanical Compression of the right radial artery access sitewas performed. Point of Care Testing: ABG: Arterial Blood gasses were performed using the I-Stat analyzerat 18:15: pH: 7.48, pCO2: 33.3, pO2: 51.0, sPO2: 89%, HCO3: 24 onFIO2: 100. I-Stat: I-Stat was performed using the I-Stat analyzer at 18:15: Na+:140, K+: 3.5, iCa++: 1.15, Hct: 41%, Hb: 13.9. Dual Antiplatelet (DAPT) Recommendations: Drug eluting stent (CUATE) inserted. Patient was on chronic DAPT on arrival to the molder labels. Recommend continuing clopidogrel 75 mg PO daily for 12 months.Recommend continuing aspirin 81 mg unless intolerant. The DAPT score is 2. The DAPT score calculates net clinical benefitof prolonged dual antiplatelet therapy following percutaneous coronary intervention. A DAPT Score of equal or greater than 2 suggests an increased risk of late stent thrombosis and MACCE. If the DAPT scoreis equal or greater than 2 and the patient tolerates the recommended duration of DAPT without bleeding or side effects, considerextending the DAPT to 30 months post procedure. Conclusions: * One vessel coronary artery disease (LCX) * Elevated left ventricular end diastolic pressure * Successful stent insertion of the ostial OM1 lesion * Recommend continuing clopidogrel 75 mg PO daily for 12 months (seeDAPT Recommendations above for more information.) Complications/Events: The patient had no complications during these procedures. The attending physician was present for the entire procedure. Dr. Bobby Engel M.D. was present during the moderate sedation intraservice time as documented by the sedation nurse. Case time =00:55. Dr. Bobby Engel M.D. performed the coronary angiography, leftheart catheterization, stent insertion-coronary and ABG. Bobby Engel M.D. Electronically Signed by: Bobby Engel M.D. Report Finalized: 02/03/2019 01:42 Report Last Ammended: 06/25/2019 16:39 Bobby Engel MD CARDIAC CATH ORDERAB LES * (ABNORMAL) Point of Care Blood Gas Historical (02/02/2019 6:15 PM EDT) pH, POC 7.48(H) 7.35 - 7.45 [facility] pCO2, POC 33(L) 35 - [address] [facility] pO2, POC 51(L) 85 - [address] [facility] Base Excess, POC 1.0 -3.0 - 3.0 mmol/L [facility] Bicarbonate, POC 24.9 20.0 - 26.0 mmol/L [facility] Sodium, POC 140 135 - 145 mmol/L [facility] POC Potassium 3.5 3.5 - 5.0 mmol/L [facility] Ionized Calcium, POC 1.15 1.15 - 1.33 mmol/L [facility] POC Hematocrit 41.0 40.0 - 51.0 % [facility] POC Calc Hgb 13.9 13.7 - 17.5 gm/dL [facility] Comment:The calculation of h emoglobin from hematocrit assumes a normal MCHC. POC Bgas Loc CC LAB [facility] Blood specimen (specimen) 02/02/2019 6:15 PM EDT 02/04/2019 1:23 PM EDT Alessandro Limon DO CHEMISTRY ORDERABLES Performing Organization Address [facility] Co de Phone Number [facility] [place] [address] * POCT Glucose (02/02/2019 4:16 PM EDT) Glucose, POC 114 65 - 199 mg/dL [facility] Comment: Supplemental ranges: <140 mg/dL before meals <180 mg/dL all other times of the day Blood specimen (specimen) 02/02/2019 4:16 PM EDT 02/02/2019 4:16 PM EDT Alessandro Limon DO POINT OF CARE TEST O RDERABLES Performing Organization Address [facility]/ZIP Co de Phone Number [facility] [place] [address] * XR Chest One View (02/02/2019 3:30 PM EDT) Anatomical Region Laterality Modality Chest N/A Digital Radiogra phy Impressions 02/02/2019 4:11 PM EDT No interval change. Mild pulmonary edema Thank you for letting us participate in the care of this patient. For questions regarding this report, please contact the number below. ? Narrative 02/02/2019 4:11 PM EDT EXAMINATION: XR CHEST ONE VIEW CLINICAL HISTORY: Hypoxia after cardiac catheterization. TECHNIQUE: Portable AP semiupright chest COMPARISON: 02/01/2019 FINDINGS: There is no interval change. Again noted are low lung volumes and diffuse vascular blurring likely due to mild pulmonary edema and atelectasis. Procedure Note Edinson Woo MD - 02/02/2019 EXAMINATION: XR CHEST ONE VIEW CLINICAL HISTORY: Hypoxia after cardiac catheterization. TECHNIQUE: Portable AP semiupright chest COMPARISON: 02/01/2019 FINDINGS: There is no interval change. Again noted are low lung volumes anddiffuse vascular blurring likely due to mild pulmonary edema and atelectasis. IMPRESSION No interval change. Mild pulmonary edema Thank you for letting us participate in the care of this patient. Forquestions regarding this report, please contact the number below. Alessandro Limon DO IMG DX ORDERABLES * (ABNORMAL) BLOOD GAS 2 ARTERIAL (02/02/2019 3:23 PM EDT) pH, Arterial 7.46(H) 7.35 - 7.45 [facility] PCO2, Arterial 32(L) 35 - [address] [facility] PO2, Arterial 103 85 - [address] [facility] Bicarbonate, Arterial 22.2 20.0 - 26.0 mmol/L [facility] Base Excess, Arterial -1.5 -3.0 - 3.0 mmol/L [facility] Hgb Blood Gas 14.9 13.7 - 16.5 gm/dL [facility] Oxyhemoglobin, Arterial 97.1(H) 94.0 - 97.0 % [facility] Carboxyhemoglob in, Arterial 0.5 % [facility] Comment: Nonsmokers: 0.5-1.5% COHB Smokers: Variable, but usually less than 10% Toxic: 20-30% COHB Lethal: Greater than 60% COHB Methemoglobin, Arterial 0.3 <=1.5 % [facility] Na Whole Blood 134(L) 135 - 145 mmol/L [facility] K Whole Blood 3.8 3.5 - 5.0 mmol/L [facility] Comment: Please note: Patients with WBC >100,000 may have falsely elevated Potassium levels. Contact the Clinical Chemistry Laboratory if there are any questions. ICa Whole Blood 1.16 1.15 - 1.33 mmol/L [facility] Comment: Note: ??Total bilirubin higher than 20 mg/dL may lead to falsely low ionized calcium. CL Whole Blood 102 98 - 107 mmol/L [facility] Gluc Whole Bld 123 65 - 199 mg/dL [facility] Comment:Diabetes: >=200 mg/d L plus symptoms. Lactate WB 1.3 0.5 - 2.2 mmol/L [facility] FIO2 Art 70 % [facility] PF Ratio Art 147 [facility] Blood specimen (specimen) 02/02/2019 3:23 PM EDT 02/02/2019 3:23 PM EDT Alessandro Limon DO POINT OF CARE TEST O RDERABLES [facility] [address] * POCT Glucose (02/02/2019 12:44 PM EDT) Glucose, POC 129 65 - 199 mg/dL [facility] Comment: Supplemental ranges: <140 mg/dL before meals <180 mg/dL all other times of the day Blood specimen (specimen) 02/02/2019 12:44 PM EDT 02/02/2019 12:44 PM EDT Alessandro Limon DO POINT OF CARE TEST O RDERABLES Performing Organization Address [facility] Co de Phone Number [facility] [place] [address] * Heparin (unfractionated) Level (02/02/2019 12:33 PM EDT) [facility] UF Heparin 0.29 IU/mL [facility] Comment: Guidelines for therapeutic unfractionated heparin levels are summarized below. Heparin (Anti-Xa) levels should be determined in a plasma sample that has been drawn 6 hours after a dose change i.e., steady-state has been reached. DRUG ?Dosing Schedule ? Target Peak Steady-State ?Heparin (Anti-Xa) Levels (Units/mL) Unfractionated ?Continuous infusion ?0.3-0.7 Heparin ?0.3-0.6 for some neurology indications Blood specimen (specimen) 02/02/2019 12:33 PM EDT 02/02/2019 12:42 PM EDT Narrative Resulting Agency Comment Spec In Lab Anabel Duncan MD HEMATOLOGY ORDERABLE S Performing Organization Address [facility] Co de Phone Number [facility] [place] [address] * POCT Glucose (02/02/2019 11:31 AM EDT) Glucose, POC 144 65 - 199 mg/dL [facility] Comment: Supplemental ranges: <140 mg/dL before meals <180 mg/dL all other times of the day Blood specimen (specimen) 02/02/2019 11:31 AM EDT 02/02/2019 11:31 AM EDT Alessandro Limon DO POINT OF CARE TEST O TED Performing Organization Address [facility] de Phone Number [facility] [address] * (ABNORMAL) POCT Glucose (02/02/2019 8:23 AM EDT) Glucose, POC 217(H) 65 - 199 mg/dL [facility] Comment: Supplemental ranges: <140 mg/dL before meals <180 mg/dL all other times of the day Blood specimen (specimen) 02/02/2019 8:23 AM EDT 02/02/2019 8:23 AM EDT Alessandro Limon DO POINT OF CARE TEST Mario JEAN Performing Organization Address [facility] de Phone Number [facility] [place] [address] * Heparin (unfractionated) Level (02/02/2019 6:12 AM EDT) Pathologist [facility] UF Heparin 0.32 IU/mL [facility] Comment: Guidelines for therapeutic unfractionated heparin levels are summarized below. Heparin (Anti-Xa) levels should be determined in a plasma sample that has been drawn 6 hours after a dose change i.e., steady-state has been reached. DRUG ?Dosing Schedule ? Target Peak Steady-State ?Heparin (Anti-Xa) Levels (Units/mL) Unfractionated ?Continuous infusion ?0.3-0.7 Heparin ?0.3-0.6 for some neurology indications Blood specimen (specimen) 02/02/2019 6:12 AM EDT 02/02/2019 6:33 AM EDT Narrative Resulting Agency Comment Spec In Lab Anabel Duncan MD HEMATOLOGY ORDERABLE S Performing Organization Address [facility] Co de Phone Number [facility] [address] * Magnesium (02/02/2019 6:12 AM EDT) Magnesium 0.74 0.69 - 1.07 mmol/L [facility] Blood specimen (specimen) 02/02/2019 6:12 AM EDT 02/02/2019 6:33 AM EDT Narrative Resulting Agency Comment Spec In Lab Alessandro Limon DO CHEMISTRY ORDERABLES Performing Organization Address [facility] Co de Phone Number [facility] [place] [address] * (ABNORMAL) Basic Metabolic Panel (non-fasting) (02/02/2019 6:12 AM EDT) Glucose 146 65 - 199 mg/dL [facility] Comment:Diabetes: >=200 mg/d L plus symptoms Blood Urea Nitrogen 29(H) 10 - 20 mg/dL [facility] Creatinine 1.64(H) 0.80 - 1.50 mg/dL [facility] Sodium 138 135 - 145 mmol/L [facility] Potassium 3.8 3.5 - 5.0 mmol/L [facility] Comment: Please note: ??Patients with WBC >100,000 may have falsely elevated Potassium levels. ??For accurate Potassium quantification in these patients send serum separator tube (gold top) for subsequent determinations. ??Contact the Clinical Chemistry Laboratory if there are any questions. Chloride 100 98 - 107 mmol/L [facility] Carbon Dioxide 25 22 - 31 mmol/L [facility] Anion Gap 13 5 - 15 mmol/L [facility] Calcium 8.9 8.5 - 10.5 mg/dL [facility] Est Glomerular Filtration Rate 42(L) >=60 mL/min/1. 73 m?? [facility] Comment: The eGFR was calculated using the CKD-EPI equation. As with all creatinine based estimates of kidney function, eGFR values calculated with the CKD-EPI equation are not accurate in patients with acute kidney failure, extremes of body mass or the acutely ill. [email or web address]/[facility] ALVAnkf eGFR 48(L) >=60 mL/min/1. 73 m?? [facility] Comment: The eGFR was calculated using the CKD-EPI equation. As with all creatinine based estimates of kidney function, eGFR values calculated with the CKD-EPI equation are not accurate in patients with acute kidney failure, extremes of body mass or the acutely ill. [email or web address] Blood specimen (specimen) 02/02/2019 6:12 AM EDT 02/02/2019 6:33 AM EDT Narrative Resulting Agency Comment Spec In Lab Alessandro Limon DO CHEMISTRY ORDERABLES Performing Organization Address City/State/[facility] Co de Phone Number [facility] [address] * (ABNORMAL) Hemogram (02/02/2019 6:12 AM EDT) White Blood Cell 9.7(H) 4.0 - 9.5 x10(3)/mc L [facility] Red Blood Cell 4.52(L) 4.58 - 5.54 x10(6)/mc L [facility] Hemoglobin 14.0 13.7 - 16.5 gm/dL [facility] Hematocrit 42.4 40.5 - 48.5 % [facility] Mean Cell Volume 93.8(H) 82.9 - 93.[address] [facility] Mean Cell Hemoglobin 31.0 27.5 - 32.[address] [facility] Mean Cell Hemoglobin Concentration 33.0 32.0 - 35.7 gm/dL [facility] Platelet 206 145 - 357 x10(3)/mc L [facility] RDW Standard Deviation 45.8(H) 36.0 - 45.0 [facility] RDW coefficient of variation 13.8 11.4 - 13.8 % [facility] Mean Platelet Volume 9.9 7.6 - 12.9 [facility] NRBC% auto 0.0 % [facility] NRBC Absolute 0.000 0.000 - 0.000 x10(3)/mc L [facility] Blood specimen (specimen) 02/02/2019 6:12 AM EDT 02/02/2019 6:33 AM EDT Narrative Resulting Agency Comment Spec In Lab Alessandro Limon DO HEMATOLOGY ORDERABLE S Performing Organization Address [facility] Co de Phone Number [facility] [place] [address] * POCT Glucose (02/02/2019 6:10 AM EDT) Glucose, POC 139 65 - 199 mg/dL [facility] Comment: Supplemental ranges: <140 mg/dL before meals <180 mg/dL all other times of the day Blood specimen (specimen) 02/02/2019 6:10 AM EDT 02/02/2019 6:10 AM EDT Alessandro Limon DO POINT OF CARE TEST O RDERABLES Performing Organization Address City/[facility] Co de Phone Number [facility] [place] [address] * Heparin (unfractionated) Level (02/01/2019 11:42 PM EDT) UF Heparin 0.24 IU/mL [facility] Comment: Guidelines for therapeutic unfractionated heparin levels are summarized below. Heparin (Anti-Xa) levels should be determined in a plasma sample that has been drawn 6 hours after a dose change i.e., steady-state has been reached. DRUG ?Dosing Schedule ? Target Peak Steady-State ?Heparin (Anti-Xa) Levels (Units/mL) Unfractionated ?Continuous infusion ?0.3-0.7 Heparin ?0.3-0.6 for some neurology indications Blood specimen (specimen) 02/01/2019 11:42 PM EDT 02/01/2019 11:46 PM EDT Narrative Resulting Agency Comment Spec In Lab Anabel Duncan MD HEMATOLOGY ORDERABLE S Performing Organization Address [facility]/State/[facility] Co de Phone Number [facility] [place] [address] * XR Chest PA or AP 1 view (02/01/2019 10:46 PM EDT) Anatomical Region Laterality Modality Chest N/A Digital Radiogra phy Impressions 02/01/2019 10:52 PM EDT Pulmonary vascular congestion and edema likely with trace bilateral effusions. Thank you for letting us participate in the care of this patient. For questions regarding this report, please contact the number below. ? Electronically signed by: Aarti Bocanegra [facility] ([phone]), at 02/01/2019 10:52 PM Narrative 02/01/2019 10:52 PM EDT EXAMINATION: XR CHEST PA OR AP 1 VIEW CLINICAL HISTORY: increase O2 requirement, tachypnea, wheezing, c/o SOB EF=30% -systolic HF; ACS, on heparin drip TECHNIQUE: 1 view of the chest COMPARISON: January 31, 2019 FINDINGS: There is pulmonary vascular congestion and edema. There are bibasilar opacities slightly more confluent in the left lower lobe. There may be trace bilateral effusions. No pneumothorax. Cardiac silhouette is stable. No acute osseous findings. Procedure Note Aarti Bocanegra MD - 02/01/2019 EXAMINATION: XR CHEST PA OR AP 1 VIEW CLINICAL HISTORY: increase O2 requirement, tachypnea, wheezing, c/o SOB EF=30% -systolic HF; ACS, on heparin drip TECHNIQUE: 1 view of the chest COMPARISON: January 31, 2019 FINDINGS: There is pulmonary vascular congestion and edema. There are bibasilaropacities slightly more confluent in the left lower lobe. There may be tracebilateral effusions. No pneumothorax. Cardiac silhouette is stable. No acuteosseous findings. IMPRESSION Pulmonary vascular congestion and edema likely with trace bilateraleffusions. Thank you for letting us participate in the care of this patient. Forquestions regarding this report, please contact the number below. Electronically signed by: Aarti Bocanegra [facility]([phone]), at 02/01/2019 10:52 PM Nadia Haider APRN IMG DX ORDERABLES * POCT Glucose (02/01/2019 8:41 PM EDT) Glucose, POC 111 65 - 199 mg/dL [facility] Comment: Supplemental ranges: <140 mg/dL before meals <180 mg/dL all other times of the day Blood specimen (specimen) 02/01/2019 8:41 PM EDT 02/01/2019 8:41 PM EDT Alessandro Neeru Brxaton KIRBY POINT OF CARE TEST O RDERABLES Performing Organization Address City/[facility]/ZIP Co de Phone Number [facility] [address] * POCT Glucose (02/01/2019 5:02 PM EDT) Glucose, POC 145 65 - 199 mg/dL [facility] Comment: Supplemental ranges: <140 mg/dL before meals <180 mg/dL all other times of the day Blood specimen (specimen) 02/01/2019 5:02 PM EDT 02/01/2019 5:02 PM EDT Alessandro Limon DO POINT OF CARE TEST O RDERABLES Performing Organization Address [facility] Co de Phone Number [facility] [place] [address] * (ABNORMAL) Troponin (02/01/2019 4:50 PM EDT) Troponin-T 0.08(H) 0.00 - 0.00 ng/mL [facility] Comment: The 99th percentile for Troponin T is less than 0.01 ng/mL, any detectable cTnT concentration using this assay should be considered elevated. According to the third universal definition of myocardial infarction the following criteria with a clinical presentation consistent with acute myocardial ischemia meets the diagnosis for a myocardial infarction (VA). Detection of a rise and/or fall of cTnT, with at least one value greater than the 99th percentile (> or = 0.01) and with at least one of the following ?? Symptoms of ischemia ?? New or presumed new significant JJ-midopar-J wave (ST-T) changes or new left bundle [...] additional sample may be indicated. Reference: Third [place] Definition of Myocardial Infarction. Journal of the [place] [employer] 2012;60:1581-98 Blood specimen (specimen) 02/01/2019 4:50 PM EDT 02/01/2019 5:14 PM EDT Narrative Resulting Agency Comment Spec In Lab Anabel Duncan MD CHEMISTRY ORDERABLES Performing Organization Address [facility] Co de Phone Number [facility] [address] * Heparin (unfractionated) Level (02/01/2019 4:50 PM EDT) UF Heparin 0.22 IU/mL [facility] Comment: Guidelines for therapeutic unfractionated heparin levels are summarized below. Heparin (Anti-Xa) levels should be determined in a plasma sample that has been drawn 6 hours after a dose change i.e., steady-state has been reached. DRUG ?Dosing Schedule ? Target Peak Steady-State ?Heparin (Anti-Xa) Levels (Units/mL) Unfractionated ?Continuous infusion ?0.3-0.7 Heparin ?0.3-0.6 for some neurology indications Blood specimen (specimen) 02/01/2019 4:50 PM EDT 02/01/2019 5:14 PM EDT Narrative Resulting Agency Comment Spec In Lab Anabel Duncan MD HEMATOLOGY ORDERABLE S Performing Organization Address [facility] Co de Phone Number [facility] [address] * (ABNORMAL) Magnesium (02/01/2019 3:04 PM EDT) Magnesium 0.68(L) 0.69 - 1.07 mmol/L [facility] Blood specimen (specimen) 02/01/2019 3:04 PM EDT 02/01/2019 3:25 PM EDT Narrative Resulting Agency Comment Spec In Lab Alessandro Siddiqi Braxton CHEMISTRY ORDERABLES [facility] [place] [address] * (ABNORMAL) Basic Metabolic Panel (non-fasting) (02/01/2019 3:04 PM EDT) Glucose 129 65 - 199 mg/dL [facility] Comment:Diabetes: >=200 mg/d L plus symptoms Blood Urea Nitrogen 33(H) 10 - 20 mg/dL [facility] Creatinine 2.05(H) 0.80 - 1.50 mg/dL [facility] Sodium 138 135 - 145 mmol/L [facility] Potassium 4.1 3.5 - 5.0 mmol/L [facility] Comment: Please note: ??Patients with WBC >100,000 may have falsely elevated Potassium levels. ??For accurate Potassium quantification in these patients send serum separator tube (gold top) for subsequent determinations. ??Contact the Clinical Chemistry Laboratory if there are any questions. Chloride 100 98 - 107 mmol/L [facility] Carbon Dioxide 25 22 - 31 mmol/L [facility] Anion Gap 13 5 - 15 mmol/L [facility] Calcium 8.9 8.5 - 10.5 mg/dL [facility] LABORATORY Comment:result rechecked-imm Est Glomerular Filtration Rate 32(L) >=60 mL/min/1. 73 m?? [facility] Comment: The eGFR was calculated using the CKD-EPI equation. As with all creatinine based estimates of kidney function, eGFR values calculated with the CKD-EPI equation are not accurate in patients with acute kidney failure, extremes of body mass or the acutely ill. [email or web address] eGFR 37(L) >=60 mL/min/1. 73 m?? [facility] Comment: The eGFR was calculated using the CKD-EPI equation. As with all creatinine based estimates of kidney function, eGFR values calculated with the CKD-EPI equation are not accurate in patients with acute kidney failure, extremes of body mass or the acutely ill. [email or web address] Blood specimen (specimen) 02/01/2019 3:04 PM EDT 02/01/2019 3:25 PM EDT Narrative Resulting Agency Comment Spec In Lab Alessandro Limon DO CHEMISTRY ORDERABLES Performing Organization Address [facility] Co de Phone Number [facility] [place] [address] * POCT Glucose (02/01/2019 11:22 AM EDT) Glucose, POC 116 65 - 199 mg/dL [facility] Comment: Supplemental ranges: <140 mg/dL before meals <180 mg/dL all other times of the day Blood specimen (specimen) 02/01/2019 11:22 AM EDT 02/01/2019 11:22 AM EDT Alessandro Limon DO POINT OF CARE TEST O RDERABLES Performing Organization Address [facility] Co de Phone Number [facility] [place] [address] * Heparin (unfractionated) Level (02/01/2019 10:58 AM EDT) UF Heparin 0.15 IU/mL [facility] Comment: Guidelines for therapeutic unfractionated heparin levels are summarized below. Heparin (Anti-Xa) levels should be determined in a plasma sample that has been drawn 6 hours after a dose change i.e., steady-state has been reached. DRUG ?Dosing Schedule ? Target Peak Steady-State ?Heparin (Anti-Xa) Levels (Units/mL) Unfractionated ?Continuous infusion ?0.3-0.7 Heparin ?0.3-0.6 for some neurology indications Blood specimen (specimen) 02/01/2019 10:58 AM EDT 02/01/2019 11:30 AM EDT Narrative Resulting Agency Comment Spec In Lab Anabel Duncan MD HEMATOLOGY ORDERABLE S Performing Organization Address City/State/[facility] Co de Phone Number [facility] [place] [address] * ECHO COMPLETE W CONTRAST (02/01/2019 10:38 AM EDT) Anatomical Region Laterality Modality Other 02/01/2019 Narrative 02/01/2019 10:52 AM EDT Amended Report Procedure: ?Transthoracic Echocardiogram Patient: ?MABLE DAVENPORT P ? (Age): 1950(68y) Med Rec#: ? [id number] ?Sex: ?M ? Site Loc: ? [facility] ?Ht / Wt: ??177(cm)/104(kg) Pt. Loc: ?Adult Floor ? BSA: ?2.2 Study Date: ?? 02/01/2019 ?Pt. Type: Inpatient Tape: ? Referring: Anabel Duncan Reading: Gibson Rooney ([id number]) Senior Application Software Engineer: Kameron Miller MARVIN Diagnosis: *Paroxysmal atrial fibrillation (I48.0) Rhythm: ? A-Fib BP: ? 138/76 SUMMARY: 1. The left ventricular chamber size is normal. ??Mild concentric left ventricular hypertrophy is observed. ??Global left ventricular systolic function is moderately reduced. ??Ejection fraction is estimated to be 30%. with beat to beat variation. ??There is diffuse hypokinesis present. ??Doppler assessment is consistent with elevated left sided filling pressure. 2. Right ventricular chamber size, wall thickness, and systolic function are within normal limits. ??The estimated pulmonary artery systolic pressure is 48 mmHg. ??The estimated right atrial pressure is 15 mmHg. 3. The left atrium is severely dilated. 4. There is mild to moderate (1-2+/4+) mitral regurgitation present. 5. There is mild to moderate (1-2+/4+) tricuspid regurgitation present. 6. See remainder of report for additional findings. 7. Compared to the prior study from 2015, there has been a significant decrement in LV function. Findings ? : Study Quality: ? Adequate Left Ventricle: ? The left ventricular chamber size is normal. ?Mild concentric left ventricular hypertrophy is observed. ?There is no evidence of LVOT obstruction. ?No ventricular septal defect is visualized. ?Global left ventricular systolic function is moderately reduced. Ejection fraction is estimated to be 30%. with beat to beat variation. ?The quantitative left ventricular ejection fraction by biplane Elizabeth's method is 33%. ?There is diffuse hypokinesis present. ?Left ventricular diastolic function is abnormal. ?Doppler assessment is consistent with elevated left sided filling pressure. ?The ??basal anterior, basal anterolateral, basal inferoseptal, mid anterior, mid anterolateral, mid inferior, mid inferoseptal, apical septal, apical lateral, and ??apical inferior wall segments are hypokinetic (score 2). ?The ??basal inferolateral, basal inferior, and ??mid inferolateral wall segments are akinetic (score 3). ?Overall wallmotion score index is ??2.00 ?No thrombus is visualized within the left ventricle. ?A false chord is observed in the left ventricle. Left Atrium: ? The left atrium is severely dilated. ?No atrial septal defect is visualized. Right Ventricle: ? Right ventricular chamber size, wall thickness, and systolic function are within normal limits. ?There is evidence of pulmonary hypertension. ?The estimated pulmonary artery systolic pressure is 48 mmHg. ?The estimated right atrial pressure is 15 mmHg. Right Atrium: ? The right atrium [...] to moderate (1-2+/4+) mitral regurgitation present. ?The mitral regurgitant jet is posteriorly directed. Tricuspid Valve: ? The tricuspid valve appears normal in structure and function. ?There is mild to moderate (1-2+/4+) tricuspid regurgitation present. Pulmonic Valve: ? The pulmonic valve appears normal in structure and function. ?There is trace pulmonic regurgitation present. Pericardium: ? A trivial pericardial effusion is visualized. ?A left pleural effusion is present. Aorta: ? The aortic root is normal in size. ?There is mild dilatation of the ascending aorta. Pulmonary Artery: ? The main pulmonary artery appears normal. Venous: ? The inferior vena cava appears dilated. ?There is less than 50% respiratory change in the inferior vena cava dimension consistent with elevated right atrial pressure. Misc: ? See remainder of report for additional findings. ?Two-dimensional echo, spectral Doppler and color Doppler performed. ?Optison contrast (one 3 ml vial) was used to enhance endocardial definition. Excess contrast was discarded. Chambers 2D ?Value ?Units (Range) ? IVSd (2D) ? 1.3 ?cm ? LVPWd (2D) ?1.2 ?cm ? IVS:LVPW ratio (2D) 1.1 ?ratio ? RWT (2D) ?0.4 ?ratio ? RWT PW (2D) ? 0.4 ?ratio ? LVIDd (2D) ?5.8 ?cm ? LVIDs (2D) ?5.2 ?cm ? LVIDd (2D) index ?2.6 ?cm/m2 ? LVIDs (2D) index ?2.3 ?cm/m2 ? LV FS (2D) ?10 ? % ? EF Teichholz (2D) ?? 22 ? % ? Ao root diameter (2D3.6 ?cm (2.1 - 3.6) ? Ascending Ao ?3.8 ?cm (2 - 3.5) ? Volumes/Mass ?Value ?Units (Range) ? LA Area 4 CH ?29.7 ? cm2 (<21) ? LA ESV BP (A/L) inde63.6 ? ml/m2 ? RA AREA 4CH ? 23.2 ? cm2 ? LV ESV SP 4CH (MOD) 148.4 ?ml ? LV ESV SP 2CH (MOD) 123.1 ?ml ? LV EDV BP ? 207.3 ?ml ? LV ESV BP ? 139.5 ?ml ? LV EDV BP index ? 94.2 ? ml/m2 ? LV ESV BP index ? 63.4 ? ml/m2 ? BP EF (MOD) ? 33 ? % ? LV mass (2D) ?303.5 ?g ? LV mass (2D) index ??138 ?g/m2 ? Diastolic/Systolic Function ?Value ?Units (Range) ? MV E-wave Vmax ?1 ?m/sec ? LV septal e' Vmax ?? 0.1 ?m/sec ? LV lateral e' Vmax ??0.1 ?m/sec ? LV average e' Vmax ??0.1 ?m/sec ? LV E:e' septal ratio20.6 ? ratio ? LV E:e' lateral rati12.9 ? ratio ? LV average E:e' rati17.2 ? ratio ? Tricuspid Valve ?Value ?Units (Range) ? TR Vmax ? 2.9 ?m/sec ? TR peak gradient ?32.8 ? mmHg ? RAP ? 15 ? mmHg ? RVSP ?48 ? mmHg ? Wall Motion: Segment Name ?Rest ? Base-Anteroseptal ?? Normal ? Base-Anterior ? Hypokinetic ? Base-Anterolateral ??Hypokinetic ? Base-Posterolateral Akinetic ? Base-Inferior ? Akinetic ? Base-Inferoseptal ?? Hypokinetic ? Mid-Anteroseptal ?Normal ? Mid-Anterior ?Hypokinetic ? Mid-Anterolateral ?? Hypokinetic ? Mid-Posterolateral ??Akinetic ? Mid-Inferior ?Hypokinetic ? Mid-Inferoseptal ?Hypokinetic ? [place]-Septal ? Hypokinetic ? [place]-Anterior ? Normal ? [place]-Lateral ?Hypokinetic ? [place]-Inferior ? Hypokinetic ? [place]-Tip ?Hypokinetic ? This report has been electronically signed by: Gibson Rooney MD ? 02/01/2019 13:30:01 Images reviewed and interpretation verified [facility] Procedure Note Gibson Rooney MD - 02/01/2019 Amended Report Procedure: Transthoracic Echocardiogram Patient: MABLE Gomez (Age): 1950(68y) Med Rec#: [id number] Sex: M Site Loc: [facility] Ht / Wt: 177(cm)/104(kg) Pt. Loc: Adult Floor BSA: 2.2 Study Date: 02/01/2019 Pt. Type: Inpatient Tape: Referring: Anabel Duncan Reading: Gibson Rooney ([id number]) Senior Application Software Engineer: Kameron Miller [facility] Diagnosis: *Paroxysmal atrial fibrillation (I48.0) Rhythm: A-Fib BP: 138/76 SUMMARY: 1. The left ventricular chamber size is normal. Mild concentric left ventricular hypertrophy is observed. Global left ventricular systolic function is moderately reduced. Ejection fraction is estimated to be 30%. with beat to beat variation. There is diffuse hypokinesis present. Doppler assessment is consistent with elevated left sided filling pressure. 2. Right ventricular chamber size, wall thickness, and systolic function are within normal limits. The estimated pulmonary artery systolic pressure is 48 mmHg. The estimated right atrial pressure is 15 mmHg. 3. The left atrium is severely dilated. 4. There is mild to moderate (1-2+/4+) mitral regurgitation present. 5. There is mild to moderate (1-2+/4+) tricuspid regurgitation present. 6. See remainder of report for additional findings. 7. Compared to the prior study from 2015, there has been a significant decrement in LV function. Findings : Study Quality: Adequate Left Ventricle: The left ventricular chamber size is normal. Mild concentric left ventricular hypertrophy is observed. There is no evidence of LVOT obstruction. No ventricular septal defect is visualized. Global left ventricular systolic function is moderately reduced. Ejection fraction is estimated to be 30%. with beat to beat variation. The quantitative left ventricular ejection fraction by biplane Elizabeth's method is 33%. There is diffuse hypokinesis present. Left ventricular diastolic function is abnormal. Doppler assessment is consistent with elevated left sided filling pressure. The basal anterior, basal anterolateral, basal inferoseptal, mid anterior, mid anterolateral, mid inferior, mid inferoseptal, apical septal, apical lateral, and apical inferior wall segments are hypokinetic (score 2). The basal inferolateral, basal inferior, and mid inferolateral wall segments are akinetic (score 3). Overall wallmotion score index is 2.00 No thrombus is visualized within the left ventricle. A false chord is observed in the left ventricle. Left Atrium: The left atrium is severely dilated. No atrial septal defect is visualized. Right Ventricle: Right ventricular chamber size, wall thickness, and systolic function are within normal limits. There is evidence of pulmonary hypertension. The estimated pulmonary artery systolic pressure is 48 mmHg. The estimated right atrial pressure is 15 mmHg. Right Atrium: The right atrium is [...] mild to moderate (1-2+/4+) tricuspid regurgitation present. Pulmonic Valve: The pulmonic valve appears normal in structure and function. There is trace pulmonic regurgitation present. Pericardium: A trivial pericardial effusion is visualized. A left pleural effusion is present. Aorta: The aortic root is normal in size. There is mild dilatation of the ascending aorta. Pulmonary Artery: The main pulmonary artery appears normal. Venous: The inferior vena cava appears dilated. There is less than 50% respiratory change in the inferior vena cava dimension consistent with elevated right atrial pressure. Misc: See remainder of report for additional findings. Two-dimensional echo, spectral Doppler and color Doppler performed. Optison contrast (one 3 ml vial) was used to enhance endocardial definition. Excess contrast was discarded. Chambers 2D Value Units (Range) IVSd (2D) 1.3 cm LVPWd (2D) 1.2 cm IVS:LVPW ratio (2D) 1.1 ratio RWT (2D) 0.4 ratio RWT PW (2D) 0.4 ratio LVIDd (2D) 5.8 cm LVIDs (2D) 5.2 cm LVIDd (2D) index 2.6 cm/m2 LVIDs (2D) index 2.3 cm/m2 LV FS (2D) 10 % EF Teichholz (2D) 22 % Ao root diameter (2D3.6 cm (2.1 - 3.6) Ascending Ao 3.8 cm (2 - 3.5) Volumes/Mass Value Units (Range) LA Area 4 CH 29.7 cm2 (<21) LA ESV BP (A/L) inde63.6 ml/m2 RA AREA 4CH 23.2 cm2 LV ESV SP 4CH (MOD) 148.4 ml LV ESV SP 2CH (MOD) 123.1 ml LV EDV BP 207.3 ml LV ESV BP 139.5 ml LV EDV BP index 94.2 ml/m2 LV ESV BP index 63.4 ml/m2 BP EF (MOD) 33 % LV mass (2D) 303.5 g LV mass (2D) index 138 g/m2 Diastolic/Systolic Function Value Units (Range) MV E-wave Vmax 1 m/sec LV septal e' Vmax 0.1 m/sec LV lateral e' Vmax 0.1 m/sec LV average e' Vmax 0.1 m/sec LV E:e' septal ratio20.6 ratio LV E:e' lateral rati12.9 ratio LV average E:e' rati17.2 ratio Tricuspid Valve Value Units (Range) TR Vmax 2.9 m/sec TR peak gradient 32.8 mmHg RAP 15 mmHg RVSP 48 mmHg Wall Motion: Segment Name Rest Base-Anteroseptal Normal Base-Anterior Hypokinetic Base-Anterolateral Hypokinetic Base-Posterolateral Akinetic Base-Inferior Akinetic Base-Inferoseptal Hypokinetic Mid-Anteroseptal Normal Mid-Anterior Hypokinetic Mid-Anterolateral Hypokinetic Mid-Posterolateral Akinetic Mid-Inferior Hypokinetic Mid-Inferoseptal Hypokinetic Kadoka-Septal Hypokinetic Kadoka-Anterior Normal [place]oka-Lateral Hypokinetic [place]-Inferior Hypokinetic [place]-Tip Hypokinetic This report has been electronically signed by: Gibson Rooney MD 02/01/2019 13:30:01 Images reviewed and interpretation verified [facility] Anabel Duncan MD ECHO ORDERABLES * (ABNORMAL) Troponin (02/01/2019 7:40 AM EDT) Troponin-T 0.08(H) 0.00 - 0.00 ng/mL [facility] Comment: The 99th percentile for Troponin T is less than 0.01 ng/mL, any detectable cTnT concentration using this assay should be considered elevated. According to the third universal definition of myocardial infarction the following criteria with a clinical presentation consistent with acute myocardial ischemia meets the diagnosis for a myocardial infarction (VA). Detection of a rise and/or fall of cTnT, with at least one value greater than the 99th percentile (> or = 0.01) and with at least one of the following ?? Symptoms of ischemia ?? New or presumed new significant [id number]-G wave (ST-T) changes or new left bundle [...] additional sample may be indicated. Reference: Third [place] Definition of Myocardial Infarction. Journal of the [place] [employer] 2012;60:1581-98 Blood specimen (specimen) 02/01/2019 7:40 AM EDT 02/01/2019 7:47 AM EDT Narrative Resulting Agency Comment Spec In Lab Nadia Haider APRN CHEMISTRY ORDERABL ES [facility] [address] * (ABNORMAL) Differential, Automated (02/01/2019 7:40 AM EDT) Neutrophil % 77.0 % [facility] Neutrophil Absolute 7.40(H) 1.70 - 6.10 x10(3)/mc L [facility] Lymph % 13.0 % [facility] Lymphocytes Abs 1.2 0.9 - 3.2 x10(3)/mc L [facility] Monocyte % 8.1 % [facility] Monocyte Abs 0.8 0.3 - 0.9 x10(3)/mc L [facility] Eos % 1.2 % [facility] Eosinophils Abs 0.1 0.0 - 0.4 x10(3)/mc L [facility] Basophil % 0.5 % [facility] Baso Absolute 0.0 0.0 - 0.1 x10(3)/mc L [facility] Immature Gran % 0.20 % [facility] Comment: Immature granulocytes(IG's)percentage and absolute count will include metamyelocytes, myelocytes, and promyelocytes. Blood smears from CBCs yielding IG's will be scanned manually for concordance. If this scan disagrees with the automated IG or if promyelocytes are noted, a manual differential will be performed. Immature Gran Absolute 0.02 0.00 - 0.04 x10(3)/mc L [facility] Blood specimen (specimen) 02/01/2019 7:40 AM EDT 02/01/2019 7:47 AM EDT Narrative Resulting Agency Comment Spec In Lab Anabel Duncan MD HEMATOLOGY ORDERABLE S [facility] [place] [address] * (ABNORMAL) Hemogram (02/01/2019 7:40 AM EDT) White Blood Cell 9.6(H) 4.0 - 9.5 x10(3)/mc L [facility] Red Blood Cell 4.50(L) 4.58 - 5.54 x10(6)/mc L [facility] Hemoglobin 14.0 13.7 - 16.5 gm/dL [facility] Hematocrit 41.2 40.5 - 48.5 % [facility] Mean Cell Volume 91.6 82.9 - 93.1 [facility] Mean Cell Hemoglobin 31.1 27.5 - 32.1 [facility] Mean Cell Hemoglobin Concentration 34.0 32.0 - 35.7 gm/dL [facility] Platelet 206 145 - 357 x10(3)/mc L [facility] RDW Standard Deviation 45.5(H) 36.0 - 45.0 [facility] RDW coefficient of variation 13.9(H) 11.4 - 13.8 % [facility] Mean Platelet Volume 10.0 7.6 - 12.9 [facility] NRBC% auto 0.0 % [facility] NRBC Absolute 0.000 0.000 - 0.000 x10(3)/ L [facility] Blood specimen (specimen) 02/01/2019 7:40 AM EDT 02/01/2019 7:47 AM EDT Narrative Resulting Agency Comment Spec In Lab Anabel Duncan MD HEMATOLOGY ORDERABLE S [facility] [place] [address] * POCT Glucose (02/01/2019 6:22 AM EDT) Glucose, POC 121 65 - 199 mg/dL [facility] Comment: Supplemental ranges: <140 mg/dL before meals <180 mg/dL all other times of the day Blood specimen (specimen) 02/01/2019 6:22 AM EDT 02/01/2019 6:22 AM EDT Anabel Duncan MD POINT OF CARE TEST O RDERABLES [facility] [place] [address] * (ABNORMAL) BLOOD GAS 2 ARTERIAL (02/01/2019 4:14 AM EDT) pH, Arterial 7.46(H) 7.35 - 7.45 [facility] PCO2, Arterial 33(L) 35 - [address] [facility] PO2, Arterial 122(H) 85 - [address] [facility] Bicarbonate, Arterial 22.9 20.0 - 26.0 mmol/L [facility] Base Excess, Arterial -1.0 -3.0 - 3.0 mmol/L [facility] Hgb Blood Gas 14.9 13.7 - 16.5 gm/dL [facility] Oxyhemoglobin, Arterial 97.4(H) 94.0 - 97.0 % [facility] Carboxyhemoglob in, Arterial 0.7 % [facility] Comment: Nonsmokers: 0.5-1.5% COHB Smokers: Variable, but usually less than 10% Toxic: 20-30% COHB Lethal: Greater than 60% COHB Methemoglobin, Arterial 0.3 <=1.5 % [facility] Na Whole Blood 134(L) 135 - 145 mmol/L [facility] K Whole Blood 3.7 3.5 - 5.0 mmol/L [facility] Comment: Please note: Patients with WBC >100,000 may have falsely elevated Potassium levels. Contact the Clinical Chemistry Laboratory if there are any questions. ICa Whole Blood 1.16 1.15 - 1.33 mmol/L [facility] Comment: Note: ??Total bilirubin higher than 20 mg/dL may lead to falsely low ionized calcium. CL Whole Blood 103 98 - 107 mmol/L [facility] Gluc Whole Bld 126 65 - 199 mg/dL [facility] Comment:Diabetes: >=200 mg/d L plus symptoms. Lactate WB 1.6 0.5 - 2.2 mmol/L [facility] FIO2 Art 60 % [facility] PF Ratio Art 203 [facility] Blood specimen (specimen) 02/01/2019 4:14 AM EDT 02/01/2019 4:14 AM EDT Anabel Duncan MD POINT OF CARE TEST O RDERABLES [facility] [place] [address] * Heparin (unfractionated) Level (02/01/2019 3:10 AM EDT) UF Heparin 0.17 IU/mL [facility] Comment: Guidelines for therapeutic unfractionated heparin levels are summarized below. Heparin (Anti-Xa) levels should be determined in a plasma sample that has been drawn 6 hours after a dose change i.e., steady-state has been reached. DRUG ?Dosing Schedule ? Target Peak Steady-State ?Heparin (Anti-Xa) Levels (Units/mL) Unfractionated ?Continuous infusion ?0.3-0.7 Heparin ?0.3-0.6 for some neurology indications Blood specimen (specimen) 02/01/2019 3:10 AM EDT 02/01/2019 3:20 AM EDT Narrative Resulting Agency Comment Spec In Lab Anabel Duncan MD HEMATOLOGY ORDERABLE S Performing Organization Address City/State/[facility] Co de Phone Number [facility] [place] [address] * (ABNORMAL) Differential, Automated (02/01/2019 3:10 AM EDT) Neutrophil % 77.6 % [facility] Neutrophil Absolute 8.18(H) 1.70 - 6.10 x10(3)/ L [facility] Lymph % 11.9 % [facility] Lymphocytes Abs 1.2 0.9 - 3.2 x10(3)/ L [facility] Monocyte % 8.5 % [facility] Monocyte Abs 0.9 0.3 - 0.9 x10(3)/ L [facility] Eos % 1.2 % [facility] Eosinophils Abs 0.1 0.0 - 0.4 x10(3)/ L [facility] Basophil % 0.4 % [facility] Baso Absolute 0.0 0.0 - 0.1 x10(3)/ L [facility] Immature Gran % 0.40 % [facility] Comment: Immature granulocytes(IG's)percentage and absolute count will include metamyelocytes, myelocytes, and promyelocytes. Blood smears from CBCs yielding IG's will be scanned manually for concordance. If this scan disagrees with the automated IG or if promyelocytes are noted, a manual differential will be performed. Immature Gran Absolute 0.04 0.00 - 0.04 x10(3)/ L [facility] Blood specimen (specimen) 02/01/2019 3:10 AM EDT 02/01/2019 3:20 AM EDT Narrative Resulting Agency Comment Spec In Lab Anabel Duncan MD HEMATOLOGY ORDERABLE S [facility] [place] [address] * (ABNORMAL) Hemogram (02/01/2019 3:10 AM EDT) White Blood Cell 10.5(H) 4.0 - 9.5 x10(3)/mc L [facility] Red Blood Cell 4.33(L) 4.58 - 5.54 x10(6)/mc L [facility] Hemoglobin 13.5(L) 13.7 - 16.5 gm/dL [facility] Hematocrit 39.7(L) 40.5 - 48.5 % [facility] Mean Cell Volume 91.7 82.9 - 93.1 [facility] Mean Cell Hemoglobin 31.2 27.5 - 32.[address] [facility] Mean Cell Hemoglobin Concentration 34.0 32.0 - 35.7 gm/dL [facility] Platelet 215 145 - 357 x10(3)/mc L [facility] RDW Standard Deviation 45.5(H) 36.0 - 45.0 [facility] RDW coefficient of variation 13.8 11.4 - 13.8 % [facility] Mean Platelet Volume 10.0 7.6 - 12.9 [facility] NRBC% auto 0.0 % [facility] NRBC Absolute 0.000 0.000 - 0.000 x10(3)/ L [facility] Blood specimen (specimen) 02/01/2019 3:10 AM EDT 02/01/2019 3:20 AM EDT Narrative Resulting Agency Comment Spec In Lab Anabel Duncan MD HEMATOLOGY ORDERABLE S [facility] [place] [address] * (ABNORMAL) Basic Metabolic Panel (non-fasting) (02/01/2019 3:10 AM EDT) Glucose 116 65 - 199 mg/dL [facility] Comment:Diabetes: >=200 mg/d L plus symptoms Blood Urea Nitrogen 29(H) 10 - 20 mg/dL [facility] Creatinine 1.66(H) 0.80 - 1.50 mg/dL [facility] Sodium 140 135 - 145 mmol/L [facility] Potassium 3.3(L) 3.5 - 5.0 mmol/L [facility] Comment: Please note: ??Patients with WBC >100,000 may have falsely elevated Potassium levels. ??For accurate Potassium quantification in these patients send serum separator tube (gold top) for subsequent determinations. ??Contact the Clinical Chemistry Laboratory if there are any questions. Chloride 108(H) 98 - 107 mmol/L [facility] Carbon Dioxide 21(L) 22 - 31 mmol/L [facility] Anion Gap 11 5 - 15 mmol/L [facility] Calcium 7.1(L) 8.5 - 10.5 mg/dL [facility] Comment:result rechecked- Est Glomerular Filtration Rate 41(L) >=60 mL/min/1. 73 m?? [facility] Comment: The eGFR was calculated using the CKD-EPI equation. As with all creatinine based estimates of kidney function, eGFR values calculated with the CKD-EPI equation are not accurate in patients with acute kidney failure, extremes of body mass or the acutely ill. [email or web address]/[email or web address] eGFR 48(L) >=60 mL/min/1. 73 m?? [facility] Comment: The eGFR was calculated using the CKD-EPI equation. As with all creatinine based estimates of kidney function, eGFR values calculated with the CKD-EPI equation are not accurate in patients with acute kidney failure, extremes of body mass or the acutely ill. [email or web address] Blood specimen (specimen) 02/01/2019 3:10 AM EDT 02/01/2019 3:20 AM EDT Narrative Resulting Agency Comment Spec In Lab Anabel Duncan MD CHEMISTRY ORDERABLES Performing Organization Address City/[facility]/ZIP Co de Phone Number [facility] [place] [address] * EKG 12 Lead (02/01/2019 1:00 AM EDT) Ventricular rate 63 BPM MUSE SYSTEM Atrial Rate 63 BPM MUSE SYSTEM P-R Interval 184 ms MUSE SYSTEM QRS Duration 108 ms MUSE SYSTEM Q-T Interval 442 ms MUSE SYSTEM QTC Calculated (Bezet) 452 ms MUSE SYSTEM Calculated P [place] 72 degrees MUSE SYSTEM Calculated R [place] -54 degrees MUSE SYSTEM Calculated T [place] 118 degrees MUSE SYSTEM INTERPRETATION Sinus rhythm with Premature atrial complexes Left axis deviation ST & T wave abnormality, consider anterolateral ischemia Abnormal ECG When compared with ECG of 31-JAN-2019 18:31, (unconfirmed) Atrial bigeminy is no longer present Confirmed by MD Jonatan, Guille Almonte ([id number]) on 02/01/2019 3:56:21 PM MUSE SYSTEM 02/01/2019 1:00 AM EDT 02/01/2019 3:56 PM EDT Nadia Haider APRN ECG ORDERABLES Performing Organization Address [facility] Co de Phone Number MUSE SYSTEM * (ABNORMAL) Troponin (01/31/2019 11:33 PM EDT) Troponin-T 0.07(H) 0.00 - 0.00 ng/mL [facility] Comment: The 99th percentile for Troponin T is less than 0.01 ng/mL, any detectable cTnT concentration using this assay should be considered elevated. According to the third universal definition of myocardial infarction the following criteria with a clinical presentation consistent with acute myocardial ischemia meets the diagnosis for a myocardial infarction (VA). Detection of a rise and/or fall of cTnT, with at least one value greater than the 99th percentile (> or = 0.01) and with at least one of the following ?? Symptoms of ischemia ?? New or presumed new significant LA-[id number]-M wave (ST-T) changes or new left bundle [...] additional sample may be indicated. Reference: Third [place] Definition of Myocardial Infarction. Journal of the [place] [employer] 2012;60:1581-98 Blood specimen (specimen) 01/31/2019 11:33 PM EDT 01/31/2019 11:36 PM EDT Narrative Resulting Agency Comment Spec In Lab Anabel Duncan MD CHEMISTRY ORDERABLES Performing Organization Address City/State/[facility] Co de Phone Number [facility] [place] [address] * XR Chest PA or AP 1 view (01/31/2019 10:42 PM EDT) Anatomical Region Laterality Modality Chest N/A Digital Radiogra phy Impressions 02/01/2019 12:08 AM EDT Pulmonary vascular congestion and edema with trace bilateral pleural effusions. Thank you for letting us participate in the care of this patient. For questions regarding this report, please contact the number below. ? Electronically signed by: Aarti Bocanegra [facility] ([phone]), at 02/01/2019 12:08 AM Narrative 02/01/2019 12:08 AM EDT EXAMINATION: XR CHEST PA OR AP 1 VIEW CLINICAL HISTORY: desaturating w/ increase O2 requirement while asleep, h/o ARIELLA w/ mallampati score of 4; but CXR today w/ pulm edema and pleural effusion TECHNIQUE: 1 view of the chest COMPARISON: January 31, 2019, 1229 hours FINDINGS: There are bibasilar opacities slightly more confluent in the retrocardiac region. There is pulmonary vascular congestion and edema. There are trace bilateral pleural effusions. Cardiac silhouette is mildly prominent but stable in size. No pneumothorax. Procedure Note Aarti Bocanegra MD - 02/01/2019 EXAMINATION: XR CHEST PA OR AP 1 VIEW CLINICAL HISTORY: desaturating w/ increase O2 requirement while asleep,h/o ARIELLA w/ mallampati score of 4; but CXR today w/ pulm edema and pleuraleffusion TECHNIQUE: 1 view of the chest COMPARISON: January 31, 2019, 1229 hours FINDINGS: There are bibasilar opacities slightly more confluent in theretrocardiac region. There is pulmonary vascular congestion and edema. There aretrace bilateral pleural effusions. Cardiac silhouette is mildly prominent butstable in size. No pneumothorax. IMPRESSION Pulmonary vascular congestion and edema with trace bilateral pleuraleffusions. Thank you for letting us participate in the care of this patient. Forquestions regarding this report, please contact the number below. Electronically signed by: Aarti Bocanegra [facility]([phone]), at 02/01/2019 12:08 AM Nadia Haider APRN IMDanielle DX ORDERABLES * POCT Glucose (01/31/2019 8:50 PM EDT) Glucose, POC 145 65 - 199 mg/dL [facility] Comment: Supplemental ranges: <140 mg/dL before meals <180 mg/dL all other times of the day Blood specimen (specimen) 01/31/2019 8:50 PM EDT 01/31/2019 8:50 PM EDT Anabel Duncan MD POINT OF CARE TEST O RDERABLES Performing Organization Address City/[facility]/ZIP Co de Phone Number [facility] [place] [address] * (ABNORMAL) Differential, Automated (01/31/2019 8:36 PM EDT) Neutrophil % 81.4 % [facility] Neutrophil Absolute 9.84(H) 1.70 - 6.10 x10(3)/mc L [facility] Lymph % 8.6 % [facility] Lymphocytes Abs 1.0 0.9 - 3.2 x10(3)/mc L [facility] Monocyte % 8.5 % [facility] Monocyte Abs 1.0(H) 0.3 - 0.9 x10(3)/mc L [facility] Eos % 0.8 % [facility] Eosinophils Abs 0.1 0.0 - 0.4 x10(3)/[facility] Basophil % 0.3 % [facility] Baso Absolute 0.0 0.0 - 0.1 x10(3)/mc L [facility] Immature Gran % 0.40 % [facility] Comment: Immature granulocytes(IG's)percentage and absolute count will include metamyelocytes, myelocytes, and promyelocytes. Blood smears from CBCs yielding IG's will be scanned manually for concordance. If this scan disagrees with the automated IG or if promyelocytes are noted, a manual differential will be performed. Immature Gran Absolute 0.05(H) 0.00 - 0.04 x10(3)/mc L [facility] Blood specimen (specimen) 01/31/2019 8:36 PM EDT 01/31/2019 8:40 PM EDT Narrative Resulting Agency Comment Spec In Lab Anabel Duncan MD HEMATOLOGY ORDERABLE S Performing Organization Address [facility]/ZIP Co de Phone Number [facility] [address] * (ABNORMAL) Hemogram (01/31/2019 8:36 PM EDT) White Blood Cell 12.1(H) 4.0 - 9.5 x10(3)/mc L [facility] Red Blood Cell 4.84 4.58 - 5.54 x10(6)/mc L [facility] Hemoglobin 15.2 13.7 - 16.5 gm/dL [facility] Hematocrit 44.7 40.5 - 48.5 % [facility] Mean Cell Volume 92.4 82.9 - 93.[address] [facility] Mean Cell Hemoglobin 31.4 27.5 - 32.[address] [facility] Mean Cell Hemoglobin Concentration 34.0 32.0 - 35.7 gm/dL [facility] Platelet 238 145 - 357 x10(3)/[facility] RDW Standard Deviation 45.2(H) 36.0 - 45.0 [facility] RDW coefficient of variation 13.6 11.4 - 13.8 % [facility] Mean Platelet Volume 9.3 7.6 - 12.[address] [facility] NRBC% auto 0.0 % [facility] NRBC Absolute 0.000 0.000 - 0.000 x10(3)/ L [facility] Blood specimen (specimen) 01/31/2019 8:36 PM EDT 01/31/2019 8:40 PM EDT Narrative Resulting Agency Comment Spec In Lab Anabel Duncan MD HEMATOLOGY ORDERABLE S [facility] [address] * Heparin (unfractionated) Level (01/31/2019 8:36 PM EDT) UF Heparin <0.04 IU/mL [facility] Comment: Guidelines for therapeutic unfractionated heparin levels are summarized below. Heparin (Anti-Xa) levels should be determined in a plasma sample that has been drawn 6 hours after a dose change i.e., steady-state has been reached. DRUG ?Dosing Schedule ? Target Peak Steady-State ?Heparin (Anti-Xa) Levels (Units/mL) Unfractionated ?Continuous infusion ?0.3-0.7 Heparin ?0.3-0.6 for some neurology indications Blood specimen (specimen) 01/31/2019 8:36 PM EDT 01/31/2019 8:40 PM EDT Narrative Resulting Agency Comment Spec In Lab Anabel Duncan MD HEMATOLOGY ORDERABLE S Performing Organization Address City/State/[facility] Co de Phone Number [facility] [place] [address] * EKG 12 Lead (01/31/2019 4:28 PM EDT) Ventricular rate 70 BPM MUSE SYSTEM Atrial Rate 70 BPM MUSE SYSTEM P-R Interval 218 ms MUSE SYSTEM QRS Duration 106 ms MUSE SYSTEM Q-T Interval 416 ms MUSE SYSTEM QTC Calculated (Bezet) 449 ms MUSE SYSTEM Calculated P [place] 46 degrees MUSE SYSTEM Calculated R [place] -61 degrees MUSE SYSTEM Calculated T [place] 131 degrees MUSE SYSTEM INTERPRETATION Sinus rhythm with 1st degree A-V block Occasional Premature ventricular complexes and Premature atrial complexes Left axis deviation ST & T wave abnormality, consider anterolateral ischemia Abnormal ECG When compared with ECG of 31-JAN-2019 11:21, (unconfirmed) Sinus rhythm has replaced Atrial flutter T wave inversion now evident in Anterior leads Confirmed by MD Jonatan, Guille Almonte ([id number]) on 02/01/2019 3:45:40 PM MUSE SYSTEM 01/31/2019 4:28 PM EDT 02/01/2019 3:45 PM EDT Anabel Duncan MD ECG ORDERABLES Performing Organization Address City/[facility] Co de Phone Number MUSE SYSTEM * CK (01/31/2019 4:20 PM EDT) Creatine Kinase 127 0 - 200 unit/L [facility] Blood specimen (specimen) Venous Draw / Unknown 01/31/2019 4:20 PM EDT 01/31/2019 6:02 PM EDT Narrative Resulting Agency Comment Spec In Lab Anabel Duncan MD CHEMISTRY ORDERABLES Performing Organization Address [facility] Co de Phone Number [facility] [address] * Lavender Tube HOLD (01/31/2019 4:20 PM EDT) Lavender Hold Sample in lab. [facility] Blood specimen (specimen) Venous Draw / Unknown 01/31/2019 4:20 PM EDT 01/31/2019 4:37 PM EDT Rocky Wong MD HEMATOLOGY ORDERABL ES Performing Organization Address [facility] de Phone Number [facility] [address] * (ABNORMAL) Basic Metabolic Panel (non-fasting) (01/31/2019 4:20 PM EDT) Glucose 131 65 - 199 mg/dL [facility] Comment:Diabetes: >=200 mg/d L plus symptoms Blood Urea Nitrogen 28(H) 10 - 20 mg/dL [facility] Creatinine 2.12(H) 0.80 - 1.50 mg/dL [facility] Sodium 139 135 - 145 mmol/L [facility] Potassium 3.9 3.5 - 5.0 mmol/L [facility] Comment: Please note: ??Patients with WBC >100,000 may have falsely elevated Potassium levels. ??For accurate Potassium quantification in these patients send serum separator tube (gold top) for subsequent determinations. ??Contact the Clinical Chemistry Laboratory if there are any questions. Chloride 100 98 - 107 mmol/L [facility] Carbon Dioxide 27 22 - 31 mmol/L [facility] Anion Gap 12 5 - 15 mmol/L [facility] Calcium 9.6 8.5 - 10.5 mg/dL [facility] Est Glomerular Filtration Rate 31(L) >=60 mL/min/1. 73 m?? [facility] Comment: The eGFR was calculated using the CKD-EPI equation. As with all creatinine based estimates of kidney function, eGFR values calculated with the CKD-EPI equation are not accurate in patients with acute kidney failure, extremes of body mass or the acutely ill. http://Celect/[facility] ALVAnkf eGFR 35(L) >=60 mL/min/1. 73 m?? [facility] Comment: The eGFR was calculated using the CKD-EPI equation. As with all creatinine based estimates of kidney function, eGFR values calculated with the CKD-EPI equation are not accurate in patients with acute kidney failure, extremes of body mass or the acutely ill. http://Celect/[facility] ALVAnkf Blood specimen (specimen) 01/31/2019 4:20 PM EDT 01/31/2019 4:37 PM EDT Narrative Resulting Agency Comment Spec In Lab Anabel Duncan MD CHEMISTRY ORDERABLES [facility] [place] [address] * (ABNORMAL) Troponin (01/31/2019 4:20 PM EDT) Troponin-T 0.04(H) 0.00 - 0.00 ng/mL [facility] Comment: Called by: MANE, Read back by: Azeb Bartlett, Date/Time:01/31/19 17:34. The 99th percentile for Troponin T is less than 0.01 ng/mL, any detectable cTnT concentration using this assay should be considered elevated. According to the third universal definition of myocardial infarction the following criteria with a clinical presentation consistent with acute myocardial ischemia meets the diagnosis for a myocardial infarction (VA). Detection of a rise and/or fall of cTnT, with at least one value greater than the 99th percentile (> or = 0.01) and with at least one of the following ?? Symptoms of ischemia ?? New or presumed new significant JL-dezzhko-X wave (ST-T) changes or new left bundle [...] additional sample may be indicated. Reference: Third [place] Definition of Myocardial Infarction. Journal of the [place] [employer] 2012;60:1581-98 Blood specimen (specimen) 01/31/2019 4:20 PM EDT 01/31/2019 4:37 PM EDT Narrative Resulting Agency Comment Spec In Lab Mundo Yeung MD CHEMISTRY ORDERABLES Performing Organization Address City/State/[facility] Co de Phone Number [facility] [place] [address] * US Renal Transplant Left (01/31/2019 2:34 PM EDT) Anatomical Region Laterality Modality Abdomen Left Ultrasound 01/31/2019 2:30 PM EDT Impressions 01/31/2019 2:47 PM EDT 1. ??Left lower quadrant renal transplant shows normal corticomedullary differentiation. No collecting system dilatation or peritransplant collection identified. 2. ??Normal intrarenal arcuate artery resistive indices. 3. ??Interrogated main renal artery and vein are patent. Thank you for letting us participate in the care of this patient. For questions regarding this report, please contact the number below. ? Jolly Payne, Staff Physician Electronically Signed Final Report ?? 01/31/2019 02:47 pm Narrative 01/31/2019 2:47 PM EDT Transplant ?(Signed Final 01/31/2019 02:47 pm) PATIENT INFO: ID #: ? [id number] ? : [birth year] (68 yrs) Name: ? ETHEL Gomez MABLE ? Visit Date:01/31/2019 02:30 pm PERFORMED BY: Performed By: ? Osmar Dowd RDMS Attending: ?Kerry GERBER, Jolly Toth Referred By: ?MUNDO YEUNG Location: ? [place] SERVICE(S) PROVIDED: ??URTPL - Renal Transplant - Left - [id number] INDICATIONS: ??h/o kidney transplant in 2016. decreased urine output. COMPARISON: 12/28/15 renal transplant ultrasound RENAL ALLOGRAFT: Size (cm) ? L: 11.5 Cortical Thickness: ?Normal Corticomedullary Differention: Normal Echogenicity: ?Normal Perinephric Fluid/Collections: No collection identified Hydronephrosis: ?No sonographic evidence Comment: ?LLQ renal transplant RENAL TRANSPLANT DUPLEX: LEFT Main Renal ? PSV ? EDV ?RIR ??Waveform ?Artery ?(cm/s) ??(cm/s) Proximal: ?31.5 ? 7.9 ?0.7 Patent Distal: ?28.8 ? 8.1 ?0.7 Patent LEFT Main Renal ? Waveform ? Vein Proximal: ?Patent Mid: ? Patent Distal: ?Patent LEFT [place] Iliac ? Waveform ?? Artery To Anastomos ?is Proximal: ?Patent LEFT [place] Iliac ? Waveform ?Vein To Anastomos ?is Proximal: ?Patent PARENCHYMAL EVALUATION: RIGHT ?Arcuate ? RI ??Waveform ?Artery Upper Pole: ?0.6 Patent Mid Pole: ?0.6 Patent Lower Pole: ?0.6 Patent URINARY BLADDER: Comment: ?Partially distended and unremarkable. Procedure Note Jolly Payne MD - 01/31/2019 Transplant (Signed Final 01/31/2019 02:47pm) PATIENT INFO: ID #: [id number] : [birth year] (68 yrs) Name: ETHEL Gomez MABLE Visit Date:01/31/2019 02:30 pm PERFORMED BY: Performed By: Osmar Dowd RDMS Attending: Jolly Payne MD Referred By: MUNDO YEUNG Location: [place] SERVICE(S) PROVIDED: URTPL - Renal Transplant - Left - [id number] INDICATIONS: h/o kidney transplant in 2016. decreased urine output. COMPARISON: 12/28/15 renal transplant ultrasound RENAL ALLOGRAFT: Size (cm) L: 11.5 Cortical Thickness: Normal Corticomedullary Differention: Normal Echogenicity: Normal Perinephric Fluid/Collections: No collection identified Hydronephrosis: No sonographic evidence Comment: LLQ renal transplant RENAL TRANSPLANT DUPLEX: LEFT Main Renal PSV EDV RIR Waveform Artery (cm/s) (cm/s) Proximal: 31.5 7.9 0.7 Patent Distal: 28.8 8.1 0.7 Patent LEFT Main Renal Waveform Vein Proximal: Patent Mid: Patent Distal: Patent LEFT [place] Iliac Waveform Artery To Anastomos is Proximal: Patent LEFT [place] Iliac Waveform Vein To Anastomos is Proximal: Patent PARENCHYMAL EVALUATION: RIGHT Arc[place] Waveform Artery Upper Pole: 0.6 Patent Mid Pole: 0.6 Patent Lower Pole: 0.6 Patent URINARY BLADDER: Comment: Partially distended and unremarkable. IMPRESSION 1. Left lower quadrant renal transplant shows normal corticomedullary differentiation. No collecting system dilatation or peritransplant collection identified. 2. Normal intrarenal arcuate artery resistive indices. 3. Interrogated main renal artery and vein are patent. Thank you for letting us participate in the care of this patient. For questions regarding this report, please contact the number below. Jolly Payne, Staff Physician Electronically Signed Final Report 01/31/2019 02:47 pm Mundo Yeung MD IMG US GEN ORDERABLE S * XR Chest PA & Lateral (Generic) (01/31/2019 12:40 PM EDT) Anatomical Region Laterality Modality Chest N/A Digital Radiogra phy Impressions 01/31/2019 12:47 PM EDT Small bilateral pleural effusions. No overt pulmonary edema. Thank you for letting us participate in the care of this patient. For questions regarding this report, please contact the number below. ? Narrative 01/31/2019 12:47 PM EDT EXAMINATION: XR CHEST PA AND LATERAL (GENERIC) CLINICAL HISTORY: tachycardia, dizziness TECHNIQUE: Standing PA and lateral chest COMPARISON: 05/26/2016 FINDINGS: There is a slightly better degree of inflation of the lungs overall. There is blunting of the posterior costophrenic angles probably due to a combination of atelectasis and small pleural effusions. Otherwise, the lungs are clear. The cardiomediastinal silhouette appears normal. No pneumothorax or significant bone abnormality is seen. Procedure Note Edinson Woo MD - 01/31/2019 EXAMINATION: XR CHEST PA AND LATERAL (GENERIC) CLINICAL HISTORY: tachycardia, dizziness TECHNIQUE: Standing PA and lateral chest COMPARISON: 05/26/2016 FINDINGS: There is a slightly better degree of inflation of the lungs overall. Thereis blunting of the posterior costophrenic angles probably due to acombination of atelectasis and small pleural effusions. Otherwise, the lungs are clear.The cardiomediastinal silhouette appears normal. No pneumothorax orsignificant bone abnormality is seen. IMPRESSION Small bilateral pleural effusions. No overt pulmonary edema. Thank you for letting us participate in the care of this patient. Forquestions regarding this report, please contact the number below. Mundo Yeung MD IMG DX ORDERABLES * Urinalysis Microscopic Exam (01/31/2019 11:57 AM EDT) RBC, Urine 2 0 - 3 /HPF [facility] WBC, Urine 1 0 - 3 /HPF [facility] Urine specimen (specimen) 01/31/2019 11:57 AM EDT 01/31/2019 12:34 PM EDT Narrative Resulting Agency Comment Spec In Lab Rocky Wong MD URINE ORDERABLES [facility] [place] [address] * Gold Tube HOLD (01/31/2019 11:57 AM EDT) Gold Hold Sample in lab. [facility] Blood specimen (specimen) Venous Draw / Unknown 01/31/2019 11:57 AM EDT 01/31/2019 12:31 PM EDT Rocky Wong MD CHEMISTRY ORDERABLE S [facility] [address] * Blue Tube HOLD (01/31/2019 11:57 AM EDT) Blue Hold Sample in lab. [facility] Blood specimen (specimen) Venous Draw / Unknown 01/31/2019 11:57 AM EDT 01/31/2019 12:32 PM EDT Rocky Wong MD HEMATOLOGY ORDERABL ES [facility] [address] * (ABNORMAL) Differential, Automated (01/31/2019 11:57 AM EDT) Pathologist [facility] Neutrophil % 74.9 % [facility] Neutrophil Absolute 8.74(H) 1.70 - 6.10 x10(3)/mc L [facility] Lymph % 15.8 % [facility] Lymphocytes Abs 1.8 0.9 - 3.2 x10(3)/mc L [facility] Monocyte % 7.6 % [facility] Monocyte Abs 0.9 0.3 - 0.9 x10(3)/mc L [facility] Eos % 1.0 % [facility] Eosinophils Abs 0.1 0.0 - 0.4 x10(3)/mc L [facility] Basophil % 0.4 % [facility] Baso Absolute 0.0 0.0 - 0.1 x10(3)/mc L [facility] Immature Gran % 0.30 % [facility] Comment: Immature granulocytes(IG's)percentage and absolute count will include metamyelocytes, myelocytes, and promyelocytes. Blood smears from CBCs yielding IG's will be scanned manually for concordance. If this scan disagrees with the automated IG or if promyelocytes are noted, a manual differential will be performed. Immature Gran Absolute 0.04 0.00 - 0.04 x10(3)/mc L [facility] Blood specimen (specimen) 01/31/2019 11:57 AM EDT 01/31/2019 12:30 PM EDT Narrative Resulting Agency Comment Spec In Lab Rocky Wong MD HEMATOLOGY ORDERABL ES [facility] [address] * (ABNORMAL) Hemogram (01/31/2019 11:57 AM EDT) White Blood Cell 11.7(H) 4.0 - 9.5 x10(3)/mc L [facility] Red Blood Cell 5.41 4.58 - 5.54 x10(6)/mc L [facility] Hemoglobin 17.0(H) 13.7 - 16.5 gm/dL [facility] Hematocrit 49.8(H) 40.5 - 48.5 % [facility] Mean Cell Volume 92.1 82.9 - 93.[address] [facility] Mean Cell Hemoglobin 31.4 27.5 - 32.[address] [facility] Mean Cell Hemoglobin Concentration 34.1 32.0 - 35.7 gm/dL [facility] Platelet 295 145 - 357 x10(3)/mc L [facility] RDW Standard Deviation 46.0(H) 36.0 - 45.[address] [facility] RDW coefficient of variation 13.9(H) 11.4 - 13.8 % [facility] Mean Platelet Volume 9.9 7.6 - 12.[address] [facility] NRBC% auto 0.0 % [facility] NRBC Absolute 0.000 0.000 - 0.000 x10(3)/ L [facility] Blood specimen (specimen) 01/31/2019 11:57 AM EDT 01/31/2019 12:30 PM EDT Narrative Resulting Agency Comment Spec In Lab Rocky Wong MD HEMATOLOGY ORDERABL ES Performing Organization Address City/[facility]/ZIP Co de Phone Number [facility] [address] * Electrolytes, urine, random (01/31/2019 11:57 AM EDT) Sodium, Urine <20 mmol/L [facility] Potassium, Urine 39 mmol/L [facility] Chloride, Urine <20 mmol/L [facility] Urine specimen (specimen) 01/31/2019 11:57 AM EDT 01/31/2019 12:34 PM EDT Narrative Resulting Agency Comment Spec In Lab Mundo Yeung MD URINE ORDERABLES Performing Organization Address [facility] Co de Phone Number [facility] [place] [address] * (ABNORMAL) Troponin (01/31/2019 11:57 AM EDT) Troponin-T 0.03(H) 0.00 - 0.00 ng/mL [facility] Comment: Called by: GIACOMO, Read back by: Zehra Bartlett, Date/Time:01/31/19 13:15. The 99th percentile for Troponin T is less than 0.01 ng/mL, any detectable cTnT concentration using this assay should be considered elevated. According to the third universal definition of myocardial infarction the following criteria with a clinical presentation consistent with acute myocardial ischemia meets the diagnosis for a myocardial infarction (VA). Detection of a rise and/or fall of cTnT, with at least one value greater than the 99th percentile (> or = 0.01) and with at least one of the following ?? Symptoms of ischemia ?? New or presumed new significant YB-[id number] wave (ST-T) changes or new left bundle [...] additional sample may be indicated. Reference: Third [place] Definition of Myocardial Infarction. Journal of the [place] [employer] 2012;60:1581-98 Blood specimen (specimen) 01/31/2019 11:57 AM EDT 01/31/2019 12:30 PM EDT Narrative Resulting Agency Comment Spec In Lab Mundo Yeung MD CHEMISTRY ORDERABLES [facility] [address] * (ABNORMAL) Urinalysis with reflex Culture (01/31/2019 11:57 AM EDT) Glucose, Urine Dipstick Negative Negative mg/dL [facility] Protein, Urine Dipstick 100(A) Negative mg/dL [facility] Bilirubin, Urine Dipstick Negative Negative mg/dL [facility] Comment: Clinical correlation required for positive Urine Bilirubin results as false positive may occur with some drugs and drug related products. If a false positive is suspected a serum total bilirubin should be considered if clinically indicated. Urobilinogen, Urine Dipstick Normal Normal mg/dL [facility] pH, Urn (dipstick) 5.0 5.0 - 8.0 [facility] Blood, Urine Dipstick Negative Negative mg/dL [facility] Ketone, Urine Dipstick Negative Negative mg/dL [facility] Nitrite, Urine Dipstick Negative Negative [facility] Leukocytes, Urine Dipstick Negative Negative mcL [facility] Appearance, Urine Dipstick Clear Clear [facility] Specific [place] Urine Automated 1.023 1.002 - 1.030 [facility] Color, Urine Dipstick Yellow Yellow [facility] Reflex to Culture No [facility] Urine specimen (specimen) 01/31/2019 11:57 AM EDT 01/31/2019 12:34 PM EDT Narrative Resulting Agency Comment Spec In Lab Mundo Yeung MD URINE ORDERABLES [facility] [place] [address] * (ABNORMAL) Basic Metabolic Panel (non-fasting) (01/31/2019 11:57 AM EDT) Glucose 151 65 - 199 mg/dL [facility] Comment:Diabetes: >=200 mg/d L plus symptoms Blood Urea Nitrogen 29(H) 10 - 20 mg/dL [facility] Creatinine 1.82(H) 0.80 - 1.50 mg/dL [facility] Sodium 136 135 - 145 mmol/L [facility] Potassium 4.1 3.5 - 5.0 mmol/L [facility] Comment: Please note: ??Patients with WBC >100,000 may have falsely elevated Potassium levels. ??For accurate Potassium quantification in these patients send serum separator tube (gold top) for subsequent determinations. ??Contact the Clinical Chemistry Laboratory if there are any questions. Chloride 96(L) 98 - 107 mmol/L [facility] Carbon Dioxide 26 22 - 31 mmol/L [facility] Anion Gap 14 5 - 15 mmol/L [facility] Calcium 10.1 8.5 - 10.5 mg/dL [facility] Est Glomerular Filtration Rate 37(L) >=60 mL/min/1. 73 m?? [facility] Comment: The eGFR was calculated using the CKD-EPI equation. As with all creatinine based estimates of kidney function, eGFR values calculated with the CKD-EPI equation are not accurate in patients with acute kidney failure, extremes of body mass or the acutely ill. [email or web address] eGFR 43(L) >=60 mL/min/1. 73 m?? [facility] Comment: The eGFR was calculated using the CKD-EPI equation. As with all creatinine based estimates of kidney function, eGFR values calculated with the CKD-EPI equation are not accurate in patients with acute kidney failure, extremes of body mass or the acutely ill. [email or web address] Blood specimen (specimen) 01/31/2019 11:57 AM EDT 01/31/2019 12:30 PM EDT Narrative Resulting Agency Comment Spec In Lab Mundo Yueng MD CHEMISTRY ORDERABLES [facility] [place] [address] * EKG 12 Lead (01/31/2019 11:21 AM EDT) Ventricular rate 147 BPM MUSE SYSTEM Atrial Rate 294 BPM MUSE SYSTEM QRS Duration 100 ms MUSE SYSTEM Q-T Interval 334 ms MUSE SYSTEM QTC Calculated (Bezet) 522 ms MUSE SYSTEM Calculated R [place] -58 degrees MUSE SYSTEM Calculated T [place] 68 degrees MUSE SYSTEM INTERPRETATION Atrial flutter with 2:1 A-V conduction Left anterior fascicular block Nonspecific ST and T wave abnormality Abnormal ECG When compared with ECG of 04-NOV-2017 12:43, Significant changes have occurred Confirmed by MD SARA, LARRY ([id number]) on 01/31/2019 5:35:44 PM MUSE SYSTEM 01/31/2019 11:2 1 AM EDT 01/31/2019 5:35 PM EDT Mundo Yeung MD ECG ORDERABLES Performing Organization Address City/[facility]/ZIP Co de Phone Number MUSE SYSTEM documented in this encounter Visit Diagnoses Not on filedocumented in this encounter Admitting Diagnoses Diagnosis Atrial fibrillation with RVR Atrial fibrillation documented in this encounter Administered Medications Inactive Administered Medications - up to 3 most recent administrations Medication Order MAR Action Action Date Dose Rate Site apixaban (ELIQUIS) tablet 5 mg 5 mg, Oral, 2 TIMES DAILY, First dose (after last modification) on Laura 02/03/19 at 1730, Until Discontinued, Anticoagulant, Routine, Restricted anticoagulant, choose the most appropriate response: Approved indication of non-valvular atrial fibrillation Given 02/05/2019 9:29 AM EDT 5 mg Given 02/04/2019 9:59 PM EDT 5 mg Given 02/04/2019 8:27 AM EDT 5 mg ascorbic acid (Vitamin C) tablet 500 mg 500 mg, Oral, 3 TIMES DAILY, First dose on Thu01/31/19 at 2100, Until Discontinued, Routine Given 02/05/2019 3:49 PM EDT 500 mg Given 02/05/2019 9:29 AM EDT 500 mg Given 02/04/2019 9:58 PM EDT 500 mg aspirin chewable tablet 81 mg 81 mg, Oral, DAILY, First dose on Thu02/01/19 at 1045, Until Discontinued, Routine Given 02/05/2019 9:30 AM EDT 81 mg Given 02/04/2019 8:26 AM EDT 81 mg Given 02/03/2019 9:16 AM EDT 81 mg atorvastatin (LIPITOR) tablet 40 mg 40 mg, Oral, EVERY EVENING, First dose on Thu02/01/19 at 1045, Until Discontinued, Routine Given 02/04/2019 5:38 PM EDT 40 mg Given 02/03/2019 5:07 PM EDT 40 mg Given 02/02/2019 8:58 PM EDT 40 mg calciTRIol (ROCALTROL) capsule 0.5 mcg 0.5 mcg, Oral, EVERY OTHER DAY, First dose on Thu01/31/19 at 1930, Until Discontinued, Routine Given 02/04/2019 8:24 AM EDT 0.5 mcg Given 02/02/2019 8:25 AM EDT 0.5 mcg Given 01/31/2019 9:07 PM EDT 0.5 mcg clopidogrel (PLAVIX) tablet 75 mg 75 mg, Oral, DAILY, First dose on Thu02/01/19 at 0900, Until Discontinued, Routine Given 02/05/2019 9:29 AM EDT 75 mg Given 02/04/2019 8:25 AM EDT 75 mg Given 02/03/2019 9:16 AM EDT 75 mg dextrose 50% intravenous solution 25-50 mL 25-50 mL (12.5-25 g), Intravenous, EVERY 1 HOUR PRN, Starting on Thu01/31/19 at 1843, Until Thu02/05/19 at 1804, Low blood sugar, For BG 50-70 mg/dL: [...] the duration of the active insulin., Routine glipiZIDE (GLUCOTROL XL) CR tablet 5 mg 5 mg, Oral, DAILY WITH BREAKFAST, First dose on Thu02/01/19 at 0800, Until Discontinued, DO NOT CRUSH OR OPEN Consider holding dose if patient is not eating. , Routine Given 02/05/2019 9:36 AM EDT 5 mg Given 02/04/2019 8:23 AM EDT 5 mg Given 02/03/2019 9:23 AM EDT 5 mg glucagon (human recombinant) injection SolR 1 mg 1 mg, Intramuscular, EVERY 1 HOUR PRN, Starting on 01/31/19 at 1843, Until 02/05/19 at 1804, Low blood sugar, For BG 50-70 mg/dL: [...] Buccal, EVERY 30 MIN PRN, Starting on Thu01/31/19 at 1843, Until 02/05/19 at 1804, Low blood sugar, For BG 50-70 mg/dL: [...] weight of tube = 37.5 grams., Routine heparin (porcine) injection ONCE PRN, Starting on Thu02/02/19 at 1828, Until Thu02/02/19 at 2018, Cath (Intra-Procedure), Routine Given 02/02/2019 6:28 PM EDT 7,000 Units insulin lispro (HumaLOG) VIAL injection 1-4 Units 1-4 Units, Subcutaneous, 3 TIMES DAILY BEFORE MEALS, First dose on Thu01/31/19 at 1900, Until Discontinued, CORRECTION BOLUS Sensitive to insulin [...] specifically told to do so., Routine Given 02/05/2019 12:10 PM EDT 2 Units Given 02/04/2019 5:39 PM EDT 1 Units Given 02/04/2019 12:12 PM EDT 1 Units iohexol (OMNIPAQUE) 350 mg/mL solution ONCE PRN, Starting on Thu02/02/19 at 1857, Until Thu02/02/19 at 2018, Cath (Intra-Procedure), Routine Given 02/02/2019 6:57 PM EDT 35 mLs ipratropium-albuterol (DUONEB) 0.5 mg-3 mg(2.5 mg base)/3 mL nebulizer solution 3 mL 3 mL, Nebulization, 4 TIMES DAILY PRN, Starting on Laura 02/03/19 at 0810, Until 02/05/19 at 1804, Wheezing, Routine levothyroxine (SYNTHROID) tablet 137 mcg 137 mcg, Oral, DAILY, First dose on Thu02/01/19 at 0900, Until Discontinued, Routine Given 02/05/2019 9:28 AM EDT 137 mcg Given 02/04/2019 8:26 AM EDT 137 mcg Given 02/03/2019 9:49 AM EDT 137 mcg metoprolol succinate (TOPROL-XL) XL tablet 25 mg 25 mg, Oral, DAILY, First dose on Thu02/05/19 at 1200, Until Discontinued, DO NOT CRUSH OR OPEN, Routine Given 02/05/2019 12:12 PM EDT 25 mg mycophenolate (CELLCEPT) capsule 250 mg 250 mg, Oral, 2 TIMES DAILY, First dose on Thu01/31/19 at 2100, Until Discontinued, DO NOT CRUSH OR OPEN Administer to patient on empty stomach (1 hour before or two hours after a meal)., Routine Given 02/05/2019 9:36 AM EDT 250 mg Given 02/04/2019 9:59 PM EDT 250 mg Given 02/04/2019 8:23 AM EDT 250 mg nitroGLYcerin (NITROSTAT) SL tablet 0.4 mg 0.4 mg, Sublingual, EVERY 5 MIN PRN, Chest pain, Starting on Thu01/31/19 at 1929, Until 02/05/19 at 1804, SL nitroglycerin may be repeated every 5 minutes as needed up to 3 doses nitroGLYcerin 100 mcg/mL intracoronary dilution ONCE PRN, Starting on Thu02/02/19 at 1815, Until Thu02/02/19 at 2018, Cath (Intra-Procedure), Routine Given 02/02/2019 6:15 PM EDT 150 mcg pantoprazole (PROTONIX) tablet 40 mg 40 mg, Oral, DAILY, First dose on Thu01/31/19 at 1641, Until Discontinued, DO NOT CRUSH OR OPEN Given 02/05/2019 9:28 AM EDT 40 mg Given 02/04/2019 8:25 AM EDT 40 mg Given 02/03/2019 9:16 AM EDT 40 mg potassium phosphate (monobasic) (K-PHOS) tablet 1,000 mg 1,000 mg, Oral, 2 TIMES DAILY, First dose on Thu02/01/19 at 0900, Until Discontinued, Dissolve tablets in 6-8 oz of water; for best results, soak tablets in water for 2-5 minutes, then stir and give to patient., Routine Given 02/05/2019 9:29 AM EDT 1,000 mg Given 02/04/2019 9:58 PM EDT 1,000 mg Given 02/04/2019 8:24 AM EDT 1,000 mg prochlorperazine (COMPAZINE) injection 5 mg 5 mg, Intravenous, EVERY 4 HOURS PRN, Starting on Thu01/31/19 at 1856, Until 02/05/19 at 1804, Nausea, Vomiting, Routine Given 01/31/2019 7:37 PM EDT 5 mg sodium chloride 0.9 % (flush) flush 5 mL 5 mL, Intravenous, 2 TIMES DAILY, First dose on Thu01/31/19 at 2100, Until Discontinued, Routine Given 02/05/2019 9:27 AM EDT 5 mLs Given 02/04/2019 10:02 PM EDT 5 mLs Given 02/04/2019 9:00 AM EDT 5 mLs tacrolimus (PROGRAF) capsule 1 mg 1 mg, Oral, NIGHTLY, First dose on Thu01/31/19 at 2100, Until Discontinued, Routine Given 02/04/2019 10:01 PM EDT 1 mg Given 02/03/2019 8:40 PM EDT 1 mg Given 02/02/2019 9:21 PM EDT 1 mg tacrolimus (PROGRAF) capsule 2 mg 2 mg, Oral, EVERY MORNING, First dose on Thu02/01/19 at 0700, Until Discontinued, Routine Given 02/05/2019 6:08 AM EDT 2 mg Given 02/04/2019 6:12 AM EDT 2 mg Given 02/03/2019 9:17 AM EDT 2 mg tamsulosin (FLOMAX) ER capsule 0.4 mg 0.4 mg, Oral, DAILY, First dose on Thu01/31/19 at 1930, Until Discontinued, DO NOT CRUSH OR OPEN, Routine Given 02/05/2019 9:27 AM EDT 0.4 mg Given 02/04/2019 8:26 AM EDT 0.4 mg Given 02/03/2019 9:16 AM EDT 0.4 mg verapamil (ISOPTIN) injection ONCE PRN, Starting on Thu02/02/19 at 1816, Until Thu02/02/19 at 2018, Administer over 2 Minutes, Cath (Intra-Procedure) Given 02/02/2019 6:16 PM EDT 2.5 mg documented in this encounter Active and Recently Administered Medications Times are shown in EDT. Scheduled Medication Order 02/03/2019 02/04/2019 02/05/2019 apixaban (ELIQUIS) tablet 5 mg 5 mg, Oral, 2 TIMES DAILY, First dose (after last modification) on Thu02/03/19 at 1730, Until Discontinued, Anticoagulant, Routine, Restricted anticoagulant, choose the most appropriate response: Approved indication of non-valvular atrial fibrillation 1748 (Given - Provider: Emmy Purdy RN) 3065 (Given - Provider: Emmy Purdy RN)735 (Given - Provider: Jovanna Abrams RN) 0929 (Given - Provider: Shannan Aguillon RN) ascorbic acid (Vitamin C) tablet 500 mg 500 mg, Oral, 3 TIMES DAILY, First dose on Thu01/31/19 at 2100, Until Discontinued, Routine 0918 (Given - Provider: Barron Epstein, RN)170 (Given - Provider: Emmy Purdy, JADEN)204 (Given - Provider: Betzaida Sparks RN) 08 (Given - Provider: Emmy Purdy, JADEN)173 (Given - Provider: Emmy Purdy, JADEN)215 (Given - Provider: Jovanna Abrams, JADEN) 09 (Given - Provider: Shannan Aguillon, RN)1549 (Given - Provider: Shannan Aguillon, RN) aspirin chewable tablet 81 mg 81 mg, Oral, DAILY, First dose on Thu02/01/19 at 1045, Until Discontinued, Routine 09 (Given - Provider: Barron Epstein RN) 08 (Given - Provider: Emmy Purdy RN) 0930 (Given - Provider: Shannan Aguillon, JADEN) atorvastatin (LIPITOR) tablet 40 mg 40 mg, Oral, EVERY EVENING, First dose on Thu02/01/19 at 1045, Until Discontinued, Routine 170 (Given - Provider: Emmy Purdy RN) 173 (Given - Provider: Emmy Purdy RN) calciTRIol (ROCALTROL) capsule 0.5 mcg 0.5 mcg, Oral, EVERY OTHER DAY, First dose on Thu01/31/19 at 1930, Until Discontinued, Routine 0824 (Given - Provider: Emmy Purdy RN) clopidogrel (PLAVIX) tablet 75 mg 75 mg, Oral, DAILY, First dose on Thu02/01/19 at 0900, Until Discontinued, Routine 09 (Given - Provider: Barron Epstein RN) 08 (Given - Provider: Emmy Purdy RN) 09 (Given - Provider: Shannan Aguillon RN) furosemide (LASIX) injection 20 mg (COMPLETED) 20 mg, Intravenous, ONCE, 1 dose, On Thu02/04/19 at 1745 1738 (Given - Provider: Emmy Purdy RN) glipiZIDE (GLUCOTROL XL) CR tablet 5 mg 5 mg, Oral, DAILY WITH BREAKFAST, First dose on Thu02/01/19 at 0800, Until Discontinued, DO NOT CRUSH OR OPEN Consider holding dose if patient is not eating. , Routine 0923 (Given - Provider: Barron Epstein RN) 0823 (Given - Provider: Emmy Purdy, JADEN) 0936 (Given - Provider: Shannan Aguillon RN) insulin lispro (HumaLOG) VIAL injection 1-4 Units(Linked Group 1) 1-4 Units, Subcutaneous, 3 TIMES DAILY BEFORE MEALS, First dose on Thu01/31/19 at 1900, Until Discontinued, CORRECTION BOLUS Sensitive to insulin [...] unless specifically told to do so., Routine 0730 (Not Given - Provider: Barron Epstein RN - Reason: Order parameters not met)1151 (Given - Provider: Barron Epstein RN)1711 (Given - Provider: Emmy Purdy RN) 0703 (Given - Provider: Betzaida Sparks RN - Comment: 152)1212 (Given - Provider: Emmy Purdy, JADEN)1739 (Given - Provider: Emmy Purdy, JADEN) 0730 (Not Given - Provider: Shannan Aguillon RN - Reason: Order parameters not met)1210 (Given - Provider: Shannan Aguillon RN) ipratropium-albuterol (DUONEB) 0.5 mg-3 mg(2.5 mg base)/3 mL nebulizer solution 3 mL (COMPLETED) 3 mL, Nebulization, ONCE, 1 dose, On Thu02/03/19 at 0245, STAT 0245 (Given - Provider: Bryn Crowe RN) levothyroxine (SYNTHROID) tablet 137 mcg 137 mcg, Oral, DAILY, First dose on Thu02/01/19 at 0900, Until Discontinued, Routine 0949 (Given - Provider: Barron Epstein RN) 0826 (Given - Provider: Emmy Purdy RN) 0928 (Given - Provider: Shannan Aguillon, RN) metoprolol succinate (TOPROL-XL) XL tablet 25 mg 25 mg, Oral, DAILY, First dose on Thu02/05/19 at 1200, Until Discontinued, DO NOT CRUSH OR OPEN, Routine 1212 (Given - Provider: Shannan Aguillon, RN) metoprolol tartrate (LOPRESSOR) tablet 12.5 mg (CANCELED) 12.5 mg, Oral, EVERY 6 HOURS SCHEDULED, First dose on Thu01/31/19 at 1800, Until Discontinued, Hold for SBP <100, HR <55, Routine 0042 (Given - Provider: Bryn Crowe RN)0600 (Given - Provider: Bryn Crowe RN)1150 (Given - Provider: Barron Epstein, JADEN)1708 (Given - Provider: Emmy Purdy, JADEN)2319 (Given - Provider: Betzaida Sparks RN) 0612 (Not Given - Provider: Betzaida Sparks RN - Reason: Order parameters not met - Comment: HR <55)1212 (Given - Provider: Emmy Purdy RN)1749 (Given - Provider: Emmy Purdy RN)2337 (Given - Provider: Jovanna Abrams, JADEN) 0607 (Given - Provider: Jovanna Abrams, JADEN) mycophenolate (CELLCEPT) capsule 250 mg 250 mg, Oral, 2 TIMES DAILY, First dose on Thu01/31/19 at 2100, Until Discontinued, DO NOT CRUSH OR OPEN Administer to patient on empty stomach (1 hour before or two hours after a meal)., Routine 0920 (Given - Provider: Barron Epstein, JADEN)2040 (Given - Provider: Betzaida Sparks, JADEN) 0823 (Given - Provider: Emmy Purdy RN)2159 (Given - Provider: Jovanna Abrams, JADEN) 0936 (Given - Provider: Shannan Aguillon, RN) pantoprazole (PROTONIX) tablet 40 mg 40 mg, Oral, DAILY, First dose on Thu01/31/19 at 1641, Until Discontinued, DO NOT CRUSH OR OPEN 0916 (Given - Provider: Barron Epstein, RN) 0825 (Given - Provider: Emmy Purdy, RN) 09 (Given - Provider: Shannan Aguillon, RN) potassium chloride (K-DUR/KLOR-CON) extended release tablet 40 mEq (COMPLETED) 40 mEq, Oral, ONCE, 1 dose, On Laura 02/03/19 at 1400, 20 mEq tablet may be dissolved in water for administration, Routine 1319 (Given - Provider: Emmy Purdy RN) potassium phosphate (monobasic) (K-PHOS) tablet 1,000 mg 1,000 mg, Oral, 2 TIMES DAILY, First dose on Thu02/01/19 at 0900, Until Discontinued, Dissolve tablets in 6-8 oz of water; for best results, soak tablets in water for 2-5 minutes, then stir and give to patient., Routine 919 (Given - Provider: Barron Epstein, RN)2039 (Given - Provider: Betzaida Sparks RN) 823 (Given - Provider: Emmy Purdy, JADEN)2157 (Given - Provider: Jovanna Abrams, RN) 928 (Given - Provider: Shannan Aguillon, RN) sodium chloride 0.9 % (flush) flush 5 mL 5 mL, Intravenous, 2 TIMES DAILY, First dose on Thu01/31/19 at 2100, Until Discontinued, Routine 0900 (Not Given - Provider: Barron Epstein RN - Reason: Contraindicated)2040 (Given - Provider: Betzaida Sparks RN) 899 (Given - Provider: Emmy Purdy, JADEN)2201 (Given - Provider: Jovanna Abrams, JADEN) 926 (Given - Provider: Shannan Aguillon, RN) tacrolimus (PROGRAF) capsule 1 mg(Linked Group 2) 1 mg, Oral, NIGHTLY, First dose on Thu01/31/19 at 2100, Until Discontinued, Routine 2039 (Given - Provider: Betzaida Sparks RN) 2200 (Given - Provider: Jovanna Abrams, JADEN) tacrolimus (PROGRAF) capsule 2 mg(Linked Group 2) 2 mg, Oral, EVERY MORNING, First dose on Thu02/01/19 at 0700, Until Discontinued, Routine 0917 (Given - Provider: Barron Epstein, RN) 0612 (Given - Provider: Betzaida Sparks, RN) 0608 (Given - Provider: Jovanna Abrams, JADEN) tamsulosin (FLOMAX) ER capsule 0.4 mg 0.4 mg, Oral, DAILY, First dose on Thu01/31/19 at 1930, Until Discontinued, DO NOT CRUSH OR OPEN, Routine 0916 (Given - Provider: Barron Epstein, RN) 0826 (Given - Provider: Emmy Purdy, RN) 0927 (Given - Provider: Shannan Aguillon RN) Continuous Medication Order 02/03/2019 02/04/2019 02/05/2019 furosemide (LASIX) 100 mg in sodium chloride 0.9% 100 mL infusion (CANCELED) 10 mg/hr (10 mL/hr), Intravenous, CONTINUOUS, Starting on Laura 02/03/19 at 1630, Until Thu02/04/19 at 1250, Routine 1833 (New Bag - Provider: Emmy Purdy, JADEN) 0612 (New Bag - Provider: Betzaida Sparks, RN)1344 (Stopped - Provider: Emmy Purdy, JADEN) heparin 25,000 units in dextrose 5% 500 mL infusion (CANCELED)(Linked Group 3) 0-5,000 Units/hr (0-100 mL/hr), Intravenous, CONTINUOUS, Starting on Thu01/31/19 at 1822, Until Laura 02/03/19 at 1809, BEGIN infusion at 1,000 units per hr (12 units/kg/hr). MAX INITIAL infusion rate is 1,000 units/hr. Target Heparin UFH Level (anti-Xa activity) = 0.3 - 0.7 IU/mL Start adjustment schedule 6 hours after starting infusion. If Heparin UFH Level is: - less than 0.1 IU/mL, administer PRN bolus and increase rate by 400 units per hr (4 units/kg/hr) - 0.1 - 0.29 IU/mL, administer PRN bolus and increase rate by 200 units per hr (2 units/kg/hr) - 0.3 - 0.7 IU/mL, No Change - 0.71 - 0.85 IU/mL, decrease rate by 100 units per hr (1 units/kg/hr) - 0.86 - 1.05 IU/mL, stop infusion for 30 minutes, then decrease rate by 200 units per hr (2 units/kg/hr) - Greater than 1.05 IU/mL, stop infusion for 60 minutes, then decrease rate by 300 units per hour (3 units/kg/hr) Repeat Heparin UFH Level 6 hours after initiating heparin. Then 6 hours after each dose adjustment. When 2 consecutive Heparin UFH Level within target range of 0.3 - 0.7 IU/mL, change Heparin UFH Level to once every 24 hours with A.M. labs while on heparin. RN to order required Heparin UFH Level - Per Protocol, Routine, Indication: ACS (STEMI vs NSTEMI vs UA) 0232 (New Bag - Provider: Bryn Crowe RN)1449 (New Bag - Provider: Emmy Purdy RN)1807 (Rate/Dose Change - Provider: Emmy Purdy RN - Comment: no change UFH .31)1832 (Stopped - Provider: Emmy Purdy RN - Comment: per md order) PRN Medication Order 02/03/2019 02/04/2019 02/05/2019 acetaminophen (TYLENOL) tablet 1,000 mg 1,000 mg, Oral, EVERY 8 HOURS PRN, Starting on Thu01/31/19 at 1853, Until 02/05/19 at 1804, Pain, Maximum dose of acetaminophen is 4000 mg from all sources in 24 hours., Routine dextrose 50% intravenous solution 25-50 mL(Linked Group 4) 25-50 mL (12.5-25 g), Intravenous, EVERY 1 HOUR PRN, Starting on Thu01/31/19 at 1843, Until 02/05/19 at 1804, Low blood sugar, For BG 50-70 mg/dL: [...] mg(Linked Group 4) 1 mg, Intramuscular, EVERY 1 HOUR PRN, Starting on Thu01/31/19 at 1843, Until 02/05/19 at 1804, Low blood sugar, For BG 50-70 mg/dL: [...] Routine glucose (GLUTOSE) 40% oral gel(Linked Group 4) 15-30 g, Buccal, EVERY 30 MIN PRN, Starting on Thu01/31/19 at 1843, Until 02/05/19 at 1804, Low blood sugar, For BG 50-70 mg/dL: [...] weight of tube = 37.5 grams., Routine ipratropium-albuterol (DUONEB) 0.5 mg-3 mg(2.5 mg base)/3 mL nebulizer solution 3 mL 3 mL, Nebulization, 4 TIMES DAILY PRN, Starting on Thu02/03/19 at 0810, Until 02/05/19 at 1804, Wheezing, Routine lidocaine (XYLOCAINE) 10 mg/mL (1 %) injection 3 mg 3 mg (0.3 mL), Subcutaneous, ONCE PRN, 1 dose, Starting on Thu01/31/19 at 1843, Until 02/05/19 at 1804, for discomfort with PIV insertion, Routine nitroGLYcerin (NITROSTAT) SL tablet 0.4 mg 0.4 mg, Sublingual, EVERY 5 MIN PRN, Chest pain, Starting on Thu01/31/19 at 1929, Until 02/05/19 at 1804, SL nitroglycerin may be repeated every 5 minutes as needed up to 3 doses polyethylene glycol (MIRALAX) packet 17 g 17 g, Oral, DAILY PRN, Starting on Thu01/31/19 at 1853, Until 02/05/19 at 1804, Constipation, Routine prochlorperazine (COMPAZINE) injection 5 mg 5 mg, Intravenous, EVERY 4 HOURS PRN, Starting on Thu01/31/19 at 1856, Until 02/05/19 at 1804, Nausea, Vomiting, Routine sodium chloride 0.9 % (flush) flush 5-20 mL 5-20 mL, Intravenous, EVERY 1 MIN PRN, Starting on Thu01/31/19 at 1843, Until 02/05/19 at 1804, flush, Flush pertains to all indwelling lines. Flush per protocol found in the job aid using the link provided on this medication record., Routine Linked Groups Order Group 1: POCT Fingerstick Glucose (CANCELED) Routine, 4 TIMES DAILY BEFORE MEALS & AT BEDTIME, First occurrence on Thu01/31/19 at 2200, Until Specified, Consider choosing FOUR TIMES A DAY BEFORE MEALS AND AT BEDTIME as frequency for: Patients who have good hypoglycemia awareness: -Patients who are eating meals during the day and sleeping at night -Patient who are otherwise stable And insulin lispro (HumaLOG) VIAL injection 1-4 UnitsJump to med 1-4 Units, Subcutaneous, 3 TIMES DAILY BEFORE MEALS, First dose on Thu01/31/19 at 1900, Until Discontinued, CORRECTION BOLUS Sensitive to insulin [...] told to do so., Routine Group 2: tacrolimus (PROGRAF) capsule 2 mgJump to med 2 mg, Oral, EVERY MORNING, First dose on Thu02/01/19 at 0700, Until Discontinued, Routine And tacrolimus (PROGRAF) capsule 1 mgJump to med 1 mg, Oral, NIGHTLY, First dose on Thu01/31/19 at 2100, Until Discontinued, Routine Group 3: heparin (porcine) injection 0-4,000 Units (CANCELED) 0-4,000 Units, Intravenous, BOLUS PER HEPARIN PROTOCOL, Starting on Thu01/31/19 at 1819, Until Laura 02/03/19 at 1809, Per Protocol, START ADJUSTMENT SCHEDULE 6 HOURS AFTER STARTING INFUSION Heparin UFH Level between 0.1 - 0.29 IU/mL: Bolus 2,000 units Heparin UFH Level less than 0.1 IU/mL: Bolus 4,000 units, Routine And heparin 25,000 units in dextrose 5% 500 mL infusion (CANCELED)Jump to med 0-5,000 Units/hr (0-100 mL/hr), Intravenous, CONTINUOUS, Starting on Thu01/31/19 at 1822, Until Laura 02/03/19 at 1809, BEGIN infusion at 1,000 units per hr (12 units/kg/hr). MAX INITIAL infusion rate is 1,000 units/hr. Target Heparin UFH Level (anti-Xa activity) = 0.3 - 0.7 IU/mL Start adjustment schedule 6 hours after starting infusion. If Heparin UFH Level is: - less than 0.1 IU/mL, administer PRN bolus and increase rate by 400 units per hr (4 units/kg/hr) - 0.1 - 0.29 IU/mL, administer PRN bolus and increase rate by 200 units per hr (2 units/kg/hr) - 0.3 - 0.7 IU/mL, No Change - 0.71 - 0.85 IU/mL, decrease rate by 100 units per hr (1 units/kg/hr) - 0.86 - 1.05 IU/mL, stop infusion for 30 minutes, then decrease rate by 200 units per hr (2 units/kg/hr) - Greater than 1.05 IU/mL, stop infusion for 60 minutes, then decrease rate by 300 units per hour (3 units/kg/hr) Repeat Heparin UFH Level 6 hours after initiating heparin. Then 6 hours after each dose adjustment. When 2 consecutive Heparin UFH Level within target range of 0.3 - 0.7 IU/mL, change Heparin UFH Level to once every 24 hours with A.M. labs while on heparin. RN to order required Heparin UFH Level - Per Protocol, Routine, Indication: ACS (STEMI vs NSTEMI vs UA) Group 4: glucose (GLUTOSE) 40% oral gelJump to med 15-30 g, Buccal, EVERY 30 MIN PRN, Starting on Thu01/31/19 at 1843, Until 02/05/19 at 1804, Low blood sugar, For BG 50-70 mg/dL: [...] Intravenous, EVERY 1 HOUR PRN, Starting on Thu01/31/19 at 1843, Until 02/05/19 at 1804, Low blood sugar, For BG 50-70 mg/dL: [...] Intramuscular, EVERY 1 HOUR PRN, Starting on 01/31/19 at 1843, Until 02/05/19 at 1804, Low blood sugar, For BG 50-70 mg/dL: [...] Routine documented in this encounter Care Teams Department Head Relationship Specialty Start Date End Date Urbano Denis DO [address] [place] [address] PCP - General 09/03/12 03/17/22 Ruchi Valles RN Nurse Clinic Transplant Surgery 07/30/15 documented as of this encounter
--- OUTSIDE RECORDS SUMMARY | 2024-02-14 11:23 | XMS_ITS | Encounter Summary ---
Author Organization [facility] Address [place] [address] Care Team Providers Care Single Spindle Screw Machine Operator Name Role Phone AdeelUrbano toscano Primary Care Provider Reason for Visit * Reason Onset Date Comments Medication Refill 01/13/2019 Encounter Details Date Type Department Care Team (Late st Contact Info) Description 01/13/2019 Refill [place] [address] Tal Eagle MD [facility] [place] [address] Social History Tobacco Use Types Packs/Day Years [...] AM EDT Hospital Encounter Non[place] [address] Arrived documented as of this encounter Goals [...] filedocumented in this encounter Care Teams Single Spindle Screw Machine Operator Relationship Specialty Start Date End Date Urbano Denis DO [address] [place] [address] PCP - General 09/03/12 03/17/22 Ruchi Valles RN Nurse Clinic Transplant Surgery 07/30/15 documented as of this encounter
--- OUTSIDE RECORDS SUMMARY | 2024-02-14 11:23 | XMS_ITS | Encounter Summary ---
Author Organization [facility] Address [facility] [place] [address] Care Team Providers Care Deputy Fire Marshal Name Role Phone AdeelUrbano toscano Primary Care Provider Reason for Visit * Reason Onset Date Comments Medication Refill 01/12/2019 Encounter Details Date Type Department Care Team (Late st Contact Info) Description 01/12/2019 Refill [place] [address] Tal Eagle MD [facility] [place] [address] Social History Tobacco Use Types Packs/Day Years [...] AM EDT Hospital Encounter Non[place] [address] Arrived documented as of this encounter Goals [...] on filedocumented in this encounter Care Teams Deputy Fire Marshal Relationship Specialty Start Date End Date Urbano Denis DO [address] [place] [address] PCP - General 09/03/12 03/17/22 Ruchi Valles RN Nurse Clinic Transplant Surgery 07/30/15 documented as of this encounter
--- OUTSIDE RECORDS SUMMARY | 2024-02-14 11:23 | XMS_ITS | Encounter Summary ---
Author Organization [facility] [place] Address [facility] [place] [address] Care Team Providers Care Director Of Strategic Sales Name Role Phone AdeelUrbano boland Primary Care Provider + [phone] Reason for Visit * Reason Onset Date Comments Medication Refill 01/18/2019 Encounter Details Date Type Department Care Team (Late st Contact Info) Description 01/18/2019 Refill [place] [address] Tal Eagle MD [facility] [address] [place] [address] Social History Tobacco Use Types Packs/Day Years [...] encounter Miscellaneous Notes * Telephone Encounter - Tim Miles LPN - 01/18/2019 9:30 AM EDT Pharmacy called to verify pt dosage for Mycophenolate 250 mg. Recently reordered but pharmacy did not have an order in system on their end. Gave verbal order to confirm dosage and Rx. No print to reflect order starting from today. Requested Prescriptions Pending Prescriptions Disp Refills ??? mycophenolate (CELLCEPT) 250 mg Capsule 60 capsule 8 Sig: Take 1 capsule by mouth 2 times daily. Kidney Transplant ICD Code Z94.0 documented in this encounter Plan of Treatment Upcoming Encounters Date Type Department Care Team (Late st Contact Info) Description 04/15/2024 10:00 AM EDT Hospital Encounter Non-Invasive [place] [address] Arrived documented as of this encounter Goals [...] filedocumented in this encounter Care Teams Director Of Strategic Sales Relationship Specialty Start Date End Date Urbano Denis DO [address] [place] [address] PCP - General 09/03/12 03/17/22 Ruchi Valles RN Nurse Clinic Transplant Surgery 07/30/15 documented as of this encounter
--- OUTSIDE RECORDS SUMMARY | 2024-02-14 11:23 | XMS_ITS | Encounter Summary ---
Author Organization [place] [address] Care Team Providers Care Grinder Outside Diameter Name Role Phone Urbano Denis DO Primary Care Provider [phone] Reason for Visit * Auth/Cert Specialty Diagnoses / Procedures Referred By Humberto flor Referred To Contact Diagnoses Paroxysmal atrial fibrillation Atrial fibrillation with RVR Referral ID Status Reason Start Date Expiration Date Visits Re quested Visits Authorized [id number] 1 1 Encounter Details Date Type Department Care Team (Late st Contact Info) Description 01/31/2019 10:20 AM EDT Office Visit [place] [address] Tal Eagle MD [facility] [place] [address] Hypotensive episode; H/O kidney transplant Social History Tobacco Use [...] as of this encounter Progress Notes * Jeremiah Betancur RN - 01/31/2019 10:20 AM EDT Pt sent to ED by Power Reactor Supervisor. Symptomatic with c/o of dizziness when standing and feeling loopy. Pt was triaged at [address] Eagle available to consult. Transplant labscompleted this morning prior to office visit. * Tal Eagle MD - 01/31/2019 10:20 AM EDT Patient became delirious, faint-like and was taken to ED for assessment. Had called Daily over the weekend when noted decreased UOP with poor intake. Patient has know urologic maladies.Will make an assessment in the ED. See eDH notes. documented in this encounter Plan of Treatment Upcoming Encounters Date Type Department Care Team (Late st Contact Info) Description 04/15/2024 10:00 AM EDT Hospital Encounter Non-Invasive [place] [address] Arrived documented as of this encounter Goals Goal Patient Goal Type Associated Problems Recent Progress Patient-Stated? Author DH Home Medication Compliance and Understanding Patient Facing Action Plan On track( 017 10:41 AM EDT) No Selena Cisneros, [facility] Note: Patient Goal: Clear hepatitis C Timeframe to meet goal: within 12 weeks of therapy documented as of this encounter Visit Diagnoses Diagnosis Hypotensive episode Hypotension, unspecified H/O kidney transplant Kidney replaced by transplant documented in this encounter Care Teams Grinder Outside Diameter Relationship Specialty Start Date End Date Urbano Denis DO [address] [place] [address] PCP - General 09/03/12 03/17/22 Ruchi Valles RN Nurse Clinic Transplant Surgery 07/30/15 documented as of this encounter
--- OUTSIDE RECORDS SUMMARY | 2024-02-14 11:23 | XMS_ITS | Encounter Summary ---
Author Organization [facility] [place] [address] Care Team Providers Care Ship Liner Name Role Phone AdeelUrbano toscano Primary Care Provider Encounter Details Date Type Department Care Team (Late st Contact Info) Description 01/31/2019 Orders Only [place] [phone] Jeremiah Betancur RN Kidney replaced by transplant Social History Tobacco Use Types Packs/Day [...] AM EDT Hospital Encounter Non-[place] [address] Arrived Pending Results Name Type Priority Associated Diagnoses Date /Time EKG 12 Lead ECG Routine 01/31/2019 6: 31 PM EDT documented as of this encounter Goals Goal Patient Goal Type Associated Problems Recent Progress Patient-Stated? Author [facility] Medication Compliance and Understanding Patient Facing Action Plan On track( 017 10:41 AM EDT) No Selena Cisneros, [facility] Note: Patient Goal: Clear hepatitis C Timeframe to meet goal: within 12 weeks of therapy documented as of this encounter Procedures Procedure Name Priority Date/Time Associated Diagnosis Comments EKG 12-LEAD Routine 01/31/2019 6:31 PM EDT EKG 12-LEAD Routine 01/31/2019 6:31 PM EDT documented in this encounter Results * EKG 12 Lead (01/31/2019 6:31 PM EDT) Ventricular rate 76 BPM MUSE SYSTEM Atrial Rate 76 BPM MUSE SYSTEM P-R Interval 214 ms MUSE SYSTEM QRS Duration 102 ms MUSE SYSTEM Q-T Interval 438 ms MUSE SYSTEM QTC Calculated (Bezet) 492 ms MUSE SYSTEM Calculated P Enola 49 degrees MUSE SYSTEM Calculated R En[place] -58 degrees MUSE SYSTEM Calculated T En[place] 151 degrees MUSE SYSTEM INTERPRETATION Sinus rhythm with 1st degree A-V block with frequent Premature atrial complexes in a pattern of bigeminy Left axis deviation ST & T wave abnormality, consider anterolateral ischemia Prolonged QT Abnormal ECG When compared with ECG of 31-JAN-2019 16:28, (unconfirmed) No significant change was found Confirmed by MD Jonatan, Guille Almonte ([id number]) on 02/01/2019 3:55:38 PM MUSE SYSTEM 01/31/2019 6:31 PM EDT 02/01/2019 3:55 PM EDT Unknown ECG ORDERABLES MUSE SYSTEM * Tacrolimus level (01/31/2019 9:46 AM EDT) Tacrolimus 6.7 ng/mL [facility] Comment: Trough therapeutic: ??5-15 ng/mL Performed by ultra-performance liquid chromatography tandem mass spectrometry (UPLCMS/MS). This test was developed and its performance characteristics determined by [facility]. It has not been cleared or approved by the FDA. The laboratory is regulated under CLIA as qualified to perform high-complexity testing. This test is used for clinical purposes. It should not be regarded as investigational or for research. Blood specimen (specimen) 01/31/2019 9:46 AM EDT 01/31/2019 10:17 AM EDT Narrative Resulting Agency Comment Spec In Lab Tal Eagle MD CHEMISTRY ORDERAB LES [facility] [place] [address] * (ABNORMAL) Comprehensive metabolic panel (non-fasting) (01/31/2019 9:46 AM EDT) Glucose 175 65 - 199 mg/dL [facility] Comment:Diabetes: >=200 mg/d L plus symptoms Blood Urea Nitrogen 30(H) 10 - 20 mg/dL [facility] Creatinine 1.99(H) 0.80 - 1.50 mg/dL [facility] Sodium 136 135 - 145 mmol/L [facility] Potassium 4.5 3.5 - 5.0 mmol/L [facility] Comment: Please note: ??Patients with WBC >100,000 may have falsely elevated Potassium levels. ??For accurate Potassium quantification in these patients send serum separator tube (gold top) for subsequent determinations. ??Contact the Clinical Chemistry Laboratory if there are any questions. Chloride 96(L) 98 - 107 mmol/L [facility] Carbon Dioxide 26 22 - 31 mmol/L [facility] Anion Gap 14 5 - 15 mmol/L [facility] Calcium 10.3 8.5 - 10.5 mg/dL [facility] Protein, Total 7.3 6.1 - 8.0 gm/dL [facility] Albumin 4.3 3.2 - 5.2 gm/dL [facility] Aspartate Aminotransferase 19 0 - 39 unit/L [facility] Alanine Aminotransferase 22 0 - 55 unit/L [facility] Alkaline Phosphatase 68 40 - 130 unit/L [facility] Bilirubin, Total 2.8(H) 0.2 - 1.3 mg/dL [facility] Est Glomerular Filtration Rate 33(L) >=60 mL/min/1. 73 m?? [facility] Comment: The eGFR was calculated using the CKD-EPI equation. As with all creatinine based estimates of kidney function, eGFR values calculated with the CKD-EPI equation are not accurate in patients with acute kidney failure, extremes of body mass or the acutely ill. [email or web address] CITYnkf eGFR 38(L) >=60 mL/min/1. 73 m?? [facility] Comment: The eGFR was calculated using the CKD-EPI equation. As with all creatinine based estimates of kidney function, eGFR values calculated with the CKD-EPI equation are not accurate in patients with acute kidney failure, extremes of body mass or the acutely ill. [email or web address] CITYnkf Blood specimen (specimen) 01/31/2019 9:46 AM EDT 01/31/2019 9:53 AM EDT Narrative Resulting Agency Comment Spec In Lab Tal Eagle MD CHEMISTRY ORDERAB LES Performing Organization Address City/[facility]/ZIP Co de Phone Number [facility] [place] [address] * (ABNORMAL) Uric acid (01/31/2019 9:46 AM EDT) Uric Acid 11.1(H) 3.5 - 8.5 mg/dL [facility] Blood specimen (specimen) 01/31/2019 9:46 AM EDT 01/31/2019 9:53 AM EDT Narrative Resulting Agency Comment Spec In Lab Tal Eagle MD CHEMISTRY ORDERAB LES [facility] [place] [address] * Phosphorus (01/31/2019 9:46 AM EDT) Phosphorus 3.7 2.5 - 4.5 mg/dL [facility] Blood specimen (specimen) 01/31/2019 9:46 AM EDT 01/31/2019 9:53 AM EDT Narrative Resulting Agency Comment Spec In Lab Tal Eagle MD CHEMISTRY ORDERAB LES [facility] [place] [address] * Magnesium (01/31/2019 9:46 AM EDT) Magnesium 0.76 0.69 - 1.07 mmol/L [facility] Blood specimen (specimen) 01/31/2019 9:46 AM EDT 01/31/2019 9:53 AM EDT Narrative Resulting Agency Comment Spec In Lab Tal Eagle MD CHEMISTRY ORDERAB LES Performing Organization Address [facility] Co de Phone Number [facility] [place] [address] * Cholesterol, total (01/31/2019 9:46 AM EDT) Cholesterol, Total 113 mg/dL [facility] Comment: Lower Risk: <200 mg/dL Average Risk: 200-239 mg/dL Higher Risk: >dv=916 mg/dL Lipid Interpretation See Note [facility] Comment: Lipid management should be guided by a patient? s ASCVD risk, goals and preferences. ACC/AHA Guidelines recommend high intensity statin if clinical ASCVD or LDL greater than or equal to 190 mg/dL. http://VM[employer] Mediaurl.com/CDC-JZQ-Xjxjesydu Adults aged 40-75 with LDL 70-189 mg/dL should have their 10 year ASCVD risk estimated with the ACC/AHA ASCVD risk diesel inspector http://tools.acc.org/DZCBN-Hajz-Vrcjfyxjk/ Statin should be discussed if risk greater [...] of ASCVD risk reduction. Blood specimen (specimen) 01/31/2019 9:46 AM EDT 01/31/2019 9:53 AM EDT Narrative Resulting Agency Comment Spec In Lab Tal Eagle MD CHEMISTRY ORDERAB LES [facility] [place] [address] documented in this encounter Visit Diagnoses Diagnosis Kidney replaced by transplant documented in this encounter Care Teams Ship Liner Relationship Specialty Start Date End Date Urbano Denis DO [address] [place] [address] PCP - General 09/03/12 03/17/22 Ruchi Valles RN Nurse Clinic Transplant Surgery 07/30/15 documented as of this encounter
--- OUTSIDE RECORDS SUMMARY | 2024-02-14 11:23 | XMS_ITS | Encounter Summary ---
Author Organization [facility] [place] [address] Care Team Providers Care Stud Sheep Farmer Name Role Phone Urbano Denis DO Primary Care Provider [phone] Reason for Referral * Consultation (Routine) - Specialty Diagnoses / Procedures Referred By Humberto flor Referred To Contact Cardiac Rehabilitation Diagnoses Non-ST elevation myocardial infarction (NSTEMI) Bobby Engel MD [facility] [place] [address] Referral ID Status Reason Start Date Expiration Date V isits Requested Visits Authorized [id number] Consult, Test & Treat 02/05/2019 08/04/2019 36 36 Reason for Visit * Reason Comments Dehydration Dizziness * Auth/Cert Specialty Diagnoses / Procedures Referred By Humberto flor Referred To Contact Diagnoses Paroxysmal atrial fibrillation Atrial fibrillation with RVR Referral ID Status Reason Start Date Expiration Date Visits Re quested Visits Authorized [id number] 1 1 Encounter Details Date Type Department Care Team (Latest Contact Info) Description 01/31/2019 11:21 AM EDT - 02/05/2019 4:04 PM EDT Hospital Encounter [address] [place] [address] Mundo Yeung MD [facility] [place] [address] Sandra Bunch MD [facility] [place] [address] [place] [address] [place] [address] [place] [address] Naif Garibay MD [facility] [place] [address] Paroxysmal atrial fibrillation; Non-ST elevation myocardial infarction (NSTEMI); Elevated troponin level; Atrial fibrillation with RVR - had flutter initially, then fib Discharge Disposition: Home with VNA Social History Tobacco Use Types Packs/Day Years [...] Sign Reading Time Taken Comments Blood Pressure 150/57 02/05/2019 11:02 AM EDT Pulse 50 02/05/2019 11:02 AM EDT Temperature 36.8 ??C (98.2 ??F) 02/05/2019 11:02 AM E DT Respiratory Rate 22 02/05/2019 11:02 AM EDT Oxygen Saturation 92% 02/05/2019 11:02 AM EDT Inhaled Oxygen Concentration - - Weight 107 kg (235 lb 14.3 oz) 02/03/2019 4:31 A M EDT Height 180.3 cm (5' 11) 01/31/2019 11:10 AM EDT Body Mass Index 32.9 01/31/2019 11:10 AM EDT documented in this encounter Discharge Summaries * Danny Hicks MD - 02/05/2019 3:25 PM EDT Discharge Summary Patient Name: Ethel Bolden Patient Age: 68 y.o. Language: Indonesian Race: White Ethnicity: Not nor Admit date: 01/31/2019 Discharge date and time: 02/05/2019 Attending Physician: Alessandro Limon, Discharge Physician: Danny Hicks MD Follow-up Recommendations [...] please contact your inpatient physician through the [facility] Hydroelectric Operator . Issues afterhours and on weekends will [...] Vitamin D deficiency ??? 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 long-term current use of 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 drug ??? CAH [...] fluid loss. Denies any fevers or chills. Bellwood bloated in abdomen since yesterday. No pain [...] was also started on apixaban due to BPISQ0NAGB score of 6, with no complications of [...] night,and patient reported a history of ARIELLA. [place] Sleepiness Scale was notable for increased sleepiness; [...] Studies and Lab Data: Labs: Recent Labs 02/04/19 03402/03/19 0634 02/02/19 1815 02/02/19 0612 WBC 9.8* [...] 68 BILITOT 2.8* Recent Labs 02/05/19 0747 02/04/19 19302/04/19 0340 02/03/19 0634 01/31/19 0946 CALCIUM -- [...] Complete By Expires Referral to Cardiac Rehab [[id number] Custom] As directed Process Instructions: If no progress note charted, please enter Clinical details in comments. Scheduling Instructions: Questions: My question or request is: Pt will participate in cardiac rehab @ [facility] Referral to Home Health - at DISCHARGE [[id number] CPT(R)] As directed Process Instructions: Scheduling Instructions: Comments: DOCUMENTATION FOR VNA SERVICES (INCLUDING THOSE PATIENTS WITH MEDICARE COVERAGE REQUIRING HOME VNA SERVICES AND/OR HOSPICE SERVICES) PATIENT'S LOCATION: Ethel Bolden [address] [place] [address] (home) Cell: Telephone Information: Parcel Wrapper's Name: Patient In discussion with the attending physician, it is certified that this patient is under their care and that they, or a Nurse Practitioner,Clinical Nurse specialist or Physician Fire Alarm Mechanic who is working directly with them, had [...] for managing ADL's. HOME HEALTH CARE AGENCY: [facility]. PHONE: [phone] FAX: [phone] Start of care: 24-48hrs upon discharge FOR [...] to be obtained from this patient's PCP: DO RICA Del Toro [address] / [place] [id number] All VNA agencies which cover the area of patient's residence have been reviewed, either verbally greg writing, and patient/family have chosen the home health care agency noted Questions: Agency name and contact information: [facility] Patient location post discharge: Home What services are requested: Registered Nurse Physical Therapy Occupational Therapy Start date: Responsible MD post discharge contact info: PCP Discharge References/Attachments None documented in this encounter Discharge Instructions * Discharge Instructions* Lee Ann Thomas OT - 02/04/2019 2:14 PM EDT Occupational [...] 02/05/2019 4:04 PM EDT [facility], accompanied by and RN. Belongings [...] Vitamin D deficiency ??? 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 long-term current use of 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 drug ??? CAH [...] spent <30 minutes (Day of Discharge Code 69642) involved in the final examination of the [...] DAILY PROGRESS NOTE Patient: Ethel Bolden, 1950, [id number] Physician: Alessandro Limon DO, Pager: [phone], Hospital Medicine Service Admit Date: 01/31/2019 Date [...] affect and cognition, OX3 LABS/IMAGING: Recent Labs 02/04/19 0340 02/03/19 0634 02/02/19 0612 NA 139 137 138 [...] PRN DIET: Daily Healthy Menu Choices/Cardiac diet ([facility]-Diet) IPI Certification I certify that I am a D-H credentialed attending provider with admitting privileges and that the patient meets or has met medical necessity to require an inpatient IPI level of care meeting a minimumof two midnights or is on the [facility] inpatient only procedure list (status C) due [...] side effects and NSTEMI Alessandro Limon DO [facility] Hospitalist 02/04/2019 4:42 PM * Mahsa Celestin RN - 02/04/2019 3:41 PM EDT Spoke with patient regarding VNA services, he asked me to speak with Mundo. This technical writer and editor Viktor and she asked for a referral to: [facility]. PHONE: [phone] FAX: [phone] Referral routed to the Mat Roller for matching with agency/vendor and to provide any required information. asked for an update from , made aware and will call. CM will [...] Limon DO - 02/03/2019 5:02 PM EDT [facility] MEDICINE ATTENDING DAILY PROGRESS NOTE Patient: Ethel Bolden, 1950, [id number] Physician: Alessandro Limon DO, Pager: [phone], Hospital Medicine Service Admit Date: 01/31/2019 Date [...] especially with lying flat. Discussed with Dr. Chobanian who would prefer a furosemide drip over [...] PRN DIET: Daily Healthy Menu Choices/Cardiac diet ([facility]-Diet) IPI Certification I certify that I am a D-H credentialed attending provider with admitting privileges and that the patient meets or has met medical necessity to require an inpatient IPI level of care meeting a minimumof two midnights or is on the [facility] inpatient only procedure list (status C) due [...] side effects and NSTEMI Alessandro Limon DO [facility] Hospitalist 02/03/2019 5:14 PM * Nika Starr - 02/03/2019 7:58 AM EDT Inpatient Cardiology Consult Note Date of Consultation: 02/03/2019 Admit Date: 01/31/2019 Place of Service: Responsible Attending: Dr. Singh Hospital Day 3 [...] from 01/31/2019 in Intermediate Cardiac Care Unit [facility] Office Visit from 09/15/2018 in Solid Organ Transplant at [place] Weight 107 kg (235 lb 14.3 oz) [...] - currently on heparin gtt; will need chcf anticoagulation for CHADS-VASc of at least 4; [...] CURRENT MEDICATIONS: , Patient place back on [facility] for wob and o2. Will continue to monitor. Dario Peñaloza RCP * Alessandro Limon DO - 02/02/2019 3:47 PM EDT HOSPITAL MEDICINE ATTENDING DAILY PROGRESS NOTE Patient: Ethel Bolden, 1950, [id number] Physician: Alessandro Limon DO, Pager: [phone], [facility] Medicine Service Admit Date: 01/31/2019 Date [...] minimumof two midnights or is on the [facility] inpatient only procedure list (status C) due [...] side effects and NSTEMI Alessandro Limon DO [facility] Hospitalist 02/02/2019 8:59 PM * Yamile Montoya, [facility] - 02/02/2019 8:46 AM EDT Respiratory Therapy [...] weaned to 70% , ABG obtained results 7.46///22 FIO2 weaned to 55% SPO2 95% after wean ~17:00 Pt placed on 100% Non re breather for transport to Proofer PLAN: RT will cont to support and [...] to place patient back on high flowat 2345 for SpO2 < 90%. Initially placed on [...] on 8L venti mask desat to 86%. ARCHITECTURAL DESIGNER Giselle notified. Nebulizer ordered with minimal effect. Chest xray obtained. Pt place on 12L 50% venti.RT notified requesting hi-flow. Pt continued to desat. Placed on nonrebreather sating 89%. ARCHITECTURAL DESIGNER notified. Nonrebreather only set to 50% fiO2 via hi flow stand. Came to bedside to assess. 2343- RT at bedside 2346- life safety at bedside * Alessandro Limon DO - 02/01/2019 4:28 PM EDT [facility] MEDICINE ATTENDING DAILY PROGRESS NOTE Patient: Ethel Bolden, 1950, [id number] Physician: Alessandro Limon DO, Pager: [phone], [facility] Medicine Service Admit Date: 01/31/2019 Date [...] [Urine:700] Intake/Output Summary (Last 24 hours) at 02/01/2019 192 Last data filed at 02/01/2019 1400 Gross [...] minimumof two midnights or is on the [facility] inpatient only procedure list (status C) due [...] and NSTEMI Alessandro Limon DO 2500 Hospitalist 02/01/2019 7:23 PM * Yeimi Martinez RCP - 02/01/2019 10:26 AM EDT Respiratory Therapy [...] low 90s while on mask 65L 50%. ARCHITECTURAL DESIGNER aware and had IVF stopped, ordered ABG - 7.46/33/122/22.9 on60% FO2Hb 97.4 with SpO2 still reading low 90s. Weaned FiO2 back down to 45%. Plan to start diuresis pending AM labs. PLAN: Wean settings as tolerated. Sharon Boo RCP * Polina Glaser RN - 01/31/2019 10:24 PM EDT Pt desating while asleep on RA. NC applied, unable to maintain sats on 6L NC. ARCHITECTURAL DESIGNER Giselle notified.Came to bedside to assess. Pt placed on venti mask. Pt up to 50% 12L venti mask to maintain sats >90%. RT notified. Linux Systems Engineer updated. No further labs ordered at this [...] documented in this encounter H&P Notes * Twork, Anabel E, MD - 01/31/2019 3:36 PM EDT Inpatient [...] Vitamin D deficiency ??? 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 CAH [...] Hematuria ID: 68 y.o. Male presents to [facility] with lightheadedness and decreased urine output History [...] fluid loss. Denies any fevers or chills. Bellwood bloated in abdomen since yesterday. No pain [...] EXTREMITY performed by Que Amaro MD at [facility] OR ??? PRO CYSTOURETHROSCOPY, URETER CATHETER Left 06/17/2018 CYSTO, RETROGRADE, URETEROPYELOGRAPHY (WRVU 2.37) performed by Edinson Grider III[facility] ??? PRO REIMPLANT URETER, SINGLE URETER Left 05/20/2016 @URETERONEOCYSTOSTOMY ANASTOMOSIS OF SINGLE URETER TO BLADDER performed by Santosh Arredondo MD at [facility] OR ??? PRO REIMPLANT URETER, SINGLE URETER N/A 05/20/2016 @URETERONEOCYSTOSTOMY ANASTOMOSIS OF SINGLE URETER TO BLADDER performed by Que Amaro MD at [facility] OR ??? PRO TOTAL KNEE ARTHROPLASTY Right 11/25/2017 TOTAL KNEE ARTHROPLASTY (WRVU 20.72) performed by Breezy Dale MD at [facility] OR ??? PRO TRANSPLANT, PREP CADAVER RENAL GRAFT N/A 09/16/2015 @PREPARATION CADAVERIC RENAL ALLOGRAFT performed by Larry Larkin MD at [facility] OR ??? PRO TRANSPLANTATION OF KIDNEY N/A 09/16/2015 @KIDNEY TRANSPLANT, WITHOUT RECIPIENT NEPHRECTOMY performed by Larry Larkin MD at [facility] OR ??? US RENAL TRANSPLANT LEFT Left 01/31/2019 US Renal Transplant Left 01/31/2019 [facility] RAD ULTRASOUND Prior To Admission Medications: Medications [...] file Gets together: Not on file Attends restorationism service: Not on file Active member of [...] Negative mcL Appearance UA Clear Clear Spec Bethany UA 1.023 1.002 - 1.030 Color UA [...] 40 mg (40 mg Oral Given 01/31/19 1710) metoprolol tartrate (LOPRESSOR) tablet 12.5 mg (12.5 mg Oral Given 01/31/19 1710) lactated Ringers 1,000 mL IV bolus ( Intravenous Stopped 01/31/19 1306) dilTIAZem (CARDIZEM) injection 5 mg/mL (10 mg Intravenous Given 01/31/19 1514) potassium phosphate (monobasic) (K-PHOS) tablet 1,000 mg (1,000 mg Oral Given 01/31/19 1542) dilTIAZem (CARDIZEM) injection 5 mg/mL (25 mg Intravenous Given 01/31/19 1544) aspirin tablet 325 mg (325 mg Oral Given 01/31/19 1710) calcium carbonate (Tums) chewable tablet 1,000 mg (1,000 mg Oral Given 01/31/19 1710) - I have reviewed lab results, which [...] to medicine Rocky Wong MD Resident 01/31/19 8175 Associated attestation - Mundo Yeung MD - [...] Intake/Output Summary (Last 24 hours) at 02/04/2019 1725 Last data filed at 02/04/2019 1308 Gross [...] a history of Hep C treated with Harvkatya, DM2, HTN, kidney transplant 2016 with ureterol [...] - Work up for ARIELLA--scored high on [place] Sleep Scale; may benefit from outpatient sleep [...] off oxygen ?? Destinee Leggett M4 Pager: [phone] * Consult Note - Blanca Jacobo RN [...] in an outpatient cardiac rehabilitation program at [facility] was discussed. Patient agrees to a [...] EXTREMITY performed by Que Amaro MD at [facility] MAIN OR ??? PRO CYSTOURETHROSCOPY, URETER CATHETER Left 06/17/2018 CYSTO, RETROGRADE, URETEROPYELOGRAPHY (WRVU 2.37) performed by Edinson [facility] III[facility] ??? PRO REIMPLANT URETER, SINGLE URETER Left 05/20/2016 @URETERONEOCYSTOSTOMY ANASTOMOSIS OF SINGLE URETER TO BLADDER performed by Santosh Arredondo MD at [facility] OR ??? PRO REIMPLANT URETER, SINGLE URETER N/A 05/20/2016 @URETERONEOCYSTOSTOMY ANASTOMOSIS OF SINGLE URETER TO BLADDER performed by Que Amaro MD at [facility] OR ??? PRO TOTAL KNEE ARTHROPLASTY Right 11/25/2017 TOTAL KNEE ARTHROPLASTY (WRVU 20.72) performed by Breezy Dale MD at [facility] OR ??? PRO TRANSPLANT, PREP CADAVER RENAL GRAFT N/A 09/16/2015 @PREPARATION CADAVERIC RENAL ALLOGRAFT performed by Larry Larkin MD at [facility] OR ??? PRO TRANSPLANTATION OF KIDNEY N/A 09/16/2015 @KIDNEY TRANSPLANT, WITHOUT RECIPIENT NEPHRECTOMY performed by Larry Larkin MD at [facility] OR ??? US RENAL TRANSPLANT LEFT Left 01/31/2019 US Renal Transplant Left 01/31/2019 [facility] RAD ULTRASOUND Social History: Patient lives with his . Home Setup: 2 bucklin home with 4 ROCAEL; everything is accessible [...] Total Evaluation Minutes, Occupational Therapy: 31(evaluation ) 2016 OT Evaluation Code Rationale: ?? Diagnosis & [...] and measurable assessment of functional outcome. Pager: [phone] Lee Ann Thomas OT 02/04/2019 Occupational Therapy Rehabilitation Department * Plan of Care - Betzaida Sparks RN - 02/04/2019 2:27 AM EDT Problem: Patient Care Overview Goal: Plan of Care Review Outcome: Ongoing (Interventions Implemented as Appropriate) 02/01/19 0303 02/03/19 2040 Plan of Care Review Progress no change [...] Med Student Progress Note ?? ID: Ethel Boldne is a 68 y.o. male with a history of Hep C treated with Harvoni, DM2, HTN, kidney transplant 2016 with ureterol reconstruction who presented with decreased urine output and dizziness. ?? Overnight Events: - 1:45: Patient appeared SOB but denied dyspnea; and high flow w/ O2 sat at low 90's and ufurlrnxyk55% non sustained. - 3:00am: Stewart x1, Pt stated he is feeling much [...] possibly be re-evaluated for cardiac rehab. Given [id number] score and history of aflutter, will begin [...] off oxygen ?? Destinee Leggett M4 Pager: [phone] * Consult Note - Sara Amador RN [...] Procedure Note: Patient Name: Ethel Bolden : [id number] MR#: [id number] Case Date: 02/02/2019 Hydroelectric Operator: Surgeon(s) and Role: * Bobby Engel MD [...] Intake/Output Summary (Last 24 hours) at 02/02/2019 0725 Last data filed at 02/02/2019 0616 Gross [...] HR <50, Systolic BP <90 - Elevated [id number]; patient may benefit from anticoagulation; to discuss [...] d/c ?Thursday ?? Destinee Leggett M4 Pager: [phone] * Plan of Care - Sharon Ruth [...] to recover. 1653 patient transferred to the medical lab tech instructor PLAN MOVING FORWARD: Telemetry Heparin drip Bleeding [...] GENERIC Prescription Coverage: Yes Preferred Pharmacy: [facility] [address] [address] Not a 24 hour pharmacy; exact hours not known [place] [phone] Not a 24 hour pharmacy; exact hours not known Other: None Primary Care Provider: Urbano Denis DO [phone] Patient/Caregiver Goals of Treatment: To get the [...] assist with transition of care planning. Mahsa Celestin RN Pager: [phone] * Plan of Care - Nika Starr [...] left heart cath, coronaries Nika Starr MD Director Of Pharmacy * Plan of Care - Polina Glaser [...] ADLs]: Arms reach Surveillance [continuous indirect monitoring]: jose l Crum, purposeful rounding Patient-specific fall prevention interventions for [...] ADLs]: SBA Surveillance [continuous indirect monitoring]: Tele, masimo, call light within reach, room near unit [...] Handling Outcome: Ongoing (Interventions Implemented as Appropriate) 02/01/19 0900 02/01/19 1619 Stephens Fall Risk History of Falling [...] Control Outcome: Ongoing (Interventions Implemented as Appropriate) 02/01/19 0900 02/01/19 1619 Safety Interventions Isolation Precautions -- standard [...] HR <50, Systolic BP <90 - Elevated [id number]; patient may benefit from anticoagulation but unclear [...] d/c ?Thursday ?? Destinee Leggett M4 Pager: [phone] * Consult Note - Larry Garay MD [...] Chest xray completed. Trop came back elevated. ARCHITECTURAL DESIGNER Giselle notified. STAT EKG completed. Heparin gtt infusing as ordered. Life safety came to bedside. IVF decreased to 75cc/hr from 120cc/hr. Tele in sinus rhythm with frequent PVCs. Will CTM and notify the team with changes. 0410- Pt continues to have difficulty maintain sats on venti mask. Placed on Hi- flow mask. IVF stopped. Rt at bedside. ABG drawn. Life safety and ARCHITECTURAL DESIGNER at bedside. PLAN MOVING FORWARD: Tele Monitor resp status Trend trop Heparin gtt INDIVIDUALIZED FALL PREVENTION INTERVENTIONS: Patient-specific fall risk factors per assessment: [current deficits]: Generalized weakness, whaley Assistance [level of assistance required for transfers and ambulation]: SBA Supervision [direct monitoring required during toileting and ADLs]: Hands on Surveillance [continuous indirect monitoring]: Masimcarmina, tele Patient-specific fall prevention interventions for sensory deficits [...] remained coarse and diminished in bases. Primary RECTIFICATION PRINTER notified with concern of new oxygen demand. Plan made to d/c IVF r/tincreased pulmonary congestion shown on CXR and elevated troponin. AM labs drawn to evaluate RAY and d/c of IVF. MD expressed concerns of sleep apnea. When patient originally awake no increases in O2sat noted. JAVA SOFTWARE DEVELOPER notified and down to eval. Plan made [...] couple of years ago and don't want it.RECTIFICATION PRINTER consulted critical care fellow at this time. Lasix IVP was discussed to help with new pulmonary congestion. Plan made to re evaluate s/p AM labs (ie. BUN/Cr) for concern of worsening RAY. Plan made with RECTIFICATION PRINTER, primary RN, and charger for continued monitoring of oxygen status, repeat [...] with oxygenation. Plan made with primary RN, RECTIFICATION PRINTER, and charger to have patient remain on floor r/t [...] EXTREMITY performed by Que Amaro MD at [facility] OR ??? PRO CYSTOURETHROSCOPY, URETER CATHETER Left 06/17/2018 CYSTO, RETROGRADE, URETEROPYELOGRAPHY (WRVU 2.37) performed by Edinson [facility] III[facility] ??? PRO REIMPLANT URETER, SINGLE URETER Left 05/20/2016 @URETERONEOCYSTOSTOMY ANASTOMOSIS OF SINGLE URETER TO BLADDER performed by Santosh Arredondo MD at [facility] OR ??? PRO REIMPLANT URETER, SINGLE URETER N/A 05/20/2016 @URETERONEOCYSTOSTOMY ANASTOMOSIS OF SINGLE URETER TO BLADDER performed by Que Amaro MD at [facility] OR ??? PRO TOTAL KNEE ARTHROPLASTY Right 11/25/2017 TOTAL KNEE ARTHROPLASTY (WRVU 20.72) performed by Breezy Dale MD at [facility] OR ??? PRO TRANSPLANT, PREP CADAVER RENAL GRAFT N/A 09/16/2015 @PREPARATION CADAVERIC RENAL ALLOGRAFT performed by Larry Larkin MD at [facility] OR ??? PRO TRANSPLANTATION OF KIDNEY N/A 09/16/2015 @KIDNEY TRANSPLANT, WITHOUT RECIPIENT NEPHRECTOMY performed by Larry Larkin MD at [facility] OR ??? US RENAL TRANSPLANT LEFT Left 01/31/2019 US Renal Transplant Left 01/31/2019 [facility] RAD ULTRASOUND No Known Allergies Cardiac Medications: [...] file Gets together: Not on file Attends restorationism service: Not on file Active member of [...] output data in the 24 hours ending 01/31/197 Wt & BMI By Encounter Date ED to Hosp-Admission (Current) from 01/31/[address] [place] [address] Office Visit from 09/15/2018 in Solid Organ Transplant at [place] Weight 106.1 kg (234 lb) 1 01/31/2019 [...] the last 168 hours. Recent Labs 01/31/19 1620 01/31/19 1157 TROPONINT 0.04* 0.03* No results found [...] will continue to follow. Jessee Nance MD Director Of Pharmacy [phone] POST ROUNDS ADDENDUM 68 year old [...] Cheung, addendum to follow. Nika Starr MD Director Of Pharmacy [phone] Cardiology Staff Addendum Ethel Bolden is [...] on TTE) #Atrial fibrillation and flutter, nonvalvular, [id number] 6 #HFrEF/acute systolic HF, new (LVEF 35%), [...] AM EDT Hospital Encounter [place] [address] Arrived Pending Results Name Type Priority Associated [...] Paroxysmal atrial fibrillation CARDIAC CATHETERIZATION Routine 02/03/20 19 6:59 PM EDT POINT OF CARE BLOOD [...] 11:57 AM EDT DIFFERENTIAL, AUTOMATED STAT 02/01/20 11:57 AM EDT GOLD TUBE HOLD STAT [...] EDT) pH, Arterial 7.50(H) 7.35 - 7.45 [facility] PCO2, Arterial 33(L) 35 - 45 mmHg [facility] PO2, Arterial 77(L) 85 - 104 mmHg [facility] Bicarbonate, Arterial 24.7 20.0 - 26.0 mmol/L [facility] Base Excess, Arterial 1.5 -3.0 - 3.0 mmol/L [facility] Hgb Blood Gas 16.3 13.7 - 16.5 gm/dL [facility] Oxyhemoglobin, Arterial 94.9 94.0 - 97.0 % [facility] Carboxyhemoglob in, Arterial 0.7 % [facility] Comment: Nonsmokers: 0.5-1.5% COHB Smokers: Variable, but usually less than 10% Toxic: 20-30% COHB Lethal: Greater than 60% COHB Methemoglobin, Arterial 0.5 <=1.5 % [facility] Na Whole Blood 133(L) 135 - 145 mmol/L [facility] K Whole Blood 4.1 3.5 - 5.0 mmol/L [facility] Comment: Please note: Patients with WBC >100,000 may have falsely elevated Potassium levels. Contact the Clinical Chemistry Laboratory if there are any questions. ICa Whole Blood 1.08(L) 1.15 - 1.33 mmol/L [facility] Comment: Note: ??Total bilirubin higher than 20 mg/dL may lead to falsely low ionized calcium. CL Whole Blood 98 98 - 107 mmol/L [facility] Gluc Whole Bld 138 65 - 199 mg/dL [facility] Comment:Diabetes: >=200 mg/d L plus symptoms. Lactate WB 1.5 0.5 - 2.2 mmol/L [facility] FIO2 Art 50 % [facility] PF Ratio Art 154 [facility] Blood specimen (specimen) 02/07/2019 2:42 AM EDT 02/07/2019 2:42 AM EDT Danny Hicks MD POINT OF CARE TEST O RDERABLES Performing Organization Address [facility] Co de Phone Number [facility] [place] [address] * POCT Glucose (02/05/2019 11:25 AM EDT) Glucose, POC 163 65 - 199 mg/dL [facility] Comment: Supplemental ranges: <140 mg/dL before meals <180 mg/dL all other times of the day Blood specimen (specimen) 02/05/2019 11:25 AM EDT 02/05/2019 11:25 AM EDT Alessandro Limon DO POINT OF CARE TEST O RDERABLES Performing Organization Address [facility] Co de Phone Number [facility] [place] [address] * (ABNORMAL) Magnesium (02/05/2019 7:47 AM EDT) Magnesium 0.67(L) 0.69 - 1.07 mmol/L [facility] Blood specimen (specimen) 02/05/2019 7:47 AM EDT 02/05/2019 8:13 AM EDT Narrative Resulting Agency Comment Spec In Lab Alessandro Limon DO CHEMISTRY ORDERABLES Performing Organization Address [facility] Co de Phone Number [facility] [place] [place] [address] * POCT Glucose (02/05/2019 6:56 AM EDT) Glucose, POC 110 65 - 199 mg/dL [facility] Comment: Supplemental ranges: <140 mg/dL before meals <180 mg/dL all other times of the day Blood specimen (specimen) 02/05/2019 6:56 AM EDT 02/05/2019 6:56 AM EDT Alessandro Limon DO POINT OF CARE TEST O RDERABLES Performing Organization Address [facility]/ZIP Co de Phone Number [facility] [place] [address] * POCT Glucose (02/04/2019 7:38 PM EDT) Glucose, POC 102 65 - 199 mg/dL [facility] Comment: Supplemental ranges: <140 mg/dL before meals <180 mg/dL all other times of the day Blood specimen (specimen) 02/04/2019 7:38 PM EDT 02/04/2019 7:38 PM EDT Alessandro Limon DO POINT OF CARE TEST O RDERABLES Performing Organization Address [facility] Co de Phone Number [facility] [place] [address] * (ABNORMAL) BMP w/fasting Glucose (02/04/2019 7:35 PM EDT) Glucose Fasting 107(H) 65 - 99 mg/dL [facility] [...] of Diabetes Mellitus, Position Statement from the [place] [employer]. ??Diabetes Care, Volume 33, Supplement 1, Jul 2009 Blood Urea Nitrogen 20 10 - 20 mg/dL [facility] Creatinine 1.43 0.80 - 1.50 mg/dL [facility] Sodium 142 135 - 145 mmol/L [facility] Potassium 3.4(L) 3.5 - 5.0 mmol/L [facility] Comment: Please note: ??Patients with WBC >100,000 may have falsely elevated Potassium levels. ??For accurate Potassium quantification in these patients send serum separator tube (gold top) for subsequent determinations. ??Contact the Clinical Chemistry Laboratory if there are any questions. Chloride 98 98 - 107 mmol/L [facility] Carbon Dioxide 31 22 - 31 mmol/L [facility] Anion Gap 13 5 - 15 mmol/L [facility] Calcium 9.2 8.5 - 10.5 mg/dL [facility] Est Glomerular Filtration Rate 49(L) >=60 mL/min/1. 73 m?? [facility] Comment: The eGFR was calculated using the CKD-EPI equation. As with all creatinine based estimates of kidney function, eGFR values calculated with the CKD-EPI equation are not accurate in patients with acute kidney failure, extremes of body mass or the acutely ill. http://[employer]/[facility] ATOKAnkf eGFR 57(L) >=60 mL/min/1. 73 m?? [facility] Comment: The eGFR was calculated using the CKD-EPI equation. As with all creatinine based estimates of kidney function, eGFR values calculated with the CKD-EPI equation are not accurate in patients with acute kidney failure, extremes of body mass or the acutely ill. http://[employer]/[facility]OK[facility] Blood specimen (specimen) 02/04/2019 7:35 PM EDT 02/04/2019 7:40 PM EDT Narrative Resulting Agency Comment Spec In Lab Patricia Lozano APRN CHEMISTRY ORDERAB LES [facility] [place] [address] * POCT Glucose (02/04/2019 4:30 PM EDT) Glucose, POC 143 65 - 199 mg/dL [facility] Comment: Supplemental ranges: <140 mg/dL before meals <180 mg/dL all other times of the day Blood specimen (specimen) 02/04/2019 4:30 PM EDT 02/04/2019 4:30 PM EDT Alessandro Limon DO POINT OF CARE TEST O RDERABLES Performing Organization Address [facility] Co de Phone Number [facility] [place] [address] * POCT Glucose (02/04/2019 11:26 AM EDT) Glucose, POC 141 65 - 199 mg/dL [facility] Comment: Supplemental ranges: <140 mg/dL before meals <180 mg/dL all other times of the day Blood specimen (specimen) 02/04/2019 11:26 AM EDT 02/04/2019 11:26 AM EDT Alessandro Limon DO POINT OF CARE TEST O RDERABLES Performing Organization Address [facility] Co de Phone Number [facility] [place] [address] * POCT Glucose (02/04/2019 7:01 AM EDT) Glucose, POC 152 65 - 199 mg/dL [facility] Comment: Supplemental ranges: <140 mg/dL before meals <180 mg/dL all other times of the day Blood specimen (specimen) 02/04/2019 7:01 AM EDT 02/04/2019 7:01 AM EDT Alessandro Limon DO POINT OF CARE TEST O RDERABLES Performing Organization Address [facility] Co de Phone Number [facility] [place] [address] * Magnesium (02/04/2019 3:40 AM EDT) Magnesium 0.69 0.69 - 1.07 mmol/L [facility] Blood specimen (specimen) Venous Draw / Unknown 02/04/2019 3:40 AM EDT 02/04/2019 3:49 AM EDT Narrative Resulting Agency Comment Spec In Lab Alessandro Limon CHEMISTRY ORDERABLES [facility] [place] [address] * (ABNORMAL) Basic Metabolic Panel (non-fasting) (02/04/2019 3:40 AM EDT) Glucose 126 65 - 199 mg/dL [facility] Comment:Diabetes: >=200 mg/d L plus symptoms Blood Urea Nitrogen 21(H) 10 - 20 mg/dL [facility] Creatinine 1.56(H) 0.80 - 1.50 mg/dL [facility] Sodium 139 135 - 145 mmol/L [facility] Potassium 3.8 3.5 - 5.0 mmol/L [facility] Comment: Please note: ??Patients with WBC >100,000 may have falsely elevated Potassium levels. ??For accurate Potassium quantification in these patients send serum separator tube (gold top) for subsequent determinations. ??Contact the Clinical Chemistry Laboratory if there are any questions. Chloride 98 98 - 107 mmol/L [facility] Carbon Dioxide 28 22 - 31 mmol/L [facility] Anion Gap 13 5 - 15 mmol/L [facility] Calcium 8.7 8.5 - 10.5 mg/dL [facility] Est Glomerular Filtration Rate 44(L) >=60 mL/min/1. 73 m?? [facility] Comment: The eGFR was calculated using the CKD-EPI equation. As with all creatinine based estimates of kidney function, eGFR values calculated with the CKD-EPI equation are not accurate in patients with acute kidney failure, extremes of body mass or the acutely ill. http://[employer]/[facility]nkf eGFR 51(L) >=60 mL/min/1. 73 m?? [facility] Comment: The eGFR was calculated using the CKD-EPI equation. As with all creatinine based estimates of kidney function, eGFR values calculated with the CKD-EPI equation are not accurate in patients with acute kidney failure, extremes of body mass or the acutely ill. [email or web address]/[facility]MCnkf Blood specimen (specimen) 02/04/2019 3:40 AM EDT 02/04/2019 3:49 AM EDT Narrative Resulting Agency Comment Spec In Lab Alessandro Limon DO CHEMISTRY ORDERABLES [facility] [place] [address] * (ABNORMAL) Hemogram (02/04/2019 3:40 AM EDT) White Blood Cell 9.8(H) 4.0 - 9.5 x10(3)/mc L [facility] Red Blood Cell 4.59 4.58 - 5.54 x10(6)/mc L [facility] Hemoglobin 14.1 13.7 - 16.5 gm/dL [facility] Hematocrit 41.9 40.5 - 48.5 % [facility] Mean Cell Volume 91.3 82.9 - 93.1 fL [facility] Mean Cell Hemoglobin 30.7 27.5 - 32.1 pg [facility] Mean Cell Hemoglobin Concentration 33.7 32.0 - 35.7 gm/dL [facility] Platelet 247 145 - 357 x10(3)/mc L [facility] RDW Standard Deviation 45.1(H) 36.0 - 45.0 fL [facility] RDW coefficient of variation 13.8 11.4 - 13.8 % [facility] Mean Platelet Volume 9.5 7.6 - 12.9 fL [facility] NRBC% auto 0.0 % [facility] NRBC Absolute 0.000 0.000 - 0.000 x10(3)/mc L [facility] Blood specimen (specimen) 02/04/2019 3:40 AM EDT 02/04/2019 3:49 AM EDT Narrative Resulting Agency Comment Spec In Lab Alessandro Limon DO HEMATOLOGY ORDERABLE S Performing Organization Address [facility]/ZIP Co de Phone Number [facility] [place] [address] * POCT Glucose (02/03/2019 8:56 PM EDT) Glucose, POC 117 65 - 199 mg/dL [facility] Comment: Supplemental ranges: <140 mg/dL before meals <180 mg/dL all other times of the day Blood specimen (specimen) 02/03/2019 8:56 PM EDT 02/03/2019 8:56 PM EDT Alessandro Limon DO POINT OF CARE TEST O RDERABLES Performing Organization Address [facility] Co de Phone Number [facility] [place] [address] * Heparin (unfractionated) Level (02/03/2019 5:07 PM EDT) UF Heparin 0.31 IU/mL [facility] Comment: Guidelines for therapeutic unfractionated [...] Lab Anabel Duncan MD HEMATOLOGY ORDERABLE S [facility] [place] [address] * POCT Glucose (02/03/2019 4:40 PM EDT) Glucose, POC 160 65 - 199 mg/dL [facility] Comment: Supplemental ranges: <140 mg/dL before meals <180 mg/dL all other times of the day Blood specimen (specimen) 02/03/2019 4:40 PM EDT 02/03/2019 4:40 PM EDT Alessandro Limon DO POINT OF CARE TEST O RDERABLES Performing Organization Address [facility] Co de Phone Number [facility] [place] [address] * POCT Glucose (02/03/2019 11:41 AM EDT) Glucose, POC 169 65 - 199 mg/dL [facility] Comment: Supplemental ranges: <140 mg/dL before meals <180 mg/dL all other times of the day Blood specimen (specimen) 02/03/2019 11:41 AM EDT 02/03/2019 11:41 AM EDT Alessandro Limon DO POINT OF CARE TEST O TED Performing Organization Address [facility] Co de Phone Number [facility] [place] [address] * Heparin (unfractionated) Level (02/03/2019 10:02 AM EDT) UF Heparin 0.33 IU/mL [facility] Comment: Guidelines for therapeutic unfractionated [...] DO HEMATOLOGY ORDERABLE S Performing Organization Address [facility] de Phone Number [facility] [place] [place] [address] * POCT Glucose (02/03/2019 7:14 AM EDT) Glucose, POC 118 65 - 199 mg/dL [facility] Comment: Supplemental ranges: <140 mg/dL before meals <180 mg/dL all other times of the day Blood specimen (specimen) 02/03/2019 7:14 AM EDT 02/03/2019 7:14 AM EDT Alessandro Limon DO POINT OF CARE TEST O RDERABLES Performing Organization Address [facility] de Phone Number [facility] [place] [address] * Magnesium (02/03/2019 6:34 AM EDT) Magnesium 0.71 0.69 - 1.07 mmol/L [facility] Blood specimen (specimen) 02/03/2019 6:34 AM EDT 02/03/2019 6:41 AM EDT Narrative Resulting Agency Comment Spec In Lab Alessandro Limon CHEMISTRY ORDERABLES [facility] [place] [address] * (ABNORMAL) Basic Metabolic Panel (non-fasting) (02/03/2019 6:34 AM EDT) Glucose 115 65 - 199 mg/dL [facility] Comment:Diabetes: >=200 mg/d L plus symptoms Blood Urea Nitrogen 22(H) 10 - 20 mg/dL [facility] Creatinine 1.44 0.80 - 1.50 mg/dL [facility] Sodium 137 135 - 145 mmol/L [facility] Potassium 3.4(L) 3.5 - 5.0 mmol/L [facility] Comment: Please note: ??Patients with WBC >100,000 may have falsely elevated Potassium levels. ??For accurate Potassium quantification in these patients send serum separator tube (gold top) for subsequent determinations. ??Contact the Clinical Chemistry Laboratory if there are any questions. Chloride 101 98 - 107 mmol/L [facility] Carbon Dioxide 26 22 - 31 mmol/L [facility] Anion Gap 10 5 - 15 mmol/L [facility] Calcium 8.4(L) 8.5 - 10.5 mg/dL [facility] Est Glomerular Filtration Rate 49(L) >=60 mL/min/1. 73 m?? [facility] Comment: The eGFR was calculated using the CKD-EPI equation. As with all creatinine based estimates of kidney function, eGFR values calculated with the CKD-EPI equation are not accurate in patients with acute kidney failure, extremes of body mass or the acutely ill. http://[employer] eGFR 57(L) >=60 mL/min/1. 73 m?? [facility] Comment: The eGFR was calculated using the CKD-EPI equation. As with all creatinine based estimates of kidney function, eGFR values calculated with the CKD-EPI equation are not accurate in patients with acute kidney failure, extremes of body mass or the acutely ill. [email or web address] Blood specimen (specimen) 02/03/2019 6:34 AM EDT 02/03/2019 6:41 AM EDT Narrative Resulting Agency Comment Spec In Lab Alessandro Limon DO CHEMISTRY ORDERABLES [facility] [place] [address] * (ABNORMAL) Hemogram (02/03/2019 6:34 AM EDT) White Blood Cell 8.9 4.0 - 9.5 x10(3)/mc L [facility] Red Blood Cell 4.05(L) 4.58 - 5.54 x10(6)/mc L [facility] Hemoglobin 12.8(L) 13.7 - 16.5 gm/dL [facility] Hematocrit 38.0(L) 40.5 - 48.5 % [facility] Mean Cell Volume 93.8(H) 82.9 - 93.1 [facility] Mean Cell Hemoglobin 31.6 27.5 - 32.1 pg [facility] Mean Cell Hemoglobin Concentration 33.7 32.0 - 35.7 gm/dL [facility] Platelet 200 145 - 357 x10(3)/mc L [facility] RDW Standard Deviation 46.7(H) 36.0 - 45.0 [facility] RDW coefficient of variation 13.8 11.4 - 13.8 % [facility] Mean Platelet Volume 9.6 7.6 - 12.9 [facility] NRBC% auto 0.0 % [facility] NRBC Absolute 0.000 0.000 - 0.000 x10(3)/mc L [facility] Blood specimen (specimen) 02/03/2019 6:34 AM EDT 02/03/2019 6:41 AM EDT Narrative Resulting Agency Comment Spec In Lab Alessandro Limon DO HEMATOLOGY ORDERABLE S Performing Organization Address [facility] Co de Phone Number [facility] [place] [address] * POCT Glucose (02/02/2019 10:04 PM EDT) Glucose, POC 188 65 - 199 mg/dL [facility] Comment: Supplemental ranges: <140 mg/dL before meals <180 mg/dL all other times of the day Blood specimen (specimen) 02/02/2019 10:04 PM EDT 02/02/2019 10:04 PM EDT Alessandro Limon DO POINT OF CARE TEST O RDERABLES Performing Organization Address [facility] de Phone Number [facility] [place] [address] * POCT Glucose (02/02/2019 7:54 PM EDT) Glucose, POC 101 65 - 199 mg/dL [facility] Comment: Supplemental ranges: <140 mg/dL before meals <180 mg/dL all other times of the day Blood specimen (specimen) 02/02/2019 7:54 PM EDT 02/02/2019 7:54 PM EDT Alessandro Limon DO POINT OF CARE TEST O RDERABLES Performing Organization Address [facility] Co de Phone Number [facility] [place] [address] * EKG 12 Lead (02/02/2019 7:26 PM EDT) Ventricular rate 65 BPM MUSE SYSTEM Atrial Rate 65 BPM MUSE SYSTEM P-R Interval 192 ms MUSE SYSTEM QRS Duration 116 ms MUSE SYSTEM Q-T Interval 440 ms MUSE SYSTEM QTC Calculated (Bezet) 457 ms MUSE SYSTEM Calculated P [place] 48 degrees MUSE SYSTEM Calculated R [place] -59 degrees MUSE SYSTEM Calculated T [place] 15 degrees MUSE SYSTEM INTERPRETATION Sinus rhythm with Premature atrial complexes Left anterior fascicular block Abnormal ECG When compared with ECG of 01-FEB-2019 01:00, T wave inversion no longer evident in Anterolateral leads Confirmed by MD Phillip Daniel ([id number]) on 02/03/2019 3:52:55 PM MUSE SYSTEM 02/02/2019 7:26 PM EDT 02/03/2019 3:52 PM EDT Alessandro Limon DO ECG ORDERABLES MUSE SYSTEM * CARDIAC CATHETERIZATION (02/02/2019 6:59 PM EDT) Anatomical Region Laterality Modality Other Narrative 02/03/2019 1:49 AM EDT ?[facility] ? Cardiac Catheterization/Intervention Report ? Patient Name: Ethel Bolden P. ? Procedure Date: 02/02/2019 ? A #: [id number] ? Primary Physician: Toro, Bobby T ? Case #: [id number] ? File Name: [id number] ? Catheterization Order Number: [id number] ? [facility] ? Final Report [place], [place] ? Patient Name: ? Ethel P. Tubiello ? ID#: ?[id number] ? : ?1950 ? Procedure Date: ? February 02, 2019 ?Case #: ? [id number] ? Room: ? 2 ? Case Physician: ? Bobby Engel, M.D. ?Start: ?18:00 ?Fellow: ? Yeimi Whittaker [...] was designated as ASA Class ?III. The HA clinical frailty scale is 6: Moderately Frail. ? Diagnostic Tests: ?Prior Coronary Angiography: ? LV ejection fraction within 6 months is 55%. ?Electrocardiography: ? EKG was assessed by ECG. EKG was Abnormal. EKG showed T-wave ? inversions. ?Medications Prior to Procedure: ? ASA and Statin. ? Indications for Diagnostic Cath: ?The priority of the diagnostic procedure was Urgent. The indication for ?the medical lab tech instructor visit is ACS less than or equal [...] on chronic DAPT on arrival to the medical lab tech instructor. ?Recommend continuing clopidogrel 75 mg PO daily [...] ?catheterization, stent insertion-coronary and ABG. ? Bobby Engel, M.D. ? Electronically Signed by: Bobby Engel, M.D. ? Report Finalized: 02/03/2019 ??01:42 ? Report Last Ammended: 06/25/2019 ??16:39 ? Procedure Note Bobby Engel MD - 06/25/2019 [facility] Cardiac Catheterization/Intervention Report Patient Name: Ethel Bolden Procedure Date: 02/02/2019 A #: [id number] Primary Physician: Bobby Engel Case #: File Name: [id number] Catheterization Order Number: [id number] [facility] FinalReport [place], [place] Patient Name: Ethel Bolden ID#:[id number] :1950 Procedure Date: February 02, 2019 Case #: Room: 2 Case Physician: Bobby Engel M.D. [...] patient was designated as ASAClass III. The [facility] clinical frailty scale is 6: Moderately Frail. Diagnostic Tests: Prior Coronary Angiography: LV ejection fraction within 6 months is 55%. Electrocardiography: EKG was assessed by ECG. EKG was Abnormal. EKG showed T-wave inversions. Medications Prior to Procedure: ASA and Statin. Indications for Diagnostic Cath: The priority of the diagnostic procedure was Urgent. The indicationfor the medical lab tech instructor visit is ACS less than or equal [...] The lesion was predilated with a 2.00mm [id number] MM balloon with a maximum inflation pressure [...] on chronic DAPT on arrival to the medical lab tech instructor. Recommend continuing clopidogrel 75 mg PO daily [...] EDT) pH, POC 7.48(H) 7.35 - 7.45 [facility] pCO2, POC 33(L) 35 - 45 mmHg [facility] pO2, POC 51(L) 85 - 104 mmHg [facility] Base Excess, POC 1.0 -3.0 - 3.0 mmol/L [facility] Bicarbonate, POC 24.9 20.0 - 26.0 mmol/L [facility] Sodium, POC 140 135 - 145 mmol/L [facility] POC Potassium 3.5 3.5 - 5.0 mmol/L [facility] Ionized Calcium, POC 1.15 1.15 - 1.33 mmol/L [facility] POC Hematocrit 41.0 40.0 - 51.0 % [facility] POC Calc Hgb 13.9 13.7 - 17.5 gm/dL [facility] Comment:The calculation of h emoglobin from hematocrit assumes a normal MCHC. POC Bgas Loc CC LAB [facility] Blood specimen (specimen) 02/02/2019 6:15 PM EDT 02/04/2019 1:23 PM EDT Alessandro Limon DO CHEMISTRY ORDERABLES Performing Organization Address [facility] de Phone Number [facility] [place] [address] * POCT Glucose (02/02/2019 4:16 PM EDT) Glucose, POC 114 65 - 199 mg/dL [facility] Comment: Supplemental ranges: <140 mg/dL before meals <180 mg/dL all other times of the day Blood specimen (specimen) 02/02/2019 4:16 PM EDT 02/02/2019 4:16 PM EDT Alessandro Limon DO POINT OF CARE TEST O RDERABLES Performing Organization Address [facility] de Phone Number [facility] [place] [address] * XR Chest One View (02/02/2019 3:30 [...] contact the number below. Alessandro Limon DO IM DX ORDERABLES * (ABNORMAL) BLOOD GAS 2 ARTERIAL (02/02/2019 3:23 PM EDT) pH, Arterial 7.46(H) 7.35 - 7.45 [facility] PCO2, Arterial 32(L) 35 - 45 mmHg [facility] PO2, Arterial 103 85 - 104 mmHg [facility] Bicarbonate, Arterial 22.2 20.0 - 26.0 mmol/L [facility] Base Excess, Arterial -1.5 -3.0 - 3.0 mmol/L [facility] Hgb Blood Gas 14.9 13.7 - 16.5 gm/dL [facility] Oxyhemoglobin, Arterial 97.1(H) 94.0 - 97.0 % [facility] Carboxyhemoglob in, Arterial 0.5 % [facility] Comment: Nonsmokers: 0.5-1.5% COHB Smokers: Variable, but usually less than 10% Toxic: 20-30% COHB Lethal: Greater than 60% COHB Methemoglobin, Arterial 0.3 <=1.5 % [facility] Na Whole Blood 134(L) 135 - 145 mmol/L [facility] K Whole Blood 3.8 3.5 - 5.0 mmol/L [facility] Comment: Please note: Patients with WBC >100,000 may have falsely elevated Potassium levels. Contact the Clinical Chemistry Laboratory if there are any questions. ICa Whole Blood 1.16 1.15 - 1.33 mmol/L [facility] Comment: Note: ??Total bilirubin higher than 20 mg/dL may lead to falsely low ionized calcium. CL Whole Blood 102 98 - 107 mmol/L [facility] Gluc Whole Bld 123 65 - 199 mg/dL [facility] Comment:Diabetes: >=200 mg/d L plus symptoms. Lactate WB 1.3 0.5 - 2.2 mmol/L [facility] FIO2 Art 70 % [facility] PF Ratio Art 147 [facility] Blood specimen (specimen) 02/02/2019 3:23 PM EDT 02/02/2019 3:23 PM EDT Alessandro Limon DO POINT OF CARE TEST O TED Performing Organization Address [facility] Co de Phone Number [facility] [place] [address] * POCT Glucose (02/02/2019 12:44 PM EDT) Glucose, POC 129 65 - 199 mg/dL [facility] Comment: Supplemental ranges: <140 mg/dL before meals <180 mg/dL all other times of the day Blood specimen (specimen) 02/02/2019 12:44 PM EDT 02/02/2019 12:44 PM EDT Alessandro Limon DO POINT OF CARE TEST O TED Performing Organization Address City/[facility]/ZIP Co de Phone Number [facility] [place] [address] * Heparin (unfractionated) Level (02/02/2019 12:33 PM EDT) UF Heparin 0.29 IU/mL [facility] Comment: Guidelines for therapeutic unfractionated [...] MD HEMATOLOGY ORDERABLE S Performing Organization Address City/State/[facility] Co de Phone Number [facility] [place] [address] * POCT Glucose (02/02/2019 11:31 AM EDT) Glucose, POC 144 65 - 199 mg/dL [facility] Comment: Supplemental ranges: <140 mg/dL before meals <180 mg/dL all other times of the day Blood specimen (specimen) 02/02/2019 11:31 AM EDT 02/02/2019 11:31 AM EDT Alessandro Limon DO POINT OF CARE TEST O RDERABLES Performing Organization Address [facility] de Phone Number [facility] [place] [address] * (ABNORMAL) POCT Glucose (02/02/2019 8:23 AM EDT) [facility] Glucose, POC 217(H) 65 - 199 mg/dL [facility] Comment: Supplemental ranges: <140 mg/dL before meals <180 mg/dL all other times of the day Blood specimen (specimen) 02/02/2019 8:23 AM EDT 02/02/2019 8:23 AM EDT Alessandro Limon DO POINT OF CARE TEST O RDERABLES Performing Organization Address [facility] de Phone Number [facility] [place] [address] * Heparin (unfractionated) Level (02/02/2019 6:12 AM EDT) [facility] UF Heparin 0.32 IU/mL [facility] Comment: Guidelines for therapeutic unfractionated [...] MD HEMATOLOGY ORDERABLE S Performing Organization Address City/[facility]/ZIP Co de Phone Number [facility] [place] [address] * Magnesium (02/02/2019 6:12 AM EDT) Pathologist [facility] Magnesium 0.74 0.69 - 1.07 mmol/L [facility] Blood specimen (specimen) 02/02/2019 6:12 AM EDT 02/02/2019 6:33 AM EDT Narrative Resulting Agency Comment Spec In Lab Alessandro Limon DO CHEMISTRY ORDERABLES Performing Organization Address [facility]/ZIP Co de Phone Number [facility] [place] [address] * (ABNORMAL) Basic Metabolic Panel (non-fasting) (02/02/2019 6:12 AM EDT) Pathologist [facility] Glucose 146 65 - 199 mg/dL [facility] Comment:Diabetes: >=200 mg/d L plus symptoms Blood Urea Nitrogen 29(H) 10 - 20 mg/dL [facility] Creatinine 1.64(H) 0.80 - 1.50 mg/dL [facility] Sodium 138 135 - 145 mmol/L [facility] Potassium 3.8 3.5 - 5.0 mmol/L [facility] [...] mmol/L [facility] Anion Gap 13 5 - 15 mmol/L [facility] Calcium 8.9 8.5 - 10.5 mg/dL [facility] Est Glomerular Filtration Rate 42(L) >=60 mL/min/1. 73 m?? [facility] Comment: The eGFR was calculated using the CKD-EPI equation. As with all creatinine based estimates of kidney function, eGFR values calculated with the CKD-EPI equation are not accurate in patients with acute kidney failure, extremes of body mass or the acutely ill. http://[employer]/[facility] eGFR 48(L) >=60 mL/min/1. 73 m?? [facility] Comment: The eGFR was calculated using the CKD-EPI equation. As with all creatinine based estimates of kidney function, eGFR values calculated with the CKD-EPI equation are not accurate in patients with acute kidney failure, extremes of body mass or the acutely ill. http://[employer]/[facility] Blood specimen (specimen) 02/02/2019 6:12 AM EDT 02/02/2019 6:33 AM EDT Narrative Resulting Agency Comment Spec In Lab Alessandro Limon DO CHEMISTRY ORDERABLES Performing Organization Address City/State/[facility] Co de Phone Number [facility] [place] [address] * (ABNORMAL) Hemogram (02/02/2019 6:12 AM EDT) White Blood Cell 9.7(H) 4.0 - 9.5 x10(3)/mc L [facility] Red Blood Cell 4.52(L) 4.58 - 5.54 x10(6)/mc L [facility] Hemoglobin 14.0 13.7 - 16.5 gm/dL [facility] Hematocrit 42.4 40.5 - 48.5 % [facility] Mean Cell Volume 93.8(H) 82.9 - 93.1 fL [facility] Mean Cell Hemoglobin 31.0 27.5 - 32.1 pg [facility] Mean Cell Hemoglobin Concentration 33.0 32.0 - 35.7 gm/dL [facility] Platelet 206 145 - 357 x10(3)/mc L [facility] RDW Standard Deviation 45.8(H) 36.0 - 45.0 fL [facility] RDW coefficient of variation 13.8 11.4 - 13.8 % [facility] Mean Platelet Volume 9.9 7.6 - 12.9 fL [facility] NRBC% auto 0.0 % [facility] NRBC Absolute 0.000 0.000 - 0.000 x10(3)/mc L [facility] Blood specimen (specimen) 02/02/2019 6:12 AM EDT 02/02/2019 6:33 AM EDT Narrative Resulting Agency Comment Spec In Lab Alessandro Limon DO HEMATOLOGY ORDERABLE S Performing Organization Address [facility] Co de Phone Number [facility] [place] [address] * POCT Glucose (02/02/2019 6:10 AM EDT) Glucose, POC 139 65 - 199 mg/dL [facility] Comment: Supplemental ranges: <140 mg/dL before meals <180 mg/dL all other times of the day Blood specimen (specimen) 02/02/2019 6:10 AM EDT 02/02/2019 6:10 AM EDT Alessandro Limon DO POINT OF CARE TEST O RDERABLES Performing Organization Address [facility] Co de Phone Number [facility] [place] [address] * Heparin (unfractionated) Level (02/01/2019 11:42 PM EDT) UF Heparin 0.24 IU/mL [facility] Comment: Guidelines for therapeutic unfractionated [...] Lab Anabel Duncan MD HEMATOLOGY ORDERABLE S [facility] [place] [address] * XR Chest PA or AP 1 view (02/01/2019 10:46 PM EDT) Anatomical Region Laterality Modality Chest N/A Digital Radiogra phy Impressions 02/01/2019 10:52 PM EDT Pulmonary vascular congestion and edema likely with trace bilateral effusions. Thank you for letting us participate in the care of this patient. For questions regarding this report, please contact the number below. ? Narrative 02/01/2019 10:52 PM EDT EXAMINATION: XR [...] stable. No acute osseous findings. Procedure Note Aarit Bocanegra MD - 02/01/2019 EXAMINATION: XR CHEST [...] this report, please contact the number below. Nadia Haider APRN IMDanielle DX ORDERABLES * POCT Glucose (02/01/2019 8:41 PM EDT) Glucose, POC 111 65 - 199 mg/dL [facility] Comment: Supplemental ranges: <140 mg/dL before meals <180 mg/dL all other times of the day Blood specimen (specimen) 02/01/2019 8:41 PM EDT 02/01/2019 8:41 PM EDT Alessandro Limon DO POINT OF CARE TEST O RDERABLES [facility] [place] [address] * POCT Glucose (02/01/2019 5:02 PM EDT) Glucose, POC 145 65 - 199 mg/dL [facility] Comment: Supplemental ranges: <140 mg/dL before meals <180 mg/dL all other times of the day Blood specimen (specimen) 02/01/2019 5:02 PM EDT 02/01/2019 5:02 PM EDT Alessandro Limon DO POINT OF CARE TEST O RDERABLES Performing Organization Address [facility]/ZIP Co de Phone Number [facility] [place] [address] * (ABNORMAL) Troponin (02/01/2019 4:50 PM EDT) Troponin-T 0.08(H) 0.00 - 0.00 ng/mL [facility] Comment: The 99th percentile for [...] ischemia ?? New or presumed new significant OC-xinpgre-I wave (ST-T) changes or new left bundle [...] additional sample may be indicated. Reference: Third [place] Definition of Myocardial Infarction. Journal of the [place] [employer] 2012;60:1581-98 Blood specimen (specimen) 02/01/2019 4:50 PM EDT 02/01/2019 5:14 PM EDT Narrative Resulting Agency Comment Spec In Lab Anabel Duncan MD CHEMISTRY ORDERABLES Performing Organization Address [facility]/ZIP Co de Phone Number [facility] [place] [address] * Heparin (unfractionated) Level (02/01/2019 4:50 PM EDT) UF Heparin 0.22 IU/mL [facility] Comment: Guidelines for therapeutic unfractionated [...] MD HEMATOLOGY ORDERABLE S Performing Organization Address [facility] de Phone Number [facility] [place] [address] * (ABNORMAL) Magnesium (02/01/2019 3:04 PM EDT) Pathologist [facility] Magnesium 0.68(L) 0.69 - 1.07 mmol/L [facility] Blood specimen (specimen) 02/01/2019 3:04 PM EDT 02/01/2019 3:25 PM EDT Narrative Resulting Agency Comment Spec In Lab Alessandro Limon DO CHEMISTRY ORDERABLES Performing Organization Address [facility]/ZIP Co de Phone Number [facility] [place] [address] * (ABNORMAL) Basic Metabolic Panel (non-fasting) (02/01/2019 3:04 PM EDT) Glucose 129 65 - 199 mg/dL [facility] Comment:Diabetes: >=200 mg/d L plus symptoms Blood Urea Nitrogen 33(H) 10 - 20 mg/dL [facility] Creatinine 2.05(H) 0.80 - 1.50 mg/dL [facility] Sodium 138 135 - 145 mmol/L [facility] Potassium 4.1 3.5 - 5.0 mmol/L [facility] [...] mmol/L [facility] Anion Gap 13 5 - 15 mmol/L [facility] Calcium 8.9 8.5 - 10.5 mg/dL [facility] Comment:result rechecked-imm Est Glomerular Filtration Rate 32(L) >=60 mL/min/1. 73 m?? [facility] Comment: The eGFR was calculated using the CKD-EPI equation. As with all creatinine based estimates of kidney function, eGFR values calculated with the CKD-EPI equation are not accurate in patients with acute kidney failure, extremes of body mass or the acutely ill. http://[employer]/[facility] eGFR 37(L) >=60 mL/min/1. 73 m?? [facility] Comment: The eGFR was calculated using the CKD-EPI equation. As with all creatinine based estimates of kidney function, eGFR values calculated with the CKD-EPI equation are not accurate in patients with acute kidney failure, extremes of body mass or the acutely ill. http://[employer]/[facility] Blood specimen (specimen) 02/01/2019 3:04 PM EDT 02/01/2019 3:25 PM EDT Narrative Resulting Agency Comment Spec In Lab Alessandro Limon DO CHEMISTRY ORDERABLES Performing Organization Address [facility] de Phone Number [facility] [place] [address] * POCT Glucose (02/01/2019 11:22 AM EDT) Pathologist [facility] Glucose, POC 116 65 - 199 mg/dL [facility] Comment: Supplemental ranges: <140 mg/dL before meals <180 mg/dL all other times of the day Blood specimen (specimen) 02/01/2019 11:22 AM EDT 02/01/2019 11:22 AM EDT Alessandro Limon DO POINT OF CARE TEST O RDERABLES Performing Organization Address [facility] de Phone Number [facility] [place] [address] * Heparin (unfractionated) Level (02/01/2019 10:58 AM EDT) [facility] UF Heparin 0.15 IU/mL [facility] Comment: Guidelines for therapeutic unfractionated [...] MD HEMATOLOGY ORDERABLE S Performing Organization Address [facility]/State/[facility] Co de Phone Number [facility] [place] [address] * ECHO COMPLETE W CONTRAST (02/01/2019 10:38 AM EDT) Anatomical Region Laterality Modality Other 02/01/2019 Narrative 02/01/2019 10:52 AM EDT Amended Report Procedure: ?Transthoracic Echocardiogram Patient: ?MABLE DAVENPORT P ? (Age): 1950(68y) Med Rec#: ? [id number] ?Sex: ?M ? Site Loc: ? [facility] ?Ht / Wt: ??177(cm)/104(kg) Pt. Loc: ?Adult Floor ? BSA: ?2.2 Study Date: ?? 02/01/2019 ?Pt. Type: Inpatient Tape: ? Referring: Anabel Duncan Reading: Gibson Rooney ([id number]) Abstract Writer: Kameron Miller [facility] Diagnosis: *Paroxysmal atrial fibrillation (I48.0) Rhythm: ? [...] ? Mid-Inferior ?Hypokinetic ? Mid-Inferoseptal ?Hypokinetic ? Girard-Septal ? Hypokinetic ? Girard-Anterior ? Normal ? Girard-Lateral ?Hypokinetic ? Girard-Inferior ? Hypokinetic ? Girard-Tip ?Hypokinetic ? This report has been electronically signed by: Gibson Rooney MD ? 02/01/2019 13:30:01 Images reviewed and interpretation verified [facility] Procedure Note Gibson Rooney MD - 02/01/2019 Amended Report Procedure: Transthoracic Echocardiogram Patient: MABLE Gomez DOB(Age): 1950(68y) Med Rec#: [id number] Sex: M Site Loc: [facility] Ht / Wt: 177(cm)/104(kg) Pt. Loc: Adult Floor BSA: 2.2 Study Date: 02/01/2019 Pt. Type: Inpatient Tape: Referring: Anabel Duncan Reading: Gibson Rooney ([id number]) Abstract Writer: Kameron Miller [facility] Diagnosis: *Paroxysmal atrial fibrillation (I48.0) Rhythm: A-Fib [...] Hypokinetic Mid-Posterolateral Akinetic Mid-Inferior Hypokinetic Mid-Inferoseptal Hypokinetic Girard-Septal Hypokinetic Girard-Anterior Normal Girard-Lateral Hypokinetic Girard-Inferior Hypokinetic Girard-Tip Hypokinetic This report has been electronically signed by: Gibson Rooney MD 02/01/2019 13:30:01 Images reviewed and interpretation verified [facility] Anabel uDncan MD ECHO ORDERABLES * (ABNORMAL) Troponin (02/01/2019 7:40 AM EDT) Troponin-T 0.08(H) 0.00 - 0.00 ng/mL [facility] Comment: The 99th percentile for [...] ischemia ?? New or presumed new significant VK-agdbsha-U wave (ST-T) changes or new left bundle [...] additional sample may be indicated. Reference: Third [place] Definition of Myocardial Infarction. Journal of the [place] [employer] 2012;60:1581-98 Blood specimen (specimen) 02/01/2019 7:40 AM EDT 02/01/2019 7:47 AM EDT Narrative Resulting Agency Comment Spec In Lab Nadia Haider APRN CHEMISTRY ORDERABL ES [facility] [place] [address] * (ABNORMAL) Differential, Automated (02/01/2019 7:40 AM EDT) Neutrophil % 77.0 % [facility] Neutrophil Absolute 7.40(H) 1.70 - 6.10 x10(3)/[facility] LAB[facility]AT[facility] Lymph % 13.0 % [facility] Lymphocytes Abs 1.2 0.9 - 3.2 x10(3)/[facility] Monocyte % 8.1 % [facility] Monocyte Abs 0.8 0.3 - 0.9 x10(3)/[facility] LAB[facility] Eos % 1.2 % [facility] Eosinophils Abs 0.1 0.0 - 0.4 x10(3)/[facility] Basophil % 0.5 % [facility] Baso Absolute 0.0 0.0 - 0.1 x10(3)/[facility] LABORATORY Immature Gran % 0.20 % [facility] Comment: Immature granulocytes(IG's)percentage and absolute count will include metamyelocytes, myelocytes, and promyelocytes. Blood smears from CBCs yielding IG's will be scanned manually for concordance. If this scan disagrees with the automated IG or if promyelocytes are noted, a manual differential will be performed. Immature Gran Absolute 0.02 0.00 - 0.04 x10(3)/[facility] LAB[facility]ORY Blood specimen (specimen) 02/01/2019 7:40 AM EDT 02/01/2019 7:47 AM EDT Narrative Resulting Agency Comment Spec In Lab Anabel Duncan MD HEMATOLOGY ORDERABLE S [facility] [place] [address] * (ABNORMAL) Hemogram (02/01/2019 7:40 AM EDT) Pathologist [facility] White Blood Cell 9.6(H) 4.0 - 9.5 x10(3)/mc L [facility] Red Blood Cell 4.50(L) 4.58 - 5.54 x10(6)/mc L [facility] Hemoglobin 14.0 13.7 - 16.5 gm/dL [facility] Hematocrit 41.2 40.5 - 48.5 % [facility] Mean Cell Volume 91.6 82.9 - 93.1 fL [facility] Mean Cell Hemoglobin 31.1 27.5 - 32.1 pg [facility] Mean Cell Hemoglobin Concentration 34.0 32.0 - 35.7 gm/dL [facility] Platelet 206 145 - 357 x10(3)/ L [facility] RDW Standard Deviation 45.5(H) 36.0 - 45.0 [facility] RDW coefficient of variation 13.9(H) 11.4 - 13.8 % [facility] Mean Platelet Volume 10.0 7.6 - 12.9 [facility] NRBC% auto 0.0 % [facility] NRBC Absolute 0.000 0.000 - 0.000 x10(3)/ L [facility] Blood specimen (specimen) 02/01/2019 7:40 AM EDT 02/01/2019 7:47 AM EDT Narrative Resulting Agency Comment Spec In Lab Anabel Duncan MD HEMATOLOGY ORDERABLE S [facility] [place] [address] * POCT Glucose (02/01/2019 6:22 AM EDT) Glucose, POC 121 65 - 199 mg/dL [facility] Comment: Supplemental ranges: <140 mg/dL before meals <180 mg/dL all other times of the day Blood specimen (specimen) 02/01/2019 6:22 AM EDT 02/01/2019 6:22 AM EDT Anabel Duncan MD POINT OF CARE TEST O TED [facility] [place] [address] * (ABNORMAL) BLOOD GAS 2 ARTERIAL (02/01/2019 4:14 AM EDT) pH, Arterial 7.46(H) 7.35 - 7.45 [facility] PCO2, Arterial 33(L) 35 - 45 mmHg [facility] PO2, Arterial 122(H) 85 - 104 mmHg [facility] Bicarbonate, Arterial 22.9 20.0 - 26.0 mmol/L [facility] Base Excess, Arterial -1.0 -3.0 - 3.0 mmol/L [facility] Hgb Blood Gas 14.9 13.7 - 16.5 gm/dL [facility] Oxyhemoglobin, Arterial 97.4(H) 94.0 - 97.0 % [facility] Carboxyhemoglob in, Arterial 0.7 % [facility] Comment: Nonsmokers: 0.5-1.5% COHB Smokers: Variable, but usually less than 10% Toxic: 20-30% COHB Lethal: Greater than 60% COHB Methemoglobin, Arterial 0.3 <=1.5 % [facility] Na Whole Blood 134(L) 135 - 145 mmol/L [facility] K Whole Blood 3.7 3.5 - 5.0 mmol/L [facility] Comment: Please note: Patients with WBC >100,000 may have falsely elevated Potassium levels. Contact the Clinical Chemistry Laboratory if there are any questions. ICa Whole Blood 1.16 1.15 - 1.33 mmol/L [facility] Comment: Note: ??Total bilirubin higher than 20 mg/dL may lead to falsely low ionized calcium. CL Whole Blood 103 98 - 107 mmol/L [facility] Gluc Whole Bld 126 65 - 199 mg/dL [facility] Comment:Diabetes: >=200 mg/d L plus symptoms. Lactate WB 1.6 0.5 - 2.2 mmol/L [facility] FIO2 Art 60 % [facility] PF Ratio Art 203 [facility] Blood specimen (specimen) 02/01/2019 4:14 AM EDT 02/01/2019 4:14 AM EDT Anabel Duncan MD POINT OF CARE TEST O RDERABLES Performing Organization Address [facility] de Phone Number [facility] [place] [address] * Heparin (unfractionated) Level (02/01/2019 3:10 AM EDT) UF Heparin 0.17 IU/mL [facility] Comment: Guidelines for therapeutic unfractionated [...] MD HEMATOLOGY ORDERABLE S Performing Organization Address [facility] [place] [address] * (ABNORMAL) Differential, Automated (02/01/2019 3:10 AM EDT) Pathologist [facility] Neutrophil % 77.6 % [facility] Neutrophil Absolute 8.18(H) 1.70 - 6.10 x10(3)/ L [facility] Lymph % 11.9 % [facility] Lymphocytes Abs 1.2 0.9 - 3.2 x10(3)/ L [facility] Monocyte % 8.5 % [facility] Monocyte Abs 0.9 0.3 - 0.9 x10(3)/[facility] LABOR[facility] Eos % 1.2 % [facility] Eosinophils Abs 0.1 0.0 - 0.4 x10(3)/[facility] LABOR[facility] Basophil % 0.4 % [facility] Baso Absolute 0.0 0.0 - 0.1 x10(3)/ L [facility] Immature Gran % 0.40 % [facility] Comment: Immature granulocytes(IG's)percentage and absolute count will include metamyelocytes, myelocytes, and promyelocytes. Blood smears from CBCs yielding IG's will be scanned manually for concordance. If this scan disagrees with the automated IG or if promyelocytes are noted, a manual differential will be performed. Immature Gran Absolute 0.04 0.00 - 0.04 x10(3)/ L [facility] Blood specimen (specimen) 02/01/2019 3:10 AM EDT 02/01/2019 3:20 AM EDT Narrative Resulting Agency Comment Spec In Lab Anabel Duncan MD [place] [address] * (ABNORMAL) Hemogram (02/01/2019 3:10 AM EDT) [facility] White Blood Cell 10.5(H) 4.0 - 9.5 x10(3)/[facility] LAB[facility] Red Blood Cell 4.33(L) 4.58 - 5.54 x10(6)/ L [facility] Hemoglobin 13.5(L) 13.7 - 16.5 gm/dL [facility] Hematocrit 39.7(L) 40.5 - 48.5 % [facility] Mean Cell Volume 91.7 82.9 - 93.1 [facility] Mean Cell Hemoglobin 31.2 27.5 - 32.1 pg [facility] Mean Cell Hemoglobin Concentration 34.0 32.0 - 35.7 gm/dL [facility] Platelet 215 145 - 357 x10(3)/[facility] LABORATORY RDW Standard Deviation 45.5(H) 36.0 - 45.0 [facility] RDW coefficient of variation 13.8 11.4 - 13.8 % [facility] Mean Platelet Volume 10.0 7.6 - 12.9 [facility] NRBC% auto 0.0 % [facility] NRBC Absolute 0.000 0.000 - 0.000 x10(3)/[facility] LAB[facility] Blood specimen (specimen) 02/01/2019 3:10 AM EDT 02/01/2019 3:20 AM EDT Narrative Resulting Agency Comment Spec In Lab Anabel Duncan MD HEMATOLOGY ORDERABLE S [facility] [place] [address] * (ABNORMAL) Basic Metabolic Panel (non-fasting) (02/01/2019 3:10 AM EDT) [facility] Glucose 116 65 - 199 mg/dL [facility] Comment:Diabetes: >=200 mg/d L plus symptoms Blood Urea Nitrogen 29(H) 10 - 20 mg/dL [facility] Creatinine 1.66(H) 0.80 - 1.50 mg/dL [facility] Sodium 140 135 - 145 mmol/L [facility] [...] Chloride 108(H) 98 - 107 mmol/L [facility] Carbon Dioxide 21(L) 22 - 31 mmol/L [facility] LABORATORY Anion Gap 11 5 - 15 mmol/L [facility] Calcium 7.1(L) 8.5 - 10.5 mg/dL [facility] Comment:result rechecked- Est Glomerular Filtration Rate 41(L) >=60 mL/min/1. 73 m?? [facility] Comment: The eGFR was calculated using the CKD-EPI equation. As with all creatinine based estimates of kidney function, eGFR values calculated with the CKD-EPI equation are not accurate in patients with acute kidney failure, extremes of body mass or the acutely ill. http://[employer]/[facility] ATOKAnkf eGFR 48(L) >=60 mL/min/1. 73 m?? [facility] Comment: The eGFR was calculated using the CKD-EPI equation. As with all creatinine based estimates of kidney function, eGFR values calculated with the CKD-EPI equation are not accurate in patients with acute kidney failure, extremes of body mass or the acutely ill. [email or web address]/DHMCnkf Blood specimen (specimen) 02/01/2019 3:10 AM EDT 02/01/2019 3:20 AM EDT Narrative Resulting Agency Comment Spec In Lab Anabel Duncan MD CHEMISTRY ORDERABLES [facility] [place] [address] * EKG 12 Lead (02/01/2019 1:00 AM EDT) Ventricular rate 63 BPM MUSE SYSTEM Atrial Rate 63 BPM MUSE SYSTEM P-R Interval 184 ms MUSE SYSTEM QRS Duration 108 ms MUSE SYSTEM Q-T Interval 442 ms MUSE SYSTEM QTC Calculated (Bezet) 452 ms MUSE SYSTEM Calculated P [place] 72 degrees MUSE SYSTEM Calculated R [place] -54 degrees MUSE SYSTEM Calculated T [place] 118 degrees MUSE SYSTEM INTERPRETATION Sinus rhythm with Premature atrial complexes Left axis deviation ST & T wave abnormality, consider anterolateral ischemia Abnormal ECG When compared with ECG of 31-JAN-2019 18:31, (unconfirmed) Atrial bigeminy is no longer present Confirmed by MD Jonatan, Guille Almonte ([id number]) on 02/01/2019 3:56:21 PM MUSE SYSTEM 02/01/2019 1:00 AM EDT 02/01/2019 3:56 PM EDT Nadia Haider APRN ECG ORDERABLES MUSE SYSTEM * (ABNORMAL) Troponin (01/31/2019 11:33 PM EDT) Troponin-T 0.07(H) 0.00 - 0.00 ng/mL [facility] Comment: The 99th percentile for [...] ischemia ?? New or presumed new significant YP-elnhgmy-I wave (ST-T) changes or new left bundle [...] additional sample may be indicated. Reference: Third [place] Definition of Myocardial Infarction. Journal of the [place] [employer] 2012;60:1581-98 Blood specimen (specimen) 01/31/2019 11:33 PM EDT 01/31/2019 11:36 PM EDT Narrative Resulting Agency Comment Spec In Lab Anabel Duncan MD CHEMISTRY ORDERABLES [facility] [place] [address] * XR Chest PA or AP 1 view (01/31/2019 10:42 PM EDT) Anatomical Region Laterality Modality Chest N/A Digital Radiogra phy Impressions 02/01/2019 12:08 AM EDT Pulmonary vascular congestion and edema with trace bilateral pleural effusions. Thank you for letting us participate in the care of this patient. For questions regarding this report, please contact the number below. ? Narrative 02/01/2019 12:08 AM EDT EXAMINATION: XR [...] this report, please contact the number below. Nadia Haider APRN IMG DX ORDERABLES * POCT Glucose (01/31/2019 8:50 PM EDT) Glucose, POC 145 65 - 199 mg/dL [facility] Comment: Supplemental ranges: <140 mg/dL before meals <180 mg/dL all other times of the day Blood specimen (specimen) 01/31/2019 8:50 PM EDT 01/31/2019 8:50 PM EDT Anabel Duncan MD POINT OF CARE TEST O RDERABLES [facility] [place] [address] * (ABNORMAL) Differential, Automated (01/31/2019 8:36 PM EDT) Neutrophil % 81.4 % [facility] Neutrophil Absolute 9.84(H) 1.70 - 6.10 x10(3)/mc L [facility] Lymph % 8.6 % [facility] Lymphocytes Abs 1.0 0.9 - 3.2 x10(3)/[facility]OR[facility] Monocyte % 8.5 % [facility] Monocyte Abs 1.0(H) 0.3 - 0.9 x10(3)/[facility] Eos % 0.8 % [facility] Eosinophils Abs 0.1 0.0 - 0.4 x10(3)/[facility] Basophil % 0.3 % [facility] Baso Absolute 0.0 0.0 - 0.1 x10(3)/[facility] Immature Gran % 0.40 % [facility] Comment: Immature granulocytes(IG's)percentage and absolute count will include metamyelocytes, myelocytes, and promyelocytes. Blood smears from CBCs yielding IG's will be scanned manually for concordance. If this scan disagrees with the automated IG or if promyelocytes are noted, a manual differential will be performed. Immature Gran Absolute 0.05(H) 0.00 - 0.04 x10(3)/[facility] Blood specimen (specimen) 01/31/2019 8:36 PM EDT 01/31/2019 8:40 PM EDT Narrative Resulting Agency Comment Spec In Lab Anabel Duncan MD HEMATOLOGY ORDERABLE S Performing Organization Address City/State/[facility] Co de Phone Number [facility] [place] [address] * (ABNORMAL) Hemogram (01/31/2019 8:36 PM EDT) White Blood Cell 12.1(H) 4.0 - 9.5 x10(3)/[facility] Red Blood Cell 4.84 4.58 - 5.54 x10(6)/[facility] Hemoglobin 15.2 13.7 - 16.5 gm/dL [facility] Hematocrit 44.7 40.5 - 48.5 % [facility] Mean Cell Volume 92.4 82.9 - 93.1 fL [facility] Mean Cell Hemoglobin 31.4 27.5 - 32.[address] [facility] Mean Cell Hemoglobin Concentration 34.0 32.0 - 35.7 gm/dL [facility] Platelet 238 145 - 357 x10(3)/mc L [facility] RDW Standard Deviation 45.2(H) 36.0 - 45.0 fL [facility] RDW coefficient of variation 13.6 11.4 - 13.8 % [facility] Mean Platelet Volume 9.3 7.6 - 12.9 fL [facility] NRBC% auto 0.0 % [facility] NRBC Absolute 0.000 0.000 - 0.000 x10(3)/ L [facility] Blood specimen (specimen) 01/31/2019 8:36 PM EDT 01/31/2019 8:40 PM EDT Narrative Resulting Agency Comment Spec In Lab Anabel Duncan MD HEMATOLOGY ORDERABLE S Performing Organization Address City/State/[facility] Co de Phone Number [facility] [place] [address] * Heparin (unfractionated) Level (01/31/2019 8:36 PM EDT) UF Heparin <0.04 IU/mL [facility] Comment: Guidelines for therapeutic unfractionated [...] MD HEMATOLOGY ORDERABLE S Performing Organization Address [facility] Co de Phone Number [facility] [place] [address] * EKG 12 Lead (01/31/2019 4:28 PM EDT) Ventricular rate 70 BPM MUSE SYSTEM Atrial Rate 70 BPM MUSE SYSTEM P-R Interval 218 ms MUSE SYSTEM QRS Duration 106 ms MUSE SYSTEM Q-T Interval 416 ms MUSE SYSTEM QTC Calculated (Bezet) 449 ms MUSE SYSTEM Calculated P [place] 46 degrees MUSE SYSTEM Calculated R [place] -61 degrees MUSE SYSTEM Calculated T [place] 131 degrees MUSE SYSTEM INTERPRETATION Sinus rhythm with 1st degree A-V block Occasional Premature ventricular complexes and Premature atrial complexes Left axis deviation ST & T wave abnormality, consider anterolateral ischemia Abnormal ECG When compared with ECG of 31-JAN-2019 11:21, (unconfirmed) Sinus rhythm has replaced Atrial flutter T wave inversion now evident in Anterior leads Confirmed by MD Jonatan, Guille Almonte ([id number]) on 02/01/2019 3:45:40 PM MUSE SYSTEM 01/31/2019 4:28 PM EDT 02/01/2019 3:45 PM EDT Anabel Duncan MD ECG ORDERABLES Performing Organization Address [facility] Co de Phone Number MUSE SYSTEM * CK (01/31/2019 4:20 PM EDT) Creatine Kinase 127 0 - 200 unit/L [facility] Blood specimen (specimen) Venous Draw / Unknown 01/31/2019 4:20 PM EDT 01/31/2019 6:02 PM EDT Narrative Resulting Agency Comment Spec In Lab Anabel Duncan MD CHEMISTRY ORDERABLES Performing Organization Address [facility]/ZIP Co de Phone Number [facility] [place] [address] * Lavender Tube HOLD (01/31/2019 4:20 PM EDT) Lavender Hold Sample in lab. [facility] Blood specimen (specimen) Venous Draw / Unknown 01/31/2019 4:20 PM EDT 01/31/2019 4:37 PM EDT Rocky Wong MD HEMATOLOGY ORDERABL ES Performing Organization Address [facility] Co de Phone Number [facility] [place] [address] * (ABNORMAL) Basic Metabolic Panel (non-fasting) (01/31/2019 4:20 PM EDT) Glucose 131 65 - 199 mg/dL [facility] Comment:Diabetes: >=200 mg/d L plus symptoms Blood Urea Nitrogen 28(H) 10 - 20 mg/dL [facility] Creatinine 2.12(H) 0.80 - 1.50 mg/dL [facility] Sodium 139 135 - 145 mmol/L [facility] Potassium 3.9 3.5 - 5.0 mmol/L [facility] Comment: Please note: ??Patients with WBC >100,000 may have falsely elevated Potassium levels. ??For accurate Potassium quantification in these patients send serum separator tube (gold top) for subsequent determinations. ??Contact the Clinical Chemistry Laboratory if there are any questions. Chloride 100 98 - 107 mmol/L [facility] Carbon Dioxide 27 22 - 31 mmol/L [facility] Anion Gap 12 5 - 15 mmol/L [facility] Calcium 9.6 8.5 - 10.5 mg/dL [facility] Est Glomerular Filtration Rate 31(L) >=60 mL/min/1. 73 m?? [facility] Comment: The eGFR was calculated using the CKD-EPI equation. As with all creatinine based estimates of kidney function, eGFR values calculated with the CKD-EPI equation are not accurate in patients with acute kidney failure, extremes of body mass or the acutely ill. http://[employer]/[facility] ATOKAnkf eGFR 35(L) >=60 mL/min/1. 73 m?? [facility] Comment: The eGFR was calculated using the CKD-EPI equation. As with all creatinine based estimates of kidney function, eGFR values calculated with the CKD-EPI equation are not accurate in patients with acute kidney failure, extremes of body mass or the acutely ill. http://[employer]/[facility]OK[facility]kf Blood specimen (specimen) 01/31/2019 4:20 PM EDT 01/31/2019 4:37 PM EDT Narrative Resulting Agency Comment Spec In Lab Anabel Duncan MD CHEMISTRY ORDERABLES [facility] [place] [id number] * (ABNORMAL) Troponin (01/31/2019 4:20 PM EDT) Troponin-T 0.04(H) 0.00 - 0.00 ng/mL [facility] Comment: Called by: MANE, Read [...] ischemia ?? New or presumed new significant VN-takixpg-W wave (ST-T) changes or new left bundle [...] additional sample may be indicated. Reference: Third [place] Definition of Myocardial Infarction. Journal of the [place] [employer] 2012;60:1581-98 Blood specimen (specimen) 01/31/2019 4:20 PM EDT 01/31/2019 4:37 PM EDT Narrative Resulting Agency Comment Spec In Lab Mundo Yeung MD CHEMISTRY ORDERABLES [facility] [place] [address] * US Renal Transplant Left (01/31/2019 2:34 [...] 02:47 pm) PATIENT INFO: ID #: ? [id number] ? : [birth year] (68 yrs) Name: ? ETHEL Gomez MABLE ? Visit Date:01/31/2019 02:30 pm PERFORMED BY: Performed By: ? Osmar Dowd RDMS Attending: ?Kerry GERBER, Jolly Toth Referred By: ?MUNDO YEUNG Location: ? [place] SERVICE(S) PROVIDED: ??URTPL - Renal Transplant - Left - [id number] INDICATIONS: ??h/o kidney transplant in 2016. decreased [...] ?Patent Mid: ? Patent Distal: ?Patent LEFT [place] Iliac ? Waveform ?? Artery To Anastomos ?is Proximal: ?Patent LEFT [place] Iliac ? Waveform ?Vein To Anastomos ?is Proximal: ?Patent PARENCHYMAL EVALUATION: RIGHT ?Arcuate ? RI ??Waveform ?Artery Upper Pole: ?0.6 Patent Mid Pole: ?0.6 Patent Lower Pole: ?0.6 Patent URINARY BLADDER: Comment: ?Partially distended and unremarkable. Procedure Note Jolly Payne MD - 01/31/2019 Transplant (Signed Final 01/31/2019 02:47pm) PATIENT INFO: ID #: [id number] : [birth year] (68 yrs) Name: ETHEL BOLDEN Visit Date:01/31/2019 02:30 pm PERFORMED BY: Performed By: Osmar Dowd RDMS Attending: Jolly Payne MD Referred By: MUNDO YEUNG Location: [place] SERVICE(S) PROVIDED: URTPL - Renal Transplant - Left - [id number] INDICATIONS: h/o kidney transplant in 2016. decreased [...] Proximal: Patent Mid: Patent Distal: Patent LEFT [place] Iliac Waveform Artery To Anastomos is Proximal: Patent LEFT [place] Iliac Waveform Vein To Anastomos is Proximal: [...] Urine 2 0 - 3 /HPF [facility] WBC, Urine 1 0 - 3 /HPF [facility] Urine specimen (specimen) 01/31/2019 11:57 AM EDT 01/31/2019 12:34 PM EDT Narrative Resulting Agency Comment Spec In Lab Rocky Wong MD URINE ORDERABLES Performing Organization Address [facility] Co de Phone Number [facility] [place] [address] * Gold Tube HOLD (01/31/2019 11:57 AM EDT) Gold Hold Sample in lab. [facility] Blood specimen (specimen) Venous Draw / Unknown 01/31/2019 11:57 AM EDT 01/31/2019 12:31 PM EDT Rocky Wong MD CHEMISTRY ORDERABLE S Performing Organization Address [facility] Co de Phone Number [facility] [place] [phone] * Blue Tube HOLD (01/31/2019 11:57 AM EDT) Blue Hold Sample in lab. [facility] Blood specimen (specimen) Venous Draw / Unknown 01/31/2019 11:57 AM EDT 01/31/2019 12:32 PM EDT Rocky Wong MD HEMATOLOGY ORDERABL ES Performing Organization Address [facility] [place] [address] * (ABNORMAL) Differential, Automated (01/31/2019 11:57 AM EDT) Pathologist [facility] Neutrophil % 74.9 % [facility] Neutrophil Absolute 8.74(H) 1.70 - 6.10 x10(3)/ L [facility] Lymph % 15.8 % [facility] Lymphocytes Abs 1.8 0.9 - 3.2 x10(3)/mc L [facility] Monocyte % 7.6 % [facility] Monocyte Abs 0.9 0.3 - 0.9 x10(3)/ L [facility] Eos % 1.0 % [facility] Eosinophils Abs 0.1 0.0 - 0.4 x10(3)/[facility] Basophil % 0.4 % [facility] Baso Absolute 0.0 0.0 - 0.1 x10(3)/ L [facility] Immature Gran % 0.30 % [facility] Comment: Immature granulocytes(IG's)percentage and absolute count will include metamyelocytes, myelocytes, and promyelocytes. Blood smears from CBCs yielding IG's will be scanned manually for concordance. If this scan disagrees with the automated IG or if promyelocytes are noted, a manual differential will be performed. Immature Gran Absolute 0.04 0.00 - 0.04 x10(3)/ L [facility] Blood specimen (specimen) 01/31/2019 11:57 AM EDT 01/31/2019 12:30 PM EDT Narrative Resulting Agency Comment Spec In Lab Rocky Wong MD HEMATOLOGY ORDERABL ES [facility] [place] [address] * (ABNORMAL) Hemogram (01/31/2019 11:57 AM EDT) [facility] White Blood Cell 11.7(H) 4.0 - 9.5 x10(3)/[facility] Red Blood Cell 5.41 4.58 - 5.54 x10(6)/ L [facility] Hemoglobin 17.0(H) 13.7 - 16.5 gm/dL [facility] Hematocrit 49.8(H) 40.5 - 48.5 % [facility] Mean Cell Volume 92.1 82.9 - 93.1 fL [facility] Mean Cell Hemoglobin 31.4 27.5 - 32.1 pg [facility] Mean Cell Hemoglobin Concentration 34.1 32.0 - 35.7 gm/dL [facility] Platelet 295 145 - 357 x10(3)/[facility] RDW Standard Deviation 46.0(H) 36.0 - 45.0 fL [facility] RDW coefficient of variation 13.9(H) 11.4 - 13.8 % [facility] Mean Platelet Volume 9.9 7.6 - 12.9 [facility] NRBC% auto 0.0 % [facility] NRBC Absolute 0.000 0.000 - 0.000 x10(3)/[facility] Blood specimen (specimen) 01/31/2019 11:57 AM EDT 01/31/2019 12:30 PM EDT Narrative Resulting Agency Comment Spec In Lab Rocky Wong MD HEMATOLOGY ORDERABL ES [facility] [place] [address] * Electrolytes, urine, random (01/31/2019 11:57 AM EDT) Sodium, Urine <20 mmol/L [facility] Potassium, Urine 39 mmol/L [facility] Chloride, Urine <20 mmol/L [facility] Urine specimen (specimen) 01/31/2019 11:57 AM EDT 01/31/2019 12:34 PM EDT Narrative Resulting Agency Comment Spec In Lab Mundo Yeung MD URINE ORDERABLES Performing Organization Address [facility]/ZIP Co de Phone Number [facility] [place] [address] * (ABNORMAL) Troponin (01/31/2019 11:57 AM EDT) Troponin-T 0.03(H) 0.00 - 0.00 ng/mL [facility] Comment: Called by: GIACOMO, Read [...] ischemia ?? New or presumed new significant BV-vpdjlop-S wave (ST-T) changes or new left bundle [...] additional sample may be indicated. Reference: Third [place] Definition of Myocardial Infarction. Journal of the [place] [employer] 2012;60:1581-98 Blood specimen (specimen) 01/31/2019 11:57 AM EDT 01/31/2019 12:30 PM EDT Narrative Resulting Agency Comment Spec In Lab Mundo Yeung MD CHEMISTRY ORDERABLES Performing Organization Address City/[facility]/ZIP Co de Phone Number [facility] [place] [address] * (ABNORMAL) Urinalysis with reflex Culture (01/31/2019 [...] [facility] pH, Urn (dipstick) 5.0 5.0 - 8.0 [facility] Blood, Urine Dipstick Negative Negative mg/dL [facility] Ketone, Urine Dipstick Negative Negative mg/dL [facility] Nitrite, Urine Dipstick Negative Negative [facility] Leukocytes, Urine Dipstick Negative Negative [facility] Appearance, Urine Dipstick Clear Clear [facility] Specific [place] Urine Automated 1.023 1.002 - 1.030 [facility] Color, Urine Dipstick Yellow Yellow [facility] Reflex to Culture No [facility] Urine specimen (specimen) 01/31/2019 11:57 AM EDT 01/31/2019 12:34 PM EDT Narrative Resulting Agency Comment Spec In Lab Mundo Yeung MD URINE ORDERABLES [facility] [place] [address] * (ABNORMAL) Basic Metabolic Panel (non-fasting) (01/31/2019 11:57 AM EDT) Glucose 151 65 - 199 mg/dL [facility] Comment:Diabetes: >=200 mg/d L plus symptoms Blood Urea Nitrogen 29(H) 10 - 20 mg/dL [facility] Creatinine 1.82(H) 0.80 - 1.50 mg/dL [facility] Sodium 136 135 - 145 mmol/L [facility] Potassium 4.1 3.5 - 5.0 mmol/L [facility] Comment: Please note: ??Patients with WBC >100,000 may have falsely elevated Potassium levels. ??For accurate Potassium quantification in these patients send serum separator tube (gold top) for subsequent determinations. ??Contact the Clinical Chemistry Laboratory if there are any questions. Chloride 96(L) 98 - 107 mmol/L [facility] Carbon Dioxide 26 22 - 31 mmol/L [facility] Anion Gap 14 5 - 15 mmol/L [facility] Calcium 10.1 8.5 - 10.5 mg/dL [facility] Est Glomerular Filtration Rate 37(L) >=60 mL/min/1. 73 m?? [facility] Comment: The eGFR was calculated using the CKD-EPI equation. As with all creatinine based estimates of kidney function, eGFR values calculated with the CKD-EPI equation are not accurate in patients with acute kidney failure, extremes of body mass or the acutely ill. http://[employer]/[facility]MCnkf eGFR 43(L) >=60 mL/min/1. 73 m?? [facility] Comment: The eGFR was calculated using the CKD-EPI equation. As with all creatinine based estimates of kidney function, eGFR values calculated with the CKD-EPI equation are not accurate in patients with acute kidney failure, extremes of body mass or the acutely ill. http://[employer]/DHMCnkf Blood specimen (specimen) 01/31/2019 11:57 AM EDT 01/31/2019 12:30 PM EDT Narrative Resulting Agency Comment Spec In Lab Mundo Yeung MD CHEMISTRY ORDERABLES [facility] [place] [address] * EKG 12 Lead (01/31/2019 11:21 AM EDT) Ventricular rate 147 BPM MUSE SYSTEM Atrial Rate 294 BPM MUSE SYSTEM QRS Duration 100 ms MUSE SYSTEM Q-T Interval 334 ms MUSE SYSTEM QTC Calculated (Bezet) 522 ms MUSE SYSTEM Calculated R [place] -58 degrees MUSE SYSTEM Calculated T [place] 68 degrees MUSE SYSTEM INTERPRETATION Atrial flutter with 2:1 A-V conduction Left anterior fascicular block Nonspecific ST and T wave abnormality Abnormal ECG When compared with ECG of 04-NOV-2017 12:43, Significant changes have occurred Confirmed by MD SARA, LARRY ([id number]) on 01/31/2019 5:35:44 PM MUSE SYSTEM 01/31/2019 11:2 1 AM EDT 01/31/2019 5:35 PM EDT Mundo Yeung MD ECG ORDERABLES MUSE SYSTEM documented in this encounter Visit Diagnoses Diagnosis Atrial fibrillation with RVR - had flutter initially, then fib- Primary Atrial fibrillation Paroxysmal atrial fibrillation Atrial fibrillation Non-ST elevation myocardial infarction (NSTEMI) Acute myocardial infarction, subendocardial infarction, episode of care unspecified Elevated troponin level Other abnormal blood chemistry Atrial fibrillation with RVR - had flutter initially, then fib Atrial fibrillation documented in this encounter Admitting [...] Oral, 3 TIMES DAILY, First dose on 01/31/19 at 2100, Until Discontinued, Routine Given 02/05/2019 [...] Given 02/03/2019 9:16 AM EDT 81 mg aspirin tablet 325 mg 325 mg, Oral, ONCE, 1 dose, On Thu01/31/19 at 1638, STAT Given 01/31/2019 5:10 PM EDT 325 mg atorvastatin (LIPITOR) tablet 40 mg 40 [...] Given 01/31/2019 9:07 PM EDT 0.5 mcg calcium carbonate (Tums) chewable tablet 1,000 mg 1,000 mg, Oral, ONCE, 1 dose, On Thu01/31/19 at 1641, STAT Given 01/31/2019 5:10 PM EDT 1,000 mg clopidogrel (PLAVIX) tablet 75 mg 75 mg, [...] the duration of the active insulin., Routine dilTIAZem (CARDIZEM) injection 5 mg/mL 10 mg, Intravenous, ONCE, 1 dose, On Thu01/31/19 at 1401, STAT Given 01/31/2019 3:14 PM EDT 10 mg dilTIAZem (CARDIZEM) injection 5 mg/mL 25 mg, Intravenous, ONCE, 1 dose, On Thu01/31/19 at 1532, STAT Given 01/31/2019 3:44 PM EDT 25 mg furosemide (LASIX) 100 mg in sodium chloride 0.9% 100 mL infusion 10 mg/hr (10 mL/hr), Intravenous, CONTINUOUS, Starting on Thu02/03/19 at 1630, Until Thu02/04/19 at 1250, Routine New Bag 02/04/2019 6:12 AM EDT 10 mg/hr 10 mL/hr New Bag 02/03/2019 6:33 PM EDT 10 mg/hr 10 mL/hr furosemide (LASIX) injection 20 mg 20 mg, Intravenous, ONCE, 1 dose, On Thu02/01/19 at 0615 Given 02/01/2019 6:24 AM EDT 20 mg furosemide (LASIX) injection 20 mg 20 mg, Intravenous, ONCE, 1 dose, On Thu02/02/19 at 1600 Given 02/02/2019 3:39 PM EDT 20 mg furosemide (LASIX) injection 20 mg 20 mg, Intravenous, ONCE, 1 dose, On Thu02/04/19 at 1745 Given 02/04/2019 5:38 PM EDT 20 mg glipiZIDE (GLUCOTROL XL) CR tablet 5 mg [...] = 37.5 grams., Routine heparin (porcine) injection 0-4,000 Units 0-4,000 Units, Intravenous, BOLUS PER HEPARIN PROTOCOL, Starting on Thu01/31/19 at 1819, Until Laura 02/03/19 at 1809, Per Protocol, START ADJUSTMENT SCHEDULE 6 HOURS AFTER STARTING INFUSION Heparin UFH Level between 0.1 - 0.29 IU/mL: Bolus 2,000 units Heparin UFH Level less than 0.1 IU/mL: Bolus 4,000 units, Routine Given 02/02/2019 1:25 PM EDT 2,000 Units Given 02/02/2019 12:17 AM EDT 2,000 Units Given 02/01/2019 6:12 PM EDT 2,000 Units heparin (porcine) injection 4,000 Units 4,000 Units, Intravenous, ONCE, 1 dose, On Thu01/31/19 at 1822, INITIAL LOADING DOSE Maximum loading dose 4,000 units., Routine Given 01/31/2019 9:36 PM EDT 4,000 Units heparin 25,000 units in dextrose 5% 500 mL infusion 0-5,000 Units/hr (0-100 mL/hr), Intravenous, CONTINUOUS, Starting [...] Indication: ACS (STEMI vs NSTEMI vs UA) Rate/Dose Change 02/03/2019 6:07 PM EDT 2,000 Units/hr 40 mL/hr New Bag 02/03/2019 2:49 PM EDT 2,000 Units/hr 40 mL/hr New Bag 02/03/2019 2:32 AM EDT 2,000 Units/hr 40 mL/hr insulin lispro (HumaLOG) VIAL injection 1-4 Units 1-4 Units, Subcutaneous, 3 TIMES DAILY BEFORE MEALS, First dose on 01/31/19 at 1900, Until Discontinued, CORRECTION BOLUS Sensitive [...] Given 02/04/2019 12:12 PM EDT 1 Units ipratropium (ATROVENT) 0.02 % nebulizer solution 0.5 mg 0.5 mg, Nebulization, ONCE, 1 dose, On Thu02/01/19 at 2245, Currently having SOB, tachypnea, and wheezing, Routine Given 02/01/2019 10:43 PM EDT 0.5 mg ipratropium-albuterol (DUONEB) 0.5 mg-3 mg(2.5 mg base)/3 mL nebulizer solution 3 mL 3 mL, Nebulization, ONCE, 1 dose, On Thu02/02/19 at 1545, STAT Given 02/02/2019 3:39 PM EDT 3 mLs ipratropium-albuterol (DUONEB) 0.5 mg-3 mg(2.5 mg base)/3 mL nebulizer solution 3 mL 3 mL, Nebulization, ONCE, 1 dose, On Thu02/03/19 at 0245, STAT Given 02/03/2019 2:45 AM EDT 3 mLs ipratropium-albuterol (DUONEB) 0.5 mg-3 mg(2.5 mg base)/3 mL nebulizer solution 3 mL 3 mL, Nebulization, 4 TIMES DAILY PRN, Starting on Laura 02/03/19 at 0810, Until 02/05/19 at 1804, Wheezing, Routine lactated Ringers 1,000 mL IV bolus at 2,000 mL/hr, Intravenous, ONCE, 1 dose, On Thu01/31/19 at 1156 New Bag 01/31/2019 12:08 PM EDT 2000 mL/hr levothyroxine (SYNTHROID) tablet 137 mcg 137 mcg, Oral, DAILY, First dose on Thu02/01/19 at 0900, Until Discontinued, Routine Given 02/05/2019 9:28 AM EDT 137 mcg Given 02/04/2019 8:26 AM EDT 137 mcg Given 02/03/2019 9:49 AM EDT 137 mcg metoprolol succinate (TOPROL-XL) XL tablet 25 mg 25 mg, Oral, DAILY, First dose on 02/05/19 at 1200, Until Discontinued, DO NOT CRUSH OR OPEN, Routine Given 02/05/2019 12:12 PM EDT 25 mg metoprolol tartrate (LOPRESSOR) tablet 12.5 mg 12.5 mg, Oral, EVERY 6 HOURS SCHEDULED, First dose on Thu01/31/19 at 1800, Until Discontinued, Hold for SBP <100, HR <55, Routine Given 02/05/2019 6:07 AM EDT 12.5 mg Given 02/04/2019 11:37 PM EDT 12.5 mg Given 02/04/2019 5:49 PM EDT 12.5 mg mycophenolate (CELLCEPT) capsule 250 mg 250 [...] SL tablet 0.4 mg 0.4 mg, Sublingual, ONCE, 1 dose, On Thu01/31/19 at 1802, SL nitroglycerin may be repeated every 5 minutes as needed up to 3 doses, STAT Given 01/31/2019 6:09 PM EDT 0.4 mg nitroGLYcerin (NITROSTAT) SL tablet 0.4 mg 0.4 mg, Sublingual, EVERY 5 MIN PRN, Chest pain, Starting on Thu01/31/19 at 1929, Until 02/05/19 at 1804, SL nitroglycerin may be repeated every 5 minutes as needed up to 3 doses pantoprazole (PROTONIX) tablet 40 mg 40 mg, Oral, DAILY, First dose on Thu01/31/19 at 1641, Until Discontinued, DO NOT CRUSH OR OPEN Given 02/05/2019 9:28 AM EDT 40 mg Given 02/04/2019 8:25 AM EDT 40 mg Given 02/03/2019 9:16 AM EDT 40 mg perflutren protein-A microspheres (OPTISON) 0.22 mg/mL injection 1 mL 1 mL, Intravenous, ONCE PRN, 1 dose, Starting on Thu02/01/19 at 1038, Until Thu02/01/19 at 0918, for enhancement of sub-optimal echo images, Echo Lab (Intra-Procedure), Routine Given 02/01/2019 9:18 AM EDT 1 mL potassium chloride (K-DUR/KLOR-CON) extended release tablet 40 mEq 40 mEq, Oral, ONCE, 1 dose, On Thu02/01/19 at 0945, 20 mEq tablet may be dissolved in water for administration, Routine Given 02/01/2019 9:42 AM EDT 40 mEq potassium chloride (K-DUR/KLOR-CON) extended release tablet 40 mEq 40 mEq, Oral, ONCE, 1 dose, On Thu02/03/19 at 1400, 20 mEq tablet may be dissolved in water for administration, Routine Given 02/03/2019 1:19 PM EDT 40 mEq potassium phosphate (monobasic) (K-PHOS) tablet 1,000 mg 1,000 mg, Oral, ONCE, 1 dose, On Thu01/31/19 at 1500, Dissolve tablets in 6-8 oz of water; for best results, soak tablets in water for 2-5 minutes, then stir and give to patient., Routine Given 01/31/2019 3:42 PM EDT 1,000 mg potassium phosphate (monobasic) (K-PHOS) tablet 1,000 [...] 7:37 PM EDT 5 mg sodium chloride 0.45% 1,000 mL with sodium bicarbonate 50 mEq infusion at 75 mL/hr, Intravenous, CONTINUOUS, Starting on Thu02/02/19 at 1115, Until Thu02/02/19 at 2114 New Bag 02/02/2019 12:37 PM EDT 75 mL/hr sodium chloride 0.9 % (flush) flush 5 mL 5 mL, Intravenous, 2 TIMES DAILY, First dose on Thu01/31/19 at 2100, Until Discontinued, Routine Given 02/05/2019 9:27 AM EDT 5 mLs Given 02/04/2019 10:02 PM EDT 5 mLs Given 02/04/2019 9:00 AM EDT 5 mLs sodium chloride 0.9% infusion 75 mL/hr, Intravenous, CONTINUOUS, Starting on Thu01/31/19 at 1331, Until Thu02/01/19 at 0401 Rate/Dose Change 02/01/2019 3:15 AM EDT 75 mL/hr 75 mL/hr New Bag 02/01/2019 12:00 AM EDT 120 mL/hr 120 mL/hr New Bag 01/31/2019 1:34 PM EDT 120 mL/hr 120 mL/hr tacrolimus (PROGRAF) capsule 1 mg 1 mg, [...] Given 02/03/2019 9:16 AM EDT 0.4 mg documented in this [...] 1748 (Given - Provider: Emmy Purdy RN) 0827 (Given - Provider: Emmy Purdy RN)215 (Given - Provider: Jovanna Abrams RN) 0929 (Given - Provider: Shannan Aguillon RN) ascorbic acid (Vitamin C) tablet 500 mg 500 mg, Oral, 3 TIMES DAILY, First dose on Thu01/31/19 at 2100, Until Discontinued, Routine 0918 (Given - Provider: Barron Epstein RN)1707 (Given - Provider: Emmy Purdy RN)2040 (Given - Provider: Betzaida Sparks RN) 0825 (Given - Provider: Emmy Purdy RN)1738 (Given - Provider: Emmy Purdy, JADEN)2158 (Given - Provider: Jovanna Abrams, JADEN) 0929 (Given - Provider: Shannan Aguillon, JADEN)1549 (Given - Provider: Shannan Aguillon, JADEN) aspirin chewable tablet 81 mg 81 mg, Oral, DAILY, First dose on Thu02/01/19 at 1045, Until Discontinued, Routine 0916 (Given - Provider: Barron Epstein RN) 0826 (Given - Provider: Emmy Purdy RN) 0930 (Given - Provider: Shannan Aguillon RN) atorvastatin (LIPITOR) tablet 40 mg 40 mg, Oral, EVERY EVENING, First dose on Thu02/01/19 at 1045, Until Discontinued, Routine 1707 (Given - Provider: Emmy Purdy RN) 1738 (Given - Provider: Emmy A Purdy, RN) calciTRIol (ROCALTROL) capsule 0.5 mcg 0.5 mcg, Oral, EVERY OTHER DAY, First dose on Thu01/31/19 at 1930, Until Discontinued, Routine 08 (Given - Provider: Emmy Purdy RN) clopidogrel (PLAVIX) tablet 75 mg 75 mg, Oral, DAILY, First dose on Thu02/01/19 at 0900, Until Discontinued, Routine 09 (Given - Provider: Barron Epstein RN) 08 (Given - Provider: Emmy Purdy, JADEN) 09 (Given - Provider: Shannan Aguillon, JADEN) furosemide (LASIX) injection 20 mg (COMPLETED) 20 mg, Intravenous, ONCE, 1 dose, On Thu02/04/19 at 1745 1738 (Given - Provider: Emmy Purdy, JADEN) glipiZIDE (GLUCOTROL XL) CR tablet 5 mg 5 mg, Oral, DAILY WITH BREAKFAST, First dose on Thu02/01/19 at 0800, Until Discontinued, DO NOT CRUSH OR OPEN Consider holding dose if patient is not eating. , Routine 922 (Given - Provider: Barron Eptsein RN) 08 (Given - Provider: Emmy Purdy, JADEN) 0936 (Given - Provider: Shannan Aguillon, RN) insulin lispro (HumaLOG) VIAL injection 1-4 [...] Purdy RN) 0703 (Given - Provider: Betzaida Sparks, RN - Comment: [phone])1212 (Given - Provider: Emmy Purdy RN)1739 (Given - Provider: Emmy Purdy RN) 0730 (Not Given - Provider: Shannan Aguillon RN - Reason: Order parameters not met)1210 (Given - Provider: Shannan Aguillon, RN) ipratropium-albuterol (DUONEB) 0.5 mg-3 mg(2.5 mg base)/3 mL nebulizer solution 3 mL (COMPLETED) 3 mL, Nebulization, ONCE, 1 dose, On Laura 02/03/19 at 0245, STAT 0245 (Given - Provider: Bryn Crowe RN) levothyroxine (SYNTHROID) tablet 137 mcg 137 mcg, Oral, DAILY, First dose on Thu02/01/19 at 0900, Until Discontinued, Routine 0949 (Given - Provider: Barron Epstein RN) 0826 (Given - Provider: Emmy Purdy RN) 0928 (Given - Provider: Shannan Aguillon, JADEN) metoprolol succinate (TOPROL-XL) XL tablet 25 mg 25 mg, Oral, DAILY, First dose on Thu02/05/19 at 1200, Until Discontinued, DO NOT CRUSH OR OPEN, Routine 1212 (Given - Provider: Shannan Aguillon, JADEN) metoprolol tartrate (LOPRESSOR) tablet 12.5 mg (CANCELED) 12.5 mg, Oral, EVERY 6 HOURS SCHEDULED, First dose on Thu01/31/19 at 1800, Until Discontinued, Hold for SBP <100, HR <55, Routine 0042 (Given - Provider: Bryn Crowe, JADEN)0600 (Given - Provider: Bryn Crowe, JADEN)1150 (Given - Provider: Barron Epstein RN)1708 (Given - Provider: Emmy Purdy RN)2319 (Given - Provider: Betzaida Sparks, RN) 0612 (Not Given - Provider: Betzaida Sparks, RN - Reason: Order parameters not met - Comment: HR <55)1212 (Given - Provider: Emmy Purdy RN)1749 (Given - Provider: Emmy Purdy RN)2337 (Given - Provider: Jovanna Abrams, RN) 0607 (Given - Provider: Jovanna Abrams, RN) mycophenolate (CELLCEPT) capsule 250 mg 250 mg, Oral, 2 TIMES DAILY, First dose on Thu01/31/19 at 2100, Until Discontinued, DO NOT CRUSH OR OPEN Administer to patient on empty stomach (1 hour before or two hours after a meal)., Routine 919 (Given - Provider: Barron Epstein RN)2039 (Given - Provider: Betzaida Sparks, RN) 08 (Given - Provider: Emmy Purdy, JADEN)2158 (Given - Provider: Jovanna Abrams, JADEN) 0936 (Given - Provider: Shannan Aguillon, RN) pantoprazole (PROTONIX) tablet 40 mg 40 mg, Oral, DAILY, First dose on Thu01/31/19 at 1641, Until Discontinued, DO NOT CRUSH OR OPEN 0916 (Given - Provider: Barron Epstein RN) 0825 (Given - Provider: Emmy Purdy, JADEN) 0928 (Given - Provider: Shannan Aguillon, JADEN) potassium chloride (K-DUR/KLOR-CON) extended release tablet 40 mEq (COMPLETED) 40 mEq, Oral, ONCE, 1 dose, On Thu02/03/19 at 1400, 20 mEq tablet may be [...] patient., Routine 919 (Given - Provider: Barron Epstein RN)2039 (Given - Provider: Betzaida Sparsk, RN) 08 (Given - Provider: Emmy Purdy, JADEN)215 (Given - Provider: Jovanna Abrams, JADEN) 0929 (Given - Provider: Shannan Aguillon RN) sodium chloride 0.9 % (flush) flush 5 mL 5 mL, Intravenous, 2 TIMES DAILY, First dose on Thu01/31/19 at 2100, Until Discontinued, Routine 0900 (Not Given - Provider: Barron Epstein RN - Reason: Contraindicated)2040 (Given - Provider: Betzaida Sparks, RN) 0900 (Given - Provider: Emmy Purdy, RN)2201 (Given - Provider: Jovanna Abrams, RN) 09 (Given - Provider: Shannan Aguillon RN) tacrolimus (PROGRAF) capsule 1 mg(Linked Group 2) 1 mg, Oral, NIGHTLY, First dose on Thu01/31/19 at 2100, Until Discontinued, Routine 2039 (Given - Provider: Betzaida Sparks, JADEN) 2200 (Given - Provider: Jovanna Abrams RN) tacrolimus (PROGRAF) capsule 2 mg(Linked Group 2) 2 mg, Oral, EVERY MORNING, First dose on Thu02/01/19 at 0700, Until Discontinued, Routine 0917 (Given - Provider: Barron Epstein RN) 0612 (Given - Provider: Betzaida Sparks RN) 0608 (Given - Provider: Jovanna Abrams, JADEN) tamsulosin (FLOMAX) ER capsule 0.4 mg 0.4 mg, Oral, DAILY, First dose on Thu01/31/19 at 1930, Until Discontinued, DO NOT CRUSH OR OPEN, Routine 0916 (Given - Provider: Barron Epstein RN) 0826 (Given - Provider: Emmy Purdy RN) 0927 (Given - Provider: Shannan Aguillon RN) Continuous Medication Order 02/03/2019 02/04/2019 02/05/2019 furosemide (LASIX) 100 mg in sodium chloride 0.9% 100 mL infusion (CANCELED) 10 mg/hr (10 mL/hr), Intravenous, CONTINUOUS, Starting on Laura 02/03/19 at 1630, Until Thu02/04/19 at 1250, Routine 1833 (New Bag - Provider: Emmy Purdy RN) 0612 (New Bag - Provider: Betzaida Sparks RN)1344 (Stopped - Provider: Emmy Purdy RN) heparin 25,000 units in dextrose 5% 500 mL infusion (CANCELED)(Linked Group 3) 0-5,000 Units/hr (0-100 mL/hr), Intravenous, CONTINUOUS, Starting on 01/31/19 at 1822, Until Laura 02/03/19 at 1809, [...] Buccal, EVERY 30 MIN PRN, Starting on 01/31/19 at 1843, Until [...] PROTOCOL, Starting on Thu01/31/19 at 1819, Until Thu02/03/19 at 1809, Per Protocol, START ADJUSTMENT SCHEDULE 6 HOURS AFTER STARTING INFUSION Heparin UFH Level between 0.1 - 0.29 IU/mL: Bolus 2,000 units Heparin UFH Level less than 0.1 IU/mL: Bolus 4,000 units, Routine And heparin 25,000 units in dextrose 5% 500 mL infusion (CANCELED)Jump to med 0-5,000 Units/hr (0-100 mL/hr), Intravenous, CONTINUOUS, Starting on Thu01/31/19 at 1822, Until Thu02/03/19 at 1809, BEGIN infusion at 1,000 units [...] Buccal, EVERY 30 MIN PRN, Starting on 01/31/19 at 1843, Until [...] Routine documented in this encounter Care Teams Stud Sheep Farmer Relationship Specialty Start Date End Date Urbano Denis DO [address] [place] [address] PCP - General 09/03/12 03/17/22 Ruchi Valles RN Nurse Clinic Transplant Surgery 07/30/15 documented as of this encounter
--- OUTSIDE RECORDS SUMMARY | 2024-02-14 11:23 | XMS_ITS | Encounter Summary ---
Author Organization [facility] [place] [address] Care Team Providers Care Medical Lab Scientist Name Role Phone Urbano Denis DO Primary Care Provider [phone] Reason for Visit * Reason Comments Medication Refill Encounter Details Date Type Department Care Team (Late st Contact Info) Description 01/17/2019 [place] [address] Guy Giraldo MD [facility] [place] [address] Social History Tobacco Use Types Packs/Day Years [...] AM EDT Hospital Encounter [place] [address] Arrived documented as of this encounter Goals Goal Patient Goal Type Associated Problems Recent Progress Patient-Stated? Author [facility] Medication Compliance and Understanding Patient Facing Action Plan On track( 017 10:41 AM EDT) No Blayne, Selena M, [facility] Note: Patient Goal: Clear hepatitis C Timeframe to meet goal: within 12 weeks of therapy documented as of this encounter Visit Diagnoses Not on filedocumented in this encounter Care Teams Medical Lab Scientist Relationship Specialty Start Date End Date Urbano Denis DO [address] [place] [address] PCP - General 09/03/12 03/17/22 Ruchi Valles RN Nurse Clinic Transplant Surgery 07/30/15 documented as of this encounter
--- OUTSIDE RECORDS SUMMARY | 2024-02-14 11:23 | XMS_ITS | Encounter Summary ---
[place] [address] Care Team Providers Care Loftsman/Woman Name Role Phone Urbano Denis DO Primary Care Provider [phone] Reason for Visit * Auth/Cert Specialty Diagnoses / Procedures Referred By Humberto flor Referred To Contact Diagnoses Paroxysmal atrial fibrillation Atrial fibrillation with RVR Referral ID Status Reason Start Date Expiration Date Visits Re quested Visits Authorized [id number] 1 1 Encounter Details Date Type Department Care Team (Latest Contact Info) Description 01/31/2019 9:25 AM EDT Laboratory Appointment Lab [address] [place] [address] Kidney replaced by transplant Social History Tobacco [...] AM EDT Hospital Encounter [place] [phone] Arrived documented as of this encounter Goals [...] Priority Date/Time Associated Diagnosis Comments HEMOGRAM STAT 01/31/2019 9:46 AM EDT Kidney replaced by transplant DIFFERENTIAL, AUTOMATED STAT 01/31/2019 9:46 AM EDT Kidney replaced by transplant TACROLIMUS LEVEL STAT 01/31/2019 9:46 AM EDT Kidney replaced by transplant CBC (WITH DIFF) STAT 01/31/2019 9:46 AM EDT Kidney replaced by transplant URIC ACID STAT 01/31/2019 9:46 AM EDT Kidney replaced by transplant PHOSPHORUS STAT 01/31/2019 9:46 AM EDT Kidney replaced by transplant MAGNESIUM STAT 01/31/2019 9:46 AM EDT Kidney replaced by transplant CHOLESTEROL, TOTAL STAT 01/31/2019 9: 46 AM EDT Kidney replaced by transplant COMPREHENSIVE METABOLIC PANEL STAT 01/31/2019 9:46 AM EDT Kidney replaced by transplant documented in this encounter Results * (ABNORMAL) Differential, Automated (01/31/2019 9:46 AM EDT) Neutrophil % 76.5 % [facility] Neutrophil Absolute 8.42(H) 1.70 - 6.10 x10(3)/mc L [facility] Lymph % 14.9 % [facility] Lymphocytes Abs 1.6 0.9 - 3.2 x10(3)/mc L [facility] Monocyte % 7.1 % [facility] Monocyte Abs 0.8 0.3 - 0.9 x10(3)/mc L [facility] Eos % 0.7 % [facility] Eosinophils Abs 0.1 0.0 - 0.4 x10(3)/[facility] Basophil % 0.5 % [facility] Baso Absolute 0.1 0.0 - 0.1 x10(3)/[facility] Immature Gran % 0.30 % [facility] Comment: Immature granulocytes(IG's)percentage and absolute count will include metamyelocytes, myelocytes, and promyelocytes. Blood smears from CBCs yielding IG's will be scanned manually for concordance. If this scan disagrees with the automated IG or if promyelocytes are noted, a manual differential will be performed. Immature Gran Absolute 0.03 0.00 - 0.04 x10(3)/[facility] Blood specimen (specimen) 01/31/2019 9:46 AM EDT 01/31/2019 9:53 AM EDT Narrative Resulting Agency Comment Spec In Lab Tal Eagle MD HEMATOLOGY ORDERA BLES [facility] [place] [address] * (ABNORMAL) Hemogram (01/31/2019 9:46 AM EDT) White Blood Cell 11.0(H) 4.0 - 9.5 x10(3)/[facility] Red Blood Cell 5.39 4.58 - 5.54 x10(6)/[facility] Hemoglobin 17.0(H) 13.7 - 16.5 gm/dL [facility] Hematocrit 49.5(H) 40.5 - 48.5 % [facility] Mean Cell Volume 91.8 82.9 - 93.1 fL [facility] Mean Cell Hemoglobin 31.5 27.5 - 32.1 pg [facility] Mean Cell Hemoglobin Concentration 34.3 32.0 - 35.7 gm/dL [facility] Platelet 270 145 - 357 x10(3)/mc L [facility] RDW Standard Deviation 45.4(H) 36.0 - 45.0 fL [facility] RDW coefficient of variation 13.8 11.4 - 13.8 % [facility] Mean Platelet Volume 10.0 7.6 - 12.9 fL [facility] NRBC% auto 0.0 % [facility] NRBC Absolute 0.000 0.000 - 0.000 x10(3)/mc L [facility] Blood specimen (specimen) 01/31/2019 9:46 AM EDT 01/31/2019 9:53 AM EDT Narrative Resulting Agency Comment Spec In Lab Tal Eagle MD HEMATOLOGY ORDERA BLES [facility] [place] [address] * Cholesterol, total (01/31/2019 9:46 AM EDT) Cholesterol, Total 113 mg/dL [facility] Comment: Lower Risk: <200 mg/dL Average Risk: 200-239 mg/dL Higher Risk: >gu=765 mg/dL Lipid Interpretation See Note [facility] Comment: Lipid management should be guided by a patient? s ASCVD risk, goals and preferences. ACC/AHA Guidelines recommend high intensity statin if clinical ASCVD or LDL greater than or equal to 190 mg/dL. http://adSageurl.com/SSM-BRK-Rihooccnq Adults aged 40-75 with LDL 70-189 mg/dL should have their 10 year ASCVD risk estimated with the ACC/AHA ASCVD risk green chain puller http://tools.acc.org/SAGJJ-Ptdg-Xfcefbkqh/ Statin should be discussed if risk greater [...] MD CHEMISTRY ORDERAB LES Performing Organization Address [facility] Co de Phone Number [facility] [place] [address] * Magnesium (01/31/2019 9:46 AM EDT) Magnesium 0.76 0.69 - 1.07 mmol/L [facility] Blood specimen (specimen) 01/31/2019 9:46 AM EDT 01/31/2019 9:53 AM EDT Narrative Resulting Agency Comment Spec In Lab Tal Eagle MD CHEMISTRY ORDERAB LES Performing Organization Address [facility] Co de Phone Number [facility] [place] [address] * Phosphorus (01/31/2019 9:46 AM EDT) Phosphorus 3.7 2.5 - 4.5 mg/dL [facility] Blood specimen (specimen) 01/31/2019 9:46 AM EDT 01/31/2019 9:53 AM EDT Narrative Resulting Agency Comment Spec In Lab Tal Eagle MD CHEMISTRY ORDERAB LES Performing Organization Address [facility] Co de Phone Number [facility] [place] [address] * (ABNORMAL) Uric acid (01/31/2019 9:46 AM EDT) Uric Acid 11.1(H) 3.5 - 8.5 mg/dL [facility] Blood specimen (specimen) 01/31/2019 9:46 AM EDT 01/31/2019 9:53 AM EDT Narrative Resulting Agency Comment Spec In Lab Tal Eagle MD CHEMISTRY ORDERAB LES [facility] [place] [address] * (ABNORMAL) Comprehensive metabolic panel (non-fasting) (01/31/2019 9:46 AM EDT) Glucose 175 65 - 199 mg/dL [facility] Comment:Diabetes: >=200 mg/d L plus symptoms Blood Urea Nitrogen 30(H) 10 - 20 mg/dL [facility] Creatinine 1.99(H) 0.80 - 1.50 mg/dL [facility] Sodium 136 135 - 145 mmol/L [facility] Potassium 4.5 3.5 - 5.0 mmol/L [facility] Comment: Please note: ??Patients with WBC >100,000 may have falsely elevated Potassium levels. ??For accurate Potassium quantification in these patients send serum separator tube (gold top) for subsequent determinations. ??Contact the Clinical Chemistry Laboratory if there are any questions. Chloride 96(L) 98 - 107 mmol/L [facility] Carbon Dioxide 26 22 - 31 mmol/L [facility] Anion Gap 14 5 - 15 mmol/L [facility] Calcium 10.3 8.5 - 10.5 mg/dL [facility] Protein, Total 7.3 6.1 - 8.0 gm/dL [facility] Albumin 4.3 3.2 - 5.2 gm/dL [facility] Aspartate Aminotransferase 19 0 - 39 unit/L [facility] Alanine Aminotransferase 22 0 - 55 unit/L [facility] Alkaline Phosphatase 68 40 - 130 unit/L [facility] Bilirubin, Total 2.8(H) 0.2 - 1.3 mg/dL [facility] Est Glomerular Filtration Rate 33(L) >=60 mL/min/1. 73 m?? [facility] Comment: The eGFR was calculated using the CKD-EPI equation. As with all creatinine based estimates of kidney function, eGFR values calculated with the CKD-EPI equation are not accurate in patients with acute kidney failure, extremes of body mass or the acutely ill. http://Riskified/[facility] eGFR 38(L) >=60 mL/min/1. 73 m?? [facility] Comment: The eGFR was calculated using the CKD-EPI equation. As with all creatinine based estimates of kidney function, eGFR values calculated with the CKD-EPI equation are not accurate in patients with acute kidney failure, extremes of body mass or the acutely ill. http://Riskified/[facility] Blood specimen (specimen) 01/31/2019 9:46 AM EDT 01/31/2019 9:53 AM EDT Narrative Resulting Agency Comment Spec In Lab Tal Eagle MD CHEMISTRY ORDERAB LES Performing Organization Address [facility] Co de Phone Number [facility] [place] [address] * Tacrolimus level (01/31/2019 9:46 AM EDT) Tacrolimus 6.7 ng/mL [facility] Comment: Trough therapeutic: ??5-15 ng/mL Performed by ultra-performance liquid chromatography tandem mass spectrometry (UPLCMS/MS). This test was developed and its performance characteristics determined by [facility]. It has not been cleared or approved [...] MD CHEMISTRY ORDERAB LES Performing Organization Address [facility]/ZIP Co de Phone Number [facility] [place] [address] documented in this encounter Visit Diagnoses Diagnosis Kidney replaced by transplant documented in this encounter Care Teams Loftsman/Woman Relationship Specialty Start Date End Date Urbano Denis DO [address] [place] [address] [address] [facility] [address] [place] [address] PCP - General 09/03/12 03/17/22 Ruchi Valles RN Nurse Clinic Transplant Surgery 07/30/15 documented as of this encounter
--- OUTSIDE RECORDS SUMMARY | 2024-02-14 11:24 | XMS_ITS | Encounter Summary ---
Author Organization [facility] Address [facility] [place] [address] Care Team Providers Care Computer Peripheral Equipment Operator Name Role Phone AdeelUrbano boland Primary Care Provider [phone] Reason for Visit * Reason Comments Medication Refill Encounter Details Date Type Department Care Team (Late st Contact Info) Description 11/15/2018 Refill [place] [address] Tal Eagle MD [facility] [place] [address] Social History Tobacco Use Types Packs/Day Years [...] Telephone Encounter - Tim Miles LPN - 11/16/2018 4:51 PM EDT Received Rx Refill Request from pt pharmacy Pharmacy, 3rd Floor, [place], [place] for: Requested Prescriptions Pending Prescriptions Disp Refills ??? PROGRAF 1 mg Capsule [Pharmacy Med Name: PROGRAF 1MG CAPS] 90 capsule 8 Sig: TAKE TWO CAPSULES BY MOUTH EVERY MORNING, TAKE ONE CAPSULE BY MOUTH NIGHTLY . ??? potassium phosphate, monobasic, (K-PHOS ORIGINAL) 500 mg Tablet, Soluble 540 tablet 3 Sig: Take 2 tablets by mouth 2 times daily. DISSOLVE IN WATER PRIOR TO ADMINISTRATION ??? mycophenolate (CELLCEPT) 250 mg Capsule [Pharmacy Med Name: MYCOPHENOLATE MOFETIL 250MG CAPS] 60 capsule 8 Sig: TAKE ONE CAPSULE BY MOUTH TWICE A DAY ??? Magnesium Gluconate 27 mg magnesium (500 mg) Tablet [Pharmacy Med Name: MAGNESIUM GLUCONATE 500MG TABS] 360 tablet 3 Sig: TAKE TWO TABLETS BY MOUTH TWICE A DAY documented in this encounter Plan of Treatment Upcoming Encounters Date Type Department Care Team (Late st Contact Info) Description 04/15/2024 10:00 AM EDT Hospital Encounter Non-[place] [address] Arrived documented as of this encounter Goals [...] filedocumented in this encounter Care Teams Computer Peripheral Equipment Operator Relationship Specialty Start Date End Date Urbano Denis DO [address] [place] [address] [facility] [address] [place] [address] PCP - General 09/03/12 03/17/22 Ruchi Valles RN Nurse Clinic Transplant Surgery 07/30/15 documented as of this encounter
--- OUTSIDE RECORDS SUMMARY | 2024-02-14 11:24 | XMS_ITS | Encounter Summary ---
Author Organization [facility] [place] [address] Care Team Providers Care Visually Impaired Teacher Name Role Phone AdeelUrbano toscano Primary Care Provider Encounter Details Date Type Department Care Team (Late st Contact Info) Description 10/07/2018 Notes Only [place] [address] Jeremiah Betancur, RN Social History Tobacco Use Types Packs/Day [...] of this encounter Progress Notes * Jeremiah Betancur, RN - 10/07/2018 3:29 PM EDT Functional status: 100% no limitations Verified with Dr Eagle documented in this encounter Plan of Treatment Upcoming Encounters Date Type Department Care Team (Late st Contact Info) Description 04/15/2024 10:00 AM EDT Hospital Encounter Non-[place] [address] Arrived documented as of this encounter Goals [...] on filedocumented in this encounter Care Teams Visually Impaired Teacher Relationship Specialty Start Date End Date Urbano Denis DO [address] [place] [address] [address] [facility] [address] [place] [address] PCP - General 09/03/12 03/17/22 Ruchi Valles RN Nurse Clinic Transplant Surgery 07/30/15 documented as of this encounter
--- OUTSIDE RECORDS SUMMARY | 2024-02-14 11:24 | XMS_ITS | Encounter Summary ---
Author Organization [facility] [place] [address] Care Team Providers Care Secondary School Principal Name Role Phone Adeel Urbano KIRBY Primary Care Provider Encounter Details Date Type Department Care Team (Late st Contact Info) Description 09/24/2018 Orders Only [place] [id number] Tal Eagle MD [facility] [place] [address] BK viremia Social History Tobacco Use Types [...] AM EDT Hospital Encounter Non-[place] [phone] Arrived documented as of this encounter Goals Goal Patient Goal Type Associated Problems Recent Progress Patient-Stated? Author [facility] Medication Compliance and Understanding Patient Facing Action Plan On track( 017 10:41 AM EDT) No Selena Cisneros M, [facility] Note: Patient Goal: Clear hepatitis C Timeframe to meet goal: within 12 weeks of therapy documented as of this encounter Results * BKV Quant Urine (09/12/2019 10:23 AM EDT) BKV Urine Result Not Detected [facility] BKV Urine Interp BK Virus Urine Result Interpretation Result: BK Virus not detected Specimen type: urine Assay Range: 2.80-7.80 log copies/mL (6.28x10^2 - 6.28x10^7 copies/mL) Methods: Quantitative real-time polymerase chain reaction (PCR) of viral DNA isolated from plasma was performed using [employer] BKV analyte-specific reagents and the [employer] System that automates both nucleic acid isolation [...] Gen[employer] and [employer] Technology (CGAT) Laboratory at [facility]. It has not been cleared or approved by the FDA. The laboratory is regulated under CLIA as qualified to perform high-complexity testing. This test is used for clinical purposes. It should not be regarded as investigational or for research. [facility] Comment: [VERIFIED DATE]09.17.19 Verified By:Tal Cleaning (Electronic Signature) Urine specimen (specimen) 09/12/2019 10:23 AM EDT 09/12/2019 11:59 AM EDT Narrative Resulting Agency Comment Spec In Lab Tal Eagle MD MOLECULAR ORDERAB LES [facility] [place] [address] * Miscellaneous Lab request (09/12/2019 10:10 AM EDT) Label Request received in lab. [facility] Blood specimen (specimen) 09/12/2019 10:10 AM EDT 09/12/2019 10:23 AM EDT Narrative Resulting Agency Comment Spec In Lab Tal Eagle MD LAB SEND OUT ROCHELLE JENNINGS [facility] [place] [address] documented in this encounter Visit Diagnoses Diagnosis BK viremia Viremia, unspecified documented in this encounter Care Teams Secondary School Principal Relationship Specialty Start Date End Date Urbano Denis DO [address] [facility] [address] [place] [address] PCP - General 09/03/12 03/17/22 Ruchi Valles RN Nurse Clinic Transplant Surgery 07/30/15 documented as of this encounter
--- OUTSIDE RECORDS SUMMARY | 2024-02-14 11:24 | XMS_ITS | Encounter Summary ---
[place] [address] Care Team Providers Care Skiing Instructor Name Role Phone AdeelUrbano toscano Primary Care Provider Reason for Visit * Reason Onset Date Comments Medication Refill 06/28/2018 Encounter Details Date Type Department Care Team (Late st Contact Info) Description 06/28/2018 Refill [place] [id number] Marisela Metcalf RN Social History Tobacco Use [...] AM EDT Hospital Encounter Non-Invasive [place] [phone] Arrived documented as of this encounter Goals [...] on filedocumented in this encounter Care Teams Skiing Instructor Relationship Specialty Start Date End Date Urbano Denis DO [address] [place] [address] PCP - General 09/03/12 03/17/22 Ruchi Valles RN Nurse Clinic Transplant Surgery 07/30/15 documented as of this encounter
--- OUTSIDE RECORDS SUMMARY | 2024-02-14 11:24 | XMS_ITS | Encounter Summary ---
Author Organization [facility] [place] [address] Care Team Providers Care Chick Sexer Name Role Phone Adeel Urbano KIRBY Primary Care Provider Reason for Visit * Reason Comments Medication Refill Encounter Details Date Type Department Care Team (Late st Contact Info) Description 07/14/2018 Refill [place] [address] Tal Eagle MD [facility] [place] [address] Social History Tobacco Use Types Packs/Day Years [...] AM EDT Hospital Encounter Non[place] [address] Arrived documented as of this encounter Goals Goal Patient Goal Type Associated Problems Recent Progress Patient-Stated? Author [facility] Medication Compliance and Understanding Patient Facing Action Plan On track( 017 10:41 AM EDT) Selena Scott, [facility] Note: Patient Goal: Clear hepatitis C Timeframe to meet goal: within 12 weeks of therapy documented as of this encounter Visit Diagnoses Not on filedocumented in this encounter Care Teams Chick Sexer Relationship Specialty Start Date End Date Urbano Denis DO [address] [place] [address] PCP - General 09/03/12 03/17/22 Ruchi Valles RN Nurse Clinic Transplant Surgery 07/30/15 documented as of this encounter
--- OUTSIDE RECORDS SUMMARY | 2024-02-14 11:24 | XMS_ITS | Encounter Summary ---
[place] [address] Care Team Providers Care Manager Hospice Name Role Phone AdeelUrbano Primary Care Provider Reason for Visit * Auth/Cert Specialty Diagnoses / Procedures Referred By Humberto flor Referred To Contact Diagnoses Hydronephrosis Referral ID Status Reason Start Date Expiration Date Visits Re quested Visits Authorized [id number] 1 1 Encounter Details Date Type Department Care Team (Late st Contact Info) Description 06/17/2018 3:28 PM EST Anesthesia Event [place] [id number] Jesus Tavares MD [facility] [place] [address] Keenan Washburn MD [facility] [place] [address] Anesthesia Record Procedure Summary Procedure Name Responsible Anesthesiologist Anesthesia Start Time Anesthesia Stop Time CYSTO, RETROGRADE, URETEROPYELOGRAPHY (WRVU 2.37) (Left: Ureter) Jesus Tavares MD 06/17/18 1528 06/17/18 1559 Events Date Time Event Comment 06/17/2018 1423 1528 AN Verify 1528 Start 1529 An Start Data 1529 An Induction 1530 An Intubation 1531 Anesthesia Ready 1538 Procedure Start 1542 Procedure Stop 1550 Extubation/LMA Out 1550 an stop data 1559 Recovery or ICU Handoff Alanna ent care was transferred to the destination unit staff after review of the patient's medical history, current anesthetic/surgical status and plan, according to the Provider Handoff Checklist. 1559 Stop Meds Name Total Midazolam 2 mg IV Lidocaine 40 mg Propofol 150 mg Ondansetron 4 mg Lactated Ringers 200 mL * Agents Name O2 Air N2O Sevoflurane (et) * Blood No blood administrations on file. Lines, Drains, and Airways Type Details Placement Removal Incision 09/16/15; abdomen; other (see comments) (draini); (wound drain to small bulb); 06/17/18; 1547 09/16/15 0000 by Shira Kemp RN 06/17/18 1547 by Karly Parra RN Incision 09/16/15; abdomen; 06/17/18; 1547 09/16/15 0000 by Shira Kemp RN 06/17/18 1547 by Karly Parra RN Incision 03/25/16; abdomen; 06/17/18; 1547 03/25/16 0000 by Kandace Eduardo RN 06/17/18 1547 by Karly Parra RN Incision 05/20/16; abdomen; 06/17/18; 1547 05/20/16 0000 by Nuris Andersen RN 06/17/18 1547 by Karly Parra RN Incision 11/25/17; 1105; knee ; 06/17/18; 1547 11/25/17 1105 by Sangeeta Maloney RN 06/17/18 1547 by Karly Parra, RN (RETIRED) Peripheral IV Line - Single Lumen 06/16/18; 1605; median cubital vein (antecubital fossa), right; [id number] catheter system; 20 gauge; MLS; 0; 06/18/18; 1400 06/16/18 1605 by Halima Contreras RN 06/18/18 1400 by Nikolas Flores RN Supraglottic Mask Ventilation: No t Attempted (0); LMA Type: iGel; LMA Size: 4; Inserted by: Sarah; Removal Date: 06/17/18; Removal Time: 1550 06/17/18 1534 by Sonu Smith CRNA 06/17/18 1550 by Sonu Smith CRNA Incision 06/17/18; 1537; urethral meatus; scope inserted through natural orifice for cystoscopy. ; 01/30/22; 1823 06/17/18 1537 by Meli Mukherjee RN 01/30/22 1823 by Sonia Yu RN documented in this encounter Social History [...] OR Notes * Anesthesia Postprocedure Evaluation - Jesus Tavares MD - 06/17/2018 4:16 PM EST [facility] Department of Anesthesiology Post-procedure Note Patient: Cody Bolden Procedure Summary Date: 06/17/18 Room / Location: [address] MAIN OR Anesthesia Start: 1527 Anesthesia Stop: 1558 Procedure: CYSTO, RETROGRADE, URETEROPYELOGRAPHY (WRVU 2.37) (Left Ureter) Diagnosis: (Hydronephrosis) Surgeon: Edinson Grider III, MD Responsible Provider: Jesus Tavares MD Anesthesia Type: general ASA Status: 3 All Anesthesia Providers: Anesthesiologist: Jesus Tavares MD CHARGE AUTHORIZER: Sonu Smith CRNA Most Recent Vitals: 06/17/18 1600 BP: 105/50 Pulse: (!) 47 Resp: 17 Temp: SpO2: 95% Pain Patient Location: PACU[facility] Level of Consciousness: Awake and Alert Pain Management: Satisfactory Analgesia PONV: None Cardiovascular Status: At Baseline Respiratory Status: At Baseline Postoperative Fluid Status: Intravascular EUvolemia Possible Anesthetic Complications: NONE apparent at time of evaluation Final Primary Anesthesia Type: General (The anesthetic type performed was the same as planned.) Comments: * Anesthesia Preprocedure Evaluation - Jesus Tavares MD - 06/17/2018 11:01 AM EST Images from the original note were not included. Pre-Anesthesia Evaluation for: Cody Bolden a 67 y.o. male. Procedure(s): CYSTO, STENT PLACEMENT (WRVU 2.82) Patient Active Problem List Diagnosis ??? Hydronephrosis ??? S/P R TKA 11/25/17 Dr. Dale ??? Obesity (BMI 30.0-34.9) ??? Debility ??? Pain of right lower extremity ??? Vitamin D deficiency ??? 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 retirement current use of 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 drug ??? CAH [...] EXTREMITY performed by [facility] ??? PRO REIMPLANT URETER, SINGLE URETER Left 05/20/2016 @URETERONEOCYSTOSTOMY ANASTOMOSIS OF SINGLE URETER TO BLADDER performed by Santosh Arredondo MD at [facility] OR ??? PRO REIMPLANT URETER, SINGLE URETER N/A 05/20/2016 @URETERONEOCYSTOSTOMY ANASTOMOSIS OF SINGLE URETER TO BLADDER performed by Que Amaro MD at [facility] OR ??? PRO TOTAL KNEE ARTHROPLASTY Right 11/25/2017 TOTAL KNEE ARTHROPLASTY (WRVU 20.72) performed by Breezy Dale MD at [facility] ??? PRO TRANSPLANT, PREP CADAVER RENAL GRAFT N/A 09/16/2015 @PREPARATION CADAVERIC RENAL ALLOGRAFT performed by Franko Larkin MD at [facility] OR ??? PRO TRANSPLANTATION OF KIDNEY N/A 09/16/2015 @KIDNEY TRANSPLANT, WITHOUT RECIPIENT NEPHRECTOMY performed by Franko Larkin MD at [facility] OR Social History Tobacco Use ??? Smoking status: [...] home medications have been reviewed. Physical Exam: Most Recent Vitals: 06/17/18 0859 BP: 155/74 Pulse: Resp: 17 Temp: 36.6 ??C (97.9 ??F) SpO2: 93% Body mass index is 31.28 kg/m??. Height: 177.8 cm (5' 10) Weight: 98.9 kg (218 lb) Airway Assessment: Mallampati: II TM distance: >3 FB Neck ROM: full Cardiovascular Assessment: Rhythm: regular Rate: normal cardiovascular exam normal Pulmonary Assessment: breath sounds clear to auscultation pulmonary exam normal Dental Assessment: Misc Assessment: Patient is wearing No contact(s). IV access: Peripheral line Anesthesia Plan: ASA 3 general, with a(n) intravenous induction 67 y.o. male with L renal transplant presenting for cystoscopy and stenting of L ureteral stricturew/ hydronephrosis. PMH significant for treated HepC following infected transplant, HTN, T2DM non- insulin dependent, hypothyroidism, prior minor CVA on plavix (has not had dose in 10 days). Cigar smoker Anesthetic hx: No reported prior complications with anesthesia, tolerated GA multiple times in the past, no family history of issues with anesthesia Airway hx: prior MAC 3 intubation, grade 1 view following 2 attempts. Size 7 tube. Masked with adjuvant Exercise tolerance: 4+ METs EK11/04/2017 shows sinus rhythm with premature atrial complexes and left anterior fascicular block ECHO: 06/14/2015 pharmacologic echo stress shows LVEF 60% without structural or valvular abnormalities, target HR reached Lab Results Component Value Date HGB 15.9 06/17/2018 PLATELET 274 06/17/2018 INR 1.1 11/04/2017 NA 139 06/17/2018 K 3.5 06/17/2018 CREATININE 1.20 06/17/2018 No results for input(s): ABORH in the last 7068 hours. Allergies: No Known Allergies NPO Status: Appropriate Anesthetic Plan: GA with LMA PIV x2, currently with single R 20 gauge PIV Region - Other Informed Consent: Anesthetic plan and risks discussed with patient. Use of blood products discussed with patient who consented to blood products. PAT Staff Note documented in this encounter Plan of Treatment Upcoming Encounters Date Type Department Care Team (Late st Contact Info) Description 04/15/2024 10:00 AM EDT Hospital Encounter Non-Invasive [place] [address] Arrived documented as of this [...] Action Action Date Dose Rate Site lactated Ringers infusion CONTINUOUS PRN, Starting on Laura 12/13/18 at 1528, Until Laura 06/17/18 at 1559, Anesthesia Intra-op New Bag 06/17/2018 3:28 PM EST lidocaine (PF) (XYLOCAINE) 100 mg/5 mL (2 %) injection PRN, Starting on Laura 06/17/18 at 1529, Until Laura 06/17/18 at 1559, Anesthesia Intra-op, Routine Given 06/17/2018 3:29 PM EST 40 mg midazolam (PF) (VERSED) multi-dose injection PRN, Starting on Laura 06/17/18 at 1529, Until Laura 06/17/18 at 1559, Anesthesia Intra-op, Routine Given 06/17/2018 3:29 PM EST 2 mg ondansetron (ZOFRAN) injection PRN, Starting on Laura 06/17/18 at 1538, Until Laura 06/17/18 at 1559, Anesthesia Intra-op, Routine Given 06/17/2018 3:38 PM EST 4 mg propofol (DIPRIVAN) 10 mg/mL bolus injection (Anesthesia) PRN, Starting on Laura 06/17/18 at 1529, Until Laura 06/17/18 at 1559, Anesthesia Intra-op Given 06/17/2018 3:29 PM EST 150 mg documented in this encounter Care Teams Manager Hospice Relationship Specialty Start Date End Date Urbano Denis DO [address] [place] [address] PCP - General 09/03/12 03/17/22 Ruchi Valles RN [facility] Transplant Surgery 07/30/15 documented as of this encounter
--- OUTSIDE RECORDS SUMMARY | 2024-02-14 11:24 | XMS_ITS | Encounter Summary ---
Author Organization [facility] [place] [address] Care Team Providers Care Mini Lab Operator Name Role Phone Adeel Urbano KIRBY Primary Care Provider [phone] Encounter Details Date Type Department Care Team (Late st Contact Info) Description 12/22/2018 Notes [place] [phone] Yris Johnson RPH Social History Tobacco Use Types Packs/Day Years [...] as of this encounter Progress Notes * Yris Johnson RPH - 12/22/2018 5:01 PM EDT Spoke to patient's caregiver ( Mara) regarding change from Prograf to Tacrolimus documented in this encounter Plan of Treatment Upcoming Encounters Date Type Department Care Team (Late st Contact Info) Description 04/15/2024 10:00 AM EDT Hospital Encounter [place] [phone] Arrived documented as of this [...] on filedocumented in this encounter Care Teams Mini Lab Operator Relationship Specialty Start Date End Date Urbano Denis DO [address] [place] [address] PCP - General 09/03/12 03/17/22 Ruchi Valles RN Nurse Clinic Transplant Surgery 07/30/15 documented as of this encounter
--- OUTSIDE RECORDS SUMMARY | 2024-02-14 11:24 | XMS_ITS | Encounter Summary ---
Author Organization [facility] [place] [address] Care Team Providers Care Resident Care Aid Name Role Phone Adeel Urbano KIRBY Primary Care Provider Encounter Details Date Type Department Care Team (Late st Contact Info) Description 2018 Abstract Solid [place] [address] Tim Miles BODY RECALL INSTRUCTOR Social History Tobacco Use Types Packs/Day Years [...] AM EDT Hospital Encounter Non-[place] [phone] Arrived documented as of this encounter Goals Goal Patient Goal Type Associated Problems Recent Progress Patient-Stated? Author [facility] Medication Compliance and Understanding Patient Facing Action Plan On track( 017 10:41 AM EDT) No Selena Cisneros, [facility] Note: Patient Goal: Clear hepatitis C Timeframe to meet goal: within 12 weeks of therapy documented as of this encounter Visit Diagnoses Not on filedocumented in this encounter Care Teams Resident Care Aid Relationship Specialty Start Date End Date Urbano Denis DO [address] [place] [address] [address] [facility] [address] [place] [address] PCP - General 09/03/12 03/17/22 Ruchi Valles RN Nurse Clinic Transplant Surgery 07/30/15 documented as of this encounter
--- OUTSIDE RECORDS SUMMARY | 2024-02-14 11:24 | XMS_ITS | Encounter Summary ---
Author Organization [facility] [address] Care Team Providers Care Copy Chief Name Role Phone Urbano Denis DO Primary Care Provider Reason for Visit * Reason Comments Abdominal Pain * Auth/Cert Specialty Diagnoses / Procedures Referred By Humberto flor Referred To Contact Diagnoses Hydronephrosis Referral ID Status Reason Start Date Expiration Date Visits Re quested Visits Authorized [id number] 1 1 Encounter Details Date Type Department Care Team (Latest Contact Info) Description 06/17/2018 3:16 PM EST - 06/17/2018 4:35 PM EST Surgery [place] [address] Edinson Grider III, MD [facility] [address] CYSTO, RETROGRADE, URETEROPYELOGRAPHY (WRVU 2.37) Social History Tobacco Use Types Packs/Day Years [...] Sign Reading Time Taken Comments Blood Pressure 136/62 06/17/2018 4:30 PM EST Pulse 45 06/17/2018 4:30 PM EST Temperature 36.6 ??C (97.9 ??F) 06/17/2018 3:56 PM ES T Respiratory Rate 16 06/17/2018 4:30 PM EST Oxygen Saturation 100% 06/17/2018 4:30 PM EST Inhaled Oxygen Concentration - - Weight 98.9 kg (218 lb) 06/16/2018 10:08 PM EST Height 177.8 cm (5' 10) 06/16/2018 10:08 PM EST Body Mass Index 31.28 06/16/2018 10:08 PM EST documented in this encounter Discharge Summaries * Jennifer Palmer - 06/18/2018 12:37 PM EST General Surgery Inpatient - Discharge Summary Patient Name: Ethel Akins Patient Age: 67 y.o. Birthdate: 1950 Admit date: 06/16/2018 Discharge date: 06/18/2018 Admitting Physician: Jennifer Amaro MD Primary Diagnosis: Hydronephrosis Secondary Diagnosis: Active Hospital Problems Diagnosis ??? Hydronephrosis Resolved Hospital Problems No resolved problems to display. Active Non-Hospital Problems Diagnosis ??? S/P R TKA 11/25/17 Dr. Dale ??? Obesity (BMI 30.0-34.9) ??? Debility ??? Pain of right lower extremity ??? Vitamin D deficiency ??? 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 prison current use of 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 drug ??? CAH [...] DJD (degenerative joint disease) ??? Hematuria HPI: Mr. Akins is a 67-yo male who I know very well following his donor kidney transplant operation in 2016. He has a history of treated hepatitis C and has no detectable viral load. He did not have a history of cirrhosis. The patient developed acute onset RLQ pain without fevers or rigors on Thursday and presented to [facility] where he was worked up in their emergency department and received a RUQ US that did not demonstrate evidence of acute cholecystitis or a dilated biliary system. He was discharged home the same day and continued to experience low level gnawing pain in the RLQ that was in a 4-5 range. He had one episode of nausea and emesis on Thursday prior to the [facility] visit.This spontaneously resolved and he has not experienced any further nausea or emesis symptoms. He has been tolerating solid foods and liquids without issues. He is having normal bowel movements and has not experienced abdominal distension throughout the week in association with his pain symptoms. Hedenies cloudy urine and dysuria symptoms. He has not had hematuria. There has been no change in his typical urine volume over the last week. The patient did not notify the Transplant team about theseissues over the course of the week and the patient re-presented to our emergency department for evaluation. The ED team performed RUQ US imaging that demonstrated an uninflamed gallbladder with negative sonographic Rosales's sign and no evidence of biliary ductal dilation. The ED team also performeda CT scan of the abdomen/pelvis that demonstrated no evidence of inflammation in the RLQ. The appendix is well-visualized and there is no evidence of appendiceal wall thickening or periappendiceal inflammation. There are no periappendiceal abscesses or any other collections in the RLQ. I see no evidence of colitis or terminal ileitis. There is no evidence of abdominal wall hernias. I see no evidence of recurrent R inguinal hernia. There is a large amount of stool in the colon. The only notable finding is that the patient has a 6 x 10 mm calculus in the ureter of the LEFT [place] kidney with evidence of proximal hydroureter and hydronephrosis. There is no gas in the collecting system proximalto this obstruction. Review of Dr. Arredondo's 05/2016 operative report indicates that the left nativeureter was ligated at that procedure which explains this finding. The LLQ transplant kidney shows no evidence of inflammation and there is no evidence of transplant allograft hydronephrosis. The ED team contacted us for consultation based upon these findings. ?? On presentation, he was afebrile and hemodynamically stable. His kidney transplant function is intact at his baseline level with a serum creatinine level of 1.2. WBC ct is normal. Amylase and lipase levels were in the normal range. Total bilirubin level was slightly elevated on presentation at 2.0 and trended up slightly overnight to 2.8. He has no evidence of jaundice. He was resting comfortablyin the ED bed and during our evaluation in the ED walked around the ED hallways. He was very comfortable during the ambulation and showed no sign of significant pain. On my examination, he has a benign, non-distended abdomen. I cannot elicit pain on superificial or deep palpation in any of the fourquadrants. Negative Rosales's sign. He denies pain when I shake his abdominal wall. There is no evidence of peritonitis on my exam. There is no evidence of incisional hernia at the midline or LLQ wounds. He does not have left flank / CVA tenderness on my examination. ?? On serial examinations by our house staff team throughout the night there has been no change in hisabdominal exam. On my serial examination this morning, there is no change in his abdominal exam. Hehas no evidence of peritonitis and I cannot elicit pain on deep palpation of any of the four quadrants of his abdominal wall. Repeat CBC continues to show a normal WBC ct. He had no fevers overnight.He has not experienced nausea or vomiting overnight. He continues to express the desire for food and remains hungry today. UA that was sent overnight did not demonstrate hematuria or pyuria. Operations/Major Procedures: Operations: 06/17/2018 Surgeon(s) and Role: * Edinson Grider III, MD - Primary * Shin Elam MD - Resident-Surgeon Chief: Procedure(s): CYSTO, RETROGRADE, URETEROPYELOGRAPHY (WRVU 2.37) Operative Findings: 1. B/l orthotopic newtok UOs 2. 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 Normal bladder 4. No contrast passed proximally up left newtok ureter, unable to advance wire, distal ureter had been previously ligated Hospital Course: Ethel Akins was admitted to the Transplant Surgery service on 06/16/18 with RIGHT abdominal pain. Work up with CT scan and abdominal US was notable for hydronephrosis of left newtok ureter with 6x10mm stone. No evidence of sepsis or intraperitoneal process with reassuring imag ing/labs, benign abdominal exam and vital signs within normal limits. 06/17/18 the patient was taken to the OR with urology and retrograde ureteropyelogram confirmed, as noted in op report, that the L newtok ureter had been ligated during previous Boari flap reconstruction. The afternoon of 06/17/18 the patient reported his abdominal pain radiated into his groin and scrotum- scrotal US was obtained for concern for epididymitis/orchidis which was unremarkable (see results below). The patient's hospital course was uncomplicated and he was deemed stable for discharge on Hospital day 1 with a 10 day course of ciprofloxacin, and close follow up with the transplant clinic. Important Studies and Lab Data: IMPRESSION Testicular - Summary ?? 1. The testicles are homogenous and normal in size, without mass, atrophy, or abnormal blood flow. 2. Small epididymal cysts bilaterally. 3. Trace left hydrocele. 4. LEFT varicocele. ? Valencia Zepeda MD Pathology: none Microbiology: UA not reflexed to culture Labs: Lab Results Component Value Date Sodium 139 06/18/2018 Potassium 3.6 06/18/2018 Chloride 102 06/18/2018 CO2 25 06/18/2018 BUN 18 06/18/2018 Creatinine 1.34 06/18/2018 Glucose Lvl 113 06/18/2018 CBC Lab Results Component Value Date WBC 7.2 06/18/2018 Hemoglobin 15.6 06/18/2018 Hematocrit 45.5 06/18/2018 Platelets 259 06/18/2018 Pending Lab Data at Discharge: Hep C PCR Studies: None Discharge Exam: Last value Range last 12 hrs Temperature Temp: 36.6 ??C (97.9 ??F) Temp: [36.6 ??C (97.9 ??F)] Heart Rate Heart Rate: (!) 45 Heart Rate: -- Blood Pressure BP: 147/76 BP: (144-147)/(75-77) Respiratory Rate Resp: 16 Resp: [16-18] SpO2 SpO2: 96 % SpO2: [93 %-96 %] I/Os: I/O last 3 completed shifts: In: 800 [P.O.:400; I.V.:400] Out: 1380 [Urine:1380] I/O this shift: In: 240 [P.O.:240] Out: - Gen: NAD, alert & oriented x3 Pulm: CTAB, no crackles/wheezes Card: RRR, no m/r/g Abd: Non-distended, soft, appropriately tender. Wound: incision clean, dry, intact, no purulent drainage Ext: no edema, 2+ peripheral pulses Discharge Plans: Discharge to: home VNA: No Discharge Conditions/Prognosis: Stable Discharge Medications: The following medications have been prescribed for you. If you notice any adverse reactions to your medications, please contact your primary care physician immediately or go tothe nearest Emergency Department. Your Medications New Medications Dose Details ciprofloxacin 500 mg Tab Commonly known as: CIPRO Take 1 tablet by mouth 2 times daily for 10 days. 500 mg Quantity: 20 tablet Refills: 0 Continued medications with new dosing Dose Details oxyCODONE 5 mg Tab Commonly known as: ROXICODONE Take 1 tablet by mouth every 4 hours as needed for Pain for up to 5 doses. What changed: Another medication with the same name was removed. Continue taking this medication, and follow the directions you see here. 5 mg Quantity: 5 tablet Refills: 0 potassium phosphate (monobasic) 500 mg Tbso Commonly known as: K-PHOS Take 3 tabs at lunch time and 3 tabs at bedtime What changed: additional instructions Quantity: 540 tablet Refills: 3 Continued medications, unchanged Dose Details acetaminophen 500 mg Tab Commonly known as: TYLENOL Take 2 tablets by mouth every 8 hours. Take as directed around the clock for ten days after your surgery. After that you can take Tylenol as needed per package insert. 1000 mg Refills: 0 ascorbic acid (vitamin C) 500 mg Tab Commonly known as: VITAMIN C Take 1 tablet by mouth 3 times daily. 500 mg Quantity: 30 tablet Refills: 3 calciTRIol 0.5 mcg Cap Commonly known as: ROCALTROL Take 0.5 mcg by mouth daily. 0.5 mcg Refills: 0 clopidogrel 75 mg Tab Commonly known as: PLAVIX Take 75 mg by mouth daily. 75 mg Refills: 0 glipiZIDE 2.5 mg Tr24 Commonly known as: GLUCOTROL XL Take 5 mg by mouth daily. Indications: type 2 diabetes mellitus 5 mg Refills: 0 levothyroxine 137 mcg Tab Commonly known as: SYNTHROID Take 137 mcg by mouth daily. 137 mcg Refills: 0 Magnesium Gluconate 27 mg magnesium (500 mg) Tab Take 2 tablets by mouth 2 times daily for 90 days. 2 tablet Quantity: 360 tablet Refills: 1 mycophenolate 250 mg Cap Commonly known as: CELLCEPT Take one capsule twice daily. Kidney transplant 09/16/15. ICD code Z94.0 Quantity: 180 capsule Refills: 3 polyethylene glycol 17 gram Pwpk Commonly known as: MIRALAX Take 17 g by mouth 2 times daily. Take to maintain normal bowel pattern while taking narcotic pain medication. 17 g Refills: 0 PROGRAF 1 mg Cap Take two capsules in the morning and one at night. Kidney transplant 09/15/18. ICD code Z94.0 Generic drug: tacrolimus Quantity: 270 capsule Refills: 3 senna-docusate 8.6-50 mg Tab Commonly known as: PERICOLACE Take 2 tablets by mouth 2 times daily. Take to maintain normal bowel pattern while taking narcotic pain medication. 2 tablet Refills: 0 tamsulosin 0.4 mg Cap Commonly known as: FLOMAX Take 1 capsule by mouth nightly for 364 days. 0.4 mg Quantity: 30 capsule Refills: 11 Updated Allergies/ADRs: No Known Allergies Scheduled Appointments: No future appointments. Outpatient Services/Studies: No discharge procedures on file. Instructions Given to Patient at Discharge:. An After Visit Summary was printed and given to the patient. Patient Instructions [facility] Department of Surgery Discharge Instructions PROCEDURES THIS HOSPITALIZATION CYSTO, RETROGRADE, URETEROPYELOGRAPHY (WRVU 2.37) (Left SCORTAL ULTRASOUND DIET You may resume your regular diet. We recommend eating a regular healthy diet (ie; fresh fruits, vegetables and fiber-containing foods will assist in wound healing) ACTIVITY It is normal to feel tired after surgery/hospitalization. Be as active as tolerated as this will improve recovery and prevent blood clots. We recommend taking several slow, short walks each day for the first two weeks, and gradually increase your distance. We recommend at least 4 times a day. DRIVING No driving if you are too sore to enter or exit your vehicle comfortably, or if you are too sore toeasily check your blind spot. No driving while using narcotic pain medications. PAIN CONTROL We recommend taking tylenol 650mg every 4 hours or 1000mg every 6 hours for pain if needed. NEW MEDICATIONS Ciprofloxacin - Please take this medication as directed for 10 days CALL YOUR PHYSICIAN'S OFFICE IF: ??? You have a fever greater than 101 degrees Farenheit (38.3C) within one month of your surgery. ? ? You have diarrhea or vomiting for >24 hours, stop having bowel movements and/or passing flatus, have pain with urination. ??? You have worsening pain, not controlled with your pain medication. ??? You develop redness, swelling, or new drainage from your wound. If you have concerns or questions: - During the day, it is best to call the [facility] to speak with the Surgery nurses. The number is [phone]. - During the night or weekends call the [facility] [place] at [phone] and ask to speak to the surgery resident asset protection representative for general surgery. Please note: Your surgeon may not be Preventive Medicine Physician, especially during the night or on weekends, so be ready to describe yourself and your surgery when you call. FOLLOW UP You will have an appointment made with the transplant clinic- you will be contacted- please call with any questions Future Appointments Date Time Provider Department Center 06/18/2018 8:00 AM [facility] 8 [facility] information via phone/mail in the next week. If you do not hear anything, please call the clinic [phone] to confirm or reschedule. If you need a prior authorization, please call the General Surgery Clinic nurses [phone] for prior authorizations assistance General Instructions Instructions following Cystoscopic Surgery: Activity: As tolerated. You may find that with increasing activity you have more blood in your urine. If your urine becomes very bloody, limit your activity until it clears. Urination: You will likely have a small amount of blood in your urine for the next several days, upto 10-14 days. This is normal; however, if you are passing large amounts of blood clots, bright redblood or you are unable to urinate, please call our office at [phone] before 5PM or [phone] after hours. Call Doctor for: - copious blood or large clots in your urine - you are unable to urinate - severe back or side pain - pain not controlled by oral medications at home - persistent nausea and vomiting - any fever > 101.3F The number for questions is [phone] before 5 PM weekdays and [phone] after 5 PM and weekends. Follow-up Recommendations for Providers: CC: Urbano Denis DO Signed: Jennifer Palmer MD 06/18/2018 12:49 PM documented in this encounter Discharge Instructions * Discharge Instructions* Shin Elam - 06/17/2018 5:14 PM EST Instructions following Cystoscopic Surgery: Activity: As tolerated. You may find that with increasing activity you have more blood in your urine. If your urine becomes very bloody, limit your activity until it clears. Urination: You will likely have a small amount of blood in your urine for the next several days, upto 10-14 days. This is normal; however, if you are passing large amounts of blood clots, bright redblood or you are unable to urinate, please call our office at [phone] before 5PM or [phone] after hours. Call Doctor for: - copious blood or large clots in your urine - you are unable to urinate - severe back or side pain - pain not controlled by oral medications at home - persistent nausea and vomiting - any fever > 101.3F The number for questions is [phone] before 5 PM weekdays and [phone] after 5 PM and weekends. * Patient Instructions* Jennifer Palmer [facility] - 06/17/2018 5:29 PM EST [facility] Department of Surgery Discharge Instructions PROCEDURES THIS HOSPITALIZATION CYSTO, RETROGRADE, URETEROPYELOGRAPHY (WRVU 2.37) (Left SCORTAL ULTRASOUND DIET You may resume your regular diet. We recommend eating a regular healthy diet (ie; fresh fruits, vegetables and fiber-containing foods will assist in wound healing) ACTIVITY It is normal to feel tired after surgery/hospitalization. Be as active as tolerated as this will improve recovery and prevent blood clots. We recommend taking several slow, short walks each day for the first two weeks, and gradually increase your distance. We recommend at least 4 times a day. DRIVING No driving if you are too sore to enter or exit your vehicle comfortably, or if you are too sore toeasily check your blind spot. No driving while using narcotic pain medications. PAIN CONTROL We recommend taking tylenol 650mg every 4 hours or 1000mg every 6 hours for pain if needed. NEW MEDICATIONS Ciprofloxacin - Please take this medication as directed for 10 days CALL YOUR PHYSICIAN'S OFFICE IF: ??? You have a fever greater than 101 degrees Farenheit (38.3C) within one month of your surgery. ? ? You have diarrhea or vomiting for >24 hours, stop having bowel movements and/or passing flatus, have pain with urination. ??? You have worsening pain, not controlled with your pain medication. ??? You develop redness, swelling, or new drainage from your wound. If you have concerns or questions: - During the day, it is best to call the General Surgery Clinic to speak with the Surgery nurses. The number is [phone]. - During the night or weekends call the [facility] [place] operator at [phone] and ask to speak to the surgery resident asset protection representative for general surgery. Please note: Your surgeon may not be Preventive Medicine Physician, especially during the night or on weekends, so be ready to describe yourself and your surgery when you call. FOLLOW UP You will have an appointment made with the transplant clinic- you will be contacted- please call with any questions Future Appointments Date Time Provider Department Center 06/18/2018 8:00 AM [facility] ROOM 8 [facility] information via phone/mail in the next week. If you do not hear anything, please call the clinic [phone] to confirm or reschedule. If you need a prior authorization, please call the General Surgery Clinic nurses [phone] for prior authorizations assistance documented in this encounter Medications at Time of Discharge Medication Sig Dispensed Refills Start Date End Date levothyroxine (SYNTHROID) 137 mcg Tablet Take 137 mcg by mouth daily. ciprofloxacin (CIPRO) 500 mg Tablet Take 1 tablet by mouth 2 times daily for 10 days. 20 tablet 06/18/2018 06/28/2018 Magnesium Gluconate 27 mg magnesium (500 mg) Tablet Take 2 tablets by mouth 2 times daily for 90 days. 360 tablet 1 06/07/2018 11/15/2018 calciTRIol (ROCALTROL) 0.5 mcg Capsule Take 0.5 mcg by mouth daily. 07/15/2018 mycophenolate (CELLCEPT) 250 mg Capsule Take one capsule twice daily. Kidney transplant 09/16/15. ICD code Z94.0 180 capsule 3 12/22/2017 06/28/2018 PROGRAF 1 mg Capsule Take two capsules in the morning and one at night. Kidney transplant 09/15/18. ICD code Z94.0 270 capsule 3 12/11/2017 11/15/2018 polyethylene glycol (MIRALAX) 17 gram Powder in Packet Take 17 g by mouth 2 times daily. Take to maintain normal bowel pattern while taking narcotic pain medication. 11/26/2017 05/30/2019 potassium phosphate, monobasic, (K-PHOS) 500 mg Tablet, Soluble Take 3 tabs at lunch time and 3 tabs at bedtime 540 tablet 3 08/19/2017 11/15/2018 tamsulosin (FLOMAX) 0.4 mg Capsule, Sust. Release 24 hr Take 1 capsule by mouth nightly for 364 days. 30 capsule 11 07/30/2017 07/29/2018 ascorbic acid, vitamin C, (VITAMIN C) 500 mg Tablet Take 1 tablet by mouth 3 times daily. 30 tablet 3 06/25/2016 12/27/2020 clopidogrel (PLAVIX) 75 mg Tablet Take 75 mg by mouth daily. 02/17/2020 documented as of this encounter Progress Notes * Nikolas Flores RN - 06/18/2018 3:05 PM EST Patient Name: Ethel Akins Patient Age: 67 y.o. Birthdate: 1950 Admit date: 06/16/2018 Attending Physician: Jennifer Amaro MD Patient Ethel discharged to home today @ 1500. New medications and discharge paperwork reviewed with patient. Patient reported understanding. Patient had no questions or concerns regarding care. * Jennifer Amaro MD - 06/18/2018 1:49 PM EST [facility] [place] Patient Name: Ethel Akins : [id number] MR#: [id number] Admit Date: 06/16/2018 2:45 PM Mr. Akins is hospital day #2 following admission for right lower quadrant pain that radiates to the right testicle. I reviewed Dr. Arredondo's operative report yesterday and the records suggested that Dr. Arredondo ligated the left newtok ureter at the patient's Boari flap reconstruction operation that took place in 2015. This was likely to have explained the dilated left newtok kidney collecting system and hydroureter. I contacted Dr. Thakur and discussed this information with him. Dr. Bettencourtadiscussed the case with Dr. Arredondo and suggested that we proceed with retrograde nephrostogram in order to confirm that the ureter is ligated as there is CT evidence of a calculus in the left ureter and this would warrant intervention if the ureter is patent. This procedure was performed yesterday afternoon and did confirm that the left ureter was ligated at that operation. No further intervention was indicated nor carried out by the Urology team. The patient's pain improved in the last 24 hours based upon my most recent assessment late morning today. He has had no evidence of peritonitis. My examination yesterday revealed right testicular discomfort on palpation and a scrotal US was performed today that showed intact flow to both testes with small bilateral epididymal cysts. No evidence of testicular masses and no concern for torsion (Mahesh had no clinical concern). He has remained afebrile with a normal WBC ct throughout the hospital stay. Urine and blood cultures that were drawn on admission show no evidence of infectious organisms. Subjective: Vital Signs: Wt Readings from Last 1 Encounters: 06/16/18 98.9 kg (218 lb) Temp: [36.4 ??C (97.5 ??F)-36.7 ??C (98.1 ??F)] Heart Rate: [44-49] Resp: [16-19] BP: (99-174)/(50-79) Physical Exam ?? Awake and alert, smiling and in no distress ?? Abdomen soft, nontender, nondistended. I cannot elicit pain on palpation over any of the four quadrants. There is no evidence of peritonitis. Labs: Lab Results Component Value Date WBC 7.2 06/18/2018 HGB 15.6 06/18/2018 HCT 45.5 06/18/2018 MCV 88.7 06/18/2018 Lab Results Component Value Date NA 139 06/18/2018 K 3.6 06/18/2018 CL 102 06/18/2018 CO2 25 06/18/2018 Lab Results Component Value Date ALT 14 06/18/2018 AST 14 06/18/2018 ALKPHOS 61 06/18/2018 BILITOT 2.7 (H) 06/18/2018 Lab Results Component Value Date BUN 18 06/18/2018 Lab Results Component Value Date CREATININE 1.34 06/18/2018 Lab Results Component Value Date CALCIUM 8.8 06/18/2018 PHOS 3.3 06/18/2018 Assessment/Plan: RLQ/R testicular pain: Presumptive diagnosis is epididymitis and I intend to treat him with Cipro x10 days as recommended for males > age 35 years. He has no risk factors for STD. We have no objective findings to suggest any other diagnosis at this time and no new symptoms have emerged through his hospital stay. Discussed with Urology team. His pain is improved today and he is aware that he should contact us or go to an emergency department if the pain returns following discharge. Graft function: normal graft function with serum creatinine level that is at his baseline of 1.3 today. No concerns about his transplant graft. Immunosuppression: Confirmed the following dosing with our coordinator team which will be his discharge regimen: Prograf 2 Cellcept 250 mg po bid ID: Dr. Eagle requested that we send hep C PCR surveillance testing following his hep C treatment. The last PCR study demonstrated undetectable copy numbers in 09/19. This was sent today prior to discharge from the hospital. Dispo: RTC in approximately two weeks for a followup evaluation. The patient has travel plans for the holidays and we will work around his travel schedule to arrange this appointment. JENNIFER AMARO MD Solid Organ Transplant Program 06/18/2018 * Victor Manuel Mace, DO - 06/17/2018 10:03 PM EST POST-OPERATIVE ASSESSMENT Ethel Akins is a 67 y.o. male with a s/p retrograde ureteropyelography for hydronephrosis. Intraoperative findings as follows: 1. B/l orthotopic newtok UOs 2. 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 Normal bladder 4. No contrast passed proximally up left newtok ureter, unable to advance wire, distal ureter had been previously ligated Procedure(s): CYSTO, RETROGRADE, URETEROPYELOGRAPHY (WRVU 2.37) S: Pt has no complaints. Denies nausea, vomiting, chest pain, shortness of breath. Tolerating Regular diet. Ambulating. Voiding. O: BP 174/79 Pulse (!) 45 Temp 36.7 ??C (98.1 ??F) Resp 18 Ht 177.8 cm (5' 10) Wt 98.9 kg (218 lb) SpO2 94% BMI 31.28 kg/m?? UOP = 100cc blood stained EXAM Gen: NAD, resting comfortably CV: regular rate Pulm: unlabored respirations on RA, CTAB Abd: soft, tender in RLQ, non-distended Ext: no cyanosis or edema Lines/Tubes/Drains: - PIV LABS Recent Labs 06/17/1861806/16/18215306/16/18 1605 WBC 7.6 9.2 7.4 HGB 15.9 15.7 16.5 HCT 45.6 44.8 47.0 PLATELET 274 270 278 Recent Labs 06/17/1861806/16/18215306/16/18 1605 NA 139 139 139 K 3.5 3.4* Not Perf CL 102 101 99 CO2 25 24 28 BUN 14 14 17 CREATININE 1.20 1.12 1.24 GLUCOSE 108 99 93 CALCIUM 8.8 8.9 9.3 MAGNESIUM 0.70 0.61* -- PHOS 2.8 2.9 -- A/P: Ethel Akins is a 67 y.o. male s/p above procedures, currently in stable condition and recovering well following surgery. Appropriate for the floor. Pain well-controlled. Hemodynamically stable. - Continue PO fluid intake and monitoring UOP. Monitor for increased bleeding. Creatinine 1.2 from 1.12. H&H stable. - Continue pain meds - Continue Regular diet - Continue post-op plan Victor Manuel Mace, DO 06/17/18 * Karly Parra RN - 06/17/2018 4:31 PM EST Pt awake, states he is comfortable. Report to Tomasa on 4w. * Jennifer Palmer - 06/17/2018 2:18 PM EST Surgery Inpatient Progress Note ID: Ethel Akins is a 67 y.o. male with hx of HCV, DM, HTN s/p donor kidney transplant 09/16/15 who is HD 1 after presenting to the ED with RLQ abdominal pain, found to have obstructed newtok LEFT ureter with 6x10mm stone 24h/S Reports continued RLQ abdominal pain that radiates to his right groin. Pain is controlled with medications. denies f/c/n/v/sob/cp. Denies dysuria or hematuria. -Admitted -Urology consulted -NPO for possible procedure -Bactrim started last night O: Last value Range last 24hrs Temperature Temp: 36.3 ??C (97.3 ??F) Temp: [36.3 ??C (97.3 ??F)-36.8 ??C (98.2 ??F)] Heart Rate Heart Rate: 53 Heart Rate: [53] Blood Pressure BP: 167/81 BP: (155-167)/(74-81) Respiratory Rate Resp: 17 Resp: [16-17] SpO2 SpO2: 91 % SpO2: [91 %-98 %] 06/16 07 - 06/17 07 In: - Out: 700 [Urine:700] PE: General: AOx3, NAD, conversant HEENT: PERRL, anicteric sclerae Cardiopulm: RRR Abd: soft, nontender, non-distended- benign Skin: warm, dry Neuro: Non-focal, moving all four extremities spontaneously Labs: Recent Labs 06/17/18 0606/16/18 21506/16/18 1605 WBC 7.6 9.2 7.4 HGB 15.9 15.7 16.5 HCT 45.6 44.8 47.0 PLATELET 274 270 278 Recent Labs 06/17/18 0606/16/18215306/16/18 1605 NA 139 139 139 K 3.5 3.4* Not Perf CL 102 101 99 CO2 25 24 28 BUN 14 14 17 CREATININE 1.20 1.12 1.24 GLUCOSE 108 99 93 CALCIUM 8.8 8.9 9.3 MAGNESIUM 0.70 0.61* -- PHOS 2.8 2.9 -- Microbiology: Urine Cx- not reflexed Imaging: Abdomen US IMPRESSION 1. Cholelithiasis without evidence of acute cholecystitis. Mobile stone in the neck of the gallbladder. 2. Mild hepatomegaly and hepatosteatosis. No hepatic mass. 3. Atrophic right kidney. 4. Limited assessment of the pancreas secondary to overlying bowel gas. ?? Jospeh See MD Ct Abdomen & Pelvis Wo Contrast The absence of intravenous contrast limits the evaluation of solid viscera and vasculature. ?? Right kidney/ureter: Severely atrophic as noted previously.. No RIGHT renal collecting system obstruction ?? Left kidney/ureter: New LEFT hydronephrosis and hydroureter to the level of the mid pelvis where a nonobstructing, 6 x 10 mm oval calculus is lodged in the LEFT ureter. As noted previously there is severe atrophy of the newtok LEFT kidney.. ?? Transplant kidney: Transplant kidney noted in LEFT lower quadrant. Grossly stable in appearance, aside from interval removal of a previously noted percutaneous nephrostomy catheter. ?? Urinary Bladder: Limited. Decompressed. No intravesicular calculi. ?? Lower chest: Normal. ?? Liver: Normal. Bile ducts: Nondilated. Gallbladder: There is layering gallbladder sludge Pancreas: Normal attenuation without ductal dilatation. Spleen: Normal. Adrenals: Normal. ?? Vasculature: No aneurysm. Lymph Nodes: No enlarged lymph nodes. Bowel: Nondilated, no wall thickening. Scattered colonic diverticula. No diverticulitis. Peritoneum and mesentery: No ascites, free air, or loculated fluid collection. No mesenteric inflammation. Abdominal wall: Normal. ?? Reproductive organs: Normal. Osseous structures: No suspicious lesions. ?? IMPRESSION New LEFT hydronephrosis and hydroureter secondary to a 6 x 10 oval obstructing calculus in the mid LEFT ureter A/P: Ethel Akins is a 67 y.o. male with hx of donor kidney transplant in 2016 who was admitted with abdominal pain and imaging showing 6x10mm obstructing stone in LEFT newtok ureter. He continues to report R>L Abdominal pain and reported this morning that his pain radiates to his right groin and scrotum. No evidence of sepsis or intraperitoneal process with reassuring imaging, benign abdominal exam and vital signs within normal limits. Plan for cystoscopic evaluation, retrograde ureterogram and possible stent today with urology. Transitioning antibiotics to ciprofloxacin, scrotal US tomorrow to evaluate possible epididymitis/orchitis with new complaint of scrotal/groin pain. Continue home medications. ?? Neuro: Pain- Oxycodone 5mg Q4hr PRN CV: BRIONNA Pulm: BRIONNA FEN: NPO, calcitriol, mag-ox, K-phos, levothyroxine Renal: cellcept 250 BID, prograf 2mg BID : flowmax GI: Dulcolax supp ID: Cipro 500mg BID Ppx: OOB, floor status, Full Code Jennifer Palmer MD Associated attestation - Jennifer Amaro MD - 06/17/2018 3:22 PM EST I have seen the patient and reviewed the resident's above history and I agree with the details as written. The assessment and plan were formulated in discussion with me and I agree with them as documented. Please see my note that include's today's assessment/plan that is an attestation to the admission H&P from last night. * Victor Manuel Mace DO - 06/17/2018 12:00 AM EST Patient seen for interval abdominal exam. Patent awoken from sleep. He denies nausea, vomiting. Admits to mild lower R abdominal pain well controlled and mild bloating. He reports passing flatus earlier in the day and no BM. On exam abdomen is soft, slightly distended, diffusely tender to palpationwith slight guarding. Not peritonitic. Victor Manuel Mace DO 06/17/18 documented in this encounter H&P Notes * Wali Bah MD - 06/16/2018 6:16 PM EST [facility] Department of Transplant Surgery Inpatient Consult Note Patient Name: Ethel Akins Patient Age: 67 y.o. Birthdate: 1950 Admit date: 06/16/2018 Attending Physician: Ari Lucero MD REQUESTED BY: ED CONSULTATION QUESTION: Obstruction of L newtok ureter. CC: RLQ abd pain 67??y.o. male w/ hx of HCV, DM, HTN who is s/p donor kidney transplant 09/16/15. 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 Previous Tx Hx: 0% PRA. Patient given Basliximab for induction. EBV +/+, CMV +/+; Rx post tx with Harvoni for hep C and he has cleared the infection. Presents to ED with abd pain. RLQ started on Sat. Some associated nasuea, emesis x1. Moderate at its worst, nothing of note relieved his pain. It has fluctuated over the last couple of days. He does have occasional pain on the L side of his belly too. Denies F/C/NS. He is making normal urine volume. He denies urinary symptoms of urgency, frequency, pain/burning. Denies malaise, otherwise feeling well except for this RLQ pain. Past Medical History: Past Medical History: Diagnosis [...] EG ASHWINI FISTULA UPPER EXTREMITY performed by Jennifer Amaro MD at [facility] OR ??? PRO REIMPLANT URETER, SINGLE URETER Left 05/20/2016 @URETERONEOCYSTOSTOMY ANASTOMOSIS OF SINGLE URETER TO BLADDER performed by Santosh Arredondo MD at [facility] OR ??? PRO REIMPLANT URETER, SINGLE URETER N/A 05/20/2016 @URETERONEOCYSTOSTOMY ANASTOMOSIS OF SINGLE URETER TO BLADDER performed by Jennifer Amaro MD at [facility] OR ??? PRO TOTAL KNEE ARTHROPLASTY Right 11/25/2017 TOTAL KNEE ARTHROPLASTY (WRVU 20.72) performed by Breezy Dale MD at [facility] OR ??? PRO TRANSPLANT, PREP CADAVER RENAL GRAFT N/A 09/16/2015 @PREPARATION CADAVERIC RENAL ALLOGRAFT performed by Franko Larkin MD at [facility] OR ??? PRO TRANSPLANTATION OF KIDNEY N/A 09/16/2015 @KIDNEY TRANSPLANT, WITHOUT RECIPIENT NEPHRECTOMY performed by Franko Larkin MD at [facility] OR Family History: Family History Problem Relation Age of Onset ??? Chronic Obstructive Pulmonary Disease Mother ??? Arrhythmia Mother ??? Heart Disease Father Social History: Social History Socioeconomic History ??? Marital status: Spouse name: Not on file ??? Number of children: Not on file ??? Years of education: Not on file ??? Highest education level: Not on file Social Needs ??? Financial resource strain: Not on file ??? Food insecurity - worry: Not on file ??? Food insecurity - inability: Not on file ??? Transportation needs - medical: Not on file ??? Transportation needs - non-medical: Not on file Occupational History ??? Not on file Tobacco Use ??? Smoking status: Current Some Day Smoker Types: Cigars Last attempt to quit: 01/02/2015 Years since quittin.4 ??? Smokeless tobacco: Never Used ??? Tobacco comment: cigars, one weekly Substance and Sexual Activity ??? Alcohol use: No ??? Drug use: Yes Types: Marijuana Comment: 1-2x a week ??? Sexual activity: Not on file Other Topics Concern ??? Not on file Social History Narrative ??? Not on file Review of Systems: A 10-point review of systems was conducted and is otherwise non-contributory expect whereas discussed in the HPI. Physical Exam: Last value Range last 24hrs Temperature Temp: 36.7 ??C (98.1 ??F) Temp: [36.7 ??C (98.1 ??F)] Heart Rate Heart Rate: 53 Heart Rate: [53-59] Blood Pressure BP: 157/75 BP: (157-172)/(75-82) Respiratory Rate Resp: 16 Resp: [16] SpO2 SpO2: 98 % SpO2: [97 %-98 %] Physical Exam: General: NAD, A&Ox3, resting in bed HEENT: normocephalic, atraumatic, anicteric sclerae CVS: RRR, no m/r/g Pulm: CTAB, no wheezes or rhonchi Abd: soft, mildly tender in the RLQ, non-distended. Well healed scars. No guarding. Mild CVA TTP onthe L, mild L abdominal pain with deep palpation. Skin: warm, dry, no edema. Neuro: Grossly intact, nonfocal, moving all four extremities spontaneously. MSK: 5/5 strength, normal sensation/ROM in all 4 extremities. Medications: No current facility-administered medications on file prior to encounter. Current Outpatient Medications on File Prior to Encounter Medication Sig Dispense Refill ??? Magnesium Gluconate 27 mg magnesium (500 mg) Tablet Take 2 tablets by mouth 2 times daily for 90 days. 360 tablet 1 ??? oxyCODONE (ROXICODONE) 5 mg Tablet Take 1 tablet by mouth every 4 hours as needed for Pain. 40 tablet 0 ??? calciTRIol (ROCALTROL) 0.5 mcg Capsule Take 0.5 mcg by mouth daily. ??? oxyCODONE (ROXICODONE) 5 mg Tablet 1 TABLET EVERY 4-6 HOURS PRN 30 tablet 0 ??? mycophenolate (CELLCEPT) 250 mg Capsule Take one capsule twice daily. Kidney transplant 09/16/15. ICD code Z94.0 180 capsule 3 ??? PROGRAF 1 mg Capsule Take two capsules in the morning and one at night. Kidney transplant 09/15/18. ICD code Z94.0 270 capsule 3 ??? senna-docusate (PERICOLACE) 8.6-50 mg Tablet Take 2 tablets by mouth 2 times daily. Take to maintain normal bowel pattern while taking narcotic pain medication. (Patient not taking: Reported on 01/04/2018) ??? polyethylene glycol (MIRALAX) 17 gram Powder in Packet Take 17 g by mouth 2 times daily. Take to maintain normal bowel pattern while taking narcotic pain medication. (Patient not taking: Reportedon 01/04/2018) ??? acetaminophen (TYLENOL) 500 mg Tablet Take 2 tablets by mouth every 8 hours. Take as directed around the clock for ten days after your surgery. After that you can take Tylenol as needed per package insert. ??? glipiZIDE (GLUCOTROL XL) 2.5 mg Tablet Extended Rel 24 hr Take 5 mg by mouth daily. Indications: type 2 diabetes mellitus ??? levothyroxine (SYNTHROID) 137 mcg Tablet Take 137 mcg by mouth daily. ??? potassium phosphate, monobasic, (K-PHOS) 500 mg Tablet, Soluble Take 3 tabs at lunch time and 3tabs at bedtime (Patient taking differently: Take 2 tabs at lunch time and 2 tabs at bedtime) 540 tablet 3 ??? tamsulosin (FLOMAX) 0.4 mg Capsule, Sust. Release 24 hr Take 1 capsule by mouth nightly for 364days. 30 capsule 11 ??? ascorbic acid, vitamin C, (VITAMIN C) 500 mg Tablet Take 1 tablet by mouth 3 times daily. 30 tablet 3 ??? clopidogrel (PLAVIX) 75 mg Tablet Take 75 mg by mouth daily. Allerigies: No Known Allergies DATA INDEPENDENTLY REVIEWED - Labs: Recent Results (from the past 24 hour(s)) Comprehensive metabolic panel (non-fasting) Result Value Ref Range Glucose Lvl 93 65 - 199 mg/dL BUN 17 10 - 20 mg/dL Creatinine 1.24 0.80 - 1.50 mg/dL Sodium 139 135 - 145 mmol/L Potassium Not Perf 3.5 - 5.0 Chloride 99 98 - 107 mmol/L CO2 28 22 - 31 mmol/L Anion Gap 12 5 - 15 mmol/L Calcium 9.3 8.5 - 10.5 mg/dL Total Protein 7.6 6.1 - 8.0 gm/dL Albumin 4.0 3.2 - 5.2 gm/dL AST Not Perf 0 - 39 ALT Not Perf 0 - 55 Alk Phos 64 40 - 120 unit/L Total Bilirubin 2.0 (H) 0.2 - 1.3 mg/dL eGFR 59 (L) >=60 mL/min/1.73 m?? eGFR 68 >=60 mL/min/1.73 m?? Lipase Result Value Ref Range Lipase 36 0 - 60 unit/L Hemogram Result Value Ref Range WBC 7.4 4.0 - 9.5 x10(3)/mcL RBC 5.45 4.58 - 5.54 x10(6)/mcL Hemoglobin 16.5 13.7 - 16.5 gm/dL Hematocrit 47.0 40.5 - 48.5 % MCV 86.2 82.9 - 93.1 fL MCH 30.3 27.5 - 32.1 pg MCHC 35.1 32.0 - 35.7 gm/dL Platelets 278 145 - 357 x10(3)/mcL RDWSD 40.4 36.0 - 45.0 fL RDWCV 13.1 11.4 - 13.8 % MPV 9.7 7.6 - 12.9 fL nRBC % Auto 0.0 % nRBC Abs Auto 0.000 0.000 - 0.000 x10(3)/mcL Differential, Automated Result Value Ref Range Neutrophils % 63.5 % Neutr Abs (ANC) 4.68 1.70 - 6.10 x10(3)/mcL Lymphocytes % 24.5 % Lymphocytes Abs 1.8 0.9 - 3.2 x10(3)/mcL Monocytes % 7.3 % Monocyte Abs 0.5 0.3 - 0.9 x10(3)/mcL Eosinophils % 3.3 % Eosinophils Abs 0.2 0.0 - 0.4 x10(3)/mcL Basophils % 1.0 % Basophils Abs 0.1 0.0 - 0.1 x10(3)/mcL Immature Gran % 0.40 % Ayesha Gran Abs 0.03 0.00 - 0.04 x10(3)/mcL Blue Tube HOLD Result Value Ref Range Blue Hold Sample in lab. Gold Tube HOLD Result Value Ref Range Gold Hold Sample in lab. CT Abdomen & Pelvis wo Contrast Final Result New LEFT hydronephrosis and hydroureter secondary to a 6 x 10 oval obstructing calculus in the mid LEFT ureter. Abdomen Limited Final Result 1. Cholelithiasis without evidence of acute cholecystitis. Mobile stone in the neck of the gallbladder. 2. Mild hepatomegaly and hepatosteatosis. No hepatic mass. 3. Atrophic right kidney. 4. Limited assessment of the pancreas secondary to overlying bowel gas. Joseph See MD Electronically Signed Final Report 06/16/2018 04:48 pm Urinalysis pending ASSESSMENT/RECOMMENDATIONS: Ethel Akins is a 67 y.o. male w/ an odd story of abdominal pain in the RLQ. He is non-toxic and his only objective finding on CT is a 6x10mm obstructing L newtok ureteral stone with new hydronephrosis. His appendix is very normal and well visualized on CT. There are no other obvious sources of his discomfort. Ddx includes pain from the hydro, or possible some viral etiology such as mesenteric adenitis, although there is no e/o of this on CT. His labs and overall appearance are generally reassuring. - Given his symptoms and immune suppressed status, we will admit for observation overnight. - Urology has seen the patient the stone, outpatient plan made for stone intervention. - NPO, IVF, serial abdomina exams tonight. I have discussed the findings and plans with the attending physician of this consulting service andthe primary team as listed above. WALI BAH MD 06/16/2018 pgr [phone] Associated attestation - Jennifer Amaro MD - 06/17/2018 11:58 AM EST I have seen the patient and reviewed the resident's above history and I agree with the details as written. The assessment and plan were formulated in discussion with me and I agree with them as documented. Mr. Akins is a 67-yo male who I know very well following his donor kidney transplant operation in 2016. He has a history of treated hepatitis C and has no detectable viral load. He did not have a history of cirrhosis. The patient developed acute onset RLQ pain without fevers or rigors on Thursday and presented to [facility] where he was worked up in their emergency department and received aRUQ US that did not demonstrate evidence of acute cholecystitis or a dilated biliary system. He wasdischarged home the same day and continued to experience low level gnawing pain in the RLQ that was in a 4-5 range. He had one episode of nausea and emesis on Thursday prior to the [facility] visit. This spontaneously resolved and he has not experienced any further nausea or emesis symptoms. He has been tolerating solid foods and liquids without issues. He is having normal bowel movements and has notexperienced abdominal distension throughout the week in association with his pain symptoms. He denies cloudy urine and dysuria symptoms. He has not had hematuria. There has been no change in his typical urine volume over the last week. The patient did not notify the Transplant team about these issues over the course of the week and the patient re-presented to our emergency department for evaluation. The ED team performed RUQ US imaging that demonstrated an uninflamed gallbladder with negative so nographic Rosales's sign and no evidence of biliary ductal dilation. The ED team also performed a CTscan of the abdomen/pelvis that demonstrated no evidence of inflammation in the RLQ. The appendix is well-visualized and there is no evidence of appendiceal wall thickening or periappendiceal inflammation. There are no periappendiceal abscesses or any other collections in the RLQ. I see no evidenceof colitis or terminal ileitis. There is no evidence of abdominal wall hernias. I see no evidence of recurrent R inguinal hernia. There is a large amount of stool in the colon. The only notable finding is that the patient has a 6 x 10 mm calculus in the ureter of the LEFT [place] kidney with evidence of proximal hydroureter and hydronephrosis. There is no gas in the collecting system proximal to this obstruction. Review of Dr. Arredondo's 05/2016 operative report indicates that the left newtok ureter was ligated at that procedure which explains this finding. The LLQ transplant kidney shows no evidence of inflammation and there is no evidence of transplant allograft hydronephrosis. The ED team contacted us for consultation based upon these findings. On presentation, he was afebrile and hemodynamically stable. His kidney transplant function is intact at his baseline level with a serum creatinine level of 1.2. WBC ct is normal. Amylase and lipase levels were in the normal range. Total bilirubin level was slightly elevated on presentation at 2.0 and trended up slightly overnight to 2.8. He has no evidence of jaundice. He was resting comfortablyin the ED bed and during our evaluation in the ED walked around the ED hallways. He was very comfortable during the ambulation and showed no sign of significant pain. On my examination, he has a benign, non-distended abdomen. I cannot elicit pain on superificial or deep palpation in any of the fourquadrants. Negative Rosales's sign. He denies pain when I shake his abdominal wall. There is no evidence of peritonitis on my exam. There is no evidence of incisional hernia at the midline or LLQ wounds. He does not have left flank / CVA tenderness on my examination. On serial examinations by our house staff team throughout the night there has been no change in hisabdominal exam. On my serial examination this morning, there is no change in his abdominal exam. Hehas no evidence of peritonitis and I cannot elicit pain on deep palpation of any of the four quadrants of his abdominal wall. Repeat CBC continues to show a normal WBC ct. He had no fevers overnight.He has not experienced nausea or vomiting overnight. He continues to express the desire for food and remains hungry today. UA that was sent overnight did not demonstrate hematuria or pyuria. A/P: - Admit to the hospital - Blood and urine cultures sent overnight, await preliminary results - NPO - Greatly appreciate Urology involvement. Await final recommendations about whether there is any need for therapy of the dilated left newtok kidney tract in the setting of the left newtok kidney ureter ligation in 2016. This is not likely to explain the patient's symptoms. - Continue to trend total bilirubin level with labs tomorrow - Continue serial abdominal examinations. The patient does not have peritonitis and has a very unremarkable examination. There has not been an indication for surgical exploration since admission to the hospital. - Pain control - He has intact renal allograft function with serum creatinine level at his baseline of 1.2. We restarted the doses of Prograf and Cellcept that the patient claims are his home doses. Will verify this with the post-improvement coordinator team. Tacrolimus trough level pending and will return this afternoon. No indication for reduction in immunosuppression at this time. documented in this encounter ED Notes * Halima Contreras RN - 06/16/2018 5:20 PM EST Pt reports he just went to bathroom, aware we need urine sample and will collect with next urination. * Giovanna Arriola - 06/16/2018 3:06 PM EST Ethel Akins is an 67 y.o. male who presents to the ED with: Chief Complaint Patient presents with ??? Abdominal Pain HPI Ethel Akins is a 67 y.o. male with a PMH significant for hx of HCV (s/p Jannetoni), DM (on glipizide), HTN (not currently on any medications), hypothyroidism and donor kidney transplant 09/16/15 (on Prograf/Cellcept) who presents to the Emergency Department with RLQ pain. Patient states that Thursday he presented to [facility] with what he thought was appendicitis; he states that he they diagnosed him with a gallstone via MRI. Went to PCP yesterday who told him to go to the hospital if symptoms returned. States that the pain in in RLQ and radiates to right testicle, is constant, and cannot identify exacerbating/relieving factors. States 4-5/10. Has not had pain like this before. Had 2x cup coffee and tristanian muffin today, but states that appetite has been unchanged. Vomited Thursday morning, denies currently nausea or more recent vomiting. States he also vomited one time several weeks ago. Denies changes in bowel habits/diarrhea, has not had a BM today. Denies changes in food or exotic food intake- eats sandwiches, cereal, meat and potatoes. Uses an artisan well/filter for water. Lives with , she has not had vomiting or other GI symptoms. Also lives with four dogs who are well, no diarrhea. Does not regularly check blood sugars. Does not take BM reg or oxycodone per his chart. Feels that he takes an HTN medication but cannot recall and is not in his chart. Drinks approximately 3L water daily as instructed by [facility]. Has been retired since , states that he spends his time piddling around the house. Review of Systems: Review of Systems Constitutional: Negative for appetite change, chills and fever. HENT: Negative for congestion, sneezing and sore throat. Eyes: Negative for visual disturbance. Respiratory: Negative for shortness of breath. Cardiovascular: Negative for chest pain. Gastrointestinal: Positive for abdominal distention, abdominal pain, nausea and vomiting. Negative for anal bleeding, blood in stool, constipation, diarrhea and rectal pain. Endocrine: Positive for polyuria. Negative for polydipsia. Genitourinary: Positive for testicular pain. Negative for dysuria and flank pain. Musculoskeletal: Negative for myalgias. Skin: Negative for rash and wound. Neurological: Negative for dizziness, seizures, weakness and headaches. Hematological: Negative for adenopathy. Psychiatric/Behavioral: Negative for behavioral problems, confusion and dysphoric mood. Patient Vitals for the past 8 hrs: BP Temp Temp src Pulse Resp SpO2 06/16/18 1727 157/75 36.7 ??C (98.1 ??F) Oral 53 16 98 % 06/16/18 1235 172/82 36.7 ??C (98.1 ??F) Oral 59 16 97 % I have reviewed the vital signs, which demonstrates HTN. Physical Exam: Physical Exam Constitutional: He is oriented to person, place, and time. He appears well- developed and well-nourished. No distress. HENT: Head: Normocephalic and atraumatic. Eyes: EOM are normal. Pupils are equal, round, and reactive to light. Right eye exhibits no discharge. Left eye exhibits no discharge. Neck: Normal range of motion. Neck supple. Cardiovascular: Normal rate and regular rhythm. Pulmonary/Chest: Effort normal and breath sounds normal. Abdominal: Soft. Bowel sounds are normal. He exhibits distension. He exhibits no mass. There is tenderness. There is no rebound and no guarding. Genitourinary: Penis normal. Right testis shows tenderness. Musculoskeletal: Normal range of motion. He exhibits no edema. Neurological: He is alert and oriented to person, place, and time. No cranial nerve deficit. Coordination normal. Skin: Skin is warm and dry. Psychiatric: He has a normal mood and affect. His behavior is normal. Tenderness most acute in low RLQ with intermittent radiation to right testicle. Tenderness in RUQ intermittent on palpation. Recent Results (from the past 24 hour(s)) Comprehensive metabolic panel (non-fasting) Result Value Ref Range Glucose Lvl 93 65 - 199 mg/dL BUN 17 10 - 20 mg/dL Creatinine 1.24 0.80 - 1.50 mg/dL Sodium 139 135 - 145 mmol/L Potassium Not Perf 3.5 - 5.0 Chloride 99 98 - 107 mmol/L CO2 28 22 - 31 mmol/L Anion Gap 12 5 - 15 mmol/L Calcium 9.3 8.5 - 10.5 mg/dL Total Protein 7.6 6.1 - 8.0 gm/dL Albumin 4.0 3.2 - 5.2 gm/dL AST Not Perf 0 - 39 ALT Not Perf 0 - 55 Alk Phos 64 40 - 120 unit/L Total Bilirubin 2.0 (H) 0.2 - 1.3 mg/dL eGFR 59 (L) >=60 mL/min/1.73 m?? eGFR 68 >=60 mL/min/1.73 m?? Lipase Result Value Ref Range Lipase 36 0 - 60 unit/L Hemogram Result Value Ref Range WBC 7.4 4.0 - 9.5 x10(3)/mcL RBC 5.45 4.58 - 5.54 x10(6)/mcL Hemoglobin 16.5 13.7 - 16.5 gm/dL Hematocrit 47.0 40.5 - 48.5 % MCV 86.2 82.9 - 93.1 fL MCH 30.3 27.5 - 32.1 pg MCHC 35.1 32.0 - 35.7 gm/dL Platelets 278 145 - 357 x10(3)/mcL RDWSD 40.4 36.0 - 45.0 fL RDWCV 13.1 11.4 - 13.8 % MPV 9.7 7.6 - 12.9 fL nRBC % Auto 0.0 % nRBC Abs Auto 0.000 0.000 - 0.000 x10(3)/mcL Differential, Automated Result Value Ref Range Neutrophils % 63.5 % Neutr Abs (ANC) 4.68 1.70 - 6.10 x10(3)/mcL Lymphocytes % 24.5 % Lymphocytes Abs 1.8 0.9 - 3.2 x10(3)/mcL Monocytes % 7.3 % Monocyte Abs 0.5 0.3 - 0.9 x10(3)/mcL Eosinophils % 3.3 % Eosinophils Abs 0.2 0.0 - 0.4 x10(3)/mcL Basophils % 1.0 % Basophils Abs 0.1 0.0 - 0.1 x10(3)/mcL Immature Gran % 0.40 % Ayesha Gran Abs 0.03 0.00 - 0.04 x10(3)/mcL Blue Tube HOLD Result Value Ref Range Blue Hold Sample in lab. Gold Tube HOLD Result Value Ref Range Gold Hold Sample in lab. ED Course: - Patient was evaluated and discussed with Dr. Mendes, Dr. Lucero - Medications, allergies and past medical history reviewed - Medications and fluid administered: 2L - I have reviewed the labs, which are significant for: WBC wnl, Cr 1.24, UA negative - I have reviewed the imaging, which is significant for: no acute abdominal processes, nephrolithiasis and hydronephrosis as below CT non con ABD/PELV: FINDINGS: The absence of intravenous contrast limits the evaluation of solid viscera and vasculature. ?? Right kidney/ureter: Severely atrophic as noted previously.. No RIGHT renal collecting system obstruction ?? Left kidney/ureter: New LEFT hydronephrosis and hydroureter to the level of the mid pelvis where a nonobstructing, 6 x 10 mm oval calculus is lodged in the LEFT ureter. As noted previously there is severe atrophy of the newtok LEFT kidney.. ?? Transplant kidney: Transplant kidney noted in LEFT lower quadrant. Grossly stable in appearance, aside from interval removal of a previously noted percutaneous nephrostomy catheter. ?? Urinary Bladder: Limited. Decompressed. No intravesicular calculi. ?? Lower chest: Normal. ?? Liver: Normal. Bile ducts: Nondilated. Gallbladder: There is layering gallbladder sludge Pancreas: Normal attenuation without ductal dilatation. Spleen: Normal. Adrenals: Normal. ?? Vasculature: No aneurysm. Lymph Nodes: No enlarged lymph nodes. Bowel: Nondilated, no wall thickening. Scattered colonic diverticula. No diverticulitis. Peritoneum and mesentery: No ascites, free air, or loculated fluid collection. No mesenteric inflammation. Abdominal wall: Normal. ?? Reproductive organs: Normal. Osseous structures: No suspicious lesions. ?? IMPRESSION New LEFT hydronephrosis and hydroureter secondary to a 6 x 10 oval obstructing calculus in the mid LEFT ureter. US ABD: ------ LIVER: ------ Right Lobe Length: 18.7 cm Echogenicity/Echotexture: Increased in echogenicity diffusely with focal sparring in the gallbladder fossa ?? GALLBLADDER: Cholelithiasis: Single stone 1.16 cm Wall Thickness: 2.0 mm Focal Tenderness: Negative sonographic Rosales's sign ?? BILIARY TRACT: Intrahepatic Ducts: Normal Extrahepatic Ducts: Normal Common Duct Size: 4.0 mm ?? --------- PANCREAS: --------- Head: Not visualized, obscured by overlying bowel Tail: Not visualized, obscured by overlying bowel Body: Not visualized, obscured by overlying bowel ?? RIGHT KIDNEY: Size (cm) L: 8.2 Cortical Thickness: Cortical thinning Cortical Echogenicity: Echogenic Hydronephrosis: No sonographic evidence ?? Comment: Atrophic ?? ------ AORTA: ------ Measurements (cm): Proximal AP: 3.0 ?? Comment: Poorly visualized due to overlying bowel. ?? ---- IVC: ---- Normal in caliber where visualized. FLUID COLLECTIONS: No sonographic evidence. ?? IMPRESSION 1. Cholelithiasis without evidence of acute cholecystitis. Mobile stone in the neck of the gallbladder. 2. Mild hepatomegaly and hepatosteatosis. No hepatic mass. 3. Atrophic right kidney. 4. Limited assessment of the pancreas secondary to overlying bowel gas. Assessment and Plan: MDM: 67 y.o. male with L donor kidney who presents for RLQ pain of unknown etiology found to have Lobstructing 6x10 mm renal calculous and new hydronephrosis in newtok kidney. He was seen by transplant medicine and urology. CT wo of ABD/PELV did not reveal appendicitis or acute abdominal process. US showed cholelithiasis but not cholecystitis. Blood work and history inconsistent with infectious process, however the patient is immunosuppressed. Due to concerns regarding his tenuous renal status, he was started on fluids with plans to be admitted overnight with potential surgical followup (likely can be done o/p). Plan: Admit to transplant medicine. Giovanna Arriola MD Resident 06/16/[id number] Associated attestation - Ari Lucero MD - 06/17/2018 10:29 AM EST ATTENDING PHYSICIAN I have seen the patient and reviewed the resident's documentation and I agree with the details as written. The assessment and plan were formulated in discussion with me and I agree with them as documented. I also performed my own history and physical examination. Medical decision making in this note is my own. Somewhat confusing presentation but with a reassuring physical exam. Initial workup was for rule out appendicitis with right-sided abdominal pain. Kidney transplant patient with residual kidney stone and obstruction in his newtok kidney on the left. Because of the tenuous nature of his transplant the transplant service would like to admit him. documented in this encounter Miscellaneous Notes * Op Note - Edinson Grider III, MD - 06/17/2018 3:45 PM EST [facility] [place] Patient Name: Ethel Akins : [id number] MR#: [id number] Case Date: 06/17/2018 Surgeon: Surgeon(s) and Role: * Edinson Grider III, MD - Primary * Shin Elam MD - Resident-Surgeon Chief Preoperative diagnosis: Hydronephrosis Postoperative diagnosis: Hydronephrosis Procedure(s) (LRB): CYSTO, RETROGRADE, URETEROPYELOGRAPHY (WRVU 2.37) (Left) Findings: 1. B/l orthotopic newtok UOs 2. 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 Normal bladder 4. No contrast passed proximally up left newtok ureter, unable to advance wire, distal ureter had been previously ligated Anesthesia: General Estimated Blood Loss: 1cc Specimens removed during surgery: None Drains: none Surgical Closure: no incision Disposition: awakened from anesthesia, extubated and taken to the recovery room in a stable condition, having suffered no apparent untoward event. Condition: doing well without problems (Please see the Surgical Encounter Summary for any Implant and Specimen details pertinent to this patient.) HPI/Surgical Indications: Ethel Akins is a 67 yo M with history of reimplanted left graft kidney found to have left ureteral stone and hydronephrosis on CT for workup of abdominal pain. Now presents to OR for cysto and retrograde pyelogram. Procedure Description: The patient was identified in the pre-operative holding area. Consent was verified. The correct side of the procedure was marked. The patient was taken to the operating room and placed supine on the operating table. General anesthesia was induced. The patient was then moved to the lithotomy position and prepped and draped in the usual sterile fashion. A timeout was performed involving all membersof the OR team confirming the patient's identity and planned procedure. Preoperative antibiotics were administered. A 22 Fr rigid cystoscope was inserted into the bladder. 360 degree cystoscopy revealed b/l orthotopic newtok UOs and a widely patient reimplant ureter/Boari flap at left dome. No bladder lesions seen.. Next a Pollack catheter was inserted into the Left UO and contrast was instilled revealing no passage beyond 1cm proximal to the UO on retrograde pyelogram. An attempt at passing a glide wire was done and the wire did not advance. The bladder was emptied. The cystoscope was removed. The patient tolerated the procedure well and was awakened from anesthesia with no adverse events. The patient was taken to the recovery area in stable condition. Dr. Grider, the attending surgeon, was present for the entire procedure. Infection Bundle used? N/A Plan: -f/u scrotal ultrasound -no further management recommended for Left ureteral stone, no signs of infection I was the attending physician supervising the resident in the above care and was scrubbed for the entire procedure. * Plan of Care - Tomasa Crawford RN - 06/17/2018 2:48 PM EST Problem: Patient Care Overview Goal: Plan of Care Review 06/17/18 0403 Coping/Psychosocial Plan Of Care Reviewed With patient Plan of Care Review Progress no change Goal: Fall Prevention-Safe Patient Handling 06/17/18 0800 Restraint Interventions Safety Promotion/Fall Prevention activity supervised Activity Activity Type activity adjusted per tolerance Activity Assistance Provided independent Stephens Fall Risk History of Falling 0 Gait/Transferring 0 Mental Status 0 Score 15 OTHER Stephens Fall Risk Low Goal: Infection Control 06/17/18 0800 Safety Interventions Isolation Precautions standard precautions maintained Infection Prevention single patient room provided Goal: Discharge Needs Assessment 06/17/18 0403 Discharge Needs Assessment Concerns To Be Addressed basic needs concerns Discharge Disposition home or self-care Living Environment Transportation Available car;family or friend will provide * Initial Assessments - Giovanna Haro RN - 06/17/2018 1:40 PM EST Office of Care Management Initial Assessment Giovanna Haro RN reviewed record and discussed patient with Care Team. Source of Information: Patient interview; chart review. Introduced self/reviewed role; services accepted. Reason for Hospitalization: Reason for Admission as Stated by Patient: RUQ Abdomen pain Per Dr. Chen's note 06/17/2018 IMPRESSION 67 y.o. male with history of hepatitis, hypertension, diabetes and donor kidney transplantto the left lower quadrant presents with right lower quadrant abdominal pain. CT scan was notable for an incidental finding of a hydronephrotic left newtok kidney with a 6 x 10 mid to distal ureteralcalculus. Pt going to OR today for placement of left ureteral stent. Past Medical History: Diagnosis Date ??? Back pain ??? Colon polyp ??? CVA (cerebral vascular accident) Per report but no deficits ??? ESRD (end stage renal disease) ??? GERD (gastroesophageal reflux disease) ??? HTN (hypertension) ??? Microhematuria ??? Type 2 diabetes mellitus Hospitalizations Within the Past 30 Days: No Anticipated Length Of Stay (If known): Current Decision-Making Capacity: Full capacity. Advance Care Planning: Does not have. Discussed and provided advance directive booklet and forms, patient will discuss with family at a later time. Current Coping/Education/Information Needs: Coping well; anxious but cooperative. Current Functional Ability: Independent. Functional Status Prior to Admission: Independent. Home Environment: Pt and Mara live in a two level home with master bedroom and full bath on the first level. Social & Family Supports/Community Resources: . Behavioral Health History: Denied. Substance Use/Abuse: Occasional marijuana use; not everyday. Other Pertinent/Service Specific Information: Kidney transplant September 2015. Health/Prescription Coverage: Primary Insurance: MEDICARE Secondary Insurance: [facility] Prescription Coverage: Yes; can manage minimal out of pocket co-pays. [place] [facility] [place]'s [place]. Primary Care Provider: Urbano Denis DO [phone] Patient/Caregiver Goals of Treatment: Effective pain management; effective stent placement with lessoning of hydronephrosis. Potential Needs for Transition of Care: Rehab/SNF: no Home Health: no DME: Owns a cane, fww. Dialysis: no Community Resources: None offered. Transportation: [place] [facility] car here; he plans to drive himself home. Anticipated Barriers to Discharge/Special Considerations: None. Assessment: Pt admitted from the ED after complaining of right abdominal pain. CT of abdomen showed, normal left lower quadrant transplant kidney but a 6 x 10 mm obstructing stone in the mid to distal ureter with marketed hydronephrosis of the left newtok kidney. Plan: Pt going to OR today for placement of left ureteral stent. [facility]. Pt does not need any home services at time of interview. A member of the Care Management team will continue to monitor progress, follow for continuity of care and assist with transition of care planning. Giovanna Haro RN Pager: [phone] * Consult Note - Tal Chen MD - 06/17/2018 9:36 AM EST UROLOGY INPATIENT CONSULT NOTE CONSULT REQUESTED BY Jennifer Amaro MD HPI Ethel Akins is a 67 y.o. male with history HCV, DM, HTN who is status post donor kidney transplant (left) in September 2015 that was complicated by a ureteral stricture requiring multiple endoscopic dilations with definitive management with Boari flap repair who presents to the emergencydepartment with abdominal pain. The patient woke up Thursday morning and noted new onset dull right lower quadrant abdominal pain. Pain associated with some nausea and emesis x1. There were no other co-occurring symptoms including fevers, chills, shortness of breath, diarrhea, constipation, or rectal bleeding. When he started to feel rundown his abdominal pain did not improve he presented to the emergency department today for evaluation. Upon presentation, the patient was hemodynamically stable and afebrile. His labs were notable for awhite blood cell count of 7.4, although he is on immunosuppression and creatinine of 1.2 (his baseline). The patient was nontoxic-appearing. He underwent a abdominal ultrasound which showed cholelithi asis without evidence of acute cholecystitis, mild hepatomegaly and an atrophic right kidney. A CT scan was obtained which showed normal left lower quadrant transplant kidney but a 6 x 10 mm obstructing stone in the mid to distal ureter with marketed hydronephrosis of the left newtok kidney. Urology was consulted for obstructing ureteral stone of newtok left kidney in the setting of immunosuppression and transplant kidney. Interval Events - No acute events overnight - Hemodynamically stable, afebrile - Abdominal discomfort stable - No dysuria - Requesting food MEDICAL AND SURGICAL HISTORY Past Medical History: Diagnosis Date ??? Back [...] EG ASHWINI FISTULA UPPER EXTREMITY performed by Jennifer Amaro MD at [facility] OR ??? PRO REIMPLANT URETER, SINGLE URETER Left 05/20/2016 @URETERONEOCYSTOSTOMY ANASTOMOSIS OF SINGLE URETER TO BLADDER performed by Santosh Arredondo MD at [facility] OR ??? PRO REIMPLANT URETER, SINGLE URETER N/A 05/20/2016 @URETERONEOCYSTOSTOMY ANASTOMOSIS OF SINGLE URETER TO BLADDER performed by Jennifer Amaro MD at [facility] OR ??? PRO TOTAL KNEE ARTHROPLASTY Right 11/25/2017 TOTAL KNEE ARTHROPLASTY (WRVU 20.72) performed by Breezy Dale MD at [facility] OR ??? PRO TRANSPLANT, PREP CADAVER RENAL GRAFT N/A 09/16/2015 @PREPARATION CADAVERIC RENAL ALLOGRAFT performed by Franko Larkin MD at [facility] OR ??? PRO TRANSPLANTATION OF KIDNEY N/A 09/16/2015 @KIDNEY TRANSPLANT, WITHOUT RECIPIENT NEPHRECTOMY performed by Franko Larkin MD at [facility] OR No current facility-administered medications on file prior to encounter. Current Outpatient Medications on File Prior to Encounter Medication Sig Dispense Refill ??? Magnesium Gluconate 27 mg magnesium (500 mg) Tablet Take 2 tablets by mouth 2 times daily for 90 days. 360 tablet 1 ??? oxyCODONE (ROXICODONE) 5 mg Tablet Take 1 tablet by mouth every 4 hours as needed for Pain. 40 tablet 0 ??? calciTRIol (ROCALTROL) 0.5 mcg Capsule Take 0.5 mcg by mouth daily. ??? oxyCODONE (ROXICODONE) 5 mg Tablet 1 TABLET EVERY 4-6 HOURS PRN 30 tablet 0 ??? mycophenolate (CELLCEPT) 250 mg Capsule Take one capsule twice daily. Kidney transplant 09/16/15. ICD code Z94.0 180 capsule 3 ??? PROGRAF 1 mg Capsule Take two capsules in the morning and one at night. Kidney transplant 09/15/18. ICD code Z94.0 270 capsule 3 ??? senna-docusate (PERICOLACE) 8.6-50 mg Tablet Take 2 tablets by mouth 2 times daily. Take to maintain normal bowel pattern while taking narcotic pain medication. (Patient not taking: Reported on 01/04/2018) ??? polyethylene glycol (MIRALAX) 17 gram Powder in Packet Take 17 g by mouth 2 times daily. Take to maintain normal bowel pattern while taking narcotic pain medication. (Patient not taking: Reportedon 01/04/2018) ??? acetaminophen (TYLENOL) 500 mg Tablet Take 2 tablets by mouth every 8 hours. Take as directed around the clock for ten days after your surgery. After that you can take Tylenol as needed per package insert. ??? glipiZIDE (GLUCOTROL XL) 2.5 mg Tablet Extended Rel 24 hr Take 5 mg by mouth daily. Indications: type 2 diabetes mellitus ??? levothyroxine (SYNTHROID) 137 mcg Tablet Take 137 mcg by mouth daily. ??? potassium phosphate, monobasic, (K-PHOS) 500 mg Tablet, Soluble Take 3 tabs at lunch time and 3tabs at bedtime (Patient taking differently: Take 2 tabs at lunch time and 2 tabs at bedtime) 540 tablet 3 ??? tamsulosin (FLOMAX) 0.4 mg Capsule, Sust. Release 24 hr Take 1 capsule by mouth nightly for 364days. 30 capsule 11 ??? ascorbic acid, vitamin C, (VITAMIN C) 500 mg Tablet Take 1 tablet by mouth 3 times daily. 30 tablet 3 ??? clopidogrel (PLAVIX) 75 mg Tablet Take 75 mg by mouth daily. Social History Socioeconomic History ??? Marital status: Spouse name: Not on file ??? Number of children: Not on file ??? Years of education: Not on file ??? Highest education level: Not on file Social Needs ??? Financial resource strain: Not on file ??? Food insecurity - worry: Not on file ??? Food insecurity - inability: Not on file ??? Transportation needs - medical: Not on file ??? Transportation needs - non-medical: Not on file Occupational History ??? Not on file Tobacco Use ??? Smoking status: Current Some Day Smoker Types: Cigars Last attempt to quit: 01/02/2015 Years since quittin.4 ??? Smokeless tobacco: Never Used ??? Tobacco comment: cigars, one weekly Substance and Sexual Activity ??? Alcohol use: No ??? Drug use: Yes Types: Marijuana Comment: 1-2x a week ??? Sexual activity: Not on file Other Topics Concern ??? Not on file Social History Narrative ??? Not on file PHYSICAL EXAM Current 24 Hours Temp: 36.8 ??C (98.2 ??F) Temp: [36.6 ??C (97.9 ??F)-36.8 ??C (98.2 ??F)] Heart Rate: 53 Heart Rate: [53-59] BP: 160/77 BP: (157-172)/(75-82) Resp: 16 Resp: [16] SpO2: 92 % SpO2: [92 %-98 %] 06/16 0701 - 06/17 0700 In: - Out: 700 [Urine:700] GEN: Resting comfortably in bed, conversant, NAD. HEENT: NCAT. CHEST: CTAB. CV: RRR, normal S1 S2 sounds. ABD: Soft, tenderness to deep palpation in RLQ : Normal circumcised penis. No urethral discharge. Testes descended bilaterally. No scrotal, perineal, or perianal lesions. Minimal left CVA tenderness EXTR: Moving spontaneously. 2+ pulses bilaterally. No edema. SKIN: Warm and dry. NEURO: Alert and follows commands. Recent Labs 06/17/18 0619 06/16/18 2154 06/16/18 1605 WBC 7.6 9.2 7.4 HGB 15.9 15.7 16.5 HCT 45.6 44.8 47.0 PLATELET 274 270 278 Recent Labs 06/17/18 0619 06/16/18 2154 06/16/18 1605 NA 139 139 139 K 3.5 3.4* Not Perf CL 102 101 99 CO2 25 24 28 BUN 14 14 17 CREATININE 1.20 1.12 1.24 GLUCOSE 108 99 93 CALCIUM 8.8 8.9 9.3 MAGNESIUM 0.70 0.61* -- PHOS 2.8 2.9 -- No results for input(s): PT, PTT, INR in the last 168 hours. Recent Labs 06/17/18 0619 06/16/18 2154 06/16/18 1605 BILITOT 2.8* 2.3* 2.0* AST 16 17 Not Perf ALT 17 16 Not Perf ALKPHOS 64 65 64 AMYLASE 29 34 -- LIPASE 25 44 36 IMAGING Right kidney/ureter: Severely atrophic as noted previously.. No RIGHT renal collecting system obstruction ?? Left kidney/ureter: New LEFT hydronephrosis and hydroureter to the level of the mid pelvis where a nonobstructing, 6 x 10 mm oval calculus is lodged in the LEFT ureter. As noted previously there is severe atrophy of the newtok LEFT kidney.. ?? Transplant kidney: Transplant kidney noted in LEFT lower quadrant. Grossly stable in appearance, aside from interval removal of a previously noted percutaneous nephrostomy catheter. Abdominal US 1. Cholelithiasis without evidence of acute cholecystitis. Mobile stone in the neck of the gallbladder. 2. Mild hepatomegaly and hepatosteatosis. No hepatic mass. 3. Atrophic right kidney. 4. Limited assessment of the pancreas secondary to overlying bowel gas. MICRO STUDIES Microbiology Results (Last 30 days) No results found for the last 720 hours. UA with 2 RBC & 1 WBC IMPRESSION 67 y.o. male with history of hepatitis, hypertension, diabetes and donor kidney transplantto the left lower quadrant presents with right lower quadrant abdominal pain. CT scan was notable for an incidental finding of a hydronephrotic left newtok kidney with a 6 x 10 mid to distal ureteralcalculus. There is minimal left CVA tenderness. It is unlikely that the patient's right lower quadrant abdominal pain is related to his left ureteral stone, this would be an atypical presentation. Itis possible that another etiology is causing his right upper quadrant pain. Given that the patient is hemodynamic stable, afebrile, and has a non-concerning UA, there is no acute surgical indication at this time. However, the patient has an obstructed left newtok kidney and is on immunosuppression.Therefore, we would recommend prophylactic antibiotics with plans for stent placement versus definitive stone treatment in the next week. No acute events overnight. Abdominal discomfort stable. No signs of urinary tract infection. Met with transplant surgery team this morning. Discussed risk and benefits of ureteral stent placement today in OR with staged ureteroscopy versus possible single procedure ureteroscopy and laser lithotripsy at [facility] next week. Team feels that ureteral stent placement for left newtok kidney decompression isindicated at this time give immunosuppression and infection risk. RECOMMENDATIONS ?? Agree with IV Cipro for prophylaxis ?? Plan for left ureteral stent in left ureter today - D case ?? Okay for diet from urology perspective afterwards ?? Will plan to outpatient management of stone next week at [facility] if clinically improves Thank you for allowing us to participate in the care of this patient. We will continue to follow. Tal Chen MD, MPH Urology, PGY-2 Consult Pager #[phone] 06/17/2018 * Plan of Care - Ozzy Mccormick RN - 06/17/2018 4:09 AM EST Problem: Patient Care Overview Goal: Plan of Care Review Outcome: Ongoing (Interventions Implemented as Appropriate) 06/17/18402 Coping/Psychosocial Plan Of Care Reviewed With patient Plan of Care Review Progress no change OUTCOME EVALUATION NOTE: OUTCOME SUMMARY: Received Pt from ED. C/O pain to RUQ abdomen pain. AxO 4. RA. Ambulates independently. Voids adequately. STAT labs done. Continue monitor pt. PLAN MOVING FORWARD: Pain control. INDIVIDUALIZED FALL PREVENTION INTERVENTIONS: Patient-specific fall risk factors per assessment: [current deficits]: Pain. Assistance [level of assistance required for transfers and ambulation]: Independent. Supervision [direct monitoring required during toileting and ADLs]: Hands on. Surveillance [continuous indirect monitoring]: Safety rounds check, lights adjusted, call robles within reach. Patient-specific fall prevention interventions for sensory deficits provided, if applicable: [X] N/A CPG GOAL OUTCOME EVALUATION: Ongoing. Goal: Fall Prevention-Safe Patient Handling Outcome: Ongoing (Interventions Implemented as Appropriate) 06/17/18402 Restraint Interventions Safety Promotion/Fall Prevention activity supervised;safety round/check completed Activity Activity Type activity adjusted per tolerance Activity Assistance Provided independent Assistive Device Utilized none Goal: Infection Control Outcome: Ongoing (Interventions Implemented as Appropriate) 06/17/18402 Safety Interventions Isolation Precautions standard precautions maintained Infection Prevention single patient room provided Coping Strategies Supportive Measures active listening utilized Goal: Discharge Needs Assessment Outcome: Ongoing (Interventions Implemented as Appropriate) 06/17/18402 Discharge Needs Assessment Concerns To Be Addressed basic needs concerns Readmission Within The Last 30 Days no previous admission in last 30 days Provider Choice List(s) Given no Discharge Disposition home or self-care Current Health Anticipated Changes Related to Illness none Activity/Self Care Review of Systems Equipment Currently Used at Home none Living Environment Transportation Available car;family or friend will provide Goal: Interdisciplinary Rounds/Family Conf Outcome: Ongoing (Interventions Implemented as Appropriate) 06/17/18 0403 Interdisciplinary Rounds/Family Conf Participants rn case manager hospice;physician;pharmacy * Consult Note - Tal Chen MD - 06/16/2018 6:52 PM EST Images from the original note were not included. UROLOGY INPATIENT CONSULT NOTE CONSULT REQUESTED BY Ari Lucero MD HPI Ethel Akins is a 67 y.o. male with history HCV, DM, HTN who is status post donor kidney transplant (left) in September 2015 that was complicated by a ureteral stricture requiring multiple endoscopic dilations with definitive management with Boari flap repair who presents to the emergencydepartment with abdominal pain. The patient woke up Thursday morning and noted new onset dull right lower quadrant abdominal pain. Pain associated with some nausea and emesis x1. There were no other co-occurring symptoms including fevers, chills, shortness of breath, diarrhea, constipation, or rectal bleeding. When he started to feel rundown his abdominal pain did not improve he presented to the emergency department today for evaluation. Upon presentation, the patient was hemodynamically stable and afebrile. His labs were notable for awhite blood cell count of 7.4, although he is on immunosuppression and creatinine of 1.2 (his baseline). The patient was nontoxic-appearing. He underwent a abdominal ultrasound which showed cholelithi asis without evidence of acute cholecystitis, mild hepatomegaly and a atrophic right kidney. A CT scan was obtained which showed normal left lower quadrant transplant kidney but a 6 x 10 mm obstructing stone in the mid to distal ureter with marketed hydronephrosis of the left newtok kidney. Urology was consulted for obstructing ureteral stone of newtok left kidney in the setting of immunosuppression and transplant kidney. MEDICAL AND SURGICAL HISTORY Past Medical History: Diagnosis Date ??? Back [...] EG ASHWINI FISTULA UPPER EXTREMITY performed by Jennifer Amaro MD at [facility] OR ??? PRO REIMPLANT URETER, SINGLE URETER Left 05/20/2016 @URETERONEOCYSTOSTOMY ANASTOMOSIS OF SINGLE URETER TO BLADDER performed by Santosh Arredondo MD at [facility] OR ??? PRO REIMPLANT URETER, SINGLE URETER N/A 05/20/2016 @URETERONEOCYSTOSTOMY ANASTOMOSIS OF SINGLE URETER TO BLADDER performed by Jennifer Amaro MD at [facility] OR ??? PRO TOTAL KNEE ARTHROPLASTY Right 11/25/2017 TOTAL KNEE ARTHROPLASTY (WRVU 20.72) performed by Breezy Dale MD at [facility] OR ??? PRO TRANSPLANT, PREP CADAVER RENAL GRAFT N/A 09/16/2015 @PREPARATION CADAVERIC RENAL ALLOGRAFT performed by Franko Larkin MD at [facility] OR ??? PRO TRANSPLANTATION OF KIDNEY N/A 09/16/2015 @KIDNEY TRANSPLANT, WITHOUT RECIPIENT NEPHRECTOMY performed by Franko Larkin MD at [facility] OR No current facility-administered medications on file prior to encounter. Current Outpatient Medications on File Prior to Encounter Medication Sig Dispense Refill ??? Magnesium Gluconate 27 mg magnesium (500 mg) Tablet Take 2 tablets by mouth 2 times daily for 90 days. 360 tablet 1 ??? oxyCODONE (ROXICODONE) 5 mg Tablet Take 1 tablet by mouth every 4 hours as needed for Pain. 40 tablet 0 ??? calciTRIol (ROCALTROL) 0.5 mcg Capsule Take 0.5 mcg by mouth daily. ??? oxyCODONE (ROXICODONE) 5 mg Tablet 1 TABLET EVERY 4-6 HOURS PRN 30 tablet 0 ??? mycophenolate (CELLCEPT) 250 mg Capsule Take one capsule twice daily. Kidney transplant 09/16/15. ICD code Z94.0 180 capsule 3 ??? PROGRAF 1 mg Capsule Take two capsules in the morning and one at night. Kidney transplant 09/15/18. ICD code Z94.0 270 capsule 3 ??? senna-docusate (PERICOLACE) 8.6-50 mg Tablet Take 2 tablets by mouth 2 times daily. Take to maintain normal bowel pattern while taking narcotic pain medication. (Patient not taking: Reported on 01/04/2018) ??? polyethylene glycol (MIRALAX) 17 gram Powder in Packet Take 17 g by mouth 2 times daily. Take to maintain normal bowel pattern while taking narcotic pain medication. (Patient not taking: Reportedon 01/04/2018) ??? acetaminophen (TYLENOL) 500 mg Tablet Take 2 tablets by mouth every 8 hours. Take as directed around the clock for ten days after your surgery. After that you can take Tylenol as needed per package insert. ??? glipiZIDE (GLUCOTROL XL) 2.5 mg Tablet Extended Rel 24 hr Take 5 mg by mouth daily. Indications: type 2 diabetes mellitus ??? levothyroxine (SYNTHROID) 137 mcg Tablet Take 137 mcg by mouth daily. ??? potassium phosphate, monobasic, (K-PHOS) 500 mg Tablet, Soluble Take 3 tabs at lunch time and 3tabs at bedtime (Patient taking differently: Take 2 tabs at lunch time and 2 tabs at bedtime) 540 tablet 3 ??? tamsulosin (FLOMAX) 0.4 mg Capsule, Sust. Release 24 hr Take 1 capsule by mouth nightly for 364days. 30 capsule 11 ??? ascorbic acid, vitamin C, (VITAMIN C) 500 mg Tablet Take 1 tablet by mouth 3 times daily. 30 tablet 3 ??? clopidogrel (PLAVIX) 75 mg Tablet Take 75 mg by mouth daily. Social History Socioeconomic History ??? Marital status: Spouse name: Not on file ??? Number of children: Not on file ??? Years of education: Not on file ??? Highest education level: Not on file Social Needs ??? Financial resource strain: Not on file ??? Food insecurity - worry: Not on file ??? Food insecurity - inability: Not on file ??? Transportation needs - medical: Not on file ??? Transportation needs - non-medical: Not on file Occupational History ??? Not on file Tobacco Use ??? Smoking status: Current Some Day Smoker Types: Cigars Last attempt to quit: 01/02/2015 Years since quittin.4 ??? Smokeless tobacco: Never Used ??? Tobacco comment: cigars, one weekly Substance and Sexual Activity ??? Alcohol use: No ??? Drug use: Yes Types: Marijuana Comment: 1-2x a week ??? Sexual activity: Not on file Other Topics Concern ??? Not on file Social History Narrative ??? Not on file He denies fever, chills, and other constitutional symptoms, or dysuria, hematuria, retention, or trouble voiding. Review of head and neck, pulmonary, cardiac, GI, endocrine, MSK, lymphatic, neurological, and psychiatric systems is negative. PHYSICAL EXAM Current 24 Hours Temp: 36.7 ??C (98.1 ??F) Temp: [36.7 ??C (98.1 ??F)] Heart Rate: 53 Heart Rate: [53-59] BP: 157/75 BP: (157-172)/(75-82) Resp: 16 Resp: [16] SpO2: 98 % SpO2: [97 %-98 %] No intake/output data recorded. GEN: Resting comfortably in bed, conversant, NAD. HEENT: NCAT. CHEST: CTAB. CV: RRR, normal S1 S2 sounds. ABD: Soft, tenderness to deep palpation in RLQ : Normal circumcised penis. No urethral discharge. Testes descended bilaterally. No scrotal, perineal, or perianal lesions. Minimal left CVA tenderness EXTR: Moving spontaneously. 2+ pulses bilaterally. No edema. SKIN: Warm and dry. NEURO: Alert and follows commands. Recent Labs 06/16/18 1605 WBC 7.4 HGB 16.5 HCT 47.0 PLATELET 278 Recent Labs 06/16/18 1605 NA 139 K Not Perf CL 99 CO2 28 BUN 17 CREATININE 1.24 GLUCOSE 93 CALCIUM 9.3 No results for input(s): PT, PTT, INR in the last 168 hours. Recent Labs 06/16/18 1605 BILITOT 2.0* AST Not Perf ALT Not Perf ALKPHOS 64 LIPASE 36 IMAGING Right kidney/ureter: Severely atrophic as noted previously.. No RIGHT renal collecting system obstruction ?? Left kidney/ureter: New LEFT hydronephrosis and hydroureter to the level of the mid pelvis where a nonobstructing, 6 x 10 mm oval calculus is lodged in the LEFT ureter. As noted previously there is severe atrophy of the newtok LEFT kidney.. ?? Transplant kidney: Transplant kidney noted in LEFT lower quadrant. Grossly stable in appearance, aside from interval removal of a previously noted percutaneous nephrostomy catheter. Abdominal US 1. Cholelithiasis without evidence of acute cholecystitis. Mobile stone in the neck of the gallbladder. 2. Mild hepatomegaly and hepatosteatosis. No hepatic mass. 3. Atrophic right kidney. 4. Limited assessment of the pancreas secondary to overlying bowel gas. MICRO STUDIES Microbiology Results (Last 30 days) No results found for the last 720 hours. UA with 2 RBC & 1 WBC IMPRESSION 67 y.o. male with history of hepatitis, hypertension, diabetes and donor kidney transplantto the left lower quadrant presents with right lower quadrant abdominal pain. CT scan was notable for an incidental finding of a hydronephrotic left newtok kidney with a 6 x 10 mid to distal ureteralcalculus. There is minimal left CVA tenderness. It is unlikely that the patient's right lower quadrant abdominal pain is related to his left ureteral stone, this would be an atypical presentation. Itis possible that another etiology is causing his right upper quadrant pain. Given that the patient is hemodynamic stable, afebrile, and has a non-concerning UA, there is no acute surgical indication at this time. However, the patient has an obstructed left newtok kidney and is on immunosuppression.Therefore, we would recommend prophylactic antibiotics with plans for stent placement versus definitive stone treatment in the next week. RECOMMENDATIONS ?? Agree with admission to transplant surgery and plan for hydration and serial abdominal exams ?? Start prophylactic Bactrim. If urinalysis or urine cultures are concerning for urinary tract infection please start broad-spectrum IV antibiotics and contact urology team as patient may require more urgent ureteral stent placement. ?? NPO overnight for possible intervention tomorrow versus as outpatient in 1 week ?? Case discussed with Dr. Whitney Thank you for allowing us to participate in the care of this patient. We will continue to follow. Tal Chen MD, MPH Urology, PGY-2 Consult Pager #[phone] 06/16/2018 Associated attestation - Fermin Whitney MD - 06/18/2018 7:33 AM EST I have seen the patient and reviewed the resident's above history and I agree with the details as written. The assessment and plan were formulated in discussion with me and I agree with them as documented. In discussion with Dr. Amaro, it sounds like his left newtok ureter was ligated during repair ofhis necrotic transplant ureter. I spoke with Dr. Arredondo, who did his repair, and he not entirely sure the ureter was ligated as there was significant scarring in the area. After review with the transplant team we agreed that an RPG to evaluate +/- ureteral stent if the ureter is patent is reasonable. documented in this encounter Plan of Treatment Upcoming Encounters Date Type Department Care Team (Late st Contact Info) Description 04/15/2024 10:00 AM EDT Hospital Encounter [place] [address] Arrived documented as of this encounter Goals Goal Patient Goal Type Associated Problems Recent Progress Patient-Stated? Author DH Home Medication Compliance and Understanding Patient Facing Action Plan On track( 017 10:41 AM EDT) No Selena Cisneros, [facility] Note: Patient Goal: Clear hepatitis C Timeframe to meet goal: within 12 weeks of therapy documented as of this encounter Procedures Procedure Name Priority Date/Time Associated Diagnosis Comments HEPATITIS C RNA, QUANTITATIVE, PCR Routine 06/18/2018 11:07 AM EST US SCROTUM Routine 06/18/2018 8:45 AM EST HEMOGRAM Routine 06/18/2018 5:53 AM EST DIFFERENTIAL, AUTOMATED Routine 06/18/20 18 5:53 AM EST CBC (WITH DIFF) Routine 06/18/2018 5:53 AM EST PHOSPHORUS Routine 06/18/2018 5:53 AM EST MAGNESIUM Routine 06/18/2018 5:53 AM EST COMPREHENSIVE METABOLIC PANEL Routine 06/18/2018 5:53 AM EST XR FLUORO NO RAD <1HR - OR USE Routine 06/17/2018 4:05 PM EST CYSTO,RETROGRADE,URETEROPY ELOGRAPHY Routine 06/17/2018 3:57 PM EST CYSTO, RETROGRADE, URETEROPYELOGRAPHY (WRVU 2.37) 06/17/2018 3:18 PM EST Hydronephrosis ABORH RECHECK STATUS Routine 06/17/2018 1:51 PM EST ABO/RH TYPING Routine 06/17/2018 1:51 PM EST ANTIBODY SCREEN Routine 06/17/2018 1:51 PM EST TYPE AND SCREEN ([facility]/CGP/MOSES) Routine 06/17/2018 1:51 PM EST TACROLIMUS LEVEL Timed 06/17/2018 8:50 AM EST HEMOGRAM STAT 06/17/2018 6:19 AM EST PHOSPHORUS STAT 06/17/2018 6:19 AM EST MAGNESIUM STAT 06/17/2018 6:19 AM EST LIPASE Routine 06/17/2018 6:19 AM EST AMYLASE STAT 06/17/2018 6:19 AM EST COMPREHENSIVE METABOLIC PANEL STAT 06/17/2018 6:19 AM EST HEMOGRAM Routine 06/16/2018 9:54 PM EST PHOSPHORUS STAT 06/16/2018 9:54 PM EST MAGNESIUM STAT 06/16/2018 9:54 PM EST LIPASE STAT 06/16/2018 9:54 PM EST AMYLASE STAT 06/16/2018 9:54 PM EST COMPREHENSIVE METABOLIC PANEL STAT 06/16/2018 9:54 PM EST BLOOD CULTURE STAT 06/16/2018 6:51 PM EST BLOOD CULTURE STAT 06/16/2018 6:35 PM EST URINALYSIS MICROSCOPIC EXAM STAT 06/16/2018 6:33 PM EST URINE HOLD STAT 06/16/2018 6:33 PM EST URINALYSIS WITH REFLEX CULTURE STAT 06/16/2018 6:33 PM EST URINE CULTURE STAT 06/16/2018 6:[address] ABDOMEN AND PELVIS WO CONTRAST STAT 06/16/2018 4:54 PM EST US ABDOMEN LIMITED STAT 06/16/2018 4: 40 PM EST HEMOGRAM STAT 06/16/2018 4:05 PM EST DIFFERENTIAL, AUTOMATED STAT 06/16/20 18 4:05 PM EST GOLD TUBE HOLD STAT 06/16/2018 4:05 PM EST BLUE TUBE HOLD STAT 06/16/2018 4:05 PM EST CBC (WITH DIFF) STAT 06/16/2018 4:05 PM EST LIPASE STAT 06/16/2018 4:05 PM EST COMPREHENSIVE METABOLIC PANEL STAT 06/16/2018 4:05 PM EST documented in this encounter Results * Hepatitis C RNA, quantitative, PCR (06/18/2018 11:07 AM EST) HCV Viral Load <12 IU/mL [facility] HCV Viral Load Result: <12 IU/mL (Target Not Detected) Indication for Study: Hepatitis C Infection Analysis: The [employer] RealTime HCV assay is an in vitro reverse hard rock drill operator polymerase chain reaction (RT-PCR)for the quantitation of hepatitis C viral (HCV) RNA in human serum or plasma (EDTA) from HCV-infected individuals. Sample: plasma (0.7 mL minimum volume) Method: [employer] RealTime HCV Assay Linear Range: 12 IU/mL - 100,000,000IU/mL Note: The [employer] RealTime HCV Assay has been approved by the U.S. Food and Drug Administration. [facility] Comment: [VERIFIED DATE]06.23.18 Verified By:Nella Evans (Electronic Signature) Blood specimen (specimen) 06/18/2018 11:07 AM EST 06/21/2018 11:26 AM EST Narrative Resulting Agency Comment Spec In Lab Jennifer JENNINGS [facility] [place] [id number] * US Scrotum (06/18/2018 8:45 AM EST) Anatomical Region Laterality Modality Pelvis Ultrasound 06/18/2018 8:42 AM EST Impressions 06/18/2018 9:31 AM EST Testicular - Summary 1. The testicles are homogenous and normal in size, without mass, atrophy, or abnormal blood flow. 2. Small epididymal cysts bilaterally. 3. Trace left hydrocele. 4. LEFT varicocele. ? Valencia Zepeda MD Electronically Signed Final Report ?? 06/18/2018 09:31 am Narrative 06/18/2018 9:31 AM EST Scrotal ? (Signed Final 06/18/2018 09:31 am) PATIENT INFO: ID #: ? [id number] ?: ??[birth year] (67 yrs) Name: ? ETHEL Patricia AKINS ?Visit Date: 06/18/2018 08:42 am PERFORMED BY: Performed By: ? Osmar Dowd RDMS Attending: ?Kristen GERBER, Valencia Almonte Resident: ? Patricia Malik DO Referred By: ?JENNIFER AMARO Location: ? [place] SERVICE(S) PROVIDED: ??[facility] - Scrotum and Contents with Limited Vascular ?[id number], [id number] ??evaluation - [id number] INDICATIONS: ??RLQ and scrotal pain RIGHT TESTICLE: Measurement(cm) ? L: ??4.9 ?AP: ?? 3.5 ? TV: ??2.8 Vol (ml): ?25.1 Vascularity: ?Normal color Doppler vascularity Comment: ?Scrotal kaycee RIGHT EPIDIDYMIS: Head: ?Corrugated Body: ?Corrugated Tail: ?Corrugated, sperm granulomas Vascularity: ?? Normal RIGHT OTHER: Hydrocele: ? No hydrocele seen Varicocele: ?Not visualized LEFT TESTICLE: Measurement(cm) ? L: ??4.8 ?AP: ?? 3.2 ? TV: ??2.7 Vol (ml): ?21.7 Vascularity: ?Normal color Doppler vascularity LEFT EPIDIDYMIS: Head: ?Epididymal cysts, largest measuring ??1.1 cm. ?Corrugated Body: ?Corrugated Tail: ?Corrugated Vascularity: ?? Normal LEFT OTHER: Hydrocele: ? Trace hydrocele seen Varicocele: ?Visualized Procedure Note Valencia Juarez MD - 06/18/2018 Scrotal (Signed Final 06/18/2018 09:31 am) PATIENT INFO: ID #: [id number] : 48 (67 yrs) Name: ETHEL AKINS Visit Date: 06/18/2018 08:42 am PERFORMED BY: Performed By: Osmar Dowd RDMS Attending: Valencia Carson MD Resident: Patricia Malik DO Referred By: JENNIFER AMARO Location: [place] SERVICE(S) PROVIDED: [facility] - Scrotum and Contents with Limited Vascular 95060, [id number] evaluation - [id number] INDICATIONS: RLQ and scrotal pain RIGHT TESTICLE: Measurement(cm) L: 4.9 AP: 3.5 TV: 2.8 Vol (ml): 25.1 Vascularity: Normal color Doppler vascularity Comment: Scrotal kaycee RIGHT EPIDIDYMIS: Head: Corrugated Body: Corrugated Tail: Corrugated, sperm granulomas Vascularity: Normal RIGHT OTHER: Hydrocele: No hydrocele seen Varicocele: Not visualized LEFT TESTICLE: Measurement(cm) L: 4.8 AP: 3.2 TV: 2.7 Vol (ml): 21.7 Vascularity: Normal color Doppler vascularity LEFT EPIDIDYMIS: Head: Epididymal cysts, largest measuring 1.1 cm. Corrugated Body: Corrugated Tail: Corrugated Vascularity: Normal LEFT OTHER: Hydrocele: Trace hydrocele seen Varicocele: Visualized IMPRESSION Testicular - Summary 1. The testicles are homogenous and normal in size, without mass, atrophy, or abnormal blood flow. 2. Small epididymal cysts bilaterally. 3. Trace left hydrocele. 4. LEFT varicocele. Valencia Zepeda MD Electronically Signed Final Report 06/18/2018 09:31 am Jennifer Amaro MD [facility] US GEN ORD ERABLES * Differential, Automated (06/18/2018 5:53 AM EST) Neutrophil % 61.9 % [facility] Neutrophil Absolute 4.45 1.70 - 6.10 x10(3)/[facility] Lymph % 23.8 % [facility] Lymphocytes Abs 1.7 0.9 - 3.2 x10(3)/[facility] Monocyte % 8.4 % [facility] Monocyte Abs 0.6 0.3 - 0.9 x10(3)/[facility] Eos % 4.5 % [facility] Eosinophils Abs 0.3 0.0 - 0.4 x10(3)/[facility] Basophil % 1.0 % [facility] Baso Absolute 0.1 0.0 - 0.1 x10(3)/[facility] Immature Gran % 0.40 % [facility] Comment: Immature granulocytes(IG's)percentage and absolute count will include metamyelocytes, myelocytes, and promyelocytes. Blood smears from CBCs yielding IG's will be scanned manually for concordance. If this scan disagrees with the automated IG or if promyelocytes are noted, a manual differential will be performed. Immature Gran Absolute 0.03 0.00 - 0.04 x10(3)/[facility] Blood specimen (specimen) 06/18/2018 5:53 AM EST 06/18/2018 6:13 AM EST Narrative Resulting Agency Comment Spec In Lab Jennifer Palmer MD HEMATOLOGY OR DERABLES [facility] [place] [address] * Hemogram (06/18/2018 5:53 AM EST) White Blood Cell 7.2 4.0 - 9.5 x10(3)/[facility] Red Blood Cell 5.13 4.58 - 5.54 x10(6)/[facility] Hemoglobin 15.6 13.7 - 16.5 gm/dL [facility] Hematocrit 45.5 40.5 - 48.5 % [facility] Mean Cell Volume 88.7 82.9 - 93.1 [facility] Mean Cell Hemoglobin 30.4 27.5 - 32.1 pg [facility] Mean Cell Hemoglobin Concentration 34.3 32.0 - 35.7 gm/dL [facility] Platelet 259 145 - 357 x10(3)/[facility] RDW Standard Deviation 42.3 36.0 - 45.0 [facility] RDW coefficient of variation 13.0 11.4 - 13.8 % [facility] Mean Platelet Volume 9.8 7.6 - 12.9 [facility] LABORATORY NRBC% auto 0.0 % [facility] LABORATORY NRBC Absolute 0.000 0.000 - 0.000 x10(3)/[facility] LABORATORY Blood specimen (specimen) 06/18/2018 5:53 AM EST 06/18/2018 6:13 AM EST Narrative Resulting Agency Comment Spec In Lab Jennifer Palmer MD HEMATOLOGY OR DERABLES [facility] [place] [address] * Phosphorus (06/18/2018 5:53 AM EST) Phosphorus 3.3 2.5 - 4.5 mg/dL [facility] Blood specimen (specimen) 06/18/2018 5:53 AM EST 06/18/2018 6:13 AM EST Narrative Resulting Agency Comment Spec In Lab Jennifer Amaro MD CHEMISTRY ORDTiny JENNINGS Performing Organization Address City/[facility]/ZIP Co de Phone Number [facility] [place] [address] * Magnesium (06/18/2018 5:53 AM EST) Pathologist [facility] Magnesium 0.72 0.69 - 1.07 mmol/L [facility] Blood specimen (specimen) 06/18/2018 5:53 AM EST 06/18/2018 6:13 AM EST Narrative Resulting Agency Comment Spec In Lab Jennifer Amaro MD CHEMISTRY ORDE DICK Performing Organization Address [facility] de Phone Number [facility] [place] [address] * (ABNORMAL) Comprehensive metabolic panel (non-fasting) (06/18/2018 5:53 AM EST) [facility] Glucose 113 65 - 199 mg/dL [facility] Comment:Diabetes: >=200 mg/d L plus symptoms Blood Urea Nitrogen 18 10 - 20 mg/dL [facility] Creatinine 1.34 0.80 - 1.50 mg/dL [facility] Sodium 139 135 - 145 mmol/L [facility] questions. Chloride 102 98 - 107 mmol/L [facility] Carbon Dioxide 25 22 - 31 mmol/L [facility] Anion Gap 12 5 - 15 mmol/L [facility] Calcium 8.8 8.5 - 10.5 mg/dL [facility] Protein, Total 6.4 6.1 - 8.0 gm/dL [facility] Albumin 3.5 3.2 - 5.2 gm/dL [facility] Aspartate Aminotransferase 14 0 - 39 unit/L [facility] Alanine Aminotransferase 14 0 - 55 unit/L [facility] Alkaline Phosphatase 61 40 - 120 unit/L [facility] Bilirubin, Total 2.7(H) 0.2 - 1.3 mg/dL [facility] Est Glomerular Filtration Rate 54(L) >=60 mL/min/1. 73 m?? [facility] LABORATORY Comment: The eGFR was calculated using the CKD-EPI equation. As with all creatinine based estimates of kidney function, eGFR values calculated with the CKD-EPI equation are not accurate in patients with acute kidney failure, extremes of body mass or the acutely ill. [email or web address] eGFR 62 >=60 mL/min/1. 73 m?? [facility]AT[facility] Comment: The eGFR was calculated using the CKD-EPI equation. As with all creatinine based estimates of kidney function, eGFR values calculated with the CKD-EPI equation are not accurate in patients with acute kidney failure, extremes of body mass or the acutely ill. [email or web address] Blood specimen (specimen) 06/18/2018 5:53 AM EST 06/18/2018 6:13 AM EST Narrative Resulting Agency Comment Spec In Lab Jennifer Amaro MD CHEMISTRY ROCHELLE JENNINGS Performing Organization Address City/[facility]/ZIP Co de Phone Number [facility] [place] [address] * XR Fluoro No Rad <1Hr - OR Use (06/17/2018 4:05 PM EST) Narrative RAD - 06/17/2018 4:05 PM EST This order does not need a radiologist interpretation. ?? Jennifer Amaro MD IMG FLUORO ORD ERABLES Performing Organization Address City/[facility]/ZIP Co de Phone Number [place], [place] * ABORH Recheck Status (06/17/2018 1:51 PM EST) ABORH Type Recheck Completed [facility]OR[facility] Blood specimen (specimen) 06/17/2018 1:51 PM EST 06/17/2018 3:10 PM EST Narrative Resulting Agency Comment Spec In Lab Jennifer Amaro MD BLOOD BANK LAB ORDERABLES Performing Organization Address City/[facility]/ZIP Co de Phone Number [facility] [place] [address] * Antibody screen (06/17/2018 1:51 PM EST) Ab Screen Interp Negative [facility] Expires at [id number] on: 06/20/2018 [facility] Blood specimen (specimen) 06/17/2018 1:51 PM EST 06/17/2018 3:10 PM EST Narrative Resulting Agency Comment Spec In Lab Jennifer Amaro MD BLOOD BANK LAB ORDERABLES Performing Organization Address City/[facility]/ZIP Co de Phone Number [facility] [place] [address] * ABO/Rh Typing (06/17/2018 1:51 PM EST) ABORH Type AB Pos [facility] Blood specimen (specimen) 06/17/2018 1:51 PM EST 06/17/2018 3:10 PM EST Narrative Resulting Agency Comment Spec In Lab Jennifer Amaro MD BLOOD BANK LAB ORDERABLES Performing Organization Address City/[facility]/ZIP Co de Phone Number [facility] [place] [address] * Tacrolimus level (06/17/2018 8:50 AM EST) Tacrolimus 5.2 ng/mL [facility] Comment: Trough therapeutic: ??5-15 ng/mL Performed by ultra-performance liquid chromatography tandem mass spectrometry (UPLCMS/MS). This test was developed and its performance characteristics determined by [facility]. It has not been cleared or approved by the FDA. The laboratory is regulated under CLIA as qualified to perform high-complexity testing. This test is used for clinical purposes. It should not be regarded as investigational or for research. Blood specimen (specimen) 06/17/2018 8:50 AM EST 06/17/2018 10:53 AM EST Narrative Resulting Agency Comment Spec In Lab Ari Lucero MD CHEMISTRY ORDERABLES Performing Organization Address City/[facility]/ZIP Co de Phone Number [facility] [place] [address] * Lipase (06/17/2018 6:19 AM EST) Lipase 25 0 - 60 unit/L [facility] Blood specimen (specimen) 06/17/2018 6:19 AM EST 06/17/2018 6:40 AM EST Narrative Resulting Agency Comment Spec In Lab Jennifer Amaro MD CHEMISTRY ORDE RABLES Performing Organization Address [facility] Co de Phone Number [facility] [place] [address] * Amylase (06/17/2018 6:19 AM EST) Amylase 29 28 - 100 unit/L [facility] Blood specimen (specimen) 06/17/2018 6:19 AM EST 06/17/2018 6:39 AM EST Narrative Resulting Agency Comment Spec In Lab Jennifer Amaro MD CHEMISTRY ORDE RABLES Performing Organization Address City/[facility]/ZIP Co de Phone Number [facility] [place] [address] * Phosphorus (06/17/2018 6:19 AM EST) Phosphorus 2.8 2.5 - 4.5 mg/dL [facility] Blood specimen (specimen) 06/17/2018 6:19 AM EST 06/17/2018 6:39 AM EST Narrative Resulting Agency Comment Spec In Lab Jennifer Amaro MD CHEMISTRY ORDTiny JENNINGS Performing Organization Address [facility] Co de Phone Number [facility] [place] [address] * Magnesium (06/17/2018 6:19 AM EST) Pathologist [facility] Magnesium 0.70 0.69 - 1.07 mmol/L [facility] Blood specimen (specimen) 06/17/2018 6:19 AM EST 06/17/2018 6:39 AM EST Narrative Resulting Agency Comment Spec In Lab Jennifer Amaro MD CHEMISTRY ORDE DICK Performing Organization Address [facility] de Phone Number [facility] [place] [address] * (ABNORMAL) Comprehensive metabolic panel (non-fasting) (06/17/2018 6:19 AM EST) Pathologist [facility] Glucose 108 65 - 199 mg/dL [facility] Comment:Diabetes: >=200 mg/d L plus symptoms Blood Urea Nitrogen 14 10 - 20 mg/dL [facility] Creatinine 1.20 0.80 - 1.50 mg/dL [facility] Sodium 139 135 - 145 mmol/L [facility] Potassium 3.5 3.5 - 5.0 mmol/L [facility] Comment: Please note: ??Patients with WBC >100,000 may have falsely elevated Potassium levels. ??For accurate Potassium quantification in these patients send serum separator tube (gold top) for subsequent determinations. ??Contact the Clinical Chemistry Laboratory if there are any questions. Chloride 102 98 - 107 mmol/L [facility] Carbon Dioxide 25 22 - 31 mmol/L [facility] Anion Gap 12 5 - 15 mmol/L [facility] Calcium 8.8 8.5 - 10.5 mg/dL [facility] Protein, Total 6.5 6.1 - 8.0 gm/dL [facility] Albumin 3.4 3.2 - 5.2 gm/dL [facility] Aspartate Aminotransferase 16 0 - 39 unit/L [facility] Alanine Aminotransferase 17 0 - 55 unit/L [facility] Alkaline Phosphatase 64 40 - 120 unit/L [facility] Bilirubin, Total 2.8(H) 0.2 - 1.3 mg/dL [facility] Est Glomerular Filtration Rate 61 >=60 mL/min/1. 73 m?? [facility] Comment: The eGFR was calculated using the CKD-EPI equation. As with all creatinine based estimates of kidney function, eGFR values calculated with the CKD-EPI equation are not accurate in patients with acute kidney failure, extremes of body mass or the acutely ill. [email or web address]/[email or web address] eGFR 71 >=60 mL/min/1. 73 m?? [facility] Comment: The eGFR was calculated using the CKD-EPI equation. As with all creatinine based estimates of kidney function, eGFR values calculated with the CKD-EPI equation are not accurate in patients with acute kidney failure, extremes of body mass or the acutely ill. [email or web address] Blood specimen (specimen) 06/17/2018 6:19 AM EST 06/17/2018 6:39 AM EST Narrative Resulting Agency Comment Spec In Lab Jennifer Amaro MD CHEMISTRY ROCHELLE JENNINGS [facility] [place] [address] * Hemogram (06/17/2018 6:19 AM EST) White Blood Cell 7.6 4.0 - 9.5 x10(3)/[facility] LABORATORY Red Blood Cell 5.13 4.58 - 5.54 x10(6)/[facility] LABORATORY Hemoglobin 15.9 13.7 - 16.5 gm/dL [facility] Hematocrit 45.6 40.5 - 48.5 % [facility] Mean Cell Volume 88.9 82.9 - 93.1 [facility] LABORATORY Mean Cell Hemoglobin 31.0 27.5 - 32.1 pg [facility]ORAT[facility] Mean Cell Hemoglobin Concentration 34.9 32.0 - 35.7 gm/dL [facility]OR[facility] Platelet 274 145 - 357 x10(3)/[facility] LABORATORY RDW Standard Deviation 42.4 36.0 - 45.0 [facility] LABORATORY RDW coefficient of variation 13.0 11.4 - 13.8 % [facility] LABORATORY Mean Platelet Volume 9.8 7.6 - 12.9 [facility] LABORATORY NRBC% auto 0.0 % [facility] LABORAT[facility] NRBC Absolute 0.000 0.000 - 0.000 x10(3)/[facility] LABORATORY Blood specimen (specimen) 06/17/2018 6:19 AM EST 06/17/2018 6:40 AM EST Narrative Resulting Agency Comment Spec In Lab Jennifer Amaro MD HEMATOLOGY ORD ERABLES Performing Organization Address City/[facility]/ZIP Co de Phone Number [facility] [place] [address] * Lipase (06/16/2018 9:54 PM EST) Lipase 44 0 - 60 unit/L [facility] Blood specimen (specimen) 06/16/2018 9:54 PM EST 06/16/2018 10:03 PM EST Narrative Resulting Agency Comment Spec In Lab Ari Lucero MD CHEMISTRY ORDERABLES Performing Organization Address City/[facility]/ZIP Co de Phone Number [facility] [place] [address] * Phosphorus (06/16/2018 9:54 PM EST) Phosphorus 2.9 2.5 - 4.5 mg/dL [facility] Blood specimen (specimen) 06/16/2018 9:54 PM EST 06/16/2018 10:03 PM EST Narrative Resulting Agency Comment Spec In Lab Ari Lucero MD CHEMISTRY ORDERABLES Performing Organization Address City/[facility]/ZIP Co de Phone Number [facility] [place] [address] * (ABNORMAL) Magnesium (06/16/2018 9:54 PM EST) Magnesium 0.61(L) 0.69 - 1.07 mmol/L [facility] Blood specimen (specimen) 06/16/2018 9:54 PM EST 06/16/2018 10:03 PM EST Narrative Resulting Agency Comment Spec In Lab Ari Lucero MD CHEMISTRY ORDERABLES Performing Organization Address [facility] Co de Phone Number [facility] [place] [address] * Amylase (06/16/2018 9:54 PM EST) Amylase 34 28 - 100 unit/L [facility] Blood specimen (specimen) 06/16/2018 9:54 PM EST 06/16/2018 10:03 PM EST Narrative Resulting Agency Comment Spec In Lab Ari Lucero MD CHEMISTRY ORDERABLES Performing Organization Address [facility] Co de Phone Number [facility] [place] [address] * Hemogram (06/16/2018 9:54 PM EST) White Blood Cell 9.2 4.0 - 9.5 x10(3)/[facility] LABORATORY Red Blood Cell 5.25 4.58 - 5.54 x10(6)/[facility] LABORATORY Hemoglobin 15.7 13.7 - 16.5 gm/dL [facility] Hematocrit 44.8 40.5 - 48.5 % [facility] Mean Cell Volume 85.3 82.9 - 93.1 fL [facility] Mean Cell Hemoglobin 29.9 27.5 - 32.1 pg [facility] Mean Cell Hemoglobin Concentration 35.0 32.0 - 35.7 gm/dL [facility] Platelet 270 145 - 357 x10(3)/[facility] LABORATORY RDW Standard Deviation 39.4 36.0 - 45.0 [facility] LABORATORY RDW coefficient of variation 12.9 11.4 - 13.8 % [facility] Mean Platelet Volume 9.5 7.6 - 12.9 fL [facility] NRBC% auto 0.0 % [facility] NRBC Absolute 0.000 0.000 - 0.000 x10(3)/[facility] LABORATORY Blood specimen (specimen) 06/16/2018 9:54 PM EST 06/16/2018 10:03 PM EST Narrative Resulting Agency Comment Spec In Lab Ari Lucero MD HEMATOLOGY ORDERABLE S [facility] [place] [address] * (ABNORMAL) Comprehensive metabolic panel (non-fasting) (06/16/2018 9:54 PM EST) Glucose 99 65 - 199 mg/dL [facility] Comment:Diabetes: >=200 mg/d L plus symptoms Blood Urea Nitrogen 14 10 - 20 mg/dL [facility] Creatinine 1.12 0.80 - 1.50 mg/dL [facility] Sodium 139 135 - 145 mmol/L [facility] Potassium 3.4(L) 3.5 - 5.0 mmol/L [facility] Comment: Please note: ??Patients with WBC >100,000 may have falsely elevated Potassium levels. ??For accurate Potassium quantification in these patients send serum separator tube (gold top) for subsequent determinations. ??Contact the Clinical Chemistry Laboratory if there are any questions. Chloride 101 98 - 107 mmol/L [facility] Carbon Dioxide 24 22 - 31 mmol/L [facility] Anion Gap 14 5 - 15 mmol/L [facility] Calcium 8.9 8.5 - 10.5 mg/dL [facility] Protein, Total 6.8 6.1 - 8.0 gm/dL [facility] Albumin 3.6 3.2 - 5.2 gm/dL [facility] Aspartate Aminotransferase 17 0 - 39 unit/L [facility] Alanine Aminotransferase 16 0 - 55 unit/L [facility] Alkaline Phosphatase 65 40 - 120 unit/L [facility] Bilirubin, Total 2.3(H) 0.2 - 1.3 mg/dL [facility] Est Glomerular Filtration Rate 67 >=60 mL/min/1. 73 m?? [facility] Comment: The eGFR was calculated using the CKD-EPI equation. As with all creatinine based estimates of kidney function, eGFR values calculated with the CKD-EPI equation are not accurate in patients with acute kidney failure, extremes of body mass or the acutely ill. http://[employer]/[email or web address] eGFR 77 >=60 mL/min/1. 73 m?? [facility] Comment: The eGFR was calculated using the CKD-EPI equation. As with all creatinine based estimates of kidney function, eGFR values calculated with the CKD-EPI equation are not accurate in patients with acute kidney failure, extremes of body mass or the acutely ill. [email or web address] Blood specimen (specimen) 06/16/2018 9:54 PM EST 06/16/2018 10:03 PM EST Narrative Resulting Agency Comment Spec In Lab Ari Lucero MD CHEMISTRY ORDERABLES [facility] [place] [address] * Blood culture (06/16/2018 6:51 PM EST) Blood Culture No growth at 5 days. [facility] Blood specimen (specimen) 06/16/2018 6:51 PM EST 06/16/2018 7:55 PM EST Comment:RH Narrative Resulting Agency Comment Spec In Lab Ari Lucero MD MICROBIOLOGY - BLOOD ORDERABLES Performing Organization Address City/[facility]/ZIP Co de Phone Number [facility] [place] [address] * Blood culture (06/16/2018 6:35 PM EST) Blood Culture No growth at 5 days. [facility] Blood specimen (specimen) 06/16/2018 6:35 PM EST 06/16/2018 7:50 PM EST Comment:RAC Narrative Resulting Agency Comment Spec In Lab Ari Lucero MD MICROBIOLOGY - BLOOD ORDERABLES Performing Organization Address [facility]/ZIP Co de Phone Number [facility] [place] [address] * Urinalysis Microscopic Exam (06/16/2018 6:33 PM EST) RBC, Urine 2 0 - 3 /HPF [facility] WBC, Urine <1 0 - 3 /HPF [facility] Urine specimen obtained by clean catch procedure (specimen) 06/16/2018 6:33 PM EST 06/16/2018 7:10 PM EST Narrative Resulting Agency Comment Spec In Lab Giovanna Arriola MD URINE ORDERABLES Performing Organization Address City/[facility]/ZIP Co de Phone Number [facility] [place] [address] * Urine Hold (06/16/2018 6:33 PM EST) Hold, Urine Sample in lab. [facility] Urine specimen (specimen) Urine / Unknown 06/16/2018 6:33 PM EST 06/16/2018 7:11 PM EST Giovanna Arriola MD URINE ORDERABLES [facility] [place] [address] * (ABNORMAL) Urine culture Clean Catch Urine (06/16/2018 6:33 PM EST) Urine Culture 1,000-9,000 cfu/ml Gram Positive organisms , probable contaminant(A ) [facility] Urine specimen obtained by clean catch procedure (specimen) 06/16/2018 6:33 PM EST 06/16/2018 7:48 PM EST Narrative Resulting Agency Comment Spec In Lab Ari Lucero MD MICROBIOLOGY - GENER AL ORDERABLES Performing Organization Address City/[facility]/ZIP Co de Phone Number [facility] [place] [address] * (ABNORMAL) Urinalysis with reflex Culture (06/16/2018 6:33 PM EST) Glucose, Urine Dipstick Negative Negative mg/dL [facility] Protein, Urine Dipstick 30(A) Negative mg/dL [facility] [...] [facility] pH, Urn (dipstick) 7.0 5.0 - 8.0 [facility] Blood, Urine Dipstick Negative Negative mg/dL [facility] Ketone, Urine Dipstick Negative Negative mg/dL [facility] Nitrite, Urine Dipstick Negative Negative [facility] Leukocytes, Urine Dipstick Negative Negative [facility] LABORATORY Appearance, Urine Dipstick Clear Clear [facility] Specific [place] Urine Automated 1.010 1.002 - 1.030 [facility] Color, Urine Dipstick Straw Yellow [facility] Reflex to Culture No [facility] Urine specimen obtained by clean catch procedure (specimen) 06/16/2018 6:33 PM EST 06/16/2018 7:10 PM EST Narrative Resulting Agency Comment Spec In Lab Ari Lucero MD URINE ORDERABLES [facility] [place] [address] * CT Abdomen & Pelvis wo Contrast (06/16/2018 4:54 PM EST) Anatomical Region Laterality Modality Abdomen, Pelvis Computed Tomogra phy Impressions 06/16/2018 5:03 PM EST New LEFT hydronephrosis and hydroureter secondary to a 6 x 10 oval obstructing calculus in the mid LEFT ureter. Narrative 06/16/2018 5:03 PM EST EXAMINATION: CT ABDOMEN AND PELVIS WO CONTRAST CLINICAL HISTORY: ? kidney stones/ RLQ pain radiating to groin TECHNIQUE: Helical CT of the abdomen and pelvis was performed without the use of intravenous contrast. ??Multiplanar reformatted images were generated. COMPARISON: 12/30/2015 FINDINGS: The absence of intravenous contrast limits the evaluation of solid viscera and vasculature. Right kidney/ureter: Severely atrophic as noted previously.. ??No RIGHT renal collecting system obstruction Left kidney/ureter: New LEFT hydronephrosis and hydroureter to the level of the mid pelvis where a nonobstructing, 6 x 10 mm oval calculus is lodged in the LEFT ureter. As noted previously there is severe atrophy of the [place] LEFT kidney.. Transplant kidney: Transplant kidney noted in LEFT lower quadrant. Grossly stable in appearance, aside from interval removal of a previously noted percutaneous nephrostomy catheter. Urinary Bladder: Limited. Decompressed. No intravesicular calculi. Lower chest: Normal. Liver: Normal. Bile ducts: Nondilated. Gallbladder: There is layering gallbladder sludge Pancreas: Normal attenuation without ductal dilatation. Spleen: Normal. Adrenals: Normal. Vasculature: No aneurysm. Lymph Nodes: No enlarged lymph nodes. Bowel: Nondilated, no wall thickening. Scattered colonic diverticula. No diverticulitis. Peritoneum and mesentery: No ascites, free air, or loculated fluid collection. No mesenteric inflammation. Abdominal wall: Normal. Reproductive organs: Normal. Osseous structures: No suspicious lesions. Procedure Note Tal Grimes MD - 06/16/2018 EXAMINATION: CT ABDOMEN AND PELVIS WO CONTRAST CLINICAL HISTORY: ? kidney stones/ RLQ pain radiating to groin TECHNIQUE: Helical CT of the abdomen and pelvis was performed without theuse of intravenous contrast. Multiplanar reformatted images were generated. COMPARISON: 12/30/2015 FINDINGS: The absence of intravenous contrast limits the evaluation of solid visceraand vasculature. Right kidney/ureter: Severely atrophic as noted previously.. No RIGHTrenal collecting system obstruction Left kidney/ureter: New LEFT hydronephrosis and hydroureter to the levelof the mid pelvis where a nonobstructing, 6 x 10 mm oval calculus is lodged inthe LEFT ureter. As noted previously there is severe atrophy of the [place] LEFTkidney.. Transplant kidney: Transplant kidney noted in LEFT lower quadrant.Grossly stable in appearance, aside from interval removal of a previously noted percutaneous nephrostomy catheter. Urinary Bladder: Limited. Decompressed. No intravesicular calculi. Lower chest: Normal. Liver: Normal. Bile ducts: Nondilated. Gallbladder: There is layering gallbladder sludge Pancreas: Normal attenuation without ductal dilatation. Spleen: Normal. Adrenals: Normal. Vasculature: No aneurysm. Lymph Nodes: No enlarged lymph nodes. Bowel: Nondilated, no wall thickening. Scattered colonic diverticula. No diverticulitis. Peritoneum and mesentery: No ascites, free air, or loculated fluidcollection. No mesenteric inflammation. Abdominal wall: Normal. Reproductive organs: Normal. Osseous structures: No suspicious lesions. IMPRESSION New LEFT hydronephrosis and hydroureter secondary to a 6 x 10 ovalobstructing calculus in the mid LEFT ureter. 5:03 PM Nick Mendes MD G CT ORDERABLES * US Abdomen Limited (06/16/2018 4:40 PM EST) Anatomical Region Laterality Modality Abdomen Ultrasound 06/16/2018 4:37 PM EST Impressions 06/16/2018 4:49 PM EST 1. Cholelithiasis without evidence of acute cholecystitis. Mobile stone in the neck of the gallbladder. 2. Mild hepatomegaly and hepatosteatosis. No hepatic mass. 3. Atrophic right kidney. 4. Limited assessment of the pancreas secondary to overlying bowel gas. ?Joseph See MD Electronically Signed Final Report ?? 06/16/2018 04:48 pm Narrative 06/16/2018 4:49 PM EST Abdominal ? (Signed Final 06/16/2018 04:48 pm) PATIENT INFO: ID #: ? [id number] ?: ??[birth year] (67 yrs) Name: ? ETHEL AKINS ?Visit Date: 06/16/2018 04:37 pm PERFORMED BY: Performed By: ? Nicole Thompson RDMS Attending: ?Esa GERBER, Joseph Verduzco Resident: ? Patricia Malik DO Referred By: ?NICK MENDES Location: ? [place] SERVICE(S) PROVIDED: ??UABDLIM - Abdominal Limited Survey Single ? 73603 ??Organ or Quadrant - [id number] INDICATIONS: ??RUQ pain COMPARISON: Prior CT: 06/12/18. ------ LIVER: ------ Right Lobe Length: ?? 18.7 ?? cm Echogenicity/Echotexture: ?? Increased in echogenicity diffusely ? with focal sparring in the ? gallbladder fossa GALLBLADDER: Cholelithiasis: ?Single stone 1.16 cm Wall Thickness: ?2.0 mm Focal Tenderness: ?Negative sonographic Rosales's sign BILIARY TRACT: Intrahepatic Ducts: ?? Normal Extrahepatic Ducts: ?? Normal Common Duct Size: ? 4.0 ? mm --------- PANCREAS: --------- Head: ? Not visualized, obscured by overlying ? bowel Tail: ? Not visualized, obscured by overlying ? bowel Body: ? Not visualized, obscured by overlying ? bowel RIGHT KIDNEY: Size (cm) ?L: ??8.2 Cortical Thickness: ?Cortical thinning Cortical Echogenicity: ?? Echogenic Hydronephrosis: ?No sonographic evidence Comment: ?Atrophic ------ AORTA: ------ Measurements (cm): Proximal ? AP: ?? 3.0 Comment: ?Poorly visualized due to overlying bowel. ---- IVC: ---- Normal in caliber where visualized. FLUID COLLECTIONS: No sonographic evidence. Procedure Note Joseph See MD - 06/16/2018 Abdominal (Signed Final 06/16/2018 04:48 pm) PATIENT INFO: ID #: [id number] : [birth year] (67 yrs) Name: ETHEL AKINS Visit Date: 06/16/2018 04:37 pm PERFORMED BY: Performed By: Nicole Thompson RDMS Attending: Joseph See MD Resident: Patricia Malik DO Referred By: NICK MENDES Location: [place] SERVICE(S) PROVIDED: UABDLIM - Abdominal Limited Survey Single [id number] Organ or Quadrant - [id number] INDICATIONS: RUQ pain COMPARISON: Prior CT: 06/12/18. ------ LIVER: ------ Right Lobe Length: 18.7 cm Echogenicity/Echotexture: Increased in echogenicity diffusely with focal sparring in the gallbladder fossa GALLBLADDER: Cholelithiasis: Single stone 1.16 cm Wall Thickness: 2.0 mm Focal Tenderness: Negative sonographic Rosales's sign BILIARY TRACT: Intrahepatic Ducts: Normal Extrahepatic Ducts: Normal Common Duct Size: 4.0 mm --------- PANCREAS: --------- Head: Not visualized, obscured by overlying bowel Tail: Not visualized, obscured by overlying bowel Body: Not visualized, obscured by overlying bowel RIGHT KIDNEY: Size (cm) L: 8.2 Cortical Thickness: Cortical thinning Cortical Echogenicity: Echogenic Hydronephrosis: No sonographic evidence Comment: Atrophic ------ AORTA: ------ Measurements (cm): Proximal AP: 3.0 Comment: Poorly visualized due to overlying bowel. ---- IVC: ---- Normal in caliber where visualized. FLUID COLLECTIONS: No sonographic evidence. IMPRESSION 1. Cholelithiasis without evidence of acute cholecystitis. Mobile stone in the neck of the gallbladder. 2. Mild hepatomegaly and hepatosteatosis. No hepatic mass. 3. Atrophic right kidney. 4. Limited assessment of the pancreas secondary to overlying bowel gas. Joseph See MD Electronically Signed Final Report 06/16/2018 04:48 pm Nick Mendes MD IMG US GEN ORDERA BLES * Gold Tube HOLD (06/16/2018 4:05 PM EST) Gold Hold Sample in lab. [facility] Blood specimen (specimen) Venous Draw / Unknown 06/16/2018 4:05 PM EST 06/16/2018 4:20 PM EST Giovanna Arriola MD CHEMISTRY ORDERAB LES Performing Organization Address City/[facility]/ZIP Co de Phone Number [facility] [place] [address] * Blue Tube HOLD (06/16/2018 4:05 PM EST) Blue Hold Sample in lab. [facility] Blood specimen (specimen) Venous Draw / Unknown 06/16/2018 4:05 PM EST 06/16/2018 4:20 PM EST Giovanna Arriola MD HEMATOLOGY ORDERA BLES Performing Organization Address [facility] Co de Phone Number [facility] [place] [address] * Differential, Automated (06/16/2018 4:05 PM EST) [facility] Neutrophil % 63.5 % [facility] Neutrophil Absolute 4.68 1.70 - 6.10 x10(3)/[facility] Lymph % 24.5 % [facility] Lymphocytes Abs 1.8 0.9 - 3.2 x10(3)/[facility] Monocyte % 7.3 % [facility] Monocyte Abs 0.5 0.3 - 0.9 x10(3)/[facility] Eos % 3.3 % [facility] Eosinophils Abs 0.2 0.0 - 0.4 x10(3)/[facility] Basophil % 1.0 % [facility] Baso Absolute 0.1 0.0 - 0.1 x10(3)/[facility] Immature Gran % 0.40 % [facility] Comment: Immature granulocytes(IG's)percentage and absolute count will include metamyelocytes, myelocytes, and promyelocytes. Blood smears from CBCs yielding IG's will be scanned manually for concordance. If this scan disagrees with the automated IG or if promyelocytes are noted, a manual differential will be performed. Immature Gran Absolute 0.03 0.00 - 0.04 x10(3)/[facility] Blood specimen (specimen) 06/16/2018 4:05 PM EST 06/16/2018 4:20 PM EST Narrative Resulting Agency Comment Spec In Lab Giovanna Arriola MD HEMATOLOGY ORDERA BLES [facility] [place] [place] [address] * Hemogram (06/16/2018 4:05 PM EST) White Blood Cell 7.4 4.0 - 9.5 x10(3)/[facility] Red Blood Cell 5.45 4.58 - 5.54 x10(6)/[facility] Hemoglobin 16.5 13.7 - 16.5 gm/dL [facility] Hematocrit 47.0 40.5 - 48.5 % [facility] Mean Cell Volume 86.2 82.9 - 93.1 [facility] Mean Cell Hemoglobin 30.3 27.5 - 32.1 pg [facility] Mean Cell Hemoglobin Concentration 35.1 32.0 - 35.7 gm/dL [facility] Platelet 278 145 - 357 x10(3)/[facility] RDW Standard Deviation 40.4 36.0 - 45.0 [facility] RDW coefficient of variation 13.1 11.4 - 13.8 % [facility] Mean Platelet Volume 9.7 7.6 - 12.9 [facility] NRBC% auto 0.0 % [facility] NRBC Absolute 0.000 0.000 - 0.000 x10(3)/[facility] Blood specimen (specimen) 06/16/2018 4:05 PM EST 06/16/2018 4:20 PM EST Narrative Resulting Agency Comment Spec In Lab Giovanna Arriola MD HEMATOLOGY ORDERA BLES Performing Organization Address [facility]/ZIP Co de Phone Number [facility] [place] [address] * Lipase (06/16/2018 4:05 PM EST) Lipase 36 0 - 60 unit/L [facility] Blood specimen (specimen) 06/16/2018 4:05 PM EST 06/16/2018 4:20 PM EST Narrative Resulting Agency Comment Spec In Lab Nick Mendes MD CHEMISTRY ORDERAB LES Performing Organization Address [facility] de Phone Number [facility] [place] [address] * (ABNORMAL) Comprehensive metabolic panel (non-fasting) (06/16/2018 4:05 PM EST) Glucose 93 65 - 199 mg/dL [facility] Comment:Diabetes: >=200 mg/d L plus symptoms Blood Urea Nitrogen 17 10 - 20 mg/dL [facility] Creatinine 1.24 0.80 - 1.50 mg/dL [facility] Sodium 139 135 - 145 mmol/L [facility] Potassium Not Perf 3.5 - 5.0 [facility] Comment: called 06/16/18 17:05 to Carmen Ferrell Please note: ??Patients with WBC >100,000 may have falsely elevated Potassium levels. ??For accurate Potassium quantification in these patients send serum separator tube (gold top) for subsequent determinations. ??Contact the Clinical Chemistry Laboratory if there are any questions. Chloride 99 98 - 107 mmol/L [facility] Carbon Dioxide 28 22 - 31 mmol/L [facility] Anion Gap 12 5 - 15 mmol/L [facility] Calcium 9.3 8.5 - 10.5 mg/dL [facility] Protein, Total 7.6 6.1 - 8.0 gm/dL [facility] Albumin 4.0 3.2 - 5.2 gm/dL [facility] Aspartate Aminotransferase Not Perf 0 - 39 [facility] Comment:called 06/16/18 17:0 5 to Carmen Ghassan Alanine Aminotransferase Not Perf 0 - 55 [facility] Comment:called 06/16/18 17:0 5 to Carmen Ferrell Alkaline Phosphatase 64 40 - 120 unit/L [facility] Bilirubin, Total 2.0(H) 0.2 - 1.3 mg/dL [facility] Est Glomerular Filtration Rate 59(L) >=60 mL/min/1. 73 m?? [facility] Comment: The eGFR was calculated using the CKD-EPI equation. As with all creatinine based estimates of kidney function, eGFR values calculated with the CKD-EPI equation are not accurate in patients with acute kidney failure, extremes of body mass or the acutely ill. http://[employer]/[facility]ONGAnkf eGFR 68 >=60 mL/min/1. 73 m?? [facility] Comment: The eGFR was calculated using the CKD-EPI equation. As with all creatinine based estimates of kidney function, eGFR values calculated with the CKD-EPI equation are not accurate in patients with acute kidney failure, extremes of body mass or the acutely ill. http://[employer] Blood specimen (specimen) 06/16/2018 4:05 PM EST 06/16/2018 4:20 PM EST Narrative Resulting Agency Comment Spec In Lab Nick Mendes MD CHEMISTRY ORDERAB LES [facility] [place] [address] documented in this encounter Visit Diagnoses Not on filedocumented in this encounter Admitting Diagnoses Diagnosis Hydronephrosis documented in this encounter Administered Medications Inactive Administered Medications - up to 3 most recent administrations Medication Order MAR Action Action Date Dose Rate Site bisacodyl (DULCOLAX) suppository 10 mg 10 mg, Rectal, ONCE, 1 dose, On Thu06/17/18 at 1045, Routine Given 06/17/2018 11:02 AM EST 10 mg calciTRIol (ROCALTROL) capsule 0.5 mcg 0.5 mcg, Oral, DAILY, First dose on Thu06/17/18 at 0900, Until Discontinued, Routine Given 06/18/2018 9:27 AM EST 0.5 mcg Given 06/17/2018 8:45 AM EST 0.5 mcg ciprofloxacin (CIPRO) tablet 500 mg 500 mg, Oral, 2 TIMES DAILY, First dose on Thu06/17/18 at 1030, Until Discontinued, Routine, Indication for (Active or Suspected): Urinary Tract/Pyelonephritis Given 06/18/2018 7:42 AM EST 500 mg Given 06/17/2018 6:10 PM EST 500 mg Given 06/17/2018 11:55 AM EST 500 mg HYDROmorphone (DILAUDID) tablet 2 mg 2 mg, Oral, EVERY 4 HOURS PRN, Starting on Thu06/16/18 at 1840, Until Thu06/16/18 at 2049, Pain, Routine Given 06/16/2018 6:44 PM EST 2 mg iohexol (OMNIPAQUE) 300 mg/mL solution ONCE PRN, Starting on Thu06/17/18 at 1444, Until Thu06/18/18 at 1708, Intra-Operative (Intra-Procedure), Routine Given 06/17/2018 3:37 PM EST 50 mLs 19- Surgical Site levothyroxine (SYNTHROID) tablet 100 mcg 100 mcg, Oral, EVERY MORNING, First dose on Thu06/17/18 at 0700, Until Discontinued, Routine Given 06/18/2018 7:42 AM EST 100 mcg Given 06/17/2018 6:25 AM EST 100 mcg magnesium oxide (MAG-OX) tablet 400 mg 400 mg, Oral, 2 TIMES DAILY, First dose on Thu06/16/18 at 2100, Until Discontinued, Routine Given 06/18/2018 9:27 AM EST 400 mg Given 06/17/2018 8:30 PM EST 400 mg Given 06/17/2018 8:44 AM EST 400 mg mycophenolate (CELLCEPT) capsule 250 mg 250 mg, Oral, 2 TIMES DAILY, First dose on Thu06/16/18 at 2115, Until Discontinued, DO NOT CRUSH OR OPEN Administer to patient on empty stomach (1 hour before or two hours after a meal)., Routine Given 06/18/2018 7:43 AM EST 250 mg Given 06/17/2018 6:10 PM EST 250 mg Given 06/17/2018 6:25 AM EST 250 mg oxyCODONE (ROXICODONE) immediate release tablet 5 mg 5 mg, Oral, EVERY 4 HOURS PRN, Starting on Thu06/16/18 at 2049, Until Thu06/18/18 at 1142, Pain, Routine Given 06/18/2018 5:03 AM EST 5 mg Given 06/18/2018 12:40 AM EST 5 mg Given 06/17/2018 8:30 PM EST 5 mg potassium phosphate (monobasic) (K-PHOS) tablet 1,500 mg 1,500 mg, Oral, 2 TIMES DAILY, First dose on Thu06/16/18 at 2200, Until Discontinued, Dissolve tablets in 6-8 oz of water; for best results, soak tablets in water for 2-5 minutes, then stir and give to patient., Routine Given 06/18/2018 9:27 AM EST 1,500 mg Given 06/17/2018 8:31 PM EST 1,500 mg Given 06/17/2018 8:44 AM EST 1,500 mg sodium chloride 0.9% 2,000 mL IV bolus at 250 mL/hr, Intravenous, ONCE, 1 dose, On Thu06/16/18 at 1832 New Bag 06/16/2018 6:40 PM EST 250 mL/hr sulfamethoxazole-trimethoprim (BACTRIM;SEPTRA) 400-80 mg per tablet 1 tablet 1 tablet, Oral, EVERY 24 HOURS SCHEDULED (Daily), 7 doses, First dose on Thu06/16/18 at 1832, Last dose on Thu06/22/18 at 0900, Routine, Indication for (Active or Suspected): Urinary Tract/Pyelonephritis Given 06/17/2018 8:45 AM EST 1 tablet Given 06/16/2018 6:43 PM EST 1 tablet tacrolimus (PROGRAF) capsule 1 mg 1 mg, Oral, DAILY, First dose on Thu06/18/18 at 2100, Until Discontinued, Routine tacrolimus (PROGRAF) capsule 2 mg 2 mg, Oral, 2 TIMES DAILY, First dose on Thu06/17/18 at 1030, Until Discontinued, Routine Given 06/18/2018 9:27 AM EST 2 mg Given 06/17/2018 8:30 PM EST 2 mg Given 06/17/2018 11:55 AM EST 2 mg tacrolimus (PROGRAF) capsule 2 mg 2 mg, Oral, DAILY, First dose on 06/19/18 at 0900, Until Discontinued, Routine tamsulosin (FLOMAX) ER capsule 0.4 mg 0.4 mg, Oral, NIGHTLY, First dose on Thu06/16/18 at 2115, Until Discontinued, DO NOT CRUSH OR OPEN, Routine Given 06/17/2018 8:30 PM EST 0.4 mg Given 06/16/2018 10:01 PM EST 0.4 mg documented in this encounter Active and Recently Administered Medications Times are shown in EST. Scheduled Medication Order 06/16/2018 06/17/2018 06/18/2018 bisacodyl (DULCOLAX) suppository 10 mg (COMPLETED) 10 mg, Rectal, ONCE, 1 dose, On Laura 06/17/18 at 1045, Routine 1102 (Given - Provider: Tomasa Crawford RN) calciTRIol (ROCALTROL) capsule 0.5 mcg 0.5 mcg, Oral, DAILY, First dose on Laura 06/17/18 at 0900, Until Discontinued, Routine 0845 (Given - Provider: Tomasa Crawford RN)1517 (SEP Hold - Provider: Admin Adt - Reason: Transfer to a Procedural area)1644 (SEP Unhold - Provider: Admin Adt) 0927 (Given - Provider: Selena Nicolas RN) ciprofloxacin (CIPRO) tablet 500 mg 500 mg, Oral, 2 TIMES DAILY, First dose on Laura 06/17/18 at 1030, Until Discontinued, Routine, Indication for (Active or Suspected): Urinary Tract/Pyelonephritis 1155 (Given - Provider: Tomasa Crawford RN)1517 (SEP Hold - Provider: Admin Adt - Reason: Transfer to a Procedural area)1644 (SEP Unhold - Provider: Admin Adt)1810 (Given - Provider: Tomasa Crawford RN) 0742 (Given - Provider: Sandra Ortiz RN) levothyroxine (SYNTHROID) tablet 100 mcg 100 mcg, Oral, EVERY MORNING, First dose on Thu06/17/18 at 0700, Until Discontinued, Routine 06 (Given - Provider: Ozzy Mccormick RN)151 (SEP Hold - Provider: Admin Adt - Reason: Transfer to a Procedural area)1644 (MAR Unhold - Provider: Admin Adt) 0742 (Given - Provider: Sandra Ortiz, JADEN) magnesium oxide (MAG-OX) tablet 400 mg 400 mg, Oral, 2 TIMES DAILY, First dose on Thu06/16/18 at 2100, Until Discontinued, Routine 2200 (Given - Provider: Ozzy Mccormick RN) 0844 (Given - Provider: Tomasa Crawford RN)151 ([facility] Hold - Provider: Admin Adt - Reason: Transfer to a Procedural area)164 ([facility] Unhold - Provider: Admin Adt)2030 (Given - Provider: Sandra Ortiz RN) 09 (Given - Provider: Selena Nicolas RN) mycophenolate (CELLCEPT) capsule 250 mg 250 mg, Oral, 2 TIMES DAILY, First dose on Thu06/16/18 at 2115, Until Discontinued, DO NOT CRUSH OR OPEN Administer to patient on empty stomach (1 hour before or two hours after a meal)., Routine 2200 (Given - Provider: Ozzy Mccormick RN) 0625 (Given - Provider: Ozzy Mccormick RN)1517 ([facility] Hold - Provider: Admin Adt - Reason: Transfer to a Procedural area)1644 ([facility] Unhold - Provider: Admin Adt)1810 (Given - Provider: Tomasa Crawford, JADEN) 0743 (Given - Provider: Sandra Ortiz RN) potassium phosphate (monobasic) (K-PHOS) tablet 1,500 mg 1,500 mg, Oral, 2 TIMES DAILY, First dose on Thu06/16/18 at 2200, Until Discontinued, Dissolve tablets in 6-8 oz of water; for best results, soak tablets in water for 2-5 minutes, then stir and give to patient., Routine 2200 (Given - Provider: Ozzy Mccormick RN) 0844 (Given - Provider: Tomasa Crawford RN)151 ([facility] Hold - Provider: Admin Adt - Reason: Transfer to a Procedural area)1644 (SEP Unhold - Provider: Admin Adt)2030 (Given - Provider: Sandra Ortiz, RN) 09 (Given - Provider: Selena Nicolas, JADEN) sodium chloride 0.9% 2,000 mL IV bolus (COMPLETED) at 250 mL/hr, Intravenous, ONCE, 1 dose, On Thu06/16/18 at 1832 1840 (New Bag - Provider: Huyen Garrett RN - Comment: 2nd liter hung at 1950) 0240 (Stopped - Provider: Ozzy Mccormick RN) sulfamethoxazole-trime thoprim (BACTRIM;SEPTRA) 400-80 mg per tablet 1 tablet (CANCELED) 1 tablet, Oral, EVERY 24 HOURS SCHEDULED (Daily), 7 doses, First dose on Thu06/16/18 at 1832, Last dose on Thu06/22/18 at 0900, Routine, Indication for (Active or Suspected): Urinary Tract/Pyelonephritis 1843 (Given - Provider: Halima Contreras RN) 0845 (Given - Provider: Tomasa Crawford RN) tacrolimus (PROGRAF) capsule 1 mg 1 mg, Oral, DAILY, First dose on Thu06/18/18 at 2100, Until Discontinued, Routine tacrolimus (PROGRAF) capsule 2 mg (CANCELED) 2 mg, Oral, 2 TIMES DAILY, First dose on Laura 06/17/18 at 1030, Until Discontinued, Routine 1155 (Given - Provider: Tomasa Crawford RN)1517 (SEP Hold - Provider: Admin Adt - Reason: Transfer to a Procedural area)164 ([facility] Unhold - Provider: Admin Adt)2029 (Given - Provider: Sandra Ortiz RN) 09 (Given - Provider: Selena Nicolas, JADEN) tacrolimus (PROGRAF) capsule 2 mg 2 mg, Oral, DAILY, First dose on Thu06/19/18 at 0900, Until Discontinued, Routine tamsulosin (FLOMAX) ER capsule 0.4 mg 0.4 mg, Oral, NIGHTLY, First dose on Thu06/16/18 at 2115, Until Discontinued, DO NOT CRUSH OR OPEN, Routine 2201 (Given - Provider: Ozzy Mccormick RN) 1517 ([facility] Hold - Provider: Admin Adt - Reason: Transfer to a Procedural area)1644 (MAR Unhold - Provider: Admin Adt)2030 (Given - Provider: Sandra Ortiz, RN) PRN Medication Order 06/16/2018 06/17/2018 06/18/2018 HYDROmorphone (DILAUDID) tablet 2 mg (CANCELED) 2 mg, Oral, EVERY 4 HOURS PRN, Starting on Thu06/16/18 at 1840, Until Thu06/16/18 at 2049, Pain, Routine 1844 (Given - Provider: Halima Contreras RN) iohexol (OMNIPAQUE) 300 mg/mL solution (CANCELED) ONCE PRN, Starting on Laura 06/17/18 at 1444, Until 06/18/18 at 1708, Intra-Operative (Intra-Procedure), Routine 1537 (Given - Provider: Edinson Grider III, MD - Comment: Omnipaque 300 mgI/mL (total of 50 mL) on field for MD to use prn fluroscopy.) oxyCODONE (ROXICODONE) immediate release tablet 5 mg (CANCELED) 5 mg, Oral, EVERY 4 HOURS PRN, Starting on 06/16/18 at 2049, Until Thu06/18/18 at 1142, Pain, Routine 2227 (Given - Provider: Ozzy Mccormick RN) 0321 (Given - Provider: Ozzy Mccormick RN)0735 (Given - Provider: Tomasa Crawford, JADEN)1223 (Given - Provider: Tomasa Crawford RN)1517 (MAR Hold - Provider: Admin Adt - Reason: Transfer to a Procedural area)1600 (MAR Unhold - Provider: Karly Parra, JADEN)2030 (Given - Provider: Sandra Ortiz, JADEN) 0040 (Given - Provider: Sandra Ortiz, JADEN)0503 (Given - Provider: Maris Tavarez V, RN) documented in this encounter Care Teams Copy Chief Relationship Specialty Start Date End Date Urbano Denis DO [address] [place] [address] PCP - General 09/03/12 03/17/22 Hai STANLEY,Ruchi Nurse Clinic Transplant Surgery 07/30/15 documented as of this encounter
--- OUTSIDE RECORDS SUMMARY | 2024-02-14 11:24 | XMS_ITS | Encounter Summary ---
Author Organization [facility] Address [facility] [place] [address] Care Team Providers Care Biometric Fingerprinting Technician Name Role Phone AdeelUrbano Primary Care Provider + [phone] Reason for Visit * Reason Onset Date Comments Medication Refill Medication Refill 07/27/2018 Encounter Details Date Type Department Care Team (Late st Contact Info) Description 07/27/2018 Refill [place] [address] Tal Eagle MD [facility] [place] [address] Social History Tobacco Use Types Packs/Day Years [...] Telephone Encounter - Tim Miles LPN - 07/27/2018 3:49 PM EST Called pt to verify a Rx refill request received from [facility] in [place]. Pt was vacationing there previously and had run out of Rx, therefore had to have emergency supply sent to local [place] pharmacy. [place] longer in [place]. Rx supply was for Mycophenolate 250 mg caps, 30 days. Sent 06/28/18. Pt unsure of current supply. Asked pt if he wanted supply pended to preferred pharmacy here since Rx supply should be low. Pt agreed. documented in this encounter Plan of Treatment Upcoming Encounters Date Type Department Care Team (Late st Contact Info) Description 04/15/2024 10:00 AM EDT Hospital Encounter [place] [address] Arrived documented as of this encounter Goals [...] on filedocumented in this encounter Care Teams Biometric Fingerprinting Technician Relationship Specialty Start Date End Date Urbano Denis DO [address] [place] [address] PCP - General 09/03/12 03/17/22 Ruchi Valles RN Nurse Clinic Transplant Surgery 07/30/15 documented as of this encounter
--- OUTSIDE RECORDS SUMMARY | 2024-02-14 11:24 | XMS_ITS | Encounter Summary ---
Author Organization [facility] [place] [address] Care Team Providers Care Service Delivery Director Name Role Phone Adeel Urbano KIRBY Primary Care Provider Encounter Details Date Type Department Care Team (Latest Contact Info) Description 09/15/2018 10:40 AM EDT Office Visit [place] [address] Tal Eagle MD [facility] [place] [address] Kidney replaced by transplant; Vitamin D deficiency ; Type 2 diabetes mellitus with complication, without long-term current use of insulin; Aftercare following organ transplant; Prophylactic immunotherapy Social [...] Sign Reading Time Taken Comments Blood Pressure 140/62 09/15/2018 11:12 AM EDT Pulse 59 09/15/2018 11:12 AM EDT Temperature 36.7 ??C (98.1 ??F) 09/15/2018 1 1:12 AM EDT Respiratory Rate - - Oxygen Saturation 97% 09/15/2018 11: 12 AM EDT Inhaled Oxygen Concentration - - Weight 105.2 kg (232 lb) 09/15/2018 11: 12 AM EDT with clothes (224.0 without) Height - - Body Mass Index 33.29 06/16/2018 10:08 PM EST documented in this encounter Progress Notes * Abdirahman Chiu MBBS - 09/15/2018 10:40 AM EDT Transplant Nephrology Clinic Follow up Note PATIENT: Cody Bolden : 1950 HPI: 68 y.o. male with PMHx significant for Transplant organ/Indication: ??Kidney / DM, HTN ? History of Present Illness: 67??y.o. male w/ hx of HCV, DM, [...] C and he has cleared the infection. ? Interim Hx:??Patient drinks 3-4 liter fluids/day. He has been having gastrointestinal reflux symptoms for last few days without abdominal pain, fever, nausea and vomiting . He has been taking Baking soda 1 teaspoon eery day for last few days. ?? Healthcare maintenance for a transplant recipient: ?Immunizations [...] for diabetics, every 5 for non diabetics [place] kidney ultrasound looking for renal cell CA, every 5 years post transplant Bone density assessment every 9-12 years post transplant Annual fasting lipid profile Annual PTH-Vit D3 assessment until normalized Annual spot urine for creatinine, protein, calcium, phosphate, magnesium ? Medications: ??Current Outpatient Prescriptions: ??? levothyroxine (SYNTHROID) 137 mcg Tablet, Take 137 mcg by mouth daily., Disp: , Rfl: ??? Magnesium Gluconate 27 mg (500 mg) Tablet, Take 2 tablets by mouth 2 times daily., Disp: , Rfl: ??? potassium phosphate, monobasic, (K-PHOS) 500 mg Tablet, Soluble, Take 3 tabs at lunch time and 3 tabs at bedtime, Disp: 540 tablet, Rfl: 3 ??? tamsulosin (FLOMAX) 0.4 mg Capsule, Sust. Release 24 hr, Take 1 capsule by mouth nightly for 364 days., Disp: 30 capsule, Rfl: 11 ??? sulfamethoxazole-trimethoprim (BACTRIM;SEPTRA) 400-80 mg Tablet, Take 1 tablet by mouth daily.,Disp: 90 tablet, Rfl: 3 ??? mycophenolate (CELLCEPT) 250 mg Capsule, Take 250 mg twice daily. Kidney transplant 09/16/15. ICD code Z94.0, Disp: 60 capsule, Rfl: 11 ??? calciTRIol (ROCALTROL) 0.5 mcg Capsule, Take 1 capsule by mouth daily., Disp: 90 capsule, Rfl: 3 ??? PROGRAF 1 mg Capsule, Take 2 capsules in the morning and 1 capsule at night. Kidney transplant 09/16/2015. ICD code Z94.0, Disp: 270 capsule, Rfl: 3 ??? ascorbic acid, vitamin C, (VITAMIN C) 500 mg Tablet, Take 1 tablet by mouth 3 times daily., Disp: 30 tablet, Rfl: 3 ??? clopidogrel (PLAVIX) 75 mg Tablet, Take 75 mg by mouth daily., Disp: , Rfl: ??? acetaminophen (TYLENOL) 500 mg Tablet, Take 1,000 mg by mouth every 6 hours as needed for Pain.Reported on 09/15/2016, Disp: , Rfl: ? Allergies / ADRs: No Known Allergies ROS: Constitutional - No fevers, chills, weight [...] urinating or blood in urine. Neuro - No weakness. No numbness/ tingling in extremities. PHYSICAL EXAM: Last value Range last 24 hrs Temperature Temp: 36.7 ??C (98.1 ??F) Temp: [36.7 ??C (98.1 ??F)] Heart Rate Heart Rate: 59 Heart Rate: [59] Blood Pressure BP: 140/62 BP: (140)/(62) Respiratory Rate Resp: -- SpO2 SpO2: 97 % SpO2: [97 %] Appearance - Alert, Comfortable. Skin - No exanthem. HEENT - Sclera white. Mucous membranes moist. Chest: Lungs clear to ausculatation w/o wheezes/ rhonchi/ crackles. Heart - S1 and S2 clear w/o murmur, gallop, or rub. JVP not elevated. Abd - Soft. + BS. No bruit. Non tender. Ext - Warm. No cyanosis. No dependent edema. Neuro - No asterixis. STUDIES: Labs: CBC: Recent Labs 09/15/18 0953 06/18/18 0553 06/17/18 0619 WBC 8.4 7.2 7.6 HGB 16.4 15.6 15.9 PLATELET 272 259 274 Chemistry: Recent Labs 09/15/18 0953 06/18/18 0553 06/17/18 0619 06/16/18 2154 NA 140 139 139 139 K 3.8 3.6 3.5 3.4* CL 97* 102 102 101 CO2 32* 25 25 24 BUN 18 18 14 14 CREATININE 1.23 1.34 1.20 1.12 GLUCOSE -- 113 108 99 Recent Labs 09/15/18 0953 06/18/18 0553 06/17/18 0619 CALCIUM 10.0 8.8 8.8 MAGNESIUM 0.71 0.72 0.70 PHOS 3.2 3.3 2.8 LFT's: Recent Labs 09/15/18 0953 06/18/18 0553 06/17/18 0619 BILITOT 2.9* 2.7* 2.8* ALBUMIN 4.3 3.5 3.4 ALKPHOS 78 61 64 ALT 22 14 17 AST 20 14 16 IMPRESSION/ RECOMMENDATIONS: Mr. Bolden is a 68 yr old gentleman w/ hx of kidney transplant who presents to clinic for f/u visit . His ureteral obstruction and hep C issues have been resolved. He has developed metabolic alkalosis and mild hypokalemia due to Baking soda ingestion . ? Transplant Status -s/p donor kidney transplant -Creatinine stable??1.23 mg/dL -Drinks 3-4 fluids/day -Patient now has PTDM treatment and is under care with his??PCP and on Glipizide , HbA1c is 6.6 ? Immunosuppression -Prograf, Cellcept ? PO4/Mg - Kphos. decr to 2 tabs bid - Magnesium gluconate to 1000mg BID -Advised not to take Baking soda which cause alkalosis and hypokalemia - He can take liquid antacid OTC or zantac or Tums Erythrocytosis - HgB is 16.4 and Hct is 48.8 No need of RAAS inhibition , continue hydration Close follow up ? Hypertension: BP is 140-62 mmhg , not on antihypertensive Encourage to check BP at home -??on Flomax ? Hepatitis C -on Harvoni treatment -Viral load undetectable after treatment in June ?? [id number] labs f/u in 1 year . Thanks for letting us participate in the care of this patient. o Discussion with the patient and/or family concerned the following: ? Diagnostic results or recommended studies ? Prognosis; ? Risks and benefits of management; ? Instructions for management; ? Compliance with treatment; ? Risk factor reduction; ? Patient and family education. o Total time 25 of 30 min in direct face to face deputy general counsel. Abdirahman Chiu Nephrology Fellow I reviewed all of the above findings and assessment of Dr. Chiu, edited the above note to reflect my assessment and examination and formulated the recommendations which accurately reflect mine. documented in this encounter Plan of Treatment Upcoming Encounters Date Type Department Care Team (Late st Contact Info) Description 04/15/2024 10:00 AM EDT Hospital Encounter [place] [address] Arrived documented as of this encounter Goals Goal Patient Goal Type Associated Problems Recent Progress Patient-Stated? Author DH Home Medication Compliance and Understanding Patient Facing Action Plan On track( 017 10:41 AM EDT) Selena Scott, [facility] Note: Patient Goal: Clear hepatitis C Timeframe to meet goal: within 12 weeks of therapy documented as of this encounter Results * (ABNORMAL) Vitamin D, 25-Hydroxy (09/15/2018 9:53 AM EDT) Vitamin D Total 25 OH 19(L) 30 - 100 ng/mL [facility] Comment: Deficient <10 ng/mL Insufficient 10 to 29 ng/mL Sufficient 30 to 100 ng/mL Potential Intoxication >100 ng/mL According to the [place] National Osteoporosis Foundation, Vitamin D concentrations >30 ng/mL are sufficient to protect bone health. ??The National Kidney Foundation has similarly stated that patients with Vitamin D concentrations <30ng/mL should be considered to be insufficient or deficient. http://Synchris.com/nkf-guidelines http://Synchris.com/nejm-VitD The IDS iSYS Vitamin D Immunoassay detects both 25-OH Vitamin D2 and 25-OH Vitamin D3, but only a total Vitamin D concentration is reported. Blood specimen (specimen) 09/15/2018 9:53 AM EDT 09/15/2018 12:08 PM EDT Narrative Resulting Agency Comment Spec In Lab Tal Eagle MD CHEMISTRY ORDERAB LES Performing Organization Address City/[facility]/ZIP Co de Phone Number [facility] [place] [address] * Uric acid (09/15/2018 9:53 AM EDT) Uric Acid 8.1 3.5 - 8.5 mg/dL [facility] Blood specimen (specimen) 09/15/2018 9:53 AM EDT 09/15/2018 10:01 AM EDT Narrative Resulting Agency Comment Spec In Lab Tal Eagle MD CHEMISTRY ORDERAB LES Performing Organization Address [facility] de Phone Number [facility] [place] [address] * Tacrolimus level (09/15/2018 9:53 AM EDT) Tacrolimus 7.8 ng/mL [facility] Comment: Trough therapeutic: ??5-15 ng/mL Performed by ultra-performance liquid chromatography tandem mass spectrometry (UPLCMS/MS). This test was developed and its performance characteristics determined by [facility]. It has not been cleared or approved by the FDA. The laboratory is regulated under CLIA as qualified to perform high-complexity testing. This test is used for clinical purposes. It should not be regarded as investigational or for research. Blood specimen (specimen) 09/15/2018 9:53 AM EDT 09/15/2018 12:07 PM EDT Narrative Resulting Agency Comment Spec In Lab Tal Eagle MD CHEMISTRY ORDERAB LES Performing Organization Address [facility] Co de Phone Number [facility] [place] [address] * Reticulocyte Count (09/15/2018 9:53 AM EDT) Reticulocyte % 2.0 0.7 - 2.6 % [facility] Retic Abs # 0.110 0.030 - 0.120 x10(6)/mcL [facility] Immature Retic% 8.1 0.0 - 15.6 % [facility] Reticulated Hgb 35.9 31.3 - 40.2 pg [facility] Blood specimen (specimen) 09/15/2018 9:53 AM EDT 09/15/2018 10:01 AM EDT Narrative Resulting Agency Comment Spec In Lab Tal Eagle MD HEMATOLOGY ORDERA BLES Performing Organization Address [facility]/ZIP Co de Phone Number [facility] [place] [address] * (ABNORMAL) PTH (09/15/2018 9:53 AM EDT) Parathyroid Hormone 78(H) 15 - 65 pg/mL [facility] Blood specimen (specimen) 09/15/2018 9:53 AM EDT 09/15/2018 10:01 AM EDT Narrative Resulting Agency Comment Spec In Lab Tal Eagle MD CHEMISTRY ORDERAB LES Performing Organization Address [facility]/ZIP Co de Phone Number [facility] [place] [address] * Phosphorus (09/15/2018 9:53 AM EDT) Phosphorus 3.2 2.5 - 4.5 mg/dL [facility] Blood specimen (specimen) 09/15/2018 9:53 AM EDT 09/15/2018 10:01 AM EDT Narrative Resulting Agency Comment Spec In Lab Tal Eagle MD CHEMISTRY ORDERAB LES Performing Organization Address City/[facility]/ZIP Co de Phone Number [facility] [place] [address] * Magnesium (09/15/2018 9:53 AM EDT) Magnesium 0.71 0.69 - 1.07 mmol/L [facility] Blood specimen (specimen) 09/15/2018 9:53 AM EDT 09/15/2018 10:01 AM EDT Narrative Resulting Agency Comment Spec In Lab Tal Eagle MD CHEMISTRY ORDERAB LES Performing Organization Address City/State/[facility] Co de Phone Number [facility] [place] [address] * Lipid Panel (09/15/2018 9:53 AM EDT) Cholesterol, Total 151 mg/dL [facility] Comment: Lower Risk: <200 mg/dL Average Risk: 200-239 mg/dL Higher Risk: >ki=143 mg/dL Triglyceride 166 mg/dL [facility] Comment: Average Risk/Lower Risk: <150 mg/dL Borderline High Risk: 150-199 mg/dL High Risk: 200-499 mg/dL Very High Risk: >iz=362 mg/dL HDL Cholesterol 40 mg/dL [facility] Comment: Males: ?? Higher Risk: <40 mg/dL Females: ?? HIgher Risk: <50 mg/dL LDL Cholesterol 78 mg/dL [facility] Comment: Lowest Risk: <100 mg/dL Lower Risk: 100-129 mg/dL Borderline High Risk: 130-159 mg/dL High Risk: 160-189 mg/dL Very High Risk: >xy=957 mg/dL Cholesterol/HDL Ratio 3.8 ratio [facility] Lipid Interpretation See Note [facility] Comment: Lipid management should be guided by a patient? s ASCVD risk, goals and preferences. ACC/AHA Guidelines recommend high intensity statin if clinical ASCVD or LDL greater than or equal to 190 mg/dL. http://Tapas [email or web address].com/JLN-BMU-Likagnmia Adults aged 40-75 with LDL 70-189 mg/dL should have their 10 year ASCVD risk estimated with the ACC/AHA ASCVD risk construction job cost estimator http://tools.acc.org/FFZYN-Bceo-Ihvqfpxwp/ Statin should be discussed if risk greater [...] of ASCVD risk reduction. Blood specimen (specimen) 09/15/2018 9:53 AM EDT 09/15/2018 10:01 AM EDT Narrative Resulting Agency Comment Spec In Lab Tal Eagle MD CHEMISTRY ORDERAB LES Performing Organization Address [facility] Co de Phone Number [facility] [place] [address] * Lavender Tube HOLD (09/15/2018 9:53 AM EDT) Lavender Hold Sample in lab. [facility] Blood specimen (specimen) 09/15/2018 9:53 AM EDT 09/15/2018 10:01 AM EDT Tal Eagle MD HEMATOLOGY ORDERA BLES Performing Organization Address [facility] Co de Phone Number [facility] [place] [address] * (ABNORMAL) Hemoglobin A1c (09/15/2018 9:53 AM EDT) Hemoglobin A1c 6.6(H) 4.3 - 5.6 % [facility] [...] Mellitus, Diabetes Care 2013; 36: Suppl. 1, S67-92 Estimated Average Glucose See note mg/dL [facility] [...] into estimated average glucose values. ??Diabetes Care 2008:31(8):5124-0432. Blood specimen (specimen) 09/15/2018 9:53 AM EDT 09/15/2018 10:01 AM EDT Narrative Resulting Agency Comment Spec In Lab Tal Eagle MD CHEMISTRY ORDERAB LES [facility] [place] [address] * Gold Tube HOLD (09/15/2018 9:53 AM EDT) Gold Hold Sample in lab. [facility] Blood specimen (specimen) 09/15/2018 9:53 AM EDT 09/15/2018 10:00 AM EDT Tal Eagle MD CHEMISTRY ORDERAB LES [facility] [place] [address] * (ABNORMAL) CMP w/fasting Glucose (09/15/2018 9:53 AM EDT) Glucose Fasting 151(H) 65 - 99 mg/dL [facility] Comment: ?Fasting* Glucose Interpretive [...] of Diabetes Mellitus, Position Statement from the [place] [employer]. ??Diabetes Care, Volume 33, Supplement 1, Jul 2009 Blood Urea Nitrogen 18 10 - 20 mg/dL [facility] Creatinine 1.23 0.80 - 1.50 mg/dL [facility] Sodium 140 135 - 145 mmol/L [facility] Potassium 3.8 3.5 - 5.0 mmol/L [facility] Comment: Please note: ??Patients with WBC >100,000 may have falsely elevated Potassium levels. ??For accurate Potassium quantification in these patients send serum separator tube (gold top) for subsequent determinations. ??Contact the Clinical Chemistry Laboratory if there are any questions. Chloride 97(L) 98 - 107 mmol/L [facility] Carbon Dioxide 32(H) 22 - 31 mmol/L [facility] Anion Gap 11 5 - 15 mmol/L [facility] Calcium 10.0 8.5 - 10.5 mg/dL [facility] Protein, Total 7.7 6.1 - 8.0 gm/dL [facility] Albumin 4.3 3.2 - 5.2 gm/dL [facility] Aspartate Aminotransferase 20 0 - 39 unit/L [facility] Alanine Aminotransferase 22 0 - 55 unit/L [facility] Alkaline Phosphatase 78 40 - 120 unit/L [facility] Bilirubin, Total 2.9(H) 0.2 - 1.3 mg/dL [facility] [...] of body mass or the acutely ill. [email or web address], [email or web address] eGFR 69 >=60 mL/min/1. 73 m?? [facility] Comment: The eGFR was calculated using the CKD-EPI equation. As with all creatinine based estimates of kidney function, eGFR values calculated with the CKD-EPI equation are not accurate in patients with acute kidney failure, extremes of body mass or the acutely ill. [email or web address] Blood specimen (specimen) 09/15/2018 9:53 AM EDT 09/15/2018 10:01 AM EDT Narrative Resulting Agency Comment Spec In Lab Tal Eagle MD CHEMISTRY ORDERAB LES Performing Organization Address City/State/[facility] Co de Phone Number [facility] [place] [address] * (ABNORMAL) 1,25-dihydroxycholecalciferol (09/15/2018 9:53 AM EDT) Vit D 1,25 Dihydroxy (NOVEMBER) 70(H) 18 - 64 pg/mL [facility] Comment: ADDITIONAL INFORMATION This test was developed and its performance characteristics determined by [facility] in a manner consistent with CLIA requirements. This test has not been cleared or approved by the U.S. Food and Drug Administration. Test Performed by: [facility] [address] [place] [address] Blood specimen (specimen) 09/15/2018 9:53 AM EDT 09/15/2018 1:05 PM EDT Narrative Resulting Agency Comment Spec In Lab Tal Eagle MD LAB SEND OUT ROCHELLE JENNINGS [facility] [place] [address] * BKV Quant Blood (09/15/2018 9:53 AM EDT) Pathologist [facility] BKV Blood Result Not Detected [facility] BKV Blood Interp BK Virus Plasma Result Interpretation Result: BK Virus not detected Specimen type: plasma Assay Range: 2.80-7.80 log copies/mL (6.28x10^2 - 6.28x10^7 copies/mL) Methods: Quantitative real-time polymerase chain reaction (PCR) of viral DNA isolated from plasma was performed using [employer] BKV analyte-specific reagents and the [employer] System that automates both nucleic acid isolation [...] [facility] [employer] ([facility]) Laboratory at [facility] [place] [place]. It has not been cleared or approved by the FDA. The laboratory is regulated under CLIA as qualified to perform high-complexity testing. This test is used for clinical purposes. It should not be regarded as investigational or for research. [facility] Comment: [VERIFIED DATE]09.23.18 Verified By:Tal Cleaning (Electronic Signature) Blood specimen (specimen) 09/15/2018 9:53 AM EDT 09/15/2018 11:12 AM EDT Narrative Resulting Agency Comment Spec In Lab Tal Eagle MD MOLECULAR ORDERAB LES Performing Organization Address City/[facility]/ZIP Co de Phone Number [facility] [place] [address] * (ABNORMAL) Urinalysis with reflex Culture (09/15/2018 9:48 AM EDT) Glucose, Urine Dipstick Negative Negative [...] CENTER LABORATORY Leukocytes, Urine Dipstick Negative Negative mcL [facility] Appearance, Urine Dipstick Clear Clear [facility] Specific Viola Urine Automated 1.021 1.002 - 1.030 [facility] Color, Urine Dipstick Yellow Yellow [facility] Reflex to Culture No [facility] Urine specimen obtained by clean catch procedure (specimen) 09/15/2018 9:48 AM EDT 09/15/2018 9:58 AM EDT Narrative Resulting Agency Comment Spec In Lab Tal Eagle MD URINE ORDERABLES Performing Organization Address City/[facility]/ZIP Co de Phone Number [facility] [place] [address] * (ABNORMAL) Protein/Creatinine Ratio, urine (09/15/2018 9:48 AM EDT) Creatinine, Urine 117 mg/dL [facility] Protein, Urine 153(H) 0 - 12 mg/dL [facility] Protein / Creatinine Ratio, Urine 1.3 ratio [facility] Urine specimen (specimen) 09/15/2018 9:48 AM EDT 09/15/2018 10:00 AM EDT Narrative Resulting Agency Comment Spec In Lab Tal Eagle MD URINE ORDERABLES Performing Organization Address City/[facility]/ZIP Co de Phone Number [facility] [place] [address] * Phosphorus, urine, random (09/15/2018 9:48 AM EDT) Phosphorus, Urine 71.7 mg/dL [facility] Urine specimen (specimen) 09/15/2018 9:48 AM EDT 09/15/2018 2:24 PM EDT Narrative Resulting Agency Comment Spec In Lab Tal Eagle MD URINE ORDERABLES Performing Organization Address City/[facility]/ZIP Co de Phone Number [facility] [place] [address] * Magnesium, urine, random (09/15/2018 9:48 AM EDT) Magnesium, Urine 0.84 mmol/L [facility] Urine specimen (specimen) 09/15/2018 9:48 AM EDT 09/15/2018 10:00 AM EDT Narrative Resulting Agency Comment Spec In Lab Tal Eagle MD URINE ORDERABLES Performing Organization Address City/[facility]/ZIP Co de Phone Number [facility] [place] [address] * Calcium Creatinine Ratio, random urine (09/15/2018 9:48 AM EDT) Calcium, Urine 6.5 mg/dL [facility] Creatinine, Urine 117 mg/dL [facility] Calcium / Creatinine Ratio, Urine 0.06 ratio [facility] Urine specimen (specimen) 09/15/2018 9:48 AM EDT 09/15/2018 2:24 PM EDT Narrative Resulting Agency Comment Spec In Lab Tal Eagle MD URINE ORDERABLES [facility] [place] [address] documented in this encounter Visit Diagnoses Diagnosis Kidney replaced by transplant Vitamin D deficiency Unspecified vitamin D deficiency Type 2 diabetes mellitus with complication, without long-term current use of insulin Aftercare following organ transplant Prophylactic immunotherapy Need for prophylactic immunotherapy documented in this encounter Care Teams Service Delivery Director Relationship Specialty Start Date End Date Urbano Denis DO [address] [place] [address] PCP - General 09/03/12 03/17/22 Ruchi Valles RN Nurse Clinic Transplant Surgery 07/30/15 documented as of this encounter
--- OUTSIDE RECORDS SUMMARY | 2024-02-14 11:24 | XMS_ITS | Encounter Summary ---
[place] [address] Care Team Providers Care Adult Education Teacher Name Role Phone Adeel Urbano KIRBY Primary Care Provider [phone] Encounter Details Date Type Department Care Team (Latest Contact Info) Description 09/15/2018 9:40 AM EDT Laboratory Appointment Lab [address] [place] [address] Kidney replaced by transplant; Vitamin D deficiency ; Type 2 diabetes mellitus with complication, without long-term current use of insulin Social History Tobacco Use Types Packs/Day Years [...] AM EDT Hospital Encounter [place] [address] Arrived documented as of this [...] Name Priority Date/Time Associated Diagnosis Comments PTH STAT 09/15/2018 9:53 AM EDT Kidney replaced by transplant CMP W/FASTING GLUCOSE STAT 09/15/2018 9:53 AM EDT Kidney replaced by transplant BKV QUANT BLOOD STAT 09/15/2018 9:53 AM EDT Kidney replaced by transplant HEMOGRAM STAT 09/15/2018 9:53 AM EDT Kidney replaced by transplant DIFFERENTIAL, AUTOMATED STAT 09/15/2018 9:53 AM EDT Kidney replaced by transplant GOLD TUBE HOLD STAT 09/15/2018 9:53 AM EDT Kidney replaced by transplant LAVENDER TUBE HOLD STAT 09/15/2018 9: 53 AM EDT Kidney replaced by transplant TACROLIMUS LEVEL STAT 09/15/2018 9:53 AM EDT Kidney replaced by transplant 1,25-DIHYDROXYCHOLECA LCIFEROL STAT 09/15/2018 9:53 AM EDT Kidney replaced by transplant Vitamin D deficiency VITAMIN D, 25-HYDROXY STAT 09/15/2018 9:53 AM EDT Kidney replaced by transplant Vitamin D deficiency RETICULOCYTE COUNT STAT 09/15/2018 9: 53 AM EDT Kidney replaced by transplant CBC (WITH DIFF) STAT 09/15/2018 9:53 AM EDT Kidney replaced by transplant URIC ACID STAT 09/15/2018 9:53 AM EDT Kidney replaced by transplant PHOSPHORUS STAT 09/15/2018 9:53 AM EDT Kidney replaced by transplant MAGNESIUM STAT 09/15/2018 9:53 AM EDT Kidney replaced by transplant HEMOGLOBIN A1C STAT 09/15/2018 9:53 AM EDT Kidney replaced by transplant Type 2 diabetes mellitus with complication, without long-term current use of insulin LIPID PANEL (REFLEX DIRECT LDL) STAT 09/15/2018 9:53 AM EDT Kidney replaced by transplant URINALYSIS MICROSCOPIC EXAM STAT 09/15/2018 9:48 AM EDT CALCIUM CREATININE RATIO, RANDOM URINE STAT 09/15/2018 9:48 AM EDT Kidney replaced by transplant PROTEIN/CREATININE RATIO, URINE Routine 09/15/2018 9:48 AM EDT Kidney replaced by transplant PHOSPHORUS, URINE, RANDOM STAT 09/15/2018 9:48 AM EDT Kidney replaced by transplant MAGNESIUM, URINE, RANDOM Routine 09/15/2018 9:48 AM EDT Kidney replaced by transplant URINALYSIS WITH REFLEX CULTURE STAT 09/15/2018 9:48 AM EDT Kidney replaced by transplant documented in this encounter Results * Differential, Automated (09/15/2018 9:53 AM EDT) Neutrophil % 69.8 % [facility] Neutrophil Absolute 5.87 1.70 - 6.10 x10(3)/[facility] Lymph % 17.8 % [facility] Lymphocytes Abs 1.5 0.9 - 3.2 x10(3)/[facility] Monocyte % 8.4 % [facility] Monocyte Abs 0.7 0.3 - 0.9 x10(3)/[facility] Eos % 2.9 % [facility] Eosinophils Abs 0.2 0.0 - 0.4 x10(3)/[facility] Basophil % 0.7 % [facility] Baso Absolute 0.1 0.0 - 0.1 x10(3)/[facility] Immature Gran % 0.40 % [facility] Comment: Immature granulocytes(IG's)percentage and absolute count will include metamyelocytes, myelocytes, and promyelocytes. Blood smears from CBCs yielding IG's will be scanned manually for concordance. If this scan disagrees with the automated IG or if promyelocytes are noted, a manual differential will be performed. Immature Gran Absolute 0.03 0.00 - 0.04 x10(3)/[facility] Blood specimen (specimen) 09/15/2018 9:53 AM EDT 09/15/2018 10:01 AM EDT Narrative Resulting Agency Comment Spec In Lab Tal Eagle MD HEMATOLOGY ORDERA BLES Performing Organization Address City/State/[facility] Co de Phone Number [facility] [place] [address] * (ABNORMAL) Hemogram (09/15/2018 9:53 AM EDT) White Blood Cell 8.4 4.0 - 9.5 x10(3)/[facility] Red Blood Cell 5.44 4.58 - 5.54 x10(6)/[facility] Hemoglobin 16.4 13.7 - 16.5 gm/dL [facility] Hematocrit 48.8(H) 40.5 - 48.5 % [facility] Mean Cell Volume 89.7 82.9 - 93.1 fL [facility] Mean Cell Hemoglobin 30.1 27.5 - 32.1 pg [facility] Mean Cell Hemoglobin Concentration 33.6 32.0 - 35.7 gm/dL [facility] Platelet 272 145 - 357 x10(3)/ L [facility] RDW Standard Deviation 41.9 36.0 - 45.0 fL [facility] RDW coefficient of variation 12.9 11.4 - 13.8 % [facility] Mean Platelet Volume 9.7 7.6 - 12.9 fL [facility] NRBC% auto 0.0 % [facility] NRBC Absolute 0.000 0.000 - 0.000 x10(3)/mc L [facility] Blood specimen (specimen) 09/15/2018 9:53 AM EDT 09/15/2018 10:01 AM EDT Narrative Resulting Agency Comment Spec In Lab Tal Eagle MD HEMATOLOGY ORDERA BLES [facility] [place] [address] * BKV Quant Blood (09/15/2018 9:53 AM EDT) BKV Blood Result Not Detected [facility] BKV Blood Interp BK Virus Plasma Result Interpretation Result: BK Virus not detected Specimen type: plasma Assay Range: 2.80-7.80 log copies/mL (6.28x10^2 - 6.28x10^7 copies/mL) Methods: Quantitative real-time polymerase chain reaction (PCR) of viral DNA isolated from plasma was performed using [employer] BKV analyte-specific reagents and the [employer]om System that automates both nucleic acid isolation [...] [facility] ([facility]) [facility] at [facility]. It has not been cleared or approved by the FDA. The laboratory is regulated under CLIA as qualified to perform high-complexity testing. This test is used for clinical purposes. It should not be regarded as investigational or for research. [facility] Comment: [VERIFIED DATE]09.23.18 Verified By:Tal Cleaning (Electronic Signature) Blood specimen (specimen) 09/15/2018 9:53 AM EDT 09/15/2018 11:12 AM EDT Narrative Resulting Agency Comment Spec In Lab Tal Eagle MD MOLECULAR ORDERAB LES Performing Organization Address [facility]/ZIP Co de Phone Number [facility] [place] [address] * (ABNORMAL) 1,25-dihydroxycholecalciferol (09/15/2018 9:53 AM EDT) Vit D 1,25 Dihydroxy (NOVEMBER) 70(H) 18 - 64 pg/mL [facility] Comment: ADDITIONAL INFORMATION This test was developed and its performance characteristics determined by [facility] in a manner consistent with CLIA requirements. This test has not been cleared or approved by the U.S. Food and Drug Administration. Test Performed by: [facility] [place] [address] [place] [address] Blood specimen (specimen) 09/15/2018 9:53 AM EDT 09/15/2018 1:05 PM EDT Narrative Resulting Agency Comment Spec In Lab Tal Eagle MD LAB SEND OUT ORDE RABLES Performing Organization Address [facility] Co de Phone Number [facility] [place] [address] * (ABNORMAL) CMP w/fasting Glucose (09/15/2018 9:53 AM EDT) Glucose Fasting 151(H) 65 - 99 mg/dL [facility] [...] of Diabetes Mellitus, Position Statement from the [place] [employer]. ??Diabetes Care, Volume 33, Supplement 1, Jul 2009 Blood Urea Nitrogen 18 10 - 20 mg/dL [facility] Creatinine 1.23 0.80 - 1.50 mg/dL [facility] [...] questions. Chloride 97(L) 98 - 107 mmol/L [facility] Carbon Dioxide 32(H) 22 - 31 mmol/L [facility] Anion Gap 11 5 - 15 mmol/L [facility] Calcium 10.0 8.5 - 10.5 mg/dL [facility] Protein, Total 7.7 6.1 - 8.0 gm/dL [facility] Albumin 4.3 3.2 - 5.2 gm/dL [facility] Aspartate Aminotransferase 20 0 - 39 unit/L [facility] Alanine Aminotransferase 22 0 - 55 unit/L [facility] Alkaline Phosphatase 78 40 - 120 unit/L [facility] Bilirubin, Total 2.9(H) 0.2 - 1.3 mg/dL [facility] Est Glomerular Filtration Rate 59(L) >=60 mL/min/1. 73 m?? [facility] Comment: The eGFR was calculated using the CKD-EPI equation. As with all creatinine based estimates of kidney function, eGFR values calculated with the CKD-EPI equation are not accurate in patients with acute kidney failure, extremes of body mass or the acutely ill. http://[employer]/DHnkf eGFR 69 >=60 mL/min/1. 73 m?? [facility] Comment: The eGFR was calculated using the CKD-EPI equation. As with all creatinine based estimates of kidney function, eGFR values calculated with the CKD-EPI equation are not accurate in patients with acute kidney failure, extremes of body mass or the acutely ill. http://[employer]/DHMCnkf Blood specimen (specimen) 09/15/2018 9:53 AM EDT 09/15/2018 10:01 AM EDT Narrative Resulting Agency Comment Spec In Lab Tal Eagle MD CHEMISTRY ORDERAB LES Performing Organization Address [facility] Co de Phone Number [facility] [place] [address] * Gold Tube HOLD (09/15/2018 9:53 AM EDT) Gold Hold Sample in lab. [facility] Blood specimen (specimen) 09/15/2018 9:53 AM EDT 09/15/2018 10:00 AM EDT Tal Eagle MD CHEMISTRY ORDERAB LES Performing Organization Address [facility] Co de Phone Number [facility] [place] [address] * (ABNORMAL) Hemoglobin A1c (09/15/2018 9:53 AM EDT) Hemoglobin A1c 6.6(H) 4.3 - 5.6 % [facility] [...] Mellitus, Diabetes Care 2013; 36: Suppl. 1, C05-75 Estimated Average Glucose See note mg/dL [facility] Comment: Estimated Average Glucose not [...] into estimated average glucose values. ??Diabetes Care 2008:31(8):4392-6944. Blood specimen (specimen) 09/15/2018 9:53 AM EDT 09/15/2018 10:01 AM EDT Narrative Resulting Agency Comment Spec In Lab Tal Eagle MD CHEMISTRY ORDERAB LES Performing Organization Address [facility] Co de Phone Number [facility] [place] [address] * Lavender Tube HOLD (09/15/2018 9:53 AM EDT) Lavender Hold Sample in lab. [facility] Blood specimen (specimen) 09/15/2018 9:53 AM EDT 09/15/2018 10:01 AM EDT Tal Eagle MD HEMATOLOGY ORDERA BLES Performing Organization Address [facility]/State/ZIP Co de Phone Number [facility] [place] [address] * Lipid Panel (09/15/2018 9:53 AM EDT) Cholesterol, Total 151 mg/dL [facility] Comment: Lower Risk: <200 mg/dL Average Risk: 200-239 mg/dL Higher Risk: >vf=623 mg/dL Triglyceride 166 mg/dL [facility] Comment: Average Risk/Lower Risk: <150 mg/dL Borderline High Risk: 150-199 mg/dL High Risk: 200-499 mg/dL Very High Risk: >pz=987 mg/dL HDL Cholesterol 40 mg/dL [facility] Comment: Males: ?? Higher Risk: <40 mg/dL Females: ?? HIgher Risk: <50 mg/dL LDL Cholesterol 78 mg/dL [facility] Comment: Lowest Risk: <100 mg/dL Lower Risk: 100-129 mg/dL Borderline High Risk: 130-159 mg/dL High Risk: 160-189 mg/dL Very High Risk: >os=158 mg/dL Cholesterol/HDL Ratio 3.8 ratio [facility] Lipid Interpretation See Note [facility] Comment: Lipid management should be guided by a patient? s ASCVD risk, goals and preferences. ACC/AHA Guidelines recommend high intensity statin if clinical ASCVD or LDL greater than or equal to 190 mg/dL. http://[employer]surLendsquare.com/HEI-NPC-Cscwsnnmb Adults aged 40-75 with LDL 70-189 mg/dL should have their 10 year ASCVD risk estimated with the ACC/AHA ASCVD risk tankman http://tools.acc.org/CKXJE-Ebit-Ultpalekh/ Statin should be discussed if risk greater [...] MD CHEMISTRY ORDERAB LES Performing Organization Address [facility] Co de Phone Number [facility] [place] [address] * Magnesium (09/15/2018 9:53 AM EDT) Magnesium 0.71 0.69 - 1.07 mmol/L [facility] Blood specimen (specimen) 09/15/2018 9:53 AM EDT 09/15/2018 10:01 AM EDT Narrative Resulting Agency Comment Spec In Lab Tal Eagle MD CHEMISTRY ORDERAB LES Performing Organization Address [facility] de Phone Number [facility] [place] [address] * Phosphorus (09/15/2018 9:53 AM EDT) Phosphorus 3.2 2.5 - 4.5 mg/dL [facility] Blood specimen (specimen) 09/15/2018 9:53 AM EDT 09/15/2018 10:01 AM EDT Narrative Resulting Agency Comment Spec In Lab Tal Eagle MD CHEMISTRY ORDERAB LES Performing Organization Address [facility] Co de Phone Number [facility] [place] [address] * (ABNORMAL) PTH (09/15/2018 9:53 AM EDT) Parathyroid Hormone 78(H) 15 - 65 pg/mL [facility] Blood specimen (specimen) 09/15/2018 9:53 AM EDT 09/15/2018 10:01 AM EDT Narrative Resulting Agency Comment Spec In Lab Tal Eagle MD CHEMISTRY ORDERAB LES Performing Organization Address City/[facility] Co de Phone Number [facility] [place] [address] * Reticulocyte Count (09/15/2018 9:53 AM EDT) Reticulocyte % 2.0 0.7 - 2.6 % [facility] Retic Abs # 0.110 0.030 - 0.120 x10(6)/mcL [facility] Immature Retic% 8.1 0.0 - 15.6 % [facility] Reticulated Hgb 35.9 31.3 - 40.2 pg [facility] Blood specimen (specimen) 09/15/2018 9:53 AM EDT 09/15/2018 10:01 AM EDT Narrative Resulting Agency Comment Spec In Lab Tal Eagle MD HEMATOLOGY ORDERA BLES Performing Organization Address [facility] Number [facility] [place] [address] * Tacrolimus level (09/15/2018 9:53 AM EDT) Tacrolimus 7.8 ng/mL [facility] Comment: Trough therapeutic: ??5-15 ng/mL Performed by ultra-performance liquid chromatography tandem mass spectrometry (UPLCMS/MS). This test was developed and its performance characteristics determined by [facility]. It has not been cleared or approved [...] MD CHEMISTRY ORDERAB LES Performing Organization Address [facility] Co de Phone Number [facility] [place] [address] * Uric acid (09/15/2018 9:53 AM EDT) Uric Acid 8.1 3.5 - 8.5 mg/dL [facility] Blood specimen (specimen) 09/15/2018 9:53 AM EDT 09/15/2018 10:01 AM EDT Narrative Resulting Agency Comment Spec In Lab Tal Eagle MD CHEMISTRY ORDERAB LES Performing Organization Address City/[facility]/ZIP Co de Phone Number [facility] [place] [address] * (ABNORMAL) Vitamin D, 25-Hydroxy (09/15/2018 9:53 AM EDT) Vitamin D Total 25 OH 19(L) 30 - 100 ng/mL [facility] Comment: Deficient <10 ng/mL Insufficient 10 to 29 ng/mL Sufficient 30 to 100 ng/mL Potential Intoxication >100 ng/mL According to the [place] National Osteoporosis Foundation, Vitamin D concentrations >30 ng/mL are sufficient to protect bone health. ??The National Kidney Foundation has similarly stated that patients with Vitamin D concentrations <30ng/mL should be considered to be insufficient or deficient. http://[employer]/nkf-guidelines http://[employer]/nejm-VitD The [employer] Vitamin D Immunoassay detects both 25-OH Vitamin D2 and 25-OH Vitamin D3, but only a total Vitamin D concentration is reported. Blood specimen (specimen) 09/15/2018 9:53 AM EDT 09/15/2018 12:08 PM EDT Narrative Resulting Agency Comment Spec In Lab Tal Eagle MD CHEMISTRY ORDERAB LES Performing Organization Address City/[facility]/ZIP Co de Phone Number [facility] [place] [address] * Urinalysis Microscopic Exam (09/15/2018 9:48 AM EDT) RBC, Urine 1 0 - 3 /HPF [facility] WBC, Urine <1 0 - 3 /HPF [facility] Urine specimen obtained by clean catch procedure (specimen) 09/15/2018 9:48 AM EDT 09/15/2018 9:58 AM EDT Narrative Resulting Agency Comment Spec In Lab Tal Eagle MD URINE ORDERABLES Performing Organization Address [facility] Co de Phone Number [facility] [place] [address] * Calcium Creatinine Ratio, random urine (09/15/2018 9:48 AM EDT) Calcium, Urine 6.5 mg/dL [facility] Creatinine, Urine 117 mg/dL [facility] Calcium / Creatinine Ratio, Urine 0.06 ratio [facility] Urine specimen (specimen) 09/15/2018 9:48 AM EDT 09/15/2018 2:24 PM EDT Narrative Resulting Agency Comment Spec In Lab Tal Eagle MD URINE ORDERABLES Performing Organization Address [facility] de Phone Number [facility] [place] [address] * Magnesium, urine, random (09/15/2018 9:48 AM EDT) Magnesium, Urine 0.84 mmol/L [facility] Urine specimen (specimen) 09/15/2018 9:48 AM EDT 09/15/2018 10:00 AM EDT Narrative Resulting Agency Comment Spec In Lab Tal Eagle MD URINE ORDERABLES Performing Organization Address [facility] Co de Phone Number [facility] [place] [address] * Phosphorus, urine, random (09/15/2018 9:48 AM EDT) Phosphorus, Urine 71.7 mg/dL [facility] Urine specimen (specimen) 09/15/2018 9:48 AM EDT 09/15/2018 2:24 PM EDT Narrative Resulting Agency Comment Spec In Lab Tal Eagle MD URINE ORDERABLES Performing Organization Address City/[facility]/ZIP Co de Phone Number [facility] [place] [address] * (ABNORMAL) Protein/Creatinine Ratio, urine (09/15/2018 9:48 AM EDT) Creatinine, Urine 117 mg/dL [facility] Protein, Urine 153(H) 0 - 12 mg/dL [facility] Protein / Creatinine Ratio, Urine 1.3 ratio [facility] Urine specimen (specimen) 09/15/2018 9:48 AM EDT 09/15/2018 10:00 AM EDT Narrative Resulting Agency Comment Spec In Lab Tal Eagle MD URINE ORDERABLES Performing Organization Address City/[facility] Co de Phone Number [facility] [place] [address] * (ABNORMAL) Urinalysis with reflex Culture (09/15/2018 [...] [facility] pH, Urn (dipstick) 7.0 5.0 - 8.0 [facility] Blood, Urine Dipstick Negative Negative mg/dL [facility] Ketone, Urine Dipstick Negative Negative mg/dL [facility] Nitrite, Urine Dipstick Negative Negative [facility] Leukocytes, Urine Dipstick Negative Negative [facility] Appearance, Urine Dipstick Clear Clear [facility] Specific [place] Urine Automated 1.021 1.002 - 1.030 [facility] Color, Urine Dipstick Yellow Yellow [facility] Reflex to Culture No [facility] Urine specimen obtained by clean catch procedure (specimen) 09/15/2018 9:48 AM EDT 09/15/2018 9:58 AM EDT Narrative Resulting Agency Comment Spec In Lab Tal Eagle MD URINE ORDERABLES [facility] [place] [address] documented in this encounter Visit Diagnoses Diagnosis Kidney replaced by transplant Vitamin D deficiency Unspecified vitamin D deficiency Type 2 diabetes mellitus with complication, without long-term current use of insulin documented in this encounter Care Teams Adult Education Teacher Relationship Specialty Start Date End Date Urbano Denis DO [address] [place] [address] [address] [place] [address] PCP - General 09/03/12 03/17/22 Ruchi Valles RN Nurse Clinic Transplant Surgery 07/30/15 documented as of this encounter
--- OUTSIDE RECORDS SUMMARY | 2024-02-14 11:24 | XMS_ITS | Encounter Summary ---
Author Organization [facility] Address [facility] [place] [address] Care Team Providers Care Musculoskeletal Physiotherapist Name Role Phone Urbano Denis DO Primary Care Provider [phone] Reason for Visit * Reason Comments Abdominal Pain * Auth/Cert Specialty Diagnoses / Procedures Referred By Humberto flor Referred To Contact Diagnoses Hydronephrosis Referral ID Status Reason Start Date Expiration Date Visits Re quested Visits Authorized [id number] 1 1 Encounter Details Date Type Department Care Team (Late st Contact Info) Description 06/16/2018 2:45 PM EST - 06/18/2018 3:00 PM EST Emergency 4 [place] [address] Nick Mendes MD [facility] [place] [address] Ari Lucero MD [facility] [place] [address] Jennifer Amaro MD [facility] [place] [address] H/O kidney transplant; S/P R TKA 11/25/17 Dr. Dale Discharge Disposition: Home Social History Tobacco Use [...] Sign Reading Time Taken Comments Blood Pressure 147/76 06/18/2018 11:43 AM EST Pulse 45 06/17/2018 4:30 PM EST Temperature 36.6 ??C (97.9 ??F) 06/18/2018 11:[address] Respiratory Rate 16 06/18/2018 11:43 AM EST Oxygen Saturation 96% 06/18/2018 11:43 AM EST Inhaled Oxygen Concentration - - [...] Vitamin D deficiency ??? 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 manager terminal current use of 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 drug ??? CAH [...] or rigors on Thursday and presented to [facility] where he was worked up in [...] and emesis on Thursday prior to the [facility] visit.This spontaneously resolved and he has [...] calculus in the ureter of the LEFT FLANDREAU kidney with evidence of proximal hydroureter and [...] (WRVU 2.37) Operative Findings: 1. B/l orthotopic chitina UOs 2. 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 Normal bladder 4. No contrast passed proximally up left chitina ureter, unable to advance wire, distal ureter had been previously ligated Hospital Course: Ethel Akins was admitted to the Transplant Surgery service on 06/16/18 with RIGHT abdominal pain. Work up with CT scan and abdominal US was notable for hydronephrosis of left chitina ureter with 6x10mm stone. No evidence of sepsis or intraperitoneal process with reassuring imag ing/labs, benign abdominal exam and vital signs within normal limits. 06/17/18 the patient was taken to the OR with urology and retrograde ureteropyelogram confirmed, as noted in op report, that the L chitina ureter had been ligated during previous Boari [...] and given to the patient. Patient Instructions [facility] Department of Surgery Discharge Instructions PROCEDURES THIS [...] with the Surgery nurses. The number is [phone]. - During the night or weekends call the [facility] mill operator head at [phone] and ask to speak to the surgery resident salon/spa manager for general surgery. Please note: Your surgeon may not be Children'S Ministry Director, especially during the night or on weekends, so be ready to describe yourself and your surgery when you call. FOLLOW UP You will have an appointment made with the transplant clinic- you will be contacted- please call with any questions Future Appointments Date Time Provider Department Center 06/18/2018 8:00 AM [facility] US ROOM 8 [facility] information via phone/mail in the next week. If you do not hear anything, please call the clinic [phone] to confirm or reschedule. If you need a prior authorization, please call the General Surgery Clinic nurses [phone] for prior authorizations assistance General Instructions Instructions [...] to urinate, please call our office at [phone] before 5PM or [phone] after hours. Call Doctor for: - copious blood or large clots in your urine - you are unable to urinate - severe back or side pain - pain not controlled by oral medications at home - persistent nausea and vomiting - any fever > 101.3F The number for questions is [phone] before 5 PM weekdays and [phone] after 5 PM and weekends. Follow-up Recommendations [...] to urinate, please call our office at [phone] before 5PM or [phone] after hours. Call Doctor for: - copious blood or large clots in your urine - you are unable to urinate - severe back or side pain - pain not controlled by oral medications at home - persistent nausea and vomiting - any fever > 101.3F The number for questions is [phone] before 5 PM weekdays and [phone] after 5 PM and weekends. * Patient Instructions* Jennifer Palmer - 06/17/2018 5:29 PM EST [facility] Department of Surgery Discharge Instructions PROCEDURES THIS [...] with the Surgery nurses. The number is [phone]. - During the night or weekends call the [facility] mill operator head at [phone] and ask to speak to the surgery resident salon/spa manager for general surgery. Please note: Your surgeon may not be Children'S Ministry Director, especially during the night or on weekends, so be ready to describe yourself and your surgery when you call. FOLLOW UP You will have an appointment made with the transplant clinic- you will be contacted- please call with any questions Future Appointments Date Time Provider Department Center 06/18/2018 8:00 AM [facility] ROOM 8 [facility] information via phone/mail in the next week. If you do not hear anything, please call the clinic [phone] to confirm or reschedule. If you need a prior authorization, please call the General Surgery Clinic nurses [phone] for prior authorizations assistance documented in this [...] Amaro MD - 06/18/2018 1:49 PM EST [facility] Transplant Progress Note Patient Name: Ethel Akins : [id number] MR#: [id number] Admit Date: 06/16/2018 2:45 PM Mr. Akins is hospital day #2 following admission for right lower quadrant pain that radiates to the right testicle. I reviewed Dr. Arredondo's operative report yesterday and the records suggested that Dr. Arredondo ligated the left chitina ureter at the patient's Boari flap reconstruction operation that took place in 2015. This was likely to have explained the dilated left chitina kidney collecting system and hydroureter. I contacted [...] which will be his discharge regimen: Prograf 08/06 Cellcept 250 mg po bid ID: Dr. [...] Organ Transplant Program 06/18/2018 * Victor Manuel Mace DO - 06/17/2018 10:03 PM EST POST-OPERATIVE ASSESSMENT Ethel Akins is a 67 y.o. male with a s/p retrograde ureteropyelography for hydronephrosis. Intraoperative findings as follows: 1. B/l orthotopic chitina UOs 2. 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 Normal bladder 4. No contrast passed proximally up left chitina ureter, unable to advance wire, distal ureter [...] edema Lines/Tubes/Drains: - PIV LABS Recent Labs 06/17/18 0619 06/16/18 2154 06/16/18 [...] - Continue post-op plan Victor Manuel Mace, 06/17/18 * Karly Parra RN - 06/17/2018 [...] RLQ abdominal pain, found to have obstructed chitina LEFT ureter with 6x10mm stone 24h/S Reports [...] [91 %-98 %] 06/16 07 - 06/17 0700 In: - Out: 700 [Urine:700] PE: General: AOx3, NAD, conversant HEENT: PERRL, anicteric sclerae Cardiopulm: RRR Abd: soft, nontender, non-distended- benign Skin: warm, dry Neuro: Non-focal, moving all four extremities spontaneously Labs: Recent Labs 06/17/18 0619 06/16/18 2154 06/16/18 [...] pancreas secondary to overlying bowel gas. ?? Joseph See MD Ct Abdomen & Pelvis Wo [...] previously there is severe atrophy of the chitina LEFT kidney.. ?? Transplant kidney: Transplant kidney [...] imaging showing 6x10mm obstructing stone in LEFT chitina ureter. He continues to report R>L Abdominal [...] Bah MD - 06/16/2018 6:16 PM EST [facility] Department of Transplant Surgery Inpatient Consult Note Patient Name: Ethel Akins Patient Age: 67 y.o. Birthdate: 1950 Admit date: 06/16/2018 Attending Physician: Ari Lucero MD REQUESTED BY: ED CONSULTATION QUESTION: Obstruction of L chitina ureter. CC: RLQ abd pain 67??y.o. male [...] EXTREMITY performed by Jennifer Amaro MD at [facility] OR ??? PRO REIMPLANT URETER, SINGLE URETER Left 05/20/2016 @URETERONEOCYSTOSTOMY ANASTOMOSIS OF SINGLE URETER TO BLADDER performed by Santosh Arredondo MD at [facility] OR ??? PRO REIMPLANT URETER, SINGLE URETER N/A 05/20/2016 @URETERONEOCYSTOSTOMY ANASTOMOSIS OF SINGLE URETER TO BLADDER performed by Jennifer Amaro MD at [facility] OR ??? PRO TOTAL KNEE ARTHROPLASTY Right 11/25/2017 TOTAL KNEE ARTHROPLASTY (WRVU 20.72) performed by Breezy Dale MD at [facility] OR ??? PRO TRANSPLANT, PREP CADAVER RENAL GRAFT N/A 09/16/2015 @PREPARATION CADAVERIC RENAL ALLOGRAFT performed by Franko Larkin MD at [facility] OR ??? PRO TRANSPLANTATION OF KIDNEY N/A 09/16/2015 @KIDNEY TRANSPLANT, WITHOUT RECIPIENT NEPHRECTOMY performed by Franko Larkin MD at [facility] OR Family History: Family History Problem Relation [...] on CT is a 6x10mm obstructing L chitina ureteral stone with new hydronephrosis. His appendix [...] or rigors on Thursday and presented to [facility] where he was worked up in their emergency department and received aRUQ US that did not demonstrate evidence of acute cholecystitis or a dilated biliary system. He wasdischarged home the same day and continued to experience low level gnawing pain in the RLQ that was in a 4-5 range. He had one episode of nausea and emesis on Thursday prior to the [facility] visit. This spontaneously resolved and he [...] calculus in the ureter of the LEFT FLANDREAU kidney with evidence of proximal hydroureter and hydronephrosis. There is no gas in the collecting system proximal to this obstruction. Review of Dr. Arredondo's 05/2016 operative report indicates that the left chitina ureter was ligated at that procedure which [...] need for therapy of the dilated left chitina kidney tract in the setting of the left chitina kidney ureter ligation in 2016. This is [...] home doses. Will verify this with the post-log operations coordinator team. Tacrolimus trough level pending and [...] PMH significant for hx of HCV (s/p Harvoni), DM (on glipizide), HTN (not currently on any medications), hypothyroidism and donor kidney transplant 09/16/15 (on Prograf/Cellcept) who presents to the Emergency Department with RLQ pain. Patient states that Thursday he presented to [facility] with what he thought was appendicitis; he states that he they diagnosed him with a gallstone via MRI. Went to PCP yesterday who told him to go to the hospital if symptoms returned. States that the pain in in RLQ and radiates to right testicle, is constant, and cannot identify exacerbating/relieving factors. States 4-11/12. Has not had pain like this before. Had 2x cup coffee and [place] citizen muffin today, but states that appetite has [...] previously there is severe atrophy of the chitina LEFT kidney.. ?? Transplant kidney: Transplant kidney [...] mm renal calculous and new hydronephrosis in chitina kidney. He was seen by transplant medicine [...] residual kidney stone and obstruction in his chitina kidney on the left. Because of the tenuous nature of his transplant the transplant service would like to admit him. documented in this encounter Miscellaneous Notes * Op Note - Edinson Grider III, MD - 06/17/2018 3:45 PM EST [facility] Operative Note Patient Name: Ethel Akins : [id number] MR#: [id number] Case Date: 06/17/2018 Surgeon: Surgeon(s) and Role: * Edinson Grider III, MD - Primary * Shin Elam MD - Resident-Surgeon Chief Preoperative diagnosis: Hydronephrosis Postoperative diagnosis: Hydronephrosis Procedure(s) (LRB): CYSTO, RETROGRADE, URETEROPYELOGRAPHY (WRVU 2.37) (Left) Findings: 1. B/l orthotopic chitina UOs 2. 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 Normal bladder 4. No contrast passed proximally up left chitina ureter, unable to advance wire, distal ureter [...] bladder. 360 degree cystoscopy revealed b/l orthotopic chitina UOs and a widely patient reimplant ureter/Boari [...] an incidental finding of a hydronephrotic left chitina kidney with a 6 x 10 mid [...] Health/Prescription Coverage: Primary Insurance: MEDICARE Secondary Insurance: [employer] [facility] Prescription Coverage: Yes; can manage minimal out of pocket co-pays. Preferred Pharmacy: [facility]; mails prescriptions to pt's home. Primary Care Provider: Urbano Denis DO [phone] Patient/Caregiver Goals of Treatment: Effective pain management; effective stent placement with lessoning of hydronephrosis. Potential Needs for Transition of Care: Rehab/SNF: no Home Health: no DME: Owns a cane, fww. Dialysis: no Community Resources: None offered. Transportation: Pt drove himself to [facility] yesterday; car here; he plans to drive himself home. Anticipated Barriers to Discharge/Special Considerations: None. Assessment: Pt admitted from the ED after complaining of right abdominal pain. CT of abdomen showed, normal left lower quadrant transplant kidney but a 6 x 10 mm obstructing stone in the mid to distal ureter with marketed hydronephrosis of the left chitina kidney. Plan: Pt going to OR today for placement of left ureteral stent. [facility]. Pt does not need any home services at time of interview. A member of the Care Management team will continue to monitor progress, follow for continuity of care and assist with transition of care planning. Giovanna Haro RN Pager: [phone] * Consult Note - Tal Chen MD [...] ureter with marketed hydronephrosis of the left chitina kidney. Urology was consulted for obstructing ureteral stone of chitina left kidney in the setting of immunosuppression [...] EXTREMITY performed by Jennifer Amaro MD at [facility] OR ??? PRO REIMPLANT URETER, SINGLE URETER Left 05/20/2016 @URETERONEOCYSTOSTOMY ANASTOMOSIS OF SINGLE URETER TO BLADDER performed by Santosh Arredondo MD at [facility] OR ??? PRO REIMPLANT URETER, SINGLE URETER N/A 05/20/2016 @URETERONEOCYSTOSTOMY ANASTOMOSIS OF SINGLE URETER TO BLADDER performed by Jennifer Amaro MD at [facility] OR ??? PRO TOTAL KNEE ARTHROPLASTY Right 11/25/2017 TOTAL KNEE ARTHROPLASTY (WRVU 20.72) performed by Breezy Dale MD at [facility] OR ??? PRO TRANSPLANT, PREP CADAVER RENAL GRAFT N/A 09/16/2015 @PREPARATION CADAVERIC RENAL ALLOGRAFT performed by Franko Larkin MD at [facility] OR ??? PRO TRANSPLANTATION OF KIDNEY N/A 09/16/2015 @KIDNEY TRANSPLANT, WITHOUT RECIPIENT NEPHRECTOMY performed by Franko Larkin MD at [facility] OR No current facility-administered medications on file [...] 274 270 278 Recent Labs 06/17/18 0619 06/16/184 06/16/18 1605 NA 139 139 139 K 3.5 3.4* Not Perf CL 102 101 99 CO2 25 24 28 BUN 14 14 17 CREATININE 1.20 1.12 1.24 GLUCOSE 108 99 93 CALCIUM 8.8 8.9 9.3 MAGNESIUM 0.70 0.61* -- PHOS 2.8 2.9 -- No results for input(s): PT, PTT, INR in the last 168 hours. Recent Labs 06/17/18 0606/16/18215306/16/18 1605 BILITOT 2.8* 2.3* 2.0* AST 16 [...] previously there is severe atrophy of the chitina LEFT kidney.. ?? Transplant kidney: Transplant kidney [...] an incidental finding of a hydronephrotic left chitina kidney with a 6 x 10 mid [...] However, the patient has an obstructed left chitina kidney and is on immunosuppression.Therefore, we would [...] feels that ureteral stent placement for left chitina kidney decompression isindicated at this time give [...] Chen MD, MPH Urology, PGY-2 Consult Pager #[phone] 06/17/2018 * Plan of Care - Ozzy Mccormick RN - 06/17/2018 4:09 AM EST Problem: Patient Care Overview Goal: Plan of Care Review Outcome: Ongoing (Interventions Implemented as Appropriate) 06/17/18 040 Coping/Psychosocial Plan Of Care Reviewed With patient [...] Handling Outcome: Ongoing (Interventions Implemented as Appropriate) 06/17/18 0403 Restraint Interventions Safety Promotion/Fall Prevention activity supervised;safety [...] Conf Outcome: Ongoing (Interventions Implemented as Appropriate) 06/17/18402 Interdisciplinary Rounds/Family Conf Participants case fitter;physician;pharmacy * Consult Note - Tal Chen MD - 06/16/2018 6:52 PM EST Images from the original note were not included. UROLOGY INPATIENT CONSULT NOTE CONSULT REQUESTED BY Ari Lucero MD HPI Ehtel Akins is a 67 y.o. male with [...] ureter with marketed hydronephrosis of the left chitina kidney. Urology was consulted for obstructing ureteral stone of chitina left kidney in the setting of immunosuppression [...] EXTREMITY performed by Jennifer Amaro MD at [facility] OR ??? PRO REIMPLANT URETER, SINGLE URETER Left 05/20/2016 @URETERONEOCYSTOSTOMY ANASTOMOSIS OF SINGLE URETER TO BLADDER performed by Santosh Arredondo MD at [facility] OR ??? PRO REIMPLANT URETER, SINGLE URETER N/A 05/20/2016 @URETERONEOCYSTOSTOMY ANASTOMOSIS OF SINGLE URETER TO BLADDER performed by Jennifer Amaro MD at [facility] OR ??? PRO TOTAL KNEE ARTHROPLASTY Right 11/25/2017 TOTAL KNEE ARTHROPLASTY (WRVU 20.72) performed by Breezy Dale MD at [facility] OR ??? PRO TRANSPLANT, PREP CADAVER RENAL GRAFT N/A 09/16/2015 @PREPARATION CADAVERIC RENAL ALLOGRAFT performed by Franko Larkin MD at [facility] OR ??? PRO TRANSPLANTATION OF KIDNEY N/A 09/16/2015 @KIDNEY TRANSPLANT, WITHOUT RECIPIENT NEPHRECTOMY performed by Franko Larkin MD at [facility] OR No current facility-administered medications on file [...] previously there is severe atrophy of the chitina LEFT kidney.. ?? Transplant kidney: Transplant kidney [...] an incidental finding of a hydronephrotic left chitina kidney with a 6 x 10 mid [...] However, the patient has an obstructed left chitina kidney and is on immunosuppression.Therefore, we would [...] Chen MD, MPH Urology, PGY-2 Consult Pager #[phone] 06/16/2018 Associated attestation - Fermin Whitney MD - 06/18/2018 7:33 AM EST I have seen the patient and reviewed the resident's above history and I agree with the details as written. The assessment and plan were formulated in discussion with me and I agree with them as documented. In discussion with Dr. Amaro, it sounds like his left chitina ureter was ligated during repair ofhis necrotic [...] AM EDT Hospital Encounter [place] [address] Arrived documented as of this encounter Goals Goal Patient Goal Type Associated Problems Recent Progress Patient-Stated? Author DH Home Medication Compliance and Understanding Patient Facing Action Plan On track( 017 10:41 AM EDT) No Selena Cisneros, [facility] Note: Patient Goal: Clear [...] AM EST) HCV Viral Load <12 IU/mL [facility] HCV Viral Load Result: <12 IU/mL (Target Not Detected) Indication for Study: Hepatitis C Infection Analysis: The [employer] RealTime HCV assay is an in vitro reverse geriatric nurse assistant polymerase chain reaction (RT-PCR)for the quantitation of hepatitis C viral (HCV) RNA in human serum or plasma (EDTA) from HCV-infected individuals. Sample: plasma (0.7 mL minimum volume) Method: [employer]ks RealTime HCV Assay Linear Range: 12 IU/mL - 100,000,000IU/mL Note: The [employer] RealTime HCV Assay has been approved by the U.S. Food and Drug Administration. [facility] Comment: [VERIFIED DATE]06.23.18 Verified By:Nella Evans (Electronic Signature) Blood specimen (specimen) 06/18/2018 11:07 AM EST 06/21/2018 11:26 AM EST Narrative Resulting Agency Comment Spec In Lab Jennifer JENNINGS [facility] Organization Address City/State/ZIP Co de Phone Number [facility] [place] [address] * [place] Scrotum (06/18/2018 8:45 AM EST) [...] 09:31 am) PATIENT INFO: ID #: ? [id number] ?: ??[birth year] (67 yrs) Name: ? ETHEL Gomez MABLE ?Visit Date: 06/18/2018 08:42 am PERFORMED BY: Performed By: ? Osmar Dowd RDMS Attending: ?Kristen GERBER, Valencia Almonte Resident: ? Patricia Malik DO Referred By: ?JENNIFER AMARO Location: ? [place] SERVICE(S) PROVIDED: ??[facility] - Scrotum and Contents with Limited Vascular ?[id number], [id number] ??evaluation - [id number] INDICATIONS: ??RLQ and scrotal pain RIGHT TESTICLE: [...] 06/18/2018 09:31 am) PATIENT INFO: ID #: [id number] : [birth year] (67 yrs) Name: ETHEL Patricia AKINS Visit Date: 06/18/2018 08:42 am PERFORMED BY: Performed By: Osmar Dowd RDMS Attending: Valencia Carson MD Resident: Patricia Malik DO Referred By: JENNIFER AMARO Location: [place] SERVICE(S) PROVIDED: [facility] - Scrotum and Contents with Limited Vascular 49581, 39743 evaluation - [id number] INDICATIONS: RLQ and scrotal pain RIGHT TESTICLE: [...] Report 06/18/2018 09:31 am Jennifer Amaro MD IMG US GEN ORD ERABLES * Differential, Automated (06/18/2018 5:53 AM EST) Neutrophil % 61.9 % [facility] Neutrophil Absolute 4.45 1.70 - 6.10 x10(3)/[facility] Lymph % 23.8 % [facility] Lymphocytes Abs 1.7 0.9 - 3.2 x10(3)/[facility] Monocyte % 8.4 % [facility] Monocyte Abs 0.6 0.3 - 0.9 x10(3)/[facility] LAB[facility] Eos % 4.5 % [facility] Eosinophils Abs 0.3 0.0 - 0.4 x10(3)/[facility] Basophil % 1.0 % [facility] Baso Absolute 0.1 0.0 - 0.1 x10(3)/[facility] Immature Gran % 0.40 % [facility] Comment: Immature granulocytes(IG's)percentage and absolute count will include metamyelocytes, myelocytes, and promyelocytes. Blood smears from CBCs yielding IG's will be scanned manually for concordance. If this scan disagrees with the automated IG or if promyelocytes are noted, a manual differential will be performed. Immature Gran Absolute 0.03 0.00 - 0.04 x10(3)/[facility] Blood specimen (specimen) 06/18/2018 5:53 AM EST 06/18/2018 6:13 AM EST Narrative Resulting Agency Comment Spec In Lab Jennifer Palmer MD HEMATOLOGY OR DERABLES [facility] [place] [address] * Hemogram (06/18/2018 5:53 AM EST) White Blood Cell 7.2 4.0 - 9.5 x10(3)/[facility] LAB[facility] Red Blood Cell 5.13 4.58 - 5.54 x10(6)/[facility] Hemoglobin 15.6 13.7 - 16.5 gm/dL [facility] Hematocrit 45.5 40.5 - 48.5 % [facility] Mean Cell Volume 88.7 82.9 - 93.1 fL [facility] Mean Cell Hemoglobin 30.4 27.5 - 32.1 pg [facility] Mean Cell Hemoglobin Concentration 34.3 32.0 - 35.7 gm/dL [facility] Platelet 259 145 - 357 x10(3)/[facility] RDW Standard Deviation 42.3 36.0 - 45.0 [facility] RDW coefficient of variation 13.0 11.4 - 13.8 % [facility] Mean Platelet Volume 9.8 7.6 - 12.9 [facility] NRBC% auto 0.0 % [facility] NRBC Absolute 0.000 0.000 - 0.000 x10(3)/[facility] LABORATORY Blood specimen (specimen) 06/18/2018 5:53 AM EST 06/18/2018 6:13 AM EST Narrative Resulting Agency Comment Spec In Lab Jennifer Palmer MD HEMATOLOGY OR DERABLES [facility] [place] [address] * Phosphorus (06/18/2018 5:53 AM EST) Pathologist [facility] Phosphorus 3.3 2.5 - 4.5 mg/dL [facility] Blood specimen (specimen) 06/18/2018 5:53 AM EST 06/18/2018 6:13 AM EST Narrative Resulting Agency Comment Spec In Lab Jennifer Amaro MD CHEMISTRY ORDE DICK Performing Organization Address City/[facility]/ZIP Co de Phone Number [facility] [place] [address] * Magnesium (06/18/2018 5:53 AM EST) [facility] Magnesium 0.72 0.69 - 1.07 mmol/L [facility] Blood specimen (specimen) 06/18/2018 5:53 AM EST 06/18/2018 6:13 AM EST Narrative Resulting Agency Comment Spec In Lab Jennifer Amaro MD CHEMISTRY ORDTiny JENNINGS Performing Organization Address City/[facility]/ZIP Co de Phone Number [facility] [place] [address] * (ABNORMAL) Comprehensive metabolic panel (non-fasting) (06/18/2018 5:53 AM EST) Pathologist [facility] Glucose 113 65 - 199 mg/dL [facility] Comment:Diabetes: >=200 mg/d L plus symptoms Blood Urea Nitrogen 18 10 - 20 mg/dL [facility] Creatinine 1.34 0.80 - 1.50 mg/dL [facility] Sodium 139 135 - 145 mmol/L [facility] Potassium 3.6 3.5 - 5.0 mmol/L [facility] Comment: Please note: ??Patients with WBC >100,000 may have falsely elevated Potassium levels. ??For accurate Potassium quantification in these patients send serum separator tube (gold top) for subsequent determinations. ??Contact the Clinical Chemistry Laboratory if there are any questions. Chloride 102 98 - 107 mmol/L [facility] Carbon Dioxide 25 22 - 31 mmol/L [facility] Anion Gap 12 5 - 15 mmol/L [facility] Calcium 8.8 8.5 - 10.5 mg/dL [facility] Protein, Total 6.4 6.1 - 8.0 gm/dL [facility] Albumin 3.5 3.2 - 5.2 gm/dL [facility] Aspartate Aminotransferase 14 0 - 39 unit/L [facility] Alanine Aminotransferase 14 0 - 55 unit/L [facility] Alkaline Phosphatase 61 40 - 120 unit/L [facility] Bilirubin, Total 2.7(H) 0.2 - 1.3 mg/dL [facility] Est Glomerular Filtration Rate 54(L) >=60 mL/min/1. 73 m?? [facility] Comment: The eGFR was calculated using the CKD-EPI equation. As with all creatinine based estimates of kidney function, eGFR values calculated with the CKD-EPI equation are not accurate in patients with acute kidney failure, extremes of body mass or the acutely ill. http://[employer]/[facility] eGFR 62 >=60 mL/min/1. 73 m?? [facility] Comment: The eGFR was calculated using the CKD-EPI equation. As with all creatinine based estimates of kidney function, eGFR values calculated with the CKD-EPI equation are not accurate in patients with acute kidney failure, extremes of body mass or the acutely ill. http://[employer]/DHnkf Blood specimen (specimen) 06/18/2018 5:53 AM EST 06/18/2018 6:13 AM EST Narrative Resulting Agency Comment Spec In Lab Jennifer Amaro MD CHEMISTRY ROCHELLE JENNINGS [facility] Organization Address City/State/ZIP Co de Phone Number [facility] [place] [address] * XR Fluoro No Rad <1Hr - OR Use (06/17/2018 4:05 PM EST) Narrative RAD - 06/17/2018 4:05 PM EST This order does not need a radiologist interpretation. ?? Jennifer Amaro MD IMG FLUORO ORD ERABLES Performing Organization Address City/[facility] Co de Phone Number [place], [place] * ABORH Recheck Status (06/17/2018 1:51 PM EST) ABORH Type Recheck Completed [facility] Blood specimen (specimen) 06/17/2018 1:51 PM EST 06/17/2018 3:10 PM EST Narrative Resulting Agency Comment Spec In Lab Jennifer Amaro MD BLOOD BANK LAB ORDERABLES Performing Organization Address [facility] Co de Phone Number [facility] [place] [address] * Antibody screen (06/17/2018 1:51 PM EST) Ab Screen Interp Negative [facility] Expires at [id number] on: 06/20/2018 [facility] Blood specimen (specimen) 06/17/2018 1:51 PM EST 06/17/2018 3:10 PM EST Narrative Resulting Agency Comment Spec In Lab Jennifer Amaro MD BLOOD BANK LAB ORDERABLES Performing Organization Address [facility] Co de Phone Number [facility] [place] [address] * ABO/Rh Typing (06/17/2018 1:51 PM EST) ABORH Type AB Pos [facility] Blood specimen (specimen) 06/17/2018 1:51 PM EST 06/17/2018 3:10 PM EST Narrative Resulting Agency Comment Spec In Lab Jennifer Amaro MD BLOOD BANK LAB ORDERABLES Performing Organization Address City/[facility]/ZIP Co de Phone Number [facility] [place] [address] * Tacrolimus level (06/17/2018 8:50 AM EST) Tacrolimus 5.2 ng/mL [facility] Comment: Trough therapeutic: ??5-15 ng/mL Performed by ultra-performance liquid chromatography tandem mass spectrometry (UPLCMS/MS). This test was developed and its performance characteristics determined by [facility]. It has not been cleared [...] Lucero MD CHEMISTRY ORDERABLES Performing Organization Address [facility] de Phone Number [facility] [place] [address] * Lipase (06/17/2018 6:19 AM EST) Lipase 25 0 - 60 unit/L [facility] Blood specimen (specimen) 06/17/2018 6:19 AM EST 06/17/2018 6:40 AM EST Narrative Resulting Agency Comment Spec In Lab Jennifer Amaro MD CHEMISTRY ORDTiny RABLENORE Performing Organization Address [facility] Co de Phone Number [facility] [place] [address] * Amylase (06/17/2018 6:19 AM EST) Amylase 29 28 - 100 unit/L [facility] Blood specimen (specimen) 06/17/2018 6:19 AM EST 06/17/2018 6:39 AM EST Narrative Resulting Agency Comment Spec In Lab Jennifer Amaro MD CHEMISTRY ORDE RABLENORE Performing Organization Address [facility]/ZIP Co de Phone Number [facility] [place] [address] * Phosphorus (06/17/2018 6:19 AM EST) Pathologist [facility] Phosphorus 2.8 2.5 - 4.5 mg/dL [facility] Blood specimen (specimen) 06/17/2018 6:19 AM EST 06/17/2018 6:39 AM EST Narrative Resulting Agency Comment Spec In Lab Jennifer Amaro MD CHEMISTRY ORDTiny JENNINGS Performing Organization Address [facility] Co de Phone Number [facility] [place] [address] * Magnesium (06/17/2018 6:19 AM EST) Pathologist [facility] Magnesium 0.70 0.69 - 1.07 mmol/L [facility] Blood specimen (specimen) 06/17/2018 6:19 AM EST 06/17/2018 6:39 AM EST Narrative Resulting Agency Comment Spec In Lab Jennifer Amaro MD CHEMISTRY ROCHELLE JENNINGS Performing Organization Address [facility] Co de Phone Number [facility] [place] [address] * (ABNORMAL) Comprehensive metabolic panel (non-fasting) (06/17/2018 6:19 AM EST) Pathologist [facility] Glucose 108 65 - 199 mg/dL [facility] Comment:Diabetes: >=200 mg/d L plus symptoms Blood Urea Nitrogen 14 10 - 20 mg/dL [facility] Creatinine 1.20 0.80 - 1.50 mg/dL [facility] Sodium 139 135 - 145 mmol/L [facility] Potassium 3.5 3.5 - 5.0 mmol/L [facility] Comment: Please note: ??Patients with WBC >100,000 may have falsely elevated Potassium levels. ??For accurate Potassium quantification in these patients send serum separator tube (gold top) for subsequent determinations. ??Contact the Clinical Chemistry Laboratory if there are any questions. Chloride 102 98 - 107 mmol/L [facility] Carbon Dioxide 25 22 - 31 mmol/L [facility] Anion Gap 12 5 - 15 mmol/L [facility] Calcium 8.8 8.5 - 10.5 mg/dL [facility] Protein, Total 6.5 6.1 - 8.0 gm/dL [facility] Albumin 3.4 3.2 - 5.2 gm/dL [facility] Aspartate Aminotransferase 16 0 - 39 unit/L [facility] Alanine Aminotransferase 17 0 - 55 unit/L [facility] Alkaline Phosphatase 64 40 - 120 unit/L [facility] Bilirubin, Total 2.8(H) 0.2 - 1.3 mg/dL [facility] Est Glomerular Filtration Rate 61 >=60 mL/min/1. 73 m?? [facility] Comment: The eGFR was calculated using the CKD-EPI equation. As with all creatinine based estimates of kidney function, eGFR values calculated with the CKD-EPI equation are not accurate in patients with acute kidney failure, extremes of body mass or the acutely ill. http://[employer]/DHMCnkf eGFR 71 >=60 mL/min/1. 73 m?? [facility] Comment: The eGFR was calculated using the CKD-EPI equation. As with all creatinine based estimates of kidney function, eGFR values calculated with the CKD-EPI equation are not accurate in patients with acute kidney failure, extremes of body mass or the acutely ill. http://[employer]/DHMCnkf Blood specimen (specimen) 06/17/2018 6:19 AM EST 06/17/2018 6:39 AM EST Narrative Resulting Agency Comment Spec In Lab Jennifer Amaro MD CHEMISTRY ROCHELLE David Organization Address City/State/ZIP Co de Phone Number [facility] [place] [address] * Hemogram (06/17/2018 6:19 AM EST) White Blood Cell 7.6 4.0 - 9.5 x10(3)/[facility] LABORATORY Red Blood Cell 5.13 4.58 - 5.54 x10(6)/[facility] LABORATORY Hemoglobin 15.9 13.7 - 16.5 gm/dL [facility] Hematocrit 45.6 40.5 - 48.5 % [facility] Mean Cell Volume 88.9 82.9 - 93.1 [facility] LABORATORY Mean Cell Hemoglobin 31.0 27.5 - 32.1 pg [facility] Mean Cell Hemoglobin Concentration 34.9 32.0 - 35.7 gm/dL [facility] Platelet 274 145 - 357 x10(3)/[facility] LABORATORY RDW Standard Deviation 42.4 36.0 - 45.0 [facility] LABORATORY RDW coefficient of variation 13.0 11.4 - 13.8 % [facility] Mean Platelet Volume 9.8 7.6 - 12.9 [facility] LABORATORY NRBC% auto 0.0 % [facility] NRBC Absolute 0.000 0.000 - 0.000 x10(3)/[facility] LABORATORY Blood specimen (specimen) 06/17/2018 6:19 AM EST 06/17/2018 6:40 AM EST Narrative Resulting Agency Comment Spec In Lab Jennifer Amaro MD HEMATOLOGY ORD ERABLES [facility] [place] [address] * Lipase (06/16/2018 9:54 PM EST) Lipase 44 0 - 60 unit/L [facility] Blood specimen (specimen) 06/16/2018 9:54 PM EST 06/16/2018 10:03 PM EST Narrative Resulting Agency Comment Spec In Lab Ari Lucero MD CHEMISTRY ORDERABLES Performing Organization Address City/[facility]/ZIP Co de Phone Number [facility] [place] [address] * Phosphorus (06/16/2018 9:54 PM EST) Phosphorus 2.9 2.5 - 4.5 mg/dL [facility] Blood specimen (specimen) 06/16/2018 9:54 PM EST 06/16/2018 10:03 PM EST Narrative Resulting Agency Comment Spec In Lab Ari Lucero MD CHEMISTRY ORDERABLES Performing Organization Address [facility] Co de Phone Number [facility] [place] [address] * (ABNORMAL) Magnesium (06/16/2018 9:54 PM EST) Magnesium 0.61(L) 0.69 - 1.07 mmol/L [facility] Blood specimen (specimen) 06/16/2018 9:54 PM EST 06/16/2018 10:03 PM EST Narrative Resulting Agency Comment Spec In Lab Ari Lucero MD CHEMISTRY ORDERABLES Performing Organization Address City/[facility]/ZIP Co de Phone Number [facility] [place] [address] * Amylase (06/16/2018 9:54 PM EST) Amylase 34 28 - 100 unit/L [facility] Blood specimen (specimen) 06/16/2018 9:54 PM EST 06/16/2018 10:03 PM EST Narrative Resulting Agency Comment Spec In Lab Ari Lucero MD CHEMISTRY ORDERABLES Performing Organization Address City/[facility]/ZIP Co de Phone Number [facility] [place] [address] * Hemogram (06/16/2018 9:54 PM EST) White Blood Cell 9.2 4.0 - 9.5 x10(3)/[facility] LABORATORY Red Blood Cell 5.25 4.58 - 5.54 x10(6)/[facility] LABORATORY Hemoglobin 15.7 13.7 - 16.5 gm/dL [facility] Hematocrit 44.8 40.5 - 48.5 % [facility] Mean Cell Volume 85.3 82.9 - 93.1 fL [facility] Mean Cell Hemoglobin 29.9 27.5 - 32.1 pg [facility] Mean Cell Hemoglobin Concentration 35.0 32.0 - 35.7 gm/dL [facility] Platelet 270 145 - 357 x10(3)/[facility] LABORATORY RDW Standard Deviation 39.4 36.0 - 45.0 [facility] LABORATORY RDW coefficient of variation 12.9 11.4 - 13.8 % [facility] Mean Platelet Volume 9.5 7.6 - 12.9 [facility] LABORATORY NRBC% auto 0.0 % [facility] NRBC Absolute 0.000 0.000 - 0.000 x10(3)/[facility] LABORATORY Blood specimen (specimen) 06/16/2018 9:54 PM EST 06/16/2018 10:03 PM EST Narrative Resulting Agency Comment Spec In Lab Ari Lucero MD HEMATOLOGY ORDERABLE S [facility] [place] [address] * (ABNORMAL) Comprehensive metabolic panel (non-fasting) (06/16/2018 9:54 PM EST) [facility] Glucose 99 65 - 199 mg/dL [facility] Comment:Diabetes: >=200 mg/d L plus symptoms Blood Urea Nitrogen 14 10 - 20 mg/dL [facility] Creatinine 1.12 0.80 - 1.50 mg/dL [facility] Sodium 139 135 - 145 mmol/L [facility] Potassium 3.4(L) 3.5 - 5.0 mmol/L [facility] Comment: Please note: ??Patients with WBC >100,000 may have falsely elevated Potassium levels. ??For accurate Potassium quantification in these patients send serum separator tube (gold top) for subsequent determinations. ??Contact the Clinical Chemistry Laboratory if there are any questions. Chloride 101 98 - 107 mmol/L [facility] Carbon Dioxide 24 22 - 31 mmol/L [facility] Anion Gap 14 5 - 15 mmol/L [facility] Calcium 8.9 8.5 - 10.5 mg/dL [facility] Protein, Total 6.8 6.1 - 8.0 gm/dL [facility] Albumin 3.6 3.2 - 5.2 gm/dL [facility] Aspartate Aminotransferase 17 0 - 39 unit/L [facility] Alanine Aminotransferase 16 0 - 55 unit/L [facility] Alkaline Phosphatase 65 40 - 120 unit/L [facility] Bilirubin, Total 2.3(H) 0.2 - 1.3 mg/dL [facility] Est Glomerular Filtration Rate 67 >=60 mL/min/1. 73 m?? [facility] Comment: The eGFR was calculated using the CKD-EPI equation. As with all creatinine based estimates of kidney function, eGFR values calculated with the CKD-EPI equation are not accurate in patients with acute kidney failure, extremes of body mass or the acutely ill. http://[employer]/[facility] eGFR 77 >=60 mL/min/1. 73 m?? [facility] Comment: The eGFR was calculated using the CKD-EPI equation. As with all creatinine based estimates of kidney function, eGFR values calculated with the CKD-EPI equation are not accurate in patients with acute kidney failure, extremes of body mass or the acutely ill. http://[employer]/[facility] Blood specimen (specimen) 06/16/2018 9:54 PM EST 06/16/2018 10:03 PM EST Narrative Resulting Agency Comment Spec In Lab Ari Lucero MD CHEMISTRY ORDERABLES Performing Organization Address [facility] Co de Phone Number [facility] [place] [address] * Blood culture (06/16/2018 6:51 PM EST) Blood Culture No growth at 5 days. [facility] Blood specimen (specimen) 06/16/2018 6:51 PM EST 06/16/2018 7:55 PM EST Comment:RH Narrative Resulting Agency Comment Spec In Lab Ari Lucero MD MICROBIOLOGY - BLOOD ORDERABLES Performing Organization Address [facility] Phone Number [facility] [place] [address] * Blood culture (06/16/2018 6:35 PM EST) Blood Culture No growth at 5 days. [facility] Blood specimen (specimen) 06/16/2018 6:35 PM EST 06/16/2018 7:50 PM EST Comment:RAC Narrative Resulting Agency Comment Spec In Lab Ari Lucero MD MICROBIOLOGY - BLOOD ORDERABLES Performing Organization Address [facility] Phone Number [facility] [place] [address] * Urinalysis Microscopic Exam (06/16/2018 6:33 PM EST) RBC, Urine 2 0 - 3 /HPF [facility] WBC, Urine <1 0 - 3 /HPF [facility] Urine specimen obtained by clean catch procedure (specimen) 06/16/2018 6:33 PM EST 06/16/2018 7:10 PM EST Narrative Resulting Agency Comment Spec In Lab Giovanna Arriola MD URINE ORDERABLES Performing Organization Address [facility] Co de Phone Number [facility] [place] [address] * Urine Hold (06/16/2018 6:33 PM EST) Hold, Urine Sample in lab. [facility] Urine specimen (specimen) Urine / Unknown 06/16/2018 6:33 PM EST 06/16/2018 7:11 PM EST Giovanna Arriola MD URINE ORDERABLES Performing Organization Address City/[facility]/ZIP Co de Phone Number [facility] [place] [address] * (ABNORMAL) Urine culture Clean Catch Urine (06/16/2018 6:33 PM EST) Pathologist [facility] Urine Culture 1,000-9,000 cfu/ml Gram Positive organisms , probable contaminant(A ) [facility] Urine specimen obtained by clean catch procedure (specimen) 06/16/2018 6:33 PM EST 06/16/2018 7:48 PM EST Narrative Resulting Agency Comment Spec In Lab Ari Lucero MD MICROBIOLOGY - GENER AL ORDERABLES Performing Organization Address [facility]/ZIP Co de Phone Number [facility] [place] [address] * (ABNORMAL) Urinalysis with reflex Culture (06/16/2018 6:33 PM EST) Glucose, Urine Dipstick Negative Negative mg/dL [facility] Protein, Urine Dipstick 30(A) Negative mg/dL [facility] Bilirubin, Urine Dipstick Negative Negative mg/dL [facility] Comment: Clinical correlation required for positive Urine Bilirubin results as false positive may occur with some drugs and drug related products. If a false positive is suspected a serum total bilirubin should be considered if clinically indicated. Urobilinogen, Urine Dipstick Normal Normal mg/dL [facility] pH, Urn (dipstick) 7.0 5.0 - 8.0 [facility] Blood, Urine Dipstick Negative Negative mg/dL [facility] Ketone, Urine Dipstick Negative Negative mg/dL [facility] Nitrite, Urine Dipstick Negative Negative [facility] Leukocytes, Urine Dipstick Negative Negative [facility] Appearance, Urine Dipstick Clear Clear [facility] Specific [place] Urine Automated 1.010 1.002 - 1.030 [facility] Color, Urine Dipstick Straw Yellow [facility] Reflex to Culture No [facility] Urine specimen obtained by clean catch procedure (specimen) 06/16/2018 6:33 PM EST 06/16/2018 7:10 PM EST Narrative Resulting Agency Comment Spec In Lab Ari Lucero MD URINE ORDERABLES Performing Organization Address City/State/[facility] Co de Phone Number [facility] [place] [phone] * CT Abdomen & Pelvis wo Contrast [...] previously there is severe atrophy of the [place] LEFT kidney.. Transplant kidney: Transplant kidney noted [...] previously there is severe atrophy of the [place] LEFTkidney.. Transplant kidney: Transplant kidney noted in [...] LEFT ureter. 5:03 PM Nick Mendes MD IMG CT ORDERABLES * US Abdomen Limited (06/16/2018 [...] 04:48 pm) PATIENT INFO: ID #: ? [id number] ?: ??[birth year] (67 yrs) Name: ? ETHEL AKINS ?Visit Date: 06/16/2018 04:37 pm PERFORMED BY: Performed By: ? Nicole Thompson RDMS Attending: ?Esa GERBER, Joseph Verduzco Resident: ? Patricia Malik DO Referred By: ?NICK MENDES Location: ? [place] SERVICE(S) PROVIDED: ??UABDLIM - Abdominal Limited Survey Single ? [id number] ??Organ or Quadrant - [id number] INDICATIONS: ??RUQ pain COMPARISON: Prior CT: 06/12/18. [...] 06/16/2018 04:48 pm) PATIENT INFO: ID #: [id number] : [birth year] (67 yrs) Name: ETHEL AKINS Visit Date: 06/16/2018 04:37 pm PERFORMED BY: Performed By: Nicole Thompson RDMS Attending: Joseph See MD Resident: Patricia Malik DO Referred By: NICK MENDES Location: [place] SERVICE(S) PROVIDED: UABDLIM - Abdominal Limited Survey Single 08121 Organ or Quadrant - [id number] INDICATIONS: RUQ pain COMPARISON: Prior CT: 06/12/18. [...] PM EST) Gold Hold Sample in lab. [facility] [facility] Blood specimen (specimen) Venous Draw / Unknown 06/16/2018 4:05 PM EST 06/16/2018 4:20 PM EST Giovanna Arriola MD CHEMISTRY ORDERAB LES Performing Organization Address City/[facility]/ZIP Co de Phone Number [facility] [place] [address] * Blue Tube HOLD (06/16/2018 4:05 PM EST) Blue Hold Sample in lab. [facility] Blood specimen (specimen) Venous Draw / Unknown 06/16/2018 4:05 PM EST 06/16/2018 4:20 PM EST Giovanna Arriola MD HEMATOLOGY ORDERA BLES Performing Organization Address City/[facility]/ZIP Co de Phone Number [facility] [place] [address] * Differential, Automated (06/16/2018 4:05 PM EST) Neutrophil % 63.5 % [facility] Neutrophil Absolute 4.68 1.70 - 6.10 x10(3)/[facility] Lymph % 24.5 % [facility] Lymphocytes Abs 1.8 0.9 - 3.2 x10(3)/[facility] Monocyte % 7.3 % [facility] Monocyte Abs 0.5 0.3 - 0.9 x10(3)/[facility] Eos % 3.3 % [facility] Eosinophils Abs 0.2 0.0 - 0.4 x10(3)/[facility] LAB[facility] Basophil % 1.0 % [facility] Baso Absolute 0.1 0.0 - 0.1 x10(3)/[facility] LAB[facility] Immature Gran % 0.40 % [facility] Comment: Immature granulocytes(IG's)percentage and absolute count will include metamyelocytes, myelocytes, and promyelocytes. Blood smears from CBCs yielding IG's will be scanned manually for concordance. If this scan disagrees with the automated IG or if promyelocytes are noted, a manual differential will be performed. Immature Gran Absolute 0.03 0.00 - 0.04 x10(3)/[facility] Blood specimen (specimen) 06/16/2018 4:05 PM EST 06/16/2018 4:20 PM EST Narrative Resulting Agency Comment Spec In Lab Giovanna Arriola MD HEMATOLOGY ORDERA BLES Performing Organization Address City/State/[facility] Co de Phone Number [facility] [place] [address] * Hemogram (06/16/2018 4:05 PM EST) White Blood Cell 7.4 4.0 - 9.5 x10(3)/[facility] Red Blood Cell 5.45 4.58 - 5.54 x10(6)/[facility] Hemoglobin 16.5 13.7 - 16.5 gm/dL [facility] Hematocrit 47.0 40.5 - 48.5 % [facility] Mean Cell Volume 86.2 82.9 - 93.1 fL [facility] Mean Cell Hemoglobin 30.3 27.5 - 32.1 pg [facility] Mean Cell Hemoglobin Concentration 35.1 32.0 - 35.7 gm/dL [facility] Platelet 278 145 - 357 x10(3)/[facility] RDW Standard Deviation 40.4 36.0 - 45.0 fL [facility] RDW coefficient of variation 13.1 11.4 - 13.8 % [facility] Mean Platelet Volume 9.7 7.6 - 12.9 fL [facility] NRBC% auto 0.0 % [facility] NRBC Absolute 0.000 0.000 - 0.000 x10(3)/mcL [facility] Blood specimen (specimen) 06/16/2018 4:05 PM EST 06/16/2018 4:20 PM EST Narrative Resulting Agency Comment Spec In Lab Giovanna Arriola MD HEMATOLOGY ORDERA BLES Performing Organization Address [facility]/ZIP Co de Phone Number [facility] [place] [address] * Lipase (06/16/2018 4:05 PM EST) Lipase 36 0 - 60 unit/L [facility] Blood specimen (specimen) 06/16/2018 4:05 PM EST 06/16/2018 4:20 PM EST Narrative Resulting Agency Comment Spec In Lab Nick Mendes MD CHEMISTRY ORDERAB LES Performing Organization Address [facility] Co de Phone Number [facility] [place] [address] * (ABNORMAL) Comprehensive metabolic panel (non-fasting) (06/16/2018 4:05 PM EST) Glucose 93 65 - 199 mg/dL [facility] Comment:Diabetes: >=200 mg/d L plus symptoms Blood Urea Nitrogen 17 10 - 20 mg/dL [facility] Creatinine 1.24 0.80 - 1.50 mg/dL [facility] Sodium 139 135 - 145 mmol/L [facility] Potassium Not Perf 3.5 - 5.0 [facility] Comment: called 06/16/18 17:05 to Carmen Ferrell Please note: ??Patients with WBC >100,000 may have falsely elevated Potassium levels. ??For accurate Potassium quantification in these patients send serum separator tube (gold top) for subsequent determinations. ??Contact the Clinical Chemistry Laboratory if there are any questions. Chloride 99 98 - 107 mmol/L [facility] Carbon Dioxide 28 22 - 31 mmol/L [facility] Anion Gap 12 5 - 15 mmol/L [facility] Calcium 9.3 8.5 - 10.5 mg/dL [facility] Protein, Total 7.6 6.1 - 8.0 gm/dL [facility] Albumin 4.0 3.2 - 5.2 gm/dL [facility] Aspartate Aminotransferase Not Perf 0 - 39 [facility] Comment:called 06/16/18 17:0 5 to Carmen Ferrell Alanine Aminotransferase Not Perf 0 - 55 [facility] Comment:called 06/16/18 17:0 5 to Carmen Ferrell Alkaline Phosphatase 64 40 - 120 unit/L [facility] Bilirubin, Total 2.0(H) 0.2 - 1.3 mg/dL [facility] Est Glomerular Filtration Rate 59(L) >=60 mL/min/1. 73 m?? [facility] Comment: The eGFR was calculated using the CKD-EPI equation. As with all creatinine based estimates of kidney function, eGFR values calculated with the CKD-EPI equation are not accurate in patients with acute kidney failure, extremes of body mass or the acutely ill. http://[employer]/[facility] CITYnkf eGFR 68 >=60 mL/min/1. 73 m?? [facility] Comment: The eGFR was calculated using the CKD-EPI equation. As with all creatinine based estimates of kidney function, eGFR values calculated with the CKD-EPI equation are not accurate in patients with acute kidney failure, extremes of body mass or the acutely ill. http://[employer]/[facility]nk[facility] Blood specimen (specimen) 06/16/2018 4:05 PM EST 06/16/2018 4:20 PM EST Narrative Resulting Agency Comment Spec In Lab Nick Mendes MD [place] [address] documented in this encounter Visit Diagnoses Diagnosis Hydronephrosis- Primary H/O kidney transplant Kidney replaced by transplant S/P R TKA 11/25/17 Dr. Dale Knee joint replacement by other means documented in this encounter Admitting Diagnoses Diagnosis Hydronephrosis [...] Given 06/16/2018 6:44 PM EST 2 mg levothyroxine (SYNTHROID) tablet 100 mcg 100 mcg, [...] 1 dose, On Thu06/17/18 at 1045, Routine 1102 (Given - Provider: Tomasa Crawford RN) calciTRIol (ROCALTROL) capsule 0.5 mcg 0.5 mcg, Oral, DAILY, First dose on Thu06/17/18 at 0900, Until Discontinued, Routine 0845 (Given [...] Procedural area)1644 ([facility] Unhold - Provider: Admin Adt)1810 (Given - Provider: Tomasa Crawford, JADEN) 0742 (Given - Provider: Sandra Ortiz, JADEN) levothyroxine (SYNTHROID) tablet 100 mcg 100 mcg, Oral, EVERY MORNING, First dose on Thu06/17/18 at 0700, Until Discontinued, Routine 0625 (Given - Provider: Ozzy Mccormick RN)151 ([facility] Hold - Provider: Admin Adt - Reason: Transfer to a Procedural area)164 ([facility] Unhold - Provider: Admin Adt) 0742 (Given - Provider: Sandra Ortiz RN) magnesium oxide (MAG-OX) tablet 400 mg 400 mg, Oral, 2 TIMES DAILY, First dose on Thu06/16/18 at 2100, Until Discontinued, Routine 2200 (Given - Provider: Ozzy Mccormick RN) 0844 (Given - Provider: Tomasa Crawford RN)151 ([facility] Hold - Provider: Admin Adt - Reason: Transfer to a Procedural area)164 ([facility] Unhold - Provider: Admin Adt)2030 (Given - Provider: Sandra Ortiz RN) 0927 (Given - Provider: Selena Nicolas RN) mycophenolate (CELLCEPT) capsule 250 mg 250 mg, Oral, 2 TIMES DAILY, First dose on Thu06/16/18 at 2115, Until Discontinued, DO NOT CRUSH OR OPEN Administer to patient on empty stomach (1 hour before or two hours after a meal)., Routine 2200 (Given - Provider: Ozzy Mccormick RN) 0625 (Given - Provider: Ozzy Mccormick RN)1517 ([facility] Hold - Provider: Admin Adt - Reason: Transfer to a Procedural area)1644 ([facility] Unhold - Provider: Admin Adt)1810 (Given - Provider: Tomasa Crawford RN) 0743 (Given - Provider: Sandra Ortiz RN) potassium phosphate (monobasic) (K-PHOS) tablet 1,500 mg 1,500 mg, Oral, 2 TIMES DAILY, First dose on Thu06/16/18 at 2200, Until Discontinued, Dissolve tablets in 6-8 oz of water; for best results, soak tablets in water for 2-5 minutes, then stir and give to patient., Routine 220 (Given - Provider: Ozzy Mccormick RN) 0844 (Given - Provider: Tomasa Crawford RN)1517 ([facility] Hold - Provider: Admin Adt - Reason: Transfer to a Procedural area)164 ([facility] Unhold - Provider: Admin Adt)2030 (Given - Provider: Sandra Ortiz, RN) 09 (Given - Provider: Selena Nicolas, RN) sodium chloride 0.9% 2,000 mL IV bolus [...] Contreras RN) 0845 (Given - Provider: Tomasa rCawford RN) tacrolimus (PROGRAF) capsule 1 mg 1 mg, Oral, DAILY, First dose on Thu06/18/18 at 2100, Until Discontinued, Routine tacrolimus (PROGRAF) capsule 2 mg (CANCELED) 2 mg, Oral, 2 TIMES DAILY, First dose on Thu06/17/18 at 1030, Until Discontinued, Routine 1155 (Given - Provider: Tomasa Crawford, JADEN)151 ([facility] Hold - Provider: Admin Adt - Reason: Transfer to a Procedural area)164 ([facility] Unhold - Provider: Admin Adt)2029 (Given - [...] (Given - Provider: Ozzy Mccormick RN) 1517 ([facility] Hold - Provider: Admin Adt - Reason: Transfer to a Procedural area)1644 ([facility] Unhold - Provider: Admin Adt)2030 (Given - Provider: Sandra Ortiz RN) PRN Medication Order 06/16/2018 06/17/2018 06/18/2018 HYDROmorphone (DILAUDID) tablet 2 mg (CANCELED) 2 mg, Oral, EVERY 4 HOURS PRN, Starting on Thu06/16/18 at 1840, Until Thu06/16/18 at 2049, Pain, Routine 1844 (Given - Provider: Halima Contreras RN) iohexol (OMNIPAQUE) 300 mg/mL solution (CANCELED) ONCE PRN, Starting on Laura 06/17/18 at 1444, Until Thu06/18/18 at 1708, Intra-Operative (Intra-Procedure), Routine 1537 (Given [...] Ozzy Mccormick RN)0735 (Given - Provider: Tomasa Crawford RN)1223 (Given - Provider: Tomasa Crawford RN)1517 ([facility] Hold - Provider: Admin Adt - Reason: Transfer to a Procedural area)1600 ([facility] Unhold - Provider: Karly Parra RN)2030 (Given - Provider: Sandra Ortiz RN) 0040 (Given - Provider: Sandra Ortiz RN)0503 (Given - Provider: Maris Tavarez V RN) documented in this encounter Care Teams Musculoskeletal Physiotherapist Relationship Specialty Start Date End Date Urbano Denis DO [address] [place] [address] PCP - General 09/03/12 03/17/22 Ruchi Valles RN Nurse Clinic Transplant Surgery 07/30/15 documented as of this encounter
--- OUTSIDE RECORDS SUMMARY | 2024-02-14 11:25 | XMS_ITS | Encounter Summary ---
Author Organization [facility] [place] [address] Care Team Providers Care Craft Manager Name Role Phone Urbano Denis DO Primary Care Provider Encounter Details Date Type Department Care Team (Latest Contact Info) Description 09/09/2017 9:40 AM EST Laboratory Appointment Lab [address] [place] [phone] Kidney replaced by transplant; shelter current use of 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 drug ; Vitamin D deficiency Social History Tobacco Use Types Packs/Day Years Used Date Smoking Tobacco: Former Cigars Q uit: 01/02/2015 Smokeless Tobacco: Never Comments:cigars, one weekly [...] AM EDT Hospital Encounter [place] [id number] Arrived documented as of this encounter Goals Goal Patient Goal Type Associated Problems Recent Progress Patient-Stated? Author [facility] Medication Compliance and Understanding Patient Facing Action Plan On track( 017 10:41 AM EDT) No Selena Cisneros, [facility] Note: Patient Goal: Clear hepatitis C Timeframe to meet goal: within 12 weeks of therapy documented as of this encounter Procedures Procedure Name Priority Date/Time Associated Diagnosis Comments URINALYSIS MICROSCOPIC EXAM STAT 09/09/2017 10:53 AM EST CALCIUM CREATININE RATIO, RANDOM URINE STAT 09/09/2017 10:53 AM EST Kidney replaced by transplant PROTEIN/CREATININE RATIO, URINE STAT 09/09/2017 10:53 AM EST Kidney replaced by transplant PHOSPHORUS, URINE, RANDOM STAT 09/09/2017 10:53 AM EST Kidney replaced by transplant URINALYSIS WITH REFLEX CULTURE STAT 09/09/2017 10:53 AM EST Kidney replaced by transplant PTH STAT 09/09/2017 10:03 AM EST Kidney replaced by transplant CMP W/FASTING GLUCOSE STAT 09/09/2017 10:03 AM EST Kidney replaced by transplant BKV QUANT BLOOD STAT 09/09/2017 10:03 AM EST Kidney replaced by transplant HEMOGRAM STAT 09/09/2017 10:03 AM EST Kidney replaced by transplant DIFFERENTIAL, AUTOMATED STAT 09/09/2017 10:03 AM EST Kidney replaced by transplant GOLD TUBE HOLD STAT 09/09/2017 10:03 AM EST Kidney replaced by transplant LAVENDER TUBE HOLD STAT 09/09/2017 10 :03 AM EST Kidney replaced by transplant TACROLIMUS LEVEL STAT 09/09/2017 10:0 3 AM EST Kidney replaced by transplant 1,25-DIHYDROXYCHOLE CALCIFEROL STAT 09/09/2017 10:03 AM EST Kidney replaced by transplant VITAMIN D, 25-HYDROXY STAT 09/09/2017 10:03 AM EST Vitamin D deficiency Kidney replaced by transplant RETICULOCYTE COUNT STAT 09/09/2017 10 :03 AM EST Kidney replaced by transplant CBC (WITH DIFF) STAT 09/09/2017 10:03 AM EST Kidney replaced by transplant URIC ACID STAT 09/09/2017 10:03 AM EST Kidney replaced by transplant PHOSPHORUS STAT 09/09/2017 10:03 AM EST Kidney replaced by transplant MAGNESIUM STAT 09/09/2017 10:03 AM EST Kidney replaced by transplant HEMOGLOBIN A1C STAT 09/09/2017 10:03 AM EST 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 Kidney replaced by transplant LIPID PANEL (REFLEX DIRECT LDL) STAT 09/09/2017 10:03 AM EST Kidney replaced by transplant U24 HRS AND VOLUME STAT 09/09/2017 6: 15 AM EST URIC ACID, URINE, 24 HOUR STAT 09/09/2017 6:15 AM EST Kidney replaced by transplant CALCIUM, URINE, 24 HOUR STAT 09/09/2017 6:15 AM EST Kidney replaced by transplant CREATININE, URINE, 24 HOUR STAT 09/09/2017 6:15 AM EST Kidney replaced by transplant PROTEIN, URINE, 24 HOUR STAT 09/09/2017 6:15 AM EST Kidney replaced by transplant PHOSPHORUS, URINE, 24 HOUR STAT 09/09/2017 6:15 AM EST Kidney replaced by transplant CREATININE CLEARANCE, URINE, 24 HOUR STAT 09/09/2017 6:15 AM EST Kidney replaced by transplant documented in this encounter Results * Urinalysis Microscopic Exam (09/09/2017 10:53 AM EST) RBC, Urine 2 0 - 3 /HPF [facility] WBC, Urine <1 0 - 3 /HPF [facility] Urine specimen obtained by clean catch procedure (specimen) 09/09/2017 10:53 AM EST 09/09/2017 10:58 AM EST Narrative Resulting Agency Comment Spec In Lab Tal Eagle MD URINE ORDERABLES Performing Organization Address City/[facility]/ZIP Co de Phone Number [facility] [place] [address] * (ABNORMAL) Urinalysis with reflex Culture (09/09/2017 10:53 AM EST) Glucose, Urine Dipstick Negative Negative mg/dL [facility] [...] mg/dL [facility] pH, Urn (dipstick) 6.0 5.0 - 8.0 [facility] Blood, Urine Dipstick Negative Negative mg/dL [facility] Ketone, Urine Dipstick Negative Negative mg/dL [facility] Nitrite, Urine Dipstick Negative Negative [facility] Leukocytes, Urine Dipstick Negative Negative mcL [facility] Appearance, Urine Dipstick Clear Clear [facility] Specific [place] Urine Automated 1.016 1.002 - 1.030 [facility] Color, Urine Dipstick Yellow Yellow [facility] Reflex to Culture No [facility] Urine specimen obtained by clean catch procedure (specimen) 09/09/2017 10:53 AM EST 09/09/2017 10:58 AM EST Narrative Resulting Agency Comment Spec In Lab Tal Eagle MD URINE ORDERABLES Performing Organization Address City/[facility]/ZIP Co de Phone Number [facility] [place] [address] * (ABNORMAL) Protein/Creatinine Ratio, urine (09/09/2017 10:53 AM EST) Creatinine, Urine 84 mg/dL [facility] Protein, Urine 62(H) 0 - 12 mg/dL [facility] Protein / Creatinine Ratio, Urine 0.7 ratio [facility] Urine specimen (specimen) 09/09/2017 10:53 AM EST 09/09/2017 10:58 AM EST Narrative Resulting Agency Comment Spec In Lab Tal Eagle MD URINE ORDERABLES Performing Organization Address [facility] Co de Phone Number [facility] [place] [address] * Phosphorus, urine, random (09/09/2017 10:53 AM EST) Phosphorus, Urine 49.2 mg/dL [facility] Urine specimen (specimen) 09/09/2017 10:53 AM EST 09/09/2017 10:58 AM EST Narrative Resulting Agency Comment Spec In Lab Tal Eagle MD URINE ORDERABLES Performing Organization Address [facility] Co de Phone Number [facility] [place] [address] * Calcium Creatinine Ratio, random urine (09/09/2017 10:53 AM EST) Calcium, Urine 7.9 mg/dL [facility] Creatinine, Urine 84 mg/dL [facility] Calcium / Creatinine Ratio, Urine 0.09 ratio [facility] Urine specimen (specimen) 09/09/2017 10:53 AM EST 09/09/2017 10:58 AM EST Narrative Resulting Agency Comment Spec In Lab Tal Eagle MD URINE ORDERABLES Performing Organization Address City/[facility]/[place] [address] * (ABNORMAL) Differential, Automated (09/09/2017 10:03 AM EST) Pathologist [facility] Neutrophil % 64.2 % [facility] Neutrophil Absolute 5.05 1.70 - 6.10 x10(3)/mc L [facility] Lymph % 24.2 % [facility] Lymphocytes Abs 1.9 0.9 - 3.2 x10(3)/ L [facility] Monocyte % 7.1 % [facility] Monocyte Abs 0.6 0.3 - 0.9 x10(3)/ L [facility] Eos % 2.7 % [facility] Eosinophils Abs 0.2 0.0 - 0.4 x10(3)/ L [facility] Basophil % 1.0 % [facility] Baso Absolute 0.1 0.0 - 0.1 x10(3)/ L [facility] Immature Gran % 0.80 % [facility] Comment: Immature granulocytes(IG's)percentage and absolute count will include metamyelocytes, myelocytes, and promyelocytes. Blood smears from CBCs yielding IG's will be scanned manually for concordance. If this scan disagrees with the automated IG or if promyelocytes are noted, a manual differential will be performed. Immature Gran Absolute 0.06(H) 0.00 - 0.04 x10(3)/ L [facility] Blood specimen (specimen) 09/09/2017 10:03 AM EST 09/09/2017 10:09 AM EST Narrative Resulting Agency Comment Spec In Lab Tal Eagle MD HEMATOLOGY ORDERA BLES [facility] [place] [address] * Hemogram (09/09/2017 10:03 AM EST) [facility] White Blood Cell 7.9 4.0 - 9.5 x10(3)/[facility] Red Blood Cell 5.10 4.58 - 5.54 x10(6)/[facility] Hemoglobin 15.8 13.7 - 16.5 gm/dL [facility] Hematocrit 45.2 40.5 - 48.5 % [facility] Mean Cell Volume 88.6 82.9 - 93.1 fL [facility] Mean Cell Hemoglobin 31.0 27.5 - 32.1 pg [facility] Mean Cell Hemoglobin Concentration 35.0 32.0 - 35.7 gm/dL [facility] Platelet 304 145 - 357 x10(3)/[facility] RDW Standard Deviation 41.6 36.0 - 45.0 [facility] RDW coefficient of variation 12.8 11.4 - 13.8 % [facility] Mean Platelet Volume 8.9 7.6 - 12.9 [facility] NRBC% auto 0.0 % [facility] NRBC Absolute 0.000 0.000 - 0.000 x10(3)/[facility] Blood specimen (specimen) 09/09/2017 10:03 AM EST 09/09/2017 10:09 AM EST Narrative Resulting Agency Comment Spec In Lab Tal Eagle MD HEMATOLOGY ORDERA BLES [facility] [place] [address] * Gold Tube HOLD (09/09/2017 10:03 AM EST) Gold Hold Sample in lab. [facility] Blood specimen (specimen) 09/09/2017 10:03 AM EST 09/09/2017 10:09 AM EST Tal Eagle MD CHEMISTRY ORDERAB LES [facility] [place] [address] * Lavender Tube HOLD (09/09/2017 10:03 AM EST) Lavender Hold Sample in lab. [facility] Blood specimen (specimen) 09/09/2017 10:03 AM EST 09/09/2017 10:09 AM EST Tal Eagle MD HEMATOLOGY ORDERA BLES [facility] [place] [address] * (ABNORMAL) Vitamin D, 25-Hydroxy (09/09/2017 10:03 AM EST) Vitamin D Total 25 OH 16(L) 30 - 100 ng/mL [facility] Comment: Deficient <10 ng/mL Insufficient 10 to 29 ng/mL Sufficient 30 to 100 ng/mL Potential Intoxication >100 ng/mL According to the [place] National Osteoporosis Foundation, Vitamin D concentrations >30 ng/mL are sufficient to protect bone health. ??The National Kidney Foundation has similarly stated that patients with Vitamin D concentrations <30ng/mL should be considered to be insufficient or deficient. http://Hand[employer]/nkf-guidelines http://Hand[employer]/nejm-VitD The [employer] i[employer] Vitamin D Immunoassay detects both 25-OH Vitamin D2 and 25-OH Vitamin D3, but only a total Vitamin D concentration is reported. Blood specimen (specimen) 09/09/2017 10:03 AM EST 09/09/2017 2:08 PM EST Narrative Resulting Agency Comment Spec In Lab Tal Eagle MD CHEMISTRY ORDERAB LES Performing Organization Address City/[facility]/ZIP Co de Phone Number [facility] [place] [address] * Uric acid (09/09/2017 10:03 AM EST) Uric Acid 7.3 3.5 - 8.5 mg/dL [facility] Blood specimen (specimen) 09/09/2017 10:03 AM EST 09/09/2017 10:09 AM EST Narrative Resulting Agency Comment Spec In Lab Tal Eagle MD CHEMISTRY ORDERAB LES Performing Organization Address [facility] de Phone Number [facility] [place] [address] * Tacrolimus level (09/09/2017 10:03 AM EST) Tacrolimus 5.5 ng/mL [facility] Comment: Trough therapeutic: ??5-15 ng/mL Performed by ultra-performance liquid chromatography tandem mass spectrometry (UPLCMS/MS). This test was developed and its performance characteristics determined by [facility]. It has not been cleared or approved by the FDA. The laboratory is regulated under CLIA as qualified to perform high-complexity testing. This test is used for clinical purposes. It should not be regarded as investigational or for research. Blood specimen (specimen) 09/09/2017 10:03 AM EST 09/09/2017 10:24 AM EST Narrative Resulting Agency Comment Spec In Lab Tal Eagle MD CHEMISTRY ORDERAB LES Performing Organization Address [facility] de Phone Number [facility] [place] [address] * Reticulocyte Count (09/09/2017 10:03 AM EST) Reticulocyte % 2.2 0.7 - 2.6 % [facility] Retic Abs # 0.110 0.030 - 0.120 x10(6)/mcL [facility] Immature Retic% 13.1 0.0 - 15.6 % [facility] Reticulated Hgb 35.4 31.3 - 40.2 pg [facility] Blood specimen (specimen) 09/09/2017 10:03 AM EST 09/09/2017 10:09 AM EST Narrative Resulting Agency Comment Spec In Lab Tal Eagle MD HEMATOLOGY ORDERA BLES Performing Organization Address [facility]/ZIP Co de Phone Number [facility] [place] [address] * PTH (09/09/2017 10:03 AM EST) Parathyroid Hormone 57 15 - 65 pg/mL [facility] Blood specimen (specimen) 09/09/2017 10:03 AM EST 09/09/2017 10:09 AM EST Narrative Resulting Agency Comment Spec In Lab Tal Eagle MD CHEMISTRY ORDERAB LES Performing Organization Address [facility] Co de Phone Number [facility] [place] [address] * Phosphorus (09/09/2017 10:03 AM EST) Pathologist [facility] Phosphorus 2.5 2.5 - 4.5 mg/dL [facility] Blood specimen (specimen) 09/09/2017 10:03 AM EST 09/09/2017 10:09 AM EST Narrative Resulting Agency Comment Spec In Lab Tal Eagle MD CHEMISTRY ORDERAB LES Performing Organization Address [facility] Co de Phone Number [facility] [place] [address] * BKV Quant Blood (09/09/2017 10:03 AM EST) Pathologist [facility] BKV Blood Result Not Detected [facility] BKV Blood Interp BK Virus Plasma Result Interpretation Result: BK Virus not detected Specimen type: plasma Assay Range: 2.83-8.83 log copies/mL (6.8x10^2 - 6.8x10^8 copies/mL) Methods: Quantitative real-time polymerase chain reaction (PCR) of viral DNA isolated from plasma was performed using [employer] (formerly, [employer]) BKV analyte-specific reagents and the Applied Codelearn 7500 FAST Real-Time PCR System. In addition, the PCR product sequence is confirmed using physical properties (melting curve analysis). Limitations and Disclaimers: Although unlikely, rare variants [...] [facility] [employer] [facility] ([facility]) Laboratory at [facility]. It has not been cleared or approved by the FDA. The laboratory is regulated under CLIA as qualified to perform high-complexity testing. This test is used for clinical purposes. It should not be regarded as investigational or for research. [facility] Comment: [VERIFIED DATE]09.15.17 Verified By:Jimmy Gleason (Electronic Signature) Blood specimen (specimen) 09/09/2017 10:03 AM EST 09/09/2017 12:55 PM EST Narrative Resulting Agency Comment Spec In Lab Tal Eagle MD MOLECULAR ORDERAB LES Performing Organization Address City/[facility]/ZIP Co de Phone Number [facility] [place] [address] * (ABNORMAL) Magnesium (09/09/2017 10:03 AM EST) Pathologist [facility] Magnesium 0.68(L) 0.69 - 1.07 mmol/L [facility] Blood specimen (specimen) 09/09/2017 10:03 AM EST 09/09/2017 10:09 AM EST Narrative Resulting Agency Comment Spec In Lab Tal Eagle MD CHEMISTRY ORDERAB LES Performing Organization Address City/[facility]/ZIP Co de Phone Number [facility] [place] [address] * Lipid Panel (09/09/2017 10:03 AM EST) Cholesterol, Total 138 mg/dL [facility] Comment: Lower Risk: <200 mg/dL Average Risk: 200-239 mg/dL Higher Risk: >yp=131 mg/dL Triglyceride 178 mg/dL [facility] Comment: Average Risk/Lower Risk: <150 mg/dL Borderline High Risk: 150-199 mg/dL High Risk: 200-499 mg/dL Very High Risk: >gx=931 mg/dL HDL Cholesterol 33 mg/dL [facility] Comment: Males: ?? Higher Risk: <40 mg/dL Females: ?? HIgher Risk: <50 mg/dL LDL Cholesterol 69 mg/dL [facility] Comment: Lowest Risk: <100 mg/dL Lower Risk: 100-129 mg/dL Borderline High Risk: 130-159 mg/dL High Risk: 160-189 mg/dL Very High Risk: >jf=640 mg/dL Cholesterol/HDL Ratio 4.2 ratio [facility] Lipid Interpretation See Note [facility] Comment: Lipid management should be guided by a patient? s ASCVD risk, goals and preferences. ACC/AHA Guidelines recommend high intensity statin if clinical ASCVD or LDL greater than or equal to 190 mg/dL. http://Handmark.[employer]/FQM-UFL-Oiksreaiz Adults aged 40-75 with LDL 70-189 mg/dL should have their 10 year ASCVD risk estimated with the ACC/AHA ASCVD risk sales estimator http://tools.acc.org/SVFWH-Twrs-Yqslybmng/ Statin should be discussed if risk greater [...] of ASCVD risk reduction. Blood specimen (specimen) 09/09/2017 10:03 AM EST 09/09/2017 10:09 AM EST Narrative Resulting Agency Comment Spec In Lab Tal Eagle MD CHEMISTRY ORDERAB LES [facility] [place] [address] * Hemoglobin A1c (09/09/2017 10:03 AM EST) Hemoglobin A1c 5.1 4.3 - 5.6 % [facility] Comment: Reference Range: 4.3 - 5.6% 5.7 - 6.4% - Increased Risk of Developing Diabetes Mellitus >=6.5% - Consistent with diagnosis of Diabetes Mellitus In the absence of hyperglycemia (i.e. plasma glucose > 200 mg/dL) or classic symptoms of hyperglycemia a repeat measurement of HbA1c should be performed on a separate sample to confirm the diagnosis. Diagnosis and Classification of Diabetes Mellitus, Diabetes Care 2013; 36: Suppl. 1, S67-95 Estimated Average Glucose 100 mg/dL [facility] Comment: eAG equivalents for HbA1c percentages: HbA1c(%) ?eAG(mg/dL) [...] into estimated average glucose values. ??Diabetes Care 2008:31(8):8892-5120. Blood specimen (specimen) 09/09/2017 10:03 AM EST 09/09/2017 10:09 AM EST Narrative Resulting Agency Comment Spec In Lab Tal Eagle MD CHEMISTRY ORDERAB LES [facility] [place] [address] * (ABNORMAL) CMP w/fasting Glucose (09/09/2017 10:03 AM EST) Glucose Fasting 122(H) 65 - 99 mg/dL [facility] Comment: ?Fasting* Glucose Interpretive Criteria [...] of Diabetes Mellitus, Position Statement from the [place] [employer]. ??Diabetes Care, Volume 33, Supplement 1, Jul 2009 Blood Urea Nitrogen 14 10 - 20 mg/dL [facility] Creatinine 1.20 0.80 - 1.50 mg/dL [facility] Sodium 139 135 - 145 mmol/L [facility] Potassium 3.6 3.5 - 5.0 mmol/L [facility] Comment: Please note: ??Patients with WBC >100,000 may have falsely elevated Potassium levels. ??For accurate Potassium quantification in these patients send serum separator tube (gold top) for subsequent determinations. ??Contact the Clinical Chemistry Laboratory if there are any questions. Chloride 99 98 - 107 mmol/L [facility] Carbon Dioxide 24 22 - 31 mmol/L [facility] Anion Gap 16(H) 5 - 15 mmol/L [facility] Calcium 9.2 8.5 - 10.5 mg/dL [facility] Protein, Total 7.6 6.1 - 8.0 gm/dL [facility] Albumin 4.1 3.2 - 5.2 gm/dL [facility] Aspartate Aminotransferase 18 0 - 39 unit/L [facility] Alanine Aminotransferase 19 0 - 55 unit/L [facility] Alkaline Phosphatase 71 40 - 120 unit/L [facility] Bilirubin, Total 1.1 0.2 - 1.3 mg/dL [facility] Est Glomerular Filtration Rate 60 >=60 [facility] Comment: The reported eGFR should be multiplied by 1.2 for patients. The MDRD is not an appropriate measure of renal function for patients with body mass extremes or in patients with acute kidney failure. http://mAPPn/DHnkdep http://mAPPn/DHMCnkf Blood specimen (specimen) 09/09/2017 10:03 AM EST 09/09/2017 10:09 AM EST Narrative Resulting Agency Comment Spec In Lab Tal Eagle MD CHEMISTRY ORDERAB LES Performing Organization Address [facility] Co de Phone Number [facility] [place] [address] * 1,25-dihydroxycholecalciferol (09/09/2017 10:03 AM EST) Vit D 1,25 Dihydroxy (NOVEMBER) 59 18 - 64 pg/mL [facility] Comment: ADDITIONAL INFORMATION This test was developed and its performance characteristics determined by [facility] in a manner consistent with CLIA requirements. This test has not been cleared or approved by the U.S. Food and Drug Administration. Test Performed by: [facility] [address] [place] [address] Blood specimen (specimen) 09/09/2017 10:03 AM EST 09/09/2017 12:15 PM EST Narrative Resulting Agency Comment Spec In Lab Tal Eagle MD LAB SEND OUT STEVEE DICK Performing Organization Address [facility] Co de Phone Number [facility] [place] [address] * U24 Hrs and Volume (09/09/2017 6:15 AM EST) Hours Collected 24 hour(s) [facility] Total Volume 1,400 mL [facility] Urine specimen (specimen) 09/09/2017 6:15 AM EST 09/09/2017 11:04 AM EST Narrative Resulting Agency Comment Spec In Lab Tal Eagle MD CHEMISTRY ORDERAB LES Performing Organization Address [facility] Co de Phone Number [facility] [place] [address] * Uric acid, urine, 24 hour (09/09/2017 6:15 AM EST) U24 Uric Conc 29.0 mg/dL [facility] Uric Acid, 24 Hour Urine 0.41 0.25 - 0.80 gm/24hr [facility] Urine specimen (specimen) 09/09/2017 6:15 AM EST 09/09/2017 11:04 AM EST Narrative Resulting Agency Comment Spec In Lab Tal Eagle MD URINE ORDERABLES Performing Organization Address [facility] Co de Phone Number [facility] [place] [address] * (ABNORMAL) Protein, urine, 24 hour (09/09/2017 6:15 AM EST) Protein Concentration, U24 56 <=80 mg/dL [facility] Protein, 24 Hour Urine 0.78(H) <=0.15 gm/24hr [facility] Urine specimen (specimen) 09/09/2017 6:15 AM EST 09/09/2017 11:04 AM EST Narrative Resulting Agency Comment Spec In Lab Tal Eagle MD URINE ORDERABLES Performing Organization Address [facility] Co de Phone Number [facility] [place] [address] * Phosphorus, urine, 24 hour (09/09/2017 6:15 AM EST) Phosphorus Concentration, U24 66.0 mg/dL [facility] Phosphorus, 24 Hour Urine 0.9 0.4 - 1.3 gm/24hr [facility] Urine specimen (specimen) 09/09/2017 6:15 AM EST 09/09/2017 11:04 AM EST Narrative Resulting Agency Comment Spec In Lab Tal Eagle MD URINE ORDERABLES Performing Organization Address City/[facility]/ZIP Co de Phone Number [facility] [place] [address] * Creatinine, urine, 24 hour (09/09/2017 6:15 AM EST) Cre Concentration, U24 107 mg/dL [facility] Creatinine, 24 Hour Urine 1.50 0.80 - 1.90 gm/24hr [facility] Urine specimen (specimen) 09/09/2017 6:15 AM EST 09/09/2017 11:04 AM EST Narrative Resulting Agency Comment Spec In Lab Tal Eagle MD URINE ORDERABLES Performing Organization Address [facility] Co de Phone Number [facility] [place] [address] * (ABNORMAL) Creatinine Clearance, urine, 24 hour (09/09/2017 6:15 AM EST) Creatinine Clearance, 24 Hour Urine 87(L) 90 - 139 mL/min [facility] Cre Concentration, U24 107 mg/dL [facility] Creatinine, 24 Hour Urine 1.50 0.80 - 1.90 gm/24hr [facility] Urine specimen (specimen) 09/09/2017 6:15 AM EST 09/09/2017 11:04 AM EST Narrative Resulting Agency Comment Spec In Lab Tal Eagle MD URINE ORDERABLES [facility] [place] [address] * Calcium, urine, 24 hour (09/09/2017 6:15 AM EST) Ca Concentration, U24 9.5 mg/dL [facility] Calcium, 24 Hour Urine 133.0 50.0 - 300.0 mg/24hr [facility] Comment:Reference Range: 50. 0-300.0 mg/24 hour based on diet. 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
--- OUTSIDE RECORDS SUMMARY | 2024-02-14 11:25 | XMS_ITS | Encounter Summary ---
Author Organization Formerly [facility] [place] [address] Care Team Providers Care Telescope Operator Name Role Phone Adeel Urbano KIRBY Primary Care Provider Reason for Visit * Reason Comments Medication Refill Encounter Details Date Type Department Care Team (Late st Contact Info) Description 12/11/2017 Refill [place] [address] Tal Eagle MD [facility] [place] [address] Social History Tobacco Use Types Packs/Day Years [...] AM EDT Hospital Encounter Non[place] [address] Arrived documented as of this encounter Goals Goal Patient Goal Type Associated Problems Recent Progress Patient-Stated? Author [facility] Medication Compliance and Understanding Patient Facing Action Plan On track(03/21/2 017 10:41 AM EDT) No Blayne, Selena M, [facility] Note: Patient Goal: Clear hepatitis C Timeframe to meet goal: within 12 weeks of therapy documented as of this encounter Visit Diagnoses Not on filedocumented in this encounter Care Teams Telescope Operator Relationship Specialty Start Date End Date Urbano Denis DO [address] [place] [address] PCP - General 09/03/12 03/17/22 Ruchi Valles RN Nurse Clinic Transplant Surgery 07/30/15 documented as of this encounter
--- OUTSIDE RECORDS SUMMARY | 2024-02-14 11:25 | XMS_ITS | Encounter Summary ---
Author Organization [facility] Address [facility] [place] [address] Care Team Providers Care Rough And Truing Machine Operator Name Role Phone Adeel Urbano KIRBY Primary Care Provider Encounter Details Date Type Department Care Team (Latest Contact Info) Description 01/04/2018 11:58 AM EDT - 01/04/2018 11:59 PM EDT Hospital Encounter XRay at [address] [place] [address] Breezy Dale MD [facility] [place] [address] Pain of right lower extremity; Debility; Primary osteoarthritis of right knee Discharge Disposition: Home Social History Tobacco Use [...] Tablet Take 137 mcg by mouth daily. calciTRIol (ROCALTROL) 0.5 mcg Capsule Take 0.5 mcg by mouth daily. 07/15/2018 oxyCODONE (ROXICODONE) 5 mg TabletIndications:Pre sence of right artificial knee joint 1 TABLET EVERY 4-6 HOURS PRN 30 tablet 01/04/2018 06/18/2018 mycophenolate (CELLCEPT) 250 mg Capsule Take one capsule twice daily. Kidney transplant 09/16/15. ICD code Z94.0 180 capsule 3 12/22/2017 06/28/2018 PROGRAF 1 mg Capsule Take two capsules in the morning and one at night. Kidney transplant 09/15/18. ICD code Z94.0 270 capsule 3 12/11/2017 11/15/2018 oxyCODONE (ROXICODONE) 5 mg TabletIndications:Pre sence of right artificial knee joint Take 1 tablet by mouth every 4 hours as needed for Pain. 50 tablet 12/04/2017 02/01/2018 polyethylene glycol (MIRALAX) 17 gram Powder in Packet Take 17 g by mouth 2 times daily. Take to maintain normal bowel pattern while taking narcotic pain medication. 11/26/2017 05/30/2019 Magnesium Gluconate 27 mg (500 mg) Tablet Take 2 tablets by mouth 2 times daily. 06/07/2018 potassium phosphate, monobasic, (K-PHOS) 500 mg Tablet, [...] daily. 02/17/2020 documented as of this encounter Plan of Treatment Upcoming Encounters Date Type Department Care Team (Late st Contact Info) Description 04/15/2024 10:00 AM EDT Hospital Encounter Non[place] [address] Arrived documented as of this encounter Goals Goal Patient Goal Type Associated Problems Recent Progress Patient-Stated? Author [facility] Home Medication Compliance and Understanding Patient Facing Action Plan On track( 017 10:41 AM EDT) Selena Scott [facility] Note: Patient Goal: Clear hepatitis C Timeframe to meet goal: within 12 weeks of therapy documented as of this encounter Procedures Procedure Name Priority Date/Time Associated Diagnosis Comments XR KNEE STANDING ALIGNMENT AP LAT SKYLINE RIGHT Routine 01/04/2018 12:15 PM EDT Pain of right lower extremity Debility Primary osteoarthritis of right knee documented in this encounter Results * XR Knee Standing Alignment AP Lat [place] Right (01/04/2018 12:15 PM EDT) Anatomical Region Laterality Modality Knee Right Digital Radiogra phy Impressions 01/04/2018 2:42 PM EDT Right total knee arthroplasty. No acute complication. Narrative 01/04/2018 2:42 PM EDT EXAMINATION: XR KNEE STANDING ALIGNMENT AP LAT SKYLINE RIGHT CLINICAL HISTORY: History of knee replacement TECHNIQUE: Separate images of the pelvis, knees and feet were acquired in the AP projection with the patient standing. These images were stitched together to form a composite image of the pelvis and legs allowing for evaluation of lower extremity alignment in the weight bearing position. In addition, sunrise and right lateral and AP standing films were acquired COMPARISON: 10/05/2017 FINDINGS: Total knee arthroplasty has been performed on the right. Mechanical axis on the right is well centered. Mechanical axis on the left remains slightly lateral of midline. Patellofemoral alignment on the right talus at midline. On the left there is subchondral sclerosis and osteophyte formation. At the right knee soft tissue swelling is present anteriorly and there is joint fluid consistent with the patient's relatively recent postoperative status. No acute complication is identified. Procedure Note Ozzy Krishnamurthy MD - 01/04/2018 EXAMINATION: XR KNEE STANDING ALIGNMENT AP LAT SKYLINE RIGHT CLINICAL HISTORY: History of knee replacement TECHNIQUE: Separate images of the pelvis, knees and feet were acquired inthe AP projection with the patient standing. These images were stitched togetherto form a composite image of the pelvis and legs allowing for evaluation oflower extremity alignment in the weight bearing position. In addition, sunriseand right lateral and AP standing films were acquired COMPARISON: 10/05/2017 FINDINGS: Total knee arthroplasty has been performed on the right. Mechanical axis on the right is well centered. Mechanical axis on the left remains slightly lateral of midline. Patellofemoral alignment on the right talus at midline. On the left thereis subchondral sclerosis and osteophyte formation. At the right knee soft tissue swelling is present anteriorly and there isjoint fluid consistent with the patient's relatively recent postoperativestatus. No acute complication is identified. IMPRESSION Right total knee arthroplasty. No acute complication. Breezy Dale MD IMG DX ORDERABLES documented in this encounter Visit Diagnoses Diagnosis Pain of right lower extremity Debility Debility, unspecified Primary osteoarthritis of right knee Primary localized osteoarthrosis, lower leg documented in this encounter Care Teams Rough And Truing Machine Operator Relationship Specialty Start Date End Date Urbano Denis DO [address] [place] [address] PCP - General 09/03/12 03/17/22 Ruchi Valles RN Nurse Clinic Transplant Surgery 07/30/15 documented as of this encounter
--- OUTSIDE RECORDS SUMMARY | 2024-02-14 11:25 | XMS_ITS | Encounter Summary ---
[place] [address] Care Team Providers Care Curtain Worker Name Role Phone AdeelUrbano Primary Care Provider [phone] Encounter Details Date Type Department Care Team (Late st Contact Info) Description 11/04/2017 1:30 PM EDT Notes [place] [address] Social History Tobacco Use Types Packs/Day Years [...] as of this encounter Progress Notes * Daksha Harrell - 11/04/2017 1:30 PM EDT Office of Care Management Initial Assessment Daksha Harrell reviewed record and discussed patient with Care Team. Source of Information: Cody Bolden Introduced self/reviewed role; services accepted. Reason for Hospitalization: Primary OA of right knee. Right TKA on 11/25/[address] Breezy Dale. Past Medical History: Diagnosis Date ??? Back pain ??? Colon polyp ??? CVA (cerebral vascular accident) Per report but no deficits ??? ESRD (end stage renal disease) ??? GERD (gastroesophageal reflux disease) ??? HTN (hypertension) ??? Microhematuria ??? Type 2 diabetes mellitus Hospitalizations Within the Past 30 Days: Anticipated Length Of Stay (If known): Current Decision-Making Capacity: He is capable of making his own medical decisions. Advance Care Planning: We discussed what an ADV DIR is and its purpose thereof. We completed an ADVDIR In this appointment. Current Coping/Education/Information Needs: He appears to understand the hospital course and discharge plans. Current Functional Ability: Functional Status Prior to Admission: At his pre-op appointment, he ambulates independently withoutan assistive device. He uses a cane sometimes to relieve the pressure. He is able to do his ADL without assistance with the exception of his socks. He is still driving. He is able to do his own cooking, cleaning, without shopping. He is retired. Home Environment: He lives in a 2 level house. There are a couple of steps into the house without railings. Everything is on 1 level. He has a walk-in shower with grab bars. It has built in seats. Social & Family Supports/Community Resources: His primary caregiver is going to be his Mara. Behavioral Health History: None Substance Use/Abuse: None Other Pertinent/Service Specific Information: I discussed with the patient the potential avenues ofdischarge postoperatively. We discussed qualifications to go to a intermediate facility. We discussed potential out of pocket costs associated with non-emergent wheelchair van and ambulance transportation.We discussed the purpose and services provided by [facility]. If patient opts to go to outpatient physical therapy post-op, they are responsible for scheduling their initial and subsequent appointments. I communicated that we will not know until after surgery what will be the best course of discharge for the patient based on medical necessity and that this is why we plan for different courses of discharge. I informed the patient that they will be working with a health care analyst after surgery to facilitate the discharge plan. I encouraged the patient to call with any questions or concerns prior to the surgery as well as when they discharge home. Health/Prescription Coverage: Primary Insurance: MEDICARE Secondary Insurance: [employer] [facility] Prescription Coverage: Yes Preferred Pharmacy: [place], [place] - [facility] [address] ? [facility] [place] [address] ? Not a 24 hour pharmacy; exact hours not known Other: None Primary Care Provider: Urbano Deins DO [phone] Patient/Caregiver Goals of Treatment: He wants to move and do things. Potential Needs for Transition of Care: Rehab/SNF: No selection Home Health: No selection OP PT: [facility] [place], [place] A referral has been sent. Pt was instructed to call facility and schedule his first appnt for 11/27/17. DME: He will need a 2 FWW and a crutches. Dialysis: No Community Resources: None Transportation: We discussed that since we cannot determine the exact day or time of discharge, transportation must be readily available at time of discharge. Transportation will be provided by Mara. Other: None Anticipated Barriers to Discharge/Special Considerations: None Assessment: Plan: He prefers to d/c home with OP PT at [facility] in [place]. A member of the Care Management team will continue to monitor progress, follow for continuity of care and assist with transition of care planning. Daksha Harrell Pager: [phone] documented in this encounter Plan of Treatment Upcoming Encounters Date Type Department Care Team (Late st Contact Info) Description 04/15/2024 10:00 AM EDT Hospital Encounter Non-Invasive [place] [address] Arrived documented as of this [...] on filedocumented in this encounter Care Teams Curtain Worker Relationship Specialty Start Date End Date Urbano Denis DO [address] [place] [address] PCP - General 09/03/12 03/17/22 Hai STANLEY,Ruchi Nurse Clinic Transplant Surgery 07/30/15 documented as of this encounter
--- OUTSIDE RECORDS SUMMARY | 2024-02-14 11:25 | XMS_ITS | Encounter Summary ---
Author [facility] [place] [address] Care Team Providers Care Linotype Machinist Apprentice Name Role Phone Urbano Denis DO Primary Care Provider [phone] Reason for Referral * Physical Therapy (Routine) - Specialty Diagnoses / Procedures Referred By Humberto flor Referred To Contact Physical Therapy Diagnoses Primary osteoarthritis of right knee Breezy Dale MD [facility] [place] [address] Referral ID Status Reason Start Date Expiration Date V isits Requested Visits Authorized [id number] Evaluate and Treat 11/04/2017 05/03/2018 12 12 Reason for Visit * Reason Comments Pre-op Exam Right TKA Encounter Details Date Type Department Care Team (Latest Contact Info) Description 11/04/2017 2:00 PM EDT Office Visit [place] [address] Orlando Stafford MD [facility] [place] [address] Preop examination; Primary osteoarthritis of right knee; H/O kidney transplant; Personal history of 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 therapy Social History Tobacco Use Types Packs/Day Years [...] Sign Reading Time Taken Comments Blood Pressure 167/64 11/04/2017 2:22 PM EDT Pulse 62 11/04/2017 2:22 PM EDT Temperature - - Respiratory Rate - - Oxygen Saturation 97% 11/04/2017 2:22 PM EDT Inhaled Oxygen Concentration - - Weight 103.4 kg (228 lb) 11/04/2017 2:22 PM EDT Height 177.8 cm (5' 10) 11/04/2017 2:22 PM EDT Body Mass Index 32.71 11/04/2017 2:22 PM EDT documented in this encounter H&P Notes * Orlando Stafford MD - 11/04/2017 2:00 PM EDT Images from the original note were not included. CC: Cody Bolden is a 67 y.o. male new patient to the perioperative clinic with the following problems and medications that is being seen in the clinic for consultation at the request of his surgeon Dr. Breezy Dale for preoperative risk stratification and management recommendations in anticipation of right total knee arthroplasty for symptomatic OA. HPI - Pain - Location - Right knee Quality - aching, Onset - gradual, Duration - several months, Intensity - moderate to severe, Aggravating factors - standing, walking, stepping, Alleviating factors- rest, Associated - kidney transplant status followed by Dr. Eagle. He had recurrent UTIs but that resolved after ureteral reconstruction. He had an instance of hemoptysis which resolved with amoxicillin but also underwent TB testing which was negative as documented in Dr. Eagle's note that I reviewed. His sugar this am was 90's fasting. Patient Active Problem List Diagnosis Code ??? [...] hepatitis) K73.2 ??? Prophylactic immunotherapy Z29.8 ??? 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 Vitamin D deficiency E55.9 ??? Primary osteoarthritis of right knee M17.11 ??? Debility R53.81 ??? Pain of right lower extremity M79.604 Current Outpatient Prescriptions Medication Sig Dispense Refill ??? glipiZIDE (GLUCOTROL XL) 2.5 mg Tablet Extended Rel 24 hr Take 2.5 mg by mouth daily. Indications: type 2 diabetes mellitus ??? levothyroxine (SYNTHROID) 137 mcg Tablet Take 137 mcg by mouth daily. ??? Magnesium Gluconate 27 mg (500 mg) Tablet Take 2 tablets by mouth 2 times daily. ??? potassium phosphate, monobasic, (K-PHOS) 500 mg Tablet, Soluble Take 3 tabs at lunch time and 3tabs at bedtime (Patient taking differently: Take 2 tabs at lunch time and 2 tabs at bedtime) 540 tablet 3 ??? tamsulosin (FLOMAX) 0.4 mg Capsule, Sust. Release 24 hr Take 1 capsule by mouth nightly for 364days. 30 capsule 11 ??? mycophenolate (CELLCEPT) 250 mg Capsule Take 250 mg twice daily. Kidney transplant 09/16/15. ICDcode Z94.0 60 capsule 11 ??? calciTRIol (ROCALTROL) 0.5 mcg Capsule Take 1 capsule by mouth daily. 90 capsule 3 ??? PROGRAF 1 mg Capsule Take 2 capsules in the morning and 1 capsule at night. Kidney transplant 09/16/2015. ICD code Z94.0 270 capsule 3 ??? ascorbic acid, vitamin C, (VITAMIN C) 500 mg Tablet Take 1 tablet by mouth 3 times daily. 30 tablet 3 ??? clopidogrel (PLAVIX) 75 mg Tablet Take 75 mg by mouth daily. ??? acetaminophen (TYLENOL) 500 mg Tablet Take 1,000 mg by mouth every 6 hours as needed for Pain. Reported on 09/15/2016 No current facility-administered medications for this visit. Social History Occupational History ??? Not on file. Social History Main Topics ??? Smoking status: Former Smoker Types: Cigars Quit date: 01/02/2015 ??? Smokeless tobacco: Never Used Comment: cigars, one weekly ??? Alcohol use No ??? Drug use: No ??? Sexual activity: Not on file Family history: No colon cancer, dad of [place] young age. Mother alive at 98. Review of Systems: Review of Systems Constitutional: Negative for chills, diaphoresis and fever. HENT: Negative for mouth sores and nosebleeds. Eyes: Negative for photophobia and visual disturbance. Respiratory: Positive for apnea. Negative for cough, shortness of breath and wheezing. Had ARIELLA prior to transplant but resolved after that. Tried PAP for couple of months but dry mouth made it intolerable. Cardiovascular: Negative for chest pain, palpitations and leg swelling. Gastrointestinal: Negative for abdominal pain, anal bleeding, blood in stool and constipation. Has sporadic diarrhea with resolution spontaneously. Had colo just prior to transplant and had prior also. Endocrine: Negative for polydipsia and polyphagia. Genitourinary: Positive for frequency. Negative for dysuria, flank pain and hematuria. Notes nocturia q 2-3 hours. Musculoskeletal: Positive for gait problem and joint swelling. Skin: Negative for pallor and rash. Allergic/Immunologic: Negative for environmental allergies and immunocompromised state. Neurological: Negative for syncope, speech difficulty and light-headedness. Hematological: Negative for adenopathy. Bruises/bleeds easily. On Plavix after he had possible CVA with multiple defects seen. Prolonged monitoring of his heart for a month showed no arrhythmia other than premature beats and so anticoagulation was stopped. Has interrupted Plavix for 10 days in past without adverse events. Psychiatric/Behavioral: Negative for decreased concentration, dysphoric mood and hallucinations. Allergies: No Known Allergies Physical Exam: Last Set of Vitals and Range over past 24 hours: Last value Range last 24 hrs Temperature Temp: -- Heart Rate Heart Rate: 62 Heart Rate: [62-63] Blood Pressure BP: 167/64 BP: (167)/(64) Respiratory Rate Resp: -- SpO2 SpO2: 97 % SpO2: [97 %] Body mass index is 32.71 kg/(m^2). Height: 177.8 cm (5' 10) Physical Exam Constitutional: He is oriented to person, place, and time. He appears well- developed. No distress. HENT: Head: Atraumatic. Hypertrophic skin over the nose. Eyes: Right eye exhibits no discharge. Left eye exhibits no discharge. No scleral icterus. Neck: Neck supple. No JVD present. Cardiovascular: Normal rate and normal heart sounds. Exam reveals no gallop and no friction rub. No murmur heard. S1 S2 irregular with Premature beats with extrasystole Pulmonary/Chest: Effort normal and breath sounds normal. No stridor. No respiratory distress. He has no wheezes. He has no rales. He exhibits no tenderness. Abdominal: Soft. Bowel sounds are normal. He exhibits no mass. There is no tenderness. There is no rebound and no guarding. Musculoskeletal: He exhibits no edema. Right knee extension is near full with no drift, flexion to 100. Antalgic gait favors this knee. Neurological: He is alert and oriented to person, place, and time. Skin: Skin is warm and dry. He is not diaphoretic. No pallor. Psychiatric: He has a normal mood and affect. His behavior is normal. Judgment and thought content normal. Lab Results Component Value Date WBC 9.8 (H) 11/04/2017 RBC 5.16 11/04/2017 HGB 15.7 11/04/2017 HCT 45.1 11/04/2017 MCV 87.4 11/04/2017 MCH 30.4 11/04/2017 MCHC 34.8 11/04/2017 PLATELET 272 11/04/2017 RDWCV 13.2 11/04/2017 Lab Results Component Value Date NA 137 11/04/2017 K 3.8 11/04/2017 CL 99 11/04/2017 CO2 24 11/04/2017 BUN 21 (H) 11/04/2017 CREATININE 1.39 11/04/2017 GLUCOSE 129 11/04/2017 MAGNESIUM 0.68 (L) 09/09/2017 CALCIUM 9.3 11/04/2017 PHOS 2.5 09/09/2017 Lab Results Component Value Date PT 11.9 11/04/2017 INR 1.1 11/04/2017 PTT 30 11/04/2017 Lab Results Component Value Date HA1C 5.1 09/09/2017 Estimated Creatinine Clearance: 60.4 mL/min (based on Cr of 1.39). EKG (image reviewed): Sinus rhythm with Premature atrial complexes with Aberrant conduction Left anterior fascicular block Xray knees - The appearance is consistent with osteoarthritis though the joint space narrowing is asymmetric and involves the medial compartment on the right and lateral compartment on the left. A/P 1. Preop examination 2. Primary osteoarthritis of right knee Referral to Physical Therapy 3. H/O kidney transplant 4. Personal history of 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 therapy He finds his knee impairing his activities and elects to proceed with TKA. His last A1c is in normal range. He will confirm the dose of glipizide he is taking. His BP is higher today but was lower onprior visit at 136/71. Major Risk Factor per the Revised Cardiac Risk Index (Bold if present) - CAD, CHF, CVA or TIA, DM2 on insulin, or a Creatinine >2. He had kidney transplant. Risk diagnosis for MACE (major adverse cardiovascular event = Myocardial infarction, pulmonary edema, ventricular fibrillation, primary cardiac arrest, or complete heart block.) : Low <1%. The patient describes a functional status of equal to 4METs and more (yard work, home maintenance, not doing his walks outdoors as his knee pain has stopped that) and based on the ACC/AHA 2014 guideline no further cardiovascular testing is indicated. ARISCAT/CANET Score - estimates the risk of postoperative pulmonary complications as being low ~3.5%. STOP BANG Score - ARIELLA diagnosed but resolved after his transplant and not on CPAP now. Per the ACS NSQIP calculator I estimated the following. He has tolerated the Plavix interruption inpast and will stop it 7 days prior to surgery. He will continue his Cellcept, Prograf, Magnesium and Synthroid on morning of surgery. RECCO: Continue his Cellcept, Prograf, Magnesium and Synthroid Resume KPhos, Flomax FSBS q 4 with sensitive correction Humalog Resume Glipizide when tolerating po intake well. AVOID NSAID use unless approved per Dr. Eagle Administer IVF postoperatively as recommended per Dr. Eagle documented in this encounter Plan of Treatment Upcoming Encounters Date Type Department Care Team (Late st Contact Info) Description 04/15/2024 10:00 AM EDT Hospital Encounter [place] [address] Arrived Scheduled Referrals Name Type Priority Associated Diagnoses Orde r Schedule Referral to Physical Therapy Outpatient Referral Routine Primary osteoarthritis of right knee Ordered: 11/04/2017 documented as of this encounter Goals Goal Patient Goal Type Associated Problems Recent Progress Patient-Stated? Author DH Home Medication Compliance and Understanding Patient Facing Action Plan On track( 017 10:41 AM EDT) No Selena Cisneros, [facility] Note: Patient Goal: Clear hepatitis C Timeframe to meet goal: within 12 weeks of therapy documented as of this encounter Visit Diagnoses Diagnosis Preop examination Preoperative examination, unspecified Primary osteoarthritis of right knee Primary localized osteoarthrosis, lower leg H/O kidney transplant Kidney replaced by transplant Personal history of 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 therapy documented in this encounter Care Teams Linotype Machinist Apprentice Relationship Specialty Start Date End Date Urbano Denis DO [address] [place] [address] PCP - General 09/03/12 03/17/22 Ruchi Valles RN Nurse Clinic Transplant Surgery 07/30/15 documented as of this encounter
--- OUTSIDE RECORDS SUMMARY | 2024-02-14 11:25 | XMS_ITS | Encounter Summary ---
Author Organization [facility] Address [facility] [place] [place] [address] Care Team Providers Care Sweeping Compound Blender Name Role Phone AdeelUrbano boland Primary Care Provider Reason for Visit * Reason Comments Knee Pain right Encounter Details Date Type Department Care Team (Latest Contact Info) Description 11/19/2017 12:10 PM EDT Office [place] [address] Breezy Arauz MD [facility] [address] [place] [address] Primary osteoarthritis of right knee; Chronic pain of right knee Social History Tobacco Use Types Packs/Day Years [...] Sign Reading Time Taken Comments Blood Pressure 124/71 11/19/2017 12:30 PM EDT Pulse 63 11/19/2017 12:30 PM EDT Temperature - - Respiratory Rate - - Oxygen Saturation - - Inhaled Oxygen Concentration - - Weight 104.7 kg (230 lb 14. 4 oz) 11/19/2017 12:30 PM EDT actual Height 177.8 cm (5' 10) 11/19/2017 12: 30 PM EDT pt reported Body Mass Index 33.13 11/19/2017 12:30 PM EDT documented in this encounter Progress Notes * Brezey Arauz MD - 11/19/2017 12:10 PM EDT Arthroplasty History/Previous Knee Surgery: 1. none This note is recorded by BREEZY ARAUZ MD acting as a scribe for Dr. Dane Arauz . PREOPERATIVE VISIT Interval History: Cody Bolden is a pleasant 67 y.o. year old male with a history of severe osteoarthritis of the right knee being seen today to discuss a RIGHT total knee arthroplasty. His history and physical exam were reviewed in detail. His history in regards to his knee was once again discussed and is outlined in a previous note. He states the knee pain and disability is unchanged since their previous visit. They have reviewed their options and at this point are expressing a desire to proceed with surgery. He does not endorse a history of DVT/PE or clotting Physical Exam: Exam is previously documented and is essentially unchanged. Knee ROM: Extension:0 Flexion: 120 Inspection of his skin on the operative leg demonstrates no skin breakdown. Significant Medical Comorbidities Patient Active Problem List Diagnosis Code ??? [...] hepatitis) K73.2 ??? Prophylactic immunotherapy Z29.8 ??? halfway current use of 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 drug Z79.899 ??? Vitamin D deficiency E55.9 ??? Primary osteoarthritis of right knee M17.11 ??? Debility R53.81 ??? Pain of right lower extremity M79.604 ??? Obesity (BMI 30.0-34.9) E66.9 VITALS: BP Readings from Last 1 Encounters: 11/19/17 124/71 Pulse Readings from Last 1 Encounters: 11/19/17 63 Height: 177.8 cm (5' 10) (pt reported) Weight: 104.7 kg (230 lb 14.4 oz) (actual) Body mass index is 33.13 kg/(m^2). Relevant Lab Studies Lab Results Component Value Date WBC 9.8 (H) 11/04/2017 HGB 15.7 11/04/2017 HCT 45.1 11/04/2017 PLATELET 272 11/04/2017 CREATININE 1.39 11/04/2017 BUN 21 (H) 11/04/2017 NA 137 11/04/2017 K 3.8 11/04/2017 INR 1.1 11/04/2017 Recent Labs 09/09/17 1003 HA1C 5.1 No results for input(s): ALBUMIN in the last 168 hours. Estimated Creatinine Clearance: 60.8 mL/min (based on Cr of 1.39). Blood Type: AB Pos Questionnaire Response [facility] Surgical Preop Visit 11/19/2017 PROMIS-10 General Health Very Good PROMIS-10 Quality of Life Very Good PROMIS-10 Physical Health Very Good PROMIS-10 Mental Health Very Good PROMIS-10 Social Activity Very Good PROMIS-10 Everyday Activities Completely PROMIS-10 Pain 2 PROMIS-10 Fatigue Mild PROMIS-10 Social Roles Very Good PROMIS-10 Anxious or Depressed Never PROMIS PHYSICAL SCORE (range 16-68) 54.1 PROMIS MENTAL SCORE (range 21-68) 56 Treatments Tried Heat and ice therapy, Brace, Walking aids (e.g.cane, walker), Medicines applied onthe skin (topical) Prior Surgery arthroscopic 2005 KOOS JR Scores 65.99 TKA Grade 4 Pain in other KNEE None Back pain at this moment None Health Literacy Quite a bit [facility] Response 11/19/2017 KOOS JR Scores 65.99 Spine [facility] Response 11/19/2017 KOOS JR Scores 65.99 Radiographic evidence of joint damage: [0= normal; 1=minimal ; 2= some osteophytes , some narrowing ; 3= moderate osteophytes, significantnarrowing, mild deformity; 4= large osteophytes, marked narrowing, obvious deformity]: 4= large osteophytes, marked narrowing, obvious deformity Assessment and Plan: This is a pleasant 67 y.o. year-old male who presents for a preoperative appointment today for RIGHT knee OA. I had a long discussion with him regarding the risks and benefits of total knee arthroplasty. I indicated that in my opinion, this is the treatment option most likely to restore a more normal, pain-free level of function and that we have exhausted reasonable non-operative alternatives. I used total knee implants to demonstrate how I perform the procedure and all of their questions were answered. Mr. Bolden expressed a desire to pursue this option. We then discussed in great detail the risks associated with the proposed surgery. These included but were not limited to: bleeding (which may or may not require transfusion), infection, deep venous thrombosis, pulmonary embolus, prosthetic failure, loosening, prosthetic fracture, femur, tibia or patella fracture, dislocation, leg-length inequality, persistent pain, medical complications (including cardiac, respiratory and neurologic complications), anaesthetic complications, and . The patient seemed to understand the nature of this procedure's risks. We also discussed the likely benefit of improved stride length, improved range of motion, decreased pain, decreased need for pain medications and decrease functional limitations. The patient is aware that it would take on average of one to two days in the hospital, followed by approximately 12-18 months to full rehabilitation. The patient was seen and evaluated by Dr. Orlando Stafford, our Orthopaedic claims clerk, to help with perioperative optimization and he felt that it was appropriate to proceed with surgery. I reviewedthe labs and did not identify anything that would warrant surgical delay. We discussed DNR status and he is a Full Code We reviewed options for postoperative DVT prophylaxis, based on AAOS guidelines. We discussed the pros and cons of different anticoagulants in terms of effectiveness and clot / embolus preventions vs. risks of bleeding and wound complications. We also reviewed their preferences regarding use of blood products and confirmed that while we would endeavor to minimize the risks of needing any transfusions, if circumstances were such that one ormore were indeed required, he would NOT refuse a blood transfusion. Opioid PDMP 11/19/2017 [place] PDMP Query Date 11/16/2017 Cody Bolden will be prescribed a prescription opioid for the treatment of acute post-operative pain related to Orthopedic surgery. Cody Bolden will be advised to take the smallest dose possible to control their pain and as their pain improves to take smaller doses and increase the time between doses. In addition to this medication, non-opioid medications will be prescribed for adjunct treatment of their pain. Non-pharmacological treatment such as ice, elevation and activity modification will be recommended as appropriate. The Acute Opioid Therapy Informed Consent form has been completed and sent to medical records for scanning to chart. We discussed with them the possible discharge scenarios including going home versus needing to go to a rehab facility depending on how well their mobility progresses post-operatively. TJA Clotting and Bleeding Assessment Genetic predisposition or history of DVT or PE: No Hypercoaguable state?: No History of bleeding disorder?: No GI bleed or history of hemorrhagic stroke within the past 2 years: No Patient on lifelong anticoagulant for other reasons: Other, see comment (for CVA) Discharge anticoagulation plan: Plavix Infection Prevention Patient demonstrated appropriate skin integrity/infection knowledge level after instructions provided: Yes Patient demonstrated appropriate dental prophylaxis knowledge level after instructions provided: Yes Patient demonstrated appropriate understanding of pre-op chlorhexideine wash and mupirocin ointmentuse after instructions provided: Yes General Assessment Total joint preparedness for surgery: Received binder, Attended class, 1:1 Patient understands when to call the office pre-op and post-op: Verbalizes understanding Assistive device(s) used pre-op: Straight cane Patient currently on narcotics: No Patient has narcotic agreement signed: No Prep for Surgery Advance Directive: Has one (on file in eD-H) Recommend referral to Patient Financial Services: No Living arrangement: House Home layout: Two level, Stairs to enter w/o rails, Able to live on main level Number of stairs within home: 0 Who will provide post-op care and support: Mara, his . Who will provide transportation home: Mara Patient's desired discharge disposition: Home into OP PT Top 3 nursing choice facilities: No selection VNA preference: No selection. Outpatient PT preference: [facility] Discharge barriers and challenges: None Any remaining questions were solicited from the patient and answered. Mr. Bolden wishes to proceed accordingly and informed consent was subsequently obtained for a RIGHT total knee arthroplasty. Understands increased risk with hx of transplant Oxy for shoulder surgery in the past I reviewed and included below all recommendations offered by Doctor Stafford: RECCO: Continue his Cellcept, Prograf, Magnesium and Synthroid Resume KPhos, Flomax FSBS q 4 with sensitive correction Humalog Resume Glipizide when tolerating po intake well. AVOID NSAID use unless approved per Dr. Eagle Administer IVF postoperatively as recommended per Dr. Eagle ?? We will avoid discharge on Naprosyn secondary to concern for potential adverse events. I ensured that the patient has the needed samples of hibiclens wash to use both the night before and the morning of the anticipated surgery. I have personally evaluated the patient and agree with the above note as recorded by BREEZY ARAUZ MD. Dane Arauz MD 11/19/2017 The below has been copied from a prior note: October 05, 2017 I had the pleasure of evaluating Cody Bolden in clinic in conjunction with one of my associate providers. In brief this is a pleasant 67-year-old gentleman who is status post a renal transplant now on Prograf who also has a history of type 2 diabetes with a hemoglobin A1c at his last check of 5.1, history of hepatitis C treated with Harvoni, and a vague history of having multiple lesions in his head which is prompted chronic Plavix use who presents with a chief complaint of right knee pain. He is followed by Dr. Eagle for his renal transplant and reports overall doing well. He states initially there was a problem with the ureter and he had a have surgery to reconnect the kidney directly to the bladder but since this is kidney has functioned fine. In regards to his knees had progressive alfonso n. He reports the pain is compromising the quality of his life. 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 In any event he is got severe degenerative changes radiographically predominantly in the medial compartment. On exam he has palpable osteophytes along the medial joint line and along the medial femoral condyle. He has pain which is reproducible on exam with palpation of the medial femoral condyle and certainly I think he is got significant limiting arthritis. We discussed the risks and benefits of surgery and the increased risk due to his medical comorbidities but I do think proceeding with surgery is a reasonable option. At this point he like to go ahead and schedule surgery and I will have him meet with the surgical schedulers today. We also discussed preoperative medical clearance by Dr. Stafford. He would like to proceed with surgery. All questions were answered. Breezy Arauz MD, MS Chief, Division of Adult Reconstructive Car PainterChief Medical Technologist of Orthopaedics Department of Orthopaedics [facility] [phone] [email or web address] documented in this encounter Plan of Treatment Upcoming Encounters Date Type Department Care Team (Late st Contact Info) Description 04/15/2024 10:00 AM EDT Hospital Encounter [place] [address] Arrived documented as of this [...] as of this encounter Visit Diagnoses Diagnosis Primary osteoarthritis of right knee Primary localized osteoarthrosis, lower leg Chronic pain of right knee documented in this encounter Care Teams Sweeping Compound Blender Relationship Specialty Start Date End Date Urbano Denis DO [address] [place] [address] [address] [place] [address] PCP - General 09/03/12 03/17/22 Ruchi Valles RN Nurse Clinic Transplant Surgery 07/30/15 documented as of this encounter
--- OUTSIDE RECORDS SUMMARY | 2024-02-14 11:25 | XMS_ITS | Encounter Summary ---
Author Organization [facility] [place] [address] Care Team Providers Care Warehouse Delivery Manager Name Role Phone AdeelUrbano Primary Care Provider [phone] Reason for Visit * Auth/Cert Specialty Diagnoses / Procedures Referred By Humberto t Referred To Contact Diagnoses Presence of right artificial knee joint Osteoarthritis of the knee Procedures PRO TOTAL KNEE ARTHROPLASTY TOTAL KNEE ARTHROPLASTY (WRVU 20.72) MODIFIER, ATTUNE CURVED FIXED PLATFORM, DEPUY Referral ID Status Reason Start Date Expiration Date Visits Re quested Visits Authorized [id number] 1 Encounter Details Date Type Department Care Team (Late st Contact Info) Description 11/25/2017 10:29 AM EDT Anesthesia [place] [address] Mariangel Varela MD [facility] [place] [address] Anesthesia Record Procedure Summary Procedure Name Responsible Anesthesiologist Anesthesia Start Time Anesthesia Stop Time TOTAL KNEE ARTHROPLASTY (WRVU 19.6) (Right: Knee) Mariangel Varela MD 11/25/17 1029 11/25/17 1236 Events Date Time Event Comment 11/25/2017 1029 Start 1030 AN Verify 1031 An Start Data 1038 Spinal 1041 1048 Anesthesia Ready 1106 Procedure Start 1229 an stop data 1236 Stop 1237 Recovery or ICU Handoff Alanna ent care was transferred to the destination unit staff after review of the patient's medical history, current anesthetic/surgical status and plan, according to the Provider Handoff Checklist. Meds Name Total Midazolam 4 mg Propofol 40 mg Propofol INF 469.35 mg BUpivacaine 0.75% spinal 15 mg ceFAZolin (ANCEF) 2g in dextrose 5% 100 mL 2 g tranexamic acid (CYKLOKAPRON) 1,463 mg i n sodium chloride 0.9% 114.63 mL 87,048.5 mg Glycopyrrolate 0.2 mg lactated Ringers infusion 1,000 mL 500 m L * Agents Name O2 Air N2O Sevoflurane (et) O2 Auxiliary Flowmeter 1 * Blood No [...] Kandace Eduardo RN 06/17/18 1547 by Karly Parra, JADEN Incision 05/20/16; abdomen; 06/17/18; 1547 05/20/16 0000 by Nuris Andersen RN 06/17/18 1547 by Karly Parra, JADEN (RETIRED) Peripheral IV Line - Single Lumen 11/25/17; 0940; metacarpal vein (top of hand), right; 20 gauge, 1 in length; Patricia Gonzalez RN; distraction, appears comfortable, tolerated well, age-appropriate response; 11/26/17; 1329 11/25/17 0940 by Jerri Sanchez RN 11/26/17 1329 by Marley Castillo RN Incision 11/25/17; 1105; knee ; 06/17/18; 1547 11/25/17 1105 by Sangeeta Maloney RN 06/17/18 1547 by Karly Parra RN documented in this encounter Social History [...] OR Notes * Anesthesia Postprocedure Evaluation - Mariangel Varela MD - 11/25/2017 1:41 PM EDT [facility] Department of Anesthesiology Post-procedure Note Patient: Cody Bolden Procedure Summary Date Anesthesia Start Anesthesia Stop Room / Location 11/25/17 1029 [facility] OR 10 / [facility] MAIN OR Procedure Diagnosis Surgeon Responsible Provider TOTAL KNEE ARTHROPLASTY (WRVU 20.72) (Right Knee); MODIFIER, ATTUNE CURVED FIXED PLATFORM, DEPUY (Right Knee) (Osteoarthritis of the knee) Breezy Dale MD Sites, Brian D, MD All Anesthesia Providers: Anesthesiologist: Mariangel Varela MD BATHING SUIT MAKER: Marcio Argueta CRNA Most Recent Vitals: 11/25/17 1315 BP: 167/77 Pulse: 60 Resp: 22 Temp: SpO2: (!) 88% Pain Patient Location: PACU/[facility] Level of Consciousness: Awake and Alert Pain Management: Satisfactory Analgesia PONV: None Cardiovascular Status: At Baseline Respiratory Status: At Baseline Postoperative Fluid Status: Intravascular EUvolemia Possible Anesthetic Complications: NONE apparent at time of evaluation Final Primary Anesthesia Type: Spinal (The anesthetic type performed was the same as planned.) Comments: I have evaluated the patient in the postoperative period. The patient has no major complaints and there are no serious complications evident. * Anesthesia Procedure Notes - Marcio Argueta CRNA - 11/25/2017 10:49 AM EDTAssociated Order(s): ANE NEURAXIAL UPDATED Procedure: Neuraxial Block Primary Anesthetic Type: Spinal The patient was greeted. The sedation plan, its benefits, risks and alternatives were discussed with the patient. The patient has consented to the procedure. The medical history and chart were reviewed. The timeout was performed. Start time: 11/25/2017 10:36 AM End time: 11/25/2017 10:39 AM Patient Location: Operating Room Patient Prep Position: Sitting Prep: Hat, Mask, Hand Hygiene, Sterile Gloves, Chlorhexidine and Patient Draped Injection technique: single-shot Skin Anesthetic Lidocaine 1% 2 ml Procedure Technique Level of needle insertion: L4-5 Needle approach: midline Needle Type: [facility] Gauge: 25 Needle length: 3.5 in Number of attempts: 1 Intrathecal Injection The patient received the following medication/s as an intrathecal injection: Bupivacaine 0.75% w dextrose 2 ml Events/Notes Events: None Resident/BATHING SUIT MAKER: MARCIO ARGUETA Second Resident/BATHING SUIT MAKER: Fellow: Attending Physician: MARIANGEL VARELA ~~~~~~~~~~~~~~~~~~~~~~~~~~~~~~~~~~~~~~~~~~~~~~~~~~~~~~~~~~~~ * Anesthesia Procedure Notes - Javi Baker MD - 11/25/2017 10:23 AM EDT Associated Order(s): ANESTHESIA BLOCK Procedure: Anesthesia Block Block: Post-op Pain Control, adductor canal block Start time: 11/25/2017 10:15 AM End time: 11/25/2017 10:18 AM Patient Location: Block Room Indication/Prep Position: supine Prep: chlorhexidine, mask, cap, sterile gloves, hand hygeine, patient draped Laterality: right Skin Medication lidocaine 1% 5 ml Injection Information Ultrasound Guidance: live and in-plane Ultrasound guidance was used to identify the targeted neuronal structure. Ultrasound was also used to identify needle positon and to identify surrounding tissue (bone, muscle, and blood vessels) to prevent inadvertent intraneural or intravascular needle placement and injection. The spread of local anesthetic was confirmed with live ultrasound imaging. Injection technique:single-shot Needle Length: 10 cm Gauge: 21 Needle Type: A-jplah-ifbwq Medication injection made incrementally with aspirations. Nerve infiltration solution through a needle Bupivicaine 0.5% 20 mL Additional Notes No complications or paresthesias. Patient tolerated the procedure well. Intermittent aspiration negative. Resident: Sterling Resident: Fellow: JAVI BAKER Attending Physician: ERIC HAMEED ~~~~~~~~~~~~~~~~~~~~~~~~~~~~~~~~~~~~~~~~~~~~~~~~~~~~~~~~~~~~ * Anesthesia Preprocedure Evaluation - Javi Baker MD - 11/25/2017 7:11 AM EDT Images from the original note were not included. Pre-Anesthesia Evaluation for: Cody Bolden a 67 y.o. male. Procedure(s): TOTAL KNEE ARTHROPLASTY (WRVU 20.72) MODIFIER, ATTUNE CURVED FIXED PLATFORM, DEPUY Patient Active Problem List Diagnosis ??? Obesity (BMI 30.0-34.9) ??? Primary osteoarthritis of right knee ??? Debility ??? Pain of right lower extremity ??? Vitamin D deficiency ??? 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 FPC current use of 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 drug ??? CAH [...] NEPHRECTOMY performed by Franko Larkin MD at [facility] OR Social History Substance Use Topics ??? Smoking status: Former Smoker Types: Cigars Quit date: 01/02/2015 ??? Smokeless tobacco: Never Used Comment: cigars, one weekly ??? Alcohol use No History Drug Use ??? Yes ??? Special: Marijuana No Known Allergies Medications: MAR and/or home medications have been reviewed. Physical Exam: There were no vitals filed for this visit. There is no height or weight on file to calculate BMI. Airway Assessment: Mallampati: II TM distance: >3 FB Neck ROM: full Cardiovascular Assessment: Rhythm: regular (-) murmur PE comment: Occasional PAC Pulmonary Assessment: breath sounds clear to auscultation Dental Assessment: Misc Assessment: IV access: Peripheral line Anesthesia Plan: ASA 3 spinal, 67yo male presenting for right TKA. 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 Cr 1.39. On Profraf/Cellcept -DM2 - HbA1C 5.1 -ureteral stricture with chronic UTI s/p ureteral reconstruction -GERD -CVA without residual deficits - on Plavix, last took 8 days ago -ARIELLA - reportedly resolved/improved after renal transplant, no witnessed apneic events at night Anesthetic Hx: no prior issues; Mac3 Grd1. Had epidural for ureteral recon EKG: sinus rhythm with PACs and LAFB No recent URI No active GERD Tolerates >4 METS without cardiopulmonary symptoms Nuclear stress 2014 EF 60%, 1+ MR 1+ TR, no ischemia Appropriately NPO Pre-op labs: Cr 1.39, PLT 272k, INR 1.1. AM glucose 220 Plan: spinal with AC block, GA backup. Intra-op glucose mgmt The patient was informed of the risks of anesthesia, and consent was obtained. Region - Other Informed Consent: Anesthetic plan and risks discussed with patient. Plan discussed with attending. PAT Staff Note documented in this encounter Plan of Treatment Upcoming Encounters Date Type Department Care Team (Late st Contact Info) Description 04/15/2024 10:00 AM EDT Hospital Encounter Non[place] [phone] Arrived documented as of this encounter Goals [...] Procedure Name Priority Date/Time Associated Diagnosis Comments ANE NEURAXIAL UPDATED Routine 11/25/2017 10:51 AM EDT Procedure Note - Marcio Argueta CRNA - 11/25/2017 10:49 AM EDTThis note is in progress. Procedure: Neuraxial Block Primary Anesthetic Type: Spinal The patient was greeted. The sedation plan, its benefits, risks andalternatives were discussed with the patient. The patient has consentedto the procedure. The medical history and chart were reviewed. Thetimeout was performed. Start time: 11/25/2017 10:36 AM End time: 11/25/2017 10:39 AM Patient Location: Operating Room Patient Prep Position: Sitting Prep: Hat, Mask, Hand Hygiene, Sterile Gloves, Chlorhexidine and PatientDraped Injection technique: single-shot Skin Anesthetic Lidocaine 1% 2 ml Procedure Technique Level of needle insertion: L4-5 Needle approach: midline Needle Type: [facility] Gauge: 25 Needle length: 3.5 in Number of attempts: 1 Intrathecal Injection The patient received the following medication/s as an intrathecalinjection: Bupivacaine 0.75% w dextrose 2 ml Events/Notes Events: None Resident/BATHING SUIT MAKER: MARCIO ARGUETA Second Resident/BATHING SUIT MAKER: Fellow: Attending Physician: MARIANGEL VARELA ~~~~~~~~~~~~~~~~~~~~~~~~~~~~~~~~~~~~~~~~~~~~~~~~~~~~~~~~~~~~ ANESTHESIA BLOCK Routine 11/25/2017 10:2 3 AM EDT Procedure Note - Javi Baker MD - 11/25/2017 10:23 AM EDTThis note is in progress. Procedure: Anesthesia Block Block: Post-op Pain Control, adductor canal block Start time: 11/25/2017 10:15 AM End time: 11/25/2017 10:18 AM Patient Location: Block Room Indication/Prep Position: supine Prep: chlorhexidine, mask, cap, sterile gloves, hand hygeine, patientdraped Laterality: right Skin Medication lidocaine 1% 5 ml Injection Information Ultrasound Guidance: live and in-plane Ultrasound guidance was used to identify the targeted neuronalstructure. Ultrasound was also used to identify needle positon and toidentify surrounding tissue (bone, muscle, and blood vessels) to preventinadvertent intraneural or intravascular needle placement and injection.The spread of local anesthetic was confirmed with live ultrasoundimaging. Injection technique:single-shot Needle Length: 10 cm Gauge: 21 Needle Type: D-qiagm-fdsnc Medication injection made incrementally with aspirations. Nerve infiltration solution through a needle Bupivicaine 0.5% 20 mL Additional Notes No complications or paresthesias. Patient tolerated the procedure well.Intermittent aspiration negative. Resident: Second Resident: Fellow: JAVI BAKER Attending Physician: ERIC HAMEED ~~~~~~~~~~~~~~~~~~~~~~~~~~~~~~~~~~~~~~~~~~~~~~~~~~~~~~~~~~~~ documented in this encounter Visit Diagnoses Not on filedocumented in this encounter Administered Medications Inactive Administered Medications - up to 3 most recent administrations Medication Order MAR Action Action Date Dose Rate Site BUpivacaine 0.75% in dextrose 8.25% (intrathecal) (SENSORCAINE) 0.75 % (7.5 mg/mL) injection Intrathecal, PRN, Starting on Thu11/25/17 at 1038, Until Thu11/25/17 at 1342, Anesthesia Intra-op, Routine Given 11/25/2017 10:38 AM EDT 15 mg ceFAZolin (ANCEF) 2g in dextrose 5% 100 mL 2 g, Intravenous, EVERY 3 HOURS, 1 dose, First dose on Thu11/25/17 at 1015, Administer over 30 Minutes, Redose after 3 hours., Intra-Operative (Intra-Procedure), Indication for (Active or Suspected): Prophylaxis Given 11/25/2017 10:48 AM EDT 2 g glycopyrrolate (ROBINUL) multi-dose injection PRN, Starting on Thu11/25/17 at 1101, Until Thu11/25/17 at 1342, Anesthesia Intra-op, Routine Given 11/25/2017 11:01 AM EDT 0.2 mg midazolam (PF) (VERSED) 1 mg/mL multi-dose injection Intravenous, PRN, Starting on Thu11/25/17 at 1031, Until Thu11/25/17 at 1342, Sleep, Anesthesia Intra-op, Routine Given 11/25/2017 10:55 AM EDT 1 mg Given 11/25/2017 10:38 AM EDT 1 mg Given 11/25/2017 10:36 AM EDT 1 mg propofol (DIPRIVAN) 10 mg/mL bolus injection (Anesthesia) Intravenous, PRN, Starting on Thu11/25/17 at 1104, Until Thu11/25/17 at 1342, Anesthesia Intra-op Given 11/25/2017 11:04 AM EDT 20 mg Given 11/25/2017 11:03 AM EDT 20 mg propofol (DIPRIVAN) infusion Intravenous, CONTINUOUS PRN, Starting on Thu11/25/17 at 1045, Until Thu11/25/17 at 1342, Anesthesia Intra-op, Routine New Bag 11/25/2017 10:45 AM EDT 50 mcg/kg/min 31.3 mL/hr tranexamic acid (CYKLOKAPRON) 1,463 mg in sodium chloride 0.9% 114.63 mL 1,463 mg (rounded from 1,462.5 mg = 15 mg/kg/dose ? 97.5 kg), Intravenous, ONCE, 1 dose, On Thu11/25/17 at 1015, Administer over 30 Minutes, Day of Surgery (Day of Procedure) Rate/Dose Change 11/25/2017 12:00 PM EDT 1,463 mg/kg/hr 10940.4 mL/hr New Bag 11/25/2017 10:48 AM EDT 1,463 mg documented in this encounter Care Teams Warehouse Delivery Manager Relationship Specialty Start Date End Date Urbano Denis DO [address] [place] [address] [address] [place] [address] PCP - General 09/03/12 03/17/22 Ruchi Valles RN Nurse Clinic Transplant Surgery 07/30/15 documented as of this encounter
--- OUTSIDE RECORDS SUMMARY | 2024-02-14 11:25 | XMS_ITS | Encounter Summary ---
[place] [address] Care Team Providers Care Senior Medical Director Name Role Phone AdeelUrbano toscano Primary Care Provider [phone] Reason for Visit * Reason Onset Date Comments Medication Refill 12/04/2017 Encounter Details Date Type Department Care Team (Late st Contact Info) Description 12/04/2017 [place] [address] Sonia Mota RN S/P R TKA 11/25/17 Dr. Dale Social History Tobacco Use Types Packs/Day Years [...] Miscellaneous Notes * Telephone Encounter - Sonia Mota RN - 12/04/2017 11:19 AM EDT Patient aware medication has been sent to [facility] pharmacy and that they will be contacting him to verify demographics before mailing it out. * Telephone Encounter - Sonia Mota RN - 12/04/2017 10:18 AM EDT Narcotic pain medication refill request Person calling for request: Cody Gomez Yuan Mailing address: [address] [place] [address] [place] [address] Surgeon: Dr. Dale Case: right total knee replacement DOS: 11/25/2017 Learning Needs Assessment done within 12 months (no change identified): Yes Requested medication: oxycodone 5mg Last refill: 11/26/2017. Take 1 tablet every 4 hours as needed, #70, 18 left. Patient is taking medication: 1 every 4 hours. He sometimes needs 2 at a time. He is also taking tylenol Assessment: increased pain since starting PT. No issues with bowels. Patient is requesting the prescription be sent to [facility] pharmacy and then have the medication mailed. Last appointment: 11/25/2017 Future appointment: 01/04/2018 Last narcotic query: 12/04/2017 documented in this encounter Plan of Treatment Upcoming Encounters Date Type Department Care Team (Late st Contact Info) Description 04/15/2024 10:00 AM EDT Hospital Encounter Non-[place] [address] Arrived documented as of this encounter Goals Goal Patient Goal Type Associated Problems Recent Progress Patient-Stated? Author [facility] Medication Compliance and Understanding Patient Facing Action Plan On track( 017 10:41 AM EDT) No Selena Cisneros, [facility] Note: Patient Goal: Clear hepatitis C Timeframe to meet goal: within 12 weeks of therapy documented as of this encounter Visit Diagnoses Diagnosis S/P R TKA 11/25/17 Dr. Dale Knee joint replacement by other means documented in this encounter Care Teams Senior Medical Director Relationship Specialty Start Date End Date Urbano Denis DO [address] [place] [address] PCP - General 09/03/12 03/17/22 Ruchi Valles RN Nurse Clinic Transplant Surgery 07/30/15 documented as of this encounter
--- OUTSIDE RECORDS SUMMARY | 2024-02-14 11:25 | XMS_ITS | Encounter Summary ---
[place] [address] Care Team Providers Care Cabin Cleaner Name Role Phone Adeel Urbano KIRBY Primary Care Provider Encounter Details Date Type Department Care Team (Late st Contact Info) Description 11/19/2017 8:30 AM EDT Notes [place] [address] Social History Tobacco Use Types Packs/Day Years [...] AM EDT Hospital Encounter Non[place] [phone] Arrived documented as of this encounter Goals [...] on filedocumented in this encounter Care Teams Cabin Cleaner Relationship Specialty Start Date End Date Urbano Denis DO [address] [place], [place] [address]Y [facility] [address] [place] [address] PCP - General 09/03/12 03/17/22 Ruchi Valles RN Nurse Clinic Transplant Surgery 07/30/15 documented as of this encounter
--- OUTSIDE RECORDS SUMMARY | 2024-02-14 11:25 | XMS_ITS | Encounter Summary ---
[place] [address] Care Team Providers Care Civil Engineer In Training Name Role Phone Urbano Denis DO Primary Care Provider [phone] Encounter Details Date Type Department Care Team (Latest Contact Info) Description 12/18/2017 8:45 PM EDT - 12/18/2017 11:59 PM EDT [place] [address] Discharge Disposition: Home Social History Tobacco Use [...] Tablet Take 137 mcg by mouth daily. PROGRAF 1 mg Capsule Take two capsules in the morning and one at night. Kidney transplant 09/15/18. ICD code Z94.0 270 capsule 3 12/11/2017 11/15/2018 oxyCODONE (ROXICODONE) 5 mg TabletIndications:Pre sence of right artificial knee joint Take 1 tablet by mouth every 4 hours as needed for Pain. 50 tablet 12/04/2017 02/01/2018 gabapentin (NEURONTIN) 300 mg Capsule Take 1 capsule by mouth nightly for 28 days. 28 capsule 11/26/2017 12/24/2017 polyethylene glycol (MIRALAX) 17 gram Powder in [...] 364 days. 30 capsule 11 07/30/2017 07/29/2018 mycophenolate (CELLCEPT) 250 mg Capsule Take 250 mg twice daily. Kidney transplant 09/16/15. ICD code Z94.0 60 capsule 11 12/12/2016 12/21/2017 ascorbic acid, vitamin C, (VITAMIN C) 500 mg Tablet Take 1 tablet by mouth 3 times daily. 30 tablet 3 06/25/2016 12/27/2020 clopidogrel (PLAVIX) 75 mg Tablet Take 75 mg by mouth daily. 02/17/2020 documented as of this encounter Plan of Treatment Upcoming Encounters Date Type Department Care Team (Late st Contact Info) Description 04/15/2024 10:00 AM EDT Hospital Encounter Non-[place] [address] Arrived documented as of this encounter Goals [...] Name Priority Date/Time Associated Diagnosis Comments TACROLIMUS LEVEL Routine 12/18/2017 12:4 0 PM EDT documented in this encounter Results * Tacrolimus level (12/18/2017 12:40 PM EDT) Tacrolimus 5.2 ng/mL [facility] Comment: Trough therapeutic: ??5-15 ng/mL Performed by ultra-performance liquid chromatography tandem mass spectrometry (UPLCMS/MS). This test was developed and its performance characteristics determined by [facility]. It has not been cleared or approved by the FDA. The laboratory is regulated under CLIA as qualified to perform high-complexity testing. This test is used for clinical purposes. It should not be regarded as investigational or for research. Blood specimen (specimen) Venous Draw / Unknown 12/18/2017 12:40 PM EDT 12/21/2017 7:27 AM EDT Narrative Resulting Agency Comment Spec In Lab Tal Eagle MD CHEMISTRY ORDERAB LES [facility] [place] [id number] documented in this encounter Visit Diagnoses Not on filedocumented in this encounter Care Teams Civil Engineer In Training Relationship Specialty Start Date End Date Urbano Denis DO [address] [place] [address] PCP - General 09/03/12 03/17/22 Ruchi Valles RN Nurse Clinic Transplant Surgery 07/30/15 documented as of this encounter
--- OUTSIDE RECORDS SUMMARY | 2024-02-14 11:25 | XMS_ITS | Encounter Summary ---
Author Organization [facility] [place] [address] Care Team Providers Care Journeyman Glazier Name Role Phone Urbano Denis DO Primary Care Provider Encounter Details Date Type Department Care Team (Latest Contact Info) Description 11/04/2017 12:20 PM EDT [place] [phone] Pain of right lower extremity; Debility; Primary osteoarthritis of right knee Social History Tobacco Use [...] AM EDT Hospital Encounter Non[place] [phone] Arrived documented as of this encounter Goals Goal Patient Goal Type Associated Problems Recent Progress Patient-Stated? Author [facility] Medication Compliance and Understanding Patient Facing Action Plan On track( 017 10:41 AM EDT) No Selena Cisneros, [facility] Note: Patient Goal: Clear hepatitis C Timeframe to meet goal: within 12 weeks of therapy documented as of this encounter Procedures Procedure Name Priority Date/Time Associated Diagnosis Comments HEMOGRAM Routine 11/04/2017 12:53 PM EDT Pain of right lower extremity Debility Primary osteoarthritis of right knee DIFFERENTIAL, AUTOMATED Routine 11/04/2017 12:53 PM EDT Pain of right lower extremity Debility Primary osteoarthritis of right knee APTT Routine 11/04/2017 12:53 PM EDT Pain of right lower extremity Debility Primary osteoarthritis of right knee PROTHROMBIN TIME Routine 11/04/2017 12:5 3 PM EDT Pain of right lower extremity Debility Primary osteoarthritis of right knee CBC (WITH DIFF) Routine 11/04/2017 12:53 PM EDT Pain of right lower extremity Debility Primary osteoarthritis of right knee BASIC METABOLIC PANEL Routine 11/04/2017 12:53 PM EDT Pain of right lower extremity Debility Primary osteoarthritis of right knee documented in this encounter Results * (ABNORMAL) Differential, Automated (11/04/2017 12:53 PM EDT) Neutrophil % 63.8 % [facility] Neutrophil Absolute 6.24(H) 1.70 - 6.10 x10(3)/mc L [facility] Lymph % 24.1 % [facility] Lymphocytes Abs 2.4 0.9 - 3.2 x10(3)/mc L [facility] Monocyte % 7.3 % [facility] Monocyte Abs 0.7 0.3 - 0.9 x10(3)/mc L [facility] Eos % 3.4 % [facility] Eosinophils Abs 0.3 0.0 - 0.4 x10(3)/mc L [facility] Basophil % 0.8 % [facility] Baso Absolute 0.1 0.0 - 0.1 x10(3)/mc L [facility] Immature Gran % 0.60 % [facility] Comment: Immature granulocytes(IG's)percentage and absolute count will include metamyelocytes, myelocytes, and promyelocytes. Blood smears from CBCs yielding IG's will be scanned manually for concordance. If this scan disagrees with the automated IG or if promyelocytes are noted, a manual differential will be performed. Immature Gran Absolute 0.06(H) 0.00 - 0.04 x10(3)/mc L [facility] Blood specimen (specimen) 11/04/2017 12:53 PM EDT 11/04/2017 12:56 PM EDT Narrative Resulting Agency Comment Spec In Lab Breezy Dale MD HEMATOLOGY ORDERABL ES [facility] [place] [address] * (ABNORMAL) Hemogram (11/04/2017 12:53 PM EDT) White Blood Cell 9.8(H) 4.0 - 9.5 x10(3)/mc L [facility] Red Blood Cell 5.16 4.58 - 5.54 x10(6)/mc L [facility] Hemoglobin 15.7 13.7 - 16.5 gm/dL [facility] Hematocrit 45.1 40.5 - 48.5 % [facility] Mean Cell Volume 87.4 82.9 - 93.[address] [facility] Mean Cell Hemoglobin 30.4 27.5 - 32.[address] [facility] Mean Cell Hemoglobin Concentration 34.8 32.0 - 35.7 gm/dL [facility] Platelet 272 145 - 357 x10(3)/mc L [facility] RDW Standard Deviation 42.3 36.0 - 45.[address] [facility] RDW coefficient of variation 13.2 11.4 - 13.8 % [facility] Mean Platelet Volume 9.5 7.6 - 12.[address] [facility] NRBC% auto 0.0 % [facility] NRBC Absolute 0.000 0.000 - 0.000 x10(3)/mc L [facility] Blood specimen (specimen) 11/04/2017 12:53 PM EDT 11/04/2017 12:56 PM EDT Narrative Resulting Agency Comment Spec In Lab Breezy Dale MD HEMATOLOGY ORDERABL ES Performing Organization Address [facility] de Phone Number [facility] [place] [address] * APTT (11/04/2017 12:53 PM EDT) Partial Thromboplastin Time 30 25 - [address] [facility] Comment: The PTT is NOT appropriate for heparin monitoring. Use the Anti-Xa level for heparin monitoring (HEP UFH) or LMWH monitoring (HEP LMW). A PTT less than 37 seconds generally indicates adequate hemostasis. Blood specimen (specimen) 11/04/2017 12:53 PM EDT 11/04/2017 12:56 PM EDT Narrative Resulting Agency Comment Spec In Lab Breezy Dale MD HEMATOLOGY ORDERABL ES Performing Organization Address [facility] de Phone Number [facility] [place] [address] * Prothrombin Time (11/04/2017 12:53 PM EDT) Prothrombin Time 11.9 9.4 - 12.[address] [facility] International Normalization Ratio 1.1 [facility] Comment: An INR <2.0 indicates [...] depending on clinical circumstances. Blood specimen (specimen) 11/04/2017 12:53 PM EDT 11/04/2017 12:56 PM EDT Narrative Resulting Agency Comment Spec In Lab Breezy Dale MD HEMATOLOGY ORDERABL ES [facility] [place] [address] * (ABNORMAL) Basic Metabolic Panel (non-fasting) (11/04/2017 12:53 PM EDT) Glucose 129 65 - 199 mg/dL [facility] Comment:Diabetes: >=200 mg/d L plus symptoms Blood Urea Nitrogen 21(H) 10 - 20 mg/dL [facility] Creatinine 1.39 0.80 - 1.50 mg/dL [facility] [...] questions. Chloride 99 98 - 107 mmol/L [facility] Carbon Dioxide 24 22 - 31 mmol/L [facility] Anion Gap 14 5 - 15 mmol/L [facility] Calcium 9.3 8.5 - 10.5 mg/dL [facility] Est Glomerular Filtration Rate 51(L) >=60 [facility] Comment: The reported eGFR should be multiplied by 1.2 for patients. The MDRD is not an appropriate measure of renal function for patients with body mass extremes or in patients with acute kidney failure. http://[employer]/DHnkdep http://[employer].com/DHMCnkf Blood specimen (specimen) 11/04/2017 12:53 PM EDT 11/04/2017 12:56 PM EDT Narrative Resulting Agency Comment Spec In Lab Breezy Dale MD CHEMISTRY ORDERABLE S [facility] [place] [address] documented in this encounter Visit Diagnoses Diagnosis Pain of right lower extremity Debility Debility, unspecified Primary osteoarthritis of right knee Primary localized osteoarthrosis, lower leg documented in this encounter Care Teams Journeyman Glazier Relationship Specialty Start Date End Date Urbano Denis DO [address] [place] [address] PCP - General 09/03/12 03/17/22 Ruchi Valles RN Nurse Clinic Transplant Surgery 07/30/15 documented as of this encounter
--- OUTSIDE RECORDS SUMMARY | 2024-02-14 11:25 | XMS_ITS | Encounter Summary ---
Author Organization [facility] Address [facility] [place] [address] Care Team Providers Care Arborer Name Role Phone Adeel Urbano KIRBY Primary Care Provider [phone] Reason for Visit * Reason Comments Right Knee Pain * Consultation (Routine) - Specialty Diagnoses / Procedures Referred By Humberto flor Referred To Contact Orthopaedics Diagnoses Osteoarthritis of right knee, unspecified osteoarthritis type Tal Eagle MD [facility] [place] [address] Breezy Dale MD [facility] [place] [address] Referral ID Status Reason Start Date Expiration Date V isits Requested Visits Authorized [id number] Consult, Test & Treat 09/09/2017 09/09/2018 10 10 Encounter Details Date Type Department Care Team (Latest Contact Info) Description 10/05/2017 10:20 AM EDT Office [place] [address] Breezy Dale MD [facility] [place] [address] Pain of right lower extremity; Debility; Primary [...] Sign Reading Time Taken Comments Blood Pressure 136/71 10/05/2017 10:24 AM EDT Pulse 66 10/05/2017 10:24 AM EDT Temperature - - Respiratory Rate - - Oxygen Saturation - - Inhaled Oxygen Concentration - - Weight 97.5 kg (215 lb) 10/05/2017 10:24 AM EDT verbal Height 177.8 cm (5' 10) 10/05/2017 10:24 AM EDT verbal Body Mass Index 30.85 10/05/2017 10:24 AM EDT documented in this encounter Progress Notes * Franko Hartley PA - 10/05/2017 10:20 AM EDT Images from the original note were not included. Department of Orthopaedics Division of Adult Joint Reconstructive Surgery CHIEF COMPLAINT: Chief Complaint Patient presents with ??? Right Knee Pain ARTHROPLASTY HISTORY/PREVIOUS KNEE SURGERY: 1. None Cody Bolden was referred from Tal Eagle MD [facility] [place] [address] I.D.: Cody Bolden is a 67 y.o. year old male being seen today to discuss his right knee. His history and physical exam were reviewed in detail. He states the knee has been symptomatic for years. The pain is predominantly medial. There was not inciting trauma/injury. He does not describe hip pain. He feels that his knee pain is keeping him from walking with pain. Aggravating factors include activity, stair climbing, weight bearing. Alleviating factors include rest, heat, ice. The patient has pain at night.. He can weight bear on the right leg and does not useassistive devices. He has not tried physical therapy. He has injections into the joint.: Synvisc, did help for several months. He has not had brace treatment. Mr. Bolden denies fevers/chills/headache/chest pain/shortness of breath/abdominal pain/nausea or vomiting/weight changes He does not endorse a history of DVT/PE or clotting disorder. QUESTIONNAIRE RESPONSES: General Health, Prior Treatments, PreExisting Condition, Health Habits, About You 10/05/2017 PROMIS-10 General Health Very Good PROMIS-10 Quality of Life Good PROMIS-10 Physical Health Good PROMIS-10 Mental Health Good PROMIS-10 Social Activity Good PROMIS-10 Everyday Activities Completely PROMIS-10 Pain 3 PROMIS-10 Fatigue Mild PROMIS-10 Social Roles Good PROMIS-10 Anxious or Depressed Never PROMIS PHYSICAL SCORE (range 16-68) 50.8 PROMIS MENTAL SCORE (range 21-68) 48.3 Treatments Tried Brace, Physical therapy, Acetaminophen (e.g. Tylenol) KOOS JR Scores 57.14 TKA Grade 5 Alzheimers or dementia No Cirrohosis or liver disease No HIV/AIDS No Pain in more than one joint in legs Yes Back or neck pain No Heart attack No Heart failure No Unclog/bypass leg arteries No Stroke, blood clot, TIA Yes Difficulty moving arm/leg No Asthma No Emphysema, chronic bronchities, or COPD No Stomach ulcers/peptic ulcer disease No Diabetes Yes Diabetes caused problems with eyes No Poor kidney function Yes Dialysis Yes Kidney transplant Yes Rheumatic condtions No Cancer No Weight (lbs) 215 Height (feet) 5 feet Height (Inches) 10 BMI 30.84 (Obese) Ever used tobacco products Yes Tobacco frequency Never WHO - Tobacco Advice 0 (You are at low risk of health and other problems from your current pattern of use.) Ever used alcoholic beverages Yes Alcohol frequency Never WHO - Alcohol Advice 0 (You are at low risk of health and other problems from your current pattern of use.) Live Alone No Marital situation Schooling High school graduate or GED Combined Household Income Prefer not to answer # People Supported 2 Romansh, , No, not Romansh// Race White Health Literacy Extremely Currently working No Not working because: Retired [facility] Response 10/05/2017 KOOS JR Scores 57.14 Spine [facility] Response 10/05/2017 KOOS JR Scores 57.14 ALLERGIES No Known Allergies Allergies to metals: None. SOCIAL HISTORY: reports that he quit smoking about 2 years ago. His smoking use included Cigars. Hehas never used smokeless tobacco. He reports that he does not drink alcohol or use illicit drugs. SIGNIFICANT MEDICAL COMORBIDITIES: Patient Active Problem List Diagnosis Code ??? [...] hepatitis) K73.2 ??? Prophylactic immunotherapy Z29.8 ??? intermediate frame tender current use of 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 drug Z79.899 ??? Vitamin D deficiency E55.9 ??? Primary osteoarthritis of right knee M17.11 ??? Debility R53.81 ??? Pain of right lower extremity M79.604 VITALS: BP Readings from Last 1 Encounters: 10/05/17 136/71 Pulse Readings from Last 1 Encounters: 10/05/17 66 Height: 177.8 cm (5' 10) (verbal) Weight: 97.5 kg (215 lb) (verbal) Body mass index is 30.85 kg/(m^2). PHYSICAL EXAM: Constitution: Cody Bolden sits in the clinic today alert, appears stated age and cooperative.He is alert and oriented. I have made the following determinations: Knee Exam: Right Prior surgery on this joint: No Knee ROM: Extension:0 Flexion: 120 Alignment: 0-4 degrees Varus Stability: A/P Translation <5mm. Varus (lateral stability) <5mm Valgus (medial stability) <5mm Extension La degrees or less Radiographic evidence of joint damage: [0= normal; 1=minimal ; 2= some osteophytes , some narrowing ; 3= moderate osteophytes, significantnarrowing, mild deformity; 4= large osteophytes, marked narrowing, obvious deformity]: 3= moderate osteophytes, significant narrorwing, mild deformity and 4= large osteophytes, marked narrowing, obvious deformity Patella Tracking: Normal Skin Integrity: Normal Pulses Palpable: Right PT: Yes Right DP:Yes Motor/Sensory: Distal Motor: Normal Distal Sensory: Normal Quadriceps Strength: 5 Knee Effusion: 0-1+ Ecchymosis: none Patella: Patellar apprehension test: negative Patellar compression test: negative Tenderness: medial joint line IMAGING: X-rays of the right knee demonstrate subchondral sclerosis, chondrocalcinosis and shows DJD changes, likely chronic. Medial joint space narrowing, with osteophyte formation, and subchondral sclerosis. ASSESSMENT AND PLAN:Mr. Bolden is a 67 y.o. year old male with moderate to severe osteoarthritis of his right knee. We discussed the elective management of osteoarthritis treatment. We discussed the arthritis ladder, attempting conservative therapy first with the below, we also discussed attempting formal physicaltherapy, as that can help keep core and knee musculature strong, in conjunction with focusing on range of motion. We also discussed using walking aids, continue and regular exercise along with maintaining an appropriate weight. The patient is receptive to this. We also discussed corticosteroid injection. Risks and benefits explained including but not limited to steroid flare, increase in blood glucose, infection, continued pain, bleeding, damage to nerves and vessels and can safely be given every 3-4 months. We reviewed the indications of total knee arthroplasty and th elective management of this. We discussed the procedure, recovery, and expectations post- operatively. We reviewed risks andbenefits, which include but are not limited to infection, bleeding, damage to nerves and vessels, hardware failure, fracture, dislocation, blood clot, heart attack, stroke, adverse reaction to anesthesia, and continued pain. Patient demonstrates and understanding of the above. Reviewed for him, the concern is risk for infection, wound healing with his immunosuppression. Dr. Meliza price, and risk stratification. Reviewed NO NSAIDS or APAP for him. This patient was seen in conjuncture with Dr. Dale. Potential barriers to total joint arthroplasty: -BMI > 40: No -Active Tobacco use: No -Diabetes with hemoglobin A1C > 7.5: No, Last Hgb A1C 5.1 09/2017 Kidney transplant on Prograf Hepatitis C s/p Harvoni Treatment [facility] WRIGHT * Breezy Dale MD - 10/05/2017 10:20 AM EDT Images from the original note were not included. Department of Orthopaedics Division of Adult Joint Reconstructive Surgery October 05, 2017 I had the pleasure [...] with surgery. All questions were answered. Breezy Dale MD, MS Chief, Division of Adult Reconstructive Anesthesiology TeacherSales Force Administrator of Orthopaedics Department of Orthopaedics [facility] [phone] [email or web address] documented in this encounter Plan of Treatment Upcoming Encounters Date Type Department Care Team (Late st Contact Info) Description 04/15/2024 10:00 AM EDT Hospital Encounter Non[place] [address] Arrived documented as of this encounter Goals Goal Patient Goal Type Associated Problems Recent Progress Patient-Stated? Author [facility] Medication Compliance and Understanding Patient Facing Action Plan On track( 017 10:41 AM EDT) Selena Scott, [facility] Note: Patient Goal: Clear hepatitis C Timeframe to meet goal: within 12 weeks of therapy documented as of this encounter Procedures Procedure Name Priority Date/Time Associated Diagnosis Comments TOTAL KNEE ARTHROPLASTY Routine 10/06/19 18 11:04 AM EDT documented in this encounter Results * XR Knee Standing Alignment AP Lat Mershon Right (01/04/2018 12:15 PM EDT) Anatomical Region [...] complication. Breezy Dale MD IMG DX ORDERABLES * APTT (11/04/2017 12:53 PM EDT) Partial Thromboplastin Time 30 25 - 37 sec [facility] Comment: The PTT is NOT appropriate for heparin monitoring. Use the Anti-Xa level for heparin monitoring (HEP UFH) or LMWH monitoring (HEP LMW). A PTT less than 37 seconds generally indicates adequate hemostasis. Blood specimen (specimen) 11/04/2017 12:53 PM EDT 11/04/2017 12:56 PM EDT Narrative Resulting Agency Comment Spec In Lab Breezy Dale MD HEMATOLOGY ORDERABL ES [facility] [place] [address] * Prothrombin Time (11/04/2017 12:53 PM EDT) Prothrombin Time 11.9 9.4 - 12.5 sec [facility] International Normalization Ratio 1.1 [facility] Comment: An INR <2.0 [...] Lab Breezy Dale MD HEMATOLOGY ORDERABL ES [facility] [place] [address] * (ABNORMAL) Basic Metabolic Panel (non-fasting) (11/04/2017 12:53 PM EDT) Glucose 129 65 - 199 mg/dL [facility] Comment:Diabetes: >=200 mg/d L plus symptoms Blood Urea Nitrogen 21(H) 10 - 20 mg/dL [facility] Creatinine 1.39 0.80 - 1.50 mg/dL [facility] Sodium 137 135 - 145 mmol/L [facility] Potassium 3.8 3.5 - 5.0 mmol/L [facility] Comment: Please note: ??Patients with WBC >100,000 may have falsely elevated Potassium levels. ??For accurate Potassium quantification in these patients send serum separator tube (gold top) for subsequent determinations. ??Contact the Clinical Chemistry Laboratory if there are any questions. Chloride 99 98 - 107 mmol/L [facility] Carbon Dioxide 24 22 - 31 mmol/L [facility] Anion Gap 14 5 - 15 mmol/L [facility] Calcium 9.3 8.5 - 10.5 mg/dL [facility] Est Glomerular Filtration Rate 51(L) >=60 [facility] Comment: The reported eGFR should be multiplied by 1.2 for patients. The MDRD is not an appropriate measure of renal function for patients with body mass extremes or in patients with acute kidney failure. http://[employer]/DHnkdep http://[employer]/DHMCnkf Blood specimen (specimen) 11/04/2017 12:53 PM EDT 11/04/2017 12:56 PM EDT Narrative Resulting Agency Comment Spec In Lab Breezy Dale MD CHEMISTRY ORDERABLE S Performing Organization Address City/[facility] Co de Phone Number [facility] [place] [address] * EKG 12 Lead (11/04/2017 12:43 PM EDT) Ventricular rate 65 BPM MUSE SYSTEM Atrial Rate 65 BPM MUSE SYSTEM P-R Interval 178 ms MUSE SYSTEM QRS Duration 102 ms MUSE SYSTEM Q-T Interval 436 ms MUSE SYSTEM QTC Calculated (Bezet) 453 ms MUSE SYSTEM Calculated P Silver [place]ume 44 degrees MUSE SYSTEM Calculated R Silver [place]ume -59 degrees MUSE SYSTEM Calculated T Silver Plume 2 degrees MUSE SYSTEM INTERPRETATION Sinus rhythm with Premature atrial complexes with Aberrant conduction Left anterior fascicular block Abnormal ECG When compared with ECG of 22-JUN-2016 20:24, No significant change was found Confirmed by Damien Ellis MD ([id number]) on 11/04/2017 2:05:54 PM MUSE SYSTEM 11/04/2017 12:4 3 PM EDT 11/04/2017 2:05 PM EDT Breezy Dale MD ECG ORDERABLES Performing Organization Address City/[facility] Co de Phone Number MUSE SYSTEM documented in this encounter Visit Diagnoses Diagnosis Pain of right lower extremity Debility Debility, unspecified Primary osteoarthritis of right knee Primary localized osteoarthrosis, lower leg Pain of right lower extremity Debility Debility, unspecified Primary osteoarthritis of right knee Primary localized osteoarthrosis, lower leg documented in this encounter Care Teams Arborer Relationship Specialty Start Date End Date Urbano Denis DO [address] [place] [address] [address] [facility] [address] [place] [address] PCP - General 09/03/12 03/17/22 Ruchi Valles RN Nurse Clinic Transplant Surgery 07/30/15 documented as of this encounter
--- OUTSIDE RECORDS SUMMARY | 2024-02-14 11:25 | XMS_ITS | Encounter Summary ---
Author Organization [facility] Address [facility] [place] [address] Care Team Providers Care Hearing Aid Technician Name Role Phone AdeelUrbano Primary Care Provider + [phone] Reason for Visit * Reason Comments Follow Up Surgery right TKA Encounter Details Date Type Department Care Team (Late st Contact Info) Description 03/01/2018 2:10 PM EDT Office [place] [address] Breezy Dale MD [facility] [place] [address] S/P R TKA 11/25/17 Dr. Dale Social [...] Sign Reading Time Taken Comments Blood Pressure 154/69 03/01/2018 2:08 PM EDT Pulse 55 03/01/2018 2:08 PM EDT Temperature - - Respiratory Rate - - Oxygen Saturation - - Inhaled Oxygen Concentration - - Weight 97.5 kg (215 lb) 03/01/2018 2:08 PM EDT v erbal Height 177.8 cm (5' 10) 03/01/2018 2:08 PM EDT verbal Body Mass Index 30.85 03/01/2018 2:08 PM EDT documented in this encounter Progress Notes * Breezy Dale MD - 03/01/2018 2:10 PM EDT Images from the original note were not included. Department of Orthopaedics Division of Adult Joint Reconstructive Surgery March 01, 2018 I had the pleasure of evaluating Cody Bolden in clinic in conjunction with one of my associate providers. In brief Mr. Bolden is a 67 y.o. year old male seen in follow-up after right total knee replacement. He struggled with range of motion and this is a follow- up to make sure he is improving clinically. He still lacks about 5-10?? of full extension but can now flex to about 110??. He is actually happy with his motion. He did state that recovering from knee replacement was harder than recovering from his kidney transplant. I explained that this is a long-term investment and the full recovery can take a year to 18 months. At this point is not interested in any further intervention in the order of a manipulation or further surgery. I do think this is reasonable and I do not recommend any further intervention. I think he should continue with PT and continue to work on his range of motion. I like to see him back at the anniversary of his surgery for repeat exam with x- rays. All questions wereanswered Breezy Dale MD, MS Chief, Division of Adult Reconstructive Senior Engineering [employer] Planner of Orthopaedics Department of Orthopaedics [facility] [address] [email or web address] * Anatoly Richards PA - 03/01/2018 2:10 PM EDT Arthroplasty/Orthopaedic History: 1. Right TKA. Dr. Dale. 11/25/2017. HPI: Cody Bolden is a very pleasant 67 y.o. year-old male and is now 3 months post right total knee replacement The patient has been doing ok. Pain is controlled. No fevers, chills, nausea, vomiting, or symptoms of infection. Cody has been ambulating with a cane and working with PT. He is not taking narcotic pain medicine. ROS: Denies: fever, chills, night sweats, nausea, or vomiting BP 154/69 (BP Location (NBP): Right arm, Patient Position: Sitting, BP Cuff Sizes: Large Adult (32-43 cm)) Pulse 55 Ht 177.8 cm (5' 10) Comment: verbal Wt 97.5 kg (215 lb) Comment: verbal BMI 30.85 kg/m2 Physical Exam: Well-appearing male in no acute distress. Alert and Oriented x 3 and answers all questions appropriately. The incision is well healed, with no signs of infection. Post Op Right Knee Exam: Knee ROM: Extension:10 Flexion: 110 Alignment: 0-4 degrees Varus Stability: A/P Translation <5mm. Varus <5mm Valgus <5mm Extension La degrees or less Patella Tracking: Normal Pulses Palpable: Right PT: Yes Right DP:Yes Motor/Sensory: Distal Motor: Normal Distal Sensory: Normal Quadriceps Strength: 4 Questionnaire Responses: [facility] Surgical Postop Visit 03/01/2018 PROMIS-10 General Health Good PROMIS-10 Quality of Life Good PROMIS-10 Physical Health Good PROMIS-10 Mental Health Very Good PROMIS-10 Social Activity Very Good PROMIS-10 Everyday Activities Completely PROMIS-10 Pain 2 PROMIS-10 Fatigue Mild PROMIS-10 Social Roles Good PROMIS-10 Anxious or Depressed Rarely PROMIS PHYSICAL HEALTH SCORE 50.8 PROMIS MENTAL HEALTH SCORE 50.8 KOOS JR Scores 63.78 Problems with surgical incision/wound after surgery No Problems with incision - Prescribed antibiotics - Caregiver after your surgical incision problem - Gone to ER since knee surgery No Admitted to hospital since recent ortho surgery No Additional surgery on same body part No TKA Grade 5 Pain in other KNEE None Back pain at this moment None Satisfaction with Treatment Somewhat satisfied Choose Same Treatment Again Completely uncertain [facility] Response 03/01/2018 KOOS JR Scores 63.78 [facility] Response 03/01/2018 KOOS JR Scores 63.78 ASSESSMENT/PLAN: Mr. Bolden is a 67 y.o. year old male status post right total knee replacement. Postoperative course complicated by stiffness and lacking full extension however patient states thathis pain is minimal and that he can function well with the ROM he has. Continue weightbearing as tolerated and working on range of motion. We will see him back in 1 year for repeat examination. X-rays will be needed at that time. Patient may return to normal activities as his pain and function allow. Patient was seen and evaluated with Dr Dale All questions were answered. Signed: MCKINLEY LANDAVERDE 03/05/2018 documented in this encounter Plan of Treatment Upcoming Encounters Date Type Department Care Team (Late st Contact Info) Description 04/15/2024 10:00 AM EDT Hospital Encounter [place] [address] Arrived documented as of this encounter Goals Goal Patient Goal Type Associated Problems Recent Progress Patient-Stated? Author DH Home Medication Compliance and Understanding Patient Facing Action Plan On track( 017 10:41 AM EDT) eSlena Scott, [facility] Note: Patient Goal: Clear hepatitis C Timeframe to meet goal: within 12 weeks of therapy documented as of this encounter Visit Diagnoses Diagnosis S/P R TKA 11/25/17 Dr. Dale Knee joint replacement by other means documented in this encounter Care Teams Hearing Aid Technician Relationship Specialty Start Date End Date Urbano Denis DO [address] [place] [address] PCP - General 09/03/12 03/17/22 Ruchi Valles RN Nurse Clinic Transplant Surgery 07/30/15 documented as of this encounter
--- OUTSIDE RECORDS SUMMARY | 2024-02-14 11:25 | XMS_ITS | Encounter Summary ---
Author Organization [facility] Address [facility] [place] [address] Care Team Providers Care Delivery Room Clerk Name Role Phone AdeelUrbano Primary Care Provider [phone] Encounter Details Date Type Department Care Team (Latest Contact Info) Description 10/05/2017 9:46 AM EDT - 10/05/2017 11:59 PM EDT Hospital Encounter XRay at [address] [place] [address] Breezy Dale MD [facility] [place] [address] Right knee pain, unspecified chronicity Discharge Disposition: Home Social History Tobacco Use [...] Tablet Take 137 mcg by mouth daily. gabapentin (NEURONTIN) 300 mg Capsule Take 1 capsule by mouth nightly for 28 days. 28 capsule 11/26/2017 12/24/2017 tamsulosin (FLOMAX) 0.4 mg Capsule, Sust. Release 24 hr Take 1 capsule by mouth nightly. 90 tablet 3 11/26/2017 11/26/2017 polyethylene glycol (MIRALAX) 17 gram Powder in Packet Take 17 g by mouth 2 times daily. Take to maintain normal bowel pattern while taking narcotic pain medication. 11/26/2017 05/30/2019 oxyCODONE (ROXICODONE) 5 mg Tablet Take 1 tablet by mouth every 4 hours as needed for Pain. Take the smallest dose possible to control your pain. 70 tablet 11/26/2017 12/17/2017 Magnesium Gluconate 27 mg (500 mg) Tablet Take 2 tablets by mouth 2 times daily. 06/07/2018 potassium phosphate, monobasic, (K-PHOS) 500 mg Tablet, Soluble Take 3 tabs at lunch time and 3 tabs at bedtime 540 tablet 3 08/19/2017 11/15/2018 tamsulosin (FLOMAX) 0.4 mg Capsule, Sust. Release 24 hr Take 1 capsule by mouth nightly for 364 days. 30 capsule 11 07/30/2017 07/29/2018 sulfamethoxazole-trim ethoprim (BACTRIM;SEPTRA) 400-80 mg Tablet Take 1 tablet by mouth daily. 90 tablet 3 03/26/2017 11/04/2017 mycophenolate (CELLCEPT) 250 mg Capsule Take 250 mg twice daily. Kidney transplant 09/16/15. ICD code Z94.0 60 capsule 11 12/12/2016 12/21/2017 calciTRIol (ROCALTROL) 0.5 mcg Capsule Take 1 capsule by mouth daily. 90 capsule 3 12/11/2016 12/11/2017 PROGRAF 1 mg Capsule Take 2 capsules in the morning and 1 capsule at night. Kidney transplant 09/16/2015. ICD code Z94.0 270 capsule 3 12/03/2016 12/11/2017 ascorbic acid, vitamin C, (VITAMIN C) 500 mg Tablet Take 1 tablet by mouth 3 times daily. 30 tablet 3 06/25/2016 12/27/2020 clopidogrel (PLAVIX) 75 mg Tablet Take 75 mg by mouth daily. 02/17/2020 acetaminophen (TYLENOL) 500 mg Tablet Take 1,000 mg by mouth every 6 hours as needed for Pain. Reported on 09/15/2016 11/26/2017 documented as of this encounter Plan of Treatment Upcoming Encounters Date Type Department Care Team (Late st Contact Info) Description 04/15/2024 10:00 AM EDT Hospital Encounter Non-Invasive [place] [phone] Arrived documented as of this encounter Goals [...] Associated Diagnosis Comments XR KNEE STANDING ALIGNMENT AND 1-2 VIEWS RIGHT Routine 10/05/2017 10:05 AM EDT Right knee pain, unspecified chronicity documented in this encounter Results * XR Knee Standing Alignment & 1-2 views Right (10/05/2017 10:05 AM EDT) Anatomical Region Laterality Modality Knee Right Digital Radiogra phy Impressions 10/05/2017 1:00 PM EDT The appearance is consistent with osteoarthritis though the joint space narrowing is asymmetric and involves the medial compartment on the right and lateral compartment on the left. Narrative 10/05/2017 1:00 PM EDT EXAMINATION: XR KNEE STANDING ALIGNMENT AND 1-2 VIEWS RIGHT CLINICAL HISTORY: right knee pain TECHNIQUE: Separate images of the pelvis, knees and feet were acquired in the AP projection with the patient standing. These images were stitched together to form a composite image of the pelvis and legs allowing for evaluation of lower extremity alignment in the weight bearing position. In addition, PA Barnard and skyline views were acquired COMPARISON: X-rays 06/04/2017 FINDINGS: The standing alignment study documents medial compartment narrowing at the right knee. The mechanical axis remains relatively well centered and only slightly medial of midline. On the left there is a mild lateral displacement of the mechanical axis. Patellofemoral alignment is normal bilaterally though there are marginal osteophytes The Barnard view documents medial compartment narrowing at the right knee and lateral compartment narrowing at the left knee both associated with subchondral sclerosis and osteophyte formation. Procedure Note Ozzy Krishnamurthy MD - 10/05/2017 EXAMINATION: XR KNEE STANDING ALIGNMENT AND 1-2 VIEWS RIGHT CLINICAL HISTORY: right knee pain TECHNIQUE: Separate images of the pelvis, knees and feet were acquired inthe AP projection with the patient standing. These images were stitched togetherto form a composite image of the pelvis and legs allowing for evaluation oflower extremity alignment in the weight bearing position. In addition, PARosenberg and skyline views were acquired COMPARISON: X-rays 06/04/2017 FINDINGS: The standing alignment study documents medial compartment narrowing at theright knee. The mechanical axis remains relatively well centered and onlyslightly medial of midline. On the left there is a mild lateral displacement ofthe mechanical axis. Patellofemoral alignment is normal bilaterally though there are marginal osteophytes The Barnard view documents medial compartment narrowing at the rightknee and lateral compartment narrowing at the left knee both associated withsubchondral sclerosis and osteophyte formation. IMPRESSION The appearance is consistent with osteoarthritis though the joint space narrowing is asymmetric and involves the medial compartment on the rightand lateral compartment on the left. Breezy Dale MD IMG DX ORDERABLES documented in this encounter Visit Diagnoses Diagnosis Right knee pain, unspecified chronicity documented in this encounter Care Teams Delivery Room Clerk Relationship Specialty Start Date End Date Urbano Denis DO [address] [place] [address] PCP - General 09/03/12 03/17/22 Ruchi Valles RN Nurse Clinic Transplant Surgery 07/30/15 documented as of this encounter
--- OUTSIDE RECORDS SUMMARY | 2024-02-14 11:25 | XMS_ITS | Encounter Summary ---
Author Organization [facility] [place] [address] Care Team Providers Care Flat Sorter Processor Name Role Phone Adeel Urbano KIRBY Primary Care Provider [phone] Reason for Visit * Auth/Cert Specialty Diagnoses / Procedures Referred By Humberto t Referred To Contact Diagnoses Presence of right artificial knee joint Osteoarthritis of the knee Procedures PRO TOTAL KNEE ARTHROPLASTY TOTAL KNEE ARTHROPLASTY (WRVU 20.72) MODIFIER, ATTUNE CURVED FIXED PLATFORM, DEPUY Referral ID Status Reason Start Date Expiration Date Visits Re quested Visits Authorized [id number] 1 1 Encounter Details Date Type Department Care Team (Late st Contact Info) Description 11/25/2017 11:16 AM EDT - 11/25/2017 1:39 PM EDT Surgery [place] [address] Breezy Dale MD [facility] [address] ORTHOPAED[facility] [place] [address] TOTAL KNEE ARTHROPLASTY (WRVU 19.6) Social History Tobacco Use Types Packs/Day Years [...] Sign Reading Time Taken Comments Blood Pressure 177/81 11/25/2017 1:30 PM EDT Spoke with Sites; no orders given. Pulse 57 11/25/2017 1:30 PM EDT Temperature 36.4 ??C (97.5 ??F) 11/25/2017 1 2:40 PM EDT Respiratory Rate 22 11/25/2017 1:15 PM EDT Oxygen Saturation 94% 11/25/2017 1:3 0 PM EDT Inhaled Oxygen Concentration - - Weight 104.3 kg (230 lb) 11/25/2017 9:3 3 AM EDT Height 177.8 cm (5' 10) 11/25/2017 9:3 3 AM EDT Body Mass Index 33 11/25/2017 9:33 AM EDT documented in this encounter Discharge Summaries * Guy Giraldo MD - 11/26/2017 12:41 PM EDT Discharge Summary Patient Name: Cody Bolden Patient Age: 67 y.o. Language: Iranian Race: White Ethnicity: Not nor Admit date: 11/25/2017 Discharge date and time: 11/26/2017 Attending Physician: Breezy Dale MD Discharge Physician: Breezy Dale MD Follow-up Recommendations for Providers: See discharge instructions for additional details. Future Appointments Date Time Provider Department Center 01/04/2018 12:30 PM [facility] 6 [facility] 01/04/2018 1:30 PM Franko aHrtley PA [facility] Inpatient Provider Contact Information: Breezy Dale MD Orthopedics: [phone] After hours and weekends, call [facility] Front Desk Person, , and have the Orthopedic resident paged. Discharge Diagnoses (Hospital Problems) and Secondary Diagnoses (Chronic Problems): Active Hospital Problems Diagnosis ??? S/P R TKA 11/25/17 Dr. Dale Resolved Hospital Problems Diagnosis Date Resolved No resolved problems to display. Active Non-Hospital Problems Diagnosis ??? Obesity (BMI 30.0-34.9) ??? Primary [...] (degenerative joint disease) ??? Hematuria Operations/Major Procedures: 11/25/2017 Surgeon(s) and Role: * Breezy Dale MD - Primary * Anmol De Leon MD - Resident-Public Health Doctor Procedure(s): RIGHT TOTAL KNEE ARTHROPLASTY MODIFIER, ATTUNE CURVED FIXED PLATFORM, [employer] Intraoperative Findings: Arthritic changes in all three compartments worse in the medial compartment of the knee as evidenced by loss of cartilage, exposed eburnated bone and osteophyte formation. ACL intact. History of Presentation: Cody Bolden is a 67 y.o. male who has been followed in the out-patient clinic with a history of progressively worsening right knee pain secondary to degenerative arthritis. After having failed conservative, non-surgical attempts at managing the pain and limitations of functional capabilities,it was felt that the only remaining option was surgical. A detailed conversation regarding the risks and benefits of knee arthroplasty was had with the patient. The risks discussed included but were not limited to: bleeding (which may or may not require transfusion), infection, damage to nerves or blood vessels, deep venous thrombosis, pulmonary embolus, prosthetic failure, loosening, prosthetic f racture, femur patella or tibia fracture, persistent pain, need for future surgery, medical complications (including cardiac, respiratory and neurologic complications), anesthetic complications, and . Subsequent to this conversation, all of the patient???s questions were answered in great detail and informed consent was obtained for a right total knee arthroplasty. He received preoperative medical clearance and was felt optimized for surgery. Hospital Course: The patient was admitted via Same Day Surgery for the above operation. DVT prophylaxis: will resumePlavix. Patient began rehab on POD#1 w/ weight bearing as tolerated of right leg remembering to useprotection at all times for balance and protection. The patient was voiding spontaneously. The right knee silver Mepilex dressing to remain in place 7 days, was inspected on POD#1 and was dry and intact. Patient did not have a bowel movement prior to discharge but was passing flatus .Pain was well controlled with oral pain medications. By POD#1 the patient was medically stable and was cleared forsafe discharge to home. Vital Signs at Discharge: Weight: Wt Readings from Last 1 Encounters: 11/25/ 104.3 kg (230 lb) Height: Ht Readings from Last 1 Encounters: 18 177.8 cm (5' 10) HC: HC Readings from Last 1 Encounters: No data found for HC BMI: Body mass index is 33 kg/(m^2). Last value Range last 24 hrs Temperature Temp: 36.6 ??C (97.9 ??F) Temp: [36.6 ??C (97.9 ??F)-36.7 ??C (98.1 ??F)] Heart Rate Heart Rate: 66 Heart Rate: [55-69] Blood Pressure BP: 151/58 (recheck) BP: (138-184)/(58-82) Respiratory Rate Resp: 16 Resp: [13-24] SpO2 SpO2: 95 % SpO2: [88 %-100 %] Art BP BP (Arterial Line): -- Functional and Cognitive Status: Patient mobilizing with a walker, cognitively intact at baseline mental status at time of discharge. Important Lab Data: Last 3 wbc, hgb, hct plt Recent Labs 11/26/17 0133 11/04/17 1253 09/09/17 1003 WBC 12.6* 9.8* 7.9 HGB 15.1 15.7 15.8 HCT 42.8 45.1 45.2 PLATELET 249 272 304 Last 3 Lytes Recent Labs 11/26/17 0133 11/04/17 1253 09/09/17 1003 NA 139 137 139 K 3.9 3.8 3.6 CL 100 99 99 CO2 24 BUN 15 21* 14 CREATININE 1.17 1.39 1.20 Last Ca, Mg, Phos Recent Labs 11/26/17 0133 CALCIUM 8.8 Last 3 HgbA1C Recent Labs 09/09/17 1003 HA1C 5.1 Studies: no new studies Pending Studies and Lab Data at Discharge: None Transfusions: No Discharge Conditions/Prognosis: Stable, awake, and alert. Mobilizing as noted above, pain controlled on oral medications. Discharge to: Home Updated Allergies/ADRs: No Known Allergies Immunizations Given [...] Medications: Your Medications New Medications Dose Details gabapentin 300 mg Cap Commonly known as: NEURONTIN Take 1 capsule by mouth nightly for 28 days. 300 mg Quantity: 28 capsule Refills: 0 oxyCODONE 5 mg Tab Commonly known as: ROXICODONE Take 1 tablet by mouth every 4 hours as needed for Pain. Take the smallest dose possible to controlyour pain. 5 mg Quantity: 70 tablet Refills: 0 polyethylene glycol 17 gram Pwpk Commonly known as: MIRALAX Take 17 g by mouth 2 times daily. Take to maintain normal bowel pattern while taking narcotic pain medication. 17 g Refills: 0 senna-docusate 8.6-50 mg Tab Commonly known as: PERICOLACE Take 2 tablets by mouth 2 times daily. Take to maintain normal bowel pattern while taking narcotic pain medication. 2 tablet Refills: 0 Continued medications with new dosing Dose Details acetaminophen 500 mg Tab Commonly known as: TYLENOL Take 2 tablets by mouth every 8 hours. Take as directed around the clock for ten days after your surgery. After that you can take Tylenol as needed per package insert. What changed: - when to take this - reasons to take this - additional instructions 1000 mg Refills: 0 potassium phosphate (monobasic) 500 mg Tbso Commonly known as: K-PHOS Take 3 tabs at lunch time and 3 tabs at bedtime What changed: additional instructions Quantity: 540 tablet Refills: 3 * tamsulosin 0.4 mg Cp24 Commonly known as: FLOMAX Take 1 capsule by mouth nightly for 364 days. What changed: Another medication with the same name was added. Make sure you understand how and when to take each. 0.4 mg Quantity: 30 capsule Refills: 11 * tamsulosin 0.4 mg Cp24 Commonly known as: FLOMAX Take 1 capsule by mouth nightly. What changed: You were already taking a medication with the same name, and this prescription was added. Make sure you understand how and when to take each. 0.4 mg Quantity: 90 tablet Refills: 3 * Notice: This list has 2 medication(s) that are the same as other medications prescribed for you. Read the directions carefully, and ask your doctor or other care provider to review them with you. Continued medications, unchanged Dose Details ascorbic acid (vitamin C) 500 mg Tab Commonly known as: VITAMIN C Take 1 tablet by mouth 3 times daily. 500 mg Quantity: 30 tablet Refills: 3 calciTRIol 0.5 mcg Cap Commonly known as: ROCALTROL Take 1 capsule by mouth daily. 0.5 mcg Quantity: 90 capsule Refills: 3 clopidogrel 75 [...] mcg Refills: 0 Magnesium Gluconate 27 mg (500 mg) Tab Take 2 tablets by mouth 2 times daily. 2 tablet Refills: 0 mycophenolate 250 mg Cap Commonly known as: CELLCEPT Take 250 mg twice daily. Kidney transplant 09/16/15. ICD code Z94.0 Quantity: 60 capsule Refills: 11 PROGRAF 1 mg Cap Take 2 capsules in the morning and 1 capsule at night. Kidney transplant 09/16/2015. ICD code Z94.0 Generic drug: tacrolimus Quantity: 270 capsule Refills: 3 Smoking Status at Discharge: History Smoking Status ??? Former Smoker ??? Types: Cigars ??? Quit date: 01/02/2015 Smokeless Tobacco ??? Never Used Comment: cigars, one weekly Instructions for Rehab Providers or PCP: Please see below patient instructions. Instructions Given to Patient at Discharge: Patient Instructions Activity: 1. Your weight-bearing status is - weight bearing as tolerated of right leg. 2. Remember to use a walker or crutches at all times for balance and protection. Your physical therapist may progress you to using a cane when appropriate. 3. Flexion AND extension are important to work on at home. You should NOT place a pillow under youroperative knee. To help with extension you can place a pillow under your heel or lower leg or placed lengthwise along the operative leg. Again DO NOT place a pillow under the operated knee for comfort. Anticoagulation: Resume your usual Plavix 75 mg daily indefinitely as before surgery. Diet: Resume your usual diet but increase your intake of fluids and fiber while you are on narcoticpain meds to prevent constipation. Driving: None until you are cleared to do so by your Orthopedic surgeon. You should not drive whileyou are on narcotic pain meds as they can affect your judgment and reaction time. Call your surgeonwith any questions/concerns. Medications: 1. The pain medication you are on can cause constipation so increase your intake of fluids and fiber while you are on them. The stool softener, Pericolace, that has been prescribed can also be taken to facilitate a bowel movement. You can also take an fjsr-wsb-kpgojlg medication, Miralax if needed to combat constipation. 2. If you need a renewal on your narcotic pain medication, you need to give the Orthopedic clinic enough time to process your request. This can take up to three days, so plan accordingly. 3. Continue acetaminophen (Tylenol) 1,000mg every 8 hours around the clock until 12/05/2017 (for ten days after your surgery). This can be effective in controlling pain along with your other medications. After that you can take Tylenol as needed per package insert. Do not take more than 3,000mg of acetaminophen in a 24 hour period. 4. You have been discharged on a short acting narcotic, oxycodone. You will be on this medication for a limited period of time only. Take only enough pain medication to control your pain. As your pain lessens, taper down and off this medication as tolerated. 5. You are being discharged on gabapentin (Neurontin), a non-narcotic medication that will help with your pain at night and allow you to sleep better. Take this at night for the next 4 weeks. Shower (internal sutures): 1. You can shower but remember your activity limitations and always have a chair available for balance and protection. DO NOT submerge the dressing/incision. 2. (Mepilex) Do not let water run over the operative dressing. If it becomes wet lightly pat the dressing dry. DO NOT submerge the incision. When this operative dressing is removed you can let water gently run over the incision. Wound (Mepilex): 1. You do NOT have any external alessandro or sutures in place. Your sutures are internal and will be absorbed over time. 2. You have a Mepilex dressing in place. Do not lift the edge of the Mepilex dressing to inspect the incision, it will not re-adhere. Remove your operative dressing 7 days after your surgery (12/02/2017). When it is removed you can leave the incision open to air or cover it with a light dressing. 3. If you have lots of drainage when you get home (and it is before 12/02/2017), remove the operative dressing and replace it with dry sterile gauze. Continue with daily dressing changes (and as needed) until the drainage stops, then remove the dressing and leave the incision open to air or lightly covered. Misc: Remember that ICE and elevation are very important after surgery to help decrease swelling and control pain. Use ICE for 20-30 minutes at a time and keep your leg elevated as much as possible. Call your doctor ([phone]) if you develop: 1. Fever greater than 100.5 2. Severe nausea or vomiting 3. Increasing pain that is not controlled by pain medications 4. Increasing redness, swelling, or drainage from incisions 5. Change in sensation FOLLOW-UP APPOINTMENTS: 1. You will have follow-up appointments at [facility] as indicated below in Future Appointment and Orders. 2. You will need to have x-rays prior to your follow-up appointment on 01/04/2018. Please come to Radiology, desk 3T, 1 hour BEFORE that appointment for those x-rays. Future Appointments Date Time Provider Department Center 01/04/2018 12:30 PM [facility] ROOM 6 [facility]ray [facility] 01/04/2018 1:30 PM Franko Hartley PA [facility] [address] [place] [address] If you have questions or concerns: Thursday through Thursday, 8 AM - 5 PM, please call Breezy Yang MD's office at . If it is after 5 PM, the weekend, or holidays, please call and ask to speak with theOrthopedic resident on-call. General Instructions None Future Appointments and Orders Future Appointments Provider Department Dept Phone 01/04/2018 1:30 PM Franko Hartley PA [facility] at [place] [phone] Future Orders Complete By Expires Walker standard [EQ135 Custom] As directed Process Instructions: Scheduling Instructions: Comments: Cody Bolden [address] [facility] [id number] (home) [phone] (work) Telephone Information: Diagnosis:right total knee arthroplasty with Unsteady gait Patient's: Hgt: 5'10 Wgt: 230 VENDOR: [facility] Ordering: Front wheel walker Deliver to pt's hospital room #: Short Stay 17 Questions: Vendor Name/Contact information: [facility] Primary Care Provider: Urbnao Denis DO [phone] Discharge References/Attachments None documented in this encounter Discharge Instructions * Patient Instructions* Guy Giraldo MD - 11/25/2017 3:04 PM EDT Activity: 1. Your weight-bearing status is - weight bearing as tolerated of right leg. 2. Remember to use a walker or crutches at all times for balance and protection. Your physical therapist may progress you to using a cane when appropriate. 3. Flexion AND extension are important to work on at home. You should NOT place a pillow under youroperative knee. To help with extension you can place a pillow under your heel or lower leg or placed lengthwise along the operative leg. Again DO NOT place a pillow under the operated knee for comfort. Anticoagulation: Resume your usual Plavix 75 mg daily indefinitely as before surgery. Diet: Resume your usual diet but increase your intake of fluids and fiber while you are on narcoticpain meds to prevent constipation. Driving: None until you are cleared to do so by your Orthopedic surgeon. You should not drive whileyou are on narcotic pain meds as they can affect your judgment and reaction time. Call your surgeonwith any questions/concerns. Medications: 1. The pain medication you are on can cause constipation so increase your intake of fluids and fiber while you are on them. The stool softener, Pericolace, that has been prescribed can also be taken to facilitate a bowel movement. You can also take an zdol-izx-hnubnyt medication, Miralax if needed to combat constipation. 2. If you need a renewal on your narcotic pain medication, you need to give the Orthopedic clinic enough time to process your request. This can take up to three days, so plan accordingly. 3. Continue acetaminophen (Tylenol) 1,000mg every 8 hours around the clock until 12/05/2017 (for ten days after your surgery). This can be effective in controlling pain along with your other medications. After that you can take Tylenol as needed per package insert. Do not take more than 3,000mg of acetaminophen in a 24 hour period. 4. You have been discharged on a short acting narcotic, oxycodone. You will be on this medication for a limited period of time only. Take only enough pain medication to control your pain. As your pain lessens, taper down and off this medication as tolerated. 5. You are being discharged on gabapentin (Neurontin), a non-narcotic medication that will help with your pain at night and allow you to sleep better. Take this at night for the next 4 weeks. Shower (internal sutures): 1. You can shower but remember your activity limitations and always have a chair available for balance and protection. DO NOT submerge the dressing/incision. 2. (Mepilex) Do not let water run over the operative dressing. If it becomes wet lightly pat the dressing dry. DO NOT submerge the incision. When this operative dressing is removed you can let water gently run over the incision. Wound (Mepilex): 1. You do NOT have any external alessandro or sutures in place. Your sutures are internal and will be absorbed over time. 2. You have a Mepilex dressing in place. Do not lift the edge of the Mepilex dressing to inspect the incision, it will not re-adhere. Remove your operative dressing 7 days after your surgery (12/02/2017). When it is removed you can leave the incision open to air or cover it with a light dressing. 3. If you have lots of drainage when you get home (and it is before 12/02/2017), remove the operative dressing and replace it with dry sterile gauze. Continue with daily dressing changes (and as needed) until the drainage stops, then remove the dressing and leave the incision open to air or lightly covered. Misc: Remember that ICE and elevation are very important after surgery to help decrease swelling and control pain. Use ICE for 20-30 minutes at a time and keep your leg elevated as much as possible. Call your doctor ([phone]) if you develop: 1. Fever greater than 100.5 2. Severe nausea or vomiting 3. Increasing pain that is not controlled by pain medications 4. Increasing redness, swelling, or drainage from incisions 5. Change in sensation FOLLOW-UP APPOINTMENTS: 1. You will have follow-up appointments at [facility] as indicated below in Future Appointment and Orders. 2. You will need to have x-rays prior to your follow-up appointment on 01/04/2018. Please come to Radiology, desk 3T, 1 hour BEFORE that appointment for those x-rays. Future Appointments Date Time Provider Department Center 01/04/2018 12:30 PM [facility] RO[facility] 6 [facility] 01/04/2018 1:30 PM Franko Hartley PA [facility] [address] [place] [address] CLIN If you have questions or concerns: Thursday through Thursday, 8 AM - 5 PM, please call Breezy Yang MD's office at . If it is after 5 PM, the weekend, or holidays, please call and ask to speak with theOrthopedic resident on-call. documented in this encounter Medications at [...] of this encounter Progress Notes * Daksha Peralta RN - 11/26/2017 1:47 PM EDT The patient has met discharge criteria per policy. Discharge instruction reviewed and patient discharged to responsible adult. Patient???s pain level has been assessed and patient states that his/her level is tolerable at thistime. The After Visit Summary (AVS) and accompanying hand-outs have been reviewed with the patient; the patient verbalizes understanding at this time. Opportunity for clarification provided. All new medications have been reviewed with the patient and the appropriate hand-outs have been given to the patient. Reportable sign and symptoms have been reviewed with patient. * Aarti Appiah RN - 11/26/2017 11:19 AM EDT Office of Care Management (OCM) / National Facilities Manager(CM) Providers have indicated that patient would benefit from use of walker. CM will have resource engineer send referral to [facility] Care Located @ [place], [place] For discharge home today from Short Stay unit. Aarti Appiah RN Case Manager Pager [phone] * Anmol De Leon - 11/26/2017 6:17 AM EDT Orthopaedic Surgery Progress Note Surgery/Issue: Right TKA Attending: Chito Date of surgery: 11/25/2017 Subjective/Events: Mr. Bolden is doing well. He has been walking around all night. He is voiding well, he is tolerating PO. He denies any pain or numbness. He is eager to work with PT and go home today. Objective: Temp: [36.4 ??C (97.5 ??F)-36.7 ??C (98.1 ??F)] Heart Rate: [55-67] Resp: [13-25] BP: (138-177)/(64-105) Intake/Output Summary (Last 24 hours) at 11/26/17 0617 Last data filed at 11/26/17 0500 Gross per 24 hour Intake 1510 ml Output 2450 ml Net -940 ml Lab Results Component Value Date NA 139 11/26/2017 K 3.9 11/26/2017 CL 100 11/26/2017 CO2 24 11/26/2017 BUN 15 11/26/2017 CREATININE 1.17 11/26/2017 GLUCOSE 192 11/26/2017 GLUCFASTING 122 (H) 09/09/2017 CALCIUM 8.8 11/26/2017 Lab Results Component Value Date WBC 12.6 (H) 11/26/2017 HGB 15.1 11/26/2017 HCT 42.8 11/26/2017 MCV 87.3 11/26/2017 PLATELET 249 11/26/2017 Lab Results Component Value Date INR 1.1 11/04/2017 Exam: General: NAD, awake/alert CV: RRR felt peripherally Resp: Breathing comfortably on RA RLE: Dressing c/d/i. In cryocuff. Motor intact to EHL, FHL, TA. SILT in foot/calf. Brisk capillary refill distally. WWP A/P: 67 y.o. male POD#1 s/p right TKA, progressing well with stable vitals. Will plan to restart home DMmedications, glipizide this morning. Plan to work with PT/OT, likely dc home today. Activity: WBAT RLE Closure: Resorbable sutures Dressing: mepilex 7 days Anticoagulation: Plavix Antibiotics: ancef Dispo:PT/OT Follow-up: 01/04 with Odilia and JAYA De Leon MD Orthopaedic Surgery * Guy Giraldo MD - 11/25/2017 4:47 PM EDT Orthopaedic Surgery Post-Op Check Note Surgery/Issue: Right TKA Attending: Chito Date of surgery: 11/25/2017 Subjective/Events: Seen in PACU. Asking when his room will be cleaned. He has some numbness in his feet, but motor function has returned. Denies CP, SOB, nausea, vomiting. Pain well controlled. Objective: Temp: [36.4 ??C (97.5 ??F)-36.7 ??C (98.1 ??F)] Heart Rate: [55-67] Resp: [13-25] BP: (138-177)/(70-105) Intake/Output Summary (Last 24 hours) at 11/25/17 1649 Last data filed at 11/25/17 1213 Gross per 24 hour Intake 500 ml Output 350 ml Net 150 ml Lab Results Component Value Date NA 137 11/04/2017 K 3.8 11/04/2017 CL 99 11/04/2017 CO2 24 11/04/2017 BUN 21 (H) 11/04/2017 CREATININE 1.39 11/04/2017 GLUCOSE 129 11/04/2017 GLUCFASTING 122 (H) 09/09/2017 CALCIUM 9.3 11/04/2017 Lab Results Component Value Date WBC 9.8 (H) 11/04/2017 HGB 15.7 11/04/2017 HCT 45.1 11/04/2017 MCV 87.4 11/04/2017 PLATELET 272 11/04/2017 Lab Results Component Value Date INR 1.1 11/04/2017 Exam: General: NAD, awake/alert CV: RRR felt peripherally Resp: Breathing comfortably on RA RLE: Dressing c/d/i. In cryocuff. Motor intact to EHL, FHL, TA. Sensation diminished in foot/calf. Brisk capillary refill distally. Palpable DP/PT A/P: 67 y.o. male POD#0 s/p right TKA, progressing well with stable vitals. Will plan to restart home DMmedications when adequate PO intake. Activity: WBAT RLE Closure: Resorbable sutures Dressing: mepilex 7 days Anticoagulation: Plavix Antibiotics: ancef Dispo:PT/OT Follow-up: 01/04 with Odilia and XR Guy Giraldo MD Orthopaedic Surgery Pager [phone] documented in this encounter H&P Notes * Anmol De Leon W - 11/25/2017 10:12 AM EDT The patient's history and physical exam have been reviewed and completed. There has been no interval change from that of the pre-operative history and physical exam done within the last 30 days. documented in this encounter Miscellaneous Notes * Plan of Care - Alize Hardwick, PT - 11/26/2017 2:30 PM EDT Physical Therapy Evaluation Pertinent History of Current Problem: 67 y/o male s/p R TKA on 11/25/17 Precautions/Restrictions: fall, weight bearing Precautions Comments: R LE WBAT Weight-Bearing Status Extremity Weight Bearing Status: right lower extremity Right Lower Extremity (Weight Bearing Status): weight-bearing as tolerated Assessment: Pt seen today for physical therapy initial evaluation. Pt presents with R knee pain, decreased R knee A/PROM, and decreased strength Despite these impairments pt performed functional mobility tasks safely and independently, including bed mobility, transfers, ambulation and stair negotiation. Pt also demonstrated good understanding of post-op HEP. Anticipate d/c home with family assistand follow up outpatient PT services; pt will benefit from ongoing physical therapy to address the above impairments and facilitate return to PLOF. Please see associated flow sheet data below for objective information regarding today's session Anticipated Discharge Disposition: (S) home with assist, home with outpatient services Alize Hardwick, PT Pager: [phone] Inpatient Physical Therapy [facility] AM-PAC 6 Clicks/stairs Basic Mobility Inpatient Short Form How much difficulty does the patient currently have... Unable (1) A Lot (2) A Little (3) None (4) 1. Turning over in bed (including adjusting bedclothes, sheets and blankets)? X 2. Sitting down on and standing up from a chair with arms (e.g., wheelchair, bedside commode, etc.)? X 3. Moving from lying on back to sitting on the side of the bed? X How much help from another person does the patient currently need... Total (1) A Lot (2) A Little (3) None (4) 4. Moving to and from a bed to a chair (including a wheelchair)? X 5. Need to walk in hospital room? X 6. Climbing 3-5 steps with a railing? X Raw Score: 24 Standardized Score: 61.14 CMS 0-100% Score: 0% CMS Modifier: CH G-Code: Mobility Status Modifier CURRENT CH - 0 percent impaired, limited or restricted PROJECTED CH - 0 percent impaired, limited or restricted DISCHARGE CH - 0 percent impaired, limited or restricted G Code Rationale: This G-Code and these disability modifiers were selected as the primary therapy goal based upon the patient's evaluation including functional mobility assessment. Co-morbidities andclinical judgement were also used to select the disability modifier. Mr. Bolden's current G-Code functional level is 0% impaired based upon the AM-PAC 6 clicks assessment. 2017 PT Evaluation Code Rationale: ?? Diagnosis & Pertinent Co-Morbidities, personal factors, and present illness affecting Plan of Care: Patient Active Problem List Diagnosis Code ??? [...] hepatitis) K73.2 ??? Prophylactic immunotherapy Z29.8 ??? 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 Vitamin D deficiency E55.9 ??? Primary osteoarthritis of right knee M17.11 ??? Debility R53.81 ??? Pain of right lower extremity M79.604 ??? Obesity (BMI 30.0-34.9) E66.9 ??? S/P R TKA 11/25/17 Dr. Dale Z96.651 Additional personal factors or co-morbidities that impact plan: ?? Total # of Factors: 0 1-2 3+ X ?? Examination of body system impairments, functional limitations and behaviors, and/or participation restrictions. Addressing 1-2 elements Addressing 3 + elements X Addressing 4 + elements ?? Clinical presentation: See assessment above. Stable/Uncomplicated Evolving/Fluctuating Symptoms Unstable/Unpredictable X ?? Clinical decision making of low complexity based on pt's functional performance as outlined in this evaluation. 11/26/17 0923 Rehab Evaluation Document Type evaluation Total Evaluation Minutes, Physical Therapy 42 (eval + TESx1) Patient Effort good Symptoms Noted During/After Treatment none General Information Patient Profile Review yes Patient/Family/Caregiver Comments/Observations I'm ready to get out of here Pertinent History of Current Problem 67 y/o male s/p R TKA on 11/25/17 Precautions/Restrictions fall;weight bearing Precautions Comments R LE WBAT Treatment Number PT 1 Right Lower Extremity (Weight Bearing Status) weight-bearing as tolerated Living Environment Patient population Adult Living Environment Living Environment Comment Pt lives with his in a two level home with 4 ROCAEL (with railing) tawanda first floor setup available. The bathroom has a walk in shower with grab bar and seat Functional Level Prior Prior Functional Level Comment Prior to admission pt ambulated independently (occasionally using a cane) and was independent for ADLs/IADLs Pain Scale/Rating Pain Assessment Scale Numbers (Numeric Rating Pain Scale) Pain Level 2 Pain Assessment Numbers/Faces/Word Pain Body Location - Side Right Pain Body Location - Orientation generalized Pain Body Location knee ROM (Range of Motion) Additional Documentation (R knee AROM: lack 3 - 93 degrees) MMT (Manual Muscle Testing) Additional Documentation (B LEs WFL) Mobility Assessment/Training Additional Documentation Bed Mobility Assessment/Treatment (Group);Gait Assessment/Treatment (Group);Stairs Assessment/Treatment (Group);Transfer Assessment/Treatment (Group);Weight-Bearing Status (Group) Weight-Bearing Status Extremity Weight Bearing Status right lower extremity Bed Mobility Assessment/Treatment Jqhuzm-nj-Lea Shannon (Bed Mobility) independent Zya-ka-Qpupjb Shannon (Bed Mobility) independent Transfer Assessment/Treatment Shannon (Sit-Stand Transfers) conditional independence Shannon (Stand-Sit Transfers) conditional independence Iow-Wixmi-Rgr Assistive Device (Transfers) rolling walker Shannon (Toilet Transfers) conditional independence Assistive Device (Toilet Transfers) rolling walker Impairments (Transfers) ROM (range of motion) decreased;pain;strength decreased Gait Assessment/Treatment Shannon (Gait) conditional independence Assistive Device (Gait) rolling walker Distance in Feet (Gait) >150ft Gait Pattern Analysis swing-through gait Impairments (Gait) pain;ROM (range of motion) decreased;strength decreased Comment (Gait) Pt demonstrates mild antalgic gait pattern, steady with use of walker Stairs Assessment/Treatment Number of Stairs (Stairs) 13 Handrail Location (Stairs) left side (ascending) Shannon (Stairs) conditional independence Technique (Stairs) ewgn-dg-odlj (ascending);zsdu-xr-qtai (descending) Impairments (Stairs) pain;ROM (range of motion) decreased;strength decreased Comment (Stairs) Steady with use of railing Motor Skills/Interventions Additional Documentation Therapeutic Exercise (Group) Therapeutic Exercise Lower Extremity (Therapeutic Exercise) gluteal sets;hamstring sets, right;heel slides, right;LAQ (long arc quad), right;quad sets, right;SAQ (short arc quad), right;other (see comments) (adductor sets, ankle pumps) Sets/Reps (Therapeutic Exercise) x10 reps each Comment (Therapeutic Exercise) Provided pt with written post op HEP. Pt verbalized and demonstratedgood understanding Plan of Care Review Plan Of Care Reviewed With patient Clinical Impression Therapy Frequency evaluation only (cleared for d/c) Anticipated Equipment Needs at Discharge front wheeled walker Anticipated Discharge Disposition home with assist;home with outpatient services * Plan of Care - Anatoly Vazquez OT - 11/26/2017 9:51 AM EDT Occupational Therapy Evaluation Pertinent History of Current Problem: Pt admitted for R TKR. Precautions/Restrictions: (P) (WBAT, skin breakdown) Assessment: Pt has been seen for occupational therapy evaluation, please refer to associated flowsheet data listed below for details. Cody Bolden presents with the following performance skill deficits and client factors: need to use walker. These performance deficits have led to activity limitations and participation restrictions in the following areas of occupation: community mobility and driving. Patient has support at home for higher level IADLs and tolerated treatment w/o any complaints. Pt wouldbenefit from further inpatient OT interventions to address performance deficits and maximize participation and independence with occupations of daily living. Staff Recommendations: Encourage OOB activity and participation in all self care tasks Anticipated Discharge Disposition: (P) home with assist Pager: [phone] ANATOLY VAZQUEZ, OT 11/26/2017 Occupational Therapy Rehabilitation Department 2017 OT Evaluation Code Rationale: ?? Diagnosis [...] instrument and measurable assessment of functional outcome. 11/26/17 0935 Rehab Evaluation Document Type evaluation Total Evaluation Minutes, Occupational Therapy 14 Patient Effort excellent Symptoms Noted During/After Treatment none General Information Patient Profile Review yes Patient/Family/Caregiver Comments/Observations I am ready to get out of here! Pertinent History of Current Problem Pt admitted for R TKR. Precautions/Restrictions (WBAT, skin breakdown) Living Environment Patient population Adult Living Environment Living Environment Comment Pt able to stay on one level and has a walk in shower with grab bars andchair. Patient has steps into the home with railing. 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 Patient uses cane when needed. Vision Assessment/Intervention Additional Documentation (WFL) Cognitive Assessment/Intervention Additional Documentation (WFL) Pain Scale/Rating Pain Assessment Scale Numbers (Numeric Rating Pain Scale) Pain Level 2 ROM (Range of Motion) Additional Documentation General Assessment (Group) General Range of Motion Detail WNL Bed Mobility Assessment/Treatment Silkry-us-Lft Shannon (Bed Mobility) independent Transfer Assessment/Treatment Bed-Chair Shannon (Transfers) independent Chair-Bed Shannon (Transfers) independent Xhp-Bldkl-Ouj Assistive Device (Transfers) rolling walker Shannon (Sit-Stand Transfers) independent Shannon (Stand-Sit Transfers) independent Ypa-Suqii-Tqa Assistive Device (Transfers) rolling walker Gait Assessment/Treatment Shannon (Gait) independent Assistive Device (Gait) rolling walker AM-PAC Daily Activity AM-PAC Activity Completed? Yes How much help from another person does the patient currently need putting on and taking off regularlower body clothing? 4 - None How much help from another person does the patient currently need with bathing (including washing, rinsing, drying)? 3 - A Little How much help from another person does the patient currently need with toileting, which includes using toilet, bedpan or urinal? 4 - None How much help from another person does the patient currently need putting on and taking off regularupper body clothing? 4 - None How much help from another person does the patient currently need taking care of personal grooming such as brushing teeth? 4 - None How much help from another person does the patient currently need eathing meals? 4 - None AM-PAC Daily Activity Raw Score 23 Daily Activity T-Scale Score 51.12 Daily Activity CMS 0-100% Score 15.86 ADL Assessment/Intervention Additional Documentation Lower Body Dressing Assessment/Training (Group);Bathing Assessment/Training (Group) Bathing Assessment/Training Comment (Bathing) Discussed shower safety and need for supervision for showering. Lower Body Dressing Assessment/Training Position (LB Dressing) standing;sitting Shannon Level (LB Dressing) conditional independence Clinical Impression Criteria for Skilled Therapeutic Interventions Met no Therapy Frequency evaluation only Anticipated Equipment Needs at Discharge (Walker) Anticipated Discharge Disposition home with assist G-Code: Self-Care Status Modifier CURRENT CI - At least 1 percent but less than 20 percent impaired, limited or restricted PROJECTED CI - At least 1 percent but less than 20 percent impaired, limited or restricted DISCHARGE CI - At least 1 percent but less than 20 percent impaired, limited or restricted G Code Rationale: This G-Code and these disability modifiers were selected as the primary therapy goal based upon the patient's evaluation including the following functional test(s) AM-PAC - ActivityMeasure for Post-Acute Care. Current ability measures, co-morbidities and clinical judgement were also used to select the disability modifier. Mr. Bolden's current G-Code functional level is 15.8% impaired based upon AMP-PAC score. * Plan of Care - Brenda Flynn RN - 11/26/2017 2:14 AM EDT Problem: Patient Care Overview Goal: Plan of Care Review Outcome: Ongoing (Interventions Implemented as Appropriate) 11/26/17 0205 Coping/Psychosocial Plan Of Care Reviewed With patient Plan of Care Review Progress progress toward functional goals as expected OUTCOME EVALUATION NOTE: OUTCOME SUMMARY: Yash is a 67 y/o male s/p right TKA Yash had a good night and rested appropriately between care Vitals and physical assessment as documented His pain is under good control with scheduled tylenol and oxycodone prn He is ambulating w/ a walker independently, voiding and tolerating his diet PLAN MOVING FORWARD: Monitor vitals pain and I&O Encourage/assist w/ ambulation Diet as tolerated Neurovascular checks Q4 Cryocuff Blood glucose monitoring AC/HS Labs in AM Cluster care to allow for periods of rest INDIVIDUALIZED FALL PREVENTION INTERVENTIONS: Patient-specific fall risk factors per assessment: [current deficits]: Pt is a low/moderate risk tofall r/t recent surgical procedure, lingering effects of anesthesia and use of narcotics. Assistance [level of assistance required for transfers and ambulation]: Independent standby as needed Supervision [direct monitoring required during toileting and ADLs]: none Surveillance [continuous indirect monitoring]: Hourly rounding Patient-specific fall prevention interventions for sensory deficits provided, if applicable: NA CPG GOAL OUTCOME EVALUATION: Goal: Fall Prevention-Safe Patient Handling Outcome: Ongoing (Interventions Implemented as Appropriate) 11/25/17200411/26/17 0130 Stephens Fall Risk History of Falling 0 -- Secondary Diagnosis 15 -- Ambulatory Aids 0 -- Intravenous Therapy/Heparin/Saline Lock 0 -- Gait/Transferring 10 -- Mental Status 0 -- Score 25 -- OTHER Stephens Fall Risk Med -- Restraint Interventions Safety Promotion/Fall Prevention nonskid shoes/slippers when out of bed;fall prevention program maintained;safety round/check completed -- Positioning Body Position independent;supine -- Activity Activity Type -- ambulated in posey;ambulated to bathroom Activity Assistance Provided -- independent;assistance, stand-by Assistive Device Utilized -- front-wheel walker Goal: Infection Control Outcome: Ongoing (Interventions Implemented as Appropriate) 11/25/172004 Safety Interventions Isolation Precautions standard precautions maintained Infection Prevention single patient room provided;rest/sleep promoted;environmental surveillance performed Coping Strategies Supportive Measures decision-making supported;self-care encouraged;active listening utilized Goal: Discharge Needs Assessment Outcome: Ongoing (Interventions Implemented as Appropriate) 11/26/17204 Discharge Needs Assessment Concerns To Be Addressed no discharge needs identified Readmission Within The Last 30 Days no previous admission in last 30 days Equipment Needed After Discharge none Discharge Disposition home or self-care Current Health Anticipated Changes Related to Illness none Activity/Self Care Review of Systems Equipment Currently Used at Home none Living Environment Transportation Available car;family or friend will provide Goal: Interdisciplinary Rounds/Family Conf Outcome: Ongoing (Interventions Implemented as Appropriate) 11/26/17204 Interdisciplinary Rounds/Family Conf Participants nursing;patient * Op Note - Breezy Dale MD - 11/25/2017 12:15 PM EDT [facility] Operative Note Patient Name: Cody Bolden : [id number] MR#: [id number] Case Date: 11/25/2017 Surgeon: Surgeon(s) and Role: * Breezy Dale MD - Primary * Anmol De Leon MD - Resident-Public Health Doctor Preoperative Diagnosis: Osteoarthritis right knee Postoperative Diagnosis: Same Procedure Performed: right Total Knee Arthroplasty (CPT 43455) Anesthesia: Spinal, Adductor Canal Block (performed in block area) IVF: 800ml of crystaloid Estimated Blood Loss: 350ml Urine Output: No moran Drains: none Specimens removed during surgery: None Surgical Closure: Primary Closure - closure of ALL tissue levels during the original surgery regardless of wires, wickes, drains, or other devices extruding through the incision Complications: None apparent Tourniquet: none Right TKR Post OP RT Intra Op Knee Flexion (degrees): 120 RT Intra Op Knee Extension (degrees): 0 RT Intra Op Stability Ap Translation: <5mm RT Intra Op Stability Varus: <5mm RT Intra Op Stability Valgus: <5mm RT Lateral Release Performed: No RT Intra Op Bone Cement : Antibiotic RT Surgical Prep: Duraprep RT Intra Op Surgical Approach: Quad Split RT Intra Op FX at Index Surgery: No RT Skin Closure: Subcuticular Indications for the Procedure: Mr. Bolden is a 67 y.o. year old male who has been followed in the out-patient clinic with a history of progressively worsening right knee pain secondary to degenerative arthritis. After having failed conservative, non-surgical attempts at managing the pain and limitations of functional capabilities, it was felt that the only remaining option was surgical. A detailed conversation regarding the risks and benefits of knee arthroplasty was had with the patient. The risks discussed included but were not limited to: bleeding (which may or may not require transfusion), infection, damage to nervesor blood vessels, deep venous thrombosis, pulmonary embolus, prosthetic failure, loosening, prosthetic fracture, femur patella or tibia fracture, persistent pain, need for future surgery, medical complications (including cardiac, respiratory and neurologic complications), anesthetic complications, and . Subsequent to this conversation, all of the patient???s questions were answered in great detail and informed consent was obtained for a right total knee arthroplasty. He received preoperative medical clearance and was felt optimized for surgery. Today, he identified the right knee as the correct operative side. Implants: Femur: DePuy Attune, Cruciate Retaining Size 8 Tibia: DePuy Attune, Size 8 Poly: 5mm fixed platform Patella: 41mm oval Intraoperative Findings: Arthritic changes in all three compartments worse in the medial compartment of the knee as evidenced by loss of cartilage, exposed eburnated bone and osteophyte formation. ACL intact. Procedure: The patient was met in the pre-operative holding area where the appropriate site was marked, 24 hour update performed, and the pre-operative checklist completed. He was then brought to the operating room on a stretcher and transferred to the OR table where the above anesthetic was administered. Venodynes were applied to the non-operative leg. A foot post and thigh post were placed to aid in intra-op leg positioning. A clinical time-out was held confirming the correct patient name, MRN, , planned procedure, site, antibiotic start time and agent, and outline of any surgical concerns. All in attendance were in agreement to proceed. Weight based dosing of tranexamic acid was administered prior to making an incision. Skin Preparation: The skin of the lower extremity was prepped using alcohol, chlorhexidine, and Duraprep. The prep was allowed to fully dry and sterile drapes were applied. Surgical Approach: The knee was flexed and the skin was infiltrated with 10cc of 0.25% plain marcaine prior to making the incision. A knife was used to incise the skin from 2 finger breadths above the patella to just medial to the tibial tubercle. Hemostasis was obtained using electrocautery and small full thickness skin flaps were elevated just enough to identify the extensor mechanism. The arthrotomy site was infiltrated with the pericapsular mixture consisting of 0.25% Marcaine withepinephrine, 50mcg of clonidine and 30mg of Ketorolac. A medial parapatellar arthrotomy was performed leaving a 2mm cuff of tendon for later repair. Electrocautery was used to cauterize bleeders. A Zretractor was placed medially within the knee to place the tissues on tension and a triangle of fatpad was removed with the anterior 1/3 of the medial meniscus. A medial peel was then performed around the tibia to the mid coronal line. Overhanging tibial and femoral osteophytes were removed. The knee was then placed into extension. A bent robinson was placed around the femur laterally and the fat pad from the inferior nose of the patella was excised down to the tibia exposing the lateral plateau. The patella tendon was retracted with a Z retractor and the lateral plateau was exposed from thejoint line distally exposing the anterior lateral plateau towards the region of Gerdy's tubercle tocreate a symmetric soft tissue peel. Patella: With the knee remaining in extension the patella was held vertical and measured using a caliper to be 25mm thick. Soft tissue was removed around the patella circumferentially. The patella cut guide was placed over the patella and the patella was cut with an oscillating saw. A 41mm oval patella guide was used to size the patella and 2 more millimeters were taken off the patella to match the implant thickness. The appropriate lug holes were drilled. A trial patella button was placed and was re-measured with a caliper. Happy with our patella preparation the patella was subluxed laterally to the femur. Lateral osteophyte was then removed. Distal Femur: The knee was then brought up into flexion. Femoral notch osteophyte was removed to expose the PCL. A bent robinson was placed laterally to retract the patella and extensor mechanism. A Z retractor was placed medially to protect the MCL. A step drill was used to gain access to the femoral canal using the patients anatomy and the pre-operative standing alignment film to determine the starting point. T he drill was slowly advanced into the femoral canal. The canal was irrigated and suction was used to remove fat and bone from the canal. An intramedullary femoral guide was then advanced into the femoral canal. The guide was set to cut the distal femur in 6 degrees of valgus. Any remaining cartilage was removed from the distal femur so that the guide sat flush on distal subchondral bone. Accounting for cartilage and bone loss the distal femoral resection was set to take 7mm of distal bone in aneffort to restore the joint line back to the anatomic position. The cut block was secured with pinsand the distal femur was cut with an oscillating saw. Tibia: A sharp bent robinson was placed behind the ACL and this was released. The anterior horn of the lateral meniscus was released. The robinson was then placed posterior medially behind the tibia and it was subluxed anterior. An extramedullary tibial cut guide was placed over the anterior proximal tibia in line with the tibial crest and centered over the talus. The guide was pinned with ~5-7 degrees of slope to take approximately 8-10mm of bone off the less affected side. Our pre-operative xrays were used as a guide in judging our resection. An oscillating saw was used to cut the medial side first with a Z retractor protecting the MCL. The lateral side was then cut with both a Z retractor and bent robinson protecting the extensor mechanism and LCL. The tibial bone was then removed after freeing it of it's soft tissue attachments. The ressected tibial bone was then used to aid in sizing the appropriate implant. Remaining tibial osteophyte was removed. The knee was then placed into extension and a spacer block was placed into the extension space. The knee obtained full extension and was balanced to varus and valgus stress. A drop helena was placedthrough the extension block to confirm the overall alignment of the limb. The spacer block and pins were removed. Femur: The knee was then brought into flexion. A 10mm orange spacer block was placed medially and a 13mm blue spacer block was placed laterally. At 90 degrees of flexion, medial and lateral laxity was checked and the flexion gap was felt to be balanced. The spacer blocks were removed and the metal predator control trapper was placed on the medial side with the blue spacer block placed laterally. The pin guide was placed into the metal spacer and the femur was sized from the anterior lateral side of the trochlea to restore trochlear offset and height. The femoral component size was determined and the appropriate pins were placed through the guide. The spacer blocks were removed and the appropriate sized 4 in 1 cut guide was placed. This was heldin place with drill pins. The anterior cut was check with an chance wing to assure we would not notch. We first made our posterior medial cut with a small blade protecting the MCL with Z retractor. The was measured with a caliper to assure we were restoring the appropriate anatomy of our flexion space. Happy with our cut we then made our posterior lateral cut protecting popliteus with a retractor.We proceeded to make out anterior and chamfer cuts. We then removed the cutting block and pins. A saw was used with the femoral guide to make the remaining femoral cut. A large lamina program consultant was placed in the notch. On the medial side we removed the remaining meniscus and then ressected posterior osteophyte. The pericapsular injection was then infiltrated into themedial and posterior structures making sure to aspirate before infiltrating. The lamina program consultant was changed to view the lateral side. We removed the remaining lateral meniscus and then ressected posterior osteophyte. The pericapsular injection was then infiltrated into the lateral structures making sure to aspirate before infiltrating and avoiding the region of the peroneal nerve. Trials and Tibia Preparation: The tibia was then exposed again in flexion and a tibial trial was placed with a 5mm poly trial. The knee was placed at 90 degress and the femoral trial was placed and impacted. Any remaining osteophyte was removed. The knee was then brought through a full range of motion. At that point the knee was found to be stable and we were happy with our implant selection. The tibial rotation was then marked with a bovie and the lug holes on the femur were drilled. The trials were then removed. The knee was then brought into flexion again and subluxed anterior with a PCL retractor. The appropriated sized tibial trial was placed in external rotation to correlate with our prior marking and the medial 1/3 of the tibial tubercle. This allowed the tray to be flush with the bone posterior laterally and anterior medially. The trial was pinned in place and the tibia was prepared using the appropriate tower with reamer and keel punch. At that point all instruments and trials were removed from the knee. Final Implants: The knee was then copiously irrigated with pulse lavage to clear all bony surfaces of debris and blood. Drill holes were placed on the exposed eburnated bone to increase cement penetration. The implants were opened on the back table. In a cement gun 2 bags of high viscosity cement with antibiotics was mixed using a vacuum. Cement was placed on the back surface of all implants and then pressurizedinto the exposed bone on the tibia first. The tibial implant was placed in the appropriate orientation and impacted into the bone. Excess cement was removed. The tibial polyethylene was inserted and impacted into place. The tibia was then reduced under the femur. Cement was injected into the exposed femoral bony surfaces and then the femoral component was aligned with the lug holes and impacted. Excess cement was removed. The knee was brought into extension and loaded. The patella was then irrigated with pulse lavage and the patella button with cement was placed over the pre-drilled lug holes. This was held in place with a patella clamp and excess cement was removed. The remaining per-capsular injection was injected into the periosteum and soft tissues for a total of 50cc. The knee was flexed and any remaining cement that had been expressed was removed. Once the cement was hardened the patella clamp was removed and the knee was irrigated one last time. The knee was brought through a final range of motion which demonstrated varus/valgus and anterior/posterior stability with appropriate patella tracking. Closure: The knee was placed in 60 degrees of flexion and the arthrotomy was closed initially with 0 vicryl tacking sutures which was over sewn with a #2 barbed running suture. The deep layers were closed with with a running 0 Stratafix. The skin was closed with a running 3-0 monocryl. The skin was sealed with skin glue. A sterile Mepilex Ag dressing was applied. A cryocuff was applied. The needle, sponge and instrument counts were correct at the end of the procedure. Attestation: Case Date: 11/25/2017 I was present and I participated during the entire procedure (does not need to include opening and closing). BREEZY DALE MD 11/25/2017 Post-operative Plan: (avoid IV narcotics) ?? 5-10 mg Oxycodone Q 4 hours po PRN ?? 2 mg Dilaudid po for breakthrough pain q 3-4 hours?? PRN ?? 1000mg Tylenol po??? q8 hour ?? 600 mg Neurontin po qhs for 2 days followed by 300 mg Neurontin po qhs for 4 weeks (for insomnia) ?? Dexamethasone 4 mg po q 24 hours for 2 days (if diabetic add SSI) ?? Protonix 20mg qd x 2 weeks (or other PPI) ?? Zofran 4 mg po/iv q 8 hours PRN nausea RECCO: Continue his Cellcept, Prograf, Magnesium and Synthroid Resume KPhos, Flomax FSBS q 4 with sensitive correction Humalog Resume Glipizide when tolerating po intake well. AVOID NSAID use unless approved per Dr. Eagle Administer IVF postoperatively as recommended per Dr. Eagle ?? Encourage voiding q 4 hours. If unable to void bladder scan and encourage to void in 30 minutes.If PVR > 400 then straight cath. ?? Perioperative prophylactic antibiotics for the next 24 hours ?? Weight bearing status of operative extremity: Weight bearing as tolerated ?? Wound closure: Subcuticular absorbable suture with skin glue ?? Dressing changes: Mepilex Silver (Do not change for 7 days then a dry sterile dressing) ?? Follow-up Plan: As scheduled prior to surgery (approx. 5 weeks with x-rays) ?? Anticoagulation: Plavix ?? Any possible barriers to discharge: None ?? Plan for hospital stay: Standard ?? Anticipated Length of Stay: 1-2 days Implant Summary: Implant Name Type Inv. Item Serial No. 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 LRB No. Used Action CEMENT,BNE,SMARTSET,GHV,40G [id number]) - [id number] IMPLANTS CEMENT,BNE,SMARTSET,GHV,40G ([id number]) Depuy Label Sewer - [id number] Right 2 Implanted BASE,ATUN,TIB,FB,CMNT,SZ8 ([id number]) (AUTOREQ) - [id number] IMPLANTS BASE,ATUN,TIB,FB,CMNT,SZ8 ([id number]) (AUTOREQ) Depuy Label Sewer - [id number] Right 1 Implanted CAESAR CAUSEY MDL,DOME,41MM ([id number]) (AUTOREQ) - [id number] IMPLANTS CAESAR CAUSEY MDL,DOME,41MM ([id number]) (AUTOREQ) Depuy Label Sewer - [id number] Right 1 Implanted COMPO,ATTUNE,FEM,CR,SZ8,RT ([id number]) (AUTOREQ) - [id number] IMPLANTS COMPO,ATTUNE,FEM,CR,SZ8,RT ([id number]) (AUTOREQ) Depuy Label Sewer - [id number] Right 1 Implanted INSER,ATTUNE,CR,FB,SZ8,5MM ([id number]) (AUTOREQ) - [id number] IMPLANTS INSER,ATTUNE,CR,FB,SZ8,5MM ([id number]) (AUTOREQ) Depuy Label Sewer - [id number] Right 1 Implanted documented in this encounter Plan of Treatment Upcoming Encounters Date Type Department Care Team (Late st Contact Info) Description 04/15/2024 10:00 AM EDT Hospital Encounter Non-[place] [id number] Arrived documented as of this encounter Goals Goal Patient Goal Type Associated Problems Recent Progress Patient-Stated? Author DH Home Medication Compliance and Understanding Patient Facing Action Plan On track( 017 10:41 AM EDT) Selena Scott, [facility] Note: Patient Goal: Clear hepatitis C Timeframe to meet goal: within 12 weeks of therapy documented as of this encounter Procedures Procedure Name Priority Date/Time Associated Diagnosis Comments POCT GLUCOSE Routine 11/26/2017 11:22 AM EDT POCT GLUCOSE Routine 11/26/2017 7:15 AM EDT HEMOGRAM Routine 11/26/2017 1:33 AM EDT DIFFERENTIAL, AUTOMATED Routine 11/26/2017 1:33 AM EDT CBC (WITH DIFF) Routine 11/26/2017 1:33 AM EDT BASIC METABOLIC PANEL Routine 11/26/2017 1:33 AM EDT POCT GLUCOSE Routine 11/25/2017 10:04 PM EDT POCT GLUCOSE Routine 11/25/2017 7:06 PM EDT POCT GLUCOSE Routine 11/25/2017 3:36 PM EDT POCT GLUCOSE Routine 11/25/2017 1:05 PM EDT POCT GLUCOSE Routine 11/25/2017 11:32 AM EDT MODIFIER, ATTUNE CURVED FIXED PLATFORM, DEPUY Yes 11/25/2017 10:29 AM EDT Osteoarthritis of the knee TOTAL KNEE ARTHROPLASTY (WRVU 19.6) Yes 11/25/2017 10:29 AM EDT Osteoarthritis of the knee POCT GLUCOSE Routine 11/25/2017 10:27 AM EDT BOAT GARNISHER SCAN 11/25/2017 12:00 AM EDT EKG 12-LEAD Routine 11/04/2017 12:43 PM EDT Pain of right lower extremity Debility Primary osteoarthritis of right knee documented in this encounter Results * (ABNORMAL) POCT Glucose (11/26/2017 11:22 AM EDT) Glucose, POC 208(H) 65 - 199 mg/dL [facility] Comment: Supplemental ranges: <140 mg/dL before meals <180 mg/dL all other times of the day Blood specimen (specimen) 11/26/2017 11:22 AM EDT 11/26/2017 11:22 AM EDT Breezy Dale MD POINT OF CARE TEST ORDERABLES [facility] [place] [address] * POCT Glucose (11/26/2017 7:15 AM EDT) Glucose, POC 176 65 - 199 mg/dL [facility] Comment: Supplemental ranges: <140 mg/dL before meals <180 mg/dL all other times of the day Blood specimen (specimen) 11/26/2017 7:15 AM EDT 11/26/2017 7:15 AM EDT Breezy Dale MD POINT OF CARE TEST ORDERABLES [facility] [address] * (ABNORMAL) Differential, Automated (11/26/2017 1:33 AM EDT) Neutrophil % 90.9 % [facility] Neutrophil Absolute 11.45(H) 1.70 - 6.10 x10(3)/mc L [facility] Lymph % 5.2 % [facility] Lymphocytes Abs 0.6(L) 0.9 - 3.2 x10(3)/mc L [facility] Monocyte % 3.0 % [facility] Monocyte Abs 0.4 0.3 - 0.9 x10(3)/mc L [facility] Eos % 0.2 % [facility] Eosinophils Abs 0.0 0.0 - 0.4 x10(3)/mc L [facility] Basophil % 0.3 % [facility] Baso Absolute 0.0 0.0 - 0.1 x10(3)/mc L [facility] Immature Gran [...] Absolute 0.05(H) 0.00 - 0.04 x10(3)/mc L [facility] Blood specimen (specimen) 11/26/2017 1:33 AM EDT 11/26/2017 1:37 AM EDT Narrative Resulting Agency Comment Spec In Lab Anmol De Leon MD HEMATOLOGY ORDERABLE S Performing Organization Address City/[facility]/ZIP Co de Phone Number [facility] [place] [address] * (ABNORMAL) Hemogram (11/26/2017 1:33 AM EDT) White Blood Cell 12.6(H) 4.0 - 9.5 x10(3)/mc L [facility] Red Blood Cell 4.90 4.58 - 5.54 x10(6)/mc L [facility] Hemoglobin 15.1 13.7 - 16.5 gm/dL [facility] Hematocrit 42.8 40.5 - 48.5 % [facility] Mean Cell Volume 87.3 82.9 - 93.1 fL [facility] Mean Cell Hemoglobin 30.8 27.5 - 32.1 pg [facility] Mean Cell Hemoglobin Concentration 35.3 32.0 - 35.7 gm/dL [facility] Platelet 249 145 - 357 x10(3)/mc L [facility] RDW Standard Deviation 42.6 36.0 - 45.0 fL [facility] RDW coefficient of variation 13.3 11.4 - 13.8 % [facility] Mean Platelet Volume 9.4 7.6 - 12.9 fL [facility] NRBC% auto 0.0 % [facility] NRBC Absolute 0.000 0.000 - 0.000 x10(3)/mc L [facility] Blood specimen (specimen) 11/26/2017 1:33 AM EDT 11/26/2017 1:37 AM EDT Narrative Resulting Agency Comment Spec In Lab Anmol De Leon MD HEMATOLOGY ORDERABLE S Performing Organization Address City/[facility]/ZIP Co de Phone Number [facility] [place] [address] * Basic Metabolic Panel (non-fasting) (11/26/2017 1:33 AM EDT) Glucose 192 65 - 199 mg/dL [facility] Comment:Diabetes: >=200 mg/d L plus symptoms Blood Urea Nitrogen 15 10 - 20 mg/dL [facility] Creatinine 1.17 0.80 - 1.50 mg/dL [facility] mmol/L [facility] Carbon Dioxide 24 22 - 31 mmol/L [facility] Anion Gap 15 5 - 15 mmol/L [facility] Calcium 8.8 8.5 - 10.5 mg/dL [facility] Est Glomerular Filtration Rate >60 >=60 [facility] Comment: The reported eGFR should be multiplied by 1.2 for patients. The MDRD is not an appropriate measure of renal function for patients with body mass extremes or in patients with acute kidney failure. [email or web address]/DHnkdep [email or web address] Blood specimen (specimen) 11/26/2017 1:33 AM EDT 11/26/2017 1:37 AM EDT Narrative Resulting Agency Comment Spec In Lab Breezy Dale MD CHEMISTRY ORDERABLE S [facility] [place] [address] * POCT Glucose (11/25/2017 10:04 PM EDT) Glucose, POC 192 65 - 199 mg/dL [facility] Comment: Supplemental ranges: <140 mg/dL before meals <180 mg/dL all other times of the day Blood specimen (specimen) 11/25/2017 10:04 PM EDT 11/25/2017 10:04 PM EDT Breezy Dale MD POINT OF CARE TEST ORDERABLES [facility] [place] [address] * POCT Glucose (11/25/2017 7:06 PM EDT) Glucose, POC 116 65 - 199 mg/dL [facility] Comment: Supplemental ranges: <140 mg/dL before meals <180 mg/dL all other times of the day Blood specimen (specimen) 11/25/2017 7:06 PM EDT 11/25/2017 7:06 PM EDT Breezy Dale MD POINT OF CARE TEST ORDERABLES Performing Organization Address [facility]/ZIP Co de Phone Number [facility] [place] [address] * POCT Glucose (11/25/2017 3:36 PM EDT) Glucose, POC 167 65 - 199 mg/dL [facility] Comment: Supplemental ranges: <140 mg/dL before meals <180 mg/dL all other times of the day Blood specimen (specimen) 11/25/2017 3:36 PM EDT 11/25/2017 3:36 PM EDT Breezy Dale MD POINT OF CARE TEST ORDERABLES [facility] [place] [address] * POCT Glucose (11/25/2017 1:05 PM EDT) Glucose, POC 146 65 - 199 mg/dL [facility] Comment: Supplemental ranges: <140 mg/dL before meals <180 mg/dL all other times of the day Blood specimen (specimen) 11/25/2017 1:05 PM EDT 11/25/2017 1:05 PM EDT Breezy Dale MD POINT OF CARE TEST ORDERABLES Performing Organization Address [facility] Co de Phone Number [facility] [place] [address] * POCT Glucose (11/25/2017 11:32 AM EDT) Glucose, POC 142 65 - 199 mg/dL [facility] Comment: Supplemental ranges: <140 mg/dL before meals <180 mg/dL all other times of the day Blood specimen (specimen) 11/25/2017 11:32 AM EDT 11/25/2017 11:32 AM EDT Breezy Dale MD POINT OF CARE TEST ORDERABLES Performing Organization Address [facility] Co de Phone Number [facility] [place] [address] * POCT Glucose (11/25/2017 10:27 AM EDT) Glucose, POC 141 65 - 199 mg/dL [facility] Comment: Supplemental ranges: <140 mg/dL before meals <180 mg/dL all other times of the day Blood specimen (specimen) 11/25/2017 10:27 AM EDT 11/25/2017 10:27 AM EDT Breezy Dale MD POINT OF CARE TEST ORDERABLES Performing Organization Address [facility] Co de Phone Number [facility] [place] [address] * SCAN DOC: BOAT GARNISHER (11/25/2017 12:00 AM EDT) Anatomical Region Laterality Modality Other Narrative 11/25/2017 12:00 AM EDT Ordered by an unspecified provider. Scanning Provider MEDIA MGR SCAN EXT O RDR/RSLT * EKG 12 Lead (11/04/2017 12:43 PM EDT) Ventricular rate 65 BPM MUSE SYSTEM Atrial Rate 65 BPM MUSE SYSTEM P-R Interval 178 ms MUSE SYSTEM QRS Duration 102 ms MUSE SYSTEM Q-T Interval 436 ms MUSE SYSTEM QTC Calculated (Bezet) 453 ms MUSE SYSTEM Calculated P Artemus 44 degrees MUSE SYSTEM Calculated R Artemus -59 degrees MUSE SYSTEM Calculated T Artemus 2 degrees MUSE SYSTEM INTERPRETATION Sinus rhythm with Premature atrial complexes with Aberrant conduction Left anterior fascicular block Abnormal ECG When compared with ECG of 22-JUN-2016 20:24, No significant change was found Confirmed by Damien Ellis MD ([id number]) on 11/04/2017 2:05:54 PM MUSE SYSTEM 11/04/2017 12:4 3 PM EDT 11/04/2017 2:05 PM EDT Breezy Dale MD ECG ORDERABLES MUSE SYSTEM documented in this encounter Visit Diagnoses Not on filedocumented in this encounter Administered Medications Inactive Administered Medications - up to 3 most recent administrations Medication Order MAR Action Action Date Dose Rate Site acetaminophen (TYLENOL) tablet 1,000 mg 1,000 mg, Oral, ONCE, 1 dose, On Thu11/25/17 at 1015, Administer on arrival in Same Day Program, Day of Surgery (Day of Procedure), Routine Given 11/25/2017 10:05 AM EDT 1,000 mg acetaminophen (TYLENOL) tablet 1,000 mg 1,000 mg, Oral, EVERY 8 HOURS SCHEDULED, First dose on Thu11/25/17 at 1545, Until Discontinued, Maximum dose of acetaminophen is 4000 mg from all sources in 24 hours., Routine Given 11/26/2017 12:05 PM EDT 1,000 mg Given 11/26/2017 2:00 AM EDT 1,000 mg Given 11/25/2017 7:00 PM EDT 1,000 mg bacitracin injection ONCE PRN, Starting on Thu11/25/17 at 1205, Until Laura 11/26/17 at 1714, Intra-Operative (Intra-Procedure), Routine Given 11/25/2017 12:05 PM EDT 50,000 Units 19- Surgical Site BUpivacaine (PF) (MARCAINE) 0.25 % (2.5 mg/mL) injection ONCE PRN, Starting on Thu11/25/17 at 1220, Until Thu11/26/17 at 1714, Intra-Operative (Intra-Procedure), Routine Given 11/25/2017 12:20 PM EDT 10 mLs 19- Surgical Site BUpivacaine-EPINEPHrine 0.25 %-1:200,000 injection ONCE PRN, Starting on Thu11/25/17 at 1207, Until Thu11/26/17 at 1714, Intra-Operative (Intra-Procedure), Routine Given 11/25/2017 12:07 PM EDT 50 mLs 19- Surgical Site ceFAZolin (ANCEF) 1g in dextrose 5% 50mL 1 g, Intravenous, EVERY 8 HOURS, 3 doses, First dose on Thu11/25/17 at 1500, Last dose on Thu11/26/17 at 0700, Administer over 30 Minutes, Adjust to 4 hours from intraoperative dose. * Beta-lactam based antibiotics (eg. Ampicillin, Cefazolin, Aztreonam) should be administered within 4 hours of the preceding intraoperative dose. * Vancomycin, Flouroquinolones, Clindamycin, Gentamicin, and Metronidazole should be administered within 8 hours of the preceding intraoperative dose., Recovery (Recovery-Hospital Unit), Indication for (Active or Suspected): Prophylaxis New Bag 11/26/2017 6:22 AM EDT 1 g 100 mL/hr New Bag 11/25/2017 11:15 PM EDT 1 g 100 mL/hr New Bag 11/25/2017 3:45 PM EDT 1 g 100 mL/hr cloNIDine injection ONCE PRN, Starting on Thu11/25/17 at 1210, Until Thu11/26/17 at 1714, Intra-Operative (Intra-Procedure), Routine Given 11/25/2017 12:10 PM EDT 50 mcg 19- Surgical Site clopidogrel (PLAVIX) tablet 75 mg 75 mg, Oral, DAILY, First dose on Thu11/25/17 at 1700, Until Discontinued, Routine Given 11/25/2017 7:00 PM EDT 75 mg dexamethasone (DECADRON) tablet 4 mg 4 mg, Oral, DAILY, 2 doses, First dose on Thu11/25/17 at 1545, Last dose on Thu11/26/17 at 0900, Routine Given 11/26/2017 8:29 AM EDT 4 mg Given 11/25/2017 6:27 PM EDT 4 mg dextrose 50% IV syringe 25-50 mL 25-50 mL (12.5-25 g), Intravenous, EVERY 1 HOUR PRN, Starting on Thu11/25/17 at 1519, Until Thu11/26/17 at 1714, Low blood sugar, For BG 50-70: 120 mL Juice or Regular (not diet) soda OR 12.5 gram (25 mL) Dextrose 50% IV OR, if no IV access, 1 mg Glucagon IM. Recheck BG in 30 minutes. May repeat juice, dextrose or glucagon once per episode For BG less than 50: 240 mL Juice or Regular (not diet) soda OR 25 grams (50 mL) Dextrose 50% IV OR, if no IV access, 1 mg Glucagon IM. Recheck BG in 30 minutes. May repeat juice, dextrose, or glucagon once per episode. To avoid extravasation, push Dextrose 50% SLOWLY (3 mL over 1 minute) in a patent, running IV, preferably a central line. For persistent hypoglycemia, consider longer-acting treatment for the duration of the active insulin., Routine fentaNYL (PF) 50mcg/mL injection 25-50 mcg, Intravenous, EVERY 5 MIN PRN, Starting on Thu11/25/17 at 0946, Until Thu11/25/17 at 1519, nerve block, Day of Surgery (Day of Procedure), Routine Given 11/25/2017 10:14 AM EDT 25 mcg gabapentin (NEURONTIN) capsule 300 mg 300 mg, Oral, ONCE, 1 dose, On Thu11/25/17 at 1015, Administer on arrival in Same Day Program, Day of Surgery (Day of Procedure), Routine Given 11/25/2017 10:05 AM EDT 300 mg gabapentin (NEURONTIN) capsule 300 mg 300 mg, Oral, NIGHTLY, First dose on Thu11/27/17 at 2100, Until Discontinued, Routine gabapentin (NEURONTIN) capsule 600 mg 600 mg, Oral, NIGHTLY, 2 doses, First dose on Thu11/25/17 at 2100, Last dose on Thu11/26/17 at 2100, Routine Given 11/25/2017 8:42 PM EDT 600 mg glucagon (human recombinant) injection SolR 1 mg 1 mg, Intramuscular, EVERY 1 HOUR PRN, Starting on Thu11/25/17 at 1519, Until Laura 11/26/17 at 1714, Low blood sugar, For BG 50-70: 120 mL Juice or Regular (not diet) soda OR 12.5 gram (25 mL) Dextrose 50% IV OR, if no IV access, 1 mg Glucagon IM. Recheck BG in 30 minutes. May repeat juice, dextrose or glucagon once per episode For BG less than 50: 240 mL Juice or Regular (not diet) soda OR 25 grams (50 mL) Dextrose 50% IV OR, if no IV access, 1 mg Glucagon IM. Recheck BG in 30 minutes. May repeat juice, dextrose, or glucagon once per episode. To avoid extravasation, push Dextrose 50% SLOWLY (3 mL over 1 minute) in a patent, running IV, preferably a central line. For persistent hypoglycemia, consider longer-acting treatment for the duration of the active insulin., Routine insulin lispro (HumaLOG) VIAL injection 1-4 Units 1-4 Units, Subcutaneous, 3 TIMES DAILY BEFORE MEALS, First dose on Thu11/25/17 at 1630, Until Discontinued, CORRECTION BOLUS Sensitive to insulin [...] specifically told to do so., Routine Given 11/26/2017 12:06 PM EDT 3 Units Given 11/26/2017 7:27 AM EDT 2 Units Given 11/25/2017 4:20 PM EDT 2 Units ketorolac (TORADOL) injection ONCE PRN, Starting on Thu11/25/17 at 1210, Until Laura 11/26/17 at 1714, Intra-Operative (Intra-Procedure), Routine Given 11/25/2017 12:10 PM EDT 30 mg 19- Surgical Site lactated Ringers infusion 1,000 mL 1,000 mL, at 100 mL/hr, Intravenous, CONTINUOUS, Starting on Thu11/25/17 at 1015, Until Thu11/25/17 at 1519, Day of Surgery (Day of Procedure) New Bag 11/25/2017 10:15 AM EDT 1,000 mLs 100 mL/hr levothyroxine (SYNTHROID) tablet 137 mcg 137 mcg, Oral, EVERY MORNING, First dose on Laura 11/26/17 at 0600, Until Discontinued, Routine Given 11/26/2017 6:22 AM EDT 137 mcg magnesium oxide (MAG-OX) tablet 400 mg 400 mg, Oral, 2 TIMES DAILY, First dose on Thu11/25/17 at 2100, Until Discontinued, Routine Given 11/26/2017 8:28 AM EDT 400 mg Given 11/25/2017 8:42 PM EDT 400 mg midazolam (PF) (VERSED) 1 mg/mL injection 1-2 mg 1-2 mg, Intravenous, EVERY 5 MIN PRN, Starting on Thu11/25/17 at 0946, Until Thu11/25/17 at 1519, Sleep, block sedation. 1mg for mild anxiety, 2mg for moderate anxiety, Day of Surgery (Day of Procedure), Routine Given 11/25/2017 10:11 AM EDT 2 mg mycophenolate (CELLCEPT) capsule 250 mg 250 mg, Oral, 2 TIMES DAILY, First dose on Thu11/25/17 at 2000, Until Discontinued, DO NOT CRUSH OR OPEN Administer to patient on empty stomach (1 hour before or two hours after a meal)., Routine Given 11/26/2017 6:22 AM EDT 250 mg Given 11/25/2017 8:42 PM EDT 250 mg ondansetron (ZOFRAN) injection 4 mg 4 mg, Intravenous, EVERY 8 HOURS PRN, Starting on Thu11/25/17 at 1847, Until Laura 11/26/17 at 1714, Nausea, May repeat times one in 30 minutes if ineffective. If multiple antiemetics are ordered, use ondanstron first, Recovery (Recovery-Hospital Unit) ondansetron (ZOFRAN) tablet 4 mg 4 mg, Oral, EVERY 8 HOURS PRN, Starting on Thu11/25/17 at 1847, Until Laura 11/26/17 at 1714, Nausea, Vomiting, If multiple antiemetics are ordered, use ondansetron first. PO Preferred. If patient unable to take PO, may give IV if ordered. May repeat times one in 45 minutes if ineffective., Recovery (Recovery-Hospital Unit), Routine oxyCODONE (ROXICODONE) immediate release tablet 5-15 mg 5-15 mg, Oral, EVERY 4 HOURS PRN, Starting on Thu11/25/17 at 1302, Until Larua 11/26/17 at 1714, Pain, Give 5 mg for mild pain (1-3), 10 mg for moderate pain (4-6) or 15 mg for severe pain (7-10) May give an additional 5 mg in 30 minutes ONCE if pain not relieved., Routine Given 11/26/2017 7:36 AM EDT 10 mg Given 11/26/2017 1:21 AM EDT 10 mg Given 11/25/2017 8:42 PM EDT 10 mg pantoprazole (PROTONIX) tablet 20 mg 20 mg, Oral, DAILY, First dose on Thu11/25/17 at 1545, Until Discontinued, DO NOT CRUSH OR OPEN Given 11/26/2017 8:27 AM EDT 20 mg polyethylene glycol (MIRALAX) packet 17 g 17 g, Oral, 2 TIMES DAILY, First dose on Thu11/25/17 at 2100, Until Discontinued, Routine Given 11/26/2017 8:27 AM EDT 17 g Given 11/25/2017 8:43 PM EDT 17 g potassium phosphate (monobasic) (K-PHOS) tablet 500 mg 500 mg, Oral, 2 TIMES DAILY, First dose on Thu11/25/17 at 2100, Until Discontinued, Dissolve tablets in 6-8 oz of water; for best results, soak tablets in water for 2-5 minutes, then stir and give to patient., Routine Given 11/26/2017 8:29 AM EDT 500 mg Given 11/25/2017 8:41 PM EDT 500 mg senna-docusate (PERICOLACE) 8.6-50 mg per tablet 2 tablet 2 tablet, Oral, 2 TIMES DAILY, First dose on Thu11/25/17 at 2100, Until Discontinued, Routine Given 11/26/2017 8:27 AM EDT 2 tablets Given 11/25/2017 8:42 PM EDT 2 tablets sodium chloride 0.9 % flush 5 mL 5 mL, Intravenous, 2 TIMES DAILY, First dose on Thu11/25/17 at 2100, Until Discontinued, Recovery (Recovery-Hospital Unit), Routine Given 11/25/2017 8:43 PM EDT 5 mLs sodium chloride 0.9% infusion 75 mL/hr, Intravenous, CONTINUOUS, Starting on Thu11/25/17 at 1315, Until Laura 11/26/17 at 1714, Recovery (Recovery-Hospital Unit) New Bag 11/25/2017 1:08 PM EDT 75 mL/h r 75 mL/hr tacrolimus (PROGRAF) capsule 1 mg 1 mg, Oral, NIGHTLY, First dose on Thu11/25/17 at 2100, Until Discontinued, Routine Given 11/25/2017 8:41 PM EDT 1 mg tacrolimus (PROGRAF) capsule 2 mg 2 mg, Oral, DAILY AFTER BREAKFAST, First dose on Laura 11/26/17 at 0900, Until Discontinued, Routine Given 11/26/2017 8:29 AM EDT 2 mg tamsulosin (FLOMAX) ER capsule 0.4 mg 0.4 mg, Oral, NIGHTLY, First dose on Thu11/25/17 at 2100, Until Discontinued, DO NOT CRUSH OR OPEN, Routine Given 11/25/2017 8:41 PM EDT 0.4 mg documented in this encounter Active and Recently Administered Medications Times are shown in EDT. Scheduled Medication Order 11/24/2017 11/25/2017 11/26/2017 acetaminophen (TYLENOL) tablet 1,000 mg (COMPLETED) 1,000 mg, Oral, ONCE, 1 dose, On Thu11/25/17 at 1015, Administer on arrival in Same Day Program, Day of Surgery (Day of Procedure), Routine 1005 (Given - Provider: Jerri Sanchez RN) acetaminophen (TYLENOL) tablet 1,000 mg 1,000 mg, Oral, EVERY 8 HOURS SCHEDULED, First dose on Thu11/25/17 at 1545, Until Discontinued, Maximum dose of acetaminophen is 4000 mg from all sources in 24 hours., Routine 1900 (Given - Provider: Daksha Peralta RN - Comment: pt just arrived to [facility]) 0200 (Given - Provider: Brenda Flynn RN)1205 (Given - Provider: Daksha Peralta RN) ceFAZolin (ANCEF) 1g in dextrose 5% 50mL (COMPLETED) 1 g, Intravenous, EVERY 8 HOURS, 3 doses, First dose on Thu11/25/17 at 1500, Last dose on Thu11/26/17 at 0700, Administer over 30 Minutes, Adjust to 4 hours from intraoperative dose. * Beta-lactam based antibiotics (eg. Ampicillin, Cefazolin, Aztreonam) should be administered within 4 hours of the preceding intraoperative dose. * Vancomycin, Flouroquinolones, Clindamycin, Gentamicin, and Metronidazole should be administered within 8 hours of the preceding intraoperative dose., Recovery (Recovery-Hospital Unit), Indication for (Active or Suspected): Prophylaxis 1545 (New Bag - Provider: Shannan Garcia RN)1615 (Stopped - Provider: Shannan Garcia RN)2315 (New Bag - Provider: Brenda Flynn, JADEN)2345 (Stopped - Provider: Brenda Flynn, RN) 0622 (New Bag - Provider: Brenda Flynn, RN)0652 (Stopped - Provider: Daksha Peralta, JADEN) ceFAZolin (ANCEF) 2g in dextrose 5% 100 mL (COMPLETED) 2 g, Intravenous, EVERY 3 HOURS, 1 dose, First dose on Thu11/25/17 at 1015, Administer over 30 Minutes, Redose after 3 hours., Intra-Operative (Intra-Procedure), Indication for (Active or Suspected): Prophylaxis 1048 (Given - Provider: Marcio Stokes CRNA) clopidogrel (PLAVIX) tablet 75 mg 75 mg, Oral, DAILY, First dose on Thu11/25/17 at 1700, Until Discontinued, Routine 1900 (Given - Provider: Daksha Peralta, JADEN - Comment: pt just arrived to [facility]) dexamethasone (DECADRON) tablet 4 mg (COMPLETED) 4 mg, Oral, DAILY, 2 doses, First dose on Thu11/25/17 at 1545, Last dose on Thu11/26/17 at 0900, Routine 1827 (Given - Provider: Shannan Garcia RN) 0829 (Given - Provider: Daksha Peralta, JADEN) gabapentin (NEURONTIN) capsule 300 mg (COMPLETED) 300 mg, Oral, ONCE, 1 dose, On Thu11/25/17 at 1015, Administer on arrival in Same Day Program, Day of Surgery (Day of Procedure), Routine 1005 (Given - Provider: Jerri Sanchez RN) gabapentin (NEURONTIN) capsule 300 mg(Linked Group 1) 300 mg, Oral, NIGHTLY, First dose on Thu11/27/17 at 2100, Until Discontinued, Routine gabapentin (NEURONTIN) capsule 600 mg(Linked Group 1) 600 mg, Oral, NIGHTLY, 2 doses, First dose on Thu11/25/17 at 2100, Last dose on Thu11/26/17 at 2100, Routine 2041 (Given - Provider: Brenda Flynn RN) insulin lispro (HumaLOG) VIAL injection 1-4 Units(Linked Group 2) 1-4 Units, Subcutaneous, 3 TIMES DAILY BEFORE MEALS, First dose on Thu11/25/17 at 1630, Until Discontinued, CORRECTION BOLUS Sensitive to insulin [...] unless specifically told to do so., Routine 1620 (Given - Provider: Shannan Garcia RN) 0727 (Given - Provider: Daksha Peralta RN)1206 (Given - Provider: Daksha Peralta RN) levothyroxine (SYNTHROID) tablet 137 mcg 137 mcg, Oral, EVERY MORNING, First dose on Thu11/26/17 at 0600, Until Discontinued, Routine 06 (Given - Provid er: Brenda Flynn RN) magnesium oxide (MAG-OX) tablet 400 mg 400 mg, Oral, 2 TIMES DAILY, First dose on Thu11/25/17 at 2100, Until Discontinued, Routine 2041 (Given - Provider: Brenda Flynn, JADEN) 0828 (Given - Provider: Daksha Peralta RN) mycophenolate (CELLCEPT) capsule 250 mg 250 mg, Oral, 2 TIMES DAILY, First dose on Thu11/25/17 at 2000, Until Discontinued, DO NOT CRUSH OR OPEN Administer to patient on empty stomach (1 hour before or two hours after a meal)., Routine 2041 (Given - Provider: Brenda Flynn RN) 0622 (Given - Provider: Brenda Flynn RN) pantoprazole (PROTONIX) tablet 20 mg 20 mg, Oral, DAILY, First dose on Thu11/25/17 at 1545, Until Discontinued, DO NOT CRUSH OR OPEN 1545 (Not Given - Provider: Shannan Garcia RN - Reason: Patient/family refused) 0827 (Given - Provider: Daksha Peralta, JADEN) polyethylene glycol (MIRALAX) packet 17 g 17 g, Oral, 2 TIMES DAILY, First dose on Thu11/25/17 at 2100, Until Discontinued, Routine 2042 (Given - Provider: Brenda Flynn RN) 0827 (Given - Provider: Daksha Peralta RN) potassium phosphate (monobasic) (K-PHOS) tablet 500 mg 500 mg, Oral, 2 TIMES DAILY, First dose on Thu11/25/17 at 2100, Until Discontinued, Dissolve tablets in 6-8 oz of water; for best results, soak tablets in water for 2-5 minutes, then stir and give to patient., Routine 2040 (Given - Provider: Brenda Flynn RN) 0829 (Given - Provider: Daksha Peralta, JADEN) senna-docusate (PERICOLACE) 8.6-50 mg per tablet 2 tablet 2 tablet, Oral, 2 TIMES DAILY, First dose on Thu11/25/17 at 2100, Until Discontinued, Routine 2041 (Given - Provider: Brenda Flynn, JADEN) 0827 (Given - Provider: Daksha Perlata RN) sodium chloride 0.9 % flush 5 mL 5 mL, Intravenous, 2 TIMES DAILY, First dose on Thu11/25/17 at 2100, Until Discontinued, Recovery (Recovery-Hospital Unit), Routine 2042 (Given - Provider: Brenda Flynn RN) 0900 (Not Given - Provider: Daksha Peralta RN - Reason: See comment - Comment: recently flushed after ATB) tacrolimus (PROGRAF) capsule 1 mg(Linked Group 3) 1 mg, Oral, NIGHTLY, First dose on Thu11/25/17 at 2100, Until Discontinued, Routine 2040 (Given - Provider: Brenda Flynn RN) tacrolimus (PROGRAF) capsule 2 mg(Linked Group 3) 2 mg, Oral, DAILY AFTER BREAKFAST, First dose on Thu11/26/17 at 0900, Until Discontinued, Routine 08 (Given - Provid er: Daksha Peralta RN) tamsulosin (FLOMAX) ER capsule 0.4 mg 0.4 mg, Oral, NIGHTLY, First dose on Thu11/25/17 at 2100, Until Discontinued, DO NOT CRUSH OR OPEN, Routine 2040 (Given - Provider: Brenda Flynn RN) tranexamic acid (CYKLOKAPRON) 1,463 mg in sodium chloride 0.9% 114.63 mL (COMPLETED) 1,463 mg (rounded from 1,462.5 mg = 15 mg/kg/dose ? 97.5 kg), Intravenous, ONCE, 1 dose, On Thu11/25/17 at 1015, Administer over 30 Minutes, Day of Surgery (Day of Procedure) 1048 (New Bag - Provider: Marcio Stokes CRNA)1200 (Rate/Dose Change - Provider: Marcio Stokes CRNA - Comment: given over 30 min; per request of surgeon based on bleeding concerns) Continuous Medication Order 11/24/2017 11/25/2017 11/26/2017 lactated Ringers infusion 1,000 mL (CANCELED) 1,000 mL, at 100 mL/hr, Intravenous, CONTINUOUS, Starting on Thu11/25/17 at 1015, Until Thu11/25/17 at 1519, Day of Surgery (Day of Procedure) 1015 (New Bag - Provider: Jerri Sanchez RN)1048 (Anesthesia Volume Adjustment - Provider: Marcio Stokes CRNA)1134 (Anesthesia Volume Adjustment - Provider: Marcio Stokes CRNA)1208 (Anesthesia Volume Adjustment - Provider: Marcio Stokes CRNA) sodium chloride 0.9% infusion 75 mL/hr, Intravenous, CONTINUOUS, Starting on Thu11/25/17 at 1315, Until Thu11/26/17 at 1714, Recovery (Recovery-Hospital Unit) 1308 (New Bag - Provider: Shannan Garcia, RN)2006 (Stopped - Provider: Brenda Flynn RN) PRN Medication Order 11/24/2017 11/25/2017 11/26/2017 bacitracin injection (CANCELED) ONCE PRN, Starting on Thu11/25/17 at 1205, Until Laura 11/26/17 at 1714, Intra-Operative (Intra-Procedure), Routine 1205 (Given - Provider: Breezy Dale MD) bisacodyl (DULCOLAX) EC tablet 10 mg 10 mg, Oral, 2 TIMES DAILY PRN, Starting on Thu11/25/17 at 1519, Until Laura 11/26/17 at 1714, Constipation, DO NOT CRUSH OR OPEN Administer if needed per patient's routine or if no bowel movement within 48 hours to achieve: (1) One bowel movement every 48 hours, AND (2) without straining. If multiple PRN bowel medications ordered, start with lactulose, then oral bisacodyl, then bisacodyl suppository. Multiple medications may be given concomitantly for constipation., Routine bisacodyl (DULCOLAX) suppository 10 mg 10 mg, Rectal, DAILY PRN, Starting on Thu11/25/17 at 1519, Until Laura 11/26/17 at 1714, Constipation, Administer if needed per patient's routine or if no bowel movement within 48 hours to achieve: (1) One bowel movement every 48 hours, AND (2) without straining. If multiple PRN bowel medications ordered, start with lactulose, then oral bisacodyl, then bisacodyl suppository. Multiple medications may be given concomitantly for constipation., Routine BUpivacaine (PF) (MARCAINE) 0.25 % (2.5 mg/mL) injection (CANCELED) ONCE PRN, Starting on Thu11/25/17 at 1220, Until Laura 11/26/17 at 1714, Intra-Operative (Intra-Procedure), Routine 1220 (Given - Provider: Breezy Dale MD) BUpivacaine-EPINEPHrine 0.25 %-1:200,000 injection (CANCELED) ONCE PRN, Starting on Thu11/25/17 at 1207, Until Laura 11/26/17 at 1714, Intra-Operative (Intra-Procedure), Routine 1207 (Given - Provider: Breezy Dale MD - Comment: 0.25% bupivicaine and epinephrine 1:200,000 mixed with 30 mg ketorolac and 50 mcg clonidine) cloNIDine injection (CANCELED) ONCE PRN, Starting on Thu11/25/17 at 1210, Until Laura 11/26/17 at 1714, Intra-Operative (Intra-Procedure), Routine 1210 (Given - Provider: Breezy Dale MD - Comment: 0.25% bupivicaine and epinephrine 1:200,000 mixed with 30 mg ketorolac and 50 mcg clonidine) dextrose 50% IV syringe 25-50 mL(Linked Group 4) 25-50 mL (12.5-25 g), Intravenous, EVERY 1 HOUR PRN, Starting on Thu11/25/17 at 1519, Until Laura 11/26/17 at 1714, Low blood sugar, For BG 50-70: 120 mL Juice or Regular (not diet) soda OR 12.5 gram (25 mL) Dextrose 50% IV OR, if no IV access, 1 mg Glucagon IM. Recheck BG in 30 minutes. May repeat juice, dextrose or glucagon once per episode For BG less than 50: 240 mL Juice or Regular (not diet) soda OR 25 grams (50 mL) Dextrose 50% IV OR, if no IV access, 1 mg Glucagon IM. Recheck BG in 30 minutes. May repeat juice, dextrose, or glucagon once per episode. To avoid extravasation, push Dextrose 50% SLOWLY (3 mL over 1 minute) in a patent, running IV, preferably a central line. For persistent hypoglycemia, consider longer-acting treatment for the duration of the active insulin., Routine fentaNYL (PF) 50mcg/mL injection (CANCELED) 25-50 mcg, Intravenous, EVERY 5 MIN PRN, Starting on Thu11/25/17 at 0946, Until Thu11/25/17 at 1519, nerve block, Day of Surgery (Day of Procedure), Routine 1014 (Given - Provider: Jerri Sanchez RN) glucagon (human recombinant) injection SolR 1 mg(Linked Group 4) 1 mg, Intramuscular, EVERY 1 HOUR PRN, Starting on Thu11/25/17 at 1519, Until Laura 11/26/17 at 1714, Low blood sugar, For BG 50-70: 120 mL Juice or Regular (not diet) soda OR 12.5 gram (25 mL) Dextrose 50% IV OR, if no IV access, 1 mg Glucagon IM. Recheck BG in 30 minutes. May repeat juice, dextrose or glucagon once per episode For BG less than 50: 240 mL Juice or Regular (not diet) soda OR 25 grams (50 mL) Dextrose 50% IV OR, if no IV access, 1 mg Glucagon IM. Recheck BG in 30 minutes. May repeat juice, dextrose, or glucagon once per episode. To avoid extravasation, push Dextrose 50% SLOWLY (3 mL over 1 minute) in a patent, running IV, preferably a central line. For persistent hypoglycemia, consider longer-acting treatment for the duration of the active insulin., Routine ketorolac (TORADOL) injection (CANCELED) ONCE PRN, Starting on Thu11/25/17 at 1210, Until Laura 11/26/17 at 1714, Intra-Operative (Intra-Procedure), Routine 1210 (Given - Provider: Breezy Dale MD - Comment: 0.25% bupivicaine and epinephrine 1:200,000 mixed with 30 mg ketorolac and 50 mcg clonidine) lactulose (CHRONULAC) 20 gram/30 mL oral solution 20-40 g 20-40 g (30-60 mL), Oral, DAILY PRN, Starting on Thu11/25/17 at 1519, Until Thu11/26/17 at 1714, Constipation, Administer if needed per patient's routine or if no bowel movement within 48 hours to achieve: (1) One bowel movement every 48 hours, AND (2) without straining. If multiple PRN bowel medications ordered, start with lactulose, then oral bisacodyl, then bisacodyl suppository. Multiple medications may be given concomitantly for constipation., Routine lidocaine (XYLOCAINE) 10 mg/mL (1 %) injection 3 mg 3 mg (0.3 mL), Subcutaneous, ONCE PRN, 1 dose, Starting on Thu11/25/17 at 1847, Until Laura 11/26/17 at 1714, for discomfort with PIV insertion, Recovery (Recovery-Hospital Unit), Routine midazolam (PF) (VERSED) 1 mg/mL injection 1-2 mg (CANCELED) 1-2 mg, Intravenous, EVERY 5 MIN PRN, Starting on Thu11/25/17 at 0946, Until Thu11/25/17 at 1519, Sleep, block sedation. 1mg for mild anxiety, 2mg for moderate anxiety, Day of Surgery (Day of Procedure), Routine 1011 (Given - Provider: Jerri Sanchez, JADEN) ondansetron (ZOFRAN) injection 4 mg(Linked Group 5) 4 mg, Intravenous, EVERY 8 HOURS PRN, Starting on Thu11/25/17 at 1847, Until Laura 11/26/17 at 1714, Nausea, May repeat times one in 30 minutes if ineffective. If multiple antiemetics are ordered, use ondanstron first, Recovery (Recovery-Hospital Unit) ondansetron (ZOFRAN) tablet 4 mg(Linked Group 5) 4 mg, Oral, EVERY 8 HOURS PRN, Starting on Thu11/25/17 at 1847, Until Laura 11/26/17 at 1714, Nausea, Vomiting, If multiple antiemetics are ordered, use ondansetron first. PO Preferred. If patient unable to take PO, may give IV if ordered. May repeat times one in 45 minutes if ineffective., Recovery (Recovery-Hospital Unit), Routine oxyCODONE (ROXICODONE) immediate release tablet 5-15 mg 5-15 mg, Oral, EVERY 4 HOURS PRN, Starting on Thu11/25/17 at 1302, Until Laura 11/26/17 at 1714, Pain, Give 5 mg for mild pain (1-3), 10 mg for moderate pain (4-6) or 15 mg for severe pain (7-10) May give an additional 5 mg in 30 minutes ONCE if pain not relieved., Routine 1527 (Given - Provider: Shannan Garcia RN)2042 (Given - Provider: Brenda Flynn, JADEN) 0121 (Given - Provider: Brenda Flynn, JADEN)0736 (Given - Provider: Olga Astorga RN) sodium chloride 0.9 % flush 5-20 mL 5-20 mL, Intravenous, EVERY 1 MIN PRN, Starting on Thu11/25/17 at 1847, Until Thu11/26/17 at 1714, flush, Flush pertains to all indwelling lines. Flush per protocol found in the job aid using the link provided on this medication record., Recovery (Recovery-Hospital Unit), Routine Linked Groups Order Group 1: gabapentin (NEURONTIN) capsule 600 mgJump to med 600 mg, Oral, NIGHTLY, 2 doses, First dose on Thu11/25/17 at 2100, Last dose on Thu11/26/17 at 2100, Routine Followed by gabapentin (NEURONTIN) capsule 300 mgJump to med 300 mg, Oral, NIGHTLY, First dose on Thu11/27/17 at 2100, Until Discontinued, Routine Group 2: POCT Fingerstick Glucose (CANCELED) Routine, 4 TIMES DAILY BEFORE MEALS & AT BEDTIME, First occurrence on Thu11/25/17 at 1700, Until Specified, Consider choosing FOUR TIMES A DAY BEFORE MEALS AND AT BEDTIME as frequency for: Patients who have good hypoglycemia awareness: -Patients who are eating meals during the day and sleeping at night -Patient who are otherwise stable And insulin lispro (HumaLOG) VIAL injection 1-4 UnitsJump to med 1-4 Units, Subcutaneous, 3 TIMES DAILY BEFORE MEALS, First dose on Thu11/25/17 at 1630, Until Discontinued, CORRECTION BOLUS Sensitive to insulin [...] specifically told to do so., Routine Group 3: tacrolimus (PROGRAF) capsule 2 mgJump to med 2 mg, Oral, DAILY AFTER BREAKFAST, First dose on Thu11/26/17 at 0900, Until Discontinued, Routine And tacrolimus (PROGRAF) capsule 1 mgJump to med 1 mg, Oral, NIGHTLY, First dose on Thu11/25/17 at 2100, Until Discontinued, Routine Group 4: dextrose 50% IV syringe 25-50 mLJump to med 25-50 mL (12.5-25 g), Intravenous, EVERY 1 HOUR PRN, Starting on Thu11/25/17 at 1519, Until Laura 11/26/17 at 1714, Low blood sugar, For BG 50-70: 120 mL Juice or Regular (not diet) soda OR 12.5 gram (25 mL) Dextrose 50% IV OR, if no IV access, 1 mg Glucagon IM. Recheck BG in 30 minutes. May repeat juice, dextrose or glucagon once per episode For BG less than 50: 240 mL Juice or Regular (not diet) soda OR 25 grams (50 mL) Dextrose 50% IV OR, if no IV access, 1 mg Glucagon IM. Recheck BG in 30 minutes. May repeat juice, dextrose, or glucagon once per episode. To avoid extravasation, push Dextrose 50% SLOWLY (3 mL over 1 minute) in a patent, running IV, preferably a central line. For persistent hypoglycemia, consider longer-acting treatment for the duration of the active insulin., Routine Or glucagon (human recombinant) injection SolR 1 mgJump to med 1 mg, Intramuscular, EVERY 1 HOUR PRN, Starting on Thu11/25/17 at 1519, Until Laura 11/26/17 at 1714, Low blood sugar, For BG 50-70: 120 mL Juice or Regular (not diet) soda OR 12.5 gram (25 mL) Dextrose 50% IV OR, if no IV access, 1 mg Glucagon IM. Recheck BG in 30 minutes. May repeat juice, dextrose or glucagon once per episode For BG less than 50: 240 mL Juice or Regular (not diet) soda OR 25 grams (50 mL) Dextrose 50% IV OR, if no IV access, 1 mg Glucagon IM. Recheck BG in 30 minutes. May repeat juice, dextrose, or glucagon once per episode. To avoid extravasation, push Dextrose 50% SLOWLY (3 mL over 1 minute) in a patent, running IV, preferably a central line. For persistent hypoglycemia, consider longer-acting treatment for the duration of the active insulin., Routine Group 5: ondansetron (ZOFRAN) tablet 4 mgJump to med 4 mg, Oral, EVERY 8 HOURS PRN, Starting on Thu11/25/17 at 1847, Until Laura 11/26/17 at 1714, Nausea, Vomiting, If multiple antiemetics are ordered, use ondansetron first. PO Preferred. If patient unable to take PO, may give IV if ordered. May repeat times one in 45 minutes if ineffective., Recovery (Recovery-Hospital Unit), Routine Or ondansetron (ZOFRAN) injection 4 mgJump to med 4 mg, Intravenous, EVERY 8 HOURS PRN, Starting on Thu11/25/17 at 1847, Until Laura 11/26/17 at 1714, Nausea, May repeat times one in 30 minutes if ineffective. If multiple antiemetics are ordered, use ondanstron first, Recovery (Recovery- Hospital Unit) documented in this encounter Care Teams Flat Sorter Processor Relationship Specialty Start Date End Date Urbano Denis DO [address] [place] [address] [address] [facility] [address] [place] [address] PCP - General 09/03/12 03/17/22 Ruchi Valles RN Nurse Clinic Transplant Surgery 07/30/15 documented as of this encounter
--- OUTSIDE RECORDS SUMMARY | 2024-02-14 11:25 | XMS_ITS | Encounter Summary ---
Author Organization [facility]ly [facility] [place] [address] Care Team Providers Care Mixer Operator Vacuum Pan Salt Name Role Phone Urbano Denis DO Primary Care Provider Encounter Details Date Type Department Care Team (Late st Contact Info) Description 11/04/2017 12:20 PM EDT [place] [id number] Social History Tobacco Use Types Packs/Day Years [...] Taken Comments Blood Pressure - - Pulse 63 11/04/2017 12:11 PM EDT Temperature - - Respiratory Rate - - Oxygen Saturation 97% 11/04/2017 12:11 PM EDT Inhaled Oxygen Concentration - - Weight 103.4 kg (228 lb) 11/04/2017 12:11 PM EDT Height 177.8 cm (5' 10) 11/04/2017 12:11 PM EDT Body Mass Index 32.71 11/04/2017 12:11 PM EDT documented in this encounter Progress Notes * Tamela Prasad RN - 11/04/2017 12:20 PM EDT PAT questionnaire reviewed with patient and Mara while in Pre Admission testing. Previous anesthesia in past with no complications. Has had kidney transplant. Has fistula in Left arm. Pre-operative instruction booklet reviewed. Patient verbalizes a good understanding of all information reviewed. PLAN: Testing: Blood work and EKG. Special medication instructions: Plavix per MD. Procedure date: 11-25-[address] Dale documented in this encounter Plan of Treatment Upcoming Encounters Date Type Department Care Team (Late st Contact Info) Description 04/15/2024 10:00 AM EDT Hospital Encounter Non[place] [phone] Arrived documented as of this [...] on filedocumented in this encounter Care Teams Mixer Operator Vacuum Pan Salt Relationship Specialty Start Date End Date Urbano Denis DO [address] [place] [address] [place] [address] PCP - General 09/03/12 03/17/22 Ruchi Valles RN Nurse Clinic Transplant Surgery 07/30/15 documented as of this encounter
--- OUTSIDE RECORDS SUMMARY | 2024-02-14 11:25 | XMS_ITS | Encounter Summary ---
Author Organization [facility] [place] [address] Care Team Providers Care Audio Engineer Name Role Phone Adeel Urbano KIRBY Primary Care Provider Encounter Details Date Type Department Care Team (Late st Contact Info) Description 10/05/2017 Orders [place] [address] Breezy Dale MD [facility] [place] [address] Right knee pain, unspecified chronicity Social History Tobacco Use Types Packs/Day Years [...] AM EDT Hospital Encounter [place] [address] Arrived documented as of this encounter Goals Goal Patient Goal Type Associated Problems Recent Progress Patient-Stated? Author [facility] Medication Compliance and Understanding Patient Facing Action Plan On track( 017 10:41 AM EDT) No Blayne, Selena M, [facility] Note: Patient Goal: Clear hepatitis C Timeframe to meet goal: within 12 weeks of therapy documented as of this encounter Visit Diagnoses Diagnosis Right knee pain, unspecified chronicity documented in this encounter Care Teams Audio Engineer Relationship Specialty Start Date End Date Urbano Denis DO [address] [place] [address] PCP - General 09/03/12 03/17/22 Ruchi Valles RN Nurse Clinic Transplant Surgery 07/30/15 documented as of this encounter
--- OUTSIDE RECORDS SUMMARY | 2024-02-14 11:25 | XMS_ITS | Encounter Summary ---
Author Organization [facility] [address] Care Team Providers Care Oven Operator Name Role Phone Urbano Denis DO Primary Care Provider [phone] Reason for Referral * Physical Therapy (Routine) - Specialty Diagnoses / Procedures Referred By Humberto flor Referred To Contact Physical Therapy Diagnoses Status post right knee replacement Breezy Dale MD [facility] [place] [address] Referral ID Status Reason Start Date Expiration Date V isits Requested Visits Authorized [id number] Evaluate and Treat 02/01/2018 07/31/2018 12 12 Reason for Visit * Reason Comments Follow Up Surgery Right TKA DOS 8 Encounter Details Date Type Department Care Team (Late st Contact Info) Description 02/01/2018 2:40 PM EDT Office [place] [address] Breezy Dale MD [facility] [place] [address] Status post right knee replacement; S/P R TKA 11/25/17 Dr. Dale Social [...] Sign Reading Time Taken Comments Blood Pressure 159/85 02/01/2018 2:08 PM EDT Pulse 67 02/01/2018 2:08 PM EDT Temperature - - Respiratory Rate - - Oxygen Saturation - - Inhaled Oxygen Concentration - - Weight 97.5 kg (215 lb) 02/01/2018 2:08 PM EDT Height 177.8 cm (5' 10) 02/01/2018 2:08 PM EDT Body Mass Index 30.85 02/01/2018 2:08 PM EDT documented in this encounter Progress Notes * Breezy Dale MD - 02/01/2018 2:40 PM EDT Images from the original note were not included. Department of Orthopaedics Division of Adult Joint Reconstructive Surgery February 01, 2018 I had the pleasure of evaluating Cody Bolden in clinic in conjunction with one of my associate providers. In brief Mr. Bolden is a 67 y.o. year old male status post renal transplant who is now about 9 weeks out from a total knee replacement. He was seen several weeks ago for scab at the inferior aspectof his incision. He presents today in follow-up. He also has struggled with motion and lacks about 10?? shy of full extension. He stopped taking his pain medication and is not moving his knee as muchas he feels like he could because of the pain. I had a lengthy discussion with him about his range of motion and how if he does not push it for the next several weeks his knee may get permanently stuck where it is. I outlined how extension is 1 the hardest things to get back in the importance of doing his physical therapy. I prescribed him pain medication to help with managing his pain around thetime of physical therapy and asked that he increase his physical therapy sessions up to 5 times a week. I like to see him back in 3-4 weeks to reassess his motion. In regards to his incision I removed the scab from the distal aspect of the incision and found spitting suture. This was removed and a sterile Mepilex dressing was applied. The remaining incision appears to be benign and I do not thinkthere is any evidence of infection. We see him back in 3-4 weeks if his knee is still stiff we could consider manipulation I explained to him how gaining extension with manipulation can be quite challenging and needed him to really work hard over the next few weeks. Due to his history of a renal transplant h and poor wound healing I also sent him to the lab to check inflammatory markers although my suspicion for infection is quite low. He was comfortable to plan. All questions were answered. Breezy Dale MD, MS Chief, Division of Adult Reconstructive Control SupervisorShipping And Receiving Specialist of Orthopaedics Department of Orthopaedics [facility] [phone] [email or web address] * Anatoly Richards PA - 02/01/2018 2:40 PM EDT Arthroplasty/Orthopaedic History: 1. Right TKA. Dr. Dale. 11/25/2017. HPI: Cody Bolden is a very pleasant 67 y.o. year-old male and is now 8 weeks post right totalknee replacement The patient has been doing ok. Pain is not well controlled. No fevers, chills, nausea, vomiting, or symptoms of infection. Cody has been ambulating with a cane and working with PT.He is not taking narcotic pain medicine. He is concerned about his ROM and here for a wound check of the distal incision ROS: Denies: fever, chills, night sweats, nausea, or vomiting BP 159/85 (BP Location (NBP): Right arm, Patient Position: Sitting, BP Cuff Sizes: Large Adult (32-43 cm)) Pulse 67 Ht 177.8 cm (5' 10) Wt 97.5 kg (215 lb) BMI 30.85 kg/m2 Physical Exam: Well-appearing male in no acute distress. Alert and Oriented x 3 and answers all questions appropriately. The incision is well healed for the most part except at the very distal end there is some swelling and drainage when squeezed there is no erythema. Post Op Right Knee Exam: Knee ROM: Extension:10 Flexion: 95 Alignment: 0-4 degrees Varus Stability: A/P Translation <5mm. Varus <5mm Valgus <5mm Extension La degrees or less Patella Tracking: Normal Pulses Palpable: Right PT: Yes Right DP:Yes Motor/Sensory: Distal Motor: Normal Distal Sensory: Normal Quadriceps Strength: 4 Questionnaire Responses: [facility] Surgical Postop Visit 02/01/2018 PROMIS-10 General Health Good PROMIS-10 Quality of Life Good PROMIS-10 Physical Health Good PROMIS-10 Mental Health Good PROMIS-10 Social Activity Good PROMIS-10 Everyday Activities Moderately PROMIS-10 Pain 2 PROMIS-10 Fatigue Moderate PROMIS-10 Social Roles Good PROMIS-10 Anxious or Depressed Rarely PROMIS PHYSICAL HEALTH SCORE 42.3 PROMIS MENTAL HEALTH SCORE 45.8 KOOS JR Scores 42.28 Problems with surgical incision/wound after surgery Yes Problems with incision Pain, Redness, Swelling, Discharge or drainage Prescribed antibiotics No Caregiver after your surgical incision problem Relative/partner/friend Gone to ER since knee surgery No Admitted to hospital since recent ortho surgery No Additional surgery on same body part No TKA Grade 3 Pain in other KNEE None Back pain at this moment None Satisfaction with Treatment Somewhat dissatisfied Choose Same Treatment Again Completely uncertain Orthopeadics [facility] Response 02/01/2018 KOOS JR Scores 42.28 Spine [facility] Response 02/01/2018 KOOS JR Scores 42.28 ASSESSMENT/PLAN: Mr. Bolden is a 67 y.o. year old male status post right total knee replacement. Postoperative course complicated by suture abscess distal incision and arthrofibrosis. Continue weightbearing as tolerated and working on range of motion. Debrided the suture abscess today and placed a mepalex on the wound. Prescribed oxycodone for PT to allow for ROM. We will see him back in 3-4 weeks for repeat examination. No X-rays will be needed at that time. Patient may return to normal activities as his pain and function allow. Patient was seen and evaluated with Dr Dale All questions were answered. Signed: MCKINLEY LANDAVERDE 02/03/2018 documented in this encounter Plan of Treatment Upcoming Encounters Date Type Department Care Team (Late st Contact Info) Description 04/15/2024 10:00 AM EDT Hospital Encounter Non[place] [address] Arrived Scheduled Referrals Name Type Priority Associated Diagnoses Orde r Schedule Referral to Physical Therapy Outpatient Referral Routine Status post right knee replacement Ordered: 02/01/2018 documented as of this encounter Goals Goal [...] Procedure Name Priority Date/Time Associated Diagnosis Comments CRP, ACUTE INFLAMMATION STAT 02/01/2018 3:41 PM EDT Status post right knee replacement HEMOGRAM STAT 02/01/2018 3:41 PM EDT Status post right knee replacement DIFFERENTIAL, AUTOMATED STAT 02/01/2018 3:41 PM EDT Status post right knee replacement SEDIMENTATION RATE STAT 02/01/2018 3: 41 PM EDT Status post right knee replacement CBC (WITH DIFF) STAT 02/01/2018 3:41 PM EDT Status post right knee replacement documented in this encounter Results * Differential, Automated (02/01/2018 3:41 PM EDT) Neutrophil % 66.3 % [facility] Neutrophil Absolute 5.77 1.70 - 6.10 x10(3)/[facility] Lymph % 19.9 % [facility] Lymphocytes Abs 1.7 0.9 - 3.2 x10(3)/[facility] Monocyte % 9.6 % [facility] Monocyte Abs 0.8 0.3 - 0.9 x10(3)/[facility] Eos % 3.2 % [facility] Eosinophils Abs 0.3 0.0 - 0.4 x10(3)/[facility] Basophil % 0.7 % [facility] Baso Absolute 0.1 0.0 - 0.1 x10(3)/[facility] Immature Gran % 0.30 % [facility] Comment: Immature granulocytes(IG's)percentage and absolute count will include metamyelocytes, myelocytes, and promyelocytes. Blood smears from CBCs yielding IG's will be scanned manually for concordance. If this scan disagrees with the automated IG or if promyelocytes are noted, a manual differential will be performed. Immature Gran Absolute 0.03 0.00 - 0.04 x10(3)/[facility] Blood specimen (specimen) 02/01/2018 3:41 PM EDT 02/01/2018 3:48 PM EDT Narrative Resulting Agency Comment Spec In Lab Breezy Dale MD HEMATOLOGY ORDERABL ES [facility] [place] [address] * Hemogram (02/01/2018 3:41 PM EDT) White Blood Cell 8.7 4.0 - 9.5 x10(3)/[facility] Red Blood Cell 5.16 4.58 - 5.54 x10(6)/[facility] Hemoglobin 15.7 13.7 - 16.5 gm/dL [facility] Hematocrit 45.4 40.5 - 48.5 % [facility] Mean Cell Volume 88.0 82.9 - 93.1 fL [facility] Mean Cell Hemoglobin 30.4 27.5 - 32.1 pg [facility] Mean Cell Hemoglobin Concentration 34.6 32.0 - 35.7 gm/dL [facility] Platelet 284 145 - 357 x10(3)/[facility] RDW Standard Deviation 44.6 36.0 - 45.0 fL [facility] RDW coefficient of variation 13.8 11.4 - 13.8 % [facility] Mean Platelet Volume 9.2 7.6 - 12.9 fL [facility] NRBC% auto 0.0 % [facility] NRBC Absolute 0.000 0.000 - 0.000 x10(3)/mcL [facility] Blood specimen (specimen) 02/01/2018 3:41 PM EDT 02/01/2018 3:48 PM EDT Narrative Resulting Agency Comment Spec In Lab Breezy Dale MD HEMATOLOGY ORDERABL ES Performing Organization Address [facility] [place] [address] * (ABNORMAL) Sedimentation rate (02/01/2018 3:41 PM EDT) Sedimentation Rate Automated 25(H) 0 - 15 mm/hr [facility] Blood specimen (specimen) 02/01/2018 3:41 PM EDT 02/01/2018 3:48 PM EDT Narrative Resulting Agency Comment Spec In Lab Breezy Dale MD HEMATOLOGY ORDERABL ES Performing Organization Address [facility] [place] [address] * (ABNORMAL) CRP, acute inflammation (02/01/2018 3:41 PM EDT) C-Reactive Protein 8.5(H) <=4.9 mg/L [facility] Blood specimen (specimen) 02/01/2018 3:41 PM EDT 02/01/2018 3:48 PM EDT Narrative Resulting Agency Comment Spec In Lab Breezy Dale MD CHEMISTRY ORDERABLE S Performing Organization Address [facility] [place] [address] documented in this encounter Visit Diagnoses Diagnosis Status post right knee replacement S/P R TKA 11/25/17 Dr. Dale Knee joint replacement by other means documented in this encounter Care Teams Oven Operator Relationship Specialty Start Date End Date Urbano Denis DO [address] [place] [address] PCP - General 09/03/12 03/17/22 Ruchi Valles RN Nurse Clinic Transplant Surgery 07/30/15 documented as of this encounter
--- OUTSIDE RECORDS SUMMARY | 2024-02-14 11:25 | XMS_ITS | Encounter Summary ---
Author Organization [facility] [place] [address] Care Team Providers Care User Support Specialist Name Role Phone AdeelUrbano toscano Primary Care Provider Encounter Details Date Type Department Care Team (Late st Contact Info) Description 12/17/2017 Refill [place] [id number] Sonia Mota RN S/P R TKA 11/25/17 [...] Telephone Encounter - Sonia Mota RN - 12/17/2017 2:41 PM EDT Narcotic pain medication refill request Person calling for request: Cody Bolden Mailing address: [place] [address] Surgeon: Dr. Dale Case: right total knee replacement DOS: 11/25/2017 Learning Needs Assessment done within 12 months (no change identified): Yes Requested medication: oxycodone 5mg Last refill: 12/04/2017. Take 1 tablet every 4 hours as needed, #50, 8 left Patient is taking medication: 1 every 4 hours. He sometimes needs 2 at a time. He is also taking tylenol and icing appropriately. Assessment: increased pain since starting PT and increasing activities. No issues with bowels. Patient is requesting the prescription be sent [place] [facility] [place] and then have the medication mailed. Last appointment: 11/25/2017 Future appointment: 01/04/2018 Last narcotic query: 12/17/2017 documented in this encounter Plan of Treatment Upcoming Encounters Date Type Department Care Team (Late st Contact Info) Description 04/15/2024 10:00 AM EDT Hospital Encounter [place] [address] Arrived documented as of this encounter Goals Goal Patient Goal Type Associated Problems Recent Progress Patient-Stated? Author [facility] Medication Compliance and Understanding Patient Facing Action Plan On track( 017 10:41 AM EDT) Selena Scott, [facility] Note: Patient Goal: Clear hepatitis C Timeframe to meet goal: within 12 weeks of therapy documented as of this encounter Visit Diagnoses Diagnosis S/P R TKA 11/25/17 Dr. Dale Knee joint replacement by other means documented in this encounter Care Teams User Support Specialist Relationship Specialty Start Date End Date Urbano Denis DO [address] [place] [address] PCP - General 09/03/12 03/17/22 Ruchi Valles RN Nurse Clinic Transplant Surgery 07/30/15 documented as of this encounter
--- OUTSIDE RECORDS SUMMARY | 2024-02-14 11:25 | XMS_ITS | Encounter Summary ---
Author Organization [facility] Address [facility] [place] [address] Care Team Providers Care Securities Compliance Examiner Name Role Phone Adeel Urbano KIRBY Primary Care Provider [phone] Encounter Details Date Type Department Care Team (Latest Contact Info) Description 06/12/2018 2:52 PM EST - 06/12/2018 11:59 PM EST Hospital Encounter [place] [address] Tal Eagle MD [facility] [place] [address] Discharge Disposition: Home Social History Tobacco Use [...] 90 days. 360 tablet 1 06/07/2018 11/15/2018 oxyCODONE (ROXICODONE) 5 mg TabletIndications:Pre sence of right artificial knee joint Take 1 tablet by mouth every 4 hours as needed for Pain. 40 tablet 02/01/2018 06/18/2018 calciTRIol (ROCALTROL) 0.5 mcg Capsule Take 0.5 [...] EDT Hospital Encounter Non-Invasive [place] [address] Arrived documented as of this encounter Goals Goal Patient Goal Type Associated Problems Recent Progress Patient-Stated? Author [facility] Medication Compliance and Understanding Patient Facing Action Plan On track( 017 10:41 AM EDT) Selena Scott [facility] Note: Patient Goal: Clear hepatitis C Timeframe to meet goal: within 12 weeks of therapy documented as of this encounter Procedures Procedure Name Priority Date/Time Associated Diagnosis Comments FILM LIBRARY STORAGE ONLY CT ABDOMEN AND PELVIS Routine 06/12/2018 2:52 PM EST documented in this encounter Results * Film Library- Storage Only CT Abdomen & Pelvis (06/12/2018 2:52 PM EST) Narrative MICHELINE - 06/12/2018 2:52 PM EST This exam is for storage only and is auto-finalizing. Tal Eagle MD IMG FILM LIBRARY ORDERABLES [place], [place] documented in this encounter Visit Diagnoses Not on filedocumented in this encounter Care Teams Securities Compliance Examiner Relationship Specialty Start Date End Date Urbano Denis DO [address] [place] [address] [address] [place] [address] PCP - General 09/03/12 03/17/22 Ruchi Valles RN Nurse Clinic Transplant Surgery 07/30/15 documented as of this encounter
--- OUTSIDE RECORDS SUMMARY | 2024-02-14 11:25 | XMS_ITS | Encounter Summary ---
[place] [address] Care Team Providers Care Child Welfare Counselor Name Role Phone AdeelUrbano boland Primary Care Provider [phone] Reason for Visit * Reason Onset Date Comments Medication Refill 06/07/2018 Encounter Details Date Type Department Care Team (Late st Contact Info) Description 06/07/2018 Refill [place] [address] Julia Farris RN Social History Tobacco Use Types Packs/Day [...] encounter Miscellaneous Notes * Telephone Encounter - Julia Lewis RN - 06/07/2018 9:39 AM EST Spoke with Mara. She reports Yash is out of Magnesium Gluconate 1000mg BID. She would like it filled at [facility] and mailed to them like they have for their other medications. Script sent and [facility] Pharm[facility] called to confirm shipping. documented in this encounter Plan of Treatment Upcoming Encounters Date Type Department Care Team (Late st Contact Info) Description 04/15/2024 10:00 AM EDT Hospital Encounter Non-Invasive [place] [address] Arrived documented as of this encounter Goals [...] filedocumented in this encounter Care Teams Child Welfare Counselor Relationship Specialty Start Date End Date Urbano Denis DO [address] [place] [address] PCP - General 09/03/12 03/17/22 Ruchi Valles RN Nurse Clinic Transplant Surgery 07/30/15 documented as of this encounter
--- OUTSIDE RECORDS SUMMARY | 2024-02-14 11:25 | XMS_ITS | Encounter Summary ---
Author Organization [facility] [place] [address] Care Team Providers Care Leach Runner Name Role Phone Adeel Urbano KIRBY Primary Care Provider [phone] Reason for Visit * Reason Comments Medication Refill Encounter Details Date Type Department Care Team (Late st Contact Info) Description 12/21/2017 Refill [place] [address] Tal Eagle MD [facility] [place] [address] Social History Tobacco Use Types Packs/Day Years [...] AM EDT Hospital Encounter Non-Invasive [place] [address] Arrived documented as of this encounter Goals Goal Patient Goal Type Associated Problems Recent Progress Patient-Stated? Author [facility] Medication Compliance and Understanding Patient Facing Action Plan On track(03/21/2 017 10:41 AM EDT) No Blayne, Selena M, [facility] Note: Patient Goal: Clear hepatitis C Timeframe to meet goal: within 12 weeks of therapy documented as of this encounter Visit Diagnoses Not on filedocumented in this encounter Care Teams Leach Runner Relationship Specialty Start Date End Date Urbano Denis DO [address] [place] [address] PCP - General 09/03/12 03/17/22 Ruchi Valles RN Nurse Clinic Transplant Surgery 07/30/15 documented as of this encounter
--- OUTSIDE RECORDS SUMMARY | 2024-02-14 11:25 | XMS_ITS | Encounter Summary ---
[facility] Organization [facility] [place] [address] Care Team Providers Care Business Writer Name Role Phone AdeelUrbano Primary Care Provider [phone] Reason for Visit * Auth/Cert Specialty Diagnoses / Procedures Referred By Humberto t Referred To Contact Diagnoses Presence of right artificial knee joint Osteoarthritis of the knee Procedures PRO TOTAL KNEE ARTHROPLASTY TOTAL KNEE ARTHROPLASTY (WRVU 20.72) MODIFIER, ATTUNE CURVED FIXED PLATFORM, DEPUY Referral ID Status Reason Start Date Expiration Date Visits Re quested Visits Authorized [id number] 1 1 Encounter Details Date Type Department Care Team (Latest Contact Info) Description 11/25/2017 9:14 AM EDT - 11/26/2017 3:14 PM EDT Hospital Encounter [place] [address] Breezy Dale MD [facility] [place] [address] Pain of right lower extremity; Debility; Primary osteoarthritis of right knee; S/P R TKA 11/25/17 Dr. Dale Discharge [...] Sign Reading Time Taken Comments Blood Pressure 151/58 11/26/2017 12:05 PM EDT re check Pulse 66 11/26/2017 11:27 AM EDT Temperature 36.6 ??C (97.9 ??F) 11/26/2017 11:27 AM E DT Respiratory Rate 16 11/26/2017 11:27 AM EDT Oxygen Saturation 95% 11/26/2017 11:27 AM EDT Inhaled Oxygen Concentration - - Weight 104.3 kg (230 lb) 11/25/2017 9:33 AM EDT Height 177.8 cm (5' 10) 11/25/2017 9:33 AM EDT Body Mass Index 33 11/25/2017 9:33 AM EDT documented in this encounter Discharge Summaries * Guy Giraldo MD - 11/26/2017 12:41 PM EDT Discharge Summary Patient Name: Cody Bolden Patient Age: 67 y.o. Language: Dominican Race: White Ethnicity: Not nor Admit date: 11/25/2017 Discharge date and time: 11/26/2017 Attending Physician: Breezy Dale MD Discharge Physician: Breezy Dale MD Follow-up Recommendations for Providers: See discharge instructions for additional details. Future Appointments Date Time Provider Department Center 01/04/2018 12:30 PM [facility] DX ROOM 6 Xray [facility] 01/04/2018 1:30 PM Franko Hartley PA [facility] [address] [place] [address] CLIN Inpatient Provider Contact Information: Breezy Dale MD Orthopedics: [phone] After hours and weekends, call [facility] Works Manager, , and have the Orthopedic resident paged. [...] Vitamin D deficiency ??? 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 [...] Primary * Anmol De Leon MD - Resident-Hatchery Manager Procedure(s): RIGHT TOTAL KNEE ARTHROPLASTY MODIFIER, ATTUNE CURVED FIXED PLATFORM, SNAPP'UY Intraoperative Findings: Arthritic changes in all three [...] bowel movement. You can also take an htjx-gko-eklhiru medication, Miralax if needed to combat constipation. [...] as much as possible. Call your doctor ([phone]) if you develop: 1. Fever greater than 100.5 2. Severe nausea or vomiting 3. Increasing pain that is not controlled by pain medications 4. Increasing redness, swelling, or drainage from incisions 5. Change in sensation FOLLOW-UP APPOINTMENTS: 1. You will have follow-up appointments at [facility] as indicated below in Future Appointment and Orders. 2. You will need to have x-rays prior to your follow-up appointment on 01/04/2018. Please come to Radiology, desk 3T, 1 hour BEFORE that appointment for those x-rays. Future Appointments Date Time Provider Department Center 01/04/2018 12:30 PM [facility] DX ROOM 6 Xray [facility] Rad Clin 01/04/2018 1:30 PM Franko Hartley PA [facility] [address] [place] [address] If you have questions or concerns: Thursday through Thursday, 8 AM - 5 PM, please call Breezy Yang MD's office at . If it is after 5 PM, the weekend, or holidays, please call and ask to speak with theOrthopedic resident on-call. General Instructions None Future Appointments and Orders Future Appointments Provider Department Dept Phone 01/04/2018 1:30 PM Franko Hartley PA Orthopaedics at [place] [phone] Future Orders Complete By Expires Walker standard [EQ135 Custom] As directed Process Instructions: Scheduling Instructions: Comments: Cody Bolden [address] [facility] [address] (home) [phone] (work) Telephone Information: Diagnosis:right total knee arthroplasty with Unsteady gait Patient's: Hgt: 5'10 Wgt: 230 VENDOR: [facility] Ordering: Front wheel walker Deliver to pt's hospital room #: Short Stay 17 Questions: Vendor Name/Contact information: [facility] Primary Care Provider: Urbano Denis DO [phone] Discharge References/Attachments None documented in this encounter [...] bowel movement. You can also take an tgtn-vzr-cochsks medication, Miralax if needed to combat constipation. [...] as much as possible. Call your doctor ([phone]) if you develop: 1. Fever greater than 100.5 2. Severe nausea or vomiting 3. Increasing pain that is not controlled by pain medications 4. Increasing redness, swelling, or drainage from incisions 5. Change in sensation FOLLOW-UP APPOINTMENTS: 1. You will have follow-up appointments at [facility] as indicated below in Future Appointment and Orders. 2. You will need to have x-rays prior to your follow-up appointment on 01/04/2018. Please come to Radiology, desk 3T, 1 hour BEFORE that appointment for those x-rays. Future Appointments Date Time Provider Department Center 01/04/2018 12:30 PM [facility] DX ROOM 6 Xray [facility] 01/04/2018 1:30 PM Franko Hartley PA [facility] [place] CL[facility] If you have questions or concerns: [...] EDT Office of Care Management (OCM) / Management Architect(CM) Providers have indicated that patient would benefit from use of walker. CM will have chief resource officer send referral to Ortho Care Located @ [facility] Center [place], [place] For discharge home today from Short Stay unit. Aarti Appiah RN Case Manager Pager [phone] * Anmol De Leon - 11/26/2017 6:17 [...] with outpatient services Alize Hardwick, PT Pager: [phone] Inpatient Physical Therapy [facility] AM-PAC 6 Clicks/stairs Basic Mobility Inpatient [...] used to select the disability modifier. Mr. Bolden'tamika current G-Code functional level is 0% impaired [...] Status right lower extremity Bed Mobility Assessment/Treatment Ckquvb-tb-Bpc [place] (Bed Mobility) independent Ypz-ur-Nhniya [place] (Bed Mobility) independent Transfer Assessment/Treatment [place] (Sit-Stand Transfers) conditional independence [place] (Stand-Sit Transfers) conditional independence Myn-Gncfs-Gox Assistive Device (Transfers) rolling walker [place] (Toilet Transfers) conditional independence Assistive Device (Toilet Transfers) rolling walker Impairments (Transfers) ROM (range of motion) decreased;pain;strength decreased Gait Assessment/Treatment [place] (Gait) conditional independence Assistive Device (Gait) rolling walker Distance in Feet (Gait) >150ft Gait Pattern Analysis swing-through gait Impairments (Gait) pain;ROM (range of motion) decreased;strength decreased Comment (Gait) Pt demonstrates mild antalgic gait pattern, steady with use of walker Stairs Assessment/Treatment Number of Stairs (Stairs) 13 Handrail Location (Stairs) left side (ascending) [place] (Stairs) conditional independence Technique (Stairs) oljt-ma-qlch (ascending);budi-nn-jkpd (descending) Impairments (Stairs) pain;ROM (range of motion) [...] Discharge Disposition: (P) home with assist Pager: [phone] ANATOLY VAZQUEZ OT 11/26/2017 Occupational Therapy Rehabilitation Department 2017 [...] Comment 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 Patient uses cane when needed. Vision Assessment/Intervention Additional Documentation (WFL) Cognitive Assessment/Intervention Additional Documentation (WFL) Pain Scale/Rating Pain Assessment Scale Numbers (Numeric Rating Pain Scale) Pain Level 2 ROM (Range of Motion) Additional Documentation General Assessment (Group) General Range of Motion Detail WNL Bed Mobility Assessment/Treatment Xipfki-dn-Tvt [place] (Bed Mobility) independent Transfer Assessment/Treatment Bed-Chair [place] (Transfers) independent Chair-Bed [place] (Transfers) independent Qxe-Eiiwf-Tvy Assistive Device (Transfers) rolling walker [place] (Sit-Stand Transfers) independent [place] (Stand-Sit Transfers) independent Gyb-Ylvax-Llb Assistive Device (Transfers) rolling walker Gait Assessment/Treatment [place] (Gait) independent Assistive Device (Gait) rolling walker [...] Body Dressing Assessment/Training Position (LB Dressing) standing;sitting [place] Level (LB Dressing) conditional independence Clinical Impression [...] Dale MD - 11/25/2017 12:15 PM EDT [facility] Operative Note Patient Name: Cody Bolden : [id number] MR#: [id number] Case Date: 11/25/2017 Surgeon: Surgeon(s) and Role: * Breezy Dale MD - Primary * Anmol De Leon MD - Resident-Hatchery Manager Preoperative Diagnosis: Osteoarthritis right knee Postoperative Diagnosis: Same Procedure Performed: right Total Knee Arthroplasty (CPT 13393) Anesthesia: Spinal, Adductor Canal Block (performed in [...] spacer blocks were removed and the metal mulling machine operator was placed on the medial side with [...] the remaining femoral cut. A large lamina marketing/sales person was placed in the notch. On the medial side we removed the remaining meniscus and then ressected posterior osteophyte. The pericapsular injection was then infiltrated into themedial and posterior structures making sure to aspirate before infiltrating. The lamina marketing/sales person was changed to view the lateral side. [...] Implant Name Type Inv. Item Serial No. Service Control Operator Lot No. LRB No. Used Action CEMENT,BNE,SMARTSET,GHV,40G ([id number]) - [id number] IMPLANTS CEMENT,BNE,SMARTSET,GHV,40G ([id number]) Stylefie [id number] Right 2 Implanted BASE,ATUN,TIB,FB,CMNT,SZ8 ([id number]) (AUTOREQ) - [id number] IMPLANTS BASE,ATUN,TIB,FB,CMNT,SZ8 ([id number]) (AUTOREQ) DepRetiDiagWindows Deployment Technician - [id number] Right 1 Implanted CAESAR CAUSEY MDL,DOME,41MM ([id number]) (AUTOREQ) - [id number] IMPLANTS CAESAR CAUSEY MDL,DOME,41MM ([id number]) (AUTOREQ) Depuy Windows Deployment Technician - [id number] Right 1 Implanted COMPO,ATTUNE,FEM,CR,SZ8,RT ([id number]) (AUTOREQ) - [id number] IMPLANTS COMPO,ATTUNE,FEM,CR,SZ8,RT ([id number]) (AUTOREQ) Depuy Windows Deployment Technician - [id number] Right 1 Implanted INSER,ATTUNE,CR,FB,SZ8,5MM ([id number]) (AUTOREQ) - [id number] IMPLANTS INSER,ATTUNE,CR,FB,SZ8,5MM ([id number]) (AUTOREQ) Depuy Windows Deployment Technician - [id number] Right 1 Implanted documented in this encounter Plan of Treatment Upcoming Encounters Date Type Department Care Team (Late st Contact Info) Description 04/15/2024 10:00 AM EDT Hospital Encounter Non-[place] [id number] Arrived documented as of this encounter Goals [...] POCT GLUCOSE Routine 11/25/2017 10:27 AM EDT FRONT COUNTER ATTENDANT SCAN 11/25/2017 12:00 AM EDT EKG 12-LEAD Routine 11/04/2017 12:43 PM EDT Pain of right lower extremity Debility Primary osteoarthritis of right knee documented in this encounter Results * (ABNORMAL) POCT Glucose (11/26/2017 11:22 AM EDT) Glucose, POC 208(H) 65 - 199 mg/dL [facility] Comment: Supplemental ranges: <140 mg/dL before meals <180 mg/dL all other times of the day Blood specimen (specimen) 11/26/2017 11:22 AM EDT 11/26/2017 11:22 AM EDT Breezy Dale MD POINT OF CARE TEST ORDERABLES [facility] [place] [address] * POCT Glucose (11/26/2017 7:15 AM EDT) Glucose, POC 176 65 - 199 mg/dL [facility] Comment: Supplemental ranges: <140 mg/dL before meals <180 mg/dL all other times of the day Blood specimen (specimen) 11/26/2017 7:15 AM EDT 11/26/2017 7:15 AM EDT Breezy Dale MD POINT OF CARE TEST ORDERABLES [facility] [place] [address] * (ABNORMAL) Differential, Automated (11/26/2017 1:33 AM EDT) Neutrophil % 90.9 % [facility] Neutrophil Absolute 11.45(H) 1.70 - 6.10 x10(3)/mc L [facility] Lymph % 5.2 % [facility] Lymphocytes Abs 0.6(L) 0.9 - 3.2 x10(3)/mc L [facility] Monocyte % 3.0 % [facility] Monocyte Abs 0.4 0.3 - 0.9 x10(3)/mc L [facility] Eos % 0.2 % [facility] Eosinophils Abs 0.0 0.0 - 0.4 x10(3)/mc L [facility] Basophil % 0.3 % [facility] Baso Absolute 0.0 0.0 - 0.1 x10(3)/mc L [facility] Immature Gran % 0.40 % [facility] Comment: Immature granulocytes(IG's)percentage and absolute count will include metamyelocytes, myelocytes, and promyelocytes. Blood smears from CBCs yielding IG's will be scanned manually for concordance. If this scan disagrees with the automated IG or if promyelocytes are noted, a manual differential will be performed. Immature Gran Absolute 0.05(H) 0.00 - 0.04 x10(3)/mc L [facility] Blood specimen (specimen) 11/26/2017 1:33 AM EDT 11/26/2017 1:37 AM EDT Narrative Resulting Agency Comment Spec In Lab Anmol De Leon MD HEMATOLOGY ORDERABLE S Performing Organization Address City/[facility]/ZIP Co de Phone Number [facility] [place] [address] * (ABNORMAL) Hemogram (11/26/2017 1:33 AM EDT) White Blood Cell 12.6(H) 4.0 - 9.5 x10(3)/mc L [facility] Red Blood Cell 4.90 4.58 - 5.54 x10(6)/mc L [facility] Hemoglobin 15.1 13.7 - 16.5 gm/dL [facility] Hematocrit 42.8 40.5 - 48.5 % [facility] Mean Cell Volume 87.3 82.9 - 93.1 [facility] Mean Cell Hemoglobin 30.8 27.5 - 32.1 [facility] Mean Cell Hemoglobin Concentration 35.3 32.0 - 35.7 gm/dL [facility] Platelet 249 145 - 357 x10(3)/mc L [facility] RDW Standard Deviation 42.6 36.0 - 45.0 [facility] RDW coefficient of variation 13.3 11.4 - 13.8 % [facility] Mean Platelet Volume 9.4 7.6 - 12.9 [facility] NRBC% auto 0.0 % [facility] NRBC Absolute 0.000 0.000 - 0.000 x10(3)/mc L [facility] Blood specimen (specimen) 11/26/2017 1:33 AM EDT 11/26/2017 1:37 AM EDT Narrative Resulting Agency Comment Spec In Lab Anmol De Leon MD HEMATOLOGY ORDERABLE S [facility] [place] [address] * Basic Metabolic Panel (non-fasting) (11/26/2017 1:33 AM EDT) Glucose 192 65 - 199 mg/dL [facility] Comment:Diabetes: >=200 mg/d L plus symptoms Blood Urea Nitrogen 15 10 - 20 mg/dL [facility] Creatinine 1.17 0.80 - 1.50 mg/dL [facility] Sodium 139 135 - 145 mmol/L [facility] Potassium 3.9 3.5 - 5.0 mmol/L [facility] Comment: Please note: ??Patients with WBC >100,000 may have falsely elevated Potassium levels. ??For accurate Potassium quantification in these patients send serum separator tube (gold top) for subsequent determinations. ??Contact the Clinical Chemistry Laboratory if there are any questions. Chloride 100 98 - 107 mmol/L [facility] Carbon Dioxide 24 22 - 31 mmol/L [facility] Anion Gap 15 5 - 15 mmol/L [facility] Calcium 8.8 8.5 - 10.5 mg/dL [facility] Est Glomerular Filtration Rate >60 >=60 [facility] Comment: The reported eGFR should be multiplied by 1.2 for patients. The MDRD is not an appropriate measure of renal function for patients with body mass extremes or in patients with acute kidney failure. [email or web address].[email or web address]/DHnkdep [email or web address]ter[employer]/DHMCnkf Blood specimen (specimen) 11/26/2017 1:33 AM EDT 11/26/2017 1:37 AM EDT Narrative Resulting Agency Comment Spec In Lab Breezy Dale MD CHEMISTRY ORDERABLE S [facility] [place] [address] * POCT Glucose (11/25/2017 10:04 PM EDT) Glucose, POC 192 65 - 199 mg/dL [facility] Comment: Supplemental ranges: <140 mg/dL before meals <180 mg/dL all other times of the day Blood specimen (specimen) 11/25/2017 10:04 PM EDT 11/25/2017 10:04 PM EDT Breezy Dale MD POINT OF CARE TEST ORDERABLES [facility] [place] [address] * POCT Glucose (11/25/2017 7:06 PM EDT) Glucose, POC 116 65 - 199 mg/dL [facility] Comment: Supplemental ranges: <140 mg/dL before meals <180 mg/dL all other times of the day Blood specimen (specimen) 11/25/2017 7:06 PM EDT 11/25/2017 7:06 PM EDT Breezy Dale MD POINT OF CARE TEST ORDERABLES Performing Organization Address City/[facility]/ZIP Co de Phone Number [facility] [place] [address] * POCT Glucose (11/25/2017 3:36 PM EDT) Glucose, POC 167 65 - 199 mg/dL [facility] Comment: Supplemental ranges: <140 mg/dL before meals <180 mg/dL all other times of the day Blood specimen (specimen) 11/25/2017 3:36 PM EDT 11/25/2017 3:36 PM EDT Breezy Dale MD POINT OF CARE TEST ORDERABLES [facility] [place] [address] * POCT Glucose (11/25/2017 1:05 PM EDT) Glucose, POC 146 65 - 199 mg/dL [facility] Comment: Supplemental ranges: <140 mg/dL before meals <180 mg/dL all other times of the day Blood specimen (specimen) 11/25/2017 1:05 PM EDT 11/25/2017 1:05 PM EDT Breezy Dale MD POINT OF CARE TEST ORDERABLES Performing Organization Address City/[facility]/ZIP Co de Phone Number [facility] [place] [address] * POCT Glucose (11/25/2017 11:32 AM EDT) Glucose, POC 142 65 - 199 mg/dL [facility] Comment: Supplemental ranges: <140 mg/dL before meals <180 mg/dL all other times of the day Blood specimen (specimen) 11/25/2017 11:32 AM EDT 11/25/2017 11:32 AM EDT Breezy Dale MD POINT OF CARE TEST ORDERABLES Performing Organization Address [facility]/ZIP Co de Phone Number [facility] [place] [address] * POCT Glucose (11/25/2017 10:27 AM EDT) Glucose, POC 141 65 - 199 mg/dL [facility] Comment: Supplemental ranges: <140 mg/dL before meals <180 mg/dL all other times of the day Blood specimen (specimen) 11/25/2017 10:27 AM EDT 11/25/2017 10:27 AM EDT Breezy Dale MD POINT OF CARE TEST ORDERABLES Performing Organization Address City/[facility] Co de Phone Number [facility] [place] [address] * SCAN DOC: FRONT COUNTER ATTENDANT (11/25/2017 12:00 AM EDT) Anatomical Region Laterality [...] (Bezet) 453 ms MUSE SYSTEM Calculated P Dows 44 degrees MUSE SYSTEM Calculated R Dows -59 degrees MUSE SYSTEM Calculated T Dows 2 degrees MUSE SYSTEM INTERPRETATION Sinus rhythm [...] documented in this encounter Visit Diagnoses Diagnosis S/P R TKA 11/25/17 Dr. Dale- Primary Knee joint replacement by other means Pain of right lower extremity Debility Debility, unspecified Primary osteoarthritis of right knee Primary localized osteoarthrosis, lower leg S/P R TKA 11/25/17 Dr. Dale Knee joint replacement by other means documented in this encounter Administered Medications Inactive [...] Given 11/25/2017 7:00 PM EDT 1,000 mg ceFAZolin (ANCEF) 1g in dextrose 5% 50mL [...] 3:45 PM EDT 1 g 100 mL/hr clopidogrel (PLAVIX) tablet 75 mg 75 mg, [...] Given 11/25/2017 4:20 PM EDT 2 Units lactated Ringers infusion 1,000 mL 1,000 mL, at 100 mL/hr, Intravenous, CONTINUOUS, Starting on Thu11/25/17 at 1015, Until Thu11/25/17 at 1519, Day of Surgery (Day of Procedure) New Bag 11/25/2017 10:15 AM EDT 1,000 mLs 100 mL/hr levothyroxine (SYNTHROID) tablet 137 mcg 137 mcg, Oral, EVERY MORNING, First dose on Thu11/26/17 at 0600, Until Discontinued, Routine Given 11/26/2017 [...] Until Thu11/26/17 at 1714, Recovery (Recovery-Hospital Unit) New Bag 11/25/2017 1:08 PM EDT 75 mL/h r 75 mL/hr tacrolimus (PROGRAF) capsule 1 mg 1 mg, Oral, NIGHTLY, First dose on Thu11/25/17 at 2100, Until Discontinued, Routine Given 11/25/2017 8:41 PM EDT 1 mg tacrolimus (PROGRAF) capsule 2 mg 2 mg, Oral, DAILY AFTER BREAKFAST, First dose on Thu11/26/17 at 0900, Until Discontinued, Routine Given 11/26/2017 [...] RN - Comment: pt just arrived to [facility]) 0200 (Given - Provider: Brenda Flynn RN)1205 [...] Garcia RN)2315 (New Bag - Provider: Brenda Flynn RN)2345 (Stopped - Provider: Brenda Flynn, JADEN) 0622 (New Bag - Provider: Brenda Flynn, JADEN)0652 (Stopped - Provider: Daksha Peralta RN) ceFAZolin (ANCEF) 2g in dextrose 5% 100 [...] Procedure), Routine 1005 (Given - Provider: Jerri Sanchez, JADEN) gabapentin (NEURONTIN) capsule 300 mg(Linked Group 1) 300 mg, Oral, NIGHTLY, First dose on Thu11/27/17 at 2100, Until Discontinued, Routine gabapentin (NEURONTIN) capsule 600 mg(Linked Group 1) 600 mg, Oral, NIGHTLY, 2 doses, First dose on Thu11/25/17 at 2100, Last dose on Thu11/26/17 at 2100, Routine 2042 (Given - Provider: Brenda Flynn, JADEN) insulin lispro (HumaLOG) VIAL injection 1-4 [...] Garcia RN) 0727 (Given - Provider: Daksha Peralta, JADEN)1206 (Given - Provider: Daksha Peralta, JADEN) levothyroxine (SYNTHROID) tablet 137 mcg 137 mcg, Oral, EVERY MORNING, First dose on Thu11/26/17 at 0600, Until Discontinued, Routine 621 (Given - Provid er: Brenda Flynn RN) magnesium oxide (MAG-OX) tablet 400 mg 400 mg, Oral, 2 TIMES DAILY, First dose on Thu11/25/17 at 2100, Until Discontinued, Routine 2041 (Given - Provider: Brenda Flynn RN) 0828 (Given - Provider: Daksha Peralta RN) [...] Patient/family refused) 0827 (Given - Provider: Daksha Peralta RN) polyethylene glycol (MIRALAX) packet 17 g 17 g, Oral, 2 TIMES DAILY, First dose on Thu11/25/17 at 2100, Until Discontinued, Routine 2042 (Given - Provider: Brenda Flynn RN) 0827 (Given - Provider: Daksha Peralta, JADEN) potassium phosphate (monobasic) (K-PHOS) tablet 500 mg 500 mg, Oral, 2 TIMES DAILY, First dose on Thu11/25/17 at 2100, Until Discontinued, Dissolve tablets in 6-8 oz of water; for best results, soak tablets in water for 2-5 minutes, then stir and give to patient., Routine 2040 (Given - Provider: Brenda Flynn RN) 828 (Given - Provider: Daksha Peralta, JADEN) senna-docusate (PERICOLACE) 8.6-50 mg per tablet 2 tablet 2 tablet, Oral, 2 TIMES DAILY, First dose on Thu11/25/17 at 2100, Until Discontinued, Routine 2041 (Given - Provider: Brenda Flynn RN) 826 (Given - Provider: Daksha Peralta RN) sodium chloride 0.9 % flush 5 [...] on Thu11/26/17 at 0900, Until Discontinued, Routine 828 (Given - Provid er: Daksha Peralta RN) [...] Laura 11/26/17 at 1714, Recovery (Recovery-Hospital Unit) 1308 (New Bag - Provider: Shannan Garcia, JADEN)2006 (Stopped - Provider: Brenda Flynn RN) PRN [...] Procedure), Routine 1011 (Given - Provider: Jerri Sanchez RN) ondansetron (ZOFRAN) injection 4 mg(Linked Group 5) [...] relieved., Routine 1527 (Given - Provider: Shannan Garcia, JADEN)2042 (Given - Provider: Brenda Flynn, RN) 0121 (Given - Provider: Brenda Flynn, RN)0736 (Given - Provider: Olga Astorga RN) sodium [...] Unit) documented in this encounter Care Teams Business Writer Relationship Specialty Start Date End Date Urbano Denis DO [address] [place] [address] [address] [facility] [address] [place] [address] PCP - General 09/03/12 03/17/22 Hai STANLEY,Ruchi Nurse Clinic Transplant Surgery 07/30/15 documented as of this encounter
--- OUTSIDE RECORDS SUMMARY | 2024-02-14 11:25 | XMS_ITS | Encounter Summary ---
Author Organization [facility] Address [facility] [place] [address] Care Team Providers Care Night Guard Name Role Phone AdeelUrbano boland Primary Care Provider [phone] Reason for Visit * Reason Comments Post Op R TKA Encounter Details Date Type Department Care Team (Late st Contact Info) Description 01/04/2018 1:30 PM EDT Office [place] [address] Franko Hartley PA [facility] DR [place] [address] S/P R TKA 11/25/17 Dr. Dale (Primary Dx) Social History Tobacco Use Types [...] Sign Reading Time Taken Comments Blood Pressure 150/66 01/04/2018 1:10 PM EDT Pulse 59 01/04/2018 1:10 PM EDT Temperature 36.5 ??C (97.7 ??F) 01/04/2018 1:10 PM ED T Respiratory Rate - - Oxygen Saturation - - Inhaled Oxygen Concentration - - Weight 95.7 kg (211 lb) 01/04/2018 1:10 PM EDT v erbal Height 177.8 cm (5' 10) 01/04/2018 1:10 PM EDT verbal Body Mass Index 30.28 01/04/2018 1:10 PM EDT documented in this encounter Progress Notes * Franko Hartley PA - 01/04/2018 1:30 PM EDT Images from the original note were not included. Arthroplasty/Orthopaedic History: 1. Right TKA. Dr. Dale. 11/25/2017. HPI: Cody Bolden is a very pleasant 67 y.o. year-old male and is now 5 weeks post right totalknee replacement The patient has been doing poorly, mainly due to a scab at the bottom of his incision, and night pain. His knee is also stiff. He is frustrated due to the above, and would like to discuss each of these in detail, review his X-Rays. He also requests a repeat pain medication prescription. He is taking APAP around the clock. He is not taking NSAIDs due to a kidney transplant, and heis taking 5-10 mg of oxycodone per dose which does not touch it.. Pain is controlled with currentanalgesics. Medication(s) being used: acetaminophen, oxycodone. No fevers, chills, nausea, vomiting, or symptoms of infection. Cody has been ambulating with no assistive device and working with PT.He is taking narcotic pain medicine. ROS: Denies: fever, chills, night sweats, nausea, or vomiting BP 150/66 (BP Location (NBP): Right arm, Patient Position: Sitting, BP Cuff Sizes: Adult (25-34 cm)) Pulse 59 Temp 36.5 ??C (97.7 ??F) (Oral) Ht 177.8 cm (5' 10) Comment: verbal Wt 95.7 kg (211 lb) Comment: verbal BMI 30.28 kg/m2 Physical Exam: Well-appearing male in no acute distress. Alert and Oriented x 3 and answers all questions appropriately. The incision is well healed, with no signs of infection. Dried eschar about the distal end of the incision. No periincisonal erythema. Post Op Right Knee Exam: Knee ROM: Extension:10 I can push him to 5 degrees, with pain Flexion: 100 I can push him to 110. Alignment: 0-4 degrees Neutral Stability: A/P Translation <5mm. Varus <5mm Valgus <5mm Extension La degrees or less Patella Tracking: Normal Pulses Palpable: Right PT: Yes Right DP:Yes Motor/Sensory: Distal Motor: Normal Distal Sensory: Normal Quadriceps Strength: 5 X-RAYS: Multiple radiographic views were obtained at my request and reviewed with the patient. X-rays show a well-placed prosthesis with no evidence of fracture, subsidence, loosening, or periprosthetic complication. Questionnaire Responses: [facility] Surgical Postop Visit 01/04/2018 PROMIS-10 General Health Very Good PROMIS-10 Quality of Life Fair PROMIS-10 Physical Health Good PROMIS-10 Mental Health Good PROMIS-10 Social Activity Good PROMIS-10 Everyday Activities Moderately PROMIS-10 Pain 2 PROMIS-10 Fatigue Moderate PROMIS-10 Social Roles Fair PROMIS-10 Anxious or Depressed Sometimes PROMIS PHYSICAL HEALTH SCORE 42.3 PROMIS MENTAL HEALTH SCORE 41.1 KOOS JR Scores 39.63 Problems with surgical incision/wound after surgery Yes Problems with incision Pain, Redness, Swelling, Discharge or drainage Prescribed antibiotics No Caregiver after your surgical incision problem Relative/partner/friend Gone to ER since knee surgery No Admitted to hospital since recent ortho surgery No Additional surgery on same body part No TKA Grade 2 Pain in other KNEE None Back pain at this moment None Satisfaction with Treatment Somewhat satisfied Orthopeadics [facility] Response 01/04/2018 KOOS JR Scores 39.63 Spine [facility] Response 01/04/2018 KOOS JR Scores 39.63 ASSESSMENT/PLAN: Mr. Bolden is a 67 y.o. year old male status post right total knee replacement. Postoperative course complicated by pain, eschar about the distal incision. Continue weightbearing as tolerated and working on range of motion. We will see him back in 8 weeks for repeat examination for a ROM check. Patient and spouse request labs be placed for ruling out infection if the wound getsworse, and they will get them completed at [facility]. They also request a repeat pain script. The data base was query completed, and 5 mg of oxycodone, 30 tablets dispensed. Recommend APAP, and nightly doses to help sleep. No X-rays will be needed at that time. Patient may return to normal activities ashis pain and function allow. Reviewed monitoring for infection, increase in depth, redness, drainage, or concern, call and obtain labs and send picture. Reviewed recovery s/p TKA. Reviewed his ROM and stiffness. Continue PT aggressively. Discussed goal ROM is 110-120 of flexion and 0 degrees of extension, as that was his pre-operative ROM. We should check his ROM in 8 weeks. We discussed the appropriate precautions surrounding dental prophylaxis; according to the AAOS Appropriate Use Criteria we do recommend antibiotic use prior to dental procedures for Cody. Recommended antibiotic: Amoxicillin (50mg/kg, maximum 2 gm) 1 hour prior to dental work; dose: Renally dosed If Cody has any changes in health status we recommend he contact our office prior to dental procedures for updated recommendations We also discussed maintaining good foot care and giving prompt attention to any source of infectionthroughout the body including foot ulcers and urinary tract infections. All questions were answered. Signed: MCKINLEY WRIGHT 01/04/2018 documented in this encounter Plan of Treatment Upcoming Encounters Date Type Department Care Team (Late st Contact Info) Description 04/15/2024 10:00 AM EDT Hospital Encounter [place] [address] Arrived documented as of this encounter Goals Goal Patient Goal Type Associated Problems Recent Progress Patient-Stated? Author DH Home Medication Compliance and Understanding Patient Facing Action Plan On track( 017 10:41 AM EDT) Selena Scott, [facility] Note: Patient Goal: Clear hepatitis C Timeframe to meet goal: within 12 weeks of therapy documented as of this encounter Visit Diagnoses Diagnosis S/P R TKA 11/25/17 Dr. Dale- Primary Knee joint replacement by other means documented in this encounter Care Teams Night Guard Relationship Specialty Start Date End Date Urbano Denis DO [address] [place] [address] PCP - General 09/03/12 03/17/22 Hai STANLEY,Ruchi Nurse Clinic Transplant Surgery 07/30/15 documented as of this encounter
--- OUTSIDE RECORDS SUMMARY | 2024-02-14 11:26 | XMS_ITS | Encounter Summary ---
[place] [address] Care Team Providers Care Doubler Helper Name Role Phone Urbano Denis DO Primary Care Provider Encounter Details Date Type Department Care Team (Latest Contact Info) Description 04/16/2017 8:42 PM EDT - 04/16/2017 11:59 PM EDT Hospital [place] [address] Discharge Disposition: Home Social History Tobacco Use [...] Sig Dispensed Refills Start Date End Date sulfamethoxazole-trim ethoprim (BACTRIM;SEPTRA) 400-80 mg Tablet Take 1 tablet by mouth daily. 90 tablet 3 03/26/2017 11/04/2017 mycophenolate (CELLCEPT) 250 mg Capsule Take 250 mg twice daily. Kidney transplant 09/16/15. ICD code Z94.0 60 capsule 11 12/12/2016 12/21/2017 calciTRIol (ROCALTROL) 0.5 mcg Capsule Take 1 capsule by mouth daily. 90 capsule 3 12/11/2016 12/11/2017 potassium phosphate, monobasic, (K-PHOS) 500 mg Tablet, Soluble Take 3 tabs at lunch time and 3 tabs at bedtime 540 tablet 3 12/11/2016 08/19/2017 tamsulosin (FLOMAX) 0.4 mg Capsule, Sust. Release 24 hr Take 1 capsule by mouth nightly for 364 days. 30 capsule 11 12/11/2016 07/30/2017 PROGRAF 1 mg Capsule Take 2 capsules in the morning and 1 capsule at night. Kidney transplant 09/16/2015. ICD code Z94.0 270 capsule 3 12/03/2016 12/11/2017 ascorbic acid, vitamin C, (VITAMIN C) 500 mg Tablet Take 1 tablet by mouth 3 times daily. 30 tablet 3 06/25/2016 12/27/2020 clopidogrel (PLAVIX) 75 mg Tablet Take 75 mg by mouth daily. 02/17/2020 Magnesium Gluconate 27 mg (500 mg) Tablet Take 6 tablets at breakfast and at dinner 360 tablet 3 05/28/2016 09/09/2017 levothyroxine (SYNTHROID) 100 mcg Tablet Take 100 mcg by mouth daily. 04/22/2016 09/09/2017 acetaminophen (TYLENOL) 500 mg Tablet Take 1,000 mg by mouth every 6 hours as needed for Pain. Reported on 09/15/2016 11/26/2017 documented as of this encounter Plan of Treatment Upcoming Encounters Date Type Department Care Team (Late st Contact Info) Description 04/15/2024 10:00 AM EDT Hospital Encounter Non[place] [address] Arrived documented as of this encounter Goals [...] Date/Time Associated Diagnosis Comments TACROLIMUS LEVEL Routine 04/16/2017 10:3 5 AM EDT documented in this encounter Results * Tacrolimus level (04/16/2017 10:35 AM EDT) Tacrolimus 8.2 ng/mL [facility] Comment: Trough therapeutic: ??5-15 ng/mL Performed by ultra-performance liquid chromatography tandem mass spectrometry (UPLCMS/MS). This test was developed and its performance characteristics determined by [facility]. It has not been cleared or approved by the FDA. The laboratory is regulated under CLIA as qualified to perform high-complexity testing. This test is used for clinical purposes. It should not be regarded as investigational or for research. Blood specimen (specimen) Venous Draw / Unknown 04/16/2017 10:35 AM EDT 04/17/2017 7:12 AM EDT Narrative Resulting Agency Comment Spec In Lab Tal Eagle MD CHEMISTRY ORDERAB LES [facility] [place] [id number] documented in this encounter Visit Diagnoses Not on filedocumented in this encounter Care Teams Doubler Helper Relationship Specialty Start Date End Date Urbano Denis DO [address] [place] [address] PCP - General 09/03/12 03/17/22 Ruchi Valles RN Nurse Clinic Transplant Surgery 07/30/15 documented as of this encounter
--- OUTSIDE RECORDS SUMMARY | 2024-02-14 11:26 | XMS_ITS | Encounter Summary ---
Author Organization [facility] [place] [address] Care Team Providers Care Pickling Drum Operator Name Role Phone Adeel Urbano KIRBY Primary Care Provider [phone] Reason for Visit * Reason Onset Date Comments Medication Refill 03/25/2017 Encounter Details Date Type Department Care Team (Late st Contact Info) Description 03/24/2017 Refill [place] [address] Tal Eagle MD [facility] [place] [address] Social History Tobacco Use Types Packs/Day Years [...] encounter Miscellaneous Notes * Telephone Encounter - Joanne Nogueira CMA - 03/25/2017 9:55 AM EDT Patient's left message on refill request line for bacterium [id number] [facility] documented in this encounter Plan of Treatment Upcoming Encounters Date Type Department Care Team (Late st Contact Info) Description 04/15/2024 10:00 AM EDT Hospital Encounter Non[place] [address] Arrived documented as of this encounter Goals [...] on filedocumented in this encounter Care Teams Pickling Drum Operator Relationship Specialty Start Date End Date Urabno Denis DO [address] [place] [address] PCP - General 09/03/12 03/17/22 Ruchi Valles RN Nurse Clinic Transplant Surgery 07/30/15 documented as of this encounter
--- OUTSIDE RECORDS SUMMARY | 2024-02-14 11:26 | XMS_ITS | Encounter Summary ---
Author Organization [facility] [place] [address] Care Team Providers Care Licsw Name Role Phone Urbano Denis DO Primary Care Provider Encounter Details Date Type Department Care Team (Latest Contact Info) Description 05/19/2017 9:06 PM EST - 05/19/2017 11:59 PM EST Hospital [place] [address] Discharge Disposition: Home Social History Tobacco Use [...] AM EDT Hospital Encounter Non-Invasive [place] [address] Arrived documented as of this encounter Goals [...] Date/Time Associated Diagnosis Comments TACROLIMUS LEVEL Routine 05/19/2017 11:1 0 AM EST documented in this encounter Results * Tacrolimus level (05/19/2017 11:10 AM EST) Tacrolimus 4.6 ng/mL [facility] Comment: Trough therapeutic: ??5-15 ng/mL Performed by ultra-performance liquid chromatography tandem mass spectrometry (UPLCMS/MS). This test was developed and its performance characteristics determined by [facility]. It has not been cleared or approved by the FDA. The laboratory is regulated under CLIA as qualified to perform high-complexity testing. This test is used for clinical purposes. It should not be regarded as investigational or for research. Blood specimen (specimen) Venous Draw / Unknown 05/19/2017 11:10 AM EST 05/20/2017 7:44 AM EST Narrative Resulting Agency Comment Spec In Lab Tal Eagle MD CHEMISTRY ORDERAB LES [facility] [place] [address] documented in this encounter Visit Diagnoses Not on filedocumented in this encounter Care Teams Licsw Relationship Specialty Start Date End Date Urbano Denis DO [address] [place] [address] PCP - General 09/03/12 03/17/22 Ruchi Valles RN Nurse Clinic Transplant Surgery 07/30/15 documented as of this encounter
--- OUTSIDE RECORDS SUMMARY | 2024-02-14 11:26 | XMS_ITS | Encounter Summary ---
Author Organization [facility] [place] [address] Care Team Providers Care Extrusion Die Corrector Name Role Phone Urbano Denis DO Primary Care Provider [phone] Reason for Visit * Reason Comments Medication Refill Encounter Details Date Type Department Care Team (Late st Contact Info) Description 07/17/2017 Refill [place] [address] Que Amaro MD [facility] [place] [address] Social History Tobacco Use Types Packs/Day Years [...] EDT Hospital Encounter Non-Invasive [place] [address] Arrived documented as of this encounter Goals [...] on filedocumented in this encounter Care Teams Extrusion Die Corrector Relationship Specialty Start Date End Date Urbano Denis DO [address] [place] [address] PCP - General 09/03/12 03/17/22 Ruchi Valles RN Nurse Clinic Transplant Surgery 07/30/15 documented as of this encounter
--- OUTSIDE RECORDS SUMMARY | 2024-02-14 11:26 | XMS_ITS | Encounter Summary ---
Author Organization [facility] [place] [address] Care Team Providers Care Sheather Name Role Phone Adeel Urbano KIRBY Primary Care Provider [phone] Reason for Visit * Reason Comments Medication Refill Encounter Details Date Type Department Care Team (Late st Contact Info) Description 08/19/2017 Refill [place] [address] Tal Eagle MD [facility] [place] [address] Social History Tobacco Use Types Packs/Day Years [...] AM EDT Hospital Encounter Non[place] [address] Arrived documented as of this encounter Goals Goal Patient Goal Type Associated Problems Recent Progress Patient-Stated? Author [facility] Medication Compliance and Understanding Patient Facing Action Plan On track(03/21/2 017 10:41 AM EDT) No Blayne, Selena M, [facility] Note: Patient Goal: Clear hepatitis C Timeframe to meet goal: within 12 weeks of therapy documented as of this encounter Visit Diagnoses Not on filedocumented in this encounter Care Teams Sheather Relationship Specialty Start Date End Date Urbano Denis DO [address] [place] [address] PCP - General 09/03/12 03/17/22 Ruchi Valles RN Nurse Clinic Transplant Surgery 07/30/15 documented as of this encounter
--- OUTSIDE RECORDS SUMMARY | 2024-02-14 11:26 | XMS_ITS | Encounter Summary ---
Author Organization [facility] [place] [address] Care Team Providers Care Business Applications Developer Name Role Phone Urbano Denis DO Primary Care Provider [phone] Encounter Details Date Type Department Care Team (Latest Contact Info) Description 06/18/2017 8:59 PM EST - 06/18/2017 11:59 PM EST Hospital [place] [address] Discharge Disposition: Home Social History Tobacco Use [...] AM EDT Hospital Encounter Non-[place] [address] Arrived documented as of this encounter Goals [...] Date/Time Associated Diagnosis Comments TACROLIMUS LEVEL Routine 06/18/2017 1:48 PM EST documented in this encounter Results * Tacrolimus level (06/18/2017 1:48 PM EST) Tacrolimus 6.9 ng/mL [facility] Comment: Trough therapeutic: ??5-15 ng/mL Performed by ultra-performance liquid chromatography tandem mass spectrometry (UPLCMS/MS). This test was developed and its performance characteristics determined by [facility]. It has not been cleared or approved by the FDA. The laboratory is regulated under CLIA as qualified to perform high-complexity testing. This test is used for clinical purposes. It should not be regarded as investigational or for research. Blood specimen (specimen) Venous Draw / Unknown 06/18/2017 1:48 PM EST 06/19/2017 7:23 AM EST Narrative Resulting Agency Comment Spec In Lab Tal Eagle MD CHEMISTRY ORDERAB LES [facility] [place] [id number] documented in this encounter Visit Diagnoses Not on filedocumented in this encounter Care Teams Business Applications Developer Relationship Specialty Start Date End Date Urbano Denis DO [address] [place] [address] PCP - General 09/03/12 03/17/22 Ruchi Valles RN Nurse Clinic Transplant Surgery 07/30/15 documented as of this encounter
--- OUTSIDE RECORDS SUMMARY | 2024-02-14 11:26 | XMS_ITS | Encounter Summary ---
Author Organization [facility] Address [facility] [place] [address] Care Team Providers Care Ostomy Rn Name Role Phone Urbano Denis DO Primary Care Provider [phone] Encounter Details Date Type Department Care Team (Late st Contact Info) Description 09/29/2016 Telephone [place] [address] Joanne Fernandes, RN [facility] [place] [address] Social History Tobacco Use Types Packs/Day Years [...] Miscellaneous Notes * Telephone Encounter - Joanne Fernandes, RN - 09/29/2016 5:08 PM EDT _Phone call from Mrs. Bolden. His primary care has started him on Glipizide II 5 mg q am for prediabetes She wants to make sure that his providers are aware of this and particularly concerned to make sure that there are not drug drug interactions. Have asked the specialty pharmacist who works with Mr. Tubiello to address this issue as well as informing Dr. Eagle and Dr. Rios. documented in this encounter Plan of Treatment Upcoming Encounters Date Type Department Care Team (Late st Contact Info) Description 04/15/2024 10:00 AM EDT Hospital Encounter Non-Invasive [place] [address] Arrived documented as of this encounter Goals [...] on filedocumented in this encounter Care Teams Ostomy Rn Relationship Specialty Start Date End Date Urbano Denis DO [address] [place] [address] [address] [facility] [address] [place] [address] PCP - General 09/03/12 03/17/22 Hai STANLEY,Ruchi Nurse Clinic Transplant Surgery 07/30/15 documented as of this encounter
--- OUTSIDE RECORDS SUMMARY | 2024-02-14 11:26 | XMS_ITS | Encounter Summary ---
Author [place] [address] Care Team Providers Care Multiple Tube Winding Machine Operator Name Role Phone Urbano Denis DO Primary Care Provider Encounter Details Date Type Department Care Team (Latest Contact Info) Description 07/20/2017 7:32 PM EST - 07/20/2017 11:59 PM EST Hospital [place] [address] Discharge Disposition: Home Social History Tobacco Use [...] Sig Dispensed Refills Start Date End Date calciTRIol (ROCALTROL) 0.5 mcg Capsule TAKE ONE CAPSULE BY MOUTH EVERY DAY 90 capsule 3 07/17/2017 09/09/2017 sulfamethoxazole-trim ethoprim (BACTRIM;SEPTRA) 400-80 mg Tablet Take [...] AM EDT Hospital Encounter Non-[place] [address] Arrived documented as of this encounter Goals Goal Patient Goal Type Associated Problems Recent Progress Patient-Stated? Author DH Home Medication Compliance and Understanding Patient Facing Action Plan On track( 017 10:41 AM EDT) Selena Scott [facility] Note: Patient Goal: Clear hepatitis C Timeframe to meet goal: within 12 weeks of therapy documented as of this encounter Procedures Procedure Name Priority Date/Time Associated Diagnosis Comments TACROLIMUS LEVEL Routine 07/20/2017 8:30 PM EST documented in this encounter Results * Tacrolimus level (07/20/2017 8:30 PM EST) Tacrolimus 6.4 ng/mL [facility] Comment: Trough therapeutic: ??5-15 ng/mL Performed by ultra-performance liquid chromatography tandem mass spectrometry (UPLCMS/MS). This test was developed and its performance characteristics determined by [facility]. It has not been cleared or approved by the FDA. The laboratory is regulated under CLIA as qualified to perform high-complexity testing. This test is used for clinical purposes. It should not be regarded as investigational or for research. Blood specimen (specimen) Venous Draw / Unknown 07/20/2017 8:30 PM EST 07/21/2017 7:46 AM EST Narrative Resulting Agency Comment Spec In Lab Tal Eagle MD CHEMISTRY ORDERAB LES [facility] [place] [address] documented in this encounter Visit Diagnoses Not on filedocumented in this encounter Care Teams Multiple Tube Winding Machine Operator Relationship Specialty Start Date End Date Urbano Denis DO [address] [place] [address] PCP - General 09/03/12 03/17/22 Ruchi Valles RN Nurse Clinic Transplant Surgery 07/30/15 documented as of this encounter
--- OUTSIDE RECORDS SUMMARY | 2024-02-14 11:26 | XMS_ITS | Encounter Summary ---
Author Organization [facility] [place] [address] Care Team Providers Care Elevator Constructor Helper Name Role Phone AdeelUrbano boland Primary Care Provider Encounter Details Date Type Department Care Team (Late st Contact Info) Description 05/26/2017 [place] [phone] Luis Carpio RN Social History Tobacco Use Types Packs/Day [...] encounter Miscellaneous Notes * Telephone Encounter - Luis Carpio RN - 05/26/2017 11:11 AM EST Reo Asset Manager called and spoke with Abbie from the [facility] [phone]. Abbie stated she will contact the Same Day Program to see what labs they were looking for. Luis Carpio RN-BSN Post Soil And Plant Scientist [facility] Solid Organ Transplant * Telephone Encounter - Luis Carpio RN - 05/26/2017 11:11 AM EST ----- Message from Barbara Josue sent at 05/25/2017 12:08 PM EST ----- Regarding: palomo Fleming from the same day program is looking for labs on Yash. He's there now for his procedure. Last fax said she attached labs but they weren't attached. documented in this encounter Plan of Treatment Upcoming Encounters Date Type Department Care Team (Late st Contact Info) Description 04/15/2024 10:00 AM EDT Hospital Encounter [place] [address] Arrived documented as of this encounter Goals Goal Patient Goal Type Associated Problems Recent Progress Patient-Stated? Author DH Home Medication Compliance and Understanding Patient Facing Action Plan On track( 017 10:41 AM EDT) Selena Scott, [facility] Note: Patient Goal: Clear hepatitis C Timeframe to meet goal: within 12 weeks of therapy documented as of this encounter Visit Diagnoses Not on filedocumented in this encounter Care Teams Elevator Constructor Helper Relationship Specialty Start Date End Date Urbano Denis DO [address] [place] [address] PCP - General 09/03/12 03/17/22 Ruchi Valles RN Nurse Clinic Transplant Surgery 07/30/15 documented as of this encounter
--- OUTSIDE RECORDS SUMMARY | 2024-02-14 11:26 | XMS_ITS | Encounter Summary ---
Author Organization [facility] [place] [address] Care Team Providers Care Archery Equipment Repairer Name Role Phone AdeelUrbano toscano Primary Care Provider [phone] Reason for Visit * Reason Onset Date Comments Medication Refill 12/03/2016 Encounter Details Date Type Department Care Team (Late st Contact Info) Description 12/03/2016 Refill [place] [phone] Samia Escalante, RN Social History Tobacco Use Types Packs/Day [...] AM EDT Hospital Encounter Non-[place] [phone] Arrived documented as of this encounter Goals Goal Patient Goal Type Associated Problems Recent Progress Patient-Stated? Author [facility] Medication Compliance and Understanding Patient Facing Action Plan On track( 017 10:41 AM EDT) No Selena Cisneros, [facility] Note: Patient Goal: Clear hepatitis C Timeframe to meet goal: within 12 weeks of therapy documented as of this encounter Visit Diagnoses Not on filedocumented in this encounter Care Teams Archery Equipment Repairer Relationship Specialty Start Date End Date Urbano Denis DO [address] [place] [address] PCP - General 09/03/12 03/17/22 Ruchi Valles RN Nurse Clinic Transplant Surgery 07/30/15 documented as of this encounter
--- OUTSIDE RECORDS SUMMARY | 2024-02-14 11:26 | XMS_ITS | Encounter Summary ---
[facility] [place] [address] Care Team Providers Care Bell Attendant Name Role Phone Urbano Denis DO Primary Care Provider [phone] Reason for Visit * Reason Comments Skin Lesion * Consultation (Routine) - Closed Specialty Diagnoses / Procedures Referred By Humberto flor Referred To Contact Dermatology Diagnoses Atypical nevus of face Procedures Pt has another appt on 03/18/17 if you can possibly have the same day? Urbano Denis DO [address] [place] [address] [facility] Dermatology [address] [place] [address] Referral ID Status Reason Start Date Expiration Date V isits Requested Visits Authorized [id number] Closed Consult, Test & Treat [facility] 02/25/2017 02/25/2018 1 1 Encounter Details Date Type Department Care Team (Late st Contact Info) Description 03/18/2017 3:00 PM EDT Office Visit Dermatology at [facility] [address] [place] [address] [facility] DR JEAN[place] [address] Rosacea Social History Tobacco Use Types Packs/Day Years [...] as of this encounter Progress Notes * Rahel nOeil, MERCHANDISE EXECUTIVE - 03/18/2017 3:00 PM EDT DERMATOLOGY NEW PATIENT CLINIC NOTE DATE OF SERVICE: 03/18/2017 Cody Bolden : 1950 PROVIDER: Valencia Henley MD REFERRED BY: Urbano Denis For diagnosis and management of: skin lesion PATIENT PREFERENCES: -prefers to be called: Yash -ok to communicate detailed result information by: Mail?: Y Voicemail?: Y and what #: Cell -special considerations: -ok to discuss details of diagnosis and treatment with: Mara updated03/18/2017 Chief Complaint Patient presents with ??? Skin Lesion HPI Cody Bolden is a 66 y.o. year old male. New patient to me. Patient is here for a skin lesion on the right tip of nose Reports the followin.Right tip of nose x 3 years, Pt states that the spot is asymptomatic (What/Where/How bad/How long/Treatment tried/Anything make it better or worse?/Associated symptoms) Other history: Kidney transplant in 09/2015 SKIN HX: none FHX: -skin cancer?: Y/N What type?: Who?: -eczema?: -psoriasis?: -acne?: -rosacea?: SH: ETOH?: TOB?: Sunscreen Use?: Occupation?: Current Outpatient Prescriptions on File Prior to Visit Medication Sig Dispense Refill ??? mycophenolate (CELLCEPT) 250 mg Capsule Take 250 mg twice daily. Kidney transplant 09/16/15. ICDcode Z94.0 60 capsule 11 ??? calciTRIol (ROCALTROL) 0.5 mcg Capsule Take 1 capsule by mouth daily. 90 capsule 3 ??? potassium phosphate, monobasic, (K-PHOS) 500 mg Tablet, Soluble Take 3 tabs at lunch time and 3tabs at bedtime 540 tablet 3 ??? tamsulosin (FLOMAX) 0.4 mg Capsule, Sust. Release 24 hr Take 1 capsule by mouth nightly for 364days. 30 capsule 11 ??? PROGRAF 1 mg Capsule Take 2 capsules in the morning and 1 capsule at night. Kidney transplant 09/16/2015. ICD code Z94.0 270 capsule 3 ??? ascorbic acid, vitamin C, (VITAMIN C) 500 mg Tablet Take 1 tablet by mouth 3 times daily. 30 tablet 3 ??? clopidogrel (PLAVIX) 75 mg Tablet Take 75 mg by mouth daily. ??? Magnesium Gluconate 27 mg (500 mg) Tablet Take 6 tablets at breakfast and at dinner 360 tablet 3 ??? sulfamethoxazole-trimethoprim (BACTRIM;SEPTRA) 400-80 mg Tablet Take 1 tablet by mouth daily. 60 tablet 2 ??? levothyroxine (SYNTHROID) 100 mcg Tablet Take 100 mcg by mouth daily. ??? acetaminophen (TYLENOL) 500 mg Tablet Take 1,000 mg by mouth every 6 hours as needed for Pain. Reported on 09/15/2016 No current facility-administered medications on file prior to visit. No Known Allergies Review of Systems: Feels well, no fatigue, no weight loss, no other skin concerns EXAM General: AAOx3 Well-nourished/Obese/Frail Skin: An exam of the skin from the neck up was performed. This includes examination of the skin of the face, ears, scalp, and neck. DIAGNOSIS/SKIN FINDINGS/ASSESSMENT/PLAN: # Rosacea - nose: Small blood vessels that range between 0.5-1 mm usually seen on the face around the nose, cheeks, and chin - Benign. Patient reassured - No treatment necessary as pt expresses no cosmetic concern - Patient instructed to call with any questions or concerns FOLLOW UP: PRN I am documenting this encounter acting as the scribe for and in the presence of Dr.Roberta Kale Oneil CMA and Duyen Boggs I performed the above scribed service and agree with the accuracy of the documentation in this encounter. Valencia Henley MD Section of Dermatology [facility] Cody Bolden 03/18/2017 [id number] documented in this encounter Plan of Treatment Upcoming Encounters Date Type Department Care Team (Late st Contact Info) Description 04/15/2024 10:00 AM EDT Hospital Encounter Non-[place] [address] Arrived documented as of this encounter Goals Goal Patient Goal Type Associated Problems Recent Progress Patient-Stated? Author DH Home Medication Compliance and Understanding Patient Facing Action Plan On track( 017 10:41 AM EDT) Selnea Scott, [facility] Note: Patient Goal: Clear hepatitis C Timeframe to meet goal: within 12 weeks of therapy documented as of this encounter Visit Diagnoses Diagnosis Rosacea documented in this encounter Care Teams Bell Attendant Relationship Specialty Start Date End Date Urbano Denis DO [address] [place] [address] PCP - General 09/03/12 03/17/22 Ruchi Valles RN Nurse Clinic Transplant Surgery 07/30/15 documented as of this encounter
--- OUTSIDE RECORDS SUMMARY | 2024-02-14 11:26 | XMS_ITS | Encounter Summary ---
Author Organization [facility] [place] [address] Care Team Providers Care Data Clerk Name Role Phone Urbano Denis DO Primary Care Provider Encounter Details Date Type Department Care Team (Latest Contact Info) Description 2017 8:54 PM EST - 2017 11:59 PM EST Hospital [place] [address] Discharge Disposition: Home Social History Tobacco Use [...] Sig Dispensed Refills Start Date End Date tamsulosin (FLOMAX) 0.4 mg Capsule, Sust. Release 24 hr Take 1 capsule by mouth nightly for 364 days. 30 capsule 11 07/30/2017 07/29/2018 calciTRIol (ROCALTROL) 0.5 mcg Capsule TAKE ONE [...] at bedtime 540 tablet 3 12/11/2016 08/19/2017 PROGRAF 1 mg Capsule Take 2 capsules [...] AM EDT Hospital Encounter Non[place] [address] Arrived documented as of this encounter Goals Goal Patient Goal Type Associated Problems Recent Progress Patient-Stated? Author DH Home Medication Compliance and Understanding Patient Facing Action Plan On track( 017 10:41 AM EDT) Selena Scott [facility] Note: Patient Goal: Clear hepatitis C Timeframe to meet goal: within 12 weeks of therapy documented as of this encounter Procedures Procedure Name Priority Date/Time Associated Diagnosis Comments TACROLIMUS LEVEL Routine 2017 3:40 PM EST documented in this encounter Results * Tacrolimus level (2017 3:40 PM EST) Tacrolimus 6.2 ng/mL [facility] Comment: Trough therapeutic: ??5-15 ng/mL Performed by ultra-performance liquid chromatography tandem mass spectrometry (UPLCMS/MS). This test was developed and its performance characteristics determined by [facility]. It has not been cleared or approved by the FDA. The laboratory is regulated under CLIA as qualified to perform high-complexity testing. This test is used for clinical purposes. It should not be regarded as investigational or for research. Blood specimen (specimen) Venous Draw / Unknown 2017 3:40 PM EST 08/19/2017 7:27 AM EST Narrative Resulting Agency Comment Spec In Lab Tal Eagle MD CHEMISTRY ORDERAB LES [facility] [place] [address] documented in this encounter Visit Diagnoses Not on filedocumented in this encounter Care Teams Data Clerk Relationship Specialty Start Date End Date Urbano Denis DO [address] [place] [address] PCP - General 09/03/12 03/17/22 Ruchi Valles RN Nurse Clinic Transplant Surgery 07/30/15 documented as of this encounter
--- OUTSIDE RECORDS SUMMARY | 2024-02-14 11:26 | XMS_ITS | Encounter Summary ---
Author Organization [facility] Address [facility] [place] [address] Care Team Providers Care Motor Builder Assembler Name Role Phone Urbano Denis DO Primary Care Provider [phone] Encounter Details Date Type Department Care Team (Late st Contact Info) Description 12/19/2016 Telephone [place] [address] Herlinda Bell, [facility] [place] [address] Social History Tobacco Use Types Packs/Day Years [...] Miscellaneous Notes * Telephone Encounter - Herlinda Bell, RD - 12/19/2016 11:30 AM EDT This personal lines underwriter reviewed phosphorus-rich foods with patient. He has run out of his phosphorus replacement medication and it will be in in another day or so, but patient's was concerned that his level would go to low. His most recent serum phosphorus level was 3.0, normal range. Expect patient will have no issues with level dropping too low. No further nutrition interventions necessary at this time. documented in this encounter Plan of Treatment Upcoming Encounters Date Type Department Care Team (Late st Contact Info) Description 04/15/2024 10:00 AM EDT Hospital Encounter Non-Invasive [place] [address] Arrived documented as of this encounter Goals Goal Patient Goal Type Associated Problems Recent Progress Patient-Stated? Author DH Home Medication Compliance and Understanding Patient Facing Action Plan On track( 017 10:41 AM EDT) No Selena Cisneros, [facility] Note: Patient Goal: Clear hepatitis C Timeframe to meet goal: within 12 weeks of therapy documented as of this encounter Visit Diagnoses Not on filedocumented in this encounter Care Teams Motor Builder Assembler Relationship Specialty Start Date End Date Urbano Denis DO [address] [place] [address] [address] [facility] [address] [place] [address] PCP - General 09/03/12 03/17/22 Ruchi Valles RN Nurse Clinic Transplant Surgery 07/30/15 documented as of this encounter
--- OUTSIDE RECORDS SUMMARY | 2024-02-14 11:26 | XMS_ITS | Encounter Summary ---
Author Organization [facility] [place] [address] Care Team Providers Care Principal Software Architect Name Role Phone Urbano Denis DO Primary Care Provider Encounter Details Date Type Department Care Team (Late st Contact Info) Description 12/12/2016 Notes Only [place] [address] Anabella Bright Social History Tobacco Use Types [...] encounter Progress Notes * Anabella Bright - 12/12/2016 3:41 PM EDT Transplant Plumbing Drafter Note: Patient had requested Prograf and Cellcept to be ordered to their mail order plan. This triggered a prior auth request that should have been denied, however theletter from expresscripts indicates Medicare part C (medicare advantage). I contacted the patient who confirmed that he does NOT have part C - he has traditional Medicare A and B, supplemental coverage, and part D. I advised that immunos cannot be filled through their mail order plan (Mrs. Masoneferred to this as escripts) due to Medicare rules. Their mail order is part D and immunos post transplant must be processed through part B Medicare and is limited to a 30 day supply per fill. I advised her to contact the Outpatient Pharmacy to request shipment of immunos. She expressed understanding. Addendum: Mrs. Bolden called back - she thought I was in the pharmacy, she didn't realize I was in transplant. She has been in contact with the pharmacy to order Prograf and Cellcept. She was told that the Cellcept script had . I explained that Mick Covarrubias MA was processing therenewal as we spoke. She expressed understanding. I then placed a follow up call to the pharmacy to make sure the Prograf script was on file and it was confirmed that it was on file and will be shipped to the patient on Thursday. Cellcept script will be shipped on Thursday as well once the script is received. documented in this encounter Plan of Treatment Upcoming Encounters Date Type Department Care Team (Late st Contact Info) Description 04/15/2024 10:00 AM EDT Hospital Encounter Non[place] [address] Arrived documented as of this encounter Goals Goal Patient Goal Type Associated Problems Recent Progress Patient-Stated? Author Home Medication Compliance and Understanding Patient Facing Action Plan On track( 017 10:41 AM EDT) No Selena Cisneros, [facility] Note: Patient Goal: Clear hepatitis C Timeframe to meet goal: within 12 weeks of therapy documented as of this encounter Visit Diagnoses Not on filedocumented in this encounter Care Teams Principal Software Architect Relationship Specialty Start Date End Date Urbano Denis DO [address] [place] [address] PCP - General 09/03/12 03/17/22 Ruchi Valles RN Nurse Clinic Transplant Surgery 07/30/15 documented as of this encounter
--- OUTSIDE RECORDS SUMMARY | 2024-02-14 11:26 | XMS_ITS | Encounter Summary ---
Author Organization [facility] [place] [address] Care Team Providers Care Wardrobe Specialist Name Role Phone Urbano Denis DO Primary Care Provider Reason for Visit * Reason Comments Medication Refill Encounter Details Date Type Department Care Team (Late st Contact Info) Description 07/30/2017 Refill [place] [address] Que Amaro MD [facility] [place] [address] Social History Tobacco Use Types Packs/Day Years [...] EDT Hospital Encounter Non-Invasive [place] [address] Arrived documented as of this encounter Goals [...] on filedocumented in this encounter Care Teams Wardrobe Specialist Relationship Specialty Start Date End Date Urbano Denis DO [address] [place] [address] PCP - General 09/03/12 03/17/22 Ruchi Valles RN Nurse Clinic Transplant Surgery 07/30/15 documented as of this encounter
--- OUTSIDE RECORDS SUMMARY | 2024-02-14 11:26 | XMS_ITS | Encounter Summary ---
Author Organization [facility] [place] [address] Care Team Providers Care Boatbuilder Apprentice Wood Name Role Phone Urbano Denis DO Primary Care Provider [phone] Encounter Details Date Type Department Care Team (Latest Contact Info) Description 03/18/2017 9:20 AM EDT Laboratory Appointment Lab [address] [place] [phone] Kidney replaced by transplant Social History Tobacco [...] AM EDT Hospital Encounter [place] [phone] Arrived documented as of this encounter Goals Goal Patient Goal Type Associated Problems Recent Progress Patient-Stated? Author [facility] Medication Compliance and Understanding Patient Facing Action Plan On track( 017 10:41 AM EDT) No Selena Cisneros [facility] Note: Patient Goal: Clear hepatitis C Timeframe to meet goal: within 12 weeks of therapy documented as of this encounter Procedures Procedure Name Priority Date/Time Associated Diagnosis Comments PROTEIN/CREATININE RATIO, URINE STAT 03/18/2017 9:38 AM EDT Kidney replaced by transplant URINALYSIS WITH REFLEX CULTURE STAT 03/18/2017 9:38 AM EDT Kidney replaced by transplant BKV QUANT BLOOD STAT 03/18/2017 9:36 AM EDT Kidney replaced by transplant HEMOGRAM STAT 03/18/2017 9:36 AM EDT Kidney replaced by transplant DIFFERENTIAL, AUTOMATED STAT 03/18/2017 9:36 AM EDT Kidney replaced by transplant GOLD TUBE HOLD STAT 03/18/2017 9:36 AM EDT Kidney replaced by transplant LAVENDER TUBE HOLD STAT 03/18/2017 9: 36 AM EDT Kidney replaced by transplant TACROLIMUS LEVEL STAT 03/18/2017 9:36 AM EDT Kidney replaced by transplant RETICULOCYTE COUNT STAT 03/18/2017 9: 36 AM EDT Kidney replaced by transplant CBC (WITH DIFF) STAT 03/18/2017 9:36 AM EDT Kidney replaced by transplant URIC ACID STAT 03/18/2017 9:36 AM EDT Kidney replaced by transplant PHOSPHORUS STAT 03/18/2017 9:36 AM EDT Kidney replaced by transplant MAGNESIUM STAT 03/18/2017 9:36 AM EDT Kidney replaced by transplant CHOLESTEROL, TOTAL STAT 03/18/2017 9: 36 AM EDT Kidney replaced by transplant COMPREHENSIVE METABOLIC PANEL STAT 03/18/2017 9:36 AM EDT Kidney replaced by transplant documented in this encounter Results * (ABNORMAL) Urinalysis with reflex Culture (03/18/2017 9:38 AM EDT) Glucose, Urine Dipstick Negative Negative mg/dL [facility] Protein, Urine Dipstick 30(A) Negative mg/dL [facility] Bilirubin, Urine Dipstick Negative Negative mg/dL [facility] Comment: Clinical correlation required for positive Urine Bilirubin results as false positive may occur with some drugs and drug related products. If a false positive is suspected a serum total bilirubin should be considered if clinically indicated. Urobilinogen, Urine Dipstick 2.0(A) Normal mg/dL [facility] pH, Urn (dipstick) 6.0 5.0 - 8.0 [facility] Blood, Urine Dipstick Negative Negative mg/dL [facility] Ketone, Urine Dipstick Negative Negative mg/dL [facility] Nitrite, Urine Dipstick Negative Negative [facility] Leukocytes, Urine Dipstick Negative Negative mcL [facility] Appearance, Urine Dipstick Clear Clear [facility] Specific [place] Urine Automated 1.026 1.002 - 1.030 [facility] Color, Urine Dipstick Yellow Yellow [facility] RBC, Urine 2 0 - 3 /HPF [facility] WBC, Urine Not Present 0 - 3 /HPF [facility] Bacteria, Urine Rare(A) None /HPF [facility] Reflex to Culture No [facility] Urine specimen obtained by clean catch procedure (specimen) 03/18/2017 9:38 AM EDT 03/18/2017 9:52 AM EDT Narrative Resulting Agency Comment Spec In Lab Tal Eagle MD URINE ORDERABLES [facility] [place] [address] * (ABNORMAL) Protein/Creatinine Ratio, urine (03/18/2017 9:38 AM EDT) Creatinine, Urine 154 mg/dL [facility] Protein, Urine 32(H) 0 - 12 mg/dL [facility] Protein / Creatinine Ratio, Urine 0.[address] [facility] Urine specimen (specimen) 03/18/2017 9:38 AM EDT 03/18/2017 9:51 AM EDT Narrative Resulting Agency Comment Spec In Lab Tal Eagle MD URINE ORDERABLES [facility] [place] [address] * Differential, Automated (03/18/2017 9:36 AM EDT) Neutrophil % 59.8 % [facility] Neutrophil Absolute 4.57 1.70 - 6.10 x10(3)/[facility] Lymph % 26.6 % [facility] Lymphocytes Abs 2.0 0.9 - 3.2 x10(3)/[facility] Monocyte % 8.2 % [facility] Monocyte Abs 0.6 0.3 - 0.9 x10(3)/[facility] Eos % 3.8 % [facility] Eosinophils Abs 0.3 0.0 - 0.4 x10(3)/[facility] Basophil % 1.2 % [facility] Baso Absolute 0.1 0.0 - 0.1 x10(3)/[facility] Immature Gran % 0.40 % [facility] Comment: Immature granulocytes(IG's)percentage and absolute count will include metamyelocytes, myelocytes, and promyelocytes. Blood smears from CBCs yielding IG's will be scanned manually for concordance. If this scan disagrees with the automated IG or if promyelocytes are noted, a manual differential will be performed. Immature Gran Absolute 0.03 0.00 - 0.04 x10(3)/[facility] Blood specimen (specimen) 03/18/2017 9:36 AM EDT 03/18/2017 9:46 AM EDT Narrative Resulting Agency Comment Spec In Lab Tal Eagle MD HEMATOLOGY ORDERA BLES Performing Organization Address City/[facility]/ZIP Co de Phone Number [facility] [place] [address] * (ABNORMAL) Hemogram (03/18/2017 9:36 AM EDT) White Blood Cell 7.6 4.0 - 9.5 x10(3)/[facility] Red Blood Cell 5.42 4.58 - 5.54 x10(6)/[facility] Hemoglobin 17.1(H) 13.7 - 16.5 gm/dL [facility] Hematocrit 48.9(H) 40.5 - 48.5 % [facility] Mean Cell Volume 90.2 82.9 - 93.1 [facility] Mean Cell Hemoglobin 31.5 27.5 - 32.[address] [facility] Mean Cell Hemoglobin Concentration 35.0 32.0 - 35.7 gm/dL [facility] Platelet 255 145 - 357 x10(3)/ L [facility] RDW Standard Deviation 42.0 36.0 - 45.0 [facility] RDW coefficient of variation 12.9 11.4 - 13.8 % [facility] Mean Platelet Volume 9.7 7.6 - 12.9 [facility] NRBC% auto 0.0 % [facility] NRBC Absolute 0.000 0.000 - 0.000 x10(3)/[facility] Blood specimen (specimen) 03/18/2017 9:36 AM EDT 03/18/2017 9:46 AM EDT Narrative Resulting Agency Comment Spec In Lab Tal Eagle MD HEMATOLOGY ORDERA BLES [facility] [place] [address] * Gold Tube HOLD (03/18/2017 9:36 AM EDT) Gold Hold Sample in lab. [facility] Blood specimen (specimen) 03/18/2017 9:36 AM EDT 03/18/2017 9:46 AM EDT Tal Eagle MD CHEMISTRY ORDERAB LES Performing Organization Address City/[facility]/ZIP Co de Phone Number [facility] [place] [address] * Lavender Tube HOLD (03/18/2017 9:36 AM EDT) Lavender Hold Sample in lab. [facility] Blood specimen (specimen) 03/18/2017 9:36 AM EDT 03/18/2017 9:46 AM EDT Tal Eagle MD HEMATOLOGY ORDERA BLES Performing Organization Address [facility]/ZIP Co de Phone Number [facility] [place] [address] * (ABNORMAL) Uric acid (03/18/2017 9:36 AM EDT) Uric Acid 9.3(H) 3.5 - 8.5 mg/dL [facility] Blood specimen (specimen) 03/18/2017 9:36 AM EDT 03/18/2017 9:46 AM EDT Narrative Resulting Agency Comment Spec In Lab Tal Eagle MD CHEMISTRY ORDERAB LES Performing Organization Address City/[facility]/ZIP Co de Phone Number [facility] [place] [address] * Tacrolimus level (03/18/2017 9:36 AM EDT) Tacrolimus 4.4 ng/mL [facility] Comment: Trough therapeutic: ??5-15 ng/mL Performed by ultra-performance liquid chromatography tandem mass spectrometry (UPLCMS/MS). This test was developed and its performance characteristics determined by [facility]. It has not been cleared or approved by the FDA. The laboratory is regulated under CLIA as qualified to perform high-complexity testing. This test is used for clinical purposes. It should not be regarded as investigational or for research. Blood specimen (specimen) 03/18/2017 9:36 AM EDT 03/18/2017 11:16 AM EDT Narrative Resulting Agency Comment Spec In Lab Tal Eagle MD CHEMISTRY ORDERAB LES Performing Organization Address [facility] Co de Phone Number [facility] [place] [address] * Reticulocyte Count (03/18/2017 9:36 AM EDT) Reticulocyte % 2.0 0.7 - 2.6 % [facility] Retic Abs # 0.110 0.030 - 0.120 x10(6)/mcL [facility] Immature Retic% 11.0 0.0 - 15.6 % [facility] Reticulated Hgb 36.1 31.3 - 40.[address] [facility] Blood specimen (specimen) 03/18/2017 9:36 AM EDT 03/18/2017 9:46 AM EDT Narrative Resulting Agency Comment Spec In Lab Tal Eagle MD HEMATOLOGY ORDERA BLES Performing Organization Address City/[facility]/ZIP Co de Phone Number [facility] [place] [address] * Phosphorus (03/18/2017 9:36 AM EDT) Phosphorus 2.6 2.5 - 4.5 mg/dL [facility] Blood specimen (specimen) 03/18/2017 9:36 AM EDT 03/18/2017 9:46 AM EDT Narrative Resulting Agency Comment Spec In Lab Tal Eagle MD CHEMISTRY ORDERAB LES Performing Organization Address City/[facility]/ZIP Co de Phone Number [facility] [place] [address] * Magnesium (03/18/2017 9:36 AM EDT) [facility] Magnesium 0.77 0.69 - 1.07 mmol/L [facility] Blood specimen (specimen) 03/18/2017 9:36 AM EDT 03/18/2017 9:46 AM EDT Narrative Resulting Agency Comment Spec In Lab Tal Eagle MD CHEMISTRY ORDERAB LES Performing Organization Address [facility] Co de Phone Number [facility] [place] [address] * (ABNORMAL) Comprehensive metabolic panel (non-fasting) (03/18/2017 9:36 AM EDT) [facility] Glucose 116 65 - 199 mg/dL [facility] Comment:Diabetes: >=200 mg/d L plus symptoms Blood Urea Nitrogen 27(H) 10 - 20 mg/dL [facility] Creatinine 1.52(H) 0.80 - 1.50 mg/dL [facility] Comment: Please note that the pediatric reference intervals supplied above were not validated at [facility]. Results from pediatric patients should be interpreted in conjunction to the patient's age, height and muscle mass. Sodium 141 135 - 145 mmol/L [facility] Potassium 3.9 3.5 - 5.0 mmol/L [facility] Comment: Please note: ??Patients with WBC >100,000 may have falsely elevated Potassium levels. ??For accurate Potassium quantification in these patients send serum separator tube (gold top) for subsequent determinations. ??Contact the Clinical Chemistry Laboratory if there are any questions. Chloride 101 98 - 107 mmol/L [facility] Carbon Dioxide 27 22 - 31 mmol/L [facility] Anion Gap 13 5 - 15 mmol/L [facility] Calcium 9.8 8.5 - 10.5 mg/dL [facility] Protein, Total 7.7 6.1 - 8.0 gm/dL [facility] Albumin 4.3 3.2 - 5.2 gm/dL [facility] Aspartate Aminotransferase 17 0 - 39 unit/L [facility] Alanine Aminotransferase 17 0 - 55 unit/L [facility] Alkaline Phosphatase 65 40 - 120 unit/L [facility] Bilirubin, Total 2.4(H) 0.2 - 1.3 mg/dL [facility] Est Glomerular Filtration Rate 46(L) >=60 [facility] Comment: This estimated GFR (eGFR) value was calculated using the MDRD equation which has been validated on patients between the ages of 18 and 70. The MDRD should not be used to assess kidney function in patients < 18 years of age or in patients with extremes of body mass, or in patients with acute kidney failure. This value should be multiplied by 1.2 for patients. For further information please copy and paste the following links into your internet browser. [email or web address] Blood specimen (specimen) 03/18/2017 9:36 AM EDT 03/18/2017 9:46 AM EDT Narrative Resulting Agency Comment Spec In Lab Tal Eagle MD CHEMISTRY ORDERAB LES [facility] [place] [address] * Cholesterol, total (03/18/2017 9:36 AM EDT) Cholesterol, Total 150 <=239 mg/dL [facility] Lipid Interpretation See Note [facility] Comment: Lipid management should be guided by a patient? s ASCVD risk, goals and preferences. ACC/AHA Guidelines recommend high intensity statin if clinical ASCVD or LDL greater than or equal to 190 mg/dL. [email or web address] Adults aged 40-75 with LDL 70-189 mg/dL should have their 10 year ASCVD risk estimated with the ACC/AHA ASCVD risk safety fire boss http://tools.acc.org/WZNBY-Svhp-Nkewubchy/ Statin should be discussed if risk greater [...] of ASCVD risk reduction. Blood specimen (specimen) 03/18/2017 9:36 AM EDT 03/18/2017 9:46 AM EDT Narrative Resulting Agency Comment Spec In Lab Tal Eagle MD CHEMISTRY ORDERAB LES [facility] [place] [address] * BKV Quant Blood (03/18/2017 9:36 AM EDT) BKV Blood Result Not Detected [facility] BKV Blood Interp BK Virus Plasma Result Interpretation Result: BK Virus not detected Specimen type: plasma Assay Range: 2.83-8.83 log copies/mL (6.8x10^2 - 6.8x10^8 copies/mL) Methods: Quantitative real-time polymerase chain reaction (PCR) of viral DNA isolated from plasma was performed using [employer] (formerly, [employer]) BKV analyte-specific reagents and the Applied Dapt 7500 FAST Real-Time PCR System. In addition, [...] its performance characteristics determined by the Clinical [employer] ([facility]) Laboratory at [facility]. It has not been cleared or approved by the FDA. The laboratory is regulated under CLIA as qualified to perform high-complexity testing. This test is used for clinical purposes. It should not be regarded as investigational or for research. [facility] Comment: [VERIFIED DATE]03.26.17 Verified By:Bryan Hernandez, Sreedhar Bell Molecular Pathologist (Electronic Signature) Blood specimen (specimen) 03/18/2017 9:36 AM EDT 03/18/2017 10:31 AM EDT Narrative Resulting Agency Comment Spec In Lab Tal Eagle MD MOLECULAR ORDERAB LES [facility] [place] [address] documented in this encounter Visit Diagnoses Diagnosis Kidney replaced by transplant documented in this encounter Care Teams Boatbuilder Apprentice Wood Relationship Specialty Start Date End Date Urbano Denis DO [address] [place] [address] PCP - General 09/03/12 03/17/22 Ruchi Valles RN Nurse Clinic Transplant Surgery 07/30/15 documented as of this encounter
--- OUTSIDE RECORDS SUMMARY | 2024-02-14 11:26 | XMS_ITS | Encounter Summary ---
Author Organization [facility] [place] [address] Care Team Providers Care Acoustical Installer Name Role Phone AdeelUrbano boland Primary Care Provider Encounter Details Date Type Department Care Team (Late st Contact Info) Description 12/11/2016 Notes Only [place] [address] Jaonne Nogueira CMA Social History Tobacco Use Types Packs/Day Years [...] as of this encounter Progress Notes * Joanne Nogueira CMA - 12/11/2016 10:39 AM EDT Patient's requested PA for Mycophenolate through [employer] PA Needed: ?? Medication: MYCOPHENOLATE 250MG BID ?? Insurance: [employer] ?? Phone: ?? Mincing Machine Operator: [employer] ?? Reference #: [id number] ?? Outcome: DENIED documented in this encounter Plan of Treatment Upcoming Encounters Date Type Department Care Team (Late st Contact Info) Description 04/15/2024 10:00 AM EDT Hospital Encounter Non[place] [address] Arrived documented as of this [...] on filedocumented in this encounter Care Teams Acoustical Installer Relationship Specialty Start Date End Date Urbano Denis DO [facility] [address] [facility] [address] [place] [address] PCP - General 09/03/12 03/17/22 Ruchi Valles RN Nurse Clinic Transplant Surgery 07/30/15 documented as of this encounter
--- OUTSIDE RECORDS SUMMARY | 2024-02-14 11:26 | XMS_ITS | Encounter Summary ---
[place] [address] Care Team Providers Care Fuel Truck Driver Name Role Phone Urbano Denis DO Primary Care Provider Encounter Details Date Type Department Care Team (Latest Contact Info) Description 12/18/2016 8:36 PM EDT - 12/18/2016 11:59 PM EDT [place] [address] Discharge Disposition: Home Social History Tobacco Use [...] Sig Dispensed Refills Start Date End Date mycophenolate (CELLCEPT) 250 mg Capsule Take 250 [...] 364 days. 30 capsule 11 12/11/2016 07/30/2017 tacrolimus (PROGRAF) 1 mg Capsule Take 2 capsules in the morning and 1 in the evening. Kidney transplant 09/16/2015. ICD code Z94.0 270 capsule 3 12/11/2016 03/18/2017 PROGRAF 1 mg Capsule Take 2 capsules [...] at dinner 360 tablet 3 05/28/2016 09/09/2017 sulfamethoxazole-trim ethoprim (BACTRIM;SEPTRA) 400-80 mg Tablet Take 1 tablet by mouth daily. 60 tablet 2 05/28/2016 03/25/2017 levothyroxine (SYNTHROID) 100 mcg Tablet Take 100 [...] Hospital Encounter Non[place] [address] Arrived documented as of this encounter Goals Goal Patient Goal Type Associated Problems Recent Progress Patient-Stated? Author [facility] Home Medication Compliance and Understanding Patient Facing Action Plan On track( 017 10:41 AM EDT) Selena Scott, [facility] Note: Patient Goal: Clear hepatitis C Timeframe to meet goal: within 12 weeks of therapy documented as of this encounter Procedures Procedure Name Priority Date/Time Associated Diagnosis Comments LAVENDER TUBE HOLD Routine 12/18/2016 1: 58 PM EDT TACROLIMUS LEVEL Routine 12/18/2016 1:58 PM EDT documented in this encounter Results * Lavender Tube HOLD (12/18/2016 1:58 PM EDT) Lavender Hold Sample in lab. [facility] Blood specimen (specimen) Venous Draw / Unknown 12/18/2016 1:58 PM EDT 12/18/2016 9:10 PM EDT Tal Eagle MD HEMATOLOGY ORDERA BLES Performing Organization Address [facility] Co de Phone Number [facility] [place] [address] * Tacrolimus level (12/18/2016 1:58 PM EDT) Tacrolimus 5.9 ng/mL [facility] Comment: Trough therapeutic: ??5-15 ng/mL Performed by ultra-performance liquid chromatography tandem mass spectrometry (UPLCMS/MS). This test was developed and its performance characteristics determined by [facility]. It has not been cleared or approved by the FDA. The laboratory is regulated under CLIA as qualified to perform high-complexity testing. This test is used for clinical purposes. It should not be regarded as investigational or for research. Blood specimen (specimen) Venous Draw / Unknown 12/18/2016 1:58 PM EDT 12/19/2016 7:28 AM EDT Narrative Resulting Agency Comment Spec In Lab Tal Eagle MD CHEMISTRY ORDERAB LES Performing Organization Address City/[facility]/ZIP Co de Phone Number [facility] [place] [address] documented in this encounter Visit Diagnoses Not on filedocumented in this encounter Care Teams Fuel Truck Driver Relationship Specialty Start Date End Date Urbano Denis DO [address] [place] [address] PCP - General 09/03/12 03/17/22 Hai STANLEY,Ruchi Nurse Clinic Transplant Surgery 07/30/15 documented as of this encounter
--- OUTSIDE RECORDS SUMMARY | 2024-02-14 11:26 | XMS_ITS | Encounter Summary ---
Author Organization [facility] [place] [address] Care Team Providers Care Hot Air Furnace Installer And Repairer Name Role Phone Urbano Denis DO Primary Care Provider Reason for Visit * Reason Comments Medication Refill Encounter Details Date Type Department Care Team (Late st Contact Info) Description 11/29/2016 Refill [place] [address] Que Amaro MD [facility] [address] [place] [address] Social History Tobacco Use Types Packs/Day Years [...] AM EDT Hospital Encounter [place] [address] Arrived documented as of this encounter Goals [...] on filedocumented in this encounter Care Teams Hot Air Furnace Installer And Repairer Relationship Specialty Start Date End Date Urbano Denis DO [address] [place] [address] PCP - General 09/03/12 03/17/22 Ruchi Valles RN Nurse Clinic Transplant Surgery 07/30/15 documented as of this encounter
--- OUTSIDE RECORDS SUMMARY | 2024-02-14 11:26 | XMS_ITS | Encounter Summary ---
Author Organization [facility] [place] [address] Care Team Providers Care Senior Account Manager Name Role Phone Urbano Denis DO Primary Care Provider Encounter Details Date Type Department Care Team (Late st Contact Info) Description 12/11/2016 Telephone [place] [address] Joanne Nogueira CMA Social History Tobacco Use Types [...] Telephone Encounter - Joanne Nogueira CMA - 12/11/2016 10:36 AM EDT PA Needed: ?? Medication: PROGRAF 1MG ?? Insurance: [employer] ?? Phone: ?? Aerial Installer: [employer] ?? Reference #: [id number] ?? Outcome: PENDING * Telephone Encounter - Joanne Nogueira CMA - 12/11/2016 8:52 AM EDT Spoke with PA staff. Bello Code MPYMLF For Prograf. Bello code GGLERQ for Mycophenolate. To be completed on covermymeds. documented in this encounter Plan of Treatment Upcoming Encounters Date Type Department Care Team (Late st Contact Info) Description 04/15/2024 10:00 AM EDT Hospital Encounter [place] [address] Arrived documented as of this encounter Goals Goal Patient Goal Type Associated Problems Recent Progress Patient-Stated? Author DH Home Medication Compliance and Understanding Patient Facing Action Plan On track( 017 10:41 AM EDT) Selena Scott, [facility] Note: Patient Goal: Clear hepatitis C Timeframe to meet goal: within 12 weeks of therapy documented as of this encounter Visit Diagnoses Not on filedocumented in this encounter Care Teams Senior Account Manager Relationship Specialty Start Date End Date Urbano Denis DO [address] [place] [address] PCP - General 09/03/12 03/17/22 Ruchi Valles RN Nurse Clinic Transplant Surgery 07/30/15 documented as of this encounter
--- OUTSIDE RECORDS SUMMARY | 2024-02-14 11:26 | XMS_ITS | Encounter Summary ---
Author Organization [facility] Address [facility] [place] [address] Care Team Providers Care Senior Corporate Accountant Name Role Phone Urbano Denis DO Primary Care Provider [phone] Encounter Details Date Type Department Care Team (Late st Contact Info) Description 06/24/2017 Telephone [place] [address] [facility] [address] [place] [address] Social History Tobacco Use Types Packs/Day Years [...] Miscellaneous Notes * Telephone Encounter - Herlinda Bell RD - 06/24/2017 9:54 AM EST This scenario writer attempted to contact this patient in order to further review phosphorus-rich foods and drinks. Left a message at home phone. Patient's was already contacted by one of our nurse coordinators, but this scenario writer mailed the lists of foods and drinks to patient as well. Remain available for any questions/concerns. documented in this encounter Plan of Treatment Upcoming Encounters Date Type Department Care Team (Late st Contact Info) Description 04/15/2024 10:00 AM EDT Hospital Encounter [place] [address] Arrived documented as of this encounter Goals [...] filedocumented in this encounter Care Teams Senior Corporate Accountant Relationship Specialty Start Date End Date Urbano Denis DO [address] [place] [address] PCP - General 09/03/12 03/17/22 Ruchi Valles RN Nurse Clinic Transplant Surgery 07/30/15 documented as of this encounter
--- OUTSIDE RECORDS SUMMARY | 2024-02-14 11:26 | XMS_ITS | Encounter Summary ---
Author Organization [facility] [place] [address] Care Team Providers Care Joint Finisher Name Role Phone Urbano Denis DO Primary Care Provider Encounter Details Date Type Department Care Team (Late st Contact Info) Description 01/14/2017 Telephone Solid [place] [phone] Joanne Nogueira CMA Social History Tobacco Use [...] Telephone Encounter - Joanne Nogueira CMA - 01/14/2017 2:57 PM EDT Left message on ID v/m confirming call in of tamosulin 90 day supply to [facility] * Telephone Encounter - Joanne Nogueira CMA - 01/14/2017 2:46 PM EDT Spoke with pharmacy staff, Blanca, relayed provided provider information, patient information, requested 90 day supply of tamosulin 0.4 mg with 3 refills, confirmed dose Invoice # [id number] * Telephone Encounter - Joanne Nogueira CMA - 01/14/2017 2:42 PM EDT Left message on refill request line asking for 90 day supply of tamsulosin 0.4mg be called into [facility]. documented in this encounter Plan of Treatment Upcoming Encounters Date Type Department Care Team (Late st Contact Info) Description 04/15/2024 10:00 AM EDT Hospital Encounter Non[place] [address] Arrived documented as of this encounter Goals [...] on filedocumented in this encounter Care Teams Joint Finisher Relationship Specialty Start Date End Date Urbano Denis DO [address] [facility] [address] [place] [address] PCP - General 09/03/12 03/17/22 Ruchi Valles RN Nurse Clinic Transplant Surgery 07/30/15 documented as of this encounter
--- OUTSIDE RECORDS SUMMARY | 2024-02-14 11:26 | XMS_ITS | Encounter Summary ---
[place] [address] Care Team Providers Care Cranberry Grower Name Role Phone Urbano Denis DO Primary Care Provider Encounter Details Date Type Department Care Team (Latest Contact Info) Description 01/15/2017 8:31 PM EDT - 01/15/2017 11:59 PM EDT Hospital [place] [address] Discharge Disposition: Home Social History Tobacco Use [...] AM EDT Hospital Encounter Non-Invasive [place] [address] Arrived documented as of this encounter Goals [...] Date/Time Associated Diagnosis Comments TACROLIMUS LEVEL Routine 01/15/2017 11:2 0 AM EDT documented in this encounter Results * Tacrolimus level (01/15/2017 11:20 AM EDT) Tacrolimus 8.1 ng/mL [facility] Comment: Trough therapeutic: ??5-15 ng/mL Performed by ultra-performance liquid chromatography tandem mass spectrometry (UPLCMS/MS). This test was developed and its performance characteristics determined by [facility]. It has not been cleared or approved by the FDA. The laboratory is regulated under CLIA as qualified to perform high-complexity testing. This test is used for clinical purposes. It should not be regarded as investigational or for research. Blood specimen (specimen) Venous Draw / Unknown 01/15/2017 11:20 AM EDT 01/16/2017 7:26 AM EDT Narrative Resulting Agency Comment Spec In Lab Tal Eagle MD CHEMISTRY ORDERAB LES [facility] [place] [address] documented in this encounter Visit Diagnoses Not on filedocumented in this encounter Care Teams Cranberry Grower Relationship Specialty Start Date End Date Urbano Denis DO [address] [place] [address] PCP - General 09/03/12 03/17/22 Ruchi Valles RN Nurse Clinic Transplant Surgery 07/30/15 documented as of this encounter
--- OUTSIDE RECORDS SUMMARY | 2024-02-14 11:26 | XMS_ITS | Encounter Summary ---
[place] [address] Care Team Providers Care Tank Cleaning Supervisor Name Role Phone Urbano Denis DO Primary Care Provider Encounter Details Date Type Department Care Team (Late st Contact Info) Description 06/16/2017 Telephone [place] [phone] Margarette Kuhn, RN Social History Tobacco Use Types Packs/Day [...] encounter Miscellaneous Notes * Telephone Encounter - Margarette Scott RN - 06/16/2017 3:38 PM EST Returned Mara's call about inability to get k-phos. Explained the situation and that Yash should increase dietary intake of dairy until they hear from Dietitian. Mara reports understanding and awaits Herlinda's call. documented in this encounter Plan of Treatment Upcoming Encounters Date Type Department Care Team (Late st Contact Info) Description 04/15/2024 10:00 AM EDT Hospital Encounter [place] [address] Arrived documented as of this encounter Goals [...] on filedocumented in this encounter Care Teams Tank Cleaning Supervisor Relationship Specialty Start Date End Date Urbano Denis DO [address] [place] [address] [address] [facility] [address] [place] [address] PCP - General 09/03/12 03/17/22 Ruchi Valles RN Nurse Clinic Transplant Surgery 07/30/15 documented as of this encounter
--- OUTSIDE RECORDS SUMMARY | 2024-02-14 11:26 | XMS_ITS | Encounter Summary ---
Author Organization [facility] Address [facility] [place] [address] Care Team Providers Care Career Technical Education Instructor Name Role Phone AdeelUrbano boland Primary Care Provider [phone] Encounter Details Date Type Department Care Team (Latest Contact Info) Description 06/04/2017 - 06/04/2017 11:59 PM EST Hospital Encounter [place] [address] Breezy Dale MD [facility] [place] [address] Discharge Disposition: Home Social History Tobacco Use [...] AM EDT Hospital Encounter Non-Invasive [place] [address] Arrived documented as of this encounter Goals [...] Diagnosis Comments FILM LIBRARY STORAGE ONLY DX KNEE Routine 06/04/2017 12:00 AM EST documented in this encounter Results * Film Library- Storage Only DX Knee (06/04/2017 12:00 AM EST) Narrative ARIEL RAD - 09/16/2017 9:57 AM EDT This exam is for storage only and is auto-finalizing. Breezy Dale MD IMG FILM LIBRARY OR DERABLES Performing Organization Address City/State/[facility] Co de Phone Number [place], [place] documented in this encounter Visit Diagnoses Not on filedocumented in this encounter Care Teams Career Technical Education Instructor Relationship Specialty Start Date End Date Urbano Denis DO [address] [place] [address] PCP - General 09/03/12 03/17/22 Ruchi Valles RN Nurse Clinic Transplant Surgery 07/30/15 documented as of this encounter
--- OUTSIDE RECORDS SUMMARY | 2024-02-14 11:26 | XMS_ITS | Encounter Summary ---
Author Organization [facility] [place] [address] Care Team Providers Care Liner Installer Name Role Phone Adeel Urbano KIRBY Primary Care Provider Encounter Details Date Type Department Care Team (Late st Contact Info) Description 03/04/2017 Abstract [place] [address] [address] Social History Tobacco Use Types Packs/Day Years [...] Encounter Non-Invasive [place] [address] Arrived documented as of this encounter Goals [...] on filedocumented in this encounter Care Teams Liner Installer Relationship Specialty Start Date End Date Urbano Denis DO [address] [place], [place] [address]Y [facility] [address] [place] [address] PCP - General 09/03/12 03/17/22 Ruchi Valles RN Nurse Clinic Transplant Surgery 07/30/15 documented as of this encounter
--- OUTSIDE RECORDS SUMMARY | 2024-02-14 11:26 | XMS_ITS | Encounter Summary ---
Author Organization [facility] Address [facility] [place] [address] Care Team Providers Care Die Sinker Name Role Phone Adeel Urbano KIRBY Primary Care Provider [phone] Reason for Visit * Reason Comments Kidney Transplant Follow-up Immunotherapy Encounter Details Date Type Department Care Team (Latest Contact Info) Description 03/18/2017 10:20 AM EDT Office Visit [place] [address] Tal Eagle MD [facility] [place] [address] Kidney replaced by transplant; Aftercare following organ transplant; Prophylactic immunotherapy [...] Sign Reading Time Taken Comments Blood Pressure 136/73 03/18/2017 10:17 AM EDT Pulse 59 03/18/2017 10:17 AM EDT Temperature 36.5 ??C (97.7 ??F) 03/18/2017 1 0:17 AM EDT Respiratory Rate 12 03/18/2017 10:1 7 AM EDT Oxygen Saturation 95% 03/18/2017 10: 17 AM EDT Inhaled Oxygen Concentration - - Weight 100.3 kg (221 lb 3.2 oz) 017 10:17 AM EDT Height - - Body Mass Index 31.74 09/15/2016 10:34 AM EDT documented in this encounter Progress Notes * Joanne Nogueira CMA - 03/18/2017 10:20 AM EDT Confirmed patient's last name and Reviewed tobacco use, all allergies and meds, dose and frequency. Need to clarify Janay-G dose, missed one dose of Prograf last week, otherwise, rarely misses does. No additional OTC meds, nutritional or herbal supplements. Reviewed education tab. Reviewed immunizations UTD. Leg fatigue, doing a lot of physical work around the house, feels great * Tal Eagle MD - 03/18/2017 10:20 AM EDT [facility] Transplant Nephrology Follow Up ? Date: 03/18/2017 Patient: Ethel Akins Transplant Date: 09/16/2015 ?? Transplant organ/Indication: Kidney / DM, HTN ?? History of Present Illness: 66 y.o. male w/ hx of HCV, DM, HTN who is s/p donor kidney transplant 09/16/15. 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 Previous Tx Hx: 0% PRA. Patient given Basliximab for induction. EBV +/+, CMV +/+; Rx post tx with Harvoni for hepC and he has cleared the infection. ? Interim Hx: Patient drinks 2L fluids/day. He feels great and has no signs or symptoms of graft dysfunction or urinary tract symptoms. He states he is nearly at 95% of normal! ?? Healthcare maintenance for a transplant recipient: ?? Immunizations (no live virus or modified bacterial vaccines) Prevnar 13 once in a lifetime Pneumovax 23 every 5 years Tdap every 10 years Annual flu shot Annual PCP exam Annual CASEY and PSA [...] for diabetics, every 5 for non diabetics [place] kidney ultrasound looking for renal cell CA, every 5 years post transplant Bone density assessment every 9-12 years post transplant Annual fasting lipid profile Annual PTH-Vit D3 assessment until normalized Annual 24 hour timed urine for creatinine, protein, calcium, phosphate, magnesium ?? ROS: Denies fevers, chills, nausea, vomiting, diarrhea, abd pain, chest pain, sob. No other positives ornegatives. ?? Medications: Current Outpatient Prescriptions: ??? mycophenolate (CELLCEPT) 250 mg Capsule, Take 250 mg twice daily. Kidney transplant 09/16/15. ICD code Z94.0, Disp: 60 capsule, Rfl: 11 ??? calciTRIol (ROCALTROL) 0.5 mcg Capsule, Take 1 capsule by mouth daily., Disp: 90 capsule, Rfl: 3 ??? potassium phosphate, monobasic, (K-PHOS) 500 mg Tablet, Soluble, Take 3 tabs at lunch time and 3 tabs at bedtime, Disp: 540 tablet, Rfl: 3 ??? tamsulosin (FLOMAX) 0.4 mg Capsule, Sust. Release 24 hr, Take 1 capsule by mouth nightly for 364 days., Disp: 30 capsule, Rfl: 11 ??? PROGRAF 1 mg Capsule, Take 2 [...] by mouth daily., Disp: , Rfl: ??? levothyroxine (SYNTHROID) 100 mcg Tablet, Take 100 mcg by mouth daily., Disp: , Rfl: ??? acetaminophen (TYLENOL) 500 mg Tablet, Take 1,000 mg by mouth every 6 hours as needed for Pain.Reported on 09/15/2016, Disp: , Rfl: ??? sulfamethoxazole-trimethoprim (BACTRIM;SEPTRA) 400-80 mg Tablet, Take 1 tablet by mouth daily.,Disp: 90 tablet, Rfl: 3 ??? Magnesium Gluconate 27 mg (500 mg) Tablet, Take 6 tablets at breakfast and at dinner, Disp: 360tablet, Rfl: 3 ?? Allergies / ADRs: No Known Allergies ?? PHYSICAL EXAM: Vitals Office Visit from 03/18/2017 in Transplant at [place] Weight - Scale 100.3 kg (221 lb 3.2 oz) Temp 36.5 ??C (97.7 ??F) Temp Source Oral Heart Rate 59 Resp 12 BP 136/73 Patient Position Sitting SpO2 95 % Gen - AAO x 3 in NAD Skin - No exanthem. HEENT - Mucous membranes moist. Chest: Lungs clear to ausculatation w/o wheezes/ rhonchi/ crackles. Heart - S1 and S2 clear w/o murmur, gallop, or rub. JVP not elevated. Abd - Soft. + BS. No bruit. Non tender. No organomegaly. Ext - Warm. No cyanosis. No dependent edema. ?? Labs/ Imaging: Results for ETHEL AKINS ( ) as of 03/30/2017 21:58 Ref. Range 03/18/2017 09:36 03/18/2017 09:38 WBC Latest Ref Range: 4.0 - 9.5 x10(3)/mcL 7.6 RBC Latest Ref Range: 4.58 - 5.54 x10(6)/mcL 5.42 Hemoglobin Latest Ref Range: 13.7 - 16.5 gm/dL 17.1 (H) Hematocrit Latest Ref Range: 40.5 - 48.5 % 48.9 (H) MCV Latest Ref Range: 82.9 - 93.1 fL 90.2 MCH Latest Ref Range: 27.5 - 32.1 pg 31.5 MCHC Latest Ref Range: 32.0 - 35.7 gm/dL 35.0 RDWSD Latest Ref Range: 36.0 - 45.0 fL 42.0 RDWCV Latest Ref Range: 11.4 - 13.8 % 12.9 Platelets Latest Ref Range: 145 - 357 x10(3)/mcL 255 MPV Latest Ref Range: 7.6 - 12.[address] % Latest Ref Range: 0.7 - 2.6 % 2.[address] Abs Latest Ref Range: 0.030 - 0.120 x10(6)/mcL 0.110 Immature Retic% Latest Ref Range: 0.0 - 15.6 % 11.0 Reticulated Hgb Latest Ref Range: 31.3 - 40.2 pg 36.1 nRBC % Auto Latest Units: % 0.0 nRBC Abs Auto Latest Ref Range: 0.000 - 0.000 x10(3)/mcL 0.000 Neutr Abs (ANC) Latest Ref Range: 1.70 - 6.10 x10(3)/mcL 4.57 Neutrophils % Latest Units: % 59.8 Immature Gran % Latest Units: % 0.40 Lymphocytes % Latest Units: % 26.6 Monocytes % Latest Units: % 8.2 Eosinophils % Latest Units: % 3.8 Basophils % Latest Units: % 1.2 Ayesha Gran Abs Latest Ref Range: 0.00 - 0.04 x10(3)/mcL 0.03 Lymphocytes Abs Latest Ref Range: 0.9 - 3.2 x10(3)/mcL 2.0 Monocyte Abs Latest Ref Range: 0.3 - 0.9 x10(3)/mcL 0.6 Eosinophils Abs Latest Ref Range: 0.0 - 0.4 x10(3)/mcL 0.3 Basophils Abs Latest Ref Range: 0.0 - 0.1 x10(3)/mcL 0.1 Sodium Latest Ref Range: 135 - 145 mmol/L 141 Potassium Latest Ref Range: 3.5 - 5.0 mmol/L 3.9 Chloride Latest Ref Range: 98 - 107 mmol/L 101 CO2 Latest Ref Range: 22 - 31 mmol/L 27 Anion Gap Latest Ref Range: 5 - 15 mmol/L 13 BUN Latest Ref Range: 10 - 20 mg/dL 27 (H) Creatinine Latest Ref Range: 0.80 - 1.50 mg/dL 1.52 (H) Estimated GFR Latest Ref Range: >=60 46 (L) Glucose Lvl Latest Ref Range: 65 - 199 mg/dL 116 Calcium Latest Ref Range: 8.5 - 10.5 mg/dL 9.8 Magnesium Latest Ref Range: 0.69 - 1.07 mmol/L 0.77 Phosphorus Latest Ref Range: 2.5 - 4.5 mg/dL 2.6 Uric Acid Latest Ref Range: 3.5 - 8.5 mg/dL 9.3 (H) Total Protein Latest Ref Range: 6.1 - 8.0 gm/dL 7.7 Albumin Latest Ref Range: 3.2 - 5.2 gm/dL 4.3 Total Bilirubin Latest Ref Range: 0.2 - 1.3 mg/dL 2.4 (H) Alk Phos Latest Ref Range: 40 - 120 unit/L 65 AST Latest Ref Range: 0 - 39 unit/L 17 ALT Latest Ref Range: 0 - 55 unit/L 17 U Protein Ran Latest Ref Range: 0 - 12 mg/dL 32 (H) Chol, Total Latest Ref Range: <=239 mg/dL 150 Lipid Interpretation Unknown See Note Tacrolimus Lvl Latest Units: ng/mL 4.4 Color UA Latest Ref Range: Yellow Yellow Appearance UA Latest Ref Range: Clear Clear Spec Dailey UA Latest Ref Range: 1.002 - 1.030 1.026 pH UA Latest Ref Range: 5.0 - 8.0 6.0 Protein UA Latest Ref Range: Negative mg/dL 30 (A) Glucose UA Latest Ref Range: Negative mg/dL Negative Ketones UA Latest Ref Range: Negative mg/dL Negative Bilirubin UA Latest Ref Range: Negative mg/dL Negative Urobilinogen UA Latest Ref Range: Normal mg/dL 2.0 (A) Blood UA Latest Ref Range: Negative mg/dL Negative Leukocytes UA Latest Ref Range: Negative mcL Negative Nitrite UA Latest Ref Range: Negative Negative WBC UA Latest Ref Range: 0 - 3 /HPF Not Present RBC UA Latest Ref Range: 0 - 3 /HPF 2 Bacteria UA Latest Ref Range: None /HPF Rare (A) Culture Reflexed Unknown No Prot/Cre Ratio Latest Units: ratio 0.2 U Creatinine Latest Units: mg/dL 154 BKV Blood Result Unknown Not Detected BKV Blood Interp Unknown BK Virus Plasma R... Impression/ Plan: Mr. Akins is a 66 yr old gentleman w/ hx of kidney transplant who presents to clinic for f/u at 18 months. His ureteral obstruction and hep C issues have been resolved ?? Transplant Status -s/p donor kidney transplant -Creatinine stable 1.5 mg/dL -Drinks 2L fluids/day -Patient now has PTDM treatment and is under care with his PCP ?? Immunosuppression -Prograf, Cellcept ?? PO4/Mg - Kphos. - Decrease Magnesium to 1000mg BID. ?? Hypertension -BP 125/62. Flomax ?? Hepatitis C -on Harmoni treatment -Viral load undetectable after treatment -ID following RTC 6 months, monthly labs documented in this encounter Plan of Treatment Upcoming Encounters Date Type Department Care Team (Late st Contact Info) Description 04/15/2024 10:00 AM EDT Hospital Encounter Non-Invasive [place] [address] Arrived documented as of this [...] EDT) Glucose, Urine Dipstick Negative Negative mg/dL [facility] Protein, Urine Dipstick 30(A) Negative mg/dL [facility] Bilirubin, Urine Dipstick Negative Negative mg/dL [facility] Comment: Clinical correlation required for positive Urine Bilirubin results as false positive may occur with some drugs and drug related products. If a false positive is suspected a serum total bilirubin should be considered if clinically indicated. Urobilinogen, Urine Dipstick 2.0(A) Normal mg/dL [facility] pH, Urn (dipstick) 6.0 5.0 - 8.0 [facility] Blood, Urine Dipstick Negative Negative mg/dL [facility] Ketone, Urine Dipstick Negative Negative mg/dL [facility] Nitrite, Urine Dipstick Negative Negative [facility] Leukocytes, Urine Dipstick Negative Negative [facility] Appearance, Urine Dipstick Clear Clear [facility] Specific Dailey Urine Automated 1.026 1.002 - 1.030 [facility] Color, Urine Dipstick Yellow Yellow [facility] RBC, Urine 2 0 - 3 /HPF [facility] WBC, Urine Not Present 0 - 3 /HPF [facility] Bacteria, Urine Rare(A) None /HPF [facility] Reflex to Culture No [facility] Urine specimen obtained by clean catch procedure (specimen) 03/18/2017 9:38 AM EDT 03/18/2017 9:52 AM EDT Narrative Resulting Agency Comment Spec In Lab Tal Eagle MD URINE ORDERABLES Performing Organization Address City/[facility] [address]/ZIP Co de Phone Number [facility] [place] [address] * (ABNORMAL) Protein/Creatinine Ratio, urine (03/18/2017 9:38 AM EDT) Creatinine, Urine 154 mg/dL [facility] Protein, Urine 32(H) 0 - 12 mg/dL [facility] Protein / Creatinine Ratio, Urine 0.2 ratio [facility] Urine specimen (specimen) 03/18/2017 9:38 AM EDT 03/18/2017 9:51 AM EDT Narrative Resulting Agency Comment Spec In Lab Tal Eagle MD URINE ORDERABLES Performing Organization Address City/[facility] [address]/[place] [address] * Gold Tube HOLD (03/18/2017 9:36 AM EDT) Gold Hold Sample in lab. [facility] Blood specimen (specimen) 03/18/2017 9:36 AM EDT 03/18/2017 9:46 AM EDT Tal Eagle MD CHEMISTRY ORDERAB LES Performing Organization Address [facility] [address]/[facility] Co de Phone Number [facility] [place] [address] * Lavender Tube HOLD (03/18/2017 9:36 AM EDT) Lavender Hold Sample in lab. [facility] Blood specimen (specimen) 03/18/2017 9:36 AM EDT 03/18/2017 9:46 AM EDT Tal Eagle MD HEMATOLOGY ORDERA BLES Performing Organization Address [facility] Co de Phone Number [facility] [address] * (ABNORMAL) Uric acid (03/18/2017 9:36 AM EDT) Uric Acid 9.3(H) 3.5 - 8.5 mg/dL [facility] Blood specimen (specimen) 03/18/2017 9:36 AM EDT 03/18/2017 9:46 AM EDT Narrative Resulting Agency Comment Spec In Lab Tal Eagle MD CHEMISTRY ORDERAB LES Performing Organization Address [facility] [address]/[facility] Co de Phone Number [facility] [place] [address] * Tacrolimus level (03/18/2017 9:36 AM EDT) Tacrolimus 4.4 ng/mL [facility] Comment: Trough therapeutic: ??5-15 ng/mL Performed by ultra-performance liquid chromatography tandem mass spectrometry (UPLCMS/MS). This test was developed and its performance characteristics determined by [facility]. It has not been cleared or [...] MD CHEMISTRY ORDERAB LES Performing Organization Address [facility] [address]/[facility] Co de Phone Number [facility] [place] [address] * Reticulocyte Count (03/18/2017 9:36 AM EDT) Reticulocyte % 2.0 0.7 - 2.6 % [facility] Retic Abs # 0.110 0.030 - 0.120 x10(6)/mcL [facility] Immature Retic% 11.0 0.0 - 15.6 % [facility] Reticulated Hgb 36.1 31.3 - 40.2 pg [facility] Blood specimen (specimen) 03/18/2017 9:36 AM EDT 03/18/2017 9:46 AM EDT Narrative Resulting Agency Comment Spec In Lab Tal Eagle MD HEMATOLOGY ORDERA BLES Performing Organization Address [facility] [address]/[facility] de Phone Number [facility] [place] [address] * Phosphorus (03/18/2017 9:36 AM EDT) Phosphorus 2.6 2.5 - 4.5 mg/dL [facility] Blood specimen (specimen) 03/18/2017 9:36 AM EDT 03/18/2017 9:46 AM EDT Narrative Resulting Agency Comment Spec In Lab Tal Eagle MD CHEMISTRY ORDERAB LES Performing Organization Address [facility] [address]/[facility] Co de Phone Number [facility] [place] [address] * Magnesium (03/18/2017 9:36 AM EDT) Magnesium 0.77 0.69 - 1.07 mmol/L [facility] Blood specimen (specimen) 03/18/2017 9:36 AM EDT 03/18/2017 9:46 AM EDT Narrative Resulting Agency Comment Spec In Lab Tal Eagle MD CHEMISTRY ORDERAB LES [facility] [place] [address] * (ABNORMAL) Comprehensive metabolic panel (non-fasting) (03/18/2017 9:36 AM EDT) Glucose 116 65 - 199 mg/dL [facility] Comment:Diabetes: >=200 mg/d L plus symptoms Blood Urea Nitrogen 27(H) 10 - 20 mg/dL [facility] Creatinine 1.52(H) 0.80 - 1.50 mg/dL [facility] Comment: Please note that the pediatric reference intervals supplied above were not validated at [facility]. Results from pediatric patients should be interpreted in conjunction to the patient's age, height and muscle mass. Sodium 141 135 - 145 mmol/L [facility] Potassium 3.9 3.5 - 5.0 mmol/L [facility] Comment: Please note: ??Patients with WBC >100,000 may have falsely elevated Potassium levels. ??For accurate Potassium quantification in these patients send serum separator tube (gold top) for subsequent determinations. ??Contact the Clinical Chemistry Laboratory if there are any questions. Chloride 101 98 - 107 mmol/L [facility] Carbon Dioxide 27 22 - 31 mmol/L [facility] Anion Gap 13 5 - 15 mmol/L [facility] Calcium 9.8 8.5 - 10.5 mg/dL [facility] Protein, Total 7.7 6.1 - 8.0 gm/dL [facility] Albumin 4.3 3.2 - 5.2 gm/dL [facility] Aspartate Aminotransferase 17 0 - 39 unit/L [facility] Alanine Aminotransferase 17 0 - 55 unit/L [facility] Alkaline Phosphatase 65 40 - 120 unit/L [facility] Bilirubin, Total 2.4(H) 0.2 - 1.3 mg/dL [facility] Est Glomerular Filtration Rate 46(L) >=60 [facility] Comment: This estimated GFR (eGFR) [...] the following links into your internet browser. [email or web address] [email or web address] Blood specimen (specimen) 03/18/2017 9:36 AM EDT 03/18/2017 9:46 AM EDT Narrative Resulting Agency Comment Spec In Lab Tal Eagle MD CHEMISTRY ORDERAB LES [facility] [place] [address] * Cholesterol, total (03/18/2017 9:36 AM EDT) Cholesterol, Total 150 <=239 mg/dL [facility] Lipid Interpretation See Note [facility] Comment: Lipid management should be guided by a patient? s ASCVD risk, goals and preferences. ACC/AHA Guidelines recommend high intensity statin if clinical ASCVD or LDL greater than or equal to 190 mg/dL. http://kites.io/WGB-GFE-Zvnribtbb Adults aged 40-75 with LDL 70-189 mg/dL should have their 10 year ASCVD risk estimated with the ACC/AHA ASCVD risk microstrategy reports developer http://tools.acc.org/ERZNV-Owta-Eiwpgpjta/ Statin should be discussed if risk greater [...] Lab Tal Eagle MD CHEMISTRY ORDERAB LES [facility] [place] [address] * BKV Quant Blood (03/18/2017 9:36 AM EDT) BKV Blood Result Not Detected [facility] BKV Blood Interp BK Virus Plasma Result Interpretation Result: BK Virus not detected Specimen type: plasma Assay Range: 2.83-8.83 log copies/mL (6.8x10^2 - 6.8x10^8 copies/mL) Methods: Quantitative real-time polymerase chain reaction (PCR) of viral DNA isolated from plasma was performed using [employer] (formerly, [employer]) BKV analyte-specific reagents and the [employer] Biosystems 7500 FAST Real-Time PCR System. In addition, [...] [facility] ([facility]) Laboratory at [facility]. It has not been cleared or approved by the FDA. The laboratory is regulated under CLIA as qualified to perform high-complexity testing. This test is used for clinical purposes. It should not be regarded as investigational or for research. [facility] Comment: [VERIFIED DATE]03.26.17 Verified By:Bryan PhD, Sreedhar Bell Molecular Pathologist (Electronic Signature) Blood specimen (specimen) 03/18/2017 9:36 AM EDT 03/18/2017 10:31 AM EDT Narrative Resulting Agency Comment Spec In Lab Tal Eagle MD MOLECULAR ORDERAB LES [facility] [place] [address] documented in this encounter Visit Diagnoses Diagnosis Kidney replaced by transplant Aftercare following organ transplant Prophylactic immunotherapy Need for prophylactic immunotherapy documented in this encounter Care Teams Die Sinker Relationship Specialty Start Date End Date Urbano Denis DO [address] [place] [address] [address] [place] [address] PCP - General 09/03/12 03/17/22 Ruchi Valles RN Nurse Clinic Transplant Surgery 07/30/15 documented as of this encounter
--- OUTSIDE RECORDS SUMMARY | 2024-02-14 11:26 | XMS_ITS | Encounter Summary ---
Author Organization [facility] [place] [address] Care Team Providers Care Finisher Card Tender Name Role Phone AdeelUrbano toscano Primary Care Provider + [phone] Reason for Referral * Consultation (Routine) - Specialty Diagnoses / Procedures Referred By Humberto flor Referred To Contact Orthopaedics Diagnoses Osteoarthritis of right knee, unspecified osteoarthritis type Tal Eagle MD [facility] [place] [address] Breezy Dale MD [facility] [place] [address] Referral ID Status Reason Start Date Expiration Date V isits Requested Visits Authorized [id number] Consult, Test & Treat 09/09/2017 09/09/2018 10 10 Reason for Visit * Reason Comments Kidney Transplant Follow-up Immunotherapy Encounter Details Date Type Department Care Team (Latest Contact Info) Description 09/09/2017 10:40 AM EST Office [place] [address] Tal Eagle MD [facility] [place] [address] Kidney replaced by transplant; jail current use of 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 drug ; Vitamin D deficiency ; Osteoarthritis of right knee, unspecified osteoarthritis type; Hypertension secondary to other renal disorders; Aftercare following organ transplant; Immunosuppression Social History Tobacco Use Types Packs/Day Years [...] Reading Time Taken Comments Blood Pressure 120/64 09/09/2017 10:49 AM EST Pulse 61 09/09/2017 10:49 AM EST Temperature 36.6 ??C (97.8 ??F) 09/09/2017 1 0:49 AM EST Respiratory Rate 12 09/09/2017 10:4 9 AM EST Oxygen Saturation 98% 09/09/2017 10: 49 AM EST Inhaled Oxygen Concentration - - Weight 104.1 kg (229 lb 6.4 oz) 018 10:49 AM EST Height - - Body Mass Index 32.92 09/15/2016 10:34 AM EDT documented in this encounter Progress Notes * Joanne Nogueira CMA - 09/09/2017 10:40 AM EST Confirmed patient's last name and Reviewed tobacco use, all allergies and meds, dose and frequency. Mag G now 2/2; levothyroxine increased to 137 mg. ~ 2 missed doses per year. No additional OTC meds, nutritional or herbal supplements. Reviewed education tab. Reviewed immunizations; HD flu done at PCP 07/23; see scanned doxs. Needs new med list and new pill box. Gave patient standing orders * Tal Eagle MD - 09/09/2017 10:40 AM EST [facility] Transplant Nephrology Follow Up ? Date: 09/09/2017 Patient: Ethel Akins Transplant Date: 09/16/2015 ? Transplant organ/Indication: ??Kidney / DM, HTN ? History of Present Illness: 67 y.o. male w/ hx of HCV, DM, [...] cleared the infection. ? Interim Hx:??Patient drinks 2L fluids/day. He feels great and has no signs or symptoms of graft dysfunction or urinary tract symptoms; now out 2 years. He states in the last 6 months he had one episode of hemoptysis for which he was given amoxicillin for 7 days. He was tested for TB and found to be negative as one would expect! CXR was positive again by report. Requesting evaluation by Orthopedics for follow up of knee replacement and worsening immobility. All other review of systems were neither positive or negative Healthcare maintenance for a transplant recipient: ? Immunizations (no live virus or modified bacterial vaccines) ?Prevnar 13 once in a lifetime ?Pneumovax 23 every 5 years ?Tdap every 10 years ?Annual flu shot Annual PCP exam Annual CASEY [...] for diabetics, every 5 for non diabetics [place] kidney ultrasound looking for renal cell CA, every 5 years post transplant Bone density assessment every 9-12 years post transplant Annual fasting lipid profile Annual PTH-Vit D3 assessment until normalized Annual 24 hour timed urine for creatinine, protein, calcium, phosphate, magnesium ? ROS: Denies fevers, chills, nausea, vomiting, diarrhea, abd pain, chest pain, sob. No other positives ornegatives. ? Medications: ?? Current Outpatient Prescriptions: ??? levothyroxine (SYNTHROID) 137 mcg [...] ? Allergies / ADRs: No Known Allergies ? PHYSICAL EXAM: Vitals Office Visit from 09/09/2017 in Solid Organ Transplant at [place] Weight 104.1 kg (229 lb 6.4 oz) Temp 36.6 ??C (97.8 ??F) Temp src Oral Heart Rate 61 Resp 12 BP 120/64 Patient Position Sitting SpO2 98 % Gen - AAO x 3 in NAD Skin - No exanthem. HEENT - Mucous membranes moist. Chest: Lungs clear to ausculatation w/o wheezes/ rhonchi/ crackles. Heart - S1 and S2 clear w/o murmur, gallop, or rub. JVP not elevated. Abd - Soft. + BS. No bruit. Non tender. No organomegaly. Ext - Warm. No cyanosis. No dependent edema. ? Labs/ Imaging: Results for ETHEL KAINS ( ) as of 09/20/2017 15:03 Ref. Range 09/09/2017 06:15 09/09/2017 06:15 09/09/2017 10:03 09/09/2017 10:53 09/09/2017 10:53 WBC Latest Ref Range: 4.0 - 9.5 x10(3)/mcL 7.9 RBC Latest Ref Range: 4.58 - 5.54 x10(6)/mcL 5.10 Hemoglobin Latest Ref Range: 13.7 - 16.5 gm/dL 15.8 Hematocrit Latest Ref Range: 40.5 - 48.5 % 45.2 MCV Latest Ref Range: 82.9 - 93.1 fL 88.6 MCH Latest Ref Range: 27.5 - 32.1 pg 31.0 MCHC Latest Ref Range: 32.0 - 35.7 gm/dL 35.0 RDWSD Latest Ref Range: 36.0 - 45.0 fL 41.6 RDWCV Latest Ref Range: 11.4 - 13.8 % 12.8 Platelets Latest Ref Range: 145 - 357 x10(3)/mcL 304 MPV Latest Ref Range: 7.6 - 12.[address] % Latest Ref Range: 0.7 - 2.6 % 2.[address] Abs Latest Ref Range: 0.030 - 0.120 x10(6)/mcL 0.110 Immature Retic% Latest Ref Range: 0.0 - 15.6 % 13.1 Reticulated Hgb Latest Ref Range: 31.3 - 40.2 pg 35.4 nRBC % Auto Latest Units: % 0.0 nRBC Abs Auto Latest Ref Range: 0.000 - 0.000 x10(3)/mcL 0.000 Neutr Abs (ANC) Latest Ref Range: 1.70 - 6.10 x10(3)/mcL 5.05 Neutrophils % Latest Units: % 64.2 Immature Gran % Latest Units: % 0.80 Lymphocytes % Latest Units: % 24.2 Monocytes % Latest Units: % 7.1 Eosinophils % Latest Units: % 2.7 Basophils % Latest Units: % 1.0 Ayesha Gran Abs Latest Ref Range: 0.00 - 0.04 x10(3)/mcL 0.06 (H) Lymphocytes Abs Latest Ref Range: 0.9 - 3.2 x10(3)/mcL 1.9 Monocyte Abs Latest Ref Range: 0.3 - [...] Latest Ref Range: 22 - 31 mmol/L 24 Anion Gap Latest Ref Range: 5 - 15 mmol/L 16 (H) BUN Latest Ref Range: 10 - 20 mg/dL 14 Creatinine Latest Ref Range: 0.80 - 1.50 mg/dL 1.20 Estimated GFR Latest Ref Range: >=60 60 Glucose Fasting Latest Ref Range: 65 - 99 mg/dL 122 (H) Calcium Latest Ref Range: 8.5 - 10.5 mg/dL 9.2 Magnesium Latest Ref Range: 0.69 - 1.07 mmol/L 0.68 (L) Hemoglobin A1C Latest Ref Range: 4.3 - 5.6 % 5.1 Est Avg Gluc Latest Units: mg/dL 100 Phosphorus Latest Ref Range: 2.5 - 4.5 mg/dL 2.5 Uric Acid Latest Ref Range: 3.5 - 8.5 mg/dL 7.3 Total Protein Latest Ref Range: 6.1 - 8.0 gm/dL 7.6 Albumin Latest Ref Range: 3.2 - 5.2 gm/dL 4.1 Total Bilirubin Latest Ref Range: 0.2 - 1.3 mg/dL 1.1 Alk Phos Latest Ref Range: 40 - 120 unit/L 71 AST Latest Ref Range: 0 - 39 unit/L 18 ALT Latest Ref Range: 0 - 55 unit/L 19 25-OH Vit D Total Latest Ref Range: 30 - 100 ng/mL 16 (L) Vit D 1,25 Latest Ref Range: 18 - 64 pg/mL 59 U Protein Ran Latest Ref Range: 0 - 12 mg/dL 62 (H) Chol, Total Latest Units: mg/dL 138 HDL Latest Units: mg/dL 33 Chol/HDL Ratio Latest Units: ratio 4.2 Triglycerides Latest Units: mg/dL 178 LDL Cholesterol Latest Units: mg/dL 69 Lipid Interpretation Unknown See Note Tacrolimus Lvl Latest Units: ng/mL 5.5 PTH Latest Ref Range: 15 - 65 pg/mL 57 Color UA Latest Ref Range: Yellow Yellow Appearance UA Latest Ref Range: Clear Clear Spec [place] UA Latest Ref Range: 1.002 - 1.030 1.016 pH UA Latest Ref Range: 5.0 - [...] Latest Ref Range: 0 - 3 /HPF <1 RBC UA Latest Ref Range: 0 - 3 /HPF 2 Culture Reflexed Unknown No Prot/Cre Ratio Latest Units: ratio 0.7 Ca/Cre Ratio Latest Units: ratio 0.09 U Calcium Latest Units: mg/dL 7.9 U Creatinine Latest Units: mg/dL 84 84 U Phosphorus Latest Units: mg/dL 49.2 Urine TV (ml) Latest Units: mL 1400 Hours Collected Latest Units: hour(s) 24 U24 Ca Calc Latest Ref Range: 50.0 - 300.0 mg/24hr 133.0 U24 Ca Conc Latest Units: mg/dL 9.5 Creat Clearance Latest Ref Range: 90 - 139 mL/min 87 (L) U24 Creat Calc Latest Ref Range: 0.80 - 1.90 gm/24hr 1.50 1.50 U24 Creat Conc Latest Units: mg/dL 107 107 U24 Phos Calc Latest Ref Range: 0.4 - 1.3 gm/24hr 0.9 U24 Phos Conc Latest Units: mg/dL 66.0 U24 Prot Calc Latest Ref Range: <=0.15 gm/24hr 0.78 (H) U24 Prot Conc Latest Ref Range: <=80 mg/dL 56 U24 Uric Calc Latest Ref Range: 0.25 - 0.80 gm/24hr 0.41 U24 Uric Conc Latest Units: mg/dL 29.0 BKV Blood Result Unknown Not Detected BKV Blood Interp Unknown BK Virus Plasma R... Impression/ Plan: Mr. Akins is a 67 yr old gentleman w/ hx of kidney transplant who presents to clinic for f/u at 24 months. His ureteral obstruction and hep C issues have been resolved ? 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 Immunosuppression -Prograf, Cellcept ? PO4/Mg - Kphos. decr to 2 tabs bid - Magnesium gluconate to 1000mg BID. ? Hypertension -BP 125/62. ??Flomax ? Hepatitis C -on [place] treatment -Viral load undetectable after treatment -ID following ?? 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 Author DH Home Medication Compliance and Understanding Patient Facing Action Plan On track( 017 10:41 AM EDT) No [facility] Note: Patient Goal: Clear hepatitis C Timeframe to meet goal: within 12 weeks of therapy documented as of this encounter Results * (ABNORMAL) Urinalysis with reflex Culture (09/09/2017 10:53 AM EST) Glucose, Urine Dipstick Negative Negative mg/dL [facility] Protein, Urine Dipstick 100(A) Negative mg/dL [facility] Bilirubin, Urine Dipstick Negative Negative mg/dL [facility] Comment: Clinical correlation required for positive Urine Bilirubin results as false positive may occur with some drugs and drug related products. If a false positive is suspected a serum total bilirubin should be considered if clinically indicated. Urobilinogen, Urine Dipstick Normal Normal mg/dL [facility] pH, Urn (dipstick) 6.0 5.0 - 8.0 [facility] Blood, Urine Dipstick Negative Negative mg/dL [facility] Ketone, Urine Dipstick Negative Negative mg/dL [facility] Nitrite, Urine Dipstick Negative Negative [facility] Leukocytes, Urine Dipstick Negative Negative [facility] Appearance, Urine Dipstick Clear Clear [facility] Specific [place] Urine Automated 1.016 1.002 - 1.030 [facility] Color, Urine Dipstick Yellow Yellow [facility] Reflex to Culture No [facility] Urine specimen obtained by clean catch procedure (specimen) 09/09/2017 10:53 AM EST 09/09/2017 10:58 AM EST Narrative Resulting Agency Comment Spec In Lab Tal Eagle MD URINE ORDERABLES Performing Organization Address City/[facility] Co de Phone Number [facility] [place] [address] * (ABNORMAL) Protein/Creatinine Ratio, urine (09/09/2017 10:53 AM EST) Creatinine, Urine 84 mg/dL [facility] Protein, Urine 62(H) 0 - 12 mg/dL [facility] Protein / Creatinine Ratio, Urine 0.7 ratio [facility] Urine specimen (specimen) 09/09/2017 10:53 AM EST 09/09/2017 10:58 AM EST Narrative Resulting Agency Comment Spec In Lab Tal Eagle MD URINE ORDERABLES Performing Organization Address [facility] Co de Phone Number [facility] [place] [address] * Phosphorus, urine, random (09/09/2017 10:53 AM EST) Phosphorus, Urine 49.2 mg/dL [facility] Urine specimen (specimen) 09/09/2017 10:53 AM EST 09/09/2017 10:58 AM EST Narrative Resulting Agency Comment Spec In Lab Tal Eagle MD URINE ORDERABLES Performing Organization Address City/[facility] Co de Phone Number [facility] [place] [address] * Calcium Creatinine Ratio, random urine (09/09/2017 10:53 AM EST) Calcium, Urine 7.9 mg/dL [facility] Creatinine, Urine 84 mg/dL [facility] Calcium / Creatinine Ratio, Urine 0.09 ratio [facility] Urine specimen (specimen) 09/09/2017 10:53 AM EST 09/09/2017 10:58 AM EST Narrative Resulting Agency Comment Spec In Lab Tal Eagle MD URINE ORDERABLES Performing Organization Address [facility] Co de Phone Number [facility] [place] [address] * Gold Tube HOLD (09/09/2017 10:03 AM EST) Gold Hold Sample in lab. [facility] Blood specimen (specimen) 09/09/2017 10:03 AM EST 09/09/2017 10:09 AM EST Tal Eagle MD CHEMISTRY ORDERAB LES Performing Organization Address [facility] Co de Phone Number [facility] [place] [address] * Lavender Tube HOLD (09/09/2017 10:03 AM EST) Lavender Hold Sample in lab. [facility] Blood specimen (specimen) 09/09/2017 10:03 AM EST 09/09/2017 10:09 AM EST Tal Eagle MD HEMATOLOGY ORDERA BLES Performing Organization Address [facility] de Phone Number [facility] [place] [address] * (ABNORMAL) Vitamin D, 25-Hydroxy (09/09/2017 10:03 AM EST) Vitamin D Total 25 OH 16(L) 30 - 100 ng/mL [facility] Comment: Deficient <10 ng/mL Insufficient 10 to 29 ng/mL Sufficient 30 to 100 ng/mL Potential Intoxication >100 ng/mL According to the US National Osteoporosis Foundation, Vitamin D concentrations >30 ng/mL are sufficient to protect bone health. ??The National Kidney Foundation has similarly stated that patients with Vitamin D concentrations <30ng/mL should be considered to be insufficient or deficient. http://Savalanche.com/nkf-guidelines http://Savalanche.NextUser/nejm-VitD The IDS iSYS Vitamin D Immunoassay detects both 25-OH Vitamin D2 and 25-OH Vitamin D3, but only a total Vitamin D concentration is reported. Blood specimen (specimen) 09/09/2017 10:03 AM EST 09/09/2017 2:08 PM EST Narrative Resulting Agency Comment Spec In Lab Tal Eagle MD CHEMISTRY ORDERAB LES Performing Organization Address [facility] de Phone Number [facility] [place] [address] * Uric acid (09/09/2017 10:03 AM EST) Uric Acid 7.3 3.5 - 8.5 mg/dL [facility] Blood specimen (specimen) 09/09/2017 10:03 AM EST 09/09/2017 10:09 AM EST Narrative Resulting Agency Comment Spec In Lab Tal Eagle MD CHEMISTRY ORDERAB LES Performing Organization Address [facility] de Phone Number [facility] [place] [address] * Tacrolimus level (09/09/2017 10:03 AM EST) Tacrolimus 5.5 ng/mL [facility] Comment: Trough therapeutic: ??5-15 ng/mL Performed by ultra-performance liquid chromatography tandem mass spectrometry (UPLCMS/MS). This test was developed and its performance characteristics determined by [facility]. It has not been [...] MD CHEMISTRY ORDERAB LES Performing Organization Address [facility] de Phone Number [facility] [place] [address] * Reticulocyte Count (09/09/2017 10:03 AM EST) Reticulocyte % 2.2 0.7 - 2.6 % [facility] Retic Abs # 0.110 0.030 - 0.120 x10(6)/mcL [facility] Immature Retic% 13.1 0.0 - 15.6 % [facility] Reticulated Hgb 35.4 31.3 - 40.2 pg [facility] Blood specimen (specimen) 09/09/2017 10:03 AM EST 09/09/2017 10:09 AM EST Narrative Resulting Agency Comment Spec In Lab Tal Eagle MD HEMATOLOGY ORDERA BLES Performing Organization Address [facility] [place] [address] * PTH (09/09/2017 10:03 AM EST) Parathyroid Hormone 57 15 - 65 pg/mL [facility] Blood specimen (specimen) 09/09/2017 10:03 AM EST 09/09/2017 10:09 AM EST Narrative Resulting Agency Comment Spec In Lab Tal Eagle MD CHEMISTRY ORDERAB LES Performing Organization Address [facility] Co de Phone Number [facility] [place] [address] * Phosphorus (09/09/2017 10:03 AM EST) Phosphorus 2.5 2.5 - 4.5 mg/dL [facility] Blood specimen (specimen) 09/09/2017 10:03 AM EST 09/09/2017 10:09 AM EST Narrative Resulting Agency Comment Spec In Lab Tal Eagle MD CHEMISTRY ORDERAB LES Performing Organization Address City/[facility]/ZIP Co de Phone Number [facility] [place] [address] * BKV Quant Blood (09/09/2017 10:03 AM EST) Pathologist [facility] BKV Blood Result Not Detected [facility] BKV Blood Interp BK Virus Plasma Result Interpretation Result: BK Virus not detected Specimen type: plasma Assay Range: 2.83-8.83 log copies/mL (6.8x10^2 - 6.8x10^8 copies/mL) Methods: Quantitative real-time polymerase chain reaction (PCR) of viral DNA isolated from plasma was performed using [employer] (formerly, [employer]) BKV analyte-specific reagents and the Applied iSkoot 7500 FAST Real-Time PCR System. In addition, [...] [facility] and [employer] [facility] (CGAT) Laboratory at [facility]. It has not been cleared or approved by the FDA. The laboratory is regulated under CLIA as qualified to perform high-complexity testing. This test is used for clinical purposes. It should not be regarded as investigational or for research. [facility] Comment: [VERIFIED DATE]09.15.17 Verified By:Jimmy Gleason (Electronic Signature) Blood specimen (specimen) 09/09/2017 10:03 AM EST 09/09/2017 12:55 PM EST Narrative Resulting Agency Comment Spec In Lab Tal Eagle MD MOLECULAR ORDERAB LES [facility] [place] [address] * (ABNORMAL) Magnesium (09/09/2017 10:03 AM EST) Pathologist [facility] Magnesium 0.68(L) 0.69 - 1.07 mmol/L [facility] Blood specimen (specimen) 09/09/2017 10:03 AM EST 09/09/2017 10:09 AM EST Narrative Resulting Agency Comment Spec In Lab Tal Eagle MD CHEMISTRY ORDERAB LES [facility] [place] [address] * Lipid Panel (09/09/2017 10:03 AM EST) Cholesterol, Total 138 mg/dL [facility] Comment: Lower Risk: <200 mg/dL Average Risk: 200-239 mg/dL Higher Risk: >ou=357 mg/dL Triglyceride 178 mg/dL [facility] Comment: Average Risk/Lower Risk: <150 mg/dL Borderline High Risk: 150-199 mg/dL High Risk: 200-499 mg/dL Very High Risk: >mo=248 mg/dL HDL Cholesterol 33 mg/dL [facility] Comment: Males: ?? Higher Risk: <40 mg/dL Females: ?? HIgher Risk: <50 mg/dL LDL Cholesterol 69 mg/dL [facility] Comment: Lowest Risk: <100 mg/dL Lower Risk: 100-129 mg/dL Borderline High Risk: 130-159 mg/dL High Risk: 160-189 mg/dL Very High Risk: >qn=183 mg/dL Cholesterol/HDL Ratio 4.2 ratio [facility] Lipid Interpretation See Note [facility] Comment: Lipid management should be guided by a patient? s ASCVD risk, goals and preferences. ACC/AHA Guidelines recommend high intensity statin if clinical ASCVD or LDL greater than or equal to 190 mg/dL. http://tinyurl.com/AYQ-HLE-Hnapxlege Adults aged 40-75 with LDL 70-189 mg/dL should have their 10 year ASCVD risk estimated with the ACC/AHA ASCVD risk lathe winder http://tools.acc.org/YJGDZ-Gerr-Ljmkarcvq/ Statin should be discussed if risk greater [...] Lab Tal Eagle MD CHEMISTRY ORDERAB LES [facility] [place] [address] * Hemoglobin A1c (09/09/2017 10:03 AM EST) Hemoglobin A1c 5.1 4.3 - 5.6 % [facility] Comment: Reference Range: 4.3 - [...] Mellitus, Diabetes Care 2013; 36: Suppl. 1, F47-79 Estimated Average Glucose 100 mg/dL [facility] Comment: eAG equivalents for HbA1c [...] into estimated average glucose values. ??Diabetes Care 2008:31(8):8510-1145. Blood specimen (specimen) 09/09/2017 10:03 AM EST 09/09/2017 10:09 AM EST Narrative Resulting Agency Comment Spec In Lab Tal Eagle MD CHEMISTRY ORDERAB LES Performing Organization Address City/State/[facility] Co de Phone Number [facility] [place] [address] * (ABNORMAL) CMP w/fasting Glucose (09/09/2017 10:03 AM EST) Glucose Fasting 122(H) 65 - 99 mg/dL [facility] Comment: ?Fasting* Glucose Interpretive Criteria [...] of Diabetes Mellitus, Position Statement from the [place] [employer]. ??Diabetes Care, Volume 33, Supplement 1, Jul 2009 Blood Urea Nitrogen 14 10 - 20 mg/dL [facility] Creatinine 1.20 0.80 - 1.50 mg/dL [facility] Sodium 139 135 - 145 mmol/L [facility] Potassium 3.6 3.5 - 5.0 mmol/L [facility] Comment: Please note: ??Patients with WBC >100,000 may have falsely elevated Potassium levels. ??For accurate Potassium quantification in these patients send serum separator tube (gold top) for subsequent determinations. ??Contact the Clinical Chemistry Laboratory if there are any questions. Chloride 99 98 - 107 mmol/L [facility] Carbon Dioxide 24 22 - 31 mmol/L [facility] Anion Gap 16(H) 5 - 15 mmol/L [facility] Calcium 9.2 8.5 - 10.5 mg/dL [facility] Protein, Total 7.6 6.1 - 8.0 gm/dL [facility] Albumin 4.1 3.2 - 5.2 gm/dL [facility] Aspartate Aminotransferase 18 0 - 39 unit/L [facility] Alanine Aminotransferase 19 0 - 55 unit/L [facility] Alkaline Phosphatase 71 40 - 120 unit/L [facility] Bilirubin, Total 1.1 0.2 - 1.3 mg/dL [facility] Est Glomerular Filtration Rate 60 >=60 [facility] Comment: The reported eGFR should be multiplied by 1.2 for patients. The MDRD is not an appropriate measure of renal function for patients with body mass extremes or in patients with acute kidney failure. http://Savalanche.NextUser/DHnkdep http://NextStep.io/DHMCnkf Blood specimen (specimen) 09/09/2017 10:03 AM EST 09/09/2017 10:09 AM EST Narrative Resulting Agency Comment Spec In Lab Tal Eagle MD CHEMISTRY ORDERAB LES [facility] [place] [address] * 1,25-dihydroxycholecalciferol (09/09/2017 10:03 AM EST) Vit D 1,25 Dihydroxy (NOVEMBER) 59 18 - 64 pg/mL [facility] Comment: ADDITIONAL INFORMATION This test was developed and its performance characteristics determined by [facility] in a manner consistent with CLIA requirements. This test has not been cleared or approved by the U.S. Food and Drug Administration. Test Performed by: [facility] [address] [place] [id number] Blood specimen (specimen) 09/09/2017 10:03 AM EST 09/09/2017 12:15 PM EST Narrative Resulting Agency Comment Spec In Lab Tal Eagle MD LAB SEND OUT ROCHELLE JENNINGS Performing Organization Address City/[facility]/ZIP Co de Phone Number [facility] [place] [address] * Uric acid, urine, 24 hour (09/09/2017 6:15 AM EST) U24 Uric Conc 29.0 mg/dL [facility] Uric Acid, 24 Hour Urine 0.41 0.25 - 0.80 gm/24hr [facility] Urine specimen (specimen) 09/09/2017 6:15 AM EST 09/09/2017 11:04 AM EST Narrative Resulting Agency Comment Spec In Lab Tal Eagle MD URINE ORDERABLES Performing Organization Address [facility] [facility] Co de Phone Number [facility] [place] [address] * (ABNORMAL) Protein, urine, 24 hour (09/09/2017 6:15 AM EST) Protein Concentration, U24 56 <=80 mg/dL [facility] Protein, 24 Hour Urine 0.78(H) <=0.15 gm/24hr [facility] Urine specimen (specimen) 09/09/2017 6:15 AM EST 09/09/2017 11:04 AM EST Narrative Resulting Agency Comment Spec In Lab Tal Eagle MD URINE ORDERABLES [facility] [place] [address] * Phosphorus, urine, 24 hour (09/09/2017 6:15 AM EST) Phosphorus Concentration, U24 66.0 mg/dL [facility] Phosphorus, 24 Hour Urine 0.9 0.4 - 1.3 gm/24hr [facility] Urine specimen (specimen) 09/09/2017 6:15 AM EST 09/09/2017 11:04 AM EST Narrative Resulting Agency Comment Spec In Lab Tal Eagle MD URINE ORDERABLES Performing Organization Address [facility] de Phone Number [facility] [place] [address] * Creatinine, urine, 24 hour (09/09/2017 6:15 AM EST) Cre Concentration, U24 107 mg/dL [facility] Creatinine, 24 Hour Urine 1.50 0.80 - 1.90 gm/24hr [facility] Urine specimen (specimen) 09/09/2017 6:15 AM EST 09/09/2017 11:04 AM EST Narrative Resulting Agency Comment Spec In Lab Tal Eagle MD URINE ORDERABLES Performing Organization Address [facility] Co de Phone Number [facility] [place] [address] * (ABNORMAL) Creatinine Clearance, urine, 24 hour (09/09/2017 6:15 AM EST) Creatinine Clearance, 24 Hour Urine 87(L) 90 - 139 mL/min [facility] Cre Concentration, U24 107 mg/dL [facility] Creatinine, 24 Hour Urine 1.50 0.80 - 1.90 gm/24hr [facility] Urine specimen (specimen) 09/09/2017 6:15 AM EST 09/09/2017 11:04 AM EST Narrative Resulting Agency Comment Spec In Lab Tal Eagle MD URINE ORDERABLES Performing Organization Address City/[facility] Co de Phone Number [facility] [place] [address] * Calcium, urine, 24 hour (09/09/2017 6:15 AM EST) Ca Concentration, U24 9.5 mg/dL [facility] Calcium, 24 Hour Urine 133.0 50.0 - 300.0 mg/24hr [facility] Comment:Reference Range: 50. 0-300.0 mg/24 hour based on diet. 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
--- OUTSIDE RECORDS SUMMARY | 2024-02-14 11:26 | XMS_ITS | Encounter Summary ---
Author Organization [facility] [place] [address] Care Team Providers Care Magazine Designer Name Role Phone Urbano Denis DO Primary Care Provider [phone] Encounter Details Date Type Department Care Team (Latest Contact Info) Description 11/12/2016 8:46 PM EDT - 11/12/2016 11:59 PM EDT Hospital En[place] [address] Discharge Disposition: Home Social History Tobacco Use [...] Sig Dispensed Refills Start Date End Date potassium phosphate, monobasic, (K-PHOS ORIGINAL) 500 mg Tablet, Soluble Take 2 tablets by mouth 3 times daily for 3 days. 18 tablet 11/10/2016 11/13/2016 tacrolimus (PROGRAF) 1 mg Capsule Take 1 capsule by mouth 2 times daily. Take one capsule in the morning and one capsule in the evening. Code Z94.0 60 capsule 06/25/2016 12/10/2016 potassium phosphate, monobasic, (K-PHOS) 500 mg Tablet, Soluble Take 3 tabs at lunch time and 3 tabs at bedtime 180 tablet 3 06/25/2016 12/10/2016 ascorbic acid, vitamin C, (VITAMIN C) 500 mg Tablet Take 1 tablet by mouth 3 times daily. 30 tablet 3 06/25/2016 12/27/2020 clopidogrel (PLAVIX) 75 mg Tablet Take 75 mg by mouth daily. 02/17/2020 calciTRIol (ROCALTROL) 0.5 mcg Capsule Take 1 capsule by mouth daily. 30 capsule 11 06/18/2016 12/10/2016 tamsulosin (FLOMAX) 0.4 mg Capsule, Sust. Release 24 hr Take 1 capsule by mouth nightly. 30 capsule 11 06/18/2016 12/10/2016 Magnesium Gluconate 27 mg (500 mg) Tablet Take 6 tablets at breakfast and at dinner 360 tablet 3 05/28/2016 09/09/2017 sulfamethoxazole-trime thoprim (BACTRIM;SEPTRA) 400-80 mg Tablet Take 1 tablet by mouth daily. 60 tablet 2 05/28/2016 03/25/2017 levothyroxine (SYNTHROID) 100 mcg Tablet Take 100 mcg by mouth daily. 04/22/2016 09/09/2017 acetaminophen (TYLENOL) 500 mg Tablet Take 1,000 mg by mouth every 6 hours as needed for Pain. Reported on 09/15/2016 11/26/2017 mycophenolate (CELLCEPT) 250 mg Capsule Take 1 capsule by mouth 2 times daily. 01/03/2016 12/10/2016 documented as of this encounter Plan of Treatment Upcoming Encounters Date Type Department Care Team (Late st Contact Info) Description 04/15/2024 10:00 AM EDT Hospital Encounter Non-Invasive [place] [phone] Arrived documented as of this encounter Goals Goal Patient Goal Type Associated Problems Recent Progress Patient-Stated? Author DH Home Medication Compliance and Understanding Patient Facing Action Plan On track( 017 10:41 AM EDT) Selena Scott [facility] Note: Patient Goal: Clear hepatitis C Timeframe to meet goal: within 12 weeks of therapy documented as of this encounter Procedures Procedure Name Priority Date/Time Associated Diagnosis Comments LAVENDER TUBE HOLD Routine 11/12/2016 8: 52 PM EDT TACROLIMUS LEVEL Routine 11/12/2016 8:52 PM EDT documented in this encounter Results * Lavender Tube HOLD (11/12/2016 8:52 PM EDT) Lavender Hold Sample in lab. [facility] Blood specimen (specimen) No Charge / Unknown 11/12/2016 8:52 PM EDT 11/12/2016 8:54 PM EDT Tal Eagle MD HEMATOLOGY ORDERA BLES Performing Organization Address [facility] Co de Phone Number [facility] [place] [address] * Tacrolimus level (11/12/2016 8:52 PM EDT) Tacrolimus <3.0 ng/mL [facility] Comment: Trough therapeutic: ??5-15 ng/mL Performed by ultra-performance liquid chromatography tandem mass spectrometry (UPLCMS/MS). This test was developed and its performance characteristics determined by [facility]. It has not been cleared or approved by the FDA. The laboratory is regulated under CLIA as qualified to perform high-complexity testing. This test is used for clinical purposes. It should not be regarded as investigational or for research. Blood specimen (specimen) Venous Draw / Unknown 11/12/2016 8:52 PM EDT 11/13/2016 7:05 AM EDT Narrative Resulting Agency Comment Spec In Lab Tal Eagle MD CHEMISTRY ORDERAB LES Performing Organization Address City/[facility]/ZIP Co de Phone Number [facility] [place] [address] documented in this encounter Visit Diagnoses Not on filedocumented in this encounter Care Teams Magazine Designer Relationship Specialty Start Date End Date Urbano Denis DO [address] [place] [address] PCP - General 09/03/12 03/17/22 Hai STANLEY,Ruchi Nurse Clinic Transplant Surgery 07/30/15 documented as of this encounter
--- OUTSIDE RECORDS SUMMARY | 2024-02-14 11:26 | XMS_ITS | Encounter Summary ---
Author Organization [facility] [place] [address] Care Team Providers Care Pharmacy Billing Adjudicator Name Role Phone Urbano Denis DO Primary Care Provider Encounter Details Date Type Department Care Team (Latest Contact Info) Description 10/14/2016 8:09 PM EDT - 10/14/2016 11:59 PM EDT Hospital [place] [address] Discharge Disposition: Home Social History Tobacco Use [...] Sig Dispensed Refills Start Date End Date ledipasvir-sofosbuvir 90-400 mg TabletIndications:Casino Supervisor spencer hepatitis C without hepatic coma Take 1 tablet by mouth daily for 84 days. 84 tablet 08/08/2016 10/31/2016 tacrolimus (PROGRAF) 1 mg Capsule Take 1 [...] AM EDT Hospital Encounter [place] [phone] Arrived documented as of this encounter Goals Goal Patient Goal Type Associated Problems Recent Progress Patient-Stated? Author DH Home Medication Compliance and Understanding Patient Facing Action Plan On track( 017 10:41 AM EDT) Selena Scott [facility] Note: Patient Goal: Clear hepatitis C Timeframe to meet goal: within 12 weeks of therapy documented as of this encounter Procedures Procedure Name Priority Date/Time Associated Diagnosis Comments TACROLIMUS LEVEL Routine 10/14/2016 10:2 0 AM EDT documented in this encounter Results * Tacrolimus level (10/14/2016 10:20 AM EDT) Tacrolimus 3.0 ng/mL [facility] Comment: Trough therapeutic: ??5-15 ng/mL Performed by ultra-performance liquid chromatography tandem mass spectrometry (UPLCMS/MS). This test was developed and its performance characteristics determined by [facility]. It has not been cleared or approved by the FDA. The laboratory is regulated under CLIA as qualified to perform high-complexity testing. This test is used for clinical purposes. It should not be regarded as investigational or for research. Blood specimen (specimen) Venous Draw / Unknown 10/14/2016 10:20 AM EDT 10/15/2016 7:54 AM EDT Narrative Resulting Agency Comment Spec In Lab Tal Eagle MD CHEMISTRY ORDERAB LES [facility] [place] [place] [address] documented in this encounter Visit Diagnoses Not on filedocumented in this encounter Care Teams Pharmacy Billing Adjudicator Relationship Specialty Start Date End Date Urbano Denis DO [facility] [address] [place] [address] PCP - General 09/03/12 03/17/22 Ruchi Valles RN Nurse Clinic Transplant Surgery 07/30/15 documented as of this encounter
--- OUTSIDE RECORDS SUMMARY | 2024-02-14 11:26 | XMS_ITS | Encounter Summary ---
[place] [address] Care Team Providers Care Umbrella Repairer Name Role Phone Urbano Denis DO Primary Care Provider [phone] Reason for Visit * Reason Onset Date Comments Medication Refill 12/12/2016 Encounter Details Date Type Department Care Team (Late st Contact Info) Description 12/12/2016 Refill [place] [address] Joanne Nogueira CMA Social History Tobacco Use [...] Telephone Encounter - Joanne Nogueira CMA - 12/12/2016 4:02 PM EDT Patient needs to get immunosuppression meds through local pharmacy only. No mailorder documented in this encounter Plan of Treatment Upcoming Encounters Date Type Department Care Team (Late st Contact Info) Description 04/15/2024 10:00 AM EDT Hospital Encounter Non[place] [address] Arrived documented as of this encounter Goals [...] on filedocumented in this encounter Care Teams Umbrella Repairer Relationship Specialty Start Date End Date Urbano Denis DO [address] [place] [address] PCP - General 09/03/12 03/17/22 Ruchi Valles RN Nurse Clinic Transplant Surgery 07/30/15 documented as of this encounter
--- OUTSIDE RECORDS SUMMARY | 2024-02-14 11:26 | XMS_ITS | Encounter Summary ---
Author Organization [facility] [place] [address] Care Team Providers Care Operations Forester Name Role Phone AdeelUrbano toscano Primary Care Provider Reason for Visit * Reason Onset Date Comments Medication Refill 11/10/2016 Encounter Details Date Type Department Care Team (Late st Contact Info) Description 11/10/2016 Refill [place] [phone] Samia Escalante, RN Social History Tobacco Use [...] AM EDT Hospital Encounter Non-[place] [address] Arrived documented as of this encounter Goals Goal Patient Goal Type Associated Problems Recent Progress Patient-Stated? Author [facility] Medication Compliance and Understanding Patient Facing Action Plan On track( 017 10:41 AM EDT) No Selena Cisneros, [facility] Note: Patient Goal: Clear hepatitis C Timeframe to meet goal: within 12 weeks of therapy documented as of this encounter Visit Diagnoses Not on filedocumented in this encounter Care Teams Operations Forester Relationship Specialty Start Date End Date Urbano Denis DO [address] [place] [address] PCP - General 09/03/12 03/17/22 Ruchi Valles RN Nurse Clinic Transplant Surgery 07/30/15 documented as of this encounter
--- OUTSIDE RECORDS SUMMARY | 2024-02-14 11:26 | XMS_ITS | Encounter Summary ---
[place] [address] Care Team Providers Care Lifestyle Consultant Name Role Phone Urbano Denis DO Primary Care Provider Encounter Details Date Type Department Care Team (Latest Contact Info) Description 02/17/2017 8:41 PM EDT - 02/17/2017 11:59 PM EDT Hospital [place] [address] Discharge Disposition: Home Social History Tobacco Use [...] AM EDT Hospital Encounter [place] [address] Arrived documented as of this encounter Goals [...] Date/Time Associated Diagnosis Comments TACROLIMUS LEVEL Routine 02/17/2017 11:2 5 AM EDT documented in this encounter Results * Tacrolimus level (02/17/2017 11:25 AM EDT) Tacrolimus 7.3 ng/mL [facility] Comment: Trough therapeutic: ??5-15 ng/mL Performed by ultra-performance liquid chromatography tandem mass spectrometry (UPLCMS/MS). This test was developed and its performance characteristics determined by [facility]. It has not been cleared or approved by the FDA. The laboratory is regulated under CLIA as qualified to perform high-complexity testing. This test is used for clinical purposes. It should not be regarded as investigational or for research. Blood specimen (specimen) Venous Draw / Unknown 02/17/2017 11:25 AM EDT 02/18/2017 7:10 AM EDT Narrative Resulting Agency Comment Spec In Lab Tal Eagle MD CHEMISTRY ORDERAB LES [facility] [place] [address] documented in this encounter Visit Diagnoses Not on filedocumented in this encounter Care Teams Lifestyle Consultant Relationship Specialty Start Date End Date Urbano Denis DO [address] [place] [address] PCP - General 09/03/12 03/17/22 Ruchi Valles RN Nurse Clinic Transplant Surgery 07/30/15 documented as of this encounter
--- OUTSIDE RECORDS SUMMARY | 2024-02-14 11:26 | XMS_ITS | Encounter Summary ---
Author Organization [facility] [place] [address] Care Team Providers Care Chicken Catcher Name Role Phone Adeel Urbano KIRBY Primary Care Provider Encounter Details Date Type Department Care Team (Late st Contact Info) Description 12/03/2016 Telephone [place] [phone] Samia Escalante, RN Social History Tobacco Use [...] encounter Miscellaneous Notes * Telephone Encounter - Samia Escalante, RN - 12/03/2016 3:18 PM EDT Prograf Dose Adjustment Patient: Cody Bolden Date of Lab Test: 11/2016 Prograf Level: <3.0ng/mL Previous Prograf Dose: 1mg bid New Prograf Dose: 2mg AM/1mg PM Called pt, no answer, left message asking for call back to relay the information above. Addendum 12/03/16 at 15:58: pt returned call, stated understanding and will repeat his lab work in 7 days. Asked that we update his prescription with the [facility] which I have done. Pt stated understanding of plan of care. No further questions at this time. Advised to call with additional concerns. Samia Escalante, RN Post Respite Care Provider [facility] Solid Organ Transplant documented in this encounter Plan of Treatment Upcoming Encounters Date Type Department Care Team (Late st Contact Info) Description 04/15/2024 10:00 AM EDT Hospital Encounter Non[place] [address] Arrived documented as of this encounter Goals Goal Patient Goal Type Associated Problems Recent Progress Patient-Stated? Author DH [place] Medication Compliance and Understanding Patient Facing Action Plan On track( 017 10:41 AM EDT) No Selena Cisneros, [facility] Note: Patient Goal: Clear hepatitis C Timeframe to meet goal: within 12 weeks of therapy documented as of this encounter Visit Diagnoses Not on filedocumented in this encounter Care Teams Chicken Catcher Relationship Specialty Start Date End Date Urbano Denis DO [address] [place] [address] PCP - General 09/03/12 03/17/22 Ruchi Valles RN Nurse Clinic Transplant Surgery 07/30/15 documented as of this encounter
--- OUTSIDE RECORDS SUMMARY | 2024-02-14 11:26 | XMS_ITS | Encounter Summary ---
Author Organization [facility] [place] [address] Care Team Providers Care Sales Associate Name Role Phone Adeel Urbano KIRBY Primary Care Provider [phone] Encounter Details Date Type Department Care Team (Late st Contact Info) Description 08/28/2017 Orders Only [place] [address] Joanne Nogueira CMA Social History Tobacco Use [...] Progress Notes * Joanne Nogueira CMA - 08/28/2017 9:12 AM EST Standing orders faxed to [facility] laboratory at [phone]. documented in this encounter Plan of Treatment Upcoming Encounters Date Type Department Care Team (Late st Contact Info) Description 04/15/2024 10:00 AM EDT Hospital Encounter Non-[place] [address] Arrived documented as of this encounter Goals [...] filedocumented in this encounter Care Teams Sales Associate Relationship Specialty Start Date End Date Urbano Denis DO [address] [place] [address] PCP - General 09/03/12 03/17/22 Ruchi Valles RN Nurse Clinic Transplant Surgery 07/30/15 documented as of this encounter
--- OUTSIDE RECORDS SUMMARY | 2024-02-14 11:26 | XMS_ITS | Encounter Summary ---
[place] [address] Care Team Providers Care Preform Machine Operator Name Role Phone AdeelUrbano DO Primary Care Provider [phone] Reason for Visit * Reason Onset Date Comments Medication Refill 08/19/2017 Encounter Details Date Type Department Care Team (Late st Contact Info) Description 08/19/2017 Refill [place] [address] Joanne Nogueira CMA Social History Tobacco Use [...] Telephone Encounter - Joanne Nogueira CMA - 08/19/2017 8:58 AM EST Patient's left message on refill request line for K-Phos 500 mg to be called in to [facility]. documented in this encounter Plan of Treatment Upcoming Encounters Date Type Department Care Team (Late st Contact Info) Description 04/15/2024 10:00 AM EDT Hospital Encounter Non[place] [address] Arrived documented as of this encounter Goals Goal Patient Goal Type Associated Problems Recent Progress Patient-Stated? Author DH Home Medication Compliance and Understanding Patient Facing Action Plan On track( 017 10:41 AM EDT) Selena Scott, [facility] Note: Patient Goal: Clear hepatitis C Timeframe to meet goal: within 12 weeks of therapy documented as of this encounter Visit Diagnoses Not on filedocumented in this encounter Care Teams Preform Machine Operator Relationship Specialty Start Date End Date Urbano Denis DO [address] [place] [address] [address] [facility] [address] [place] [address] PCP - General 09/03/12 03/17/22 Ruchi Valles RN Nurse Clinic Transplant Surgery 07/30/15 documented as of this encounter
--- OUTSIDE RECORDS SUMMARY | 2024-02-14 11:26 | XMS_ITS | Encounter Summary ---
[place] [address] Care Team Providers Care Learning Support Services Director Name Role Phone Urbano Denis DO Primary Care Provider [phone] Reason for Visit * Reason Onset Date Comments Medication Refill 12/12/2016 Encounter Details Date Type Department Care Team (Late st Contact Info) Description 12/10/2016 Refill [place] [address] Joanne Nogueira CMA Social History Tobacco Use [...] Encounter - Joanne Nogueira CMA - 12/12/2016 12:12 PM EDT Case # [id number] Spoke with [facility] staff, Brandee. Medicare part C paid claim 12/12/16. (This medication should be billed through Medicare part B and does not need a PA.) * Telephone Encounter - Joanne Nogueira CMA - 12/11/2016 8:35 AM EDT Patient's states that she spoke with [employer]. May need prior authorization. Yash will be out of Cellcept middle of next week. Patient's states his Prograf was recently changed to 2 in AM and 1 in PM. Requesting we call to initiate a PA for Prograf and Cellcept. * Telephone Encounter - Joanne Nogueira CMA - 12/10/2016 12:31 PM EDT Left message on ID v/m. Prograf and mycophenolate may need to go through specialty pharmacy. * Telephone Encounter - Joanne Nogueira CMA - 12/10/2016 12:29 PM EDT ----- Message from Mara Kimble sent at 12/10/2016 11:02 AM EDT ----- Regarding: rx's Contact: Patient's , Mara, called. She wants 3 mo scripts sent to [employer] as it would be much easierthan calling [facility] every month. mycophenylate Prograf Flomax Calcitriol K-Phos documented in this encounter Plan of Treatment Upcoming Encounters Date Type Department Care Team (Late st Contact Info) Description 04/15/2024 10:00 AM EDT Hospital Encounter Non-[place] [address] Arrived documented as of this encounter Goals Goal Patient Goal Type Associated Problems Recent Progress Patient-Stated? Author [facility] Medication Compliance and Understanding Patient Facing Action Plan On track( 017 10:41 AM EDT) No Selena Cisneros [facility] Note: Patient Goal: Clear hepatitis C Timeframe to meet goal: within 12 weeks of therapy documented as of this encounter Visit Diagnoses Not on filedocumented in this encounter Care Teams Learning Support Services Director Relationship Specialty Start Date End Date Urbano Denis DO [address] [place] [address] PCP - General 09/03/12 03/17/22 Ruchi Valles RN Nurse Clinic Transplant Surgery 07/30/15 documented as of this encounter
[2024-02-14 11:27] LABS: Abs Immature Grans 0.04 10^3/uL (0.0-0.06); Absolute Lymphocyte Count 1.23 10^3/uL (1.2-3.4); Basophils % 0.4 %; Eosinophils % 1.8 %; HCT 42.4 % (40.0-50.0); Immature Grans % 0.4 %; Lymphocytes % 10.8 %; MCH 30.2 pg (27.0-33.0); MCV 92 fL (80-95); MPV 9.6 fL (8.0-11.0); Monocytes % 8.5 %; Neutrophils % 78.1 %; Platelet Count 228 10^3/uL (130-400); RBC 4.63 10^6/uL (4.36-5.78); RDW 13.3 % (11.8-14.1); RDW-SD 44.4 fL; WBC 11.35 10^3/uL (4.4-10.8)
--- OUTSIDE RECORDS SUMMARY | 2024-02-14 11:27 | XMS_ITS | Encounter Summary ---
Author Organization [facility] [place] [address] Care Team Providers Care Planogrammer Name Role Phone Urbano Denis DO Primary Care Provider Encounter Details Date Type Department Care Team (Late st Contact Info) Description 08/08/2016 Orders [place] [address] Franko Kim MD [facility] [place] [address] Chronic hepatitis C without hepatic coma Social History Tobacco Use Types Packs/Day Years [...] AM EDT Hospital Encounter Non-[place] [address] Arrived documented as of this encounter Visit Diagnoses Diagnosis Chronic hepatitis C without hepatic coma documented in this encounter Care Teams Planogrammer Relationship Specialty Start Date End Date Urbano Denis DO [facility] [address] [place] [address] PCP - General 09/03/12 03/17/22 Hai STANLEY,Ruchi Nurse Clinic Transplant Surgery 07/30/15 documented as of this encounter
--- OUTSIDE RECORDS SUMMARY | 2024-02-14 11:27 | XMS_ITS | Encounter Summary ---
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 ; Vitamin D deficiency ; Aftercare following organ transplant; CAH (chronic active hepatitis); Essential hypertension; Chronic hepatitis C without hepatic coma; Ureteral stricture Social History Tobacco Use Types Packs/Day Years [...] Sign Reading Time Taken Comments Blood Pressure 125/62 09/15/2016 10:34 AM EDT Pulse 66 09/15/2016 10:34 AM EDT Temperature 36.7 ??C (98 ??F) 09/15/2016 10:34 AM EDT Respiratory Rate 12 09/15/2016 10:34 AM EDT Oxygen Saturation 98% 09/15/2016 10:34 AM EDT Inhaled Oxygen Concentration - - Weight 94.3 kg (208 lb) 09/15/2016 10:34 AM EDT Height 177.8 cm (5' 10) 09/15/2016 10:34 AM EDT Body Mass Index 29.84 09/15/2016 10:34 AM EDT documented in this encounter Progress Notes * Shadi Wagner, DO - 09/15/2016 10:00 AM EDT [facility] Transplant Nephrology Follow Up Date: 09/15/16 Patient: Ethel Akins Transplant Date: 09/16/15 Transplant organ/Indication: Kidney / DM, HTN History of Present Illness: 65 y.o. male w/ hx of HCV, DM, HTN who is s/p donor kidney transplant 09/16/15. Patient presents to transplant clinic for follow-up after recurrent UTIs and patient is now s/p ureteral reconstructive surgery. Previous Tx Hx: 0% PRA. Patient given Basliximab for induction. EBV +/+, CMV +/+ ? Interim Hx: Patient has a history of recurrent UTIs and is now s/p ureteral reconstructive surgery. Patient recently seen and ID and is on Harvoni treatment for HCV that was diagnosed in 2015 (patient received kidney transplant from HCV donor). Patient drinks 2L fluids/day. Has Hga1c 6.9 now, will see PCP for treatment. ? Healthcare maintenance for a transplant recipient: Immunizations [...] for diabetics, every 5 for non diabetics [place] kidney ultrasound looking for renal cell CA, every 5 years post transplant Bone density assessment every 9-12 years post transplant Annual fasting lipid profile Annual PTH-Vit D3 assessment until normalized Annual 24 hour timed urine for creatinine, protein, calcium, phosphate, magnesium ROS: Denies fevers, chills, nausea, vomiting, diarrhea, abd pain, chest pain, sob. No other positives ornegatives. Medications: Prior to Admission medications Medication Sig Start Date End Date Taking? Authorizing Provider ledipasvir-sofosbuvir 90-400 mg Tablet Take 1 tablet by mouth daily for 84 days. 08/08/16 10/31/16 YesFranko Kim MD tacrolimus (PROGRAF) 1 mg Capsule Take 1 capsule by mouth 2 times daily. Take one capsule in the morning and one capsule in the evening. Code Z94.0 06/25/16 Yes Jay Vargas MD potassium phosphate, monobasic, (K-PHOS) 500 mg Tablet, Soluble Take 3 tabs at lunch time and 3 tabs at bedtime 06/25/16 Yes Jay Vargas MD ascorbic acid, vitamin C, (VITAMIN C) 500 mg Tablet Take 1 tablet by mouth 3 times daily. 06/25/16 Yes Jay Vargas MD clopidogrel (PLAVIX) 75 mg Tablet Take 75 mg by mouth daily. Yes PROVIDER, HISTORICAL calciTRIol (ROCALTROL) 0.5 mcg Capsule Take 1 capsule by mouth daily. 06/18/16 06/18/17 Yes Que Amaro MD tamsulosin (FLOMAX) 0.4 mg Capsule, Sust. Release 24 hr Take 1 capsule by mouth nightly. 06/18/16 06/18/17 Yes Que Amaro MD Magnesium Gluconate 27 mg (500 mg) Tablet Take 6 tablets at breakfast and at dinner 05/28/16 Yes Victor Manuel Torre MD sulfamethoxazole-trimethoprim (BACTRIM;SEPTRA) 400-80 mg Tablet Take 1 tablet by mouth daily. 05/28/16 Yes Victor Manuel Torre MD levothyroxine (SYNTHROID) 100 mcg Tablet Take 100 mcg by mouth daily. 04/22/16 Yes PROVIDER, HISTORICAL mycophenolate (CELLCEPT) 250 mg Capsule Take 1 capsule by mouth 2 times daily. 01/03/16 Yes Victor Manuel Torre MD acetaminophen (TYLENOL) 500 mg Tablet Take 1,000 mg by mouth every 6 hours as needed for Pain. Reported on 09/15/2016 PROVIDER, HISTORICAL Allergies / ADRs: No Known Allergies PHYSICAL EXAM: Vitals: 09/15/16 1034 BP: 125/62 Pulse: 66 Resp: 12 Temp: 36.7 ??C (98 ??F) Gen - AAO x 3 in NAD Skin - No exanthem. HEENT - Mucous membranes moist. Chest: Lungs clear to ausculatation w/o wheezes/ rhonchi/ crackles. Heart - S1 and S2 clear w/o murmur, gallop, or rub. JVP not elevated. Abd - Soft. + BS. No bruit. Non tender. No organomegaly. Ext - Warm. No cyanosis. No dependent edema. Labs/ Imaging: Results for ETHEL AKINS ( ) as of 09/15/2016 10:58 Ref. Range 09/15/2016 09:38 WBC Latest Ref Range: 4.0 - 9.5 x10(3)/mcL 6.0 RBC Latest Ref Range: 4.58 - 5.54 x10(6)/mcL 5.05 Hemoglobin Latest Ref Range: 13.7 - 16.5 gm/dL 15.7 Hematocrit Latest Ref Range: 40.5 - 48.5 % 44.2 MCV Latest Ref Range: 82.9 - 93.1 fL 87.5 MCH Latest Ref Range: 27.5 - 32.1 pg 31.1 MCHC Latest Ref Range: 32.0 - 35.7 gm/dL 35.5 RDWSD Latest Ref Range: 36.0 - 45.0 fL 39.8 RDWCV Latest Ref Range: 11.4 - 13.8 % 12.4 Platelets Latest Ref Range: 145 - 357 x10(3)/mcL 238 MPV Latest Ref Range: 7.6 - 12.9 fL 9.2 nRBC % Auto Latest Units: % 0.0 nRBC Abs Auto Latest Ref Range: 0.000 - 0.000 x10(3)/mcL 0.000 Neutr Abs (ANC) Latest Ref Range: 1.70 - 6.10 x10(3)/mcL 3.73 Neutrophils % Latest Units: % 61.7 Immature Gran % Latest Units: % 0.20 Lymphocytes % Latest Units: % 25.6 Monocytes % Latest Units: % 8.4 Eosinophils % Latest Units: % 3.1 Basophils % Latest Units: % 1.0 Ayesha Gran Abs Latest Ref Range: 0.00 - 0.04 x10(3)/mcL 0.01 Lymphocytes Abs Latest Ref Range: 0.9 - 3.2 x10(3)/mcL 1.6 Monocyte Abs Latest Ref Range: 0.3 - 0.9 x10(3)/mcL 0.5 Eosinophils Abs Latest Ref Range: 0.0 - 0.4 x10(3)/mcL 0.2 Basophils Abs Latest Ref Range: 0.0 - 0.1 x10(3)/mcL 0.1 Sodium Latest Ref Range: 135 - 145 mmol/L 137 Potassium Latest Ref Range: 3.5 - 5.0 mmol/L 3.6 Chloride Latest Ref Range: 98 - 107 mmol/L 101 CO2 Latest Ref Range: 22 - 31 mmol/L 24 Anion Gap Latest Ref Range: 5 - 15 mmol/L 12 BUN Latest Ref Range: 10 - 20 mg/dL 20 Creatinine Latest Ref Range: 0.80 - 1.50 mg/dL 1.30 Estimated GFR Latest Ref Range: >=60 55 (L) Glucose Fasting Latest Ref Range: 65 - 99 mg/dL 130 (H) Calcium Latest Ref Range: 8.5 - 10.5 mg/dL 9.7 Magnesium Latest Ref Range: 0.69 - 1.07 mmol/L 0.77 Hemoglobin A1C Latest Ref Range: 4.3 - 5.6 % 6.9 (H) Est Avg Gluc Latest Units: mg/dL 151 Phosphorus Latest Ref Range: 2.5 - 4.5 mg/dL 3.1 Uric Acid Latest Ref Range: 3.5 - 8.5 mg/dL 7.7 Total Protein Latest Ref Range: 6.1 - 8.0 gm/dL 7.5 Albumin Latest Ref Range: 3.2 - 5.2 gm/dL 4.0 Total Bilirubin Latest Ref Range: 0.2 - 1.3 mg/dL 1.2 Bili, Direct Latest Ref Range: 0.0 - 0.3 mg/dL 0.3 Alk Phos Latest Ref Range: 40 - 120 unit/L 62 AST Latest Ref Range: 0 - 39 unit/L 15 ALT Latest Ref Range: 0 - 55 unit/L 16 Chol, Total Latest Ref Range: <=239 mg/dL 123 HDL Latest Ref Range: >=40 mg/dL 38 (L) Chol/HDL Ratio Latest Units: ratio 3.2 Triglycerides Latest Ref Range: <=199 mg/dL 106 LDL Cholesterol Latest Ref Range: <=190 mg/dL 64 Lipid Interpretation Unknown See Note PTH Latest Ref Range: 15 - 65 pg/mL 36 Impression/ Plan: Mr. Akins is a 66 yr old gentleman w/ hx of kidney transplant who presents to clinic for f/u Transplant Status -s/p donor kidney transplant -Creatinine improved 1.3mg/dL -Drinks 2L fluids/day -Patient now has DM with Hga1c 6.9, will start treatment with PCP soon -Screening needed: vision, dental. Immunosuppression -Prograf, Cellcept PO4/Mg -Phos 3.1. Continue Kphos. -Mag 0.7. Decrease Magnesium to 1500mg BID. Hypertension -BP 125/62. Flomax Hepatitis C -on Harmoni treatment -Viral load unremarkable x<15 after treatment -ID following Follow up: RTC: 6 months Shadi Wagner DO Pager #[phone] I reviewed all of the above findings and assessment of Dr. Wagner, edited the above note to reflect my assessment and examination and formulated the recommendations which accurately reflect mine. * Herlinda Bell, RD - 09/15/2016 10:00 AM EDT [facility] Post Transplant Nutrition Follow Up Date: 09/16/2016 Patient: Ethel Akins Transplant Date: 09/16/15 [place] organ UNOS diagnosis: Transplant: Mr. Ethel Akins is a White Not nor 66 y.o. male who is Status Post Kidney transplantation on 09/16/15. Patient was seen by Nutrition services on 09/16/2016 for follow up for his first year anniversary of his transplant. Patient is doing the best he has since the transplant surgery. He has had ureteral reconstructive surgery and is now being treated for his Hep C with great results. Wt Readings from Last 3 Encounters: 09/15/16 94.3 kg (208 lb) 09/10/16 95.3 kg (210 lb) 08/12/16 99.3 kg (219 lb) Today's vital signs: BP 125/62 (BP Location (NBP): Right arm, Patient Position: Sitting, BP Cuff Sizes: Large Adult (32-43 cm)) Pulse 66 Temp 36.7 ??C (98 ??F) (Oral) Resp 12 Ht 177.8 cm (5' 10) Wt 94.3 kg (208 lb) SpO2 98% BMI 29.84 kg/m2 Estimated body mass index is 29.84 kg/(m^2) as calculated from the following: Height as of this encounter: 177.8 cm (5' 10). Weight as of this encounter: 94.3 kg (208 lb). Weight pre-Txp: 100.7 Kg (222 lbs) Lab Results Component Value Date HGB 15.7 09/15/2016 HCT 44.2 09/15/2016 NA 137 09/15/2016 K 3.6 09/15/2016 BUN 20 09/15/2016 CREATININE 1.30 09/15/2016 GLUCOSE 106 09/10/2016 CALCIUM 9.7 09/15/2016 MAGNESIUM 0.77 09/15/2016 PHOS 3.1 09/15/2016 ALBUMIN 4.0 09/15/2016 HA1C 6.9 09/15/2016 Cholesterol (in eD-H the component name CHLPL=Cholesterol) Lab Results Component Value Date CHLPL 123 09/15/2016 HDL 58 09/15/2016 TG 106 09/15/2016 LDL 64 09/15/2016 Assessment: This news writer reviewed patient's labs with him and his . Since his ureter surgery patient's BUN and Creat and overall kidney function have improved dramatically. HA1C fairly well-controlled for someone with existing diabetes, diet controlled; expect that this percent average could have been raised by his last 3 visits prior to this one where glucose was 258, 200, and 330; patient was eating increased amounts of sweets and states that he has decreased this significantly. Plan: Patient will return to see us in 6 months. This news writer encouraged patient to continue with decreased sweets intake as well as very large portions of carbohydrate per meal; he should limit to ~60gms CHO per meal. Remain available for any questions should any nutrition questions arise. documented in this encounter Plan of Treatment Upcoming Encounters Date Type Department Care Team (Late st Contact Info) Description 04/15/2024 10:00 AM EDT Hospital Encounter Non[place] [id number] Arrived documented as of this encounter Goals Goal Patient Goal Type Associated Problems Recent Progress Patient-Stated? Author DH Home Medication Compliance and Understanding Patient Facing Action Plan On track( 017 10:41 AM EDT) Selena Scott [facility] Note: Patient Goal: Clear hepatitis C Timeframe to meet goal: within 12 weeks of therapy documented as of this encounter Results * Urinalysis with reflex Culture (09/15/2016 9:57 AM EDT) Glucose, Urine Dipstick Negative Negative mg/dL [facility] Protein, Urine Dipstick Negative Negative mg/dL [facility] Bilirubin, Urine Dipstick Negative Negative mg/dL [facility] Comment: Clinical correlation required for positive Urine Bilirubin results as false positive may occur with some drugs and drug related products. If a false positive is suspected a serum total bilirubin should be considered if clinically indicated. Urobilinogen, Urine Dipstick Normal Normal mg/dL [facility] pH, Urn (dipstick) 6.0 5.0 - 8.0 [facility] Blood, Urine Dipstick Negative Negative mg/dL [facility] Ketone, Urine Dipstick Negative Negative mg/dL [facility] Nitrite, Urine Dipstick Negative Negative [facility] Leukocytes, Urine Dipstick Negative Negative [facility] Appearance, Urine Dipstick Clear Clear [facility] Specific [place] Urine Automated 1.016 1.002 - 1.030 [facility] Color, Urine Dipstick Yellow Yellow [facility] RBC, Urine 1 0 - 3 /HPF [facility] WBC, Urine 1 0 - 3 /HPF [facility] Reflex to Culture No [facility] Urine specimen obtained by clean catch procedure (specimen) 09/15/2016 9:57 AM EDT 09/15/2016 10:07 AM EDT Narrative Resulting Agency Comment Spec In Lab Tal Eagle MD URINE ORDERABLES Performing Organization Address City/[facility]/ZIP Co de Phone Number [facility] [place] [address] * (ABNORMAL) Protein/Creatinine Ratio, urine (09/15/2016 9:57 AM EDT) Creatinine, Urine 83 mg/dL [facility] Protein, Urine 14(H) 0 - 12 mg/dL [facility] Protein / Creatinine Ratio, Urine 0.2 ratio [facility] Urine specimen (specimen) 09/15/2016 9:57 AM EDT 09/15/2016 10:13 AM EDT Narrative Resulting Agency Comment Spec In Lab Tal Eagle MD URINE ORDERABLES Performing Organization Address [facility] Co de Phone Number [facility] [place] [address] * Phosphorus, urine, random (09/15/2016 9:57 AM EDT) Phosphorus, Urine 56.0 mg/dL [facility] Urine specimen (specimen) 09/15/2016 9:57 AM EDT 09/15/2016 10:13 AM EDT Narrative Resulting Agency Comment Spec In Lab Tal Eagle MD URINE ORDERABLES Performing Organization Address City/[facility]/ZIP Co de Phone Number [facility] [place] [address] * Calcium Creatinine Ratio, random urine (09/15/2016 9:57 AM EDT) Calcium, Urine 13.0 mg/dL [facility] Creatinine, Urine 83 mg/dL [facility] Calcium / Creatinine Ratio, Urine 0.16 ratio [facility] Urine specimen (specimen) 09/15/2016 9:57 AM EDT 09/15/2016 10:13 AM EDT Narrative Resulting Agency Comment Spec In Lab Tal Eagle MD URINE ORDERABLES Performing Organization Address City/[facility]/ZIP Co de Phone Number [facility] [place] [address] * (ABNORMAL) Vitamin D, 25-Hydroxy (09/15/2016 9:38 AM EDT) Vitamin D Total 25 OH 16(L) 30 - 100 ng/mL [facility] Comment: Deficient <10 ng/mL Insufficient 10 to 29 ng/mL Sufficient 30 to 100 ng/mL Potential Intoxication >100 ng/mL According to the [place] National Osteoporosis Foundation, Vitamin D concentrations >30 ng/mL are sufficient to protect bone health. ??The National Kidney Foundation has similarly stated that patients with Vitamin D concentrations <30ng/mL should be considered to be insufficient or deficient. http://[employer]/DHnatlkidneyfoundation http://[employer]/DHMCVitD The [employer] Vitamin D Immunoassay detects both 25-OH Vitamin D2 and 25-OH Vitamin D3, but only a total Vitamin D concentration is reported. Blood specimen (specimen) 09/15/2016 9:38 AM EDT 09/15/2016 12:08 PM EDT Narrative Resulting Agency Comment Spec In Lab Tal Eagle MD CHEMISTRY ORDERAB LES Performing Organization Address [facility] Co de Phone Number [facility] [place] [address] * Uric acid (09/15/2016 9:38 AM EDT) Uric Acid 7.7 3.5 - 8.5 mg/dL [facility] Blood specimen (specimen) 09/15/2016 9:38 AM EDT 09/15/2016 9:44 AM EDT Narrative Resulting Agency Comment Spec In Lab Tal Eagle MD CHEMISTRY ORDERAB LES Performing Organization Address [facility] Co de Phone Number [facility] [place] [address] * Tacrolimus level (09/15/2016 9:38 AM EDT) Tacrolimus 3.4 ng/mL [facility] Comment: Trough therapeutic: ??5-15 ng/mL Performed by ultra-performance liquid chromatography tandem mass spectrometry (UPLCMS/MS). Blood specimen (specimen) 09/15/2016 9:38 AM EDT 09/15/2016 10:07 AM EDT Narrative Resulting Agency Comment Spec In Lab Tal Eagle MD CHEMISTRY ORDERAB LES Performing Organization Address [facility] Co de Phone Number [facility] [place] [address] * PTH (09/15/2016 9:38 AM EDT) Parathyroid Hormone 36 15 - 65 pg/mL [facility] Blood specimen (specimen) 09/15/2016 9:38 AM EDT 09/15/2016 9:44 AM EDT Narrative Resulting Agency Comment Spec In Lab Tal Eagle MD CHEMISTRY ORDERAB LES Performing Organization Address [facility] Co de Phone Number [facility] [place] [address] * Phosphorus (09/15/2016 9:38 AM EDT) Phosphorus 3.1 2.5 - 4.5 mg/dL [facility] Blood specimen (specimen) 09/15/2016 9:38 AM EDT 09/15/2016 9:44 AM EDT Narrative Resulting Agency Comment Spec In Lab Tal Eagle MD CHEMISTRY ORDERAB LES [facility] [place] [address] * Magnesium (09/15/2016 9:38 AM EDT) Magnesium 0.77 0.69 - 1.07 mmol/L [facility] Blood specimen (specimen) 09/15/2016 9:38 AM EDT 09/15/2016 9:44 AM EDT Narrative Resulting Agency Comment Spec In Lab Tal Eagle MD CHEMISTRY ORDERAB LES Performing Organization Address [facility] Co de Phone Number [facility] [place] [address] * (ABNORMAL) Lipid Panel (09/15/2016 9:38 AM EDT) Cholesterol, Total 123 <=239 mg/dL [facility] Triglyceride 106 <=199 mg/dL [facility] HDL Cholesterol 38(L) >=40 mg/dL [facility] LDL Cholesterol 64 <=190 mg/dL [facility] Cholesterol/HDL Ratio 3.2 ratio [facility] Lipid Interpretation See Note [facility] Comment: Lipid management should be guided by a patient? s ASCVD risk, goals and preferences. ACC/AHA Guidelines recommend high intensity statin if clinical ASCVD or LDL greater than or equal to 190 mg/dL. http://circ.ahajournals.org/content/early/.cir.6879057488.91390.7a Adults aged 40-75 with LDL 70-189 mg/dL should have their 10 year ASCVD risk estimated with the ACC/AHA ASCVD risk project estimator http://tools.acc.org/DFEGR-Tkit-Unmbtbwqo/ Statin should be discussed if risk greater [...] of ASCVD risk reduction. Blood specimen (specimen) 09/15/2016 9:38 AM EDT 09/15/2016 9:44 AM EDT Narrative Resulting Agency Comment Spec In Lab Tal Eagle MD CHEMISTRY ORDERAB LES Performing Organization Address [facility] Co de Phone Number [facility] [place] [address] * Lavender Tube HOLD (09/15/2016 9:38 AM EDT) Lavender Hold Sample in lab. [facility] Blood specimen (specimen) 09/15/2016 9:38 AM EDT 09/15/2016 9:44 AM EDT Tal Eagle MD HEMATOLOGY ORDERA BLES Performing Organization Address [facility] de Phone Number [facility] [place] [address] * (ABNORMAL) Hemoglobin A1c (09/15/2016 9:38 AM EDT) Hemoglobin A1c 6.9(H) 4.3 - 5.6 % [facility] [...] Mellitus, Diabetes Care 2013; 36: Suppl. 1, F03-14 Estimated Average Glucose 151 mg/dL [facility] Comment: eAG equivalents for HbA1c percentages: HbA1c(%) ?eAG(mg/dL) 6.0 ?126 6.5 ?140 7.0 ?154 7.5 ?169 8.0 ?183 8.5 ?197 9.0 ?212 9.5 ?226 10.0 ? 240 Limitations: The eAG calculation has not been validated on women, individuals below 18 years old and above 70 years old, and individuals with hemoglobinopathies. Additional resources are available on the ADA website: http://24h00.wumo/DHMCadacalc Harjeet MENDOSA, Chanel J, Philip R, et al. ??Translating the A1C assay into estimated average glucose values. ??Diabetes Care 2008:31(8):5418-8236. Blood specimen (specimen) 09/15/2016 9:38 AM EDT 09/15/2016 9:44 AM EDT Narrative Resulting Agency Comment Spec In Lab Tal Eagle MD CHEMISTRY ORDERAB LES Performing Organization Address City/[facility]/ZIP Co de Phone Number [facility] [place] [address] * Gold Tube HOLD (09/15/2016 9:38 AM EDT) Gold Hold Sample in lab. [facility] Blood specimen (specimen) 09/15/2016 9:38 AM EDT 09/15/2016 9:44 AM EDT Tal Eagle MD CHEMISTRY ORDERAB LES Performing Organization Address City/[facility]/ZIP Co de Phone Number [facility] [place] [address] * (ABNORMAL) CMP w/fasting Glucose (09/15/2016 9:38 AM EDT) [facility] Glucose Fasting 130(H) 65 - 99 mg/dL [facility] Comment: ?Fasting* Glucose Interpretive Criteria [...] of Diabetes Mellitus, Position Statement from the [place] [employer]. ??Diabetes Care, Volume 33, Supplement 1, Jul 2009 Blood Urea Nitrogen 20 10 - 20 mg/dL [facility] Creatinine 1.30 0.80 - 1.50 mg/dL [facility] Comment: Please note that the pediatric reference intervals supplied above were not validated at [facility]. Results from pediatric patients should be interpreted in conjunction to the patient's age, height and muscle mass. Sodium 137 135 - 145 mmol/L [facility] Potassium 3.6 3.5 - 5.0 mmol/L [facility] Comment: Please note: ??Patients with WBC >100,000 may have falsely elevated Potassium levels. ??For accurate Potassium quantification in these patients send serum separator tube (gold top) for subsequent determinations. ??Contact the Clinical Chemistry Laboratory if there are any questions. Chloride 101 98 - 107 mmol/L [facility] Carbon Dioxide 24 22 - 31 mmol/L [facility] Anion Gap 12 5 - 15 mmol/L [facility] Calcium 9.7 8.5 - 10.5 mg/dL [facility] Protein, Total 7.5 6.1 - 8.0 gm/dL [facility] Albumin 4.0 3.2 - 5.2 gm/dL [facility] Aspartate Aminotransferase 15 0 - 39 unit/L [facility] Alanine Aminotransferase 16 0 - 55 unit/L [facility] Alkaline Phosphatase 62 40 - 120 unit/L [facility] Bilirubin, Total 1.2 0.2 - 1.3 mg/dL [facility] Bilirubin, Direct 0.3 0.0 - 0.3 mg/dL [facility] Est Glomerular Filtration Rate 55(L) >=60 [facility] Comment: This estimated GFR (eGFR) [...] the following links into your internet browser. [email or web address] [email or web address] Blood specimen (specimen) 09/15/2016 9:38 AM EDT 09/15/2016 9:44 AM EDT Narrative Resulting Agency Comment Spec In Lab Tal Eagle MD CHEMISTRY ORDERAB LES [facility] [place] [address] * (ABNORMAL) 1,25-dihydroxycholecalciferol (09/15/2016 9:38 AM EDT) Vit D 1,25 Dihydroxy (NOVEMBER) 65(H) 18 - 64 pg/mL [facility] Comment: ADDITIONAL INFORMATION This test was developed and its performance characteristics determined by [facility] in a manner consistent with CLIA requirements. This test has not been cleared or approved by the [place] Food and Drug Administration. Test Performed by: Berg [address] [address] Blood specimen (specimen) 09/15/2016 9:38 AM EDT 09/15/2016 11:07 AM EDT Narrative Resulting Agency Comment Spec In Lab Tal Eagle MD LAB SEND OUT ORDE RABLES [facility] [place] [address] * Uric acid, urine, 24 hour (09/15/2016 6:00 AM EDT) U24 Uric Conc 38.4 mg/dL [facility] Uric Acid, 24 Hour Urine 0.58 0.25 - 0.80 gm/24hr [facility] Urine specimen (specimen) 09/15/2016 6:00 AM EDT 09/15/2016 11:16 AM EDT Narrative Resulting Agency Comment Spec In Lab Tal Eagle MD URINE ORDERABLES Performing Organization Address [facility]/ZIP Co de Phone Number [facility] [place] [address] * (ABNORMAL) Protein, urine, 24 hour (09/15/2016 6:00 AM EDT) Protein Concentration, U24 14 <=80 mg/dL [facility] Protein, 24 Hour Urine 0.21(H) <=0.15 gm/24hr [facility] Urine specimen (specimen) 09/15/2016 6:00 AM EDT 09/15/2016 11:16 AM EDT Narrative Resulting Agency Comment Spec In Lab Tal Eagle MD URINE ORDERABLES Performing Organization Address City/[facility]/ZIP Co de Phone Number [facility] [place] [address] * Phosphorus, urine, 24 hour (09/15/2016 6:00 AM EDT) Phosphorus Concentration, U24 70.2 mg/dL [facility] Phosphorus, 24 Hour Urine 1.1 0.4 - 1.3 gm/24hr [facility] Urine specimen (specimen) 09/15/2016 6:00 AM EDT 09/15/2016 11:16 AM EDT Narrative Resulting Agency Comment Spec In Lab Tal Eagle MD URINE ORDERABLES Performing Organization Address City/[facility] Co de Phone Number [facility] [place] [address] * Creatinine, urine, 24 hour (09/15/2016 6:00 AM EDT) Cre Concentration, U24 113 mg/dL [facility] Creatinine, 24 Hour Urine 1.70 0.80 - 1.90 gm/24hr [facility] Urine specimen (specimen) 09/15/2016 6:00 AM EDT 09/15/2016 11:16 AM EDT Narrative Resulting Agency Comment Spec In Lab Tal Eagle MD URINE ORDERABLES Performing Organization Address [facility] Co de Phone Number [facility] [place] [address] * Creatinine Clearance, urine, 24 hour (09/15/2016 6:00 AM EDT) Creatinine Clearance, 24 Hour Urine 91 90 - 139 mL/min [facility] Cre Concentration, U24 113 mg/dL [facility] Creatinine, 24 Hour Urine 1.70 0.80 - 1.90 gm/24hr [facility] Urine specimen (specimen) 09/15/2016 6:00 AM EDT 09/15/2016 11:16 AM EDT Narrative Resulting Agency Comment Spec In Lab Tal Eagle MD URINE ORDERABLES Performing Organization Address City/[facility] Co de Phone Number [facility] [place] [address] * Calcium, urine, 24 hour (09/15/2016 6:00 AM EDT) Ca Concentration, U24 12.9 mg/dL [facility] Calcium, 24 Hour Urine 193.5 50.0 - 300.0 mg/24hr [facility] Comment:Reference Range: 50. 0-300.0 mg/24 hour based on diet. 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 of 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 drug Vitamin D deficiency Unspecified vitamin D deficiency Aftercare following organ transplant CAH (chronic active hepatitis) Other chronic hepatitis Essential hypertension Unspecified essential hypertension Chronic hepatitis C without hepatic coma Ureteral stricture Stricture or kinking of ureter documented in this encounter Care Teams Textile Designer Relationship Specialty Start Date End Date Urbano Denis DO [address] [place] [address] PCP - General 09/03/12 03/17/22 Ruchi Valles RN Nurse Clinic Transplant Surgery 07/30/15 documented as of this encounter
--- OUTSIDE RECORDS SUMMARY | 2024-02-14 11:27 | XMS_ITS | Encounter Summary ---
Author Organization [facility] [place] [address] Care Team Providers Care Fish Filleter Name Role Phone Urbano Denis DO Primary Care Provider [phone] Encounter Details Date Type Department Care Team (Latest Contact Info) Description 06/18/2016 10:30 AM EST Laboratory Appointment Lab [address] [place] [address] Kidney replaced by transplant Social History Tobacco [...] AM EDT Hospital Encounter [place] [id number] Arrived documented as of this encounter Procedures Procedure Name Priority Date/Time Associated Diagnosis Comments PROTEIN/CREATININE RATIO, URINE STAT 06/18/2016 10:57 AM EST Kidney replaced by transplant URINALYSIS WITH REFLEX CULTURE STAT 06/18/2016 10:57 AM EST Kidney replaced by transplant URINE CULTURE STAT 06/18/2016 10:57 AM EST BK QUANT BLOOD RESULT STAT 06/18/2016 10:44 AM EST Kidney replaced by transplant BKV QUANT BLOOD STAT 06/18/2016 10:44 AM EST Kidney replaced by transplant HEMOGRAM STAT 06/18/2016 10:44 AM EST Kidney replaced by transplant DIFFERENTIAL, AUTOMATED STAT 06/18/2016 10:44 AM EST Kidney replaced by transplant TACROLIMUS LEVEL STAT 06/18/2016 10:4 4 AM EST Kidney replaced by transplant CYCLOSPORINE A LEVEL STAT 06/18/2016 10:44 AM EST Kidney replaced by transplant RETICULOCYTE COUNT STAT 06/18/2016 10 :44 AM EST Kidney replaced by transplant CBC (WITH DIFF) STAT 06/18/2016 10:44 AM EST Kidney replaced by transplant URIC ACID STAT 06/18/2016 10:44 AM EST Kidney replaced by transplant PHOSPHORUS STAT 06/18/2016 10:44 AM EST Kidney replaced by transplant MAGNESIUM STAT 06/18/2016 10:44 AM EST Kidney replaced by transplant CHOLESTEROL, TOTAL STAT 06/18/2016 10 :44 AM EST Kidney replaced by transplant COMPREHENSIVE METABOLIC PANEL STAT 06/18/2016 10:44 AM EST Kidney replaced by transplant documented in this encounter Results * Urine culture (06/18/2016 10:57 AM EST) Urine Culture No growth (Less than 1,000 cfu/ml). [facility] Urine specimen obtained by clean catch procedure (specimen) 06/18/2016 10:57 AM EST 06/18/2016 11:44 AM EST Narrative Resulting Agency Comment Spec In Lab Que Amaro MD MICROBIOLOGY - GENERAL ORDERABLES [facility] [place] [address] * (ABNORMAL) Urinalysis with reflex Culture (06/18/2016 10:57 AM EST) Glucose, Urine Dipstick Negative Negative mg/dL [facility] Protein, Urine Dipstick 30(A) Negative mg/dL [facility] Bilirubin, Urine Dipstick Negative Negative mg/dL [facility] Comment: Clinical correlation required for positive Urine Bilirubin results as false positive may occur with some drugs and drug related products. If a false positive is suspected a serum total bilirubin should be considered if clinically indicated. Urobilinogen, Urine Dipstick 2.0(A) Normal mg/dL [facility] pH, Urn (dipstick) 6.0 5.0 - 8.0 [facility] Blood, Urine Dipstick Small(A) Negative mg/dL [facility] Ketone, Urine Dipstick Negative Negative mg/dL [facility] Nitrite, Urine Dipstick Negative Negative [facility] Leukocytes, Urine Dipstick Trace(A) Negative mcL [facility] Appearance, Urine Dipstick Clear Clear [facility] Specific Chrisman Urine Automated 1.025 1.002 - 1.030 [facility] Color, Urine Dipstick Yellow Yellow [facility] RBC, Urine 3 0 - 3 /HPF [facility] WBC, Urine 14(H) 0 - 3 /HPF [facility] Bacteria, Urine Rare(A) None /HPF [facility] Transitional Epithelial Cells, Urine 1 <=1 /HPF [facility] Renal Epithelial Cells, Urine <1(H) <=0 /HPF [facility] Amorphous Crystals, Urine Rare(A) None /HPF [facility] Reflex to Culture Yes [facility] Urine specimen obtained by clean catch procedure (specimen) 06/18/2016 10:57 AM EST 06/18/2016 10:58 AM EST Narrative Resulting Agency Comment Spec In Lab Que Amaro MD URINE ORDERABL ES Performing Organization Address [facility] Co de Phone Number [facility] [place] [address] * (ABNORMAL) Protein/Creatinine Ratio, urine (06/18/2016 10:57 AM EST) Creatinine, Urine 158 mg/dL [facility] Protein, Urine 24(H) 0 - 12 mg/dL [facility] Protein / Creatinine Ratio, Urine 0.2 ratio [facility] Urine specimen (specimen) 06/18/2016 10:57 AM EST 06/18/2016 11:15 AM EST Narrative Resulting Agency Comment Spec In Lab Que Amaro MD URINE ORDERABL ES Performing Organization Address [facility] Co de Phone Number [facility] [place] [address] * BK Quant Blood Result (06/18/2016 10:44 AM EST) BKV Blood Result Not Detected [facility] BKV Blood Interp BK Virus Plasma Result Interpretation Result: BK Virus not detected Specimen type: plasma Assay Range: 2.83-8.83 log copies/mL (6.8x10^2 - 6.8x10^8 copies/mL) Methods: Quantitative real-time polymerase chain reaction (PCR) of viral DNA isolated from plasma was performed using [employer] (formerly, [employer]) BKV analyte-specific reagents and the Applied Biosystems [...] [facility]) [facility] at [facility] [place]. It has not been cleared or approved by the FDA. The laboratory is regulated under CLIA as qualified to perform high-complexity testing. This test is used for clinical purposes. It should not be regarded as investigational or for research. [facility] Comment: [VERIFIED DATE]06.24.16 Verified By:Tal Cleaning (Electronic Signature) Blood specimen (specimen) 06/18/2016 10:44 AM EST 06/18/2016 2:24 PM EST Narrative Resulting Agency Comment Spec In Lab Que Amaro MD HEMATOLOGY ORD ERABLES [facility] [place] [address] * Differential, Automated (06/18/2016 10:44 AM EST) Neutrophil % 62.1 % [facility] Neutrophil Absolute 4.03 1.70 - 6.10 x10(3)/[facility] [place] [facility] Lymph % 22.7 % [facility] Lymphocytes Abs 1.5 0.9 - 3.2 x10(3)/[facility] [place] [facility] Monocyte % 8.0 % [facility] Monocyte Abs 0.5 0.3 - 0.9 x10(3)/[facility] [place] [facility] Eos % 5.5 % [facility] Eosinophils Abs 0.4 0.0 - 0.4 x10(3)/[facility] [place] [facility] Basophil % 1.2 % [facility] Baso Absolute 0.1 0.0 - 0.1 x10(3)/[facility] [place] [facility] Immature Gran % 0.50 % [facility] Comment: Immature granulocytes(IG's)percentage and absolute count will include metamyelocytes, myelocytes, and promyelocytes. Blood smears from CBCs yielding IG's will be scanned manually for concordance. If this scan disagrees with the automated IG or if promyelocytes are noted, a manual differential will be performed. Immature Gran Absolute 0.03 0.00 - 0.04 x10(3)/[facility] [place] [facility] Blood specimen (specimen) 06/18/2016 10:44 AM EST 06/18/2016 10:51 AM EST Narrative Resulting Agency Comment Spec In Lab Que Amaro MD HEMATOLOGY ORD ERABLES Performing Organization Address City/State/[facility] Co de Phone Number [facility] [place] [address] * (ABNORMAL) Hemogram (06/18/2016 10:44 AM EST) White Blood Cell 6.5 4.0 - 9.5 x10(3)/[facility] Red Blood Cell 4.37(L) 4.58 - 5.54 x10(6)/[facility] Hemoglobin 14.2 13.7 - 16.5 gm/dL [facility] Hematocrit 41.1 40.5 - 48.5 % [facility] Mean Cell Volume 94.1(H) 82.9 - 93.1 fL [facility] Mean Cell Hemoglobin 32.5(H) 27.5 - 32.1 pg [facility] Mean Cell Hemoglobin Concentration 34.5 32.0 - 35.7 gm/dL [facility] Platelet 199 145 - 357 x10(3)/[facility] RDW Standard Deviation 44.3 36.0 - 45.0 [facility] RDW coefficient of variation 12.9 11.4 - 13.8 % [facility] Mean Platelet Volume 9.4 7.6 - 12.9 [facility] NRBC% auto 0.0 % [facility] NRBC Absolute 0.000 0.000 - 0.000 x10(3)/[facility] Blood specimen (specimen) 06/18/2016 10:44 AM EST 06/18/2016 10:51 AM EST Narrative Resulting Agency Comment Spec In Lab Que Amaro MD HEMATOLOGY ORD ERABLES Performing Organization Address [facility] de Phone Number [facility] [place] [address] * Uric acid (06/18/2016 10:44 AM EST) Uric Acid 7.9 3.5 - 8.5 mg/dL [facility] Blood specimen (specimen) 06/18/2016 10:44 AM EST 06/18/2016 10:51 AM EST Narrative Resulting Agency Comment Spec In Lab Que Amaro MD CHEMISTRY ROCHELLE JENNINGS Performing Organization Address [facility] Phone Number [facility] [place] [address] * Tacrolimus level (06/18/2016 10:44 AM EST) Tacrolimus 4.0 ng/mL [facility] Comment: Trough therapeutic: ??5-15 ng/mL Performed by ultra-performance liquid chromatography tandem mass spectrometry (UPLCMS/MS). Blood specimen (specimen) 06/18/2016 10:44 AM EST 06/18/2016 1:23 PM EST Narrative Resulting Agency Comment Spec In Lab Que Amaro MD CHEMISTRY ROCHELLE JENNINGS Performing Organization Address [facility] de Phone Number [facility] [place] [address] * (ABNORMAL) Reticulocyte Count (06/18/2016 10:44 AM EST) Reticulocyte % 2.7(H) 0.7 - 2.6 % [facility] Retic Abs # 0.120 0.030 - 0.120 x10(6)/mcL [facility] Immature Retic% 9.5 0.0 - 15.6 % [facility] Reticulated Hgb 37.8 31.3 - 40.2 pg [facility] Blood specimen (specimen) 06/18/2016 10:44 AM EST 06/18/2016 10:51 AM EST Narrative Resulting Agency Comment Spec In Lab Que Amaro MD HEMATOLOGY ORD ERABLES Performing Organization Address [facility] Co de Phone Number [facility] [place] [address] * Phosphorus (06/18/2016 10:44 AM EST) Phosphorus 2.7 2.5 - 4.5 mg/dL [facility] Blood specimen (specimen) 06/18/2016 10:44 AM EST 06/18/2016 10:51 AM EST Narrative Resulting Agency Comment Spec In Lab Que Amaro MD CHEMISTRY ORDBhargav JENNINGS Performing Organization Address [facility] Phone Number [facility] [place] [address] * (ABNORMAL) Magnesium (06/18/2016 10:44 AM EST) Pathologist [facility] Magnesium 0.66(L) 0.69 - 1.07 mmol/L [facility] Blood specimen (specimen) 06/18/2016 10:44 AM EST 06/18/2016 10:51 AM EST Narrative Resulting Agency Comment Spec In Lab Que Amaro MD CHEMISTRY ORDBhargav JENNINGS Performing Organization Address [facility] Co de Phone Number [facility] [place] [address] * Cyclosporine level (06/18/2016 10:44 AM EST) Cyclosporine A Level <30 ng/mL [facility] Comment: Trough therapeutic: ??100-300 ng/mL ?Trough toxic: >400 ng/mL Therapeutic range applies to trough specimens drawn prior to am dose. Performed by ultra-performance liquid chromatography tandem mass spectrometry (UPLCMS/MS). This whole blood LCMSMS method measures only the parent drug, cyclosporine A. Blood specimen (specimen) 06/18/2016 10:44 AM EST 06/18/2016 1:23 PM EST Narrative Resulting Agency Comment Spec In Lab Que Amaro MD LAB SEND OUT O RDERABLES [facility] [place] [address] * (ABNORMAL) Comprehensive metabolic panel (non-fasting) (06/18/2016 10:44 AM EST) Glucose 153 65 - 199 mg/dL [facility] Comment:Diabetes: >=200 mg/d L plus symptoms Blood Urea Nitrogen 16 10 - 20 mg/dL [facility] Creatinine 1.34 0.80 - 1.50 mg/dL [facility] Comment: Please note that the pediatric reference intervals supplied above were not validated at [facility] [place] [place]. Results from pediatric patients should be interpreted in conjunction to the patient's age, height and muscle mass. Sodium 142 135 - 145 mmol/L [facility] Potassium 4.2 3.5 - 5.0 mmol/L [facility] Comment: Please note: ??Patients with WBC >100,000 may have falsely elevated Potassium levels. ??For accurate Potassium quantification in these patients send serum separator tube (gold top) for subsequent determinations. ??Contact the Clinical Chemistry Laboratory if there are any questions. Chloride 101 98 - 107 mmol/L [facility] Carbon Dioxide 25 22 - 31 mmol/L [facility] Anion Gap 16(H) 5 - 15 mmol/L [facility] Calcium 9.7 8.5 - 10.5 mg/dL [facility] Protein, Total 7.5 6.1 - 8.0 gm/dL [facility] Albumin 4.1 3.2 - 5.2 gm/dL [facility] Aspartate Aminotransferase 32 0 - 39 unit/L [facility] Alanine Aminotransferase 26 0 - 55 unit/L [facility] Alkaline Phosphatase 80 40 - 120 unit/L [facility] Bilirubin, Total 1.1 0.2 - 1.3 mg/dL [facility] Bilirubin, Direct 0.3 0.0 - 0.3 mg/dL [facility] Est Glomerular Filtration Rate 53(L) >=60 [facility] Comment: This estimated GFR (eGFR) [...] the following links into your internet browser. [email or web address] Blood specimen (specimen) 06/18/2016 10:44 AM EST 06/18/2016 10:51 AM EST Narrative Resulting Agency Comment Spec In Lab Que Amaro MD [facility] Organization Address City/State/ZIP Co de Phone Number [facility] [place] [address] * Cholesterol, total (06/18/2016 10:44 AM EST) Cholesterol, Total 160 <=239 mg/dL [facility] Lipid Interpretation See Note [facility] Comment: Lipid management should be guided by a patient? s ASCVD risk, goals and preferences. ACC/AHA Guidelines recommend high intensity statin if clinical ASCVD or LDL greater than or equal to 190 mg/dL. http://circ.ahajournals.org/content/early/.cir.3924377470.53092.7a Adults aged 40-75 with LDL 70-189 mg/dL should have their 10 year ASCVD risk estimated with the ACC/AHA ASCVD risk mechanical estimator http://tools.acc.org/ZIYIC-Klfb-Offelntia/ Statin should be discussed if risk greater [...] of ASCVD risk reduction. Blood specimen (specimen) 06/18/2016 10:44 AM EST 06/18/2016 10:51 AM EST Narrative Resulting Agency Comment Spec In Lab Que Amaro MD CHEMISTRY ROCHELLE JENNINGS [facility] [place] [address] documented in this encounter Visit Diagnoses Diagnosis Kidney replaced by transplant documented in this encounter Care Teams Fish Filleter Relationship Specialty Start Date End Date Urbano Denis DO [address] [place] [address] PCP - General 09/03/12 03/17/22 Ruchi Valles RN Nurse Clinic Transplant Surgery 07/30/15 documented as of this encounter
--- OUTSIDE RECORDS SUMMARY | 2024-02-14 11:27 | XMS_ITS | Encounter Summary ---
Author Organization [facility] [place] [address] Care Team Providers Care Keno Writer Name Role Phone Urbano Denis DO Primary Care Provider Encounter Details Date Type Department Care Team (Late st Contact Info) Description 08/06/2016 Orders Only [place] [phone] Dominique Jackson RN Kidney transplant recipient Social History Tobacco Use Types Packs/Day Years [...] AM EDT Hospital Encounter [place] [phone] Arrived documented as of this encounter Results * (ABNORMAL) Protein/Creatinine Ratio, urine (08/12/2016 9:50 AM EST) Creatinine, Urine 132 mg/dL [facility] Protein, Urine 29(H) 0 - 12 mg/dL [facility] Protein / Creatinine Ratio, Urine 0.2 ratio [facility] Urine specimen (specimen) 08/12/2016 9:50 AM EST 08/12/2016 9:57 AM EST Narrative Resulting Agency Comment Spec In Lab Tal Eagle MD URINE ORDERABLES [facility] [place] [address] * (ABNORMAL) Urinalysis with reflex Culture (08/12/2016 9:50 AM EST) Glucose, Urine Dipstick >=500(Critic al) Negative mg/dL [facility] Comment: Urinalysis result NOT critical without a combination of Glucose greater than or equal to 500mg/dl AND Ketones greater than or equal to 80mg/dl. Protein, Urine Dipstick 30(A) Negative mg/dL [facility] Ketone, Urine Dipstick 5(A) Negative mg/dL [facility] Nitrite, Urine Dipstick Negative Negative [facility] Leukocytes, Urine Dipstick Negative Negative [facility] Appearance, Urine Dipstick Clear Clear [facility] Specific [place] Urine Automated 1.023 1.002 - 1.030 [facility] Color, Urine Dipstick Yellow Yellow [facility] RBC, Urine 2 0 - 3 /HPF [facility] WBC, Urine 5(H) 0 - 3 /HPF [facility] Reflex to Culture No [facility] Urine specimen (specimen) 08/12/2016 9:50 AM EST 08/12/2016 9:57 AM EST Narrative Resulting Agency Comment Spec In Lab Tal Eagle MD URINE ORDERABLES [facility] [place] [address] * (ABNORMAL) Comprehensive metabolic panel (non-fasting) (08/12/2016 9:31 AM EST) Glucose 330(H) 65 - 199 mg/dL [facility] Comment:Diabetes: >=200 mg/d L plus symptoms Blood Urea Nitrogen 14 10 - 20 mg/dL [facility] Creatinine 1.29 0.80 - 1.50 mg/dL [facility] Comment: Please note that the pediatric reference intervals supplied above were not validated [place] [facility]. Results from pediatric patients should be interpreted in conjunction to the patient's age, height and muscle mass. Sodium 135 135 - 145 mmol/L [facility] Anion Gap 15 5 - 15 mmol/L [facility] Calcium 9.9 8.5 - 10.5 mg/dL [facility] Protein, Total 7.7 6.1 - 8.0 gm/dL [facility] Albumin 4.3 3.2 - 5.2 gm/dL [facility] Aspartate Aminotransferase 22 0 - 39 unit/L [facility] Alanine Aminotransferase 28 0 - 55 unit/L [facility] Alkaline Phosphatase 74 40 - 120 unit/L [facility] Bilirubin, Total 1.4(H) 0.2 - 1.3 mg/dL [facility] Bilirubin, Direct 0.3 0.0 - 0.3 mg/dL [facility] Est Glomerular Filtration Rate 56(L) >=60 [facility] Comment: This estimated GFR (eGFR) value [...] the following links into your internet browser. [email or web address] Blood specimen (specimen) 08/12/2016 9:31 AM EST 08/12/2016 9:38 AM EST Narrative Resulting Agency Comment Spec In Lab Tal Eagle MD CHEMISTRY ORDERAB LES Performing Organization Address City/[facility]/ZIP Co de Phone Number [facility] [place] [address] * Uric acid (08/12/2016 9:31 AM EST) Uric Acid 6.3 3.5 - 8.5 mg/dL [facility] Blood specimen (specimen) 08/12/2016 9:31 AM EST 08/12/2016 9:38 AM EST Narrative Resulting Agency Comment Spec In Lab Tal Eagle MD CHEMISTRY ORDERAB LES Performing Organization Address City/[facility]/ZIP Co de Phone Number [facility] [place] [address] * Cholesterol, total (08/12/2016 9:31 AM EST) Cholesterol, Total 126 <=239 mg/dL [facility] Lipid Interpretation See Note [facility] Comment: Lipid management should be guided by a patient? s ASCVD risk, goals and preferences. ACC/AHA Guidelines recommend high intensity statin if clinical ASCVD or LDL greater than or equal to 190 mg/dL. http://circ.ahajournals.org/content/early.cir.1226524100.78583.7a Adults aged 40-75 with LDL 70-189 mg/dL should have their 10 year ASCVD risk estimated with the ACC/AHA ASCVD risk insulation estimator http://tools.acc.org/AYIAT-Vaoe-Mubccimim/ Statin should be discussed if risk greater [...] of ASCVD risk reduction. Blood specimen (specimen) 08/12/2016 9:31 AM EST 08/12/2016 9:38 AM EST Narrative Resulting Agency Comment Spec In Lab Tal Eagle MD CHEMISTRY ORDERAB LES Performing Organization Address City/[facility]/ZIP Co de Phone Number [facility] [place] [address] * Tacrolimus level (08/12/2016 9:31 AM EST) Tacrolimus 4.9 ng/mL [facility] Comment: Trough therapeutic: ??5-15 ng/mL Performed by ultra-performance liquid chromatography tandem mass spectrometry (UPLCMS/MS). Blood specimen (specimen) 08/12/2016 9:31 AM EST 08/12/2016 10:15 AM EST Narrative Resulting Agency Comment Spec In Lab Tal Eagle MD CHEMISTRY ORDERAB LES Performing Organization Address City/[facility]/ZIP Co de Phone Number [facility] [place] [address] * Phosphorus (08/12/2016 9:31 AM EST) Phosphorus 2.6 2.5 - 4.5 mg/dL [facility] Blood specimen (specimen) 08/12/2016 9:31 AM EST 08/12/2016 9:38 AM EST Narrative Resulting Agency Comment Spec In Lab Tal Eagle MD CHEMISTRY ORDERAB LES Performing Organization Address City/[facility] Co de Phone Number [facility] [place] [address] * (ABNORMAL) Magnesium (08/12/2016 9:31 AM EST) Magnesium 0.68(L) 0.69 - 1.07 mmol/L [facility] Blood specimen (specimen) 08/12/2016 9:31 AM EST 08/12/2016 9:38 AM EST Narrative Resulting Agency Comment Spec In Lab Tal Eagle MD CHEMISTRY ORDERAB LES Performing Organization Address [facility] Co de Phone Number [facility] [place] [address] documented in this encounter Visit Diagnoses Diagnosis Kidney transplant recipient documented in this encounter Care Teams Keno Writer Relationship Specialty Start Date End Date Urbano Denis DO [address] [place] [address] PCP - General 09/03/12 03/17/22 Ruchi Valles RN Nurse Clinic Transplant Surgery 07/30/15 documented as of this encounter
--- OUTSIDE RECORDS SUMMARY | 2024-02-14 11:27 | XMS_ITS | Encounter Summary ---
[facility] [place] [address] Care Team Providers Care Refrigeration Manager Name Role Phone Urbano Denis DO Primary Care Provider Encounter Details Date Type Department Care Team (Latest Contact Info) Description 08/12/2016 9:00 AM EST Laboratory Appointment Lab [address] [place] [phone] Kidney transplant recipient; Kidney replaced by transplant Social History Tobacco [...] AM EDT Hospital Encounter Non-Invasive [place] [phone] Arrived documented as of this encounter Goals Goal Patient Goal Type Associated Problems Recent Progress Patient-Stated? Author [facility] Medication Compliance and Understanding Patient Facing Action Plan On track( 017 10:41 AM EDT) No Selena Cisneros [facility] Note: Patient Goal: Clear hepatitis C Timeframe to meet goal: within 12 weeks of therapy documented as of this encounter Procedures Procedure Name Priority Date/Time Associated Diagnosis Comments PROTEIN/CREATININE RATIO, URINE STAT 08/12/2016 9:50 AM EST Kidney transplant recipient URINALYSIS WITH REFLEX CULTURE STAT 08/12/2016 9:50 AM EST Kidney transplant recipient BK QUANT BLOOD RESULT STAT 08/12/2016 9:31 AM EST Kidney replaced by transplant BKV QUANT BLOOD STAT 08/12/2016 9:31 AM EST Kidney replaced by transplant HEMOGRAM STAT 08/12/2016 9:31 AM EST Kidney transplant recipient DIFFERENTIAL, AUTOMATED STAT 08/12/2016 9:31 AM EST Kidney transplant recipient TACROLIMUS LEVEL STAT 08/12/2016 9:31 AM EST Kidney transplant recipient RETICULOCYTE COUNT STAT 08/12/2016 9: 31 AM EST Kidney replaced by transplant CBC (WITH DIFF) STAT 08/12/2016 9:31 AM EST Kidney transplant recipient URIC ACID STAT 08/12/2016 9:31 AM EST Kidney transplant recipient PHOSPHORUS STAT 08/12/2016 9:31 AM EST Kidney transplant recipient MAGNESIUM STAT 08/12/2016 9:31 AM EST Kidney transplant recipient CHOLESTEROL, TOTAL STAT 08/12/2016 9: 31 AM EST Kidney transplant recipient COMPREHENSIVE METABOLIC PANEL STAT 08/12/2016 9:31 AM EST Kidney transplant recipient documented in this encounter Results * (ABNORMAL) Protein/Creatinine Ratio, urine (08/12/2016 9:50 AM EST) Creatinine, Urine 132 mg/dL [facility] Protein, Urine 29(H) 0 - 12 mg/dL [facility] Protein / Creatinine Ratio, Urine 0.2 ratio [facility] Urine specimen (specimen) 08/12/2016 9:50 AM EST 08/12/2016 9:57 AM EST Narrative Resulting Agency Comment Spec In Lab Tal Eagle MD URINE ORDERABLES [facility] [place] [address] * (ABNORMAL) Urinalysis with reflex Culture (08/12/2016 9:50 AM EST) Glucose, Urine Dipstick >=500(Critic al) Negative mg/dL [facility] Comment: Urinalysis result NOT critical without a combination of Glucose greater than or equal to 500mg/dl AND Ketones greater than or equal to 80mg/dl. Protein, Urine Dipstick 30(A) Negative mg/dL [facility] pH, Urn (dipstick) 6.0 5.0 - 8.0 [facility] Blood, Urine Dipstick Negative Negative mg/dL [facility] Ketone, Urine Dipstick 5(A) Negative mg/dL [facility] Nitrite, Urine Dipstick Negative Negative [facility] Leukocytes, Urine Dipstick Negative Negative [facility] Appearance, Urine Dipstick Clear Clear [facility] Specific [place] Urine Automated 1.023 1.002 - 1.030 [facility] Color, Urine Dipstick Yellow Yellow [facility] RBC, Urine 2 0 - 3 /HPF [facility] WBC, Urine 5(H) 0 - 3 /HPF [facility] Reflex to Culture No [facility] Urine specimen (specimen) 08/12/2016 9:50 AM EST 08/12/2016 9:57 AM EST Narrative Resulting Agency Comment Spec In Lab Tal Eagle MD URINE ORDERABLES Performing Organization Address City/[facility]/ZIP Co de Phone Number [facility] [place] [address] * BK Quant Blood Result (08/12/2016 9:31 AM EST) Pathologist [facility] BKV Blood Result Not Detected [facility] BKV Blood Interp BK Virus Plasma Result Interpretation Result: BK Virus not detected Specimen type: plasma Assay Range: 2.83-8.83 log copies/mL (6.8x10^2 - 6.8x10^8 copies/mL) Methods: Quantitative real-time polymerase chain reaction (PCR) of viral DNA isolated from plasma was performed using [employer] (formerly, [employer]) BKV analyte-specific reagents and the [employer] Fotofeedback 7500 FAST Real-Time PCR System. In addition, [...] Genomics and [employer] Technology (CGAT) Laboratory at [facility]. It has not been cleared or approved by the FDA. The laboratory is regulated under CLIA as qualified to perform high-complexity testing. This test is used for clinical purposes. It should not be regarded as investigational or for research. [facility] Comment: [VERIFIED DATE]08.19.16 Verified By:Nella Evans (Electronic Signature) Blood specimen (specimen) 08/12/2016 9:31 AM EST 08/12/2016 1:20 PM EST Narrative Resulting Agency Comment Spec In Lab Tal Eagle MD [place] [address] * Differential, Automated (08/12/2016 9:31 AM EST) Pathologist [facility] Neutrophil % 67.5 % [facility] Neutrophil Absolute 5.38 1.70 - 6.10 x10(3)/[facility] Lymph % 21.5 % [facility] Lymphocytes Abs 1.7 0.9 - 3.2 x10(3)/[facility] Monocyte % 7.0 % [facility] Monocyte Abs 0.6 0.3 - 0.9 x10(3)/[facility] Eos % 2.5 % [facility] Eosinophils Abs 0.2 0.0 - 0.4 x10(3)/[facility] Basophil % 1.0 % [facility] Baso Absolute 0.1 0.0 - 0.1 x10(3)/[facility] Immature Gran % 0.50 % [facility] Comment: Immature granulocytes(IG's)percentage and absolute count will include metamyelocytes, myelocytes, and promyelocytes. Blood smears from CBCs yielding IG's will be scanned manually for concordance. If this scan disagrees with the automated IG or if promyelocytes are noted, a manual differential will be performed. Immature Gran Absolute 0.04 0.00 - 0.04 x10(3)/[facility] Blood specimen (specimen) 08/12/2016 9:31 AM EST 08/12/2016 9:38 AM EST Narrative Resulting Agency Comment Spec In Lab aTl Eagle MD [place] [address] * Hemogram (08/12/2016 9:31 AM EST) Pathologist [facility] White Blood Cell 8.0 4.0 - 9.5 x10(3)/[facility] Red Blood Cell 4.96 4.58 - 5.54 x10(6)/[facility] Hemoglobin 15.8 13.7 - 16.5 gm/dL [facility] Hematocrit 44.9 40.5 - 48.5 % [facility] Mean Cell Volume 90.5 82.9 - 93.1 fL [facility] Mean Cell Hemoglobin 31.9 27.5 - 32.1 pg [facility] Mean Cell Hemoglobin Concentration 35.2 32.0 - 35.7 gm/dL [facility] Platelet 236 145 - 357 x10(3)/[facility] RDW Standard Deviation 41.4 36.0 - 45.0 [facility] RDW coefficient of variation 12.6 11.4 - 13.8 % [facility] Mean Platelet Volume 9.6 7.6 - 12.9 fL [facility] NRBC% auto 0.0 % [facility] NRBC Absolute 0.000 0.000 - 0.000 x10(3)/[facility] Blood specimen (specimen) 08/12/2016 9:31 AM EST 08/12/2016 9:38 AM EST Narrative Resulting Agency Comment Spec In Lab Tal Eagle MD HEMATOLOGY ORDERA BLES Performing Organization Address City/State/[facility] Co de Phone Number [facility] [place] [address] * (ABNORMAL) Reticulocyte Count (08/12/2016 9:31 AM EST) Reticulocyte % 2.5 0.7 - 2.6 % [facility] Retic Abs # 0.130(H) 0.030 - 0.120 x10(6)/ L [facility] Immature Retic% 9.1 0.0 - 15.6 % [facility] Reticulated Hgb 36.1 31.3 - 40.2 pg [facility] Blood specimen (specimen) 08/12/2016 9:31 AM EST 08/12/2016 9:38 AM EST Narrative Resulting Agency Comment Spec In Lab Tal Eagle MD HEMATOLOGY ORDERA BLES [facility] [place] [address] * (ABNORMAL) Comprehensive metabolic panel (non-fasting) (08/12/2016 9:31 AM EST) Glucose 330(H) 65 - 199 mg/dL [facility] Comment:Diabetes: >=200 mg/d L plus symptoms Blood Urea Nitrogen 14 10 - 20 mg/dL [facility] Creatinine 1.29 0.80 - 1.50 mg/dL [facility] Comment: Please note that the pediatric reference intervals supplied above were not validated at [facility]. Results from pediatric patients should be interpreted in conjunction to the patient's age, height and muscle mass. Sodium 135 135 - 145 mmol/L [facility] Potassium 4.2 3.5 - 5.0 mmol/L [facility] Comment: Please note: ??Patients with WBC >100,000 may have falsely elevated Potassium levels. ??For accurate Potassium quantification in these patients send serum separator tube (gold top) for subsequent determinations. ??Contact the Clinical Chemistry Laboratory if there are any questions. Chloride 96(L) 98 - 107 mmol/L [facility] Carbon Dioxide 24 22 - 31 mmol/L [facility] Anion Gap 15 5 - 15 mmol/L [facility] Calcium 9.9 8.5 - 10.5 mg/dL [facility] Protein, Total 7.7 6.1 - 8.0 gm/dL [facility] Albumin 4.3 3.2 - 5.2 gm/dL [facility] Aspartate Aminotransferase 22 0 - 39 unit/L [facility] Alanine Aminotransferase 28 0 - 55 unit/L [facility] Alkaline Phosphatase 74 40 - 120 unit/L [facility] Bilirubin, Total 1.4(H) 0.2 - 1.3 mg/dL [facility] Bilirubin, Direct 0.3 0.0 - 0.3 mg/dL [facility] Est Glomerular Filtration Rate 56(L) >=60 [facility] Comment: This estimated GFR [...] the following links into your internet browser. [email or web address] Blood specimen (specimen) 08/12/2016 9:31 AM EST 08/12/2016 9:38 AM EST Narrative Resulting Agency Comment Spec In Lab Tal Eagle MD CHEMISTRY ORDERAB LES Performing Organization Address City/[facility]/ZIP Co de Phone Number [facility] [place] [address] * Uric acid (08/12/2016 9:31 AM EST) Uric Acid 6.3 3.5 - 8.5 mg/dL [facility] Blood specimen (specimen) 08/12/2016 9:31 AM EST 08/12/2016 9:38 AM EST Narrative Resulting Agency Comment Spec In Lab Tal Eagle MD CHEMISTRY ORDERAB LES Performing Organization Address City/[facility]/ZIP Co de Phone Number [facility] [place] [address] * Cholesterol, total (08/12/2016 9:31 AM EST) Cholesterol, Total 126 <=239 mg/dL [facility] Lipid Interpretation See Note [facility] Comment: Lipid management should be guided by a patient? s ASCVD risk, goals and preferences. ACC/AHA Guidelines recommend high intensity statin if clinical ASCVD or LDL greater than or equal to 190 mg/dL. http://circ.ahajournals.org/content/early/.cir.0533505430.78956.7a Adults aged 40-75 with LDL 70-189 mg/dL should have their 10 year ASCVD risk estimated with the ACC/AHA ASCVD risk box estimator http://tools.acc.org/IFANV-Ijsl-Kylceqxpo/ Statin should be discussed if risk greater [...] Organization Address City/[facility]/ZIP Co de Phone Number [facility] [place] [address] * Tacrolimus level (08/12/2016 9:31 AM EST) Tacrolimus 4.9 ng/mL [facility] Comment: Trough therapeutic: ??5-15 ng/mL Performed by ultra-performance liquid chromatography tandem mass spectrometry (UPLCMS/MS). Blood specimen (specimen) 08/12/2016 9:31 AM EST 08/12/2016 10:15 AM EST Narrative Resulting Agency Comment Spec In Lab Tal Eagle MD CHEMISTRY ORDERAB LES Performing Organization Address City/[facility]/ZIP Co de Phone Number [facility] [place] [address] * Phosphorus (08/12/2016 9:31 AM EST) Phosphorus 2.6 2.5 - 4.5 mg/dL [facility] Blood specimen (specimen) 08/12/2016 9:31 AM EST 08/12/2016 9:38 AM EST Narrative Resulting Agency Comment Spec In Lab Tal Eagle MD CHEMISTRY ORDERAB LES Performing Organization Address City/[facility] Co de Phone Number [facility] [place] [address] * (ABNORMAL) Magnesium (08/12/2016 9:31 AM EST) Magnesium 0.68(L) 0.69 - 1.07 mmol/L [facility] Blood specimen (specimen) 08/12/2016 9:31 AM EST 08/12/2016 9:38 AM EST Narrative Resulting Agency Comment Spec In Lab Tal Eagle MD CHEMISTRY ORDERAB LES Performing Organization Address [facility] Co de Phone Number [facility] [place] [address] documented in this encounter Visit Diagnoses Diagnosis Kidney transplant recipient Kidney replaced by transplant documented in this encounter Care Teams Refrigeration Manager Relationship Specialty Start Date End Date Urbano Denis DO [address] [place] [address] PCP - General 09/03/12 03/17/22 Ruchi Valles RN Nurse Clinic Transplant Surgery 07/30/15 documented as of this encounter
--- OUTSIDE RECORDS SUMMARY | 2024-02-14 11:27 | XMS_ITS | Encounter Summary ---
[facility] [address] Care Team Providers Care Locomotive Pipe Fitter Name Role Phone Urbano Denis DO Primary Care Provider Encounter Details Date Type Department Care Team (Latest Contact Info) Description 07/08/2016 9:30 AM EST Laboratory Appointment Lab [address] [place] [phone] Kidney replaced by transplant Social History Tobacco [...] AM EDT Hospital Encounter Non-Invasive [place] [phone] Arrived documented as of this encounter Procedures Procedure Name Priority Date/Time Associated Diagnosis Comments PROTEIN/CREATININE RATIO, URINE STAT 07/08/2016 8:57 AM EST Kidney replaced by transplant URINALYSIS WITH REFLEX CULTURE STAT 07/08/2016 8:57 AM EST Kidney replaced by transplant BK QUANT BLOOD RESULT STAT 07/08/2016 8:56 AM EST Kidney replaced by transplant BKV QUANT BLOOD STAT 07/08/2016 8:56 AM EST Kidney replaced by transplant HEMOGRAM STAT 07/08/2016 8:56 AM EST Kidney replaced by transplant DIFFERENTIAL, AUTOMATED STAT 07/08/2016 8:56 AM EST Kidney replaced by transplant TACROLIMUS LEVEL STAT 07/08/2016 8:56 AM EST Kidney replaced by transplant RETICULOCYTE COUNT STAT 07/08/2016 8: 56 AM EST Kidney replaced by transplant CBC (WITH DIFF) STAT 07/08/2016 8:56 AM EST Kidney replaced by transplant URIC ACID STAT 07/08/2016 8:56 AM EST Kidney replaced by transplant PHOSPHORUS STAT 07/08/2016 8:56 AM EST Kidney replaced by transplant MAGNESIUM STAT 07/08/2016 8:56 AM EST Kidney replaced by transplant CHOLESTEROL, TOTAL STAT 07/08/2016 8: 56 AM EST Kidney replaced by transplant COMPREHENSIVE METABOLIC PANEL STAT 07/08/2016 8:56 AM EST Kidney replaced by transplant documented in this encounter Results * Urinalysis with reflex Culture (07/08/2016 8:57 AM EST) Glucose, Urine Dipstick Negative Negative mg/dL [facility] Protein, Urine Dipstick Negative Negative mg/dL [facility] Bilirubin, [...] [facility] pH, Urn (dipstick) 6.0 5.0 - 8.0 [facility] Blood, Urine Dipstick Negative Negative mg/dL [facility] Ketone, Urine Dipstick Negative Negative mg/dL [facility] Nitrite, Urine Dipstick Negative Negative [facility] Leukocytes, Urine Dipstick Negative Negative [facility] Appearance, Urine Dipstick Clear Clear [facility] Specific Clover Urine Automated 1.020 1.002 - 1.030 [facility] Color, Urine Dipstick Yellow Yellow [facility] RBC, Urine 2 0 - 3 /HPF [facility] WBC, Urine 3 0 - 3 /HPF [facility] Reflex to Culture No [facility] Urine specimen obtained by clean catch procedure (specimen) 07/08/2016 8:57 AM EST 07/08/2016 9:02 AM EST Narrative Resulting Agency Comment Spec In Lab Que Amaro MD URINE ORDERABL ES Performing Organization Address [facility] Co de Phone Number [facility] [place] [address] * (ABNORMAL) Protein/Creatinine Ratio, urine (07/08/2016 8:57 AM EST) Creatinine, Urine 124 mg/dL [facility] Protein, Urine 15(H) 0 - 12 mg/dL [facility] Protein / Creatinine Ratio, Urine 0.1 ratio [facility] Urine specimen (specimen) 07/08/2016 8:57 AM EST 07/08/2016 9:03 AM EST Narrative Resulting Agency Comment Spec In Lab Que Amaro MD URINE ORDERABL ES Performing Organization Address City/[facility]/ZIP Co de Phone Number [facility] [place] [address] * BK Quant Blood Result (07/08/2016 8:56 AM EST) BKV Blood Result Not Detected [facility] BKV Blood Interp BK Virus Plasma Result Interpretation Result: BK Virus not detected Specimen type: plasma Assay Range: 2.83-8.83 log copies/mL (6.8x10^2 - 6.8x10^8 copies/mL) Methods: Quantitative real-time polymerase chain reaction (PCR) of viral DNA isolated from plasma was performed using [employer] (formerly, [employer]) BKV analyte-specific reagents and the [employer] 7500 FAST Real-Time PCR System. In addition, [...] [facility] [employer] [facility] at [facility] It has not been cleared or approved by the FDA. The laboratory is regulated under CLIA as qualified to perform high-complexity testing. This test is used for clinical purposes. It should not be regarded as investigational or for research. [facility] Comment: [VERIFIED DATE]07.16.16 Verified By:Fatemeh Garcia (Electronic Signature) Blood specimen (specimen) 07/08/2016 8:56 AM EST 07/08/2016 10:38 AM EST Narrative Resulting Agency Comment Spec In Lab Que Amaro MD HEMATOLOGY ORD ERABLES [facility] [place] [address] * Differential, Automated (07/08/2016 8:56 AM EST) [facility] Neutrophil % 68.4 % [facility] Neutrophil Absolute 5.86 1.70 - 6.10 x10(3)/[facility] Lymph % 21.5 % [facility] Lymphocytes Abs 1.8 0.9 - 3.2 x10(3)/[facility] Monocyte % 6.9 % [facility] Monocyte Abs 0.6 0.3 - 0.9 x10(3)/[facility] Eos % 2.1 % [facility] Eosinophils Abs 0.2 0.0 - 0.4 x10(3)/[facility] Basophil % 0.6 % [facility] Baso Absolute 0.0 0.0 - 0.1 x10(3)/[facility] Immature Gran % 0.50 % [facility] Comment: Immature granulocytes(IG's)percentage and absolute count will include metamyelocytes, myelocytes, and promyelocytes. Blood smears from CBCs yielding IG's will be scanned manually for concordance. If this scan disagrees with the automated IG or if promyelocytes are noted, a manual differential will be performed. Immature Gran Absolute 0.04 0.00 - 0.04 x10(3)/[facility] Blood specimen (specimen) 07/08/2016 8:56 AM EST 07/08/2016 9:03 AM EST Narrative Resulting Agency Comment Spec In Lab Que Amaro MD HEMATOLOGY ORD ERABLES [facility] [place] [address] * Hemogram (07/08/2016 8:56 AM EST) White Blood Cell 8.6 4.0 - 9.5 x10(3)/[facility] Red Blood Cell 4.61 4.58 - 5.54 x10(6)/[facility] Hemoglobin 14.7 13.7 - 16.5 gm/dL [facility] Hematocrit 41.5 40.5 - 48.5 % [facility] Mean Cell Volume 90.0 82.9 - 93.1 fL [facility] Mean Cell Hemoglobin 31.9 27.5 - 32.1 pg [facility] Mean Cell Hemoglobin Concentration 35.4 32.0 - 35.7 gm/dL [facility] Platelet 252 145 - 357 x10(3)/[facility] RDW Standard Deviation 40.8 36.0 - 45.0 [facility] RDW coefficient of variation 12.5 11.4 - 13.8 % [facility] Mean Platelet Volume 9.0 7.6 - 12.9 [facility] NRBC% auto 0.0 % [facility] NRBC Absolute 0.000 0.000 - 0.000 x10(3)/[facility] Blood specimen (specimen) 07/08/2016 8:56 AM EST 07/08/2016 9:03 AM EST Narrative Resulting Agency Comment Spec In Lab Que Amaro MD HEMATOLOGY ORD ERABLES Performing Organization Address City/[facility]/ZIP Co de Phone Number [facility] [place] [address] * Uric acid (07/08/2016 8:56 AM EST) Uric Acid 7.1 3.5 - 8.5 mg/dL [facility] Blood specimen (specimen) 07/08/2016 8:56 AM EST 07/08/2016 9:03 AM EST Narrative Resulting Agency Comment Spec In Lab Que Amaro MD CHEMISTRY ORDE DICK Performing Organization Address City/[facility]/ZIP Co de Phone Number [facility] [place] [address] * Tacrolimus level (07/08/2016 8:56 AM EST) Tacrolimus 5.5 ng/mL [facility] Comment: Trough therapeutic: ??5-15 ng/mL Performed by ultra-performance liquid chromatography tandem mass spectrometry (UPLCMS/MS). Blood specimen (specimen) 07/08/2016 8:56 AM EST 07/08/2016 10:54 AM EST Narrative Resulting Agency Comment Spec In Lab Que Amaro MD CHEMISTRY ROCHELLE JENNINGS Performing Organization Address [facility] Co de Phone Number [facility] [place] [address] * Reticulocyte Count (07/08/2016 8:56 AM EST) Reticulocyte % 2.3 0.7 - 2.6 % [facility] Retic Abs # 0.110 0.030 - 0.120 x10(6)/mcL [facility] Immature Retic% 4.9 0.0 - 15.6 % [facility] Reticulated Hgb 37.2 31.3 - 40.2 pg [facility] Blood specimen (specimen) 07/08/2016 8:56 AM EST 07/08/2016 9:03 AM EST Narrative Resulting Agency Comment Spec In Lab Que Amaro MD HEMATOLOGY ORD ERABLES Performing Organization Address [facility] Co de Phone Number [facility] [place] [address] * Phosphorus (07/08/2016 8:56 AM EST) Phosphorus 2.8 2.5 - 4.5 mg/dL [facility] Blood specimen (specimen) 07/08/2016 8:56 AM EST 07/08/2016 9:03 AM EST Narrative Resulting Agency Comment Spec In Lab Que Amaro MD CHEMISTRY ROCHELLE JENNINGS Performing Organization Address [facility] Co de Phone Number [facility] [place] [address] * (ABNORMAL) Magnesium (07/08/2016 8:56 AM EST) Magnesium 0.62(L) 0.69 - 1.07 mmol/L [facility] Blood specimen (specimen) 07/08/2016 8:56 AM EST 07/08/2016 9:03 AM EST Narrative Resulting Agency Comment Spec In Lab Que Amaro MD CHEMISTRY ROCHELLE JENNINGS [facility] [place] [address] * (ABNORMAL) Comprehensive metabolic panel (non-fasting) (07/08/2016 8:56 AM EST) Glucose 258(H) 65 - 199 mg/dL [facility] Comment:Diabetes: >=200 mg/d L plus symptoms Blood Urea Nitrogen 14 10 - 20 mg/dL [facility] Creatinine 1.28 0.80 - 1.50 mg/dL [facility] Comment: Please note that the pediatric reference intervals supplied above were not validated at [facility]. Results from pediatric patients should be interpreted in conjunction to the patient's age, height and muscle mass. Sodium 136 135 - 145 mmol/L [facility] Potassium 3.9 3.5 - 5.0 mmol/L [facility] Comment: Please note: ??Patients with WBC >100,000 may have falsely elevated Potassium levels. ??For accurate Potassium quantification in these patients send serum separator tube (gold top) for subsequent determinations. ??Contact the Clinical Chemistry Laboratory if there are any questions. Chloride 97(L) 98 - 107 mmol/L [facility] Carbon Dioxide 23 22 - 31 mmol/L [facility] Anion Gap 16(H) 5 - 15 mmol/L [facility] Calcium 9.7 8.5 - 10.5 mg/dL [facility] Protein, Total 7.7 6.1 - 8.0 gm/dL [facility] Albumin 4.0 3.2 - 5.2 gm/dL [facility] Aspartate Aminotransferase 23 0 - 39 unit/L [facility] Alanine Aminotransferase 24 0 - 55 unit/L [facility] Alkaline Phosphatase 82 40 - 120 unit/L [facility] Bilirubin, Total 1.6(H) 0.2 - 1.3 mg/dL [facility] Bilirubin, Direct 0.3 0.0 - 0.3 mg/dL [facility] Est Glomerular Filtration Rate 56(L) >=60 [facility] Comment: This estimated GFR [...] the following links into your internet browser. [email or web address] Blood specimen (specimen) 07/08/2016 8:56 AM EST 07/08/2016 9:03 AM EST Narrative Resulting Agency Comment Spec In Lab Que Amaro MD CHEMISTRY ROCHELLE JENNINGS [facility] [place] [address] * Cholesterol, total (07/08/2016 8:56 AM EST) Cholesterol, Total 151 <=239 mg/dL [facility] Lipid Interpretation See Note [facility] Comment: Lipid management should be guided by a patient? s ASCVD risk, goals and preferences. ACC/AHA Guidelines recommend high intensity statin if clinical ASCVD or LDL greater than or equal to 190 mg/dL. http://circ.ahajournals.org/content/early/.cir.1194177874.89090.7a Adults aged 40-75 with LDL 70-189 mg/dL should have their 10 year ASCVD risk estimated with the ACC/AHA ASCVD risk estimator jewelry http://tools.acc.org/WMOJT-Vlln-Ppwaybdsb/ Statin should be discussed if risk greater [...] of ASCVD risk reduction. Blood specimen (specimen) 07/08/2016 8:56 AM EST 07/08/2016 9:03 AM EST Narrative Resulting Agency Comment Spec In Lab Que Amaro MD [place]MI[place] [address] documented in this encounter Visit Diagnoses Diagnosis Kidney replaced by transplant documented in this encounter Care Teams Locomotive Pipe Fitter Relationship Specialty Start Date End Date Urbano Denis DO [address] [place] [address] PCP - General 09/03/12 03/17/22 Ruchi Valles RN Nurse Clinic Transplant Surgery 07/30/15 documented as of this encounter
--- OUTSIDE RECORDS SUMMARY | 2024-02-14 11:27 | XMS_ITS | Encounter Summary ---
Author Organization [facility] Address [facility] [place] [address] Care Team Providers Care Travel Cota Name Role Phone Urbano Denis DO Primary Care Provider [phone] Reason for Visit * Reason Comments Follow-up Encounter Details Date Type Department Care Team (Late st Contact Info) Description 09/10/2016 9:30 AM EST Office Visit [place] [address] Franko Kim MD [facility] [place] [address] Chronic hepatitis C without hepatic coma; Encounter for medication monitoring; USP current use of antibiotics Social History Tobacco Use Types Packs/Day Years [...] Sign Reading Time Taken Comments Blood Pressure 149/76 09/10/2016 9:41 AM EST Pulse 94 09/10/2016 9:41 AM EST Temperature 36.5 ??C (97.7 ??F) 09/10/2016 9:41 AM ES T Respiratory Rate 20 09/10/2016 9:41 AM EST Oxygen Saturation - - Inhaled Oxygen Concentration - - Weight 95.3 kg (210 lb) 09/10/2016 9:41 AM EST Height - - Body Mass Index 29.29 08/12/2016 9:56 AM EST documented in this encounter Progress Notes * Franko Kim - 09/10/2016 9:30 AM EST INFECTIOUS DISEASE OUTPATIENT FOLLOW-UP NOTE Background: Cody Bolden is a 65 y.o. male with a history of HCV, DM, HTN and renal failure due to hypertensive nephropathy, who received a donor kidney transplantation in 09/17/2015, which has beencomplicated by a ureteral stricture that required a percutaneous nephrostomy and an internal stent and lead to multiple bouts of UTI with our without bacteremia. On 05/20/16, he underwent ureteral reconstructive surgery and has no hardware in place anymore. He is seen in ID clinic for the treatmentof chronic HCV. Subjective: Feeling well, stronger and stronger. No complaints. He started Harvoni on 08/12. No side effects. No RUQ pain, no jaundice. Has received second month's supply. Has not had any urinary troubles. No dysuria. Pertinent Medications: Prograf 1mg AM and 1mg PM Cellcept 250 mg daily Harvoni Physical Exam: Vitals: 09/10/16 0941 BP: 149/76 Pulse: 94 Resp: 20 Temp: 36.5 ??C (97.7 ??F) General Looks well HEENT No jaundice Heart Regular Lungs Clear Abdomen Obese, not tender Extremities No edema, no stigmata of liver disease Neuro Grossly intact Laboratory Data: Lab Results Component Value Date WBC 8.0 08/12/2016 HGB 15.8 08/12/2016 HCT 44.9 08/12/2016 MCV 90.5 08/12/2016 PLATELET 236 08/12/2016 Lab Results Component Value Date CREATININE 1.29 08/12/2016 Microbiology: 01/04/16 HCV RNA Genotype 1 NS5a Drug Resistance ?? HCV NS5a Subtype ? 1a ?? Daclatasvir Resistance ? NOT PREDICTED ?? Ledipasvir Resistance ? NOT PREDICTED ?? Ombitasvir Resistance ? NOT PREDICTED ?? Elbasvir Resistance ? NOT PREDICTED Mutations Detected NONE Imaging/Studies/Procedures: 05/16/15 Fibroscan stage 1-2 Impression/Plan: Cody Bolden presents today for 1 month follow up after starting Harvoni on 08/12/16 for chronicHCV. He is doing well, and tolerating He was diagnosed with HCV in 2014 without apparent liver disease and received a kidney transplant from a HCV positive donor. His virus was found to be genotype 1a on 05/25/15 and again on 01/04/16, both times without resistance mutations. In 2014, a fibroscan showed stage 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 On 01/04/16, hisviral load was [id number], on 07/30/16 [id number]. I will order a viral load today, as well as safety labs. If the VL is undetectable, I will check VLagain 12 weeks after completion of therapy. If the VL is still detectable, I will recheck VL in 2 weeks. For now, continue Harvoni for 12 weeks total, as planned. Follow up likely in 5 months, at the 6 months viral load check. Seen and discussed with Infectious Disease attending Dr. Yuliet Kim MD Infectious Disease Fellow Pager [phone] * Aubrey Horvath MD - 09/10/2016 9:30 AM EST Attending Addendum: I have seen and examined the patient, reviewed the data and agree with the note by Dr. Tipton. documented in this encounter Plan of Treatment Upcoming Encounters Date Type Department Care Team (Late st Contact Info) Description 04/15/2024 10:00 AM EDT Hospital Encounter Non-[place]vasive [place] [address] Arrived documented as of this [...] Priority Date/Time Associated Diagnosis Comments HEMOGRAM Routine 09/10/2016 10:44 AM EST Chronic hepatitis C without hepatic coma DIFFERENTIAL, AUTOMATED Routine 09/10/2016 10:44 AM EST Chronic hepatitis C without hepatic coma HEPATITIS C RNA, QUANTITATIVE, PCR Routine 09/10/2016 10:44 AM EST Chronic hepatitis C without hepatic coma CBC (WITH DIFF) Routine 09/10/2016 10:44 AM EST Chronic hepatitis C without hepatic coma COMPREHENSIVE METABOLIC PANEL Routine 09/10/2016 10:44 AM EST Chronic hepatitis C without hepatic coma documented in this encounter Results * Differential, Automated (09/10/2016 10:44 AM EST) Neutrophil % 57.7 % [facility] Neutrophil Absolute 3.80 1.70 - 6.10 x10(3)/[facility] Lymph % 29.5 % [facility] Lymphocytes Abs 1.9 0.9 - 3.2 x10(3)/[facility] Monocyte % 8.1 % [facility] Monocyte Abs 0.5 0.3 - 0.9 x10(3)/[facility] Eos % 3.3 % [facility] Eosinophils Abs 0.2 0.0 - 0.4 x10(3)/[facility] Basophil % 1.1 % [facility] Baso Absolute 0.1 0.0 - 0.1 x10(3)/[facility] Immature Gran % 0.30 % [facility] Comment: Immature granulocytes(IG's)percentage and absolute count will include metamyelocytes, myelocytes, and promyelocytes. Blood smears from CBCs yielding IG's will be scanned manually for concordance. If this scan disagrees with the automated IG or if promyelocytes are noted, a manual differential will be performed. Immature Gran Absolute 0.02 0.00 - 0.04 x10(3)/mcL [facility] Blood specimen (specimen) 09/10/2016 10:44 AM EST 09/10/2016 10:49 AM EST Narrative Resulting Agency Comment Spec In Lab Aubrey Horvath MD HEMATOLOGY ORDERA BLES [facility] [place] [address] * (ABNORMAL) Hemogram (09/10/2016 10:44 AM EST) White Blood Cell 6.6 4.0 - 9.5 x10(3)/mc L [facility] Red Blood Cell 4.95 4.58 - 5.54 x10(6)/mc L [facility] Hemoglobin 15.7 13.7 - 16.5 gm/dL [facility] Hematocrit 43.7 40.5 - 48.5 % [facility] Mean Cell Volume 88.3 82.9 - 93.1 fL [facility] Mean Cell Hemoglobin 31.7 27.5 - 32.1 pg [facility] Mean Cell Hemoglobin Concentration 35.9(H) 32.0 - 35.7 gm/dL [facility] Platelet 251 145 - 357 x10(3)/mc L [facility] RDW Standard Deviation 40.6 36.0 - 45.0 fL [facility] RDW coefficient of variation 12.5 11.4 - 13.8 % [facility] Mean Platelet Volume 9.3 7.6 - 12.9 fL [facility] NRBC% auto 0.0 % [facility] NRBC Absolute 0.000 0.000 - 0.000 x10(3)/mc L [facility] Blood specimen (specimen) 09/10/2016 10:44 AM EST 09/10/2016 10:49 AM EST Narrative Resulting Agency Comment Spec In Lab Aubrey Horvath MD HEMATOLOGY ORDERA BLES Performing Organization Address [facility] Co de Phone Number [facility] [place] [address] * Hepatitis C RNA, quantitative, PCR (09/10/2016 10:44 AM EST) Pathologist [facility] HCV Viral Load <15 IU/mL [facility] HCV Viral Load Result: <15 IU/mL (Target Not Detected) Indication for Study: Hepatitis C Infection Analysis: A quantitiative real time reverse transcriptase PCR assay was performed on extracted viral RNA for the purpose of quantification. Sample: plasma (1 mL minimum volume) Method: Kirsten June TaqMAN 48 HCV Linear Range: 15 IU/mL - 100,000,000IU/mL (95% CI) Note: This assay is being performed in the [facility]. Gibson Good, Ph.D. Director, Molecular Pathology [facility] Comment: [VERIFIED DATE]09.12.16 Verified By:Tal Cleaning (Electronic Signature) Blood specimen (specimen) 09/10/2016 10:44 AM EST 09/12/2016 10:39 AM EST Narrative Resulting Agency Comment Spec In Lab Aubrey Horvath MD MOLECULAR ORDERAB LES Performing Organization Address [facility]/ZIP Co de Phone Number [facility] [place] [address] * (ABNORMAL) Comprehensive metabolic panel (non-fasting) (09/10/2016 10:44 AM EST) Pathologist [facility] Glucose 106 65 - 199 mg/dL [facility] Comment:Diabetes: >=200 mg/d L plus symptoms Blood Urea Nitrogen 19 10 - 20 mg/dL [facility] Creatinine 1.44 0.80 - 1.50 mg/dL [facility] Comment: Please note that the pediatric reference intervals supplied above were not validated at [facility]. Results from pediatric patients should be interpreted in conjunction to the patient's age, height and muscle mass. Sodium 141 135 - 145 mmol/L [facility] Potassium 4.0 3.5 - 5.0 mmol/L [facility] Comment: Please note: ??Patients with WBC >100,000 may have falsely elevated Potassium levels. ??For accurate Potassium quantification in these patients send serum separator tube (gold top) for subsequent determinations. ??Contact the Clinical Chemistry Laboratory if there are any questions. Chloride 103 98 - 107 mmol/L [facility] Carbon Dioxide 24 22 - 31 mmol/L [facility] Anion Gap 14 5 - 15 mmol/L [facility] Calcium 9.7 8.5 - 10.5 mg/dL [facility] Protein, Total 7.4 6.1 - 8.0 gm/dL [facility] Albumin 4.1 3.2 - 5.2 gm/dL [facility] Aspartate Aminotransferase 16 0 - 39 unit/L [facility] Alanine Aminotransferase 16 0 - 55 unit/L [facility] Alkaline Phosphatase 60 40 - 120 unit/L [facility] Bilirubin, Total 1.8(H) 0.2 - 1.3 mg/dL [facility] Bilirubin, Direct 0.4(H) 0.0 - 0.3 mg/dL [facility] Est Glomerular Filtration Rate 49(L) >=60 [facility] Comment: This [...] the following links into your internet browser. [email or web address] Blood specimen (specimen) 09/10/2016 10:44 AM EST 09/10/2016 10:49 AM EST Narrative Resulting Agency Comment Spec In Lab Aubrey Horvath MD CHEMISTRY ORDERAB LES [facility] [place] [address] documented in this encounter Visit Diagnoses Diagnosis Chronic hepatitis C without hepatic coma Encounter for medication monitoring Encounter for therapeutic drug monitoring picc nurse current use of antibiotics Encounter for long-term (current) use of antibiotics documented in this encounter Care Teams Travel Cota Relationship Specialty Start Date End Date Urbano Denis DO [address] [place] [address] PCP - General 09/03/12 03/17/22 Ruchi Valles RN Nurse Clinic Transplant Surgery 07/30/15 documented as of this encounter
--- OUTSIDE RECORDS SUMMARY | 2024-02-14 11:27 | XMS_ITS | Encounter Summary ---
Author Organization [facility] Address [facility] [place] [address] Care Team Providers Care Sketch Maker Name Role Phone Urbano Denis DO Primary Care Provider [phone] Encounter Details Date Type Department Care Team (Late st Contact Info) Description 08/12/2016 Telephone [place] [address] Joanne Fernandes, RN [facility] [address] [place] [address] Social History Tobacco Use Types Packs/Day Years [...] Telephone Encounter - Joanne Fernandes, RN - 08/12/2016 4:22 PM EST Phone call to Mr. And Mes. Bolden .. He has asked that I talk to her about details HE was approved [facility] and picked up med today. [facility]ay by the [facility] Mrs Bolden had read package insert in prep for our call. He reports excellent adherence with complex medication regimen and does not anticipate any difficulty adhering to daily schedule Reviewed time of admin based on potential drug drug interactions Takes omeprazole about every three days. Only can be combined with harvoni if taken at the same time, fasting. Also harvoni needs to be from the magnesium that he takes twice daily. Also on kphos that needs to be from magnesium So he will take mag in am when he first gets up. 4 hours later, pre-lunch on empty stomach will take harvoni, omeprazole (as needed) and kphos., Then wait again till eating (about 1 hour) Also reviewed potential side effects (she had read all) including fatigue, headache, insomnia, irritabilty, n/v/d, rash Reviewed how to call in during regular of off- hours. Scheduled for Dr. Guerin on 09/10; labs including 1 month vl at that time. He will start meds tomorrow 08/13 documented in this encounter Plan of Treatment Upcoming Encounters Date Type Department Care Team (Late st Contact Info) Description 04/15/2024 10:00 AM EDT Hospital Encounter [place] [address] Arrived documented as of this encounter Visit Diagnoses Not on filedocumented in this encounter Care Teams Sketch Maker Relationship Specialty Start Date End Date Urbano Denis DO [address] [place] [address] PCP - General 09/03/12 03/17/22 Ruchi Valles RN Nurse Clinic Transplant Surgery 07/30/15 documented as of this encounter
--- OUTSIDE RECORDS SUMMARY | 2024-02-14 11:27 | XMS_ITS | Encounter Summary ---
Author Organization [facility] [place] [address] Care Team Providers Care Cad Administrator Name Role Phone Urbano Denis DO Primary Care Provider [phone] Reason for Visit * Reason Comments Kidney Transplant Follow-up s/p primary repair of distal transplant ureteral strenosis Immunotherapy Encounter Details Date Type Department Care Team (Late st Contact Info) Description 08/12/2016 10:00 AM EST Office Visit [place] [address] Tal Eagle MD [facility] [place] [address] Kidney replaced by transplant; Type 2 diabetes mellitus with complication, without long-term current use of insulin; Immunosuppression; Essential hypertension; Weight increase; CAH (chronic active hepatitis) Social History Tobacco Use Types Packs/Day Years [...] Sign Reading Time Taken Comments Blood Pressure 136/77 08/12/2016 9:56 AM EST Pulse 67 08/12/2016 9:56 AM EST Temperature - - Respiratory Rate - - Oxygen Saturation - - Inhaled Oxygen Concentration - - Weight 99.3 kg (219 lb) 08/12/2016 9:56 AM EST Height 180.3 cm (5' 11) 08/12/2016 9:56 AM EST Body Mass Index 30.54 08/12/2016 9:56 AM EST documented in this encounter Progress Notes * Tanmay Camara, DO - 08/12/2016 10:00 AM EST [facility] Transplant Nephrology Follow Up ?? Cody Bolden [id number] ?? Transplant ID: ?? Date:? 08/12/2016 Patient:? Cody Bolden? Transplant Date:? 09/16/2015? HPI: 65 y.o. male w/ hx of HCV, DM, HTN who is s/p donor kidney transplant 09/16/15. Patient presents to transplant clinic for follow-up after recurrent UTIs and patient is now s/p ureteral reconstructive surgery. Previous Tx Hx: 0% PRA. Patient given Basliximab for induction. EBV +/+, CMV +/+ ?? Interim Hx: Patient has a history of recurrent UTIs and is now s/p ureteral reconstructive surgery. Patient recently seen and ID and is scheduled to start Harvoni treatment for HCV that was diagnosed in 2014 (patient received kidney transplant from HCV donor). Patient denies any current medical complaints and describes feeling well. Patient has had an approximate 15lb weight increase over the last month. Patient also describes worsening glycemic control and serum glucose was 330 this AM. Renal function remains stable with Cr of 1.29 this AM. Patient admits to decreased activity and increased PO intake (especially increased sweets/ high sugar foods). Continued good PO fluid intake of approximately 3L. Patient is compliant with current medication regimen ?? ROS: Denies fevers, chills, nausea, vomiting, diarrhea, abd pain, chest pain, sob. Otherwise all other review of systems were neither positive or negative ?? Medications: Current Outpatient Prescriptions on File Prior to Visit Medication Sig Dispense Refill ??? ledipasvir-sofosbuvir 90-400 mg Tablet Take 1 tablet by mouth daily for 84 days. 84 tablet 0 ??? tacrolimus (PROGRAF) 1 mg Capsule Take 1 capsule by mouth 2 times daily. Take one capsule in the morning and one capsule in the evening. Code Z94.0 60 capsule 0 ??? potassium phosphate, monobasic, (K-PHOS) 500 mg Tablet, Soluble Take 3 tabs at lunch time and 3tabs at bedtime 180 tablet 3 ??? ascorbic acid, vitamin C, (VITAMIN C) 500 mg Tablet Take 1 tablet by mouth 3 times daily. 30 tablet 3 ??? clopidogrel (PLAVIX) 75 mg Tablet Take 75 mg by mouth daily. ??? calciTRIol (ROCALTROL) 0.5 mcg Capsule Take 1 capsule by mouth daily. 30 capsule 11 ??? tamsulosin (FLOMAX) 0.4 mg Capsule, Sust. Release 24 hr Take 1 capsule by mouth nightly. 30 capsule 11 ??? Magnesium Gluconate 27 mg (500 mg) [...] every 6 hours as needed for Pain. ??? mycophenolate (CELLCEPT) 250 mg Capsule Take 1 capsule by mouth 2 times daily. No current facility-administered medications on file prior to visit. Allergies / ADRs: No Known Allergies ?? PHYSICAL EXAM: Vital Signs Heart Rate: 67 BP: 136/77 Patient Position: Sitting Gen - AAO x 3 in NAD Skin - No exanthem HEENT - Mucous membranes moist. PERRL, EOMI Chest: Lungs clear to ausculatation w/o wheezes/ rhonchi/ crackles. Heart - S1 and S2 clear w/o murmur, gallop, or rub. JVP not elevated. Abd - Soft. + BS. No bruit. Non tender. No organomegaly. Graft NT Ext - Warm. No cyanosis. No dependent edema. ?? Labs/ Imaging: Lab Results Component Value Date WBC 8.0 08/12/2016 HGB 15.8 08/12/2016 HCT 44.9 08/12/2016 MCV 90.5 08/12/2016 PLATELET 236 08/12/2016 Lab Results Component Value Date NA 135 08/12/2016 K 4.2 08/12/2016 CL 96 (L) 08/12/2016 CO2 24 08/12/2016 BUN 14 08/12/2016 CREATININE 1.29 08/12/2016 GLUCOSE 330 (H) 08/12/2016 GLUCFASTING 254 (H) 05/20/2016 CALCIUM 9.9 08/12/2016 Lab Results Component Value Date ALT 28 08/12/2016 AST 22 08/12/2016 ALKPHOS 74 08/12/2016 BILITOT 1.4 (H) 08/12/2016 BILIDIR 0.3 08/12/2016 ALBUMIN 4.3 08/12/2016 PROT 7.7 08/12/2016 Lab Results Component Value Date CALCIUM 9.9 08/12/2016 PHOS 2.6 08/12/2016 Lab Results Component Value Date PTH 164 (H) 07/11/2014 CALCIUM 9.9 08/12/2016 PHOS 2.6 08/12/2016 Lab Results Component Value Date URICACID 6.3 08/12/2016 Component Value Date/Time SPGRAVITYUA 1.023 08/12/2016 0950 PHUADIP 6.0 08/12/2016 0950 PROTEINUADIP 30 (A) 08/12/2016 0950 GLUCOSEU >=500 (CRIT) 08/12/2016 0950 KETONESUA 5 (A) 08/12/2016 0950 UROBILIUADIP Normal 08/12/2016 0950 BLOODUADIP Negative 08/12/2016 0950 NITRATEUA Negative 08/12/2016 0950 LEUKOESTERUA Negative 08/12/2016 0950 WBCUA 5 (H) 08/12/2016 0950 BILIRUBINUA Negative 08/12/2016 0950 Urine Protein/ Creatinine Ratio: 0.2 ?? Impression/ Plan: Graft Function: -continued excellent graft function -s/p Boari flap repair, and previous history of recurrent UTIs -no signs/ symptoms of UTI, no UTI on U/A -renal function stable --> Cr was 1.29 this AM -increased proteinuria and glucosuria on U/A this AM -UPC increased from 0.1 --> 0.2gm Immunosuppression: -patient is compliant with medications -continue prograf 1mg PO BID -continue cellcept 250mg PO BID HTN: -controlled, at goal HCV: -patient scheduled to start Tx --> Dina DM2: -uncontrolled -referral to Endocrinology -capacity planning manager met with the patient and made recommendations regarding dietary changes RTC in 1 month Tanmay Camara DO Nephrology Fellow [facility] I reviewed all of the above findings and assessment of Dr. Camara, edited the above note to reflect my assessment and examination and formulated the recommendations which accurately reflect mine. * Herlinda Bell RD - 08/12/2016 10:00 AM EST [facility] Post Transplant Nutrition Follow Up Date: 08/13/2016 Patient: Cody Bolden Transplant Date: 09/16/15 [place] organ [facility] diagnosis: Transplant: Mr. Cody Bolden is a White Not nor 65 y.o. male who is Status Post Kidney transplantation on 09/16/15. Patient was seen by Nutrition services on 08/12/2016 for follow up. Patient states that he is feeling well and has no complaints. He is eating well, but increased amounts of pasta and bread, brownies, and crumb cake at breakfast lately. Wt Readings from Last 3 Encounters: 08/12/16 99.3 kg (219 lb) 07/30/16 94.6 kg (208 lb 9.6 oz) 07/08/16 92.4 kg (203 lb 9.6 oz) Today's vital signs: BP 136/77 (BP Location (NBP): Right arm, Patient Position: Sitting, BP Cuff Sizes: Large Adult (32-43 cm)) Pulse 67 Ht 180.3 cm (5' 11) Wt 99.3 kg (219 lb) BMI 30.54 kg/m2 Estimated body mass index is 30.54 kg/(m^2) as calculated from the following: Height as of this encounter: 180.3 cm (5' 11). Weight as of this encounter: 99.3 kg (219 lb). Weight pre-Txp: 100.7 Kg (222 lbs) Lab Results Component Value Date HGB 15.8 08/12/2016 HCT 44.9 08/12/2016 NA 135 08/12/2016 K 4.2 08/12/2016 BUN 14 08/12/2016 CREATININE 1.29 08/12/2016 GLUCOSE 330 (H) 08/12/2016 CALCIUM 9.9 08/12/2016 MAGNESIUM 0.68 (L) 08/12/2016 PHOS 2.6 08/12/2016 ALBUMIN 4.3 08/12/2016 Cholesterol (in eD-H the component name CHLPL=Cholesterol) Lab Results Component Value Date CHLPL 126 08/12/2016 Assessment: Patient has gained ~15# over the past month. He has been eating more desserts, and pasta and bread are his alessandro. Patient with elevated BG level today and increased glucose in his urine, >500mg/dl, for the first time in all his visits. Patient has also been drinking apricot nectar. Therefore, expect that the weight gain, the desserts, the pasta and bread, along with the apricot nectar, everyt neeru in large quantities, have contributed to the rise in BG and spilling in urine. This report writer discussed this with patient and counseled him on limiting his carbohydrate intake per meal to ~60gms. This report writer discussed carbohydrate choices to equal 60gms or so per meal and rationale. This report writer provided printed information on what we discussed and sample meal plans. He was strongly encouraged to avoid simple carbohydrates; patient verbalizes comprehension. Patient's waspresent for the counseling session as well. Plan: Carbohydrate controlled diet, limiting intake to ~60gms carb per meal. Patient is already fairly active. Patient will follow up in Transplant Clinic with Dr. Eagle in a month, scheduled on 09/15/2016. Nutrition follow up at that time if advised. Patient has means for contact and will phone should any further questions arise. documented in this encounter Plan of Treatment Upcoming Encounters Date Type Department Care Team (Late st Contact Info) Description 04/15/2024 10:00 AM EDT Hospital Encounter Non-Invasive [place] [address] Arrived documented as of this encounter Goals Goal Patient Goal Type Associated Problems Recent Progress Patient-Stated? Author DH Home Medication Compliance and Understanding Patient Facing Action Plan On track( 017 10:41 AM EDT) Selena Scott, [facility] Note: Patient Goal: Clear hepatitis C Timeframe to meet goal: within 12 weeks of therapy documented as of this encounter Results * (ABNORMAL) Reticulocyte Count (08/12/2016 9:31 AM EST) Reticulocyte % 2.5 0.7 - 2.6 % [facility] Retic Abs # 0.130(H) 0.030 - 0.120 x10(6)/mc L [facility] Immature Retic% 9.1 0.0 - 15.6 % [facility] Reticulated Hgb 36.1 31.3 - 40.2 pg [facility] Blood specimen (specimen) 08/12/2016 9:31 AM EST 08/12/2016 9:38 AM EST Narrative Resulting Agency Comment Spec In Lab Tal Eagle MD HEMATOLOGY ORDERA BLES Performing Organization Address City/State/[facility] Co de Phone Number [facility] [place] [address] documented in this encounter Visit Diagnoses Diagnosis Kidney replaced by transplant Type 2 diabetes mellitus with complication, without long-term current use of insulin Immunosuppression Unspecified disorder of immune mechanism Essential hypertension Unspecified essential hypertension Weight increase Abnormal weight gain CAH (chronic active hepatitis) Other chronic hepatitis documented in this encounter Care Teams Cad Administrator Relationship Specialty Start Date End Date Urbano Denis DO [address] [place] [address] PCP - General 09/03/12 03/17/22 Ruchi Valles RN Nurse Clinic Transplant Surgery 07/30/15 documented as of this encounter
--- OUTSIDE RECORDS SUMMARY | 2024-02-14 11:27 | XMS_ITS | Encounter Summary ---
Author Organization [place] [address] Care Team Providers Care Tubular Riveter Name Role Phone AdeelUrbano toscano Primary Care Provider Encounter Details Date Type Department Care Team (Late st Contact Info) Description 07/25/2016 Telephone [place] [address] Samia Escalante, RN Social History Tobacco Use [...] Miscellaneous Notes * Telephone Encounter - Samia Escalante RN - 07/25/2016 4:45 PM EST Called pt to tell him that it is okay for him to swim in chlorinated pools, oceans, and rock-bottomed bodies of water. NOT in hot tubs, Jacuzzi's, or mud- bottomed bodies of water. 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[facility] Transplant documented in this encounter Plan of Treatment Upcoming Encounters Date Type Department Care Team (Late st Contact Info) Description 04/15/2024 10:00 AM EDT Hospital Encounter Non-Invasive [place] [address] Arrived documented as of this encounter Visit Diagnoses Not on filedocumented in this encounter Care Teams Tubular Riveter Relationship Specialty Start Date End Date Urbano Denis DO [address] [place] [address] PCP - General 09/03/12 03/17/22 Ruchi Valles RN Nurse Clinic Transplant Surgery 07/30/15 documented as of this encounter
--- OUTSIDE RECORDS SUMMARY | 2024-02-14 11:27 | XMS_ITS | Encounter Summary ---
Author Organization [facility] [place] [address] Care Team Providers Care Roving Winder Name Role Phone AdeelUrbano toscano Primary Care Provider Reason for Visit * Reason Onset Date Comments Medication Refill 06/18/2016 Encounter Details Date Type Department Care Team (Late st Contact Info) Description 06/18/2016 Refill [place] [address] Joanne Nogueira CMA Social History Tobacco Use [...] Telephone Encounter - Joanne Nogueira CMA - 06/19/2016 8:43 AM EST This prescription destroyed by Storage Genetics[employer] in the presents of Martina Quezada LPN documented in this encounter Plan of Treatment Upcoming Encounters Date Type Department Care Team (Late st Contact Info) Description 04/15/2024 10:00 AM EDT Hospital Encounter Non-Invasive [place] [address] Arrived documented as of this encounter Visit Diagnoses Not on filedocumented in this encounter Care Teams Roving Winder Relationship Specialty Start Date End Date Urbano Denis DO [address] [place] [address] PCP - General 09/03/12 03/17/22 Ruchi Valles RN Nurse Clinic Transplant Surgery 07/30/15 documented as of this encounter
--- OUTSIDE RECORDS SUMMARY | 2024-02-14 11:27 | XMS_ITS | Encounter Summary ---
Author Organization [facility] [place] [address] Care Team Providers Care Electrotherapist Name Role Phone Urbano Denis DO Primary Care Provider [phone] Reason for Visit * Auth/Cert Specialty Diagnoses / Procedures Referred By Humberto t Referred To Contact Diagnoses Sepsis UROSEPSIS S/P TRANSPLANT Referral ID Status Reason Start Date Expiration Date Visits Re quested Visits Authorized [id number] 1 1 Encounter Details Date Type Department Care Team (Latest Contact Info) Description 06/22/2016 6:01 PM EST - 06/25/2016 11:22 AM EST Hospital Encounter [address] [place] [address] Tal Eagle MD [facility] [place] [address] ESRD (end stage renal disease) Discharge Disposition: Home Social History Tobacco Use [...] Sign Reading Time Taken Comments Blood Pressure 150/79 06/25/2016 8:30 AM EST Pulse 131 06/22/2016 7:35 PM EST Temperature 36.7 ??C (98.1 ??F) 06/25/2016 8:30 AM ES T Respiratory Rate 17 06/25/2016 8:30 AM EST Oxygen Saturation 95% 06/25/2016 8:30 AM EST Inhaled Oxygen Concentration - - Weight 89.9 kg (198 lb 4.8 oz) 06/24/2016 6:33 A M EST Height 180.3 cm (5' 11) 06/23/2016 5:52 AM EST Body Mass Index 27.66 06/23/2016 5:52 AM EST documented in this encounter Discharge Summaries * Tal Eagle MD - 06/25/2016 8:50 AM EST UROLOGY SERVICE Inpatient - Discharge Summary Patient Name: Cody Bolden Patient Age: 65 y.o. : 1950 Attending Physician: Tal Eagle MD Date of Admission: 06/22/2016 Date of Discharge: 06/24/2016 Diagnosis: Active Hospital Problems Diagnosis ??? Sepsis Resolved Hospital Problems Diagnosis Date Resolved No resolved problems to display. Operations/Major Procedures: Operations: * No surgery found * * Surgery not found *: HPI: Cody Bolden is a 65 y.o. male, who is s/p donor kidney transplantation in September of this year by Dr. Larkin. His course has been complicated by ureteral stricture with subsequent dilations and stenting. and underwent series of ureteral dilation attempts with NU stenting across the str icture. He has also had multiple episodes of urosepsis requiring hospitalization and IV ABX. On 05/20/2016 where he underwent Boari flap reconstruction. His post-operative coarse was complicated by an ileus. He was successfully discharged home on 05/28 with a capped nephrostomy tube, a moran catheter and an indwelling stent. He has been of usual state of health since discharge. He has had several follow- up visits in clinic,as well. He is admitted today after being seen at an outside hospital for two day history of fever (102 max measured at home). He states that he has also noted increased difficulty urinating during this period. He states that he has been following his outpatient medication regimen as prescribed by t he transplant team without variation. He denies any recent sick contacts, recent travel, or changesto his daily routine. He denies nausea, vomiting, achiness, headaches, or flank pain. He lives at home with his with visiting services. ?? Hospital Course: Cody Bolden was admitted to [facility] on 06/22/2016from OSH for concern for UTI. IV antibiotics were started and he was afebrile on HD2. ID was consulted for antibiotic therapy course recommendations. Cody Bolden's pain was adequately controlled, he was maintaining adequate oxygen saturation on room air, and was hemodynamically stable. He was tolerating a diet without abdominal complaints and voiding adequately. WBC and Hgb were stable. He was ambulating independently. Cody Bolden was evaluated by the Transplant team and deemed medically stable for discharge on 06/24/2016. Updated Allergies/ADRs: No Known Allergies Pending Lab Data at Discharge: None Condition at Discharge: Stable Important Studies and Lab Data: Labs: Recent Labs 06/24/16 0624 06/22/16 2200 WBC 8.3 13.8* HGB 12.6* 12.8* HCT 36.0* 36.5* PLATELET 139* 138* PT -- 15.0 INR -- 1.1 PTT -- 36* Recent Labs 06/24/16 0624 06/22/162015 NA 137 132* K 3.5 3.8 CL 95* 94* CO2 26 23 BUN 16 15 CREATININE 1.12 1.23 GLUCOSE 150 137 CALCIUM 8.9 9.0 Studies: No imaging performed Discharge Examination: Last value Range last 12 hrs Temperature Temp: 36.7 ??C (98.1 ??F) Temp: [36.7 ??C (98.1 ??F)] Heart Rate Heart Rate: 131 Heart Rate: -- Blood Pressure BP: 150/79 BP: (139-150)/(68-79) Respiratory Rate Resp: 17 Resp: [16-17] SpO2 SpO2: 95 % SpO2: [89 %-98 %] I/Os: I/O last 3 completed shifts: In: 2112 [P.O.:1900; I.V.:213] Out: 3700 [Urine:3700] I/O this shift: In: 340 [P.O.:340] Out: 200 [Urine:200] Physical Exam: General: NAD, A&Ox3, resting in bed, cooperative HEENT: normocephalic, anicteric sclerae CVS: RRR, no m/r/g Pulm: CTAB, no wheezes or rhonchi Abd: soft, non-tender, non-distended. No guarding. Skin: warm, dry Ext: well perfused, no edema Neuro: Grossly intact, nonfocal, moving all four extremities spontaneously. ?? Discharge to: Home Discharge Conditions/Prognosis: Stable Discharge Medications: The following medications have been prescribed for you. If you notice any adverse reactions to your medications, please contact your primary care physician immediately or go tothe nearest Emergency Department. Your Medications New Medications Dose Details ascorbic acid (vitamin C) 500 mg Tab Commonly known as: VITAMIN C Take 1 tablet by mouth 3 times daily. 500 mg Quantity: 30 tablet Refills: 3 ciprofloxacin 500 mg Tab Commonly known as: CIPRO Take 1 tablet by mouth 2 times daily for 11 days. 500 mg Quantity: 22 tablet Refills: 0 Continued medications with new dosing Dose Details oxyCODONE 5 mg Tab Commonly known as: ROXICODONE Take 1 tablet by mouth every 4 hours as needed for Pain. What changed: Another medication with the same name was removed. Continue taking this medication, and follow the directions you see here. 5 mg Quantity: 30 tablet Refills: 0 tacrolimus 1 mg Cap Commonly known as: PROGRAF Take 1 capsule by mouth 2 times daily. Take one capsule in the morning and one capsule in the evening. Code Z94.0 What changed: - when to take this - additional instructions - Another medication with the same name was removed. Continue taking this medication, and follow the directions you see here. 1 mg Quantity: 60 capsule Refills: 0 Continued medications, unchanged Dose Details acetaminophen 500 mg Tab Commonly known as: TYLENOL Take 1,000 mg by mouth every 6 hours as needed for Pain. 1000 mg Refills: 0 calciTRIol 0.5 mcg Cap Commonly known as: ROCALTROL Take 1 capsule by mouth daily. 0.5 mcg Quantity: 30 capsule Refills: 11 clopidogrel 75 mg Tab Commonly known as: PLAVIX Take 75 mg by mouth daily. 75 mg Refills: 0 Magnesium Gluconate 27 mg (500 mg) Tab Take 6 tablets at breakfast and at dinner Quantity: 360 tablet Refills: 3 mycophenolate 250 mg Cap Commonly known as: CELLCEPT Take 1 capsule by mouth 2 times daily. 250 mg Refills: 0 omeprazole 20 mg Cpdr Commonly known as: PriLOSEC Take 20 mg by mouth daily as needed. 20 mg Refills: 0 potassium phosphate (monobasic) 500 mg Tbso Commonly known as: K-PHOS Take 3 tabs at lunch time and 3 tabs at bedtime Quantity: 180 tablet Refills: 3 sulfamethoxazole-trimethoprim 400-80 mg Tab Commonly known as: BACTRIM;SEPTRA Take 1 tablet by mouth daily. 1 tablet Quantity: 60 tablet Refills: 2 SYNTHROID 100 mcg Tab Take 100 mcg by mouth daily. Generic drug: levothyroxine 100 mcg Refills: 0 tamsulosin 0.4 mg Cp24 Commonly known as: FLOMAX Take 1 capsule by mouth nightly. 0.4 mg Quantity: 30 capsule Refills: 11 Follow-up Care & Plans: For questions, orders or appointments related to your continuing care after your discharge, you or your provider should contact the physician that managed that part of your care. Urology Clinic: [phone] PCP: @PCP@, . Please follow-up with your PCP in 1-2 weeks or sooner as needed. Issues to be followed-up with your PCP: 1. Scheduled Appointments: The following appointments have been scheduled on your behalf: Future Appointments and Orders Future Appointments Provider Department Dept Phone 07/08/2016 9:30 AM LAB, [facility] Lab 07/08/2016 10:30 AM Que Amaro MD Transplant [phone] 07/22/2016 9:30 AM LAB, [facility] Lab 07/22/2016 10:30 AM Que Amaro MD Transplant [phone] 09/15/2016 9:00 AM LAB, [facility] Lab 09/15/2016 10:00 AM Tal Eagle MD Transplant [phone] Future Orders Complete By Expires Urinalysis with reflex Culture [[id number] Custom] 07/01/2016 06/24/2017 Process Instructions: Scheduling Instructions: Comments: Questions: Preferred urine source for collection: Clean Catch Urine Outpatient Services/Studies: No discharge procedures on file. Instructions Given to Patient at Discharge: Patient Instructions Provider Instructions Discharge Instructions CALL YOUR PHYSICIAN IF: ??? You have a fever greater than 101 degrees Farenheit within one month of your surgery. ? ? You have diarrhea or vomiting for >24 hours, or stop having bowel movements and passing flatus ??? You have worsening pain, not controlled with your pain medication. ??? You develop redness, swelling, or new drainage from your wound. Prescriptions: ? You have been prescribed an antibiotic medication called ciprofloxacin. Please take the entire course of this medication for urinary tract infection treatment. ? You have been prescribed vitamin C. Please take as directed for urinary tract infection prophylaxis. Diet: ? Eat a well-balanced diet. Fresh fruits, vegetables and fiber-containing foods are recommended. This will assist in wound healing. Recommendations: ? Take several slow, short walks each day for the first two weeks, and gradually increase your distance. We recommend at least 4 times a day. Follow-up Appointments: Please obtain a urinalysis in 1 week. This can be done at [facility] or a facility closer to home. Ask for the results to be sent to [facility]. A follow-up appointment will be made to see Dr. Amaro in Transplant clinic in two weeks following your course of antibiotics. This appointment will be made on your behalf, appointment information will be provided by telephone or mail. Provider Contact Information: If you have any questions, or need to report a problem, you can call the Solid Organ Transplant Department anytime (day, night, weekend, holiday) at . After hours, please follow the instructions on the message. You can also reach the release coordinator after hours by calling (ask for the release coordinator on-call). General Instructions None Call your doctor if: Please call your doctor immediately or go to an Emergency Department if you notice worsening pain not controlled by pain medications, uncontrolled headache, vision changes, chest pain, difficulty breathing, persistent nausea and vomiting, new redness or swelling in any extremities, new onset weakness or changes in sensation, or for any fevers greater than 101.3 F. Your care was managed by the Urologic Surgery Team at [facility]. If you have any questions or concerns, please feel free to contact us. Provider Contact Information: [facility] (after business hours): CC: Urbano Denis DO [phone] Signed: Jay Vargas MD 06/25/2016 I have seen the patient and reviewed the resident's above history and I agree with the details as written. The assessment and plan were formulated in discussion with me and I agree with them as documented. Pertinent History: Klebsiella UTI, some resistances Pertinent Exam: Afebrile, no edema and graft NT and no bruits Major issues addressed: Resolution of UTI symptoms Plan: Ascorbic acid and ciprofloxacin, 14 days; RTC [address] Amaro documented in this encounter Discharge Instructions * Patient Instructions* Jay Vargas MD - 06/24/2016 12:07 PM EST Provider Instructions Discharge Instructions CALL YOUR PHYSICIAN IF: ??? You have a fever greater than 101 degrees Farenheit within one month of your surgery. ? ? You have diarrhea or vomiting for >24 hours, or stop having bowel movements and passing flatus ??? You have worsening pain, not controlled with your pain medication. ??? You develop redness, swelling, or new drainage from your wound. Prescriptions: ? You have been prescribed an antibiotic medication called ciprofloxacin. Please take the entire course of this medication for urinary tract infection treatment. ? You have been prescribed vitamin C. Please take as directed for urinary tract infection prophylaxis. Diet: ? Eat a well-balanced diet. Fresh fruits, vegetables and fiber-containing foods are recommended. This will assist in wound healing. Recommendations: ? Take several slow, short walks each day for the first two weeks, and gradually increase your distance. We recommend at least 4 times a day. Follow-up Appointments: Please obtain a urinalysis in 1 week. This can be done at [facility] or a facility closer to home. Ask for the results to be sent to [facility]. A follow-up appointment will be made to see Dr. Amaro in Transplant clinic in two weeks following your course of antibiotics. This appointment will be made on your behalf, appointment information will be provided by telephone or mail. Provider Contact Information: If you have any questions, or need to report a problem, you can call the Solid Organ Transplant Department anytime (day, night, weekend, holiday) at . After hours, please follow the instructions on the message. You can also reach the release coordinator after hours by calling (ask for the release coordinator on-call). documented in this encounter Medications at Time of Discharge Medication Sig Dispensed Refills Start Date End Date ciprofloxacin (CIPRO) 500 mg Tablet Take 1 tablet by mouth 2 times daily for 11 days. 22 tablet 06/25/2016 07/06/2016 tacrolimus (PROGRAF) 1 mg Capsule Take 1 [...] Take 75 mg by mouth daily. 02/17/2020 oxyCODONE (ROXICODONE) 5 mg Tablet Take 1 tablet by mouth every 4 hours as needed for Pain. 30 tablet 06/18/2016 08/12/2016 calciTRIol (ROCALTROL) 0.5 mcg Capsule Take 1 [...] needed for Pain. Reported on 09/15/2016 11/26/2017 omeprazole (PRILOSEC) 20 mg Capsule, Delayed Release(E.C.) Take 20 mg by mouth daily as needed. 08/12/2016 mycophenolate (CELLCEPT) 250 mg Capsule Take 1 capsule by mouth 2 times daily. 01/03/2016 12/10/2016 documented as of this encounter Progress Notes * Gonzalo Granados RN - 06/25/2016 10:17 AM EST Patient Name: Cody Bolden Patient Age: 65 y.o. Birthdate: 1950 Admit date: 06/22/2016 Attending Physician: Tal Eagle MD Patient is being dc'd to home, no VNA. IV dc'd with catheter intact, dc info explained and understood, all belongings returned to patient. * Joseph Plascencia MD - 06/24/2016 9:47 AM EST Images from the original note were not included. INFECTIOUS DISEASE FOLLOW-UP NOTE Active ID Issue(s): Sepsis, resolved UTI, GNR Antimicrobial Therapy: piperacillin/tazobactam Intercurrent Events/Subjective Data: Feels well, took a shower, no new complaints. Physical Exam: Last value Range last 24 hrs Temperature Temp: 37 ??C (98.6 ??F) Temp: [36.7 ??C (98.1 ??F)-37.5 ??C (99.5 ??F)] General Looks well, sitting in chair HEENT No jaundice Laboratory: Lab Results Component Value Date WBC 8.3 06/24/2016 HGB 12.6 (L) 06/24/2016 HCT 36.0 (L) 06/24/2016 PLATELET 139 (L) 06/24/2016 Lab Results Component Value Date CREATININE 1.12 06/24/2016 Lab Results Component Value Date ALT 13 06/22/2016 AST Not Perf 06/22/2016 ALKPHOS 59 06/22/2016 BILITOT 2.4 (H) 06/22/2016 Microbiology: Blood Cultures: 06/22 NGTD Urine Cultures: 06/22 at [facility]: > 100k GNR 06/18 NGTD 06/22 NGTD Radiology/Studies/Procedures: None new Assessment: Cody Bolden is a 65 y.o. male with a history of HCV, DM, HTN and renal failure due to hypertensive nephropathy, who received a donor kidney transplantation in 09/2015, which has been complicated by a ureteral stricture that required a permanent percutaneous nephrostomy and internal stent and lead to multiple bouts of UTI with our without bacteremia. ?? He finally underwent a complex reconstruction of his ureter on 05/20. His percutaneous nephrostomy was removed and he did well at home, off antibiotics. On 06/18, his internal stent was removed. He received mary-procedural ciprofloxacin, but no further antibiotics. ?? He now presents with sepsis, likely due to a UTI, with > 100k ESBL Klebsiella oxytoca in his urine culture at [facility]. Clinically improved on piperacillin/tazobactam, with negative cultures here. ?? Most likely, his infection is related to the stent removal. We recommend to switch to ciprofloxacinand to complete a 14 day course for a complicated UTI. ?? Recommendations: - stop piperacillin/tazobactam - start ciprofloxacin 500 mg PO bid to complete a 14 day course from 06/22 to 07/06 - I will ask for a rescheduled ID clinic appointment to discuss HCV treatment ?? This patient was seen and discussed with ID attending Dr. Plascencia. Recommendations discussed with primary treating team. ?? ID consult service will sign off. Do not hesitate to page us at [phone] with any further questions or concerns. ? Franko Kim MD Infectious Disease Fellow Pager [phone] ID Attending I agree with impression and recommendations above. I reviewed data set and guided decision-making but did not re-examine the patient today. * Tal Eagle MD - 06/24/2016 9:40 AM EST INPATIENT DAILY PROGRESS NOTE Patient Name: Cody Bolden Patient Age: 65 y.o. Birthdate: 1950 Admit date: 06/22/2016 Attending Physician: Tal Eagle MD Summary of Assessment/Plan: 65 YOM well known to this service presents as transfer from OSH. Had stent removal on Thursday, developed fever over the weekend with positive UA. Treating with Vanc/Zosyn and consultation with ID. Cultures pending. Appreciate ID recs, urology recs when available. ID: Cody Bolden is a 65 y.o. male s/p donor kidney transplantation in September of this year by Dr. Larkin. His course has been complicated by ureteral stricture with subsequent dilationsand stenting. and underwent series of ureteral dilation attempts with NU stenting across the stricture. He has also had multiple episodes of urosepsis requiring hospitalization and IV ABX. On 05/20/2016 where he underwent Boari flap reconstruction. His post-operative coarse was complicated by an ileus. He was successfully discharged home on 05/28 with a capped nephrostomy tube, a moran catheter and an indwelling stent. He has been of usual state of health since discharge. He has had several follow- up visits in clinic,as well. He is admitted today after being seen at an outside hospital for two day history of fever (102 max measured at home). He states that he has also noted increased difficulty urinating during this period. He states that he has been following his outpatient medication regimen as prescribed by t transplant team without variation. He denies any recent sick contacts, recent travel, or changesto his daily routine. He denies nausea, vomiting, achiness, headaches, or flank pain. He lives at home with his with visiting services. ?? 24hr events/S: No complaints this AM. Pain is well controlled. Tolerating diet, no n/v, having BMs.Ambulating well. Voiding spontaneously. No cp/sob. Following culture data, will receive final recs from ID prior to dispo planning. O: Last value Range last 24hrs Temperature Temp: 37 ??C (98.6 ??F) Temp: [36.7 ??C (98.1 ??F)-37.5 ??C (99.5 ??F)] Heart Rate Heart Rate: 131 Heart Rate: -- Blood Pressure BP: 140/64 BP: (112-169)/(50-82) Respiratory Rate Resp: 20 Resp: [16-20] SpO2 SpO2: 94 % SpO2: [88 %-97 %] 06/23 0701 - 06/24 0700 In: 2648 [P.O.:1760; I.V.:888] Out: 2450 [Urine:2450] Regular diet Physical Exam: General: NAD, A&Ox3, resting in bed, cooperative HEENT: normocephalic, anicteric sclerae CVS: RRR, no m/r/g Pulm: CTAB, no wheezes or rhonchi Abd: soft, non-tender, non-distended. No guarding. Skin: warm, dry Ext: well perfused, no edema Neuro: Grossly intact, nonfocal, moving all four extremities spontaneously. Lines/Drains: Recent Labs 06/24/16 0624 06/22/16 2200 WBC 8.3 13.8* HGB 12.6* 12.8* HCT 36.0* 36.5* PLATELET 139* 138* PT -- 15.0 INR -- 1.1 PTT -- 36* Recent Labs 06/24/16 0624 06/22/162015 NA 137 132* K 3.5 3.8 CL 95* 94* CO2 26 23 BUN 16 15 CREATININE 1.12 1.23 GLUCOSE 150 137 CALCIUM 8.9 9.0 Other Labs: Imaging: None Micro: UCx pending Cards/Other studies: None ASSESSMENT: Cody Bolden is a 65 y.o. male s/p donor kidney transplant presenting with UTI. PLAN Neuro - pain control with tylenol CV - ASA 81 Pulm - BRIONNA GI - BRIONNA - No moran - Urology consult, low utility for ultrasound, defer at this time - Flomax 0.4 qhs FEK - Regular diet - Dc fluids today - Calcitriol ID - UTI - dc Vanc - Zosyn - ID consult - vitamin C 500 tid for urine acidification Heme - BRIONNA Endo - Hypothyroid - Synthroid Immunosuppression - Prograf 07/06 - Cellcept 250 bid PPX Ambulating tid DISPO: Stable on floor. Code status: FULL Jay Vargas MD I reviewed all of the above findings and assessment of Dr. Vargas edited the above note to reflect my assessment and examination and formulated the recommendations which accurately reflect mine. * Yeimi Elam Patricia - 06/24/2016 7:34 AM EST Urology Inpatient Progress Note ID: Cody Bolden is a 65 y.o. 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 24hr events: ?? GNR in OSH urine culture ?? Afebrile overnight, WBC normal this AM, serum Cr at baseline ?? Minimal PVRs on bladder scan after voids O: Last value Range last 24hrs Temperature Temp: 37.1 ??C (98.8 ??F) Temp: [36.7 ??C (98.1 ??F)-37.5 ??C (99.5 ??F)] Heart Rate Heart Rate: 131 Heart Rate: -- Blood Pressure BP: 141/63 BP: (112-169)/(50-82) Respiratory Rate Resp: 16 Resp: [16-20] SpO2 SpO2: 97 % SpO2: [88 %-98 %] 06/23 0701 - 06/24 0700 In: 2648 [P.O.:1760; I.V.:888] Out: 2450 [Urine:2450] Physical Exam: General: No acute distress. Card: RRR Lungs: CTA bilaterally Abd: well healed midline incision, soft, ND, minimal RLQ tenderness to palpation, none on the left,no CVA tenderness b/l Recent Labs 06/22/16 2200 WBC 13.8* HGB 12.8* HCT 36.5* PLATELET 138* PT 15.0 INR 1.1 PTT 36* Recent Labs 06/22/162015 NA 132* K 3.8 CL 94* CO2 23 BUN 15 CREATININE 1.23 GLUCOSE 137 CALCIUM 9.0 Microbiology: 06/22 BCx - no growth at 1 day 06/22 UCx - no growth OSH UCx - >100K GNR ASSESSMENT: Cody Bolden is a 65 y.o. male s/p Boari flap for transplant ureteral stricture and recurrent urosepsis episodes presenting with fever and recurrent UTI. Clinically improving on Zosyn. RECOMMENDATIONS: -f/u OSH urine culture, continue antibiotics per ID -consider further suppressive antibiotic course after this UTI treated, will defer to ID recs -hold off on further imaging at this time YEIMI ELAM MD * Tal Eagle MD - 06/23/2016 8:00 AM EST INPATIENT DAILY PROGRESS NOTE Patient Name: Cody Bolden Patient Age: 65 y.o. Birthdate: 1950 Admit date: 06/22/2016 Attending Physician: Tal Eagle MD Summary of Assessment/Plan: 65 YOM well known to this service presents as transfer from OSH. Had stent removal on Thursday, developed fever over the weekend with positive UA. Treating with Vanc/Zosyn and consultation with ID. Cultures pending. Appreciate ID recs, urology recs when available. ID: Cody Bolden is a 65 y.o. male s/p donor kidney transplantation in September of this year by Dr. Larkin. His course has been complicated by ureteral stricture with subsequent dilationsand stenting. and underwent series of ureteral dilation attempts with NU stenting across the stricture. He has also had multiple episodes of urosepsis requiring hospitalization and IV ABX. On 05/20/2016 where he underwent Boari flap reconstruction. His post-operative coarse was complicated by an ileus. He was successfully discharged home on 05/28 with a capped nephrostomy tube, a moran catheter and an indwelling stent. He has been of usual state of health since discharge. He has had several follow- up visits in clinic,as well. He is admitted today after being seen at an outside hospital for two day history of fever (102 max measured at home). He states that he has also noted increased difficulty urinating during this period. He states that he has been following his outpatient medication regimen as prescribed by the transplant team without variation. He denies any recent sick contacts, recent travel, or changesto his daily routine. He denies nausea, vomiting, achiness, headaches, or flank pain. He lives at home with his with visiting services. ?? 24hr events/S: No complaints this AM. Pain is well controlled. Would like to eat, no n/v. Last BM yesterday, normal. Ambulating well. Voiding spontaneously. No cp/sob. O: Last value Range last 24hrs Temperature Temp: 37.5 ??C (99.5 ??F) Temp: [36.9 ??C (98.4 ??F)-39.2 ??C (102.6 ??F)] Heart Rate Heart Rate: 131 Heart Rate: [131] Blood Pressure BP: 148/73 BP: (125-171)/(55-120) Respiratory Rate Resp: 20 Resp: [16-22] SpO2 SpO2: 98 % SpO2: [94 %-100 %] 06/22 0701 - 06/23 0700 In: 2279 [I.V.:2015] Out: 1625 [Urine:1625] NPO diet (Give Meds) Physical Exam: General: NAD, A&Ox3, resting in bed, cooperative HEENT: normocephalic, anicteric sclerae CVS: RRR, no m/r/g Pulm: CTAB, no wheezes or rhonchi Abd: soft, non-tender, non-distended. No guarding. Skin: warm, dry Ext: well perfused, no edema Neuro: Grossly intact, nonfocal, moving all four extremities spontaneously. Lines/Drains: Recent Labs 06/22/16 2200 WBC 13.8* HGB 12.8* HCT 36.5* PLATELET 138* PT 15.0 INR 1.1 PTT 36* Recent Labs 06/22/162015 NA 132* K 3.8 CL 94* CO2 23 BUN 15 CREATININE 1.23 GLUCOSE 137 CALCIUM 9.0 Other Labs: Imaging: None Micro: UCx pending Cards/Other studies: None ASSESSMENT: Cody Bolden is a 65 y.o. male s/p donor kidney transplant presenting with UTI. PLAN Neuro - pain control with tylenol CV - ASA 81 Pulm - BRIONNA GI - BRIONNA - No moran - Urology consult, question US utility - Flomax 0.4 qhs FEK - Regular diet - Dc fluids today - Calcitriol ID - UTI - Vanc - Zosyn - ID consult Heme - BRIONNA Endo - Hypothyroid - Synthroid Immunosuppression - Prograf 1/0.5 - Cellcept 250 bid PPX Ambulating tid DISPO: Stable on floor. Code status: FULL Jay Vargas MD I reviewed all of the above findings and assessment of Dr. Vargas, edited the above note to reflect my assessment and examination and formulated the recommendations which accurately reflect mine. I have seen the patient and reviewed the resident's above history and I agree with the details as written. The assessment and plan were formulated in discussion with me and I agree with them as documented. Pertinent History: Afebrile, VS stable; asymptomatic from UTI standpoint Pertinent Exam: VS stable, no edema, graft NT no bruits Major issues addressed: Uncomplicated UTI in a patient s/p transplant urologic procedure Plan: Continue Vanc Zosyn until id urine culture made and sensitivities available * Sonia Collins RN - 06/22/2016 7:07 PM EST 1801 Patient arrived to floor alert and orientated, denies pain or discomfort, states he feels a little cold, palpable pulses, lungs clear, right IV, locked, paged vascular access to assess IV, per patient it had burned while getting vancomycin, nataliia Vargas to notify patients arrival, waitingfor orders. Patient voided small amount of yellow urine. documented in this encounter H&P Notes * Tal Eagle MD - 06/22/2016 7:46 PM EST DEPARTMENT OF SURGERY ADMISSION NOTE ADMISSION REASON: Two day history of fever with likely urosepsis Secondary Problems: Active Hospital Problems Diagnosis ??? Sepsis Resolved Hospital Problems Diagnosis Date Resolved No resolved problems to display. Active Non-Hospital Problems Diagnosis ??? Kidney replaced by transplant ??? Encounter for long-term (current) use of other medications ??? Aftercare following organ transplant ??? Dehydration ??? Ureteral stricture ??? Bacteremia due to coagulase-negative Staphylococcus ??? Fever ??? UTI (urinary tract infection) ??? RAY (acute kidney injury) ??? Kidney transplant infection ??? Renal failure ??? Chronic kidney disease, stage V ??? HCV (hepatitis C virus) ??? ESRD (end stage renal disease) ??? Hepatitis C virus infection ??? Essential hypertension ??? CGN (chronic glomerulonephritis) ??? DM type 2 (diabetes mellitus, type 2) ??? Hypertension ??? DJD (degenerative joint disease) ??? Hematuria HPI: Cody Bolden is a 65 y.o. male, who is s/p donor kidney transplantation in September of this year by Dr. Larkin. His course has been complicated by ureteral stricture with subsequent dilations and stenting. and underwent series of ureteral dilation attempts with NU stenting across the str icture. He has also had multiple episodes of urosepsis requiring hospitalization and IV ABX. On 05/20/2016 where he underwent Boari flap reconstruction. His post-operative coarse was complicated by an ileus. He was successfully discharged home on 05/28 with a capped nephrostomy tube, a moran catheter and an indwelling stent. He has been of usual state of health since discharge. He has had several follow- up visits in clinic,as well. He is admitted today after being seen at an outside hospital for two day history of fever (102 max measured at home). He states that he has also noted increased difficulty urinating during this period. He states that he has been following his outpatient medication regimen as prescribed by the transplant team without variation. He denies any recent sick contacts, recent travel, or changesto his daily routine. He denies nausea, vomiting, achiness, headaches, or flank pain. He lives at home with his with visiting services. PMH/PSH: Past Medical History Diagnosis Date ??? Back pain ??? Colon polyp ??? CVA (cerebral vascular accident) Per report but no deficits ??? ESRD (end stage renal disease) ??? GERD (gastroesophageal reflux disease) ??? HTN (hypertension) ??? Microhematuria ??? Type 2 diabetes mellitus Past Surgical History Procedure Laterality Date ??? Pro anastomosis, av, any site Left 05/09/2015 AV FISTULA CREATION, DIRECT HEMODIALYSIS, ANY SITE, EG ASHWINI FISTULA UPPER EXTREMITY performed by Que Amaro MD at [facility] OR ??? Pro transplantation of kidney N/A 09/16/2015 @KIDNEY TRANSPLANT, WITHOUT RECIPIENT NEPHRECTOMY performed by Franko Larkin MD at [facility] OR ??? Pro transplant, prep cadaver renal graft N/A 09/16/2015 @PREPARATION CADAVERIC RENAL ALLOGRAFT performed by Franko Larkin MD at [facility] OR ??? N/A 09/16/2015 ORGAN ACQUISITION RENAL, CADAVERIC performed by Franko Larkin MD at [facility] OR ??? Pro reimplant ureter, single ureter Left 05/20/2016 @URETERONEOCYSTOSTOMY ANASTOMOSIS OF SINGLE URETER TO BLADDER performed by Santosh Arredondo MD at [facility] OR ??? Pro reimplant ureter, single ureter N/A 05/20/2016 @URETERONEOCYSTOSTOMY ANASTOMOSIS OF SINGLE URETER TO BLADDER performed by Que Amrao MD at [facility] MEDICATIONS: No current facility-administered medications on file prior to encounter. Current Outpatient Prescriptions on File Prior to Encounter Medication Sig Dispense Refill ??? oxyCODONE (ROXICODONE) 5 mg Tablet Take 1 tablet by mouth every 4 hours as needed for Pain. 30 tablet 0 ??? calciTRIol (ROCALTROL) 0.5 mcg Capsule Take 1 capsule by mouth daily. 30 capsule 11 ??? tamsulosin (FLOMAX) 0.4 mg Capsule, Sust. Release 24 hr Take 1 capsule by mouth nightly. 30 capsule 11 ??? oxyCODONE (ROXICODONE) 5 mg Tablet Take 1 tablet by mouth every 6 hours as needed for Pain. 28 tablet 0 ??? aspirin 81 mg Tablet, Chewable Take 81 mg by mouth daily. 30 tablet 3 ??? Magnesium Gluconate 27 mg (500 mg) Tablet Take 6 tablets at breakfast and at dinner 360 tablet 3 ??? potassium phosphate, monobasic, (K-PHOS) 500 mg Tablet, Soluble Take 3 tabs at lunch time and 3tabs at bedtime 180 tablet 3 ??? tacrolimus (PROGRAF) 1 mg Capsule Take 1 capsule by mouth daily for 180 days. 60 capsule 2 ??? sulfamethoxazole-trimethoprim (BACTRIM;SEPTRA) 400-80 mg Tablet Take 1 tablet by mouth daily. 60 tablet 2 ??? tacrolimus (PROGRAF) 0.5 mg Capsule Take 1 capsule by mouth nightly for 180 days. 60 capsule 2 ??? levothyroxine (SYNTHROID) 100 mcg Tablet Take 100 mcg by mouth daily. ??? acetaminophen (TYLENOL) 500 mg Tablet Take 1,000 mg by mouth every 6 hours as needed for Pain. ??? omeprazole (PRILOSEC) 20 mg Capsule, Delayed Release(E.C.) Take 20 mg by mouth daily as needed. ??? mycophenolate (CELLCEPT) 250 mg Capsule Take 1 capsule by mouth 2 times daily. ALLERGIES: No Known Allergies FAMILY HISTORY: Denies history of bleeding or clotting disorders. Denies history of reactions to anesthesia. No family history on file. SOCIAL HISTORY: Tobacco: [ ] denies [ ] quit yrs ago [ ] xxx packs per day EtOH: [ ] denies [ ] occasional [ ] binge [ ] xxx drinks per day Illicit Drugs: [ ]denies Social History Social History ??? Marital status: Spouse name: N/A ??? Number of children: N/A ??? Years of education: N/A Occupational History ??? Not on file. Social History Main Topics ??? Smoking status: Former Smoker Types: Cigars Quit date: 01/02/2015 ??? Smokeless tobacco: Never Used Comment: cigars, one weekly ??? Alcohol use No ??? Drug use: No ??? Sexual activity: Not on file Other Topics Concern ??? Not on file Social History Narrative REVIEW OF SYSTEMS: 12 point review of system otherwise negative except as above PHYSICAL EXAM: Temp: [37.6 ??C (99.7 ??F)-39.2 ??C (102.6 ??F)] Heart Rate: -- Resp: [20-22] BP: (168-171)/(97-120) SpO2: [96 %-100 %] Heart Rate from SPO2: [62 bpm-131 bpm] I/O last 3 completed shifts: In: - Out: 75 [Urine:75] General: no apparent distress; interactive, but does not appear well HEENT: PERRL, mucous membranes tacky Chest: Tachycardic, no m/r/g Lungs- CTAB Abd/Pelvis: nontender; non distended; well-headed incision; no flank pain or CVA tenderness Extremities: warm, no edema Vascular: 2+dp/pt bilaterally LABS: No results found for this or any previous visit (from the past 24 hour(s)). IMAGING: None ASSESSMENT: This is a 65 y.o., male, who is 8 months from Kidney transplantation complicated by ureteral stricture and recurrent urosepsis who is now s/p kidney reimplantation/ ureteral reconstruction on 05/20, now presenting with possible urosepsis. Will get blood and urine cultures, and start vanc and zosyn.Plan to continue outpatient immunosuppressant mediations per primary team. PLAN: NEURO: Pain control with oxycodone 5mg q4h PRN Transplant: Cellcept 250 mg BID; tacrolimus CV: tachycardic--monitor vitals; fluid resusitation PULM: NTD GI: NPO : Urology consult; tamsulosin FEK: Calcitriol ID: Vanc and zosyn; Vanc trough in AM HEME: Blood cultures ENDO: synthroid 100mg q AM PROPHYLAXIS: Asprin DISPO: Floor status; if decompensates there is low threshold for increasing level of care Enrique Ferrell MD General Surgery PGY-1 Pager [phone] I reviewed all of the above findings and assessment of Dr. Ferrell edited the above note to reflect my assessment and examination and formulated the recommendations which accurately reflect mine. Willconsult Urology to determine post op effects and long range plan. documented in this encounter Miscellaneous Notes * Plan of Care - Sonia Collins RN - 06/25/2016 6:27 AM EST Problem: Patient Care Overview Goal: Plan of Care Review Outcome: Ongoing (Interventions Implemented as Appropriate) 06/25/16620 Coping/Psychosocial Plan Of Care Reviewed With patient Plan of Care Review Progress improving OUTCOME EVALUATION NOTE: OUTCOME SUMMARY: Patient resting in between care, reports positive pain control, ambulating independently, PLAN MOVING FORWARD: Discharge to home INDIVIDUALIZED FALL PREVENTION INTERVENTIONS: Patient-specific fall risk factors per assessment: [current deficits]: na Assistance [level of assistance required for transfers and ambulation]: independent Supervision [direct monitoring required during toileting and ADLs]: standby Surveillance [continuous indirect monitoring]: Purposeful rounding, Masimo Patient-specific fall prevention interventions for sensory deficits provided, if applicable: [X] Yes CPG GOAL OUTCOME EVALUATION: Goal: Individualization & Mutuality Outcome: Ongoing (Interventions Implemented as Appropriate) 06/25/16620 Individualization Patient Specific Goals pain control and sleep, discharge today Goal: Fall Prevention-Safe Patient Handling Outcome: Ongoing (Interventions Implemented as Appropriate) 06/25/16620 Musculoskeletal Interventions Muscle Strengthening mobility in bed promoted;activity/mobility promoted Restraint Interventions Safety Promotion/Fall Prevention nonskid shoes/slippers when out of bed Positioning Body Position foot of bed elevated Goal: Infection Control Outcome: Ongoing (Interventions Implemented as Appropriate) 06/25/16620 Safety Interventions Isolation Precautions standard precautions maintained Infection Prevention single patient room provided;personal protective equipment utilized Coping Strategies Supportive Measures active listening utilized;positive reinforcement provided;self-responsibility promoted;verbalization of feelings encouraged Goal: Discharge Needs Assessment Outcome: Ongoing (Interventions Implemented as Appropriate) 06/23/16 1804 06/25/16620 Discharge Needs Assessment Concerns To Be Addressed -- no discharge needs identified Readmission Within The Last 30 Days -- no previous admission in last 30 days Equipment Needed After Discharge -- none Discharge Facility/Level Of Care Needs -- independent living facility Discharge Disposition still a patient -- Current Health Anticipated Changes Related to Illness -- none Activity/Self Care Review of Systems Equipment Currently Used at Home -- none Living Environment Transportation Available -- family or friend will provide Goal: Interdisciplinary Rounds/Family Conf Outcome: Ongoing (Interventions Implemented as Appropriate) 06/25/16 0621 Interdisciplinary Rounds/Family Conf Participants nursing;physician;patient * Plan of Care - Ryan Fuchs RN - 06/24/2016 3:48 PM EST Problem: Patient Care Overview Goal: Plan of Care Review 06/24/16 1509 Coping/Psychosocial Plan Of Care Reviewed With patient OUTCOME EVALUATION NOTE: OUTCOME SUMMARY: VSS. Tolerating PO well. On Iv zosyn cont. Voiding qs with PVR checked q4 hrs minimal amount see I&O. No BM stated had 2 BM yesterday. Ambulating independently. Discharge pending unable to pick him up until tomorrow. MD notified. PLAN MOVING FORWARD: Cont to assess urinary status. Check for fever. Discharge planning INDIVIDUALIZED FALL PREVENTION INTERVENTIONS: Patient-specific fall risk factors per assessment: [current deficits]: weakness Assistance [level of assistance required for transfers and ambulation]: independent Supervision [direct monitoring required during toileting and ADLs]: Eyes on Surveillance [continuous indirect monitoring]: Skyla Hui Patient-specific fall prevention interventions for sensory deficits provided, if applicable: [X] No CPG GOAL OUTCOME EVALUATION: Goal: Individualization & Mutuality 06/23/16 0228 Mutuality/Individual Preferences What Anxieties, Fears or Concerns Do You Have About Your Health or Care? none Goal: Fall Prevention-Safe Patient Handling 06/23/16 1804 Musculoskeletal Interventions Muscle Strengthening activity/mobility promoted;mobility in bed promoted Goal: Infection Control 06/24/16 1509 Safety Interventions Isolation Precautions standard precautions maintained Goal: Discharge Needs Assessment 06/24/16 1509 Current Health Anticipated Changes Related to Illness none Goal: Interdisciplinary Rounds/Family Conf 06/24/16 1509 Interdisciplinary Rounds/Family Conf Participants housing case manager * Plan of Care - Brenda Escalante RN - 06/24/2016 6:07 AM EST Problem: Infection, Risk/Actual (Adult) Goal: Infection Prevention/Resolution Patient will demonstrate the desired outcomes by discharge/transition of care. Outcome: Ongoing (Interventions Implemented as Appropriate) 06/23/16 0248 Infection, Risk/Actual (Adult) Infection Prevention/Resolution making progress toward outcome OUTCOME EVALUATION NOTE: OUTCOME SUMMARY: Yash had a good night. He was able to sleep a little in between care PLAN MOVING FORWARD: Continue IV antibitocs INDIVIDUALIZED FALL PREVENTION INTERVENTIONS: Patient-specific fall risk factors per assessment: Pt has pain with mobility, and is taking narcotic pain medication. He is not impulsive or confused at this time Does not have a history of falls. Does not currently use any mobility equipment at home Assistance: independent Supervision: Eyes on, Surveillance: Purposeful rounding, Call robles in reach, Lighting adjusted for Task and safety, Environmental surveillance, area free from clutter and tripping hazards, Masimo in use, Non- skid slippers Patient-specific fall prevention interventions for sensory deficits provided, if applicable: No CPG GOAL OUTCOME EVALUATION: Problem: Kidney Transplant (Adult) Goal: Signs and Symptoms of Listed Potential Problems Will be Absent, Minimized or Managed (Kidney Transplant) Signs and symptoms of listed potential problems will be absent, minimized or managed by discharge/transition of care (reference Kidney Transplant (Adult) CPG). Outcome: Ongoing (Interventions Implemented as Appropriate) 06/23/162054 Kidney Transplant Problems Assessed (Kidney Transplant) all Problems Present (Kidney Transplant) infection Problem: Patient Care Overview Goal: Plan of Care Review Outcome: Ongoing (Interventions Implemented as Appropriate) 06/23/16180306/23/162054 Coping/Psychosocial Plan Of Care Reviewed With -- patient Plan of Care Review Progress progress toward functional goals is gradual -- Goal: Individualization & Mutuality Outcome: Ongoing (Interventions Implemented as Appropriate) 06/23/1622706/23/161803 Individualization Patient Specific Goals -- pain control, Mutuality/Individual Preferences What Anxieties, Fears or Concerns Do You Have About Your Health or Care? none -- What Questions Do You Have About Your Health or Care? none -- What Information Would Help Us Give You More Personalized Care? no -- Goal: Fall Prevention-Safe Patient Handling Outcome: Ongoing (Interventions Implemented as Appropriate) 06/23/16180306/23/162054 Musculoskeletal Interventions Muscle Strengthening activity/mobility promoted;mobility in bed promoted -- Restraint Interventions Safety Promotion/Fall Prevention -- fall prevention program maintained;nonskid shoes/slippers when out of bed Daily Care Interventions Self-Care Promotion independence encouraged -- Stephens Fall Risk History of Falling -- 0 Secondary Diagnosis -- 15 Ambulatory Aids -- 0 Intravenous Therapy/Heparin/Saline Lock -- 20 Gait/Transferring -- 0 Mental Status -- 0 Score -- 35 OTHER Stephens Fall Risk -- Med Positioning Body Position -- independent Goal: Infection Control Outcome: Ongoing (Interventions Implemented as Appropriate) 06/23/162054 Safety Interventions Isolation Precautions standard precautions maintained Infection Prevention rest/sleep promoted;environmental surveillance performed Coping Strategies Supportive Measures active listening utilized Goal: Discharge Needs Assessment Outcome: Ongoing (Interventions Implemented as Appropriate) 06/23/16 0248 06/23/161803 Discharge Needs Assessment Concerns To Be Addressed adjustment to diagnosis/illness concerns -- Readmission Within The Last 30 Days previous discharge plan unsuccessful -- Equipment Needed After Discharge none -- Current Discharge Risk chronically ill -- Discharge Disposition -- still a patient Current Health Anticipated Changes Related to Illness none -- Activity/Self Care Review of Systems Equipment Currently Used at Home none -- Living Environment Transportation Available family or friend will provide -- Goal: Interdisciplinary Rounds/Family Conf Outcome: Ongoing (Interventions Implemented as Appropriate) 06/23/161803 Interdisciplinary Rounds/Family Conf Participants nursing;physician;patient * Consult Note - Joseph Plascencia MD - 06/23/2016 10:49 PM EST INFECTIOUS DISEASE INITIAL CONSULT NOTE Reason for Consult: Sepsis, suspect UTI Consulting Service: Transplant surgery Consulting Attending: Tal Eagle MD Admission Date: 06/22/2016 History of Present Illness: 65 y.o. male with a history of HCV, DM, HTN and renal failure due to hypertensive nephropathy, who received a donor kidney transplantation in 09/2015, which has been complicated by a ureteral stricture that required a permanent percutaneous nephrostomy and internal stent and lead to multiple bouts of UTI with our without bacteremia. He finally underwent a complex reconstruction of his ureter on 05/20. His percutaneous nephrostomy was removed and did well at home, off antibiotics. On 06/18, his internal stent was removed. He received mary-procedural ciprofloxacin, but no further antibiotics. Two days later, he developed fevers and urinary incontinence. No dysuria. He went to the [facility] ED and was found to be septic, so he was transferred to [facility]. Here, he was febrile but hemodynamically stable. He has been treated with vancomycin and piperacillin/tazobactam and feels better today. No new complaints. ? Transplant related ID issues: On tacrolimus 0.5/1 mg, mycophenolate 250 mg bid On SMX/TMP SS for PJP px CMV D+/R+, no longer on valganciclovir BKV in blood undetectable 03/25, but detectable in urine 02/25 and 04/27 ? Past ID involvement in Mr. Bolden's care: - reported Group C bacteremia in kidney donor shortly before organ procurement and ill-defined tickbite, treated with 1 week of ceftriaxone right after transplantation in 09/2015 - enterococcal bacteremia and UTI, ampicillin sensitive, treated for 2 weeks with daptomycin to allow use of infusion suite, in 11/2015 - klebsiella oxytoca bacteremia and UTI treated with ciprofloxacin for 2 weeks in 12/2015 - CoNS bacteremia and UTI after stent placement, treated with 3 weeks of vancomycin in 02/2016 - coagulase-negative staphylococcus UTI and bacteremia 04/25 - klebsiella pneumoniae UTI 05/13 Review of Systems: Pertinent positives and negatives noted in HPI. Remainder of systems reviewed and found negative. Allergies: No Known Allergies Past Medical and Surgical History: Past Medical History Diagnosis Date ??? Back pain ??? Colon polyp ??? CVA (cerebral vascular accident) Per report but no deficits ??? ESRD (end stage renal disease) ??? GERD (gastroesophageal reflux disease) ??? HTN (hypertension) ??? Microhematuria ??? Type 2 diabetes mellitus Past Surgical History Procedure Laterality Date ??? Pro anastomosis, av, any site Left 05/09/2015 AV FISTULA CREATION, DIRECT HEMODIALYSIS, ANY SITE, EG ASHWINI FISTULA UPPER EXTREMITY performed by Que Amaro MD at [facility] OR ??? Pro transplantation of kidney N/A 09/16/2015 @KIDNEY TRANSPLANT, WITHOUT RECIPIENT NEPHRECTOMY performed by Franko Larkin MD at [facility] OR ??? Pro transplant, prep cadaver renal graft N/A 09/16/2015 @PREPARATION CADAVERIC RENAL ALLOGRAFT performed by Franko Larkin MD at [facility] OR ??? N/A 09/16/2015 ORGAN ACQUISITION RENAL, CADAVERIC performed by Franko Larkin MD at [facility] OR ??? Pro reimplant ureter, single ureter Left 05/20/2016 @URETERONEOCYSTOSTOMY ANASTOMOSIS OF SINGLE URETER TO BLADDER performed by Santosh Arredondo MD at [facility] OR ??? Pro reimplant ureter, single ureter N/A 05/20/2016 @URETERONEOCYSTOSTOMY ANASTOMOSIS OF SINGLE URETER TO BLADDER performed by Que Amaro MD at [facility] OR Prior To Admission Medications: Prescriptions Prior to Admission Medication Sig Dispense Refill Last Dose ??? oxyCODONE (ROXICODONE) 5 mg Tablet Take 1 tablet by mouth every 4 hours as needed for Pain. 30 tablet 0 ??? calciTRIol (ROCALTROL) 0.5 mcg Capsule Take 1 capsule by mouth daily. 30 capsule 11 Taking ??? tamsulosin (FLOMAX) 0.4 mg Capsule, Sust. Release 24 hr Take 1 capsule by mouth nightly. 30 capsule 11 Taking ??? oxyCODONE (ROXICODONE) 5 mg Tablet Take 1 tablet by mouth every 6 hours as needed for Pain. 28 tablet 0 Taking ??? aspirin 81 mg Tablet, Chewable Take 81 mg by mouth daily. 30 tablet 3 Taking ??? Magnesium Gluconate 27 mg (500 mg) Tablet Take 6 tablets at breakfast and at dinner 360 tablet 3 Taking ??? potassium phosphate, monobasic, (K-PHOS) 500 mg Tablet, Soluble Take 3 tabs at lunch time and 3tabs at bedtime 180 tablet 3 Taking ??? tacrolimus (PROGRAF) 1 mg Capsule Take 1 capsule by mouth daily for 180 days. 60 capsule 2 Taking ??? sulfamethoxazole-trimethoprim (BACTRIM;SEPTRA) 400-80 mg Tablet Take 1 tablet by mouth daily. 60 tablet 2 Taking ??? tacrolimus (PROGRAF) 0.5 mg Capsule Take 1 capsule by mouth nightly for 180 days. 60 capsule 2 Taking ??? levothyroxine (SYNTHROID) 100 mcg Tablet Take 100 mcg by mouth daily. Taking ??? acetaminophen (TYLENOL) 500 mg Tablet Take 1,000 mg by mouth every 6 hours as needed for Pain. Taking ??? omeprazole (PRILOSEC) 20 mg Capsule, Delayed Release(E.C.) Take 20 mg by mouth daily as needed.Taking ??? mycophenolate (CELLCEPT) 250 mg Capsule Take 1 capsule by mouth 2 times daily. Taking Inpatient Scheduled Medications: ??? tacrolimus 1 mg Oral Nightly ? ? potassium phosphate (monobasic) 500 mg Oral 4 Times Daily WC & HS ??? magnesium oxide 400 mg Oral BID ??? [START ON 06/24/2016] clopidogrel 75 mg Oral Daily ??? calciTRIol 0.5 mcg Oral Daily ??? levothyroxine 100 mcg Oral QAM ??? mycophenolate 250 mg Oral BID ??? tacrolimus 1 mg Oral Daily ??? tamsulosin 0.4 mg Oral Nightly ??? sodium chloride 0.9 % 5 mL Intravenous BID ??? piperacillin-tazobactam 3.375 g Intravenous Q8H Family History: No family history on file. Social History and Habits: Social History Social History ??? Marital status: Spouse name: N/A ??? Number of children: N/A ??? Years of education: N/A Occupational History ??? Not on file. Social History Main Topics ??? Smoking status: Former Smoker Types: Cigars Quit date: 01/02/2015 ??? Smokeless tobacco: Never Used Comment: cigars, one weekly ??? Alcohol use No ??? Drug use: No ??? Sexual activity: Not on file Other Topics Concern ??? Not on file Social History Narrative Physical Exam: Last value Range last 24 hrs Temperature Temp: 37.4 ??C (99.3 ??F) Temp: [36.9 ??C (98.4 ??F)-37.5 ??C (99.5 ??F)] Heart Rate Heart Rate: 131 Heart Rate: -- Blood Pressure BP: 144/64 BP: (125-169)/(64-82) Respiratory Rate Resp: 16 Resp: [16-20] SpO2 SpO2: 96 % SpO2: [88 %-98 %] General Not acutely ill HEENT No jaundice Heart Regular Lungs Clear Abdomen Soft, not tender; surgical scars healed Extremities No joint swelling, no edema Skin No rash Neuro Grossly intact Lines No central lines Laboratory: Recent Labs 06/22/16 2200 06/18/16 1044 WBC 13.8* 6.5 HGB 12.8* 14.2 HCT 36.5* 41.1 PLATELET 138* 199 Recent Labs 06/22/16 2016 06/18/16 1044 NA 132* 142 K 3.8 4.2 CL 94* 101 CO2 23 25 BUN 15 16 CREATININE 1.23 1.34 Recent Labs 06/22/16201506/18/16 1044 AST Not Perf 32 ALT 13 26 ALKPHOS 59 80 BILITOT 2.4* 1.1 BILIDIR 0.5* 0.3 Component Value Date/Time SPGRAVITYUA 1.011 06/22/20162011 PHUADIP 6.0 06/22/20162011 PROTEINUADIP 30 (A) 06/22/20162011 GLUCOSEU Negative 06/22/20162011 KETONESUA Negative 06/22/20162011 UROBILIUADIP Normal 06/22/20162011 BLOODUADIP Small (A) 06/22/20162011 NITRATEUA Negative 06/22/20162011 LEUKOESTERUA Large (A) 06/22/20162011 WBCUA 42 (H) 06/22/20162011 BILIRUBINUA Negative 06/22/20162011 Microbiology: Blood Cultures: NGTD Urine Cultures: >100 k GNR at [facility] Radiology/Studies/Procedures: 05/20 Op Note Complex/hard/aida dissection of bladder/ureter from graft Graft ureter completely stuck in pelvis, dissected up into the renal pelvis. Flexible intraop ureteroscopy to confirm location Boari flap performed and anastomosed to proximal graft ureter. Tension free. Short JJ stent placed [place] left ureter divided and dissected Assessment: Cody Bolden is a 65 y.o. male with a history of HCV, DM, HTN and renal failure due to hypertensive nephropathy, who received a donor kidney transplantation in 09/2015, which has been complicated by a ureteral stricture that required a permanent percutaneous nephrostomy and internal stent and lead to multiple bouts of UTI with our without bacteremia. He finally underwent a complex reconstruction of his ureter on 05/20. His percutaneous nephrostomy was removed and he did well at home, off antibiotics. On 06/18, his internal stent was removed. He received mary-procedural ciprofloxacin, but no further antibiotics. He now presents with sepsis, likely due to a UTI, with > 100k GNR in his urine culture at [facility]. Clinically improved on piperacillin/tazobactam, with negative cultures here. Most likely, his infection is related to the stent removal. We are awaiting final speciation and susceptibilities from the urine and [facility]. In the meantime, we recommend to stop vancomycin and to continue piperacillin/tazobactam Recommendations: - stop vancomycin - continue piperacillin/tazobactam - follow up cultures from [facility] This patient was seen and discussed with ID attending Dr. Plascencia. Recommendations discussed with primary treating team. ID consult service will continue to follow patient. Do not hesitate to page us at [phone] with any further questions or concerns. Franko Kim MD Infectious Disease Fellow Pager [phone] ID Attending Recurrent UTI previously ascribed to now-repaired stricture, now with post- procedural UTI that I hope is iatrogenic complication and not a sign of ongoing risk. Once we have ID/susceptibilities of OSH organism we can structure a regimen for cure. Once this acute issue is handled, we can resume evaluation and management planning in outpatient setting for chronic active hepatitis C. I have confirmed the above findings independently by talking with the patient, examination the patient, and perusing the relevant laboratory, microbiological, pathological, radiological and other data. * Plan of Care - Sonia Collins RN - 06/23/2016 6:10 PM EST Problem: Patient Care Overview Goal: Plan of Care Review Outcome: Ongoing (Interventions Implemented as Appropriate) 06/23/16 1804 Coping/Psychosocial Plan Of Care Reviewed With patient Plan of Care Review Progress progress toward functional goals is gradual OUTCOME EVALUATION NOTE: OUTCOME SUMMARY: Patient reports positive pain control, ambulating independently, voiding, tolerating PO, per patient had a bowel movement, PLAN MOVING FORWARD: microbiology results pending, increase ambulation and PO intake INDIVIDUALIZED FALL PREVENTION INTERVENTIONS: Patient-specific fall risk factors per assessment: [current deficits]: na Assistance [level of assistance required for transfers and ambulation]: independent Supervision [direct monitoring required during toileting and ADLs]: standby Surveillance [continuous indirect monitoring]: Purposeful rounding, Masimo Patient-specific fall prevention interventions for sensory deficits provided, if applicable: [X] No CPG GOAL OUTCOME EVALUATION: Goal: Individualization & Mutuality Outcome: Ongoing (Interventions Implemented as Appropriate) 06/23/161803 Individualization Patient Specific Goals pain control, Goal: Fall Prevention-Safe Patient Handling Outcome: Ongoing (Interventions Implemented as Appropriate) 06/23/16 0915 06/23/161803 Musculoskeletal Interventions Muscle Strengthening -- activity/mobility promoted;mobility in bed promoted Restraint Interventions Safety Promotion/Fall Prevention -- nonskid shoes/slippers when out of bed Daily Care Interventions Self-Care Promotion -- independence encouraged Positioning Body Position independent -- Goal: Infection Control Outcome: Ongoing (Interventions Implemented as Appropriate) 06/23/161803 Safety Interventions Isolation Precautions standard precautions maintained Infection Prevention rest/sleep promoted Coping Strategies Supportive Measures active listening utilized;positive reinforcement provided;self-care encouraged Goal: Discharge Needs Assessment Outcome: Ongoing (Interventions Implemented as Appropriate) 06/23/16 0248 06/23/161803 Discharge Needs Assessment Concerns To Be Addressed adjustment to diagnosis/illness concerns -- Equipment Needed After Discharge none -- Current Discharge Risk chronically ill -- Discharge Disposition -- still a patient Current Health Anticipated Changes Related to Illness none -- Activity/Self Care Review of Systems Equipment Currently Used at Home none -- Living Environment Transportation Available family or friend will provide -- Goal: Interdisciplinary Rounds/Family Conf Outcome: Ongoing (Interventions Implemented as Appropriate) 06/23/161803 Interdisciplinary Rounds/Family Conf Participants nursing;physician;patient * Initial Assessments - Aarti Appiah RN - 06/23/2016 9:31 AM EST Office of Care Management Initial Assessment Aarti Appiah RN reviewed record and discussed patient with Care Team. Source of Information: Chart review, MD report, & patient interview. Introduced self/reviewed role; services accepted. Reason for Hospitalization: 65 y/o man who was admitted on 06/22/16 with UTI. Past Medical History Diagnosis Date ??? Back pain ??? Colon polyp ??? CVA (cerebral vascular accident) Per report but no deficits ??? ESRD (end stage renal disease) ??? GERD (gastroesophageal reflux disease) ??? HTN (hypertension) ??? Microhematuria ??? Type 2 diabetes mellitus Hospitalizations Within the Past 30 Days: Patient has significant medical history including: admission 04/25/16- 05/28/16. Anticipated Length Of Stay (If known): 3-5 days Current Decision-Making Capacity: Patient alert, oriented, & able to make own choices. Advance Care Planning: Not in chart Current Coping/Education/Information Needs: Patient verbalized understanding of treatment to date. Current Functional Ability: Independent Functional Status Prior to Admission: Independent Home Environment: 4 steps into single floor living space. Social & Family Supports/Community Resources: Patient lives with & has family nearby to assist as needed. Behavioral Health History: Denies any Substance Use/Abuse: No Other Pertinent/Service Specific Information: Patient states he has been attending HD in [place], [place], as well as, attending infusion suite. Health/Prescription Coverage: Primary Insurance: Medicare A+B Secondary Insurance: BCBS Prescription Coverage: BCBS Preferred Pharmacy: [facility] in [place], [place] Other: [facility] Primary Care Provider: Urbano Denis DO [phone] Patient/Caregiver Goals of Treatment: Resolve infection for discharge home. Potential Needs for Transition of Care: Rehab/SNF: No Home Health: Possibly DME: No Dialysis: none at this time. Community Resources: No Transportation: Personal car with family Other: N/A Anticipated Barriers to Discharge/Special Considerations: Patient states he has had hiccups for months. Plan: CM will maintain contact with patient & providers to coordinate any services needed for discharge. Plan for discharge home with antibiotics. Aarti Appiah RN Pager: [phone] * Consult Note - Yeimi Elam - 06/23/2016 6:21 AM EST UROLOGY CONSULT NOTE Reason for Consultation: urosepsis s/p Boari flap to transplant kidney for ureteral stricture History of Present Illness: Cody Bolden is a 65 yo M who is well known to the Transplant and Urology services. He has a hx of DDKT in September 2015 that has been complicated by multiple admissions for UTI and urosepsis. He had a PCN placed in December 2015 and underwent serial ureteroplasty in IR that was ultimately unsuccessful. On 05/20/2016, he underwent Boari flap to transplant renal pelvis and ligation of left bad river band ureter in joint case with Urology and Transplant. His post-op course was uncomplicated and he was discharged 05/28 on antibiotic course. In follow up in Urology clinic, he had cystogram 06/03/2016 that showed no leak and his moran was removed. 06/09/2016 had transplant PCN removed in IR under fluoroscopy. On 06/18/2016, he had his ureteral stent removed in the Urology clinic uneventfully. He was transferred to [facility] last night after being admitted at OSH for past couple days with fever. Also reporting increased difficulty urinating as well. Since being here, has reportedly been having minimal PVRs after voids. No flank pain b/l, some RLQ pain, but none on the left. No dysuria, no hematuria. Past Medical/Surgical History: Past Medical History Diagnosis Date ??? Back pain ??? Colon polyp ??? CVA (cerebral vascular accident) Per report but no deficits ??? ESRD (end stage renal disease) ??? GERD (gastroesophageal reflux disease) ??? HTN (hypertension) ??? Microhematuria ??? Type 2 diabetes mellitus Patient Active Problem List Diagnosis Code ??? DM type 2 (diabetes mellitus, type 2) E11.9 ??? Hypertension I10 ??? DJD (degenerative joint disease) M19.90 ??? Hematuria R31.9 ??? ESRD (end stage renal disease) N18.6 ??? HCV (hepatitis C virus) B19.20 ??? CGN (chronic glomerulonephritis) N03.9 ??? Chronic kidney disease, stage V N18.5 ??? Essential hypertension I10 ??? Hepatitis C virus infection B19.20 ??? Renal failure N19 ??? Kidney transplant infection T86.13 ??? RAY (acute kidney injury) N17.9 ??? UTI (urinary tract infection) N39.0 ??? Fever R50.9 ??? Bacteremia due to coagulase-negative Staphylococcus R78.81 ??? Ureteral stricture N13.5 ??? Dehydration E86.0 ??? Kidney replaced by transplant Z94.0 ??? Encounter for long-term (current) use of other medications Z79.899 ??? Aftercare following organ transplant Z48.298 ??? Sepsis A41.9 Past Surgical History Procedure Laterality Date ??? Pro anastomosis, av, any site Left 05/09/2015 AV FISTULA CREATION, DIRECT HEMODIALYSIS, ANY SITE, EG ASHWINI FISTULA UPPER EXTREMITY performed by Que Amaro MD at [facility] MAIN OR ??? Pro transplantation of kidney N/A 09/16/2015 @KIDNEY TRANSPLANT, WITHOUT RECIPIENT NEPHRECTOMY performed by Franko Larkin MD at [facility] MAIN OR ??? Pro transplant, prep cadaver renal graft N/A 09/16/2015 @PREPARATION CADAVERIC RENAL ALLOGRAFT performed by Franko Larkin MD at [facility] MAIN OR ??? N/A 09/16/2015 ORGAN ACQUISITION RENAL, CADAVERIC performed by Franko Larkni MD at [facility] MAIN OR ??? Pro reimplant ureter, single ureter Left 05/20/2016 @URETERONEOCYSTOSTOMY ANASTOMOSIS OF SINGLE URETER TO BLADDER performed by Santosh Arredondo MD at [facility] MAIN OR ??? Pro reimplant ureter, single ureter N/A 05/20/2016 @URETERONEOCYSTOSTOMY ANASTOMOSIS OF SINGLE URETER TO BLADDER performed by Que Amaro MD at [facility] OR Social History: Social History Social History ??? Marital status: Spouse name: N/A ??? Number of children: N/A ??? Years of education: N/A Social History Main Topics ??? Smoking status: Former Smoker Types: Cigars Quit date: 01/02/2015 ??? Smokeless tobacco: Never Used Comment: cigars, one weekly ??? Alcohol use No ??? Drug use: No ??? Sexual activity: Not on file Other Topics Concern ??? Not on file Social History Narrative Family History: No family history on file. Review of Systems: Review of Systems Constitution: Positive for chills and fever. Cardiovascular: Negative for chest pain. Respiratory: Negative for cough and shortness of breath. Gastrointestinal: Positive for abdominal pain. Negative for constipation, diarrhea, nausea and vomiting. Genitourinary: Positive for incomplete emptying. Negative for bladder incontinence, dysuria, flank pain, frequency and hematuria. Medications: No current facility-administered medications on file prior to encounter. Current Outpatient Prescriptions on File Prior to Encounter Medication Sig Dispense Refill ??? oxyCODONE (ROXICODONE) 5 mg Tablet Take 1 tablet by mouth every 4 hours as needed for Pain. 30 tablet 0 ??? calciTRIol (ROCALTROL) 0.5 mcg Capsule Take 1 capsule by mouth daily. 30 capsule 11 ??? tamsulosin (FLOMAX) 0.4 mg Capsule, Sust. Release 24 hr Take 1 capsule by mouth nightly. 30 capsule 11 ??? oxyCODONE (ROXICODONE) 5 mg Tablet Take 1 tablet by mouth every 6 hours as needed for Pain. 28 tablet 0 ??? aspirin 81 mg Tablet, Chewable Take 81 mg by mouth daily. 30 tablet 3 ??? Magnesium Gluconate 27 mg (500 mg) Tablet Take 6 tablets at breakfast and at dinner 360 tablet 3 ??? potassium phosphate, monobasic, (K-PHOS) 500 mg Tablet, Soluble Take 3 tabs at lunch time and 3tabs at bedtime 180 tablet 3 ??? tacrolimus (PROGRAF) 1 mg Capsule Take 1 capsule by mouth daily for 180 days. 60 capsule 2 ??? sulfamethoxazole-trimethoprim (BACTRIM;SEPTRA) 400-80 mg Tablet Take 1 tablet by mouth daily. 60 tablet 2 ??? tacrolimus (PROGRAF) 0.5 mg Capsule Take 1 capsule by mouth nightly for 180 days. 60 capsule 2 ??? levothyroxine (SYNTHROID) 100 mcg Tablet Take 100 mcg by mouth daily. ??? acetaminophen (TYLENOL) 500 mg Tablet Take 1,000 mg by mouth every 6 hours as needed for Pain. ??? omeprazole (PRILOSEC) 20 mg Capsule, Delayed Release(E.C.) Take 20 mg by mouth daily as needed. ??? mycophenolate (CELLCEPT) 250 mg Capsule Take 1 capsule by mouth 2 times daily. Physical Exam: Temp: [36.9 ??C (98.4 ??F)-39.2 ??C (102.6 ??F)] Heart Rate: [131] Resp: [16-22] BP: (125-171)/(55-120) SpO2: [94 %-100 %] Heart Rate from SPO2: [62 bpm-131 bpm] General: No acute distress. Card: RRR Lungs: CTA bilaterally Abd: well healed midline incision, soft, ND, minimal RLQ tenderness to palpation, none on the left,no CVA tenderness b/l : normal phallus, orthotopic meatus Labs: Recent Labs 06/22/16 2200 06/22/162015 WBC 13.8* -- HGB 12.8* -- PLATELET 138* -- NA -- 132* K -- 3.8 CL -- 94* CO2 -- 23 BUN -- 15 CREATININE -- 1.23 CALCIUM -- 9.0 INR 1.1 -- PTT 36* -- Component Value Date/Time SPGRAVITYUA 1.011 06/22/20162011 PHUADIP 6.0 06/22/20162011 PROTEINUADIP 30 (A) 06/22/20162011 GLUCOSEU Negative 06/22/20162011 KETONESUA Negative 06/22/20162011 UROBILIUADIP Normal 06/22/20162011 BLOODUADIP Small (A) 06/22/20162011 NITRATEUA Negative 06/22/20162011 LEUKOESTERUA Large (A) 06/22/20162011 WBCUA 42 (H) 06/22/20162011 BILIRUBINUA Negative 06/22/20162011 Microbiology: 06/22 UCx - pending 06/22 BCx - pending Assessment: Cody Bolden is a 65 y.o. with DDKT and recent Boari flap reconstruction for transplant ureterstricture done for recurrent urosepsis episodes and unsuccessful ureteroplasty attempts. Now presenting with fevers/chills, positive UA and subjective difficulty with urinating, concerning for recurrent urosepsis given recent stent removal/manipulation. Recommendations: -can consider renal ultrasound to r/o recurrent hydronephrosis, however we have very low suspicion has were able to advance flexible cystoscope up to renal pelvis alongside stent prior to removal -check PVR after each void to ensure emptying, may need to consider moran if retaining large volumes -f/u cultures, continue broad spectrum antibiotics -will likely need further suppressive antibiotic course on discharge Patient and seen and discussed with Dr. Arredondo. We will continue to follow. YEIMI ELAM MD Associated attestation - Santosh Arredondo MD - 06/23/2016 5:32 PM EST Attending Addendum I have seen the patient and reviewed the history and examination. I agree with the details as written. The assessment and plan were formulated in discussion with me and I agree with them as documented. I would add the following: Admitted with UTI Creatinine stable Cultures pending Santosh Arredondo * Plan of Care - Brenda Escalante RN - 06/23/2016 2:58 AM EST Problem: Infection, Risk/Actual (Adult) Goal: Identify Related Risk Factors and Signs and Symptoms Related risk factors and signs and symptoms are identified upon initiation of Human Response Clinical Practice Guideline (CPG) Outcome: Outcome (s) achieved Date Met: 06/23/16 06/23/16247 Infection, Risk/Actual Infection, Risk/Actual: Related Risk Factors age extremes;chronic illness/condition;exposure to microbes;immunosuppressed;medication effects;surgery/procedure;sleep disturbance Signs and Symptoms (Infection, Risk/Actual) body temperature changes;chills;heart rate increase;labvalue changes;respiratory rate increase;weakness OUTCOME EVALUATION NOTE: OUTCOME SUMMARY: Yash was treated per the sepsis bundle at the start of the shift, IV fluid bolus given, blood drawn and sent to the lab per protocol. Temp trending down see Doc Flow sheets Medicated X1 with PRN pain mediation with good effect see MAR PLAN MOVING FORWARD: Continue IV antibiotics and fluid management INDIVIDUALIZED FALL PREVENTION INTERVENTIONS: Patient-specific fall risk factors per assessment: Pt has pain with mobility, and is taking narcotic pain medication. He is not impulsive or confused at this time Does not have a history of falls. Does not currently use any mobility equipment at home Assistance: stand by assist Supervision: Eyes on, Arms reach Surveillance: Purposeful rounding, Call robles in reach, Lighting adjusted for Task and safety, Environmental surveillance, area free from clutter and tripping hazards, Masimo in use, Non- skid slippers Patient-specific fall prevention interventions for sensory deficits provided, if applicable: No CPG GOAL OUTCOME EVALUATION: Goal: Infection Prevention/Resolution Patient will demonstrate the desired outcomes by discharge/transition of care. Outcome: Ongoing (Interventions Implemented as Appropriate) 06/23/16247 Infection, Risk/Actual (Adult) Infection Prevention/Resolution making progress toward outcome Problem: Kidney Transplant (Adult) Goal: Signs and Symptoms of Listed Potential Problems Will be Absent, Minimized or Managed (Kidney Transplant) Signs and symptoms of listed potential problems will be absent, minimized or managed by discharge/transition of care (reference Kidney Transplant (Adult) CPG). Outcome: Ongoing (Interventions Implemented as Appropriate) 06/23/16247 Kidney Transplant Problems Assessed (Kidney Transplant) all Problems Present (Kidney Transplant) infection Problem: Patient Care Overview Goal: Plan of Care Review Outcome: Ongoing (Interventions Implemented as Appropriate) 06/23/16247 Coping/Psychosocial Plan Of Care Reviewed With patient Plan of Care Review Progress improving Goal: Fall Prevention-Safe Patient Handling Outcome: Ongoing (Interventions Implemented as Appropriate) 06/22/162116 Stephens Fall Risk History of Falling 0 Secondary Diagnosis 15 Ambulatory Aids 0 Intravenous Therapy/Heparin/Saline Lock 20 Gait/Transferring 0 Mental Status 0 Score 35 OTHER Stephens Fall Risk Med Restraint Interventions Safety Promotion/Fall Prevention activity supervised;nonskid shoes/slippers when out of bed;fall prevention program maintained Positioning Body Position independent Goal: Infection Control Outcome: Ongoing (Interventions Implemented as Appropriate) 06/22/162116 Safety Interventions Isolation Precautions standard precautions maintained Infection Prevention environmental surveillance performed;rest/sleep promoted Coping Strategies Supportive Measures active listening utilized Goal: Discharge Needs Assessment Outcome: Ongoing (Interventions Implemented as Appropriate) 06/23/16247 Discharge Needs Assessment Concerns To Be Addressed adjustment to diagnosis/illness concerns Readmission Within The Last 30 Days previous discharge plan unsuccessful Equipment Needed After Discharge none Current Discharge Risk chronically ill Current Health Anticipated Changes Related to Illness none Activity/Self Care Review of Systems Equipment Currently Used at Home none Living Environment Transportation Available family or friend will provide documented in this encounter Plan of Treatment Upcoming Encounters Date Type Department Care Team (Late st Contact Info) Description 04/15/2024 10:00 AM EDT Hospital Encounter Non-Invasive [place]iology [place] [id number] Arrived documented as of this encounter Procedures Procedure Name Priority Date/Time Associated Diagnosis Comments TACROLIMUS LEVEL Routine 06/25/2016 7:57 AM EST HEMOGRAM Routine 06/24/2016 6:24 AM EST DIFFERENTIAL, AUTOMATED Routine 06/24/2016 6:24 AM EST CBC (WITH DIFF) Routine 06/24/2016 6:24 AM EST BASIC METABOLIC PANEL Routine 06/24/2016 6:24 AM EST TACROLIMUS LEVEL Routine 06/23/2016 8:04 AM EST SCAN, PERIPHERAL BLOOD Routine 6 10:00 PM EST HEMOGRAM Routine 06/22/2016 10:00 PM EST DIFFERENTIAL, AUTOMATED Routine 06/22/2016 10:00 PM EST APTT Routine 06/22/2016 10:00 PM EST PROTHROMBIN TIME Routine 06/22/2016 10:0 0 PM EST CBC (WITH DIFF) Routine 06/22/2016 10:00 PM EST LACTATE, WHOLE BLOOD Routine 06/22/2016 8:51 PM EST EKG 12-LEAD Routine 06/22/2016 8:24 PM EST ESRD (end stage renal disease) BLOOD CULTURE STAT 06/22/2016 8:16 PM EST BLOOD CULTURE STAT 06/22/2016 8:16 PM EST COMPREHENSIVE METABOLIC PANEL STAT 06/22/2016 8:16 PM EST URINE HOLD STAT 06/22/2016 8:12 PM EST URINALYSIS WITH REFLEX CULTURE STAT 06/22/2016 8:12 PM EST URINE CULTURE STAT 06/22/2016 8:12 PM EST documented in this encounter Results * Tacrolimus level (06/25/2016 7:57 AM EST) Tacrolimus 6.1 ng/mL [facility] Comment: Trough therapeutic: ??5-15 ng/mL Performed by ultra-performance liquid chromatography tandem mass spectrometry (UPLCMS/MS). Blood specimen (specimen) 06/25/2016 7:57 AM EST 06/25/2016 9:15 AM EST Narrative Resulting Agency Comment Spec In Lab Tal Eagle MD CHEMISTRY ORDERAB LES Performing Organization Address City/[facility]/ZIP Co de Phone Number [facility] [place] [address] * Differential, Automated (06/24/2016 6:24 AM EST) Neutrophil % 68.7 % [facility] Neutrophil Absolute 5.68 1.70 - 6.10 x10(3)/[facility] Lymph % 16.3 % [facility] Lymphocytes Abs 1.4 0.9 - 3.2 x10(3)/[facility] Monocyte % 10.7 % [facility] Monocyte Abs 0.9 0.3 - 0.9 x10(3)/[facility] Eos % 3.5 % [facility] Eosinophils Abs 0.3 0.0 - 0.4 x10(3)/[facility] Basophil % 0.6 % [facility] Baso Absolute 0.0 0.0 - 0.1 x10(3)/[facility] Immature Gran % 0.20 % [facility] Comment: Immature granulocytes(IG's)percentage and absolute count will include metamyelocytes, myelocytes, and promyelocytes. Blood smears from CBCs yielding IG's will be scanned manually for concordance. If this scan disagrees with the automated IG or if promyelocytes are noted, a manual differential will be performed. Immature Gran Absolute 0.02 0.00 - 0.04 x10(3)/[facility] Blood specimen (specimen) 06/24/2016 6:24 AM EST 06/24/2016 6:37 AM EST Narrative Resulting Agency Comment Spec In Lab Tal Eagle MD HEMATOLOGY ORDERA BLES [facility] [place] [place] [address] * (ABNORMAL) Hemogram (06/24/2016 6:24 AM EST) [facility] White Blood Cell 8.3 4.0 - 9.5 x10(3)/mc L [facility] Red Blood Cell 3.95(L) 4.58 - 5.54 x10(6)/mc L [facility] Hemoglobin 12.6(L) 13.7 - 16.5 gm/dL [facility] Hematocrit 36.0(L) 40.5 - 48.5 % [facility] Mean Cell Volume 91.1 82.9 - 93.1 fL [facility] Mean Cell Hemoglobin 31.9 27.5 - 32.1 pg [facility] Mean Cell Hemoglobin Concentration 35.0 32.0 - 35.7 gm/dL [facility] Platelet 139(L) 145 - 357 x10(3)/[facility] RDW Standard Deviation 41.6 36.0 - 45.0 [facility]ORY RDW coefficient of variation 12.5 11.4 - 13.8 % [facility] Mean Platelet Volume 9.7 7.6 - 12.9 [facility] NRBC% auto 0.0 % [facility] NRBC Absolute 0.000 0.000 - 0.000 x10(3)/[facility] Blood specimen (specimen) 06/24/2016 6:24 AM EST 06/24/2016 6:37 AM EST Narrative Resulting Agency Comment Spec In Lab Tal Eagle MD HEMATOLOGY ORDERA BLES [facility] [place] [place] [address] * (ABNORMAL) Basic Metabolic Panel (non-fasting) (06/24/2016 6:24 AM EST) [facility] Glucose 150 65 - 199 mg/dL [facility] Comment:Diabetes: >=200 mg/d L plus symptoms Blood Urea Nitrogen 16 10 - 20 mg/dL [facility] Creatinine 1.12 0.80 - 1.50 mg/dL [facility] Comment: Please note that the pediatric reference intervals supplied above were not validated at [facility]. Results from pediatric patients should be interpreted in conjunction to the patient's age, height and muscle mass. Sodium 137 135 - 145 mmol/L [facility] Potassium 3.5 3.5 - 5.0 mmol/L [facility] Comment: Please note: ??Patients with WBC >100,000 may have falsely elevated Potassium levels. ??For accurate Potassium quantification in these patients send serum separator tube (gold top) for subsequent determinations. ??Contact the Clinical Chemistry Laboratory if there are any questions. Chloride 95(L) 98 - 107 mmol/L [facility] Carbon Dioxide 26 22 - 31 mmol/L [facility] Anion Gap 16(H) 5 - 15 mmol/L [facility] Calcium 8.9 8.5 - 10.5 mg/dL [facility] Est Glomerular Filtration Rate >60 >=60 [facility] Comment: This estimated GFR (eGFR) [...] the following links into your internet browser. [email or web address] Blood specimen (specimen) 06/24/2016 6:24 AM EST 06/24/2016 6:37 AM EST Narrative Resulting Agency Comment Spec In Lab Tal Eagle MD CHEMISTRY ORDERAB LES [facility] [place] [address] * Tacrolimus level (06/23/2016 8:04 AM EST) Pathologist [facility] Tacrolimus <3.0 ng/mL [facility] Comment: Trough therapeutic: ??5-15 ng/mL Performed by ultra-performance liquid chromatography tandem mass spectrometry (UPLCMS/MS). Blood specimen (specimen) 06/23/2016 8:04 AM EST 06/23/2016 11:47 AM EST Narrative Resulting Agency Comment Spec In Lab Tal Eagle MD CHEMISTRY ORDERAB LES Performing Organization Address [facility]/ZIP Co de Phone Number [facility] [place] [address] * Scan, Peripheral Blood (06/22/2016 10:00 PM EST) [facility] Plat estimate Decreased [facility] RBC Morphology Normal [facility] Dohle Bodies Present [facility] Plat, Giant Less than 1 /HPF [facility] Blood specimen (specimen) 06/22/2016 10:00 PM EST 06/22/2016 10:07 PM EST Narrative Resulting Agency Comment Spec In Lab Tal Eagle MD HEMATOLOGY ORDERA BLES Performing Organization Address City/[facility]/ZIP Co de Phone Number [facility] [place] [address] * (ABNORMAL) Differential, Automated (06/22/2016 10:00 PM EST) [facility] Neutrophil % 79.6 % [facility] Neutrophil Absolute 11.01(H) 1.70 - 6.10 x10(3)/mc L [facility] Lymph % 7.2 % [facility] Lymphocytes Abs 1.0 0.9 - 3.2 x10(3)/mc L [facility] Monocyte % 12.4 % [facility] Monocyte Abs 1.7(H) 0.3 - 0.9 x10(3)/mc L [facility] Eos % 0.3 % [facility] Eosinophils Abs 0.0 0.0 - 0.4 x10(3)/[facility] Basophil % 0.2 % [facility] Baso Absolute 0.0 0.0 - 0.1 x10(3)/[facility] Immature Gran % 0.30 % [facility] Comment: Immature granulocytes(IG's)percentage and absolute count will include metamyelocytes, myelocytes, and promyelocytes. Blood smears from CBCs yielding IG's will be scanned manually for concordance. If this scan disagrees with the automated IG or if promyelocytes are noted, a manual differential will be performed. Immature Gran Absolute 0.04 0.00 - 0.04 x10(3)/[facility] Blood specimen (specimen) 06/22/2016 10:00 PM EST 06/22/2016 10:07 PM EST Narrative Resulting Agency Comment Spec In Lab Tal Eagle MD HEMATOLOGY ORDERA BLES [facility] [place] [address] * (ABNORMAL) Hemogram (06/22/2016 10:00 PM EST) White Blood Cell 13.8(H) 4.0 - 9.5 x10(3)/ L [facility] Red Blood Cell 4.03(L) 4.58 - 5.54 x10(6)/mc L [facility] Hemoglobin 12.8(L) 13.7 - 16.5 gm/dL [facility] Hematocrit 36.5(L) 40.5 - 48.5 % [facility] Mean Cell Volume 90.6 82.9 - 93.1 fL [facility] Mean Cell Hemoglobin 31.8 27.5 - 32.1 pg [facility] Mean Cell Hemoglobin Concentration 35.1 32.0 - 35.7 gm/dL [facility] Platelet 138(L) 145 - 357 x10(3)/mc L [facility] RDW Standard Deviation 41.4 36.0 - 45.0 fL [facility] RDW coefficient of variation 12.4 11.4 - 13.8 % [facility] Mean Platelet Volume 9.8 7.6 - 12.9 fL [facility] NRBC% auto 0.0 % [facility] NRBC Absolute 0.000 0.000 - 0.000 x10(3)/mc L [facility] Blood specimen (specimen) 06/22/2016 10:00 PM EST 06/22/2016 10:07 PM EST Narrative Resulting Agency Comment Spec In Lab Tal Eagle MD HEMATOLOGY ORDERA BLES Performing Organization Address [facility]/RUST de Phone Number [facility] [place] [place] [address] * (ABNORMAL) APTT (06/22/2016 10:00 PM EST) Partial Thromboplastin Time 36(H) 25 - 35 sec [facility] Comment: The recommended therapeutic range for full dose, unfractionated heparin at [facility] is 80 ? 114 seconds. The use of the anti-Xa (heparin) level rather than the PTT is recommended for monitoring anticoagulation intensity in critically ill patients receiving unfractionated heparin by continuous IV infusion. Blood specimen (specimen) 06/22/2016 10:00 PM EST 06/22/2016 10:07 PM EST Narrative Resulting Agency Comment Spec In Lab Tal Eagle MD HEMATOLOGY ORDERA BLES Performing Organization Address City/[facility] Co de Phone Number [facility] [place] [address] * Prothrombin Time (06/22/2016 10:00 PM EST) Prothrombin Time 15.0 12.0 - 15.0 sec [facility] Comment: An INR <2.0 [...] may be appropriate depending on clinical circumstances. International Normalization Ratio 1.1 0.9 - 1.1 [facility] Blood specimen (specimen) 06/22/2016 10:00 PM EST 06/22/2016 10:07 PM EST Narrative Resulting Agency Comment Spec In Lab Tal Eagle MD HEMATOLOGY ORDERA BLES Performing Organization Address [facility] Co de Phone Number [facility] [place] [address] * Lactate, whole blood, send to lab (06/22/2016 8:51 PM EST) Pathologist [facility] Lactate WB 0.9 0.5 - 2.2 mmol/L [facility] Blood specimen (specimen) 06/22/2016 8:51 PM EST 06/22/2016 8:59 PM EST Narrative Resulting Agency Comment Spec In Lab Tal Eagle MD CHEMISTRY ORDERAB LES Performing Organization Address [facility] Co de Phone Number [facility] [place] [address] * EKG 12 Lead (06/22/2016 8:24 PM EST) Ventricular rate 85 BPM MUSE SYSTEM Atrial Rate 85 BPM MUSE SYSTEM P-R Interval 162 ms MUSE SYSTEM QRS Duration 96 ms MUSE SYSTEM Q-T Interval 370 ms MUSE SYSTEM QTC Calculated (Bezet) 440 ms MUSE SYSTEM Calculated P [place] 1 degrees MUSE SYSTEM Calculated R [place] -54 degrees MUSE SYSTEM Calculated T [place] -5 degrees MUSE SYSTEM INTERPRETATION Sinus rhythm with Premature atrial complexes Left anterior fascicular block Abnormal ECG When compared with ECG of 23-APR-2016 11:35, No significant change was found Confirmed by MD PAT, COLIN ([id number]) on 06/23/2016 3:19:39 PM MUSE SYSTEM 06/22/2016 8:24 PM EST 06/23/2016 3:19 PM EST Tal Eagle MD ECG ORDERABLES MUSE SYSTEM * (ABNORMAL) Comprehensive metabolic panel (non-fasting) (06/22/2016 8:16 PM EST) Glucose 137 65 - 199 mg/dL [facility] Comment:Diabetes: >=200 mg/d L plus symptoms Blood Urea Nitrogen 15 10 - 20 mg/dL [facility] Creatinine 1.23 0.80 - 1.50 mg/dL [facility] Comment: Please note that the pediatric reference intervals supplied above were not validated at [facility]. Results from pediatric patients should be interpreted in conjunction to the patient's age, height and muscle mass. Sodium 132(L) 135 - 145 mmol/L [facility] Potassium 3.8 3.5 - 5.0 mmol/L [facility] Comment: Please note: ??Patients with WBC >100,000 may have falsely elevated Potassium levels. ??For accurate Potassium quantification in these patients send serum separator tube (gold top) for subsequent determinations. ??Contact the Clinical Chemistry Laboratory if there are any questions. Chloride 94(L) 98 - 107 mmol/L [facility] Carbon Dioxide 23 22 - 31 mmol/L [facility] Anion Gap 15 5 - 15 mmol/L [facility] Calcium 9.0 8.5 - 10.5 mg/dL [facility] Protein, Total 7.4 6.1 - 8.0 gm/dL [facility] Albumin 3.4 3.2 - 5.2 gm/dL [facility] Aspartate Aminotransferase Not Perf 0 - 39 unit/L [facility] Comment: Unable to quantitate due to sample hemolysis. ??Sample redraw suggested. called to Mark Barba Alanine Aminotransferase 13 0 - 55 unit/L [facility] Alkaline Phosphatase 59 40 - 120 unit/L [facility] Bilirubin, Total 2.4(H) 0.2 - 1.3 mg/dL [facility] Bilirubin, Direct 0.5(H) 0.0 - 0.3 mg/dL [facility] Est Glomerular Filtration Rate 59(L) >=60 [facility] Comment: This estimated GFR [...] the following links into your internet browser. [email or web address] Blood specimen (specimen) 06/22/2016 8:16 PM EST 06/22/2016 8:26 PM EST Narrative Resulting Agency Comment Spec In Lab Tal Eagle MD CHEMISTRY ORDERAB LES Performing Organization Address City/[facility] Co de Phone Number [facility] [place] [address] * Blood culture (06/22/2016 8:16 PM EST) Blood Culture No growth at 5 days. [facility] Blood specimen (specimen) 06/22/2016 8:16 PM EST 06/22/2016 8:44 PM EST Comment:DRAW BLOOD CULTURES BEFORE ADMINISTERING ANTIBIOTICS Narrative Resulting Agency Comment Spec In Lab Tal Eagle MD MICROBIOLOGY - BL OOD ORDERABLES Performing Organization Address City/[facility]/ZIP Co de Phone Number [facility] [place] [address] * Blood culture (06/22/2016 8:16 PM EST) Blood Culture No growth at 5 days. [facility] Blood specimen (specimen) 06/22/2016 8:16 PM EST 06/22/2016 8:44 PM EST Comment:DRAW BLOOD CULTURES BEFORE ADMINISTERING ANTIBIOTICS Narrative Resulting Agency Comment Spec In Lab Tal Eagle MD MICROBIOLOGY - BL OOD ORDERABLES Performing Organization Address [facility]/ZIP Co de Phone Number [facility] [place] [address] * Urine culture (06/22/2016 8:12 PM EST) Urine Culture No growth (Less than 1,000 cfu/ml). [facility] Urine specimen obtained by clean catch procedure (specimen) 06/22/2016 8:12 PM EST 06/22/2016 8:59 PM EST Narrative Resulting Agency Comment Spec In Lab Tal Eagle MD MICROBIOLOGY - GE NERAL ORDERABLES Performing Organization Address City/[facility] Co de Phone Number [facility] [place] [address] * Urine Hold (06/22/2016 8:12 PM EST) Hold, Urine Sample in lab. [facility] Urine specimen (specimen) Urine / Unknown 06/22/2016 8:12 PM EST 06/22/2016 8:35 PM EST Tal Eagle MD URINE ORDERABLES Performing Organization Address [facility] Co de Phone Number [facility] [place] [address] * (ABNORMAL) Urinalysis with reflex Culture (06/22/2016 8:12 PM EST) Glucose, Urine Dipstick Negative Negative mg/dL [facility] Protein, Urine Dipstick 30(A) Negative mg/dL [facility] Bilirubin, Urine Dipstick Negative Negative mg/dL [facility] Comment: Clinical correlation required for positive Urine Bilirubin results as false positive may occur with some drugs and drug related products. If a false positive is suspected a serum total bilirubin should be considered if clinically indicated. Urobilinogen, Urine Dipstick Normal Normal mg/dL [facility] pH, Urn (dipstick) 6.0 5.0 - 8.0 [facility] Blood, Urine Dipstick Small(A) Negative mg/dL [facility] Ketone, Urine Dipstick Negative Negative mg/dL [facility] Nitrite, Urine Dipstick Negative Negative [facility] Leukocytes, Urine Dipstick Large(A) Negative [facility] Appearance, Urine Dipstick Clear Clear [facility] Specific Witter Urine Automated 1.011 1.002 - 1.030 [facility] Color, Urine Dipstick Yellow Yellow [facility] RBC, Urine 4(H) 0 - 3 /HPF [facility] WBC, Urine 42(H) 0 - 3 /HPF [facility] WBC Clumps, Urine Rare(A) None /HPF [facility] Bacteria, Urine Rare(A) None /HPF [facility] Renal Epithelial Cells, Urine <1(H) <=0 /HPF [facility] Reflex to Culture Yes [facility] Urine specimen obtained by clean catch procedure (specimen) 06/22/2016 8:12 PM EST 06/22/2016 8:34 PM EST Narrative Resulting Agency Comment Spec In Lab Tal Eagle MD URINE ORDERABLES [facility] [place] [address] documented in this encounter Visit Diagnoses Diagnosis ESRD (end stage renal disease) End stage renal disease Sepsis documented in this encounter Admitting Diagnoses Diagnosis Sepsis documented in this encounter Administered Medications Inactive Administered Medications - up to 3 most recent administrations Medication Order MAR Action Action Date Dose Rate Site ascorbic acid (vitamin C) (VITAMIN C) tablet 500 mg 500 mg, Oral, 3 TIMES DAILY, First dose on Thu06/24/16 at 1000, Until Discontinued Given 06/25/2016 8:07 AM EST 500 mg Given 06/24/2016 8:37 PM EST 500 mg Given 06/24/2016 3:01 PM EST 500 mg aspirin chewable tablet 81 mg 81 mg, Oral, DAILY, First dose on Thu06/22/16 at 2015, Until Discontinued, Routine Given 06/23/2016 9:12 AM EST 81 mg Given 06/22/2016 9:17 PM EST 81 mg calciTRIol (ROCALTROL) capsule 0.5 mcg 0.5 mcg, Oral, DAILY, First dose on Thu06/23/16 at 0900, Until Discontinued, Routine Given 06/25/2016 8:07 AM EST 0.5 mcg Given 06/24/2016 9:22 AM EST 0.5 mcg Given 06/23/2016 9:12 AM EST 0.5 mcg ciprofloxacin (CIPRO) tablet 500 mg 500 mg, Oral, 2 TIMES DAILY, First dose on Thu06/24/16 at 1900, Until Discontinued, Routine, Indication for (Active or Suspected): Urinary Tract/Pyelonephritis Given 06/25/2016 6:42 AM EST 500 mg Given 06/24/2016 6:49 PM EST 500 mg clopidogrel (PLAVIX) tablet 75 mg 75 mg, Oral, DAILY, First dose on Thu06/24/16 at 0900, Until Discontinued, Routine Given 06/25/2016 8:06 AM EST 75 mg Given 06/24/2016 9:21 AM EST 75 mg levothyroxine (SYNTHROID) tablet 100 mcg 100 mcg, Oral, EVERY MORNING, First dose on Thu06/23/16 at 0600, Until Discontinued, Routine Given 06/25/2016 5:41 AM EST 100 mcg Given 06/24/2016 6:28 AM EST 100 mcg Given 06/23/2016 5:50 AM EST 100 mcg magnesium oxide (MAG-OX) tablet 400 mg 400 mg, Oral, 2 TIMES DAILY, First dose on Thu06/23/16 at 2100, Until Discontinued, Routine Given 06/25/2016 8:07 AM EST 400 mg Given 06/24/2016 8:37 PM EST 400 mg Given 06/24/2016 9:22 AM EST 400 mg mycophenolate (CELLCEPT) capsule 250 mg 250 mg, Oral, 2 TIMES DAILY, First dose on Thu06/22/16 at 2100, Until Discontinued, DO NOT CRUSH OR OPEN, Routine Given 06/25/2016 8:07 AM EST 250 mg Given 06/24/2016 8:36 PM EST 250 mg Given 06/24/2016 9:22 AM EST 250 mg oxyCODONE (ROXICODONE) immediate release tablet 5 mg 5 mg, Oral, EVERY 4 HOURS PRN, Starting on Thu06/22/16 at 1956, Until Thu06/25/16 at 1322, Pain, Routine Given 06/24/2016 8:37 PM EST 5 mg Given 06/24/2016 9:21 AM EST 5 mg Given 06/24/2016 3:46 AM EST 5 mg piperacillin-tazobactam (ZOSYN) 3.375 g in dextrose 5% 50 mL 3.375 g, Intravenous, EVERY 8 HOURS, First dose on Thu06/22/16 at 2014, Until Discontinued, Administer over 4 Hours, Warning Vesicant/Irritant Medication , Indication for (Active or Suspected): Urinary Tract/Pyelonephritis Given 06/24/2016 12:36 PM EST 3.375 g 12.5 mL/h r Given 06/24/2016 3:42 AM EST 3.375 g 12.5 mL/hr Given 06/23/2016 9:27 PM EST 3.375 g 12.5 mL/hr potassium phosphate (monobasic) (K-PHOS) tablet 500 mg 500 mg, Oral, 4 TIMES DAILY WITH MEALS & NIGHTLY, First dose on Thu06/23/16 at 1800, Until Discontinued, Dissolve tablets in 6-8 oz of water; for best results, soak tablets in water for 2-5 minutes, then stir and give to patient., Routine Given 06/25/2016 8:06 AM EST 500 mg Given 06/24/2016 8:36 PM EST 500 mg Given 06/24/2016 5:16 PM EST 500 mg sodium chloride 0.9 % flush 5 mL 5 mL, Intravenous, 2 TIMES DAILY, First dose on Thu06/22/16 at 2100, Until Discontinued, Routine Given 06/25/2016 8:08 AM EST 5 mLs Given 06/24/2016 8:39 PM EST 5 mLs Given 06/24/2016 9:22 AM EST 10 mLs sodium chloride 0.9% 1,000 mL IV bolus Intravenous, ONCE, 1 dose, On Thu06/22/16 at 2015 Given 06/22/2016 8:16 PM EST sodium chloride 0.9% infusion 125 mL/hr, Intravenous, CONTINUOUS, Starting on 06/22/16 at 2015, Until Thu06/23/16 at 1008 New Bag 06/22/2016 8:16 PM EST 125 mL/hr 125 mL/hr tacrolimus (PROGRAF) capsule 0.5 mg 0.5 mg, Oral, NIGHTLY, First dose on 06/22/16 at 2100, Until Discontinued, Routine Given 06/22/2016 8:40 PM EST 0.5 mg tacrolimus (PROGRAF) capsule 1 mg 1 mg, Oral, DAILY, First dose on Thu06/23/16 at 0900, Until Discontinued, Routine Given 06/25/2016 8:06 AM EST 1 mg Given 06/24/2016 9:22 AM EST 1 mg Given 06/23/2016 9:12 AM EST 1 mg tacrolimus (PROGRAF) capsule 1 mg 1 mg, Oral, NIGHTLY, First dose (after last modification) on Thu06/23/16 at 2100, Until Discontinued, Routine Given 06/24/2016 8:36 PM EST 1 mg Given 06/23/2016 9:01 PM EST 1 mg tamsulosin (FLOMAX) ER capsule 0.4 mg 0.4 mg, Oral, NIGHTLY, First dose on 06/22/16 at 2100, Until Discontinued, DO NOT CRUSH OR OPEN, Routine Given 06/24/2016 8:36 PM EST 0.4 mg Given 06/23/2016 9:01 PM EST 0.4 mg Given 06/22/2016 8:39 PM EST 0.4 mg vancomycin 1 g in 0.9 % sodium chloride 200 mL 1,000 mg (1 g), Intravenous, EVERY 12 HOURS, First dose on Thu06/23/16 at 0400, Until Discontinued, Maximum infusion rate is 1 gram/hour. If flushing of the face, neck, upper body, arms, and/or back occurs decrease infusion rate by 50% to reduce the severity of symptoms. This medication may have an associated drug lab level. Please see MAR for scheduled level. Warning Vesicant/Irritant Medication , Routine Given 06/23/2016 3:05 AM EST 1,000 mg vancomycin 1 g in 0.9 % sodium chloride 200 mL 1,000 mg (1 g), Intravenous, ONCE, 1 dose, On Thu06/23/16 at 1530, Maximum infusion rate is 1 gram/hour. If flushing of the face, neck, upper body, arms, and/or back occurs decrease infusion rate by 50% to reduce the severity of symptoms. This medication may have an associated drug lab level. Please see MAR for scheduled level. Warning Vesicant/Irritant Medication , STAT Given 06/23/2016 4:16 PM EST 1,000 mg documented in this encounter Active and Recently Administered Medications Times are shown in EST. Scheduled Medication Order 06/23/2016 06/24/2016 06/25/2016 ascorbic acid (vitamin C) (VITAMIN C) tablet 500 mg 500 mg, Oral, 3 TIMES DAILY, First dose on Thu06/24/16 at 1000, Until Discontinued 1235 (Given - Provider: Ryan Fuchs RN)1501 (Given - Provider: Ryan Fuchs RN)2037 (Given - Provider: Sonia Collins RN) 0807 (Given - Provider: Gonzalo Granados RN) aspirin chewable tablet 81 mg (CANCELED) 81 mg, Oral, DAILY, First dose on Thu06/22/16 at 2015, Until Discontinued, Routine 0912 (Given - Provider: Sonia Collins RN) calciTRIol (ROCALTROL) capsule 0.5 mcg 0.5 mcg, Oral, DAILY, First dose on Thu06/23/16 at 0900, Until Discontinued, Routine 0912 (Given - Provider: Sonia Collins RN) 0922 (Given - Provider: Ryan Fuchs RN) 0807 (Given - Provider: Gonzalo Granados, JADEN) ciprofloxacin (CIPRO) tablet 500 mg 500 mg, Oral, 2 TIMES DAILY, First dose on Thu06/24/16 at 1900, Until Discontinued, Routine, Indication for (Active or Suspected): Urinary Tract/Pyelonephritis 1849 (Given - Provider: Ryan Fuchs RN) 0642 (Given - Provider: Sonia Collins RN) clopidogrel (PLAVIX) tablet 75 mg 75 mg, Oral, DAILY, First dose on Thu06/24/16 at 0900, Until Discontinued, Routine 0921 (Given - Provider: Ryan Fuchs RN) 0806 (Given - Provider: Gonzalo Granados RN) levothyroxine (SYNTHROID) tablet 100 mcg 100 mcg, Oral, EVERY MORNING, First dose on Thu06/23/16 at 0600, Until Discontinued, Routine 0550 (Given - Provider: Brenda Escalante RN) 0628 (Given - Provider: Brenda Escalante RN) 0541 (Given - Provider: Sonia Collins RN) magnesium oxide (MAG-OX) tablet 400 mg 400 mg, Oral, 2 TIMES DAILY, First dose on Thu06/23/16 at 2100, Until Discontinued, Routine 2100 (Given - Provider: Brenda Escalante RN) 921 (Given - Provider: Ryan Fuchs RN)2036 (Given - Provider: Sonia Collins RN) 0807 (Given - Provider: Gonzalo Granados, JADEN) mycophenolate (CELLCEPT) capsule 250 mg 250 mg, Oral, 2 TIMES DAILY, First dose on Thu06/22/16 at 2100, Until Discontinued, DO NOT CRUSH OR OPEN, Routine 911 (Given - Provider: Sonia Collins RN)2099 (Given - Provider: Brenda Escalante RN) 921 (Given - Provider: Ryan Fuchs RN)2035 (Given - Provider: Sonia Collins RN) 0807 (Given - Provider: Gonzalo Granados RN) piperacillin-tazobactam (ZOSYN) 3.375 g in dextrose 5% 50 mL 3.375 g, Intravenous, EVERY 8 HOURS, First dose on Thu06/22/16 at 2015, Until Discontinued, Administer over 4 Hours, Warning Vesicant/Irritant Medication , Indication for (Active or Suspected): Urinary Tract/Pyelonephritis 0423 (Given - Provider: Brenda Escalante RN)1138 (Given - Provider: Sonia Collins RN)2127 (Given - Provider: Brenda Escalante RN) 0342 (Given - Provider: Brenda Escalante RN)1236 (Given - Provider: Ryan Fuchs RN) potassium phosphate (monobasic) (K-PHOS) tablet 500 mg 500 mg, Oral, 4 TIMES DAILY WITH MEALS & NIGHTLY, First dose on Thu06/23/16 at 1800, Until Discontinued, Dissolve tablets in 6-8 oz of water; for best results, soak tablets in water for 2-5 minutes, then stir and give to patient., Routine 172 (Given - Provider: Sonia Collins RN) 09 (Given - Provider: Ryan Fuchs RN)123 (Given - Provider: Ryan Fuchs RN)171 (Given - Provider: Ryan Fuchs RN)2035 (Given - Provider: Sonia Collins RN) 08 (Given - Provider: Gonzalo Granados RN) sodium chloride 0.9 % flush 5 mL 5 mL, Intravenous, 2 TIMES DAILY, First dose on 06/22/16 at 2100, Until Discontinued, Routine 911 (Given - Provider: Sonia Collins RN)2127 (Given - Provider: Brenda Escalante RN) 09 (Given - Provider: Ryan Fuchs RN)2038 (Given - Provider: Sonia Collins RN) 0808 (Given - Provider: Gonzalo Granados RN) tacrolimus (PROGRAF) capsule 1 mg 1 mg, Oral, DAILY, First dose on Thu06/23/16 at 0900, Until Discontinued, Routine 911 (Given - Provider: Sonia Collins RN) 09 (Given - Provider: Ryan Fuchs RN) 08 (Given - Provider: Gonzalo Granados RN) tacrolimus (PROGRAF) capsule 1 mg 1 mg, Oral, NIGHTLY, First dose (after last modification) on Thu06/23/16 at 2100, Until Discontinued, Routine 2100 (Given - Provider: Brenda Escalante RN) 2035 (Given - Provider: Sonia Collins RN) tamsulosin (FLOMAX) ER capsule 0.4 mg 0.4 mg, Oral, NIGHTLY, First dose on 06/22/16 at 2100, Until Discontinued, DO NOT CRUSH OR OPEN, Routine 2100 (Given - Provider: Brenda Escalante RN) 2035 (Given - Provider: Sonia Collins RN) vancomycin 1 g in 0.9 % sodium chloride 200 mL (CANCELED) 1,000 mg (1 g), Intravenous, EVERY 12 HOURS, First dose on Thu06/23/16 at 0400, Until Discontinued, Maximum infusion rate is 1 gram/hour. If flushing of the face, neck, upper body, arms, and/or back occurs decrease infusion rate by 50% to reduce the severity of symptoms. This medication may have an associated drug lab level. Please see MAR for scheduled level. Warning Vesicant/Irritant Medication , Routine 0305 (Given - Provider: Brenda Escalante, RN) vancomycin 1 g in 0.9 % sodium chloride 200 mL (COMPLETED)(Linked Group 1) 1,000 mg (1 g), Intravenous, ONCE, 1 dose, On 06/23/16 at 1530, Maximum infusion rate is 1 gram/hour. If flushing of the face, neck, upper body, arms, and/or back occurs decrease infusion rate by 50% to reduce the severity of symptoms. This medication may have an associated drug lab level. Please see MAR for scheduled level. Warning Vesicant/Irritant Medication , STAT 1616 (Given - Provider: Sonia Collins, JADEN) PRN Medication Order 06/23/2016 06/24/2016 06/25/2016 lidocaine (XYLOCAINE) 10 mg/mL (1 %) injection 3 mg 3 mg (0.3 mL), Subcutaneous, ONCE PRN, 1 dose, Starting on 06/22/16 at 1956, Until Thu06/25/16 at 1322, for discomfort with PIV insertion, Routine oxyCODONE (ROXICODONE) immediate release tablet 5 mg 5 mg, Oral, EVERY 4 HOURS PRN, Starting on 06/22/16 at 1956, Until Thu06/25/16 at 1322, Pain, Routine 1951 (Given - Provider: Aubrey Abraham RN) 034 (Given - Provider: Brenda Escalante, JADEN)09 (Given - Provider: Ryan Fuchs RN)2036 (Given - Provider: Sonia Collins RN) sodium chloride 0.9 % flush 5-20 mL 5-20 mL, Intravenous, EVERY 1 MIN PRN, Starting on 06/22/16 at 1956, Until Thu06/25/16 at 1322, flush, Flush pertains to all indwelling lines. Flush per protocol found in the job aid using the link provided on this medication record., Routine Linked Groups Order Group 1: vancomycin 1 g in 0.9 % sodium chloride 200 mL (COMPLETED)Jump to med 1,000 mg (1 g), Intravenous, ONCE, 1 dose, On Thu06/23/16 at 1530, Maximum infusion rate is 1 gram/hour. If flushing of the face, neck, upper body, arms, and/or back occurs decrease infusion rate by 50% to reduce the severity of symptoms. This medication may have an associated drug lab level. Please see MAR for scheduled level. Warning Vesicant/Irritant Medication , STAT And Vancomycin, trough (CANCELED) New collection, Timed, PRN, Starting on Thu06/23/16 at 1447, Until Specified And Vancomycin Level - MAR Order Reminder (CANCELED) NOT APPLICABLE, PER PHARMACY, Other, Starting on Thu06/23/16 at 1447, Until Thu06/24/16 at 0642, This alert will be scheduled by a pharmacist after order placement. This order is a reminder to nursing staff to release and draw the PRN drug level at the specified time. It may be necessary to contact phlebotomy 60 minutes prior to the scheduled due time to assure a timely blood draw. documented in this encounter Care Teams Electrotherapist Relationship Specialty Start Date End Date Urbano Denis DO [address] [place] [address] PCP - General 09/03/12 03/17/22 Ruchi Valles RN Nurse Clinic Transplant Surgery 07/30/15 documented as of this encounter
--- OUTSIDE RECORDS SUMMARY | 2024-02-14 11:27 | XMS_ITS | Encounter Summary ---
[place] [address] Care Team Providers Care Archeologist Name Role Phone Adeel Urbano KIRBY Primary Care Provider [phone] Encounter Details Date Type Department Care Team (Latest Contact Info) Description 09/15/2016 9:00 AM EDT Laboratory Appointment Lab [address] [place] [address] S/P kidney transplant; Kidney replaced by transplant; USP current use of 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 drug ; Vitamin [...] EDT Hospital Encounter [place] [address] Arrived documented as of this [...] Procedure Name Priority Date/Time Associated Diagnosis Comments CALCIUM CREATININE RATIO, RANDOM URINE STAT 09/15/2016 9:57 AM EDT Kidney replaced by transplant PROTEIN/CREATININE RATIO, URINE STAT 09/15/2016 9:57 AM EDT Kidney replaced by transplant PHOSPHORUS, URINE, RANDOM STAT 09/15/2016 9:57 AM EDT Kidney replaced by transplant URINALYSIS WITH REFLEX CULTURE STAT 09/15/2016 9:57 AM EDT Kidney replaced by transplant BK QUANT BLOOD RESULT STAT 09/15/2016 9:38 AM EDT Kidney replaced by transplant PTH STAT 09/15/2016 9:38 AM EDT Kidney replaced by transplant CMP W/FASTING GLUCOSE STAT 09/15/2016 9:38 AM EDT Kidney replaced by transplant BKV QUANT BLOOD STAT 09/15/2016 9:38 AM EDT Kidney replaced by transplant HEMOGRAM STAT 09/15/2016 9:38 AM EDT Kidney replaced by transplant DIFFERENTIAL, AUTOMATED STAT 09/15/2016 9:38 AM EDT Kidney replaced by transplant GOLD TUBE HOLD STAT 09/15/2016 9:38 AM EDT Kidney replaced by transplant LAVENDER TUBE HOLD STAT 09/15/2016 9: 38 AM EDT Kidney replaced by transplant TACROLIMUS LEVEL STAT 09/15/2016 9:38 AM EDT Kidney replaced by transplant 1,25-DIHYDROXYCHOL ECALCIFEROL STAT 09/15/2016 9:38 AM EDT Kidney replaced by transplant VITAMIN D, 25-HYDROXY STAT 09/15/2016 9:38 AM EDT Vitamin D deficiency Kidney replaced by transplant CBC (WITH DIFF) STAT 09/15/2016 9:38 AM EDT Kidney replaced by transplant URIC ACID STAT 09/15/2016 9:38 AM EDT Kidney replaced by transplant PHOSPHORUS STAT 09/15/2016 9:38 AM EDT Kidney replaced by transplant MAGNESIUM STAT 09/15/2016 9:38 AM EDT Kidney replaced by transplant HEMOGLOBIN A1C STAT 09/15/2016 9:38 AM EDT USP current use of immunosuppressive drug Kidney replaced by transplant LIPID PANEL (REFLEX DIRECT LDL) STAT 09/15/2016 9:38 AM EDT Kidney replaced by transplant U24 HRS AND VOLUME STAT 09/15/2016 6: 00 AM EDT URIC ACID, URINE, 24 HOUR STAT 09/15/2016 6:00 AM EDT Kidney replaced by transplant CALCIUM, URINE, 24 HOUR STAT 09/15/2016 6:00 AM EDT Kidney replaced by transplant CREATININE, URINE, 24 HOUR STAT 09/15/2016 6:00 AM EDT Kidney replaced by transplant PROTEIN, URINE, 24 HOUR STAT 09/15/2016 6:00 AM EDT Kidney replaced by transplant PHOSPHORUS, URINE, 24 HOUR STAT 09/15/2016 6:00 AM EDT Kidney replaced by transplant CREATININE CLEARANCE, URINE, 24 HOUR STAT 09/15/2016 6:00 AM EDT Kidney replaced by transplant documented in this encounter Results * Urinalysis with reflex Culture (09/15/2016 9:57 AM EDT) Glucose, Urine Dipstick Negative Negative mg/dL [facility] Protein, Urine Dipstick Negative Negative mg/dL [facility] Bilirubin, Urine Dipstick Negative Negative mg/dL [facility] Comment: Clinical correlation required for positive Urine Bilirubin results as false positive may occur with some drugs and drug related products. If a false positive is suspected a serum total bilirubin should be considered if clinically indicated. Urobilinogen, Urine Dipstick Normal Normal mg/dL [facility] pH, Urn (dipstick) 6.0 5.0 - 8.0 [facility] Blood, Urine Dipstick Negative Negative mg/dL [facility] Ketone, Urine Dipstick Negative Negative mg/dL [facility] Nitrite, Urine Dipstick Negative Negative [facility] Leukocytes, Urine Dipstick Negative Negative mcL [facility] Appearance, Urine Dipstick Clear Clear [facility] Specific Ione Urine Automated 1.016 1.002 - 1.030 [facility] Color, Urine Dipstick Yellow Yellow [facility] RBC, Urine 1 0 - 3 /HPF [facility] WBC, Urine 1 0 - 3 /HPF [facility] Reflex to Culture No [facility] Urine specimen obtained by clean catch procedure (specimen) 09/15/2016 9:57 AM EDT 09/15/2016 10:07 AM EDT Narrative Resulting Agency Comment Spec In Lab Tal Eagle MD URINE ORDERABLES [facility] [place] [address] * (ABNORMAL) Protein/Creatinine Ratio, urine (09/15/2016 9:57 AM EDT) Creatinine, Urine 83 mg/dL [facility] Protein, Urine 14(H) 0 - 12 mg/dL [facility] Protein / Creatinine Ratio, Urine 0.2 ratio [facility] Urine specimen (specimen) 09/15/2016 9:57 AM EDT 09/15/2016 10:13 AM EDT Narrative Resulting Agency Comment Spec In Lab Tal Eagle MD URINE ORDERABLES Performing Organization Address [facility] Co de Phone Number [facility] [place] [address] * Phosphorus, urine, random (09/15/2016 9:57 AM EDT) Phosphorus, Urine 56.0 mg/dL [facility] Urine specimen (specimen) 09/15/2016 9:57 AM EDT 09/15/2016 10:13 AM EDT Narrative Resulting Agency Comment Spec In Lab Tal Eagle MD URINE ORDERABLES Performing Organization Address [facility] de Phone Number [facility] [place] [address] * Calcium Creatinine Ratio, random urine (09/15/2016 9:57 AM EDT) Calcium, Urine 13.0 mg/dL [facility] Creatinine, Urine 83 mg/dL [facility] Calcium / Creatinine Ratio, Urine 0.16 ratio [facility] Urine specimen (specimen) 09/15/2016 9:57 AM EDT 09/15/2016 10:13 AM EDT Narrative Resulting Agency Comment Spec In Lab Tal Eagle MD URINE ORDERABLES Performing Organization Address [facility] Co de Phone Number [facility] [place] [address] * BK Quant Blood Result (09/15/2016 9:38 AM EDT) BKV Blood Result Not Detected [facility] BKV Blood Interp BK Virus Plasma Result Interpretation Result: BK Virus not detected Specimen type: plasma Assay Range: 2.83-8.83 log copies/mL (6.8x10^2 - 6.8x10^8 copies/mL) Methods: Quantitative real-time polymerase chain reaction (PCR) of viral DNA isolated from plasma was performed using Cosential (formerly, Transfercar) BKV analyte-specific reagents and the Applied Biosystems [...] [facility] ([facility]) Laboratory at [facility]. It has not been cleared or approved by the FDA. The laboratory is regulated under CLIA as qualified to perform high-complexity testing. This test is used for clinical purposes. It should not be regarded as investigational or for research. [facility] Comment: [VERIFIED DATE]09.16.16 Verified By:Jimmy Gleason (Electronic Signature) Blood specimen (specimen) 09/15/2016 9:38 AM EDT 09/15/2016 12:42 PM EDT Narrative Resulting Agency Comment Spec In Lab Tal Eagle MD HEMATOLOGY ORDERA BLES [facility] [place] [address] * Differential, Automated (09/15/2016 9:38 AM EDT) Neutrophil % 61.7 % [facility] Neutrophil Absolute 3.73 1.70 - 6.10 x10(3)/[facility] Lymph % 25.6 % [facility] Lymphocytes Abs 1.6 0.9 - 3.2 x10(3)/[facility] Monocyte % 8.4 % [facility] Monocyte Abs 0.5 0.3 - 0.9 x10(3)/[facility] Eos % 3.1 % [facility] Eosinophils Abs 0.2 0.0 - 0.4 x10(3)/[facility] Basophil % 1.0 % [facility] Baso Absolute 0.1 0.0 - 0.1 x10(3)/[facility] Immature Gran % 0.20 % [facility] Comment: Immature granulocytes(IG's)percentage and absolute count will include metamyelocytes, myelocytes, and promyelocytes. Blood smears from CBCs yielding IG's will be scanned manually for concordance. If this scan disagrees with the automated IG or if promyelocytes are noted, a manual differential will be performed. Immature Gran Absolute 0.01 0.00 - 0.04 x10(3)/[facility] Blood specimen (specimen) 09/15/2016 9:38 AM EDT 09/15/2016 9:44 AM EDT Narrative Resulting Agency Comment Spec In Lab Tal Eagle MD HEMATOLOGY ORDERA BLES Performing Organization Address City/State/[facility] Co de Phone Number [facility] [place] [address] * Hemogram (09/15/2016 9:38 AM EDT) White Blood Cell 6.0 4.0 - 9.5 x10(3)/[facility] Red Blood Cell 5.05 4.58 - 5.54 x10(6)/[facility] Hemoglobin 15.7 13.7 - 16.5 gm/dL [facility] Hematocrit 44.2 40.5 - 48.5 % [facility] Mean Cell Volume 87.5 82.9 - 93.1 [facility] Mean Cell Hemoglobin 31.1 27.5 - 32.1 pg [facility] Mean Cell Hemoglobin Concentration 35.5 32.0 - 35.7 gm/dL [facility] Platelet 238 145 - 357 x10(3)/[facility] RDW Standard Deviation 39.8 36.0 - 45.0 [facility] RDW coefficient of variation 12.4 11.4 - 13.8 % [facility] Mean Platelet Volume 9.2 7.6 - 12.9 fL [facility] NRBC% auto 0.0 % [facility] NRBC Absolute 0.000 0.000 - 0.000 x10(3)/mcL [facility] Blood specimen (specimen) 09/15/2016 9:38 AM EDT 09/15/2016 9:44 AM EDT Narrative Resulting Agency Comment Spec In Lab Tal Eagle MD HEMATOLOGY ORDERA BLES Performing Organization Address City/[facility]/ZIP Co de Phone Number [facility] [place] [address] * (ABNORMAL) Vitamin D, 25-Hydroxy (09/15/2016 9:38 AM EDT) Vitamin D Total 25 OH 16(L) 30 - 100 ng/mL [facility] Comment: Deficient <10 ng/mL Insufficient 10 to 29 ng/mL Sufficient 30 to 100 ng/mL Potential Intoxication >100 ng/mL According to the [place] National Osteoporosis Foundation, Vitamin D concentrations >30 ng/mL are sufficient to protect bone health. ??The National Kidney Foundation has similarly stated that patients with Vitamin D concentrations <30ng/mL should be considered to be insufficient or deficient. http://Hawthorne/DHnatlkidneyfoundation http://Hawthorne/DHMCVitD The IDS iSYS Vitamin D Immunoassay detects both 25-OH Vitamin D2 and 25-OH Vitamin D3, but only a total Vitamin D concentration is reported. Blood specimen (specimen) 09/15/2016 9:38 AM EDT 09/15/2016 12:08 PM EDT Narrative Resulting Agency Comment Spec In Lab Tal Eagle MD CHEMISTRY ORDERAB LES Performing Organization Address City/[facility]/ZIP Co de Phone Number [facility] [place] [address] * Uric acid (09/15/2016 9:38 AM EDT) Uric Acid 7.7 3.5 - 8.5 mg/dL [facility] Blood specimen (specimen) 09/15/2016 9:38 AM EDT 09/15/2016 9:44 AM EDT Narrative Resulting Agency Comment Spec In Lab Tal Eagle MD CHEMISTRY ORDERAB LES Performing Organization Address City/[facility]/ZIP Co de Phone Number [facility] [place] [address] * Tacrolimus level (09/15/2016 9:38 AM EDT) Tacrolimus 3.4 ng/mL [facility] Comment: Trough therapeutic: ??5-15 ng/mL Performed by ultra-performance liquid chromatography tandem mass spectrometry (UPLCMS/MS). Blood specimen (specimen) 09/15/2016 9:38 AM EDT 09/15/2016 10:07 AM EDT Narrative Resulting Agency Comment Spec In Lab Tal Eagle MD CHEMISTRY ORDERAB LES Performing Organization Address City/[facility] Co de Phone Number [facility] [place] [address] * PTH (09/15/2016 9:38 AM EDT) Parathyroid Hormone 36 15 - 65 pg/mL [facility] Blood specimen (specimen) 09/15/2016 9:38 AM EDT 09/15/2016 9:44 AM EDT Narrative Resulting Agency Comment Spec In Lab Tal Eagle MD CHEMISTRY ORDERAB LES Performing Organization Address City/[facility] Co de Phone Number [facility] [place] [address] * Phosphorus (09/15/2016 9:38 AM EDT) Phosphorus 3.1 2.5 - 4.5 mg/dL [facility] Blood specimen (specimen) 09/15/2016 9:38 AM EDT 09/15/2016 9:44 AM EDT Narrative Resulting Agency Comment Spec In Lab Tal Eagle MD CHEMISTRY ORDERAB LES [facility] [place] [address] * Magnesium (09/15/2016 9:38 AM EDT) Magnesium 0.77 0.69 - 1.07 mmol/L [facility] Blood specimen (specimen) 09/15/2016 9:38 AM EDT 09/15/2016 9:44 AM EDT Narrative Resulting Agency Comment Spec In Lab Tal Eagle MD CHEMISTRY ORDERAB LES Performing Organization Address [facility] Co de Phone Number [facility] [place] [address] * (ABNORMAL) Lipid Panel (09/15/2016 9:38 AM EDT) Cholesterol, Total 123 <=239 mg/dL [facility] Triglyceride 106 <=199 mg/dL [facility] HDL Cholesterol 38(L) >=40 mg/dL [facility] LDL Cholesterol 64 <=190 mg/dL [facility] Cholesterol/HDL Ratio 3.2 ratio [facility] Lipid Interpretation See Note [facility] Comment: Lipid management should be guided by a patient? s ASCVD risk, goals and preferences. ACC/AHA Guidelines recommend high intensity statin if clinical ASCVD or LDL greater than or equal to 190 mg/dL. http://circ.ahajournals.org/content/early/.cir.9742803716.83966.7a Adults aged 40-75 with LDL 70-189 mg/dL should have their 10 year ASCVD risk estimated with the ACC/AHA ASCVD risk fence erector supervisor http://tools.acc.org/RLUGI-Gqrq-Mululijnh/ Statin should be discussed if risk greater [...] MD CHEMISTRY ORDERAB LES Performing Organization Address [facility]/ZIP Co de Phone Number [facility] [place] [address] * Lavender Tube HOLD (09/15/2016 9:38 AM EDT) Lavender Hold Sample in lab. [facility] Blood specimen (specimen) 09/15/2016 9:38 AM EDT 09/15/2016 9:44 AM EDT Tal Eagle MD HEMATOLOGY ORDERA BLES Performing Organization Address [facility] Co de Phone Number [facility] [place] [address] * (ABNORMAL) Hemoglobin A1c (09/15/2016 9:38 AM EDT) Hemoglobin A1c 6.9(H) 4.3 - 5.6 % [facility] [...] Mellitus, Diabetes Care 2013; 36: Suppl. 1, D98-03 Estimated Average Glucose 151 mg/dL [facility] Comment: eAG equivalents for HbA1c percentages: HbA1c(%) ?eAG(mg/dL) 6.0 ?126 6.5 ?140 7.0 ?154 7.5 ?169 8.0 ?183 8.5 ?197 9.0 ?212 9.5 ?226 10.0 ? 240 Limitations: The eAG calculation has not been validated on women, individuals below 18 years old and above 70 years old, and individuals with hemoglobinopathies. Additional resources are available on the ADA website: http://Atlas Genetics.EmergenSee/DHMCadacalc Harjeet MENDOSA, Chanel J, Philip R, et al. ??Translating the A1C assay into estimated average glucose values. ??Diabetes Care 2008:31(8):3334-7666. Blood specimen (specimen) 09/15/2016 9:38 AM EDT 09/15/2016 9:44 AM EDT Narrative Resulting Agency Comment Spec In Lab Tal Eagle MD CHEMISTRY ORDERAB LES Performing Organization Address [facility] Co de Phone Number [facility] [place] [address] * Gold Tube HOLD (09/15/2016 9:38 AM EDT) Gold Hold Sample in lab. [facility] Blood specimen (specimen) 09/15/2016 9:38 AM EDT 09/15/2016 9:44 AM EDT aTl Eagle MD CHEMISTRY ORDERAB LES Performing Organization Address [facility]/State/ZIP Co de Phone Number [facility] [place] [address] * (ABNORMAL) CMP w/fasting Glucose (09/15/2016 9:38 AM EDT) [employer] Signature Glucose Fasting 130(H) 65 - 99 mg/dL [facility] Comment: ?Fasting* Glucose Interpretive Criteria [...] of Diabetes Mellitus, Position Statement from the [place] Diabetes Association. ??Diabetes Care, Volume 33, Supplement 1, Jul 2009 Blood Urea Nitrogen 20 10 - 20 mg/dL [facility] Creatinine 1.30 0.80 - 1.50 mg/dL [facility] Comment: Please note that the pediatric reference intervals supplied above were not validated at [facility]. Results from pediatric patients should be interpreted in conjunction to the patient's age, height and muscle mass. Sodium 137 135 - 145 mmol/L [facility] Potassium 3.6 3.5 - 5.0 mmol/L [facility] Comment: Please note: ??Patients with WBC >100,000 may have falsely elevated Potassium levels. ??For accurate Potassium quantification in these patients send serum separator tube (gold top) for subsequent determinations. ??Contact the Clinical Chemistry Laboratory if there are any questions. Chloride 101 98 - 107 mmol/L [facility] Carbon Dioxide 24 22 - 31 mmol/L [facility] Anion Gap 12 5 - 15 mmol/L [facility] Calcium 9.7 8.5 - 10.5 mg/dL [facility] Protein, Total 7.5 6.1 - 8.0 gm/dL [facility] Albumin 4.0 3.2 - 5.2 gm/dL [facility] Aspartate Aminotransferase 15 0 - 39 unit/L [facility] Alanine Aminotransferase 16 0 - 55 unit/L [facility] Alkaline Phosphatase 62 40 - 120 unit/L [facility] Bilirubin, Total 1.2 0.2 - 1.3 mg/dL [facility] Bilirubin, Direct 0.3 0.0 - 0.3 mg/dL [facility] Est Glomerular Filtration Rate 55(L) >=60 [facility] Comment: This estimated GFR (eGFR) [...] the following links into your internet browser. [email or web address] [email or web address] Blood specimen (specimen) 09/15/2016 9:38 AM EDT 09/15/2016 9:44 AM EDT Narrative Resulting Agency Comment Spec In Lab Tal Eagle MD CHEMISTRY ORDERAB LES [facility] [place] [address] * (ABNORMAL) 1,25-dihydroxycholecalciferol (09/15/2016 9:38 AM EDT) Vit D 1,25 Dihydroxy (NOVEMBER) 65(H) 18 - 64 pg/mL [facility] Comment: ADDITIONAL INFORMATION This test was developed and its performance characteristics determined by [facility] in a manner consistent with CLIA requirements. This test has not been cleared or approved by the U.S. Food and Drug Administration. Test Performed by: [address] [address] Blood specimen (specimen) 09/15/2016 9:38 AM EDT 09/15/2016 11:07 AM EDT Narrative Resulting Agency Comment Spec In Lab Tal Eagle MD LAB SEND OUT ORDE RABLES Performing Organization Address City/[facility]/ZIP Co de Phone Number [facility] [place] [address] * U24 Hrs and Volume (09/15/2016 6:00 AM EDT) Hours Collected 24 hour(s) [facility] Total Volume 1,500 mL [facility] Urine specimen (specimen) 09/15/2016 6:00 AM EDT 09/15/2016 11:16 AM EDT Narrative Resulting Agency Comment Spec In Lab Tal Eagle MD CHEMISTRY ORDERAB LES Performing Organization Address [facility] Co de Phone Number [facility] [place] [address] * Uric acid, urine, 24 hour (09/15/2016 6:00 AM EDT) U24 Uric Conc 38.4 mg/dL [facility] Uric Acid, 24 Hour Urine 0.58 0.25 - 0.80 gm/24hr [facility] Urine specimen (specimen) 09/15/2016 6:00 AM EDT 09/15/2016 11:16 AM EDT Narrative Resulting Agency Comment Spec In Lab Tal Eagle MD URINE ORDERABLES Performing Organization Address [facility] Co de Phone Number [facility] [place] [address] * (ABNORMAL) Protein, urine, 24 hour (09/15/2016 6:00 AM EDT) Protein Concentration, U24 14 <=80 mg/dL [facility] Protein, 24 Hour Urine 0.21(H) <=0.15 gm/24hr [facility] Urine specimen (specimen) 09/15/2016 6:00 AM EDT 09/15/2016 11:16 AM EDT Narrative Resulting Agency Comment Spec In Lab Tal Eagle MD URINE ORDERABLES Performing Organization Address City/[facility] Co de Phone Number [facility] [place] [address] * Phosphorus, urine, 24 hour (09/15/2016 6:00 AM EDT) Phosphorus Concentration, U24 70.2 mg/dL [facility] Phosphorus, 24 Hour Urine 1.1 0.4 - 1.3 gm/24hr [facility] Urine specimen (specimen) 09/15/2016 6:00 AM EDT 09/15/2016 11:16 AM EDT Narrative Resulting Agency Comment Spec In Lab Tal Eagle MD URINE ORDERABLES Performing Organization Address [facility] Co de Phone Number [facility] [place] [address] * Creatinine, urine, 24 hour (09/15/2016 6:00 AM EDT) Cre Concentration, U24 113 mg/dL [facility] Creatinine, 24 Hour Urine 1.70 0.80 - 1.90 gm/24hr [facility] Urine specimen (specimen) 09/15/2016 6:00 AM EDT 09/15/2016 11:16 AM EDT Narrative Resulting Agency Comment Spec In Lab Tal Eagle MD URINE ORDERABLES Performing Organization Address City/[facility] Co de Phone Number [facility] [place] [address] * Creatinine Clearance, urine, 24 hour (09/15/2016 6:00 AM EDT) Creatinine Clearance, 24 Hour Urine 91 90 - 139 mL/min [facility] Cre Concentration, U24 113 mg/dL [facility] Creatinine, 24 Hour Urine 1.70 0.80 - 1.90 gm/24hr [facility] Urine specimen (specimen) 09/15/2016 6:00 AM EDT 09/15/2016 11:16 AM EDT Narrative Resulting Agency Comment Spec In Lab Tal Eagle MD URINE ORDERABLES Performing Organization Address [facility] Co de Phone Number [facility] [place] [address] * Calcium, urine, 24 hour (09/15/2016 6:00 AM EDT) Ca Concentration, U24 12.9 mg/dL [facility] Calcium, 24 Hour Urine 193.5 50.0 - 300.0 mg/24hr [facility] Comment:Reference Range: 50. 0-300.0 mg/24 hour based on diet. Urine specimen (specimen) 09/15/2016 6:00 AM EDT 09/15/2016 11:16 AM EDT Narrative Resulting Agency Comment Spec In Lab Tal Eagle MD URINE ORDERABLES Performing Organization Address City/[facility] Co de Phone Number [facility] [place] [address] documented in this encounter Visit Diagnoses Diagnosis S/P kidney transplant Kidney replaced by transplant Kidney replaced by transplant USP current use of immunosuppressive drug Vitamin D deficiency Unspecified vitamin D deficiency documented in this encounter Care Teams Archeologist Relationship Specialty Start Date End Date Urbano Denis DO [address] [place] [address] PCP - General 09/03/12 03/17/22 VallesRuchi marin RN Nurse Clinic Transplant Surgery 07/30/15 documented as of this encounter
--- OUTSIDE RECORDS SUMMARY | 2024-02-14 11:27 | XMS_ITS | Encounter Summary ---
Author Organization [facility] [place] [address] Care Team Providers Care Practice Business Asst Name Role Phone Urbano Denis DO Primary Care Provider Encounter Details Date Type Department Care Team (Late st Contact Info) Description 07/02/2016 Orders [place] [id number] Samia Escalante, RN Recurrent UTI (urinary tract infection); H/O kidney transplant Social History Tobacco Use [...] AM EDT Hospital Encounter Non-[place] [phone] Arrived documented as of this encounter Visit Diagnoses Diagnosis Recurrent UTI (urinary tract infection) Urinary tract infection, site not specified H/O kidney transplant Kidney replaced by transplant documented in this encounter Care Teams Practice Business Asst Relationship Specialty Start Date End Date Urbano Denis DO [facility] [address] [place] [address] PCP - General 09/03/12 03/17/22 Ruchi Valles RN Nurse Clinic Transplant Surgery 07/30/15 documented as of this encounter
--- OUTSIDE RECORDS SUMMARY | 2024-02-14 11:27 | XMS_ITS | Encounter Summary ---
Author Organization Formerly [facility] Address [facility] [place] [address] Care Team Providers Care Process Pumper Name Role Phone Adeel Urbano KIRBY Primary Care Provider [phone] Reason for Visit * Reason Comments Follow-up Encounter Details Date Type Department Care Team (Late st Contact Info) Description 07/30/2016 11:30 AM EST Office [place] [address] Franko Kim MD [facility] [place] [address] Chronic hepatitis C without hepatic coma Social [...] Sign Reading Time Taken Comments Blood Pressure 131/92 07/30/2016 11:31 AM EST Pulse 102 07/30/2016 11:31 AM EST Temperature 36.4 ??C (97.5 ??F) 07/30/2016 11:[address] Respiratory Rate 24 07/30/2016 11:31 AM EST Oxygen Saturation 97% 07/30/2016 11:31 AM EST RA Inhaled Oxygen Concentration - - Weight 94.6 kg (208 lb 9.6 oz) 07/30/2016 11:31 AM EST Height - - Body Mass Index 29.09 06/23/2016 5:52 AM EST documented in this encounter Progress Notes * Franko Kim - 07/30/2016 11:30 AM EST INFECTIOUS DISEASE OUTPATIENT FOLLOW-UP NOTE [...] has no hardware in place anymore. He unfortunately had one more UTI on 06/22 with an ESBL Klebsiella oxytoca, treated with ciprofloxacin for 14 days. Subjective: Cody Bolden presents today to plan treatment of chronic HCV. He was diagnosed with HCV in 2014 without apparent liver disease and received a kidney transplant from a HCV positive donor. His virus was found to be genotype 1a on 05/25/15 and again on 01/04/16, both times without resistance mutations. In 2014, a fibroscan showed stage 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 On 01/04/16, his viral load was [id number]. He feels well today. Has not had anymore urinary symptoms. He is very motivated to start treatment for HCV. Pertinent Medications: Prograf 1mg AM and 1mg PM Cellcept 250 mg daily Physical Exam: Vitals: 07/30/16 1131 BP: (!) 131/92 Pulse: 102 Resp: 24 Temp: 36.4 ??C (97.5 ??F) General Looks well HEENT No jaundice Heart Regular Lungs Clear Abdomen Obese, not tender Extremities No edema, no stigmata of liver disease Neuro Grossly intact Laboratory Data: Lab Results Component Value Date WBC 8.6 07/08/2016 HGB 14.7 07/08/2016 HCT 41.5 07/08/2016 MCV 90.0 07/08/2016 PLATELET 252 07/08/2016 Lab Results Component Value Date CREATININE 1.28 07/08/2016 Microbiology: 01/04/16 HCV RNA Genotype 1 NS5a Drug Resistance ?? HCV NS5a Subtype ? 1a ?? Daclatasvir Resistance ? NOT PREDICTED ?? Ledipasvir Resistance ? NOT PREDICTED ?? Ombitasvir Resistance ? NOT PREDICTED ?? Elbasvir Resistance ? NOT PREDICTED Mutations Detected NONE Imaging/Studies/Procedures: 05/16/15 Fibroscan stage 1-2 Impression/Plan: Cody Bolden presents today to plan treatment of chronic HCV. He has a history of DM, HTN and renal failure due to hypertensive nephropathy, and received a donor kidney transplantation in 09/17/2015. He was diagnosed with HCV in 2014 without apparent liver disease and received a kidney transplant from a HCV positive donor. His virus was found to be genotype 1a on 05/25/15 and again on 01/04/16, both times without resistance mutations. In 2014, a fibroscan showed stage 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 On 01/04/16, hisviral load was [id number]. On 07/08, he had normal liver tests and a creatine of 1.28 with an eGFR of 56. He is clinically well today. He can be treated for 12 weeks without ribavirin. Our preferred reatment option is Harvoni (ledispavir/sofobuvir), which has no interactions with mycophenolate or tacrolimus but would be relatively contra-indicated if his eGFR were to drop to < 30. I will order a repeat viral load today, as well as baseline labs. We will request insurance authorization for Harvoni and start treatment as soon as we have approval. I will see Mr. Bolden back in the office and check his HCV viral load 4 weeks after start of treatment. Seen and discussed with Infectious Disease attending Dr. Yuliet Kim MD Infectious Disease Fellow Pager [phone] * Aubrey Horvath MD - 07/30/2016 11:30 AM EST Attending Addendum: I have seen and examined the patient, reviewed the data and agree with the note by Dr. Tipton. documented in this encounter Plan of Treatment Upcoming Encounters Date Type Department Care Team (Late st Contact Info) Description 04/15/2024 10:00 AM EDT Hospital Encounter [place] [address] Arrived documented as of this encounter Procedures Procedure Name Priority Date/Time Associated Diagnosis Comments HEPATITIS C RNA, QUANTITATIVE, PCR Routine 07/30/2016 1:06 PM EST Chronic hepatitis C without hepatic coma COMPREHENSIVE METABOLIC PANEL Routine 07/30/2016 1:06 PM EST Chronic hepatitis C without hepatic coma documented in this encounter Results * (ABNORMAL) Comprehensive metabolic panel (non-fasting) (07/30/2016 1:06 PM EST) Glucose 200(H) 65 - 199 mg/dL [facility] Comment:Diabetes: >=200 mg/d L plus symptoms Blood Urea Nitrogen 15 10 - 20 mg/dL [facility] Creatinine 1.24 0.80 - 1.50 mg/dL [facility] Comment: Please note that the pediatric reference intervals supplied above were not validated at [facility]. Results from pediatric patients should be interpreted in conjunction to the patient's age, height and muscle mass. Sodium 141 135 - 145 mmol/L [facility] Potassium 4.2 3.5 - 5.0 mmol/L [facility] Comment: Please note: ??Patients with WBC >100,000 may have falsely elevated Potassium levels. ??For accurate Potassium quantification in these patients send serum separator tube (gold top) for subsequent determinations. ??Contact the Clinical Chemistry Laboratory if there are any questions. Chloride 101 98 - 107 mmol/L [facility] Carbon Dioxide 26 22 - 31 mmol/L [facility] Anion Gap 14 5 - 15 mmol/L [facility] Calcium 9.7 8.5 - 10.5 mg/dL [facility] Protein, Total 7.8 6.1 - 8.0 gm/dL [facility] Albumin 4.2 3.2 - 5.2 gm/dL [facility] Aspartate Aminotransferase 25 0 - 39 unit/L [facility] Alanine Aminotransferase 32 0 - 55 unit/L [facility] Alkaline Phosphatase 65 40 - 120 unit/L [facility] Bilirubin, Total 1.8(H) 0.2 - 1.3 mg/dL [facility] Bilirubin, Direct 0.4(H) 0.0 - 0.3 mg/dL [facility] Est Glomerular Filtration Rate 58(L) >=60 [facility] Comment: This estimated GFR (eGFR) [...] the following links into your internet browser. [email or web address] Blood specimen (specimen) 07/30/2016 1:06 PM EST 07/30/2016 1:13 PM EST Narrative Resulting Agency Comment Spec In Lab Aubrey Horvath MD CHEMISTRY ORDERAB LES [facility] [place] [address] * Hepatitis C RNA, quantitative, PCR (07/30/2016 1:06 PM EST) HCV Viral Load 443,901 IU/mL [facility] HCV Viral Load Result: [id number] IU/mL Indication for Study: Hepatitis C Infection Analysis: A quantitiative real time reverse transcriptase PCR assay was performed on extracted viral RNA for the purpose of quantification. Sample: plasma (1 mL minimum volume) Method: Kirsten June TaqMAN 48 HCV Linear Range: 15 IU/mL - 100,000,000IU/mL (95% CI) Note: This assay is being performed in the [facility] Molecular Pathology Laboratory. Gibson Good, Ph.D. Director, Molecular Pathology [facility] Comment: [VERIFIED DATE]08.05.16 Verified By:Fatemeh Garcia (Electronic Signature) Blood specimen (specimen) 07/30/2016 1:06 PM EST 08/04/2016 9:12 AM EST Narrative Resulting Agency Comment Spec In Lab Aubrey Horvath MD MOLECULAR ORDERAB LES Performing Organization Address City/State/[facility] Co de Phone Number [facility] [place] [address] documented in this encounter Visit Diagnoses Diagnosis Chronic hepatitis C without hepatic coma documented in this encounter Care Teams Process Pumper Relationship Specialty Start Date End Date Urbano Denis DO [address] [place] [address] PCP - General 09/03/12 03/17/22 Ruchi Valles RN Nurse Clinic Transplant Surgery 07/30/15 documented as of this encounter
--- OUTSIDE RECORDS SUMMARY | 2024-02-14 11:27 | XMS_ITS | Encounter Summary ---
[place] [address] Care Team Providers Care Epic Interface Analyst Name Role Phone AdeelUrbano toscano Primary Care Provider Reason for Visit * Reason Onset Date Comments Patient Education 09/23/2016 Encounter Details Date Type Department Care Team (Late st Contact Info) Description 08/13/2016 [place] [address] Selena Cisneros, [facility] Patient Education Social History Tobacco Use Types Packs/Day Years [...] encounter Miscellaneous Notes * Telephone Encounter - Selena Carias, [facility] - 10/23/2016 9:42 AM EDT [facility] [place] Pharmacy: Clinical Management Plan Start Date: 08/13 Day: 71 Diagnosis: Hep C - 1a Drug: Harvoni Directions: Take one tablet by mouth once daily Appropriate therapy: Comorbidities: See ???Problem List?? Medication reconciliation: complete - Yash recently started glipizide ER 5 mg without issue Antacid/H2RA/PPI use: none New medications since beginning therapy: glipizide Consult on medication and disease state: Provided today. Yash is doing well on therapy. Adherence: no missed doses Side effects: none Hydration: Yash tries to stay well hydrated. He is seeing a dietitian locally which is helping. Lab schedule: We discussed the need for EOT labs. It does not look like Yash has an appointment scheduled. Verbalized understanding to call office before start: yes Received welcome packet: yes Additional comments: Yash is doing very well. He feels he has more energy than before he started. Wedid discuss glipizide in great detail. He is tolerating the medication well, but the drug would notbe my first choice with Yash's other conditions/medications. He is trying to focus on diet/exercise so that he can d/c the medication. Informed patient of specialty pharmacy services: yes * Telephone Encounter - Selena Carias [facility] - 10/22/2016 3:37 PM EDT [facility] [place] Pharm[place]: Clinical Management Plan Left message to follow up on Uriel. I also wanted to see how Yash was tolerating the glipizide. * Telephone Encounter - Selena Carias [facility] - 09/23/2016 10:30 AM EDT [facility] [place]: Clinical Management Plan Start Date: 08/13 Day: 39 Diagnosis: Hep C- 1a Drug: Harvoni Directions: Take one tablet by mouth once daily- Yash takes with lunch daily Appropriate therapy: yes Comorbidities: See ???Problem List?? Medication reconciliation: completed today Antacid/H2RA/PPI use: no New medications since beginning therapy: none Consult on medication and disease state: Yash has given me permission to speak with his , Mara.She does manage his medications. Adherence: No missed doses. Mara counted 15 remaining tablets which is appropriate. Side effects: none Hydration: Yash tries to stay well hydrated Lab schedule: Reviewed with Mara. She believes Yash will get labs drawn again in November. Yash and Meire very happy with the results from the lab draw earlier this month. Received welcome packet: Will provide with this fill Additional comments: We will fill Yash's last bottle and mail it to his home this week Informed patient of specialty pharmacy services: yes Next follow-up: EOT lab reminder unneeded. We will be available to answer any questions/concerns Yash may have. * Telephone Encounter - Selena Carias [facility] - 08/13/2016 11:05 AM EST [facility] [place] Pharm[place]: Clinical Management Plan Start Date: 08/13/16 Day: Initial consult Diagnosis: Hepatitis C- 1a Drug: Harvoni Directions: Take one tablet by mouth once daily with or without food. Dosing schedule provided by Joanne Fernandes to patient to coordinate administration with omeprazole and magnesium Appropriate therapy: yes- we will monitor kidney function while on Harvoni Comorbidities: See ???Problem List?? Medication reconciliation: completed on 08/13/16 Antacid/H2RA/PPI use: yes- patient provided with appropriate dosing schedule New medications since beginning therapy: none Consult on medication and disease state: Provided on 08/12/16 by Joanne Fernandes Adherence: n/a Side effects: Consult provided on 08/12/16 Hydration: Consult provided on 08/12/06 Lab schedule: Provided to patient by ID Verbalized understanding to call before start: yes- call received on 08/12/16 Additional comments: Specialty Pharmacy will follow patient as well and provide refill reminders Informed patient of specialty pharmacy services: yes Next follow-up: Day 3 check in on 08/15/16 documented in this encounter Plan of Treatment Upcoming Encounters Date Type Department Care Team (Late st Contact Info) Description 04/15/2024 10:00 AM EDT Hospital Encounter [place] [address] Arrived documented as of this encounter Goals [...] on filedocumented in this encounter Care Teams Epic Interface Analyst Relationship Specialty Start Date End Date Urbano Denis DO [address] [place] [address] [address] [facility] [place] [address] PCP - General 09/03/12 03/17/22 Ruchi Valles RN Nurse Clinic Transplant Surgery 07/30/15 documented as of this encounter
--- OUTSIDE RECORDS SUMMARY | 2024-02-14 11:27 | XMS_ITS | Encounter Summary ---
Author Organization [facility] Address [facility] [place] [address] Care Team Providers Care Brand Ambassadors Promotional Sales Name Role Phone Urbano Denis DO Primary Care Provider [phone] Encounter Details Date Type Department Care Team (Late st Contact Info) Description 07/08/2016 10:30 AM EST Office Visit [place] [address] Jennifer Amaro MD [facility] [place] [address] Kidney replaced by transplant Social History Tobacco [...] Sign Reading Time Taken Comments Blood Pressure 124/73 07/08/2016 9:19 AM EST Pulse 46 07/08/2016 9:19 AM EST Temperature 36.5 ??C (97.7 ??F) 07/08/2016 9:19 AM ES T Respiratory Rate 12 07/08/2016 9:19 AM EST Oxygen Saturation 92% 07/08/2016 9:19 AM EST Inhaled Oxygen Concentration - - Weight 92.4 kg (203 lb 9.6 oz) 07/08/2016 9:19 A M EST Height - - Body Mass Index 28.4 06/23/2016 5:52 AM EST documented in this encounter Progress Notes * Jennifer Amaro MD - 07/08/2016 10:30 AM EST Follow-Up: Transplant Clinic Date: 07/08/2016 Patient: Cody Bolden Date of Transplant: 09/16/2015 (Kidney) Transplant Surgeon: History of Present Illness: Mr. Bolden returned for a routine followup appointment in the Transplant clinic today. He is doing very well and has had no recent evidence of urinary tract infections. Denies dysuria, cloudy urine, fevers. All urologic hardware is out at this stage and he will complete his antibiotic course in two days. He believes that he is doing well with PO intake and tells me that he continues to drink approximately 3L daily. Current Meds: Current Outpatient Prescriptions Medication Sig Dispense Refill ??? tacrolimus (PROGRAF) 1 mg Capsule Take [...] Take 75 mg by mouth daily. ??? oxyCODONE (ROXICODONE) 5 mg Tablet Take [...] 2 times daily. No current facility-administered medications for this visit. Problem List: Patient Active Problem List Diagnosis Code ??? [...] organ transplant Z48.298 ??? Sepsis A41.9 Past Medical History: Past Medical History Diagnosis Date ??? Back pain ??? Colon polyp ??? CVA (cerebral vascular accident) Per report but no deficits ??? ESRD (end stage renal disease) ??? GERD (gastroesophageal reflux disease) ??? HTN (hypertension) ??? Microhematuria ??? Type 2 diabetes mellitus Past Surgical History: Past Surgical History Procedure Laterality Date ??? Pro anastomosis, av, any site Left 05/09/2015 AV FISTULA CREATION, DIRECT HEMODIALYSIS, ANY SITE, EG ASHWINI FISTULA UPPER EXTREMITY performed by Jennifer Amaro MD at [facility] MAIN OR ??? Pro transplantation of kidney N/A 09/16/2015 @KIDNEY TRANSPLANT, WITHOUT RECIPIENT NEPHRECTOMY performed by Franko Larkin MD at [facility] MAIN OR ??? Pro transplant, prep cadaver renal graft N/A 09/16/2015 @PREPARATION CADAVERIC RENAL ALLOGRAFT performed by Franko Larkin MD at [facility] MAIN OR ??? N/A 09/16/2015 ORGAN ACQUISITION RENAL, CADAVERIC performed by Franko Larkin MD at [facility] MAIN OR ??? Pro reimplant ureter, single ureter Left 05/20/2016 @URETERONEOCYSTOSTOMY ANASTOMOSIS OF SINGLE URETER TO BLADDER performed by Santosh Arredondo MD at [facility] OR ??? Pro reimplant ureter, single ureter N/A 05/20/2016 @URETERONEOCYSTOSTOMY ANASTOMOSIS OF SINGLE URETER TO BLADDER performed by Jennifer Amaro MD at [facility] OR Family History: No family history on file. Social History: Social History Substance Use Topics ??? Smoking status: Former Smoker Types: Cigars Quit date: 01/02/2015 ??? Smokeless tobacco: Never Used Comment: cigars, one weekly ??? Alcohol use No ROS: Review of Systems Constitutional: Negative for chills and fever. Genitourinary: Negative for difficulty urinating and dysuria. All other systems reviewed and are negative. Vital Signs: BP 124/73 (BP Location (NBP): Right arm, Patient Position: Sitting, BP Cuff Sizes: Large Adult (32-43 cm)) Pulse (!) 46 Temp 36.5 ??C (97.7 ??F) (Oral) Resp 12 Wt 92.4 kg (203 lb 9.6 oz)SpO2 92% BMI 28.4 kg/m2 Physical Exam: Objective: Vital signs (most recent): Blood pressure 124/73, pulse 46, temperature 36.5 ??C (97.7 ??F), temperature source Oral, resp. rate 12, weight 92.4 kg (203 lb 9.6 oz), SpO2 92 %. General appearance: Comfortable, well-appearing, in no acute distress and not in pain. Lungs: Normal respiratory rate and normal effort. Abdomen: Abdomen is soft. No distension. Tenderness: There is no abdominal tenderness tenderness. Wound: Clean. There is no dehiscence or hernia. Drain: No Labs: Lab Results Component Value Date CREATININE 1.28 07/08/2016 K 3.9 07/08/2016 GLUCOSE 258 (H) 07/08/2016 HCT 41.5 07/08/2016 HGB 14.7 07/08/2016 WBC 8.6 07/08/2016 PHOS 2.8 07/08/2016 Assessment: --Graft function: creatinine level is stable at 1.2. Excellent graft function, no concerns today. He is drinking 3 L fluids daily and will continue to do this. He does not feel that he is having any difficulty voiding. All urologic hardware is out and he has had no recent symptoms of UTI. He completes his antibiotic course in two days. UA does not show evidence of UTI today. -- Immunosuppression reviewed and adjusted: Prograf: tacrolimus level is pending on , await results for dosing adjustments Prednisone: none Cellcept: 250 mg po bid -- Hepatitis C: he is on the schedule to see Dr. Horvath in the ID clinic on 07/30. I will contactDr. Horvath to notify him that there is no contraindication from a transplant standpoint to proceed with his hep C therapy. -- Hypertension management: no adjustment was required today -- Electrolytes: Calcium and phosphorus balance reviewed. Magnesium balance reviewed. No adjustment was required today -- RTC: He will transition to Dr. Eagle's clinic at this stage and will return for his next appointment in one month. MD: JENNIFER AMARO MD * Torie Edmonds MD - 07/08/2016 10:30 AM EST Follow-Up: Transplant Clinic Date: 07/08/2016 Patient: Cody Bolden Date of Transplant: 09/16/2015 (Kidney) Transplant Surgeon: History of Present Illness: Cody Bolden is s/p Kidney transplant on 09/16/2015 (Kidney). He presents for evaluation and management after his transplant procedure. He developed a ureteral stricture and underwent series of ureteral dilation attempts with NU stenting across the stricture. He eventually underwent Boari flap reconstruction on 05/20/2016. Post-op he developed a UTI after his indwelling stent was removed. He was discharged again home on 06/25 on PO Cipro treatment of Klebsiella UTI. Patient reports no issues since discharge. Was shoveling snow over the weekend and notes some increased incisional pain. Denies any fevers or chills. No dysuria. Current Meds: Current Outpatient Prescriptions Medication Sig Dispense Refill ??? tacrolimus (PROGRAF) 1 mg Capsule Take [...] Take 75 mg by mouth daily. ??? oxyCODONE (ROXICODONE) 5 mg Tablet Take [...] 2 times daily. No current facility-administered medications for this visit. Problem List: Patient Active Problem List Diagnosis Code ??? [...] organ transplant Z48.298 ??? Sepsis A41.9 Past Medical History: Past Medical History Diagnosis Date ??? Back pain ??? Colon polyp ??? CVA (cerebral vascular accident) Per report but no deficits ??? ESRD (end stage renal disease) ??? GERD (gastroesophageal reflux disease) ??? HTN (hypertension) ??? Microhematuria ??? Type 2 diabetes mellitus Past Surgical History: Past Surgical History Procedure Laterality Date ??? Pro anastomosis, av, any site Left 05/09/2015 AV FISTULA CREATION, DIRECT HEMODIALYSIS, ANY SITE, EG ASHWINI FISTULA UPPER EXTREMITY performed by Jennifer Amaro MD at [facility] OR ??? Pro transplantation of kidney N/A 09/16/2015 @KIDNEY TRANSPLANT, WITHOUT RECIPIENT NEPHRECTOMY performed by Franko Larkin MD at [facility] OR ??? Pro transplant, prep cadaver renal graft N/A 09/16/2015 @PREPARATION CADAVERIC RENAL ALLOGRAFT performed by Franko Larkin MD at [facility] OR ??? N/A 09/16/2015 ORGAN ACQUISITION RENAL, CADAVERIC performed by Franko Larkin MD at [facility] OR ??? Pro reimplant ureter, single ureter Left 05/20/2016 @URETERONEOCYSTOSTOMY ANASTOMOSIS OF SINGLE URETER TO BLADDER performed by Santosh Arredondo MD at [facility] MA[facility] OR ??? Pro reimplant ureter, single ureter N/A 05/20/2016 @URETERONEOCYSTOSTOMY ANASTOMOSIS OF SINGLE URETER TO BLADDER performed by Jennifer Amaro MD at [facility] OR Family History: No family history on file. Social History: Social History Substance Use Topics ??? Smoking status: Former Smoker Types: Cigars Quit date: 01/02/2015 ??? Smokeless tobacco: Never Used Comment: cigars, one weekly ??? Alcohol use No ROS: Review of Systems As above. Otherwise 10 systems normal Vital Signs: BP 124/73 (BP Location (NBP): Right arm, Patient Position: Sitting, BP Cuff Sizes: Large Adult (32-43 cm)) Pulse (!) 46 Temp 36.5 ??C (97.7 ??F) (Oral) Resp 12 Wt 92.4 kg (203 lb 9.6 oz)SpO2 92% BMI 28.4 kg/m2 Physical Exam: Objective NAD Regular Soft, NT, ND, well healing lower midline incision. Fullness over left sided renal transplant. No palpable hernia defect. Non tender Drain: No Labs: Lab Results Component Value Date CREATININE 1.28 07/08/2016 K 3.9 07/08/2016 GLUCOSE 258 (H) 07/08/2016 HCT 41.5 07/08/2016 HGB 14.7 07/08/2016 WBC 8.6 07/08/2016 PHOS 2.8 07/08/2016 Assessment: Cody Bolden is doing well after transplant. During the visit, I examined his wound, reviewed his immunosuppression, discussed pain control, and instructed Mr. Cody Bolden regarding hydration and nutrition. Plan: No infectious symptoms currently. Finishing 2 week course of ABXs. Patient to see Dr. Horvath at the end of the month to discuss Hep C treatment. Graft well functioning. Encouraged to continue to drink 3L PO a day. 1. Other Category: Prograf: Yes, 07/06 level pending for today. Will call patient with adjustments Prednisone: No MMF: Yes, 250' 2. Blood Pressure management: well controlled 3. Calcium and phosphorus balance reviewed. Continue supplementation: well controlled 4. Magnesium balance reviewed. Yes 5. Pharmacy needs addressed. No concerns today. 6. Return to clinic: 4 weeks MD: TORIE EDMONDS MD documented in this encounter Plan of Treatment Upcoming Encounters Date Type Department Care Team (Late st Contact Info) Description 04/15/2024 10:00 AM EDT Hospital Encounter [place] [address] Arrived documented as of this encounter Results * Urinalysis with reflex Culture (07/08/2016 8:57 AM EST) Glucose, Urine Dipstick Negative Negative mg/dL [facility] Protein, Urine Dipstick Negative Negative mg/dL [facility] Bilirubin, [...] [facility] Blood, Urine Dipstick Negative Negative mg/dL [facility] Ketone, Urine Dipstick Negative Negative mg/dL [facility] Nitrite, Urine Dipstick Negative Negative [facility] Leukocytes, Urine Dipstick Negative Negative [facility] Appearance, Urine Dipstick Clear Clear [facility] Specific [place] Urine Automated 1.020 1.002 - 1.030 [facility] Color, Urine Dipstick Yellow Yellow [facility] RBC, Urine 2 0 - 3 /HPF [facility] WBC, Urine 3 0 - 3 /HPF [facility] Reflex to Culture No [facility] Urine specimen obtained by clean catch procedure (specimen) 07/08/2016 8:57 AM EST 07/08/2016 9:02 AM EST Narrative Resulting Agency Comment Spec In Lab Jennifer Amaro MD URINE ORDERABL ES Performing Organization Address [facility] Co de Phone Number [facility] [place] [address] * (ABNORMAL) Protein/Creatinine Ratio, urine (07/08/2016 8:57 AM EST) Creatinine, Urine 124 mg/dL [facility] Protein, Urine 15(H) 0 - 12 mg/dL [facility] Protein / Creatinine Ratio, Urine 0.1 ratio [facility] Urine specimen (specimen) 07/08/2016 8:57 AM EST 07/08/2016 9:03 AM EST Narrative Resulting Agency Comment Spec In Lab Jennifer Amaro MD URINE ORDERABL ES Performing Organization Address [facility] Co de Phone Number [facility] [place] [address] * Uric acid (07/08/2016 8:56 AM EST) Uric Acid 7.1 3.5 - 8.5 mg/dL [facility] Blood specimen (specimen) 07/08/2016 8:56 AM EST 07/08/2016 9:03 AM EST Narrative Resulting Agency Comment Spec In Lab Jennifer Amaro MD CHEMISTRY ORDE RABLES Performing Organization Address [facility] Co de Phone Number [facility] [place] [address] * Tacrolimus level (07/08/2016 8:56 AM EST) Tacrolimus 5.5 ng/mL [facility] Comment: Trough therapeutic: ??5-15 ng/mL Performed by ultra-performance liquid chromatography tandem mass spectrometry (UPLCMS/MS). Blood specimen (specimen) 07/08/2016 8:56 AM EST 07/08/2016 10:54 AM EST Narrative Resulting Agency Comment Spec In Lab Jennifer Amaro MD CHEMISTRY ROCHELLE JENNINGS Performing Organization Address [facility] Co de Phone Number [facility] [place] [address] * Reticulocyte Count (07/08/2016 8:56 AM EST) Reticulocyte % 2.3 0.7 - 2.6 % [facility] Retic Abs # 0.110 0.030 - 0.120 x10(6)/mcL [facility] Immature Retic% 4.9 0.0 - 15.6 % [facility] Reticulated Hgb 37.2 31.3 - 40.2 pg [facility] Blood specimen (specimen) 07/08/2016 8:56 AM EST 07/08/2016 9:03 AM EST Narrative Resulting Agency Comment Spec In Lab Jennifer Amaro MD HEMATOLOGY ORD ERABLES Performing Organization Address [facility] Co de Phone Number [facility] [place] [address] * Phosphorus (07/08/2016 8:56 AM EST) Phosphorus 2.8 2.5 - 4.5 mg/dL [facility] Blood specimen (specimen) 07/08/2016 8:56 AM EST 07/08/2016 9:03 AM EST Narrative Resulting Agency Comment Spec In Lab Jennifer Amaro MD CHEMISTRY ROCHELLE JENNINGS Performing Organization Address [facility] Co de Phone Number [facility] [place] [address] * (ABNORMAL) Magnesium (07/08/2016 8:56 AM EST) Magnesium 0.62(L) 0.69 - 1.07 mmol/L [facility] Blood specimen (specimen) 07/08/2016 8:56 AM EST 07/08/2016 9:03 AM EST Narrative Resulting Agency Comment Spec In Lab Jennifer Amaro MD CHEMISTRY ROCHELLE JENNINGS [facility] Organization Address City/State/ZIP Co de Phone Number [facility] [place] [address] * (ABNORMAL) Comprehensive metabolic panel (non-fasting) (07/08/2016 8:56 AM EST) Glucose 258(H) 65 - 199 mg/dL [facility] Comment:Diabetes: >=200 mg/d L plus symptoms Blood Urea Nitrogen 14 10 - 20 mg/dL [facility] Creatinine 1.28 0.80 - 1.50 mg/dL [facility] Comment: Please note that the pediatric reference intervals supplied above were not validated at [facility] [place]. Results from pediatric patients should be interpreted in conjunction to the patient's age, height and muscle mass. Sodium 136 135 - 145 mmol/L [facility] Potassium 3.9 3.5 - 5.0 mmol/L [facility] Comment: Please note: ??Patients with WBC >100,000 may have falsely elevated Potassium levels. ??For accurate Potassium quantification in these patients send serum separator tube (gold top) for subsequent determinations. ??Contact the Clinical Chemistry Laboratory if there are any questions. Chloride 97(L) 98 - 107 mmol/L [facility] Carbon Dioxide 23 22 - 31 mmol/L [facility] Anion Gap 16(H) 5 - 15 mmol/L [facility] Calcium 9.7 8.5 - 10.5 mg/dL [facility] Protein, Total 7.7 6.1 - 8.0 gm/dL [facility] Albumin 4.0 3.2 - 5.2 gm/dL [facility] Aspartate Aminotransferase 23 0 - 39 unit/L [facility] Alanine Aminotransferase 24 0 - 55 unit/L [facility] Alkaline Phosphatase 82 40 - 120 unit/L [facility] Bilirubin, Total 1.6(H) 0.2 - 1.3 mg/dL [facility] Bilirubin, Direct 0.3 0.0 - 0.3 mg/dL [facility] Est Glomerular Filtration Rate 56(L) >=60 [facility] Comment: This [...] the following links into your internet browser. [email or web address] Blood specimen (specimen) 07/08/2016 8:56 AM EST 07/08/2016 9:03 AM EST Narrative Resulting Agency Comment Spec In Lab Jennifer Amaro MD CHEMISTRY ROCHELLE JENNINSG [facility] [place] [id number] * Cholesterol, total (07/08/2016 8:56 AM EST) Cholesterol, Total 151 <=239 mg/dL [facility] Lipid Interpretation See Note [facility] Comment: Lipid management should be guided by a patient? s ASCVD risk, goals and preferences. ACC/AHA Guidelines recommend high intensity statin if clinical ASCVD or LDL greater than or equal to 190 mg/dL. http://circ.ahajournals.org/content/early/.cir.2135756568.18104.7a Adults aged 40-75 with LDL 70-189 mg/dL should have their 10 year ASCVD risk estimated with the ACC/AHA ASCVD risk junior estimator http://tools.acc.org/IVYDK-Jjhb-Erjyynmnt/ Statin should be discussed if risk greater [...] Lab Jennifer Amaro MD CHEMISTRY ROCHELLE JENNINGS [facility] [place] [id number] documented in this encounter Visit Diagnoses Diagnosis Kidney replaced by transplant documented in this encounter Care Teams Brand Ambassadors Promotional Sales Relationship Specialty Start Date End Date Urbano Denis DO [address] [place] [address] PCP - General 09/03/12 03/17/22 Ruchi Valles RN Nurse Clinic Transplant Surgery 07/30/15 documented as of this encounter
--- OUTSIDE RECORDS SUMMARY | 2024-02-14 11:28 | XMS_ITS | Encounter Summary ---
Author Organization [facility] [place] [address] Care Team Providers Care Director Global Market Research Name Role Phone Urbano Denis DO Primary Care Provider [phone] Encounter Details Date Type Department Care Team (Late st Contact Info) Description 06/10/2016 Abstract [place] [address] Chapin Lehman, NURSE TRANSITIONAL Social History Tobacco Use Types Packs/Day Years [...] AM EDT Hospital Encounter Non-[place] [address] Arrived documented as of this encounter Visit Diagnoses Not on filedocumented in this encounter Care Teams Director Global Market Research Relationship Specialty Start Date End Date Urbano Denis DO [address] [place] [address] PCP - General 09/03/12 03/17/22 Hai STANLEY,Ruchi Nurse Clinic Transplant Surgery 07/30/15 documented as of this encounter
--- OUTSIDE RECORDS SUMMARY | 2024-02-14 11:28 | XMS_ITS | Encounter Summary ---
Author Organization [place] [id number] Care Team Providers Care Financial Aid Director Name Role Phone Urbano Denis DO Primary Care Provider Reason for Referral * Diagnostic Test (Routine) - Closed Specialty Diagnoses / Procedures Referred By Contac t Referred To Contact Radiology Diagnoses Ureteral stricture Procedures IR all procedures Santosh Arredondo MD [facility] [place] [address] [place] [address] Referral ID Status Reason Start Date Expiration Date V isits Requested Visits Authorized [id number] Closed Specialty Service Requested 06/03/2016 06/03/2017 1 1 Reason for Visit * Diagnostic Test (Routine) - Closed Specialty Diagnoses / Procedures Referred By Contac t Referred To Contact Radiology Diagnoses Ureteral stricture Procedures IR all procedures Santosh Arredondo MD [facility] [place] [address] [place] [address] Referral ID Status Reason Start Date Expiration Date V isits Requested Visits Authorized [id number] Closed Specialty Service Requested 06/03/2016 06/03/2017 1 1 Encounter Details Date Type Department Care Team (Latest Contact Info) Description 06/09/2016 6:46 AM EST - 06/09/2016 11:59 PM EST Hospital Encounter Radiology [facility] [place] [address] Santosh Arredondo MD [facility] [place] [address] Ureteral stricture Discharge Disposition: Home Social History Tobacco Use [...] Sign Reading Time Taken Comments Blood Pressure 187/87 06/09/2016 8:22 AM EST Pulse 73 06/09/2016 7:49 AM EST Temperature 36.4 ??C (97.6 ??F) 06/09/2016 8:22 AM ES T Respiratory Rate 16 06/09/2016 8:00 AM EST Oxygen Saturation 97% 06/09/2016 8:22 AM EST Inhaled Oxygen Concentration - - Weight - - Height - - Body Mass Index - - documented in this encounter Discharge Instructions * Discharge Instructions* Yoselin Tomlin RN - 06/09/2016 8:25 AM EST [facility] Vascular and Interventional Radiology Discharge Instructions For Your Puncture Site Activity and Diet: ??? Go Home and rest quietly for the remainder of the day. You may resume your normal activities tomorrow. ??? Resume your usual diet after the procedure. Bandage: There is a sterile dressing over the puncture site consisting of small gauze with a clear dressing (Tegaderm). This dressing should be left in place for 24 hours. If the clear dressing becomes loose you should place tape over the edges to secure it in place. Bathing: Do not take a shower until 24 hours after your procedure; after this time you may shower with the dressing in place, then remove it and pat your skin dry. You may use a bandaid to cover the site if there is any drainage. When to call your healthcare provider: ??? If you notice bleeding or a bulge from the puncture site, you should apply firm pressure over the site for 10-15 minutes, keeping the site covered and call your doctor. If you are still bleeding after 10-15 minutes, reapply pressure, and have someone drive you to the nearest Emergency Department, or call 911. ??? If you develop pain, redness, drainage or swelling at or around the puncture site. ??? If you develop fever equal to or greater than 101F and/or shaking chills. When to call the Interventional Radiology Department: Please call with any questions or concerns. If it is during regular office hours, please call [phone]. If it is after regular office hours, or on weekends or holidays, please call [phone] and ask to speak to the Regulatory Compliance Engineer applications engineer for Interventional Radiology. You may resume your regular diet as tolerated. IV site -- slight redness, or tenderness is normal, you can use a warm compress. If tenderness and redness increases or foul drainage occurs, please contact your M. D. Revised 07/20/15 documented in this encounter Medications at Time of Discharge Medication Sig Dispensed Refills Start Date End Date aspirin 81 mg Tablet, Chewable Take 81 mg by mouth daily. 30 tablet 3 05/28/2016 06/24/2016 Magnesium Gluconate 27 mg (500 mg) Tablet Take 6 tablets at breakfast and at dinner 360 tablet 3 05/28/2016 09/09/2017 potassium phosphate, monobasic, (K-PHOS) 500 mg Tablet, Soluble Take 3 tabs at lunch time and 3 tabs at bedtime 180 tablet 3 05/28/2016 06/25/2016 tacrolimus (PROGRAF) 1 mg Capsule Take 1 capsule by mouth daily for 180 days. 60 capsule 2 05/28/2016 06/25/2016 sulfamethoxazole-trime thoprim (BACTRIM;SEPTRA) 400-80 mg Tablet Take 1 tablet by mouth daily. 60 tablet 2 05/28/2016 03/25/2017 oxyCODONE (ROXICODONE) 5 mg Tablet Take 1 tablet by mouth every 4 hours as needed for Pain. 30 tablet 05/28/2016 06/18/2016 tacrolimus (PROGRAF) 0.5 mg Capsule Take 1 capsule by mouth nightly for 180 days. 60 capsule 2 05/24/2016 06/25/2016 levothyroxine (SYNTHROID) 100 mcg Tablet Take 100 [...] by mouth 2 times daily. 01/03/2016 12/10/2016 tamsulosin (FLOMAX) 0.4 mg Capsule, Sust. Release 24 hr Take 1 capsule by mouth nightly. 30 capsule 11 11/15/2015 06/18/2016 calciTRIol (ROCALTROL) 0.5 mcg Capsule Take 1 capsule by mouth daily. 30 capsule 11 11/15/2015 06/18/2016 documented as of this encounter Progress Notes * Therese Carpio RN - 06/09/2016 8:04 AM EST 0740 To procedure room 3 via stretcher. Onto table in supine position. BP cuff and pulse ox on patient. Local only. * Alessandro Obando MD - 06/09/2016 6:56 AM EST IR PRE-PROCEDURE NOTE ADDENDUM Name: Ethel Akins Date of : 1950 Procedure: Left antegrade nephrostogram, possible PCN removal Physical Examination: Chest: clear to auscultation, no wheezes, rales or rhonchi, symmetric air entry Heart: normal rate and regular rhythm, S1 and S2 normal Abdomen: midline scar mildly tender; PCN @ LLQ marked - to cap The planned procedure, its benefits/risks and alternatives were discussed with the patient and consent was given - see scanned docs from 04/30/16. Alessandro Obando * Williams Osullivan DO - 06/06/2016 11:11 AM EST Images from the original note were not included. PRE-PROCEDURE VIR NOTE: Referring Physician: Santosh Arredondo PCP: Urbano Denis DO Planned Procedure: Left PCN removal Procedure Indication: Presenting Diagnosis/ Complaint: Ethel Akins is a 65 y.o. male with history of DM2, HTN, HCV,and nodular glomerulosclerosis who is s/p left lower quadrant donor renal transplant on 09/16/2015. Post op course was complicated by recurrent UTIs. Renal transplant US on 12/28/2015 showed moderate pelvicaliectasis in the setting of rising creatinine. LLQ PCN was placed in IR on 12/29/15. Brief IR history: 12/29/15: LLQ transplant nephrostomy tube placement (8-Fr locking loop PCN) 01/01/16: Percutaneous nephrostomy check, ureteral stricture balloon dilatation (#1/3), nephroureterostomy tube placement ?? 02/01/16: Balloon dilation of mid ureteral stricture to 7 mm (#2/3). Nephrostomy tube up sized to 10.2 Fr. 03/04/16: Balloon dilation (7mm) of stenosis of the distal 2-3 cm the ureter (#3/3), severe focally. 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 Nephrostomy tube was capped at discharge on 05/28/16. Past Medical/Surgical History Patient Active Problem List Diagnosis Code ??? [...] ??? Ureteral stricture N13.5 ??? Dehydration E86.0 Past Medical History Diagnosis Date ??? Back [...] performed by Que Amaro MD at [facility] OR ??? Pro transplantation of kidney N/A 09/16/2015 @KIDNEY TRANSPLANT, WITHOUT RECIPIENT NEPHRECTOMY performed by Franko Larkin MD at [facility] OR ??? Pro transplant, prep cadaver renal graft N/A 09/16/2015 @PREPARATION CADAVERIC RENAL ALLOGRAFT performed by Frakno Larkin MD at [facility] OR ??? N/A 09/16/2015 ORGAN ACQUISITION RENAL, CADAVERIC performed by Franko Larkin MD at [facility] OR ??? Pro reimplant ureter, single ureter Left 05/20/2016 @URETERONEOCYSTOSTOMY ANASTOMOSIS OF SINGLE URETER TO BLADDER performed by Santosh Arredondo MD at [facility] OR ??? Pro reimplant ureter, single ureter N/A 05/20/2016 @URETERONEOCYSTOSTOMY ANASTOMOSIS OF SINGLE URETER TO BLADDER performed by Que Amaro MD at [facility] OR Medications: Current Outpatient Prescriptions on File Prior to Encounter Medication Sig Dispense Refill ??? aspirin 81 mg Tablet, Chewable Take [...] by mouth daily. 60 tablet 2 ??? oxyCODONE (ROXICODONE) 5 mg Tablet Take 1 tablet by mouth every 4 hours as needed for Pain. (Patient not taking: Reported on 06/03/2016) 30 tablet 0 ??? tacrolimus (PROGRAF) 0.5 mg Capsule Take [...] 1 capsule by mouth 2 times daily. ??? tamsulosin (FLOMAX) 0.4 mg Capsule, Sust. Release 24 hr Take 1 capsule by mouth nightly. 30 capsule 11 ??? calciTRIol (ROCALTROL) 0.5 mcg Capsule Take 1 capsule by mouth daily. 30 capsule 11 No current facility-administered medications on file prior to encounter. Allergies: Review of patient's allergies indicates no known allergies. Social History and Habits: Social History Social [...] ??? Not on file Social History Narrative Significant Family History: No family history on file. Physical Exam: Pending Labs: Lab Results Component Value Date WBC 14.0 (H) 06/03/2016 ANC 2.99 12/07/2015 HCT 40.7 06/03/2016 PLATELET 287 06/03/2016 INR 1.0 05/19/2016 BUN 16 06/03/2016 CREATININE 1.24 06/03/2016 ALKPHOS 63 05/13/2016 AST 18 05/13/2016 ALBUMIN 4.0 06/03/2016 BILIDIR 0.4 (H) 05/13/2016 BILITOT 2.4 (H) 05/13/2016 ALT 17 05/13/2016 PROT 7.8 05/13/2016 Prior relevant imaging: Assessment/Plan: Will proceed with Left PCN removal. Patient Position: supine Biopsy/drain access site: Existing PCN Medications to discontinue (and days): [none] Prophylaxis: Cipro 500 mg PO Labs: [none] General anesthesia required: [no] * Therese Carpio RN - 06/04/2016 4:20 PM EST ANGIO NURSING DATABASE Name: ETHEL AKINS Date of : 1950 AGE 65 y.o. Address: [address] [place] [address] (home) [phone] (work) Mobile: Telephone Information: Referring Provider: Santosh Arredondo REASON FOR VISIT: Where will study be performed? [facility] Laterality Left Reason for exam and clinical history: nephrostomy tube removal Exam/Procedure requested: remova Is the patient taking any anticoagulants and/or antiplatelet meds? No Is the patient on anticoagulant / anitplatelet therapy ? No Anticoagulant/antiplatelet/herbal med. stopped on per MD order. No Known Allergies Pertinent PMH: Patient Active Problem List Diagnosis Code ??? [...] ??? Ureteral stricture N13.5 ??? Dehydration E86.0 Pertinent PSH: Past Surgical History Procedure Laterality Date ??? Pro anastomosis, av, any site Left 05/09/2015 AV FISTULA CREATION, DIRECT HEMODIALYSIS, ANY SITE, EG ASHWINI FISTULA UPPER EXTREMITY performed by Que Amaro MD at [facility] OR ??? Pro transplantation of kidney N/A 09/16/2015 @KIDNEY TRANSPLANT, WITHOUT RECIPIENT NEPHRECTOMY performed by Franko Larkin MD at [facility] OR ??? Pro transplant, prep cadaver renal graft N/A 09/16/2015 @PREPARATION CADAVERIC RENAL ALLOGRAFT performed by Franko Larkin MD at [facility] OR ??? N/A 09/16/2015 ORGAN ACQUISITION RENAL, CADAVERIC performed by Franko Larkin MD at [facility] OR ??? Pro reimplant ureter, single ureter Left 05/20/2016 @URETERONEOCYSTOSTOMY ANASTOMOSIS OF SINGLE URETER TO BLADDER performed by Santosh Arredondo MD at [facility] OR ??? Pro reimplant ureter, single ureter N/A 05/20/2016 @URETERONEOCYSTOSTOMY ANASTOMOSIS OF SINGLE URETER TO BLADDER performed by Que Amaro MD at [facility] OR Date/Procedure? Med's given/comments 01/08/2015: Tunneled HD catheter? Versed 2.5 mg, Fentanyl 125 mcg. Tolerated well? 07/31/15 Left Fistulogram?Versed 2 mgs iv., Fentanyl 100 mcgs iv.? 12/29/15 L PCN? Fentanyl 75mcg/ Versed1.5mg? 01/01/2016 Left nephrostogram, Left NU placement?? Fentanyl 150 Mcg IV, Versed 2 Mg IV?? 02/01/16 Left nephrostogram with exchange and upsize of nephroureteral tube to 10.2 Fr and balloon angioplasty Versed 2 mg IV, fentanyl 100 mcg IV ??03/04/16 Left nephrostogram with??ballooning and exchange of 10.2 Fr nephroureteral tube. Versed 3mg IV; Fentanyl 150 mcg IV.?03/25/16 Left nephrostogram?? Cipro 500 mg po, fentanyl 100 mcg ,versed 2 mg iv 06/09/2016 Removal of left antegrade nephroureteral tube. Cipro 500 mg PO. Local only. ? Laboratory Results: Lab Results Component Value Date INR 1.0 05/19/2016 Lab Results Component Value Date CREATININE 1.24 06/03/2016 Lab Results Component Value Date K 4.1 06/03/2016 Lab Results Component Value Date PLATELET 287 06/03/2016 Medications: Prior to Admission medications Medication Sig Start Date End Date Taking? Authorizing Provider aspirin 81 mg Tablet, Chewable Take 81 mg by mouth daily. 05/28/16 Victor Manuel Torre MD Magnesium Gluconate 27 mg (500 mg) Tablet Take 6 tablets at breakfast and at dinner 05/28/16 Victor Manuel Torre MD potassium phosphate, monobasic, (K-PHOS) 500 mg Tablet, Soluble Take 3 tabs at lunch time and 3 tabs at bedtime 05/28/16 Victor Manuel Torre MD tacrolimus (PROGRAF) 1 mg Capsule Take 1 capsule by mouth daily for 180 days. 05/28/16 11/24/16 Victor Manuel Torre MD sulfamethoxazole-trimethoprim (BACTRIM;SEPTRA) 400-80 mg Tablet Take 1 tablet by mouth daily. 05/28/16 Victor Manuel Torre MD oxyCODONE (ROXICODONE) 5 mg Tablet Take 1 tablet by mouth every 4 hours as needed for Pain. Patient not taking: Reported on 06/03/2016 05/28/16 Victor Manuel Torre MD meTOPROLOL tartrate (LOPRESSOR) 50 mg Tablet Take 1 tablet by mouth 2 times daily. 05/27/16 05/27/17 Que Amaro MD tacrolimus (PROGRAF) 0.5 mg Capsule Take 1 capsule by mouth nightly for 180 days. 05/24/16 11/20/16 Francois Bowie MD levothyroxine (SYNTHROID) 100 mcg Tablet Take 100 mcg by mouth daily. 04/22/16 PROVIDER, HISTORICAL acetaminophen (TYLENOL) 500 mg Tablet Take 1,000 mg by mouth every 6 hours as needed for Pain. PROVIDER, HISTORICAL omeprazole (PRILOSEC) 20 mg Capsule, Delayed Release(E.C.) Take 20 mg by mouth daily as needed. PROVIDER, HISTORICAL mycophenolate (CELLCEPT) 250 mg Capsule Take 1 capsule by mouth 2 times daily. 01/03/16 Victor Manuel Torre MD tamsulosin (FLOMAX) 0.4 mg Capsule, Sust. Release 24 hr Take 1 capsule by mouth nightly. 11/15/15 11/14/16 Que Amaro MD calciTRIol (ROCALTROL) 0.5 mcg Capsule Take 1 capsule by mouth daily. 11/15/15 11/14/16 Que mAaro MD documented in this encounter Procedure Notes * Santosh Ellsworth MD - 06/09/2016 8:19 AM EST IR PROCEDURE NOTE Procedure: Nephrostomy tube check and removal. Indication for Procedure: Per Ethel Gonzales Yuan is a 65 y.o. male with history of DM2, HTN, HCV, and nodular glomerulosclerosis who is s/p left lower quadrant donor renal transplant on 09/16/2015. Post op course was complicated by recurrent UTIs. Renal transplant US on 12/28/2015 showed moderate pelvicaliectasis in the setting of rising creatinine. LLQ PCN was placed in IR on 12/29/15. ?? Brief IR history: 12/29/15: LLQ transplant nephrostomy tube placement (8-Fr locking loop PCN) 01/01/16: Percutaneous nephrostomy check, ureteral stricture balloon dilatation (#1/3), nephroureterostomy tube placement ?? 02/01/16: Balloon dilation of mid ureteral stricture to 7 mm (#2/3). Nephrostomy tube up sized to 10.2 Fr. 03/04/16: Balloon dilation (7mm) of stenosis of the distal 2-3 cm the ureter (#3/3), severe focally. 04/30/16: Removal of existing Left NU stent, placement of a 10 cm 4.7 Fr JJ ureteral stent, Placement of 10.2 Fr nephrostomy tube ?? 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 Nephrostomy tube was capped at discharge on 05/28/16. ?? Procedure events and findings: After obtaining informed consent, patient was positioned supine on procedure table and sterile prep and drape performed, maximum sterile barrier technique was used throughout. The IR nurse continuously monitored pulse, pressure, and oxygen saturation. Contrast injection via the existing catheter filled transplant renal collecting system with prompt flow to bladder. The catheter was cut and a guide wire was advanced into the collecting system. Existing catheter removed over wire with double J ureteral stent left in place, extending from renal collecting system to bladder. Medications: Antibiotic Prophylaxis: Cipro 500mg PO Est Blood Loss: <5cc. Complications: No immediate. Impression: 1. No evidence of obstruction between transplant renal collecting system and bladder. 2. Nephrostomy tube removed, ureteral stent remains in place. Resident/Fellow: None. Attending: Dr. Seng Lange performed this procedure. documented in this encounter Plan of Treatment Upcoming Encounters Date Type Department Care Team (Late st Contact Info) Description 04/15/2024 10:00 AM EDT Hospital Encounter [place] [address] Arrived documented as of this encounter Procedures Procedure Name Priority Date/Time Associated Diagnosis Comments IR ALL PROCEDURES Routine 06/09/2016 8:23 AM EST Ureteral stricture documented in this encounter Results * IR all procedures (06/09/2016 8:23 AM EST) Anatomical Region Laterality Modality Abdomen X-Ray Angiograph y Narrative 06/09/2016 8:34 AM EST IR PROCEDURE NOTE ?? Procedure: Nephrostomy tube check and removal. ?? Indication for Procedure: Per Dr. Osullivan, Ethel Akins is a 65 y.o. male with history of DM2, HTN, HCV, and nodular glomerulosclerosis who is s/p left lower quadrant donor renal transplant on 09/16/2015. Post op course was complicated by recurrent UTIs. Renal transplant US on 12/28/2015 showed moderate pelvicaliectasis in the setting of rising creatinine. LLQ PCN was placed in IR on 12/29/15. ? Brief IR history: 12/29/15: LLQ transplant nephrostomy tube placement (8-Fr locking loop PCN) 01/01/16: Percutaneous nephrostomy check, ureteral stricture balloon dilatation (#1/3), nephroureterostomy tube placement ?? 02/01/16: Balloon dilation of mid ureteral stricture to 7 mm (#2/3). Nephrostomy tube up sized to 10.2 Fr. 03/04/16: Balloon dilation (7mm) of stenosis of the distal 2-3 cm the ureter (#3/3), severe focally. 04/30/16: Removal of existing Left NU stent, placement of a 10 cm 4.7 Fr JJ ureteral stent, Placement of 10.2 Fr nephrostomy tube ? 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 Nephrostomy tube was capped at discharge on 05/28/16. ?? Procedure events and findings: After obtaining informed consent, patient was positioned supine on procedure table and sterile prep and drape performed, maximum sterile barrier technique was used throughout. The IR nurse continuously monitored pulse, pressure, and oxygen saturation. ?? Contrast injection via the existing catheter filled transplant renal collecting system with prompt flow to bladder. The catheter was cut and a guide wire was advanced into the collecting system. Existing catheter removed over wire with double J ureteral stent left in place, extending from renal collecting system to bladder. ?? Medications: Antibiotic Prophylaxis: Cipro 500mg PO ?? Est Blood Loss: <5cc. ?? Complications: No immediate. ?? Impression: ?? 1. No evidence of obstruction between transplant renal collecting system and bladder. ?? 2. Nephrostomy tube removed, ureteral stent remains in place. ?? Resident/Fellow: None. ?? Attending: Dr. Seng Lange performed this procedure. Santosh Arredondo MD [facility] IR ORDERABLES documented in this encounter Visit Diagnoses Diagnosis Ureteral stricture Stricture or kinking of ureter documented in this encounter Administered Medications Inactive Administered Medications - up to 3 most recent administrations Medication Order MAR Action Action Date Dose Rate Site ciprofloxacin (CIPRO) tablet 500 mg 500 mg, Oral, ONCE, 1 dose, On Thu06/09/16 at 0730, Angio/IR (Intra-Procedure), Routine, Indication for (Active or Suspected): Prophylaxis Given 06/09/2016 7:30 AM EST 500 mg iohexol (OMNIPAQUE) 350 mg/mL solution 17,500 mg 17,500 mg (50 mL), Other, ONCE PRN, 1 dose, Starting on Thu06/09/16 at 0824, Until Thu06/09/16 at 0824, Per Protocol, Warning Vesicant/Irritant Medication , Routine Given 06/09/2016 8:24 AM EST 7 mLs lidocaine (XYLOCAINE) 10 mg/mL (1 %) injection 10 mg 10 mg, Subcutaneous, ONCE, 1 dose, On Thu06/09/16 at 0730, For use in Interventional Radiology (IR) only for procedure with direct provider supervision and verbal order., Angio/IR (Intra-Procedure), Routine Given 06/09/2016 8:08 AM EST 10 mg documented in this encounter Care Teams Financial Aid Director Relationship Specialty Start Date End Date Urbano Denis DO [address] [place] [address] PCP - General 09/03/12 03/17/22 Ruchi Valles RN Nurse Clinic Transplant Surgery 07/30/15 documented as of this encounter
--- OUTSIDE RECORDS SUMMARY | 2024-02-14 11:28 | XMS_ITS | Encounter Summary ---
[place] [address] Care Team Providers Care Oncology Physician Assistant Name Role Phone Urbano Denis DO Primary Care Provider + [phone] Reason for Referral * Diagnostic Test (Routine) - Closed Specialty Diagnoses / Procedures Referred By Humberto flor Referred To Contact Radiology Diagnoses Ureteral stricture Procedures IR all procedures Santosh Arredondo MD [facility] [place] [address] [place] [address] Referral ID Status Reason Start Date Expiration Date V isits Requested Visits Authorized [id number] Closed Specialty Service Requested 06/03/2016 06/03/2017 1 1 Encounter Details Date Type Department Care Team (Latest Contact Info) Description 06/03/2016 10:00 AM EST Clinical [place] [address] Ureteral stricture Social History Tobacco Use Types [...] Sign Reading Time Taken Comments Blood Pressure 134/62 06/03/2016 10:11 AM EST Pulse 63 06/03/2016 10:11 AM EST Temperature - - Respiratory Rate - - Oxygen Saturation - - Inhaled Oxygen Concentration - - Weight 95.3 kg (210 lb) 06/03/2016 10:11 AM EST Height 177.8 cm (5' 10) 06/03/2016 10:11 AM EST Body Mass Index 30.13 06/03/2016 10:11 AM EST documented in this encounter Progress Notes * Jovanna Hooks LPN - 06/03/2016 10:00 AM EST See UDS note. Jovanna documented in this encounter Plan of Treatment Upcoming Encounters Date Type Department Care Team (Late st Contact Info) Description 04/15/2024 10:00 AM EDT Hospital Encounter Non-[place]vasive [place] [address] Arrived documented as of this encounter Results * IR all procedures (06/09/2016 8:23 AM EST) Anatomical Region Laterality Modality Abdomen X-Ray Angiograph y Narrative 06/09/2016 8:34 AM EST IR PROCEDURE NOTE ?? Procedure: Nephrostomy tube check and removal. ?? Indication for Procedure: Per Cody Gonzales Patricia Bolden is a 65 y.o. male with history [...] the renal pelvis with ligation of the [place] ureter on 05/20/2016. Nephrostomy tube was capped [...] Lange performed this procedure. Santosh Arredondo MD [facility] [place] IR ORDERABLES documented in this encounter Visit Diagnoses Diagnosis Ureteral stricture Stricture or kinking of ureter Ureteral stricture Stricture or kinking of ureter documented in this encounter Care Teams Oncology Physician Assistant Relationship Specialty Start Date End Date Urbano Denis DO [address] [place] [address] [address] [place] [address] PCP - General 09/03/12 03/17/22 Ruchi Valles RN Nurse Clinic Transplant Surgery 07/30/15 documented as of this encounter
--- OUTSIDE RECORDS SUMMARY | 2024-02-14 11:28 | XMS_ITS | Encounter Summary ---
Author Organization [facility] Address [facility] [place] [address] Care Team Providers Care Table And Desk Finisher Name Role Phone Urbano Denis DO Primary Care Provider [phone] Encounter Details Date Type Department Care Team (Late st Contact Info) Description 06/03/2016 9:00 AM EST Office Visit [place] [address] Que Amaro MD [facility] [place] [address] H/O kidney transplant; H/O chronic hepatitis Social History Tobacco Use Types Packs/Day Years [...] Sign Reading Time Taken Comments Blood Pressure 113/60 06/03/2016 11:43 AM EST Pulse 66 06/03/2016 11:43 AM EST Temperature 36.8 ??C (98.3 ??F) 06/03/2016 11:[address] Respiratory Rate 12 06/03/2016 11:43 AM EST Oxygen Saturation 98% 06/03/2016 11:43 AM EST Inhaled Oxygen Concentration - - Weight 92.5 kg (204 lb) 06/03/2016 11:43 AM EST Height - - Body Mass Index 29.27 06/03/2016 10:11 AM EST documented in this encounter Progress Notes * Ellen Edmonds MD - 06/03/2016 9:00 AM EST Post-Transplant Routine Follow-Up Clinic Visit Date: 06/03/2016 Patient: Cody Bolden Transplant: Mr. Bolden is a 65-yo male who is s/p donor kidney transplantation in September of this year by Dr. Larkin. He developed a ureteral stricture and underwent series of ureteral dilation attempts with NU stenting across the stricture. While this was successful, he unfortunately developed many episodes of urosepsis requiring hospitalization and IV ABX. He was again hospitalized on 05/13/2016 1 week prior to his scheduled reconstruction with another episode of urosepsis. He was maintained on broad spectrum ABXs until his procedure on 05/20/2016 wherehe underwent Boari flap reconstruction. His post-operative coarse was complicated by an ileus. He was successfully discharged home on 05/28 with a capped nephrostomy tube, a moran catheter and an indwelling stent. He returns to clinic for post-op follow up. He was seen in Urology clinic earlier today where his Moran was removed. The stent and neph tube remain in place. He believes the neph tube is to come out in IR next week. Unsure when the stent will be removed. States that he is now having frequent bowel movements and has stopped any stool softeners. His painis well controlled and he denies any fevers or chills. Routine Health Maintenance: Health Maintenance Topic Date Due ??? DM Urine Microalbumin yearly 1958 ??? DM Opthalmology Exam 1958 ??? Tdap adult 1967 ??? Colonoscopy every 10 years 1998 ??? Advance Directive 2003 ??? AAA Screen 2013 ??? DM Hemoglobin A1c every 6 months 01/08/2015 ??? Pneumo vaccine (65+) (2 of 2 - PCV13) 04/11/2016 ??? DM Creatinine yearly 05/28/2017 ??? Lipid Screening 05/13/2021 ??? Tetanus vaccine 05/20/2021 ??? Hepatitis C screening (B. [id number]) Completed ??? Influenza (Flu) vaccine Completed ??? Zoster vaccine Completed Problem List: Patient Active Problem List Diagnosis [...] stricture N13.5 ??? Dehydration E86.0 Past Medical History: Past Medical History Diagnosis [...] EXTREMITY performed by Que Amaro MD at [facility] MAIN OR ??? Pro transplantation of kidney N/A 09/16/2015 @KIDNEY TRANSPLANT, WITHOUT RECIPIENT NEPHRECTOMY performed by Franko Larkin MD at [facility] OR ??? Pro transplant, prep cadaver renal graft N/A 09/16/2015 @PREPARATION CADAVERIC RENAL ALLOGRAFT performed by Franko Larkin MD at [facility] MAIN OR ??? N/A 09/16/2015 ORGAN ACQUISITION RENAL, CADAVERIC performed by Franko Larkin MD at [facility] MAIN OR ??? Pro reimplant ureter, single ureter Left 05/20/2016 @URETERONEOCYSTOSTOMY ANASTOMOSIS OF SINGLE URETER TO BLADDER performed by Santosh Arredondo MD at [facility] MAIN OR ??? Pro reimplant ureter, single ureter N/A 05/20/2016 @URETERONEOCYSTOSTOMY ANASTOMOSIS OF SINGLE URETER TO BLADDER performed by Que Amaro MD at [facility] MAIN OR FAMILY HISTORY: No family history on file. SOCIAL HISTORY: Social History Substance Use Topics ??? Smoking status: Former Smoker Types: Cigars Quit date: 01/02/2015 ??? Smokeless tobacco: Never Used Comment: cigars, one weekly ??? Alcohol use No Visit Vitals: BP 113/60 (BP Location (P): Right arm, Patient Position: Sitting, BP Cuff Sizes: Large Adult (32-43 cm)) Pulse 66 Temp 36.8 ??C (98.3 ??F) (Oral) Resp 12 Wt 92.5 kg (204 lb) SpO2 98% BMI 29.27 kg/m2 Diagnoses: ICD-10-CM 1. H/O kidney transplant Z94.0 Basic Metabolic Panel (non-fasting) Cholesterol, total Magnesium Phosphorus Uric acid Reticulocyte Count CBC (with Diff) Urinalysis with reflex Culture Tacrolimus level BKV Quant Blood Albumin Level 2. H/O chronic hepatitis Z87.19 Liver Fibrosis Panel Allergies: Review of patient's allergies indicates no known allergies. Immunizations: Most Recent Immunizations Administered Date(s) Administered ??? Hepatitis B Vaccine, unspecified formulation 06/20/2015 ??? Influenza PF, Split 05/26/2013 ??? Influenza PF, Split (High Dose) 04/23/2016 ??? Influenza Vaccine PF, Quadrivalent (6-35 Mos) 04/04/2015 ??? Pneumococcal Polyvalent 23 04/11/2015 ??? Td, adult 05/20/2011 ??? Zoster Vaccine, Live 07/17/2015 Current Meds: Scheduled Meds: Outpatient Prescriptions Marked as Taking for the 06/03/16 encounter (Office Visit) with Que Amaro MD Medication Sig Dispense Refill ??? aspirin 81 [...] by mouth daily. 60 tablet 2 ??? [DISCONTINUED] hydrALAZINE (APRESOLINE) 25 mg Tablet Take 1 tablet by mouth 3 times daily. 90 tablet 1 ??? meTOPROLOL tartrate (LOPRESSOR) 50 mg Tablet Take 1 tablet by mouth 2 times daily. 60 tablet 11 ??? tacrolimus (PROGRAF) 0.5 mg Capsule Take [...] capsule by mouth daily. 30 capsule 11 Continuous Infusions: PRN Meds: Labs: Lab Results Component Value Date CREATININE 1.24 06/03/2016 K 4.1 06/03/2016 GLUCOSE 166 06/03/2016 HCT 40.7 06/03/2016 WBC 14.0 (H) 06/03/2016 ROS: Negative 10 systems otherwise Body mass index is 29.27 kg/(m^2). Physical Exam: NAD Regular No Respiratory Distress on RA Soft, NT, ND, Incision c/d/i. Mild reactive erythema around belt line Neph tube capped. Insertion site clean and dry Assessment and Plan: Cody Patricia Bolden is out 8 months from Kidney transplantation complicated by ureteral stricture andrecurrent urosepsis who is now s/p kidney reimplantation/ ureteral reconstruction on 05/20. He appears to be recovering well post-op and is have no recurrent infectious symptoms. WBC is slightly elevated at 14 (up from 12.7 at discharge), however. He is being maintained on bactrim prophylaxis. Mr. Cody Bolden is maintaining good graft function and his Cr is 1.2 today. Immunosuppression reviewed and adjusted: Prograf: 1 and 0.5 mg . Will check today's level, when available, and adjust as needed. Cellcept 250 mg BID. Infection Control: Will have patient remain on Bactrim until after Neph Tube is removed. Hypertension Management: BP slightly low today in clinic- patient was discharged on standing metoprolol and PRN hydralazine secondary to elevated BPs. These are not chronic meds for him so will discontinue them and have patient continue to monitor BP at home. He is to call for instructions if BP >160 Will have patient Restart plavix 24 hours after neph tube is removed. He can discontinue the ASA 24hours after restarting this. Hyperlipidemia Management: good Calcium and phosphorous Management: good Magnesium Management: good Will have patient return to clinic about 1 week after Neph tube removed to reassess labs and check for recurrent infection. He is to call with questions MD: ELLEN EDMONDS MD I have seen the patient and reviewed the resident's above history and I agree with the details as written. The assessment and plan were formulated in discussion with me and I agree with them as documented. --Graft function: creatinine level looks good today. Stable at 1.2. He was evaluated by Dr. Arredondo and Moran was removed following a nephrostogram. The nephrostomy tube was left in place and we are continuing the Bactrim through next week when he is evaluated again to determine whether the nephrostomy tube can be removed. He will resume his Plavix therapy and d/c ASA 24 hours following nephrostomy removal as long as there are no complications. No concerns about his graft today. -- Immunosuppression reviewed and adjusted: Prograf: tacrolimus level is pending on a dose of 1.5 / 1. Await level this afternoon for further adjustment Prednisone: none Cellcept: 250 mg po bid -- Hypertension management: stopped metoprolol today. -- Electrolytes: Calcium and phosphorus balance reviewed. Magnesium balance reviewed. -- RTC: approximately two weeks (one week following nephrostomy removal) for full set of labs, including a repeat creatinine level check. * Herlinda Bell RD - 06/03/2016 9:[address] [facility] Post Transplant Nutrition Follow Up Date: 06/03/2016 Patient: Cody Bolden Transplant Date: 09/16/15 [place] organ UNOS diagnosis: Transplant: Mr. Cody Bolden is a White Not nor 65 y.o. male who is Status Post Kidney transplantation on 09/16/15. Patient was seen by Nutrition services on 06/03/2016 for followup. Wt Readings from Last 3 Encounters: 06/03/16 95.3 kg (210 lb) 06/03/16 92.5 kg (204 lb) 05/28/16 93.2 kg (205 lb 7.5 oz) Today's vital signs: BP 113/60 (BP Location (NBP): Right arm, Patient Position: Sitting, BP Cuff Sizes: Large Adult (32-43 cm)) Pulse 66 Temp 36.8 ??C (98.3 ??F) (Oral) Resp 12 Wt 92.5 kg (204 lb) SpO2 98% BMI 29.27 kg/m2 Estimated body mass index is 29.27 kg/(m^2) as calculated from the following: Height as of an earlier encounter on 06/03/16: 177.8 cm (5' 10). Weight as of this encounter: 92.5 kg (204 lb). Weight pre-Txp: 100.7 Kg (222 lbs) Lab Results Component Value Date HGB 13.9 06/03/2016 HCT 40.7 06/03/2016 NA 138 06/03/2016 K 4.1 06/03/2016 BUN 16 06/03/2016 CREATININE 1.24 06/03/2016 GLUCOSE 166 06/03/2016 CALCIUM 9.7 06/03/2016 MAGNESIUM 0.59 (L) 06/03/2016 PHOS 2.4 (L) 06/03/2016 ALBUMIN 4.0 06/03/2016 Cholesterol (in eD-H the component name CHLPL=Cholesterol) Lab Results Component Value Date CHLPL 131 06/03/2016 Assessment: This typewriter aligner reviewed patient's labs with him and his . He is doing well after his most recent surgery for ureter reconstruction. He continues to require magnesium and phosphorus supplementation with medications and foods. Patient is having regular bowel movements. Plan: Follow up next clinic visit and prn reassessing labs and weight. Nutrition interventions as needed. documented in this encounter Plan of Treatment Upcoming Encounters Date Type Department Care Team (Late st Contact Info) Description 04/15/2024 10:00 AM EDT Hospital Encounter Non-In[place] [address] Arrived Pending Results Name Type Priority Associated Diagnoses Date /Time BKV Quant Blood Lab Routine H/O kidney transplant 06/03/2016 9:52 AM EST Scheduled Orders Name Type Priority Associated Diagnoses Orde r Schedule BKV Quant Blood Lab Routine H/O kidney transplant Expected: 06/02/2016 (Approximate), Expires: 11/29/2016 documented as of this encounter Results * (ABNORMAL) Urinalysis with reflex Culture (06/03/2016 2:05 PM EST) Glucose, Urine Dipstick Negative Negative [...] [facility] pH, Urn (dipstick) 7.0 5.0 - 8.0 [facility] Blood, Urine Dipstick Large(A) Negative mg/dL [facility] Ketone, Urine Dipstick Negative Negative mg/dL [facility] Nitrite, Urine Dipstick Negative Negative [facility] Leukocytes, Urine Dipstick Small(A) Negative [facility] Appearance, Urine Dipstick Hazy(A) Clear [facility] Specific Patrick Urine Automated 1.023 1.002 - 1.030 [facility] Color, Urine Dipstick Yellow Yellow [facility] RBC, Urine >182(H) 0 - 3 /HPF [facility] WBC, Urine 20(H) 0 - 3 /HPF [facility] Bacteria, Urine Rare(A) None /HPF [facility] Squamous Epithelial Cells, Urine <1 <=4 /HPF [facility] Calcium Oxalate Crystal, Urine Few(A) None /HPF [facility] Reflex to Culture Dup Culture [facility] Urine specimen obtained by clean catch procedure (specimen) 06/03/2016 2:05 PM EST 06/03/2016 2:05 PM EST Narrative Resulting Agency Comment Spec In Lab Que Amaro MD URINE ORDERABL ES Performing Organization Address [facility] Co de Phone Number [facility] [place] [place] [address] * Albumin Level (06/03/2016 9:52 AM EST) Pathologist [facility] Albumin 4.0 3.2 - 5.2 gm/dL [facility] Blood specimen (specimen) 06/03/2016 9:52 AM EST 06/03/2016 9:55 AM EST Narrative Resulting Agency Comment Spec In Lab Que Amaro MD CHEMISTRY ORDE RABLES Performing Organization Address [facility] Co de Phone Number [facility] [place] [address] * (ABNORMAL) Liver Fibrosis Panel (06/03/2016 9:52 AM EST) Liver Fibrosis Panel FLEXITEST 3(A) [facility] Comment: FLEXITEST 3 TESTS RESULTS--------UNITS--REF. RANGE--- Fibrosis Score ? 0.59 Fibrosis Stage ? F3 Fibrosis Interpretation ? SEE NOTE advanced fibrosis Fibro Test Score ?? Metavir Score 0.00-0.21 ?F0 ? no fibrosis 0.22-0.27 ?F0-F1 0.28-0.31 ?F1 ? minimal fibrosis 0.32-0.48 ?F1-F2 0.49-0.58 ?F2 ? moderate fibrosis 0.59-0.72 ?F3 ? advanced fibrosis 0.73-0.74 ?F3-F4 0.75-1.00 ?F4 ? severe fibrosis Necroinflammat Act Score ? 0.19 Necroinflammat Act Grade ?A0-A1 Necroinflammat Interp ? SEE NOTE no activity ActiTest Score ? Metavir Score 0.00-0.17 ?A0 ? no activity 0.18-0.29 ?A0-A1 0.30-0.36 ?A1 ? minimal activity 0.37-0.52 ?A1-A2 0.53-0.60 ?A2 ? significant activity 0.61-0.62 ?A2-A3 0.63-1.00 ?A3 ? severe activity Rzqca-9-Ixvcjoocsckgc ? 267 ?mg/dL ??106-279 Haptoglobin ? 235 H ?mg/dL ??43-212 Apolipoprotein A1 ? 128 ?mg/dL ??94-176 Total Bilirubin ? 0.9 ?mg/dL ??0.2-1.2 GGT ?55 ?U/L ??3- 70 ALT ?28 ?U/L ??9- 46 Reference ID ?[id number] Footnote ?SEE NOTE The reliability of results is dependent on compliance with the preanalytical and analytical conditions recommended by [employer]. The tests have to be deferred for: acute hemolysis, acute hepatitis, acute inflammation, extra hepatic cholestasis. The advice of a specialist should be sought for interpretation in chronic hemolysis and Gilbert's syndrome. The test interpretation is not validated in liver transplant patients. Isolated extreme values of one of the components should lead to caution in interpreting the results. In case of discordance between a biopsy result and a test, it is recommended to seek the advice of a specialist. The causes of these discordances could be due to a flaw of the test or to a flaw in the biopsy: i.e. a liver biopsy has a 33% variability rate for one fibrosis stage. FibroTest is interpretable for chronic hepatitis B and C, alcoholic and non alcoholic steatosis. ActiTest is interpretable for chronic hepatitis B and C. The performance characteristics have been determined by [facility], [place]. It has not been cleared or approved by the U.S. Food and Drug Administration. Performance characteristics refer to the analytical performance of the test. [employer], the associated logo, Bubbles and all associated [employer] jacobsen are the registered trademarks of [employer] All third alliance party jacobsen - (R) and (TM) - are the property of their respective owners. (C) [id number] [employer] Incorporated. All rights reserved. Test performed by: ? [facility] ? [address] [facility] ? [place] [address] ? Phone: ??[phone] Director: ??Tanmay Huggins M.D. Test Reported by [employer] [place], [facility], [address] [place] [address] Fer Stoll M.D., Ph.D., Director of Laboratories , [facility] [id number] Blood specimen (specimen) 06/03/2016 9:52 AM EST 06/03/2016 10:00 AM EST Narrative Resulting Agency Comment Spec In Lab Que Amaro MD LAB SEND OUT O RDERABLES [facility] [place] [address] * Tacrolimus level (06/03/2016 9:52 AM EST) Tacrolimus 4.1 ng/mL [facility] Comment: Trough therapeutic: ??5-15 ng/mL Performed by ultra-performance liquid chromatography tandem mass spectrometry (UPLCMS/MS). Blood specimen (specimen) 06/03/2016 9:52 AM EST 06/03/2016 10:55 AM EST Narrative Resulting Agency Comment Spec In Lab Que Amaro MD CHEMISTRY ROCHELLE JENNINGS Performing Organization Address [facility] Co de Phone Number [facility] [place] [address] * Reticulocyte Count (06/03/2016 9:52 AM EST) Reticulocyte % 1.6 0.7 - 2.6 % [facility] Retic Abs # 0.070 0.030 - 0.120 x10(6)/mcL [facility] Immature Retic% 7.4 0.0 - 15.6 % [facility] Reticulated Hgb 36.7 31.3 - 40.2 pg [facility] Blood specimen (specimen) 06/03/2016 9:52 AM EST 06/03/2016 9:55 AM EST Narrative Resulting Agency Comment Spec In Lab Que Amaro MD HEMATOLOGY ORD ERABLES Performing Organization Address [facility] Phone Number [facility] [place] [place] [address] * Uric acid (06/03/2016 9:52 AM EST) Uric Acid 6.0 3.5 - 8.5 mg/dL [facility] Blood specimen (specimen) 06/03/2016 9:52 AM EST 06/03/2016 9:55 AM EST Narrative Resulting Agency Comment Spec In Lab Que Amaro MD CHEMISTRY ORDTiny JENNINGS Performing Organization Address [facility] Co de Phone Number [facility] [place] [address] * (ABNORMAL) Phosphorus (06/03/2016 9:52 AM EST) Phosphorus 2.4(L) 2.5 - 4.5 mg/dL [facility] Blood specimen (specimen) 06/03/2016 9:52 AM EST 06/03/2016 9:55 AM EST Narrative Resulting Agency Comment Spec In Lab Que Amaro MD CHEMISTRY ROCHELLE JENNINGS Performing Organization Address [facility]/ZIP Co de Phone Number [facility] [place] [address] * (ABNORMAL) Magnesium (06/03/2016 9:52 AM EST) [facility] Magnesium 0.59(L) 0.69 - 1.07 mmol/L [facility] Blood specimen (specimen) 06/03/2016 9:52 AM EST 06/03/2016 9:55 AM EST Narrative Resulting Agency Comment Spec In Lab Que Amaro MD CHEMISTRY ROCHELLE JENNINGS Performing Organization Address [facility] Co de Phone Number [facility] [place] [place] [address] * Cholesterol, total (06/03/2016 9:52 AM EST) [facility] Cholesterol, Total 131 <=199 mg/dL [facility] Comment: Recommendations of the NCEP Adult Treatment Panel for the following risk cutoff thresholds for the [place] population: Desirable: <200 mg/dL Borderline High: 200-239 mg/dL High: > or = 240 mg/dL Blood specimen (specimen) 06/03/2016 9:52 AM EST 06/03/2016 9:55 AM EST Narrative Resulting Agency Comment Spec In Lab Que Amaro MD CHEMISTRY ROCHELLE JENNINGS Performing Organization Address [facility] Co de Phone Number [facility] [place] [address] * (ABNORMAL) Basic Metabolic Panel (non-fasting) (06/03/2016 9:52 AM EST) Glucose 166 65 - 199 mg/dL [facility] Comment:Diabetes: >=200 mg/d L plus symptoms Blood Urea Nitrogen 16 10 - 20 mg/dL [facility] Creatinine 1.24 0.80 - 1.50 mg/dL [facility] Comment: Please note that the pediatric reference intervals supplied above were not validated at [facility]. Results from pediatric patients should be interpreted in conjunction to the patient's age, height and muscle mass. Sodium 138 135 - 145 mmol/L [facility] Potassium 4.1 3.5 - 5.0 mmol/L [facility] Comment: Please note: ??Patients with WBC >100,000 may have falsely elevated Potassium levels. ??For accurate Potassium quantification in these patients send serum separator tube (gold top) for subsequent determinations. ??Contact the Clinical Chemistry Laboratory if there are any questions. Chloride 96(L) 98 - 107 mmol/L [facility] Carbon Dioxide 28 22 - 31 mmol/L [facility] Anion Gap 14 5 - 15 mmol/L [facility] Calcium 9.7 8.5 - 10.5 mg/dL [facility] Est Glomerular Filtration Rate 58(L) >=60 [facility] Comment: This [...] the following links into your internet browser. [email or web address] Blood specimen (specimen) 06/03/2016 9:52 AM EST 06/03/2016 9:55 AM EST Narrative Resulting Agency Comment Spec In Lab Que Amaro MD CHEMISTRY ROCHELLE JENNINGS [facility] Organization Address City/State/ZIP [place] [address] documented in this encounter Visit Diagnoses Diagnosis H/O kidney transplant Kidney replaced by transplant H/O chronic hepatitis Personal history of other diseases of digestive system documented in this encounter Care Teams Table And Desk Finisher Relationship Specialty Start Date End Date Urbano Denis DO [address] [place] [address] PCP - General 09/03/12 03/17/22 Ruchi Valles RN Nurse Clinic Transplant Surgery 07/30/15 documented as of this encounter
--- OUTSIDE RECORDS SUMMARY | 2024-02-14 11:28 | XMS_ITS | Encounter Summary ---
Author Organization [facility] Address [facility] [place] [address] Care Team Providers Care Advisor Advocate Angel Co Founder Name Role Phone Urbano Denis DO Primary Care Provider Encounter Details Date Type Department Care Team (Late st Contact Info) Description 06/18/2016 11:30 AM EST Office Visit [place] [address] Que Amaro MD [facility] [place] [address] Kidney replaced by transplant Social History Tobacco [...] Sign Reading Time Taken Comments Blood Pressure 122/73 06/18/2016 11:22 AM EST Pulse 73 06/18/2016 11:22 AM EST Temperature 36.4 ??C (97.6 ??F) 06/18/2016 11:[address] Respiratory Rate 12 06/18/2016 11:22 AM EST Oxygen Saturation 96% 06/18/2016 11:22 AM EST Inhaled Oxygen Concentration - - Weight 95.1 kg (209 lb 9.6 oz) 06/18/2016 11:22 AM EST Height - - Body Mass Index 30.07 06/03/2016 10:11 AM EST documented in this encounter Progress Notes * Jay Vargas MD - 06/18/2016 11:30 AM EST Follow-Up: Transplant Clinic Date: 06/18/2016 Patient: Cody Bolden Date of Transplant: 09/16/2015 (Kidney) Transplant Surgeon: Sondra History of Present Illness: Cody Bolden is s/p Kidney transplant on 09/16/2015 (Kidney). He presents for evaluation and management after his transplant procedure. Patient was recently discharged from [facility] s/p UTI, ureteral reimplant for recurring ureteral stricture (05/28/2016) and PCN placement. Patient has since had his PCN removed, moran removed, and will have stent removed this afternoon. Reports feeling well since discharge, complains of ventral abdominal puffiness today. Denies fever, chills, n/v, night sweats, chest pain or shortness of breath. Current Meds: Current Outpatient Prescriptions Medication Sig Dispense Refill ??? aspirin 81 [...] needed for Pain. 30 tablet 0 ??? tacrolimus (PROGRAF) 0.5 [...] 30 capsule 11 No current facility-administered medications for this visit. [...] Z79.899 ??? Aftercare following organ transplant Z48.298 Past Medical History: Past Medical History Diagnosis [...] EXTREMITY performed by Que Amaro MD at [facility] OR ??? Pro transplantation of kidney N/A 09/16/2015 @KIDNEY TRANSPLANT, WITHOUT RECIPIENT NEPHRECTOMY performed by Franko Larkin MD at [facility] OR ??? Pro transplant, prep cadaver renal graft N/A 09/16/2015 @PREPARATION CADAVERIC RENAL ALLOGRAFT performed by Franko Larkin MD at [facility] OR ??? N/A 09/16/2015 ORGAN ACQUISITION RENAL, CADAVERIC performed by Franko Larkin MD at [facility] OR ??? Pro reimplant ureter, single ureter Left 05/20/2016 @URETERONEOCYSTOSTOMY ANASTOMOSIS OF SINGLE URETER TO BLADDER performed by Santosh Arredondo MD at [facility] OR ??? Pro reimplant ureter, single ureter N/A 05/20/2016 @URETERONEOCYSTOSTOMY ANASTOMOSIS OF SINGLE URETER TO BLADDER performed by Que Amaro MD at [facility] OR Family History: No family history on file. Social History: Social History Substance Use Topics ??? Smoking status: Former Smoker Types: Cigars Quit date: 01/02/2015 ??? Smokeless tobacco: Never Used Comment: cigars, one weekly ??? Alcohol use No ROS: Review of Systems Constitutional: Negative for activity change, appetite change, chills, diaphoresis, fatigue, fever and unexpected weight change. HENT: Negative for congestion and sore throat. Respiratory: Negative for cough, choking, chest tightness, shortness of breath, wheezing and stridor. Cardiovascular: Negative for chest pain. Gastrointestinal: Positive for abdominal pain. Negative for blood in stool, diarrhea and vomiting. Genitourinary: Positive for frequency. Negative for difficulty urinating, dysuria, enuresis and flank pain. Musculoskeletal: Negative for arthralgias, back pain and myalgias. Neurological: Negative for weakness. Vital Signs: BP 122/73 (BP Location (NBP): Right arm, Patient Position: Sitting, BP Cuff Sizes: Large Adult (32-43 cm)) Pulse 73 Temp 36.4 ??C (97.6 ??F) (Oral) Resp 12 Wt 95.1 kg (209 lb 9.6 oz) SpO2 96% BMI 30.07 kg/m2 Physical Exam: Objective: Vital signs (most recent): Blood pressure 122/73, pulse 73, temperature 36.4 ??C (97.6 ??F), temperature source Oral, resp. rate 12, weight 95.1 kg (209 lb 9.6 oz), SpO2 96 %. General appearance: Comfortable, well-appearing, in no acute distress and not in pain. Lungs: Normal respiratory rate and normal effort. He is in no respiratory distress. There are no wheezes, rales or rhonchi. Heart: Normal rate. Regular rhythm. Abdomen: Abdomen is soft. No distension. Tenderness: (Generalized soreness difficult to reproduce on physical exam). Wound: Clean. There is no dehiscence. There is no drainage. Extremities: There is normal range of motion. Neurological: The patient is alert. Drain: No Labs: Lab Results Component Value Date CREATININE 1.34 06/18/2016 K 4.2 06/18/2016 GLUCOSE 153 06/18/2016 HCT 41.1 06/18/2016 HGB 14.2 06/18/2016 WBC 6.5 06/18/2016 PHOS 2.7 06/18/2016 Assessment: Cody Bolden is doing well after transplant. During the visit, I examined his wound, reviewed his immunosuppression, discussed pain control, and instructed Mr. Cody Bolden regarding hydration and nutrition. I identified the following additional issues affecting his post-transplant courseNone. Plan: 1. Other Category: Prograf: Yes, 1/0.5 Prednisone: No MMF: Yes, 250mg bid 2. Blood Pressure management: No BP meds 3. Calcium and phosphorus balance reviewed. Continue supplementation: Yes, Calcitriol 0.5mcg 4. Magnesium balance reviewed. Yes, adequate 5. Pharmacy needs addressed. No concerns today. 6. Return to clinic: 4 weeks MD: Jay Vargas MD I have seen the patient and reviewed the resident's above history and I agree with the details as written. The assessment and plan were formulated in discussion with me and I agree with them as documented. --Graft function: creatinine level is stable at 1.3 today. There is no suggestion of graft dysfunction following the removal of the Moran catheter and the percutaneous nephrostomy tube. He is scheduled to see Dr. Arredondo later today to have the stent that is placed across the Boari flap anastomosis removed. Doing very well following the procedure. The patient requested a refill on his oxycodone script today. I provided a one time script for 28 tablets of oxycodone 5 mg. -- Hepatitis C: will communicate with Dr. Horvath re: initiation of hepatitis C treatment. He is clear to proceed from a transplant standpoint. -- CVA prophylaxis: the patient did not convert to Plavix from aspirin following our conversation at our last appointment. He will continue the aspirin through tomorrow and will begin Plavix 75 mg poqd tomorrow am. He will overlap the Plavix and aspirin doses for 24 hours and then discontinue aspirin altogether. Patient and aware, med sheet updated with this information during the clinic visit. -- Immunosuppression reviewed and adjusted: Prograf: tacrolimus level is pending on a dose of 1/0.5. Will adjust if necessary when this returnslater today. Goal trough level range is 4 - 6. Prednisone: none Cellcept: 250 mg po bid -- Hypertension management: no adjustments were required today -- Electrolytes: Calcium and phosphorus balance reviewed. Magnesium balance reviewed. -- RTC: one month with a full set of labs documented in this encounter Plan of Treatment Upcoming Encounters Date Type Department Care Team (Late st Contact Info) Description 04/15/2024 10:00 AM EDT Hospital Encounter Non-[place] [address] Arrived documented as of this encounter Results * (ABNORMAL) Urinalysis with reflex Culture (06/18/2016 10:57 AM EST) Glucose, Urine Dipstick Negative Negative mg/dL [facility] Protein, Urine Dipstick 30(A) Negative mg/dL [facility] Bilirubin, Urine Dipstick Negative Negative mg/dL [facility] Comment: Clinical correlation required for positive Urine Bilirubin results as false positive may occur with some drugs and drug related products. If a false positive is suspected a serum total bilirubin should be considered if clinically indicated. Urobilinogen, Urine Dipstick 2.0(A) Normal mg/dL [facility] pH, Urn (dipstick) 6.0 5.0 - 8.0 [facility] Blood, Urine Dipstick Small(A) Negative mg/dL [facility] Ketone, Urine Dipstick Negative Negative mg/dL [facility] Nitrite, Urine Dipstick Negative Negative [facility] Leukocytes, Urine Dipstick Trace(A) Negative [facility] Appearance, Urine Dipstick Clear Clear [facility] Specific [place] Urine Automated 1.025 1.002 - 1.030 [facility] Color, Urine Dipstick Yellow Yellow [facility] RBC, Urine 3 0 - 3 /HPF [facility] WBC, Urine 14(H) 0 - 3 /HPF [facility] Bacteria, Urine Rare(A) None /HPF [facility] Transitional Epithelial Cells, Urine 1 <=1 /HPF [facility] Renal Epithelial Cells, Urine <1(H) <=0 /HPF [facility] Amorphous Crystals, Urine Rare(A) None /HPF [facility] Reflex to Culture Yes [facility] Urine specimen obtained by clean catch procedure (specimen) 06/18/2016 10:57 AM EST 06/18/2016 10:58 AM EST Narrative Resulting Agency Comment Spec In Lab Que Amaro MD URINE ORDERABL ES [facility] [place] [address] * (ABNORMAL) Protein/Creatinine Ratio, urine (06/18/2016 10:57 AM EST) Creatinine, Urine 158 mg/dL [facility] Protein, Urine 24(H) 0 - 12 mg/dL [facility] Protein / Creatinine Ratio, Urine 0.2 ratio [facility] Urine specimen (specimen) 06/18/2016 10:57 AM EST 06/18/2016 11:15 AM EST Narrative Resulting Agency Comment Spec In Lab Que Amaro MD URINE ORDERABL ES Performing Organization Address [facility] Phone Number [facility] [place] [address] * Uric acid (06/18/2016 10:44 AM EST) Uric Acid 7.9 3.5 - 8.5 mg/dL [facility] Blood specimen (specimen) 06/18/2016 10:44 AM EST 06/18/2016 10:51 AM EST Narrative Resulting Agency Comment Spec In Lab Que Amaro MD CHEMISTRY ORDE RABLENORE Performing Organization Address [facility] Phone Number [facility] [place] [address] * Tacrolimus level (06/18/2016 10:44 AM EST) Tacrolimus 4.0 ng/mL [facility] Comment: Trough therapeutic: ??5-15 ng/mL Performed by ultra-performance liquid chromatography tandem mass spectrometry (UPLCMS/MS). Blood specimen (specimen) 06/18/2016 10:44 AM EST 06/18/2016 1:23 PM EST Narrative Resulting Agency Comment Spec In Lab Que Amaro MD CHEMISTRY ORDBhargav JENNINGS Performing Organization Address [facility] de Phone Number [facility] [place] [address] * (ABNORMAL) Reticulocyte Count (06/18/2016 10:44 AM EST) Reticulocyte % 2.7(H) 0.7 - 2.6 % [facility] Retic Abs # 0.120 0.030 - 0.120 x10(6)/mcL [facility] Immature Retic% 9.5 0.0 - 15.6 % [facility] Reticulated Hgb 37.8 31.3 - 40.2 pg [facility] Blood specimen (specimen) 06/18/2016 10:44 AM EST 06/18/2016 10:51 AM EST Narrative Resulting Agency Comment Spec In Lab Que Amaro MD HEMATOLOGY ORD ERABLES Performing Organization Address [facility] Co de Phone Number [facility] [place] [address] * Phosphorus (06/18/2016 10:44 AM EST) Phosphorus 2.7 2.5 - 4.5 mg/dL [facility] Blood specimen (specimen) 06/18/2016 10:44 AM EST 06/18/2016 10:51 AM EST Narrative Resulting Agency Comment Spec In Lab Que Amaro MD CHEMISTRY ORDBhargav JENNINGS Performing Organization Address [facility] Phone Number [facility] [place] [address] * (ABNORMAL) Magnesium (06/18/2016 10:44 AM EST) Pathologist [facility] Magnesium 0.66(L) 0.69 - 1.07 mmol/L [facility] Blood specimen (specimen) 06/18/2016 10:44 AM EST 06/18/2016 10:51 AM EST Narrative Resulting Agency Comment Spec In Lab Que Amaro MD CHEMISTRY ORDBhargav JENNINGS Performing Organization Address [facility] Co de Phone Number [facility] [place] [address] * Cyclosporine level (06/18/2016 10:44 AM EST) Cyclosporine A Level <30 ng/mL [facility] Comment: Trough therapeutic: ??100-300 ng/mL ?Trough [...] Amaro MD LAB SEND OUT O RDERABLES [facility] [place] [address] * (ABNORMAL) Comprehensive metabolic panel (non-fasting) (06/18/2016 10:44 AM EST) Glucose 153 65 - 199 mg/dL [facility] Comment:Diabetes: >=200 mg/d L plus symptoms Blood Urea Nitrogen 16 10 - 20 mg/dL [facility] Creatinine 1.34 0.80 - 1.50 mg/dL [facility] Comment: Please note that the pediatric reference intervals supplied above were not validated at [facility]. Results from pediatric patients should be interpreted in conjunction to the patient's age, height and muscle mass. Sodium 142 135 - 145 mmol/L [facility] Potassium 4.2 3.5 - 5.0 mmol/L [facility] Comment: Please note: ??Patients with WBC >100,000 may have falsely elevated Potassium levels. ??For accurate Potassium quantification in these patients send serum separator tube (gold top) for subsequent determinations. ??Contact the Clinical Chemistry Laboratory if there are any questions. Chloride 101 98 - 107 mmol/L [facility] Carbon Dioxide 25 22 - 31 mmol/L [facility] Anion Gap 16(H) 5 - 15 mmol/L [facility] Calcium 9.7 8.5 - 10.5 mg/dL [facility] Protein, Total 7.5 6.1 - 8.0 gm/dL [facility] Albumin 4.1 3.2 - 5.2 gm/dL [facility] Aspartate Aminotransferase 32 0 - 39 unit/L [facility] Alanine Aminotransferase 26 0 - 55 unit/L [facility] Alkaline Phosphatase 80 40 - 120 unit/L [facility] Bilirubin, Total 1.1 0.2 - 1.3 mg/dL [facility] Bilirubin, Direct 0.3 0.0 - 0.3 mg/dL [facility] Est Glomerular Filtration Rate 53(L) >=60 [facility] Comment: This estimated GFR [...] the following links into your internet browser. [email or web address] Blood specimen (specimen) 06/18/2016 10:44 AM EST 06/18/2016 10:51 AM EST Narrative Resulting Agency Comment Spec In Lab Que Amaro [facility] Organization Address City/State/ZIP Co de Phone Number [facility] [place] [address] * Cholesterol, total (06/18/2016 10:44 AM EST) Cholesterol, Total 160 <=239 mg/dL [facility] Lipid Interpretation See Note [facility] Comment: Lipid management should be guided by a patient? s ASCVD risk, goals and preferences. ACC/AHA Guidelines recommend high intensity statin if clinical ASCVD or LDL greater than or equal to 190 mg/dL. http://circ.ahajournals.org/content/early/.cir.4536433266.73124.7a Adults aged 40-75 with LDL 70-189 mg/dL should have their 10 year ASCVD risk estimated with the ACC/AHA ASCVD risk shared services manager http://tools.acc.org/JMWWZ-Wnjz-Givjgtixe/ Statin should be discussed if risk greater [...] Lab Que Amaro MD CHEMISTRY ROCHELLE JENNINGS [facility] [place] [address] documented in this encounter Visit Diagnoses Diagnosis Kidney replaced by transplant documented in this encounter Care Teams Advisor Advocate Angel Co Founder Relationship Specialty Start Date End Date Urbano Denis DO [address] [place] [address] PCP - General 09/03/12 03/17/22 Ruchi Valles RN Nurse Clinic Transplant Surgery 07/30/15 documented as of this encounter
--- OUTSIDE RECORDS SUMMARY | 2024-02-14 11:28 | XMS_ITS | Encounter Summary ---
Author Organization [facility] [place] [address] Care Team Providers Care Massage Therapy Instructor Name Role Phone Urbano Denis DO Primary Care Provider + [phone] Reason for Visit * Reason Comments Follow-up Encounter Details Date Type Department Care Team (Late st Contact Info) Description 06/03/2016 10:40 AM EST [place] [address] Santosh Arredondo MD [facility] [place] [address] Ureteral stricture of left kidney transplant Social History Tobacco Use Types [...] as of this encounter Progress Notes * Santosh Arredondo MD - 06/03/2016 10:40 AM EST Patient Name: Cody Bolden Date of Service: 06/04/2016 Primary Care Provider: Urbano Denis DO Reason for Visit: Cody Bolden is a 65 y.o. male comes for a post op visit following repair ofa transplant ureteral stricture with a Boari flap. He also underwent ligatio of the [place] LEFT ureter 09/17/2015 Donor renal transplant for nodular glomerulosclerosis 10/26/2015 Stent removed Cr 1.49 11/08/2015 Cr 1.89 11/12/2015 Enterococcal bacteremia. U/S mild hydronephrosis 11/23/2015 Cr 2.27 531/2016 Cr 3.1 Moran placed 12/07/2015 Readmitted fever 12/28/2015 Readmitted fever Cr 7 12/29/2015 PCN placed . Stricture dilation + Nephroureteral tube placed 01/29/2016 Admitted staph bacteremia on 02/01/2016 Repeat ureteroplasty 03/04/2016 Repeat ureteroplasty 03/25/2016 N-gram stricture of distal 2-3cm of transplant ureter 05/13/2016 Readmitted with fever 05/20/2016 Repair long stricture of transplanted ureter with Boari flap to the renal pelvis with ligation of the round valley ureter. 05/28/2016 Discharged after post op course notable for prolonged ileus. His N- tube was capped. He has a ureteral stent Currently the patient feels well. No fevers or chills. Eating well. Bowels OK. Pain well controlled. No left flank pain. Managing moran well. Patient Active Problem List Diagnosis ??? Dehydration ??? Ureteral stricture ??? Bacteremia [...] ??? DJD (degenerative joint disease) ??? Hematuria PSHx Bilateral inguinal hernias with [id number] Shoulder surgery Knee arthroscopy Vasectomy Medications: Reviewed Allergies: Reviewed Physical Exam: Vital Signs are reviewed. The patient appears healthy and in no distress. The abdomen is benign. There are no masses or organomegaly. His transplant is not tender. His incision looks good. Tube site OK Lab values are reviewed 02/11 Cr 1.57 [id number] 04/2016 Hb 16.2, Plt 231, Cr 1.44, eGFR 49 06/03/2016 WCC 14, Cr 1.24, eGFR 58 X-rays are reviewed 06/03/2016 Cystogram Prophylactic oral antibiotic: On bactrim Initial AP/lateral films. N-tube and stent in position Filled at 50cc/min initially and then increased to 100cc/min with omnipaque Imaged q 50cc Imaged at capacity ~ 125cc AP/Oblique x 2 and lateral Imaged after drainage AP/Oblique x 2 and lateral No leak. Boari flap looks good. Free reflux into kidney. anastomosis appears wide open Imaging Exposure: See nursing note Impression: #1: Ureteral stricture sp donor transplantation.sp Boari flap. Ligation of round valley left ureter #2: Hx of staph and enterococcal sepsis. Plan: Remove moran/Voiding trial (passed) Remove N-tube 05/10/2016. Remove stent ~ 2 weeks later. Call for fevers chills, abdominal pain/voiding issues etc. * Rahel Contreras - 06/03/2016 10:40 AM EST Pt is scheduled to have tube out on 06/09 Cysto on 06/18 with JDS Pt is aware of dates & times documented in this encounter Plan of Treatment Upcoming Encounters Date Type Department Care Team (Late st Contact Info) Description 04/15/2024 10:00 AM EDT Hospital Encounter Non-[place] [address] Arrived documented as of this encounter Visit Diagnoses Diagnosis Ureteral stricture of left kidney transplant Complications of transplanted kidney documented in this encounter Care Teams Massage Therapy Instructor Relationship Specialty Start Date End Date Urbano Denis DO [address] [place] [address] PCP - General 09/03/12 03/17/22 Hai STANLEY,Ruchi Nurse Clinic Transplant Surgery 07/30/15 documented as of this encounter
--- OUTSIDE RECORDS SUMMARY | 2024-02-14 11:28 | XMS_ITS | Encounter Summary ---
Author Organization [facility] [place] [address] Care Team Providers Care Materials Scheduler Name Role Phone Urbano Denis DO Primary Care Provider Encounter Details Date Type Department Care Team (Latest Contact Info) Description 06/03/2016 8:00 AM EST Laboratory Appointment Lab [address] [place] [phone] H/O kidney transplant; H/O chronic hepatitis Social [...] AM EDT Hospital Encounter Non-[place] [phone] Arrived Pending Results Name Type Priority Associated Diagnoses Date /Time BKV Quant Blood Lab Routine H/O kidney transplant 06/03/2016 9:52 AM EST documented as of this encounter Procedures Procedure Name Priority Date/Time Associated Diagnosis Comments URINALYSIS WITH REFLEX CULTURE STAT 06/03/2016 2:05 PM EST H/O kidney transplant LIVER FIBROSIS PANEL STAT 06/03/2016 9:52 AM EST H/O chronic hepatitis HEMOGRAM STAT 06/03/2016 9:52 AM EST H/O kidney transplant DIFFERENTIAL, AUTOMATED STAT 06/03/2016 9:52 AM EST H/O kidney transplant TACROLIMUS LEVEL STAT 06/03/2016 9:52 AM EST H/O kidney transplant RETICULOCYTE COUNT STAT 06/03/2016 9: 52 AM EST H/O kidney transplant CBC (WITH DIFF) STAT 06/03/2016 9:52 AM EST H/O kidney transplant URIC ACID STAT 06/03/2016 9:52 AM EST H/O kidney transplant PHOSPHORUS STAT 06/03/2016 9:52 AM EST H/O kidney transplant MAGNESIUM STAT 06/03/2016 9:52 AM EST H/O kidney transplant CHOLESTEROL, TOTAL STAT 06/03/2016 9: 52 AM EST H/O kidney transplant ALBUMIN LEVEL STAT 06/03/2016 9:52 AM EST H/O kidney transplant BASIC METABOLIC PANEL STAT 06/03/2016 9:52 AM EST H/O kidney transplant documented in this encounter Results * (ABNORMAL) Urinalysis with reflex Culture (06/03/2016 2:05 PM EST) Glucose, Urine Dipstick Negative Negative mg/dL [facility] Protein, Urine Dipstick 30(A) Negative mg/dL [facility] [...] [facility] pH, Urn (dipstick) 7.0 5.0 - 8.0 [facility] Blood, Urine Dipstick Large(A) Negative mg/dL [facility] Ketone, Urine Dipstick Negative Negative mg/dL [facility] Nitrite, Urine Dipstick Negative Negative [facility] Leukocytes, Urine Dipstick Small(A) Negative [facility] Appearance, Urine Dipstick Hazy(A) Clear [facility] Specific [place] Urine Automated 1.023 1.002 - 1.030 [facility] Color, Urine Dipstick Yellow Yellow [facility] RBC, Urine >182(H) 0 - 3 /HPF [facility] WBC, Urine 20(H) 0 - 3 /HPF [facility] Bacteria, Urine Rare(A) None /HPF [facility] Squamous Epithelial Cells, Urine <1 <=4 /HPF [facility] Calcium Oxalate Crystal, Urine Few(A) None /HPF [facility] Reflex to Culture Dup Culture [facility] Urine specimen obtained by clean catch procedure (specimen) 06/03/2016 2:05 PM EST 06/03/2016 2:05 PM EST Narrative Resulting Agency Comment Spec In Lab Que Amaro MD URINE ORDERABL ES [facility] [place] [address] * (ABNORMAL) Differential, Automated (06/03/2016 9:52 AM EST) Neutrophil % 85.3 % [facility] Neutrophil Absolute 11.89(H) 1.70 - 6.10 x10(3)/mc L [facility] Lymph % 6.8 % [facility] Lymphocytes Abs 1.0 0.9 - 3.2 x10(3)/mc L [facility] Monocyte % 5.8 % [facility] Monocyte Abs 0.8 0.3 - 0.9 x10(3)/[facility] Eos % 1.1 % [facility] Eosinophils Abs 0.2 0.0 - 0.4 x10(3)/[facility] Basophil % 0.6 % [facility] Baso Absolute 0.1 0.0 - 0.1 x10(3)/[facility] Immature Gran % 0.40 % [facility] Comment: Immature granulocytes(IG's)percentage and absolute count will include metamyelocytes, myelocytes, and promyelocytes. Blood smears from CBCs yielding IG's will be scanned manually for concordance. If this scan disagrees with the automated IG or if promyelocytes are noted, a manual differential will be performed. Immature Gran Absolute 0.06(H) 0.00 - 0.04 x10(3)/[facility] Blood specimen (specimen) 06/03/2016 9:52 AM EST 06/03/2016 9:55 AM EST Narrative Resulting Agency Comment Spec In Lab Que Amaro MD HEMATOLOGY ORD ERABLES [facility] [place] [address] * (ABNORMAL) Hemogram (06/03/2016 9:52 AM EST) White Blood Cell 14.0(H) 4.0 - 9.5 x10(3)/[facility] Red Blood Cell 4.34(L) 4.58 - 5.54 x10(6)/[facility] Hemoglobin 13.9 13.7 - 16.5 gm/dL [facility] Hematocrit 40.7 40.5 - 48.5 % [facility] Mean Cell Volume 93.8(H) 82.9 - 93.1 fL [facility] Mean Cell Hemoglobin 32.0 27.5 - 32.1 pg [facility] Mean Cell Hemoglobin Concentration 34.2 32.0 - 35.7 gm/dL [facility] Platelet 287 145 - 357 x10(3)/mc L [facility] RDW Standard Deviation 44.4 36.0 - 45.0 fL [facility] RDW coefficient of variation 13.0 11.4 - 13.8 % [facility] Mean Platelet Volume 8.6 7.6 - 12.9 fL [facility] NRBC% auto 0.0 % [facility] NRBC Absolute 0.000 0.000 - 0.000 x10(3)/mc L [facility] Blood specimen (specimen) 06/03/2016 9:52 AM EST 06/03/2016 9:55 AM EST Narrative Resulting Agency Comment Spec In Lab Que Amaro MD HEMATOLOGY ORD ERABLES Performing Organization Address City/[facility]/ZIP Co de Phone Number [facility] [place] [address] * Albumin Level (06/03/2016 9:52 AM EST) Pathologist [facility] Albumin 4.0 3.2 - 5.2 gm/dL [facility] Blood specimen (specimen) 06/03/2016 9:52 AM EST 06/03/2016 9:55 AM EST Narrative Resulting Agency Comment Spec In Lab Que Amaro MD CHEMISTRY ROCHELLE JENNINGS Performing Organization Address City/[facility]/ZIP Co de Phone Number [facility] [place] [address] * (ABNORMAL) Liver Fibrosis Panel (06/03/2016 9:52 AM EST) Liver Fibrosis Panel FLEXITEST 3(A) [facility] Comment: FLEXITEST 3 TESTS RESULTS--------UNITS--REF. RANGE--- [...] 0.61-0.62 ?A2-A3 0.63-1.00 ?A3 ? severe activity Erurz-3-Dpginvruhxzsh ? 267 ?mg/dL ??106-279 Haptoglobin ? 235 H ?mg/dL ??43-212 Apolipoprotein A1 ? 128 ?mg/dL ??94-176 Total Bilirubin ? 0.9 ?mg/dL ??0.2-1.2 GGT ?55 ?U/L ??3- 70 ALT ?28 ?U/L ??9- 46 Reference ID ?[id number] Footnote ?SEE NOTE The reliability of results [...] The performance characteristics have been determined by [employer], [place]. It has not been cleared or approved by the U.S. Food and Drug Administration. Performance characteristics refer to the analytical performance of the test. [employer], the associated logo, [employer] and all associated [employer] are the registered trademarks of [employer]. All third democrat jacobsen - (R) and (TM) - are the property of their respective owners. (C) [id number] [employer]. All rights reserved. Test performed by: ? [facility] ? [address] ? [place] [address] ? Phone: ??[phone] Director: ??Tanmay Huggins M.D. Test Reported by [employer], [employer], [address] [place], [place] Fer Stoll M.D., Ph.D., Director of Laboratories , [facility] [id number] Blood specimen (specimen) 06/03/2016 9:52 AM EST 06/03/2016 10:00 AM EST Narrative Resulting Agency Comment Spec In Lab Que Amaro MD LAB SEND OUT O RDERABLES [facility] [place] [address] * Tacrolimus level (06/03/2016 9:52 AM EST) Tacrolimus 4.1 ng/mL [facility] Comment: Trough therapeutic: ??5-15 ng/mL Performed by ultra-performance liquid chromatography tandem mass spectrometry (UPLCMS/MS). Blood specimen (specimen) 06/03/2016 9:52 AM EST 06/03/2016 10:55 AM EST Narrative Resulting Agency Comment Spec In Lab Que Amaro MD CHEMISTRY ROCHELLE JENNINGS Performing Organization Address [facility] de Phone Number [facility] [place] [place] [address] * Reticulocyte Count (06/03/2016 9:52 AM EST) Reticulocyte % 1.6 0.7 - 2.6 % [facility] Retic Abs # 0.070 0.030 - 0.120 x10(6)/mcL [facility] Immature Retic% 7.4 0.0 - 15.6 % [facility] Reticulated Hgb 36.7 31.3 - 40.2 pg [facility] Blood specimen (specimen) 06/03/2016 9:52 AM EST 06/03/2016 9:55 AM EST Narrative Resulting Agency Comment Spec In Lab Que Amaro MD HEMATOLOGY ORD ERABLES Performing Organization Address [facility] Phone Number [facility] [place] [address] * Uric acid (06/03/2016 9:52 AM EST) [facility] Signature Uric Acid 6.0 3.5 - 8.5 mg/dL [facility] Blood specimen (specimen) 06/03/2016 9:52 AM EST 06/03/2016 9:55 AM EST Narrative Resulting Agency Comment Spec In Lab Que Amaro MD CHEMISTRY ORDBhargav JENNINGS Performing Organization Address [facility] Co de Phone Number [facility] [place] [address] * (ABNORMAL) Phosphorus (06/03/2016 9:52 AM EST) Phosphorus 2.4(L) 2.5 - 4.5 mg/dL [facility] Blood specimen (specimen) 06/03/2016 9:52 AM EST 06/03/2016 9:55 AM EST Narrative Resulting Agency Comment Spec In Lab Que Amaro MD CHEMISTRY ROCHELLE JENNINGS Performing Organization Address [facility] Co de Phone Number [facility] [place] [place] [address] * (ABNORMAL) Magnesium (06/03/2016 9:52 AM EST) [facility] Magnesium 0.59(L) 0.69 - 1.07 mmol/L [facility] Blood specimen (specimen) 06/03/2016 9:52 AM EST 06/03/2016 9:55 AM EST Narrative Resulting Agency Comment Spec In Lab Que JENNINGS Performing Organization Address [facility] Co de Phone Number [facility] [place] [address] * Cholesterol, total (06/03/2016 9:52 AM EST) [facility] Cholesterol, Total 131 <=199 mg/dL [facility] Comment: Recommendations of the NCEP Adult Treatment Panel for the following risk cutoff thresholds for the [place] population: Desirable: <200 mg/dL Borderline High: 200-239 mg/dL High: > or = 240 mg/dL Blood specimen (specimen) 06/03/2016 9:52 AM EST 06/03/2016 9:55 AM EST Narrative Resulting Agency Comment Spec In Lab Que Amaro MD CHEMISTRY ROCHELLE JENNINGS Performing Organization Address [facility] Co de Phone Number [facility] [place] [address] * (ABNORMAL) Basic Metabolic Panel (non-fasting) (06/03/2016 9:52 AM EST) [facility] Glucose 166 65 - 199 mg/dL [facility] Comment:Diabetes: >=200 mg/d L plus symptoms Blood Urea Nitrogen 16 10 - 20 mg/dL [facility] Creatinine 1.24 0.80 - 1.50 mg/dL [facility] Comment: Please note that the pediatric reference intervals supplied above were not validated at [facility]. Results from pediatric patients should be interpreted in conjunction to the patient's age, height and muscle mass. Sodium 138 135 - 145 mmol/L [facility] Potassium 4.1 3.5 - 5.0 mmol/L [facility] Comment: Please note: ??Patients with WBC >100,000 may have falsely elevated Potassium levels. ??For accurate Potassium quantification in these patients send serum separator tube (gold top) for subsequent determinations. ??Contact the Clinical Chemistry Laboratory if there are any questions. Chloride 96(L) 98 - 107 mmol/L [facility] Carbon Dioxide 28 22 - 31 mmol/L [facility] Anion Gap 14 5 - 15 mmol/L [facility] Calcium 9.7 8.5 - 10.5 mg/dL [facility] Est Glomerular Filtration Rate 58(L) >=60 [facility] Comment: This estimated GFR (eGFR) [...] the following links into your internet browser. [email or web address] Blood specimen (specimen) 06/03/2016 9:52 AM EST 06/03/2016 9:55 AM EST Narrative Resulting Agency Comment Spec In Lab Que Amaro MD CHEMISTRY ROCHELLE JENNINGS [facility] Organization Address City/State/[place] [address] documented in this encounter Visit Diagnoses Diagnosis H/O kidney transplant Kidney replaced by transplant H/O chronic hepatitis Personal history of other diseases of digestive system documented in this encounter Care Teams Materials Scheduler Relationship Specialty Start Date End Date Urbano Denis DO [address] [place] [address] PCP - General 09/03/12 03/17/22 Ruchi Valles RN Nurse Clinic Transplant Surgery 07/30/15 documented as of this encounter
--- OUTSIDE RECORDS SUMMARY | 2024-02-14 11:28 | XMS_ITS | Encounter Summary ---
Author Organization [facility] Address [facility] [address] Care Team Providers Care Linux Kernel Developer Name Role Phone Urbano Denis DO Primary Care Provider [phone] Reason for Visit * Reason Comments Follow-up Encounter Details Date Type Department Care Team (Late st Contact Info) Description 06/18/2016 1:20 PM EST [place] [address] Santosh Arredondo MD [facility] [place] [address] S/P kidney transplant (Primary Dx) Social History Tobacco Use Types [...] Sign Reading Time Taken Comments Blood Pressure 142/106 06/18/2016 1:40 PM EST Pulse 73 06/18/2016 1:40 PM EST Temperature - - Respiratory Rate 16 06/18/2016 1:40 PM EST Oxygen Saturation - - Inhaled Oxygen Concentration - - Weight - - Height - - Body Mass Index - - documented in this encounter Progress Notes * Santosh Arredondo MD - 06/18/2016 1:20 PM EST Patient Name: Cody Bolden Date of Service: 06/18/2016 Primary Care Provider: Urbano Denis DO Reason for Visit: Cody Bolden is a 65 y.o. male comes for a post op visit following repair ofa transplant ureteral stricture with a Boari flap. He also underwent ligatio of the big sandy LEFT ureter 09/17/2015 Donor renal transplant for nodular glomerulosclerosis 10/26/2015 Stent removed Cr 1.49 11/08/2015 Cr 1.89 11/12/2015 Enterococcal bacteremia. U/S mild hydronephrosis 11/23/2015 Cr 2.27 531/2015 Cr 3.1 Whaley placed 12/07/2015 Readmitted fever 12/28/2015 Readmitted fever Cr 7 12/29/2015 PCN placed . Stricture dilation + Nephroureteral tube placed 01/29/2016 Admitted staph bacteremia on 02/01/2016 Repeat ureteroplasty 03/04/2016 Repeat ureteroplasty 03/25/2016 N-gram stricture of distal 2-3cm of transplant ureter 05/13/2016 Readmitted with fever 05/20/2016 Repair long stricture of transplanted ureter with Boari flap to the renal pelvis with ligation of the big sandy ureter. 05/28/2016 Discharged after post op course notable for prolonged ileus. His N- tube was capped. He has a ureteral stent 06/03/2016 Cystogram no leak. Whaley removed. Currently the patient feels well. No fevers or chills. Eating well. Bowels OK. Pain well controlled. No left flank pain. Patient Active Problem List Diagnosis ??? Kidney replaced by transplant ??? [...] ??? Hematuria PSHx Bilateral inguinal hernias with [id number] Shoulder surgery Knee arthroscopy Vasectomy Medications: Reviewed [...] 06/03/2016 WCC 14, Cr 1.24, eGFR 58 06/18/2016 Cr 1.34 X-rays are reviewed 06/03/2016 Cystogram Prophylactic oral [...] wide open Imaging Exposure: See nursing note 06/18/2016 Cystoscopy and stent removal Boari flap patent to the renal pelvis. Stent removed. Impression: #1: Ureteral stricture sp donor transplantation.sp Boari flap. Ligation of big sandy left ureter #2: Hx of staph and enterococcal sepsis. Plan: Creatinine on Thursday and next thu. F/U with me in ~ 1 month coordinate with transplant. Call for fevers chills, abdominal pain/voiding issues etc. * Rahel Contreras - 06/18/2016 1:20 PM EST 06/23 per JDS disregard as pt is admitted documented in this encounter Procedure Notes * Santosh Arredondo MD - 06/18/2016 1:20 PM ESTAssociated Order(s): CYSTO, STENT REMOVAL Pre-Procedure Diagnose(s): S/P kidney transplant Procedure: Flexible Cystoscopy + Stent removal Surgeon: Santosh Arredondo Preoperative Diagnosis: History of Boari flap Post Operative Diagnosis: Successful stent removal Complications: None Procedure: Urinalysis revealed no evidence of an active urinary tract infection. After informed consent was obtained and the external genitalia appropriately cleaned and draped, lidocaine was instilled into the urethra to achieve topical anaesthesia. The flexible telescope was inserted into the urethra and advanced into the bladder under direct vision. The bladder was systematically inspected through 360 degrees with the flexible telescope including retroversion. The anterior urethroscopy was normal. The prostatic fossa was normal. The ureteral orifices were in normal position. The bladder was normal. There were no bladder tumors, mucosal abnormalities or bladder stones. The Boari flap was healthy and I was able to advance the cystoscope up the boari flap into the renal pelvis beside the stent. The flap was widely patent. The stent was grasped and removed. The cystoscope was removed. The patient tolerated the procedure without difficulty. There were no complications. Santosh Arredondo documented in this encounter Plan of Treatment Upcoming Encounters Date Type Department Care Team (Late st Contact Info) Description 04/15/2024 10:00 AM EDT Hospital Encounter Non-Invasive [place] [address] Arrived documented as of this encounter Procedures Procedure Name Priority Date/Time Associated Diagnosis Comments CYSTO, STENT REMOVAL Routine 06/21/2016 1:24 PM EST S/P kidney transplant documented in this encounter Results * Cysto, Stent Removal, clinic (06/21/2016 1:24 PM EST) Narrative Santosh Arredondo MD - 06/21/2016 1:24 PM EST Santosh Arredondo MD ? 06/21/2016 ??1:24 PM Procedure: Flexible Cystoscopy + Stent removal Surgeon: Santosh Arredondo Preoperative Diagnosis: History of Boari flap Post Operative Diagnosis: Successful stent removal Complications: None Procedure: Urinalysis revealed no evidence of an active urinary tract infection. After informed consent was obtained and the external genitalia appropriately cleaned and draped, lidocaine was instilled into the urethra to achieve topical anaesthesia. The flexible telescope was inserted into the urethra and advanced into the bladder under direct vision. The bladder was systematically inspected through 360 degrees with the flexible telescope including retroversion. The anterior urethroscopy was normal. The prostatic fossa was normal. The ureteral orifices were in normal position. The bladder was normal. There were no bladder tumors, mucosal abnormalities or bladder stones. The Boari flap was healthy and I was able to advance the cystoscope up the boari flap into the renal pelvis beside the stent. The flap was widely patent. The stent was grasped and removed. The cystoscope was removed. The patient tolerated the procedure without difficulty. There were no complications. Santosh Arredondo Santosh Arredondo MD URO PROCEDURE W RFL ORDERABLES documented in this encounter Visit Diagnoses Diagnosis S/P kidney transplant- Primary Kidney replaced by transplant documented in this encounter Care Teams Linux Kernel Developer Relationship Specialty Start Date End Date Urbano Denis DO [address] [place] [address] PCP - General 09/03/12 03/17/22 Ruchi Valles RN Nurse Clinic Transplant Surgery 07/30/15 documented as of this encounter
--- OUTSIDE RECORDS SUMMARY | 2024-02-14 11:28 | XMS_ITS | Encounter Summary ---
Author Organization [facility] [place] [address] Care Team Providers Care Skin Fitter Name Role Phone Urbano Denis DO Primary Care Provider [phone] Encounter Details Date Type Department Care Team (Latest Contact Info) Description 06/03/2016 10:00 AM EST Procedure visit Urology at [facility] [place] [address] Other symptoms and signs involving the genitourinary system Social History Tobacco Use Types Packs/Day Years [...] as of this encounter Progress Notes * Jovanna Arzola LPN - 06/03/2016 10:00 AM EST Objective: Patient presents today for a cystogram. This is a well looking (/male) in no acute distress. Per Dr. Arredondo,Who is on bactrim so didn't get a antibiotic prior to cystogram. Urodynamics/Injection of Contrast The patient was filled at a rate of 50 mL/min via moran. Contrast was used 250 ml of iohexol (omnipaque) 350mg/ml in 750 of sterile water. In this patient we used: Solution Ml of contrast 1000 250 500 125 - bill for 130 ml 400 100 300 75 - bill for 65 ml 250 62.5 -bill for 60 ml 200 50 100 25 50 12.5 Cystogram: MGy: 5.16; mGym 0.0927; fluoro time 0.2 minutes. Findings: (/no leak) Voiding trial (preformed) 100ml normal saline instilled via moran catheter. Balloon deflated. Moran gently removed. Patient voided 100 ml's. All instructions and literature reviewed with patient. Patient verbalized understanding of instructions. Supplies given: none PVR: 0cc measured in the supine position with the bladder scanner shortly after the patient had voided. Jovanna Follow-up: In IR for nephrostomy tube removal JOVANNA ARZOLA LPN documented in this encounter Plan of Treatment Upcoming Encounters Date Type Department Care Team (Late st Contact Info) Description 04/15/2024 10:00 AM EDT Hospital Encounter Non[place] [address] Arrived documented as of this encounter Procedures Procedure Name Priority Date/Time Associated Diagnosis Comments URINE CULTURE Routine 06/03/2016 10:44 AM EST Other symptoms and signs involving the genitourinary system documented in this encounter Results * Urine culture Clean Catch Urine (06/03/2016 10:44 AM EST) Urine Culture No growth (Less than 1,000 cfu/ml). [facility] Urine specimen obtained via indwelling urinary catheter (specimen) 06/03/2016 10:44 AM EST 06/03/2016 1:17 PM EST Narrative Resulting Agency Comment Spec In Lab Santosh Arredondo MD MICROBIOLOGY - GENER AL ORDERABLES [facility] [place] [address] documented in this encounter Visit Diagnoses Diagnosis Other symptoms and signs involving the genitourinary system documented in this encounter Care Teams Skin Fitter Relationship Specialty Start Date End Date Urbano Denis DO [address] [place] [address] PCP - General 09/03/12 03/17/22 Ruchi Valles RN Nurse Clinic Transplant Surgery 07/30/15 documented as of this encounter
[2024-02-14 11:29] LABS: Absolute Basophil Count 0.05 10^3/uL (0.0-0.2); Absolute Monocyte Count 0.96 10^3/uL (0.1-0.8); Absolute Neutrophil Count 8.86 10^3/uL (1.2-6.7)
--- OUTSIDE RECORDS SUMMARY | 2024-02-14 11:29 | XMS_ITS | Encounter Summary ---
Author Organization [facility] [place] [address] Care Team Providers Care Spanish Teacher Name Role Phone Urbano Denis DO Primary Care Provider Reason for Visit * Auth/Cert Specialty Diagnoses / Procedures Referred By Humberto t Referred To Contact Diagnoses Dehydration Referral ID Status Reason Start Date Expiration Date Visits Re quested Visits Authorized [id number] 1 1 Encounter Details Date Type Department Care Team (Late st Contact Info) Description 05/13/2016 4:29 PM EST - 05/28/2016 2:34 PM [facility] Hospital Encounter [address] [place] [address] Que Amaro MD [facility] [place] [address] Kitty Marie MD [facility] [place] [address] Dehydration Discharge Disposition: Home Social History Tobacco Use [...] Sign Reading Time Taken Comments Blood Pressure 164/82 05/28/2016 11:30 AM EST Pulse 65 05/28/2016 11:30 AM EST Temperature 36.5 ??C (97.7 ??F) 05/28/2016 11:[address] Respiratory Rate 20 05/28/2016 11:30 AM EST Oxygen Saturation 94% 05/28/2016 11:30 AM EST Inhaled Oxygen Concentration - - Weight 93.2 kg (205 lb 7.5 oz) 05/28/2016 3:15 A M EST Height 177.8 cm (5' 10) 05/13/2016 4:33 PM EST Body Mass Index 29.48 05/13/2016 4:33 PM EST documented in this encounter Discharge Summaries * Epifanio Torre MD - 05/28/2016 10:52 AM EST Inpatient - Discharge Summary Patient Name: Cody Bolden Patient Age: 65 y.o. Birthdate: 1950 Admit date: 05/13/2016 Discharge date and time: 05/28/2016 Attending Physician: Que Amaro,* Primary Diagnosis: Ureteral stricture, bacteremia, UTI Secondary Diagnosis: Active Hospital Problems Diagnosis ??? Dehydration Resolved Hospital Problems Diagnosis Date Resolved No resolved problems to display. Active Non-Hospital Problems Diagnosis ??? Ureteral stricture ??? Bacteremia due to [...] ??? DJD (degenerative joint disease) ??? Hematuria HPI (per Dr. Haynes's note 05/13/16): Cody Bolden is s/p Kidney transplant on 09/16/2015 (Kidney). He was recently discharged from the hospital after treatment for coag negative staph bacteremia (broadly resistant). He is on daily daptomycin infusions. Since discharge he has not been feeling great, feels he is losing weight, doesn't have much appetite, feels fatigued and worn out. Had a mild temperature a couple days ago of 99F but otherwise denies fevers, one mild episode of chills that passed quickly yesterday. He has diarrhea 1-2x per day. He is due for surgery to reconstruct his ureter next Thursday. Laboratory work indicating hemoconcentration and urine is concentrated. Renal allograft function isnormal and intact, but the patient also found to be hypotensive in the setting of managing his bacteremia. Admitted for rehydration therapy and screening for sepsis prior to elective ureteral repair. Operations/Major Procedures: Operations: 05/20/2016 Surgeon(s) and Role: Panel 1: * Moy Arredondo MD - Primary * Pako Booth MD - Resident-Wringer Operator Panel 2: * Que Amaro MD - Primary: Procedure(s): @URETERONEOCYSTOSTOMY ANASTOMOSIS OF SINGLE URETER TO BLADDER Hospital Course: Admitted to Transplant surgery on 05/13. Resuscitated with normal saline. Started on vancomycin to continue coverage of his previous coag negative staph bacteremia. Urine culture showed GNRs and zosynwas started, later narrowed to Ancef and then Keflex per ID consult recommendations when speciationshowed sensitive klebsiella pneumoniae. He completed this 14 day course on 05/28/16. His blood pressure was elevated over the first few days of hospitalization, so metoprolol 12.5mg BID was started. On 05/20/16, he was taken to the Operating Room with the assistance of Urology, who performed resection of the stenotic ureter with creation of Boari flap. Ureter was sent to pathology, which revealed benign ureter with chronic inflammation. Post-operative course was complicated by ileus. By POD #8,he was having bowel movements (with a bowel regimen) and passing flatus, hiccups improved. He was tolerating a diet of multiple (5-8) small meals per day. Of note, during the stay, Urology recommended keeping whaley and nephrostomy tube in on discharge and they will discuss removal on follow-up. HisPlavix continues to be held (was started for prior strokes of indeterminate etiology) and will be restarted as an outpatient after nephrostomy tube is removed. Please see below for day-by-day post-operative course. His postoperative course is as below: POD 0 - s/p Boari flap from bladder to proximal transplant ureter POD 1 - Tolerating clears, good UOP. Nephrostomy tube capped. ?? POD 2 - No increase in LEEANNA output after capped nephrostomy tube. No return of bowel function yet POD 3 - No return of bowel function POD 4 - Advanced to regular diet, tolerating PO. IV to PO meds transitioned. No ROBF. POD 5 - Hypertensive to 180s requiring hydralazine. Hiccups, heartburn. Small amount of flatus/stool but not convincing ROBF. LEEANNA drain removed by urology POD 6 - Hiccups continue without N/V. KUB showing moderately distended colon with gas. Hypertensiveto 180s requiring hydralazine x1. Leukocytosis evaluated with infectious workup. CXR remarkable only for small bilateral pleural effusions. Lasix x1 for hypertension and mild hypoxemia. Margret drain removed by urology. POD 7 - Ambulating without issue. Vitals within normal limits. UOP adequate, tolerating PO, still distended. POD 8 - Having BMs, passing flatus, still with some distention. Tolerating oral intake. Discharged on 5-8 small meals daily. Pending Lab Data at Discharge: None Condition at Discharge: Stable Important Studies and Lab Data: Labs: Recent Results (from the past 24 hour(s)) Basic Metabolic Panel (non-fasting) Result Value Ref Range Glucose Lvl 181 65 - 199 mg/dL BUN 19 10 - 20 mg/dL Creatinine 1.16 0.80 - 1.50 mg/dL Sodium 141 135 - 145 mmol/L Potassium 3.8 3.5 - 5.0 mmol/L Chloride 104 98 - 107 mmol/L CO2 23 22 - 31 mmol/L Anion Gap 14 5 - 15 mmol/L Calcium 9.4 8.5 - 10.5 mg/dL Estimated GFR >60 >=60 Phosphorus Result Value Ref Range Phosphorus 2.7 2.5 - 4.5 mg/dL Magnesium Result Value Ref Range Magnesium 0.68 (L) 0.69 - 1.07 mmol/L Hemogram Result Value Ref Range WBC 12.7 (H) 4.0 - 9.5 x10(3)/mcL RBC 4.20 (L) 4.58 - 5.54 x10(6)/mcL Hemoglobin 13.8 13.7 - 16.5 gm/dL Hematocrit 39.6 (L) 40.5 - 48.5 % MCV 94.3 (H) 82.9 - 93.1 fL MCH 32.9 (H) 27.5 - 32.1 pg MCHC 34.8 32.0 - 35.7 gm/dL Platelets 276 145 - 357 x10(3)/mcL RDWSD 45.1 (H) 36.0 - 45.0 fL RDWCV 13.2 11.4 - 13.8 % MPV 8.5 7.6 - 12.9 fL nRBC % Auto 0.0 % nRBC Abs Auto 0.000 0.000 - 0.000 x10(3)/mcL Differential, Automated Result Value Ref Range Neutrophils % 82.6 % Neutr Abs (ANC) 10.51 (H) 1.70 - 6.10 x10(3)/mcL Lymphocytes % 9.7 % Lymphocytes Abs 1.2 0.9 - 3.2 x10(3)/mcL Monocytes % 5.3 % Monocyte Abs 0.7 0.3 - 0.9 x10(3)/mcL Eosinophils % 1.5 % Eosinophils Abs 0.2 0.0 - 0.4 x10(3)/mcL Basophils % 0.4 % Basophils Abs 0.0 0.0 - 0.1 x10(3)/mcL Immature Gran % 0.50 % Ayesha Gran Abs 0.07 (H) 0.00 - 0.04 x10(3)/mcL Studies: 05/21 - KUB FINDINGS: A percutaneous stent projects over the left iliac wing with tip projecting over the superior left sacroiliac joint, likely region of the transplant kidney pelvis. A second stent extends from the same region with distal end projecting over the expected region of the bladder. A surgical drain is in place with tip also projecting over the left sacrum. There is a normal bowel gas pattern. Visualized lung bases are clear. Epidural catheter is partially visualized. 05/20 - Left renal transplant ultrasound FINDINGS: 1. Flow is visualized within the mid and lower poles. 2. Normal to borderline elevated resistive indices. 3. No collecting system dilatation. 4. Stent visualized. 05/20 - Pathology: DIAGNOSIS A - Left transplant kidney ureter: ? 1. Benign ureter with chronic inflammation. ? 2. No evidence of viral inclusions. B - [place] left ureter: ? 1. Benign ureter. ? 2. No evidence of viral inclusions. SPECIMEN PROCESSING A - ??Labeled/Fixative: Left transplant kidney ureter, fresh. Quantity/Size: Single, 2.6 x 1.5 x 1.2 cm. Tissue Description: Tubular portion of pink-oro tissue. ??One end of the specimen ??is opened and the opposite end is closed and marked with an undesignated suture. ??Sectioning reveals a thickened wall measuring up to 0.4 cm and a stellate lumen. ??The mucosa is glistening, pink-oro. Sections/Processing: (1) Sections from the ends of the specimen; (2) central cross- sections. ??(R2) B - ??Labeled/Fixative: [place] left ureter, fresh. Quantity/Size: Single, 8.2 x 0.4 x 0.4 cm. Tissue Description: Unoriented segment of ureter. ??The wall averages 0.2 cm in ??thickness. there is a stellate lumen. ??The mucosa is glistening pink-oro. Exam: Temp: [36.5 ??C (97.7 ??F)-36.9 ??C (98.4 ??F)] Heart Rate: [54-71] Resp: [16-18] BP: (141-194)/(64-152) SpO2: [91 %-94 %] Heart Rate from SPO2: [54 bpm-80 bpm] I/O last 3 completed shifts: In: 2962.5 [P.O.:1740; I.V.:1222.5] Out: 2425 [Urine:2425] I/O this shift: In: 360 [P.O.:360] Out: 200 [Urine:200] General: NAD, resting comfortably, pleasant, conversant HEENT: PERRL, anicteric sclerae CVS: RRR Pulm: comfortable on RA Abd: soft, moderately distended, tympanitic. Midline incision closed with dermabond and c/d/i. LEEANNA drain with s/s output : LLQ nephrostomy capped. Whaley with light yellow urine. ?? Ext: wwp Neuro: nonfocal,moving all four extremities spontaneously Discharge to: Home Discharge Conditions/Prognosis: Stable Discharge Medications: Your Medications New Medications Dose Details aspirin 81 mg Chew Take 81 mg by mouth daily. 81 mg Quantity: 30 tablet Refills: 3 docusate sodium 100 mg Cap Commonly known as: COLACE Take 1 capsule by mouth 2 times daily. Take until you are having regular bowel movements or while still on narcotics 100 mg Quantity: 30 capsule Refills: 1 hydrALAZINE 25 mg Tab Commonly known as: APRESOLINE Take 1 tablet by mouth 3 times daily. 25 mg Quantity: 90 tablet Refills: 1 lactulose 20 gram/30 mL Soln Commonly known as: CHRONULAC Take 15 mLs by mouth daily as needed for up to 14 days. 10 g Quantity: 420 mL Refills: 0 meTOPROLOL tartrate 50 mg Tab Commonly known as: LOPRESSOR Take 1 tablet by mouth 2 times daily. 50 mg Quantity: 60 tablet Refills: 11 oxyCODONE 5 mg Tab Commonly known as: ROXICODONE Take 1 tablet by mouth every 4 hours as needed for Pain. 5 mg Quantity: 30 tablet Refills: 0 polyethylene glycol 17 gram Pwpk Commonly known as: MIRALAX Take 17 g by mouth daily as needed. For severe constipation 17 g Quantity: 3 each Refills: 0 senna 8.6 mg Tab Commonly known as: SENOKOT Take 1 tablet by mouth 2 times daily. Take until you are having regular bowel movements or while still on narcotics 1 tablet Quantity: 60 tablet Refills: 11 senna-docusate 8.6-50 mg Tab Commonly known as: PERICOLACE Take 2 tablets by mouth 2 times daily. 2 tablet Quantity: 60 tablet Refills: 11 sulfamethoxazole-trimethoprim 400-80 mg Tab Commonly known as: BACTRIM;SEPTRA Take 1 tablet by mouth daily. 1 tablet Quantity: 60 tablet Refills: 2 Continued medications with new dosing Dose Details Magnesium Gluconate 27 mg (500 mg) Tab Take 6 tablets at breakfast and at dinner What changed: - how much to take - how to take this - when to take this - additional instructions Quantity: 360 tablet Refills: 3 potassium phosphate (monobasic) 500 mg Tbso Commonly known as: K-PHOS Take 3 tabs at lunch time and 3 tabs at bedtime What changed: - how much to take - how to take this - when to take this - additional instructions Quantity: 180 tablet Refills: 3 * tacrolimus 0.5 mg Cap Commonly known as: PROGRAF Take 1 capsule by mouth nightly for 180 days. What changed: - medication strength - how much to take - when to take this 0.5 mg Quantity: 60 capsule Refills: 2 * tacrolimus 1 mg Cap Commonly known as: PROGRAF Take 1 capsule by mouth daily for 180 days. What changed: You were already taking a medication with the same name, and this prescription was added. Make sure you understand how and when to take each. 1 mg Quantity: 60 capsule Refills: 2 * Notice: This list has 2 medication(s) that are the same as other medications prescribed for you. Read the directions carefully, and ask your doctor or other care provider to review them with you. Continued medications, unchanged Dose Details acetaminophen 500 mg Tab Commonly known as: TYLENOL Take 1,000 mg by mouth every 6 hours as needed for Pain. 1000 mg Refills: 0 calciTRIol 0.5 mcg Cap Commonly known as: ROCALTROL Take 1 capsule by mouth daily. 0.5 mcg Quantity: 30 capsule Refills: 11 mycophenolate 250 mg Cap Commonly known as: CELLCEPT Take 1 capsule by mouth 2 times daily. 250 mg Refills: 0 omeprazole 20 mg Cpdr Commonly known as: PriLOSEC Take 20 mg by mouth daily as needed. 20 mg Refills: 0 SYNTHROID 100 mcg Tab Take 100 mcg by mouth daily. Generic drug: levothyroxine 100 mcg Refills: 0 tamsulosin 0.4 mg Cp24 Commonly known as: FLOMAX Take 1 capsule by mouth nightly. 0.4 mg Quantity: 30 capsule Refills: 11 STOPPED Medications clopidogrel 75 mg Tab Commonly known as: PLAVIX DILTiazem 120 mg Cp24 Commonly known as: DILTIAZEM CD valGANciclovir 450 mg Tab Commonly known as: VALCYTE Updated Allergies/ADRs: No Known Allergies Follow-up Recommendations for Providers: None PCP: Urbano Denis, Scheduled Appointments: Future Appointments Date Time Provider Department Center 06/03/2016 8:00 AM LAB, [facility] 06/03/2016 9:00 AM Que Amaro MD [facility] 2M [facility] 06/03/2016 10:00 AM URODYNAMIC LAB [facility] 06/03/2016 10:00 AM UROLOGY, NURSE [facility] 06/03/2016 10:40 AM Moy Arredondo MD [facility] 06/25/2016 10:00 AM Franko Kim MD [facility] In[facility]c 5C [facility] 09/15/2016 9:00 AM LAB, THREE L Lab 3L [facility] 09/15/2016 10:00 AM Tal Eagle MD [facility] Trans [address] [place] [address] Outpatient Services/Studies: XR Fluoro Cystogram Standing Status: Future Standing Exp. Date: 05/27/17 Question Response Notes Where will study be performed? [facility]- Radiology Reason for exam and clinical history: s/p Boari flap to transplant kidney for long ureteral stricture, assess for urine leak Instructions Given to Patient at Discharge:. An After Visit Summary was printed and given to the patient. Patient Instructions Instructions following Admission: ?? You have been admitted prior to your elective surgical procedure for dehydration and antibiotic therapy for a urinary tract infection. Afterwards, you underwent a Boari flap reconstruction to fix a diseased ureter, which went well. Your bowels took some time to wake up. This is called an ileus and is common after major abdominal surgeries. Immunosupression: ?? Please follow strict hand hygiene to prevent infection. Wash you hands thoroughly with soap and water after using the bathroom. Wash hands before and after meals or serving/ touching food ?? You are more susceptible to infection. Avoid being around anyone who is sick, coughing, sniffling, or has a fever. Avoid close spaces such as airplanes, movie theaters, and restaurants for at least one month following your surgery. ?? Avoid uncooked meats and raw eggs until cleared by the transplant team. ?? Avoid direct contact with pet or wild birds, litter boxes, and fish tanks. Contact with dogs andcats is reasonably safe. ?? Do not start or stop any medications without notifying the transplant team. This can affect the level of your immunosuppression, which is dangerous. ?? Monitor the medications you are on and obtain refills ahead of time. You should not miss a dose of immunosuppression for any reason. Call several days ahead to place refill requests. Activity: As tolerated, within reason. ?? Diet: You may eat a regular diet. However, instead of large meals, you must eat 6-8 small meals perday. Supplement your meals with Boost shakes (3-4 shakes per day) for additional nutrients and protein. Take it slow. If you feel nauseous or you vomit, back off your diet for the rest of the day. Ifyou continue to vomit and feel unwell, contact the Transplant Department for advice. Frequent vomiting may make you dehydrated, which is dangerous for your kidney function. Bowel Regimen: Until your bowel function completely normalizes and you are not on narcotic pain medications, continue daily bowel regimen of docusate (COLACE) and sennokot (SENNA). If you start having frequent, loose stools, stop these. If you are very constipated, take miralax. Blood Pressure: Check your blood pressure daily. If it is > 180 mmHg two days in a row, fill your prescription for hydralazine 25 mg three times daily and start taking it. Nephrostomy: Keep nephrostomy capped. Record urine output from whaley catheter (the catheter in yourpenis). Call Doctor for: Any fevers greater than 101.3 F, worsening abdominal pain, diarrhea, nausea or vomiting. Follow-up: You have multiple follow up appointments scheduled. See the table below. You will see Dr. Amaro and Dr. Arredondo, who will manage your whaley and nephrostomy tube. Appointments will be mailed to you and/or you may be called with a date and time from the clinic. If you do not hear from the clinic within 1 week of your appointment please call to confirm date and time of your appointment.Phone number: [phone] Future Appointments Date Time Provider Department Center 06/03/2016 8:00 AM LAB, THREE L Lab [facility]L [facility] 06/03/2016 9:00 AM Que Amaro MD [facility] 2M [facility] 06/03/2016 10:00 AM URODYNAMIC LAB [facility] 06/03/2016 10:00 AM UROLOGY, NURSE [facility] 06/03/2016 10:40 AM Moy Arredondo MD [facility] 06/25/2016 10:00 AM Franko Kim MD [facility] In[facility]c 5C [facility] 09/15/2016 9:00 AM LAB, THREE L Lab 3L [facility] 09/15/2016 10:00 AM Tal Eagle MD [facility] 2M [facility] Wound Care: - Keep your incision clean and dry. If there is drainage, apply a clean gauze dressing daily and asneeded. You can remove your drain site dressing tomorrow. Keep a bandaid over it until it scabs over. - You may shower. However, avoid baths or soaking for long periods of time until directed by your physician Activity: No heavy lifting for six weeks; do not lift more than ten pounds or strain. ?? Orders for After Discharge: LAB DRAWS: Prior to each clinic visit, you will have your labs drawn to monitor many things, including your transplant function, your immune system, and your medication side effects. In order to obtain an accurate measurement of your immunosuppression (e.g. tacrolimus, sirolimus, or cyclosporin), you should hold your morning dose on the day of your appointment until your labs are drawn. Remember to bring your medications with you to your appointment. You can take your immunosuppression medication after your bloodwork is drawn. You should also bring your intake/output log and your medication card. Prior to each appointment, you will receive a print-out of the medication list on your chart. Please review your print-out and notify your provider of any changes that need to be made. Provider Contact Information: If you have any questions, or need to report a problem, you can call the Solid Organ Transplant Department anytime (day, night, weekend, holiday) at . After hours, please follow the instructions on the message. You can also reach the waste reduction coordinator after hours by calling (ask for the waste reduction coordinator on-call). General Instructions None Provider Contact Information: If you have any questions or concerns during daytime hours, please call the Transplant clinic at [phone]. If you have questions or concerns during the night or weekends, please call [phone] ask to be transferred to the enrollment coordinator personal banking representative. Signed: EPIFANIO TORRE MD 05/28/2016 documented in this encounter Discharge Instructions * Patient Instructions* Epifanio Torre MD - 05/25/2016 6:30 AM EST Instructions following Admission: ?? You have been admitted prior to your elective surgical procedure for dehydration and antibiotic therapy for a urinary tract infection. Afterwards, you underwent a Boari flap reconstruction to fix a diseased ureter, which went well. Your bowels took some time to wake up. This is called an ileus and is common after major abdominal surgeries. Immunosupression: ?? Please follow strict hand hygiene to prevent infection. Wash you hands thoroughly with soap and water after using the bathroom. Wash hands before and after meals or serving/ touching food ?? You are more susceptible to infection. Avoid being around anyone who is sick, coughing, sniffling, or has a fever. Avoid close spaces such as airplanes, movie theaters, and restaurants for at least one month following your surgery. ?? Avoid uncooked meats and raw eggs until cleared by the transplant team. ?? Avoid direct contact with pet or wild birds, litter boxes, and fish tanks. Contact with dogs andcats is reasonably safe. ?? Do not start or stop any medications without notifying the transplant team. This can affect the level of your immunosuppression, which is dangerous. ?? Monitor the medications you are on and obtain refills ahead of time. You should not miss a dose of immunosuppression for any reason. Call several days ahead to place refill requests. Activity: As tolerated, within reason. ?? Diet: You may eat a regular diet. However, instead of large meals, you must eat 6-8 small meals perday. Supplement your meals with Boost shakes (3-4 shakes per day) for additional nutrients and protein. Take it slow. If you feel nauseous or you vomit, back off your diet for the rest of the day. Ifyou continue to vomit and feel unwell, contact the Transplant Department for advice. Frequent vomiting may make you dehydrated, which is dangerous for your kidney function. Bowel Regimen: Until your bowel function completely normalizes and you are not on narcotic pain medications, continue daily bowel regimen of docusate (COLACE) and sennokot (SENNA). If you start having frequent, loose stools, stop these. If you are very constipated, take miralax. Blood Pressure: Check your blood pressure daily. If it is > 180 mmHg two days in a row, fill your prescription for hydralazine 25 mg three times daily and start taking it. Nephrostomy: Keep nephrostomy capped. Record urine output from whaley catheter (the catheter in yourpenis). Call Doctor for: Any fevers greater than 101.3 F, worsening abdominal pain, diarrhea, nausea or vomiting. Follow-up: You have multiple follow up appointments scheduled. See the table below. You will see Dr. Amaro and Dr. Arredondo, who will manage your whaley and nephrostomy tube. Appointments will be mailed to you and/or you may be called with a date and time from the clinic. If you do not hear from the clinic within 1 week of your appointment please call to confirm date and time of your appointment.Phone number: [phone] Future Appointments Date Time Provider Department Center 06/03/2016 8:00 AM LAB, THREE L Lab 3L [facility] 06/03/2016 9:00 AM Que Amaro MD [facility] 06/03/2016 10:00 AM URODYNAMIC LAB [facility] 06/03/2016 10:00 AM UROLOGY, NURSE [facility] 06/03/2016 10:40 AM Moy Arredondo MD [facility] 06/25/2016 10:00 AM Franko Kim MD [facility] 5C [facility] 09/15/2016 9:00 AM LAB, THREE L Lab 3L [facility] 09/15/2016 10:00 AM Tal Eagle MD [facility] Wound Care: - Keep your incision clean and dry. If there is drainage, apply a clean gauze dressing daily and asneeded. You can remove your drain site dressing tomorrow. Keep a bandaid over it until it scabs over. - You may shower. However, avoid baths or soaking for long periods of time until directed by your physician Activity: No heavy lifting for six weeks; do not lift more than ten pounds or strain. ?? Orders for After Discharge: LAB DRAWS: Prior to each clinic visit, you will have your labs drawn to monitor many things, including your transplant function, your immune system, and your medication side effects. In order to obtain an accurate measurement of your immunosuppression (e.g. tacrolimus, sirolimus, or cyclosporin), you should hold your morning dose on the day of your appointment until your labs are drawn. Remember to bring your medications with you to your appointment. You can take your immunosuppression medication after your bloodwork is drawn. You should also bring your intake/output log and your medication card. Prior to each appointment, you will receive a print-out of the medication list on your chart. Please review your print-out and notify your provider of any changes that need to be made. Provider Contact Information: If you have any questions, or need to report a problem, you can call the Solid [facility] Transplant Department anytime (day, night, weekend, holiday) at . After hours, please follow the instructions on the message. You can also reach the waste reduction coordinator after hours by calling (ask for the waste reduction coordinator on-call). documented in this encounter Medications at Time of Discharge Medication Sig Dispensed Refills Start Date End Date aspirin 81 mg Tablet, Chewable Take 81 mg by mouth daily. 30 tablet 3 05/28/2016 06/24/2016 lactulose (CHRONULAC) 20 gram/30 mL Solution Take 15 mLs by mouth daily as needed for up to 14 days. 420 mL 05/28/2016 06/03/2016 Magnesium Gluconate 27 mg (500 mg) Tablet Take 6 tablets at breakfast and at dinner 360 tablet 3 05/28/2016 09/09/2017 potassium phosphate, monobasic, (K-PHOS) 500 mg Tablet, Soluble Take 3 tabs at lunch time and 3 tabs at bedtime 180 tablet 3 05/28/2016 06/25/2016 tacrolimus (PROGRAF) 1 mg Capsule Take 1 capsule by mouth daily for 180 days. 60 capsule 2 05/28/2016 06/25/2016 senna-docusate (PERICOLACE) 8.6-50 mg Tablet Take 2 tablets by mouth 2 times daily. 60 tablet 11 05/28/2016 06/03/2016 polyethylene glycol (MIRALAX) 17 gram Powder in Packet Take 17 g by mouth daily as needed. For severe constipation 3 each 05/28/2016 06/03/2016 sulfamethoxazole-tri methoprim (BACTRIM;SEPTRA) 400-80 mg Tablet Take 1 tablet by mouth daily. 60 tablet 2 05/28/2016 03/25/2017 oxyCODONE (ROXICODONE) 5 mg Tablet Take 1 tablet by mouth every 4 hours as needed for Pain. 30 tablet 05/28/2016 06/18/2016 docusate sodium (COLACE) 100 mg Capsule Take 1 capsule by mouth 2 times daily. Take until you are having regular bowel movements or while still on narcotics 30 capsule 1 05/28/2016 06/03/2016 senna (SENOKOT) 8.6 mg Tablet Take 1 tablet by mouth 2 times daily. Take until you are having regular bowel movements or while still on narcotics 60 tablet 11 05/28/2016 06/03/2016 hydrALAZINE (APRESOLINE) 25 mg Tablet Take 1 tablet by mouth 3 times daily. 90 tablet 1 05/28/2016 06/03/2016 meTOPROLOL tartrate (LOPRESSOR) 50 mg Tablet Take 1 tablet by mouth 2 times daily. 60 tablet 11 05/27/2016 06/04/2016 tacrolimus (PROGRAF) 0.5 mg Capsule Take 1 [...] 1 capsule by mouth nightly. 30 capsule 11/15/2015 06/18/2016 calciTRIol (ROCALTROL) 0.5 mcg Capsule Take 1 capsule by mouth daily. 30 capsule 11/15/2015 06/18/2016 documented as of this encounter Progress Notes * Ryan Fuchs RN - 05/28/2016 1:46 PM EST Discharge AVS reviewed with patient & his . Verbalized understanding. Leg bag change/whaley care teaching given with supplies. Encourage po fluids, understands he will have to document urine output. Tolerating Po slowly, awarethat he is to take sm meals 4-6times/day with supplement drinks. Up ad chiquita. Steady, Pain managed well with oxycodone. Encourage ambulation. IV discont. Site benign. Nephrostomy site with dressing clean dry, remained capped. Home with at this time. Fu appointment next Thursday with urology, kidney transplant team. Ryan Fuchs RN * Emily Martinez MD - 05/28/2016 7:51 AM EST INPATIENT DAILY PROGRESS NOTE Patient Name: Cody Bolden Patient Age: 65 y.o. Birthdate: 1950 Admit date: 05/13/2016 Attending Physician: Que Amaro,* Summary of Assessment/Plan: Patient doing well POD8. Neph tube to remain capped at this time, anticipating d/c with neph tube in place. Margret drain removed ID: Cody Bolden is a 65 y.o. 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 Most recently with coag neg staph bacteremia and on daily daptomycin infusions, UTI during current admission with klebsiella cx. He is now s/p reimplantation of this transplant (left side) 24hr events/S: Had a larger BM overnight Tolerating regular diet, hiccups resolved Ambulating well independently O: Last value Range last 24hrs Temperature Temp: 36.6 ??C (97.9 ??F) Temp: [36.5 ??C (97.7 ??F)-36.9 ??C (98.4 ??F)] Heart Rate Heart Rate: 62 Heart Rate: [54-62] Blood Pressure BP: 146/64 BP: (141-214)/(64-107) Respiratory Rate Resp: 18 Resp: [16-18] SpO2 SpO2: 91 % SpO2: [91 %-94 %] 05/27 0701 - 05/28 0700 In: 1740 [P.O.:1740] Out: 1475 [Urine:1475] Regular diet Physical Exam: General: NAD, A&Ox3, resting in bed, cooperative HEENT: normocephalic, anicteric sclerae CVS: RRR, no m/r/g Pulm: CTAB, no wheezes or rhonchi Abd: soft, non-tender, non-distended. No guarding. Abdominal midline incision sites c/d/i. Skin: warm, dry Ext: well perfused, no edema. Neuro: Grossly intact, moving all four extremities spontaneously. Lines/Drains: Nephrostomy tube (capped) Whaley Recent Labs 05/27/16 0543 05/26/16 0430 WBC 13.5* 13.0* HGB 13.1* 14.8 HCT 38.5* 43.2 PLATELET 246 304 Recent Labs 05/27/16 0543 05/26/16 1657 05/26/16 0430 05/25/16 1638 NA 141 -- 143 140 K 3.8 4.5 3.7 4.0 CL 102 -- 100 99 CO2 24 -- 23 25 BUN 17 -- 20 12 CREATININE 1.04 -- 1.32 1.10 GLUCOSE 148 -- 224* 189 CALCIUM 9.0 -- 9.8 9.2 MAGNESIUM 0.73 -- 0.82 0.74 PHOS 3.2 -- 3.0 -- Imaging: AM CXR 05/21: FINDINGS: A percutaneous stent projects over the left iliac wing with tip projecting over the superior left sacroiliac joint, likely region of the transplant kidney pelvis. A second stent extends from the same region with distal end projecting over the expected region of the bladder. A surgical drain is in place with tip also projecting over the left sacrum. There is a normal bowel gas pattern. Visualized lung bases are clear. Epidural catheter is partially visualized. ASSESSMENT: Cody Bolden is a 65 y.o. male s/p Boari flap from bladder to proximal transplant ureter on alf antibiotics for coag negative staph bacteremia. Keep PCN in place and capped at this time. Will need fluoro cystogram prior to whaley catheter removal. PLAN: - Appreciate ID recs for appropriate antibiotic regimen given. - Neph tube to remain capped and in place - Further care per transplant - Urology will continue to follow, out[atient follow up/cystogram has been arranged DISPO: Stable on floor. Code status: FULL * Francois Bowie MD - 05/27/2016 9:40 AM EST General Surgery Resident Inpatient Progress Note ID: Cody Bolden is a 65 y.o. male with Hx of renal transplant on 09/18 complicated by ureteralstenosis, staph bacteremia. Admitted for dehydration, UTI, now resolved and s/p Boari flap. Hospital course: POD 0 - s/p Boari flap from bladder to proximal transplant ureter POD 1 - Tolerating clears, good UOP. Nephrostomy tube capped. POD 2 - No increase in LEEANNA output after capped nephrostomy tube. No return of bowel function yet POD 3 - No return of bowel function POD 4 - Advanced to regular diet, tolerating PO. IV to PO meds transitioned. No ROBF. POD 5 - Hypertensive to 180s requiring hydralazine. Hiccups, heartburn. Small amount of flatus/stool but not convincing ROBF. LEEANNA drain removed by urology POD 6 - Hiccups continue without N/V. KUB showing moderately distended colon with gas. Hypertensiveto 180s requiring hydralazine x1. Leukocytosis evaluated with infectious workup. CXR remarkable only for small bilateral pleural effusions. Lasix x1 for hypertension and mild hypoxemia. 05/20 - Intraop findings: 1-Graft ureter completely stuck in pelvis, dissected up until the renal pelvis. Boari flap performed and anastomosed to proximal graft ureter 2-[place] left ureter divided and dissected then ligated after observing it throughout the procedurewithout urine production 24 hour events: ?? No acute events ?? Continues with hiccups. Denies N/V ?? States having 4x small BM overnight. ?? Afebrile, leukocytosis stabilizing ?? Otherwise feeling ok, denying f/c/cp/sob O: Last value Range last 24hrs Temperature Temp: 36.5 ??C (97.7 ??F) Temp: [36.2 ??C (97.2 ??F)-36.6 ??C (97.9 ??F)] Heart Rate Heart Rate: 58 Heart Rate: [58-65] Blood Pressure BP: 141/65 BP: (141-214)/(65-107) Respiratory Rate Resp: 18 Resp: [18-20] SpO2 SpO2: 92 % SpO2: [89 %-93 %] 05/26 0701 - 05/27 0700 In: 2393.5 [P.O.:480; I.V.:1800.5] Out: 1440 [Urine:1440] Physical Exam: General: NAD, resting comfortably, pleasant, conversant HEENT: PERRL, anicteric sclerae CVS: RRR Pulm: CTAB, comfortable on RA Abd: soft, distended, tympanitic. Midline incision closed with dermabond and c/d/i : LLQ nephrostomy capped. Whaley with light yellow urine. Ext: wwp Neuro: nonfocal,moving all four extremities spontaneously Recent Labs 05/27/16 0543 05/26/16 0430 05/25/16 0447 WBC 13.5* 13.0* 9.9* HGB 13.1* 14.8 14.2 HCT 38.5* 43.2 40.3* PLATELET 246 304 247 Recent Labs 05/27/16 0543 05/26/16 1657 05/26/16 0430 05/25/16 1638 05/25/16 0447 NA 141 -- 143 140 138 K 3.8 4.5 3.7 4.0 3.5 CL 102 -- 100 99 98 CO2 24 -- 23 25 27 BUN 17 -- 20 12 10 CREATININE 1.04 -- 1.32 1.10 0.98 GLUCOSE 148 -- 224* 189 159 CALCIUM 9.0 -- 9.8 9.2 8.7 MAGNESIUM 0.73 -- 0.82 0.74 0.61* PHOS 3.2 -- 3.0 -- 2.5 Studies: 05/27 - UCx: NGTD 05/21 - UCx: negative 05/14 - Cdiff: negative 05/13 - UCx: klebsiella 05/13 - BCx: negative Consults \ Infectious disease (05/23): Recommendations: - stop vancomycin, which he received for three days post??surgery - cephalexin (or cefazolin if you are worried about oral absorption) for 5 days post surgery - stop ganciclovir in 1 week, as he has received more than 6 months after transplant - follow up in ID clinic with me on 06/25 to discuss treatment of chronic HCV ?? --- ASSESSMENT: Cody Bolden is a 65 y.o. male on alf IV abx for coag neg staph bacteremia from a nephrostomy tube initially placed for ureteral stricture who presents with dehydration, fatigue, now improved. Initial urine cx with klebsiella, treated with ancef and vancomycin. Now transitioned to keflex PO only. Patient ambulating without issue, pain controlled, UOP adequate, but hiccups, increased distension, and tympany on exam. Small BM with some flatus. Labs notable for leukocytosis,cultures pending. PLAN: UTI, previous staph bacteremia. - Vancomycin course complete - Keflex to complete through Thursday - Follow up urine culture - C.diff negative Leukocytosis: - Infectious workup - BCx x2 - UA & UCx - CXR PA & LA views - small pleural effusions S/p Boari flap from bladder to proximal transplant ureter - Awaiting return of bowel function - Nephrostomy tube to remain capped - Strict I/O's - Follow up pathology - Bowel regimen, dulcolax suppository, lactulose - Hold plavix, give ASA81 - Protonix for gerd Hypertension - BP better controlled today - Hydralazine prn - Metoprolol 25->50 Diet/Fluids/Electrolytes/Volume status: - Regular diet - Replete lytes prn Immunosuppression - Prograf 1/0.5 - Cellcept 250mg bid - Valcyte 450mg bid Dispo: Floor, full code Francois Bowie MD Transplant Surgery [phone] Associated attestation - Que Amaro MD - 05/27/2016 4:00 PM EST I have seen the patient and reviewed the resident's above history and I agree with the details as written. The assessment and plan were formulated in discussion with me and I agree with them as documented. Graft function remains normal, bowel function returned with five bowel movements in the last 24 hours. Abdomen mildly distended with no evidence of peritonitis. Advancing to solids again and will determine how he tolerates this today as well as whether he is able to maintain his I/O balance with PO's. Holding IVF today. Incision site c/d/i, nephrostomy capped, whaley remains in and urine is clear.Afebrile and no rigors. Remains on oral Keflex. He completes his abx course tomorrow. I reviewed and adjusted his immunosuppression as follows: Prograf 1/0.5, trough level 5.3. No adjustment necessary today Cellcept 250 mg po bid His graft ureter did not demonstrate histologic evidence of BK virus infection. D/W Pavanayo Mccraryus yesterday. Anticipate discharge home tomorrow if he tolerates PO's. ID and Urology followup scheduled and we will coordinate our clinic visit around these visits. Whaley and nephrostomy tubes remain in through Urology visit. * Shin Elam - 05/27/2016 7:32 AM EST INPATIENT DAILY PROGRESS NOTE Patient Name: Cody Bolden Patient Age: 65 y.o. Birthdate: 1950 Admit date: 05/13/2016 Attending Physician: Que Amaro,* Summary of Assessment/Plan: Patient doing well POD7. Neph tube to remain capped at this time, anticipating d/c with neph tube in place. Margret drain removed ID: Cody Bolden is a 65 y.o. 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 Most recently with coag neg staph bacteremia and on daily daptomycin infusions, UTI during current admission with klebsiella cx. He is now s/p reimplantation of this transplant (left side) 24hr events/S: Passed small BMs last night Tolerating regular diet, hiccups resolved Ambulating well independently O: Last value Range last 24hrs Temperature Temp: 36.5 ??C (97.7 ??F) Temp: [36.2 ??C (97.2 ??F)-36.6 ??C (97.9 ??F)] Heart Rate Heart Rate: 64 Heart Rate: [60-67] Blood Pressure BP: 166/83 BP: (151-194)/(70-103) Respiratory Rate Resp: 18 Resp: [18-20] SpO2 SpO2: 90 % SpO2: [89 %-95 %] 05/26 0701 - 05/27 0700 In: 2393.5 [P.O.:480; I.V.:1800.5] Out: 1440 [Urine:1440] Sips and Chips (Give Meds) Physical Exam: General: NAD, A&Ox3, resting in bed, cooperative HEENT: normocephalic, anicteric sclerae CVS: RRR, no m/r/g Pulm: CTAB, no wheezes or rhonchi Abd: soft, non-tender, non-distended. No guarding. Abdominal midline incision sites c/d/i. Skin: warm, dry Ext: well perfused, no edema. Neuro: Grossly intact, moving all four extremities spontaneously. Lines/Drains: Nephrostomy tube (capped) Whaley Recent Labs 05/27/16 0543 05/26/16 0430 05/25/16 0447 WBC 13.5* 13.0* 9.9* HGB 13.1* 14.8 14.2 HCT 38.5* 43.2 40.3* PLATELET 246 304 247 Recent Labs 05/27/16 0543 05/26/16 1657 05/26/16 0430 05/25/16 1638 05/25/16 0447 NA 141 -- 143 140 138 K 3.8 4.5 3.7 4.0 3.5 CL 102 -- 100 99 98 CO2 24 -- 23 25 27 BUN 17 -- 20 12 10 CREATININE 1.04 -- 1.32 1.10 0.98 GLUCOSE 148 -- 224* 189 159 CALCIUM 9.0 -- 9.8 9.2 8.7 MAGNESIUM 0.73 -- 0.82 0.74 0.61* PHOS 3.2 -- 3.0 -- 2.5 Imaging: AM CXR 05/21: FINDINGS: A percutaneous stent projects over the left iliac wing with tip projecting over the superior left sacroiliac joint, likely region of the transplant kidney pelvis. A second stent extends from the same region with distal end projecting over the expected region of the bladder. A surgical drain is in place with tip also projecting over the left sacrum. There is a normal bowel gas pattern. Visualized lung bases are clear. Epidural catheter is partially visualized. ASSESSMENT: Cody Bolden is a 65 y.o. male s/p Boari flap from bladder to proximal transplant ureter on moth exterminator antibiotics for coag negative staph bacteremia. Keep PCN in place and capped at this time. Will need fluoro cystogram prior to whaley catheter removal. PLAN: - Appreciate ID recs for appropriate antibiotic regimen given. - Neph tube to remain capped and in place - Further care per transplant - Urology will continue to follow - Margret drain removed DISPO: Stable on floor. Code status: FULL * Francois Bowie MD - 05/26/2016 9:45 AM EST General Surgery Resident Inpatient Progress Note ID: Cody Bodlen is a 65 y.o. male with Hx of renal transplant on 09/18 complicated by ureteralstenosis, staph bacteremia. Admitted for dehydration, UTI, now resolved and s/p Boari flap. Hospital course: POD 0 - s/p Boari flap from bladder to proximal transplant ureter POD 1 - Tolerating clears, good UOP. Nephrostomy tube capped. POD 2 - No increase in LEEANNA output after capped nephrostomy tube. No return of bowel function yet POD 3 - No return of bowel function POD 4 - Advanced to regular diet, tolerating PO. IV to PO meds transitioned. No ROBF. POD 5 - hypertensive to 180s requiring hydralazine. Hiccups, heartburn. Small amount of flatus/stool but not convincing ROBF. LEEANNA drain removed by urology 05/20 - Intraop findings: 1-Graft ureter completely stuck in pelvis, dissected up until the renal pelvis. Boari flap performed and anastomosed to proximal graft ureter 2-[place] left ureter divided and dissected then ligated after observing it throughout the procedurewithout urine production 24 hour events: ?? No acute events ?? Continues with hiccups. Denies N/V. Had small amount of gas with small stool last night after suppository ?? Otherwise feeling ok, denying f/c/cp/sob O: Last value Range last 24hrs Temperature Temp: 36.4 ??C (97.5 ??F) Temp: [36.3 ??C (97.3 ??F)-36.6 ??C (97.9 ??F)] Heart Rate Heart Rate: 60 Heart Rate: [60] Blood Pressure BP: 161/79 BP: (145-169)/(69-84) Respiratory Rate Resp: 18 Resp: [16-18] SpO2 SpO2: 95 % SpO2: [89 %-95 %] 05/25 0701 - 05/26 0700 In: 2570.9 [P.O.:1440; I.V.:1130.9] Out: 2650 [Urine:2650] Physical Exam: General: NAD, resting comfortably, pleasant, conversant HEENT: PERRL, anicteric sclerae CVS: RRR Pulm: CTAB, comfortable on RA Abd: soft, distended, tympanitic. Midline incision closed with dermabond and c/d/i : LLQ nephrostomy capped. Whaley with light yellow urine. Ext: wwp Neuro: nonfocal,moving all four extremities spontaneously Recent Labs 05/26/16 0430 05/25/16 0447 05/24/16 0445 WBC 13.0* 9.9* 8.4 HGB 14.8 14.2 12.7* HCT 43.2 40.3* 36.6* PLATELET 304 247 211 Recent Labs 05/26/16 0430 05/25/16 1638 05/25/16 0447 05/24/16 0445 NA 143 140 138 139 K 3.7 4.0 3.5 3.6 CL 100 99 98 101 CO2 23 25 27 25 BUN 20 12 10 10 CREATININE 1.32 1.10 0.98 1.04 GLUCOSE 224* 189 159 128 CALCIUM 9.8 9.2 8.7 8.5 MAGNESIUM 0.82 0.74 0.61* 0.59* PHOS 3.0 -- 2.5 2.6 Studies: 05/21 - UCx: NGTD 05/14 - Cdiff: negative 05/13 - UCx: klebsiella 05/13 - BCx: negative Consults \ Infectious disease (05/23): Recommendations: - stop vancomycin, which he received for three days post??surgery - cephalexin (or cefazolin if you are worried about oral absorption) for 5 days post surgery - stop ganciclovir in 1 week, as he has received more than 6 months after transplant - follow up in ID clinic with me on 06/25 to discuss treatment of chronic HCV ?? --- ASSESSMENT: Cody Bolden is a 65 y.o. male on moth exterminator IV abx for coag neg staph bacteremia from a nephrostomy tube initially placed for ureteral stricture who presents with dehydration, fatigue, now improved. Initial urine cx with klebsiella, treated with ancef and vancomycin. Now transitioned to keflex PO only. Patient ambulating without issue, pain controlled, UOP adequate, but hiccups, increased distension, and tympany on exam. Reportedly small amount of flatus with small BM, but no convincing ROBF as of yet. KUB showing akinetic bowel. Labs notable for leukocytosis. PLAN: UTI, previous staph bacteremia. - Vancomycin course complete - Keflex to complete through Thursday - Follow up urine culture - C.diff negative Leukocytosis: - Infectious workup - BCx x2 - UA & UCx - CXR PA & LA views S/p Boari flap from bladder to proximal transplant ureter - Awaiting return of bowel function - Nephrostomy tube to remain capped - Strict I/O's - Follow up pathology - Bowel regimen, dulcolax suppository, lactulose - Hold plavix, give ASA81 - Protonix for gerd Hypertension - BP better controlled today - Hydralazine prn Diet/Fluids/Electrolytes/Volume status: - Sips and chips - NS@75 - Replete lytes prn Immunosuppression - Prograf 1/0.5 - Cellcept 250mg bid - Valcyte 450mg bid Dispo: Floor, full code Francois Bowie MD Transplant Surgery [phone] Associated attestation - Que Amaro MD - 05/26/2016 12:08 PM EST I have seen the patient and reviewed the resident's above history and I agree with the details as written. The assessment and plan were formulated in discussion with me and I agree with them as documented. Mr. Bolden continues to have an ileus following the laparotomy procedure last week. Over the weekend his abdominal distension increased and though he has had no nausea or emesis, he developed hiccups yesterday. Plain film of the abdomen does not suggest small bowel dilation. He has gas throughoutthe colon which is moderately distended. He passed flatus once yesterday with no bowel activity since that time. His graft function is stable with a creatinine level of 1.3 this am. He was hypertensive and mildlyhypoxemic yesterday so we gave him a dose of Lasix 40 mg IV x 1. O2 sats are ranging between 91 - 95% on RA today. No cough, no dyspnea. Abdomen is soft, moderately distended and benign. No evidence of peritonitis. Incision site healingwithout erythema or drainage. The LEEANNA drain was removed by the Urology team over the weekend. The nephrostomy tube remains clamped and he is draining via Whaley catheter at this stage. We will plan to leave this in for approximately [address] Arredondo intends to perform cystoscopy before the nephrostomy and Whaley are removed. He remains on Keflex coverage for the Klebsiella infection in the graft that led to this admission prior to the surgery. He will complete his 14 day course of therapy on Thursday of this week. I reviewed and adjusted his immunosuppression as follows: Prograf 1/0.5, trough level again today Cellcept 250 mg po bid Stable, floor status. * Shin Elam - 05/26/2016 7:14 AM EST INPATIENT DAILY PROGRESS NOTE Patient Name: Cody Bolden Patient Age: 65 y.o. Birthdate: 1950 Admit date: 05/13/2016 Attending Physician: Que Amaro,* Summary of Assessment/Plan: Patient doing well POD6. Neph tube to remain capped at this time, anticipating d/c with neph tube in place. Margret drain removed ID: Cody Bolden is a 65 y.o. 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 Most recently with coag neg staph bacteremia and on daily daptomycin infusions, UTI during current admission with klebsiella cx. He is now s/p reimplantation of this transplant (left side) 24hr events/S: Passed small BM overnight Tolerating regular diet Ambulating well independently O: Last value Range last 24hrs Temperature Temp: 36.5 ??C (97.7 ??F) Temp: [36.3 ??C (97.3 ??F)-36.6 ??C (97.9 ??F)] Heart Rate Heart Rate: 62 Heart Rate: -- Blood Pressure BP: 152/73 BP: (145-181)/(69-84) Respiratory Rate Resp: 16 Resp: [16-18] SpO2 SpO2: 91 % SpO2: [89 %-91 %] 05/25 0701 - 05/26 0700 In: 2570.9 [P.O.:1440; I.V.:1130.9] Out: 2650 [Urine:2650] Regular diet Physical Exam: General: NAD, A&Ox3, resting in bed, cooperative HEENT: normocephalic, anicteric sclerae CVS: RRR, no m/r/g Pulm: CTAB, no wheezes or rhonchi Abd: soft, non-tender, non-distended. No guarding. Abdominal midline incision sites c/d/i. LEEANNA drainwith scant S/S output, removed Skin: warm, dry Ext: well perfused, no edema. Neuro: Grossly intact, moving all four extremities spontaneously. Lines/Drains: Nephrostomy tube (capped) Whaley Recent Labs 05/26/16 0430 05/25/16 0447 05/24/16 0445 WBC 13.0* 9.9* 8.4 HGB 14.8 14.2 12.7* HCT 43.2 40.3* 36.6* PLATELET 304 247 211 Recent Labs 05/26/16 0430 05/25/16 1638 05/25/16 0447 05/24/16 0445 NA 143 140 138 139 K 3.7 4.0 3.5 3.6 CL 100 99 98 101 CO2 23 25 27 25 BUN 20 12 10 10 CREATININE 1.32 1.10 0.98 1.04 GLUCOSE 224* 189 159 128 CALCIUM 9.8 9.2 8.7 8.5 MAGNESIUM 0.82 0.74 0.61* 0.59* PHOS 3.0 -- 2.5 2.6 Imaging: AM CXR 05/21: FINDINGS: A percutaneous stent projects over the left iliac wing with tip projecting over the superior left sacroiliac joint, likely region of the transplant kidney pelvis. A second stent extends from the same region with distal end projecting over the expected region of the bladder. A surgical drain is in place with tip also projecting over the left sacrum. There is a normal bowel gas pattern. Visualized lung bases are clear. Epidural catheter is partially visualized. ASSESSMENT: Cody Bolden is a 65 y.o. male s/p Boari flap from bladder to proximal transplant ureter on moth exterminator antibiotics for coag negative staph bacteremia. Keep PCN in place and capped at this time. Will nee fluoro cystogram prior to whaley catheter removal. PLAN: - Appreciate ID recs for appropriate antibiotic regimen given. - Neph tube to remain capped and in place - Further care per transplant - Urology will continue to follow - Margret drain removed DISPO: Stable on floor. Code status: FULL * Francois Bowie MD - 05/25/2016 8:42 AM EST General Surgery Resident Inpatient Progress Note ID: Cody Bolden is a 65 y.o. 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 Hospital course: POD 0 - s/p Boari flap from bladder to proximal transplant ureter POD 1 - Tolerating clears, good UOP. Nephrostomy tube capped. POD 2 - No increase in LEEANNA output after capped nephrostomy tube. No return of bowel function yet POD 3 - No return of bowel function POD 4 - Advanced to regular diet, tolerating PO. IV to PO meds transitioned. No ROBF. 05/20 - Intraop findings: 1-Graft ureter completely stuck in pelvis, dissected up until the renal pelvis. Boari flap performed and anastomosed to proximal graft ureter 2-[place] left ureter divided and dissected then ligated after observing it throughout the procedurewithout urine production 24 hour events: ?? No acute events ?? Hypertensive to 180s requiring hydralazine x1 ?? Hiccups, heartburn. Denies N/V. Had small amount of gas with small stool last night. ?? Otherwise feeling ok, denying f/c/cp/sob ?? Urology to remove LEEANNA drain this AM O: Last value Range last 24hrs Temperature Temp: 36.4 ??C (97.5 ??F) Temp: [36.2 ??C (97.2 ??F)-36.5 ??C (97.7 ??F)] Heart Rate Heart Rate: 62 Heart Rate: -- Blood Pressure BP: 177/79 BP: (160-184)/(74-83) Respiratory Rate Resp: 18 Resp: [16-18] SpO2 SpO2: 92 % SpO2: [88 %-94 %] 05/24 0701 - 05/25 0700 In: 4225.5 [P.O.:1989; I.V.:2235.5] Out: 3140 [Urine:3025] Physical Exam: General: NAD, resting comfortably, pleasant, conversant HEENT: PERRL, anicteric sclerae CVS: RRR Pulm: comfortable on RA Abd: soft, distended, tympanitic. Midline incision closed with dermabond and c/d/i. Interval removal of LEEANNA drain : LLQ nephrostomy capped. Whaley with light yellow urine. Ext: wwp Neuro: nonfocal,moving all four extremities spontaneously Recent Labs 05/25/16 0447 05/24/16 0445 05/23/16 0543 WBC 9.9* 8.4 10.0* HGB 14.2 12.7* 13.9 HCT 40.3* 36.6* 40.7 PLATELET 247 211 211 Recent Labs 05/25/16 0447 05/24/16 0445 05/23/16 0537 NA 138 139 140 K 3.5 3.6 3.7 CL 98 101 101 CO2 27 25 25 BUN 10 10 14 CREATININE 0.98 1.04 1.24 GLUCOSE 159 128 136 CALCIUM 8.7 8.5 8.9 MAGNESIUM 0.61* 0.59* 0.55* PHOS 2.5 2.6 2.2* Studies: 05/21:UCx - NGTD 05/14 - Cdiff - negative 05/13 - UCx: klebsiella 05/13 - BCx - negative Consults \ Infectious disease (05/23): Recommendations: - stop vancomycin, which he received for three days post??surgery - cephalexin (or cefazolin if you are worried about oral absorption) for 5 days post surgery - stop ganciclovir in 1 week, as he has received more than 6 months after transplant - follow up in ID clinic with me on 06/25 to discuss treatment of chronic HCV ?? --- ASSESSMENT: Cody Bolden is a 65 y.o. male on alf IV abx for coag neg staph bacteremia from a nephrostomy tube initially placed for ureteral stricture who presents with dehydration, fatigue, now improved. Initial urine cx with klebsiella, treated with ancef and vancomycin. Now transitioned to keflex PO only. Patient ambulating without issue, pain controlled, UOP adequate, but hiccups, increased distension, and tympany on exam. Reportedly small amount of flatus with small BM. Will obtain KUB this AM. PLAN: UTI, previous staph bacteremia - Vancomycin course complete - Keflex for 5 days - Follow up urine culture - C.diff negative S/p Boari flap from bladder to proximal transplant ureter - Awaiting return of bowel function - Bowel regimen, dulcolax suppository prn - KUB this AM - Nephrostomy tube to remain capped - Hold plavix, give ASA81 - Protonix for gerd - Strict I/O's - Follow up pathology Hypertension - BP trending upwards, SBP 180s this AM - Hydralazine prn Diet/Fluids/Electrolytes/Volume status: - IV Lasix 40 - d/c maintenance fluid - Regular diet, nutritional shakes - Replete lytes prn Immunosuppression - Prograf 1/0.5 - Cellcept 250mg bid - Valcyte 450mg bid Dispo: Floor, full code Francois Bowie MD Transplant Surgery [phone] Associated attestation - Que Amaro MD - 05/26/2016 7:45 AM EST I have seen the patient and reviewed the resident's above history and I agree with the details as written. The assessment and plan were formulated in discussion with me and I agree with them as documented. * Pako Booth - 05/25/2016 7:16 AM EST INPATIENT DAILY PROGRESS NOTE Patient Name: Cody Bolden Patient Age: 65 y.o. Birthdate: 1950 Admit date: 05/13/2016 Attending Physician: Que Amaro,* Summary of Assessment/Plan: Patient doing well POD5. Neph tube to remain capped at this time, anticipating d/c with neph tube in place. Margret drain removed ID: Cody Bolden is a 65 y.o. 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 Most recently with coag neg staph bacteremia and on daily daptomycin infusions, UTI during current admission with klebsiella cx. He is now s/p reimplantation of this transplant (left side) 24hr events/S: No acute events overnight. This morning pain is well controlled, minimal. Toleratinglow res diet, had dinner yesterday, no N/V. Having hiccups this morning, no BM yet, walking severallaps seemingly all day long. Voiding into whaley, capped neph tube in place, urine continues to be clear/yellow. No CP/SOB. Trace S/S fluid in LEEANNA drain. O: Last value Range last 24hrs Temperature Temp: 36.4 ??C (97.5 ??F) Temp: [36.2 ??C (97.2 ??F)-36.5 ??C (97.7 ??F)] Heart Rate Heart Rate: 62 Heart Rate: -- Blood Pressure BP: 177/79 BP: (156-184)/(72-83) Respiratory Rate Resp: 18 Resp: [16-18] SpO2 SpO2: 92 % SpO2: [88 %-94 %] 05/24 0701 - 05/25 0700 In: 4225.5 [P.O.:1989; I.V.:2235.5] Out: 3140 [Urine:3025] Regular diet Drain 115 (110 prior) 85 overnight Physical Exam: General: NAD, A&Ox3, resting in bed, cooperative HEENT: normocephalic, anicteric sclerae CVS: RRR, no m/r/g Pulm: CTAB, no wheezes or rhonchi Abd: soft, non-tender, non-distended. No guarding. Abdominal midline incision sites c/d/i. LEEANNA drainwith scant S/S output, removed Skin: warm, dry Ext: well perfused, no edema. Neuro: Grossly intact, moving all four extremities spontaneously. Lines/Drains: Nephrostomy tube Drain Whaley Recent Labs 05/25/16 0447 05/24/16 0445 05/23/16 0543 05/22/16 0729 WBC 9.9* 8.4 10.0* 10.5* HGB 14.2 12.7* 13.9 12.8* HCT 40.3* 36.6* 40.7 36.7* PLATELET 247 211 211 210 Recent Labs 05/25/16 0447 05/24/16 0445 05/23/16 0537 05/22/16 0729 NA 138 139 140 137 K 3.5 3.6 3.7 4.0 CL 98 101 101 101 CO2 27 25 25 22 BUN 10 10 14 19 CREATININE 0.98 1.04 1.24 1.37 GLUCOSE 159 128 136 159 CALCIUM 8.7 8.5 8.9 8.9 MAGNESIUM 0.61* 0.59* 0.55* 0.65* PHOS 2.5 2.6 2.2* 2.6 Other Labs: Mag 0.61 Phos 2.5 Imaging: AM CXR 05/21: FINDINGS: A percutaneous stent projects over the left iliac wing with tip projecting over the superior left sacroiliac joint, likely region of the transplant kidney pelvis. A second stent extends from the same region with distal end projecting over the expected region of the bladder. A surgical drain is in place with tip also projecting over the left sacrum. There is a normal bowel gas pattern. Visualized lung bases are clear. Epidural catheter is partially visualized. ASSESSMENT: Cody Bolden is a 65 y.o. male s/p Boari flap from bladder to proximal transplant ureter on moth exterminator antibiotics for coag negative staph bacteremia. PLAN: - Appreciate ID recs for appropriate antibiotic regimen given. - Neph tube to remain capped and in place - Further care per transplant - Urology will continue to follow -Margret drain removed DISPO: Stable on floor. Code status: FULL * Francois Bowie MD - 05/24/2016 7:37 AM EST General Surgery Resident Inpatient Progress Note ID: Cody Bolden is a 65 y.o. 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 Hospital course: POD 0 - s/p Boari flap from bladder to proximal transplant ureter POD 1 - Tolerating clears, good UOP. Nephrostomy tube capped. POD 2 - No increase in LEEANNA output after capped nephrostomy tube. No return of bowel function yet POD 3 - No return of bowel function 05/20 - Intraop findings: 1-Graft ureter completely stuck in pelvis, dissected up until the renal pelvis. Boari flap performed and anastomosed to proximal graft ureter 2-[place] left ureter divided and dissected then ligated after observing it throughout the procedurewithout urine production 24 hour events: ?? No acute events ?? Advanced to regular diet; self-restricted. Tolerating PO, no N/V. No bowel movements or flatus this AM ?? Good UOP. Denies f/c/n/v ?? Ambulating without issue ?? IV to PO med transitioned ?? Awaiting return of bowel function. O: Last value Range last 24hrs Temperature Temp: 36.4 ??C (97.5 ??F) Temp: [36.3 ??C (97.3 ??F)-36.6 ??C (97.9 ??F)] Heart Rate Heart Rate: 62 Heart Rate: -- Blood Pressure BP: 170/74 BP: (137-170)/(66-77) Respiratory Rate Resp: 18 Resp: [18] SpO2 SpO2: 90 % SpO2: [90 %-93 %] 05/23 0701 - 05/24 0700 In: 5346 [P.O.:1980; I.V.:3366] Out: 5085 [Urine:5050] Physical Exam: General: NAD, resting comfortably, pleasant, conversant HEENT: PERRL, anicteric sclerae CVS: RRR Pulm: comfortable on RA Abd: soft, moderately distended, tympanitic. Midline incision closed with dermabond and c/d/i. LEEANNA drain with s/s output : LLQ nephrostomy capped. Whaley with light yellow urine. Ext: wwp Neuro: nonfocal,moving all four extremities spontaneously Recent Labs 05/24/16 0445 05/23/16 0543 05/22/16 0729 WBC 8.4 10.0* 10.5* HGB 12.7* 13.9 12.8* HCT 36.6* 40.7 36.7* PLATELET 211 211 210 Recent Labs 05/24/16 0445 05/23/16 0537 05/22/16 0729 NA 139 140 137 K 3.6 3.7 4.0 CL 101 101 101 CO2 25 25 22 BUN 10 14 19 CREATININE 1.04 1.24 1.37 GLUCOSE 128 136 159 CALCIUM 8.5 8.9 8.9 MAGNESIUM 0.59* 0.55* 0.65* PHOS 2.6 2.2* 2.6 Consults \ Infectious disease (05/23): Recommendations: - stop vancomycin, which he received for three days post??surgery - cephalexin (or cefazolin if you are worried about oral absorption) for 5 days post surgery - stop ganciclovir in 1 week, as he has received more than 6 months after transplant - follow up in ID clinic with me on 06/25 to discuss treatment of chronic HCV ?? --- ASSESSMENT: Cody Bolden is a 65 y.o. male on alf IV abx for coag neg staph bacteremia from a nephrostomy tube initially placed for ureteral stricture who presents with dehydration, fatigue, now improved. Initial urine cx with klebsiella, treated with ancef and vancomycin. Patient ambulating without issue, pain controlled, UOP adequate. Continuing to await return of bowel function. PLAN: Dehydration, resolved - Continue NS@100 - Replete lytes prn - Advanced to low fiber diet UTI, previous staph bacteremia - Vancomycin course complete - Stop ancef and start keflex for 5 days - follow up urine culture - C.diff negative S/p Boari flap from bladder to proximal transplant ureter - Awaiting return of bowel function - Nephrostomy tube to remain capped; Monitor LEEANNA for signs of urine leak - Strict I/O's - Follow up pathology - Hold plavix, give ASA81 Immunosuppression - Prograf 1/0.5 - Cellcept 250mg bid - Valcyte 450mg bid Dispo: Floor, full code Francois Bowie MD Transplant Surgery [phone] Associated attestation - Que Amaro MD - 05/24/2016 12:26 PM EST I have seen the patient and reviewed the resident's above history and I agree with the details as written. The assessment and plan were formulated in discussion with me and I agree with them as documented. * Pako Booth - 05/24/2016 5:16 AM EST INPATIENT DAILY PROGRESS NOTE Patient Name: Cody Bolden Patient Age: 65 y.o. Birthdate: 1950 Admit date: 05/13/2016 Attending Physician: Que Amaro,* Summary of Assessment/Plan: Patient doing well POD4. Neph tube to remain capped at this time, anticipating weekend d/c with neph tube in place. ID: Cody Bolden is a 65 y.o. 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 Most recently with coag neg staph bacteremia and on daily daptomycin infusions, UTI during current admission with klebsiella cx. He is now s/p reimplantation of this transplant (left side) 24hr events/S: No acute events overnight. This morning pain is well controlled at about 3/10. Tolerating low res diet, had some chicken and mashed potatoes without any n/v. No BM yet, thinks flatus though. Voiding into whaley, capped neph tube in place, urine continues to be clear/yellow. No CP/SOB.Trace S/S fluid in drain O: Last value Range last 24hrs Temperature Temp: 36.4 ??C (97.5 ??F) Temp: [36.3 ??C (97.3 ??F)-36.6 ??C (97.9 ??F)] Heart Rate Heart Rate: 62 Heart Rate: -- Blood Pressure BP: 170/74 BP: (137-170)/(66-77) Respiratory Rate Resp: 18 Resp: [18] SpO2 SpO2: 90 % SpO2: [90 %-93 %] 05/23 0701 - 05/24 0700 In: 5346 [P.O.:1980; I.V.:3366] Out: 5085 [Urine:5050] Fiber/Residue Restricted diet Drain 100 Physical Exam: General: NAD, A&Ox3, resting in bed, cooperative HEENT: normocephalic, anicteric sclerae CVS: RRR, no m/r/g Pulm: CTAB, no wheezes or rhonchi Abd: soft, non-tender, non-distended. No guarding. Abdominal midline incision sites c/d/i. LEEANNA drainwith scant S/S output Skin: warm, dry Ext: well perfused, no edema. Neuro: Grossly intact, moving all four extremities spontaneously. Lines/Drains: Nephrostomy tube Drain Whaley Recent Labs 05/23/16 0543 05/22/16 0729 05/21/16 0553 WBC 10.0* 10.5* 11.3* HGB 13.9 12.8* 13.5* HCT 40.7 36.7* 37.8* PLATELET 211 210 222 Recent Labs 05/23/16 0537 05/22/16 0729 05/21/16 0553 NA 140 137 136 K 3.7 4.0 4.5 CL 101 101 101 CO2 25 22 18* BUN 14 19 17 CREATININE 1.24 1.37 1.27 GLUCOSE 136 159 269* CALCIUM 8.9 8.9 8.4* MAGNESIUM 0.55* 0.65* 0.51* PHOS 2.2* 2.6 2.4* Other Labs: Tacrolimus level 5.4 Imaging: AM CXR 05/21: FINDINGS: A percutaneous stent projects over the left iliac wing with tip projecting over the superior left sacroiliac joint, likely region of the transplant kidney pelvis. A second stent extends from the same region with distal end projecting over the expected region of the bladder. A surgical drain is in place with tip also projecting over the left sacrum. There is a normal bowel gas pattern. Visualized lung bases are clear. Epidural catheter is partially visualized. ASSESSMENT: Cody Bolden is a 65 y.o. male s/p Boari flap from bladder to proximal transplant ureter on moth exterminator antibiotics for coag negative staph bacteremia. PLAN: - Appreciate ID recs for appropriate antibiotic regimen given. - Neph tube to remain capped and in place - Further care per transplant - Urology will continue to follow DISPO: Stable on floor. Code status: FULL * Aubrey Horvath MD - 05/23/2016 5:43 PM EST INFECTIOUS DISEASE FOLLOW-UP NOTE Active ID Issue(s): UTI - GNR Antimicrobial Therapy: Vancomycin Cefazolin Intercurrent Events/Subjective Data: Feels well. No pain. Thinks that he's healing well. Physical Exam: Last value Range last 24 hrs Temperature Temp: 36.3 ??C (97.3 ??F) Temp: [36.3 ??C (97.3 ??F)-36.6 ??C (97.9 ??F)] General Looks well, animated, sitting in chair HEENT No jaundice Heart Regular Lungs Clear Abdomen Soft, not tender, nephrostomy with clear urine, abdominal drain with sanguinous fluid Extremities No edema Skin No rash Neuro Grossly intact Laboratory: Lab Results Component Value Date WBC 10.0 (H) 05/23/2016 HGB 13.9 05/23/2016 HCT 40.7 05/23/2016 PLATELET 211 05/23/2016 Lab Results Component Value Date CREATININE 1.24 05/23/2016 Lab Results Component Value Date ALT 17 05/13/2016 AST 18 05/13/2016 ALKPHOS 63 05/13/2016 BILITOT 2.4 (H) 05/13/2016 Microbiology: Urine Cultures: Klebsiella pneumoniae ? MICROSCAN METHOD ? Amikacin Sensitive ? Ampicillin Resistant ? Ampicillin + Sulbactam Sensitive ? Aztreonam Sensitive ? Cefazolin Sensitive ? Cefepime Sensitive ? Ceftazidime Sensitive ? Ceftriaxone Sensitive ? Cefuroxime Sensitive ? Ciprofloxacin Sensitive ? Gentamicin Sensitive ? Levofloxacin Sensitive ? Meropenem Sensitive ? Nitrofurantoin Sensitive ? Piperacillin/Tazobactam Sensitive ? Tetracycline Sensitive ? Tobramycin Sensitive ? Trimethoprim/Sulfa Sensitive Procedures: Form Op note 05/20 Complex/hard/aida dissection of bladder/ureter from graft Graft ureter completely stuck in pelvis, dissected up into the renal pelvis. Flexible intraop ureteroscopy to confirm location Boari flap performed and anastomosed to proximal graft ureter. Tension free. Short JJ stent placed [place] left ureter divided and dissected then ligated after observing it throughout the procedure without urine production Assessment: Cody Bolden is a 65 y.o. male with a history HCV, DM, HTN and renal failure due to hypertensive nephropathy, who received a donor kidney transplantation in 09/2015, which has been complicated by a ureteral stricture, requiring a permanent percutaneous nephrostomy despite multiple dilatations. ?? He was admitted with a UTI due to a sensitive Klebsiella, which has been treated with cefazolin. Three days ago, underwent planned ureteral reconstruction. He is recovering well. Planned to be discharged with percutaneous nephrostomy. Recommendations: - stop vancomycin, which he received for three days post??surgery - cephalexin (or cefazolin if you are worried about oral absorption) for 5 days post surgery - stop ganciclovir in 1 week, as he has received more than 6 months after transplant - follow up in ID clinic with me on 06/25 to discuss treatment of chronic HCV This patient was seen and discussed with ID attending Dr. Horvath. Recommendations discussed with primary treating team. We are signing off. Please contact us for any other questions. ?? Franko Kim MD Infectious Disease Fellow Pager [phone] Attending Addendum: I have seen and examined the patient, reviewed the data and agree with the note by Dr. Tipton. * Cody Orr - 05/23/2016 2:32 PM EST Khloe Encounter Note Patient Name: Cody Bolden : [id number] MR#: [id number] Admit Date: 05/13/2016 4:29 PM Hospital Day 10 days Narrative: Pt was not available and I will visit an other time. Assessment: Intervention and Outcome: Follow-up: Time in Direct Care: Cody Hoskinsmy 05/23/2016 * Memo Alva MD - 05/23/2016 1:28 PM EST Acute Pain Service - Epidural Daily Management Physician: Nida Time of Service: 10:10 AM VITAL SIGNS: BP 148/70 (BP Location (NBP): Right arm) Pulse 62 Temp 36.6 ??C (97.9 ??F) (Oral) Resp 18 Ht 177.8 cm (5' 10) Wt 93.6 kg (206 lb 5.6 oz) SpO2 91% BMI 29.61 kg/m2 Epidural day: 4 days s/p placement POD: 3 days s/p Operative Procedures: Procedure(s) with comments: @URETERONEOCYSTOSTOMY ANASTOMOSIS OF SINGLE URETER TO BLADDER - pre op bowel prep Maria Elena and Sondra working together @URETERONEOCYSTOSTOMY ANASTOMOSIS OF SINGLE URETER TO BLADDER Pertinent Medications: Continuous Infusions Bupivacaine 1/16 % (0.625 mg/mL) plus Fentanyl (2 micrograms/mL) infusing at 6 mls/hour plus PCEA at 3 ml every 20 minutes (received boluses of attempts) Tylenol 1000 mg po q 6 hours ?? Oxycodone 5-15 mg po q 4 hours PRN overnight Dilaudid 0.2 mg IV q 2 hours PRN (none) Heparin 5000 U Q 12 Hr Assessment: Numerical Rating Scale (NRS) 2/10 Pain now is well controlled ROS: GI/Bowels Regular diet Nausea No Pruritis No Drowsiness No Patient is awake and alert. Deep breathing and coughing well. Moves legs without difficulty. Plan: Epidural turned off earlier this morning and oral oxycodone given. Pt remains comfortable. Coagulation status is acceptable. Epidural removed. Tip intact. . Epidural insertion site clean and without drainage, pain or erythema. Please call with any questions or concerns. In the presence of Dr. Alva, I am taking down these notes. MARS SCHREIBER RN 05/23/2016 Pager # [phone] I performed the above scribed service and agree with the accuracy of the note. Memo Alva MD * Herlinda Bell RD - 05/23/2016 1:24 PM EST This food writer has noted that patient has been NPO/Clears for 5 days; have noted that patient is stillawaiting return of bowel sounds. He received laxative today. For now patient will continue with clear liquids. Estimated body mass index is 29.61 kg/(m^2) as calculated from the following: Height as of this encounter: 177.8 cm (5' 10). Weight as of this encounter: 93.6 kg (206 lb 5.6 oz). Admission weight: 95.3kg Lab Results Component Value Date HGB 13.9 05/23/2016 HCT 40.7 05/23/2016 NA 140 05/23/2016 K 3.7 05/23/2016 BUN 14 05/23/2016 CREATININE 1.24 05/23/2016 GLUCOSE 136 05/23/2016 CALCIUM 8.9 05/23/2016 MAGNESIUM 0.55 (L) 05/23/2016 PHOS 2.2 (L) 05/23/2016 ALBUMIN 4.0 05/13/2016 Cholesterol (in eD-H the component name CHLPL=Cholesterol) Lab Results Component Value Date CHLPL 134 05/13/2016 Assessment/Plan: Patient will continue on clear liquid diet for now. If patient is not able to begin solid foods in the next 36 hours or so recommend alternative nutrition support. Patient is in good spirits; is present. Will need continue with magnesium and phos replacement. Follow up on Thursday if patient continues as inpatient otherwise will follow up with him in outpatient transplant clinic. Remain available for any questions/concerns in the interim. * Francois Bowie MD - 05/23/2016 9:20 AM EST General Surgery Resident Inpatient Progress Note ID: Cody Bolden is a 65 y.o. 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 Hospital course: POD 0 - s/p Boari flap from bladder to proximal transplant ureter POD 1 - Tolerating clears, good UOP. Nephrostomy tube capped. POD 2 - No increase in LEEANNA output after capped nephrostomy tube. No return of bowel function yet 3 Days Post-Op [facility] 10 05/20 - Intraop findings: 1-Graft ureter completely stuck in pelvis, dissected up until the renal pelvis. Boari flap performed and anastomosed to proximal graft ureter 2-[place] left ureter divided and dissected then ligated after observing it throughout the procedurewithout urine production 24 hour events: ?? No acute events ?? Nephrostomy tube capped yesterday; no increase in LEEANNA drain output. ?? Tolerating clears, good UOP. Denies f/c/n/v ?? Ambulating without issue ?? Awaiting return of bowel function. O: Last value Range last 24hrs Temperature Temp: 36.3 ??C (97.3 ??F) Temp: [36.3 ??C (97.3 ??F)-36.6 ??C (97.9 ??F)] Heart Rate Heart Rate: 62 Heart Rate: -- Blood Pressure BP: 137/66 BP: (137-154)/(62-75) Respiratory Rate Resp: 18 Resp: [18-20] SpO2 SpO2: 93 % SpO2: [90 %-94 %] 05/22 0701 - 05/23 0700 In: 3665 [P.O.:480; I.V.:2935] Out: 3310 [Urine:3275] Physical Exam: General: NAD, resting comfortably, pleasant, conversant HEENT: PERRL, anicteric sclerae CVS: RRR Pulm: comfortable on RA Abd: soft, moderately distended, tympanitic. Midline incision closed with dermabond and c/d/i. LEEANNA drain with s/s output : LLQ nephrostomy capped. Whaley with light yellow urine. Ext: wwp Neuro: nonfocal,moving all four extremities spontaneously Recent Labs 05/23/16 0543 05/22/16 0729 05/21/16 0553 05/20/16 2215 WBC 10.0* 10.5* 11.3* 10.2* HGB 13.9 12.8* 13.5* 13.9 HCT 40.7 36.7* 37.8* 40.6 PLATELET 211 210 222 214 Recent Labs 05/23/16 0537 05/22/16 0729 05/21/16 0553 05/20/16 2215 NA 140 137 136 138 K 3.7 4.0 4.5 4.3 CL 101 101 101 104 CO2 25 22 18* 20* BUN 14 19 17 16 CREATININE 1.24 1.37 1.27 1.21 GLUCOSE 136 159 269* -- CALCIUM 8.9 8.9 8.4* 8.4* MAGNESIUM 0.55* 0.65* 0.51* 0.51* PHOS 2.2* 2.6 2.4* 3.0 Consults \ Infectious disease: Recommendations: ?? -Switch to keflex for 5 more days -Would keep on the vanco for a couple of days, depending on plans for the perc neph tube. ?? -Will treat HCV as an outpt, see above. ?? -OK to stop valcyte in the next few weeks, see above. --- ASSESSMENT: Cody Bolden is a 65 y.o. male on alf IV abx for coag neg staph bacteremia from a nephrostomy tube initially placed for ureteral stricture who presents with dehydration, fatigue, now improved. Initial urine cx with klebsiella, treated with ancef and vancomycin. No flatus or BM; will slowly advance diet today and observe if patient is able to tolerate solid PO intake. PLAN: Dehydration, resolved - Continue NS@100 - Replete lytes prn - Advanced to low fiber diet UTI, previous staph bacteremia - Vancomycin course complete - Continue ancef until tolerating PO and then transition to Keflex for 5 day course - follow up urine culture - C.diff negative S/p Boari flap from bladder to proximal transplant ureter - Awaiting return of bowel function - Nephrostomy tube to remain capped; Monitor LEEANNA for signs of urine leak - Strict I/O's - Follow up pathology - Pain controlled with PCEA; concern for indwelling lines and infection risk with immunosuppressed patient. Per APS, will consider removing line this evening or tomorrow AM and give PO pain medications in the interim. - Hold plavix, give [id number] Immunosuppression - Prograf 1/0.5 - Cellcept 250mg bid - Valcyte 450mg bid Dispo: Floor, full code Francois Bowie MD Transplant Surgery [phone] Associated attestation - Que Amaro MD - 05/24/2016 12:25 PM EST I have seen the patient and reviewed the resident's above history and I agree with the details as written. The assessment and plan were formulated in discussion with me and I agree with them as documented. * Jay Vargas MD - 05/23/2016 7:00 AM EST INPATIENT DAILY PROGRESS NOTE Patient Name: Cody Bolden Patient Age: 65 y.o. Birthdate: 1950 Admit date: 05/13/2016 Attending Physician: Que Amaro,* Summary of Assessment/Plan: Patient doing well POD3. Neph tube to remain capped at this time, anticipating weekend d/c with neph tube in place. Will discuss potential need for nephrostogram and whaley duration this afternoon. ID: Cody Bolden is a 65 y.o. 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 Most recently with coag neg staph bacteremia and on daily daptomycin infusions, UTI during current admission with klebsiella cx. He is now s/p reimplantation of this transplant (left side) 24hr events/S: No acute events overnight. This morning pain is well controlled. Tolerating CLD withfluid restriction, no n/v, no BM or flatus. Voiding into whaley + neph tube in place, urine continues to be clear/yellow. No CP/SOB. O: Last value Range last 24hrs Temperature Temp: 36.3 ??C (97.3 ??F) Temp: [36.3 ??C (97.3 ??F)-36.6 ??C (97.9 ??F)] Heart Rate Heart Rate: 62 Heart Rate: -- Blood Pressure BP: 137/66 BP: (137-154)/(62-75) Respiratory Rate Resp: 18 Resp: [18-20] SpO2 SpO2: 93 % SpO2: [90 %-94 %] 05/22 0701 - 05/23 0700 In: 3665 [P.O.:480; I.V.:2935] Out: 3310 [Urine:3275] Clear Liquid Physical Exam: General: NAD, A&Ox3, resting in bed, cooperative HEENT: normocephalic, anicteric sclerae CVS: RRR, no m/r/g Pulm: CTAB, no wheezes or rhonchi Abd: soft, appropriately tender, non-distended. No guarding. Abdominal incision sites c/d/i. LEEANNA drain with scant S/S output Skin: warm, dry Ext: well perfused, no edema. Neuro: Grossly intact, moving all four extremities spontaneously. Lines/Drains: Nephrostomy tube Drain Whaley Recent Labs 05/23/16 0543 05/22/16 0729 05/21/16 0553 05/20/16 2215 WBC 10.0* 10.5* 11.3* 10.2* HGB 13.9 12.8* 13.5* 13.9 HCT 40.7 36.7* 37.8* 40.6 PLATELET 211 210 222 214 Recent Labs 05/23/16 0537 05/22/16 0729 05/21/16 0553 05/20/16 2215 NA 140 137 136 138 K 3.7 4.0 4.5 4.3 CL 101 101 101 104 CO2 25 22 18* 20* BUN 14 19 17 16 CREATININE 1.24 1.37 1.27 1.21 GLUCOSE 136 159 269* -- CALCIUM 8.9 8.9 8.4* 8.4* MAGNESIUM 0.55* 0.65* 0.51* 0.51* PHOS 2.2* 2.6 2.4* 3.0 Other Labs: Imaging: AM CXR: FINDINGS: A percutaneous stent projects over the left iliac wing with tip projecting over the superior left sacroiliac joint, likely region of the transplant kidney pelvis. A second stent extends from the same region with distal end projecting over the expected region of the bladder. A surgical drain is in place with tip also projecting over the left sacrum. There is a normal bowel gas pattern. Visualized lung bases are clear. Epidural catheter is partially visualized. ASSESSMENT: Cody Bolden is a 65 y.o. male s/p Boari flap from bladder to proximal transplant ureter on moth exterminator antibiotics for coag negative staph bacteremia. PLAN: - Appreciate ID recs for appropriate antibiotic regimen given recent coag neg staph bacteremia and klebsiella UTI. - Neph tube to remain capped - Further care per transplant - Urology will continue to follow DISPO: Stable on floor. Code status: FULL Jay Vargas MD * Maureen Smalls MD - 05/22/2016 10:41 AM EST Acute Pain Service - Epidural Daily Management Physician: Rey Time of Service: 10:41 AM VITAL SIGNS: BP 130/71 (BP Location (NBP): Right arm) Pulse 62 Temp 36.3 ??C (97.3 ??F) (Oral) Resp 16 Ht 177.8 cm (5' 10) Wt 93.8 kg (206 lb 12.7 oz) SpO2 95% BMI 29.67 kg/m2 Epidural day: 3 days s/p placement POD: 2 days s/p Operative Procedures: Procedure(s) with comments: @URETERONEOCYSTOSTOMY ANASTOMOSIS OF SINGLE URETER TO BLADDER - pre op bowel prep Maria Elena and Sondra working together @URETERONEOCYSTOSTOMY ANASTOMOSIS OF SINGLE URETER TO BLADDER Pertinent Medications: Continuous Infusions Bupivacaine 1/16 % (0.625 mg/mL) plus Fentanyl (2 micrograms/mL) infusing at 6 mls/hour plus PCEA at 3 ml every 20 minutes (received 22 boluses of 29 attempts) Tylenol 1000 mg po q 6 hours Oxycodone 5-15 mg po q 4 hours PRN one dose overnight Dilaudid 0.2 mg IV q 2 hours PRN (none) Heparin 5000 U Q 12 Hr Assessment: Numerical Rating Scale (NRS) 0.5 /10 Pain now is well controlled ROS: GI/Bowels Clears, -Flatus Nausea No Pruritis No Intermittent using Nubain with relief Drowsiness No Patient is awake and alert. Deep breathing and coughing well. IS demonstrated to 2000 mL Moves legs without difficulty. Epidural insertion site clean and without signs of infection. Plan: Continue current regimen as pt has just started clear liquids and is not passing flatus. Plan discussed with patient/RN/team. Please call with any questions or concerns. In the presence of Dr. Smalls, I am taking down these notes. MARS SCHREIBER RN 05/22/2016 Pager # [phone] Ria Schreiber RN, has performed the documentation for this encounter in the presence of and acting as a scribe for MAUREEN SMALLS MD. I performed the above scribed service and agree with the accuracy of the documentation in this encounter. * Francois Bowie MD - 05/22/2016 9:15 AM EST General Surgery Resident Inpatient Progress Note ID: Cody Bolden is a 65 y.o. 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 Hospital course: POD 0 - s/p Boari flap from bladder to proximal transplant ureter POD 1 - Tolerating clears, good UOP. Nephrostomy tube capped. 05/20 - Intraop findings: 1-Graft ureter completely stuck in pelvis, dissected up until the renal pelvis. Boari flap performed and anastomosed to proximal graft ureter 2-[place] left ureter divided and dissected then ligated after observing it throughout the procedurewithout urine production 24 hour events: ?? No acute events ?? Nephrostomy tube capped yesterday; no increase in LEEANNA drain output. ?? Tolerating clears, good UOP. Denies f/c/n/v ?? Ambulating without issue ?? No flatus, BM yet O: Last value Range last 24hrs Temperature Temp: 36.5 ??C (97.7 ??F) Temp: [36.3 ??C (97.3 ??F)-36.6 ??C (97.9 ??F)] Heart Rate Heart Rate: 62 Heart Rate: -- Blood Pressure BP: 139/72 BP: (127-139)/(69-72) Respiratory Rate Resp: 18 Resp: [16-18] SpO2 SpO2: 91 % SpO2: [89 %-96 %] 05/21 0701 - 05/22 0700 In: 4094 [P.O.:1870; I.V.:1937] Out: 4650 [Urine:4590] Physical Exam: General: NAD, resting comfortably, pleasant, conversant HEENT: PERRL, anicteric sclerae CVS: RRR Pulm: comfortable on RA Abd: soft, nontender, non-distended. Midline dressing removed, incision closed with dermabond and c/d/i. LEEANNA drain with s/s output : LLQ nephrostomy capped. Whaley with light yellow urine. Ext: wwp Neuro: nonfocal,moving all four extremities spontaneously Recent Labs 05/22/16 0729 05/21/16 0553 05/20/16 2215 05/20/16 0547 WBC 10.5* 11.3* 10.2* 8.0 HGB 12.8* 13.5* 13.9 14.1 HCT 36.7* 37.8* 40.6 40.0* PLATELET 210 222 214 214 Recent Labs 05/22/16 0729 05/21/16 0553 05/20/16 2215 05/20/16 0547 NA 137 136 138 138 K 4.0 4.5 4.3 3.5 CL 101 101 104 100 CO2 22 18* 20* 24 BUN 19 17 16 12 CREATININE 1.37 1.27 1.21 1.14 GLUCOSE 159 269* -- 150 CALCIUM 8.9 8.4* 8.4* 9.0 MAGNESIUM 0.65* 0.51* 0.51* 0.55* PHOS 2.6 2.4* 3.0 2.4* Consults \ Infectious disease: Recommendations: ?? -Switch to keflex for 5 more days -Would keep on the vanco for a couple of days, depending on plans for the perc neph tube. ?? -Will treat HCV as an outpt, see above. ?? -OK to stop valcyte in the next few weeks, see above. --- ASSESSMENT: Cody Bolden is a 65 y.o. male on alf IV abx for coag neg staph bacteremia from a nephrostomy tube initially placed for ureteral stricture who presents with dehydration, fatigue, now improved. Initial urine cx with klebsiella, treated with ancef and vancomycin. Awaiting return of bowel function; at that time, will transition IV to PO meds. PLAN: Dehydration - Continue NS@100 - Replete lytes prn - Clear liquid diet (500cc limit) UTI, previous staph bacteremia - Restart vancomycin for ~3 days per ID - Continue ancef until tolerating PO and then transition to Keflex for 5 day course - Appreciate ID reqs - C.diff negative Boari flap from bladder to proximal transplant ureter - Awaiting return of bowel function - Nephrostomy tube to remain capped; Monitor LEEANNA for signs of urine leak - UA dirty; f/u UCx - Strict I/O's - Follow up pathology - Pain controlled with PCEA; per APS, will continue until return of bowel function and then transition to PO meds Immunosuppression - Prograf 1/0.5 - Cellcept 250mg bid - Valcyte 450mg bid Dispo: Floor, full code Francois Bowie MD Transplant Surgery [phone] Associated attestation - Que Amaro MD - 05/24/2016 12:25 PM EST I have seen the patient and reviewed the resident's above history and I agree with the details as written. The assessment and plan were formulated in discussion with me and I agree with them as documented. * Jay Vargas MD - 05/22/2016 9:00 AM EST INPATIENT DAILY PROGRESS NOTE Patient Name: Cody Bolden Patient Age: 65 y.o. Birthdate: 1950 Admit date: 05/13/2016 Attending Physician: Que Amaro,* Summary of Assessment/Plan: Patient doing well POD2. Neph tube to remain capped at this time. Will continue to follow. ID: Cody Bolden is a 65 y.o. 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 Most recently with coag neg staph bacteremia and on daily daptomycin infusions, UTI during current admission with klebsiella cx. He is now POD1 s/p reimplantation of this transplant (left side) 24hr events/S: No acute events overnight. This morning numbness seems to be decreasing in his left hand. Pain is well controlled. Tolerating CLD with fluid restriction, no n/v, no BM or flatus. Voiding into whaley + neph tube in place. No CP/SOB O: Last value Range last 24hrs Temperature Temp: 36.5 ??C (97.7 ??F) Temp: [36.3 ??C (97.3 ??F)-36.6 ??C (97.9 ??F)] Heart Rate Heart Rate: 62 Heart Rate: -- Blood Pressure BP: 139/72 BP: (127-139)/(69-72) Respiratory Rate Resp: 18 Resp: [16-18] SpO2 SpO2: 91 % SpO2: [89 %-96 %] 05/21 0701 - 05/22 0700 In: 4094 [P.O.:1870; I.V.:1937] Out: 4650 [Urine:4590] Clear Liquid; 500 mL FLUID Physical Exam: General: NAD, A&Ox3, resting in bed, cooperative HEENT: normocephalic, anicteric sclerae CVS: RRR, no m/r/g Pulm: CTAB, no wheezes or rhonchi Abd: soft, appropriately tender, non-distended. No guarding. Incision sites c/d/i Skin: warm, dry Ext: well perfused, no edema. Neuro: Grossly intact, moving all four extremities spontaneously. Numbness to sensation in left hand, digits 1-3 and half of 4th digit. Lines/Drains: Recent Labs 05/22/16 0729 05/21/16 0553 05/20/16 2215 05/20/16 0547 WBC 10.5* 11.3* 10.2* 8.0 HGB 12.8* 13.5* 13.9 14.1 HCT 36.7* 37.8* 40.6 40.0* PLATELET 210 222 214 214 Recent Labs 05/22/16 0729 05/21/16 0553 05/20/16 2215 05/20/16 0547 NA 137 136 138 138 K 4.0 4.5 4.3 3.5 CL 101 101 104 100 CO2 22 18* 20* 24 BUN 19 17 16 12 CREATININE 1.37 1.27 1.21 1.14 GLUCOSE 159 269* -- 150 CALCIUM 8.9 8.4* 8.4* 9.0 MAGNESIUM 0.65* 0.51* 0.51* 0.55* PHOS 2.6 2.4* 3.0 2.4* Other Labs: Imaging: AM CXR: FINDINGS: A percutaneous stent projects over the left iliac wing with tip projecting over the superior left sacroiliac joint, likely region of the transplant kidney pelvis. A second stent extends from the same region with distal end projecting over the expected region of the bladder. A surgical drain is in place with tip also projecting over the left sacrum. There is a normal bowel gas pattern. Visualized lung bases are clear. Epidural catheter is partially visualized. ASSESSMENT: Cody Bolden is a 65 y.o. male s/p Boari flap from bladder to proximal transplant ureter on alf antibiotics for coag negative staph bacteremia. PLAN: - Appreciate ID recs for appropriate antibiotic regimen given recent coag neg staph bacteremia and klebsiella UTI. - Neph tube to remain capped - OT to address hand numbness - Further care per transplant - Urology will continue to follow DISPO: Stable on floor. Code status: FULL Jay Vargas MD * Aubrey Horvath MD - 05/21/2016 2:53 PM EST Infectious Disease Attending Follow-up Note ID Issues: Klebsiella UTI CONS catheter infection BK viruria- possible cause of stricture HCV - chronic 24 Hour Events: Surgery yesterday Pertinent Medications: Cefazolin valcyte 450mg po bid Vancomycin - last dose given at 5AM today. Immunosuppression: Prograf 1/.5 cellcept 25 q12 ROS: Doing well after surgery. Eating and drinking. Up walking around. Neph tube capped and good urine output. No f/c/s. No n/v. Physical Exam: Last set of vitals and range over past 24 hours: Last value Range last 24 hrs Temperature Temp: 36.8 ??C (98.2 ??F) Temp: [36.4 ??C (97.5 ??F)-36.8 ??C (98.2 ??F)] Heart Rate Heart Rate: 62 Heart Rate: [53-66] Blood Pressure BP: 129/72 BP: (127-171)/(64-83) Respiratory Rate Resp: 20 Resp: [14-20] SpO2 SpO2: 91 % SpO2: [91 %-95 %] Gen: in NAD HEENT: no icterus Chest: basilar rales Cor: S1, S2, no M/R/G Abd: surgical sites look good Ext: some edema Skin: no rash Laboratory Data: Reviewed Microbiology (reviewed): None new Diagnostics: I have independently visualized the following studies: None new Impressions: UTI's - S/p revision surgery. Now on cefazolin for the klebsiella. He still has the perc. neph tube, which was now capped. I would switch to keflex for 5 more days to cover the UTI. I would give him a few days of IV vanco mary-op, while he is here since he still has the perc neph and had the resistant coag neg staph previously. HCV - genotype 1a, no NS5a mutation. HCV vl repeated after transplant from HCV+ donor and no alternative genotype reported. Report of fibroscan without fibrosis. Will plan to see after he is clincally stable as an outpatient. Order a fibrosure to ensure all OK and proceed with HCV therapy. We will see where his renal function settles out and hope we have no major restrictions on treatment options, however will not use protease inhibitors due to interactions. Prophylaxis: CMV - Recipient negative, I don't know donor status, but he has had >6 months of valcyte and immunosuppression is low. Would be reasonable to stop the valcyte now and follow clinically after he begins to recover. Would keep for the next week or so since CMV activation acutely after surgery wouldnot be a good thing. . Recommendations: Switch to keflex for 5 more days Would keep on the vanco for a couple of days, depending on plans for the perc neph tube. Will treat HCV as an outpt, see above. OK to stop valcyte in the next few weeks, see above. Discussed with team * Maureen Smalls MD - 05/21/2016 1:47 PM EST Acute Pain Service - Epidural Daily Management Physician: Maureen Smalls M.D. Time of Service: 08:45 a.m. VITAL SIGNS: BP 129/72 (BP Location (NBP): Right arm) Pulse 62 Temp 36.8 ??C (98.2 ??F) (Oral) Resp 20 Ht 177.8 cm (5' 10) Wt 94.4 kg (208 lb 1.8 oz) SpO2 91% BMI 29.86 kg/m2 Epidural day: 2 days s/p placement POD: 1 days s/p Operative Procedures: Procedure(s) with comments: @URETERONEOCYSTOSTOMY ANASTOMOSIS OF SINGLE URETER TO BLADDER - pre op bowel prep Maria Elena and Sondra working together @URETERONEOCYSTOSTOMY ANASTOMOSIS OF SINGLE URETER TO BLADDER Pertinent Medications: Continuous Infusions Bupivacaine 1/16 % (0.625 mg/mL) plus Fentanyl (2 micrograms/mL) infusing at 6 mls/hour plus PCEA at 3 ml every 20 minutes (received 12 boluses of 29 attempts) Tylenol 1000 mg po q 6 hours PRN (2 doses yesterday) Oxycodone 5-15 mg po q 4 hours PRN (none) Dilaudid 0.2 mg IV q 2 hours PRN (none) Assessment: Numerical Rating Scale (NRS) 0/10 Pain now is none ROS: GI/Bowels Tolerating clear liquid diet, has just had jello. Denies passing flatus. Nausea No Pruritis Yes. RN to medicate with Nubain PRN Drowsiness No Patient is awake and alert. Out of bed in chair. Complains of left hand numbness of thumb, second and third fingers. Deep breathing and coughing well. Demonstrates incentive spirometer to 2000 ml. Moves legs without difficulty. Epidural insertion site clean and without signs of infection. Diminished sensation to cold T4-T12 bilaterally. Plan: Continue current regimen. As there is no decreased sensation above T4, it is not likely epidural is responsible for left handnumbness. Patient educated that it is appropriate to continue epidural for excellent analgesia. Plan discussed with patient/RN/team. Please call with any questions or concerns. In the presence of Dr. Smalls, I am taking down these notes. KITTY STEELE RN 05/21/2016 Pager # [phone] Socorro Steele RN, has performed the documentation for this encounter in the presence of and acting as a scribe for MAUREEN SMALLS MD. I performed the above scribed service and agree with the accuracy of the documentation in this encounter. * Francois Bowie MD - 05/21/2016 9:41 AM EST General Surgery Resident Inpatient Progress Note ID: Cody Bolden is a 65 y.o. 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 Hospital course: POD 0 - s/p Boari flap from bladder to proximal transplant ureter 24 hour events: ?? No acute events ?? Doing well this morning, no complaints ?? Tolerating clears, good UOP 05/20 - OR findings: 1-Graft ureter completely stuck in pelvis, dissected up until the renal pelvis. Boari flap performed and anastomosed to proximal graft ureter 2-[place] left ureter divided and dissected then ligated after observing it throughout the procedurewithout urine production O: Last value Range last 24hrs Temperature Temp: 36.8 ??C (98.2 ??F) Temp: [36.4 ??C (97.5 ??F)-36.8 ??C (98.2 ??F)] Heart Rate Heart Rate: 62 Heart Rate: [50-66] Blood Pressure BP: 129/72 BP: (127-171)/(64-83) Respiratory Rate Resp: 20 Resp: [14-20] SpO2 SpO2: 91 % SpO2: [91 %-95 %] 11/15 0701 - 05/21 0700 In: 5004 [P.O.:360; I.V.:4644] Out: 2024 [Urine:1625] Physical Exam: General: NAD, resting comfortably, pleasant, conversant HEENT: PERRL, anicteric sclerae CVS: RRR Pulm: comfortable on RA Abd: soft, nontender, non-distended. Dressings c/d/i. LEEANNA drain with s/s output : LLQ nephrostomy to gravity with clear yellow urine. Whaley with light pink urine. Ext: wwp Neuro: nonfocal,moving all four extremities spontaneously Recent Labs 05/21/16 0553 05/20/16 2215 05/20/16 0547 05/19/16 0417 WBC 11.3* 10.2* 8.0 7.4 HGB 13.5* 13.9 14.1 14.2 HCT 37.8* 40.6 40.0* 40.2* PLATELET 222 214 214 192 PT -- -- -- 13.3 INR -- -- -- 1.0 Recent Labs 05/21/16 0553 05/20/16 2215 05/20/16 0547 05/19/16 0417 NA 136 138 138 140 K 4.5 4.3 3.5 3.9 CL 101 104 100 99 CO2 18* 20* 24 25 BUN 17 16 12 11 CREATININE 1.27 1.21 1.14 1.09 GLUCOSE 269* -- 150 166 CALCIUM 8.4* 8.4* 9.0 9.0 MAGNESIUM 0.51* 0.51* 0.55* 0.68* PHOS 2.4* 3.0 2.4* 2.4* ASSESSMENT: Cody Bolden is a 65 y.o. male on alf IV abx for coag neg staph bacteremia from a nephrostomy tube initially placed for ureteral stricture who presents with dehydration, fatigue. Dehydration improved. Initial urine cx with klebsiella, treated with ancef and vancomycin. Vanco completed, will continue ancef for 10 day course pending ID recommendations. PLAN: Dehydration - Drop NS@150 to 100cc/hr - Replete lytes prn - Clear liquid diet (500cc limit) UTI, previous staph bacteremia - vancomycin course complete - Continue ancef, 10 day course total - Appreciate ID reqs re: duration of ancef and if course needs to be extended - C.diff negative Boari flap from bladder to proximal transplant ureter - Will cap nephrostomy tube this AM and allow urination through whaley - UA and UCx prior to capping - Monitor LEEANNA for signs of urine leak - Strict I/O's - Follow up renal duplex study - Follow up pathology Immunosuppression - Prograf 1/0.5 - Cellcept 250mg bid - Valcyte 450mg bid Dispo: Floor, full code Francois Bowie MD Transplant Surgery [phone] Associated attestation - Que Amaro MD - 05/22/2016 8:19 AM EST I have seen the patient and reviewed the resident's above history and I agree with the details as written. The assessment and plan were formulated in discussion with me and I agree with them as documented. * Jay Vargas MD - 05/21/2016 8:00 AM EST INPATIENT DAILY PROGRESS NOTE Patient Name: Cody Bolden Patient Age: 65 y.o. Birthdate: 1950 Admit date: 05/13/2016 Attending Physician: Que Amaro,* Summary of Assessment/Plan: Patient doing well POD1, graft will need abx recs from ID and will make a consult to OT to address hand numbness which is likely positional. Neph tube to be capped at this time. Will continue to follow. ID: Cody Bolden is a 65 y.o. 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 Most recently with coag neg staph bacteremia and on daily daptomycin infusions, UTI during current admission with klebsiella cx. He is now POD1 s/p reimplantation of this transplant (left side) 24hr events/S: No acute events overnight. This morning complains of numbness in his left hand, digits 1-3 and half of the 4th digit. Pain is well controlled. Tolerating CLD with fluid restriction, non/v. No flatus/BM. Voiding into whaley + neph tube in place. No CP/SOB O: Last value Range last 24hrs Temperature Temp: 36.8 ??C (98.2 ??F) Temp: [36.4 ??C (97.5 ??F)-36.8 ??C (98.2 ??F)] Heart Rate Heart Rate: 62 Heart Rate: [50-66] Blood Pressure BP: 129/72 BP: (127-171)/(64-83) Respiratory Rate Resp: 20 Resp: [14-20] SpO2 SpO2: 91 % SpO2: [91 %-95 %] 05/20 0701 - 05/21 0700 In: 5004 [P.O.:360; I.V.:4644] Out: 2024 [Urine:1625] Clear Liquid; 500 mL FLUID Physical Exam: General: NAD, A&Ox3, resting in bed, cooperative HEENT: normocephalic, anicteric sclerae CVS: RRR, no m/r/g Pulm: CTAB, no wheezes or rhonchi Abd: soft, appropriately tender, non-distended. No guarding. Skin: warm, dry Ext: well perfused, no edema. Neuro: Grossly intact, moving all four extremities spontaneously. Numbness to sensation in left hand, digits 1-3 and half of 4th digit. Lines/Drains: Recent Labs 05/21/16 0553 05/20/16 2215 05/20/16 0547 05/19/16 0417 WBC 11.3* 10.2* 8.0 7.4 HGB 13.5* 13.9 14.1 14.2 HCT 37.8* 40.6 40.0* 40.2* PLATELET 222 214 214 192 PT -- -- -- 13.3 INR -- -- -- 1.0 Recent Labs 05/21/16 0553 05/20/16 2215 05/20/16 0547 05/19/16 0417 NA 136 138 138 140 K 4.5 4.3 3.5 3.9 CL 101 104 100 99 CO2 18* 20* 24 25 BUN 17 16 12 11 CREATININE 1.27 1.21 1.14 1.09 GLUCOSE 269* -- 150 166 CALCIUM 8.4* 8.4* 9.0 9.0 MAGNESIUM 0.51* 0.51* 0.55* 0.68* PHOS 2.4* 3.0 2.4* 2.4* Other Labs: Imaging: AM CXR: FINDINGS: A percutaneous stent projects over the left iliac wing with tip projecting over the superior left sacroiliac joint, likely region of the transplant kidney pelvis. A second stent extends from the same region with distal end projecting over the expected region of the bladder. A surgical drain is in place with tip also projecting over the left sacrum. There is a normal bowel gas pattern. Visualized lung bases are clear. Epidural catheter is partially visualized. ASSESSMENT: Cody Bolden is a 65 y.o. male s/p Boari flap from bladder to proximal transplant ureter. PLAN: - Consult ID for appropriate antibiotic regimen given recent coag neg staph bacteremia and klebsiella UTI. - Cap neph tube - Consult to OT to address hand numbness - Further care per transplant - Urology will continue to follow DISPO: Stable on floor. Code status: FULL Jay Vargas MD * Que Hayes MD - 05/21/2016 1:23 AM EST Post-Operative Progress Note Patient: Cody Bolden s/p Surgery: 05/20/2016 [id number] Procedure(s) (LRB): @URETERONEOCYSTOSTOMY ANASTOMOSIS OF SINGLE URETER TO BLADDER (Left) @URETERONEOCYSTOSTOMY ANASTOMOSIS OF SINGLE URETER TO BLADDER (N/A) Surgeon(s) and Role: Panel 1: * Moy Arredondo MD - Primary * Pako Booth MD - Resident-Wringer Operator Panel 2: * Que Amaro MD - Primary: 6 Hr 1 Min 54 Sec * No complications entered in OR log * Short History: awakened from anesthesia, extubated and taken to the recovery room in a stable condition, having suffered no apparent untoward event. Patient location: PACU Post-op Consciousness awake, alert and oriented Post-op pain: Adequate analgesia Post-op nausea: no nausea or vomiting Post-op Cardiovascular Status: No chest pain, chest pressure/discomfort and claudication Post-op Respiratory Status: No shortness of breath, cough and hemoptysis Post-op Wound Status No redness, swelling, pain and discharge clean, dry, intact Pain: in incision Subjective/Events: Patient denies chest pain, shortness of breath, dizziness, headache, abdominal pain, nausea, vomiting. Objective: Vitals: Temp: [36.4 ??C (97.5 ??F)] Heart Rate: [62-66] Resp: [15-18] BP: (127-171)/(64-83) SpO2: [91 %-94 %] Heart Rate from SPO2: [60 bpm-66 bpm] Intake/Output Summary (Last 24 hours) at 05/21/16 0124 Last data filed at 05/20/16 2300 Gross per 24 hour Intake 4650 ml Output 2355 ml Net 2295 ml Exam: General: NAD, awake/alert, responds to questions HEENT: PERRLA, EOMI, normocephalic, atraumatic Cardiac: RRR, S1/S2, No M/R/G Resp: Breathing comfortably Abd: soft, appropriately tender, no guarding or peritoneal signs Ext: WWP. Moving all 4 spontaneously Neuro: No focal deficits. CN II-XII grossly intact. Wound: Dressing: clean, dry, intact A/P: 65 y.o. year old male POD#0 s/p above procedure. he is having the following post op complications: none - Vitals stable. - Awaiting renal ultrasound procedure. - continue all post-operative care Que Hayes MD 05/21/2016 1:24 AM * Francois Bowie MD - 05/20/2016 9:14 AM EST General Surgery Resident Inpatient Progress Note ID: Cody Boldne is a 65 y.o. 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 Hospital Day: 7 24 hour events: ?? No acute events ?? Doing well this morning, no complaints ?? Bowel prep completed successfully per Urology instructions ?? To OR today O: Last value Range last 24hrs Temperature Temp: 36.2 ??C (97.2 ??F) Temp: [36.2 ??C (97.2 ??F)-37 ??C (98.6 ??F)] Heart Rate Heart Rate: 60 Heart Rate: -- Blood Pressure BP: 131/70 BP: (131-155)/(70-77) Respiratory Rate Resp: 18 Resp: [16-18] SpO2 SpO2: 94 % SpO2: [90 %-96 %] 05/19 0701 - 05/20 0700 In: 7768 [P.O.:4645; I.V.:3123] Out: 3950 [Urine:3950] Physical Exam: General: NAD, resting comfortably, pleasant, conversant HEENT: PERRL, anicteric sclerae CVS: RRR Pulm: comfortable on RA Abd: soft, nontender, non-distended : LLQ nephrostomy to gravity with clear yellow urine Ext: wwp Neuro: nonfocal,moving all four extremities spontaneously Recent Labs 05/20/16 0547 05/19/16 0417 05/18/16 0554 WBC 8.0 7.4 7.9 HGB 14.1 14.2 14.4 HCT 40.0* 40.2* 40.5 PLATELET 214 192 205 PT -- 13.3 -- INR -- 1.0 -- Recent Labs 05/20/16 0547 05/19/16 0417 05/18/16 0554 NA 138 140 139 K 3.5 3.9 3.5 CL 100 99 98 CO2 24 25 27 BUN 12 11 11 CREATININE 1.14 1.09 1.15 GLUCOSE 150 166 168 CALCIUM 9.0 9.0 9.1 MAGNESIUM 0.55* 0.68* 0.68* PHOS 2.4* 2.4* 2.8 ASSESSMENT: Cody Bolden is a 65 y.o. male on moth exterminator IV abx for coag neg staph bacteremia who presents with dehydration, fatigue. Dehydration improved. Initial urine cx with klebsiella. Continue vanc and ancef through surgery. We will plan to keep him in house until the time of his surgery on Thursday. Bowel prep Thursday completed, to OR today. PLAN: Dehydration - NS@150cc/hr - Replete lytes prn - NPO for OR UTI, previous staph bacteremia - Continue vancomycin 1.5g BID, follow up trough level. Goal trough 15. - Continue ancef - Appreciate ID reqs - C.diff negative Immunosuppression - Prograf 1/0.5 - Cellcept 250mg bid - Valcyte 450mg bid Other - Clear liquid diet, NPO for OR - Active type and screen and INR obtained - Home meds Dispo: Floor, full code Francois Bowie MD Transplant [id number] Associated attestation - Que Amaro MD - 05/20/2016 1:58 PM EST I have seen the patient and reviewed the resident's above history and I agree with the details as written. The assessment and plan were formulated in discussion with me and I agree with them as documented. To OR today for reconstruction of his urologic tract. Anticipate that we will be able to revise with psoas hitch and directly anastomose bladder to the pelvis of the kidney. Will send ureter for [id number] to determine whether there is evidence of BK virus. Discussed the procedure in detail with the patient who understands the planned operation and the associated risks. He understands that there is a risk of injury to the kidney and that this can result in loss of the renal allograft. He alsounderstands that I am concerned that this will be a very difficult dissection because of the recentissues with urinary tract infections that are likely to have resulted in inflammation of the graft tissue. This poses a risk to the reconstruction and adequacy of the repair. We will not know to whatdegree this is an issue until we have the kidney exposed and can evaluate it in the OR. Unfortunately, with his relapsing infectious issues I don't feel that we have an alternative because there is no way to eliminate the urologic hardware at this stage. The patient is in agreement with proceeding to the OR. Dr. Arredondo intends to start the case and I will join him during the procedure to assist with exposure of the renal allograft. Normal allograft function. Will continue IVF hydration today in the setting of the bowel prep and NPO status. I reviewed and adjusted his immunosuppression as follows: Prograf reduced to 1/0.5 yesterday for level of 8.1, will repeat level tomorrow Cellcept 250 mg po bid Blood and repeat urine cultures remain negative. Remains on IV Ancef and vancomycin. Will review antibiotic coverage with ID tomorrow to discuss coverage based upon type of reconstruction and the type of stenting / duration of stenting that is necessary based upon the procedure that is performed today. Stable, floor status. * Francois Bowie MD - 05/19/2016 11:28 AM EST General Surgery Resident Inpatient Progress Note ID: Cody Bolden is a 65 y.o. 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 Hospital Day: 6 24hr/S: ?? Doing well this morning, no complaints ?? No acute events O: Last value Range last 24hrs Temperature Temp: 36.8 ??C (98.2 ??F) Temp: [36.6 ??C (97.9 ??F)-36.9 ??C (98.4 ??F)] Heart Rate Heart Rate: 60 Heart Rate: -- Blood Pressure BP: 133/72 BP: (133-153)/(71-77) Respiratory Rate Resp: 18 Resp: [17-20] SpO2 SpO2: 98 % SpO2: [92 %-98 %] 05/18 0701 - 05/19 0700 In: 4817 [P.O.:2480; I.V.:2337] Out: 6500 [Urine:6500] Physical Exam: General: NAD, resting comfortably, pleasant, conversant HEENT: PERRL, anicteric sclerae CVS: RRR Pulm: comfortable on RA Abd: soft, nontender, non-distended : LLQ nephrostomy to gravity with clear yellow urine Ext: wwp Neuro: nonfocal,moving all four extremities spontaneously Recent Labs 05/19/16 0417 05/18/16 0554 05/17/16 0535 WBC 7.4 7.9 6.8 HGB 14.2 14.4 14.2 HCT 40.2* 40.5 39.4* PLATELET 192 205 213 PT 13.3 -- -- INR 1.0 -- -- Recent Labs 05/19/16 0417 05/18/16 0554 05/17/16 0535 NA 140 139 141 K 3.9 3.5 3.5 CL 99 98 102 CO2 25 27 26 BUN 05 16 13 CREATININE 1.09 1.15 1.23 GLUCOSE 166 168 164 CALCIUM 9.0 9.1 8.9 MAGNESIUM 0.68* 0.68* 0.73 PHOS 2.4* 2.8 2.9 ASSESSMENT: Cody Bolden is a 65 y.o. male on alf IV abx for coag neg staph bacteremia who presents with dehydration, fatigue. Dehydration improved. Initial urine cx with klebsiella. Continue vanc and ancef through surgery. We will plan to keep him in house until the time of his surgery on Thursday. Bowel prep Thursday with CLD. PLAN: Dehydration - NS@150cc/hr - Replete lytes prn - Clear liquid diet UTI, previous staph bacteremia - Continue vancomycin 1.5g BID, follow up trough level. Goal trough 15. - Appreciate ID reqs - C.diff negative Immunosuppression - Prograf 1mg bid - Cellcept 250mg bid - Valcyte 450mg bid Other - Clear liquid diet - Bowel prep per urology reqs for surgery tomorrow - Active type and screen and INR obtained - Home meds Dispo: Floor, full code Francois Bowie MD Transplant [id number] Associated attestation - Que Amaro MD - 05/20/2016 1:48 PM EST I have seen the patient and reviewed the resident's above history and I agree with the details as written. The assessment and plan were formulated in discussion with me and I agree with them as documented. * Marcio Haynes MD - 05/18/2016 6:21 AM EST General Surgery Resident Inpatient Progress Note ID: Cody Bolden is a 65 y.o. 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 Hospital Day: 5 24hr/S: ?? Doing well this morning, no complaints ?? No acute events O: Last value Range last 24hrs Temperature Temp: 36.9 ??C (98.4 ??F) Temp: [36.2 ??C (97.2 ??F)-37 ??C (98.6 ??F)] Heart Rate Heart Rate: 60 Heart Rate: [60] Blood Pressure BP: 169/75 BP: (141-179)/(71-77) Respiratory Rate Resp: 18 Resp: [18-25] SpO2 SpO2: 95 % SpO2: [93 %-98 %] 05/17 0701 - 05/18 0700 In: 6315 [P.O.:3527; I.V.:2538] Out: 6075 [Urine:6075] Physical Exam: General: NAD, resting comfortably, pleasant, conversant HEENT: PERRL, anicteric sclerae CVS: RRR Pulm: comfortable on RA Abd: soft, nontender, non-distended : LLQ nephrostomy to gravity with clear yellow urine Ext: wwp Neuro: nonfocal,moving all four extremities spontaneously Recent Labs 05/18/16 0554 05/17/16 0535 05/16/16 0624 WBC 7.9 6.8 7.5 HGB 14.4 14.2 14.4 HCT 40.5 39.4* 41.1 PLATELET 205 213 215 Recent Labs 05/17/16 0535 05/16/16 0624 NA 141 137 K 3.5 3.4* CL 102 100 CO2 26 24 BUN 13 11 CREATININE 1.23 1.30 GLUCOSE 164 180 CALCIUM 8.9 9.0 MAGNESIUM 0.73 0.58* PHOS 2.9 2.6 ASSESSMENT: Cody Bolden is a 65 y.o. male on moth exterminator IV abx for coag neg staph bacteremia who presents with dehydration, fatigue. Dehydration improved. Initial urine cx with klebsiella. Continue vanc and ancef through surgery. We will plan to keep him in house until the time of his surgery on Thursday. Bowel prep Thursday with CLD. PLAN: Dehydration - Bolus 2L IV this evening in preparation for bowel prep - Replete lytes UTI, previous staph bacteremia - Continue vancomycin 1.5g BID, follow up trough level. Goal trough 15. - Add zosyn for GNR coverage - ID consult - C.diff negative Immunosuppression - Prograf 1mg bid - Cellcept 250mg bid - Valcyte 450mg bid Other - Regular diet - Home meds Dispo: Floor, full code Marcio Haynes MD Transplant [id number] Associated attestation - Que Amaro MD - 05/19/2016 9:16 AM EST I have seen the patient and reviewed the resident's above history and I agree with the details as written. The assessment and plan were formulated in discussion with me and I agree with them as documented. * Marcio Haynes MD - 05/17/2016 8:09 AM EST General Surgery Resident Inpatient Progress Note ID: Cody Bolden is a 65 y.o. 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 Hospital Day: 4 24hr/S: ?? Doing well this morning, no complaints ?? No acute events ?? Repeat urine cx with ngtd O: Last value Range last 24hrs Temperature Temp: 36.5 ??C (97.7 ??F) Temp: [36.5 ??C (97.7 ??F)-37 ??C (98.6 ??F)] Heart Rate Heart Rate: 64 Heart Rate: [63-66] Blood Pressure BP: 138/70 BP: (136-172)/(68-78) Respiratory Rate Resp: 16 Resp: [16-25] SpO2 SpO2: 94 % SpO2: [93 %-95 %] 05/16 0701 - 05/17 0700 In: 5996 [P.O.:3746; I.V.:2250] Out: 5300 [Urine:5300] Physical Exam: General: NAD, resting comfortably, pleasant, conversant HEENT: PERRL, anicteric sclerae CVS: RRR Pulm: comfortable on RA Abd: soft, nontender, non-distended : LLQ nephrostomy to gravity with clear yellow urine Ext: wwp Neuro: nonfocal,moving all four extremities spontaneously Recent Labs 05/17/16 0535 05/16/16 0624 05/15/16 0315 WBC 6.8 7.5 9.1 HGB 14.2 14.4 14.7 HCT 39.4* 41.1 41.3 PLATELET 213 215 209 Recent Labs 05/17/16 0535 05/16/16 0624 05/15/16 0315 NA 141 137 140 K 3.5 3.4* 3.6 CL 102 100 101 CO2 26 24 26 BUN 13 11 9* CREATININE 1.23 1.30 1.23 GLUCOSE 164 180 162 CALCIUM 8.9 9.0 9.0 MAGNESIUM 0.73 0.58* 0.68* PHOS 2.9 2.6 2.9 ASSESSMENT: Cody Bolden is a 65 y.o. male on moth exterminator IV abx for coag neg staph bacteremia who presents with dehydration, fatigue. Dehydration improved. Initial urine cx with klebsiella. Zosynswitched to ancef. We would like to keep the vancomycin until surgery. We will plan to keep him in house until the time of his surgery on Thursday. PLAN: Dehydration - Bolus 2L IV and stop continuous rate to try to give him some time without infusions - Replete lytes UTI, previous staph bacteremia - Continue vancomycin 1.5g BID, follow up trough level. Goal trough 15. - Add zosyn for GNR coverage - ID consult - C.diff negative Immunosuppression - Prograf 1mg bid - Cellcept 250mg bid - Valcyte 450mg bid Other - Regular diet - Home meds Dispo: Floor, full code Marcio Haynes MD Transplant [id number] Associated attestation - Que Amaro MD - 05/17/2016 1:39 PM EST I have seen the patient and reviewed the resident's above history and I agree with the details as written. The assessment and plan were formulated in discussion with me and I agree with them as documented. Mr. Bolden remains afebrile and has had no rigors in the last 24 hours. His graft function remains normal. He continues to require supplemental IVF because he has not been able to meet his I/O balance with 5L of urine output. Will continue IVF today. No indication of intravascular volume depletion today. His blood cultures from admission remain negative and repeat urine cultures on antibiotics have nowcleared. We converted to a vancomycin + IV ancef regimen at the recommendations of the ID team. Theurine culture grew out Klebsiella on presentation. This was not being covered by the outpatient abxregimen for his gram positive organism. Will continue IV antibiotics this weekend and plan to proceed with his urologic reconstruction procedure that is scheduled for Thursday. He will remain an inpatient on IV antibiotics through the operation. I had a discussion with the patient about the likelihood that the graft will be inflamed from the recent infectious processes and that this could complicate his surgery. It will make the dissection difficult and there are increased bleeding risks. This poses a risk to injury to the graft. Unfortunately, we are committed to hardware in the urologic tract until we reconstruct the urine outflowas the entire ureter necrosed and is not viable. The patient understands these issues. Will plan to send preoperative labs on Thursday am with his am labs. This will include a type and screen, INR (in the setting of his known Hep C without previous demonstration of cirrhosis). Dr. Lewisquested a bowel prep which we will begin on Thursday. Will correct his mild hypokalemia this and optimize electrolytes in advance of the surgery. We are holding anti platelet agents because of the bleeding risks that will be encountered with this surgery. Discussed this issue with the patient as well and he understands that this could increase his risk for CVA/TIA. The Plavix was started in the spring in the setting of TIA like event that had a negative workup. This information is documented in Dr. Brown's 01/03/16 note. We will plan to resume this agent postoperatively when the bleeding risk is lower. Stable, floor status. * Herlinda Bell, RD - 05/16/2016 1:45 PM EST Patient readmitted from outpatient Kidney Transplant clinic on 05/13/2016, dehydrated and a UTI. Patient is on a regular diet. This food writer spoke with patient and his . He feeling much better than day of admission. He is eating well; he had 1/2 grilled cheese s/w, tomato soup, 2 cartons of whole milk, and a slice of chocolate cake for lunch. He is looking forward to his reconstructive surgery on Thursday. Estimated body mass index is 31.47 kg/(m^2) as calculated from the following: Height as of this encounter: 177.8 cm (5' 10). Weight as of this encounter: 99.5 kg (219 lb 5.7 oz). Admission weight: 95.3kg (210#) Lab Results Component Value Date HGB 14.4 05/16/2016 HCT 41.1 05/16/2016 NA 137 05/16/2016 K 3.4 (L) 05/16/2016 BUN 11 05/16/2016 CREATININE 1.30 05/16/2016 GLUCOSE 180 05/16/2016 CALCIUM 9.0 05/16/2016 MAGNESIUM 0.58 (L) 05/16/2016 PHOS 2.6 05/16/2016 ALBUMIN 4.0 05/13/2016 Cholesterol (in eD-H the component name CHLPL=Cholesterol) Lab Results Component Value Date CHLPL 134 05/13/2016 No nutrition interventions required today. Patient should continue with magnesium supplementation. Patient eating well. Follow up next week and intervene prn. * Aubrey Horvath MD - 05/16/2016 1:23 PM EST INFECTIOUS DISEASE FOLLOW-UP NOTE Active ID Issue(s): UTI - GNR Antimicrobial Therapy: Vancomycin Piperacillin/tazobactam Intercurrent Events/Subjective Data: Feel much better. No new complaints. Plan to keep him in the hospital until reconstructive surgery next week. Physical Exam: Last value Range last 24 hrs Temperature Temp: 36.6 ??C (97.9 ??F) Temp: [36.5 ??C (97.7 ??F)-37.2 ??C (99 ??F)] General Looks well, animated, sitting in chair HEENT No jaundice Heart Regular Lungs Clear Abdomen Soft, not tender, nephrostomy with clear urine Extremities No edema Skin No rash Neuro Grossly intact Laboratory: Lab Results Component Value Date WBC 7.5 05/16/2016 HGB 14.4 05/16/2016 HCT 41.1 05/16/2016 PLATELET 215 05/16/2016 Lab Results Component Value Date CREATININE 1.30 05/16/2016 Lab Results Component Value Date ALT 17 05/13/2016 AST 18 05/13/2016 ALKPHOS 63 05/13/2016 BILITOT 2.4 (H) 05/13/2016 Microbiology: Urine Cultures: Klebsiella pneumoniae ? MICROSCAN METHOD ? Amikacin Sensitive ? Ampicillin Resistant ? Ampicillin + Sulbactam Sensitive ? Aztreonam Sensitive ? Cefazolin Sensitive ? Cefepime Sensitive ? Ceftazidime Sensitive ? Ceftriaxone Sensitive ? Cefuroxime Sensitive ? Ciprofloxacin Sensitive ? Gentamicin Sensitive ? Levofloxacin Sensitive ? Meropenem Sensitive ? Nitrofurantoin Sensitive ? Piperacillin/Tazobactam Sensitive ? Tetracycline Sensitive ? Tobramycin Sensitive ? Trimethoprim/Sulfa Sensitive Assessment: Cody Bolden is a 65 y.o. male with a history HCV, DM, HTN and renal failure due to hypertensive nephropathy, who received a donor kidney transplantation in 09/2015, which has been complicated by a ureteral stricture, requiring a permanent percutaneous nephrostomy despite multiple dilatations. He has had multiple bouts of bacteremia and UTI due to his nephrostomy. ?? He is now admitted with a UTI due to a sensitive Klebsiella. Blood cultures negative. We recommend to narrow antibiotics to cephalexin 500 mg PO qid to complete a two week course for complicated UTI, which will cover him trough surgery. Based on culture data, there is no indication tocontinue vancomycin at this point, but in light of recurrent coagulase-negative staphylococcus aureus UTI and bacteremia, it is reasonable to continue this prophylactically through surgery. ?? This patient was seen and discussed with ID attending Dr. Horvath. Recommendations discussed withprimary treating team. We are signing off. Please contact us for any other questions. ?? Franko Kim MD Infectious Disease Fellow Pager [phone] Attending Addendum: I have seen and examined the patient, reviewed the data and agree with the note by Dr. Tipton. We will see him as an outpatient to take care of his hepatitis c in the future. * Marcio Haynes MD - 05/16/2016 12:17 PM EST General Surgery Resident Inpatient Progress Note ID: Cody Bolden is a 65 y.o. 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 Hospital Day: 3 24hr/S: ?? Doing well this morning, no complaints ?? No acute events ?? Urine cx with klebsiella pneumoniae. F/u urine cx pending. BCx NGTD. O: Last value Range last 24hrs Temperature Temp: 36.6 ??C (97.9 ??F) Temp: [36.5 ??C (97.7 ??F)-37.2 ??C (99 ??F)] Heart Rate Heart Rate: 66 Heart Rate: [63-71] Blood Pressure BP: 145/73 BP: (145-185)/(69-96) Respiratory Rate Resp: 20 Resp: [18-20] SpO2 SpO2: 94 % SpO2: [88 %-95 %] 05/15 0701 - 05/16 0700 In: 5780.6 [P.O.:3065; I.V.:2523] Out: 5875 [Urine:5875] Physical Exam: General: NAD, resting comfortably, pleasant, conversant HEENT: PERRL, anicteric sclerae CVS: RRR Pulm: comfortable on RA Abd: soft, nontender, non-distended : LLQ nephrostomy to gravity with clear yellow urine Ext: wwp Neuro: nonfocal,moving all four extremities spontaneously Recent Labs 05/16/16 0624 05/15/16 0315 05/14/16 0645 WBC 7.5 9.1 9.4 HGB 14.4 14.7 14.2 HCT 41.1 41.3 41.1 PLATELET 215 209 208 Recent Labs 05/16/16 0624 05/15/16 0315 05/14/16 0645 NA 137 140 139 K 3.4* 3.6 3.3* CL 100 101 100 CO2 24 26 25 BUN 11 9* 12 CREATININE 1.30 1.23 1.22 GLUCOSE 180 162 165 CALCIUM 9.0 9.0 8.8 MAGNESIUM 0.58* 0.68* 0.60* PHOS 2.6 2.9 2.1* ASSESSMENT: Cody Bolden is a 65 y.o. male on moth exterminator IV abx for coag neg staph bacteremia who presents with dehydration, fatigue. Dehydration improved. Initial urine cx with klebsiella. Will discuss narrowing zosyn with ID. We would like to keep the vancomycin until surgery. We will plan tokeep him in house until the time of his surgery. PLAN: Dehydration - Continue NS @ 100/hr - Replete lytes UTI, previous staph bacteremia - Continue vancomycin 1.5g BID, follow up trough level. Goal trough 15. - Add zosyn for GNR coverage - ID consult - C.diff negative Immunosuppression - Prograf 1mg bid - Cellcept 250mg bid - Valcyte 450mg bid Other - Regular diet - Home meds Dispo: Floor, full code Marcio Haynes MD Transplant [id number] Associated attestation - Que Amaro MD - 05/17/2016 10:40 AM EST I have seen the patient and reviewed the resident's above history and I agree with the details as written. The assessment and plan were formulated in discussion with me and I agree with them as documented. * Marcio Haynes MD - 05/15/2016 9:10 AM EST General Surgery Resident Inpatient Progress Note ID: Cody Bolden is a 65 y.o. 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 Hospital Day: 2 24hr/S: ?? Feels maybe a little better, but very sleepy, temp to 100C overnight ?? No acute events, denies n/v/sob O: Last value Range last 24hrs Temperature Temp: 36.7 ??C (98.1 ??F) Temp: [36.4 ??C (97.5 ??F)-37.8 ??C (100 ??F)] Heart Rate Heart Rate: 73 Heart Rate: [66-73] Blood Pressure BP: 167/88 BP: (147-177)/(69-88) Respiratory Rate Resp: 18 Resp: [16-18] SpO2 SpO2: 94 % SpO2: [87 %-95 %] 05/14 0701 - 05/15 0700 In: 3762 [P.O.:1260; I.V.:2422] Out: 4300 [Urine:4300] Physical Exam: General: NAD, resting comfortably, pleasant, conversant HEENT: PERRL, anicteric sclerae CVS: RRR Pulm: comfortable on RA Abd: soft, nontender, non-distended : LLQ nephrostomy to gravity with clear yellow urine Ext: wwp Neuro: nonfocal,moving all four extremities spontaneously Recent Labs 05/15/16 0315 05/14/16 0645 05/13/16 1000 WBC 9.1 9.4 11.9* HGB 14.7 14.2 15.7 HCT 41.3 41.1 44.1 PLATELET 209 208 267 Recent Labs 05/15/16 0315 05/14/16 0645 05/13/16 1000 NA 140 139 136 K 3.6 3.3* 3.9 CL 101 100 96* CO2 26 25 24 BUN 9* 12 15 CREATININE 1.23 1.22 1.39 GLUCOSE 162 165 174 CALCIUM 9.0 8.8 9.5 MAGNESIUM 0.68* 0.60* 0.57* PHOS 2.9 2.1* 2.7 ASSESSMENT: Cody Bolden is a 65 y.o. male on moth exterminator IV abx for coag neg staph bacteremia who presents with dehydration, fatigue. Will continue broad coverage until surgery, he may just stay in the hospital until surgery given minimal improvement. His PICC was manipulated at the infusion center and may have been reinserted a small amount, so we will remove it today due to infection risk. Repeat UA today. PLAN: Dehydration - Continue NS @ 100/hr - Replete lytes UTI, previous staph bacteremia - Continue vancomycin 1.25g BID, follow up trough level - Add zosyn for GNR coverage - ID consult - C.diff negative Immunosuppression - Prograf 1mg bid - Cellcept 250mg bid - Valcyte 450mg bid Other - Regular diet - Home meds Dispo: Floor, full code Marcio Haynes MD Transplant [id number] Associated attestation - Que Amaro MD - 05/16/2016 10:16 AM EST I have seen the patient and reviewed the resident's above history and I agree with the details as written. The assessment and plan were formulated in discussion with me and I agree with them as documented. * Herlinda Bell RD - 05/14/2016 1:44 PM EST [facility] [place] Post Transplant Nutrition Follow Up Date: 05/14/2016 Patient: Cody Bolden Transplant Date: 09/16/15 [place] organ UNOS diagnosis: Transplant: Mr. Cody Bolden is a White Not nor 65 y.o. male who is Status Post Kidney transplantation on 09/16/15. Patient was seen by Nutrition services in Transplant outpatientclinic on 05/13/2016 for follow up due to feelings of poor appetite and his concerns that he has lost weight. Wt Readings from Last 3 Encounters: 05/13/16 95.3 kg (210 lb) 05/13/16 95.3 kg (210 lb 3.2 oz) 04/25/16 97.2 kg (214 lb 4.6 oz) Today's vital signs: BP 150/70 (BP Location (NBP): Right arm) Pulse 66 Temp 37.5 ??C (99.5 ??F) (Oral) Resp 16 Ht 177.8 cm (5' 10) Wt 95.3 kg (210 lb) SpO2 95% BMI 30.13 kg/m2 Estimated body mass index is 30.13 kg/(m^2) as calculated from the following: Height as of this encounter: 177.8 cm (5' 10). Weight as of this encounter: 95.3 kg (210 lb). Weight pre-Txp: 100.7 Kg (222 lbs); patient dipped to 200# at the end of December 2015; on 02/12/2016 he was back up to 210# then 216# on 02/25, lingering around 215# for a couple of months, and today at 210#. IBW: 82.7kg, however patient states that his lowest weight where he felt good is 95.3kg Lab Results Component Value Date HGB 14.2 05/14/2016 HCT 41.1 05/14/2016 NA 139 05/14/2016 K 3.3 (L) 05/14/2016 BUN 12 05/14/2016 CREATININE 1.22 05/14/2016 GLUCOSE 165 05/14/2016 CALCIUM 8.8 05/14/2016 MAGNESIUM 0.60 (L) 05/14/2016 PHOS 2.1 (L) 05/14/2016 ALBUMIN 4.0 05/13/2016 Cholesterol (in eD-H the component name CHLPL=Cholesterol) Lab Results Component Value Date CHLPL 134 05/13/2016 Assessment: This food writer saw patient in clinic yesterday. He was not feeling well. He has decreased appetite, diarrhea 1-2 times per day, and about 5# weight loss according to our records. Side effects of daptomycin are decreased appetite, nausea sometimes accompanied by vomiting, constipation or diarrhea. He is scheduled for ureter reconstruction on Thursday05/20/16. He is on a regular diet her as inpatient; hydration status more appropriate. Plan: This food writer provided patient with a booklet Tips for Better Food Intake to offer tips for loss ofappetite and help to lessen diarrhea, as well as ideas for healthy snacks. This food writer will follow patient's labs and weight while here as inpatient, with nutrition interventions as warranted. * Marcio Haynes MD - 05/14/2016 10:06 AM EST General Surgery Resident Inpatient Progress Note ID: Cody Bolden is a 65 y.o. 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 Hospital Day: 1 24hr/S: ?? Feels about the same, temp to 100C overnight ?? No acute events, denies n/v/sob O: Last value Range last 24hrs Temperature Temp: 37.5 ??C (99.5 ??F) Temp: [36.7 ??C (98 ??F)-37.8 ??C (100 ??F)] Heart Rate Heart Rate: 66 Heart Rate: [59-120] Blood Pressure BP: 176/84 BP: (111-182)/(53-88) Respiratory Rate Resp: 20 Resp: [16-27] SpO2 SpO2: 92 % SpO2: [89 %-97 %] 05/13 701 - 05/14 700 In: 1958 [P.O.:1040; I.V.:918] Out: 2600 [Urine:2600] Physical Exam: General: NAD, resting comfortably, pleasant, conversant HEENT: PERRL, anicteric sclerae CVS: RRR Pulm: comfortable on RA Abd: soft, nontender, non-distended : LLQ nephrostomy to gravity with dark yellow urine Ext: wwp Neuro: nonfocal,moving all four extremities spontaneously Recent Labs 05/14/16 0645 05/13/16 1000 WBC 9.4 11.9* HGB 14.2 15.7 HCT 41.1 44.1 PLATELET 208 267 Recent Labs 05/14/16 0645 05/13/16 1000 NA 139 136 K 3.3* 3.9 CL 100 96* CO2 25 24 BUN 12 15 CREATININE 1.22 1.39 GLUCOSE 165 174 CALCIUM 8.8 9.5 MAGNESIUM 0.60* 0.57* PHOS 2.1* 2.7 ASSESSMENT: Cody Bolden is a 65 y.o. male on moth exterminator IV abx for coag neg staph bacteremia who presents with dehydration, fatigue. Labs normalizing this morning. Blood cultures pending. Urine cx with GNRs, indicating new organism colonizing urinary tract. Will add zosyn today and consult ID. PLAN: Dehydration - Continue NS @ 100/hr - Replete lytes UTI, previous staph bacteremia - Continue vancomycin 1.25g BID, follow up trough level - Add zosyn for GNR coverage - ID consult - Contact precautions until c.diff screen back Immunosuppression - Prograf 1mg bid - Cellcept 250mg bid - Valcyte 450mg bid Other - Regular diet - Home meds Dispo: Floor, full code Marcio Haynes MD Transplant [id number] Associated attestation - Que Amaro MD - 05/14/2016 4:50 PM EST I have seen the patient and reviewed the resident's above history and I agree with the details as written. The assessment and plan were formulated in discussion with me and I agree with them as documented. Mr. Bolden had a GNR grow from the urine and we expanded his antibiotic coverage to include Zosynin addition to vancomycin. No rigors, no fevers, but he hasn't had significant improvement since yesterday. Still feels very fatigued and lacks energy. No pain over graft site. Renal allograft function remains stable and his nephrostomy tube remains externalized. I reviewed and adjusted his immunosuppression as follows: Prograf /, trough level was therapeutic yesterday in clinic. No adjustments were indicated Cellcept 250 mg po bid, no adjustments Will discuss his admission with Dr. Arredondo since we had planned to reconstruct his urologic tract next week. Await blood culture results. Continue IV abx. documented in this encounter H&P Notes * Pako Booth - 05/20/2016 2:44 PM EST Mr. 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 Patient alert and oriented to person place time and situation, Respirations even and unlabored, Skin pink warm and dry. * Kitty Marie MD - 05/13/2016 5:56 PM EST Emergency Department Cody Bolden is a 65 y.o. male who presents to [facility] with fever. History of Present Illness / Review of Systems The patient is resting comfortably in the bed Physical Exam: I reviewed the patient???s vitals as recorded in the electronic medical record and ED nursing notes. The patient was non-toxic appearing and in no obvious distress. Assessment/Plan: This 65 y.o. male was transferred from an outside hospital emergency department to receive specialty care provided by the transplant service for fever. I discussed the case with resident/fellow of the accepting service. The patient was deemed to be stable and not requiring significant involvement from the attending emergency physician at this time. The accepting service has assumed further care of the patient. Please see their notes for any further clinical details. Kitty Marie MD 05/13/16 2584 * Paul Bani RN - 05/13/2016 5:33 PM EST Pt's leg bag switched to gravity bag for Pt's comfort. Per his request * Paul Bain RN - 05/13/2016 4:[address] Mix at the bed side * Martina Mix MD - 05/13/2016 4:34 PM EST Emergency Department Cody Bolden is a 65 y.o. 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 History of Present Illness / Review of Systems Patient received a kidney transplant in September 2015. Due to a stricture in his ureter, he has had multiple dilation failures and a percutaneous nephrostomy- ureteral tube placement and now requires surgery this coming Thursday. He was recently admitted for fever and blood cultures were positive for coagulase negative staphylococcus. He was discharged on daptomycin which he is currently on. Since his discharge he was been fatigued with a low-grade temperature of 100.1. He was seen in transplant clinic today who was concerned about his hypotension and dark urine. They recommended admission for rehydration and to screen for a blood stream infection. Denies nausea, vomiting, lightheadedness, cough, SOB, chest pain, or abdominal pain. The patient is resting comfortably in the bed. Physical Exam: I reviewed the patient???s vitals as recorded in the electronic medical record and ED nursing notes. The patient was non-toxic appearing and in no obvious distress. Assessment/Plan: This 65 y.o. male was transferred from an outside hospital emergency department to receive specialty care provided by the Transplant service for hypotension/fever. I discussed the case with resident/fellow of the accepting service. The patient was deemed to be stable and not requiring significant in volvement from the attending emergency physician at this time. The accepting service has assumed further care of the patient. Please see their notes for any further clinical details. Martina Mix MD Resident 05/13/16 1801 documented in this encounter Miscellaneous Notes * Plan of Care - Cami Leonardo RN - 05/28/2016 5:11 AM EST Problem: Patient Care Overview Goal: Plan of Care Review Outcome: Ongoing (Interventions Implemented as Appropriate) 05/26/16 1519 05/27/16 2146 Coping/Psychosocial Plan Of Care Reviewed With -- patient Plan of Care Review Progress no change -- OUTCOME EVALUATION NOTE: OUTCOME SUMMARY: Patient had a good night. Slept throughout most of the night. Patient stated that he is trying to wean off the oxycodone. Requested 10mg of oxycodone twice throughout the night. Blood pressure was elevated all night. The 1999 and BP's were in the 170's SBP, MD notified and stated he would treat if his SBP >180. Around 0400, SBP was in the 190's, gave 10 mg hydralazine. BP still elevated at 186/95, MD notified. Whaley draining adequately. Nephrostomy tube clamped. Patient up walking around independently. PLAN MOVING FORWARD: Continue to monitor. INDIVIDUALIZED FALL PREVENTION INTERVENTIONS: Patient-specific fall risk factors per assessment: [current deficits]: independent Assistance [level of assistance required for transfers and ambulation]: independent Supervision [direct monitoring required during toileting and ADLs]: independent Surveillance [continuous indirect monitoring]: Masimo, hourly rounding Patient-specific fall prevention interventions for sensory deficits provided, if applicable: [X] N/A CPG GOAL OUTCOME EVALUATION: Goal: Individualization & Mutuality Outcome: Ongoing (Interventions Implemented as Appropriate) 05/17/16 1732 05/19/16 1505 05/22/16 0335 Individualization Patient Specific Preferences would like a hair cut before surgery if possible -- -- Patient Specific Goals -- -- -- Patient Specific Interventions -- -- -- Mutuality/Individual Preferences What Anxieties, Fears or Concerns Do You Have About Your Health or Care? -- -- none What Questions Do You Have About Your Health or Care? -- -- none What Information Would Help Us Give You More Personalized Care? -- You can call me [facility] -- 05/24/16 1542 05/25/16 1449 Individualization Patient Specific Preferences -- -- Patient Specific Goals possible discharge tomorrow -- Patient Specific Interventions -- whaley teaching Mutuality/Individual Preferences What Anxieties, Fears or Concerns Do You Have About Your Health or Care? -- -- What Questions Do You Have About Your Health or Care? -- -- What Information Would Help Us Give You More Personalized Care? -- -- Goal: Fall Prevention-Safe Patient Handling Outcome: Ongoing (Interventions Implemented as Appropriate) 05/17/16 1732 05/26/16 1100 05/27/16 1118 Restraint Interventions Safety Promotion/Fall Prevention -- -- -- Musculoskeletal Interventions Muscle Strengthening activity/mobility promoted;mobility in bed promoted;personal routines for BADL/IADL promoted -- -- Activity and Safety Assistive Device -- None -- Daily Care Interventions Self-Care Promotion -- -- independence encouraged Stephens Fall Risk History of Falling -- -- -- Secondary Diagnosis -- -- -- Ambulatory Aids -- -- -- Intravenous Therapy/Heparin/Saline Lock -- -- -- Gait/Transferring -- -- -- Mental Status -- -- -- Score -- -- -- OTHER Stephens Fall Risk -- -- -- Positioning Body Position -- -- -- 05/27/162145 Restraint Interventions Safety Promotion/Fall Prevention fall prevention program maintained Musculoskeletal Interventions Muscle Strengthening -- Activity and Safety Assistive Device -- Daily Care Interventions Self-Care Promotion -- Stephens Fall Risk History of Falling 0 Secondary Diagnosis 15 Ambulatory Aids 0 Intravenous Therapy/Heparin/Saline Lock 20 Gait/Transferring 0 Mental Status 0 Score 35 OTHER Stephens Fall Risk Med Positioning Body Position independent Goal: Infection Control Outcome: Ongoing (Interventions Implemented as Appropriate) 05/27/162145 Safety Interventions Isolation Precautions standard precautions maintained Infection Prevention environmental surveillance performed Coping Strategies Supportive Measures active listening utilized Goal: Discharge Needs Assessment Outcome: Ongoing (Interventions Implemented as Appropriate) 05/14/16 1900 05/15/16 1632 05/21/16 0130 Discharge Needs Assessment Concerns To Be Addressed -- -- -- Readmission Within The Last 30 Days previous discharge plan unsuccessful -- -- Equipment Needed After Discharge -- -- -- Discharge Facility/Level Of Care Needs -- -- -- Current Discharge Risk chronically ill -- -- Discharge Disposition -- -- home healthcare service Current Health Anticipated Changes Related to Illness -- none -- Activity/Self Care Review of Systems Equipment Currently Used at Home medication pump -- -- Living Environment Transportation Available car;family or friend will provide -- -- 05/22/16 1156 05/25/16 1512 Discharge Needs Assessment Concerns To Be Addressed -- no discharge needs identified Readmission Within The Last 30 Days -- -- Equipment Needed After Discharge none -- Discharge Facility/Level Of Care Needs other (see comments) (home) -- Current Discharge Risk -- -- Discharge Disposition -- -- Current Health Anticipated Changes Related to Illness -- -- Activity/Self Care Review of Systems Equipment Currently Used at Home -- -- Living Environment Transportation Available -- -- Goal: Interdisciplinary Rounds/Family Conf Outcome: Ongoing (Interventions Implemented as Appropriate) 05/25/16 0044 Interdisciplinary Rounds/Family Conf Participants nursing;patient Problem: Health Knowledge, Opportunity to Enhance (Adult,NICU,,Obstetrics,Pediatric) Intervention: Enhance Health Knowledge 05/27/16 2146 Coping Strategies Supportive Measures active listening utilized Family/Support System Care involvement promoted Goal: Knowledgeable about Health Subject/Topic Patient will demonstrate the desired outcomes by discharge/transition of care. Outcome: Ongoing (Interventions Implemented as Appropriate) 05/27/16 1542 Health Knowledge, Opportunity to Enhance (Adult,NICU,Lynx,Obstetrics,Pediatric) Knowledgeable about Health Subject/Topic making progress toward outcome * Plan of Care - Monique Christian RN - 05/27/2016 3:48 PM EST Problem: Patient Care Overview Goal: Plan of Care Review Outcome: Ongoing (Interventions Implemented as Appropriate) 05/26/16 1519 05/27/16 1118 Coping/Psychosocial Plan Of Care Reviewed With -- patient Plan of Care Review Progress no change -- OUTCOME EVALUATION NOTE: OUTCOME SUMMARY: Yash has been doing ok throughout the day- BP's elevated mid am, scheduled metoprolol 25 mg po provided and 1 x IV hydralazine also given, hxtn resolved from this dose; ambulating independently aroundthe unit; potassium iv x 2 provided; pain controlled with prn oxy and scheduled tylenol; whaley remains in place; neph tube site cdi; midline pelon with dermabond, no noted redness or drainage; diet advanced and tolerated with no noted nausea; hiccups have continued throughout the day, pt states they have been this way since the surgery, MD and team aware; will continue to monitor PLAN MOVING FORWARD: Pain control; continued diet tolerance; continued activity; monitor labs; discharge to home tomorrow INDIVIDUALIZED FALL PREVENTION INTERVENTIONS: Patient-specific fall risk factors per assessment: [current deficits]: Pain; tubing; drain Assistance [level of assistance required for transfers and ambulation]: Independent Supervision [direct monitoring required during toileting and ADLs]: Independent r Surveillance [continuous indirect monitoring]: Purposeful hourly rounding; room near unit station; [facility] Patient-specific fall prevention interventions for sensory deficits provided, if applicable: [X] Yeslighting adjusted to task safety CPG GOAL OUTCOME EVALUATION: Goal: Individualization & Mutuality Outcome: Ongoing (Interventions Implemented as Appropriate) 05/17/16 1732 05/19/16 1505 05/22/16 0335 Individualization Patient Specific Preferences would like a hair cut before surgery if possible -- -- Patient Specific Goals -- -- -- Patient Specific Interventions -- -- -- Mutuality/Individual Preferences What Anxieties, Fears or Concerns Do You Have About Your Health or Care? -- -- none What Questions Do You Have About Your Health or Care? -- -- none What Information Would Help Us Give You More Personalized Care? -- You can call me [facility] -- 05/24/16 1542 05/25/16 1449 Individualization Patient Specific Preferences -- -- Patient Specific Goals possible discharge tomorrow -- Patient Specific Interventions -- luisa teaching Mutuality/Individual Preferences What Anxieties, Fears or Concerns Do You Have About Your Health or Care? -- -- What Questions Do You Have About Your Health or Care? -- -- What Information Would Help Us Give You More Personalized Care? -- -- Goal: Fall Prevention-Safe Patient Handling Outcome: Ongoing (Interventions Implemented as Appropriate) 05/17/16 1732 05/26/16 1100 05/27/16 1117 Restraint Interventions Safety Promotion/Fall Prevention -- -- -- Musculoskeletal Interventions Muscle Strengthening activity/mobility promoted;mobility in bed promoted;personal routines for BADL/IADL promoted -- -- Activity and Safety Assistive Device -- None -- Daily Care Interventions Self-Care Promotion -- -- -- Stephens Fall Risk History of Falling -- -- 0 Secondary Diagnosis -- -- 15 Ambulatory Aids -- -- 0 Intravenous Therapy/Heparin/Saline Lock -- -- 20 Gait/Transferring -- -- 0 Mental Status -- -- 0 Score -- -- 35 OTHER Stephens Fall Risk -- -- Med Positioning Body Position -- -- -- 05/27/16 1118 Restraint Interventions Safety Promotion/Fall Prevention fall prevention program maintained;nonskid shoes/slippers when outof bed;safety round/check completed Musculoskeletal Interventions Muscle Strengthening -- Activity and Safety Assistive Device -- Daily Care Interventions Self-Care Promotion independence encouraged Stephens Fall Risk History of Falling -- Secondary Diagnosis -- Ambulatory Aids -- Intravenous Therapy/Heparin/Saline Lock -- Gait/Transferring -- Mental Status -- Score -- OTHER Stephens Fall Risk -- Positioning Body Position independent Goal: Infection Control Outcome: Ongoing (Interventions Implemented as Appropriate) 05/27/16 1118 Safety Interventions Isolation Precautions standard precautions maintained Infection Prevention environmental surveillance performed;rest/sleep promoted Coping Strategies Supportive Measures active listening utilized;problem solving facilitated;relaxation techniques promoted;self-care encouraged Goal: Discharge Needs Assessment Outcome: Ongoing (Interventions Implemented as Appropriate) 05/14/16 1900 05/15/16 1632 05/21/16 0130 Discharge Needs Assessment Concerns To Be Addressed -- -- -- Readmission Within The Last 30 Days previous discharge plan unsuccessful -- -- Equipment Needed After Discharge -- -- -- Discharge Facility/Level Of Care Needs -- -- -- Current Discharge Risk chronically ill -- -- Discharge Disposition -- -- home healthcare service Current Health Anticipated Changes Related to Illness -- none -- Activity/Self Care Review of Systems Equipment Currently Used at Home medication pump -- -- Living Environment Transportation Available car;family or friend will provide -- -- 05/22/16 1156 05/25/16 1512 Discharge Needs Assessment Concerns To Be Addressed -- no discharge needs identified Readmission Within The Last 30 Days -- -- Equipment Needed After Discharge none -- Discharge Facility/Level Of Care Needs other (see comments) (home) -- Current Discharge Risk -- -- Discharge Disposition -- -- Current Health Anticipated Changes Related to Illness -- -- Activity/Self Care Review of Systems Equipment Currently Used at Home -- -- Living Environment Transportation Available -- -- Goal: Interdisciplinary Rounds/Family Conf Outcome: Ongoing (Interventions Implemented as Appropriate) 05/25/16 0044 Interdisciplinary Rounds/Family Conf Participants nursing;patient Problem: Health Knowledge, Opportunity to Enhance (Adult,NICU,,Obstetrics,Pediatric) Goal: Knowledgeable about Health Subject/Topic Patient will demonstrate the desired outcomes by discharge/transition of care. Outcome: Ongoing (Interventions Implemented as Appropriate) 05/27/16 1542 Health Knowledge, Opportunity to Enhance (Adult,NICU,Lynx,Obstetrics,Pediatric) Knowledgeable about Health Subject/Topic making progress toward outcome * Plan of Care - Cami Leonardo RN - 05/27/2016 4:31 AM EST Problem: Patient Care Overview Goal: Plan of Care Review Outcome: Ongoing (Interventions Implemented as Appropriate) 05/26/16 1519 05/26/16 2040 Coping/Psychosocial Plan Of Care Reviewed With -- patient Plan of Care Review Progress no change -- OUTCOME EVALUATION NOTE: OUTCOME SUMMARY: Patient had a good night. He had another small bowel movement. Abdomen is still sore and distended.Patient receiving 15mg for abdominal pain. Patient had hiccups throughout the night. Patient is tolerating IV fluids. Whaley draining adequate amounts of urine. PLAN MOVING FORWARD: Continue to monitor. INDIVIDUALIZED FALL PREVENTION INTERVENTIONS: Patient-specific fall risk factors per assessment: [current deficits]: independent Assistance [level of assistance required for transfers and ambulation]: independent Supervision [direct monitoring required during toileting and ADLs]: independent Surveillance [continuous indirect monitoring]: Masimo, hourly rounding Patient-specific fall prevention interventions for sensory deficits provided, if applicable: [X] N/A [facility] GOAL OUTCOME EVALUATION: Goal: Individualization & Mutuality Outcome: Ongoing (Interventions Implemented as Appropriate) 05/17/16 1732 05/19/16 1505 05/22/16 0335 Individualization Patient Specific Preferences would like a hair cut before surgery if possible -- -- Patient Specific Goals -- -- -- Patient Specific Interventions -- -- -- Mutuality/Individual Preferences What Anxieties, Fears or Concerns Do You Have About Your Health or Care? -- -- none What Questions Do You Have About Your Health or Care? -- -- none What Information Would Help Us Give You More Personalized Care? -- You can call me Yash -- 05/24/16 1542 05/25/16 1449 Individualization Patient Specific Preferences -- -- Patient Specific Goals possible discharge tomorrow -- Patient Specific Interventions -- whaley teaching Mutuality/Individual Preferences What Anxieties, Fears or Concerns Do You Have About Your Health or Care? -- -- What Questions Do You Have About Your Health or Care? -- -- What Information Would Help Us Give You More Personalized Care? -- -- Goal: Fall Prevention-Safe Patient Handling Outcome: Ongoing (Interventions Implemented as Appropriate) 05/17/16 1732 05/26/16 0800 05/26/16 1100 Restraint Interventions Safety Promotion/Fall Prevention -- -- -- Musculoskeletal Interventions Muscle Strengthening activity/mobility promoted;mobility in bed promoted;personal routines for BADL/IADL promoted -- -- Activity and Safety Assistive Device -- -- None Daily Care Interventions Self-Care Promotion -- independence encouraged;BADL personal objects within reach;safe use of adaptive equipment encouraged -- Stephens Fall Risk History of Falling -- -- -- Secondary Diagnosis -- -- -- Ambulatory Aids -- -- -- Intravenous Therapy/Heparin/Saline Lock -- -- -- Gait/Transferring -- -- -- Mental Status -- -- -- Score -- -- -- OTHER Stephens Fall Risk -- -- -- Positioning Body Position -- -- -- 05/26/162039 Restraint Interventions Safety Promotion/Fall Prevention fall prevention program maintained Musculoskeletal Interventions Muscle Strengthening -- Activity and Safety Assistive Device -- Daily Care Interventions Self-Care Promotion -- Stephens Fall Risk History of Falling 0 Secondary Diagnosis 15 Ambulatory Aids 0 Intravenous Therapy/Heparin/Saline Lock 20 Gait/Transferring 0 Mental Status 0 Score 35 OTHER Stephens Fall Risk Med Positioning Body Position independent Goal: Infection Control Outcome: Ongoing (Interventions Implemented as Appropriate) 05/26/162039 Safety Interventions Isolation Precautions standard precautions maintained Infection Prevention rest/sleep promoted Coping Strategies Supportive Measures active listening utilized Goal: Discharge Needs Assessment Outcome: Ongoing (Interventions Implemented as Appropriate) 05/14/16 1900 05/15/16 1632 05/21/16 0130 Discharge Needs Assessment Concerns To Be Addressed -- -- -- Readmission Within The Last 30 Days previous discharge plan unsuccessful -- -- Equipment Needed After Discharge -- -- -- Discharge Facility/Level Of Care Needs -- -- -- Current Discharge Risk chronically ill -- -- Discharge Disposition -- -- home healthcare service Current Health Anticipated Changes Related to Illness -- none -- Activity/Self Care Review of Systems Equipment Currently Used at Home medication pump -- -- Living Environment Transportation Available car;family or friend will provide -- -- 05/22/16 1156 05/25/16 1512 Discharge Needs Assessment Concerns To Be Addressed -- no discharge needs identified Readmission Within The Last 30 Days -- -- Equipment Needed After Discharge none -- Discharge Facility/Level Of Care Needs other (see comments) (home) -- Current Discharge Risk -- -- Discharge Disposition -- -- Current Health Anticipated Changes Related to Illness -- -- Activity/Self Care Review of Systems Equipment Currently Used at Home -- -- Living Environment Transportation Available -- -- Goal: Interdisciplinary Rounds/Family Conf Outcome: Ongoing (Interventions Implemented as Appropriate) 05/25/16 0044 Interdisciplinary Rounds/Family Conf Participants nursing;patient Problem: Health Knowledge, Opportunity to Enhance (Adult,NICU,[facility],Obstetrics,Pediatric) Intervention: Enhance Health Knowledge 05/26/16 204 Coping Strategies Supportive Measures active listening utilized Family/Support System Care involvement promoted Goal: Knowledgeable about Health Subject/Topic Patient will demonstrate the desired outcomes by discharge/transition of care. Outcome: Ongoing (Interventions Implemented as Appropriate) 05/26/16 0128 Health Knowledge, Opportunity to Enhance (Adult,NICU,[facility],Obstetrics,Pediatric) Knowledgeable about Health Subject/Topic making progress toward outcome * Plan of Care - Mirian Gambino RN - 05/26/2016 3:26 PM EST Problem: Patient Care Overview Goal: Plan of Care Review Outcome: Ongoing (Interventions Implemented as Appropriate) 05/26/16 0800 05/26/16 1519 Coping/Psychosocial Plan Of Care Reviewed With patient -- Plan of Care Review Progress -- no change OUTCOME EVALUATION NOTE: OUTCOME SUMMARY: Yash had a good day today. He has been up ambulating to and from the bathroom multiple times independently. His diet was changed to sips and chips and he is tolerating that well. He doesn't have an appetite and feels like his abdomen is very distended. He was given a suppository and lactulose to no effect. Blood cultures were drawn, a urine analysis was done, fluids were started, 3 K runs were given, 1 Mag run was given and he received a chest xray because of an increase in his WBCs. He has beenencouraged to ambulate more frequently, and use his incentive spirometer. His pain is well controlled, he denies any nausea. Will continue to monitor. PLAN MOVING FORWARD: Continue to encourage ambulation, encourage I.S., monitor pain. INDIVIDUALIZED FALL PREVENTION INTERVENTIONS: Patient-specific fall risk factors per assessment: [current deficits]: Whaley catheter, and IV pole,use of narcotics. Assistance [level of assistance required for transfers and ambulation]: independent Supervision [direct monitoring required during toileting and ADLs]: Eyes on Surveillance [continuous indirect monitoring]: Hourly rounding, call robles in reach Patient-specific fall prevention interventions for sensory deficits provided, if applicable: [X] Yes non skid socks when OOB, lighting adjusted to task, environmental modifications. CPG GOAL OUTCOME EVALUATION: * Plan of Care - Anastasiia Denney RN - 05/26/2016 1:34 AM EST Problem: Patient Care Overview Goal: Plan of Care Review Outcome: Ongoing (Interventions Implemented as Appropriate) 05/26/16 0128 Coping/Psychosocial Plan Of Care Reviewed With patient Plan of Care Review Progress improving OUTCOME EVALUATION NOTE: OUTCOME SUMMARY: Pt had had a ok night and able to sleep between care throughout shift. VSS. Pain well controlled with PRN oxycodone 15 mg every 4 hours( full dose given per pt request) overnight. Left old LEEANNA site with dressing C/D/I. Whaley cath to gravity draining adequate amounts. One time of small amount of bowel movement but no passing flatus per pt report overnight. Pt tolerated po fluid intake with no nausea and vomiting. Encourage pt to use heating pad on abdomen and ambulate. Will continue to monitor. PLAN MOVING FORWARD: Pain control. Encourage pulmonary hygiene and ambulation. INDIVIDUALIZED FALL PREVENTION INTERVENTIONS: Patient-specific fall risk factors per assessment: [current deficits]: Narcotics, pain with movement/ambulation. Assistance [level of assistance required for transfers and ambulation]: independent. Supervision [direct monitoring required during toileting and ADLs]: eyes on. Surveillance [continuous indirect monitoring]: purposeful rounding, masimo, call light in reach. Patient-specific fall prevention interventions for sensory deficits provided, if applicable: No. CPG GOAL OUTCOME EVALUATION: Goal: Fall Prevention-Safe Patient Handling Outcome: Ongoing (Interventions Implemented as Appropriate) 05/17/16 1732 05/23/16 0410 05/25/162042 Restraint Interventions Safety Promotion/Fall Prevention -- -- activity supervised;fall prevention program maintained;nonskid shoes/slippers when out of bed;safety round/check completed Musculoskeletal Interventions Muscle Strengthening activity/mobility promoted;mobility in bed promoted;personal routines for BADL/IADL promoted -- -- Activity and Safety Assistive Device -- None -- Daily Care Interventions Self-Care Promotion -- -- independence encouraged Stephens Fall Risk History of Falling -- -- 0 Secondary Diagnosis -- -- 15 Ambulatory Aids -- -- 0 Intravenous Therapy/Heparin/Saline Lock -- -- 20 Gait/Transferring -- -- 0 Mental Status -- -- 0 Score -- -- 35 OTHER Stephens Fall Risk -- -- Med Positioning Body Position -- -- independent Goal: Infection Control Outcome: Ongoing (Interventions Implemented as Appropriate) 05/25/162042 Safety Interventions Isolation Precautions standard precautions maintained Infection Prevention environmental surveillance performed;rest/sleep promoted;single patient room provided Coping Strategies Supportive Measures active listening utilized Goal: Interdisciplinary Rounds/Family Conf Outcome: Ongoing (Interventions Implemented as Appropriate) 05/25/16 0044 Interdisciplinary Rounds/Family Conf Participants nursing;patient * Plan of Care - Tamela Mak OT - 05/25/2016 3:15 PM EST Problem: Patient Care Overview Goal: Plan of Care Review Outcome: Ongoing (Interventions Implemented as Appropriate) 05/25/16 1512 Coping/Psychosocial Plan Of Care Reviewed With patient Occupational Therapy Evaluation Assessment: Pt has been seen by OT for evaluation, please refer to associated flowsheet data for details. 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 Pt with new abdominal incisional and whaley, waiting return of bladder function for discharge. Pt lives on one level at home, is home and available to assist as needed. Pt declined need for AE for LE ADLs. Pt independent with functional transfers and mobility after set up for IV pole and whaley. Anticipate that pt will return home with assistance of . Do not anticipate further OT needs. Precautions: immunosuppression, IV, whaley Pager: [phone] TAMELA MAK OT 05/25/2016 Occupational Therapy Rehabilitation Department Goal: Discharge Needs Assessment Outcome: Ongoing (Interventions Implemented as Appropriate) 05/25/16 1512 Discharge Needs Assessment Concerns To Be Addressed no discharge needs identified * Plan of Care - Yudelka Hinojosa RN - 05/25/2016 2:57 PM EST Problem: Patient Care Overview Goal: Plan of Care Review Outcome: Ongoing (Interventions Implemented as Appropriate) 05/25/16 1449 Coping/Psychosocial Plan Of Care Reviewed With patient Plan of Care Review Progress improving OUTCOME EVALUATION NOTE: OUTCOME SUMMARY: Yash was not able to go home today. He has not had a significant bowel movement, he went down for anxray this morning that showed distention. He has since had a small bowel movement. He was given IV lasix with good effect for concern of fluid overload due to hypertension and decreased oxygen saturation. He has received one dose of IV hydralazine 10 mg with good effect. He is currently resting in bed. PLAN MOVING FORWARD: Monitor intake and output, encourage ambulation, maintain pain control INDIVIDUALIZED FALL PREVENTION INTERVENTIONS: Patient-specific fall risk factors per assessment: [current deficits]: IV lines, drains, pain medications Assistance [level of assistance required for transfers and ambulation]: IV pole Supervision [direct monitoring required during toileting and ADLs]: Independent Surveillance [continuous indirect monitoring]: Purposeful rounding, call robles within reach Patient-specific fall prevention interventions for sensory deficits provided, if applicable: [X] Yes-glasses [facility] GOAL OUTCOME EVALUATION: Goal: Individualization & Mutuality Outcome: Ongoing (Interventions Implemented as Appropriate) 05/24/16 1542 05/25/16 1449 Individualization Patient Specific Goals possible discharge tomorrow -- Patient Specific Interventions -- whaley teaching Goal: Fall Prevention-Safe Patient Handling Outcome: Ongoing (Interventions Implemented as Appropriate) 05/17/16 1732 05/24/16 2020 05/25/16 1035 Restraint Interventions Safety Promotion/Fall Prevention -- -- fall prevention program maintained Musculoskeletal Interventions Muscle Strengthening activity/mobility promoted;mobility in bed promoted;personal routines for BADL/IADL promoted -- -- Daily Care Interventions Self-Care Promotion -- independence encouraged -- Positioning Body Position -- -- independent Goal: Infection Control Outcome: Ongoing (Interventions Implemented as Appropriate) 05/25/16 1035 Safety Interventions Isolation Precautions standard precautions maintained Infection Prevention environmental surveillance performed Coping Strategies Supportive Measures active listening utilized Goal: Discharge Needs Assessment Outcome: Ongoing (Interventions Implemented as Appropriate) 05/14/16 1900 05/24/16 1542 Discharge Needs Assessment Concerns To Be Addressed -- denies needs/concerns at this time Readmission Within The Last 30 Days previous discharge plan unsuccessful -- Current Discharge Risk chronically ill -- Living Environment Transportation Available car;family or friend will provide -- Goal: Interdisciplinary Rounds/Family Conf Outcome: Ongoing (Interventions Implemented as Appropriate) 05/25/16 0044 Interdisciplinary Rounds/Family Conf Participants nursing;patient * Plan of Care - Anastasiia Denney RN - 05/25/2016 12:50 AM EST Problem: Patient Care Overview Goal: Plan of Care Review Outcome: Ongoing (Interventions Implemented as Appropriate) 05/25/16 0044 Coping/Psychosocial Plan Of Care Reviewed With patient Plan of Care Review Progress improving OUTCOME EVALUATION NOTE: OUTCOME SUMMARY: Pt had had a ok night and able to sleep between care throughout shift. VSS. Pain well controlled with PRN oxycodone 15 mg every 4 hours( full dose given per pt request) overnight. LEEANNA site dressing changed x2 during shift. Whaley cath to gravity draining adequate amounts. No bowel movement and no passing flatus. Encourage pt to use heating pad on abdomen and ambulate. Will continue to monitor. @0551: paged personal banking representative MD Bonner for pt's elevated BP ( 184/83 @0424/ 180/81@5004). Pt c/o heartburnbut no chest pain. @0618: one time dose of Hydralazine 5 mg iv given. @0650: rechecked BP 177/79. PLAN MOVING FORWARD: Pain control. Change LEEANNA site dressing as needed. Encourage pulmonary hygiene and ambulation. INDIVIDUALIZED FALL PREVENTION INTERVENTIONS: Patient-specific fall risk factors per assessment: [current deficits]: narcotics. Pain with movement/abulation. Assistance [level of assistance required for transfers and ambulation]: independent. Supervision [direct monitoring required during toileting and ADLs]: eyes on. Surveillance [continuous indirect monitoring]: Purposeful rounding, masimo, call light in reach. Patient-specific fall prevention interventions for sensory deficits provided, if applicable: No. CPG GOAL OUTCOME EVALUATION: Goal: Fall Prevention-Safe Patient Handling Outcome: Ongoing (Interventions Implemented as Appropriate) 05/17/16 1732 05/23/16 0410 05/24/162019 Restraint Interventions Safety Promotion/Fall Prevention -- -- activity supervised;fall prevention program maintained;nonskid shoes/slippers when out of bed;safety round/check completed Musculoskeletal Interventions Muscle Strengthening activity/mobility promoted;mobility in bed promoted;personal routines for BADL/IADL promoted -- -- Activity and Safety Assistive Device -- None -- Daily Care Interventions Self-Care Promotion -- -- independence encouraged Stephens Fall Risk History of Falling -- -- 0 Secondary Diagnosis -- -- 15 Ambulatory Aids -- -- 0 Intravenous Therapy/Heparin/Saline Lock -- -- 20 Gait/Transferring -- -- 0 Mental Status -- -- 0 Score -- -- 35 OTHER Stephens Fall Risk -- -- Med Positioning Body Position -- -- independent Goal: Infection Control Outcome: Ongoing (Interventions Implemented as Appropriate) 05/24/162019 Safety Interventions Isolation Precautions standard precautions maintained Infection Prevention environmental surveillance performed;rest/sleep promoted;single patient room provided Coping Strategies Supportive Measures active listening utilized Goal: Interdisciplinary Rounds/Family Conf Outcome: Ongoing (Interventions Implemented as Appropriate) 05/25/1643 Interdisciplinary Rounds/Family Conf Participants nursing;patient Problem: Health Knowledge, Opportunity to Enhance (Adult,NICU,,Obstetrics,Pediatric) Goal: Knowledgeable about Health Subject/Topic Patient will demonstrate the desired outcomes by discharge/transition of care. Outcome: Ongoing (Interventions Implemented as Appropriate) 05/25/1643 Health Knowledge, Opportunity to Enhance (Adult,NICU,,Obstetrics,Pediatric) Knowledgeable about Health Subject/Topic making progress toward outcome * Plan of Care - Merle-Yudelka Chandler RN - 05/24/2016 3:48 PM EST Problem: Patient Care Overview Goal: Plan of Care Review Outcome: Ongoing (Interventions Implemented as Appropriate) 05/17/16 17305/24/16 1542 Coping/Psychosocial Plan Of Care Reviewed With -- patient Plan of Care Review Progress progress toward functional goals as expected -- OUTCOME EVALUATION NOTE: OUTCOME SUMMARY: Yash had significant pain this morning, he required as needed oxycodone, scheduled tylenol. He feelsbetter this afternoon. He has been up ambulating around the unit. Staff picked up prograf prescription for him for possible discharge tomorrow. Yash was able to have a small bowel movement this afternoon. He is currently resting in bed. PLAN MOVING FORWARD: Pain control, encourage ambulation, leeanna teaching INDIVIDUALIZED FALL PREVENTION INTERVENTIONS: Patient-specific fall risk factors per assessment: [current deficits]: IV lines, pain medications Assistance [level of assistance required for transfers and ambulation]: IV pole, independent Supervision [direct monitoring required during toileting and ADLs]: independent Surveillance [continuous indirect monitoring]: Purposeful rounding, call robles within reach, Patient-specific fall prevention interventions for sensory deficits provided, if applicable: [X] Yes-glasses CPG GOAL OUTCOME EVALUATION: Goal: Individualization & Mutuality Outcome: Ongoing (Interventions Implemented as Appropriate) 05/24/16 1542 Individualization Patient Specific Goals possible discharge tomorrow Patient Specific Interventions LEEANNA teaching Goal: Fall Prevention-Safe Patient Handling Outcome: Ongoing (Interventions Implemented as Appropriate) 05/17/16 17305/23/16 0829 05/24/16 0813 Restraint Interventions Safety Promotion/Fall Prevention -- -- fall prevention program maintained Musculoskeletal Interventions Muscle Strengthening activity/mobility promoted;mobility in bed promoted;personal routines for BADL/IADL promoted -- -- Daily Care Interventions Self-Care Promotion -- independence encouraged -- Positioning Body Position -- -- independent Goal: Infection Control Outcome: Ongoing (Interventions Implemented as Appropriate) 05/23/16 1955 05/24/16 0813 Safety Interventions Isolation Precautions -- standard precautions maintained Infection Prevention environmental surveillance performed;rest/sleep promoted;single patient room provided -- Coping Strategies Supportive Measures -- active listening utilized Goal: Discharge Needs Assessment Outcome: Ongoing (Interventions Implemented as Appropriate) 05/14/16 1900 05/15/16 1632 05/21/16 0130 Discharge Needs Assessment Concerns To Be Addressed -- -- -- Readmission Within The Last 30 Days previous discharge plan unsuccessful -- -- Current Discharge Risk chronically ill -- -- Discharge Disposition -- -- home healthcare service Current Health Anticipated Changes Related to Illness -- none -- Living Environment Transportation Available car;family or friend will provide -- -- 05/24/16 1542 Discharge Needs Assessment Concerns To Be Addressed denies needs/concerns at this time Readmission Within The Last 30 Days -- Current Discharge Risk -- Discharge Disposition -- Current Health Anticipated Changes Related to Illness -- Living Environment Transportation Available -- Problem: Health Knowledge, Opportunity to Enhance (Adult,NICU,,Obstetrics,Pediatric) Goal: Identify Related Risk Factors and Signs and Symptoms Related risk factors and signs and symptoms are identified upon initiation of Human Response Clinical Practice Guideline (CPG) Outcome: Outcome (s) achieved Date Met: 05/24/16 05/16/16 0412 Health Knowledge, Opportunity to Enhance Health Knowledge, Opportunity for Enhanced: Related Risk Factors reinforcement inadequate Signs and Symptoms (Health Knowledge Enhance) knowledge/skill deficiency Goal: Knowledgeable about Health Subject/Topic Patient will demonstrate the desired outcomes by discharge/transition of care. Outcome: Ongoing (Interventions Implemented as Appropriate) 05/24/161541 Health Knowledge, Opportunity to Enhance (Adult,NICU,[facility],Obstetrics,Pediatric) Knowledgeable about Health Subject/Topic making progress toward outcome * Plan of Care - Anastasiia Denney RN - 05/24/2016 2:43 AM EST Problem: Patient Care Overview Goal: Individualization & Mutuality Outcome: Ongoing (Interventions Implemented as Appropriate) OUTCOME EVALUATION NOTE: OUTCOME SUMMARY: Pt has had a ok night and able to sleep between care throughout shift. Pain well controlled with PRN oxycodone 5-15 mg every 4 hours and PRN Dilaudid 0.2mg iv x1. Whaley cath to gravity draining adequate amounts. Right LEEANNA site dressing changed. Left Nephro tube clamped. Encourage pt to use heating pad and ambulate for gas discomfort. Will continue to monitor. PLAN MOVING FORWARD: Pain control. Encourage ambulation and pulmonary hygiene. Awaiting bowel function return. INDIVIDUALIZED FALL PREVENTION INTERVENTIONS: Patient-specific fall risk factors per assessment: [current deficits]: Narcotics, IVF infusion, pain with movement. Assistance [level of assistance required for transfers and ambulation]: independent. Supervision [direct monitoring required during toileting and ADLs]: eyes on. Surveillance [continuous indirect monitoring]: purposeful rounding, masimo, call light in reach. Patient-specific fall prevention interventions for sensory deficits provided, if applicable: Yes, light adjusted for tasks/safety. CPG GOAL OUTCOME EVALUATION: Goal: Fall Prevention-Safe Patient Handling Outcome: Ongoing (Interventions Implemented as Appropriate) 05/17/16 1732 05/23/16 0410 05/23/16 0829 Restraint Interventions Safety Promotion/Fall Prevention -- -- -- Musculoskeletal Interventions Muscle Strengthening activity/mobility promoted;mobility in bed promoted;personal routines for BADL/IADL promoted -- -- Activity and Safety Assistive Device -- None -- Daily Care Interventions Self-Care Promotion -- -- independence encouraged Stephens Fall Risk History of Falling -- -- -- Secondary Diagnosis -- -- -- Ambulatory Aids -- -- -- Intravenous Therapy/Heparin/Saline Lock -- -- -- Gait/Transferring -- -- -- Mental Status -- -- -- Score -- -- -- OTHER Stephens Fall Risk -- -- -- Positioning Body Position -- -- -- 05/23/161954 Restraint Interventions Safety Promotion/Fall Prevention activity supervised;fall prevention program maintained;nonskid shoes/slippers when out of bed;safety round/check completed;toileting scheduled Musculoskeletal Interventions Muscle Strengthening -- Activity and Safety Assistive Device -- Daily Care Interventions Self-Care Promotion -- Stephens Fall Risk History of Falling 0 Secondary Diagnosis 15 Ambulatory Aids 0 Intravenous Therapy/Heparin/Saline Lock 20 Gait/Transferring 0 Mental Status 0 Score 35 OTHER Stephens Fall Risk Med Positioning Body Position independent Goal: Infection Control Outcome: Ongoing (Interventions Implemented as Appropriate) 05/23/161954 Safety Interventions Isolation Precautions standard precautions maintained Infection Prevention environmental surveillance performed;rest/sleep promoted;single patient room provided Coping Strategies Supportive Measures active listening utilized Goal: Discharge Needs Assessment Outcome: Ongoing (Interventions Implemented as Appropriate) 05/14/16 1900 05/15/16 1632 05/21/16 0130 Discharge Needs Assessment Concerns To Be Addressed -- -- no discharge needs identified Readmission Within The Last 30 Days previous discharge plan unsuccessful -- -- Equipment Needed After Discharge -- -- -- Discharge Facility/Level Of Care Needs -- -- -- Current Discharge Risk chronically ill -- -- Discharge Disposition -- -- home healthcare service Current Health Anticipated Changes Related to Illness -- none -- Activity/Self Care Review of Systems Equipment Currently Used at Home medication pump -- -- Living Environment Transportation Available car;family or friend will provide -- -- 05/22/16 1156 Discharge Needs Assessment Concerns To Be Addressed -- Readmission Within The Last 30 Days -- Equipment Needed After Discharge none Discharge Facility/Level Of Care Needs other (see comments) (home) Current Discharge Risk -- Discharge Disposition -- Current Health Anticipated Changes Related to Illness -- Activity/Self Care Review of Systems Equipment Currently Used at Home -- Living Environment Transportation Available -- Goal: Interdisciplinary Rounds/Family Conf Outcome: Ongoing (Interventions Implemented as Appropriate) 05/24/16 0202 Interdisciplinary Rounds/Family Conf Participants patient;nursing * Plan of Care - Pauline Miles RN - 05/23/2016 4:29 AM EST Problem: Patient Care Overview Goal: Individualization & Mutuality Outcome: Ongoing (Interventions Implemented as Appropriate) 05/19/16 1505 05/22/16 0335 Mutuality/Individual Preferences What Anxieties, Fears or Concerns Do You Have About Your Health or Care? -- none What Questions Do You Have About Your Health or Care? -- none What Information Would Help Us Give You More Personalized Care? You can call me Yash -- OUTCOME EVALUATION NOTE: OUTCOME SUMMARY: Yash had a good night. Pain controlled with Fentanyl epidural and use of PCEA. Did not give Metop [id number], due to HR <55. Still unable to pass flatus, heating pad applied to abdomen. Nephrostomy still clamped. One dose of nubain given for itching. Forearm IV painful with flush this morning, paged VAS. VAS RN at bedside placing new PIV (0640). Hold 05/23 heparin dose pending epidural removal. PLAN MOVING FORWARD: Pain control, monitor I&O INDIVIDUALIZED FALL PREVENTION INTERVENTIONS: Patient-specific fall risk factors per assessment: [current deficits]: Epidural in place Assistance [level of assistance required for transfers and ambulation]: independent Supervision [direct monitoring required during toileting and ADLs]: Minimal assist with ADLs Surveillance [continuous indirect monitoring]: Purposeful rounding, call robles within reach Patient-specific fall prevention interventions for sensory deficits provided, if applicable: [X] Yes glasses on, lighting adjusted for tasks [facility] GOAL OUTCOME EVALUATION: Goal: Fall Prevention-Safe Patient Handling Outcome: Ongoing (Interventions Implemented as Appropriate) 05/17/16 1732 05/22/16 0900 05/22/161999 Restraint Interventions Safety Promotion/Fall Prevention -- -- fall prevention program maintained;nonskid shoes/slippers when out of bed;safety round/check completed Musculoskeletal Interventions Muscle Strengthening activity/mobility promoted;mobility in bed promoted;personal routines for BADL/IADL promoted -- -- Activity and Safety Assistive Device -- -- -- Daily Care Interventions Self-Care Promotion -- independence encouraged -- Stephens Fall Risk History of Falling -- -- 0 Secondary Diagnosis -- -- 15 Ambulatory Aids -- -- 0 Intravenous Therapy/Heparin/Saline Lock -- -- 20 Gait/Transferring -- -- 0 Mental Status -- -- 0 Score -- -- 35 OTHER Stephesn Fall Risk -- -- Med Positioning Body Position -- -- independent 05/23/16 0410 Restraint Interventions Safety Promotion/Fall Prevention -- Musculoskeletal Interventions Muscle Strengthening -- Activity and Safety Assistive Device None Daily Care Interventions Self-Care Promotion -- Stephens Fall Risk History of Falling -- Secondary Diagnosis -- Ambulatory Aids -- Intravenous Therapy/Heparin/Saline Lock -- Gait/Transferring -- Mental Status -- Score -- OTHER Stephens Fall Risk -- Positioning Body Position -- Goal: Infection Control Outcome: Ongoing (Interventions Implemented as Appropriate) 05/22/161999 Safety Interventions Isolation Precautions standard precautions maintained Infection Prevention rest/sleep promoted Coping Strategies Supportive Measures active listening utilized;goal setting facilitated;self-care encouraged Goal: Discharge Needs Assessment Outcome: Ongoing (Interventions Implemented as Appropriate) 05/14/16 1900 05/15/16 1632 05/21/16 0130 Discharge Needs Assessment Concerns To Be Addressed -- -- no discharge needs identified Readmission Within The Last 30 Days previous discharge plan unsuccessful -- -- Equipment Needed After Discharge -- -- -- Discharge Facility/Level Of Care Needs -- -- -- Current Discharge Risk chronically ill -- -- Discharge Disposition -- -- home healthcare service Current Health Anticipated Changes Related to Illness -- none -- Activity/Self Care Review of Systems Equipment Currently Used at Home medication pump -- -- Living Environment Transportation Available car;family or friend will provide -- -- 05/22/16 1156 Discharge Needs Assessment Concerns To Be Addressed -- Readmission Within The Last 30 Days -- Equipment Needed After Discharge none Discharge Facility/Level Of Care Needs other (see comments) (home) Current Discharge Risk -- Discharge Disposition -- Current Health Anticipated Changes Related to Illness -- Activity/Self Care Review of Systems Equipment Currently Used at Home -- Living Environment Transportation Available -- * Plan of Care - Sandra Acosta, PT - 05/22/2016 9:53 AM EST Problem: Patient Care Overview Goal: Plan of Care Review Outcome: Outcome (s) achieved Date Met: 05/22/16 05/22/16 0953 Coping/Psychosocial Plan Of Care Reviewed With patient Staff communication/Mobility Recommendations: ?? Pt. to ambulate independently 4x per day w/ 1x assist to manage IV pole Physical Therapy Assessment: Patient presents to physical therapy with no apparent functional impairments in regards to mobility. He was eager to participate in PT evaluation and was highly motivated to walk beyond the unit. Patient was independent in all functionally mobility, however needed initial cueing to inform him that he did not have to hold onto and push his IV pole while walking. He enjoyed not having to push the pole around, and stated that walking was easier without the pole. Patient was able to walk beyond theunit, maintaining his gait pattern and balance throughout distractions and change of directions. Patient reported no discomfort or pain throughout session, but indicated that sitting and standing up were more difficult due to incision. Patient was educated regarding body mechanics and proper technique for bed mobility and rolling in regards to avoiding stressing his surgical site. Due to high patient motivation, as well as prior functional level and current level of independence, it is recommended that patient be discharged from PT with anticipation of returning home once deemed medically appropriate by the care team. Please see doc flow sheet for further information as needed. Melissa Stone, [facility] P.[id number] Goal: Discharge Needs Assessment Outcome: Ongoing (Interventions Implemented as Appropriate) 05/22/16 1156 Discharge Needs Assessment Equipment Needed After Discharge none Discharge Facility/Level Of Care Needs other (see comments) (home) Problem: Acute Rehab Services Goal & Intervention Plan Goal: Gait Training Goal Stand Alone Therapy Goal Outcome: Outcome (s) achieved Date Met: 05/22/16 05/22/16 0953 Gait Training Goal Gait Training Goal, Time to Achieve 1 day Gait Training Goal, [place]ip[place] Level independent Gait Training Goal, Distance to Achieve >150' Gait Training Goal, Outcome goal met Goal: Physical Therapy Goal Stand Alone Therapy Goal Outcome: Outcome (s) achieved Date Met: 05/22/16 05/22/16 0953 Physical Therapy Goal PT Goal, Time to Achieve 1 day PT Goal, [place] Level independent PT Goal, Additional Goal Pt able perform safe bed mobility according to surgical precautions PT Goal, Outcome goal met Patient status, treatment interventions, and goals discussed with student. I am in agreement with all details and associated flowsheet rows as documented and was present for all aspects of the patient treatment session. Sandra Acosta, PT, DPT P. [id number] * Plan of Care - Pauline Miles RN - 05/22/2016 3:38 AM EST Problem: Patient Care Overview Goal: Plan of Care Review Outcome: Ongoing (Interventions Implemented as Appropriate) 05/17/16 1732 05/21/16 1959 Coping/Psychosocial Plan Of Care Reviewed With -- patient Plan of Care Review Progress progress toward functional goals as expected -- OUTCOME EVALUATION NOTE: OUTCOME SUMMARY: Yash had a good night. Pain controlled with Fentanyl epidural with use of PCEA as well as one prn oxycodone dose (5mg). Ambulated multiple times around unit independently. LEEANNA dressing changed x1 for serosang drainage. Held metop doses overnight due to bradycardia. PLAN MOVING FORWARD: Continue ambulation, pain control INDIVIDUALIZED FALL PREVENTION INTERVENTIONS: Patient-specific fall risk factors per assessment: [current deficits]: epidural Assistance [level of assistance required for transfers and ambulation]: Independent Supervision [direct monitoring required during toileting and ADLs]: Minimal assist with ADLs Surveillance [continuous indirect monitoring]: Purposeful rounding, call robles within reach Patient-specific fall prevention interventions for sensory deficits provided, if applicable: [X] Yes glasses on, lighting adjusted for tasks C[facility] GOAL OUTCOME EVALUATION: Goal: Individualization & Mutuality Outcome: Ongoing (Interventions Implemented as Appropriate) 05/19/16 1505 05/22/16 0335 Mutuality/Individual Preferences What Anxieties, Fears or Concerns Do You Have About Your Health or Care? -- none What Questions Do You Have About Your Health or Care? -- none What Information Would Help Us Give You More Personalized Care? You can call me Yash -- Goal: Fall Prevention-Safe Patient Handling Outcome: Ongoing (Interventions Implemented as Appropriate) 05/17/16 1732 05/21/16 0600 05/21/16 0900 Restraint Interventions Safety Promotion/Fall Prevention -- -- -- Musculoskeletal Interventions Muscle Strengthening activity/mobility promoted;mobility in bed promoted;personal routines for BADL/IADL promoted -- -- Activity and Safety Assistive Device -- Wheelchair -- Daily Care Interventions Self-Care Promotion -- -- independence encouraged Stephens Fall Risk History of Falling -- -- -- Secondary Diagnosis -- -- -- Ambulatory Aids -- -- -- Intravenous Therapy/Heparin/Saline Lock -- -- -- Gait/Transferring -- -- -- Mental Status -- -- -- Score -- -- -- OTHER Stephens Fall Risk -- -- -- Positioning Body Position -- -- -- 05/21/161958 Restraint Interventions Safety Promotion/Fall Prevention nonskid shoes/slippers when out of bed;safety round/check completed Musculoskeletal Interventions Muscle Strengthening -- Activity and Safety Assistive Device -- Daily Care Interventions Self-Care Promotion -- Stephens Fall Risk History of Falling 0 Secondary Diagnosis 15 Ambulatory Aids 0 Intravenous Therapy/Heparin/Saline Lock 20 Gait/Transferring 0 Mental Status 0 Score 35 OTHER Stephens Fall Risk Med Positioning Body Position independent Goal: Infection Control Outcome: Ongoing (Interventions Implemented as Appropriate) 05/21/161958 Safety Interventions Isolation Precautions standard precautions maintained Infection Prevention rest/sleep promoted Coping Strategies Supportive Measures active listening utilized;goal setting facilitated;self-care encouraged Goal: Discharge Needs Assessment Outcome: Ongoing (Interventions Implemented as Appropriate) 05/14/16 1900 05/15/16 1632 05/21/16 0130 Discharge Needs Assessment Concerns To Be Addressed -- -- no discharge needs identified Readmission Within The Last 30 Days previous discharge plan unsuccessful -- -- Equipment Needed After Discharge -- none -- Current Discharge Risk chronically ill -- -- Discharge Disposition -- -- home healthcare service Current Health Anticipated Changes Related to Illness -- none -- Activity/Self Care Review of Systems Equipment Currently Used at Home medication pump -- -- Living Environment Transportation Available car;family or friend will provide -- -- * Plan of Care - Keyana Moy RN - 05/21/2016 1:42 AM EST Problem: Patient Care Overview Goal: Plan of Care Review Outcome: Ongoing (Interventions Implemented as Appropriate) 05/17/16 1732 05/21/16 0000 Coping/Psychosocial Plan Of Care Reviewed With -- patient Plan of Care Review Progress progress toward functional goals as expected -- OUTCOME EVALUATION NOTE: OUTCOME SUMMARY: 0000-Transferred from PACU post ureteroneocystostomy, denies pain nor nausea. Reminded to use the PCEA. PLAN MOVING FORWARD: Pain control, up in the recliner chair in am, ambulate in the posey way in am. INDIVIDUALIZED FALL PREVENTION INTERVENTIONS: Patient-specific fall risk factors per assessment: [current deficits]: Narcotics, Epidural, needs assistance getting in and out of bed or chair, pain with movement/ ambulation. Assistance [level of assistance required for transfers and ambulation]: IV pole, Non-skid slippers,1 or 2 person assist Supervision [direct monitoring required during toileting and ADLs]: Hands on . Surveillance [continuous indirect monitoring]: Purposeful rounding; call light in reach, Family at bedside Patient-specific fall prevention interventions for sensory deficits provided, if applicable: Glasses, Lighting adjusted for safety. CPG GOAL OUTCOME EVALUATION: * Op Note - Pako Booth - 05/20/2016 10:31 PM EST Patient Name: Cody Bolden : [id number] MR#: [id number] ?? Case Date: 05/20/2016 ?? Surgeon: Surgeon(s) and Role: Panel 1: * Moy Arredondo MD - Primary * Pako Booth MD - Resident-Wringer Operator ?? Panel 2: * Que Amaro MD - Primary ?? Preoperative diagnosis: Transplanted ureter stricture ?? Postoperative diagnosis: Same ?? Procedure(s): Boari flap from bladder to proximal transplant ureter ? Anesthesia: Epidural, General ?? Findings: ?? 1-Graft ureter completely stuck in pelvis, dissected up until the renal pelvis. Boari flap performed and anastomosed to proximal graft ureter 2-[place] left ureter divided and dissected then ligated after observing it throughout the procedurewithout urine production ?? Complications: none ? Fluids: 3L crystalloid ?? Estimated Blood Loss: 100 mL ?? Drains: ?? 19 margret 6fr 12 cm JJ in transplant ureter 20 fr whaley Old nephrostomy tube ?? Disposition: awakened from anesthesia, extubated and taken to the recovery room in a stable condition, having suffered no apparent untoward event. ?? Condition: doing well without problems ?? (Please see the Surgical Encounter Summary for any Implant and Specimen details pertinent to this patient.) ?? Infection Bundle used? No INDICATION FOR PROCEDURE: Mr. Bolden is a very pleasant 65-year-old man status post renal transplant from September of this year. 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 He is currently admitted for a urinary tract infection. After a period of antibiotics, we are proceeding with reimplantation of his graft transplant. The patient was seen preoperatively, where he was consented. He was explained all of the risks and benefits of the procedure. He was explained that this procedure will likely include a Boari flap and could include an ilean ureter or an anastomosis between the graft ureter and the [place] ureter. The patient was then brought into the operating room, placed in the supine position. After general anesthesia was administered, he was flexed and his legs were slightly frog-legged. His belly was then clipped. He was prepped and draped in the usual sterile fashion and received IV antibiotics. Patient already had a nephrostomy tube to his graft and this was prepped and included in the field in order to gain access to it later. After a brief time out, we proceed with the surgery. We did a midline incision using a 10 knife extending from the symphysis pubis to the periumbilical area. This was carried down to the level of the rectus fascia using Bovie cautery, and then the rectus fascia was incised in order to gain access to the space of retzius and then the rest of fascia was incised under direct vision. The preperitoneal fat was cut using Metzenbaum and then the peritoneal cavity was entered and the urachus was dissected off the abdominal wall. It was clamped with a Gail clamp and then tied with a 0 silk stitch, which was used to manipulate the urachus throughout the procedure. The lateral attachments of the bladder were taken down using Bovie cautery in order to mobilize the bladder. Once this was done, the Bookwalter was placed in order to expose the abdominal cavity. The preceding part of the operation was done in the exact same fashion used to obtain access to the bladder during a cystectomy. We then wanted to mobilize the sigmoid in order to tuck it and obtain access to the left pelvis. The sigmoid was completely adhered to the peritoneum. We first proceeded by taking down adhesions of the sigmoid colon to the abdominal wall. These adhesions were taken down with a combination of Bovie cautery and sharp dissection, paying very careful attention not to injure the bowel. Once the sigmoid colon was mobilized, it was tucked away with the help of lap pads and malleable retractors. At this point we continued mobilization of the bladder, so the right-sided vas and obliterated umbilical ligament were divided sharply after being tied with 0 silk ties. Then we directed our attention to the left side. We attempted to identify the graft ureter, and this turned out to be very difficult as we could not palpate any stent in the structures. Then we started dividing these areas very carefully; however, again this was very challenging as there were a lot of adhesions and fibrotic reaction. At this point Dr. Amaro was called in order to help us identify the anatomy, and then we continued dissection along the left lateral wall of the bladder until we got to the [place] ureter, which was divided as it was mistaken for the graft ureter. However, once it was mobilized and dissected, it was obvious that this was not the graft ureter. So at this point we decided to inject methylene blue through the nephrostomy tube in order to aid us with identifying the graft ureter and then we saw blue dye coming out from a completely fibrotic and unidentifiable ureter that was completely adhered to the retroperitoneum. We dissected it with difficulty up to the level of the kidney pelvis and then once this was done, the posterior side of it was spatulated and we used a 3-0 Holding silk stitch in order to manipulate its distal part. We then did a flexible ureteroscopy in order to establish how much proximal length we still have to the level of pelvis. Ureteroscopy revealed that our spatulated end was around 2-3 cm from the graft pelvis and this was deemed sufficient to create a safe reconstruction with a wide open lumen. We then directed our attention to to create the boari flap. At this point, the bladder was filled with saline and using a marking pen, we marked the Boari flap while paying attention to make the base of the flap wide enough to ensure its viability, and then the flap was cut using Bovie cautery and then it was flipped in order to anastomose it to the proximal ureter. The length of the flap was sufficient to ensure a tension free anastomosis.The proximal part of theflap was attached to the proximal ureter using 2x 4-0 Vicryl stitches on each side of the anastomosis. Then the anastomosis was closed in a running fashion, and then the bladder defect was closed initially in a layer including the mucosa and muscle using a running 3-0 Vicryl. The bladder was then tested with 300 mL of water for leaks. There were 2 small leaks identified, and they were oversewn using figure of 8 stitches. Then a second layer was closed using a running 3-0 Vicryl. This layer consisted of the serosa and the muscularis layer. Of note, prior to closing the anastomosis, a 6-Pashto double-J stent with 12 cm of length was placed. The bladder was then irrigated with fluid to remove the clots. We then placed a 19-Margret in the right lower quadrant, irrigated the abdominal cavity thoroughly with saline and then the fascia was closed using 2 running #1 Prolene, one from the superior area and another one from the inferior area, and they joined in the midline. Then the subcutaneous layer was closed using interrupted 3-0 Vicryl sutures. The skin was closed using 4-0 Monocryl and then Dermabond was applied. Prior to the closure, all of the counts were correct. The patient was washed, extubated, and sent to the PACU in good condition. Dr. Arredondo was scrubbed and present for the whole procedure Associated attestation - Moy Arredondo MD - 05/22/2016 11:20 PM EST Attestation: Case Date: 05/20/2016 I performed the procedure with the assistance of the resident. I performed or directly supervised all critical aspects. Notes: Complex/hard/aida dissection of bladder/ureter from graft Graft ureter completely stuck in pelvis, dissected up into the renal pelvis. Flexible intraop ureteroscopy to confirm location Boari flap performed and anastomosed to proximal graft ureter. Tension free. Short JJ stent placed [place] left ureter divided and dissected then ligated after observing it throughout the procedure without urine production MOY ARREDONDO MD 05/22/2016 * Brief Op Note - Pako Booth - 05/20/2016 9:09 PM EST Brief Operative Note Patient Name: Cody Bolden : [id number] MR#: [id number] Case Date: 05/20/2016 Surgeon: Surgeon(s) and Role: Panel 1: * Moy Arredondo MD - Primary * Pako Booth MD - Resident-Wringer Operator Panel 2: * Que Amaro MD - Primary Preoperative diagnosis: Transplanted ureter stricture Postoperative diagnosis: Same Procedure(s): Boari flap from bladder to proximal transplant ureter Anesthesia: Epidural, General Findings: 1-Graft ureter completely stuck in pelvis, dissected up until the renal pelvis. Boari flap performed and anastomosed to proximal graft ureter 2-[place] left ureter divided and dissected then ligated after observing it throughout the procedurewithout urine production Complications: none Fluids: 3L crystalloid Estimated Blood Loss: 100 mL Drains: 19 margret 6fr 12 cm JJ in transplant ureter 20 fr whaley Old nephrostomy tube Disposition: awakened from anesthesia, extubated and taken to the recovery room in a stable condition, having suffered no apparent untoward event. Condition: doing well without problems (Please see the Surgical Encounter Summary for any Implant and Specimen details pertinent to this patient.) Infection Bundle used? No * Plan of Care - Bernarda Pedroza RN - 05/20/2016 2:04 PM EST Problem: Patient Care Overview Goal: Plan of Care Review Outcome: Ongoing (Interventions Implemented as Appropriate) 05/17/16 1732 05/20/16 0700 Coping/Psychosocial Plan Of Care Reviewed With -- patient Plan of Care Review Progress progress toward functional goals as expected -- OUTCOME EVALUATION NOTE: OUTCOME SUMMARY: Yash went to OR around 1220 today, NPO since midnight, nephrostomy emptied around noon for concentrated urine, pt was a little concerned, but IV fluids running. Pt independent in room/posey and walkingaround with his . Meds sent to OR holding with pt. Complained of slight headache this AM which was relieved by tylenol PLAN MOVING FORWARD: OR, monitor I+O INDIVIDUALIZED FALL PREVENTION INTERVENTIONS: Patient-specific fall risk factors per assessment: [current deficits]: lines Assistance [level of assistance required for transfers and ambulation]: independent Supervision [direct monitoring required during toileting and ADLs]: independent Surveillance [continuous indirect monitoring]: Purposeful rounding, call robles in reach Patient-specific fall prevention interventions for sensory deficits provided, if applicable: [X] Yes glasses CPG GOAL OUTCOME EVALUATION: Goal: Fall Prevention-Safe Patient Handling Outcome: Ongoing (Interventions Implemented as Appropriate) 05/17/1645 05/17/16 1732 05/20/16 0700 Restraint Interventions Safety Promotion/Fall Prevention -- -- nonskid shoes/slippers when out of bed Musculoskeletal Interventions Muscle Strengthening -- activity/mobility promoted;mobility in bed promoted;personal routines for BADL/IADL promoted -- Activity and Safety Assistive Device -- -- -- Daily Care Interventions Self-Care Promotion independence encouraged -- -- Stephens Fall Risk History of Falling -- -- 0 Secondary Diagnosis -- -- 15 Ambulatory Aids -- -- 0 Intravenous Therapy/Heparin/Saline Lock -- -- 20 Gait/Transferring -- -- 0 Mental Status -- -- 0 Score -- -- 35 OTHER Stephens Fall Risk -- -- Med Positioning Body Position -- -- independent 05/20/16 0743 Restraint Interventions Safety Promotion/Fall Prevention -- Musculoskeletal Interventions Muscle Strengthening -- Activity and Safety Assistive Device None Daily Care Interventions Self-Care Promotion -- Stephens Fall Risk History of Falling -- Secondary Diagnosis -- Ambulatory Aids -- Intravenous Therapy/Heparin/Saline Lock -- Gait/Transferring -- Mental Status -- Score -- OTHER Stephens Fall Risk -- Positioning Body Position -- Goal: Infection Control Outcome: Ongoing (Interventions Implemented as Appropriate) 05/19/16199905/20/16 0700 Safety Interventions Isolation Precautions -- standard precautions maintained Infection Prevention rest/sleep promoted -- Coping Strategies Supportive Measures active listening utilized;goal setting facilitated -- Goal: Discharge Needs Assessment Outcome: Ongoing (Interventions Implemented as Appropriate) 05/14/16 1900 05/15/16 1632 05/17/16 1732 Discharge Needs Assessment Concerns To Be Addressed -- -- no discharge needs identified Readmission Within The Last 30 Days previous discharge plan unsuccessful -- -- Equipment Needed After Discharge -- none -- Current Discharge Risk chronically ill -- -- Discharge Disposition -- -- still a patient Current Health Anticipated Changes Related to Illness -- none -- Activity/Self Care Review of Systems Equipment Currently Used at Home medication pump -- -- Living Environment Transportation Available car;family or friend will provide -- -- * Plan of Care - Pauline Miles RN - 05/20/2016 3:28 AM EST Problem: Patient Care Overview Goal: Plan of Care Review Outcome: Ongoing (Interventions Implemented as Appropriate) 05/17/16 1732 05/19/161999 Coping/Psychosocial Plan Of Care Reviewed With -- patient Plan of Care Review Progress progress toward functional goals as expected -- OUTCOME EVALUATION NOTE: OUTCOME SUMMARY: Yash had a good night. C/o headache, given prn tylenol and found relief. Has been NPO since 0000 awaiting OR today. Urology prep completed. PLAN MOVING FORWARD: OR today INDIVIDUALIZED FALL PREVENTION INTERVENTIONS: Patient-specific fall risk factors per assessment: [current deficits]: none Assistance [level of assistance required for transfers and ambulation]: Independent Supervision [direct monitoring required during toileting and ADLs]: Minimal assist with ADLs Surveillance [continuous indirect monitoring]: Purposeful rounding, call robles within reach Patient-specific fall prevention interventions for sensory deficits provided, if applicable: [X] Yes glasses, lighting adjusted for task safety CPG GOAL OUTCOME EVALUATION: Goal: Individualization & Mutuality Outcome: Ongoing (Interventions Implemented as Appropriate) 05/14/16 0026 05/19/16 1505 05/20/16 0325 Mutuality/Individual Preferences What Anxieties, Fears or Concerns Do You Have About Your Health or Care? -- -- I hope the surgery goes well What Questions Do You Have About Your Health or Care? none -- -- What Information Would Help Us Give You More Personalized Care? -- You can call me Yash -- Goal: Fall Prevention-Safe Patient Handling Outcome: Ongoing (Interventions Implemented as Appropriate) 05/15/16 1632 05/17/16 0745 05/17/16 1732 Restraint Interventions Safety Promotion/Fall Prevention -- -- -- Musculoskeletal Interventions Muscle Strengthening -- -- activity/mobility promoted;mobility in bed promoted;personal routines for BADL/IADL promoted Activity and Safety Assistive Device None -- -- Daily Care Interventions Self-Care Promotion -- independence encouraged -- Stephens Fall Risk History of Falling -- -- -- Secondary Diagnosis -- -- -- Ambulatory Aids -- -- -- Intravenous Therapy/Heparin/Saline Lock -- -- -- Gait/Transferring -- -- -- Mental Status -- -- -- Score -- -- -- OTHER Stephens Fall Risk -- -- -- Positioning Body Position -- -- -- 05/19/161999 Restraint Interventions Safety Promotion/Fall Prevention nonskid shoes/slippers when out of bed;safety round/check completed;fall prevention program maintained Musculoskeletal Interventions Muscle Strengthening -- Activity and Safety Assistive Device -- Daily Care Interventions Self-Care Promotion -- Stephens Fall Risk History of Falling 0 Secondary Diagnosis 15 Ambulatory Aids 0 Intravenous Therapy/Heparin/Saline Lock 20 Gait/Transferring 0 Mental Status 0 Score 35 OTHER Stephens Fall Risk Med Positioning Body Position independent Goal: Infection Control Outcome: Ongoing (Interventions Implemented as Appropriate) 05/19/161999 Safety Interventions Isolation Precautions standard precautions maintained Infection Prevention rest/sleep promoted Coping Strategies Supportive Measures active listening utilized;goal setting facilitated Goal: Discharge Needs Assessment Outcome: Ongoing (Interventions Implemented as Appropriate) 05/14/16 1900 05/15/16 1632 05/17/16 173 Discharge Needs Assessment Concerns To Be Addressed -- -- no discharge needs identified Readmission Within The Last 30 Days previous discharge plan unsuccessful -- -- Equipment Needed After Discharge -- none -- Current Discharge Risk chronically ill -- -- Discharge Disposition -- -- still a patient Current Health Anticipated Changes Related to Illness -- none -- Activity/Self Care Review of Systems Equipment Currently Used at Home medication pump -- -- Living Environment Transportation Available car;family or friend will provide -- -- * Plan of Care - Amanda Guerra RN - 05/19/2016 3:13 PM EST Problem: Patient Care Overview Goal: Plan of Care Review Outcome: Ongoing (Interventions Implemented as Appropriate) 05/17/16 1732 05/19/16 0830 Coping/Psychosocial Plan Of Care Reviewed With -- patient Plan of Care Review Progress progress toward functional goals as expected -- OUTCOME EVALUATION NOTE: OUTCOME SUMMARY: Yash had a good day. He did get his haircut. His diet was changed to clear liquids and he tolerated them well. He started on the bowel prep that was ordered per urology team request. His nephrostomy tube remains patent with cloudy urine. He was started on IVF of NS at 150 per hour. He continues to deny having any pain and he is ambulating around the unit multiple times. PLAN MOVING FORWARD: NPO at Midnight for surgery on Thursday. Continue with bowel prep as ordered. Monitor I&O's and nephrostomy tube output. INDIVIDUALIZED FALL PREVENTION INTERVENTIONS: Patient-specific fall risk factors per assessment: [current deficits]: Not currently Assistance [level of assistance required for transfers and ambulation]: Independent Supervision [direct monitoring required during toileting and ADLs]: No Surveillance [continuous indirect monitoring]: Purposeful rounding, masimo, call light in reach at all times. Patient-specific fall prevention interventions for sensory deficits provided, if applicable: No CPG GOAL OUTCOME EVALUATION: * Plan of Care - Pauline Miles RN - 05/19/2016 3:32 AM EST Problem: Patient Care Overview Goal: Plan of Care Review Outcome: Ongoing (Interventions Implemented as Appropriate) 05/17/16 17305/18/162019 Coping/Psychosocial Plan Of Care Reviewed With -- patient Plan of Care Review Progress progress toward functional goals as expected -- OUTCOME EVALUATION NOTE: OUTCOME SUMMARY: Yash had a quiet night. Denied pain. 2L started on day shift, finished up. Plentiful output form neph tube and pt also voided x1. PLAN MOVING FORWARD: Awaiting surgery Thursday INDIVIDUALIZED FALL PREVENTION INTERVENTIONS: Patient-specific fall risk factors per assessment: [current deficits]: none Assistance [level of assistance required for transfers and ambulation]: Independent Supervision [direct monitoring required during toileting and ADLs]: Minimal assist with ADLs Surveillance [continuous indirect monitoring]: Purposeful rounding, call robles within reach Patient-specific fall prevention interventions for sensory deficits provided, if applicable: [X] Yes glasses available, lighting adjusted CPG GOAL OUTCOME EVALUATION: Goal: Individualization & Mutuality Outcome: Ongoing (Interventions Implemented as Appropriate) 05/14/16 0026 Mutuality/Individual Preferences What Anxieties, Fears or Concerns Do You Have About Your Health or Care? none What Questions Do You Have About Your Health or Care? none What Information Would Help Us Give You More Personalized Care? none Goal: Fall Prevention-Safe Patient Handling Outcome: Ongoing (Interventions Implemented as Appropriate) 05/15/16 1632 05/17/16 0745 05/17/161731 Restraint Interventions Safety Promotion/Fall Prevention -- -- -- Musculoskeletal Interventions Muscle Strengthening -- -- activity/mobility promoted;mobility in bed promoted;personal routines for BADL/IADL promoted Activity and Safety Assistive Device None -- -- Daily Care Interventions Self-Care Promotion -- independence encouraged -- Stephens Fall Risk History of Falling -- -- -- Secondary Diagnosis -- -- -- Ambulatory Aids -- -- -- Intravenous Therapy/Heparin/Saline Lock -- -- -- Gait/Transferring -- -- -- Mental Status -- -- -- Score -- -- -- OTHER Stephens Fall Risk -- -- -- Positioning Body Position -- -- -- 05/18/162019 Restraint Interventions Safety Promotion/Fall Prevention nonskid shoes/slippers when out of bed;safety round/check completed Musculoskeletal Interventions Muscle Strengthening -- Activity and Safety Assistive Device -- Daily Care Interventions Self-Care Promotion -- Stephens Fall Risk History of Falling 0 Secondary Diagnosis 15 Ambulatory Aids 0 Intravenous Therapy/Heparin/Saline Lock 20 Gait/Transferring 0 Mental Status 0 Score 35 OTHER Stephens Fall Risk Med Positioning Body Position independent Goal: Infection Control Outcome: Ongoing (Interventions Implemented as Appropriate) 05/18/162019 Safety Interventions Isolation Precautions standard precautions maintained (immunosupression) Infection Prevention rest/sleep promoted Coping Strategies Supportive Measures self-care encouraged;goal setting facilitated Goal: Discharge Needs Assessment Outcome: Ongoing (Interventions Implemented as Appropriate) 05/14/16 1900 05/15/16 1632 05/17/16 1732 Discharge Needs Assessment Concerns To Be Addressed -- -- no discharge needs identified Readmission Within The Last 30 Days previous discharge plan unsuccessful -- -- Equipment Needed After Discharge -- none -- Current Discharge Risk chronically ill -- -- Discharge Disposition -- -- still a patient Current Health Anticipated Changes Related to Illness -- none -- Activity/Self Care Review of Systems Equipment Currently Used at Home medication pump -- -- Living Environment Transportation Available car;family or friend will provide -- -- * Plan of Care - Amanda Guerra RN - 05/18/2016 3:46 PM EST Problem: Patient Care Overview Goal: Plan of Care Review Outcome: Ongoing (Interventions Implemented as Appropriate) 05/17/16 1732 05/18/16 0850 Coping/Psychosocial Plan Of Care Reviewed With -- patient Plan of Care Review Progress progress toward functional goals as expected -- OUTCOME EVALUATION NOTE: OUTCOME SUMMARY: Yash had a good day. He denied any complaints of pain. His nephrostomy tube continues to put out urine although a bit decreased this afternoon. He was encouraged to take more fluids in. He will receive fluid bolus this evening in addition. Will start bowel prep on Thursday sometime. His vitals remain stable and no fevers noted. PLAN MOVING FORWARD: Awaiting surgical intervention on ThursdayMay 20. INDIVIDUALIZED FALL PREVENTION INTERVENTIONS: Patient-specific fall risk factors per assessment: [current deficits]: Nephrostomy tube Assistance [level of assistance required for transfers and ambulation]: independent Supervision [direct monitoring required during toileting and ADLs]: independent Surveillance [continuous indirect monitoring]: Purposeful rounding, facundo, call light in reach at all times Patient-specific fall prevention interventions for sensory deficits provided, if applicable: No CPG GOAL OUTCOME EVALUATION: * Plan of Care - Magaly Rodrigues RN - 05/18/2016 2:51 AM EST Problem: Patient Care Overview Goal: Plan of Care Review Outcome: Ongoing (Interventions Implemented as Appropriate) 05/17/161731 Coping/Psychosocial Plan Of Care Reviewed With patient Plan of Care Review Progress progress toward functional goals as expected OUTCOME EVALUATION NOTE: OUTCOME SUMMARY: Pleasant. Ambulating independently. Tolerating IV antibiotics. Continues with dual conduit urine flow. Resting well between care. PLAN MOVING FORWARD: Anticipating OR with urology on Thursday. INDIVIDUALIZED FALL PREVENTION INTERVENTIONS: Patient-specific fall risk factors per assessment: [current deficits]: no Assistance [level of assistance required for transfers and ambulation]: Independent. Supervision [direct monitoring required during toileting and ADLs]: Independent. Surveillance [continuous indirect monitoring]: Call robles. Rounding. Patient-specific fall prevention interventions for sensory deficits provided, if applicable: [X] No CPG GOAL OUTCOME EVALUATION: Goal: Individualization & Mutuality Outcome: Ongoing (Interventions Implemented as Appropriate) 05/14/16 0026 05/17/161731 Individualization Patient Specific Preferences -- would like a hair cut before surgery if possible Patient Specific Goals -- Surgery next week Mutuality/Individual Preferences What Anxieties, Fears or Concerns Do You Have About Your Health or Care? none -- What Questions Do You Have About Your Health or Care? none -- What Information Would Help Us Give You More Personalized Care? none -- Goal: Fall Prevention-Safe Patient Handling Outcome: Ongoing (Interventions Implemented as Appropriate) 05/15/16 1632 05/17/16 0745 05/17/16 1732 Restraint Interventions Safety Promotion/Fall Prevention -- -- -- Musculoskeletal Interventions Muscle Strengthening -- -- activity/mobility promoted;mobility in bed promoted;personal routines for BADL/IADL promoted Activity and Safety Assistive Device None -- -- Daily Care Interventions Self-Care Promotion -- independence encouraged -- Stephens Fall Risk History of Falling -- -- -- Secondary Diagnosis -- -- -- Ambulatory Aids -- -- -- Intravenous Therapy/Heparin/Saline Lock -- -- -- Gait/Transferring -- -- -- Mental Status -- -- -- Score -- -- -- OTHER Stephens Fall Risk -- -- -- Positioning Body Position -- -- -- 05/17/16 2100 Restraint Interventions Safety Promotion/Fall Prevention nonskid shoes/slippers when out of bed;safety round/check completed Musculoskeletal Interventions Muscle Strengthening -- Activity and Safety Assistive Device -- Daily Care Interventions Self-Care Promotion -- Stephens Fall Risk History of Falling 0 Secondary Diagnosis 15 Ambulatory Aids 0 Intravenous Therapy/Heparin/Saline Lock 20 Gait/Transferring 0 Mental Status 0 Score 35 OTHER Stephens Fall Risk Med Positioning Body Position independent Goal: Infection Control Outcome: Ongoing (Interventions Implemented as Appropriate) 05/16/16 18405/17/162099 Safety Interventions Isolation Precautions -- standard precautions maintained;protective environment maintained Infection Prevention -- rest/sleep promoted Coping Strategies Supportive Measures active listening utilized;positive reinforcement provided -- Goal: Discharge Needs Assessment Outcome: Ongoing (Interventions Implemented as Appropriate) 05/14/16 1900 05/15/16 1632 05/17/161731 Discharge Needs Assessment Concerns To Be Addressed -- -- no discharge needs identified Readmission Within The Last 30 Days previous discharge plan unsuccessful -- -- Equipment Needed After Discharge -- none -- Current Discharge Risk chronically ill -- -- Discharge Disposition -- -- still a patient Current Health Anticipated Changes Related to Illness -- none -- Activity/Self Care Review of Systems Equipment Currently Used at Home medication pump -- -- Living Environment Transportation Available car;family or friend will provide -- -- Goal: Interdisciplinary Rounds/Family Conf Outcome: Ongoing (Interventions Implemented as Appropriate) 05/17/161731 Interdisciplinary Rounds/Family Conf Participants nursing;patient;physician * Plan of Care - Sonia Collins RN - 05/17/2016 5:38 PM EST Problem: Patient Care Overview Goal: Plan of Care Review Outcome: Ongoing (Interventions Implemented as Appropriate) 05/17/16 173 Coping/Psychosocial Plan Of Care Reviewed With patient Plan of Care Review Progress progress toward functional goals as expected OUTCOME EVALUATION NOTE: OUTCOME SUMMARY: Patient out of bed to chair and ambulating independently, voiding and tolerating PO, Iv antibiotics PLAN MOVING FORWARD: Would like to have a hair cut prior to surgery INDIVIDUALIZED FALL PREVENTION INTERVENTIONS: Patient-specific fall risk factors per assessment: [current deficits]: na Assistance [level of assistance required for transfers and ambulation]: independent Supervision [direct monitoring required during toileting and ADLs]: standby Surveillance [continuous indirect monitoring]: Purposeful roundingFacundo Patient-specific fall prevention interventions for sensory deficits provided, if applicable: [X] No CPG GOAL OUTCOME EVALUATION: Goal: Individualization & Mutuality Outcome: Ongoing (Interventions Implemented as Appropriate) 05/17/16 173 Individualization Patient Specific Preferences would like a hair cut before surgery if possible Patient Specific Goals Surgery next week Goal: Fall Prevention-Safe Patient Handling Outcome: Ongoing (Interventions Implemented as Appropriate) 05/17/16 0745 05/17/16 173 Restraint Interventions Safety Promotion/Fall Prevention nonskid shoes/slippers when out of bed -- Musculoskeletal Interventions Muscle Strengthening -- activity/mobility promoted;mobility in bed promoted;personal routines for BADL/IADL promoted Daily Care Interventions Self-Care Promotion independence encouraged -- Positioning Body Position independent -- Goal: Infection Control Outcome: Ongoing (Interventions Implemented as Appropriate) 05/16/16 1849 05/17/16 173 Safety Interventions Isolation Precautions -- standard precautions maintained Coping Strategies Supportive Measures active listening utilized;positive reinforcement provided -- Goal: Discharge Needs Assessment Outcome: Ongoing (Interventions Implemented as Appropriate) 05/14/16 1900 05/17/16 173 Discharge Needs Assessment Concerns To Be Addressed -- no discharge needs identified Current Discharge Risk chronically ill -- Discharge Disposition -- still a patient Goal: Interdisciplinary Rounds/Family Conf Outcome: Ongoing (Interventions Implemented as Appropriate) 05/17/161731 Interdisciplinary Rounds/Family Conf Participants nursing;patient;physician * Consult Note - Eleanor Bird [facility] - 05/17/2016 1:19 PM EST Clinical Pharmacist Note-Vancomycin Cody Gomez Yuan [id number] Cody Pendletonneri is a 65 y.o. male is being monitored due to antibiotic therapy which includes intravenous vancomycin. Regimen: Vancomycin 1500 mg every 12 hours Pharmacokinetic information: Wt Readings from Last 1 Encounters: 05/17/16 91.9 kg (202 lb 9.6 oz) Ht Readings from Last 1 Encounters: 05/13/16 177.8 cm (5' 10) Labs: Vancomycin: VANC TROUGH (mg/L) Date Value 05/17/2016 16.2 Creatinine clearance: CREATININE (mg/dL) Date Value 05/17/2016 1.23 Recommendations: Dosing recommendations: ??? No change in vancomycin dose or dosing interval at this time. Monitoring recommendations: ??? Recheck vancomycin trough level (30 minutes prior to a scheduled dose) if significant changes in SCr, BUN or fluid status occur; otherwise recheck serum trough levels (30 minutes prior to a scheduled dose) in 5-7 days. We will continue to monitor the patient as long as he remains on vancomycin therapy. Please watch SCr, BUN and fluid status closely. Please page the care area pharmacist with any questions you may have. Alternately, during off-hours you may call [phone] to contact a pharmacist. ELEANOR BIRD [facility] Ext [phone] * Consult Note - Guy Almanza RN - 05/17/2016 9:04 AM EST Images from the original note were not included. Infiltration/Extravasation Scale Instructions: Strikeout non-applicable grades, highlight the grade which applies to this patient byBOLD lettering and COLOR RED Edema 1 to 6 inches (2.5 to 15 cm) in any direction Or 6 -25% of limb affected Infiltration harm % for this extremity 6% Based on measurement calculation ( greatest measurement X divided by length of extremity multipliedby 100=%) Specific details of infiltration/extravasation Medication infiltrated NS Infiltration of any amount of ____x irritant, vesicant Include:Right or left extremity?right Anterior (volar aspect) or posterior (dorsal aspect) forearm Measurement in cm of length and width of affected area---Affected extremity 5cm by 5cm Measurement of Circumference in cm of Infiltrated area of affected extremity 28 Measurement of Circumference in cm of Unaffected extremity 27 (at same location as affected extremity) Pulses present on affected extremity Yes Medicated treatment given per policy/ order heat Plan for continued monitoring of infiltration/extravasation Name of MD contacted Paged [phone] pager at [phone] 05/17 Name of RN contacted Katharine STANLEY 05/17 at 0900 Name of Pharmacist if consulted N/A Name of Plastics MD ( if consulted) NA (Mandatory photo for infiltrations/ extravasations scoring a stage 2 or greater, but recommended for stage 1)( include measuring tape and identifier in the photo) BOILER SETTER CARING FOR THIS PATIENT WILL CONTINUE TO MONITOR AND WILL ASSUME CARE, VASCULAR ACCESS WILL NOT FOLLOW THIS EVENT AT THE SIGNING OF THIS NOTE. * Plan of Care - Magaly Rodrigues RN - 05/17/2016 3:21 AM EST Problem: Patient Care Overview Goal: Plan of Care Review Outcome: Ongoing (Interventions Implemented as Appropriate) 05/16/16 0745 05/16/16 1849 Coping/Psychosocial Plan Of Care Reviewed With patient -- Plan of Care Review Progress -- improving OUTCOME EVALUATION NOTE: OUTCOME SUMMARY: Ambulating independently. Good urine from both conduits. Tolerating antibiotics. PLAN MOVING FORWARD: Surgery with urology next week. INDIVIDUALIZED FALL PREVENTION INTERVENTIONS: Patient-specific fall risk factors per assessment: [current deficits]: no Assistance [level of assistance required for transfers and ambulation]: independent Supervision [direct monitoring required during toileting and ADLs]: independent Surveillance [continuous indirect monitoring]: Call robles. Rounding. Patient-specific fall prevention interventions for sensory deficits provided, if applicable: [X] No CPG GOAL OUTCOME EVALUATION: Goal: Individualization & Mutuality Outcome: Ongoing (Interventions Implemented as Appropriate) 05/14/16 0026 05/15/16 1632 Individualization Patient Specific Goals -- increase mobilization Mutuality/Individual Preferences What Anxieties, Fears or Concerns Do You Have About Your Health or Care? none -- What Questions Do You Have About Your Health or Care? none -- What Information Would Help Us Give You More Personalized Care? none -- Goal: Fall Prevention-Safe Patient Handling Outcome: Ongoing (Interventions Implemented as Appropriate) 05/15/16 1632 05/16/16 0745 Restraint Interventions Safety Promotion/Fall Prevention -- nonskid shoes/slippers when out of bed Musculoskeletal Interventions Muscle Strengthening activity/mobility promoted;mobility in bed promoted -- Activity and Safety Assistive Device None -- Daily Care Interventions Self-Care Promotion independence encouraged -- Stephens Fall Risk History of Falling -- 0 Secondary Diagnosis -- 15 Ambulatory Aids -- 0 Intravenous Therapy/Heparin/Saline Lock -- 20 Gait/Transferring -- 0 Mental Status -- 0 Score -- 35 OTHER Stephens Fall Risk -- Med Positioning Body Position -- independent Goal: Infection Control Outcome: Ongoing (Interventions Implemented as Appropriate) 05/16/161848 Safety Interventions Isolation Precautions standard precautions maintained Infection Prevention rest/sleep promoted Coping Strategies Supportive Measures active listening utilized;positive reinforcement provided Goal: Discharge Needs Assessment Outcome: Ongoing (Interventions Implemented as Appropriate) 05/14/16 1900 05/15/16 1632 05/16/161848 Discharge Needs Assessment Concerns To Be Addressed -- -- no discharge needs identified Readmission Within The Last 30 Days previous discharge plan unsuccessful -- -- Equipment Needed After Discharge -- none -- Current Discharge Risk chronically ill -- -- Discharge Disposition -- still a patient -- Current Health Anticipated Changes Related to Illness -- none -- Activity/Self Care Review of Systems Equipment Currently Used at Home medication pump -- -- Living Environment Transportation Available car;family or friend will provide -- -- Goal: Interdisciplinary Rounds/Family Conf 05/16/161848 Interdisciplinary Rounds/Family Conf Participants physician;nursing * Plan of Care - Sonia Collins RN - 05/16/2016 7:01 PM EST Problem: Patient Care Overview Goal: Plan of Care Review Outcome: Ongoing (Interventions Implemented as Appropriate) 05/16/16 0745 05/16/161848 Coping/Psychosocial Plan Of Care Reviewed With patient -- Plan of Care Review Progress -- improving OUTCOME EVALUATION NOTE: OUTCOME SUMMARY: Patient out of bed to chair and ambulating independently, voiding, nephrostomy patent with light toconcentrated urine, family at bedside intermittently. PLAN MOVING FORWARD: IV antibiotics, increase mobilization, OR next week. INDIVIDUALIZED FALL PREVENTION INTERVENTIONS: Patient-specific fall risk factors per assessment: [current deficits]: Na Assistance [level of assistance required for transfers and ambulation]: independent Supervision [direct monitoring required during toileting and ADLs]: standby Surveillance [continuous indirect monitoring]: Carle[place], purposeful rounding Patient-specific fall prevention interventions for sensory deficits provided, if applicable: [X] No CPG GOAL OUTCOME EVALUATION: Goal: Individualization & Mutuality Outcome: Ongoing (Interventions Implemented as Appropriate) 05/15/16 1632 Individualization Patient Specific Goals increase mobilization Goal: Fall Prevention-Safe Patient Handling Outcome: Ongoing (Interventions Implemented as Appropriate) 05/15/16 1632 05/16/16 0745 Restraint Interventions Safety Promotion/Fall Prevention -- nonskid shoes/slippers when out of bed Musculoskeletal Interventions Muscle Strengthening activity/mobility promoted;mobility in bed promoted -- Activity and Safety Assistive Device None -- Daily Care Interventions Self-Care Promotion independence encouraged -- Positioning Body Position -- independent Goal: Infection Control Outcome: Ongoing (Interventions Implemented as Appropriate) 05/16/16 184 Safety Interventions Isolation Precautions standard precautions maintained Infection Prevention rest/sleep promoted Coping Strategies Supportive Measures active listening utilized;positive reinforcement provided Goal: Discharge Needs Assessment Outcome: Ongoing (Interventions Implemented as Appropriate) 05/16/161848 Discharge Needs Assessment Concerns To Be Addressed no discharge needs identified Goal: Interdisciplinary Rounds/Family Conf Outcome: Ongoing (Interventions Implemented as Appropriate) 05/16/161848 Interdisciplinary Rounds/Family Conf Participants physician;nursing * Consult Note - Fan Roca LPN - 05/16/2016 7:10 AM EST On May 14 I was sent to 423 to do a PICC DRSG change . As I was changing the DRSG the Pt told me that when the [facility] changed the DRSG last ,they pulled it out a few cm and then pushed it back in . As I undid the stat loc the PICC shot out 2 cm . I believe it was just coiled under the skin . I cleaned the area well and redressed the PICC . I then went to the Pts Nurse and told her what had happenedand that it would be a good idea to let the MD know what happened and that it would be a good idea to get a chest x ray as well to check placement . * Plan of Care - uYdelka Hinojosa RN - 05/16/2016 4:17 AM EST Problem: Patient Care Overview Goal: Plan of Care Review Outcome: Ongoing (Interventions Implemented as Appropriate) 05/16/16 0412 Coping/Psychosocial Plan Of Care Reviewed With patient Plan of Care Review Progress progress towards functional goals is fair OUTCOME EVALUATION NOTE: OUTCOME SUMMARY: Yash has rested well tonight. He had an additional PIV placed at start of shift to allow for timely administration of IV abx due to incompatibility. He has voided once overnight and his nephrostomy has put out large amounts of urine. He denies any pain. PLAN MOVING FORWARD: Continue to monitor labs, prepare patient for surgical procedure next week INDIVIDUALIZED FALL PREVENTION INTERVENTIONS: Patient-specific fall risk factors per assessment: [current deficits]: IV lines, drains Assistance [level of assistance required for transfers and ambulation]: Independent Supervision [direct monitoring required during toileting and ADLs]: Independent Surveillance [continuous indirect monitoring]: Purposeful rounding, call robles within reach Patient-specific fall prevention interventions for sensory deficits provided, if applicable: [X] No CPG GOAL OUTCOME EVALUATION: Goal: Individualization & Mutuality Outcome: Ongoing (Interventions Implemented as Appropriate) 05/15/16 1632 Individualization Patient Specific Goals increase mobilization Goal: Fall Prevention-Safe Patient Handling Outcome: Ongoing (Interventions Implemented as Appropriate) 05/15/16 1632 05/15/16 2143 Restraint Interventions Safety Promotion/Fall Prevention -- nonskid shoes/slippers when out of bed Musculoskeletal Interventions Muscle Strengthening activity/mobility promoted;mobility in bed promoted -- Daily Care Interventions Self-Care Promotion independence encouraged -- Positioning Body Position -- independent Goal: Infection Control Outcome: Ongoing (Interventions Implemented as Appropriate) 05/15/16 2143 Safety Interventions Isolation Precautions standard precautions maintained Infection Prevention single patient room provided Coping Strategies Supportive Measures active listening utilized Goal: Discharge Needs Assessment Outcome: Ongoing (Interventions Implemented as Appropriate) 05/14/16 1900 05/15/16 1632 Discharge Needs Assessment Concerns To Be Addressed -- no discharge needs identified Readmission Within The Last 30 Days previous discharge plan unsuccessful -- Current Discharge Risk chronically ill -- Living Environment Transportation Available car;family or friend will provide -- Goal: Interdisciplinary Rounds/Family Conf Outcome: Ongoing (Interventions Implemented as Appropriate) 05/15/16 1632 Interdisciplinary Rounds/Family Conf Participants nursing;physician;patient Problem: Health Knowledge, Opportunity to Enhance (Adult,NICU,[facility],Obstetrics,Pediatric) Goal: Identify Related Risk Factors and Signs and Symptoms Related risk factors and signs and symptoms are identified upon initiation of Human Response Clinical Practice Guideline (CPG) Outcome: Ongoing (Interventions Implemented as Appropriate) 05/16/16 0412 Health Knowledge, Opportunity to Enhance Health Knowledge, Opportunity for Enhanced: Related Risk Factors reinforcement inadequate Signs and Symptoms (Health Knowledge Enhance) knowledge/skill deficiency * Plan of Care - Sonia Collins RN - 05/15/2016 4:38 PM EST Problem: Patient Care Overview Goal: Plan of Care Review Outcome: Ongoing (Interventions Implemented as Appropriate) 05/15/16 1632 Coping/Psychosocial Plan Of Care Reviewed With patient Plan of Care Review Progress improving OUTCOME EVALUATION NOTE: OUTCOME SUMMARY: Patient out of bed to chair and ambulating independently, reports positive pain control and dressing changed, worked with care management, PICC removed, peripheral IV started. PLAN MOVING FORWARD: Pain control, increase mobilization, IV antibiotics INDIVIDUALIZED FALL PREVENTION INTERVENTIONS: Patient-specific fall risk factors per assessment: [current deficits]: na Assistance [level of assistance required for transfers and ambulation]: independent Supervision [direct monitoring required during toileting and ADLs]: standby Surveillance [continuous indirect monitoring]: Purposeful roundFacundo gilmore Patient-specific fall prevention interventions for sensory deficits provided, if applicable: [X] No CPG GOAL OUTCOME EVALUATION: Goal: Individualization & Mutuality Outcome: Ongoing (Interventions Implemented as Appropriate) 05/15/16 1632 Individualization Patient Specific Goals increase mobilization Goal: Fall Prevention-Safe Patient Handling Outcome: Ongoing (Interventions Implemented as Appropriate) 05/15/16 0930 05/15/16 1632 Restraint Interventions Safety Promotion/Fall Prevention -- nonskid shoes/slippers when out of bed Musculoskeletal Interventions Muscle Strengthening -- activity/mobility promoted;mobility in bed promoted Activity and Safety Assistive Device -- None Daily Care Interventions Self-Care Promotion -- independence encouraged Positioning Body Position independent -- Goal: Infection Control Outcome: Ongoing (Interventions Implemented as Appropriate) 05/15/16 1632 Safety Interventions Isolation Precautions standard precautions maintained Infection Prevention single patient room provided;environmental surveillance performed;rest/sleep promoted Coping Strategies Supportive Measures active listening utilized;positive reinforcement provided Goal: Discharge Needs Assessment Outcome: Ongoing (Interventions Implemented as Appropriate) 05/14/16 1900 05/15/16 1632 Discharge Needs Assessment Concerns To Be Addressed -- no discharge needs identified Equipment Needed After Discharge -- none Current Discharge Risk chronically ill -- Discharge Disposition -- still a patient Current Health Anticipated Changes Related to Illness -- none Living Environment Transportation Available car;family or friend will provide -- Goal: Interdisciplinary Rounds/Family Conf Outcome: Ongoing (Interventions Implemented as Appropriate) 05/15/16 1632 Interdisciplinary Rounds/Family Conf Participants nursing;physician;patient * Plan of Care - Jayne De La Cruz RN - 05/15/2016 9:18 AM EST Problem: Health Knowledge, Opportunity to Enhance (Adult,NICU,[facility],Obstetrics,Pediatric) Goal: Knowledgeable about Health Subject/Topic Patient will demonstrate the desired outcomes by discharge/transition of care. Outcome: Ongoing (Interventions Implemented as Appropriate) 05/15/16 0917 Health Knowledge, Opportunity to Enhance (Adult,NICU,,Obstetrics,Pediatric) Knowledgeable about Health Subject/Topic unable to achieve outcome Patient Guidelines for Self-Care after PICC (Peripherally Inserted Central Catheter) Removal Your PICC was removed on MAY 15, 2016 at 09:10 An antibiotic ointment was applied to the insertion site (where the PICC went into your skin). ___X___Betadine ointment was used (a dark reddish brown color, and should not be confused with blood) Bacitracin ointment was used. (a clear ointment). The nurse applied gauze and a transparent ( see-through) dressing over the insertion site. To help your PICC insertion site heal: *Avoid heavy lifting (for example, no more than a gallon of milk) or vigorous activities for 24 hours * Keep the dressing over the insertion site dry for 24 hours * You can remove the dressing after 24 hours. Call your doctor after your PICC has been removed if you experience any of the following: * Fever (temperature over 100.1F) * Chills * Drainage from the insertion site ( including bleeding). Remember the Betadine antibiotic ointment, if used, was to protect your skin when the PICC was removed, can look like blood! *Redness, warmth, pain, swelling, or a pink/red streak going up your arm *A knot at the insertion site or anywhere in the arm *If bleeding should occur, hold firm pressure for 3-5 minutes. Do not remove the dressing that the nurse put on when the PICC was removed.. If needed, apply another dressing over the first dressing. If bleeding does not stop, call or seek medical attention. * Consult Note - Perla Neal - 05/15/2016 9:13 AM EST UROLOGY CONSULTATION HISTORY OF PRESENT ILLNESS Cody Bolden is a 65 y.o. gentleman well known to the urology service with a history of renal transplant 2011 with subsequent ureteral stricture and recurrent UTI s/p multiple balloon dilations with IR/Nephroureteral stent placement. As summarized in Dr. Block's preoperative clinic note 04/23/16 in preparation for operative repair of his ureteral stricture, his recent history includes: ?? 09/17/2015 Donor renal transplant for nodular glomerulosclerosis 10/26/2015 Stent removed Cr 1.49 11/08/2015 Cr 1.89 11/12/2015 Enterococcal bacteremia. U/S mild hydronephrosis 11/23/2015 Cr 2.27 531/2016 Cr 3.1 Whaley placed 12/07/2015 Readmitted fever 12/28/2015 Readmitted fever Cr 7 12/29/2015 PCN placed Stricture dilation + Nephroureteral tube placed 01/29/2016 Admitted staph bacteremia on 02/01/2016 Repeat ureteroplasty 03/04/2016 Repeat ureteroplasty 03/25/2016 N-gram stricture of distal 2-3cm of transplant ureter ?? On 04/25/16 he was re-admitted for fevers and coag neg staff sepsis of a urinary source. He underwent removal of his NU stent and placement of a 4.7F 10cm JJ stent and a 10.2F nephrostomy tube 04/30/16. Urine culture sent at that time demonstrated no growth He also notes that his PICC line had migrated out and was subsequently reinserted at an outside provider. He has felt fatigued and anorexic for the last several weeks. He was seen in the transplant clinic 05/13/16 with worsening complaints, low grade temperatures to 99F, and mild leukocytosis of 12 in thesetting of chronic immunosuppression. He was simmons cultured and admitted and started on empiric Vancomycin based on prior cultures. His urine ultimately grew >100K Klebsiella pneumonia resistant only to ampicillin. His antibiotic coverage was increased to include Zosyn and infectious disease has been following along closely. Today he reports continued fatigue but denies fevers, chills, or flank pain. His nephrostomy tube has remained open. He continues to void small amounts per urethra. He denies gross hematuria. PAST MEDICAL HISTORY Past Medical History Diagnosis Date ??? Back pain ??? Colon polyp ??? CVA (cerebral vascular accident) Per report but no deficits ??? ESRD (end stage renal disease) ??? GERD (gastroesophageal reflux disease) ??? HTN (hypertension) ??? Microhematuria ??? Type 2 diabetes mellitus PAST SURGICAL HISTORY Past Surgical History Procedure Laterality Date ??? Pro anastomosis, av, any site Left 05/09/2015 AV FISTULA CREATION, DIRECT HEMODIALYSIS, ANY SITE, EG ASHWINI FISTULA UPPER EXTREMITY performed by Que Amaro MD at [facility] MA[facility] OR ??? Pro transplantation of kidney N/A 09/16/2015 @KIDNEY TRANSPLANT, WITHOUT RECIPIENT NEPHRECTOMY performed by Franko Larkin MD at [facility] MAIN OR ??? Pro transplant, prep cadaver renal graft N/A 09/16/2015 @PREPARATION CADAVERIC RENAL ALLOGRAFT performed by Franko Larkin MD at [facility] MAIN OR ??? N/A 09/16/2015 ORGAN ACQUISITION RENAL, CADAVERIC performed by Franko Larkin MD at [facility] MAIN OR SOCIAL HISTORY Social History Social History ??? Marital status: Spouse name: N/A ??? Number of children: N/A ??? Years of education: N/A Occupational History ??? Not on file. Social History Main Topics ??? Smoking status: Current Some Day Smoker Types: Cigars Last attempt to quit: 01/02/2015 ??? Smokeless tobacco: Never Used Comment: cigars, one weekly ??? Alcohol use No ??? Drug use: No ??? Sexual activity: Not on file Other Topics Concern ??? Not on file Social History Narrative FAMILY HISTORY History reviewed. No pertinent family history. ALLERGY No Known Allergies HOME MEDICATIONS No current facility-administered medications on file prior to encounter. Current Outpatient Prescriptions on File Prior to Encounter Medication Sig Dispense Refill ??? levothyroxine (SYNTHROID) 100 mcg Tablet Take 100 mcg by mouth daily. ??? acetaminophen (TYLENOL) 500 mg Tablet Take 1,000 mg by mouth every 6 hours as needed for Pain. ??? valGANciclovir (VALCYTE) 450 mg Tablet Take 1 tablet by mouth 2 times daily. 30 tablet 3 ??? omeprazole (PRILOSEC) 20 mg Capsule, Delayed Release(E.C.) Take 20 mg by mouth daily as needed. ??? mycophenolate (CELLCEPT) 250 mg Capsule Take 1 capsule by mouth 2 times daily. ??? potassium phosphate, monobasic, (K-PHOS) 500 mg Tablet, Soluble Take 2 tablets by mouth 2 timesdaily. 1 tablet 0 ??? Magnesium Gluconate 27 mg (500 mg) Tablet Take 2 tablets by mouth 4 times daily. (Patient taking differently: Take 4 tablets by mouth 2 times daily.) ??? tamsulosin (FLOMAX) 0.4 mg Capsule, Sust. Release 24 hr Take 1 capsule by mouth nightly. 30 capsule 11 ??? calciTRIol (ROCALTROL) 0.5 mcg Capsule Take 1 capsule by mouth daily. 30 capsule 11 ??? tacrolimus (PROGRAF) 1 mg Capsule Take 1 mg by mouth 2 times daily. ??? DILTiazem (DILTIAZEM CD) 120 mg Capsule, Sust. Release 24 hr Take 1 capsule by mouth daily. 30 capsule 11 ??? clopidogrel (PLAVIX) 75 mg Tablet Take 1 tablet by mouth daily. (Patient not taking: Reported on 04/23/2016) 30 tablet 0 REVIEW OF SYSTEMS Per HPI VITALS Temp: [36.4 ??C (97.5 ??F)-37.8 ??C (100 ??F)] Heart Rate: [66-73] Resp: [16-18] BP: (147-177)/(69-88) I/O last 3 completed shifts: In: 5720 [P.O.:2300; I.V.:3340; IV Piggyback:80] Out: 6550 [Urine:6550] I/O this shift: In: - Out: 900 [Urine:900] PHYSICAL EXAM GEN: Alert and oriented to person, place and time. NAD CV: Regular rate, RRR PULM: Non labored breathing on RA ABD: Soft, non distended, non tender to palpation : No CVA tenderness. LLQ PCN tube draining yellow urine with sediment MSK: symmetric strength in bilateral upper and lower extremities NEURO: grossly normal, no focal deficits, moves all 4 extremities EXT: symmetric, no edema, no calf tenderness Recent Labs 05/15/16 0315 05/14/16 0645 05/13/16 1000 WBC 9.1 9.4 11.9* HGB 14.7 14.2 15.7 HCT 41.3 41.1 44.1 PLATELET 209 208 267 NA 140 139 136 K 3.6 3.3* 3.9 CL 101 100 96* CO2 26 25 24 BUN 9* 12 15 CREATININE 1.23 1.22 1.39 CULTURES: Urine culture [[id number]] (Abnormal) Collected: 05/13/16 1300 ? Lab Status: Final result Specimen: Urine NS Updated: 05/15/16 1038 ? Urine Culture ? Greater than 100,000 cfu/ml Klebsiella pneumoniae (A) ? Organism Klebsiella pneumoniae (A) ? Susceptibility ? Klebsiella pneumoniae ? MICROSCAN METHOD ? Amikacin Sensitive ? Ampicillin Resistant ? Ampicillin + Sulbactam Sensitive ? Aztreonam Sensitive ? Cefazolin Sensitive ? Cefepime Sensitive ? Ceftazidime Sensitive ? Ceftriaxone Sensitive ? Cefuroxime Sensitive ? Ciprofloxacin Sensitive ? Gentamicin Sensitive ? Levofloxacin Sensitive ? Meropenem Sensitive ? Nitrofurantoin Sensitive ? Piperacillin/Tazobactam Sensitive ? Tetracycline Sensitive ? Tobramycin Sensitive ? Trimethoprim/Sulfa Sensitive ? Blood culture [[id number]] Collected: 05/13/16 1232 ? Lab Status: Preliminary result Specimen: Blood from Peripheral Updated: 05/15/16 1501 ? Blood Culture No growth at 2 days. ? Blood culture [[id number]] Collected: 05/13/16 1219 ? Lab Status: Preliminary result Specimen: Blood from PICC Line Updated: 05/15/16 1501 ? Blood Culture No growth at 2 days. ? Urine culture Nephrostomy Urine [[id number]] Collected: 04/28/16 1344 ? Lab Status: Final result Specimen: Nephrostomy Urine Updated: 04/30/16 1135 ? Urine Culture No growth (Less than 100 cfu/ml). ASSESSMENT / RECOMMENDATION: Cody Bolden is a 65 y.o. male with a history of ESRD donor transplantation with subsequent graft ureteral stricture now s/p failed endoscopic dilatation x 3 and recurrent staph and enterococcal sepsis of a urinary source now with Klebsiella UTI, now on appropriate antibiotic coverage. Clinically stable with negative blood cultures x 48hrs. He is currently scheduled for ureteral reconstruction 05/20/16. At this point, given his stability,would consider proceeding with ureteral reconstruction as previously planned. Will discuss with and continue to follow. -Continue culture directed antibiotics, likely through surgical date -Leave PCN open to drainage Please do not hesitate to contact urology in the interim. Associated attestation - Moy Arredondo MD - 05/22/2016 11:17 PM EST Attending Addendum I have seen the patient and reviewed the history and examination. I agree with the details as written. The assessment and plan were formulated in discussion with me and I agree with them as documented. I would add the following: Will await cultures. Depending on patients clinical course will make a final decision re surgery, but will likely proceed on 05/20/2016 Moy Arredondo * Plan of Care - Cami Leonardo RN - 05/15/2016 5:47 AM EST Problem: Patient Care Overview Goal: Plan of Care Review Outcome: Ongoing (Interventions Implemented as Appropriate) 05/14/16194305/14/162031 Coping/Psychosocial Plan Of Care Reviewed With -- patient Plan of Care Review Progress improving -- OUTCOME EVALUATION NOTE: OUTCOME SUMMARY: Patient slept for most of the night. He had a temperature at the start of the shift of 100 degrees F. Gave tylenol and temperature decreased within normal limits. Nephrostomy bag is draining well. Patient is tolerating antibiotics. Patient is tolerating IV fluids. PLAN MOVING FORWARD: Continue to monitor. INDIVIDUALIZED FALL PREVENTION INTERVENTIONS: Patient-specific fall risk factors per assessment: [current deficits]: independent Assistance [level of assistance required for transfers and ambulation]: independent Supervision [direct monitoring required during toileting and ADLs]: independent Surveillance [continuous indirect monitoring]: Masimo, hourly rounding Patient-specific fall prevention interventions for sensory deficits provided, if applicable: [X] Yes CPG GOAL OUTCOME EVALUATION: Goal: Individualization & Mutuality Outcome: Ongoing (Interventions Implemented as Appropriate) 05/14/16 0026 Mutuality/Individual Preferences What Anxieties, Fears or Concerns Do You Have About Your Health or Care? none What Questions Do You Have About Your Health or Care? none What Information Would Help Us Give You More Personalized Care? none Goal: Fall Prevention-Safe Patient Handling Outcome: Ongoing (Interventions Implemented as Appropriate) 05/14/162031 Stephens Fall Risk History of Falling 0 Secondary Diagnosis 15 Ambulatory Aids 0 Intravenous Therapy/Heparin/Saline Lock 20 Gait/Transferring 0 Mental Status 0 Score 35 OTHER Stephens Fall Risk Med Restraint Interventions Safety Promotion/Fall Prevention nonskid shoes/slippers when out of bed Positioning Body Position independent Goal: Infection Control Outcome: Ongoing (Interventions Implemented as Appropriate) 05/14/16 1000 05/14/162031 Safety Interventions Isolation Precautions -- standard precautions maintained Infection Prevention -- single patient room provided Coping Strategies Supportive Measures positive reinforcement provided;active listening utilized -- Goal: Discharge Needs Assessment Outcome: Ongoing (Interventions Implemented as Appropriate) 05/14/16 0317 05/14/16 1900 Discharge Needs Assessment Concerns To Be Addressed no discharge needs identified -- Readmission Within The Last 30 Days -- previous discharge plan unsuccessful Equipment Needed After Discharge -- medication pump Current Discharge Risk -- chronically ill Discharge Disposition -- home healthcare service Current Health Anticipated Changes Related to Illness -- none Activity/Self Care Review of Systems Equipment Currently Used at Home -- medication pump Living Environment Transportation Available -- car;family or friend will provide Goal: Interdisciplinary Rounds/Family Conf Outcome: Ongoing (Interventions Implemented as Appropriate) 05/14/16 1859 Interdisciplinary Rounds/Family Conf Participants nursing;patient * Plan of Care - Amanda Guerra RN - 05/14/2016 7:50 PM EST Problem: Patient Care Overview Goal: Plan of Care Review Outcome: Ongoing (Interventions Implemented as Appropriate) 05/14/16 1000 05/14/16 1944 Coping/Psychosocial Plan Of Care Reviewed With patient -- Plan of Care Review Progress -- improving OUTCOME EVALUATION NOTE: OUTCOME SUMMARY: Yash slept in naps throughout the day. He denied any pain. His picc dressing was changed by vascular access nurse see there note for full details. IVF infusing as ordered. He tolerated some po solids and fluids today. PLAN MOVING FORWARD: x-ray of picc line to confirm line related to IV team RN notes. Encourage po fluids. Monitor urine output from nephrostomy tube. Await cultures return. INDIVIDUALIZED FALL PREVENTION INTERVENTIONS: Patient-specific fall risk factors per assessment: [current deficits]: Malaise, Low grade fever, Assistance [level of assistance required for transfers and ambulation]: independent Supervision [direct monitoring required during toileting and ADLs]: Arms length Surveillance [continuous indirect monitoring]: Purposeful rounding, masimo, call light in reach at all times. Patient-specific fall prevention interventions for sensory deficits provided, if applicable: No CPG GOAL OUTCOME EVALUATION: Goal: Individualization & Mutuality Outcome: Ongoing (Interventions Implemented as Appropriate) 05/14/16 0026 Mutuality/Individual Preferences What Anxieties, Fears or Concerns Do You Have About Your Health or Care? none What Questions Do You Have About Your Health or Care? none What Information Would Help Us Give You More Personalized Care? none * Consult Note - Aubrey Horvath MD - 05/14/2016 2:13 PM EST INFECTIOUS DISEASE INITIAL CONSULT NOTE Reason for Consult: UTI Consulting Service: Transplant surgery Consulting Attending: Que Amaro,* Admission Date: 05/13/2016 History of Present Illness: 65 y.o. male with a history HCV, DM, HTN and renal failure due to hypertensive nephropathy, who received a donor kidney transplantation in 09/2015, which has been complicated by a ureteral stricture, requiring a permanent percutaneous nephrostomy despite multiple dilatations. He has had multiple bouts of bacteremia due to his nephrostomy. Most recently, he was admitted from 04/25 to 04/30 for CoNS UTI and bacteremia. His nephrostomy tube and stent were exchanged on 04/30; his blood cultures cleared on 04/26. He was discharged on daptomycin (to allow for once daily infusion in infusion suite), to be continued until next week, when heis scheduled to have reconstructive surgery to fix his stricture. He has not been feeling well since discharge: tired, no appetite, loosing weight. No dysuria and nochange in color or smell of urine. No abdominal pain. When he was seen in transplant clinic for regular follow up, he was found to be hypotensive and admitted for infectious workup and hydration. Since, a UA and urine culture collected with a clean catch are consistent with a UTI, with GNR. He does not yet feel better, despite broadened antibiotics. ?? Transplant related ID issues: On tacrolimus 1 mg bid, mycophenolate 250 mg bid On SMX/TMP for PJP px CMV D+/R+, still on valganciclovir BKV in blood undetectable 03/25, but detectable in urine 02/25 ?? Past ID involvement in Mr. Bolden's care: [...] with 3 weeks of vancomycin in 02/2016 Review of Systems: Pertinent positives and negatives noted in HPI. Remainder of systems reviewed and found negative. Allergies: No Known Allergies Pertinent Medications: vancomycin and piperacillin/tazobactam Past Medical and Surgical History: Past Medical [...] EXTREMITY performed by Que Amaro MD at [facility] OR ??? Pro transplantation of kidney N/A 09/16/2015 @KIDNEY TRANSPLANT, WITHOUT RECIPIENT NEPHRECTOMY performed by Franko Larkin MD at [facility] OR ??? Pro transplant, prep cadaver renal graft N/A 09/16/2015 @PREPARATION CADAVERIC RENAL ALLOGRAFT performed by Franko Larkin MD at [facility] OR ??? N/A 09/16/2015 ORGAN ACQUISITION RENAL, CADAVERIC performed by Franko Larkin MD at [facility] OR Prior To Admission Medications: Prescriptions Prior to Admission Medication Sig Dispense Refill Last Dose ??? levothyroxine (SYNTHROID) 100 mcg Tablet Take 100 mcg by mouth daily. Taking at Unknown time ??? acetaminophen (TYLENOL) 500 mg Tablet Take 1,000 mg by mouth every 6 hours as needed for Pain. Taking at Unknown time ??? valGANciclovir (VALCYTE) 450 mg Tablet Take 1 tablet by mouth 2 times daily. 30 tablet 3 Takingat Unknown time ??? omeprazole (PRILOSEC) 20 mg Capsule, Delayed Release(E.C.) Take 20 mg by mouth daily as needed.Taking at Unknown time ??? mycophenolate (CELLCEPT) 250 mg Capsule Take 1 capsule by mouth 2 times daily. Taking at Unknown time ??? potassium phosphate, monobasic, (K-PHOS) 500 mg Tablet, Soluble Take 2 tablets by mouth 2 timesdaily. 1 tablet 0 Taking at Unknown time ??? Magnesium Gluconate 27 mg (500 mg) Tablet Take 2 tablets by mouth 4 times daily. (Patient taking differently: Take 4 tablets by mouth 2 times daily.) Taking at Unknown time ??? tamsulosin (FLOMAX) 0.4 mg Capsule, Sust. Release 24 hr Take 1 capsule by mouth nightly. 30 capsule 11 Taking at Unknown time ??? calciTRIol (ROCALTROL) 0.5 mcg Capsule Take 1 capsule by mouth daily. 30 capsule 11 Taking at Unknown time ??? tacrolimus (PROGRAF) 1 mg Capsule Take 1 mg by mouth 2 times daily. Taking at Unknown time ??? DILTiazem (DILTIAZEM CD) 120 mg Capsule, Sust. Release 24 hr Take 1 capsule by mouth daily. 30 capsule 11 Taking at Unknown time ??? clopidogrel (PLAVIX) 75 mg Tablet Take 1 tablet by mouth daily. (Patient not taking: Reported on 04/23/2016) 30 tablet 0 Not Taking at Unknown time Inpatient Scheduled Medications: ? ? potassium phosphate (monobasic) 1,000 mg Oral 4 Times Daily WC & HS ??? piperacillin-tazobactam 3.375 g Intravenous Q8H ??? [START ON 05/15/2016] Vancomycin Level - MAR Order Reminder NOT APPLICABLE Once ??? calciTRIol 0.5 mcg Oral Daily ??? DILTiazem 120 mg Oral Daily ??? levothyroxine 100 mcg Oral QAM ??? mycophenolate 250 mg Oral BID ??? tacrolimus 1 mg Oral BID ??? tamsulosin 0.4 mg Oral Nightly ??? valGANciclovir 450 mg Oral BID ??? pantoprazole 20 mg Oral Daily ??? vancomycin 1.25 g Intravenous Q12H ??? sodium chloride 0.9 % 5 mL Intravenous BID Family History: History reviewed. No pertinent family history. Social History and Habits: Social History Social History ??? Marital status: Spouse name: N/A ??? Number of children: N/A ??? Years of education: N/A Occupational History ??? Not on file. Social History Main Topics ??? Smoking status: Current Some Day Smoker Types: Cigars Last attempt to quit: 01/02/2015 ??? Smokeless tobacco: Never Used Comment: cigars, one weekly ??? Alcohol use No ??? Drug use: No ??? Sexual activity: Not on file Other Topics Concern ??? Not on file Social History Narrative Physical Exam: Last value Range last 24 hrs Temperature Temp: 37.5 ??C (99.5 ??F) Temp: [36.8 ??C (98.2 ??F)-37.8 ??C (100 ??F)] Heart Rate Heart Rate: 66 Heart Rate: [59-120] Blood Pressure BP: 150/70 BP: (132-182)/(53-88) Respiratory Rate Resp: 16 Resp: [16-27] SpO2 SpO2: 95 % SpO2: [89 %-97 %] General Not acutely ill HEENT No jaundice Heart Regular Lungs Clear Abdomen Soft, not tender; left lower abdominal kidney not tender; yellow urine from nephrostomy Extremities No edema Skin No rash Neuro Grossly intact Lines PICC intact Laboratory: Recent Labs 05/14/16 0645 05/13/16 1000 WBC 9.4 11.9* HGB 14.2 15.7 HCT 41.1 44.1 PLATELET 208 267 Recent Labs 05/14/16 0645 05/13/16 1000 NA 139 136 K 3.3* 3.9 CL 100 96* CO2 25 24 BUN 12 15 CREATININE 1.22 1.39 Recent Labs 05/13/16 1000 AST 18 ALT 17 ALKPHOS 63 BILITOT 2.4* BILIDIR 0.4* Component Value Date/Time SPGRAVITYUA 1.026 05/13/2016 1300 PHUADIP 5.0 05/13/2016 1300 PROTEINUADIP 100 (A) 05/13/2016 1300 GLUCOSEU Negative 05/13/2016 1300 KETONESUA Negative 05/13/2016 1300 UROBILIUADIP Normal 05/13/2016 1300 BLOODUADIP Moderate (A) 05/13/2016 1300 NITRATEUA Negative 05/13/2016 1300 LEUKOESTERUA Large (A) 05/13/2016 1300 WBCUA >182 (H) 05/13/2016 1300 BILIRUBINUA Negative 05/13/2016 1300 Microbiology: Blood Cultures: NGTD Urine Cultures: >100 k GNR Radiology/Studies/Procedures: 05/13 CXR normal Assessment: Cody Bolden is a 65 y.o. male with a history HCV, DM, HTN and renal failure due to hypertensive nephropathy, who received a donor kidney transplantation in 09/2015, which has been complicated by a ureteral stricture, requiring a permanent percutaneous nephrostomy despite multiple dilatations. He has had multiple bouts of bacteremia and UTI due to his nephrostomy. While he is completing a course of daptomycin for bacteremia and UTI due to coagulase-negative staphylococcus aureus, with a recommended 2 week course from 04/26, he now seems to have a UTI with a gram negative helena. We recommend to continue piperacillin/tazobactam until we know what the GNR is. Since no gram positives were found on the urine culture, you could stop vancomycin, especially since his nephrostomy was exchanged on the last admission, making colonization less likley We will follow up with antibiotic recommendations as the GNR is speciated and susceptibilities are reported. This patient was seen and discussed with ID attending Dr. Horvath. Recommendations discussed withprimary treating team. ID consult service will continue to follow patient. Do not hesitate to page us at [phone] with any further questions or concerns. Franko Kim MD Infectious Disease Fellow Pager [phone] Attending Addendum: I have seen and examined the patient, reviewed the data and agree with the note by Dr. Tipton. * Initial Assessments - Malina Phelan RN - 05/14/2016 11:46 AM EST Community Resources: Office of Care Management Initial Assessment Malina Phelan RN reviewed record and discussed patient with Care Team. Source of Information: Introduced self/reviewed role; services accepted. Reason for Hospitalization: Cody Bolden is a 65 y.o. male with a history of renal txp 09/2015 c/b ureteral stricture and coag negative staph bacteremia who presents with fatigue, dehydration Hospitalizations Within the Past 30 Days: 04/25/16 Anticipated Length Of Stay (If known): Week or more anticipated. Has surgery scheduled for this coming Sunday 05/20. Current Decision-Making Capacity: Cognitively able to make decisions independently Advance Care Planning: None on file. Information offered. Current Coping/Education/Information Needs: None at this time Current Functional Ability: Independent Functional Status Prior to Admission: Independent Home Environment: Lives in a home with his in [facility] Social & Family Supports/Community Resources: , family and friends Behavioral Health History: None on file Substance Use/Abuse: None on file Other Pertinent/Service Specific Information: None Health/Prescription Coverage: Primary Insurance: Medicare Part A & B Secondary Insurance: BC/BS Prescription Coverage: Yes [facility]acy[facility] Other: None Primary Care Provider: Urbano Denis MD [phone] Patient/Caregiver Goals of Treatment: Patient states I want to stay here until I'm better - I'm sick and tired of being sick. Potential Needs for Transition of Care: Unsure at this time Rehab/SNF: None at this time Home Health: No DME: No Dialysis: None Community Resources: None at this time. Transportation: Family member or friend Other: None Anticipated Barriers to Discharge/Special Considerations: None Plan: Surgery is planned for Thursday and then discharge plan will be made. A member of the Care Management team will continue to monitor progress, follow for continuity of care and assist with transition of care planning. Malina Phelan RN Pager: [phone] * Plan of Care - Keyana Moy RN - 05/14/2016 3:31 AM EST Problem: Patient Care Overview Goal: Plan of Care Review Outcome: Ongoing (Interventions Implemented as Appropriate) 05/14/16 0317 Coping/Psychosocial Plan Of Care Reviewed With patient OUTCOME EVALUATION NOTE: OUTCOME SUMMARY: Patient admitted from ED, temp 37.2 here,uneventful. Stool sample sent for C-diff. PLAN MOVING FORWARD: Will continue with antibiotic treatment.R/O c-diff. INDIVIDUALIZED FALL PREVENTION INTERVENTIONS: Patient-specific fall risk factors per assessment: [current deficits]: Assistance [level of assistance required for transfers and ambulation]: Independent, Non-skid slippers Supervision [direct monitoring required during toileting and ADLs]: Eyes on . Surveillance [continuous indirect monitoring]: Purposeful rounding; call light in reach Patient-specific fall prevention interventions for sensory deficits provided, if applicable: Glasses, Lighting adjusted for safety. CPG GOAL OUTCOME EVALUATION: * ED Triage - Paul Bain RN - 05/13/2016 4:35 PM EST Pt presents to ED with complaint of fever. Pt is a left kidney transplant Pt in September. Pt stated Ihave a 50% blockage in my ureter Pt stated that for the last 2 days he has been more fatigued thanusual. Today had appointment with transplant team and was sent to ER to wait to be admitted upstairs. Denies any chest pain and SOB. Pt has leg bag with yellow urine 350 mls output upon arrival. Pt also has AV fistula on left arm. Pt has right arm picc line. Skin PWD. RR even and fast. A&O x4. documented in this encounter Plan of Treatment Upcoming Encounters Date Type Department Care Team (Late st Contact Info) Description 04/15/2024 10:00 AM EDT Hospital Encounter [place] [address] Arrived Scheduled Orders Name Type Priority Associated Diagnoses Orde r Schedule XR Fluoro No Rad <1Hr Imaging Routine Onc e PRN (for Radiant use) for 1 Occurrences starting 05/20/2016 until 05/20/2016 documented as of this encounter Procedures Procedure Name Priority Date/Time Associated Diagnosis Comments ELECTRICAL ASSEMBLER SCAN 05/29/2016 12:00 AM EST HEMOGRAM STAT 05/28/2016 8:01 AM EST DIFFERENTIAL, AUTOMATED STAT 05/28/2016 8:01 AM EST TACROLIMUS LEVEL Timed 05/28/2016 8:01 AM EST CBC (WITH DIFF) STAT 05/28/2016 8:01 AM EST PHOSPHORUS Routine 05/28/2016 8:01 AM EST MAGNESIUM Routine 05/28/2016 8:01 AM EST BASIC METABOLIC PANEL Routine 05/28/2016 8:01 AM EST HEMOGRAM STAT 05/27/2016 5:43 AM EST DIFFERENTIAL, AUTOMATED STAT 05/27/2016 5:43 AM EST CBC (WITH DIFF) STAT 05/27/2016 5:43 AM EST PHOSPHORUS Routine 05/27/2016 5:43 AM EST MAGNESIUM Routine 05/27/2016 5:43 AM EST BASIC METABOLIC PANEL Routine 05/27/2016 5:43 AM EST POTASSIUM Routine 05/26/2016 4:57 PM EST XR CHEST PA AND LATERAL Routine 05/26/2016 12:20 PM EST BLOOD CULTURE STAT 05/26/2016 10:09 AM EST BLOOD CULTURE STAT 05/26/2016 10:04 AM EST URINE HOLD Routine 05/26/2016 9:54 AM EST URINALYSIS DIPSTICK Routine 05/26/2016 9 :54 AM EST URINE CULTURE Routine 05/26/2016 9:53 AM EST TACROLIMUS LEVEL Timed 05/26/2016 7:35 AM EST HEMOGRAM STAT 05/26/2016 4:30 AM EST DIFFERENTIAL, AUTOMATED STAT 05/26/2016 4:30 AM EST CBC (WITH DIFF) STAT 05/26/2016 4:30 AM EST PHOSPHORUS Routine 05/26/2016 4:30 AM EST MAGNESIUM Routine 05/26/2016 4:30 AM EST BASIC METABOLIC PANEL Routine 05/26/2016 4:30 AM EST MAGNESIUM Routine 05/25/2016 4:38 PM EST BASIC METABOLIC PANEL Routine 05/25/2016 4:38 PM EST XR ABDOMEN 1 VIEW Routine 05/25/2016 10: 39 AM EST HEMOGRAM STAT 05/25/2016 4:47 AM EST DIFFERENTIAL, AUTOMATED STAT 05/25/2016 4:47 AM EST CBC (WITH DIFF) STAT 05/25/2016 4:47 AM EST PHOSPHORUS Routine 05/25/2016 4:47 AM EST MAGNESIUM Routine 05/25/2016 4:47 AM EST BASIC METABOLIC PANEL Routine 05/25/2016 4:47 AM EST HEMOGRAM STAT 05/24/2016 4:45 AM EST DIFFERENTIAL, AUTOMATED STAT 05/24/2016 4:45 AM EST CBC (WITH DIFF) STAT 05/24/2016 4:45 AM EST PHOSPHORUS Routine 05/24/2016 4:45 AM EST MAGNESIUM Routine 05/24/2016 4:45 AM EST BASIC METABOLIC PANEL Routine 05/24/2016 4:45 AM EST TACROLIMUS LEVEL Timed 05/23/2016 7:50 AM EST HEMOGRAM STAT 05/23/2016 5:43 AM EST DIFFERENTIAL, AUTOMATED STAT 05/23/2016 5:43 AM EST CBC (WITH DIFF) STAT 05/23/2016 5:43 AM EST PHOSPHORUS Routine 05/23/2016 5:37 AM EST MAGNESIUM Routine 05/23/2016 5:37 AM EST BASIC METABOLIC PANEL Routine 05/23/2016 5:37 AM EST HEMOGRAM STAT 05/22/2016 7:29 AM EST DIFFERENTIAL, AUTOMATED STAT 05/22/2016 7:29 AM EST CBC (WITH DIFF) STAT 05/22/2016 7:29 AM EST PHOSPHORUS Routine 05/22/2016 7:29 AM EST MAGNESIUM Routine 05/22/2016 7:29 AM EST VANCOMYCIN, TROUGH Timed 05/22/2016 7: 29 AM EST BASIC METABOLIC PANEL Routine 05/22/2016 7:29 AM EST URINALYSIS WITH REFLEX CULTURE Routine 05/21/2016 10:52 AM EST URINE CULTURE Routine 05/21/2016 10:51 AM EST TACROLIMUS LEVEL Timed 05/21/2016 7:52 AM EST XR ABDOMEN 1 VIEW Routine 05/21/2016 6:2 9 AM EST HEMOGRAM STAT 05/21/2016 5:53 AM EST DIFFERENTIAL, AUTOMATED STAT 05/21/2016 5:53 AM EST CBC (WITH DIFF) STAT 05/21/2016 5:53 AM EST PHOSPHORUS Routine 05/21/2016 5:53 AM EST MAGNESIUM Routine 05/21/2016 5:53 AM EST BASIC METABOLIC PANEL Routine 05/21/2016 5:53 AM EST US RENAL TRANSPLANT LEFT Routine 05/20/2016 10:18 PM EST BMP W/FASTING GLUCOSE Routine 05/20/2016 10:15 PM EST HEMOGRAM Routine 05/20/2016 10:15 PM EST DIFFERENTIAL, AUTOMATED Routine 05/20/2016 10:15 PM EST LACTATE, WHOLE BLOOD Routine 05/20/2016 10:15 PM EST CBC (WITH DIFF) Routine 05/20/2016 10:15 PM EST PHOSPHORUS Routine 05/20/2016 10:15 PM EST MAGNESIUM Routine 05/20/2016 10:15 PM EST SPECIMEN TO PATHOLOGY Routine 05/20/2016 7:38 PM EST POCT GLUCOSE Routine 05/20/2016 7:32 PM EST POCT GLUCOSE Routine 05/20/2016 7:30 PM EST SPECIMEN TO PATHOLOGY Routine 05/20/2016 7:25 PM EST SURGICAL PATHOLOGY REPORT Routine 05/20/2016 7:23 PM EST @URETERONEOCYSTOSTOM Y ANASTOMOSIS OF SINGLE URETER TO BLADDER (WRVU 19.95) 05/20/2016 3:13 PM EST left ureteral stricture @URETERONEOCYSTOSTOM Y ANASTOMOSIS OF SINGLE URETER TO BLADDER (WRVU 19.95) 05/20/2016 3:13 PM EST left ureteral stricture XR FLUORO NO RAD <1HR - OR USE Routine 05/20/2016 1:59 PM EST HEMOGRAM STAT 05/20/2016 5:47 AM EST DIFFERENTIAL, AUTOMATED STAT 05/20/2016 5:47 AM EST CBC (WITH DIFF) STAT 05/20/2016 5:47 AM EST PHOSPHORUS Routine 05/20/2016 5:47 AM EST MAGNESIUM Routine 05/20/2016 5:47 AM EST BASIC METABOLIC PANEL Routine 05/20/2016 5:47 AM EST TACROLIMUS LEVEL Timed 05/19/2016 8:00 AM EST HEMOGRAM STAT 05/19/2016 4:17 AM EST DIFFERENTIAL, AUTOMATED STAT 05/19/2016 4:17 AM EST ABO/RH TYPING Routine 05/19/2016 4:17 AM EST PROTHROMBIN TIME Routine 05/19/2016 4:17 AM EST CBC (WITH DIFF) STAT 05/19/2016 4:17 AM EST ANTIBODY SCREEN Routine 05/19/2016 4:17 AM EST TYPE AND SCREEN ([facility]/CGP/MOSES) Routine 05/19/2016 4:17 AM EST PHOSPHORUS Routine 05/19/2016 4:17 AM EST MAGNESIUM Routine 05/19/2016 4:17 AM EST BASIC METABOLIC PANEL Routine 05/19/2016 4:17 AM EST HEMOGRAM STAT 05/18/2016 5:54 AM EST DIFFERENTIAL, AUTOMATED STAT 05/18/2016 5:54 AM EST CBC (WITH DIFF) STAT 05/18/2016 5:54 AM EST PHOSPHORUS Routine 05/18/2016 5:54 AM EST MAGNESIUM Routine 05/18/2016 5:54 AM EST BASIC METABOLIC PANEL Routine 05/18/2016 5:54 AM EST HEMOGRAM STAT 05/17/2016 5:35 AM EST DIFFERENTIAL, AUTOMATED STAT 05/17/2016 5:35 AM EST CBC (WITH DIFF) STAT 05/17/2016 5:35 AM EST PHOSPHORUS Routine 05/17/2016 5:35 AM EST MAGNESIUM Routine 05/17/2016 5:35 AM EST VANCOMYCIN, TROUGH Timed 05/17/2016 5: 35 AM EST BASIC METABOLIC PANEL Routine 05/17/2016 5:35 AM EST TACROLIMUS LEVEL STAT 05/16/2016 8:50 AM EST HEMOGRAM STAT 05/16/2016 6:24 AM EST DIFFERENTIAL, AUTOMATED STAT 05/16/2016 6:24 AM EST CBC (WITH DIFF) STAT 05/16/2016 6:24 AM EST PHOSPHORUS Routine 05/16/2016 6:24 AM EST MAGNESIUM Routine 05/16/2016 6:24 AM EST BASIC METABOLIC PANEL Routine 05/16/2016 6:24 AM EST URINALYSIS WITH REFLEX CULTURE Routine 05/15/2016 3:04 PM EST URINE CULTURE Routine 05/15/2016 3:04 PM EST VANCOMYCIN, TROUGH Timed 05/15/2016 5: 50 AM EST HEMOGRAM STAT 05/15/2016 3:15 AM EST DIFFERENTIAL, AUTOMATED STAT 05/15/2016 3:15 AM EST CBC (WITH DIFF) STAT 05/15/2016 3:15 AM EST PHOSPHORUS Routine 05/15/2016 3:15 AM EST MAGNESIUM Routine 05/15/2016 3:15 AM EST BASIC METABOLIC PANEL Routine 05/15/2016 3:15 AM EST XR CHEST ONE VIEW Routine 05/14/2016 7:1 5 PM EST HEMOGRAM STAT 05/14/2016 6:45 AM EST DIFFERENTIAL, AUTOMATED STAT 05/14/2016 6:45 AM EST CBC (WITH DIFF) STAT 05/14/2016 6:45 AM EST PHOSPHORUS Routine 05/14/2016 6:45 AM EST MAGNESIUM Routine 05/14/2016 6:45 AM EST BASIC METABOLIC PANEL Routine 05/14/2016 6:45 AM EST C. DIFFICILE SCREEN Routine 05/14/2016 2 :30 AM EST documented in this encounter Results * SCAN DOC: ELECTRICAL ASSEMBLER (05/29/2016 12:00 AM EST) Anatomical Region Laterality Modality Other Scanning Provider MEDIA MGR SCAN EXT O RDR/RSLT * Tacrolimus level (05/28/2016 8:01 AM EST) Tacrolimus 4.7 ng/mL [facility] Comment: Trough therapeutic: ??5-15 ng/mL Performed by ultra-performance liquid chromatography tandem mass spectrometry (UPLCMS/MS). Blood specimen (specimen) 05/28/2016 8:01 AM EST 05/28/2016 11:10 AM EST Narrative Resulting Agency Comment Spec In Lab Que Amaro MD CHEMISTRY ROCHELLE JENNINGS [facility] [place] [address] * (ABNORMAL) Differential, Automated (05/28/2016 8:01 AM EST) Neutrophil % 82.6 % [facility] Neutrophil Absolute 10.51(H) 1.70 - 6.10 x10(3)/ L [facility] Lymph % 9.7 % [facility] Lymphocytes Abs 1.2 0.9 - 3.2 x10(3)/[facility] Monocyte % 5.3 % [facility] Monocyte Abs 0.7 0.3 - 0.9 x10(3)/[facility] Eos % 1.5 % [facility] Eosinophils Abs 0.2 0.0 - 0.4 x10(3)/[facility] Basophil % 0.4 % [facility] Baso Absolute 0.0 0.0 - 0.1 x10(3)/[facility] Immature Gran % 0.50 % [facility] Comment: Immature granulocytes(IG's)percentage and absolute count will include metamyelocytes, myelocytes, and promyelocytes. Blood smears from CBCs yielding IG's will be scanned manually for concordance. If this scan disagrees with the automated IG or if promyelocytes are noted, a manual differential will be performed. Immature Gran Absolute 0.07(H) 0.00 - 0.04 x10(3)/[facility] Blood specimen (specimen) 05/28/2016 8:01 AM EST 05/28/2016 8:07 AM EST Narrative Resulting Agency Comment Spec In Lab Que Amaro MD HEMATOLOGY ORD ERABLES [facility] [place] [address] * (ABNORMAL) Hemogram (05/28/2016 8:01 AM EST) White Blood Cell 12.7(H) 4.0 - 9.5 x10(3)/[facility] Red Blood Cell 4.20(L) 4.58 - 5.54 x10(6)/[facility] Hemoglobin 13.8 13.7 - 16.5 gm/dL [facility] Hematocrit 39.6(L) 40.5 - 48.5 % [facility] Mean Cell Volume 94.3(H) 82.9 - 93.1 [facility] Mean Cell Hemoglobin 32.9(H) 27.5 - 32.1 pg [facility] Mean Cell Hemoglobin Concentration 34.8 32.0 - 35.7 gm/dL [facility] Platelet 276 145 - 357 x10(3)/mc L [facility] RDW Standard Deviation 45.1(H) 36.0 - 45.0 fL [facility] RDW coefficient of variation 13.2 11.4 - 13.8 % [facility] Mean Platelet Volume 8.5 7.6 - 12.9 [facility] LABORATORY NRBC% auto 0.0 % [facility] NRBC Absolute 0.000 0.000 - 0.000 x10(3)/mc L [facility] Blood specimen (specimen) 05/28/2016 8:01 AM EST 05/28/2016 8:07 AM EST Narrative Resulting Agency Comment Spec In Lab Que Amaro MD HEMATOLOGY ORD ERABLES Performing Organization Address City/[facility] Co de Phone Number [facility] [place] [address] * (ABNORMAL) Magnesium (05/28/2016 8:01 AM EST) Magnesium 0.68(L) 0.69 - 1.07 mmol/L [facility] Blood specimen (specimen) 05/28/2016 8:01 AM EST 05/28/2016 8:07 AM EST Narrative Resulting Agency Comment Spec In Lab Que Amaro MD CHEMISTRY ORDBhargav JENNINGS Performing Organization Address City/[facility]/ZIP Co de Phone Number [facility] [place] [address] * Phosphorus (05/28/2016 8:01 AM EST) Phosphorus 2.7 2.5 - 4.5 mg/dL [facility] Blood specimen (specimen) 05/28/2016 8:01 AM EST 05/28/2016 8:07 AM EST Narrative Resulting Agency Comment Spec In Lab Que Amaro MD CHEMISTRY ROCHELLE JENNINGS [facility] [place] [address] * Basic Metabolic Panel (non-fasting) (05/28/2016 8:01 AM EST) Glucose 181 65 - 199 mg/dL [facility] Comment:Diabetes: >=200 mg/d L plus symptoms Blood Urea Nitrogen 19 10 - 20 mg/dL [facility] Creatinine 1.16 0.80 - 1.50 mg/dL [facility] Comment: Please note that the pediatric reference intervals supplied above were not validated at [facility]. Results from pediatric patients should be interpreted in conjunction to the patient's age, height and muscle mass. Sodium 141 135 - 145 mmol/L [facility] Potassium 3.8 3.5 - 5.0 mmol/L [facility] Comment: Please note: ??Patients with WBC >100,000 may have falsely elevated Potassium levels. ??For accurate Potassium quantification in these patients send serum separator tube (gold top) for subsequent determinations. ??Contact the Clinical Chemistry Laboratory if there are any questions. Chloride 104 98 - 107 mmol/L [facility] Carbon Dioxide 23 22 - 31 mmol/L [facility] Anion Gap 14 5 - 15 mmol/L [facility] Calcium 9.4 8.5 - 10.5 mg/dL [facility] Est Glomerular Filtration Rate >60 >=60 [facility] Comment: This estimated [...] the following links into your internet browser. [email or web address] Blood specimen (specimen) 05/28/2016 8:01 AM EST 05/28/2016 8:07 AM EST Narrative Resulting Agency Comment Spec In Lab uQe Amaro MD CHEMISTRY ROCHELLE JENNINGS [facility] [place] [address] * (ABNORMAL) Differential, Automated (05/27/2016 5:43 AM EST) Neutrophil % 87.9 % [facility] Neutrophil Absolute 11.88(H) 1.70 - 6.10 x10(3)/mc L [facility] Lymph % 5.0 % [facility] Lymphocytes Abs 0.7(L) 0.9 - 3.2 x10(3)/mc L [facility] Monocyte % 5.5 % [facility] Monocyte Abs 0.8 0.3 - 0.9 x10(3)/mc L [facility] Eos % 0.9 % [facility] Eosinophils Abs 0.1 0.0 - 0.4 x10(3)/mc L [facility] Basophil % 0.3 % [facility] Baso Absolute 0.0 0.0 - 0.1 x10(3)/mc L [facility] Immature Gran % 0.40 % [facility] Comment: Immature granulocytes(IG's)percentage and absolute count will include metamyelocytes, myelocytes, and promyelocytes. Blood smears from CBCs yielding IG's will be scanned manually for concordance. If this scan disagrees with the automated IG or if promyelocytes are noted, a manual differential will be performed. Immature Gran Absolute 0.06(H) 0.00 - 0.04 x10(3)/ L [facility] Blood specimen (specimen) 05/27/2016 5:43 AM EST 05/27/2016 6:09 AM EST Narrative Resulting Agency Comment Spec In Lab Que Amaro MD HEMATOLOGY ORD ERABLES [facility] [place] [address] * (ABNORMAL) Hemogram (05/27/2016 5:43 AM EST) White Blood Cell 13.5(H) 4.0 - 9.5 x10(3)/[facility] LABORATORY Red Blood Cell 4.10(L) 4.58 - 5.54 x10(6)/[facility] LABORATORY Hemoglobin 13.1(L) 13.7 - 16.5 gm/dL [facility] Hematocrit 38.5(L) 40.5 - 48.5 % [facility] Mean Cell Volume 93.9(H) 82.9 - 93.1 fL [facility] Mean Cell Hemoglobin 32.0 27.5 - 32.1 pg [facility] Mean Cell Hemoglobin Concentration 34.0 32.0 - 35.7 gm/dL [facility] Platelet 246 145 - 357 x10(3)/ L [facility] RDW Standard Deviation 44.5 36.0 - 45.0 [facility] LABORATORY RDW coefficient of variation 13.1 11.4 - 13.8 % [facility] Mean Platelet Volume 8.8 7.6 - 12.9 [facility] LABORATORY NRBC% auto 0.0 % [facility] NRBC Absolute 0.000 0.000 - 0.000 x10(3)/ L [facility] Blood specimen (specimen) 05/27/2016 5:43 AM EST 05/27/2016 6:09 AM EST Narrative Resulting Agency Comment Spec In Lab Que Amaro MD HEMATOLOGY ORD ERABLES Performing Organization Address [facility] Co de Phone Number [facility] [place] [address] * Magnesium (05/27/2016 5:43 AM EST) Magnesium 0.73 0.69 - 1.07 mmol/L [facility] Blood specimen (specimen) 05/27/2016 5:43 AM EST 05/27/2016 6:09 AM EST Narrative Resulting Agency Comment Spec In Lab Que Amaro MD CHEMISTRY ORDBhargav JENNINGS Performing Organization Address [facility] de Phone Number [facility] [place] [address] * Phosphorus (05/27/2016 5:43 AM EST) Phosphorus 3.2 2.5 - 4.5 mg/dL [facility] Blood specimen (specimen) 05/27/2016 5:43 AM EST 05/27/2016 6:09 AM EST Narrative Resulting Agency Comment Spec In Lab Que Amaro MD CHEMISTRY ORDBhargav JENNINGS Performing Organization Address [facility] Co de Phone Number [facility] [place] [address] * Basic Metabolic Panel (non-fasting) (05/27/2016 5:43 AM EST) Glucose 148 65 - 199 mg/dL [facility] Comment:Diabetes: >=200 mg/d L plus symptoms Blood Urea Nitrogen 17 10 - 20 mg/dL [facility] Creatinine 1.04 0.80 - 1.50 mg/dL [facility] Comment: Please note that the pediatric reference intervals supplied above were not validated at [facility]. Results from pediatric patients should be interpreted in conjunction to the patient's age, height and muscle mass. Sodium 141 135 - 145 mmol/L [facility] Potassium 3.8 3.5 - 5.0 mmol/L [facility] Comment: Please note: ??Patients with WBC >100,000 may have falsely elevated Potassium levels. ??For accurate Potassium quantification in these patients send serum separator tube (gold top) for subsequent determinations. ??Contact the Clinical Chemistry Laboratory if there are any questions. Chloride 102 98 - 107 mmol/L [facility] Carbon Dioxide 24 22 - 31 mmol/L [facility] Anion Gap 15 5 - 15 mmol/L [facility] Calcium 9.0 8.5 - 10.5 mg/dL [facility] Est Glomerular Filtration Rate >60 >=60 [facility] Comment: This estimated [...] the following links into your internet browser. [email or web address] Blood specimen (specimen) 05/27/2016 5:43 AM EST 05/27/2016 6:09 AM EST Narrative Resulting Agency Comment Spec In Lab Que Amaro MD CHEMISTRY ROCHELLE JENNINGS [facility] [place] [address] * Potassium (05/26/2016 4:57 PM EST) Potassium 4.5 3.5 - 5.0 mmol/L [facility] Comment: Please note: ??Patients with WBC >100,000 may have falsely elevated Potassium levels. ??For accurate Potassium quantification in these patients send serum separator tube (gold top) for subsequent determinations. ??Contact the Clinical Chemistry Laboratory if there are any questions. Blood specimen (specimen) 05/26/2016 4:57 PM EST 05/26/2016 5:05 PM EST Narrative Resulting Agency Comment Spec In Lab Que Amaro MD CHEMISTRY ROCHELLE JENNINGS [facility] Organization Address City/State/ZIP Co de Phone Number [facility] [place] [address] * XR Chest PA & Lateral (Generic) (05/26/2016 12:20 PM EST) Anatomical Region Laterality Modality Chest N/A Digital Radiogra phy Impressions 05/26/2016 12:24 PM EST Very small bilateral pleural effusions. Allowing for low lung volumes/shallow inspiration, no other interval cardiopulmonary findings. Narrative 05/26/2016 12:24 PM EST EXAMINATION: XR CHEST PA AND LATERAL (GENERIC) CLINICAL HISTORY: hypoxia and increased WBC TECHNIQUE: PA and lateral views of the chest. ? COMPARISON: 05/14/2016 AP chest radiograph. FINDINGS: Right upper extremity PICC removed. Low lung volumes consistent with shallow inspiration. Very small posterior pleural effusions bilaterally, but the lungs appear clear. Unchanged cardiomediastinal silhouette allowing for PA versus prior AP projection. Vascular markings are within normal limits. No interval osseous findings are seen. Procedure Note Carolynn Garza MD - 05/26/2016 EXAMINATION: XR CHEST PA AND LATERAL (GENERIC) CLINICAL HISTORY: hypoxia and increased WBC TECHNIQUE: PA and lateral views of the chest. COMPARISON: 05/14/2016 AP chest radiograph. FINDINGS: Right upper extremity PICC removed. Low lung volumes consistentwith shallow inspiration. Very small posterior pleural effusions bilaterally,but the lungs appear clear. Unchanged cardiomediastinal silhouette allowing forPA versus prior AP projection. Vascular markings are within normal limits.No interval osseous findings are seen. IMPRESSION Very small bilateral pleural effusions. Allowing for low lung volumes/shallow inspiration, no other interval cardiopulmonary findings. Que Amaro MD IMG DX ORDERAB LES * Blood culture (05/26/2016 10:09 AM EST) Blood Culture No growth at 5 days. [facility] Blood specimen (specimen) 05/26/2016 10:09 AM EST 05/26/2016 10:35 AM EST Comment:R AC Narrative Resulting Agency Comment Spec In Lab Que Amaro MD MICROBIOLOGY - BLOOD ORDERABLES Performing Organization Address City/[facility]/ZIP Co de Phone Number [facility] [place] [address] * Blood culture (05/26/2016 10:04 AM EST) Blood Culture No growth at 5 days. [facility] Blood specimen (specimen) 05/26/2016 10:04 AM EST 05/26/2016 10:35 AM EST Comment:R H Narrative Resulting Agency Comment Spec In Lab Que Amaro MD MICROBIOLOGY - BLOOD ORDERABLES Performing Organization Address [facility]/ZIP Co de Phone Number [facility] [place] [phone] * Urine Hold (05/26/2016 9:54 AM EST) Hold, Urine Sample in lab. [facility] Urine specimen (specimen) Urine / Unknown 05/26/2016 9:54 AM EST 05/26/2016 10:46 AM EST Que Amaro MD URINE ORDERABL ES Performing Organization Address City/[facility]/ZIP Co de Phone Number [facility] [place] [address] * (ABNORMAL) Urinalysis without microscopic (05/26/2016 9:54 AM EST) Glucose, Urine Dipstick Negative Negative mg/dL [facility] Protein, Urine Dipstick 100(A) Negative mg/dL [facility] Bilirubin, Urine Dipstick Negative Negative mg/dL [facility] Comment: Clinical correlation required for positive Urine Bilirubin results as false positive may occur with some drugs and drug related products. If a false positive is suspected a serum total bilirubin should be considered if clinically indicated. Urobilinogen, Urine Dipstick Normal Normal mg/dL [facility] pH, Urn (dipstick) 6.0 5.0 - 8.0 [facility] Blood, Urine Dipstick Moderate(A) Negative mg/dL [facility] Ketone, Urine Dipstick Negative Negative mg/dL [facility] Nitrite, Urine Dipstick Negative Negative [facility] Leukocytes, Urine Dipstick Moderate(A) Negative mcL [facility] Appearance, Urine Dipstick Clear Clear [facility] Specific [place] Urine Automated 1.027 1.002 - 1.030 [facility] Color, Urine Dipstick Muna Yellow [facility] Urine specimen (specimen) 05/26/2016 9:54 AM EST 05/26/2016 10:46 AM EST Narrative Resulting Agency Comment Spec In Lab Que Amaro MD URINE ORDERABL ES Performing Organization Address [facility] Co de Phone Number [facility] [place] [address] * Urine culture Indwelling Catheter Urine (05/26/2016 9:53 AM EST) Urine Culture No growth (Less than 1,000 cfu/ml). [facility] Urine specimen obtained via indwelling urinary catheter (specimen) 05/26/2016 9:53 AM EST 05/26/2016 10:56 AM EST Narrative Resulting Agency Comment Spec In Lab Que Amaro MD MICROBIOLOGY - GENERAL ORDERABLES Performing Organization Address [facility]/ZIP Co de Phone Number [facility] [place] [address] * Tacrolimus level (05/26/2016 7:35 AM EST) Tacrolimus 5.3 ng/mL [facility] Comment: Trough therapeutic: ??5-15 ng/mL Performed by ultra-performance liquid chromatography tandem mass spectrometry (UPLCMS/MS). Blood specimen (specimen) 05/26/2016 7:35 AM EST 05/26/2016 11:12 AM EST Narrative Resulting Agency Comment Spec In Lab Que Amaro MD CHEMISTRY ROCHELLE JENNINGS [facility] [place] [address] * (ABNORMAL) Differential, Automated (05/26/2016 4:30 AM EST) Neutrophil % 80.7 % [facility] Neutrophil Absolute 10.51(H) 1.70 - 6.10 x10(3)/mc L [facility] Lymph % 10.3 % [facility] Lymphocytes Abs 1.3 0.9 - 3.2 x10(3)/mc L [facility] Monocyte % 6.5 % [facility] Monocyte Abs 0.8 0.3 - 0.9 x10(3)/mc L [facility] Eos % 1.6 % [facility] Eosinophils Abs 0.2 0.0 - 0.4 x10(3)/mc L [facility] Basophil % 0.4 % [facility] Baso Absolute 0.0 0.0 - 0.1 x10(3)/mc L [facility] Immature Gran % 0.50 % [facility] Comment: Immature granulocytes(IG's)percentage and absolute count will include metamyelocytes, myelocytes, and promyelocytes. Blood smears from CBCs yielding IG's will be scanned manually for concordance. If this scan disagrees with the automated IG or if promyelocytes are noted, a manual differential will be performed. Immature Gran Absolute 0.06(H) 0.00 - 0.04 x10(3)/ L [facility] Blood specimen (specimen) 05/26/2016 4:30 AM EST 05/26/2016 4:44 AM EST Narrative Resulting Agency Comment Spec In Lab Que Amaro MD HEMATOLOGY ORD ERABLES [facility] [place] [address] * (ABNORMAL) Hemogram (05/26/2016 4:30 AM EST) White Blood Cell 13.0(H) 4.0 - 9.5 x10(3)/[facility] LABORATORY Red Blood Cell 4.67 4.58 - 5.54 x10(6)/[facility] Hemoglobin 14.8 13.7 - 16.5 gm/dL [facility] Hematocrit 43.2 40.5 - 48.5 % [facility] Mean Cell Volume 92.5 82.9 - 93.1 fL [facility] Mean Cell Hemoglobin 31.7 27.5 - 32.1 pg [facility] Mean Cell Hemoglobin Concentration 34.3 32.0 - 35.7 gm/dL [facility] Platelet 304 145 - 357 x10(3)/[facility] LABORATORY RDW Standard Deviation 43.0 36.0 - 45.0 [facility] LABORATORY RDW coefficient of variation 12.9 11.4 - 13.8 % [facility] Mean Platelet Volume 8.6 7.6 - 12.9 [facility] LABORATORY NRBC% auto 0.0 % [facility] NRBC Absolute 0.000 0.000 - 0.000 x10(3)/ L [facility] Blood specimen (specimen) 05/26/2016 4:30 AM EST 05/26/2016 4:44 AM EST Narrative Resulting Agency Comment Spec In Lab Que mAaro MD HEMATOLOGY ORD ERABLES Performing Organization Address City/[facility]/ZIP Co de Phone Number [facility] [place] [address] * Magnesium (05/26/2016 4:30 AM EST) Pathologist [facility] Magnesium 0.82 0.69 - 1.07 mmol/L [facility] Blood specimen (specimen) 05/26/2016 4:30 AM EST 05/26/2016 4:44 AM EST Narrative Resulting Agency Comment Spec In Lab Que Amaro MD CHEMISTRY ORDBhargav JENNINGS Performing Organization Address [facility] Co de Phone Number [facility] [place] [address] * Phosphorus (05/26/2016 4:30 AM EST) [facility] Phosphorus 3.0 2.5 - 4.5 mg/dL [facility] Blood specimen (specimen) 05/26/2016 4:30 AM EST 05/26/2016 4:44 AM EST Narrative Resulting Agency Comment Spec In Lab Que Amaro MD CHEMISTRY ORDBhargav JENNINGS Performing Organization Address [facility] Co de Phone Number [facility] [place] [address] * (ABNORMAL) Basic Metabolic Panel (non-fasting) (05/26/2016 4:30 AM EST) Pathologist [facility] Glucose 224(H) 65 - 199 mg/dL [facility] Comment:Diabetes: >=200 mg/d L plus symptoms Blood Urea Nitrogen 20 10 - 20 mg/dL [facility] Comment:result rechecked-llu Creatinine 1.32 0.80 - 1.50 mg/dL [facility] Comment: Please note that the pediatric reference intervals supplied above were not validated at [facility]. Results from pediatric patients should be interpreted in conjunction to the patient's age, height and muscle mass. Sodium 143 135 - 145 mmol/L [facility] Potassium 3.7 3.5 - 5.0 mmol/L [facility] Comment: Please note: ??Patients with WBC >100,000 may have falsely elevated Potassium levels. ??For accurate Potassium quantification in these patients send serum separator tube (gold top) for subsequent determinations. ??Contact the Clinical Chemistry Laboratory if there are any questions. Chloride 100 98 - 107 mmol/L [facility] Carbon Dioxide 23 22 - 31 mmol/L [facility] Anion Gap 20(H) 5 - 15 mmol/L [facility] Calcium 9.8 8.5 - 10.5 mg/dL [facility] Comment:result rechecked-llu Est Glomerular Filtration Rate 54(L) >=60 [facility] Comment: This estimated [...] the following links into your internet browser. [email or web address] Blood specimen (specimen) 05/26/2016 4:30 AM EST 05/26/2016 4:44 AM EST Narrative Resulting Agency Comment Spec In Lab Que Amaro MD CHEMISTRY ROCHELLE JENNINGS [facility] [place] [address] * (ABNORMAL) Basic Metabolic Panel (non-fasting) (05/25/2016 4:38 PM EST) Glucose 189 65 - 199 mg/dL [facility] Comment:Diabetes: >=200 mg/d L plus symptoms Blood Urea Nitrogen 12 10 - 20 mg/dL [facility] Creatinine 1.10 0.80 - 1.50 mg/dL [facility] Comment: Please note that the pediatric reference intervals supplied above were not validated at [facility]. Results from pediatric patients should be interpreted in conjunction to the patient's age, height and muscle mass. Sodium 140 135 - 145 mmol/L [facility] Potassium 4.0 3.5 - 5.0 mmol/L [facility] Comment: Please note: ??Patients with WBC >100,000 may have falsely elevated Potassium levels. ??For accurate Potassium quantification in these patients send serum separator tube (gold top) for subsequent determinations. ??Contact the Clinical Chemistry Laboratory if there are any questions. Chloride 99 98 - 107 mmol/L [facility] Carbon Dioxide 25 22 - 31 mmol/L [facility] Anion Gap 16(H) 5 - 15 mmol/L [facility] Calcium 9.2 8.5 - 10.5 mg/dL [facility] Est Glomerular Filtration Rate >60 >=60 [facility] Comment: This estimated [...] the following links into your internet browser. [email or web address] Blood specimen (specimen) 05/25/2016 4:38 PM EST 05/25/2016 4:44 PM EST Narrative Resulting Agency Comment Spec In Lab Que Amaro MD CHEMISTRY ROCHELLE JENNINGS [facility] [place] [address] * Magnesium (05/25/2016 4:38 PM EST) Magnesium 0.74 0.69 - 1.07 mmol/L [facility] Blood specimen (specimen) 05/25/2016 4:38 PM EST 05/25/2016 4:44 PM EST Narrative Resulting Agency Comment Spec In Lab Que Amaro MD CHEMISTRY ROCHELLE JENNINGS [facility] [place] [address] * XR Abdomen 1 view (Generic) (05/25/2016 10:39 AM EST) Anatomical Region Laterality Modality Abdomen N/A Digital Radiogra phy Impressions 05/25/2016 10:45 AM EST Increasing mild to moderate gaseous distention throughout the large bowel most suggestive of an adynamic or reactive ileus Narrative 05/25/2016 10:45 AM EST EXAMINATION: XR ABDOMEN 1 VIEW (GENERIC) CLINICAL HISTORY: distended TECHNIQUE: Abdomen 2 views supine COMPARISON: 05/21/2016 FINDINGS: The left pelvic stent at the transplant kidney is unchanged. Since the prior study one of the drains is been removed, a pigtail catheter projecting over the left ilium remains in place. The lung bases are clear with minimal pleural effusions. . The small bowel is not distended. Small radiopaque structures projecting in the midline in the epigastrium probably correspond with medication in the gut. There is [id number] gaseous distention of the large bowel most suggestive of an adynamic ileus. No free air is seen. Bony structures appear intact. 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 Since theprior study one of the drains is been removed, a pigtail catheter projectingover the left ilium remains in place. The lung bases are clear with minimalpleural effusions. . The small bowel is not distended. Small radiopaquestructures projecting in the midline in the epigastrium probably correspond withmedication in the gut. There is [id number] gaseous distention of the largebowel most suggestive of an adynamic ileus. No free air is seen. Bony structuresappear intact. IMPRESSION Increasing mild to moderate gaseous distention throughout the large bowelmost suggestive of an adynamic or reactive ileus Que Amaro MD IMG DX ORDERAB LES * (ABNORMAL) Magnesium (05/25/2016 4:47 AM EST) Magnesium 0.61(L) 0.69 - 1.07 mmol/L [facility] Blood specimen (specimen) 05/25/2016 4:47 AM EST 05/25/2016 4:59 AM EST Narrative Resulting Agency Comment Spec In Lab Que Amaro MD CHEMISTRY ORDE [employer] Performing Organization Address [facility] [facility]/ZIP Co de Phone Number [facility] [place] [place] [address] * Phosphorus (05/25/2016 4:47 AM EST) Phosphorus 2.5 2.5 - 4.5 mg/dL [facility] Blood specimen (specimen) 05/25/2016 4:47 AM EST 05/25/2016 4:59 AM EST Narrative Resulting Agency Comment Spec In Lab Que Amaro MD CHEMISTRY ORDE [employer] Performing Organization Address City/[facility]/ZIP Co de Phone Number [facility] [place] [place] [address] * Basic Metabolic Panel (non-fasting) (05/25/2016 4:47 AM EST) Glucose 159 65 - 199 mg/dL [facility] Comment:Diabetes: >=200 mg/d L plus symptoms Blood Urea Nitrogen 10 10 - 20 mg/dL [facility] Creatinine 0.98 0.80 - 1.50 mg/dL [facility] Comment: Please note that the pediatric reference intervals supplied above were not validated at [facility]. Results from pediatric patients should be interpreted in conjunction to the patient's age, height and muscle mass. Sodium 138 135 - 145 mmol/L [facility] Potassium 3.5 3.5 - 5.0 mmol/L [facility] Comment: Please note: ??Patients with WBC >100,000 may have falsely elevated Potassium levels. ??For accurate Potassium quantification in these patients send serum separator tube (gold top) for subsequent determinations. ??Contact the Clinical Chemistry Laboratory if there are any questions. Chloride 98 98 - 107 mmol/L [facility] Carbon Dioxide 27 22 - 31 mmol/L [facility] Anion Gap 13 5 - 15 mmol/L [facility] Calcium 8.7 8.5 - 10.5 mg/dL [facility] Est Glomerular Filtration Rate >60 >=60 [facility] Comment: This estimated [...] the following links into your internet browser. [email or web address] Blood specimen (specimen) 05/25/2016 4:47 AM EST 05/25/2016 4:59 AM EST Narrative Resulting Agency Comment Spec In Lab Que Amaro MD CHEMISTRY ROCHELLE JENNINGS [facility] [place] [address] * (ABNORMAL) Differential, Automated (05/25/2016 4:47 AM EST) Neutrophil % 83.2 % [facility] Neutrophil Absolute 8.21(H) 1.70 - 6.10 x10(3)/mc L [facility] Lymph % 9.3 % [facility] Lymphocytes Abs 0.9 0.9 - 3.2 x10(3)/ L [facility] Monocyte % 5.4 % [facility] Monocyte Abs 0.5 0.3 - 0.9 x10(3)/[facility] Eos % 1.2 % [facility] Eosinophils Abs 0.1 0.0 - 0.4 x10(3)/[facility] Basophil % 0.4 % [facility] Baso Absolute 0.0 0.0 - 0.1 x10(3)/[facility] Immature Gran % 0.50 % [facility] Comment: Immature granulocytes(IG's)percentage and absolute count will include metamyelocytes, myelocytes, and promyelocytes. Blood smears from CBCs yielding IG's will be scanned manually for concordance. If this scan disagrees with the automated IG or if promyelocytes are noted, a manual differential will be performed. Immature Gran Absolute 0.05(H) 0.00 - 0.04 x10(3)/[facility] Blood specimen (specimen) 05/25/2016 4:47 AM EST 05/25/2016 4:59 AM EST Narrative Resulting Agency Comment Spec In Lab Que Amaro MD HEMATOLOGY ORD ERABLES Performing Organization Address City/State/[facility] Co de Phone Number [facility] [place] [address] * (ABNORMAL) Hemogram (05/25/2016 4:47 AM EST) White Blood Cell 9.9(H) 4.0 - 9.5 x10(3)/[facility] Red Blood Cell 4.35(L) 4.58 - 5.54 x10(6)/[facility] Hemoglobin 14.2 13.7 - 16.5 gm/dL [facility] Hematocrit 40.3(L) 40.5 - 48.5 % [facility] Mean Cell Volume 92.6 82.9 - 93.1 fL [facility] Mean Cell Hemoglobin 32.6(H) 27.5 - 32.1 pg [facility] Mean Cell Hemoglobin Concentration 35.2 32.0 - 35.7 gm/dL [facility] Platelet 247 145 - 357 x10(3)/mc L [facility] RDW Standard Deviation 42.3 36.0 - 45.0 fL [facility] RDW coefficient of variation 12.5 11.4 - 13.8 % [facility] Mean Platelet Volume 8.7 7.6 - 12.9 fL [facility] NRBC% auto 0.0 % [facility] NRBC Absolute 0.000 0.000 - 0.000 x10(3)/mc L [facility] Blood specimen (specimen) 05/25/2016 4:47 AM EST 05/25/2016 4:59 AM EST Narrative Resulting Agency Comment Spec In Lab Que Amaro MD HEMATOLOGY ORD ERABLES [facility] [place] [address] * (ABNORMAL) Differential, Automated (05/24/2016 4:45 AM EST) Neutrophil % 75.5 % [facility] Neutrophil Absolute 6.34(H) 1.70 - 6.10 x10(3)/mc L [facility] Lymph % 14.6 % [facility] Lymphocytes Abs 1.2 0.9 - 3.2 x10(3)/mc L [facility] Monocyte % 6.0 % [facility] Monocyte Abs 0.5 0.3 - 0.9 x10(3)/mc L [facility] Eos % 2.9 % [facility] Eosinophils Abs 0.2 0.0 - 0.4 x10(3)/mc L [facility] Basophil % 0.6 % [facility] Baso Absolute 0.0 0.0 - 0.1 x10(3)/[facility] Immature Gran % 0.40 % [facility] Comment: Immature granulocytes(IG's)percentage and absolute count will include metamyelocytes, myelocytes, and promyelocytes. Blood smears from CBCs yielding IG's will be scanned manually for concordance. If this scan disagrees with the automated IG or if promyelocytes are noted, a manual differential will be performed. Immature Gran Absolute 0.03 0.00 - 0.04 x10(3)/[facility] Blood specimen (specimen) 05/24/2016 4:45 AM EST 05/24/2016 5:06 AM EST Narrative Resulting Agency Comment Spec In Lab Que Amaro MD HEMATOLOGY ORD ERABLES Performing Organization Address City/State/[facility] Co de Phone Number [facility] [place] [address] * (ABNORMAL) Hemogram (05/24/2016 4:45 AM EST) White Blood Cell 8.4 4.0 - 9.5 x10(3)/[facility] Red Blood Cell 3.96(L) 4.58 - 5.54 x10(6)/[facility] Hemoglobin 12.7(L) 13.7 - 16.5 gm/dL [facility] Hematocrit 36.6(L) 40.5 - 48.5 % [facility] Mean Cell Volume 92.4 82.9 - 93.1 fL [facility] Mean Cell Hemoglobin 32.1 27.5 - 32.1 pg [facility] Mean Cell Hemoglobin Concentration 34.7 32.0 - 35.7 gm/dL [facility] Platelet 211 145 - 357 x10(3)/[facility] RDW Standard Deviation 42.5 36.0 - 45.0 fL [facility] RDW coefficient of variation 12.5 11.4 - 13.8 % [facility] Mean Platelet Volume 8.9 7.6 - 12.9 [facility] NRBC% auto 0.0 % [facility] NRBC Absolute 0.000 0.000 - 0.000 x10(3)/mc L [facility] Blood specimen (specimen) 05/24/2016 4:45 AM EST 05/24/2016 5:06 AM EST Narrative Resulting Agency Comment Spec In Lab Que Amaro MD HEMATOLOGY ORD ERABLES Performing Organization Address [facility] Co de Phone Number [facility] [place] [address] * (ABNORMAL) Magnesium (05/24/2016 4:45 AM EST) Magnesium 0.59(L) 0.69 - 1.07 mmol/L [facility] Blood specimen (specimen) 05/24/2016 4:45 AM EST 05/24/2016 5:06 AM EST Narrative Resulting Agency Comment Spec In Lab Que Amaro MD CHEMISTRY ORDBhargav JENNINGS Performing Organization Address [facility] Co de Phone Number [facility] [place] [address] * Phosphorus (05/24/2016 4:45 AM EST) Phosphorus 2.6 2.5 - 4.5 mg/dL [facility] Blood specimen (specimen) 05/24/2016 4:45 AM EST 05/24/2016 5:06 AM EST Narrative Resulting Agency Comment Spec In Lab Que Amaro MD CHEMISTRY ORDBhargav JENNINGS Performing Organization Address [facility] Co de Phone Number [facility] [place] [address] * Basic Metabolic Panel (non-fasting) (05/24/2016 4:45 AM EST) Glucose 128 65 - 199 mg/dL [facility] Comment:Diabetes: >=200 mg/d L plus symptoms Blood Urea Nitrogen 10 10 - 20 mg/dL [facility] Creatinine 1.04 0.80 - 1.50 mg/dL [facility] Comment: Please note that the pediatric reference intervals supplied above were not validated at [facility]. Results from pediatric patients should be interpreted in conjunction to the patient's age, height and muscle mass. Sodium 139 135 - 145 mmol/L [facility] Potassium 3.6 3.5 - 5.0 mmol/L [facility] Comment: Please note: ??Patients with WBC >100,000 may have falsely elevated Potassium levels. ??For accurate Potassium quantification in these patients send serum separator tube (gold top) for subsequent determinations. ??Contact the Clinical Chemistry Laboratory if there are any questions. Chloride 101 98 - 107 mmol/L [facility] Carbon Dioxide 25 22 - 31 mmol/L [facility] Anion Gap 13 5 - 15 mmol/L [facility] Calcium 8.5 8.5 - 10.5 mg/dL [facility] Est Glomerular Filtration Rate >60 >=60 [facility] Comment: This estimated [...] the following links into your internet browser. [email or web address] Blood specimen (specimen) 05/24/2016 4:45 AM EST 05/24/2016 5:06 AM EST Narrative Resulting Agency Comment Spec In Lab Que Amaro MD CHEMISTRY ORDBhargav JENNINGS Performing Organization Address City/[facility]/ZIP Co de Phone Number [facility] [place] [address] * Tacrolimus level (05/23/2016 7:50 AM EST) Pathologist [facility] Tacrolimus 5.4 ng/mL [facility] Comment: Trough therapeutic: ??5-15 ng/mL Performed by ultra-performance liquid chromatography tandem mass spectrometry (UPLCMS/MS). Blood specimen (specimen) 05/23/2016 7:50 AM EST 05/23/2016 11:06 AM EST Narrative Resulting Agency Comment Spec In Lab Que Amaro MD CHEMISTRY ORDBhargav JENNINGS Performing Organization Address [facility] Co de Phone Number [facility] [place] [address] * (ABNORMAL) Differential, Automated (05/23/2016 5:43 AM EST) Pathologist [facility] Neutrophil % 72.3 % [facility] Neutrophil Absolute 7.21(H) 1.70 - 6.10 x10(3)/mc L [facility] Lymph % 20.0 % [facility] Lymphocytes Abs 2.0 0.9 - 3.2 x10(3)/mc L [facility] Monocyte % 5.4 % [facility] Monocyte Abs 0.5 0.3 - 0.9 x10(3)/mc L [facility] Eos % 1.2 % [facility] Eosinophils Abs 0.1 0.0 - 0.4 x10(3)/mc L [facility] Basophil % 0.6 % [facility] Baso Absolute 0.1 0.0 - 0.1 x10(3)/mc L [facility] Immature Gran % 0.50 % [facility] Comment: Immature granulocytes(IG's)percentage and absolute count will include metamyelocytes, myelocytes, and promyelocytes. Blood smears from CBCs yielding IG's will be scanned manually for concordance. If this scan disagrees with the automated IG or if promyelocytes are noted, a manual differential will be performed. Immature Gran Absolute 0.05(H) 0.00 - 0.04 x10(3)/mc L [facility] Blood specimen (specimen) 05/23/2016 5:43 AM EST 05/23/2016 5:51 AM EST Narrative Resulting Agency Comment Spec In Lab Que Amaro MD HEMATOLOGY ORD ERABLES [facility] [place] [address] * (ABNORMAL) Hemogram (05/23/2016 5:43 AM EST) White Blood Cell 10.0(H) 4.0 - 9.5 x10(3)/ L [facility] Red Blood Cell 4.22(L) 4.58 - 5.54 x10(6)/ L [facility] Hemoglobin 13.9 13.7 - 16.5 gm/dL [facility] Hematocrit 40.7 40.5 - 48.5 % [facility] Mean Cell Volume 96.4(H) 82.9 - 93.1 fL [facility] Mean Cell Hemoglobin 32.9(H) 27.5 - 32.1 pg [facility] Mean Cell Hemoglobin Concentration 34.2 32.0 - 35.7 gm/dL [facility] Platelet 211 145 - 357 x10(3)/mc L [facility] RDW Standard Deviation 44.1 36.0 - 45.0 [facility] RDW coefficient of variation 12.5 11.4 - 13.8 % [facility] Mean Platelet Volume 8.9 7.6 - 12.9 [facility] NRBC% auto 0.0 % [facility] NRBC Absolute 0.000 0.000 - 0.000 x10(3)/ L [facility] Blood specimen (specimen) 05/23/2016 5:43 AM EST 05/23/2016 5:51 AM EST Narrative Resulting Agency Comment Spec In Lab Que Amaro MD HEMATOLOGY ORD ERABLES Performing Organization Address [facility] Co de Phone Number [facility] [place] [place] [address] * (ABNORMAL) Magnesium (05/23/2016 5:37 AM EST) Magnesium 0.55(L) 0.69 - 1.07 mmol/L [facility] Blood specimen (specimen) 05/23/2016 5:37 AM EST 05/23/2016 5:51 AM EST Narrative Resulting Agency Comment Spec In Lab Que Amaro MD CHEMISTRY ROCHELLE JENNINGS Performing Organization Address [facility] de Phone Number [facility] [place] [address] * (ABNORMAL) Phosphorus (05/23/2016 5:37 AM EST) Phosphorus 2.2(L) 2.5 - 4.5 mg/dL [facility] Blood specimen (specimen) 05/23/2016 5:37 AM EST 05/23/2016 5:51 AM EST Narrative Resulting Agency Comment Spec In Lab Que Amaro MD CHEMISTRY ROCHELLE JENNINGS Performing Organization Address [facility] Co de Phone Number [facility] [place] [address] * (ABNORMAL) Basic Metabolic Panel (non-fasting) (05/23/2016 5:37 AM EST) Glucose 136 65 - 199 mg/dL [facility] Comment:Diabetes: >=200 mg/d L plus symptoms Blood Urea Nitrogen 14 10 - 20 mg/dL [facility] Creatinine 1.24 0.80 - 1.50 mg/dL [facility] Comment: Please note that the pediatric reference intervals supplied above were not validated at [facility]. Results from pediatric patients should be interpreted in conjunction to the patient's age, height and muscle mass. Sodium 140 135 - 145 mmol/L [facility] Potassium 3.7 3.5 - 5.0 mmol/L [facility] Comment: Please note: ??Patients with WBC >100,000 may have falsely elevated Potassium levels. ??For accurate Potassium quantification in these patients send serum separator tube (gold top) for subsequent determinations. ??Contact the Clinical Chemistry Laboratory if there are any questions. Chloride 101 98 - 107 mmol/L [facility] Carbon Dioxide 25 22 - 31 mmol/L [facility] Anion Gap 14 5 - 15 mmol/L [facility] Calcium 8.9 8.5 - 10.5 mg/dL [facility] Est Glomerular Filtration Rate 58(L) >=60 [facility] Comment: This estimated [...] the following links into your internet browser. [email or web address] Blood specimen (specimen) 05/23/2016 5:37 AM EST 05/23/2016 5:51 AM EST Narrative Resulting Agency Comment Spec In Lab Que Amaro MD CHEMISTRY ROCHELLE JENNINGS [facility] [place] [address] * Vancomycin, trough (05/22/2016 7:29 AM EST) Vancomycin, Trough 17.4 mg/L [facility] Comment: Therapeutic range for complicated infections such as bacteremia, endocarditis, osteomyelitis, meningitis, and hospital-acquired pneumonia caused by S. aureus: 15-20 mg/L Therapeutic range for other indications: 10-15 mg/L Toxic: >25mg/L Reference: Vancomycin Therapeutic Monitoring: Review and Recommendations from the ASHP, IDSA and SIDP Task Force. ??Am J Health-Syst Pharm. 2009; 66:82-98 Blood specimen (specimen) 05/22/2016 7:29 AM EST 05/22/2016 8:02 AM EST Narrative Resulting Agency Comment Spec In Lab Que Amaro MD CHEMISTRY ROCHELLE JENNINGS [facility] [place] [address] * (ABNORMAL) Differential, Automated (05/22/2016 7:29 AM EST) Neutrophil % 81.7 % [facility] Neutrophil Absolute 8.59(H) 1.70 - 6.10 x10(3)/mc L [facility] Lymph % 11.3 % [facility] Lymphocytes Abs 1.2 0.9 - 3.2 x10(3)/mc L [facility] Monocyte % 6.3 % [facility] Monocyte Abs 0.7 0.3 - 0.9 x10(3)/mc L [facility] Eos % 0.1 % [facility] Eosinophils Abs 0.0 0.0 - 0.4 x10(3)/mc L [facility] Basophil % 0.2 % [facility] Baso Absolute 0.0 0.0 - 0.1 x10(3)/mc L [facility] Immature Gran % 0.40 % [facility] Comment: Immature granulocytes(IG's)percentage and absolute count will include metamyelocytes, myelocytes, and promyelocytes. Blood smears from CBCs yielding IG's will be scanned manually for concordance. If this scan disagrees with the automated IG or if promyelocytes are noted, a manual differential will be performed. Immature Gran Absolute 0.04 0.00 - 0.04 x10(3)/[facility] Blood specimen (specimen) 05/22/2016 7:29 AM EST 05/22/2016 8:02 AM EST Narrative Resulting Agency Comment Spec In Lab Que Amaro MD HEMATOLOGY ORD ERABLES Performing Organization Address City/State/[facility] Co de Phone Number [facility] [place] [address] * (ABNORMAL) Hemogram (05/22/2016 7:29 AM EST) White Blood Cell 10.5(H) 4.0 - 9.5 x10(3)/[facility] Red Blood Cell 3.92(L) 4.58 - 5.54 x10(6)/[facility] Hemoglobin 12.8(L) 13.7 - 16.5 gm/dL [facility] Hematocrit 36.7(L) 40.5 - 48.5 % [facility] Mean Cell Volume 93.6(H) 82.9 - 93.1 [facility] Mean Cell Hemoglobin 32.7(H) 27.5 - 32.1 pg [facility] Mean Cell Hemoglobin Concentration 34.9 32.0 - 35.7 gm/dL [facility] Platelet 210 145 - 357 x10(3)/[facility] RDW Standard Deviation 43.1 36.0 - 45.0 [facility] RDW coefficient of variation 12.5 11.4 - 13.8 % [facility] Mean Platelet Volume 8.9 7.6 - 12.9 [facility] NRBC% auto 0.0 % [facility] NRBC Absolute 0.000 0.000 - 0.000 x10(3)/[facility] Blood specimen (specimen) 05/22/2016 7:29 AM EST 05/22/2016 8:02 AM EST Narrative Resulting Agency Comment Spec In Lab Que Amaro MD HEMATOLOGY ORD ERABLES Performing Organization Address [facility] Co de Phone Number [facility] [place] [address] * (ABNORMAL) Magnesium (05/22/2016 7:29 AM EST) Magnesium 0.65(L) 0.69 - 1.07 mmol/L [facility] Blood specimen (specimen) 05/22/2016 7:29 AM EST 05/22/2016 8:02 AM EST Narrative Resulting Agency Comment Spec In Lab Que Amaro MD CHEMISTRY ROCHELLE JENNINGS Performing Organization Address [facility] Phone Number [facility] [place] [address] * Phosphorus (05/22/2016 7:29 AM EST) Phosphorus 2.6 2.5 - 4.5 mg/dL [facility] Blood specimen (specimen) 05/22/2016 7:29 AM EST 05/22/2016 8:02 AM EST Narrative Resulting Agency Comment Spec In Lab Que Amaro MD CHEMISTRY ROCHELLE JENNINGS Performing Organization Address [facility] de Phone Number [facility] [place] [address] * (ABNORMAL) Basic Metabolic Panel (non-fasting) (05/22/2016 7:29 AM EST) Glucose 159 65 - 199 mg/dL [facility] Comment:Diabetes: >=200 mg/d L plus symptoms Blood Urea Nitrogen 19 10 - 20 mg/dL [facility] Creatinine 1.37 0.80 - 1.50 mg/dL [facility] Comment: Please note that the pediatric reference intervals supplied above were not validated at [facility]. Results from pediatric patients should be interpreted in conjunction to the patient's age, height and muscle mass. Sodium 137 135 - 145 mmol/L [facility] Potassium 4.0 3.5 - 5.0 mmol/L [facility] Comment: Please note: ??Patients with WBC >100,000 may have falsely elevated Potassium levels. ??For accurate Potassium quantification in these patients send serum separator tube (gold top) for subsequent determinations. ??Contact the Clinical Chemistry Laboratory if there are any questions. Chloride 101 98 - 107 mmol/L [facility] Carbon Dioxide 22 22 - 31 mmol/L [facility] Anion Gap 14 5 - 15 mmol/L [facility] Calcium 8.9 8.5 - 10.5 mg/dL [facility] Est Glomerular Filtration Rate 52(L) >=60 [facility] Comment: This estimated [...] the following links into your internet browser. [email or web address] Blood specimen (specimen) 05/22/2016 7:29 AM EST 05/22/2016 8:02 AM EST Narrative Resulting Agency Comment Spec In Lab Que Amaro MD CHEMISTRY ROCHELLE JENNINGS [facility] [place] [address] * (ABNORMAL) Urinalysis with reflex Culture (05/21/2016 10:52 AM EST) Glucose, Urine Dipstick Negative Negative mg/dL [facility] Protein, Urine Dipstick 100(A) Negative mg/dL [facility] Bilirubin, Urine Dipstick Negative Negative mg/dL [facility] Comment: Clinical correlation required for positive Urine Bilirubin results as false positive may occur with some drugs and drug related products. If a false positive is suspected a serum total bilirubin should be considered if clinically indicated. Urobilinogen, Urine Dipstick Normal Normal mg/dL [facility] pH, Urn (dipstick) 6.0 5.0 - 8.0 [facility] Blood, Urine Dipstick Large(A) Negative mg/dL [facility] Ketone, Urine Dipstick Negative Negative mg/dL [facility] Nitrite, Urine Dipstick Negative Negative [facility] Leukocytes, Urine Dipstick Large(A) Negative [facility] Appearance, Urine Dipstick Clear Clear [facility] Specific [place] Urine Automated 1.021 1.002 - 1.030 [facility] Color, Urine Dipstick Yellow Yellow [facility] RBC, Urine 33(H) 0 - 3 /HPF [facility] WBC, Urine 25(H) 0 - 3 /HPF [facility] Bacteria, Urine Rare(A) None /HPF [facility] Squamous Epithelial Cells, Urine <1 <=4 /HPF [facility] Reflex to Culture Dup Culture [facility] Urine specimen obtained by clean catch procedure (specimen) 05/21/2016 10:52 AM EST 05/21/2016 10:59 AM EST Narrative Resulting Agency Comment Spec In Lab Que Amaro MD URINE ORDERABL ES [facility] [place] [address] * Urine culture Nephrostomy Urine (05/21/2016 10:51 AM EST) Urine Culture No growth (Less than 1,000 cfu/ml). [facility] Urine specimen obtained by clean catch procedure (specimen) 05/21/2016 10:51 AM EST 05/22/2016 4:32 PM EST Narrative Resulting Agency Comment Spec In Lab Que Amaro MD MICROBIOLOGY - GENERAL ORDERABLES Performing Organization Address [facility] Co de Phone Number [facility] [place] [address] * Tacrolimus level (05/21/2016 7:52 AM EST) Tacrolimus 6.6 ng/mL [facility] Comment: Trough therapeutic: ??5-15 ng/mL Performed by ultra-performance liquid chromatography tandem mass spectrometry (UPLCMS/MS). 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 check for stent placement TECHNIQUE: AP abdomen COMPARISON: March 25, 2016 FINDINGS: A percutaneous stent projects over the left iliac wing with tip projecting over the superior left sacroiliac joint, likely region of the transplant kidney pelvis. A second stent extends from the same region with distal end projecting over the expected region of the bladder. A surgical drain is in place with tip also projecting over the left sacrum. There is a normal bowel gas pattern. Visualized lung bases are clear. Epidural catheter is partially visualized. 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 check for stent placement TECHNIQUE: AP abdomen COMPARISON: March 25, 2016 FINDINGS: A percutaneous stent projects over the left iliac wing with tip projectingover the superior left sacroiliac joint, likely region of the transplantkidney pelvis. A second stent extends from the same region with distal endprojecting over the expected region of the bladder. A surgical drain is in place withtip also projecting over the left sacrum. There is a normal bowel gaspattern. Visualized lung bases are clear. Epidural catheter is partiallyvisualized. Que Amaro MD IMG DX ORDERAB LES * (ABNORMAL) Differential, Automated (05/21/2016 5:53 AM EST) Neutrophil % 90.9 % [facility] Neutrophil Absolute 10.31(H) 1.70 - 6.10 x10(3)/mc L [facility] Lymph % 4.5 % [facility] Lymphocytes Abs 0.5(L) 0.9 - 3.2 x10(3)/ L [facility] Monocyte % 4.0 % [facility] Monocyte Abs 0.4 0.3 - 0.9 x10(3)/ L [facility] Eos % 0.0 % [facility] Eosinophils Abs 0.0 0.0 - 0.4 x10(3)/ L [facility] Basophil % 0.2 % [facility] Baso Absolute 0.0 0.0 - 0.1 x10(3)/mc L [facility] Immature Gran % 0.40 % [facility] Comment: Immature granulocytes(IG's)percentage and absolute count will include metamyelocytes, myelocytes, and promyelocytes. Blood smears from CBCs yielding IG's will be scanned manually for concordance. If this scan disagrees with the automated IG or if promyelocytes are noted, a manual differential will be performed. Immature Gran Absolute 0.04 0.00 - 0.04 x10(3)/mc L [facility] Blood specimen (specimen) 05/21/2016 5:53 AM EST 05/21/2016 6:15 AM EST Narrative Resulting Agency Comment Spec In Lab Que Amaro MD HEMATOLOGY ORD MozillaBLES [facility] [place] [address] * (ABNORMAL) Hemogram (05/21/2016 5:53 AM EST) White Blood Cell 11.3(H) 4.0 - 9.5 x10(3)/mc L [facility] Red Blood Cell 4.15(L) 4.58 - 5.54 x10(6)/ L [facility] Hemoglobin 13.5(L) 13.7 - 16.5 gm/dL [facility] Hematocrit 37.8(L) 40.5 - 48.5 % [facility] Mean Cell Volume 91.1 82.9 - 93.1 [facility] Mean Cell Hemoglobin 32.5(H) 27.5 - 32.1 pg [facility] Mean Cell Hemoglobin Concentration 35.7 32.0 - 35.7 gm/dL [facility] Platelet 222 145 - 357 x10(3)/mc L [facility] RDW Standard Deviation 40.7 36.0 - 45.0 [facility] RDW coefficient of variation 12.2 11.4 - 13.8 % [facility] Mean Platelet Volume 8.8 7.6 - 12.9 [facility] NRBC% auto 0.0 % [facility] NRBC Absolute 0.000 0.000 - 0.000 x10(3)/ L [facility] Blood specimen (specimen) 05/21/2016 5:53 AM EST 05/21/2016 6:15 AM EST Narrative Resulting Agency Comment Spec In Lab Que Amaro MD HEMATOLOGY ORD MozillaBLES [facility] [place] [address] * (ABNORMAL) Magnesium (05/21/2016 5:53 AM EST) [facility] Magnesium 0.51(L) 0.69 - 1.07 mmol/L [facility] Blood specimen (specimen) 05/21/2016 5:53 AM EST 05/21/2016 6:15 AM EST Narrative Resulting Agency Comment Spec In Lab Que Amaro MD CHEMISTRY ORDBhargav SonicPollenLENORE Performing Organization Address [facility] Co de Phone Number [facility] [place] [address] * (ABNORMAL) Phosphorus (05/21/2016 5:53 AM EST) [facility] Phosphorus 2.4(L) 2.5 - 4.5 mg/dL [facility] Blood specimen (specimen) 05/21/2016 5:53 AM EST 05/21/2016 6:15 AM EST Narrative Resulting Agency Comment Spec In Lab Que Amaro MD CHEMISTRY ORDBhargav SonicPollenLENORE Performing Organization Address [facility] Co de Phone Number [facility] [place] [address] * (ABNORMAL) Basic Metabolic Panel (non-fasting) (05/21/2016 5:53 AM EST) [facility] Glucose 269(H) 65 - 199 mg/dL [facility] Comment:Diabetes: >=200 mg/d L plus symptoms Blood Urea Nitrogen 17 10 - 20 mg/dL [facility] Creatinine 1.27 0.80 - 1.50 mg/dL [facility] Comment: Please note that the pediatric reference intervals supplied above were not validated at [facility]. Results from pediatric patients should be interpreted in conjunction to the patient's age, height and muscle mass. Sodium 136 135 - 145 mmol/L [facility] Potassium 4.5 3.5 - 5.0 mmol/L [facility] Comment: Please note: ??Patients with WBC >100,000 may have falsely elevated Potassium levels. ??For accurate Potassium quantification in these patients send serum separator tube (gold top) for subsequent determinations. ??Contact the Clinical Chemistry Laboratory if there are any questions. Chloride 101 98 - 107 mmol/L [facility] Carbon Dioxide 18(L) 22 - 31 mmol/L [facility] Anion Gap 17(H) 5 - 15 mmol/L [facility] Calcium 8.4(L) 8.5 - 10.5 mg/dL [facility] Est Glomerular Filtration Rate 57(L) >=60 [facility] Comment: This estimated [...] the following links into your internet browser. [email or web address] Blood specimen (specimen) 05/21/2016 5:53 AM EST 05/21/2016 6:15 AM EST Narrative Resulting Agency Comment Spec In Lab Que Amaro MD CHEMISTRY ROCHELLE JENNINGS [facility] Organization Address City/State/[facility] Co de Phone Number [facility] [place] [address] * US Renal Transplant Left (05/20/2016 10:18 PM EST) Anatomical Region Laterality Modality Abdomen Left Ultrasound Narrative 05/27/2016 11:38 AM EST EXAMINATION: US RENAL TRANSPLANT LEFT CLINICAL HISTORY: history of left renal transplant, now s/p Boari flap (renal pelvis anastomosis to bladder). Intact perfusion? FINDINGS: 1. ??Flow is visualized within the mid and lower poles. 2. ??Normal to borderline elevated resistive indices. 3. ??No collecting system dilatation. 4. ??Stent visualized. I have personally reviewed the image(s) and the residents interpretation and agree with the findings, Kitty Valencia at 05/21/2016 10:50 AM I have personally reviewed the image(s) and the residents interpretation and agree with the findings, Kitty Valencia at 05/27/2016 11:38 AM Procedure Note Kitty Valencia MD - 05/27/2016 EXAMINATION: US RENAL TRANSPLANT LEFT CLINICAL HISTORY: history of left renal transplant, now s/p Boari flap(renal pelvis anastomosis to bladder). Intact perfusion? FINDINGS: 1. Flow is visualized within the mid and lower poles. 2. Normal to borderline elevated resistive indices. 3. No collecting system dilatation. 4. Stent visualized. I have personally reviewed the image(s) and the residents interpretationand agree with the findings, Kitty Valencia at 05/21/2016 10:50 AM I have personally reviewed the image(s) and the residents interpretationand agree with the findings, Kitty Valencia at 05/27/2016 11:38 AM Que Amaro MD IMG US GEN ORD ERABLES * (ABNORMAL) Differential, Automated (05/20/2016 10:15 PM EST) Neutrophil % 92.5 % [facility] Neutrophil Absolute 9.41(H) 1.70 - 6.10 x10(3)/mc L [facility] Lymph % 4.3 % [facility] Lymphocytes Abs 0.4(L) 0.9 - 3.2 x10(3)/mc L [facility] Monocyte % 2.3 % [facility] Monocyte Abs 0.2(L) 0.3 - 0.9 x10(3)/mc L [facility] Eos % 0.1 % [facility] Eosinophils Abs 0.0 0.0 - 0.4 x10(3)/mc L [facility] Basophil % 0.3 % [facility] Baso Absolute 0.0 0.0 - 0.1 x10(3)/mc L [facility] Immature Gran % 0.50 % [facility] Comment: Immature granulocytes(IG's)percentage and absolute count will include metamyelocytes, myelocytes, and promyelocytes. Blood smears from CBCs yielding IG's will be scanned manually for concordance. If this scan disagrees with the automated IG or if promyelocytes are noted, a manual differential will be performed. Immature Gran Absolute 0.05(H) 0.00 - 0.04 x10(3)/mc L [facility] Blood specimen (specimen) 05/20/2016 10:15 PM EST 05/20/2016 10:25 PM EST Narrative Resulting Agency Comment Spec In Lab Que Amaro MD HEMATOLOGY ORD ERABLES [facility] [place] [address] * (ABNORMAL) Hemogram (05/20/2016 10:15 PM EST) White Blood Cell 10.2(H) 4.0 - 9.5 x10(3)/ L [facility] Red Blood Cell 4.36(L) 4.58 - 5.54 x10(6)/mc L [facility] Hemoglobin 13.9 13.7 - 16.5 gm/dL [facility] Hematocrit 40.6 40.5 - 48.5 % [facility] Mean Cell Volume 93.1 82.9 - 93.1 fL [facility] Mean Cell Hemoglobin 31.9 27.5 - 32.1 pg [facility] Mean Cell Hemoglobin Concentration 34.2 32.0 - 35.7 gm/dL [facility] Platelet 214 145 - 357 x10(3)/mc L [facility] RDW Standard Deviation 42.1 36.0 - 45.0 fL [facility] RDW coefficient of variation 12.2 11.4 - 13.8 % [facility] Mean Platelet Volume 8.7 7.6 - 12.9 fL [facility] NRBC% auto 0.0 % [facility] NRBC Absolute 0.000 0.000 - 0.000 x10(3)/mc L [facility] Blood specimen (specimen) 05/20/2016 10:15 PM EST 05/20/2016 10:25 PM EST Narrative Resulting Agency Comment Spec In Lab Que Amaro MD HEMATOLOGY ORD ERABLES Performing Organization Address City/[facility]/ZIP Co de Phone Number [facility] [place] [address] * Lactate, whole blood, send to lab (05/20/2016 10:15 PM EST) Lactate WB 1.4 0.5 - 2.2 mmol/L [facility] Blood specimen (specimen) 05/20/2016 10:15 PM EST 05/20/2016 10:25 PM EST Narrative Resulting Agency Comment Spec In Lab Que Amaro MD CHEMISTRY ROCHELLE JENNINGS Performing Organization Address [facility] Co de Phone Number [facility] [place] [address] * Phosphorus (05/20/2016 10:15 PM EST) Phosphorus 3.0 2.5 - 4.5 mg/dL [facility] Blood specimen (specimen) 05/20/2016 10:15 PM EST 05/20/2016 10:25 PM EST Narrative Resulting Agency Comment Spec In Lab Que Amaro MD CHEMISTRY ORDBhargav JENNINGS Performing Organization Address City/[facility] Co de Phone Number [facility] [place] [address] * (ABNORMAL) Magnesium (05/20/2016 10:15 PM EST) Magnesium 0.51(L) 0.69 - 1.07 mmol/L [facility] Blood specimen (specimen) 05/20/2016 10:15 PM EST 05/20/2016 10:25 PM EST Narrative Resulting Agency Comment Spec In Lab Que Amaro MD CHEMISTRY ROCHELLE JENNINGS [facility] [place] [address] * (ABNORMAL) BMP w/fasting Glucose (05/20/2016 10:15 PM EST) Glucose Fasting 254(H) 65 - 99 mg/dL [facility] Comment: ?Fasting* Glucose Interpretive Criteria [...] of Diabetes Mellitus, Position Statement from the [place] [employer]. ??Diabetes Care, Volume 33, Supplement 1, Jul 2009 Blood Urea Nitrogen 16 10 - 20 mg/dL [facility] Creatinine 1.21 0.80 - 1.50 mg/dL [facility] Comment: Please note that the pediatric reference intervals supplied above were not validated at [facility]. Results from pediatric patients should be interpreted in conjunction to the patient's age, height and muscle mass. Sodium 138 135 - 145 mmol/L [facility] Potassium 4.3 3.5 - 5.0 mmol/L [facility] Comment: Please note: ??Patients with WBC >100,000 may have falsely elevated Potassium levels. ??For accurate Potassium quantification in these patients send serum separator tube (gold top) for subsequent determinations. ??Contact the Clinical Chemistry Laboratory if there are any questions. Chloride 104 98 - 107 mmol/L [facility] Carbon Dioxide 20(L) 22 - 31 mmol/L [facility] Anion Gap 14 5 - 15 mmol/L [facility] Calcium 8.4(L) 8.5 - 10.5 mg/dL [facility] Est Glomerular Filtration Rate 60 >=60 [facility] Comment: This estimated [...] the following links into your internet browser. [email or web address] Blood specimen (specimen) 05/20/2016 10:15 PM EST 05/20/2016 10:25 PM EST Narrative Resulting Agency Comment Spec In Lab Que Amaro MD CHEMISTRY [facility]argav [facility] Performing Organization Address [facility] Co de Phone Number [facility] [place] [address] * Specimen to Pathology (surgical or derm) (05/20/2016 7:38 PM EST) AP Specimen 05/20/2016 7:38 PM EST 05/20/2016 7:38 PM EST Narrative [facility] - 05/20/2016 7:38 PM EST Specimen requisition ordered. ??Separate Pathology report to follow Que Amaro MD PATHOLOGY/CYTO LOGY ORDERABLES Performing Organization Address [facility] Co de Phone Number [facility] [place] [address] * (ABNORMAL) POCT Glucose (05/20/2016 7:32 PM EST) Glucose, POC 204(H) 65 - 199 mg/dL [facility] Comment: Supplemental ranges: <140 mg/dL before meals <180 mg/dL all other times of the day Blood specimen (specimen) 05/20/2016 7:32 PM EST 05/20/2016 7:32 PM EST Que Amaro MD POINT OF CARE TEST ORDERABLES Performing Organization Address [facility] Co de Phone Number [facility] [place] [address] * (ABNORMAL) POCT Glucose (05/20/2016 7:30 PM EST) Glucose, POC 220(H) 65 - 199 mg/dL [facility] Comment: Supplemental ranges: <140 mg/dL before meals <180 mg/dL all other times of the day Blood specimen (specimen) 05/20/2016 7:30 PM EST 05/20/2016 7:30 PM EST Que Amaro MD POINT OF CARE TEST ORDERABLES Performing Organization Address [facility] Co de Phone Number [facility] [place] [address] * Specimen to Pathology (surgical or derm) (05/20/2016 7:25 PM EST) AP Specimen 05/20/2016 7:25 PM EST 05/20/2016 7:25 PM EST Narrative [facility] - 05/20/2016 7:25 PM EST Specimen requisition ordered. ??Separate Pathology report to follow Que Amaro MD PATHOLOGY/CYTO LOGY ORDERABLES Performing Organization Address [facility] [place] [place] [address] * Surgical Pathology Report (05/20/2016 7:23 PM EST) Final Diagnosis [id number] ?Location: [facility]; 0423; A The signing pathologist has (i) examined the relevant preparation(s) for the specimen(s) and (ii) rendered or confirmed the diagnosis(es). . 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 ?2. No evidence of viral inclusions. B - [place] left ureter: ?1. Benign ureter. ?2. No evidence of viral inclusions. CR-0 Electronically signed by: ??Nba GERBER, Judson Dougherty Verified: ??05/23/2016 ?Pathologist ADDITIONAL STUDIES Formalin-fixed, paraffin-embedded tissue sections are studied using the [employer] system technique with appropriate positive and negative controls. Block ? Antibody ?Result (Degree of immunoreactivity) A-1 ?Polyoma Virus ?Negative A-2 ?Polyoma Virus ?Negative IHC studies provide the pathologist with adjunctive diagnostic information. Antibody specificity has been verified by testing antibodies on a series of in-house tissues with known immunohistochemical performance characteristics. The clinical interpretation of any antibody positive staining or its absence is evaluated within the context of clinical presentation, morphology, ??histopathological criteria and other diagnostic tests. CLINICAL INFORMATION Specimen Submitted: A - Left transplant kidney ureter B - [place] left ureter Clinical History: Left ureteral stricture Clinical Diagnosis: Same SPECIMEN PROCESSING A - ??Labeled/Fixative: Left transplant kidney ureter, fresh. Quantity/Size: Single, 2.6 x 1.5 x 1.2 cm. Tissue Description: Tubular portion of pink-oro tissue. ??One end of the specimen is opened and the opposite end is closed and marked with an undesignated suture. Sectioning reveals a thickened wall measuring up to 0.4 cm and a stellate lumen. The mucosa is glistening, pink-oro. Sections/Processing: (1) Sections from the ends of the specimen; (2) central cross- sections. ??(R2) B - ??Labeled/Fixative: [place] left ureter, fresh. Quantity/Size: Single, 8.2 x 0.4 x 0.4 cm. Tissue Description: Unoriented segment of ureter. ??The wall averages 0.2 cm in thickness. there is a stellate lumen. ??The mucosa is glistening pink-oro. . SPECIMEN PROCESSING Sections/Processing: (1) Sections from the ends of the specimen; (2) additional central cross sections. ??(R2) ??ejr 05/23/2016 9:45 AM EST [facility] URETERIC STRUCTURE / Unknown 05/20/2016 7:23 PM EST 05/20/2016 7:23 PM EST URETERIC STRUCTURE / Unknown 05/20/2016 7:23 PM EST 05/20/2016 7:23 PM EST Que Amaro MD PATHOLOGY/CYTO LOGY ORDERABLES Performing Organization Address [facility]/ZIP Co de Phone Number [facility] [place] [address] * XR Fluoro No Rad <1Hr (05/20/2016 1:59 PM EST) Narrative RAD - 05/20/2016 1:59 PM EST This order does not need a radiologist interpretation. ?? Que Amaro MD IMG FLUORO ORD ERABLES Performing Organization Address City/[facility]/ZIP Co de Phone Number [place], [place] * Differential, Automated (05/20/2016 5:47 AM EST) Neutrophil % 72.4 % [facility] Neutrophil Absolute 5.83 1.70 - 6.10 x10(3)/[facility] Lymph % 15.8 % [facility] Lymphocytes Abs 1.3 0.9 - 3.2 x10(3)/[facility] Monocyte % 6.1 % [facility] Monocyte Abs 0.5 0.3 - 0.9 x10(3)/[facility] Eos % 4.1 % [facility] Eosinophils Abs 0.3 0.0 - 0.4 x10(3)/[facility] Basophil % 1.1 % [facility] Baso Absolute 0.1 0.0 - 0.1 x10(3)/[facility] Immature Gran % 0.50 % [facility] Comment: Immature granulocytes(IG's)percentage and absolute count will include metamyelocytes, myelocytes, and promyelocytes. Blood smears from CBCs yielding IG's will be scanned manually for concordance. If this scan disagrees with the automated IG or if promyelocytes are noted, a manual differential will be performed. Immature Gran Absolute 0.04 0.00 - 0.04 x10(3)/[facility] Blood specimen (specimen) 05/20/2016 5:47 AM EST 05/20/2016 5:58 AM EST Narrative Resulting Agency Comment Spec In Lab Que Amaro MD HEMATOLOGY ORD ERABLES [facility] [place] [address] * (ABNORMAL) Hemogram (05/20/2016 5:47 AM EST) White Blood Cell 8.0 4.0 - 9.5 x10(3)/ L [facility] Red Blood Cell 4.41(L) 4.58 - 5.54 x10(6)/ L [facility] Hemoglobin 14.1 13.7 - 16.5 gm/dL [facility] Hematocrit 40.0(L) 40.5 - 48.5 % [facility] Mean Cell Volume 90.7 82.9 - 93.1 fL [facility] Mean Cell Hemoglobin 32.0 27.5 - 32.1 pg [facility] Mean Cell Hemoglobin Concentration 35.3 32.0 - 35.7 gm/dL [facility] Platelet 214 145 - 357 x10(3)/ L [facility] RDW Standard Deviation 39.4 36.0 - 45.0 [facility] RDW coefficient of variation 11.9 11.4 - 13.8 % [facility] Mean Platelet Volume 8.6 7.6 - 12.9 [facility] NRBC% auto 0.0 % [facility] NRBC Absolute 0.000 0.000 - 0.000 x10(3)/mc L [facility] Blood specimen (specimen) 05/20/2016 5:47 AM EST 05/20/2016 5:58 AM EST Narrative Resulting Agency Comment Spec In Lab Que Amaro MD HEMATOLOGY ORD ERABLES Performing Organization Address [facility] Co de Phone Number [facility] [place] [place] [address] * (ABNORMAL) Magnesium (05/20/2016 5:47 AM EST) Magnesium 0.55(L) 0.69 - 1.07 mmol/L [facility] Blood specimen (specimen) 05/20/2016 5:47 AM EST 05/20/2016 5:58 AM EST Narrative Resulting Agency Comment Spec In Lab Que Amaro MD CHEMISTRY ORDBhargav JENNINGS Performing Organization Address [facility] Co de Phone Number [facility] [place] [place] [address] * (ABNORMAL) Phosphorus (05/20/2016 5:47 AM EST) Phosphorus 2.4(L) 2.5 - 4.5 mg/dL [facility] Blood specimen (specimen) 05/20/2016 5:47 AM EST 05/20/2016 5:58 AM EST Narrative Resulting Agency Comment Spec In Lab Que Amaro MD CHEMISTRY ORDBhargav JENNINGS Performing Organization Address [facility] Co de Phone Number [facility] [place] [address] * Basic Metabolic Panel (non-fasting) (05/20/2016 5:47 AM EST) Glucose 150 65 - 199 mg/dL [facility] Comment:Diabetes: >=200 mg/d L plus symptoms Blood Urea Nitrogen 12 10 - 20 mg/dL [facility] Creatinine 1.14 0.80 - 1.50 mg/dL [facility] Comment: Please note that the pediatric reference intervals supplied above were not validated at [facility]. Results from pediatric patients should be interpreted in conjunction to the patient's age, height and muscle mass. Sodium 138 135 - 145 mmol/L [facility] Potassium 3.5 3.5 - 5.0 mmol/L [facility] Comment: Please note: ??Patients with WBC >100,000 may have falsely elevated Potassium levels. ??For accurate Potassium quantification in these patients send serum separator tube (gold top) for subsequent determinations. ??Contact the Clinical Chemistry Laboratory if there are any questions. Chloride 100 98 - 107 mmol/L [facility] Carbon Dioxide 24 22 - 31 mmol/L [facility] Anion Gap 14 5 - 15 mmol/L [facility] Calcium 9.0 8.5 - 10.5 mg/dL [facility] Est Glomerular Filtration Rate >60 >=60 [facility] Comment: This estimated [...] the following links into your internet browser. [email or web address] Blood specimen (specimen) 05/20/2016 5:47 AM EST 05/20/2016 5:58 AM EST Narrative Resulting Agency Comment Spec In Lab Que Amaro MD CHEMISTRY ORDE KORYLENORE Performing Organization Address [facility] de Phone Number [facility] [place] [address] * Tacrolimus level (05/19/2016 8:00 AM EST) Tacrolimus 8.1 ng/mL [facility] Comment: Trough therapeutic: ??5-15 ng/mL Performed by ultra-performance liquid chromatography tandem mass spectrometry (UPLCMS/MS). Blood specimen (specimen) 05/19/2016 8:00 AM EST 05/19/2016 10:28 AM EST Narrative Resulting Agency Comment Spec In Lab Que Amaro MD CHEMISTRY ORDBhargav JENNINGS Performing Organization Address [facility] Phone Number [facility] [place] [address] * Antibody screen (05/19/2016 4:17 AM EST) Ab Screen Interp Negative [facility] Expires at [id number] on: 05/22/2016 [facility] Blood specimen (specimen) 05/19/2016 4:17 AM EST 05/19/2016 4:33 AM EST Narrative Resulting Agency Comment Spec In Lab Que Amaro MD BLOOD BANK LAB ORDERABLES Performing Organization Address [facility] de Phone Number [facility] [place] [address] * ABO/Rh Typing (05/19/2016 4:17 AM EST) ABORH Type AB Pos [facility] Blood specimen (specimen) 05/19/2016 4:17 AM EST 05/19/2016 4:33 AM EST Narrative Resulting Agency Comment Spec In Lab Que Amaro MD BLOOD BANK LAB ORDERABLES [facility] [place] [address] * Prothrombin Time (05/19/2016 4:17 AM EST) Prothrombin Time 13.3 12.0 - 15.0 sec [facility] Comment: An INR <2.0 indicates [...] depending on clinical circumstances. International Normalization Ratio 1.0 0.9 - 1.1 [facility] Blood specimen (specimen) 05/19/2016 4:17 AM EST 05/19/2016 4:35 AM EST Narrative Resulting Agency Comment Spec In Lab Que Amaro MD HEMATOLOGY ORD ERABLES [facility] [place] [address] * Differential, Automated (05/19/2016 4:17 AM EST) Pathologist [facility] Neutrophil % 69.8 % [facility] Neutrophil Absolute 5.19 1.70 - 6.10 x10(3)/[facility] Lymph % 18.5 % [facility] Lymphocytes Abs 1.4 0.9 - 3.2 x10(3)/[facility] Monocyte % 6.2 % [facility] Monocyte Abs 0.5 0.3 - 0.9 x10(3)/[facility] Eos % 3.9 % [facility] Eosinophils Abs 0.3 0.0 - 0.4 x10(3)/[facility] Basophil % 1.1 % [facility] Baso Absolute 0.1 0.0 - 0.1 x10(3)/[facility] Immature Gran % 0.50 % [facility] Comment: Immature granulocytes(IG's)percentage and absolute count will include metamyelocytes, myelocytes, and promyelocytes. Blood smears from CBCs yielding IG's will be scanned manually for concordance. If this scan disagrees with the automated IG or if promyelocytes are noted, a manual differential will be performed. Immature Gran Absolute 0.04 0.00 - 0.04 x10(3)/mcL [facility] Blood specimen (specimen) 05/19/2016 4:17 AM EST 05/19/2016 4:35 AM EST Narrative Resulting Agency Comment Spec In Lab Que Amaro MD HEMATOLOGY ORD ERABLES [facility] [place] [address] * (ABNORMAL) Hemogram (05/19/2016 4:17 AM EST) White Blood Cell 7.4 4.0 - 9.5 x10(3)/mc L [facility] Red Blood Cell 4.43(L) 4.58 - 5.54 x10(6)/mc L [facility] Hemoglobin 14.2 13.7 - 16.5 gm/dL [facility] Hematocrit 40.2(L) 40.5 - 48.5 % [facility] Mean Cell Volume 90.7 82.9 - 93.1 fL [facility] Mean Cell Hemoglobin 32.1 27.5 - 32.1 pg [facility] Mean Cell Hemoglobin Concentration 35.3 32.0 - 35.7 gm/dL [facility] Platelet 192 145 - 357 x10(3)/mc L [facility] RDW Standard Deviation 39.8 36.0 - 45.0 [facility] RDW coefficient of variation 11.9 11.4 - 13.8 % [facility] Mean Platelet Volume 8.9 7.6 - 12.9 fL [facility] NRBC% auto 0.0 % [facility] NRBC Absolute 0.000 0.000 - 0.000 x10(3)/mc L [facility] Blood specimen (specimen) 05/19/2016 4:17 AM EST 05/19/2016 4:35 AM EST Narrative Resulting Agency Comment Spec In Lab Que Amaro MD HEMATOLOGY ORD ERABLES Performing Organization Address [facility] Co de Phone Number [facility] [place] [address] * (ABNORMAL) Magnesium (05/19/2016 4:17 AM EST) Magnesium 0.68(L) 0.69 - 1.07 mmol/L [facility] Blood specimen (specimen) 05/19/2016 4:17 AM EST 05/19/2016 4:35 AM EST Narrative Resulting Agency Comment Spec In Lab Que Amaro MD CHEMISTRY ORDBhargav JENNINGS Performing Organization Address [facility] Co de Phone Number [facility] [place] [address] * (ABNORMAL) Phosphorus (05/19/2016 4:17 AM EST) Phosphorus 2.4(L) 2.5 - 4.5 mg/dL [facility] Blood specimen (specimen) 05/19/2016 4:17 AM EST 05/19/2016 4:35 AM EST Narrative Resulting Agency Comment Spec In Lab Que Amaro MD CHEMISTRY ORDBhargav JENNINGS Performing Organization Address [facility] Co de Phone Number [facility] [place] [address] * (ABNORMAL) Basic Metabolic Panel (non-fasting) (05/19/2016 4:17 AM EST) Glucose 166 65 - 199 mg/dL [facility] Comment:Diabetes: >=200 mg/d L plus symptoms Blood Urea Nitrogen 11 10 - 20 mg/dL [facility] Creatinine 1.09 0.80 - 1.50 mg/dL [facility] Comment: Please note that the pediatric reference intervals supplied above were not validated at [facility]. Results from pediatric patients should be interpreted in conjunction to the patient's age, height and muscle mass. Sodium 140 135 - 145 mmol/L [facility] Potassium 3.9 3.5 - 5.0 mmol/L [facility] Comment: Please note: ??Patients with WBC >100,000 may have falsely elevated Potassium levels. ??For accurate Potassium quantification in these patients send serum separator tube (gold top) for subsequent determinations. ??Contact the Clinical Chemistry Laboratory if there are any questions. Chloride 99 98 - 107 mmol/L [facility] Carbon Dioxide 25 22 - 31 mmol/L [facility] Anion Gap 16(H) 5 - 15 mmol/L [facility] Calcium 9.0 8.5 - 10.5 mg/dL [facility] Est Glomerular Filtration Rate >60 >=60 [facility] Comment: This estimated [...] the following links into your internet browser. [email or web address] Blood specimen (specimen) 05/19/2016 4:17 AM EST 05/19/2016 4:35 AM EST Narrative Resulting Agency Comment Spec In Lab Que Amaro MD CHEMISTRY ROCHELLE JENNINGS [facility] Organization Address City/State/ZIP Co de Phone Number [facility] [place] [address] * Differential, Automated (05/18/2016 5:54 AM EST) Pathologist [facility] Neutrophil % 69.2 % [facility] Neutrophil Absolute 5.48 1.70 - 6.10 x10(3)/[facility] Lymph % 18.5 % [facility] Lymphocytes Abs 1.5 0.9 - 3.2 x10(3)/[facility] Monocyte % 6.6 % [facility] Monocyte Abs 0.5 0.3 - 0.9 x10(3)/[facility] Eos % 4.3 % [facility] Eosinophils Abs 0.3 0.0 - 0.4 x10(3)/[facility] Basophil % 1.1 % [facility] Baso Absolute 0.1 0.0 - 0.1 x10(3)/[facility] Immature Gran % 0.30 % [facility] Comment: Immature granulocytes(IG's)percentage and absolute count will include metamyelocytes, myelocytes, and promyelocytes. Blood smears from CBCs yielding IG's will be scanned manually for concordance. If this scan disagrees with the automated IG or if promyelocytes are noted, a manual differential will be performed. Immature Gran Absolute 0.02 0.00 - 0.04 x10(3)/[facility] Blood specimen (specimen) 05/18/2016 5:54 AM EST 05/18/2016 6:00 AM EST Narrative Resulting Agency Comment Spec In Lab Que Amaro MD HEMATOLOGY ORD ERABLES [facility] [place] [address] * (ABNORMAL) Hemogram (05/18/2016 5:54 AM EST) Pathologist [facility] White Blood Cell 7.9 4.0 - 9.5 x10(3)/mc L [facility] Red Blood Cell 4.51(L) 4.58 - 5.54 x10(6)/mc L [facility] Hemoglobin 14.4 13.7 - 16.5 gm/dL [facility] Hematocrit 40.5 40.5 - 48.5 % [facility] Mean Cell Volume 89.8 82.9 - 93.1 fL [facility] Mean Cell Hemoglobin 31.9 27.5 - 32.1 pg [facility] Mean Cell Hemoglobin Concentration 35.6 32.0 - 35.7 gm/dL [facility] Platelet 205 145 - 357 x10(3)/mc L [facility] RDW Standard Deviation 39.8 36.0 - 45.0 fL [facility] RDW coefficient of variation 12.1 11.4 - 13.8 % [facility] Mean Platelet Volume 8.7 7.6 - 12.9 fL [facility] NRBC% auto 0.0 % [facility] NRBC Absolute 0.000 0.000 - 0.000 x10(3)/mc L [facility] Blood specimen (specimen) 05/18/2016 5:54 AM EST 05/18/2016 6:00 AM EST Narrative Resulting Agency Comment Spec In Lab Que Amaro MD HEMATOLOGY ORD ERABLES Performing Organization Address City/[facility]/[place] [address] * (ABNORMAL) Magnesium (05/18/2016 5:54 AM EST) Magnesium 0.68(L) 0.69 - 1.07 mmol/L [facility] Blood specimen (specimen) 05/18/2016 5:54 AM EST 05/18/2016 6:00 AM EST Narrative Resulting Agency Comment Spec In Lab Que Amaro MD CHEMISTRY ORDBhargav JENNINGS [facility] [place] [address] * Phosphorus (05/18/2016 5:54 AM EST) Phosphorus 2.8 2.5 - 4.5 mg/dL [facility] Blood specimen (specimen) 05/18/2016 5:54 AM EST 05/18/2016 6:00 AM EST Narrative Resulting Agency Comment Spec In Lab Que Amaro MD CHEMISTRY ROCHELLE JENNINGS [facility] [place] [address] * Basic Metabolic Panel (non-fasting) (05/18/2016 5:54 AM EST) Glucose 168 65 - 199 mg/dL [facility] Comment:Diabetes: >=200 mg/d L plus symptoms Blood Urea Nitrogen 11 10 - 20 mg/dL [facility] Creatinine 1.15 0.80 - 1.50 mg/dL [facility] Comment: Please note that the pediatric reference intervals supplied above were not validated at [facility]. Results from pediatric patients should be interpreted in conjunction to the patient's age, height and muscle mass. Sodium 139 135 - 145 mmol/L [facility] Potassium 3.5 3.5 - 5.0 mmol/L [facility] Comment: Please note: ??Patients with WBC >100,000 may have falsely elevated Potassium levels. ??For accurate Potassium quantification in these patients send serum separator tube (gold top) for subsequent determinations. ??Contact the Clinical Chemistry Laboratory if there are any questions. Chloride 98 98 - 107 mmol/L [facility] Carbon Dioxide 27 22 - 31 mmol/L [facility] Anion Gap 14 5 - 15 mmol/L [facility] Calcium 9.1 8.5 - 10.5 mg/dL [facility] Est Glomerular Filtration Rate >60 >=60 [facility] Comment: This estimated [...] the following links into your internet browser. [email or web address] Blood specimen (specimen) 05/18/2016 5:54 AM EST 05/18/2016 6:00 AM EST Narrative Resulting Agency Comment Spec In Lab Que Amaro MD CHEMISTRY ROCHELLE JENNINGS Performing Organization Address [facility] de Phone Number [facility] [place] [address] * Vancomycin, trough (05/17/2016 5:35 AM EST) Vancomycin, Trough 16.2 mg/L [facility] Comment: Therapeutic range for complicated infections such as bacteremia, endocarditis, osteomyelitis, meningitis, and hospital-acquired pneumonia caused by S. aureus: 15-20 mg/L Therapeutic range for other indications: 10-15 mg/L Toxic: >25mg/L Reference: Vancomycin Therapeutic Monitoring: Review and Recommendations from the ASHP, IDSA and SIDP Task Force. ??Am J Health-Syst Pharm. 2009; 66:82-98 Blood specimen (specimen) 05/17/2016 5:35 AM EST 05/17/2016 5:42 AM EST Narrative Resulting Agency Comment Spec In Lab Que Amaro MD CHEMISTRY ROCHELLE JENNINGS Performing Organization Address [facility] Co de Phone Number [facility] [place] [address] * Differential, Automated (05/17/2016 5:35 AM EST) Neutrophil % 64.3 % [facility] Neutrophil Absolute 4.39 1.70 - 6.10 x10(3)/mcL [facility] Lymph % 20.2 % [facility] Lymphocytes Abs 1.4 0.9 - 3.2 x10(3)/[facility] Monocyte % 8.3 % [facility] Monocyte Abs 0.6 0.3 - 0.9 x10(3)/[facility] Eos % 5.7 % [facility] Eosinophils Abs 0.4 0.0 - 0.4 x10(3)/[facility] Basophil % 1.2 % [facility] Baso Absolute 0.1 0.0 - 0.1 x10(3)/[facility] Immature Gran % 0.30 % [facility] Comment: Immature granulocytes(IG's)percentage and absolute count will include metamyelocytes, myelocytes, and promyelocytes. Blood smears from CBCs yielding IG's will be scanned manually for concordance. If this scan disagrees with the automated IG or if promyelocytes are noted, a manual differential will be performed. Immature Gran Absolute 0.02 0.00 - 0.04 x10(3)/[facility] Blood specimen (specimen) 05/17/2016 5:35 AM EST 05/17/2016 5:42 AM EST Narrative Resulting Agency Comment Spec In Lab Que Amaro MD HEMATOLOGY ORD ERABLES [facility] [place] [address] * (ABNORMAL) Hemogram (05/17/2016 5:35 AM EST) White Blood Cell 6.8 4.0 - 9.5 x10(3)/mc L [facility] Red Blood Cell 4.38(L) 4.58 - 5.54 x10(6)/mc L [facility] Hemoglobin 14.2 13.7 - 16.5 gm/dL [facility] Hematocrit 39.4(L) 40.5 - 48.5 % [facility] Mean Cell Volume 90.0 82.9 - 93.1 fL [facility] Mean Cell Hemoglobin 32.4(H) 27.5 - 32.1 pg [facility] Mean Cell Hemoglobin Concentration 36.0(H) 32.0 - 35.7 gm/dL [facility] Platelet 213 145 - 357 x10(3)/mc L [facility] RDW Standard Deviation 40.2 36.0 - 45.0 fL [facility] RDW coefficient of variation 12.2 11.4 - 13.8 % [facility] Mean Platelet Volume 8.7 7.6 - 12.9 [facility] NRBC% auto 0.0 % [facility] NRBC Absolute 0.000 0.000 - 0.000 x10(3)/mc L [facility] Blood specimen (specimen) 05/17/2016 5:35 AM EST 05/17/2016 5:42 AM EST Narrative Resulting Agency Comment Spec In Lab Que Amaro MD HEMATOLOGY STEVE LINARES Performing Organization Address City/[facility] Co de Phone Number [facility] [place] [address] * Magnesium (05/17/2016 5:35 AM EST) Magnesium 0.73 0.69 - 1.07 mmol/L [facility] Blood specimen (specimen) 05/17/2016 5:35 AM EST 05/17/2016 5:42 AM EST Narrative Resulting Agency Comment Spec In Lab Que Amaro MD CHEMISTRY ORDBhargav JENNINGS Performing Organization Address City/[facility] Co de Phone Number [facility] [place] [address] * Phosphorus (05/17/2016 5:35 AM EST) Phosphorus 2.9 2.5 - 4.5 mg/dL [facility] Blood specimen (specimen) 05/17/2016 5:35 AM EST 05/17/2016 5:42 AM EST Narrative Resulting Agency Comment Spec In Lab Que Amaro MD CHEMISTRY ROCHELLE JENNINGS [facility] [place] [address] * (ABNORMAL) Basic Metabolic Panel (non-fasting) (05/17/2016 5:35 AM EST) Glucose 164 65 - 199 mg/dL [facility] Comment:Diabetes: >=200 mg/d L plus symptoms Blood Urea Nitrogen 13 10 - 20 mg/dL [facility] Creatinine 1.23 0.80 - 1.50 mg/dL [facility] Comment: Please note that the pediatric reference intervals supplied above were not validated at [facility]. Results from pediatric patients should be interpreted in conjunction to the patient's age, height and muscle mass. Sodium 141 135 - 145 mmol/L [facility] Potassium 3.5 3.5 - 5.0 mmol/L [facility] Comment: Please note: ??Patients with WBC >100,000 may have falsely elevated Potassium levels. ??For accurate Potassium quantification in these patients send serum separator tube (gold top) for subsequent determinations. ??Contact the Clinical Chemistry Laboratory if there are any questions. Chloride 102 98 - 107 mmol/L [facility] Carbon Dioxide 26 22 - 31 mmol/L [facility] Anion Gap 13 5 - 15 mmol/L [facility] Calcium 8.9 8.5 - 10.5 mg/dL [facility] Est Glomerular Filtration Rate 59(L) >=60 [facility] Comment: This estimated [...] the following links into your internet browser. [email or web address] Blood specimen (specimen) 05/17/2016 5:35 AM EST 05/17/2016 5:42 AM EST Narrative Resulting Agency Comment Spec In Lab Que Amaro MD CHEMISTRY ROCHELLE JENNINGS Performing Organization Address [facility] de Phone Number [facility] [address] * Tacrolimus level (05/16/2016 8:50 AM EST) Pathologist [facility] Tacrolimus 5.7 ng/mL [facility] Comment: Trough therapeutic: ??5-15 ng/mL Performed by ultra-performance liquid chromatography tandem mass spectrometry (UPLCMS/MS). Blood specimen (specimen) 05/16/2016 8:50 AM EST 05/16/2016 11:43 AM EST Narrative Resulting Agency Comment Spec In Lab Que Amaro MD CHEMISTRY ROCHELLE JENNINGS Performing Organization Address [facility] de Phone Number [facility] [place] [address] * Differential, Automated (05/16/2016 6:24 AM EST) Pathologist [facility] Neutrophil % 68.9 % [facility] Neutrophil Absolute 5.15 1.70 - 6.10 x10(3)/[facility] Lymph % 16.7 % [facility] Lymphocytes Abs 1.2 0.9 - 3.2 x10(3)/[facility] Monocyte % 8.2 % [facility] Monocyte Abs 0.6 0.3 - 0.9 x10(3)/[facility] Eos % 4.5 % [facility] Eosinophils Abs 0.3 0.0 - 0.4 x10(3)/[facility] Basophil % 1.3 % [facility] Baso Absolute 0.1 0.0 - 0.1 x10(3)/[facility] Immature Gran % 0.40 % [facility] Comment: Immature granulocytes(IG's)percentage and absolute count will include metamyelocytes, myelocytes, and promyelocytes. Blood smears from CBCs yielding IG's will be scanned manually for concordance. If this scan disagrees with the automated IG or if promyelocytes are noted, a manual differential will be performed. Immature Gran Absolute 0.03 0.00 - 0.04 x10(3)/[facility] Blood specimen (specimen) 05/16/2016 6:24 AM EST 05/16/2016 6:34 AM EST Narrative Resulting Agency Comment Spec In Lab Que Amaro MD HEMATOLOGY ORD ERABLES Performing Organization Address City/State/[facility] Co de Phone Number [facility] [place] [address] * (ABNORMAL) Hemogram (05/16/2016 6:24 AM EST) White Blood Cell 7.5 4.0 - 9.5 x10(3)/mc L [facility] Red Blood Cell 4.52(L) 4.58 - 5.54 x10(6)/ L [facility] Hemoglobin 14.4 13.7 - 16.5 gm/dL [facility] Hematocrit 41.1 40.5 - 48.5 % [facility] Mean Cell Volume 90.9 82.9 - 93.1 fL [facility] Mean Cell Hemoglobin 31.9 27.5 - 32.1 pg [facility] Mean Cell Hemoglobin Concentration 35.0 32.0 - 35.7 gm/dL [facility] Platelet 215 145 - 357 x10(3)/ L [facility] RDW Standard Deviation 40.2 36.0 - 45.0 fL [facility] RDW coefficient of variation 12.0 11.4 - 13.8 % [facility] Mean Platelet Volume 8.8 7.6 - 12.9 fL [facility] NRBC% auto 0.0 % [facility] NRBC Absolute 0.000 0.000 - 0.000 x10(3)/mc L [facility] Blood specimen (specimen) 05/16/2016 6:24 AM EST 05/16/2016 6:34 AM EST Narrative Resulting Agency Comment Spec In Lab Que Amaro MD HEMATOLOGY ORD ERABLES Performing Organization Address [facility] Co de Phone Number [facility] [place] [address] * (ABNORMAL) Magnesium (05/16/2016 6:24 AM EST) Magnesium 0.58(L) 0.69 - 1.07 mmol/L [facility] Blood specimen (specimen) 05/16/2016 6:24 AM EST 05/16/2016 6:34 AM EST Narrative Resulting Agency Comment Spec In Lab Que Amaro MD CHEMISTRY ORDBhargav JENNINGS Performing Organization Address [facility] Co de Phone Number [facility] [place] [address] * Phosphorus (05/16/2016 6:24 AM EST) Phosphorus 2.6 2.5 - 4.5 mg/dL [facility] Blood specimen (specimen) 05/16/2016 6:24 AM EST 05/16/2016 6:34 AM EST Narrative Resulting Agency Comment Spec In Lab Que Aamro MD CHEMISTRY ORDBhargav JENNINGS Performing Organization Address [facility] Co de Phone Number [facility] [place] [address] * (ABNORMAL) Basic Metabolic Panel (non-fasting) (05/16/2016 6:24 AM EST) Glucose 180 65 - 199 mg/dL [facility] Comment:Diabetes: >=200 mg/d L plus symptoms Blood Urea Nitrogen 11 10 - 20 mg/dL [facility] Creatinine 1.30 0.80 - 1.50 mg/dL [facility] Comment: Please note that the pediatric reference intervals supplied above were not validated at [facility]. Results from pediatric patients should be interpreted in conjunction to the patient's age, height and muscle mass. Sodium 137 135 - 145 mmol/L [facility] Potassium 3.4(L) 3.5 - 5.0 mmol/L [facility] Comment: Please note: ??Patients with WBC >100,000 may have falsely elevated Potassium levels. ??For accurate Potassium quantification in these patients send serum separator tube (gold top) for subsequent determinations. ??Contact the Clinical Chemistry Laboratory if there are any questions. Chloride 100 98 - 107 mmol/L [facility] Carbon Dioxide 24 22 - 31 mmol/L [facility] Anion Gap 13 5 - 15 mmol/L [facility] Calcium 9.0 8.5 - 10.5 mg/dL [facility] Est Glomerular Filtration Rate 55(L) >=60 [facility] Comment: This estimated [...] the following links into your internet browser. [email or web address] Blood specimen (specimen) 05/16/2016 6:24 AM EST 05/16/2016 6:34 AM EST Narrative Resulting Agency Comment Spec In Lab Que Amaro MD CHEMISTRY ORDE RABLES Performing Organization Address City/[facility]/ZIP Co de Phone Number [facility] [place] [address] * Urine culture (05/15/2016 3:04 PM EST) Urine Culture No growth (Less than 100 cfu/ml). [facility] Urine specimen from nephrostomy tube (specimen) 05/15/2016 3:04 PM EST 05/15/2016 4:31 PM EST Narrative Resulting Agency Comment Spec In Lab Que Amaro MD MICROBIOLOGY - GENERAL ORDERABLES Performing Organization Address [facility]/ZIP Co de Phone Number [facility] [place] [address] * (ABNORMAL) Urinalysis with reflex Culture (05/15/2016 3:04 PM EST) Glucose, Urine Dipstick Negative Negative mg/dL [facility] Protein, Urine Dipstick Negative Negative mg/dL [facility] Bilirubin, Urine Dipstick Negative Negative mg/dL [facility] Comment: Clinical correlation required for positive Urine Bilirubin results as false positive may occur with some drugs and drug related products. If a false positive is suspected a serum total bilirubin should be considered if clinically indicated. Urobilinogen, Urine Dipstick Normal Normal mg/dL [facility] pH, Urn (dipstick) 7.0 5.0 - 8.0 [facility] Blood, Urine Dipstick Small(A) Negative mg/dL [facility] Ketone, Urine Dipstick Negative Negative mg/dL [facility] Nitrite, Urine Dipstick Negative Negative [facility] Leukocytes, Urine Dipstick Small(A) Negative [facility] Appearance, Urine Dipstick Clear Clear [facility] Specific [place] Urine Automated 1.009 1.002 - 1.030 [facility] Color, Urine Dipstick Straw Yellow [facility] RBC, Urine 9(H) 0 - 3 /HPF [facility] WBC, Urine 10(H) 0 - 3 /HPF [facility] Bacteria, Urine Rare(A) None /HPF [facility] Reflex to Culture Yes [facility] Urine specimen from nephrostomy tube (specimen) 05/15/2016 3:04 PM EST 05/15/2016 3:44 PM EST Narrative Resulting Agency Comment Spec In Lab Que Amaro MD URINE ORDERABL ES Performing Organization Address [facility] de Phone Number [facility] [place] [address] * Vancomycin, trough (05/15/2016 5:50 AM EST) Vancomycin, Trough 8.9 mg/L [facility] Comment: Therapeutic range for complicated infections such as bacteremia, endocarditis, osteomyelitis, meningitis, and hospital-acquired pneumonia caused by S. aureus: 15-20 mg/L Therapeutic range for other indications: 10-15 mg/L Toxic: >25 mg/L Reference: Vancomycin Therapeutic Monitoring: Review and Recommendations from the ASHP, IDSA and SIDP Task Force. ??Am J [employer]-Syst [employer]. 2009; 66:82-98 Blood specimen (specimen) 05/15/2016 5:50 AM EST 05/15/2016 6:02 AM EST Narrative Resulting Agency Comment Spec In Lab Que Amaro MD CHEMISTRY ORDE RABLES Performing Organization Address [facility] Co de Phone Number [facility] [place] [address] * (ABNORMAL) Differential, Automated (05/15/2016 3:15 AM EST) Neutrophil % 72.9 % [facility] Neutrophil Absolute 6.64(H) 1.70 - 6.10 x10(3)/mc L [facility] Lymph % 14.1 % [facility] Lymphocytes Abs 1.3 0.9 - 3.2 x10(3)/[facility] Monocyte % 7.9 % [facility] Monocyte Abs 0.7 0.3 - 0.9 x10(3)/[facility] Eos % 3.7 % [facility] Eosinophils Abs 0.3 0.0 - 0.4 x10(3)/[facility] Basophil % 1.1 % [facility] Baso Absolute 0.1 0.0 - 0.1 x10(3)/[facility] Immature Gran % 0.30 % [facility] Comment: Immature granulocytes(IG's)percentage and absolute count will include metamyelocytes, myelocytes, and promyelocytes. Blood smears from CBCs yielding IG's will be scanned manually for concordance. If this scan disagrees with the automated IG or if promyelocytes are noted, a manual differential will be performed. Immature Gran Absolute 0.03 0.00 - 0.04 x10(3)/[facility] Blood specimen (specimen) 05/15/2016 3:15 AM EST 05/15/2016 3:23 AM EST Narrative Resulting Agency Comment Spec In Lab Que Amaro MD HEMATOLOGY ORD ERABLES Performing Organization Address City/State/[facility] Co de Phone Number [facility] [place] [address] * Hemogram (05/15/2016 3:15 AM EST) White Blood Cell 9.1 4.0 - 9.5 x10(3)/[facility] Red Blood Cell 4.58 4.58 - 5.54 x10(6)/[facility] Hemoglobin 14.7 13.7 - 16.5 gm/dL [facility] Hematocrit 41.3 40.5 - 48.5 % [facility] Mean Cell Volume 90.2 82.9 - 93.1 fL [facility] Mean Cell Hemoglobin 32.1 27.5 - 32.1 pg [facility] Mean Cell Hemoglobin Concentration 35.6 32.0 - 35.7 gm/dL [facility] Platelet 209 145 - 357 x10(3)/[facility] RDW Standard Deviation 40.0 36.0 - 45.0 [facility] RDW coefficient of variation 12.2 11.4 - 13.8 % [facility] Mean Platelet Volume 8.7 7.6 - 12.9 fL [facility] NRBC% auto 0.0 % [facility] NRBC Absolute 0.000 0.000 - 0.000 x10(3)/[facility] Blood specimen (specimen) 05/15/2016 3:15 AM EST 05/15/2016 3:23 AM EST Narrative Resulting Agency Comment Spec In Lab Que Amaro MD HEMATOLOGY ORD ERABLES Performing Organization Address City/[facility]/ZIP Co de Phone Number [facility] [place] [address] * (ABNORMAL) Magnesium (05/15/2016 3:15 AM EST) Magnesium 0.68(L) 0.69 - 1.07 mmol/L [facility] Blood specimen (specimen) 05/15/2016 3:15 AM EST 05/15/2016 3:23 AM EST Narrative Resulting Agency Comment Spec In Lab Que Amaro MD CHEMISTRY ORDE RABLENORE Performing Organization Address City/[facility]/ZIP Co de Phone Number [facility] [place] [address] * Phosphorus (05/15/2016 3:15 AM EST) Phosphorus 2.9 2.5 - 4.5 mg/dL [facility] Blood specimen (specimen) 05/15/2016 3:15 AM EST 05/15/2016 3:23 AM EST Narrative Resulting Agency Comment Spec In Lab Que Amaro MD CHEMISTRY ROCHELLE JENNINGS [facility] [place] [address] * (ABNORMAL) Basic Metabolic Panel (non-fasting) (05/15/2016 3:15 AM EST) Glucose 162 65 - 199 mg/dL [facility] Comment:Diabetes: >=200 mg/d L plus symptoms Blood Urea Nitrogen 9(L) 10 - 20 mg/dL [facility] Creatinine 1.23 0.80 - 1.50 mg/dL [facility] Comment: Please note that the pediatric reference intervals supplied above were not validated at [facility]. Results from pediatric patients should be interpreted in conjunction to the patient's age, height and muscle mass. Sodium 140 135 - 145 mmol/L [facility] Potassium 3.6 3.5 - 5.0 mmol/L [facility] Comment: Please note: ??Patients with WBC >100,000 may have falsely elevated Potassium levels. ??For accurate Potassium quantification in these patients send serum separator tube (gold top) for subsequent determinations. ??Contact the Clinical Chemistry Laboratory if there are any questions. Chloride 101 98 - 107 mmol/L [facility] Carbon Dioxide 26 22 - 31 mmol/L [facility] Anion Gap 13 5 - 15 mmol/L [facility] Calcium 9.0 8.5 - 10.5 mg/dL [facility] Est Glomerular Filtration Rate 59(L) >=60 [facility] Comment: This estimated [...] the following links into your internet browser. [email or web address] Blood specimen (specimen) 05/15/2016 3:15 AM EST 05/15/2016 3:23 AM EST Narrative Resulting Agency Comment Spec In Lab Que Amaro MD CHEMISTRY ROCHELLE JENNINGS [facility] [place] [address] * XR Chest PA or AP 1 view (05/14/2016 7:15 PM EST) Anatomical Region Laterality Modality Chest N/A Digital Radiogra phy Impressions 05/14/2016 7:27 PM EST FINDINGS/IMPRESSION: Cardiomegaly. Mild pulmonary edema. No focal consolidation. No pleural effusions. The right-sided PICC line is unchanged and terminates at the expected location of SVC. Narrative 05/14/2016 7:27 PM EST EXAMINATION: XR CHEST PA OR AP 1 VIEW CLINICAL HISTORY: Recheck PICC placement, concern that it pulled out 2cm during dressing change. TECHNIQUE: AP portable chest COMPARISON: 05/13/2016 Procedure Note Shanon Brady MD - 05/14/2016 EXAMINATION: XR CHEST PA OR AP 1 VIEW CLINICAL HISTORY: Recheck PICC placement, concern that it pulled out 2cmduring dressing change. TECHNIQUE: AP portable chest COMPARISON: 05/13/2016 IMPRESSION FINDINGS/IMPRESSION: Cardiomegaly. Mild pulmonary edema. No focal consolidation. No pleural effusions. The right-sided PICC line is unchanged and terminates at the expectedlocation of SVC. Que Amaro MD IMG DX ORDERAB LES * (ABNORMAL) Differential, Automated (05/14/2016 6:45 AM EST) Neutrophil % 77.5 % [facility] Neutrophil Absolute 7.24(H) 1.70 - 6.10 x10(3)/mc L [facility] Lymph % 11.1 % [facility] Lymphocytes Abs 1.0 0.9 - 3.2 x10(3)/[facility] Monocyte % 8.4 % [facility] Monocyte Abs 0.8 0.3 - 0.9 x10(3)/[facility] Eos % 1.7 % [facility] Eosinophils Abs 0.2 0.0 - 0.4 x10(3)/[facility] Basophil % 0.9 % [facility] Baso Absolute 0.1 0.0 - 0.1 x10(3)/[facility] Immature Gran % 0.40 % [facility] Comment: Immature granulocytes(IG's)percentage and absolute count will include metamyelocytes, myelocytes, and promyelocytes. Blood smears from CBCs yielding IG's will be scanned manually for concordance. If this scan disagrees with the automated IG or if promyelocytes are noted, a manual differential will be performed. Immature Gran Absolute 0.04 0.00 - 0.04 x10(3)/[facility] Blood specimen (specimen) 05/14/2016 6:45 AM EST 05/14/2016 7:06 AM EST Narrative Resulting Agency Comment Spec In Lab Que Amaro MD HEMATOLOGY ORD ERABLES Performing Organization Address City/State/[facility] Co de Phone Number [facility] [place] [address] * (ABNORMAL) Hemogram (05/14/2016 6:45 AM EST) White Blood Cell 9.4 4.0 - 9.5 x10(3)/[facility] Red Blood Cell 4.43(L) 4.58 - 5.54 x10(6)/[facility] Hemoglobin 14.2 13.7 - 16.5 gm/dL [facility] Hematocrit 41.1 40.5 - 48.5 % [facility] Mean Cell Volume 92.8 82.9 - 93.1 fL [facility] Mean Cell Hemoglobin 32.1 27.5 - 32.1 pg [facility] Mean Cell Hemoglobin Concentration 34.5 32.0 - 35.7 gm/dL [facility] Platelet 208 145 - 357 x10(3)/mc L [facility] RDW Standard Deviation 41.6 36.0 - 45.0 fL [facility] RDW coefficient of variation 12.2 11.4 - 13.8 % [facility] Mean Platelet Volume 9.0 7.6 - 12.9 fL [facility] NRBC% auto 0.0 % [facility] NRBC Absolute 0.000 0.000 - 0.000 x10(3)/mc L [facility] Blood specimen (specimen) 05/14/2016 6:45 AM EST 05/14/2016 7:06 AM EST Narrative Resulting Agency Comment Spec In Lab Que Amaro MD HEMATOLOGY ORD AMANDABLES Performing Organization Address [facility] Co de Phone Number [facility] [place] [address] * (ABNORMAL) Magnesium (05/14/2016 6:45 AM EST) Magnesium 0.60(L) 0.69 - 1.07 mmol/L [facility] Blood specimen (specimen) 05/14/2016 6:45 AM EST 05/14/2016 7:06 AM EST Narrative Resulting Agency Comment Spec In Lab Que Amaro MD CHEMISTRY ORDE RABLENORE Performing Organization Address [facility] Co de Phone Number [facility] [place] [address] * (ABNORMAL) Phosphorus (05/14/2016 6:45 AM EST) Phosphorus 2.1(L) 2.5 - 4.5 mg/dL [facility] Blood specimen (specimen) 05/14/2016 6:45 AM EST 05/14/2016 7:06 AM EST Narrative Resulting Agency Comment Spec In Lab Que Amaro MD CHEMISTRY ROCHELLE JENNINGS [facility] [place] [address] * (ABNORMAL) Basic Metabolic Panel (non-fasting) (05/14/2016 6:45 AM EST) Glucose 165 65 - 199 mg/dL [facility] Comment:Diabetes: >=200 mg/d L plus symptoms Blood Urea Nitrogen 12 10 - 20 mg/dL [facility] Creatinine 1.22 0.80 - 1.50 mg/dL [facility] Comment: Please note that the pediatric reference intervals supplied above were not validated at [facility]. Results from pediatric patients should be interpreted in conjunction to the patient's age, height and muscle mass. Sodium 139 135 - 145 mmol/L [facility] Potassium 3.3(L) 3.5 - 5.0 mmol/L [facility] Comment: Please note: ??Patients with WBC >100,000 may have falsely elevated Potassium levels. ??For accurate Potassium quantification in these patients send serum separator tube (gold top) for subsequent determinations. ??Contact the Clinical Chemistry Laboratory if there are any questions. Chloride 100 98 - 107 mmol/L [facility] Carbon Dioxide 25 22 - 31 mmol/L [facility] Anion Gap 14 5 - 15 mmol/L [facility] Calcium 8.8 8.5 - 10.5 mg/dL [facility] Est Glomerular Filtration Rate 59(L) >=60 [facility] Comment: This estimated [...] the following links into your internet browser. [email or web address] Blood specimen (specimen) 05/14/2016 6:45 AM EST 05/14/2016 7:06 AM EST Narrative Resulting Agency Comment Spec In Lab Que Amaro MD CHEMISTRY ROCHELLE JENNINGS Performing Organization Address [facility] de Phone Number [facility] [place] [address] * C. Difficile Screen (05/14/2016 2:30 AM EST) C Diff Interp Negative Negative [facility] Comment: C. diff ??Negative Clostridium difficile is not present in the specimen. If patient is having diarrhea suspected to be from an infectious cause, then Contact Precautions are still required. Stool specimen (specimen) 05/14/2016 2:30 AM EST 05/14/2016 7:25 AM EST Comment:I am aware that this test may be canceled if the patient has had->formed stool, laxatives within 48hrs, (-) test within 7 days, (+) test within 14 days Narrative Resulting Agency Comment Spec In Lab Kitty Marie MD MICROBIOLOGY - GENER AL ORDERABLES Performing Organization Address [facility] de Phone Number [facility] [place] [address] documented in this encounter Visit Diagnoses Diagnosis Dehydration Dehydration documented in this encounter Administered Medications Inactive Administered Medications - up to 3 most recent administrations Medication Order MAR Action Action Date Dose Rate Site acetaminophen (TYLENOL) tablet 1,000 mg 1,000 mg, Oral, EVERY 6 HOURS PRN, Starting on Thu05/13/16 at 1801, Until Thu05/21/16 at 0933, Pain, Maximum dose of acetaminophen is 4000 mg from all sources in 24 hours., Routine Given 05/20/2016 11:13 AM EST 1,000 mg Given 05/20/2016 2:25 AM EST 1,000 mg Given 05/16/2016 8:45 PM EST 1,000 mg acetaminophen (TYLENOL) tablet 1,000 mg 1,000 mg, Oral, EVERY 6 HOURS, First dose (after last modification) on Thu05/21/16 at 1000, Until Discontinued, Maximum dose of acetaminophen is 4000 mg from all sources in 24 hours., Routine Given 05/28/2016 11:32 AM EST 1,000 mg Given 05/28/2016 4:15 AM EST 1,000 mg Given 05/27/2016 9:46 PM EST 1,000 mg aspirin chewable tablet 81 mg 81 mg, Oral, DAILY, First dose on Thu05/23/16 at 1100, Until Discontinued, Routine Given 05/28/2016 8:35 AM EST 81 mg Given 05/27/2016 10:06 AM EST 81 mg Given 05/26/2016 8:36 AM EST 81 mg bisacodyl (DULCOLAX) EC tablet 20 mg 20 mg, Oral, USER SPECIFIED (2 times per day on Thu), 2 doses, First dose (after last modification) on Thu05/19/16 at 1400, Last dose on Thu05/19/16 at 2000, DO NOT CRUSH OR OPEN Follow bowel prep instructions: 2pm: give 4 dulcolax tablets 4pm: give miralax prep. Finish within 2 hours. 1hr after finishing miralax prep, give 4 additional dulcolax tablets 7pm: give 4 neomycin pills and 4 metronidazole pills 11pm: give 4 neomycin pills and 4 metronidazole pills, Routine Given 05/19/2016 8:07 PM EST 20 mg Given 05/19/2016 2:14 PM EST 20 mg bisacodyl (DULCOLAX) suppository 10 mg 10 mg, Rectal, ONCE, 1 dose, On Thu05/23/16 at 1530, Routine Given 05/23/2016 3:46 PM EST 10 mg bisacodyl (DULCOLAX) suppository 10 mg 10 mg, Rectal, ONCE, 1 dose, On Thu05/24/16 at 0830, Routine Given 05/24/2016 8:26 AM EST 10 mg bisacodyl (DULCOLAX) suppository 10 mg 10 mg, Rectal, ONCE, 1 dose, On Thu05/25/16 at 0915, Routine Given 05/25/2016 9:19 AM EST 10 mg bisacodyl (DULCOLAX) suppository 10 mg 10 mg, Rectal, ONCE, 1 dose, On 05/26/16 at 1000, Routine Given 05/26/2016 10:32 AM EST 10 mg bisacodyl (DULCOLAX) suppository 10 mg 10 mg, Rectal, ONCE, 1 dose, On Tu05/27/16 at 0845, Routine Given 05/27/2016 10:24 AM EST 10 mg calciTRIol (ROCALTROL) capsule 0.5 mcg 0.5 mcg, Oral, DAILY, First dose on Thu05/14/16 at 0900, Until Discontinued, Routine Given 05/28/2016 8:36 AM EST 0.5 mcg Given 05/27/2016 10:06 AM EST 0.5 mcg Given 05/26/2016 8:37 AM EST 0.5 mcg ceFAZolin (ANCEF) 2g in dextrose 5% 50 mL 2 g, Intravenous, EVERY 8 HOURS, First dose on Thu05/16/16 at 2200, Until Discontinued, Administer over 30 Minutes, Indication for (Active or Suspected): Urinary Tract/Pyelonephritis Given 05/24/2016 5:02 AM EST 2 g 100 mL/hr Given 05/23/2016 10:03 PM EST 2 g 100 mL/hr Given 05/23/2016 2:41 PM EST 2 g 100 mL/hr cephalexin (KEFLEX) capsule 500 mg 500 mg, Oral, 4 TIMES DAILY, First dose on Thu05/16/16 at 1430, Until Discontinued, Routine, Indication for (Active or Suspected): Urinary Tract/Pyelonephritis Given 05/16/2016 3:33 PM EST 500 mg cephalexin (KEFLEX) capsule 500 mg 500 mg, Oral, 4 TIMES DAILY, 20 doses, First dose on Thu05/24/16 at 0900, Last dose on Thu05/28/16 at 2100, Routine, Indication for (Active or Suspected): Urinary Tract/Pyelonephritis Given 05/28/2016 12:28 PM EST 500 mg Given 05/28/2016 8:36 AM EST 500 mg Given 05/27/2016 11:27 PM EST 500 mg DILTiazem (CARDIZEM) tablet 30 mg 30 mg, Oral, EVERY 6 HOURS SCHEDULED, First dose on Thu05/21/16 at 0000, Until Discontinued, hols if sbp is <90 and/or hr<60, Routine Given 05/21/2016 5:16 AM EST 30 mg Given 05/21/2016 12:28 AM EST 30 mg DILTiazem (DILTIAZEM CD) ER capsule 120 mg 120 mg, Oral, DAILY, First dose on Thu05/14/16 at 0900, Until Discontinued, DO NOT CRUSH OR OPEN, Routine Given 05/20/2016 8:00 AM EST 120 mg Given 05/19/2016 9:28 AM EST 120 mg Given 05/18/2016 8:58 AM EST 120 mg docusate sodium (COLACE) capsule 100 mg 100 mg, Oral, 2 TIMES DAILY, First dose on Thu05/21/16 at 0000, Until Discontinued, Routine Given 05/21/2016 8:41 AM EST 100 mg fentaNYL 2 mcg/mL, BUpivacaine (MARCAINE) 0.0625% (0.625 mg/mL)(1/16%) in sodium chloride 0.9% 250 mL epidural Epidural, Patient Controlled Epidural Analgesia (PCEA): 3 mL, PCEA Frequency: Every 20 minutes, Maximum rate for continuous infusion 14 mL per hour Maximum total epidural rate (continuous and PCEA bolus) is 25 mL per hour, Recovery (Recovery-Hospital Unit) New Bag 05/22/2016 6:45 PM EST 6 mL/hr 6 mL/h r New Bag 05/21/2016 7:13 PM EST 6 mL/hr 6 mL/hr Rate/Dose Verify 05/20/2016 8:00 PM EST 6 mL/hr 6 mL/hr furosemide (LASIX) injection 40 mg 40 mg, Intravenous, ONCE, 1 dose, On 05/25/16 at 1100 Given 05/25/2016 11:26 AM EST 40 mg heparin (porcine) subcutaneous injection 5,000 Units 5,000 Units, Subcutaneous, EVERY 12 HOURS SCHEDULED (2 times per day), First dose on Thu05/21/16 at 0000, Until Discontinued, Routine Given 05/21/2016 8:12 PM EST 5,000 Units Given 05/21/2016 8:40 AM EST 5,000 Units Given 05/21/2016 12:16 AM EST 5,000 Units hydrALAZINE (APRESOLINE) injection 10 mg 10 mg, Intravenous, ONCE, 1 dose, On Thu05/25/16 at 1030 Given 05/25/2016 10:47 AM EST 10 mg hydrALAZINE (APRESOLINE) injection 10 mg 10 mg, Intravenous, ONCE, 1 dose, On Thu05/26/16 at 1615 Given 05/26/2016 4:01 PM EST 10 mg hydrALAZINE (APRESOLINE) injection 10 mg 10 mg, Intravenous, ONCE, 1 dose, On Thu05/27/16 at 1100 Given 05/27/2016 11:07 AM EST 10 mg hydrALAZINE (APRESOLINE) injection 10 mg 10 mg, Intravenous, ONCE, 1 dose, On Thu05/28/16 at 0430 Given 05/28/2016 4:15 AM EST 10 mg hydrALAZINE (APRESOLINE) injection 10 mg 10 mg, Intravenous, ONCE, 1 dose, On Thu05/28/16 at 0530 Given 05/28/2016 6:13 AM EST 10 mg hydrALAZINE (APRESOLINE) injection 5 mg 5 mg, Intravenous, ONCE, 1 dose, On Thu05/25/16 at 0630 Given 05/25/2016 6:18 AM EST 5 mg HYDROmorphone (DILAUDID) injection 0.2 mg 0.2 mg, Epidural, ONCE, 1 dose, On Thu05/20/16 at 1445, Routine Given 05/20/2016 1:55 PM EST 0.2 mg HYDROmorphone (DILAUDID) injection 0.2 mg 0.2 mg, Intravenous, EVERY 2 HOURS PRN, Starting on Thu05/20/16 at 2341, Until Thu05/28/16 at 1635, Pain, for SEVERE pain (7-10), May repeat once in 30 minutes if pain not relieved., Routine Given 05/23/2016 7:55 PM EST 0.2 mg lactulose (CHRONULAC) 20 gram/30 mL oral solution 10 g 10 g, Oral, DAILY, First dose on Thu05/26/16 at 1015, Until Discontinued, Routine Given 05/28/2016 8:39 AM EST 10 g Given 05/27/2016 10:15 AM EST 10 g Given 05/26/2016 10:31 AM EST 10 g levothyroxine (SYNTHROID) injection 50 mcg 50 mcg, Intravenous, EVERY MORNING, First dose (after last modification) on Laura 05/22/16 at 0700, Until Discontinued, Administer over 1 Minutes Given 05/23/2016 5:32 AM EST 50 mcg 150 mL/hr Given 05/22/2016 6:46 AM EST 50 mcg 150 mL/hr levothyroxine (SYNTHROID) tablet 100 mcg 100 mcg, Oral, EVERY MORNING, First dose on Thu05/14/16 at 0600, Until Discontinued, Routine Given 05/21/2016 5:16 AM EST 100 mcg Given 05/20/2016 5:44 AM EST 100 mcg Given 05/19/2016 6:22 AM EST 100 mcg levothyroxine (SYNTHROID) tablet 100 mcg 100 mcg, Oral, EVERY MORNING, First dose on Thu05/24/16 at 0600, Until Discontinued, Routine Given 05/28/2016 6:13 AM EST 100 mcg Given 05/27/2016 6:10 AM EST 100 mcg Given 05/26/2016 5:03 AM EST 100 mcg magnesium sulfate 2 g in sterile water 50 mL 2 g, Intravenous, ONCE, 1 dose, On Thu05/13/16 at 1707, Administer over 120 Minutes Given 05/13/2016 5:07 PM EST 2 g 25 mL/hr magnesium sulfate 2 g in sterile water 50 mL 2 g, Intravenous, ONCE, 1 dose, On Thu05/14/16 at 1030, Administer over 120 Minutes Given 05/14/2016 11:15 AM EST 2 g 25 mL/hr magnesium sulfate 2 g in sterile water 50 mL 2 g, Intravenous, EVERY 2 HOURS, 2 doses, First dose on Thu05/16/16 at 0830, Last dose on Thu05/16/16 at 1030, Administer over 120 Minutes Given 05/16/2016 12:06 PM EST 2 g 25 mL/hr Given 05/16/2016 9:50 AM EST 2 g 25 mL/hr magnesium sulfate 2 g in sterile water 50 mL 2 g, Intravenous, ONCE, 1 dose, On Thu05/17/16 at 0830, Administer over 120 Minutes Given 05/17/2016 10:51 AM EST 2 g 25 mL/hr magnesium sulfate 2 g in sterile water 50 mL 2 g, Intravenous, EVERY 2 HOURS, 2 doses, First dose (after last reorder) on 05/18/16 at 0800, Last dose on 05/18/16 at 1000, Administer over 120 Minutes Given 05/18/2016 11:50 AM EST 2 g 25 mL/hr Given 05/18/2016 9:32 AM EST 2 g 25 mL/hr magnesium sulfate 2 g in sterile water 50 mL 2 g, Intravenous, ONCE, 1 dose, On Thu05/21/16 at 0945, Administer over 120 Minutes Given 05/21/2016 11:17 AM EST 2 g 25 mL/hr magnesium sulfate 2 g in sterile water 50 mL 2 g, Intravenous, ONCE, 1 dose, On Thu05/23/16 at 1115, Administer over 120 Minutes Given 05/23/2016 12:05 PM EST 2 g 25 mL/hr magnesium sulfate 2 g in sterile water 50 mL 2 g, Intravenous, ONCE, 1 dose, On Thu05/24/16 at 0800, Administer over 120 Minutes, Minimum infusion duration is 2 hours. Given 05/24/2016 9:23 AM EST 2 g 25 mL/hr magnesium sulfate 2 g in sterile water 50 mL 2 g, Intravenous, ONCE, 1 dose, On Thu05/25/16 at 0915, Administer over 120 Minutes Given 05/25/2016 10:14 AM EST 2 g 25 mL/hr magnesium sulfate 2 g in sterile water 50 mL 2 g, Intravenous, ONCE, 1 dose, On Thu05/26/16 at 1515, Administer over 120 Minutes Given 05/26/2016 4:04 PM EST 2 g 25 mL/hr meTOPROLOL (LOPRESSOR) injection 5 mg 5 mg, Intravenous, EVERY 6 HOURS, First dose on Thu05/21/16 at 1500, Until Discontinued, Hold for SBP < 120 or HR < 55bpm Given 05/24/2016 2:39 AM EST 5 mg Given 05/23/2016 8:11 PM EST 5 mg Given 05/23/2016 2:40 PM EST 5 mg meTOPROLOL (LOPRESSOR) tablet 12.5 mg 12.5 mg, Oral, EVERY 12 HOURS SCHEDULED (2 times per day), First dose on Thu05/16/16 at 1445, Until Discontinued, Hold for HR < 60 or SBP <110, Routine Given 05/21/2016 8:41 AM EST 12.5 mg Given 05/20/2016 8:01 AM EST 12.5 mg Given 05/19/2016 8:07 PM EST 12.5 mg meTOPROLOL tartrate (LOPRESSOR) tablet 25 mg 25 mg, Oral, EVERY 12 HOURS SCHEDULED (2 times per day), First dose on Thu05/24/16 at 0900, Until Discontinued, Hold for SBP < 120 or HR < 55bpm, Routine Given 05/27/2016 10:08 AM EST 25 mg Given 05/26/2016 8:35 PM EST 25 mg Given 05/26/2016 8:40 AM EST 25 mg meTOPROLOL tartrate (LOPRESSOR) tablet 50 mg 50 mg, Oral, EVERY 12 HOURS SCHEDULED (2 times per day), First dose (after last modification) on Thu05/27/16 at 2100, Until Discontinued, Hold for SBP < 120 or HR < 55bpm, Routine Given 05/28/2016 8:36 AM EST 50 mg Given 05/27/2016 8:14 PM EST 50 mg metroNIDAZOLE (FLAGYL) tablet 2,000 mg 2,000 mg, Oral, USER SPECIFIED (2 times per day on Thu), 2 doses, First dose (after last modification) on Thu05/19/16 at 1900, Last dose on Thu05/19/16 at 2300, Follow bowel prep instructions: 2pm: give 4 dulcolax tablets 4pm: give miralax prep. Finish within 2 hours. 1hr after finishing miralax prep, give 4 additional dulcolax tablets 7pm: give 4 neomycin pills and 4 metronidazole pills 11pm: give 4 neomycin pills and 4 metronidazole pills, Routine, Indication for (Active or Suspected): Other (See comment) Given 05/19/2016 11:12 PM EST 2,000 mg Given 05/19/2016 6:54 PM EST 2,000 mg midazolam (PF) (VERSED) 1 mg/mL injection 0.5-2 mg 0.5-2 mg, Intravenous, EVERY 1 MIN PRN, Starting on Thu05/20/16 at 1238, Until Thu05/20/16 at 1420, for epidural placement only, Routine Given 05/20/2016 1:25 PM EST 2 mg mycophenolate (CELLCEPT) 250 mg in dextrose 5% 257 mL 250 mg, Intravenous, EVERY 12 HOURS, First dose on Thu05/21/16 at 2100, Until Discontinued, Administer over 2 Hours Given 05/23/2016 9:01 PM EST 250 mg 128.5 m L/hr Given 05/23/2016 8:52 AM EST 250 mg 128.5 mL/hr Given 05/22/2016 8:09 PM EST 250 mg 128.5 mL/hr mycophenolate (CELLCEPT) capsule 250 mg 250 mg, Oral, 2 TIMES DAILY, First dose on Thu05/13/16 at 2300, Until Discontinued, DO NOT CRUSH OR OPEN, Routine Given 05/21/2016 8:41 AM EST 250 mg Given 05/20/2016 8:01 AM EST 250 mg Given 05/19/2016 8:07 PM EST 250 mg mycophenolate (CELLCEPT) capsule 250 mg 250 mg, Oral, 2 TIMES DAILY, First dose on Thu05/24/16 at 0900, Until Discontinued, DO NOT CRUSH OR OPEN, Routine Given 05/28/2016 8:37 AM EST 250 mg Given 05/27/2016 8:13 PM EST 250 mg Given 05/27/2016 10:07 AM EST 250 mg nalbuphine (NUBAIN) injection 2 mg 2 mg, Intravenous, EVERY 4 HOURS PRN, Itching, Starting on Thu05/20/16 at 2342, Until Thu05/26/16 at 0639, If not effective, may repeat once after 30 minutes with each 4 hour dosing interval. For itching caused by hydromorphone or fentanyl use nalbuphine first. For itching caused by morphine use diphenhydramine first. Given 05/23/2016 5:58 AM EST 2 mg Given 05/22/2016 4:19 PM EST 2 mg Given 05/22/2016 5:26 AM EST 2 mg neomycin (MYCIFRADIN) tablet 2,000 mg 2,000 mg, Oral, USER SPECIFIED (2 times per day on Thu), 2 doses, First dose on Thu05/19/16 at 1900, Last dose on Thu05/19/16 at 2300, Follow bowel prep instructions: 2pm: give 4 dulcolax tablets 4pm: give miralax prep. Finish within 2 hours. 1hr after finishing miralax prep, give 4 additional dulcolax tablets 7pm: give 4 neomycin pills and 4 metronidazole pills 11pm: give 4 neomycin pills and 4 metronidazole pills, Routine, Indication for (Active or Suspected): Other (See comment) Given 05/19/2016 11:12 PM EST 2,000 mg Given 05/19/2016 6:53 PM EST 2,000 mg ondansetron (ZOFRAN) injection 4 mg 4 mg, Intravenous, EVERY 8 HOURS SCHEDULED, 6 doses, First dose on Thu05/21/16 at 0000, Last dose on Thu05/22/16 at 1400, May repeat times one in 30 minutes if ineffective Given 05/21/2016 12:13 AM EST 4 mg ondansetron (ZOFRAN) tablet 4 mg 4 mg, Oral, EVERY 8 HOURS SCHEDULED, 6 doses, First dose on Thu05/21/16 at 0000, Last dose on Thu05/22/16 at 1400, If multiple antiemetics are ordered, use ondansetron first. PO Preferred. If patient unable to take PO, may give IV if ordered. May repeat times one in 45 minutes if ineffective., Routine Given 05/22/2016 2:36 PM EST 4 mg Given 05/22/2016 5:26 AM EST 4 mg Given 05/21/2016 10:00 PM EST 4 mg oxyCODONE (ROXICODONE) immediate release tablet 10 mg 10 mg, Oral, EVERY 4 HOURS PRN, Starting on Thu05/20/16 at 2209, Until Thu05/28/16 at 1635, Pain, moderate pain (4-6), May give additional 5 mg in 30 minutes once if pain not relieved., Routine Given 05/28/2016 12:28 PM EST 10 mg Given 05/28/2016 8:26 AM EST 10 mg Given 05/28/2016 4:15 AM EST 10 mg oxyCODONE (ROXICODONE) immediate release tablet 15 mg 15 mg, Oral, EVERY 4 HOURS PRN, Starting on Thu05/20/16 at 2209, Until Thu05/28/16 at 1635, Pain, severe pain or opiate tolerant patient (7-10), Do not start patient with 15 mg dose. Do not give 15 mg if patient is opiate niave., Routine Given 05/27/2016 10:14 AM EST 15 mg Given 05/27/2016 6:11 AM EST 15 mg Given 05/27/2016 2:16 AM EST 15 mg oxyCODONE (ROXICODONE) immediate release tablet 5 mg 5 mg, Oral, EVERY 4 HOURS PRN, Starting on Thu05/20/16 at 2209, Until Thu05/28/16 at 1635, Pain, mild pain (1-3), May give additional 5 mg in 30 minutes once if pain not relieved., Routine Given 05/23/2016 10:31 PM EST 5 mg Given 05/23/2016 5:35 PM EST 5 mg Given 05/23/2016 10:46 AM EST 5 mg pantoprazole (PROTONIX) tablet 20 mg 20 mg, Oral, DAILY, First dose on Thu05/14/16 at 0900, Until Discontinued, DO NOT CRUSH OR OPEN Given 05/21/2016 8:41 AM EST 20 mg Given 05/20/2016 8:00 AM EST 20 mg Given 05/19/2016 8:58 AM EST 20 mg pantoprazole (PROTONIX) tablet 40 mg 40 mg, Oral, DAILY, First dose on Thu05/25/16 at 0900, Until Discontinued, DO NOT CRUSH OR OPEN Given 05/28/2016 8:37 AM EST 40 mg Given 05/27/2016 10:11 AM EST 40 mg Given 05/26/2016 8:36 AM EST 40 mg piperacillin-tazobactam (ZOSYN) 3.375 g in dextrose 5% 50 mL 3.375 g, Intravenous, EVERY 8 HOURS, First dose on Thu05/14/16 at 1045, Until Discontinued, Administer over 4 Hours, Warning Vesicant/Irritant Medication , Indication for (Active or Suspected): Urinary Tract/Pyelonephritis Given 05/17/2016 4:00 AM EST 3.375 g 12.5 mL/hr Given 05/16/2016 8:30 PM EST 3.375 g 12.5 mL/hr Given 05/16/2016 12:04 PM EST 3.375 g 12.5 mL/hr polyethylene glycol (MIRALAX) packet 238 g 238 g, Oral, ONCE, 1 dose, On Thu05/19/16 at 1600, DO NOT CRUSH OR OPEN Follow bowel prep instructions: 2pm: give 4 dulcolax tablets 4pm: give miralax prep. Finish within 2 hours. 1hr after finishing miralax prep, give 4 additional dulcolax tablets 7pm: give 4 neomycin pills and 4 metronidazole pills 11pm: give 4 neomycin pills and 4 metronidazole pills, Routine Given 05/19/2016 4:33 PM EST 238 g potassium chloride (K-DUR/KLOR-CON) extended release tablet 40 mEq 40 mEq, Oral, ONCE, 1 dose, On Thu05/14/16 at 1300, Routine Given 05/14/2016 1:20 PM EST 40 mEq potassium chloride (K-DUR/KLOR-CON) extended release tablet 40 mEq 40 mEq, Oral, ONCE, 1 dose, On Laura 05/15/16 at 1000, Routine Given 05/15/2016 11:29 AM EST 40 mEq potassium chloride (K-DUR/KLOR-CON) extended release tablet 40 mEq 40 mEq, Oral, ONCE, 1 dose, On Thu05/16/16 at 0800, Routine Given 05/16/2016 9:26 AM EST 40 mEq potassium chloride (K-DUR/KLOR-CON) extended release tablet 40 mEq 40 mEq, Oral, ONCE, 1 dose, On 05/17/16 at 0830, Routine Given 05/17/2016 8:32 AM EST 40 mEq potassium chloride (K-DUR/KLOR-CON) extended release tablet 40 mEq 40 mEq, Oral, 2 TIMES DAILY, First dose (after last reorder) on 05/18/16 at 0900, Until Discontinued, Routine Given 05/20/2016 8:01 AM EST 40 mEq Given 05/19/2016 8:07 PM EST 40 mEq Given 05/19/2016 8:57 AM EST 40 mEq potassium chloride (K-DUR/KLOR-CON) extended release tablet 40 mEq 40 mEq, Oral, ONCE, 1 dose, On 05/24/16 at 0715, 20 mEq tablet may be dissolved in water for administration, Routine Given 05/24/2016 8:17 AM EST 40 mEq potassium chloride (K-DUR/KLOR-CON) extended release tablet 40 mEq 40 mEq, Oral, ONCE, 1 dose, On 05/25/16 at 0915, Routine Given 05/25/2016 9:19 AM EST 40 mEq potassium chloride 10 mEq in 100 mL 10 mEq, Intravenous, EVERY HOUR, 2 doses, First dose (after last modification) on 05/25/16 at 1115, Last dose on 05/25/16 at 1200, Administer over 60 Minutes, -Use only for pateint who is NPO, lacks enteral access, or potassium level less than 2.8 mMol/L -Doses in excess of 40 mEq potassium require re-checking STAT serum potassium level 1.5 hours after completion of last dose and prior to administration of additional doses. Administer each 10 mEq/100 mL dose over 60 minutes. Given 05/25/2016 12:31 PM EST 10 mEq 100 mL/hr Given 05/25/2016 11:28 AM EST 10 mEq 100 mL/hr potassium chloride 10 mEq in 100 mL 10 mEq, Intravenous, EVERY HOUR, 3 doses, First dose on Thu05/26/16 at 1000, Last dose on Thu05/26/16 at 1200, Administer over 60 Minutes, -Use only for pateint who is NPO, lacks enteral access, or potassium level less than 2.8 mMol/L -Doses in excess of 40 mEq potassium require re-checking STAT serum potassium level 1.5 hours after completion of last dose and prior to administration of additional doses. Administer each 10 mEq/100 mL dose over 60 minutes. Given 05/26/2016 12:00 PM EST 10 mEq 100 mL/hr Given 05/26/2016 11:42 AM EST 10 mEq 100 mL/hr Given 05/26/2016 10:28 AM EST 10 mEq 100 mL/hr potassium chloride 10 mEq in 100 mL 10 mEq, Intravenous, EVERY HOUR, 2 doses, First dose on Thu05/27/16 at 0900, Last dose on Thu05/27/16 at 1000, Administer over 60 Minutes, -Use only for pateint who is NPO, lacks enteral access, or potassium level less than 2.8 mMol/L -Doses in excess of 40 mEq potassium require re-checking STAT serum potassium level 1.5 hours after completion of last dose and prior to administration of additional doses. Administer each 10 mEq/100 mL dose over 60 minutes. Given 05/27/2016 1:35 PM EST 10 mE q 100 mL/hr Given 05/27/2016 11:07 AM EST 10 mEq 100 mL/hr potassium phosphate (monobasic) (K-PHOS) tablet 1,000 mg 1,000 mg, Oral, 2 TIMES DAILY, First dose on Thu05/13/16 at 2300, Until Discontinued, Dissolve tablets in 6-8 oz of water; for best results, soak tablets in water for 2-5 minutes, then stir and give to patient., Routine Given 05/14/2016 8:38 AM EST 1,000 mg Given 05/13/2016 10:57 PM EST 1,000 mg potassium phosphate (monobasic) (K-PHOS) tablet 1,000 mg 1,000 mg, Oral, 4 TIMES DAILY WITH MEALS & NIGHTLY, First dose (after last modification) on Thu05/14/16 at 1200, Until Discontinued, Dissolve tablets in 6-8 oz of water; for best results, soak tablets in water for 2-5 minutes, then stir and give to patient., Routine Given 05/14/2016 8:32 PM EST 1,000 mg Given 05/14/2016 5:41 PM EST 1,000 mg Given 05/14/2016 11:15 AM EST 1,000 mg potassium phosphate (monobasic) (K-PHOS) tablet 1,000 mg 1,000 mg, Oral, 2 TIMES DAILY, First dose (after last modification) on Thu05/15/16 at 2100, Until Discontinued, Dissolve tablets in 6-8 oz of water; for best results, soak tablets in water for 2-5 minutes, then stir and give to patient., Routine Given 05/21/2016 8:41 AM EST 1,000 mg Given 05/20/2016 8:00 AM EST 1,000 mg Given 05/19/2016 8:07 PM EST 1,000 mg potassium phosphate 15 mMol in sodium chloride 0.9% 250 mL 15 mmol, Intravenous, ONCE, 1 dose, On Thu05/21/16 at 0945, Administer over 4 Hours, Administer over 4-6 hours Given 05/21/2016 2:25 PM EST 15 mmol 62.5 mL/hr potassium phosphate 15 mMol in sodium chloride 0.9% 250 mL 15 mmol, Intravenous, EVERY 4 HOURS, 2 doses, First dose on Thu05/23/16 at 0900, Last dose on Thu05/23/16 at 1300, Administer over 4 Hours, Administer over 4-6 hours Given 05/23/2016 4:43 PM EST 15 mmol 62.5 mL/hr Given 05/23/2016 11:06 AM EST 15 mmol 62.5 mL/hr senna-docusate (PERICOLACE) 8.6-50 mg per tablet 4 tablet 4 tablet, Oral, 2 TIMES DAILY, First dose on Thu05/23/16 at 1100, Until Discontinued, Routine Given 05/28/2016 8:38 AM EST 4 tablets Given 05/27/2016 8:14 PM EST 4 tablets Given 05/27/2016 10:18 AM EST 4 tablets sodium chloride 0.9 % flush 5 mL 5 mL, Intravenous, 2 TIMES DAILY, First dose on Thu05/13/16 at 2100, Until Discontinued, Routine Given 05/28/2016 8:43 AM EST 5 mLs Given 05/27/2016 8:20 PM EST 5 mLs Given 05/27/2016 10:19 AM EST 5 mLs sodium chloride 0.9% 1,000 mL IV bolus Intravenous, ONCE, 1 dose, On Thu05/25/16 at 1030 Given 05/25/2016 10:18 AM EST sodium chloride 0.9% 2,000 mL IV bolus at 1,000 mL/hr, Intravenous, ONCE, 1 dose, On Thu05/17/16 at 0845 Given 05/17/2016 8:33 AM EST 1000 mL/hr sodium chloride 0.9% 2,000 mL IV bolus at 1,000 mL/hr, Intravenous, ONCE, 1 dose, On Thu05/18/16 at 1800 Given 05/18/2016 6:16 PM EST 1000 mL/hr sodium chloride 0.9% infusion 100 mL/hr, Intravenous, CONTINUOUS, Starting on Thu05/13/16 at 1707, Until Thu05/17/16 at 0819 New 05/17/2016 6:00 AM EST 100 mL/hr 100 mL/hr New Bag 05/16/2016 10:00 PM EST 100 mL/hr 100 mL/hr New Bag 05/15/2016 6:01 PM EST 100 mL/hr 100 mL/hr sodium chloride 0.9% infusion 150 mL/hr, Intravenous, CONTINUOUS, Starting on Thu05/19/16 at 1045, Until Thu05/20/16 at 2033 New 05/19/2016 9:35 PM EST 150 mL/hr 150 mL/hr New Bag 05/19/2016 12:28 PM EST 150 mL/hr 150 mL/hr sodium chloride 0.9% infusion 150 mL/hr, Intravenous, CONTINUOUS, Starting on Thu05/20/16 at 2100, Until Thu05/20/16 at 2249, PACU Recovery New 05/20/2016 9:50 PM EST 150 mL/hr 150 mL/hr sodium chloride 0.9% infusion 100 mL/hr, Intravenous, CONTINUOUS, Starting on Thu05/21/16 at 0945, Until Thu05/25/16 at 1006 New Bag 05/25/2016 10:01 AM EST 100 mL/hr 100 mL/hr New Bag 05/25/2016 12:26 AM EST 100 mL/hr 100 mL/hr New Bag 05/24/2016 5:01 AM EST 100 mL/hr 100 mL/hr sodium chloride 0.9% infusion 75 mL/hr, Intravenous, CONTINUOUS, Starting on Thu05/26/16 at 1000, Until Thu05/27/16 at 0827 New Bag 05/26/2016 10:24 AM EST 75 mL/hr 75 mL/hr tacrolimus (PROGRAF) capsule 0.5 mg 0.5 mg, Oral, ONCE, 1 dose, On Thu05/19/16 at 2100, Routine Given 05/19/2016 8:07 PM EST 0.5 mg tacrolimus (PROGRAF) capsule 0.5 mg 0.5 mg, Oral, NIGHTLY, First dose (after last modification) on Thu05/21/16 at 2100, Until Discontinued, Routine Given 05/27/2016 9:46 PM EST 0.5 mg Given 05/26/2016 9:55 PM EST 0.5 mg Given 05/25/2016 8:44 PM EST 0.5 mg tacrolimus (PROGRAF) capsule 1 mg 1 mg, Oral, 2 TIMES DAILY, First dose on Thu05/13/16 at 2300, Until Discontinued, Routine Given 05/19/2016 8:58 AM EST 1 mg Given 05/18/2016 8:15 PM EST 1 mg Given 05/18/2016 8:54 AM EST 1 mg tacrolimus (PROGRAF) capsule 1 mg 1 mg, Oral, DAILY, First dose on Thu05/20/16 at 0900, Until Discontinued, Routine Given 05/20/2016 8:01 AM EST 1 mg tacrolimus (PROGRAF) capsule 1 mg 1 mg, Oral, DAILY, First dose (after last modification) on Thu05/21/16 at 0900, Until Discontinued, Routine Given 05/28/2016 8:42 AM EST 1 mg Given 05/27/2016 10:07 AM EST 1 mg Given 05/26/2016 8:37 AM EST 1 mg tamsulosin (FLOMAX) ER capsule 0.4 mg 0.4 mg, Oral, NIGHTLY, First dose on Thu05/13/16 at 2115, Until Discontinued, DO NOT CRUSH OR OPEN, Routine Given 05/27/2016 8:13 PM EST 0.4 mg Given 05/26/2016 8:36 PM EST 0.4 mg Given 05/25/2016 8:43 PM EST 0.4 mg valGANciclovir (VALCYTE) tablet 450 mg 450 mg, Oral, 2 TIMES DAILY, First dose on Thu05/13/16 at 2300, Until Discontinued, Routine, Indication for (Active or Suspected): Prophylaxis Given 05/26/2016 8:35 PM EST 450 mg Given 05/26/2016 8:37 AM EST 450 mg Given 05/25/2016 8:44 PM EST 450 mg vancomycin 1.25 g sodium in chloride 0.9% 250 mL 1,250 mg (1.25 g), Intravenous, at 200 mL/hr, EVERY 12 HOURS, First dose on Thu05/13/16 at 1800, Until Discontinued, Maximum infusion rate is 1 gram/hour. If flushing of the face, neck, upper body, arms, and/or back occurs decrease infusion rate by 50% to reduce the severity of symptoms. This medication may have an associated drug lab level. Please see MAR for scheduled level. Warning Vesicant/Irritant Medication , Routine Given 05/15/2016 6:00 AM EST 1,250 mg 200 mL/hr Given 05/14/2016 5:43 PM EST 1,250 mg 200 mL/hr Given 05/14/2016 6:33 AM EST 1,250 mg 200 mL/hr vancomycin 1.5 g in sodium chloride 0.9% 250 mL 1,500 mg (1.5 g), Intravenous, EVERY 12 HOURS, 12 doses, First dose (after last modification) on Thu05/15/16 at 1800, Last dose on Thu05/21/16 at 0600, Maximum infusion rate is 1 gram/hour. If flushing of the face, neck, upper body, arms, and/or back occurs decrease infusion rate by 50% to reduce the severity of symptoms. This medication may have an associated drug lab level. Please see MAR for scheduled level. Warning Vesicant/Irritant Medication , Routine Given 05/21/2016 5:42 AM EST 1,500 mg Given 05/20/2016 6:47 AM EST 1,500 mg Given 05/19/2016 6:51 PM EST 1,500 mg vancomycin 1.5 g in sodium chloride 0.9% 250 mL 1,500 mg (1.5 g), Intravenous, EVERY 12 HOURS, First dose on Thu05/21/16 at 2000, Until Discontinued, Maximum infusion rate is 1 gram/hour. If flushing of the face, neck, upper body, arms, and/or back occurs decrease infusion rate by 50% to reduce the severity of symptoms. This medication may have an associated drug lab level. Please see MAR for scheduled level. Warning Vesicant/Irritant Medication , Routine Given 05/23/2016 8:52 AM EST 1,500 mg Given 05/22/2016 8:08 PM EST 1,500 mg Given 05/22/2016 9:49 AM EST 1,500 mg documented in this encounter Active and Recently Administered Medications Times are shown in EST. Scheduled Medication Order 05/26/2016 05/27/2016 05/28/2016 acetaminophen (TYLENOL) tablet 1,000 mg 1,000 mg, Oral, EVERY 6 HOURS, First dose (after last modification) on Thu05/21/16 at 1000, Until Discontinued, Maximum dose of acetaminophen is 4000 mg from all sources in 24 hours., Routine 0433 (Given - Provider: Anastasiia Denney RN)0911 (Given - Provider: Mirian Gambino RN)1603 (Given - Provider: Mirian Gambino RN)2200 (Not Given - Provider: Cami Leonardo RN - Reason: Order parameters not met) 0400 (Not Given - Provider: Cami Leonardo RN - Reason: Patient/family refused)1005 (Given - Provider: Monique Christian RN)1535 (Given - Provider: Monique Christian RN)2146 (Given - Provider: Cami Leonardo RN) 0415 (Given - Provider: Cami Leonardo RN)1132 (Given - Provider: Ryan Fuchs RN) aspirin chewable tablet 81 mg 81 mg, Oral, DAILY, First dose on Thu05/23/16 at 1100, Until Discontinued, Routine 0836 (Given - Provider: Mirian Gambino RN) 1006 (Given - Provider: Monique Christian RN) 0835 (Given - Provider: Lorena Oneal, JADEN) bisacodyl (DULCOLAX) suppository 10 mg (COMPLETED) 10 mg, Rectal, ONCE, 1 dose, On Thu05/26/16 at 1000, Routine 1032 (Given - Provider: Mirian Gmabino RN) bisacodyl (DULCOLAX) suppository 10 mg (COMPLETED) 10 mg, Rectal, ONCE, 1 dose, On Thu05/27/16 at 0845, Routine 1024 (Given - Provider: Monique Christian RN) calciTRIol (ROCALTROL) capsule 0.5 mcg 0.5 mcg, Oral, DAILY, First dose on Thu05/14/16 at 0900, Until Discontinued, Routine 0837 (Given - Provider: Mirian Gambino RN) 1006 (Given - Provider: Monique Christian RN) 0836 (Given - Provider: Lorena Oneal RN) cephalexin (KEFLEX) capsule 500 mg 500 mg, Oral, 4 TIMES DAILY, 20 doses, First dose on Thu05/24/16 at 0900, Last dose on Thu05/28/16 at 2100, Routine, Indication for (Active or Suspected): Urinary Tract/Pyelonephritis 0838 (Given - Provider: Mirian Gambino RN)1259 (Given - Provider: Mirian Gambino RN)1605 (Given - Provider: Mirian Gambino RN)2036 (Given - Provider: Cami Leonardo RN) 1008 (Given - Provider: Monique Christian RN)1535 (Given - Provider: Monique Christian RN)1845 (Given - Provider: Monique Christian RN)2327 (Given - Provider: Cami Leonardo RN) 0836 (Given - Provider: Lorena Oneal RN)1228 (Given - Provider: Ryan Fuchs RN) heparin (porcine) subcutaneous injection 5,000 Units 5,000 Units, Subcutaneous, EVERY 12 HOURS SCHEDULED (2 times per day), First dose on Thu05/21/16 at 0000, Until Discontinued, Routine 0840 (Not Given - Provider: Mirian Gambino RN - Reason: Patient/family refused)2100 (Not Given - Provider: Cami Leonardo RN - Reason: Patient/family refused) 0900 (Not Given - Provider: Monique Christian RN - Reason: Patient/family refused)2019 (Not Given - Provider: Keyana Moy RN - Reason: Patient/family refused) 0900 (Not Given - Provider: Lorena Oneal RN - Reason: Patient/family refused) hydrALAZINE (APRESOLINE) injection 10 mg (COMPLETED) 10 mg, Intravenous, ONCE, 1 dose, On Thu05/26/16 at 1615 1601 (Given - Provider: Mirian Gambino RN) hydrALAZINE (APRESOLINE) injection 10 mg (COMPLETED) 10 mg, Intravenous, ONCE, 1 dose, On Thu05/27/16 at 1100 1107 (Given - Provider: Monique Christian RN) hydrALAZINE (APRESOLINE) injection 10 mg (COMPLETED) 10 mg, Intravenous, ONCE, 1 dose, On Thu05/28/16 at 0430 0415 (Given - Provider: Cami Leonardo RN) hydrALAZINE (APRESOLINE) injection 10 mg (COMPLETED) 10 mg, Intravenous, ONCE, 1 dose, On Thu05/28/16 at 0530 0613 (Given - Provider: Cami Leonardo RN) lactulose (CHRONULAC) 20 gram/30 mL oral solution 10 g 10 g, Oral, DAILY, First dose on Thu05/26/16 at 1015, Until Discontinued, Routine 1031 (Given - Provider: Mirian Gambino RN) 1015 (Given - Provider: Monique Christian RN) 0839 (Given - Provider: Lorena Oneal RN) levothyroxine (SYNTHROID) tablet 100 mcg 100 mcg, Oral, EVERY MORNING, First dose on Thu05/24/16 at 0600, Until Discontinued, Routine 0503 (Given - Provider: Anastasiia Denney RN) 0610 (Given - Provider: Cami Leonardo RN) 0613 (Given - Provider: Cami Leonardo RN) magnesium sulfate 2 g in sterile water 50 mL (COMPLETED) 2 g, Intravenous, ONCE, 1 dose, On Thu05/26/16 at 1515, Administer over 120 Minutes 1604 (Given - Provider: Mirian Gambino RN) meTOPROLOL tartrate (LOPRESSOR) tablet 25 mg (CANCELED) 25 mg, Oral, EVERY 12 HOURS SCHEDULED (2 times per day), First dose on Thu05/24/16 at 0900, Until Discontinued, Hold for SBP < 120 or HR < 55bpm, Routine 0840 (Given - Provider: Mirian Gambino RN)2034 (Given - Provider: Cami Leonardo RN) 100 (Given - Provider: Monique Christian RN) meTOPROLOL tartrate (LOPRESSOR) tablet 50 mg 50 mg, Oral, EVERY 12 HOURS SCHEDULED (2 times per day), First dose (after last modification) on Thu05/27/16 at 2100, Until Discontinued, Hold for SBP < 120 or HR < 55bpm, Routine 2013 (Given - Provider: Keyana Moy RN) 0836 (Given - Provider: Lorena Oneal RN) mycophenolate (CELLCEPT) capsule 250 mg 250 mg, Oral, 2 TIMES DAILY, First dose on Thu05/24/16 at 0900, Until Discontinued, DO NOT CRUSH OR OPEN, Routine 0838 (Given - Provider: Mirian Gambino RN)2035 (Given - Provider: Cami Leonardo RN) 1006 (Given - Provider: Monique Christian, JADEN)2012 (Given - Provider: Keyana Moy RN) 0837 (Given - Provider: Lorena Oneal RN) pantoprazole (PROTONIX) tablet 40 mg 40 mg, Oral, DAILY, First dose on Thu05/25/16 at 0900, Until Discontinued, DO NOT CRUSH OR OPEN 0836 (Given - Provider: Mirian Gambino RN) 101 (Given - Provider: Monique Christian RN) 0837 (Given - Provider: Lorena Oneal RN) potassium chloride 10 mEq in 100 mL (COMPLETED) 10 mEq, Intravenous, EVERY HOUR, 3 doses, First dose on Thu05/26/16 at 1000, Last dose on Thu05/26/16 at 1200, Administer over 60 Minutes, -Use only for pateint who is NPO, lacks enteral access, or potassium level less than 2.8 mMol/L -Doses in excess of 40 mEq potassium require re-checking STAT serum potassium level 1.5 hours after completion of last dose and prior to administration of additional doses. Administer each 10 mEq/100 mL dose over 60 minutes. 1028 (Given - Provider: Mirian Gambino RN)1142 (Given - Provider: Mirian Gambino RN)1200 (Given - Provider: Mirian Gambino RN) potassium chloride 10 mEq in 100 mL (COMPLETED) 10 mEq, Intravenous, EVERY HOUR, 2 doses, First dose on Thu05/27/16 at 0900, Last dose on Thu05/27/16 at 1000, Administer over 60 Minutes, -Use only for pateint who is NPO, lacks enteral access, or potassium level less than 2.8 mMol/L -Doses in excess of 40 mEq potassium require re-checking STAT serum potassium level 1.5 hours after completion of last dose and prior to administration of additional doses. Administer each 10 mEq/100 mL dose over 60 minutes. 1107 (Given - Provider: Monique Christian RN)1335 (Given - Provider: Monique Christian RN) senna-docusate (PERICOLACE) 8.6-50 mg per tablet 4 tablet 4 tablet, Oral, 2 TIMES DAILY, First dose on Thu05/23/16 at 1100, Until Discontinued, Routine 0836 (Given - Provider: Mirian Gambino RN)2034 (Given - Provider: Cami Leonardo RN) 101 (Given - Provider: Monique Christian RN)2013 (Given - Provider: Keyana Moy RN) 0838 (Given - Provider: Lorena Oneal RN) sodium chloride 0.9 % flush 5 mL 5 mL, Intravenous, 2 TIMES DAILY, First dose on Thu05/13/16 at 2100, Until Discontinued, Routine 0841 (Given - Provider: Mirian Gambino RN)2035 (Given - Provider: Cami Leonardo RN) 101 (Given - Provider: Monique Christian RN)2019 (Given - Provider: Keyana Moy RN) 0843 (Given - Provider: Lorena Oneal, JADEN) tacrolimus (PROGRAF) capsule 0.5 mg(Linked Group 1) 0.5 mg, Oral, NIGHTLY, First dose (after last modification) on Thu05/21/16 at 2100, Until Discontinued, Routine 2154 (Given - Provider: Cami Leonardo RN) 2145 (Given - Provider: Cami Leonardo RN) tacrolimus (PROGRAF) capsule 1 mg(Linked Group 1) 1 mg, Oral, DAILY, First dose (after last modification) on Thu05/21/16 at 0900, Until Discontinued, Routine 0837 (Given - Provider: Mirian Gambino RN) 1006 (Given - Provider: Monique Christian RN) 0842 (Given - Provider: Lorena Oneal, JADEN - Comment: prograf level drawn by jacques masterson am) tamsulosin (FLOMAX) ER capsule 0.4 mg 0.4 mg, Oral, NIGHTLY, First dose on Thu05/13/16 at 2115, Until Discontinued, DO NOT CRUSH OR OPEN, Routine 2035 (Given - Provider: Cami Leonardo RN) 2012 (Given - Provider: Keyana Moy RN) valGANciclovir (VALCYTE) tablet 450 mg (CANCELED) 450 mg, Oral, 2 TIMES DAILY, First dose on Thu05/13/16 at 2300, Until Discontinued, Routine, Indication for (Active or Suspected): Prophylaxis 0837 (Given - Provider: Mirian Gambino RN)2034 (Given - Provider: Cami Leonardo, JADEN) Continuous Medication Order 05/26/2016 05/27/2016 05/28/2016 sodium chloride 0.9% infusion (CANCELED) 75 mL/hr, Intravenous, CONTINUOUS, Starting on Thu05/26/16 at 1000, Until Thu05/27/16 at 0827 1024 (New Bag - Provider: Mirian Gambino, RN) PRN Medication Order 05/26/2016 05/27/2016 05/28/2016 belladonna-opium (B&O SUPPRETTES) 16.2-60 mg suppository 60 mg 60 mg, Rectal, EVERY 8 HOURS PRN, Pain, Starting on Thu05/20/16 at 2209, Until Thu05/28/16 at 1635 HYDROmorphone (DILAUDID) injection 0.2 mg 0.2 mg, Intravenous, EVERY 2 HOURS PRN, Starting on Thu05/20/16 at 2341, Until Thu05/28/16 at 1635, Pain, for SEVERE pain (7-10), May repeat once in 30 minutes if pain not relieved., Routine lidocaine (XYLOCAINE) 10 mg/mL (1 %) injection 3 mg 3 mg (0.3 mL), Subcutaneous, ONCE PRN, 1 dose, Starting on Thu05/13/16 at 1701, Until Thu05/28/16 at 1635, for discomfort with PIV insertion, Routine naloxone (NARCAN) injection 0.2 mg 0.2 mg, Intravenous, EVERY 1 MIN PRN, Starting on Thu05/13/16 at 1701, Until Thu05/28/16 at 1635, Opioid Reversal, If respiratory rate less than 6 OR the patient is unable to arouse OR SpO2 is declining, Give for respiratory rate of less than or equal to 6 and patient is heavily sedated or unarousable. May repeat every 60 seconds to increase respiratory rate. DO NOT exceed 2 mg total dose., Routine naloxone (NARCAN) injection 0.2 mg 0.2 mg, Intravenous, EVERY 1 MIN PRN, Starting on Thu05/20/16 at 2341, Until Thu05/28/16 at 1635, Opioid Reversal, If respiratory rate less than 6 OR the patient is unable to arouse OR SpO2 is declining, Give for respiratory rate of less than or equal to 6 and patient is heavily sedated or unarousable. May repeat every 60 seconds to increase respiratory rate. DO NOT exceed 2 mg total dose., Recovery (Recovery-Hospital Unit), Routine oxyCODONE (ROXICODONE) immediate release tablet 10 mg(Linked Group 2) 10 mg, Oral, EVERY 4 HOURS PRN, Starting on Thu05/20/16 at 2209, Until Thu05/28/16 at 1635, Pain, moderate pain (4-6), May give additional 5 mg in 30 minutes once if pain not relieved., Routine 0104 (See Alternative - Provider: Anastasiia Denney RN)0504 (See Alternative - Provider: Anastasiia Denney RN)0508 (Given - Provider: Anastasiia Denney RN)0911 (See Alternative - Provider: Mirian Gambino RN)1258 (See Alternative - Provider: Mirian Gambino RN)1708 (See Alternative - Provider: Mirian Gambino, RN)2156 (See Alternative - Provider: Cami Leonardo RN) 0216 (See Alternative - Provider: Cami Leonardo RN)0611 (See Alternative - Provider: Cami Leonardo RN)1014 (See Alternative - Provider: Monique Christian RN)1728 (Given - Provider: Monique Christian RN)2327 (Given - Provider: Cami Leonardo RN) 0415 (Given - Provider: Cami Leonardo RN)0826 (Given - Provider: Rayn Fuchs RN - Comment: per request)1228 (Given - Provider: Ryan Fuchs RN) oxyCODONE (ROXICODONE) immediate release tablet 15 mg(Linked Group 2) 15 mg, Oral, EVERY 4 HOURS PRN, Starting on Thu05/20/16 at 2209, Until Thu05/28/16 at 1635, Pain, severe pain or opiate tolerant patient (7-10), Do not start patient with 15 mg dose. Do not give 15 mg if patient is opiate niave., Routine 0104 (Canceled Entry - Provider: Anastasiia Denney RN - Reason: Entered in Error - Comment: dose given per pt request)0504 (Canceled Entry - Provider: Anastasiia Denney RN - Reason: Entered in Error)0508 (See Alternative - Provider: Anastasiia Denney RN)0911 (Given - Provider: Mirian Gambino RN)1258 (Given - Provider: Mirian Gambino, JADEN)1708 (Given - Provider: Mirian Gambino, JADEN)2156 (Given - Provider: Cami Leonardo RN) 0216 (Given - Provider: Cami Leonardo RN)0611 (Given - Provider: Cami Leonardo RN)1014 (Given - Provider: Monique Christian RN - Comment: pt states his 4 is really like a 7 )1728 (See Alternative - Provider: Monique Christian RN)2327 (See Alternative - Provider: Cami Leonardo RN) 0415 (See Alternative - Provider: Cami Leonardo RN)0826 (See Alternative - Provider: Ryan Fuchs RN)1228 (See Alternative - Provider: Ryan Fuchs RN) oxyCODONE (ROXICODONE) immediate release tablet 5 mg(Linked Group 2) 5 mg, Oral, EVERY 4 HOURS PRN, Starting on Thu05/20/16 at 2209, Until Thu05/28/16 at 1635, Pain, mild pain (1-3), May give additional 5 mg in 30 minutes once if pain not relieved., Routine 0104 (See Alternative - Provider: Anastasiia Denney RN)0504 (See Alternative - Provider: Anastasiia Denney RN)0508 (See Alternative - Provider: Anastasiia Denney RN)0911 (See Alternative - Provider: Mirian Gambino RN)1258 (See Alternative - Provider: Mirian Gambino, JADEN)1708 (See Alternative - Provider: Mirian Gambino, JADEN)2156 (See Alternative - Provider: Cami Leonardo RN) 0216 (See Alternative - Provider: Cami Leonardo RN)0611 (See Alternative - Provider: Cami Leonardo RN)1014 (See Alternative - Provider: Monique Christian RN)1728 (See Alternative - Provider: Monique Christian RN)2327 (See Alternative - Provider: Cami Leonardo, JADEN) 0415 (See Alternative - Provider: Cami Leonardo, JADEN)0826 (See Alternative - Provider: Ryan Fuchs RN)1228 (See Alternative - Provider: Ryan Fuchs RN) sodium chloride 0.9 % flush 5-20 mL 5-20 mL, Intravenous, EVERY 1 MIN PRN, Starting on Thu05/13/16 at 1701, Until Thu05/28/16 at 1635, flush, Flush pertains to all indwelling lines. Flush per protocol found in the job aid using the link provided on this medication record., Routine Linked Groups Order Group 1: tacrolimus (PROGRAF) capsule 1 mgJump to med 1 mg, Oral, DAILY, First dose (after last modification) on Thu05/21/16 at 0900, Until Discontinued, Routine And tacrolimus (PROGRAF) capsule 0.5 mgJump to med 0.5 mg, Oral, NIGHTLY, First dose (after last modification) on Thu05/21/16 at 2100, Until Discontinued, Routine Group 2: oxyCODONE (ROXICODONE) immediate release tablet 5 mgJump to med 5 mg, Oral, EVERY 4 HOURS PRN, Starting on Thu05/20/16 at 2209, Until Thu05/28/16 at 1635, Pain, mild pain (1-3), May give additional 5 mg in 30 minutes once if pain not relieved., Routine Or oxyCODONE (ROXICODONE) immediate release tablet 10 mgJump to med 10 mg, Oral, EVERY 4 HOURS PRN, Starting on Thu05/20/16 at 2209, Until Thu05/28/16 at 1635, Pain, moderate pain (4-6), May give additional 5 mg in 30 minutes once if pain not relieved., Routine Or oxyCODONE (ROXICODONE) immediate release tablet 15 mgJump to med 15 mg, Oral, EVERY 4 HOURS PRN, Starting on Thu05/20/16 at 2209, Until Thu05/28/16 at 1635, Pain, severe pain or opiate tolerant patient (7-10), Do not start patient with 15 mg dose. Do not give 15 mg if patient is opiate niave., Routine documented in this encounter Care Teams Spanish Teacher Relationship Specialty Start Date End Date Urbano Denis DO [address] [place] [address] PCP - General 09/03/12 03/17/22 Ruchi Valles RN Nurse Clinic Transplant Surgery 07/30/15 documented as of this encounter
--- OUTSIDE RECORDS SUMMARY | 2024-02-14 11:30 | XMS_ITS | Encounter Summary ---
[place] [address] Care Team Providers Care Outside Repairer Special Name Role Phone Albania Deins DO Primary Care Provider [phone] Reason for Referral * Consultation (Routine) - Closed Specialty Diagnoses / Procedures Referred By Humberto flor Referred To Contact Infectious Diseases Diagnoses Bacteremia due to coagulase-negative Staphylococcus Ramez Serrano DO [facility] [place] [address] [facility] Infectious Dis [address] [place] [id number] Referral ID Status Reason Start Date Expiration Date V isits Requested Visits Authorized [id number] Closed Assume Subset of Care 04/30/2016 04/30/2017 1 1 Reason for Visit * Auth/Cert Specialty Diagnoses / Procedures Referred By Humberto flor Referred To Contact Diagnoses Fever FEVER, S/P KIDNEY TRANSPLANT Referral ID Status Reason Start Date Expiration Date Visits Re quested Visits Authorized [id number] 1 1 Encounter Details Date Type Department Care Team (Late st Contact Info) Description 04/25/2016 4:32 PM EDT - 04/30/2016 5:23 PM EDT Hospital Encounter [address] [place] [address] Tal Eagle MD [facility] [place] [address] Que Amaro MD [facility] [address] Bacteremia due to coagulase-negative Staphylococcus Discharge Disposition: Home Social History Tobacco Use [...] Sign Reading Time Taken Comments Blood Pressure 149/79 04/30/2016 11:48 AM EDT Pulse 56 04/30/2016 11:16 AM EDT Temperature 36.8 ??C (98.2 ??F) 04/30/2016 11:48 AM E DT Respiratory Rate 20 04/30/2016 11:48 AM EDT Oxygen Saturation 98% 04/30/2016 11:48 AM EDT Inhaled Oxygen Concentration - - Weight 97.2 kg (214 lb 4.6 oz) 04/25/2016 5:42 P M EDT Height 177.8 cm (5' 10) 04/25/2016 5:42 PM EDT Body Mass Index 30.75 04/25/2016 5:42 PM EDT documented in this encounter Discharge Summaries * Marcio Haynes MD - 04/30/2016 2:59 PM EDT Inpatient - Discharge Summary Patient Name: Ethel Akins Patient Age: 65 y.o. Birthdate: 1950 Admit date: 04/25/2016 Discharge date and time: 04/30/2016 Attending Physician: Que Amaro Primary Diagnosis: Fever Secondary Diagnosis: Active Hospital Problems Diagnosis ??? Fever ??? Ureteral stricture ??? Bacteremia due to coagulase-negative Staphylococcus ??? UTI (urinary tract infection) ??? Kidney transplant infection ??? HCV (hepatitis C virus) ??? ESRD (end stage renal disease) ??? 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 DM type 2 (diabetes mellitus, type 2) ??? Hypertension Resolved Hospital Problems Diagnosis Date Resolved No resolved problems to display. Active Non-Hospital Problems Diagnosis ??? RAY (acute kidney injury) ??? Renal failure ??? Chronic kidney disease, stage V ??? Hepatitis C virus infection ??? Essential hypertension ??? DJD (degenerative joint disease) ??? Hematuria HPI: Mr. Akins is a 65 yo male with PMH significant for donor kidney transplant 09/2014 complicated by ureteral stricture requiring multiple dilations and percutaneous nephrostomy-ureteral tubeplacement who presents with complaints of fevers. ?? He was feeling well but developed a fever this morning to 100.8. He took two tylenol without improvement. On the drive down to clinic he began to develop chills and rigors. + urinary frequency but able to void. States his urine is dark in color. No nausea or vomiting. No chest pain or SOB. Feels tired. ?? He has had multiple infectious complications as a result in his stricture, the most recent of whichwas in February of this year that resulted in sepsis requiring mcc antibiotic treatment. He completed his course of antibiotics in March and has been feeling well. He underwent repeat interrogation of his ureter and stent in IR on 03/25- this revealed long segment stricture, not amendable to further percutaneous intervention. He was recently seen in clinic for evaluation and surgical planning for reconstruction with assistance of Urology. ?? Operations/Major Procedures: None Hospital Course: Ethel Akins was admitted and started on vanco and zosyn. Cultures were taken and his NU tube was placed to gravity. ID was consulted. His cultures grew out coagulase negative staphylococcus (not saprophyticus) and his ABX were tapered to Vancomycin. Urology was consulted and they recommended exchange of his NU tube for an indwelling double J ureteral stent and a nephrostomy tube. This was performed by IR on 04/30. Repeat blood cultures were obtained until they were negative. A PICC was placed for IV access on 04/29 after cultures were negative two days in a row. During his admission he was maintained on prograf and cellcept 250 BID. He was discharged to home on a 3 week course of daily IV daptomycin for which he will go to an infusion center. He received a dose of daptomycin prior to discharge and his CK at discharge was 36. He is scheduled to return for reconstruction of his ureter on 05/20/2016. ID recommends broader spectrum antibiotics at the time of surgery, with a week of antibiotics following surgery. He declined home VNA service, but will be seen daily at the infusion suite. Pending Lab Data at Discharge: BK Virus quantitative blood, blood cultures (NGTD) Condition at Discharge: Stable Important Studies and Lab Data: Labs: Last 3 wbc, hgb, hct plt Recent Labs 04/28/16 0606 04/27/16 0536 04/26/16 0621 WBC 6.8 6.9 6.9 HGB 15.0 14.7 15.5 HCT 43.5 42.6 43.8 PLATELET 162 146 177 Last 3 Lytes Recent Labs 04/30/16 0512 04/29/16 0340 04/28/16 0606 NA 140 142 142 K 3.5 3.7 3.5 CL 102 103 104 CO2 25 25 25 BUN 15 12 10 CREATININE 1.10 1.13 1.10 Lab Results Component Value Date CK 36 04/30/2016 TROPONINT <0.03 04/30/2016 Studies: None Exam: Temp: -- Heart Rate: -- Resp: -- BP: -- SpO2: -- Heart Rate from SPO2: -- I/O last 3 completed shifts: In: 1386 [P.O.:120; I.V.:1266] Out: 2845 [Urine:2845] I/O this shift: In: 2308 [P.O.:760; I.V.:1548] Out: 3820 [Urine:3820] Gen: lying in bed, NAD, oriented x3 Pulm: comfortable on room air Card: normal rate/rhythm Abd: non-distended, normal BS, soft, non-tender to palpation, nephrostomy tube in LLQ with clear yellow urine Ext: no edema, 2+ peripheral pulses Discharge to: Home Discharge Conditions/Prognosis: Stable Discharge Medications: Your Medications Continued medications with new dosing Dose Details Magnesium Gluconate 27 mg (500 mg) Tab Take 2 tablets by mouth 4 times daily. What changed: - how much to take - when to take this 2 tablet Refills: 0 Continued medications, unchanged Dose Details acetaminophen 500 mg Tab Commonly known as: TYLENOL Take 1,000 mg by mouth every 6 hours as needed for Pain. 1000 mg Refills: 0 calciTRIol 0.5 mcg Cap Commonly known as: ROCALTROL Take 1 capsule by mouth daily. 0.5 mcg Quantity: 30 capsule Refills: 11 clopidogrel 75 mg Tab Commonly known as: PLAVIX Take 1 tablet by mouth daily. 75 mg Quantity: 30 tablet Refills: 0 DILTiazem 120 mg Cp24 Commonly known as: DILTIAZEM CD Take 1 capsule by mouth daily. 120 mg Quantity: 30 capsule Refills: 11 mycophenolate 250 mg Cap Commonly known as: CELLCEPT Take 1 capsule by mouth 2 times daily. 250 mg Refills: 0 omeprazole 20 mg Cpdr Commonly known as: PriLOSEC Take 20 mg by mouth daily as needed. 20 mg Refills: 0 potassium phosphate (monobasic) 500 mg Tbso Commonly known as: K-PHOS Take 2 tablets by mouth 2 times daily. 1000 mg Quantity: 1 tablet Refills: 0 SYNTHROID 100 mcg Tab Take 100 mcg by mouth daily. Generic drug: levothyroxine 100 mcg Refills: 0 tacrolimus 1 mg Cap Commonly known as: PROGRAF Take 1 mg by mouth 2 times daily. 1 mg Refills: 0 tamsulosin 0.4 mg Cp24 Commonly known as: FLOMAX Take 1 capsule by mouth nightly. 0.4 mg Quantity: 30 capsule Refills: 11 valGANciclovir 450 mg Tab Commonly known as: VALCYTE Take 1 tablet by mouth 2 times daily. 450 mg Quantity: 30 tablet Refills: 3 STOPPED Medications sulfamethoxazole-trimethoprim 400-80 mg Tab Commonly known as: BACTRIM;SEPTRA ? [address] [address] Fax: ? Member Information? PCP Information?? Name: ?? Ethel Akins? PCP: ALBANIA DENIS, DO?? :?? 1950? Address:?? [address] [place] [address]? PCP PH: [phone] PCP ?? Phone:? Referring Provider Information? Urgency of Referral?? Name:?? RAMEZ SERRANO? Phone:?? [phone]? Routine? Fax: NPI#? [id number]? Ordered and Electronically Signed by: ?? Ramez Serrano, DO ?? Authorized by: ?? Ramez Serrano, DO ?? Primary Coverage ?? Payor Plan Group Number Group Name MEDICARE MEDICARE PART A & B ? Primary Subscriber ?? Subscriber Name ETHEL AKINS Patricia ? OPAT: Order / Recommendation for Post Discharge IV Antibiotic Management To: ?? Specialty: ?? ID Diagnosis: Bacteremia; UTI Microorganisms being treated: CoNS Antibiotic Allergies: none Antibiotic (one line for each ABx): Daptomycin 775 mg IV Daily Start date: 04/26/2016 Anticipated stop date: 05/20/2016 Labs: Every Thursday: CBC, CMP (CPK every Thursday) Last documented weight (kg): 97.2 kg (214 lb 4.6 oz) Last documented height (cm): 177.8 cm (5' 10) Responsible Attending: Ramez Serrano, DO ?? Please Fax all results to: OPAT Program Infectious Disease Section [facility], [place] [address] FAX: ?? Line care instructions per [facility] OPAT Program protocol. ?? After hours, please contact the Infectious Disease Physician non destructive testing technician at . ?? If this order was signed greater than 72 hours prior to [facility] discharge, please call to confirm the accuracy of this order. ? Referral Information?? Reference# [id number]?? Referral type: Consultation?? # Visits requested: 1?? Referral Reason: Assume Subset of Care?? Start Date: Apr 30, 2016?? End Date: To be determined by Insurer?? Diagnosis: Bacteremia due to coagulase-negative Staphylococcus (R78.81)? This document serves as a request of services and does not constitute Insurance authorization or approval of services. To determine eligibility, please contact the members Insurance carrier to verifyand review coverage. ?? If you have medical questions regarding this request for services, please contact [facility] at [phone] between the hours of 8:00am-5:00pm (Mon - Fri).? Updated Allergies/ADRs: No KnowNo Known Allergiesw-up Recommendations for Providers: Continue daily IV abx until 1 week after surgery. PCP: LANIE DENIS, DOheduled Appointments: Fut Future Appointments Date Time Provider Department Center 05/13/2016 10:00 AM LAB, [facility] L [facility] 05/13/2016 11:00 AM Que Amaro MD Leb Trans 2M [facility] 06/03/2016 9:00 AM Tulio Marcelo MD Leb Gastro [facility] 09/15/2016 9:00 AM LAB, [facility] L Lab [facility] 09/15/2016 10:00 AM Tal Eagle MD Le[facility] Trans 2[facility] tpatient Services/Studies: OPAT: Order / Recommendation for Post Discharge IV Antibiotic Management Referral Priority: Routine Referral Type: Consultation Referral Reason: Assume Subset of Care Number of Visits Requested: 1 Instructions Given to Patient at Discharge:. An After Visit Summary was printed and given to the patient. Patient Instructions [facility] Department of Transplant Surgery Discharge Instructions CALL YOUR PHYSICIAN'S OFFICE IF: ??? You [...] swelling, or new drainage from your wound. Antibiotics You have been prescribed daily infusions of Daptomycin via your PICC line. You will continue these infusions until the time of your surgery. Nephrostomy tube Please keep the tube draining to a gravity bag at all times. Follow-up: - Follow-up appointment will be scheduled with Dr. Amaro in 2 weeks. Appointment will be mailed to you. Please call [phone] (clinic number for appointments) to confirm date and time of your appointment if you do not receive your apointment in 1 week. During the night or weekends call the [facility] rope twisting machine operator at [phone] and ask to speak to the surgery resident non destructive testing technician for general surgery. - You are scheduled for surgery on 05/20/2016. You will receive more information regarding this surgery at your follow up visit in 2 weeks. Please note: Your surgeon may not be Data Entry Supervisor, especially during the night or on weekends, so be ready to describe yourself and your surgery when you call. Future Appointments Date Time Provider Department Center 05/13/2016 10:00 AM LAB, THREE L Lab 3L [facility] 05/13/2016 11:00 AM Que Amaro MD Leb Trans 2M [facility] 06/03/2016 9:00 AM Tulio Marcelo MD Leb [facility] 09/15/2016 9:00 AM LAB, THREE L Lab [facility]L [facility] 09/15/2016 10:00 AM Tal Eagle MD Leb Trans [facility] General Instructions Office of Care Management/ Senior Svp(CM) Infusion Room Referral for Outpatient IV Antibiotic Therapy Dr. Haynes pefsherwin pt for continued home IV antibiotic therapy after discharge from the hospital. Patient requested referral to [facility] Infusion Room Confirmed availability of service with infusion room nurse. Documentation faxed to Infusion Room via [employer] Patient to report to [facility] on 05/01/16 at 2:00 PM. Diabetic Status: Patient is a diabetic. IV access: Type of line: PICC Date placed: 04/29/16 Signed: Marcio Haynes MD documented in this encounter Discharge Instructions * Discharge Instructions* Malina Phelan RN - 05/01/2016 12:15 PM EDT Office of Care Management/ Senior Svp(CM) Infusion Room Referral for Outpatient IV Antibiotic Therapy Dr. Haynes pefsherwin pt for continued home IV antibiotic therapy after discharge from the hospital. Patient requested referral to [facility] Infusion Room Confirmed availability of service with infusion room nurse. Documentation faxed to Infusion Room via [employer] Patient to report to [facility] on 05/01/16 at 2:00 PM. Diabetic Status: Patient is a diabetic. IV access: Type of line: PICC Date placed: 04/29/16 * Patient Instructions* Marcio Haynes MD - 04/29/2016 4:27 PM EDT [facility] Department of Transplant Surgery Discharge Instructions CALL YOUR PHYSICIAN'S OFFICE IF: ??? You [...] swelling, or new drainage from your wound. Antibiotics You have been prescribed daily infusions of Daptomycin via your PICC line. You will continue these infusions until the time of your surgery. Nephrostomy tube Please keep the tube draining to a gravity bag at all times. Follow-up: - Follow-up appointment will be scheduled with Dr. Amaro in 2 weeks. Appointment will be mailed to you. Please call [phone] (clinic number for appointments) to confirm date and time of your appointment if you do not receive your apointment in 1 week. During the night or weekends call the [facility] rope twisting machine operator at [phone] and ask to speak to the surgery resident non destructive testing technician for general surgery. - You are scheduled for surgery on 05/20/2016. You will receive more information regarding this surgery at your follow up visit in 2 weeks. Please note: Your surgeon may not be Data Entry Supervisor, especially during the night or on weekends, so be ready to describe yourself and your surgery when you call. Future Appointments Date Time Provider Department Center 05/13/2016 10:00 AM [facility] 05/13/2016 11:00 AM Que Amaro MD Leb Trans 2[facility] 06/03/2016 9:00 AM Tulio Marcelo MD Leb Gastro [facility] 09/15/2016 9:00 AM LAB[facility] 09/15/2016 10:00 AM Tal Eagle MD Leb Trans 2[facility] documented in this encounter Medications at Time of Discharge Medication Sig Dispensed Refills Start Date End Date levothyroxine (SYNTHROID) 100 mcg Tablet Take 100 mcg by mouth daily. 04/22/2016 09/09/2017 acetaminophen (TYLENOL) 500 mg Tablet Take 1,000 mg by mouth every 6 hours as needed for Pain. Reported on 09/15/2016 11/26/2017 valGANciclovir (VALCYTE) 450 mg Tablet Take 1 tablet by mouth 2 times daily. 30 tablet 3 02/05/2016 05/28/2016 omeprazole (PRILOSEC) 20 mg Capsule, Delayed Release(E.C.) Take 20 mg by mouth daily as needed. 08/12/2016 mycophenolate (CELLCEPT) 250 mg Capsule Take 1 capsule by mouth 2 times daily. 01/03/2016 12/10/2016 potassium phosphate, monobasic, (K-PHOS) 500 mg Tablet, Soluble Take 2 tablets by mouth 2 times daily. 1 tablet 12/13/2015 05/28/2016 Magnesium Gluconate 27 mg (500 mg) Tablet Take 2 tablets by mouth 4 times daily. 11/16/2015 05/28/2016 tamsulosin (FLOMAX) 0.4 mg Capsule, Sust. Release 24 hr Take 1 capsule by mouth nightly. 30 capsule 11 11/15/2015 06/18/2016 calciTRIol (ROCALTROL) 0.5 mcg Capsule Take 1 capsule by mouth daily. 30 capsule 11 11/15/2015 06/18/2016 tacrolimus (PROGRAF) 1 mg Capsule Take 1 mg by mouth 2 times daily. 05/28/2016 DILTiazem (DILTIAZEM CD) 120 mg Capsule, Sust. Release 24 hr Take 1 capsule by mouth daily. 30 capsule 09/17/2015 05/28/2016 clopidogrel (PLAVIX) 75 mg Tablet Take 1 tablet by mouth daily. 30 tablet 0 05/12/2015 05/28/2016 documented as of this encounter Progress Notes * Malina Phelan RN - 04/30/2016 5:23 PM EDT DEVORA Phelan, MSN, RN P: [phone] Service: Transplant Patient medically ready for discharge to home today. to drive home. Patient to receive outpatient antibiotics once per day at [facility] in [place], [place]. Patient has refused the services of a VNA. * Carmenza Shaw RN - 04/30/2016 5:23 PM EDT OPAT Program/Infectious Disease Infusion Room Referral for Outpatient IV Antibiotic Therapy Patient has been referred for outpatient IV ABX to: [facility] [address] [place] [address] IV access: Type of line: PICC Date placed: 04/29/16 Carmenza Morgan. MARK Shaw, ACM-RN, pager [phone] * Brandee Akins RN - 04/30/2016 4:41 PM EDT Pt discharged home via car with . To receive daily ABX therapy at an infusion center. Refused VNA. Masimo and IV discontinued. Medications picked up at outpatient pharmacy. AVS reviewed and provided to pt. All questions and concerns addressed. Nothing further at this time. * Malina Phelan RN - 04/30/2016 3:12 PM EDT Office of Care Management/ Senior Svp(CM) Infusion Room Referral for Outpatient IV Antibiotic Therapy Dr. Ivy broderick pt for continued home IV antibiotic therapy after discharge from the hospital. Patient requested referral to [facility] Infusion Room Confirmed availability of service with infusion room nurse. Documentation faxed to Infusion Room via [employer] Patient to report to [facility] on 05/01/16 at 2:00 PM Diabetic Status: Patient is a diabetic. IV access: Type of line: PICC Date placed: 04/29/16 . * Ramez Serrano DO - 04/30/2016 1:14 PM EDT INFECTIOUS DISEASE FOLLOW-UP NOTE Active ID Issue(s): CoNS UTI and bacteremia Antimicrobial Therapy: vancomycin Intercurrent Events/Subjective Data: - PICC placed yesterday - nephrostomy tube being exchanged today - no new clinical events reported - plan for surgery 05/20 Physical Exam: Last value Range last 24 hrs Temperature Temp: 36.8 ??C (98.2 ??F) Temp: [36.5 ??C (97.7 ??F)-36.9 ??C (98.4 ??F)] Patient was off the floor for nephrostomy exchange Laboratory: Lab Results Component Value Date WBC 6.8 04/28/2016 HGB 15.0 04/28/2016 HCT 43.5 04/28/2016 PLATELET 162 04/28/2016 Lab Results Component Value Date CREATININE 1.10 04/30/2016 Lab Results Component Value Date ALT 25 04/25/2016 AST 23 04/25/2016 ALKPHOS 63 04/25/2016 BILITOT 1.6 (H) 04/25/2016 Microbiology: Blood Cultures: 04/25 ?? Coagulase negative staphylococcus species ? MICROSCAN METHOD ? Amoxicillin + Clavulanate Resistant ? Ampicillin Resistant ? Ampicillin + Sulbactam Resistant ? Cefazolin Resistant ? Ceftriaxone Resistant ? Ciprofloxacin Resistant ? Clindamycin Sensitive ? Daptomycin Sensitive ? Erythromycin Sensitive ? Gentamicin Resistant 1 ? Levofloxacin Resistant ? Oxacillin Resistant ? Penicillin Resistant ? Tetracycline Sensitive ? Trimethoprim/Sulfa Resistant ? Vancomycin Sensitive 04/26 negative Urine Cultures: 04/25 nephrostomy 1-10k coagulase-negative staphylococcus aureus ?? 04/25 clean catch 50-10k coagulase-negative staphylococcus aureus ?? Assessment: Ethel Akins 65 y.o. male with a history HCV, DM, HTN and renal failure due to hypertensive nephropathy, who received a donor kidney transplantation in 09/2015, which has been complicated by a ureteral stricture, requiring a permanent percutaneous nephrostomy despite multiple dilatations. He has had multiple bouts of bacteremia and is now again admitted with coagulase- negative staphylococcus aureus UTI and bacteremia. Blood culture negative 04/26. Nephrostomy exchanged 04/30. Mr. Akins's insurance does not cover home infusion therapy, so we recommend to change his vancomycin to a daptomycin, which can be given once daily. We recommend to treat until and through his planned surgery on 05/20 ?? Recommendations: - daptomycin 775 mg (8mg/kg) IV daily through 05/20 - weekly CBC, CMP, CK - please give first dose of daptomycin now and check CK - OPAT team is placing orders - No outpatient ID follow up indicated at this time ?? This patient was seen and discussed with ID attending Dr. Serrano. Recommendations discussed with primary treating team. ? Franko Kim MD Infectious Disease Fellow Pager [phone] ?? I have seen the patient and reviewed the above history and physical and I agree with the details aswritten. The assessment and plan were formulated in discussion with me and I agree with them as documented. Recurrent CoNS bacteremia/UTI in the setting of PCN and ureteral stent. Doing well clinically. Denies any fever/chills. No abdominal pain. No nausea/vomiting/diarrhea. Urinating little through urethra without dysuria. PCN and stent exchanged and tubing with some flecks of blood. Abd soft with good b owel sounds. No pain over kidney. PICC looks good. Lungs are clear anteriorly and heart is regular.Plan to discharge on Daptomycin for ease of outpatient administration given insurance issues and need to go to infusion suite daily. Will need 2-3 week course depending on timing of corrective surgery. Please call with any questions. Ramez Serrano DO, MPH Infectious Disease * Hebert Moreira W - 04/30/2016 9:57 AM EDT VIR PRE-PROCEDURE VIR NOTE ADDENDUM Name: Ethel Akins Date of : 1950 Procedure: Conversion of nephroureterostomy to nephrostomy and JJ ureteral stent Physical Examination: Chest: clear to auscultation, no wheezes, Heart: normal rate, regular rhythm, Abdomen: soft, nontender, nondistended, ASA 2 - Patient with mild systemic disease with no functional limitations Mallampati III (soft palate, base of uvula visible) The planned procedure, its benefits/risks and alternatives were discussed with the patient and consent was given. Hebert Harish * Joanne Mackey - 04/29/2016 7:38 PM EDT Telemetry Nurse Encounter Note Patient Name: Ethel Akins : [id number] MR#: [id number] Admit Date: 04/25/2016 4:32 PM Hospital Day 4 days Narrative Responded to referral by unit nurse. Eating dinner and welcomed visit. He was ready to talk about things of interest to him - home, , and why he is in the hospital. Assessment: He seems ready to have the next operation. He stated he is tired of the multiple hospitalizations from this kidney transplant. Expressed feeling tough and can deal with what comes next as he has manystruggles in his life. 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 Because of his service, he stated that he will be tough in light of the next procedure. Follow-up: None expected. Time in Direct Care: 15 mins Joanne Mackey 04/29/2016 * Marisela Miller RN - 04/29/2016 2:13 PM EDT [employer] NURSING DATABASE Name: ETHEL AKINS Date of : 1950 AGE 65 y.o. Address: [address] [place] [id number] (home) [phone] (work) Mobile: Telephone Information: Referring Provider: No ref. provider found REASON FOR VISIT: Order Questions Question Answer Comment Laterality Left Is the patient on anticoagulant / anitplatelet therapy ? Heparin Reason for exam and clinical history: S/p renal transplant in September, c/b stricture s/p neph tube intxp kidney, now with urosepsis. ID/urology recommend ??exchange of nephrostomy tube Exam/Procedure requested: Nephrostomy tube exchange Requested Date 04/29/2016 No Known Allergies Pertinent PMH: Patient Active [...] coagulase-negative Staphylococcus R78.81 ??? Ureteral stricture N13.5 Pertinent PSH: Past Surgical History Procedure Laterality Date ??? Pro anastomosis, av, any site Left 05/09/2015 AV FISTULA CREATION, DIRECT HEMODIALYSIS, ANY SITE, EG ASHWINI FISTULA UPPER EXTREMITY performed by Que Amaro MD at [facility] OR ??? Pro transplantation of kidney N/A 09/16/2015 @KIDNEY TRANSPLANT, WITHOUT RECIPIENT NEPHRECTOMY performed by Franko Larkin MD at [facility] OR ??? Pro transplant, prep cadaver renal graft N/A 09/16/2015 @PREPARATION CADAVERIC RENAL ALLOGRAFT performed by Franko Larkin MD at [facility] OR ??? N/A 09/16/2015 ORGAN ACQUISITION RENAL, CADAVERIC performed by Franko Larkin MD at [facility] OR Date/Procedure? Med's given/comments 01/08/2015: Tunneled HD [...] fentanyl 100 mcg ,versed 2 mg iv 04/30/16 Left Neph tube to PCN and placement of JJ stent Fentanyl 100 mcg IV, Versed 1.5 mg IV ? 1015 To procedure room 2 via stretcher. Onto table supine. All monitors, O2, safety strap in place.Med's per protocol. Laboratory Results: Lab Results Component Value Date INR 1.0 02/01/2016 Lab Results Component Value Date CREATININE 1.13 04/29/2016 Lab Results Component Value Date K 3.7 04/29/2016 Lab Results Component Value Date PLATELET 162 04/28/2016 Medications: Prior to Admission medications Medication Sig Start Date End Date Taking? Authorizing Provider levothyroxine (SYNTHROID) 100 mcg Tablet Take 100 mcg by mouth daily. 04/22/16 PROVIDER, HISTORICAL acetaminophen (TYLENOL) 500 mg Tablet Take 1,000 mg by mouth every 6 hours as needed for Pain. PROVIDER, HISTORICAL sulfamethoxazole-trimethoprim (BACTRIM;SEPTRA) 400-80 mg Tablet Take 1 tablet by mouth daily for 364 days. 03/20/16 03/19/17 Tal Eagle MD valGANciclovir (VALCYTE) 450 mg Tablet Take 1 tablet by mouth 2 times daily. 02/05/16 John Keyes MD omeprazole (PRILOSEC) 20 mg Capsule, Delayed Release(E.C.) Take 20 mg by mouth daily as needed. PROVIDER, HISTORICAL mycophenolate (CELLCEPT) 250 mg Capsule Take 1 capsule by mouth 2 times daily. 01/03/16 Victor Manuel Torre MD potassium phosphate, monobasic, (K-PHOS) 500 mg Tablet, Soluble Take 2 tablets by mouth 2 times daily. 12/13/15 Joanie Sim MD Magnesium Gluconate 27 mg (500 mg) Tablet Take 2 tablets by mouth 4 times daily. Patient taking differently: Take 4 tablets by mouth 2 times daily. 11/16/15 Abelino Alva MD tamsulosin (FLOMAX) 0.4 mg Capsule, Sust. Release 24 hr Take 1 capsule by mouth nightly. 11/15/15 11/14/16 Que Amaro MD calciTRIol (ROCALTROL) 0.5 mcg Capsule Take 1 capsule by mouth daily. 11/15/15 11/14/16 Que Amaro MD tacrolimus (PROGRAF) 1 mg Capsule Take 1 mg by mouth 2 times daily. PROVIDER, HISTORICAL DILTiazem (DILTIAZEM CD) 120 mg Capsule, Sust. Release 24 hr Take 1 capsule by mouth daily. 09/17/15Que chavis MD clopidogrel (PLAVIX) 75 mg Tablet Take 1 tablet by mouth daily. Patient not taking: Reported on 04/23/2016 05/12/15 Kendrick Del Castillo MD * Alessandro Ferrell MD - 04/29/2016 10:52 AM EDT VASCULAR AND INTERVENTIONAL RADIOLOGY FOCUSED H&P and PRE-PROCEDURE NOTE: PCP: ALBANIA DENIS DO Referring Physician: No ref. provider found Planned Procedure: Conversion of nephroureterostomy to nephrostomy and JJ ureteral stent. Procedure Indication: Ureteral stenosis in transplant kidney. Presenting Diagnosis/ Complaint: Ethel Akins is a 65 y.o. male s/p renal transplant in September complicated by stricture requiring nephrostomy tube placement. The patient is now presenting with urosepsis, and we are consulted for exchange of the nephrostomy tube. Torie Edmonds of the transplant surgery service stopped by IR 04/28 to discuss procedure. They wouldlike conversion of the transplant NU for a PCN and JJ stent. She reports that trans plant has shortJJ stents if needed. Past Medical/Surgical History: Patient Active Problem List Diagnosis Code [...] ??? Bacteremia due to coagulase-negative Staphylococcus R78.81 Past Medical History Diagnosis Date ??? Back [...] EXTREMITY performed by Que Amaro MD at [facility] OR ??? Pro transplantation of kidney N/A 09/16/2015 @KIDNEY TRANSPLANT, WITHOUT RECIPIENT NEPHRECTOMY performed by Franko Larkin MD at [facility] OR ??? Pro transplant, prep cadaver renal graft N/A 09/16/2015 @PREPARATION CADAVERIC RENAL ALLOGRAFT performed by Franko Larkin MD at [facility] OR ??? N/A 09/16/2015 ORGAN ACQUISITION RENAL, CADAVERIC performed by Franko Larkin MD at [facility] OR Medications: No current facility-administered medications on file prior to encounter. Current Outpatient Prescriptions on File Prior to Encounter Medication Sig Dispense Refill ??? levothyroxine (SYNTHROID) 100 mcg Tablet Take 100 mcg by mouth daily. ??? acetaminophen (TYLENOL) 500 mg Tablet Take 1,000 mg by mouth every 6 hours as needed for Pain. ??? sulfamethoxazole-trimethoprim (BACTRIM;SEPTRA) 400-80 mg Tablet Take 1 tablet by mouth daily for 364 days. 90 tablet 3 ??? valGANciclovir (VALCYTE) 450 mg Tablet Take [...] taking: Reported on 04/23/2016) 30 tablet 0 Allergies: Review of patient's allergies indicates no [...] History: No family history on file. Physical Examination: Pending (to be assessed in angio the day of procedure) ASA: Pending (to be assessed in angio the day of procedure) Mallampati Class: Pending (to be assessed in angio the day of procedure) Labs: Lab Results Component Value Date WBC 6.8 04/28/2016 ANC 2.99 12/07/2015 HCT 43.5 04/28/2016 PLATELET 162 04/28/2016 INR 1.0 02/01/2016 BUN 12 04/29/2016 CREATININE 1.13 04/29/2016 ALKPHOS 63 04/25/2016 AST 23 04/25/2016 ALBUMIN 4.3 04/25/2016 BILIDIR 0.3 04/25/2016 BILITOT 1.6 (H) 04/25/2016 ALT 25 04/25/2016 PROT 7.7 04/25/2016 Imaging: No recent relevant imaging. Assessment/Plan: Proceed with nephrostomy exchange and placement of JJ ureteral stent. Labs to be performed day of procedure: platelets, INR Medication to STOP: None (not taking prescribed plavix per chart review) Sedation: Moderate sedation per IR RN protocols Prophylactic antibiotic: on bactrim already Additional medications for procedure: none Planned access site: Posterior Position: Prone Consent: Pending Libia Lake MD Pager #[phone] * Que Amaro MD - 04/29/2016 8:19 AM EDT ID: 65 yo male with PMH significant for donor kidney transplant 09/2015 complicated by ureteral stricture requiring multiple dilations and percutaneous nephrostomy tube placement who presentswith complaints of fevers likely secondary to UTI with sepsis 24 hr/S: Continues to feel well, is afebrile No events O: Last value Range last 24hrs Temperature Temp: 36.6 ??C (97.9 ??F) Temp: [36.4 ??C (97.5 ??F)-36.7 ??C (98.1 ??F)] Heart Rate Heart Rate: 62 Heart Rate: -- Blood Pressure BP: 131/67 BP: (131-142)/(67-73) Respiratory Rate Resp: 18 Resp: [18-20] SpO2 SpO2: 97 % SpO2: [92 %-97 %] RA I/O last 3 completed shifts: In: 3896 [P.O.:1420; I.V.:2376; IV Piggyback:100] Out: 7125 [Urine:7125] Gen: well appearing, up to chair CV: RRR Pulm: CTAB Abd: soft, minimal TTP over left kidney, neph tube to gravity, urine clear Ext: wwp Recent Labs 04/29/16 0340 04/28/16 0606 04/27/16 0536 WBC -- 6.8 6.9 HGB -- 15.0 14.7 PLATELET -- 162 146 NA 142 142 136 K 3.7 3.5 3.3* CL 103 104 100 CO2 25 25 22 BUN 12 10 13 CREATININE 1.13 1.10 1.38 MAGNESIUM 0.64* 0.67* 0.56* PHOS 2.9 2.5 1.7* GLUCOSE 168 -- -- Urine Culture -- (A) ? 50,000-99,000 cfu/ml Coagulase negative Staphylococcus species Susceptibility testing not routinely performed for Coagulase Negative Staphylococcus species and other Gram Positive organisms from urine. 10,000-49,000 cfu/ml mixed mucosal gareth Blood Culture -- (A) ? Coagulase negative Staphylococcus species detected by PCR Interpretation of the importance of skin gareth such as Coagulase Negative Staph, Viridans Strep, Corynebacteria and other Gram Positive organisms from a single Blood Culture set requires clinical correlation. ? Gram Stain Anaerobic -- (A) ? Growth detected in anaerobic bottle. Gram Positive Cocci in clusters seen Results called to and read back by DR. PACK. 04/26 Blood cultures NGTD, UA negative Assessment: 65 yo male with PMH significant for donor kidney transplant 09/2014 complicatedby ureteral stricture requiring multiple dilations and percutaneous nephrostomy tube placement who presents with complaints of fevers. Likely??UTI with sepsis, staph bacteremia. ID onboard, continue vancomycin, follow up repeat cultures. Plan: Continue vancomycin, plan for OPAT, R arm PICC today Prograf therapeutic IR tomorrow for neph tube exchange and J tube placement Regular diet Aggressively replete lytes. Daily labs Neph tube to gravity at all times Immunosuppression: Prograf 1,1 Cellcept 250 BID Marcio Haynes MD Transplant Surgery [id number] I have seen the patient and reviewed the resident's above history and I agree with the details as written. The assessment and plan were formulated in discussion with me and I agree with them as documented. Remains afebrile and blood + urine cultures remain negative. Normal WBC ct. He feels well today andhas no complaints. Cr level is stable and normal today. We are arranging for outpatient abx and PICC line today. Will make NPO p MN for IR revision of his current NU tube to an indwelling ureteral stent + nephrostomy tube tomorrow in preparation for his surgery in a few weeks. Immunosuppression reviewed and adjusted: Prograf 1/ and trough level 7.1. No adjustments Cellcept 250 mg po bid, no adjustments Stable, floor status. NPO after MN for his procedure tomorrow. Restart Plavix after the procedure and plan for a 7 day hold prior to his surgery. * Malina Phelan RN - 04/28/2016 11:17 AM EDT Office of Care Management/Senior Svp(CM) Home IV Antibiotic Therapy Referral Note. Report received from Dr. Amaro that patient will require continued home IV antibiotic therapy after discharge from the hospital. Met with patient/family to discuss vendor and visiting nurse choices for home IV antibiotic therapy. Reviewed Home Infusion Vendors and Home Health Agencies that serve patient???s address and accept patient???s insurance. Home Health Agency: [facility]. ?? PHONE: [phone] ??FAX: [phone] Referrals sent via edischarge. Home Infusion Vendor: Patient requested referral to [facility]. Referrals sent via edischarge. Diabetic Status: Patient is a diabetic. IV access: Type of line: Picc Date placed: to be placed today or tomorrow. * Marcio Haynes MD - 04/28/2016 9:07 AM EDT ID: 65 yo male with PMH significant for donor kidney transplant 09/2015 complicated by ureteral stricture requiring multiple dilations and percutaneous nephrostomy tube placement who presentswith complaints of fevers likely secondary to urosepsis 24 hr/S: Afebrile, feeling much better this morning OOB to chair No events O: Last value Range last 24hrs Temperature Temp: 36.4 ??C (97.5 ??F) Temp: [36.4 ??C (97.5 ??F)-37.1 ??C (98.8 ??F)] Heart Rate Heart Rate: 62 Heart Rate: -- Blood Pressure BP: 142/69 BP: (142-146)/(69-75) Respiratory Rate Resp: 24 Resp: [18-24] SpO2 SpO2: 94 % SpO2: [89 %-95 %] RA I/O last 3 completed shifts: In: 6493 [P.O.:1590; I.V.:4574; IV Piggyback:329] Out: 9250 [Urine:9250] Gen: well appearing, up to chair CV: RRR Pulm: CTAB Abd: soft, improved TTP over left kidney, neph tube to gravity, urine clear Ext: wwp Recent Labs 04/28/16 0606 04/27/16 0536 04/26/16 1641 04/26/16 0621 04/25/16 1604 WBC 6.8 6.9 -- 6.9 7.5 HGB 15.0 14.7 -- 15.5 16.5 PLATELET 162 146 -- 177 218 NA 142 136 138 136 138 K 3.5 3.3* 3.6 3.3* 3.8 CL 104 100 97* 98 96* CO2 25 22 26 23 25 BUN 10 13 15 13 14 CREATININE 1.10 1.38 1.51* 1.30 1.53* MAGNESIUM 0.67* 0.56* -- 0.45* 0.54* PHOS 2.5 1.7* -- 2.1* 2.4* GLUCOSE -- -- -- -- 139 Urine Culture -- (A) ? 50,000-99,000 cfu/ml Coagulase negative Staphylococcus species Susceptibility testing not routinely performed for Coagulase Negative Staphylococcus species and other Gram Positive organisms from urine. 10,000-49,000 cfu/ml mixed mucosal gareth Blood Culture -- (A) ? Coagulase negative Staphylococcus species detected by PCR Interpretation of the importance of skin gareth such as Coagulase Negative Staph, Viridans Strep, Corynebacteria and other Gram Positive organisms from a single Blood Culture set requires clinical correlation. ? Gram Stain Anaerobic -- (A) ? Growth detected in anaerobic bottle. Gram Positive Cocci in clusters seen Results called to and read back by DR. PACK. 04/26 Blood cultures NGTD, UA negative Assessment: 65 yo male with PMH significant for donor kidney transplant 09/2014 complicatedby ureteral stricture requiring multiple dilations and percutaneous nephrostomy tube placement who presents with complaints of fevers. ?? Bacteremic from urosepsis again. ID onboard, continue vancomycin, follow up repeat cultures. Plan: Continue vancomycin, plan for OPAT, R arm PICC when ID agrees Prograf level today Dc daily blood cultures Urology consult for possible nephrostomy exchange HLIV Regular diet Aggressively replete lytes. Daily labs Neph tube to gravity at all times Immunosuppression: Prograf 1,1 Cellcept 250 BID Marcio Haynes MD Transplant Surgery 5064 Associated attestation - Que Amaro MD - 04/28/2016 1:50 PM EDT I have seen the patient and reviewed the resident's above history and I agree with the details as written. The assessment and plan were formulated in discussion with me and I agree with them as documented. Mr. Akins has not had a fever since Thursday night. He looks and feels much better today. He wastransitioned off of Zosyn and remains on IV vancomycin. Repeat blood cultures from 04/26 were negative x 2 so we are going to proceed with PICC line placement today if ID feels that he will require IV abx. Repeat UA WBC ct yesterday was down to 4 and a culture was not sent. I am sending a repeat urine culture today to confirm that the urine has cleared as well. He seems to be responding to therapy. Appreciate ID and Urology input. Will plan to send BK PCR testing from urine and blood. Will arrange for IR to exchange current NU tube to indwelling ureteral stent + nephrostomy tube in preparation for his procedure. Excellent graft function with creatinine level that is down to 1.1 today. He remains diverted with NU tube to gravity. Reviewed and adjusted his immunosuppression as follows: Prograf 1/, trough level today Cellcept 250 mg po bid Await BK testing to determine whether IS adjustments are required. Will restart Plavix following the IR procedure. * Torie Edmonds MD - 04/27/2016 8:10 AM EDT ID: 65 yo male with PMH significant for donor kidney transplant 09/2014 complicated by ureteral stricture requiring multiple dilations and percutaneous nephrostomy tube placement who presentswith complaints of fevers likely secondary to urosepsis 24 hr/S: Continued to be febrile Blood cultures and urine culture positive for coag negative staff States he feels improved but still weak. O: Last value Range last 24hrs Temperature Temp: 36.6 ??C (97.9 ??F) Temp: [36.5 ??C (97.7 ??F)-39.2 ??C (102.6 ??F)] Heart Rate Heart Rate: 62 Heart Rate: [62-80] Blood Pressure BP: 143/74 BP: (135-156)/(70-74) Respiratory Rate Resp: 20 Resp: [20-32] SpO2 SpO2: 96 % SpO2: [92 %-97 %] RA I/O last 3 completed shifts: In: 7999 [P.O.:1710; I.V.:6139; IV Piggyback:150] Out: 7550 [Urine:7550] Gen: appears ill but improved CV: RRR Pulm: CTAB Abd: soft, mild TTP over left kidney, neph tube to gravity, urine clear Ext: wwp Recent Labs 04/27/16 0536 04/26/16 1641 04/26/16 0621 04/25/16 1604 WBC 6.9 -- 6.9 7.5 HGB 14.7 -- 15.5 16.5 PLATELET 146 -- 177 218 NA 136 138 136 138 K 3.3* 3.6 3.3* 3.8 CL 100 97* 98 96* CO2 22 26 23 25 BUN 13 15 13 14 CREATININE 1.38 1.51* 1.30 1.53* MAGNESIUM 0.56* -- 0.45* 0.54* PHOS 1.7* -- 2.1* 2.4* GLUCOSE -- -- -- 139 Urine Culture -- (A) ? 50,000-99,000 cfu/ml Coagulase negative Staphylococcus species Susceptibility testing not routinely performed for Coagulase Negative Staphylococcus species and other Gram Positive organisms from urine. 10,000-49,000 cfu/ml mixed mucosal gareth Blood Culture -- (A) ? Coagulase negative Staphylococcus species detected by PCR Interpretation of the importance of skin gareth such as Coagulase Negative Staph, Viridans Strep, Corynebacteria and other Gram Positive organisms from a single Blood Culture set requires clinical correlation. ? Gram Stain Anaerobic -- (A) ? Growth detected in anaerobic bottle. Gram Positive Cocci in clusters seen Results called to and read back by DR. PACK. Assessment: 65 yo male with PMH significant for donor kidney transplant 09/2014 complicatedby ureteral stricture requiring multiple dilations and percutaneous nephrostomy tube placement who presents with complaints of fevers. ?? Bacteremic from urosepsis again. Will consult ID to discuss ABX treatment Continue Vanc/ Zosyn for now Plan: Continue to treat with broad spectrum ABXs until cultures finalize. ID consult pending Daily blood cultures until cleared Urology consult pending to discuss operative options and timing NS @100 OK for diet as tolerated Aggressively replete lytes. Daily labs Neph tube to gravity at all times Immunosuppression: Prograf 1,1 Cellcept 250 BID TORIE EDMONDS MD Associated attestation - Que Amaro MD - 04/27/2016 12:21 PM EDT I have seen the patient and reviewed the resident's above history and I agree with the details as written. The assessment and plan were formulated in discussion with me and I agree with them as documented. Mr. Akins is feeling better today. He continued to spike high fevers through last evening and defervesced with no fevers since. Denies rigors today. His urine and blood cultures are growing out coagulase negative Staph and he remains on vancomycin + Zosyn coverage. Await sensitivities and will plan to continue the Zosyn for another 24 hours as we await final culture results. Will likely be able to stop the Zosyn tomorrow and transition to GPC coverage only pending sensitivities. We have requested ID team involvement today and I communicated the findings with Santosh Arredondo. We will leave his NU tube open to gravity and will postpone the planned urologic reconstruction procedure that was scheduled later this week. He will require time to reduce the inflammation in his graft as this represents graft pyelonephritis with urosepsis. Will coordinate a new procedure date with Dr. Arredondo and the ID team this week. I suggest that we consider 14 days of antibiotic therapy before the operation, a procedure in the third week while still on antibiotics, and then perhaps a week of coverage after the operation since we will need to leave an internal stent in place at the time of the procedure. Await formal recommendations by their teams and further discussion this week. Graft function is stable with creatinine level that is down to 1.3. I reviewed and adjusted his immunosuppression as follows: Prograf 07/06, trough level tomorrow Cellcept 250 mg po bid Stable, floor status. Check repeat blood culture today and tomorrow. Continue with daily blood culture checks until we confirm that he has cleared. Will also send a repeat UA and urine culture today to confirm that we have cleared organism from urine. * Torie Edmonds MD - 04/26/2016 11:02 AM EDT ID: 65 yo male with PMH significant for donor kidney transplant 09/2014 complicated by ureteral stricture requiring multiple dilations and percutaneous nephrostomy tube placement who presentswith complaints of fevers likely secondary to urosepsis 24 hr/S: Admitted overnight Persistently febrile Still feels like he has the chills. exhausted O: Last value Range last 24hrs Temperature Temp: 36.5 ??C (97.7 ??F) Temp: [36.5 ??C (97.7 ??F)-39.4 ??C (102.9 ??F)] Heart Rate Heart Rate: 61 Heart Rate: [61-79] Blood Pressure BP: 133/68 BP: (133-156)/(68-79) Respiratory Rate Resp: 24 Resp: [18-24] SpO2 SpO2: 94 % SpO2: [90 %-97 %] I/O last 3 completed shifts: In: 2807 [I.V.:2757; IV Piggyback:50] Out: 2525 [Urine:2525] Gen: appears ill CV: RRR Pulm: CTAB Abd: soft, mild TTP over left kidney, neph tube to gravity, urine clear Ext: wwp Recent Labs 04/26/16 0621 04/25/16 1604 WBC 6.9 7.5 HGB 15.5 16.5 PLATELET 177 218 NA 136 138 K 3.3* 3.8 CL 98 96* CO2 23 25 BUN 13 14 CREATININE 1.30 1.53* MAGNESIUM 0.45* 0.54* PHOS 2.1* 2.4* GLUCOSE -- 139 Assessment: 65 yo male with PMH significant for donor kidney transplant 09/2014 complicatedby ureteral stricture requiring multiple dilations and percutaneous nephrostomy tube placement who presents with complaints of fevers. ?? Likely has urosepsis again. Plan: Continue to treat with broad spectrum ABXs until cultures finalize Urology consult pending NS @150 OK for diet Aggressively replete lytes. Follow up BMP this afternoon. Neph tube to gravity at all times TORIE EDMONDS MD Associated attestation - Que Amaro MD - 04/27/2016 10:33 AM EDT I have seen the patient and reviewed the resident's above history and I agree with the details as written. The assessment and plan were formulated in discussion with me and I agree with them as documented. documented in this encounter H&P Notes * Tal Eagle MD - 04/25/2016 4:48 PM EDT [facility] Department of Transplant Surgery History and Physical History of Present Illness: Mr. Akins is a 65 yo male with PMH significant for donor kidney transplant 09/2014 complicated by ureteral stricture requiring multiple dilations and percutaneous nephrostomy tube placement who presents with complaints of fevers. He was feeling well but developed a fever this morning to 100.8. He took two tylenol without improvement. On the drive down to clinic he began to develop chills and rigors. + urinary frequency but able to void. States his urine is dark in color. No nausea or vomiting. No chest pain or SOB. Feels tired. 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 He completed his course of antibiotics in March and has been feeling well. He underwent repeat interrogation of his ureter and stent in IR on 9/20- this revealed long segment stricture, not amendable to further percutaneous intervention. He was recently seen in clinic for evaluation and surgical planning for reconstruction with assistance of Urology. Past Medical History: Past Medical History Diagnosis [...] EXTREMITY performed by Que Amaro MD at [facility] OR ??? Pro transplantation of kidney N/A 09/16/2015 @KIDNEY TRANSPLANT, WITHOUT RECIPIENT NEPHRECTOMY performed by Franko Larkin MD at [facility] OR ??? Pro transplant, prep cadaver renal graft N/A 09/16/2015 @PREPARATION CADAVERIC RENAL ALLOGRAFT performed by Franko Larkin MD at [facility] OR ??? N/A 09/16/2015 ORGAN ACQUISITION RENAL, CADAVERIC performed by Franko Larkin MD at [facility] OR Home Medications: No current facility-administered medications on file prior to encounter. Current Outpatient Prescriptions on File Prior to Encounter Medication Sig Dispense Refill ??? levothyroxine (SYNTHROID) 100 mcg Tablet Take 100 mcg by mouth daily. ??? acetaminophen (TYLENOL) 500 mg Tablet Take 1,000 mg by mouth every 6 hours as needed for Pain. ??? sulfamethoxazole-trimethoprim (BACTRIM;SEPTRA) 400-80 mg Tablet Take 1 tablet by mouth daily for 364 days. 90 tablet 3 ??? valGANciclovir (VALCYTE) 450 mg Tablet Take [...] taking: Reported on 04/23/2016) 30 tablet 0 Allergies: No Known Allergies Family History: Non contributory for sepsis Social History: Social History Social History ??? [...] ??? Not on file Social History Narrative Review of Systems: As stated above, otherwise 10 systems negative Physical Exam: T= 100.8 HR 50-70 BP 156/79 RR 24 95% on RA Gen: Appears ill, fatigued NEURO: AAO x3, HEENT: PERRL, non icteric sclera CV: RRR +s1/s2 Pulm: CTAB GI: soft, NT, ND, left transplant incision c/d/i. Well healing. No tenderness over transplant. Nephrostomy tube VASC: Palpable radial pulses DERM: skin dry, warm MSK: normal gait, normal muscle tone Data independently reviewed: Recent Labs 04/25/16 1604 04/23/16 1029 WBC 7.5 5.9 HGB 16.5 16.2 PLATELET 218 231 NA -- 138 K -- 3.9 CL -- 101 CO2 -- 22 BUN -- 21* CREATININE -- 1.44 MAGNESIUM -- 0.64* PHOS -- 2.7 GLUCOSE -- 215* LFT's No results found for: ALKPHOS, AST, ALBUMIN, BILIDIR, BILITOT, ALT, PROT Coags No results found for: INR, PT, PTT Recent Results (from the past 24 hour(s)) Hemogram Result Value Ref Range WBC 7.5 4.0 - 9.5 x10(3)/mcL RBC 5.10 4.58 - 5.54 x10(6)/mcL Hemoglobin 16.5 13.7 - 16.5 gm/dL Hematocrit 47.9 40.5 - 48.5 % MCV 93.9 (H) 82.9 - 93.1 fL MCH 32.4 (H) 27.5 - 32.1 pg MCHC 34.4 32.0 - 35.7 gm/dL Platelets 218 145 - 357 x10(3)/mcL RDWSD 44.3 36.0 - 45.0 fL RDWCV 12.9 11.4 - 13.8 % MPV 8.9 7.6 - 12.9 fL nRBC % Auto 0.0 % nRBC Abs Auto 0.000 0.000 - 0.000 x10(3)/mcL Differential, Automated Result Value Ref Range Neutrophils % 83.7 % Neutr Abs (ANC) 6.31 (H) 1.70 - 6.10 x10(3)/mcL Lymphocytes % 8.8 % Lymphocytes Abs 0.7 (L) 0.9 - 3.2 x10(3)/mcL Monocytes % 5.3 % Monocyte Abs 0.4 0.3 - 0.9 x10(3)/mcL Eosinophils % 0.8 % Eosinophils Abs 0.1 0.0 - 0.4 x10(3)/mcL Basophils % 0.7 % Basophils Abs 0.0 0.0 - 0.1 x10(3)/mcL Immature Gran % 0.70 % Ayesha Gran Abs 0.05 (H) 0.00 - 0.04 x10(3)/mcL Urinalysis with reflex Culture Result Value Ref Range Glucose UA Negative Negative mg/dL Protein UA 30 (A) Negative mg/dL Bilirubin UA Negative Negative mg/dL Urobilinogen UA Normal Normal mg/dL pH UA 6.0 5.0 - 8.0 Blood UA Moderate (A) Negative mg/dL Ketones UA Negative Negative mg/dL Nitrite UA Negative Negative Leukocytes UA Small (A) Negative mcL Appearance UA Clear Clear Spec [place] UA 1.024 1.002 - 1.030 Color UA Yellow Yellow RBC UA 44 (H) 0 - 3 /HPF WBC UA 16 (H) 0 - 3 /HPF Culture Reflexed Yes Urine culture pending Blood culture pending Impression: 65 yo male with transplanted ureteral stricture and indwelling nephrostomy tube and stent who is again presenting with signs and symptoms concerning for urosepsis (decr UOP, cloudy urine,constitutional signs and symptoms). Will admit to the hospital, start on broad spectrum antibiotics(Vanc- Zosyn) and place nephrostomy tube to gravity. Urology aware of admission Recommendation: Vanc/ Zosyn Neprhostomy tube to gravity NPO IVF @150ml/hr Follow up labs Immunosuppression: Cellcept 250'' Prograf 1,1- check level tomorrow TORIE EDMONDS MD I reviewed all of the above findings and assessment of Dr. Edmonds, edited the above note to reflect my assessment and examination and formulated the recommendations which accurately reflect mine. documented in this encounter Procedure Notes * Santosh Ellsworth MD - 04/30/2016 4:08 PM EDT IR PROCEDURE NOTE ? Procedure: Exchange of the left nephroureteral tube for a JJ ureteral stent and an external nephrostomy tube. ? Indication for Procedure: 65 y.o. male with history of transplant kidney c/b ureteral stricture andhydronephrosis. Patient is now s/p 3 of 3 planned ureteroplasty. Transplant surgery service requested conversion of the transplant NU for a PCN and JJ stent. ? Procedure events and findings: Informed consent was obtained after the risks, benefits and complications of the procedure were all explained. Due to the painful nature of the procedure, patient was sedated by the IR nurse with split doses of fentanyl and versed. ? Maximum sterile barrier technique used throughout the procedure. The patient was prepped and drapedin supine position. Branding Machine Tender image obtained. Contrast injection confirmed catheter location. ? The catheter was cut and an 0.035 wire was advanced into the bladder and the catheter was removed.An 8 Fr sheath was placed and a second wire was placed through the sheath into the renal collectingsystem. A 4.7 Fr 12 cm JJ ureteral stent was placed with the distal tip in the bladder and the proximal tip in the renal pelvis. The stent pulled back when the positioning string was retracted and the stent then removed. The same process was then used to place a 4.7 Fr 12 cm JJ ureteral stent with the distal pigtail in the bladder and the proximal in the renal pelvis. A 10.2 Fr percutaneous nephrostomy tube was placed over the safety wire and the pigtail in the superior renal pelvis. Wires were removed. Contrast study performed showing correct position and passageof contrast to the bladder. Catheter secured to skin and left to bag drainage. ? Medications: Fentanyl 100 mcg IV, Versed 1.5 mg IV, 1% Lidocaine <10ccs subcutaneous. Contrast: 15 cc's Omnipaque 350 Fluoro time: 2.3 min Est Blood Loss: <5cc. ? Complications: No immediate ? Impression: ?? 1. Removal of existing left NU stent. 2. Placement of a 4.7 Fr, 10 cm JJ ureteral stent. 3. Placement of a 10.2 Fr nephrostomy, open to bag drainage. Fellow: Jaylin Moreira DO Attending: Dr. Ellsworth, I was present throughout this procedure. * Carmelina Roca RN - 04/29/2016 10:56 AM EDTAssociated Order(s): PLACE PICC LINE: CONTACT VASCULAR ACCESS PICC/Midline Insertion Procedure Note Indications: Anti-infective This insertion was not to replace a malfunctioning catheter. This insertion was not due to a suspected line-associated infection. Location of Procedure: X-Ray Room 11 Risks and Benefits: The risks and benefits of this procedure were reviewed and informed consent was obtained obtained. Time Out: Prior to the start of the procedure, the patient's identity, intended procedure, site/side, correctpatient positioning and presence of the site princess was confirmed as applicable. The medical history and chart were reviewed to rule out potential contraindications to the planned procedure. Hand Hygiene: The daytime babysitter did not perform hand hygiene prior to line insertion. Catheter type: PICC Lot number: [id number] Procedure Technique: Skin was prepped with chlorhexidine. Skin preparation agent was completely dry at the time of first skin puncture. The following barrier precaution methods were used:large sterile drape, maske/eye shield, large sterile gown, sterile gloves and cap. 2 ml of 1% Lidocaine was used for skin wheal. Ultrasound was used for guidance. Radiographic contrast agent was not injected for vein identification. Procedure Details: Order received for catheter placement. A 4 Fr. single lumen Bard Power catheter was placed into theright basilic vein over a 0.018 inch guidewire using modified seldinger technique and fluoroscopy. Arm circumference was 36 cm at 2 cm above the insertion site. Final catheter length (with trimming): 42 cm Internal: 42 cm External: 0 cm Tip in SVC per Dr. DILLON The line was not placed over a guidewire. Post Procedure: Diagnosis: COMPLICATIONS S/P RENAL TX Blood return noted on aspiration of line after placement confirmed. 10 mls of normal saline infusedfree flowing to gravity via PICC after insertion. Sterile dressing applied: CHG Impregnated Tegaderm. Findings: The patient did tolerate the procedure well. No Complications. Procedure Comments: NONE CARMELINA ROCA RN 04/29/2016 documented in this encounter Miscellaneous Notes * Plan of Care - Brandee Akins RN - 04/30/2016 2:55 PM EDT Problem: General Plan of Care Goal: Plan of Care Review Outcome: Ongoing (Interventions Implemented as Appropriate) 04/27/16 0152 04/30/16 0900 Plan of Care Review Progress improving -- Coping/Psychosocial Plan Of Care Reviewed With -- patient OUTCOME EVALUATION NOTE: OUTCOME SUMMARY: Tania had an eventful day. VS stable. R arm discomfort controlled adequately with scheduled tylenol. Nephrostomy tube exchanged. Putting out moderate amounts of clear yellow urine. Cardiac enzymes drawn and x1 dapto administered per MD order. Has been ambulating independently. Will continue to monitor. PLAN MOVING FORWARD: Discharge home INDIVIDUALIZED FALL PREVENTION INTERVENTIONS: Patient-specific fall risk factors per assessment: [current deficits]: Drains/IVF Assistance [level of assistance required for transfers and ambulation]: independent Supervision [direct monitoring required during toileting and ADLs]: independent Surveillance [continuous indirect monitoring]: Skyla purposeful rounding, call robles within reach Patient-specific fall prevention interventions for sensory deficits provided, if applicable: Yes- lighting adjusted per task CPG GOAL OUTCOME EVALUATION: Goal: Individualization and Mutuality Outcome: Ongoing (Interventions Implemented as Appropriate) 04/25/16181804/26/16 1437 Individualization Patient Specific Preferences -- call me tania Mutuality/Individual Preferences What Anxieties, Fears or Concerns Do You Have About Your Health or Care? yes (worried about upcoming surgery being postponed) -- What Questions Do You Have About Your Health or Care? none -- What Information Would Help Us Give You More Personalized Care? none -- Goal: Fall Prevention-Safe Patient Handling Outcome: Ongoing (Interventions Implemented as Appropriate) 04/26/16 19404/30/16 0900 Musculoskeletal Interventions (RETIRED) Activity/Level of Assistance up ad chiquita;with 2-person assist -- Muscle Strengthening activity/mobility promoted;personal routines for BADL/IADL promoted;up in chair encouraged for meals and activities -- Daily Care Interventions Self-Care Promotion -- independence encouraged Stephens Fall Risk History of Falling -- 0 Secondary Diagnosis -- 15 Ambulatory Aids -- 0 Intravenous Therapy/Heparin/Saline Lock -- 20 Gait/Transferring -- 0 Mental Status -- 0 Score -- 35 Activity and Safety Assistive Device -- None OTHER Stephens Fall Risk -- Med Restraint Interventions Safety Promotion/Fall Prevention -- nonskid shoes/slippers when out of bed Positioning Body Position -- independent Goal: Infection Control Outcome: Ongoing (Interventions Implemented as Appropriate) 04/27/16 1311 04/30/16 0900 Safety Interventions Infection Prevention -- rest/sleep promoted Safety Interventions Isolation Precautions standard precautions maintained -- Coping Strategies Supportive Measures -- relaxation techniques promoted Goal: Discharge Needs Assessment Outcome: Ongoing (Interventions Implemented as Appropriate) 04/27/16 1311 04/28/16 1308 04/29/16 1442 Discharge Needs Assessment Concerns To Be Addressed other (see comments) -- -- Concerns Comments Per ID consult. will likely need central line/ VNA/ home IV antibiotics -- -- Readmission Within The Last 30 Days no previous admission in last 30 days -- -- Provider Choice List(s) Given no -- -- Equipment Needed After Discharge medication pump -- -- Discharge Disposition -- home healthcare service -- Discharge Planning Comments -- -- CRC involved. [facility] to follow with home antibiotic Activity/Self Care Review of Systems Equipment Currently Used at Home none -- -- Current Health Outpatient/Agency/Support Group Needs homecare agency (specify level of care) -- -- Anticipated Changes Related to Illness none -- -- Living Environment Transportation Available family or friend will provide -- -- Problem: Health Knowledge, Opportunity for Enhanced (Adult, NICU, , Obstetrics, Pediatric) Goal: Knowledgeable about Health Subject/Topic Patient will demonstrate the desired outcomes. 04/30/16 0208 Health Knowledge, Opportunity to Enhance (Adult,NICU,,Obstetrics,Pediatric) Knowledgeable about Health Subject/Topic making progress toward outcome * Plan of Care - Ethel Flores RN - 04/30/2016 2:15 AM EDT Problem: General Plan of Care Goal: Plan of Care Review 04/27/16 0152 04/29/16 1930 Plan of Care Review Progress improving -- Coping/Psychosocial Plan Of Care Reviewed With -- patient OUTCOME EVALUATION NOTE: OUTCOME SUMMARY: Tania had a good night. VSS. Sleeping between care. Disruptions minimized. Refused heparin injection.NPO initiated at 0000 in setting of procedure. Denies pain. PICC line intact. Nephrostomy c/d/i, with adequate UOP, dressing reinforced. +BS, +flatus, -BM, - nausea. PLAN MOVING FORWARD: IV antibiotics, MIVF, NPO for procedure, Nephrostomy exchange procedure, ambulate, I&O, monitorlytes. INDIVIDUALIZED FALL PREVENTION INTERVENTIONS: Patient-specific fall risk factors per assessment: [current deficits]: Tethered lines/drains Assistance [level of assistance required for transfers and ambulation]: Independent. Supervision [direct monitoring required during toileting and ADLs]: Eyes on Surveillance [continuous indirect monitoring]: Masimo, call robles in reach, hourly rounding. Patient-specific fall prevention interventions for sensory deficits provided, if applicable: [X] Yes glasses at bedside, nonskid socks on when OOB. CPG GOAL OUTCOME EVALUATION: Ongoing. Goal: Individualization and Mutuality 04/25/16 18104/26/16 1437 Individualization Patient Specific Preferences -- call me tania Mutuality/Individual Preferences What Anxieties, Fears or Concerns Do You Have About Your Health or Care? yes (worried about upcoming surgery being postponed) -- What Questions Do You Have About Your Health or Care? none -- What Information Would Help Us Give You More Personalized Care? none -- Goal: Fall Prevention-Safe Patient Handling 04/26/16194304/29/16 1000 04/29/161929 Musculoskeletal Interventions (RETIRED) Activity/Level of Assistance up ad chiquita;with 2-person assist -- -- Muscle Strengthening activity/mobility promoted;personal routines for BADL/IADL promoted;up in chair encouraged for meals and activities -- -- Daily Care Interventions Self-Care Promotion -- -- independence encouraged Stephens Fall Risk History of Falling -- -- 0 Secondary Diagnosis -- -- 15 Ambulatory Aids -- -- 0 Intravenous Therapy/Heparin/Saline Lock -- -- 20 Gait/Transferring -- -- 0 Mental Status -- -- 0 Score -- -- 35 Activity and Safety Assistive Device -- None -- OTHER Stephens Fall Risk -- -- Med Restraint Interventions Safety Promotion/Fall Prevention -- -- nonskid shoes/slippers when out of bed;activity supervised;fall prevention program maintained;safety round/check completed Positioning Body Position -- -- independent Goal: Infection Control 04/27/16 13104/29/16 193 Safety Interventions Infection Prevention -- rest/sleep promoted;single patient room provided Safety Interventions Isolation Precautions standard precautions maintained -- Coping Strategies Supportive Measures -- goal setting facilitated;active listening utilized;decision-making supported;self-responsibility promoted;self-reflection promoted;self-care encouraged;positive reinforcement provided;problem solving facilitated;verbalization of feelings encouraged Goal: Discharge Needs Assessment 04/27/16 1311 04/28/16 1308 04/29/16 1442 Discharge Needs Assessment Concerns To Be Addressed other (see comments) -- -- Concerns Comments Per ID consult. will likely need central line/ VNA/ home IV antibiotics -- -- Readmission Within The Last 30 Days no previous admission in last 30 days -- -- Provider Choice List(s) Given no -- -- Equipment Needed After Discharge medication pump -- -- Discharge Disposition -- home healthcare service -- Discharge Planning Comments -- -- [facility] involved. [facility] with home antibiotic Activity/Self Care Review of Systems Equipment Currently Used at Home none -- -- Current Health Outpatient/Agency/Support Group Needs homecare agency (specify level of care) -- -- Anticipated Changes Related to Illness none -- -- Living Environment Transportation Available family or friend will provide -- -- Problem: Health Knowledge, Opportunity for Enhanced (Adult, NICU, , Obstetrics, Pediatric) Goal: Knowledgeable about Health Subject/Topic Patient will demonstrate the desired outcomes. 04/30/16207 Health Knowledge, Opportunity to Enhance (Adult,NICU,,Obstetrics,Pediatric) Knowledgeable about Health Subject/Topic making progress toward outcome Problem: Urinary Tract Infection (Adult) Goal: Signs and Symptoms of Listed Potential Problems Will be Absent, Minimized or Managed (UrinaryTract Infection) Signs and symptoms of listed potential problems will be absent, minimized or managed by discharge/transition of care (reference Urinary Tract Infection (Adult) CPG). 04/30/16207 Urinary Tract Infection Problems Assessed (Urinary Tract Infection) all Problems Present (Urinary Tract Infection) fluid and electrolyte imbalance * Plan of Care - Ryan Fuchs RN - 04/29/2016 2:47 PM EDT Problem: General Plan of Care Goal: Plan of Care Review OUTCOME EVALUATION NOTE: OUTCOME SUMMARY: Went for PICC procedure today. Has PICC at his Right AC. ON IV Vanco. Trough level due at 1800 PM per pharmacy. PO intake qs. Denies pain. VSS PLAN MOVING FORWARD: Discharge planning to follow. INDIVIDUALIZED FALL PREVENTION INTERVENTIONS: Patient-specific fall risk factors per assessment: [current deficits]: None Assistance [level of assistance required for transfers and ambulation]: SBA Supervision [direct monitoring required during toileting and ADLs]: one assist with am care/shower Surveillance [continuous indirect monitoring]: Skyla Hui Patient-specific fall prevention interventions for sensory deficits provided, if applicable: [X] No CPG GOAL OUTCOME EVALUATION: Goal: Individualization and Mutuality 04/25/161818 Mutuality/Individual Preferences What Questions Do You Have About Your Health or Care? none Goal: Fall Prevention-Safe Patient Handling 04/29/16 0830 Restraint Interventions Safety Promotion/Fall Prevention nonskid shoes/slippers when out of bed;safety round/check completed Goal: Infection Control 04/27/16 1311 Safety Interventions Isolation Precautions standard precautions maintained Goal: Discharge Needs Assessment 04/29/16 1442 Discharge Needs Assessment Discharge Planning Comments CRC involved. [facility] to follow with home antibiotic * Plan of Care - Polina Delgado RN - 04/29/2016 3:21 AM EDT Problem: General Plan of Care Goal: Plan of Care Review Outcome: Ongoing (Interventions Implemented as Appropriate) 04/27/16 0152 04/28/161999 Plan of Care Review Progress improving -- Coping/Psychosocial Plan Of Care Reviewed With -- patient OUTCOME EVALUATION NOTE: OUTCOME SUMMARY: Tania had a good night. No complaints of pain. Urostomy functioning properly. Good PO intake. Tolerating diet well. Slept well. PLAN MOVING FORWARD: PICC placement in AM for abx therapy after discharge. OR Thursday INDIVIDUALIZED FALL PREVENTION INTERVENTIONS: Patient-specific fall risk factors per assessment: [current deficits]: Tethering devices, hospitalization, IV access Assistance [level of assistance required for transfers and ambulation]: None Supervision [direct monitoring required during toileting and ADLs]: None Surveillance [continuous indirect monitoring]: Александрcarmina Patient-specific fall prevention interventions for sensory deficits provided, if applicable: [X] N/A CPG GOAL OUTCOME EVALUATION: Goal: Individualization and Mutuality Outcome: Ongoing (Interventions Implemented as Appropriate) 04/25/16181804/26/16 1437 Individualization Patient Specific Preferences -- call me tania Mutuality/Individual Preferences What Anxieties, Fears or Concerns Do You Have About Your Health or Care? yes (worried about upcoming surgery being postponed) -- What Questions Do You Have About Your Health or Care? none -- What Information Would Help Us Give You More Personalized Care? none -- Goal: Fall Prevention-Safe Patient Handling Outcome: Ongoing (Interventions Implemented as Appropriate) 04/26/16 19404/28/161999 Musculoskeletal Interventions (RETIRED) Activity/Level of Assistance up ad chiquita;with 2-person assist -- Muscle Strengthening activity/mobility promoted;personal routines for BADL/IADL promoted;up in chair encouraged for meals and activities -- Daily Care Interventions Self-Care Promotion -- independence encouraged Stephens Fall Risk History of Falling -- 0 Secondary Diagnosis -- 15 Ambulatory Aids -- 0 Intravenous Therapy/Heparin/Saline Lock -- 20 Gait/Transferring -- 0 Mental Status -- 0 Score -- 35 Activity and Safety Assistive Device None -- OTHER Stephens Fall Risk -- Med Restraint Interventions Safety Promotion/Fall Prevention -- nonskid shoes/slippers when out of bed;safety round/check completed;muscle strengthening facilitated Positioning Body Position -- supine Goal: Infection Control Outcome: Ongoing (Interventions Implemented as Appropriate) 04/27/16 1311 04/28/161999 Safety Interventions Infection Prevention -- rest/sleep promoted;personal protective equipment utilized Safety Interventions Isolation Precautions standard precautions maintained -- Coping Strategies Supportive Measures -- active listening utilized;counseling provided;decision- making supported;goalsetting facilitated Goal: Discharge Needs Assessment Outcome: Ongoing (Interventions Implemented as Appropriate) 04/27/16 1311 04/28/16 1308 Discharge Needs Assessment Concerns To Be Addressed other (see comments) -- Concerns Comments Per ID consult. will likely need central line/ VNA/ home IV antibiotics -- Readmission Within The Last 30 Days no previous admission in last 30 days -- Provider Choice List(s) Given no -- Equipment Needed After Discharge medication pump -- Discharge Disposition -- home healthcare service Discharge Planning Comments home with IV antibiotics. will need central line placed prior to d/c -- Activity/Self Care Review of Systems Equipment Currently Used at Home none -- Current Health Outpatient/Agency/Support Group Needs homecare agency (specify level of care) -- Anticipated Changes Related to Illness none -- Living Environment Transportation Available family or friend will provide -- Problem: Health Knowledge, Opportunity for Enhanced (Adult, NICU, [place], Obstetrics, Pediatric) Goal: Knowledgeable about Health Subject/Topic Patient will demonstrate the desired outcomes. Outcome: Ongoing (Interventions Implemented as Appropriate) 04/28/16 1308 Health Knowledge, Opportunity to Enhance (Adult,NICU,,Obstetrics,Pediatric) Knowledgeable about Health Subject/Topic making progress toward outcome Problem: Urinary Tract Infection (Adult) Goal: Signs and Symptoms of Listed Potential Problems Will be Absent, Minimized or Managed (UrinaryTract Infection) Signs and symptoms of listed potential problems will be absent, minimized or managed by discharge/transition of care (reference Urinary Tract Infection (Adult) CPG). Outcome: Ongoing (Interventions Implemented as Appropriate) 04/28/161999 Urinary Tract Infection Problems Assessed (Urinary Tract Infection) all Problems Present (Urinary Tract Infection) none * Plan of Care - Ethel Flores RN - 04/28/2016 1:32 PM EDT Problem: General Plan of Care Goal: Plan of Care Review 04/27/16 0152 04/28/16 0720 Plan of Care Review Progress improving -- Coping/Psychosocial Plan Of Care Reviewed With -- patient OUTCOME EVALUATION NOTE: OUTCOME SUMMARY: Pt resting in bed, denies pain, afebrile. Ambulating frequently and independently in posey. Lungs clear, +dry non productive cough. Blood cultures and Prograf level this morning. Fluids d/c. IV mag. Nephrostomy with adequate clear yellow output. Site and dressing c/d/i. L AV fistula with +bruit / +th irll. Refused heparin. PLAN MOVING FORWARD: PICC today or tomorrow, NPO @ 0000, iv antibiotics, encourage fluids, anticipate d/c home with VNA. INDIVIDUALIZED FALL PREVENTION INTERVENTIONS: Patient-specific fall risk factors per assessment: [current deficits]: Tethered lines, drain/device. Assistance [level of assistance required for transfers and ambulation]: independent Supervision [direct monitoring required during toileting and ADLs]: Eyes on Surveillance [continuous indirect monitoring]: Masimo, call robles in reach, hourly rounding Patient-specific fall prevention interventions for sensory deficits provided, if applicable: [X] Yes non skid socks, glasses on, lighting adjusted. CPG GOAL OUTCOME EVALUATION: Ongoing Goal: Individualization and Mutuality 04/25/16 1819 04/26/16 1437 Individualization Patient Specific Preferences -- call me tania Mutuality/Individual Preferences What Anxieties, Fears or Concerns Do You Have About Your Health or Care? yes (worried about upcoming surgery being postponed) -- What Questions Do You Have About Your Health or Care? none -- What Information Would Help Us Give You More Personalized Care? none -- Goal: Fall Prevention-Safe Patient Handling 04/26/16194304/28/16 0720 Musculoskeletal Interventions (RETIRED) Activity/Level of Assistance up ad chiquita;with 2-person assist -- Muscle Strengthening activity/mobility promoted;personal routines for BADL/IADL promoted;up in chair encouraged for meals and activities -- Daily Care Interventions Self-Care Promotion -- independence encouraged Stephens Fall Risk History of Falling -- 0 Secondary Diagnosis -- 15 Ambulatory Aids -- 0 Intravenous Therapy/Heparin/Saline Lock -- 20 Gait/Transferring -- 0 Mental Status -- 0 Score -- 35 Activity and Safety Assistive Device None -- OTHER Stephens Fall Risk -- Med Restraint Interventions Safety Promotion/Fall Prevention -- activity supervised;fall prevention program maintained;nonskid shoes/slippers when out of bed Positioning Body Position -- other (see comments) (reclined in chair) Goal: Infection Control 04/27/16 13104/28/16 0720 Safety Interventions Infection Prevention -- personal protective equipment utilized;rest/sleep promoted;single patient room provided Safety Interventions Isolation Precautions standard precautions maintained -- Coping Strategies Supportive Measures -- active listening utilized;decision-making supported;goal setting facilitated;self-responsibility promoted;verbalization of feelings encouraged;relaxation techniques promoted;problem solving facilitated;positive reinforcement provided Goal: Discharge Needs Assessment 04/27/16 1311 04/28/16 1308 Discharge Needs Assessment Concerns To Be Addressed other (see comments) -- Concerns Comments Per ID consult. will likely need central line/ VNA/ home IV antibiotics -- Readmission Within The Last 30 Days no previous admission in last 30 days -- Provider Choice List(s) Given no -- Equipment Needed After Discharge medication pump -- Discharge Disposition -- home healthcare service Discharge Planning Comments home with IV antibiotics. will need central line placed prior to d/c -- Activity/Self Care Review of Systems Equipment Currently Used at Home none -- Current Health Outpatient/Agency/Support Group Needs homecare agency (specify level of care) -- Anticipated Changes Related to Illness none -- Living Environment Transportation Available family or friend will provide -- Problem: Health Knowledge, Opportunity for Enhanced (Adult, NICU, [place], Obstetrics, Pediatric) Goal: Knowledgeable about Health Subject/Topic Patient will demonstrate the desired outcomes. 04/28/16 1308 Health Knowledge, Opportunity to Enhance (Adult,NICU,,Obstetrics,Pediatric) Knowledgeable about Health Subject/Topic making progress toward outcome Problem: Urinary Tract Infection (Adult) Goal: Signs and Symptoms of Listed Potential Problems Will be Absent, Minimized or Managed (UrinaryTract Infection) Signs and symptoms of listed potential problems will be absent, minimized or managed by discharge/transition of care (reference Urinary Tract Infection (Adult) CPG). 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 Hepresented 04/25 to Transplant clinic with fever to 100.8, noted chills/rigors and urinary frequency. Has since grown Staph aureus in urine and blood cultures. We are now being consulted for assistance with management of his nephrostomy tube. Of note he was due for transplant ureteral reconstructionwith Urology and Transplant services, but this was postponed. He reports feeling well this AM on evaluation. Good UOP from PCN and has been voiding per urethra as well without symptoms. Past Medical/Surgical History: Past Medical History Diagnosis [...] ??? Bacteremia due to coagulase-negative Staphylococcus R78.81 Past Surgical History Procedure Laterality Date ??? Pro anastomosis, av, any site Left 05/09/2015 AV FISTULA CREATION, DIRECT HEMODIALYSIS, ANY SITE, EG ASHWINI FISTULA UPPER EXTREMITY performed by Que Amaro MD at [facility] MA[facility] OR ??? Pro transplantation of kidney N/A 09/16/2015 @KIDNEY TRANSPLANT, WITHOUT RECIPIENT NEPHRECTOMY performed by Franko Larkin MD at [facility] MA[facility] OR ??? Pro transplant, prep cadaver renal graft N/A 09/16/2015 @PREPARATION CADAVERIC RENAL ALLOGRAFT performed by Franko Larkin MD at [facility] MA[facility] OR ??? N/A 09/16/2015 ORGAN ACQUISITION RENAL, CADAVERIC performed by Franko Larkin MD at [facility] OR Social History: Social History Social [...] Review of Systems: Review of Systems Constitution: Negative for chills and fever. Cardiovascular: Negative for chest pain. Respiratory: Negative for shortness of breath. Gastrointestinal: Negative for abdominal pain, nausea and vomiting. Genitourinary: Positive for dysuria. Negative for bladder incontinence, flank pain and hematuria. Medications: No current facility-administered medications on file prior to encounter. Current Outpatient Prescriptions on File Prior to Encounter Medication Sig Dispense Refill ??? levothyroxine (SYNTHROID) 100 mcg Tablet Take 100 mcg by mouth daily. ??? acetaminophen (TYLENOL) 500 mg Tablet Take 1,000 mg by mouth every 6 hours as needed for Pain. ??? sulfamethoxazole-trimethoprim (BACTRIM;SEPTRA) 400-80 mg Tablet Take 1 tablet by mouth daily for 364 days. 90 tablet 3 ??? valGANciclovir (VALCYTE) 450 mg Tablet Take [...] taking: Reported on 04/23/2016) 30 tablet 0 Physical Exam: Temp: [36.4 ??C (97.5 ??F)-37.1 ??C (98.8 ??F)] Heart Rate: -- Resp: [18-24] BP: (142-146)/(69-75) SpO2: [89 %-95 %] Heart Rate from SPO2: [56 bpm-62 bpm] General: No acute distress. Card: RRR, no murmur Lungs: nonlabored breathing on RA Abd: Soft, ND, NT to palpation, LLQ PCN in place with clear, yellow urine : Normal Labs: Recent Labs 04/28/16 0606 04/27/16 0536 04/26/16 1641 04/26/16 0621 WBC 6.8 6.9 -- 6.9 HGB 15.0 14.7 -- 15.5 PLATELET 162 146 -- 177 NA 142 136 138 136 K 3.5 3.3* 3.6 3.3* CL 104 100 97* 98 CO2 25 22 26 23 BUN 10 13 15 13 CREATININE 1.10 1.38 1.51* 1.30 CALCIUM 9.1 8.3* 9.0 8.2* MAGNESIUM 0.67* 0.56* -- 0.45* Component Value Date/Time SPGRAVITYUA 1.008 04/27/2016 1115 PHUADIP 7.0 04/27/2016 1115 PROTEINUADIP Negative 04/27/2016 1115 GLUCOSEU Negative 04/27/2016 1115 KETONESUA Negative 04/27/2016 1115 UROBILIUADIP Normal 04/27/2016 1115 BLOODUADIP Moderate (A) 04/27/2016 1115 NITRATEUA Negative 04/27/2016 1115 LEUKOESTERUA Negative 04/27/2016 1115 WBCUA 4 (H) 04/27/2016 1115 BILIRUBINUA Negative 04/27/2016 1115 Microbiology: 04/25 BCx Blood Culture -- (A) ? Coagulase negative Staphylococcus species detected by PCR Susceptibility testing in progress ? Gram Stain Anaerobic -- (A) ? Growth detected in anaerobic bottle. Gram Positive Cocci in clusters seen 04/25 PCN UCx Urine Culture -- (A) ? 1,000-9,000 cfu/ml Coagulase Negative Staph, not S. saprophyticus Susceptibility testing not routinely performed for Coagulase Negative Staphylococcus species and other Gram Positive organisms from urine. ? Organism ? Coagulase Negative Staph, not S. saprophyticus (A) 04/26 BCx - no growth at 1 day Imaging: No new Assessment: Ethel Akins is a 65 y.o. 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 Now here with urosepsis due to Staph aureus. Improved clinically on Vancomycin. Recommendations: -f/u repeat UA -recommend exchange of transplant nephroureteral stent for antegrade double J stent and separate PCN in preparation for upcoming ureteral reconstruction -f/u UCx and ID recommendations on IV antibiotic course -working on coordinating ureteral reconstruction procedure with Drs. Arredondo and Sondra in next couple of weeks while on IV antibiotic course Patient and plan discussed with Dr. Arredondo and primary team YEIMI ELAM MD * Initial Assessments - Malina Phelan RN - 04/28/2016 8:57 AM EDT Community Resources: Office of Care Management Initial Assessment Malina Phelan RN reviewed record and discussed patient with Care Team. Source of Information: Chart review as patient Reason for Hospitalization: 65 yo male with PMH significant for donor kidney transplant 09/2014 complicated by ureteral stricture requiring multiple dilations and percutaneous nephrostomy tube placement who presents with complaints of fevers likely secondary to urosepsis Hospitalizations Within the Past 30 Days: None Anticipated Length Of Stay (If known): 2 days Current Decision-Making Capacity: Cognitively able to make decisions independently Advance Care Planning: None on file. Information offered. Current Coping/Education/Information Needs: Information of home abx therapy. Current Functional Ability: Independent Functional Status Prior to Admission: Independent Home Environment: Lives in [place], [place] with his Mara. Social & Family Supports/Community Resources: Patient has good support system with and family. Behavioral Health History: None on file Substance Use/Abuse: None on file Other Pertinent/Service Specific Information: None Health/Prescription Coverage: Primary Insurance: Medicare A&B Secondary Insurance: BC/BS Prescription Coverage: Yes [facility] in [place], [place] Other: None Primary Care Provider: Dr. Albania Denis [phone] Patient/Caregiver Goals of Treatment: To return home with IV abx Potential Needs for Transition of Care: Rehab/SNF: None at this time Home Health: No DME: No Dialysis: None Community Resources: None at this time. Transportation: Family member or friend Other: None Anticipated Barriers to Discharge/Special Considerations: None Plan: Discharge to home when medically ready with home IV abx therapy. A member of the Care Management team will continue to monitor progress, follow for continuity of care and assist with transition of care planning. Malina Phelan RN Pager: [phone] * Plan of Care - Polina Delgado RN - 04/28/2016 2:53 AM EDT Problem: General Plan of Care Goal: Plan of Care Review Outcome: Ongoing (Interventions Implemented as Appropriate) 04/27/16 0152 04/27/161999 Plan of Care Review Progress improving -- Coping/Psychosocial Plan Of Care Reviewed With -- patient OUTCOME EVALUATION NOTE: OUTCOME SUMMARY: Pt had a good night. No acute events. Voiding naturally and via nephrostomy; MD aware. Tolerating PO fluids and diet - adequate intake PLAN MOVING FORWARD: Potential PICC placement for mcc abx at home - return at later date for stent revision INDIVIDUALIZED FALL PREVENTION INTERVENTIONS: Patient-specific fall risk factors per assessment: [current deficits]: IV access, age related changes, generalized weakness Assistance [level of assistance required for transfers and ambulation]: Standby Supervision [direct monitoring required during toileting and ADLs]: Arms reach Surveillance [continuous indirect monitoring]: Skyla Patient-specific fall prevention interventions for sensory deficits provided, if applicable: [X] N/A CPG GOAL OUTCOME EVALUATION: Goal: Individualization and Mutuality Outcome: Ongoing (Interventions Implemented as Appropriate) 04/25/16 18104/26/16 1437 Individualization Patient Specific Preferences -- call me tania Mutuality/Individual Preferences What Anxieties, Fears or Concerns Do You Have About Your Health or Care? yes (worried about upcoming surgery being postponed) -- What Questions Do You Have About Your Health or Care? none -- What Information Would Help Us Give You More Personalized Care? none -- Goal: Fall Prevention-Safe Patient Handling Outcome: Ongoing (Interventions Implemented as Appropriate) 04/26/16 19404/27/161999 Musculoskeletal Interventions (RETIRED) Activity/Level of Assistance up ad chiquita;with 2-person assist -- Muscle Strengthening activity/mobility promoted;personal routines for BADL/IADL promoted;up in chair encouraged for meals and activities -- Daily Care Interventions Self-Care Promotion -- independence encouraged Stephens Fall Risk History of Falling -- 0 Secondary Diagnosis -- 15 Ambulatory Aids -- 0 Intravenous Therapy/Heparin/Saline Lock -- 20 Gait/Transferring -- 0 Mental Status -- 0 Score -- 35 Activity and Safety Assistive Device None -- OTHER Stephens Fall Risk -- Med Restraint Interventions Safety Promotion/Fall Prevention -- activity supervised;nonskid shoes/slippers when out of bed;safety round/check completed;fall prevention program maintained Positioning Body Position -- supine Goal: Infection Control Outcome: Ongoing (Interventions Implemented as Appropriate) 04/27/16 1311 04/27/161999 Safety Interventions Infection Prevention -- personal protective equipment utilized;rest/sleep promoted;single patient room provided Safety Interventions Isolation Precautions standard precautions maintained -- Coping Strategies Supportive Measures -- active listening utilized Goal: Discharge Needs Assessment Outcome: Ongoing (Interventions Implemented as Appropriate) 04/27/16 1311 04/28/16 0207 Discharge Needs Assessment Concerns To Be Addressed other (see comments) -- Concerns Comments Per ID consult. will likely need central line/ VNA/ home IV antibiotics -- Readmission Within The Last 30 Days no previous admission in last 30 days -- Provider Choice List(s) Given no -- Equipment Needed After Discharge medication pump -- Discharge Disposition -- home or self-care Discharge Planning Comments home with IV antibiotics. will need central line placed prior to d/c -- Activity/Self Care Review of Systems Equipment Currently Used at Home none -- Current Health Outpatient/Agency/Support Group Needs homecare agency (specify level of care) -- Anticipated Changes Related to Illness none -- Living Environment Transportation Available family or friend will provide -- Problem: Health Knowledge, Opportunity for Enhanced (Adult, NICU, [place], Obstetrics, Pediatric) Goal: Knowledgeable about Health Subject/Topic Patient will demonstrate the desired outcomes. Outcome: Ongoing (Interventions Implemented as Appropriate) 04/27/16 1311 Health Knowledge, Opportunity to Enhance (Adult,NICU,,Obstetrics,Pediatric) Knowledgeable about Health Subject/Topic making progress toward outcome Problem: Urinary Tract Infection (Adult) Goal: Signs and Symptoms of Listed Potential Problems Will be Absent, Minimized or Managed (UrinaryTract Infection) Signs and symptoms of listed potential problems will be absent, minimized or managed by discharge/transition of care (reference Urinary Tract Infection (Adult) CPG). Outcome: Ongoing (Interventions Implemented as Appropriate) 04/27/161999 Urinary Tract Infection Problems Assessed (Urinary Tract Infection) all Problems Present (Urinary Tract Infection) fluid and electrolyte imbalance * Plan of Care - Ethel Flores RN - 04/27/2016 1:45 PM EDT Problem: General Plan of Care Goal: Plan of Care Review 04/27/16 0152 04/27/16 0725 Plan of Care Review Progress improving -- Coping/Psychosocial Plan Of Care Reviewed With -- patient OUTCOME EVALUATION NOTE: OUTCOME SUMMARY: Pt restin in bed, fevers subsiding, VSS. IV mag repleated. Continued IV antibiotics. ID consult. Ptstating he feels a lot better than yesterday. OOB and showered. Urine & blood cultures obtained. Dry cough present. +BS, +BM, +flatus, - nausea, +appetite. Fistula +bruit, +thrill. Nephrostomy tube intact with clear urine. Voided 300 from bladder with no residual. Ambulated in posey, stand by assist. BKV urine specimen sent. PLAN MOVING FORWARD: Postpone stent revision till infection resolved, home with IV antibiotics, Place central line once infection clears, serial blood and urine cultures, prograf level tomorrow AM, Temp management, I&O, activity as tolerated. INDIVIDUALIZED FALL PREVENTION INTERVENTIONS: Patient-specific fall risk factors per assessment: [current deficits]: Tethered lines, polypharmacy, drain. Assistance [level of assistance required for transfers and ambulation]: SBA Supervision [direct monitoring required during toileting and ADLs]: Eyes on Surveillance [continuous indirect monitoring]: jamir Loredo in reach, hourly rounding. Patient-specific fall prevention interventions for sensory deficits provided, if applicable: [X] Yes glasses provided / nonskid socks. CPG GOAL OUTCOME EVALUATION: Ongoing. Goal: Individualization and Mutuality 04/25/16 1819 04/26/16 7486 Individualization Patient Specific Preferences -- call me tania Mutuality/Individual Preferences What Anxieties, Fears or Concerns Do You Have About Your Health or Care? yes (worried about upcoming surgery being postponed) -- What Questions Do You Have About Your Health or Care? none -- What Information Would Help Us Give You More Personalized Care? none -- Goal: Fall Prevention-Safe Patient Handling 04/26/16194304/27/16724 Musculoskeletal Interventions (RETIRED) Activity/Level of Assistance up ad chiquita;with 2-person assist -- Muscle Strengthening activity/mobility promoted;personal routines for BADL/IADL promoted;up in chair encouraged for meals and activities -- Daily Care Interventions Self-Care Promotion -- independence encouraged Stephens Fall Risk History of Falling -- 0 Secondary Diagnosis -- 15 Ambulatory Aids -- 0 Intravenous Therapy/Heparin/Saline Lock -- 20 Gait/Transferring -- 0 Mental Status -- 0 Score -- 35 Activity and Safety Assistive Device None -- OTHER Stephens Fall Risk -- Med Restraint Interventions Safety Promotion/Fall Prevention -- fall prevention program maintained;nonskid shoes/slippers when out of bed Positioning Body Position -- supine, head elevated Goal: Infection Control 04/27/1672404/27/16 131 Safety Interventions Infection Prevention -- rest/sleep promoted;single patient room provided Safety Interventions Isolation Precautions -- standard precautions maintained Coping Strategies Supportive Measures active listening utilized;goal setting facilitated;self-care encouraged;verbalization of feelings encouraged -- Goal: Discharge Needs Assessment 04/27/161310 Discharge Needs Assessment Concerns To Be Addressed other (see comments) Concerns Comments Per ID consult. will likely need central line/ VNA/ home IV antibiotics Readmission Within The Last 30 Days no previous admission in last 30 days Provider Choice List(s) Given no Equipment Needed After Discharge medication pump Discharge Planning Comments home with IV antibiotics. will need central line placed prior to d/c Activity/Self Care Review of Systems Equipment Currently Used at Home none Current Health Outpatient/Agency/Support Group Needs homecare agency (specify level of care) Anticipated Changes Related to Illness none Living Environment Transportation Available family or friend will provide Problem: Health Knowledge, Opportunity for Enhanced (Adult, NICU, [place], Obstetrics, Pediatric) Goal: Knowledgeable about Health Subject/Topic Patient will demonstrate the desired outcomes. 04/27/16 1311 Health Knowledge, Opportunity to Enhance (Adult,NICU,,Obstetrics,Pediatric) Knowledgeable about Health Subject/Topic making progress toward outcome Problem: Urinary Tract Infection (Adult) Goal: Signs and Symptoms of Listed Potential Problems Will be Absent, Minimized or Managed (UrinaryTract Infection) Signs and symptoms of listed potential problems will be absent, minimized or managed by discharge/transition of care (reference Urinary Tract Infection (Adult) CPG). 04/27/16 1311 Urinary Tract Infection Problems Assessed (Urinary Tract Infection) all Problems Present (Urinary Tract Infection) fluid and electrolyte imbalance * Consult Note - Aubrey Horvath MD - 04/27/2016 8:58 AM EDT INFECTIOUS DISEASE INITIAL CONSULT NOTE Reason for Consult: coagulase-negative staphylococcus aureus bacteremia Consulting Service: Transplant surgery Consulting Attending: Tal Eagle MD Admission Date: 04/25/2016 History of Present Illness: 65 y.o. male with a history HCV, DM, HTN and renal failure due to hypertensive nephropathy, who received a donor kidney transplantation in 09/2015, which has been complicated by a ureteral stricture, requiring a permanent percutaneous nephrostomy despite multiple dilatations. He has had multiple bouts of bacteremia due to his nephrostomy. He was doing well until two days ago, when he developed a fever. No recent instrumentation of his nephrostomy. No change in urine. Since yesterday, he has been incontinent of urine. No redness or purulence around the nephrostomy. He was found have coagulase-negative staphylococcus aureus in his blood and urine cultures. He was started on vancomycin and piperacillin/tazobactam and feels much better today. Transplant related ID issues: On tacrolimus 1 mg bid, mycophenolate 250 mg bid On SMX/TMP for PJP px CMV D+/R+, still on valganciclovir BKV in blood undetectable 03/25, but detectable in urine 02/25 Past ID involvement in Mr. Akins's care: - reported Group C bacteremia in [...] EXTREMITY performed by Que Amaro MD at [facility] OR ??? Pro transplantation of kidney N/A 09/16/2015 @KIDNEY TRANSPLANT, WITHOUT RECIPIENT NEPHRECTOMY performed by Franko Larkin MD at [facility] OR ??? Pro transplant, prep cadaver renal graft N/A 09/16/2015 @PREPARATION CADAVERIC RENAL ALLOGRAFT performed by Franko Larkin MD at [facility] OR ??? N/A 09/16/2015 ORGAN ACQUISITION RENAL, CADAVERIC performed by Franko Larkin MD at [facility] OR Prior To Admission Medications: Prescriptions Prior to Admission Medication Sig Dispense Refill Last Dose ??? levothyroxine (SYNTHROID) 100 mcg Tablet Take 100 mcg by mouth daily. Taking at Unknown time ??? acetaminophen (TYLENOL) 500 mg Tablet Take 1,000 mg by mouth every 6 hours as needed for Pain. Taking at Unknown time ??? sulfamethoxazole-trimethoprim (BACTRIM;SEPTRA) 400-80 mg Tablet Take 1 tablet by mouth daily for 364 days. 90 tablet 3 Taking at Unknown time ??? valGANciclovir (VALCYTE) [...] Taking at Unknown time Inpatient Scheduled Medications: ??? vancomycin 1,250 mg Intravenous Q12H And ??? [START ON 04/29/2016] Vancomycin Level - MAR Order Reminder NOT APPLICABLE Once ??? sodium phosphate 15 mmol Intravenous Q4H ??? magnesium sulfate 2 g Intravenous Once ??? potassium chloride 20 mEq Oral Q4H ??? acetaminophen 1,000 mg Oral Q8H ??? calciTRIol 0.5 mcg Oral Daily ??? DILTiazem 120 mg Oral Daily ??? levothyroxine 100 mcg Oral QAM ??? mycophenolate 250 mg Oral BID ??? potassium phosphate (monobasic) 1,000 mg Oral BID ??? tacrolimus 1 mg Oral BID ??? tamsulosin 0.4 mg Oral Nightly ??? valGANciclovir 450 mg Oral BID ??? sodium chloride 0.9 % 5 mL Intravenous BID ??? heparin (porcine) 5,000 Units Subcutaneous Q8H JUAN R ??? pantoprazole 40 mg Oral Daily ??? piperacillin-tazobactam 3.375 g Intravenous Q8H ??? Vancomycin Level - MAR Order Reminder NOT APPLICABLE Once Family History: No family history on file. [...] ??C (97.9 ??F) Temp: [36.5 ??C (97.7 ??F)-39.2 ??C (102.6 ??F)] Heart Rate Heart Rate: 62 Heart Rate: [62-80] Blood Pressure BP: 143/74 BP: (135-156)/(70-74) Respiratory Rate Resp: 20 Resp: [20-32] SpO2 SpO2: 96 % SpO2: [92 %-97 %] General Looks well HEENT No jaundice Heart Regular Lungs Clear Abdomen Soft, transplant in left lower abdomen with nephrostomy without erythema at ostomy site, clear urine in bag Extremities No edema Skin No rash Neuro Grossly intact Lines No central lines Laboratory: Recent Labs 04/27/16 0536 04/26/16 0621 04/25/16 1604 WBC 6.9 6.9 7.5 HGB 14.7 15.5 16.5 HCT 42.6 43.8 47.9 PLATELET 146 177 218 Recent Labs 04/27/16 0536 04/26/16 1641 04/26/16 0621 NA 136 138 136 K 3.3* 3.6 3.3* CL 100 97* 98 CO2 22 26 23 BUN 13 15 13 CREATININE 1.38 1.51* 1.30 Recent Labs 04/25/16 1604 AST 23 ALT 25 ALKPHOS 63 BILITOT 1.6* BILIDIR 0.3 Component Value Date/Time SPGRAVITYUA 1.024 04/25/2016 1607 PHUADIP 6.0 04/25/2016 1607 PROTEINUADIP 30 (A) 04/25/2016 1607 GLUCOSEU Negative 04/25/2016 1607 KETONESUA Negative 04/25/2016 1607 UROBILIUADIP Normal 04/25/2016 1607 BLOODUADIP Moderate (A) 04/25/2016 1607 NITRATEUA Negative 04/25/2016 1607 LEUKOESTERUA Small (A) 04/25/2016 1607 WBCUA 16 (H) 04/25/2016 1607 BILIRUBINUA Negative 04/25/2016 1607 Microbiology: Blood Cultures: 04/25 coagulase-negative staphylococcus aureus 04/26 NGTD x 2 Urine Cultures: 04/25 nephrostomy 1-10k coagulase-negative staphylococcus aureus 04/25 clean catch 50-10k coagulase-negative staphylococcus aureus Assessment: Ethel Akins 65 y.o. male with a history HCV, DM, HTN and renal failure due to hypertensive nephropathy, who received a donor kidney transplantation in 09/2015, which has been complicated by a ureteral stricture, requiring a permanent percutaneous nephrostomy despite multiple dilatations. He has had multiple bouts of bacteremia and is now again admitted with coagulase- negative staphylococcus aureus UTI and bacteremia. No clear inciting event, no recent manipulation of nephrostomy. We recommend exchange of his nephrostomy tube and treatment with vancomycin IV for now, until susceptibilities are reported. We agree with the plan to defer his plan urologic surgery for now, but to schedule it at the tail end of his antibiotic course, so he will still have antibiotic coverage when going into surgery. 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 Recommendations: - stop piperacillin/tazobactam - continue vancomycin per pharmacy dosing with a goal trough 10-15 - check BK virus in urine - exchange nephrostomy tube - please wait for blood cultures to clear and final recommendations on antibiotics before placing aPICC This patient was seen and discussed with ID attending Dr. Horvath. Recommendations discussed withprimary treating team. ID consult service will continue to follow patient. Do not hesitate to page us at [phone] with any further questions or concerns. Franko Kim MD Infectious Disease Fellow Pager [phone] Attending Addendum: I have seen and examined the patient, reviewed the data and agree with the note by Dr. Tipton. Infection of the tube and bacteremia. Would think that exchange of the tube prior to surgery would make it the most sterile environment for the surgery. BK virus in the urine. Wonder if his issue with the ureteral stricture is related to local BK in the ureter. This can happen at the anastamosis with the transplant. There no proven antiviral therapies. I would suggest trying to reduce or to get him off of the MMF if possible and would send tissue pathology when the stricture is removed. If he still has BK in the urine at the time of revision surgery, will need to keep a close eye on the possibility of recurrence. * Consult Note - Eleanor Bird, [facility] [place] - 04/27/2016 7:10 AM EDT Clinical Pharmacist Note-Maci Ethel Akins [id number] Ethel Akins is a 65 y.o. male is being monitored due to antibiotic therapy which includes intravenous vancomycin. Regimen: Vancomycin 1000 mg every 12 hours Targeted Goal Range: 10 - 15 mcg/mL Pharmacokinetic information: Wt Readings from Last 1 Encounters: 04/25/16 97.2 kg (214 lb 4.6 oz) Ht Readings from Last 1 Encounters: 04/25/16 177.8 cm (5' 10) Labs: Vancomycin: VANC TROUGH (mg/L) Date Value 04/27/2016 9.1 Creatinine clearance: CREATININE (mg/dL) Date Value 04/27/2016 1.38 Recommendations: Dosing recommendations: ?? Based on this information a dose of 1250 mg every 12 hours, to start at next scheduled dose should achieve an estimated trough level of 10 - 15 mcg/mL. Monitoring recommendations: ?? A new steady state level should be achieved after 4 half-lives. We will recheck a vancomycin trough level at 0600 (time) on 04/29/2016. We will continue to monitor the patient as long as he remains on vancomycin therapy. Please watch SCr, BUN and fluid status closely. Please page the care area pharmacist with any questions you may have. Alternately, during off-hours you may call [phone] to contact a pharmacist. ELEANOR BIRD [facility] [place] Ext [phone] * Downtime Event Note - Nathen Horton RN - 04/27/2016 4:30 AM EDT System Downtime Recovery The EMR experienced a system downtime. This downtime occurred on April 27 at 0230 for a duration of two hours. During this downtime paper charting was completed by Nathen Horton RN. The following was documented on paper during the downtime and is now being back-entered: vital signs and I&O at 0330. * Plan of Care - Nathen Horton RN - 04/27/2016 2:05 AM EDT Problem: General Plan of Care Goal: Plan of Care Review Outcome: Ongoing (Interventions Implemented as Appropriate) 04/26/16 0233 04/26/16 1944 04/27/16 0152 Plan of Care Review Plan of Care Outcome Status ongoing (interventions implemented as appropriate) -- -- Progress -- -- improving Coping/Psychosocial Response Interventions Plan of Care Reviewed with -- patient -- OUTCOME EVALUATION NOTE: OUTCOME SUMMARY: Tania had a good night. Triggered sepsis bundle at beginning of shift with temp of 38.7C and RR of 32. Covering MD notified, no sepsis protocol initiated. Adequate clear yellow urine output from nephrostomy. Since then, temp and RR trending down, VSS. Infrequent cough, clear lung sounds. Pt very fatigued after busy day and able to sleep in between care. PLAN MOVING FORWARD: Encourage ambulation/mobility. Preserve IV access. INDIVIDUALIZED FALL PREVENTION INTERVENTIONS: Patient-specific fall risk factors per assessment: [current deficits]: Generalized weakness Assistance [level of assistance required for transfers and ambulation]: 2 assist Supervision [direct monitoring required during toileting and ADLs]: Hands on Surveillance [continuous indirect monitoring]: Purposeful rounding, call robles in reach Patient-specific fall prevention interventions for sensory deficits provided, if applicable: [X] N/A CPG GOAL OUTCOME EVALUATION: Goal: Individualization and Mutuality Outcome: Ongoing (Interventions Implemented as Appropriate) 04/25/16181804/26/16 1437 Individualization Patient Specific Preferences -- call me tania Mutuality/Individual Preferences What anxieties, fears or concerns do you have about your health or care? yes (worried about upcoming surgery being postponed) -- What questions do you have about your health or care? none -- What information would help us give you more personalized care? none -- Goal: Fall Prevention-Safe Patient Handling Outcome: Ongoing (Interventions Implemented as Appropriate) 04/26/161943 Safety Interventions Safety Precautions/Fall Reduction environmental modification;fall reduction program maintained;lighting adjusted for task/safety;supervised activity Musculoskeletal Interventions Activity/Level of Assistance up ad chiquita;with 2-person assist Positioning independent Muscle Strengthening activity/mobility promoted;personal routines for BADL/IADL promoted;up in chair encouraged for meals and activities Self-Care Promotion independence encouraged while providing assistance Stephens Fall Risk History of Falling 0 Secondary Diagnosis 15 Ambulatory Aids 0 Intravenous Therapy/Heparin/Saline Lock 20 Gait/Transferring 0 Mental Status 0 Score 35 Activity and Safety Assistive Device None OTHER Stephens Fall Risk Med Goal: Infection Control Outcome: Ongoing (Interventions Implemented as Appropriate) 04/26/161943 Safety Interventions Isolation Precautions standard precautions maintained Infection Prevention nutrition promoted;rest/sleep promoted Coping/Psychosocial Response Interventions Counseling calming techniques promoted;emotional support provided;goal setting facilitated Goal: Discharge Needs Assessment Outcome: Ongoing (Interventions Implemented as Appropriate) 04/25/16181804/25/16 19004/26/16 0233 Discharge Needs Assessment Concerns to be Addressed -- -- denies needs/concerns at this time Readmission Within the Last 30 Days -- -- no previous admission in last 30 days Discharge Planning Comments -- will need to reasses at closer to discharge -- Self-Care Equipment Currently Used at Home -- -- other (see comments) (urostomy supplies) Current Health Anticipated Changes Related to Illness -- -- none Living Environment Transportation Available car;family or friend will provide -- -- Problem: Health Knowledge, Opportunity for Enhanced (Adult, NICU, [place], Obstetrics, Pediatric) Goal: Identify Signs and Symptoms and Related Risk Factors Signs and symptoms and related risk factors are identified upon initiation of Human Response Clinical Practice Guideline (CPG) Outcome: Outcome (s) achieved Date Met: 04/27/16 04/26/16 1437 04/27/16 0152 Health Knowledge, Opportunity for Enhanced Personal Related Risk Factors (Health Knowledge, Opportunity for Enhanced) lack of interest -- Physiological Related Risk Factors (Health Knowledge, Opportunity for Enhanced) -- new development in disease process Treatment Related Related Risk Factors (Health Knowledge, Opportunity for Enhanced) -- complex treatment regimen Signs and Symptoms (Health Knowledge, Opportunity for Enhanced) -- requests information Goal: Knowledgeable about Health Subject/Topic Patient will demonstrate the desired outcomes. Outcome: Ongoing (Interventions Implemented as Appropriate) 04/26/16 1437 Health Knowledge, Opportunity for Enhanced (Adult, NICU, [place], Obstetrics, Pediatric) Knowledgeable about Health Subject/Topic making progress toward outcome * Plan of Care - Ethel Flores RN - 04/26/2016 2:53 PM EDT Problem: General Plan of Care Goal: Plan of Care Review 04/26/16 0233 04/26/16 0840 Plan of Care Review Plan of Care Outcome Status ongoing (interventions implemented as appropriate) -- Progress no change -- Coping/Psychosocial Response Interventions Plan of Care Reviewed with -- patient OUTCOME EVALUATION NOTE: OUTCOME SUMMARY: Pt resting in bed, VSS, febrile Tmax 39.2 (MD notified). Temp control with cool cloths, acetaminophen, exposed body surface area maximized, and fan. Good appetite, OOB for meals. OOB with SBA this morning, now with 2 assist due to increasing weakness over course of day. Lungs clear, new progressingdry cough, non productive, sneezing noted this evening. Extremities warm with good pulses. +BS, -BM, -Nausea. Nephrostomy tube patent draining clear yellow adequate volumes of urine. Blood cultures, down to one IV, discussed need for PICC due to lack of access, however will not be receiving today. Received 10mEq IV K+, mag, and NA+ Phos. PLAN MOVING FORWARD: Antibiotics, follow developing cough, temp control, lytes, PO K+ tonight, I&O. INDIVIDUALIZED FALL PREVENTION INTERVENTIONS: Patient-specific fall risk factors per assessment: [current deficits]: Tethered lines, generalized weakness, malaise. Assistance [level of assistance required for transfers and ambulation]: SBA Supervision [direct monitoring required during toileting and ADLs]: Arms reach Surveillance [continuous indirect monitoring]: jamir Loredo robles in reach, hourly rounding Patient-specific fall prevention interventions for sensory deficits provided, if applicable: [X] Yes glasses provided, non skid socks. CPG GOAL OUTCOME EVALUATION: Ongoing Goal: Individualization and Mutuality 04/25/16 1819 04/26/16 1437 Individualization Patient Specific Preferences -- call me tania Mutuality/Individual Preferences What anxieties, fears or concerns do you have about your health or care? yes (worried about upcoming surgery being postponed) -- What questions do you have about your health or care? none -- What information would help us give you more personalized care? none -- Goal: Fall Prevention-Safe Patient Handling 04/26/16 0840 04/26/16 1400 Safety Interventions Safety Precautions/Fall Reduction environmental modification;low bed;lighting adjusted for task/safety;fall reduction program maintained;nonskid shoes/slippers when out of bed;room near unit station;commode/urinal/bedpan at bedside -- Musculoskeletal Interventions Activity/Level of Assistance -- up ad chiquita;with stand by assist Positioning independent -- Muscle Strengthening activity/mobility promoted;mobility in bed promoted;up in chair encouraged formeals and activities;sitting on edge of bed encouraged -- Self-Care Promotion independence encouraged while providing assistance -- Stephens Fall Risk History of Falling 0 -- Secondary Diagnosis 15 -- Ambulatory Aids 0 -- Intravenous Therapy/Heparin/Saline Lock 20 -- Gait/Transferring 0 -- Mental Status 0 -- Score 35 -- Activity and Safety Assistive Device -- None OTHER Stephens Fall Risk Med -- Goal: Infection Control 04/26/16 0840 Safety Interventions Isolation Precautions standard precautions maintained Infection Prevention rest/sleep promoted;hydration promoted;nutrition promoted Coping/Psychosocial Response Interventions Counseling calming techniques promoted;understanding of situation facilitated;verbalization of feelings encouraged;goal setting facilitated;personal strengths integrated;problem solving facilitated;re assurance provided Goal: Discharge Needs Assessment 04/25/16 1819 04/25/16 1900 04/26/16 4377 Discharge Needs Assessment Concerns to be Addressed -- -- denies needs/concerns at this time Readmission Within the Last 30 Days -- -- no previous admission in last 30 days Discharge Planning Comments -- will need to reasses at closer to discharge -- Self-Care Equipment Currently Used at Home -- -- other (see comments) (urostomy supplies) Current Health Anticipated Changes Related to Illness -- -- none Living Environment Transportation Available car;family or friend will provide -- -- Problem: Health Knowledge, Opportunity for Enhanced (Adult, NICU, , Obstetrics, Pediatric) Goal: Identify Signs and Symptoms and Related Risk Factors Signs and symptoms and related risk factors are identified upon initiation of Human Response Clinical Practice Guideline (CPG) 04/26/16 1437 Health Knowledge, Opportunity for Enhanced Personal Related Risk Factors (Health Knowledge, Opportunity for Enhanced) lack of interest Goal: Knowledgeable about Health Subject/Topic Patient will demonstrate the desired outcomes. 04/26/16 1437 Health Knowledge, Opportunity for Enhanced (Adult, NICU, , Obstetrics, Pediatric) Knowledgeable about Health Subject/Topic making progress toward outcome * Plan of Care - Carmelina Roca, JADEN - 04/26/2016 2:26 PM EDT Problem: Health Knowledge, Opportunity for Enhanced (Adult, NICU, , Obstetrics, Pediatric) Goal: Knowledgeable about Health Subject/Topic Patient will demonstrate the desired outcomes. Peripherally Inserted Central Catheter (PICC) Teaching Sheet Peripherally inserted central catheters ([id number]) (PICC) are used when you need IV (intravenous) medicines and fluids. A catheter is a small flexible plastic tube. The catheter is put in througha vein under your skin. A vein is a tube inside your body that carries blood from the body to the heart. The catheter is usually put into a vein on the inside of your upper arm. Then it is threaded up this vein and ends in the blood vessel near your heart. The PICC catheter may be used for taking blood for laboratory tests. You may also get IV fluids andmedicines quickly and easily. Having the catheter may keep your arm from being stuck many times with a needle. The catheter will have 1-3 small tails (tubes) coming from your arm where the catheter was put in. Why do I need a PICC line or midline catheter? PICC lines are used for terminal makeup operator treatments. PICC lines may be used for up to a year. They areoften put in to give you IV medicines at home. You may need a PICC catheter because caregivers cannot use smaller veins in your body. Smaller veins may be damaged, or they may have poor blood flow. ??? Catheters are also used in case of emergency when you would need medicines or fluids very quickly. ??? The following are medicines and treatments you may get when you have a PICC line. ? Antibiotics. These are medicines to prevent infection. ? Frequent blood sample collection. ? IV medicines that would make your smaller veins sore or damaged. ? Receiving IV fluids for a long period of time. ? Pain medicine. ? Total Parenteral Nutrition: This is also called TPN. TPN is a special liquid food that goes directly into your veins. ? Blood ? Chemotherapy (Medicine for cancer) What are the benefits of having a PICC line put in? Having a PICC line may keep your arm from being stuck many times with a needle to draw blood orstart an IV (intravenous catheter) . ??? Through a PICC catheter, you may have blood taken for tests. You may also get IV fluids and medicines quickly and easily. ??? Small veins can be damaged or irritated by certain drugs or nutritional solutions. A PICC line helps to decrease vein irritation from antibiotics, IV pain drugs, or IV cancer drugs. ??? A PICC line can be left in place when you go home. If you go home with a PICC line in place, home care can be set up via the nurse Senior Svp to help you. What are possible complications of having a PICC line put in? Some possible complications are: ??? bruising, swelling, or infection in the arm with the PICC line ??? mal-positioned catheter (catheter tip in wrong place) ??? occlusion (blocked catheter) ??? mechanical phlebitis (vein irritation) and thrombosis (clot) Your doctor is the person you should talk to if you have questions about what would happen if you do not choose to have a PICC line put in. Your doctor can talk to you about other choices you may have. What should I expect when it is put in? A written consent that gives your ok to have it put in needs to be signed after you understand thatyou are going to have a PICC put in, and all your questions about the procedure have been answered to your satisfaction. This is a safety feature that the hospital practices before doing procedures. An experienced nurse who has been through special training and education will be putting this catheter in. The procedure is done in a specially equipped room in Interventional Radiology on the third floor. The PICC nurse will first talk to you about any questions that you may have. The PICC nurse will explain to you what is going to be done before starting. Once you arrive in the procedure room in Interventional Radiology, the PICC nurse will then set up for the procedure. She will unwrap the sterile kit and open the needed supplies. A gown and mask andgloves will be worn while putting it in. An ultrasound machine will be used to help guide the catheter in the right place. This machine uses a handle with sound waves to find the vein. The area on your arm where the catheter will be put in is then numbed with a medicine put under your skin with a tiny needle. The nurse will then put in the catheter using fluoroscopy (a type of x-ray) as a guide. Once the catheter is in your vein, it will be threaded up your arm to the area beforeyour heart. While it is being threaded, you may be asked to turn your head. When the catheter is in, the nurse will place a small dressing on the site along with a little muñoz which will help keep the catheter in place. After the procedure is done, a radiologist (doctor in x-ray department) will look at your x-ray to make sure that the end of the catheter is in proper position to give your fluids and/or medications. What should I expect in the care of my PICC? A dressing that is specially made to prevent infections will be put on. After this, the dressing will only be changed once a week unless it needs it sooner. If you go home with the catheter in, you may take a shower as long as you keep the site dry. You can do this by wearing a specially fitted PICC protector that will be provided to you before dischargefrom the hospital. The dressing at the site must be kept clean and dry. It is important that you watch for signs of infection at the site. Your healthcare provider should be notified if these occur: ??? Redness ??? Swelling ??? Pus ??? Pain at the site Other reasons to notify your healthcare provider are: ??? Catheter becomes partially or totally removed ??? Unable to infuse medication/fluid ??? Unable to draw back blood from the catheter. This may be an early sign that a clot is forming on the end of the catheter. If this occurs, a medicine called Cathflo may be used to dissolve this clot. Ask the PICC nurse or your doctor, any questions you may have so you feel secure in consenting to having a PICC line. References: Vascular Access Device Selection, Insertion, and Management, [employer] 04/09. A Review of the Efficacy, Safety, Use, and Administration of Cathflo, [employer] 2006 * Plan of Care - Nathen Horton RN - 04/26/2016 3:13 AM EDT Problem: General Plan of Care Goal: Plan of Care Review Outcome: Ongoing (Interventions Implemented as Appropriate) 04/25/16 1945 04/26/16 0233 Plan of Care Review Plan of Care Outcome Status -- ongoing (interventions implemented as appropriate) Progress -- no change Coping/Psychosocial Response Interventions Plan of Care Reviewed with patient -- OUTCOME EVALUATION NOTE: OUTCOME SUMMARY: Tania had an okay night. Urostomy to dependent drainage bag. Urine sample sent for culture. Adequate amounts of clear yellow urine. No pain or nausea overnight. High temperature each time vitals taken,MD aware. PLAN MOVING FORWARD: Monitor temperatures, urine output INDIVIDUALIZED FALL PREVENTION INTERVENTIONS: Patient-specific fall risk factors per assessment: [current deficits]: Generalized weakness Assistance [level of assistance required for transfers and ambulation]: 1 assist Supervision [direct monitoring required during toileting and ADLs]: Arms reach Surveillance [continuous indirect monitoring]: Purposeful rounding, call robles in reach Patient-specific fall prevention interventions for sensory deficits provided, if applicable: [X] N/A CPG GOAL OUTCOME EVALUATION: Goal: Individualization and Mutuality Outcome: Ongoing (Interventions Implemented as Appropriate) 04/25/161818 Mutuality/Individual Preferences What anxieties, fears or concerns do you have about your health or care? yes (worried about upcoming surgery being postponed) What questions do you have about your health or care? none What information would help us give you more personalized care? none Goal: Fall Prevention-Safe Patient Handling Outcome: Ongoing (Interventions Implemented as Appropriate) 04/25/16194404/26/16232 Safety Interventions Safety Precautions/Fall Reduction environmental modification;fall reduction program maintained;lighting adjusted for task/safety;supervised activity -- Musculoskeletal Interventions Activity/Level of Assistance up ad chiquita;with 1-person assist -- Positioning independent -- Muscle Strengthening -- activity/mobility promoted Self-Care Promotion -- independence encouraged while providing assistance Stephens Fall Risk History of Falling 0 -- Secondary Diagnosis 15 -- Ambulatory Aids 0 -- Intravenous Therapy/Heparin/Saline Lock 20 -- Gait/Transferring 0 -- Mental Status 0 -- Score 35 -- Activity and Safety Assistive Device None -- OTHER Stephens Fall Risk Med -- Goal: Infection Control Outcome: Ongoing (Interventions Implemented as Appropriate) 04/25/161944 Safety Interventions Isolation Precautions standard precautions maintained Infection Prevention rest/sleep promoted Coping/Psychosocial Response Interventions Counseling calming techniques promoted;emotional support provided;goal setting facilitated Goal: Discharge Needs Assessment Outcome: Ongoing (Interventions Implemented as Appropriate) 04/25/16181804/25/16189904/26/16232 Discharge Needs Assessment Concerns to be Addressed -- -- denies needs/concerns at this time Readmission Within the Last 30 Days -- -- no previous admission in last 30 days Discharge Planning Comments -- will need to reasses at closer to discharge -- Self-Care Equipment Currently Used at Home -- -- other (see comments) (urostomy supplies) Current Health Anticipated Changes Related to Illness -- -- none Living Environment Transportation Available car;family or friend will provide -- -- * Plan of Care - Ryan Fuchs RN - 04/25/2016 7:06 PM EDT Problem: General Plan of Care Goal: Plan of Care Review OUTCOME EVALUATION NOTE: OUTCOME SUMMARY: admitted from clinic with . Oriented to room and unit. Alert orientedx3. Temp 39.4 . Ice bag tochest applied. States took tylenol at 4 PM. 2 IV started per IV team right arm. IV bolus started. IV maintaint at 150cc/hr. IV antibiotics up. Voiding sm amount of marry urine. urostomy at right lateral side intact clamped. States open it up at night time. PLAN MOVING FORWARD: Finish admission INDIVIDUALIZED FALL PREVENTION INTERVENTIONS: Patient-specific fall risk factors per assessment: [current deficits]: Weakness, IV tubings, Assistance [level of assistance required for transfers and ambulation]: One assist needed Supervision [direct monitoring required during toileting and ADLs]: one assist Surveillance [continuous indirect monitoring]: julio césar loredo Patient-specific fall prevention interventions for sensory deficits provided, if applicable: [X] No CPG GOAL OUTCOME EVALUATION: Review cont Goal: Individualization and Mutuality 04/25/16 1819 Mutuality/Individual Preferences What anxieties, fears or concerns do you have about your health or care? yes (worried about upcoming surgery being postponed) Goal: Fall Prevention-Safe Patient Handling 04/25/16 1854 Stephens Fall Risk Gait/Transferring 10 Mental Status 0 Goal: Infection Control 04/25/16 1900 Safety Interventions Isolation Precautions standard precautions maintained Infection Prevention rest/sleep promoted;hydration promoted;bronchial hygiene promoted;promote handwashing Goal: Discharge Needs Assessment 04/25/16 1900 Discharge Needs Assessment Discharge Planning Comments will need to reasses at closer to discharge * Consult Note - Ewelina Solorzano [facility] - 04/25/2016 5:56 PM EDT Dosing recommendations: ?? Based on this information a dose of 1000 mg every 12 hours, to start at 18:00 (time) on 04/25/2016 should achieve an estimated trough level of 10 - 15 mcg/mL. Monitoring recommendations: ?? A new steady state level should be achieved after 4 half-lives. Recheck vancomycin trough level (30 minutes prior to a scheduled dose) if significant changes in SCr, BUN or fluid status occur; otherwise recheck serum trough levels 30 minutes prior to a scheduled dose in 5-7 days. We will continue to monitor the patient as long as he remains on vancomycin therapy. Please watch SCr, BUN and fluid status closely. Please page the care area pharmacist with any questions you may have. Alternately, during off-hours you may call [phone] to contact a pharmacist. documented in this encounter Plan of Treatment Upcoming Encounters Date Type Department Care Team (Late st Contact Info) Description 04/15/2024 10:00 AM EDT Hospital Encounter [place] [address] Arrived Scheduled Referrals Name Type Priority Associated Diagnoses Orde r Schedule OPAT: Order / Recommendation for Post Discharge IV Antibiotic Management Outpatient Referral Routine Bacteremia due to coagulase-negative Staphylococcus Ordered: 04/30/2016 documented as of this encounter Procedures Procedure Name Priority Date/Time Associated Diagnosis Comments CARDIAC ENZYMES ([facility]) STAT 04/30/2016 2:00 PM EDT IR ALL PROCEDURES Routine 04/30/2016 11:22 AM EDT BK QUANT BLOOD RESULT Routine 04/30/2016 5:12 AM EDT BKV QUANT BLOOD Routine 04/30/2016 5:12 AM EDT PHOSPHORUS Routine 04/30/2016 5:12 AM EDT MAGNESIUM Routine 04/30/2016 5:12 AM EDT BASIC METABOLIC PANEL Routine 04/30/2016 5:12 AM EDT VANCOMYCIN, TROUGH Timed 04/29/2016 6: [address] PICC LINE: CONTACT VASCULAR ACCESS Routine 04/29/2016 11:51 AM EDT XR PICC PLACEMENT OVER 5 YEARS (IV TEAM) Routine 04/29/2016 11:40 AM EDT PHOSPHORUS Routine 04/29/2016 3:40 AM EDT MAGNESIUM Routine 04/29/2016 3:40 AM EDT BASIC METABOLIC PANEL Routine 04/29/2016 3:40 AM EDT URINE CULTURE Routine 04/28/2016 1:44 PM EDT TACROLIMUS LEVEL Routine 04/28/2016 7:59 AM EDT BLOOD CULTURE STAT 04/28/2016 7:59 AM EDT BMP W/FASTING GLUCOSE Routine 04/28/2016 6:06 AM EDT HEMOGRAM Routine 04/28/2016 6:06 AM EDT DIFFERENTIAL, AUTOMATED Routine 04/28/2016 6:06 AM EDT BLOOD CULTURE Routine 04/28/2016 6:06 AM EDT CBC (WITH DIFF) Routine 04/28/2016 6:06 AM EDT PHOSPHORUS Routine 04/28/2016 6:06 AM EDT MAGNESIUM Routine 04/28/2016 6:06 AM EDT BK QUANT URINE RESULT Routine 04/27/2016 4:26 PM EDT BKV QUANT URINE Routine 04/27/2016 4:26 PM EDT BLOOD CULTURE Routine 04/27/2016 11:32 AM EDT URINALYSIS WITH REFLEX CULTURE Routine 04/27/2016 11:15 AM EDT BMP W/FASTING GLUCOSE Routine 04/27/2016 5:36 AM EDT SCAN, PERIPHERAL BLOOD Routine 04/27/2016 5:36 AM EDT HEMOGRAM Routine 04/27/2016 5:36 AM EDT DIFFERENTIAL, AUTOMATED Routine 04/27/2016 5:36 AM EDT CBC (WITH DIFF) Routine 04/27/2016 5:36 AM EDT PHOSPHORUS Routine 04/27/2016 5:36 AM EDT MAGNESIUM Routine 04/27/2016 5:36 AM EDT VANCOMYCIN, TROUGH Timed 04/27/2016 5: 36 AM EDT BMP W/FASTING GLUCOSE Routine 04/26/2016 4:41 PM EDT BLOOD CULTURE STAT 04/26/2016 4:41 PM EDT BLOOD CULTURE STAT 04/26/2016 4:41 PM EDT BMP W/FASTING GLUCOSE Routine 04/26/2016 6:21 AM EDT HEMOGRAM Routine 04/26/2016 6:21 AM EDT DIFFERENTIAL, AUTOMATED Routine 04/26/2016 6:21 AM EDT CBC (WITH DIFF) Routine 04/26/2016 6:21 AM EDT PHOSPHORUS Routine 04/26/2016 6:21 AM EDT MAGNESIUM Routine 04/26/2016 6:21 AM EDT URINE CULTURE Routine 04/25/2016 10:25 PM EDT XR CHEST PA AND LATERAL Routine 04/25/2016 8:04 PM EDT documented in this encounter Results * Cardiac Enzymes (04/30/2016 2:00 PM EDT) Troponin-T <0.03 <=0.03 ng/mL [facility] Comment: 0.03 ng/mL: Represents the 99th percentile upper reference limit for normals. >0.03 ng/mL: Elevated cardiac troponin T level indicative of myocardial damage. Diagnosis of acute, evolving or recent WI requires a typical rise and gradual fall of cTnT with at least ONE of the following: a) Ischemic symptoms b) Development of pathologic Q waves on the ECG c) ECG changes indicative of eschemia (S-T segment elevation/depression) d) Coronary artery intervention Serial bloods should be obtained for testing on admission, at 6 to 9 hrs and again at 12 to 24 hrs if earlier samples are negative and the clinical index of suspicion is high. Reference: [Myocardial infarction redefined? a consensus document of the Joint Society of Cardiology/[place] College of Cardiology Committee for the redefinition of myocardial infarction. ??Journal of the [place] College of [employer]iology 2000; 36: 959-969] Creatine Kinase 36 0 - 200 unit/L [facility] Blood specimen (specimen) 04/30/2016 2:00 PM EDT 04/30/2016 2:25 PM EDT Narrative Resulting Agency Comment Spec In Lab Que Amaro MD CHEMISTRY ROCHELLE JENNINGS Performing Organization Address City/State/[facility] Co de Phone Number [facility] [place] [address] * IR all procedures (04/30/2016 11:22 AM EDT) Anatomical Region Laterality Modality Abdomen X-Ray Angiograph y Narrative 04/30/2016 4:07 PM EDT IR PROCEDURE NOTE ? Procedure: Exchange of the left nephroureteral tube for a JJ ureteral stent and an external nephrostomy tube. ? Indication for Procedure: 65 y.o. male with history of transplant kidney c/b ureteral stricture and hydronephrosis. Patient is now s/p 3 of 3 planned ureteroplasty. Transplant surgery service requested conversion of the transplant NU for a PCN and JJ stent. ? Procedure events and findings: Informed consent was obtained after the risks, benefits and complications of the procedure were all explained. Due to the painful nature of the procedure, patient was sedated by the IR nurse with split doses of fentanyl and versed. ? Maximum sterile barrier technique used throughout the procedure. The patient was prepped and draped in supine position. Branding Machine Tender image obtained. Contrast injection confirmed catheter location. ? The catheter was cut and an 0.035 wire was advanced into the bladder and the catheter was removed. An 8 Fr sheath was placed and a second wire was placed through the sheath into the renal collecting system. A 4.7 Fr 12 cm JJ ureteral stent was placed with the distal tip in the bladder and the proximal tip in the renal pelvis. ??The stent pulled back when the positioning string was retracted and the stent then removed. The same process was then used to place a 4.7 Fr 12 cm JJ ureteral stent with the distal pigtail in the bladder and the proximal in the renal pelvis. ?? A 10.2 Fr percutaneous nephrostomy tube was placed over the safety wire and the pigtail in the superior renal pelvis. Wires were removed. Contrast study performed showing correct position and passage of contrast to the bladder. Catheter secured to skin and left to bag drainage. ? Medications: Fentanyl 100 mcg IV, Versed 1.5 mg IV, 1% Lidocaine <10ccs subcutaneous. Contrast: 15 cc's Omnipaque 350 Fluoro time: 2.3 min Est Blood Loss: <5cc. ? Complications: No immediate ? Impression: ?? 1. Removal of existing left NU stent. 2. Placement of a 4.7 Fr, 10 cm JJ ureteral stent. 3. Placement of a 10.2 Fr nephrostomy, open to bag drainage. Fellow: Jaylin Moreira DO Attending: Dr. Ellsworth, I was present throughout this procedure. Que Amaro MD [facility] [place] ORDERAB LES * BK Quant Blood Result (04/30/2016 5:12 AM EDT) BKV Blood Result Not Detected [facility] BKV Blood Interp BK Virus Plasma Result Interpretation Result: BK Virus not detected Specimen type: plasma Assay Range: 2.83-8.83 log copies/mL (6.8x10^2 - 6.8x10^8 copies/mL) Methods: Quantitative real-time polymerase chain reaction (PCR) of viral DNA isolated from plasma was performed using [employer] (formerly, [employer]) BKV analyte-specific reagents and the Applied Biosystems [...] Advanced Technology (CGAT) Laboratory at [facility]. It has not been cleared or approved by the FDA. The laboratory is regulated under CLIA as qualified to perform high-complexity testing. This test is used for clinical purposes. It should not be regarded as investigational or for research. [facility] Comment: [VERIFIED DATE]05.21.16 Verified By:Xiomy Gupta (Electronic Signature) Blood specimen (specimen) 04/30/2016 5:12 AM EDT 04/30/2016 10:00 AM EDT Narrative Resulting Agency Comment Spec In Lab Que Amaro MD HEMATOLOGY ORD ERABLES Performing Organization Address City/[facility]/ZIP Co de Phone Number [facility] [place] [address] * Phosphorus (04/30/2016 5:12 AM EDT) Phosphorus 2.5 2.5 - 4.5 mg/dL [facility] Blood specimen (specimen) 04/30/2016 5:12 AM EDT 04/30/2016 5:21 AM EDT Narrative Resulting Agency Comment Spec In Lab Que Amaro MD CHEMISTRY ORDBhargav JENNINGS Performing Organization Address City/[facility]/ZIP Co de Phone Number [facility] [place] [address] * (ABNORMAL) Magnesium (04/30/2016 5:12 AM EDT) Magnesium 0.59(L) 0.69 - 1.07 mmol/L [facility] Blood specimen (specimen) 04/30/2016 5:12 AM EDT 04/30/2016 5:21 AM EDT Narrative Resulting Agency Comment Spec In Lab Que Amaro MD CHEMISTRY ROCHELLE JENNINGS [facility] [place] [address] * Basic Metabolic Panel (non-fasting) (04/30/2016 5:12 AM EDT) Glucose 163 65 - 199 mg/dL [facility] Comment:Diabetes: >=200 mg/d L plus symptoms Blood Urea Nitrogen 15 10 - 20 mg/dL [facility] Creatinine 1.10 0.80 - 1.50 mg/dL [facility] Comment: Please note that the pediatric reference intervals supplied above were not validated at [facility]. Results from pediatric patients should be interpreted in conjunction to the patient's age, height and muscle mass. Sodium 140 135 - 145 mmol/L [facility] Potassium 3.5 3.5 - 5.0 mmol/L [facility] Comment: Please note: ??Patients with WBC >100,000 may have falsely elevated Potassium levels. ??For accurate Potassium quantification in these patients send serum separator tube (gold top) for subsequent determinations. ??Contact the Clinical Chemistry Laboratory if there are any questions. Chloride 102 98 - 107 mmol/L [facility] Carbon Dioxide 25 22 - 31 mmol/L [facility] Anion Gap 13 5 - 15 mmol/L [facility] Calcium 8.9 8.5 - 10.5 mg/dL [facility] Est Glomerular Filtration Rate >60 >=60 [facility] [...] the following links into your internet browser. [email or web address] Blood specimen (specimen) 04/30/2016 5:12 AM EDT 04/30/2016 5:21 AM EDT Narrative Resulting Agency Comment Spec In Lab Que Amaro MD CHEMISTRY ORDE RABLENORE Performing Organization Address [facility] de Phone Number [facility] [place] [address] * Vancomycin, trough (04/29/2016 6:07 PM EDT) [facility] Vancomycin, Trough 13.2 mg/L [facility] Comment: Therapeutic range for complicated infections such as bacteremia, endocarditis, osteomyelitis, meningitis, and hospital-acquired pneumonia caused by S. aureus: 15-20 mg/L Therapeutic range for other indications: 10-15 mg/L Toxic: >25 mg/L Reference: Vancomycin Therapeutic Monitoring: Review and Recommendations from the ASHP, IDSA and SIDP Task Force. ??Am J [employer]-Syst Pharm. 2009; 66:82-98 Blood specimen (specimen) 04/29/2016 6:07 PM EDT 04/29/2016 6:19 PM EDT Narrative Resulting Agency Comment Spec In Lab Tal Eagle MD CHEMISTRY ORDERAB LES Performing Organization Address [facility] de Phone Number [facility] [place] [address] * Place PICC Line: Contact Vascular Access Page [phone] Extremity to exclude: DO NOT use LEFT Arm; Is PICC procedure required PRIOR to patients discharge? Yes (04/29/2016 11:51 AM EDT) Narrative Carmelina Roca, JADEN - 04/29/2016 11:51 AM EDT Carmelina Roca RN ? 04/29/2016 11:51 AM PICC/Midline Insertion Procedure Note Indications: Anti-infective This insertion was not to replace a malfunctioning catheter. This insertion was not due to a suspected line-associated infection. Location of Procedure: X-Ray Room 11 Risks and Benefits: The risks and benefits of this procedure were reviewed and informed consent was obtained obtained. Time Out: Prior to the start of the procedure, the patient's identity, intended procedure, site/side, correct patient positioning and presence of the site princess was confirmed as applicable. The medical history and chart were reviewed to rule out potential contraindications to the planned procedure. Hand Hygiene: The daytime babysitter did not perform hand hygiene prior to line insertion. Catheter type: PICC Lot number: [id number] Procedure Technique: Skin was prepped with chlorhexidine. Skin preparation agent was completely dry at the time of first skin puncture. The following barrier precaution methods were used:large sterile drape, maske/eye shield, large sterile gown, sterile gloves and cap. 2 ml of 1% Lidocaine was used for skin wheal. Ultrasound was used for guidance. ??Radiographic contrast agent was not injected for vein identification. Procedure Details: Order received for catheter placement. A 4 Fr. single lumen Bard Power catheter was placed into the right basilic vein over a 0.018 inch guidewire using modified seldinger technique and fluoroscopy. Arm circumference was 36 cm at 2 cm above the insertion site. Final catheter length (with trimming): 42 cm Internal: 42 cm External: 0 cm Tip in SVC per Dr. DILLON The line was not placed over a guidewire. Post Procedure: Diagnosis: COMPLICATIONS S/P RENAL TX Blood return noted on aspiration of line after placement confirmed. 10 mls of normal saline infused free flowing to gravity via PICC after insertion. Sterile dressing applied: CHG Impregnated Tegaderm. Findings: The patient did tolerate the procedure well. No Complications. Procedure Comments: NONE CARMELINA ROCA RN 04/29/2016 Que Amaro MD PROCEDURE/SAE R SURGICAL ORDERABLES * XR PICC Placement Over 5 Years (IV Team) (04/29/2016 11:40 AM EDT) Anatomical Region Laterality Modality N/A Radio Fluoroscop y Impressions 04/29/2016 3:20 PM EDT FINDINGS AND IMPRESSION: Intraprocedural frontal radiograph of the mediastinum demonstrates a Right PICC, with the catheter tip projected at the inferior aspect of the SVC. I have personally reviewed the image(s) and the residents interpretation and agree with the findings, Nadia Dillon at 04/29/2016 3:20 PM Narrative 04/29/2016 3:20 PM EDT EXAMINATION: XR PICC PLACEMENT OVER 5 YEARS (IV TEAM) CLINICAL HISTORY: Confirmation of PICC line placement TECHNIQUE: C-arm placement of PICC. Limited view of the line tip only. COMPARISON: PA and lateral radiographs of the chest dated April 25, 2016. Procedure Note Nadia Hdz MD - 04/29/2016 EXAMINATION: XR PICC PLACEMENT OVER 5 YEARS (IV TEAM) CLINICAL HISTORY: Confirmation of PICC line placement TECHNIQUE: C-arm placement of PICC. Limited view of the line tip only. COMPARISON: PA and lateral radiographs of the chest dated April. IMPRESSION FINDINGS AND IMPRESSION: Intraprocedural frontal radiograph of themediastinum demonstrates a Right PICC, with the catheter tip projected at theinferior aspect of the SVC. I have personally reviewed the image(s) and the residents interpretationand agree with the findings, Nadia Dillon at 04/29/2016 3:20PM Que Amaro MD IMG FLUORO ORD ERABLES * Phosphorus (04/29/2016 3:40 AM EDT) Phosphorus 2.9 2.5 - 4.5 mg/dL [facility] Blood specimen (specimen) 04/29/2016 3:40 AM EDT 04/29/2016 3:54 AM EDT Narrative Resulting Agency Comment Spec In Lab Que Amaro MD CHEMISTRY ORDBhargav JENNINGS [facility] Organization Address City/State/ZIP Co de Phone Number [facility] [place] [address] * (ABNORMAL) Magnesium (04/29/2016 3:40 AM EDT) Magnesium 0.64(L) 0.69 - 1.07 mmol/L [facility] Blood specimen (specimen) 04/29/2016 3:40 AM EDT 04/29/2016 3:54 AM EDT Narrative Resulting Agency Comment Spec In Lab Que Amaro MD CHEMISTRY ROCHELLE JENNINGS [facility] [place] [address] * Basic Metabolic Panel (non-fasting) (04/29/2016 3:40 AM EDT) Glucose 168 65 - 199 mg/dL [facility] Comment:Diabetes: >=200 mg/d L plus symptoms Blood Urea Nitrogen 12 10 - 20 mg/dL [facility] Creatinine 1.13 0.80 - 1.50 mg/dL [facility] Comment: Please note that the pediatric reference intervals supplied above were not validated at [facility]. Results from pediatric patients should be interpreted in conjunction to the patient's age, height and muscle mass. Sodium 142 135 - 145 mmol/L [facility] Potassium 3.7 3.5 - 5.0 mmol/L [facility] Comment: Please note: ??Patients with WBC >100,000 may have falsely elevated Potassium levels. ??For accurate Potassium quantification in these patients send serum separator tube (gold top) for subsequent determinations. ??Contact the Clinical Chemistry Laboratory if there are any questions. Chloride 103 98 - 107 mmol/L [facility] Carbon Dioxide 25 22 - 31 mmol/L [facility] Anion Gap 14 5 - 15 mmol/L [facility] Calcium 9.1 8.5 - 10.5 mg/dL [facility] Est Glomerular Filtration Rate >60 >=60 [facility] [...] the following links into your internet browser. [email or web address] Blood specimen (specimen) 04/29/2016 3:40 AM EDT 04/29/2016 3:54 AM EDT Narrative Resulting Agency Comment Spec In Lab Que Amaro MD CHEMISTRY ORDBhargav JENNINGS Performing Organization Address [facility] Co de Phone Number [facility] [place] [address] * Urine culture Nephrostomy Urine (04/28/2016 1:44 PM EDT) Urine Culture No growth (Less than 100 cfu/ml). [facility] Urine specimen from nephrostomy tube (specimen) 04/28/2016 1:44 PM EDT 04/28/2016 3:44 PM EDT Narrative Resulting Agency Comment Spec In Lab Que Amaro MD MICROBIOLOGY - GENERAL ORDERABLES Performing Organization Address [facility] de Phone Number [facility] [place] [address] * Blood culture (04/28/2016 7:59 AM EDT) Blood Culture No growth at 5 days. [facility] Blood specimen (specimen) 04/28/2016 7:59 AM EDT 04/28/2016 8:20 AM EDT Comment:R AC Narrative Resulting Agency Comment Spec In Lab Tal Eagle MD MICROBIOLOGY - BL OOD ORDERABLES Performing Organization Address [facility] Co de Phone Number [facility] [place] [address] * Tacrolimus level (04/28/2016 7:59 AM EDT) Tacrolimus 7.1 ng/mL [facility] Comment: Trough therapeutic: ??5-15 ng/mL Performed by ultra-performance liquid chromatography tandem mass spectrometry (UPLCMS/MS). Blood specimen (specimen) 04/28/2016 7:59 AM EDT 04/28/2016 11:12 AM EDT Narrative Resulting Agency Comment Spec In Lab Tal Eagle MD CHEMISTRY ORDERAB LES [facility] [place] [address] * Differential, Automated (04/28/2016 6:06 AM EDT) Neutrophil % 66.0 % [facility] Neutrophil Absolute 4.48 1.70 - 6.10 x10(3)/[facility] Lymph % 22.5 % [facility] Lymphocytes Abs 1.5 0.9 - 3.2 x10(3)/[facility] Monocyte % 7.9 % [facility] Monocyte Abs 0.5 0.3 - 0.9 x10(3)/[facility] Eos % 2.6 % [facility] Eosinophils Abs 0.2 0.0 - 0.4 x10(3)/[facility] Basophil % 0.7 % [facility] Baso Absolute 0.0 0.0 - 0.1 x10(3)/[facility] Immature Gran % 0.30 % [facility] Comment: Immature granulocytes(IG's)percentage and absolute count will include metamyelocytes, myelocytes, and promyelocytes. Blood smears from CBCs yielding IG's will be scanned manually for concordance. If this scan disagrees with the automated IG or if promyelocytes are noted, a manual differential will be performed. Immature Gran Absolute 0.02 0.00 - 0.04 x10(3)/[facility] Blood specimen (specimen) 04/28/2016 6:06 AM EDT 04/28/2016 6:18 AM EDT Narrative Resulting Agency Comment Spec In Lab Tal Eagle MD HEMATOLOGY ORDERA BLES [facility] [place] [address] * (ABNORMAL) Hemogram (04/28/2016 6:06 AM EDT) White Blood Cell 6.8 4.0 - 9.5 x10(3)/mc L [facility] Red Blood Cell 4.66 4.58 - 5.54 x10(6)/mc L [facility] Hemoglobin 15.0 13.7 - 16.5 gm/dL [facility] Hematocrit 43.5 40.5 - 48.5 % [facility] Mean Cell Volume 93.3(H) 82.9 - 93.1 fL [facility] Mean Cell Hemoglobin 32.2(H) 27.5 - 32.1 pg [facility] Mean Cell Hemoglobin Concentration 34.5 32.0 - 35.7 gm/dL [facility] Platelet 162 145 - 357 x10(3)/mc L [facility] RDW Standard Deviation 43.8 36.0 - 45.0 [facility] RDW coefficient of variation 12.7 11.4 - 13.8 % [facility] Mean Platelet Volume 9.7 7.6 - 12.9 fL [facility] NRBC% auto 0.0 % [facility] NRBC Absolute 0.000 0.000 - 0.000 x10(3)/mc L [facility] Blood specimen (specimen) 04/28/2016 6:06 AM EDT 04/28/2016 6:18 AM EDT Narrative Resulting Agency Comment Spec In Lab Tal Eagle MD HEMATOLOGY ORDERA BLES [facility] [place] [address] * Blood culture (04/28/2016 6:06 AM EDT) Blood Culture No growth at 5 days. [facility] Blood specimen (specimen) 04/28/2016 6:06 AM EDT 04/28/2016 7:42 AM EDT Comment:R WRIST Narrative Resulting Agency Comment Spec In Lab Que Amaro MD MICROBIOLOGY - BLOOD ORDERABLES Performing Organization Address City/[facility] Co de Phone Number [facility] [place] [address] * Phosphorus (04/28/2016 6:06 AM EDT) Phosphorus 2.5 2.5 - 4.5 mg/dL [facility] Blood specimen (specimen) 04/28/2016 6:06 AM EDT 04/28/2016 6:22 AM EDT Narrative Resulting Agency Comment Spec In Lab Tal Eagle MD CHEMISTRY ORDERAB LES Performing Organization Address [facility] de Phone Number [facility] [place] [address] * (ABNORMAL) Magnesium (04/28/2016 6:06 AM EDT) Magnesium 0.67(L) 0.69 - 1.07 mmol/L [facility] Blood specimen (specimen) 04/28/2016 6:06 AM EDT 04/28/2016 6:22 AM EDT Narrative Resulting Agency Comment Spec In Lab Tal Eagle MD CHEMISTRY ORDERAB LES Performing Organization Address [facility] Co de Phone Number [facility] [place] [address] * (ABNORMAL) BMP w/fasting Glucose (04/28/2016 6:06 AM EDT) Glucose Fasting 150(H) 65 - 99 mg/dL [facility] [...] of Diabetes Mellitus, Position Statement from the [place] [employer]. ??Diabetes Care, Volume 33, Supplement 1, Jul 2009 Blood Urea Nitrogen 10 10 - 20 mg/dL [facility] Creatinine 1.10 0.80 - 1.50 mg/dL [facility] Comment: Please note that the pediatric reference intervals supplied above were not validated at [facility]. Results from pediatric patients should be interpreted in conjunction to the patient's age, height and muscle mass. Sodium 142 135 - 145 mmol/L [facility] Potassium 3.5 3.5 - 5.0 mmol/L [facility] Comment: Please note: ??Patients with WBC >100,000 may have falsely elevated Potassium levels. ??For accurate Potassium quantification in these patients send serum separator tube (gold top) for subsequent determinations. ??Contact the Clinical Chemistry Laboratory if there are any questions. Chloride 104 98 - 107 mmol/L [facility] Carbon Dioxide 25 22 - 31 mmol/L [facility] Anion Gap 13 5 - 15 mmol/L [facility] Calcium 9.1 8.5 - 10.5 mg/dL [facility] Est Glomerular Filtration Rate >60 >=60 [facility] [...] the following links into your internet browser. [email or web address] Blood specimen (specimen) 04/28/2016 6:06 AM EDT 04/28/2016 6:22 AM EDT Narrative Resulting Agency Comment Spec In Lab Tal Eagle MD CHEMISTRY ORDERAB LES [facility] [place] [address] * BK Quant Urine Result (04/27/2016 4:26 PM EDT) BKV Urine Result Positive [facility] BKV Urine Interp BK Virus Urine Result Interpretation Result: Positive for BK Virus log concentration (copies/mL urine): 4.04 log copies/mL (1.1x10^4 copies/mL) Assay Range: urine: 2.83-8.83 log copies/mL (6.8x10^2 - 6.8x10^8 copies/mL ) Results are reported as log copies/mL. ??Changes of less than 1.0 log between serial samples may not be clinically significant. Methods: Quantitative real-time polymerase chain reaction (PCR) of viral DNA isolated from urine was performed using [employer] BKV (ASR) reagents and the [employer] 7500 FAST Real-Time PCR System. In addition, the PCR product sequence is confirmed using physical properties (melting curve analysis). This test was developed and its performance determined by the [facility] Molecular Pathology Laboratory. It has not been cleared or approved by the U.S. Food and Drug Administration. This test is used for clinical purposes and should not be considered investigational or for research purposes. The Molecular Pathology Laboratory is certified by the Clinical Laboratory Improvement Act of 1988 and as such is allowed to perform high complexity clinical testing. [facility] Comment: [VERIFIED DATE]05.01.16 Verified By:Jimmy Gleason (Electronic Signature) Urine specimen (specimen) 04/27/2016 4:26 PM EDT 04/28/2016 10:43 AM EDT Narrative Resulting Agency Comment Spec In Lab Que Amaro MD HEMATOLOGY ORD ERABLES Performing Organization Address City/[facility]/ZIP Co de Phone Number [facility] [place] [address] * Blood culture (04/27/2016 11:32 AM EDT) Blood Culture No growth at 5 days. [facility] Blood specimen (specimen) STRUCTURE OF RIGHT HAND / Unknown 04/27/2016 11:32 AM EDT 04/27/2016 12:17 PM EDT Narrative Resulting Agency Comment Spec In Lab Que Amrao MD MICROBIOLOGY - BLOOD ORDERABLES Performing Organization Address [facility] Co de Phone Number [facility] [place] [address] * (ABNORMAL) Urinalysis with reflex Culture (04/27/2016 11:15 AM EDT) Glucose, Urine Dipstick Negative Negative [...] [facility] pH, Urn (dipstick) 7.0 5.0 - 8.0 [facility] Blood, Urine Dipstick Moderate(A) Negative mg/dL [facility] Ketone, Urine Dipstick Negative Negative mg/dL [facility] Nitrite, Urine Dipstick Negative Negative [facility] Leukocytes, Urine Dipstick Negative Negative [facility] Appearance, Urine Dipstick Clear Clear [facility] Specific [place] Urine Automated 1.008 1.002 - 1.030 [facility] Color, Urine Dipstick Straw Yellow [facility] RBC, Urine 68(H) 0 - 3 /HPF [facility] WBC, Urine 4(H) 0 - 3 /HPF [facility] Bacteria, Urine Rare(A) None /HPF [facility] Reflex to Culture No [facility] Urine specimen from nephrostomy tube (specimen) 04/27/2016 11:15 AM EDT 04/27/2016 12:07 PM EDT Narrative Resulting Agency Comment Spec In Lab Que Amaro MD URINE ORDERABL ES Performing Organization Address [facility]/ZIP Co de Phone Number [facility] [place] [address] * Scan, Peripheral Blood (04/27/2016 5:36 AM EDT) Plat estimate Normal [facility] RBC Morphology Normal [facility] Blood specimen (specimen) 04/27/2016 5:36 AM EDT 04/27/2016 5:52 AM EDT Narrative Resulting Agency Comment Spec In Lab Tal Eagle MD HEMATOLOGY ORDERA BLES Performing Organization Address [facility] Co de Phone Number [facility] [place] [address] * Vancomycin, trough (04/27/2016 5:36 AM EDT) Vancomycin, Trough 9.1 mg/L [facility] Comment: Therapeutic range for complicated infections such as bacteremia, endocarditis, osteomyelitis, meningitis, and hospital-acquired pneumonia caused by S. aureus: 15-20 mg/L Therapeutic range for other indications: 10-15 mg/L Toxic: >25mg/L Reference: Vancomycin Therapeutic Monitoring: Review and Recommendations from the ASHP, IDSA and SIDP Task Force. ??Am J [employer]-S[employer]. 2009; 66:82-98 Blood specimen (specimen) 04/27/2016 5:36 AM EDT 04/27/2016 5:52 AM EDT Narrative Resulting Agency Comment Spec In Lab Tal Eagle MD CHEMISTRY ORDERAB LES Performing Organization Address City/[facility]/ZIP Co de Phone Number [facility] [place] [address] * Differential, Automated (04/27/2016 5:36 AM EDT) Neutrophil % 73.6 % [facility] Neutrophil Absolute 5.11 1.70 - 6.10 x10(3)/[facility] Lymph % 15.0 % [facility] Lymphocytes Abs 1.0 0.9 - 3.2 x10(3)/[facility] Monocyte % 9.7 % [facility] Monocyte Abs 0.7 0.3 - 0.9 x10(3)/[facility] Eos % 0.7 % [facility] Eosinophils Abs 0.0 0.0 - 0.4 x10(3)/[facility] Basophil % 0.6 % [facility] Baso Absolute 0.0 0.0 - 0.1 x10(3)/[facility] Immature Gran % 0.40 % [facility] Comment: Immature granulocytes(IG's)percentage and absolute count will include metamyelocytes, myelocytes, and promyelocytes. Blood smears from CBCs yielding IG's will be scanned manually for concordance. If this scan disagrees with the automated IG or if promyelocytes are noted, a manual differential will be performed. Immature Gran Absolute 0.03 0.00 - 0.04 x10(3)/[facility] Blood specimen (specimen) 04/27/2016 5:36 AM EDT 04/27/2016 5:52 AM EDT Narrative Resulting Agency Comment Spec In Lab Tal Eagle MD HEMATOLOGY ORDERA BLES [facility] [place] [address] * (ABNORMAL) Hemogram (04/27/2016 5:36 AM EDT) [facility] White Blood Cell 6.9 4.0 - 9.5 x10(3)/ L [facility] Red Blood Cell 4.57(L) 4.58 - 5.54 x10(6)/[facility] Hemoglobin 14.7 13.7 - 16.5 gm/dL [facility] Hematocrit 42.6 40.5 - 48.5 % [facility] Mean Cell Volume 93.2(H) 82.9 - 93.1 [facility] Mean Cell Hemoglobin 32.2(H) 27.5 - 32.1 pg [facility] Mean Cell Hemoglobin Concentration 34.5 32.0 - 35.7 gm/dL [facility] Platelet 146 145 - 357 x10(3)/[facility] RDW Standard Deviation 43.7 36.0 - 45.0 [facility] RDW coefficient of variation 12.8 11.4 - 13.8 % [facility] Mean Platelet Volume 9.1 7.6 - 12.9 [facility] NRBC% auto 0.0 % [facility] NRBC Absolute 0.000 0.000 - 0.000 x10(3)/[facility] Blood specimen (specimen) 04/27/2016 5:36 AM EDT 04/27/2016 5:52 AM EDT Narrative Resulting Agency Comment Spec In Lab Tal Eagle MD HEMATOLOGY ORDERA BLES [facility] [place] [address] * (ABNORMAL) Phosphorus (04/27/2016 5:36 AM EDT) [facility] Phosphorus 1.7(L) 2.5 - 4.5 mg/dL [facility] Blood specimen (specimen) 04/27/2016 5:36 AM EDT 04/27/2016 5:52 AM EDT Narrative Resulting Agency Comment Spec In Lab Tal Eagle MD CHEMISTRY ORDERAB LES Performing Organization Address [facility] Co de Phone Number [facility] [place] [address] * (ABNORMAL) Magnesium (04/27/2016 5:36 AM EDT) Magnesium 0.56(L) 0.69 - 1.07 mmol/L [facility] Blood specimen (specimen) 04/27/2016 5:36 AM EDT 04/27/2016 5:52 AM EDT Narrative Resulting Agency Comment Spec In Lab Tal Eagle MD CHEMISTRY ORDERAB LES Performing Organization Address [facility] de Phone Number [facility] [place] [address] * (ABNORMAL) BMP w/fasting Glucose (04/27/2016 5:36 AM EDT) Glucose Fasting 183(H) 65 - 99 mg/dL [facility] [...] of Diabetes Mellitus, Position Statement from the [place] [employer]. ??Diabetes Care, Volume 33, Supplement 1, Jul 2009 Blood Urea Nitrogen 13 10 - 20 mg/dL [facility] Creatinine 1.38 0.80 - 1.50 mg/dL [facility] Comment: Please note that the pediatric reference intervals supplied above were not validated at [facility]. Results from pediatric patients should be interpreted in conjunction to the patient's age, height and muscle mass. Sodium 136 135 - 145 mmol/L [facility] Potassium 3.3(L) 3.5 - 5.0 mmol/L [facility] Comment: Please note: ??Patients with WBC >100,000 may have falsely elevated Potassium levels. ??For accurate Potassium quantification in these patients send serum separator tube (gold top) for subsequent determinations. ??Contact the Clinical Chemistry Laboratory if there are any questions. Chloride 100 98 - 107 mmol/L [facility] Carbon Dioxide 22 22 - 31 mmol/L [facility] Anion Gap 14 5 - 15 mmol/L [facility] Calcium 8.3(L) 8.5 - 10.5 mg/dL [facility] Comment:result rechecked- Est Glomerular Filtration Rate 51(L) >=60 [facility] [...] the following links into your internet browser. [email or web address] Blood specimen (specimen) 04/27/2016 5:36 AM EDT 04/27/2016 5:52 AM EDT Narrative Resulting Agency Comment Spec In Lab Tal Eagle MD CHEMISTRY ORDERAB LES [facility] [place] [address] * Blood culture (04/26/2016 4:41 PM EDT) Blood Culture No growth at 5 days. [facility] Blood specimen (specimen) 04/26/2016 4:41 PM EDT 04/26/2016 5:04 PM EDT Comment:#2 R ENDERBRDRAW WHE N DRAWING BMP THIS AFTERNOON Narrative Resulting Agency Comment Spec In Lab Tal Eagle MD MICROBIOLOGY - BL OOD ORDERABLES Performing Organization Address [facility] Co de Phone Number [facility] [place] [address] * Blood culture (04/26/2016 4:41 PM EDT) Blood Culture No growth at 5 days. [facility] Blood specimen (specimen) 04/26/2016 4:41 PM EDT 04/26/2016 5:03 PM EDT Comment:#1 R ENDERBRDRAW WHE N DRAWING BMP THIS AFTERNOON Narrative Resulting Agency Comment Spec In Lab Tal Eagle MD MICROBIOLOGY - BL OOD ORDERABLES Performing Organization Address [facility] Co de Phone Number [facility] [place] [address] * (ABNORMAL) BMP w/fasting Glucose (04/26/2016 4:41 PM EDT) Glucose Fasting 121(H) 65 - 99 mg/dL [facility] [...] of Diabetes Mellitus, Position Statement from the [place] [employer]. ??Diabetes Care, Volume 33, Supplement 1, Jul 2009 Blood Urea Nitrogen 15 10 - 20 mg/dL [facility] Creatinine 1.51(H) 0.80 - 1.50 mg/dL [facility] Comment: Please note that the pediatric reference intervals supplied above were not validated at [facility]. Results from pediatric patients should be interpreted in conjunction to the patient's age, height and muscle mass. Sodium 138 135 - 145 mmol/L [facility] Potassium 3.6 3.5 - 5.0 mmol/L [facility] Comment: Please note: ??Patients with WBC >100,000 may have falsely elevated Potassium levels. ??For accurate Potassium quantification in these patients send serum separator tube (gold top) for subsequent determinations. ??Contact the Clinical Chemistry Laboratory if there are any questions. Chloride 97(L) 98 - 107 mmol/L [facility] Carbon Dioxide 26 22 - 31 mmol/L [facility] Anion Gap 15 5 - 15 mmol/L [facility] Calcium 9.0 8.5 - 10.5 mg/dL [facility] Est Glomerular Filtration Rate 46(L) >=60 [facility] [...] the following links into your internet browser. [email or web address] Blood specimen (specimen) 04/26/2016 4:41 PM EDT 04/26/2016 4:46 PM EDT Narrative Resulting Agency Comment Spec In Lab Tal Eagle MD CHEMISTRY ORDERAB LES [facility] [place] [address] * Differential, Automated (04/26/2016 6:21 AM EDT) Pathologist [facility] Neutrophil % 81.3 % [facility] Neutrophil Absolute 5.60 1.70 - 6.10 x10(3)/[facility] Lymph % 12.8 % [facility] Lymphocytes Abs 0.9 0.9 - 3.2 x10(3)/[facility] Monocyte % 5.2 % [facility] Monocyte Abs 0.4 0.3 - 0.9 x10(3)/[facility] Eos % 0.0 % [facility] Eosinophils Abs 0.0 0.0 - 0.4 x10(3)/[facility] Basophil % 0.4 % [facility] Baso Absolute 0.0 0.0 - 0.1 x10(3)/[facility] Immature Gran % 0.30 % [facility] Comment: Immature granulocytes(IG's)percentage and absolute count will include metamyelocytes, myelocytes, and promyelocytes. Blood smears from CBCs yielding IG's will be scanned manually for concordance. If this scan disagrees with the automated IG or if promyelocytes are noted, a manual differential will be performed. Immature Gran Absolute 0.02 0.00 - 0.04 x10(3)/[facility] Blood specimen (specimen) 04/26/2016 6:21 AM EDT 04/26/2016 6:32 AM EDT Narrative Resulting Agency Comment Spec In Lab Tal Eagle MD HEMATOLOGY ORDERA BLES [facility] [place] [address] * (ABNORMAL) Hemogram (04/26/2016 6:21 AM EDT) Pathologist [facility] White Blood Cell 6.9 4.0 - 9.5 x10(3)/mc L [facility] Red Blood Cell 4.82 4.58 - 5.54 x10(6)/ L [facility] Hemoglobin 15.5 13.7 - 16.5 gm/dL [facility] Hematocrit 43.8 40.5 - 48.5 % [facility] Mean Cell Volume 90.9 82.9 - 93.1 fL [facility] Mean Cell Hemoglobin 32.2(H) 27.5 - 32.1 pg [facility] Mean Cell Hemoglobin Concentration 35.4 32.0 - 35.7 gm/dL [facility] Platelet 177 145 - 357 x10(3)/[facility] RDW Standard Deviation 41.2 36.0 - 45.0 [facility] RDW coefficient of variation 12.5 11.4 - 13.8 % [facility] Mean Platelet Volume 9.2 7.6 - 12.9 [facility] NRBC% auto 0.0 % [facility] NRBC Absolute 0.000 0.000 - 0.000 x10(3)/[facility] Blood specimen (specimen) 04/26/2016 6:21 AM EDT 04/26/2016 6:32 AM EDT Narrative Resulting Agency Comment Spec In Lab Tal Eagle MD HEMATOLOGY ORDERA BLES Performing Organization Address City/State/[facility] Co de Phone Number [facility] [place] [address] * (ABNORMAL) Phosphorus (04/26/2016 6:21 AM EDT) Phosphorus 2.1(L) 2.5 - 4.5 mg/dL [facility] Blood specimen (specimen) 04/26/2016 6:21 AM EDT 04/26/2016 6:32 AM EDT Narrative Resulting Agency Comment Spec In Lab Tal Eagle MD CHEMISTRY ORDERAB LES Performing Organization Address [facility]/ZIP Co de Phone Number [facility] [place] [address] * (ABNORMAL) Magnesium (04/26/2016 6:21 AM EDT) Pathologist [facility] Magnesium 0.45(L) 0.69 - 1.07 mmol/L [facility] Blood specimen (specimen) 04/26/2016 6:21 AM EDT 04/26/2016 6:32 AM EDT Narrative Resulting Agency Comment Spec In Lab Tal Eagle MD CHEMISTRY ORDERAB LES Performing Organization Address [facility] Co de Phone Number [facility] [place] [address] * (ABNORMAL) BMP w/fasting Glucose (04/26/2016 6:21 AM EDT) Pathologist [facility] Glucose Fasting 143(H) 65 - 99 mg/dL [facility] [...] of Diabetes Mellitus, Position Statement from the [place] [employer]. ??Diabetes Care, Volume 33, Supplement 1, Jul 2009 Blood Urea Nitrogen 13 10 - 20 mg/dL [facility] Creatinine 1.30 0.80 - 1.50 mg/dL [facility] Comment: Please note that the pediatric reference intervals supplied above were not validated at [facility]. Results from pediatric patients should be interpreted in conjunction to the patient's age, height and muscle mass. Sodium 136 135 - 145 mmol/L [facility] Potassium 3.3(L) 3.5 - 5.0 mmol/L [facility] Comment: Please note: ??Patients with WBC >100,000 may have falsely elevated Potassium levels. ??For accurate Potassium quantification in these patients send serum separator tube (gold top) for subsequent determinations. ??Contact the Clinical Chemistry Laboratory if there are any questions. Chloride 98 98 - 107 mmol/L [facility] Carbon Dioxide 23 22 - 31 mmol/L [facility] Anion Gap 15 5 - 15 mmol/L [facility] Calcium 8.2(L) 8.5 - 10.5 mg/dL [facility] Comment:result rechecked-llu Est Glomerular Filtration Rate 55(L) >=60 [facility] [...] the following links into your internet browser. [email or web address] Blood specimen (specimen) 04/26/2016 6:21 AM EDT 04/26/2016 6:32 AM EDT Narrative Resulting Agency Comment Spec In Lab Tal Eagle MD CHEMISTRY ORDERAB LES [facility] [place] [address] * (ABNORMAL) Urine culture Nephrostomy Urine (04/25/2016 10:25 PM EDT) Urine Culture 1,000-9,000 cfu/ml Coagulase Negative Staph, not S. saprophyticus Susceptibility testing not routinely performed for Coagulase Negative Staphylococcus species and other Gram Positive organisms from urine. (A) [facility] Organism Coagulase Negative Staph, not S. saprophyticus(A) [facility] Urine specimen from nephrostomy tube (specimen) 04/25/2016 10:25 PM EDT 04/25/2016 11:03 PM EDT Comment:PLEASE OBTAIN FROM I NDWELLING NEPHROSTOMY TUBE Narrative Resulting Agency Comment Spec In Lab Tal Eagle MD MICROBIOLOGY - [facility] ORDERABLES [facility] [place] [address] * XR Chest PA & Lateral (Generic) (04/25/2016 8:04 PM EDT) Anatomical Region Laterality Modality Chest N/A Digital Radiogra phy Impressions 04/25/2016 8:23 PM EDT No radiographic evidence of active cardiopulmonary disease. Narrative 04/25/2016 8:23 PM EDT EXAMINATION: XR CHEST PA AND LATERAL (GENERIC) CLINICAL HISTORY: fevers TECHNIQUE: Frontal and lateral radiographs of the chest COMPARISON: 01/30/2016 FINDINGS: Cardiomediastinal contours are within normal limits. Lungs are clear. There are no pleural effusions. Bony and soft tissue structures are unremarkable. Procedure Note Shanon Brady MD - 04/25/2016 EXAMINATION: XR CHEST PA AND LATERAL (GENERIC) CLINICAL HISTORY: fevers TECHNIQUE: Frontal and lateral radiographs of the chest COMPARISON: 01/30/2016 FINDINGS: Cardiomediastinal contours are within normal limits. Lungs are clear. There are no pleural effusions. Bony and soft tissue structures are unremarkable. IMPRESSION No radiographic evidence of active cardiopulmonary disease. 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 Kidney transplant infection Complications of transplanted kidney UTI (urinary tract infection) Urinary tract infection, site not specified Bacteremia due to coagulase-negative Staphylococcus Bacteremia Ureteral stricture Stricture or kinking of ureter documented in this encounter Administered Medications Inactive Administered Medications - up to 3 most recent administrations Medication Order MAR Action Action Date Dose Rate Site acetaminophen (TYLENOL) tablet 1,000 mg 1,000 mg, Oral, EVERY 6 HOURS PRN, Starting on Thu04/25/16 at 1735, Until 04/26/16 at 1138, Pain, Maximum dose of acetaminophen is 4000 mg from all sources in 24 hours., Routine Given 04/26/2016 11:35 AM EDT 1,000 mg Given 04/26/2016 5:02 AM EDT 1,000 mg acetaminophen (TYLENOL) tablet 1,000 mg 1,000 mg, Oral, EVERY 8 HOURS, First dose (after last modification) on 04/26/16 at 2200, Until Discontinued, Maximum dose of acetaminophen is 4000 mg from all sources in 24 hours., Routine Given 04/30/2016 8:12 AM EDT 1,000 mg Given 04/29/2016 6:02 PM EDT 1,000 mg Given 04/29/2016 9:29 AM EDT 1,000 mg calciTRIol (ROCALTROL) capsule 0.5 mcg 0.5 mcg, Oral, DAILY, First dose on 04/26/16 at 0900, Until Discontinued, Routine Given 04/30/2016 8:11 AM EDT 0.5 mcg Given 04/29/2016 8:04 AM EDT 0.5 mcg Given 04/28/2016 8:04 AM EDT 0.5 mcg calcium carbonate (TUMS) chewable tablet 500 mg 500 mg, Oral, 3 TIMES DAILY, First dose on 04/27/16 at 1115, Until Discontinued, Please dose at least 2 hours following meals. Thanks, Routine Given 04/30/2016 2:16 PM EDT 500 mg Given 04/30/2016 8:11 AM EDT 500 mg Given 04/29/2016 9:02 PM EDT 500 mg DAPTOmycin (CUBICIN) 775 mg in sodium chloride 0.9% 65.5 mL 775 mg, Intravenous, at 131 mL/hr, ONCE, 1 dose, On Thu04/30/16 at 1345, STAT Given 04/30/2016 1:45 PM EDT 775 mg 131 mL/hr DILTiazem (DILTIAZEM CD) ER capsule 120 mg 120 mg, Oral, DAILY, First dose on Thu04/26/16 at 0900, Until Discontinued, DO NOT CRUSH OR OPEN, Routine Given 04/30/2016 8:12 AM EDT 120 mg Given 04/29/2016 8:04 AM EDT 120 mg Given 04/28/2016 8:04 AM EDT 120 mg fentaNYL 50 mcg/mL multi-dose injection 25-50 mcg, Intravenous, EVERY 5 MIN PRN, Starting on Thu04/30/16 at 0950, Until Thu04/30/16 at 1142, Pain, per unit protocol, - Start dose 50 mcg (reduce dose to 25 mcg if history of sedation sensitivity). - Titration dose 25-50 mcg IV, (based on patient response) every 3 minutes PRN, to maintain procedural pain less than 2 per pain Scale. Maximum dose: 50 mcg/dose, 250 mcg/hour For use in Interventional Radiology (IR) only for procedural sedation with direct provider supervision and verbal order., Angio/IR (Intra-Procedure), Routine Given 04/30/2016 11:00 AM EDT 25 mcg Given 04/30/2016 10:25 AM EDT 50 mcg Given 04/30/2016 10:20 AM EDT 25 mcg heparin (porcine) subcutaneous injection 5,000 Units 5,000 Units, Subcutaneous, EVERY 8 HOURS SCHEDULED, First dose on Thu04/25/16 at 2200, Until Discontinued, Routine Given 04/27/2016 1:59 PM EDT 5,000 Unit s Given 04/27/2016 6:25 AM EDT 5,000 Units Given 04/26/2016 9:12 PM EDT 5,000 Units iohexol (OMNIPAQUE) 350 mg/mL solution 5,250 mg 5,250 mg (15 mL), Other, ONCE PRN, 1 dose, Starting on Thu04/30/16 at 1124, Until Thu04/30/16 at 1125, Per Protocol, Warning Vesicant/Irritant Medication , Routine Given 04/30/2016 11:25 AM EDT 15 mLs levothyroxine (SYNTHROID) tablet 100 mcg 100 mcg, Oral, EVERY MORNING, First dose on Thu04/26/16 at 0600, Until Discontinued, Routine Given 04/30/2016 6:08 AM EDT 100 mcg Given 04/29/2016 5:40 AM EDT 100 mcg Given 04/28/2016 5:33 AM EDT 100 mcg lidocaine (XYLOCAINE) 10 mg/mL (1 %) injection 10 mg 10 mg, Subcutaneous, ONCE, 1 dose, On Thu04/30/16 at 1015, For use in Interventional Radiology (IR) only for procedure with direct provider supervision and verbal order., Angio/IR (Intra-Procedure), Routine Given 04/30/2016 11:07 AM EDT 10 mg magnesium sulfate 1g in dextrose 5% 100mL 1 g, Intravenous, ONCE, 1 dose, On 04/26/16 at 0900, Administer over 60 Minutes Given 04/26/2016 9:13 AM EDT 1 g 100 mL/hr magnesium sulfate 1g in dextrose 5% 100mL 1 g, Intravenous, ONCE, 1 dose, On Thu04/28/16 at 1100, Administer over 60 Minutes Given 04/28/2016 11:01 AM EDT 1 g 100 mL/hr magnesium sulfate 2 g in sterile water 50 mL 2 g, Intravenous, ONCE, 1 dose, On Thu04/27/16 at 0900, Administer over 120 Minutes Given 04/27/2016 10:00 AM EDT 2 g 25 mL/hr magnesium sulfate 2 g in sterile water 50 mL 2 g, Intravenous, ONCE, 1 dose, On Tu04/29/16 at 0900, Administer over 120 Minutes Given 04/29/2016 9:29 AM EDT 2 g 25 mL/hr magnesium sulfate 2 g in sterile water 50 mL 2 g, Intravenous, ONCE, 1 dose, On Thu04/30/16 at 0730, Administer over 120 Minutes Given 04/30/2016 7:46 AM EDT 2 g 25 mL/hr midazolam (PF) (VERSED) 1 mg/mL multi-dose injection 0.5-1 mg 0.5-1 mg, Intravenous, EVERY 3 MIN PRN, Starting on Thu04/30/16 at 0950, Until Thu04/30/16 at 1142, Sleep, - Start dose; 1 mg (Reduce dose to 0.5 mg if history of sedation sensitivity). - Titration dose: 0.5 mg - 1 mg (based on patient response) every 3 minutes PRN to obtain RASS score of -3. Maximum dose: 1 mg per dose, 5 mg/hour. For use in Interventional Radiology (IR) only for procedural sedation with direct provider supervision and verbal order., Angio/IR (Intra-Procedure), Routine Given 04/30/2016 10:25 AM EDT 1 mg Given 04/30/2016 10:20 AM EDT 0.5 mg mycophenolate (CELLCEPT) capsule 250 mg 250 mg, Oral, 2 TIMES DAILY, First dose on Thu04/25/16 at 2100, Until Discontinued, DO NOT CRUSH OR OPEN, Routine Given 04/30/2016 8:12 AM EDT 250 mg Given 04/29/2016 9:01 PM EDT 250 mg Given 04/29/2016 8:04 AM EDT 250 mg ondansetron (ZOFRAN) injection 4 mg 4 mg, Intravenous, EVERY 8 HOURS PRN, Starting on Thu04/25/16 at 1735, Until Thu04/30/16 at 1923, Nausea, May repeat times one in 30 minutes if ineffective. If multiple antiemetics are ordered, give ondansetron first. ondansetron (ZOFRAN) tablet 4 mg 4 mg, Oral, EVERY 8 HOURS PRN, Starting on Thu04/25/16 at 1735, Until Thu04/30/16 at 1923, Nausea, Vomiting, If multiple antiemetics are ordered, use ondansetron first. PO Preferred. If patient unable to take PO, may give IV if ordered. May repeat times one in 45 minutes if ineffective. If unable to take PO, may give IV., Routine pantoprazole (PROTONIX) tablet 40 mg 40 mg, Oral, DAILY, First dose on Thu04/25/16 at 1800, Until Discontinued, DO NOT CRUSH OR OPEN, Routine Given 04/30/2016 8:11 AM EDT 40 mg Given 04/29/2016 8:04 AM EDT 40 mg Given 04/28/2016 8:03 AM EDT 40 mg piperacillin-tazobactam (ZOSYN) 3.375 g in dextrose 5% 50 mL 3.375 g, Intravenous, EVERY 8 HOURS, First dose on Thu04/25/16 at 2200, Until Discontinued, Administer over 4 Hours, Warning Vesicant/Irritant Medication , Indication for (Active or Suspected): Urinary Tract/Pyelonephritis Given 04/27/2016 1:59 PM EDT 3.375 g 12.5 mL/hr Given 04/27/2016 6:25 AM EDT 3.375 g 12.5 mL/hr Given 04/26/2016 9:10 PM EDT 3.375 g 12.5 mL/hr potassium chloride (K-DUR/KLOR-CON) extended release tablet 10 mEq 10 mEq, Oral, 2 TIMES DAILY, 2 doses, First dose on 04/26/16 at 2100, Last dose on Thu04/27/16 at 0900, Routine Given 04/26/2016 9:11 PM EDT 10 mEq potassium chloride (K-DUR/KLOR-CON) extended release tablet 20 mEq 20 mEq, Oral, EVERY 4 HOURS, 3 doses, First dose on Thu04/27/16 at 0800, Last dose on Thu04/27/16 at 1600, 20 mEq tablet may be dissolved in water for administration, Routine Given 04/27/2016 3:10 PM EDT 20 mEq Given 04/27/2016 11:51 AM EDT 20 mEq Given 04/27/2016 8:51 AM EDT 20 mEq potassium chloride (K-DUR/KLOR-CON) extended release tablet 40 mEq 40 mEq, Oral, ONCE, 1 dose, On Thu04/28/16 at 0945, 20 mEq tablet may be dissolved in water for administration, Routine Given 04/28/2016 9:40 AM EDT 40 mEq potassium chloride (K-DUR/KLOR-CON) extended release tablet 40 mEq 40 mEq, Oral, ONCE, 1 dose, On Thu04/29/16 at 1330, 20 mEq tablet may be dissolved in water for administration, Routine Given 04/29/2016 1:28 PM EDT 40 mEq potassium chloride (K-DUR/KLOR-CON) extended release tablet 40 mEq 40 mEq, Oral, ONCE, 1 dose, On Thu04/30/16 at 0730, 20 mEq tablet may be dissolved in water for administration, Routine Given 04/30/2016 7:46 AM EDT 40 mEq potassium chloride 10 mEq in 100 mL 10 mEq, Intravenous, EVERY 2 HOURS, 3 doses, First dose on Thu04/26/16 at 1130, Last dose on Thu04/26/16 at 1530, Administer over 60 Minutes, Warning Vesicant/Irritant Medication Given 04/26/2016 12:10 PM EDT 10 mEq 100 mL/hr potassium phosphate (monobasic) (K-PHOS) tablet 1,000 mg 1,000 mg, Oral, 2 TIMES DAILY, First dose on Thu04/25/16 at 2100, Until Discontinued, Dissolve tablets in 6-8 oz of water; for best results, soak tablets in water for 2-5 minutes, then stir and give to patient., Routine Given 04/30/2016 8:11 AM EDT 1,000 mg Given 04/29/2016 9:02 PM EDT 1,000 mg Given 04/29/2016 8:04 AM EDT 1,000 mg sodium chloride 0.9 % flush 5 mL 5 mL, Intravenous, 2 TIMES DAILY, First dose on Thu04/25/16 at 2100, Until Discontinued, Routine Given 04/30/2016 8:12 AM EDT 5 mLs Given 04/29/2016 9:03 PM EDT 5 mLs Given 04/29/2016 8:06 AM EDT 5 mLs sodium chloride 0.9% 1,000 mL IV bolus Intravenous, ONCE, 1 dose, On Thu04/25/16 at 1815 Given 04/25/2016 6:49 PM EDT sodium chloride 0.9% infusion 100 mL/hr, Intravenous, CONTINUOUS, Starting on Thu04/25/16 at 1800, Until Thu04/28/16 at 0917 New Bag 04/27/2016 10:55 PM EDT 100 mL/hr 100 mL/hr Rate/Dose Change 04/27/2016 8:56 AM EDT 100 mL/hr 100 mL/ hr New Bag 04/26/2016 1:09 PM EDT 150 mL/hr 150 mL/hr sodium chloride 0.9% infusion 100 mL/hr, Intravenous, CONTINUOUS, Starting on Thu04/29/16 at 1800, Until Thu04/30/16 at 1217 New Bag 04/29/2016 6:03 PM EDT 100 mL/hr 100 mL/hr sodium phosphate 15 mMol in sodium chloride 0.9% 150 mL 15 mmol, Intravenous, ONCE, 1 dose, On Thu04/26/16 at 1200, Administer over 4 Hours, Administer over 4-6 hours Given 04/26/2016 12:00 PM EDT 15 mmol 37.5 mL/hr sodium phosphate 15 mMol in sodium chloride 0.9% 150 mL 15 mmol, Intravenous, EVERY 4 HOURS, 3 doses, First dose (after last reorder) on Thu04/27/16 at 0900, Last dose on Thu04/27/16 at 1700, Administer over 4 Hours, Administer over 4-6 hours Given 04/27/2016 5:00 PM EDT 15 mmol 37.5 mL/hr Given 04/27/2016 1:00 PM EDT 15 mmol 37.5 mL/hr Given 04/27/2016 9:00 AM EDT 15 mmol 37.5 mL/hr tacrolimus (PROGRAF) capsule 1 mg 1 mg, Oral, 2 TIMES DAILY, First dose on Thu04/25/16 at 2100, Until Discontinued, Routine Given 04/30/2016 8:11 AM EDT 1 mg Given 04/29/2016 9:02 PM EDT 1 mg Given 04/29/2016 8:04 AM EDT 1 mg tamsulosin (FLOMAX) ER capsule 0.4 mg 0.4 mg, Oral, NIGHTLY, First dose on Thu04/25/16 at 2100, Until Discontinued, DO NOT CRUSH OR OPEN, Routine Given 04/29/2016 9:02 PM EDT 0.4 mg Given 04/28/2016 8:39 PM EDT 0.4 mg Given 04/27/2016 8:08 PM EDT 0.4 mg valGANciclovir (VALCYTE) tablet 450 mg 450 mg, Oral, 2 TIMES DAILY, First dose on Thu04/25/16 at 2100, Until Discontinued, Routine, Indication for (Active or Suspected): Prophylaxis Given 04/30/2016 8:11 AM EDT 450 mg Given 04/29/2016 9:02 PM EDT 450 mg Given 04/29/2016 8:04 AM EDT 450 mg vancomycin 1 g in 0.9 % sodium chloride 200 mL 1,000 mg (1 g), Intravenous, EVERY 12 HOURS SCHEDULED (2 times per day), 4 doses, First dose on Thu04/25/16 at 1830, Last dose on Thu04/27/16 at 0600, Maximum infusion rate is 1 gram/hour. If flushing of the face, neck, upper body, arms, and/or back occurs decrease infusion rate by 50% to reduce the severity of symptoms. This medication may have an associated drug lab level. Please see MAR for scheduled level. Warning Vesicant/Irritant Medication , STAT Given 04/27/2016 6:25 AM EDT 1,000 mg Given 04/26/2016 5:52 PM EDT 1,000 mg Given 04/26/2016 5:02 AM EDT 1,000 mg vancomycin 1.25 g sodium in chloride 0.9% 250 mL 1,250 mg, Intravenous, at 200 mL/hr, EVERY 12 HOURS, First dose on 04/27/16 at 1830, Until Discontinued, Maximum infusion rate is 1 gram/hour. If flushing of the face, neck, upper body, arms, and/or back occurs decrease infusion rate by 50% to reduce the severity of symptoms. This medication may have an associated drug lab level. Please see MAR for scheduled level. Warning Vesicant/Irritant Medication , Routine Given 04/30/2016 6:11 AM EDT 1,250 mg 200 mL/hr Given 04/29/2016 6:30 PM EDT 1,250 mg 200 mL/hr Given 04/29/2016 5:40 AM EDT 1,250 mg 200 mL/hr documented in this encounter Active and Recently Administered Medications Times are shown in EDT. Scheduled Medication Order 04/28/2016 04/29/2016 04/30/2016 acetaminophen (TYLENOL) tablet 1,000 mg 1,000 mg, Oral, EVERY 8 HOURS, First dose (after last modification) on 04/26/16 at 2200, Until Discontinued, Maximum dose of acetaminophen is 4000 mg from all sources in 24 hours., Routine 0231 (Given - Provider: Polina Delgado RN)0940 (Given - Provider: Ethel Flores RN)1802 (Given - Provider: Ethel Flores RN) 0200 (Not Given - Provider: oPlina Delgado RN - Reason: Patient/family refused - Comment: Pt requested that I do not wake him up for tylenol)0929 (Given - Provider: Ryan Fuchs RN)180 (Given - Provider: Ryan Fuchs RN) 0812 (Given - Provider: Brandee Akins RN - Comment: pt requested not to be awakened for tylenol.)1000 (Not Given - Provider: Brandee Akins RN - Reason: Patient/family refused) calciTRIol (ROCALTROL) capsule 0.5 mcg 0.5 mcg, Oral, DAILY, First dose on Thu04/26/16 at 0900, Until Discontinued, Routine 0804 (Given - Provider: Bernarda Pedroza RN) 0804 (Given - Provider: Bernarda Pedroza, JADEN) 0811 (Given - Provider: Brandee Akins RN) calcium carbonate (TUMS) chewable tablet 500 mg 500 mg, Oral, 3 TIMES DAILY, First dose on Thu04/27/16 at 1115, Until Discontinued, Please dose at least 2 hours following meals. Thanks, Routine 0804 (Given - Provider: Bernarda Pedroza RN)1403 (Given - Provider: Ethel Flores, JADEN)2039 (Given - Provider: Polina Delgado RN) 0803 (Given - Provider: Bernarda Pedroza RN)1522 (Given - Provider: Ryan Fuchs RN)2102 (Given - Provider: Ethel Flores, JADEN) 0811 (Given - Provider: Brandee Akins, JADEN)1416 (Given - Provider: Brandee Akins, JADEN) DAPTOmycin (CUBICIN) 775 mg in sodium chloride 0.9% 65.5 mL (COMPLETED) 775 mg, Intravenous, at 131 mL/hr, ONCE, 1 dose, On Thu04/30/16 at 1345, STAT 1345 (Given - Provider: Brandee Akins, JADEN) DILTiazem (DILTIAZEM CD) ER capsule 120 mg 120 mg, Oral, DAILY, First dose on Thu04/26/16 at 0900, Until Discontinued, DO NOT CRUSH OR OPEN, Routine 0804 (Given - Provider: Bernarda Pedroza RN) 0804 (Given - Provider: Bernarda Pedroza RN) 0812 (Given - Provider: Brandee Akins RN) heparin (porcine) subcutaneous injection 5,000 Units 5,000 Units, Subcutaneous, EVERY 8 HOURS SCHEDULED, First dose on Thu04/25/16 at 2200, Until Discontinued, Routine 0600 (Not Given - Provider: Polina Delgado RN - Reason: Patient/family refused)1403 (Not Given - Provider: Ethel Flores RN - Reason: Patient/family refused)2200 (Not Given - Provider: Polina Delgado RN - Reason: Patient/family refused) 0600 (Not Given - Provider: Polina Delgado RN - Reason: Patient/family refused)1327 (Not Given - Provider: Ryan Fuchs RN - Reason: Patient/family refused)2106 (Not Given - Provider: Ethel Flores RN - Reason: Patient/family refused) 0611 (Not Given - Provider: Ethel Flores RN - Reason: Patient/family refused)1400 (Not Given - Provider: Brandee Akins RN - Reason: Patient/family refused) levothyroxine (SYNTHROID) tablet 100 mcg 100 mcg, Oral, EVERY MORNING, First dose on 04/26/16 at 0600, Until Discontinued, Routine 0533 (Given - Provider: Polina Delgado RN) 0540 (Given - Provider: Polina Delgado RN) 0608 (Given - Provider: Ethel Flores RN) lidocaine (XYLOCAINE) 10 mg/mL (1 %) injection 10 mg (COMPLETED) 10 mg, Subcutaneous, ONCE, 1 dose, On Thu04/30/16 at 1015, For use in Interventional Radiology (IR) only for procedure with direct provider supervision and verbal order., Angio/IR (Intra-Procedure), Routine 1107 (Given - Provider: Hebert Moreira) magnesium sulfate 1g in dextrose 5% 100mL (COMPLETED) 1 g, Intravenous, ONCE, 1 dose, On Thu04/28/16 at 1100, Administer over 60 Minutes 1101 (Given - Provider: Ethel Flores RN) magnesium sulfate 2 g in sterile water 50 mL (COMPLETED) 2 g, Intravenous, ONCE, 1 dose, On Thu04/29/16 at 0900, Administer over 120 Minutes 0929 (Given - Provider: Ryan Fuchs RN) magnesium sulfate 2 g in sterile water 50 mL (COMPLETED) 2 g, Intravenous, ONCE, 1 dose, On Thu04/30/16 at 0730, Administer over 120 Minutes 0746 (Given - Provider: Brandee Akins RN) mycophenolate (CELLCEPT) capsule 250 mg 250 mg, Oral, 2 TIMES DAILY, First dose on Thu04/25/16 at 2100, Until Discontinued, DO NOT CRUSH OR OPEN, Routine 08 (Given - Provider: Bernarda Pedroza RN)2038 (Given - Provider: Polina Delgado RN) 803 (Given - Provider: Bernarda Pedroza RN)2100 (Given - Provider: Ethel Flores RN) 811 (Given - Provider: Brandee Akins RN) pantoprazole (PROTONIX) tablet 40 mg 40 mg, Oral, DAILY, First dose on Thu04/25/16 at 1800, Until Discontinued, DO NOT CRUSH OR OPEN, Routine 802 (Given - Provider: Bernarda Pedroza RN) 803 (Given - Provider: Bernarda Pedroza RN) 08 (Given - Provider: Brandee Akins RN) potassium chloride (K-DUR/KLOR-CON) extended release tablet 40 mEq (COMPLETED) 40 mEq, Oral, ONCE, 1 dose, On Thu04/28/16 at 0945, 20 mEq tablet may be dissolved in water for administration, Routine 0940 (Given - Provider: Ethel Flores RN) potassium chloride (K-DUR/KLOR-CON) extended release tablet 40 mEq (COMPLETED) 40 mEq, Oral, ONCE, 1 dose, On Thu04/29/16 at 1330, 20 mEq tablet may be dissolved in water for administration, Routine 1328 (Given - Provider: Ryan Fuchs RN) potassium chloride (K-DUR/KLOR-CON) extended release tablet 40 mEq (COMPLETED) 40 mEq, Oral, ONCE, 1 dose, On Thu04/30/16 at 0730, 20 mEq tablet may be dissolved in water for administration, Routine 0746 (Given - Provider: Brandee Akins RN) potassium phosphate (monobasic) (K-PHOS) tablet 1,000 mg 1,000 mg, Oral, 2 TIMES DAILY, First dose on Thu04/25/16 at 2100, Until Discontinued, Dissolve tablets in 6-8 oz of water; for best results, soak tablets in water for 2-5 minutes, then stir and give to patient., Routine 802 (Given - Provider: Bernarda Pedroza RN)2038 (Given - Provider: Polina Delgado, JADEN) 803 (Given - Provider: Bernarda Perdoza RN)2101 (Given - Provider: Ethel Flores, JADEN) 0811 (Given - Provider: Brandee Akins RN) sodium chloride 0.9 % flush 5 mL 5 mL, Intravenous, 2 TIMES DAILY, First dose on Thu04/25/16 at 2100, Until Discontinued, Routine 806 (Given - Provider: Bernarda Pedroza RN)2099 (Given - Provider: Polina Delgado RN) 805 (Given - Provider: Bernarda Pedroza RN)2102 (Given - Provider: Ethel Flores, JADEN) 811 (Given - Provider: Brandee Akins RN) tacrolimus (PROGRAF) capsule 1 mg 1 mg, Oral, 2 TIMES DAILY, First dose on Thu04/25/16 at 2100, Until Discontinued, Routine 802 (Given - Provider: Bernarda Pedroza RN)2038 (Given - Provider: Polina Delgado RN) 08 (Given - Provider: Bernarda Pedroza RN)2101 (Given - Provider: Ethel Flores, JADEN) 0811 (Given - Provider: Brandee Akins, JADEN) tamsulosin (FLOMAX) ER capsule 0.4 mg 0.4 mg, Oral, NIGHTLY, First dose on Thu04/25/16 at 2100, Until Discontinued, DO NOT CRUSH OR OPEN, Routine 2038 (Given - Provider: Polina Delgado RN) 2101 (Given - Provider: Ethel Flores, JADEN) valGANciclovir (VALCYTE) tablet 450 mg 450 mg, Oral, 2 TIMES DAILY, First dose on Thu04/25/16 at 2100, Until Discontinued, Routine, Indication for (Active or Suspected): Prophylaxis 802 (Given - Provider: Bernarda Pedroza RN)2038 (Given - Provider: Polina Delgado RN) 0804 (Given - Provider: Bernarda Pedroza RN)210 (Given - Provider: Ethel Flores, JADEN) 0811 (Given - Provider: Brandee Akins RN) vancomycin 1.25 g sodium in chloride 0.9% 250 mL (CANCELED)(Linked Group 1) 1,250 mg, Intravenous, at 200 mL/hr, EVERY 12 HOURS, First dose on Thu04/27/16 at 1830, Until Discontinued, Maximum infusion rate is 1 gram/hour. If flushing of the face, neck, upper body, arms, and/or back occurs decrease infusion rate by 50% to reduce the severity of symptoms. This medication may have an associated drug lab level. Please see MAR for scheduled level. Warning Vesicant/Irritant Medication , Routine 0535 (Given - Provider: Polina Delgado RN)1804 (Given - Provider: Ethel Flores RN) 0540 (Given - Provider: Polina Delgado RN)1830 (Given - Provider: Ryan Fuchs RN) 0611 (Given - Provider: Ethel Flores RN) Vancomycin Level - MAR Order Reminder NOT APPLICABLE, ONCE, On Thu04/29/16 at 1800, 1 dose, This alert will be scheduled by a pharmacist after order placement. This order is a reminder to nursing staff to release and draw the PRN drug level at the specified time. It may be necessary to contact phlebotomy 60 minutes prior to the scheduled due time to assure a timely blood draw. 1800 (Lab Order Released - Provider: Ryan Fuchs RN) Continuous Medication Order 04/28/2016 04/29/2016 04/30/2016 sodium chloride 0.9% infusion (CANCELED) 100 mL/hr, Intravenous, CONTINUOUS, Starting on Thu04/29/16 at 1800, Until Thu04/30/16 at 1217 1803 (New Bag - Provider: Ryan Fuchs RN) PRN Medication Order 04/28/2016 04/29/2016 04/30/2016 fentaNYL 50 mcg/mL multi-dose injection (CANCELED) 25-50 mcg, Intravenous, EVERY 5 MIN PRN, Starting on Thu04/30/16 at 0950, Until Thu04/30/16 at 1142, Pain, per unit protocol, - Start dose 50 mcg (reduce dose to 25 mcg if history of sedation sensitivity). - Titration dose 25-50 mcg IV, (based on patient response) every 3 minutes PRN, to maintain procedural pain less than 2 per pain Scale. Maximum dose: 50 mcg/dose, 250 mcg/hour For use in Interventional Radiology (IR) only for procedural sedation with direct provider supervision and verbal order., Angio/IR (Intra-Procedure), Routine 1020 (Given - Provid er: Marisela Miller, RN)1025 (Given - Provider: Marisela Miller, RN)1100 (Given - Provider: Marisela Miller, JADEN) iohexol (OMNIPAQUE) 350 mg/mL solution 5,250 mg (COMPLETED) 5,250 mg (15 mL), Other, ONCE PRN, 1 dose, Starting on Thu04/30/16 at 1124, Until Thu04/30/16 at 1125, Per Protocol, Warning Vesicant/Irritant Medication , Routine 1125 (Given - Provid er: Jihan Farley) lidocaine (XYLOCAINE) 10 mg/mL (1 %) injection 3 mg 3 mg (0.3 mL), Subcutaneous, ONCE PRN, 1 dose, Starting on Thu04/25/16 at 1735, Until Thu04/30/16 at 1923, for discomfort with PIV insertion, Routine midazolam (PF) (VERSED) 1 mg/mL multi-dose injection 0.5-1 mg (CANCELED) 0.5-1 mg, Intravenous, EVERY 3 MIN PRN, Starting on Thu04/30/16 at 0950, Until Thu04/30/16 at 1142, Sleep, - Start dose; 1 mg (Reduce dose to 0.5 mg if history of sedation sensitivity). - Titration dose: 0.5 mg - 1 mg (based on patient response) every 3 minutes PRN to obtain RASS score of -3. Maximum dose: 1 mg per dose, 5 mg/hour. For use in Interventional Radiology (IR) only for procedural sedation with direct provider supervision and verbal order., Angio/IR (Intra-Procedure), Routine 1020 (Given - Provid er: Marisela Miller, JADEN)1025 (Given - Provider: Marisela Miller RN) ondansetron (ZOFRAN) injection 4 mg(Linked Group 2) 4 mg, Intravenous, EVERY 8 HOURS PRN, Starting on Thu04/25/16 at 1735, Until Thu04/30/16 at 1923, Nausea, May repeat times one in 30 minutes if ineffective. If multiple antiemetics are ordered, give ondansetron first. ondansetron (ZOFRAN) tablet 4 mg(Linked Group 2) 4 mg, Oral, EVERY 8 HOURS PRN, Starting on Thu04/25/16 at 1735, Until Thu04/30/16 at 1923, Nausea, Vomiting, If multiple antiemetics are ordered, use ondansetron first. PO Preferred. If patient unable to take PO, may give IV if ordered. May repeat times one in 45 minutes if ineffective. If unable to take PO, may give IV., Routine sodium chloride 0.9 % flush 5-20 mL 5-20 mL, Intravenous, EVERY 1 MIN PRN, Starting on Thu04/25/16 at 1735, Until Thu04/30/16 at 1923, flush, Flush pertains to all indwelling lines. Flush per protocol found in the job aid using the link provided on this medication record., Routine Linked Groups Order Group 1: vancomycin 1.25 g sodium in chloride 0.9% 250 mL (CANCELED)Jump to med 1,250 mg, Intravenous, at 200 mL/hr, EVERY 12 HOURS, First dose on Thu04/27/16 at 1830, Until Discontinued, Maximum infusion rate is 1 gram/hour. If flushing of the face, neck, upper body, arms, and/or back occurs decrease infusion rate by 50% to reduce the severity of symptoms. This medication may have an associated drug lab level. Please see MAR for scheduled level. Warning Vesicant/Irritant Medication , Routine And Vancomycin Level - MAR Order Reminder (CANCELED) NOT APPLICABLE, ONCE, On Thu04/29/16 at 0600, 1 dose, This alert will be scheduled by a pharmacist after order placement. This order is a reminder to nursing staff to release and draw the PRN drug level at the specified time. It may be necessary to contact phlebotomy 60 minutes prior to the scheduled due time to assure a timely blood draw. Group 2: ondansetron (ZOFRAN) tablet 4 mgJump to med 4 mg, Oral, EVERY 8 HOURS PRN, Starting on Thu04/25/16 at 1735, Until Thu04/30/16 at 1923, Nausea, Vomiting, If multiple antiemetics are ordered, use ondansetron first. PO Preferred. If patient unable to take PO, may give IV if ordered. May repeat times one in 45 minutes if ineffective. If unable to take PO, may give IV., Routine Or ondansetron (ZOFRAN) injection 4 mgJump to med 4 mg, Intravenous, EVERY 8 HOURS PRN, Starting on Thu04/25/16 at 1735, Until Thu04/30/16 at 1923, Nausea, May repeat times one in 30 minutes if ineffective. If multiple antiemetics are ordered, give ondansetron first. documented in this encounter Care Teams Outside Repairer Special Relationship Specialty Start Date End Date [place] Denis DO [address] [place] [address] PCP - General 09/03/12 03/17/22 Ruchi Valles RN Nurse Clinic Transplant Surgery 07/30/15 documented as of this encounter
--- OUTSIDE RECORDS SUMMARY | 2024-02-14 11:30 | XMS_ITS | Encounter Summary ---
Author Organization [facility] [place] [address] Care Team Providers Care Political Director Name Role Phone Urbano Denis DO Primary Care Provider [phone] Reason for Visit * Auth/Cert Specialty Diagnoses / Procedures Referred By Humberto flor Referred To Contact Diagnoses Dehydration Referral ID Status Reason Start Date Expiration Date Visits Re quested Visits Authorized [id number] 1 1 Encounter Details Date Type Department Care Team (Late st Contact Info) Description 05/20/2016 12:43 PM EST - 05/20/2016 6:12 PM EST Surgery [place] [id number] Moy Arredondo MD [facility] [place] [address] @URETERONEOCYSTOSTOMY ANASTOMOSIS OF SINGLE URETER TO BLADDER (WRVU 19.95) Social History Tobacco Use Types Packs/Day Years [...] - Primary * Pako Booth MD - Resident-Flask Fitter Panel 2: * Que Amaro MD - [...] No evidence of viral inclusions. B - Anvik left ureter: ? 1. Benign ureter. ? [...] central cross- sections. ??(R2) B - ??Labeled/Fixative: Anvik left ureter, fresh. Quantity/Size: Single, 8.2 x [...] Follow-up Recommendations for Providers: None PCP: Urbano Denis DO Scheduled Appointments: Future Appointments Date Time Provider Department Center 06/03/2016 8:00 AM LAB[facility] 9:00 AM Que Amaro MD [facility] Trans 2M [facility] 06/03/2016 10:00 AM URODYNAMIC LAB [facility] 06/03/2016 10:00 AM UROLOGY, NURSE [facility] 06/03/2016 10:40 AM Moy Arredondo MD [facility] 06/25/2016 10:00 AM Franko Kim MD Le[facility] Infec 5C [facility] 09/15/2016 9:00 AM LAB, THREE L Lab 3L [facility] 09/15/2016 10:00 AM Tal Eagle MD Leb Trans 2M [facility] Outpatient Services/Studies: XR Fluoro Cystogram Standing Status: [...] date and time of your appointment.Phone number: [phone] Future Appointments Date Time Provider Department Center 06/03/2016 8:00 AM LAB, THREE L Lab 3L [facility] 06/03/2016 9:00 AM Que Amaro MD Leb Trans 2M [facility] 06/03/2016 10:00 AM URODYNAMIC LAB [facility] 06/03/2016 10:00 AM UROLOGY, NURSE [facility] 06/03/2016 10:40 AM Moy Arredondo MD [facility] 06/25/2016 10:00 AM Franko Kim MD Leb Infec 5C [facility] 09/15/2016 9:00 AM DERRICK, STEPHANIE L Lab 3L [facility] 09/15/2016 10:00 [...] the message. You can also reach the activity coordinator after hours by calling (ask for the activity coordinator on-call). General Instructions None Provider Contact Information: If you have any questions or concerns during daytime hours, please call the Transplant clinic at [phone]. If you have questions or concerns during the night or weekends, please call [phone] ask to be transferred to the home health care coordinator continuing education director. Signed: EPIFANIO TORRE MD 05/28/2016 documented in [...] date and time of your appointment.Phone number: [phone] Future Appointments Date Time Provider Department Center 06/03/2016 8:00 AM LAB, THREE L Lab 3L [facility] 06/03/2016 9:00 AM Que Amaro MD Leb Trans 2M [facility] 06/03/2016 10:00 AM URODYNAMIC LAB [facility] 06/03/2016 10:00 AM UROLOGY, NURSE [facility] 06/03/2016 10:40 AM Moy Arredondo MD [facility] 06/25/2016 10:00 AM Franko Kim MD Leb Infec 5C [facility] 09/15/2016 9:00 AM LAB, THREE L Lab 3L [facility] 09/15/2016 10:00 AM Tal Eagle MD Leb [...] the message. You can also reach the activity coordinator after hours by calling (ask for the activity coordinator on-call). documented in this encounter Medications [...] 91 % SpO2: [91 %-94 %] 05/27 07 - 05/28 0700 In: 1740 [P.O.:1740] Out: [...] from bladder to proximal transplant ureter on residential antibiotics for coag negative staph bacteremia. Keep [...] performed and anastomosed to proximal graft ureter 2-Anvik left ureter divided and dissected then ligated [...] Bolden is a 65 y.o. male on residential IV abx for coag neg staph bacteremia [...] full code Francois Bowie MD Transplant Surgery [phone] Associated attestation - Que Amaro MD - [...] histologic evidence of BK virus infection. D/W Pavan Shinetus yesterday. Anticipate discharge home tomorrow if he [...] anticipating d/c with neph tube in place. Margert drain removed ID: Cody Bolden is a [...] from bladder to proximal transplant ureter on residential antibiotics for coag negative staph bacteremia. Keep [...] performed and anastomosed to proximal graft ureter 2-Anvik left ureter divided and dissected then ligated [...] Bolden is a 65 y.o. male on residential IV abx for coag neg staph bacteremia [...] in for approximately [address] rAredondo intends to perform cystoscopy before the nephrostomy [...] from bladder to proximal transplant ureter on keno terminal operator antibiotics for coag negative staph bacteremia. Keep [...] performed and anastomosed to proximal graft ureter 2-Anvik left ureter divided and dissected then ligated [...] Bolden is a 65 y.o. male on residential IV abx for coag neg staph bacteremia [...] Lines/Drains: Nephrostomy tube Drain Whaley Recent Labs 05/25/1644605/24/1644405/23/16 0543 05/22/16 0729 WBC 9.9* 8.4 10.0* 10.5* HGB 14.2 12.7* 13.9 12.8* HCT 40.3* 36.6* 40.7 36.7* PLATELET 247 211 211 210 Recent Labs 05/25/1644605/24/16 0445 05/23/16 0537 05/22/16 0729 NA 138 [...] from bladder to proximal transplant ureter on residential antibiotics for coag negative staph bacteremia. PLAN: [...] performed and anastomosed to proximal graft ureter 2-Anvik left ureter divided and dissected then ligated [...] Bolden is a 65 y.o. male on keno terminal operator IV abx for coag neg staph bacteremia [...] from bladder to proximal transplant ureter on residential antibiotics for coag negative staph bacteremia. PLAN: [...] ureter. Tension free. Short JJ stent placed Anvik left ureter divided and dissected then ligated [...] Franko Kim MD Infectious Disease Fellow Pager [phone] Attending Addendum: I have seen and examined the patient, reviewed the data and agree with the note by Dr. Tipton. * Kirby Cody - 05/23/2016 2:32 PM EST Top Frame Maker Encounter Note Patient Name: Cody Bolden : [id number] MR#: [id number] Admit Date: 05/13/2016 4:29 PM Hospital Day 10 days Narrative: Pt was not available and I will visit an other time. Assessment: Intervention and Outcome: Follow-up: Time in Direct Care: Cody Orr 05/23/2016 * Memo Alva MD - 05/23/2016 [...] notes. MARS SCHREIBER RN 05/23/2016 Pager # [phone] I performed the above scribed service and agree with the accuracy of the note. Memo Alva MD * Herlinda Bell RD - 05/23/2016 1:24 PM EST This medical technical writer has noted that patient has been [...] of bowel function yet 3 Days Post-Op [facility] 10 05/20 - Intraop findings: 1-Graft ureter completely stuck in pelvis, dissected up until the renal pelvis. Boari flap performed and anastomosed to proximal graft ureter 2-Anvik left ureter divided and dissected then ligated [...] Bolden is a 65 y.o. male on keno terminal operator IV abx for coag neg staph bacteremia [...] from bladder to proximal transplant ureter on keno terminal operator antibiotics for coag negative staph bacteremia. PLAN: [...] notes. MARS SCHREIBER RN 05/22/2016 Pager # [phone] Ria Schreiber RN, has performed the documentation [...] performed and anastomosed to proximal graft ureter 2-Anvik left ureter divided and dissected then ligated [...] Bolden is a 65 y.o. male on keno terminal operator IV abx for coag neg staph bacteremia [...] from bladder to proximal transplant ureter on residential antibiotics for coag negative staph bacteremia. PLAN: [...] dose given at 5AM today. Immunosuppression: Prograf 1/1.5 cellcept 25 q12 ROS: Doing well after [...] notes. KITTY STEELE RN 05/21/2016 Pager # [phone] Socorro Steele RN, has performed the documentation [...] performed and anastomosed to proximal graft ureter 2-Anvik left ureter divided and dissected then ligated [...] 05/21 0700 In: 5004 [P.O.:360; I.V.:4644] Out: 2025 [Urine:1625] Physical Exam: General: NAD, resting comfortably, [...] Bolden is a 65 y.o. male on residential IV abx for coag neg staph bacteremia [...] 4th digit. Lines/Drains: Recent Labs 05/21/16 0553 05/20/16221405/20/16 0547 05/19/16416 WBC 11.3* 10.2* 8.0 7.4 HGB 13.5* 13.9 14.1 14.2 HCT 37.8* 40.6 40.0* 40.2* PLATELET 222 214 214 192 PT -- -- -- 13.3 INR -- -- -- 1.0 Recent Labs 05/21/16 0553 05/20/16 22105/20/16 0547 05/19/16416 NA 136 138 138 140 K 4.5 [...] Note Patient: Cody Bolden s/p Surgery: 05/20/2016 [id number] Procedure(s) (LRB): @URETERONEOCYSTOSTOMY ANASTOMOSIS OF SINGLE URETER TO BLADDER (Left) @URETERONEOCYSTOSTOMY ANASTOMOSIS OF SINGLE URETER TO BLADDER (N/A) Surgeon(s) and Role: Panel 1: * Moy Arredondo MD - Primary * Pako Booth MD - Resident-Flask Fitter Panel 2: * Que Amaro MD - [...] Bolden is a 65 y.o. male on residential IV abx for coag neg staph bacteremia [...] of the kidney. Will send ureter for [id number] to determine whether there is evidence of [...] 98 102 CO2 25 27 26 BUN 11 11 13 CREATININE 1.09 1.15 1.23 GLUCOSE 166 168 164 CALCIUM 9.0 9.1 8.9 MAGNESIUM 0.68* 0.68* 0.73 PHOS 2.4* 2.8 2.9 ASSESSMENT: Cody Bolden is a 65 y.o. male on keno terminal operator IV abx for coag neg staph bacteremia [...] 95 % SpO2: [93 %-98 %] 05/17 07 - 05/18 0700 In: 6315 [P.O.:3527; I.V.:2538] [...] Bolden is a 65 y.o. male on residential IV abx for coag neg staph bacteremia [...] Bolden is a 65 y.o. male on residential IV abx for coag neg staph bacteremia [...] - Home meds Dispo: Floor, full code Mracio Haynes MD Transplant [id number] Associated attestation - [...] Patient is on a regular diet. This medical technical writer spoke with patient and his . [...] Franko Kim MD Infectious Disease Fellow Pager [phone] Attending Addendum: I have seen and examined [...] four extremities spontaneously Recent Labs 05/16/16 0624 11/10/31405/14/16 0645 WBC 7.5 9.1 9.4 HGB 14.4 [...] Bolden is a 65 y.o. male on residential IV abx for coag neg staph bacteremia [...] 94 % SpO2: [87 %-95 %] 05/14 701 - 05/15 700 In: 3762 [P.O.:1260; I.V.:2422] Out: 4300 [Urine:4300] Physical Exam: General: NAD, resting comfortably, pleasant, conversant HEENT: PERRL, anicteric sclerae CVS: RRR Pulm: comfortable on RA Abd: soft, nontender, non-distended : LLQ nephrostomy to gravity with clear yellow urine Ext: wwp Neuro: nonfocal,moving all four extremities spontaneously Recent Labs 05/15/1631405/14/16 0645 05/13/16 1000 WBC 9.1 9.4 11.9* HGB 14.7 14.2 15.7 HCT 41.3 41.1 44.1 PLATELET 209 208 267 Recent Labs 05/15/1631405/14/16 0645 05/13/16 1000 NA 140 139 136 K 3.6 3.3* 3.9 CL 101 100 96* CO2 26 25 24 BUN 9* 12 15 CREATININE 1.23 1.22 1.39 GLUCOSE 162 165 174 CALCIUM 9.0 8.8 9.5 MAGNESIUM 0.68* 0.60* 0.57* PHOS 2.9 2.1* 2.7 ASSESSMENT: Cody Bolden is a 65 y.o. male on residential IV abx for coag neg staph bacteremia [...] Bell RD - 05/14/2016 1:44 PM EST [facility] Post Transplant Nutrition Follow Up Date: 05/14/2016 Patient: Cody Bolden Transplant Date: 09/16/15 Anvik organ UNOS diagnosis: Transplant: Mr. Cdoy Bolden is a White Not nor 65 [...] Value Date CHLPL 134 05/13/2016 Assessment: This medical technical writer saw patient in clinic yesterday. He [...] inpatient; hydration status more appropriate. Plan: This medical technical writer provided patient with a booklet Tips for Better Food Intake to offer tips for loss ofappetite and help to lessen diarrhea, as well as ideas for healthy snacks. This medical technical writer will follow patient's labs and weight [...] Bolden is a 65 y.o. male on keno terminal operator IV abx for coag neg staph bacteremia [...] immunosuppression as follows: Prograf 1/, trough level was therapeutic yesterday in clinic. [...] tube Discussed Boari flap, graft ureter to penobscot ureter anastomosis, ileal ureter with him and [...] a 65 y.o. male who presents to [facility] with fever. History of Present Illness / [...] further clinical details. Kitty Marie MD 05/13/16 9602 * Paul Bain RN - 05/13/2016 5:33 PM EST Pt's leg bag switched to gravity bag for Pt's comfort. Per his request * Paul Bain RN - 05/13/2016 4:[address] Mix at the bed side * Martina Mix MD - 05/13/2016 4:34 PM EST Emergency Department Cody Bolden is a 65 y.o. male who presents to [facility] with from Transplant Surgery Clinic with an [...] (Interventions Implemented as Appropriate) 05/26/16 1519 05/27/16 0337 Coping/Psychosocial Plan Of Care Reviewed With -- patient Plan of Care Review Progress no change -- OUTCOME EVALUATION NOTE: OUTCOME SUMMARY: Patient had a good night. Slept throughout most of the night. Patient stated that he is trying to wean off the oxycodone. Requested 10mg of oxycodone twice throughout the night. Blood pressure was elevated all night. The 1999 and 0000 BP's were in the 170's SBP, notified and stated he would treat if [...] Outcome: Ongoing (Interventions Implemented as Appropriate) 05/17/16 17305/19/16 1505 05/22/16 0335 Individualization Patient Specific Preferences [...] Personalized Care? -- You can call me [facility] -- 05/24/16 1542 05/25/16 1449 Individualization [...] Enhance (Adult,NICU,,Obstetrics,Pediatric) Intervention: Enhance Health Knowledge 05/27/16 2149 Coping Strategies Supportive Measures active listening utilized Family/Support System Care involvement promoted Goal: Knowledgeable about Health Subject/Topic Patient will demonstrate the desired outcomes by discharge/transition of care. 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 with dermabond, no noted redness or drainage; [...] Purposeful hourly rounding; room near unit station; [employer] Patient-specific fall prevention interventions for sensory deficits provided, if applicable: [X] Yeslighting adjusted to task safety CPG GOAL OUTCOME EVALUATION: Goal: Individualization & Mutuality Outcome: Ongoing (Interventions Implemented as Appropriate) 05/17/16 17305/19/16 1505 05/22/16 0335 Individualization Patient Specific Preferences [...] Handling Outcome: Ongoing (Interventions Implemented as Appropriate) 05/17/16173105/26/16 1100 05/27/16 1117 Restraint Interventions Safety Promotion/Fall [...] nursing;patient Problem: Health Knowledge, Opportunity to Enhance (Adult,NICU,[place],Obstetrics,Pediatric) Goal: Knowledgeable about Health Subject/Topic Patient will demonstrate the desired outcomes by discharge/transition of care. Outcome: Ongoing (Interventions Implemented as Appropriate) 05/27/16 1542 Health Knowledge, Opportunity to Enhance (Adult,NICU,,Obstetrics,Pediatric) Knowledgeable [...] nursing;patient Problem: Health Knowledge, Opportunity to Enhance (Adult,NICU,[place],Obstetrics,Pediatric) Intervention: Enhance Health Knowledge 05/26/16 204 Coping Strategies Supportive Measures active listening utilized Family/Support System Care involvement promoted Goal: Knowledgeable about Health Subject/Topic Patient will demonstrate the desired outcomes by discharge/transition of care. Outcome: Ongoing (Interventions Implemented as Appropriate) 05/26/16 0128 Health Knowledge, Opportunity to Enhance (Adult,NICU,[place],Obstetrics,Pediatric) Knowledgeable about Health Subject/Topic making progress toward [...] Outcome: Ongoing (Interventions Implemented as Appropriate) 05/26/16 7388 Coping/Psychosocial Plan Of Care Reviewed With patient [...] OT needs. Precautions: immunosuppression, IV, whaley Pager: [phone] TAMELA MAK OT 05/25/2016 Occupational Therapy Rehabilitation [...] ambulate. Will continue to monitor. @0551: paged continuing education director MD Bonner for pt's elevated BP ( 184/83 @0424/ 180/81@2481). Pt c/o heartburnbut no chest pain. @0618: [...] Handling Outcome: Ongoing (Interventions Implemented as Appropriate) 05/17/16173105/23/160 05/24/162019 Restraint Interventions Safety Promotion/Fall Prevention -- [...] nursing;patient Problem: Health Knowledge, Opportunity to Enhance (Adult,NICU,[place],Obstetrics,Pediatric) Goal: Knowledgeable about Health Subject/Topic Patient will demonstrate the desired outcomes by discharge/transition of care. Outcome: Ongoing (Interventions Implemented as Appropriate) 05/25/1643 Health Knowledge, Opportunity to Enhance (Adult,NICU,,Obstetrics,Pediatric) Knowledgeable about Health Subject/Topic making progress toward outcome * Plan of Care - Yudelka Hinojosa RN - 05/24/2016 3:48 PM EST Problem: Patient Care Overview Goal: Plan of Care Review Outcome: Ongoing (Interventions Implemented as Appropriate) 05/17/16173116 1542 Coping/Psychosocial Plan Of Care Reviewed With [...] Appropriate) 05/24/161541 Health Knowledge, Opportunity to Enhance (Adult,NICU,[place],Obstetrics,Pediatric) Knowledgeable about Health Subject/Topic making progress toward [...] use of PCEA. Did not give Metop [id number], due to HR <55. Still unable to [...] for further information as needed. Melissa Stone, CINTHIA P.[id number] Goal: Discharge Needs Assessment Outcome: Ongoing (Interventions [...] to Achieve 1 day Gait Training Goal, Converse Level independent Gait Training Goal, Distance to Achieve >150' Gait Training Goal, Outcome goal met Goal: Physical Therapy Goal Stand Alone Therapy Goal Outcome: Outcome (s) achieved Date Met: 05/22/16 05/22/16 0953 Physical Therapy Goal PT Goal, Time to Achieve 1 day PT Goal, Converse Level independent PT Goal, Additional Goal Pt [...] Review Outcome: Ongoing (Interventions Implemented as Appropriate) 05/17/16173105/21/161958 Coping/Psychosocial Plan Of Care Reviewed With -- [...] PM EST Patient Name: Cody Bolden : [id number] MR#: [id number] ?? Case Date: 05/20/2016 ?? Surgeon: Surgeon(s) and Role: Panel 1: * Moy Arredondo MD - Primary * Pako Booth MD - Resident-Flask Fitter ?? Panel 2: * Que Amaro MD - Primary ?? Preoperative diagnosis: Transplanted ureter stricture ?? Postoperative diagnosis: Same ?? Procedure(s): Boari flap from bladder to proximal transplant ureter ? Anesthesia: Epidural, General ?? Findings: ?? 1-Graft ureter completely stuck in pelvis, dissected up until the renal pelvis. Boari flap performed and anastomosed to proximal graft ureter 2-Anvik left ureter divided and dissected then ligated [...] anastomosis between the graft ureter and the penobscot ureter. The patient was then brought into [...] the bladder until we got to the penobscot ureter, which was divided as it was [...] note, prior to closing the anastomosis, a 6-Wolof double-J stent with 12 cm of length [...] ureter. Tension free. Short JJ stent placed Anvik left ureter divided and dissected then ligated after observing it throughout the procedure without urine production MOY ARREDONDO MD 05/22/2016 * Brief Op Note - Pako Booth - 05/20/2016 9:09 PM EST Brief Operative Note Patient Name: Cody Bolden : [id number] MR#: [id number] Case Date: 05/20/2016 Surgeon: Surgeon(s) and Role: Panel 1: * Moy Arredondo MD - Primary * Pako Booth MD - Resident-Flask Fitter Panel 2: * Que Amaro MD - Primary Preoperative diagnosis: Transplanted ureter stricture Postoperative diagnosis: Same Procedure(s): Boari flap from bladder to proximal transplant ureter Anesthesia: Epidural, General Findings: 1-Graft ureter completely stuck in pelvis, dissected up until the renal pelvis. Boari flap performed and anastomosed to proximal graft ureter 2-Anvik left ureter divided and dissected then ligated [...] Review Outcome: Ongoing (Interventions Implemented as Appropriate) 05/17/16173105/20/16699 Coping/Psychosocial Plan Of Care Reviewed With -- [...] Outcome: Ongoing (Interventions Implemented as Appropriate) 05/17/1645 05/17/16173105/20/16 07 Restraint Interventions Safety Promotion/Fall Prevention -- -- [...] -- -- Score -- -- -- OTHER Tsephens Fall Risk -- -- -- Positioning Body [...] Review Outcome: Ongoing (Interventions Implemented as Appropriate) 05/17/16173105/19/1630 Coping/Psychosocial Plan Of Care Reviewed With -- [...] Review Outcome: Ongoing (Interventions Implemented as Appropriate) 05/17/16173105/18/162019 Coping/Psychosocial Plan Of Care Reviewed With -- [...] Outcome: Ongoing (Interventions Implemented as Appropriate) 05/17/16 17305/18/16 0850 Coping/Psychosocial Plan Of Care Reviewed With [...] independent Surveillance [continuous indirect monitoring]: Purposeful rounding, masimo, call light in reach at all times Patient-specific fall prevention interventions for sensory deficits provided, if applicable: No CPG GOAL OUTCOME EVALUATION: * Plan of Care - Magaly Rodrigues RN - 05/18/2016 2:51 AM EST Problem: Patient Care Overview Goal: Plan of Care Review Outcome: Ongoing (Interventions Implemented as Appropriate) 05/17/16 1732 Coping/Psychosocial Plan Of Care Reviewed With patient [...] ADLs]: Independent. Surveillance [continuous indirect monitoring]: Call rolbes. Rounding. Patient-specific fall prevention interventions for sensory deficits provided, if applicable: [X] No CPG GOAL OUTCOME EVALUATION: Goal: Individualization & Mutuality Outcome: Ongoing (Interventions Implemented as Appropriate) 05/14/16 0026 05/17/16 1732 Individualization Patient Specific Preferences -- would like [...] Ongoing (Interventions Implemented as Appropriate) 05/16/16 1849 05/17/162099 Safety Interventions Isolation Precautions -- standard precautions [...] ADLs]: standby Surveillance [continuous indirect monitoring]: Purposeful roundingSkyla Patient-specific fall prevention interventions for sensory deficits [...] (Interventions Implemented as Appropriate) 05/16/16 1849 05/17/16 1732 Safety Interventions Isolation Precautions -- standard precautions [...] Conf Outcome: Ongoing (Interventions Implemented as Appropriate) 05/17/16 1732 Interdisciplinary Rounds/Family Conf Participants nursing;patient;physician * Consult Note - Eleanor Bird RPH - 05/17/2016 1:19 PM EST Clinical Pharmacist Note-Vancomycin Cody Bolden [id number] Cody Bolden is a 65 y.o. male is being [...] have. Alternately, during off-hours you may call [phone] to contact a pharmacist. 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 * Plan of Care - Yudelka Hinojosa RN - 05/16/2016 4:17 AM EST [...] nursing;physician;patient Problem: Health Knowledge, Opportunity to Enhance (Adult,NICU,,Obstetrics,Pediatric) [...] EST Problem: Health Knowledge, Opportunity to Enhance (Adult,NICU,[place],Obstetrics,Pediatric) Goal: Knowledgeable about Health Subject/Topic Patient will [...] EXTREMITY performed by Que Amaro MD at [facility] MAIN OR ??? Pro transplantation of kidney N/A 09/16/2015 @KIDNEY TRANSPLANT, WITHOUT RECIPIENT NEPHRECTOMY performed by Franko Larkin MD at [facility] MAIN OR ??? Pro transplant, prep cadaver renal graft N/A 09/16/2015 @PREPARATION CADAVERIC RENAL ALLOGRAFT performed by Franko Larkin MD at [facility] MAIN OR ??? N/A 09/16/2015 ORGAN ACQUISITION RENAL, CADAVERIC performed by Franko Larkin MD at [facility] MAIN OR SOCIAL HISTORY Social History Social [...] CREATININE 1.23 1.22 1.39 CULTURES: Urine culture [[id number]] (Abnormal) Collected: 05/13/16 1300 ? Lab Status: [...] Sensitive ? Trimethoprim/Sulfa Sensitive ? Blood culture [[id number]] Collected: 05/13/16 1232 ? Lab Status: Preliminary result Specimen: Blood from Peripheral Updated: 05/15/16 1501 ? Blood Culture No growth at 2 days. ? Blood culture [[id number]] Collected: 05/13/16 1219 ? Lab Status: Preliminary result Specimen: Blood from PICC Line Updated: 05/15/16 1501 ? Blood Culture No growth at 2 days. ? Urine culture Nephrostomy Urine [[id number]] Collected: 04/28/16 1344 ? Lab Status: Final [...] (Interventions Implemented as Appropriate) 05/14/16 0317 05/14/16 190 Discharge Needs Assessment Concerns To Be Addressed [...] nursing;patient * Plan of Care - Amanda Guerra, RN - 05/14/2016 7:50 PM EST Problem: [...] EXTREMITY performed by Que Amaro MD at [facility] OR ??? Pro transplantation of kidney N/A 09/16/2015 @KIDNEY TRANSPLANT, WITHOUT RECIPIENT NEPHRECTOMY performed by Franko Larkin MD at [facility] OR ??? Pro transplant, prep cadaver renal graft N/A 09/16/2015 @PREPARATION CADAVERIC RENAL ALLOGRAFT performed by Franko Larkin MD at [facility] OR ??? N/A 09/16/2015 ORGAN ACQUISITION RENAL, CADAVERIC performed by Franko Larkin MD at [facility] OR Prior To Admission Medications: Prescriptions Prior [...] Do not hesitate to page us at [phone] with any further questions or concerns. Franko Kim MD Infectious Disease Fellow Pager [phone] Attending Addendum: I have seen and examined [...] Lives in a home with his in [facility] Social & Family Supports/Community Resources: , family and friends Behavioral Health History: None on file Substance Use/Abuse: None on file Other Pertinent/Service Specific Information: None Health/Prescription Coverage: Primary Insurance: Medicare Part A & B Secondary Insurance: BC/BS Prescription Coverage: Yes [facility] Other: None Primary Care Provider: Urbano Denis MD [phone] Patient/Caregiver Goals of Treatment: Patient states I [...] of care planning. Malina Phelan RN Pager: [phone] * Plan of Care - Keyana Moy [...] AM EDT Hospital Encounter [place] [address] Arrived Scheduled Orders Name Type Priority Associated Diagnoses Orde r Schedule XR Fluoro No Rad <1Hr Imaging Routine Onc e PRN (for Radiant use) for 1 Occurrences starting 05/20/2016 until 05/20/2016 documented as of this encounter Procedures Procedure Name Priority Date/Time Associated Diagnosis Comments COMPUTER INSTALLATION ENGINEER SCAN 05/29/2016 12:00 AM EST HEMOGRAM STAT [...] in this encounter Results * SCAN DOC: COMPUTER INSTALLATION ENGINEER (05/29/2016 12:00 AM EST) Anatomical Region Laterality [...] Lab Que Amaro MD CHEMISTRY ROCHELLE JENNINGS [facility] [place] [address] * (ABNORMAL) Differential, Automated (05/28/2016 8:01 AM EST) Neutrophil % 82.6 % [facility] Neutrophil Absolute 10.51(H) 1.70 - 6.10 x10(3)/mc L [facility] Lymph % 9.7 % [facility] Lymphocytes Abs 1.2 0.9 - 3.2 x10(3)/ L [facility] Monocyte % 5.3 % [facility] Monocyte Abs 0.7 0.3 - 0.9 x10(3)/[facility] Eos % 1.5 % [facility] Eosinophils Abs 0.2 0.0 - 0.4 x10(3)/[facility] Basophil % 0.4 % [facility] Baso Absolute 0.0 0.0 - 0.1 x10(3)/[facility] Immature Gran % 0.50 % [facility] Comment: Immature granulocytes(IG's)percentage and absolute count will include metamyelocytes, myelocytes, and promyelocytes. Blood smears from CBCs yielding IG's will be scanned manually for concordance. If this scan disagrees with the automated IG or if promyelocytes are noted, a manual differential will be performed. Immature Gran Absolute 0.07(H) 0.00 - 0.04 x10(3)/[facility] Blood specimen (specimen) 05/28/2016 8:01 AM EST 05/28/2016 8:07 AM EST Narrative Resulting Agency Comment Spec In Lab Que Amaro MD HEMATOLOGY ORD ERABLES Performing Organization Address City/State/[facility] Co de Phone Number [facility] [place] [address] * (ABNORMAL) Hemogram (05/28/2016 8:01 AM EST) White Blood Cell 12.7(H) 4.0 - 9.5 x10(3)/ L [facility] Red Blood Cell 4.20(L) 4.58 - 5.54 x10(6)/ L [facility] Hemoglobin 13.8 13.7 - 16.5 gm/dL [facility] Hematocrit 39.6(L) 40.5 - 48.5 % [facility] Mean Cell Volume 94.3(H) 82.9 - 93.1 fL [facility] Mean Cell Hemoglobin 32.9(H) 27.5 - 32.1 pg [facility] Mean Cell Hemoglobin Concentration 34.8 32.0 - 35.7 gm/dL [facility] Platelet 276 145 - 357 x10(3)/mc L [facility] RDW Standard Deviation 45.1(H) 36.0 - 45.0 [facility] RDW coefficient of variation 13.2 11.4 - 13.8 % [facility] Mean Platelet Volume 8.5 7.6 - 12.9 [facility] NRBC% auto 0.0 % [facility] NRBC Absolute 0.000 0.000 - 0.000 x10(3)/mc L [facility] Blood specimen (specimen) 05/28/2016 8:01 AM EST 05/28/2016 8:07 AM EST Narrative Resulting Agency Comment Spec In Lab Que Amaro MD HEMATOLOGY ORD AMANDABLES Performing Organization Address City/[facility]/ZIP Co de Phone Number [facility] [place] [address] * (ABNORMAL) Magnesium (05/28/2016 8:01 AM EST) Magnesium 0.68(L) 0.69 - 1.07 mmol/L [facility] Blood specimen (specimen) 05/28/2016 8:01 AM EST 05/28/2016 8:07 AM EST Narrative Resulting Agency Comment Spec In Lab Que Amaro MD CHEMISTRY ORDBhargav JENNINGS Performing Organization Address City/[facility]/ZIP Co de Phone Number [facility] [place] [address] * Phosphorus (05/28/2016 8:01 AM EST) Phosphorus 2.7 2.5 - 4.5 mg/dL [facility] Blood specimen (specimen) 05/28/2016 8:01 AM EST 05/28/2016 8:07 AM EST Narrative Resulting Agency Comment Spec In Lab Que Amaro MD CHEMISTRY ROCHELLE JENNINGS [facility] [place] [address] * Basic Metabolic Panel (non-fasting) (05/28/2016 8:01 AM EST) Glucose 181 65 - 199 mg/dL [facility] Comment:Diabetes: >=200 mg/d L plus symptoms Blood Urea Nitrogen 19 10 - 20 mg/dL [facility] Creatinine 1.16 0.80 - 1.50 mg/dL [facility] Comment: Please note that the pediatric reference intervals supplied above were not validated at [facility]. Results from pediatric patients should be interpreted in conjunction to the patient's age, height and muscle mass. Sodium 141 135 - 145 mmol/L [facility] Potassium 3.8 3.5 - 5.0 mmol/L [facility] Comment: Please note: ??Patients with WBC >100,000 may have falsely elevated Potassium levels. ??For accurate Potassium quantification in these patients send serum separator tube (gold top) for subsequent determinations. ??Contact the Clinical Chemistry Laboratory if there are any questions. Chloride 104 98 - 107 mmol/L [facility] Carbon Dioxide 23 22 - 31 mmol/L [facility] Anion Gap 14 5 - 15 mmol/L [facility] Calcium 9.4 8.5 - 10.5 mg/dL [facility] Est Glomerular Filtration Rate >60 >=60 [facility] Comment: This estimated GFR (eGFR) [...] the following links into your internet browser. [email or web address] Blood specimen (specimen) 05/28/2016 8:01 AM EST 05/28/2016 8:07 AM EST Narrative Resulting Agency Comment Spec In Lab Que Amaro MD CHEMISTRY ROCHELLE JENNINGS [facility] [place] [address] * (ABNORMAL) Differential, Automated (05/27/2016 5:43 AM EST) Neutrophil % 87.9 % [facility] Neutrophil Absolute 11.88(H) 1.70 - 6.10 x10(3)/mc L [facility] Lymph % 5.0 % [facility] Lymphocytes Abs 0.7(L) 0.9 - 3.2 x10(3)/mc L [facility] Monocyte % 5.5 % [facility] Monocyte Abs 0.8 0.3 - 0.9 x10(3)/mc L [facility] Eos % 0.9 % [facility] Eosinophils Abs 0.1 0.0 - 0.4 x10(3)/mc L [facility] Basophil % 0.3 % [facility] Baso Absolute 0.0 0.0 - 0.1 x10(3)/mc L [facility] Immature Gran % 0.40 % [facility] Comment: Immature granulocytes(IG's)percentage and absolute count will include metamyelocytes, myelocytes, and promyelocytes. Blood smears from CBCs yielding IG's will be scanned manually for concordance. If this scan disagrees with the automated IG or if promyelocytes are noted, a manual differential will be performed. Immature Gran Absolute 0.06(H) 0.00 - 0.04 x10(3)/[facility] Blood specimen (specimen) 05/27/2016 5:43 AM EST 05/27/2016 6:09 AM EST Narrative Resulting Agency Comment Spec In Lab Que Amaro MD HEMATOLOGY ORD ERABLES [facility] [place] [address] * (ABNORMAL) Hemogram (05/27/2016 5:43 AM EST) White Blood Cell 13.5(H) 4.0 - 9.5 x10(3)/[facility] Red Blood Cell 4.10(L) 4.58 - 5.54 x10(6)/[facility] Hemoglobin 13.1(L) 13.7 - 16.5 gm/dL [facility] Hematocrit 38.5(L) 40.5 - 48.5 % [facility] Mean Cell Volume 93.9(H) 82.9 - 93.1 [facility] Mean Cell Hemoglobin 32.0 27.5 - 32.1 pg [facility] Mean Cell Hemoglobin Concentration 34.0 32.0 - 35.7 gm/dL [facility] Platelet 246 145 - 357 x10(3)/[facility] RDW Standard Deviation 44.5 36.0 - 45.0 [facility] RDW coefficient of variation 13.1 11.4 - 13.8 % [facility] Mean Platelet Volume 8.8 7.6 - 12.9 [facility] NRBC% auto 0.0 % [facility] NRBC Absolute 0.000 0.000 - 0.000 x10(3)/[facility] Blood specimen (specimen) 05/27/2016 5:43 AM EST 05/27/2016 6:09 AM EST Narrative Resulting Agency Comment Spec In Lab Que Amaro MD HEMATOLOGY ORD ERABLES Performing Organization Address City/[facility]/ZIP Co de Phone Number [facility] [place] [address] * Magnesium (05/27/2016 5:43 AM EST) Magnesium 0.73 0.69 - 1.07 mmol/L [facility] Blood specimen (specimen) 05/27/2016 5:43 AM EST 05/27/2016 6:09 AM EST Narrative Resulting Agency Comment Spec In Lab Que Amaro MD CHEMISTRY ORDE DICK Performing Organization Address [facility] Co de Phone Number [facility] [place] [address] * Phosphorus (05/27/2016 5:43 AM EST) Phosphorus 3.2 2.5 - 4.5 mg/dL [facility] Blood specimen (specimen) 05/27/2016 5:43 AM EST 05/27/2016 6:09 AM EST Narrative Resulting Agency Comment Spec In Lab Que Amaro MD CHEMISTRY ORDE DICK Performing Organization Address [facility] Co de Phone Number [facility] [place] [address] * Basic Metabolic Panel (non-fasting) (05/27/2016 5:43 AM EST) Glucose 148 65 - 199 mg/dL [facility] Comment:Diabetes: >=200 mg/d L plus symptoms Blood Urea Nitrogen 17 10 - 20 mg/dL [facility] Creatinine 1.04 0.80 - 1.50 mg/dL [facility] Comment: Please note that the pediatric reference intervals supplied above were not validated at [facility]. Results from pediatric patients should be interpreted in conjunction to the patient's age, height and muscle mass. Sodium 141 135 - 145 mmol/L [facility] Potassium 3.8 3.5 - 5.0 mmol/L [facility] Comment: Please note: ??Patients with WBC >100,000 may have falsely elevated Potassium levels. ??For accurate Potassium quantification in these patients send serum separator tube (gold top) for subsequent determinations. ??Contact the Clinical Chemistry Laboratory if there are any questions. Chloride 102 98 - 107 mmol/L [facility] Carbon Dioxide 24 22 - 31 mmol/L [facility] Anion Gap 15 5 - 15 mmol/L [facility] Calcium 9.0 8.5 - 10.5 mg/dL [facility] Est Glomerular Filtration Rate >60 >=60 [facility] Comment: This estimated GFR (eGFR) [...] the following links into your internet browser. [email or web address] Blood specimen (specimen) 05/27/2016 5:43 AM EST 05/27/2016 6:09 AM EST Narrative Resulting Agency Comment Spec In Lab Que Amaro MD CHEMISTRY ROCHELLE JENNINGS [facility] [place] [address] * Potassium (05/26/2016 4:57 PM EST) Potassium 4.5 3.5 - 5.0 mmol/L [facility] Comment: Please note: [...] Lab Que Amaro MD CHEMISTRY ROCHELLE JENNINGS [facility] [place] [address] * XR Chest PA & Lateral (Generic) [...] Blood Culture No growth at 5 days. [facility] Blood specimen (specimen) 05/26/2016 10:09 AM EST 05/26/2016 10:35 AM EST Comment:R AC Narrative Resulting Agency Comment Spec In Lab Que Amaro MD MICROBIOLOGY - BLOOD ORDERABLES Performing Organization Address [facility] Co de Phone Number [facility] [place] [address] * Blood culture (05/26/2016 10:04 AM EST) Blood Culture No growth at 5 days. [facility] Blood specimen (specimen) 05/26/2016 10:04 AM EST 05/26/2016 10:35 AM EST Comment:R H Narrative Resulting Agency Comment Spec In Lab Que Amaro MD MICROBIOLOGY - BLOOD ORDERABLES Performing Organization Address [facility] Co de Phone Number [facility] [place] [address] * Urine Hold (05/26/2016 9:54 AM EST) Hold, Urine Sample in lab. [facility] Urine specimen (specimen) Urine / Unknown 05/26/2016 9:54 AM EST 05/26/2016 10:46 AM EST Que Amaro MD URINE ORDERABL ES Performing Organization Address [facility] de Phone Number [facility] [place] [address] * (ABNORMAL) Urinalysis without microscopic (05/26/2016 9:54 AM EST) Glucose, Urine Dipstick Negative Negative mg/dL [facility] Protein, Urine Dipstick 100(A) Negative mg/dL [facility] Bilirubin, Urine Dipstick Negative Negative mg/dL [facility] Comment: Clinical correlation required for positive Urine Bilirubin results as false positive may occur with some drugs and drug related products. If a false positive is suspected a serum total bilirubin should be considered if clinically indicated. Urobilinogen, Urine Dipstick Normal Normal mg/dL [facility] pH, Urn (dipstick) 6.0 5.0 - 8.0 [facility] Blood, Urine Dipstick Moderate(A) Negative mg/dL [facility] Ketone, Urine Dipstick Negative Negative mg/dL [facility] Nitrite, Urine Dipstick Negative Negative [facility] Leukocytes, Urine Dipstick Moderate(A) Negative [facility] Appearance, Urine Dipstick Clear Clear [facility] Specific [place] Urine Automated 1.027 1.002 - 1.030 [facility] Color, Urine Dipstick Muna Yellow [facility] Urine specimen (specimen) 05/26/2016 9:54 AM EST 05/26/2016 10:46 AM EST Narrative Resulting Agency Comment Spec In Lab Que Amaro MD URINE ORDERABL ES Performing Organization Address [facility] Co de Phone Number [facility] [place] [address] * Urine culture Indwelling Catheter Urine (05/26/2016 9:53 AM EST) Urine Culture No growth (Less than 1,000 cfu/ml). [facility] Urine specimen obtained via indwelling urinary catheter (specimen) 05/26/2016 9:53 AM EST 05/26/2016 10:56 AM EST Narrative Resulting Agency Comment Spec In Lab Que Amaro MD MICROBIOLOGY - GENERAL ORDERABLES Performing Organization Address [facility] Co de Phone Number [facility] [place] [address] * Tacrolimus level (05/26/2016 7:35 AM EST) Tacrolimus 5.3 ng/mL [facility] Comment: Trough therapeutic: ??5-15 ng/mL Performed by ultra-performance liquid chromatography tandem mass spectrometry (UPLCMS/MS). Blood specimen (specimen) 05/26/2016 7:35 AM EST 05/26/2016 11:12 AM EST Narrative Resulting Agency Comment Spec In Lab Que Amaro MD CHEMISTRY ROCHELLE JENNINGS [facility] [place] [address] * (ABNORMAL) Differential, Automated (05/26/2016 4:30 AM EST) Neutrophil % 80.7 % [facility] Neutrophil Absolute 10.51(H) 1.70 - 6.10 x10(3)/ L [facility] Lymph % 10.3 % [facility] Lymphocytes Abs 1.3 0.9 - 3.2 x10(3)/[facility] Monocyte % 6.5 % [facility] Monocyte Abs 0.8 0.3 - 0.9 x10(3)/[facility] Eos % 1.6 % [facility] Eosinophils Abs 0.2 0.0 - 0.4 x10(3)/[facility] Basophil % 0.4 % [facility] Baso Absolute 0.0 0.0 - 0.1 x10(3)/ L [facility] Immature Gran % 0.50 % [facility] Comment: Immature granulocytes(IG's)percentage and absolute count will include metamyelocytes, myelocytes, and promyelocytes. Blood smears from CBCs yielding IG's will be scanned manually for concordance. If this scan disagrees with the automated IG or if promyelocytes are noted, a manual differential will be performed. Immature Gran Absolute 0.06(H) 0.00 - 0.04 x10(3)/mc L [facility] Blood specimen (specimen) 05/26/2016 4:30 AM EST 05/26/2016 4:44 AM EST Narrative Resulting Agency Comment Spec In Lab Que Amaro MD HEMATOLOGY ORD ERABLES Performing Organization Address City/[facility]/ZIP Co de Phone Number [facility] [place] [address] * (ABNORMAL) Hemogram (05/26/2016 4:30 AM EST) White Blood Cell 13.0(H) 4.0 - 9.5 x10(3)/ L [facility] Red Blood Cell 4.67 4.58 - 5.54 x10(6)/mc L [facility] Hemoglobin 14.8 13.7 - 16.5 gm/dL [facility] Hematocrit 43.2 40.5 - 48.5 % [facility] Mean Cell Volume 92.5 82.9 - 93.1 [facility] Mean Cell Hemoglobin 31.7 27.5 - 32.1 pg [facility] Mean Cell Hemoglobin Concentration 34.3 32.0 - 35.7 gm/dL [facility] Platelet 304 145 - 357 x10(3)/mc L [facility] RDW Standard Deviation 43.0 36.0 - 45.0 [facility] RDW coefficient of variation 12.9 11.4 - 13.8 % [facility] Mean Platelet Volume 8.6 7.6 - 12.9 [facility] NRBC% auto 0.0 % [facility] NRBC Absolute 0.000 0.000 - 0.000 x10(3)/ L [facility] Blood specimen (specimen) 05/26/2016 4:30 AM EST 05/26/2016 4:44 AM EST Narrative Resulting Agency Comment Spec In Lab Que Amaro MD HEMATOLOGY ORD ERABLES [facility] [place] [address] * Magnesium (05/26/2016 4:30 AM EST) [facility] Magnesium 0.82 0.69 - 1.07 mmol/L [facility] Blood specimen (specimen) 05/26/2016 4:30 AM EST 05/26/2016 4:44 AM EST Narrative Resulting Agency Comment Spec In Lab Que Amaro MD CHEMISTRY ORDE DICK Performing Organization Address [facility] Co de Phone Number [facility] [place] [address] * Phosphorus (05/26/2016 4:30 AM EST) [facility] Phosphorus 3.0 2.5 - 4.5 mg/dL [facility] Blood specimen (specimen) 05/26/2016 4:30 AM EST 05/26/2016 4:44 AM EST Narrative Resulting Agency Comment Spec In Lab Que Amaro MD CHEMISTRY ORDBhargav JENNINGS Performing Organization Address [facility] Co de Phone Number [facility] [place] [address] * (ABNORMAL) Basic Metabolic Panel (non-fasting) (05/26/2016 4:30 AM EST) [facility] Glucose 224(H) 65 - 199 mg/dL [facility] Comment:Diabetes: >=200 mg/d L plus symptoms Blood Urea Nitrogen 20 10 - 20 mg/dL [facility] Comment:result rechecked-llu Creatinine 1.32 0.80 - 1.50 mg/dL [facility] Comment: Please note that the pediatric reference intervals supplied above were not validated at [facility]. Results from pediatric patients should be interpreted in conjunction to the patient's age, height and muscle mass. Sodium 143 135 - 145 mmol/L [facility] Potassium 3.7 3.5 - 5.0 mmol/L [facility] Comment: Please note: ??Patients with WBC >100,000 may have falsely elevated Potassium levels. ??For accurate Potassium quantification in these patients send serum separator tube (gold top) for subsequent determinations. ??Contact the Clinical Chemistry Laboratory if there are any questions. Chloride 100 98 - 107 mmol/L [facility] Carbon Dioxide 23 22 - 31 mmol/L [facility] Anion Gap 20(H) 5 - 15 mmol/L [facility] Calcium 9.8 8.5 - 10.5 mg/dL [facility] Comment:result rechecked-llu Est Glomerular Filtration Rate 54(L) >=60 [facility] Comment: This estimated GFR (eGFR) [...] the following links into your internet browser. [email or web address] Blood specimen (specimen) 05/26/2016 4:30 AM EST 05/26/2016 4:44 AM EST Narrative Resulting Agency Comment Spec In Lab Que Amaro MD CHEMISTRY ROCHELLE JENNINGS [facility] [place] Organization Address City/State/ZIP Co de Phone Number [facility] [place] [address] * (ABNORMAL) Basic Metabolic Panel (non-fasting) (05/25/2016 4:38 PM EST) Glucose 189 65 - 199 mg/dL [facility] Comment:Diabetes: >=200 mg/d L plus symptoms Blood Urea Nitrogen 12 10 - 20 mg/dL [facility] Creatinine 1.10 0.80 - 1.50 mg/dL [facility] Comment: Please note that the pediatric reference intervals supplied above were not validated at [facility]. Results from pediatric patients should be interpreted in conjunction to the patient's age, height and muscle mass. Sodium 140 135 - 145 mmol/L [facility] Potassium 4.0 3.5 - 5.0 mmol/L [facility] Comment: Please note: ??Patients with WBC >100,000 may have falsely elevated Potassium levels. ??For accurate Potassium quantification in these patients send serum separator tube (gold top) for subsequent determinations. ??Contact the Clinical Chemistry Laboratory if there are any questions. Chloride 99 98 - 107 mmol/L [facility] Carbon Dioxide 25 22 - 31 mmol/L [facility] Anion Gap 16(H) 5 - 15 mmol/L [facility] Calcium 9.2 8.5 - 10.5 mg/dL [facility] Est Glomerular Filtration Rate >60 >=60 [facility] Comment: This estimated GFR (eGFR) [...] the following links into your internet browser. [email or web address] Blood specimen (specimen) 05/25/2016 4:38 PM EST 05/25/2016 4:44 PM EST Narrative Resulting Agency Comment Spec In Lab Que Amaro MD CHEMISTRY ROCHELLE JENNINGS [facility] [place] [address] * Magnesium (05/25/2016 4:38 PM EST) Magnesium 0.74 0.69 - 1.07 mmol/L [facility] Blood specimen (specimen) 05/25/2016 4:38 PM EST 05/25/2016 4:44 PM EST Narrative Resulting Agency Comment Spec In Lab Que Amaro MD CHEMISTRY ROCHELLE JENNINGS [facility] [place] [address] * XR Abdomen 1 view (Generic) (05/25/2016 [...] with medication in the gut. There is [id number] gaseous distention of the large bowel most [...] correspond withmedication in the gut. There is [id number] gaseous distention of the largebowel most suggestive of an adynamic ileus. No free air is seen. Bony structuresappear intact. IMPRESSION Increasing mild to moderate gaseous distention throughout the large bowelmost suggestive of an adynamic or reactive ileus Que Amaro MD IMG DX ORDERAB LES * (ABNORMAL) Magnesium (05/25/2016 4:47 AM EST) [facility] Magnesium 0.61(L) 0.69 - 1.07 mmol/L [facility] Blood specimen (specimen) 05/25/2016 4:47 AM EST 05/25/2016 4:59 AM EST Narrative Resulting Agency Comment Spec In Lab Que Amaro MD CHEMISTRY ORDBhargav JENNINGS Performing Organization Address City/[facility]/ZIP Co de Phone Number [facility] [place] [address] * Phosphorus (05/25/2016 4:47 AM EST) [facility] Phosphorus 2.5 2.5 - 4.5 mg/dL [facility] Blood specimen (specimen) 05/25/2016 4:47 AM EST 05/25/2016 4:59 AM EST Narrative Resulting Agency Comment Spec In Lab Que Amaro MD CHEMISTRY ORDE [email or web address] Performing Organization Address City/[facility]/ZIP Co de Phone Number [facility] [place] [address] * Basic Metabolic Panel (non-fasting) (05/25/2016 4:47 AM EST) [facility] Glucose 159 65 - 199 mg/dL [facility] Comment:Diabetes: >=200 mg/d L plus symptoms Blood Urea Nitrogen 10 10 - 20 mg/dL [facility] Creatinine 0.98 0.80 - 1.50 mg/dL [facility] Comment: Please note that the pediatric reference intervals supplied above were not validated at [facility]. Results from pediatric patients should be interpreted in conjunction to the patient's age, height and muscle mass. Sodium 138 135 - 145 mmol/L [facility] Potassium 3.5 3.5 - 5.0 mmol/L [facility] Comment: Please note: ??Patients with WBC >100,000 may have falsely elevated Potassium levels. ??For accurate Potassium quantification in these patients send serum separator tube (gold top) for subsequent determinations. ??Contact the Clinical Chemistry Laboratory if there are any questions. Chloride 98 98 - 107 mmol/L [facility] Carbon Dioxide 27 22 - 31 mmol/L [facility] Anion Gap 13 5 - 15 mmol/L [facility] Calcium 8.7 8.5 - 10.5 mg/dL [facility] Est Glomerular Filtration Rate >60 >=60 [facility] Comment: This estimated GFR (eGFR) [...] the following links into your internet browser. [email or web address] [email or web address] Blood specimen (specimen) 05/25/2016 4:47 AM EST 05/25/2016 4:59 AM EST Narrative Resulting Agency Comment Spec In Lab Que Amaro MD CHEMISTRY ROCHELLE JENNINGS [facility] [place] Organization Address City/State/ZIP Co de Phone Number [facility] [place] [address] * (ABNORMAL) Differential, Automated (05/25/2016 4:47 AM EST) Neutrophil % 83.2 % [facility] Neutrophil Absolute 8.21(H) 1.70 - 6.10 x10(3)/mc L [facility] Lymph % 9.3 % [facility] Lymphocytes Abs 0.9 0.9 - 3.2 x10(3)/mc L [facility] Monocyte % 5.4 % [facility] Monocyte Abs 0.5 0.3 - 0.9 x10(3)/[facility] Eos % 1.2 % [facility] Eosinophils Abs 0.1 0.0 - 0.4 x10(3)/[facility] Basophil % 0.4 % [facility] Baso Absolute 0.0 0.0 - 0.1 x10(3)/[facility] Immature Gran % 0.50 % [facility] Comment: Immature granulocytes(IG's)percentage and absolute count will include metamyelocytes, myelocytes, and promyelocytes. Blood smears from CBCs yielding IG's will be scanned manually for concordance. If this scan disagrees with the automated IG or if promyelocytes are noted, a manual differential will be performed. Immature Gran Absolute 0.05(H) 0.00 - 0.04 x10(3)/[facility] Blood specimen (specimen) 05/25/2016 4:47 AM EST 05/25/2016 4:59 AM EST Narrative Resulting Agency Comment Spec In Lab Que Amaro MD HEMATOLOGY ORD ERABLES [facility] [place] [address] * (ABNORMAL) Hemogram (05/25/2016 4:47 AM EST) White Blood Cell 9.9(H) 4.0 - 9.5 x10(3)/[facility] Red Blood Cell 4.35(L) 4.58 - 5.54 x10(6)/[facility] Hemoglobin 14.2 13.7 - 16.5 gm/dL [facility] Hematocrit 40.3(L) 40.5 - 48.5 % [facility] Mean Cell Volume 92.6 82.9 - 93.1 fL [facility] Mean Cell Hemoglobin 32.6(H) 27.5 - 32.1 pg [facility] Mean Cell Hemoglobin Concentration 35.2 32.0 - 35.7 gm/dL [facility] Platelet 247 145 - 357 x10(3)/mc L [facility] RDW Standard Deviation 42.3 36.0 - 45.0 fL [facility] RDW coefficient of variation 12.5 11.4 - 13.8 % [facility] Mean Platelet Volume 8.7 7.6 - 12.9 fL [facility] NRBC% auto 0.0 % [facility] NRBC Absolute 0.000 0.000 - 0.000 x10(3)/mc L [facility] Blood specimen (specimen) 05/25/2016 4:47 AM EST 05/25/2016 4:59 AM EST Narrative Resulting Agency Comment Spec In Lab Que Amaro MD HEMATOLOGY ORD ERABLES Performing Organization Address City/State/[facility] Co de Phone Number [facility] [place] [phone] * (ABNORMAL) Differential, Automated (05/24/2016 4:45 AM EST) Neutrophil % 75.5 % [facility] Neutrophil Absolute 6.34(H) 1.70 - 6.10 x10(3)/mc L [facility] Lymph % 14.6 % [facility] Lymphocytes Abs 1.2 0.9 - 3.2 x10(3)/mc L [facility] Monocyte % 6.0 % [facility] Monocyte Abs 0.5 0.3 - 0.9 x10(3)/mc L [facility] Eos % 2.9 % [facility] Eosinophils Abs 0.2 0.0 - 0.4 x10(3)/mc L [facility] Basophil % 0.6 % [facility] Baso Absolute 0.0 0.0 - 0.1 x10(3)/mc L [facility] Immature Gran % 0.40 % [facility] Comment: Immature granulocytes(IG's)percentage and absolute count will include metamyelocytes, myelocytes, and promyelocytes. Blood smears from CBCs yielding IG's will be scanned manually for concordance. If this scan disagrees with the automated IG or if promyelocytes are noted, a manual differential will be performed. Immature Gran Absolute 0.03 0.00 - 0.04 x10(3)/[facility] Blood specimen (specimen) 05/24/2016 4:45 AM EST 05/24/2016 5:06 AM EST Narrative Resulting Agency Comment Spec In Lab Que Amaro MD HEMATOLOGY ORD ERABLES [facility] [place] [address] * (ABNORMAL) Hemogram (05/24/2016 4:45 AM EST) White Blood Cell 8.4 4.0 - 9.5 x10(3)/[facility] Red Blood Cell 3.96(L) 4.58 - 5.54 x10(6)/[facility] Hemoglobin 12.7(L) 13.7 - 16.5 gm/dL [facility] Hematocrit 36.6(L) 40.5 - 48.5 % [facility] Mean Cell Volume 92.4 82.9 - 93.1 fL [facility] Mean Cell Hemoglobin 32.1 27.5 - 32.1 pg [facility] Mean Cell Hemoglobin Concentration 34.7 32.0 - 35.7 gm/dL [facility] Platelet 211 145 - 357 x10(3)/ L [facility] RDW Standard Deviation 42.5 36.0 - 45.0 fL [facility] RDW coefficient of variation 12.5 11.4 - 13.8 % [facility] Mean Platelet Volume 8.9 7.6 - 12.9 fL [facility] NRBC% auto 0.0 % [facility] NRBC Absolute 0.000 0.000 - 0.000 x10(3)/mc L [facility] Blood specimen (specimen) 05/24/2016 4:45 AM EST 05/24/2016 5:06 AM EST Narrative Resulting Agency Comment Spec In Lab Que Amaro MD HEMATOLOGY ORD ERABLES Performing Organization Address City/[facility]/ZIP Co de Phone Number [facility] [place] [address] * (ABNORMAL) Magnesium (05/24/2016 4:45 AM EST) Magnesium 0.59(L) 0.69 - 1.07 mmol/L [facility] Blood specimen (specimen) 05/24/2016 4:45 AM EST 05/24/2016 5:06 AM EST Narrative Resulting Agency Comment Spec In Lab Que Amaro MD CHEMISTRY ORDBhargav JENNINGS Performing Organization Address [facility] Co de Phone Number [facility] [place] [address] * Phosphorus (05/24/2016 4:45 AM EST) Phosphorus 2.6 2.5 - 4.5 mg/dL [facility] Blood specimen (specimen) 05/24/2016 4:45 AM EST 05/24/2016 5:06 AM EST Narrative Resulting Agency Comment Spec In Lab Que Amaro MD CHEMISTRY ORDBhargav JENNINGS Performing Organization Address [facility] Co de Phone Number [facility] [place] [address] * Basic Metabolic Panel (non-fasting) (05/24/2016 4:45 AM EST) Glucose 128 65 - 199 mg/dL [facility] Comment:Diabetes: >=200 mg/d L plus symptoms Blood Urea Nitrogen 10 10 - 20 mg/dL [facility] Creatinine 1.04 0.80 - 1.50 mg/dL [facility] Comment: Please note that the pediatric reference intervals supplied above were not validated at [facility]. Results from pediatric patients should be interpreted in conjunction to the patient's age, height and muscle mass. Sodium 139 135 - 145 mmol/L [facility] Potassium 3.6 3.5 - 5.0 mmol/L [facility] Comment: Please note: ??Patients with WBC >100,000 may have falsely elevated Potassium levels. ??For accurate Potassium quantification in these patients send serum separator tube (gold top) for subsequent determinations. ??Contact the Clinical Chemistry Laboratory if there are any questions. Chloride 101 98 - 107 mmol/L [facility] Carbon Dioxide 25 22 - 31 mmol/L [facility] Anion Gap 13 5 - 15 mmol/L [facility] Calcium 8.5 8.5 - 10.5 mg/dL [facility] Est Glomerular Filtration Rate >60 >=60 [facility] Comment: This estimated GFR (eGFR) [...] the following links into your internet browser. [email or web address] Blood specimen (specimen) 05/24/2016 4:45 AM EST 05/24/2016 5:06 AM EST Narrative Resulting Agency Comment Spec In Lab Qeu Amaro MD CHEMISTRY ROCHELLE JENNINGS [facility] [place] Organization Address City/State/ZIP Co de Phone Number [facility] [place] [address] * Tacrolimus level (05/23/2016 7:50 AM EST) Tacrolimus 5.4 ng/mL [facility] Comment: Trough therapeutic: ??5-15 ng/mL Performed by ultra-performance liquid chromatography tandem mass spectrometry (UPLCMS/MS). Blood specimen (specimen) 05/23/2016 7:50 AM EST 05/23/2016 11:06 AM EST Narrative Resulting Agency Comment Spec In Lab Que Amaro MD CHEMISTRY ROCHELLE JENNINGS [facility] [place] [address] * (ABNORMAL) Differential, Automated (05/23/2016 5:43 AM EST) Neutrophil % 72.3 % [facility] Neutrophil Absolute 7.21(H) 1.70 - 6.10 x10(3)/mc L [facility] Lymph % 20.0 % [facility] Lymphocytes Abs 2.0 0.9 - 3.2 x10(3)/mc L [facility] Monocyte % 5.4 % [facility] Monocyte Abs 0.5 0.3 - 0.9 x10(3)/mc L [facility] Eos % 1.2 % [facility] Eosinophils Abs 0.1 0.0 - 0.4 x10(3)/mc L [facility] Basophil % 0.6 % [facility] Baso Absolute 0.1 0.0 - 0.1 x10(3)/mc L [facility] Immature Gran % 0.50 % [facility] Comment: Immature granulocytes(IG's)percentage and absolute count will include metamyelocytes, myelocytes, and promyelocytes. Blood smears from CBCs yielding IG's will be scanned manually for concordance. If this scan disagrees with the automated IG or if promyelocytes are noted, a manual differential will be performed. Immature Gran Absolute 0.05(H) 0.00 - 0.04 x10(3)/ L [facility] Blood specimen (specimen) 05/23/2016 5:43 AM EST 05/23/2016 5:51 AM EST Narrative Resulting Agency Comment Spec In Lab Que Amaro MD HEMATOLOGY ORD ERABLES [facility] [place] [address] * (ABNORMAL) Hemogram (05/23/2016 5:43 AM EST) White Blood Cell 10.0(H) 4.0 - 9.5 x10(3)/[facility] Red Blood Cell 4.22(L) 4.58 - 5.54 x10(6)/[facility] Hemoglobin 13.9 13.7 - 16.5 gm/dL [facility] Hematocrit 40.7 40.5 - 48.5 % [facility] Mean Cell Volume 96.4(H) 82.9 - 93.1 [facility] Mean Cell Hemoglobin 32.9(H) 27.5 - 32.1 pg [facility] Mean Cell Hemoglobin Concentration 34.2 32.0 - 35.7 gm/dL [facility] Platelet 211 145 - 357 x10(3)/[facility] RDW Standard Deviation 44.1 36.0 - 45.0 [facility] RDW coefficient of variation 12.5 11.4 - 13.8 % [facility] Mean Platelet Volume 8.9 7.6 - 12.9 [facility] NRBC% auto 0.0 % [facility] NRBC Absolute 0.000 0.000 - 0.000 x10(3)/ L [facility] Blood specimen (specimen) 05/23/2016 5:43 AM EST 05/23/2016 5:51 AM EST Narrative Resulting Agency Comment Spec In Lab Que Amaro MD HEMATOLOGY ORD ERABLES Performing Organization Address [facility] Co de Phone Number [facility] [place] [address] * (ABNORMAL) Magnesium (05/23/2016 5:37 AM EST) Magnesium 0.55(L) 0.69 - 1.07 mmol/L [facility] Blood specimen (specimen) 05/23/2016 5:37 AM EST 05/23/2016 5:51 AM EST Narrative Resulting Agency Comment Spec In Lab Que Amaro MD CHEMISTRY ORDBhargav JENNINGS Performing Organization Address [facility] Phone Number [facility] [place] [address] * (ABNORMAL) Phosphorus (05/23/2016 5:37 AM EST) [facility] Signature Phosphorus 2.2(L) 2.5 - 4.5 mg/dL [facility] Blood specimen (specimen) 05/23/2016 5:37 AM EST 05/23/2016 5:51 AM EST Narrative Resulting Agency Comment Spec In Lab Que Amaro MD CHEMISTRY ROCHELLE JENNINGS Performing Organization Address [facility] Phone Number [facility] [place] [address] * (ABNORMAL) Basic Metabolic Panel (non-fasting) (05/23/2016 5:37 AM EST) Glucose 136 65 - 199 mg/dL [facility] Comment:Diabetes: >=200 mg/d L plus symptoms Blood Urea Nitrogen 14 10 - 20 mg/dL [facility] Creatinine 1.24 0.80 - 1.50 mg/dL [facility] Comment: Please note that the pediatric reference intervals supplied above were not validated at [facility]. Results from pediatric patients should be interpreted in conjunction to the patient's age, height and muscle mass. Sodium 140 135 - 145 mmol/L [facility] Potassium 3.7 3.5 - 5.0 mmol/L [facility] Comment: Please note: ??Patients with WBC >100,000 may have falsely elevated Potassium levels. ??For accurate Potassium quantification in these patients send serum separator tube (gold top) for subsequent determinations. ??Contact the Clinical Chemistry Laboratory if there are any questions. Chloride 101 98 - 107 mmol/L [facility] Carbon Dioxide 25 22 - 31 mmol/L [facility] Anion Gap 14 5 - 15 mmol/L [facility] Calcium 8.9 8.5 - 10.5 mg/dL [facility] Est Glomerular Filtration Rate 58(L) >=60 [facility] Comment: This estimated GFR (eGFR) [...] the following links into your internet browser. [email or web address] [email or web address] Blood specimen (specimen) 05/23/2016 5:37 AM EST 05/23/2016 5:51 AM EST Narrative Resulting Agency Comment Spec In Lab Que Amaro MD CHEMISTRY ROCHELLE JENNINGS [facility] [place] [address] * Vancomycin, trough (05/22/2016 7:29 AM EST) Vancomycin, Trough 17.4 mg/L [facility] Comment: Therapeutic range for complicated infections [...] Lab Que Amaro MD CHEMISTRY ROCHELLE JENNINGS [facility] [place] [address] * (ABNORMAL) Differential, Automated (05/22/2016 7:29 AM EST) Neutrophil % 81.7 % [facility] Neutrophil Absolute 8.59(H) 1.70 - 6.10 x10(3)/mc L [facility] Lymph % 11.3 % [facility] Lymphocytes Abs 1.2 0.9 - 3.2 x10(3)/mc L [facility] Monocyte % 6.3 % [facility] Monocyte Abs 0.7 0.3 - 0.9 x10(3)/mc L [facility] Eos % 0.1 % [facility] Eosinophils Abs 0.0 0.0 - 0.4 x10(3)/mc L [facility] Basophil % 0.2 % [facility] Baso Absolute 0.0 0.0 - 0.1 x10(3)/mc L [facility] Immature Gran % 0.40 % [facility] Comment: Immature granulocytes(IG's)percentage and absolute count will include metamyelocytes, myelocytes, and promyelocytes. Blood smears from CBCs yielding IG's will be scanned manually for concordance. If this scan disagrees with the automated IG or if promyelocytes are noted, a manual differential will be performed. Immature Gran Absolute 0.04 0.00 - 0.04 x10(3)/mc L [facility] Blood specimen (specimen) 05/22/2016 7:29 AM EST 05/22/2016 8:02 AM EST Narrative Resulting Agency Comment Spec In Lab Que Amaro MD HEMATOLOGY ORD ERABLES [facility] [place] [address] * (ABNORMAL) Hemogram (05/22/2016 7:29 AM EST) White Blood Cell 10.5(H) 4.0 - 9.5 x10(3)/[facility] Red Blood Cell 3.92(L) 4.58 - 5.54 x10(6)/[facility] Hemoglobin 12.8(L) 13.7 - 16.5 gm/dL [facility] Hematocrit 36.7(L) 40.5 - 48.5 % [facility] Mean Cell Volume 93.6(H) 82.9 - 93.1 fL [facility] Mean Cell Hemoglobin 32.7(H) 27.5 - 32.1 pg [facility] Mean Cell Hemoglobin Concentration 34.9 32.0 - 35.7 gm/dL [facility] Platelet 210 145 - 357 x10(3)/[facility] RDW Standard Deviation 43.1 36.0 - 45.0 [facility] RDW coefficient of variation 12.5 11.4 - 13.8 % [facility] Mean Platelet Volume 8.9 7.6 - 12.9 [facility] NRBC% auto 0.0 % [facility] NRBC Absolute 0.000 0.000 - 0.000 x10(3)/[facility] Blood specimen (specimen) 05/22/2016 7:29 AM EST 05/22/2016 8:02 AM EST Narrative Resulting Agency Comment Spec In Lab Que Amaro MD HEMATOLOGY ORD ERABLES Performing Organization Address [facility]/ZIP Co de Phone Number [facility] [place] [address] * (ABNORMAL) Magnesium (05/22/2016 7:29 AM EST) Magnesium 0.65(L) 0.69 - 1.07 mmol/L [facility] Blood specimen (specimen) 05/22/2016 7:29 AM EST 05/22/2016 8:02 AM EST Narrative Resulting Agency Comment Spec In Lab Que Amaro MD CHEMISTRY ORDE DICK Performing Organization Address [facility] Co de Phone Number [facility] [place] [address] * Phosphorus (05/22/2016 7:29 AM EST) Phosphorus 2.6 2.5 - 4.5 mg/dL [facility] Blood specimen (specimen) 05/22/2016 7:29 AM EST 05/22/2016 8:02 AM EST Narrative Resulting Agency Comment Spec In Lab Que Amaro MD CHEMISTRY ORDE DICK Performing Organization Address [facility] Co de Phone Number [facility] [place] [address] * (ABNORMAL) Basic Metabolic Panel (non-fasting) (05/22/2016 7:29 AM EST) Glucose 159 65 - 199 mg/dL [facility] Comment:Diabetes: >=200 mg/d L plus symptoms Blood Urea Nitrogen 19 10 - 20 mg/dL [facility] [facility] Creatinine 1.37 0.80 - 1.50 mg/dL [facility] Comment: Please note that the pediatric reference intervals supplied above were not validated at [facility]. Results from pediatric patients should be interpreted in conjunction to the patient's age, height and muscle mass. Sodium 137 135 - 145 mmol/L [facility] Potassium 4.0 3.5 - 5.0 mmol/L [facility] Comment: Please note: ??Patients with WBC >100,000 may have falsely elevated Potassium levels. ??For accurate Potassium quantification in these patients send serum separator tube (gold top) for subsequent determinations. ??Contact the Clinical Chemistry Laboratory if there are any questions. Chloride 101 98 - 107 mmol/L [facility] Carbon Dioxide 22 22 - 31 mmol/L [facility] Anion Gap 14 5 - 15 mmol/L [facility] Calcium 8.9 8.5 - 10.5 mg/dL [facility] Est Glomerular Filtration Rate 52(L) >=60 [facility] Comment: This estimated GFR (eGFR) [...] the following links into your internet browser. [email or web address] Blood specimen (specimen) 05/22/2016 7:29 AM EST 05/22/2016 8:02 AM EST Narrative Resulting Agency Comment Spec In Lab Que Amaro MD CHEMISTRY ROCHELLE JENNINGS [facility] [place] [address] * (ABNORMAL) Urinalysis with reflex Culture (05/21/2016 10:52 AM EST) Glucose, Urine Dipstick Negative Negative mg/dL [facility] Protein, Urine Dipstick 100(A) Negative mg/dL [facility] Bilirubin, Urine Dipstick Negative Negative mg/dL [facility] Comment: Clinical correlation required for positive Urine Bilirubin results as false positive may occur with some drugs and drug related products. If a false positive is suspected a serum total bilirubin should be considered if clinically indicated. Urobilinogen, Urine Dipstick Normal Normal mg/dL [facility] pH, Urn (dipstick) 6.0 5.0 - 8.0 [facility] Blood, Urine Dipstick Large(A) Negative mg/dL [facility] Ketone, Urine Dipstick Negative Negative mg/dL [facility] Nitrite, Urine Dipstick Negative Negative [facility] Leukocytes, Urine Dipstick Large(A) Negative [facility] Appearance, Urine Dipstick Clear Clear [facility] Specific [place] Urine Automated 1.021 1.002 - 1.030 [facility] Color, Urine Dipstick Yellow Yellow [facility] RBC, Urine 33(H) 0 - 3 /HPF [facility] WBC, Urine 25(H) 0 - 3 /HPF [facility] Bacteria, Urine Rare(A) None /HPF [facility] Squamous Epithelial Cells, Urine <1 <=4 /HPF [facility] Reflex to Culture Dup Culture [facility] Urine specimen obtained by clean catch procedure (specimen) 05/21/2016 10:52 AM EST 05/21/2016 10:59 AM EST Narrative Resulting Agency Comment Spec In Lab Que Amaro MD URINE ORDERABL ES [facility] [place] [address] * Urine culture Nephrostomy Urine (05/21/2016 10:51 AM EST) Urine Culture No growth (Less than 1,000 cfu/ml). [facility] Urine specimen obtained by clean catch procedure (specimen) 05/21/2016 10:51 AM EST 05/22/2016 4:32 PM EST Narrative Resulting Agency Comment Spec In Lab Que Amaro MD MICROBIOLOGY - GENERAL ORDERABLES Performing Organization Address [facility]/ZIP Co de Phone Number [facility] [place] [address] * Tacrolimus level (05/21/2016 7:52 AM EST) Tacrolimus 6.6 ng/mL [facility] Comment: Trough therapeutic: ??5-15 ng/mL Performed by ultra-performance liquid chromatography tandem mass spectrometry (UPLCMS/MS). Blood specimen (specimen) 05/21/2016 7:52 AM EST 05/21/2016 10:42 AM EST Narrative Resulting Agency Comment Spec In Lab Que Amaro MD CHEMISTRY ORDE RABLES Performing Organization Address [facility] Co de Phone Number [facility] [place] [address] * XR Abdomen 1 view (Generic) (05/21/2016 [...] 5:53 AM EST) Neutrophil % 90.9 % [facility] Neutrophil Absolute 10.31(H) 1.70 - 6.10 x10(3)/ L [facility] Lymph % 4.5 % [facility] Lymphocytes Abs 0.5(L) 0.9 - 3.2 x10(3)/ L [facility] Monocyte % 4.0 % [facility] Monocyte Abs 0.4 0.3 - 0.9 x10(3)/ L [facility] Eos % 0.0 % [facility] Eosinophils Abs 0.0 0.0 - 0.4 x10(3)/[facility] Basophil % 0.2 % [facility] Baso Absolute 0.0 0.0 - 0.1 x10(3)/mc L [facility] Immature Gran % 0.40 % [facility] Comment: Immature granulocytes(IG's)percentage and absolute count will include metamyelocytes, myelocytes, and promyelocytes. Blood smears from CBCs yielding IG's will be scanned manually for concordance. If this scan disagrees with the automated IG or if promyelocytes are noted, a manual differential will be performed. Immature Gran Absolute 0.04 0.00 - 0.04 x10(3)/ L [facility] Blood specimen (specimen) 05/21/2016 5:53 AM EST 05/21/2016 6:15 AM EST Narrative Resulting Agency Comment Spec In Lab Que Amaro MD HEMATOLOGY ORD ERABLES [facility] [place] [address] * (ABNORMAL) Hemogram (05/21/2016 5:53 AM EST) White Blood Cell 11.3(H) 4.0 - 9.5 x10(3)/mc L [facility] Red Blood Cell 4.15(L) 4.58 - 5.54 x10(6)/mc L [facility] Hemoglobin 13.5(L) 13.7 - 16.5 gm/dL [facility] Hematocrit 37.8(L) 40.5 - 48.5 % [facility] Mean Cell Volume 91.1 82.9 - 93.1 fL [facility] Mean Cell Hemoglobin 32.5(H) 27.5 - 32.1 pg [facility] Mean Cell Hemoglobin Concentration 35.7 32.0 - 35.7 gm/dL [facility] Platelet 222 145 - 357 x10(3)/mc L [facility] RDW Standard Deviation 40.7 36.0 - 45.0 [facility] RDW coefficient of variation 12.2 11.4 - 13.8 % [facility] Mean Platelet Volume 8.8 7.6 - 12.9 fL [facility] NRBC% auto 0.0 % [facility] NRBC Absolute 0.000 0.000 - 0.000 x10(3)/mc L [facility] Blood specimen (specimen) 05/21/2016 5:53 AM EST 05/21/2016 6:15 AM EST Narrative Resulting Agency Comment Spec In Lab Que Amaro MD HEMATOLOGY ORD ERABLES [facility] [place] [address] * (ABNORMAL) Magnesium (05/21/2016 5:53 AM EST) Magnesium 0.51(L) 0.69 - 1.07 mmol/L [facility] Blood specimen (specimen) 05/21/2016 5:53 AM EST 05/21/2016 6:15 AM EST Narrative Resulting Agency Comment Spec In Lab Que Amaro MD CHEMISTRY ORDE [email or web address] Performing Organization Address [facility]/ZIP Co de Phone Number [facility] [place] [address] * (ABNORMAL) Phosphorus (05/21/2016 5:53 AM EST) [facility] Phosphorus 2.4(L) 2.5 - 4.5 mg/dL [facility] Blood specimen (specimen) 05/21/2016 5:53 AM EST 05/21/2016 6:15 AM EST Narrative Resulting Agency Comment Spec In Lab Que Amaro MD CHEMISTRY ORDE [email or web address] Performing Organization Address [facility] Co de Phone Number [facility] [place] [address] * (ABNORMAL) Basic Metabolic Panel (non-fasting) (05/21/2016 5:53 AM EST) Pathologist [facility] Glucose 269(H) 65 - 199 mg/dL [facility] Comment:Diabetes: >=200 mg/d L plus symptoms Blood Urea Nitrogen 17 10 - 20 mg/dL [facility] Creatinine 1.27 0.80 - 1.50 mg/dL [facility] Comment: Please note that the pediatric reference intervals supplied above were not validated at [facility]. Results from pediatric patients should be interpreted in conjunction to the patient's age, height and muscle mass. Sodium 136 135 - 145 mmol/L [facility] Potassium 4.5 3.5 - 5.0 mmol/L [facility] Comment: Please note: ??Patients with WBC >100,000 may have falsely elevated Potassium levels. ??For accurate Potassium quantification in these patients send serum separator tube (gold top) for subsequent determinations. ??Contact the Clinical Chemistry Laboratory if there are any questions. Chloride 101 98 - 107 mmol/L [facility] Carbon Dioxide 18(L) 22 - 31 mmol/L [facility] Anion Gap 17(H) 5 - 15 mmol/L [facility] Calcium 8.4(L) 8.5 - 10.5 mg/dL [facility] Est Glomerular Filtration Rate 57(L) >=60 [facility] Comment: This estimated GFR (eGFR) [...] the following links into your internet browser. [email or web address] [email or web address] Blood specimen (specimen) 05/21/2016 5:53 AM EST 05/21/2016 6:15 AM EST Narrative Resulting Agency Comment Spec In Lab Que Amaro MD CHEMISTRY ROCHELLE JENNINGS [facility] [place] Organization Address City/State/[facility] Co de Phone Number [facility] [place] [address] * US Renal Transplant Left (05/20/2016 10:18 [...] 10:15 PM EST) Neutrophil % 92.5 % [facility] Neutrophil Absolute 9.41(H) 1.70 - 6.10 x10(3)/mc L [facility] Lymph % 4.3 % [facility] Lymphocytes Abs 0.4(L) 0.9 - 3.2 x10(3)/mc L [facility] Monocyte % 2.3 % [facility] Monocyte Abs 0.2(L) 0.3 - 0.9 x10(3)/mc L [facility] Eos % 0.1 % [facility] Eosinophils Abs 0.0 0.0 - 0.4 x10(3)/mc L [facility] Basophil % 0.3 % [facility] Baso Absolute 0.0 0.0 - 0.1 x10(3)/mc L [facility] Immature Gran % 0.50 % [facility] Comment: Immature granulocytes(IG's)percentage and absolute count will include metamyelocytes, myelocytes, and promyelocytes. Blood smears from CBCs yielding IG's will be scanned manually for concordance. If this scan disagrees with the automated IG or if promyelocytes are noted, a manual differential will be performed. Immature Gran Absolute 0.05(H) 0.00 - 0.04 x10(3)/mc L [facility] Blood specimen (specimen) 05/20/2016 10:15 PM EST 05/20/2016 10:25 PM EST Narrative Resulting Agency Comment Spec In Lab Que Amaro MD HEMATOLOGY ORD ERABLES [facility] [place] [address] * (ABNORMAL) Hemogram (05/20/2016 10:15 PM EST) White Blood Cell 10.2(H) 4.0 - 9.5 x10(3)/mc L [facility] Red Blood Cell 4.36(L) 4.58 - 5.54 x10(6)/mc L [facility] Hemoglobin 13.9 13.7 - 16.5 gm/dL [facility] Hematocrit 40.6 40.5 - 48.5 % [facility] Mean Cell Volume 93.1 82.9 - 93.1 fL [facility] Mean Cell Hemoglobin 31.9 27.5 - 32.1 pg [facility] Mean Cell Hemoglobin Concentration 34.2 32.0 - 35.7 gm/dL [facility] Platelet 214 145 - 357 x10(3)/mc L [facility] RDW Standard Deviation 42.1 36.0 - 45.0 [facility] RDW coefficient of variation 12.2 11.4 - 13.8 % [facility] Mean Platelet Volume 8.7 7.6 - 12.9 fL [facility] NRBC% auto 0.0 % [facility] NRBC Absolute 0.000 0.000 - 0.000 x10(3)/mc L [facility] Blood specimen (specimen) 05/20/2016 10:15 PM EST 05/20/2016 10:25 PM EST Narrative Resulting Agency Comment Spec In Lab Que Amaro MD HEMATOLOGY ORD ERABLES Performing Organization Address City/[facility]/ZIP Co de Phone Number [facility] [place] [address] * Lactate, whole blood, send to lab (05/20/2016 10:15 PM EST) Lactate WB 1.4 0.5 - 2.2 mmol/L [facility] Blood specimen (specimen) 05/20/2016 10:15 PM EST 05/20/2016 10:25 PM EST Narrative Resulting Agency Comment Spec In Lab Que Amaro MD CHEMISTRY ORDBhargav JENNINGS Performing Organization Address [facility] Co de Phone Number [facility] [place] [address] * Phosphorus (05/20/2016 10:15 PM EST) Phosphorus 3.0 2.5 - 4.5 mg/dL [facility] Blood specimen (specimen) 05/20/2016 10:15 PM EST 05/20/2016 10:25 PM EST Narrative Resulting Agency Comment Spec In Lab Que Amaro MD CHEMISTRY ORDE RABLENORE Performing Organization Address City/[facility]/ZIP Co de Phone Number [facility] [place] [address] * (ABNORMAL) Magnesium (05/20/2016 10:15 PM EST) Magnesium 0.51(L) 0.69 - 1.07 mmol/L [facility] Blood specimen (specimen) 05/20/2016 10:15 PM EST 05/20/2016 10:25 PM EST Narrative Resulting Agency Comment Spec In Lab Que Amaro MD CHEMISTRY ROCHELLE JENNINGS [facility] [place] [address] * (ABNORMAL) BMP w/fasting Glucose (05/20/2016 10:15 PM EST) Glucose Fasting 254(H) 65 - 99 mg/dL [facility] Comment: ?Fasting* Glucose [...] of Diabetes Mellitus, Position Statement from the [employer]. ??Diabetes Care, Volume 33, Supplement 1, Jul 2009 Blood Urea Nitrogen 16 10 - 20 mg/dL [facility] Creatinine 1.21 0.80 - 1.50 mg/dL [facility] Comment: Please note that the pediatric reference intervals supplied above were not validated at [facility]. Results from pediatric patients should be interpreted in conjunction to the patient's age, height and muscle mass. Sodium 138 135 - 145 mmol/L [facility] Potassium 4.3 3.5 - 5.0 mmol/L [facility] Comment: Please note: ??Patients with WBC >100,000 may have falsely elevated Potassium levels. ??For accurate Potassium quantification in these patients send serum separator tube (gold top) for subsequent determinations. ??Contact the Clinical Chemistry Laboratory if there are any questions. Chloride 104 98 - 107 mmol/L [facility] Carbon Dioxide 20(L) 22 - 31 mmol/L [facility] Anion Gap 14 5 - 15 mmol/L [facility] Calcium 8.4(L) 8.5 - 10.5 mg/dL [facility] Est Glomerular Filtration Rate 60 >=60 [facility] Comment: This estimated GFR (eGFR) [...] the following links into your internet browser. [email or web address] [email or web address] [email or web address] Blood specimen (specimen) 05/20/2016 10:15 PM EST 05/20/2016 10:25 PM EST Narrative Resulting Agency Comment Spec In Lab Que Amaro MD CHEMISTRY ORDE RABLES Performing Organization Address City/[facility]/ZIP Co de Phone Number [facility] [place] [address] * Specimen to Pathology (surgical or derm) (05/20/2016 7:38 PM EST) AP Specimen 05/20/2016 7:38 PM EST 05/20/2016 7:38 PM EST Narrative [facility] - 05/20/2016 7:38 PM EST Specimen requisition ordered. ??Separate Pathology report to follow Que Amaro MD PATHOLOGY/[place] [address] * (ABNORMAL) POCT Glucose (05/20/2016 7:32 PM EST) Glucose, POC 204(H) 65 - 199 mg/dL [facility] Comment: Supplemental ranges: <140 mg/dL before meals <180 mg/dL all other times of the day Blood specimen (specimen) 05/20/2016 7:32 PM EST 05/20/2016 7:32 PM EST Que Amaro MD POINT OF CARE TEST ORDERABLES Performing Organization Address [facility] Phone Number [facility] [place] [address] * (ABNORMAL) POCT Glucose (05/20/2016 7:30 PM EST) Glucose, POC 220(H) 65 - 199 mg/dL [facility] Comment: Supplemental ranges: <140 mg/dL before meals <180 mg/dL all other times of the day Blood specimen (specimen) 05/20/2016 7:30 PM EST 05/20/2016 7:30 PM EST Que Amaro MD POINT OF CARE TEST ORDERABLES Performing Organization Address [facility] Phone Number [facility] [place] [address] * Specimen to Pathology (surgical or derm) (05/20/2016 7:25 PM EST) AP Specimen 05/20/2016 7:25 PM EST 05/20/2016 7:25 PM EST Narrative [facility] - 05/20/2016 7:25 PM EST Specimen requisition ordered. ??Separate Pathology report to follow Que Amaro MD PATHOLOGY/CYTO LOGY ORDERABLES Performing Organization Address [facility] de Phone Number [facility] [place] [address] * Surgical Pathology Report (05/20/2016 7:23 PM EST) Final Diagnosis [id number] ?Location: [facility]; [facility]; A The signing pathologist has (i) examined the relevant preparation(s) for the specimen(s) and (ii) rendered or confirmed the diagnosis(es). . 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 ?2. No evidence of viral inclusions. B - [place] left ureter: ?1. Benign ureter. ?2. No evidence of viral inclusions. CR-0 Electronically signed by: ??Nba GERBER, Judson Dougherty Verified: ??05/23/2016 ?Pathologist ADDITIONAL STUDIES Formalin-fixed, paraffin-embedded tissue sections are studied using the B-SA system technique with appropriate positive and negative [...] - Left transplant kidney ureter B - [place] left ureter Clinical History: Left ureteral stricture [...] central cross- sections. ??(R2) B - ??Labeled/Fixative: [place] left ureter, fresh. Quantity/Size: Single, 8.2 x 0.4 x 0.4 cm. Tissue Description: Unoriented segment of ureter. ??The wall averages 0.2 cm in thickness. there is a stellate lumen. ??The mucosa is glistening pink-oro. . SPECIMEN PROCESSING Sections/Processing: (1) Sections from the ends of the specimen; (2) additional central cross sections. ??(R2) ??ejr 05/23/2016 9:45 AM EST [facility] URETERIC STRUCTURE / Unknown 05/20/2016 7:23 PM EST 05/20/2016 7:23 PM EST URETERIC STRUCTURE / Unknown 05/20/2016 7:23 PM EST 05/20/2016 7:23 PM EST Que Amaro MD PATHOLOGY/CYTO LOGY ORDERABLES Performing Organization Address [facility] [place] [address] * XR Fluoro No Rad <1Hr (05/20/2016 1:59 PM EST) Narrative RAD - 05/20/2016 1:59 PM EST This order does not need a radiologist interpretation. ?? Que Amaro MD IMG FLUORO ORD ERABLES Performing Organization Address [facility] de Phone Number [place], [place] * Differential, Automated (05/20/2016 5:47 AM EST) Neutrophil % 72.4 % [facility] Neutrophil Absolute 5.83 1.70 - 6.10 x10(3)/[facility] Lymph % 15.8 % [facility] Lymphocytes Abs 1.3 0.9 - 3.2 x10(3)/[facility] Monocyte % 6.1 % [facility] Monocyte Abs 0.5 0.3 - 0.9 x10(3)/[facility] Eos % 4.1 % [facility] Eosinophils Abs 0.3 0.0 - 0.4 x10(3)/[facility] Basophil % 1.1 % [facility] Baso Absolute 0.1 0.0 - 0.1 x10(3)/[facility] Immature Gran % 0.50 % [facility] Comment: Immature granulocytes(IG's)percentage and absolute count will include metamyelocytes, myelocytes, and promyelocytes. Blood smears from CBCs yielding IG's will be scanned manually for concordance. If this scan disagrees with the automated IG or if promyelocytes are noted, a manual differential will be performed. Immature Gran Absolute 0.04 0.00 - 0.04 x10(3)/[facility] Blood specimen (specimen) 05/20/2016 5:47 AM EST 05/20/2016 5:58 AM EST Narrative Resulting Agency Comment Spec In Lab Que Amaro MD HEMATOLOGY ORD ERABLES [facility] [place] [address] * (ABNORMAL) Hemogram (05/20/2016 5:47 AM EST) White Blood Cell 8.0 4.0 - 9.5 x10(3)/mc L [facility] Red Blood Cell 4.41(L) 4.58 - 5.54 x10(6)/mc L [facility] Hemoglobin 14.1 13.7 - 16.5 gm/dL [facility] Hematocrit 40.0(L) 40.5 - 48.5 % [facility] Mean Cell Volume 90.7 82.9 - 93.1 fL [facility] Mean Cell Hemoglobin 32.0 27.5 - 32.1 pg [facility] Mean Cell Hemoglobin Concentration 35.3 32.0 - 35.7 gm/dL [facility] Platelet 214 145 - 357 x10(3)/mc L [facility] RDW Standard Deviation 39.4 36.0 - 45.0 fL [facility] RDW coefficient of variation 11.9 11.4 - 13.8 % [facility] Mean Platelet Volume 8.6 7.6 - 12.9 fL [facility] NRBC% auto 0.0 % [facility] NRBC Absolute 0.000 0.000 - 0.000 x10(3)/mc L [facility] Blood specimen (specimen) 05/20/2016 5:47 AM EST 05/20/2016 5:58 AM EST Narrative Resulting Agency Comment Spec In Lab Que Amaro MD HEMATOLOGY ORD ERABLES Performing Organization Address City/[facility]/ZIP Co de Phone Number [facility] [place] [address] * (ABNORMAL) Magnesium (05/20/2016 5:47 AM EST) Magnesium 0.55(L) 0.69 - 1.07 mmol/L [facility] Blood specimen (specimen) 05/20/2016 5:47 AM EST 05/20/2016 5:58 AM EST Narrative Resulting Agency Comment Spec In Lab Que Amaro MD CHEMISTRY ROCHELLE JENNINGS Performing Organization Address [facility] Co de Phone Number [facility] [place] [address] * (ABNORMAL) Phosphorus (05/20/2016 5:47 AM EST) Phosphorus 2.4(L) 2.5 - 4.5 mg/dL [facility] Blood specimen (specimen) 05/20/2016 5:47 AM EST 05/20/2016 5:58 AM EST Narrative Resulting Agency Comment Spec In Lab Que Amaro MD CHEMISTRY ROCHELLE JENNINGS Performing Organization Address City/[facility]/ZIP Co de Phone Number [facility] [place] [address] * Basic Metabolic Panel (non-fasting) (05/20/2016 5:47 AM EST) Glucose 150 65 - 199 mg/dL [facility] Comment:Diabetes: >=200 mg/d L plus symptoms Blood Urea Nitrogen 12 10 - 20 mg/dL [facility] Creatinine 1.14 0.80 - 1.50 mg/dL [facility] Comment: Please note that the pediatric reference intervals supplied above were not validated at [facility]. Results from pediatric patients should be interpreted in conjunction to the patient's age, height and muscle mass. Sodium 138 135 - 145 mmol/L [facility] Potassium 3.5 3.5 - 5.0 mmol/L [facility] Comment: Please note: ??Patients with WBC >100,000 may have falsely elevated Potassium levels. ??For accurate Potassium quantification in these patients send serum separator tube (gold top) for subsequent determinations. ??Contact the Clinical Chemistry Laboratory if there are any questions. Chloride 100 98 - 107 mmol/L [facility] Carbon Dioxide 24 22 - 31 mmol/L [facility] Anion Gap 14 5 - 15 mmol/L [facility] Calcium 9.0 8.5 - 10.5 mg/dL [facility] Est Glomerular Filtration Rate >60 >=60 [facility] Comment: This estimated GFR (eGFR) [...] the following links into your internet browser. [email or web address] Blood specimen (specimen) 05/20/2016 5:47 AM EST 05/20/2016 5:58 AM EST Narrative Resulting Agency Comment Spec In Lab Que Amaro MD CHEMISTRY ROCHELLE JENNINGS [facility] [place] Organization Address City/State/ZIP Co de Phone Number [facility] [place] [address] * Tacrolimus level (05/19/2016 8:00 AM EST) Tacrolimus 8.1 ng/mL [facility] Comment: Trough therapeutic: ??5-15 ng/mL Performed by ultra-performance liquid chromatography tandem mass spectrometry (UPLCMS/MS). Blood specimen (specimen) 05/19/2016 8:00 AM EST 05/19/2016 10:28 AM EST Narrative Resulting Agency Comment Spec In Lab Que Amaro MD CHEMISTRY ORDE RABLES Performing Organization Address [facility] Co de Phone Number [facility] [place] [address] * Antibody screen (05/19/2016 4:17 AM EST) Ab Screen Interp Negative [facility] Expires at [id number] on: 05/22/2016 [facility] Blood specimen (specimen) 05/19/2016 4:17 AM EST 05/19/2016 4:33 AM EST Narrative Resulting Agency Comment Spec In Lab Que Amaro MD BLOOD BANK LAB ORDERABLES Performing Organization Address [facility] Co de Phone Number [facility] [place] [address] * ABO/Rh Typing (05/19/2016 4:17 AM EST) ABORH Type AB Pos [facility] Blood specimen (specimen) 05/19/2016 4:17 AM EST 05/19/2016 4:33 AM EST Narrative Resulting Agency Comment Spec In Lab Que Amaro MD BLOOD BANK LAB ORDERABLES Performing Organization Address [facility] Co de Phone Number [facility] [place] [address] * Prothrombin Time (05/19/2016 4:17 AM EST) Prothrombin Time 13.3 12.0 - 15.0 sec [facility] Comment: An INR [...] International Normalization Ratio 1.0 0.9 - 1.1 [facility] Blood specimen (specimen) 05/19/2016 4:17 AM EST 05/19/2016 4:35 AM EST Narrative Resulting Agency Comment Spec In Lab Que Amaro MD HEMATOLOGY ORD ERABLES Performing Organization Address City/State/[facility] Co de Phone Number [facility] [place] [address] * Differential, Automated (05/19/2016 4:17 AM EST) Pathologist [facility] Neutrophil % 69.8 % [facility] Neutrophil Absolute 5.19 1.70 - 6.10 x10(3)/[facility] Lymph % 18.5 % [facility] Lymphocytes Abs 1.4 0.9 - 3.2 x10(3)/[facility] Monocyte % 6.2 % [facility] Monocyte Abs 0.5 0.3 - 0.9 x10(3)/[facility] Eos % 3.9 % [facility] Eosinophils Abs 0.3 0.0 - 0.4 x10(3)/[facility] Basophil % 1.1 % [facility] Baso Absolute 0.1 0.0 - 0.1 x10(3)/[facility] Immature Gran % 0.50 % [facility] Comment: Immature granulocytes(IG's)percentage and absolute count will include metamyelocytes, myelocytes, and promyelocytes. Blood smears from CBCs yielding IG's will be scanned manually for concordance. If this scan disagrees with the automated IG or if promyelocytes are noted, a manual differential will be performed. Immature Gran Absolute 0.04 0.00 - 0.04 x10(3)/mcL [facility] Blood specimen (specimen) 05/19/2016 4:17 AM EST 05/19/2016 4:35 AM EST Narrative Resulting Agency Comment Spec In Lab Que Amaro MD HEMATOLOGY ORD ERABLES [facility] [place] [address] * (ABNORMAL) Hemogram (05/19/2016 4:17 AM EST) White Blood Cell 7.4 4.0 - 9.5 x10(3)/mc L [facility] Red Blood Cell 4.43(L) 4.58 - 5.54 x10(6)/mc L [facility] Hemoglobin 14.2 13.7 - 16.5 gm/dL [facility] Hematocrit 40.2(L) 40.5 - 48.5 % [facility] Mean Cell Volume 90.7 82.9 - 93.1 fL [facility] Mean Cell Hemoglobin 32.1 27.5 - 32.1 pg [facility] Mean Cell Hemoglobin Concentration 35.3 32.0 - 35.7 gm/dL [facility] Platelet 192 145 - 357 x10(3)/mc L [facility] RDW Standard Deviation 39.8 36.0 - 45.0 [facility] RDW coefficient of variation 11.9 11.4 - 13.8 % [facility] Mean Platelet Volume 8.9 7.6 - 12.9 [facility] NRBC% auto 0.0 % [facility] NRBC Absolute 0.000 0.000 - 0.000 x10(3)/mc L [facility] Blood specimen (specimen) 05/19/2016 4:17 AM EST 05/19/2016 4:35 AM EST Narrative Resulting Agency Comment Spec In Lab Que Amaro MD HEMATOLOGY ORD ERABLES Performing Organization Address [facility] Co de Phone Number [facility] [place] [address] * (ABNORMAL) Magnesium (05/19/2016 4:17 AM EST) Magnesium 0.68(L) 0.69 - 1.07 mmol/L [facility] Blood specimen (specimen) 05/19/2016 4:17 AM EST 05/19/2016 4:35 AM EST Narrative Resulting Agency Comment Spec In Lab Que Amaro MD CHEMISTRY ORDBhargav JENNINGS Performing Organization Address [facility] de Phone Number [facility] [place] [address] * (ABNORMAL) Phosphorus (05/19/2016 4:17 AM EST) Phosphorus 2.4(L) 2.5 - 4.5 mg/dL [facility] Blood specimen (specimen) 05/19/2016 4:17 AM EST 05/19/2016 4:35 AM EST Narrative Resulting Agency Comment Spec In Lab Que Amaro MD CHEMISTRY ORDBhargav JENNINGS Performing Organization Address [facility] Co de Phone Number [facility] [place] [address] * (ABNORMAL) Basic Metabolic Panel (non-fasting) (05/19/2016 4:17 AM EST) Glucose 166 65 - 199 mg/dL [facility] Comment:Diabetes: >=200 mg/d L plus symptoms Blood Urea Nitrogen 11 10 - 20 mg/dL [facility] Creatinine 1.09 0.80 - 1.50 mg/dL [facility] Comment: Please note that the pediatric reference intervals supplied above were not validated at [facility]. Results from pediatric patients should be interpreted in conjunction to the patient's age, height and muscle mass. Sodium 140 135 - 145 mmol/L [facility] Potassium 3.9 3.5 - 5.0 mmol/L [facility] Comment: Please note: ??Patients with WBC >100,000 may have falsely elevated Potassium levels. ??For accurate Potassium quantification in these patients send serum separator tube (gold top) for subsequent determinations. ??Contact the Clinical Chemistry Laboratory if there are any questions. Chloride 99 98 - 107 mmol/L [facility] Carbon Dioxide 25 22 - 31 mmol/L [facility] Anion Gap 16(H) 5 - 15 mmol/L [facility] Calcium 9.0 8.5 - 10.5 mg/dL [facility] Est Glomerular Filtration Rate >60 >=60 [facility] Comment: This estimated GFR (eGFR) [...] the following links into your internet browser. [email or web address] Blood specimen (specimen) 05/19/2016 4:17 AM EST 05/19/2016 4:35 AM EST Narrative Resulting Agency Comment Spec In Lab Que Amaro MD CHEMISTRY ROCHELLE JENNINGS [facility] [place] [address] * Differential, Automated (05/18/2016 5:54 AM EST) Neutrophil % 69.2 % [facility] Neutrophil Absolute 5.48 1.70 - 6.10 x10(3)/[facility] Lymph % 18.5 % [facility] Lymphocytes Abs 1.5 0.9 - 3.2 x10(3)/[facility] Monocyte % 6.6 % [facility] Monocyte Abs 0.5 0.3 - 0.9 x10(3)/[facility] Eos % 4.3 % [facility] Eosinophils Abs 0.3 0.0 - 0.4 x10(3)/[facility] Basophil % 1.1 % [facility] Baso Absolute 0.1 0.0 - 0.1 x10(3)/[facility] Immature Gran % 0.30 % [facility] Comment: Immature granulocytes(IG's)percentage and absolute count will include metamyelocytes, myelocytes, and promyelocytes. Blood smears from CBCs yielding IG's will be scanned manually for concordance. If this scan disagrees with the automated IG or if promyelocytes are noted, a manual differential will be performed. Immature Gran Absolute 0.02 0.00 - 0.04 x10(3)/[facility] Blood specimen (specimen) 05/18/2016 5:54 AM EST 05/18/2016 6:00 AM EST Narrative Resulting Agency Comment Spec In Lab Que Amaro MD HEMATOLOGY ORD ERABLES [facility] [place] [address] * (ABNORMAL) Hemogram (05/18/2016 5:54 AM EST) White Blood Cell 7.9 4.0 - 9.5 x10(3)/ L [facility] Red Blood Cell 4.51(L) 4.58 - 5.54 x10(6)/ L [facility] Hemoglobin 14.4 13.7 - 16.5 gm/dL [facility] Hematocrit 40.5 40.5 - 48.5 % [facility] Mean Cell Volume 89.8 82.9 - 93.1 fL [facility] Mean Cell Hemoglobin 31.9 27.5 - 32.1 pg [facility] Mean Cell Hemoglobin Concentration 35.6 32.0 - 35.7 gm/dL [facility] Platelet 205 145 - 357 x10(3)/mc L [facility] RDW Standard Deviation 39.8 36.0 - 45.0 [facility] RDW coefficient of variation 12.1 11.4 - 13.8 % [facility] Mean Platelet Volume 8.7 7.6 - 12.9 fL [facility] NRBC% auto 0.0 % [facility] NRBC Absolute 0.000 0.000 - 0.000 x10(3)/mc L [facility] Blood specimen (specimen) 05/18/2016 5:54 AM EST 05/18/2016 6:00 AM EST Narrative Resulting Agency Comment Spec In Lab Que Amaro MD HEMATOLOGY ORD ERABLES Performing Organization Address City/[facility]/ZIP Co de Phone Number [facility] [place] [address] * (ABNORMAL) Magnesium (05/18/2016 5:54 AM EST) Magnesium 0.68(L) 0.69 - 1.07 mmol/L [facility] Blood specimen (specimen) 05/18/2016 5:54 AM EST 05/18/2016 6:00 AM EST Narrative Resulting Agency Comment Spec In Lab Que Amaro MD CHEMISTRY ORDE RABLENORE Performing Organization Address City/[facility]/ZIP Co de Phone Number [facility] [place] [address] * Phosphorus (05/18/2016 5:54 AM EST) Phosphorus 2.8 2.5 - 4.5 mg/dL [facility] Blood specimen (specimen) 05/18/2016 5:54 AM EST 05/18/2016 6:00 AM EST Narrative Resulting Agency Comment Spec In Lab Que Amaro MD CHEMISTRY ROCHELLE JENNINGS [facility] [place] [address] * Basic Metabolic Panel (non-fasting) (05/18/2016 5:54 AM EST) Glucose 168 65 - 199 mg/dL [facility] Comment:Diabetes: >=200 mg/d L plus symptoms Blood Urea Nitrogen 11 10 - 20 mg/dL [facility] Creatinine 1.15 0.80 - 1.50 mg/dL [facility] Comment: Please note that the pediatric reference intervals supplied above were not validated at [facility]. Results from pediatric patients should be interpreted in conjunction to the patient's age, height and muscle mass. Sodium 139 135 - 145 mmol/L [facility] Potassium 3.5 3.5 - 5.0 mmol/L [facility] Comment: Please note: ??Patients with WBC >100,000 may have falsely elevated Potassium levels. ??For accurate Potassium quantification in these patients send serum separator tube (gold top) for subsequent determinations. ??Contact the Clinical Chemistry Laboratory if there are any questions. Chloride 98 98 - 107 mmol/L [facility] Carbon Dioxide 27 22 - 31 mmol/L [facility] Anion Gap 14 5 - 15 mmol/L [facility] Calcium 9.1 8.5 - 10.5 mg/dL [facility] Est Glomerular Filtration Rate >60 >=60 [facility] Comment: This estimated GFR (eGFR) [...] the following links into your internet browser. [email or web address] Blood specimen (specimen) 05/18/2016 5:54 AM EST 05/18/2016 6:00 AM EST Narrative Resulting Agency Comment Spec In Lab Que Amaro MD CHEMISTRY ROCHELLE JENNINGS Performing Organization Address [facility] de Phone Number [facility] [place] [address] * Vancomycin, trough (05/17/2016 5:35 AM EST) Pathologist [facility] Vancomycin, Trough 16.2 mg/L [facility] Comment: Therapeutic range for complicated [...] MD CHEMISTRY ORDBhargav JENNINGS Performing Organization Address [facility] Co de Phone Number [facility] [place] [address] * Differential, Automated (05/17/2016 5:35 AM EST) Neutrophil % 64.3 % [facility] Neutrophil Absolute 4.39 1.70 - 6.10 x10(3)/[facility] Lymph % 20.2 % [facility] Lymphocytes Abs 1.4 0.9 - 3.2 x10(3)/[facility] Monocyte % 8.3 % [facility] Monocyte Abs 0.6 0.3 - 0.9 x10(3)/[facility] Eos % 5.7 % [facility] Eosinophils Abs 0.4 0.0 - 0.4 x10(3)/[facility] Basophil % 1.2 % [facility] Baso Absolute 0.1 0.0 - 0.1 x10(3)/[facility] Immature Gran % 0.30 % [facility] Comment: Immature granulocytes(IG's)percentage and absolute count will include metamyelocytes, myelocytes, and promyelocytes. Blood smears from CBCs yielding IG's will be scanned manually for concordance. If this scan disagrees with the automated IG or if promyelocytes are noted, a manual differential will be performed. Immature Gran Absolute 0.02 0.00 - 0.04 x10(3)/[facility] Blood specimen (specimen) 05/17/2016 5:35 AM EST 05/17/2016 5:42 AM EST Narrative Resulting Agency Comment Spec In Lab Que Amaro MD HEMATOLOGY ORD ERABLES [facility] [place] [address] * (ABNORMAL) Hemogram (05/17/2016 5:35 AM EST) White Blood Cell 6.8 4.0 - 9.5 x10(3)/mc L [facility] Red Blood Cell 4.38(L) 4.58 - 5.54 x10(6)/mc L [facility] Hemoglobin 14.2 13.7 - 16.5 gm/dL [facility] Hematocrit 39.4(L) 40.5 - 48.5 % [facility] Mean Cell Volume 90.0 82.9 - 93.1 fL [facility] Mean Cell Hemoglobin 32.4(H) 27.5 - 32.1 pg [facility] Mean Cell Hemoglobin Concentration 36.0(H) 32.0 - 35.7 gm/dL [facility] Platelet 213 145 - 357 x10(3)/mc L [facility] RDW Standard Deviation 40.2 36.0 - 45.0 fL [facility] RDW coefficient of variation 12.2 11.4 - 13.8 % [facility] Mean Platelet Volume 8.7 7.6 - 12.9 fL [facility] NRBC% auto 0.0 % [facility] NRBC Absolute 0.000 0.000 - 0.000 x10(3)/mc L [facility] Blood specimen (specimen) 05/17/2016 5:35 AM EST 05/17/2016 5:42 AM EST Narrative Resulting Agency Comment Spec In Lab Que Amaro MD HEMATOLOGY ORD ERABLES [facility] [place] [address] * Magnesium (05/17/2016 5:35 AM EST) Magnesium 0.73 0.69 - 1.07 mmol/L [facility] Blood specimen (specimen) 05/17/2016 5:35 AM EST 05/17/2016 5:42 AM EST Narrative Resulting Agency Comment Spec In Lab Que Amaro MD CHEMISTRY ORDBhargav JENNINGS [facility] [place] [address] * Phosphorus (05/17/2016 5:35 AM EST) Phosphorus 2.9 2.5 - 4.5 mg/dL [facility] Blood specimen (specimen) 05/17/2016 5:35 AM EST 05/17/2016 5:42 AM EST Narrative Resulting Agency Comment Spec In Lab Que Amaro MD CHEMISTRY ROCHELLE JENNINGS [facility] [place] [address] * (ABNORMAL) Basic Metabolic Panel (non-fasting) (05/17/2016 5:35 AM EST) Glucose 164 65 - 199 mg/dL [facility] Comment:Diabetes: >=200 mg/d L plus symptoms Blood Urea Nitrogen 13 10 - 20 mg/dL [facility] Creatinine 1.23 0.80 - 1.50 mg/dL [facility] Comment: Please note that the pediatric reference intervals supplied above were not validated at [facility]. Results from pediatric patients should be interpreted in conjunction to the patient's age, height and muscle mass. Sodium 141 135 - 145 mmol/L [facility] Potassium 3.5 3.5 - 5.0 mmol/L [facility] Comment: Please note: ??Patients with WBC >100,000 may have falsely elevated Potassium levels. ??For accurate Potassium quantification in these patients send serum separator tube (gold top) for subsequent determinations. ??Contact the Clinical Chemistry Laboratory if there are any questions. Chloride 102 98 - 107 mmol/L [facility] Carbon Dioxide 26 22 - 31 mmol/L [facility] Anion Gap 13 5 - 15 mmol/L [facility] Calcium 8.9 8.5 - 10.5 mg/dL [facility] Est Glomerular Filtration Rate 59(L) >=60 [facility] Comment: This estimated GFR (eGFR) [...] the following links into your internet browser. [email or web address] Blood specimen (specimen) 05/17/2016 5:35 AM EST 05/17/2016 5:42 AM EST Narrative Resulting Agency Comment Spec In Lab Que Amaro MD CHEMISTRY ORDBhargav JENNINGS Performing Organization Address [facility] Co de Phone Number [facility] [place] [address] * Tacrolimus level (05/16/2016 8:50 AM EST) Pathologist [facility] Tacrolimus 5.7 ng/mL [facility] Comment: Trough therapeutic: ??5-15 ng/mL Performed by ultra-performance liquid chromatography tandem mass spectrometry (UPLCMS/MS). Blood specimen (specimen) 05/16/2016 8:50 AM EST 05/16/2016 11:43 AM EST Narrative Resulting Agency Comment Spec In Lab Que Amaro MD CHEMISTRY ORDBhargav JENNINGS Performing Organization Address [facility] Co de Phone Number [facility] [place] [address] * Differential, Automated (05/16/2016 6:24 AM EST) Neutrophil % 68.9 % [facility] Neutrophil Absolute 5.15 1.70 - 6.10 x10(3)/[facility] Lymph % 16.7 % [facility] Lymphocytes Abs 1.2 0.9 - 3.2 x10(3)/[facility] Monocyte % 8.2 % [facility] Monocyte Abs 0.6 0.3 - 0.9 x10(3)/[facility] Eos % 4.5 % [facility] Eosinophils Abs 0.3 0.0 - 0.4 x10(3)/[facility] Basophil % 1.3 % [facility] Baso Absolute 0.1 0.0 - 0.1 x10(3)/[facility] Immature Gran % 0.40 % [facility] Comment: Immature granulocytes(IG's)percentage and absolute count will include metamyelocytes, myelocytes, and promyelocytes. Blood smears from CBCs yielding IG's will be scanned manually for concordance. If this scan disagrees with the automated IG or if promyelocytes are noted, a manual differential will be performed. Immature Gran Absolute 0.03 0.00 - 0.04 x10(3)/[facility] Blood specimen (specimen) 05/16/2016 6:24 AM EST 05/16/2016 6:34 AM EST Narrative Resulting Agency Comment Spec In Lab Que Amaro MD HEMATOLOGY ORD ERABLES Performing Organization Address City/State/[facility] Co de Phone Number [facility] [place] [address] * (ABNORMAL) Hemogram (05/16/2016 6:24 AM EST) White Blood Cell 7.5 4.0 - 9.5 x10(3)/[facility] Red Blood Cell 4.52(L) 4.58 - 5.54 x10(6)/ L [facility] Hemoglobin 14.4 13.7 - 16.5 gm/dL [facility] Hematocrit 41.1 40.5 - 48.5 % [facility] Mean Cell Volume 90.9 82.9 - 93.1 fL [facility] Mean Cell Hemoglobin 31.9 27.5 - 32.1 pg [facility] Mean Cell Hemoglobin Concentration 35.0 32.0 - 35.7 gm/dL [facility] Platelet 215 145 - 357 x10(3)/mc L [facility] RDW Standard Deviation 40.2 36.0 - 45.0 fL [facility] RDW coefficient of variation 12.0 11.4 - 13.8 % [facility] Mean Platelet Volume 8.8 7.6 - 12.9 fL [facility] NRBC% auto 0.0 % [facility] NRBC Absolute 0.000 0.000 - 0.000 x10(3)/mc L [facility] Blood specimen (specimen) 05/16/2016 6:24 AM EST 05/16/2016 6:34 AM EST Narrative Resulting Agency Comment Spec In Lab Que Amaro MD HEMATOLOGY ORD ERABLES Performing Organization Address City/[facility]/ZIP Co de Phone Number [facility] [place] [address] * (ABNORMAL) Magnesium (05/16/2016 6:24 AM EST) Magnesium 0.58(L) 0.69 - 1.07 mmol/L [facility] Blood specimen (specimen) 05/16/2016 6:24 AM EST 05/16/2016 6:34 AM EST Narrative Resulting Agency Comment Spec In Lab Que Amaro MD CHEMISTRY ORDBhargav JENNINGS Performing Organization Address [facility] Co de Phone Number [facility] [place] [address] * Phosphorus (05/16/2016 6:24 AM EST) Phosphorus 2.6 2.5 - 4.5 mg/dL [facility] Blood specimen (specimen) 05/16/2016 6:24 AM EST 05/16/2016 6:34 AM EST Narrative Resulting Agency Comment Spec In Lab Que Amaro MD CHEMISTRY ORDBhargav JENNINGS Performing Organization Address City/[facility] Co de Phone Number [facility] [place] [address] * (ABNORMAL) Basic Metabolic Panel (non-fasting) (05/16/2016 6:24 AM EST) Glucose 180 65 - 199 mg/dL [facility] Comment:Diabetes: >=200 mg/d L plus symptoms Blood Urea Nitrogen 11 10 - 20 mg/dL [facility] Creatinine 1.30 0.80 - 1.50 mg/dL [facility] Comment: Please note that the pediatric reference intervals supplied above were not validated at [facility]. Results from pediatric patients should be interpreted in conjunction to the patient's age, height and muscle mass. Sodium 137 135 - 145 mmol/L [facility] Potassium 3.4(L) 3.5 - 5.0 mmol/L [facility] Comment: Please note: ??Patients with WBC >100,000 may have falsely elevated Potassium levels. ??For accurate Potassium quantification in these patients send serum separator tube (gold top) for subsequent determinations. ??Contact the Clinical Chemistry Laboratory if there are any questions. Chloride 100 98 - 107 mmol/L [facility] Carbon Dioxide 24 22 - 31 mmol/L [facility] Anion Gap 13 5 - 15 mmol/L [facility] Calcium 9.0 8.5 - 10.5 mg/dL [facility] Est Glomerular Filtration Rate 55(L) >=60 [facility] Comment: This estimated GFR (eGFR) [...] the following links into your internet browser. http://[employer]/DHnkdep http://[employer]/DHMCnkf Blood specimen (specimen) 05/16/2016 6:24 AM EST 05/16/2016 6:34 AM EST Narrative Resulting Agency Comment Spec In Lab Que Amaro MD CHEMISTRY ROCHELLE JENNINGS [facility] [place] Organization Address City/State/ZIP Co de Phone Number [facility] [place] [address] * Urine culture (05/15/2016 3:04 PM EST) Urine Culture No growth (Less than 100 cfu/ml). [facility] Urine specimen from nephrostomy tube (specimen) 05/15/2016 3:04 PM EST 05/15/2016 4:31 PM EST Narrative Resulting Agency Comment Spec In Lab Que Amaro MD MICROBIOLOGY - GENERAL ORDERABLES [facility] [place] [address] * (ABNORMAL) Urinalysis with reflex Culture (05/15/2016 3:04 PM EST) Glucose, Urine Dipstick Negative Negative mg/dL [facility] Protein, Urine Dipstick Negative Negative mg/dL [facility] Bilirubin, Urine Dipstick Negative Negative mg/dL [facility] Comment: Clinical correlation required for positive Urine Bilirubin results as false positive may occur with some drugs and drug related products. If a false positive is suspected a serum total bilirubin should be considered if clinically indicated. Urobilinogen, Urine Dipstick Normal Normal mg/dL [facility] pH, Urn (dipstick) 7.0 5.0 - 8.0 [facility] Blood, Urine Dipstick Small(A) Negative mg/dL [facility] Ketone, Urine Dipstick Negative Negative mg/dL [facility] Nitrite, Urine Dipstick Negative Negative [facility] Leukocytes, Urine Dipstick Small(A) Negative [facility] Appearance, Urine Dipstick Clear Clear [facility] Specific [place] Urine Automated 1.009 1.002 - 1.030 [facility] Color, Urine Dipstick Straw Yellow [facility] RBC, Urine 9(H) 0 - 3 /HPF [facility] WBC, Urine 10(H) 0 - 3 /HPF [facility] Bacteria, Urine Rare(A) None /HPF [facility] Reflex to Culture Yes [facility] Urine specimen from nephrostomy tube (specimen) 05/15/2016 3:04 PM EST 05/15/2016 3:44 PM EST Narrative Resulting Agency Comment Spec In Lab Que Amaro MD URINE ORDERABL ES Performing Organization Address [facility] Phone Number [facility] [place] [address] * Vancomycin, trough (05/15/2016 5:50 AM EST) Vancomycin, Trough 8.9 mg/L [facility] Comment: Therapeutic range for complicated [...] MD CHEMISTRY ORDE RABLES Performing Organization Address [facility] de Phone Number [facility] [place] [address] * (ABNORMAL) Differential, Automated (05/15/2016 3:15 AM EST) Neutrophil % 72.9 % [facility] Neutrophil Absolute 6.64(H) 1.70 - 6.10 x10(3)/mc L [facility] Lymph % 14.1 % [facility] Lymphocytes Abs 1.3 0.9 - 3.2 x10(3)/mc L [facility] Monocyte % 7.9 % [facility] Monocyte Abs 0.7 0.3 - 0.9 x10(3)/[facility] Eos % 3.7 % [facility] Eosinophils Abs 0.3 0.0 - 0.4 x10(3)/[facility] Basophil % 1.1 % [facility] Baso Absolute 0.1 0.0 - 0.1 x10(3)/[facility] Immature Gran % 0.30 % [facility] Comment: Immature granulocytes(IG's)percentage and absolute count will include metamyelocytes, myelocytes, and promyelocytes. Blood smears from CBCs yielding IG's will be scanned manually for concordance. If this scan disagrees with the automated IG or if promyelocytes are noted, a manual differential will be performed. Immature Gran Absolute 0.03 0.00 - 0.04 x10(3)/[facility] Blood specimen (specimen) 05/15/2016 3:15 AM EST 05/15/2016 3:23 AM EST Narrative Resulting Agency Comment Spec In Lab Que Amaro MD HEMATOLOGY ORD ERABLES [facility] [place] [address] * Hemogram (05/15/2016 3:15 AM EST) White Blood Cell 9.1 4.0 - 9.5 x10(3)/[facility] Red Blood Cell 4.58 4.58 - 5.54 x10(6)/[facility] Hemoglobin 14.7 13.7 - 16.5 gm/dL [facility] Hematocrit 41.3 40.5 - 48.5 % [facility] Mean Cell Volume 90.2 82.9 - 93.1 fL [facility] Mean Cell Hemoglobin 32.1 27.5 - 32.1 pg [facility] Mean Cell Hemoglobin Concentration 35.6 32.0 - 35.7 gm/dL [facility] Platelet 209 145 - 357 x10(3)/[facility] RDW Standard Deviation 40.0 36.0 - 45.0 [facility] RDW coefficient of variation 12.2 11.4 - 13.8 % [facility] Mean Platelet Volume 8.7 7.6 - 12.9 [facility] NRBC% auto 0.0 % [facility] NRBC Absolute 0.000 0.000 - 0.000 x10(3)/[facility] Blood specimen (specimen) 05/15/2016 3:15 AM EST 05/15/2016 3:23 AM EST Narrative Resulting Agency Comment Spec In Lab Que Amaro MD HEMATOLOGY ORD ERABLES Performing Organization Address City/[facility]/ZIP Co de Phone Number [facility] [place] [address] * (ABNORMAL) Magnesium (05/15/2016 3:15 AM EST) Magnesium 0.68(L) 0.69 - 1.07 mmol/L [facility] Blood specimen (specimen) 05/15/2016 3:15 AM EST 05/15/2016 3:23 AM EST Narrative Resulting Agency Comment Spec In Lab Que Amaro MD CHEMISTRY ORDE RABLENORE [facility] [place] [address] * Phosphorus (05/15/2016 3:15 AM EST) Phosphorus 2.9 2.5 - 4.5 mg/dL [facility] Blood specimen (specimen) 05/15/2016 3:15 AM EST 05/15/2016 3:23 AM EST Narrative Resulting Agency Comment Spec In Lab Que Amaro MD CHEMISTRY ROCHELLE JENNINGS [facility] [place] [address] * (ABNORMAL) Basic Metabolic Panel (non-fasting) (05/15/2016 3:15 AM EST) Glucose 162 65 - 199 mg/dL [facility] Comment:Diabetes: >=200 mg/d L plus symptoms Blood Urea Nitrogen 9(L) 10 - 20 mg/dL [facility] Creatinine 1.23 0.80 - 1.50 mg/dL [facility] Comment: Please note that the pediatric reference intervals supplied above were not validated at [facility]. Results from pediatric patients should be interpreted in conjunction to the patient's age, height and muscle mass. Sodium 140 135 - 145 mmol/L [facility] Potassium 3.6 3.5 - 5.0 mmol/L [facility] Comment: Please note: ??Patients with WBC >100,000 may have falsely elevated Potassium levels. ??For accurate Potassium quantification in these patients send serum separator tube (gold top) for subsequent determinations. ??Contact the Clinical Chemistry Laboratory if there are any questions. Chloride 101 98 - 107 mmol/L [facility] Carbon Dioxide 26 22 - 31 mmol/L [facility] Anion Gap 13 5 - 15 mmol/L [facility] Calcium 9.0 8.5 - 10.5 mg/dL [facility] Est Glomerular Filtration Rate 59(L) >=60 [facility] Comment: This estimated GFR (eGFR) [...] the following links into your internet browser. [email or web address] [email or web address] Blood specimen (specimen) 05/15/2016 3:15 AM EST 05/15/2016 3:23 AM EST Narrative Resulting Agency Comment Spec In Lab Que Amaro MD CHEMISTRY ROCHELLE JENNINGS [facility] [place] [address] * XR Chest PA or AP 1 [...] 6:45 AM EST) Neutrophil % 77.5 % [facility] Neutrophil Absolute 7.24(H) 1.70 - 6.10 x10(3)/mc L [facility] Lymph % 11.1 % [facility] Lymphocytes Abs 1.0 0.9 - 3.2 x10(3)/mc L [facility] Monocyte % 8.4 % [facility] Monocyte Abs 0.8 0.3 - 0.9 x10(3)/[facility] Eos % 1.7 % [facility] Eosinophils Abs 0.2 0.0 - 0.4 x10(3)/[facility] Basophil % 0.9 % [facility] Baso Absolute 0.1 0.0 - 0.1 x10(3)/[facility] Immature Gran % 0.40 % [facility] Comment: Immature granulocytes(IG's)percentage and absolute count will include metamyelocytes, myelocytes, and promyelocytes. Blood smears from CBCs yielding IG's will be scanned manually for concordance. If this scan disagrees with the automated IG or if promyelocytes are noted, a manual differential will be performed. Immature Gran Absolute 0.04 0.00 - 0.04 x10(3)/[facility] Blood specimen (specimen) 05/14/2016 6:45 AM EST 05/14/2016 7:06 AM EST Narrative Resulting Agency Comment Spec In Lab Que Amaro MD HEMATOLOGY ORD ERABLES [facility] [place] [address] * (ABNORMAL) Hemogram (05/14/2016 6:45 AM EST) White Blood Cell 9.4 4.0 - 9.5 x10(3)/[facility] Red Blood Cell 4.43(L) 4.58 - 5.54 x10(6)/[facility] Hemoglobin 14.2 13.7 - 16.5 gm/dL [facility] Hematocrit 41.1 40.5 - 48.5 % [facility] Mean Cell Volume 92.8 82.9 - 93.1 fL [facility] Mean Cell Hemoglobin 32.1 27.5 - 32.1 pg [facility] Mean Cell Hemoglobin Concentration 34.5 32.0 - 35.7 gm/dL [facility] Platelet 208 145 - 357 x10(3)/mc L [facility] RDW Standard Deviation 41.6 36.0 - 45.0 fL [facility] RDW coefficient of variation 12.2 11.4 - 13.8 % [facility] Mean Platelet Volume 9.0 7.6 - 12.9 fL [facility] NRBC% auto 0.0 % [facility] NRBC Absolute 0.000 0.000 - 0.000 x10(3)/mc L [facility] Blood specimen (specimen) 05/14/2016 6:45 AM EST 05/14/2016 7:06 AM EST Narrative Resulting Agency Comment Spec In Lab Que Amaro MD HEMATOLOGY ORD ERABLES [facility] [place] [address] * (ABNORMAL) Magnesium (05/14/2016 6:45 AM EST) Magnesium 0.60(L) 0.69 - 1.07 mmol/L [facility] Blood specimen (specimen) 05/14/2016 6:45 AM EST 05/14/2016 7:06 AM EST Narrative Resulting Agency Comment Spec In Lab Que Amaro MD CHEMISTRY ORDE RABLENORE [facility] [place] [address] * (ABNORMAL) Phosphorus (05/14/2016 6:45 AM EST) Phosphorus 2.1(L) 2.5 - 4.5 mg/dL [facility] Blood specimen (specimen) 05/14/2016 6:45 AM EST 05/14/2016 7:06 AM EST Narrative Resulting Agency Comment Spec In Lab Que Amaro MD CHEMISTRY ROCHELLE JENNINGS [facility] [place] [address] * (ABNORMAL) Basic Metabolic Panel (non-fasting) (05/14/2016 6:45 AM EST) Glucose 165 65 - 199 mg/dL [facility] Comment:Diabetes: >=200 mg/d L plus symptoms Blood Urea Nitrogen 12 10 - 20 mg/dL [facility] Creatinine 1.22 0.80 - 1.50 mg/dL [facility] Comment: Please note that the pediatric reference intervals supplied above were not validated at [facility]. Results from pediatric patients should be interpreted in conjunction to the patient's age, height and muscle mass. Sodium 139 135 - 145 mmol/L [facility] Potassium 3.3(L) 3.5 - 5.0 mmol/L [facility] Comment: Please note: ??Patients with WBC >100,000 may have falsely elevated Potassium levels. ??For accurate Potassium quantification in these patients send serum separator tube (gold top) for subsequent determinations. ??Contact the Clinical Chemistry Laboratory if there are any questions. Chloride 100 98 - 107 mmol/L [facility] Carbon Dioxide 25 22 - 31 mmol/L [facility] Anion Gap 14 5 - 15 mmol/L [facility] Calcium 8.8 8.5 - 10.5 mg/dL [facility] Est Glomerular Filtration Rate 59(L) >=60 [facility] Comment: This estimated GFR (eGFR) [...] the following links into your internet browser. http://[employer]/DHnkdep http://[employer]/DHMCnkf Blood specimen (specimen) 05/14/2016 6:45 AM EST 05/14/2016 7:06 AM EST Narrative Resulting Agency Comment Spec In Lab Que Amaro MD CHEMISTRY ROCHELLE JENNINGS Performing Organization Address [facility] de Phone Number [facility] [place] [address] * C. Difficile Screen (05/14/2016 2:30 AM EST) C Diff Interp Negative Negative [facility] Comment: C. diff ??Negative Clostridium [...] - GENER AL ORDERABLES Performing Organization Address [facility] de Phone Number [facility] [place] [address] documented in this encounter Visit Diagnoses Not [...] Given 05/26/2016 8:36 AM EST 81 mg calciTRIol (ROCALTROL) capsule 0.5 mcg 0.5 mcg, Oral, DAILY, First dose on Thu05/14/16 at 0900, Until Discontinued, Routine Given 05/28/2016 8:36 AM EST 0.5 mcg Given 05/27/2016 10:06 AM EST 0.5 mcg Given 05/26/2016 8:37 AM EST 0.5 mcg cephalexin (KEFLEX) capsule 500 mg 500 mg, Oral, 4 TIMES DAILY, 20 doses, First dose on Thu05/24/16 at 0900, Last dose on Thu05/28/16 at 2100, Routine, Indication for (Active or Suspected): Urinary Tract/Pyelonephritis Given 05/28/2016 12:28 PM EST 500 mg Given 05/28/2016 8:36 AM EST 500 mg Given 05/27/2016 11:27 PM EST 500 mg heparin (porcine) subcutaneous injection 5,000 Units 5,000 Units, Subcutaneous, EVERY 12 HOURS SCHEDULED (2 times per day), First dose on Thu05/21/16 at 0000, Until Discontinued, Routine Given 05/21/2016 8:12 PM EST 5,000 Units Given 05/21/2016 8:40 AM EST 5,000 Units Given 05/21/2016 12:16 AM EST 5,000 Units HYDROmorphone (DILAUDID) injection 0.2 mg 0.2 mg, [...] 10:31 AM EST 10 g levothyroxine (SYNTHROID) tablet 100 mcg 100 mcg, Oral, EVERY MORNING, First dose on Thu05/24/16 at 0600, Until Discontinued, Routine Given 05/28/2016 6:13 AM EST 100 mcg Given 05/27/2016 6:10 AM EST 100 mcg Given 05/26/2016 5:03 AM EST 100 mcg meTOPROLOL tartrate (LOPRESSOR) tablet 50 mg 50 mg, Oral, EVERY 12 HOURS SCHEDULED (2 times per day), First dose (after last modification) on Thu05/27/16 at 2100, Until Discontinued, Hold for SBP < 120 or HR < 55bpm, Routine Given 05/28/2016 8:36 AM EST 50 mg Given 05/27/2016 8:14 PM EST 50 mg mycophenolate (CELLCEPT) capsule 250 mg 250 mg, Oral, 2 TIMES DAILY, First dose on Thu05/24/16 at 0900, Until Discontinued, DO NOT CRUSH OR OPEN, Routine Given 05/28/2016 8:37 AM EST 250 mg Given 05/27/2016 8:13 PM EST 250 mg Given 05/27/2016 10:07 AM EST 250 mg oxyCODONE (ROXICODONE) immediate release tablet 10 [...] AM EST 5 mg pantoprazole (PROTONIX) tablet 40 mg 40 mg, Oral, DAILY, First dose on Thu05/25/16 at 0900, Until Discontinued, DO NOT CRUSH OR OPEN Given 05/28/2016 8:37 AM EST 40 mg Given 05/27/2016 10:11 AM EST 40 mg Given 05/26/2016 8:36 AM EST 40 mg senna-docusate (PERICOLACE) 8.6-50 mg per tablet 4 [...] Given 05/27/2016 10:19 AM EST 5 mLs tacrolimus (PROGRAF) capsule 0.5 mg 0.5 mg, [...] Given 05/25/2016 8:43 PM EST 0.4 mg documented in this [...] Christian RN) 0835 (Given - Provider: Lorena Oneal RN) bisacodyl (DULCOLAX) suppository 10 mg (COMPLETED) 10 mg, Rectal, ONCE, 1 dose, On Thu05/26/16 at 1000, Routine 1032 (Given - Provider: Mirian Gambino RN) bisacodyl (DULCOLAX) suppository 10 mg (COMPLETED) 10 mg, Rectal, ONCE, 1 dose, On Thu05/27/16 at 0845, Routine 1024 (Given - Provider: Monique Christian RN) calciTRIol (ROCALTROL) capsule 0.5 mcg 0.5 mcg, Oral, DAILY, First dose on Thu05/14/16 at 0900, Until Discontinued, Routine 0837 (Given - Provider: Mirian Gambino RN) 1006 (Given - Provider: Monique Christian RN) 0836 (Given - Provider: Lorena Oneal, JADEN) cephalexin (KEFLEX) capsule 500 mg 500 mg, [...] Leonardo RN) 0836 (Given - Provider: Lorena Oneal, JADEN)1228 (Given - Provider: Ryan Fuchs RN) heparin [...] at 1615 1601 (Given - Provider: Mirian Gambino, JADEN) hydrALAZINE (APRESOLINE) injection 10 mg (COMPLETED) 10 [...] Christian RN) 0839 (Given - Provider: Lorena Oneal, JADEN) levothyroxine (SYNTHROID) tablet 100 mcg 100 [...] Moy RN) 0836 (Given - Provider: Lorena Oneal, JADEN) mycophenolate (CELLCEPT) capsule 250 mg 250 mg, Oral, 2 TIMES DAILY, First dose on Thu05/24/16 at 0900, Until Discontinued, DO NOT CRUSH OR OPEN, Routine 0838 (Given - Provider: Mirian Gambino RN)2035 (Given - Provider: Cami Leonardo RN) 1006 (Given - Provider: Monique Christian, JADEN)2012 (Given - Provider: Keyana Moy RN) 0837 (Given - Provider: Lorena Oneal, JADEN) pantoprazole (PROTONIX) tablet 40 mg 40 mg, Oral, DAILY, First dose on Thu05/25/16 at 0900, Until Discontinued, DO NOT CRUSH OR OPEN 0836 (Given - Provider: Mirian Gambino RN) 101 (Given - Provider: Monique Christian RN) 0837 (Given - Provider: Lorena Oneal, JADEN) potassium chloride 10 mEq in 100 mL [...] Moy RN) 0838 (Given - Provider: Lorena Oneal, JADEN) sodium chloride 0.9 % flush 5 mL [...] NIGHTLY, First dose (after last modification) on 11/16/16 at 2100, Until Discontinued, Routine 2155 (Given - Provider: Cami Leonardo, JADEN) 2145 (Given - Provider: Cami Leonardo, JADEN) tacrolimus (PROGRAF) capsule 1 mg(Linked Group 1) 1 mg, Oral, DAILY, First dose (after last modification) on Thu05/21/16 at 0900, Until Discontinued, Routine 0837 (Given - Provider: Mirian Gambino, JADEN) 1007 (Given - Provider: Monique Christian RN) 0842 (Given - Provider: Lorena Oneal RN - Comment: prograf level drawn by lab zelalem navarrete) tamsulosin (FLOMAX) ER capsule 0.4 mg 0.4 [...] Denney RN)0911 (See Alternative - Provider: Mirian Gambino, JADEN)1258 (See Alternative - Provider: Mirian Gambino RN)1708 (See Alternative - Provider: Mirian Gambino RN)2156 (See Alternative - Provider: Cami Leonardo RN) 0216 (See Alternative - Provider: aCmi Leonardo RN)0611 (See Alternative - Provider: Cami Leonardo RN)1014 (See Alternative - Provider: Monique Christian RN)1728 (Given - Provider: Monique Christian RN)2327 (Given - Provider: Cami Leonardo RN) 0415 (Given - Provider: Cami Leonardo RN)0826 (Given - Provider: Ryan Fuchs RN - Comment: per request)1228 (Given [...] Mirian Gambino RN)1258 (Given - Provider: Mirian Gambino RN)1708 (Given - Provider: Mirian Gambino RN)2156 (Given - Provider: Cami Leonardo RN) 0216 [...] Gambino RN)1708 (See Alternative - Provider: Mirian Gambino RN)2156 (See Alternative - Provider: Cami Leonardo [...] Routine documented in this encounter Care Teams Political Director Relationship Specialty Start Date End Date Urbano Denis DO [address] [place] [address] PCP - General 09/03/12 03/17/22 Ruchi Valles RN Nurse Clinic Transplant Surgery 07/30/15 documented as of this encounter
--- OUTSIDE RECORDS SUMMARY | 2024-02-14 11:30 | XMS_ITS | Encounter Summary ---
Author Organization [facility] Address [facility] [place] [address] Care Team Providers Care Theater Education Teacher Name Role Phone Urbano Denis DO Primary Care Provider [phone] Reason for Visit * Auth/Cert Specialty Diagnoses / Procedures Referred By Humberto flor Referred To Contact Diagnoses Dehydration Referral ID Status Reason Start Date Expiration Date Visits Re quested Visits Authorized [id number] 1 1 Encounter Details Date Type Department Care Team (Late st Contact Info) Description 05/13/2016 12:46 PM EST - 05/13/2016 4:28 PM [facility] [place] [phone] Que Amaro MD [facility] [place] [address] Discharge Disposition: Still a Patient Social History Tobacco Use Types Packs/Day Years [...] tablet 1 05/28/2016 06/03/2016 meTOPROLOL tartrate (LOPRESSOR) 25 mg Tablet Take 1 tablet by mouth 2 times daily. 60 tablet 11 05/27/2016 05/27/2016 meTOPROLOL tartrate (LOPRESSOR) 50 mg Tablet Take [...] capsule by mouth daily. 30 capsule 11 09/17/2015 05/28/2016 clopidogrel (PLAVIX) 75 mg Tablet Take 1 tablet by mouth daily. 30 tablet 0 05/12/2015 05/28/2016 documented as of this encounter H&P Notes * Marcio Haynes MD - 05/13/2016 12:55 PM EST Transplant Surgery History and Physical Date: 05/13/2016 Patient: Cody Bolden Date of Transplant: 09/16/2015 (Kidney) Transplant Surgeon: Chaya History of Present Illness: Cody Bolden is [...] surgery to reconstruct his ureter next Thursday. Current Meds: Current Outpatient Prescriptions Medication Sig Dispense Refill ??? levothyroxine (SYNTHROID) [...] tablets by mouth 2 times daily.) ??? calciTRIol (ROCALTROL) 0.5 mcg Capsule Take 1 capsule by mouth daily. 30 capsule 11 ??? tacrolimus (PROGRAF) 1 mg Capsule Take 1 mg by mouth 2 times daily. ??? DILTiazem (DILTIAZEM CD) 120 mg Capsule, Sust. Release 24 hr Take 1 capsule by mouth daily. 30 capsule 11 ??? valGANciclovir (VALCYTE) 450 mg Tablet Take 1 tablet by mouth 2 times daily. 30 tablet 3 ??? omeprazole (PRILOSEC) 20 mg Capsule, Delayed Release(E.C.) Take 20 mg by mouth daily as needed. ??? tamsulosin (FLOMAX) 0.4 mg Capsule, Sust. Release 24 hr Take 1 capsule by mouth nightly. 30 capsule 11 ??? clopidogrel (PLAVIX) 75 mg Tablet Take 1 tablet by mouth daily. (Patient not taking: Reported on 04/23/2016) 30 tablet 0 No current facility-administered medications for this visit. [...] coagulase-negative Staphylococcus R78.81 ??? Ureteral stricture N13.5 Past Medical History: Past Medical History Diagnosis [...] EXTREMITY performed by Que Amaro MD at [facility] OR ??? Pro transplantation of kidney N/A 09/16/2015 @KIDNEY TRANSPLANT, WITHOUT RECIPIENT NEPHRECTOMY performed by Franko Larkin MD at [facility] OR ??? Pro transplant, prep cadaver renal graft N/A 09/16/2015 @PREPARATION CADAVERIC RENAL ALLOGRAFT performed by Franko aLrkin MD at [facility] OR ??? N/A 09/16/2015 ORGAN ACQUISITION RENAL, CADAVERIC performed by Franko Larkin MD at [facility] OR Family History: No family history on file. Social History: Social History Substance Use Topics ??? Smoking status: Current Some Day Smoker Types: Cigars Last attempt to quit: 01/02/2015 ??? Smokeless tobacco: Never Used Comment: cigars, one weekly ??? Alcohol use No ROS: Review of Systems All other systems reviewed and are negative. Vital Signs: BP 111/75 Pulse 100 Temp 36.7 ??C (98 ??F) Ht 177.8 cm (5' 10) Wt 95.3 kg (210 lb 3.2oz) BMI 30.16 kg/m2 Physical Exam: Objective: Vital signs (most recent): Blood pressure 111/75, pulse 100, temperature 36.7 ??C (98 ??F), height 177.8 cm (5' 10), weight 95.3 kg (210 lb 3.2 oz). General appearance: Ill-appearing and in no acute distress. Lungs: Normal effort. Heart: Tachycardia. Abdomen: Abdomen is soft. Tenderness: There is no abdominal tenderness tenderness. Extremities: (PICC in place, no tenderness or erythema. Nephrostomy tube in place. ). Neurological: The patient is alert and oriented to person, place and time. 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 This, along with daptomycin side effects, and likely dehydration account for his symptoms of fatigue. His vitals show hypotension, labs indicate hemoconcentration, and his urine is dark, all of which also points toward dehydration. We will obtain blood cultures in clinic today and a c.diff screen. He and his feel more comfortable being admitted temporarily for rehydration and to screen for blood stream infection. Plan: - Admit to transplant surgery, Sondra - Vancomycin 1.25g q12h - Carb control diet - Home meds - Bolus 2L IV, then 100/hr NS - F/u blood cultures, c.diff - AM labs - Floor status, full code MD: Marcio Haynes MD Associated attestation - Que Amaro MD - 05/13/2016 1:04 PM EST I have seen the patient and reviewed the resident's above history and I agree with the details as written. The assessment and plan were formulated in discussion with me and I agree with them as documented. documented in this encounter Plan of Treatment Upcoming Encounters Date Type Department Care Team (Late st Contact Info) Description 04/15/2024 10:00 AM EDT Hospital Encounter Non[place] [address] Arrived documented as of this encounter Procedures Procedure Name Priority Date/Time Associated Diagnosis Comments XR CHEST ONE VIEW Routine 05/13/2016 5:3 2 PM EST documented in this encounter Results * XR Chest PA or AP 1 view (05/13/2016 5:32 PM EST) Anatomical Region Laterality Modality Chest N/A Digital Radiogra phy Impressions 05/13/2016 5:37 PM EST 1. No radiographic evidence of active cardiopulmonary disease. 2. The right-sided PICC line terminates at the expected location of SVC. Narrative 05/13/2016 5:37 PM EST EXAMINATION: XR CHEST PA OR AP 1 VIEW CLINICAL HISTORY: Check PICC position TECHNIQUE: AP portable chest COMPARISON: 04/25/2016 FINDINGS: Cardiomediastinal contours are within normal limits. Lungs are clear. There are no pleural effusions. However, the right costophrenic angle is not included in the [id number]. Right-sided PICC line terminates at the expected location of SVC. Procedure Note Shanon Brady MD - 05/13/2016 EXAMINATION: XR CHEST PA OR AP 1 VIEW CLINICAL HISTORY: Check PICC position TECHNIQUE: AP portable chest COMPARISON: 04/25/2016 FINDINGS: Cardiomediastinal contours are within normal limits. Lungs are clear. There are no pleural effusions. However, the rightcostophrenic angle is not included in the [id number]. Right-sided PICC line terminates at the expected location of SVC. IMPRESSION 1. No radiographic evidence of active cardiopulmonary disease. 2. The right-sided PICC line terminates at the expected location of SVC. Que Amaro MD IMG DX ORDERAB LES documented in this encounter Visit Diagnoses Diagnosis Dehydration documented in this encounter Admitting Diagnoses Diagnosis Dehydration documented in this encounter Care Teams Theater Education Teacher Relationship Specialty Start Date End Date Urbano Denis DO [address] [place] [address] PCP - General 09/03/12 03/17/22 Ruchi Valles RN Nurse Clinic Transplant Surgery 07/30/15 documented as of this encounter
--- OUTSIDE RECORDS SUMMARY | 2024-02-14 11:30 | XMS_ITS | Encounter Summary ---
Author Organization [facility] [place] [address] Care Team Providers Care Infant Nanny Name Role Phone AdeelUrbano toscano Primary Care Provider Encounter Details Date Type Department Care Team (Late st Contact Info) Description 04/25/2016 Orders Only [place] [phone] Samia Escalante, RN H/O kidney transplant Social History Tobacco [...] AM EDT Hospital Encounter Non-[place] [phone] Arrived Scheduled Orders Name Type Priority Associated Diagnoses Orde r Schedule Comprehensive metabolic panel (non-fasting) Lab STAT H/O kidney transplant Expected: 04/25/2016 (Approximate), Expires: 04/25/2017 Magnesium Lab STAT H/O kidney transplant Expected: 04/25/2016 (Approximate), Expires: 04/25/2017 Phosphorus Lab STAT H/O kidney transplant Expected: 04/25/2016, Expires: 04/25/2017 CBC (with Diff) Lab STAT H/O kidney transplant Expected: 04/25/2016 (Approximate), Expires: 04/25/2017 documented as of this encounter Results * Uric acid (04/25/2016 4:04 PM EDT) Uric Acid 7.4 3.5 - 8.5 mg/dL [facility] Blood specimen (specimen) 04/25/2016 4:04 PM EDT 04/25/2016 4:10 PM EDT Narrative Resulting Agency Comment Spec In Lab Tal Eagle MD CHEMISTRY ORDERAB LES Performing Organization Address [facility]/ZIP Co de Phone Number [facility] [place] [address] * Cholesterol, total (04/25/2016 4:04 PM EDT) Cholesterol, Total 125 <=199 mg/dL [facility] Comment: Recommendations of the NCEP Adult Treatment Panel for the following risk cutoff thresholds for the [place] population: Desirable: <200 mg/dL Borderline High: 200-239 mg/dL High: > or = 240 mg/dL Blood specimen (specimen) 04/25/2016 4:04 PM EDT 04/25/2016 4:10 PM EDT Narrative Resulting Agency Comment Spec In Lab Tal Eagle MD CHEMISTRY ORDERAB LES Performing Organization Address City/[facility]/ZIP Co de Phone Number [facility] [place] [address] * (ABNORMAL) Blood culture (04/25/2016 4:03 PM EDT) Blood Culture Coagulase negative Staphylococcus species detected by PCR Isolate saved. If future testing is required, contact the Microbiology Software Support Engineer. (A) [facility] Gram Stain Anaerobic Growth detected in anaerobic bottle. Gram Positive Cocci in clusters seen Results called to and read back by DR. PACK. (A) [facility] Organism Coagulase negative Staphylococcus species(A) [facility] Organism Gram Positive Cocci in clusters(A) [facility] Blood specimen (specimen) STRUCTURE OF RIGHT UPPER LIMB / Unknown 04/25/2016 4:03 PM EDT 04/25/2016 5:03 PM EDT Narrative Resulting Agency Comment Spec In Lab Organism Antibiotic Method Susceptibility Coagulase Negative Staphylococcus species Amoxicillin + Clavulanate MICROSCAN METHOD Resistant Coagulase Negative Staphylococcus species Ampicillin MICROSCAN METHOD Resistant Coagulase Negative Staphylococcus species Ampicillin + Sulbactam MICROSCAN METHOD Resistant Coagulase Negative Staphylococcus species Cefazolin MICROSCAN METHOD Resistant Coagulase Negative Staphylococcus species Ceftriaxone MICROSCAN METHOD Resistant Coagulase Negative Staphylococcus species Ciprofloxacin MICROSCAN METHOD Resistant Coagulase Negative Staphylococcus species Clindamycin MICROSCAN METHOD Sensitive Coagulase Negative Staphylococcus species Daptomycin MICROSCAN METHOD Sensitive Coagulase Negative Staphylococcus species Erythromycin MICROSCAN METHOD Sensitive Coagulase Negative Staphylococcus species Gentamicin MICROSCAN METHOD Resistant Comment:Gentamicin i s not appropriate for [place]-therapy. Coagulase Negative Staphylococcus species Levofloxacin MICROSCAN METHOD Resistant Coagulase Negative Staphylococcus species Oxacillin MICROSCAN METHOD Resistant Coagulase Negative Staphylococcus species Penicillin MICROSCAN METHOD Resistant Coagulase Negative Staphylococcus species Tetracycline MICROSCAN METHOD Sensitive Coagulase Negative Staphylococcus species Trimethoprim/Sulfa MICROSCAN METHOD Resistant Coagulase Negative Staphylococcus species Vancomycin MICROSCAN METHOD Sensitive Tal Eagle MD MICROBIOLOGY - BL OOD ORDERABLES [facility] [place] [address] documented in this encounter Visit Diagnoses Diagnosis H/O kidney transplant Kidney replaced by transplant documented in this encounter Care Teams Infant Nanny Relationship Specialty Start Date End Date Urbano Denis DO [address] [place] [address] PCP - General 09/03/12 03/17/22 Ruchi Valles RN Nurse Clinic Transplant Surgery 07/30/15 documented as of this encounter
--- OUTSIDE RECORDS SUMMARY | 2024-02-14 11:30 | XMS_ITS | Encounter Summary ---
Author Organization [facility] [place] [address] Care Team Providers Care Pattern Changer Name Role Phone AdeelUrbano boland Primary Care Provider Encounter Details Date Type Department Care Team (Late st Contact Info) Description 04/25/2016 Orders [place] [phone] Ellen Heller MD [facility] [place] [address] Fever, unspecified fever cause Social History Tobacco Use Types Packs/Day Years [...] Hospital Encounter Non-[place]vasive [place] [phone] Arrived documented as of this encounter Results * (ABNORMAL) Phosphorus (04/25/2016 4:04 PM EDT) Phosphorus 2.4(L) 2.5 - 4.5 mg/dL [facility] Blood specimen (specimen) 04/25/2016 4:04 PM EDT 04/25/2016 4:10 PM EDT Narrative Resulting Agency Comment Spec In Lab Tal Eagle MD CHEMISTRY ORDERAB LES Performing Organization Address [facility] Co de Phone Number [facility] [place] [address] * (ABNORMAL) Magnesium (04/25/2016 4:04 PM EDT) Pathologist [facility] Magnesium 0.54(L) 0.69 - 1.07 mmol/L [facility] Blood specimen (specimen) 04/25/2016 4:04 PM EDT 04/25/2016 4:10 PM EDT Narrative Resulting Agency Comment Spec In Lab Tal Eagle MD CHEMISTRY ORDERAB LES Performing Organization Address [facility] Co de Phone Number [facility] [place] [address] * (ABNORMAL) Comprehensive metabolic panel (non-fasting) (04/25/2016 4:04 PM EDT) [facility] Glucose 139 65 - 199 mg/dL [facility] Comment:Diabetes: >=200 mg/d L plus symptoms Blood Urea Nitrogen 14 10 - 20 mg/dL [facility] Creatinine 1.53(H) 0.80 - 1.50 mg/dL [facility] Comment: Please note that the pediatric reference intervals supplied above were not validated at [facility]. Results from pediatric patients should be interpreted [...] mmol/L [facility] Anion Gap 17(H) 5 - 15 mmol/L [facility] Calcium 9.5 8.5 - 10.5 mg/dL [facility] Protein, Total 7.7 6.1 - 8.0 gm/dL [facility] Albumin 4.3 3.2 - 5.2 gm/dL [facility] Aspartate Aminotransferase 23 0 - 39 unit/L [facility] Alanine Aminotransferase 25 0 - 55 unit/L [facility] Alkaline Phosphatase 63 40 - 120 unit/L [facility] Bilirubin, Total 1.6(H) 0.2 - 1.3 mg/dL [facility] Bilirubin, Direct 0.3 0.0 - 0.3 mg/dL [facility] Est Glomerular Filtration Rate 46(L) >=60 [facility] Comment: This estimated GFR (eGFR) [...] the following links into your internet browser. [email or web address] Blood specimen (specimen) 04/25/2016 4:04 PM EDT 04/25/2016 4:10 PM EDT Narrative Resulting Agency Comment Spec In Lab Tal Eagle MD CHEMISTRY ORDERAB LES [facility] [place] [address] documented in this encounter Visit Diagnoses Diagnosis Fever, unspecified fever cause documented in this encounter Care Teams Pattern Changer Relationship Specialty Start Date End Date Urbano Denis DO [address] [place] [address] PCP - General 09/03/12 03/17/22 Ruchi Valles RN Nurse Clinic Transplant Surgery 07/30/15 documented as of this encounter
--- OUTSIDE RECORDS SUMMARY | 2024-02-14 11:30 | XMS_ITS | Encounter Summary ---
Author Organization [facility] [place] [address] Care Team Providers Care Career Services Representative Name Role Phone AdeelUrbano boland Primary Care Provider [phone] Reason for Visit * Auth/Cert Specialty Diagnoses / Procedures Referred By Humberto flor Referred To Contact Diagnoses Dehydration Referral ID Status Reason Start Date Expiration Date Visits Re quested Visits Authorized [id number] 1 1 Encounter Details Date Type Department Care Team (Late st Contact Info) Description 05/20/2016 3:10 PM EST Anesthesia Event [place] [id number] Memo Alva MD [facility] [place] [address] Miller Seals CRNA [facility] [place] [address] Anesthesia Record Procedure Summary Procedure Name Responsible Anesthesiologist Anesthesia Start Time Anesthesia Stop Time @URETERONEOCYSTOSTOMY ANASTOMOSIS OF SINGLE URETER TO BLADDER (WRVU 19.95) (Left: Ureter) Memo Alva MD 05/20/16 1510 05/20/167 Events Date Time Event Comment 05/20/2016 1248 1510 Start 1512 AN Verify 1512 An Start Data 1516 An Induction 1522 An Intubation 1526 Anesthesia Ready 1603 Procedure Start 1854 Handoff Intra-procedure anesthesia care was transferred after review of the patient's history, current anesthetic/surgical status and plan, according to the [facility] Provider Handoff Checklist. 1853 Quick Note Nephrostomy tub e clamped per surgeon request 1952 Quick Note Nephrostomy unc lamped per surgeon 2104 Extubation/LMA Out Criteria met. Suctioned, extubated to FM. VSS. Oral and nasal airways in place. VSS 2110 an stop data 2126 Recovery or ICU Handoff Alanna ent care was transferred to the destination unit staff after review of the patient's medical history, current anesthetic/surgical status and plan, according to the Provider Handoff Checklist. 2126 Stop In PACU 23, rep ort to RN. VSS. Meds Name Total fentaNYL 100 mcg IV Lidocaine 50 mg Propofol 200 mg Rocuronium 150 mg ePHEDrine 10 mg Ondansetron 4 mg Dexamethasone 16 mg Neostigmine 5 mg Glycopyrrolate 0.8 mg fentaNYL 2 mcg/mL, BUpivacai ne (MARCAINE) 0.0625% (0.625 mg/mL)(16%) in sodium chloride 0.9% 250 mL epidural 35.5 mL ciprofloxacin (CIPRO) 400mg in dextrose 5% 200mL 400 mg metroNIDAZOLE (FLAGYL) 1,000 mg in sodium chloride 0.9% 200 mL (2x100 mL bags) 1,000 mg Ketamine 10 mg/mL 50 mg HYDROmorphone 2 mg Sodium Chloride 0.9% 2,500 mL Lactated Ringers 400 mL * Agents Name O2 Air N2O Sevoflurane (et) Isoflurane (et) * Blood No blood administrations on file. Lines, Drains, and Airways Type Details Placement Removal Incision 09/16/15; abdomen; o ther (see comments) (draini); (wound drain to small bulb); 06/17/18; 1547 09/16/15 0000 by Shira Kemp RN 06/17/18 1547 by Karly Parra RN Incision 09/16/15; abdomen; 06/17/18; 1547 09/16/15 0000 by Shira Kemp RN 06/17/18 1547 by Karly Parra RN Incision 03/25/16; abdomen; 06/17/18; 1547 03/25/16 0000 by Kandace Eduardo RN 06/17/18 1547 by Karly Parra RN Nephrostomy Tube 04/30/16; 1103; othe r (see comments) (L Lower Quadrant); drainage bag to dependent drainage; exchange of Nephroureteral tube to PCN and JJ stent 10 fr (Lot #[id number]); 06/09/16; 0809 04/30/16 1103 by Marisela Miller RN 06/09/16 0809 by Therese Carpio RN Hemodialysis AV Access Device - Single Lumen 05/15/16; 1028; fistula; upper arm, left; found on assessment; 05/28/16; 1228 05/15/16 1028 by Sonia Collins RN 05/28/16 1228 by Sintia Whipple RN (RETIRED) Peripheral IV Line - Single Lumen 05/16/16; 1113; cephalic vein (lateral side of arm), right; [id number] catheter system; 20 gauge; intradermal injection, distraction, tolerated well; site symptomatic; 05/22/16; 1541 05/16/16 1113 by Fan Roca LPN 05/22/16 1541 by Fan Roca LPN Incision 05/20/16; abdomen; 06/17/18; 1547 05/20/16 0000 by Nuris Andersen RN 06/17/18 1547 by Karly Parra RN Urethral Catheter 05/20/16; Urologic surgery; Physician order; indwelling double lumen catheter; latex; 20; inserted at this facility; 1; 5; 10; drainage bag to dependent drainage; 06/23/16; 1428 05/20/16 0000 by Nuris Andersen RN 06/23/16 1428 by Lorena Alvarado RN Drain/Device Site 05/20/16; Left; othe r (see comments); bridgette becker; Sterile technique; 6 fr transplant stent; unknown removal time or date; 05/26/16; 0924 05/20/16 0000 by Nuris Andersen RN 05/26/16 0924 by Mirian Gambino RN Epidural 05/20/16; 1349; thor acic; Loss 6, Tip T 9, skin13; Maris/Seiffert/Masaracch ia; 05/23/16 05/20/16 1349 by Paola Schreiber RN 05/23/16 0000 by Anastasiia Denney RN (RETIRED) Peripheral IV Line - Single Lumen 05/20/16; 1522; cephalic vein (lateral side of arm), right; [id number] catheter system; 16 gauge; MD Amrita; site symptomatic, removed per policy/procedure, site care per policy/procedure, catheter/device intact; 05/23/16; 0657 05/20/16 1522 by Miller Seals, ACCOUNT DEVELOPER 05/23/16 06 by Deandre Johnson RN ETT Mask Ventilation: Ad junct (2); ETT Type: Cuffed, Oral; ETT Size: 7 mm; Mac Blade: 3; Notes: Asleep, Pre-O2, Stylette; Attempts: 2; Laryngoscopy Grade: 1; ETT Placement Verified By: Auscultation, Capnometry, Visual; Secured at Teeth: 23 cm; Inserted by: MD Danielle; Removal Date: 05/20/16; Removal Time: 210405/20/16 152 by Miller Seals, ACCOUNT DEVELOPER 05/20/162104 by Marisela Garzon CRNA Drain/Device Site 05/20/16; 2007; Left ; upper; abdomen; collapsible closed device; Dr. Arredondo; (19 ukrainian margret drain); 05/25/16; 0905/20/162007 by Hanh Adler, JADEN 05/25/16 09 by Yudelka Hinojosa RN documented in this encounter Social History [...] OR Notes * Anesthesia Postprocedure Evaluation - Memo Alva MD - 05/20/2016 11:24 PM EST [facility] [place] Anesthesiology Post-procedure Note Patient: Cody Bolden Procedure Summary Date Anesthesia Start Anesthesia Stop Room / Location 05/20/16 1510 2126 [facility] OR [facility] MAIN OR Procedure Diagnosis Surgeon Responsible Provider @URETERONEOCYSTOSTOMY ANASTOMOSIS OF SINGLE URETER TO BLADDER (Left Ureter); @URETERONEOCYSTOSTOMY ANASTOMOSIS OF SINGLE URETER TO BLADDER (N/A Ureter) (left ureteral stricture) Santosh Arredondo MD; Que Amaro MD Sidash, Stanislav, MD All Anesthesia Providers: Anesthesiologist: Toney Crowe MD; Memo Alva MD ACCOUNT DEVELOPER: Miller Seals CRNA; Marisela Garzon CRNA Last (1hr) Vitals: BP 155/83 (05/20/16 2300) Temp Pulse 62 (05/20/16 2300) Resp 15 (05/20/16 2300) SpO2 92 % (05/20/16 2300) Patient Location: PACU/[facility] Level of Consciousness: Awake and Alert Pain Management: Satisfactory Analgesia PONV: None Cardiovascular Status: At Baseline Respiratory Status: At Baseline Postoperative Fluid Status: Intravascular EUvolemia Possible Anesthetic Complications: NONE apparent at time of evaluation Final Primary Anesthesia Type: General (The anesthetic type performed was the same as planned.) Comments: * Anesthesia Procedure Notes - Mina Giordano MD - 05/20/2016 2:19 PM EST Associated Order(s): ANE NEURAXIAL UPDATED Procedure: Neuraxial Block Post-op Pain Control Performed by APS Type: Epidural The patient was greeted. The sedation plan, its benefits, risks and alternatives were discussed with the patient. The patient has consented to the procedure. The medical history and chart were reviewed. The timeout was performed. Start time: 05/20/2016 1:30 PM End time: 05/20/2016 1:45 PM Patient Location: Operating Room Patient Prep Position: Prone Prep: Hand Hygiene, Hat, Mask, Sterile Gloves, Gown, Chlorhexidine and Patient Draped Skin Anesthetic Lidocaine 1% 3 ml Procedure Technique Level of needle insertion: L1-2 Needle approach: midline Needle Type: Tuohy Gauge: 17 Needle length: 3.5 in Needle insertion depth when JERRY achieved: 6 cm Technique for Loss of Resistance: JERRY air and JERRY saline Catheter at skin depth: 13.5 cm Dressing/Secured with: Chlorhexidine Tegaderm, Tegaderm and Tape Number of attempts: 1 Bolus medication 0.2 mg Hydromorphone mcg Events/Notes Imaging: epidurogram obtained and fluoroscopy guided Iohexol 240 mgI/mL, 2 mL Events: None Resident/ACCOUNT DEVELOPER: MINA GIORDANO Second Resident/ACCOUNT DEVELOPER: Fellow: Attending Physician: MAUREEN SMALLS ~~~~~~~~~~~~~~~~~~~~~~~~~~~~~~~~~~~~~~~~~~~~~~~~~~~~~~~~~~~~ * Anesthesia Preprocedure Evaluation - Toney Crowe MD - 05/20/2016 9:40 AM EST Images from the original note were not included. Pre-Anesthesia Evaluation for: Cody Bolden a 65 y.o. male. Procedure(s): @URETERONEOCYSTOSTOMY ANASTOMOSIS OF SINGLE URETER TO BLADDER @URETERONEOCYSTOSTOMY ANASTOMOSIS OF SINGLE URETER TO BLADDER Patient Active Problem List Diagnosis ??? Dehydration [...] (degenerative joint disease) ??? Hematuria Past Medical History Diagnosis Date ??? Back [...] EXTREMITY performed by Que Amaro MD at [facility] MAIN OR ??? Pro transplantation of kidney N/A 09/16/2015 @KIDNEY TRANSPLANT, WITHOUT RECIPIENT NEPHRECTOMY performed by Franko Larkin MD at [facility] OR ??? Pro transplant, prep cadaver renal graft N/A 09/16/2015 @PREPARATION CADAVERIC RENAL ALLOGRAFT performed by Franko Larkin MD at [facility] OR ??? N/A 09/16/2015 ORGAN ACQUISITION RENAL, CADAVERIC performed by Franko Larkin MD at [facility] OR Social History Substance Use Topics ??? Smoking status: Current Some Day Smoker Types: Cigars Last attempt to quit: 01/02/2015 ??? Smokeless tobacco: Never Used Comment: cigars, one weekly ??? Alcohol use No History Drug Use No No Known Allergies Medications: MAR and/or home medications have been reviewed. Physical Exam: Vitals: 05/20/16 0652 BP: 131/70 Pulse: Resp: 18 Temp: 36.2 ??C (97.2 ??F) Body mass index is 28.98 kg/(m^2). Height: 177.8 cm (5' 10) Weight - Scale: 91.6 kg (201 lb 15.1 oz) Airway Assessment: Mallampati: II Neck ROM: full Cardiovascular Assessment: Rhythm: regular Rate: normal Pulmonary Assessment: breath sounds clear to auscultation Dental Assessment: Misc Assessment: Patient is wearing No contact(s). IV access: Peripheral line Other exam findings: LEFT arm AV fistula Anesthesia Plan: ASA 3 general and epidural, with a(n) intravenous induction Region - Other Informed Consent: Anesthetic plan and risks discussed with patient and spouse. Use of blood products discussed with patient and spouse who. [facility] Staff Note Attending NOTE Brief HPI: 65 y.o. to OR for ureteroneocystostomy anastomosis of LEFT ureter. Patient underwent renal transplant September 2015 complicated by post op bactermia and ureteral stricture. He was admitted this hospitalization 05/13/16 for dehydration. Off Plavix > 10 days Diagnosis ??? DM type 2 (diabetes mellitus, type 2) ??? Hypertension ??? DJD (degenerative joint disease) ??? Hematuria ??? H/o ESRD (end stage renal disease) s/p renal transplant 09/2015. Creatinine now 1.1 pre-op ??? HCV (hepatitis C virus) ??? CGN (chronic glomerulonephritis) ??? Ureteral stricture ? ? H/o TIA (now off Plavix > 10 days) Past Medical History Diagnosis Date ??? Back pain ??? Colon polyp ??? CVA (cerebral vascular accident) Per report but no deficits ??? ESRD (end stage renal disease) ??? GERD (gastroesophageal reflux disease) ??? HTN (hypertension) ??? Microhematuria ??? Type 2 diabetes mellitus METS:>4 Cardiac Symptoms: denies EKG: NSR w/ remature supraventricular complexes, LAFB ECHO: 2015 stress echo negative for ischemia but did not achieve adequate heart rate. Normal EF LABS: Lab Results Component Value Date HGB 14.1 05/20/2016 PLATELET 214 05/20/2016 INR 1.0 05/19/2016 NA 138 05/20/2016 K 3.5 05/20/2016 CREATININE 1.14 05/20/2016 Type and Screen: Lab Results Component Value Date ABORH AB Pos 05/19/2016 Past anesthetic problems: denies Last anesthetic record (on eDH): mask ventilation adjunct (2); grade 1 mac 3 NPO status: Reviewed and appropriate Anesthetic Plan: GETA, epidural for post op analgesia; no IV or BP in LEFT arm Monitoring: Standard ASA monitors documented in this encounter Miscellaneous Notes * Addendum Note - Maureen Smalls MD - 06/16/2016 4:42 PM EST Addendum created 06/16/16 1642 by Maureen Smalls MD Anesthesia Attestations filed documented in this encounter Plan of Treatment Upcoming Encounters Date Type Department Care Team (Late st Contact Info) Description 04/15/2024 10:00 AM EDT Hospital Encounter Non-[place] [address] Arrived documented as of this encounter Procedures Procedure Name Priority Date/Time Associated Diagnosis Comments ANE NEURAXIAL UPDATED Routine 05/20/2016 2:21 PM EST Procedure Note - Mina Giordano MD - 05/20/2016 2:19 PM ESTThis note is in progress. Procedure: Neuraxial Block Post-op Pain Control Performed by APS Type: Epidural The patient was greeted. The sedation plan, its benefits, risks andalternatives were discussed with the patient. The patient has consentedto the procedure. The medical history and chart were reviewed. Thetimeout was performed. Start time: 05/20/2016 1:30 PM End time: 05/20/2016 1:45 PM Patient Location: Operating Room Patient Prep Position: Prone Prep: Hand Hygiene, Hat, Mask, Sterile Gloves, Gown, Chlorhexidine andPatient Draped Skin Anesthetic Lidocaine 1% 3 ml Procedure Technique Level of needle insertion: L1-2 Needle approach: midline Needle Type: Tuohy Gauge: 17 Needle length: 3.5 in Needle insertion depth when JERRY achieved: 6 cm Technique for Loss of Resistance: JERRY air and JERRY saline Catheter at skin depth: 13.5 cm Dressing/Secured with: Chlorhexidine Tegaderm, Tegaderm and Tape Number of attempts: 1 Bolus medication 0.2 mg Hydromorphone mcg Events/Notes Imaging: epidurogram obtained and fluoroscopy guided Iohexol 240 mgI/mL, 2 mL Events: None Resident/ACCOUNT DEVELOPER: MINA GIORDANO Second Resident/ACCOUNT DEVELOPER: Fellow: Attending Physician: MAUREEN SMALLS ~~~~~~~~~~~~~~~~~~~~~~~~~~~~~~~~~~~~~~~~~~~~~~~~~~~~~~~~~~~~ documented in this encounter Visit Diagnoses Not on filedocumented in this encounter Administered Medications Inactive Administered Medications - up to 3 most recent administrations Medication Order MAR Action Action Date Dose Rate Site ciprofloxacin (CIPRO) 400mg in dextrose 5% 200mL 400 mg, Intravenous, 30 MIN PRE-OP, 1 dose, On Thu05/20/16 at 1100, Administer over 60 Minutes, Indication for (Active or Suspected): Prophylaxis, Restricted Antibiotic: Please indicate the most appropriate choice: Pre-approved Indication (State the indication in Comments field) Given 05/20/2016 3:33 PM EST 400 mg dexamethasone (DECADRON) injection PRN, Starting on Thu05/20/16 at 1524, Until Thu05/20/16 at 2127, Anesthesia Intra-op, Routine Given 05/20/2016 4:30 PM EST 8 mg Given 05/20/2016 3:24 PM EST 8 mg ePHEDrine 5 mg/mL multi-dose injection PRN, Starting on Thu05/20/16 at 1532, Until Thu05/20/16 at 2127, Anesthesia Intra-op, Routine Given 05/20/2016 3:32 PM EST 10 mg fentaNYL 2 mcg/mL, BUpivacaine (MARCAINE) 0.0625% (0.625 mg/mL)(1/16%) in sodium chloride 0.9% 250 mL epidural Epidural, Patient Controlled Epidural Analgesia (PCEA): 3 mL, PCEA Frequency: Every 20 minutes, Maximum rate for continuous infusion 14 mL per hour Maximum total epidural rate (continuous and PCEA bolus) is 25 mL per hour, Recovery (Recovery-Hospital Unit) [facility] 05/22/2016 6:45 PM EST 6 mL/hr 6 mL/h r New Bag 05/21/2016 7:13 PM EST 6 mL/hr 6 mL/hr Rate/Dose Verify 05/20/2016 8:00 PM EST 6 mL/hr 6 mL/hr fentaNYL 50 mcg/mL multi-dose injection PRN, Starting on Thu05/20/16 at 1512, Until Thu05/20/16 at 2126, Pain, Anesthesia Intra-op, Routine Given 05/20/2016 3:12 PM EST 100 mcg glycopyrrolate (ROBINUL) multi-dose injection PRN, Starting on Thu05/20/16 at 2041, Until Thu05/20/16 at 2126, Anesthesia Intra-op, Routine Given 05/20/2016 8:41 PM EST 0.8 mg HYDROmorphone (DILAUDID) injection PRN, Starting on Thu05/20/16 at 1957, Until Thu05/20/16 at 2126, Pain, Anesthesia Intra-op, Routine Given 05/20/2016 8:54 PM EST 0.4 mg Given 05/20/2016 8:47 PM EST 0.4 mg Given 05/20/2016 8:45 PM EST 0.4 mg ketamine (KETALAR) 10 mg/mL bolus injection (Anesthesia) PRN, Starting on Thu05/20/16 at 1607, Until Thu05/20/16 at 2126, Anesthesia Intra-op Given 05/20/2016 6:43 PM EST 10 mg Given 05/20/2016 5:31 PM EST 10 mg Given 05/20/2016 4:07 PM EST 30 mg lactated ringers infusion CONTINUOUS PRN, Starting on Thu05/20/16 at 1819, Until Thu05/20/16 at 2126, Anesthesia Intra-op New Bag 05/20/2016 6:19 PM EST lidocaine (PF) (XYLOCAINE) 100 mg/5 mL (2 %) injection PRN, Starting on Thu05/20/16 at 1516, Until Thu05/20/16 at 2126, Anesthesia Intra-op, Routine Given 05/20/2016 3:16 PM EST 50 mg metroNIDAZOLE (FLAGYL) 1,000 mg in sodium chloride 0.9% 200 mL (2x100 mL bags) 1,000 mg, Intravenous, 30 MIN PRE-OP, 1 dose, On Thu05/20/16 at 1100, Administer over 60 Minutes, Indication for (Active or Suspected): Prophylaxis Given 05/20/2016 3:33 PM EST 1,000 mg neostigmine (PROSTIGMINE) multi-dose injection PRN, Starting on Thu05/20/16 at 2041, Until Thu05/20/16 at 2126, Anesthesia Intra-op, Routine Given 05/20/2016 8:41 PM EST 5 mg ondansetron (ZOFRAN) injection PRN, Starting on Thu05/20/16 at 2027, Until Thu05/20/16 at 2126, Nausea, Anesthesia Intra-op, Routine Given 05/20/2016 8:27 PM EST 4 mg propofol (DIPRIVAN) 10 mg/mL bolus injection (Anesthesia) PRN, Starting on Thu05/20/16 at 1516, Until Thu05/20/16 at 2126, Anesthesia Intra-op Given 05/20/2016 3:19 PM EST 50 mg Given 05/20/2016 3:16 PM EST 150 mg rocuronium (ZEMURON) multi-dose injection PRN, Starting on Thu05/20/16 at 1516, Until Thu05/20/16 at 2126, Anesthesia Intra-op, Routine Given 05/20/2016 7:27 PM EST 20 mg Given 05/20/2016 6:55 PM EST 20 mg Given 05/20/2016 5:56 PM EST 10 mg sodium chloride 0.9% infusion CONTINUOUS PRN, Starting on Thu05/20/16 at 1507, Until Thu05/20/16 at 2126, Anesthesia Intra-op New Bag 05/20/2016 8:30 PM EST New Bag 05/20/2016 7:25 PM EST New Bag 05/20/2016 3:07 PM EST documented in this encounter Care Teams Career Services Representative Relationship Specialty Start Date End Date Urbano Denis DO [address] [place] [address] PCP - General 09/03/12 03/17/22 Ruchi Valles RN Nurse Clinic Transplant Surgery 07/30/15 documented as of this encounter
--- OUTSIDE RECORDS SUMMARY | 2024-02-14 11:30 | XMS_ITS | Encounter Summary ---
Author Organization [facility] [place] [address] Care Team Providers Care Hog Pusher Name Role Phone Urbano Denis DO Primary Care Provider [phone] Reason for Visit * Auth/Cert Specialty Diagnoses / Procedures Referred By Humberto flor Referred To Contact Diagnoses Dehydration Referral ID Status Reason Start Date Expiration Date Visits Re quested Visits Authorized [id number] 1 1 Encounter Details Date Type Department Care Team (Late st Contact Info) Description 05/13/2016 11:00 AM EST Office Visit [place] [address] Que Amaro MD [facility] [place] [address] Kidney replaced by transplant Social History Tobacco [...] Sign Reading Time Taken Comments Blood Pressure 111/75 05/13/2016 11:02 AM EST Pulse 100 05/13/2016 11:02 AM EST Temperature 36.7 ??C (98 ??F) 05/13/2016 11:02 AM EST Respiratory Rate - - Oxygen Saturation - - Inhaled Oxygen Concentration - - Weight 95.3 kg (210 lb 3.2 oz) 05/13/2016 10:10 AM EST Height 177.8 cm (5' 10) 05/13/2016 10:10 AM EST Body Mass Index 30.16 05/13/2016 10:10 AM EST documented in this encounter Progress Notes * Marcio Haynes MD - 05/13/2016 11:00 AM EST Follow-Up: Transplant Clinic Date: 05/13/2016 Patient: Cody Bolden Date of [...] EXTREMITY performed by Que Amaro MD at [facility] MAIN OR ??? Pro transplantation of kidney N/A 09/16/2015 @KIDNEY TRANSPLANT, WITHOUT RECIPIENT NEPHRECTOMY performed by Franko Larkin MD at [facility] MAIN OR ??? Pro transplant, prep cadaver renal graft N/A 09/16/2015 @PREPARATION CADAVERIC RENAL ALLOGRAFT performed by Franko Larkin MD at [facility] MAIN OR ??? N/A 09/16/2015 ORGAN ACQUISITION RENAL, CADAVERIC performed by Franko Larkin MD at [facility] MA[facility] OR Family History: No family [...] status, full code MD: Marcio Haynes MD I have seen the patient and reviewed the resident's above history and I agree with the details as written. The assessment and plan were formulated in discussion with me and I agree with them as documented. 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 No fevers, but tells me that he had some rigors yesterday. We sent blood cultures today and are giving him 2 L IV NS in the clinic. Have arranged for admission to confirm that he is not bacteremic again. Will convert back to vancomycin as we wait out his blood culture results and response to fluids. Immunosuppression reviewed. Currently on Prograf 07/06, Cellcept 250 mg po bid. Await prograf trough level. documented in this encounter Plan of Treatment Upcoming Encounters Date Type Department Care Team (Late st Contact Info) Description 04/15/2024 10:00 AM EDT Hospital Encounter [place] [address] Arrived documented as of this encounter Procedures Procedure Name Priority Date/Time Associated Diagnosis Comments URINALYSIS WITH REFLEX CULTURE STAT 05/13/2016 1:00 PM EST Kidney replaced by transplant URINE CULTURE STAT 05/13/2016 1:00 PM EST BLOOD CULTURE Routine 05/13/2016 12:32 PM EST Kidney replaced by transplant BLOOD CULTURE STAT 05/13/2016 12:19 PM EST Kidney replaced by transplant HEMOGRAM STAT 05/13/2016 10:00 AM EST Kidney replaced by transplant DIFFERENTIAL, AUTOMATED STAT 05/13/2016 10:00 AM EST Kidney replaced by transplant GREEN TUBE HOLD STAT 05/13/2016 10:00 AM EST TACROLIMUS LEVEL STAT 05/13/2016 10:0 0 AM EST Kidney replaced by transplant RETICULOCYTE COUNT STAT 05/13/2016 10 :00 AM EST Kidney replaced by transplant CBC (WITH DIFF) STAT 05/13/2016 10:00 AM EST Kidney replaced by transplant URIC ACID STAT 05/13/2016 10:00 AM EST Kidney replaced by transplant PHOSPHORUS STAT 05/13/2016 10:00 AM EST Kidney replaced by transplant MAGNESIUM STAT 05/13/2016 10:00 AM EST Kidney replaced by transplant CHOLESTEROL, TOTAL STAT 05/13/2016 10 :00 AM EST Kidney replaced by transplant COMPREHENSIVE METABOLIC PANEL STAT 05/13/2016 10:00 AM EST Kidney replaced by transplant documented in this encounter Results * (ABNORMAL) Urine culture (05/13/2016 1:00 PM EST) Urine Culture Greater than 100,000 cfu/ml Klebsiella pneumoniae(A) [facility] Organism Klebsiella pneumoniae(A) [facility] Urine specimen (specimen) 05/13/2016 1:00 PM EST 05/13/2016 1:46 PM EST Narrative Resulting Agency Comment Spec In Lab Organism Antibiotic Method Susceptibility Klebsiella pneumoniae Amikacin MICROSCAN METHOD Sensitive Klebsiella pneumoniae Ampicillin MICROSCAN METHOD Resistant Klebsiella pneumoniae Ampicillin + Sulbactam MICROSCAN METHOD Sensitive Klebsiella pneumoniae Aztreonam MICROSCAN METHOD Sensitive Klebsiella pneumoniae Cefazolin MICROSCAN METHOD Sensitive Klebsiella pneumoniae Cefepime MICROSCAN METHOD Sensitive Klebsiella pneumoniae Ceftazidime MICROSCAN METHOD Sensitive Klebsiella pneumoniae Ceftriaxone MICROSCAN METHOD Sensitive Klebsiella pneumoniae Cefuroxime MICROSCAN METHOD Sensitive Klebsiella pneumoniae Ciprofloxacin MICROSCAN METHOD Sensitive Klebsiella pneumoniae Gentamicin MICROSCAN METHOD Sensitive Klebsiella pneumoniae Levofloxacin MICROSCAN METHOD Sensitive Klebsiella pneumoniae Meropenem MICROSCAN METHOD Sensitive Klebsiella pneumoniae Nitrofurantoin MICROSCAN METHOD Sensitive Klebsiella pneumoniae Piperacillin/Tazobactam MICROSCA N METHOD Sensitive Klebsiella pneumoniae Tetracycline MICROSCAN METHOD Sensitive Klebsiella pneumoniae Tobramycin MICROSCAN METHOD Sensitive Klebsiella pneumoniae Trimethoprim/Sulfa MICROSCAN MET HOD Sensitive Que Amaro MD MICROBIOLOGY - GENERAL ORDERABLES [facility] [address] [address] * (ABNORMAL) Urinalysis with reflex Culture (05/13/2016 1:00 PM EST) Glucose, Urine Dipstick Negative Negative [facility] pH, Urn (dipstick) 5.0 5.0 - 8.0 [facility] Blood, Urine Dipstick Moderate(A) Negative mg/dL [facility] Ketone, Urine Dipstick Negative Negative mg/dL [facility] Nitrite, Urine Dipstick Negative Negative [facility] Leukocytes, Urine Dipstick Large(A) Negative [facility] Appearance, Urine Dipstick Hazy(A) Clear [facility] Specific Rosamond Urine Automated 1.026 1.002 - 1.030 [facility] Color, Urine Dipstick Muna Yellow [facility] RBC, Urine 107(H) 0 - 3 /HPF [facility] WBC, Urine >182(H) 0 - 3 /HPF [facility] WBC Clumps, Urine Occasional(A ) None /HPF [facility] Bacteria, Urine Rare(A) None /HPF [facility] Squamous Epithelial Cells, Urine 1 <=4 /HPF [facility] Renal Epithelial Cells, Urine 1(H) <=0 /HPF [facility] Reflex to Culture Yes [facility] Urine specimen (specimen) 05/13/2016 1:00 PM EST 05/13/2016 1:20 PM EST Narrative Resulting Agency Comment Spec In Lab Que Amaro MD URINE ORDERABL ES Performing Organization Address [facility] Co de Phone Number [facility] [place] [address] * Blood culture (05/13/2016 12:32 PM EST) Blood Culture No growth at 5 days. [facility] Blood specimen (specimen) PERIPHERAL BLOOD / Unknown 05/13/2016 12:32 PM EST 05/13/2016 1:00 PM EST Comment:#2 Narrative Resulting Agency Comment Spec In Lab Que Amaro MD MICROBIOLOGY - BLOOD ORDERABLES Performing Organization Address [facility] Co de Phone Number [facility] [place] [address] * Blood culture (05/13/2016 12:19 PM EST) Blood Culture No growth at 5 days. [facility] Blood specimen (specimen) PERIPHERALLY INSERTED CENTRAL CATHETER / Unknown 05/13/2016 12:19 PM EST 05/13/2016 1:00 PM EST Comment:#1 Narrative Resulting Agency Comment Spec In Lab Que Amaro MD MICROBIOLOGY - BLOOD ORDERABLES Performing Organization Address [facility] Co de Phone Number [facility] [place] [address] * Green Tube HOLD (05/13/2016 10:00 AM EST) Pathologist [facility] Green Hold Sample in lab. [facility] Blood specimen (specimen) Venous Draw / Unknown 05/13/2016 10:00 AM EST 05/13/2016 10:07 AM EST Qeu Amaro MD CHEMISTRY ROCHELLE JENNINGS [facility] [place] [address] * (ABNORMAL) Differential, Automated (05/13/2016 10:00 AM EST) [facility] Neutrophil % 80.4 % [facility] Neutrophil Absolute 9.57(H) 1.70 - 6.10 x10(3)/mc L [facility] Lymph % 11.0 % [facility] Lymphocytes Abs 1.3 0.9 - 3.2 x10(3)/ L [facility] Monocyte % 6.0 % [facility] Monocyte Abs 0.7 0.3 - 0.9 x10(3)/ L [facility] Eos % 1.0 % [facility] Eosinophils Abs 0.1 0.0 - 0.4 x10(3)/ L [facility] Basophil % 0.8 % [facility] Baso Absolute 0.1 0.0 - 0.1 x10(3)/ L [facility] Immature Gran % 0.80 % [facility] Comment: Immature granulocytes(IG's)percentage and absolute count will include metamyelocytes, myelocytes, and promyelocytes. Blood smears from CBCs yielding IG's will be scanned manually for concordance. If this scan disagrees with the automated IG or if promyelocytes are noted, a manual differential will be performed. Immature Gran Absolute 0.10(H) 0.00 - 0.04 x10(3)/mc L [facility] Blood specimen (specimen) 05/13/2016 10:00 AM EST 05/13/2016 10:06 AM EST Narrative Resulting Agency Comment Spec In Lab Que Amaro MD HEMATOLOGY ORD ERABLES Performing Organization Address City/[facility]/ZIP Co de Phone Number [facility] [place] [address] * (ABNORMAL) Hemogram (05/13/2016 10:00 AM EST) White Blood Cell 11.9(H) 4.0 - 9.5 x10(3)/[facility] Red Blood Cell 4.84 4.58 - 5.54 x10(6)/[facility] Hemoglobin 15.7 13.7 - 16.5 gm/dL [facility] Hematocrit 44.1 40.5 - 48.5 % [facility] Mean Cell Volume 91.1 82.9 - 93.1 [facility] Mean Cell Hemoglobin 32.4(H) 27.5 - 32.1 pg [facility] Mean Cell Hemoglobin Concentration 35.6 32.0 - 35.7 gm/dL [facility] Platelet 267 145 - 357 x10(3)/[facility] RDW Standard Deviation 40.6 36.0 - 45.0 [facility] RDW coefficient of variation 12.2 11.4 - 13.8 % [facility] Mean Platelet Volume 9.0 7.6 - 12.9 [facility] NRBC% auto 0.0 % [facility] NRBC Absolute 0.000 0.000 - 0.000 x10(3)/[facility] Blood specimen (specimen) 05/13/2016 10:00 AM EST 05/13/2016 10:06 AM EST Narrative Resulting Agency Comment Spec In Lab Que Amaro MD HEMATOLOGY ORD ERABLES [facility] [place] [address] * Uric acid (05/13/2016 10:00 AM EST) Uric Acid 6.7 3.5 - 8.5 mg/dL [facility] Blood specimen (specimen) 05/13/2016 10:00 AM EST 05/13/2016 10:06 AM EST Narrative Resulting Agency Comment Spec In Lab Que Amaro MD CHEMISTRY ORDTiny JENNINGS Performing Organization Address [facility] Co de Phone Number [facility] [place] [address] * Tacrolimus level (05/13/2016 10:00 AM EST) Tacrolimus 6.9 ng/mL [facility] Comment: Trough therapeutic: ??5-15 ng/mL Performed by ultra-performance liquid chromatography tandem mass spectrometry (UPLCMS/MS). Blood specimen (specimen) 05/13/2016 10:00 AM EST 05/13/2016 11:05 AM EST Narrative Resulting Agency Comment Spec In Lab Que Amaro MD CHEMISTRY ORDTiny JENNINGS Performing Organization Address [facility] Co de Phone Number [facility] [place] [address] * Reticulocyte Count (05/13/2016 10:00 AM EST) Reticulocyte % 1.7 0.7 - 2.6 % [facility] Retic Abs # 0.080 0.030 - 0.120 x10(6)/mcL [facility] Immature Retic% 9.5 0.0 - 15.6 % [facility] Reticulated Hgb 37.6 31.3 - 40.2 pg [facility] Blood specimen (specimen) 05/13/2016 10:00 AM EST 05/13/2016 10:06 AM EST Narrative Resulting Agency Comment Spec In Lab Que Amaro MD HEMATOLOGY ORD ERABLES Performing Organization Address [facility] Co de Phone Number [facility] [place] [address] * Phosphorus (05/13/2016 10:00 AM EST) Pathologist [facility] Phosphorus 2.7 2.5 - 4.5 mg/dL [facility] Blood specimen (specimen) 05/13/2016 10:00 AM EST 05/13/2016 10:06 AM EST Narrative Resulting Agency Comment Spec In Lab Que Amaro MD CHEMISTRY ROCHELLE JENNINGS Performing Organization Address [facility] Co de Phone Number [facility] [place] [address] * (ABNORMAL) Magnesium (05/13/2016 10:00 AM EST) [facility] Magnesium 0.57(L) 0.69 - 1.07 mmol/L [facility] Blood specimen (specimen) 05/13/2016 10:00 AM EST 05/13/2016 10:06 AM EST Narrative Resulting Agency Comment Spec In Lab Que Amaro MD CHEMISTRY ORDTiny JENNINGS Performing Organization Address [facility] Co de Phone Number [facility] [place] [address] * (ABNORMAL) Comprehensive metabolic panel (non-fasting) (05/13/2016 10:00 AM EST) [facility] Glucose 174 65 - 199 mg/dL [facility] Comment:Diabetes: >=200 mg/d L plus symptoms Blood Urea Nitrogen 15 10 - 20 mg/dL [facility] Creatinine 1.39 0.80 - 1.50 mg/dL [facility] Comment: Please note that the pediatric reference intervals supplied above were not validated at [facility]. Results from pediatric patients should be interpreted in conjunction to the patient's age, height and muscle mass. Sodium 136 135 - 145 mmol/L [facility] [...] questions. Chloride 96(L) 98 - 107 mmol/L [facility] Carbon Dioxide 24 22 - 31 mmol/L [facility] Anion Gap 16(H) 5 - 15 mmol/L [facility] Calcium 9.5 8.5 - 10.5 mg/dL [facility] Protein, Total 7.8 6.1 - 8.0 gm/dL [facility] Albumin 4.0 3.2 - 5.2 gm/dL [facility] Aspartate Aminotransferase 18 0 - 39 unit/L [facility] Alanine Aminotransferase 17 0 - 55 unit/L [facility] Alkaline Phosphatase 63 40 - 120 unit/L [facility] Bilirubin, Total 2.4(H) 0.2 - 1.3 mg/dL [facility] Bilirubin, Direct 0.4(H) 0.0 - 0.3 mg/dL [facility] Est Glomerular Filtration Rate 51(L) >=60 [facility] Comment: [...] the following links into your internet browser. [email or web address] Blood specimen (specimen) 05/13/2016 10:00 AM EST 05/13/2016 10:06 AM EST Narrative Resulting Agency Comment Spec In Lab Que Amaro MD CHEMISTRY ORDTiny HORNLENORE Performing Organization Address City/[facility]/ZIP Co de Phone Number [facility] [place] [address] * Cholesterol, total (05/13/2016 10:00 AM EST) Cholesterol, Total 134 <=199 mg/dL [facility] Comment: Recommendations of the NCEP Adult Treatment Panel for the following risk cutoff thresholds for the [place] population: Desirable: <200 mg/dL Borderline High: 200-239 mg/dL High: > or = 240 mg/dL Blood specimen (specimen) 05/13/2016 10:00 AM EST 05/13/2016 10:06 AM EST Narrative Resulting Agency Comment Spec In Lab Que Amaro MD CHEMISTRY ROCHELLE JENNINGS Performing Organization Address [facility] Co de Phone Number [facility] [place] [address] documented in this encounter Visit Diagnoses Diagnosis Kidney replaced by transplant documented in this encounter Care Teams Hog Pusher Relationship Specialty Start Date End Date Urbano Denis DO [address] [place] [address] PCP - General 09/03/12 03/17/22 Ruchi Valles RN Nurse Clinic Transplant Surgery 07/30/15 documented as of this encounter
--- OUTSIDE RECORDS SUMMARY | 2024-02-14 11:31 | XMS_ITS | Encounter Summary ---
[place] [address] Care Team Providers Care Email Manager Name Role Phone Urbano Denis DO Primary Care Provider Encounter Details Date Type Department Care Team (Latest Contact Info) Description 03/25/2016 9:30 AM EDT Laboratory Appointment Lab [address] [place] [phone] Kidney replaced by transplant; Hypothyroidism, unspecified type Social History Tobacco Use Types [...] AM EDT Hospital Encounter Non-[place]vasive [place] [phone] Arrived documented as of this encounter Procedures Procedure Name Priority Date/Time Associated Diagnosis Comments BK QUANT BLOOD RESULT STAT 03/25/2016 9:59 AM EDT Kidney replaced by transplant BKV QUANT BLOOD STAT 03/25/2016 9:59 AM EDT Kidney replaced by transplant HEMOGRAM STAT 03/25/2016 9:59 AM EDT Kidney replaced by transplant DIFFERENTIAL, AUTOMATED STAT 03/25/2016 9:59 AM EDT Kidney replaced by transplant TACROLIMUS LEVEL STAT 03/25/2016 9:59 AM EDT Kidney replaced by transplant RETICULOCYTE COUNT STAT 03/25/2016 9: 59 AM EDT Kidney replaced by transplant CBC (WITH DIFF) STAT 03/25/2016 9:59 AM EDT Kidney replaced by transplant URIC ACID STAT 03/25/2016 9:59 AM EDT Kidney replaced by transplant TSH Routine 03/25/2016 9:59 AM EDT Hypothyroidism, unspecified type Kidney replaced by transplant PHOSPHORUS STAT 03/25/2016 9:59 AM EDT Kidney replaced by transplant MAGNESIUM STAT 03/25/2016 9:59 AM EDT Kidney replaced by transplant CHOLESTEROL, TOTAL STAT 03/25/2016 9: 59 AM EDT Kidney replaced by transplant COMPREHENSIVE METABOLIC PANEL STAT 03/25/2016 9:59 AM EDT Kidney replaced by transplant PROTEIN/CREATININE RATIO, URINE STAT 03/25/2016 9:57 AM EDT Kidney replaced by transplant URINALYSIS WITH REFLEX CULTURE STAT 03/25/2016 9:57 AM EDT Kidney replaced by transplant URINE CULTURE STAT 03/25/2016 9:57 AM EDT documented in this encounter Results * BK Quant Blood Result (03/25/2016 9:59 AM EDT) BKV Blood Result Not Detected [facility] BKV Blood Interp BK Virus Blood Result Interpretation Result: BK Virus not detected log concentration (copies/mL): ??Not detected Assay Range: urine: 2.83-8.83 log copies/mL (6.8x10^2 - 6.8x10^8 copies/mL ) Results are reported as log copies/mL. ??Changes of less than 1.0 log between serial samples may not be clinically significant. Methods: Quantitative real-time polymerase chain reaction (PCR) of viral DNA isolated from plasma was performed using [employer] BKV (ASR) reagents and the Applied OneStopWeb 7500 FAST Real-Time PCR System. In addition, the ??PCR product sequence is confirmed using physical properties (melting curve analysis). This test was developed and its performance determined by the [facility] Molecular Pathology Laboratory. It has not been cleared or approved by the U.S. Food and Drug Administration. This test is used for clinical purposes and should not be considered investigational or for research purposes. The Molecular Pathology Laboratory is certified by the Clinical Laboratory Improvement Act of 1988 and as such is allowed to perform high complexity clinical testing. [facility] Comment: [VERIFIED DATE]04.08.16 Verified By:Fatemeh Garcia (Electronic Signature) Blood specimen (specimen) 03/25/2016 9:59 AM EDT 03/25/2016 10:54 AM EDT Narrative Resulting Agency Comment Spec In Lab Que Amaro MD HEMATOLOGY ORD ERABLES [facility] [place] [address] * Differential, Automated (03/25/2016 9:59 AM EDT) Neutrophil % 67.0 % [facility] Neutrophil Absolute 4.46 1.70 - 6.10 x10(3)/[facility] Lymph % 22.9 % [facility] Lymphocytes Abs 1.5 0.9 - 3.2 x10(3)/[facility] Monocyte % 4.8 % [facility] Monocyte Abs 0.3 0.3 - 0.9 x10(3)/[facility] Eos % 3.6 % [facility] Eosinophils Abs 0.2 0.0 - 0.4 x10(3)/[facility] Basophil % 1.3 % [facility] Baso Absolute 0.1 0.0 - 0.1 x10(3)/[facility] Immature Gran % 0.40 % [facility] Comment: Immature granulocytes(IG's)percentage and absolute count will include metamyelocytes, myelocytes, and promyelocytes. Blood smears from CBCs yielding IG's will be scanned manually for concordance. If this scan disagrees with the automated IG or if promyelocytes are noted, a manual differential will be performed. Immature Gran Absolute 0.03 0.00 - 0.04 x10(3)/[facility] Blood specimen (specimen) 03/25/2016 9:59 AM EDT 03/25/2016 10:12 AM EDT Narrative Resulting Agency Comment Spec In Lab Tal Eagle MD HEMATOLOGY ORDERA BLES Performing Organization Address City/State/[facility] Co de Phone Number [facility] [place] [address] * (ABNORMAL) Hemogram (03/25/2016 9:59 AM EDT) White Blood Cell 6.7 4.0 - 9.5 x10(3)/ L [facility] Red Blood Cell 4.96 4.58 - 5.54 x10(6)/ L [facility] Hemoglobin 16.0 13.7 - 16.5 gm/dL [facility] Hematocrit 47.0 40.5 - 48.5 % [facility] Mean Cell Volume 94.8(H) 82.9 - 93.1 fL [facility] Mean Cell Hemoglobin 32.3(H) 27.5 - 32.1 pg [facility] Mean Cell Hemoglobin Concentration 34.0 32.0 - 35.7 gm/dL [facility] Platelet 247 145 - 357 x10(3)/ L [facility] RDW Standard Deviation 48.3(H) 36.0 - 45.0 fL [facility] RDW coefficient of variation 13.9(H) 11.4 - 13.8 % [facility] Mean Platelet Volume 9.2 7.6 - 12.9 fL [facility] NRBC% auto 0.0 % [facility] NRBC Absolute 0.000 0.000 - 0.000 x10(3)/mc L [facility] Blood specimen (specimen) 03/25/2016 9:59 AM EDT 03/25/2016 10:12 AM EDT Narrative Resulting Agency Comment Spec In Lab Tal Eagle MD HEMATOLOGY ORDERA BLES Performing Organization Address [facility]/ZIP Co de Phone Number [facility] [place] [address] * Tacrolimus level (03/25/2016 9:59 AM EDT) Tacrolimus 6.5 ng/mL [facility] Comment: Trough therapeutic: ??5-15 ng/mL Performed by ultra-performance liquid chromatography tandem mass spectrometry (UPLCMS/MS). Blood specimen (specimen) 03/25/2016 9:59 AM EDT 03/25/2016 11:14 AM EDT Narrative Resulting Agency Comment Spec In Lab Que Amaro MD CHEMISTRY ORDBhargav JENNINGS Performing Organization Address City/[facility]/ZIP Co de Phone Number [facility] [place] [address] * (ABNORMAL) TSH (03/25/2016 9:59 AM EDT) Thyroid Stimulating Hormone 5.38(H) 0.27 - 4.20 mcIU/mL [facility] Blood specimen (specimen) 03/25/2016 9:59 AM EDT 03/25/2016 10:12 AM EDT Narrative Resulting Agency Comment Spec In Lab Que Amaro MD CHEMISTRY ROCHELLE JENNINGS [facility] [place] [address] * (ABNORMAL) Comprehensive metabolic panel (non-fasting) (03/25/2016 9:59 AM EDT) Glucose 152 65 - 199 mg/dL [facility] Comment:Diabetes: >=200 mg/d L plus symptoms Blood Urea Nitrogen 18 10 - 20 mg/dL [facility] Creatinine 1.65(H) 0.80 - 1.50 mg/dL [facility] Comment: Please note that the pediatric reference intervals supplied above were not validated at [facility]. Results from pediatric patients should be interpreted in conjunction to the patient's age, height and muscle mass. Sodium 139 135 - 145 mmol/L [facility] Potassium 4.7 3.5 - 5.0 mmol/L [facility] Comment: Please note: ??Patients with WBC >100,000 may have falsely elevated Potassium levels. ??For accurate Potassium quantification in these patients send serum separator tube (gold top) for subsequent determinations. ??Contact the Clinical Chemistry Laboratory if there are any questions. Chloride 97(L) 98 - 107 mmol/L [facility] Carbon Dioxide 25 22 - 31 mmol/L [facility] Anion Gap 17(H) 5 - 15 mmol/L [facility] Calcium 10.0 8.5 - 10.5 mg/dL [facility] Protein, Total 7.8 6.1 - 8.0 gm/dL [facility] Albumin 4.4 3.2 - 5.2 gm/dL [facility] Aspartate Aminotransferase 30 0 - 39 unit/L [facility] Alanine Aminotransferase 28 0 - 55 unit/L [facility] Alkaline Phosphatase 61 40 - 120 unit/L [facility] Bilirubin, Total 1.6(H) 0.2 - 1.3 mg/dL [facility] Bilirubin, Direct 0.4(H) 0.0 - 0.3 mg/dL [facility] Est Glomerular Filtration Rate 42(L) >=60 [facility] Comment: This estimated [...] the following links into your internet browser. [email or web address] Blood specimen (specimen) 03/25/2016 9:59 AM EDT 03/25/2016 10:12 AM EDT Narrative Resulting Agency Comment Spec In Lab Tal Eagle MD CHEMISTRY ORDERAB LES Performing Organization Address City/[facility]/ZIP Co de Phone Number [facility] [place] [phone] * (ABNORMAL) Magnesium (03/25/2016 9:59 AM EDT) Magnesium 0.66(L) 0.69 - 1.07 mmol/L [facility] Blood specimen (specimen) 03/25/2016 9:59 AM EDT 03/25/2016 10:12 AM EDT Narrative Resulting Agency Comment Spec In Lab Tal Eagle MD CHEMISTRY ORDERAB LES [facility] [place] [address] * Phosphorus (03/25/2016 9:59 AM EDT) Phosphorus 2.7 2.5 - 4.5 mg/dL [facility] Blood specimen (specimen) 03/25/2016 9:59 AM EDT 03/25/2016 10:12 AM EDT Narrative Resulting Agency Comment Spec In Lab Tal Eagle MD CHEMISTRY ORDERAB LES Performing Organization Address City/[facility]/ZIP Co de Phone Number [facility] [place] [address] * (ABNORMAL) Uric acid (03/25/2016 9:59 AM EDT) Uric Acid 9.3(H) 3.5 - 8.5 mg/dL [facility] Blood specimen (specimen) 03/25/2016 9:59 AM EDT 03/25/2016 10:12 AM EDT Narrative Resulting Agency Comment Spec In Lab Tal Eagle MD CHEMISTRY ORDERAB LES Performing Organization Address [facility] Co de Phone Number [facility] [place] [address] * Reticulocyte Count (03/25/2016 9:59 AM EDT) [facility] Reticulocyte % 2.0 0.7 - 2.6 % [facility] Retic Abs # 0.100 0.030 - 0.120 x10(6)/mcL [facility] Immature Retic% 5.7 0.0 - 15.6 % [facility] Reticulated Hgb 37.9 31.3 - 40.2 pg [facility] Blood specimen (specimen) 03/25/2016 9:59 AM EDT 03/25/2016 10:12 AM EDT Narrative Resulting Agency Comment Spec In Lab Tal Eagle MD HEMATOLOGY ORDERA BLES Performing Organization Address [facility]/ZIP Co de Phone Number [facility] [place] [address] * Cholesterol, total (03/25/2016 9:59 AM EDT) Cholesterol, Total 145 <=199 mg/dL [facility] Comment: Recommendations of the NCEP Adult Treatment Panel for the following risk cutoff thresholds for the [place] population: Desirable: <200 mg/dL Borderline High: 200-239 mg/dL High: > or = 240 mg/dL Blood specimen (specimen) 03/25/2016 9:59 AM EDT 03/25/2016 10:12 AM EDT Narrative Resulting Agency Comment Spec In Lab Tal Eagle MD CHEMISTRY ORDERAB LES Performing Organization Address [facility] Co de Phone Number [facility] [place] [address] * (ABNORMAL) Urine culture (03/25/2016 9:57 AM EDT) Urine Culture 1,000-9,000 cfu/ml Gram Positive organisms , probable contaminant(A ) [facility] Urine specimen (specimen) 03/25/2016 9:57 AM EDT 03/25/2016 10:44 AM EDT Narrative Resulting Agency Comment Spec In Lab Que Amaro MD MICROBIOLOGY - GENERAL ORDERABLES Performing Organization Address [facility] Co de Phone Number [facility] [place] [address] * (ABNORMAL) Urinalysis with reflex Culture (03/25/2016 9:57 AM EDT) Glucose, Urine Dipstick Negative Negative mg/dL [facility] Protein, Urine Dipstick 30(A) Negative mg/dL [facility] Bilirubin, Urine Dipstick Negative Negative mg/dL [facility] Comment: Clinical correlation required for positive Urine Bilirubin results as false positive may occur with some drugs and drug related products. If a false positive is suspected a serum total bilirubin should be considered if clinically indicated. Urobilinogen, Urine Dipstick Normal Normal mg/dL [facility] pH, Urn (dipstick) 6.0 5.0 - 8.0 [facility] Blood, Urine Dipstick Negative Negative mg/dL [facility] Ketone, Urine Dipstick Negative Negative mg/dL [facility] Nitrite, Urine Dipstick Negative Negative [facility] Leukocytes, Urine Dipstick Small(A) Negative [facility] Appearance, Urine Dipstick Clear Clear [facility] Specific Wray Urine Automated 1.024 1.002 - 1.030 [facility] Color, Urine Dipstick Yellow Yellow [facility] RBC, Urine 2 0 - 3 /HPF [facility] WBC, Urine 13(H) 0 - 3 /HPF [facility] Bacteria, Urine Rare(A) None /HPF [facility] Squamous Epithelial Cells, Urine <1 <=4 /HPF [facility] Renal Epithelial Cells, Urine <1(H) <=0 /HPF [facility] Reflex to Culture Yes [facility] Urine specimen (specimen) 03/25/2016 9:57 AM EDT 03/25/2016 10:06 AM EDT Narrative Resulting Agency Comment Spec In Lab Que Amaro MD URINE ORDERABL ES Performing Organization Address [facility] Co de Phone Number [facility] [place] [address] * (ABNORMAL) Protein/Creatinine Ratio, urine (03/25/2016 9:57 AM EDT) Creatinine, Urine 137 mg/dL [facility] Protein, Urine 40(H) 0 - 12 mg/dL [facility] Protein / Creatinine Ratio, Urine 0.3 ratio [facility] Urine specimen (specimen) 03/25/2016 9:57 AM EDT 03/25/2016 10:01 AM EDT Narrative Resulting Agency Comment Spec In Lab Tal Eagle MD URINE ORDERABLES Performing Organization Address [facility] Co de Phone Number [facility] [place] [address] documented in this encounter Visit Diagnoses Diagnosis Kidney replaced by transplant Hypothyroidism, unspecified type documented in this encounter Care Teams Email Manager Relationship Specialty Start Date End Date Adeel, Urbano, DO [address] [place] [address] PCP - General 09/03/12 03/17/22 Ruchi Valles RN Nurse Clinic Transplant Surgery 07/30/15 documented as of this encounter
--- OUTSIDE RECORDS SUMMARY | 2024-02-14 11:31 | XMS_ITS | Encounter Summary ---
[place] [address] Care Team Providers Care Garden Labourer Name Role Phone Urbano Denis DO Primary Care Provider [phone] Reason for Referral * Diagnostic Test (Routine) - Duplicate Referral Specialty Diagnoses / Procedures Referred By Humberto flor Referred To Contact Radiology Diagnoses Ureteral stenosis of kidney transplant Procedures IR all procedures Sonu Restrepo MD [facility] [place] [address] [place] [address] Referral ID Status Reason Start Date Expiration Date Visits Requested Visits Authorized [id number] Duplicate Referral Specialty Service Requested 04/04/2016 04/04/2017 1 1 Encounter Details Date Type Department Care Team (Late st Contact Info) Description 03/04/2016 [place] [address] Sonu Restrepo MD [facility] [place] [address] Ureteral stenosis of kidney transplant Social History Tobacco Use Types Packs/Day Years Used Date Smoking Tobacco: Former Cigars Q uit: 01/02/2015 Smokeless Tobacco: Never Comments:cigars, only someti mes Alcohol Use Standard Drinks/Week Comments No 0 [...] AM EDT Hospital Encounter [place] [address] Arrived documented as of this encounter Results * IR all procedures (03/25/2016 2:14 PM EDT) Anatomical Region Laterality Modality Abdomen X-Ray Angiograph y Narrative 03/25/2016 4:27 PM EDT VIR PROCEDURE NOTE ?? Procedure: Antegrade nephrostogram and nephroureterostomy tube exchange. ?? Indication for Procedure: 65 y.o. male with history of transplant kidney c/b ureteral stricture and hydronephrosis. Patient is now s/p 3 of 3 planned ureteroplasty. ?? Procedure events and findings: Informed consent was obtained after the risks, benefits and complications of the procedure were all explained. Due to the painful nature of the procedure, patient was sedated by the IR nurse with split doses of fentanyl and versed. ? Maximum sterile barrier technique used throughout the procedure. The patient was prepped and draped in supine position. Bandmill Operator image obtained. Contrast injection confirmed catheter location. ?? The catheter was cut and an 0.035 wire was advanced into the bladder and the catheter was removed. A 7 Fr sheath was placed. Contrast injection again showed irregularity/stenosis of the distal 2-3 cm of the ureter. A 4 Fr Berenstein catheter was concurrently placed trhough the sheath and into the distal ureter using a glide wire. Pull back contrast study of the ureter performed through the Berenstein catheter. All wires removed and Berenstein catheter position in the proximal ureter. Contrast study performed showing the majority of contrast refluxing into the renal collecting system vs passing through the ureter into the bladder. ??Guide wire was again advanced into the bladder, catheter and sheath removed. Over the wire, a 10.2 Fr catheter placed (an internal-external biliary drain was used; locking loop in bladder, with sideholes extending back into renal collecting system.) Catheter sutured to skin and capped. ?? Medications: Fentanyl 100 mcg IV, Versed 2 mg IV, 1% Lidocaine <10ccs subcutaneous. Antibiotic Prophylaxis: Cipro 500 mg PO Contrast: 20 cc's Omnipaque 350 Fluoro time: 3.9 min Est Blood Loss: <5cc. ?? Complications: No immediate ?? Impression: ?? 1. 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 Some passage of contrast into the bladder, but it is felt that the degree of narrowing would not support urine output from the transplanted kidney. ?? 2. Exchange of 10.2 Fr locking loop drainage catheter. 3. Per discussion with Dr. Amaro, patient will likely undergo surgical ureteral revision. ?? Fellow: Jaylin Moreira, DO Attending: Dr. Nelson ??(I was present and scrubbed for the entire procedure) ?? Santosh Ellsworth MD IMG IR ORDERABLES documented in this encounter Visit Diagnoses Diagnosis Ureteral stenosis of kidney transplant Complications of transplanted kidney Ureteral stenosis of kidney transplant Complications of transplanted kidney documented in this encounter Care Teams Garden Labourer Relationship Specialty Start Date End Date Urbano Denis DO [address] [place] [address] PCP - General 09/03/12 03/17/22 Ruchi Valles RN Nurse Clinic Transplant Surgery 07/30/15 documented as of this encounter
--- OUTSIDE RECORDS SUMMARY | 2024-02-14 11:31 | XMS_ITS | Encounter Summary ---
[place] [address] Care Team Providers Care Supervisor Central Supply Name Role Phone Urbano Denis DO Primary Care Provider Reason for Referral * Diagnostic Test (Routine) - Closed Specialty Diagnoses / Procedures Referred By Humberto flor Referred To Contact Radiology Diagnoses Kidney replaced by transplant Procedures IR all procedures Que Amaro MD [facility] [place] [address] [place] [address] Referral ID Status Reason Start Date Expiration Date V isits Requested Visits Authorized [id number] Closed Specialty Service Requested 02/26/2016 02/25/2017 1 1 Encounter Details Date Type Department Care Team (Late st Contact Info) Description 02/26/2016 10:30 AM EDT Office Visit [place] [address] [facility] [address] Kidney replaced by transplant Social History Tobacco [...] Sign Reading Time Taken Comments Blood Pressure 151/91 02/26/2016 9:48 AM EDT Pulse 58 02/26/2016 9:48 AM EDT Temperature - - Respiratory Rate - - Oxygen Saturation - - Inhaled Oxygen Concentration - - Weight 98.3 kg (216 lb 12.8 oz) 02/26/2016 9:48 AM EDT Height 177.8 cm (5' 10) 02/26/2016 9:48 AM EDT Body Mass Index 31.11 02/26/2016 9:48 AM EDT documented in this encounter Progress Notes * Cody Zavala - 02/26/2016 10:30 AM EDT Follow-Up: Transplant Clinic Date: 02/26/2016 Patient: Cody Bolden Date of Transplant: 09/16/2015 (Kidney) Transplant Surgeon: Sondra History of Present Illness: Cody Bolden is a 65 yo M s/p donor Kidney transplant on 09/16/2015. His post-operative course is notable ureteral stricture and hospital admission on 01/29/16 for coag-negative staph bacteremia. He underwent nephrouretostomy tube placement and balloon ureteroplasty on 01/31, and was disc harged 02/04 on IV vancomycin. Today Mr. Bolden feels well without recent fevers, chills, abdominal pain, or dysuria. He completed his last dose of vancomycin yesterday, 02/24. Daily fluid intake is approximately 2-3 L per day, and he is urinating without issue, keeping the nephrouretostomy tube capped. He continues his immune suppression regimen of prograf 1mg BID and cellcept 250mg BID without issue, and of note did take his morning dose today before having his trough drawn. Current Meds: Current Outpatient Prescriptions Medication Sig Dispense Refill ??? valGANciclovir (VALCYTE) 450 mg Tablet Take 1 tablet by mouth 2 times daily. 30 tablet 3 ??? omeprazole (PRILOSEC) 20 mg Capsule, Delayed Release(E.C.) Take 20 mg by mouth daily as needed. ??? mycophenolate (CELLCEPT) 250 mg Capsule Take 1 capsule by mouth 2 times daily. ??? sulfamethoxazole-trimethoprim (BACTRIM;SEPTRA) 400-80 mg Tablet Take 1 tablet by mouth every other day for 364 days. 15 tablet 11 ??? potassium phosphate, monobasic, (K-PHOS) 500 mg [...] mg by mouth 2 times daily. ??? levothyroxine (SYNTHROID) 75 mcg Tablet Take 75 mcg by mouth daily. ??? acetaminophen (TYLENOL) 325 mg Tablet Take 2 tablets by mouth every 4 hours as needed for Pain.(Patient not taking: Reported on 02/12/2016) 30 tablet 1 ??? DILTiazem (DILTIAZEM CD) 120 mg Capsule, Sust. Release 24 hr Take 1 capsule by mouth daily. 30 capsule 11 ??? clopidogrel (PLAVIX) 75 mg Tablet Take 1 tablet by mouth daily. 30 tablet 0 No current facility-administered medications [...] due to coagulase-negative Staphylococcus R78.81 Past Medical History: Past Medical History Diagnosis [...] MD at [facility] OR ??? Pro transplantation of kidney N/A 09/16/2015 @KIDNEY TRANSPLANT, WITHOUT RECIPIENT NEPHRECTOMY performed by Franko Larkin MD at [facility] OR ??? Pro transplant, prep cadaver renal graft N/A 09/16/2015 @PREPARATION CADAVERIC RENAL ALLOGRAFT performed by Franko Larkin MD at [facility] OR ??? N/A 09/16/2015 ORGAN ACQUISITION RENAL, CADAVERIC performed by Franko Larkin MD at [facility] OR Family History: No family history on file. Social History: Social History Substance Use Topics ??? Smoking status: Former Smoker Types: Cigars Quit date: 01/02/2015 ??? Smokeless tobacco: Never Used Comment: cigars, only sometimes ??? Alcohol use No ROS: Review of Systems Vital Signs: BP (!) 151/91 (BP Location (NBP): Right arm, Patient Position: Sitting, BP Cuff Sizes:Adult (25-34 cm)) Pulse 58 Ht 177.8 cm (5' 10) Wt 98.3 kg (216 lb 12.8 oz) BMI 31.11 kg/m2 Physical Exam: Objective Gen - NAD sitting comfortably. CV - RRR, no MRG appreciated. Pulm - CTAB, breathes comfortably at rest. Abd - Soft, NTND. NU tube site clean without erythema or drainage, bandage changed. Incision well healed. Medial to the incision site there is a small ~2-3 cm diameter patch of erythema with a superficial central scab without pus or drainage. Ext - PICC in place, R arm Labs: Lab Results Component Value Date CREATININE 1.56 (H) 02/26/2016 K 3.9 02/26/2016 GLUCOSE 141 02/26/2016 HCT 41.2 02/26/2016 HGB 14.5 02/26/2016 WBC 6.9 02/26/2016 PHOS 2.5 02/26/2016 Lab Results Component Value Date WBC 6.9 02/26/2016 RBC 4.53 (L) 02/26/2016 HGB 14.5 02/26/2016 HCT 41.2 02/26/2016 MCV 90.9 02/26/2016 MCH 32.0 02/26/2016 MCHC 35.2 02/26/2016 PLATELET 189 02/26/2016 RDWCV 14.7 (H) 02/26/2016 Vanc Trough (02/24): 12.4 Tacrolimus Trough (02/25): 8.5 ng/mL Assessment: Cody Bolden is recovering well following his recent admission for bacteremia. His creatinine today of 1.56 is elevated compared with his post- urertoplasty value of 1.23 on 02/02. In discussion with Dr. Meredith, he may benefit from a third balloon ureteroplasty attempt prior to considering a ure teral reconstruction procedure. His incision and NU tube site are well appearing. The small patch of erythema appears superficial and does not involve his tube site. He will follow up with ID today now having completed his IV abx course. During the visit, I examined his wound, reviewed his immunosuppression, and instructed Mr. Bolden regarding hydration and nutrition. Plan: 1. Ureteral Stricture: Repeat balloon ureteroplasty, nephroureterogram scheduled 03/04. 2. Resolved Bacteremia: F/u ID reccomendations 3. Immune Supression: Prograf: Continue 1mg BID MMF: Continue 250 mg BID 4. Blood Pressure management: No changes to current regimen. 5. Calcium and phosphorus balance reviewed. Continue supplementation: Yes. 6. Magnesium balance reviewed: Continue supplementation: Yes. 7. Pharmacy needs addressed. No concerns today. 8. Return to clinic: 1 month. Cody Zavala, MS4 Transplant Sub-administration intern Pg [id number] I have seen the patient and reviewed the resident's above history and I agree with the details as written. The assessment and plan were formulated in discussion with me and I agree with them as documented. --Graft function: creatinine stable in 1.5 range today. NU tube remains internalized and we arranged for a repeat nephrostogram through IR for next week. I spoke with Chip Forkenn today and he would like to try one additional dilation attempt with conversion to a nephrostomy tube at the same procedure. Await findings on the study and will discuss with Santosh Arredondo as we may be headed to a urologic recontruction if this last planned treatment does not address the issue. -- ID: finished vancomycin course yesterday and his PICC line was removed in the ID clinic. Greatlyappreciate all of the assistance from the ID team. -- Immunosuppression reviewed and adjusted: Prograf: tacrolimus level was sent but will not be a true trough level today as patient took his morning dose before labs were drawn. He is currently on 07/06 Prednisone: none Cellcept: 250 mg po bid -- Hypertension management: no adjustments were required today -- Electrolytes: Calcium and phosphorus balance reviewed. Magnesium balance reviewed. -- RTC: one month for routine visit. Additional visits TBD based upon findings on his nephrostogramstudy next week. Await final results. Pharmacy needs addressed. No concerns today. * Herlinda Bell, RD - 02/26/2016 10:30 AM EDT [facility] Post Transplant Nutrition Follow Up Date: 02/27/2016 Patient: Cody Bolden Transplant Date: 09/16/15 [place] organ UNOS diagnosis: Transplant: Mr. Cody Bolden is a White Not nor 65 y.o. male who is Status Post Kidney transplantation on 09/16/15. Patient was seen by Nutrition services on 02/26/2016 for follow up. Wt Readings from Last 3 Encounters: 02/26/16 98 kg (216 lb) 02/26/16 98.3 kg (216 lb 12.8 oz) 02/15/16 95.3 kg (210 lb) Today's vital signs: BP (!) 151/91 (BP Location (NBP): Right arm, Patient Position: Sitting, BP Cuff Sizes: Adult (25-34cm)) Pulse 58 Ht 177.8 cm (5' 10) Wt 98.3 kg (216 lb 12.8 oz) BMI 30.99 kg/m2 Estimated body mass index is 30.99 kg/(m^2) as calculated from the following: Height as of this encounter: 177.8 cm (5' 10). Weight as of an earlier encounter on 02/26/16: 98 kg (216 lb). Weight pre-Txp: 100.7 Kg (222 lbs) BMI: 31.9 Lab Results Component Value Date HGB 14.5 02/26/2016 HCT 41.2 02/26/2016 NA 138 02/26/2016 K 3.9 02/26/2016 BUN 17 02/26/2016 CREATININE 1.56 (H) 02/26/2016 GLUCOSE 141 02/26/2016 CALCIUM 9.8 02/26/2016 MAGNESIUM 0.59 (L) 02/26/2016 PHOS 2.5 02/26/2016 ALBUMIN 4.3 02/26/2016 Cholesterol (in eD-H the component name CHLPL=Cholesterol) Lab Results Component Value Date CHLPL 140 02/26/2016 Assessment: This auto service writer reviewed patient's labs with him and his . Reviewed foods rich in magnesium; he will also continue supplementation. Patient had breakfast this morning prior to lab draw and he also took his Prograf. Plan: Follow up next clinic visit and prn. He will return to clinic in 2 weeks. Remain available for any nutrition questions/concerns in the interim. documented in this encounter Plan of Treatment Upcoming Encounters Date Type Department Care Team (Late st Contact Info) Description 04/15/2024 10:00 AM EDT Hospital Encounter Non-[place] [address] Arrived Scheduled Orders Name Type Priority Associated Diagnoses Orde r Schedule BKV Quant Blood Lab STAT Kidney replaced by transplant Expected: 02/25/2016 (Approximate), Expires: 08/23/2016 documented as of this encounter Procedures Procedure Name Priority Date/Time Associated Diagnosis Comments BK QUANT URINE RESULT STAT 02/26/2016 10:00 AM EDT Kidney replaced by transplant BKV QUANT URINE STAT 02/26/2016 10:00 AM EDT Kidney replaced by transplant HEMOGRAM STAT 02/26/2016 10:00 AM EDT Kidney replaced by transplant DIFFERENTIAL, AUTOMATED STAT 02/26/2016 10:00 AM EDT Kidney replaced by transplant GREEN TUBE HOLD STAT 02/26/2016 10:00 AM EDT TACROLIMUS LEVEL STAT 02/26/2016 10:0 0 AM EDT Kidney replaced by transplant URINALYSIS WITH REFLEX CULTURE STAT 02/26/2016 10:00 AM EDT Kidney replaced by transplant RETICULOCYTE COUNT STAT 02/26/2016 10 :00 AM EDT Kidney replaced by transplant CBC (WITH DIFF) STAT 02/26/2016 10:00 AM EDT Kidney replaced by transplant URINE CULTURE STAT 02/26/2016 10:00 AM EDT URIC ACID STAT 02/26/2016 10:00 AM EDT Kidney replaced by transplant PHOSPHORUS STAT 02/26/2016 10:00 AM EDT Kidney replaced by transplant MAGNESIUM STAT 02/26/2016 10:00 AM EDT Kidney replaced by transplant CHOLESTEROL, TOTAL STAT 02/26/2016 10 :00 AM EDT Kidney replaced by transplant COMPREHENSIVE METABOLIC PANEL STAT 02/26/2016 10:00 AM EDT Kidney replaced by transplant documented in this encounter Results * IR all procedures (03/04/2016 1:55 PM EDT) Anatomical Region Laterality Modality Abdomen X-Ray Angiograph y Narrative 03/04/2016 2:41 PM EDT VIR PROCEDURE NOTE Procedure: Antegrade Nephrostogram and Ureteral Dilation Indication for Procedure: Per Dr. Moreira, 65 y.o. male with PMH including DMII, HTN and HCV s/p recent DDKT (09/16/15). His post-operative course was notable for recurrent UTIs requiring readmission on both 11/12/15 and 12/07/15. 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 ? VIR history: 12/29/15: LLQ transplant nephrostomy tube placement (8-Fr locking loop PCN) 01/01/16: Percutaneous nephrostomy check, ureteral stricture balloon dilatation, nephroureterostomy tube placement 02/01/16: Balloon dilation of mid ureteral stricture to 7 mm. Nephrostomy tube up sized to 10.2 Fr. ? The patient now returns for follow-up evaluation of the nephroureteral stent and UPJ stricture. Request antegrade nephrostogram and ureteral dilation. Patient is on Plavix. Procedure events and findings: Informed consent was obtained after the risks, benefits and complications of the procedure were all explained. Due to the painful nature of the procedure, patient was sedated by the IR nurse with split doses of fentanyl and versed. ? Maximum sterile barrier technique used throughout the procedure. The patient was prepped and draped in supine position. Export Packer image obtained. Contrast injection confirmed catheter location. The catheter was cut and an 0.035 wire was advanced into the bladder and the catheter was removed. A 7 Fr sheath was placed. Contrast injected showed stenosis of the distal 2-3 cm of the ureter. Over the wire, a 7 mm angioplasty balloon advanced, and stenosis dilated. Contrast injection showed stenosis of the distal ~1 cm of the ureter. 7 mm plasty repeated, repeat contrast injection via sheath showed mild residual stenosis. Over the wire, a 10.2 Fr catheter placed (an internal-external biliary drain was used; locking loop in bladder, with sideholes extending back into renal collecting system.) Catheter sutured to skin and capped. Medications: Fentanyl 150 mcg IV, Versed 3 mg IV, 1% Lidocaine <10ccs subcutaneous. ??Antibiotic Prophylaxis: ??none ? Est Blood Loss: <5cc. Complications: ??No immediate Impression: 1. 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 2. 7 mm dilatation of ureteral stenosis (3/3 planned dilatations). 3. Patient to return in approximately 4 weeks for antegrade study. Resident/Fellow: ??Henrique Restrepo Attending: Dr. Ellsworth I was present throughout this procedure. Que Amaro MD IMG IR ORDERAB LES * BK Quant Urine Result (02/26/2016 10:00 AM EDT) BKV Urine Result Positive [facility] BKV Urine Interp BK Virus Urine Result Interpretation Result: Positive for BK Virus log concentration (copies/mL urine): 3.20 log copies/mL (1.6x10^3 copies/mL) Assay Range: urine: 2.83-8.83 log copies/mL (6.8x10^2 - 6.8x10^8 copies/mL ) Results are reported as log copies/mL. ??Changes of less than 1.0 log between serial samples may not be clinically significant. Methods: Quantitative real-time polymerase chain reaction (PCR) of viral DNA isolated from urine was performed using [employer] BKV (ASR) reagents and the [employer] Biosystems 7500 FAST Real-Time PCR System. In addition, the PCR product sequence is confirmed using physical properties (melting curve analysis). This test was developed and its performance determined by the [facility] Molecular Pathology Laboratory. It has not been cleared or approved by the U.S. Food and Drug Administration. This test is used for clinical purposes and should not be considered investigational or for research purposes. The Molecular Pathology Laboratory is certified by the Clinical Laboratory Improvement Act of 1988 and as such is allowed to perform high complexity clinical testing. [facility] Comment: [VERIFIED DATE]02.29.16 Verified By:Jimmy Gleason (Electronic Signature) Urine specimen (specimen) 02/26/2016 10:00 AM EDT 02/26/2016 2:24 PM EDT Narrative Resulting Agency Comment Spec In Lab Que Amaro MD HEMATOLOG[place] [address] * Urine culture (02/26/2016 10:00 AM EDT) Pathologist [facility] Urine Culture No growth (Less than 1,000 cfu/ml). [facility] Urine specimen obtained by clean catch procedure (specimen) 02/26/2016 10:00 AM EDT 02/26/2016 10:52 AM EDT Narrative Resulting Agency Comment Spec In Lab Que Amaro MD MICROBIOLOGY - GENERAL ORDERABLES Performing Organization Address City/[facility]/ZIP [place] [address] * Green Tube HOLD (02/26/2016 10:00 AM EDT) Pathologist [facility] Green Hold Sample in lab. [facility] Blood specimen (specimen) Venous Draw / Unknown 02/26/2016 10:00 AM EDT 02/26/2016 10:26 AM EDT Tal Eagle MD CHEMISTRY ORDERAB LES Performing Organization Address City/[facility]/ZIP Co de Phone Number [facility] [place] [address] * Differential, Automated (02/26/2016 10:00 AM EDT) Neutrophil % 67.9 % [facility] Neutrophil Absolute 4.65 1.50 - 6.30 x10(3)/[facility] Lymph % 23.0 % [facility] Lymphocytes Abs 1.6 1.0 - 3.6 x10(3)/[facility] Monocyte % 4.2 % [facility] Monocyte Abs 0.3 0.2 - 1.0 x10(3)/[facility] Eos % 3.5 % [facility] Eosinophils Abs 0.2 0.0 - 0.5 x10(3)/[facility] Basophil % 1.0 % [facility] Baso Absolute 0.1 0.0 - 0.2 x10(3)/[facility] Immature Gran % 0.40 % [facility] Comment: Immature granulocytes(IG's)percentage and absolute count will include metamyelocytes, myelocytes, and promyelocytes. Blood smears from CBCs yielding IG's will be scanned manually for concordance. If this scan disagrees with the automated IG or if promyelocytes are noted, a manual differential will be performed. Immature Gran Absolute 0.03 0.00 - 0.05 x10(3)/[facility] Blood specimen (specimen) 02/26/2016 10:00 AM EDT 02/26/2016 10:25 AM EDT Narrative Resulting Agency Comment Spec In Lab Que Amaro MD HEMATOLOGY ORD ERABLES Performing Organization Address City/State/[facility] Co de Phone Number [facility] [place] [address] * (ABNORMAL) Hemogram (02/26/2016 10:00 AM EDT) White Blood Cell 6.9 4.0 - 10.0 x10(3)/mc L [facility] Red Blood Cell 4.53(L) 4.63 - 6.08 x10(6)/mc L [facility] Hemoglobin 14.5 13.7 - 17.5 gm/dL [facility] Hematocrit 41.2 40.0 - 51.0 % [facility] Mean Cell Volume 90.9 79.0 - 92.0 fL [facility] Mean Cell Hemoglobin 32.0 25.6 - 32.2 pg [facility] Mean Cell Hemoglobin Concentration 35.2 32.0 - 36.5 gm/dL [facility] Platelet 189 145 - 370 x10(3)/mc L [facility] RDW Standard Deviation 48.6(H) 35.0 - 46.0 fL [facility] RDW coefficient of variation 14.7(H) 10.9 - 14.4 % [facility] Mean Platelet Volume 9.3 9.0 - 12.0 fL [facility] NRBC% auto 0.0 % [facility] NRBC Absolute 0.000 0.000 - 0.012 x10(3)/mc L [facility] Blood specimen (specimen) 02/26/2016 10:00 AM EDT 02/26/2016 10:25 AM EDT Narrative Resulting Agency Comment Spec In Lab Que Amaro MD HEMATOLOGY ORD ERABLES Performing Organization Address [facility] Co de Phone Number [facility] [place] [address] * Tacrolimus level (02/26/2016 10:00 AM EDT) Tacrolimus 8.5 ng/mL [facility] Comment: Trough therapeutic: ??5-15 ng/mL Performed by ultra-performance liquid chromatography tandem mass spectrometry (UPLCMS/MS). Blood specimen (specimen) 02/26/2016 10:00 AM EDT 02/26/2016 11:05 AM EDT Narrative Resulting Agency Comment Spec In Lab Que Amaro MD CHEMISTRY ORDE DICK Performing Organization Address [facility] Co de Phone Number [facility] [place] [address] * (ABNORMAL) Urinalysis with reflex Culture (02/26/2016 10:00 AM EDT) Glucose, Urine Dipstick Negative Negative mg/dL [facility] [...] [facility] Blood, Urine Dipstick Negative Negative mg/dL [facility] Ketone, Urine Dipstick Negative Negative mg/dL [facility] Nitrite, Urine Dipstick Negative Negative [facility] Leukocytes, Urine Dipstick Small(A) Negative [facility] Appearance, Urine Dipstick Clear Clear [facility] Specific [place] Urine Automated 1.014 1.002 - 1.030 [facility] Color, Urine Dipstick Yellow Yellow [facility] RBC, Urine 1 0 - 3 /HPF [facility] WBC, Urine 4(H) 0 - 3 /HPF [facility] Reflex to Culture Yes [facility] Urine specimen obtained by clean catch procedure (specimen) 02/26/2016 10:00 AM EDT 02/26/2016 10:26 AM EDT Narrative Resulting Agency Comment Spec In Lab Que Amaro MD URINE ORDERABL ES [facility] [place] [address] * (ABNORMAL) Reticulocyte Count (02/26/2016 10:00 AM EDT) Reticulocyte % 2.7(H) 0.5 - 2.4 % [facility] Retic Abs # 0.120(H) 0.027 - 0.095 x10(6)/mc L [facility] Immature Retic% 11.4 2.3 - 15.9 % [facility] Reticulated Hgb 39.5(H) 28.5 - 38.9 pg [facility] Blood specimen (specimen) 02/26/2016 10:00 AM EDT 02/26/2016 10:25 AM EDT Narrative Resulting Agency Comment Spec In Lab Que Amaro MD HEMATOLOGY ORD ERABLES Performing Organization Address City/[facility]/ZIP Co de Phone Number [facility] [place] [address] * (ABNORMAL) Uric acid (02/26/2016 10:00 AM EDT) Uric Acid 8.6(H) 3.5 - 8.5 mg/dL [facility] Blood specimen (specimen) 02/26/2016 10:00 AM EDT 02/26/2016 10:25 AM EDT Narrative Resulting Agency Comment Spec In Lab Que Amaro MD CHEMISTRY ROCHELLE JENNINGS Performing Organization Address [facility] Co de Phone Number [facility] [place] [address] * (ABNORMAL) Magnesium (02/26/2016 10:00 AM EDT) Magnesium 0.59(L) 0.69 - 1.07 mmol/L [facility] Blood specimen (specimen) 02/26/2016 10:00 AM EDT 02/26/2016 10:25 AM EDT Narrative Resulting Agency Comment Spec In Lab Que Amaro MD CHEMISTRY ROCHELLE JENNINGS Performing Organization Address [facility]/ZIP Co de Phone Number [facility] [place] [address] * Phosphorus (02/26/2016 10:00 AM EDT) Phosphorus 2.5 2.5 - 4.5 mg/dL [facility] Blood specimen (specimen) 02/26/2016 10:00 AM EDT 02/26/2016 10:25 AM EDT Narrative Resulting Agency Comment Spec In Lab Que Amaro MD CHEMISTRY ROCHELLE JENNINGS Performing Organization Address City/[facility]/ZIP Co de Phone Number [facility] [place] [address] * (ABNORMAL) Comprehensive metabolic panel (non-fasting) (02/26/2016 10:00 AM EDT) Glucose 141 65 - 199 mg/dL [facility] Comment:Diabetes: >=200 mg/d L plus symptoms Blood Urea Nitrogen 17 10 - 20 mg/dL [facility] Creatinine 1.56(H) 0.80 - 1.50 mg/dL [facility] Comment: Please note that the pediatric reference intervals supplied above were not validated at [facility]. Results from pediatric patients should be interpreted [...] - 10.5 mg/dL [facility] Protein, Total 7.6 6.1 - 8.0 gm/dL [facility] Albumin 4.3 3.2 - 5.2 gm/dL [facility] Aspartate Aminotransferase 30 0 - 39 unit/L [facility] Alanine Aminotransferase 30 0 - 55 unit/L [facility] Alkaline Phosphatase 71 40 - 120 unit/L [facility] Bilirubin, Total 1.0 0.2 - 1.3 mg/dL [facility] Bilirubin, Direct 0.2 0.0 - 0.3 mg/dL [facility] Est Glomerular Filtration Rate 45(L) >=60 [facility] Comment: This [...] the following links into your internet browser. [email or web address] Blood specimen (specimen) 02/26/2016 10:00 AM EDT 02/26/2016 10:25 AM EDT Narrative Resulting Agency Comment Spec In Lab Que Amaro MD CHEMISTRY ROCHELLE JENNINGS Performing Organization Address [facility] Co de Phone Number [facility] [place] [address] * Cholesterol, total (02/26/2016 10:00 AM EDT) Cholesterol, Total 140 <=199 mg/dL [facility] Comment: Recommendations of the NCEP Adult Treatment Panel for the following risk cutoff thresholds for the [place] population: Desirable: <200 mg/dL Borderline High: 200-239 mg/dL High: > or = 240 mg/dL Blood specimen (specimen) 02/26/2016 10:00 AM EDT 02/26/2016 10:25 AM EDT Narrative Resulting Agency Comment Spec In Lab Que Amaro MD CHEMISTRY ROCHELLE JENNINGS Performing Organization Address [facility]/ZIP Co de Phone Number [facility] [place] [address] documented in this encounter Visit Diagnoses Diagnosis Kidney replaced by transplant Kidney replaced by transplant documented in this encounter Care Teams Supervisor Central Supply Relationship Specialty Start Date End Date Urbano Denis DO [address] [place] [address] PCP - General 09/03/12 03/17/22 Hai STANLEY,Ruchi Nurse Clinic Transplant Surgery 07/30/15 documented as of this encounter
--- OUTSIDE RECORDS SUMMARY | 2024-02-14 11:31 | XMS_ITS | Encounter Summary ---
Author Organization [facility] [place] [address] Care Team Providers Care Field Cane Scaler Helper Name Role Phone Urbano Denis DO Primary Care Provider [phone] Reason for Visit * Reason Comments Follow-up * Auth/Cert Specialty Diagnoses / Procedures Referred By Humberto flor Referred To Contact Diagnoses Fever FEVER, S/P KIDNEY TRANSPLANT Referral ID Status Reason Start Date Expiration Date Visits Re quested Visits Authorized [id number] 1 1 Encounter Details Date Type Department Care Team (Late st Contact Info) Description 04/23/2016 2:20 PM EDT [place] [address] Santosh Arredondo MD [facility] [place] [address] Ureteral stricture of left kidney transplant Social [...] Sign Reading Time Taken Comments Blood Pressure 106/65 04/23/2016 1:00 PM EDT Pulse 61 04/23/2016 1:00 PM EDT Temperature 36.3 ??C (97.3 ??F) 04/23/2016 1:00 PM ED T Respiratory Rate 12 04/23/2016 1:00 PM EDT Oxygen Saturation 97% 04/23/2016 1:00 PM EDT Inhaled Oxygen Concentration - - Weight 97.2 kg (214 lb 3.2 oz) 04/23/2016 1:00 P M EDT Height - - Body Mass Index 30.73 02/26/2016 12:10 PM EDT documented in this encounter Progress Notes * Santosh Arredondo MD - 04/23/2016 2:20 PM EDT Images from the original note were not included. Patient Name: Cody Bolden Date of Service: 04/23/2016 Primary Care Provider: URBANO DENIS DO Reason for Visit: Cody Bolden is a 65 y.o. male comes for a preop visit prior repair of a transplant ureteral stricture. 09/17/2015 Donor renal transplant for nodular glomerulosclerosis [...] stricture of distal 2-3cm of transplant ureter Currently the patient feels well, capped nephro-uretero tube o, urinating without difficulty, no dysuria or hematuria, no fever/chills, no abdominal pain or pain over kidney [place] capacity up to 400cc in the morning Patient Active Problem List Diagnosis ??? Bacteremia due to coagulase-negative Staphylococcus ??? [...] ??? Hematuria PSHx Bilateral inguinal hernias with [id number] Shoulder surgery Knee arthroscopy Vasectomy Medications: Reviewed Allergies: Reviewed Physical Exam: Vital Signs are reviewed. The patient appears healthy and in no distress. The abdomen is benign. There are no masses or organomegaly. His transplant is not tender. Tube site OK Lab values are reviewed 02/11 Cr 1.57 [id number] 04/2016 Hb 16.2, Plt 231, Cr 1.44, eGFR 49 X-rays are reviewed 01/01/201603/2016 N-gram Impression: #1: Ureteral stricture sp donor transplantation. Failed dilitation #2: Hx of staph and enterococcal sepsis. Plan: Left Psoas hitch or Boari flap with Dr Amaro. If bladder not easily mobile we will consider a ureteroureterostomy using his [place] ureter (would require a left nephrectomy). We discussed the planned procedure including the pre/intr and post op care and decision making. I discussed the risks of bleeding/infection/injury to surrounding structures (nerves/blood vessesl/intestines/transplant Etc)/leaks and recurrent stricture, loss of transplant, unexpected complications (r eoperation/ICU care/prolonged hospital stay etc). All questions answered. He will do a preop Mag Citrate bowel prep. 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
--- OUTSIDE RECORDS SUMMARY | 2024-02-14 11:31 | XMS_ITS | Encounter Summary ---
Author Organization [facility] [address] Care Team Providers Care Operator Vacuum Name Role Phone AdeelUrbano boland Primary Care Provider [phone] Encounter Details Date Type Department Care Team (Late st Contact Info) Description 02/08/2016 Notes Only Infectious Disease at [facility] [place] [address] Es Arreaga, RN Social History Tobacco Use Types Packs/Day [...] as of this encounter Progress Notes * Es Arreaga RN - 02/08/2016 3:29 PM EDT OPAT Program OPAT: Order / Recommendation for Post Discharge IV Antibiotic Management?? ID Diagnosis: Bacteremia, secondary to Urinary Infection Microorganisms being treated: Coag neg staph Antibiotic Allergies: No known allergies Antibiotic (one line for each ABx): Vancomycin 1.5g IV daily Antibiotic (one line for each ABx): recommend vanco trough February 05 just prior to dose and every 3 days thereafter, with a goal of 10-15 Start date: 02/02/2016 Anticipated stop date: 02/23/2016 Labs: Every Thursday: CBC, CMP (Vanco trough every 3 days after 02/06/16) Last documented weight (kg): 92.3 kg (203 lb 8 oz) Last documented height (cm): 180.3 cm (5' 11) Responsible Attending: Dina Moon DO Vanco trough from 02/06/16 was 16.4; in that we are treating CoNS we really only need to keep the trough 10-15. I called the Infusion Suite @ [facility] and asked them to please decrease the dose to Vanco 1.25 gms IV q24h. Cr 1.87 up from 1.36. This is per order Dr Dina Moon. documented in this encounter Plan of Treatment Upcoming Encounters Date Type Department Care Team (Late st Contact Info) Description 04/15/2024 10:00 AM EDT Hospital Encounter Non-Invasive [place] [address] Arrived documented as of this encounter Visit Diagnoses Not on filedocumented in this encounter Care Teams Operator Vacuum Relationship Specialty Start Date End Date Urbano Denis DO [address] [place] [address] PCP - General 09/03/12 03/17/22 Ruchi Valles RN Nurse Clinic Transplant Surgery 07/30/15 documented as of this encounter
--- OUTSIDE RECORDS SUMMARY | 2024-02-14 11:31 | XMS_ITS | Encounter Summary ---
[facility] Organization [facility] [place] [address] Care Team Providers Care Coat Room Attendant Name Role Phone Adeel Urbano KIRBY Primary Care Provider Encounter Details Date Type Department Care Team (Late st Contact Info) Description 03/13/2016 Telephone [place] [address] Marisela Metcalf, RN Social History Tobacco Use [...] Notes * Telephone Encounter - Marisela Metcalf LPN - 03/13/2016 4:25 PM EDT Pt's Mara called in concerned with pain pt is having in left upper arm since PICC line was removed 02/25. Mara states no redness, warmth, swelling or new numbness. Per Dr. Amaro: 1. Tylenol and warm compresses for pain 2. If symptom do not improve or worsen call back for further evaluation. Mara states understanding and in agreement with plan. Marisela Metcalf LPN Solid Organ Transplant documented in this encounter Plan of Treatment Upcoming Encounters Date Type Department Care Team (Late st Contact Info) Description 04/15/2024 10:00 AM EDT Hospital Encounter Non-Invasive [place] [address] Arrived documented as of this encounter Visit Diagnoses Not on filedocumented in this encounter Care Teams Coat Room Attendant Relationship Specialty Start Date End Date Urbano Denis DO [facility] [address] [place] [address] PCP - General 09/03/12 03/17/22 Ruchi Valles RN Nurse Clinic Transplant Surgery 07/30/15 documented as of this encounter
--- OUTSIDE RECORDS SUMMARY | 2024-02-14 11:31 | XMS_ITS | Encounter Summary ---
[place] [address] Care Team Providers Care Supervisor Air Conditioning Installer Name Role Phone Albania Denis DO Primary Care Provider Reason for Referral * Diagnostic Test (Routine) - Duplicate Referral Specialty Diagnoses / Procedures Referred By Contac t Referred To Contact Radiology Diagnoses Ureteral stenosis of kidney transplant Procedures IR all procedures Sonu Restrepo MD [facility] [address] [place] [address] Referral ID Status Reason Start Date Expiration Date Visits Requested Visits Authorized [id number] Duplicate Referral Specialty Service Requested 04/04/2016 04/04/2017 1 1 Reason for Visit * Diagnostic Test (Routine) - Duplicate Referral Specialty Diagnoses / Procedures Referred By Contpaula t Referred To Contact Radiology Diagnoses Ureteral stenosis of kidney transplant Procedures IR all procedures Sonu Restrepo MD [facility] [place] [address] [place] [address] Referral ID Status Reason Start Date Expiration Date Visits Requested Visits Authorized [id number] Duplicate Referral Specialty Service Requested 04/04/2016 04/04/2017 1 1 Encounter Details Date Type Department Care Team (Latest Contact Info) Description 03/25/2016 11:54 AM EDT - 03/25/2016 11:59 PM EDT Hospital Encounter Radiology at [facility] [place] [address] Santosh Ellsworth MD [facility] [place] [address] Ureteral stenosis of kidney transplant Discharge Disposition: Home Social History Tobacco Use [...] Sign Reading Time Taken Comments Blood Pressure 133/65 03/25/2016 3:00 PM EDT Pulse 60 03/25/2016 2:16 PM EDT Temperature 35.9 ??C (96.6 ??F) 03/25/2016 2:16 PM ED T Respiratory Rate 12 03/25/2016 3:00 PM EDT Oxygen Saturation 96% 03/25/2016 3:00 PM EDT Inhaled Oxygen Concentration - - Weight - - Height - - Body Mass Index - - documented in this encounter Discharge Instructions * Discharge Instructions* Kitty Issa RN - 03/25/2016 2:39 PM EDT Images from the original note were not included. [facility] Vascular and Interventional Radiology Discharge Instructions for Nephrostomy (Kidney) Tube Care You have had a nephrostomy (kidney) tube placed because you have a blockage of urine flow between your kidney and bladder. The nephrostomy tube will allow urine to drain from your kidney outside intoa bag or inside into your bladder. If your tube is connected to a drainage bag it is important to empty it regularly. A nephrostomy tube is a thin catheter placed into your kidney to drain urine. You may have one tubein a kidney or two tubes, one in each kidney. The urine collects in a bag attached to the tube. In most cases, the bag is attached to your leg. Sometimes the catheter tube has a valve that lets you drain the urine into the toilet or other container. You may need a nephrostomy tube if you have a blockage or a hole in your urinary tract. The blockage may be caused by a kidney stone, infection, scar tissue, or a tumor. If you have only one tube, you still need to urinate. Your other kidney will still produce urine that will drain into your bladder. Having a nephrostomy tube in for a long time increases the risk of getting an infection. Nephrostomy tube care focuses on preventing infection. How can you care for yourself at home? ?? Wash your hands before you handle the nephrostomy tube. ?? Clean the area around the tube with soap and water every day. ?? Keep the drainage bag lower than your kidney to keep urine from backing up. ?? You can clean the bag after removing it from the tube. Use another container to collect your urine while you clean the bag. To clean the bag, fill it with 2 parts vinegar to 3 parts water, and letit stand for 20 minutes. Then empty it out, and let it air dry. ?? Empty the drainage bag before it is completely full or every 2 to 3 hours. ?? Do not swim or take baths while you have a nephrostomy tube. You can shower after wrapping the end of the nephrostomy tube with plastic wrap. ?? Change the dressing around the nephrostomy tube about every 3 days or when it gets wet or dirty.A nurse will teach you how to change it. Activity: You may be sore for several days after the tube is inserted. This may limit your activity. You should be careful to avoid activity that causes a pulling sensation, pain or kinking of the tube. When to call your healthcare provider: ??? There may be a little blood in the urine after the tube is placed or changed. Contact your healthcare provider if the bleeding doesn???t stop in a couple of days or if the drainage becomes brightred. ??? If urine or blood leaks around the tube, or poor drainage into the bag ??? If the tube stops draining urine (if attached to a bag system) ??? If skin around the tube is red or irritated or if you see any swelling or drainage around the tube. ??? If you have shaking chills. ??? If you have a fever equal to or greater than 101 degrees Fahrenheit (if these symptoms occur and your tube has been capped you should uncap it and connect to a drainage bag). ??? If you have unusual pain in your flank or at the tube site. ??? A faint urine smell is often present, but if the smell becomes strong call your healthcare provider. ??? Decreased drainage into the bag. ??? Tube Care: ??? You may take a shower but you must cover the dressing with plastic wrap to keep it dry. It may be easier to take a sponge bath. You may NOT take a tub bath or swim. ??? It is important that you take care of your tube. It can be pulled out if it is caught on something. If you think the tube is partly pulled out or if it comes out completely, we can usually put itback in easily if you come to see us within 12-24 hours. ??? It is important to keep the skin around the tube healthy. You should clean the area with soap and water a minimum of three times per week. Replace the gauze dressing after you have cleaned and completely dried the skin. ??? We will schedule regular tube changes for you to avoid the tube becoming blocked. You will receive these follow-up appointments in the mail (usually every 3 months). ??? If urine becomes thick, or if urine output decreases or stops, slowly flush the nephrostomy tube with 5cc normal saline. Do not aspirate (draw back with syringe) When to call the Interventional Radiology Department: Please call with any questions or concerns. If it is during regular office hours, please call [phone]. If it is after regular office hours, or on weekends or holidays, please call [phone] and ask to speak to the [employer] multimedia instructional designer for Interventional Radiology. XXX You have received medication during your procedure to help lesson anxiety and keep you comfortable. These medications affect judgement and reaction time. We recommend that you do not drive, operate equipment, sign any important documents, or smoke unattended for 24 hours following your procedure. Because of the sedation, be careful on stairs, as you may be unsteady on your feet. You may resume your regular diet as tolerated. IV site -- slight redness, or tenderness is normal, you can use a warm compress. If tenderness and redness increases or foul drainage occurs, please contact your M. D. Revised 03/12/16 documented in this encounter Medications at Time of Discharge Medication Sig Dispensed Refills Start Date End Date sulfamethoxazole-trimet hoprim (BACTRIM;SEPTRA) 400-80 mg Tablet Take 1 tablet by mouth daily for 364 days. 90 tablet 3 03/20/2016 04/30/2016 valGANciclovir (VALCYTE) 450 mg Tablet Take 1 [...] mg by mouth 2 times daily. 05/28/2016 levothyroxine (SYNTHROID) 75 mcg Tablet Take 75 mcg by mouth daily. 04/23/2016 acetaminophen (TYLENOL) 325 mg Tablet Take 2 tablets by mouth every 4 hours as needed for Pain. 30 tablet 1 09/20/2015 04/23/2016 DILTiazem (DILTIAZEM CD) 120 mg Capsule, Sust. Release 24 hr Take 1 capsule by mouth daily. 30 capsule 11 09/17/2015 05/28/2016 clopidogrel (PLAVIX) 75 mg Tablet Take 1 tablet by mouth daily. 30 tablet 0 05/12/2015 05/28/2016 documented as of this encounter Progress Notes * Kandace Eduardo RN - 03/25/2016 1:42 PM EDT To procedure room 3via stretcher. Onto table supine. All monitors, O2, safety strap in place. Med'sper protocol. * Hebert Moreira - 03/24/2016 12:25 PM EDT Images from the original note were not included. INTERVENTIONAL RADIOLOGY FOCUSED H&P and PRE-PROCEDURE NOTE: PCP: ALBANIA DENIS DO Referring Physician: Sonu Restrepo Planned Procedure: Antegrade left nephrostogram Procedure Indication: LLQ transplant kidney with ureteral stenosis, has had 3/3 planned plasties; Antegrade study Presenting Diagnosis/ Complaint: Ethel Akins is a 65 y.o. 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 His post-operative course was notable for recurrent UTIs requiring readmission on both 11/12/15 and 12/07/15. Transplant kidney US performed on 12/28/15 for rising Creatinine revealed moderate pelvocaliectasis of the transplant kidney increased from earlier US (12/10/2015). Brief/recent IR history as below: 12/29/15: LLQ transplant nephrostomy tube placement (8-Fr locking loop PCN) 01/01/16: Percutaneous nephrostomy check, ureteral stricture balloon dilatation (#1/3), nephroureterostomy tube placement 02/01/16: Balloon dilation of mid ureteral stricture to 7 mm (#2/3). Nephrostomy tube up sized to 10.2 Fr. 03/04/16: Balloon dilation (7mm) of stenosis of the distal 2-3 cm the ureter (#3/3), severe focally. The patient now returns for follow-up evaluation of the nephroureteral stent and UPJ stricture - plan for antegrade nephrostogram. Past Medical/Surgical History: Patient Active Problem List [...] performed by Que Amaro MD at [facility] OR ??? Pro transplantation of kidney N/A 09/16/2015 @KIDNEY TRANSPLANT, WITHOUT RECIPIENT NEPHRECTOMY performed by Franko Larkin MD at [facility] OR ??? Pro transplant, prep cadaver renal graft N/A 09/16/2015 @PREPARATION CADAVERIC RENAL ALLOGRAFT performed by Franko Larkin MD at [facility] OR ??? N/A 09/16/2015 ORGAN ACQUISITION RENAL, CADAVERIC performed by Franko Larkin MD at [facility] OR Medications: Current Outpatient Prescriptions on File Prior to Encounter Medication Sig Dispense Refill ??? sulfamethoxazole-trimethoprim (BACTRIM;SEPTRA) 400-80 mg Tablet Take [...] 30 tablet 0 No current facility-administered medications on file prior [...] cigars, only sometimes ??? Alcohol use No ??? Drug use: No ??? Sexual activity: Not on file Other Topics Concern ??? Not on file Social History Narrative Significant Family History: No family history on file. Physical Examination: pending Labs: Lab Results Component Value Date WBC 6.9 02/26/2016 ANC 2.99 12/07/2015 HCT 41.2 02/26/2016 PLATELET 189 02/26/2016 INR 1.0 02/01/2016 BUN 17 02/26/2016 CREATININE 1.56 (H) 02/26/2016 ALKPHOS 71 02/26/2016 AST 30 02/26/2016 ALBUMIN 4.3 02/26/2016 BILIDIR 0.2 02/26/2016 BILITOT 1.0 02/26/2016 ALT 30 02/26/2016 PROT 7.6 02/26/2016 Imagin03/04/16 ASA: Pending (to be assessed in angio the day of procedure) Mallampati Class: Pending (to be assessed in angio the day of procedure) Assessment/Plan: 65 y.o. male with PMH notable for DM2, HTN and HCV s/p recent DDKT (09/16/15); transplant kidney US 12/28/15 revealed moderate pelvocaliectasis of the transplant kidney, increased fromearlier. 8Fr PCN placed 12/28 and now s/p 3x ureteral stricture balloon dilatation (12/31, 01/31, 03/04). PCN was upgraded to NU tube on 12/31 and upsized to 10Fr on 01/31. Pt now returns for antegrade neph rostogram and re-evaluation of ureteral stricture. I have reviewed the sedation plan for this patient???s case and concur that Fentanyl and Versed areappropriate choices for sedation and will be provided per the protocoled order set for this case Labs to be performed day of procedure: none additional Medication to STOP: none Sedation: Moderate sedation per IR RN protocols Prophylactic antibiotic: Cipro 500 mg PO Additional medications for procedure: none Planned access site: Left NU tube Position: prone Consent: Pending - Alessandro Obando MD (Pager #[phone]) 03/24/2016 VIR PRE-PROCEDURE VIR NOTE ADDENDUM Name: Ethel Akins Date of : 1950 Physical Examination: Chest: clear to auscultation, no wheezes, Heart: normal rate, regular rhythm, Abdomen: soft, nontender, nondistended, ASA 3 - Patient with moderate systemic disease with functional limitations Mallampati II (soft palate, uvula, fauces visible) The planned procedure, its benefits/risks and alternatives were discussed with the patient and consent was given. Hebert Moreira * Kandace Eduardo RN - 03/20/2016 2:14 PM EDT ANGIO NURSING DATABASE Name: ETHEL AKINS Date of : 1950 AGE 65 y.o. Address: [address] [place] [phone] (home) [phone] (work) Mobile: Telephone Information: Referring Provider: Sonu Restrepo REASON FOR VISIT: Question Answer Comment Laterality Bilateral Is the patient on anticoagulant / anitplatelet therapy ? Clopidogrel Where will study be performed? [facility] Reason for exam and clinical history: LLQ transplant kidney with ureteral stenosis, has had 3/3 planned plasties Exam/Procedure requested: Antegrade study Anticoagulant/antiplatelet/herbal med. stopped on per MD order. [...] ??? Bacteremia due to coagulase-negative Staphylococcus R78.81 Pertinent PSH: Past Surgical History Procedure Laterality Date ??? Pro anastomosis, av, any site Left 05/09/2015 AV FISTULA CREATION, DIRECT HEMODIALYSIS, ANY SITE, EG ASHWINI FISTULA UPPER EXTREMITY performed by Que Amaro MD at [facility] OR ??? Pro transplantation of kidney N/A 09/16/2015 @KIDNEY TRANSPLANT, WITHOUT RECIPIENT NEPHRECTOMY performed by Franko Larkin MD at [facility] OR ??? Pro transplant, prep cadaver renal graft N/A 09/16/2015 @PREPARATION CADAVERIC RENAL ALLOGRAFT performed by Franko Larkin MD at [facility] OR ??? N/A 09/16/2015 ORGAN ACQUISITION RENAL, CADAVERIC performed by Franko Larkin MD at [facility] OR Date/Procedure? Med's given/comments 01/08/2015: Tunneled [...] fentanyl 100 mcg ,versed 2 mg iv ? Laboratory Results: Lab Results Component Value Date INR 1.0 02/01/2016 Lab Results Component Value Date CREATININE 1.56 (H) 02/26/2016 Lab Results Component Value Date K 3.9 02/26/2016 Lab Results Component Value Date PLATELET 189 02/26/2016 Medications: Prior to Admission medications Medication Sig Start Date End Date Taking? Authorizing Provider sulfamethoxazole-trimethoprim (BACTRIM;SEPTRA) 400-80 mg Tablet Take 1 [...] by mouth 2 times daily. PROVIDER, HISTORICAL levothyroxine (SYNTHROID) 75 mcg Tablet Take 75 mcg by mouth daily. PROVIDER, HISTORICAL acetaminophen (TYLENOL) 325 mg Tablet Take 2 tablets by mouth every 4 hours as needed for Pain. Patient not taking: Reported on 02/12/2016 09/20/15 Dyan Sears MD DILTiazem (DILTIAZEM CD) 120 mg Capsule, Sust. Release 24 hr Take 1 capsule by mouth daily. 09/17/15Que chavis MD clopidogrel (PLAVIX) 75 mg Tablet Take 1 tablet by mouth daily. 05/12/15 Kendrick Del Castillo MD documented in this encounter Plan of Treatment Upcoming Encounters Date Type Department Care Team (Late st Contact Info) Description 04/15/2024 10:00 AM EDT Hospital Encounter [place] [address] Arrived documented as of this encounter Procedures Procedure Name Priority Date/Time Associated Diagnosis Comments IR ALL PROCEDURES Routine 03/25/2016 2:14 PM EDT Ureteral stenosis of kidney transplant documented in this encounter Results [...] was prepped and draped in supine position. Textile Dyer image obtained. Contrast injection confirmed catheter location. [...] of transplanted kidney documented in this encounter Administered Medications Inactive Administered Medications - up to 3 most recent administrations Medication Order MAR Action Action Date Dose Rate Site ciprofloxacin (CIPRO) tablet 500 mg 500 mg, Oral, ONCE, 1 dose, On Thu03/25/16 at 1230, Angio/IR (Intra-Procedure), Routine, Indication for (Active or Suspected): Prophylaxis Given 03/25/2016 1:30 PM EDT 500 mg fentaNYL 50 mcg/mL multi-dose injection 25-50 mcg, Intravenous, EVERY 5 MIN PRN, Starting on Thu03/25/16 at 1214, Until Tu03/25/16 at 1404, Pain, per unit protocol, - Start dose [...] and verbal order., Angio/IR (Intra-Procedure), Routine Given 03/25/2016 2:00 PM EDT 50 mcg Given 03/25/2016 1:31 PM EDT 50 mcg iohexol (OMNIPAQUE) 350 mg/mL solution 17,500 mg 17,500 mg (50 mL), Other, ONCE PRN, 1 dose, Starting on 03/25/16 at 1414, Until 03/25/16 at 1415, Per Protocol, Warning Vesicant/Irritant Medication , Routine Given 03/25/2016 2:15 PM EDT 20 mLs midazolam (PF) (VERSED) 1 mg/mL multi-dose injection 0.5-1 mg 0.5-1 mg, Intravenous, EVERY 3 MIN PRN, Starting on 03/25/16 at 1214, Until 03/25/16 at 1404, Sleep, - Start dose; 1 mg (Reduce [...] and verbal order., Angio/IR (Intra-Procedure), Routine Given 03/25/2016 2:00 PM EDT 1 mg Given 03/25/2016 1:30 PM EDT 1 mg documented in this encounter Care Teams Supervisor Air Conditioning Installer Relationship Specialty Start Date End Date Albania Denis DO [address] [place] [address] PCP - General 09/03/12 03/17/22 Ruchi Valles RN Nurse Clinic Transplant Surgery 07/30/15 documented as of this encounter
--- OUTSIDE RECORDS SUMMARY | 2024-02-14 11:31 | XMS_ITS | Encounter Summary ---
[place] [address] Care Team Providers Care Elastic Attacher Zigzag Name Role Phone AdeelUrbano Primary Care Provider Encounter Details Date Type Department Care Team (Late st Contact Info) Description 04/25/2016 Telephone [place] [id number] Margarette Kuhn, RN Social History Tobacco Use [...] Miscellaneous Notes * Telephone Encounter - Margarette Scott, RN - 04/25/2016 9:33 AM EDT Spoke with Mara who reports that Yash didn't feel well and took some tylenol before laying down. She took his temperature approximately 30min after tylenol admin and it was 99.6F. He is now feeling better. I advised her that if he was not feeling well later and wanted to take some tylenol to take his temperature before he took and it an hour after he took it and to call us back with the results. Will await call back. * Telephone Encounter - Margarette Scott, RN - 04/25/2016 9:32 AM EDT ----- Message from Barbara Josue sent at 04/25/2016 9:07 AM EDT ----- Regarding: fever Contact: Yash asked Mara to take his temp. He had already taken acetaminophen. It was 99.9 and then 99.6. When does she get concerned and then bring him to the hospital? documented in this encounter Plan of Treatment Upcoming Encounters Date Type Department Care Team (Late st Contact Info) Description 04/15/2024 10:00 AM EDT Hospital Encounter Non-[place] [address] Arrived documented as of this encounter Visit Diagnoses Not on filedocumented in this encounter Care Teams Elastic Attacher Zigzag Relationship Specialty Start Date End Date Urbano Denis DO [address] [place] [address] PCP - General 09/03/12 03/17/22 Ruchi Valles RN Nurse Clinic Transplant Surgery 07/30/15 documented as of this encounter
--- OUTSIDE RECORDS SUMMARY | 2024-02-14 11:31 | XMS_ITS | Encounter Summary ---
[place] [address] Care Team Providers Care Sewage Plant Supervisor Name Role Phone Urbano Denis DO Primary Care Provider [phone] Reason for Visit * Auth/Cert Specialty Diagnoses / Procedures Referred By Humberto flor Referred To Contact Diagnoses Fever FEVER, S/P KIDNEY TRANSPLANT Referral ID Status Reason Start Date Expiration Date Visits Re quested Visits Authorized [id number] 1 1 Encounter Details Date Type Department Care Team (Latest Contact Info) Description 04/25/2016 3:20 PM EDT Laboratory Appointment Lab [address] [place] [phone] Fever, unspecified fever cause; H/O kidney transplant Social History Tobacco Use [...] AM EDT Hospital Encounter Non-Invasive [place] [phone] Arrived documented as of this encounter Procedures Procedure Name Priority Date/Time Associated Diagnosis Comments URINALYSIS WITH REFLEX CULTURE Routine 04/25/2016 4:07 PM EDT URINE CULTURE Routine 04/25/2016 4:07 PM EDT HEMOGRAM Routine 04/25/2016 4:04 PM EDT Fever, unspecified fever cause DIFFERENTIAL, AUTOMATED Routine 04/25/2016 4:04 PM EDT Fever, unspecified fever cause CBC (WITH DIFF) Routine 04/25/2016 4:04 PM EDT Fever, unspecified fever cause URIC ACID STAT 04/25/2016 4:04 PM EDT H/O kidney transplant PHOSPHORUS Routine 04/25/2016 4:04 PM EDT Fever, unspecified fever cause MAGNESIUM Routine 04/25/2016 4:04 PM EDT Fever, unspecified fever cause CHOLESTEROL, TOTAL STAT 04/25/2016 4: 04 PM EDT H/O kidney transplant COMPREHENSIVE METABOLIC PANEL Routine 04/25/2016 4:04 PM EDT Fever, unspecified fever cause BLOOD CULTURE STAT 04/25/2016 4:03 PM EDT H/O kidney transplant documented in this encounter Results * (ABNORMAL) Urine culture (04/25/2016 4:07 PM EDT) Urine Culture 50,000-99,000 cfu/ml Coagulase negative Staphylococcus species 10,000-49,000 cfu/ml mixed mucosal gareth (A) [facility] Organism Coagulase negative Staphylococcus species(A) [facility] Urine specimen (specimen) 04/25/2016 4:07 PM EDT 04/25/2016 5:17 PM EDT Narrative Resulting Agency Comment Spec [...] MICROSCAN METHOD Resistant Coagulase Negative Staphylococcus species Gentamicin MICROSCAN METHOD Resistant Comment:Gentamicin i s not appropriate for [place]-therapy. Coagulase Negative Staphylococcus species Levofloxacin MICROSCAN METHOD Resistant Coagulase Negative Staphylococcus species Nitrofurantoin MICROSCAN METHOD Sensitive Coagulase Negative Staphylococcus species Oxacillin MICROSCAN METHOD Resistant Coagulase Negative Staphylococcus species Penicillin MICROSCAN METHOD Resistant Coagulase Negative Staphylococcus species Tetracycline MICROSCAN METHOD Sensitive Coagulase Negative Staphylococcus species Trimethoprim/Sulfa MICROSCAN METHOD Resistant Coagulase Negative Staphylococcus species Vancomycin MICROSCAN METHOD Sensitive Tal Eagle MD MICROBIOLOGY - [facility] ORDERABLES [facility] [place] [address] * (ABNORMAL) Urinalysis with reflex Culture (04/25/2016 4:07 PM EDT) Glucose, Urine Dipstick Negative Negative mg/dL [facility] Protein, Urine Dipstick 30(A) Negative mg/dL [facility] Bilirubin, [...] [facility] pH, Urn (dipstick) 6.0 5.0 - 8.0 [facility] Blood, Urine Dipstick Moderate(A) Negative mg/dL [facility] Ketone, Urine Dipstick Negative Negative mg/dL [facility] Nitrite, Urine Dipstick Negative Negative [facility] Leukocytes, Urine Dipstick Small(A) Negative [facility] Appearance, Urine Dipstick Clear Clear [facility] Specific [place] Urine Automated 1.024 1.002 - 1.030 [facility] Color, Urine Dipstick Yellow Yellow [facility] RBC, Urine 44(H) 0 - 3 /HPF [facility] WBC, Urine 16(H) 0 - 3 /HPF [facility] Reflex to Culture Yes [facility] Urine specimen (specimen) Urine / Unknown 04/25/2016 4:07 PM EDT 04/25/2016 4:20 PM EDT Narrative Resulting Agency Comment Spec In Lab Tal Eagle MD URINE ORDERABLES [facility] [place] [address] * (ABNORMAL) Differential, Automated (04/25/2016 4:04 PM EDT) Neutrophil % 83.7 % [facility] Neutrophil Absolute 6.31(H) 1.70 - 6.10 x10(3)/mc L [facility] Lymph % 8.8 % [facility] Lymphocytes Abs 0.7(L) 0.9 - 3.2 x10(3)/mc L [facility] Monocyte % 5.3 % [facility] Monocyte Abs 0.4 0.3 - 0.9 x10(3)/mc L [facility] Eos % 0.8 % [facility] Eosinophils Abs 0.1 0.0 - 0.4 x10(3)/mc L [facility] Basophil % 0.7 % [facility] Baso Absolute 0.0 0.0 - 0.1 x10(3)/mc L [facility] Immature Gran % 0.70 % [facility] Comment: Immature granulocytes(IG's)percentage and absolute count will include metamyelocytes, myelocytes, and promyelocytes. Blood smears from CBCs yielding IG's will be scanned manually for concordance. If this scan disagrees with the automated IG or if promyelocytes are noted, a manual differential will be performed. Immature Gran Absolute 0.05(H) 0.00 - 0.04 x10(3)/[facility] Blood specimen (specimen) 04/25/2016 4:04 PM EDT 04/25/2016 4:10 PM EDT Narrative Resulting Agency Comment Spec In Lab Tal Eagle MD HEMATOLOGY ORDERA BLES [facility] [place] [address] * (ABNORMAL) Hemogram (04/25/2016 4:04 PM EDT) White Blood Cell 7.5 4.0 - 9.5 x10(3)/[facility] Red Blood Cell 5.10 4.58 - 5.54 x10(6)/[facility] Hemoglobin 16.5 13.7 - 16.5 gm/dL [facility] Hematocrit 47.9 40.5 - 48.5 % [facility] Mean Cell Volume 93.9(H) 82.9 - 93.[address] [facility] Mean Cell Hemoglobin 32.4(H) 27.5 - 32.[address] [facility] Mean Cell Hemoglobin Concentration 34.4 32.0 - 35.7 gm/dL [facility] Platelet 218 145 - 357 x10(3)/[facility] RDW Standard Deviation 44.3 36.0 - 45.0 [facility] RDW coefficient of variation 12.9 11.4 - 13.8 % [facility] Mean Platelet Volume 8.9 7.6 - 12.9 [facility] NRBC% auto 0.0 % [facility] NRBC Absolute 0.000 0.000 - 0.000 x10(3)/[facility] Blood specimen (specimen) 04/25/2016 4:04 PM EDT 04/25/2016 4:10 PM EDT Narrative Resulting Agency Comment Spec In Lab Tal Eagle MD HEMATOLOGY ORDERA BLES Performing Organization Address City/[facility]/ZIP Co de Phone Number [facility] [place] [address] * Uric acid (04/25/2016 4:04 PM EDT) Uric Acid 7.4 3.5 - 8.5 mg/dL [facility] Blood specimen (specimen) 04/25/2016 4:04 PM EDT 04/25/2016 4:10 PM EDT Narrative Resulting Agency Comment Spec In Lab Tal Eagle MD CHEMISTRY ORDERAB LES Performing Organization Address [facility] Co de Phone Number [facility] [place] [address] * Cholesterol, total (04/25/2016 4:04 PM EDT) Cholesterol, Total 125 <=199 mg/dL [facility] Comment: Recommendations of the NCEP Adult Treatment Panel for the following risk cutoff thresholds for the [place] population: Desirable: <200 mg/dL Borderline High: 200-239 mg/dL High: > or = 240 mg/dL Blood specimen (specimen) 04/25/2016 4:04 PM EDT 04/25/2016 4:10 PM EDT Narrative Resulting Agency Comment Spec In Lab Tal Eagle MD CHEMISTRY ORDERAB LES Performing Organization Address City/[facility]/ZIP Co de Phone Number [facility] [place] [address] * (ABNORMAL) Phosphorus (04/25/2016 4:04 PM EDT) Phosphorus 2.4(L) 2.5 - 4.5 mg/dL [facility] Blood specimen (specimen) 04/25/2016 4:04 PM EDT 04/25/2016 4:10 PM EDT Narrative Resulting Agency Comment Spec In Lab Tal Eagle MD CHEMISTRY ORDERAB LES Performing Organization Address City/[facility]/ZIP Co de Phone Number [facility] [place] [address] * (ABNORMAL) Magnesium (04/25/2016 4:04 PM EDT) [facility] Magnesium 0.54(L) 0.69 - 1.07 mmol/L [facility] Blood specimen (specimen) 04/25/2016 4:04 PM EDT 04/25/2016 4:10 PM EDT Narrative Resulting Agency Comment Spec In Lab Tal Eagle MD CHEMISTRY ORDERAB LES Performing Organization Address [facility] Co de Phone Number [facility] [place] [address] * (ABNORMAL) Comprehensive metabolic panel (non-fasting) (04/25/2016 4:04 PM EDT) [facility] Glucose 139 65 - 199 mg/dL [facility] Comment:Diabetes: >=200 mg/d L plus symptoms Blood Urea Nitrogen 14 10 - 20 mg/dL [facility] Creatinine 1.53(H) 0.80 - 1.50 mg/dL [facility] Comment: Please note that the pediatric reference intervals supplied above were not validated at [facility]. Results from pediatric patients should be interpreted in conjunction to the patient's age, height and muscle mass. Sodium 138 135 - 145 mmol/L ST. [...] mmol/L [facility] Anion Gap 17(H) 5 - 15 mmol/L [facility] Calcium 9.5 8.5 - 10.5 mg/dL [facility] Protein, Total 7.7 6.1 - 8.0 gm/dL [facility] Albumin 4.3 3.2 - 5.2 gm/dL [facility] Aspartate Aminotransferase 23 0 - 39 unit/L [facility] Alanine Aminotransferase 25 0 - 55 unit/L [facility] Alkaline Phosphatase 63 40 - 120 unit/L [facility] Bilirubin, Total 1.6(H) 0.2 - 1.3 mg/dL [facility] Bilirubin, Direct 0.3 0.0 - 0.3 mg/dL [facility] Est Glomerular Filtration Rate 46(L) >=60 [facility] Comment: This estimated GFR (eGFR) [...] the following links into your internet browser. [email or web address] Blood specimen (specimen) 04/25/2016 4:04 PM EDT 04/25/2016 4:10 PM EDT Narrative Resulting Agency Comment Spec In Lab Tal Eagle MD CHEMISTRY ORDERAB LES [facility] [place] [address] * (ABNORMAL) Blood culture (04/25/2016 4:03 PM EDT) Blood Culture Coagulase negative Staphylococcus species detected by PCR Isolate saved. If future testing is required, contact the Microbiology [facility]. (A) [facility] Gram Stain Anaerobic Growth detected in anaerobic bottle. Gram Positive Cocci in clusters seen Results called to and read back by DR. PACK. (A) [facility] Organism Coagulase negative Staphylococcus species(A) [facility] Organism Gram Positive Cocci in clusters(A) [facility] Blood specimen (specimen) STRUCTURE OF [...] Resistant Comment:Gentamicin i s not appropriate for [place]-therapy. Coagulase Negative Staphylococcus species Levofloxacin MICROSCAN METHOD Resistant Coagulase Negative Staphylococcus species Oxacillin MICROSCAN METHOD Resistant Coagulase Negative Staphylococcus species Penicillin MICROSCAN METHOD Resistant Coagulase Negative Staphylococcus species Tetracycline MICROSCAN METHOD Sensitive Coagulase Negative Staphylococcus species Trimethoprim/Sulfa MICROSCAN METHOD Resistant Coagulase Negative Staphylococcus species Vancomycin MICROSCAN METHOD Sensitive Tal Eagle MD MICROBIOLOGY - BL OOD ORDERABLES [facility] [place] [address] documented in this encounter Visit Diagnoses Diagnosis Fever, unspecified fever cause H/O kidney transplant Kidney replaced by transplant documented in this encounter Care Teams Sewage Plant Supervisor Relationship Specialty Start Date End Date Urbano Denis DO [address] [place] [address] PCP - General 09/03/12 03/17/22 Ruchi Valles RN Nurse Clinic Transplant Surgery 07/30/15 documented as of this encounter
--- OUTSIDE RECORDS SUMMARY | 2024-02-14 11:31 | XMS_ITS | Encounter Summary ---
Author Organization [facility] [place] [address] Care Team Providers Care Kennel Manager Dog Track Name Role Phone Urbano Denis DO Primary Care Provider Reason for Visit * Reason Onset Date Comments Medication Refill 03/20/2016 Encounter Details Date Type Department Care Team (Late st Contact Info) Description 03/20/2016 Refill [place] [phone] Samia Escalante, RN Social History Tobacco Use [...] AM EDT Hospital Encounter Non-[place] [phone] Arrived documented as of this encounter Visit Diagnoses Not on filedocumented in this encounter Care Teams Kennel Manager Dog Track Relationship Specialty Start Date End Date Urbano Denis DO [address] [place], [place] [address] PCP - General 09/03/12 03/17/22 Ruchi Valles RN Nurse Clinic Transplant Surgery 07/30/15 documented as of this encounter
--- OUTSIDE RECORDS SUMMARY | 2024-02-14 11:31 | XMS_ITS | Encounter Summary ---
Author Organization [facility] [place] [address] Care Team Providers Care Body And Fender Mechanic Apprentice Name Role Phone AdeelUrbano toscano Primary Care Provider Encounter Details Date Type Department Care Team (Late st Contact Info) Description 02/26/2016 Notes Only Infectious Disease at [facility] [place] [address] Es Arreaga, RN Social History Tobacco Use [...] Progress Notes * Es Arreaga RN - 02/26/2016 2:22 PM EDT OPAT Program Infectious Disease Clinic Visit Catheter Removal Date: 02/26/16 [ x ] Catheter removed intact with 42 cm removed Reason for removal: [x ] End of Therapy [ ] Phlebitis [ ] Cellulitis [ ] Catheter-related infection: [ ] Suspected [ ] Documented [ ] Thrombus: [ ] Suspected [ ] Documented [ ] Infiltration [ ] Other Patient Education: [ x] Patient instructed to observe site for redness, swelling, discomfort and/or exudate and call Healthcare Provider if any of these signs/symptoms present. Catheter removed by: Es Gibson, RN documented in this encounter Plan of Treatment Upcoming Encounters Date Type Department Care Team (Late st Contact Info) Description 04/15/2024 10:00 AM EDT Hospital Encounter [place] [address] Arrived documented as of this encounter Visit Diagnoses Not on filedocumented in this encounter Care Teams Body And Fender Mechanic Apprentice Relationship Specialty Start Date End Date Urbano Denis DO [address] [place] [address] PCP - General 09/03/12 03/17/22 Ruchi Valles RN Nurse Clinic Transplant Surgery 07/30/15 documented as of this encounter
--- OUTSIDE RECORDS SUMMARY | 2024-02-14 11:31 | XMS_ITS | Encounter Summary ---
Author Organization [facility] Address [facility] [place] [address] Care Team Providers Care Physician Assistant Psychiatry Name Role Phone Urbano Denis DO Primary Care Provider [phone] Reason for Visit * Reason Comments Follow-up Encounter Details Date Type Department Care Team (Late st Contact Info) Description 02/12/2016 7:30 AM EDT [place] [address] Santosh Arredondo MD [facility] [place] [address] Ureteral stricture of left kidney transplant Social [...] Sign Reading Time Taken Comments Blood Pressure 151/94 02/12/2016 7:54 AM EDT Pulse 71 02/12/2016 7:54 AM EDT Temperature 36.4 ??C (97.6 ??F) 02/12/2016 7:54 AM ED T Respiratory Rate - - Oxygen Saturation 97% 02/12/2016 7:54 AM EDT Inhaled Oxygen Concentration - - Weight 95.3 kg (210 lb) 02/12/2016 7:54 AM EDT Height 177.8 cm (5' 10) 02/12/2016 7:54 AM EDT Body Mass Index 30.13 02/12/2016 7:54 AM EDT documented in this encounter Progress Notes * Santosh Arredondo MD - 02/12/2016 7:30 AM EDT Images from the original note were not included. Patient Name: Cody Bolden Date of Service: 02/17/2016 Primary Care Provider: URBANO DENIS DO Reason for Visit: Cody Bolden is a 65 y.o. male comes for follow up of a transplant ureteral stricture 09/17/2015 Donor renal transplant for nodular glomerulosclerosis 10/26/2015 Stent removed Cr 1.49 11/08/2015 Cr 1.89 11/12/2015 Enterococcal bacteremia. U/S mild hydronephrosis 11/23/2015 Cr 2.27 53/2015 Cr 3.1 [place] placed 12/07/2015 Readmitted fever 12/28/2015 Readmitted fever Cr 7 12/29/2015 PCN placed . Stricture dilation + Nephroureteral tube placed 01/29/2016 Admitted staph bacteremia on 02/01/2016 Repeat ureteroplasty Currently the patient feels well, capped nephro-uretero tube on 02/10, urinating without difficulty, no dysuria or hematuria, no fever/chills, no abdominal pain or pain over kidney He is planned for a 3-4 week course of vancomycin Patient Active Problem List Diagnosis ??? Bacteremia [...] ??? DJD (degenerative joint disease) ??? Hematuria Medications: Reviewed Allergies: Reviewed Physical Exam: Vital Signs are reviewed. The patient appears healthy and in no distress. The abdomen is benign. There are no masses or organomegaly. His transplant is not tender. Tube site OK Lab values are reviewed 02/11 Cr 1.57 [id number] X-rays are reviewed 01/01/2016 Impression: #1: Ureteral stricture sp donor transplantation. I suspect the stricture is ischemic in nature. #2: Recent staph and enterococcal sepsis. Plan: I will discuss with Dr Nelson how many dilatations he plans. Once he has completed dilatation we will reposition NU tube to N tube perform a nephrostogram +/- trial of clampomg Unfortunately I suspect he will need a ureteral reconstruction, likely with a Boari flap. 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
--- OUTSIDE RECORDS SUMMARY | 2024-02-14 11:31 | XMS_ITS | Encounter Summary ---
[place] [address] Care Team Providers Care Desk Sergeant Name Role Phone Urbano Denis DO Primary Care Provider Reason for Visit * Auth/Cert Specialty Diagnoses / Procedures Referred By Humberto t Referred To Contact Diagnoses Fever FEVER, S/P KIDNEY TRANSPLANT Referral ID Status Reason Start Date Expiration Date Visits Re quested Visits Authorized [id number] 1 1 Encounter Details Date Type Department Care Team (Latest Contact Info) Description 04/23/2016 10:00 AM EDT Laboratory Appointment Lab [address] [place] [phone] Kidney replaced by transplant Social History Tobacco [...] AM EDT Hospital Encounter Non-Invasive [place] [phone] Arrived documented as of this encounter Procedures Procedure Name Priority Date/Time Associated Diagnosis Comments PROTEIN/CREATININE RATIO, URINE STAT 04/23/2016 10:37 AM EDT Kidney replaced by transplant URINALYSIS WITH REFLEX CULTURE STAT 04/23/2016 10:37 AM EDT Kidney replaced by transplant URINE CULTURE STAT 04/23/2016 10:37 AM EDT BK QUANT BLOOD RESULT STAT 04/23/2016 10:29 AM EDT Kidney replaced by transplant BKV QUANT BLOOD STAT 04/23/2016 10:29 AM EDT Kidney replaced by transplant HEMOGRAM STAT 04/23/2016 10:29 AM EDT Kidney replaced by transplant DIFFERENTIAL, AUTOMATED STAT 04/23/2016 10:29 AM EDT Kidney replaced by transplant TACROLIMUS LEVEL STAT 04/23/2016 10:2 9 AM EDT Kidney replaced by transplant RETICULOCYTE COUNT STAT 04/23/2016 10 :29 AM EDT Kidney replaced by transplant CBC (WITH DIFF) STAT 04/23/2016 10:29 AM EDT Kidney replaced by transplant URIC ACID STAT 04/23/2016 10:29 AM EDT Kidney replaced by transplant PHOSPHORUS STAT 04/23/2016 10:29 AM EDT Kidney replaced by transplant MAGNESIUM STAT 04/23/2016 10:29 AM EDT Kidney replaced by transplant CHOLESTEROL, TOTAL STAT 04/23/2016 10 :29 AM EDT Kidney replaced by transplant BASIC METABOLIC PANEL STAT 04/23/2016 10:29 AM EDT Kidney replaced by transplant documented in this encounter Results * (ABNORMAL) Urine culture (04/23/2016 10:37 AM EDT) Urine Culture 1,000-9,000 cfu/ml Gram Positive organisms , probable contaminant(A ) [facility] Urine specimen (specimen) 04/23/2016 10:37 AM EDT 04/23/2016 11:19 AM EDT Narrative Resulting Agency Comment Spec In Lab Que Amaro MD MICROBIOLOGY - GENERAL ORDERABLES Performing Organization Address [facility] Co de Phone Number [facility] [place] [address] * (ABNORMAL) Protein/Creatinine Ratio, urine (04/23/2016 10:37 AM EDT) Creatinine, Urine 166 mg/dL [facility] Protein, Urine 38(H) 0 - 12 mg/dL [facility] Protein / Creatinine Ratio, Urine 0.2 ratio [facility] Urine specimen (specimen) 04/23/2016 10:37 AM EDT 04/23/2016 10:44 AM EDT Narrative Resulting Agency Comment Spec In Lab Que Amaro MD URINE ORDERABL ES Performing Organization Address [facility] Co de Phone Number [facility] [place] [address] * (ABNORMAL) Urinalysis with reflex Culture (04/23/2016 10:37 AM EDT) Glucose, Urine Dipstick Negative Negative mg/dL [facility] Protein, Urine Dipstick 30(A) Negative mg/dL [facility] Bilirubin, Urine Dipstick Negative Negative mg/dL [facility] Comment: Clinical correlation required for positive Urine Bilirubin results as false positive may occur with some drugs and drug related products. If a false positive is suspected a serum total bilirubin should be considered if clinically indicated. Urobilinogen, Urine Dipstick 2.0(A) Normal mg/dL [facility] pH, Urn (dipstick) 6.0 5.0 - 8.0 [facility] Blood, Urine Dipstick Small(A) Negative mg/dL [facility] Ketone, Urine Dipstick Negative Negative mg/dL [facility] Nitrite, Urine Dipstick Negative Negative [facility] Leukocytes, Urine Dipstick Negative Negative [facility] Appearance, Urine Dipstick Clear Clear [facility] Specific [place] Urine Automated 1.028 1.002 - 1.030 [facility] Color, Urine Dipstick Yellow Yellow [facility] RBC, Urine 24(H) 0 - 3 /HPF [facility] WBC, Urine 7(H) 0 - 3 /HPF [facility] Squamous Epithelial Cells, Urine <1 <=4 /HPF [facility] Reflex to Culture Yes [facility] Urine specimen (specimen) 04/23/2016 10:37 AM EDT 04/23/2016 10:44 AM EDT Narrative Resulting Agency Comment Spec In Lab Que Amaro MD URINE ORDERABL ES Performing Organization Address City/State/[facility] Co de Phone Number [facility] [place] [address] * BK Quant Blood Result (04/23/2016 10:29 AM EDT) BKV Blood Result Not Detected [...] DNA isolated from plasma was performed using [employer] BKV (ASR) reagents and the [employer] 7500 FAST Real-Time PCR System. In addition, the ??PCR product sequence is confirmed using physical properties (melting curve analysis). This test was developed and its performance determined by the [facility]. It [...] [VERIFIED DATE]05.01.16 Verified By:Jimmy Gleason (Electronic Signature) Blood specimen (specimen) 04/23/2016 10:29 AM EDT 04/23/2016 11:32 AM EDT Narrative Resulting Agency Comment Spec In Lab Que Amaro MD HEMATOLOGY ORD ERABLES [facility] [place] [address] * (ABNORMAL) Differential, Automated (04/23/2016 10:29 AM EDT) Neutrophil % 70.9 % [facility] Neutrophil Absolute 4.21 1.70 - 6.10 x10(3)/mc L [facility] Lymph % 21.5 % [facility] Lymphocytes Abs 1.3 0.9 - 3.2 x10(3)/mc L [facility] Monocyte % 3.9 % [facility] Monocyte Abs 0.2(L) 0.3 - 0.9 x10(3)/mc L [facility] Eos % 2.2 % [facility] Eosinophils Abs 0.1 0.0 - 0.4 x10(3)/mc L [facility] Basophil % 1.2 % [facility] Baso Absolute 0.1 0.0 - 0.1 x10(3)/mc L [facility] Immature Gran % 0.30 % [facility] Comment: Immature granulocytes(IG's)percentage and absolute count will include metamyelocytes, myelocytes, and promyelocytes. Blood smears from CBCs yielding IG's will be scanned manually for concordance. If this scan disagrees with the automated IG or if promyelocytes are noted, a manual differential will be performed. Immature Gran Absolute 0.02 0.00 - 0.04 x10(3)/[facility] Blood specimen (specimen) 04/23/2016 10:29 AM EDT 04/23/2016 10:36 AM EDT Narrative Resulting Agency Comment Spec In Lab Que Amaro MD HEMATOLOGY ORD ERABLES [facility] [place] [address] * (ABNORMAL) Hemogram (04/23/2016 10:29 AM EDT) White Blood Cell 5.9 4.0 - 9.5 x10(3)/[facility] Red Blood Cell 4.93 4.58 - 5.54 x10(6)/[facility] Hemoglobin 16.2 13.7 - 16.5 gm/dL [facility] Hematocrit 46.0 40.5 - 48.5 % [facility] Mean Cell Volume 93.3(H) 82.9 - 93.1 [facility] Mean Cell Hemoglobin 32.9(H) 27.5 - 32.1 pg [facility] Mean Cell Hemoglobin Concentration 35.2 32.0 - 35.7 gm/dL [facility] Platelet 231 145 - 357 x10(3)/[facility] RDW Standard Deviation 44.1 36.0 - 45.0 [facility] RDW coefficient of variation 13.0 11.4 - 13.8 % [facility] Mean Platelet Volume 9.1 7.6 - 12.9 [facility] NRBC% auto 0.0 % [facility] NRBC Absolute 0.000 0.000 - 0.000 x10(3)/[facility] Blood specimen (specimen) 04/23/2016 10:29 AM EDT 04/23/2016 10:36 AM EDT Narrative Resulting Agency Comment Spec In Lab Que Amaro MD HEMATOLOGY ORD ERABLES [facility] [place] [address] * (ABNORMAL) Basic Metabolic Panel (non-fasting) (04/23/2016 10:29 AM EDT) Glucose 215(H) 65 - 199 mg/dL [facility] Comment:Diabetes: >=200 mg/d L plus symptoms Blood Urea Nitrogen 21(H) 10 - 20 mg/dL [facility] Creatinine 1.44 0.80 - 1.50 mg/dL [facility] Comment: Please note that the pediatric reference intervals supplied above were not validated at [facility] Results from pediatric patients should be interpreted in conjunction to the patient's age, height and muscle mass. Sodium 138 135 - 145 mmol/L [facility] Potassium 3.9 3.5 - 5.0 mmol/L [facility] [...] 15 mmol/L [facility] Calcium 9.6 8.5 - 10.5 mg/dL [facility] Est Glomerular Filtration Rate 49(L) >=60 [facility] Comment: [...] the following links into your internet browser. [email or web address] Blood specimen (specimen) 04/23/2016 10:29 AM EDT 04/23/2016 10:36 AM EDT Narrative Resulting Agency Comment Spec In Lab Que Amaro MD CHEMISTRY ROCHELLE JENNINGS Performing Organization Address City/[facility]/ZIP Co de Phone Number [facility] [place] [address] * (ABNORMAL) Magnesium (04/23/2016 10:29 AM EDT) Magnesium 0.64(L) 0.69 - 1.07 mmol/L [facility] Blood specimen (specimen) 04/23/2016 10:29 AM EDT 04/23/2016 10:36 AM EDT Narrative Resulting Agency Comment Spec In Lab Que Amaro MD CHEMISTRY ROCHELLE JENNINGS Performing Organization Address City/[facility]/ZIP Co de Phone Number [facility] [place] [address] * Phosphorus (04/23/2016 10:29 AM EDT) Phosphorus 2.7 2.5 - 4.5 mg/dL [facility] Blood specimen (specimen) 04/23/2016 10:29 AM EDT 04/23/2016 10:36 AM EDT Narrative Resulting Agency Comment Spec In Lab Que Amaro MD CHEMISTRY ROCHELLE JENNINGS Performing Organization Address City/[facility]/ZIP Co de Phone Number [facility] [place] [address] * Uric acid (04/23/2016 10:29 AM EDT) Uric Acid 8.1 3.5 - 8.5 mg/dL [facility] Blood specimen (specimen) 04/23/2016 10:29 AM EDT 04/23/2016 10:36 AM EDT Narrative Resulting Agency Comment Spec In Lab Que Amaro MD CHEMISTRY ROCHELLE JENNINGS Performing Organization Address [facility] Co de Phone Number [facility] [place] [address] * Tacrolimus level (04/23/2016 10:29 AM EDT) Tacrolimus 6.3 ng/mL [facility] Comment: Trough therapeutic: ??5-15 ng/mL Performed by ultra-performance liquid chromatography tandem mass spectrometry (UPLCMS/MS). Blood specimen (specimen) 04/23/2016 10:29 AM EDT 04/23/2016 11:47 AM EDT Narrative Resulting Agency Comment Spec In Lab Que Amaro MD CHEMISTRY ROCHELLE JENNINGS Performing Organization Address [facility] de Phone Number [facility] [place] [address] * Reticulocyte Count (04/23/2016 10:29 AM EDT) Pathologist [facility] Reticulocyte % 1.8 0.7 - 2.6 % [facility] Retic Abs # 0.090 0.030 - 0.120 x10(6)/[facility] Immature Retic% 5.6 0.0 - 15.6 % [facility] Reticulated Hgb 38.9 31.3 - 40.2 pg [facility] Blood specimen (specimen) 04/23/2016 10:29 AM EDT 04/23/2016 10:36 AM EDT Narrative Resulting Agency Comment Spec In Lab Que Amaro MD HEMATOLOGY ORD ERABLES Performing Organization Address [facility] Co de Phone Number [facility] [place] [address] * Cholesterol, total (04/23/2016 10:29 AM EDT) Cholesterol, Total 128 <=199 mg/dL [facility] Comment: Recommendations of the NCEP Adult Treatment Panel for the following risk cutoff thresholds for the [place] population: Desirable: <200 mg/dL Borderline High: 200-239 mg/dL High: > or = 240 mg/dL Blood specimen (specimen) 04/23/2016 10:29 AM EDT 04/23/2016 10:36 AM EDT Narrative Resulting Agency Comment Spec In Lab Que Amaro MD CHEMISTRY ROCHELLE JENNINGS [facility] [place] [address] documented in this encounter Visit Diagnoses Diagnosis Kidney replaced by transplant documented in this encounter Care Teams Desk Sergeant Relationship Specialty Start Date End Date Urbano Denis DO [address] [place] [address] PCP - General 09/03/12 03/17/22 Ruchi Valles RN Nurse Clinic Transplant Surgery 07/30/15 documented as of this encounter
--- OUTSIDE RECORDS SUMMARY | 2024-02-14 11:31 | XMS_ITS | Encounter Summary ---
Author Organization [facility] [place] [address] Care Team Providers Care Bricklayer Name Role Phone Urbano Denis DO Primary Care Provider [phone] Encounter Details Date Type Department Care Team (Late st Contact Info) Description 03/25/2016 10:30 AM EDT Office Visit [place] [address] Jennifer Amaro MD [facility] [place] [address] Kidney replaced by transplant; Chronic hepatitis C without hepatic coma; Immunosuppression; Elevated blood pressure; Hypomagnesemia; Hypophosphatemia; BK polyoma viruria; Ureteral stricture of kidney transplant Social History Tobacco Use [...] Sign Reading Time Taken Comments Blood Pressure 110/52 03/25/2016 11:25 AM EDT Pulse 69 03/25/2016 11:16 AM EDT Temperature 36.4 ??C (97.5 ??F) 03/25/2016 11:16 AM E DT Respiratory Rate 12 03/25/2016 11:16 AM EDT Oxygen Saturation 97% 03/25/2016 11:16 AM EDT Inhaled Oxygen Concentration - - Weight 97.6 kg (215 lb 3.2 oz) 03/25/2016 11:16 AM EDT Height - - Body Mass Index 30.88 02/26/2016 12:10 PM EDT documented in this encounter Progress Notes * Jennifer Amaro MD - 03/25/2016 10:30 AM EDT Follow-Up: Transplant Clinic Date: 03/25/2016 Patient: Cody Bolden Date of Transplant: 09/16/2015 (Kidney) Transplant Surgeon: History of Present Illness: Mr. Bolden is a 65-yo male who is s/p donor kidney transplantation in September of this yearby Dr. Larkin. He developed a ureteral stricture and has undergone a series of ureteral dilation attempts with NU stenting across the stricture. He is scheduled for a repeat nephrostogram today to assess the success of these interventions and move forward with surgery plans if it appears that thisissue has not resolved. Current Meds: Current Outpatient Prescriptions Medication Sig Dispense Refill ??? sulfamethoxazole-trimethoprim (BACTRIM;SEPTRA) [...] mouth every 4 hours as needed for Pain.30 tablet 1 ??? DILTiazem (DILTIAZEM CD) 120 [...] EXTREMITY performed by Jennifer Amaro MD at [facility] MAIN OR ??? Pro transplantation of kidney N/A 09/16/2015 @KIDNEY TRANSPLANT, WITHOUT RECIPIENT NEPHRECTOMY performed by Franko Larkin MD at [facility] MAIN OR ??? Pro transplant, prep cadaver renal graft N/A 09/16/2015 @PREPARATION CADAVERIC RENAL ALLOGRAFT performed by Franko Larkin MD at [facility] MAIN OR ??? N/A 09/16/2015 ORGAN ACQUISITION RENAL, CADAVERIC performed by Franko Larkin MD at [facility] MAIN OR Family History: No family history on file. Social History: Social History Substance Use Topics ??? Smoking status: Current Some Day Smoker Types: Cigars Last attempt to quit: 01/02/2015 ??? Smokeless tobacco: Never Used Comment: cigars, one weekly ??? Alcohol use No ROS: Review of Systems Constitutional: Negative for chills and fever. All other systems reviewed and are negative. Vital Signs: BP 110/52 Pulse 69 Temp 36.4 ??C (97.5 ??F) (Oral) Resp 12 Wt 97.6 kg (215 lb 3.2 oz) SpO2 97% BMI 30.88 kg/m2 Physical Exam: Objective: Vital signs (most recent): Blood pressure 110/52, pulse 69, temperature 36.4 ??C (97.5 ??F), temperature source Oral, resp. rate 12, weight 97.6 kg (215 lb 3.2 oz), SpO2 97 %. General appearance: Comfortable, well-appearing, in no acute distress and not in pain. Lungs: Normal respiratory rate and normal effort. Abdomen: Abdomen is soft. No distension. Tenderness: There is no abdominal tenderness tenderness. Wound: Clean. There is no hernia. Drain: Yes, NU tube internalized Labs: Lab Results Component Value Date CREATININE 1.65 (H) 03/25/2016 K 4.7 03/25/2016 GLUCOSE 152 03/25/2016 HCT 47.0 03/25/2016 HGB 16.0 03/25/2016 WBC 6.7 03/25/2016 PHOS 2.7 03/25/2016 Assessment: --Graft function: creatinine level is stable at 1.6 today. His baseline is in the 1.3 - 1.6 range. Will check Prograf trough level to confirm that he is not running above his therapeutic range. No cloudy urine, no fevers or rigors suggestive of an infectious process with his urologic hardware. His urine has 13 WBC. Will f/u urine culture. He has a nephrostogram today. Await findings to determine next step. Will arrange for surgery if his stenosis issue has not resolved on today's study. -- Immunosuppression reviewed and adjusted: Prograf: tacrolimus level is pending on 07/06, trough level goal is 6 - 8 Prednisone: none Cellcept: 250 mg po bid -- BKV: urine BK persistently positive with negative blood BK PCR tests. New BK PCR from blood sentand pending. Await results. No change in therapy at this stage. -- Hepatitis C: he is scheduled to see Dr. Marcelo again in a few weeks. They have held on hep C treatment until his urologic issues are resolved. Has run relatively low hepatitis C copy counts on recent testing following the surgery and in the setting of his immunosuppression management. -- Hypertension management: no adjustments were required today -- Electrolytes: Calcium and phosphorus balance reviewed. Magnesium balance reviewed. No adjustments were required today -- RTC: TBD by findings on the nephrostogram today Pharmacy needs addressed. No concerns today. MD: JENNIFER AMARO MD * Herlinda Bell, RD - 03/25/2016 10:30 AM EDT [facility] Post Transplant Nutrition Follow Up Date: 03/25/2016 Patient: Cody Bolden Transplant Date: 09/16/15 [place] organ UNOS diagnosis: Transplant: Mr. Cody Bolden is a White Not nor 65 y.o. male who is Status Post Kidney transplantation on 09/16/15. Patient was seen by Nutrition services on 03/25/2016 for his 6 month follow up. Wt Readings from Last 3 Encounters: 03/25/16 97.6 kg (215 lb 3.2 oz) 02/26/16 98 kg (216 lb) 02/26/16 98.3 kg (216 lb 12.8 oz) Today's vital signs: BP 110/52 Pulse 69 Temp 36.4 ??C (97.5 ??F) (Oral) Resp 12 Wt 97.6 kg (215 lb 3.2 oz) SpO2 97% BMI 30.88 kg/m2 Estimated body mass index is 30.88 kg/(m^2) as calculated from the following: Height as of 02/26/16: 177.8 cm (5' 10). Weight as of this encounter: 97.6 kg (215 lb 3.2 oz). Weight pre-Txp: 100.7 Kg (222 lbs) Lab Results Component Value Date HGB 16.0 03/25/2016 HCT 47.0 03/25/2016 NA 139 03/25/2016 K 4.7 03/25/2016 BUN 18 03/25/2016 CREATININE 1.65 (H) 03/25/2016 GLUCOSE 152 03/25/2016 CALCIUM 10.0 03/25/2016 MAGNESIUM 0.66 (L) 03/25/2016 PHOS 2.7 03/25/2016 ALBUMIN 4.4 03/25/2016 Cholesterol (in eD-H the component name CHLPL=Cholesterol) Lab Results Component Value Date CHLPL 145 03/25/2016 Assessment: This screenplay writer reviewed patient's labs with him and his . Serum magnesium and phosphorus improving. Reviewed magnesium-rich foods. Plan: Follow up next clinic visit and prn. documented in this encounter Plan of Treatment Upcoming Encounters Date Type Department Care Team (Late st Contact Info) Description 04/15/2024 10:00 AM EDT Hospital Encounter Non-Invasive [place] [address] Arrived Scheduled Orders Name Type Priority Associated Diagnoses Orde r Schedule Cholesterol, total Lab STAT Kidney replaced by transplant Expected: 03/21/2016 (Approximate), Expires: 09/17/2016 CBC (with Diff) Lab STAT Kidney replaced by transplant Expected: 03/21/2016 (Approximate), Expires: 09/17/2016 Uric acid Lab STAT Kidney replaced by transplant Expected: 03/21/2016 (Approximate), Expires: 09/17/2016 Phosphorus Lab STAT Kidney replaced by transplant Expected: 03/21/2016 (Approximate), Expires: 09/17/2016 Magnesium Lab STAT Kidney replaced by transplant Expected: 03/21/2016 (Approximate), Expires: 09/17/2016 Comprehensive metabolic panel (non-fasting) Lab STAT Kidney replaced by transplant Expected: 03/21/2016 (Approximate), Expires: 09/17/2016 Protein/Creatinine Ratio, urine Lab STAT Kidney replaced by transplant Expected: 03/21/2016 (Approximate), Expires: 09/17/2016 documented as of this encounter Results * Tacrolimus level (03/25/2016 9:59 AM EDT) Tacrolimus 6.5 ng/mL [facility] Comment: Trough therapeutic: ??5-15 ng/mL Performed by ultra-performance liquid chromatography tandem mass spectrometry (UPLCMS/MS). Blood specimen (specimen) 03/25/2016 9:59 AM EDT 03/25/2016 11:14 AM EDT Narrative Resulting Agency Comment Spec In Lab Jennifer Amaro MD CHEMISTRY ROCHELLE JENNINGS [facility] [place] [address] * (ABNORMAL) Urinalysis with reflex Culture (03/25/2016 9:57 AM EDT) Glucose, Urine Dipstick Negative Negative mg/dL [facility] [...] [facility] Leukocytes, Urine Dipstick Small(A) Negative [facility] Appearance, Urine Dipstick Clear Clear [facility] Specific [place] Urine Automated 1.024 1.002 - 1.030 [facility] Color, Urine Dipstick Yellow Yellow [facility] RBC, Urine 2 0 - 3 /HPF [facility] WBC, Urine 13(H) 0 - 3 /HPF [facility] Bacteria, Urine Rare(A) None /HPF [facility] Squamous Epithelial Cells, Urine <1 <=4 /HPF [facility] Renal Epithelial Cells, Urine <1(H) <=0 /HPF [facility] Reflex to Culture Yes [facility] Urine specimen (specimen) 03/25/2016 9:57 AM EDT 03/25/2016 10:06 AM EDT Narrative Resulting Agency Comment Spec In Lab Jennifer Amaro MD URINE ORDERABL ES Performing Organization Address City/State/[place] Co de Phone Number [facility] [place] [phone] documented in this encounter Visit Diagnoses Diagnosis Kidney replaced by transplant Chronic hepatitis C without hepatic coma Immunosuppression Unspecified disorder of immune mechanism Elevated blood pressure Elevated blood pressure reading without diagnosis of hypertension Hypomagnesemia Disorders of magnesium metabolism Hypophosphatemia Disorders of phosphorus metabolism BK polyoma viruria Other nonspecific finding on examination of urine Ureteral stricture of kidney transplant Complications of transplanted kidney documented in this encounter Care Teams Bricklayer Relationship Specialty Start Date End Date Urbano Denis DO [address] [place] [address] [address] [facility] [address] [place] [address] PCP - General 09/03/12 03/17/22 Ruchi Valles RN Nurse Clinic Transplant Surgery 07/30/15 documented as of this encounter
--- OUTSIDE RECORDS SUMMARY | 2024-02-14 11:31 | XMS_ITS | Encounter Summary ---
[place] [address] Care Team Providers Care Syrup Filterer Name Role Phone Urbano Denis DO Primary Care Provider [phone] Reason for Referral * Diagnostic Test (Routine) - Closed Specialty Diagnoses / Procedures Referred By Contac t Referred To Contact Radiology Diagnoses Kidney replaced by transplant Procedures IR all procedures Que Amaro MD [facility] [place] [address] [place] [address] Referral ID Status Reason Start Date Expiration Date V isits Requested Visits Authorized [id number] Closed Specialty Service Requested 02/26/2016 02/25/2017 1 1 Reason for Visit * Diagnostic Test (Routine) - Closed Specialty Diagnoses / Procedures Referred By Contac t Referred To Contact Radiology Diagnoses Kidney replaced by transplant Procedures IR all procedures Que Amaro MD [facility] [place] [address] [place] [address] Referral ID Status Reason Start Date Expiration Date V isits Requested Visits Authorized [id number] Closed Specialty Service Requested 02/26/2016 02/25/2017 1 1 Encounter Details Date Type Department Care Team (Late st Contact Info) Description 03/04/2016 11:50 AM EDT - 03/04/2016 11:59 PM EDT Hospital Encounter Radiology at [facility] [place] [address] Que Amaro MD [facility] [place] [address] Kidney replaced by transplant Discharge Disposition: Home Social History Tobacco [...] Sign Reading Time Taken Comments Blood Pressure 133/72 03/04/2016 2:30 PM EDT Pulse 60 03/04/2016 1:50 PM EDT Temperature 36.3 ??C (97.4 ??F) 03/04/2016 12:09 PM E DT Respiratory Rate 14 03/04/2016 2:30 PM EDT Oxygen Saturation 95% 03/04/2016 2:30 PM EDT Inhaled Oxygen Concentration - - Weight - - Height - - Body Mass Index - - documented in this encounter Discharge Instructions * Discharge Instructions* Kitty Issa RN - 03/04/2016 2:13 PM EDT [facility] Vascular and Interventional Radiology Discharge Instructions for Nephrostomy (Kidney) Tube Care You have had a nephrostomy (kidney) tube placed because you have a blockage of urine flow between your kidney and bladder. Activity: You may be sore for several [...] in the mail (usually every 3 months). When to call the Interventional Radiology Department: Please call with any questions or concerns. If it is during regular office hours, please call [phone]. If it is after regular office hours, or on weekends or holidays, please call [phone] and ask to speak to the Butadiene Convertor Operator manager inspection for Interventional Radiology. XXX You have received [...] drainage occurs, please contact your M. D. 07/18/11 Revised 07/20/15 documented in this encounter Medications at Time of Discharge Medication Sig Dispensed Refills Start Date End Date valGANciclovir (VALCYTE) 450 mg Tablet Take 1 tablet by mouth 2 times daily. 30 tablet 3 02/05/2016 05/28/2016 omeprazole (PRILOSEC) 20 mg Capsule, Delayed Release(E.C.) Take 20 mg by mouth daily as needed. 08/12/2016 mycophenolate (CELLCEPT) 250 mg Capsule Take 1 capsule by mouth 2 times daily. 01/03/2016 12/10/2016 sulfamethoxazole-trimet hoprim (BACTRIM;SEPTRA) 400-80 mg Tablet Take 1 tablet by mouth every other day for 364 days. 15 tablet 11 01/03/2016 03/20/2016 potassium phosphate, monobasic, (K-PHOS) 500 mg Tablet, [...] by mouth daily. 30 capsule 11/15/2015 06/18/2016 tacrolimus (PROGRAF) 1 mg Capsule [...] as of this encounter Progress Notes * Ny Gutierrez APRN - 03/04/2016 12:35 PM EDT ASA: 3: Patient with severe systemic disease Mallampati: III: only the base of the uvula can be seen Cardiovascular: Rhythm: Regular Rate: Normal Pulmonary: Breath sounds clear to auscultation Consent: The sedation plan, its benefits and risks, and alternatives were discussed with the patient. The planned procedure, its benefits and risks, and alternatives were discussed with the patient. The patient consented to the procedure. H&P reviewed: Yes Allergies Reviewed: Yes Current Medications Reviewed: Yes Sedation Plan: moderate (conscious sedation) * Hebert Moreira - 03/03/2016 11:55 AM EDT Images from the original note were not included. IR PRE-PROCEDURE NOTE Name: Ethel Akins Date of : 1950 Referring Physician: Sondra Indication: Ureteral sticture Planned Procedure: LLQ transplant ureteroplasty Chief Complaint/HPI: 65 y.o. male with PMH including DMII, HTN and HCV s/p recent DDKT (09/16/15). His post-operative course was notable for recurrent UTIs requiring readmission on both 11/12/15 and 12/07/15. 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 ?? VIR history: 12/29/15: LLQ transplant nephrostomy tube placement (8-Fr locking loop PCN) 01/01/16: Percutaneous nephrostomy check, ureteral stricture balloon dilatation, nephroureterostomy tube placement 02/01/16: Balloon dilation of mid ureteral stricture to 7 mm. Nephrostomy tube up sized to 10.2 Fr. ?? The patient now returns for follow-up evaluation of the nephroureteral stent and UPJ stricture. Request antegrade nephrostogram and ureteral dilation. Patient is on Plavix. Patient Active Problem List Diagnosis Code ??? [...] ??? Bacteremia due to coagulase-negative Staphylococcus R78.81 No Known Allergies Labs: Lab Results Component Value Date/Time WBC 6.9 02/26/2016 10:00 AM ANC 2.99 12/07/2015 08:07 PM HGB 14.5 02/26/2016 10:00 AM HCT 41.2 02/26/2016 10:00 AM PLATELET 189 02/26/2016 10:00 AM INR 1.0 02/01/2016 05:35 AM BUN 17 02/26/2016 10:00 AM CREATININE 1.56 (H) 02/26/2016 10:00 AM Imagin02/01/2016 Physical Exam: Pending (to be performed in angio prior to the procedure) ASA: Pending (to be assessed in angio prior to the procedure) Mallampati Class: Pending (to be assessed in angio prior to the procedure) Assessment / Plan: 65 y.o. male with transplant kidney ureteral stricture. Pt presenting for 3rd ureteral dilation. Pt has appointment with Transplant (Dr. Amaro) scheduled for 03/25/2016. Pt on Plavix. Prophylactic antibiotic: None given on prior interventions Medications to hold: None Planned access site: LLQ Position: Supine Consent: pending arrival in IR. Hebert Moreira IR Fellow Pager# [phone] * Sharmaine Hawkins RN - 02/28/2016 3:34 PM EDT ANGIO NURSING DATABASE Name: ETHEL AKINS Date of : 1950 AGE 65 y.o. [address]: [address] [place] [phone] (home) [phone] (work) Mobile: Telephone Information: Referring Provider: Que Amaro REASON FOR VISIT: Left Third ureteral dilation attempt (Assessment/plan from provider's note, bottom of workup) Copy/paste from provider's note (for all CT's) Anticoagulant/antiplatelet/herbal med. stopped on per MD order. [...] EXTREMITY performed by Que Amaro MD at [facility] MAIN OR ??? Pro transplantation of kidney N/A 09/16/2015 @KIDNEY TRANSPLANT, WITHOUT RECIPIENT NEPHRECTOMY performed by Franko Larkin MD at [facility] MAIN OR ??? Pro transplant, prep cadaver renal graft N/A 09/16/2015 @PREPARATION CADAVERIC RENAL ALLOGRAFT performed by Franko Larkin MD at [facility] OR ??? N/A 09/16/2015 ORGAN ACQUISITION RENAL, CADAVERIC performed by Franko Larkin MD at [facility] OR Date/Procedure? Med's given/comments 01/08/2015: [...] tube. Versed 3mg IV; Fentanyl 150 mcg IV.? Laboratory Results: Lab Results Component Value Date INR 1.0 02/01/2016 Lab Results Component Value Date CREATININE 1.56 (H) 02/26/2016 Lab Results Component Value Date K 3.9 02/26/2016 Lab Results Component Value Date PLATELET 189 02/26/2016 Medications: Prior to Admission medications Medication Sig Start Date End Date Taking? Authorizing Provider valGANciclovir (VALCYTE) 450 mg Tablet Take 1 tablet by mouth 2 times daily. 02/05/16 John Keyes MD omeprazole (PRILOSEC) 20 mg Capsule, Delayed Release(E.C.) Take 20 mg by mouth daily as needed. PROVIDER, HISTORICAL mycophenolate (CELLCEPT) 250 mg Capsule Take 1 capsule by mouth 2 times daily. 01/03/16 Victor Manuel Torre MD sulfamethoxazole-trimethoprim (BACTRIM;SEPTRA) 400-80 mg Tablet Take 1 tablet by mouth every other day for 364 days. 01/03/16 01/01/17 Victor Manuel Torre MD potassium phosphate, monobasic, [...] Del Castillo MD documented in this encounter Procedure Notes * Santosh Ellsworth MD - 03/04/2016 2:41 PM EDT VIR PROCEDURE NOTE Procedure: Antegrade Nephrostogram and Transplant Ureteral Dilation Indication for Procedure: Per Dr. [...] patient was prepped and drapedin supine position. Senior Enterprise Architect image obtained. Contrast injection confirmed catheter location. The catheter was cut and an 0.035 wire was advanced into the bladder and the catheter was removed.A 7 Fr sheath was placed. Contrast injected [...] (an internal-external biliary drain was used; locking loopin bladder, with sideholes extending back into renal collecting system.) Catheter sutured to skin and capped. Medications: Fentanyl 150 mcg IV, Versed 3 mg IV, 1% Lidocaine <10ccs subcutaneous. Antibiotic Prophylaxis: none Est Blood Loss: <5cc. Complications: No immediate Impression: 1. Stenosis of the distal 2-3 cm the transplant ureter, severe focally. 2. Dilatation of ureteral stenosis, 7 mm, (3/3 planned dilatations). 3. Patient to return in approximately 4 weeks for antegrade study, possible conversion to nephrostomy tube (note by Dr. Arredondo 02/12/16). Resident/Fellow: Henrique Restrepo Attending: Dr. Seng I was present throughout this procedure. documented in this encounter Plan of Treatment Upcoming Encounters Date Type Department Care Team (Late st Contact Info) Description 04/15/2024 10:00 AM EDT Hospital Encounter [place] [phone] Arrived documented as of this encounter Procedures Procedure Name Priority Date/Time Associated Diagnosis Comments IR ALL PROCEDURES Routine 03/04/2016 1:55 PM EDT Kidney replaced by transplant documented in [...] nephrostomy tube placement (8-Fr locking loop PCN) 6/28/16: Percutaneous nephrostomy check, ureteral stricture balloon dilatation, [...] was prepped and draped in supine position. Senior Enterprise Architect image obtained. Contrast injection confirmed catheter location. [...] present throughout this procedure. Que Amaro MD [facility] IR ORDERAB LES documented in this encounter Visit Diagnoses Diagnosis Kidney replaced by transplant documented in this encounter Administered Medications Inactive Administered Medications - up to 3 most recent administrations Medication Order MAR Action Action Date Dose Rate Site fentaNYL 50 mcg/mL multi-dose injection 25-50 mcg, Intravenous, EVERY 5 MIN PRN, Starting on Thu03/04/16 at 1225, Until Thu03/04/16 at 1414, Pain, per unit protocol, - Start dose [...] and verbal order., Angio/IR (Intra-Procedure), Routine Given 03/04/2016 1:37 PM EDT 50 mcg Given 03/04/2016 1:26 PM EDT 50 mcg Given 03/04/2016 1:11 PM EDT 50 mcg iohexol (OMNIPAQUE) 350 mg/mL solution 17,500 mg 17,500 mg (50 mL), Other, ONCE PRN, 1 dose, Starting on Thu03/04/16 at 1345, Until Thu03/04/16 at 1315, Per Protocol, Warning Vesicant/Irritant Medication , Routine Given 03/04/2016 1:15 PM EDT 8 m Ls lidocaine (XYLOCAINE) 10 mg/mL (1 %) injection 10 mg 10 mg, Subcutaneous, ONCE, 1 dose, On Thu03/04/16 at 1245, For use in Interventional Radiology (IR) only for procedure with direct provider supervision and verbal order., Angio/IR (Intra-Procedure), Routine Given 03/04/2016 1:43 PM EDT 10 mg midazolam (PF) (VERSED) 1 mg/mL multi-dose injection 0.5-1 mg 0.5-1 mg, Intravenous, EVERY 3 MIN PRN, Starting on Thu03/04/16 at 1225, Until Thu03/04/16 at 1414, Sleep, - Start dose; 1 mg (Reduce [...] and verbal order., Angio/IR (Intra-Procedure), Routine Given 03/04/2016 1:37 PM EDT 1 mg Given 03/04/2016 1:26 PM EDT 1 mg Given 03/04/2016 1:11 PM EDT 1 mg documented in this encounter Care Teams Syrup Filterer Relationship Specialty Start Date End Date AdeelUrbanoDO [address] [place] [address] PCP - General 09/03/12 03/17/22 Ruchi Valles RN Nurse Clinic Transplant Surgery 07/30/15 documented as of this encounter
--- OUTSIDE RECORDS SUMMARY | 2024-02-14 11:31 | XMS_ITS | Encounter Summary ---
[place] [address] Care Team Providers Care Immigration Case Manager Name Role Phone Urbano Denis DO Primary Care Provider [phone] Reason for Visit * Reason Onset Date Comments Other 04/07/2016 Encounter Details Date Type Department Care Team (Late st Contact Info) Description 04/07/2016 [place] [phone] Xiomy Rush, RN Other Social History Tobacco Use Types Packs/Day [...] encounter Miscellaneous Notes * Telephone Encounter - Xiomy Rush, RN - 04/07/2016 1:37 PM EDT Hep C Post kidney Tx. Having issues with restricted ureter. Ballooned x 3. IR and Urology now coordinating surgery for patient. Should pt still come for visit with Dr. Marcelo on 04/10? They've also rec'd letter that Dr. Marcelo is leaving. documented in this encounter Plan of Treatment Upcoming Encounters Date Type Department Care Team (Late st Contact Info) Description 04/15/2024 10:00 AM EDT Hospital Encounter [place] [phone] Arrived documented as of this encounter Visit Diagnoses Not on filedocumented in this encounter Care Teams Immigration Case Manager Relationship Specialty Start Date End Date Urbano Denis DO [address] [place] [address] PCP - General 09/03/12 03/17/22 Ruchi Valles RN Nurse Clinic Transplant Surgery 07/30/15 documented as of this encounter
--- OUTSIDE RECORDS SUMMARY | 2024-02-14 11:31 | XMS_ITS | Encounter Summary ---
Author Organization [facility] [place] [address] Care Team Providers Care Pv Design Engineer Name Role Phone Urbano Denis DO Primary Care Provider [phone] Reason for Visit * Auth/Cert Specialty Diagnoses / Procedures Referred By Humberto t Referred To Contact Diagnoses Fever FEVER, S/P KIDNEY TRANSPLANT Referral ID Status Reason Start Date Expiration Date Visits Re quested Visits Authorized [id number] 1 1 Encounter Details Date Type Department Care Team (Late st Contact Info) Description 04/23/2016 11:00 AM EDT Office Visit [place] [phone] Que Amaro MD [facility] [place] [address] H/O kidney transplant Social History Tobacco Use Types Packs/Day Years Used Date Smoking Tobacco: Some Days Cigars Last attempted to quit: 01/02/2015 Smokeless Tobacco: Never Tobacco Cessation:Ready to Q uit: No; Counseling Given: No Comments:cigars, one weekly Alcohol Use Standard Drinks/Week Comments No 0 (1 standard drink = 0.6 oz pur e alcohol) Sex and Gender Information Value Date Recorded Sex Assigned at Not on file Gender Identity Not on file Sexual Orientation Not on file documented as of this encounter Last Filed Vital Signs Vital Sign Reading Time Taken Comments Blood Pressure 106/65 04/23/2016 11:06 AM EDT Pulse 61 04/23/2016 11:06 AM EDT 56-62-61-65 Temperature 36.3 ??C (97.3 ??F) 04/23/2016 1 1:06 AM EDT Respiratory Rate 12 04/23/2016 11:0 6 AM EDT Oxygen Saturation 97% 04/23/2016 11: 06 AM EDT Inhaled Oxygen Concentration - - Weight 97.2 kg (214 lb 3.2 oz) 04/23/20 16 11:06 AM EDT Height - - Body Mass Index 30.73 02/26/2016 12:10 PM EDT documented in this encounter Progress Notes * Torie Edmonds MD - 04/23/2016 11:00 AM EDT Transplant Surgery Follow-Up Note Patient Name: Cody Bolden Interval History: Cody Bolden returns to transplant surgery clinic following surgery for evaluation. Mr. Bolden is a 65-yo male who is s/p donor kidney transplantation in September of this yearby Dr. Larkin. He developed a ureteral stricture and has undergone a series of ureteral dilation attempts with NU stenting across the stricture. He had repeat imaging and stent exchange on 03/25 thatrevealed continued long segment stricturing. He is here for discussion of upcoming surgery. He denies any change in his medical history. Has notbeen draining his nephrostomy tube. Denies any fevers or chills. Is looking to start treatment for his chronic hepatitis C after this procedure. Past Medical History Diagnosis Date ??? Back [...] FISTULA CREATION, DIRECT HEMODIALYSIS, ANY SITE, EG ASWHINI FISTULA UPPER EXTREMITY performed by Que Amaro MD at [facility] MAIN OR ??? Pro transplantation of kidney N/A 09/16/2015 @KIDNEY TRANSPLANT, WITHOUT RECIPIENT NEPHRECTOMY performed by Franko Larkin MD at [facility] MAIN OR ??? Pro transplant, prep cadaver renal graft N/A 09/16/2015 @PREPARATION CADAVERIC RENAL ALLOGRAFT performed by Franko Larkin MD at [facility] MAIN OR ??? N/A 09/16/2015 ORGAN ACQUISITION RENAL, CADAVERIC performed by Franko Larkin MD at [facility] MAIN OR Social History Social History ??? Marital status: [...] file Social History Narrative REVIEW OF SYSTEMS: Systems review. There are no positive findings Physical examination: BP 106/65 (BP Location (NBP): Right arm, Patient Position: Sitting, BP Cuff Sizes: Large Adult (32-43 cm)) Pulse 61 Comment: 56-62-61-65 Temp 36.3 ??C (97.3 ??F) (Oral) Resp 12 Wt 97.2 kg (214 lb 3.2oz) SpO2 97% BMI 30.73 kg/m2 NAD Regular with ectopic beats CTAB Soft, NT, ND Nephrostomy tube in LLQ- site c/d/i with dressing 03/25: Procedure: Antegrade nephrostogram and nephroureterostomy tube exchange. ? Indication for Procedure: 65 y.o. male with history of transplant kidney c/b ureteral stricture and hydronephrosis. Patient is now s/p 3 of 3 planned ureteroplasty. ? Procedure events and findings: Informed consent was obtained after the risks, benefits and complications of the procedure were all explained. Due to the painful nature of the procedure, patient was sedated by the IR nurse with split doses of fentanyl and versed. ? Maximum sterile barrier technique used throughout the procedure. The patient was prepped and drapedin supine position. Operator Catalyst Concentration image obtained. Contrast injection confirmed catheter location. ? The catheter was cut and an 0.035 wire was advanced into the bladder and the catheter was removed.A 7 Fr sheath was placed. Contrast injection [...] passing through the ureter into the bladder. Guide wire was again advanced into the bladder, catheter andsheath removed. Over the wire, a 10.2 Fr catheter placed (an internal-external biliary drain was used; locking loop in bladder, with sideholes extending back into renal collecting system.) Catheter sutured to skin and capped. ? Medications: Fentanyl 100 mcg IV, Versed 2 mg IV, 1% Lidocaine <10ccs subcutaneous. Antibiotic Prophylaxis: Cipro 500 mg PO Contrast: 20 cc's Omnipaque 350 Fluoro time: 3.9 min Est Blood Loss: <5cc. ? Complications: No immediate ? Impression: ?? 1. 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 Some passage of contrast into the bladder, but it is felt that the degree of narrowing would not support urine output from the transplanted kidney. ?? 2. Exchange of 10.2 Fr locking loop drainage catheter. 3. Per discussion with Dr. Amaro, patient will likely undergo surgical ureteral revision. Subjective Objective Assessment & Plan Assessment and plan: 65 yo male s/p renal transplant 09/2014 who developed long segment ureteral stricture likely secondary to ischemia. Unfortunately not responsive to dilation procedures and continues to require stent for drainage. After discussion with Urology, planning for ureteral diversion of transplanted kidney with implantation of renal pelvis directly to bladder. Will coordinate surgery with Urology for assistance. Tentatively planned for 05/02. Risk and benefits of surgery described including, but not limited to, bleeding, infection, damage to renal transplant, damage to bladder, and need for further interventions. EKG obtained in clinic today- no evidence of arrhthymias Will need type and screen pre-op TORIE EDMONDS MD I have seen the patient [...] EDT Hospital Encounter Non-Invasive [place] [address] Arrived documented as of this encounter Procedures Procedure Name Priority Date/Time Associated Diagnosis Comments EKG 12-LEAD STAT 04/23/2016 11:35 AM EDT H/O kidney transplant documented in this encounter Results * EKG 12 Lead (04/23/2016 11:35 AM EDT) Ventricular rate 66 BPM MUSE SYSTEM Atrial Rate 66 BPM MUSE SYSTEM P-R Interval 170 ms MUSE SYSTEM QRS Duration 112 ms MUSE SYSTEM Q-T Interval 428 ms MUSE SYSTEM QTC Calculated (Bezet) 448 ms MUSE SYSTEM Calculated P Jackson 39 degrees MUSE SYSTEM Calculated R Jackson -54 degrees MUSE SYSTEM Calculated T Jackson -9 degrees MUSE SYSTEM INTERPRETATION Sinus rhythm with Premature supraventricular complexes Left anterior fascicular block Abnormal ECG When compared with ECG of 07-DEC-2015 20:48, No significant change was found Confirmed by MD RODRIGO, MOY ([id number]) on 04/23/2016 4:59:28 PM MUSE SYSTEM 04/23/2016 11:3 5 AM EDT 04/23/2016 4:59 PM EDT Que Amaro MD ECG ORDERABLES MUSE SYSTEM documented in this encounter Visit Diagnoses Diagnosis H/O kidney transplant Kidney replaced by transplant documented in this encounter Care Teams Pv Design Engineer Relationship Specialty Start Date End Date Urbano Denis DO [address] [place] [address] PCP - General 09/03/12 03/17/22 Ruchi Valles RN Nurse Clinic Transplant Surgery 07/30/15 documented as of this encounter
--- OUTSIDE RECORDS SUMMARY | 2024-02-14 11:31 | XMS_ITS | Encounter Summary ---
Author Organization [facility] [place] [address] Care Team Providers Care Cake Wrapper Name Role Phone Urbano Denis DO Primary Care Provider + [phone] Reason for Visit * Consultation (Routine) - Closed Specialty Diagnoses / Procedures Referred By Humberto flor Referred To Contact Infectious Diseases Diagnoses Bacteremia Dina Moon [facility] [place] [address] [facility] [place] [address] Referral ID Status Reason Start Date Expiration Date V isits Requested Visits Authorized [id number] Closed Assume Subset of Care 02/04/2016 02/03/2017 1 1 Encounter Details Date Type Department Care Team (Late st Contact Info) Description 02/15/2016 10:30 AM EDT Office [place] [address] [facility] [place] [address] Bacteremia; Pyelonephritis, acute; long-term current use of antibiotics Social History Tobacco [...] Sign Reading Time Taken Comments Blood Pressure 148/84 02/15/2016 10:31 AM EDT Pulse 68 02/15/2016 10:31 AM EDT Temperature - - Respiratory Rate 18 02/15/2016 10:31 AM EDT Oxygen Saturation - - Inhaled Oxygen Concentration - - Weight 95.3 kg (210 lb) 02/15/2016 10:31 AM EDT Height 177.8 cm (5' 10) 02/15/2016 10:31 AM EDT Body Mass Index 30.13 02/15/2016 10:31 AM EDT documented in this encounter Progress Notes * Dina Moon DO - 02/15/2016 10:30 AM EDT Infectious Disease Clinic - OPAT follow-up ID Diagnosis: Bacteremia, secondary to Urinary Infection [...] (5' 11) Responsible Attending: Dina Moon DO Subjective: Feeling well, capped nephro-uretero tube on 02/10, urinating without difficulty, no dysuria or hematuria, no fever/chills, no abdominal pain or pain over kidney, getting antibiotics daily at [facility] through PICC, seen by transplant and urology earlier this week, plan for stricture dilatation in a few weeks, tolerating antibiotics without side effects, PICC working well. Physical Exam: General Well appearing Neuro A&O x 3 in NAD. Heart RRR, no murmurs, rubs, gallops. Lungs CTAB without wheezes, rhonchi, rales. Abdomen Soft, nontender, nondistended. LLQ scar, no tenderness over kidney, nephrostomy tube cappedand in place, positive bowel sounds. Ext RUE PICC looks good Skin No skin lesions noted. 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 S/p transplant ureteroplasty and nephroureterostomy tube exchange on 01/31. Blood and urine cultures neg on 02/01. On Vancomycin for anticipated 3-4 week course given complicated UTI with stent in place. Now that tube is capped, patient encouraged to call immediately with any worsening signs or symptoms of infection. ?? Recommendations: - Continue Vancomycin 1.5g Q24H IV (goal trough 10-15) - Weekly CBC, CMP, and troughs every 3 days - Follow up with ID towards end of therapy Dina Moon DO, MPH Infectious Disease documented in this encounter Plan of Treatment Upcoming Encounters Date Type Department Care Team (Late st Contact Info) Description 04/15/2024 10:00 AM EDT Hospital Encounter Non[place] [address] Arrived Scheduled Referrals Name Type Priority Associated Diagnoses Order Schedule OPAT: Order / Recommendation for Post Discharge IV Antibiotic Management Outpatient Referral Routine Bacteremia Ordered: 02/04/2016 documented as of this encounter Visit Diagnoses Diagnosis Bacteremia Pyelonephritis, acute Acute pyelonephritis without lesion of renal medullary necrosis 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
--- OUTSIDE RECORDS SUMMARY | 2024-02-14 11:31 | XMS_ITS | Encounter Summary ---
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 Temp done in ID Pulse 58 02/26/2016 12:10 PM EDT Temperature 36.6 ??C (97.8 ??F) 02/26/2016 1 2:10 PM EDT Respiratory Rate 18 02/26/2016 12:1 0 PM EDT Oxygen Saturation - - Inhaled Oxygen Concentration - - Weight 98 kg (216 lb) 02/26/2016 12:10 PM EDT Height 177.8 cm (5' 10) 02/26/2016 12: 10 PM EDT Body Mass Index 30.99 02/26/2016 12:10 PM EDT documented in this encounter Progress Notes * Aubrey oHrvath MD - 02/26/2016 12:00 PM EDT Infectious Disease Clinic - OPAT follow-up [...] Start date: 02/02/2016 Anticipated stop date: 02/23/2016 - extended until today due to f/u visit. Labs: Every Thursday: CBC, CMP (Vanco trough every 3 days after 02/06/16) Last documented weight (kg): 92.3 kg (203 lb 8 oz) Last documented height (cm): 180.3 cm (5' 11) Subjective: Tolerated the antibiotics well. Saw transplant today - discussing expanding the ureter one more time, if that doesn;t work, may need surgery. Going to IR next Thursday. Feeling well, capped nephro-uretero tube on 02/10, urinating without difficulty, no dysuria or hematuria, no fever/chills, no abdominal pain or pain over kidney, getting antibiotics daily at [facility] through PICC. PICC working well. Physical Exam: General Well appearing Neuro A&O x 3 in NAD. Heart RRR, no murmurs, rubs, gallops. Lungs CTAB without wheezes, rhonchi, rales. Abdomen Soft, nontender, nondistended. LLQ scar, no tenderness over kidney, nephrostomy tube cappedand in place. Ext RUE PICC looks good Skin Small area of erythema next to PCN site. No fluctuance.. Labs: 02/24 CBC normal Cr 1.68 LFTs normal Urine today - 4WBC. 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 S/p transplant ureteroplasty and nephroureterostomy tube exchange on 01/31. Blood and urine cultures neg on 02/01. On Vancomycin for anticipated 3 week course given complicated UTI with stent in place. Tube is capped and he is doing well. Plan for repeat dilation next week. Will stop antibiotics and follow clinically. All current hardware was placed in the setting of antibiotics, so should not be infected. The patient was encouraged to call immediately with any worsening signs or symptoms of infection. OTHER: Prophylaxis: CMV: D+/R+ : on valcyte. 3 months is typical could probably stop prophylaxis and follow clinically - will leave to transplant team. Bactrim for PJP - 6 months. BKV: recently undetectable. HCV: Seeing Dr. Marcelo. ?? Recommendations: - discontinue Vancomycin - pull picc today in clinic - f/u transplant and IR - prophylaxis as above - should be able to stop valcyte. No further ID f/u scheduled. 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
--- OUTSIDE RECORDS SUMMARY | 2024-02-14 11:31 | XMS_ITS | Encounter Summary ---
Author Organization [facility] [place] [place] [address] Care Team Providers Care Composition Roll Maker And Cutter Name Role Phone AdeelUrbano boland Primary Care Provider [phone] Encounter Details Date Type Department Care Team (Late st Contact Info) Description 02/20/2016 Notes Only Infectious Disease at [facility] [place] [address] Es Arreaga, RN Social History Tobacco Use [...] Progress Notes * Es Arreaga RN - 02/20/2016 1:53 PM EDT OPAT: Order / Recommendation for Post Discharge [...] Start date: 02/02/2016 Anticipated stop date: 02/23/2016 (Will Extend stop date to 02/25/26 to coordinate w/ follow-up appt.) Labs: Every Thursday: CBC, CMP (Vanco trough every 3 days after 02/06/16) Last documented weight (kg): 92.3 kg (203 lb 8 oz) Last documented height (cm): 180.3 cm (5' 11) Responsible Attending: Dina Moon DO Patient will have follow w/ both transplant and ID on 02/26/16. We will extend the IV Vancomycin until that time. documented in this encounter Plan of Treatment Upcoming Encounters Date Type Department Care Team (Late st Contact Info) Description 04/15/2024 10:00 AM EDT Hospital Encounter Non-Invasive [place] [address] Arrived documented as of this encounter Visit Diagnoses Not on filedocumented in this encounter Care Teams Composition Roll Maker And Cutter Relationship Specialty Start Date End Date Urbano Denis DO [address] [place] [address] [address] [place] [address] PCP - General 09/03/12 03/17/22 Ruchi Valles RN Nurse Clinic Transplant Surgery 07/30/15 documented as of this encounter
--- OUTSIDE RECORDS SUMMARY | 2024-02-14 11:32 | XMS_ITS | Encounter Summary ---
[place] [address] Care Team Providers Care Room Server Name Role Phone Urbano Denis DO Primary Care Provider [phone] Reason for Referral * Consultation (Routine) - Closed Specialty Diagnoses / Procedures Referred By Contpaula t Referred To Contact Infectious Diseases Diagnoses Bacteremia Ramez Serrano [facility] [place] [address] Ramez Serrano [facility] [place] [address] Referral ID Status Reason Start Date Expiration Date V isits Requested Visits Authorized [id number] Closed Assume Subset of Care 02/04/2016 02/03/2017 1 1 * Diagnostic Test (Routine) - Closed Specialty Diagnoses / Procedures Referred By Contac t Referred To Contact Radiology Diagnoses Kidney replaced by transplant Procedures IR all procedures Epifanio Torre MD [facility] [place] [address] [facility] [place] [address] Referral ID Status Reason Start Date Expiration Date V isits Requested Visits Authorized [id number] Closed Specialty Service Requested 01/31/2016 01/30/2017 1 1 Reason for Visit * Auth/Cert Specialty Diagnoses / Procedures Referred By Contac t Referred To Contact Diagnoses UTI, FEVER S/P KIDNEY TRANSPLANT Referral ID Status Reason Start Date Expiration Date Visits Re quested Visits Authorized [id number] 1 1 Encounter Details Date Type Department Care Team (Late st Contact Info) Description 01/29/2016 10:10 PM EDT - 02/05/2016 12:27 PM EDT Hospital Encounter [address] [place] [address] Madhu Eagle MD [facility] [place] [address] Que Amaro MD [facility] [place] [address] Kidney replaced by transplant; Bacteremia; ESRD (end stage renal disease) Discharge Disposition: [...] Sign Reading Time Taken Comments Blood Pressure 156/72 02/05/2016 8:00 AM EDT Pulse 63 02/05/2016 8:00 AM EDT Temperature 36.6 ??C (97.9 ??F) 02/05/2016 8:00 AM ED T Respiratory Rate 16 02/05/2016 8:00 AM EDT Oxygen Saturation 97% 02/05/2016 8:00 AM EDT Inhaled Oxygen Concentration - - Weight 92.3 kg (203 lb 8 oz) 02/04/2016 6:09 AM EDT Height 180.3 cm (5' 11) 01/29/2016 10:50 PM EDT Body Mass Index 28.38 01/29/2016 10:50 PM EDT documented in this encounter Discharge Summaries * John Keyes MD - 02/05/2016 8:59 AM EDT Discharge Summary Patient Name: Ethel Akins Patient Age: 65 y.o. Language: Guamanian Race: White Ethnicity: Not nor Admit date: 01/29/2016 Discharge date and time: 02/05/2016 Attending Physician: Que Amaro,* Discharge Physician: MADHU EAGLE CHRISTOPHER E Follow-up Recommendations for Providers: -Please contact the [facility] Transplant team before changing any medications in Mr. Akins's regimen. Inpatient Provider Contact Information: Que Amaro M.D. [facility] [phone] Discharge Diagnoses (Hospital Problems) and Secondary Diagnoses (Chronic Problems): Active Hospital Problems Diagnosis ??? Fever ??? Bacteremia due to coagulase-negative Staphylococcus ??? HCV (hepatitis C virus) ??? DM type 2 (diabetes mellitus, type 2) ??? Hypertension Resolved Hospital Problems Diagnosis Date Resolved No resolved problems to display. Active Non-Hospital Problems Diagnosis ??? UTI (urinary tract infection) ??? RAY (acute kidney injury) ??? Kidney transplant infection ??? Renal failure ??? Chronic kidney disease, stage V ??? ESRD (end stage renal disease) ??? Hepatitis C virus infection ??? Essential hypertension ??? CGN (chronic glomerulonephritis) ??? DJD (degenerative joint disease) ??? Hematuria ? Operations/Major Procedures: ?? 02/01/2016: IR nephrostogram, balloon dilation of mid-ureter stricture, placement of up-sized nephrouretostomy tube ? History of Presentation: Ethel Akins is a 65 y.o. male, with a history of donor kidney transplant from a HCV positive donor in September 2015. His recovery has been complicated by complicated UTI, bacteremia, and fluid retention all requiring hospitalizations. He states that he was feeling fine until this morning when he just didn't feel right and his noted a fever of 101.9F. He denies abdominal pain, chest pain, and shortness of breath. He was directly admitted to [facility] on 01/29/16 for further work-upand treatment. ?? Hospital Course: ?? Ethel Akins was admitted to [facility] on the night of 01/29/16. Upon admission simmons cultures were started, he was placed empirically on vancomycin and zosyn. U/A showed small amount of leukocytes andculture grew 1,000-9,000 cfu GPC. His nephrostomy tube was kept to gravity. He was given a 1L IV bolus of NS, with subsequent IV infusion of NS at 150 cc/hr. Admission labs showed mild leukocytosis and mildly elevated TBili (2.0), which subsequently downtrended. ?? 01/30/16 - HD1 Orders were placed for CMV PCR, BK virus quantitative analysis, which is still being processed at time of discharge. Urology recommended serial bladder scans and obtaining urine for analysis and culture from the nephrostogram the following day. He spiked a mild fever to 38.4; repeat cultures were not sent. Urology consulted for continuity of care. ?? 01/31/16 - HD 2 Spiked a fever of 38.6 at midnight, repeat blood cultures x2 and UA with reflex cultures were sent.His original blood cultures from admission came back positive with coagulase negative staphylococcus x2. IR nephrostogram postponed given his bacteremia. ?? 02/01/16 - HD 3 Patient had remained afebrile for over 24 hours and HD #2 repeat blood cultures showed NGTD, so IR nephrostogram was performed. In the procedure, his stricture was dilatated using a balloon and his nephrouretostomy tube was upsized. Infectious disease consulted for MSSA bacteremia and recommended vancomycin trough goal of 10-15, cessation of pip/tazo, and following culture and sensitivity data. ?? 02/02/16 - HD 4 Patient had remained afebrile for over 48 hours and 02/01/16 blood cx demonstrated Gram positive cocci. Sensitivities returned with bacteremia sensitive to vancomycin. Vanc continued, IV hydration given in addition to PO fluid intake, nephroureterostomy to gravity. ?? 02/03/16 - HD 5 Patient had remained afebrile for 72 hours. Blood cultures negative. NU tube remained externalized to SD, with no pain or purulence over site. Cr improved. IVF discontinued, with PO fluids encouraged. He drank 2.6 L of fluid. He remained stable throughout the day. ?? 02/04/16 - HD 6 Patient remained stable and afebrile for 96 hours. Blood cultures negative. PICC line was placed for OP antibiotic administration. Urology recommended not to cap NU tube. This will be capped at home on , 02/14/16 before F/U appointments with Transplant Surgery, Urology, and IR on 02/15/16. 02/05/16 - HD 7 Patient continued to remain stable and afebrile. ID recommended 1.5 g Vancomycin infusion as OP. Vancomycin trough on Thursday, 02/05, with trough levels pulled every 3 days thereafter. Ready for discharge today. Vital Signs at Discharge: BP: 156/72, Heart Rate: 63, Temp: 36.6 ??C (97.9 ??F), Resp: 16, Height: 180.3 cm (5' 11) (01/29/16 2250) Weight - Scale: 92.3 kg (203 lb 8 oz) (02/04/16 0609) Functional and Cognitive Status: Intact Important Studies and Lab Data: Labs: Recent Results (from the past 72 hour(s)) Urine culture Nephrostomy Urine Result Value Ref Range Urine Culture No growth (Less than 100 cfu/ml). Basic Metabolic Panel (non-fasting) Result Value Ref Range Glucose Lvl 142 65 - 199 mg/dL BUN 13 10 - 20 mg/dL Creatinine 1.23 0.80 - 1.50 mg/dL Sodium 140 135 - 145 mmol/L Potassium 3.6 3.5 - 5.0 mmol/L Chloride 102 98 - 107 mmol/L CO2 24 22 - 31 mmol/L Anion Gap 14 5 - 15 mmol/L Calcium 9.4 8.5 - 10.5 mg/dL Estimated GFR 59 (L) >=60 Blood culture Result Value Ref Range Blood Culture No growth at 2 days. Magnesium Result Value Ref Range Magnesium 0.54 (L) 0.69 - 1.07 mmol/L Phosphorus Result Value Ref Range Phosphorus 2.6 2.5 - 4.5 mg/dL Hemogram Result Value Ref Range WBC 6.8 4.0 - 10.0 x10(3)/mcL RBC 4.43 (L) 4.63 - 6.08 x10(6)/mcL Hemoglobin 13.9 13.7 - 17.5 gm/dL Hematocrit 39.8 (L) 40.0 - 51.0 % MCV 89.8 79.0 - 92.0 fL MCH 31.4 25.6 - 32.2 pg MCHC 34.9 32.0 - 36.5 gm/dL Platelets 194 145 - 370 x10(3)/mcL RDWSD 47.2 (H) 35.0 - 46.0 fL RDWCV 14.3 10.9 - 14.4 % MPV 9.6 9.0 - 12.0 fL nRBC % Auto 0.0 % nRBC Abs Auto 0.000 0.000 - 0.012 x10(3)/mcL Differential, Automated Result Value Ref Range Neutrophils % 67.6 % Neutr Abs (ANC) 4.57 1.50 - 6.30 x10(3)/mcL Lymphocytes % 19.6 % Lymphocytes Abs 1.3 1.0 - 3.6 x10(3)/mcL Monocytes % 6.6 % Monocyte Abs 0.4 0.2 - 1.0 x10(3)/mcL Eosinophils % 4.9 % Eosinophils Abs 0.3 0.0 - 0.5 x10(3)/mcL Basophils % 1.2 % Basophils Abs 0.1 0.0 - 0.2 x10(3)/mcL Immature Gran % 0.10 % Ayesha Gran Abs 0.01 0.00 - 0.05 x10(3)/mcL Vancomycin, trough Result Value Ref Range Vanc Trough 10.8 mg/L Hemogram Result Value Ref Range WBC 7.1 4.0 - 10.0 x10(3)/mcL RBC 4.48 (L) 4.63 - 6.08 x10(6)/mcL Hemoglobin 14.0 13.7 - 17.5 gm/dL Hematocrit 40.3 40.0 - 51.0 % MCV 90.0 79.0 - 92.0 fL MCH 31.3 25.6 - 32.2 pg MCHC 34.7 32.0 - 36.5 gm/dL Platelets 198 145 - 370 x10(3)/mcL RDWSD 46.6 (H) 35.0 - 46.0 fL RDWCV 14.2 10.9 - 14.4 % MPV 9.3 9.0 - 12.0 fL nRBC % Auto 0.0 % nRBC Abs Auto 0.000 0.000 - 0.012 x10(3)/mcL Differential, Automated Result Value Ref Range Neutrophils % 68.1 % Neutr Abs (ANC) 4.82 1.50 - 6.30 x10(3)/mcL Lymphocytes % 20.3 % Lymphocytes Abs 1.4 1.0 - 3.6 x10(3)/mcL Monocytes % 6.1 % Monocyte Abs 0.4 0.2 - 1.0 x10(3)/mcL Eosinophils % 4.1 % Eosinophils Abs 0.3 0.0 - 0.5 x10(3)/mcL Basophils % 1.1 % Basophils Abs 0.1 0.0 - 0.2 x10(3)/mcL Immature Gran % 0.30 % Ayesha Gran Abs 0.02 0.00 - 0.05 x10(3)/mcL Basic Metabolic Panel (non-fasting) Result Value Ref Range Glucose Lvl 144 65 - 199 mg/dL BUN 12 10 - 20 mg/dL Creatinine 1.32 0.80 - 1.50 mg/dL Sodium 141 135 - 145 mmol/L Potassium 4.2 3.5 - 5.0 mmol/L Chloride 102 98 - 107 mmol/L CO2 23 22 - 31 mmol/L Anion Gap 16 (H) 5 - 15 mmol/L Calcium 9.6 8.5 - 10.5 mg/dL Estimated GFR 54 (L) >=60 Blood culture Result Value Ref Range Blood Culture No growth at 1 day. Magnesium Result Value Ref Range Magnesium 0.61 (L) 0.69 - 1.07 mmol/L Phosphorus Result Value Ref Range Phosphorus 2.9 2.5 - 4.5 mg/dL Tacrolimus level Result Value Ref Range Tacrolimus Lvl 9.1 ng/mL Basic Metabolic Panel (non-fasting) Result Value Ref Range Glucose Lvl 135 65 - 199 mg/dL BUN 12 10 - 20 mg/dL Creatinine 1.36 0.80 - 1.50 mg/dL Sodium 140 135 - 145 mmol/L Potassium 3.8 3.5 - 5.0 mmol/L Chloride 103 98 - 107 mmol/L CO2 26 22 - 31 mmol/L Anion Gap 11 5 - 15 mmol/L Calcium 9.1 8.5 - 10.5 mg/dL Estimated GFR 52 (L) >=60 Magnesium Result Value Ref Range Magnesium 0.57 (L) 0.69 - 1.07 mmol/L Phosphorus Result Value Ref Range Phosphorus 2.9 2.5 - 4.5 mg/dL Hemogram Result Value Ref Range WBC 8.4 4.0 - 10.0 x10(3)/mcL RBC 4.23 (L) 4.63 - 6.08 x10(6)/mcL Hemoglobin 13.5 (L) 13.7 - 17.5 gm/dL Hematocrit 38.7 (L) 40.0 - 51.0 % MCV 91.5 79.0 - 92.0 fL MCH 31.9 25.6 - 32.2 pg MCHC 34.9 32.0 - 36.5 gm/dL Platelets 215 145 - 370 x10(3)/mcL RDWSD 48.2 (H) 35.0 - 46.0 fL RDWCV 14.4 10.9 - 14.4 % MPV 9.0 9.0 - 12.0 fL nRBC % Auto 0.0 % nRBC Abs Auto 0.000 0.000 - 0.012 x10(3)/mcL Differential, Automated Result Value Ref Range Neutrophils % 67.5 % Neutr Abs (ANC) 5.66 1.50 - 6.30 x10(3)/mcL Lymphocytes % 20.4 % Lymphocytes Abs 1.7 1.0 - 3.6 x10(3)/mcL Monocytes % 6.4 % Monocyte Abs 0.5 0.2 - 1.0 x10(3)/mcL Eosinophils % 4.2 % Eosinophils Abs 0.4 0.0 - 0.5 x10(3)/mcL Basophils % 1.0 % Basophils Abs 0.1 0.0 - 0.2 x10(3)/mcL Immature Gran % 0.50 % Ayesha Gran Abs 0.04 0.00 - 0.05 x10(3)/mcL Studies: Xr Vas Venous Access (picc Placement) Result Date: 02/04/2016 EXAMINATION: XR PLACEMENT PICC LINE (IV TEAM) OVER 5 YEARS CLINICAL HISTORY: Confirmation of PICC line placement TECHNIQUE: C-arm placement of PICC. Limited view of the line tip only. COMPARISON: January 30, 2016. FINDINGS: Intraprocedural frontal radiograph of the mediastinum demonstrates a Right PICC, with the catheter tip projected at the superior cavoatrial junction. Xr Chest Pa & Lateral (generic) Result Date: 01/30/2016 EXAMINATION: XR CHEST ROUTINE PA AND LATERAL CLINICAL HISTORY: Fevers in immunosuppressed patient, rule out pneumonia TECHNIQUE: Standing PA and lateral chest COMPARISON: 12/07/2015 FINDINGS: There is no interval change. In particular, the lungs remain clear. Cardial mediastinal silhouette and nelly appear normal. No pleural effusion or other acute finding is seen. No pneumonia or other acute cardiopulmonary process. Ir All Gu Procedures Result Date: 02/01/2016 IR Procedure Note? Procedure: LLQ transplant ureteroplasty and nephroureterostomy tube exchange. ?? 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 He continues to void and double void in order to avoid over distension of his bladder. PCN was placed 12/29/2015, converted to nephroureteral catheter after ureteral balloon dilatation on 12/31. Pt reports today for repeat ureteroplasty and exchange of nephroureteral tube. ?? Technique: Informed consent was obtained after the risks, benefits and complications of the procedure were all explained. Due to the painful nature of the procedure, patient was sedated by the IR nurse with split doses of fentanyl and versed. ?? Maximum sterile barrier precautions were used throughout the procedure. The patient was prepped and draped in supine position. Manager Medicaid image obtained. 7 cc 1% lidocaine SQ anesthesia administered. The catheter was cut and an 0.035 Billings wire was placed in the bladder and the catheter was removed. A 7 Fr sheath was placed into the renal collecting system. Contrast injected and spot imageshowed minimal contrast passage into the bladder and a focal stenosis in the mid ureter. Over the wire, a 7 mm angioplasty balloon advanced, and stricture dilated (20 opal x 3 min x 3 overlapping inflations). Contrast injection showed improved antegrade flow through the ureter. Over the wire, a 10.2Fr nephroureterostomy tube placed (a internal-external biliary drain was used; locking loop distal,with sideholes extending back into renal collecting system across the stricture.) Catheter sutured to skin and left to gravity drainage bag. ?? Medication: 1% lidocaine-7 cc's, Fentanyl 100 mcg IV, Versed 2 mg IV Contrast: 12 cc non-ionic/omnipaque Fluoroscopy time: 6 min EBL: 0 cc ? 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 Balloon dilated to 7 mm without waist, andup-sized 10.2 Fr nephroureterostomy placed. Plan: Repeat ureteroplasty in 2-4 weeks. ?? Fellow: Jaylin Moreira DO Attending: Jade Nelson MD (I was present and scrubbed for the entire procedure) ? Pending Studies and Lab Data: The patient will need the following 4 tests completed on: 01/29/2016 1. Lower Respiratory Culture Sputum Expectorated 3. BKV Quant Blood 2. BK Quant Blood Result 4. Blood culture Diagnosis: Authorizing Provider: Madhu Eagle MD, Que Amaro MD Discharge Conditions/Prognosis: Doing well, ambulating without assistance, tolerating PO diet, afebrile, adequate PO fluid intake, UOP good. Discharge to: home Updated Allergies/ADRs: No Known Allergies Immunizations Given this Hospitalization: Immunization History Administered Date(s) Administered ??? Hepatitis B Vaccine, unspecified formulation 04/16/2015, 05/14/2015, 06/20/2015 ??? Influenza PF, Split 06/04/2012, 05/26/2013 ??? Influenza Vaccine PF, Quadrivalent (6-35 Mos) 04/04/2015 ??? Pneumococcal Polyvalent 23 06/20/2014, 04/11/2015 ??? Td, adult 07/06/2000, 05/20/2011 ??? Zoster Vaccine, Live 07/17/2015 Discharge Medications: Your Medications Continued medications with new dosing Dose Details Magnesium Gluconate 27 mg (500 mg) Tab Take 2 tablets by mouth 4 times daily. What changed: - how much to take - when to take this 2 tablet Refills: 0 valGANciclovir 450 mg Tab Commonly known as: VALCYTE Take 1 tablet by mouth 2 times daily. What changed: when to take this 450 mg Quantity: 30 tablet Refills: 3 Continued medications, unchanged Dose Details acetaminophen 325 mg Tab Commonly known as: TYLENOL Take 2 tablets by mouth every 4 hours as needed for Pain. 650 mg Quantity: 30 tablet Refills: 1 calciTRIol 0.5 mcg Cap Commonly known as: [...] 120 mg Quantity: 30 capsule Refills: 11 levothyroxine 75 mcg Tab Commonly known as: SYNTHROID Take 75 mcg by mouth daily. 75 mcg Refills: 0 mycophenolate 250 mg Cap Commonly [...] 1000 mg Quantity: 1 tablet Refills: 0 sulfamethoxazole-trimethoprim 400-80 mg Tab Commonly known as: BACTRIM;SEPTRA Take 1 tablet by mouth every other day for 364 days. 1 tablet Quantity: 15 tablet Refills: 11 tacrolimus 1 mg Cap Commonly known as: PROGRAF Take 1 mg by mouth 2 times daily. 1 mg Refills: 0 tamsulosin 0.4 mg Cp24 Commonly known as: FLOMAX Take 1 capsule by mouth nightly. 0.4 mg Quantity: 30 capsule Refills: 11 Smoking Status at Discharge: History Smoking Status ??? Former Smoker ??? Types: Cigars ??? Quit date: 01/02/2015 Smokeless Tobacco ??? Never Used Comment: cigars, only sometimes Multidisciplinary Team Recommendations: - DIPPER AND BAKER TEAM: The charter coordinator has completed the standard post operativepatient teaching per protocol, including identification of barriers to self-care. This included psychosocial evaluation, medication review, review of signs/symptoms of rejection and infection, monitoring (vitals signs, weight, intake/output), diet/fluid restrictions, drain care (if applicable), wound care (if applicable), follow up protocol for lab and clinic. You have completed the transplant test and you have received the discharge education manual and instructional DVD. Your overall health care plan, including your primary care provider plan and routine health maintenance plan were also reviewed. Instruction was given for contacting the team any time of day/night/weekend for questions/concerns. - UROLOGY TEAM: Your nurse will educate you regarding how to cap your nephrostomy tube. When you cap your tube on 02/14/16, if you experience a fever or flank pain after capping, please uncap your tube. You will be seen by Transplant Surgery and Urology in clinic on Thursday, February 15, 2016. You also have a nephrostogram with Interventional Radiology scheduled for February 14 as well. Patient Instructions: 1. No heavy lifting for six weeks; do not lift more than ten pounds or strain. 2. You may shower. However, you must avoid baths until you stent is removed. 3. Prevent constipation by taking stool softeners regularly and notify the team if you do not have a daily bowel movement. 4. Notify the transplant team of fever (temperature > 100.0), redness, swelling, new drainage, worse pain, nausea, vomitting, diarrhea, constipation, shaking/tremor, sleepiness, insomnia, cough, difficulty urinating, burning with urination, frequent need to urinate, chest pain, shortness of breath, or other concern. 5. Do not start or stop any medications without notifying the transplant team. This can affect the level of your immunosuppression, which is dangerous. 6. Monitor the medications you are on and otain refills ahead of time. You should not miss a dose of immunosuppression for any reason. Call several days ahead to place refill requests. 7. Your intake goal is 2.5-3 L/D. Space your intake out evenly for the duration of the day and notify the transplant team if you are unable to reach your goal. Measure your output. Chart your intake and output in your log book and bring the book with you to clinic. Always take a bottle of water with you wherever you go so that you can stay on schedule. 8. Avoid beverages with caffeine (coffee, tea, soda, energy drinks). Decaffeinated beverages are safe. 09. If you are diabetic, avoid sugary beverages (soda, juice) and monitor your blood sugars. Keep track of your results in your log book and notify the transplant team for fingersticks that are below60 or above 250. 10. Your tube will be reassessedin urology clinic on 02/15/16. This will be arranged for you. 11. You are more susceptible to infection. Avoid being around anyone who is sick, coughing, sniffling, or has a fever. Avoid close spaces such as airplanes, movie theaters, and restaurants for at least one month following your surgery. 12. Empty your bladder regularly to avoid urinary retention. 13. Avoid uncooked meats and raw eggs until cleared by the transplant team. 14. Avoid direct contact with pet or wild birds, litter boxes, and fish tanks. Contact with dogs and cats is reasonably safe. 15. No driving for at least two weeks and until approved by transplant team. Instructions Given to Patient at Discharge: There are no outpatient Patient Instructions on file for this admission. General Instructions None Future Appointments and Orders Future Appointments Provider Department Dept Phone 02/12/2016 7:30 AM Santosh Arredondo MD Urology [phone] 02/15/2016 9:00 AM TRANSPLANT, COORDINATOR Transplant [phone] 02/15/2016 10:00 AM Que Amaro MD Transplant [phone] 04/10/2016 11:30 AM Tulio Marcelo MD Gastroenterology [phone] 09/15/2016 9:00 AM LAB, [facility] Lab 3L [phone] 09/15/2016 10:00 AM Madhu Eagle MD Transplant [phone] Future Orders Complete By Expires OPAT: Order / Recommendation for Post Discharge IV Antibiotic Management [GWY571 CPT(R)] As directed Process Instructions: If no progress note charted, please enter Clinical details in comments. Scheduling Instructions: Comments: Please Fax all results to: OPAT Program Infectious Disease Section [facility], [place] [address] FAX: Line care instructions per [facility] OPAT Program protocol. After hours, please contact the Infectious Disease Physician electric gas appliances demonstrator at . If this order was signed greater than 72 hours prior to [facility] discharge, please call to confirm the accuracy of this order. Questions: ID Diagnosis: Bacteremia, secondary to Urinary Infection Microorganisms being treated: Coag neg staph Antibiotic Allergies: No known allergies Antibiotic (one line for each ABx): Vancomycin 1.5g IV daily recommend vanco trough February 05 just prior to dose and every 3 days thereafter, with a goal of 10-15 Start date: 02/02/2016 Anticipated stop date: 02/23/2016 Labs: Every Thursday: CBC, CMP Comment - Vanco trough every 3 days after 02/06/16 Last documented weight (kg): 92.3 kg (203 lb 8 oz) Last documented height (cm): 180.3 cm (5' 11) Responsible Attending: Ramez Serrano DO Scheduled Appointments: You are scheduled to receive routine follow-up care in the transplant clinic: Solid Organ Transplant Department [facility], section [address] [place], [place] [id number] Future Appointments Date Time Provider Department Center 02/12/2016 7:30 AM Santosh Arredondo MD [facility] Uro [facility] 02/15/2016 9:00 AM TRANSPLANT, COORDINATOR [facility] 02/15/2016 10:00 AM Que Amaro MD Leb Trans [facility] 04/10/2016 11:30 AM Tulio Marcelo MD [facility]b Gastro [facility] 09/15/2016 9:00 AM LAB, THREE L Lab [address] [place] [address] 09/15/2016 10:00 AM Madhu Eagle MD Leb Trans 2M [facility] Orders for After Discharge: LAB DRAWS: Prior [...] any changes that need to be made. OPAT: Order / Recommendation for Post Discharge IV Antibiotic Management Referral Priority: Routine Referral Type: Consultation Referral Reason: Assume Subset of Care Referred to Provider: RAMEZ SERRANO Number of Visits Requested: 1 Provider Contact Information: If you have any questions, or need to report a problem, you can call the Solid Organ Transplant Department anytime (day, night, weekend, holiday) at . After hours, please follow the instructions on the message. You can also reach the charter coordinator after hours by calling (ask for the charter coordinator on-call). Discharge References/Attachments None documented in this encounter Medications at Time [...] as of this encounter Progress Notes * Brandee Akins RN - 02/05/2016 11:37 AM EDT Pt discharged home with . To have IV antibiotic (vancomycin) treatment at outside hospital starting this afternoon. All discharge paperwork gone over and provided to pt. All necessary supplies provided to pt. All questions and concerns addressed. Nothing further at this time. * John Keyes MD - 02/05/2016 9:18 AM EDT Transplant Progress Note Ethel Akins is a 65 y.o. 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 He was admitted to the Transplant Surgery service for fever and cloudy urine that began on 01/29/16, s/p DDKT and nephrostomy tube placement. 24HR events: - Afebrile - Stable vitals, SBP reached 170s, however this was taken with BP cuff on calf, inconsistent with previous measurement site - Admission blood cxs with coagulase negative staff, sensitivities returned (sensitive to clindamycin, erythromycin, vanc, and tetracycline) - PO intake 2.95 L - Nephrostomy tube secured by IR using clip and adhesive Physical Examination: Gen: NAD Neuro: A+Ox3, speech fluent and appropriate Cardio: RRR Pulm: CTAB GI: s/nd/nt : Urine clear, yellow from nephrostomy, site without erythema or purulence Extremities: Full ROM, baseline full strength Lines: PIV Temp: [36.4 ??C (97.5 ??F)-36.8 ??C (98.2 ??F)] Heart Rate: [54-63] Resp: [16-17] BP: (117-172)/(70-81) SpO2: [93 %-97 %] I/O last 3 completed shifts: In: 4400 [P.O.:3830; IV Piggyback:570] Out: 5150 [Other:5150] Recent Labs 02/05/16 0355 02/04/16 0438 02/03/16 0502 WBC 8.4 7.1 6.8 HGB 13.5* 14.0 13.9 HCT 38.7* 40.3 39.8* PLATELET 215 198 194 Recent Labs 02/05/16 0355 02/04/16 0438 02/03/16 0502 NA 140 141 140 K 3.8 4.2 3.6 CL 103 102 102 CO2 26 23 24 BUN 12 12 13 CREATININE 1.36 1.32 1.23 GLUCOSE 135 144 142 CALCIUM 9.1 9.6 9.4 MAGNESIUM 0.57* 0.61* 0.54* PHOS 2.9 2.9 2.6 Assessment for today: Ethel Akins is a 65 y.o. male with a history of DDKT and transplant ureteral stricture s/p ureteronephrostomy tube placement, admitted with coag neg staph bacteremia, likely UTI from stent, which has now been replaced. IR secured nephrostomy tube with clip and adhesive. He is otherwise doing very well today. Plan for today: - Continue vanc per ID, goal trough 10-15 - Keep nephroureterostomy to gravity per urology - Discuss OP plan with ID today - Discuss F/U appt with Urology today - Discharge today John Keyes MD 02/05/2016 Associated attestation - Que Amaro MD - 02/05/2016 2:25 PM EDT I have seen the patient and reviewed the resident's above history and I agree with the details as written. The assessment and plan were formulated in discussion with me and I agree with them as documented. Stable, normal creatinine level. Will discharge with NU tube to IN as per Urology recommendations. Will plan for him to cap the NU tube at home 24 hours prior to his followup visits with our team andthe Urology team next week. Outpt vancomycin is arranged and the orders are placed. Greatly appreciate the assistance of the Urology and ID teams. Reviewed his immunosuppression and adjusted as follows: Prograf 07/06, will be discharged on this dose Cellcept 250 mg po bid, will be discharged on this dose D/C home today. 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 Antibiotics: Vancomycin (01/29) TMP/SMX (01/29) Valganciclovir (01/29) S/P Pip/Tazo 24 hour events/Subjective: MIRIAM Blood cultures from 02/02 NGTD; last positive blood cultures 01/31 Feels well, no new or acute symptoms Site around nephroureterostomy tube a bit tender since exchange (01/31), though no worse. He did catch the line earlier this morning and it pulled a bit, causing more pain (but not that bad). Currently awaiting IR assessment. Denies CP, SOB, cough, abd pain, n/v, limb pain, rash. Tolerating diet, moving bowels, no diarrhea. PICC placed today Physical Exam: Last value Range last 48 hrs Temperature Temp: 36.6 ??C (97.9 ??F) Temp: [35.7 ??C (96.3 ??F)-37.4 ??C (99.3 ??F)] Heart Rate Heart Rate: 56 Heart Rate: [56-108] Blood Pressure BP: 136/64 BP: (129-145)/(64-92) Respiratory Rate Resp: 16 Resp: [16-22] SpO2 SpO2: 94 % SpO2: [90 %-98 %] General: Pleasant, NAD Cardiac: Normal rate/borderline bradycardia, regular rhythm, no m/g/r. ?? Respiratory: Nonlabored. CTA-B without wheezes/rhonchi/rales. Abd: NABS; soft, mild TTP around nephrostomy site, dressing not taken down as we are awaiting IR assessment of possible dislodged tube, non-distended, no obvious masses. Well healing lower abd scar, NU tube draining hematuria. Ext: WWP, no C/C/E Skin: Intact without rash; no lesions, no petechiae Lines: R PICC, CDI (02/03) Labs: Recent Labs 02/04/16 0438 WBC 7.1 RBC 4.48* HGB 14.0 HCT 40.3 MCV 90.0 MCH 31.3 MCHC 34.7 PLATELET 198 RDWCV 14.2 Micro: 09/16 Blood Cx: no growth 10/11 UCx: 10-49K CoNS, 10-49 sensitive Enterococcus spp 11/01 UCx: contaminant ?? 11/07 UCx: 10-49K sensitive Enterococcus spp 11/11 Blood Cx X 2: sensitive E. Faecalis ?? 11/11 UCx: sensitive Enterococcus 11/12, 11/13, 11/14, 11/15 Blood Cx: no gowth ?? 12/06 Blood Cx X 1: Klebsiella oxatoca with ESBL 12/07 Blood Cx X 2: Klebsiella oxatoca with ESBL 12/08, 12/09, 12/10 Blood Cx: no growth ?? 01/28 Blood Cx: Coagulase-negative Staph, resistant 01/29 Blood Cx: Coagulase-negative Staph, resistant 01/29 UCx: <1K CoNS 01/30 Blood Cx: no growth 01/31 Blood Cx: Coagulase-negative Staph, resistant 02/01 Blood Cx: no growth 02/01 Urine Cx, nephrostomy: no growth 02/02 Blood Cx: no growth Imaging: None new 01/29 CXR: No pneumonia or other acute cardiopulmonary process. ?? MANAGER ORGANIZATIONAL: 12/29 CT a/p WO: 1. Transplant kidney in the left lower quadrant with nephrostomy tube in place and air within the renal collecting system. No renal parenchymal or collecting system calculi detected. 2. Mildly hyperdense 5 mm focus within the gallbladder neck suspicious for gallstone. Consider further characterization with right upper quadrant ultrasound. ?? 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 Resistant CoNS is growing on culture of urinary andblood samples. He is now s/p IR LLQ transplant ureteroplasty and nephroureterostomy tube exchange on 01/31; most recent positive blood culture is from 01/31. Will continue to follow culture data from 02/01 and 02/02 samples. Should they fail to clear, would recommend renal ultrasound searching for occult source of infection. He has in the meantime been managed with Vancomycin (trough goal 10-15) for this resistent CoNS bacteremia. OPAT instructions as below. ?? Recommendations: - Coagulase negative staph bacteremia, secondary to urinary infection - No antibiotic allergies - Recommend Vancomycin 1.5g Q24H IV, please get first trough Monday 02/05 just prior to dose - Recommend troughs Q3 days thereafter, with goal 10-15 - Antibiotic duration likely 3 weeks (02/01 - 02/22). - ID to follow up in clinic, prior finishing antibiotics - Labs: weekly CBC, CMP, and troughs every 3 days after 02/05 Discussed with team. Consult service will continue to follow patient. X Recommendations are above, please page if further consultation required. Sharmaine Eden MD Infectious Disease Fellow Pager #[phone] I have seen the patient and reviewed the above history and physical and I agree with the details aswritten. The assessment and plan were formulated in discussion with me and I agree with them as documented. 65M renal transplant with CONS urosepsis with nephroureteral tube in place. Feeling better, although has infiltration of PIV on right forearm that is painful, hot and red - applying heat packs. RUE PICC looks good. Nephrostomy tube with securement device in place but no dressing covering insertion site. Mild tenderness around tube but not over kidney. Blood cultures negative as of 02/01. Will need3-4 weeks of IV antibiotics. Unclear what the plan is for his nephroureteral tube and could be nidus for recurrent infection although was exchanged during this episode of infection. Will need to monitor closely for any recurrent symptoms. We will arrange OPAT follow up. Ramez Serrano DO, MPH Infectious Disease * John Keyes MD - 02/04/2016 6:51 AM EDT Transplant Progress Note Ethel Akins is a 65 y.o. 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 He was admitted to the Transplant Surgery service for fever and cloudy urine that began on 01/29/16, s/p DDKT and nephrostomy tube placement. 24HR events: - Afebrile for 48 hours - Stable vitals - Admission blood cxs with coagulase negative staff, sensitivities returned (sensitive to clindamycin, erythromycin, vanc, and tetracycline) - Vanco trough 10.8 - PO intake 2.6L - Nephrostomy tube sutures torn out after patient stepped on tube while exiting shower this morning Physical Examination: Gen: NAD Neuro: A+Ox3, speech fluent and appropriate Cardio: RRR Pulm: CTAB GI: s/nd/nt : Urine clear, yellow from nephrostomy, site without erythema or purulence Extremities: Full ROM, baseline full strength Lines: PIV Temp: [35.7 ??C (96.3 ??F)-37.2 ??C (99 ??F)] Heart Rate: [56-57] Resp: [16-22] BP: (129-136)/(64-70) SpO2: [91 %-98 %] I/O last 3 completed shifts: In: 4897 [P.O.:3350; I.V.:1262; IV Piggyback:285] Out: 7000 [Urine:4450; Other:2550] Recent Labs 02/04/16 0438 02/03/16 0502 02/02/16 0809 WBC 7.1 6.8 6.6 HGB 14.0 13.9 15.2 HCT 40.3 39.8* 42.2 PLATELET 198 194 202 Recent Labs 02/04/16 0438 02/03/16 0502 02/02/16 0443 NA 141 140 140 K 4.2 3.6 3.7 CL 102 102 102 CO2 23 24 26 BUN 12 13 13 CREATININE 1.32 1.23 1.38 GLUCOSE 144 142 138 CALCIUM 9.6 9.4 9.2 MAGNESIUM 0.61* 0.54* 0.62* PHOS 2.9 2.6 2.8 Assessment for today: Ethel Akins is a 65 y.o. male with a history of DDKT and transplant ureteral stricture s/p ureteronephrostomy tube placement, admitted with coag neg staph bacteremia, likely UTI from stent, which has now been replaced. IR was called regarding nephrostomy tube sutures, and they recommended watching for leakage around the site, and placing an adhesive patch on the site to prevent movement of tube. Plan for today: -Place PICC today -Continue vanc per ID, goal trough 10-15 -Keep nephroureterostomy to gravity per urology - F/U Prograf level today - Discuss OP plan with ID today - F/U IR re: capping tube - Discharge pending discussion with IR and ID John Keyes MD 02/04/2016 Associated attestation - Que Amaro MD - 02/04/2016 4:58 PM EDT I have seen the patient and reviewed the resident's above history and I agree with the details as written. The assessment and plan were formulated in discussion with me and I agree with them as documented. Mr. Akins is doing well today and has normal renal allograft function. NU tube remains externalized to SD. We discussed with the Urology team and will plan to leave open to SD on discharge. He hasbeen afebrile over the last 24 hours and has had no rigors. Blood cultures on 02/01 and 02/02 as wellas urine culture on 02/[address] is normal. Reviewed and adjusted immunosuppression as follows: Prograf 07/06, trough level 9.1 today. No adjustments Cellcept 250 mg po bid Stable, floor status. PICC line today, working on outpatient antibiotic infusions and await final recs re: duration of antibiotic course from ID team. Prepared for dc home when all of these are arranged. * Epifanio Torre MD - 02/03/2016 10:16 AM EDT Transplant Progress Note Ethel Akins is a 65 y.o. 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 He was admitted to the Transplant Surgery service for fever and cloudy urine that began on 01/29/16, s/p DDKT and nephrostomy tube placement. 24HR events: - Afebrile for 72 hours - No further positive blood cxs (admission cxs x2 positive, and 01/31 cx positive) - Cr continues to improve - Urology wishes to keep drain externalized until antibiotic course is finished; final duration of abx TBD based on subsequent cxs being finalized; ID following Physical Examination: Gen: NAD Neuro: A+Ox3, speech fluent and appropriate Cardio: RRR Pulm: CTAB GI: s/nd/nt : Urine clear, yellow from nephrostomy, site without erythema or purulence Extremities: Full ROM, baseline full strength Lines: PIV Temp: [36.5 ??C (97.7 ??F)-37.4 ??C (99.3 ??F)] Heart Rate: [57-108] Resp: [16-20] BP: (136-145)/(67-92) SpO2: [90 %-97 %] I/O last 3 completed shifts: In: 4280 [P.O.:1950; I.V.:2080; IV Piggyback:250] Out: 6990 [Urine:6990] Recent Labs 02/03/16 0502 02/02/16 0809 02/01/16 0535 WBC 6.8 6.6 6.8 HGB 13.9 15.2 14.3 HCT 39.8* 42.2 41.3 PLATELET 194 202 161 PT -- -- 13.5 INR -- -- 1.0 PTT -- -- 29 Recent Labs 02/03/16 0502 02/02/16 0443 02/01/16 0535 NA 140 140 142 K 3.6 3.7 3.6 CL 102 102 103 CO2 24 26 26 BUN 13 13 9* CREATININE 1.23 1.38 1.42 GLUCOSE 142 138 138 CALCIUM 9.4 9.2 9.0 MAGNESIUM 0.54* 0.62* 0.70 PHOS 2.6 2.8 2.7 Assessment for today: Ethel Akins is a 65 y.o. male with a history of DDKT and transplant ureteral stricture s/p ureteronephrostomy tube placement, admitted with coag neg staph bacteremia, likely UTI from stent, which has now been replaced. Plan for today: -Discontinue IVF. Will need to take in at least 2.5 Liters po if he is to be safely discharged tomorrow. -Continue daily blood cx; if continue to be positive will likely need U/S to rule out perinephric abscess and echo to r/o endocarditis -PICC tomorrow if afebrile and no further positive cultures -Continue vanc per ID, goal trough 10-15 -Keep nephroureterostomy to gravity per urology until abx are finished -Possible discharge tomorrow on IV abx at out infusion center EPIFANIO TORRE MD Associated attestation - Que Amaro MD - 02/03/2016 12:32 PM EDT I have seen the patient and reviewed the resident's above history and I agree with the details as written. The assessment and plan were formulated in discussion with me and I agree with them as documented. Mr. Akins looks very well today. Most recent blood cultures remain negative and he has been afebrile over the last 24 hours. No rigors. The Urology team recommended that the NU tube remain externalized to SD upon discharge for the recent infectious issues that appear to be urologic in origin. Agree with this recommendation. My concern yesterday was with internalization and inability to examinehis graft function within ~ 24 - 48 hours following internalization of the tube. He has no pain over the graft site and the urine draining through the tube is clear without blood or purulence. I reviewed and adjusted his immunosuppression as follows: Prograf 07/06, trough level tomorrow Cellcept 250 mg po bid Stable, floor status. Will plan for PICC line tomorrow. Checking repeat vanco trough this evening to determine discharge vancomycin dose in light of improved graft function over the last several days. * Urbano Li RN - 02/02/2016 12:40 PM EDT Infiltration/Extravasation Scale Instructions: Strikeout non-applicable grades, highlight the grade which applies to this patient byBOLD lettering and COLOR RED Edema 1 to 6 inches (2.5 to 15 cm) in any direction Or 6 -25% of limb affected With pain , swollen Infiltration harm % for this extremity Based on measurement calculation ( greatest measurement X divided by length of extremity multipliedby 100=%) Specific details of infiltration/extravasation Medication infiltrated vanco Infiltration of any amount of irritant, x___vesicant Include:Right or left extremity? 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 Medicated treatment given per policy/ order hyaluronidase ( name of medication) Plan for continued monitoring of infiltration/extravasation Name of MD contacted pepe (enter date and time here) Name of RN contacted nick STANLEY verbalized understanding to rest and elevate extremity per pt comfort(enter date and time here) Name of Pharmacist if consulted (enter date and time here) Name of Plastics MD ( if consulted) (enter date and time here) or NA No significant impression from picture, pt's skin is very tanned and does not lend a good picture for comparison (Mandatory photo for infiltrations/ extravasations scoring a stage 2 or greater, but recommended for stage 1)( include measuring tape and identifier in the photo) SENIOR PROJECT ENGINEER CARING FOR THIS PATIENT WILL CONTINUE TO MONITOR AND WILL ASSUME CARE, VASCULAR ACCESS WILL NOT FOLLOW THIS EVENT AT THE SIGNING OF THIS NOTE. * Epifanio Torre MD - 02/02/2016 11:18 AM EDT Transplant Progress Note Ethel Akins is a 65 y.o. 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 He was admitted to the Transplant Surgery service for fever and cloudy urine that began on 01/29/16, s/p DDKT and nephrostomy tube placement. 24HR events: - Afebrile for 48 hours - Admission blood cxs with coagulase negative staff, sensitivities returned (sensitive to clindamycin, erythromycin, vanc, and tetracycline) - ID consulted, zosyn stopped, vanc continued; goal trough 10-15; will likely be discharged on vanc - Blood cx x2 from 01/30 NGTD but blood cx from 02/01/16 with Gram positive cocci; spoke to ID fellow, said to hold off on further imaging for now - Nephroureterostomy exchanged for 10.2 Lib[place] tube (upsized); mid-ureteral stricture dilated to 7 mm Physical Examination: Gen: NAD Neuro: A+Ox3, speech fluent and appropriate Cardio: RRR Pulm: CTAB GI: s/nd/nt : Urine clear, yellow from nephrostomy, site without erythema or purulence Extremities: Full ROM, baseline full strength Lines: PIV Temp: [36.2 ??C (97.1 ??F)-37.2 ??C (99 ??F)] Heart Rate: [48-58] Resp: [16-20] BP: (114-156)/(40-69) SpO2: [91 %-97 %] I/O last 3 completed shifts: In: 3399 [P.O.:1420; I.V.:1179; IV Piggyback:800] Out: 6735 [Urine:6735] Recent Labs 02/02/16 0809 02/01/16 0535 01/31/16 0012 WBC 6.6 6.8 6.4 HGB 15.2 14.3 14.1 HCT 42.2 41.3 39.8* PLATELET 202 161 140* PT -- 13.5 13.8 INR -- 1.0 1.0 PTT -- 29 30 Recent Labs 02/02/16 0443 02/01/16 0535 01/31/16 0012 NA 140 142 136 K 3.7 3.6 3.3* CL 102 103 99 CO2 26 26 23 BUN 13 9* 14 CREATININE 1.38 1.42 1.55* GLUCOSE 138 138 189 CALCIUM 9.2 9.0 8.6 MAGNESIUM 0.62* 0.70 0.65* PHOS 2.8 2.7 2.2* Assessment for today: Ethel Akisn is a 65 y.o. male with a history of DDKT and transplant ureteral stricture s/p ureteronephrostomy tube placement, admitted with coag neg staph bacteremia, likely UTI from stent, which has now been replaced. Plan for today: -IVF hydration NS 100 cc/hr and encourage po fluid intake -Will hold off on PICC due to positive blood cxs. Continue daily blood cx; if continue to be positive will likely need U/S to rule out perinephric abscess and echo to r/o endocarditis -Continue vanc per ID, goal trough 10-15 -Daily blood cultures -Keep nephroureterostomy to gravity per urology EPIFANIO TORRE MD Associated attestation - Que Amaro MD - 02/02/2016 12:47 PM EDT I have seen the patient and reviewed the resident's above history and I agree with the details as written. The assessment and plan were formulated in discussion with me and I agree with them as documented. Ureteral stricture dilated and NU tube upsized without issues yesterday. Cr level is at 1.3 today, a low in recent months. Urine volume has been adequate. No blood in the NU tube drainage bag and he remains externalized to gravity drainage. Will continue IVF today to catch up from NPO status and urine volume over the last 24 hours. I encouraged him to increase his PO intake today. Reviewed and adjusted immunosuppression as follows: Prograf 07/06, trough level on Thursday Cellcept 250 mg po bid, no adjustment today Stable, floor status. Will discuss internalization of the NU tube tomorrow with followup creatininelevel on Thursday with team tomorrow. * Prisca Carrington MSW - 02/01/2016 2:32 PM EDT Office of Care Management Social Work Note Relevant Information: Worker was paged by [facility] as family was requesting a notary. Worker checked with the unit who said that the family needed a notary in order to finalize the sale of a house. Worker was told that this needed to be done by 02-11-16. As this is not drafted by an trademark attorney, worker is unable to notarize the document. This information will be conveyed to the family as well as DEDE Dukes. DEDE NGUYEN Medical Art Therapist for ICU's and ISCU Pager [phone] * Jonh Keyes MD - 02/01/2016 1:32 PM EDT Brief Note 02/01/2016 1:[address] Prakash Che re: Urology plan for Ethel Akins. Urology will continue to follow with f/u appointment to be scheduled. Tentatively, Mr. Akins will continue to receive nephrostogram with balloon dilation to dilate stricture, which could possibly mitigate need for uroplasty with Urology. If balloon dilation is ineffective, Urology will reassess and create plan for intervention if indicated at that time. John Keyes MD 02/01/2016 * John Keyes MD - 02/01/2016 1:00 PM EDT Transplant Progress Note Ethel Akins is a 65 y.o. 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 He was admitted to the Transplant Surgery service for fever and cloudy urine that began on 01/29/16, s/p DDKT and nephrostomy tube placement. 24HR events: - 2/2 blood cx returned coag negative staph - Patient remained afebrile throughout the night - Mg and Phosphorus improved to WNL - Cr 1.42 Physical Examination: Gen: NAD Neuro: A+Ox3, speech fluent and appropriate Cardio: RRR Pulm: CTAB GI: s/nd/nt : Moran out, urine clear, yellow from nephrostomy Extremities: Full ROM, baseline full strength Lines: PIV for IVF Temp: [36.2 ??C (97.1 ??F)-37.6 ??C (99.7 ??F)] Heart Rate: [48-65] Resp: [14-22] BP: (96-180)/(40-99) SpO2: [93 %-99 %] I/O last 3 completed shifts: In: 6881 [P.O.:1582; I.V.:4749; IV Piggyback:550] Out: 9335 [Urine:9335] Recent Labs 02/01/16 0535 01/31/16 0012 01/30/16 0742 01/29/16 2337 WBC 6.8 6.4 6.9 7.5 HGB 14.3 14.1 13.9 14.4 HCT 41.3 39.8* 40.6 41.6 PLATELET 161 140* 145 173 PT 13.5 13.8 -- -- INR 1.0 1.0 -- -- PTT 29 30 -- -- Recent Labs 02/01/16 0535 01/31/16 0012 01/30/16 0742 01/29/16 2337 NA 142 136 137 135 K 3.6 3.3* 3.7 3.8 CL 103 99 99 96* CO2 26 23 24 23 BUN 9* 14 17 18 CREATININE 1.42 1.55* 1.67* 1.77* GLUCOSE 138 189 163 167 CALCIUM 9.0 8.6 8.8 9.3 MAGNESIUM 0.70 0.65* 0.63* 0.39* PHOS 2.7 2.2* 2.3* 2.1* Assessment for today: Ethel Akins is a 65 y.o. male with positive coagulase negative staphylococcus blood cultures. He remained afebrile, his Mg and phosphorus normalized, his Cr has decreased to 1.42 from 1.55, and he is scheduled for nephrostogram today with IR. Total bilirubin has normalized, and his AST and ALT have remained stable. Plan for today: 1. Neuro: Close monitoring. Watch for AMS 2. CVS: Keep on OP regimen 3. Resp: IS, ORA 4. GI: NPO today for IR nephrostogram. 5. Hem: Hold off anticoagulation. SCDs. Coagulation studies WNL. Repeat tomorrow AM 6. ID: CMV PCR, valgancyclovir, Bactrim single strength. Continue atbx. F/U culture sensitivities, CMV PCR, and BKV quantitative results. 7. : Moran out, monitor I/Os 8. Transplant: Prograf level pending 9. FEK: Keep NS running at 100ml/hr. Monitor lytes. Repeat BMP, Mg, Phosphorus tomorrow AM 10. Nephrostogram with IR today 11. C/s to Transplant ID for PICC line consideration 12. F/u with Urology re: nephrostogram findings John Keyes MD [id number] Associated attestation - Que Amaro MD - 02/01/2016 6:41 PM EDT I have seen the patient and reviewed the resident's above history and I agree with the details as written. The assessment and plan were formulated in discussion with me and I agree with them as documented. * Hebert Moreira - 02/01/2016 9:55 AM EDT VIR PRE-PROCEDURE VIR NOTE ADDENDUM Name: Ethel Akins Date of : 1950 Procedure: Left nephrostogram (antegrade) and possible nephroureteral stent upgrade. Physical Examination: Chest: clear to auscultation, no wheezes, Heart: normal rate, regular rhythm, Abdomen: soft, nontender, nondistended, ASA 3 - Patient with moderate systemic disease with functional limitations Mallampati II (soft palate, uvula, fauces visible) The planned procedure, its benefits/risks and alternatives were discussed with the patient and consent was given. Hebertolivia Moreira * Jhon Soni RN - 02/01/2016 6:45 AM EDT ANGIO NURSING DATABASE Name: ETHEL AKINS Date of : 1950 AGE 65 y.o. Address: [address] [place] [id number] (home) [phone] (work) Mobile: Telephone Information: Referring Provider: No ref. provider found REASON FOR VISIT: Left nephrostogram. Per Urology, please pull back stent, shoot antegrade nephrostogram to characterize stricture, and upsize the nephroureterostomy as indicated. Please contact MD Myles with urology if any questions. Thanks. No Known Allergies Pertinent PMH: Patient Active [...] (urinary tract infection) N39.0 ??? Fever R50.9 Pertinent PSH: Past Surgical History Procedure Laterality Date ??? Pro anastomosis, av, any site Left 05/09/2015 AV FISTULA CREATION, DIRECT HEMODIALYSIS, ANY SITE, EG ASHWINI FISTULA UPPER EXTREMITY performed by Que Amaro MD at [facility] OR ??? Pro transplantation of kidney N/A 09/16/2015 @KIDNEY TRANSPLANT, WITHOUT RECIPIENT NEPHRECTOMY performed by Franko Larkin MD at [facility] OR ??? Pro transplant, prep cadaver renal graft N/A 09/16/2015 @PREPARATION CADAVERIC RENAL ALLOGRAFT performed by Frakno Larkin MD at [facility] OR ??? N/A 09/16/2015 ORGAN ACQUISITION RENAL, CADAVERIC performed by Franko Larkin MD at [facility] OR Date/Procedure? Med's given/comments 01/08/2015: Tunneled HD [...] 2 mg IV, fentanyl 100 mcg IV ? Laboratory Results: Lab Results Component Value Date INR 1.0 02/01/2016 Lab Results Component Value Date CREATININE 1.42 02/01/2016 Lab Results Component Value Date K 3.6 02/01/2016 Lab Results Component Value Date PLATELET 161 02/01/2016 Medications: Prior to Admission medications Medication Sig Start Date End Date Taking? Authorizing Provider omeprazole (PRILOSEC) 20 mg Capsule, Delayed Release(E.C.) Take 20 mg by mouth daily as needed. PROVIDER, HISTORICAL mycophenolate (CELLCEPT) 250 mg Capsule Take 1 capsule by mouth 2 times daily. 01/03/16 Epifanio Torre MD sulfamethoxazole-trimethoprim (BACTRIM;SEPTRA) 400-80 mg Tablet Take 1 tablet by mouth every other day for 364 days. 01/03/16 01/01/17 Epifanio Torre MD potassium phosphate, monobasic, (K-PHOS) 500 mg Tablet, Soluble Take 2 tablets by mouth 2 times daily. 12/13/15 Joanie Sim MD valGANciclovir (VALCYTE) 450 mg Tablet Take 450 mg by mouth daily. PROVIDER, HISTORICAL Magnesium Gluconate 27 mg (500 mg) Tablet [...] every 4 hours as needed for Pain. 09/20/15 Dyan Sears MD DILTiazem (DILTIAZEM CD) 120 mg Capsule, Sust. Release 24 hr Take 1 capsule by mouth daily. 09/17/15Que chavis MD clopidogrel (PLAVIX) 75 mg Tablet Take 1 tablet by mouth daily. 05/12/15 Kendrick Del Castillo MD * John Keyes MD - 01/31/2016 7:07 AM EDT Transplant Progress Note Ethel Akins is a 65 y.o. 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 He was admitted to the Transplant Surgery service for fever and cloudy urine that began on 01/29/16, s/p DDKT and nephrostomy tube placement. 24HR events: - Blood cx returned coag negative staph - Patient was febrile to 38.6, now 36.7 - Blood cx x2, and UA with reflex cx pending - On Vancomycin and Zosyn - Mg and Phosphorus still low - Prograf adjusted to 07/06 - Cellcept adjusted to 250 po bid Physical Examination: Gen: NAD Neuro: A+Ox3, speech fluent and appropriate Cardio: RRR Pulm: CTAB GI: s/nd/nt : Moran out, urine clear, yellow from nephrostomy Extremities: Full ROM, baseline full strength Lines: PIV for IVF Temp: [36.7 ??C (98.1 ??F)-38.6 ??C (101.5 ??F)] Heart Rate: -- Resp: [16] BP: (127-159)/(68-86) SpO2: [92 %-94 %] I/O last 3 completed shifts: In: 6414 [P.O.:1402; I.V.:4962; IV Piggyback:50] Out: 7700 [Urine:7700] Recent Labs 01/31/16 0012 01/30/16 0742 01/29/16 2337 WBC 6.4 6.9 7.5 HGB 14.1 13.9 14.4 HCT 39.8* 40.6 41.6 PLATELET 140* 145 173 PT 13.8 -- -- INR 1.0 -- -- PTT 30 -- -- Recent Labs 01/31/16 0012 01/30/16 0742 01/29/16 2337 NA 136 137 135 K 3.3* 3.7 3.8 CL 99 99 96* CO2 23 24 23 BUN 14 17 18 CREATININE 1.55* 1.67* 1.77* GLUCOSE 189 163 167 CALCIUM 8.6 8.8 9.3 MAGNESIUM 0.65* 0.63* 0.39* PHOS 2.2* 2.3* 2.1* Assessment for today: Ethel Akins is a 65 y.o. male with fevers, low Mg and phosphorus, and positive coagulase negative staphylococcus blood cultures. He is scheduled for nephrostogram today with IR. Total bilirubin has improved, and his AST and ALT have remained stable. Plan for today: 1. Neuro: Close monitoring. Watch for AMS 2. CVS: Keep on OP regimen 3. Resp: IS, ORA 4. GI: Regular diet today. Repeat LFTs tomorrow AM 5. Hem: Hold off anticoagulation. SCDs. Coagulation studies WNL. Repeat tomorrow AM 6. ID: CMV PCR, valgancyclovir, Bactrim single strength. Continue atbx. F/U culture sensitivities, CMV PCR, and BKV quantitative results. 7. : Moran out, monitor I/Os 8. Transplant: Prograf level 6.2 9. FEK: Keep NS running at 100ml/hr. Monitor lytes. Give 2g IV Mg, 15mmol IV KPhos, 10mEq KCl. Repeat BMP, Mg, Phosphorus tomorrow AM 10. IR has cancelled nephrostogram today John Keyes MD [id number] Associated attestation - Que Amaro MD - 01/31/2016 11:03 AM EDT I have seen the patient and reviewed the resident's above history and I agree with the details as written. The assessment and plan were formulated in discussion with me and I agree with them as documented. Mr. Akins continued to spike fevers overnight last night and we found 2/2 blood culture bottles positive for GPC in clusters. Await full speciation and sensitivities. This organism appears to be growing out from the urine culture in low colony counts as well. He is hemodynamically stable with noevidence of hypotension. He feels reasonably well today and has been ambulating around the hallways. He tells me that he feels better than he did yesterday. We will send a repeat set of blood cultures today to confirm that he is clearing on the empiric vancomycin and Zosyn. Await final culture results to modify his abx regimen. His renal allograft function continues to improve. Cr is 1.5 today. We will hold on the planned IR procedure today in the setting of the bacteremia. I reviewed and adjusted his immunosuppression therapy as follows: Prograf level was 6.2 yesterday on 07/06, no adjustments indicated Cellcept 250 mg po bid, no adjustment Continue antibiotics and repeat a set of blood cultures today to confirm that they have cleared. Continue to closely follow this immunosuppressed patient in the setting of bacteremia. Clinically stable and remains appropriate for floor status. * Malina Phelan RN - 01/30/2016 4:21 PM EDT DEVORA Phelan, MSN, RN P: [phone] Service: Transplant Expand All Collapse All Office of Care Management ?? 01/30/16 Ethel Akins [id number] Date of : 1950 ? Admission Diagnosis: Renal failure [N19), presents this hospitalization with fever of unknown origin. ?? Past Medical History Past Medical History?? Diagnosis?? Date? Type 2 diabetes mellitus? HTN (hypertension)? ESRD (end stage renal disease)? Microhematuria? Colon polyp? GERD (gastroesophageal reflux disease)? Back pain? CVA (cerebral vascular accident)? Per report but no deficits? Patient Active Problem List?? Diagnosis?? Code? DM type 2 (diabetes mellitus, type 2)?? E11.9? Hypertension?? I10? DJD (degenerative joint disease)?? M19.90? Hematuria?? R31.9? ESRD (end stage renal disease)?? N18.6? HCV (hepatitis C virus)?? B19.20? CGN (chronic glomerulonephritis)?? N03.9? Chronic kidney disease, stage V?? N18.5? Essential hypertension?? I10? Hepatitis C virus infection?? B19.20? Renal failure?? N19? Social History Narrative None on file ?? Lives in [place], [place] in own home w/ spouse Mara and 26 y.o. Son. ? Code Status: Full. Advance Directives:none in [facility]. Admission Status: written and signed by attending as IPI. ?? Insurance: Medicare A,B and D through [employer] and BC/BS. Pharmacy: [address], [place] ?? Baseline Functional Status: self reports no functional deficits. ?? Current Home Equipment/Services: none. Current Functional Status/Mobility: Independent Anticipated Barriers to Discharge: none. ?? Anticipated Discharge Date: uncertain. Anticipated Discharge Place: home. Anticipated Discharge Needs: Uncertain at this ?? Transportation Needs: family will transport pt home. ?? CM will continue to monitor progress and assist with changing needs. ? Malina Phelan RN, MSN Vacuum Pl[employer] Forming Machine OperatorBasket Turner of Care Management Pager [phone] Phone: [phone] * John Keyes MD - 01/30/2016 8:50 AM EDT Transplant Progress Note Ethel Akins is a 65 y.o. 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 He was admitted to the Transplant Surgery service for fever of unknown origin in the setting of multiple UTIs s/p DDKT and nephrostomy tube placement. 24HR events: - Direct admit to Transplant from home - Patient has been febrile to 39.4 C, now 99.7 - Simmons cultures started - On Vancomycin and Zosyn - Mg and Phosphorus low Physical Examination: Gen: NAD Neuro: A+Ox3, speech fluent and appropriate Cardio: RRR Pulm: CTAB GI: s/nd/nt : Moran in, urine clear, yellow Extremities: Full ROM, baseline full strength Lines: PIV for IVF Temp: [37.5 ??C (99.5 ??F)-39.4 ??C (102.9 ??F)] Heart Rate: [119] Resp: [16-18] BP: (125-151)/(70-101) SpO2: [93 %-94 %] I/O last 3 completed shifts: In: 1974 [I.V.:1924; IV Piggyback:50] Out: 2124 [Urine:2124] Recent Labs 01/30/16 0742 01/29/16 2337 WBC 6.9 7.5 HGB 13.9 14.4 HCT 40.6 41.6 PLATELET 145 173 Recent Labs 01/30/16 0742 01/29/16 2337 NA 137 135 K 3.7 3.8 CL 99 96* CO2 24 23 BUN 17 18 CREATININE 1.67* 1.77* GLUCOSE 163 167 CALCIUM 8.8 9.3 MAGNESIUM 0.63* 0.39* PHOS 2.3* 2.1* Assessment for today: Ethel Akins is a 65 y.o. male with fevers concerning for an infective process related to his urinary tract. This is concerning given his immunosuppression, stent, and nephrostomy tube. He is scheduled for nephrostogram tomorrow (01/30) with IR. His Mg and Phosphorus are low. Plan for today: 1. Neuro: Close monitoring. Watch for AMS 2. CVS: Keep on OP regimen 3. Resp: IS, ORA 4. GI: Regular diet today, NPO at midnight for nephrostogram tomorrow. Repeat LFTs tomorrow AM 5. Hem: Hold off anticoagulation. SCDs. Repeat INR, CBC, Type and Screen tomorrow AM 6. ID: CMV PCR, valgancyclovir, Bactrim single strength, F/U pending urine cx 7. : Moran in, monitor I/Os 8. Transplant: Prograf level pending 9. FEK: Keep NS running at 150ml/hr. Monitor lytes. 2g IV Mg, 10mmol IV KPhos, Repeat BMP, Mg, Phosphorus tomorrow AM 10. C/S - Urology consult for evaluation of infective process and guidance with plan for nephrostogram John Keyes MD [id number] Associated attestation - Que Amaro MD - 01/30/2016 12:45 PM EDT I have seen the patient and reviewed the resident's above history and I agree with the details as written. The assessment and plan were formulated in discussion with me and I agree with them as documented. Mr. Akins was admitted overnight after calling our office with fevers and cloudy urine output that began yesterday. He had a temperature in the 39C range on admission. This occurred in the settingof a UA that showed 11 WBC. He denies dysuria though he has had very small frequent urine voids andcomplains of frequency. No hematuria. We externalized the NU tube and placed it to gravity overnight and started empiric vancomycin and Zosyn coverage. Cultures were sent. Cr level was down to 1.7 onadmission from 2.1 at his last clinic visit. There is no suggestion that the tube was obstructed nor that it was not properly draining/deompressing the allograft. Cr this am is down to 1.6 and he is making an appropriate volume of urine. He defervesced overnight and has not had another fever since admission. He is hemodynamically stable without evidence of hypotension. I reviewed and adjusted his immunosuppression as follows: Prograf 07/06 (home dose), level pending from this am Cellcept 250 mg po bid - his BK test was negative this month and I continued this medication. Continue empiric abx and await cultures. Will discuss his admission with the IR team and plan to keep his scheduled nephrostogram and attempt at NU upsize +/- dilation planned for tomorrow. Will notify the Urology team that he has been admitted since they have been following this issue with our team. Stable, floor status. documented in this encounter H&P Notes * Yessica De La Vega MD - 01/29/2016 11:38 PM EDT Transplant Surgery Admission Note CC: Fever Active Hospital Problems Diagnosis ??? Fever ??? HCV (hepatitis C virus) ??? DM type 2 (diabetes mellitus, type 2) ??? Hypertension Resolved Hospital Problems Diagnosis Date Resolved No resolved problems to display. Active Non-Hospital Problems Diagnosis ??? UTI (urinary tract infection) ??? RAY (acute kidney injury) ??? Kidney transplant infection ??? Renal failure ??? Chronic kidney disease, stage V ??? ESRD (end stage renal disease) ??? Hepatitis C virus infection ??? Essential hypertension ??? CGN (chronic glomerulonephritis) ??? DJD (degenerative joint disease) ??? Hematuria HPI: Ethel Akins is a 65 y.o. male, with a history of donor kidney transplant from a HCV positive donor in September 2015. His recovery has been complicated by complicated UTI, bacteremia, and fluid retention all requiring hospitalizations. He states that he was feeling fine until this morning when he just didn't feel right and his noted a fever of 101.9F. He denies abdominal pain, chest pain, and shortness of breath. He was directly admitted to [facility] for further work-up and treatment. PMH/PSH: Past Medical History Diagnosis Date ??? [...] EXTREMITY performed by Que Amaro MD at [facility] OR ??? Pro transplantation of kidney N/A 09/16/2015 @KIDNEY TRANSPLANT, WITHOUT RECIPIENT NEPHRECTOMY performed by Franko Larkin MD at [facility] OR ??? Pro transplant, prep cadaver renal graft N/A 09/16/2015 @PREPARATION CADAVERIC RENAL ALLOGRAFT performed by Franko Larkin MD at [facility] OR ??? N/A 09/16/2015 ORGAN ACQUISITION RENAL, CADAVERIC performed by Franko Larkin MD at [facility] OR MEDICATIONS: No current facility-administered medications on file prior to encounter. Current Outpatient Prescriptions on File Prior to Encounter Medication Sig Dispense Refill ??? mycophenolate (CELLCEPT) 250 mg Capsule Take 1 capsule by mouth 2 times daily. ??? sulfamethoxazole-trimethoprim (BACTRIM;SEPTRA) 400-80 mg Tablet Take 1 tablet by mouth every other day for 364 days. 15 tablet 11 ??? potassium phosphate, monobasic, (K-PHOS) 500 mg Tablet, Soluble Take 2 tablets by mouth 2 timesdaily. 1 tablet 0 ??? valGANciclovir (VALCYTE) 450 mg Tablet Take 450 mg by mouth daily. ??? Magnesium Gluconate [...] tablet by mouth daily. 30 tablet 0 ALLERGIES: No Known Allergies FAMILY HISTORY: Denies history of bleeding or clotting disorders. Denies history of reactions to anesthesia. No family history on file. SOCIAL HISTORY: Social History Social History ??? Marital status: [...] point review of system otherwise negative except per HPI. PHYSICAL EXAM: Temp: [39.4 ??C (102.9 ??F)] Heart Rate: -- Resp: [18] BP: (151)/(101) SpO2: [93 %] GA - Appears uncomfortable, resting in bed, NAD HEENT - EOMI, mild scleral icterus CV - RRR Pulm - normal respirations, no use of accessory muscles, no stridor/audible wheezing Abd - soft, non-tender to palpation, not distended, no guarding or rebound. Nephrostomy tube in LLQwith no surrounding erythema. Ext - no cyanosis or edema Neuro - no focal deficits LABS: No results found for this or any previous visit (from the past 24 hour(s)). ASSESSMENT: This is a 65 y.o., male, with a history of donor kidney transplant from a HCV positive donor in September 2015 who presents with fever of unknown origin. We will be performing a full work-up to evaluate and treat. PLAN: - admit to Transplant Surgery team - acquire full infectious work-up (blood, urine, and sputum cultures) - follow-up LFT's, BMP, CBC, Mg, Phos, Tacrolimus level - bolus IVF w 1L NS then continue NS @ 150cc/hr - start vancomycin 1g IV and zosyn 3.375 IV (plan to adjust TID vs BID after GFR results) - tylenol 650mg q4 PRN - keep NPO for now - nephrostomy tube to gravity - resume home meds (levothyroxine 75mcg, tamsulosin 0.4mg, calcitriol 0.5mcg, diltiazem 120mg) Yessica De La Vega MD 01/29/2016 General Surgery, [id number] documented in this encounter Procedure Notes * Jesus Erickson RN - 02/04/2016 8:21 AM EDTAssociated Order(s): PLACE PICC LINE: CONTACT [...] to the planned procedure. Hand Hygiene: The head field hockey coach did perform hand hygiene prior to line insertion. Catheter type: PICC Lot number: [id number] Procedure Technique: Skin was prepped with chlorhexidine. [...] seldinger technique and fluoroscopy. Arm circumference was 32 cm at 2 cm above the insertion site. Final catheter length (with trimming): 42 cm Internal: 42 cm External: 0 cm Tip in SVC per Joel DILLON MD. The line was not placed over a guidewire. Post Procedure: Diagnosis: S/P KIDNEY TRANSPLANT Blood return noted on aspiration of line after placement confirmed. 3 mls of normal saline infused free flowing to gravity via PICC after insertion. Sterile dressing applied: CHG Impregnated Tegaderm. Findings: The patient did tolerate the procedure well. No Complications. Procedure Comments: OLD FISTULA, LEFT ARM JESUS ERICKSON RN 02/04/2016 documented in this encounter Nursing Notes * Jhon Soni RN - 02/01/2016 10:37 AM EDT To procedure room 3 via stretcher. Onto table supine. All monitors, O2, safety strap in place. Versed and fentanyl per protocol. documented in this encounter Miscellaneous Notes * Care Management - Tawana Cortes MSW - 02/04/2016 3:17 PM EDT DEDE informed by [facility] that patients PCP needs to co-sign orders for IV anti-biotics, dressing changes, Vanc levels. Patient will need a copy of the order to carry to PCP for signature prior to arriving for infusion suite. * Plan of Care - Bernarda Pedroza RN - 02/04/2016 1:57 PM EDT Problem: General Plan of Care Goal: Plan of Care Review Outcome: Ongoing (Interventions Implemented as Appropriate) 02/03/16 0416 02/04/16 0742 Plan of Care Review Plan of Care Outcome Status ongoing (interventions implemented as appropriate) -- Progress improving -- Coping/Psychosocial Response Interventions Plan of Care Reviewed with -- patient OUTCOME EVALUATION NOTE: OUTCOME SUMMARY: Yash states no pain, independent in room, this AM pt states he stepped on his nephrostomy tube and it pulled a little, MD aware, one suture is still in place. Urology MD up to assess and placed a different stabilizing device on pt, before he had dressing and tape. Prograf level drawn this AM, pt drinking, adequate UO from nephrostomy. Pt resting in room. Went down and had new PICC placed on right arm. PLAN MOVING FORWARD: Ambulation, rest, comfort INDIVIDUALIZED FALL PREVENTION INTERVENTIONS: Patient-specific fall risk factors per assessment: [current deficits]: Lines, Assistance [level of assistance required for transfers and ambulation]: independent Supervision [direct monitoring required during toileting and ADLs]: independent Surveillance [continuous indirect monitoring]: Purposeful rounding, call robles in reach Patient-specific fall prevention interventions for sensory deficits provided, if applicable: [X] Yes glasses CPG GOAL OUTCOME EVALUATION: Goal: Fall Prevention-Safe Patient Handling Outcome: Ongoing (Interventions Implemented as Appropriate) 02/04/16 0742 02/04/16 0815 02/04/16 1148 Safety Interventions Safety Precautions/Fall Reduction low bed;nonskid shoes/slippers when out of bed -- -- Musculoskeletal Interventions Activity/Level of Assistance -- independently -- Positioning -- -- HOB up 15 degrees;independent Muscle Strengthening activity/mobility promoted;mobility in bed promoted -- -- Self-Care Promotion independence encouraged while providing assistance -- -- Stephens Fall Risk History of Falling 0 -- -- Secondary Diagnosis 15 -- -- Ambulatory Aids 0 -- -- Intravenous Therapy/Heparin/Saline Lock 20 -- -- Gait/Transferring 0 -- -- Mental Status 0 -- -- Score 35 -- -- Activity and Safety Assistive Device -- None -- OTHER Stephens Fall Risk Med -- -- Goal: Infection Control Outcome: Ongoing (Interventions Implemented as Appropriate) 02/04/16 0742 Safety Interventions Isolation Precautions standard precautions maintained Infection Prevention rest/sleep promoted;promote handwashing;nutrition promoted;hydration promoted Coping/Psychosocial Response Interventions Counseling emotional support provided;goal setting facilitated Goal: Discharge Needs Assessment Outcome: Ongoing (Interventions Implemented as Appropriate) 02/01/16 0328 Discharge Needs Assessment Concerns to be Addressed no discharge needs identified Equipment Needed After Discharge none Living Environment Transportation Available car;family or friend will provide Self-Care Equipment Currently Used at Home none * Plan of Care - Jesus Erickson RN - 02/04/2016 9:05 AM EDT Problem: Health Knowledge, Opportunity for Enhanced (Adult, NICU, , Obstetrics, Pediatric) Goal: Knowledgeable about Health Subject/Topic Patient will demonstrate the desired outcomes. Outcome: Outcome (s) achieved Date Met: 02/04/16 Peripherally Inserted Central Catheter (PICC) Teaching Sheet Peripherally inserted central catheters ([id number]-[id number]) (PICC) are used when you need IV [...] midline catheter? PICC lines are used for computer terminal operator treatments. PICC lines may be used [...] can be set up via the nurse Vacuum Plastic Forming Machine Operator to help you. What are possible complications [...] Efficacy, Safety, Use, and Administration of [employer] 2005 * Plan of Care - Bernarda Pedroza RN - 02/03/2016 2:48 PM EDT Problem: General Plan of Care Goal: Plan of Care Review Outcome: Ongoing (Interventions Implemented as Appropriate) 02/03/16 0416 02/03/16 0749 Plan of Care Review Plan of Care Outcome Status ongoing (interventions implemented as appropriate) -- Progress improving -- Coping/Psychosocial Response Interventions Plan of Care Reviewed with -- patient OUTCOME EVALUATION NOTE: OUTCOME SUMMARY: Yash stated no pain, IV fluids stopped but pt encouraged to take in 2-2.5L before he can be discharged tomorrow. Nephrostomy working well, bladder scan orders D/C's. Pt sleeping most of the day, independent in room PLAN MOVING FORWARD: Increase fluids in INDIVIDUALIZED FALL PREVENTION INTERVENTIONS: Patient-specific fall risk factors per assessment: [current deficits]: lines Assistance [level of assistance required for transfers and ambulation]: independent Supervision [direct monitoring required during toileting and ADLs]: independent Surveillance [continuous indirect monitoring]: jamir Crum in reach, purposeful rounding Patient-specific fall prevention interventions for sensory deficits provided, if applicable: [X] Yes glasses CPG GOAL OUTCOME EVALUATION: Goal: Fall Prevention-Safe Patient Handling Outcome: Ongoing (Interventions Implemented as Appropriate) 02/03/16 0749 Safety Interventions Safety Precautions/Fall Reduction low bed;nonskid shoes/slippers when out of bed Musculoskeletal Interventions Activity/Level of Assistance up ad chiquita;up in posey;up in room;independently Positioning independent Muscle Strengthening mobility in bed promoted;activity/mobility promoted Self-Care Promotion independence encouraged while providing assistance Stephens Fall Risk History of Falling 0 Secondary Diagnosis 15 Ambulatory Aids 0 Intravenous Therapy/Heparin/Saline Lock 20 Gait/Transferring 0 Mental Status 0 Score 35 OTHER Stephens Fall Risk Med Goal: Infection Control Outcome: Ongoing (Interventions Implemented as Appropriate) 02/03/16 0749 Safety Interventions Isolation Precautions standard precautions maintained Infection Prevention rest/sleep promoted;promote handwashing;nutrition promoted;hydration promoted Coping/Psychosocial Response Interventions Counseling goal setting facilitated;emotional support provided Goal: Discharge Needs Assessment Outcome: Ongoing (Interventions Implemented as Appropriate) 02/01/16 0328 Discharge Needs Assessment Concerns to be Addressed no discharge needs identified Equipment Needed After Discharge none Living Environment Transportation Available car;family or friend will provide Self-Care Equipment Currently Used at Home none * Consult Note - Perla Neal - 02/03/2016 12:11 PM EDT Images from the original note were not included. UROLOGY INPATIENT PROGRESS NOTE 24HR EVENTS No acute SUBJECTIVE Denies fevers, chills, flank pain OBJECTIVE VITALS Last value Range last 24hrs Temperature Temp: 36.5 ??C (97.7 ??F) Temp: [36.5 ??C (97.7 ??F)-37.4 ??C (99.3 ??F)] Heart Rate Heart Rate: 57 Heart Rate: [57-108] Blood Pressure BP: 136/70 BP: (136-145)/(67-92) Respiratory Rate Resp: 16 Resp: [16-20] SpO2 SpO2: 94 % SpO2: [90 %-97 %] UOP PCN 4.6 PHYSICAL EXAM General - NAD, resting comfortably PCN draining clear urine LABS Recent Labs 02/03/16 0502 02/02/16 0809 02/02/16 0443 02/01/16 0535 WBC 6.8 6.6 -- 6.8 HGB 13.9 15.2 -- 14.3 HCT 39.8* 42.2 -- 41.3 PLATELET 194 202 -- 161 NA 140 -- 140 142 K 3.6 -- 3.7 3.6 CL 102 -- 102 103 CO2 24 -- 26 26 BUN 13 -- 13 9* CREATININE 1.23 -- 1.38 1.42 INR -- -- -- 1.0 MAGNESIUM 0.54* -- 0.62* 0.70 PHOS 2.6 -- 2.8 2.7 GLUCOSE 142 -- 138 138 IMAGING: IR ureteroplasty and PCN placement 02/01/16 Findings: Transplant left kidney, severe stenosis in the mid ureter. Balloon dilated to 7 mm without waist, and up-sized 10.2 Fr nephroureterostomy placed. ?? Plan: Repeat ureteroplasty in 2-4 weeks. ? CULTURES: Urine culture ?? Urine culture Nephrostomy Urine [[id number]] (Abnormal) Collected: 01/30/16 0121 ? Lab Status: Edited Result - FINAL Specimen: Nephrostomy Urine Updated: 02/03/16830 ? Urine Culture -- (A) ? Less than 1,000 cfu/mL Coagulase negative Staphylococcus species Susceptibility testing not routinely performed for Coagulase Negative Staphylococcus species and other Gram Positive organisms from urine. Blood culture [[id number]] (Abnormal) Collected: 01/30/16 0020 ? Lab Status: Preliminary result Specimen: Blood Updated: 02/02/16810 ? Blood Culture -- (A) ? Coagulase negative Staphylococcus species isolated Isolate saved. If future testing is required, contact the Microbiology [facility]. ? Gram Stain Aerobic -- (A) ? Growth detected in aerobic bottle. Gram Positive Cocci in clusters seen Results called to and read back by Dr. Yessica De La Vega. ? Organism ? Coagulase negative Staphylococcus species (A) ? Susceptibility ? Coagulase negative staphylococcus species ? MICROSCAN METHOD ? Amoxicillin + Clavulanate Resistant ? Ampicillin Resistant ? Ampicillin + Sulbactam Resistant ? Cefazolin Resistant ? Ceftriaxone Resistant ? Ciprofloxacin Resistant ? Clindamycin Sensitive ? Erythromycin Sensitive ? Gentamicin Resistant 1 ? Levofloxacin Resistant ? Oxacillin Resistant ? Penicillin Resistant ? Tetracycline Sensitive ? Trimethoprim/Sulfa Resistant ? Vancomycin Sensitive ASSESSMENT Ethel Akins is a 65 y.o. 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 PCN obstruction) now s/p IR ureteroplasty and PCNU stent upsizing 8F-->10F. Clinically stable without fevers, normal graft function with PCNU open to gravity drainage. RECOMMENDATION -Recommend leaving PCN open to gravity ideally ~2 weeks following procedure / adequate treatment ofinfection given recent history. Duration of antibiotics still being determined by ID. If a prolonged, several week course and he is otherwise stable could consider capping trial sooner (3-4 week princess). -Urology to schedule outpatient follow up in ~4weeks for discussion of long-term management options -Please do not hesitate to contact us with further questions in the interim. Associated attestation - Santosh Arredondo MD - 02/03/2016 11:20 PM EDT Attending Addendum I have seen the patient and reviewed the history and examination. I agree with the details as written. The assessment and plan were formulated in discussion with me and I agree with them as documented. I would add the following: Complicated UTI sp dilatation of ureteral stricture Can cap N-tube after afebrile x 48 hours. Once stent removed will need nephrostogram and decision if reconstruction will be necessry Santosh Arredondo * Consult Note - Eleanor Bird [facility] - 02/03/2016 8:27 AM EDT Clinical Pharmacist Note-Vancomycin Ethel Akins [id number] Ethel Akins is a 65 y.o. male is being monitored due to antibiotic therapy which includes intravenous vancomycin. Regimen: Vancomycin 1500 mg every 24 hours Indication: treatment of CONS bacteremia Initiation Date:01/29/2016 Day of Therapy:6 Targeted Goal Range: 10 - 15 mcg/mL Pharmacokinetic information: Wt Readings from Last 1 Encounters: 02/03/16 92.3 kg (203 lb 7.8 oz) Ht Readings from Last 1 Encounters: 01/29/16 180.3 cm (5' 11) Labs: Vancomycin: VANC TROUGH (mg/L) Date Value 02/01/2016 9.6 Creatinine clearance: CREATININE (mg/dL) Date Value 02/03/2016 1.23 Recommendations: Dosing recommendations: ?? Based on this information a dose of 1750 mg every 24 hours, to start at 2300 (time) on 02/03/2016should achieve an estimated trough level of 10 - 15 mcg/mL. Monitoring recommendations: ?? A new steady state level should be achieved after 4 half-lives. I suggest rechecking a vancomycin trough level 30 minutes prior to the 4th scheduled dose. We will continue to monitor the patient as long as he remains on vancomycin therapy. Please watch SCr, BUN and fluid status closely. Please page the care area pharmacist with any questions you may have. Alternately, during off-hours you may call [phone] to contact a pharmacist. ELEANOR BIRD R[facility] Ext [phone] * Plan of Care - Tamela Mckeon RN - 02/03/2016 4:32 AM EDT Problem: General Plan of Care Goal: Plan of Care Review Outcome: Ongoing (Interventions Implemented as Appropriate) 02/03/16 0416 Plan of Care Review Plan of Care Outcome Status ongoing (interventions implemented as appropriate) Progress improving Coping/Psychosocial Response Interventions Plan of Care Reviewed with patient OUTCOME EVALUATION NOTE: OUTCOME SUMMARY: Patient with an uneventful night. A&OX4, pleasant and cooperative. Nephrostomy tube secured to LLQ with tape/gauze, draining C/Y, adequately. Bladder scan 0. Patient receiving Vancomycin. Encouraged PO fluid, patient drank full 720 water in beginning of shift. Needs met, call light in reach, monitoring patient status. PLAN MOVING FORWARD: IVF hydration NS 100 cc/hr and encourage po fluid intake Will hold off on PICC due to positive blood cxs. Continue daily blood cultures. Continue vanc per ID, goal trough 10-15 Keep nephrostomy to gravity, Q4hr BS. INDIVIDUALIZED FALL PREVENTION INTERVENTIONS: Patient-specific fall risk factors per assessment: [current deficits]: none Assistance [level of assistance required for transfers and ambulation]: independent Supervision [direct monitoring required during toileting and ADLs]: independent Surveillance [continuous indirect monitoring]: Purposeful rounding, masimo, call light in reach, room near nursing station. Patient-specific fall prevention interventions for sensory deficits provided, if applicable: Light adjusted for task/sfety. CPG GOAL OUTCOME EVALUATION: * Care Management - Tawana Cortes MSW - 02/01/2016 2:43 PM EDT Patient would like to go to infusion suite at [facility]. Patient does not feel that he needs services in the home. .cmAn Important Message From Medicare about Your Rights letter reviewed with pt and pt signed acknowledgment and was provided copy * Consult Note - Ramez Serrano DO - 02/01/2016 9:59 AM EDT Infectious Disease Inpatient Consult Note Reason for Consult: We are being asked to see Ethel Akins at the request of Que Powers MD for evaluation of Staph bacteremia HPI: Ethel Akins is a 65 y.o. male with underlying hypertensive ESRD, HCV, chronic glomerulonephritis, s/p donor renal transplant 09/2015 (on tacrolimus/mycophenopate and ppx valganciclovir and TMP/SMX) with HCV+ donor (and donor UP jxn stricture, s/p external nephrostomy tube/ureteral stent), course complicated by mutliple UTI/bacteremia, and congestion, now admitted to the transplant surgical service with Staph bacteremia. Briefly, his DDKT on 09/16/2015 went well, though as his donor was noted to have Group C Streptococcal bacteremia prior to harvest, he was treated with one week of Ceftriaxone. Post-surgical follow upwas uneventful, and his stent was removed 10/25. He was then admitted 11/11-11/15 with febrile illness, at which time he was found to have sensitive Enterococcus UTI and bacteremia for which he was initi ally treated with Vancomycin and Pip-Tazo, narrowed to Ampicillin on 11/12-11/26 (though was changed to Dapto to complete this course, for patient preference/disposition planning). Then again on followup he was found to have RAY with Cr to 2.83 (baseline at the time ~1.3), he was admitted 11/26-11/27,and improved with fluids. Then again he was admitted 12/06-12/12 with ESBL-producing Klebsiella oxytoca bacteremia, managed with Pip/tazo transitioned to Meropenem then transitioned to Ciprofloxacin. After this admission, it was determined that his recurrent UTIs and bacteremias may be related to found urinary retention resulting from uretero-pelvic junction obstruction in the donor kidney; subseque nt MARICRUZ showed moderate pelvicaliectasis, increased in comparison to prior ultrasound from 12/10/15. He was then admitted 12/27 for percutaneous nephrostomy tube placement to his transplanted kidney on 12/28. For UPJ obstruction, his PCN was stented by exchange with nephroureterostomy tube on 12/31, which allowed for urine drainage either through PCN or through ureteral route, per capping. He was thendischarged 01/02 to home; though of note, his cellcept dose was decreased at the time of discharge to 250mg, due to discovery of +BK viral titers. He was discharged with his NU stent capped, with plans for antegrade nephrostogram this week. The patient was recovering from his recent surgical procedures and infections, and was feeling relatively well until the morning of 01/28 when he developed malaise and noted a fever of 101.9F, which he didn't really feel. He had traveled to [place] with his family, and returned the day prior. He didn't have any focal symptoms at the time, denies abdominal pain, SOB, cough, CP. There was no other instrumentation between 01/02 and his admission now. He was admitted directly to the [facility] transplant surgical service for evaluation and management. Cultures and baseline labs were sent, and the patient was started on crystalloid resuscitation and empiric antibiotic coverage with vancomycin and pi p-tazo. He had low grade temperature to 100F on admission, no leukocytosis, and an RAY with Cr 1.77; otherwise baseline labs were unremarkable. Blood cultures have grown coagulase negative staphylococcus in two sets, and urine studies preliminarily have 1-9K GPCs; sensitivities are pending at this time. Patient now s/p ureteroplasty and nephroureterostomy tube exchange on 01/31. ROS: Denies STANTON, dizziness, SOB, cough, abd pain, does have chronic diarrhea, no new or acute symptoms. Past Medical History Diagnosis Date ??? Back pain ??? Colon polyp ??? CVA (cerebral vascular accident) Per report but no deficits ??? ESRD (end stage renal disease) ??? GERD (gastroesophageal reflux disease) ??? HTN (hypertension) ??? Microhematuria ??? Type 2 diabetes mellitus Medications: ??? vancomycin 2 g Intravenous Q24H ??? Vancomycin Level - MAR Order Reminder NOT APPLICABLE Once ??? mycophenolate 250 mg Oral BID ??? tacrolimus 1 mg Oral BID ??? valGANciclovir 450 mg Oral Daily ??? sulfamethoxazole-trimethoprim 1 tablet Oral Daily ??? magnesium oxide 400 mg Oral TID ??? pantoprazole 40 mg Oral Daily ??? piperacillin-tazobactam 3.375 g Intravenous Q8H ??? calciTRIol 0.5 mcg Oral Daily ??? DILTiazem 120 mg Oral Daily ??? levothyroxine 75 mcg Oral QAM ??? potassium phosphate (monobasic) 1,000 mg Oral BID ??? tamsulosin 0.4 mg Oral Nightly Infusions: PRN: acetaminophen, ondansetron Allergies: No Known Allergies Social History: Social History Social History ??? [...] on file Social History Narrative Family History: non-contributory Physical Exam: Last value Range last 48 hrs Temperature Temp: 36.8 ??C (98.2 ??F) Temp: [36.2 ??C (97.1 ??F)-38.6 ??C (101.5 ??F)] Heart Rate Heart Rate: 53 Heart Rate: [48-65] Blood Pressure BP: 121/64 BP: (96-180)/(40-99) Respiratory Rate Resp: 16 Resp: [14-22] SpO2 SpO2: 93 % SpO2: [92 %-99 %] General: Pleasant, alert, appropriate; NAD HEENT: EOMI, PERRLA, no pallor, anicteric sclera. OP clear, MMM. Coated tongue. Cardiac: Normal rate/borderline bradycardia, regular rhythm, no m/g/r. Respiratory: Nonlabored. CTA-B without wheezes/rhonchi/rales. Abd: NABS; soft, non-tender less mild TTP around nephrostomy site, non- distended, no obvious masses. Well healing lower abd scar, NU tube draining hematuria. Ext: WWP, no C/C/E Skin: Intact without rash; no lesions, no petechiae Labs: Recent Labs 02/01/16 0535 WBC 6.8 RBC 4.52* HGB 14.3 HCT 41.3 MCV 91.4 MCH 31.6 MCHC 34.6 PLATELET 161 RDWCV 14.5* Cr 1.42 Micro: 09/16 Blood Cx: no growth 10/11 UCx: 10-49K CoNS, 10-49 sensitive Enterococcus spp 11/01 UCx: contaminant 11/07 UCx: 10-49K sensitive Enterococcus spp 11/11 Blood Cx X 2: sensitive E. Faecalis 11/11 UCx: sensitive Enterococcus 11/12, 11/13, 11/14, 11/15 Blood Cx: no gowth 12/06 Blood Cx X 1: Klebsiella oxatoca with ESBL 12/07 Blood Cx X 2: Klebsiella oxatoca with ESBL 12/08, 12/09, 12/10 Blood Cx: no growth 01/28 Blood Cx: Coagulase-negative Staph 01/29 Blood Cx: Coagulase-negative staph 01/29 UCx: 1-9K Gram positives, speciation pending 01/30 Blood Cx: no growth Imagin/27 CXR: No pneumonia or other acute cardiopulmonary process. MANAGER ORGANIZATIONAL: 12/29 CT a/p WO: 1. Transplant kidney in the left lower quadrant with nephrostomy tube in place and air within the renal collecting system. No renal parenchymal or collecting system calculi detected. 2. Mildly hyperdense 5 mm focus within the gallbladder neck suspicious for gallstone. Consider further characterization with right upper quadrant ultrasound. Impression: Ethel Akins is a 65 y.o. male with underlying HCV+, hypertensive ESRD s/p donor renal transplant 09/2015 (on tacrolimus/mycophenopate and ppx valganciclovir and TMP/SMX), c/b recurrent UTIs and bacteremias, urinary retention, found obstructed donor UPJ now s/p nephroureterostomy tube allowing percutaneous or ureteral urinary drainage by way of capping, admitted to the surgical transplant service with coagulase negative staph bacteremia. Source likely from recent kidney instrumentation. Coagulase negative staph tends to have significant resistance patterns. Until we have the sensitivity data back, would recommend covering with Vancomycin (trough goal 10-15). Further we recommend stopping Pip/tazo, as this isn't adding much microbial benefit and risks inducing resistance in this high risk patient. Recommendations: - Please continue Vancomycin, trough goal 10-15, renally dosed. Recommend dose 1.5g Q24H to achievegoal trough 10-15 - Please stop Pip/tazo - We will continue to follow the culture and sensitivity data with you Discussed with team. X Consult service will continue to follow patient. Recommendations are above, please page if further consultation required. Sharmaine Eden MD Infectious Disease Fellow Pager #[phone] I have seen the patient and reviewed the above history and physical and I agree with the details aswritten. The assessment and plan were formulated in discussion with me and I agree with them as documented. 65M s/p renal transplant 09/2015 well known to ID service for recurrent urosepsis now s/p nephrouereterostomy tube placement for UPJ obstruction and hydronephrosis. Was doing ok for about 1 month before he developed fevers and malaise and found to have CONS bacteremia likely from urinary source. I have asked the micro lab to speciate the GPC in nephrostomy urinary culture from 01/29. He has had histube exchanged and stricture dilated. If he remains bacteremic then would recommend renal ultrasound looking for renal abscess as persistent source of infection. For now recommend treatment with Vancomycin (goal trough 10-15 for CONS). Will continue to follow. Ramez Serrano DO, MPH Infectious Disease * Plan of Care - Bernarda Pedroza RN - 01/31/2016 4:29 PM EDT Problem: General Plan of Care Goal: Plan of Care Review Outcome: Ongoing (Interventions Implemented as Appropriate) 01/31/16 0206 01/31/16727 Plan of Care Review Plan of Care Outcome Status ongoing (interventions implemented as appropriate) -- Progress no change -- Coping/Psychosocial Response Interventions Plan of Care Reviewed with -- patient OUTCOME EVALUATION NOTE: OUTCOME SUMMARY: Yash states no pain, sleeping a lot throughout the day, had loose BM today, no free voiding only from nephrostomy, bladder scans lower then 20cc which are performed q4h, right hand IV painful, IV teamup and replaced IV, received IV K phose and mag sulfate, will be NPO at midnight for IR procedure in AM PLAN MOVING FORWARD: Rest, pain control, npo at midnight INDIVIDUALIZED FALL PREVENTION INTERVENTIONS: Patient-specific fall risk factors per assessment: [current deficits]: lines Assistance [level of assistance required for transfers and ambulation]: indepdendent Supervision [direct monitoring required during toileting and ADLs]: independent Surveillance [continuous indirect monitoring]: Masimo, purposeful rounding, call robles in reach Patient-specific fall prevention interventions for sensory deficits provided, if applicable: [X] No CPG GOAL OUTCOME EVALUATION: Goal: Fall Prevention-Safe Patient Handling Outcome: Ongoing (Interventions Implemented as Appropriate) 01/31/1672701/31/16 0800 Safety Interventions Safety Precautions/Fall Reduction low bed;nonskid shoes/slippers when out of bed -- Musculoskeletal Interventions Activity/Level of Assistance -- independently Positioning independent -- Muscle Strengthening activity/mobility promoted;mobility in bed promoted -- Self-Care Promotion independence encouraged while providing assistance -- Stephens Fall Risk History of Falling 0 -- Secondary Diagnosis 15 -- Ambulatory Aids 0 -- Intravenous Therapy/Heparin/Saline Lock 20 -- Gait/Transferring 0 -- Mental Status 0 -- Score 35 -- OTHER Stephens Fall Risk Med -- Goal: Infection Control Outcome: Ongoing (Interventions Implemented as Appropriate) 01/31/16 0728 Safety Interventions Isolation Precautions standard precautions maintained Infection Prevention rest/sleep promoted;promote handwashing Coping/Psychosocial Response Interventions Counseling emotional support provided;goal setting facilitated Goal: Discharge Needs Assessment Outcome: Ongoing (Interventions Implemented as Appropriate) 01/30/16 1455 Discharge Needs Assessment Concerns to be Addressed no discharge needs identified Living Environment Transportation Available car;family or friend will provide * Consult Note - Prakash Che MD - 01/31/2016 9:13 AM EDT UROLOGY CONSULT NOTE Reason for Consultation: Plan after antegrade nephrostogram, Urologic source of fever History of Present Illness: Ethel Akins is a 65 yo M with PMH of DM, HTN, HCV, 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 He presented to Transplant clinic 12/27 with elevated Cr despite no symptoms, admitted to Transplant service for workupof worsening renal function. Underwent transplant renal ultrasound which showed moderate pelvicaliectasis which is increased in comparison to prior ultrasound from 12/10/15. Now s/p IR placement of PCNinto transplant kidney. He was discharged home with his NU stent capped with plans for antegrade nephrostogram four weeks later. He was readmitted to Transplant Service 01/28 for fever of unknown origin. He says that his temperature was 103F at home. He had no URI symptoms, no abdominal symptoms, minor urinary symptoms including frequency and incontinence. He says this has happened in the past when he has had a urinary infection. He denies hematuria and dysuria. We have been asked to revisit Mr. Akins to make recommendations after his antegrade nephrostogram and to provide recommendations regarding any Urologic source of his fever. 24 Hour Events - Febrile to 38.6 - Blood cultures positive in 2 bottles - Urine culture with 1-9k gram positive organisms Review of Systems: Review of Systems Constitution: Positive for chills, fever and malaise/fatigue. Negative for decreased appetite. HENT: Negative for congestion, ear discharge, ear pain and sore throat. Eyes: Negative for pain. Cardiovascular: Negative for chest pain. Respiratory: Negative for cough, shortness of breath and sputum production. Skin: Negative for rash. Musculoskeletal: Negative for back pain, joint swelling and muscle cramps. Gastrointestinal: Positive for diarrhea. Negative for constipation, excessive appetite, nausea and vomiting. Has had intermittent diarrhea ever since his transplant, no acute changes in bowel habits Genitourinary: Positive for bladder incontinence, frequency and urgency. Negative for dysuria, flank pain and hematuria. Neurological: Negative for sensory change. Physical Exam: Temp: [36.7 ??C (98.1 ??F)-38.6 ??C (101.5 ??F)] Heart Rate: -- Resp: [16-18] BP: (127-159)/(68-86) SpO2: [92 %-94 %] General: No acute distress. Pleasant. Conversant. Card: RRR, no murmur Lungs: nonlabored breathing on RA Abd: Soft, ND, NT to palpation over transplant kidney, well-healing lower abdominal scar, NU tube to drainage draining clear yellow urine Labs: Recent Labs 01/31/16 0012 01/30/16 0742 01/29/16 2337 WBC 6.4 6.9 7.5 HGB 14.1 13.9 14.4 PLATELET 140* 145 173 NA 136 137 135 K 3.3* 3.7 3.8 CL 99 99 96* CO2 23 24 23 BUN 14 17 18 CREATININE 1.55* 1.67* 1.77* CALCIUM 8.6 8.8 9.3 MAGNESIUM 0.65* 0.63* 0.39* INR 1.0 -- -- PTT 30 -- -- Component Value Date/Time SPGRAVITYUA 1.010 01/31/2016 0004 PHUADIP 6.0 01/31/2016 0004 PROTEINUADIP Negative 01/31/2016 0004 GLUCOSEU 50 (A) 01/31/2016 0004 KETONESUA Negative 01/31/2016 0004 UROBILIUADIP Normal 01/31/2016 0004 BLOODUADIP Small (A) 01/31/2016 0004 NITRATEUA Negative 01/31/2016 0004 LEUKOESTERUA Negative 01/31/2016 0004 WBCUA 2 01/31/2016 0004 BILIRUBINUA Negative 01/31/2016 0004 Microbiology: 01/29 Blood culture - in process 01/10 Urine culture - Negative Imaging: KUB 01/02 IMPRESSION Left nephroureterostomy tube with the pigtail looped now low in the left hemipelvis above the level of the symphysis pubis. Compared to prior imaging. IR Study 12/31 IMPRESSION: 1. 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 2. Balloon dilated to 6 mm 3. 8.5 Fr nephrouerterostomy tube left across stricture ?? Plan : PNU tube to gravity drainage x 48 hours, then cap. Open to gravity drainage bag in case of pain, leakage around tube, fever. 12/28/15 Transplant renal ultrasound IMPRESSION Ultrasound Dictation: 1. 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 The urinary bladder at the time of scanning was virtually empty. 2. Borderline elevated RI measurements throughout the kidney. Assessment: Ethel Akins is a 65 y.o. who is s/p DDKT with obstructive uropathy s/p placement of NU readmitted with fever of unknown origin. His urinary frequency, urgency, and incontinence are consistent with presenting symptoms of UTIs in the past. This may be the reason for his current fever although he also has two positive blood cultures. This has delayed his nephrostogram. Recommendations: - Continue serial bladder scans to ensure that he is emptying his bladder - Follow cultures, especially urine - Send urine sample directly from kidney during IR study when it happens - We will follow-up after IR study with further recommendations regarding his stricture Patient seen and discussed with Dr. Arreodndo. We will continue to follow. Prakash Che MD Urology Consult Pager [phone] * Plan of Care - Anastasiia Denney RN - 01/31/2016 2:28 AM EDT Problem: General Plan of Care Goal: Plan of Care Review Outcome: Ongoing (Interventions Implemented as Appropriate) 01/31/16 0206 Plan of Care Review Plan of Care Outcome Status ongoing (interventions implemented as appropriate) Progress no change Coping/Psychosocial Response Interventions Plan of Care Reviewed with patient OUTCOME EVALUATION NOTE: OUTCOME SUMMARY: Pt c/o nausea and heartburn at beginning of shift. PRN Zofran 4 mg iv x1 and scheduled Protonix 40 mg po given with good effect. Pt tolerated taking all scheduled night medications po without vomiting. Pt had spike fever 38.6@2310. accounting specialist MD De La Vega notified. Blood culture x 2 done, urine specimen from clear urine cath and Nephrectomy tube sent to lab for UA&UC. PRN Tylenol 650 mg po given, re-checked oral temp: 37.8@0030. Scheduled Zosyn and Vancomycin iv given as ordered. Continue on MIVFof N.S infusion @150 ml /hr. Nephrectomy tube intact to gravity draining adequate amounts. Bladder scan every 4 hours with low volume overnight, no straight cath requested. Pt had a loose BM. Pt ambulated in room independently. NPO after MN. Will continue to monitor. PLAN MOVING FORWARD: Monitor vital signs and Nephrectomy tube output. Bladder scan every 4 hours. Straight cath if >200 cc on bladder scan. INDIVIDUALIZED FALL PREVENTION INTERVENTIONS: Patient-specific fall risk factors per assessment: [current deficits]: MIVF infusion, Nephrectomy tube to moran bag. Assistance [level of assistance required for transfers and ambulation]: Independent after set up. Supervision [direct monitoring required during toileting and ADLs]: eyes on. Surveillance [continuous indirect monitoring]: purposeful rounding, masimo, call light in reach. Patient-specific fall prevention interventions for sensory deficits provided, if applicable: No. CPG GOAL OUTCOME EVALUATION: Goal: Fall Prevention-Safe Patient Handling Outcome: Ongoing (Interventions Implemented as Appropriate) 01/30/16 1455 01/30/162054 Safety Interventions Safety Precautions/Fall Reduction -- commode/urinal/bedpan at bedside;environmental modification;fall reduction program maintained;lighting adjusted for task/safety;nonskid shoes/slippers when out ofbed;room near unit station Musculoskeletal Interventions Activity/Level of Assistance -- up in room;independently Positioning -- HOB up 15 degrees;independent Muscle Strengthening activity/mobility promoted;mobility in bed promoted -- Self-Care Promotion independence encouraged while providing assistance -- Stephens Fall Risk History of Falling -- 0 Secondary Diagnosis -- 15 Ambulatory Aids -- 0 Intravenous Therapy/Heparin/Saline Lock -- 20 Gait/Transferring -- 0 Mental Status -- 0 Score -- 35 OTHER Stephens Fall Risk -- Med Goal: Infection Control Outcome: Ongoing (Interventions Implemented as Appropriate) 01/30/1674501/30/162054 Safety Interventions Isolation Precautions -- standard precautions maintained Infection Prevention -- bronchial hygiene promoted;environmental surveillance;hydration promoted;nutrition promoted;promote handwashing;rest/sleep promoted Coping/Psychosocial Response Interventions Counseling emotional support provided;goal setting facilitated -- Goal: Discharge Needs Assessment Outcome: Ongoing (Interventions Implemented as Appropriate) 01/30/16 145 Discharge Needs Assessment Concerns to be Addressed no discharge needs identified Living Environment Transportation Available car;family or friend will provide * Plan of Care - Bernarda Pedroza RN - 01/30/2016 2:59 PM EDT Problem: General Plan of Care Goal: Plan of Care Review Outcome: Ongoing (Interventions Implemented as Appropriate) 01/30/1674501/30/161454 Plan of Care Review Plan of Care Outcome Status -- ongoing (interventions implemented as appropriate) Progress -- no change Coping/Psychosocial Response Interventions Plan of Care Reviewed with patient -- OUTCOME EVALUATION NOTE: OUTCOME SUMMARY: Yash states no pain, increased temp to about 38.4 at noon, at 1430 back down to 37 after tylenol, getting IV fluids and taking in PO. Prograf level drawn this am, pt received K phos IV and Mag sulfate. Pt resting in bed, went down for chest xray, nephrostomy tube putting out urine and pt free voiding sm amounts, orders to bladder scan pt q4h and let MD know if scan over 200 PLAN MOVING FORWARD: Rest, temp control INDIVIDUALIZED FALL PREVENTION INTERVENTIONS: Patient-specific fall risk factors per assessment: [current deficits]: Lines, Assistance [level of assistance required for transfers and ambulation]: independent Supervision [direct monitoring required during toileting and ADLs]: independent Surveillance [continuous indirect monitoring]: Masimo, purposeful rounding, call robles in reach Patient-specific fall prevention interventions for sensory deficits provided, if applicable: [X] No CPG GOAL OUTCOME EVALUATION: Goal: Fall Prevention-Safe Patient Handling Outcome: Ongoing (Interventions Implemented as Appropriate) 01/30/16 0746 01/30/16 1222 01/30/16 1400 Safety Interventions Safety Precautions/Fall Reduction low bed;nonskid shoes/slippers when out of bed -- -- Musculoskeletal Interventions Activity/Level of Assistance -- -- independently Positioning -- independent;HOB up 15 degrees -- Muscle Strengthening -- -- -- Self-Care Promotion -- -- -- Stephens Fall Risk History of Falling 0 -- -- Secondary Diagnosis 15 -- -- Ambulatory Aids 0 -- -- Intravenous Therapy/Heparin/Saline Lock 20 -- -- Gait/Transferring 0 -- -- Mental Status 0 -- -- Score 35 -- -- OTHER Stephens Fall Risk Med -- -- 01/30/16 1455 Safety Interventions Safety Precautions/Fall Reduction -- Musculoskeletal Interventions Activity/Level of Assistance -- Positioning -- Muscle Strengthening activity/mobility promoted;mobility in bed promoted Self-Care Promotion independence encouraged while providing assistance Stephens Fall Risk History of Falling -- Secondary Diagnosis -- Ambulatory Aids -- Intravenous Therapy/Heparin/Saline Lock -- Gait/Transferring -- Mental Status -- Score -- OTHER Stephens Fall Risk -- Goal: Infection Control Outcome: Ongoing (Interventions Implemented as Appropriate) 01/30/16 0746 01/30/16 1455 Safety Interventions Isolation Precautions -- standard precautions maintained Infection Prevention rest/sleep promoted;promote handwashing -- Coping/Psychosocial Response Interventions Counseling emotional support provided;goal setting facilitated -- Goal: Discharge Needs Assessment Outcome: Ongoing (Interventions Implemented as Appropriate) 01/30/16 1455 Discharge Needs Assessment Concerns to be Addressed no discharge needs identified Living Environment Transportation Available car;family or friend will provide * Consult Note - Prakash Che MD - 01/30/2016 10:30 AM EDT UROLOGY CONSULT NOTE Reason for Consultation: Plan after antegrade nephrostogram, Urologic source of fever History of Present Illness: Ethel Akins is a 65 yo M with PMH of DM, HTN, HCV, 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 He presented to Transplant clinic 12/27 with elevated Cr despite no symptoms, admitted to Transplant service for workupof worsening renal function. Underwent transplant renal ultrasound which showed moderate pelvicaliectasis which is increased in comparison to prior ultrasound from 12/10/15. Now s/p IR placement of PCNinto transplant kidney. He was discharged home with his NU stent capped with plans for antegrade nephrostogram four weeks later. He was readmitted to Transplant Service 01/28 for fever of unknown origin. He says that his temperature was 103F at home. He had no URI symptoms, no abdominal symptoms, minor urinary symptoms including frequency and incontinence. He says this has happened in the past when he has had a urinary infection. He denies hematuria and dysuria. We have been asked to revisit Mr. Akins to make recommendations after his antegrade nephrostogram (scheduled for tomorrow) and to provide recommendations regarding any Urologic source of his fever. Past Medical/Surgical History: Past Medical History Diagnosis [...] (urinary tract infection) N39.0 ??? Fever R50.9 Past Surgical History Procedure Laterality Date ??? Pro anastomosis, av, any site Left 05/09/2015 AV FISTULA CREATION, DIRECT HEMODIALYSIS, ANY SITE, EG ASHWINI FISTULA UPPER EXTREMITY performed by Que Amaro MD at [facility] MAIN OR ??? Pro transplantation of kidney N/A 09/16/2015 @KIDNEY TRANSPLANT, WITHOUT RECIPIENT NEPHRECTOMY performed by Franko Larkin MD at [facility] MAIN OR ??? Pro transplant, prep cadaver renal graft N/A 09/16/2015 @PREPARATION CADAVERIC RENAL ALLOGRAFT performed by Franko Larkin MD at [facility] MAIN OR ??? N/A 09/16/2015 ORGAN ACQUISITION RENAL, CADAVERIC performed by Franko Larkin MD at [facility] MAIN OR Social History: Social History Social History [...] Systems: Review of Systems Constitution: Positive for chills, fever and malaise/fatigue. Negative for decreased appetite. HENT: Negative for congestion, ear discharge, ear pain and sore throat. Eyes: Negative for pain. Cardiovascular: Negative for chest pain. Respiratory: Negative for cough, shortness of breath and sputum production. Skin: Negative for rash. Musculoskeletal: Negative for back pain, joint swelling and muscle cramps. Gastrointestinal: Positive for diarrhea. Negative for constipation, excessive appetite, nausea and vomiting. Has had intermittent diarrhea ever since his transplant, no acute changes in bowel habits Genitourinary: Positive for bladder incontinence, frequency and urgency. Negative for dysuria, flank pain and hematuria. Neurological: Negative for sensory change. Medications: No current facility-administered medications on file prior to encounter. Current Outpatient Prescriptions on File Prior to Encounter Medication Sig Dispense Refill ??? mycophenolate (CELLCEPT) 250 mg Capsule Take 1 capsule by mouth 2 times daily. ??? sulfamethoxazole-trimethoprim (BACTRIM;SEPTRA) 400-80 mg Tablet Take 1 tablet by mouth every other day for 364 days. 15 tablet 11 ??? potassium phosphate, monobasic, (K-PHOS) 500 mg Tablet, Soluble Take 2 tablets by mouth 2 timesdaily. 1 tablet 0 ??? valGANciclovir (VALCYTE) 450 mg Tablet Take 450 mg by mouth daily. ??? Magnesium Gluconate [...] tablet by mouth daily. 30 tablet 0 Physical Exam: Temp: [37.5 ??C (99.5 ??F)-39.4 ??C (102.9 ??F)] Heart Rate: [119] Resp: [16-18] BP: (125-151)/(70-101) SpO2: [93 %-94 %] General: No acute distress. Pleasant. Conversant. Card: RRR, no murmur Lungs: nonlabored breathing on RA Abd: Soft, ND, NT to palpation over transplant kidney, well-healing lower abdominal scar, NU tube to drainage draining clear yellow urine Rectal: Prostate 30g, symmetric, non-tender, no nodules, not boggy Labs: Recent Labs 01/30/16 0742 01/29/16 2337 WBC 6.9 7.5 HGB 13.9 14.4 PLATELET 145 173 NA 137 135 K 3.7 3.8 CL 99 96* CO2 24 23 BUN 17 18 CREATININE 1.67* 1.77* CALCIUM 8.8 9.3 MAGNESIUM 0.63* 0.39* Component Value Date/Time SPGRAVITYUA 1.004 01/30/2016 0120 PHUADIP 7.0 01/30/2016 0120 PROTEINUADIP Negative 01/30/2016 0120 GLUCOSEU Negative 01/30/2016 0120 KETONESUA Negative 01/30/2016 0120 UROBILIUADIP Normal 01/30/2016 0120 BLOODUADIP Negative 01/30/2016 0120 NITRATEUA Negative 01/30/2016 0120 LEUKOESTERUA Trace (A) 01/30/2016 0120 WBCUA 1 01/30/2016 0120 BILIRUBINUA Negative 01/30/2016 0120 Microbiology: 01/29 Blood culture - in process 01/10 Urine culture - Negative Imaging: KUB 01/02 IMPRESSION Left nephroureterostomy tube with the pigtail looped now low in the left hemipelvis above the level of the symphysis pubis. Compared to prior imaging. IR Study 12/31 IMPRESSION: 1. 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 2. Balloon dilated to 6 mm 3. 8.5 Fr nephrouerterostomy tube left across stricture ?? Plan : PNU tube to gravity drainage x 48 hours, then cap. Open to gravity drainage bag in case of pain, leakage around tube, fever. 12/28/15 Transplant renal ultrasound IMPRESSION Ultrasound Dictation: 1. 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 The urinary bladder at the time of scanning was virtually empty. 2. Borderline elevated RI measurements throughout the kidney. Assessment: Ethel Akins is a 65 y.o. who is s/p DDKT with obstructive uropathy s/p placement of NU readmitted with fever of unknown origin. His urinary frequency, urgency, and incontinence are consistent with presenting symptoms of UTIs in the past. This may be the reason for his current fever although cultures are not finalized yet. Based on symptoms and physical exam prostatitis is less likely. Recommendations: - Serial bladder scans to ensure that he is emptying his bladder - Follow cultures, especially urine - Send urine sample directly from kidney during IR study tomorrow (ordered) - We will follow-up tomorrow after IR study with further recommendations regarding his stricture Patient seen and discussed with Dr. Arredondo. We will continue to follow. Prakash Che MD Urology Consult Pager [phone] * Consult Note - Jayde Tristan RPH - 01/29/2016 11:03 PM EDT Clinical Pharmacist Note - Vancomycin Ethel Akins [id number] Ethel Akins is a 65 y.o. male who is starting antibiotic therapy which includes intravenous vancomycin. Based on a review of the patient???s chart and/or conversation with the patient???s providers vancomycin is being used for empiric coverage with a targeted goal of 15 - 20 mcg/mL. The following Pharmacokinetic data has been evaluated: Wt Readings from Last 1 Encounters: 01/11/16 95.8 kg (211 lb 3.2 oz) Ht Readings from Last 1 Encounters: 01/11/16 180.3 cm (5' 11) Labs: Creatinine clearance: CREATININE (mg/dL) Date Value 01/11/2016 2.12 (H) Dosing recommendations: ??? Based on this information, vancomycin therapy will be initiated with a one- time dose of 2000 mgto be given now. ??? A full dosing regimen will be ordered upon complete pharmacist consultation to follow. We will continue to monitor the patient as long as he remains on vancomycin therapy. Thank you for this consult and please page the care area pharmacist with any questions you may have. Alternately, during off-hours (9p-7a) you may call [phone] to contact a pharmacist. JAYDE TRISTAN RPH documented in this encounter Plan of Treatment Upcoming Encounters Date Type Department Care Team (Late st Contact Info) Description 04/15/2024 10:00 AM EDT Hospital Encounter [place] [address] Arrived Scheduled Referrals Name Type Priority Associated Diagnoses Order Schedule OPAT: Order / Recommendation for Post Discharge IV Antibiotic Management Outpatient Referral Routine Bacteremia Ordered: 02/04/2016 documented as of this encounter Procedures Procedure Name Priority Date/Time Associated Diagnosis Comments BLOOD CULTURE Routine 02/05/2016 7:22 AM EDT HEMOGRAM Routine 02/05/2016 3:55 AM EDT DIFFERENTIAL, AUTOMATED Routine 02/05/2016 3:55 AM EDT CBC (WITH DIFF) Routine 02/05/2016 3:55 AM EDT PHOSPHORUS Routine 02/05/2016 3:55 AM EDT MAGNESIUM Routine 02/05/2016 3:55 AM EDT BASIC METABOLIC PANEL Routine 02/05/2016 3:[address] PICC LINE: CONTACT VASCULAR ACCESS Routine 02/04/2016 9:02 AM EDT XR PICC PLACEMENT OVER 5 YEARS (IV TEAM) Routine 02/04/2016 8:49 AM EDT TACROLIMUS LEVEL Timed 02/04/2016 7:40 AM EDT HEMOGRAM Routine 02/04/2016 4:38 AM EDT DIFFERENTIAL, AUTOMATED Routine 02/04/2016 4:38 AM EDT BLOOD CULTURE Routine 02/04/2016 4:38 AM EDT CBC (WITH DIFF) Routine 02/04/2016 4:38 AM EDT PHOSPHORUS Routine 02/04/2016 4:38 AM EDT MAGNESIUM Routine 02/04/2016 4:38 AM EDT BASIC METABOLIC PANEL Routine 02/04/2016 4:38 AM EDT VANCOMYCIN, TROUGH Timed 02/03/2016 10 :09 PM EDT HEMOGRAM Routine 02/03/2016 5:02 AM EDT DIFFERENTIAL, AUTOMATED Routine 02/03/2016 5:02 AM EDT BLOOD CULTURE Routine 02/03/2016 5:02 AM EDT CBC (WITH DIFF) Routine 02/03/2016 5:02 AM EDT PHOSPHORUS Routine 02/03/2016 5:02 AM EDT MAGNESIUM Routine 02/03/2016 5:02 AM EDT BASIC METABOLIC PANEL Routine 02/03/2016 5:02 AM EDT URINE CULTURE Routine 02/02/2016 3:46 PM EDT HEMOGRAM Routine 02/02/2016 8:09 AM EDT DIFFERENTIAL, AUTOMATED Routine 02/02/2016 8:09 AM EDT CBC (WITH DIFF) Routine 02/02/2016 8:09 AM EDT BLOOD CULTURE Routine 02/02/2016 4:43 AM EDT PHOSPHORUS Routine 02/02/2016 4:43 AM EDT MAGNESIUM Routine 02/02/2016 4:43 AM EDT BASIC METABOLIC PANEL Routine 02/02/2016 4:43 AM EDT VANCOMYCIN, TROUGH Timed 02/01/2016 10 :32 PM EDT IR ALL PROCEDURES Routine 02/01/2016 11:37 AM EDT Kidney replaced by transplant TACROLIMUS LEVEL STAT 02/01/2016 8:16 AM EDT HEMOGRAM Routine 02/01/2016 5:35 AM EDT DIFFERENTIAL, AUTOMATED Routine 02/01/2016 5:35 AM EDT BLOOD CULTURE STAT 02/01/2016 5:35 AM EDT APTT Routine 02/01/2016 5:35 AM EDT PROTHROMBIN TIME Routine 02/01/2016 5:35 AM EDT CBC (WITH DIFF) Routine 02/01/2016 5:35 AM EDT PHOSPHORUS Routine 02/01/2016 5:35 AM EDT MAGNESIUM Routine 02/01/2016 5:35 AM EDT HEPATIC FUNCTION PANEL Routine 02/01/2016 5:35 AM EDT BASIC METABOLIC PANEL Routine 02/01/2016 5:35 AM EDT BLOOD CULTURE STAT 01/31/2016 12:28 AM EDT BK QUANT BLOOD RESULT Routine 01/31/2016 12:12 AM EDT BKV QUANT BLOOD Routine 01/31/2016 12:12 AM EDT HEMOGRAM Routine 01/31/2016 12:12 AM EDT DIFFERENTIAL, AUTOMATED Routine 01/31/2016 12:12 AM EDT ABO/RH TYPING Routine 01/31/2016 12:12 AM EDT BLOOD CULTURE STAT 01/31/2016 12:12 AM EDT APTT Routine 01/31/2016 12:12 AM EDT PROTHROMBIN TIME Routine 01/31/2016 12:1 2 AM EDT CBC (WITH DIFF) Routine 01/31/2016 12:12 AM EDT ANTIBODY SCREEN Routine 01/31/2016 12:12 AM EDT TYPE AND SCREEN ([facility]/CGP/MOSES) Routine 01/31/2016 12:12 AM EDT PHOSPHORUS Routine 01/31/2016 12:12 AM EDT MAGNESIUM Routine 01/31/2016 12:12 AM EDT HEPATIC FUNCTION PANEL Routine 01/31/2016 12:12 AM EDT BASIC METABOLIC PANEL Routine 01/31/2016 12:12 AM EDT URINALYSIS WITH REFLEX CULTURE Routine 01/31/2016 12:04 AM EDT URINALYSIS WITH REFLEX CULTURE Routine 01/31/2016 12:03 AM EDT XR CHEST PA AND LATERAL Routine 01/30/2016 3:09 PM EDT CMV PCR, QUANTITATIVE Routine 01/30/2016 10:43 AM EDT HEMOGRAM STAT 01/30/2016 7:42 AM EDT DIFFERENTIAL, AUTOMATED STAT 01/30/2016 7:42 AM EDT TACROLIMUS LEVEL STAT 01/30/2016 7:42 AM EDT CBC (WITH DIFF) STAT 01/30/2016 7:42 AM EDT PHOSPHORUS STAT 01/30/2016 7:42 AM EDT MAGNESIUM STAT 01/30/2016 7:42 AM EDT BASIC METABOLIC PANEL STAT 01/30/2016 7:42 AM EDT URINE CULTURE Routine 01/30/2016 1:21 AM EDT URINALYSIS WITH REFLEX CULTURE STAT 01/30/2016 1:20 AM EDT BLOOD CULTURE STAT 01/30/2016 12:20 AM EDT HEMOGRAM STAT 01/29/2016 11:37 PM EDT DIFFERENTIAL, AUTOMATED STAT 01/29/2016 11:37 PM EDT CBC (WITH DIFF) STAT 01/29/2016 11:37 PM EDT PHOSPHORUS STAT 01/29/2016 11:37 PM EDT MAGNESIUM STAT 01/29/2016 11:37 PM EDT HEPATIC FUNCTION PANEL STAT 01/29/2016 11:37 PM EDT BASIC METABOLIC PANEL STAT 01/29/2016 11:37 PM EDT BLOOD CULTURE STAT 01/29/2016 11:35 PM EDT URINALYSIS WITH REFLEX CULTURE Routine 01/29/2016 11:06 PM EDT documented in this encounter Results * Blood culture (02/05/2016 7:22 AM EDT) Blood Culture No growth at 5 days. [facility] Blood specimen (specimen) STRUCTURE OF RIGHT HAND / Unknown 02/05/2016 7:22 AM EDT 02/05/2016 7:44 AM EDT Narrative Resulting Agency Comment Spec In Lab Que Amaro MD MICROBIOLOGY - BLOOD ORDERABLES [facility] [place] [address] * Differential, Automated (02/05/2016 3:55 AM EDT) Neutrophil % 67.5 % [facility] Neutrophil Absolute 5.66 1.50 - 6.30 x10(3)/mcL [facility] Lymph % 20.4 % [facility] Lymphocytes Abs 1.7 1.0 - 3.6 x10(3)/[facility] Monocyte % 6.4 % [facility] Monocyte Abs 0.5 0.2 - 1.0 x10(3)/[facility] Eos % 4.2 % [facility] Eosinophils Abs 0.4 0.0 - 0.5 x10(3)/[facility] Basophil % 1.0 % [facility] Baso Absolute 0.1 0.0 - 0.2 x10(3)/[facility] Immature Gran % 0.50 % [facility] Comment: Immature granulocytes(IG's)percentage and absolute count will include metamyelocytes, myelocytes, and promyelocytes. Blood smears from CBCs yielding IG's will be scanned manually for concordance. If this scan disagrees with the automated IG or if promyelocytes are noted, a manual differential will be performed. Immature Gran Absolute 0.04 0.00 - 0.05 x10(3)/[facility] Blood specimen (specimen) 02/05/2016 3:55 AM EDT 02/05/2016 4:13 AM EDT Narrative Resulting Agency Comment Spec In Lab Que Amaro MD HEMATOLOGY ORD ERABLES [facility] [place] [address] * (ABNORMAL) Hemogram (02/05/2016 3:55 AM EDT) White Blood Cell 8.4 4.0 - 10.0 x10(3)/[facility] Red Blood Cell 4.23(L) 4.63 - 6.08 x10(6)/[facility] Hemoglobin 13.5(L) 13.7 - 17.5 gm/dL [facility] Hematocrit 38.7(L) 40.0 - 51.0 % [facility] Mean Cell Volume 91.5 79.0 - 92.0 fL [facility] Mean Cell Hemoglobin 31.9 25.6 - 32.2 pg [facility] Mean Cell Hemoglobin Concentration 34.9 32.0 - 36.5 gm/dL [facility] Platelet 215 145 - 370 x10(3)/mc L [facility] RDW Standard Deviation 48.2(H) 35.0 - 46.0 fL [facility] RDW coefficient of variation 14.4 10.9 - 14.4 % [facility] Mean Platelet Volume 9.0 9.0 - 12.0 fL [facility] NRBC% auto 0.0 % [facility] NRBC Absolute 0.000 0.000 - 0.012 x10(3)/mc L [facility] Blood specimen (specimen) 02/05/2016 3:55 AM EDT 02/05/2016 4:13 AM EDT Narrative Resulting Agency Comment Spec In Lab Que Amaro MD HEMATOLOGY ORD ERABLES Performing Organization Address City/[facility]/ZIP Co de Phone Number [facility] [place] [address] * Phosphorus (02/05/2016 3:55 AM EDT) Phosphorus 2.9 2.5 - 4.5 mg/dL [facility] Blood specimen (specimen) 02/05/2016 3:55 AM EDT 02/05/2016 4:13 AM EDT Narrative Resulting Agency Comment Spec In Lab uQe Amaro MD CHEMISTRY ORDE RABLENORE Performing Organization Address City/[facility]/ZIP Co de Phone Number [facility] [place] [address] * (ABNORMAL) Magnesium (02/05/2016 3:55 AM EDT) Magnesium 0.57(L) 0.69 - 1.07 mmol/L [facility] Blood specimen (specimen) 02/05/2016 3:55 AM EDT 02/05/2016 4:13 AM EDT Narrative Resulting Agency Comment Spec In Lab Que Amaro MD CHEMISTRY ROCHELLE JENNINGS [facility] [place] [address] * (ABNORMAL) Basic Metabolic Panel (non-fasting) (02/05/2016 3:55 AM EDT) Glucose 135 65 - 199 mg/dL [facility] Comment:Diabetes: >=200 mg/d L plus symptoms Blood Urea Nitrogen 12 10 - 20 mg/dL [facility] Creatinine 1.36 0.80 - 1.50 mg/dL [facility] Comment: Please note that the pediatric reference intervals supplied above were not validated at [facility]. Results from pediatric patients should be interpreted in conjunction to the patient's age, height and muscle mass. Sodium 140 135 - 145 mmol/L [facility] Potassium 3.8 3.5 - 5.0 mmol/L [facility] mmol/L [facility] Anion Gap 11 5 - 15 mmol/L [facility] Calcium 9.1 8.5 - 10.5 mg/dL [facility] Est Glomerular Filtration Rate 52(L) >=60 [facility] Comment: This [...] the following links into your internet browser. [email or web address] Blood specimen (specimen) 02/05/2016 3:55 AM EDT 02/05/2016 4:13 AM EDT Narrative Resulting Agency Comment Spec In Lab Que Amaro MD CHEMISTRY ROCHELLE JENNINGS [facility] [place] [address] * Place PICC Line: Contact Vascular Access Page [id number] Extremity to exclude: DO NOT use LEFT Arm; Is PICC procedure required PRIOR to patients discharge? Yes (02/04/2016 9:02 AM EDT) Narrative Jesus Erickson RN - 02/04/2016 9:02 AM EDT Jesus Erickson RN ? 02/04/2016 ??9:02 AM PICC/Midline Insertion Procedure Note Indications: Anti-infective [...] to the planned procedure. Hand Hygiene: The head field hockey coach did perform hand hygiene prior to line insertion. Catheter type: PICC Lot number: [id number] Procedure Technique: Skin was prepped with chlorhexidine. [...] seldinger technique and fluoroscopy. Arm circumference was 32 cm at 2 cm above the insertion site. Final catheter length (with trimming): 42 cm Internal: 42 cm External: 0 cm Tip in SVC per Joel DILLON ??. The line was not placed over a guidewire. Post Procedure: Diagnosis: S/P KIDNEY TRANSPLANT Blood return noted on aspiration of line after placement confirmed. 3 mls of normal saline infused free flowing to gravity via PICC after insertion. Sterile dressing applied: CHG Impregnated Tegaderm. Findings: The patient did tolerate the procedure well. No Complications. 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 Limited view of the line tip only. COMPARISON: January 30, 2016. FINDINGS: Intraprocedural frontal radiograph of the mediastinum demonstrates a Right PICC, with the catheter tip projected at the superior cavoatrial junction. Procedure Note Nadia Hdz MD - 02/04/2016 EXAMINATION: XR PLACEMENT PICC LINE (IV TEAM) OVER 5 YEARS CLINICAL HISTORY: Confirmation of PICC line placement TECHNIQUE: C-arm placement of PICC. Limited view of the line tip only. COMPARISON: January 30, 2016. FINDINGS: Intraprocedural frontal radiograph of the mediastinumdemonstrates a Right PICC, with the catheter tip projected at the superior cavoatrialjunction. Que Amaro MD IMG FLUORO ORD ERABLES * Tacrolimus level (02/04/2016 7:40 AM EDT) Tacrolimus 9.1 ng/mL [facility] Comment: Trough therapeutic: ??5-15 ng/mL Performed by ultra-performance liquid chromatography tandem mass spectrometry (UPLCMS/MS). Blood specimen (specimen) 02/04/2016 7:40 AM EDT 02/04/2016 11:48 AM EDT Narrative Resulting Agency Comment Spec In Lab Que Amaro MD CHEMISTRY ORDBhargav JENNINGS Performing Organization Address City/[facility] Co de Phone Number [facility] [place] [address] * Phosphorus (02/04/2016 4:38 AM EDT) Phosphorus 2.9 2.5 - 4.5 mg/dL [facility] Blood specimen (specimen) 02/04/2016 4:38 AM EDT 02/04/2016 4:50 AM EDT Narrative Resulting Agency Comment Spec In Lab Que Amaro MD CHEMISTRY ROCHELLE JENNINGS Performing Organization Address [facility] Co de Phone Number [facility] [place] [address] * (ABNORMAL) Magnesium (02/04/2016 4:38 AM EDT) Magnesium 0.61(L) 0.69 - 1.07 mmol/L [facility] Blood specimen (specimen) 02/04/2016 4:38 AM EDT 02/04/2016 4:50 AM EDT Narrative Resulting Agency Comment Spec In Lab Que Amaro MD CHEMISTRY ORDBhargav JENNINGS Performing Organization Address [facility] Co de Phone Number [facility] [place] [address] * Blood culture (02/04/2016 4:38 AM EDT) Blood Culture No growth at 5 days. [facility] Blood specimen (specimen) STRUCTURE OF RIGHT HAND / Unknown 02/04/2016 4:38 AM EDT 02/04/2016 5:17 AM EDT Narrative Resulting Agency Comment Spec In Lab Que Amaro MD MICROBIOLOGY - BLOOD ORDERABLES [facility] [place] [address] * (ABNORMAL) Basic Metabolic Panel (non-fasting) (02/04/2016 4:38 AM EDT) Glucose 144 65 - 199 mg/dL [facility] Comment:Diabetes: >=200 mg/d L plus symptoms Blood Urea Nitrogen 12 10 - 20 mg/dL [facility] Creatinine 1.32 0.80 - 1.50 mg/dL [facility] Comment: Please note that the pediatric reference intervals supplied above were not validated at [facility]. Results from pediatric patients should be interpreted in conjunction to the patient's age, height and muscle mass. Sodium 141 135 - 145 mmol/L [facility] Potassium 4.2 3.5 - 5.0 mmol/L [facility] [...] mmol/L [facility] Anion Gap 16(H) 5 - 15 mmol/L [facility] Calcium 9.6 8.5 - 10.5 mg/dL [facility] Est Glomerular Filtration Rate 54(L) >=60 [facility] Comment: This [...] the following links into your internet browser. [email or web address] Blood specimen (specimen) 02/04/2016 4:38 AM EDT 02/04/2016 4:50 AM EDT Narrative Resulting Agency Comment Spec In Lab Que Amaro MD CHEMISTRY ROCHELLE JENNINGS [facility] [place] [address] * Differential, Automated (02/04/2016 4:38 AM EDT) Neutrophil % 68.1 % [facility] Neutrophil Absolute 4.82 1.50 - 6.30 x10(3)/[facility] Lymph % 20.3 % [facility] Lymphocytes Abs 1.4 1.0 - 3.6 x10(3)/[facility] Monocyte % 6.1 % [facility] Monocyte Abs 0.4 0.2 - 1.0 x10(3)/[facility] Eos % 4.1 % [facility] Eosinophils Abs 0.3 0.0 - 0.5 x10(3)/[facility] Basophil % 1.1 % [facility] Baso Absolute 0.1 0.0 - 0.2 x10(3)/[facility] Immature Gran % 0.30 % [facility] Comment: Immature granulocytes(IG's)percentage and absolute count will include metamyelocytes, myelocytes, and promyelocytes. Blood smears from CBCs yielding IG's will be scanned manually for concordance. If this scan disagrees with the automated IG or if promyelocytes are noted, a manual differential will be performed. Immature Gran Absolute 0.02 0.00 - 0.05 x10(3)/[facility] Blood specimen (specimen) 02/04/2016 4:38 AM EDT 02/04/2016 4:50 AM EDT Narrative Resulting Agency Comment Spec In Lab Que Amaro MD HEMATOLOGY ORD ERABLES Performing Organization Address City/[facility]/ZIP Co de Phone Number [facility] [place] [address] * (ABNORMAL) Hemogram (02/04/2016 4:38 AM EDT) White Blood Cell 7.1 4.0 - 10.0 x10(3)/mc L [facility] Red Blood Cell 4.48(L) 4.63 - 6.08 x10(6)/mc L [facility] Hemoglobin 14.0 13.7 - 17.5 gm/dL [facility] Hematocrit 40.3 40.0 - 51.0 % [facility] Mean Cell Volume 90.0 79.0 - 92.0 fL [facility] Mean Cell Hemoglobin 31.3 25.6 - 32.2 pg [facility] Mean Cell Hemoglobin Concentration 34.7 32.0 - 36.5 gm/dL [facility] Platelet 198 145 - 370 x10(3)/mc L [facility] RDW Standard Deviation 46.6(H) 35.0 - 46.0 fL [facility] RDW coefficient of variation 14.2 10.9 - 14.4 % [facility] Mean Platelet Volume 9.3 9.0 - 12.0 fL [facility] NRBC% auto 0.0 % [facility] NRBC Absolute 0.000 0.000 - 0.012 x10(3)/mc L [facility] Blood specimen (specimen) 02/04/2016 4:38 AM EDT 02/04/2016 4:50 AM EDT Narrative Resulting Agency Comment Spec In Lab Que Amaro MD HEMATOLOGY ORD ERABLES [facility] [place] [address] * Vancomycin, trough (02/03/2016 10:09 PM EDT) Pathologist [facility] Vancomycin, Trough 10.8 mg/L [facility] Comment: Therapeutic range for complicated infections such as bacteremia, endocarditis, osteomyelitis, meningitis, and hospital-acquired pneumonia caused by S. aureus: 15-20 mg/L Therapeutic range for other indications: 10-15 mg/L Toxic: >25 mg/L Reference: Vancomycin Therapeutic Monitoring: Review and Recommendations from the ASHP, IDSA and SIDP Task Force. ??Am J Health-Syst Pharm. 2009; 66:82-98 Blood specimen (specimen) 02/03/2016 10:09 PM EDT 02/03/2016 10:14 PM EDT Narrative Resulting Agency Comment Spec In Lab Que Amaro MD CHEMISTRY ROCHELLE JENNINGS [facility] [place] [address] * Differential, Automated (02/03/2016 5:02 AM EDT) [facility] Neutrophil % 67.6 % [facility] Neutrophil Absolute 4.57 1.50 - 6.30 x10(3)/[facility] Lymph % 19.6 % [facility] Lymphocytes Abs 1.3 1.0 - 3.6 x10(3)/[facility] Monocyte % 6.6 % [facility] Monocyte Abs 0.4 0.2 - 1.0 x10(3)/[facility] Eos % 4.9 % [facility] Eosinophils Abs 0.3 0.0 - 0.5 x10(3)/[facility] Basophil % 1.2 % [facility] Baso Absolute 0.1 0.0 - 0.2 x10(3)/[facility] Immature Gran % 0.10 % [facility] Comment: Immature granulocytes(IG's)percentage and absolute count will include metamyelocytes, myelocytes, and promyelocytes. Blood smears from CBCs yielding IG's will be scanned manually for concordance. If this scan disagrees with the automated IG or if promyelocytes are noted, a manual differential will be performed. Immature Gran Absolute 0.01 0.00 - 0.05 x10(3)/mcL [facility] Blood specimen (specimen) 02/03/2016 5:02 AM EDT 02/03/2016 5:24 AM EDT Narrative Resulting Agency Comment Spec In Lab Que Amaro MD HEMATOLOGY ORD ERABLES [facility] [place] [address] * (ABNORMAL) Hemogram (02/03/2016 5:02 AM EDT) White Blood Cell 6.8 4.0 - 10.0 x10(3)/mc L [facility] Red Blood Cell 4.43(L) 4.63 - 6.08 x10(6)/mc L [facility] Hemoglobin 13.9 13.7 - 17.5 gm/dL [facility] Hematocrit 39.8(L) 40.0 - 51.0 % [facility] Mean Cell Volume 89.8 79.0 - 92.0 fL [facility] Mean Cell Hemoglobin 31.4 25.6 - 32.2 pg [facility] Mean Cell Hemoglobin Concentration 34.9 32.0 - 36.5 gm/dL [facility] Platelet 194 145 - 370 x10(3)/mc L [facility] RDW Standard Deviation 47.2(H) 35.0 - 46.0 fL [facility] RDW coefficient of variation 14.3 10.9 - 14.4 % [facility] Mean Platelet Volume 9.6 9.0 - 12.0 fL [facility] NRBC% auto 0.0 % [facility] NRBC Absolute 0.000 0.000 - 0.012 x10(3)/mc L [facility] Blood specimen (specimen) 02/03/2016 5:02 AM EDT 02/03/2016 5:24 AM EDT Narrative Resulting Agency Comment Spec In Lab Que Amaro MD HEMATOLOGY ORD ERABLES Performing Organization Address City/[facility] Co de Phone Number [facility] [place] [address] * Phosphorus (02/03/2016 5:02 AM EDT) Phosphorus 2.6 2.5 - 4.5 mg/dL [facility] Blood specimen (specimen) 02/03/2016 5:02 AM EDT 02/03/2016 5:24 AM EDT Narrative Resulting Agency Comment Spec In Lab Que Amaro MD CHEMISTRY ROCHELLE JENNINGS Performing Organization Address [facility] de Phone Number [facility] [place] [address] * (ABNORMAL) Magnesium (02/03/2016 5:02 AM EDT) Magnesium 0.54(L) 0.69 - 1.07 mmol/L [facility] Blood specimen (specimen) 02/03/2016 5:02 AM EDT 02/03/2016 5:24 AM EDT Narrative Resulting Agency Comment Spec In Lab Que Amaro MD CHEMISTRY ORDBhargav JENNINGS Performing Organization Address [facility] Co de Phone Number [facility] [place] [address] * Blood culture (02/03/2016 5:02 AM EDT) Blood Culture No growth at 5 days. [facility] Blood specimen (specimen) PERIPHERAL BLOOD / Unknown 02/03/2016 5:02 AM EDT 02/03/2016 6:07 AM EDT Comment:R HAND Narrative Resulting Agency Comment Spec In Lab Que Amaro MD MICROBIOLOGY - BLOOD ORDERABLES [facility] [place] [address] * (ABNORMAL) Basic Metabolic Panel (non-fasting) (02/03/2016 5:02 AM EDT) Glucose 142 65 - 199 mg/dL [facility] Comment:Diabetes: >=200 mg/d L plus symptoms Blood Urea Nitrogen 13 10 - 20 mg/dL [facility] Creatinine 1.23 0.80 - 1.50 mg/dL [facility] Comment: Please note that the pediatric reference intervals supplied above were not validated at [facility]. Results from pediatric patients should be interpreted [...] 15 mmol/L [facility] Calcium 9.4 8.5 - 10.5 mg/dL [facility] Est Glomerular Filtration Rate 59(L) >=60 [facility] Comment: This [...] the following links into your internet browser. [email or web address] Blood specimen (specimen) 02/03/2016 5:02 AM EDT 02/03/2016 5:24 AM EDT Narrative Resulting Agency Comment Spec In Lab Que Amaro MD CHEMISTRY ORDE RABLES Performing Organization Address [facility] Co de Phone Number [facility] [place] [address] * Urine culture Nephrostomy Urine (02/02/2016 3:46 PM EDT) [facility] Urine Culture No growth (Less than 100 cfu/ml). [facility] Urine specimen from nephrostomy tube (specimen) 02/02/2016 3:46 PM EDT 02/02/2016 4:52 PM EDT Narrative Resulting Agency Comment Spec In Lab Que Amaro MD MICROBIOLOGY - GENERAL ORDERABLES Performing Organization Address [facility] de Phone Number [facility] [place] [address] * Differential, Automated (02/02/2016 8:09 AM EDT) Pathologist [facility] Neutrophil % 64.2 % [facility] Neutrophil Absolute 4.23 1.50 - 6.30 x10(3)/[facility] Lymph % 21.4 % [facility] Lymphocytes Abs 1.4 1.0 - 3.6 x10(3)/[facility] Monocyte % 7.1 % [facility] Monocyte Abs 0.5 0.2 - 1.0 x10(3)/[facility] Eos % 5.8 % [facility] Eosinophils Abs 0.4 0.0 - 0.5 x10(3)/[facility] Basophil % 1.2 % [facility] Baso Absolute 0.1 0.0 - 0.2 x10(3)/[facility] Immature Gran % 0.30 % [facility] Comment: Immature granulocytes(IG's)percentage and absolute count will include metamyelocytes, myelocytes, and promyelocytes. Blood smears from CBCs yielding IG's will be scanned manually for concordance. If this scan disagrees with the automated IG or if promyelocytes are noted, a manual differential will be performed. Immature Gran Absolute 0.02 0.00 - 0.05 x10(3)/[facility] Blood specimen (specimen) 02/02/2016 8:09 AM EDT 02/02/2016 8:28 AM EDT Narrative Resulting Agency Comment Spec In Lab Que Amaro MD HEMATOLOGY ORD ERABLES Performing Organization Address City/State/[facility] Co de Phone Number [facility] [place] [address] * (ABNORMAL) Hemogram (02/02/2016 8:09 AM EDT) White Blood Cell 6.6 4.0 - 10.0 x10(3)/ L [facility] Red Blood Cell 4.66 4.63 - 6.08 x10(6)/[facility] LAB[facility] Hemoglobin 15.2 13.7 - 17.5 gm/dL [facility] Hematocrit 42.2 40.0 - 51.0 % [facility] Mean Cell Volume 90.6 79.0 - 92.0 fL [facility] Mean Cell Hemoglobin 32.6(H) 25.6 - 32.2 pg [facility] Mean Cell Hemoglobin Concentration 36.0 32.0 - 36.5 gm/dL [facility] Platelet 202 145 - 370 x10(3)/ L [facility] RDW Standard Deviation 47.8(H) 35.0 - 46.0 fL [facility] RDW coefficient of variation 14.5(H) 10.9 - 14.4 % [facility] Mean Platelet Volume 9.4 9.0 - 12.0 fL [facility] NRBC% auto 0.0 % [facility] NRBC Absolute 0.000 0.000 - 0.012 x10(3)/mc L [facility] Blood specimen (specimen) 02/02/2016 8:09 AM EDT 02/02/2016 8:28 AM EDT Narrative Resulting Agency Comment Spec In Lab Que Amaro MD HEMATOLOGY ORD ERABLES Performing Organization Address [facility] Co de Phone Number [facility] [place] [address] * Phosphorus (02/02/2016 4:43 AM EDT) Phosphorus 2.8 2.5 - 4.5 mg/dL [facility] Blood specimen (specimen) 02/02/2016 4:43 AM EDT 02/02/2016 4:56 AM EDT Narrative Resulting Agency Comment Spec In Lab Que Aamro MD CHEMISTRY ORDE RABLENORE Performing Organization Address [facility] Co de Phone Number [facility] [place] [address] * (ABNORMAL) Magnesium (02/02/2016 4:43 AM EDT) Magnesium 0.62(L) 0.69 - 1.07 mmol/L [facility] Blood specimen (specimen) 02/02/2016 4:43 AM EDT 02/02/2016 4:56 AM EDT Narrative Resulting Agency Comment Spec In Lab Que Amaro MD CHEMISTRY ORDE DICK Performing Organization Address [facility] Co de Phone Number [facility] [place] [address] * Blood culture (02/02/2016 4:43 AM EDT) Blood Culture No growth at 5 days. [facility] Blood specimen (specimen) 02/02/2016 4:43 AM EDT 02/02/2016 9:01 AM EDT Comment:RH Narrative Resulting Agency Comment Spec In Lab Que Amaro MD MICROBIOLOGY - BLOOD ORDERABLES [facility] [place] [address] * (ABNORMAL) Basic Metabolic Panel (non-fasting) (02/02/2016 4:43 AM EDT) Pathologist [facility] Glucose 138 65 - 199 mg/dL [facility] Comment:Diabetes: >=200 mg/d L plus symptoms Blood Urea Nitrogen 13 10 - 20 mg/dL [facility] Creatinine 1.38 0.80 - 1.50 mg/dL [facility] Comment: Please note that the pediatric reference intervals supplied above were not validated at [facility]. Results from pediatric patients should be interpreted [...] 15 mmol/L [facility] Calcium 9.2 8.5 - 10.5 mg/dL [facility] Est Glomerular Filtration Rate 51(L) >=60 [facility] Comment: This [...] the following links into your internet browser. [email or web address] Blood specimen (specimen) 02/02/2016 4:43 AM EDT 02/02/2016 4:56 AM EDT Narrative Resulting Agency Comment Spec In Lab Que Amaro MD CHEMISTRY ORDBhargav JENNINGS Performing Organization Address [facility] de Phone Number [facility] [place] [address] * Vancomycin, trough (02/01/2016 10:32 PM EDT) [facility] Vancomycin, Trough 9.6 mg/L [facility] Comment: Therapeutic range for complicated infections such as bacteremia, endocarditis, osteomyelitis, meningitis, and hospital-acquired pneumonia caused by S. aureus: 15-20 mg/L Therapeutic range for other indications: 10-15 mg/L Toxic: >25 mg/L Reference: Vancomycin Therapeutic Monitoring: Review and Recommendations from the ASHP, IDSA and SIDP Task Force. ??Am J Health-Syst Pharm. 2009; 66:82-98 Blood specimen (specimen) 02/01/2016 10:32 PM EDT 02/01/2016 10:36 PM EDT Narrative Resulting Agency Comment Spec In Lab Madhu Eagle MD CHEMISTRY ORDERAB LES Performing Organization Address [facility] Co de Phone Number [facility] [place] [address] * IR all procedures (02/01/2016 11:37 AM EDT) Anatomical Region Laterality Modality Abdomen X-Ray Angiograph y Narrative 02/01/2016 1:09 PM EDT IR Procedure Note? Procedure: LLQ transplant ureteroplasty and nephroureterostomy tube exchange. ?? 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 He continues to void and double void in order to avoid over distension of his bladder. PCN was placed 12/29/2015, converted to nephroureteral catheter after ureteral balloon dilatation on 12/31. Pt reports today for repeat ureteroplasty and exchange of nephroureteral tube. ?? Technique: Informed consent was obtained after the risks, benefits and complications of the procedure were all explained. Due to the painful nature of the procedure, patient was sedated by the IR nurse with split doses of fentanyl and versed. ?? Maximum sterile barrier precautions were used throughout the procedure. The patient was prepped and draped in supine position. Manager [employer] image obtained. ??7 cc 1% lidocaine SQ anesthesia administered. The catheter was cut and an 0.035 Billings wire was placed in the bladder and the catheter was removed. A 7 Fr sheath was placed into the renal collecting system. Contrast injected and spot image showed minimal contrast passage into the bladder and a focal stenosis in the mid ureter. ??Over the wire, a 7 mm angioplasty balloon advanced, and stricture dilated (20 opal x 3 min x 3 overlapping inflations). Contrast injection showed improved antegrade flow through the ureter. ??Over the wire, a 10.2 Fr nephroureterostomy tube placed (a internal-external biliary drain was used; locking loop distal, with sideholes extending back into renal collecting system across the stricture.) ??Catheter sutured to skin and left to gravity drainage bag. ?? Medication: 1% lidocaine-7 cc's, Fentanyl 100 mcg IV, Versed 2 mg IV Contrast: 12 cc non-ionic/omnipaque Fluoroscopy time: 6 min EBL: 0 cc ? 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 Balloon dilated to 7 mm without waist, and up-sized 10.2 Fr nephroureterostomy placed. Plan: Repeat ureteroplasty in 2-4 weeks. ?? Fellow: Jaylin Moreira, DO Attending: ??Jade Nelson MD (I was present and scrubbed for the entire procedure) ? Que Amaro MD IMG IR ORDERAB LES * Tacrolimus level (02/01/2016 8:16 AM EDT) Tacrolimus 5.8 ng/mL [facility] Comment: Trough therapeutic: ??5-15 ng/mL Performed by ultra-performance liquid chromatography tandem mass spectrometry (UPLCMS/MS). Blood specimen (specimen) 02/01/2016 8:16 AM EDT 02/01/2016 11:00 AM EDT Narrative Resulting Agency Comment Spec In Lab Que Amaro MD CHEMISTRY ORDBhargav JENNINGS [facility] [place] [address] * Differential, Automated (02/01/2016 5:35 AM EDT) Neutrophil % 59.3 % [facility] Neutrophil Absolute 4.05 1.50 - 6.30 x10(3)/[facility] Lymph % 22.3 % [facility] Lymphocytes Abs 1.5 1.0 - 3.6 x10(3)/[facility] Monocyte % 11.7 % [facility] Monocyte Abs 0.8 0.2 - 1.0 x10(3)/[facility] Eos % 5.0 % [facility] Eosinophils Abs 0.3 0.0 - 0.5 x10(3)/[facility] Basophil % 1.3 % [facility] Baso Absolute 0.1 0.0 - 0.2 x10(3)/[facility] Immature Gran % 0.40 % [facility] Comment: Immature granulocytes(IG's)percentage and absolute count will include metamyelocytes, myelocytes, and promyelocytes. Blood smears from CBCs yielding IG's will be scanned manually for concordance. If this scan disagrees with the automated IG or if promyelocytes are noted, a manual differential will be performed. Immature Gran Absolute 0.03 0.00 - 0.05 x10(3)/mcL [facility] Blood specimen (specimen) 02/01/2016 5:35 AM EDT 02/01/2016 6:03 AM EDT Narrative Resulting Agency Comment Spec In Lab Que Amaro MD HEMATOLOGY ORD ERABLES [facility] [place] [address] * (ABNORMAL) Hemogram (02/01/2016 5:35 AM EDT) White Blood Cell 6.8 4.0 - 10.0 x10(3)/mc L [facility] Red Blood Cell 4.52(L) 4.63 - 6.08 x10(6)/[facility] Hemoglobin 14.3 13.7 - 17.5 gm/dL [facility] Hematocrit 41.3 40.0 - 51.0 % [facility] Mean Cell Volume 91.4 79.0 - 92.0 fL [facility] Mean Cell Hemoglobin 31.6 25.6 - 32.2 pg [facility] Mean Cell Hemoglobin Concentration 34.6 32.0 - 36.5 gm/dL [facility] Platelet 161 145 - 370 x10(3)/ L [facility] RDW Standard Deviation 48.5(H) 35.0 - 46.0 fL [facility] RDW coefficient of variation 14.5(H) 10.9 - 14.4 % [facility] Mean Platelet Volume 9.7 9.0 - 12.0 fL [facility] NRBC% auto 0.0 % [facility] NRBC Absolute 0.000 0.000 - 0.012 x10(3)/ L [facility] Blood specimen (specimen) 02/01/2016 5:35 AM EDT 02/01/2016 6:03 AM EDT Narrative Resulting Agency Comment Spec In Lab Que Amaro MD HEMATOLOGY ORD ERABLES [facility] [place] [address] * (ABNORMAL) Blood culture (02/01/2016 5:35 AM EDT) Blood Culture Coagulase negative Staphylococcus species isolated Isolate saved. If future testing is required, contact the Microbiology [facility]. (A) [facility] Gram Stain Aerobic Growth detected in aerobic bottle. Gram Positive Cocci in clusters seen (A) [facility] Organism Coagulase negative Staphylococcus species(A) [facility] Organism Gram Positive Cocci in clusters(A) [facility] Blood specimen (specimen) STRUCTURE OF RIGHT HAND / Unknown 02/01/2016 5:35 AM EDT 02/01/2016 6:05 AM EDT Narrative Resulting Agency Comment Spec [...] Coagulase Negative Staphylococcus species Ciprofloxacin MICROSCAN METHOD Sensitive Coagulase Negative Staphylococcus species Clindamycin MICROSCAN METHOD Sensitive Coagulase Negative Staphylococcus species Erythromycin MICROSCAN METHOD Resistant Coagulase Negative Staphylococcus species Gentamicin MICROSCAN METHOD Sensitive Comment:Gentamicin i s not appropriate for Hettinger-therapy. Coagulase Negative Staphylococcus species Levofloxacin MICROSCAN METHOD Sensitive Coagulase Negative Staphylococcus species Oxacillin MICROSCAN METHOD Resistant Coagulase Negative Staphylococcus species Penicillin MICROSCAN METHOD Resistant Coagulase Negative Staphylococcus species Tetracycline MICROSCAN METHOD Sensitive Coagulase Negative Staphylococcus species Trimethoprim/Sulfa MICROSCAN METHOD Sensitive Coagulase Negative Staphylococcus species Vancomycin MICROSCAN METHOD Sensitive Que Amaro MD MICROBIOLOGY - BLOOD ORDERABLES Performing Organization Address City/[facility]/ZIP Co de Phone Number [facility] [place] [address] * (ABNORMAL) Basic Metabolic Panel (non-fasting) (02/01/2016 5:35 AM EDT) Glucose 138 65 - 199 mg/dL [facility] Comment:Diabetes: >=200 mg/d L plus symptoms Blood Urea Nitrogen 9(L) 10 - 20 mg/dL [facility] Creatinine 1.42 0.80 - 1.50 mg/dL [facility] Comment: Please note that the pediatric reference intervals supplied above were not validated at [facility]. Results from pediatric patients should be interpreted [...] [facility] Est Glomerular Filtration Rate 50(L) >=60 [facility] Comment: This [...] the following links into your internet browser. [email or web address] Blood specimen (specimen) 02/01/2016 5:35 AM EDT 02/01/2016 6:03 AM EDT Narrative Resulting Agency Comment Spec In Lab Que Amaro MD CHEMISTRY ORDBhargav JENNINGS Performing Organization Address City/[facility]/ZIP Co de Phone Number [facility] [place] [address] * Phosphorus (02/01/2016 5:35 AM EDT) Pathologist [facility] Phosphorus 2.7 2.5 - 4.5 mg/dL [facility] Blood specimen (specimen) 02/01/2016 5:35 AM EDT 02/01/2016 6:03 AM EDT Narrative Resulting Agency Comment Spec In Lab Que Amaro MD CHEMISTRY ROCHELLE JENNINGS Performing Organization Address [facility] Co de Phone Number [facility] [place] [address] * Magnesium (02/01/2016 5:35 AM EDT) Pathologist [facility] Magnesium 0.70 0.69 - 1.07 mmol/L [facility] Blood specimen (specimen) 02/01/2016 5:35 AM EDT 02/01/2016 6:03 AM EDT Narrative Resulting Agency Comment Spec In Lab Que Amaro MD CHEMISTRY ROCHELLE JENNINGS Performing Organization Address City/[facility] Co de Phone Number [facility] [place] [address] * Hepatic Function Panel (02/01/2016 5:35 AM EDT) Protein, Total 6.8 6.1 - 8.0 gm/dL [facility] Albumin 3.6 3.2 - 5.2 gm/dL [facility] Aspartate Aminotransferase 18 0 - 39 unit/L [facility] Alanine Aminotransferase 14 0 - 55 unit/L [facility] Alkaline Phosphatase 52 40 - 120 unit/L [facility] Bilirubin, Total 1.3 0.2 - 1.3 mg/dL [facility] Bilirubin, Direct 0.2 0.0 - 0.3 mg/dL [facility] Blood specimen (specimen) 02/01/2016 5:35 AM EDT 02/01/2016 6:03 AM EDT Narrative Resulting Agency Comment Spec In Lab Que Amaro MD CHEMISTRY ORDE RABLENORE Performing Organization Address [facility] Co de Phone Number [facility] [place] [address] * APTT (02/01/2016 5:35 AM EDT) Partial Thromboplastin Time 29 25 - 35 sec [facility] Comment: The recommended therapeutic range for full dose, unfractionated heparin at [facility] is 80 ? 114 seconds. The use of the anti-Xa (heparin) level rather than the PTT is recommended for monitoring anticoagulation intensity in critically ill patients receiving unfractionated heparin by continuous IV infusion. Blood specimen (specimen) 02/01/2016 5:35 AM EDT 02/01/2016 6:03 AM EDT Narrative Resulting Agency Comment Spec In Lab Que Amaro MD HEMATOLOGY ORD ERABLES Performing Organization Address [facility] Co de Phone Number [facility] [place] [address] * Prothrombin Time (02/01/2016 5:35 AM EDT) Prothrombin Time 13.5 12.0 - 15.0 sec [facility] Comment: An INR <2.0 indicates [...] International Normalization Ratio 1.0 0.9 - 1.1 [facility] Blood specimen (specimen) 02/01/2016 5:35 AM EDT 02/01/2016 6:03 AM EDT Narrative Resulting Agency Comment Spec In Lab Que Amaro MD HEMATOLOGY ORD ERABLES [facility] [place] [address] * Blood culture (01/31/2016 12:28 AM EDT) Blood Culture No growth at 5 days. [facility] Blood specimen (specimen) STRUCTURE OF RIGHT FOREARM / Unknown 01/31/2016 12:28 AM EDT 01/31/2016 3:02 AM EDT Narrative Resulting Agency Comment Spec In Lab Que Amaro MD MICROBIOLOGY - BLOOD ORDERABLES Performing Organization Address City/[facility]/ZIP Co de Phone Number [facility] [place] [address] * BK Quant Blood Result (01/31/2016 12:12 AM EDT) BKV Blood Result Not Detected [...] DNA isolated from plasma was performed using [employer] BKV (ASR) reagents and the [employer] Stampsy 7500 FAST Real-Time PCR System. In addition, the ??PCR product sequence is confirmed using physical properties (melting curve analysis). This test was developed and its performance determined by the [facility]. It has not been [...] testing. [facility] Comment: [VERIFIED DATE]02.11.16 Verified By:Nella Evans (Electronic Signature) Blood specimen (specimen) 01/31/2016 12:12 AM EDT 01/31/2016 9:34 AM EDT Narrative Resulting Agency Comment Spec In Lab Que Amaro MD HEMATOLOGY ORD ERABLES Performing Organization Address City/[facility]/ZIP Co de Phone Number [facility] [place] [address] * Antibody screen (01/31/2016 12:12 AM EDT) Ab Screen Interp Negative [facility] Expires at [id number] on: 02/03/2016 [facility] Blood specimen (specimen) 01/31/2016 12:12 AM EDT 01/31/2016 12:45 AM EDT Narrative Resulting Agency Comment Spec In Lab Que Amaro MD BLOOD BANK LAB ORDERABLES Performing Organization Address City/[facility]/ZIP Co de Phone Number [facility] [place] [address] * ABO/Rh Typing (01/31/2016 12:12 AM EDT) ABORH Type AB Pos [facility] Blood specimen (specimen) 01/31/2016 12:12 AM EDT 01/31/2016 12:45 AM EDT Narrative Resulting Agency Comment Spec In Lab Que Amaro MD BLOOD BANK LAB ORDERABLES Performing Organization Address City/[facility]/ZIP Co de Phone Number [facility] [place] [address] * Differential, Automated (01/31/2016 12:12 AM EDT) Neutrophil % 70.8 % [facility] Neutrophil Absolute 4.50 1.50 - 6.30 x10(3)/mcL [facility] Lymph % 15.9 % [facility] Lymphocytes Abs 1.0 1.0 - 3.6 x10(3)/[facility] Monocyte % 10.8 % [facility] Monocyte Abs 0.7 0.2 - 1.0 x10(3)/[facility] Eos % 1.4 % [facility] Eosinophils Abs 0.1 0.0 - 0.5 x10(3)/[facility] Basophil % 0.6 % [facility] Baso Absolute 0.0 0.0 - 0.2 x10(3)/[facility] Immature Gran % 0.50 % [facility] Comment: Immature granulocytes(IG's)percentage and absolute count will include metamyelocytes, myelocytes, and promyelocytes. Blood smears from CBCs yielding IG's will be scanned manually for concordance. If this scan disagrees with the automated IG or if promyelocytes are noted, a manual differential will be performed. Immature Gran Absolute 0.03 0.00 - 0.05 x10(3)/[facility] Blood specimen (specimen) 01/31/2016 12:12 AM EDT 01/31/2016 12:37 AM EDT Narrative Resulting Agency Comment Spec In Lab Que Amaro MD HEMATOLOGY ORD ERABLES [facility] [place] [address] * (ABNORMAL) Hemogram (01/31/2016 12:12 AM EDT) White Blood Cell 6.4 4.0 - 10.0 x10(3)/ L [facility] Red Blood Cell 4.34(L) 4.63 - 6.08 x10(6)/ L [facility] Hemoglobin 14.1 13.7 - 17.5 gm/dL [facility] Hematocrit 39.8(L) 40.0 - 51.0 % [facility] Mean Cell Volume 91.7 79.0 - 92.0 fL [facility] Mean Cell Hemoglobin 32.5(H) 25.6 - 32.2 pg [facility] Mean Cell Hemoglobin Concentration 35.4 32.0 - 36.5 gm/dL [facility] Platelet 140(L) 145 - 370 x10(3)/mc L [facility] RDW Standard Deviation 48.9(H) 35.0 - 46.0 fL [facility] RDW coefficient of variation 14.3 10.9 - 14.4 % [facility] Mean Platelet Volume 10.0 9.0 - 12.0 fL [facility] NRBC% auto 0.0 % [facility] NRBC Absolute 0.000 0.000 - 0.012 x10(3)/mc L [facility] Blood specimen (specimen) 01/31/2016 12:12 AM EDT 01/31/2016 12:37 AM EDT Narrative Resulting Agency Comment Spec In Lab Que Amaro MD HEMATOLOGY ORD ERABLES Performing Organization Address City/[facility]/ZIP Co de Phone Number [facility] [place] [address] * Blood culture (01/31/2016 12:12 AM EDT) [facility] Blood Culture No growth at 5 days. [facility] Blood specimen (specimen) RIGHT ELBOW REGION STRUCTURE / Unknown 01/31/2016 12:12 AM EDT 01/31/2016 3:01 AM EDT Narrative Resulting Agency Comment Spec In Lab Que Amaro MD MICROBIOLOGY - BLOOD ORDERABLES Performing Organization Address [facility] Co de Phone Number [facility] [place] [address] * (ABNORMAL) Hepatic Function Panel (01/31/2016 12:12 AM EDT) Protein, Total 6.6 6.1 - 8.0 gm/dL [facility] Albumin 3.6 3.2 - 5.2 gm/dL [facility] Aspartate Aminotransferase 20 0 - 39 unit/L [facility] Alanine Aminotransferase 15 0 - 55 unit/L [facility] Alkaline Phosphatase 59 40 - 120 unit/L [facility] Bilirubin, Total 1.4(H) 0.2 - 1.3 mg/dL [facility] Bilirubin, Direct 0.3 0.0 - 0.3 mg/dL [facility] Blood specimen (specimen) 01/31/2016 12:12 AM EDT 01/31/2016 12:37 AM EDT Narrative Resulting Agency Comment Spec In Lab Que Amaro MD CHEMISTRY ROCHELLE JENNINGS Performing Organization Address [facility]/ZIP Co de Phone Number [facility] [place] [address] * (ABNORMAL) Phosphorus (01/31/2016 12:12 AM EDT) Phosphorus 2.2(L) 2.5 - 4.5 mg/dL [facility] Blood specimen (specimen) 01/31/2016 12:12 AM EDT 01/31/2016 12:37 AM EDT Narrative Resulting Agency Comment Spec In Lab Que Amaro MD CHEMISTRY ORDBhargav JENNINGS [facility] [place] [address] * (ABNORMAL) Magnesium (01/31/2016 12:12 AM EDT) Magnesium 0.65(L) 0.69 - 1.07 mmol/L [facility] Blood specimen (specimen) 01/31/2016 12:12 AM EDT 01/31/2016 12:37 AM EDT Narrative Resulting Agency Comment Spec In Lab Que Amaro MD CHEMISTRY ROCHELLE JENNINGS [facility] [place] [address] * (ABNORMAL) Basic Metabolic Panel (non-fasting) (01/31/2016 12:12 AM EDT) Glucose 189 65 - 199 mg/dL [facility] Comment:Diabetes: >=200 mg/d L plus symptoms Blood Urea Nitrogen 14 10 - 20 mg/dL [facility] Creatinine 1.55(H) 0.80 - 1.50 mg/dL [facility] Comment: Please note that the pediatric reference intervals supplied above were not validated at [facility]. Results from pediatric patients should be interpreted [...] questions. Chloride 99 98 - 107 mmol/L [facility] Carbon Dioxide 23 22 - 31 mmol/L [facility] Anion Gap 14 5 - 15 mmol/L [facility] Calcium 8.6 8.5 - 10.5 mg/dL [facility] Est Glomerular Filtration Rate 45(L) [...] the following links into your internet browser. [email or web address] Blood specimen (specimen) 01/31/2016 12:12 AM EDT 01/31/2016 12:37 AM EDT Narrative Resulting Agency Comment Spec In Lab Que Amaro MD CHEMISTRY ORDE RABLENORE Performing Organization Address [facility] Co de Phone Number [facility] [place] [address] * APTT (01/31/2016 12:12 AM EDT) Partial Thromboplastin Time 30 25 - 35 sec [facility] Comment: The recommended therapeutic range for full dose, unfractionated heparin at [facility] is 80 ? 114 seconds. The use of the anti-Xa (heparin) level rather than the PTT is recommended for monitoring anticoagulation intensity in critically ill patients receiving unfractionated heparin by continuous IV infusion. Blood specimen (specimen) 01/31/2016 12:12 AM EDT 01/31/2016 12:37 AM EDT Narrative Resulting Agency Comment Spec In Lab Que Amaro MD HEMATOLOGY ORD ERABLES Performing Organization Address [facility] de Phone Number [facility] [place] [address] * Prothrombin Time (01/31/2016 12:12 AM EDT) Prothrombin Time 13.8 12.0 - 15.0 sec [facility] Comment: An INR <2.0 indicates [...] International Normalization Ratio 1.0 0.9 - 1.1 [facility] Blood specimen (specimen) 01/31/2016 12:12 AM EDT 01/31/2016 12:37 AM EDT Narrative Resulting Agency Comment Spec In Lab Que Amaro MD HEMATOLOGY ORD ERABLES Performing Organization Address City/[facility]/ZIP Co de Phone Number [facility] [place] [address] * (ABNORMAL) Urinalysis with reflex Culture (01/31/2016 12:04 AM EDT) Glucose, Urine Dipstick 50(A) Negative mg/dL [facility] Protein, [...] HOSPITAL LABORATORY Leukocytes, Urine Dipstick Negative Negative [facility] Appearance, Urine Dipstick Clear Clear [facility] Specific Lagrange Urine Automated 1.010 1.002 - 1.030 [facility] Color, Urine Dipstick Straw Yellow [facility] RBC, Urine 7(H) 0 - 3 /HPF [facility] WBC, Urine 2 0 - 3 /HPF [facility] Reflex to Culture No [facility] Urine specimen from nephrostomy tube (specimen) 01/31/2016 12:04 AM EDT 01/31/2016 12:36 AM EDT Narrative Resulting Agency Comment Spec In Lab Que Amaro MD URINE ORDERABL ES Performing Organization Address City/[facility]/ZIP Co de Phone Number [facility] [place] [address] * (ABNORMAL) Urinalysis with reflex Culture (01/31/2016 12:03 AM EDT) Glucose, Urine Dipstick 50(A) Negative mg/dL [facility] Protein, [...] [facility] Leukocytes, Urine Dipstick Trace(A) Negative [facility] Appearance, Urine Dipstick Clear Clear [facility] Specific [place] Urine Automated 1.011 1.002 - 1.030 [facility] Color, Urine Dipstick Straw Yellow [facility] RBC, Urine 3 0 - 3 /HPF [facility] WBC, Urine 2 0 - 3 /HPF [facility] Squamous Epithelial Cells, Urine <1 <=4 /HPF [facility] Reflex to Culture Dup Culture [facility] Urine specimen obtained by clean catch procedure (specimen) 01/31/2016 12:03 AM EDT 01/31/2016 12:36 AM EDT Narrative Resulting Agency Comment Spec In Lab Que Amaro MD URINE ORDERABL ES [facility] [place] [address] * XR Chest PA & Lateral (Generic) (01/30/2016 3:09 PM EDT) Anatomical Region Laterality Modality Chest N/A Digital Radiogra phy Impressions 01/30/2016 3:21 PM EDT No pneumonia or other acute cardiopulmonary process. Narrative 01/30/2016 3:21 PM EDT EXAMINATION: XR CHEST ROUTINE PA AND LATERAL CLINICAL HISTORY: Fevers in immunosuppressed patient, rule out pneumonia TECHNIQUE: Standing PA and lateral chest COMPARISON: 12/07/2015 FINDINGS: There is no interval change. In particular, the lungs remain clear. Cardial mediastinal silhouette and nelly appear normal. No pleural effusion or other acute finding is seen. Procedure Note Edinson Woo MD - 01/30/2016 EXAMINATION: XR CHEST ROUTINE PA AND LATERAL CLINICAL HISTORY: Fevers in immunosuppressed patient, rule out pneumonia TECHNIQUE: Standing PA and lateral chest COMPARISON: 12/07/2015 FINDINGS: There is no interval change. In particular, the lungs remain clear.Cardial mediastinal silhouette and nelly appear normal. No pleural effusion orother acute finding is seen. IMPRESSION No pneumonia or other acute cardiopulmonary process. Que Amaro MD IMG DX ORDERAB LES * CMV PCR, Quantitative (01/30/2016 10:43 AM EDT) CMV Quant (Numeric) <137 IU/mL [facility] CMV Quant (Interp) Result: Not Detected Sample: plasma Method: This quantitative real-time PCR assay was performed in the [facility] Molecular Pathology Laboratory using ??NIK?? AmpliPrep/NIK? ? TaqMan?? CMV Test ([employer] Linear Range: 137 IU/mL - 9,100,000 IU/mL (2.14 log ? 6.96 log IU/mL) Limit of Detection: 91 IU/mL (1.96 log IU/mL) [facility] Blood specimen (specimen) 01/30/2016 10:43 AM EDT 02/01/2016 3:06 PM EDT Narrative Resulting Agency Comment Spec In Lab Que Amaro MD MOLECULAR ROCHELLE JENNINGS Performing Organization Address City/[facility]/ZIP [place] [address] * (ABNORMAL) Differential, Automated (01/30/2016 7:42 AM EDT) Neutrophil % 76.1 % [facility] Neutrophil Absolute 5.24 1.50 - 6.30 x10(3)/mc L [facility] Lymph % 11.3 % [facility] Lymphocytes Abs 0.8(L) 1.0 - 3.6 x10(3)/ L [facility] Monocyte % 11.3 % [facility] Monocyte Abs 0.8 0.2 - 1.0 x10(3)/ L [facility] Eos % 0.4 % [facility] Eosinophils Abs 0.0 0.0 - 0.5 x10(3)/ L [facility] Basophil % 0.6 % [facility] Baso Absolute 0.0 0.0 - 0.2 x10(3)/ L [facility] Immature Gran % 0.30 % [facility] Comment: Immature granulocytes(IG's)percentage and absolute count will include metamyelocytes, myelocytes, and promyelocytes. Blood smears from CBCs yielding IG's will be scanned manually for concordance. If this scan disagrees with the automated IG or if promyelocytes are noted, a manual differential will be performed. Immature Gran Absolute 0.02 0.00 - 0.05 x10(3)/ L [facility] Blood specimen (specimen) 01/30/2016 7:42 AM EDT 01/30/2016 7:53 AM EDT Narrative Resulting Agency Comment Spec In Lab Madhu Eagle MD HEMATOLOGY ORDERA BLES Performing Organization Address City/[facility]/ZIP Co de Phone Number [facility] [place] [address] * (ABNORMAL) Hemogram (01/30/2016 7:42 AM EDT) White Blood Cell 6.9 4.0 - 10.0 x10(3)/ L [facility] Red Blood Cell 4.48(L) 4.63 - 6.08 x10(6)/ L [facility] Hemoglobin 13.9 13.7 - 17.5 gm/dL [facility] Hematocrit 40.6 40.0 - 51.0 % [facility] Mean Cell Volume 90.6 79.0 - 92.0 fL [facility] Mean Cell Hemoglobin 31.0 25.6 - 32.2 pg [facility] Mean Cell Hemoglobin Concentration 34.2 32.0 - 36.5 gm/dL [facility] Platelet 145 145 - 370 x10(3)/[facility] RDW Standard Deviation 48.1(H) 35.0 - 46.0 fL [facility] RDW coefficient of variation 14.6(H) 10.9 - 14.4 % [facility] Mean Platelet Volume 9.1 9.0 - 12.0 fL [facility] NRBC% auto 0.0 % [facility] NRBC Absolute 0.000 0.000 - 0.012 x10(3)/[facility] Blood specimen (specimen) 01/30/2016 7:42 AM EDT 01/30/2016 7:53 AM EDT Narrative Resulting Agency Comment Spec In Lab Madhu Eagle MD HEMATOLOGY ORDERA BLES [facility] [place] [address] * (ABNORMAL) Phosphorus (01/30/2016 7:42 AM EDT) Pathologist [facility] Phosphorus 2.3(L) 2.5 - 4.5 mg/dL [facility] Blood specimen (specimen) 01/30/2016 7:42 AM EDT 01/30/2016 7:53 AM EDT Narrative Resulting Agency Comment Spec In Lab Madhu Eagle MD CHEMISTRY ORDERAB LES Performing Organization Address [facility] Co de Phone Number [facility] [place] [address] * (ABNORMAL) Magnesium (01/30/2016 7:42 AM EDT) Magnesium 0.63(L) 0.69 - 1.07 mmol/L [facility] Blood specimen (specimen) 01/30/2016 7:42 AM EDT 01/30/2016 7:53 AM EDT Narrative Resulting Agency Comment Spec In Lab Madhu Eagle MD CHEMISTRY ORDERAB LES Performing Organization Address [facility] Co de Phone Number [facility] [place] [address] * (ABNORMAL) Basic Metabolic Panel (non-fasting) (01/30/2016 7:42 AM EDT) Glucose 163 65 - 199 mg/dL [facility] Comment:Diabetes: >=200 mg/d L plus symptoms Blood Urea Nitrogen 17 10 - 20 mg/dL [facility] Creatinine 1.67(H) 0.80 - 1.50 mg/dL [facility] Comment: Please note that the pediatric reference intervals supplied above were not validated at [facility]. Results from pediatric patients should be interpreted [...] questions. Chloride 99 98 - 107 mmol/L [facility] Carbon Dioxide 24 22 - 31 mmol/L [facility] Anion Gap 14 5 - 15 mmol/L [facility] Calcium 8.8 8.5 - 10.5 mg/dL [facility] Est Glomerular Filtration Rate 41(L) >=60 [facility] Comment: This [...] the following links into your internet browser. [email or web address] Blood specimen (specimen) 01/30/2016 7:42 AM EDT 01/30/2016 7:53 AM EDT Narrative Resulting Agency Comment Spec In Lab Madhu Eagle MD CHEMISTRY ORDERAB LES Performing Organization Address City/[facility]/ZIP Co de Phone Number [facility] [place] [address] * Tacrolimus level (01/30/2016 7:42 AM EDT) Tacrolimus 6.2 ng/mL [facility] Comment: Trough therapeutic: ??5-15 ng/mL Performed by ultra-performance liquid chromatography tandem mass spectrometry (UPLCMS/MS). Blood specimen (specimen) 01/30/2016 7:42 AM EDT 01/30/2016 10:54 AM EDT Narrative Resulting Agency Comment Spec In Lab Madhu Eagle MD CHEMISTRY ORDERAB LES [facility] [place] [address] * (ABNORMAL) Urine culture Nephrostomy Urine (01/30/2016 1:21 AM EDT) Urine Culture Less than 1,000 cfu/mL Coagulase negative Staphylococcus species Susceptibility testing not routinely performed for Coagulase Negative Staphylococcus species and other Gram Positive organisms from urine. (A) [facility] Urine specimen from nephrostomy tube (specimen) 01/30/2016 1:21 AM EDT 01/30/2016 7:44 AM EDT Narrative Resulting Agency Comment Spec In Lab Que Amaro MD MICROBIOLOGY - GENERAL ORDERABLES [facility] [place] [address] * (ABNORMAL) Urinalysis with reflex Culture (01/30/2016 1:20 AM EDT) Glucose, Urine Dipstick Negative Negative [...] [facility] Leukocytes, Urine Dipstick Trace(A) Negative [facility] Appearance, Urine Dipstick Clear Clear [facility] Specific Lagrange Urine Automated 1.004 1.002 - 1.030 [facility] Color, Urine Dipstick Colorless Yellow [facility] RBC, Urine Not Present 0 - 3 /HPF [facility] WBC, Urine 1 0 - 3 /HPF [facility] Bacteria, Urine Rare(A) None /HPF [facility] Reflex to Culture Dup Culture [facility] Urine specimen from nephrostomy tube (specimen) 01/30/2016 1:20 AM EDT 01/30/2016 1:41 AM EDT Narrative Resulting Agency Comment Spec In Lab Que Amaro MD URINE ORDERABL ES [facility] [place] [address] * (ABNORMAL) Blood culture (01/30/2016 12:20 AM EDT) Blood Culture Coagulase negative Staphylococcus species isolated Isolate saved. If future testing is required, contact the Microbiology Rn Complex Care. (A) [facility] Gram Stain Aerobic Growth detected in aerobic bottle. Gram Positive Cocci in clusters seen Results called to and read back by Dr. Yessica De La Vega. (A) [facility] Organism Coagulase negative Staphylococcus species(A) [facility] Organism Gram Positive Cocci in clusters(A) [facility] Blood specimen (specimen) 01/30/2016 12:20 AM EDT 01/30/2016 1:47 AM EDT Narrative Resulting Agency Comment Spec [...] Resistant Comment:Gentamicin i s not appropriate for Hettinger-therapy. Coagulase Negative Staphylococcus species Levofloxacin MICROSCAN METHOD Resistant Coagulase Negative Staphylococcus species Oxacillin MICROSCAN METHOD Resistant Coagulase Negative Staphylococcus species Penicillin MICROSCAN METHOD Resistant Coagulase Negative Staphylococcus species Tetracycline MICROSCAN METHOD Sensitive Coagulase Negative Staphylococcus species Trimethoprim/Sulfa MICROSCAN METHOD Resistant Coagulase Negative Staphylococcus species Vancomycin MICROSCAN METHOD Sensitive Madhu Eagle MD MICROBIOLOGY - BL OOD ORDERABLES Performing Organization Address [facility]/ZIP Co de Phone Number [facility] [place] [address] * (ABNORMAL) Hepatic Function Panel (01/29/2016 11:37 PM EDT) [facility] Protein, Total 7.3 6.1 - 8.0 gm/dL [facility] Albumin 4.0 3.2 - 5.2 gm/dL [facility] Aspartate Aminotransferase 20 0 - 39 unit/L [facility] Alanine Aminotransferase 16 0 - 55 unit/L [facility] Alkaline Phosphatase 60 40 - 120 unit/L [facility] Bilirubin, Total 2.0(H) 0.2 - 1.3 mg/dL [facility] Bilirubin, Direct 0.4(H) 0.0 - 0.3 mg/dL [facility] Blood specimen (specimen) Venous Draw / Unknown 01/29/2016 11:37 PM EDT 01/29/2016 11:57 PM EDT Narrative Resulting Agency Comment Spec In Lab Madhu Eagle MD CHEMISTRY ORDERAB LES Performing Organization Address [facility] Co de Phone Number [facility] [place] [address] * (ABNORMAL) Differential, Automated (01/29/2016 11:37 PM EDT) [facility] Neutrophil % 80.0 % [facility] Neutrophil Absolute 6.02 1.50 - 6.30 x10(3)/mc L [facility] Lymph % 9.3 % [facility] Lymphocytes Abs 0.7(L) 1.0 - 3.6 x10(3)/mc L [facility] Monocyte % 9.2 % [facility] Monocyte Abs 0.7 0.2 - 1.0 x10(3)/mc L [facility] Eos % 0.3 % [facility] Eosinophils Abs 0.0 0.0 - 0.5 x10(3)/[facility] Basophil % 0.8 % [facility] Baso Absolute 0.1 0.0 - 0.2 x10(3)/[facility] Immature Gran % 0.40 % [facility] Comment: Immature granulocytes(IG's)percentage and absolute count will include metamyelocytes, myelocytes, and promyelocytes. Blood smears from CBCs yielding IG's will be scanned manually for concordance. If this scan disagrees with the automated IG or if promyelocytes are noted, a manual differential will be performed. Immature Gran Absolute 0.03 0.00 - 0.05 x10(3)/[facility] Blood specimen (specimen) 01/29/2016 11:37 PM EDT 01/29/2016 11:55 PM EDT Narrative Resulting Agency Comment Spec In Lab Madhu Eagle MD HEMATOLOGY ORDERA BLES [facility] [place] [address] * (ABNORMAL) Hemogram (01/29/2016 11:37 PM EDT) White Blood Cell 7.5 4.0 - 10.0 x10(3)/[facility] Red Blood Cell 4.66 4.63 - 6.08 x10(6)/[facility] Hemoglobin 14.4 13.7 - 17.5 gm/dL [facility] Hematocrit 41.6 40.0 - 51.0 % [facility] Mean Cell Volume 89.3 79.0 - 92.0 fL [facility] Mean Cell Hemoglobin 30.9 25.6 - 32.2 pg [facility] Mean Cell Hemoglobin Concentration 34.6 32.0 - 36.5 gm/dL [facility] Platelet 173 145 - 370 x10(3)/mc L [facility] RDW Standard Deviation 47.3(H) 35.0 - 46.0 fL [facility] RDW coefficient of variation 14.6(H) 10.9 - 14.4 % [facility] Mean Platelet Volume 9.8 9.0 - 12.0 fL [facility] NRBC% auto 0.0 % [facility] NRBC Absolute 0.000 0.000 - 0.012 x10(3)/mc L [facility] Blood specimen (specimen) 01/29/2016 11:37 PM EDT 01/29/2016 11:55 PM EDT Narrative Resulting Agency Comment Spec In Lab Madhu Eagle MD HEMATOLOGY ORDERA BLES [facility] [place] [address] * (ABNORMAL) Basic Metabolic Panel (non-fasting) (01/29/2016 11:37 PM EDT) Glucose 167 65 - 199 mg/dL [facility] Comment:Diabetes: >=200 mg/d L plus symptoms Blood Urea Nitrogen 18 10 - 20 mg/dL [facility] Creatinine 1.77(H) 0.80 - 1.50 mg/dL [facility] Comment: Please note that the pediatric reference intervals supplied above were not validated at [facility]. Results from pediatric patients should be interpreted in conjunction to the patient's age, height and muscle mass. Sodium 135 135 - 145 mmol/L [facility] Potassium 3.8 3.5 - 5.0 mmol/L [facility] [...] mmol/L [facility] Anion Gap 16(H) 5 - 15 mmol/L [facility] Calcium 9.3 8.5 - 10.5 mg/dL [facility] Est Glomerular Filtration Rate 39(L) >=60 [facility] Comment: This [...] the following links into your internet browser. [email or web address] Blood specimen (specimen) 01/29/2016 11:37 PM EDT 01/29/2016 11:55 PM EDT Narrative Resulting Agency Comment Spec In Lab Madhu Eagle MD CHEMISTRY ORDERAB LES Performing Organization Address City/[facility]/ZIP Co de Phone Number [facility] [place] [address] * (ABNORMAL) Phosphorus (01/29/2016 11:37 PM EDT) Phosphorus 2.1(L) 2.5 - 4.5 mg/dL [facility] Blood specimen (specimen) 01/29/2016 11:37 PM EDT 01/29/2016 11:55 PM EDT Narrative Resulting Agency Comment Spec In Lab Madhu Eagle MD CHEMISTRY ORDERAB LES [facility] [place] [address] * (ABNORMAL) Magnesium (01/29/2016 11:37 PM EDT) Magnesium 0.39(Criti raulito) 0.69 - 1.07 mmol/L [facility] Comment: Result rechecked. Called by: jed, Read back by: Magaly Cobian, Date/Time:01/30/16 00:33. Blood specimen (specimen) 01/29/2016 11:37 PM EDT 01/29/2016 11:55 PM EDT Narrative Resulting Agency Comment Spec In Lab Madhu Eagle MD CHEMISTRY ORDERAB LES [facility] [place] [address] * (ABNORMAL) Blood culture (01/29/2016 11:35 PM EDT) Blood Culture Coagulase negative Staphylococcus species detected by PCR Isolate saved. If future testing is required, contact the Microbiology Rn Complex Care. (A) [facility] Gram Stain Aerobic Growth detected in aerobic bottle. Gram Positive Cocci in clusters seen Results called to and read back by Dr. Yessica De La Vega. (A) [facility] Organism Coagulase negative Staphylococcus species(A) [facility] Organism Gram Positive Cocci in clusters(A) [facility] Blood specimen (specimen) 01/29/2016 11:35 PM EDT 01/30/2016 12:14 AM EDT Comment:R ARM Narrative Resulting Agency Comment Spec In Lab [...] Resistant Comment:Gentamicin i s not appropriate for Hettinger-therapy. Coagulase Negative Staphylococcus species Levofloxacin MICROSCAN METHOD Resistant Coagulase Negative Staphylococcus species Oxacillin MICROSCAN METHOD Resistant Coagulase Negative Staphylococcus species Penicillin MICROSCAN METHOD Resistant Coagulase Negative Staphylococcus species Tetracycline MICROSCAN METHOD Sensitive Coagulase Negative Staphylococcus species Trimethoprim/Sulfa MICROSCAN METHOD Resistant Coagulase Negative Staphylococcus species Vancomycin MICROSCAN METHOD Sensitive Madhu Eagle MD MICROBIOLOGY - BL OOD ORDERABLES Performing Organization Address City/State/[facility] Co de Phone Number [facility] [place] [address] * (ABNORMAL) Urinalysis with reflex Culture (01/29/2016 11:06 PM EDT) Glucose, Urine Dipstick Negative Negative [...] [facility] Leukocytes, Urine Dipstick Moderate(A) Negative mcL [facility] Appearance, Urine Dipstick Clear Clear [facility] Specific [place] Urine Automated 1.012 1.002 - 1.030 [facility] Color, Urine Dipstick Yellow Yellow [facility] RBC, Urine 2 0 - 3 /HPF [facility] WBC, Urine 11(H) 0 - 3 /HPF [facility] Reflex to Culture Dup Culture [facility] Urine specimen obtained by clean catch procedure (specimen) 01/29/2016 11:06 PM EDT 01/29/2016 11:36 PM EDT Narrative Resulting Agency Comment Spec In Lab Madhu Eagle MD URINE ORDERABLES [facility] [place] [address] documented in this encounter Visit Diagnoses Diagnosis Fever- Primary Fever, unspecified Kidney replaced by transplant Bacteremia ESRD (end stage renal disease) End stage renal disease HCV (hepatitis C virus) Unspecified viral hepatitis 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 hepatic coma DM type 2 (diabetes mellitus, type 2) Type II or unspecified type diabetes mellitus without mention of complication, not stated as uncontrolled Hypertension Unspecified essential hypertension Bacteremia due to coagulase-negative Staphylococcus Bacteremia documented in this encounter Admitting Diagnoses Diagnosis Bacteremia due to coagulase-negative Staphylococcus Bacteremia documented in this encounter Administered Medications Inactive Administered Medications - up to 3 most recent administrations Medication Order MAR Action Action Date Dose Rate Site acetaminophen (TYLENOL) tablet 650 mg 650 mg, Oral, EVERY 4 HOURS PRN, Starting on Thu01/30/16 at 0005, Until Thu02/05/16 at 1427, Pain, Maximum dose of acetaminophen is 4000 mg from all sources in 24 hours., Routine Given 02/05/2016 9:07 AM EDT 650 mg Given 02/04/2016 8:17 PM EDT 650 mg Given 02/03/2016 9:45 PM EDT 650 mg calciTRIol (ROCALTROL) capsule 0.5 mcg 0.5 mcg, Oral, DAILY, First dose on Thu01/30/16 at 0900, Until Discontinued, Routine Given 02/05/2016 9:05 AM EDT 0.5 mcg Given 02/04/2016 8:21 AM EDT 0.5 mcg Given 02/03/2016 8:51 AM EDT 0.5 mcg DILTiazem (DILTIAZEM CD) ER capsule 120 mg 120 mg, Oral, DAILY, First dose on Thu01/30/16 at 0900, Until Discontinued, DO NOT CRUSH OR OPEN, Routine Given 02/05/2016 9:05 AM EDT 120 mg Given 02/04/2016 8:21 AM EDT 120 mg Given 02/03/2016 8:51 AM EDT 120 mg fentaNYL 50 mcg/mL multi-dose injection 25-50 mcg, Intravenous, EVERY 5 MIN PRN, Starting on Thu02/01/16 at 0951, Until Thu02/01/16 at 1126, Pain, per unit protocol, - Start dose [...] and verbal order., Angio/IR (Intra-Procedure), Routine Given 02/01/2016 10:51 AM EDT 50 mcg Given 02/01/2016 10:40 AM EDT 50 mcg heparin (porcine) subcutaneous injection 5,000 Units 5,000 Units, Subcutaneous, EVERY 8 HOURS SCHEDULED, First dose on 02/02/16 at 1400, Until Discontinued, Routine Given 02/03/2016 2:56 PM EDT 5,000 Unit s Given 02/03/2016 5:49 AM EDT 5,000 Units Given 02/02/2016 9:32 PM EDT 5,000 Units hyaluronidase (ovine) (VITRASE) injection 1-10 mL 1-10 mL, Subcutaneous, ONCE, On Thu02/02/16 at 1230, 1 dose, Hyaluronidase is supplied in a 1-mL vial at a concentration of 200 units/mL. Dilute with 9 mL of normal saline. This yields the desired concentration of 20 units/mL. Draw up 1 mL increments of the diluted solution into a 1-mL syringe with a 26-g needle. Instill 0.2 -mL aliquots of the solution at least every 2 - 3 centimeters or five evenly spaced aliquots subcutaneously around the periphery of the infiltrated area. Use a new 26-gauge needle for each injection. This is best done within one hour of the extravasation. Discard the remaining solution. Given 02/02/2016 12:30 PM EDT 1.2 mLs iohexol (OMNIPAQUE) 350 mg/mL solution 17,500 mg 17,500 mg (50 mL), Other, ONCE PRN, 1 dose, Starting on Thu02/01/16 at 1138, Until Thu02/01/16 at 1138, Per Protocol, Warning Vesicant/Irritant Medication , Angio/IR (Intra-Procedure), Routine Given 02/01/2016 11:38 AM EDT 12 mLs levothyroxine (SYNTHROID) tablet 75 mcg 75 mcg, Oral, EVERY MORNING, First dose on Thu01/30/16 at 0600, Until Discontinued, Routine Given 02/05/2016 6:04 AM EDT 75 mcg Given 02/04/2016 6:31 AM EDT 75 mcg Given 02/03/2016 5:49 AM EDT 75 mcg lidocaine (XYLOCAINE) 10 mg/mL (1 %) injection 10 mg 10 mg, Subcutaneous, ONCE, 1 dose, On Thu02/01/16 at 1015, For use in Interventional Radiology (IR) only for procedure with direct provider supervision and verbal order., Angio/IR (Intra-Procedure), Routine Given 02/01/2016 10:52 AM EDT 10 mg magnesium oxide (MAG-OX) tablet 400 mg 400 mg, Oral, 3 TIMES DAILY, First dose on Thu01/30/16 at 2100, Until Discontinued, Routine Given 02/05/2016 9:04 AM EDT 400 mg Given 02/04/2016 8:18 PM EDT 400 mg Given 02/04/2016 3:37 PM EDT 400 mg magnesium sulfate 2 g in sterile water 50 mL 2 g, Intravenous, ONCE, 1 dose, On Thu01/30/16 at 0200, Administer over 120 Minutes, Minimum infusion duration is 2 hours. Given 01/30/2016 2:30 AM EDT 2 g 25 mL/hr magnesium sulfate 2 g in sterile water 50 mL 2 g, Intravenous, ONCE, 1 dose, On Thu01/30/16 at 1100, Administer over 120 Minutes Given 01/30/2016 12:21 PM EDT 2 g 25 mL/hr magnesium sulfate 2 g in sterile water 50 mL 2 g, Intravenous, ONCE, 1 dose, On Thu01/31/16 at 1200, Administer over 120 Minutes, Minimum infusion duration is 2 hours. Given 01/31/2016 11:23 AM EDT 2 g 25 mL/hr magnesium sulfate 2 g in sterile water 50 mL 2 g, Intravenous, ONCE, 1 dose, On Thu02/03/16 at 0900, Administer over 120 Minutes Given 02/03/2016 11:36 AM EDT 2 g 25 mL/hr midazolam (PF) (VERSED) 1 mg/mL multi-dose injection 0.5-1 mg 0.5-1 mg, Intravenous, EVERY 3 MIN PRN, Starting on Thu02/01/16 at 0951, Until Thu02/01/16 at 1126, Sleep, - Start dose; 1 mg (Reduce [...] and verbal order., Angio/IR (Intra-Procedure), Routine Given 02/01/2016 10:51 AM EDT 1 mg Given 02/01/2016 10:40 AM EDT 1 mg mycophenolate (CELLCEPT) capsule 250 mg 250 mg, Oral, 2 TIMES DAILY, First dose on Thu01/30/16 at 0900, Until Discontinued, DO NOT CRUSH OR OPEN, Routine Given 02/05/2016 9:05 AM EDT 250 mg Given 02/04/2016 8:18 PM EDT 250 mg Given 02/04/2016 8:21 AM EDT 250 mg ondansetron (ZOFRAN) injection 4 mg 4 mg, Intravenous, EVERY 8 HOURS PRN, Starting on Thu01/30/16 at 2019, Until Thu02/05/16 at 1427, Nausea Given 01/30/2016 8:46 PM EDT 4 mg pantoprazole (PROTONIX) tablet 40 mg 40 mg, Oral, DAILY, First dose (after last modification) on Thu01/30/16 at 2000, Until Discontinued, DO NOT CRUSH OR OPEN Given 02/05/2016 9:05 AM EDT 40 mg Given 02/04/2016 8:21 AM EDT 40 mg Given 02/03/2016 8:51 AM EDT 40 mg piperacillin-tazobactam (ZOSYN) 3.375 g in dextrose 5% 50 mL 3.375 g, Intravenous, EVERY 8 HOURS, First dose on Thu01/29/16 at 2330, Until Discontinued, Administer over 4 Hours, Warning Vesicant/Irritant Medication , Indication for (Active or Suspected): Urinary Tract/Pyelonephritis Given 02/01/2016 3:01 PM EDT 3.375 g 12.5 mL/hr Given 02/01/2016 8:17 AM EDT 3.375 g 12.5 mL/hr Given 01/31/2016 11:48 PM EDT 3.375 g 12.5 mL/hr potassium chloride (K-DUR/KLOR-CON) extended release tablet 40 mEq 40 mEq, Oral, ONCE, 1 dose, On Thu02/03/16 at 0900, 20 mEq tablet may be dissolved in water for administration, Routine Given 02/03/2016 8:51 AM EDT 40 mEq potassium phosphate (monobasic) (K-PHOS) tablet 1,000 mg 1,000 mg, Oral, 2 TIMES DAILY, First dose on Thu01/30/16 at 0900, Until Discontinued, Please dose at least two hours apart from oral magnesium replacement. Dissolve tablets in 6-8 oz of water; for best results, soak tablets in water for 2-5 minutes, then stir and give to patient., Routine Given 02/05/2016 11:04 AM EDT 1,000 mg Given 02/04/2016 11:10 PM EDT 1,000 mg Given 02/04/2016 11:45 AM EDT 1,000 mg potassium phosphate 10 mMol in sodium chloride 0.9% 100 mL 10 mmol, Intravenous, ONCE, 1 dose, On Thu01/30/16 at 1100, Administer over 4 Hours, Administer over 4-6 hours Given 01/30/2016 12:21 PM EDT 10 mmol 25 m L/hr potassium phosphate 15 mMol in sodium chloride 0.9% 250 mL 15 mmol, Intravenous, ONCE, 1 dose, On Thu01/31/16 at 1000, Administer over 4 Hours, Administer over 4-6 hours Given 01/31/2016 11:23 AM EDT 15 mmol 62.5 mL/hr sodium chloride 0.9% 1,000 mL IV bolus Intravenous, ONCE, 1 dose, On Thu01/30/16 at 0000 Given 01/30/2016 12:30 AM EDT sodium chloride 0.9% infusion 100 mL/hr, Intravenous, CONTINUOUS, Starting on Thu01/29/16 at 2315, Until Thu02/01/16 at 1235 New Bag 01/31/2016 5:03 PM EDT 100 mL/hr 100 mL/hr New Bag 01/31/2016 6:36 AM EDT 100 mL/hr 100 mL/hr Rate/Dose Change 01/31/2016 6:25 AM EDT 100 mL/hr 100 mL/ hr sodium chloride 0.9% infusion 100 mL/hr, Intravenous, CONTINUOUS, Starting on 02/02/16 at 1145, Until Thu02/03/16 at 0724 New Bag 02/03/2016 5:16 AM EDT 100 mL/hr 100 mL/hr Bag 02/02/2016 6:31 PM EDT 100 mL/hr 100 mL/hr New Bag 02/02/2016 11:49 AM EDT 100 mL/hr 100 mL/hr sulfamethoxazole-trimethoprim (BACTRIM;SEPTRA) 400-80 mg per tablet 1 tablet 1 tablet, Oral, EVERY 24 HOURS SCHEDULED (Daily), First dose on Thu01/30/16 at 1100, Until Discontinued, Routine, Indication for (Active or Suspected): Urinary Tract/Pyelonephritis Given 02/05/2016 9:05 AM EDT 1 tablet Given 02/04/2016 8:21 AM EDT 1 tablet Given 02/03/2016 8:51 AM EDT 1 tablet tacrolimus (PROGRAF) capsule 1 mg 1 mg, Oral, 2 TIMES DAILY, First dose on Thu01/30/16 at 0900, Until Discontinued, Routine Given 02/05/2016 9:07 AM EDT 1 mg Given 02/04/2016 8:18 PM EDT 1 mg Given 02/04/2016 8:21 AM EDT 1 mg tamsulosin (FLOMAX) ER capsule 0.4 mg 0.4 mg, Oral, NIGHTLY, First dose on Thu01/30/16 at 0100, Until Discontinued, DO NOT CRUSH OR OPEN, Routine Given 02/04/2016 8:18 PM EDT 0.4 mg Given 02/03/2016 9:42 PM EDT 0.4 mg Given 02/02/2016 9:32 PM EDT 0.4 mg valGANciclovir (VALCYTE) tablet 450 mg 450 mg, Oral, DAILY, First dose on Thu01/30/16 at 1100, Until Discontinued, Routine, Indication for (Active or Suspected): Prophylaxis Given 02/05/2016 9:05 AM EDT 450 mg Given 02/04/2016 8:21 AM EDT 450 mg Given 02/03/2016 8:51 AM EDT 450 mg vancomycin (VANCOCIN) 1,750 mg in sodium chloride 0.9% 285 mL 1,750 mg, Intravenous, at 162.9 mL/hr, EVERY 24 HOURS, First dose on Thu02/03/16 at 2300, Until Discontinued, Maximum infusion rate is 1 gram/hour. If flushing of the face, neck, upper body, arms, and/or back occurs decrease infusion rate by 50% to reduce the severity of symptoms. This medication may have an associated drug lab level. Please see MAR for scheduled level. Warning Vesicant/Irritant Medication , Routine Given 02/04/2016 11:10 PM EDT 1,750 mg 162.9 mL/hr Given 02/03/2016 10:46 PM EDT 1,750 mg 162.9 mL/hr vancomycin 1.5 g in sodium chloride 0.9% 250 mL 1,500 mg (1.5 g), Intravenous, EVERY 24 HOURS, First dose on Thu01/31/16 at 0000, Until Discontinued, Maximum infusion rate is 1 gram/hour. If flushing of the face, neck, upper body, arms, and/or back occurs decrease infusion rate by 50% to reduce the severity of symptoms. This medication may have an associated drug lab level. Please see MAR for scheduled level. Warning Vesicant/Irritant Medication , Routine Given 01/30/2016 11:29 PM EDT 1,500 mg vancomycin 1.5 g in sodium chloride 0.9% 250 mL 1,500 mg (1.5 g), Intravenous, EVERY 24 HOURS, First dose (after last modification) on Thu02/01/16 at 2300, Until Discontinued, Maximum infusion rate is 1 gram/hour. If flushing of the face, neck, upper body, arms, and/or back occurs decrease infusion rate by 50% to reduce the severity of symptoms. This medication may have an associated drug lab level. Please see MAR for scheduled level. Warning Vesicant/Irritant Medication , Routine Given 02/02/2016 10:39 PM EDT 1,500 mg Given 02/01/2016 11:07 PM EDT 1,500 mg vancomycin 2 g in sodium chloride 0.9% 500 mL 2,000 mg (2 g), Intravenous, ONCE, 1 dose, On Thu01/29/16 at 2330, Maximum infusion rate is 1 gram/hour. If flushing of the face, neck, upper body, arms, and/or back occurs decrease infusion rate by 50% to reduce the severity of symptoms. This medication may have an associated drug lab level. Please see MAR for scheduled level. Warning Vesicant/Irritant Medication , STAT Given 01/30/2016 12:30 AM EDT 2,000 mg vancomycin 2 g in sodium chloride 0.9% 500 mL 2,000 mg (2 g), Intravenous, EVERY 24 HOURS, First dose on Laura 01/31/16 at 2300, Until Discontinued, Maximum infusion rate is 1 gram/hour. If flushing of the face, neck, upper body, arms, and/or back occurs decrease infusion rate by 50% to reduce the severity of symptoms. This medication may have an associated drug lab level. Please see MAR for scheduled level. Warning Vesicant/Irritant Medication , Routine Given 01/31/2016 10:10 PM EDT 2,000 mg documented in this encounter Active and Recently Administered Medications Times are shown in EDT. Scheduled Medication Order 02/03/2016 02/04/2016 02/05/2016 calciTRIol (ROCALTROL) capsule 0.5 mcg 0.5 mcg, Oral, DAILY, First dose on Thu01/30/16 at 0900, Until Discontinued, Routine 0851 (Given - Provider: Bernarda Pedroza RN) 0821 (Given - Provider: Bernarda Pedroza RN) 0905 (Given - Provider: Brandee Akins, JADEN) DILTiazem (DILTIAZEM CD) ER capsule 120 mg 120 mg, Oral, DAILY, First dose on Thu01/30/16 at 0900, Until Discontinued, DO NOT CRUSH OR OPEN, Routine 0851 (Given - Provider: Bernarda Pedroza RN) 0821 (Given - Provider: Bernarda Pedroza RN) 0905 (Given - Provider: Brandee Akins, JADEN) heparin (porcine) subcutaneous injection 5,000 Units 5,000 Units, Subcutaneous, EVERY 8 HOURS SCHEDULED, First dose on 02/02/16 at 1400, Until Discontinued, Routine 0549 (Given - Provider: Tamela Mckeon RN)1456 (Given - Provider: Bernarda Pedroza RN)2200 (Not Given - Provider: Anatoly Chapman RN - Reason: Patient/family refused) 0600 (Not Given - Provider: Anatoly Chapman RN - Reason: Patient/family refused)1400 (Not Given - Provider: Bernarda Pedroza RN - Reason: Patient/family refused)2200 (Not Given - Provider: Anatoly Chapman RN - Reason: Patient/family refused) 0600 (Not Given - Provider: Anatoly Chapman RN - Reason: Patient/family refused) levothyroxine (SYNTHROID) tablet 75 mcg 75 mcg, Oral, EVERY MORNING, First dose on Thu01/30/16 at 0600, Until Discontinued, Routine 0549 (Given - Provider: Tamela Mckeon RN) 0631 (Given - Provider: Anatoly Chapman RN) 0604 (Given - Provider: Anatoly Chapman RN) magnesium oxide (MAG-OX) tablet 400 mg 400 mg, Oral, 3 TIMES DAILY, First dose on Thu01/30/16 at 2100, Until Discontinued, Routine 1136 (Given - Provider: Bernarda Pedroza RN)1456 (Given - Provider: Bernarda Pedroza RN)2142 (Given - Provider: Anatoly Chapman RN) 0821 (Given - Provider: Bernarda Pedroza RN)1537 (Given - Provider: Bernarda Pedroza RN)2018 (Given - Provider: Anatoly Chapman RN) 0904 (Given - Provider: Brandee Akins, JADEN) magnesium sulfate 2 g in sterile water 50 mL (COMPLETED) 2 g, Intravenous, ONCE, 1 dose, On Thu02/03/16 at 0900, Administer over 120 Minutes 1136 (Given - Provider: Bernarda Pedroza RN) mycophenolate (CELLCEPT) capsule 250 mg 250 mg, Oral, 2 TIMES DAILY, First dose on Thu01/30/16 at 0900, Until Discontinued, DO NOT CRUSH OR OPEN, Routine 0851 (Given - Provider: Bernarda Pedroza RN)2143 (Given - Provider: Anatoly Chapman RN) 0821 (Given - Provider: Bernarda Pedroza RN)2018 (Given - Provider: Anatoly Chapman RN) 0905 (Given - Provider: Brandee Akins, JADEN) pantoprazole (PROTONIX) tablet 40 mg 40 mg, Oral, DAILY, First dose (after last modification) on Thu01/30/16 at 2000, Until Discontinued, DO NOT CRUSH OR OPEN 0851 (Given - Provider: Bernarda Pedroza RN) 0821 (Given - Provider: Bernarda Pedroza RN) 0905 (Given - Provider: Brandee Akins, JADEN) potassium chloride (K-DUR/KLOR-CON) extended release tablet 40 mEq (COMPLETED) 40 mEq, Oral, ONCE, 1 dose, On Thu02/03/16 at 0900, 20 mEq tablet may be dissolved in water for administration, Routine 0851 (Given - Provider: Bernarda Pedroza RN) potassium phosphate (monobasic) (K-PHOS) tablet 1,000 mg 1,000 mg, Oral, 2 TIMES DAILY, First dose on Thu01/30/16 at 0900, Until Discontinued, Please dose at least two hours apart from oral magnesium replacement. Dissolve tablets in 6-8 oz of water; for best results, soak tablets in water for 2-5 minutes, then stir and give to patient., Routine 1238 (Given - Provider: Bernarda Pedroza RN)2245 (Given - Provider: Anatoly Chapman RN) 1145 (Given - Provider: Bernarda Pedroza RN)2310 (Given - Provider: Anatoly Chapman, JADEN) 1104 (Given - Provider: Brandee Akins, JADEN) sulfamethoxazole-trimet hoprim (BACTRIM;SEPTRA) 400-80 mg per tablet 1 tablet 1 tablet, Oral, EVERY 24 HOURS SCHEDULED (Daily), First dose on Thu01/30/16 at 1100, Until Discontinued, Routine, Indication for (Active or Suspected): Urinary Tract/Pyelonephritis 0851 (Given - Provider: Bernarda Pedroza RN) 0821 (Given - Provider: Bernarda Pedroza RN) 0905 (Given - Provider: Brandee Akins, JADEN) tacrolimus (PROGRAF) capsule 1 mg 1 mg, Oral, 2 TIMES DAILY, First dose on Thu01/30/16 at 0900, Until Discontinued, Routine 0851 (Given - Provider: Bernarda Pedroza RN)2143 (Given - Provider: Anatoly Chapman RN) 0821 (Given - Provider: Bernarda Pedroza, JADEN)2017 (Given - Provider: Anatoly Chapman, JADEN) 0907 (Given - Provider: Brandee Akins, JADEN) tamsulosin (FLOMAX) ER capsule 0.4 mg 0.4 mg, Oral, NIGHTLY, First dose on Thu01/30/16 at 0100, Until Discontinued, DO NOT CRUSH OR OPEN, Routine 2141 (Given - Provider: Anatoly Chapman RN) 2017 (Given - Provider: Anatoly Chapman RN) valGANciclovir (VALCYTE) tablet 450 mg 450 mg, Oral, DAILY, First dose on Thu01/30/16 at 1100, Until Discontinued, Routine, Indication for (Active or Suspected): Prophylaxis 0851 (Given - Provider: Bernarda Pedroza RN) 08 (Given - Provider: Bernarda Pedroza RN) 0905 (Given - Provider: Brandee Akins, JADEN) vancomycin (VANCOCIN) 1,750 mg in sodium chloride 0.9% 285 mL 1,750 mg, Intravenous, at 162.9 mL/hr, EVERY 24 HOURS, First dose on Thu02/03/16 at 2300, Until Discontinued, Maximum infusion rate is 1 gram/hour. If flushing of the face, neck, upper body, arms, and/or back occurs decrease infusion rate by 50% to reduce the severity of symptoms. This medication may have an associated drug lab level. Please see MAR for scheduled level. Warning Vesicant/Irritant Medication , Routine 2246 (Given - Provider: Anatoly Chapman RN) 2310 (Given - Provider: Anatoly Chapman RN) Continuous Medication Order 02/03/2016 02/04/2016 02/05/2016 sodium chloride 0.9% infusion (CANCELED) 100 mL/hr, Intravenous, CONTINUOUS, Starting on 02/02/16 at 1145, Until Thu02/03/16 at 0724 0516 (New Bag - Provider: Tamela Mckeon RN) PRN Medication Order 02/03/2016 02/04/2016 02/05/2016 acetaminophen (TYLENOL) tablet 650 mg 650 mg, Oral, EVERY 4 HOURS PRN, Starting on Thu01/30/16 at 0005, Until Thu02/05/16 at 1427, Pain, Maximum dose of acetaminophen is 4000 mg from all sources in 24 hours., Routine 2144 (Given - Provider: Anatoly Chapman, JADEN) 2016 (Given - Provider: Anatoly Chapman RN) 906 (Given - Provider: Brandee Akins, JADEN) ondansetron (ZOFRAN) injection 4 mg 4 mg, Intravenous, EVERY 8 HOURS PRN, Starting on Thu01/30/16 at 2019, Until Thu02/05/16 at 1427, Nausea documented in this encounter Care Teams Room Server Relationship Specialty Start Date End Date Urbano Denis DO [address] [place] [address] PCP - General 09/03/12 03/17/22 Ruchi Valles RN Nurse Clinic Transplant Surgery 07/30/15 documented as of this encounter
--- OUTSIDE RECORDS SUMMARY | 2024-02-14 11:32 | XMS_ITS | Encounter Summary ---
[place] [address] Care Team Providers Care Manager Clinical Informatics Name Role Phone Adeel Urbano KIRBY Primary Care Provider Encounter Details Date Type Department Care Team (Latest Contact Info) Description 01/04/2016 1:00 PM EDT Laboratory Appointment Lab [address] [place] [phone] Hepatitis C virus infection without hepatic coma, unspecified chronicity; Kidney replaced by transplant; Kidney transplant infection Social History Tobacco Use Types Packs/Day Years [...] EDT Hospital Encounter Non-Invasive [place] [phone] Arrived Pending Results Name Type Priority Associated Diagnoses Date /Time Hepatitis C genotype Lab Routine Hepatitis C virus infection without hepatic coma, unspecified chronicity 01/04/2016 1:44 PM EDT documented as of this encounter Procedures Procedure Name Priority Date/Time Associated Diagnosis Comments MISCELLANEOUS LAB REQUEST Routine 01/04/2016 1:55 PM EDT Hepatitis C virus infection without hepatic coma, unspecified chronicity [facility] Routine 01/04/2016 1 :55 PM EDT HEMOGRAM Routine 01/04/2016 1:55 PM EDT Hepatitis C virus infection without hepatic coma, unspecified chronicity DIFFERENTIAL, AUTOMATED Routine 01/04/2016 1:55 PM EDT Hepatitis C virus infection without hepatic coma, unspecified chronicity HEPATITIS C RNA, QUANTITATIVE, PCR Routine 01/04/2016 1:55 PM EDT Hepatitis C virus infection without hepatic coma, unspecified chronicity PROTHROMBIN TIME Routine 01/04/2016 1:55 PM EDT Hepatitis C virus infection without hepatic coma, unspecified chronicity RETICULOCYTE COUNT STAT 01/04/2016 1: 55 PM EDT Kidney replaced by transplant CBC (WITH DIFF) Routine 01/04/2016 1:55 PM EDT Hepatitis C virus infection without hepatic coma, unspecified chronicity URIC ACID STAT 01/04/2016 1:55 PM EDT Kidney replaced by transplant PHOSPHORUS STAT 01/04/2016 1:55 PM EDT Kidney replaced by transplant MAGNESIUM STAT 01/04/2016 1:55 PM EDT Kidney replaced by transplant CHOLESTEROL, TOTAL STAT 01/04/2016 1: 55 PM EDT Kidney replaced by transplant COMPREHENSIVE METABOLIC PANEL Routine 01/04/2016 1:55 PM EDT Hepatitis C virus infection without hepatic coma, unspecified chronicity PROTEIN/CREATININE RATIO, URINE STAT 01/04/2016 1:54 PM EDT Kidney replaced by transplant URINALYSIS WITH REFLEX CULTURE STAT 01/04/2016 1:54 PM EDT Kidney replaced by transplant URINE CULTURE STAT 01/04/2016 1:54 PM EDT documented in this encounter Results * [facility] Test-[facility] (01/04/2016 1:55 PM EDT) [facility] Test ?Result ?Flag ??Unit ??RefValue HCV RNA Genotype 1 NS5a Drug Resist ??HCV NS5a Subtype ?1a ??Daclatasvir Resistance ?NOT PREDICTED ??Ledipasvir Resistance ? NOT PREDICTED ??Ombitasvir Resistance ? NOT PREDICTED ??Elbasvir Resistance ? NOT PREDICTED Mutations Detected: NONE REFERENCE RANGE: ? HCV NS5a SUBTYPE: NOT DETECTED This assay is designed to amplify HCV genotypes 1a and 1b and may not successfully amplify other HCV genotypes. This test utilizes RT-PCR and DNA sequencing to detect the presence of treatment-emerge nt HCV NS5a variants associated with NS5a inhibitor antiviral therapy. The clinical significance of NS5a resistance associated variants for antiviral therapy may vary according to the clinical status and antiviral treatment experience of the HCV-infected patient. For further guidance consult with the package inserts of the applicable direct acting agents and guideline documents such as the AASLD and IDSA guidelines available at http://hcvguidel joslyn.org For additional information please refer to http://education .[employer].com/faq/ZFV431 This test was developed and its analytical performance characteristics have been determined by [employer]. It has not been cleared or approved by the FDA. This assay has been validated pursuant to the CLIA regulations and is used for clinical purposes. Test Performed by: [employer], [employer] [id number] [place], [place] [id number] [place] [address] LABORATORY Blood specimen (specimen) Venous Draw / Unknown 01/04/2016 1:55 PM EDT 01/04/2016 4:01 PM EDT Narrative Resulting Agency Comment Spec In Lab Tulio Marcelo MD LAB SEND OUT ORDERA BLES [facility] [place] [address] * (ABNORMAL) Differential, Automated (01/04/2016 1:55 PM EDT) Neutrophil % 74.7 % [facility] Neutrophil Absolute 5.46 1.50 - 6.30 x10(3)/mc L [facility] Lymph % 19.9 % [facility] Lymphocytes Abs 1.5 1.0 - 3.6 x10(3)/ L [facility] Monocyte % 1.8 % [facility] Monocyte Abs 0.1(L) 0.2 - 1.0 x10(3)/mc L [facility] Eos % 2.7 % [facility] Eosinophils Abs 0.2 0.0 - 0.5 x10(3)/ L [facility] Basophil % 0.8 % [facility] Baso Absolute 0.1 0.0 - 0.2 x10(3)/mc L [facility] Immature Gran % 0.10 % [facility] Comment: Immature granulocytes(IG's)percentage and absolute count will include metamyelocytes, myelocytes, and promyelocytes. Blood smears from CBCs yielding IG's will be scanned manually for concordance. If this scan disagrees with the automated IG or if promyelocytes are noted, a manual differential will be performed. Immature Gran Absolute 0.01 0.00 - 0.05 x10(3)/mc L [facility] Blood specimen (specimen) 01/04/2016 1:55 PM EDT 01/04/2016 2:05 PM EDT Narrative Resulting Agency Comment Spec In Lab Tulio Marcelo MD HEMATOLOGY ORDERABL ES [facility] [place] [address] * (ABNORMAL) Hemogram (01/04/2016 1:55 PM EDT) White Blood Cell 7.3 4.0 - 10.0 x10(3)/mc L [facility] Red Blood Cell 4.29(L) 4.63 - 6.08 x10(6)/mc L [facility] Hemoglobin 13.6(L) 13.7 - 17.5 gm/dL [facility] Hematocrit 39.9(L) 40.0 - 51.0 % [facility] Mean Cell Volume 93.0(H) 79.0 - 92.[address] [facility] Mean Cell Hemoglobin 31.7 25.6 - 32.[address] [facility] Mean Cell Hemoglobin Concentration 34.1 32.0 - 36.5 gm/dL [facility] Platelet 244 145 - 370 x10(3)/mc L [facility] RDW Standard Deviation 45.9 35.0 - 46.[address] [facility] RDW coefficient of variation 13.8 10.9 - 14.4 % [facility] Mean Platelet Volume 9.2 9.0 - 12.[address] [facility] Blood specimen (specimen) 01/04/2016 1:55 PM EDT 01/04/2016 2:05 PM EDT Narrative Resulting Agency Comment Spec In Lab Tulio Marcelo MD HEMATOLOGY ORDERABL ES [facility] [place] [address] * Miscellaneous Lab request (01/04/2016 1:55 PM EDT) Label Request received in lab. [facility] Blood specimen (specimen) 01/04/2016 1:55 PM EDT 01/04/2016 5:54 PM EDT Narrative Resulting Agency Comment Spec In Lab Tulio Marcelo MD LAB SEND OUT ORDERA BLES Performing Organization Address [facility]/ZIP Co de Phone Number [facility] [place] [address] * (ABNORMAL) Magnesium (01/04/2016 1:55 PM EDT) Magnesium 0.63(L) 0.69 - 1.07 mmol/L [facility] Blood specimen (specimen) 01/04/2016 1:55 PM EDT 01/04/2016 2:05 PM EDT Narrative Resulting Agency Comment Spec In Lab Que Amaro MD CHEMISTRY ROCHELLE JENNINGS Performing Organization Address [facility] Co de Phone Number [facility] [place] [address] * (ABNORMAL) Phosphorus (01/04/2016 1:55 PM EDT) Phosphorus 2.1(L) 2.5 - 4.5 mg/dL [facility] Blood specimen (specimen) 01/04/2016 1:55 PM EDT 01/04/2016 2:05 PM EDT Narrative Resulting Agency Comment Spec In Lab Que Amaro MD CHEMISTRY ROCHELLE JENNINGS Performing Organization Address [facility]/ZIP Co de Phone Number [facility] [place] [address] * Uric acid (01/04/2016 1:55 PM EDT) Uric Acid 7.0 3.5 - 8.5 mg/dL [facility] Blood specimen (specimen) 01/04/2016 1:55 PM EDT 01/04/2016 2:05 PM EDT Narrative Resulting Agency Comment Spec In Lab Que Amaro MD CHEMISTRY ROCHELLE JENNINGS Performing Organization Address City/[facility]/ZIP Co de Phone Number [facility] [place] [address] * Reticulocyte Count (01/04/2016 1:55 PM EDT) Reticulocyte % 1.0 0.5 - 2.4 % [facility] Retic Abs # 0.040 0.027 - 0.095 x10(6)/mcL [facility] Immature Retic% 5.5 2.3 - 15.9 % [facility] Reticulated Hgb 35.3 28.5 - 38.[address] [facility] Immature Plt % 1.1 0.0 - 7.4 % [facility] Blood specimen (specimen) 01/04/2016 1:55 PM EDT 01/04/2016 2:05 PM EDT Narrative Resulting Agency Comment Spec In Lab Que Amaro MD HEMATOLOGY ORD ERABLES Performing Organization Address [facility]/ZIP Co de Phone Number [facility] [place] [address] * Cholesterol, total (01/04/2016 1:55 PM EDT) Cholesterol, Total 137 <=199 mg/dL [facility] Comment: Recommendations of the NCEP Adult Treatment Panel for the following risk cutoff thresholds for the [place] population: Desirable: <200 mg/dL Borderline High: 200-239 mg/dL High: > or = 240 mg/dL Blood specimen (specimen) 01/04/2016 1:55 PM EDT 01/04/2016 2:05 PM EDT Narrative Resulting Agency Comment Spec In Lab Que Amaro MD CHEMISTRY ROCHELLE JENNINGS Performing Organization Address City/[facility]/ZIP Co de Phone Number [facility] [place] [address] * Hepatitis C RNA, quantitative, PCR (01/04/2016 1:55 PM EDT) HCV Viral Load 516,252 IU/mL [facility] HCV Viral Load Result: [id number] IU/mL Indication for Study: Hepatitis C Infection Analysis: A quantitiative real time reverse transcriptase PCR assay was performed on extracted viral RNA for the purpose of quantification. Sample: plasma (1 mL minimum volume) Method: Kirsten June TaqMAN 48 HCV Linear Range: 15 IU/mL - 100,000,000IU/mL (95% CI) Note: This assay is being performed in [place] [facility]. Gibson Good, Ph.D. Director, Molecular Pathology [facility] Comment: [VERIFIED DATE]01.09.16 Verified By:Fatemeh Garcia (Electronic Signature) Blood specimen (specimen) 01/04/2016 1:55 PM EDT 01/08/2016 8:08 AM EDT Narrative Resulting Agency Comment Spec In Lab Tulio Marcelo MD MOLECULAR ORDERABLE S Performing Organization Address City/State/[facility] Co de Phone Number [facility] [place] [address] * Prothrombin Time (01/04/2016 1:55 PM EDT) Prothrombin Time 13.6 12.0 - 15.[address] [facility] Comment: An INR [...] International Normalization Ratio 1.0 0.9 - 1.1 [facility] Blood specimen (specimen) 01/04/2016 1:55 PM EDT 01/04/2016 2:05 PM EDT Narrative Resulting Agency Comment Spec In Lab Tulio Marcelo MD HEMATOLOGY ORDERABL ES [facility] [place] [address] * (ABNORMAL) Comprehensive metabolic panel (non-fasting) (01/04/2016 1:55 PM EDT) Glucose 104 65 - 199 mg/dL [facility] Comment:Diabetes: >=200 mg/d L plus symptoms Blood Urea Nitrogen 29(H) 10 - 20 mg/dL [facility] Creatinine 2.69(H) 0.80 - 1.50 mg/dL [facility] Comment: Please note that the pediatric reference intervals supplied above were not validated at [facility]. Results from pediatric patients should be interpreted [...] questions. Chloride 97(L) 98 - 107 mmol/L [facility] Carbon Dioxide 26 22 - 31 mmol/L [facility] Anion Gap 15 5 - 15 mmol/L [facility] Calcium 9.5 8.5 - 10.5 mg/dL [facility] Protein, Total 7.9 6.1 - 8.0 gm/dL [facility] Albumin 4.2 3.2 - 5.2 gm/dL [facility] Aspartate Aminotransferase 21 0 - 39 unit/L [facility] Alanine Aminotransferase 16 0 - 55 unit/L [facility] Alkaline Phosphatase 66 40 - 120 unit/L [facility] Bilirubin, Total 0.9 0.2 - 1.3 mg/dL [facility] Bilirubin, Direct 0.2 0.0 - 0.3 mg/dL [facility] Est Glomerular Filtration Rate 24(L) >=60 [facility] Comment: This [...] the following links into your internet browser. [email or web address] Blood specimen (specimen) 01/04/2016 1:55 PM EDT 01/04/2016 2:05 PM EDT Narrative Resulting Agency Comment Spec In Lab Tulio Marcelo MD CHEMISTRY ORDERABLE S Performing Organization Address [facility] Co de Phone Number [facility] [place] [address] * Urine culture (01/04/2016 1:54 PM EDT) Urine Culture No growth (Less than 1,000 cfu/ml). [facility] Urine specimen (specimen) 01/04/2016 1:54 PM EDT 01/04/2016 2:23 PM EDT Narrative Resulting Agency Comment Spec In Lab Que Amaro MD MICROBIOLOGY - GENERAL ORDERABLES Performing Organization Address [facility]/ZIP Co de Phone Number [facility] [place] [address] * (ABNORMAL) Protein/Creatinine Ratio, urine (01/04/2016 1:54 PM EDT) Creatinine, Urine 128 mg/dL [facility] Protein, Urine 130(H) 0 - 12 mg/dL [facility] Protein / Creatinine Ratio, Urine 1.[address] [facility] Urine specimen (specimen) 01/04/2016 1:54 PM EDT 01/04/2016 2:01 PM EDT Narrative Resulting Agency Comment Spec In Lab Que Amaro MD URINE ORDERABL ES [facility] [place] [address] * (ABNORMAL) Urinalysis with reflex Culture (01/04/2016 1:54 PM EDT) Glucose, Urine Dipstick Negative Negative [...] [facility] Leukocytes, Urine Dipstick Moderate(A) Negative mcL [facility] Appearance, Urine Dipstick Cloudy(A) Clear [facility] Specific Comstock Urine Automated 1.016 1.002 - 1.030 [facility] Color, Urine Dipstick Yellow Yellow [facility] RBC, Urine 74(H) 0 - 3 /HPF [facility] WBC, Urine 35(H) 0 - 3 /HPF [facility] Bacteria, Urine Rare(A) None /HPF [facility] Squamous Epithelial Cells, Urine <1 <=4 /HPF [facility] Reflex to Culture Yes [facility] Urine specimen (specimen) 01/04/2016 1:54 PM EDT 01/04/2016 2:00 PM EDT Narrative Resulting Agency Comment Spec In Lab Que Amaro MD URINE ORDERABL ES [facility] [place] [address] documented in this encounter Visit Diagnoses Diagnosis Hepatitis C virus infection without hepatic coma, unspecified chronicity Kidney replaced by transplant Kidney transplant infection Complications of transplanted kidney documented in this encounter Care Teams Manager Clinical Informatics Relationship Specialty Start Date End Date Urbano Denis DO [address] [place] [address] PCP - General 09/03/12 03/17/22 Ruchi Valles RN Nurse Clinic Transplant Surgery 07/30/15 documented as of this encounter
--- OUTSIDE RECORDS SUMMARY | 2024-02-14 11:32 | XMS_ITS | Encounter Summary ---
Author Organization [facility] [place] [address] Care Team Providers Care Wildlife Officer Name Role Phone Urbano Denis DO Primary Care Provider Encounter Details Date Type Department Care Team (Late st Contact Info) Description 01/14/2016 Notes Only [place] [phone] Chapin Lehman MSW Social History Tobacco Use Types Packs/Day Years [...] as of this encounter Progress Notes * Chapin Lehman MSW - 01/14/2016 10:59 AM EDT SW saw pt in clinic this day and they reported no changes needing support. documented in this encounter Plan of Treatment Upcoming Encounters Date Type Department Care Team (Late st Contact Info) Description 04/15/2024 10:00 AM EDT Hospital Encounter Non[place] [address] Arrived documented as of this encounter Visit Diagnoses Not on filedocumented in this encounter Care Teams Wildlife Officer Relationship Specialty Start Date End Date Urbano Denis DO [address] [place], [place] [address]Y [facility] [address] [place] [address] PCP - General 09/03/12 03/17/22 Ruchi Valles RN Nurse Clinic Transplant Surgery 07/30/15 documented as of this encounter
--- OUTSIDE RECORDS SUMMARY | 2024-02-14 11:32 | XMS_ITS | Encounter Summary ---
Author Organization [facility] [place] [address] Care Team Providers Care Rn Home Health Name Role Phone AdeelUrbano toscano Primary Care Provider [phone] Encounter Details Date Type Department Care Team (Late st Contact Info) Description 01/03/2016 Orders Only [place] [phone] Victor Manuel Torre MD [facility] [address] [place] [address] H/O kidney transplant Social History Tobacco Use [...] AM EDT Hospital Encounter Non-[place] [phone] Arrived documented as of this encounter Results * XR Abdomen 1 View (GENERIC) (01/03/2016 12:55 PM EDT) Anatomical Region Laterality Modality Abdomen N/A Digital Radiogra phy Impressions 01/03/2016 1:10 PM EDT Left nephroureterostomy tube with the pigtail looped now low in the left hemipelvis above the level of the symphysis pubis. Compared to prior imaging. Narrative 01/03/2016 1:10 PM EDT EXAMINATION: XR ABDOMEN ONE VIEW CLINICAL HISTORY: Patient with nephroureterostomy tube of left transplant kidney, question that it got pulled out slightly when dressing was removed. Please image left lower abdomen/pelvis for position TECHNIQUE: A single AP view of the abdomen was obtained. COMPARISON: Prior imaging IR procedure 01/01/2016.Prior CT of the abdomen pelvis 12/30/2015. FINDINGS: Compared to prior imaging the position of the left nephroureterostomy tube is displaced inferiorly on this supine view. Radiopaque marker now overlies the left iliac crest where as previously the radiopaque marker was seen lateral to the patient. Correlate with contrast injection to determine whether not the nephroureterostomy tube remains within the collecting system of the left lower quadrant transplant kidney. Procedure Note Rona Mancia MD - 01/03/2016 EXAMINATION: XR ABDOMEN ONE VIEW CLINICAL HISTORY: Patient with nephroureterostomy tube of lefttransplant kidney, question that it got pulled out slightly when dressing wasremoved. Please image left lower abdomen/pelvis for position TECHNIQUE: A single AP view of the abdomen was obtained. COMPARISON: Prior imaging IR procedure 01/01/2016.Prior CT of theabdomen pelvis 12/30/2015. FINDINGS: Compared to prior imaging the position of the left nephroureterostomy tubeis displaced inferiorly on this supine view. Radiopaque marker now overliesthe left iliac crest where as previously the radiopaque marker was seenlateral to the patient. Correlate with contrast injection to determine whether notthe nephroureterostomy tube remains within the collecting system of the leftlower quadrant transplant kidney. IMPRESSION Left nephroureterostomy tube with the pigtail looped now low in the left hemipelvis above the level of the symphysis pubis. Compared to priorimaging. Que Amaro MD IMG DX ORDERAB LES documented in this encounter Visit Diagnoses Diagnosis H/O kidney transplant Kidney replaced by transplant H/O kidney transplant Kidney replaced by transplant documented in this encounter Care Teams Rn Home Health Relationship Specialty Start Date End Date Urbano Denis DO [address] [place] [address] PCP - General 09/03/12 03/17/22 Ruchi Valles RN Nurse Clinic Transplant Surgery 07/30/15 documented as of this encounter
--- OUTSIDE RECORDS SUMMARY | 2024-02-14 11:32 | XMS_ITS | Encounter Summary ---
[facility] [place] [address] Care Team Providers Care Sales Agent Pest Control Service Name Role Phone Urbano Denis DO Primary Care Provider [phone] Reason for Visit * Auth/Cert Specialty Diagnoses / Procedures Referred By Humberto t Referred To Contact Diagnoses RAY (acute kidney injury) RAY - RO REJECTION / SP RENAL TRANSPLANT Referral ID Status Reason Start Date Expiration Date Visits Re quested Visits Authorized [id number] 1 1 Encounter Details Date Type Department Care Team (Late st Contact Info) Description 01/03/2016 3:30 PM EDT Office Visit Cardiology at [address] [id number] Byron Brown MD [facility] [address] Acute renal failure, unspecified acute renal failure type Social History Tobacco Use Types Packs/Day [...] Sign Reading Time Taken Comments Blood Pressure 138/80 01/03/2016 3:38 PM EDT Pulse 78 01/03/2016 3:38 PM EDT Temperature - - Respiratory Rate - - Oxygen Saturation 99% 01/03/2016 3:38 PM EDT Inhaled Oxygen Concentration - - Weight 96.2 kg (212 lb) 01/03/2016 3:38 PM EDT Height 180.3 cm (5' 11) 01/03/2016 3:38 PM EDT Body Mass Index 29.57 01/03/2016 3:38 PM EDT documented in this encounter Progress Notes * Byron Brown MD - 01/03/2016 4:07 PM EDT Reason for Consult: Cardiorenal s/p kidney transplant ? Referring Physician: Tal Eagle MD Kidney and donor status: Patient is s/p kidney transplant in September 2015. The patient had a significant rise in Cr post transplant that was unexplained. The renal transplant team asked to have the patient seen for any possible cardiac causes of the worsening renal function. A brief review and updateis as follows: HPI: The patient states that he was doing well post transplant until a shunt was removed at that time, his Cr started to rise. As of last weekend, he was admitted to the hospital for a Cr > 7, butwas found to have urinary obstruction. Urology was consulted and placed a stent and a urostomy tube. With the relief of obstruction the Cr has been decreasing. Most recently 2.8 (see below). He report s that he did not have leg swelling with the ARF. The patient also notes that he had some symptoms with numbness in his right foot and right hand that he thought might have been a stroke. He was evaluated by his PCP and referred for further evaluation at [facility]. He underwent some testing including a head CT, carotid ultrasound, DAVEY, and 30 day holter monitor. He reports there was no clot found and no evidence of AF. There was apparently some debate among neuro as to whether it was truly a CVA or not. However, he was placed on plavix. Results for ETHEL AKINS ( ) as of 01/03/2016 16:17 Ref. Range 12/30/2015 15:43 12/31/2015 07:59 01/01/2016 06:22 01/02/2016 08:10 01/03/2016 07:49 Creatinine Latest Ref Range: 0.80 - 1.50 mg/dL 5.20 (H) 4.36 (H) 3.64 (H) 3.36 (H) 2.84 (H) Cardiac History and Prior Cardiac Testing: The patient had some cardiac testing 6 months ago as part of his pre-transplant evaluation. A DSE at that time demonstrated normal LV function and no ischemia at 88% of his max HR (see below). He hasno known CAD. Risk factors include HTN and CKD, diabetes. The patient can walk around with no assistance. Denies shortness of breath or chest pain. 1. Technically difficult study. Definity contrast (one 1.5 ml vial)was used to enhance endocardial definition. ?? 2. BASELINE: Normal global and segmental biventricular systolic function with an estimated ejection fraction of 60%. ?? 3. STRESS: The peak dose of Dobutamine infused was 40 ug/kg/min. The patient was administered 1.0 mg of Atropine. The patient achieved a maximum heart rate of 136 which is 88% of the maximum predicted heart rate (154 beats/min). The target heart rate was achieved. The patient was administered 3 mg of Metoprolol during recovery. The patient performed leg lifts to accelerate heart rate. The patient performed hand squeezes to accelerate heart rate. The patient did not express feelings of chest discomfort. The blood pressure response was hypertensive. There were no arrhythmias. There were no significant ST segment changes. This was a negative electrocardiographic stress test for ischemia. ?? 4. ECHOCARDIOGRAPHIC FINDINGS: Global left ventricular systolic function appears hyperdynamic. 5. IMPRESSION: Normal dobutamine stress echocardiogram. There is no echocardiographic evidence of ischemia at this level of stress. 6. Other echo and stress findings as noted in report. ? ROS: Patient perception of overall health: fair. Weight: stable Signs of infection: No fevers, chills, or sweats Eyes: No recent changes in vision Ears, Nose, Throat: No reported pain or symptoms Dentition: stable, no recent problems. CV: see above. Pulm: no cough. GI: No nausea or vomiting. No abdominal pain. Musculo-skeletal: no reported pain or weakness Neuro: alert and oriented x 3 Gait: able to walk without assistance. Past Medical History: Patient Active Problem List Diagnosis ??? UTI (urinary tract infection) ??? [...] ??? DJD (degenerative joint disease) ??? Hematuria Current Medications: Current Outpatient Prescriptions Medication Sig Note Dispense Refill ??? mycophenolate (CELLCEPT) 250 mg [...] 4 times daily. (Patient taking differently: Take 3 tablets by mouth 2 times daily.) ??? [...] tablet by mouth daily. 30 tablet 0 ??? ONE TOUCH ULTRA TEST Strip 07/11/2014: . 0 ??? ONE TOUCH ULTRAMINI Kit 07/11/2014: . 0 ??? ONE TOUCH DELICA LANCETS 30 gauge Misc 07/11/2014: . 0 Exam: Vitals: 01/03/16 1538 BP: 138/80 BP Location (NB): Right arm Patient Position: Sitting BP Cuff Sizes: Adult (25-34 cm) Pulse: 78 SpO2: 99% Weight: 96.2 kg (212 lb) Height: 180.3 cm (5' 11) Overall: healthy appearing Skin: no new rashes HEENT: no significant abnormalities Neck: JVP normal, no carotid bruit Lungs: clear to ascultation, no wheezes or crackles Cardiac: regular rate and rhythm. No murmurs, rubs or gallops. Abdominal: no pain on palpitation, normal bowel sounds, no masses Extremities: no edema. Has an AVF. Urostomy tube. Other pertinent labs/tests: See above. Assessment and Plan: 65 year old male 3 months s/p [...] reassess LV function, RV function, and PASP. No follow-up needed at this time. 30 minutes spent in face to face consultation. documented in this encounter Plan of Treatment Upcoming Encounters Date Type Department Care Team (Late st Contact Info) Description 04/15/2024 10:00 AM EDT Hospital Encounter [place] [address] Arrived documented as of this encounter Visit Diagnoses Diagnosis Acute renal failure, unspecified acute renal failure type documented in this encounter Care Teams Sales Agent Pest Control Service Relationship Specialty Start Date End Date Urbano Denis DO [address] [place] [address] PCP - General 09/03/12 03/17/22 Hai STANLEY,Ruchi Nurse Clinic Transplant Surgery 07/30/15 documented as of this encounter
--- OUTSIDE RECORDS SUMMARY | 2024-02-14 11:32 | XMS_ITS | Encounter Summary ---
[facility] [place] [address] Care Team Providers Care Time Study Clerk Name Role Phone Urbano Denis DO Primary Care Provider Encounter Details Date Type Department Care Team (Late st Contact Info) Description 01/04/2016 2:00 PM EDT Office Visit [place] [address] Que Amaro MD [facility] [place] [address] Kidney replaced by transplant Social History Tobacco [...] Sign Reading Time Taken Comments Blood Pressure 112/68 01/04/2016 2:07 PM EDT Pulse 75 01/04/2016 2:07 PM EDT Temperature - - Respiratory Rate - - Oxygen Saturation - - Inhaled Oxygen Concentration - - Weight 94.8 kg (209 lb) 01/04/2016 2:07 PM EDT Height 180.3 cm (5' 11) 01/04/2016 2:07 PM EDT Body Mass Index 29.15 01/04/2016 2:07 PM EDT documented in this encounter Progress Notes * Victor Manuel Torre MD - 01/04/2016 3:42 PM EDT Clinic Follow-up: Transplant Date: 01/04/2016 Patient: Cody Bolden Date of Transplant: 09/16/2015 Transplant Type: Kidney History of Present Illness: ?? Mr. Bolden is a Hep C positive 65-yo male with a history of donor kidney transplantationfrom a hep C positive donor on 09/16/15. 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 He was recently admitted during which time he underwent nephroureterostomy placement. His tube was capped yesterday and hewas discharged. He states that he made 2.1 Liters of urine from the time he left [facility] until 7 am. He did not measure his urine today. He feels more energetic than he has lately and was able to walk without getting winded today. He denies fevers, chills, or dysuria. He continues to tolerate the cappi ng and is voiding larger and larger volumes. His creatinine is down again today, 2.69 from 2.84. His blood pressure was a little on the low side in clinic, 112/68. Of note, his florinef was discontinued during admission. His UTI does show some pyuria (35 WBC) but nitrates were negative. Reflex culture is pending. Patient Active Problem List Diagnosis Date Noted ??? UTI (urinary tract infection) 12/07/2015 ??? RAY (acute kidney injury) 11/27/2015 ??? Kidney transplant infection 11/12/2015 ??? Renal failure 09/16/2015 ??? Chronic kidney disease, stage V 05/29/2015 ??? HCV (hepatitis C virus) 05/16/2015 ??? ESRD (end stage renal disease) 04/27/2015 ??? Hepatitis C virus infection 01/04/2015 ??? Essential hypertension 11/10/2014 ??? CGN (chronic glomerulonephritis) 10/16/2014 ??? DM type 2 (diabetes mellitus, type 2) 09/03/2012 ??? Hypertension 09/03/2012 ??? DJD (degenerative joint disease) 09/03/2012 ??? Hematuria 09/03/2012 Past Medical History Diagnosis Date ??? Back [...] EXTREMITY performed by Que Amaro MD at [facility] OR ??? Pro transplantation of kidney N/A 09/16/2015 @KIDNEY TRANSPLANT, WITHOUT RECIPIENT NEPHRECTOMY performed by Franko Larkin MD at [facility] OR ??? Pro transplant, prep cadaver renal graft N/A 09/16/2015 @PREPARATION CADAVERIC RENAL ALLOGRAFT performed by Franko Larkin MD at [facility] OR ??? N/A 09/16/2015 ORGAN ACQUISITION RENAL, CADAVERIC performed by Franko Larkin MD at [facility] OR Visit Vitals: BP 112/68 Pulse 75 Ht 180.3 cm (5' 11) Wt 94.8 kg (209 lb) BMI 29.15 kg/m2 ROS: Review of Systems 12 point ROS is negative except as per HPI Physical Exam: General: AOx3 HEENT: NCAT CV: RRR Pulm: CTABIL Abd: Soft, NT/ ND. Nephrostomy tube site without signs of infection Ext: No edema Neuro: Grossly intact A/P: Mr. Bolden is tolerating the capped nephroureterostomy, and his urine stream has increased. The stent seems to be working nicely without current signs of obstruction. His blood pressure is a little low; I have encouraged him to be judicious with his oral hydration this weekend with a goal of3-4 Liters per day. He is to measure his blood pressure daily at home and call if he remains in the 110 range this weekend; in that case, we could consider restarting Florinef. Regarding his urinalysis, given his recent history of bacteremia secondary to UTI and the fact that he now has hardware inplace, we spoke to the Transplant ID Fellow prison guard. She stated that the WBC/RBC ratio of 35:74 in his urine is higher than would be expected for blood alone and that in the setting of his recent issues and his stent, she would recommend restarting his ciprofloxacin at least until the culture returns. 1. Immunosuppression regiment: Tacrolimus: 1 mg bid MMF: 250 mg bid 2. Hypertension management: Diltiazem only. Patient instructed to increase po intake to 3-4L per day and call if SBP is still in the 110 range over the weekend, at which time reinstituting florinef could be considered 3. Electrolyte replacement: reviewed 4. Pyruria on urinalysis: Restart ciprofloxacin, 500 mg every 18 hours, based on CrCl of 28.3 mL/min. If Cr continues to improve, dose can be adjusted to every 12 hours. Will f/u cx and recheck U/A in clinic next week. 4. Follow-up: Labs: [x] with next clinic [] as outpatient in 7 days Clinic: 1 week 5. Pharmacy needs assessed. Cipro order sent to pharmacy Discussed with Dr. Sondra Torre M.D. PGY-4 Pager [phone] documented in this encounter Plan of Treatment Upcoming Encounters Date Type Department Care Team (Late st Contact Info) Description 04/15/2024 10:00 AM EDT Hospital Encounter Non-[place]vasive [place] [address] Arrived Scheduled Orders Name Type Priority Associated Diagnoses Orde r Schedule CBC (with Diff) Lab STAT Kidney replaced by transplant Expected: 01/03/2016 (Approximate), Expires: 07/01/2016 Comprehensive metabolic panel (non-fasting) Lab STAT Kidney replaced by transplant Expected: 01/03/2016 (Approximate), Expires: 07/01/2016 documented as of this encounter Results * (ABNORMAL) Magnesium (01/04/2016 1:55 PM EDT) Magnesium 0.63(L) 0.69 - 1.07 mmol/L [facility] Blood specimen (specimen) 01/04/2016 1:55 PM EDT 01/04/2016 2:05 PM EDT Narrative Resulting Agency Comment Spec In Lab Que Amaro MD CHEMISTRY ROCHELLE JENNINGS Performing Organization Address [facility] Co de Phone Number [facility] [place] [address] * (ABNORMAL) Phosphorus (01/04/2016 1:55 PM EDT) Phosphorus 2.1(L) 2.5 - 4.5 mg/dL [facility] Blood specimen (specimen) 01/04/2016 1:55 PM EDT 01/04/2016 2:05 PM EDT Narrative Resulting Agency Comment Spec In Lab Que Amaro MD CHEMISTRY ROCHELLE JENNINGS Performing Organization Address [facility] Co de Phone Number [facility] [place] [address] * Uric acid (01/04/2016 1:55 PM EDT) Uric Acid 7.0 3.5 - 8.5 mg/dL [facility] Blood specimen (specimen) 01/04/2016 1:55 PM EDT 01/04/2016 2:05 PM EDT Narrative Resulting Agency Comment Spec In Lab Que Amaro MD CHEMISTRY ROCHELLE JENNINGS Performing Organization Address [facility] Co de Phone Number [facility] [place] [address] * Reticulocyte Count (01/04/2016 1:55 PM EDT) Reticulocyte % 1.0 0.5 - 2.4 % [facility] Retic Abs # 0.040 0.027 - 0.095 x10(6)/mcL [facility] Immature Retic% 5.5 2.3 - 15.9 % [facility] Reticulated Hgb 35.3 28.5 - 38.9 pg [facility] Immature Plt % 1.1 0.0 - 7.4 % [facility] Blood specimen (specimen) 01/04/2016 1:55 PM EDT 01/04/2016 2:05 PM EDT Narrative Resulting Agency Comment Spec In Lab Que Amaro MD HEMATOLOGY ORD ERABLES Performing Organization Address [facility] Co de Phone Number [facility] [place] [address] * Cholesterol, total (01/04/2016 1:55 PM EDT) Cholesterol, Total 137 <=199 mg/dL [facility] Comment: Recommendations of the NCEP Adult Treatment Panel for the following risk cutoff thresholds for the [place] population: Desirable: <200 mg/dL Borderline High: 200-239 mg/dL High: > or = 240 mg/dL Blood specimen (specimen) 01/04/2016 1:55 PM EDT 01/04/2016 2:05 PM EDT Narrative Resulting Agency Comment Spec In Lab Que Amaro MD CHEMISTRY ORDE RABLES Performing Organization Address [facility] de Phone Number [facility] [place] [address] * (ABNORMAL) Protein/Creatinine Ratio, urine (01/04/2016 1:54 PM EDT) Creatinine, Urine 128 mg/dL [facility] Protein, Urine 130(H) 0 - 12 mg/dL [facility] Protein / Creatinine Ratio, Urine 1.0 ratio [facility] Urine specimen (specimen) 01/04/2016 1:54 PM EDT 01/04/2016 2:01 PM EDT Narrative Resulting Agency Comment Spec In Lab Que Amaro MD URINE ORDERABL ES Performing Organization Address [facility] Co de Phone Number [facility] [place] [address] * (ABNORMAL) Urinalysis with reflex Culture (01/04/2016 [...] [facility] Blood, Urine Dipstick Moderate(A) Negative mg/dL [facility] Ketone, Urine Dipstick Negative Negative mg/dL [facility] Nitrite, Urine Dipstick Negative Negative [facility] Leukocytes, Urine Dipstick Moderate(A) Negative [facility] Appearance, Urine Dipstick Cloudy(A) Clear [facility] Specific [place] Urine Automated 1.016 1.002 - 1.030 [facility] Color, Urine Dipstick Yellow Yellow [facility] RBC, Urine 74(H) 0 - 3 /HPF [facility] WBC, Urine 35(H) 0 - 3 /HPF [facility] Bacteria, Urine Rare(A) None /HPF [facility] Squamous Epithelial Cells, Urine <1 <=4 /HPF [facility] Reflex to Culture Yes [facility] Urine specimen (specimen) 01/04/2016 1:54 PM EDT 01/04/2016 2:00 PM EDT Narrative Resulting Agency Comment Spec In Lab Que Amaro MD [place] [address] documented in this encounter Visit Diagnoses Diagnosis Kidney replaced by transplant documented in this encounter Care Teams Time Study Clerk Relationship Specialty Start Date End Date Urbano Denis DO [address] [place] [address] PCP - General 09/03/12 03/17/22 Ruchi Valles RN Nurse Clinic Transplant Surgery 07/30/15 documented as of this encounter
--- OUTSIDE RECORDS SUMMARY | 2024-02-14 11:32 | XMS_ITS | Encounter Summary ---
Author Organization [facility] [place] [address] Care Team Providers Care Gauge Inspector Name Role Phone Urbano Denis DO Primary Care Provider Encounter Details Date Type Department Care Team (Latest Contact Info) Description 01/11/2016 9:30 AM EDT Laboratory Appointment Lab [address] [place] [phone] Kidney replaced by transplant Social History Tobacco [...] AM EDT Hospital Encounter [place] [phone] Arrived documented as of this encounter Procedures Procedure Name Priority Date/Time Associated Diagnosis Comments PROTEIN/CREATININE RATIO, URINE STAT 01/11/2016 9:33 AM EDT Kidney replaced by transplant URINALYSIS WITH REFLEX CULTURE STAT 01/11/2016 9:33 AM EDT Kidney replaced by transplant URINE CULTURE STAT 01/11/2016 9:33 AM EDT BK QUANT BLOOD RESULT STAT 01/11/2016 9:04 AM EDT Kidney replaced by transplant BKV QUANT BLOOD STAT 01/11/2016 9:04 AM EDT Kidney replaced by transplant HEMOGRAM STAT 01/11/2016 9:04 AM EDT Kidney replaced by transplant DIFFERENTIAL, AUTOMATED STAT 01/11/2016 9:04 AM EDT Kidney replaced by transplant TACROLIMUS LEVEL STAT 01/11/2016 9:04 AM EDT Kidney replaced by transplant RETICULOCYTE COUNT STAT 01/11/2016 9: 04 AM EDT Kidney replaced by transplant CBC (WITH DIFF) STAT 01/11/2016 9:04 AM EDT Kidney replaced by transplant URIC ACID STAT 01/11/2016 9:04 AM EDT Kidney replaced by transplant PHOSPHORUS STAT 01/11/2016 9:04 AM EDT Kidney replaced by transplant MAGNESIUM STAT 01/11/2016 9:04 AM EDT Kidney replaced by transplant CHOLESTEROL, TOTAL STAT 01/11/2016 9: 04 AM EDT Kidney replaced by transplant COMPREHENSIVE METABOLIC PANEL STAT 01/11/2016 9:04 AM EDT Kidney replaced by transplant documented in this encounter Results * Urine culture (01/11/2016 9:33 AM EDT) Urine Culture No growth (Less than 1,000 cfu/ml). [facility] Urine specimen (specimen) 01/11/2016 9:33 AM EDT 01/11/2016 10:30 AM EDT Narrative Resulting Agency Comment Spec In Lab Que Amaro MD MICROBIOLOGY - GENERAL ORDERABLES Performing Organization Address City/[facility]/ZIP Co de Phone Number [facility] [place] [address] * (ABNORMAL) Protein/Creatinine Ratio, urine (01/11/2016 9:33 AM EDT) Creatinine, Urine 114 mg/dL [facility] Protein, Urine 33(H) 0 - 12 mg/dL [facility] Protein / Creatinine Ratio, Urine 0.3 ratio [facility] Urine specimen (specimen) 01/11/2016 9:33 AM EDT 01/11/2016 9:41 AM EDT Narrative Resulting Agency Comment Spec In Lab Que Amaro MD URINE ORDERABL ES Performing Organization Address [facility]/ZIP Co de Phone Number [facility] [place] [address] * (ABNORMAL) Urinalysis with reflex Culture (01/11/2016 9:33 AM EDT) Glucose, Urine Dipstick Negative Negative [...] 8.0 [facility] Blood, Urine Dipstick Small(A) Negative mg/dL [facility] Ketone, Urine Dipstick Negative Negative mg/dL [facility] Nitrite, Urine Dipstick Negative Negative [facility] Leukocytes, Urine Dipstick Small(A) Negative [facility] Appearance, Urine Dipstick Clear Clear [facility] Specific [place] Urine Automated 1.015 1.002 - 1.030 [facility] Color, Urine Dipstick Yellow Yellow [facility] RBC, Urine 1 0 - 3 /HPF [facility] WBC, Urine 6(H) 0 - 3 /HPF [facility] Bacteria, Urine Rare(A) None /HPF [facility] Hyaline Casts, Urine 1 0 - 2 /LPF [facility] Reflex to Culture Yes [facility] Urine specimen (specimen) 01/11/2016 9:33 AM EDT 01/11/2016 9:41 AM EDT Narrative Resulting Agency Comment Spec In Lab Que Amaro MD URINE ORDERABL ES [facility] [place] [address] * BK Quant Blood Result (01/11/2016 9:04 AM EDT) BKV Blood Result Not Detected [...] DNA isolated from plasma was performed using [employer] BKV (ASR) reagents and the [employer] 7500 FAST Real-Time PCR System. In addition, the ??PCR product sequence is confirmed using physical properties (melting curve analysis). This test was developed and its performance determined by the [facility]. It has not been [...] clinical testing. [facility] Comment: [VERIFIED DATE]01.22.16 Verified By:Nella Evans (Electronic Signature) Blood specimen (specimen) 01/11/2016 9:04 AM EDT 01/11/2016 9:45 AM EDT Narrative Resulting Agency Comment Spec In Lab Que Amaro MD HEMATOLOGY ORD ERABLES [facility] [place] [address] * Differential, Automated (01/11/2016 9:04 AM EDT) Neutrophil % 69.7 % [facility] Neutrophil Absolute 3.82 1.50 - 6.30 x10(3)/[facility] Lymph % 21.2 % [facility] Lymphocytes Abs 1.2 1.0 - 3.6 x10(3)/[facility] Monocyte % 5.1 % [facility] Monocyte Abs 0.3 0.2 - 1.0 x10(3)/[facility] Eos % 1.8 % [facility] Eosinophils Abs 0.1 0.0 - 0.5 x10(3)/[facility] Basophil % 2.0 % [facility] Baso Absolute 0.1 0.0 - 0.2 x10(3)/[facility] Immature Gran % 0.20 % [facility] Comment: Immature granulocytes(IG's)percentage and absolute count will include metamyelocytes, myelocytes, and promyelocytes. Blood smears from CBCs yielding IG's will be scanned manually for concordance. If this scan disagrees with the automated IG or if promyelocytes are noted, a manual differential will be performed. Immature Gran Absolute 0.01 0.00 - 0.05 x10(3)/[facility] Blood specimen (specimen) 01/11/2016 9:04 AM EDT 01/11/2016 9:11 AM EDT Narrative Resulting Agency Comment Spec In Lab Que Amaro MD HEMATOLOGY ORD ERABLES Performing Organization Address City/[facility]/ZIP Co de Phone Number [facility] [place] [address] * (ABNORMAL) Hemogram (01/11/2016 9:04 AM EDT) White Blood Cell 5.5 4.0 - 10.0 x10(3)/mc L [facility] Red Blood Cell 4.47(L) 4.63 - 6.08 x10(6)/mc L [facility] Hemoglobin 14.0 13.7 - 17.5 gm/dL [facility] Hematocrit 40.9 40.0 - 51.0 % [facility] Mean Cell Volume 91.5 79.0 - 92.0 fL [facility] Mean Cell Hemoglobin 31.3 25.6 - 32.2 pg [facility] Mean Cell Hemoglobin Concentration 34.2 32.0 - 36.5 gm/dL [facility] Platelet 180 145 - 370 x10(3)/mc L [facility] RDW Standard Deviation 47.2(H) 35.0 - 46.0 fL [facility] RDW coefficient of variation 14.4 10.9 - 14.4 % [facility] Mean Platelet Volume 9.7 9.0 - 12.0 fL [facility] Blood specimen (specimen) 01/11/2016 9:04 AM EDT 01/11/2016 9:11 AM EDT Narrative Resulting Agency Comment Spec In Lab Que Amaro MD HEMATOLOGY ORD ERABLES Performing Organization Address City/[facility]/ZIP Co de Phone Number [facility] [place] [address] * (ABNORMAL) Comprehensive metabolic panel (non-fasting) (01/11/2016 9:04 AM EDT) Glucose 207(H) 65 - 199 mg/dL [facility] Comment:Diabetes: >=200 mg/d L plus symptoms Blood Urea Nitrogen 21(H) 10 - 20 mg/dL [facility] Creatinine 2.12(H) 0.80 - 1.50 mg/dL [facility] Comment: Please note that the pediatric reference intervals supplied above were not validated at [facility]. Results from pediatric patients should be interpreted in conjunction to the patient's age, height and muscle mass. Sodium 142 135 - 145 mmol/L [facility] Potassium 4.2 3.5 - 5.0 mmol/L [facility] Comment: Please note: ??Patients with WBC >100,000 may have falsely elevated Potassium levels. ??For accurate Potassium quantification in these patients send serum separator tube (gold top) for subsequent determinations. ??Contact the Clinical Chemistry Laboratory if there are any questions. Chloride 100 98 - 107 mmol/L [facility] Carbon Dioxide 27 22 - 31 mmol/L [facility] Anion Gap 15 5 - 15 mmol/L [facility] Calcium 9.6 8.5 - 10.5 mg/dL [facility] Protein, Total 7.8 6.1 - 8.0 gm/dL [facility] Albumin 4.3 3.2 - 5.2 gm/dL [facility] Aspartate Aminotransferase 19 0 - 39 unit/L [facility] Alanine Aminotransferase 13 0 - 55 unit/L [facility] Alkaline Phosphatase 77 40 - 120 unit/L [facility] Bilirubin, Total 1.1 0.2 - 1.3 mg/dL [facility] Bilirubin, Direct 0.3 0.0 - 0.3 mg/dL [facility] Est Glomerular Filtration Rate 31(L) >=60 [facility] Comment: This estimated [...] the following links into your internet browser. [email or web address] Blood specimen (specimen) 01/11/2016 9:04 AM EDT 01/11/2016 9:10 AM EDT Narrative Resulting Agency Comment Spec In Lab Que Amaro MD CHEMISTRY ROCHELLE JENNINGS Performing Organization Address [facility] Co de Phone Number [facility] [place] [address] * (ABNORMAL) Magnesium (01/11/2016 9:04 AM EDT) Magnesium 0.46(L) 0.69 - 1.07 mmol/L [facility] Blood specimen (specimen) 01/11/2016 9:04 AM EDT 01/11/2016 9:10 AM EDT Narrative Resulting Agency Comment Spec In Lab Que Amaro MD CHEMISTRY ROCHELLE JENNINGS Performing Organization Address [facility] Co de Phone Number [facility] [place] [address] * Phosphorus (01/11/2016 9:04 AM EDT) Phosphorus 2.7 2.5 - 4.5 mg/dL [facility] Blood specimen (specimen) 01/11/2016 9:04 AM EDT 01/11/2016 9:10 AM EDT Narrative Resulting Agency Comment Spec In Lab Que Amaro MD CHEMISTRY ROCHELLE JENNINGS Performing Organization Address City/[facility] Co de Phone Number [facility] [place] [address] * (ABNORMAL) Uric acid (01/11/2016 9:04 AM EDT) Uric Acid 8.8(H) 3.5 - 8.5 mg/dL [facility] Blood specimen (specimen) 01/11/2016 9:04 AM EDT 01/11/2016 9:10 AM EDT Narrative Resulting Agency Comment Spec In Lab Que Amaro MD CHEMISTRY ROCHELLE JENNINGS Performing Organization Address [facility] Co de Phone Number [facility] [place] [address] * Tacrolimus level (01/11/2016 9:04 AM EDT) Pathologist [facility] Tacrolimus 9.7 ng/mL [facility] Comment:Trough therapeutic: 5-15 ng/mL Blood specimen (specimen) 01/11/2016 9:04 AM EDT 01/11/2016 10:45 AM EDT Narrative Resulting Agency Comment Spec In Lab Que Amaro MD CHEMISTRY ORDBhargav JENNINGS Performing Organization Address [facility] Co de Phone Number [facility] [place] [address] * (ABNORMAL) Reticulocyte Count (01/11/2016 9:04 AM EDT) Pathologist [facility] Reticulocyte % 2.2 0.5 - 2.4 % [facility] Retic Abs # 0.100(H) 0.027 - 0.095 x10(6)/mc L [facility] Immature Retic% 8.4 2.3 - 15.9 % [facility] Reticulated Hgb 33.3 28.5 - 38.9 pg [facility] Immature Plt % 2.3 0.0 - 7.4 % [facility] Blood specimen (specimen) 01/11/2016 9:04 AM EDT 01/11/2016 9:11 AM EDT Narrative Resulting Agency Comment Spec In Lab Que Amaro MD HEMATOLOGY ORD MILAGROS Performing Organization Address [facility]/ZIP Co de Phone Number [facility] [place] [address] * Cholesterol, total (01/11/2016 9:04 AM EDT) Cholesterol, Total 139 <=199 mg/dL [facility] Comment: Recommendations of the NCEP Adult Treatment Panel for the following risk cutoff thresholds for the [place] population: Desirable: <200 mg/dL Borderline High: 200-239 mg/dL High: > or = 240 mg/dL Blood specimen (specimen) 01/11/2016 9:04 AM EDT 01/11/2016 9:10 AM EDT Narrative Resulting Agency Comment Spec In Lab Que Amaro MD CHEMISTRY ROCHELLE JENNINGS Performing Organization Address [facility] Co de Phone Number [facility] [place] [address] documented in this encounter Visit Diagnoses Diagnosis Kidney replaced by transplant documented in this encounter Care Teams Gauge Inspector Relationship Specialty Start Date End Date Urbano Denis DO [address] [place] [address] PCP - General 09/03/12 03/17/22 Ruchi Valles RN Nurse Clinic Transplant Surgery 07/30/15 documented as of this encounter
--- OUTSIDE RECORDS SUMMARY | 2024-02-14 11:32 | XMS_ITS | Encounter Summary ---
Author Organization [facility] [place] [address] Care Team Providers Care Cleaner Carpet And Upholstery Name Role Phone Adeel Urbano KIRBY Primary Care Provider + [phone] Reason for Visit * Reason Comments Follow-up * Auth/Cert Specialty Diagnoses / Procedures Referred By Humberto flor Referred To Contact Diagnoses RAY (acute kidney injury) RAY - RO REJECTION / SP RENAL TRANSPLANT Referral ID Status Reason Start Date Expiration Date Visits Re quested Visits Authorized [id number] 1 1 Encounter Details Date Type Department Care Team (Late st Contact Info) Description 01/03/2016 11:00 AM EDT Office [place] [address] Tulio Marcelo MD [facility] [place] [address] Hepatitis C virus infection without hepatic coma, unspecified chronicity Social History Tobacco Use Types [...] as of this encounter Progress Notes * Tulio Marcelo MD - 01/03/2016 10:52 AM EDT [facility] HEPATOLOGY RETURN Patient: Cody Bolden Date of : 1950 PEDIATRIC RN: Tulio Marcelo MD PCP: URBANO DENIS DO Requesting Provider: 01/03/16 REASON FOR RETURN: HCV Cody Bolden is a 65 y.o. year old with HCV, diagnosed around November 2014. Never told had abnormal liver test no acute hepatis or jaundice. Did have peripheral edema with renal insufficiency, no ascites, encephalopathy., muscle mass loss or GI bleeding. Outside fibroscan said to be stage 1-2 fibrosis, reading not available. Viral load 142,000. [place] 03-28-2015: cholelithiasis without acute cholecystitis. Fatty liver without mass, normal spleen. Underwent renal transplant on 09-16-2015 with HCV + donor. Hospitalized 4 times since. Has had nephroureteroostomy tube placed 12-28-2015. Creatinine at time of placement was 7.29 has decreased to 2.84 Past Medical History: 1. Type 2 DM on neither insulin or oral hypoglycemics; controlled by diet and weight loss 2. Hypertension 3. Microhematuria 4. H/o colon polyp 5. Hep C without cirrhosis 6. GERD 7. Stroke 8. ESRD on HD; uses HD chest cath (right) Renal biopsy: diabetic and ischemic nephropathy Bacteremia due to infected HD cath 9. BPH MEDICATIONS Current Outpatient Prescriptions Medication Sig Dispense Refill ??? mycophenolate (CELLCEPT) [...] 2 tablets by mouth 4 times daily. ??? tamsulosin (FLOMAX) 0.4 mg [...] as needed for Pain.30 tablet 1 ??? polyethylene glycol (MIRALAX) 17 gram Powder in Packet Take 17 g by mouth daily. 14 each 0 ??? DILTiazem (DILTIAZEM CD) 120 mg Capsule, Sust. Release 24 hr Take 1 capsule by mouth daily. 30 capsule 11 ??? clopidogrel (PLAVIX) 75 mg Tablet Take 1 tablet by mouth daily. 30 tablet 0 ??? ONE TOUCH ULTRA TEST Strip 0 ??? ONE TOUCH ULTRAMINI Kit 0 ??? ONE TOUCH DELICA LANCETS 30 gauge Misc 0 No current facility-administered medications for this visit. 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 (-) service (+) [id number], airgun vaccines Blood Transfusions (-) Close contact with Hepatitis Relationship (+) cousan [phone]. never tested PHYSICAL EXAM There were no vitals filed for this visit. There is no height or weight on file to calculate BMI. Constitutional: Well appearing Skin: no cyanosis, , no spider angiomata, no conte erythema, no jaundice HEENT : PERRLA, sclera anicteric normocephalic, monique-pharynx within noral limits Neck/Nodes:: No adenopathy or thyromegaly Cardiovascular: RRR, no murmurs, no S3 S4 or murmur Respiratory: clear to auscultation and percussion, no wheezes, no rales GI: + bowel sounds, nontender, nondistended, no hepatosplenomegaly, no masses, no evidence of ascites, no umbilical hernia, caput medussae Musculoskeletal: no muscle wasting, no arthritis. Dialysis port present Neuro: alert and oriented x 3, nonfocal, no asterixis or tremor Extremities: No edema,no clubbing RESULTS No results found for: AFP Chemistry Component Value Date/Time NA 141 01/03/2016 0749 K 4.1 01/03/2016 0749 CL 103 01/03/2016 0749 CO2 22 01/03/2016 0749 BUN 27 (H) 01/03/2016 0749 CREATININE 2.84 (H) 01/03/2016 0749 Component Value Date/Time CALCIUM 9.2 01/03/2016 0749 ALKPHOS 74 12/28/2015 0914 AST 16 12/28/2015 0914 ALT 11 12/28/2015 0914 BILITOT 0.7 12/28/2015 0914 Lab Results Component Value Date WBC 4.7 01/03/2016 HGB 13.7 01/03/2016 HCT 39.7 (L) 01/03/2016 MCV 92.1 (H) 01/03/2016 PLATELET 202 01/03/2016 Lab Results Component Value Date INR 1.0 01/02/2016 Fibroscan Results: 05-16-2015 Mean kPa: 6.1 Mean IQR: (goal is <30 %) 17% Success rate: (goal is >60%) 100% Predicted fibrosis stage: Stage 1-2 ASSESSMENT/PLAN Cody Bolden is a 65 y.o. with HCV and Non alcoholic liver disease. He has no advanced fibrosis by history and there are no concerning physical findings. The plt count is normal and his liver enzymes are normal. Fibroscan is suggested of early stage disease 1.Liver disease. Early stage, likely has underlying fatty liver disease given obesity hypertension,DM. But normal liver enzymes suggest he has does not have active inflammation and SUMMERS. Will obtainfibrosure, if this too is suggestive of low stage fibrosis would not recommend liver biopsy at thistime 2. HCV. GT1a. Received a HCV + donor so will need to make sure there is no change in genotype, which would change treatment approach. -Currently there are 4 treatment options for him if he is GT1a Given renal insufficiency can not use Harvoni, which would be simplest approach. VIKIERA KATIUSKA has multiple drug interatctions and would require ribavirin, which I would like to avoid. ZEPATIER can be used with renal insufficiency but would require mutations for NS5A, if present would need to use ribavirin and 16 weeks again not ideal. Epclusa has just been approved -Any medication combination would require stable clinical picture to avoid missing doses or medication additions which could reduce drug levels. -Would favor confirming GT (pending) adding NS5A mutation test and readdressing in 3 months when clinically stable 3. NAFLD. Recommend diet exercise and weight loss. Tulio Marcelo MD Section of Gastroenterology and Hepatology [facility] [place] [address] V: [phone] F: [phone] Copy: URBANO DENIS DO 25 of this 30 minute visit in face to face discussion regarding disease, prognosis and treatment documented in this encounter Plan of Treatment Upcoming Encounters Date Type Department Care Team (Late st Contact Info) Description 04/15/2024 10:00 AM EDT Hospital Encounter Non-Invasive [place] [address] Arrived documented as of this encounter Results * Miscellaneous Lab request (01/04/2016 1:55 PM EDT) Label Request received in lab. [facility] Blood specimen (specimen) 01/04/2016 1:55 PM EDT 01/04/2016 5:54 PM EDT Narrative Resulting Agency Comment Spec In Lab Tulio Marcelo MD LAB SEND OUT ORDERA BLES [facility] [place] [address] documented in this encounter Visit Diagnoses Diagnosis Hepatitis C virus infection without hepatic coma, unspecified chronicity documented in this encounter Care Teams Cleaner Carpet And Upholstery Relationship Specialty Start Date End Date Urbano Denis DO [address] [place] [address] PCP - General 09/03/12 03/17/22 Ruchi Valles RN Nurse Clinic Transplant Surgery 07/30/15 documented as of this encounter
--- OUTSIDE RECORDS SUMMARY | 2024-02-14 11:32 | XMS_ITS | Encounter Summary ---
Author Organization [facility] [place] [address] Care Team Providers Care Laborer Demolition Name Role Phone AdeelUrbano boland Primary Care Provider + [phone] Encounter Details Date Type Department Care Team (Late st Contact Info) Description 01/09/2016 Telephone Solid [place] [address] Victor Manuel Torre MD [facility] [place] [address] Social History Tobacco Use Types Packs/Day Years [...] encounter Miscellaneous Notes * Telephone Encounter - Victor Manuel Torre MD - 01/09/2016 4:14 PM EDT I called Mr. Bolden to inform him that his urine culture returned with no growth. He can discontinue the ciprofloxacin. He otherwise reports that he is doing well with the nephroureterostomy cappedand has been voiding significant volumes in the morning and smaller volumes throughout the day. We will follow up with him in the Transplant clinic this coming Thursday. documented in this encounter Plan of Treatment Upcoming Encounters Date Type Department Care Team (Late st Contact Info) Description 04/15/2024 10:00 AM EDT Hospital Encounter [place] [address] Arrived documented as of this encounter Visit Diagnoses Not on filedocumented in this encounter Care Teams Laborer Demolition Relationship Specialty Start Date End Date Urbano Denis DO [address] [place] [address] PCP - General 09/03/12 03/17/22 Ruchi Valles RN Nurse Clinic Transplant Surgery 07/30/15 documented as of this encounter
--- OUTSIDE RECORDS SUMMARY | 2024-02-14 11:32 | XMS_ITS | Encounter Summary ---
[place] [address] Care Team Providers Care Core Winder Machine Operator Name Role Phone Urbano Denis DO Primary Care Provider + [phone] Reason for Referral * Diagnostic Test (Routine) - Closed Specialty Diagnoses / Procedures Referred By Humberto flor Referred To Contact Radiology Diagnoses Kidney replaced by transplant Procedures IR all procedures Victor Manuel Torre MD [facility] [place] [address] [place] [address] Referral ID Status Reason Start Date Expiration Date V isits Requested Visits Authorized [id number] Closed Specialty Service Requested 01/31/2016 01/30/2017 1 1 Encounter Details Date Type Department Care Team (Late st Contact Info) Description 01/11/2016 10:30 AM EDT Office Visit [place] [address] Que Amaro MD [facility] [place] [address] Kidney replaced by transplant; Hypothyroidism, unspecified type [...] Sign Reading Time Taken Comments Blood Pressure 122/69 01/11/2016 10:34 AM EDT Pulse 68 01/11/2016 10:34 AM EDT Temperature - - Respiratory Rate - - Oxygen Saturation 99% 01/11/2016 10:34 AM EDT Inhaled Oxygen Concentration - - Weight 95.8 kg (211 lb 3.2 oz) 01/11/2016 10:34 AM EDT Height 180.3 cm (5' 11) 01/11/2016 10:34 AM EDT Body Mass Index 29.46 01/11/2016 10:34 AM EDT documented in this encounter Progress Notes * Herlinda Bell, RD - 01/11/2016 1:06 PM EDT [facility] Post Transplant Nutrition Follow Up Date: 01/11/2016 Patient: Cody Bolden Transplant Date: 09/16/15 [place] organ [facility] diagnosis: Transplant: Mr. Cody Bolden is a White Not nor 65 y.o. male who is Status Post Kidney transplantation on 09/16/15. Patient was seen by Nutrition services on 01/11/2016 for follow up. Wt Readings from Last 3 Encounters: 01/11/16 95.8 kg (211 lb 3.2 oz) 01/04/16 94.8 kg (209 lb) 01/03/16 96.2 kg (212 lb) Today's vital signs: BP 122/69 Pulse 68 Ht 180.3 cm (5' 11) Wt 95.8 kg (211 lb 3.2 oz) SpO2 99% BMI 29.46 kg/m2 Estimated body mass index is 29.46 kg/(m^2) as calculated from the following: Height as of this encounter: 180.3 cm (5' 11). Weight as of this encounter: 95.8 kg (211 lb 3.2 oz). Weight pre-Txp: 100.7 Kg (222 lbs) Lab Results Component Value Date HGB 14.0 01/11/2016 HCT 40.9 01/11/2016 NA 142 01/11/2016 K 4.2 01/11/2016 BUN 21 (H) 01/11/2016 CREATININE 2.12 (H) 01/11/2016 GLUCOSE 207 (H) 01/11/2016 CALCIUM 9.6 01/11/2016 MAGNESIUM 0.46 (L) 01/11/2016 PHOS 2.7 01/11/2016 ALBUMIN 4.3 01/11/2016 Cholesterol (in eD-H the component name CHLPL=Cholesterol) Lab Results Component Value Date CHLPL 139 01/11/2016 Assessment: This development writer reviewed patient's blood chemistries with him. All is appropriate except for very low serum magnesium level. I reviewed magnesium-rich foods with him and provided recipe for the trail mix. Plan: Follow up next clinic visit and prn. * Victor Manuel Torre MD - 01/11/2016 11:17 AM EDT Clinic Follow-up: Transplant? Date:?? 01/11/2016 ?? Patient:?? Cody Bolden? Date of Transplant: ?? 09/16/2015?? Transplant Type:?? Kidney? History of Present Illness: ? Mr. Bolden is a Hep C positive 65-yo male with a history of donor kidney transplantationfrom a hep C positive donor on 09/16/15. 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 He was recently admitted during which time he underwent nephroureterostomy placement. He has been doing well at home, taking in about 3 Liters per day and voiding 2.5 Liters per day. His nephroureterostomy remains capped without issue. He did have a urinalysis with pyuria at his last clinic visit and was started on cipro, but his culture came back negative so this was discontinued. He has no symptoms of dysuria, fevers, or chills. His creatinine continues to improve (2.12 today). H is electrolytes are wnl except for his magnesium, which is low (0.46). Of note, he is BK virus positive; a quantitative level is pending to help guide immunosuppression. Regarding his ureteral stricture, Urology has requested that he undergo repeat anterior nephrostogram with upsizing of his stent four weeks after discharge; he is currently scheduled to undergo this procedure on January 30. ?? Patient Active Problem List? Diagnosis?? Date Noted? UTI (urinary tract infection)?? 12/07/2015? RAY (acute kidney injury)?? 11/27/2015? Kidney transplant infection?? 11/12/2015? Renal failure?? 09/16/2015? Chronic kidney disease, stage V?? 05/29/2015? HCV (hepatitis C virus)?? 05/16/2015? ESRD (end stage renal disease)?? 04/27/2015? Hepatitis C virus infection?? 01/04/2015? Essential hypertension?? 11/10/2014? CGN (chronic glomerulonephritis)?? 10/16/2014? DM type 2 (diabetes mellitus, type 2)?? 09/03/2012? Hypertension?? 09/03/2012? DJD (degenerative joint disease)?? 09/03/2012? Hematuria?? 09/03/2012? Past Medical History?? Diagnosis?? Date? Back pain? Colon polyp? CVA (cerebral vascular accident)? Per report but no deficits? ESRD (end stage renal disease)? GERD (gastroesophageal reflux disease)? HTN (hypertension)? Microhematuria? Type 2 diabetes mellitus? Past Surgical History?? Procedure?? Laterality?? Date? Pro anastomosis, av, any site?? Left?? 05/09/2015? AV FISTULA CREATION, DIRECT HEMODIALYSIS, ANY SITE, EG ASHWINI FISTULA UPPER EXTREMITY performed by Que Amaro MD at [facility] OR? Pro transplantation of kidney?? N/A?? 09/16/2015? @KIDNEY TRANSPLANT, WITHOUT RECIPIENT NEPHRECTOMY performed by Frnako Larkin MD at [facility] OR? Pro transplant, prep cadaver renal graft?? N/A?? 09/16/2015? @PREPARATION CADAVERIC RENAL ALLOGRAFT performed by Franko Larkin MD at [facility] OR? N/A?? 09/16/2015? ORGAN ACQUISITION RENAL, CADAVERIC performed by Franko Larkin MD at [facility] OR? Vitals: 01/11/16 1034 BP: 122/69 Pulse: 68 ?? ROS:?? Review of Systems 12 point ROS is negative except as per HPI Physical Exam:?? General: AOx3 HEENT: NCAT CV: RRR Pulm: CTABIL Abd: Soft, NT/ ND. Nephrostomy tube site without signs of infection Ext: No edema Neuro: Grossly intact ?? A/P: Mr. Bolden is tolerating the capped nephroureterostomy and doing well overall. He is scheduled for an IR nephrostogram with upsizing of the tube on January 30 at 8:30 am; we will have him follow-up in clinic later that day. We would like him to touch base with his PCP regarding his Synthroid dosing as he states he has not had adjustments in a long while; we will send a TSH at his next clinic visit. ?? 1. Immunosuppression regiment: Tacrolimus: 1 mg bid MMF: 250 mg bid BK quantitative count pending; may d/c MMF depending on level. Prograf level pending. 2. Hypertension management: Diltiazem only. Hypotension improved. 3. Electrolyte replacement: reviewed, increase mag gluconate to 4 pills bid 4. TSH ordered for next visit; pt should touch base with PCP 5. Prophylaxis: Increase Bactrim to daily 4. Follow-up: Labs: [x] with next clinic [] as outpatient in 7 days Clinic: January 30 after nephrostogram IR Nephrostogram: January 30, at 8:30 am Urology: February 04, at 10 am 5. Pharmacy needs assessed. No new prescriptions needed Discussed with Dr. Amaro ?? Victor Manuel Torre M.D. PGY-4 Pager [phone] ?? I have seen the patient and reviewed the resident's above history and I agree with the details as written. The assessment and plan were formulated in discussion with me and I agree with them as documented. --Graft function: -- Immunosuppression reviewed and adjusted: Prograf: tacrolimus level Prednisone: Cellcept: -- Hypertension management: -- Electrolytes: Calcium and phosphorus balance reviewed. Magnesium balance reviewed. -- RTC: Pharmacy needs addressed. No concerns today. I have seen the patient and reviewed the resident's above history and I agree with the details as written. The assessment and plan were formulated in discussion with me and I agree with them as documented. Mr. Bolden looks great today. His creatinine is now down to 2.1 and he is voiding spontaneously with the NU tube capped without issues. No cloudy urine, no dysuria. We stopped the empiric antibiotic coverage earlier this week after starting it empirically based upon his last UA. The urine WBC ct is down to 6 today. No fevers or rigors. I reviewed and adjusted his immunosuppression today: Prograf 07/06, no adjustment today . Level was 9 Cellcept 250 mg po bid Sent repeat BKV testing today. He had a positive test in the blood just over a week ago and his Cellcept dose was reduced. Will consider discontinuation of Cellcept altogether if the counts are rising. Stable, RTC in two weeks for repeat evaluation at which time he will have a repeat nephrostogram and upsize of his nephrostomy tube along with a Urology followup appointment. documented in this encounter Plan of Treatment Upcoming Encounters Date Type Department Care Team (Late st Contact Info) Description 04/15/2024 10:00 AM EDT Hospital Encounter [place] [address] Arrived documented as of this encounter Results * (ABNORMAL) TSH (03/25/2016 9:59 AM EDT) Thyroid Stimulating Hormone 5.38(H) 0.27 - 4.20 mcIU/mL [facility] Blood specimen (specimen) 03/25/2016 9:59 AM EDT 03/25/2016 10:12 AM EDT Narrative Resulting Agency Comment Spec In Lab Que Amaro MD CHEMISTRY ROCHELLE JENNINGS [facility] [place] [address] * IR all procedures (02/01/2016 11:37 AM [...] was prepped and draped in supine position. Behavioral Health Assistant image obtained. ??7 cc 1% lidocaine SQ [...] in 2-4 weeks. ?? Fellow: Jaylin Moreira, Attending: ??Jade Nelson MD (I was present and scrubbed for the entire procedure) ? Que Amaro MD IMG IR ORDERAB LES * (ABNORMAL) Protein/Creatinine Ratio, urine (01/11/2016 9:33 AM EDT) Creatinine, Urine 114 mg/dL [facility] Protein, Urine 33(H) 0 - 12 mg/dL [facility] Protein / Creatinine Ratio, Urine 0.3 ratio [facility] Urine specimen (specimen) 01/11/2016 9:33 AM EDT 01/11/2016 9:41 AM EDT Narrative Resulting Agency Comment Spec In Lab Que Amaro MD URINE ORDERABL ES [facility] [place] [address] * (ABNORMAL) Urinalysis with reflex Culture (01/11/2016 9:33 AM EDT) Glucose, Urine Dipstick Negative Negative mg/dL [facility] Protein, Urine Dipstick 30(A) Negative mg/dL [facility] Bilirubin, [...] [facility] Blood, Urine Dipstick Small(A) Negative mg/dL [facility] Ketone, Urine Dipstick Negative Negative mg/dL [facility] Nitrite, Urine Dipstick Negative Negative [facility] Leukocytes, Urine Dipstick Small(A) Negative [facility] Appearance, Urine Dipstick Clear Clear [facility] Specific [place] Urine Automated 1.015 1.002 - 1.030 [facility] Color, Urine Dipstick Yellow Yellow [facility] RBC, Urine 1 0 - 3 /HPF [facility] WBC, Urine 6(H) 0 - 3 /HPF [facility] Bacteria, Urine Rare(A) None /HPF [facility] Hyaline Casts, Urine 1 0 - 2 /LPF [facility] Reflex to Culture Yes [facility] Urine specimen (specimen) 01/11/2016 9:33 AM EDT 01/11/2016 9:41 AM EDT Narrative Resulting Agency Comment Spec In Lab Que Amaro MD URINE ORDERABL ES [facility] [place] [address] * (ABNORMAL) Comprehensive metabolic panel (non-fasting) (01/11/2016 9:04 AM EDT) Glucose 207(H) 65 - 199 mg/dL [facility] Comment:Diabetes: >=200 mg/d L plus symptoms Blood Urea Nitrogen 21(H) 10 - 20 mg/dL [facility] Creatinine 2.12(H) 0.80 - 1.50 mg/dL [facility] Comment: Please note that the pediatric reference intervals supplied above were not validated at [facility]. Results from pediatric patients should be interpreted in conjunction to the patient's age, height and muscle mass. Sodium 142 135 - 145 mmol/L [facility] [...] questions. Chloride 100 98 - 107 mmol/L [facility] Carbon Dioxide 27 22 - 31 mmol/L [facility] Anion Gap 15 5 - 15 mmol/L [facility] Calcium 9.6 8.5 - 10.5 mg/dL [facility] Protein, Total 7.8 6.1 - 8.0 gm/dL [facility] Albumin 4.3 3.2 - 5.2 gm/dL [facility] Aspartate Aminotransferase 19 0 - 39 unit/L [facility] Alanine Aminotransferase 13 0 - 55 unit/L [facility] Alkaline Phosphatase 77 40 - 120 unit/L [facility] Bilirubin, Total 1.1 0.2 - 1.3 mg/dL [facility] Bilirubin, Direct 0.3 0.0 - 0.3 mg/dL [facility] Est Glomerular Filtration Rate 31(L) >=60 [facility] Comment: This [...] the following links into your internet browser. [email or web address] Blood specimen (specimen) 01/11/2016 9:04 AM EDT 01/11/2016 9:10 AM EDT Narrative Resulting Agency Comment Spec In Lab Que Amaro MD CHEMISTRY ROCHELLE JENNINGS Performing Organization Address [facility] Co de Phone Number [facility] [place] [address] * (ABNORMAL) Magnesium (01/11/2016 9:04 AM EDT) Magnesium 0.46(L) 0.69 - 1.07 mmol/L [facility] Blood specimen (specimen) 01/11/2016 9:04 AM EDT 01/11/2016 9:10 AM EDT Narrative Resulting Agency Comment Spec In Lab Que Amaro MD CHEMISTRY ORDBhargav JENNINGS Performing Organization Address [facility] Co de Phone Number [facility] [place] [address] * Phosphorus (01/11/2016 9:04 AM EDT) Phosphorus 2.7 2.5 - 4.5 mg/dL [facility] Blood specimen (specimen) 01/11/2016 9:04 AM EDT 01/11/2016 9:10 AM EDT Narrative Resulting Agency Comment Spec In Lab Que Amaro MD CHEMISTRY ORDBhargav JENNINGS Performing Organization Address [facility] Co de Phone Number [facility] [place] [address] * (ABNORMAL) Uric acid (01/11/2016 9:04 AM EDT) Uric Acid 8.8(H) 3.5 - 8.5 mg/dL [facility] Blood specimen (specimen) 01/11/2016 9:04 AM EDT 01/11/2016 9:10 AM EDT Narrative Resulting Agency Comment Spec In Lab Que Amaro MD CHEMISTRY ORDE DICK Performing Organization Address [facility]/ZIP Co de Phone Number [facility] [place] [address] * Tacrolimus level (01/11/2016 9:04 AM EDT) Pathologist [facility] Tacrolimus 9.7 ng/mL [facility] Comment:Trough therapeutic: 5-15 ng/mL Blood specimen (specimen) 01/11/2016 9:04 AM EDT 01/11/2016 10:45 AM EDT Narrative Resulting Agency Comment Spec In Lab Que Amaro MD CHEMISTRY ORDE DICK Performing Organization Address [facility] Co de Phone Number [facility] [place] [address] * (ABNORMAL) Reticulocyte Count (01/11/2016 9:04 AM EDT) Pathologist [facility] Reticulocyte % 2.2 0.5 - 2.4 % [facility] Retic Abs # 0.100(H) 0.027 - 0.095 x10(6)/mc L [facility] Immature Retic% 8.4 2.3 - 15.9 % [facility] Reticulated Hgb 33.3 28.5 - 38.9 pg [facility] Immature Plt % 2.3 0.0 - 7.4 % [facility] Blood specimen (specimen) 01/11/2016 9:04 AM EDT 01/11/2016 9:11 AM EDT Narrative Resulting Agency Comment Spec In Lab Que Amaro MD HEMATOLOGY ORD AMANDABLES [facility] [place] [address] * Cholesterol, total (01/11/2016 9:04 AM EDT) Cholesterol, Total 139 <=199 mg/dL [facility] Comment: Recommendations of the NCEP Adult Treatment Panel for the following risk cutoff thresholds for the [place] population: Desirable: <200 mg/dL Borderline High: 200-239 mg/dL High: > or = 240 mg/dL Blood specimen (specimen) 01/11/2016 9:04 AM EDT 01/11/2016 9:10 AM EDT Narrative Resulting Agency Comment Spec In Lab Que Amaro MD CHEMISTRY ROCHELLE JENNINGS Performing Organization Address City/[facility]/ZIP Co de Phone Number [facility] [place] [address] documented in this encounter Visit Diagnoses Diagnosis Kidney replaced by transplant Hypothyroidism, unspecified type documented in this encounter Care Teams Core Winder Machine Operator Relationship Specialty Start Date End Date Urbano Denis DO [address] [place] [address] PCP - General 09/03/12 03/17/22 Ruchi Valles RN Nurse Clinic Transplant Surgery 07/30/15 documented as of this encounter
--- OUTSIDE RECORDS SUMMARY | 2024-02-14 11:32 | XMS_ITS | Encounter Summary ---
Author Organization [facility] Address [facility] [place] [address] Care Team Providers Care Senior Systems Engineer Name Role Phone Urbano Denis DO Primary Care Provider [phone] Reason for Visit * Auth/Cert Specialty Diagnoses / Procedures Referred By Humberto t Referred To Contact Diagnoses RAY (acute kidney injury) RAY - RO REJECTION / SP RENAL TRANSPLANT Referral ID Status Reason Start Date Expiration Date Visits Re quested Visits Authorized [id number] 1 1 Encounter Details Date Type Department Care Team (Late st Contact Info) Description 01/03/2016 12:33 PM EDT - 01/03/2016 11:59 PM EDT Hospital Encounter XRay at [address] [place] [address] Que Amaro MD [facility] [place] [address] H/O kidney transplant Discharge Disposition: Home Social History [...] Date mycophenolate (CELLCEPT) 250 mg Capsule Take 1 capsule by mouth 2 times daily. 01/03/2016 12/10/2016 sulfamethoxazole-trimet hoprim (BACTRIM;SEPTRA) 400-80 mg Tablet Take 1 tablet by mouth every other day for 364 days. 15 tablet 11 01/03/2016 03/20/2016 potassium phosphate, monobasic, (K-PHOS) 500 mg Tablet, Soluble Take 2 tablets by mouth 2 times daily. 1 tablet 12/13/2015 05/28/2016 valGANciclovir (VALCYTE) 450 mg Tablet Take 450 mg by mouth daily. 02/05/2016 Magnesium Gluconate 27 mg (500 mg) Tablet [...] mouth daily. 30 tablet 0 05/12/2015 05/28/2016 ONE TOUCH ULTRA TEST Strip 0 04/28/2014 01/28/2016 ONE TOUCH ULTRAMINI Kit 0 04/28/201401/04 ONE TOUCH DELICA LANCETS 30 gauge Misc 0 04/28/20142015 documented as of this encounter Plan of Treatment Upcoming Encounters Date Type Department Care Team (Late st Contact Info) Description 04/15/2024 10:00 AM EDT Hospital Encounter Non-Invasive [place] [address] Arrived documented as of this encounter Procedures Procedure Name Priority Date/Time Associated Diagnosis Comments XR ABDOMEN 1 VIEW Routine 01/03/2016 12: 55 PM EDT H/O kidney transplant documented in this encounter Results * XR Abdomen 1 [...] transplant documented in this encounter Care Teams Senior Systems Engineer Relationship Specialty Start Date End Date Urbano Denis DO [address] [place] [address] PCP - General 09/03/12 03/17/22 Ruchi Valles RN Nurse Clinic Transplant Surgery 07/30/15 documented as of this encounter
--- OUTSIDE RECORDS SUMMARY | 2024-02-14 11:33 | XMS_ITS | Encounter Summary ---
[place] [address] Care Team Providers Care Teller Vault Name Role Phone Urbano Denis DO Primary Care Provider Reason for Visit * Auth/Cert Specialty Diagnoses / Procedures Referred By Humberto flor Referred To Contact Diagnoses UTI (urinary tract infection) RECURRENT UTI/KIDNEY TX 09/2015 Referral ID Status Reason Start Date Expiration Date Visits Re quested Visits Authorized [id number] 1 1 Encounter Details Date Type Department Care Team (Latest Contact Info) Description 12/07/2015 12:00 PM EDT - 12/07/2015 11:59 PM EDT Hospital Encounter [place] [address] [place], [place] Discharge Disposition: Home Social History Tobacco Use Types Packs/Day Years Used Date Smoking Tobacco: Former Cigars Smokeless Tobacco: Never Comments:cigars, only someti mes [...] tablet by mouth 2 times daily for 12 days. 24 tablet 12/13/2015 12/25/2015 fludrocortisone (FLORINEF) 0.1 mg Tablet Take 1 tablet by mouth 2 times daily. 60 tablet 3 12/13/2015 01/03/2016 potassium phosphate, monobasic, (K-PHOS) 500 mg Tablet, [...] mouth daily. 30 capsule 11 11/15/2015 06/18/2016 mycophenolate (CELLCEPT) 250 mg Capsule Take 2 capsules by mouth 2 times daily. Kidney replaced by transplant 09/16/2015. Z94.0 120 capsule 11 11/08/2015 01/03/2016 tacrolimus (PROGRAF) 1 mg Capsule Take 1 mg by mouth 2 times daily. 05/28/2016 sulfamethoxazole-trim ethoprim (BACTRIM;SEPTRA) 400-80 mg Tablet Take 1 tablet by mouth daily for 364 days. 30 tablet 11 10/17/2015 01/03/2016 levothyroxine (SYNTHROID) 75 mcg Tablet Take 75 mcg by mouth daily. 04/23/2016 acetaminophen (TYLENOL) 325 mg Tablet Take 2 tablets by mouth every 4 hours as needed for Pain. 30 tablet 1 09/20/2015 04/23/2016 polyethylene glycol (MIRALAX) 17 gram Powder in Packet Take 17 g by mouth daily. 14 each 0 09/20/2015 01/03/2016 DILTiazem (DILTIAZEM CD) 120 mg Capsule, Sust. Release 24 hr Take 1 capsule by mouth daily. 30 capsule 11 09/17/2015 05/28/2016 clopidogrel (PLAVIX) 75 mg Tablet Take 1 tablet by mouth daily. 30 tablet 0 05/12/2015 05/28/2016 ONE TOUCH ULTRA TEST Strip 0 04/28/2014 01/28/2016 ONE TOUCH ULTRAMINI Kit 0 04/28/2014 01/28/2016 ONE TOUCH DELICA LANCETS 30 gauge Misc 0 04/28/20142015 documented as of this encounter Plan of Treatment Upcoming Encounters Date Type Department Care Team (Late st Contact Info) Description 04/15/2024 10:00 AM EDT Hospital Encounter [place] [address] Arrived documented as of this encounter Visit Diagnoses Not on filedocumented in this encounter Care Teams Teller Vault Relationship Specialty Start Date End Date Urbano Denis DO [address] [place] [address] [address] [place] [address] PCP - General 09/03/12 03/17/22 Ruchi Valles RN Nurse Clinic Transplant Surgery 07/30/15 documented as of this encounter
--- OUTSIDE RECORDS SUMMARY | 2024-02-14 11:33 | XMS_ITS | Encounter Summary ---
[place] [address] Care Team Providers Care Nursing Consultant Name Role Phone Urbano Denis DO Primary Care Provider Reason for Visit * Auth/Cert Specialty Diagnoses / Procedures Referred By Humberto t Referred To Contact Diagnoses RAY (acute kidney injury) RAY - RO REJECTION / SP RENAL TRANSPLANT Referral ID Status Reason Start Date Expiration Date Visits Re quested Visits Authorized [id number] 1 1 Encounter Details Date Type Department Care Team (Latest Contact Info) Description 12/28/2015 12:57 PM EDT - 12/28/2015 11:59 PM EDT Hospital Encounter [place] [address] Kidney replaced by transplant; RAY (acute kidney injury); Aftercare following organ transplant; Prophylactic immunotherapy Discharge Disposition: Home Social History Tobacco Use [...] by mouth 2 times daily. 01/03/2016 12/10/2016 sulfamethoxazole-trim ethoprim (BACTRIM;SEPTRA) 400-80 mg Tablet Take 1 tablet by mouth every other day for 364 days. 15 tablet 11 01/03/2016 03/20/2016 fludrocortisone (FLORINEF) 0.1 mg Tablet Take 1 [...] AM EDT Hospital Encounter [place] [phone] Arrived documented as of this encounter Procedures Procedure Name Priority Date/Time Associated Diagnosis Comments US RENAL TRANSPLANT LEFT Routine 12/28/2015 3:13 PM EDT Kidney replaced by transplant RAY (acute kidney injury) Aftercare following organ transplant Prophylactic immunotherapy documented in this encounter Results * US Renal Transplant Left (12/28/2015 3:13 PM EDT) Anatomical Region Laterality Modality Abdomen Left Ultrasound 12/28/2015 3:01 PM EDT Impressions 12/28/2015 3:32 PM EDT ??Ultrasound Dictation: 1. 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 The urinary bladder at the time of scanning was virtually empty. 2. Borderline elevated RI measurements throughout the kidney. I have viewed the images and agree with the above interpretation. ? Guy Michael MD Electronically Signed Final Report ?? 12/28/2015 03:32 pm Narrative 12/28/2015 3:32 PM EDT Transplant ?(Signed Final 12/28/2015 03:32 pm) PATIENT INFO: ID #: ? [id number] ? : [birth year] (65 yrs) Name: ? ETHEL AKINS ? Visit Date:12/28/2015 03:01 pm PERFORMED BY: Performed By: ? Kristin Fletcher RDMS Attending: ?Alec GERBER, Guy Vargas Referred By: ?TAL EAGLE MD SERVICE(S) PROVIDED: ??URTPL - Ultrasound Renal Transplant - Left - [id number] INDICATIONS: ??acute rise in creat. rule out obstruction COMPARISON: Ior 12/10/15 RENAL ALLOGRAFT: Size (cm) ? L: 12.4 ?AP: ??6.8 ? TV: ??8.0 Cortical Thickness: ? Normal Echogenicity: ? Normal Perinephric Fluid/Collections: ??No collection identified Hydronephrosis: ? Moderate and worsening RENAL TRANSPLANT DUPLEX: ? PSV ? EDV ? RI ? (cm/s) ??(cm/s) Segmental Artery ?68.4 ?12.8 ?0.81 Upper Pole: Segmental Artery ?30.9 ? 6.5 ?0.79 Mid Allograft: Segmental Artery ?30.9 ? 6.8 ?0.78 Lower Pole: Main Renal Artery ? 83.7 ?12.5 ?0.84 At Anastomosis: Main Renal Artery ?120.0 ?20.1 ?0.83 Mid: Main Renal Artery ? 85.6 ?13.4 ?0.84 At [place]: URINARY BLADDER: Pre-void (cm) ?L: 2.9 ? AP: ??3.4 ? TV: ??3.5 Vol (ml): ?18.1 Comment: ?Not distended. ??Whaley Catheter present. Procedure Note Guy Michael MD - 12/28/2015 Transplant (Signed Final 12/28/2015 03:32pm) PATIENT INFO: ID #: [id number] : [birth year] (65 yrs) Name: ETHEL AKINS Visit Date:12/28/2015 03:01 pm PERFORMED BY: Performed By: Kristin Fletcher RDMS Attending: Guy Michael MD Referred By: TAL EAGLE MD SERVICE(S) PROVIDED: URTPL - Ultrasound Renal Transplant - Left - [id number] INDICATIONS: acute rise in creat. rule out obstruction COMPARISON: Ior 12/10/15 RENAL ALLOGRAFT: Size (cm) L: 12.4 AP: 6.8 TV: 8.0 Cortical Thickness: Normal Echogenicity: Normal Perinephric Fluid/Collections: No collection identified Hydronephrosis: Moderate and worsening RENAL TRANSPLANT DUPLEX: PSV EDV RI (cm/s) (cm/s) Segmental Artery 68.4 12.8 0.81 Upper Pole: Segmental Artery 30.9 6.5 0.79 Mid Allograft: Segmental Artery 30.9 6.8 0.78 Lower Pole: Main Renal Artery 83.7 12.5 0.84 At Anastomosis: Main Renal Artery 120.0 20.1 0.83 Mid: Main Renal Artery 85.6 13.4 0.84 At [place]: URINARY BLADDER: Pre-void (cm) L: 2.9 AP: 3.4 TV: 3.5 Vol (ml): 18.1 Comment: Not distended. Whaley Catheter present. IMPRESSION Ultrasound Dictation: 1. 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 The urinary bladder at the time of scanning was virtually empty. 2. Borderline elevated RI measurements throughout the kidney. I have viewed the images and agree with the above interpretation. Guy Michael MD Electronically Signed Final Report 12/28/2015 03:32 pm Tal Eagle MD IMG US GEN ORDERA BLES documented in this encounter Visit Diagnoses Diagnosis Kidney replaced by transplant RAY (acute kidney injury) Acute kidney failure, unspecified Aftercare following organ transplant Prophylactic immunotherapy Need for prophylactic immunotherapy documented in this encounter Care Teams Nursing Consultant Relationship Specialty Start Date End Date Urbano Denis DO [facility] [address] [place] [address] PCP - General 09/03/12 03/17/22 Ruchi Valles RN Nurse Clinic Transplant Surgery 07/30/15 documented as of this encounter
--- OUTSIDE RECORDS SUMMARY | 2024-02-14 11:33 | XMS_ITS | Encounter Summary ---
Author Organization [facility] [place] [address] Care Team Providers Care Store Host Name Role Phone Urbano Denis DO Primary Care Provider [phone] Reason for Visit * Auth/Cert Specialty Diagnoses / Procedures Referred By Humberto flor Referred To Contact Diagnoses UTI (urinary tract infection) RECURRENT UTI/KIDNEY TX 09/2015 Referral ID Status Reason Start Date Expiration Date Visits Re quested Visits Authorized [id number] 1 1 Encounter Details Date Type Department Care Team (Late st Contact Info) Description 12/07/2015 8:30 AM EDT Office Visit [place] [address] Jennifer Amaro MD [facility] [place] [address] Kidney replaced by transplant Social History Tobacco [...] Sign Reading Time Taken Comments Blood Pressure 154/94 12/07/2015 8:18 AM EDT Pulse 102 12/07/2015 8:18 AM EDT Temperature 36.9 ??C (98.5 ??F) 12/07/2015 8:18 AM ED T Respiratory Rate - - Oxygen Saturation - - Inhaled Oxygen Concentration - - Weight 99 kg (218 lb 3.2 oz) 12/07/2015 8:18 AM EDT Height 177.8 cm (5' 10) 12/07/2015 8:18 AM EDT Body Mass Index 31.31 12/07/2015 8:18 AM EDT documented in this encounter Progress Notes * Jennifer Amaro MD - 12/07/2015 1:46 PM EDT Follow-Up: Transplant Clinic Date: 12/07/2015 Patient: Cody Bolden Date of Transplant: 09/16/2015 (Kidney) Transplant Surgeon: History of Present Illness: Mr. Bolden is a Hep C positive 65-yo male with a history of donor kidney transplantationfrom a hep C positive donor on 09/16/15. He has had a recent increase in his serum creatinine level in the setting of lower urinary tract obstructive symptoms and returned to clinic today for followupafter a Whaley catheter was placed on Thursday. He does not feel well today. He had rigors and vomited once in the clinic. The symptoms just began this morning. He has no had fevers. The urine in the Whaley bag is cloudy and he just completed his daptomycin course one week ago for urosepsis that he developed last month. Current Meds: No current facility-administered medications for this visit. No current outpatient prescriptions on file. Problem List: Patient Active Problem List Diagnosis [...] N17.9 ??? UTI (urinary tract infection) N39.0 Past Medical History: Past Medical History Diagnosis [...] EXTREMITY performed by Jennifer Amaro MD at [facility] MAIN OR ??? Pro transplantation of kidney N/A 09/16/2015 @KIDNEY TRANSPLANT, WITHOUT RECIPIENT NEPHRECTOMY performed by Franko Larkin MD at [facility] OR ??? Pro transplant, prep cadaver renal graft N/A 09/16/2015 @PREPARATION CADAVERIC RENAL ALLOGRAFT performed by Franko Larkin MD at [facility] MAIN OR ??? N/A 09/16/2015 ORGAN ACQUISITION RENAL, CADAVERIC performed by Franko Larkin MD at [facility] OR Family History: No family history on file. Social History: History Substance Use Topics ??? Smoking status: Former Smoker Types: Cigars ??? Smokeless tobacco: Never Used Comment: cigars, only sometimes ??? Alcohol use: No ROS: Review of Systems Constitutional: Positive for chills and fatigue. Negative for fever. All other systems reviewed and are negative. Vital Signs: BP (!) 154/94 (BP Location (NBP): Right arm, Patient Position: Sitting) Pulse 102 Temp36.9 ??C (98.5 ??F) (Oral) Ht 177.8 cm (5' 10) Wt 99 kg (218 lb 3.2 oz) BMI 31.31 kg/m2 Physical Exam: Objective: Vital signs (most recent): Blood pressure (!) 154/94, pulse 102, temperature 36.9 ??C (98.5 ??F), temperature source Oral, height 177.8 cm (5' 10), weight 99 kg (218 lb 3.2 oz). General appearance: Comfortable, ill-appearing, in no acute distress and not in pain. Lungs: Normal respiratory rate and normal effort. Drain: No Labs: Lab Results Component Value Date CREATININE 2.98 (H) 12/07/2015 K 4.6 12/07/2015 GLUCOSE 155 12/07/2015 HCT 42.0 12/07/2015 HGB 14.3 12/07/2015 WBC 5.2 12/07/2015 PHOS 3.0 12/07/2015 Assessment: Mr. Bolden does not appear well today. He arrived to the clinic with rigors and had an episode ofemesis during the clinic visit. I am going to admit him for IVF hydration and empiric antibiotic coverage. He just completed his antibiotic course for enterococcal urosepsis one week ago and has over50 WBC in the urine specimen from today. We will have the ID team weigh in on antibiotic coverage an d have sent a urine culture today. Will also send blood cultures. --Graft function: creatinine down slightly to 2.9 from 3.1 on Thursday. This is following the Whaley catheter placement. I am going to obtain a duplex of the graft to confirm that there is no evidence of hydronephrosis at this stage. The upward trend in his creatinine began around the time of his ureteral stent removal. We have had duplex studies since that event and have not demonstrated findings of jared hydronephrosis. He does endorse symptoms of retention and on Thursday was found to have a PVR of 150cc following a 200cc void. Will leave the Whaley in place. This creatinine stall in the 3range likely represents a mixed picture now that he appears to have a recurrent infectious process.Will provide IVF hydration and continue to trend daily creatinine levels while he is an inpatient. There is no acute dialysis indication at this stage. -- Immunosuppression reviewed and adjusted: Prograf: tacrolimus level is 5.6 today. I am not going to adjust the Prograf dose in the setting ofthe probable infectious process. Prednisone: none Cellcept: 500 mg po bid -- Hypertension management: no adjustments required today. He is not hypotensive in the setting of the infection. -- Electrolytes: Calcium and phosphorus balance reviewed. Magnesium balance reviewed. -- Dispo: Admit to the hospital for IVF and empiric antibiotic coverage. Probable recurrent UTI, possible urosepsis. Await culture results. Txp ID consult. Pharmacy needs addressed. No concerns today. MD: JENNIFER AMARO MD * Samia Escalante, RN - 12/07/2015 11:[address] Amaro, administered 2L normal saline over 2 hours for dehydration. Start time: 0830 End time: 1030 Total infusion: 2L Samia Escalante RN [facility] Solid Organ Transplant [id number] (Pager: [phone]) documented in this encounter Plan of Treatment Upcoming Encounters Date Type Department Care Team (Late st Contact Info) Description 04/15/2024 10:00 AM EDT Hospital Encounter Non-[place] [address] Arrived documented as of this encounter Procedures Procedure Name Priority Date/Time Associated Diagnosis Comments URINALYSIS WITH REFLEX CULTURE STAT 12/07/2015 10:20 AM EDT Kidney replaced by transplant URINE CULTURE STAT 12/07/2015 10:20 AM EDT BLOOD CULTURE Routine 12/07/2015 9:12 AM EDT Kidney replaced by transplant documented in this encounter Results * (ABNORMAL) Urine culture (12/07/2015 10:20 AM EDT) Urine Culture Greater than 100,000 cfu/ml Klebsiella oxytoca This organism expresses extended spectrum beta-lactamase which inactivates penicillins, cephalosporins, and aztreonam. (A) [facility] Organism Klebsiella oxytoca(A) [facility] Urine specimen (specimen) 12/07/2015 10:20 AM EDT 12/07/2015 10:53 AM EDT Narrative Resulting Agency Comment Spec In Lab Organism Antibiotic Method Susceptibility Klebsiella oxytoca Amikacin MICROSCAN METHOD Sensitive Klebsiella oxytoca Ampicillin MICROSCAN METHOD Resistant Klebsiella oxytoca Ampicillin + Sulbactam MICROSCAN ME THOD Resistant Klebsiella oxytoca Aztreonam MICROSCAN METHOD Resistant Klebsiella oxytoca Cefazolin MICROSCAN METHOD Resistant Klebsiella oxytoca Cefepime MICROSCAN METHOD Resistant Klebsiella oxytoca Ceftazidime MICROSCAN METHOD Resistant Klebsiella oxytoca Ceftriaxone MICROSCAN METHOD Resistant Klebsiella oxytoca Cefuroxime MICROSCAN METHOD Resistant Klebsiella oxytoca Ciprofloxacin MICROSCAN METHOD Sensitive Klebsiella oxytoca Gentamicin MICROSCAN METHOD Resistant Klebsiella oxytoca Levofloxacin MICROSCAN METHOD Sensitive Klebsiella oxytoca Meropenem MICROSCAN METHOD Sensitive Klebsiella oxytoca Nitrofurantoin MICROSCAN METHOD Sensitive Klebsiella oxytoca Piperacillin/Tazobactam MICROSCAN M ETHOD Sensitive Klebsiella oxytoca Tetracycline MICROSCAN METHOD Resistant Klebsiella oxytoca Tobramycin MICROSCAN METHOD Resistant Klebsiella oxytoca Trimethoprim/Sulfa MICROSCAN METHOD Resistant Jennifer Amaro MD MICROBIOLOGY - GENERAL ORDERABLES [facility] [place] [address] * (ABNORMAL) Urinalysis with reflex Culture (12/07/2015 10:20 AM EDT) Glucose, Urine Dipstick Negative Negative mg/dL [facility] Protein, Urine Dipstick Negative Negative mg/dL [facility] Bilirubin, [...] [facility] Blood, Urine Dipstick Small(A) Negative mg/dL [facility] Ketone, Urine Dipstick Negative Negative mg/dL [facility] Nitrite, Urine Dipstick Negative Negative [facility] Leukocytes, Urine Dipstick Trace(A) Negative [facility] Appearance, Urine Dipstick Clear Clear [facility] Specific [place] Urine Automated 1.005 1.002 - 1.030 [facility] Color, Urine Dipstick Straw Yellow [facility] RBC, Urine 2 0 - 3 /HPF [facility] WBC, Urine 5(H) 0 - 3 /HPF [facility] Bacteria, Urine Moderate(A) None /HPF [facility] Reflex to Culture Yes [facility] Urine specimen (specimen) 12/07/2015 10:20 AM EDT 12/07/2015 10:29 AM EDT Narrative Resulting Agency Comment Spec In Lab Jennifer Amaro MD URINE ORDERABL ES [facility] [place] [address] * (ABNORMAL) Blood culture (12/07/2015 9:12 AM EDT) Blood Culture Klebsiella oxytoca detected by PCR This organism expresses extended spectrum beta-lactamase which inactivates penicillins, cephalosporins, and aztreonam. Isolate saved. If future testing is required, contact the Microbiology Renal Medicine Specialist. (A) [facility] Gram Stain Bottle Growth detected in aerobic and anaerobic bottles. Gram Negative Rods seen (A) [facility] Organism Klebsiella oxytoca(A) [facility] Organism Gram Negative Rods(A) [facility] Blood specimen (specimen) 12/07/2015 9:12 AM EDT 12/07/2015 10:09 AM EDT Narrative Resulting Agency Comment Spec In Lab Organism Antibiotic Method Susceptibility Klebsiella oxytoca Amikacin MICROSCAN METHOD Sensitive Klebsiella oxytoca Ampicillin MICROSCAN METHOD Resistant Klebsiella oxytoca Ampicillin + Sulbactam MICROSCAN ME THOD Resistant Klebsiella oxytoca Aztreonam MICROSCAN METHOD Resistant Klebsiella oxytoca Cefazolin MICROSCAN METHOD Resistant Klebsiella oxytoca Cefepime MICROSCAN METHOD Resistant Klebsiella oxytoca Ceftazidime MICROSCAN METHOD Resistant Klebsiella oxytoca Ceftriaxone MICROSCAN METHOD Resistant Klebsiella oxytoca Cefuroxime MICROSCAN METHOD Resistant Klebsiella oxytoca Ciprofloxacin MICROSCAN METHOD Sensitive Klebsiella oxytoca Gentamicin MICROSCAN METHOD Resistant Klebsiella oxytoca Levofloxacin MICROSCAN METHOD Sensitive Klebsiella oxytoca Meropenem MICROSCAN METHOD Sensitive Klebsiella oxytoca Piperacillin/Tazobactam MICROSCAN M ETHOD Sensitive Klebsiella oxytoca Tetracycline MICROSCAN METHOD Resistant Klebsiella oxytoca Tigecycline MICROSCAN METHOD Sensitive Klebsiella oxytoca Tobramycin MICROSCAN METHOD Resistant Klebsiella oxytoca Trimethoprim/Sulfa MICROSCAN METHOD Resistant Jennifer Amaro MD MICROBIOLOGY - BLOOD ORDERABLES [facility] [address] * (ABNORMAL) Urinalysis with reflex Culture (12/07/2015 8:10 AM EDT) Glucose, Urine Dipstick Negative Negative [...] [facility] Blood, Urine Dipstick Large(A) Negative mg/dL [facility] Ketone, Urine Dipstick Negative Negative mg/dL [facility] Nitrite, Urine Dipstick Negative Negative [facility] Leukocytes, Urine Dipstick Large(A) Negative [facility] Appearance, Urine Dipstick Hazy(A) Clear [facility] Specific [place] Urine Automated 1.011 1.002 - 1.030 [facility] Color, Urine Dipstick Yellow Yellow [facility] RBC, Urine 38(H) 0 - 3 /HPF [facility] WBC, Urine 56(H) 0 - 3 /HPF [facility] WBC Clumps, Urine Rare(A) None /HPF [facility] Bacteria, Urine Rare(A) None /HPF [facility] Hyaline Casts, Urine 1 0 - 2 /LPF [facility] Reflex to Culture Yes [facility] Urine specimen (specimen) 12/07/2015 8:10 AM EDT 12/07/2015 8:17 AM EDT Narrative Resulting Agency Comment Spec In Lab Jennifer Amaro MD URINE ORDERABL ES Performing Organization Address [facility] Co de Phone Number [facility] [place] [address] * (ABNORMAL) Protein/Creatinine Ratio, urine (12/07/2015 8:09 AM EDT) Creatinine, Urine 97 mg/dL [facility] Protein, Urine 52(H) 0 - 12 mg/dL [facility] Protein / Creatinine Ratio, Urine 0.[address] [facility] Urine specimen (specimen) 12/07/2015 8:09 AM EDT 12/07/2015 8:15 AM EDT Narrative Resulting Agency Comment Spec In Lab Jennifer Amaro MD URINE ORDERABL ES Performing Organization Address [facility] Co de Phone Number [facility] [place] [address] * (ABNORMAL) Comprehensive metabolic panel (non-fasting) (12/07/2015 7:55 AM EDT) Glucose 155 65 - 199 mg/dL [facility] Comment:Diabetes: >=200 mg/d L plus symptoms Blood Urea Nitrogen 31(H) 10 - 20 mg/dL [facility] Creatinine 2.98(H) 0.80 - 1.50 mg/dL [facility] Comment: Please note that the pediatric reference intervals supplied above were not validated at [facility]. Results from pediatric patients should be interpreted in conjunction to the patient's age, height and muscle mass. Sodium 139 135 - 145 mmol/L [facility] Potassium 4.6 3.5 - 5.0 mmol/[facility] [...] mmol/L [facility] Anion Gap 16(H) 5 - 15 mmol/L [facility] Calcium 9.7 8.5 - 10.5 mg/dL [facility] Protein, Total 8.1(H) 6.1 - 8.0 gm/dL [facility] Albumin 4.5 3.2 - 5.2 gm/dL [facility] Aspartate Aminotransferase 24 0 - 39 unit/L [facility] Alanine Aminotransferase 22 0 - 55 unit/L [facility] Alkaline Phosphatase 76 40 - 120 unit/L [facility] Bilirubin, Total 0.9 0.2 - 1.3 mg/dL [facility] Bilirubin, Direct 0.3 0.0 - 0.3 mg/dL [facility] Est Glomerular Filtration Rate 21(L) >=60 [facility] Comment: This [...] the following links into your internet browser. [email or web address] Blood specimen (specimen) 12/07/2015 7:55 AM EDT 12/07/2015 8:01 AM EDT Narrative Resulting Agency Comment Spec In Lab Jennifer Amaro MD CHEMISTRY ROCHELLE JENNINGS [facility] Organization Address City/State/ZIP Co de Phone Number [facility] [place] [address] * (ABNORMAL) Magnesium (12/07/2015 7:55 AM EDT) Magnesium 0.65(L) 0.69 - 1.07 mmol/L [facility] Blood specimen (specimen) 12/07/2015 7:55 AM EDT 12/07/2015 8:01 AM EDT Narrative Resulting Agency Comment Spec In Lab Jennifer Amaro MD CHEMISTRY ORDiTny JENNINGS [facility] [place] [address] * Phosphorus (12/07/2015 7:55 AM EDT) Phosphorus 3.0 2.5 - 4.5 mg/dL [facility] Blood specimen (specimen) 12/07/2015 7:55 AM EDT 12/07/2015 8:01 AM EDT Narrative Resulting Agency Comment Spec In Lab Jennifer Amaro MD CHEMISTRY ORDTiny JENNINGS [facility] [place] [address] * (ABNORMAL) Uric acid (12/07/2015 7:55 AM EDT) Uric Acid 11.1(H) 3.5 - 8.5 mg/dL [facility] Blood specimen (specimen) 12/07/2015 7:55 AM EDT 12/07/2015 8:01 AM EDT Narrative Resulting Agency Comment Spec In Lab Jennifer Amaro MD CHEMISTRY ORDTiny JENNINGS [facility] [place] [address] * Tacrolimus level (12/07/2015 7:55 AM EDT) Tacrolimus 5.6 ng/mL [facility] Comment:Trough therapeutic: 5-15 ng/mL Blood specimen (specimen) 12/07/2015 7:55 AM EDT 12/07/2015 10:52 AM EDT Narrative Resulting Agency Comment Spec In Lab Jennifer Amaro MD CHEMISTRY ORDE RABLES Performing Organization Address [facility] Co de Phone Number [facility] [place] [address] * Reticulocyte Count (12/07/2015 7:55 AM EDT) Reticulocyte % 1.8 0.5 - 2.4 % [facility] Retic Abs # 0.080 0.027 - 0.095 x10(6)/mcL [facility] Immature Retic% 3.8 2.3 - 15.9 % [facility] Reticulated Hgb 34.0 28.5 - 38.[address] [facility] Immature Plt % 1.2 0.0 - 7.4 % [facility] Blood specimen (specimen) 12/07/2015 7:55 AM EDT 12/07/2015 8:01 AM EDT Narrative Resulting Agency Comment Spec In Lab Jennifer Amaro MD HEMATOLOGY ORD ERABLES Performing Organization Address [facility] Co de Phone Number [facility] [place] [address] * Cholesterol, total (12/07/2015 7:55 AM EDT) Cholesterol, Total 150 <=199 mg/dL [facility] Comment: Recommendations of the NCEP Adult Treatment Panel for the following risk cutoff thresholds for the [place] population: Desirable: <200 mg/dL Borderline High: 200-239 mg/dL High: > or = 240 mg/dL Blood specimen (specimen) 12/07/2015 7:55 AM EDT 12/07/2015 8:01 AM EDT Narrative Resulting Agency Comment Spec In Lab Jennifer Amaro MD CHEMISTRY ROCHELLE JENNINGS [facility] [place] [address] documented in this encounter Visit Diagnoses Diagnosis Kidney replaced by transplant documented in this encounter Care Teams Store Host Relationship Specialty Start Date End Date Urbano Denis DO [address] [place] [address] PCP - General 09/03/12 03/17/22 Hai STANLEY,Ruchi Nurse Clinic Transplant Surgery 07/30/15 documented as of this encounter
--- OUTSIDE RECORDS SUMMARY | 2024-02-14 11:33 | XMS_ITS | Encounter Summary ---
Author Organization [facility] [place] [address] Care Team Providers Care Lead Trainer Name Role Phone Urbano Denis DO Primary Care Provider [phone] Reason for Visit * Auth/Cert Specialty Diagnoses / Procedures Referred By Humberto flor Referred To Contact Diagnoses UTI (urinary tract infection) RECURRENT UTI/KIDNEY TX 09/2015 Referral ID Status Reason Start Date Expiration Date Visits Re quested Visits Authorized [id number] 1 1 Encounter Details Date Type Department Care Team (Latest Contact Info) Description 12/07/2015 7:30 AM EDT Laboratory Appointment Lab [address] [place] [id number] Kidney replaced by transplant Social History Tobacco [...] Hospital Encounter Non[place] [phone] Arrived documented as of this encounter Procedures Procedure Name Priority Date/Time Associated Diagnosis Comments URINALYSIS WITH REFLEX CULTURE STAT 12/07/2015 8:10 AM EDT Kidney replaced by transplant PROTEIN/CREATININE RATIO, URINE STAT 12/07/2015 8:09 AM EDT Kidney replaced by transplant HEMOGRAM STAT 12/07/2015 7:55 AM EDT Kidney replaced by transplant DIFFERENTIAL, AUTOMATED STAT 12/07/2015 7:55 AM EDT Kidney replaced by transplant TACROLIMUS LEVEL STAT 12/07/2015 7:55 AM EDT Kidney replaced by transplant RETICULOCYTE COUNT STAT 12/07/2015 7: 55 AM EDT Kidney replaced by transplant CBC (WITH DIFF) STAT 12/07/2015 7:55 AM EDT Kidney replaced by transplant URIC ACID STAT 12/07/2015 7:55 AM EDT Kidney replaced by transplant PHOSPHORUS STAT 12/07/2015 7:55 AM EDT Kidney replaced by transplant MAGNESIUM STAT 12/07/2015 7:55 AM EDT Kidney replaced by transplant CHOLESTEROL, TOTAL STAT 12/07/2015 7: 55 AM EDT Kidney replaced by transplant COMPREHENSIVE METABOLIC PANEL STAT 12/07/2015 7:55 AM EDT Kidney replaced by transplant documented in this encounter Results * (ABNORMAL) Urinalysis with reflex Culture (12/07/2015 8:10 AM EDT) Glucose, Urine Dipstick Negative Negative mg/dL [facility] Protein, Urine Dipstick 100(A) Negative mg/dL [facility] Bilirubin, Urine Dipstick Negative Negative mg/dL [facility] Comment: Clinical correlation required for positive Urine Bilirubin results as false positive may occur with some drugs and drug related products. If a false positive is suspected a serum total bilirubin should be considered if clinically indicated. Urobilinogen, Urine Dipstick Normal Normal mg/dL [facility] pH, Urn (dipstick) 6.0 5.0 - 8.0 [facility] Blood, Urine Dipstick Large(A) Negative mg/dL [facility] Ketone, Urine Dipstick Negative Negative mg/dL [facility] Nitrite, Urine Dipstick Negative Negative [facility] Leukocytes, Urine Dipstick Large(A) Negative [facility] Appearance, Urine Dipstick Hazy(A) Clear [facility] Specific [place] Urine Automated 1.011 1.002 - 1.030 [facility] Color, Urine Dipstick Yellow Yellow [facility] RBC, Urine 38(H) 0 - 3 /HPF [facility] WBC, Urine 56(H) 0 - 3 /HPF [facility] WBC Clumps, Urine Rare(A) None /HPF [facility] Bacteria, Urine Rare(A) None /HPF [facility] Hyaline Casts, Urine 1 0 - 2 /LPF [facility] Reflex to Culture Yes [facility] Urine specimen (specimen) 12/07/2015 8:10 AM EDT 12/07/2015 8:17 AM EDT Narrative Resulting Agency Comment Spec In Lab Que Amaro MD URINE ORDERABL ES [facility] [place] [address] * (ABNORMAL) Protein/Creatinine Ratio, urine (12/07/2015 8:09 AM EDT) Creatinine, Urine 97 mg/dL [facility] Protein, Urine 52(H) 0 - 12 mg/dL [facility] Protein / Creatinine Ratio, Urine 0.5 ratio [facility] Urine specimen (specimen) 12/07/2015 8:09 AM EDT 12/07/2015 8:15 AM EDT Narrative Resulting Agency Comment Spec In Lab Que Amaro MD URINE ORDERABL ES Performing Organization Address City/[facility]/ZIP Co de Phone Number [facility] [place] [address] * (ABNORMAL) Differential, Automated (12/07/2015 7:55 AM EDT) Neutrophil % 78.4 % [facility] Neutrophil Absolute 4.07 1.50 - 6.30 x10(3)/mc L [facility] Lymph % 15.0 % [facility] Lymphocytes Abs 0.8(L) 1.0 - 3.6 x10(3)/ L [facility] Monocyte % 2.3 % [facility] Monocyte Abs 0.1(L) 0.2 - 1.0 x10(3)/ L [facility] Eos % 2.9 % [facility] Eosinophils Abs 0.2 0.0 - 0.5 x10(3)/ L [facility] Basophil % 0.8 % [facility] Baso Absolute 0.0 0.0 - 0.2 x10(3)/[facility] Immature Gran % 0.60 % [facility] Comment: Immature granulocytes(IG's)percentage and absolute count will include metamyelocytes, myelocytes, and promyelocytes. Blood smears from CBCs yielding IG's will be scanned manually for concordance. If this scan disagrees with the automated IG or if promyelocytes are noted, a manual differential will be performed. Immature Gran Absolute 0.03 0.00 - 0.05 x10(3)/ L [facility] Blood specimen (specimen) 12/07/2015 7:55 AM EDT 12/07/2015 8:01 AM EDT Narrative Resulting Agency Comment Spec In Lab Que Amaro MD HEMATOLOGY ORD ERABLES Performing Organization Address City/[facility]/ZIP Co de Phone Number [facility] [place] [address] * (ABNORMAL) Hemogram (12/07/2015 7:55 AM EDT) [facility] White Blood Cell 5.2 4.0 - 10.0 x10(3)/mc L [facility] Red Blood Cell 4.47(L) 4.63 - 6.08 x10(6)/mc L [facility] Hemoglobin 14.3 13.7 - 17.5 gm/dL [facility] Hematocrit 42.0 40.0 - 51.0 % [facility] Mean Cell Volume 94.0(H) 79.0 - 92.0 fL [facility] Mean Cell Hemoglobin 32.0 25.6 - 32.2 pg [facility] Mean Cell Hemoglobin Concentration 34.0 32.0 - 36.5 gm/dL [facility] Platelet 232 145 - 370 x10(3)/mc L [facility] RDW Standard Deviation 47.4(H) 35.0 - 46.0 fL [facility] RDW coefficient of variation 13.9 10.9 - 14.4 % [facility] Mean Platelet Volume 9.7 9.0 - 12.0 fL [facility] Blood specimen (specimen) 12/07/2015 7:55 AM EDT 12/07/2015 8:01 AM EDT Narrative Resulting Agency Comment Spec In Lab Que Amaro MD HEMATOLOGY ORD ERABLES [facility] [place] [address] * (ABNORMAL) Comprehensive metabolic panel (non-fasting) (12/07/2015 7:55 AM EDT) [facility] Glucose 155 65 - 199 mg/dL [facility] Comment:Diabetes: >=200 mg/d L plus symptoms Blood Urea Nitrogen 31(H) 10 - 20 mg/dL [facility] Creatinine 2.98(H) 0.80 - 1.50 mg/dL [facility] Comment: Please note that the pediatric reference intervals supplied above were not validated at [facility]. Results from pediatric patients should be interpreted in conjunction to the patient's age, height and muscle mass. Sodium 139 135 - 145 mmol/L [facility] Potassium 4.6 3.5 - 5.0 mmol/L [facility] Comment: Please note: ??Patients with WBC >100,000 may have falsely elevated Potassium levels. ??For accurate Potassium quantification in these patients send serum separator tube (gold top) for subsequent determinations. ??Contact the Clinical Chemistry Laboratory if there are any questions. Chloride 99 98 - 107 mmol/L [facility] Carbon Dioxide 24 22 - 31 mmol/L [facility] Anion Gap 16(H) 5 - 15 mmol/L [facility] Calcium 9.7 8.5 - 10.5 mg/dL [facility] Protein, Total 8.1(H) 6.1 - 8.0 gm/dL [facility] Albumin 4.5 3.2 - 5.2 gm/dL [facility] Aspartate Aminotransferase 24 0 - 39 unit/L [facility] Alanine Aminotransferase 22 0 - 55 unit/L [facility] Alkaline Phosphatase 76 40 - 120 unit/L [facility] Bilirubin, Total 0.9 0.2 - 1.3 mg/dL [facility] Bilirubin, Direct 0.3 0.0 - 0.3 mg/dL [facility] Est Glomerular Filtration Rate 21(L) >=60 [facility] Comment: [...] the following links into your internet browser. [email or web address] Blood specimen (specimen) 12/07/2015 7:55 AM EDT 12/07/2015 8:01 AM EDT Narrative Resulting Agency Comment Spec In Lab Que Amaro MD CHEMISTRY ORDBhargav JENNINGS Performing Organization Address [facility]/ZIP Co de Phone Number [facility] [place] [address] * (ABNORMAL) Magnesium (12/07/2015 7:55 AM EDT) Magnesium 0.65(L) 0.69 - 1.07 mmol/L [facility] Blood specimen (specimen) 12/07/2015 7:55 AM EDT 12/07/2015 8:01 AM EDT Narrative Resulting Agency Comment Spec In Lab Que Amaro MD CHEMISTRY ORDBhargav JENNINGS Performing Organization Address [facility] Co de Phone Number [facility] [place] [address] * Phosphorus (12/07/2015 7:55 AM EDT) Phosphorus 3.0 2.5 - 4.5 mg/dL [facility] Blood specimen (specimen) 12/07/2015 7:55 AM EDT 12/07/2015 8:01 AM EDT Narrative Resulting Agency Comment Spec In Lab Que Amaro MD CHEMISTRY ORDE DICK Performing Organization Address [facility] Co de Phone Number [facility] [place] [address] * (ABNORMAL) Uric acid (12/07/2015 7:55 AM EDT) Uric Acid 11.1(H) 3.5 - 8.5 mg/dL [facility] Blood specimen (specimen) 12/07/2015 7:55 AM EDT 12/07/2015 8:01 AM EDT Narrative Resulting Agency Comment Spec In Lab Que Amaro MD CHEMISTRY ROCHELLE JENNINGS Performing Organization Address City/[facility] Co de Phone Number [facility] [place] [address] * Tacrolimus level (12/07/2015 7:55 AM EDT) Tacrolimus 5.6 ng/mL [facility] Comment:Trough therapeutic: 5-15 ng/mL Blood specimen (specimen) 12/07/2015 7:55 AM EDT 12/07/2015 10:52 AM EDT Narrative Resulting Agency Comment Spec In Lab Que Amaro MD CHEMISTRY ROCHELLE JENNINGS Performing Organization Address [facility] Co de Phone Number [facility] [place] [address] * Reticulocyte Count (12/07/2015 7:55 AM EDT) Reticulocyte % 1.8 0.5 - 2.4 % [facility] Retic Abs # 0.080 0.027 - 0.095 x10(6)/mcL [facility] Immature Retic% 3.8 2.3 - 15.9 % [facility] Reticulated Hgb 34.0 28.5 - 38.9 pg [facility] Immature Plt % 1.2 0.0 - 7.4 % [facility] Blood specimen (specimen) 12/07/2015 7:55 AM EDT 12/07/2015 8:01 AM EDT Narrative Resulting Agency Comment Spec In Lab Que Amaro MD HEMATOLOGY ORD ERABLES Performing Organization Address [facility] Co de Phone Number [facility] [place] [address] * Cholesterol, total (12/07/2015 7:55 AM EDT) Cholesterol, Total 150 <=199 mg/dL [facility] Comment: Recommendations of the NCEP Adult Treatment Panel for the following risk cutoff thresholds for the [place] population: Desirable: <200 mg/dL Borderline High: 200-239 mg/dL High: > or = 240 mg/dL Blood specimen (specimen) 12/07/2015 7:55 AM EDT 12/07/2015 8:01 AM EDT Narrative Resulting Agency Comment Spec In Lab Que Amaro MD CHEMISTRY ROCHELLE JENNINGS [facility] [place] [address] documented in this encounter Visit Diagnoses Diagnosis Kidney replaced by transplant documented in this encounter Care Teams Lead Trainer Relationship Specialty Start Date End Date Urbano Denis DO [address] [place] [address] PCP - General 09/03/12 03/17/22 Ruchi Valles RN Nurse Clinic Transplant Surgery 07/30/15 documented as of this encounter
--- OUTSIDE RECORDS SUMMARY | 2024-02-14 11:33 | XMS_ITS | Encounter Summary ---
Author Organization [facility] [place] [address] Care Team Providers Care Shearing Shed Hand Name Role Phone [place] Denis DO Primary Care Provider Encounter Details Date Type Department Care Team (Late st Contact Info) Description 12/29/2015 [place] [address] [facility] [place] [address] Social History Tobacco Use Types Packs/Day Years [...] as of this encounter Progress Notes * Nicholas Sim - 12/29/2015 10:44 AM EDT Images from the original note were not included. VASCULAR AND INTERVENTIONAL RADIOLOGY FOCUSED H&P and PRE-PROCEDURE NOTE: PCP: ALBANIA DENIS DO Referring Physician: Hamilton Valdez MD Planned Procedure: RLQ transplant PCN Procedure Indication: Urinary dilation with increasing creatinine Presenting Diagnosis/ Complaint: Cody Bolden is a 65 y.o. 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 He presented with a Creatinine of 7.29. He denies any fevers, chills, nausea vomiting. No pyuria, hematuria or dysuria. US demonstrated hydronephrosis requiring PCN placement. Past Medical/Surgical History: Patient Active Problem List [...] UTI (urinary tract infection) N39.0 Past Medical History Diagnosis Date ??? Back [...] [facility] ??? Pro transplantation of kidney N/A 09/16/2015 @KIDNEY TRANSPLANT, WITHOUT RECIPIENT NEPHRECTOMY performed by Franko Larkin MD at [facility] OR ??? Pro transplant, prep cadaver renal graft N/A 09/16/2015 @PREPARATION CADAVERIC RENAL ALLOGRAFT performed by Franko Larkin MD at [facility] OR ??? N/A 09/16/2015 ORGAN ACQUISITION RENAL, CADAVERIC performed by Franko Larkin MD at [facility] OR Medications: Current Facility-Administered Medications on File Prior to Visit Medication Dose Route Frequency Provider Last Rate Last Dose ??? [COMPLETED] hydrALAZINE (APRESOLINE) injection 10 mg 10 mg Intravenous Once Marcus Saravia MD 10 mg at 12/29/15 0555 ??? clopidogrel (PLAVIX) tablet 75 mg 75 mg Oral Daily Marcus Saravia MD 75 mg at 12/29/[address] ??? DILTiazem (DILTIAZEM CD) ER capsule 120 mg 120 mg Oral Daily Marcus Saravia MD 120 mg at 12/28/15 1930 ??? levothyroxine (SYNTHROID) tablet 75 mcg 75 mcg Oral QAM Marcus Saravia MD 75 mcg at 12/29/15 0520 ??? mycophenolate (CELLCEPT) capsule 500 mg 500 mg Oral BID Marcus Saravia MD 500 mg at 12/29/15905 ??? tacrolimus (PROGRAF) capsule 1 mg 1 mg Oral BID Marcus Saravia MD 1 mg at 12/29/15905 ??? valGANciclovir (VALCYTE) tablet 450 mg 450 mg Oral Daily Marcus Saravia MD 450 mg at 12/29/15905 ??? tamsulosin (FLOMAX) ER capsule 0.4 mg 0.4 mg Oral Nightly Marcus Saravia MD 0.4 mg at 109 ??? magnesium oxide (MAG-OX) tablet 800 mg 800 mg Oral TID Marcus Saravia MD 800 mg at 12/29/15905 ??? sodium chloride 0.9 % flush 5 mL 5 mL Intravenous BID Marcus Saravia MD 5 mL at 12/28/15 2100 ??? sodium chloride 0.9 % flush 5-20 mL 5-20 mL Intravenous Q1 Min PRN Marcus Saravia MD ??? lidocaine (XYLOCAINE) 10 mg/mL (1 %) injection 3 mg 0.3 mL Subcutaneous Once PRN Marcus Saravia MD ??? sodium chloride 0.9% infusion 75 mL/hr Intravenous Continuous Marcus Saravia MD 75 mL/hr at 12/29/15 0909 ??? heparin (porcine) subcutaneous injection 5,000 Units 5,000 Units Subcutaneous 2 times per day Marcus Saravia MD 5,000 Units at 12/28/152 ??? pantoprazole (PROTONIX) tablet 40 mg 40 mg Oral Daily Marcus Saravia MD 40 mg at 12/29/15 0906 Or ??? pantoprazole (PROTONIX) injection 40 mg 40 mg Intravenous Daily Marcus Saravia MD ??? acetaminophen (TYLENOL) tablet 650 mg 650 mg Oral Q4H PRN Marcus Saravia MD Current Outpatient Prescriptions on File Prior to Visit Medication Sig Dispense Refill ??? fludrocortisone (FLORINEF) 0.1 mg Tablet Take 1 tablet by mouth 2 times daily. 60 tablet 3 ??? potassium phosphate, monobasic, (K-PHOS) [...] by mouth daily. 30 capsule 11 ??? mycophenolate (CELLCEPT) 250 mg Capsule Take 2 capsules by mouth 2 times daily. Kidney replacedby transplant 09/16/2015. Z94.0 120 capsule 11 ??? tacrolimus (PROGRAF) 1 mg Capsule Take 1 mg by mouth 2 times daily. ??? sulfamethoxazole-trimethoprim (BACTRIM;SEPTRA) 400-80 mg Tablet Take 1 tablet by mouth daily for 364 days. 30 tablet 11 ??? levothyroxine (SYNTHROID) 75 mcg Tablet Take [...] TOUCH DELICA LANCETS 30 gauge Misc 0 Allergies: Review of patient's allergies indicates no known allergies. Social History and Habits: History Social History ??? Marital status: Spouse name: N/A ??? Number of children: N/A ??? Years of education: N/A Occupational History ??? Not on file. Social History Main Topics ??? Smoking status: Former Smoker Types: Cigars ??? Smokeless tobacco: Never Used Comment: cigars, only sometimes ??? Alcohol use: No ??? Drug use: No ??? Sexual activity: Not on file Other Topics Concern ??? Not on file Social History Narrative Significant Family History: No family history on file. Physical Examination: Pending Labs: Recent Results (from the past 24 hour(s)) Basic Metabolic Panel (non-fasting) Result Value Ref Range Glucose Lvl 121 65 - 199 mg/dL BUN 51 (H) 10 - 20 mg/dL Creatinine 6.98 (H) 0.80 - 1.50 mg/dL Sodium 140 135 - 145 mmol/L Potassium 4.8 3.5 - 5.0 mmol/L Chloride 105 98 - 107 mmol/L CO2 17 (L) 22 - 31 mmol/L Anion Gap 18 (H) 5 - 15 mmol/L Calcium 8.9 8.5 - 10.5 mg/dL Estimated GFR 8 (L) >=60 Hemogram Result Value Ref Range WBC 6.9 4.0 - 10.0 x10(3)/mcL RBC 4.15 (L) 4.63 - 6.08 x10(6)/mcL Hemoglobin 12.8 (L) 13.7 - 17.5 gm/dL Hematocrit 37.3 (L) 40.0 - 51.0 % MCV 89.9 79.0 - 92.0 fL MCH 30.8 25.6 - 32.2 pg MCHC 34.3 32.0 - 36.5 gm/dL Platelets 259 145 - 370 x10(3)/mcL RDWSD 44.7 35.0 - 46.0 fL RDWCV 13.7 10.9 - 14.4 % MPV 9.2 9.0 - 12.0 fL Differential, Automated Result Value Ref Range Neutrophils % 74.4 % Neutr Abs (ANC) 5.16 1.50 - 6.30 x10(3)/mcL Lymphocytes % 17.5 % Lymphocytes Abs 1.2 1.0 - 3.6 x10(3)/mcL Monocytes % 3.6 % Monocyte Abs 0.2 0.2 - 1.0 x10(3)/mcL Eosinophils % 3.3 % Eosinophils Abs 0.2 0.0 - 0.5 x10(3)/mcL Basophils % 0.9 % Basophils Abs 0.1 0.0 - 0.2 x10(3)/mcL Immature Gran % 0.30 % Ayesha Gran Abs 0.02 0.00 - 0.05 x10(3)/mcL Magnesium Result Value Ref Range Magnesium 0.63 (L) 0.69 - 1.07 mmol/L Phosphorus Result Value Ref Range Phosphorus 5.4 (H) 2.5 - 4.5 mg/dL ABO/Rh Typing Result Value Ref Range ABORh Type AB Pos Antibody screen Result Value Ref Range Ab Screen Interp Negative Expires at 2359 on: 01/01/2016 Lab Results Component Value Date WBC 6.9 12/29/2015 ANC 2.99 12/07/2015 HCT 37.3 (L) 12/29/2015 PLATELET 259 12/29/2015 INR 1.1 09/16/2015 BUN 51 (H) 12/29/2015 CREATININE 6.98 (H) 12/29/2015 ALKPHOS 74 12/28/2015 AST 16 12/28/2015 ALBUMIN 4.1 12/28/2015 BILIDIR 0.2 12/28/2015 BILITOT 0.7 12/28/2015 ALT 11 12/28/2015 PROT 7.7 12/28/2015 Imaging: ASA: Pending (to be assessed in angio the day of procedure) Mallampati Class: Pending (to be assessed in angio the day of procedure) Assessment/Plan: 65 y.o. 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 He denies any fevers, chills, nausea vomiting. No pyuria, hematuria or dysuria. US demonstrated hydronephrosis requiring PCN placement. 1) IR guided PCN placement 2) Urine sample collection for labs as per primary team Labs to be performed day of procedure: none Medication to STOP: None Sedation: Moderate sedation per IR RN protocols Prophylactic antibiotic: Pt on bactrim Additional medications for procedure: Bupivicaine/epi, omni Planned access site: Supine RLQ Position: Supine Consent: Pending NICHOLAS SIM MD Interventional Radiology 12/29/2015 documented in this encounter Plan of Treatment Upcoming Encounters Date Type Department Care Team (Late st Contact Info) Description 04/15/2024 10:00 AM EDT Hospital Encounter Non-In[place] [address] Arrived documented as of this encounter Visit Diagnoses Not on filedocumented in this encounter Care Teams Shearing Shed Hand Relationship Specialty Start Date End Date Albania Denis DO [address] [place] [address] [address] [place] [address] PCP - General 09/03/12 03/17/22 Ruchi Valles RN Nurse Clinic Transplant Surgery 07/30/15 documented as of this encounter
--- OUTSIDE RECORDS SUMMARY | 2024-02-14 11:33 | XMS_ITS | Encounter Summary ---
Author Organization [facility] [place] [address] Care Team Providers Care Client Support Representative Name Role Phone Adeel Urbano KIRBY Primary Care Provider [phone] Reason for Visit * Reason Comments Kidney Transplant Follow-up Immunotherapy Acute Kidney Injury * Auth/Cert Specialty Diagnoses / Procedures Referred By Humberto flor Referred To Contact Diagnoses RAY (acute kidney injury) RAY - RO REJECTION / SP RENAL TRANSPLANT Referral ID Status Reason Start Date Expiration Date Visits Re quested Visits Authorized [id number] 1 1 Encounter Details Date Type Department Care Team (Latest Contact Info) Description 12/28/2015 10:00 AM EDT Office Visit [place] [address] Madhu Eagle MD [facility] [place] [address] Kidney replaced by transplant; RAY (acute kidney injury); Aftercare following organ transplant; Prophylactic immunotherapy Social [...] Sign Reading Time Taken Comments Blood Pressure 144/86 12/28/2015 10:22 AM EDT Pulse 78 12/28/2015 10:22 AM EDT Temperature - - Respiratory Rate - - Oxygen Saturation 98% 12/28/2015 10:22 AM EDT Inhaled Oxygen Concentration - - Weight 98.4 kg (217 lb) 12/28/2015 10:22 AM EDT Height 177.8 cm (5' 10) 12/28/2015 10:22 AM EDT Body Mass Index 31.14 12/28/2015 10:22 AM EDT documented in this encounter Progress Notes * José Miguel Ferrer MD - 12/28/2015 10:23 AM EDT [facility] Transplant Nephrology Follow Up Ethel Akins [id number] Transplant ID: Date:? 12/28/2015?? Patient:? Ethel Akins? Transplant Date:? 09/16/2015? Last clinic visit 12/04/2015?? 65 y.o. male w/ hx of DM, HTN who is s/p donor kidney transplant 09/16/15. Patient presentsto transplant clinic for follow up of his recent admit for enterococcal bacteremia/UTI/pyelo from November 11- Rx with daptomycin then subsequent urosepsis from Klebsiella Rx'd ciprofloxacin. He has completed the ciprofloxacin. Previous tx hx: 0% PRA. Patient given Basliximab for induction. EBV +/+, CMV +/+ is here FU. Is due to see Dr. Marcelo to begin Rx for hep C (rec'd hep C + kidney transplant) Interim Hx: Had another hospitalization for recurrent fevers chills and rigor Urinary tract infection, RAY. Hisurinalysis, urine culture, and blood culture returned positive for Klebsiella. He was initially started on Zosyn for empiric coverage, which was subsequently converted to meropenem given sensitivity per infectious diseases service recommendation. This was further changed to Ciprofloxacin prior to discharge. Was discharged on 12/13/2015. Of note, after review of his pattern of Cr rise since his transplant as well as his renal US, it was felt that the most likely cause of recurrent UTI / urosepsis was due to in parts to urinary retention as well as uretero-pelvic junction obstruction. He took cipro for about 2 wks. Last dose was 3 days ago. He has been feeling ok since then. Urine out put is unchanged. He has been double voiding. He has been drinking 3 L/ day. No new OTC medication ROS: Denies fevers, chills, nausea, vomiting, diarrhea, abd pain, chest pain, sob.Denies gross hematuria, gravel passage, particulate discharge, urgency, bladder spasms. All other review of systems were neither positive or negative incl. Constitutional signs or symptoms. Medications: Prior to Admission medications Medication Sig Start Date End Date Taking? Authorizing Provider fludrocortisone (FLORINEF) 0.1 mg Tablet Take 1 tablet by mouth 2 times daily. 12/13/15 Madhu Eagle MD potassium phosphate, monobasic, (K-PHOS) 500 mg Tablet, Soluble Take 2 tablets by mouth 2 times daily. 12/13/15 Joanie Sim MD valGANciclovir (VALCYTE) 450 mg Tablet Take 450 mg by mouth daily. PROVIDER, HISTORICAL Magnesium Gluconate 27 mg (500 mg) Tablet Take 2 tablets by mouth 4 times daily. 11/16/15 Merle Alva MD tamsulosin (FLOMAX) 0.4 mg Capsule, Sust. Release 24 hr Take 1 capsule by mouth nightly. 11/15/15 11/14/16 Que Amaro MD calciTRIol (ROCALTROL) 0.5 mcg Capsule Take 1 capsule by mouth daily. 11/15/15 11/14/16 Que Amaro MD mycophenolate (CELLCEPT) 250 mg Capsule Take 2 capsules by mouth 2 times daily. Kidney replaced by transplant 09/16/2015. Z94.0 11/08/15 11/07/16 Madhu Eagle MD tacrolimus (PROGRAF) 1 mg Capsule Take 1 mg by mouth 2 times daily. PROVIDER, HISTORICAL sulfamethoxazole-trimethoprim (BACTRIM;SEPTRA) 400-80 mg Tablet Take 1 tablet by mouth daily for 364 days. 10/17/15 10/15/16 Franko Larkin MD levothyroxine (SYNTHROID) 75 mcg Tablet Take 75 mcg by mouth daily. PROVIDER, HISTORICAL acetaminophen (TYLENOL) 325 mg Tablet Take 2 tablets by mouth every 4 hours as needed for Pain. 09/20/15 Dyan Sears MD polyethylene glycol (MIRALAX) 17 gram Powder in Packet Take 17 g by mouth daily. 09/20/15 Dyan Sears MD DILTiazem (DILTIAZEM CD) 120 mg Capsule, Sust. Release 24 hr Take 1 capsule by mouth daily. 09/17/15Que chavis MD clopidogrel (PLAVIX) 75 mg Tablet Take 1 tablet by mouth daily. 05/12/15 Kendrick Del Castillo MD ONE TOUCH ULTRA TEST Strip 04/28/14 PROVIDER, HISTORICAL ONE TOUCH ULTRAMINI Kit 04/28/14 PROVIDER, HISTORICAL ONE TOUCH DELICA LANCETS 30 gauge Misc 04/28/14 PROVIDER, HISTORICAL Allergies / ADRs: No Known Allergies PHYSICAL EXAM: Vitals: 12/28/15 1022 BP: 144/86 Pulse: 78 Vitals Office Visit from 12/28/2015 in Transplant Weight - Scale 98.4 kg (217 lb) Height 177.8 cm (5' 10) BSA (Calculated - sq m) 2.2 sq meters BMI (Calculated) 31.2 Heart Rate 78 BP 144/86 SpO2 98 % Gen - AAO x 3 in NAD, normal mentation, engaging Skin - No exanthem. Xerosis, peeling oro HEENT - Mucous membranes moist. Oropharynx benign, no lesions,,exudate Chest: Lungs clear to ausculatation w/o wheezes/ rhonchi/ crackles. Heart - S1 and S2 clear w/o murmur, gallop, or rub. JVP not elevated. Abd - Soft. + BS. No bruit. Non tender. No organomegaly.Graft NT Ext - Warm. No cyanosis. No dependent edema. Labs/ Imaging: Recent Results (from the past 24 hour(s)) Urinalysis with reflex Culture Result Value Ref Range Glucose UA Negative Negative mg/dL Protein UA Negative Negative mg/dL Bilirubin UA Negative Negative mg/dL Urobilinogen UA Normal Normal mg/dL pH UA 6.0 5.0 - 8.0 Blood UA Negative Negative mg/dL Ketones UA Negative Negative mg/dL Nitrite UA Negative Negative Leukocytes UA Trace (A) Negative mcL Appearance UA Clear Clear Spec [place] UA 1.009 1.002 - 1.030 Color UA Straw Yellow RBC UA <1 0 - 3 /HPF WBC UA 6 (H) 0 - 3 /HPF Bacteria UA Rare (A) None /HPF Squam Epith UA <1 <=4 /HPF Culture Reflexed Yes Cholesterol, total Result Value Ref Range Chol, Total 172 <=199 mg/dL Reticulocyte Count Result Value Ref Range Retic Ct % 1.0 0.5 - 2.4 % Retic Ct Abs 0.040 0.027 - 0.095 x10(6)/mcL Immature Retic% 6.1 2.3 - 15.9 % Reticulated Hgb 32.7 28.5 - 38.9 pg Plat Immature % 1.4 0.0 - 7.4 % Uric acid Result Value Ref Range Uric Acid 11.4 (H) 3.5 - 8.5 mg/dL Phosphorus Result Value Ref Range Phosphorus 6.0 (H) 2.5 - 4.5 mg/dL Magnesium Result Value Ref Range Magnesium 0.67 (L) 0.69 - 1.07 mmol/L Comprehensive metabolic panel (non-fasting) Result Value Ref Range Glucose Lvl 124 65 - 199 mg/dL BUN 51 (H) 10 - 20 mg/dL Creatinine 7.29 (H) 0.80 - 1.50 mg/dL Sodium 138 135 - 145 mmol/L Potassium 5.2 (H) 3.5 - 5.0 mmol/L Chloride 100 98 - 107 mmol/L CO2 20 (L) 22 - 31 mmol/L Anion Gap 18 (H) 5 - 15 mmol/L Calcium 9.3 8.5 - 10.5 mg/dL Total Protein 7.7 6.1 - 8.0 gm/dL Albumin 4.1 3.2 - 5.2 gm/dL AST 16 0 - 39 unit/L ALT 11 0 - 55 unit/L Alk Phos 74 40 - 120 unit/L Total Bilirubin 0.7 0.2 - 1.3 mg/dL Bili, Direct 0.2 0.0 - 0.3 mg/dL Estimated GFR 8 (L) >=60 Hemogram Result Value Ref Range WBC 7.1 4.0 - 10.0 x10(3)/mcL RBC 4.28 (L) 4.63 - 6.08 x10(6)/mcL Hemoglobin 13.6 (L) 13.7 - 17.5 gm/dL Hematocrit 38.9 (L) 40.0 - 51.0 % MCV 90.9 79.0 - 92.0 fL MCH 31.8 25.6 - 32.2 pg MCHC 35.0 32.0 - 36.5 gm/dL Platelets 279 145 - 370 x10(3)/mcL RDWSD 45.7 35.0 - 46.0 fL RDWCV 13.9 10.9 - 14.4 % MPV 8.9 (L) 9.0 - 12.0 fL Differential, Automated Result Value Ref Range Neutrophils % 71.1 % Neutr Abs (ANC) 5.05 1.50 - 6.30 x10(3)/mcL Lymphocytes % 19.8 % Lymphocytes Abs 1.4 1.0 - 3.6 x10(3)/mcL Monocytes % 4.1 % Monocyte Abs 0.3 0.2 - 1.0 x10(3)/mcL Eosinophils % 3.2 % Eosinophils Abs 0.2 0.0 - 0.5 x10(3)/mcL Basophils % 1.5 % Basophils Abs 0.1 0.0 - 0.2 x10(3)/mcL Immature Gran % 0.30 % Ayesha Gran Abs 0.02 0.00 - 0.05 x10(3)/mcL Impression/ Plan: RAY superimposed upon high risk kidney transplant recipient at 3 months. 2 previous admits for urosepsis. Now appears to have completely bland urine (I reviewed it myself in the clinic), labs c/w tubulointerstitial process. This could point to: acute allergic TIN (TMP sulfa), drug induced vasculopathy and TIN (tacrolimus) or viral induced TIN (BK viral nephropathy). Plan to admit for observation: Stop KPhos Stop Florinef Stop calcitriol Hold TMP sulfa Check tacrolimus trough level Gentle IV hydrate 75 cc/hr, NS PO intake do not exceed 1500 cc Renal diet Bladder scan after every void Formal transplant ultrasound rule out extrarenal mass, fluid collection or obstruction ? Urine leak José Miguel Ferrer MD Nephrology fellow Pager # [phone] I reviewed all of the above findings and assessment of Dr. Ferrer, examined the patient and formulated the recommendations which accurately reflect mine. The above note has been edited and modified toreflect my assessment and plan. documented in this encounter Miscellaneous Notes * Addendum Note - José Miguel Ferrer MD - 12/28/2015 11:55 AM EDTAddended by: JOSÉ MIGUEL FERRER on: 12/28/2015 11:55 AM Modules accepted: Orders documented in this encounter Plan of Treatment Upcoming Encounters Date Type Department Care Team (Late st Contact Info) Description 04/15/2024 10:00 AM EDT Hospital Encounter [place] [address] Arrived documented as of this encounter Results * US Renal Transplant [...] 03:32 pm) PATIENT INFO: ID #: ? [id number] ? : 48 (65 yrs) Name: ? ETHEL AKINS ? Visit Date:12/28/2015 03:01 pm PERFORMED BY: Performed By: ? Kristin Fletcher RDMS Attending: ?Alec GERBER, Guy Vargas Referred By: ?MADHU EAGLE MD SERVICE(S) PROVIDED: ??URTPL - Ultrasound Renal Transplant - Left - [id number] INDICATIONS: ??acute rise in creat. rule out [...] Final 12/28/2015 03:32pm) PATIENT INFO: ID #: [id number] : 48 (65 yrs) Name: ETHEL AKINS Visit Date:12/28/2015 03:01 pm PERFORMED BY: Performed By: Kristin Fletcher RDMS Attending: Guy Michael MD Referred By: MADHU EAGLE MD SERVICE(S) PROVIDED: URTPL - Ultrasound Renal Transplant - Left - [id number] INDICATIONS: acute rise in creat. rule out [...] Electronically Signed Final Report 12/28/2015 03:32 pm Madhu Eagle MD IMG US GEN ORDERA BLES * (ABNORMAL) Comprehensive metabolic panel (non-fasting) (12/28/2015 9:14 AM EDT) Glucose 124 65 - 199 mg/dL [facility] Comment:Diabetes: >=200 mg/d L plus symptoms Blood Urea Nitrogen 51(H) 10 - 20 mg/dL [facility] Creatinine 7.29(H) 0.80 - 1.50 mg/dL [facility] Comment: Please note that the pediatric reference intervals supplied above were not validated at [facility]. Results from pediatric patients should be interpreted in conjunction to the patient's age, height and muscle mass. Sodium 138 135 - 145 mmol/L [facility] Potassium 5.2(H) 3.5 - 5.0 mmol/L [facility] Comment: Please note: ??Patients with WBC >100,000 may have falsely elevated Potassium levels. ??For accurate Potassium quantification in these patients send serum separator tube (gold top) for subsequent determinations. ??Contact the Clinical Chemistry Laboratory if there are any questions. Chloride 100 98 - 107 mmol/L [facility] Carbon Dioxide 20(L) 22 - 31 mmol/L [facility] Anion Gap 18(H) 5 - 15 mmol/L [facility] Calcium 9.3 8.5 - 10.5 mg/dL [facility] Protein, Total 7.7 6.1 - 8.0 gm/dL [facility] Albumin 4.1 3.2 - 5.2 gm/dL [facility] Aspartate Aminotransferase 16 0 - 39 unit/L [facility] Alanine Aminotransferase 11 0 - 55 unit/L [facility] Alkaline Phosphatase 74 40 - 120 unit/L [facility] Bilirubin, Total 0.7 0.2 - 1.3 mg/dL [facility] Bilirubin, Direct 0.2 0.0 - 0.3 mg/dL [facility] Est Glomerular Filtration Rate 8(L) >=60 [facility] Comment: This [...] the following links into your internet browser. [email or web address] Blood specimen (specimen) 12/28/2015 9:14 AM EDT 12/28/2015 9:21 AM EDT Narrative Resulting Agency Comment Spec In Lab Madhu Eagle MD CHEMISTRY ORDERAB LES Performing Organization Address City/[facility]/ZIP Co de Phone Number [facility] [place] [address] * (ABNORMAL) Magnesium (12/28/2015 9:14 AM EDT) Magnesium 0.67(L) 0.69 - 1.07 mmol/L [facility] Blood specimen (specimen) 12/28/2015 9:14 AM EDT 12/28/2015 9:21 AM EDT Narrative Resulting Agency Comment Spec In Lab Madhu Eagle MD CHEMISTRY ORDERAB LES [facility] [place] [place] [address] * (ABNORMAL) Phosphorus (12/28/2015 9:14 AM EDT) Phosphorus 6.0(H) 2.5 - 4.5 mg/dL [facility] Blood specimen (specimen) 12/28/2015 9:14 AM EDT 12/28/2015 9:21 AM EDT Narrative Resulting Agency Comment Spec In Lab Madhu Eagle MD CHEMISTRY ORDERAB LES Performing Organization Address City/[facility]/ZIP Co de Phone Number [facility] [place] [address] * (ABNORMAL) Uric acid (12/28/2015 9:14 AM EDT) Uric Acid 11.4(H) 3.5 - 8.5 mg/dL [facility] Blood specimen (specimen) 12/28/2015 9:14 AM EDT 12/28/2015 9:21 AM EDT Narrative Resulting Agency Comment Spec In Lab Madhu Eagle MD CHEMISTRY ORDERAB LES Performing Organization Address [facility] Co de Phone Number [facility] [place] [place] [address] * Tacrolimus level (12/28/2015 9:14 AM EDT) Tacrolimus 6.5 ng/mL [facility] Comment:Trough therapeutic: 5-15 ng/mL Blood specimen (specimen) 12/28/2015 9:14 AM EDT 12/28/2015 11:50 AM EDT Narrative Resulting Agency Comment Spec In Lab Madhu Eagle MD CHEMISTRY ORDERAB LES Performing Organization Address [facility] Co de Phone Number [facility] [place] [place] [address] * Reticulocyte Count (12/28/2015 9:14 AM EDT) Reticulocyte % 1.0 0.5 - 2.4 % [facility] Retic Abs # 0.040 0.027 - 0.095 x10(6)/[facility] Immature Retic% 6.1 2.3 - 15.9 % [facility] Reticulated Hgb 32.7 28.5 - 38.9 pg [facility] Immature Plt % 1.4 0.0 - 7.4 % [facility] Blood specimen (specimen) 12/28/2015 9:14 AM EDT 12/28/2015 9:21 AM EDT Narrative Resulting Agency Comment Spec In Lab Madhu Eagle MD HEMATOLOGY ORDERA BLES Performing Organization Address [facility]/ZIP Co de Phone Number [facility] [place] [address] * Cholesterol, total (12/28/2015 9:14 AM EDT) Cholesterol, Total 172 <=199 mg/dL [facility] Comment: Recommendations of the NCEP Adult Treatment Panel for the following risk cutoff thresholds for the [place] population: Desirable: <200 mg/dL Borderline High: 200-239 mg/dL High: > or = 240 mg/dL Blood specimen (specimen) 12/28/2015 9:14 AM EDT 12/28/2015 9:21 AM EDT Narrative Resulting Agency Comment Spec In Lab Madhu Eagle MD CHEMISTRY ORDERAB LES Performing Organization Address [facility] Co de Phone Number [facility] [place] [place] [address] * Protein/Creatinine Ratio, urine (12/28/2015 9:13 AM EDT) Creatinine, Urine 75 mg/dL [facility] Protein, Urine 9 0 - 12 mg/dL [facility] Protein / Creatinine Ratio, Urine 0.1 ratio [facility] Urine specimen (specimen) 12/28/2015 9:13 AM EDT 12/28/2015 9:31 AM EDT Narrative Resulting Agency Comment Spec In Lab Madhu Eagle MD URINE ORDERABLES Performing Organization Address [facility]/ZIP Co de Phone Number [facility] [place] [place] [address] * (ABNORMAL) Urinalysis with reflex Culture (12/28/2015 9:13 AM EDT) Glucose, Urine Dipstick Negative Negative [...] [facility] Leukocytes, Urine Dipstick Trace(A) Negative [facility] Appearance, Urine Dipstick Clear Clear [facility] Specific [place] Urine Automated 1.009 1.002 - 1.030 [facility] Color, Urine Dipstick Straw Yellow [facility] RBC, Urine <1 0 - 3 /HPF [facility] WBC, Urine 6(H) 0 - 3 /HPF [facility] Bacteria, Urine Rare(A) None /HPF [facility] Squamous Epithelial Cells, Urine <1 <=4 /HPF [facility] Reflex to Culture Yes [facility] Urine specimen (specimen) 12/28/2015 9:13 AM EDT 12/28/2015 9:31 AM EDT Narrative Resulting Agency Comment Spec In Lab Madhu Eagle MD URINE ORDERABLES [facility] [place] [address] documented in this encounter Visit Diagnoses Diagnosis Kidney replaced by transplant RAY (acute kidney injury) Acute kidney failure, unspecified Aftercare following organ transplant Prophylactic immunotherapy Need for prophylactic immunotherapy Kidney replaced by transplant RAY (acute kidney injury) Acute kidney failure, unspecified Aftercare following organ transplant Prophylactic immunotherapy Need for prophylactic immunotherapy documented in this encounter Care Teams Client Support Representative Relationship Specialty Start Date End Date Urbano Denis DO [address] [place] [address] PCP - General 09/03/12 03/17/22 Ruchi Valles RN Nurse Clinic Transplant Surgery 07/30/15 documented as of this encounter
--- OUTSIDE RECORDS SUMMARY | 2024-02-14 11:33 | XMS_ITS | Encounter Summary ---
Author Organization [facility] [place] [address] Care Team Providers Care Director Specialty Name Role Phone [place] Denis DO Primary Care Provider [phone] Reason for Visit * Auth/Cert Specialty Diagnoses / Procedures Referred By Humberto t Referred To Contact Diagnoses UTI (urinary tract infection) RECURRENT UTI/KIDNEY [place] 09/2015 Referral ID Status Reason Start Date Expiration Date Visits Re quested Visits Authorized [id number] 1 1 Encounter Details Date Type Department Care Team (Late st Contact Info) Description 12/07/2015 10:26 AM EDT - 12/13/2015 1:51 PM EDT Hospital Encounter [address] [place] [address] Jennifer Amaro MD [facility] [place] [address] Tal Eagle MD [facility] [place] [address] Tachycardia Discharge Disposition: Home Social History Tobacco Use [...] Sign Reading Time Taken Comments Blood Pressure 113/73 12/13/2015 11:54 AM EDT Pulse 66 12/13/2015 11:54 AM EDT Temperature 36.4 ??C (97.5 ??F) 12/13/2015 11:54 AM E DT Respiratory Rate 24 12/13/2015 11:54 AM EDT Oxygen Saturation 97% 12/13/2015 11:54 AM EDT Inhaled Oxygen Concentration - - Weight 93.9 kg (207 lb) 12/10/2015 10:54 AM EDT Height 180.3 cm (5' 11) 12/10/2015 10:54 AM EDT Body Mass Index 28.87 12/10/2015 10:54 AM EDT documented in this encounter Discharge Summaries * Tal Eagle MD - 12/13/2015 1:00 PM EDT Inpatient - Discharge Summary Patient Name: Ethel Akins Patient Age: 65 y.o. Birthdate: 1950 Admit date: 12/07/2015 Discharge date and time: 12/13/2015 Attending Physician: Tal Eagle MD Primary Diagnosis: Urinary tract infection, RAY not secondary to dehydration Secondary Diagnosis: Active Hospital Problems Diagnosis ??? UTI (urinary tract infection) Resolved Hospital Problems Diagnosis Date Resolved No resolved problems to display. Active Non-Hospital Problems Diagnosis ??? RAY (acute kidney injury) ??? Kidney [...] Hematuria HPI: Mr. 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 He was treated on a 2 week course of IV daptomycin,which he completed at the beginning of this week. Over the course of the past few days, he redeveloped fevers, chills and rigors. He had overall malaise when he returned to clinic today. His creatinine was elevated on his lab work this morning. Operations/Major Procedures: Operations: * No surgery found * * Surgery not found *: Hospital Course: Ethel Akins was admitted to the floor for management and care of his recurrent fevers chills and rigors. His urinalysis, urine culture, and blood culture returned positive for Klebsiella. He was initially started on Zosyn for empiric coverage, which was subsequently converted to meropenem given sensitivity per infectious diseases service recommendation. This was further changed to Ciprofloxacin prior to discharge. Patient's blood culture cleared by hospital day 3. He was able to achieve good fluid balance between oral intake and urine output. He remained afebrile, felt well, made good UOP, and was felt safe for discharge on hospital day 6. Of note, after review of his pattern of Cr rise since his transplant as well as his renal US, it was felt that the most likely cause of recurrentUTI / urosepsis was due to in parts to urinary retention as well as uretero-pelvic junction obstruction. However, his retention had resolved prior to discharge, and patient's UPJ obstruction will be further monitored and managed on outpatient basis with possible interventional radiology intervention. Pending Lab Data at Discharge: none Condition at Discharge: Stable Important Studies and Lab Data: Labs: Recent Results (from the past 24 hour(s)) Basic Metabolic Panel (non-fasting) Result Value Ref Range Glucose Lvl 150 65 - 199 mg/dL BUN 14 10 - 20 mg/dL Creatinine 1.68 (H) 0.80 - 1.50 mg/dL Sodium 138 135 - 145 mmol/L Potassium 3.4 (L) 3.5 - 5.0 mmol/L Chloride 98 98 - 107 mmol/L CO2 24 22 - 31 mmol/L Anion Gap 16 (H) 5 - 15 mmol/L Calcium 9.0 8.5 - 10.5 mg/dL Estimated GFR 41 (L) >=60 Basic Metabolic Panel (non-fasting) Result Value Ref Range Glucose Lvl 144 65 - 199 mg/dL BUN 16 10 - 20 mg/dL Creatinine 1.56 (H) 0.80 - 1.50 mg/dL Sodium 138 135 - 145 mmol/L Potassium 3.7 3.5 - 5.0 mmol/L Chloride 101 98 - 107 mmol/L CO2 24 22 - 31 mmol/L Anion Gap 13 5 - 15 mmol/L Calcium 8.8 8.5 - 10.5 mg/dL Estimated GFR 45 (L) >=60 Magnesium Result Value Ref Range Magnesium 0.71 0.69 - 1.07 mmol/L Phosphorus Result Value Ref Range Phosphorus 2.7 2.5 - 4.5 mg/dL Hemogram Result Value Ref Range WBC 2.8 (L) 4.0 - 10.0 x10(3)/mcL RBC 4.07 (L) 4.63 - 6.08 x10(6)/mcL Hemoglobin 12.7 (L) 13.7 - 17.5 gm/dL Hematocrit 36.8 (L) 40.0 - 51.0 % MCV 90.4 79.0 - 92.0 fL MCH 31.2 25.6 - 32.2 pg MCHC 34.5 32.0 - 36.5 gm/dL Platelets 210 145 - 370 x10(3)/mcL RDWSD 43.6 35.0 - 46.0 fL RDWCV 13.3 10.9 - 14.4 % MPV 9.7 9.0 - 12.0 fL Differential, Automated Result Value Ref Range Neutrophils % 54.5 % Neutr Abs (ANC) 1.50 1.50 - 6.30 x10(3)/mcL Lymphocytes % 28.4 % Lymphocytes Abs 0.8 (L) 1.0 - 3.6 x10(3)/mcL Monocytes % 12.0 % Monocyte Abs 0.3 0.2 - 1.0 x10(3)/mcL Eosinophils % 2.2 % Eosinophils Abs 0.1 0.0 - 0.5 x10(3)/mcL Basophils % 1.8 % Basophils Abs 0.0 0.0 - 0.2 x10(3)/mcL Immature Gran % 1.10 % Ayesha Gran Abs 0.03 0.00 - 0.05 x10(3)/mcL Tacrolimus level Result Value Ref Range Tacrolimus Lvl 5.7 ng/mL Studies: Renal US transplant Impression Transplant Kidney Summary 1. Unchanged mild pelviectasis of the transplanted kidney. No perinephric collection or complication is identified. 2. Normal intrarenal resistive indices with a patent main renal artery and vein. 3. Normal renal cortical echogenicity. CXR 12/07/15 FINDINGS: The heart is normal. The thoracic aorta is tortuous. Mediastinum is otherwise normal. There is no pleural disease. There is no evidence of a pulmonary infiltrate. IMPRESSION No evidence of active disease. Exam: Temp: [36.4 ??C (97.5 ??F)-36.9 ??C (98.4 ??F)] Heart Rate: [58-70] Resp: [16-24] BP: (113-152)/(64-74) SpO2: [94 %-99 %] I/O last 3 completed shifts: In: 4574 [P.O.:4262; I.V.:312] Out: 8865 [Urine:8865] I/O this shift: In: 1090 [P.O.:1090] Out: 125 [Urine:125] General: NAD, resting comfortably, pleasant, conversant HEENT: PERRL, anicteric sclerae CVS: +s1/s2, normal rate, regular rhythm, no murmur Pulm: Clear to auscultation in all pulliam : Clear yellow urine, voiding spontaneously Skin: warm, dry Ext: no c/c/e, cap refill <2sec Neuro: CN 2-12 grossly intact, nonfocal, moving all four extremities spontaneously Discharge to: Home Discharge Conditions/Prognosis: Stable Discharge Medications: Your Medications New Medications Dose Details ciprofloxacin 500 mg Tab Commonly known as: CIPRO Take 1 tablet by mouth 2 times daily for 12 days. 500 mg Quantity: 24 tablet Refills: 0 fludrocortisone 0.1 mg Tab Commonly known as: FLORINEF Take 1 tablet by mouth 2 times daily. 0.1 mg Quantity: 60 tablet Refills: 3 potassium phosphate (monobasic) 500 mg Tbso Commonly known as: K-PHOS Take 2 tablets by mouth 2 times daily. 1000 mg Quantity: 1 tablet Refills: 0 Continued medications, unchanged Dose Details acetaminophen 325 [...] by mouth daily. 75 mcg Refills: 0 Magnesium Gluconate 27 mg (500 mg) Tab Take 2 tablets by mouth 4 times daily. 2 tablet Refills: 0 mycophenolate 250 mg Cap Commonly known as: CELLCEPT Take 2 capsules by mouth 2 times daily. Kidney replaced by transplant 09/16/2015. Z94.0 500 mg Quantity: 120 capsule Refills: 11 ONETOUCH DELICA LANCETS 30 gauge Misc Generic drug: lancets Refills: 0 ONETOUCH ULTRA TEST Strp Generic drug: blood sugar diagnostic strips Refills: 0 ONETOUCH ULTRAMINI Kit Generic drug: blood-glucose meter Refills: 0 polyethylene glycol 17 gram Pwpk Commonly known as: MIRALAX Take 17 g by mouth daily. 17 g Quantity: 14 each Refills: 0 sulfamethoxazole-trimethoprim 400-80 mg Tab Commonly known as: BACTRIM;SEPTRA Take 1 tablet by mouth daily for 364 days. 1 tablet Quantity: 30 tablet Refills: 11 tacrolimus 1 mg Cap Commonly known as: PROGRAF Take 1 mg by mouth 2 times daily. 1 mg Refills: 0 tamsulosin 0.4 mg Cp24 Commonly known as: FLOMAX Take 1 capsule by mouth nightly. 0.4 mg Quantity: 30 capsule Refills: 11 valGANciclovir 450 mg Tab Commonly known as: VALCYTE Take 450 mg by mouth daily. 450 mg Refills: 0 Updated Allergies/ADRs: No Known Allergies Follow-up Recommendations for Providers: None PCP: ALBANIA DENIS DO Scheduled Appointments: Future Appointments Date Time Provider Department Center 12/28/2015 9:00 AM DERRICK, STEPHANIE L Lab 3L [facility] 12/28/2015 10:00 AM Tal Eagle MD Le[facility] Trans 2M [facility] 01/03/2016 10:00 AM LAB, THREE L Lab 3L [facility] 01/03/2016 11:00 AM Tulio Marcelo MD [facility] Gastro [facility] 01/03/2016 3:30 PM Byron Damon MD Leb Cardio [facility] 09/15/2016 9:00 AM LAB, THREE L Lab 3L [facility] 09/15/2016 10:00 AM Tal Eagle MD Leb Trans 2M [facility] Outpatient Services/Studies: No discharge procedures on file. Instructions Given to Patient at Discharge:. An After Visit Summary was printed and given to the patient. Patient Instructions Notify the transplant team of fever (temperature > 100.0), redness, swelling, new drainage, worse pain, nausea, vomitting, diarrhea, constipation, shaking/tremor, sleepiness, insomnia, cough, difficulty urinating, burning with urination, frequent need to urinate, chest pain, shortness of breath, or other concern. Do not start or stop any medications without notifying the transplant team. This can affect the level of your immunosuppression, which is dangerous. Orders for After Discharge: LAB DRAWS: Prior [...] any changes that need to be made. No discharge procedures on file. Provider Contact Information: If you have any questions, or need to report a problem, you can call the Solid Organ Transplant Department anytime (day, night, weekend, holiday) at [phone] . After hours, please follow the instructions on the message. You can also reach the sales coordinator after hours by calling (ask for the sales coordinator on-call). General Instructions None Provider Contact Information: [phone] Signed: JOHN DANG MD 12/13/2015 I reviewed all of the above findings and assessment of Dr. Dang, examined the patient and formulatedthe recommendations which accurately reflect mine. documented in this encounter Discharge Instructions * Patient Instructions* John Dang MD - 12/13/2015 11:40 AM EDT Notify the transplant team of fever (temperature > 100.0), redness, swelling, new drainage, worse pain, nausea, vomitting, diarrhea, constipation, shaking/tremor, sleepiness, insomnia, cough, difficulty urinating, burning with urination, frequent need to urinate, chest pain, shortness of breath, or other concern. Do not start or stop any medications without notifying the transplant team. This can affect the level of your immunosuppression, which is dangerous. Orders for After Discharge: LAB DRAWS: Prior [...] any changes that need to be made. No discharge procedures on file. Provider Contact Information: If you have any questions, or need to report a problem, you can call the Solid Organ Transplant Department anytime (day, night, weekend, holiday) at [phone] . After hours, please follow the instructions on the message. You can also reach the sales coordinator after hours by calling (ask for the sales coordinator on-call). documented in this encounter Medications [...] 0 04/28/20142015 documented as of this encounter Progress Notes * Selena Nicolas RN - 12/13/2015 1:23 PM EDT Pt being DC home at this time. All DC paperwork reviewed with pt and and all questions answered. All medications in hand prior to DC. Pt walking off the floor with in stable condition at this time. * Malina Phelan RN - 12/12/2015 4:47 PM EDT DEVORA Phelan, MSN, RN P: [phone] Service: Transplant This rehabilitation case coordinator spoke with patient and patient states he does not want Visiting nurses when he returns home. If he needs catheter supplies, he does not want to have [facility] as his supplier. Will discuss further discharge needs prior to discharge. * Tal Eagle MD - 12/12/2015 10:38 AM EDT Transplant Surgery Resident Inpatient Progress Note ID: Ethel Akins is a 65 y.o. male Hep C positive 65-yo male s/p DDKT from a hep C positive donor on 09/16/15, with recent enterococcus UTI / urosepsis treated with daptomycin, now being admittedfor fevers malaise rigors and elevated creatinine. 24hr events: ?? Elevated UOP continues ?? Weaning down IVF on 1/2 NS ?? Meropenem chnaged to PO cipro BID per ID ?? Afebrile ?? No fluid bolus ?? Eating and ambulating well ?? HD stable overnight Subjective: no complaints this AM, denies n/v/cp/sob, slept great last night, says nurses are impressed by his sleeping capacity O: Last value Range last 24hrs Temperature Temp: 36.8 ??C (98.2 ??F) Temp: [36.3 ??C (97.3 ??F)-36.8 ??C (98.2 ??F)] Heart Rate Heart Rate: 64 Heart Rate: [62-84] Blood Pressure BP: 129/71 BP: (129-151)/(60-89) Respiratory Rate Resp: 16 Resp: [16] SpO2 SpO2: 97 % SpO2: [97 %-99 %] 12/10 700 - 12/11 07 In: 4491 [P.O.:2580; I.V.:191] Out: 6410 [Urine:6410] Physical Exam: General: NAD, resting comfortably, pleasant, conversant HEENT: PERRL, anicteric sclerae CVS: +s1/s2, normal rate, regular rhythm, no murmur Pulm: Clear to auscultation in all pulliam : Clear yellow urine, moran catheter in place Skin: warm, dry Ext: no c/c/e, cap refill <2sec Neuro: CN 2-12 grossly intact, nonfocal, moving all four extremities spontaneously Recent Labs 12/12/15 0614 12/11/15 0650 12/10/15 0523 WBC 2.7* 2.6* 3.3* HGB 13.6* 12.8* 12.1* HCT 37.8* 37.0* 35.4* PLATELET 201 194 154 Recent Labs 12/12/15 0614 12/11/15 1537 12/11/15 0650 12/10/15 1512 12/10/15 0523 NA 138 138 143 144 143 K 3.5 3.7 3.5 3.8 3.3* CL 99 101 105 104 105 CO2 22 24 24 20* 23 BUN 14 15 13 14 14 CREATININE 1.49 1.68* 1.59* 1.81* 1.75* GLUCOSE 157 162 149 164 137 CALCIUM 9.0 8.4* 8.9 8.5 8.5 MAGNESIUM 0.63* 0.75 0.60* 0.78 0.59* PHOS 2.4* 2.7 2.2* 2.5 2.0* NEW IMAGING: Renal US transplant 12/10/15 Impression Transplant Kidney Summary 1. Unchanged mild pelviectasis of the transplanted kidney. No perinephric collection or complication is identified. 2. Normal intrarenal resistive indices with a patent main renal artery and vein. 3. Normal renal cortical echogenicity. Duplex renal transplant 12/07/15 Interpretation: Left: Patent transplanted renal artery with no evidence of hemodynamically significant stenosis. Patent main renal vein. CXR 12/07/15 IMPRESSION No evidence of active disease. Micro 12/08/15 Component Results ? Component Value ? Blood Culture (Abnormal) Klebsiella oxytoca isolated This organism expresses extended spectrum beta-lactamase which inactivates penicillins, cephalosporins, and aztreonam. Susceptibilities previously reported ? Gram Stain Bottle (Abnormal) Growth detected in aerobic 12/09/15 NGTD x 3 days ASSESSMENT: Ethel Akins is a 65 y.o. male s/p DDKT from a hep C positive donor 09/16/15, with recent enterococcus UTI / urosepsis treated with daptomycin, now being admitted for fevers malaise rigors and elevated creatinine. No abscess on renal imaging, and repeat blood culture preliminarily negative. It is thought that perhaps UPJ obstruction after stent removal is a contributing factor to rise in Cr as well as recurrent infection. Discussion with IR today for further imaging evaluation as well as possible re-stent for alleviate the obstruction if indeed any. Able to tolerate weaning down on fluid yesterday hemodynamically and lytes lyon, will HLIV today and monitor. Moran to come out also, patient will need to be on diligent straight cath schedule to keep bladder appropriately decompressed in addition to regular voids. If able to achieve fluid balance equilibrium with oral intake today and appropriately self-cath today, plan for discharge tomorrow onoral abx regimen. PLAN: Immunosuppression regimen Prograf 1 BID Cellcept 500 BID NEURO: tylenol prn for pain CV: good BP, monitor HD, dilt 120 qd (for prograf) PULM: RA, no issues GI: carb cont diet, encourage PO / fluids, RBO : monitor UOP, continue moran, home tamsulosin FEK: replete lytes as needed (Mg Phos), HLIV, encourage PO intake, home calcitriol, continue magnesium oxide to 800 TID ID: [id number] bactrim, meropenem, f/u ucx, blood cx cleared HEME: no sign of bleed, SQH TID, home plavix ENDO: home synthroid PT/OT: OOB PROPHYLAXIS: bactrim, RBO, PPI DISPO: 4w JOHN DANG MD 12/12/2015 Pager [phone] I reviewed all of the above findings and assessment of Dr. Dang, examined the patient and formulatedthe recommendations which accurately reflect mine. * Anatoly Chapman RN - 12/12/2015 4:01 AM EDT Pt ambulated w/ SBA to br. Denied c/o pain/discomfort throughout the night. Moran continues to yield copious amts. Light, clear, yellow urine. Resting in bed w/ eyes closed. * Herlinda Bell RD - 12/11/2015 4:09 PM EDT TRANSPLANT NUTRITION Follow-up Note Ethel Akins is a 65 year old male re-evaluated by Nutrition Services on 12/11/2015. Patient with recurrent UTI and issues with concentrating urine, perhaps due to tubular interstitial nephritis per MD. S: Appetite: Good O: Diet Order: carb-control Level 3 Weight: 93.9kg (207#) Weight Admission: 100.7kg (222#) Lab Results Component Value Date HGB 12.8 (L) 12/11/2015 HCT 37.0 (L) 12/11/2015 NA 143 12/11/2015 K 3.5 12/11/2015 BUN 13 12/11/2015 CREATININE 1.59 (H) 12/11/2015 GLUCOSE 149 12/11/2015 CALCIUM 8.9 12/11/2015 MAGNESIUM 0.60 (L) 12/11/2015 PHOS 2.2 (L) 12/11/2015 ALBUMIN 4.5 12/07/2015 Cholesterol (in eD-H the component name CHLPL=Cholesterol) Lab Results Component Value Date CHLPL 150 12/07/2015 Assessment: Patient is eating and drinking well; no nutrition issues at this time. Recommendation: Patient to be seen by [facility]ogs[employer] Inspector daily for meal choices. Check weight every other day to help monitor hydration status. Will continue to follow with team throughout hospitalization and in clinic after d/c. * Tal Eagle MD - 12/11/2015 11:07 AM EDT Transplant Surgery Resident Inpatient Progress Note ID: Ethel Akins is a 65 y.o. male Hep C positive 65-yo male s/p DDKT from a hep C positive donor on 09/16/15, with recent enterococcus UTI / urosepsis treated with daptomycin, now being admittedfor fevers malaise rigors and elevated creatinine. 24hr events: ?? Elevated UOP continues ?? Serial BCx until cx clearance ?? Zosyn changed to meropenem per ID ?? Afebrile ?? 1L bolus NS, still negative in fluid balance ?? Eating and ambulating well ?? Renal US shows mild pelviectasis but no other significant findings. Subjective: no complaints this AM, denies n/v/cp/sob, slept really well last night O: Last value Range last 24hrs Temperature Temp: 36.3 ??C (97.3 ??F) Temp: [36.3 ??C (97.3 ??F)-36.8 ??C (98.2 ??F)] Heart Rate Heart Rate: 79 Heart Rate: [62-79] Blood Pressure BP: 139/76 BP: (130-150)/(61-76) Respiratory Rate Resp: 16 Resp: [16-20] SpO2 SpO2: 97 % SpO2: [95 %-99 %] 12/09 0701 - 12/10 0700 In: 7356 [P.O.:2330; I.V.:4526] Out: 9300 [Urine:9300] Physical Exam: General: NAD, resting comfortably, pleasant, conversant HEENT: PERRL, anicteric sclerae CVS: +s1/s2, normal rate, regular rhythm, no murmur Pulm: Clear to auscultation in all pulliam : Clear yellow urine, moran catheter in place Skin: warm, dry Ext: no c/c/e, cap refill <2sec Neuro: CN 2-12 grossly intact, nonfocal, moving all four extremities spontaneously Recent Labs 12/11/15 0650 12/10/15 0523 12/09/15 0441 WBC 2.6* 3.3* 4.6 HGB 12.8* 12.1* 12.2* HCT 37.0* 35.4* 34.8* PLATELET 194 154 142* Recent Labs 12/11/15 0650 12/10/15 1512 12/10/15 0523 12/09/15 1500 12/09/15 0441 12/08/15 1559 NA 143 144 143 140 140 137 K 3.5 3.8 3.3* 3.4* 3.3* 3.2* CL 105 104 105 102 101 99 CO2 24 20* 23 24 23 21* BUN 13 14 14 19 21* 24* CREATININE 1.59* 1.81* 1.75* 1.96* 2.16* 2.25* GLUCOSE 149 164 137 197 134 233* CALCIUM 8.9 8.5 8.5 8.3* 8.7 8.0* MAGNESIUM 0.60* 0.78 0.59* -- 0.80 0.64* PHOS 2.2* 2.5 2.0* -- 3.1 -- NEW IMAGING: Renal US transplant 12/10/15 Impression Transplant Kidney Summary 1. Unchanged mild pelviectasis of the transplanted kidney. No perinephric collection or complication is identified. 2. Normal intrarenal resistive indices with a patent main renal artery and vein. 3. Normal renal cortical echogenicity. Duplex renal transplant 12/07/15 Interpretation: Left: Patent transplanted renal artery with no evidence of hemodynamically significant stenosis. Patent main renal vein. CXR 12/07/15 IMPRESSION No evidence of active disease. ASSESSMENT: Ethel Akins is a 65 y.o. male s/p DDKT from a hep C positive donor 09/16/15, with recent enterococcus UTI / urosepsis treated with daptomycin, now being admitted for fevers malaise rigors and elevated creatinine. No abscess on renal imaging, and repeat blood culture preliminarily negative. It is thought that perhaps UPJ obstruction after stent removal is a contributing factor to rise in Cr as well as recurrent infection. Discussion with IR today for further imaging evaluation as well as possible re-stent for alleviate the obstruction if indeed any. In the meantime, to continue effort to wean IVF support while assessing for salt wasting disease by switching to 1/2NS MIVF with repeat labs and gradually cutting down on fluid support every 4 hours while encouraging replacement with PO fluid intake. PLAN: Immunosuppression regimen Prograf 1 BID Cellcept 500 BID NEURO: tylenol prn for pain CV: good BP, monitor HD, dilt 120 qd (for prograf) PULM: RA, no issues GI: carb cont diet, encourage PO / fluids, RBO : monitor UOP, continue moran, home tamsulosin FEK: replete lytes as needed (Mg Phos) - f/u lytes this PM, 2cc:1cc replacement as needed throughout course of the day while pursuing fluid equilibrium between intake and output, NS 150/hr, home calcitriol, continue magnesium oxide to 800 TID ID: [id number] bactrim, meropenem, f/u ucx, daily bcx until cleared HEME: no sign of bleed, SQH TID, home plavix, ENDO: home synthroid PT/OT: OOB PROPHYLAXIS: bactrim, RBO, PPI DISPO: 4w JOHN DANG MD 12/11/2015 Pager [phone] I reviewed all of the above findings and assessment of Dr. Dang , examined the patient and formulated the recommendations which accurately reflect mine. * Aubrey Horvath MD - 12/11/2015 8:41 AM EDT INFECTIOUS DISEASE FOLLOW-UP NOTE Active ID Issue(s): Klebsiella oxytoca bacteremia/UTI Renal transplant in 09/2015, CMV D+/R+ Consulting Service/Team Pager: Transplant Consulting Attending: Tal Eagle MD Admission Date: 12/07/2015 Antimicrobial Therapy: Meropenem Intercurrent Events/Subjective Data: - Feels even better from yesterday, hoping to be able to be discharged soon. Physical Exam: Last value Range last 24 hrs Temperature Temp: 36.5 ??C (97.7 ??F) Temp: [36.5 ??C (97.7 ??F)-36.8 ??C (98.2 ??F)] Heart Rate Heart Rate: 62 Heart Rate: [62-70] Blood Pressure BP: 139/61 BP: (122-150)/(61-70) Respiratory Rate Resp: 16 Resp: [16-20] SpO2 SpO2: 99 % SpO2: [95 %-99 %] General: NAD, sitting in chair HEENT: NC/AT, MM moist, neck supple : Moran draining light yellow urine Laboratory: Recent Labs 12/11/15 0650 12/10/15 0523 12/09/15 0441 WBC 2.6* 3.3* 4.6 HGB 12.8* 12.1* 12.2* HCT 37.0* 35.4* 34.8* PLATELET 194 154 142* Recent Labs 12/11/15 0650 12/10/15 1512 12/10/15 0523 NA 143 144 143 K 3.5 3.8 3.3* CL 105 104 105 CO2 24 20* 23 BUN 13 14 14 CREATININE 1.59* 1.81* 1.75* Recent Labs 12/07/15 0755 AST 24 ALT 22 ALKPHOS 76 BILITOT 0.9 BILIDIR 0.3 Recent Labs 12/11/15 0650 12/10/15 1512 12/10/15 0523 CALCIUM 8.9 8.5 8.5 PHOS 2.2* 2.5 2.0* Microbiology: 12/06: Blood--Klebsiella oxytoca, ESBL producing, R to amp/sulbactam, cephalosporins, gent, tobra, TMP/SMX; S to amikacin, cipro, levoflox, meropenem 12/07: Blood--Klebsiella oxytoca, ESBL producing 12/08: Blood--NG x 2 days 12/09: Blood--NG x 1 day 12/06: Urine-- >100k Klebsiella oxytoca, ESBL producing 12/08: Urine--negative Radiology/Studies/Procedures: 12/09: Renal U/S--1. Unchanged mild pelviectasis of the transplanted kidney. No perinephric collection or complication is identified. 2. Normal intrarenal resistive indices with a patent main renal artery and vein. 3. Normal renal cortical echogenicity. Assessment: Ethel Akins is a 65 y.o.male with HCV, CKD s/p renal transplant in 09/2015, recent Enterococcal bacteremia/UTI now presenting with Klebsiella oxytoca bacteremia/UTI. He is improving and has cleared his blood cultures. At this time, he can be transitioned to oral ciprofloxacin as his Klebsiellais sensitive to it and it will allow him to be discharged without IV antibiotics. He should complete a 14 day course, starting from when his blood cultures cleared on 12/08. We will sign off now, but please call with questions. Recommendations: - Stop meropenem - Start ciprofloxacin 500mg PO BID - Financial Management Analyst on importance of not taking dairy products, multivitamins, calcium supplements, or divalent cation-containing antacids within 2 hours of taking ciprofloxacin - Duration 14 days from 12/08 to 12/22 Recommendations discussed with primary treating team. ID consult service will continue to follow. Page [phone] with questions or concerns. X Recommendations are above. ID will sign off. If clinical changes occur or new questions arise, [id number]. Patient discussed with ID attending Dr. Yuliet FATIMA MD Fellow, Infectious Disease 12/11/2015 Pager [phone] Attending Addendum: I have seen and examined the patient, reviewed the data and agree with the note by Dr. Fatima. * Angie Rodriguez RN - 12/10/2015 3:27 PM EDT Office of Care Management (OCM) / Application Technician(CM)/ Initial Assessment Discussed patient with Provider Team and in multidisciplinary discharge-planning rounds. Reviewed record and interviewed patient. Introduced/reviewed CM role and services accepted. REASON for HOSPITALIZATION: Drug resistant Klebsiella bacteremia PMH Renal transplant on 09/16/2015; UTI with bacteremia requiring hospitalization on 11/11, DM, HTN HCV PREVIOUS FUNCTIONAL STATUS: Following discharge was followed for a short time by [facility]-did not work out well and he prefers not to have [facility] on discharge. States he had regained his independence. He was on IV antibiotics for a period following 11/11 discharge and received those at [facility]. CURRENT FUNCTIONAL STATUS: At functional baseline SOCIAL / FAMILY SUPPORTS: Supportive who is able to assist if needed. ADVANCE DIRECTIVES: Does not have-verbalizing frustration that people always ask me this after thesurgery. He would identify his as person to assist with medical decision making if needed andwas not interested in filling out paperwork. HEALTH /PRESCRIPTION COVERAGE: Medicare and [employer]-he does not have prescription coverage CURRENT HOME/COMMUNITY SERVICES/EQUIPMENT: DME: none Home Health Agency:none Other:n/a INVASIVE PHYSICIAN REFERRAL: not needed at this time: PRIMARY CARE PHYSICIAN: ALB[place]IA DENIS DO [address] / [facility] [id number] POTENTIAL DISCHARGE NEEDS: None anticipated at this time-if he does require IV antibiotics would prefer out patient at [facility] ANTICIPATED BARRIERS TO DISCHARGE: none at this time TRANSPORTATION @ D/C: PLAN: CM will continue to monitor progress, follow for continuity of care and assist with dischargeplanning while hospitalized . * Tal Eagle MD - 12/10/2015 12:20 PM EDT Transplant Surgery Resident Inpatient Progress Note ID: Ethel Akins is a 65 y.o. male Hep C positive 65-yo male s/p DDKT from a hep C positive donor on 09/16/15, with recent enterococcus UTI / urosepsis treated with daptomycin, now being admittedfor fevers malaise rigors and elevated creatinine. 24hr events: ?? Tremendous UOP requiring IVF supplement to maintain fluid balance ?? Serial BCx until cx clearance ?? Continues on zosyn ?? Afebrile Subjective: no complaints this AM, denies n/v/cp/sob O: Last value Range last 24hrs Temperature Temp: 36.6 ??C (97.9 ??F) Temp: [36.6 ??C (97.9 ??F)-37.1 ??C (98.8 ??F)] Heart Rate Heart Rate: 66 Heart Rate: [53-70] Blood Pressure BP: 122/64 BP: (122-152)/(64-79) Respiratory Rate Resp: 20 Resp: [18-20] SpO2 SpO2: 98 % SpO2: [95 %-98 %] 12/08 0701 - 12/09 0700 In: 9401.4 [P.O.:3410; I.V.:5850] Out: 9675 [Urine:9675] Physical Exam: General: NAD, resting comfortably, pleasant, conversant HEENT: PERRL, anicteric sclerae CVS: +s1/s2, normal rate, regular rhythm, no murmur Pulm: Clear to auscultation in all pulliam, no wheezes noted on ausculation Abd: soft, nontender, non-distended : Clear yellow urine, moran catheter in place Skin: warm, dry Ext: no c/c/e, cap refill <2sec Neuro: CN 2-12 grossly intact, nonfocal, moving all four extremities spontaneously Recent Labs 12/10/15 0523 12/09/15 0441 12/08/15 0101 12/07/152006 WBC 3.3* 4.6 4.7 3.3* HGB 12.1* 12.2* 12.6* 7.4* HCT 35.4* 34.8* 36.2* 22.2* PLATELET 154 142* 151 102* Recent Labs 12/10/15 0523 12/09/15 1500 12/09/15 0441 12/08/15 1559 12/08/15 0101 NA 143 140 140 137 140 K 3.3* 3.4* 3.3* 3.2* 3.5 CL 105 102 101 99 102 CO2 23 24 23 21* 21* BUN 14 19 21* 24* 26* CREATININE 1.75* 1.96* 2.16* 2.25* 2.27* GLUCOSE 137 197 134 233* 161 CALCIUM 8.5 8.3* 8.7 8.0* 8.6 MAGNESIUM 0.59* -- 0.80 0.64* 0.43* PHOS 2.0* -- 3.1 -- 1.7* NEW IMAGING: Duplex renal transplant 12/07/15 Interpretation: Left: Patent transplanted renal artery with no evidence of hemodynamically significant stenosis. Patent main renal vein. CXR 12/07/15 IMPRESSION No evidence of active disease. ASSESSMENT: Ethel Akins is a 65 y.o. male s/p DDKT from a hep C positive donor 09/16/15, with recent enterococcus UTI / urosepsis treated with daptomycin, now being admitted for fevers malaise rigors and elevated creatinine. Cr continues to improve with the significant UOP, now <2. Will need to start weaning down on fluid replacement to find equilibrium point as patient will not tolerate 9L of UOP after discharge. Diluted urine production may be due to in part to tubular interstitial nephritis, will take time to resolve. Otherwise, per ID recs, will switch to meroponem for klebsiella bacteremia, outpt regimen still to be decided. Will also obtain renal US to eval for abscess. PLAN: Immunosuppression regimen Prograf 1 BID Cellcept 500 BID NEURO: tylenol prn for pain CV: good BP, monitor HD, dilt 120 qd (for prograf) PULM: RA, no issues GI: carb cont diet, encourage PO / fluids, RBO : monitor UOP, continue moran, home tamsulosin FEK: replete lytes as needed (Mg Phos) - f/u lytes this PM, 1/2cc:1cc replacement as needed throughout course of the day while pursuing fluid equilibrium between intake and output, NS 150/hr, home calcitriol, continue magnesium oxide to 800 TID, f/u renal US ID: [id number] bactrim, meropenem, f/u ucx, daily bcx until cleared HEME: no sign of bleed, SQH TID, home plavix, ENDO: home synthroid PT/OT: OOB PROPHYLAXIS: bactrim, RBO, PPI DISPO: 4w JOHN DANG MD 12/10/2015 Pager [phone] I reviewed all of the above findings and assessment of Dr. Dang, examined the patient and formulatedthe recommendations which accurately reflect mine. * Aubrey Horvath MD - 12/10/2015 8:33 AM EDT INFECTIOUS DISEASE FOLLOW-UP NOTE Active ID Issue(s): Klebsiella oxytoca bacteremia/UTI Renal transplant in 09/2015, CMV D+/R+ Consulting Service/Team Pager: Transplant Consulting Attending: Jennifer Amaro,* Admission Date: 12/07/2015 Antimicrobial Therapy: Pip-tazo Intercurrent Events/Subjective Data: - Feels improved from when he came in, rigors resolved Physical Exam: Last value Range last 24 hrs Temperature Temp: 36.9 ??C (98.4 ??F) Temp: [36.6 ??C (97.9 ??F)-37.1 ??C (98.8 ??F)] Heart Rate Heart Rate: 70 Heart Rate: [53-72] Blood Pressure BP: 140/72 BP: (135-152)/(62-79) Respiratory Rate Resp: 20 Resp: [18-20] SpO2 SpO2: 95 % SpO2: [95 %-97 %] General: NAD, sitting in chair HEENT: NC/AT, MM moist, neck supple Cardiovascular: Normal S1 and S2, no m/r/g Respiratory: CTA b/l, no wheezes or crackles Abd: Normoactive BS, soft, NT, ND : Moran draining light yellow urine Extrem: No LE edema Neuro: A&Ox3, no focal deficits Skin: Warm and dry Laboratory: Recent Labs 12/10/15 0523 12/09/15 0441 12/08/15 0101 WBC 3.3* 4.6 4.7 HGB 12.1* 12.2* 12.6* HCT 35.4* 34.8* 36.2* PLATELET 154 142* 151 Recent Labs 12/10/15 0523 12/09/15 1500 12/09/15 0441 NA 143 140 140 K 3.3* 3.4* 3.3* CL 105 102 101 CO2 23 24 23 BUN 14 19 21* CREATININE 1.75* 1.96* 2.16* Recent Labs 12/07/15 0755 12/04/15 0834 AST 24 36 ALT 22 33 ALKPHOS 76 69 BILITOT 0.9 1.2 BILIDIR 0.3 0.2 Recent Labs 12/10/15 0523 12/09/15 1500 12/09/15 0441 12/08/15 0101 CALCIUM 8.5 8.3* 8.7 < > 8.6 PHOS 2.0* -- 3.1 -- 1.7* < > = values in this interval not displayed. Microbiology: 12/06: Blood--Klebsiella oxytoca, ESBL producing, R to amp/sulbactam, cephalosporins, gent, tobra, TMP/SMX; S to amikacin, cipro, levoflox, meropenem 12/07: Blood--Klebsiella oxytoca, ESBL producing 12/08: Blood--NG x 1 day 12/06: Urine-- >100k Klebsiella oxytoca, ESBL producing 12/08: Urine--negative Radiology/Studies/Procedures: 12/09: Renal U/S--1. Unchanged mild pelviectasis of the transplanted kidney. No perinephric collection or complication is identified. 2. Normal intrarenal resistive indices with a patent main renal artery and vein. 3. Normal renal cortical echogenicity. Assessment: Ethel Akins is a 65 y.o.male with HCV, CKD s/p renal transplant in 09/2015, recent Enterococcal bacteremia/UTI now presenting with Klebsiella oxytoca bacteremia/UTI. His Klebsiella is an ESBL-producing organism, and while he has been symptomatically improving on pip-tazo, there is literature supporting the superiority of carbapenems to pip-tazo when treating bacteremia from an ESBL-producingorganism. Given that, we would like to transition him to meropenem for now. However, based on the susceptibilities, he will likely be able to be discharged on oral ciprofloxacin once he clears his bacteremia, which would spare him from another round of IV antibiotics. Recommendations: - Stop pip-tazo - Start meropenem 1g IV q12hr - Follow repeat blood cultures - Will likely be discharged on oral ciprofloxacin X Recommendations discussed with primary treating team. ID consult service will continue to follow.Page [phone] with questions or concerns. Recommendations are above. ID will sign off. If clinical changes occur or new questions arise, [id number]. Patient discussed with ID attending Dr. Yuliet FATIMA MD Fellow, Infectious Disease 12/10/2015 Pager [phone] Attending Addendum: I have seen and examined the patient, reviewed the data and agree with the note by Dr. Fatima. * Joseph Plascencia MD - 12/09/2015 2:28 PM EDT Follow-up Inpatient ID Consult Note Active ID Issues: S/p Renal transplant 09/2015 UTI - Klebsiella oxytoca Bacteremia - Klebsiella oxytoca Antibiotics: Zosyn 24 hour events/Subjective: Blood cultures and urine now growing Klebsiella oxytoca (+ESBL). Clinically, he seems to be improving - last fever yesterday afternoon. Says he had 1 episode of loose stool yesterday evening, but none today. Slight discomfort in lower abdomen. Physical Exam: Last value Range last 48 hrs Temperature Temp: 36.8 ??C (98.2 ??F) Temp: [36.6 ??C (97.9 ??F)-39.3 ??C (102.7 ??F)] Heart Rate Heart Rate: 72 Heart Rate: [62-122] Blood Pressure BP: 138/62 BP: (111-171)/(50-91) Respiratory Rate Resp: 20 Resp: [16-20] SpO2 SpO2: 96 % SpO2: [94 %-99 %] General NAD Neuro A&O x 3. HEENT No scleral/conjunctival injection or icterus. Mucous membranes moist. Heart Irregular rhythm. No stigmata of endocarditis. Lungs CTAB without wheezes, rhonchi, rales. Abdomen Soft, nontender, nondistended. Labs: Lab Results Component Value Date WBC 4.6 12/09/2015 HGB 12.2 (L) 12/09/2015 HCT 34.8 (L) 12/09/2015 MCV 91.1 12/09/2015 PLATELET 142 (L) 12/09/2015 Lab Results Component Value Date NA 140 12/09/2015 K 3.3 (L) 12/09/2015 CL 101 12/09/2015 CO2 23 12/09/2015 BUN 21 (H) 12/09/2015 CREATININE 2.16 (H) 12/09/2015 GLUCOSE 134 12/09/2015 GLUCFASTING 202 (H) 11/12/2015 CALCIUM 8.7 12/09/2015 Micro: Blood cultures: 12/06 - Klebsiella oxytoca 6/4 - Klebsiella oxytoca 6/5 - pending Urine cultures: 12/06 - >100K Klebsiella oxytoca 6/5 - pending Klebsiella oxytoca MICROSCAN METHOD Amikacin Sensitive Ampicillin Resistant Ampicillin + Sulbactam Resistant Aztreonam Resistant Cefazolin Resistant Cefepime Resistant Ceftazidime Resistant Ceftriaxone Resistant Cefuroxime Resistant Ciprofloxacin Sensitive Gentamicin Resistant Levofloxacin Sensitive Meropenem Sensitive Piperacillin/Tazobactam Sensitive Tetracycline Resistant Tigecycline ?? Sensitive Tobramycin Resistant Trimethoprim/Sulfa Resistant Imaging: None new Impressions: 65 y/o M with h/o HCV, CKD secondary to HTN s/p donor renal transplant in 09/2015, recent Enterococcal bacteremia/UTI treated with daptomycin, now presenting with rigors. Blood and urine cultures now growing ESBL Klebsiella oxytoca as above. He is improving on the Zosyn, so reasonable to continue that for now. No indwelling lines. Moran changed out yesterday. He has not had renal imaging recently, so we would recommend obtaining imaging to r/o abscess or other possible source of continued infection. Can hold off on Echo at this point given that we have 24 hours of + blood cultures. Ifrepeat cultures from today remain positive, it may make sense to pursue TTE. Recommendations: 1 - Continue Zosyn 2 - If he becomes unstable, would switch to Meropenem given ESBL+ 3 - Please obtain renal US Discussed with team. Patient discussed with Dr. Plascencia. Janet Mendez MD Infectious Disease Fellow Internal Medicine/Pediatrics ID Attending Drug resistant Klebsiella bacteremia in renal transplant recipient, clinically improving prior to resolution of bacteremia. Since he's improving, I think pip/tazo is reasonable to continue given antibiogram. Would confirm no structural obstacle to cure, scott given prior abn US. If instability, couldgive carbapenem to cover low possibility of inducible resistance but not likely necessary given current trajectory. I have confirmed the above findings independently by talking with the patient, examination the patient, and perusing the relevant laboratory, microbiological, pathological, radiological and other data. * Marcus Saravia MD - 12/09/2015 9:11 AM EDT Transplant Surgery Resident Inpatient Progress Note ID: Ethel Akins is a 65 y.o. male Hep C positive 65-yo male s/p DDKT from a hep C positive donor on 3/13/16, with recent enterococcus UTI / urosepsis treated with daptomycin, now being admittedfor fevers malaise rigors and elevated creatinine. 24hr events: ?? Febrile once yesterday, tachycardia resolved ?? Continues to make good urine ?? Moran catheter replaced yesterday Subjective: no complaints this AM, denies n/v/cp/sob O: Last value Range last 24hrs Temperature Temp: 36.8 ??C (98.2 ??F) Temp: [36.7 ??C (98.1 ??F)-39.3 ??C (102.7 ??F)] Heart Rate Heart Rate: 62 Heart Rate: [62-82] Blood Pressure BP: 140/66 BP: (111-146)/(50-74) Respiratory Rate Resp: 20 Resp: [16-20] SpO2 SpO2: 96 % SpO2: [94 %-99 %] 12/07 07 - 12/08 0700 In: 5789 [P.O.:2540; I.V.:3055] Out: 6300 [Urine:6300] Physical Exam: General: NAD, resting comfortably, pleasant, conversant HEENT: PERRL, anicteric sclerae CVS: +s1/s2, normal rate, regular rhythm, no murmur Pulm: Clear to auscultation in all pulliam, no wheezes noted on ausculation Abd: soft, nontender, non-distended : Clear yellow urine, moran catheter in place Skin: warm, dry Ext: no c/c/e, cap refill <2sec Neuro: CN 2-12 grossly intact, nonfocal, moving all four extremities spontaneously Recent Labs 12/09/1544012/08/1510012/07/15200612/07/15 0755 WBC 4.6 4.7 3.3* 5.2 HGB 12.2* 12.6* 7.4* 14.3 HCT 34.8* 36.2* 22.2* 42.0 PLATELET 142* 151 102* 232 Recent Labs 12/09/1544012/08/15 1559 12/08/1510012/07/15 0755 NA 140 137 140 139 K 3.3* 3.2* 3.5 4.6 CL 101 99 102 99 CO2 23 21* 21* 24 BUN 21* 24* 26* 31* CREATININE 2.16* 2.25* 2.27* 2.98* GLUCOSE 134 233* 161 155 CALCIUM 8.7 8.0* 8.6 9.7 MAGNESIUM 0.80 0.64* 0.43* 0.65* PHOS 3.1 -- 1.7* 3.0 NEW IMAGING: Duplex renal transplant 12/07/15 Interpretation: Left: Patent transplanted renal artery with no evidence of hemodynamically significant stenosis. Patent main renal vein. CXR 12/07/15 IMPRESSION No evidence of active disease. ASSESSMENT: Ethel Akins is a 65 y.o. male s/p DDKT from a hep C positive donor 09/16/15, with recent enterococcus UTI / urosepsis treated with daptomycin, now being admitted for fevers malaise rigors and elevated creatinine. Cr improving overnight, excellent UOP, patient feeling well at this time. Will continue to replete fluid, and replete lyte stoday as needed. Currently on zosyn which should provide adequate coverage of patient's micro-organisms, though will closely follow up on his cx's (likely source urine, again) and adjust as needed. Given his negative fluid balance over the past 24 hours, will bolus 3L today to ensure he remains net even today. PLAN: Immunosuppression regimen Prograf 1 BID Cellcept 500 BID NEURO: tylenol prn for pain CV: good BP, monitor HD, dilt 120 qd (for prograf) PULM: RA, no issues GI: carb cont diet, encourage PO / fluids, RBO : monitor UOP, continue moran, home tamsulosin FEK: replete lytes as needed (Mg Phos) - repeat lytes this PM, Bolus 3L throughout course of the day, to ensure net even fluid status, NS 150/hr , home calcitriol, continue magnesium oxide to 800 TID ID: [id number] bactrim, zosyn, f/u ucx bcx HEME: no sign of bleed, SQH TID, home plavix, ENDO: home synthroid PT/OT: OOB PROPHYLAXIS: bactrim, RBO, PPI DISPO: 4w Marcus Saravia MD 12/09/2015 Pager [phone] Associated attestation - Jennifer Amaro MD - 12/09/2015 12:02 PM EDT I have seen the patient and reviewed the resident's above history and I agree with the details as written. The assessment and plan were formulated in discussion with me and I agree with them as documented. Mr. Akins feels much better today. He has had no fevers or rigors over the last 24 hours. Blood and urine cultures have come back positive with Zosyn sensitive Klebsiella oxytoca. We continue Zosyn coverage. His repeat blood cultures were positive as well. We will send daily blood and urine culture testing until we can document that these return negative. Clinically it appears that we are effectively controlling the infectious process. Urine is clear today. Creatinine level is down to 2.1 today. Will continue to provide IVF hydration. I am sending a Uprot/cr ratio, serum cryoglobulins, and complement testing. Will continue Moran catheterization. I am suspicious of BPH vs bladder dysfunction as he has had urinary obstruction / retention symptoms in recent weeks. Will arrange for outpatient followup with the Urology team. I reviewed and adjusted his immunosuppression today as follows: Prograf 07/06, trough level tomorrow Cellcept 500 mg po bid He is not on corticosteroids Stable, floor status. Continue to closely follow in the setting of bacteremia + immunosuppression. * John Dang MD - 12/08/2015 9:00 AM EDT Transplant Surgery Resident Inpatient Progress Note ID: Ethel Akins is a 65 y.o. male Hep C positive 65-yo male s/p DDKT from a hep C positive donor on 09/16/15, with recent enterococcus UTI / urosepsis treated with daptomycin, now being admittedfor fevers malaise rigors and elevated creatinine. 24hr events: ?? Admitted to floor ?? Started on zosyn ?? IVF resuscitation with bolus + MIVF ?? UCx showing GNR, BCx showing Klebsiella ?? Excellent UOP ?? CXR: no sign of pneumonia Subjective: no complaints this AM, denies n/v/cp/sob O: Last value Range last 24hrs Temperature Temp: 37.8 ??C (100 ??F) Temp: [36.6 ??C (97.9 ??F)-39.3 ??C (102.7 ??F)] Heart Rate Heart Rate: 68 Heart Rate: [64-82] Blood Pressure BP: 146/69 BP: (111-146)/(50-74) Respiratory Rate Resp: 17 Resp: [17-18] SpO2 SpO2: 97 % SpO2: [95 %-99 %] 12/07 07 - 12/08 0700 In: 5183 [P.O.:2360; I.V.:2680] Out: 3800 [Urine:3800] Physical Exam: General: NAD, resting comfortably, pleasant, conversant HEENT: PERRL, anicteric sclerae CVS: +s1/s2, normal rate, regular rhythm, no murmur Pulm: Clear to auscultation in all pulliam, no wheezes noted on ausculation Abd: soft, nontender, non-distended : Clear yellow urine, moran catheter in place Skin: warm, dry Ext: no c/c/e, cap refill <2sec Neuro: CN 2-12 grossly intact, nonfocal, moving all four extremities spontaneously Recent Labs 12/08/15 0101 12/07/15200612/07/15 0755 WBC 4.7 3.3* 5.2 HGB 12.6* 7.4* 14.3 HCT 36.2* 22.2* 42.0 PLATELET 151 102* 232 Recent Labs 12/08/15 1559 12/08/15 0101 12/07/15 0755 NA 137 140 139 K 3.2* 3.5 4.6 CL 99 102 99 CO2 21* 21* 24 BUN 24* 26* 31* CREATININE 2.25* 2.27* 2.98* GLUCOSE 233* 161 155 CALCIUM 8.0* 8.6 9.7 MAGNESIUM 0.64* 0.43* 0.65* PHOS -- 1.7* 3.0 NEW IMAGING: Duplex renal transplant 12/07/15 Interpretation: Left: Patent transplanted renal artery with no evidence of hemodynamically significant stenosis. Patent main renal vein. CXR 12/07/15 IMPRESSION No evidence of active disease. ASSESSMENT: Ethel Gomez Keniavaughn is a 65 y.o. male s/p DDKT from a hep C positive donor 09/16/15, with recent enterococcus UTI / urosepsis treated with daptomycin, now being admitted for fevers malaise rigors and elevated creatinine. Cr improving overnight, excellent UOP, patient feeling well at this time. Will continue to replete fluid, and replete lyte stoday as needed. Currently on zosyn which should provide adequate coverage of patient's micro-organisms, though will closely follow up on his cx's (likely source urine, again) and adjust as needed. PLAN: Immunosuppression regimen Prograf 1 BID Cellcept 500 BID NEURO: tylenol prn for pain CV: good BP, monitor HD, dilt 120 qd (for prograf) PULM: RA, no issues GI: carb cont diet, encourage PO / fluids, RBO : monitor UOP, continue moran, home tamsulosin FEK: replete lytes as needed (Mg Phos), NS 150/hr, home calcitriol, increase home magnesium oxide to 800 TID ID: [id number] bactrim, zosyn, f/u ucx bcx HEME: no sign of bleed, SQH TID, home plavix, ENDO: home LT, PT/OT: OOB PROPHYLAXIS: bactrim, RBO, PPI DISPO: 4w JOHN DANG MD PGY-1 12/09/2015 Pager [phone] Associated attestation - Jennifer Amaro MD - 12/09/2015 11:51 AM EDT I have seen the patient and reviewed the resident's above history and I agree with the details as written. The assessment and plan were formulated in discussion with me and I agree with them as documented. * Brenda Masterson RN - 12/07/2015 7:27 PM EDT 1920: Pt meeting criteria for sepsis bundle (see doc flowsheet). MD Saravia paged and notified. Pt stable at this time. New order for Tylenol placed, all other testing has been previously completed with exception of lactate (Chest xray, blood and urine cultures; fluids). Pt currently receiving 1L bolus of NS (5 of 5) today, IV Zosyn initiated. Report given to radha Thomas RN. Will continue to monitor. * Brenda Masterson RN - 12/07/2015 4:42 PM EDT Pt arrived on from clinic. VSS, no c/o chest pain, n/v or SOB. MIVF started; pt oriented to room. Call light within reach, will continue to monitor. documented in this encounter H&P Notes * Marcus Saravia MD - 12/07/2015 10:53 AM EDT [facility] Department of Transplant Surgery Inpatient Admission Note CC: fevers and rigors, rising creatinine HPI: Mr. 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 He was treated on a 2 week course of IV daptomycin, which he completed at the beginning of this week. Over the course of the past few days, he redeveloped fevers, chills and rigors. He had overall malaise when he returned to clinic today. His creatinine was elevated on his lab work this morning. PM/SH: Past Medical History Diagnosis Date ??? Back [...] EXTREMITY performed by Jennifer Amaro MD at [facility] MAIN OR ??? Pro transplantation of kidney N/A 09/16/2015 @KIDNEY TRANSPLANT, WITHOUT RECIPIENT NEPHRECTOMY performed by Franko Larkin MD at [facility] MAIN OR ??? Pro transplant, prep cadaver renal graft N/A 09/16/2015 @PREPARATION CADAVERIC RENAL ALLOGRAFT performed by Franko Larkin MD at [facility] MAIN OR ??? N/A 09/16/2015 ORGAN ACQUISITION RENAL, CADAVERIC performed by Franko Larkin MD at [facility] MAIN OR ALL: No Known Allergies MED: No current facility-administered medications on file prior to encounter. Current Outpatient Prescriptions on File Prior to Encounter Medication Sig Dispense Refill ??? valGANciclovir (VALCYTE) [...] TOUCH DELICA LANCETS 30 gauge Misc 0 Social history: History Social History ??? Marital status: Spouse [...] Not on file Social History Narrative Family history: ROS: As stated above, otherwise remainder of 10-point system review is negative Physical Exam: Temp: [36.9 ??C (98.5 ??F)] Heart Rate: [102] Resp: -- BP: (154)/(94) SpO2: -- Gen: NAD, tired appearing Neuro: a/ox3 CV: tachycardic reg rhythm, no mrg Pulm: ctab GI: s/nt/nd, incision well healed : moran catheter in place, clear urine, MSK: no cce Recent Results (from the past 24 hour(s)) Cholesterol, total Result Value Ref Range Chol, Total 150 <=199 mg/dL Reticulocyte Count Result Value Ref Range Retic Ct % 1.8 0.5 - 2.4 % Retic Ct Abs 0.080 0.027 - 0.095 x10(6)/mcL Immature Retic% 3.8 2.3 - 15.9 % Reticulated Hgb 34.0 28.5 - 38.9 pg Plat Immature % 1.2 0.0 - 7.4 % Uric acid Result Value Ref Range Uric Acid 11.1 (H) 3.5 - 8.5 mg/dL Phosphorus Result Value Ref Range Phosphorus 3.0 2.5 - 4.5 mg/dL Magnesium Result Value Ref Range Magnesium 0.65 (L) 0.69 - 1.07 mmol/L Comprehensive metabolic panel (non-fasting) Result Value Ref Range Glucose Lvl 155 65 - 199 mg/dL BUN 31 (H) 10 - 20 mg/dL Creatinine 2.98 (H) 0.80 - 1.50 mg/dL Sodium 139 135 - 145 mmol/L Potassium 4.6 3.5 - 5.0 mmol/L Chloride 99 98 - 107 mmol/L CO2 24 22 - 31 mmol/L Anion Gap 16 (H) 5 - 15 mmol/L Calcium 9.7 8.5 - 10.5 mg/dL Total Protein 8.1 (H) 6.1 - 8.0 gm/dL Albumin 4.5 3.2 - 5.2 gm/dL AST 24 0 - 39 unit/L ALT 22 0 - 55 unit/L Alk Phos 76 40 - 120 unit/L Total Bilirubin 0.9 0.2 - 1.3 mg/dL Bili, Direct 0.3 0.0 - 0.3 mg/dL Estimated GFR 21 (L) >=60 Hemogram Result Value Ref Range WBC 5.2 4.0 - 10.0 x10(3)/mcL RBC 4.47 (L) 4.63 - 6.08 x10(6)/mcL Hemoglobin 14.3 13.7 - 17.5 gm/dL Hematocrit 42.0 40.0 - 51.0 % MCV 94.0 (H) 79.0 - 92.0 fL MCH 32.0 25.6 - 32.2 pg MCHC 34.0 32.0 - 36.5 gm/dL Platelets 232 145 - 370 x10(3)/mcL RDWSD 47.4 (H) 35.0 - 46.0 fL RDWCV 13.9 10.9 - 14.4 % MPV 9.7 9.0 - 12.0 fL Differential, Automated Result Value Ref Range Neutrophils % 78.4 % Neutr Abs (ANC) 4.07 1.50 - 6.30 x10(3)/mcL Lymphocytes % 15.0 % Lymphocytes Abs 0.8 (L) 1.0 - 3.6 x10(3)/mcL Monocytes % 2.3 % Monocyte Abs 0.1 (L) 0.2 - 1.0 x10(3)/mcL Eosinophils % 2.9 % Eosinophils Abs 0.2 0.0 - 0.5 x10(3)/mcL Basophils % 0.8 % Basophils Abs 0.0 0.0 - 0.2 x10(3)/mcL Immature Gran % 0.60 % Ayesha Gran Abs 0.03 0.00 - 0.05 x10(3)/mcL Protein/Creatinine Ratio, urine Result Value Ref Range U Creatinine 97 mg/dL U Protein Ran 52 (H) 0 - 12 mg/dL Prot/Cre Ratio 0.5 ratio Urinalysis with reflex Culture Result Value Ref Range Glucose UA Negative Negative mg/dL Protein UA 100 (A) Negative mg/dL Bilirubin UA Negative Negative mg/dL Urobilinogen UA Normal Normal mg/dL pH UA 6.0 5.0 - 8.0 Blood UA Large (A) Negative mg/dL Ketones UA Negative Negative mg/dL Nitrite UA Negative Negative Leukocytes UA Large (A) Negative mcL Appearance UA Hazy (A) Clear Spec Cascade UA 1.011 1.002 - 1.030 Color UA Yellow Yellow RBC UA 38 (H) 0 - 3 /HPF WBC UA 56 (H) 0 - 3 /HPF WBCs Clumping Rare (A) None /HPF Bacteria UA Rare (A) None /HPF Hyaline Cast UA 1 0 - 2 /LPF Culture Reflexed Yes Urinalysis with reflex Culture Result Value Ref Range Glucose UA Negative Negative mg/dL Protein UA Negative Negative mg/dL Bilirubin UA Negative Negative mg/dL Urobilinogen UA Normal Normal mg/dL pH UA 6.0 5.0 - 8.0 Blood UA Small (A) Negative mg/dL Ketones UA Negative Negative mg/dL Nitrite UA Negative Negative Leukocytes UA Trace (A) Negative mcL Appearance UA Clear Clear Spec Cascade UA 1.005 1.002 - 1.030 Color UA Straw Yellow RBC UA 2 0 - 3 /HPF WBC UA 5 (H) 0 - 3 /HPF Bacteria UA Moderate (A) None /HPF Culture Reflexed Yes Assessment and Plan: 65 M s/p DDKT on 09/15 who had bacteremia 2/2 to UTI on 11/11, now completing 2 week course of IV daptomycin, now with recurrent fevers chills at home and rising creatinine. We will recheck UCx, and blood cultures to evaluate for clearance of prior bacteremia vs. Persistent bacteremia. We appreciate ID involvement for antibiotic selection. Prior UCx demonstrated enterococcus resistance to tetracycline, but otherwise sensitive to PCN/ampicillin and vancomycin. Daptomycin was selected due to home administration barriers. In regards to rising creatinine, may be secondary to dehydation, graft function, or decreased flow to graft, will obtain renal duplex upon admission Neuro: APAP CV: will follow BP maintain BP < 170, continue dilt 120 qday, history of CVA, continue home plavix Pulm: IS oob GI/FEN: NS @ 100, CCB, daily BMP, mg, phos, cotninue with mag replacement Heme/ID: appreciate ID guidance on abx selection, will send off UCx, and Blood cultures, will follow Immunosupression: cellcept 500 BID, prograf 07/06 Endo: continue synthroid 75 qday, POCT glucose QID, : moran catheter to remain in place to minimize urinary rentition, continue flomax, Proph: valcyte, bactrim SS, SQH Dispo: floor status, will require >24 hours for monitoring and treatment plan Marcus Saravia MD 12/07/2015 Transplant service pager [phone] Associated attestation - Jennifer Amaro MD - 12/07/2015 10:44 PM EDT I have seen the patient and reviewed the resident's above history and I agree with the details as written. The assessment and plan were formulated in discussion with me and I agree with them as documented. documented in this encounter Miscellaneous Notes * Plan of Care - Perla Mccann RN - 12/13/2015 3:16 AM EDT Problem: General Plan of Care Goal: Plan of Care Review 12/10/15 1629 12/12/15 2200 Plan of Care Review Plan of Care Outcome Status ongoing (interventions implemented as appropriate) -- Progress improving -- Coping/Psychosocial Response Interventions Plan of Care Reviewed with -- patient OUTCOME EVALUATION NOTE: OUTCOME SUMMARY: Yash has rested well between voids. Denies pain. RN encouraged PO intake. Pt voiding Q1-2H, with PVRs charted in doc flow, highest in 160s. Pt up independently. Will continue to monitor. PLAN MOVING FORWARD: Continue to bladder scan after every void, d/c home today likely. INDIVIDUALIZED FALL PREVENTION INTERVENTIONS: Patient-specific fall risk factors per assessment: [current deficits]: Pt in unfamiliar environment, sleep deprivation r/t hospital stay Assistance [level of assistance required for transfers and ambulation]: Independent Supervision [direct monitoring required during toileting and ADLs]: Eyes on Surveillance [continuous indirect monitoring]: Purposeful rounding, call robles in reach and used appropriately Patient-specific fall prevention interventions for sensory deficits provided, if applicable: N/A - glasses on per pt CPG GOAL OUTCOME EVALUATION: Goal: Individualization and Mutuality 12/07/15 193 Mutuality/Individual Preferences What anxieties, fears or concerns do you have about your health or care? staying longer than 1 night What questions do you have about your health or care? none What information would help us give you more personalized care? none Goal: Fall Prevention-Safe Patient Handling 12/12/15 2200 Musculoskeletal Interventions Activity/Level of Assistance up ad chiquita;independently Positioning independent Self-Care Promotion independence encouraged while providing assistance;personal routines for BADL/IADL promoted;personal/BADL objects within reach Stephens Fall Risk History of Falling 0 Secondary Diagnosis 15 Ambulatory Aids 0 Intravenous Therapy/Heparin/Saline Lock 20 Gait/Transferring 0 Mental Status 0 Score 35 Activity and Safety Assistive Device None OTHER Stephens Fall Risk Med Safety Interventions Safety Precautions/Fall Reduction environmental modification;fall reduction program maintained;lighting adjusted for task/safety;low bed;nonskid shoes/slippers when out of bed;supervised activity Goal: Infection Control 12/12/15 220 Coping/Psychosocial Response Interventions Counseling calming techniques promoted;emotional support provided;goal setting facilitated;relaxation techniques promoted;understanding of situation facilitated;verbalization of feelings encouraged Safety Interventions Isolation Precautions standard precautions maintained Infection Prevention bronchial hygiene promoted;environmental surveillance;rest/sleep promoted;hydration promoted Goal: Discharge Needs Assessment 12/10/15 1629 Discharge Needs Assessment Concerns to be Addressed no discharge needs identified Equipment Needed After Discharge none Current Health Anticipated Changes Related to Illness none Self-Care Equipment Currently Used at Home none Living Environment Transportation Available car;family or friend will provide * Consult Note - Tal Eagle MD - 12/12/2015 5:12 PM EDT TRANSPLANT NEPHROLOGY CONSULT PATIENT: Ethel Akins : 1950 REASON FOR CONSULTATION: Medical management of transplant kidney referred by Dr. Amaro Tranplant Hx: 65 y.o. male w/ hx of HCV, DM, HTN who is s/p donor kidney transplant 09/16/15 recent enterococcal bacteremia/UTI/pyelo treated with daptomycin. Previous tx hx: 0% PRA. Patient given Basliximab for induction. EBV +/+, CMV +/+ HPI: 65 y.o. male admitted for rigors,fevers, malais and elevated creatinine. We are asked to see him tohelp them with management of transplant kidney. Pt seen in his room. Does not have any new complaints. He feels better. Able to urinate without any trouble. Post voidal residual has been <75mg. Past Medical History Diagnosis Date ??? Back [...] EXTREMITY performed by Jennifer Amaro MD at [facility] OR ??? Pro transplantation of kidney N/A 09/16/2015 @KIDNEY TRANSPLANT, WITHOUT RECIPIENT NEPHRECTOMY performed by Franko Larkin MD at [facility] OR ??? Pro transplant, prep cadaver renal graft N/A 09/16/2015 @PREPARATION CADAVERIC RENAL ALLOGRAFT performed by Franko Larkin MD at [facility] OR ??? N/A 09/16/2015 ORGAN ACQUISITION RENAL, CADAVERIC performed by Franko Larkin MD at [facility] OR No family history on file. Social History Narrative None on file Outpatient medications: No current facility-administered medications on file prior to encounter. Current Outpatient Prescriptions on File Prior to Encounter Medication Sig Dispense Refill ??? valGANciclovir (VALCYTE) [...] TOUCH DELICA LANCETS 30 gauge Misc 0 MEDICATIONS: ? ? potassium phosphate (monobasic) 500 mg Oral 4 Times Daily WC & HS ??? ciprofloxacin 500 mg Oral BID ??? valGANciclovir 450 mg Oral Daily with breakfast ??? pantoprazole 40 mg Intravenous Daily ??? fludrocortisone 0.1 mg Oral Daily ??? magnesium oxide 800 mg Oral TID ??? calciTRIol 0.5 mcg Oral Daily ??? clopidogrel 75 mg Oral Daily ??? DILTiazem 120 mg Oral Daily ??? levothyroxine 75 mcg Oral QAM ??? mycophenolate 500 mg Oral BID ??? polyethylene glycol 17 g Oral Daily ??? sulfamethoxazole-trimethoprim 1 tablet Oral Daily ??? tacrolimus 1 mg Oral BID ??? tamsulosin 0.4 mg Oral Nightly ??? sodium chloride 0.9 % 5 mL Intravenous BID ??? docusate sodium 100 mg Oral BID ??? heparin (porcine) 5,000 Units Subcutaneous Q8H JUAN R No Known Allergies ROS: Constitutional - No fevers, chills, weight loss Skin - No rash or itchy skin HEENT - No headaches, visual changes Resp - No cough, shortness of breath CV - No chest pain, leg swelling, difficulty breathing lying flat GI - No nausea, vomiting,change in bowel habits/abdominal pain - No change in urine output. No pain urinating or blood in urine. Neuro - No weakness. No numbness/ tingling in extremities. PHYSICAL EXAM: Last value Range last 24 hrs Temperature Temp: 36.9 ??C (98.4 ??F) Temp: [36.3 ??C (97.3 ??F)-36.9 ??C (98.4 ??F)] Heart Rate Heart Rate: 58 Heart Rate: [58-64] Blood Pressure BP: 152/69 BP: (128-152)/(69-89) Respiratory Rate Resp: 16 Resp: [16] SpO2 SpO2: 99 % SpO2: [93 %-99 %] Appearance - Alert, Comfortable. Skin - No exanthem. HEENT - Sclera white. Mucous membranes moist. Chest: Lungs clear to ausculatation w/o wheezes/ rhonchi/ crackles. Heart - S1 and S2 Abd - Soft. + BS. No bruit. Non tender. Ext - . No dependent edema. Neuro - No asterixis. STUDIES: Labs: CBC: Recent Labs 12/12/15 0614 12/11/15 0650 12/10/15 0523 WBC 2.7* 2.6* 3.3* HGB 13.6* 12.8* 12.1* PLATELET 201 194 154 Chemistry: Recent Labs 12/12/15 1608 12/12/15 0614 12/11/15 1537 NA 138 138 138 K 3.4* 3.5 3.7 CL 98 99 101 CO2 24 22 24 BUN 14 14 15 CREATININE 1.68* 1.49 1.68* GLUCOSE 150 157 162 Recent Labs 12/12/15 1608 12/12/15 0614 12/11/15 1537 12/11/15 0650 CALCIUM 9.0 9.0 8.4* 8.9 MAGNESIUM -- 0.63* 0.75 0.60* PHOS -- 2.4* 2.7 2.2* IMPRESSION/ RECOMMENDATIONS: 65 yr old man w/ hx of kidney transplant admitted with fevers malaise rigors and elevated creatinine possibly UPJ outlet obstruction after stent removal. Transplant Status -s/p donor kidney transplant 09/16/15 (DM, HTN) -Creat stable. Pt will be taught self catheter himself in case he needs it but for now he has been able to urinate with no difficulty. He was advised to double void. He was educated about that. If post void residual is >75 he should self cath and remove that urine from bladder to prevent refulx. Immunosuppression -continue Cellcept to 250 mg BID -Continue Prograf 1mg/1mg PO4/Mg Replace as needed Hypertension No change in meds Pt can be discharged home if remains stable by tomorrow Seen and Discussed w/ Dr. Shagufta Villasenor MD Nephrology fellow Pager # [phone] I reviewed all of the above findings and assessment of Dr. Dang, examined the patient and formulatedthe recommendations which accurately reflect mine. * Plan of Care - Selena Nicolas RN - 12/11/2015 4:24 PM EDT Problem: General Plan of Care Goal: Plan of Care Review Outcome: Ongoing (Interventions Implemented as Appropriate) 12/10/15 1629 12/11/15 0830 Plan of Care Review Plan of Care Outcome Status ongoing (interventions implemented as appropriate) -- Progress improving -- Coping/Psychosocial Response Interventions Plan of Care Reviewed with -- patient;spouse OUTCOME EVALUATION NOTE: OUTCOME SUMMARY: Pt had good day with no complaints. Transitioned to PO antibiotics. Moran remains in place. PLAN MOVING FORWARD: INDIVIDUALIZED FALL PREVENTION INTERVENTIONS: Patient-specific fall risk factors per assessment: [current deficits]: Moran catheter, IVF Assistance [level of assistance required for transfers and ambulation]: independent Supervision [direct monitoring required during toileting and ADLs]: Eyes on Surveillance [continuous indirect monitoring]: Hourly rounding Patient-specific fall prevention interventions for sensory deficits provided, if applicable: Yes CPG GOAL OUTCOME EVALUATION: Goal: Individualization and Mutuality Outcome: Ongoing (Interventions Implemented as Appropriate) 12/07/15 1930 Mutuality/Individual Preferences What anxieties, fears or concerns do you have about your health or care? staying longer than 1 night What questions do you have about your health or care? none What information would help us give you more personalized care? none Goal: Fall Prevention-Safe Patient Handling Outcome: Ongoing (Interventions Implemented as Appropriate) 12/10/15 1915 12/11/15 0830 12/11/15 1430 Musculoskeletal Interventions Activity/Level of Assistance -- -- up ad chiquita;up in posey;chair;ambulated;up in room;independently Positioning -- -- -- Self-Care Promotion assistance provided to decrease frustration;independence encouraged while providing assistance;personal routines for BADL/IADL promoted;personal/BADL objects within reach -- -- Stephens Fall Risk History of Falling -- 0 -- Secondary Diagnosis -- 15 -- Ambulatory Aids -- 0 -- Intravenous Therapy/Heparin/Saline Lock -- 20 -- Gait/Transferring -- 0 -- Mental Status -- 0 -- Score -- 35 -- Activity and Safety Assistive Device -- -- Other (iv pole) OTHER Stephens Fall Risk -- Med -- Safety Interventions Safety Precautions/Fall Reduction -- environmental modification;lighting adjusted for task/safety;low bed;room near unit station;nonskid shoes/slippers when out of bed -- 12/11/15 1534 Musculoskeletal Interventions Activity/Level of Assistance -- Positioning HOB up 30 degrees;independent Self-Care Promotion -- Stephens Fall Risk History of Falling -- Secondary Diagnosis -- Ambulatory Aids -- Intravenous Therapy/Heparin/Saline Lock -- Gait/Transferring -- Mental Status -- Score -- Activity and Safety Assistive Device -- OTHER Stephens Fall Risk -- Safety Interventions Safety Precautions/Fall Reduction -- Goal: Infection Control Outcome: Ongoing (Interventions Implemented as Appropriate) 12/10/15 1915 12/11/15 0830 Coping/Psychosocial Response Interventions Counseling -- emotional support provided Safety Interventions Isolation Precautions standard precautions maintained -- Infection Prevention rest/sleep promoted -- Goal: Discharge Needs Assessment Outcome: Ongoing (Interventions Implemented as Appropriate) 12/10/15 1629 Discharge Needs Assessment Concerns to be Addressed no discharge needs identified Readmission Within the Last 30 Days current reason for admission unrelated to previous admission Equipment Needed After Discharge none Current Health Anticipated Changes Related to Illness none Self-Care Equipment Currently Used at Home none Living Environment Transportation Available car;family or friend will provide * Plan of Care - Margarette Scott RN - 12/10/2015 4:42 PM EDT Problem: General Plan of Care Goal: Plan of Care Review Outcome: Ongoing (Interventions Implemented as Appropriate) 12/10/15 1629 Plan of Care Review Plan of Care Outcome Status ongoing (interventions implemented as appropriate) Progress improving Coping/Psychosocial Response Interventions Plan of Care Reviewed with patient OUTCOME EVALUATION NOTE: OUTCOME SUMMARY: Mr. Akins had a good shift. He denies pain. Tolerating moran with no concerns. Adequate urine output. Up ambulating in hallway with IV pole. Renal ultrasound completed. Encouraged to increase PO intake. Will continue to monitor. PLAN MOVING FORWARD: Increase PO intake INDIVIDUALIZED FALL PREVENTION INTERVENTIONS: Patient-specific fall risk factors per assessment: [current deficits]: IV lines, moran Assistance [level of assistance required for transfers and ambulation]: Standby Supervision [direct monitoring required during toileting and ADLs]: Eyes on Surveillance [continuous indirect monitoring]: Purposeful rounding, call robles in reach Patient-specific fall prevention interventions for sensory deficits provided, if applicable: No CPG GOAL OUTCOME EVALUATION: Goal: Fall Prevention-Safe Patient Handling Outcome: Ongoing (Interventions Implemented as Appropriate) 12/09/15 1950 12/10/15 0800 12/10/15 1300 Musculoskeletal Interventions Activity/Level of Assistance -- ambulated;up in room;independently -- Positioning -- up in chair;independent -- Self-Care Promotion assistance provided to decrease frustration;independence encouraged while providing assistance -- -- Stephens Fall Risk History of Falling -- 0 -- Secondary Diagnosis -- 15 -- Ambulatory Aids -- 0 -- Intravenous Therapy/Heparin/Saline Lock -- 20 -- Gait/Transferring -- 0 -- Mental Status -- 0 -- Score -- 35 -- Activity and Safety Assistive Device -- -- None OTHER Stephens Fall Risk -- Med -- Safety Interventions Safety Precautions/Fall Reduction -- environmental modification;fall reduction program maintained;lighting adjusted for task/safety;nonskid shoes/slippers when out of bed;room near unit station -- Goal: Infection Control Outcome: Ongoing (Interventions Implemented as Appropriate) 12/10/15 0800 Coping/Psychosocial Response Interventions Counseling emotional support provided;reassurance provided;understanding of situation facilitated;verbalization of feelings encouraged Safety Interventions Isolation Precautions standard precautions maintained Infection Prevention rest/sleep promoted;promote handwashing;hydration promoted;nutrition promoted;environmental surveillance;bronchial hygiene promoted Goal: Discharge Needs Assessment Outcome: Ongoing (Interventions Implemented as Appropriate) 12/10/15 1629 Discharge Needs Assessment Concerns to be Addressed no discharge needs identified Readmission Within the Last 30 Days current reason for admission unrelated to previous admission Equipment Needed After Discharge none Current Health Anticipated Changes Related to Illness none Self-Care Equipment Currently Used at Home none Living Environment Transportation Available car;family or friend will provide * Plan of Care - Angela Rendon RN - 12/09/2015 6:23 PM EDT Problem: General Plan of Care Goal: Plan of Care Review Outcome: Ongoing (Interventions Implemented as Appropriate) 12/09/15 0410 12/09/15 0800 Plan of Care Review Plan of Care Outcome Status ongoing (interventions implemented as appropriate) -- Progress improving -- Coping/Psychosocial Response Interventions Plan of Care Reviewed with -- patient OUTCOME EVALUATION NOTE: OUTCOME SUMMARY: Ethel had a good day. Ambulated in hallway. He has denied nausea. Has reported some abdominal painwith coughing. Has received 2 liter boluses so far. Urine culture, urine sodium and blood cultures sent today. Received PO potassium this am. BMP rechecked at 1500. Patient has not had any fevers or chills today. PLAN MOVING FORWARD: One more liter bolus and then resume NS at 150ml/hour. Daily blood and urine cultures. Tac level ordered for tomorrow am. Continue antibiotics. Monitor intake and output. Continue to monitor for painand nausea and treat accordingly. Encourage ambulation. INDIVIDUALIZED FALL PREVENTION INTERVENTIONS: Patient-specific fall risk factors per assessment: [current deficits]: Unfamiliar environment, multiple lines Assistance [level of assistance required for transfers and ambulation]: Independent Supervision [direct monitoring required during toileting and ADLs]: Eyes on Surveillance [continuous indirect monitoring]: Purposeful rounding, call light in reach Patient-specific fall prevention interventions for sensory deficits provided, if applicable: Yes, glasses, light adjusted for task/safety CPG GOAL OUTCOME EVALUATION: Goal: Fall Prevention-Safe Patient Handling 12/09/15 0800 12/09/15 1004 Musculoskeletal Interventions Activity/Level of Assistance -- up in posey;ambulated Positioning independent -- Self-Care Promotion independence encouraged while providing assistance -- Kat Fall Risk History of Falling 0 -- Secondary Diagnosis 15 -- Ambulatory Aids 0 -- Intravenous Therapy/Heparin/Saline Lock 20 -- Gait/Transferring 0 -- Mental Status 0 -- Score 35 -- Activity and Safety Assistive Device None -- OTHER Stephens Fall Risk Med -- Safety Interventions Safety Precautions/Fall Reduction environmental modification;fall reduction program maintained;lighting adjusted for task/safety;low bed;nonskid shoes/slippers when out of bed;room near unit station;commode/urinal/bedpan at bedside -- Goal: Infection Control 12/09/15 0800 Coping/Psychosocial Response Interventions Counseling emotional support provided Safety Interventions Isolation Precautions standard precautions maintained Infection Prevention environmental surveillance;rest/sleep promoted;promote handwashing;blood glucose management * Plan of Care - Rolando Grewal RN - 12/09/2015 4:18 AM EDT Problem: General Plan of Care Goal: Plan of Care Review Outcome: Ongoing (Interventions Implemented as Appropriate) 12/09/15 0410 Plan of Care Review Plan of Care Outcome Status ongoing (interventions implemented as appropriate) Progress improving Coping/Psychosocial Response Interventions Plan of Care Reviewed with patient OUTCOME EVALUATION NOTE: OUTCOME SUMMARY: Plan of care for the shift discussed with patient on initial shift assessment. Medications, PO intake, checking his blood sugar the beginning of the shift, use of call robles when needing assistance and patient safety discussed. After 2300 he sleeps in between care only awoken by staff entering the room and IV pump alarming. PLAN MOVING FORWARD: Encourage PO intake, proper diet options for DM, monitor intake and output, amlabs. Ambulate outside of room. INDIVIDUALIZED FALL PREVENTION INTERVENTIONS: Patient-specific fall risk factors per assessment: [current deficits]: Needs assistance getting in and out of bed or chair. Assistance [level of assistance required for transfers and ambulation]: Walker, IV pole, 1 person assist, standby, non-skid slippers on at all times Supervision [direct monitoring required during toileting and ADLs]: Eyes on Surveillance [continuous indirect monitoring]: Purposeful rounding, call robles with in reach on bedside table. Patient-specific fall prevention interventions for sensory deficits provided, if applicable: Glasses, light adjusted for task and safety CPG GOAL OUTCOME EVALUATION: Goal: Fall Prevention-Safe Patient Handling Outcome: Ongoing (Interventions Implemented as Appropriate) 12/08/15 1950 12/08/15 2200 12/09/15 0410 Musculoskeletal Interventions Activity/Level of Assistance -- up in posey;ambulated;with stand by assist -- Positioning -- independent -- Self-Care Promotion -- -- assistance provided to decrease frustration;personal/BADL objects within reach;toileting assistance provided Stephens Fall Risk History of Falling 0 -- -- Secondary Diagnosis 15 -- -- Ambulatory Aids 0 -- -- Intravenous Therapy/Heparin/Saline Lock 20 -- -- Gait/Transferring 0 -- -- Mental Status 0 -- -- Score 35 -- -- Activity and Safety Assistive Device -- None -- OTHER Stephens Fall Risk Med -- -- Safety Interventions Safety Precautions/Fall Reduction environmental modification;fall reduction program maintained;lighting adjusted for task/safety;muscle strengthening facilitated;nonskid shoes/slippers when out of bed;room near unit station -- -- Goal: Infection Control Outcome: Ongoing (Interventions Implemented as Appropriate) 12/08/15 0800 12/08/15 1950 Coping/Psychosocial Response Interventions Counseling emotional support provided -- Safety Interventions Isolation Precautions -- standard precautions maintained Infection Prevention -- blood glucose management;bronchial hygiene promoted;environmental surveillance;hydration promoted;nutrition promoted;promote handwashing;rest/sleep promoted * Plan of Care - Keyana Moy RN - 12/08/2015 6:14 AM EDT Problem: General Plan of Care Goal: Plan of Care Review Outcome: Ongoing (Interventions Implemented as Appropriate) 12/07/15 2116 Coping/Psychosocial Response Interventions Plan of Care Reviewed with patient OUTCOME EVALUATION NOTE: OUTCOME SUMMARY: 2000- Sepsis bundle activated,and HR 122, called MD Escalante she ordered for CBC,Lactate and EKG. Patient is already getting the bolus. 2100-Got the positive result of Blood Culture anaerobic and aerobic. Gram stain gram negative rods and [place] Oxytoca. MD Escalante notified who came and examined the patient. V/S wnl please see doc flowsheet. MD Escalante spoke to MD Christianson and the patient is already on Zosyn antibiotic. 0100- Repeat CBC and Blood Culture done per MD Escalante. CBC results wnl. Given Tylenol for his fever. . PLAN MOVING FORWARD: Patient will continue with antibiotics and Tylenol for fever control. INDIVIDUALIZED FALL PREVENTION INTERVENTIONS: Patient-specific fall risk factors per assessment: [current deficits]: needs assistance getting in and out of bed or chair Assistance [level of assistance required for transfers and ambulation]: Non-skid slippers, 1 personassist Supervision [direct monitoring required during toileting and ADLs]: Hands on . Surveillance [continuous indirect monitoring]: Purposeful rounding; call light in reach Patient-specific fall prevention interventions for sensory deficits provided, if applicable Lighting adjusted for safety. CPG GOAL OUTCOME EVALUATION: Goal: Fall Prevention-Safe Patient Handling Outcome: Ongoing (Interventions Implemented as Appropriate) 12/07/152115 Activity and Safety Assistive Device None Safety Interventions Safety Precautions/Fall Reduction environmental modification;fall reduction program maintained;lighting adjusted for task/safety;low bed;muscle strengthening facilitated;nonskid shoes/slippers when out of bed Musculoskeletal Interventions Activity/Level of Assistance up ad chiquita;ambulated;with stand by assist Positioning HOB up 30-45 degrees Goal: Infection Control Outcome: Ongoing (Interventions Implemented as Appropriate) 12/07/152115 Safety Interventions Isolation Precautions standard precautions maintained Infection Prevention blood glucose management;environmental surveillance;bronchial hygiene promoted;hydration promoted;nutrition promoted;promote handwashing;rest/sleep promoted Coping/Psychosocial Response Interventions Counseling emotional support provided;goal setting facilitated;calming techniques promoted Goal: Discharge Needs Assessment Outcome: Ongoing (Interventions Implemented as Appropriate) 12/07/15 193 Living Environment Transportation Available car;family or friend will provide * Consult Note - Aubrey Horvath MD - 12/07/2015 5:27 PM EDT INFECTIOUS DISEASE INITIAL CONSULT NOTE Reason for Consult: Rigors Renal transplant in 09/2015, CMV D+/R+ Consulting Service: Transplant Consulting Attending: Jennifer Amaro,* Admission Date: 12/07/2015 History of Present Illness: 65 y.o. male with history of HCV, CKD secondary to HTN s/p donor renal transplant in 09/2015, recent Enterococcal bacteremia/UTI treated with daptomycin, now presenting with rigors. We have been consulted to assist with workup. Mr. Akins underwent a renal transplant on 09/16/2015. His donor had Group C Strep bacteremia prior to organ procurement, so he was treated with a week of ceftriaxone post-transplant. He did well and had his stent removed on 10/25. He was admitted from 11/11 to 11/15 with Enterococcal bacteremia and UTI, initially treated with ampicillin in the hospital and then discharged on daptomycin for a 2 weekcourse. He was then readmitted from 11/26 to 11/27 with an elevated creatinine to 2.8 (baseline of 1.3). His daptomycin was completed that admission and he was rehydrated. He was having urinary retention and increased post-void residuals, so a Moran was placed on 12/04. He was doing well with no symptoms until he woke up this morning and had new rigors. He presented to clinic for follow up today and had rigors and emesis in the clinic. No documented fever. He denies sick contacts, SOB, cough, abd pain, diarrhea. No dysuria prior to Moran insertion. He was given fluids, blood and urine cultures were obtained, and admission arranged. Review of Systems: Constitutional: +Rigors as above. Denies fever, night sweats HEENT: Denies headache, sore throat, nasal congestion Cardiovascular: Denies chest pain, pressure or palp Respiratory: Denies SOB, cough GI: +Emesis this morning. Denies dysphagia, abdominal pain, D/C : Denies dysuria Musculoskeletal: Denies myalgias or arthralgias Skin: No skin complaints, rash Neurological: No focal weakness, numbness or tingling Allergies: No Known Allergies Pertinent Medications: Outpt: TMP/SMX 1 DS daily Valganciclovir 450mg daily Tacrolimus 1mg BID Mycophenolate 500mg BID Past Medical and Surgical History: Past Medical [...] EXTREMITY performed by Jennifer Amaro MD at [facility] MAIN OR ??? Pro transplantation of kidney N/A 09/16/2015 @KIDNEY TRANSPLANT, WITHOUT RECIPIENT NEPHRECTOMY performed by Franko Larkin MD at [facility] MAIN OR ??? Pro transplant, prep cadaver renal graft N/A 09/16/2015 @PREPARATION CADAVERIC RENAL ALLOGRAFT performed by Franko Larkin MD at [facility] MAIN OR ??? N/A 09/16/2015 ORGAN ACQUISITION RENAL, CADAVERIC performed by Franko Larkin MD at [facility] MAIN OR Social History and Habits: - Lives with his and son - Keeps bees as an hobby Physical Exam: Last value Range last 24 hrs Temperature Temp: 36.8 ??C (98.2 ??F) Temp: [36.8 ??C (98.2 ??F)-36.9 ??C (98.5 ??F)] Heart Rate Heart Rate: 87 Heart Rate: [87-102] Blood Pressure BP: 153/72 BP: (153-154)/(72-94) Respiratory Rate Resp: 16 Resp: [16] SpO2 SpO2: 96 % SpO2: [96 %] No data found. General: Fatigued appearing, but NAD, sitting in chair HEENT: NC/AT, Oropharynx clear with no lesions, MM moist, neck supple Cardiovascular: Normal S1 and S2, no m/r/g Respiratory: CTA b/l, no wheezes or crackles Abd: Normoactive BS, soft, ND, mild discomfort in suprapubic region but not over kidney transplant : Moran in place, draining light yellow urine Extrem: No LE edema Neuro: A&Ox3, no focal deficits Skin: Warm and dry without rashes Laboratory: Recent Labs 12/07/1575412/04/15 0834 WBC 5.2 5.3 HGB 14.3 13.9 HCT 42.0 40.2 PLATELET 232 255 Recent Labs 12/07/1575412/04/15 0834 NA 139 141 K 4.6 5.0 CL 99 99 CO2 24 24 BUN 31* 37* CREATININE 2.98* 3.10* Recent Labs 12/07/1575412/04/15 0834 AST 24 36 ALT 22 33 ALKPHOS 76 69 BILITOT 0.9 1.2 BILIDIR 0.3 0.2 Recent Labs 12/07/15 0755 12/04/15 0834 CALCIUM 9.7 9.6 PHOS 3.0 3.9 Component Value Date/Time SPGRAVITYUA 1.005 12/07/2015 1020 PHUADIP 6.0 12/07/2015 1020 PROTEINUADIP Negative 12/07/2015 1020 GLUCOSEU Negative 12/07/2015 1020 KETONESUA Negative 12/07/2015 1020 UROBILIUADIP Normal 12/07/2015 1020 BLOODUADIP Small (A) 12/07/2015 1020 NITRATEUA Negative 12/07/2015 1020 LEUKOESTERUA Trace (A) 12/07/2015 1020 WBCUA 5 (H) 12/07/2015 1020 BILIRUBINUA Negative 12/07/2015 1020 Microbiology: Blood--pending Urine--pending Radiology/Studies/Procedures: 11/26: Transplant U/S--1. Interval slight increase in mild pelvicaliectasis of the transplant kidneywith persistent mild dilatation of the visualized proximal ureter. No perinephric collections identified. 2. Normal renal cortical echogenicity. 3. Normal intrarenal resistive indices. 4. Interrogated portions of the main renal artery and vein are patent. 12/06: Renal Duplex-- Left: Patent transplanted renal artery with no evidence of hemodynamically significant stenosis. Patent main renal vein. Assessment: Ethel Akins is a 65 y.o. male with history of HCV, CKD secondary to HTN s/p donor renal transplant in 09/2015, recent Enterococcal bacteremia/UTI treated with daptomycin, now presentingwith rigors. His exam and history is fairly unremarkable. The U/A obtained off a clean catheter ([id number]) does not have a particularly large number of WBCs. However, there has been some pelvicaliectasis noted on ultrasound, which could indicated an obstruction, which would put him at higher risk ofUTIs. At this time, will wait on the results of the blood and urine cultures and empirically place him on pip-tazo for now. He should also get a CXR to ensure there is no pneumonia developing as his immunosuppressants may make him more asymptomatic. Recommendations: - Blood cultures x 2 sets - Urine culture - CXR - Start pip-tazo X Recommendations discussed with the primary treating team. ID consult service will continue to follow patient. Page us at [phone] with any further questions or concerns. Recommendations are above and were discussed with the primary treating team. ID will sign off. Please page if further consultation required. This patient was seen and discussed with ID attending Dr. Yuliet FATIMA MD Fellow, Infectious Disease 12/07/2015 Pager [phone] Attending Addendum: I have seen and examined the patient, reviewed the data and agree with the note by Dr. Fatima. documented in this encounter Plan of Treatment Upcoming Encounters Date Type Department Care Team (Late st Contact Info) Description 04/15/2024 10:00 AM EDT Hospital Encounter [place] [id number] Arrived documented as of this encounter Procedures Procedure Name Priority Date/Time Associated Diagnosis Comments TACROLIMUS LEVEL Timed 12/13/2015 7:45 AM EDT HEMOGRAM Routine 12/13/2015 5:38 AM EDT DIFFERENTIAL, AUTOMATED Routine 12/13/2015 5:38 AM EDT CBC (WITH DIFF) Routine 12/13/2015 5:38 AM EDT PHOSPHORUS Routine 12/13/2015 5:38 AM EDT MAGNESIUM Routine 12/13/2015 5:38 AM EDT BASIC METABOLIC PANEL Routine 12/13/2015 5:38 AM EDT BASIC METABOLIC PANEL Timed 12/12/2015 4:08 PM EDT HEMOGRAM Routine 12/12/2015 6:14 AM EDT DIFFERENTIAL, AUTOMATED Routine 12/12/2015 6:14 AM EDT CBC (WITH DIFF) Routine 12/12/2015 6:14 AM EDT PHOSPHORUS Routine 12/12/2015 6:14 AM EDT MAGNESIUM Routine 12/12/2015 6:14 AM EDT BASIC METABOLIC PANEL Routine 12/12/2015 6:14 AM EDT PHOSPHORUS Timed 12/11/2015 3:37 PM EDT MAGNESIUM Timed 12/11/2015 3:37 PM EDT BASIC METABOLIC PANEL Timed 12/11/2015 3:37 PM EDT URINE CULTURE Routine 12/11/2015 7:34 AM EDT BLOOD CULTURE Routine 12/11/2015 7:12 AM EDT HEMOGRAM Routine 12/11/2015 6:50 AM EDT DIFFERENTIAL, AUTOMATED Routine 12/11/2015 6:50 AM EDT BLOOD CULTURE Routine 12/11/2015 6:50 AM EDT CBC (WITH DIFF) Routine 12/11/2015 6:50 AM EDT PHOSPHORUS Routine 12/11/2015 6:50 AM EDT MAGNESIUM Routine 12/11/2015 6:50 AM EDT BASIC METABOLIC PANEL Routine 12/11/2015 6:50 AM EDT PHOSPHORUS Timed 12/10/2015 3:12 PM EDT MAGNESIUM Timed 12/10/2015 3:12 PM EDT BASIC METABOLIC PANEL Timed 12/10/2015 3:12 PM EDT US RENAL TRANSPLANT LEFT Routine 12/10/2015 2:36 PM EDT TACROLIMUS LEVEL Timed 12/10/2015 8:25 AM EDT BLOOD CULTURE STAT 12/10/2015 8:25 AM EDT POCT GLUCOSE Routine 12/10/2015 6:59 AM EDT C1Q COMPLEMENT Routine 12/10/2015 5:23 AM EDT HEMOGRAM Routine 12/10/2015 5:23 AM EDT DIFFERENTIAL, AUTOMATED Routine 12/10/2015 5:23 AM EDT BLOOD CULTURE STAT 12/10/2015 5:23 AM EDT CBC (WITH DIFF) Routine 12/10/2015 5:23 AM EDT COMPLEMENT, TOTAL Routine 12/10/2015 5:2 3 AM EDT C3 COMPLEMENT Routine 12/10/2015 5:23 AM EDT C4 COMPLEMENT Routine 12/10/2015 5:23 AM EDT PHOSPHORUS Routine 12/10/2015 5:23 AM EDT MAGNESIUM Routine 12/10/2015 5:23 AM EDT BASIC METABOLIC PANEL Routine 12/10/2015 5:23 AM EDT BASIC METABOLIC PANEL Routine 12/09/2015 3:00 PM EDT SODIUM, URINE, RANDOM Routine 12/09/2015 12:24 PM EDT BLOOD CULTURE STAT 12/09/2015 10:32 AM EDT BLOOD CULTURE STAT 12/09/2015 10:20 AM EDT URINE CULTURE Routine 12/09/2015 9:58 AM EDT HEMOGRAM Routine 12/09/2015 4:41 AM EDT DIFFERENTIAL, AUTOMATED Routine 12/09/2015 4:41 AM EDT CBC (WITH DIFF) Routine 12/09/2015 4:41 AM EDT PHOSPHORUS Routine 12/09/2015 4:41 AM EDT MAGNESIUM Routine 12/09/2015 4:41 AM EDT BASIC METABOLIC PANEL Routine 12/09/2015 4:41 AM EDT POCT GLUCOSE Routine 12/08/2015 8:28 PM EDT MAGNESIUM Timed 12/08/2015 3:59 PM EDT BASIC METABOLIC PANEL Timed 12/08/2015 3:59 PM EDT POCT GLUCOSE Routine 12/08/2015 11:40 AM EDT POCT GLUCOSE Routine 12/08/2015 7:30 AM EDT BLOOD CULTURE STAT 12/08/2015 1:17 AM EDT SCAN, PERIPHERAL BLOOD Routine 12/08/2015 1:01 AM EDT HEMOGRAM Routine 12/08/2015 1:01 AM EDT DIFFERENTIAL, AUTOMATED Routine 12/08/2015 1:01 AM EDT CRYOGLOBULIN Routine 12/08/2015 1:01 AM EDT HEPATITIS C RNA, QUANTITATIVE, PCR Routine 12/08/2015 1:01 AM EDT BLOOD CULTURE STAT 12/08/2015 1:01 AM EDT CBC (WITH DIFF) Routine 12/08/2015 1:01 AM EDT PHOSPHORUS Routine 12/08/2015 1:01 AM EDT MAGNESIUM Routine 12/08/2015 1:01 AM EDT BASIC METABOLIC PANEL Routine 12/08/2015 1:01 AM EDT POCT GLUCOSE Routine 12/07/2015 9:07 PM EDT EKG 12-LEAD STAT 12/07/2015 8:48 PM EDT Tachycardia RED TUBE HOLD STAT 12/07/2015 8:07 PM EDT DIFFERENTIAL, MANUAL STAT 12/07/2015 8:07 PM EDT HEMOGRAM STAT 12/07/2015 8:07 PM EDT LACTATE, WHOLE BLOOD STAT 12/07/2015 8:07 PM EDT CBC (WITH DIFF) STAT 12/07/2015 8:07 PM EDT XR CHEST PA AND LATERAL Routine 12/07/2015 5:47 PM EDT POCT GLUCOSE Routine 12/07/2015 5:14 PM EDT DUPLEX RENAL TRANSPLANT, UNILAT Routine 12/07/2015 10:46 AM EDT documented in this encounter Results * Tacrolimus level (12/13/2015 7:45 AM EDT) Tacrolimus 5.7 ng/mL [facility] Comment:Trough therapeutic: 5-15 ng/mL Blood specimen (specimen) 12/13/2015 7:45 AM EDT 12/13/2015 10:53 AM EDT Narrative Resulting Agency Comment Spec In Lab Tal Eagle MD CHEMISTRY ORDERAB LES [facility] [place] [address] * (ABNORMAL) Differential, Automated (12/13/2015 5:38 AM EDT) Neutrophil % 54.5 % [facility] Neutrophil Absolute 1.50 1.50 - 6.30 x10(3)/[facility] [place] [facility] Lymph % 28.4 % [facility] Lymphocytes Abs 0.8(L) 1.0 - 3.6 x10(3)/[facility] [place] [facility] Monocyte % 12.0 % [facility] Monocyte Abs 0.3 0.2 - 1.0 x10(3)/[facility] [place] [facility] Eos % 2.2 % [facility] Eosinophils Abs 0.1 0.0 - 0.5 x10(3)/[facility] [place] [facility] Basophil % 1.8 % [facility] Baso Absolute 0.0 0.0 - 0.2 x10(3)/[facility] [place] [facility] Immature Gran % 1.10 % [facility] Comment: Immature granulocytes(IG's)percentage and absolute count will include metamyelocytes, myelocytes, and promyelocytes. Blood smears from CBCs yielding IG's will be scanned manually for concordance. If this scan disagrees with the automated IG or if promyelocytes are noted, a manual differential will be performed. Immature Gran Absolute 0.03 0.00 - 0.05 x10(3)/[facility] [place] [facility] Blood specimen (specimen) 12/13/2015 5:38 AM EDT 12/13/2015 6:05 AM EDT Narrative Resulting Agency Comment Spec In Lab Tal Eagle MD HEMATOLOGY ORDERA BLES [facility] [place] [address] * (ABNORMAL) Hemogram (12/13/2015 5:38 AM EDT) [facility] White Blood Cell 2.8(L) 4.0 - 10.0 x10(3)/[facility] [place] [facility] Red Blood Cell 4.07(L) 4.63 - 6.08 x10(6)/mc L [facility] Hemoglobin 12.7(L) 13.7 - 17.5 gm/dL [facility] Hematocrit 36.8(L) 40.0 - 51.0 % [facility] Mean Cell Volume 90.4 79.0 - 92.0 fL [facility] Mean Cell Hemoglobin 31.2 25.6 - 32.2 pg [facility] Mean Cell Hemoglobin Concentration 34.5 32.0 - 36.5 gm/dL [facility] Platelet 210 145 - 370 x10(3)/mc L [facility] RDW Standard Deviation 43.6 35.0 - 46.0 fL [facility] RDW coefficient of variation 13.3 10.9 - 14.4 % [facility] Mean Platelet Volume 9.7 9.0 - 12.0 fL [facility] Blood specimen (specimen) 12/13/2015 5:38 AM EDT 12/13/2015 6:05 AM EDT Narrative Resulting Agency Comment Spec In Lab Tal Eagle MD HEMATOLOGY ORDERA BLES Performing Organization Address City/[facility]/ZIP Co de Phone Number [facility] [place] [address] * Phosphorus (12/13/2015 5:38 AM EDT) Phosphorus 2.7 2.5 - 4.5 mg/dL [facility] Blood specimen (specimen) 12/13/2015 5:38 AM EDT 12/13/2015 6:05 AM EDT Narrative Resulting Agency Comment Spec In Lab Tal Eagle MD CHEMISTRY ORDERAB LES Performing Organization Address City/[facility]/ZIP Co de Phone Number [facility] [place] [address] * Magnesium (12/13/2015 5:38 AM EDT) Magnesium 0.71 0.69 - 1.07 mmol/L [facility] Blood specimen (specimen) 12/13/2015 5:38 AM EDT 12/13/2015 6:05 AM EDT Narrative Resulting Agency Comment Spec In Lab Tal Eagle MD CHEMISTRY ORDERAB LES [facility] [place] [address] * (ABNORMAL) Basic Metabolic Panel (non-fasting) (12/13/2015 5:38 AM EDT) Glucose 144 65 - 199 mg/dL [facility] Comment:Diabetes: >=200 mg/d L plus symptoms Blood Urea Nitrogen 16 10 - 20 mg/dL [facility] Creatinine 1.56(H) 0.80 - 1.50 mg/dL [facility] Comment: Please note that the pediatric reference intervals supplied above were not validated at [facility]. Results from pediatric patients should be interpreted in conjunction to the patient's age, height and muscle mass. Sodium 138 135 - 145 mmol/L [facility] Potassium 3.7 3.5 - 5.0 mmol/L [facility] Comment: Please note: ??Patients with WBC >100,000 may have falsely elevated Potassium levels. ??For accurate Potassium quantification in these patients send serum separator tube (gold top) for subsequent determinations. ??Contact the Clinical Chemistry Laboratory if there are any questions. Chloride 101 98 - 107 mmol/L [facility] Carbon Dioxide 24 22 - 31 mmol/L [facility] Anion Gap 13 5 - 15 mmol/L [facility] Calcium 8.8 8.5 - 10.5 mg/dL [facility] Est Glomerular Filtration Rate 45(L) >=60 [facility] [...] the following links into your internet browser. [email or web address] Blood specimen (specimen) 12/13/2015 5:38 AM EDT 12/13/2015 6:05 AM EDT Narrative Resulting Agency Comment Spec In Lab Tal Eagle MD CHEMISTRY ORDERAB LES [facility] [place] [address] * (ABNORMAL) Basic Metabolic Panel (non-fasting) (12/12/2015 4:08 PM EDT) Glucose 150 65 - 199 mg/dL [facility] Comment:Diabetes: >=200 mg/d L plus symptoms Blood Urea Nitrogen 14 10 - 20 mg/dL [facility] Creatinine 1.68(H) 0.80 - 1.50 mg/dL [facility] Comment: Please note that the pediatric reference intervals supplied above were not validated at [facility]. Results from pediatric patients should be interpreted in conjunction to the patient's age, height and muscle mass. Sodium 138 135 - 145 mmol/L [facility] Potassium 3.4(L) 3.5 - 5.0 mmol/L [facility] Comment: Please note: ??Patients with WBC >100,000 may have falsely elevated Potassium levels. ??For accurate Potassium quantification in these patients send serum separator tube (gold top) for subsequent determinations. ??Contact the Clinical Chemistry Laboratory if there are any questions. Chloride 98 98 - 107 mmol/L [facility] Carbon Dioxide 24 22 - 31 mmol/L [facility] Anion Gap 16(H) 5 - 15 mmol/L [facility] Calcium 9.0 8.5 - 10.5 mg/dL [facility] Est Glomerular Filtration Rate 41(L) >=60 [facility] [...] the following links into your internet browser. [email or web address] Blood specimen (specimen) 12/12/2015 4:08 PM EDT 12/12/2015 4:13 PM EDT Narrative Resulting Agency Comment Spec In Lab Tal Eagle MD CHEMISTRY ORDERAB LES [facility] [place] [address] * (ABNORMAL) Differential, Automated (12/12/2015 6:14 AM EDT) Neutrophil % 52.9 % [facility] Neutrophil Absolute 1.42(L) 1.50 - 6.30 x10(3)/mc L [facility] Lymph % 27.6 % [facility] Lymphocytes Abs 0.7(L) 1.0 - 3.6 x10(3)/mc L [facility] Monocyte % 12.7 % [facility] Monocyte Abs 0.3 0.2 - 1.0 x10(3)/mc L [facility] Eos % 3.4 % [facility] Eosinophils Abs 0.1 0.0 - 0.5 x10(3)/mc L [facility] Basophil % 1.9 % [facility] Baso Absolute 0.0 0.0 - 0.2 x10(3)/mc L [facility] Immature Gran % 1.50 % [facility] Comment: Immature granulocytes(IG's)percentage and absolute count will include metamyelocytes, myelocytes, and promyelocytes. Blood smears from CBCs yielding IG's will be scanned manually for concordance. If this scan disagrees with the automated IG or if promyelocytes are noted, a manual differential will be performed. Immature Gran Absolute 0.04 0.00 - 0.05 x10(3)/mc L [facility] Blood specimen (specimen) 12/12/2015 6:14 AM EDT 12/12/2015 6:33 AM EDT Narrative Resulting Agency Comment Spec In Lab Jennifer Amaro MD HEMATOLOGY ORD ERABLES [facility] [place] [address] * (ABNORMAL) Hemogram (12/12/2015 6:14 AM EDT) White Blood Cell 2.7(L) 4.0 - 10.0 x10(3)/[facility] [place] [facility] Red Blood Cell 4.26(L) 4.63 - 6.08 x10(6)/ L [facility] Hemoglobin 13.6(L) 13.7 - 17.5 gm/dL [facility] Hematocrit 37.8(L) 40.0 - 51.0 % [facility] Mean Cell Volume 88.7 79.0 - 92.0 fL [facility] Mean Cell Hemoglobin 31.9 25.6 - 32.2 pg [facility] Mean Cell Hemoglobin Concentration 36.0 32.0 - 36.5 gm/dL [facility] Platelet 201 145 - 370 x10(3)/ L [facility] RDW Standard Deviation 44.1 35.0 - 46.0 fL [facility] LABORATORY RDW coefficient of variation 13.7 10.9 - 14.4 % [facility] Mean Platelet Volume 9.3 9.0 - 12.0 fL [facility] Blood specimen (specimen) 12/12/2015 6:14 AM EDT 12/12/2015 6:33 AM EDT Narrative Resulting Agency Comment Spec In Lab Jennifer Amaro MD HEMATOLOGY ORD ERABLES Performing Organization Address [facility] Co de Phone Number [facility] [place] [address] * (ABNORMAL) Phosphorus (12/12/2015 6:14 AM EDT) Phosphorus 2.4(L) 2.5 - 4.5 mg/dL [facility] Blood specimen (specimen) 12/12/2015 6:14 AM EDT 12/12/2015 6:33 AM EDT Narrative Resulting Agency Comment Spec In Lab Jennifer Amaro MD CHEMISTRY ROCHELLE JENNINGS Performing Organization Address [facility] de Phone Number [facility] [place] [address] * (ABNORMAL) Magnesium (12/12/2015 6:14 AM EDT) Magnesium 0.63(L) 0.69 - 1.07 mmol/L [facility] Blood specimen (specimen) 12/12/2015 6:14 AM EDT 12/12/2015 6:33 AM EDT Narrative Resulting Agency Comment Spec In Lab Jennifer Amaro MD CHEMISTRY ROCHELLE JENNINGS Performing Organization Address [facility] de Phone Number [facility] [place] [address] * (ABNORMAL) Basic Metabolic Panel (non-fasting) (12/12/2015 6:14 AM EDT) Glucose 157 65 - 199 mg/dL [facility] Comment:Diabetes: >=200 mg/d L plus symptoms Blood Urea Nitrogen 14 10 - 20 mg/dL [facility] Creatinine 1.49 0.80 - 1.50 mg/dL [facility] Comment: Please note that the pediatric reference intervals supplied above were not validated at [facility]. Results from pediatric patients should be interpreted in conjunction to the patient's age, height and muscle mass. Sodium 138 135 - 145 mmol/L [facility] Potassium 3.5 3.5 - 5.0 mmol/L [facility] Comment: Please note: ??Patients with WBC >100,000 may have falsely elevated Potassium levels. ??For accurate Potassium quantification in these patients send serum separator tube (gold top) for subsequent determinations. ??Contact the Clinical Chemistry Laboratory if there are any questions. Chloride 99 98 - 107 mmol/L [facility] Carbon Dioxide 22 22 - 31 mmol/L [facility] Anion Gap 17(H) 5 - 15 mmol/L [facility] Calcium 9.0 8.5 - 10.5 mg/dL [facility] Est Glomerular Filtration Rate 47(L) >=60 [facility] [...] the following links into your internet browser. [email or web address] Blood specimen (specimen) 12/12/2015 6:14 AM EDT 12/12/2015 6:33 AM EDT Narrative Resulting Agency Comment Spec In Lab Jennifer Amaro MD CHEMISTRY ROCHELLE JENNINGS [facility] [place] [address] * Phosphorus (12/11/2015 3:37 PM EDT) Phosphorus 2.7 2.5 - 4.5 mg/dL [facility] Blood specimen (specimen) 12/11/2015 3:37 PM EDT 12/11/2015 3:49 PM EDT Narrative Resulting Agency Comment Spec In Lab Tal Eagle MD CHEMISTRY ORDERAB LES Performing Organization Address City/[facility]/ZIP Co de Phone Number [facility] [place] [address] * Magnesium (12/11/2015 3:37 PM EDT) Magnesium 0.75 0.69 - 1.07 mmol/L [facility] Blood specimen (specimen) 12/11/2015 3:37 PM EDT 12/11/2015 3:49 PM EDT Narrative Resulting Agency Comment Spec In Lab Tal Eagle MD CHEMISTRY ORDERAB LES Performing Organization Address [facility] Co de Phone Number [facility] [place] [address] * (ABNORMAL) Basic Metabolic Panel (non-fasting) (12/11/2015 3:37 PM EDT) Glucose 162 65 - 199 mg/dL [facility] Comment:Diabetes: >=200 mg/d L plus symptoms Blood Urea Nitrogen 15 10 - 20 mg/dL [facility] Creatinine 1.68(H) 0.80 - 1.50 mg/dL [facility] Comment: Please note that the pediatric reference intervals supplied above were not validated at [facility]. Results from pediatric patients should be interpreted in conjunction to the patient's age, height and muscle mass. Sodium 138 135 - 145 mmol/L [facility] Potassium 3.7 3.5 - 5.0 mmol/L [facility] Comment: Please note: ??Patients with WBC >100,000 may have falsely elevated Potassium levels. ??For accurate Potassium quantification in these patients send serum separator tube (gold top) for subsequent determinations. ??Contact the Clinical Chemistry Laboratory if there are any questions. Chloride 101 98 - 107 mmol/L [facility] Carbon Dioxide 24 22 - 31 mmol/L [facility] Anion Gap 13 5 - 15 mmol/L [facility] Calcium 8.4(L) 8.5 - 10.5 mg/dL [facility] Est Glomerular Filtration Rate 41(L) >=60 [facility] [...] the following links into your internet browser. [email or web address] Blood specimen (specimen) 12/11/2015 3:37 PM EDT 12/11/2015 3:49 PM EDT Narrative Resulting Agency Comment Spec In Lab Tal Eagle MD CHEMISTRY ORDERAB LES Performing Organization Address City/[facility] Co de Phone Number [facility] [place] [address] * Urine culture Indwelling Catheter Urine (12/11/2015 7:34 AM EDT) Urine Culture No growth (Less than 1,000 cfu/ml). [facility] Urine specimen obtained via indwelling urinary catheter (specimen) 12/11/2015 7:34 AM EDT 12/11/2015 9:16 AM EDT Narrative Resulting Agency Comment Spec In Lab Jennifer Amaro MD MICROBIOLOGY - GENERAL ORDERABLES Performing Organization Address City/[facility]/ZIP Co de Phone Number [facility] [place] [address] * Blood culture (12/11/2015 7:12 AM EDT) Blood Culture No growth at 5 days. [facility] Blood specimen (specimen) STRUCTURE OF RIGHT HAND / Unknown 12/11/2015 7:12 AM EDT 12/11/2015 7:36 AM EDT Narrative Resulting Agency Comment Spec In Lab Tal Eagle MD MICROBIOLOGY - BL OOD ORDERABLES [facility] [place] [address] * (ABNORMAL) Differential, Automated (12/11/2015 6:50 AM EDT) Neutrophil % 56.6 % [facility] Neutrophil Absolute 1.45(L) 1.50 - 6.30 x10(3)/mc L [facility] Lymph % 27.0 % [facility] Lymphocytes Abs 0.7(L) 1.0 - 3.6 x10(3)/mc L [facility] Monocyte % 7.8 % [facility] Monocyte Abs 0.2 0.2 - 1.0 x10(3)/mc L [facility] Eos % 5.5 % [facility] Eosinophils Abs 0.1 0.0 - 0.5 x10(3)/mc L [facility] Basophil % 2.3 % [facility] Baso Absolute 0.1 0.0 - 0.2 x10(3)/mc L [facility] Immature Gran % 0.80 % [facility] Comment: Immature granulocytes(IG's)percentage and absolute count will include metamyelocytes, myelocytes, and promyelocytes. Blood smears from CBCs yielding IG's will be scanned manually for concordance. If this scan disagrees with the automated IG or if promyelocytes are noted, a manual differential will be performed. Immature Gran Absolute 0.02 0.00 - 0.05 x10(3)/mc L [facility] Blood specimen (specimen) 12/11/2015 6:50 AM EDT 12/11/2015 7:10 AM EDT Narrative Resulting Agency Comment Spec In Lab Jennifer Amaro MD HEMATOLOGY ORD ERABLES [facility] [place] [address] * (ABNORMAL) Hemogram (12/11/2015 6:50 AM EDT) White Blood Cell 2.6(L) 4.0 - 10.0 x10(3)/mc L [facility] Red Blood Cell 4.03(L) 4.63 - 6.08 x10(6)/mc L [facility] Hemoglobin 12.8(L) 13.7 - 17.5 gm/dL [facility] Hematocrit 37.0(L) 40.0 - 51.0 % [facility] Mean Cell Volume 91.8 79.0 - 92.0 fL [facility] Mean Cell Hemoglobin 31.8 25.6 - 32.2 pg [facility] Mean Cell Hemoglobin Concentration 34.6 32.0 - 36.5 gm/dL [facility] Platelet 194 145 - 370 x10(3)/mc L [facility] RDW Standard Deviation 45.2 35.0 - 46.0 fL [facility] RDW coefficient of variation 13.4 10.9 - 14.4 % [facility] Mean Platelet Volume 9.7 9.0 - 12.0 fL [facility] Blood specimen (specimen) 12/11/2015 6:50 AM EDT 12/11/2015 7:10 AM EDT Narrative Resulting Agency Comment Spec In Lab Jennifer Amaro MD HEMATOLOGY ORD ERABLES [facility] [place] [address] * Blood culture (12/11/2015 6:50 AM EDT) Blood Culture No growth at 5 days. [facility] Blood specimen (specimen) STRUCTURE OF RIGHT HAND / Unknown 12/11/2015 6:50 AM EDT 12/11/2015 7:36 AM EDT Narrative Resulting Agency Comment Spec In Lab Tal Eagle MD MICROBIOLOGY - BL OOD ORDERABLES Performing Organization Address [facility]/ZIP Co de Phone Number [facility] [place] [address] * (ABNORMAL) Phosphorus (12/11/2015 6:50 AM EDT) Phosphorus 2.2(L) 2.5 - 4.5 mg/dL [facility] Blood specimen (specimen) 12/11/2015 6:50 AM EDT 12/11/2015 7:10 AM EDT Narrative Resulting Agency Comment Spec In Lab Jennifer Amaro MD CHEMISTRY ORDBhargav JENNINGS Performing Organization Address [facility] Co de Phone Number [facility] [place] [address] * (ABNORMAL) Magnesium (12/11/2015 6:50 AM EDT) Magnesium 0.60(L) 0.69 - 1.07 mmol/L [facility] Blood specimen (specimen) 12/11/2015 6:50 AM EDT 12/11/2015 7:10 AM EDT Narrative Resulting Agency Comment Spec In Lab Jennifer Amaro MD CHEMISTRY ORDBhargav JENNINGS Performing Organization Address [facility] Co de Phone Number [facility] [place] [address] * (ABNORMAL) Basic Metabolic Panel (non-fasting) (12/11/2015 6:50 AM EDT) Glucose 149 65 - 199 mg/dL [facility] Comment:Diabetes: >=200 mg/d L plus symptoms Blood Urea Nitrogen 13 10 - 20 mg/dL [facility] Creatinine 1.59(H) 0.80 - 1.50 mg/dL [facility] Comment: Please note that the pediatric reference intervals supplied above were not validated at [facility]. Results from pediatric patients should be interpreted in conjunction to the patient's age, height and muscle mass. Sodium 143 135 - 145 mmol/L [facility] Potassium 3.5 3.5 - 5.0 mmol/L [facility] Comment: Please note: ??Patients with WBC >100,000 may have falsely elevated Potassium levels. ??For accurate Potassium quantification in these patients send serum separator tube (gold top) for subsequent determinations. ??Contact the Clinical Chemistry Laboratory if there are any questions. Chloride 105 98 - 107 mmol/L [facility] Carbon Dioxide 24 22 - 31 mmol/L [facility] Anion Gap 14 5 - 15 mmol/L [facility] Calcium 8.9 8.5 - 10.5 mg/dL [facility] Est Glomerular Filtration Rate 44(L) >=60 [facility] [...] the following links into your internet browser. [email or web address] Blood specimen (specimen) 12/11/2015 6:50 AM EDT 12/11/2015 7:10 AM EDT Narrative Resulting Agency Comment Spec In Lab Jennifer Amaro MD CHEMISTRY ROCHELLE JENNINGS [facility] [place] [address] * Phosphorus (12/10/2015 3:12 PM EDT) Phosphorus 2.5 2.5 - 4.5 mg/dL [facility] Blood specimen (specimen) Venous Draw / Unknown 12/10/2015 3:12 PM EDT 12/10/2015 3:29 PM EDT Narrative Resulting Agency Comment Spec In Lab Jennifer Amaro MD CHEMISTRY ORDE DICK Performing Organization Address [facility] Co de Phone Number [facility] [place] [address] * Magnesium (12/10/2015 3:12 PM EDT) Magnesium 0.78 0.69 - 1.07 mmol/L [facility] Blood specimen (specimen) Venous Draw / Unknown 12/10/2015 3:12 PM EDT 12/10/2015 3:29 PM EDT Narrative Resulting Agency Comment Spec In Lab Jennifer mAaro MD CHEMISTRY ORDE DICK Performing Organization Address [facility] Co de Phone Number [facility] [place] [address] * (ABNORMAL) Basic Metabolic Panel (non-fasting) (12/10/2015 3:12 PM EDT) Pathologist [facility] Glucose 164 65 - 199 mg/dL [facility] Comment:Diabetes: >=200 mg/d L plus symptoms Blood Urea Nitrogen 14 10 - 20 mg/dL [facility] Creatinine 1.81(H) 0.80 - 1.50 mg/dL [facility] Comment: Please note that the pediatric reference intervals supplied above were not validated at [facility]. Results from pediatric patients should be interpreted in conjunction to the patient's age, height and muscle mass. Sodium 144 135 - 145 mmol/L [facility] Potassium 3.8 3.5 - 5.0 mmol/L [facility] Comment: Please note: ??Patients with WBC >100,000 may have falsely elevated Potassium levels. ??For accurate Potassium quantification in these patients send serum separator tube (gold top) for subsequent determinations. ??Contact the Clinical Chemistry Laboratory if there are any questions. Chloride 104 98 - 107 mmol/L [facility] Carbon Dioxide 20(L) 22 - 31 mmol/L [facility] Anion Gap 20(H) 5 - 15 mmol/L [facility] Calcium 8.5 8.5 - 10.5 mg/dL [facility] Est Glomerular Filtration Rate 38(L) >=60 [facility] [...] the following links into your internet browser. [email or web address] Blood specimen (specimen) 12/10/2015 3:12 PM EDT 12/10/2015 3:29 PM EDT Narrative Resulting Agency Comment Spec In Lab Jennifer Amaro MD CHEMISTRY ROCHELLE JENNINGS [facility] Organization Address City/State/ZIP Co de Phone Number [facility] [place] [address] * Renal Transplant Left (12/10/2015 2:36 PM EDT) Anatomical Region Laterality Modality Abdomen Left Ultrasound 12/10/2015 2:33 PM EDT Impressions 12/10/2015 3:25 PM EDT Impression Transplant Kidney Summary 1. Unchanged mild pelviectasis of the transplanted kidney. ??No perinephric collection or complication is identified. 2. Normal intrarenal resistive indices with a patent main renal artery and vein. 3. Normal renal cortical echogenicity. I ??viewed the images and agree with the above interpretation. ? Preeti Holloawy MD Electronically Signed Final Report ?? 12/10/2015 03:25 pm Narrative 12/10/2015 3:25 PM EDT Transplant ? (Signed Final 12/10/2015 03:25 pm) Patient Info ID #: ? [id number] ? : 46 (65 yrs) Name: ? ETHEL AKINS ? Visit Date:12/10/2015 02:33 pm Performed By Performed By: ? Osmar Dowd RDMS Attending: ?Jewel GERBER, Preeti Sanford Associate: ?Alfredito GERBER, Rocky Vela Referred By: ?JENNIFER AMARO MD Service(s) Provided ??URTPL - Ultrasound Renal Transplant - Left - [id number] Indications ??eval perinephric abscess Renal Allograft Size (cm) ? L: 12.2 Cortical Thickness: ?Normal Corticomedullary Differention: Normal Echogenicity: ?Normal Perinephric Fluid/Collections: No collection identified Hydronephrosis: ?Mild pelvicaliectasis, unchanged Comment: ?Unchanged left proximal ureter measuring 7 mm in ? diameter. Renal Transplant Duplex ? PSV ? EDV ? RI ? (cm/s) ??(cm/s) Arcuate Artery ?0.79 Upper Pole: Arcuate Artery ?0.74 Mid Allograft: Arcuate Artery ?0.74 Lower Pole: Main Renal Artery ? 83.6 ?16.6 ? 0.8 Mid: Comment: ?Visualized portions of main renal artery and vein are ? patent. Urinary Bladder Comment: ?Not distended. ??Moran Catheter present. Procedure Note Preeti Holloway MD - 12/10/2015 Transplant (Signed Final 12/10/2015 03:25pm) Patient Info ID #: [id number] : [birth year] (65 yrs) Name: ETHEL Gomez KENIAANARAMÓN Visit Date:12/10/2015 02:33 pm Performed By Performed By: Osmar Dowd RDMS Attending: Preeti Holloway MD Associate: Rocky Glaser MD Referred By: JENNIFER AMARO MD Service(s) Provided URTPL - Ultrasound Renal Transplant - Left - [id number] Indications eval perinephric abscess Renal Allograft Size (cm) L: 12.2 Cortical Thickness: Normal Corticomedullary Differention: Normal Echogenicity: Normal Perinephric Fluid/Collections: No collection identified Hydronephrosis: Mild pelvicaliectasis, unchanged Comment: Unchanged left proximal ureter measuring 7 mm in diameter. Renal Transplant Duplex PSV EDV RI (cm/s) (cm/s) Arcuate Artery 0.79 Upper Pole: Arcuate Artery 0.74 Mid Allograft: Arcuate Artery 0.74 Lower Pole: Main Renal Artery 83.6 16.6 0.8 Mid: Comment: Visualized portions of main renal artery and vein are patent. Urinary Bladder Comment: Not distended. Moran Catheter present. IMPRESSION Impression Transplant Kidney Summary 1. Unchanged mild pelviectasis of the transplanted kidney. No perinephric collection or complication is identified. 2. Normal intrarenal resistive indices with a patent main renal artery and vein. 3. Normal renal cortical echogenicity. I viewed the images and agree with the above interpretation. Preeti Holloway MD Electronically Signed Final Report 12/10/2015 03:25 pm Jennifer Amaro MD IMG US GEN ORD ERABLES * Blood culture (12/10/2015 8:25 AM EDT) [facility] Blood Culture No growth at 5 days. [facility] Blood specimen (specimen) STRUCTURE OF RIGHT FOREARM / Unknown 12/10/2015 8:25 AM EDT 12/10/2015 9:03 AM EDT Narrative Resulting Agency Comment Spec In Lab Jennifer Amaro MD MICROBIOLOGY - BLOOD ORDERABLES [facility] [place] [address] * Tacrolimus level (12/10/2015 8:25 AM EDT) [facility] Tacrolimus 5.0 ng/mL [facility] Comment:Trough therapeutic: 5-15 ng/mL Blood specimen (specimen) 12/10/2015 8:25 AM EDT 12/10/2015 11:08 AM EDT Narrative Resulting Agency Comment Spec In Lab Jennifer Amaro MD CHEMISTRY ORDE RABLES Performing Organization Address [facility]/ZIP Co de Phone Number [facility] [place] [address] * POCT Glucose (12/10/2015 6:59 AM EDT) [facility] Glucose, POC 171 65 - 199 mg/dL [facility] Comment: Supplemental ranges: <140 mg/dL before meals <180 mg/dL all other times of the day Blood specimen (specimen) 12/10/2015 6:59 AM EDT 12/10/2015 6:59 AM EDT Jennifer Amaro MD POINT OF CARE TEST ORDERABLES Performing Organization Address City/[facility]/ZIP Co de Phone Number [facility] [place] [address] * (ABNORMAL) Differential, Automated (12/10/2015 5:23 AM EDT) [facility] Neutrophil % 62.5 % [facility] Neutrophil Absolute 2.05 1.50 - 6.30 x10(3)/[facility] Lymph % 25.0 % [facility] Lymphocytes Abs 0.8(L) 1.0 - 3.6 x10(3)/[facility] Monocyte % 6.4 % [facility] Monocyte Abs 0.2 0.2 - 1.0 x10(3)/[facility] Eos % 4.0 % [facility] Eosinophils Abs 0.1 0.0 - 0.5 x10(3)/[facility] Basophil % 1.5 % [facility] Baso Absolute 0.0 0.0 - 0.2 x10(3)/[facility] Immature Gran % 0.60 % [facility] Comment: Immature granulocytes(IG's)percentage and absolute count will include metamyelocytes, myelocytes, and promyelocytes. Blood smears from CBCs yielding IG's will be scanned manually for concordance. If this scan disagrees with the automated IG or if promyelocytes are noted, a manual differential will be performed. Immature Gran Absolute 0.02 0.00 - 0.05 x10(3)/[facility] Blood specimen (specimen) 12/10/2015 5:23 AM EDT 12/10/2015 5:42 AM EDT Narrative Resulting Agency Comment Spec In Lab Jennifer Amaro MD HEMATOLOGY ORD ERABLES [facility] [place] [address] * (ABNORMAL) Hemogram (12/10/2015 5:23 AM EDT) [facility] White Blood Cell 3.3(L) 4.0 - 10.0 x10(3)/[facility] Red Blood Cell 3.84(L) 4.63 - 6.08 x10(6)/mc L [facility] Hemoglobin 12.1(L) 13.7 - 17.5 gm/dL [facility] Hematocrit 35.4(L) 40.0 - 51.0 % [facility] Mean Cell Volume 92.2(H) 79.0 - 92.0 fL [facility] Mean Cell Hemoglobin 31.5 25.6 - 32.2 pg [facility] Mean Cell Hemoglobin Concentration 34.2 32.0 - 36.5 gm/dL [facility] Platelet 154 145 - 370 x10(3)/mc L [facility] RDW Standard Deviation 46.1(H) 35.0 - 46.0 fL [facility] RDW coefficient of variation 13.7 10.9 - 14.4 % [facility] Mean Platelet Volume 9.9 9.0 - 12.0 fL [facility] Blood specimen (specimen) 12/10/2015 5:23 AM EDT 12/10/2015 5:42 AM EDT Narrative Resulting Agency Comment Spec In Lab Jennifer Amaro MD HEMATOLOGY ORD MILAGROS Performing Organization Address City/[facility]/ZIP Co de Phone Number [facility] [place] [address] * Complement, Total (12/10/2015 5:23 AM EDT) Complement, Total 42 30 - 75 unit/mL [facility] Comment: Test Performed by: [facility] - [address] [address] Hog Cutter: Edinson Garcia II, M.D., Ph.D. Blood specimen (specimen) 12/10/2015 5:23 AM EDT 12/10/2015 9:48 AM EDT Narrative Resulting Agency Comment Spec In Lab Jennifer Amaro MD CHEMISTRY ORDBhargav JENNINGS [facility] [place] [address] * C4 Complement (12/10/2015 5:23 AM EDT) Complement C4 37 10 - 40 mg/dL [facility] Blood specimen (specimen) 12/10/2015 5:23 AM EDT 12/10/2015 5:42 AM EDT Narrative Resulting Agency Comment Spec In Lab Jennifer Amaro MD CHEMISTRY ORDBhargav JENNINGS Performing Organization Address [facility] Co de Phone Number [facility] [place] [address] * C3 Complement (12/10/2015 5:23 AM EDT) Complement C3 129 90 - 180 mg/dL [facility] Blood specimen (specimen) 12/10/2015 5:23 AM EDT 12/10/2015 5:42 AM EDT Narrative Resulting Agency Comment Spec In Lab Jennifer Amaro MD CHEMISTRY ORDBhargav JENNINGS Performing Organization Address [facility] Co de Phone Number [facility] [place] [address] * (ABNORMAL) C1q Complement (12/10/2015 5:23 AM EDT) Complement C1Q (NOVEMBER) 23(H) 12 - 22 mg/dL [facility] Comment: ADDITIONAL INFORMATION Laboratory developed test Test Performed by: [facility] - [address] [address] Hog Cutter: Edinson Garcia II, M.D., Ph.D. Blood specimen (specimen) 12/10/2015 5:23 AM EDT 12/10/2015 8:53 AM EDT Narrative Resulting Agency Comment Spec In Lab Jennifer Amaro MD LAB SEND OUT O RDERABLES Performing Organization Address [facility] Co de Phone Number [facility] [place] [address] * Blood culture (12/10/2015 5:23 AM EDT) Blood Culture No growth at 5 days. [facility] Blood specimen (specimen) 12/10/2015 5:23 AM EDT 12/10/2015 6:07 AM EDT Comment:R HAND Narrative Resulting Agency Comment Spec In Lab Jennifer Amaro MD MICROBIOLOGY - BLOOD ORDERABLES Performing Organization Address [facility] de Phone Number [facility] [place] [address] * (ABNORMAL) Phosphorus (12/10/2015 5:23 AM EDT) Phosphorus 2.0(L) 2.5 - 4.5 mg/dL [facility] Blood specimen (specimen) 12/10/2015 5:23 AM EDT 12/10/2015 5:42 AM EDT Narrative Resulting Agency Comment Spec In Lab Jennifer Amaro MD CHEMISTRY ORDE DICK Performing Organization Address [facility] Co de Phone Number [facility] [place] [address] * (ABNORMAL) Magnesium (12/10/2015 5:23 AM EDT) Magnesium 0.59(L) 0.69 - 1.07 mmol/L [facility] Blood specimen (specimen) 12/10/2015 5:23 AM EDT 12/10/2015 5:42 AM EDT Narrative Resulting Agency Comment Spec In Lab Jennifer Amaro MD CHEMISTRY ORDBhargav JENNINGS Performing Organization Address [facility] Co de Phone Number [facility] [place] [address] * (ABNORMAL) Basic Metabolic Panel (non-fasting) (12/10/2015 5:23 AM EDT) Glucose 137 65 - 199 mg/dL [facility] Comment:Diabetes: >=200 mg/d L plus symptoms Blood Urea Nitrogen 14 10 - 20 mg/dL [facility] Creatinine 1.75(H) 0.80 - 1.50 mg/dL [facility] Comment: Please note that the pediatric reference intervals supplied above were not validated at [facility]. Results from pediatric patients should be interpreted in conjunction to the patient's age, height and muscle mass. Sodium 143 135 - 145 mmol/L [facility] Potassium 3.3(L) 3.5 - 5.0 mmol/L [facility] Comment: Please note: ??Patients with WBC >100,000 may have falsely elevated Potassium levels. ??For accurate Potassium quantification in these patients send serum separator tube (gold top) for subsequent determinations. ??Contact the Clinical Chemistry Laboratory if there are any questions. Chloride 105 98 - 107 mmol/L [facility] Carbon Dioxide 23 22 - 31 mmol/L [facility] Anion Gap 15 5 - 15 mmol/L [facility] Calcium 8.5 8.5 - 10.5 mg/dL [facility] Est Glomerular Filtration Rate 39(L) >=60 [facility] [...] the following links into your internet browser. [email or web address] Blood specimen (specimen) 12/10/2015 5:23 AM EDT 12/10/2015 5:42 AM EDT Narrative Resulting Agency Comment Spec In Lab Jennifer Amaro MD CHEMISTRY ROCHELLE David Organization Address City/State/ZIP Co de Phone Number [facility] [place] [address] * (ABNORMAL) Basic Metabolic Panel (non-fasting) (12/09/2015 3:00 PM EDT) Glucose 197 65 - 199 mg/dL [facility] Comment:Diabetes: >=200 mg/d L plus symptoms Blood Urea Nitrogen 19 10 - 20 mg/dL [facility] Creatinine 1.96(H) 0.80 - 1.50 mg/dL [facility] Comment: Please note that the pediatric reference intervals supplied above were not validated at [facility]. Results from pediatric patients should be interpreted in conjunction to the patient's age, height and muscle mass. Sodium 140 135 - 145 mmol/L [facility] Potassium 3.4(L) 3.5 - 5.0 mmol/L [facility] Comment: Please note: ??Patients with WBC >100,000 may have falsely elevated Potassium levels. ??For accurate Potassium quantification in these patients send serum separator tube (gold top) for subsequent determinations. ??Contact the Clinical Chemistry Laboratory if there are any questions. Chloride 102 98 - 107 mmol/L [facility] Carbon Dioxide 24 22 - 31 mmol/L [facility] Anion Gap 14 5 - 15 mmol/L [facility] Calcium 8.3(L) 8.5 - 10.5 mg/dL [facility] Est Glomerular Filtration Rate 34(L) >=60 [facility] [...] the following links into your internet browser. [email or web address] Blood specimen (specimen) 12/09/2015 3:00 PM EDT 12/09/2015 3:07 PM EDT Narrative Resulting Agency Comment Spec In Lab Jennifer Amaro MD CHEMISTRY ORDE RABLES Performing Organization Address [facility] Co de Phone Number [facility] [place] [address] * Sodium, urine, random (12/09/2015 12:24 PM EDT) Sodium, Urine 98 mmol/L [facility] Urine specimen (specimen) 12/09/2015 12:24 PM EDT 12/09/2015 12:36 PM EDT Narrative Resulting Agency Comment Spec In Lab Jennifer Amaro MD URINE ORDERABL ES Performing Organization Address [facility] Co de Phone Number [facility] [place] [address] * Blood culture (12/09/2015 10:32 AM EDT) Blood Culture No growth at 5 days. [facility] Blood specimen (specimen) ANTECUBITAL REGION STRUCTURE / Unknown 12/09/2015 10:32 AM EDT 12/09/2015 11:24 AM EDT Comment:2ND SET Narrative Resulting Agency Comment Spec In Lab Jennifer Amaro MD MICROBIOLOGY - BLOOD ORDERABLES Performing Organization Address [facility] Co de Phone Number [facility] [place] [address] * Blood culture (12/09/2015 10:20 AM EDT) Blood Culture No growth at 5 days. [facility] Blood specimen (specimen) STRUCTURE OF RIGHT HAND / Unknown 12/09/2015 10:20 AM EDT 12/09/2015 11:31 AM EDT Comment:#1 Narrative Resulting Agency Comment Spec In Lab Jennifer Amaro MD MICROBIOLOGY - BLOOD ORDERABLES Performing Organization Address City/[facility]/ZIP Co de Phone Number [facility] [place] [address] * Urine culture Indwelling Catheter Urine (12/09/2015 9:58 AM EDT) Urine Culture No growth (Less than 1,000 cfu/ml). [facility] Urine specimen obtained via indwelling urinary catheter (specimen) 12/09/2015 9:58 AM EDT 12/09/2015 11:26 AM EDT Narrative Resulting Agency Comment Spec In Lab Jennifer Amaro MD MICROBIOLOGY - GENERAL ORDERABLES Performing Organization Address [facility] Co de Phone Number [facility] [place] [address] * (ABNORMAL) Differential, Automated (12/09/2015 4:41 AM EDT) Neutrophil % 68.1 % [facility] Neutrophil Absolute 3.17 1.50 - 6.30 x10(3)/mc L [facility] Lymph % 18.3 % [facility] Lymphocytes Abs 0.8(L) 1.0 - 3.6 x10(3)/mc L [facility] Monocyte % 5.6 % [facility] Monocyte Abs 0.3 0.2 - 1.0 x10(3)/mc L [facility] Eos % 4.5 % [facility] Eosinophils Abs 0.2 0.0 - 0.5 x10(3)/mc L [facility] Basophil % 0.9 % [facility] Baso Absolute 0.0 0.0 - 0.2 x10(3)/mc L [facility] Immature Gran % 2.60 % [facility] Comment: Immature granulocytes(IG's)percentage and absolute count will include metamyelocytes, myelocytes, and promyelocytes. Blood smears from CBCs yielding IG's will be scanned manually for concordance. If this scan disagrees with the automated IG or if promyelocytes are noted, a manual differential will be performed. Immature Gran Absolute 0.12(H) 0.00 - 0.05 x10(3)/mc L [facility] Blood specimen (specimen) 12/09/2015 4:41 AM EDT 12/09/2015 4:56 AM EDT Narrative Resulting Agency Comment Spec In Lab Jennifer Amaro MD HEMATOLOGY ORD ERABLES [facility] [place] [address] * (ABNORMAL) Hemogram (12/09/2015 4:41 AM EDT) White Blood Cell 4.6 4.0 - 10.0 x10(3)/mc L [facility] Red Blood Cell 3.82(L) 4.63 - 6.08 x10(6)/mc L [facility] Hemoglobin 12.2(L) 13.7 - 17.5 gm/dL [facility] Hematocrit 34.8(L) 40.0 - 51.0 % [facility] Mean Cell Volume 91.1 79.0 - 92.0 fL [facility] Mean Cell Hemoglobin 31.9 25.6 - 32.2 pg [facility] Mean Cell Hemoglobin Concentration 35.1 32.0 - 36.5 gm/dL [facility] Platelet 142(L) 145 - 370 x10(3)/mc L [facility] RDW Standard Deviation 46.4(H) 35.0 - 46.0 fL [facility] RDW coefficient of variation 14.0 10.9 - 14.4 % [facility] Mean Platelet Volume 9.9 9.0 - 12.0 fL [facility] Blood specimen (specimen) 12/09/2015 4:41 AM EDT 12/09/2015 4:56 AM EDT Narrative Resulting Agency Comment Spec In Lab Jennifer Amaro MD HEMATOLOGY ORD ERABLES Performing Organization Address [facility] Co de Phone Number [facility] [place] [address] * Phosphorus (12/09/2015 4:41 AM EDT) Phosphorus 3.1 2.5 - 4.5 mg/dL [facility] Blood specimen (specimen) 12/09/2015 4:41 AM EDT 12/09/2015 4:56 AM EDT Narrative Resulting Agency Comment Spec In Lab Jennifer Amaro MD CHEMISTRY ROCHELLE JENNINGS Performing Organization Address [facility] de Phone Number [facility] [place] [address] * Magnesium (12/09/2015 4:41 AM EDT) Magnesium 0.80 0.69 - 1.07 mmol/L [facility] Blood specimen (specimen) 12/09/2015 4:41 AM EDT 12/09/2015 4:56 AM EDT Narrative Resulting Agency Comment Spec In Lab Jennifer Amaro MD CHEMISTRY ORDBhargav JENNINGS Performing Organization Address [facility] Co de Phone Number [facility] [place] [address] * (ABNORMAL) Basic Metabolic Panel (non-fasting) (12/09/2015 4:41 AM EDT) Glucose 134 65 - 199 mg/dL [facility] Comment:Diabetes: >=200 mg/d L plus symptoms Blood Urea Nitrogen 21(H) 10 - 20 mg/dL [facility] Creatinine 2.16(H) 0.80 - 1.50 mg/dL [facility] Comment: Please note that the pediatric reference intervals supplied above were not validated at [facility]. Results from pediatric patients should be interpreted in conjunction to the patient's age, height and muscle mass. Sodium 140 135 - 145 mmol/L [facility] Potassium 3.3(L) 3.5 - 5.0 mmol/L [facility] Comment: Please note: ??Patients with WBC >100,000 may have falsely elevated Potassium levels. ??For accurate Potassium quantification in these patients send serum separator tube (gold top) for subsequent determinations. ??Contact the Clinical Chemistry Laboratory if there are any questions. Chloride 101 98 - 107 mmol/L [facility] Carbon Dioxide 23 22 - 31 mmol/L [facility] Anion Gap 16(H) 5 - 15 mmol/L [facility] Calcium 8.7 8.5 - 10.5 mg/dL [facility] Est Glomerular Filtration Rate 31(L) >=60 [facility] [...] the following links into your internet browser. [email or web address] Blood specimen (specimen) 12/09/2015 4:41 AM EDT 12/09/2015 4:56 AM EDT Narrative Resulting Agency Comment Spec In Lab Jennifer Amaro MD CHEMISTRY ROCHELLE JENNINGS [facility] [place] [address] * POCT Glucose (12/08/2015 8:28 PM EDT) Glucose, POC 109 65 - 199 mg/dL [facility] Comment: Supplemental ranges: <140 mg/dL before meals <180 mg/dL all other times of the day Blood specimen (specimen) 12/08/2015 8:28 PM EDT 12/08/2015 8:28 PM EDT Jennifer Amaro MD POINT OF CARE TEST ORDERABLES Performing Organization Address [facility] Co de Phone Number [facility] [place] [address] * (ABNORMAL) Magnesium (12/08/2015 3:59 PM EDT) Magnesium 0.64(L) 0.69 - 1.07 mmol/L [facility] Blood specimen (specimen) 12/08/2015 3:59 PM EDT 12/08/2015 4:05 PM EDT Narrative Resulting Agency Comment Spec In Lab Jennifer Amaro MD CHEMISTRY ORDE RABLES Performing Organization Address [facility] Co de Phone Number [facility] [place] [address] * (ABNORMAL) Basic Metabolic Panel (non-fasting) (12/08/2015 3:59 PM EDT) Glucose 233(H) 65 - 199 mg/dL [facility] Comment:Diabetes: >=200 mg/d L plus symptoms Blood Urea Nitrogen 24(H) 10 - 20 mg/dL [facility] Creatinine 2.25(H) 0.80 - 1.50 mg/dL [facility] Comment: Please note that the pediatric reference intervals supplied above were not validated at [facility]. Results from pediatric patients should be interpreted in conjunction to the patient's age, height and muscle mass. Sodium 137 135 - 145 mmol/L [facility] Potassium 3.2(L) 3.5 - 5.0 mmol/L [facility] Comment: Please note: ??Patients with WBC >100,000 may have falsely elevated Potassium levels. ??For accurate Potassium quantification in these patients send serum separator tube (gold top) for subsequent determinations. ??Contact the Clinical Chemistry Laboratory if there are any questions. Chloride 99 98 - 107 mmol/L [facility] Carbon Dioxide 21(L) 22 - 31 mmol/L [facility] Anion Gap 17(H) 5 - 15 mmol/L [facility] Calcium 8.0(L) 8.5 - 10.5 mg/dL [facility] Est Glomerular Filtration Rate 29(L) >=60 [facility] [...] the following links into your internet browser. [email or web address] Blood specimen (specimen) 12/08/2015 3:59 PM EDT 12/08/2015 4:05 PM EDT Narrative Resulting Agency Comment Spec In Lab Jennifer Amaro MD CHEMISTRY ORDBhargav JENNINGS Performing Organization Address [facility] Co de Phone Number [facility] [place] [address] * POCT Glucose (12/08/2015 11:40 AM EDT) Glucose, POC 167 65 - 199 mg/dL [facility] Comment: Supplemental ranges: <140 mg/dL before meals <180 mg/dL all other times of the day Blood specimen (specimen) 12/08/2015 11:40 AM EDT 12/08/2015 11:40 AM EDT Jennifer Amaro MD POINT OF CARE TEST ORDERABLES Performing Organization Address City/[facility]/ZIP Co de Phone Number [facility] [place] [address] * POCT Glucose (12/08/2015 7:30 AM EDT) Pathologist [facility] Glucose, POC 177 65 - 199 mg/dL [facility] Comment: Supplemental ranges: <140 mg/dL before meals <180 mg/dL all other times of the day Blood specimen (specimen) 12/08/2015 7:30 AM EDT 12/08/2015 7:30 AM EDT Jennifer Amaro MD POINT OF CARE TEST ORDERABLES Performing Organization Address [facility]/ZIP Co de Phone Number [facility] [place] [address] * (ABNORMAL) Blood culture (12/08/2015 1:17 AM EDT) [facility] Blood Culture Klebsiella oxytoca isolated This organism expresses extended spectrum beta-lactamase which inactivates penicillins, cephalosporins, and aztreonam. Susceptibilitie s previously reported (A) [facility] Gram Stain Bottle Growth detected in aerobic and anaerobic bottles. Gram Negative Rods seen (A) [facility] Organism Gram Negative Rods(A) [facility] Blood specimen (specimen) STRUCTURE OF RIGHT HAND / Unknown 12/08/2015 1:17 AM EDT 12/08/2015 2:20 AM EDT Narrative Resulting Agency Comment Spec In Lab Jennifer Amaro MD MICROBIOLOGY - BLOOD ORDERABLES Performing Organization Address City/[facility]/ZIP Co de Phone Number [facility] [place] [address] * Scan, Peripheral Blood (12/08/2015 1:01 AM EDT) Pathologist [facility] Plat estimate Normal [facility] RBC Morphology Normal [facility] Blood specimen (specimen) 12/08/2015 1:01 AM EDT 12/08/2015 1:12 AM EDT Narrative Resulting Agency Comment Spec In Lab Jennifer Amaro MD HEMATOLOGY ORD ERABLES Performing Organization Address City/[facility]/[place] [address] * (ABNORMAL) Differential, Automated (12/08/2015 1:01 AM EDT) Neutrophil % 79.8 % [facility] Neutrophil Absolute 3.78 1.50 - 6.30 x10(3)/mc L [facility] Lymph % 6.3 % [facility] Lymphocytes Abs 0.3(L) 1.0 - 3.6 x10(3)/mc L [facility] Monocyte % 4.9 % [facility] Monocyte Abs 0.2 0.2 - 1.0 x10(3)/mc L [facility] Eos % 0.4 % [facility] Eosinophils Abs 0.0 0.0 - 0.5 x10(3)/mc L [facility] Basophil % 0.2 % [facility] Baso Absolute 0.0 0.0 - 0.2 x10(3)/mc L [facility] Immature Gran % 8.40 % [facility] Comment: Immature granulocytes(IG's)percentage and absolute count will include metamyelocytes, myelocytes, and promyelocytes. Blood smears from CBCs yielding IG's will be scanned manually for concordance. If this scan disagrees with the automated IG or if promyelocytes are noted, a manual differential will be performed. Immature Gran Absolute 0.40(H) 0.00 - 0.05 x10(3)/mc L [facility] Blood specimen (specimen) 12/08/2015 1:01 AM EDT 12/08/2015 1:12 AM EDT Narrative Resulting Agency Comment Spec In Lab Jennifer Amaro MD HEMATOLOGY ORD ERABLES Performing Organization Address City/[facility]/ZIP Co de Phone Number [facility] [place] [address] * (ABNORMAL) Hemogram (12/08/2015 1:01 AM EDT) White Blood Cell 4.7 4.0 - 10.0 x10(3)/mc L [facility] Red Blood Cell 3.92(L) 4.63 - 6.08 x10(6)/mc L [facility] Hemoglobin 12.6(L) 13.7 - 17.5 gm/dL [facility] Hematocrit 36.2(L) 40.0 - 51.0 % [facility] Mean Cell Volume 92.3(H) 79.0 - 92.0 fL [facility] Mean Cell Hemoglobin 32.1 25.6 - 32.2 pg [facility] Mean Cell Hemoglobin Concentration 34.8 32.0 - 36.5 gm/dL [facility] Platelet 151 145 - 370 x10(3)/[facility] LABORATORY RDW Standard Deviation 46.4(H) 35.0 - 46.0 fL [facility] RDW coefficient of variation 13.9 10.9 - 14.4 % [facility] Mean Platelet Volume 9.8 9.0 - 12.0 fL [facility] Blood specimen (specimen) 12/08/2015 1:01 AM EDT 12/08/2015 1:12 AM EDT Narrative Resulting Agency Comment Spec In Lab Jennifer Amaro MD HEMATOLOGY ORD ERABLES [facility] [place] [address] * (ABNORMAL) Blood culture (12/08/2015 1:01 AM EDT) Pathologist [facility] Blood Culture Klebsiella oxytoca isolated This organism expresses extended spectrum beta-lactamase which inactivates penicillins, cephalosporins, and aztreonam. Susceptibilitie s previously reported (A) [facility] Gram Stain Aerobic Growth detected in aerobic bottle. Gram Negative Rods seen (A) [facility] Gram Stain Anaerobic Growth detected in anaerobic bottle. Gram Negative Rods seen (A) [facility] Organism Gram Negative Rods(A) [facility] Blood specimen (specimen) RIGHT ELBOW REGION STRUCTURE / Unknown 12/08/2015 1:01 AM EDT 12/08/2015 2:20 AM EDT Narrative Resulting Agency Comment Spec In Lab Jennifer Amaro MD MICROBIOLOGY - BLOOD ORDERABLES Performing Organization Address [facility] Co de Phone Number [facility] [place] [address] * Cryoglobulin (12/08/2015 1:01 AM EDT) Cryoglobulin See Note [facility] Comment: Cryoglobulins negative at 24 and 72 hours. This test was developed and its performance characteristics determined by [facility]. It has not been cleared or approved by the FDA. The laboratory is regulated under CLIA as qualified to perform high-complexity testing. This test is used for clinical purposes. It should not be regarded as investigational or for research. Blood specimen (specimen) 12/08/2015 1:01 AM EDT 12/08/2015 1:12 AM EDT Narrative Resulting Agency Comment Spec In Lab Jennifer Amaro MD CHEMISTRY ORDE RABLES Performing Organization Address [facility] Co de Phone Number [facility] [place] [address] * Hepatitis C RNA, quantitative, PCR (12/08/2015 1:01 AM EDT) HCV Viral Load 150,327 IU/mL [facility] HCV Viral Load Result: [id number] IU/mL Indication for Study: Hepatitis C Infection Analysis: A quantitiative real time reverse transcriptase PCR assay was performed on extracted viral RNA for the purpose of quantification. Sample: plasma (1 mL minimum volume) Method: Kirsten June TaqMAN 48 HCV Linear Range: 15 IU/mL - 100,000,000IU/mL (95% CI) Note: This assay is being performed in the [facility] Molecular Pathology Laboratory. Gibson Good, Ph.D. Director, Molecular Pathology [facility] Comment: [VERIFIED DATE]12.12.15 Verified By:Xiomy Gupta (Electronic Signature) Blood specimen (specimen) 12/08/2015 1:01 AM EDT 12/10/2015 11:17 AM EDT Narrative Resulting Agency Comment Spec In Lab Jennifer Amaro MD MOLECULAR ROCHELLE JENNINGS Performing Organization Address [facility] Co de Phone Number [facility] [place] [address] * (ABNORMAL) Phosphorus (12/08/2015 1:01 AM EDT) Phosphorus 1.7(L) 2.5 - 4.5 mg/dL [facility] Blood specimen (specimen) 12/08/2015 1:01 AM EDT 12/08/2015 1:12 AM EDT Narrative Resulting Agency Comment Spec In Lab Jennifer Amaro MD CHEMISTRY ROCHELLE JENNINGS Performing Organization Address [facility] Co de Phone Number [facility] [place] [address] * (ABNORMAL) Magnesium (12/08/2015 1:01 AM EDT) Magnesium 0.43(L) 0.69 - 1.07 mmol/L [facility] Blood specimen (specimen) 12/08/2015 1:01 AM EDT 12/08/2015 1:12 AM EDT Narrative Resulting Agency Comment Spec In Lab Jennifer Amaro MD CHEMISTRY ROCHELLE JENNINGS Performing Organization Address City/[facility] Co de Phone Number [facility] [place] [address] * (ABNORMAL) Basic Metabolic Panel (non-fasting) (12/08/2015 1:01 AM EDT) Glucose 161 65 - 199 mg/dL [facility] Comment:Diabetes: >=200 mg/d L plus symptoms Blood Urea Nitrogen 26(H) 10 - 20 mg/dL [facility] Creatinine 2.27(H) 0.80 - 1.50 mg/dL [facility] Comment: Please note that the pediatric reference intervals supplied above were not validated at [facility]. Results from pediatric patients should be interpreted in conjunction to the patient's age, height and muscle mass. Sodium 140 135 - 145 mmol/L [facility] Potassium 3.5 3.5 - 5.0 mmol/L [facility] Comment: result [id number] Please note: ??Patients with WBC >100,000 may have falsely elevated Potassium levels. ??For accurate Potassium quantification in these patients send serum separator tube (gold top) for subsequent determinations. ??Contact the Clinical Chemistry Laboratory if there are any questions. Chloride 102 98 - 107 mmol/L [facility] Carbon Dioxide 21(L) 22 - 31 mmol/L [facility] Anion Gap 17(H) 5 - 15 mmol/L [facility] Calcium 8.6 8.5 - 10.5 mg/dL [facility] Comment:result rechecked-llu Est Glomerular Filtration Rate 29(L) >=60 [facility] [...] the following links into your internet browser. [email or web address] Blood specimen (specimen) 12/08/2015 1:01 AM EDT 12/08/2015 1:12 AM EDT Narrative Resulting Agency Comment Spec In Lab Jennifer Amaro MD CHEMISTRY ORDBhargav HORNLES Performing Organization Address [facility]/ZIP Co de Phone Number [facility] [place] [address] * POCT Glucose (12/07/2015 9:07 PM EDT) Glucose, POC 166 65 - 199 mg/dL [facility] Comment: Supplemental ranges: <140 mg/dL before meals <180 mg/dL all other times of the day Blood specimen (specimen) 12/07/2015 9:07 PM EDT 12/07/2015 9:07 PM EDT Jennifer Amaro MD POINT OF CARE TEST ORDERABLES Performing Organization Address [facility] Co de Phone Number [facility] [place] [address] * EKG 12 Lead (12/07/2015 8:48 PM EDT) Ventricular rate 79 BPM MUSE SYSTEM Atrial Rate 79 BPM MUSE SYSTEM P-R Interval 166 ms MUSE SYSTEM QRS Duration 108 ms MUSE SYSTEM Q-T Interval 360 ms MUSE SYSTEM QTC Calculated (Bezet) 412 ms MUSE SYSTEM Calculated P [place] 30 degrees MUSE SYSTEM Calculated R [place] -44 degrees MUSE SYSTEM Calculated T [place] -14 degrees MUSE SYSTEM INTERPRETATION Sinus rhythm with marked sinus arrhythmia Left axis deviation Abnormal ECG When compared with ECG of 14-NOV-2015 17:24, No significant change was found Confirmed by MD DAMON SALVATORE ([id number]) on 12/08/2015 1:04:24 PM MUSE SYSTEM 12/07/2015 8:48 PM EDT 12/08/2015 1:04 PM EDT Jennifer Amaro MD ECG ORDERABLES Performing Organization Address [facility] Co de Phone Number MUSE SYSTEM * (ABNORMAL) Differential, Manual (12/07/2015 8:07 PM EDT) Segmented Neutrophils Manual 76 % [facility] Band % 15 % [facility] Lymphocyte Manual 6 % [facility] Monocyte Manual 1 % [facility] Metamyelocyte Manual 2 % [facility] Segs Absolute Manual 2.5 1.5 - 6.3 x10(3)/ L [facility] Band Abs 0.5 0.2 - 0.6 x10(3)/[facility] [place] LABORATORY ANC 2.99 1.50 - 6.30 x10(3)/[facility] LAB[facility]ATORY Lymph Absolute Manual 0.2(L) 1.0 - 3.6 x10(3)/ L [facility] Monocyte Absolute Manual 0.0(L) 0.2 - 1.0 x10(3)/[facility] [place] LABORATORY Emeigh Absolute Manual 0.1(H) 0.0 - 0.0 x10(3)/[facility] [place] LABORATORY Total Cells Ct 100 [facility] Plat estimate Decreased [facility] RBC Morphology Abnormal [facility] Ovalocytes 1-5 /HPF [facility] Tear Cell 1-5 /HPF [facility] Evan Cells 1-5 /HPF [facility] Blood specimen (specimen) 12/07/2015 8:07 PM EDT 12/07/2015 8:12 PM EDT Narrative Resulting Agency Comment Spec In Lab Jennifer Amaro MD HEMATOLOGY ORD ERABLES [facility] [place] [address] * Red Hold (12/07/2015 8:07 PM EDT) Red Hold Sample in lab. [facility] Blood specimen (specimen) Venous Draw / Unknown 12/07/2015 8:07 PM EDT 12/07/2015 8:43 PM EDT Jennifer Amaro MD CHEMISTRY ORDE DICK [facility] [place] [address] * (ABNORMAL) Hemogram (12/07/2015 8:07 PM EDT) White Blood Cell 3.3(L) 4.0 - 10.0 x10(3)/mc L [facility] Red Blood Cell 2.39(L) 4.63 - 6.08 x10(6)/mc L [facility] Hemoglobin 7.4(L) 13.7 - 17.5 gm/dL [facility] Comment: This result has been called to JOSE Blum by MELISSA VANEGAS on 12 07 2015 at 2054, and has been read back. Hematocrit 22.2(L) 40.0 - 51.0 % [facility] Mean Cell Volume 92.9(H) 79.0 - 92.0 fL [facility] Mean Cell Hemoglobin 31.0 25.6 - 32.2 pg [facility] Mean Cell Hemoglobin Concentration 33.3 32.0 - 36.5 gm/dL [facility] Platelet 102(L) 145 - 370 x10(3)/mc L [facility] RDW Standard Deviation 46.9(H) 35.0 - 46.0 fL [facility] RDW coefficient of variation 13.8 10.9 - 14.4 % [facility] Mean Platelet Volume 9.5 9.0 - 12.0 fL [facility] Blood specimen (specimen) 12/07/2015 8:07 PM EDT 12/07/2015 8:12 PM EDT Narrative Resulting Agency Comment Spec In Lab Jennifer Amaro MD HEMATOLOGY ORD ERABG [facility] [place] [address] * Lactate, whole blood, send to lab (12/07/2015 8:07 PM EDT) Lactate WB 0.9 0.5 - 2.2 mmol/L [facility] Blood specimen (specimen) 12/07/2015 8:07 PM EDT 12/07/2015 8:12 PM EDT Narrative Resulting Agency Comment Spec In Lab Jennifer Amaro MD CHEMISTRY ROCHELLE JENNINGS [facility] [place] [address] * XR Chest PA & Lateral (Generic) (12/07/2015 5:47 PM EDT) Anatomical Region Laterality Modality Chest N/A Digital Radiogra phy Impressions 12/07/2015 5:53 PM EDT No evidence of active disease. Narrative 12/07/2015 5:53 PM EDT EXAMINATION: XR CHEST ROUTINE PA AND LATERAL CLINICAL HISTORY: FEVERS, CHILLS RULE OUT PNEUMONIA, S/P KIDNEY TRANSPLANT TECHNIQUE: PA and lateral chest x-ray COMPARISON: 11/27/2015 FINDINGS: The heart is normal. The thoracic aorta is tortuous. Mediastinum is otherwise normal. There is no pleural disease. There is no evidence of a pulmonary infiltrate. Procedure Note Zeeshan Bruce MD - 12/07/2015 EXAMINATION: XR CHEST ROUTINE PA AND LATERAL CLINICAL HISTORY: FEVERS, CHILLS RULE OUT PNEUMONIA, S/P KIDNEYTRANSPLANT TECHNIQUE: PA and lateral chest x-ray COMPARISON: 11/27/2015 FINDINGS: The heart is normal. The thoracic aorta is tortuous. Mediastinum isotherwise normal. There is no pleural disease. There is no evidence of a pulmonary infiltrate. IMPRESSION No evidence of active disease. Jennifer Amaro MD IMG DX ORDERAB LES * POCT Glucose (12/07/2015 5:14 PM EDT) Glucose, POC 170 65 - 199 mg/dL [facility] Comment: Supplemental ranges: <140 mg/dL before meals <180 mg/dL all other times of the day Blood specimen (specimen) 12/07/2015 5:14 PM EDT 12/07/2015 5:14 PM EDT Jennifer Amaro MD POINT OF CARE TEST ORDERABLES [facility] [place] [phone] * Duplex Renal Transplant, Unilat (12/07/2015 10:46 AM EDT) VB Text Report Department: Vascular Surgery Lab Patient: [id number] (ETHEL AKINS) CPT: 98169V ICD10: N18.5 Referring Physician: JENNIFER AMARO ?? 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 flow/obstruction ICD10 Diagnosis Code: N18.5 Findings: Ama Renal Aorta ? PSV (cm/s): 93 ? EDV (cm/s): 7 Renal Hilum, Right ? RI: 1.47 Renal Artery Proximal, Left ? PSV (cm/s): 83 ? EDV (cm/s): 20 ? RAR-VT: 0.9 ? RI: 0.76 Renal Artery Mid, Left ? PSV (cm/s): 122 ? EDV (cm/s): 27 ? RAR-VT: 1.3 ? RI: 0.78 Renal Artery Distal, Left ? PSV (cm/s): 138 ? EDV (cm/s): 44 ? RAR-VT: 1.5 ? RI: 0.68 Upper Pole Renal Parenchyma, Left ? PSV (cm/s): 24 ? EDV (cm/s): 8 ? RI: 0.67 Lower Pole Renal Parenchyma, Left ? PSV (cm/s): 25 ? EDV (cm/s): 7 ? RI: 0.72 Renal Hilum, Left ? PSV (cm/s): 92 ? EDV (cm/s): 43 ? RI: 1.47 ? AT (ms): 27 Kidney Length, Left ? Length (cm): 11.1 Renal Vein, Left ? Patent: Patent External Iliac Artery, Proximal, Left ? PSV (cm/s): 100 ? EDV (cm/s): 17 ? RI: 0.83 External Iliac Artery, Mid, Left ? PSV (cm/s): 122 ? EDV (cm/s): 0 ? RI: 1.00 External Iliac Artery, Distal, Left ? PSV (cm/s): 90 ? EDV (cm/s): 1 ? RI: 0.99 Interpretation: Left: Patent transplanted renal artery with no evidence of hemodynamically significant stenosis. Patent main renal vein. Comparison: No previous study of transplanted left kidney in our vascular lab database for comparison. Electronically Signed by: YUNIOR EDWARDS on 2015-12-11 01:16:04 PM VASCUBASE VB Text Report End of Report VASCUBASE 12/07/2015 10:4 6 AM EDT Jennifer Amaro MD VASCULAR ORDER IGNACIO VASCUBASE documented in this encounter Visit Diagnoses Diagnosis Tachycardia Tachycardia, unspecified UTI (urinary tract infection) Urinary tract infection, site not specified documented in this encounter Admitting Diagnoses Diagnosis UTI (urinary tract infection) Urinary tract infection, site not specified documented in this encounter Administered Medications Inactive Administered Medications - up to 3 most recent administrations Medication Order MAR Action Action Date Dose Rate Site acetaminophen (TYLENOL) tablet 1,000 mg 1,000 mg, Oral, EVERY 6 HOURS PRN, Starting on Thu12/07/15 at 1923, Until Laura 12/13/15 at 1552, Pain, Fever, Maximum dose of acetaminophen is 4000 mg from all sources in 24 hours., Routine Given 12/13/2015 8:20 AM EDT 1,000 mg Given 12/10/2015 8:51 PM EDT 1,000 mg Given 12/08/2015 11:04 PM EDT 1,000 mg calciTRIol (ROCALTROL) capsule 0.5 mcg 0.5 mcg, Oral, DAILY, First dose on Thu12/07/15 at 1900, Until Discontinued, Routine Given 12/13/2015 8:19 AM EDT 0.5 mcg Given 12/12/2015 8:50 AM EDT 0.5 mcg Given 12/11/2015 8:40 AM EDT 0.5 mcg ciprofloxacin (CIPRO) tablet 500 mg 500 mg, Oral, 2 TIMES DAILY, 23 doses, First dose (after last modification) on Thu12/11/15 at 1900, Last dose on Thu12/22/15 at 1900, Routine, Indication for (Active or Suspected): Urinary Tract/Pyelonephritis Given 12/13/2015 6:19 AM EDT 500 mg Given 12/12/2015 6:19 PM EDT 500 mg Given 12/12/2015 6:22 AM EDT 500 mg clopidogrel (PLAVIX) tablet 75 mg 75 mg, Oral, DAILY, First dose on Thu12/08/15 at 0900, Until Discontinued, Routine Given 12/13/2015 8:18 AM EDT 75 mg Given 12/12/2015 8:49 AM EDT 75 mg Given 12/11/2015 8:44 AM EDT 75 mg DILTiazem (DILTIAZEM CD) ER capsule 120 mg 120 mg, Oral, DAILY, First dose on Thu12/08/15 at 0900, Until Discontinued, DO NOT CRUSH OR OPEN, Routine Given 12/13/2015 8:19 AM EDT 120 mg Given 12/12/2015 8:50 AM EDT 120 mg Given 12/11/2015 8:39 AM EDT 120 mg docusate sodium (COLACE) capsule 100 mg 100 mg, Oral, 2 TIMES DAILY, First dose on Thu12/07/15 at 2100, Until Discontinued, Routine Given 12/07/2015 9:21 PM EDT 100 mg fludrocortisone (FLORINEF) tablet 100 mcg 100 mcg (0.1 mg), Oral, DAILY, First dose on Thu12/09/15 at 1800, Until Discontinued, Routine Given 12/13/2015 8:18 AM EDT 100 mcg Given 12/12/2015 8:50 AM EDT 100 mcg Given 12/11/2015 8:39 AM EDT 100 mcg heparin (porcine) subcutaneous injection 5,000 Units 5,000 Units, Subcutaneous, EVERY 8 HOURS SCHEDULED, First dose on Thu12/07/15 at 1700, Until Discontinued, Routine Given 12/11/2015 3:17 PM EDT 5,000 Unit s Given 12/11/2015 6:23 AM EDT 5,000 Units Given 12/10/2015 8:54 PM EDT 5,000 Units levothyroxine (SYNTHROID) tablet 75 mcg 75 mcg, Oral, EVERY MORNING, First dose on Thu12/08/15 at 0600, Until Discontinued, Routine Given 12/13/2015 6:19 AM EDT 75 mcg Given 12/12/2015 6:22 AM EDT 75 mcg Given 12/11/2015 6:22 AM EDT 75 mcg magnesium oxide (MAG-OX) tablet 400 mg 400 mg, Oral, 2 TIMES DAILY, First dose on Thu12/07/15 at 2100, Until Discontinued, Routine Given 12/08/2015 9:23 AM EDT 400 mg Given 12/07/2015 9:22 PM EDT 400 mg magnesium oxide (MAG-OX) tablet 800 mg 800 mg, Oral, 3 TIMES DAILY, First dose (after last modification) on Thu12/08/15 at 1500, Until Discontinued, Routine Given 12/13/2015 8:19 AM EDT 800 mg Given 12/12/2015 8:33 PM EDT 800 mg Given 12/12/2015 3:36 PM EDT 800 mg magnesium sulfate 2 g in sterile water 50 mL 2 g, Intravenous, ONCE, 1 dose, On Thu12/08/15 at 0930, Administer over 120 Minutes Given 12/08/2015 11:20 AM EDT 2 g 25 mL/hr magnesium sulfate 2 g in sterile water 50 mL 2 g, Intravenous, ONCE, 1 dose, On Thu12/08/15 at 1830, Administer over 120 Minutes Given 12/08/2015 8:35 PM EDT 2 g 25 mL/hr magnesium sulfate 2 g in sterile water 50 mL 2 g, Intravenous, ONCE, 1 dose, On Thu12/10/15 at 0700, Administer over 120 Minutes Given 12/10/2015 9:17 AM EDT 2 g 25 mL/hr magnesium sulfate 2 g in sterile water 50 mL 2 g, Intravenous, ONCE, 1 dose, On Thu12/11/15 at 1200, Administer over 120 Minutes Given 12/11/2015 12:11 PM EDT 2 g 25 mL/hr magnesium sulfate 2 g in sterile water 50 mL 2 g, Intravenous, ONCE, 1 dose, On Thu12/12/15 at 1000, Administer over 120 Minutes Given 12/12/2015 10:42 AM EDT 2 g 25 mL/hr MEROpenem (MERREM) 1g vial attach to sodium chloride 0.9% 100 mL Mini-Bag Plus 1 g, Intravenous, EVERY 12 HOURS, First dose on Thu12/10/15 at 1100, Until Discontinued, Administer over 30 Minutes, Indication for (Active or Suspected): Urinary Tract/Pyelonephritis, Restricted Antibiotic: Please indicate the most appropriate choice: ID Approval by Selena Fatima Given 12/11/2015 11:00 AM EDT 1 g 200 mL/hr Given 12/10/2015 11:24 PM EDT 1 g 200 mL/hr Given 12/10/2015 12:57 PM EDT 1 g 200 mL/hr mycophenolate (CELLCEPT) capsule 500 mg 500 mg, Oral, 2 TIMES DAILY, First dose on Thu12/07/15 at 2100, Until Discontinued, DO NOT CRUSH OR OPEN, Routine Given 12/13/2015 8:19 AM EDT 500 mg Given 12/12/2015 8:33 PM EDT 500 mg Given 12/12/2015 8:50 AM EDT 500 mg ondansetron (ZOFRAN) injection 4 mg 4 mg, Intravenous, EVERY 8 HOURS PRN, Starting on Thu12/07/15 at 1640, Until Laura 12/13/15 at 1552, Nausea, May repeat times one in 30 minutes if ineffective. If multiple antiemetics are ordered, use ondanstron first, Recovery (Recovery-Hospital Unit) ondansetron (ZOFRAN) tablet 4 mg 4 mg, Oral, EVERY 8 HOURS PRN, Starting on Thu12/07/15 at 1640, Until Laura 12/13/15 at 1552, Nausea, Vomiting, If multiple antiemetics are ordered, use ondansetron first. PO Preferred. If patient unable to take PO, may give IV if ordered. May repeat times one in 45 minutes if ineffective., Recovery (Recovery-Hospital Unit), Routine pantoprazole (PROTONIX) injection 40 mg 40 mg, Intravenous, DAILY, First dose on Thu12/09/15 at 0900, Until Discontinued Given 12/13/2015 8:19 AM EDT 40 mg Given 12/12/2015 8:52 AM EDT 40 mg Given 12/11/2015 8:44 AM EDT 40 mg piperacillin-tazobactam (ZOSYN) 3.375 g in dextrose 5% 50 mL 3.375 g, Intravenous, EVERY 8 HOURS, First dose on Thu12/07/15 at 1800, Until Discontinued, Administer over 4 Hours, Indication for (Active or Suspected): Urinary Tract/Pyelonephritis Given 12/10/2015 9:40 AM EDT 3.375 g 12.5 mL/hr Given 12/10/2015 2:11 AM EDT 3.375 g 12.5 mL/hr Given 12/09/2015 6:08 PM EDT 3.375 g 12.5 mL/hr potassium chloride (K-DUR/KLOR-CON) extended release tablet 40 mEq 40 mEq, Oral, ONCE, 1 dose, On Thu12/09/15 at 0730, 20 mEq tablet may be dissolved in water for administration, Routine Given 12/09/2015 8:24 AM EDT 40 mEq potassium chloride (K-DUR/KLOR-CON) extended release tablet 40 mEq 40 mEq, Oral, ONCE, 1 dose, On Thu12/09/15 at 2330, 20 mEq tablet may be dissolved in water for administration, Routine Given 12/10/2015 12:02 AM EDT 40 mEq potassium chloride (K-DUR/KLOR-CON) extended release tablet 40 mEq 40 mEq, Oral, 2 TIMES DAILY, 2 doses, First dose on Thu12/10/15 at 0900, Last dose on Thu12/10/15 at 2100, 20 mEq tablet may be dissolved in water for administration, Routine Given 12/10/2015 9:30 AM EDT 40 mEq potassium phosphate (monobasic) (K-PHOS) tablet 500 mg 500 mg, Oral, 3 TIMES DAILY, First dose on Thu12/08/15 at 1500, Until Discontinued, Dissolve tablets in 6-8 oz of water; for best results, soak tablets in water for 2-5 minutes, then stir and give to patient. Please dose at least two hours before or after the magnesium tablet dosing., Routine Given 12/10/2015 11:24 PM EDT 500 mg Given 12/10/2015 5:31 PM EDT 500 mg Given 12/10/2015 11:10 AM EDT 500 mg potassium phosphate (monobasic) (K-PHOS) tablet 500 mg 500 mg, Oral, 4 TIMES DAILY WITH MEALS & NIGHTLY, First dose (after last modification) on Thu12/11/15 at 1200, Until Discontinued, Dissolve tablets in 6-8 oz of water; for best results, soak tablets in water for 2-5 minutes, then stir and give to patient. Please dose at least two hours before or after the magnesium tablet dosing., Routine Given 12/13/2015 11:47 AM EDT 500 mg Given 12/13/2015 8:19 AM EDT 500 mg Given 12/12/2015 8:32 PM EDT 500 mg potassium phosphate 15 mMol in sodium chloride 0.9% 250 mL 15 mmol, Intravenous, EVERY 4 HOURS, 2 doses, First dose on Thu12/08/15 at 1200, Last dose on Thu12/08/15 at 1600, Administer over 4 Hours, Administer over 4-6 hours Given 12/08/2015 8:19 PM EDT 15 mmol 62.5 mL/hr Given 12/08/2015 3:22 PM EDT 15 mmol 62.5 mL/hr potassium phosphate 15 mMol in sodium chloride 0.9% 250 mL 15 mmol, Intravenous, EVERY 4 HOURS, 2 doses, First dose (after last reorder) on Thu12/10/15 at 0800, Last dose on Thu12/10/15 at 1200, Administer over 4 Hours, Administer over 4-6 hours Given 12/10/2015 3:19 PM EDT 15 mmol 62.5 mL/hr Given 12/10/2015 11:12 AM EDT 15 mmol 62.5 mL/hr potassium phosphate 15 mMol in sodium chloride 0.9% 250 mL 15 mmol, Intravenous, EVERY 4 HOURS, 2 doses, First dose (after last reorder) on Thu12/11/15 at 1100, Last dose on Thu12/11/15 at 1500, Administer over 4 Hours, Administer over 4-6 hours Given 12/11/2015 4:42 PM EDT 15 mmol 62.5 mL/hr Given 12/11/2015 12:11 PM EDT 15 mmol 62.5 mL/hr sodium chloride 0.45% infusion 30 mL/hr, Intravenous, CONTINUOUS, Starting on Thu12/11/15 at 1045, Until Thu12/12/15 at 0640 Rate/Dose Change 12/11/2015 9:27 PM EDT 30 mL/hr 30 mL/hr New Bag 12/11/2015 6:18 PM EDT 75 mL/hr 75 mL/hr Rate/Dose Change 12/11/2015 5:19 PM EDT 75 mL/hr 75 mL/h r sodium chloride 0.9 % flush 5 mL 5 mL, Intravenous, 2 TIMES DAILY, First dose on Thu12/07/15 at 2100, Until Discontinued, Recovery (Recovery-Hospital Unit), Routine Given 12/13/2015 8:24 AM EDT 5 mLs Given 12/12/2015 8:35 PM EDT 5 mLs Given 12/12/2015 8:52 AM EDT 5 mLs sodium chloride 0.9% 1,000 mL IV bolus Intravenous, ONCE, 1 dose, On Thu12/07/15 at 1715 Given 12/07/2015 5:14 PM EDT sodium chloride 0.9% 1,000 mL IV bolus Intravenous, ONCE, 1 dose, On Thu12/08/15 at 1115 Given 12/08/2015 1:49 PM EDT sodium chloride 0.9% 1,000 mL IV bolus at 500 mL/hr, Intravenous, ONCE, 1 dose, On Thu12/09/15 at 0845 Given 12/09/2015 10:06 AM EDT 500 mL/hr sodium chloride 0.9% 1,000 mL IV bolus at 500 mL/hr, Intravenous, ONCE, 1 dose, On Thu12/09/15 at 1545 Given 12/09/2015 4:55 PM EDT 500 mL/hr sodium chloride 0.9% 1,000 mL IV bolus Intravenous, ONCE, 1 dose, On Thu12/10/15 at 0015 Given 12/10/2015 12:05 AM EDT sodium chloride 0.9% 1,000 mL IV bolus Intravenous, ONCE, 1 dose, On Thu12/10/15 at 1915 Given 12/10/2015 7:15 PM EDT sodium chloride 0.9% infusion 150 mL/hr, Intravenous, CONTINUOUS, Starting on Thu12/07/15 at 1700, Until Thu12/09/15 at 1659, Recovery (Recovery-Hospital Unit) New Bag 12/09/2015 9:27 PM EDT 150 mL/hr 150 mL /hr New Bag 12/09/2015 11:56 AM EDT 150 mL/hr 150 mL/hr New Bag 12/08/2015 8:20 PM EDT 150 mL/hr 150 mL/hr sodium chloride 0.9% infusion 500 mL/hr, Intravenous, ONCE, 1 dose, On Thu12/09/15 at 1700, Please give a one time 1000cc bolus of normal saline over 2 hours, then resume normal saline at 150 cc/hr. thanks New Bag 12/09/2015 7:30 PM EDT 500 mL/hr 500 mL/hr sodium chloride 0.9% infusion 150 mL/hr, Intravenous, CONTINUOUS, Starting on Thu12/10/15 at 0015, Until Thu12/11/15 at 1015 New Bag 12/11/2015 6:23 AM EDT 150 mL/hr 150 mL/hr New Bag 12/10/2015 10:00 PM EDT 150 mL/hr 150 mL/hr New Bag 12/10/2015 1:02 PM EDT 150 mL/hr 150 mL/hr sulfamethoxazole-trimethoprim (BACTRIM;SEPTRA) 400-80 mg per tablet 1 tablet 1 tablet, Oral, DAILY, First dose on Thu12/08/15 at 0900, Until Discontinued, Routine, Indication for (Active or Suspected): Prophylaxis Given 12/13/2015 8:19 AM EDT 1 tablet Given 12/12/2015 9:00 AM EDT 1 tablet Given 12/11/2015 8:40 AM EDT 1 tablet tacrolimus (PROGRAF) capsule 1 mg 1 mg, Oral, 2 TIMES DAILY, First dose on Thu12/07/15 at 2100, Until Discontinued, Routine Given 12/13/2015 8:19 AM EDT 1 mg Given 12/12/2015 8:43 PM EDT 1 mg Given 12/12/2015 8:49 AM EDT 1 mg tamsulosin (FLOMAX) ER capsule 0.4 mg 0.4 mg, Oral, NIGHTLY, First dose on Thu12/07/15 at 2100, Until Discontinued, DO NOT CRUSH OR OPEN, Routine Given 12/12/2015 8:32 PM EDT 0.4 mg Given 12/11/2015 9:41 PM EDT 0.4 mg Given 12/10/2015 8:51 PM EDT 0.4 mg valGANciclovir (VALCYTE) tablet 450 mg 450 mg, Oral, EVERY OTHER DAY, First dose (after last reorder) on Thu12/08/15 at 0900, Until Discontinued, Routine, Indication for (Active or Suspected): Prophylaxis Given 12/10/2015 9:12 AM EDT 450 mg Given 12/08/2015 9:24 AM EDT 450 mg valGANciclovir (VALCYTE) tablet 450 mg 450 mg, Oral, DAILY WITH BREAKFAST, First dose (after last modification) on Thu12/11/15 at 0800, Until Discontinued, Routine, Indication for (Active or Suspected): Prophylaxis Given 12/13/2015 8:19 AM EDT 450 mg Given 12/12/2015 8:50 AM EDT 450 mg Given 12/11/2015 8:40 AM EDT 450 mg documented in this encounter Active and Recently Administered Medications Times are shown in EDT. Scheduled Medication Order 12/11/2015 12/12/2015 12/13/2015 calciTRIol (ROCALTROL) capsule 0.5 mcg 0.5 mcg, Oral, DAILY, First dose on Thu12/07/15 at 1900, Until Discontinued, Routine 0840 (Given - Provider: Monique Christian RN) 0850 (Given - Provider: Selena Nicolas RN) 0819 (Given - Provider: Kenyetta Tom RN) ciprofloxacin (CIPRO) tablet 500 mg 500 mg, Oral, 2 TIMES DAILY, 23 doses, First dose (after last modification) on Thu12/11/15 at 1900, Last dose on Thu12/22/15 at 1900, Routine, Indication for (Active or Suspected): Urinary Tract/Pyelonephritis 181 (Given - Provider: Selena Nicolas RN) 0622 (Given - Provider: Anatoly Chapman RN)1819 (Given - Provider: Selena Nicolas RN) 0619 (Given - Provider: Perla Mccann RN) clopidogrel (PLAVIX) tablet 75 mg 75 mg, Oral, DAILY, First dose on Thu12/08/15 at 0900, Until Discontinued, Routine 0844 (Given - Provider: Monique Christian RN) 0849 (Given - Provider: Selena Nicolas RN) 0818 (Given - Provider: Kenyetta Tom RN) DILTiazem (DILTIAZEM CD) ER capsule 120 mg 120 mg, Oral, DAILY, First dose on Thu12/08/15 at 0900, Until Discontinued, DO NOT CRUSH OR OPEN, Routine 0839 (Given - Provider: Monique Christian RN) 0850 (Given - Provider: Selena Nicolas RN) 0819 (Given - Provider: Kenyetta Tom RN) docusate sodium (COLACE) capsule 100 mg 100 mg, Oral, 2 TIMES DAILY, First dose on Thu12/07/15 at 2100, Until Discontinued, Routine 0900 (Not Given - Provider: Monique Christian RN - Reason: Patient/family refused)2100 (Not Given - Provider: Anatoly Chapman RN - Reason: Patient/family refused) 0900 (Not Given - Provider: Selena Nicolas RN - Reason: Contraindicated)2031 (Not Given - Provider: Perla Mccann RN - Reason: Patient/family refused) 0900 (Not Given - Provider: Kenyetta Tom RN - Reason: Patient/family refused) fludrocortisone (FLORINEF) tablet 100 mcg 100 mcg (0.1 mg), Oral, DAILY, First dose on Thu12/09/15 at 1800, Until Discontinued, Routine 0839 (Given - Provider: Monique Christian RN) 0850 (Given - Provider: Selena Nicolas RN) 0818 (Given - Provider: Kenyetta Tom RN) heparin (porcine) subcutaneous injection 5,000 Units 5,000 Units, Subcutaneous, EVERY 8 HOURS SCHEDULED, First dose on Thu12/07/15 at 1700, Until Discontinued, Routine 0623 (Given - Provider: Rolando Grewal RN)1517 (Given - Provider: Selena Nicolas RN)2200 (Hold - Provider: Selena Nicolas RN - Reason: Contraindicated) 0600 (Hold - Provider: Selena Nicolas RN - Reason: Contraindicated)1400 (Not Given - Provider: Selena Nicolas RN - Reason: Patient/family refused)2200 (Not Given - Provider: Perla Mccann RN - Reason: Patient/family refused) 0600 (Not Given - Provider: Perla Mccann RN - Reason: Patient/family refused) levothyroxine (SYNTHROID) tablet 75 mcg 75 mcg, Oral, EVERY MORNING, First dose on 12/08/15 at 0600, Until Discontinued, Routine 0622 (Given - Provider: Rolando Grewal RN) 0622 (Given - Provider: Anatoly Chapman RN) 0619 (Given - Provider: Perla Mccann RN) magnesium oxide (MAG-OX) tablet 800 mg 800 mg, Oral, 3 TIMES DAILY, First dose (after last modification) on Thu12/08/15 at 1500, Until Discontinued, Routine 0839 (Given - Provider: Monique Christian RN)1517 (Given - Provider: Selena Nicolas RN)2142 (Given - Provider: Anatoly Chapman RN) 0850 (Given - Provider: Selena Nicolas RN)1536 (Given - Provider: Selena Nicolas RN)2033 (Given - Provider: Perla Mccann RN) 0819 (Given - Provider: Kenyetta Tom RN) magnesium sulfate 2 g in sterile water 50 mL (COMPLETED) 2 g, Intravenous, ONCE, 1 dose, On Thu12/11/15 at 1200, Administer over 120 Minutes 1211 (Given - Provider: Selena Nicolas RN) magnesium sulfate 2 g in sterile water 50 mL (COMPLETED) 2 g, Intravenous, ONCE, 1 dose, On Thu12/12/15 at 1000, Administer over 120 Minutes 1042 (Given - Provider: Selena Nicolas RN) MEROpenem (MERREM) 1g vial attach to sodium chloride 0.9% 100 mL Mini-Bag Plus (CANCELED) 1 g, Intravenous, EVERY 12 HOURS, First dose on Thu12/10/15 at 1100, Until Discontinued, Administer over 30 Minutes, Indication for (Active or Suspected): Urinary Tract/Pyelonephritis, Restricted Antibiotic: Please indicate the most appropriate choice: ID Approval by Selena Fatima 1100 (Given - Provider: Selena Nicolas RN) mycophenolate (CELLCEPT) capsule 500 mg 500 mg, Oral, 2 TIMES DAILY, First dose on Thu12/07/15 at 2100, Until Discontinued, DO NOT CRUSH OR OPEN, Routine 0838 (Given - Provider: Monique Christian RN)214 (Given - Provider: Anatoly Chapman, JADEN) 0850 (Given - Provider: Selena Nicolas, JADEN)2032 (Given - Provider: Perla Mccann RN) 08 (Given - Provider: Kenyetta Tom RN) pantoprazole (PROTONIX) injection 40 mg 40 mg, Intravenous, DAILY, First dose on Thu12/09/15 at 0900, Until Discontinued 0844 (Given - Provider: Monique Christian RN) 0852 (Given - Provider: Selena Nicolas RN) 08 (Given - Provider: Kenyetta Tom RN) polyethylene glycol (MIRALAX) packet 17 g 17 g, Oral, DAILY, First dose on Thu12/07/15 at 1700, Until Discontinued, Routine 0900 (Not Given - Provider: Monique Christian RN - Reason: Patient/family refused) 0900 (Not Given - Provider: Selena Nicolas RN - Reason: Contraindicated) 0900 (Not Given - Provider: Kenyetta Tom RN - Reason: Patient/family refused) potassium phosphate (monobasic) (K-PHOS) tablet 500 mg 500 mg, Oral, 4 TIMES DAILY WITH MEALS & NIGHTLY, First dose (after last modification) on Thu12/11/15 at 1200, Until Discontinued, Dissolve tablets in 6-8 oz of water; for best results, soak tablets in water for 2-5 minutes, then stir and give to patient. Please dose at least two hours before or after the magnesium tablet dosing., Routine 1211 (Given - Provider: Selena Nicolas RN)1642 (Given - Provider: Selena Nicolas RN)2142 (Given - Provider: Anatoly Chapman, JADEN) 0849 (Given - Provider: Selena Nicolas, JADEN)1249 (Given - Provider: Selena Nicolas, JADEN)174 (Given - Provider: Selena Nicolas RN)2032 (Given - Provider: Perla Mccann RN) 0819 (Given - Provider: Kenyetta Tom, AJDEN)1147 (Given - Provider: Selena Nicolas RN) potassium phosphate 15 mMol in sodium chloride 0.9% 250 mL (COMPLETED) 15 mmol, Intravenous, EVERY 4 HOURS, 2 doses, First dose (after last reorder) on Thu12/11/15 at 1100, Last dose on Thu12/11/15 at 1500, Administer over 4 Hours, Administer over 4-6 hours 1211 (Given - Provider: Selena Nicolas RN)1642 (Given - Provider: Selena Nicolas RN) sodium chloride 0.9 % flush 5 mL 5 mL, Intravenous, 2 TIMES DAILY, First dose on Thu12/07/15 at 2100, Until Discontinued, Recovery (Recovery-Hospital Unit), Routine 0900 (Not Given - Provider: Monique Christian RN - Reason: See comment - Comment: infusing )2142 (Given - Provider: Anatoly Chapman RN) 0852 (Given - Provider: Selena Nicolas RN)203 (Given - Provider: Perla Mccann, JADEN) 0824 (Given - Provider: Kenyetta Tom, JADEN) sulfamethoxazole-trimet hoprim (BACTRIM;SEPTRA) 400-80 mg per tablet 1 tablet 1 tablet, Oral, DAILY, First dose on Thu12/08/15 at 0900, Until Discontinued, Routine, Indication for (Active or Suspected): Prophylaxis 0840 (Given - Provider: Monique Christian RN) 0900 (Given - Provider: Selena Nicolas RN) 0819 (Given - Provider: Kenyetta Tom RN) tacrolimus (PROGRAF) capsule 1 mg 1 mg, Oral, 2 TIMES DAILY, First dose on Thu12/07/15 at 2100, Until Discontinued, Routine 0839 (Given - Provider: Monique Christian RN)214 (Given - Provider: Anatoly Chapman RN) 0849 (Given - Provider: Selena Nicolas RN)204 (Given - Provider: Perla Mccann, JADEN) 08 (Given - Provider: Kenyetta Tom RN) tamsulosin (FLOMAX) ER capsule 0.4 mg 0.4 mg, Oral, NIGHTLY, First dose on Thu12/07/15 at 2100, Until Discontinued, DO NOT CRUSH OR OPEN, Routine 2140 (Given - Provider: Anatoly Chapman, JADEN) 2031 (Given - Provider: Perla Mccann RN) valGANciclovir (VALCYTE) tablet 450 mg 450 mg, Oral, DAILY WITH BREAKFAST, First dose (after last modification) on Thu12/11/15 at 0800, Until Discontinued, Routine, Indication for (Active or Suspected): Prophylaxis 0840 (Given - Provider: Monique Christian RN) 0850 (Given - Provider: Selena Nicolas RN) 0819 (Given - Provider: Kenyetta Tom, JADEN) Continuous Medication Order 12/11/2015 12/12/2015 12/13/2015 sodium chloride 0.45% infusion (CANCELED) 30 mL/hr, Intravenous, CONTINUOUS, Starting on Thu12/11/15 at 1045, Until Thu12/12/15 at 0640 1120 (New Bag - Provider: Selena Nicolas RN)1719 (Rate/Dose Change - Provider: Selena Nicolas RN)1818 (New Bag - Provider: Selena Nicolas RN)2127 (Rate/Dose Change - Provider: Anatoly Chapman RN) 0653 (Stopped - Provider: Anatoly Chapman RN) sodium chloride 0.9% infusion (CANCELED) 150 mL/hr, Intravenous, CONTINUOUS, Starting on Thu12/10/15 at 0015, Until Thu12/11/15 at 1015 0623 (New Bag - Provider: Rolando Grewal RN) PRN Medication Order 12/11/2015 12/12/2015 12/13/2015 acetaminophen (TYLENOL) tablet 1,000 mg 1,000 mg, Oral, EVERY 6 HOURS PRN, Starting on Thu12/07/15 at 1923, Until Thu12/13/15 at 1552, Pain, Fever, Maximum dose of acetaminophen is 4000 mg from all sources in 24 hours., Routine 0820 (Given - Provid er: Kenyetta Tom RN) lidocaine (XYLOCAINE) 10 mg/mL (1 %) injection 3 mg 3 mg (0.3 mL), Subcutaneous, ONCE PRN, 1 dose, Starting on Thu12/07/15 at 1640, Until Laura 12/13/15 at 1552, for discomfort with PIV insertion, Recovery (Recovery-Hospital Unit), Routine ondansetron (ZOFRAN) injection 4 mg(Linked Group 1) 4 mg, Intravenous, EVERY 8 HOURS PRN, Starting on Thu12/07/15 at 1640, Until Laura 12/13/15 at 1552, Nausea, May repeat times one in 30 minutes if ineffective. If multiple antiemetics are ordered, use ondanstron first, Recovery (Recovery-Hospital Unit) ondansetron (ZOFRAN) tablet 4 mg(Linked Group 1) 4 mg, Oral, EVERY 8 HOURS PRN, Starting on Thu12/07/15 at 1640, Until Laura 12/13/15 at 1552, Nausea, Vomiting, If multiple antiemetics are ordered, use ondansetron first. PO Preferred. If patient unable to take PO, may give IV if ordered. May repeat times one in 45 minutes if ineffective., Recovery (Recovery-Hospital Unit), Routine sodium chloride 0.9 % flush 5-20 mL 5-20 mL, Intravenous, EVERY 1 MIN PRN, Starting on Thu12/07/15 at 1640, Until Laura 12/13/15 at 1552, flush, Flush pertains to all indwelling lines. Flush per protocol found in the job aid using the link provided on this medication record., Recovery (Recovery-Hospital Unit), Routine Linked Groups Order Group 1: ondansetron (ZOFRAN) tablet 4 mgJump to med 4 mg, Oral, EVERY 8 HOURS PRN, Starting on Thu12/07/15 at 1640, Until Laura 12/13/15 at 1552, Nausea, Vomiting, If multiple antiemetics are ordered, use ondansetron first. PO Preferred. If patient unable to take PO, may give IV if ordered. May repeat times one in 45 minutes if ineffective., Recovery (Recovery-Hospital Unit), Routine Or ondansetron (ZOFRAN) injection 4 mgJump to med 4 mg, Intravenous, EVERY 8 HOURS PRN, Starting on Thu12/07/15 at 1640, Until Laura 69/16 at 1552, Nausea, May repeat times one in 30 minutes if ineffective. If multiple antiemetics are ordered, use ondanstron first, Recovery (Recovery- Hospital Unit) documented in this encounter Care Teams Director Specialty Relationship Specialty Start Date End Date [place] Denis DO [address] [place] [address] PCP - General 09/03/12 03/17/22 Ruchi Valles RN Nurse Clinic Transplant Surgery 07/30/15 documented as of this encounter
--- OUTSIDE RECORDS SUMMARY | 2024-02-14 11:33 | XMS_ITS | Encounter Summary ---
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 Name Role Phone [place] Denis DO Primary Care Provider Reason for Referral * Surgical (Routine) - Specialty Diagnoses / Procedures Referred By Humberto flor Referred To Contact Radiology Diagnoses Kidney transplant infection Francisco Valencia MD [facility] [place] [address] [place] [address] Referral ID Status Reason Start Date Expiration Date Visits Requested Visits Authorized [id number] Specialty Service Requested 01/02/2016 01/01/2017 1 1 Reason for Visit * Auth/Cert Specialty Diagnoses / Procedures Referred By Humberto flor Referred To Contact Diagnoses RAY (acute kidney injury) RAY - RO REJECTION / SP RENAL TRANSPLANT Referral ID Status Reason Start Date Expiration Date Visits Re quested Visits Authorized [id number] 1 1 Encounter Details Date Type Department Care Team (Late st Contact Info) Description 12/28/2015 11:19 AM EDT - 01/03/2016 10:40 AM EDT Hospital Encounter [address] [place] [address] Tal Eagle MD [facility] [place] [address] Que Amaro MD [facility] [place] [address] Kidney transplant infection Discharge Disposition: Home Social History Tobacco Use [...] Sign Reading Time Taken Comments Blood Pressure 136/69 01/03/2016 8:03 AM EDT Pulse 72 01/03/2016 8:03 AM EDT Temperature 36.6 ??C (97.9 ??F) 01/03/2016 8:03 AM ED T Respiratory Rate 17 01/03/2016 8:03 AM EDT Oxygen Saturation 96% 01/03/2016 4:50 AM EDT Inhaled Oxygen Concentration - - Weight 91.8 kg (202 lb 6.1 oz) 01/03/2016 5:51 A M EDT Height 177.8 cm (5' 10) 12/28/2015 4:27 PM EDT Body Mass Index 29.04 12/28/2015 4:27 PM EDT documented in this encounter Discharge Summaries * Victor Manuel Torre MD - 01/03/2016 9:52 AM EDT Discharge Summary Patient Name: Ethel Akins Patient Age: 65 y.o. Language: Kazakh Race: White Ethnicity: Not nor Admit date: 12/28/2015 Discharge date and time: 01/03/2016 Attending Physician: Que Amaro,* Follow-up Recommendations for Providers: -Nephroureterostomy tube to be kept in place for at least four weeks -Antegrade nephrostogram to be set up for four weeks from now to characterize ureteral stricture -Nephroureterostomy tube to be capped today and remain capped. If urination decreases, please call immediately as it is likely that it will need to be capped Inpatient Provider Contact Information: Que Amaro MD [facility] Transplant [phone] Discharge Diagnoses (Hospital Problems) and Secondary Diagnoses (Chronic Problems): Active Hospital Problems Diagnosis ??? RAY (acute kidney injury) Resolved Hospital Problems Diagnosis Date Resolved No resolved problems to display. Active Non-Hospital Problems Diagnosis ??? UTI (urinary tract infection) ??? Kidney transplant infection ??? Renal failure ??? Chronic kidney disease, stage V ??? HCV (hepatitis C virus) ??? ESRD (end stage renal disease) ??? Hepatitis C virus infection ??? Essential hypertension ??? CGN (chronic glomerulonephritis) ??? DM type 2 (diabetes mellitus, type 2) ??? Hypertension ??? DJD (degenerative joint disease) ??? Hematuria Operations/Major Procedures: Operations: None Other Major Procedures: 12/28/15: Transplant kidney nephrostomy tube placement in IR 01/01/16: Transplant kidney antegrade nephrostogram with nephnephroureterostomy stent placement in IR History of Presentation: Mr. Akins is a 65 PMH significant forDMII HTN and HCV now s/p DDKT on 09/16/2015 with post-operative course significant for recurrent UTIs requiring readmission on 11/11 and 12/06. He has done well since his last admission and has been maintaining PO intake of 3 L. He continues to void and double void to avoid over distension of his bladder. He presented today to transplant clinic for his follow up. His laboratory work today is concerning for a Creatinine of 7.29. He denies any fevers, chills, nausea vomiting. No pyuria, hematuria or dysuria. ?? Hospital Course: Mr. Akins was admitted to [facility] from the Transplant clinic. Fludrocortisone discontinued. Transplant kidney U/S showed increased pelvicaliectasis with mild dilation of the proximal ureter. On HD #3, IR was consulted and placed transplant kidney 8 Fijian nephrostomy tube. Urology was consulted and recommended anterior nephrostogram in IR, which was performed on HD #5. Nephrostogram revealed UPJ obstruction, which was stented bu exchange of the nephrostomy tube for an 8.5 Fijian nephroureterostomy tube. With this, he began to produce some urine from his moran catheter, but the majority of urine was still from the nephroureterostomy. Moran was removed. Per IR and urology, tube was left uncapped for 48 hours and then capped on the morning of hospital day #7. On hospital day #7, he was deemed to be safe for discharge to his outpatient hepatology and cardiology appointments. He will stop by the Transplant clinic later this afternoon so we can assess if he is urinating or obstructing. Hewas instructed in uncapping the tube and placing a bag prior to leaving; if urination is not adequate at home, he is to call and we will instruct him to do so. Otherwise, nephroureterostomy should remained capped if tolerated. Will follow-up with labs in transplant clinic again tomorrow and then will have a repeat antegrade nephrostogram in IR in four weeks with follow-up in Urology clinic shortly thereafter. Prior to discharge, Mr. Akins was tolerating a regular, low Na+ diet, ambulating independently, and having bowel movements. He was deemed ready for discharge by the Transplant team. Of note, prior to discharge, his cellcept dose was lowered to 250 mg bid due to presence of BK virus positive titers. Additionally, his fludrocortisone was stopped while in the hospital. Vital Signs at Discharge: BP: 136/69, Heart Rate: 72, Temp: 36.6 ??C (97.9 ??F), Resp: 17, BMI (Calculated): 31.2 Height: 177.8 cm (5' 10) (12/28/15 1627) Weight - Scale: 91.8 kg (202 lb 6.1 oz) (01/03/16 0551) Functional and Cognitive Status: Intact Important Studies and Lab Data: Labs: Cr 3.36 Studies: 12/29/2015: Nephrostomy tube placement Procedure: LLQ transplant nephrostomy tube placement ?? 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 He continues tovoid and double void to avoid over distension of his bladder. He presented with a Creatinine of 7.29. US demonstrated hydronephrosis and PCN placement is requested. ?? Technique: Review of the [facility] US exam shows mild hydronephrosis; no perinephric fluid present. ?? After obtaining informed consent, the left lower quadrant was prepped and draped in a sterile fashion; maximal sterile barrier technique was employed throughout the case. 1% lidocaine was used as local anesthesia. ?? Under US guidance, the transplant collecting system was accessed with a 21 ga needle. Position within the calyx was confirmed with an injection of contrast material. A 0.018 wire was advanced into the renal pelvis without difficulty. A 5 Fr stiffened micropuncture dilator was then placed and the 0.018 wire exchanged for a 0.035 Aggarwal wire. The access track was dilated to 8 Fr and an 8 Fr locking loop PCN catheter placed. The urine was clear and not turbid. Position was again confirmed with a small injection of contrast. The catheter was then connected to external bag drainage and secured to the adjacent skin with 2-0 nylon suture. . ?? The patient tolerated the procedure well. ? Complications: None immediate; EBL=0 ?? Medications: 1% lidocaine (<10 cc); versed 1.5 mg; fentanyl 75 mcg ?? Contrast: 5 cc non-ionic/omnipaque ?? Fluoroscopy time: 1.2 minutes ? Findings: 1. Mild hydronephrosis on US evaluation. 2. US/fluoroscopic guided placement of an 8 Fr PCN drain as detailed above. 01/01/16: IR nephroureterostomy tube placement VIR PROCEDURE NOTE: Percutaneous nephrostomy check, ureteral stricture balloon dilatation, nephroureterostomy tube placement ?? INDICATION: history of transplant kidney, now with hydro s/p PCN placement, resolving renal function; negative CT for obstructing ureteral stones ?? TECHNIQUE: Informed consent was obtained after the risks, benefits and complications of the procedure were all explained. Due to the painful nature of the procedure, patient was sedated by the IR nurse with split doses of fentanyl and versed. ?? Maximum sterile barrier precautions were used throughout the procedure. The patient was prepped anddraped in supine position. Rabbler image obtained. Through the existing left pelvic percutaneous nephrostomy tube, contrast injected and spot image obtained. 9 cc 1% lidocaine SQ anesthesia administered. Over an 0.035 inch 3J wire, nephrostomy removed, and 4 Fr Berenstein advanced. Ureter selected with angled .035 inch wire and Berenstein advanced to UPJ occlusion. Over .035 inch Amplatz, catheter exchanged for 6 Fr sheath, and through this Berenstein and glidewire advanced across occlusion into bladder. Over wire, 6 mm angioplasty balloon advanced, and stricture dilated x 2 to 6.3 mm (14 opal x1 min, no residual waist). Over the wire, an 8.5 Fr nephroureterostomy tube placed (locking loop distal, with sideholes extending back into renal collecting system.) Contrast study performed. Catheter sutured to skin and left to gravity drainage bag. ?? Contrast: 20 cc. (30 cc discarded) Fluoro Dose: 6 min. EBL: 0 cc ? Findings: Transplant left kidney, occlusion at UPJ. Balloon dilated to 6 mm without waist, and 8.5 Fr nephroureterostomy placed. ? IMPRESSION: 1. 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 2. Balloon dilated to 6 mm 3. 8.5 Fr nephrouerterostomy tube left across stricture ?? Plan : PNU tube to gravity drainage x 48 hours, then cap. Open to gravity drainage bag in case of pain, leakage around tube, fever. ?? Discharge Conditions/Prognosis: Stable Discharge to: home Updated Allergies/ADRs: No Known [...] Continued medications with new dosing Dose Details mycophenolate 250 mg Cap Commonly known as: CELLCEPT Take 1 capsule by mouth 2 times daily. What changed: - how much to take - additional instructions 250 mg Refills: 0 sulfamethoxazole-trimethoprim 400-80 mg Tab Commonly known as: BACTRIM;SEPTRA Take 1 tablet by mouth every other day for 364 days. What changed: when to take this 1 tablet Quantity: 15 tablet Refills: 11 Continued medications, unchanged Dose Details acetaminophen 325 [...] 4 times daily. 2 tablet Refills: 0 ONETOUCH DELICA LANCETS 30 gauge Misc Generic drug: lancets Refills: 0 ONETOUCH ULTRA TEST Strp Generic drug: blood sugar diagnostic strips Refills: 0 ONETOUCH ULTRAMINI Kit Generic drug: blood-glucose meter Refills: 0 polyethylene glycol 17 gram Pwpk Commonly known as: MIRALAX Take 17 g by mouth daily. 17 g Quantity: 14 each Refills: 0 potassium phosphate (monobasic) 500 mg Tbso Commonly known as: K-PHOS Take 2 tablets by mouth 2 times daily. 1000 mg Quantity: 1 tablet Refills: 0 tacrolimus 1 mg Cap Commonly known as: PROGRAF Take 1 mg by mouth 2 times daily. 1 mg Refills: 0 tamsulosin 0.4 mg Cp24 Commonly known as: FLOMAX Take 1 capsule by mouth nightly. 0.4 mg Quantity: 30 capsule Refills: 11 valGANciclovir 450 mg Tab Commonly known as: VALCYTE Take 450 mg by mouth daily. 450 mg Refills: 0 STOPPED Medications fludrocortisone 0.1 mg Tab Commonly known as: FLORINEF Smoking Status at Discharge: History Smoking Status ??? Former Smoker ??? Types: Cigars Smokeless Tobacco ??? Never Used Comment: cigars, only sometimes Multidisciplinary Team Recommendations: -NUTRITION TEAM: The transplant bindery helper has reviewed your dietary limitations (fluid and food)and has provided you with standard post-op instructions. The bindery helper recommendations were as follows: Regular diet, but with 2 gram per day sodium restriction - PHARMACY TEAM: The patient's discharge medication list has been reconciled with the admission medication list. The patient will be discharged with medications in hand and has received medication teaching per transplant service protocol. - SURGERY TEAM: The transplant surgery team coordinated your care during your hospital stay. Refer to discharge instructions below for a detailed list of instructions and limitations to follow. - UROLOGY TEAM: Assessed your transplant ureteral stricture. You will be set up for a repeat nephrostogram in IR in four weeks and then will follow-up with Urology within a week. If you do not receive these important appointments, please call. Instructions Given to Patient at Discharge: Patient Instructions 1. No heavy lifting with stent in place. 2. You may shower. However, you must avoid baths until you stent is removed. 3. Keep drain capped. However, if you notice that you are not voiding at least 1.5 Liters per day, you are likely obstructed and you should call us right away for instructions to uncap drain and hookup to bag for drainage. 4. Return to Transplant clinic 2M today after your other doctor's appointments. 5. You will have a follow-up appointment tomorrow afternoon with Dr. Amaro. We will let you knowthe time when you stop by today. Please call if you don't here from us. 6. Stop taking your fludrocortisone. 7. Please lower your cellcept dose to 250 mg (one pill) twice daily. 8. Before your appointment tomorrow, please go to the lab to have your blood drawn. General Instructions [facility] Vascular and Interventional Radiology Discharge Instructions [...] it is important to empty it regularly. Activity: You may be sore for several [...] is during regular office hours, please call [phone]. If it is after regular office hours, or on weekends or holidays, please call [phone] and ask to speak to the [employer] director airport operations for Interventional Radiology. You have received medication during your procedure to help lesson anxiety and keep you comfortable.These medications affect judgement and reaction time. We [...] contact your M. D. 07/18/11 Revised 07/20/15 Future Appointments and Orders Future Appointments Provider Department Dept Phone 01/03/2016 10:00 AM LAB, THREE L [facility] Lab 01/03/2016 11:00 AM Tulio Marcelo MD Gastroenterology [phone] 01/03/2016 3:30 PM Byron rBown MD Cardiology [phone] 09/15/2016 9:00 AM LAB, THREE L [facility] Lab 09/15/2016 10:00 AM Tal Eagle MD Transplant [phone] Future Orders Complete By Expires Basic Metabolic Panel (non-fasting) [LAB15 Custom] 01/04/2016 01/02/2017 Process Instructions: INCLUDES: Calcium, BUN, Creat, GFR, Glucose, Lytes Scheduling Instructions: Comments: Questions: Magnesium [QPB385 Custom] 01/04/2016 01/02/2017 Process Instructions: Scheduling Instructions: Comments: Questions: Phosphorus [AAZ170 Custom] 01/04/2016 01/02/2017 Process Instructions: Scheduling Instructions: Comments: Questions: IR all procedures [NO CPT CODE Custom] 01/29/2016 01/01/2017 Process Instructions: Scheduling Instructions: Questions: Laterality: Left Is the patient on anticoagulant / anitplatelet therapy ?: Clopidogrel Where will study be performed?: [facility] Reason for exam and clinical history: had nephrostogram with stent placement. need to re-check as has UPJ obstruction. remove stent and replace with nephrostomy tube. Other pertinent information: Exam/Procedure requested: Nephrostogram with removal of stent and placement of nephrostomy tube What labs need to be collected during imaging study?: Does patient require sedation?: GA rationale: Requested Time: Date of injury if applicable: Full code [COD2 Custom] As directed Process Instructions: 1. Completing this order indicates that the recording provider had a discussion with the patient and/or their agent regarding their wishes for resuscitation. 2. If the patient does not have decision making capacity, the provider must document within the order and in the contemporaneous progress note which of the patient's agents the discussion was held with. 3. If this Full Code Order is a revocation or cancellation of a previous DNR order and the providerrecording this order in the system is not the Attending of Record, then the recording provider willhave discussed this order with the Attending of Record and is documenting the decision of the Attending of Record obtained through explicit verbal review. Scheduling Instructions: Questions: Does patient have capacity to make decision: Yes Content of discussion: Referral to Urology [PPL246 Custom] As directed Process Instructions: If no progress note charted, please enter Clinical details in comments. Scheduling Instructions: Questions: My question or request is: Patient has follow up nephrostogram 4 weeks from now to remove stent andplace nephrostomy tube. Please schedule appointment for date close to nephrostogram procedure to review the patient. Scheduled Appointments: You are scheduled to receive routine follow-up care in the transplant clinic: Solid Organ Transplant Department [facility], [address] [address] Future Appointments Date Time Provider Department Center 01/03/2016 10:00 AM [facility] 01/03/2016 11:00 AM Tulio Marcelo MD [facility] 01/03/2016 3:30 PM Byron Brown MD [facility] 09/15/2016 9:00 AM LAB[facility] 09/15/2016 10:00 AM Tal Eagle MD [...] any changes that need to be made. IR all procedures Standing Status: Future Standing Exp. Date: 01/01/17 Question Response Notes Laterality Left Is the patient on anticoagulant / anitplatelet therapy ? Clopidogrel Where will study be performed? [facility] Reason for exam and clinical history: had nephrostogram with stent placement. need to re-check as has UPJ obstruction. remove stent and replace with nephrostomy tube. Exam/Procedure requested: Nephrostogram with removal of stent and placement of nephrostomy tube Basic Metabolic Panel (non-fasting) Standing Status: Future Standing Exp. Date: 01/02/17 Magnesium Standing Status: Future Standing Exp. Date: 01/02/17 Phosphorus Standing Status: Future Standing Exp. Date: 01/02/17 Referral to Urology Referral Priority: Routine Referral Type: Consultation Referral Reason: Consult, Test & Treat Number of Visits Requested: 1 Full code Question Response Notes Does patient have capacity to make decision Yes Provider Contact Information: If you have any questions, or need to report a problem, you can call the Solid Organ Transplant Department anytime (day, night, weekend, holiday) at . After hours, please follow the instructions on the message. You can also reach the yoga coordinator after hours by calling (ask for the yoga coordinator on-call). Discharge References/Attachments None documented in this encounter Discharge Instructions * Discharge Instructions* Zehra Tyson RN - 12/29/2015 3:51 PM EDT [facility] Vascular and Interventional Radiology Discharge Instructions [...] it is important to empty it regularly. Activity: You may be sore for several [...] is during regular office hours, please call [phone]. If it is after regular office hours, or on weekends or holidays, please call [phone] and ask to speak to the [employer] director airport operations for Interventional Radiology. You have received medication during your procedure to help lesson anxiety and keep you comfortable.These medications affect judgement and reaction time. We [...] contact your M. D. 07/18/11 Revised 07/20/15 * Patient Instructions* Victor Manuel Torre MD - 01/03/2016 9:15 AM EDT 1. No heavy lifting with stent in place. 2. You may shower. However, you must avoid baths until you stent is removed. 3. Keep drain capped. However, if you notice that you are not voiding at least 1.5 Liters per day, you are likely obstructed and you should call us right away for instructions to uncap drain and hookup to bag for drainage. 4. Return to Transplant clinic 2M today after your other doctor's appointments. 5. You will have a follow-up appointment tomorrow afternoon with Dr. Amaro. We will let you knowthe time when you stop by today. Please call if you don't here from us. 6. Stop taking your fludrocortisone. 7. Please lower your cellcept dose to 250 mg (one pill) twice daily. 8. Before your appointment tomorrow, please go to the lab to have your blood drawn. documented in this encounter Medications at Time [...] as of this encounter Progress Notes * Cami Leonardo RN - 01/03/2016 10:28 AM EDT Patient discharged to home without services. Patient and received the AVS and have no further questions. Gave extra supplies for nephrostomy. Patient voided before leaving. Patient has a few appointments today before leaving the hospital. will be driving patient home. Patient left the floor at 1030. * Yeimi Elam - 01/03/2016 8:34 AM EDT Urology Inpatient Consult Progress Note ID: Ethel Akins is a 65 y.o. 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 Moran removed, producing urine per urethra, smaller volume than NU stent ?? Improving serum Cr O: Last value Range last 24hrs Temperature Temp: 36.6 ??C (97.9 ??F) Temp: [36.6 ??C (97.9 ??F)-36.9 ??C (98.4 ??F)] Heart Rate Heart Rate: 72 Heart Rate: [70-77] Blood Pressure BP: 136/69 BP: (124-158)/(65-87) Respiratory Rate Resp: 17 Resp: [17-20] SpO2 SpO2: 96 % SpO2: [95 %-96 %] 01/01 0701 - 01/02 0700 In: 1900 [P.O.:1500; I.V.:400] Out: 2940 [Urine:2940] (PCN 650) Physical Exam: General: NAD, resting comfortably, pleasant, conversant CVS: nontachycardic Pulm: breathing comfortably on RA Abd: soft, nontender, non-distended : Moran removed, NU stent draining clear yellow urine Recent Labs 01/02/16 1559 01/02/16 0810 01/01/16 0622 WBC -- 5.6 5.6 HGB -- 13.9 13.4* HCT -- 40.1 38.7* PLATELET -- 230 243 PT 13.6 -- -- INR 1.0 -- -- Recent Labs 01/02/16 0810 01/01/16 0622 NA 136 138 K 4.1 3.9 CL 99 101 CO2 21* 22 BUN 33* 35* CREATININE 3.36* 3.64* GLUCOSE 141 119 CALCIUM 9.6 9.1 MAGNESIUM 0.70 0.74 PHOS 2.8 3.5 IMAGIN/[address] IMPRESSION 1. Transplant kidney in the left lower quadrant with nephrostomy tube in place and air within the renal collecting system. No renal parenchymal or collecting system calculi detected. 2. Mildly hyperdense 5 mm focus within the gallbladder neck suspicious for gallstone. Consider further characterization with right upper quadrant ultrasound. MICRO: Ucx 12/27: 1-9K GP org, probable contaminant ASSESSMENT: Ethel Akins is a 65 y.o. male s/p DDKT, admitted with rising Cr and obstructive uropathy on transplant renal ultrasound. non contrast CT of pelvis unremarkable. Antegrade nephrostogram showing UPJ stricture which was successfully balloon dilated with subsequent nephroureteral stent placement. ?? Recommendations: -ok to cap NU stent, monitor UOP per urethra -ok for discharge from Urology standpoint with close follow up in Transplant clinic -plan for repeat antegrade nephrostogram in 4 weeks time to characterize the transplant ureteral stricture ?? YEIMI ELAM MD 01/03/2016 * Francisco Valencia MD - 01/02/2016 2:14 PM EDT Transplant Surgery Inpatient Progress Note Ethel Akins is a 65 y.o. 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 Renal US showed a post-renal obstruction. S/p percutaneous nephrostomy tube placement on 12/29/2015. In review for high creatinine levels, and no urine through moran. 24hr events: ?? No acute events. Patient was well rested. ?? Patient has his IR procedure with stent placement. ?? Draining through the moran after stent placement. Made 600 until 7 am this morning. ?? Loose motions have decreased ?? Patient active and alert ?? Reports no pain O: Last value Range last 24hrs Temperature Temp: 36.7 ??C (98.1 ??F) Temp: [36.6 ??C (97.9 ??F)-36.7 ??C (98.1 ??F)] Heart Rate Heart Rate: 76 Heart Rate: [66-76] Blood Pressure BP: 124/70 BP: (114-190)/(57-79) Respiratory Rate Resp: 20 Resp: [11-21] SpO2 SpO2: 96 % RA SpO2: [95 %-99 %] 12/31 0701 - 01/01 0700 In: 2330 [P.O.:1720; I.V.:610] Out: 1575 [Urine:1575] Labs: Recent Labs 01/02/16 0810 01/01/16 0622 12/31/15 0759 WBC 5.6 5.6 6.5 HGB 13.9 13.4* 14.2 HCT 40.1 38.7* 40.8 PLATELET 230 243 273 Recent Labs 01/02/16 0810 01/01/16 0622 12/31/15 0759 12/30/15 1543 NA 136 138 139 142 K 4.1 3.9 4.3 4.2 CL 99 101 102 104 CO2 21* 22 21* 20* BUN 33* 35* 39* 44* CREATININE 3.36* 3.64* 4.36* 5.20* GLUCOSE 141 119 126 140 CALCIUM 9.6 9.1 9.6 9.1 MAGNESIUM 0.70 0.74 0.75 -- PHOS 2.8 3.5 3.4 -- Microbiology: 12/27 UCx: GP organisms Imaging: - 12/27 Renal US: IMPRESSION 1. 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 The urinary bladder at the time ofscanning was virtually empty. 2. Borderline elevated RI measurements throughout the kidney. 12/29 CT scan: Impression: - 1. mildy hyperdense 5mm focus within GB neck possible gallstone. 2. Nephrostomy tube in place in transplanted kidney in LLQ 12/30 IR procedure: - 1. 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 Nephrostomy tube also in place and draining well. Ext: no edema Neuro: non-focal, moving all four extremities spontaneously ASSESSMENT: Ethel Akins is a 65 y.o. 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 Renal US concerning for a post-renal obstruction. S/p percutaneous nephrostomy tube on 12/28/2016. Patient doing well and possible discharge tomorrow with Nephrostomy tube in place. Plan for today: - 1) Urology follow up regarding review and have scheduled a follow up nephrostogram 4 weeks from nowwith follow up review with urology 2) Prograf levels awaited for today 3) Ambulate and OOB 4) re-start plavix 5 discontinue fluid restriction 6) cap the nephrostomy tube in 48 hours - 01/02 7) possible discharge tomorrow with review back in transplant clinic on Wednesday 01/03. Medications and Management: - NEURO: Pain control with Tylenol PO. CV: No acute issues. Plavix, Diltiazem continue. PULM: No acute issues GI: Diet Renal diet 2 GM NA. Fiber added if required. : Nephrostomy tube in place. ID: Continue Valganciclovir and Bactrim for prophylaxis, Received Zosyn for mary-operative coverage, no evidence of fecal contamination or indication for antibiotic coverage ENDO/IMMUNO: Continue Cellcept 500 BID, Prograf 07/06, Levothyroxine 75, monitor blood sugars closelywith Q4H sticks, if > 180 please call PROPHYLAXIS: SQH Q12H, Protonix DISPO: Floor status, Full Code Consult: Urology Consult on 12/28/2016 Francisco Valencia MD Associated attestation - Que Amaro MD - 01/02/2016 8:47 PM EDT I have seen the patient and reviewed the resident's above history and I agree with the details as written. The assessment and plan were formulated in discussion with me and I agree with them as documented. * Herlinda Bell, RD - 01/02/2016 1:25 PM EDT Transplant Nutrition Services Initial Note Diet: Renal 2gm Na+ Appetite: good Patient Vitals for the past 168 hrs: Weight 01/02/16 0542 91.4 kg (201 lb 8 oz) 01/01/16 0634 90.9 kg (200 lb 8 oz) 12/31/15 0500 90.6 kg (199 lb 11.8 oz) 12/30/15 0541 91.5 kg (201 lb 12.8 oz) 12/29/15 0515 94.5 kg (208 lb 5.4 oz) 12/28/15 1627 98.4 kg (216 lb 14.9 oz) Body mass index is 28.91 kg/(m^2). Lab Results Component Value Date HGB 13.9 01/02/2016 HCT 40.1 01/02/2016 NA 136 01/02/2016 K 4.1 01/02/2016 BUN 33 (H) 01/02/2016 CREATININE 3.36 (H) 01/02/2016 GLUCOSE 141 01/02/2016 CALCIUM 9.6 01/02/2016 MAGNESIUM 0.70 01/02/2016 PHOS 2.8 01/02/2016 ALBUMIN 4.1 12/28/2015 Cholesterol (in eD-H the component name CHLPL=Cholesterol) Lab Results Component Value Date CHLPL 172 12/28/2015 Significant Meds: Current Facility-Administered Medications Medication Dose Route Frequency Provider Last Rate Last Dose ??? guar gum soluble fiber powder (NUTRISOURCE FIBER) 1 scoop 1 scoop Other BID Francisco Valencia MD 1 scoop at 12/31/15 0945 ??? sulfamethoxazole-trimethoprim (BACTRIM;SEPTRA) 400-80 mg per tablet 1 tablet 1 tablet Oral Daily Dionisio Echols MD 1 tablet at 01/02/1635 ??? clopidogrel (PLAVIX) tablet 75 mg 75 mg Oral Daily Marcus Saravia MD 75 mg at 01/02/16 1213 ??? DILTiazem (DILTIAZEM CD) ER capsule 120 mg 120 mg Oral Daily Marcus Saravia MD 120 mg at 01/01/162056 ??? levothyroxine (SYNTHROID) tablet 75 mcg 75 mcg Oral QAM Marcus Saravia MD 75 mcg at 01/02/16 0613 ??? mycophenolate (CELLCEPT) capsule 500 mg 500 mg Oral BID Marcus Saravia MD 500 mg at 01/02/1635 ??? tacrolimus (PROGRAF) capsule 1 mg 1 mg Oral BID Marcus Saravia MD 1 mg at 01/02/1634 ??? valGANciclovir (VALCYTE) tablet 450 mg 450 mg Oral Daily Marcus Saravia MD 450 mg at 01/02/16834 ??? tamsulosin (FLOMAX) ER capsule 0.4 mg 0.4 mg Oral Nightly Marcus Saravia MD 0.4 mg at ??? magnesium oxide (MAG-OX) tablet 800 mg 800 mg Oral TID Marcus Saravia MD 800 mg at 01/02/1635 ??? sodium chloride 0.9 % flush 5 mL 5 mL Intravenous BID Marcus Saravia MD 5 mL at 01/02/1635 ??? heparin (porcine) subcutaneous injection 5,000 Units 5,000 Units Subcutaneous 2 times per day Marcus Saravia MD 5,000 Units at 01/02/1634 ??? pantoprazole (PROTONIX) tablet 40 mg 40 mg Oral Daily Marcus Saravia MD 40 mg at 01/02/1634 Or ??? pantoprazole (PROTONIX) injection 40 mg 40 mg Intravenous Daily Marcus Saravia MD ??? acetaminophen (TYLENOL) tablet 650 mg 650 mg Oral Q4H PRN Marcus Saravia MD 650 mg at 110 Assessment: Patient's renal function has improved. Patient no longer requires a Renal diet at this time. Recommend lower sodium intake at this time but no longer requires a low phosphorus diet and should be on ashlyn liberal potassium restriction. Nutrition Plan and Recommendations: Recommend more liberal diet as above. Monitor blood chemistries; nutrition intervention prn. Nutrition to follow-up weekly during hospitalization REYNALDO SANCHEZ * Yeimi Elam - 01/02/2016 7:44 AM EDT Urology Inpatient Consult Progress Note ID: Ethel Akins is a 65 y.o. 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 IR yesterday for antegrade nephrostogram showing UPJ stricture, balloon dilated, successful nephroureteral stent placement ?? NU stent and moran both draining urine ?? Improving serum Cr O: Last value Range last 24hrs Temperature Temp: 36.6 ??C (97.9 ??F) Temp: [36.6 ??C (97.9 ??F)-36.8 ??C (98.2 ??F)] Heart Rate Heart Rate: 66 Heart Rate: [66-76] Blood Pressure BP: 119/59 BP: (114-190)/(57-79) Respiratory Rate Resp: 18 Resp: [11-21] SpO2 SpO2: 96 % SpO2: [95 %-99 %] 12/31 0701 - 01/01 0700 In: 2330 [P.O.:1720; I.V.:610] Out: 1575 [Urine:1575] (Moran 35, PCN 3450) Physical Exam: General: NAD, resting comfortably, pleasant, conversant CVS: nontachycardic Pulm: breathing comfortably on RA Abd: soft, nontender, non-distended : Moran draining clear, NU stent draining clear yellow urine Recent Labs 01/01/16 0622 12/31/15 0759 12/30/15 0809 WBC 5.6 6.5 6.0 HGB 13.4* 14.2 14.6 HCT 38.7* 40.8 41.7 PLATELET 243 273 278 Recent Labs 01/01/16 0622 12/31/15 0759 12/30/15 1543 12/30/15 0809 NA 138 139 142 143 K 3.9 4.3 4.2 4.5 CL 101 102 104 106 CO2 22 21* 20* 17* BUN 35* 39* 44* 45* CREATININE 3.64* 4.36* 5.20* 5.46* GLUCOSE 119 126 140 116 CALCIUM 9.1 9.6 9.1 9.7 MAGNESIUM 0.74 0.75 -- 0.73 PHOS 3.5 3.4 -- 4.3 IMAGIN/[address] IMPRESSION 1. Transplant kidney in the left lower quadrant with nephrostomy tube in place and air within the renal collecting system. No renal parenchymal or collecting system calculi detected. 2. Mildly hyperdense 5 mm focus within the gallbladder neck suspicious for gallstone. Consider further characterization with right upper quadrant ultrasound. MICRO: Ucx 12/27: 1-9K GP org, probable contaminant ASSESSMENT: Ethel Akins is a 65 y.o. male s/p DDKT, admitted with rising Cr and obstructive uropathy on transplant renal ultrasound. non contrast CT of pelvis unremarkable. Antegrade nephrostogram showing UPJ stricture which was successfully balloon dilated with subsequent nephroureteral stent placement. ?? Recommendations: -continue moran and NU stent to gravity drainage for now, consider d/c moran when no longer need strict I/O monitoring -continue to trend serum Cr -would keep NU stent in 4 weeks, would then have IR remove NU stent and place PCN to perform repeatantegrade nephrostogram to re-assess the ureter for degree of stricture as well as how well kidney empties ?? YEIMI ELAM MD 01/02/2016 Associated attestation - Scot Garcia Jr., MD - 01/02/2016 9:27 PM EDT I saw and examined this patient with the urology team and agree with history, exam, impression, andplan as noted. Nephroureteral stent placed. Await delayed nephrostogram. * Que Amaro MD - 01/01/2016 12:42 PM EDT Transplant Surgery Inpatient Progress Note Ethel Akins is a 65 y.o. 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 Renal US showed a post-renal obstruction. S/p percutaneous nephrostomy tube placement on 12/29/2015. In review for high creatinine levels which are now on a downgrade trend but stillno passage of urine through the moran. All output through Nephrostomy tube. 24hr events: ?? No acute events. Patient was well rested. ?? Episodes of loose bowel movements 2 times - yesterday at 4 pm and today morning at 6 am. Patienton fiber. Will resume once IR procedure over. ?? No drainage through the moran still but nephrostomy drainage ++ and has changed to yellow color throughout. ?? Minimal pain - 07/15 ?? Patient on fluid restriction of 2L/day. NPO since last night due to IR procedure today. NS at 50cc/hr started since midnight. ?? Ambulating well ?? CT scan yesterday showed no stones but showed gall bladder thickening and sludge present. O: Last value Range last 24hrs Temperature Temp: 36.8 ??C (98.2 ??F) Temp: [36.6 ??C (97.9 ??F)-37 ??C (98.6 ??F)] Heart Rate Heart Rate: 72 Heart Rate: [70-77] Blood Pressure BP: 128/70 BP: (112-140)/(66-76) Respiratory Rate Resp: 20 Resp: [18-20] SpO2 SpO2: 99 % RA SpO2: [96 %-99 %] 12/30 0701 - 12/31 0700 In: 1571 [P.O.:1300; I.V.:271] Out: 3501 [Urine:3500] Labs: Recent Labs 01/01/16 0622 12/31/15 0759 12/30/15 0809 WBC 5.6 6.5 6.0 HGB 13.4* 14.2 14.6 HCT 38.7* 40.8 41.7 PLATELET 243 273 278 Recent Labs 01/01/16 0622 12/31/15 0759 12/30/15 1543 12/30/15 0809 NA 138 139 142 143 K 3.9 4.3 4.2 4.5 CL 101 102 104 106 CO2 22 21* 20* 17* BUN 35* 39* 44* 45* CREATININE 3.64* 4.36* 5.20* 5.46* GLUCOSE 119 126 140 116 CALCIUM 9.1 9.6 9.1 9.7 MAGNESIUM 0.74 0.75 -- 0.73 PHOS 3.5 3.4 -- 4.3 Microbiology: 12/27 UCx: GP organisms Imaging: - 12/27 Renal US: IMPRESSION 1. 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 The urinary bladder at the time ofscanning was virtually empty. 2. Borderline elevated RI measurements throughout the kidney. 12/29 CT scan: Impression: - 1. mildy hyperdense 5mm focus within GB neck possible gallstone. 2. Nephrostomy tube in place in transplanted kidney in LLQ Physical Exam: General: NAD, resting comfortably, pleasant, conversant CVS: RRR Pulm: Normal vesicular breath sounds Abd: soft, nontender, non-distended, incision well healed : Moran in place. Nephrostomy tube also in place and draining well. Ext: no edema Neuro: non-focal, moving all four extremities spontaneously ASSESSMENT: Ethel Akins is a 65 y.o. 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 Renal US concerning for a post-renal obstruction. S/p percutaneous nephrostomy tube on 12/28/2016. Patient to undergo Nephrostogram today with possible stent placement by IR. Plan for today: - 1) IR in the afternoon today to check for obstruction and possible stent placement. 2) Patient is NPO currently. Will resume renal diet post procedure and stop fluids as well. 3) Ambulate and OOB 4) Resume fiber for after procedure. 5) Consult urology regarding re-starting plavix after procedure today. Medications and Management: - NEURO: Pain control with Tylenol PO. CV: No acute issues. Plavix withheld currently. Diltiazem continue. PULM: No acute issues GI: Diet NPO diet (Give Meds). Fluid restriction to 2L /day. Fiber added if required. : Moran in place and Nephrostomy tube in place. ID: Continue Valganciclovir and Bactrim for prophylaxis, Received Zosyn for mary-operative coverage, no evidence of fecal contamination or indication for antibiotic coverage ENDO/IMMUNO: Continue Cellcept 500 BID, Prograf 07/06, Levothyroxine 75, monitor blood sugars closelywith Q4H sticks, if > 180 please call PROPHYLAXIS: SQH Q12H, Protonix DISPO: Floor status, Full Code Consult: Urology Consult on 12/28/2016 Francisco Valencia MD I have seen the patient and reviewed the resident's above history and I agree with the details as written. The assessment and plan were formulated in discussion with me and I agree with them as documented. * Malina Phelan RN - 12/31/2015 4:20 PM EDT Images from the original note were not included. DEVORA Phelan, MSN, RN P: [id number] Service: Transplant 5064 Office of Care Management (OCM) / Orthopedic Nurse(CM)/ Initial Assessment Discussed patient with Provider Team and in multidisciplinary discharge-planning rounds. REASON for HOSPITALIZATION: ?? Ethel Akins is a 65 y.o. male with PMH of DM, HTN, HCV, s/p DDKT 09/06/2015, that presented with RAY and hydronephrosis, s/p PCN placement ?? PMH ?? Past Medical History Past Medical History?? Diagnosis?? Date? Type 2 diabetes mellitus? HTN (hypertension)? ESRD (end stage renal disease)? Microhematuria? Colon polyp? GERD (gastroesophageal reflux disease)? Back pain? CVA (cerebral vascular accident)? Per report but no deficits? PREVIOUS FUNCTIONAL STATUS: Independent with all ADL's CURRENT FUNCTIONAL STATUS:SBA for ADL's ?? SOCIAL / FAMILY SUPPORTS: Lives with spouse Mara who was primary dog daycare provider post kidney [id number] weeks ago. ?? ADVANCE DIRECTIVES: None on file. Full Code. ? HEALTH /PRESCRIPTION COVERAGE: Active Insurance as of 11/12/2015 ? Primary Coverage ? Payor?? Plan?? Insurance Group?? Employer/Plan Group? MEDICARE?? MEDICARE PART A & B? Payor Plan Address?? Payor Plan Phone Number?? Effective From?? Effective To? [address]?? [phone]?? 08/06/2013? [place] [address]? Subscriber Name?? Subscriber Date?? Member ID? ETHEL AKINS?? 1950?? [id number]? Secondary Coverage ? Payor?? Plan?? Insurance Group?? Employer/Plan Group? BLUE CROSS BLUE SHIELD OOS?? BCBS NATIONAL OOS PPO?? [id number]? Payor Plan Address?? Payor Plan Phone Number?? Effective From?? Effective To? [address]?? [phone]?? 11/03/2013? [place] [address]? Subscriber Name?? Subscriber Date?? Member ID? ETHEL AKINS?? 1950?? [id number]? Visit Level Coverage Information ? Payor?? Plan?? Plan Phone?? Plan Street?? Plan City?? Plan State?? Plan Zip? MEDICARE?? MEDICARE PART A & B?? [phone]?? [address] [place] [address]?? [place]?? [place] [21]?? [address]? CURRENT HOME/COMMUNITY SERVICES/EQUIPMENT: DME:[facility] - Not happy with 2/2 co-pay issues and delivery of supplies not used. Home Health Agency: [facility] - Not happy with 2/2 SN came 3 times and never came back or explained why services were no longer needed. Other: [facility] ?? MAKE UP OPERATOR HELPER REFERRAL: Not needed at this time. ? PRIMARY CARE PHYSICIAN: ALBANIA DENIS, DO [address] / [facility] [address] ?? POTENTIAL DISCHARGE NEEDS: Unknown at this time.?? ANTICIPATED BARRIERS TO DISCHARGE: None ?? TRANSPORTATION @ D/C: Mara via car ?? PLAN: CM will continue to monitor progress, follow for continuity of care and assist with dischargeplanning while hospitalized ?? * Andrade Mendez RN - 12/31/2015 2:56 PM EDT [facility] NURSING DATABASE Name: ETHEL AKINS Date of : 1950 AGE 65 y.o. [address]: [address] [place] [id number] (home) [phone] (work) Mobile: Telephone Information: Referring Provider: No ref. provider found REASON FOR VISIT: Laterality Left Is the patient on anticoagulant / anitplatelet therapy ? No Where will study be performed? [facility] Reason for exam and clinical history: history of transplant kidney, now with hydro s/p PCN placement, resolving renal function negative CT for obstructing ureteral stones Exam/Procedure requested: antegrade nephrostogram to characterize ureter, possible antegrade ureteral stent placement Requested Date 12/31/2015 No Known Allergies Pertinent PMH: Patient Active [...] N17.9 ??? UTI (urinary tract infection) N39.0 Pertinent PSH: Past Surgical History Procedure Laterality Date ??? Pro anastomosis, av, any site Left 05/09/2015 AV FISTULA CREATION, DIRECT HEMODIALYSIS, ANY SITE, EG ASHWINI FISTULA UPPER EXTREMITY performed by Que Amaro MD at [facility] OR ??? Pro transplantation of kidney N/A 09/16/2015 @KIDNEY TRANSPLANT, WITHOUT RECIPIENT NEPHRECTOMY performed by Franko Larkin MD at [facility] OR ??? Pro transplant, prep cadaver renal graft N/A 09/16/2015 @PREPARATION CADAVERIC RENAL ALLOGRAFT performed by Franko Larkin MD at [facility] OR ??? N/A 09/16/2015 ORGAN ACQUISITION RENAL, CADAVERIC performed by Franko Larkin MD at [facility] OR Date/Procedure? Med's given/comments 01/08/2015: Tunneled HD catheter? Versed 2.5 mg, Fentanyl 125 mcg. Tolerated well? 07/31/15 Left Fistulogram?Versed 2 mgs iv., Fentanyl 100 mcgs iv.? 12/29/15 L PCN?? Fentanyl 75mcg/ Versed1.5mg?? 01/01/2016 Left nephrostogram, Left NU placement Fentanyl 150 Mcg IV, Versed 2 Mg IV ? Laboratory Results: Lab Results Component Value Date INR 1.1 09/16/2015 Lab Results Component Value Date CREATININE 4.36 (H) 12/31/2015 Lab Results Component Value Date K 4.3 12/31/2015 Lab Results Component Value Date PLATELET 273 12/31/2015 Medications: Prior to Admission medications Medication Sig Start Date End Date Taking? Authorizing Provider fludrocortisone (FLORINEF) 0.1 mg Tablet Take 1 tablet by mouth 2 times daily. 12/13/15 Tal Eagle MD potassium phosphate, monobasic, (K-PHOS) 500 [...] replaced by transplant 09/16/2015. Z94.0 11/08/15 11/07/16 Tal Eagle MD tacrolimus (PROGRAF) 1 mg Capsule [...] LANCETS 30 gauge Misc 04/28/14 PROVIDER, HISTORICAL To procedure room 1 via stretcher. Onto table 1620 (position) Supine. All monitors, O2, safety strap in place. Yes Med's per protocol. Yes * Kyle Gutierrez APRN - 12/31/2015 1:18 PM EDT Interventional Radiology Inpatient- Progress Note Post procedure day 1 s/p placement of PCN into transplant kidney Responsible Attending: Qeu Amaro,* Problem List: Active Hospital Problems Diagnosis ??? RAY (acute kidney injury) Resolved Hospital Problems Diagnosis Date Resolved No resolved problems to display. Active Non-Hospital Problems Diagnosis ??? UTI (urinary tract infection) ??? Kidney transplant infection ??? Renal failure ??? Chronic kidney disease, stage V ??? HCV (hepatitis C virus) ??? ESRD (end stage renal disease) ??? Hepatitis C virus infection ??? Essential hypertension ??? CGN (chronic glomerulonephritis) ??? DM type 2 (diabetes mellitus, type 2) ??? Hypertension ??? DJD (degenerative joint disease) ??? Hematuria Time of patient encounter: 1300 24 Hour Events: Yash feels quite well today, with no pain at PCN site. He is relieved that his creatinine is coming down. Excellent output from PCN. No fevers/chills. Physical Exam: Last Set of Vitals and range of vitals over past 24 hours: Last value Range last 24 hrs Temperature Temp: 36.6 ??C (97.9 ??F) Temp: [36.6 ??C (97.9 ??F)-36.9 ??C (98.4 ??F)] Heart Rate Heart Rate: 76 Heart Rate: [69-78] Blood Pressure BP: 146/72 BP: (134-156)/(70-85) Respiratory Rate Resp: 20 Resp: [16-20] SpO2 SpO2: 97 % SpO2: [96 %-98 %] Intake/Output Summary (Last 24 hours) at 12/31/15 1318 Last data filed at 12/31/15 1230 Gross per 24 hour Intake 1560 ml Output 2905 ml Net -1345 ml Drain Output last 24 hours: 3450cc clear, light yellow urine. Dressing C/D/I Scheduled Meds: ??? guar gum soluble fiber powder 1 scoop Other BID ??? sodium chloride 0.9 % 5 mL Intravenous Q12H ??? sulfamethoxazole-trimethoprim 1 tablet Oral Daily ??? clopidogrel 75 mg Oral Daily ??? DILTiazem 120 mg Oral Daily ??? levothyroxine 75 mcg Oral QAM ??? mycophenolate 500 mg Oral BID ??? tacrolimus 1 mg Oral BID ??? valGANciclovir 450 mg Oral Daily ??? tamsulosin 0.4 mg Oral Nightly ??? magnesium oxide 800 mg Oral TID ??? sodium chloride 0.9 % 5 mL Intravenous BID ??? heparin (porcine) 5,000 Units Subcutaneous 2 times per day ??? pantoprazole 40 mg Oral Daily Or ??? pantoprazole 40 mg Intravenous Daily Continuous Infusions: PRN Meds:.acetaminophen Physical Exam Laboratory (Last 24 Hours): Results for ETHEL AKINS ( ) as of 12/31/2015 13:23 12/31/2015 07:59 WBC 6.5 RBC 4.51 (L) Hemoglobin 14.2 Hematocrit 40.8 MCV 90.5 MCH 31.5 MCHC 34.8 RDWSD 46.1 (H) RDWCV 14.0 Platelets 273 Results for ETHEL AKINS ( ) as of 12/31/2015 13:23 12/29/2015 06:07 12/30/2015 08:09 12/30/2015 15:43 12/31/2015 07:59 BUN 51 (H) 45 (H) 44 (H) 39 (H) Creatinine 6.98 (H) 5.46 (H) 5.20 (H) 4.36 (H) Estimated GFR 8 (L) 11 (L) 11 (L) 14 (L) PHYSICAL EXAM: GEN: NAD CV: RRR No R/G/M PULM: CTA bilaterally ASA 3 MALLAMPATI 1 Assessment: 65 y.o. 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 Renal US showed a post-renal obstruction. Patient underwent percutaneous nephrostomy tube placement on 12/29/2015. PCN working well and creatinine responding accordingly. Plan: Urology and Transplant teams have requested formal antegrade nephrostogram searching for stricture, and possible placement of JJ stent. Procedure to be performed 01/01/16. Patient on Plavix. Consent scanned in. KYLE GUTIERREZ APRN 12/31/2015 * Francisco Valencia MD - 12/31/2015 11:41 AM EDT Transplant Surgery Inpatient Progress Note Ethel Akins is a 65 y.o. 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 Renal US showed a post-renal obstruction. S/p percutaneous nephrostomy tube placement on 12/29/2015. In review for high creatinine levels, and no urine through moran. 24hr events: ?? No acute events. Patient was well rested. ?? Episodes of loose bowel movements 4 times during the day yesterday and once this morning. ?? No drainage through the moran but nephrostomy drainage ++ and has changed to yellow color throughout. ?? Minimal pain - 07/15 ?? Patient on fluid restriction of 2L/day ?? Ambulating well ?? CT scan yesterday showed no stones but showed gall bladder thickening and sludge present. O: Last value Range last 24hrs Temperature Temp: 36.9 ??C (98.4 ??F) Temp: [36.6 ??C (97.9 ??F)-36.9 ??C (98.4 ??F)] Heart Rate Heart Rate: 78 Heart Rate: [69-78] Blood Pressure BP: 156/70 BP: (134-156)/(70-85) Respiratory Rate Resp: 20 Resp: [16-20] SpO2 SpO2: 97 % RA SpO2: [96 %-98 %] 12/29 0701 - 12/30 0700 In: 1680 [P.O.:1680] Out: 3485 [Urine:3485] Labs: Recent Labs 12/31/15 0759 12/30/15 0809 12/29/15 0607 WBC 6.5 6.0 6.9 HGB 14.2 14.6 12.8* HCT 40.8 41.7 37.3* PLATELET 273 278 259 Recent Labs 12/31/15 0759 12/30/15 1543 12/30/15 0809 12/29/15 0607 NA 139 142 143 140 K 4.3 4.2 4.5 4.8 CL 102 104 106 105 CO2 21* 20* 17* 17* BUN 39* 44* 45* 51* CREATININE 4.36* 5.20* 5.46* 6.98* GLUCOSE 126 140 116 121 CALCIUM 9.6 9.1 9.7 8.9 MAGNESIUM 0.75 -- 0.73 0.63* PHOS 3.4 -- 4.3 5.4* Microbiology: 12/27 UCx: GP organisms Imaging: - 12/27 Renal US: IMPRESSION 1. 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 The urinary bladder at the time ofscanning was virtually empty. 2. Borderline elevated RI measurements throughout the kidney. 12/29 CT scan: Impression: - 1. mildy hyperdense 5mm focus within GB neck possible gallstone. 2. Nephrostomy tube in place in transplanted kidney in LLQ Physical Exam: General: NAD, resting comfortably, pleasant, conversant CVS: RRR Pulm: Normal vesicular breath sounds Abd: soft, nontender, non-distended, incision well healed : Moran in place. Nephrostomy tube also in place and draining well. Ext: no edema Neuro: non-focal, moving all four extremities spontaneously ASSESSMENT: Ethel Akins is a 65 y.o. 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 Renal US concerning for a post-renal obstruction. S/p percutaneous nephrostomy tube on 12/28/2016. Patient to undergo Nephrostogram tomorrow with possible stent placement. Plan for today: - 1) IR not possible today. Plan to keep NPO after midnight and Nephrostogram by tomorrow afternoon with possible stent placement. 2) Fiber added if required later after procedure to help with loose stools 3) Ambulate and OOB 4) Consult urology regarding plavix re-starting after procedure today 5) Spoke to md do resident urgent care for possible VNA at discharge. 6) Prograf levels are 6.5 this morning. Medications and Management: - NEURO: Pain control with Tylenol PO. CV: No acute issues. Plavix withheld currently. Diltiazem continue. PULM: No acute issues GI: Diet NPO diet (Give Meds). Fluid restriction to 2L /day. Fiber added if required. : Moran in place and Nephrostomy tube in place. ID: Continue Valganciclovir and Bactrim for prophylaxis, Received Zosyn for mary-operative coverage, no evidence of fecal contamination or indication for antibiotic coverage ENDO/IMMUNO: Continue Cellcept 500 BID, Prograf 07/06, Levothyroxine 75, monitor blood sugars closelywith Q4H sticks, if > 180 please call PROPHYLAXIS: SQH Q12H, Protonix DISPO: Floor status, Full Code Consult: Urology Consult on 12/28/2016 Francisco Valencia MD Associated attestation - Que Amaro MD - 01/02/2016 8:36 AM EDT I have seen the patient and reviewed the resident's above history and I agree with the details as written. The assessment and plan were formulated in discussion with me and I agree with them as documented. * Gilles Arrington - 12/31/2015 7:45 AM EDT Urology Inpatient Consult Progress Note ID: Ethel Akins is a 65 y.o. 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 Underwent PCN placement, improving creatinine, PCN with good uop ?? CT without stone O: Last value Range last 24hrs Temperature Temp: 36.9 ??C (98.4 ??F) Temp: [36.6 ??C (97.9 ??F)-36.9 ??C (98.4 ??F)] Heart Rate Heart Rate: 78 Heart Rate: [69-80] Blood Pressure BP: 156/70 BP: (122-156)/(61-85) Respiratory Rate Resp: 20 Resp: [16-20] SpO2 SpO2: 97 % SpO2: [96 %-98 %] 12/29 0701 - 12/30 0700 In: 1680 [P.O.:1680] Out: 3485 [Urine:3485] (Moran 35, PCN 3450) Physical Exam: General: NAD, resting comfortably, pleasant, conversant CVS: nontachycardic Pulm: breathing comfortably on RA Abd: soft, nontender, non-distended : Moran draining clear, PCN draining clear, side c/d/i Skin/Ext: warm, dry, [id number] Neuro: CN II-XII grossly intact, nonfocal,moving all four extremities spontaneously Recent Labs 12/30/15 0809 12/29/15 0607 12/28/15 0914 WBC 6.0 6.9 7.1 HGB 14.6 12.8* 13.6* HCT 41.7 37.3* 38.9* PLATELET 278 259 279 Recent Labs 12/30/15 1543 12/30/15 0809 12/29/15 0607 12/28/15 0914 NA 142 143 140 138 K 4.2 4.5 4.8 5.2* CL 104 106 105 100 CO2 20* 17* 17* 20* BUN 44* 45* 51* 51* CREATININE 5.20* 5.46* 6.98* 7.29* GLUCOSE 140 116 121 124 CALCIUM 9.1 9.7 8.9 9.3 MAGNESIUM -- 0.73 0.63* 0.67* PHOS -- 4.3 5.4* 6.0* IMAGIN/[address] IMPRESSION 1. Transplant kidney in the left lower quadrant with nephrostomy tube in place and air within the renal collecting system. No renal parenchymal or collecting system calculi detected. 2. Mildly hyperdense 5 mm focus within the gallbladder neck suspicious for gallstone. Consider further characterization with right upper quadrant ultrasound. MICRO: Ucx 12/27: 1-9K GP org, probable contaminant ASSESSMENT: Ethel Akins is a 65 y.o. male s/p DDKT, admitted with rising Cr and obstructive uropathy on transplant renal ultrasound. non contrast CT of pelvis unremarkable. Recommend nephrostogram in IR to evaluate for transplant ureteral stricture. ?? Recommendations: - antegrade nephrostogram in IR to evaluate for stricture; if area appears short/amenable to stent/dilation, OK with Urology for IR to attempt stent/dilation - continue to monitor UOP and electrolytes ?? We will continue to follow. GILLES ARRINGTON MD 12/31/2015 Associated attestation - Scot Garcia Jr., MD - 12/31/2015 11:31 PM EDT I saw and examined this patient with the urology team and agree with history, exam, impression, andplan. Await nephrostogram. * Francisco Valencia MD - 12/30/2015 10:42 AM EDT Transplant Surgery Inpatient Progress Note ID: Ethel Akins is a 65 y.o. 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 Renal US concerning for a post-renal obstruction. S/p percutaneous nephrostomy tube on 12/29/2015. 24hr events: ?? No acute events ?? Episodes of loose bowel movements a few times overnight ?? No drainage through the moran but nephrostomy drainage + alternating between yellow and blood tinged color. Subjective: No major complaints this AM, denies fevers or chills, ambulating, Moran in place, no abdominal pain, nephrostomy tube in place and draining well. O: Last value Range last 24hrs Temperature Temp: 36.8 ??C (98.2 ??F) Temp: [36.2 ??C (97.2 ??F)-36.8 ??C (98.2 ??F)] Heart Rate Heart Rate: 80 Heart Rate: [67-84] Blood Pressure BP: 122/61 BP: (122-188)/(61-89) Respiratory Rate Resp: 18 Resp: [16-24] SpO2 SpO2: 96 % RA SpO2: [90 %-98 %] 12/28 0701 - 12/29 0700 In: 2417 [P.O.:1640; I.V.:777] Out: 5100 [Urine:5100] Physical Exam: General: NAD, resting comfortably, pleasant, conversant CVS: RRR Pulm: CTAB Abd: soft, nontender, non-distended, incision well healed : Moran in place. Nephrostomy tube also in place and draining well. Ext: no edema Neuro: non-focal, moving all four extremities spontaneously Labs: Recent Labs 12/30/15 0809 12/29/15 0607 12/28/15 0914 WBC 6.0 6.9 7.1 HGB 14.6 12.8* 13.6* HCT 41.7 37.3* 38.9* PLATELET 278 259 279 Recent Labs 12/30/15 0809 12/29/15 0607 12/28/15 0914 NA 143 140 138 K 4.5 4.8 5.2* CL 106 105 100 CO2 17* 17* 20* BUN 45* 51* 51* CREATININE 5.46* 6.98* 7.29* GLUCOSE 116 121 124 CALCIUM 9.7 8.9 9.3 MAGNESIUM 0.73 0.63* 0.67* PHOS 4.3 5.4* 6.0* Microbiology: 12/27 UCx: GP organisms New Studies: 12/27 Renal US: IMPRESSION 1. 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 The urinary bladder at the time ofscanning was virtually empty. 2. Borderline elevated RI measurements throughout the kidney. ASSESSMENT: Ethel Akins is a 65 y.o. 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 Renal US concerning for a post-renal obstruction. S/p percutaneous nephrostomy tube on 12/28/2016. Plan for urology consult for obstruction, ambulate, watch out for bowel movements, check moran and nephrostomy tube output. Fluid restriction changed to 2L. Plavix withheld for today but on list for tomorrow. Consider lomotil if diarrhea continues. 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 FEK: NS at 125 cc/hr, replete lytes as needed ID: Continue Valganciclovir and Bactrim for prophylaxis, Received Zosyn for mary-operative coverage, no evidence of fecal contamination or indication for antibiotic coverage HEME: No acute issues, repeat Hb stable ENDO/IMMUNO: Continue Cellcept 500 BID, Prograf 07/06, Levothyroxine 75, monitor blood sugars closelywith Q4H sticks, if > 180 please call PROPHYLAXIS: SQH Q12H, Protonix DISPO: Floor status, Full Code Consult: Urology Consult on 12/28/2016 Francisco Valencia MD Associated attestation - Que Amaro MD - 01/02/2016 8:35 AM EDT I have seen the patient and reviewed the resident's above history and I agree with the details as written. The assessment and plan were formulated in discussion with me and I agree with them as documented. * Nicholas Sim - 12/29/2015 2:25 PM EDT Vascular and Interventional Radiology PRE-SEDATION ASSESSMENT / FOCUSED H&P Procedure: LLQ Transplanted kidney PCN for hydronephrosis and rising Creatinine The patient's history and physical exam have been reviewed and completed. There has been no interval change from that of the pre-operative history and physical exam done within the last 30 days. The planned procedure, its benefits and risks were discussed with the patient. The patient consented to the procedure. I have reviewed with the patient, their prior experience with sedation. The patient has been NPO per protocol. I have reviewed the sedation plan for this patient???s case and concur that Fentanyl and Versed areappropriate choices for sedation and will be provided per the protocoled order set for this case Physical Examination: Chest: clear to auscultation, no wheezes, rales or rhonchi, symmetric air entry Heart: normal rate, regular rhythm, normal S1, S2, no murmurs, rubs, clicks or gallops Abdomen: soft, nontender, nondistended, no masses or organomegaly Vascular: Normal ASA Classification: ASA 3 - Patient with moderate systemic disease with functional limitations Mallampati Classification: II (soft palate, uvula, fauces visible)?? NICHOLAS SIM MD Interventional Radiology 12/29/2015 * Zehra Tyson RN - 12/29/2015 1:04 PM EDT ANGIO/VIR NURSING DATABASE Name: ETHEL AKINS Date of : 1950 AGE 65 y.o. [address]: [address] [place] [id number] (home) [phone] (work) Mobile: Telephone Information: Referring Provider: No ref. provider found PROCEDURE: L PCN No Known Allergies Pertinent PMH: Patient Active [...] N17.9 ??? UTI (urinary tract infection) N39.0 Pertinent PSH: Past Surgical History Procedure Laterality Date ??? Pro anastomosis, av, any site Left 05/09/2015 AV FISTULA CREATION, DIRECT HEMODIALYSIS, ANY SITE, EG ASHWINI FISTULA UPPER EXTREMITY performed by Que Amaro MD at [facility] OR ??? Pro transplantation of kidney N/A 09/16/2015 @KIDNEY TRANSPLANT, WITHOUT RECIPIENT NEPHRECTOMY performed by Franko Larkin MD at [facility] OR ??? Pro transplant, prep cadaver renal graft N/A 09/16/2015 @PREPARATION CADAVERIC RENAL ALLOGRAFT performed by Franko Larkin MD at [facility] OR ??? N/A 09/16/2015 ORGAN ACQUISITION RENAL, CADAVERIC performed by Franko Larkin MD at [facility] OR Date/Procedure? Med's given/comments 01/08/2015: Tunneled HD catheter? Versed 2.5 mg, Fentanyl 125 mcg. Tolerated well? 07/31/15 Left Fistulogram?Versed 2 mgs iv., Fentanyl 100 mcgs iv.?? 12/29/15 L PCN Fentanyl 75mcg/ Versed1.5mg Laboratory Results: Lab Results Component Value Date INR 1.1 09/16/2015 Lab Results Component Value Date CREATININE 6.98 (H) 12/29/2015 Lab Results Component Value Date K 4.8 12/29/2015 Lab Results Component Value Date PLATELET 259 12/29/2015 Medications: Prior to Admission medications Medication Sig Start Date End Date Taking? Authorizing Provider fludrocortisone (FLORINEF) 0.1 mg Tablet Take 1 tablet by mouth 2 times daily. 12/13/15 Tal Eagle MD potassium phosphate, monobasic, (K-PHOS) 500 [...] replaced by transplant 09/16/2015. Z94.0 11/08/15 11/07/16 Tal Eagle MD tacrolimus (PROGRAF) 1 mg Capsule [...] LANCETS 30 gauge Misc 04/28/14 PROVIDER, HISTORICAL ++++ FOR OUTPATIENT SCAN'S: I have informed this patient that they require a river driver to be present and in the building to drive them home after this procedure. In the absence of a river driver, IR will not be able to perform this procedure and will need to reschedule. Pt verbalized understanding of these i nstructions during the pre-procedure education via phone. (initials) * Tal Eagle MD - 12/29/2015 12:58 PM EDT Transplant Surgery Inpatient Progress Note ID: Ethel Akins is a 65 y.o. 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 Renal US concerning for a post-renal obstruction. S/p percutaneous nephrostomy tube 24hr events: ?? No acute events ?? NPO for percutaneous nephrostomy tube Subjective: No major complaints this AM, denies fevers or chills, ambulating, NPO for procedure, Moran in place, no abdominal pain O: Last value Range last 24hrs Temperature Temp: 36.8 ??C (98.2 ??F) Temp: [36.2 ??C (97.2 ??F)-36.9 ??C (98.4 ??F)] Heart Rate Heart Rate: 73 Heart Rate: [65-84] Blood Pressure BP: 147/75 BP: (142-188)/(72-89) Respiratory Rate Resp: 18 Resp: [16-24] SpO2 SpO2: 98 % RA SpO2: [90 %-98 %] 12/27 0701 - 12/28 0700 In: 853 [P.O.:580; I.V.:273] Out: 2625 [Urine:2625] Physical Exam: General: NAD, resting comfortably, pleasant, conversant CVS: RRR Pulm: CTAB Abd: soft, nontender, non-distended, incision well healed : Moran in place draining clear urine Ext: no edema Neuro: non-focal, moving all four extremities spontaneously Labs: Recent Labs 12/29/15 0607 12/28/15 0914 WBC 6.9 7.1 HGB 12.8* 13.6* HCT 37.3* 38.9* PLATELET 259 279 Recent Labs 12/29/15 0607 12/28/15 0914 NA 140 138 K 4.8 5.2* CL 105 100 CO2 17* 20* BUN 51* 51* CREATININE 6.98* 7.29* GLUCOSE 121 124 CALCIUM 8.9 9.3 MAGNESIUM 0.63* 0.67* PHOS 5.4* 6.0* Microbiology: 12/27 UCx: GP organisms New Studies: 12/27 Renal US: IMPRESSION 1. 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 The urinary bladder at the time ofscanning was virtually empty. 2. Borderline elevated RI measurements throughout the kidney. ASSESSMENT: Ethel Akins is a 65 y.o. 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 Renal US concerning for a post-renal obstruction. S/p percutaneous nephrostomy tube Plan for percutaneous nephrostomy in IR today. 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: No acute issues, continue Plavix 75, Diltiazem 120, PULM: No acute issues GI: Diet Renal diet 2 GM NA : Moran in place FEK: NS at 125 cc/hr, replete lytes as needed ID: Continue Valganciclovir and Bactrim for prophylaxis, Received Zosyn for mary-operative coverage, no evidence of fecal contamination or indication for antibiotic coverage HEME: No acute issues, repeat Hb stable ENDO/IMMUNO: Continue Cellcept 500 BID, Prograf 07/06, Levothyroxine 75, monitor blood sugars closelywith Q4H sticks, if > 180 please call PROPHYLAXIS: SQH Q12H, Protonix DISPO: Floor status, Full Code DIONISIO ECHOLS MD I reviewed all of the above findings and assessment of Dr. Echols, examined the patient and formulated the recommendations which accurately reflect mine. * Keyana Hedrick, RN - 12/28/2015 8:17 PM EDT Patient arrived to [facility] from clinic/ultrasound at 1630. Patient alert, oriented, ambulatory. VSS.Patient in no pain, appears comfortable. Patient oriented to room. Patient met with Dr. Saravia, and reason for placing moran catheter was explained. Urethral catheter placed at 1730. Patient reported what medications he had already taken today. Medications were given as ordered before the shift change. Patient ate dinner. Explained to patient that he was on 1500 ml fluid restriction and allowed him 750 ml intake until midnight. Vascular Access team paged for start of IV. Continued care endorsed to incoming RN. * Herlinda Bell RD - 12/28/2015 4:04 PM EDT [facility] Post Transplant Nutrition Follow Up Date: 12/28/2015 Patient: Ethel Akins Transplant Date: 09/16/15 [place] [place] [employer] organ UNOS diagnosis: Transplant: Mr. Ethel Akins is a White Not nor 65 y.o. male who is Status Post Kidney transplantation on 09/16/15. Patient was seen by Transplant services on 12/28/2015 for followup. Patient was admitted directly from the clinic due to a dramatic increase in his serum BUN/Creat. Wt Readings from Last 3 Encounters: 12/28/15 98.4 kg (217 lb) 12/10/15 93.9 kg (207 lb) 12/07/15 99 kg (218 lb 3.2 oz) Today's vital signs: BP 162/77 (BP Location (NBP): Right arm, Patient Position: Lying) Pulse 79 Temp 36.8 ??C (98.2 ??F)(Oral) Resp 20 SpO2 98% Estimated body mass index is 31.14 kg/(m^2) as calculated from the following: Height as of an earlier encounter on 12/28/15: 177.8 cm (5' 10). Weight as of an earlier encounter on 12/28/15: 98.4 kg (217 lb). Weight pre-Txp: 100.7 Kg (222 lbs) BMI: 31.9 Lab Results Component Value Date HGB 13.6 (L) 12/28/2015 HCT 38.9 (L) 12/28/2015 NA 138 12/28/2015 K 5.2 (H) 12/28/2015 BUN 51 (H) 12/28/2015 CREATININE 7.29 (H) 12/28/2015 GLUCOSE 124 12/28/2015 CALCIUM 9.3 12/28/2015 MAGNESIUM 0.67 (L) 12/28/2015 PHOS 6.0 (H) 12/28/2015 ALBUMIN 4.1 12/28/2015 Cholesterol (in eD-H the component name CHLPL=Cholesterol) Lab Results Component Value Date CHLPL 172 12/28/2015 Assessment: This underwriter mortgage loan reviewed patient's blood chemistries at clinic visit; patient admitted. This underwriter mortgage loan suggests Renal, JAMESON diet rx since serum K+ and Phos also elevated, suggesting acute rejection. Possiblecauses are to be evaluated. Plan: Renal, JAMESON diet. Follow up with patient on Thursday with nutrition intervention prn. documented in this encounter H&P Notes * Tal Eagle MD - 12/28/2015 1:05 PM EDT [facility] Department of Transplant Surgery Inpatient Admission Note CC: Rising creatinine HPI: Mr. Akins is a 65 PMH significant forDMII HTN and HCV now s/p DDKT on 09/16/2015 with post-operative course significant for recurrent UTIs requiring readmission on 11/11 and 12/06. He has done well since his last admission and has been maintaining PO intake of 3 L. He continues to void and double void to avoid over distension of his bladder. He presented today to transplant clinic for his follow up. His laboratory work today is concerning for a Creatinine of 7.29. He denies any fevers, chills, nausea vomiting. No pyuria, hematuria or dysuria. PM/SH: Past Medical History Diagnosis Date ??? [...] EXTREMITY performed by Que Amaro MD at [facility] OR ??? Pro transplantation of kidney N/A 09/16/2015 @KIDNEY TRANSPLANT, WITHOUT RECIPIENT NEPHRECTOMY performed by Franko Larkin MD at [facility] OR ??? Pro transplant, prep cadaver renal graft N/A 09/16/2015 @PREPARATION CADAVERIC RENAL ALLOGRAFT performed by Franko Larkin MD at [facility] OR ??? N/A 09/16/2015 ORGAN ACQUISITION RENAL, CADAVERIC performed by Franko Larkin MD at [facility] OR ALL: No Known Allergies MED: No current facility-administered medications on file prior to encounter. Current Outpatient Prescriptions on File Prior to Encounter Medication Sig Dispense Refill ??? fludrocortisone (FLORINEF) [...] on file Social History Narrative Family history: Non contributory ROS: As stated above, otherwise remainder of 10-point system review is negative Physical Exam: Temp: -- Heart Rate: [78] Resp: -- BP: (144)/(86) SpO2: [98 %] Gen: NAD, pleasant Neuro: a/ox3 CV: RRR Pulm: CTAB GI: soft abdomen, well healed left Horowitz incision MSK: no cce Recent Results (from the [...] Negative mcL Appearance UA Clear Clear Spec [place] UA 1.009 1.002 - 1.030 Color UA Straw Yellow RBC UA <1 0 - 3 /HPF WBC UA 6 (H) 0 - 3 /HPF Bacteria UA Rare (A) None /HPF Squam Epith UA <1 <=4 /HPF Culture Reflexed Yes Protein/Creatinine Ratio, urine Result Value Ref Range U Creatinine 75 mg/dL U Protein Ran 9 0 - 12 mg/dL Prot/Cre Ratio 0.1 ratio Cholesterol, total Result Value Ref Range Chol, [...] Gran Abs 0.02 0.00 - 0.05 x10(3)/mcL Assessment and Plan: 65 M PMH significant for DMII HTN and HCV now s/p DDKT on 09/16/2015 now with arising creatinine without any clinical symptoms. His presentation is concerning for a tubulointeristiatl process, although rejection, leak, post-renal obstruction should all be evaluated. Neuro: APAP CV: contiue home plavix, diltiazewm 120 daily Pulm: IS OOB GI/FEN: renal diet, gentle hydration 75 cc/hr of NS, PO fluid estrction to 1500ml/day Renal: prograf 07/06, cellcept 750 BID, renal ultrasound today Heme/ID: hold bactrim prophylaxis at this time, continue valcyte, follow up BK titers Endo: continue home synthroid 75 mcg qday : strict I/O, continue flomax Proph: protonix Dispo: floor Marcus Saravia MD 12/28/2015 I reviewed all of the above findings and assessment of Dr. Saravia, examined the patient and formulated the recommendations which accurately reflect mine. documented in this encounter Miscellaneous Notes * Plan of Care - Magaly Rodrigues RN - 01/03/2016 3:21 AM EDT Problem: General Plan of Care Goal: Plan of Care Review Outcome: Ongoing (Interventions Implemented as Appropriate) 01/01/16 0405 01/02/16 1814 01/02/16 2100 Plan of Care Review Plan of Care Outcome Status ongoing (interventions implemented as appropriate) -- -- Progress -- improving -- Coping/Psychosocial Response Interventions Plan of Care Reviewed with -- -- patient OUTCOME EVALUATION NOTE: OUTCOME SUMMARY: Ambulating independently. Nephrostomy with good output. Also voiding. Denies pain. PLAN MOVING FORWARD: Discharge soon with nephrostomy. INDIVIDUALIZED FALL PREVENTION INTERVENTIONS: Patient-specific fall risk factors per assessment: [current deficits]: none Assistance [level of assistance required for transfers and ambulation]: Independent. Supervision [direct monitoring required during toileting and ADLs]: Independent. Surveillance [continuous indirect monitoring]: Call robles. Purposeful rounding. Patient-specific fall prevention interventions for sensory deficits provided, if applicable: [X] No CPG GOAL OUTCOME EVALUATION: Goal: Individualization and Mutuality Outcome: Ongoing (Interventions Implemented as Appropriate) 12/28/15 2200 12/29/15 0358 12/30/15 0457 Individualization Patient Specific Preferences -- Call me Yash -- Patient Specific Goals -- -- -- Patient Specific Interventions -- -- Monitor nephrostomy tube for output Mutuality/Individual Preferences What anxieties, fears or concerns do you have about your health or care? none. happy I stayed out of the hospital for a few weeks -- -- What questions do you have about your health or care? none -- -- What information would help us give you more personalized care? none -- -- 01/01/16404 Individualization Patient Specific Preferences -- Patient Specific Goals provide encouragement to pt to try and learn his meds/s/s of rejection Patient Specific Interventions -- Mutuality/Individual Preferences What anxieties, fears or concerns do you have about your health or care? -- What questions do you have about your health or care? -- What information would help us give you more personalized care? -- Goal: Fall Prevention-Safe Patient Handling Outcome: Ongoing (Interventions Implemented as Appropriate) 01/01/16 0801/02/16 0901/02/16 1200 Safety Interventions Safety Precautions/Fall Reduction -- -- -- Musculoskeletal Interventions Activity/Level of Assistance -- -- -- Positioning -- -- -- Muscle Strengthening activity/mobility promoted -- -- Self-Care Promotion -- independence encouraged while providing assistance -- Stephens Fall Risk History of Falling -- -- -- Secondary Diagnosis -- -- -- Ambulatory Aids -- -- -- Intravenous Therapy/Heparin/Saline Lock -- -- -- Gait/Transferring -- -- -- Mental Status -- -- -- Score -- -- -- Activity and Safety Assistive Device -- -- None OTHER Stephens Fall Risk -- -- -- 01/02/16209901/02/16 235 Safety Interventions Safety Precautions/Fall Reduction room near unit station;nonskid shoes/slippers when out of bed;lighting adjusted for task/safety -- Musculoskeletal Interventions Activity/Level of Assistance independently -- Positioning -- independent Muscle Strengthening -- -- Self-Care Promotion -- -- Setphens Fall Risk History of Falling 0 -- Secondary Diagnosis 15 -- Ambulatory Aids 0 -- Intravenous Therapy/Heparin/Saline Lock 20 -- Gait/Transferring 0 -- Mental Status 0 -- Score 35 -- Activity and Safety Assistive Device -- -- OTHER Stephens Fall Risk Med -- Goal: Infection Control Outcome: Ongoing (Interventions Implemented as Appropriate) 01/02/1690801/02/16 2100 Safety Interventions Isolation Precautions -- other (see comments) (immunosuppressed) Infection Prevention -- rest/sleep promoted Coping/Psychosocial Response Interventions Counseling reassurance provided -- Goal: Discharge Needs Assessment Outcome: Ongoing (Interventions Implemented as Appropriate) 01/01/16404 Discharge Needs Assessment Concerns to be Addressed adjustment to diagnosis/illness concerns Readmission Within the Last 30 Days clinical decline Community Agency Name(s) [facility] Equipment Needed After Discharge none Current Discharge Risk chronically ill Self-Care Equipment Currently Used at Home none Living Environment Transportation Available family or friend will provide Current Health Outpatient/Agency/Support Group Needs homecare agency (specify level of care) Anticipated Changes Related to Illness none * Plan of Care - Ethel Benitez RN - 01/02/2016 6:24 PM EDT Problem: General Plan of Care Goal: Plan of Care Review Outcome: Ongoing (Interventions Implemented as Appropriate) 01/01/16 0405 01/02/16 0909 01/02/16 1814 Plan of Care Review Plan of Care Outcome Status ongoing (interventions implemented as appropriate) -- -- Progress -- -- improving Coping/Psychosocial Response Interventions Plan of Care Reviewed with -- patient -- OUTCOME EVALUATION NOTE: OUTCOME SUMMARY: Pt greeted and identified. He remains pleasant and cooperative.n Denies c/o pain. Please see [facility] for assessments. Moran d/c'ed per MD order early this afternoon. Voided small amt clear marry urine w/o voiced c/o. Bladder scan minimal. Urine still passing via nephrostomy tube. Tols diet well. Fluid restriction d/c'ed. PLAN MOVING FORWARD: Moran d/c'ed. Will monitor output via voiding vs nephrostomy tube. Anticipatesd/c to home tomorrow. Cont as ordered. INDIVIDUALIZED FALL PREVENTION INTERVENTIONS: Patient-specific fall risk factors per assessment: [current deficits]: Low risk Assistance [level of assistance required for transfers and ambulation]: independent Supervision [direct monitoring required during toileting and ADLs]: Independent and reliable Surveillance [continuous indirect monitoring]: Hourly rounding, masimo, skin surveillance, call robles with in reach Patient-specific fall prevention interventions for sensory deficits provided, if applicable: [X] No CPG GOAL OUTCOME EVALUATION: * Plan of Care - Cami Leonardo RN - 01/02/2016 6:47 AM EDT Problem: General Plan of Care Goal: Plan of Care Review Outcome: Ongoing (Interventions Implemented as Appropriate) 01/01/1640401/01/162056 Plan of Care Review Plan of Care Outcome Status ongoing (interventions implemented as appropriate) -- Progress no change -- Coping/Psychosocial Response Interventions Plan of Care Reviewed with -- patient OUTCOME EVALUATION NOTE: OUTCOME SUMMARY: Patient had a good night. Reported a small amount of pain which was helped with tylenol. Patient started producing more urine from the moran catheter. Total urine out put for nephrostomy was 400 mL overnight. Total urine output for the moran catheter was 600 mL overnight. Patient has not had a loose bowel movement yet. Received a 250 mL NS bolus overnight and tolerated well. PLAN MOVING FORWARD: Continue to monitor urine output. INDIVIDUALIZED FALL PREVENTION INTERVENTIONS: Patient-specific fall risk factors per assessment: [current deficits]: independent Assistance [level of assistance required for transfers and ambulation]: independent Supervision [direct monitoring required during toileting and ADLs]: independent Surveillance [continuous indirect monitoring]: Msaimo, hourly rounding Patient-specific fall prevention interventions for sensory deficits provided, if applicable: [X] N/A CPG GOAL OUTCOME EVALUATION: Goal: Individualization and Mutuality Outcome: Ongoing (Interventions Implemented as Appropriate) 12/28/15219912/29/1535712/30/15456 Individualization Patient Specific Preferences -- Call me Yash -- Patient Specific Goals -- -- -- Patient Specific Interventions -- -- Monitor nephrostomy tube for output Mutuality/Individual Preferences What anxieties, fears or concerns do you have about your health or care? none. happy I stayed out of the hospital for a few weeks -- -- What questions do you have about your health or care? none -- -- What information would help us give you more personalized care? none -- -- 01/01/16404 Individualization Patient Specific Preferences -- Patient Specific Goals provide encouragement to pt to try and learn his meds/s/s of rejection Patient Specific Interventions -- Mutuality/Individual Preferences What anxieties, fears or concerns do you have about your health or care? -- What questions do you have about your health or care? -- What information would help us give you more personalized care? -- Goal: Fall Prevention-Safe Patient Handling Outcome: Ongoing (Interventions Implemented as Appropriate) 01/01/16 0800 01/01/16 1016 01/01/162056 Safety Interventions Safety Precautions/Fall Reduction -- -- environmental modification Musculoskeletal Interventions Activity/Level of Assistance -- up in posey;ambulated;independently -- Positioning -- -- -- Muscle Strengthening activity/mobility promoted -- -- Self-Care Promotion independence encouraged while providing assistance;assistance provided to decrease frustration -- -- Stephens Fall Risk History of Falling -- -- 0 Secondary Diagnosis -- -- 15 Ambulatory Aids -- -- 0 Intravenous Therapy/Heparin/Saline Lock -- -- 20 Gait/Transferring -- -- 0 Mental Status -- -- 0 Score -- -- 35 Activity and Safety Assistive Device -- None -- OTHER Stephens Fall Risk -- -- Med 01/01/16 2330 Safety Interventions Safety Precautions/Fall Reduction -- Musculoskeletal Interventions Activity/Level of Assistance -- Positioning independent Muscle Strengthening -- Self-Care Promotion -- Stephens Fall Risk History of Falling -- Secondary Diagnosis -- Ambulatory Aids -- Intravenous Therapy/Heparin/Saline Lock -- Gait/Transferring -- Mental Status -- Score -- Activity and Safety Assistive Device -- OTHER Stephens Fall Risk -- Goal: Infection Control Outcome: Ongoing (Interventions Implemented as Appropriate) 01/01/162056 Safety Interventions Isolation Precautions other (see comments) (immunosuppressed) Infection Prevention promote handwashing;rest/sleep promoted Coping/Psychosocial Response Interventions Counseling reassurance provided;relaxation techniques promoted Goal: Discharge Needs Assessment Outcome: Ongoing (Interventions Implemented as Appropriate) 01/01/16 0405 Discharge Needs Assessment Concerns to be Addressed adjustment to diagnosis/illness concerns Readmission Within the Last 30 Days clinical decline Community Agency Name(s) [facility] Equipment Needed After Discharge none Current Discharge Risk chronically ill Self-Care Equipment Currently Used at Home none Living Environment Transportation Available family or friend will provide Current Health Outpatient/Agency/Support Group Needs homecare agency (specify level of care) Anticipated Changes Related to Illness none Problem: Kidney Transplant Recipient (Adult) Intervention: Oral Nutrition Promotion 12/31/15 0711 Nutrition Interventions Oral Nutrition Promotion food preferences provided Intervention: Fluid Management 01/01/16 0800 Nutrition Interventions Fluid Management fluids restricted (PO restricted to 2000cc) Intervention: Metabolic/Electrolyte Imbalance Management 12/30/15 0725 Nutrition Interventions Metabolic/Electrolyte Imbalance Management diet adjusted Intervention: Skin/Mucous Membrane Protection 01/01/16 0800 Skin Interventions Skin/Mucous Membrane Protection age appropriate skin cleansing provided Goal: Signs and symptoms of listed potential problems will be absent or manageable (reference (Kidney Transplant Recipient (Adult)) CPG) Outcome: Ongoing (Interventions Implemented as Appropriate) 12/31/15 0408 01/01/16 0405 Kidney Transplant Recipient Problems Assessed (Kidney Transplant) -- situational response Problems Present (Kidney Transplant) situational response -- * Plan of Care - Ethel Benitez RN - 01/01/2016 12:58 PM EDT Problem: General Plan of Care Goal: Plan of Care Review Outcome: Ongoing (Interventions Implemented as Appropriate) 01/01/16 0405 01/01/16 08 Plan of Care Review Plan of Care Outcome Status ongoing (interventions implemented as appropriate) -- Progress no change -- Coping/Psychosocial Response Interventions Plan of Care Reviewed with -- patient OUTCOME EVALUATION NOTE: OUTCOME SUMMARY: Pt greeted and identified. He is pleasant and cooperative. Please see [facility] for assessments. Is aware of planned IR procedure scheduled for this afternoon and wishes to proceed.. Denies c/o pain. Urine output coming from urostomy tube, not moran. MD's aware. Has been NPO x meds at present time. IV maint fluid at 50cc/hr as ordered. PLAN MOVING FORWARD: Awaiting results of IR intervention scheduled for this afternoon. Cont to support, cont to enc amb/OOB activity, cont to monitor I&O, anticipate resumption of diet post test.Maintain po fluid restriction INDIVIDUALIZED FALL PREVENTION INTERVENTIONS: Patient-specific fall risk factors per assessment: [current deficits]: low risk at present time Assistance [level of assistance required for transfers and ambulation]: independent Supervision [direct monitoring required during toileting and ADLs]: independent Surveillance [continuous indirect monitoring]: Hourly rounding, masimo, skin surveillance, call robles with in reach, Patient-specific fall prevention interventions for sensory deficits provided, if applicable: [X] No CPG GOAL OUTCOME EVALUATION: Goal: Individualization and Mutuality Outcome: Ongoing (Interventions Implemented as Appropriate) 12/28/15219912/29/15 0358 12/30/15 0457 Individualization Patient Specific Preferences -- Call me Yash -- Patient Specific Goals -- -- -- Patient Specific Interventions -- -- Monitor nephrostomy tube for output Mutuality/Individual Preferences What anxieties, fears or concerns do you have about your health or care? none. happy I stayed out of the hospital for a few weeks -- -- What questions do you have about your health or care? none -- -- What information would help us give you more personalized care? none -- -- 01/01/16 0405 Individualization Patient Specific Preferences -- Patient Specific Goals provide encouragement to pt to try and learn his meds/s/s of rejection Patient Specific Interventions -- Mutuality/Individual Preferences What anxieties, fears or concerns do you have about your health or care? -- What questions do you have about your health or care? -- What information would help us give you more personalized care? -- * Plan of Care - Malina Edmonds RN - 01/01/2016 4:10 AM EDT Problem: General Plan of Care Goal: Plan of Care Review Outcome: Ongoing (Interventions Implemented as Appropriate) 01/01/16404 Plan of Care Review Plan of Care Outcome Status ongoing (interventions implemented as appropriate) Progress no change Coping/Psychosocial Response Interventions Plan of Care Reviewed with patient OUTCOME EVALUATION NOTE: OUTCOME SUMMARY: Yash had an uneventful night. Pt aware he is going to IR for contrast study and hasbeen NPO since midnight. NS at 50cc/hr started at 0000. Tylenol given once for 1/10 pain. Still continues to have most urine output from neph tube. PLAN MOVING FORWARD: IR for contrast study INDIVIDUALIZED FALL PREVENTION INTERVENTIONS: Patient-specific fall risk factors per assessment: [current deficits]: none Assistance [level of assistance required for transfers and ambulation]: none Supervision [direct monitoring required during toileting and ADLs]: none Surveillance [continuous indirect monitoring]: Purposeful rounding, call robles in reach Patient-specific fall prevention interventions for sensory deficits provided, if applicable: n/a CPG GOAL OUTCOME EVALUATION: Goal: Individualization and Mutuality Outcome: Ongoing (Interventions Implemented as Appropriate) 01/01/16 040 Individualization Patient Specific Goals provide encouragement to pt to try and learn his meds/s/s of rejection Goal: Fall Prevention-Safe Patient Handling Outcome: Ongoing (Interventions Implemented as Appropriate) 12/31/15 2100 01/01/16 0351 01/01/16 0405 Safety Interventions Safety Precautions/Fall Reduction environmental modification;fall reduction program maintained;lighting adjusted for task/safety;low bed;nonskid shoes/slippers when out of bed -- -- Musculoskeletal Interventions Activity/Level of Assistance up ad chiquita;up in room;ambulated;independently -- -- Positioning -- independent -- Muscle Strengthening -- -- mobility in bed promoted;personal routines for BADL/IADL promoted Self-Care Promotion -- -- independence encouraged while providing assistance;personal routines for BADL/IADL promoted;personal/BADL objects within reach Stephens Fall Risk History of Falling 0 -- -- Secondary Diagnosis 15 -- -- Ambulatory Aids 0 -- -- Intravenous Therapy/Heparin/Saline Lock 20 -- -- Gait/Transferring 0 -- -- Mental Status 0 -- -- Score 35 -- -- Activity and Safety Assistive Device None -- -- OTHER Stephens Fall Risk Med -- -- Goal: Infection Control Outcome: Ongoing (Interventions Implemented as Appropriate) 12/31/15 2100 Safety Interventions Isolation Precautions standard precautions maintained Infection Prevention bronchial hygiene promoted;environmental surveillance;hydration promoted;nutrition promoted;promote handwashing;rest/sleep promoted Coping/Psychosocial Response Interventions Counseling emotional support provided;reassurance provided Goal: Discharge Needs Assessment Outcome: Ongoing (Interventions Implemented as Appropriate) 01/01/16404 Discharge Needs Assessment Concerns to be Addressed adjustment to diagnosis/illness concerns Readmission Within the Last 30 Days clinical decline Community Agency Name(s) [facility] Equipment Needed After Discharge none Current Discharge Risk chronically ill Self-Care Equipment Currently Used at Home none Living Environment Transportation Available family or friend will provide Current Health Outpatient/Agency/Support Group Needs homecare agency (specify level of care) Anticipated Changes Related to Illness none Problem: Kidney Transplant Recipient (Adult) Goal: Signs and symptoms of listed potential problems will be absent or manageable (reference (Kidney Transplant Recipient (Adult)) CPG) Outcome: Ongoing (Interventions Implemented as Appropriate) 01/01/16404 Kidney Transplant Recipient Problems Assessed (Kidney Transplant) situational response * Plan of Care - Bernarda Pedroza RN - 12/31/2015 2:38 PM EDT Problem: General Plan of Care Goal: Plan of Care Review Outcome: Ongoing (Interventions Implemented as Appropriate) 12/31/15 0408 12/31/15 0711 Plan of Care Review Plan of Care Outcome Status ongoing (interventions implemented as appropriate) -- Progress improving -- Coping/Psychosocial Response Interventions Plan of Care Reviewed with -- patient OUTCOME EVALUATION NOTE: OUTCOME SUMMARY: Yash has intermittent discomfort at left nephro site, tylenol working well, no UO from moran but adequate amounts from nephro tube. Pt NPO this AM for IR procedure, IR BILINGUAL HR GENERALIST up to tell pt that this procedure will happen tomorrow afternoon and he will be NPO at midnight (around 1330), pt back on renal diet for remainder of day with fluid restriction. Pt ambulating regularly, back and forth between bedand chair PLAN MOVING FORWARD: Pain control, ambulation, NPO at midnight INDIVIDUALIZED FALL PREVENTION INTERVENTIONS: Patient-specific fall risk factors per assessment: [current deficits]: tubes Assistance [level of assistance required for transfers and ambulation]: independent Supervision [direct monitoring required during toileting and ADLs]: independent Surveillance [continuous indirect monitoring]: Masimo, purposeful rounding, call robles in reach Patient-specific fall prevention interventions for sensory deficits provided, if applicable: Yes glasses CPG GOAL OUTCOME EVALUATION: Goal: Fall Prevention-Safe Patient Handling Outcome: Ongoing (Interventions Implemented as Appropriate) 12/30/15 1214 12/31/15 0711 12/31/15 1252 Safety Interventions Safety Precautions/Fall Reduction -- low bed;nonskid shoes/slippers when out of bed -- Stephens Fall Risk History of Falling -- 0 -- Secondary Diagnosis -- 15 -- Ambulatory Aids -- 0 -- Intravenous Therapy/Heparin/Saline Lock -- 20 -- Gait/Transferring -- 0 -- Mental Status -- 0 -- Score -- 35 -- Activity and Safety Assistive Device None -- -- OTHER Stephens Fall Risk -- Med -- Musculoskeletal Interventions Activity/Level of Assistance -- -- up in posey;ambulated;independently Positioning -- independent -- Goal: Infection Control Outcome: Ongoing (Interventions Implemented as Appropriate) 12/31/15 0711 Safety Interventions Isolation Precautions standard precautions maintained Infection Prevention rest/sleep promoted;promote handwashing;nutrition promoted;hydration promoted Coping/Psychosocial Response Interventions Counseling goal setting facilitated;emotional support provided Goal: Discharge Needs Assessment Outcome: Ongoing (Interventions Implemented as Appropriate) 12/29/15 0358 12/30/15 0457 Discharge Needs Assessment Concerns to be Addressed -- adjustment to diagnosis/illness concerns Readmission Within the Last 30 Days clinical decline -- Community Agency Name(s) -- [facility]NA Equipment Needed After Discharge none -- Self-Care Equipment Currently Used at Home none -- Living Environment Transportation Available car;family or friend will provide -- Current Health Outpatient/Agency/Support Group Needs -- homecare agency (specify level of care) Problem: Kidney Transplant Recipient (Adult) Goal: Signs and symptoms of listed potential problems will be absent or manageable (reference (Kidney Transplant Recipient (Adult)) CPG) Outcome: Ongoing (Interventions Implemented as Appropriate) 12/31/15 0408 Kidney Transplant Recipient Problems Assessed (Kidney Transplant) all Problems Present (Kidney Transplant) situational response * Plan of Care - Yudelka Hinojosa RN - 12/31/2015 4:13 AM EDT Problem: General Plan of Care Goal: Plan of Care Review Outcome: Ongoing (Interventions Implemented as Appropriate) 12/31/15 0408 Plan of Care Review Plan of Care Outcome Status ongoing (interventions implemented as appropriate) Progress improving Coping/Psychosocial Response Interventions Plan of Care Reviewed with patient OUTCOME EVALUATION NOTE: OUTCOME SUMMARY: Yash has been sleeping overnight. His nephrostomy tube is putting out large amounts of urine, it remains yellow in coloration. His moran is has had no output overnight. He received PO tylenol once otherwise no complaints of pain overnight. PLAN MOVING FORWARD: Monitor nephrostomy output, Maintain 2000 ml fluid restriction INDIVIDUALIZED FALL PREVENTION INTERVENTIONS: Patient-specific fall risk factors per assessment: [current deficits]: drains Assistance [level of assistance required for transfers and ambulation]: Independent Supervision [direct monitoring required during toileting and ADLs]: Independent Surveillance [continuous indirect monitoring]: Purposeful rounding, call robles within reach Patient-specific fall prevention interventions for sensory deficits provided, if applicable: No CPG GOAL OUTCOME EVALUATION: Goal: Individualization and Mutuality Outcome: Ongoing (Interventions Implemented as Appropriate) 12/30/15456 Individualization Patient Specific Goals Rest Patient Specific Interventions Monitor nephrostomy tube for output Goal: Fall Prevention-Safe Patient Handling Outcome: Ongoing (Interventions Implemented as Appropriate) 12/30/15 220 Safety Interventions Safety Precautions/Fall Reduction fall reduction program maintained;lighting adjusted for task/safety;nonskid shoes/slippers when out of bed;room near unit station Musculoskeletal Interventions Positioning independent Goal: Infection Control Outcome: Ongoing (Interventions Implemented as Appropriate) 12/30/15 0712/30/15219912/30/15 224 Safety Interventions Isolation Precautions -- standard precautions maintained -- Infection Prevention rest/sleep promoted;promote handwashing;nutrition promoted;hydration promoted -- -- Coping/Psychosocial Response Interventions Counseling -- -- emotional support provided Goal: Discharge Needs Assessment Outcome: Ongoing (Interventions Implemented as Appropriate) 12/29/15 0358 12/30/15456 Discharge Needs Assessment Concerns to be Addressed -- adjustment to diagnosis/illness concerns Living Environment Transportation Available car;family or friend will provide -- Current Health Outpatient/Agency/Support Group Needs -- homecare agency (specify level of care) Problem: Kidney Transplant Recipient (Adult) Goal: Signs and symptoms of listed potential problems will be absent or manageable (reference (Kidney Transplant Recipient (Adult)) CPG) Outcome: Ongoing (Interventions Implemented as Appropriate) 12/31/15 0408 Kidney Transplant Recipient Problems Assessed (Kidney Transplant) all Problems Present (Kidney Transplant) situational response * Plan of Care - Bernarda Pedroza RN - 12/30/2015 2:18 PM EDT Problem: General Plan of Care Goal: Plan of Care Review Outcome: Ongoing (Interventions Implemented as Appropriate) 12/30/157 12/30/15 0725 Plan of Care Review Plan of Care Outcome Status ongoing (interventions implemented as appropriate) -- Progress improving -- Coping/Psychosocial Response Interventions Plan of Care Reviewed with -- patient OUTCOME EVALUATION NOTE: OUTCOME SUMMARY: Yash states little pain at nephrotube site relieved by PRN tylenol. Urology consulted and up to speak with pt, he went for CT scan this afternoon, Moran draining scant urine but nephro tube draining alot. Pt's here, he is ambulating frequently. Fluid restriction now 2L. Creatinine is improving PLAN MOVING FORWARD: Ambulation, pain control INDIVIDUALIZED FALL PREVENTION INTERVENTIONS: Patient-specific fall risk factors per assessment: [current deficits]: Multiple tubes Assistance [level of assistance required for transfers and ambulation]: independent Supervision [direct monitoring required during toileting and ADLs]: independent Surveillance [continuous indirect monitoring]: Masimo, purposeful rounding, call robles in reach Patient-specific fall prevention interventions for sensory deficits provided, if applicable: Yes lighting adjusted, glasses CPG GOAL OUTCOME EVALUATION: Goal: Fall Prevention-Safe Patient Handling Outcome: Ongoing (Interventions Implemented as Appropriate) 12/30/15 0725 12/30/15 1214 Safety Interventions Safety Precautions/Fall Reduction low bed;nonskid shoes/slippers when out of bed -- Stephens Fall Risk History of Falling 0 -- Secondary Diagnosis 15 -- Ambulatory Aids 0 -- Intravenous Therapy/Heparin/Saline Lock 20 -- Gait/Transferring 0 -- Mental Status 0 -- Score 35 -- Activity and Safety Assistive Device -- None OTHER Stephens Fall Risk Med -- Musculoskeletal Interventions Activity/Level of Assistance -- independently Positioning independent -- Goal: Infection Control Outcome: Ongoing (Interventions Implemented as Appropriate) 12/30/15 0725 Safety Interventions Isolation Precautions standard precautions maintained Infection Prevention rest/sleep promoted;promote handwashing;nutrition promoted;hydration promoted Coping/Psychosocial Response Interventions Counseling emotional support provided;goal setting facilitated Goal: Discharge Needs Assessment Outcome: Ongoing (Interventions Implemented as Appropriate) 12/29/15 0358 12/30/15 0457 Discharge Needs Assessment Concerns to be Addressed -- adjustment to diagnosis/illness concerns Readmission Within the Last 30 Days clinical decline -- Community Agency Name(s) -- [facility]NA Equipment Needed After Discharge none -- Self-Care Equipment Currently Used at Home none -- Living Environment Transportation Available car;family or friend will provide -- Current Health Outpatient/Agency/Support Group Needs -- homecare agency (specify level of care) Problem: Kidney Transplant Recipient (Adult) Goal: Signs and symptoms of listed potential problems will be absent or manageable (reference (Kidney Transplant Recipient (Adult)) CPG) Outcome: Ongoing (Interventions Implemented as Appropriate) 12/29/15 0358 12/30/15 0457 Kidney Transplant Recipient Problems Assessed (Kidney Transplant) all -- Problems Present (Kidney Transplant) -- situational response * Consult Note - Yeimi Elam - 12/30/2015 11:04 AM EDT UROLOGY CONSULT NOTE Reason for Consultation: transplant kidney hydronephrosis History of Present Illness: Ethel Akins is a 65 yo M with PMH of DM, HTN, HCV, 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 He presented to Transplant clinic 12/27 with elevated Cr despite no symptoms, admitted to Transplant service for workup of worsening renal function. Underwent transplant renal ultrasound which showed moderate pelvicaliectasis which is increased in comparison to prior ultrasound from 12/10/15. Now s/p IR placement of PCN into transplant kidney with large volume UOP in the past 24 hours (>5L). Urology has been consulted for assistance with management of PCN and transplant hydronephrosis. He denies recent fevers/chills, nausea/vomiting, dysuria, hematuria, urgency/frequency. He reports good emptying of his bladder with double voiding. Reports good stream before and after kidney transplant, had increased nocturia pre-transplant. Past Medical/Surgical History: Past Medical History Diagnosis [...] ??? UTI (urinary tract infection) N39.0 Past Surgical History Procedure Laterality Date ??? Pro anastomosis, av, any site Left 05/09/2015 AV FISTULA CREATION, DIRECT HEMODIALYSIS, ANY SITE, EG ASHWINI FISTULA UPPER EXTREMITY performed by Que Amaro MD at [facility] MA[facility] OR ??? Pro transplantation of kidney N/A 09/16/2015 @KIDNEY TRANSPLANT, WITHOUT RECIPIENT NEPHRECTOMY performed by Franko Larkin MD at [facility] MA[facility] OR ??? Pro transplant, prep cadaver renal graft N/A 09/16/2015 @PREPARATION CADAVERIC RENAL ALLOGRAFT performed by Franko Larkin MD at [facility] MA[facility] OR ??? N/A 09/16/2015 ORGAN ACQUISITION RENAL, CADAVERIC performed by Franko Larkin MD at [facility] OR Social History: Social History Social [...] Systems: Review of Systems Constitution: Negative for chills, decreased appetite and fever. Respiratory: Negative for cough and shortness of breath. Musculoskeletal: Negative for back pain. Gastrointestinal: Negative for constipation, diarrhea, nausea and vomiting. Genitourinary: Negative for bladder incontinence, dysuria, flank pain, frequency, hematuria and urgency. Medications: No current facility-administered medications on file prior to encounter. Current Outpatient Prescriptions on File Prior to Encounter Medication Sig Dispense Refill ??? fludrocortisone (FLORINEF) [...] TOUCH DELICA LANCETS 30 gauge Misc 0 Physical Exam: Temp: [36.2 ??C (97.2 ??F)-36.8 ??C (98.2 ??F)] Heart Rate: [67-84] Resp: [16-24] BP: (122-188)/(61-89) SpO2: [90 %-98 %] General: No acute distress. Card: RRR, no murmur Lungs: nonlabored breathing on RA Abd: Soft, ND, NT to palpation over transplant kidney, PCN in place with clear, yellow urine : moran in place with minimal clear yellow urine Labs: Recent Labs 12/30/15 0809 12/29/15 0607 12/28/15 0914 WBC 6.0 6.9 7.1 HGB 14.6 12.8* 13.6* PLATELET 278 259 279 NA 143 140 138 K 4.5 4.8 5.2* CL 106 105 100 CO2 17* 17* 20* BUN 45* 51* 51* CREATININE 5.46* 6.98* 7.29* CALCIUM 9.7 8.9 9.3 MAGNESIUM 0.73 0.63* 0.67* Component Value Date/Time SPGRAVITYUA 1.009 12/28/2015 0913 PHUADIP 6.0 12/28/2015 0913 PROTEINUADIP Negative 12/28/2015 0913 GLUCOSEU Negative 12/28/2015 0913 KETONESUA Negative 12/28/2015 0913 UROBILIUADIP Normal 12/28/2015 0913 BLOODUADIP Negative 12/28/2015 0913 NITRATEUA Negative 12/28/2015 0913 LEUKOESTERUA Trace (A) 12/28/2015 0913 WBCUA 6 (H) 12/28/2015 0913 BILIRUBINUA Negative 12/28/2015 0913 Microbiology: 12/27 UCx - 1-9K GP organisms, probably contaminant Imagin12/28/15 transplant renal ultrasound INDICATIONS: acute rise in creat. rule out obstruction ?? COMPARISON: Ior 12/10/15 ?? RENAL ALLOGRAFT: Size (cm) L: 12.4 AP: 6.8 TV: 8.0 ?? Cortical Thickness: Normal Echogenicity: Normal Perinephric Fluid/Collections: No collection identified Hydronephrosis: Moderate and worsening ?? RENAL TRANSPLANT DUPLEX: PSV EDV RI (cm/s) (cm/s) Segmental Artery 68.4 12.8 0.81 Upper Pole: Segmental Artery 30.9 6.5 0.79 Mid Allograft: Segmental Artery 30.9 6.8 0.78 Lower Pole: Main Renal Artery 83.7 12.5 0.84 At Anastomosis: Main Renal Artery 120.0 20.1 0.83 Mid: Main Renal Artery 85.6 13.4 0.84 At Hilum: ?? URINARY BLADDER: Pre-void (cm) L: 2.9 AP: 3.4 TV: 3.5 Vol (ml): 18.1 ?? Comment: Not distended. Moran Catheter present. ?? IMPRESSION Ultrasound Dictation: 1. 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 The urinary bladder at the time of scanning was virtually empty. 2. Borderline elevated RI measurements throughout the kidney. Assessment: Ethel Akins is a 65 y.o. who is s/p DDKT who is admitted with rising Cr and found to have evidence of obstructive uropathy on transplant renal ultrasound. Both renal pelvis and proximal ureter appear dilated making inherent UPJ obstruction less likely. Possible he is passing stone or sloughedpapilla, would be best evaluated with non contrast CT of pelvis. If CT negative, would next plan for nephrostogram in IR to evaluate for transplant ureteral stricture. Could also be related to bladder outlet obstruction, he continues to take Flomax. Since PCN placement has had large volume UOP, would beware of possible post-obstructive diuresis. Recommendations: -non contrast CT of pelvis to evaluate for possible stone -if CT negative, would recommend antegrade nephrostogram in IR to evaluate for stricture -monitor UOP, may develop post-obstructive diuresis now s/p PCN placement, follow lytes Patient seen and discussed with Dr. Garcia. We will continue to follow. YEIMI ELAM MD Associated attestation - Scot Garcia Jr., MD - 12/30/2015 2:18 PM EDT STAFF ADDENDUM: I saw and examined Ethel Akins with Dr. Elam and have independently reviewed his imaging studies. I agree with history, exam, impression, and plan as noted. Recommend CT toassess for stone, if none evident then would plan nephrostogram. * Plan of Care - Yudelka Hinojosa RN - 12/30/2015 5:17 AM EDT Problem: General Plan of Care Goal: Plan of Care Review Outcome: Ongoing (Interventions Implemented as Appropriate) 12/30/15 0452 Plan of Care Review Plan of Care Outcome Status ongoing (interventions implemented as appropriate) Progress improving Coping/Psychosocial Response Interventions Plan of Care Reviewed with patient OUTCOME EVALUATION NOTE: OUTCOME SUMMARY: Yash has rested overnight. He has been up to the bathroom three times to have bowel movements overnight. His left nephrostomy tube has had large amounts of urine out overnight, the coloration alternates between pink, light pink and yellow. His moran output has significantly decreased since nephro tube placed. He rates his pain around 2-3 out of 10, controlled with as needed tylenol. PLAN MOVING FORWARD: Monitor urine output and coloration, encourage ambulation INDIVIDUALIZED FALL PREVENTION INTERVENTIONS: Patient-specific fall risk factors per assessment: [current deficits]: Multiple drains Assistance [level of assistance required for transfers and ambulation]: Stand-by assist Supervision [direct monitoring required during toileting and ADLs]: Arms reach Surveillance [continuous indirect monitoring]: Purposeful rounding, call robles with reach Patient-specific fall prevention interventions for sensory deficits provided, if applicable: No CPG GOAL OUTCOME EVALUATION: Goal: Individualization and Mutuality Outcome: Ongoing (Interventions Implemented as Appropriate) 12/29/15 0358 12/30/15 0457 Individualization Patient Specific Preferences Call me Yash -- Patient Specific Goals -- Rest Patient Specific Interventions -- Monitor nephrostomy tube for output Goal: Fall Prevention-Safe Patient Handling Outcome: Ongoing (Interventions Implemented as Appropriate) 12/29/152014 Safety Interventions Safety Precautions/Fall Reduction low bed;nonskid shoes/slippers when out of bed Musculoskeletal Interventions Positioning independent Goal: Infection Control Outcome: Ongoing (Interventions Implemented as Appropriate) 12/29/152014 Safety Interventions Isolation Precautions standard precautions maintained Infection Prevention rest/sleep promoted Coping/Psychosocial Response Interventions Counseling goal setting facilitated Goal: Discharge Needs Assessment Outcome: Ongoing (Interventions Implemented as Appropriate) 12/29/1535712/30/15456 Discharge Needs Assessment Concerns to be Addressed -- adjustment to diagnosis/illness concerns Readmission Within the Last 30 Days clinical decline -- Community Agency Name(s) -- [facility] Self-Care Equipment Currently Used at Home none -- Living Environment Transportation Available car;family or friend will provide -- Current Health Outpatient/Agency/Support Group Needs -- homecare agency (specify level of care) Problem: Kidney Transplant Recipient (Adult) Goal: Signs and symptoms of listed potential problems will be absent or manageable (reference (Kidney Transplant Recipient (Adult)) CPG) Outcome: Ongoing (Interventions Implemented as Appropriate) 12/29/1535712/30/15456 Kidney Transplant Recipient Problems Assessed (Kidney Transplant) all -- Problems Present (Kidney Transplant) -- situational response * Plan of Care - Bernarda Pedroza RN - 12/29/2015 2:18 PM EDT Problem: General Plan of Care Goal: Plan of Care Review Outcome: Ongoing (Interventions Implemented as Appropriate) 12/29/1535712/29/15 0909 Plan of Care Review Plan of Care Outcome Status ongoing (interventions implemented as appropriate) -- Progress no change -- Coping/Psychosocial Response Interventions Plan of Care Reviewed with -- patient OUTCOME EVALUATION NOTE: OUTCOME SUMMARY: Yash denies pain, NPO since midnight for nephrotube placement, report called at noon and transpo up around 1400. Pt resting between chair and bed. Moran with adequate urine Pt back with nephrotube around 1600, still stating no pain, BP elevated above 180, MD aware, ordered hydralazine, IV painful, IV team paged PLAN MOVING FORWARD: Nephrotube, ambulation INDIVIDUALIZED FALL PREVENTION INTERVENTIONS: Patient-specific fall risk factors per assessment: [current deficits]: moran Assistance [level of assistance required for transfers and ambulation]: independent Supervision [direct monitoring required during toileting and ADLs]: independent Surveillance [continuous indirect monitoring]: Purposeful rounding, masimo, call robles in reach Patient-specific fall prevention interventions for sensory deficits provided, if applicable: Yes lighting CPG GOAL OUTCOME EVALUATION: Goal: Fall Prevention-Safe Patient Handling Outcome: Ongoing (Interventions Implemented as Appropriate) 12/29/1590812/29/15942 Safety Interventions Safety Precautions/Fall Reduction low bed;nonskid shoes/slippers when out of bed;environmental modification -- Stephens Fall Risk History of Falling 0 -- Secondary Diagnosis 15 -- Ambulatory Aids 0 -- Intravenous Therapy/Heparin/Saline Lock 20 -- Gait/Transferring 0 -- Mental Status 0 -- Score 35 -- OTHER Stephens Fall Risk Med -- Musculoskeletal Interventions Activity/Level of Assistance -- up ad chiquita;up in posey;up in room;with stand by assist Positioning independent -- Goal: Infection Control Outcome: Ongoing (Interventions Implemented as Appropriate) 12/29/15908 Safety Interventions Isolation Precautions standard precautions maintained Infection Prevention rest/sleep promoted;promote handwashing Coping/Psychosocial Response Interventions Counseling emotional support provided;goal setting facilitated Goal: Discharge Needs Assessment Outcome: Ongoing (Interventions Implemented as Appropriate) 12/29/15357 Discharge Needs Assessment Concerns to be Addressed no discharge needs identified Readmission Within the Last 30 Days clinical decline Equipment Needed After Discharge none Self-Care Equipment Currently Used at Home none Living Environment Transportation Available car;family or friend will provide Problem: Kidney Transplant Recipient (Adult) Goal: Signs and symptoms of listed potential problems will be absent or manageable (reference (Kidney Transplant Recipient (Adult)) CPG) Outcome: Ongoing (Interventions Implemented as Appropriate) 12/29/15357 Kidney Transplant Recipient Problems Assessed (Kidney Transplant) all Problems Present (Kidney Transplant) situational response * Plan of Care - Sandra Dodd RN - 12/29/2015 4:03 AM EDT Problem: General Plan of Care Goal: Plan of Care Review Outcome: Ongoing (Interventions Implemented as Appropriate) 12/29/15357 Plan of Care Review Plan of Care Outcome Status ongoing (interventions implemented as appropriate) Progress no change Coping/Psychosocial Response Interventions Plan of Care Reviewed with patient OUTCOME EVALUATION NOTE: OUTCOME SUMMARY: Yash had a quiet night. He reports feeling well and denies pain. MIVF running, good amts clear yellow urine draining via moran. Pt made NPO at midnight for procedure today. PLAN MOVING FORWARD: Maintain NPO status until IR today. Continue to monitor labs & UOP closely. INDIVIDUALIZED FALL PREVENTION INTERVENTIONS: Patient-specific fall risk factors per assessment: [current deficits]: Baseline numbess R foot. Assistance [level of assistance required for transfers and ambulation]: Yash can move independently once unhooked from masimo, etc. Supervision [direct monitoring required during toileting and ADLs]: Eyes on per 24h policy; otherwise, Yash does not require supervision. Surveillance [continuous indirect monitoring]: Purposeful rounding, call robles in reach. Patient-specific fall prevention interventions for sensory deficits provided, if applicable: Yes: verbal cues, assistance with lines. CPG GOAL OUTCOME EVALUATION: Yash feels well, and is appropriately NPO for his procedure today. Goal: Individualization and Mutuality Outcome: Ongoing (Interventions Implemented as Appropriate) 12/29/15357 Individualization Patient Specific Preferences Call me Yash Patient Specific Goals rest, go home & stay home Goal: Fall Prevention-Safe Patient Handling Outcome: Ongoing (Interventions Implemented as Appropriate) 12/28/151999 Safety Interventions Safety Precautions/Fall Reduction fall reduction program maintained;lighting adjusted for task/safety;low bed;nonskid shoes/slippers when out of bed Musculoskeletal Interventions Activity/Level of Assistance up in room;with stand by assist Goal: Infection Control Outcome: Ongoing (Interventions Implemented as Appropriate) 12/29/15357 Safety Interventions Isolation Precautions standard precautions maintained Goal: Discharge Needs Assessment Outcome: Ongoing (Interventions Implemented as Appropriate) 12/29/15357 Discharge Needs Assessment Concerns to be Addressed no discharge needs identified Readmission Within the Last 30 Days clinical decline Equipment Needed After Discharge none Self-Care Equipment Currently Used at Home none Living Environment Transportation Available car;family or friend will provide Problem: Kidney Transplant Recipient (Adult) Goal: Signs and symptoms of listed potential problems will be absent or manageable (reference (Kidney Transplant Recipient (Adult)) CPG) Outcome: Ongoing (Interventions Implemented as Appropriate) 12/29/15357 Kidney Transplant Recipient Problems Assessed (Kidney Transplant) all Problems Present (Kidney Transplant) situational response documented in this encounter Plan of Treatment Upcoming Encounters Date Type Department Care Team (Late st Contact Info) Description 04/15/2024 10:00 AM EDT Hospital Encounter [place] [address] Arrived Scheduled Orders Name Type Priority Associated Diagnoses Orde r Schedule Magnesium Lab Routine Kidney transplant infection Expected: 01/04/2016, Expires: 01/02/2017 Phosphorus Lab Routine Kidney transplant infection Expected: 01/04/2016, Expires: 01/02/2017 Scheduled Referrals Name Type Priority Associated Diagnoses Orde r Schedule Referral to Urology Outpatient Referral Routine Kidney transplant infection Ordered: 01/02/2016 documented as of this encounter Procedures Procedure Name Priority Date/Time Associated Diagnosis Comments HEMOGRAM Routine 01/03/2016 7:49 AM EDT DIFFERENTIAL, AUTOMATED Routine 01/03/2016 7:49 AM EDT CBC (WITH DIFF) Routine 01/03/2016 7:49 AM EDT PHOSPHORUS Routine 01/03/2016 7:49 AM EDT MAGNESIUM Routine 01/03/2016 7:49 AM EDT BASIC METABOLIC PANEL Routine 01/03/2016 7:49 AM EDT HCV GENOTYPE Routine 01/02/2016 3:59 PM EDT HEPATITIS C GENOTYPE Routine 01/02/2016 3:59 PM EDT HEPATITIS C RNA, QUANTITATIVE, PCR Routine 01/02/2016 3:59 PM EDT PROTHROMBIN TIME Routine 01/02/2016 3:59 PM EDT HEMOGRAM Routine 01/02/2016 8:10 AM EDT DIFFERENTIAL, AUTOMATED Routine 01/02/2016 8:10 AM EDT TACROLIMUS LEVEL Timed 01/02/2016 8:10 AM EDT CBC (WITH DIFF) Routine 01/02/2016 8:10 AM EDT PHOSPHORUS Routine 01/02/2016 8:10 AM EDT MAGNESIUM Routine 01/02/2016 8:10 AM EDT BASIC METABOLIC PANEL Routine 01/02/2016 8:10 AM EDT IR ALL PROCEDURES Routine 01/01/2016 5:01 PM EDT HEMOGRAM Routine 01/01/2016 6:22 AM EDT DIFFERENTIAL, AUTOMATED Routine 01/01/2016 6:22 AM EDT CBC (WITH DIFF) Routine 01/01/2016 6:22 AM EDT PHOSPHORUS Routine 01/01/2016 6:22 AM EDT MAGNESIUM Routine 01/01/2016 6:22 AM EDT BASIC METABOLIC PANEL Routine 01/01/2016 6:22 AM EDT TACROLIMUS LEVEL Timed 12/31/2015 8:00 AM EDT HEMOGRAM Routine 12/31/2015 7:59 AM EDT DIFFERENTIAL, AUTOMATED Routine 12/31/2015 7:59 AM EDT CBC (WITH DIFF) Routine 12/31/2015 7:59 AM EDT PHOSPHORUS Routine 12/31/2015 7:59 AM EDT MAGNESIUM Routine 12/31/2015 7:59 AM EDT BASIC METABOLIC PANEL Routine 12/31/2015 7:59 AM EDT BASIC METABOLIC PANEL Routine 12/30/2015 3:[address] ABDOMEN AND PELVIS WO CONTRAST Routine 12/30/2015 12:49 PM EDT HEMOGRAM Routine 12/30/2015 8:09 AM EDT DIFFERENTIAL, AUTOMATED Routine 12/30/2015 8:09 AM EDT CBC (WITH DIFF) Routine 12/30/2015 8:09 AM EDT PHOSPHORUS Routine 12/30/2015 8:09 AM EDT MAGNESIUM Routine 12/30/2015 8:09 AM EDT BASIC METABOLIC PANEL Routine 12/30/2015 8:09 AM EDT IR ALL PROCEDURES Routine 12/29/2015 3:14 PM EDT ABO/RH TYPING STAT 12/29/2015 8:30 AM EDT ANTIBODY SCREEN STAT 12/29/2015 8:30 AM EDT TYPE AND SCREEN ([facility]P/MOSES) STAT 12/29/2015 8:30 AM EDT HEMOGRAM Routine 12/29/2015 6:07 AM EDT DIFFERENTIAL, AUTOMATED Routine 12/29/2015 6:07 AM EDT CBC (WITH DIFF) Routine 12/29/2015 6:07 AM EDT PHOSPHORUS Routine 12/29/2015 6:07 AM EDT MAGNESIUM Routine 12/29/2015 6:07 AM EDT BASIC METABOLIC PANEL Routine 12/29/2015 6:07 AM EDT documented in this encounter Results * (ABNORMAL) Differential, Automated (01/03/2016 7:49 AM EDT) Neutrophil % 73.9 % [facility] Neutrophil Absolute 3.45 1.50 - 6.30 x10(3)/mc L [facility] Lymph % 19.9 % [facility] Lymphocytes Abs 0.9(L) 1.0 - 3.6 x10(3)/mc L [facility] Monocyte % 1.7 % [facility] Monocyte Abs 0.1(L) 0.2 - 1.0 x10(3)/[facility] Eos % 3.0 % [facility] Eosinophils Abs 0.1 0.0 - 0.5 x10(3)/[facility] Basophil % 1.3 % [facility] Baso Absolute 0.1 0.0 - 0.2 x10(3)/[facility] Immature Gran % 0.20 % [facility] Comment: Immature granulocytes(IG's)percentage and absolute count will include metamyelocytes, myelocytes, and promyelocytes. Blood smears from CBCs yielding IG's will be scanned manually for concordance. If this scan disagrees with the automated IG or if promyelocytes are noted, a manual differential will be performed. Immature Gran Absolute 0.01 0.00 - 0.05 x10(3)/[facility] Blood specimen (specimen) 01/03/2016 7:49 AM EDT 01/03/2016 8:40 AM EDT Narrative Resulting Agency Comment Spec In Lab Tal Eagle MD HEMATOLOGY ORDERA BLES [facility] [place] [address] * (ABNORMAL) Hemogram (01/03/2016 7:49 AM EDT) White Blood Cell 4.7 4.0 - 10.0 x10(3)/[facility] Red Blood Cell 4.31(L) 4.63 - 6.08 x10(6)/[facility] Hemoglobin 13.7 13.7 - 17.5 gm/dL [facility] Hematocrit 39.7(L) 40.0 - 51.0 % [facility] Mean Cell Volume 92.1(H) 79.0 - 92.0 fL [facility] Mean Cell Hemoglobin 31.8 25.6 - 32.2 pg [facility] Mean Cell Hemoglobin Concentration 34.5 32.0 - 36.5 gm/dL [facility] Platelet 202 145 - 370 x10(3)/mc L [facility] RDW Standard Deviation 46.1(H) 35.0 - 46.0 fL [facility] RDW coefficient of variation 13.8 10.9 - 14.4 % [facility] Mean Platelet Volume 9.5 9.0 - 12.0 fL [facility] Blood specimen (specimen) 01/03/2016 7:49 AM EDT 01/03/2016 8:40 AM EDT Narrative Resulting Agency Comment Spec In Lab Tal Eagle MD HEMATOLOGY ORDERA BLES Performing Organization Address [facility]/ZIP Co de Phone Number [facility] [place] [address] * (ABNORMAL) Phosphorus (01/03/2016 7:49 AM EDT) Phosphorus 2.1(L) 2.5 - 4.5 mg/dL [facility] Blood specimen (specimen) 01/03/2016 7:49 AM EDT 01/03/2016 8:40 AM EDT Narrative Resulting Agency Comment Spec In Lab Tal Eagle MD CHEMISTRY ORDERAB LES Performing Organization Address City/[facility]/ZIP Co de Phone Number [facility] [place] [address] * (ABNORMAL) Basic Metabolic Panel (non-fasting) (01/03/2016 7:49 AM EDT) Glucose 176 65 - 199 mg/dL [facility] Comment:Diabetes: >=200 mg/d L plus symptoms Blood Urea Nitrogen 27(H) 10 - 20 mg/dL [facility] Creatinine 2.84(H) 0.80 - 1.50 mg/dL [facility] Comment: Please note that the pediatric reference intervals supplied above were not validated at [facility]. Results from pediatric patients should be interpreted in conjunction to the patient's age, height and muscle mass. Sodium 141 135 - 145 mmol/L [facility] Potassium 4.1 3.5 - 5.0 mmol/L [facility] Comment: Please note: ??Patients with WBC >100,000 may have falsely elevated Potassium levels. ??For accurate Potassium quantification in these patients send serum separator tube (gold top) for subsequent determinations. ??Contact the Clinical Chemistry Laboratory if there are any questions. Chloride 103 98 - 107 mmol/L [facility] Carbon Dioxide 22 22 - 31 mmol/L [facility] Anion Gap 16(H) 5 - 15 mmol/L [facility] Calcium 9.2 8.5 - 10.5 mg/dL [facility] Est Glomerular Filtration Rate 22(L) >=[address] [facility] Comment: This [...] the following links into your internet browser. [email or web address] Blood specimen (specimen) 01/03/2016 7:49 AM EDT 01/03/2016 8:40 AM EDT Narrative Resulting Agency Comment Spec In Lab Tal Eagle MD CHEMISTRY ORDERAB LES [facility] [place] [address] * (ABNORMAL) Magnesium (01/03/2016 7:49 AM EDT) Magnesium 0.68(L) 0.69 - 1.07 mmol/L [facility] Blood specimen (specimen) 01/03/2016 7:49 AM EDT 01/03/2016 8:40 AM EDT Narrative Resulting Agency Comment Spec In Lab Tal Eagle MD CHEMISTRY ORDERAB LES [facility] [place] [address] * HCV Genotype (01/02/2016 3:59 PM EDT) HCV Genotype Indication for study Hepatitis C Infection Result 1a Interpretation: The genotyping analysis has identified the presence of HCV genotype ??1a in the submitted specimen. ??In the [place], the most common HCV genotypes are 1a and 1b, followed by genotypes 2 and 3. Genotypes 2 and 3 have better therapeutic response rates (80%) than genotypes 1 and 4 (45%) to current standard therapy (ribavirin plus pegylated interferon alpha-2a or alpha-2b). Response rate of genotype 5 appears to be similar to those of genotypes 2 and 3 whereas genotype 6 may be at an intermediate level between genotype 1 and genotypes 2 or 3. Analysis: Identification of HCV genotype was carried out using Hyginex XT-8 detection system. Method: Plasma was initially subjected to quantitative RT-PCR using the Kirsten NIK Ampliprep/NIK Taqman HCV assay. The HCV genotyping was carried out using Hyginex XT-8 detection system that targets 5? -untranslated region of the HCV genome. The amplicon from the Kirsten assay served as a template for the nested PCR followed by a direct analysis on the Motility Count XT-8 detection system for the identification of HCV genotypes. The genotypes/subtypes detected by this method include 1a, 1b, 2a/c, 2b, 3, 4, 5 and 6a/b. This test was validated and its performance characteristics determined by the Molecular Pathology Laboratory at [facility]. It has not been cleared or approved by the FDA. This laboratory is regulated under CLIA as qualified to perform high-complexity testing. This test is used for clinical purposes. It should not be regarded as investigational or for research. References: Lorie RM, Rubén DJ, Kelton R, Gauri SD. Evolving epidemiology of hepatitis C virus in the [place]. Clin Infect Dis. 2012; 55:S3-9. Poordad F, Austin D. Treating hepatitis C: current standard of care and emerging direct-acting antiviral agents. J Viral Hepat. 2012; 19:449-64. Amrita MH, Elias HURST. Prevalence and treatment of hepatitis C virus genotypes 4, 5, and 6. Clin Gastroenterol Hepatol. 2005; 3:F67-L975. Miner JS, Aspkarla E, Sole D, Friedman AJ, Richy ME. Current and emerging antiviral treatments for hepatitis C infection. Br J Clin Pharmacol. 2012 Feb 13. [Epub ahead of print] [facility] Comment: [VERIFIED DATE]01.15.16 Verified By:Nella Evans (Electronic Signature) Blood specimen (specimen) 01/02/2016 3:59 PM EDT 01/08/2016 8:06 AM EDT Narrative Resulting Agency Comment Spec In Lab Que Amaro MD HEMATOLOGY ORD ERABLES [facility] [place] [address] * Hepatitis C RNA, quantitative, PCR (01/02/2016 3:59 PM EDT) [facility] HCV Viral Load 604,635 IU/mL [facility] HCV Viral Load Result: [id number] IU/mL Indication for Study: Hepatitis C Infection Analysis: A quantitiative real time reverse transcriptase PCR assay was performed on extracted viral RNA for the purpose of quantification. Sample: plasma (1 mL minimum volume) Method: Kirsten Nik TaqMAN 48 HCV Linear Range: 15 IU/mL - 100,000,000IU/mL (95% CI) Note: This assay is being performed in the [facility] Molecular Pathology Laboratory. Gibson Good, Ph.D. Director, Molecular Pathology [facility] Comment: [VERIFIED DATE]01.09.16 Verified By:Fatemeh Garcia (Electronic Signature) Blood specimen (specimen) 01/02/2016 3:59 PM EDT 01/08/2016 8:06 AM EDT Narrative Resulting Agency Comment Spec In Lab Que Amaro MD MOLECULAR ORDBhargav DICK [facility] [place] [address] * Prothrombin Time (01/02/2016 3:59 PM EDT) Prothrombin Time 13.6 12.0 - 15.0 sec [facility] Comment: An INR <2.0 indicates [...] International Normalization Ratio 1.0 0.9 - 1.1 [facility] Blood specimen (specimen) 01/02/2016 3:59 PM EDT 01/02/2016 4:20 PM EDT Narrative Resulting Agency Comment Spec In Lab Que Amaro MD HEMATOLOGY ORD ERABLES [facility] [place] [address] * (ABNORMAL) Differential, Automated (01/02/2016 8:10 AM EDT) Neutrophil % 72.5 % [facility] Neutrophil Absolute 4.09 1.50 - 6.30 x10(3)/mc L [facility] Lymph % 21.6 % [facility] Lymphocytes Abs 1.2 1.0 - 3.6 x10(3)/mc L [facility] Monocyte % 1.4 % [facility] Monocyte Abs 0.1(L) 0.2 - 1.0 x10(3)/mc L [facility] Eos % 3.4 % [facility] Eosinophils Abs 0.2 0.0 - 0.5 x10(3)/mc L [facility] Basophil % 0.9 % [facility] Baso Absolute 0.0 0.0 - 0.2 x10(3)/ L [facility] Immature Gran % 0.20 % [facility] Comment: Immature granulocytes(IG's)percentage and absolute count will include metamyelocytes, myelocytes, and promyelocytes. Blood smears from CBCs yielding IG's will be scanned manually for concordance. If this scan disagrees with the automated IG or if promyelocytes are noted, a manual differential will be performed. Immature Gran Absolute 0.01 0.00 - 0.05 x10(3)/ L [facility] Blood specimen (specimen) 01/02/2016 8:10 AM EDT 01/02/2016 8:16 AM EDT Narrative Resulting Agency Comment Spec In Lab Tal Eagle MD HEMATOLOGY ORDERA BLES Performing Organization Address City/State/[facility] Co de Phone Number [facility] [place] [address] * (ABNORMAL) Hemogram (01/02/2016 8:10 AM EDT) White Blood Cell 5.6 4.0 - 10.0 x10(3)/ L [facility] Red Blood Cell 4.44(L) 4.63 - 6.08 x10(6)/ L [facility] Hemoglobin 13.9 13.7 - 17.5 gm/dL [facility] Hematocrit 40.1 40.0 - 51.0 % [facility] Mean Cell Volume 90.3 79.0 - 92.0 fL [facility] Mean Cell Hemoglobin 31.3 25.6 - 32.2 pg [facility] Mean Cell Hemoglobin Concentration 34.7 32.0 - 36.5 gm/dL [facility] Platelet 230 145 - 370 x10(3)/ L [facility] RDW Standard Deviation 45.1 35.0 - 46.0 fL [facility] RDW coefficient of variation 13.7 10.9 - 14.4 % [facility] Mean Platelet Volume 9.2 9.0 - 12.0 fL [facility] Blood specimen (specimen) 01/02/2016 8:10 AM EDT 01/02/2016 8:16 AM EDT Narrative Resulting Agency Comment Spec In Lab Tal Eagle MD HEMATOLOGY ORDERA BLES Performing Organization Address [facility] Co de Phone Number [facility] [place] [address] * Phosphorus (01/02/2016 8:10 AM EDT) [facility] Phosphorus 2.8 2.5 - 4.5 mg/dL [facility] Blood specimen (specimen) 01/02/2016 8:10 AM EDT 01/02/2016 8:16 AM EDT Narrative Resulting Agency Comment Spec In Lab Tal Eagle MD CHEMISTRY ORDERAB LES Performing Organization Address [facility] de Phone Number [facility] [place] [address] * (ABNORMAL) Basic Metabolic Panel (non-fasting) (01/02/2016 8:10 AM EDT) Pathologist [facility] Glucose 141 65 - 199 mg/dL [facility] Comment:Diabetes: >=200 mg/d L plus symptoms Blood Urea Nitrogen 33(H) 10 - 20 mg/dL [facility] Creatinine 3.36(H) 0.80 - 1.50 mg/dL [facility] Comment: Please note that the pediatric reference intervals supplied above were not validated at [facility]. Results from pediatric patients should be interpreted in conjunction to the patient's age, height and muscle mass. Sodium 136 135 - 145 mmol/L [facility] Potassium 4.1 3.5 - 5.0 mmol/L [facility] Comment: Please note: ??Patients with WBC >100,000 may have falsely elevated Potassium levels. ??For accurate Potassium quantification in these patients send serum separator tube (gold top) for subsequent determinations. ??Contact the Clinical Chemistry Laboratory if there are any questions. Chloride 99 98 - 107 mmol/L [facility] Carbon Dioxide 21(L) 22 - 31 mmol/L [facility] Anion Gap 16(H) 5 - 15 mmol/L [facility] Calcium 9.6 8.5 - 10.5 mg/dL [facility] Est Glomerular Filtration Rate 18(L) >=60 [facility] Comment: This [...] the following links into your internet browser. [email or web address] Blood specimen (specimen) 01/02/2016 8:10 AM EDT 01/02/2016 8:16 AM EDT Narrative Resulting Agency Comment Spec In Lab Tal Eagle MD CHEMISTRY ORDERAB LES Performing Organization Address City/[facility] Co de Phone Number [facility] [place] [address] * Magnesium (01/02/2016 8:10 AM EDT) Magnesium 0.70 0.69 - 1.07 mmol/L [facility] Blood specimen (specimen) 01/02/2016 8:10 AM EDT 01/02/2016 8:16 AM EDT Narrative Resulting Agency Comment Spec In Lab Tal Eagle MD CHEMISTRY ORDERAB LES Performing Organization Address City/[facility] Co de Phone Number [facility] [place] [address] * Tacrolimus level (01/02/2016 8:10 AM EDT) Tacrolimus 9.1 ng/mL [facility] Comment:Trough therapeutic: 5-15 ng/mL Blood specimen (specimen) 01/02/2016 8:10 AM EDT 01/02/2016 11:39 AM EDT Narrative Resulting Agency Comment Spec In Lab Que Amaro MD CHEMISTRY ROCHELLE JENNINGS [facility] [place] [address] * IR all procedures (01/01/2016 5:01 PM EDT) Anatomical Region Laterality Modality Abdomen X-Ray Angiograph y Impressions 01/01/2016 7:20 PM EDT : 1. 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 ?? 2. ??Balloon dilated to 6 mm ?? 3. ??8.5 Fr nephrouerterostomy tube left across stricture Plan : PNU tube to gravity drainage x 48 hours, then cap. ??Open to gravity drainage bag in case of pain, leakage around tube, fever. ?? Narrative 01/01/2016 7:20 PM EDT VIR PROCEDURE NOTE: ?? Percutaneous nephrostomy check, ureteral stricture balloon dilatation, nephroureterostomy tube placement INDICATION: ?? history of transplant kidney, now with hydro s/p PCN placement, resolving renal function; negative CT for obstructing ureteral stones TECHNIQUE: Informed consent was obtained after the risks, benefits and complications of the procedure were all explained. ??Due to the painful nature of the procedure, patient was sedated by the IR nurse with split doses of fentanyl and versed. ?? Maximum sterile barrier precautions were used throughout the procedure. The patient was prepped and draped in supine position. Rabbler image obtained. Through the existing left pelvic percutaneous nephrostomy tube, contrast injected and spot image obtained. ?? 9 cc 1% lidocaine SQ anesthesia administered. ??Over an 0.035 inch 3J wire, nephrostomy removed, and 4 Fr Berenstein advanced. ??Ureter selected with angled .035 inch wire and Berenstein advanced to UPJ occlusion. Over .035 inch Amplatz, catheter exchanged for 6 Fr sheath, and through this Berenstein and glidewire advanced across occlusion into bladder. ??Over wire, 6 mm angioplasty balloon advanced, and stricture dilated x 2 to 6.3 mm (14 opal x 1 min, no residual waist). ??Over the wire, an 8.5 Fr nephroureterostomy tube placed (locking loop distal, with sideholes extending back into renal collecting system.) ?? Contrast study performed. Catheter sutured to skin and left to gravity drainage bag. Contrast: 20 cc. (30 cc discarded) ??Fluoro Dose: 6 min. ??EBL: 0 cc Findings: ??Transplant left kidney, occlusion at UPJ. Balloon dilated to 6 mm without waist, and 8.5 Fr nephroureterostomy placed. Que Amaro MD IMG IR ORDERAB LES * (ABNORMAL) Differential, Automated (01/01/2016 6:22 AM EDT) Neutrophil % 69.0 % [facility] Neutrophil Absolute 3.89 1.50 - 6.30 x10(3)/mc L [facility] Lymph % 23.4 % [facility] Lymphocytes Abs 1.3 1.0 - 3.6 x10(3)/mc L [facility] Monocyte % 1.4 % [facility] Monocyte Abs 0.1(L) 0.2 - 1.0 x10(3)/mc L [facility] Eos % 4.8 % [facility] Eosinophils Abs 0.3 0.0 - 0.5 x10(3)/mc L [facility] Basophil % 1.2 % [facility] Baso Absolute 0.1 0.0 - 0.2 x10(3)/mc L [facility] Immature Gran % 0.20 % [facility] Comment: Immature granulocytes(IG's)percentage and absolute count will include metamyelocytes, myelocytes, and promyelocytes. Blood smears from CBCs yielding IG's will be scanned manually for concordance. If this scan disagrees with the automated IG or if promyelocytes are noted, a manual differential will be performed. Immature Gran Absolute 0.01 0.00 - 0.05 x10(3)/ L [facility] Blood specimen (specimen) 01/01/2016 6:22 AM EDT 01/01/2016 6:31 AM EDT Narrative Resulting Agency Comment Spec In Lab Tal Eagle MD HEMATOLOGY ORDERA BLES [facility] [place] [address] * (ABNORMAL) Hemogram (01/01/2016 6:22 AM EDT) White Blood Cell 5.6 4.0 - 10.0 x10(3)/[facility] Red Blood Cell 4.32(L) 4.63 - 6.08 x10(6)/[facility] Hemoglobin 13.4(L) 13.7 - 17.5 gm/dL [facility] Hematocrit 38.7(L) 40.0 - 51.0 % [facility] Mean Cell Volume 89.6 79.0 - 92.0 fL [facility] Mean Cell Hemoglobin 31.0 25.6 - 32.2 pg [facility] Mean Cell Hemoglobin Concentration 34.6 32.0 - 36.5 gm/dL [facility] Platelet 243 145 - 370 x10(3)/[facility] RDW Standard Deviation 45.1 35.0 - 46.0 fL [facility] RDW coefficient of variation 13.6 10.9 - 14.4 % [facility] Mean Platelet Volume 8.8(L) 9.0 - 12.0 fL [facility] Blood specimen (specimen) 01/01/2016 6:22 AM EDT 01/01/2016 6:31 AM EDT Narrative Resulting Agency Comment Spec In Lab Tal Eagle MD HEMATOLOGY ORDERA BLES Performing Organization Address City/[facility]/ZIP Co de Phone Number [facility] [place] [address] * Phosphorus (01/01/2016 6:22 AM EDT) [facility] Phosphorus 3.5 2.5 - 4.5 mg/dL [facility] Blood specimen (specimen) 01/01/2016 6:22 AM EDT 01/01/2016 6:31 AM EDT Narrative Resulting Agency Comment Spec In Lab Tal Eagle MD CHEMISTRY ORDERAB LES Performing Organization Address [facility] Co de Phone Number [facility] [place] [address] * (ABNORMAL) Basic Metabolic Panel (non-fasting) (01/01/2016 6:22 AM EDT) [facility] Glucose 119 65 - 199 mg/dL [facility] Comment:Diabetes: >=200 mg/d L plus symptoms Blood Urea Nitrogen 35(H) 10 - 20 mg/dL [facility] Creatinine 3.64(H) 0.80 - 1.50 mg/dL [facility] Comment: Please note that the pediatric reference intervals supplied above were not validated at [facility]. Results from pediatric patients should be interpreted in conjunction to the patient's age, height and muscle mass. Sodium 138 135 - 145 mmol/L [facility] [...] mmol/L [facility] Carbon Dioxide 22 22 - 31 mmol/L [facility] Anion Gap 15 5 - 15 mmol/L [facility] Calcium 9.1 8.5 - 10.5 mg/dL [facility] Est Glomerular Filtration Rate 17(L) >=60 [facility] Comment: This [...] the following links into your internet browser. [email or web address] Blood specimen (specimen) 01/01/2016 6:22 AM EDT 01/01/2016 6:31 AM EDT Narrative Resulting Agency Comment Spec In Lab Tal Eagle MD CHEMISTRY ORDERAB LES Performing Organization Address City/[facility]/ZIP Co de Phone Number [facility] [place] [address] * Magnesium (01/01/2016 6:22 AM EDT) Magnesium 0.74 0.69 - 1.07 mmol/L [facility] Blood specimen (specimen) 01/01/2016 6:22 AM EDT 01/01/2016 6:31 AM EDT Narrative Resulting Agency Comment Spec In Lab Tal Eagle MD CHEMISTRY ORDERAB LES [facility] [place] [address] * Tacrolimus level (12/31/2015 8:00 AM EDT) Tacrolimus 6.5 ng/mL [facility] Comment:Trough therapeutic: 5-15 ng/mL Blood specimen (specimen) 12/31/2015 8:00 AM EDT 12/31/2015 11:45 AM EDT Narrative Resulting Agency Comment Spec In Lab Tal Eagle MD CHEMISTRY ORDERAB LES Performing Organization Address City/[facility]/[place] [address] * (ABNORMAL) Differential, Automated (12/31/2015 7:59 AM EDT) Neutrophil % 76.3 % [facility] Neutrophil Absolute 4.99 1.50 - 6.30 x10(3)/mc L [facility] Lymph % 17.1 % [facility] Lymphocytes Abs 1.1 1.0 - 3.6 x10(3)/mc L [facility] Monocyte % 2.0 % [facility] Monocyte Abs 0.1(L) 0.2 - 1.0 x10(3)/mc L [facility] Eos % 3.2 % [facility] Eosinophils Abs 0.2 0.0 - 0.5 x10(3)/ L [facility] Basophil % 1.2 % [facility] Baso Absolute 0.1 0.0 - 0.2 x10(3)/ L [facility] Immature Gran % 0.20 % [facility] Comment: Immature granulocytes(IG's)percentage and absolute count will include metamyelocytes, myelocytes, and promyelocytes. Blood smears from CBCs yielding IG's will be scanned manually for concordance. If this scan disagrees with the automated IG or if promyelocytes are noted, a manual differential will be performed. Immature Gran Absolute 0.01 0.00 - 0.05 x10(3)/mc L [facility] Blood specimen (specimen) 12/31/2015 7:59 AM EDT 12/31/2015 8:10 AM EDT Narrative Resulting Agency Comment Spec In Lab Tal Eagle MD HEMATOLOGY ORDERA BLES Performing Organization Address City/[facility]/ZIP Co de Phone Number [facility] [place] [address] * (ABNORMAL) Hemogram (12/31/2015 7:59 AM EDT) White Blood Cell 6.5 4.0 - 10.0 x10(3)/ L [facility] Red Blood Cell 4.51(L) 4.63 - 6.08 x10(6)/mc L [facility] Hemoglobin 14.2 13.7 - 17.5 gm/dL [facility] Hematocrit 40.8 40.0 - 51.0 % [facility] Mean Cell Volume 90.5 79.0 - 92.0 fL [facility] Mean Cell Hemoglobin 31.5 25.6 - 32.2 pg [facility] Mean Cell Hemoglobin Concentration 34.8 32.0 - 36.5 gm/dL [facility] Platelet 273 145 - 370 x10(3)/[facility] RDW Standard Deviation 46.1(H) 35.0 - 46.0 fL [facility] RDW coefficient of variation 14.0 10.9 - 14.4 % [facility] Mean Platelet Volume 9.1 9.0 - 12.0 fL [facility] Blood specimen (specimen) 12/31/2015 7:59 AM EDT 12/31/2015 8:10 AM EDT Narrative Resulting Agency Comment Spec In Lab Tal Eagle MD HEMATOLOGY ORDERA BLES Performing Organization Address City/State/[facility] Co de Phone Number [facility] [place] [address] * Phosphorus (12/31/2015 7:59 AM EDT) Phosphorus 3.4 2.5 - 4.5 mg/dL [facility] Blood specimen (specimen) 12/31/2015 7:59 AM EDT 12/31/2015 8:10 AM EDT Narrative Resulting Agency Comment Spec In Lab Tal Eagle MD CHEMISTRY ORDERAB LES [facility] [place] [address] * (ABNORMAL) Basic Metabolic Panel (non-fasting) (12/31/2015 7:59 AM EDT) Glucose 126 65 - 199 mg/dL [facility] Comment:Diabetes: >=200 mg/d L plus symptoms Blood Urea Nitrogen 39(H) 10 - 20 mg/dL [facility] Creatinine 4.36(H) 0.80 - 1.50 mg/dL [facility] Comment: result rechecked-[facility] Please note that the pediatric reference intervals supplied above were not validated at [facility]. Results from pediatric patients should be interpreted in conjunction to the patient's age, height and muscle mass. Sodium 139 135 - 145 mmol/L [facility] Potassium 4.3 3.5 - 5.0 mmol/L [facility] Comment: Please note: ??Patients with WBC >100,000 may have falsely elevated Potassium levels. ??For accurate Potassium quantification in these patients send serum separator tube (gold top) for subsequent determinations. ??Contact the Clinical Chemistry Laboratory if there are any questions. Chloride 102 98 - 107 mmol/L [facility] Carbon Dioxide 21(L) 22 - 31 mmol/L [facility] Anion Gap 16(H) 5 - 15 mmol/L [facility] Calcium 9.6 8.5 - 10.5 mg/dL [facility] Est Glomerular Filtration Rate 14(L) >=60 [facility] Comment: This [...] the following links into your internet browser. [email or web address] Blood specimen (specimen) 12/31/2015 7:59 AM EDT 12/31/2015 8:10 AM EDT Narrative Resulting Agency Comment Spec In Lab Tal Eagle MD CHEMISTRY ORDERAB LES Performing Organization Address [facility] de Phone Number [facility] [place] [address] * Magnesium (12/31/2015 7:59 AM EDT) Magnesium 0.75 0.69 - 1.07 mmol/L [facility] Blood specimen (specimen) 12/31/2015 7:59 AM EDT 12/31/2015 8:10 AM EDT Narrative Resulting Agency Comment Spec In Lab Tal Eagle MD CHEMISTRY ORDERAB LES Performing Organization Address [facility] de Phone Number [facility] [place] [address] * (ABNORMAL) Basic Metabolic Panel (non-fasting) (12/30/2015 3:43 PM EDT) Glucose 140 65 - 199 mg/dL [facility] Comment:Diabetes: >=200 mg/d L plus symptoms Blood Urea Nitrogen 44(H) 10 - 20 mg/dL [facility] Creatinine 5.20(H) 0.80 - 1.50 mg/dL [facility] Comment: Please note that the pediatric reference intervals supplied above were not validated at [facility]. Results from pediatric patients should be interpreted in conjunction to the patient's age, height and muscle mass. Sodium 142 135 - 145 mmol/L [facility] Potassium 4.2 3.5 - 5.0 mmol/L [facility] Comment: Please note: ??Patients with WBC >100,000 may have falsely elevated Potassium levels. ??For accurate Potassium quantification in these patients send serum separator tube (gold top) for subsequent determinations. ??Contact the Clinical Chemistry Laboratory if there are any questions. Chloride 104 98 - 107 mmol/L [facility] Carbon Dioxide 20(L) 22 - 31 mmol/L [facility] Anion Gap 18(H) 5 - 15 mmol/L [facility] Calcium 9.1 8.5 - 10.5 mg/dL [facility] Est Glomerular Filtration Rate 11(L) >=60 [facility] Comment: This [...] the following links into your internet browser. [email or web address] Blood specimen (specimen) 12/30/2015 3:43 PM EDT 12/30/2015 4:03 PM EDT Narrative Resulting Agency Comment Spec In Lab Tal Eagle MD CHEMISTRY ORDERAB LES Performing Organization Address City/State/[facility] Co de Phone Number [facility] [place] [address] * CT Abdomen & Pelvis Wo Contrast (12/30/2015 12:49 PM EDT) Anatomical Region Laterality Modality Abdomen, Pelvis Computed Tomogra phy Impressions 12/30/2015 2:23 PM EDT 1. ??Transplant kidney in the left lower quadrant with nephrostomy tube in place and air within the renal collecting system. No renal parenchymal or collecting system calculi detected. 2. ??Mildly hyperdense 5 mm focus within the gallbladder neck suspicious for gallstone. Consider further characterization with right upper quadrant ultrasound. 3. ??Other findings, as above. Narrative 12/30/2015 2:23 PM EDT EXAMINATION: CT ABDOMEN AND PELVIS WO CONTRAST CLINICAL HISTORY: s/p donor kidney transplant in september, now signs of post-renal failure. Non-con CT to evaluate for stones. TECHNIQUE: Helical CT of the abdomen and pelvis was performed without the use of intravenous contrast. ??Multiplanar reformatted images were generated. COMPARISON: Abdomen ultrasound dated December 28, 2015, and June 07, 2014. FINDINGS: Evaluation of the pulmonary bases demonstrates minimal bilateral pleural thickening. No pericardial or pleural effusion is seen. Limited, noncontrast enhanced evaluation of the liver, gallbladder, spleen, pancreas, and the adrenal glands reveals mild diffuse prominence of the left adrenal gland and a rounded peripherally hyperdense 5 mm focus in the region of the gallbladder neck suggestive of a a gallstone. Atrophic bilateral [place] kidneys are seen with left inferior pole exophytic 3.1 x 3.7 x 4.3 cm simple cyst. Unremarkable appearance of small and large bowel. Normal appendix is visualized. Transplant kidney is present in the left lower quadrant. Nephrostomy tube is in place. Air is present within the transplant renal collecting system. No renal calcifications detected. Urinary bladder is decompressed with a Moran catheter. There is minimal surrounding fat stranding. No retroperitoneal, mesenteric or pelvic lymphadenopathy seen. Minimally atheromatous of bowel aorta is nonaneurysmal. Evaluation of bone windows demonstrates minimal degenerative changes about both hips with subchondral cyst formation, degenerative spondylosis changes at L5-S1 level, facet hypertrophic changes in the lower lumbar spine, and no suspicious osseous lesions. Procedure Note Steven Power MD - 12/30/2015 EXAMINATION: CT ABDOMEN AND PELVIS WO CONTRAST CLINICAL HISTORY: s/p donor kidney transplant in september, now signsof post-renal failure. Non-con CT to evaluate for stones. TECHNIQUE: Helical CT of the abdomen and pelvis was performed without theuse of intravenous contrast. Multiplanar reformatted images were generated. COMPARISON: Abdomen ultrasound dated December 28, 2015, and June. FINDINGS: Evaluation of the pulmonary bases demonstrates minimal bilateral pleural thickening. No pericardial or pleural effusion is seen. Limited,noncontrast enhanced evaluation of the liver, gallbladder, spleen, pancreas, and theadrenal glands reveals mild diffuse prominence of the left adrenal gland and arounded peripherally hyperdense 5 mm focus in the region of the gallbladder neck suggestive of a a gallstone. Atrophic bilateral [place] kidneys are seen with left inferior poleexophytic 3.1 x 3.7 x 4.3 cm simple cyst. Unremarkable appearance of small and large bowel. Normal appendix isvisualized. Transplant kidney is present in the left lower quadrant. Nephrostomy tubeis in place. Air is present within the transplant renal collecting system. Norenal calcifications detected. Urinary bladder is decompressed with a Foleycatheter. There is minimal surrounding fat stranding. No retroperitoneal, mesentericor pelvic lymphadenopathy seen. Minimally atheromatous of bowel aorta is nonaneurysmal. Evaluation of bone windows demonstrates minimal degenerative changes aboutboth hips with subchondral cyst formation, degenerative spondylosis changes atL5-S1 level, facet hypertrophic changes in the lower lumbar spine, and nosuspicious osseous lesions. IMPRESSION 1. Transplant kidney in the left lower quadrant with nephrostomy tube inplace and air within the renal collecting system. No renal parenchymal orcollecting system calculi detected. 2. Mildly hyperdense 5 mm focus within the gallbladder neck suspiciousfor gallstone. Consider further characterization with right upper quadrant ultrasound. 3. Other findings, as above. Tal Eagle MD IMG CT ORDERABLES * (ABNORMAL) Differential, Automated (12/30/2015 8:09 AM EDT) Neutrophil % 76.2 % [facility] Neutrophil Absolute 4.53 1.50 - 6.30 x10(3)/mc L [facility] Lymph % 17.3 % [facility] Lymphocytes Abs 1.0 1.0 - 3.6 x10(3)/mc L [facility] Monocyte % 2.0 % [facility] Monocyte Abs 0.1(L) 0.2 - 1.0 x10(3)/mc L [facility] Eos % 3.5 % [facility] Eosinophils Abs 0.2 0.0 - 0.5 x10(3)/mc L [facility] Basophil % 0.7 % [facility] Baso Absolute 0.0 0.0 - 0.2 x10(3)/mc L [facility] Immature Gran % 0.30 % [facility] Comment: Immature granulocytes(IG's)percentage and absolute count will include metamyelocytes, myelocytes, and promyelocytes. Blood smears from CBCs yielding IG's will be scanned manually for concordance. If this scan disagrees with the automated IG or if promyelocytes are noted, a manual differential will be performed. Immature Gran Absolute 0.02 0.00 - 0.05 x10(3)/mc L [facility] Blood specimen (specimen) 12/30/2015 8:09 AM EDT 12/30/2015 8:27 AM EDT Narrative Resulting Agency Comment Spec In Lab Tal Eagle MD HEMATOLOGY ORDERA BLES [facility] [place] [address] * (ABNORMAL) Hemogram (12/30/2015 8:09 AM EDT) White Blood Cell 6.0 4.0 - 10.0 x10(3)/mc L [facility] Red Blood Cell 4.61(L) 4.63 - 6.08 x10(6)/mc L [facility] Hemoglobin 14.6 13.7 - 17.5 gm/dL [facility] Hematocrit 41.7 40.0 - 51.0 % [facility] Mean Cell Volume 90.5 79.0 - 92.0 fL [facility] Mean Cell Hemoglobin 31.7 25.6 - 32.2 pg [facility] Mean Cell Hemoglobin Concentration 35.0 32.0 - 36.5 gm/dL [facility] Platelet 278 145 - 370 x10(3)/mc L [facility] RDW Standard Deviation 46.2(H) 35.0 - 46.0 fL [facility] RDW coefficient of variation 14.2 10.9 - 14.4 % [facility] Mean Platelet Volume 9.2 9.0 - 12.0 fL [facility] Blood specimen (specimen) 12/30/2015 8:09 AM EDT 12/30/2015 8:27 AM EDT Narrative Resulting Agency Comment Spec In Lab Tal Eagle MD HEMATOLOGY ORDERA BLES Performing Organization Address [facility] Co de Phone Number [facility] [place] [address] * Phosphorus (12/30/2015 8:09 AM EDT) Phosphorus 4.3 2.5 - 4.5 mg/dL [facility] Blood specimen (specimen) 12/30/2015 8:09 AM EDT 12/30/2015 8:27 AM EDT Narrative Resulting Agency Comment Spec In Lab Tal Eagle MD CHEMISTRY ORDERAB LES Performing Organization Address [facility] Co de Phone Number [facility] [place] [address] * Magnesium (12/30/2015 8:09 AM EDT) [facility] Signature Magnesium 0.73 0.69 - 1.07 mmol/L [facility] Blood specimen (specimen) 12/30/2015 8:09 AM EDT 12/30/2015 8:27 AM EDT Narrative Resulting Agency Comment Spec In Lab Tal Eagle MD CHEMISTRY ORDERAB LES Performing Organization Address [facility] Co de Phone Number [facility] [place] [address] * (ABNORMAL) Basic Metabolic Panel (non-fasting) (12/30/2015 8:09 AM EDT) Glucose 116 65 - 199 mg/dL [facility] Comment:Diabetes: >=200 mg/d L plus symptoms Blood Urea Nitrogen 45(H) 10 - 20 mg/dL [facility] Creatinine 5.46(H) 0.80 - 1.50 mg/dL [facility] Comment: result rechecked-[facility] Please note that the pediatric reference intervals supplied above were not validated at [facility]. Results from pediatric patients should be interpreted in conjunction to the patient's age, height and muscle mass. Sodium 143 135 - 145 mmol/L [facility] Potassium 4.5 3.5 - 5.0 mmol/L [facility] Comment: Please note: ??Patients with WBC >100,000 may have falsely elevated Potassium levels. ??For accurate Potassium quantification in these patients send serum separator tube (gold top) for subsequent determinations. ??Contact the Clinical Chemistry Laboratory if there are any questions. Chloride 106 98 - 107 mmol/L [facility] Carbon Dioxide 17(L) 22 - 31 mmol/L [facility] Anion Gap 20(H) 5 - 15 mmol/L [facility] Calcium 9.7 8.5 - 10.5 mg/dL [facility] Est Glomerular Filtration Rate 11(L) >=60 [facility] Comment: This [...] the following links into your internet browser. [email or web address] Blood specimen (specimen) 12/30/2015 8:09 AM EDT 12/30/2015 8:27 AM EDT Narrative Resulting Agency Comment Spec In Lab Tal Eagle MD CHEMISTRY ORDERAB LES [facility] [place] [address] * IR all procedures (12/29/2015 3:14 PM EDT) Anatomical Region Laterality Modality Abdomen X-Ray Angiograph y Narrative 12/29/2015 3:24 PM EDT IR Procedure Note Procedure: ?LLQ transplant nephrostomy tube placement History/indication: ?? 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 He continues to void and double void to avoid over distension of his bladder. He presented with a Creatinine of 7.29. US demonstrated hydronephrosis and PCN placement is requested. Technique: Review of the [facility] US exam shows mild hydronephrosis; no perinephric fluid present. ?? After obtaining informed consent, the left lower quadrant was prepped and draped in a sterile fashion; maximal sterile barrier technique was employed throughout the case. 1% lidocaine was used as local anesthesia. Under US guidance, the transplant collecting system was accessed with a 21 ga needle. Position within the calyx was confirmed with an injection of contrast material. A 0.018 wire was advanced into the renal pelvis without difficulty. A 5 Fr stiffened micropuncture dilator was then placed and the 0.018 wire exchanged for a 0.035 Aggarwal wire. The access track was dilated to 8 Fr and an 8 Fr locking loop PCN catheter placed. The urine was clear and not turbid. Position was again confirmed with a small injection of contrast. The catheter was then connected to external bag drainage and secured to the adjacent skin with 2-0 nylon suture. . The patient tolerated the procedure well. Complications: ?None immediate; ??EBL=0 Medications: ??1% lidocaine (<10 cc); versed 1.5 mg; fentanyl 75 mcg Contrast: ?5 cc non-ionic/omnipaque Fluoroscopy time: ??1.2 minutes Findings: 1. Mild hydronephrosis on US evaluation. 2. US/fluoroscopic guided placement of an 8 Fr PCN drain as detailed above. Resident: ? Chiquis Attending: ?Jade Nelson MD ? (I was present and scrubbed for the entire procedure) Tal Eagle MD IM IR ORDERABLES * Antibody screen (12/29/2015 8:30 AM EDT) [facility] Signature Ab Screen Interp Negative [facility] Expires at [id number] on: 01/01/2016 [facility] Blood specimen (specimen) 12/29/2015 8:30 AM EDT 12/29/2015 8:52 AM EDT Narrative Resulting Agency Comment Spec In Lab Tal Eagle MD BLOOD BANK LAB OR DERABLES Performing Organization Address [facility] Co de Phone Number [facility] [place] [address] * ABO/Rh Typing (12/29/2015 8:30 AM EDT) ABORH Type AB Pos [facility] Blood specimen (specimen) 12/29/2015 8:30 AM EDT 12/29/2015 8:52 AM EDT Narrative Resulting Agency Comment Spec In Lab Tal Eagle MD BLOOD BANK LAB OR DERABLES Performing Organization Address [facility] Co de Phone Number [facility] [place] [address] * (ABNORMAL) Phosphorus (12/29/2015 6:07 AM EDT) Phosphorus 5.4(H) 2.5 - 4.5 mg/dL [facility] Blood specimen (specimen) Venous Draw / Unknown 12/29/2015 6:07 AM EDT 12/29/2015 6:36 AM EDT Narrative Resulting Agency Comment Spec In Lab Tal Eagle MD CHEMISTRY ORDERAB LES Performing Organization Address [facility] Co de Phone Number [facility] [place] [address] * (ABNORMAL) Magnesium (12/29/2015 6:07 AM EDT) Magnesium 0.63(L) 0.69 - 1.07 mmol/L [facility] Blood specimen (specimen) Venous Draw / Unknown 12/29/2015 6:07 AM EDT 12/29/2015 6:36 AM EDT Narrative Resulting Agency Comment Spec In Lab Tal Eagle MD CHEMISTRY ORDERAB LES Performing Organization Address City/[facility]/[place] [address] * Differential, Automated (12/29/2015 6:07 AM EDT) Neutrophil % 74.4 % [facility] Neutrophil Absolute 5.16 1.50 - 6.30 x10(3)/[facility] Lymph % 17.5 % [facility] Lymphocytes Abs 1.2 1.0 - 3.6 x10(3)/[facility] Monocyte % 3.6 % [facility] Monocyte Abs 0.2 0.2 - 1.0 x10(3)/[facility] Eos % 3.3 % [facility] Eosinophils Abs 0.2 0.0 - 0.5 x10(3)/[facility] Basophil % 0.9 % [facility] Baso Absolute 0.1 0.0 - 0.2 x10(3)/[facility] Immature Gran % 0.30 % [facility] Comment: Immature granulocytes(IG's)percentage and absolute count will include metamyelocytes, myelocytes, and promyelocytes. Blood smears from CBCs yielding IG's will be scanned manually for concordance. If this scan disagrees with the automated IG or if promyelocytes are noted, a manual differential will be performed. Immature Gran Absolute 0.02 0.00 - 0.05 x10(3)/[facility] Blood specimen (specimen) 12/29/2015 6:07 AM EDT 12/29/2015 6:35 AM EDT Narrative Resulting Agency Comment Spec In Lab Tal Eagle MD HEMATOLOGY ORDERA BLES Performing Organization Address City/[facility]/ZIP Co de Phone Number [facility] [place] [address] * (ABNORMAL) Hemogram (12/29/2015 6:07 AM EDT) White Blood Cell 6.9 4.0 - 10.0 x10(3)/mc L [facility] Red Blood Cell 4.15(L) 4.63 - 6.08 x10(6)/mc L [facility] Hemoglobin 12.8(L) 13.7 - 17.5 gm/dL [facility] Hematocrit 37.3(L) 40.0 - 51.0 % [facility] Mean Cell Volume 89.9 79.0 - 92.0 fL [facility] Mean Cell Hemoglobin 30.8 25.6 - 32.2 pg [facility] Mean Cell Hemoglobin Concentration 34.3 32.0 - 36.5 gm/dL [facility] Platelet 259 145 - 370 x10(3)/[facility] RDW Standard Deviation 44.7 35.0 - 46.0 fL [facility] RDW coefficient of variation 13.7 10.9 - 14.4 % [facility] Mean Platelet Volume 9.2 9.0 - 12.0 fL [facility] Blood specimen (specimen) 12/29/2015 6:07 AM EDT 12/29/2015 6:35 AM EDT Narrative Resulting Agency Comment Spec In Lab Tal Eagle MD HEMATOLOGY ORDERA BLES [facility] [place] [address] * (ABNORMAL) Basic Metabolic Panel (non-fasting) (12/29/2015 6:07 AM EDT) Pathologist [facility] Glucose 121 65 - 199 mg/dL [facility] Comment:Diabetes: >=200 mg/d L plus symptoms Blood Urea Nitrogen 51(H) 10 - 20 mg/dL [facility] Creatinine 6.98(H) 0.80 - 1.50 mg/dL [facility] Comment: Please note that the pediatric reference intervals supplied above were not validated at [facility]. Results from pediatric patients should be interpreted in conjunction to the patient's age, height and muscle mass. Sodium 140 135 - 145 mmol/L [facility] Potassium 4.8 3.5 - 5.0 mmol/L [facility] Comment: Please note: ??Patients with WBC >100,000 may have falsely elevated Potassium levels. ??For accurate Potassium quantification in these patients send serum separator tube (gold top) for subsequent determinations. ??Contact the Clinical Chemistry Laboratory if there are any questions. Chloride 105 98 - 107 mmol/L [facility] Carbon Dioxide 17(L) 22 - 31 mmol/L [facility] Anion Gap 18(H) 5 - 15 mmol/L [facility] Calcium 8.9 8.5 - 10.5 mg/dL [facility] Est Glomerular Filtration Rate 8(L) >=60 [facility] Comment: This [...] the following links into your internet browser. [email or web address] Blood specimen (specimen) 12/29/2015 6:07 AM EDT 12/29/2015 6:35 AM EDT Narrative Resulting Agency Comment Spec In Lab Tal Eagle MD CHEMISTRY ORDERAB LES [facility] [place] [address] documented in this encounter Visit Diagnoses Diagnosis Kidney transplant infection Complications of transplanted kidney RAY (acute kidney injury) Acute kidney failure, unspecified documented in this encounter Administered Medications Inactive Administered Medications - up to 3 most recent administrations Medication Order MAR Action Action Date Dose Rate Site acetaminophen (TYLENOL) tablet 650 mg 650 mg, Oral, EVERY 4 HOURS PRN, Starting on Thu12/28/15 at 1614, Until Laura 01/03/16 at 1044, Pain, for MILD pain (1-3), Do not exceed 4,000 mg in 24 hours, Routine Given 01/02/2016 4:04 PM EDT 650 mg Given 01/02/2016 1:10 AM EDT 650 mg Given 01/01/2016 8:57 PM EDT 650 mg clopidogrel (PLAVIX) tablet 75 mg 75 mg, Oral, DAILY, First dose on Thu12/28/15 at 1800, Until Discontinued, Routine Given 01/03/2016 9:20 AM EDT 75 mg Given 01/02/2016 12:13 PM EDT 75 mg Given 12/29/2015 9:06 AM EDT 75 mg DILTiazem (DILTIAZEM CD) ER capsule 120 mg 120 mg, Oral, DAILY, First dose on Thu12/28/15 at 1800, Until Discontinued, DO NOT CRUSH OR OPEN, Routine Given 01/02/2016 9:00 PM EDT 120 mg Given 01/01/2016 8:57 PM EDT 120 mg Given 12/31/2015 9:42 PM EDT 120 mg fentaNYL 50 mcg/mL multi-dose injection 25-50 mcg, Intravenous, EVERY 5 MIN PRN, Starting on 12/29/15 at 1437, Until 12/29/15 at 1511, Pain, per unit protocol, - Start dose [...] and verbal order., Angio/IR (Intra-Procedure), Routine Given 12/29/2015 2:57 PM EDT 25 mcg Given 12/29/2015 2:51 PM EDT 50 mcg fentaNYL 50 mcg/mL multi-dose injection 25-50 mcg, Intravenous, EVERY 5 MIN PRN, Starting on 01/01/16 at 1530, Until Tu01/01/16 at 1715, Pain, per unit protocol, - Start dose [...] and verbal order., Angio/IR (Intra-Procedure), Routine Given 01/01/2016 4:35 PM EDT 50 mcg Given 01/01/2016 4:30 PM EDT 50 mcg Given 01/01/2016 4:25 PM EDT 50 mcg heparin (porcine) subcutaneous injection 5,000 Units 5,000 Units, Subcutaneous, EVERY 12 HOURS SCHEDULED (2 times per day), First dose on Thu12/28/15 at 2100, Until Discontinued, Routine Given 01/02/2016 9:00 PM EDT 5,000 Units Given 01/02/2016 8:34 AM EDT 5,000 Units Given 01/01/2016 8:58 PM EDT 5,000 Units hydrALAZINE (APRESOLINE) injection 10 mg 10 mg, Intravenous, ONCE, 1 dose, On 12/29/15 at 0600 Given 12/29/2015 5:55 AM EDT 10 mg hydrALAZINE (APRESOLINE) injection 10 mg 10 mg, Intravenous, ONCE, 1 dose, On 12/29/15 at 1630 Given 12/29/2015 4:28 PM EDT 10 mg iohexol (OMNIPAQUE) 350 mg/mL solution 17,500 mg 17,500 mg (50 mL), Other, ONCE PRN, Starting on 12/29/15 at 1459, Until 12/29/15 at 1511, Per Protocol, Warning Vesicant/Irritant Medication , Routine Given 12/29/2015 3:06 PM EDT 5 m Ls iohexol (OMNIPAQUE) 350 mg/mL solution 17,500 mg 17,500 mg (50 mL), Other, ONCE PRN, 1 dose, Starting on Thu01/01/16 at 1701, Until Thu01/01/16 at 1702, Per Protocol, Warning Vesicant/Irritant Medication , Routine Given 01/01/2016 5:02 PM EDT 20 mLs levothyroxine (SYNTHROID) tablet 75 mcg 75 mcg, Oral, EVERY MORNING, First dose on Thu12/28/15 at 1800, Until Discontinued, Routine Given 01/03/2016 6:00 AM EDT 75 mcg Given 01/02/2016 6:13 AM EDT 75 mcg Given 01/01/2016 6:27 AM EDT 75 mcg lidocaine (XYLOCAINE) 10 mg/mL (1 %) injection 10 mg 10 mg, Subcutaneous, ONCE, 1 dose, On 12/29/15 at 1500, For use in Interventional Radiology (IR) only for procedure with direct provider supervision and verbal order., Angio/IR (Intra-Procedure), Routine Given 12/29/2015 3:00 PM EDT 10 mg lidocaine (XYLOCAINE) 10 mg/mL (1 %) injection 10 mg 10 mg, Subcutaneous, ONCE, 1 dose, On Tu01/01/16 at 1600, For use in Interventional Radiology (IR) only for procedure with direct provider supervision and verbal order., Angio/IR (Intra-Procedure), Routine Given 01/01/2016 4:30 PM EDT 10 mg magnesium oxide (MAG-OX) tablet 800 mg 800 mg, Oral, 3 TIMES DAILY, First dose on Thu12/28/15 at 1730, Until Discontinued, STAT Given 01/03/2016 9:2 1 AM EDT 800 mg Given 01/02/2016 9:00 PM EDT 800 mg Given 01/02/2016 3:58 PM EDT 800 mg midazolam (PF) (VERSED) 1 mg/mL multi-dose injection 0.5-1 mg 0.5-1 mg, Intravenous, EVERY 3 MIN PRN, Starting on 12/29/15 at 1437, Until 12/29/15 at 1511, Sleep, - Start dose; 1 mg (Reduce [...] and verbal order., Angio/IR (Intra-Procedure), Routine Given 12/29/2015 2:57 PM EDT 0.5 mg Given 12/29/2015 2:51 PM EDT 1 mg midazolam (PF) (VERSED) 1 mg/mL multi-dose injection 0.5-1 mg 0.5-1 mg, Intravenous, EVERY 3 MIN PRN, Starting on Thu01/01/16 at 1530, Until Thu01/01/16 at 1715, Sleep, - Start dose; 1 mg (Reduce [...] and verbal order., Angio/IR (Intra-Procedure), Routine Given 01/01/2016 4:35 PM EDT 1 mg Given 01/01/2016 4:25 PM EDT 1 mg mycophenolate (CELLCEPT) capsule 250 mg 250 mg, Oral, 2 TIMES DAILY, First dose (after last modification) on Thu01/03/16 at 0945, Until Discontinued, DO NOT CRUSH OR OPEN, STAT Given 01/03/2016 9:31 AM EDT 250 mg mycophenolate (CELLCEPT) capsule 500 mg 500 mg, Oral, 2 TIMES DAILY, First dose on Thu12/28/15 at 2100, Until Discontinued, DO NOT CRUSH OR OPEN, Routine Given 01/02/2016 9:00 PM EDT 500 mg Given 01/02/2016 8:35 AM EDT 500 mg Given 01/01/2016 8:58 PM EDT 500 mg pantoprazole (PROTONIX) injection 40 mg 40 mg, Intravenous, DAILY, First dose on Thu12/28/15 at 1630, Until Discontinued, Reconstitute with 10 mL of normal saline to a concentration of 4 mg/mL and infuse slowly over 2 minutes., Routine pantoprazole (PROTONIX) tablet 40 mg 40 mg, Oral, DAILY, First dose on Thu12/28/15 at 1630, Until Discontinued, DO NOT CRUSH OR OPEN If unable to take PO, may give IV Given 01/03/2016 9:21 AM EDT 40 mg Given 01/02/2016 8:34 AM EDT 40 mg Given 01/01/2016 9:15 AM EDT 40 mg sodium chloride 0.9 % flush 5 mL 5 mL, Intravenous, 2 TIMES DAILY, First dose on Thu12/28/15 at 2100, Until Discontinued, Recovery (Recovery-Hospital Unit), Routine Given 01/03/2016 9:20 AM EDT 5 mLs Given 01/02/2016 9:00 PM EDT 10 mLs Given 01/02/2016 8:35 AM EDT 5 mLs sodium chloride 0.9 % flush 5 mL 5 mL, Intravenous, EVERY 12 HOURS, First dose on Thu12/29/15 at 1500, Until Discontinued, Day of Surgery (Day of Procedure), Routine Given 12/31/2015 9:43 PM EDT 5 mLs Given 12/30/2015 8:24 PM EDT 5 mLs Given 12/30/2015 9:11 AM EDT 5 mLs sodium chloride 0.9% infusion 75 mL/hr, Intravenous, CONTINUOUS, Starting on Thu12/28/15 at 1630, Until Thu12/29/15 at 1606, Recovery (Recovery-Hospital Unit) New Bag 12/29/2015 9:09 AM EDT 75 mL/h r 75 mL/hr New Bag 12/28/2015 9:07 PM EDT 75 mL/hr 75 mL/hr sodium chloride 0.9% infusion 50 mL/hr, Intravenous, CONTINUOUS, Starting on Thu01/01/16 at 0000, Until Thu01/01/16 at 1738, Please start 50ml/hr of NS 0.9% at midnight once patient is kept NPO for procedure with IR tomorrow. New Bag 01/01/2016 12:01 AM EDT 50 mL/hr 50 mL/hr sodium chloride 0.9% infusion 250 mL/hr, Intravenous, ONCE, 1 dose, On Thu01/01/16 at 2300, Please give a one time 1000 cc normal saline bolus at 250cc / hr x 4 hours, then d/c bolus and resume original maintenance IVF orders New Bag 01/02/2016 1:05 AM EDT 250 mL/hr 250 mL/hr sodium chloride 0.9% infusion 150 mL/hr, Intravenous, CONTINUOUS, Starting on 01/02/16 at 2115, Until Laura 01/03/16 at 0835 New Bag 01/02/2016 9:15 PM EDT 150 mL/hr 150 mL/hr sulfamethoxazole-trimethoprim (BACTRIM;SEPTRA) 400-80 mg per tablet 1 tablet 1 tablet, Oral, EVERY 24 HOURS SCHEDULED (Daily), First dose on Thu12/30/15 at 0900, Until Discontinued, Routine, Indication for (Active or Suspected): Prophylaxis Given 01/03/2016 9:22 AM EDT 1 tablet Given 01/02/2016 8:35 AM EDT 1 tablet Given 01/01/2016 9:16 AM EDT 1 tablet tacrolimus (PROGRAF) capsule 1 mg 1 mg, Oral, 2 TIMES DAILY, First dose on Thu12/28/15 at 2100, Until Discontinued, Routine Given 01/03/2016 9:21 AM EDT 1 mg Given 01/02/2016 9:00 PM EDT 1 mg Given 01/02/2016 8:34 AM EDT 1 mg tamsulosin (FLOMAX) ER capsule 0.4 mg 0.4 mg, Oral, NIGHTLY, First dose on Thu12/28/15 at 2100, Until Discontinued, DO NOT CRUSH OR OPEN, Routine Given 01/02/2016 9:00 PM EDT 0.4 mg Given 01/01/2016 8:57 PM EDT 0.4 mg Given 12/31/2015 9:43 PM EDT 0.4 mg valGANciclovir (VALCYTE) tablet 450 mg 450 mg, Oral, DAILY, First dose on Thu12/28/15 at 1900, Until Discontinued, Routine, Indication for (Active or Suspected): Prophylaxis Given 01/03/2016 9:21 AM EDT 450 mg Given 01/02/2016 8:35 AM EDT 450 mg Given 01/01/2016 9:16 AM EDT 450 mg documented in this encounter Active and Recently Administered Medications Times are shown in EDT. Scheduled Medication Order 01/01/2016 01/02/2016 01/03/2016 clopidogrel (PLAVIX) tablet 75 mg 75 mg, Oral, DAILY, First dose on Thu12/28/15 at 1800, Until Discontinued, Routine 0915 (Not Given - Provider: Ethel Benitez RN - Reason: See comment - Comment: pt states MD's told him NOT to take prior to procedure) 1213 (Given - Provider: Ethel Benitez RN - Comment: pt states MD's do not want him to take. Will clarify since now post procedure.. OK'ed to give by Dr. amaro) 0920 (Given - Provider: Cami Leonardo, JADEN) DILTiazem (DILTIAZEM CD) ER capsule 120 mg 120 mg, Oral, DAILY, First dose on Thu12/28/15 at 1800, Until Discontinued, DO NOT CRUSH OR OPEN, Routine 2056 (Given - Provider: Cami Leonardo RN) 2099 (Given - Provider: Magaly Rodrigues, JADEN) guar gum soluble fiber powder (NUTRISOURCE FIBER) 1 scoop 1 scoop, Other, 2 TIMES DAILY, 6 doses, First dose on Thu12/31/15 at 0945, Last dose on Thu01/02/16 at 2100, Routine 0900 (Not Given - Provider: Ethel Benitez RN - Reason: Patient/family refused)2099 (Not Given - Provider: Cami Leonardo RN - Reason: Patient/family refused) 09 (Not Given - Provider: Ethel Benitez RN - Reason: Patient/family refused)2099 (Not Given - Provider: Magaly Rodrigues RN - Reason: Patient/family refused) heparin (porcine) subcutaneous injection 5,000 Units 5,000 Units, Subcutaneous, EVERY 12 HOURS SCHEDULED (2 times per day), First dose on Thu12/28/15 at 2100, Until Discontinued, Routine 914 (Given - Provider: Ethel Benitez RN)2057 (Given - Provider: Cami Leonardo RN) 08 (Given - Provider: Ethel Benitez RN)2099 (Given - Provider: Magaly Rodrigues RN) 09 (Not Given - Provider: Cami Leonardo RN - Reason: Patient/family refused - Comment: being discharged and going for multiple walks) levothyroxine (SYNTHROID) tablet 75 mcg 75 mcg, Oral, EVERY MORNING, First dose on Thu12/28/15 at 1800, Until Discontinued, Routine 626 (Given - Provider: Malina Edmonds RN) 06 (Given - Provider: Cami Leonardo RN) 0600 (Given - Provider: Magaly Rodrigues RN) lidocaine (XYLOCAINE) 10 mg/mL (1 %) injection 10 mg (COMPLETED) 10 mg, Subcutaneous, ONCE, 1 dose, On Thu01/01/16 at 1600, For use in Interventional Radiology (IR) only for procedure with direct provider supervision and verbal order., Angio/IR (Intra-Procedure), Routine 1630 (Given - Provider: Yeimi Garcia MD) magnesium oxide (MAG-OX) tablet 800 mg 800 mg, Oral, 3 TIMES DAILY, First dose on Thu12/28/15 at 1730, Until Discontinued, STAT 0916 (Given - Provider: Ethel Benitez RN)1500 (Not Given - Provider: Ethel Benitez RN - Reason: Transfer to a Procedural area)2056 (Given - Provider: Cami Leonardo RN) 0835 (Given - Provider: Ethel Benitez RN)1558 (Given - Provider: Ethel Benitez RN)2100 (Given - Provider: Magaly Rodrigues RN) 0921 (Given - Provider: Cami Leonardo RN) mycophenolate (CELLCEPT) capsule 250 mg 250 mg, Oral, 2 TIMES DAILY, First dose (after last modification) on Thu01/03/16 at 0945, Until Discontinued, DO NOT CRUSH OR OPEN, STAT 0931 (Given - Provider: Cami Leonardo RN) mycophenolate (CELLCEPT) capsule 500 mg (CANCELED) 500 mg, Oral, 2 TIMES DAILY, First dose on Thu12/28/15 at 2100, Until Discontinued, DO NOT CRUSH OR OPEN, Routine 0916 (Given - Provider: Ethel Benitez RN)2057 (Given - Provider: Cami Leonardo RN) 0835 (Given - Provider: Ethel Benitez RN)2100 (Given - Provider: Magaly Rodrigues RN) 0900 (Not Given - Provider: Cami Leonardo RN - Reason: Medication Discontinued) pantoprazole (PROTONIX) injection 40 mg(Linked Group 1) 40 mg, Intravenous, DAILY, First dose on Thu12/28/15 at 1630, Until Discontinued, Reconstitute with 10 mL of normal saline to a concentration of 4 mg/mL and infuse slowly over 2 minutes., Routine 0915 (See Alternative - Provider: Ethel Benitez RN) 0834 (See Alternative - Provider: Ethel Benitez RN) 0921 (See Alternative - Provider: Cami Leonardo RN) pantoprazole (PROTONIX) tablet 40 mg(Linked Group 1) 40 mg, Oral, DAILY, First dose on Thu12/28/15 at 1630, Until Discontinued, DO NOT CRUSH OR OPEN If unable to take PO, may give IV 0915 (Given - Provider: Ethel Benitez RN) 0834 (Given - Provider: Ethel Benitez RN) 0921 (Given - Provider: Cami Leonardo RN) sodium chloride 0.9 % flush 5 mL 5 mL, Intravenous, 2 TIMES DAILY, First dose on Thu12/28/15 at 2100, Until Discontinued, Recovery (Recovery-Hospital Unit), Routine 915 (Given - Provider: Ethel Benitez RN)2057 (Given - Provider: Cami Leonardo RN) 0835 (Given - Provider: Ethel Benitez RN)2099 (Given - Provider: Magaly Rodrigues RN) 0920 (Given - Provider: Cami Leonardo RN) sodium chloride 0.9% infusion (COMPLETED) 250 mL/hr, Intravenous, ONCE, 1 dose, On Thu01/01/16 at 2300, Please give a one time 1000 cc normal saline bolus at 250cc / hr x 4 hours, then d/c bolus and resume original maintenance IVF orders 0105 (New Bag - Provider: Cami Leonardo RN) sulfamethoxazole-trimeth oprim (BACTRIM;SEPTRA) 400-80 mg per tablet 1 tablet 1 tablet, Oral, EVERY 24 HOURS SCHEDULED (Daily), First dose on Thu12/30/15 at 0900, Until Discontinued, Routine, Indication for (Active or Suspected): Prophylaxis 0916 (Given - Provider: Ethel Benitez RN) 0835 (Given - Provider: Ethel Bentiez RN) 0922 (Given - Provider: Cami Leonardo RN) tacrolimus (PROGRAF) capsule 1 mg 1 mg, Oral, 2 TIMES DAILY, First dose on Thu12/28/15 at 2100, Until Discontinued, Routine 0916 (Given - Provider: Ethel Benitez RN)2056 (Given - Provider: Cami Leonardo RN) 0834 (Given - Provider: Ethel Benitez RN)2100 (Given - Provider: Magaly Rodrigues, JADEN) 0921 (Given - Provider: Cami Leonardo, JADEN) tamsulosin (FLOMAX) ER capsule 0.4 mg 0.4 mg, Oral, NIGHTLY, First dose on Thu12/28/15 at 2100, Until Discontinued, DO NOT CRUSH OR OPEN, Routine 2056 (Given - Provider: Cami Leonardo, JADEN) 2100 (Given - Provider: Magaly Rodrigues, JADEN) valGANciclovir (VALCYTE) tablet 450 mg 450 mg, Oral, DAILY, First dose on Thu12/28/15 at 1900, Until Discontinued, Routine, Indication for (Active or Suspected): Prophylaxis 0916 (Given - Provider: Ethel Benitez RN) 0835 (Given - Provider: Ethel Benitez RN) 0921 (Given - Provider: Cami Leonardo RN) Continuous Medication Order 01/01/2016 01/02/2016 01/03/2016 sodium chloride 0.9% infusion (CANCELED) 50 mL/hr, Intravenous, CONTINUOUS, Starting on Thu01/01/16 at 0000, Until Thu01/01/16 at 1738, Please start 50ml/hr of NS 0.9% at midnight once patient is kept NPO for procedure with IR tomorrow. 0001 (New Bag - Provider: Malina Edmonds RN)1804 (Stopped - Provider: Ethel Benitez RN) sodium chloride 0.9% infusion (CANCELED) 150 mL/hr, Intravenous, CONTINUOUS, Starting on Thu01/02/16 at 2115, Until Thu01/03/16 at 0835 2115 (New Bag - Provider: Magaly Rodrigues, JADEN) PRN Medication Order 01/01/2016 01/02/2016 01/03/2016 acetaminophen (TYLENOL) tablet 650 mg 650 mg, Oral, EVERY 4 HOURS PRN, Starting on Thu12/28/15 at 1614, Until Thu01/03/16 at 1044, Pain, for MILD pain (1-3), Do not exceed 4,000 mg in 24 hours, Routine 2056 (Given - Provider: Cami Leonardo RN) 0110 (Given - Provider: Cami Leonardo RN)1604 (Given - Provider: Ethel Benitez RN) fentaNYL 50 mcg/mL multi-dose injection (CANCELED) 25-50 mcg, Intravenous, EVERY 5 MIN PRN, Starting on Thu01/01/16 at 1530, Until Thu01/01/16 at 1715, Pain, per unit protocol, - Start dose [...] supervision and verbal order., Angio/IR (Intra-Procedure), Routine 162 (Given - Provider: Andrade Mendez RN)163 (Given - Provider: Andrade Mendez RN)163 (Given - Provider: Andrade Mendez, JADEN) iohexol (OMNIPAQUE) 350 mg/mL solution 17,500 mg (COMPLETED) 17,500 mg (50 mL), Other, ONCE PRN, 1 dose, Starting on Thu01/01/16 at 1701, Until Thu01/01/16 at 1702, Per Protocol, Warning Vesicant/Irritant Medication , Routine 170 (Given - Provider: Dang Owens) midazolam (PF) (VERSED) 1 mg/mL multi-dose injection 0.5-1 mg (CANCELED) 0.5-1 mg, Intravenous, EVERY 3 MIN PRN, Starting on Thu01/01/16 at 1530, Until Thu01/01/16 at 1715, Sleep, - Start dose; 1 mg (Reduce [...] supervision and verbal order., Angio/IR (Intra-Procedure), Routine 162 (Given - Provider: Andrade Mendez RN)163 (Given - Provider: Andrade A Kreiner, RN) Linked Groups Order Group 1: pantoprazole (PROTONIX) tablet 40 mgJump to med 40 mg, Oral, DAILY, First dose on Thu12/28/15 at 1630, Until Discontinued, DO NOT CRUSH OR OPEN If unable to take PO, may give IV Or pantoprazole (PROTONIX) injection 40 mgJump to med 40 mg, Intravenous, DAILY, First dose on Thu12/28/15 at 1630, Until Discontinued, Reconstitute with 10 mL of normal saline to a concentration of 4 mg/mL and infuse slowly over 2 minutes., Routine documented in this encounter Care Teams Air Compressor Operator Relationship Specialty Start Date End Date [place] Denis DO [address] [place] [address] [address] [facility] [address] [place] [address] PCP - General 09/03/12 03/17/22 Ruchi Valles RN Nurse Clinic Transplant Surgery 07/30/15 documented as of this encounter
--- OUTSIDE RECORDS SUMMARY | 2024-02-14 11:33 | XMS_ITS | Encounter Summary ---
[place] [address] Care Team Providers Care Surgical Nurse Practitioner Name Role Phone Urbano Denis DO Primary Care Provider [phone] Reason for Visit * Auth/Cert Specialty Diagnoses / Procedures Referred By Humberto flor Referred To Contact Diagnoses RAY (acute kidney injury) RAY - RO REJECTION / SP RENAL TRANSPLANT Referral ID Status Reason Start Date Expiration Date Visits Re quested Visits Authorized [id number] 1 1 Encounter Details Date Type Department Care Team (Latest Contact Info) Description 12/28/2015 9:00 AM EDT Laboratory Appointment Lab [address] [place] [phone] Kidney replaced by transplant Social History Tobacco [...] AM EDT Hospital Encounter [place] [phone] Arrived documented as of this encounter Procedures Procedure Name Priority Date/Time Associated Diagnosis Comments BK QUANT BLOOD RESULT STAT 12/28/2015 9:14 AM EDT Kidney replaced by transplant BKV QUANT BLOOD STAT 12/28/2015 9:14 AM EDT Kidney replaced by transplant HEMOGRAM STAT 12/28/2015 9:14 AM EDT Kidney replaced by transplant DIFFERENTIAL, AUTOMATED STAT 12/28/2015 9:14 AM EDT Kidney replaced by transplant TACROLIMUS LEVEL STAT 12/28/2015 9:14 AM EDT Kidney replaced by transplant RETICULOCYTE COUNT STAT 12/28/2015 9: 14 AM EDT Kidney replaced by transplant CBC (WITH DIFF) STAT 12/28/2015 9:14 AM EDT Kidney replaced by transplant URIC ACID STAT 12/28/2015 9:14 AM EDT Kidney replaced by transplant PHOSPHORUS STAT 12/28/2015 9:14 AM EDT Kidney replaced by transplant MAGNESIUM STAT 12/28/2015 9:14 AM EDT Kidney replaced by transplant CHOLESTEROL, TOTAL STAT 12/28/2015 9: 14 AM EDT Kidney replaced by transplant COMPREHENSIVE METABOLIC PANEL STAT 12/28/2015 9:14 AM EDT Kidney replaced by transplant PROTEIN/CREATININE RATIO, URINE STAT 12/28/2015 9:13 AM EDT Kidney replaced by transplant URINALYSIS WITH REFLEX CULTURE STAT 12/28/2015 9:13 AM EDT Kidney replaced by transplant URINE CULTURE STAT 12/28/2015 9:13 AM EDT documented in this encounter Results * BK Quant Blood Result (12/28/2015 9:14 AM EDT) BKV Blood Result Positive [facility] BKV Blood Interp BK Virus Blood Result Interpretation Result: Positive for BK Virus log concentration (copies/mL): ??3.61 log copies/mL (4.1x10^3 copies/mL) Assay Range: urine: 2.83-8.83 log copies/mL (6.8x10^2 - 6.8x10^8 copies/mL ) Results are reported as log copies/mL. ??Changes of less than 1.0 log between serial samples may not be clinically significant. Methods: Quantitative real-time polymerase chain reaction (PCR) of viral DNA isolated from plasma was performed using [employer] BKV (ASR) [employer] and the [employer] 7500 FAST Real-Time PCR System. In addition, the ??PCR product sequence is confirmed using physical properties (melting curve analysis). This test was developed and its performance determined by the [facility] Molecular Pathology Laboratory. It has not been cleared or approved by the U.S. Food and Drug Administration. This test is used for clinical purposes and should not be considered investigational or for research purposes. The Molecular Pathology Laboratory is certified by the Clinical Laboratory Improvement Act of 1988 and as such is allowed to perform high complexity clinical testing. [facility] Comment: [VERIFIED DATE]01.02.16 Verified By:Fatemeh Garcia (Electronic Signature) Blood specimen (specimen) 12/28/2015 9:14 AM EDT 12/28/2015 9:36 AM EDT Narrative Resulting Agency Comment Spec In Lab Tal Eagle MD HEMATOLOGY ORDERA BLES [facility] [place] [address] * Differential, Automated (12/28/2015 9:14 AM EDT) Neutrophil % 71.1 % [facility] Neutrophil Absolute 5.05 1.50 - 6.30 x10(3)/[facility] Lymph % 19.8 % [facility] Lymphocytes Abs 1.4 1.0 - 3.6 x10(3)/[facility] Monocyte % 4.1 % [facility] Monocyte Abs 0.3 0.2 - 1.0 x10(3)/[facility] Eos % 3.2 % [facility] Eosinophils Abs 0.2 0.0 - 0.5 x10(3)/[facility] Basophil % 1.5 % [facility] Baso Absolute 0.1 0.0 - 0.2 x10(3)/[facility] Immature Gran % 0.30 % [facility] Comment: Immature granulocytes(IG's)percentage and absolute count will include metamyelocytes, myelocytes, and promyelocytes. Blood smears from CBCs yielding IG's will be scanned manually for concordance. If this scan disagrees with the automated IG or if promyelocytes are noted, a manual differential will be performed. Immature Gran Absolute 0.02 0.00 - 0.05 x10(3)/[facility] Blood specimen (specimen) 12/28/2015 9:14 AM EDT 12/28/2015 9:21 AM EDT Narrative Resulting Agency Comment Spec In Lab Tal Eagle MD HEMATOLOGY ORDERA BLES [facility] [place] [address] * (ABNORMAL) Hemogram (12/28/2015 9:14 AM EDT) White Blood Cell 7.1 4.0 - 10.0 x10(3)/mc L [facility] Red Blood Cell 4.28(L) 4.63 - 6.08 x10(6)/mc L [facility] Hemoglobin 13.6(L) 13.7 - 17.5 gm/dL [facility] Hematocrit 38.9(L) 40.0 - 51.0 % [facility] Mean Cell Volume 90.9 79.0 - 92.0 fL [facility] Mean Cell Hemoglobin 31.8 25.6 - 32.2 pg [facility] Mean Cell Hemoglobin Concentration 35.0 32.0 - 36.5 gm/dL [facility] Platelet 279 145 - 370 x10(3)/mc L [facility] RDW Standard Deviation 45.7 35.0 - 46.0 fL [facility] RDW coefficient of variation 13.9 10.9 - 14.4 % [facility] Mean Platelet Volume 8.9(L) 9.0 - 12.0 fL [facility] Blood specimen (specimen) 12/28/2015 9:14 AM EDT 12/28/2015 9:21 AM EDT Narrative Resulting Agency Comment Spec In Lab Tal Eagle MD HEMATOLOGY ORDERA BLES [facility] [place] [address] * (ABNORMAL) Comprehensive metabolic panel (non-fasting) (12/28/2015 9:14 AM EDT) Glucose 124 65 - 199 mg/dL [facility] Comment:Diabetes: >=200 mg/d L plus symptoms Blood Urea Nitrogen 51(H) 10 - 20 mg/dL [facility] Creatinine 7.29(H) 0.80 - 1.50 mg/dL [facility] Comment: Please note that the pediatric reference intervals supplied above were not validated at [facility]. Results from pediatric patients should be interpreted in conjunction to the patient's age, height and muscle mass. Sodium 138 135 - 145 mmol/L [facility] Potassium 5.2(H) 3.5 - 5.0 mmol/L [facility] Comment: Please note: ??Patients with WBC >100,000 may have falsely elevated Potassium levels. ??For accurate Potassium quantification in these patients send serum separator tube (gold top) for subsequent determinations. ??Contact the Clinical Chemistry Laboratory if there are any questions. Chloride 100 98 - 107 mmol/L [facility] Carbon Dioxide 20(L) 22 - 31 mmol/L [facility] Anion Gap 18(H) 5 - 15 mmol/L [facility] Calcium 9.3 8.5 - 10.5 mg/dL [facility] Protein, Total 7.7 6.1 - 8.0 gm/dL [facility] Albumin 4.1 3.2 - 5.2 gm/dL [facility] Aspartate Aminotransferase 16 0 - 39 unit/L [facility] Alanine Aminotransferase 11 0 - 55 unit/L [facility] Alkaline Phosphatase 74 40 - 120 unit/L [facility] Bilirubin, Total 0.7 0.2 - 1.3 mg/dL [facility] Bilirubin, Direct 0.2 0.0 - 0.3 mg/dL [facility] Est Glomerular Filtration Rate 8(L) >=60 [facility] Comment: This estimated GFR [...] the following links into your internet browser. [email or web address] [email or web address]/DHMCnkf Blood specimen (specimen) 12/28/2015 9:14 AM EDT 12/28/2015 9:21 AM EDT Narrative Resulting Agency Comment Spec In Lab Tal Eagle MD CHEMISTRY ORDERAB LES [facility] [place] [address] * (ABNORMAL) Magnesium (12/28/2015 9:14 AM EDT) Magnesium 0.67(L) 0.69 - 1.07 mmol/L [facility] Blood specimen (specimen) 12/28/2015 9:14 AM EDT 12/28/2015 9:21 AM EDT Narrative Resulting Agency Comment Spec In Lab Tal Eagle MD CHEMISTRY ORDERAB LES Performing Organization Address City/[facility]/ZIP Co de Phone Number [facility] [address] * (ABNORMAL) Phosphorus (12/28/2015 9:14 AM EDT) Phosphorus 6.0(H) 2.5 - 4.5 mg/dL [facility] Blood specimen (specimen) 12/28/2015 9:14 AM EDT 12/28/2015 9:21 AM EDT Narrative Resulting Agency Comment Spec In Lab Tal Eagle MD CHEMISTRY ORDERAB LES Performing Organization Address [facility] Co de Phone Number [facility] [place] [address] * (ABNORMAL) Uric acid (12/28/2015 9:14 AM EDT) Uric Acid 11.4(H) 3.5 - 8.5 mg/dL [facility] Blood specimen (specimen) 12/28/2015 9:14 AM EDT 12/28/2015 9:21 AM EDT Narrative Resulting Agency Comment Spec In Lab Tal Eagle MD CHEMISTRY ORDERAB LES Performing Organization Address [facility] Co de Phone Number [facility] [place] [address] * Tacrolimus level (12/28/2015 9:14 AM EDT) Tacrolimus 6.5 ng/mL [facility] Comment:Trough therapeutic: 5-15 ng/mL Blood specimen (specimen) 12/28/2015 9:14 AM EDT 12/28/2015 11:50 AM EDT Narrative Resulting Agency Comment Spec In Lab Tal Eagle MD CHEMISTRY ORDERAB LES Performing Organization Address City/[facility]/ZIP Co de Phone Number [facility] [place] [address] * Reticulocyte Count (12/28/2015 9:14 AM EDT) Reticulocyte % 1.0 0.5 - 2.4 % [facility] Retic Abs # 0.040 0.027 - 0.095 x10(6)/mcL [facility] Immature Retic% 6.1 2.3 - 15.9 % [facility] Reticulated Hgb 32.7 28.5 - 38.9 pg [facility] Immature Plt % 1.4 0.0 - 7.4 % [facility] Blood specimen (specimen) 12/28/2015 9:14 AM EDT 12/28/2015 9:21 AM EDT Narrative Resulting Agency Comment Spec In Lab Tal Eagle MD HEMATOLOGY ORDERA BLES Performing Organization Address [facility] Co de Phone Number [facility] [place] [address] * Cholesterol, total (12/28/2015 9:14 AM EDT) Cholesterol, Total 172 <=199 mg/dL [facility] Comment: Recommendations of the NCEP Adult Treatment Panel for the following risk cutoff thresholds for the [place] population: Desirable: <200 mg/dL Borderline High: 200-239 mg/dL High: > or = 240 mg/dL Blood specimen (specimen) 12/28/2015 9:14 AM EDT 12/28/2015 9:21 AM EDT Narrative Resulting Agency Comment Spec In Lab Tal Eagle MD CHEMISTRY ORDERAB LES Performing Organization Address [facility] Co de Phone Number [facility] [place] [address] * (ABNORMAL) Urine culture (12/28/2015 9:13 AM EDT) Urine Culture 1,000-9,000 cfu/ml Gram Positive organisms , probable contaminant(A ) [facility] Urine specimen (specimen) 12/28/2015 9:13 AM EDT 12/28/2015 10:10 AM EDT Narrative Resulting Agency Comment Spec In Lab Tal Eagle MD MICROBIOLOGY - GE NERAL ORDERABLES Performing Organization Address [facility]/ZIP Co de Phone Number [facility] [place] [address] * Protein/Creatinine Ratio, urine (12/28/2015 9:13 AM EDT) Creatinine, Urine 75 mg/dL [facility] Protein, Urine 9 0 - 12 mg/dL [facility] Protein / Creatinine Ratio, Urine 0.1 ratio [facility] Urine specimen (specimen) 12/28/2015 9:13 AM EDT 12/28/2015 9:31 AM EDT Narrative Resulting Agency Comment Spec In Lab Tal Ealge MD URINE ORDERABLES Performing Organization Address [facility] Co de Phone Number [facility] [place] [address] * (ABNORMAL) Urinalysis with reflex Culture (12/28/2015 9:13 AM EDT) Glucose, Urine Dipstick Negative Negative mg/dL [facility] Protein, Urine Dipstick Negative Negative mg/dL [facility] Bilirubin, Urine Dipstick Negative Negative mg/dL [facility] Comment: Clinical correlation required for positive Urine Bilirubin results as false positive may occur with some drugs and drug related products. If a false positive is suspected a serum total bilirubin should be considered if clinically indicated. Urobilinogen, Urine Dipstick Normal Normal mg/dL [facility] pH, Urn (dipstick) 6.0 5.0 - 8.0 [facility] Blood, Urine Dipstick Negative Negative mg/dL [facility] Ketone, Urine Dipstick Negative Negative mg/dL [facility] Nitrite, Urine Dipstick Negative Negative [facility] Leukocytes, Urine Dipstick Trace(A) Negative [facility] Appearance, Urine Dipstick Clear Clear [facility] Specific [place] Urine Automated 1.009 1.002 - 1.030 [facility] Color, Urine Dipstick Straw Yellow [facility] RBC, Urine <1 0 - 3 /HPF [facility] WBC, Urine 6(H) 0 - 3 /HPF [facility] Bacteria, Urine Rare(A) None /HPF [facility] Squamous Epithelial Cells, Urine <1 <=4 /HPF [facility] Reflex to Culture Yes [facility] Urine specimen (specimen) 12/28/2015 9:13 AM EDT 12/28/2015 9:31 AM EDT Narrative Resulting Agency Comment Spec In Lab Tal Eagle MD URINE ORDERABLES Performing Organization Address City/State/[facility] Co de Phone Number [facility] [place] [address] documented in this encounter Visit Diagnoses Diagnosis Kidney replaced by transplant documented in this encounter Care Teams Surgical Nurse Practitioner Relationship Specialty Start Date End Date Urbano Denis DO [address] [place] [address] PCP - General 09/03/12 03/17/22 Ruchi Valles RN Nurse Clinic Transplant Surgery 07/30/15 documented as of this encounter
--- OUTSIDE RECORDS SUMMARY | 2024-02-14 11:34 | XMS_ITS | Encounter Summary ---
Author Organization Formerly [facility] [place] [address] Care Team Providers Care Spray Dyer Name Role Phone Urbano Denis DO Primary Care Provider Reason for Visit * Auth/Cert Specialty Diagnoses / Procedures Referred By Humberto flor Referred To Contact Diagnoses UTI (urinary tract infection) RECURRENT UTI/KIDNEY TX 09/2015 Referral ID Status Reason Start Date Expiration Date Visits Re quested Visits Authorized [id number] 1 1 Encounter Details Date Type Department Care Team (Latest Contact Info) Description 12/04/2015 7:55 AM EDT Laboratory Appointment Lab [address] [place] [id number] Kidney replaced by transplant Social History Tobacco [...] AM EDT Hospital Encounter Non[place] [id number] Arrived documented as of this encounter Procedures Procedure Name Priority Date/Time Associated Diagnosis Comments HEMOGRAM STAT 12/04/2015 8:34 AM EDT Kidney replaced by transplant DIFFERENTIAL, AUTOMATED STAT 12/04/2015 8:34 AM EDT Kidney replaced by transplant TACROLIMUS LEVEL STAT 12/04/2015 8:34 AM EDT Kidney replaced by transplant RETICULOCYTE COUNT STAT 12/04/2015 8: 34 AM EDT Kidney replaced by transplant CBC (WITH DIFF) STAT 12/04/2015 8:34 AM EDT Kidney replaced by transplant URIC ACID STAT 12/04/2015 8:34 AM EDT Kidney replaced by transplant PHOSPHORUS STAT 12/04/2015 8:34 AM EDT Kidney replaced by transplant MAGNESIUM STAT 12/04/2015 8:34 AM EDT Kidney replaced by transplant CHOLESTEROL, TOTAL STAT 12/04/2015 8: 34 AM EDT Kidney replaced by transplant COMPREHENSIVE METABOLIC PANEL STAT 12/04/2015 8:34 AM EDT Kidney replaced by transplant PROTEIN/CREATININE RATIO, URINE STAT 12/04/2015 8:30 AM EDT Kidney replaced by transplant URINALYSIS WITH REFLEX CULTURE STAT 12/04/2015 8:30 AM EDT Kidney replaced by transplant documented in this encounter Results * Differential, Automated (12/04/2015 8:34 AM EDT) Neutrophil % 69.8 % [facility] Neutrophil Absolute 3.70 1.50 - 6.30 x10(3)/[facility] Lymph % 21.3 % [facility] Lymphocytes Abs 1.1 1.0 - 3.6 x10(3)/[facility] Monocyte % 3.6 % [facility] Monocyte Abs 0.2 0.2 - 1.0 x10(3)/[facility] Eos % 3.0 % [facility] Eosinophils Abs 0.2 0.0 - 0.5 x10(3)/[facility] Basophil % 1.5 % [facility] Baso Absolute 0.1 0.0 - 0.2 x10(3)/[facility] Immature Gran % 0.80 % [facility] Comment: Immature granulocytes(IG's)percentage and absolute count will include metamyelocytes, myelocytes, and promyelocytes. Blood smears from CBCs yielding IG's will be scanned manually for concordance. If this scan disagrees with the automated IG or if promyelocytes are noted, a manual differential will be performed. Immature Gran Absolute 0.04 0.00 - 0.05 x10(3)/[facility] Blood specimen (specimen) 12/04/2015 8:34 AM EDT 12/04/2015 8:42 AM EDT Narrative Resulting Agency Comment Spec In Lab Tal Eagle MD HEMATOLOGY ORDERA BLES [facility] [place] [address] * (ABNORMAL) Hemogram (12/04/2015 8:34 AM EDT) White Blood Cell 5.3 4.0 - 10.0 x10(3)/mc L [facility] Red Blood Cell 4.35(L) 4.63 - 6.08 x10(6)/mc L [facility] Hemoglobin 13.9 13.7 - 17.5 gm/dL [facility] Hematocrit 40.2 40.0 - 51.0 % [facility] Mean Cell Volume 92.4(H) 79.0 - 92.0 fL [facility] Mean Cell Hemoglobin 32.0 25.6 - 32.2 pg [facility] Mean Cell Hemoglobin Concentration 34.6 32.0 - 36.5 gm/dL [facility] Platelet 255 145 - 370 x10(3)/mc L [facility] RDW Standard Deviation 48.0(H) 35.0 - 46.0 fL [facility] RDW coefficient of variation 14.2 10.9 - 14.4 % [facility] Mean Platelet Volume 9.6 9.0 - 12.0 fL [facility] Blood specimen (specimen) 12/04/2015 8:34 AM EDT 12/04/2015 8:42 AM EDT Narrative Resulting Agency Comment Spec In Lab Tal Eagle MD HEMATOLOGY ORDERA BLES [facility] [place] [address] * (ABNORMAL) Comprehensive metabolic panel (non-fasting) (12/04/2015 8:34 AM EDT) Glucose 149 65 - 199 mg/dL [facility] Comment:Diabetes: >=200 mg/d L plus symptoms Blood Urea Nitrogen 37(H) 10 - 20 mg/dL [facility] Creatinine 3.10(H) 0.80 - 1.50 mg/dL [facility] Comment: Please note that the pediatric reference intervals supplied above were not validated at [facility]. Results from pediatric patients should be interpreted in conjunction to the patient's age, height and muscle mass. Sodium 141 135 - 145 mmol/L [facility] Potassium 5.0 3.5 - 5.0 mmol/L [facility] Comment: Please note: ??Patients with WBC >100,000 may have falsely elevated Potassium levels. ??For accurate Potassium quantification in these patients send serum separator tube (gold top) for subsequent determinations. ??Contact the Clinical Chemistry Laboratory if there are any questions. Chloride 99 98 - 107 mmol/L [facility] Carbon Dioxide 24 22 - 31 mmol/L [facility] Anion Gap 18(H) 5 - 15 mmol/L [facility] Calcium 9.6 8.5 - 10.5 mg/dL [facility] Protein, Total 7.5 6.1 - 8.0 gm/dL [facility] Albumin 4.4 3.2 - 5.2 gm/dL [facility] Aspartate Aminotransferase 36 0 - 39 unit/L [facility] Alanine Aminotransferase 33 0 - 55 unit/L [facility] Alkaline Phosphatase 69 40 - 120 unit/L [facility] Bilirubin, Total 1.2 0.2 - 1.3 mg/dL [facility] Bilirubin, Direct 0.2 0.0 - 0.3 mg/dL [facility] Est Glomerular Filtration Rate 20(L) >=60 [facility] Comment: This estimated GFR [...] the following links into your internet browser. [email or web address] [email or web address] Blood specimen (specimen) 12/04/2015 8:34 AM EDT 12/04/2015 8:42 AM EDT Narrative Resulting Agency Comment Spec In Lab Tal Eagle MD CHEMISTRY ORDERAB LES [facility] [place] [address] * (ABNORMAL) Magnesium (12/04/2015 8:34 AM EDT) Magnesium 0.65(L) 0.69 - 1.07 mmol/L [facility] Blood specimen (specimen) 12/04/2015 8:34 AM EDT 12/04/2015 8:42 AM EDT Narrative Resulting Agency Comment Spec In Lab Tal Eagle MD CHEMISTRY ORDERAB LES [facility] [place] [address] * Phosphorus (12/04/2015 8:34 AM EDT) Phosphorus 3.9 2.5 - 4.5 mg/dL [facility] Blood specimen (specimen) 12/04/2015 8:34 AM EDT 12/04/2015 8:42 AM EDT Narrative Resulting Agency Comment Spec In Lab Tal Eagle MD CHEMISTRY ORDERAB LES Performing Organization Address [facility] Co de Phone Number [facility] [place] [address] * (ABNORMAL) Uric acid (12/04/2015 8:34 AM EDT) Uric Acid 11.8(H) 3.5 - 8.5 mg/dL [facility] Blood specimen (specimen) 12/04/2015 8:34 AM EDT 12/04/2015 8:42 AM EDT Narrative Resulting Agency Comment Spec In Lab Tal Eagle MD CHEMISTRY ORDERAB LES Performing Organization Address [facility] Co de Phone Number [facility] [place] [address] * Tacrolimus level (12/04/2015 8:34 AM EDT) Tacrolimus 6.3 ng/mL [facility] Comment:Trough therapeutic: 5-15 ng/mL Blood specimen (specimen) 12/04/2015 8:34 AM EDT 12/04/2015 10:56 AM EDT Narrative Resulting Agency Comment Spec In Lab Tal Eagle MD CHEMISTRY ORDERAB LES Performing Organization Address City/[facility]/ZIP Co de Phone Number [facility] [place] [address] * Reticulocyte Count (12/04/2015 8:34 AM EDT) Reticulocyte % 1.4 0.5 - 2.4 % [facility] Retic Abs # 0.060 0.027 - 0.095 x10(6)/mcL [facility] Immature Retic% 4.1 2.3 - 15.9 % [facility] Reticulated Hgb 33.7 28.5 - 38.9 pg [facility] Immature Plt % 1.7 0.0 - 7.4 % [facility] Blood specimen (specimen) 12/04/2015 8:34 AM EDT 12/04/2015 8:42 AM EDT Narrative Resulting Agency Comment Spec In Lab Tal Eagle MD HEMATOLOGY ORDERA BLES Performing Organization Address [facility] Co de Phone Number [facility] [place] [address] * Cholesterol, total (12/04/2015 8:34 AM EDT) Cholesterol, Total 154 <=199 mg/dL [facility] Comment: Recommendations of the NCEP Adult Treatment Panel for the following risk cutoff thresholds for the [place] population: Desirable: <200 mg/dL Borderline High: 200-239 mg/dL High: > or = 240 mg/dL Blood specimen (specimen) 12/04/2015 8:34 AM EDT 12/04/2015 8:42 AM EDT Narrative Resulting Agency Comment Spec In Lab Tal Eagle MD CHEMISTRY ORDERAB LES Performing Organization Address [facility] Co de Phone Number [facility] [place] [address] * Protein/Creatinine Ratio, urine (12/04/2015 8:30 AM EDT) Creatinine, Urine 69 mg/dL [facility] Protein, Urine <6 0 - 12 mg/dL [facility] Protein / Creatinine Ratio, Urine <0.1 ratio [facility] Urine specimen (specimen) 12/04/2015 8:30 AM EDT 12/04/2015 8:44 AM EDT Narrative Resulting Agency Comment Spec In Lab Tal Eagle MD URINE ORDERABLES [facility] [place] [address] * (ABNORMAL) Urinalysis with reflex Culture (12/04/2015 8:30 AM EDT) Glucose, Urine Dipstick Negative Negative mg/dL [facility] Protein, Urine Dipstick Negative Negative mg/dL [facility] Bilirubin, Urine Dipstick Negative Negative mg/dL [facility] Comment: Clinical correlation required for positive Urine Bilirubin results as false positive may occur with some drugs and drug related products. If a false positive is suspected a serum total bilirubin should be considered if clinically indicated. Urobilinogen, Urine Dipstick Normal Normal mg/dL [facility] pH, Urn (dipstick) 6.0 5.0 - 8.0 [facility] Blood, Urine Dipstick Negative Negative mg/dL [facility] Ketone, Urine Dipstick Negative Negative mg/dL [facility] Nitrite, Urine Dipstick Negative Negative [facility] Leukocytes, Urine Dipstick Negative Negative [facility] Appearance, Urine Dipstick Clear Clear [facility] Specific [place] Urine Automated 1.008 1.002 - 1.030 [facility] Color, Urine Dipstick Straw Yellow [facility] RBC, Urine 1 0 - 3 /HPF [facility] WBC, Urine 4(H) 0 - 3 /HPF [facility] Bacteria, Urine Rare(A) None /HPF [facility] Squamous Epithelial Cells, Urine <1 <=4 /HPF [facility] Reflex to Culture No [facility] Urine specimen (specimen) 12/04/2015 8:30 AM EDT 12/04/2015 8:42 AM EDT Narrative Resulting Agency Comment Spec In Lab Tal Eagle MD URINE ORDERABLES [facility] [place] [address] documented in this encounter Visit Diagnoses Diagnosis Kidney replaced by transplant documented in this encounter Care Teams Spray Dyer Relationship Specialty Start Date End Date Urbano Denis DO [address] [place] [address] PCP - General 09/03/12 03/17/22 Ruchi Valles RN Nurse Clinic Transplant Surgery 07/30/15 documented as of this encounter
--- OUTSIDE RECORDS SUMMARY | 2024-02-14 11:34 | XMS_ITS | Encounter Summary ---
Author Organization [facility] [place] [address] Care Team Providers Care Eligibility Clerk Name Role Phone Urbano Denis DO Primary Care Provider Encounter Details Date Type Department Care Team (Late st Contact Info) Description 11/23/2015 9:30 AM EDT Office Visit [place] [address] Jennifer Amaro MD [facility] [place] [address] H/O kidney transplant Social History Tobacco Use [...] Sign Reading Time Taken Comments Blood Pressure 154/78 11/23/2015 8:47 AM EDT Pulse 75 11/23/2015 8:47 AM EDT Temperature 36.4 ??C (97.5 ??F) 11/23/2015 8:47 AM ED T Respiratory Rate - - Oxygen Saturation - - Inhaled Oxygen Concentration - - Weight 98.6 kg (217 lb 6.4 oz) 11/23/2015 8:47 A M EDT Height 177.8 cm (5' 10) 11/23/2015 8:47 AM EDT Body Mass Index 31.19 11/23/2015 8:47 AM EDT documented in this encounter Progress Notes * Herlinda Bell, RD - 11/23/2015 2:36 PM EDT [facility] Post Transplant Nutrition Follow Up Date: 11/23/2015 Patient: Cody Bolden Transplant Date: 09/16/15 [place] organ UNOS diagnosis: Transplant: Mr. Cody Bolden is a White Not nor 65 y.o. male who is Status Post Kidney transplantation on 09/16/15. Patient was seen by Nutrition services on 11/23/2015 for follow up. Wt Readings from Last 3 Encounters: 11/23/15 98.6 kg (217 lb 6.4 oz) 11/21/15 98.8 kg (217 lb 12.8 oz) 11/20/15 97.8 kg (215 lb 9.6 oz) Today's vital signs: Visit Vitals ??? BP 154/78 (BP Location (NBP): Right arm, Patient Position: Sitting) ??? Pulse 75 ??? Temp 36.4 ??C (97.5 ??F) (Oral) ??? Ht 177.8 cm (5' 10) ??? Wt 98.6 kg (217 lb 6.4 oz) ??? BMI 31.19 kg/m2 Estimated body mass index is 31.19 kg/(m^2) as calculated from the following: Height as of this encounter: 177.8 cm (5' 10). Weight as of this encounter: 98.6 kg (217 lb 6.4 oz). Weight pre-Txp: 100.7 Kg (222 lbs) BMI: 31.9 Lab Results Component Value Date HGB 13.4 (L) 11/23/2015 HCT 38.7 (L) 11/23/2015 NA 141 11/23/2015 K 4.8 11/23/2015 BUN 26 (H) 11/23/2015 CREATININE 2.27 (H) 11/23/2015 GLUCOSE 183 11/23/2015 CALCIUM 9.3 11/23/2015 MAGNESIUM 0.57 (L) 11/23/2015 PHOS 3.0 11/23/2015 ALBUMIN 3.9 11/23/2015 Cholesterol (in eD-H the component name CHLPL=Cholesterol) Lab Results Component Value Date CHLPL 142 11/23/2015 Assessment: This junior technical writer provided patient with a copy of his post-transplant nutrition lab report and reviewed with him and his . 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 Continue present plan as per MD. Plan: Follow up next clinic visit and prn. * Jennifer Amaro MD - 11/23/2015 10:01 AM EDT Follow-Up: Transplant Clinic Date: 11/23/2015 Patient: Cody Bolden Date of Transplant: 09/16/2015 (Kidney) Transplant Surgeon: History of Present Illness: Mr. Bolden is a hepatitis C positive 65-yo male with a history of ESRD who underwent donor kidney transplantation from a hepatitis C positive donor. He was admitted a week ago with Enterococcal bacteremia and was discharged on IV daptomycin therapy. He was found to have an elevated creatinine level during his clinic visit on Thursday. This occurred in the setting of a significantly elevated Prograf level (16). He has had a few days of Prograf hold this week and started / last evening. He returned for a routine appointment today. He feels well and there is no dysuria or cloudy urine output. He has had no fevers or rigors. Current Meds: Current Outpatient Prescriptions Medication Sig Dispense Refill ??? valGANciclovir (VALCYTE) 450 mg Tablet Take 2 tablets by mouth daily for 183 days. 60 tablet 6 ??? Magnesium Gluconate 27 mg (500 mg) [...] transplant 09/16/2015. Z94.0 120 capsule 11 ??? potassium phosphate, monobasic, (K-PHOS ORIGINAL) 500 mg Tablet, Soluble Take 1 tablet by mouth2 times daily. 60 tablet 11 ??? tacrolimus (PROGRAF) 1 mg Capsule [...] TOUCH ULTRAMINI Kit 0 ??? ONE TOUCH DELQualnetics LANCETS 30 gauge Misc 0 No current [...] failure N19 ??? Kidney transplant infection T86.13 Past Medical History: Past Medical History Diagnosis [...] EXTREMITY performed by Jennifer Amaro MD at [facility] OR ??? Pro transplantation of kidney N/A 09/16/2015 @KIDNEY TRANSPLANT, WITHOUT RECIPIENT NEPHRECTOMY performed by Franko Larkin MD at [facility] OR ??? Pro transplant, prep cadaver renal graft N/A 09/16/2015 @PREPARATION CADAVERIC RENAL ALLOGRAFT performed by Franko Larkin MD at [facility] OR ??? N/A 09/16/2015 ORGAN ACQUISITION RENAL, CADAVERIC performed by Franko Larkin MD at [facility] OR Family History: No family history on file. Social History: History Substance Use Topics ??? Smoking status: Former Smoker Types: Cigars ??? Smokeless tobacco: Never Used Comment: cigars, only sometimes ??? Alcohol use: No ROS: Review of Systems Constitutional: Negative for chills and fever. Genitourinary: Negative for dysuria. All other systems reviewed and are negative. Vital Signs: Visit Vitals ??? BP 154/78 (BP Location (NBP): Right arm, Patient Position: Sitting) ??? Pulse 75 ??? Temp 36.4 ??C (97.5 ??F) (Oral) ??? Ht 177.8 cm (5' 10) ??? Wt 98.6 kg (217 lb 6.4 oz) ??? BMI 31.19 kg/m2 Physical Exam: Objective: Vital signs (most recent): Blood pressure 154/78, pulse 75, temperature 36.4 ??C (97.5 ??F), temperature source Oral, height 177.8 cm (5' 10), weight 98.6 kg (217 lb 6.4 oz). General appearance: Comfortable, well-appearing, in no acute distress and not in pain. Lungs: Normal respiratory rate and normal effort. Abdomen: Abdomen is soft. No distension or ascites. Tenderness: There is no abdominal tenderness tenderness. Wound: Clean. There is no dehiscence or hernia. There is no drainage. Drain: No Labs: Lab Results Component Value Date CREATININE 2.27 (H) 11/23/2015 K 4.8 11/23/2015 GLUCOSE 183 11/23/2015 HCT 38.7 (L) 11/23/2015 HGB 13.4 (L) 11/23/2015 WBC 7.6 11/23/2015 PHOS 3.0 11/23/2015 Assessment: --Graft function: creatinine level is slowly trending down as his Prograf level comes down from thetoxic range. Await drug level today to determine whether further dosing modifications are necessary. He is receiving 1 L NS with his IV daptomycin infusions and we will continue these today and Thursday as his creatinine has not come down enough to warrant a change to daily daptomycin infusions yet. He is aware that he should increase his PO intake. -- Immunosuppression reviewed and adjusted: Prograf: tacrolimus level is pending on 07/06, trough level goal 7 - 9 Prednisone: none Cellcept: 500 mg po bid -- Hypertension management: no adjustments today -- Electrolytes: Calcium and phosphorus balance reviewed. Magnesium balance reviewed. -- RTC: Next week with a full set of labs, including a Prograf trough level Pharmacy needs addressed. No concerns today. MD: JENNIFER AMARO MD documented in this encounter Plan of Treatment Upcoming Encounters Date Type Department Care Team (Late st Contact Info) Description 04/15/2024 10:00 AM EDT Hospital Encounter [place] [address] Arrived documented as of this encounter Procedures Procedure Name Priority Date/Time Associated Diagnosis Comments HEMOGRAM STAT 11/23/2015 8:40 AM EDT H/O kidney transplant DIFFERENTIAL, AUTOMATED STAT 11/23/2015 8:40 AM EDT H/O kidney transplant GREEN TUBE HOLD STAT 11/23/2015 8:40 AM EDT TACROLIMUS LEVEL STAT 11/23/2015 8:40 AM EDT H/O kidney transplant URINALYSIS WITH REFLEX CULTURE STAT 11/23/2015 8:40 AM EDT H/O kidney transplant RETICULOCYTE COUNT STAT 11/23/2015 8: 40 AM EDT H/O kidney transplant CBC (WITH DIFF) STAT 11/23/2015 8:40 AM EDT H/O kidney transplant URINE CULTURE STAT 11/23/2015 8:40 AM EDT URIC ACID STAT 11/23/2015 8:40 AM EDT H/O kidney transplant PHOSPHORUS STAT 11/23/2015 8:40 AM EDT H/O kidney transplant MAGNESIUM STAT 11/23/2015 8:40 AM EDT H/O kidney transplant CHOLESTEROL, TOTAL STAT 11/23/2015 8: 40 AM EDT H/O kidney transplant COMPREHENSIVE METABOLIC PANEL STAT 11/23/2015 8:40 AM EDT H/O kidney transplant documented in this encounter Results * Urine culture (11/23/2015 8:40 AM EDT) Urine Culture No growth (Less than 1,000 cfu/ml). [facility] Urine specimen obtained by clean catch procedure (specimen) 11/23/2015 8:40 AM EDT 11/23/2015 9:15 AM EDT Narrative Resulting Agency Comment Spec In Lab Jennifer Amaro MD MICROBIOLOGY - GENERAL ORDERABLES [facility] [place] [address] * Green Tube HOLD (11/23/2015 8:40 AM EDT) Green Hold Sample in lab. [facility] Blood specimen (specimen) Venous Draw / Unknown 11/23/2015 8:40 AM EDT 11/23/2015 8:54 AM EDT Jennifer Amaro MD CHEMISTRY ORDE DICK Performing Organization Address City/[facility]/ZIP Co de Phone Number [facility] [place] [address] * (ABNORMAL) Differential, Automated (11/23/2015 8:40 AM EDT) Neutrophil % 73.2 % [facility] Neutrophil Absolute 5.58 1.50 - 6.30 x10(3)/mc L [facility] Lymph % 13.2 % [facility] Lymphocytes Abs 1.0 1.0 - 3.6 x10(3)/mc L [facility] Monocyte % 5.2 % [facility] Monocyte Abs 0.4 0.2 - 1.0 x10(3)/mc L [facility] Eos % 1.8 % [facility] Eosinophils Abs 0.1 0.0 - 0.5 x10(3)/mc L [facility] Basophil % 1.0 % [facility] Baso Absolute 0.1 0.0 - 0.2 x10(3)/mc L [facility] Immature Gran % 5.60 % [facility] Comment: Immature granulocytes(IG's)percentage and absolute count will include metamyelocytes, myelocytes, and promyelocytes. Blood smears from CBCs yielding IG's will be scanned manually for concordance. If this scan disagrees with the automated IG or if promyelocytes are noted, a manual differential will be performed. Immature Gran Absolute 0.43(H) 0.00 - 0.05 x10(3)/mc L [facility] Blood specimen (specimen) 11/23/2015 8:40 AM EDT 11/23/2015 8:53 AM EDT Narrative Resulting Agency Comment Spec In Lab Jennifer Amaro MD HEMATOLOGY ORD MILAGROS Performing Organization Address City/[facility]/ZIP Co de Phone Number [facility] [place] [address] * (ABNORMAL) Hemogram (11/23/2015 8:40 AM EDT) White Blood Cell 7.6 4.0 - 10.0 x10(3)/ L [facility] Red Blood Cell 4.21(L) 4.63 - 6.08 x10(6)/ L [facility] Hemoglobin 13.4(L) 13.7 - 17.5 gm/dL [facility] Hematocrit 38.7(L) 40.0 - 51.0 % [facility] Mean Cell Volume 91.9 79.0 - 92.[address] [facility] Mean Cell Hemoglobin 31.8 25.6 - 32.[address] [facility] Mean Cell Hemoglobin Concentration 34.6 32.0 - 36.5 gm/dL [facility] Platelet 397(H) 145 - 370 x10(3)/[facility] RDW Standard Deviation 47.4(H) 35.0 - 46.[address] [facility] RDW coefficient of variation 14.2 10.9 - 14.4 % [facility] Mean Platelet Volume 9.3 9.0 - 12.[address] [facility] Blood specimen (specimen) 11/23/2015 8:40 AM EDT 11/23/2015 8:53 AM EDT Narrative Resulting Agency Comment Spec In Lab Jennifer Amaro MD HEMATOLOGY ORD ERABLES [facility] [place] [address] * Tacrolimus level (11/23/2015 8:40 AM EDT) Tacrolimus 9.0 ng/mL [facility] Comment:Trough therapeutic: 5-15 ng/mL Blood specimen (specimen) 11/23/2015 8:40 AM EDT 11/23/2015 11:10 AM EDT Narrative Resulting Agency Comment Spec In Lab Jennifer Amaro MD CHEMISTRY ORDBhargav JENNINGS Performing Organization Address City/[facility]/ZIP Co de Phone Number [facility] [place] [address] * (ABNORMAL) Urinalysis with reflex Culture (11/23/2015 8:40 AM EDT) Glucose, Urine Dipstick Negative Negative mg/dL [facility] Protein, Urine Dipstick Negative Negative mg/dL [facility] Bilirubin, [...] [facility] pH, Urn (dipstick) 5.0 5.0 - 8.0 [facility] Blood, Urine Dipstick Negative Negative mg/dL [facility] Ketone, Urine Dipstick Negative Negative mg/dL [facility] Nitrite, Urine Dipstick Negative Negative [facility] Leukocytes, Urine Dipstick Negative Negative [facility] Appearance, Urine Dipstick Clear Clear [facility] Specific [place] Urine Automated 1.009 1.002 - 1.030 [facility] Color, Urine Dipstick Yellow Yellow [facility] RBC, Urine <1 0 - 3 /HPF [facility] WBC, Urine 6(H) 0 - 3 /HPF [facility] Squamous Epithelial Cells, Urine <1 <=4 /HPF [facility] Reflex to Culture Yes [facility] Urine specimen obtained by clean catch procedure (specimen) 11/23/2015 8:40 AM EDT 11/23/2015 8:50 AM EDT Narrative Resulting Agency Comment Spec In Lab Jennifer Amaro MD URINE ORDERABL ES Performing Organization Address City/[facility]/ZIP Co de Phone Number [facility] [place] [address] * Reticulocyte Count (11/23/2015 8:40 AM EDT) Reticulocyte % 2.2 0.5 - 2.4 % [facility] Retic Abs # 0.090 0.027 - 0.095 x10(6)/mcL [facility] Immature Retic% 10.9 2.3 - 15.9 % [facility] Reticulated Hgb 33.0 28.5 - 38.[address] [facility] Immature Plt % 1.1 0.0 - 7.4 % [facility] Blood specimen (specimen) 11/23/2015 8:40 AM EDT 11/23/2015 8:53 AM EDT Narrative Resulting Agency Comment Spec In Lab Jennifer Amaro MD HEMATOLOGY ORD ERABLES Performing Organization Address [facility]/ZIP Co de Phone Number [facility] [place] [address] * (ABNORMAL) Magnesium (11/23/2015 8:40 AM EDT) Magnesium 0.57(L) 0.69 - 1.07 mmol/L [facility] Blood specimen (specimen) 11/23/2015 8:40 AM EDT 11/23/2015 8:53 AM EDT Narrative Resulting Agency Comment Spec In Lab Jennifer Amaro MD CHEMISTRY ORDE RABLES Performing Organization Address City/[facility]/ZIP Co de Phone Number [facility] [place] [address] * Phosphorus (11/23/2015 8:40 AM EDT) Phosphorus 3.0 2.5 - 4.5 mg/dL [facility] Blood specimen (specimen) 11/23/2015 8:40 AM EDT 11/23/2015 8:53 AM EDT Narrative Resulting Agency Comment Spec In Lab Jennifer Amaro MD CHEMISTRY ORDBhargav JENNINGS Performing Organization Address City/[facility]/ZIP Co de Phone Number [facility] [place] [address] * (ABNORMAL) Uric acid (11/23/2015 8:40 AM EDT) Uric Acid 10.1(H) 3.5 - 8.5 mg/dL [facility] Blood specimen (specimen) 11/23/2015 8:40 AM EDT 11/23/2015 8:53 AM EDT Narrative Resulting Agency Comment Spec In Lab Jennifer Amaro MD CHEMISTRY ROCHELLE JENNINGS Performing Organization Address [facility] Co de Phone Number [facility] [place] [address] * (ABNORMAL) Comprehensive metabolic panel (non-fasting) (11/23/2015 8:40 AM EDT) Glucose 183 65 - 199 mg/dL [facility] Comment:Diabetes: >=200 mg/d L plus symptoms Blood Urea Nitrogen 26(H) 10 - 20 mg/dL [facility] Creatinine 2.27(H) 0.80 - 1.50 mg/dL [facility] Comment: Please note that the pediatric reference intervals supplied above were not validated at [facility]. Results from pediatric patients should be interpreted in conjunction to the patient's age, height and muscle mass. Sodium 141 135 - 145 mmol/L [facility] Potassium 4.8 3.5 - 5.0 mmol/L [facility] Comment: Please note: ??Patients with WBC >100,000 may have falsely elevated Potassium levels. ??For accurate Potassium quantification in these patients send serum separator tube (gold top) for subsequent determinations. ??Contact the Clinical Chemistry Laboratory if there are any questions. Chloride 104 98 - 107 mmol/L [facility] Carbon Dioxide 20(L) 22 - 31 mmol/L [facility] Anion Gap 17(H) 5 - 15 mmol/L [facility] Calcium 9.3 8.5 - 10.5 mg/dL [facility] Protein, Total 7.2 6.1 - 8.0 gm/dL [facility] Albumin 3.9 3.2 - 5.2 gm/dL [facility] Aspartate Aminotransferase 25 0 - 39 unit/L [facility] Alanine Aminotransferase 35 0 - 55 unit/L [facility] Alkaline Phosphatase 75 40 - 120 unit/L [facility] Bilirubin, Total 0.7 0.2 - 1.3 mg/dL [facility] Bilirubin, Direct 0.2 0.0 - 0.3 mg/dL [facility] Est Glomerular Filtration Rate 29(L) >=60 [facility] Comment: This [...] the following links into your internet browser. [email or web address] Blood specimen (specimen) 11/23/2015 8:40 AM EDT 11/23/2015 8:53 AM EDT Narrative Resulting Agency Comment Spec In Lab Jennifer Amaro MD CHEMISTRY ROCHELLE JENNINGS [facility] [place] [address] * Cholesterol, total (11/23/2015 8:40 AM EDT) Cholesterol, Total 142 <=199 mg/dL [facility] Comment: Recommendations of the NCEP Adult Treatment Panel for the following risk cutoff thresholds for the [place] population: Desirable: <200 mg/dL Borderline High: 200-239 mg/dL High: > or = 240 mg/dL Blood specimen (specimen) 11/23/2015 8:40 AM EDT 11/23/2015 8:53 AM EDT Narrative Resulting Agency Comment Spec In Lab Jennifer Amaro MD CHEMISTRY ROCHELLE JENNINGS Performing Organization Address City/State/[facility] Co de Phone Number [facility] [place] [address] documented in this encounter Visit Diagnoses Diagnosis H/O kidney transplant Kidney replaced by transplant documented in this encounter Care Teams Eligibility Clerk Relationship Specialty Start Date End Date Urbano Denis DO [address] [place] [address] PCP - General 09/03/12 03/17/22 Ruchi Valles RN Nurse Clinic Transplant Surgery 07/30/15 documented as of this encounter
--- OUTSIDE RECORDS SUMMARY | 2024-02-14 11:34 | XMS_ITS | Encounter Summary ---
Author Organization [facility] [place] [address] Care Team Providers Care Supervisor Chemical Name Role Phone Urbano Denis DO Primary Care Provider Encounter Details Date Type Department Care Team (Late st Contact Info) Description 11/21/2015 Telephone [place] [id number] Samia Escalante, RN Social History Tobacco Use [...] Telephone Encounter - Samia Escalante, RN - 11/21/2015 4:14 PM EDT Prograf Dose Adjustment Patient: Cody Gomez Yuan Date of Lab Test: 11/21/15 Prograf Level: 12.0ng/mL Previous Prograf Dose: 2mg BID New Prograf Dose: HOLD TONIGHT, then start on 1mg BID tomorrow morning Spoke with Cody Patricia Yuan to relay information about Prograf level and need to adjust dosing. Ptis aware of the result and repeated back adjustment in dosing. Pt is aware of the need for a repeatblood draw in one week's time and has proper orders to have this done. Pt understands plan of care. No additional questions or concerns. Samia Escalante, RN [facility] [place] Transplant [phone] (Pager: [phone]) documented in this encounter Plan of Treatment Upcoming Encounters Date Type Department Care Team (Late st Contact Info) Description 04/15/2024 10:00 AM EDT Hospital Encounter Non-Invasive [place] [address] Arrived documented as of this encounter Visit Diagnoses Not on filedocumented in this encounter Care Teams Supervisor Chemical Relationship Specialty Start Date End Date Urbano Denis DO [address] [place] [address] [address] [place] [address] PCP - General 09/03/12 03/17/22 Ruchi Valles RN Nurse Clinic Transplant Surgery 07/30/15 documented as of this encounter
--- OUTSIDE RECORDS SUMMARY | 2024-02-14 11:34 | XMS_ITS | Encounter Summary ---
Author Organization [facility] Address [facility] [place] [address] Care Team Providers Care Automatic Spreader Operator Name Role Phone Adeel Urbano KIRBY Primary Care Provider [phone] Reason for Visit * Reason Comments Immunotherapy Post Hospital Discharge Encounter Details Date Type Department Care Team (Late st Contact Info) Description 11/21/2015 10:30 AM EDT Office Visit [place] [address] Tal Eagle MD [facility] [place] [address] Kidney replaced by transplant; Aftercare following organ transplant; Enterococcal sepsis; Prophylactic immunotherapy; Chronic hepatitis C without hepatic coma Social [...] Sign Reading Time Taken Comments Blood Pressure 127/73 11/21/2015 11:40 AM EDT Pulse 63 11/21/2015 11:40 AM EDT Temperature 36.3 ??C (97.3 ??F) 11/21/2015 1 1:40 AM EDT Respiratory Rate - - Oxygen Saturation - - Inhaled Oxygen Concentration - - Weight 98.8 kg (217 lb 12.8 oz) 016 11:40 AM EDT Height - - Body Mass Index 31.25 11/20/2015 9:32 AM EDT documented in this encounter Progress Notes * Tal Eagle MD - 12/03/2015 1:59 PM EDT [facility] Transplant Nephrology Follow Up Date:?? Patient:?? Ethel Akins? Transplant Date:?? 09/16/2015?? Transplant organ/Indication: Kidney / DM, HTN History of Present Illness: Mr. Akins is a 65 yr old gentleman w/ hx of DM, HTN who is s/p donor kidney transplant 09/16/15. Patient presents to transplant clinic for follow up of his recent admit for enterococcal bacteremia/UTI/pyelo from November 11-. Previous tx hx: 0% PRA. Patient given Basliximab for induction. EBV +/+, CMV +/+ Interim Hx: Overall asymptomatic, double voiding due to finding of incr PVRs. Tolerating daptomycin without SEs. Scheduled for Hep C treatment January 03. Healthcare maintenance for a transplant recipient: Immunizations [...] for diabetics, every 5 for non diabetics [place] kidney ultrasound looking for renal cell CA, every 5 years post transplant Bone density assessment every 9-12 years post transplant Annual fasting lipid profile Annual PTH-Vit D3 assessment until normalized Annual 24 hour timed urine for creatinine, protein, calcium, phosphate, magnesium ROS: Denies fevers, chills, nausea, vomiting, diarrhea, abd pain, chest pain, sob. All other review of systems were neither positive or negative. Medications: Current Outpatient Prescriptions: ??? valGANciclovir (VALCYTE) 450 mg Tablet, Take 2 tablets by mouth daily for 183 days., Disp: 60 tablet, Rfl: 6 ??? Magnesium Gluconate 27 mg (500 mg) Tablet, Take 2 tablets by mouth 4 times daily., Disp: , Rfl: ??? tamsulosin (FLOMAX) 0.4 mg Capsule, Sust. Release 24 hr, Take 1 capsule by mouth nightly., Disp: 30 capsule, Rfl: 11 ??? calciTRIol (ROCALTROL) 0.5 mcg Capsule, Take 1 capsule by mouth daily., Disp: 30 capsule, Rfl: 11 ??? mycophenolate (CELLCEPT) 250 mg Capsule, Take 2 capsules by mouth 2 times daily. Kidney replaced by transplant 09/16/2015. Z94.0, Disp: 120 capsule, Rfl: 11 ??? potassium phosphate, monobasic, (K-PHOS ORIGINAL) 500 mg Tablet, Soluble, Take 1 tablet by mouth 2 times daily., Disp: 60 tablet, Rfl: 11 ??? tacrolimus (PROGRAF) 1 mg Capsule, Take 1 mg by mouth 2 times daily., Disp: , Rfl: ??? sulfamethoxazole-trimethoprim (BACTRIM;SEPTRA) 400-80 mg Tablet, Take 1 tablet by mouth daily for 364 days., Disp: 30 tablet, Rfl: 11 ??? levothyroxine (SYNTHROID) 75 mcg Tablet, Take 75 mcg by mouth daily., Disp: , Rfl: ??? acetaminophen (TYLENOL) 325 mg Tablet, Take 2 tablets by mouth every 4 hours as needed for Pain., Disp: 30 tablet, Rfl: 1 ??? polyethylene glycol (MIRALAX) 17 gram Powder in Packet, Take 17 g by mouth daily., Disp: 14 each, Rfl: 0 ??? DILTiazem (DILTIAZEM CD) 120 mg Capsule, Sust. Release 24 hr, Take 1 capsule by mouth daily., Disp: 30 capsule, Rfl: 11 ??? clopidogrel (PLAVIX) 75 mg Tablet, Take 1 tablet by mouth daily., Disp: 30 tablet, Rfl: 0 ??? ONE TOUCH ULTRA TEST Strip, , Disp: , Rfl: 0 ??? ONE TOUCH ULTRAMINI Kit, , Disp: , Rfl: 0 ??? ONE TOUCH DELICA LANCETS 30 gauge Misc, , Disp: , Rfl: 0 Allergies / ADRs: No Known Allergies Immunization History Administered Date(s) Administered ??? Hepatitis B Vaccine, unspecified formulation 04/16/2015, 05/14/2015, 06/20/2015 ??? Influenza PF, Split 06/04/2012, 05/26/2013 ??? Influenza Vaccine PF, Quadrivalent (6-35 Mos) 04/04/2015 ??? Pneumococcal Polyvalent 23 06/20/2014, 04/11/2015 ??? Td, adult 07/06/2000, 05/20/2011 ??? Zoster Vaccine, Live 07/17/2015 PHYSICAL EXAM: Vitals - LB/FT 11/21/2015 11/21/2015 B/P - Systolic 127 B/P - Diastolic 73 Pulse 63 Temperature 97.3 Respirations Height Weight 217 lb 12.8 oz BMI 31.25 kg/m2 Gen - AAO x 3 in NAD Skin - No exanthem. HEENT - Mucous membranes moist. ?? Chest: Lungs clear to ausculatation w/o wheezes/ rhonchi/ crackles. Heart - S1 and S2 clear w/o murmur, gallop, or rub. JVP not elevated. Abd - Soft. + BS. No bruit. Non tender. No organomegaly. Ext - Warm. No cyanosis. No dependent edema. Labs/ Imaging: Results for ETHEL AKINS ( ) as of 12/03/2015 13:57 Ref. Range 11/21/2015 10:00 WBC Latest Ref Range: 4.0 - 10.0 x10(3)/mcL 7.3 RBC Latest Ref Range: 4.63 - 6.08 x10(6)/mcL 4.25 (L) Hemoglobin Latest Ref Range: 13.7 - 17.5 gm/dL 13.5 (L) Hematocrit Latest Ref Range: 40.0 - 51.0 % 39.2 (L) MCV Latest Ref Range: 79.0 - 92.0 fL 92.2 (H) MCH Latest Ref Range: 25.6 - 32.2 pg 31.8 MCHC Latest Ref Range: 32.0 - 36.5 gm/dL 34.4 RDWSD Latest Ref Range: 35.0 - 46.0 fL 46.2 (H) RDWCV Latest Ref Range: 10.9 - 14.4 % 13.9 Platelets Latest Ref Range: 145 - 370 x10(3)/mcL 414 (H) MPV Latest Ref Range: 9.0 - 12.0 fL 9.6 Plat Immature % Latest Ref Range: 0.0 - 7.4 % 1.[address] % Latest Ref Range: 0.5 - 2.4 % 2.[address] Abs Latest Ref Range: 0.027 - 0.095 x10(6)/mcL 0.090 Immature Retic% Latest Ref Range: 2.3 - 15.9 % 2.3 Reticulated Hgb Latest Ref Range: 28.5 - 38.9 pg 36.8 nRBC % Auto Latest Units: % 0.0 nRBC Abs Auto Latest Ref Range: 0.000 - 0.012 x10(3)/mcL 0.000 Neutr Abs (ANC) Latest Ref Range: 1.50 - 6.30 x10(3)/mcL 4.80 Neutrophils % Latest Units: % 65.5 Immature Gran % Latest Units: % 8.20 Lymphocytes % Latest Units: % 16.6 Monocytes % Latest Units: % 6.9 Eosinophils % Latest Units: % 2.0 Basophils % Latest Units: % 0.8 Ayesha Gran Abs Latest Ref Range: 0.00 - 0.05 x10(3)/mcL 0.60 (H) Lymphocytes Abs Latest Ref Range: 1.0 - 3.6 x10(3)/mcL 1.2 Monocyte Abs Latest Ref Range: 0.2 - 1.0 x10(3)/mcL 0.5 Eosinophils Abs Latest Ref Range: 0.0 - 0.5 x10(3)/mcL 0.2 Basophils Abs Latest Ref Range: 0.0 - 0.2 x10(3)/mcL 0.1 Plat Estimate Unknown Increased RBC Morphology Unknown Normal Giant Platelets Latest Units: /HPF Less than 1 Sodium Latest Ref Range: 135 - 145 mmol/L 139 Potassium Latest Ref Range: 3.5 - 5.0 mmol/L 4.7 Chloride Latest Ref Range: 98 - 107 mmol/L 102 CO2 Latest Ref Range: 22 - 31 mmol/L 20 (L) Anion Gap Latest Ref Range: 5 - 15 mmol/L 17 (H) BUN Latest Ref Range: 10 - 20 mg/dL 26 (H) Creatinine Latest Ref Range: 0.80 - 1.50 mg/dL 2.33 (H) Estimated GFR Latest Ref Range: >=60 28 (L) Glucose Lvl Latest Ref Range: 65 - 199 mg/dL 163 Calcium Latest Ref Range: 8.5 - 10.5 mg/dL 9.2 Magnesium Latest Ref Range: 0.69 - 1.07 mmol/L 0.60 (L) Phosphorus Latest Ref Range: 2.5 - 4.5 mg/dL 2.8 Uric Acid Latest Ref Range: 3.5 - 8.5 mg/dL 10.2 (H) Total Protein Latest Ref Range: 6.1 - 8.0 gm/dL 7.4 Albumin Latest Ref Range: 3.2 - 5.2 gm/dL 4.0 Total Bilirubin Latest Ref Range: 0.2 - 1.3 mg/dL 0.7 Bili, Direct Latest Ref Range: 0.0 - 0.3 mg/dL 0.1 Alk Phos Latest Ref Range: 40 - 120 unit/L 74 AST Latest Ref Range: 0 - 39 unit/L 36 ALT Latest Ref Range: 0 - 55 unit/L 54 U Protein Ran Latest Ref Range: 0 - 12 mg/dL <6 Tacrolimus Lvl Latest Units: ng/mL 12.0 Color UA Latest Ref Range: Yellow Yellow Appearance UA Latest Ref Range: Clear Clear Spec [place] UA Latest Ref Range: 1.002 - 1.030 1.008 pH UA Latest Ref Range: 5.0 - 8.0 5.0 Protein UA Latest Ref Range: Negative mg/dL Negative Glucose UA Latest Ref Range: Negative mg/dL [...] Latest Ref Range: 0 - 3 /HPF 3 RBC UA Latest Ref Range: 0 - 3 /HPF 1 Culture Reflexed Unknown No U Creatinine Latest Units: mg/dL 73 Prot/Cre Ratio Latest Units: ratio <0.1 Impression/ Plan: Mr. Akins is a 65 yr old gentleman w/ hx of kidney transplant who presents to transplant clinic for f/u after being admitted for enterococcal bacteremia/pyelo and UTI. On daptomycin IV qd. 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 Instructed to drink more fluid goal x>3L fluids/day. - donor's weight x>200lbs Immunosuppression -Cellcept to 500mg BID -Dropped Prograf 2mg/2mg PO4/Mg - Kphos 500mg BID -Mag stable Hypertension BP 120's. No anti HTN Infectious prophylaxis -Valcyte to 450mg QDAY -Bactrim 1 tablet QDAY Positive urine BK viral copy numbers, negative blood so far incr hep C copy number as expected to see Dr. Marcelo early January for Rx Hep C documented in this encounter Plan of Treatment Upcoming Encounters Date Type Department Care Team (Late st Contact Info) Description 04/15/2024 10:00 AM EDT Hospital Encounter Non-In[place] [address] Arrived documented as of this encounter Procedures Procedure Name Priority Date/Time Associated Diagnosis Comments SCAN, PERIPHERAL BLOOD STAT 6 10:00 AM EDT NUCLEATED RED BLOOD CELLS STAT 11/21/2015 10:00 AM EDT HEMOGRAM STAT 11/21/2015 10:00 AM EDT Kidney replaced by transplant DIFFERENTIAL, AUTOMATED STAT 11/21/2015 10:00 AM EDT Kidney replaced by transplant GREEN TUBE HOLD STAT 11/21/2015 10:00 AM EDT TACROLIMUS LEVEL STAT 11/21/2015 10:0 0 AM EDT Kidney replaced by transplant PROTEIN/CREATININE RATIO, URINE STAT 11/21/2015 10:00 AM EDT Kidney replaced by transplant URINALYSIS WITH REFLEX CULTURE STAT 11/21/2015 10:00 AM EDT Kidney replaced by transplant RETICULOCYTE COUNT STAT 11/21/2015 10 :00 AM EDT Kidney replaced by transplant CBC (WITH DIFF) STAT 11/21/2015 10:00 AM EDT Kidney replaced by transplant URIC ACID STAT 11/21/2015 10:00 AM EDT Kidney replaced by transplant PHOSPHORUS STAT 11/21/2015 10:00 AM EDT Kidney replaced by transplant MAGNESIUM STAT 11/21/2015 10:00 AM EDT Kidney replaced by transplant COMPREHENSIVE METABOLIC PANEL STAT 11/21/2015 10:00 AM EDT Kidney replaced by transplant documented in this encounter Results * Nucleated Red Blood Cells (11/21/2015 10:00 AM EDT) NRBC% auto 0.0 % [facility] NRBC Absolute 0.000 0.000 - 0.012 x10(3)/mcL [facility] Blood specimen (specimen) 11/21/2015 10:00 AM EDT 11/21/2015 11:07 AM EDT Narrative Resulting Agency Comment Spec In Lab Tal Eagle MD HEMATOLOGY ORDERA BLES Performing Organization Address City/[facility]/ZIP Co de Phone Number [facility] [place] [address] * Scan, Peripheral Blood (11/21/2015 10:00 AM EDT) Plat estimate Increased [facility] RBC Morphology Normal [facility] Plat, Giant Less than 1 /HPF [facility] Blood specimen (specimen) 11/21/2015 10:00 AM EDT 11/21/2015 11:07 AM EDT Narrative Resulting Agency Comment Spec In Lab Tal Eagle MD HEMATOLOGY ORDERA BLES [facility] [place] [address] * Green Tube HOLD (11/21/2015 10:00 AM EDT) Pathologist [facility] Green Hold Sample in lab. [facility] Blood specimen (specimen) Venous Draw / Unknown 11/21/2015 10:00 AM EDT 11/21/2015 11:08 AM EDT Tal Eagle MD CHEMISTRY ORDERAB LES Performing Organization Address City/[facility] Co de Phone Number [facility] [place] [address] * (ABNORMAL) Differential, Automated (11/21/2015 10:00 AM EDT) [facility] Neutrophil % 65.5 % [facility] Neutrophil Absolute 4.80 1.50 - 6.30 x10(3)/mc L [facility] Lymph % 16.6 % [facility] Lymphocytes Abs 1.2 1.0 - 3.6 x10(3)/mc L [facility] Monocyte % 6.9 % [facility] Monocyte Abs 0.5 0.2 - 1.0 x10(3)/mc L [facility] Eos % 2.0 % [facility] Eosinophils Abs 0.2 0.0 - 0.5 x10(3)/mc L [facility] Basophil % 0.8 % [facility] Baso Absolute 0.1 0.0 - 0.2 x10(3)/mc L [facility] Immature Gran % 8.20 % [facility] Comment: Immature granulocytes(IG's)percentage and absolute count will include metamyelocytes, myelocytes, and promyelocytes. Blood smears from CBCs yielding IG's will be scanned manually for concordance. If this scan disagrees with the automated IG or if promyelocytes are noted, a manual differential will be performed. Immature Gran Absolute 0.60(H) 0.00 - 0.05 x10(3)/mc L [facility] Blood specimen (specimen) 11/21/2015 10:00 AM EDT 11/21/2015 11:07 AM EDT Narrative Resulting Agency Comment Spec In Lab Tal Eagle MD HEMATOLOGY ORDERA BLES [facility] [place] [address] * (ABNORMAL) Hemogram (11/21/2015 10:00 AM EDT) White Blood Cell 7.3 4.0 - 10.0 x10(3)/ L [facility] Red Blood Cell 4.25(L) 4.63 - 6.08 x10(6)/ L [facility] Hemoglobin 13.5(L) 13.7 - 17.5 gm/dL [facility] Hematocrit 39.2(L) 40.0 - 51.0 % [facility] Mean Cell Volume 92.2(H) 79.0 - 92.0 fL [facility] Mean Cell Hemoglobin 31.8 25.6 - 32.2 pg [facility] Mean Cell Hemoglobin Concentration 34.4 32.0 - 36.5 gm/dL [facility] Platelet 414(H) 145 - 370 x10(3)/ L [facility] RDW Standard Deviation 46.2(H) 35.0 - 46.0 fL [facility] RDW coefficient of variation 13.9 10.9 - 14.4 % [facility] Mean Platelet Volume 9.6 9.0 - 12.0 fL [facility] Blood specimen (specimen) 11/21/2015 10:00 AM EDT 11/21/2015 11:07 AM EDT Narrative Resulting Agency Comment Spec In Lab Tal Eagle MD HEMATOLOGY ORDERA BLES [facility] [place] [address] * Urinalysis with reflex Culture (11/21/2015 10:00 AM EDT) Glucose, Urine Dipstick Negative Negative mg/dL [facility] Protein, Urine Dipstick Negative Negative mg/dL [facility] [...] pH, Urn (dipstick) 5.0 5.0 - 8.0 [facility] Specific [place] Urine Automated 1.008 1.002 - 1.030 [facility] Color, Urine Dipstick Yellow Yellow [facility] RBC, Urine 1 0 - 3 /HPF [facility] WBC, Urine 3 0 - 3 /HPF [facility] Reflex to Culture No [facility] Urine specimen obtained by clean catch procedure (specimen) 11/21/2015 10:00 AM EDT 11/21/2015 10:59 AM EDT Narrative Resulting Agency Comment Spec In Lab Tal Eagle MD URINE ORDERABLES [facility] [place] [address] * (ABNORMAL) Uric acid (11/21/2015 10:00 AM EDT) Pathologist [facility] Uric Acid 10.2(H) 3.5 - 8.5 mg/dL [facility] Blood specimen (specimen) 11/21/2015 10:00 AM EDT 11/21/2015 11:07 AM EDT Narrative Resulting Agency Comment Spec In Lab Tal Eagle MD CHEMISTRY ORDERAB LES Performing Organization Address City/[facility]/ZIP Co de Phone Number [facility] [place] [address] * Tacrolimus level (11/21/2015 10:00 AM EDT) Pathologist [facility] Tacrolimus 12.0 ng/mL [facility] Comment:Trough therapeutic: 5-15 ng/mL Blood specimen (specimen) 11/21/2015 10:00 AM EDT 11/21/2015 1:49 PM EDT Narrative Resulting Agency Comment Spec In Lab Tal Eagle MD CHEMISTRY ORDERAB LES Performing Organization Address [facility] Co de Phone Number [facility] [place] [address] * Reticulocyte Count (11/21/2015 10:00 AM EDT) [facility] Reticulocyte % 2.2 0.5 - 2.4 % [facility] Retic Abs # 0.090 0.027 - 0.095 x10(6)/mcL [facility] Immature Retic% 2.3 2.3 - 15.9 % [facility] Reticulated Hgb 36.8 28.5 - 38.9 pg [facility] Immature Plt % 1.0 0.0 - 7.4 % [facility] Blood specimen (specimen) 11/21/2015 10:00 AM EDT 11/21/2015 11:07 AM EDT Narrative Resulting Agency Comment Spec In Lab Tal Eagle MD HEMATOLOGY ORDERA BLES Performing Organization Address City/[facility]/ZIP Co de Phone Number [facility] [place] [address] * Protein/Creatinine Ratio, urine (11/21/2015 10:00 AM EDT) Creatinine, Urine 73 mg/dL [facility] Protein, Urine <6 0 - 12 mg/dL [facility] Protein / Creatinine Ratio, Urine <0.1 ratio [facility] Urine specimen (specimen) 11/21/2015 10:00 AM EDT 11/21/2015 10:59 AM EDT Narrative Resulting Agency Comment Spec In Lab Tal Eagle MD URINE ORDERABLES Performing Organization Address City/[facility]/ZIP Co de Phone Number [facility] [place] [address] * Phosphorus (11/21/2015 10:00 AM EDT) Phosphorus 2.8 2.5 - 4.5 mg/dL [facility] Blood specimen (specimen) 11/21/2015 10:00 AM EDT 11/21/2015 11:07 AM EDT Narrative Resulting Agency Comment Spec In Lab Tal Eagle MD CHEMISTRY ORDERAB LES Performing Organization Address City/[facility]/ZIP Co de Phone Number [facility] [place] [address] * (ABNORMAL) Magnesium (11/21/2015 10:00 AM EDT) Magnesium 0.60(L) 0.69 - 1.07 mmol/L [facility] Blood specimen (specimen) 11/21/2015 10:00 AM EDT 11/21/2015 11:07 AM EDT Narrative Resulting Agency Comment Spec In Lab Tal Eagle MD CHEMISTRY ORDERAB LES [facility] [place] [address] * (ABNORMAL) Comprehensive metabolic panel (non-fasting) (11/21/2015 10:00 AM EDT) Glucose 163 65 - 199 mg/dL [facility] Comment:Diabetes: >=200 mg/d L plus symptoms Blood Urea Nitrogen 26(H) 10 - 20 mg/dL [facility] Creatinine 2.33(H) 0.80 - 1.50 mg/dL [facility] Comment: Please note that the pediatric reference intervals supplied above were not validated at [facility]. Results from pediatric patients should be interpreted in conjunction to the patient's age, height and muscle mass. Sodium 139 135 - 145 mmol/L [facility] Potassium 4.7 3.5 - 5.0 mmol/L [facility] Comment: Please note: ??Patients with WBC >100,000 may have falsely elevated Potassium levels. ??For accurate Potassium quantification in these patients send serum separator tube (gold top) for subsequent determinations. ??Contact the Clinical Chemistry Laboratory if there are any questions. Chloride 102 98 - 107 mmol/L [facility] Carbon Dioxide 20(L) 22 - 31 mmol/L [facility] Anion Gap 17(H) 5 - 15 mmol/L [facility] Calcium 9.2 8.5 - 10.5 mg/dL [facility] Protein, Total 7.4 6.1 - 8.0 gm/dL [facility] Albumin 4.0 3.2 - 5.2 gm/dL [facility] Aspartate Aminotransferase 36 0 - 39 unit/L [facility] Alanine Aminotransferase 54 0 - 55 unit/L [facility] Alkaline Phosphatase 74 40 - 120 unit/L [facility] Bilirubin, Total 0.7 0.2 - 1.3 mg/dL [facility] Bilirubin, Direct 0.1 0.0 - 0.3 mg/dL [facility] Est Glomerular Filtration Rate 28(L) >=60 [facility] [...] the following links into your internet browser. [email or web address] Blood specimen (specimen) 11/21/2015 10:00 AM EDT 11/21/2015 11:07 AM EDT Narrative Resulting Agency Comment Spec In Lab Tal Eagle MD [place] [address] documented in this encounter Visit Diagnoses Diagnosis Kidney replaced by transplant Aftercare following organ transplant Enterococcal sepsis Streptococcal septicemia Prophylactic immunotherapy Need for prophylactic immunotherapy Chronic hepatitis C without hepatic coma documented in this encounter Care Teams Automatic Spreader Operator Relationship Specialty Start Date End Date Urbano Denis DO [address] [place] [address] PCP - General 09/03/12 03/17/22 uRchi Valles RN Nurse Clinic Transplant Surgery 07/30/15 documented as of this encounter
--- OUTSIDE RECORDS SUMMARY | 2024-02-14 11:34 | XMS_ITS | Encounter Summary ---
[facility] Organization [facility] [place] [address] Care Team Providers Care Disaster Recovery Consultant Name Role Phone [place] Denis DO Primary Care Provider [phone] Reason for Visit * Auth/Cert Specialty Diagnoses / Procedures Referred By Humberto t Referred To Contact Diagnoses RAY (acute kidney injury) CREATINE RISE S/P RENAL TRANPLANT Referral ID Status Reason Start Date Expiration Date Visits Re quested Visits Authorized [id number] 1 1 Encounter Details Date Type Department Care Team (Latest Contact Info) Description 11/27/2015 11:39 AM EDT - 11/28/2015 2:18 PM EDT Hospital Encounter [address] [place] [address] Madhu Eagle MD [facility] [place] [address] Discharge Disposition: Home Social History Tobacco Use [...] Sign Reading Time Taken Comments Blood Pressure 150/72 11/28/2015 11:50 AM EDT Pulse 62 11/28/2015 11:50 AM EDT Temperature 36.6 ??C (97.9 ??F) 11/28/2015 11:50 AM E DT Respiratory Rate 16 11/28/2015 11:50 AM EDT Oxygen Saturation 98% 11/28/2015 11:50 AM EDT Inhaled Oxygen Concentration - - Weight 95 kg (209 lb 7 oz) 11/28/2015 6:24 AM ED T Height 177.8 cm (5' 10) 11/28/2015 6:24 AM EDT Body Mass Index 30.05 11/28/2015 6:24 AM EDT documented in this encounter Discharge Summaries * Madhu Eagle MD - 11/28/2015 10:02 AM EDT Inpatient - Discharge Summary Patient Name: Ethel Akins Patient Age: 65 y.o. Birthdate: 1950 Admit date: 11/27/2015 Discharge date and time: 11/28/2015 Attending Physician: Madhu Eagle MD Primary Diagnosis: RAY Secondary Diagnosis: Active Hospital Problems Diagnosis ??? RAY (acute kidney injury) Resolved Hospital Problems Diagnosis Date Resolved No resolved problems to display. Active Non-Hospital Problems Diagnosis ??? Kidney transplant infection ??? Renal failure ??? Chronic kidney disease, stage V ??? HCV (hepatitis C virus) ??? ESRD (end stage renal disease) ??? Hepatitis C virus infection ??? Essential hypertension ??? CGN (chronic glomerulonephritis) ??? DM type 2 (diabetes mellitus, type 2) ??? Hypertension ??? DJD (degenerative joint disease) ??? Hematuria HPI: Ethel Akins is a 65 y.o. male w/ history hep C, past CVA on plavix, ESRD due to hypertension,s/p DDKT on 09/16/15, who presents to clinic today for his regular follow-up appointment. Patient was most recently discharged from the hospital on 11/16/15 after treatment for VRE UTI. On subsequent follow-up visit, patient was found to have elevated Cr to 2.3 and significantly elevated Prograf level, for which his Prograf was held for a few days then restarted at a lower dose. His Cr improved slightly on follow-up, with Prograf level at goal at 9.0. Patient's labs today show elevated Cr to 2.83 (baseline 1.3). At this time, patient reports no new complaints, including fevers, chills, SOB, chest pain, abd pain, dysuria, weakness numbness or tingling. He states that he has diligently tried to keep up with his fluid intake, up to 100oz a day. He is unclear why his Cr is elevated today, as he feels well overall. Operations/Major Procedures: Operations: * No surgery found * * Surgery not found *: Hospital Course: Ethel Akins was admitted to the floor and resuscitated with fluids. His UOP was excellent. Patient otherwise was asymptomatic, afebrile, with no complaints. He underwent a renal US, which showed good flow globally to his graft, though mild pelvicaliectasis was also noted. Patient was encouraged to take in adequate fluid intake upon discharge. Patient's creatinine had improved on subsequent lab. It was felt that the patient was safe for discharge home on hospital day 1. Pending Lab Data at Discharge: none Condition at Discharge: Stable Important Studies and Lab Data: Labs: Recent Results (from the past 24 hour(s)) Basic Metabolic Panel (non-fasting) Result Value Ref Range Glucose Lvl 149 65 - 199 mg/dL BUN 26 (H) 10 - 20 mg/dL Creatinine 2.30 (H) 0.80 - 1.50 mg/dL Sodium 145 135 - 145 mmol/L Potassium 4.1 3.5 - 5.0 mmol/L Chloride 108 (H) 98 - 107 mmol/L CO2 22 22 - 31 mmol/L Anion Gap 15 5 - 15 mmol/L Calcium 9.3 8.5 - 10.5 mg/dL Estimated GFR 28 (L) >=60 Magnesium Result Value Ref Range Magnesium 0.54 (L) 0.69 - 1.07 mmol/L Phosphorus Result Value Ref Range Phosphorus 3.4 2.5 - 4.5 mg/dL Hemogram Result Value Ref Range WBC 5.2 4.0 - 10.0 x10(3)/mcL RBC 3.96 (L) 4.63 - 6.08 x10(6)/mcL Hemoglobin 12.6 (L) 13.7 - 17.5 gm/dL Hematocrit 36.4 (L) 40.0 - 51.0 % MCV 91.9 79.0 - 92.0 fL MCH 31.8 25.6 - 32.2 pg MCHC 34.6 32.0 - 36.5 gm/dL Platelets 307 145 - 370 x10(3)/mcL RDWSD 48.7 (H) 35.0 - 46.0 fL RDWCV 14.4 10.9 - 14.4 % MPV 9.2 9.0 - 12.0 fL Differential, Automated Result Value Ref Range Neutrophils % 65.7 % Neutr Abs (ANC) 3.39 1.50 - 6.30 x10(3)/mcL Lymphocytes % 21.7 % Lymphocytes Abs 1.1 1.0 - 3.6 x10(3)/mcL Monocytes % 5.6 % Monocyte Abs 0.3 0.2 - 1.0 x10(3)/mcL Eosinophils % 3.3 % Eosinophils Abs 0.2 0.0 - 0.5 x10(3)/mcL Basophils % 2.3 % Basophils Abs 0.1 0.0 - 0.2 x10(3)/mcL Immature Gran % 1.40 % Ayesha Gran Abs 0.07 (H) 0.00 - 0.05 x10(3)/mcL Green Tube HOLD Result Value Ref Range Green Hold Sample in lab. Studies: Renal transplant 11/27/15 IMPRESSION Impression Transplant Kidney Summary 1. Interval slight increase in mild pelvicaliectasis of the transplant kidney with persistent mild dilatation of the visualized proximal ureter. No perinephric collections identified. 2. Normal renal cortical echogenicity. 3. Normal intrarenal resistive indices. 4. Interrogated portions of the main renal artery and vein are patent. Exam: Temp: [36.6 ??C (97.9 ??F)-36.9 ??C (98.4 ??F)] Heart Rate: [62-72] Resp: [16-18] BP: (152-180)/(69-86) SpO2: [96 %-98 %] I/O last 3 completed shifts: In: 4830 [P.O.:2250; I.V.:2580] Out: 8265 [Urine:8265] Gen: alert oriented conversant quite pleasant, sitting in chair at bedside Neuro: non focal, CN 2-12 grossly intact, motor sensory grossly intact CV: RRR Pulm: CTAB GI: soft non-tender non distended, well healed incision : voiding spontaneously Ext: warm well perfused Discharge to: Home Discharge Conditions/Prognosis: Stable Discharge Medications: Your Medications Continued medications, unchanged Dose Details acetaminophen 325 [...] Tbso Commonly known as: K-PHOS ORIGINAL Take 1 tablet by mouth 2 times daily. 500 mg Quantity: 60 tablet Refills: 11 sulfamethoxazole-trimethoprim 400-80 [...] mg Tab Commonly known as: VALCYTE Take 2 tablets by mouth daily for 183 days. 900 mg Quantity: 60 tablet Refills: 6 Updated Allergies/ADRs: No Known Allergies Follow-up Recommendations for Providers: None PCP: ALBANIA DENIS DO Scheduled Appointments: Future Appointments Date Time Provider Department Center 12/04/2015 7:55 AM LAB, THREE L [facility] 12/04/2015 8:30 AM TRANSPLANT, COORDINATOR [facility] 12/04/2015 9:00 AM Madhu Eagle MD Le[facility] 12/11/2015 9:30 AM [facility] 12/11/2015 10:30 AM Madhu Eagle MD Leb Trans 2[facility] 01/03/2016 10:00 AM LAB, THREE L Lab 3L [facility] 01/03/2016 11:00 AM Tulio Marcelo MD Leb Gastro [facility] 01/03/2016 3:30 PM Byron Brown MD Leb Cardio [facility] 09/15/2016 9:00 AM LAB, THREE L Lab 3L [facility] 09/15/2016 10:00 AM Madhu Eagle MD Leb [...] level of your immunosuppression, which is dangerous. Please make sure to drink adequate amount of fluids (3~4L) everyday after going home. Orders for After Discharge: LAB DRAWS: Prior [...] Department anytime (day, night, weekend, holiday) at [phone] . After hours, please follow the instructions on the message. You can also reach the yard coordinator after hours by calling (ask for the yard coordinator on-call). General Instructions None Provider Contact Information: [phone] Signed: JOANIE DANG MD 11/28/2015 I reviewed all of the above findings and assessment of Dr. Dang, examined the patient and formulatedthe recommendations which accurately reflect mine. documented in this encounter Discharge Instructions * Patient Instructions* Joanie Dang MD - 11/28/2015 8:18 AM EDT Notify the transplant team of [...] level of your immunosuppression, which is dangerous. Please make sure to drink adequate amount of fluids (3~4L) everyday after going home. Orders for After Discharge: LAB DRAWS: Prior [...] the message. You can also reach the yard coordinator after hours by calling (ask for the yard coordinator on-call). documented in this encounter Medications at Time of Discharge Medication Sig Dispensed Refills Start Date End Date valGANciclovir (VALCYTE) 450 mg Tablet Take 2 tablets by mouth daily for 183 days. 60 tablet 6 11/16/2015 12/04/2015 Magnesium Gluconate 27 mg (500 mg) Tablet [...] 09/16/2015. Z94.0 120 capsule 11 11/08/2015 01/03/2016 potassium phosphate, monobasic, (K-PHOS ORIGINAL) 500 mg Tablet, Soluble Take 1 tablet by mouth 2 times daily. 60 tablet 11 11/08/2015 12/04/2015 tacrolimus (PROGRAF) 1 mg Capsule Take 1 [...] Progress Notes * Malina Phelan RN - 11/28/2015 2:32 PM EDT Record reviewed and patient discussed with multidisciplinary team. No discharge needs identified atthis time. Stock Worker And Deliverer remains available as needed for coordination of care and discharge planning. Code 44 letter unsigned as patient had already discharged for home. * Margarette Scott RN - 11/28/2015 1:56 PM EDT Mr. Akins had a good shift. PICC line removed by IV team. Lab results returned, discharge order obtained. AVS reviewed with patient and his who reported questions about medication regiment. They were in a parks to leave and reported that they would call yard coordinator with questions.Follow up appointments and care of PICC site reviewed with patient and who report understanding. Patient left with staff to meet with at [facility]. * Ran Clement RN - 11/28/2015 8:16 AM EDT Patient Guidelines for Self-Care after PICC (Peripherally Inserted Central Catheter) Removal Your PICC was removed on 11/28/2015 at 0800 An antibiotic ointment was applied to the insertion site (where the PICC went into your skin). ___x___Betadine ointment was used (a dark reddish brown [...] not stop, call or seek medical attention. documented in this encounter H&P Notes * Joanie Dang MD - 11/27/2015 11:55 AM EDT [facility] Department of Transplant Surgery Inpatient Admission Note CC: RAY HPI: Ethel Akins is a 65 y.o. male w/ history hep C, past CVA on plavix, ESRD due to hypertension,s/p DDKT on 09/16/15, who presents to clinic today for his regular follow-up appointment. Patient was most recently discharged from the hospital on 11/16/15 after treatment for VRE UTI. On subsequent follow-up visit, patient was found to have elevated Cr to 2.3 and significantly elevated Prograf level, for which his Prograf was held for a few days then restarted at a lower dose. His Cr improved slightly on follow-up, with Prograf level at goal at 9.0. Patient's labs today show elevated Cr to 2.83 (baseline 1.3). At this time, patient reports no new complaints, including fevers, chills, SOB, chest pain, abd pain, dysuria, weakness numbness or tingling. He states that he has diligently tried to keep up with his fluid intake, up to 100oz a day. He is unclear why his Cr is elevated today, as he feels well overall. PM/SH: Past Medical History Diagnosis Date ??? [...] EXTREMITY performed by Que Amaro MD at [facility] MA[facility] OR ??? Pro transplantation of kidney N/A 09/16/2015 @KIDNEY TRANSPLANT, WITHOUT RECIPIENT NEPHRECTOMY performed by Franko Larkin MD at [facility] MA[facility] OR ??? Pro transplant, prep cadaver renal graft N/A 09/16/2015 @PREPARATION CADAVERIC RENAL ALLOGRAFT performed by Franko Larkin MD at [facility] MA[facility] OR ??? N/A 09/16/2015 ORGAN ACQUISITION RENAL, CADAVERIC performed by Franko Larkin MD at [facility] MA[facility] OR ALL: No Known Allergies MED: [...] system review is negative Physical Exam: Temp: [36.3 ??C (97.4 ??F)] Heart Rate: [73] Resp: -- BP: (161)/(72) SpO2: -- Gen: alert oriented conversant quite pleasant, sitting in chair CV: RRR Pulm: CTAB GI: soft non-tender non distended, well healed incision : voiding spontaneously Ext: warm well perfused, IV infusing in R arm Recent Results (from the past 24 hour(s)) [...] Negative mcL Appearance UA Clear Clear Spec [place] UA 1.006 1.002 - 1.030 Color UA Straw Yellow RBC UA 1 0 - 3 /HPF WBC UA 1 0 - 3 /HPF Culture Reflexed No Cholesterol, total Result Value Ref Range Chol, Total 152 <=199 mg/dL Comprehensive metabolic panel (non-fasting) Result Value Ref Range Glucose Lvl 145 65 - 199 mg/dL BUN 37 (H) 10 - 20 mg/dL Creatinine 2.83 (H) 0.80 - 1.50 mg/dL Sodium 141 135 - 145 mmol/L Potassium 4.5 3.5 - 5.0 mmol/L Chloride 104 98 - 107 mmol/L CO2 20 (L) 22 - 31 mmol/L Anion Gap 17 (H) 5 - 15 mmol/L Calcium 9.5 8.5 - 10.5 mg/dL Total Protein 7.4 6.1 - 8.0 gm/dL Albumin 4.0 3.2 - 5.2 gm/dL AST 30 0 - 39 unit/L ALT 28 0 - 55 unit/L Alk Phos 73 40 - 120 unit/L Total Bilirubin 0.8 0.2 - 1.3 mg/dL Bili, Direct 0.2 0.0 - 0.3 mg/dL Estimated GFR 22 (L) >=60 Magnesium Result Value Ref Range Magnesium 0.61 (L) 0.69 - 1.07 mmol/L Phosphorus Result Value Ref Range Phosphorus 3.8 2.5 - 4.5 mg/dL Uric acid Result Value Ref Range Uric Acid 10.4 (H) 3.5 - 8.5 mg/dL Reticulocyte Count Result Value Ref Range Retic Ct % 1.5 0.5 - 2.4 % Retic Ct Abs 0.060 0.027 - 0.095 x10(6)/mcL Immature Retic% 2.2 (L) 2.3 - 15.9 % Reticulated Hgb 33.1 28.5 - 38.9 pg Plat Immature % 1.1 0.0 - 7.4 % Hemogram Result Value Ref Range WBC 6.5 4.0 - 10.0 x10(3)/mcL RBC 4.12 (L) 4.63 - 6.08 x10(6)/mcL Hemoglobin 13.3 (L) 13.7 - 17.5 gm/dL Hematocrit 37.9 (L) 40.0 - 51.0 % MCV 92.0 79.0 - 92.0 fL MCH 32.3 (H) 25.6 - 32.2 pg MCHC 35.1 32.0 - 36.5 gm/dL Platelets 349 145 - 370 x10(3)/mcL RDWSD 48.3 (H) 35.0 - 46.0 fL RDWCV 14.4 10.9 - 14.4 % MPV 9.1 9.0 - 12.0 fL Differential, Automated Result Value Ref Range Neutrophils % 70.3 % Neutr Abs (ANC) 4.59 1.50 - 6.30 x10(3)/mcL Lymphocytes % 20.0 % Lymphocytes Abs 1.3 1.0 - 3.6 x10(3)/mcL Monocytes % 4.0 % Monocyte Abs 0.3 0.2 - 1.0 x10(3)/mcL Eosinophils % 2.4 % Eosinophils Abs 0.2 0.0 - 0.5 x10(3)/mcL Basophils % 1.2 % Basophils Abs 0.1 0.0 - 0.2 x10(3)/mcL Immature Gran % 2.10 % Ayesha Gran Abs 0.14 (H) 0.00 - 0.05 x10(3)/mcL Green Tube HOLD Result Value Ref Range Green Hold Sample in lab. Assessment and Plan: 65yo M patient with multiple co-morbidities including ESRD secondary to HTN now 10 weeks s/p DDKT, presenting today with RAY (Cr 2.8) in the setting of recent VRE UTI treated with IV daptomycin as well as Prograf toxicity, possibly now exacerbated by dehydration, though exact etiology remains unclear at this time. There is no sign of active infection, and U/A is negative. Will admit patient to the transplant service for further monitoring and care. Immunosuppression regimen Cellcept 500mg BID Prograf 1mg BID - 2L bolus NS in clinic (currently infusing) - MIVF at 150cc/hr - Bactrim, valganciclovir ppx - last dose of IV daptomycin - AM prograf trough f/u - renal diet - daily CBC, lytes, monitor closely - renal US tomorrow - admit to 4W Patient seen, plan formulated in conjunction with attending transplant surgeon Dr. Sondra DANG MD 11/27/2015 documented in this encounter Miscellaneous Notes * Plan of Care - Sandra Dodd RN - 11/28/2015 3:00 AM EDT Problem: General Plan of Care Goal: Plan of Care Review Outcome: Ongoing (Interventions Implemented as Appropriate) 11/28/15 0252 Plan of Care Review Plan of Care Outcome Status ongoing (interventions implemented as appropriate) Progress improving Coping/Psychosocial Response Interventions Plan of Care Reviewed with patient OUTCOME EVALUATION NOTE: OUTCOME SUMMARY: Yash started the night frustrated because he needed to void frequently. Whaley offered by Dr. Escalante,which pt ultimately declined after fluids were turned off. Frequency of voids has subsided, but pt continues to put out large amounts of clear light urine. Yash reports being very comfortable otherwise and was able to rest overnight. PLAN MOVING FORWARD: Continue to monitor UOP and creatinine. Mobilize during day hours. Renal duplex today. INDIVIDUALIZED FALL PREVENTION INTERVENTIONS: Patient-specific fall risk factors per assessment: [current deficits]: None. Assistance [level of assistance required for transfers and ambulation]: Yash can mobilize independently. Supervision [direct monitoring required during toileting and ADLs]: Eyes on only because he was admitted <24h ago. Surveillance [continuous indirect monitoring]: Bed alarm, purposeful rounding. Call robles in reach. Patient-specific fall prevention interventions for sensory deficits provided, if applicable: N/A CPG GOAL OUTCOME EVALUATION: Yash was very uncomfortable this evening d/t needing to void 5-6 times/hr. IVF stopped, pt is now comfortable. Goal: Individualization and Mutuality Outcome: Ongoing (Interventions Implemented as Appropriate) 11/28/15251 Individualization Patient Specific Preferences Call me Yash Patient Specific Goals get rest tonight Goal: Infection Control Outcome: Ongoing (Interventions Implemented as Appropriate) 11/28/15251 Safety Interventions Isolation Precautions standard precautions maintained Goal: Discharge Needs Assessment Outcome: Ongoing (Interventions Implemented as Appropriate) 11/28/15251 Discharge Needs Assessment Concerns to be Addressed no discharge needs identified Equipment Needed After Discharge (? home w PICC) Current Health Anticipated Changes Related to Illness none Self-Care Equipment Currently Used at Home medication pump;other (see comments) (Picc for IV abx) Living Environment Transportation Available car;family or friend will provide Problem: Kidney Transplant Recipient (Adult) Goal: Signs and symptoms of listed potential problems will be absent or manageable (reference (Kidney Transplant Recipient (Adult)) CPG) Outcome: Ongoing (Interventions Implemented as Appropriate) 11/28/15251 Kidney Transplant Recipient Problems Assessed (Kidney Transplant) all Problems Present (Kidney Transplant) none documented in this encounter Plan of Treatment Upcoming Encounters Date Type Department Care Team (Late st Contact Info) Description 04/15/2024 10:00 AM EDT Hospital Encounter [place] [address] Arrived documented as of this encounter Procedures Procedure Name Priority Date/Time Associated Diagnosis Comments HEMOGRAM Routine 11/28/2015 7:58 AM EDT DIFFERENTIAL, AUTOMATED Routine 11/28/2015 7:58 AM EDT GREEN TUBE HOLD Routine 11/28/2015 7:58 AM EDT TACROLIMUS LEVEL Routine 11/28/2015 7:58 AM EDT CBC (WITH DIFF) Routine 11/28/2015 7:58 AM EDT PHOSPHORUS Routine 11/28/2015 7:58 AM EDT MAGNESIUM Routine 11/28/2015 7:58 AM EDT BASIC METABOLIC PANEL Routine 11/28/2015 7:58 AM EDT XR CHEST ONE VIEW STAT 11/27/2015 2:4 6 PM EDT US RENAL TRANSPLANT LEFT Routine 11/27/2015 2:30 PM EDT documented in this encounter Results * Green Tube HOLD (11/28/2015 7:58 AM EDT) Pathologist [facility] Green Hold Sample in lab. [facility] Blood specimen (specimen) Venous Draw / Unknown 11/28/2015 7:58 AM EDT 11/28/2015 7:59 AM EDT Madhu Eagle MD CHEMISTRY ORDERAB LES Performing Organization Address City/State/[facility] Co de Phone Number [facility] [place] [address] * (ABNORMAL) Differential, Automated (11/28/2015 7:58 AM EDT) Neutrophil % 65.7 % [facility] Neutrophil Absolute 3.39 1.50 - 6.30 x10(3)/mc L [facility] Lymph % 21.7 % [facility] Lymphocytes Abs 1.1 1.0 - 3.6 x10(3)/mc L [facility] Monocyte % 5.6 % [facility] Monocyte Abs 0.3 0.2 - 1.0 x10(3)/[facility] Eos % 3.3 % [facility] Eosinophils Abs 0.2 0.0 - 0.5 x10(3)/[facility] Basophil % 2.3 % [facility] Baso Absolute 0.1 0.0 - 0.2 x10(3)/[facility] Immature Gran % 1.40 % [facility] Comment: Immature granulocytes(IG's)percentage and absolute count will include metamyelocytes, myelocytes, and promyelocytes. Blood smears from CBCs yielding IG's will be scanned manually for concordance. If this scan disagrees with the automated IG or if promyelocytes are noted, a manual differential will be performed. Immature Gran Absolute 0.07(H) 0.00 - 0.05 x10(3)/[facility] Blood specimen (specimen) 11/28/2015 7:58 AM EDT 11/28/2015 7:58 AM EDT Narrative Resulting Agency Comment Spec In Lab Madhu Eagle MD HEMATOLOGY ORDERA BLES [facility] [place] [address] * (ABNORMAL) Hemogram (11/28/2015 7:58 AM EDT) White Blood Cell 5.2 4.0 - 10.0 x10(3)/[facility] Red Blood Cell 3.96(L) 4.63 - 6.08 x10(6)/[facility] Hemoglobin 12.6(L) 13.7 - 17.5 gm/dL [facility] Hematocrit 36.4(L) 40.0 - 51.0 % [facility] Mean Cell Volume 91.9 79.0 - 92.0 fL [facility] Mean Cell Hemoglobin 31.8 25.6 - 32.2 pg [facility] Mean Cell Hemoglobin Concentration 34.6 32.0 - 36.5 gm/dL [facility] Platelet 307 145 - 370 x10(3)/mc L [facility] RDW Standard Deviation 48.7(H) 35.0 - 46.0 fL [facility] RDW coefficient of variation 14.4 10.9 - 14.4 % [facility] Mean Platelet Volume 9.2 9.0 - 12.0 fL [facility] Blood specimen (specimen) 11/28/2015 7:58 AM EDT 11/28/2015 7:58 AM EDT Narrative Resulting Agency Comment Spec In Lab Madhu Eagle MD HEMATOLOGY ORDERA BLES Performing Organization Address [facility] de Phone Number [facility] [place] [address] * Tacrolimus level (11/28/2015 7:58 AM EDT) Tacrolimus 5.2 ng/mL [facility] Comment:Trough therapeutic: 5-15 ng/mL Blood specimen (specimen) 11/28/2015 7:58 AM EDT 11/28/2015 9:09 AM EDT Narrative Resulting Agency Comment Spec In Lab Madhu Eagle MD CHEMISTRY ORDERAB LES Performing Organization Address [facility] Co de Phone Number [facility] [place] [address] * Phosphorus (11/28/2015 7:58 AM EDT) Phosphorus 3.4 2.5 - 4.5 mg/dL [facility] Blood specimen (specimen) 11/28/2015 7:58 AM EDT 11/28/2015 7:58 AM EDT Narrative Resulting Agency Comment Spec In Lab Madhu Eagle MD CHEMISTRY ORDERAB LES [facility] [place] [address] * (ABNORMAL) Magnesium (11/28/2015 7:58 AM EDT) [facility] Magnesium 0.54(L) 0.69 - 1.07 mmol/L [facility] Blood specimen (specimen) 11/28/2015 7:58 AM EDT 11/28/2015 7:58 AM EDT Narrative Resulting Agency Comment Spec In Lab Madhu Eagle MD CHEMISTRY ORDERAB LES Performing Organization Address [facility] Co de Phone Number [facility] [place] [address] * (ABNORMAL) Basic Metabolic Panel (non-fasting) (11/28/2015 7:58 AM EDT) [facility] Glucose 149 65 - 199 mg/dL [facility] Comment:Diabetes: >=200 mg/d L plus symptoms Blood Urea Nitrogen 26(H) 10 - 20 mg/dL [facility] Creatinine 2.30(H) 0.80 - 1.50 mg/dL [facility] Comment: Please note that the pediatric reference intervals supplied above were not validated at [facility] [facility]. Results from pediatric patients should be interpreted in conjunction to the patient's age, height and muscle mass. Sodium 145 135 - 145 mmol/L [facility] Potassium 4.1 3.5 - 5.0 mmol/L [facility] Comment: Please note: ??Patients with WBC >100,000 may have falsely elevated Potassium levels. ??For accurate Potassium quantification in these patients send serum separator tube (gold top) for subsequent determinations. ??Contact the Clinical Chemistry Laboratory if there are any questions. Chloride 108(H) 98 - 107 mmol/L [facility] Carbon Dioxide 22 22 - 31 mmol/L [facility] Anion Gap 15 5 - 15 mmol/L [facility] Calcium 9.3 8.5 - 10.5 mg/dL [facility] Est Glomerular Filtration Rate 28(L) >=60 [facility] Comment: This [...] the following links into your internet browser. [email or web address] Blood specimen (specimen) 11/28/2015 7:58 AM EDT 11/28/2015 7:58 AM EDT Narrative Resulting Agency Comment Spec In Lab Madhu Eagle MD CHEMISTRY ORDERAB LES [facility] [place] [phone] * XR Chest Pa or AP- 1 View (11/27/2015 2:46 PM EDT) Anatomical Region Laterality Modality Chest N/A Digital Radiogra phy Narrative 11/27/2015 2:56 PM EDT EXAMINATION: XR CHEST PA OR AP 1 VIEW CLINICAL HISTORY: eval PICC placement TECHNIQUE: Portable AP chest radiograph on ??11/27/2015 at 1444 hours. COMPARISON: 11/12/2015 radiograph. 11/16/2015 PICC placement spot view. FINDINGS: Right upper extremity PICC position compatible with the upper SVC. Unchanged appearance of the lungs, cardiomediastinal silhouette, ??and pulmonary vascular markings. Procedure Note Carolynn Garza MD - 11/27/2015 EXAMINATION: XR CHEST PA OR AP 1 VIEW CLINICAL HISTORY: eval PICC placement TECHNIQUE: Portable AP chest radiograph on 11/27/2015 at 1444 hours. COMPARISON: 11/12/2015 radiograph. 11/16/2015 PICC placement spot view. FINDINGS: Right upper extremity PICC position compatible with the upperSVC. Unchanged appearance of the lungs, cardiomediastinal silhouette, andpulmonary vascular markings. Madhu Eagle MD IMG DX ORDERABLES * US Renal Transplant Left (11/27/2015 2:30 PM EDT) Anatomical Region Laterality Modality Abdomen Left Ultrasound 11/27/2015 2:26 PM EDT Impressions 11/27/2015 5:47 PM EDT Impression Transplant Kidney Summary 1. ??Interval slight increase in mild pelvicaliectasis of the transplant kidney with persistent mild dilatation of the visualized proximal ureter. ??No perinephric collections identified. 2. ??Normal renal cortical echogenicity. 3. ??Normal intrarenal resistive indices. 4. ??Interrogated portions of the main renal artery and vein are patent. I ??viewed the images and agree with the above interpretation. ? Jolly Payne MD Electronically Signed Final Report ?? 11/27/2015 05:46 pm Narrative 11/27/2015 5:47 PM EDT Transplant ? (Signed Final 11/27/2015 05:46 pm) Patient Info ID #: ? [id number] ? : 46 (65 yrs) Name: ? ETHEL AKINS ? Visit Date:11/27/2015 02:26 pm Performed By Performed By: ? Osmar Dowd RDMS Attending: ?Jolly Payne MD Associate: ?Enrique Aviles MD Referred By: ?MADHU EAGLE MD Service(s) Provided ??URTPL - Ultrasound Renal Transplant - Left - [id number] Indications ??s/p renal transplant now with RAY Comparison Renal transplant ultrasound 11/14/2015. Renal Allograft Size (cm) ? L: 12.4 Cortical Thickness: ?Normal Corticomedullary Differention: Normal Echogenicity: ?Normal Perinephric Fluid/Collections: No collection identified Hydronephrosis: ?Mild pelvicaliectasis Comment: ?Mild dilatation of the visualized proximal ureter, ? measures 7 mm in diameter. Renal Transplant Duplex ? PSV ? EDV ? RI ??Waveform ? (cm/s) ??(cm/s) Arcuate Artery ?0.73 ??Patent Upper Pole: Arcuate Artery ?0.72 ??Patent Mid Allograft: Arcuate Artery ?0.74 ??Patent Lower Pole: Main Renal Artery ? 66.5 ?10.5 ?0.84 ??Patent Mid: Comment: ?Interrogated portions of the main renal artery and ? vein appear patent. Urinary Bladder Comment: ?Partially distended and unremarkable. Procedure Note Jolly Payne MD - 11/27/2015 Transplant (Signed Final 11/27/2015 05:46pm) Patient Info ID #: [id number] : 46 (65 yrs) Name: ETHEL AKINS Visit Date:11/27/2015 02:26 pm Performed By Performed By: Osmar Dowd RDMS Attending: Jolly Payne MD Associate: Enrique Aviles MD Referred By: MADHU EAGLE MD Service(s) Provided URTPL - Ultrasound Renal Transplant - Left - [id number] Indications s/p renal transplant now with RAY Comparison Renal transplant ultrasound 11/14/2015. Renal Allograft Size (cm) L: 12.4 Cortical Thickness: Normal Corticomedullary Differention: Normal Echogenicity: Normal Perinephric Fluid/Collections: No collection identified Hydronephrosis: Mild pelvicaliectasis Comment: Mild dilatation of the visualized proximal ureter, measures 7 mm in diameter. Renal Transplant Duplex PSV EDV RI Waveform (cm/s) (cm/s) Arcuate Artery 0.73 Patent Upper Pole: Arcuate Artery 0.72 Patent Mid Allograft: Arcuate Artery 0.74 Patent Lower Pole: Main Renal Artery 66.5 10.5 0.84 Patent Mid: Comment: Interrogated portions of the main renal artery and vein appear patent. Urinary Bladder Comment: Partially distended and unremarkable. IMPRESSION Impression Transplant Kidney Summary 1. Interval slight increase in mild pelvicaliectasis of the transplant kidney with persistent mild dilatation of the visualized proximal ureter. No perinephric collections identified. 2. Normal renal cortical echogenicity. 3. Normal intrarenal resistive indices. 4. Interrogated portions of the main renal artery and vein are patent. I viewed the images and agree with the above interpretation. Jolly Payne MD Electronically Signed Final Report 11/27/2015 05:46 pm Madhu Eagle MD IM US GEN ORDERA BLES documented in this encounter Visit Diagnoses Diagnosis RAY (acute kidney injury) Acute kidney failure, unspecified documented in this encounter Admitting Diagnoses Diagnosis RAY (acute kidney injury) Acute kidney failure, unspecified documented in this encounter Administered Medications Inactive Administered Medications - up to 3 most recent administrations Medication Order MAR Action Action Date Dose Rate Site calciTRIol (ROCALTROL) capsule 0.5 mcg 0.5 mcg, Oral, DAILY, First dose on Thu11/27/15 at 1500, Until Discontinued, Routine Given 11/28/2015 8:41 AM EDT 0.5 mcg DAPTOmycin (CUBICIN) 500 mg in sodium chloride 0.9% 60 mL 500 mg, Intravenous, at 120 mL/hr, ONCE, 1 dose, On Thu11/27/15 at 1500, Routine Given 11/27/2015 3:57 PM EDT 500 mg 120 mL /hr DILTiazem (DILTIAZEM CD) ER capsule 120 mg 120 mg, Oral, DAILY, First dose on Thu11/27/15 at 1500, Until Discontinued, DO NOT CRUSH OR OPEN, Routine Given 11/28/2015 8:40 AM EDT 120 mg Given 11/27/2015 8:02 PM EDT 120 mg heparin (porcine) subcutaneous injection 5,000 Units 5,000 Units, Subcutaneous, EVERY 8 HOURS SCHEDULED, First dose on Thu11/27/15 at 1500, Until Discontinued, Routine Given 11/28/2015 6:25 AM EDT 5,000 Unit s Given 11/27/2015 9:55 PM EDT 5,000 Units levothyroxine (SYNTHROID) tablet 75 mcg 75 mcg, Oral, DAILY, First dose on Thu11/27/15 at 1500, Until Discontinued, Routine Given 11/28/2015 9:42 AM EDT 75 mcg magnesium carbonate (MAGONATE) 1000 mg/5 mL (54 mg/5 mL) oral solution 1,000 mg 1,000 mg, Oral, 4 TIMES DAILY WITH MEALS & NIGHTLY, First dose on Thu11/27/15 at 1600, Until Discontinued, magnesium carbonate 200 mg/mL = 10.8 mg/mL (0.88 mEq/mL) Elemental magnesium, Routine Given 11/28/2015 11:02 AM EDT 1,000 mg Given 11/28/2015 8:41 AM EDT 1,000 mg Given 11/27/2015 8:03 PM EDT 1,000 mg mycophenolate (CELLCEPT) capsule 500 mg 500 mg, Oral, 2 TIMES DAILY, First dose on Thu11/27/15 at 1500, Until Discontinued, DO NOT CRUSH OR OPEN, Routine Given 11/28/2015 8:40 AM EDT 500 mg Given 11/27/2015 3:57 PM EDT 500 mg ondansetron (ZOFRAN) injection 4 mg 4 mg, Intravenous, EVERY 8 HOURS PRN, Starting on Thu11/27/15 at 1325, Until Thu11/28/15 at 1619, Nausea, May repeat times one in 30 minutes if ineffective. If multiple antiemetics are ordered, give ondansetron first. ondansetron (ZOFRAN) tablet 4 mg 4 mg, Oral, EVERY 8 HOURS PRN, Starting on Thu11/27/15 at 1325, Until Thu11/28/15 at 1619, Nausea, Vomiting, If multiple antiemetics are ordered, use ondansetron first. PO Preferred. If patient unable to take PO, may give IV if ordered. May repeat times one in 45 minutes if ineffective. If unable to take PO, may give IV., Routine pantoprazole (PROTONIX) injection 40 mg 40 mg, Intravenous, DAILY, First dose on Thu11/27/15 at 1500, Until Discontinued, Reconstitute with 10 mL of normal saline to a concentration of 4 mg/mL and infuse slowly over 2 minutes., Routine pantoprazole (PROTONIX) tablet 40 mg 40 mg, Oral, DAILY, First dose on Thu11/27/15 at 1500, Until Discontinued, DO NOT CRUSH OR OPEN If unable to take PO, may give IV Given 11/28/2015 8:41 AM EDT 40 mg Given 11/27/2015 4:12 PM EDT 40 mg potassium phosphate (monobasic) (K-PHOS) tablet 500 mg 500 mg, Oral, 2 TIMES DAILY, First dose on Thu11/27/15 at 1500, Until Discontinued, Dissolve tablets in 6-8 oz of water; for best results, soak tablets in water for 2-5 minutes, then stir and give to patient., Routine Given 11/28/2015 8:40 AM EDT 500 mg Given 11/27/2015 3:58 PM EDT 500 mg sodium chloride 0.9 % flush 5 mL 5 mL, Intravenous, 2 TIMES DAILY, First dose on Thu11/27/15 at 1345, Until Discontinued, Recovery (Recovery-Hospital Unit), Routine Given 11/27/2015 1:56 PM EDT 5 mLs sodium chloride 0.9% 2,000 mL IV bolus Intravenous, ONCE, 1 dose, On Thu11/27/15 at 1845 Given 11/27/2015 7:16 PM EDT sodium chloride 0.9% infusion 150 mL/hr, Intravenous, CONTINUOUS, Starting on Thu11/27/15 at 1345, Until Thu11/27/15 at 1826, Recovery (Recovery-Hospital Unit) New Bag 11/27/2015 1:56 PM EDT 150 mL/hr 150 mL/hr sodium chloride 0.9% infusion 0-1,000 mL/hr, Intravenous, EVERY 4 HOURS, 42 doses, First dose (after last modification) on Thu11/27/15 at 1845, Last dose on Thu12/04/15 at 1445, 1:1 replacement of Uop. Every 4 hours please record Uop and then match this to the NS rate (ie; if voided 1L in 4 hours, please run a 1L over the next 4 hours to keep patient net even). call box wirer internet security specialist will also be checking to try to make patient +2L (so may have extra boluses overnight) Continued Bag 11/27/2015 8:02 PM EDT 231 mL/hr 231 mL/hr sulfamethoxazole-trimethoprim (BACTRIM;SEPTRA) 400-80 mg per tablet 1 tablet 1 tablet, Oral, DAILY, First dose on Thu11/27/15 at 1500, Until Discontinued, Routine, Indication for (Active or Suspected): Prophylaxis Given 11/28/2015 8:41 AM EDT 1 tablet tacrolimus (PROGRAF) capsule 1 mg 1 mg, Oral, 2 TIMES DAILY, First dose on Thu11/27/15 at 1500, Until Discontinued, Routine Given 11/28/2015 8:40 AM EDT 1 mg Given 11/27/2015 3:58 PM EDT 1 mg tamsulosin (FLOMAX) ER capsule 0.4 mg 0.4 mg, Oral, NIGHTLY, First dose on Thu11/27/15 at 2100, Until Discontinued, DO NOT CRUSH OR OPEN, Routine Given 11/27/2015 8:02 PM EDT 0.4 mg valGANciclovir (VALCYTE) tablet 900 mg 900 mg, Oral, DAILY, First dose on Thu11/27/15 at 1500, Until Discontinued, Routine, Indication for (Active or Suspected): Prophylaxis Given 11/28/2015 8:40 AM EDT 900 mg documented in this encounter Active and Recently Administered Medications Times are shown in EDT. Scheduled Medication Order 11/26/2015 11/27/2015 11/28/2015 calciTRIol (ROCALTROL) capsule 0.5 mcg 0.5 mcg, Oral, DAILY, First dose on Thu11/27/15 at 1500, Until Discontinued, Routine 1500 (Not Given - Provider: Malina Edmonds RN - Reason: See comment - Comment: Pt states he already took this AM) 0841 (Given - Provider: Margarette Mota, JADEN) DAPTOmycin (CUBICIN) 500 mg in sodium chloride 0.9% 60 mL (COMPLETED) 500 mg, Intravenous, at 120 mL/hr, ONCE, 1 dose, On Thu11/27/15 at 1500, Routine 1557 (Given - Provider: Malina Edmonds RN) DILTiazem (DILTIAZEM CD) ER capsule 120 mg 120 mg, Oral, DAILY, First dose on Thu11/27/15 at 1500, Until Discontinued, DO NOT CRUSH OR OPEN, Routine 2001 (Given - Provider: Sandra Dodd RN) 0840 (Given - Provider: Margarette Mota, JADEN) heparin (porcine) subcutaneous injection 5,000 Units 5,000 Units, Subcutaneous, EVERY 8 HOURS SCHEDULED, First dose on Thu11/27/15 at 1500, Until Discontinued, Routine 1500 (Not Given - Provider: Malina Edmonds RN - Reason: Patient/family refused)2155 (Given - Provider: Sandra Dodd RN) 0625 (Given - Provider: Sandra Dodd RN)1400 (Due) levothyroxine (SYNTHROID) tablet 75 mcg 75 mcg, Oral, DAILY, First dose on Thu11/27/15 at 1500, Until Discontinued, Routine 1500 (Not Given - Provider: Malina Edmonds RN - Reason: See comment - Comment: Pt states he already took this AM) 0942 (Given - Provider: Margarette Mota RN) magnesium carbonate (MAGONATE) 1000 mg/5 mL (54 mg/5 mL) oral solution 1,000 mg 1,000 mg, Oral, 4 TIMES DAILY WITH MEALS & NIGHTLY, First dose on Thu11/27/15 at 1600, Until Discontinued, magnesium carbonate 200 mg/mL = 10.8 mg/mL (0.88 mEq/mL) Elemental magnesium, Routine 1557 (Given - Provider: Malina Edmonds RN)2002 (Given - Provider: Sandra Dodd RN) 0841 (Given - Provider: Margarette Mota RN)1102 (Given - Provider: Margarette Mota RN) mycophenolate (CELLCEPT) capsule 500 mg 500 mg, Oral, 2 TIMES DAILY, First dose on Thu11/27/15 at 1500, Until Discontinued, DO NOT CRUSH OR OPEN, Routine 1557 (Given - Provider: Malina Edmonds RN) 0840 (Given - Provider: Margarette Mota RN) pantoprazole (PROTONIX) injection 40 mg(Linked Group 1) 40 mg, Intravenous, DAILY, First dose on Thu11/27/15 at 1500, Until Discontinued, Reconstitute with 10 mL of normal saline to a concentration of 4 mg/mL and infuse slowly over 2 minutes., Routine 1612 (See Alternative - Provider: Malina Edmonds RN) 0841 (See Alternative - Provider: Margarette Mota RN) pantoprazole (PROTONIX) tablet 40 mg(Linked Group 1) 40 mg, Oral, DAILY, First dose on Thu11/27/15 at 1500, Until Discontinued, DO NOT CRUSH OR OPEN If unable to take PO, may give IV 1612 (Given - Provider: Malina Edmonds RN) 0841 (Given - Provider: Margarette Mota RN) potassium phosphate (monobasic) (K-PHOS) tablet 500 mg 500 mg, Oral, 2 TIMES DAILY, First dose on Thu11/27/15 at 1500, Until Discontinued, Dissolve tablets in 6-8 oz of water; for best results, soak tablets in water for 2-5 minutes, then stir and give to patient., Routine 1558 (Given - Provider: Malina Edmonds RN) 0840 (Given - Provider: Margarette Mota RN) sodium chloride 0.9 % flush 5 mL 5 mL, Intravenous, 2 TIMES DAILY, First dose on Thu11/27/15 at 1345, Until Discontinued, Recovery (Recovery-Hospital Unit), Routine 1356 (Given - Provider: Malina Edmonds RN)2100 (Not Given - Provider: Sandra Dodd RN - Reason: Patient/family refused) 0900 (Not Given - Provider: Margarette Mota, JADEN - Reason: Loss of access) sodium chloride 0.9% 2,000 mL IV bolus (COMPLETED) Intravenous, ONCE, 1 dose, On Thu11/27/15 at 1845 1916 (Given - Provider: Malina Edmonds, JADEN) sodium chloride 0.9% infusion (CANCELED) 0-1,000 mL/hr, Intravenous, EVERY 4 HOURS, 42 doses, First dose (after last modification) on Thu11/27/15 at 1845, Last dose on Thu12/04/15 at 1445, 1:1 replacement of Uop. Every 4 hours please record Uop and then match this to the NS rate (ie; if voided 1L in 4 hours, please run a 1L over the next 4 hours to keep patient net even). call box wirer internet security specialist will also be checking to try to make patient +2L (so may have extra boluses overnight) 2001 (Continued Bag - Provider: Sandra Dodd, JADEN) sulfamethoxazole-trimethop rim (BACTRIM;SEPTRA) 400-80 mg per tablet 1 tablet 1 tablet, Oral, DAILY, First dose on Thu11/27/15 at 1500, Until Discontinued, Routine, Indication for (Active or Suspected): Prophylaxis 1500 (Not Given - Provider: Malina Edmonds RN - Reason: See comment - Comment: Pt states he already took this AM) 0841 (Given - Provider: Margarette Mota, JADEN) tacrolimus (PROGRAF) capsule 1 mg 1 mg, Oral, 2 TIMES DAILY, First dose on Thu11/27/15 at 1500, Until Discontinued, Routine 1558 (Given - Provider: Malina Edmonds, JADEN) 0840 (Given - Provider: Margarette Mota, JADEN) tamsulosin (FLOMAX) ER capsule 0.4 mg 0.4 mg, Oral, NIGHTLY, First dose on Thu11/27/15 at 2100, Until Discontinued, DO NOT CRUSH OR OPEN, Routine 2001 (Given - Provider: Sandra Dodd RN) valGANciclovir (VALCYTE) tablet 900 mg 900 mg, Oral, DAILY, First dose on Thu11/27/15 at 1500, Until Discontinued, Routine, Indication for (Active or Suspected): Prophylaxis 1500 (Not Given - Provider: Malina Edmonds, JADEN - Reason: See comment - Comment: Pt states he already took this AM) 0840 (Given - Provider: Margarette Mota, JADEN) Continuous Medication Order 11/26/2015 11/27/2015 11/28/2015 sodium chloride 0.9% infusion (CANCELED) 150 mL/hr, Intravenous, CONTINUOUS, Starting on Thu11/27/15 at 1345, Until Thu11/27/15 at 1826, Recovery (Recovery-Hospital Unit) 1356 (New Bag - Provider: Malina Edmonds, RN)1916 (Stopped - Provider: Malina Edmonds, RN) PRN Medication Order 11/26/2015 11/27/2015 11/28/2015 acetaminophen (TYLENOL) tablet 650 mg 650 mg, Oral, EVERY 4 HOURS PRN, Starting on Thu11/27/15 at 1324, Until Thu11/28/15 at 1619, Pain, Maximum dose of acetaminophen is 4000 mg from all sources in 24 hours., Routine lidocaine (XYLOCAINE) 10 mg/mL (1 %) injection 3 mg 3 mg (0.3 mL), Subcutaneous, ONCE PRN, 1 dose, Starting on Thu11/27/15 at 1324, Until Thu11/28/15 at 1619, for discomfort with PIV insertion, Recovery (Recovery-Hospital Unit), Routine nalOXone (NARCAN) injection 0.2 mg 0.2 mg, Intravenous, EVERY 1 MIN PRN, Starting on Thu11/27/15 at 1324, Until Thu11/28/15 at 1619, Opioid Reversal, If respiratory rate less than 6 OR the patient is unable to arouse OR SpO2 is declining, Give for respiratory rate of less than or equal to 6 and patient is heavily sedated or unarousable. May repeat every 60 seconds to increase respiratory rate. DO NOT exceed 2 mg total dose., Recovery (Recovery-Hospital Unit), Routine ondansetron (ZOFRAN) injection 4 mg(Linked Group 2) 4 mg, Intravenous, EVERY 8 HOURS PRN, Starting on Thu11/27/15 at 1325, Until Thu11/28/15 at 1619, Nausea, May repeat times one in 30 minutes if ineffective. If multiple antiemetics are ordered, give ondansetron first. ondansetron (ZOFRAN) tablet 4 mg(Linked Group 2) 4 mg, Oral, EVERY 8 HOURS PRN, Starting on Thu11/27/15 at 1325, Until Thu11/28/15 at 1619, Nausea, Vomiting, If multiple antiemetics are ordered, use ondansetron first. PO Preferred. If patient unable to take PO, may give IV if ordered. May repeat times one in 45 minutes if ineffective. If unable to take PO, may give IV., Routine oxyCODONE (ROXICODONE) immediate release tablet 5 mg 5 mg, Oral, EVERY 4 HOURS PRN, Starting on Thu11/27/15 at 1324, Until Thu11/28/15 at 1619, Pain, for MILD pain (1-3), May repeat once in 60 minutes if pain not relieved., Routine sodium chloride 0.9 % flush 5-20 mL 5-20 mL, Intravenous, EVERY 1 MIN PRN, Starting on Thu11/27/15 at 1324, Until Thu11/28/15 at 1619, flush, Flush pertains to all indwelling lines. Flush per protocol found in the job aid using the link provided on this medication record., Recovery (Recovery-Hospital Unit), Routine Linked Groups Order Group 1: pantoprazole (PROTONIX) tablet 40 mgJump to med 40 mg, Oral, DAILY, First dose on Thu11/27/15 at 1500, Until Discontinued, DO NOT CRUSH OR OPEN If unable to take PO, may give IV Or pantoprazole (PROTONIX) injection 40 mgJump to med 40 mg, Intravenous, DAILY, First dose on Thu11/27/15 at 1500, Until Discontinued, Reconstitute with 10 mL of normal saline to a concentration of 4 mg/mL and infuse slowly over 2 minutes., Routine Group 2: ondansetron (ZOFRAN) tablet 4 mgJump to med 4 mg, Oral, EVERY 8 HOURS PRN, Starting on Thu11/27/15 at 1325, Until Thu11/28/15 at 1619, Nausea, Vomiting, If multiple antiemetics are ordered, use ondansetron first. PO Preferred. If patient unable to take PO, may give IV if ordered. May repeat times one in 45 minutes if ineffective. If unable to take PO, may give IV., Routine Or ondansetron (ZOFRAN) injection 4 mgJump to med 4 mg, Intravenous, EVERY 8 HOURS PRN, Starting on Thu11/27/15 at 1325, Until Thu11/28/15 at 1619, Nausea, May repeat times one in 30 minutes if ineffective. If multiple antiemetics are ordered, give ondansetron first. documented in this encounter Care Teams Disaster Recovery Consultant Relationship Specialty Start Date End Date [place] Denis DO [address] [place] [address] PCP - General 09/03/12 03/17/22 Ruchi Valles RN Nurse Clinic Transplant Surgery 07/30/15 documented as of this encounter
--- OUTSIDE RECORDS SUMMARY | 2024-02-14 11:34 | XMS_ITS | Encounter Summary ---
Author Organization [facility] [place] [place] [address] Care Team Providers Care Spotter Name Role Phone Adeel Urbano KIRBY Primary Care Provider [phone] Reason for Visit * Reason Comments Kidney Transplant Follow-up Immunotherapy * Auth/Cert Specialty Diagnoses / Procedures Referred By Humberto flor Referred To Contact Diagnoses UTI (urinary tract infection) RECURRENT UTI/KIDNEY TX 09/2015 Referral ID Status Reason Start Date Expiration Date Visits Re quested Visits Authorized [id number] 1 1 Encounter Details Date Type Department Care Team (Latest Contact Info) Description 12/04/2015 9:00 AM EDT Office Visit [place] [address] Tal Eagle MD [facility] [place] [address] Kidney replaced by transplant; RAY (acute kidney [...] Sign Reading Time Taken Comments Blood Pressure 132/74 12/04/2015 9:30 AM EDT Pulse 68 12/04/2015 9:30 AM EDT Temperature - - Respiratory Rate - - Oxygen Saturation 98% 12/04/2015 9:30 AM EDT Inhaled Oxygen Concentration - - Weight 97.4 kg (214 lb 12.8 oz) 12/04/2015 9:30 AM EDT Height 177.8 cm (5' 10) 12/04/2015 9:30 AM EDT Body Mass Index 30.82 12/04/2015 9:30 AM EDT documented in this encounter Progress Notes * Herlinda Bell, RD - 12/05/2015 11:31 AM EDT [facility] Post Transplant Nutrition Follow Up Date: 12/05/2015 Patient: Ethel Akins Transplant Date: 09/16/15 [place] organ UNOS diagnosis: Transplant: Mr. Ethel Akins is a White Not nor 65 y.o. male who is Status Post Kidney transplantation on 09/16/15. Patient was seen by Nutrition services on 12/04/2015 for follow up. Wt Readings from Last 3 Encounters: 12/04/15 97.4 kg (214 lb 12.8 oz) 11/28/15 95 kg (209 lb 7 oz) 11/27/15 97.6 kg (215 lb 3.2 oz) Today's vital signs: BP 132/74 Pulse 68 Ht 177.8 cm (5' 10) Wt 97.4 kg (214 lb 12.8 oz) SpO2 98% BMI 30.82 kg/m2 Estimated body mass index is 30.82 kg/(m^2) as calculated from the following: Height as of this encounter: 177.8 cm (5' 10). Weight as of this encounter: 97.4 kg (214 lb 12.8 oz). Weight pre-Txp: 100.7 Kg (222 lbs) BMI: 31.9 Lab Results Component Value Date HGB 13.9 12/04/2015 HCT 40.2 12/04/2015 NA 141 12/04/2015 K 5.0 12/04/2015 BUN 37 (H) 12/04/2015 CREATININE 3.10 (H) 12/04/2015 GLUCOSE 149 12/04/2015 CALCIUM 9.6 12/04/2015 MAGNESIUM 0.65 (L) 12/04/2015 PHOS 3.9 12/04/2015 ALBUMIN 4.4 12/04/2015 Cholesterol (in eD-H the component name CHLPL=Cholesterol) Lab Results Component Value Date CHLPL 154 12/04/2015 Assessment: This automotive service writer provided patient with a copy of his post-transplant nutrition lab report and reviewed with him. Patient continues to appear dehydrated; his serum creat is elevated again this visit. This could be related to either a bladder retention issue or a ureter stenosis issue. Moran placed this visit to first check on the bladder issue. Patient is otherwise eating well; no further nutrition interventions at this time. Plan: Follow up next clinic visit. * Tal Eagle MD - 12/04/2015 9:39 AM EDT [facility] Transplant Nephrology Follow Up Ethel Akins [id number] Transplant ID: Date:?? 12/04/2015 Patient:?? Ethel Akins? Transplant Date:?? 09/16/2015?? History of Present Illness: 65 y.o. male w/ hx of DM, HTN who is s/p donor kidney transplant 09/16/15. Patient presentsto transplant clinic for follow up of his recent admit for enterococcal bacteremia/UTI/pyelo from November 11- Rx with daptomycin. Previous tx hx: 0% PRA. Patient given Basliximab for induction. EBV +/+, CMV +/+ Is here FU. Interim Hx: Had another hospitalization last wk for elevated creat. He was on hospital for 4 days. He was givenIV hydration and his creat improved. He was Dced after stablization. Drinks 2.5 L per day Dry skin itchiness x 1 wk He says he has cut down on eating to lose wt No new OTC medication but has been taking omeprazole in last 2 wks, has taken in past. ROS: Denies fevers, chills, nausea, vomiting, diarrhea, abd pain, chest pain, sob. Denies any other review of systems, neither positives or negatives. Medications: Prior to Admission medications Medication Sig Start Date End Date Taking? Authorizing Provider valGANciclovir (VALCYTE) 450 mg Tablet Take 450 mg by mouth daily. Yes PROVIDER, HISTORICAL Magnesium Gluconate 27 mg (500 [...] ADRs: No Known Allergies PHYSICAL EXAM: Vitals: 05/31/16 0930 BP: 132/74 Pulse: 68 Gen - AAO x 3 in NAD [...] for ETHEL AKINS ( ) as of 12/04/2015 09:46 Ref. Range 11/28/2015 07:58 12/04/2015 08:30 12/04/2015 08:34 WBC Latest Ref Range: 4.0 - 10.0 x10(3)/mcL 5.2 5.3 RBC Latest Ref Range: 4.63 - 6.08 x10(6)/mcL 3.96 (L) 4.35 (L) Hemoglobin Latest Ref Range: 13.7 - 17.5 gm/dL 12.6 (L) 13.9 Hematocrit Latest Ref Range: 40.0 - 51.0 % 36.4 (L) 40.2 MCV Latest Ref Range: 79.0 - 92.0 fL 91.9 92.4 (H) MCH Latest Ref Range: 25.6 - 32.2 pg 31.8 32.0 MCHC Latest Ref Range: 32.0 - 36.5 gm/dL 34.6 34.6 RDWSD Latest Ref Range: 35.0 - 46.0 fL 48.7 (H) 48.0 (H) RDWCV Latest Ref Range: 10.9 - 14.4 % 14.4 14.2 Platelets Latest Ref Range: 145 - 370 x10(3)/mcL 307 255 MPV Latest Ref Range: 9.0 - 12.0 fL 9.2 9.6 Plat Immature % Latest Ref Range: 0.0 - 7.4 % 1.[address] % Latest Ref Range: 0.5 - 2.4 % 1.[address] Abs Latest Ref Range: 0.027 - 0.095 x10(6)/mcL 0.060 Immature Retic% Latest Ref Range: 2.3 - 15.9 % 4.1 Reticulated Hgb Latest Ref Range: 28.5 - 38.9 pg 33.7 Neutr Abs (ANC) Latest Ref Range: 1.50 - 6.30 x10(3)/mcL 3.39 3.70 Neutrophils % Latest Units: % 65.7 69.8 Immature Gran % Latest Units: % 1.40 0.80 Lymphocytes % Latest Units: % 21.7 21.3 Monocytes % Latest Units: % 5.6 3.6 Eosinophils % Latest Units: % 3.3 3.0 Basophils % Latest Units: % 2.3 1.5 Ayesha Gran Abs Latest Ref Range: 0.00 - 0.05 x10(3)/mcL 0.07 (H) 0.04 Lymphocytes Abs Latest Ref Range: 1.0 - 3.6 x10(3)/mcL 1.1 1.1 Monocyte Abs Latest Ref Range: 0.2 - 1.0 x10(3)/mcL 0.3 0.2 Eosinophils Abs Latest Ref Range: 0.0 - 0.5 x10(3)/mcL 0.2 0.2 Basophils Abs Latest Ref Range: 0.0 - 0.2 x10(3)/mcL 0.1 0.1 Sodium Latest Ref Range: 135 - 145 mmol/L 145 141 Potassium Latest Ref Range: 3.5 - 5.0 mmol/L 4.1 5.0 Chloride Latest Ref Range: 98 - 107 mmol/L 108 (H) 99 CO2 Latest Ref Range: 22 - 31 mmol/L 22 24 Anion Gap Latest Ref Range: 5 - 15 mmol/L 15 18 (H) BUN Latest Ref Range: 10 - 20 mg/dL 26 (H) 37 (H) Creatinine Latest Ref Range: 0.80 - 1.50 mg/dL 2.30 (H) 3.10 (H) Estimated GFR Latest Ref Range: >=60 28 (L) 20 (L) Glucose Lvl Latest Ref Range: 65 - 199 mg/dL 149 149 Calcium Latest Ref Range: 8.5 - 10.5 mg/dL 9.3 9.6 Magnesium Latest Ref Range: 0.69 - 1.07 mmol/L 0.54 (L) 0.65 (L) Phosphorus Latest Ref Range: 2.5 - 4.5 mg/dL 3.4 3.9 Uric Acid Latest Ref Range: 3.5 - 8.5 mg/dL 11.8 (H) Total Protein Latest Ref Range: 6.1 - 8.0 gm/dL 7.5 Albumin Latest Ref Range: 3.2 - 5.2 gm/dL 4.4 Total Bilirubin Latest Ref Range: 0.2 - 1.3 mg/dL 1.2 Bili, Direct Latest Ref Range: 0.0 - 0.3 mg/dL 0.2 Alk Phos Latest Ref Range: 40 - 120 unit/L 69 AST Latest Ref Range: 0 - 39 unit/L 36 ALT Latest Ref Range: 0 - 55 unit/L 33 Chol, Total Latest Ref Range: <=199 mg/dL 154 Tacrolimus Lvl Latest Units: ng/mL 5.2 Color UA Latest Ref Range: Yellow Straw Appearance UA Latest Ref Range: Clear Clear Spec Guion UA Latest Ref Range: 1.002 - 1.030 [...] Range: 0 - 3 /HPF 4 (H) RBC UA Latest Ref Range: 0 - 3 /HPF 1 Bacteria UA Latest Ref Range: None /HPF Rare (A) Squam Epith UA Latest Ref Range: <=4 /HPF <1 Culture Reflexed Unknown No Impression/ Plan: Mr. Akins is a 65 yr old gentleman w/ hx of kidney transplant who presents to transplant clinic for f/u but has consistently higher than basal creatinine, etio? Today wondering if issue is outlet obstruction Transplant Status -s/p donor kidney transplant 09/16/15 (DM, HTN) -Creat worsened 3.1 mg/dL but had high number when in hospital. Possible explaination could be obstruction. He had this issue in the past. We will place a moran catheter and leave it in for 3 days. That will streamline outflow issues if there is any. We will him back in [address] Christianson and get it removed. If creat falls we will refer him to urology. If it continues to be high we will hold plavix and biopsy him. Dehydrated. Instructed to drink more fluid goal x>3L fluids/day. -Uric acid elevated too. Immunosuppression -continue Cellcept to 250 mg BID -Continue Prograf 1mg/1mg PO4/Mg -Kphos 500mg BID -Mag gluconate 2 tabs 4 times/day K phos on hold Hypertension No change in meds Infectious prophylaxis -Decrease Valcyte to 450mg QDAY -Bactrim 1 tablet QDAY Follow up: RTC [address] Amaro to get his moran removed Follow up:3 days with repeat labs Seen and Discussed w/ Dr. Shagufta Villasenor MD Nephrology fellow Pager # [phone] I reviewed all of the above findings and assessment of Dr. Villasenor, examined the patient and formulated the recommendations which accurately reflect mine. documented in this encounter Plan of Treatment Upcoming Encounters Date Type Department Care Team (Late st Contact Info) Description 04/15/2024 10:00 AM EDT Hospital Encounter [place] [address] Arrived documented as of this encounter Results * (ABNORMAL) Comprehensive metabolic panel (non-fasting) (12/04/2015 8:34 AM EDT) Glucose 149 65 - 199 mg/dL [facility] Comment:Diabetes: >=200 mg/d L plus symptoms Blood Urea Nitrogen 37(H) 10 - 20 mg/dL [facility] Creatinine 3.10(H) 0.80 - 1.50 mg/dL [facility] Comment: Please note that the pediatric reference intervals supplied above were not validated at [facility]. Results from pediatric patients should be interpreted in conjunction to the patient's age, height and muscle mass. Sodium 141 135 - 145 mmol/L [facility] Potassium 5.0 3.5 - 5.0 mmol/L [facility] Comment: Please note: ??Patients with WBC >100,000 may have falsely elevated Potassium levels. ??For accurate Potassium quantification in these patients send serum separator tube ([facility] top) for subsequent determinations. ??Contact the Clinical Chemistry Laboratory if there are any questions. Chloride 99 98 - 107 mmol/L [facility] Carbon Dioxide 24 22 - 31 mmol/L [facility] Anion Gap 18(H) 5 - 15 mmol/L [facility] Calcium 9.6 8.5 - 10.5 mg/dL [facility] Protein, Total 7.5 6.1 - 8.0 gm/dL [facility] Albumin 4.4 3.2 - 5.2 gm/dL [facility] Aspartate Aminotransferase 36 0 - 39 unit/L [facility] Alanine Aminotransferase 33 0 - 55 unit/L [facility] Alkaline Phosphatase 69 40 - 120 unit/L [facility] Bilirubin, Total 1.2 0.2 - 1.3 mg/dL [facility] Bilirubin, Direct 0.2 0.0 - 0.3 mg/dL [facility] Est Glomerular Filtration Rate 20(L) >=60 [facility] Comment: This [...] the following links into your internet browser. [email or web address] Blood specimen (specimen) 12/04/2015 8:34 AM EDT 12/04/2015 8:42 AM EDT Narrative Resulting Agency Comment Spec In Lab Tal Eagle MD CHEMISTRY ORDERAB LES [facility] [place] [address] * (ABNORMAL) Magnesium (12/04/2015 8:34 AM EDT) Magnesium 0.65(L) 0.69 - 1.07 mmol/L [facility] Blood specimen (specimen) 12/04/2015 8:34 AM EDT 12/04/2015 8:42 AM EDT Narrative Resulting Agency Comment Spec In Lab Tal Eagle MD CHEMISTRY ORDERAB LES Performing Organization Address City/[facility]/ZIP Co de Phone Number [facility] [place] [address] * Phosphorus (12/04/2015 8:34 AM EDT) Phosphorus 3.9 2.5 - 4.5 mg/dL [facility] Blood specimen (specimen) 12/04/2015 8:34 AM EDT 12/04/2015 8:42 AM EDT Narrative Resulting Agency Comment Spec In Lab Tal Eagle MD CHEMISTRY ORDERAB LES Performing Organization Address City/[facility]/ZIP Co de Phone Number [facility] [place] [address] * (ABNORMAL) Uric acid (12/04/2015 8:34 AM EDT) Uric Acid 11.8(H) 3.5 - 8.5 mg/dL [facility] Blood specimen (specimen) 12/04/2015 8:34 AM EDT 12/04/2015 8:42 AM EDT Narrative Resulting Agency Comment Spec In Lab Tal Eagle MD CHEMISTRY ORDERAB LES Performing Organization Address City/[facility]/ZIP Co de Phone Number [facility] [place] [address] * Tacrolimus level (12/04/2015 8:34 AM EDT) Tacrolimus 6.3 ng/mL [facility] Comment:Trough therapeutic: 5-15 ng/mL Blood specimen (specimen) 12/04/2015 8:34 AM EDT 12/04/2015 10:56 AM EDT Narrative Resulting Agency Comment Spec In Lab Tal Eagle MD CHEMISTRY ORDERAB LES Performing Organization Address [facility] Co de Phone Number [facility] [place] [address] * Reticulocyte Count (12/04/2015 8:34 AM EDT) Reticulocyte % 1.4 0.5 - 2.4 % [facility] Retic Abs # 0.060 0.027 - 0.095 x10(6)/mcL [facility] Immature Retic% 4.1 2.3 - 15.9 % [facility] Reticulated Hgb 33.7 28.5 - 38.9 pg [facility] Immature Plt % 1.7 0.0 - 7.4 % [facility] Blood specimen (specimen) 12/04/2015 8:34 AM EDT 12/04/2015 8:42 AM EDT Narrative Resulting Agency Comment Spec In Lab Tal Eagle MD HEMATOLOGY ORDERA BLES Performing Organization Address [facility] de Phone Number [facility] [place] [address] * Cholesterol, total (12/04/2015 8:34 AM EDT) Cholesterol, Total 154 <=199 mg/dL [facility] Comment: Recommendations of the NCEP Adult Treatment Panel for the following risk cutoff thresholds for the [place] population: Desirable: <200 mg/dL Borderline High: 200-239 mg/dL High: > or = 240 mg/dL Blood specimen (specimen) 12/04/2015 8:34 AM EDT 12/04/2015 8:42 AM EDT Narrative Resulting Agency Comment Spec In Lab Tal Eagle MD CHEMISTRY ORDERAB LES Performing Organization Address City/[facility] Co de Phone Number [facility] [place] [address] * Protein/Creatinine Ratio, urine (12/04/2015 8:30 AM EDT) Creatinine, Urine 69 mg/dL [facility] Protein, Urine <6 0 - 12 mg/dL [facility] Protein / Creatinine Ratio, Urine <0.1 ratio [facility] Urine specimen (specimen) 12/04/2015 8:30 AM EDT 12/04/2015 8:44 AM EDT Narrative Resulting Agency Comment Spec In Lab Tal Eagle MD URINE ORDERABLES [facility] [place] [address] * (ABNORMAL) Urinalysis with reflex Culture (12/04/2015 8:30 AM EDT) Glucose, Urine Dipstick Negative Negative mg/dL [facility] Protein, Urine Dipstick Negative Negative mg/dL [facility] Bilirubin, [...] [facility] pH, Urn (dipstick) 6.0 5.0 - 8.0 [facility] Blood, Urine Dipstick Negative Negative mg/dL [facility] Ketone, Urine Dipstick Negative Negative mg/dL [facility] Nitrite, Urine Dipstick Negative Negative [facility] Leukocytes, Urine Dipstick Negative Negative [facility] Appearance, Urine Dipstick Clear Clear [facility] Specific Guion Urine Automated 1.008 1.002 - 1.030 [facility] Color, Urine Dipstick Straw Yellow [facility] RBC, Urine 1 0 - 3 /HPF [facility] WBC, Urine 4(H) 0 - 3 /HPF [facility] Bacteria, Urine Rare(A) None /HPF [facility] Squamous Epithelial Cells, Urine <1 <=4 /HPF [facility] Reflex to Culture No [facility] Urine specimen (specimen) 12/04/2015 8:30 AM EDT 12/04/2015 8:42 AM EDT Narrative Resulting Agency Comment Spec In Lab Tal Eagle MD URINE ORDERABLES [facility] [place] [address] documented in this encounter Visit Diagnoses Diagnosis Kidney replaced by transplant RAY (acute kidney injury) Acute kidney failure, unspecified Aftercare following organ transplant Prophylactic immunotherapy Need for prophylactic immunotherapy documented in this encounter Care Teams Spotter Relationship Specialty Start Date End Date Urbano Denis DO [facility] [address] [place] [address] PCP - General 09/03/12 03/17/22 Ruchi Valles RN Nurse Clinic Transplant Surgery 07/30/15 documented as of this encounter
--- OUTSIDE RECORDS SUMMARY | 2024-02-14 11:34 | XMS_ITS | Encounter Summary ---
Author Organization [facility] [place] [address] Care Team Providers Care Digital Research Analyst Name Role Phone Urbano Denis DO Primary Care Provider Encounter Details Date Type Department Care Team (Late st Contact Info) Description 11/20/2015 10:00 AM EDT Office Visit [place] [address] Jennifer Amaro MD [facility] [address] [place] [address] H/O kidney transplant Social History Tobacco Use [...] Sign Reading Time Taken Comments Blood Pressure 142/87 11/20/2015 9:32 AM EDT Pulse 65 11/20/2015 9:32 AM EDT Temperature 36.3 ??C (97.4 ??F) 11/20/2015 9:32 AM ED T Respiratory Rate 14 11/20/2015 9:32 AM EDT Oxygen Saturation - - Inhaled Oxygen Concentration - - Weight 97.8 kg (215 lb 9.6 oz) 11/20/2015 9:32 A M EDT Height 177.8 cm (5' 10) 11/20/2015 9:32 AM EDT Body Mass Index 30.94 11/20/2015 9:32 AM EDT documented in this encounter Progress Notes * Herlinda Bell, RD - 11/20/2015 4:20 PM EDT [facility] Post Transplant Nutrition Follow Up Date: 11/20/2015 Patient: Cody Bolden Transplant Date: 09/16/15 [place] organ [facility]OS diagnosis: Transplant: Mr. Cody Bolden is a White Not nor 65 y.o. male who is Status Post Kidney transplantation on 09/16/15. Patient was seen by Nutrition services on 11/20/2015 for follow up. Wt Readings from Last 3 Encounters: 11/20/15 97.8 kg (215 lb 9.6 oz) 11/16/15 95.2 kg (209 lb 14.1 oz) 11/08/15 100.2 kg (220 lb 12.8 oz) Today's vital signs: Visit Vitals ??? BP 142/87 (BP Location (NBP): Right arm, Patient Position: Sitting) ??? Pulse 65 ??? Temp 36.3 ??C (97.4 ??F) (Oral) ??? Resp 14 ??? Ht 177.8 cm (5' 10) ??? Wt 97.8 kg (215 lb 9.6 oz) ??? BMI 30.94 kg/m2 Estimated body mass index is 30.94 kg/(m^2) as calculated from the following: Height as of this encounter: 177.8 cm (5' 10). Weight as of this encounter: 97.8 kg (215 lb 9.6 oz). Weight pre-Txp: 100.7 Kg (222 lbs) BMI: 30.9 Lab Results Component Value Date HGB 14.4 11/20/2015 HCT 40.7 11/20/2015 NA 137 11/20/2015 K 4.8 11/20/2015 BUN 25 (H) 11/20/2015 CREATININE 2.37 (H) 11/20/2015 GLUCOSE 184 11/20/2015 CALCIUM 9.4 11/20/2015 MAGNESIUM 0.60 (L) 11/20/2015 PHOS 3.1 11/20/2015 ALBUMIN 4.0 11/20/2015 TACROLIMUS 16.1 (H) 11/20/2015 Cholesterol (in eD-H the component name CHLPL=Cholesterol) Lab Results Component Value Date CHLPL 149 11/20/2015 Assessment: This leader writer provided patient with a copy of his post-transplant nutrition lab report and reviewed with him. Serum creatinine is showing a significant rise from 4 days ago and the serum Mg level has dropped slightly. Both of these are symptoms of Prograf toxicity, which proved the case as above. Patient is also slightly dehydrated, however; he received 2L IV prior to leaving clinic and returning home. Plan: Follow up with patient tomorrow when he returns to clinic to assure serum creatinine is trending back downward. * Jennifer Amaro MD - 11/20/2015 10:41 AM EDT Follow-Up: Transplant Clinic Date: 11/20/2015 Patient: Cody Bolden Date of Transplant: 09/16/2015 (Kidney) Transplant Surgeon: History of Present Illness: Mr. Bolden is a 65-yo male with a history of ESRD in the setting of hepatitis C who underwent donor kidney transplantation on 09/16/15. He was admitted to the hospital last week with Enterococcus faecalis bacteremia. He was hospitalized on IV antibiotics, his blood cultures cleared x 3 checks and he was discharged at the end of last week on IV daptomycin therapy. He returned for a routine clinic visit today. He feels well but has not been able to keep up with his PO intake. His weight is down today and hiscreatinine sandeep to the mid 2 range from 1.3 at discharge. He has been receiving his scheduled IV daptomycin treatments at his local infusion unit. No fevers or rigors and he denies cloudy urine and dysuria. No pain over the graft site. Current Meds: Current Outpatient Prescriptions Medication Sig [...] 1 mg by mouth 2 times daily. 3 mg in the AM 2 mg in the PM ??? sulfamethoxazole-trimethoprim (BACTRIM;SEPTRA) 400-80 mg Tablet Take [...] EXTREMITY performed by Jennifer Amaro MD at [facility] OR ??? Pro transplantation of kidney N/A 09/16/2015 @KIDNEY TRANSPLANT, WITHOUT RECIPIENT NEPHRECTOMY performed by Franko Larkin MD at [facility] OR ??? Pro transplant, prep cadaver renal graft N/A 09/16/2015 @PREPARATION CADAVERIC RENAL ALLOGRAFT performed by Franko Larkin MD at [facility] OR ??? N/A 09/16/2015 ORGAN ACQUISITION RENAL, CADAVERIC performed by Franko Larkin MD at [facility] OR Family History: No family history on file. Social History: History Substance Use Topics ??? Smoking status: Former Smoker Types: Cigars ??? Smokeless tobacco: Never Used Comment: cigars, only sometimes ??? Alcohol use: No ROS: Review of Systems Constitutional: Negative for chills and fever. All other systems reviewed and are negative. Vital Signs: Visit Vitals ??? BP 142/87 (BP Location (NBP): Right arm, Patient Position: Sitting) ??? Pulse 65 ??? Temp 36.3 ??C (97.4 ??F) (Oral) ??? Resp 14 ??? Ht 177.8 cm (5' 10) ??? Wt 97.8 kg (215 lb 9.6 oz) ??? BMI 30.94 kg/m2 Physical Exam: Objective: Vital signs (most recent): Blood pressure 142/87, pulse 65, temperature 36.3 ??C (97.4 ??F), temperature source Oral, resp. rate 14, height 177.8 cm (5' 10), weight 97.8 kg (215 lb 9.6 oz). General appearance: Comfortable, well-appearing, in no acute distress and not in pain. Lungs: Normal respiratory rate and normal effort. Abdomen: (Soft, nontender, nondistended abdomen. ). Wound: Clean. There is no dehiscence or hernia. There is no drainage. Drain: No Labs: Lab Results Component Value Date CREATININE 2.37 (H) 11/20/2015 K 4.8 11/20/2015 GLUCOSE 184 11/20/2015 HCT 40.7 11/20/2015 HGB 14.4 11/20/2015 WBC 8.3 11/20/2015 PHOS 3.1 11/20/2015 Assessment/Plan: Mr. Bolden returned to the clinic today following his discharge from the hospital for Enterococcal bacteremia. He has had no fevers since discharge and remains on IV daptomycin therapy as per the Transplant ID recommendations. His pre-discharge blood cultures were negative. --Graft function: Creatinine level was up to 2.4 today from 1.3 at discharge from the hospital. Weight is down and he admits that he has not been attending to his PO intake over the last couple of days. We gave him 2L IV normal saline in the clinic and found that his prograf level was elevated thisafternoon. His dose is on hold for tonight and tomorrow. He will be back in the clinic tomorrow fora repeat creatinine and tacrolimus trough level draw. -- Bacteremia: continue IV daptomycin. We changed his schedule to q48h from q24h based upon his GFRlevel today. -- Hepatitis C followup: he is due to see Dr. Marcelo at 3 months following transplantation. This was discussed and arranged directly between Dr. Eagle and Dr. Marcelo. -- Immunosuppression reviewed and adjusted: Prograf: tacrolimus level was 16 on 09/04, hold tonight and tomorrow am. Will repeat a spot tacrolimus level again tomorrow in the clinic before restart tomorrow evening. Prednisone: none Cellcept: 500 mg po bid -- Hypertension management: No adjustments were required today -- Electrolytes: Calcium and phosphorus balance reviewed. Magnesium balance reviewed. Holding KPO3 until we see that the renal allograft function improves -- RTC: tomorrow with a full set of labs Pharmacy needs addressed. No concerns today. MD: JENNIFER AMARO MD documented in this encounter Plan of Treatment Upcoming Encounters Date Type Department Care Team (Late st Contact Info) Description 04/15/2024 10:00 AM EDT Hospital Encounter Non-Invasive [place]iology [place] [address] Arrived documented as of this encounter Procedures Procedure Name Priority Date/Time Associated Diagnosis Comments BK QUANT URINE RESULT STAT 11/20/2015 9:20 AM EDT H/O kidney transplant SCAN, PERIPHERAL BLOOD STAT 6 9:20 AM EDT BKV QUANT URINE STAT 11/20/2015 9:20 AM EDT H/O kidney transplant HEMOGRAM STAT 11/20/2015 9:20 AM EDT H/O kidney transplant DIFFERENTIAL, AUTOMATED STAT 11/20/2015 9:20 AM EDT H/O kidney transplant GREEN TUBE HOLD STAT 11/20/2015 9:20 AM EDT TACROLIMUS LEVEL STAT 11/20/2015 9:20 AM EDT H/O kidney transplant URINALYSIS WITH REFLEX CULTURE STAT 11/20/2015 9:20 AM EDT H/O kidney transplant RETICULOCYTE COUNT STAT 11/20/2015 9: 20 AM EDT H/O kidney transplant CBC (WITH DIFF) STAT 11/20/2015 9:20 AM EDT H/O kidney transplant URINE CULTURE STAT 11/20/2015 9:20 AM EDT URIC ACID STAT 11/20/2015 9:20 AM EDT H/O kidney transplant PHOSPHORUS STAT 11/20/2015 9:20 AM EDT H/O kidney transplant MAGNESIUM STAT 11/20/2015 9:20 AM EDT H/O kidney transplant CHOLESTEROL, TOTAL STAT 11/20/2015 9: 20 AM EDT H/O kidney transplant COMPREHENSIVE METABOLIC PANEL STAT 11/20/2015 9:20 AM EDT H/O kidney transplant documented in this encounter Results * BK Quant Urine Result (11/20/2015 9:20 AM EDT) BKV Urine Result Positive [facility] BKV Urine Interp BK Virus Urine Result Interpretation Result: Positive for BK Virus log concentration (copies/mL urine): 3.95 log copies/mL (8.9x10^3 copies/mL) Assay Range: urine: 2.83-8.83 log copies/mL (6.8x10^2 - 6.8x10^8 copies/mL ) Results are reported as log copies/mL. ??Changes of less than 1.0 log between serial samples may not be clinically significant. Methods: Quantitative real-time polymerase chain reaction (PCR) of viral DNA isolated from urine was performed using [employer] BKV (ASR) reagents and the Applied IndexTank 7500 FAST Real-Time PCR System. In addition, the PCR product sequence is confirmed using physical properties (melting curve analysis). This test was developed and its performance determined by the [facility] Pathology Laboratory. It has not been cleared or approved by the U.S. Food and Drug Administration. This test is used for clinical purposes and should not be considered investigational or for research purposes. The Molecular Pathology Laboratory is certified by the Clinical Laboratory Improvement Act of 1988 and as such is allowed to perform high complexity clinical testing. [facility] Comment: [VERIFIED DATE]11.21.15 Verified By:Susy Grider (Electronic Signature) Urine specimen (specimen) 11/20/2015 9:20 AM EDT 11/20/2015 11:44 AM EDT Narrative Resulting Agency Comment Spec In Lab Jennifer Amaro MD HEMATOLOGY ORD ERABLES [facility] [place] [address] * Scan, Peripheral Blood (11/20/2015 9:20 AM EDT) Plat estimate Increased [facility] RBC Morphology Normal [facility] Plat, Giant Less than 1 /HPF [facility] Platelet Clumps Present [facility] Blood specimen (specimen) 11/20/2015 9:20 AM EDT 11/20/2015 9:48 AM EDT Narrative Resulting Agency Comment Spec In Lab Jennifer Amaro MD HEMATOLOGY ORD ERABLES Performing Organization Address [facility]/ZIP Co de Phone Number [facility] [place] [address] * Urine culture (11/20/2015 9:20 AM EDT) [facility] Urine Culture No growth (Less than 1,000 cfu/ml). [facility] Urine specimen obtained by clean catch procedure (specimen) 11/20/2015 9:20 AM EDT 11/20/2015 10:39 AM EDT Narrative Resulting Agency Comment Spec In Lab Jennifer Amaro MD MICROBIOLOGY - GENERAL ORDERABLES Performing Organization Address [facility]/ZIP Co de Phone Number [facility] [place] [address] * Green Tube HOLD (11/20/2015 9:20 AM EDT) [facility] Green Hold Sample in lab. [facility] Blood specimen (specimen) Venous Draw / Unknown 11/20/2015 9:20 AM EDT 11/20/2015 9:50 AM EDT Jennifer Amaro MD CHEMISTRY ORDE RABLES Performing Organization Address City/[facility]/ZIP Co de Phone Number [facility] [place] [address] * (ABNORMAL) Differential, Automated (11/20/2015 9:20 AM EDT) Neutrophil % 64.6 % [facility] Neutrophil Absolute 5.33 1.50 - 6.30 x10(3)/ L [facility] Lymph % 15.9 % [facility] Lymphocytes Abs 1.3 1.0 - 3.6 x10(3)/ L [facility] Monocyte % 7.1 % [facility] Monocyte Abs 0.6 0.2 - 1.0 x10(3)/ L [facility] Eos % 1.9 % [facility] Eosinophils Abs 0.2 0.0 - 0.5 x10(3)/[facility] Basophil % 0.8 % [facility] Baso Absolute 0.1 0.0 - 0.2 x10(3)/[facility] Immature Gran % 9.70 % [facility] Comment: Immature granulocytes(IG's)percentage and absolute count will include metamyelocytes, myelocytes, and promyelocytes. Blood smears from CBCs yielding IG's will be scanned manually for concordance. If this scan disagrees with the automated IG or if promyelocytes are noted, a manual differential will be performed. Immature Gran Absolute 0.80(H) 0.00 - 0.05 x10(3)/ L [facility] Blood specimen (specimen) 11/20/2015 9:20 AM EDT 11/20/2015 9:48 AM EDT Narrative Resulting Agency Comment Spec In Lab Jennifer Amaro MD HEMATOLOGY ORD ERABLES [facility] [place] [address] * (ABNORMAL) Hemogram (11/20/2015 9:20 AM EDT) White Blood Cell 8.3 4.0 - 10.0 x10(3)/ L [facility] Red Blood Cell 4.45(L) 4.63 - 6.08 x10(6)/mc L [facility] Hemoglobin 14.4 13.7 - 17.5 gm/dL [facility] Hematocrit 40.7 40.0 - 51.0 % [facility] Mean Cell Volume 91.5 79.0 - 92.0 fL [facility] Mean Cell Hemoglobin 32.4(H) 25.6 - 32.2 pg [facility] Mean Cell Hemoglobin Concentration 35.4 32.0 - 36.5 gm/dL [facility] Platelet 427(H) 145 - 370 x10(3)/mc L [facility] RDW Standard Deviation 45.3 35.0 - 46.0 fL [facility] RDW coefficient of variation 13.6 10.9 - 14.4 % [facility] Mean Platelet Volume 9.7 9.0 - 12.0 fL [facility] Blood specimen (specimen) 11/20/2015 9:20 AM EDT 11/20/2015 9:48 AM EDT Narrative Resulting Agency Comment Spec In Lab Jennifer Amaro MD HEMATOLOGY ORD ERABLES [facility] [place] [address] * (ABNORMAL) Reticulocyte Count (11/20/2015 9:20 AM EDT) Reticulocyte % 2.3 0.5 - 2.4 % [facility] Retic Abs # 0.100(H) 0.027 - 0.095 x10(6)/mc L [facility] Immature Retic% 5.0 2.3 - 15.9 % [facility] Reticulated Hgb 36.8 28.5 - 38.9 pg [facility] Immature Plt % 1.4 0.0 - 7.4 % [facility] Blood specimen (specimen) 11/20/2015 9:20 AM EDT 11/20/2015 9:48 AM EDT Narrative Resulting Agency Comment Spec In Lab Jennifer Amaro MD HEMATOLOGY ORD ERABLES Performing Organization Address [facility] Co de Phone Number [facility] [place] [address] * Tacrolimus level (11/20/2015 9:20 AM EDT) Tacrolimus 16.1 ng/mL [facility] Comment: Called by: REYNALDO, Read back by: JANINE, Date/Time:11/20/15 14:10_. Trough therapeutic: ??5-15 ng/mL Blood specimen (specimen) 11/20/2015 9:20 AM EDT 11/20/2015 1:28 PM EDT Narrative Resulting Agency Comment Spec In Lab Jennifer Amaro MD CHEMISTRY ORDTiny JENNINGS Performing Organization Address [facility] Co de Phone Number [facility] [place] [address] * (ABNORMAL) Urinalysis with reflex Culture (11/20/2015 9:20 AM EDT) Glucose, Urine Dipstick Negative Negative mg/dL [facility] Protein, Urine Dipstick Negative Negative mg/dL [facility] Bilirubin, Urine Dipstick Negative Negative mg/dL [facility] Comment: Clinical correlation required for positive Urine Bilirubin results as false positive may occur with some drugs and drug related products. If a false positive is suspected a serum total bilirubin should be considered if clinically indicated. Urobilinogen, Urine Dipstick Normal Normal mg/dL [facility] pH, Urn (dipstick) 5.0 5.0 - 8.0 [facility] Blood, Urine Dipstick Negative Negative mg/dL [facility] Ketone, Urine Dipstick Negative Negative mg/dL [facility] Nitrite, Urine Dipstick Negative Negative [facility] Leukocytes, Urine Dipstick Trace(A) Negative [facility] Appearance, Urine Dipstick Hazy(A) Clear [facility] Specific [place] Urine Automated 1.014 1.002 - 1.030 [facility] Color, Urine Dipstick Yellow Yellow [facility] RBC, Urine 3 0 - 3 /HPF [facility] WBC, Urine 25(H) 0 - 3 /HPF [facility] Bacteria, Urine Rare(A) None /HPF [facility] Squamous Epithelial Cells, Urine <1 <=4 /HPF [facility] Transitional Epithelial Cells, Urine 2(H) <=1 /HPF [facility] Renal Epithelial Cells, Urine <1(H) <=0 /HPF [facility] Reflex to Culture Yes [facility] Urine specimen obtained by clean catch procedure (specimen) 11/20/2015 9:20 AM EDT 11/20/2015 9:48 AM EDT Narrative Resulting Agency Comment Spec In Lab Jennifer Amaro MD URINE ORDERABL ES Performing Organization Address City/[facility]/ZIP Co de Phone Number [facility] [place] [address] * (ABNORMAL) Uric acid (11/20/2015 9:20 AM EDT) Uric Acid 9.3(H) 3.5 - 8.5 mg/dL [facility] Blood specimen (specimen) 11/20/2015 9:20 AM EDT 11/20/2015 9:48 AM EDT Narrative Resulting Agency Comment Spec In Lab Jennifer Amaro MD CHEMISTRY ORDE RABLES [facility] [place] [address] * Phosphorus (11/20/2015 9:20 AM EDT) Phosphorus 3.1 2.5 - 4.5 mg/dL [facility] Blood specimen (specimen) 11/20/2015 9:20 AM EDT 11/20/2015 9:48 AM EDT Narrative Resulting Agency Comment Spec In Lab Jennifer Amaro MD CHEMISTRY ORDE [facility] [employer] Performing Organization Address [facility] Co de Phone Number [facility] [place] [address] * (ABNORMAL) Magnesium (11/20/2015 9:20 AM EDT) Magnesium 0.60(L) 0.69 - 1.07 mmol/L [facility] Blood specimen (specimen) 11/20/2015 9:20 AM EDT 11/20/2015 9:48 AM EDT Narrative Resulting Agency Comment Spec In Lab Jennifer Amaro MD CHEMISTRY ORDE DICK Performing Organization Address [facility] Co de Phone Number [facility] [place] [address] * (ABNORMAL) Comprehensive metabolic panel (non-fasting) (11/20/2015 9:20 AM EDT) Glucose 184 65 - 199 mg/dL [facility] Comment:Diabetes: >=200 mg/d L plus symptoms Blood Urea Nitrogen 25(H) 10 - 20 mg/dL [facility] Creatinine 2.37(H) 0.80 - 1.50 mg/dL [facility] Comment: Please note that the pediatric reference intervals supplied above were not validated at [facility]. Results from pediatric patients should be interpreted in conjunction to the patient's age, height and muscle mass. Sodium 137 135 - 145 mmol/L [facility] Potassium 4.8 3.5 - 5.0 mmol/L [facility] Comment: Please note: ??Patients with WBC >100,000 may have falsely elevated Potassium levels. ??For accurate Potassium quantification in these patients send serum separator tube (gold top) for subsequent determinations. ??Contact the Clinical Chemistry Laboratory if there are any questions. Chloride 101 98 - 107 mmol/L [facility] Carbon Dioxide 20(L) 22 - 31 mmol/L [facility] Anion Gap 16(H) 5 - 15 mmol/L [facility] Calcium 9.4 8.5 - 10.5 mg/dL [facility] Protein, Total 7.6 6.1 - 8.0 gm/dL [facility] Albumin 4.0 3.2 - 5.2 gm/dL [facility] Aspartate Aminotransferase 49(H) 0 - 39 unit/L [facility] Alanine Aminotransferase 70(H) 0 - 55 unit/L [facility] Alkaline Phosphatase 73 40 - 120 unit/L [facility] Bilirubin, Total 0.8 0.2 - 1.3 mg/dL [facility] Bilirubin, Direct 0.1 0.0 - 0.3 mg/dL [facility] Est Glomerular Filtration Rate 28(L) >=60 [facility] Comment: This estimated GFR [...] the following links into your internet browser. [email or web address] Blood specimen (specimen) 11/20/2015 9:20 AM EDT 11/20/2015 9:48 AM EDT Narrative Resulting Agency Comment Spec In Lab Jennifer Amaro MD CHEMISTRY ROCHELLE JENNINGS [facility] [place] [address] * Cholesterol, total (11/20/2015 9:20 AM EDT) Cholesterol, Total 149 <=199 mg/dL [facility] Comment: Recommendations of the NCEP Adult Treatment Panel for the following risk cutoff thresholds for the [place] population: Desirable: <200 mg/dL Borderline High: 200-239 mg/dL High: > or = 240 mg/dL Blood specimen (specimen) 11/20/2015 9:20 AM EDT 11/20/2015 9:48 AM EDT Narrative Resulting Agency Comment Spec In Lab Jennifer Amaro MD CHEMISTRY ROCHELLE JENNINGS [facility] [place] [address] documented in this encounter Visit Diagnoses Diagnosis H/O kidney transplant Kidney replaced by transplant documented in this encounter Care Teams Digital Research Analyst Relationship Specialty Start Date End Date Urbano Denis DO [address] [place] [address] PCP - General 09/03/12 03/17/22 Ruchi Valles RN Nurse Clinic Transplant Surgery 07/30/15 documented as of this encounter
--- OUTSIDE RECORDS SUMMARY | 2024-02-14 11:34 | XMS_ITS | Encounter Summary ---
Author Organization [facility] [place] [address] Care Team Providers Care Senior Sql Server Developer Name Role Phone Urbano Denis DO Primary Care Provider [phone] Reason for Visit * Auth/Cert Specialty Diagnoses / Procedures Referred By Humberto t Referred To Contact Diagnoses RAY (acute kidney injury) CREATINE RISE S/P RENAL TRANPLANT Referral ID Status Reason Start Date Expiration Date Visits Re quested Visits Authorized [id number] 1 1 Encounter Details Date Type Department Care Team (Late st Contact Info) Description 11/27/2015 10:00 AM EDT Office [place] [address] Jennifer Amaro MD [facility] [place] [address] H/O kidney transplant Social History Tobacco Use [...] Sign Reading Time Taken Comments Blood Pressure 161/72 11/27/2015 9:20 AM EDT Pulse 73 11/27/2015 9:20 AM EDT Temperature 36.3 ??C (97.4 ??F) 11/27/2015 9:20 AM ED T Respiratory Rate - - Oxygen Saturation - - Inhaled Oxygen Concentration - - Weight 97.6 kg (215 lb 3.2 oz) 11/27/2015 9:20 A M EDT Height 177.8 cm (5' 10) 11/27/2015 9:20 AM EDT Body Mass Index 30.88 11/27/2015 9:20 AM EDT documented in this encounter Progress Notes * Herlinda Bell, RD - 11/27/2015 1:37 PM EDT [facility] Post Transplant Nutrition Follow Up Date: 11/27/2015 Patient: Cody Bolden Transplant Date: 09/16/15 [place] organ UNOS diagnosis: Transplant: Mr. Cody Bolden is a White Not nor 65 y.o. male who is Status Post Kidney transplantation on 09/16/15. Patient was seen by Nutrition services on 11/27/2015 for follow up. Wt Readings from Last 3 Encounters: 11/27/15 97.6 kg (215 lb 3.2 oz) 11/23/15 98.6 kg (217 lb 6.4 oz) 11/21/15 98.8 kg (217 lb 12.8 oz) Today's vital signs: BP 161/72 (BP Location (NBP): Right arm, Patient Position: Sitting) Pulse 73 Temp 36.3 ??C (97.4 ??F) (Oral) Ht 177.8 cm (5' 10) Wt 97.6 kg (215 lb 3.2 oz) BMI 30.88 kg/m2 Estimated body mass index is 30.88 kg/(m^2) as calculated from the following: Height as of this encounter: 177.8 cm (5' 10). Weight as of this encounter: 97.6 kg (215 lb 3.2 oz). Weight pre-Txp: 100.7 Kg (222 lbs) BMI: 31.9 Lab Results Component Value Date HGB 13.3 (L) 11/27/2015 HCT 37.9 (L) 11/27/2015 NA 141 11/27/2015 K 4.5 11/27/2015 BUN 37 (H) 11/27/2015 CREATININE 2.83 (H) 11/27/2015 GLUCOSE 145 11/27/2015 CALCIUM 9.5 11/27/2015 MAGNESIUM 0.61 (L) 11/27/2015 PHOS 3.8 11/27/2015 ALBUMIN 4.0 11/27/2015 Cholesterol (in eD-H the component name CHLPL=Cholesterol) Lab Results Component Value Date CHLPL 152 11/27/2015 Assessment: This health technical writer reviewed patient's blood chemistries with him. There is a sudden rise in his serum creatinine level; it is not a Prograf toxicity this time. Patient is being admitted after he receives 2Lof IV fluid and is being scheduled for an U/S and possible kidney biopsy for tomorrow. Patient doesnot appear to require any strict diet restrictions; he should be careful with concentrated sweets and follow a NCS diet. Plan: Follow up while inpatient should nutrition issues present themselves. * Jennifer Amaro MD - 11/27/2015 12:28 PM EDT Follow-Up: Transplant Clinic Date: 11/27/2015 Patient: Cody Bolden Date of Transplant: 09/16/2015 (Kidney) Transplant Surgeon: History of Present Illness: Mr. Bolden is a 65-yo male with a history of ESRD who is s/p donor kidney transplantation on 09/16/15. He returned to clinic today for a routine followup appointment. 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 Today is his last dose and will complete his 14 day course recommended by the Transplant ID team while he was admitted to the hospital. Over the past week he has had an elevated creatinine level in the low 2 range that occurred in the setting of an elevated Prograf trough level. His weight decreased by another kg between his last clinic visit and the visit today despite giving him 1 L IV NS with each of his every other day daptomycin infusions. He is no longer recording his urine volumes but uses a 1L urinal container for overnight voids and tells me that he fills it twice overnight. It sounds as though he continues to make ~4L of urine daily. He has had no other fluid losses including diarrhea in the setting of the Cellcept dosing. Current Meds: No current facility-administered medications for [...] T86.13 ??? RAY (acute kidney injury) N17.9 Past Medical History: Past Medical History Diagnosis [...] EXTREMITY performed by Jennifer Amaro MD at [facility] OR ??? Pro transplantation of kidney N/A 09/16/2015 @KIDNEY TRANSPLANT, WITHOUT RECIPIENT NEPHRECTOMY performed by Franko Larkin MD at [facility] OR ??? Pro transplant, prep cadaver renal graft N/A 09/16/2015 @PREPARATION CADAVERIC RENAL ALLOGRAFT performed by Franko Larkin MD at [facility] OR ??? N/A 09/16/2015 ORGAN ACQUISITION RENAL, CADAVERIC performed by Franko Larkin MD at [facility] OR Family History: No family history on file. Social History: History Substance Use Topics ??? Smoking status: Former Smoker Types: Cigars ??? Smokeless tobacco: Never Used Comment: cigars, only sometimes ??? Alcohol use: No ROS: Review of Systems Constitutional: Negative for chills and fever. Genitourinary: Negative for difficulty urinating, dysuria and hematuria. All other systems reviewed and are negative. Vital Signs: BP 161/72 (BP Location (NBP): Right arm, Patient Position: Sitting) Pulse 73 Temp 36.3??C (97.4 ??F) (Oral) Ht 177.8 cm (5' 10) Wt 97.6 kg (215 lb 3.2 oz) BMI 30.88 kg/m2 Physical Exam: Objective: Vital signs (most recent): Blood pressure 161/72, pulse 73, temperature 36.3 ??C (97.4 ??F), temperature source Oral, height 177.8 cm (5' 10), weight 97.6 kg (215 lb 3.2 oz). General appearance: Comfortable, well-appearing, in no acute distress and not in pain. Lungs: Normal respiratory rate and normal effort. Abdomen: (The transplant incision is c/d/i with no evidence of incisional hernia on Valsalva maneuver. ). Drain: No Labs: Lab Results Component Value Date CREATININE 2.83 (H) 11/27/2015 K 4.5 11/27/2015 GLUCOSE 145 11/27/2015 HCT 37.9 (L) 11/27/2015 HGB 13.3 (L) 11/27/2015 WBC 6.5 11/27/2015 PHOS 3.8 11/27/2015 Assessment: Mr. Bolden is a hepatitis C positive 65-yo male with a history of ESRD who is s/p donor kidney transplantation from a hepatitis C positive donor. --Graft function: creatinine sandeep to 2.8 today (from 2.2). His weight is down by 1kg since his lastvisit. I am giving him 2 L IV NS in the clinic, we will followup his Prograf trough level this afternoon to see if it is elevated again. I am going to admit him for further IV hydration overnight andwe will reassess the creatinine level tomorrow. Will hold Plavix in anticipation of possible renal allograft biopsy over the upcoming week, will reassess for restart once we see his repeat labs in the am. I arranged for a duplex of the renal allograft. The US team was not able to fit him into the schedule today and will duplex the graft tomorrow afternoon. -- ID: --- (1) he will receive his final dose of IV daptomycin today following admission to the hospital. This will complete his 14 day course that was recommended by the ID team. No symptoms or laboratory evidence suggestive of infectious issue. --- (2) he is scheduled for his first postoperative visit with Dr. Marcelo in Hepatology over the upcoming month. There are plans to treat his hep C with a regimen that includes the new DAA medications for hepatitis C. Dr. Marcelo has been following him since the preoperative phase and is overseeing this care. -- Immunosuppression reviewed and adjusted: Prograf: tacrolimus level is pending on 07/06 Prednisone: none Cellcept: 500 mg po bid -- Hypertension management: no adjustments during the clinic visit today -- Electrolytes: Calcium and phosphorus balance reviewed. Magnesium balance reviewed. -- Disposition: Admit to the hospital for IV fluid hydration and workup in the setting of a rising creatinine level Pharmacy needs addressed. No concerns today. MD: JENNIFER AMARO MD * Samia Escalante RN - 11/27/2015 12:[address] Jennifer Amaro, administered 2L normal saline over 2 hours for dehydration via patient's PICC line. Start time: 10:45a End time: 12:45p Total infusion: 2,000cc Samia Escalante RN [facility] Solid Organ Transplant [phone] (Pager: [phone]) documented in this encounter Plan of Treatment Upcoming Encounters Date Type Department Care Team (Late st Contact Info) Description 04/15/2024 10:00 AM EDT Hospital Encounter [place] [address] Arrived documented as of this encounter Procedures Procedure Name Priority Date/Time Associated Diagnosis Comments BK QUANT BLOOD RESULT STAT 11/27/2015 9:30 AM EDT H/O kidney transplant BKV QUANT BLOOD STAT 11/27/2015 9:30 AM EDT H/O kidney transplant HEMOGRAM STAT 11/27/2015 9:30 AM EDT H/O kidney transplant DIFFERENTIAL, AUTOMATED STAT 11/27/2015 9:30 AM EDT H/O kidney transplant GREEN TUBE HOLD STAT 11/27/2015 9:30 AM EDT TACROLIMUS LEVEL STAT 11/27/2015 9:30 AM EDT H/O kidney transplant URINALYSIS WITH REFLEX CULTURE STAT 11/27/2015 9:30 AM EDT H/O kidney transplant RETICULOCYTE COUNT STAT 11/27/2015 9: 30 AM EDT H/O kidney transplant CBC (WITH DIFF) STAT 11/27/2015 9:30 AM EDT H/O kidney transplant URIC ACID STAT 11/27/2015 9:30 AM EDT H/O kidney transplant PHOSPHORUS STAT 11/27/2015 9:30 AM EDT H/O kidney transplant MAGNESIUM STAT 11/27/2015 9:30 AM EDT H/O kidney transplant CHOLESTEROL, TOTAL STAT 11/27/2015 9: 30 AM EDT H/O kidney transplant COMPREHENSIVE METABOLIC PANEL STAT 11/27/2015 9:30 AM EDT H/O kidney transplant documented in this encounter Results * BK Quant Blood Result (11/27/2015 9:30 AM EDT) Pathologist [facility] BKV Blood Result Not Detected [facility] [...] DNA isolated from plasma was performed using [employer]one[employer] BKV (ASR) reagents and the Applied Biosystems 7500 FAST Real-Time PCR System. In addition, the ??PCR product sequence is confirmed using physical properties (melting curve analysis). This test was developed and its performance determined by the [facility] Molecular Pathology Laboratory. It has not been cleared or approved by the U.S. Food and Drug Administration. This test is used for clinical purposes and should not be considered investigational or for research purposes. The Molecular Pathology Laboratory is certified by the Clinical Laboratory Improvement Act of 1988 and as such is allowed to perform high complexity clinical testing. [facility] Comment: [VERIFIED DATE]11.28.15 Verified By:Nella Evans (Electronic Signature) Blood specimen (specimen) 11/27/2015 9:30 AM EDT 11/27/2015 1:04 PM EDT Narrative Resulting Agency Comment Spec In Lab Jennifer Amaro MD HEMATOLOGY ORD MILAGROS Performing Organization Address [facility] Co de Phone Number [facility] [place] [phone] * Green Tube HOLD (11/27/2015 9:30 AM EDT) Pathologist [facility] Green Hold Sample in lab. [facility] Blood specimen (specimen) Venous Draw / Unknown 11/27/2015 9:30 AM EDT 11/27/2015 9:50 AM EDT Jennifer Amaro MD CHEMISTRY ORDTiny JENNINGS Performing Organization Address [facility]/ZIP Co de Phone Number [facility] [place] [address] * (ABNORMAL) Differential, Automated (11/27/2015 9:30 AM EDT) Pathologist [facility] Neutrophil % 70.3 % [facility] Neutrophil Absolute 4.59 1.50 - 6.30 x10(3)/mc L [facility] Lymph % 20.0 % [facility] Lymphocytes Abs 1.3 1.0 - 3.6 x10(3)/[facility] LABORAT[facility] Monocyte % 4.0 % [facility] Monocyte Abs 0.3 0.2 - 1.0 x10(3)/[facility] LABOR[facility] Eos % 2.4 % [facility] Eosinophils Abs 0.2 0.0 - 0.5 x10(3)/[facility] LABORATORY Basophil % 1.2 % [facility] Baso Absolute 0.1 0.0 - 0.2 x10(3)/[facility] LABORATORY Immature Gran % 2.10 % [facility] Comment: Immature granulocytes(IG's)percentage and absolute count will include metamyelocytes, myelocytes, and promyelocytes. Blood smears from CBCs yielding IG's will be scanned manually for concordance. If this scan disagrees with the automated IG or if promyelocytes are noted, a manual differential will be performed. Immature Gran Absolute 0.14(H) 0.00 - 0.05 x10(3)/[facility] Blood specimen (specimen) 11/27/2015 9:30 AM EDT 11/27/2015 9:46 AM EDT Narrative Resulting Agency Comment Spec In Lab Jennifer Amaro MD HEMATOLOGY ORD ERABLES Performing Organization Address City/State/[facility] Co de Phone Number [facility] [place] [address] * (ABNORMAL) Hemogram (11/27/2015 9:30 AM EDT) White Blood Cell 6.5 4.0 - 10.0 x10(3)/[facility] Red Blood Cell 4.12(L) 4.63 - 6.08 x10(6)/[facility] Hemoglobin 13.3(L) 13.7 - 17.5 gm/dL [facility] Hematocrit 37.9(L) 40.0 - 51.0 % [facility] Mean Cell Volume 92.0 79.0 - 92.0 fL [facility] Mean Cell Hemoglobin 32.3(H) 25.6 - 32.2 pg [facility] Mean Cell Hemoglobin Concentration 35.1 32.0 - 36.5 gm/dL [facility] Platelet 349 145 - 370 x10(3)/mc L [facility] RDW Standard Deviation 48.3(H) 35.0 - 46.0 fL [facility] RDW coefficient of variation 14.4 10.9 - 14.4 % [facility] Mean Platelet Volume 9.1 9.0 - 12.0 fL [facility] Blood specimen (specimen) 11/27/2015 9:30 AM EDT 11/27/2015 9:46 AM EDT Narrative Resulting Agency Comment Spec In Lab Jennifer Amaro MD HEMATOLOGY ORD ERABLES Performing Organization Address City/[facility]/ZIP Co de Phone Number [facility] [place] [address] * Tacrolimus level (11/27/2015 9:30 AM EDT) Pathologist [facility] Tacrolimus 7.2 ng/mL [facility] Comment:Trough therapeutic: 5-15 ng/mL Blood specimen (specimen) 11/27/2015 9:30 AM EDT 11/27/2015 10:56 AM EDT Narrative Resulting Agency Comment Spec In Lab Jennifer Amaro MD CHEMISTRY ORDE RABLENORE Performing Organization Address City/[facility]/ZIP Co de Phone Number [facility] [place] [address] * Urinalysis with reflex Culture (11/27/2015 9:30 AM EDT) Glucose, Urine Dipstick Negative Negative mg/dL [facility] Protein, Urine Dipstick Negative Negative mg/dL [facility] Bilirubin, Urine Dipstick Negative Negative mg/dL [facility] Comment: Clinical correlation required for positive Urine Bilirubin results as false positive may occur with some drugs and drug related products. If a false positive is suspected a serum total bilirubin should be considered if clinically indicated. Urobilinogen, Urine Dipstick Normal Normal mg/dL [facility] pH, Urn (dipstick) 5.0 5.0 - 8.0 [facility] Blood, Urine Dipstick Negative Negative mg/dL [facility] Ketone, Urine Dipstick Negative Negative mg/dL [facility] Nitrite, Urine Dipstick Negative Negative [facility] Leukocytes, Urine Dipstick Negative Negative [facility] Appearance, Urine Dipstick Clear Clear [facility] Specific Adams Urine Automated 1.006 1.002 - 1.030 [facility] Color, Urine Dipstick Straw Yellow [facility] RBC, Urine 1 0 - 3 /HPF [facility] WBC, Urine 1 0 - 3 /HPF [facility] Reflex to Culture No [facility] Urine specimen obtained by clean catch procedure (specimen) 11/27/2015 9:30 AM EDT 11/27/2015 9:46 AM EDT Narrative Resulting Agency Comment Spec In Lab Jennifer Amaro MD URINE ORDERABL ES [facility] [place] [address] * (ABNORMAL) Reticulocyte Count (11/27/2015 9:30 AM EDT) Reticulocyte % 1.5 0.5 - 2.4 % [facility] Retic Abs # 0.060 0.027 - 0.095 x10(6)/[facility] Immature Retic% 2.2(L) 2.3 - 15.9 % [facility] Reticulated Hgb 33.1 28.5 - 38.9 pg [facility] Immature Plt % 1.1 0.0 - 7.4 % [facility] Blood specimen (specimen) 11/27/2015 9:30 AM EDT 11/27/2015 9:46 AM EDT Narrative Resulting Agency Comment Spec In Lab Jennifer Amaro MD HEMATOLOGY ORD ERABLES Performing Organization Address City/[facility]/ZIP Co de Phone Number [facility] [place] [address] * (ABNORMAL) Uric acid (11/27/2015 9:30 AM EDT) Uric Acid 10.4(H) 3.5 - 8.5 mg/dL [facility] Blood specimen (specimen) 11/27/2015 9:30 AM EDT 11/27/2015 9:46 AM EDT Narrative Resulting Agency Comment Spec In Lab Jennifer Amaro MD CHEMISTRY ROCHELLE JENNINGS Performing Organization Address [facility]/ZIP Co de Phone Number [facility] [place] [address] * Phosphorus (11/27/2015 9:30 AM EDT) Phosphorus 3.8 2.5 - 4.5 mg/dL [facility] Blood specimen (specimen) 11/27/2015 9:30 AM EDT 11/27/2015 9:46 AM EDT Narrative Resulting Agency Comment Spec In Lab Jennifer Amaro MD CHEMISTRY ORDTiny JENNINGS Performing Organization Address [facility] Co de Phone Number [facility] [place] [address] * (ABNORMAL) Magnesium (11/27/2015 9:30 AM EDT) Magnesium 0.61(L) 0.69 - 1.07 mmol/L [facility] Blood specimen (specimen) 11/27/2015 9:30 AM EDT 11/27/2015 9:46 AM EDT Narrative Resulting Agency Comment Spec In Lab Jennifer Amaro MD CHEMISTRY ROCHELLE JENNINGS [facility] [place] [address] * (ABNORMAL) Comprehensive metabolic panel (non-fasting) (11/27/2015 9:30 AM EDT) Glucose 145 65 - 199 mg/dL [facility] Comment:Diabetes: >=200 mg/d L plus symptoms Blood Urea Nitrogen 37(H) 10 - 20 mg/dL [facility] Creatinine 2.83(H) 0.80 - 1.50 mg/dL [facility] Comment: Please note that the pediatric reference intervals supplied above were not validated at [facility]. Results from pediatric patients should be interpreted in conjunction to the patient's age, height and muscle mass. Sodium 141 135 - 145 mmol/L [facility] Potassium 4.5 3.5 - 5.0 mmol/L [facility] Comment: Please note: ??Patients with WBC >100,000 may have falsely elevated Potassium levels. ??For accurate Potassium quantification in these patients send serum separator tube (gold top) for subsequent determinations. ??Contact the Clinical Chemistry Laboratory if there are any questions. Chloride 104 98 - 107 mmol/L [facility] Carbon Dioxide 20(L) 22 - 31 mmol/L [facility] Anion Gap 17(H) 5 - 15 mmol/L [facility] Calcium 9.5 8.5 - 10.5 mg/dL [facility] Protein, Total 7.4 6.1 - 8.0 gm/dL [facility] Albumin 4.0 3.2 - 5.2 gm/dL [facility] Aspartate Aminotransferase 30 0 - 39 unit/L [facility] Alanine Aminotransferase 28 0 - 55 unit/L [facility] Alkaline Phosphatase 73 40 - 120 unit/L [facility] Bilirubin, Total 0.8 0.2 - 1.3 mg/dL [facility] Bilirubin, Direct 0.2 0.0 - 0.3 mg/dL [facility] Est Glomerular Filtration Rate 22(L) >=60 [facility] Comment: This estimated GFR (eGFR) [...] the following links into your internet browser. [email or web address] Blood specimen (specimen) 11/27/2015 9:30 AM EDT 11/27/2015 9:46 AM EDT Narrative Resulting Agency Comment Spec In Lab Jennifer Amaro MD CHEMISTRY ROCHELLE JENNINGS Performing Organization Address [facility] Co de Phone Number [facility] [place] [address] * Cholesterol, total (11/27/2015 9:30 AM EDT) Cholesterol, Total 152 <=199 mg/dL [facility] Comment: Recommendations of the NCEP Adult Treatment Panel for the following risk cutoff thresholds for the [place] population: Desirable: <200 mg/dL Borderline High: 200-239 mg/dL High: > or = 240 mg/dL Blood specimen (specimen) 11/27/2015 9:30 AM EDT 11/27/2015 9:46 AM EDT Narrative Resulting Agency Comment Spec In Lab Jennifer Amaro MD CHEMISTRY ROCHELLE JENNINGS Performing Organization Address City/[facility]/ZIP Co de Phone Number [facility] [place] [address] documented in this encounter Visit Diagnoses Diagnosis H/O kidney transplant Kidney replaced by transplant documented in this encounter Care Teams Senior Sql Server Developer Relationship Specialty Start Date End Date rUbano Denis DO [address] [place] [address] PCP - General 09/03/12 03/17/22 Hai STANLEY,Ruchi Nurse Clinic Transplant Surgery 07/30/15 documented as of this encounter
--- OUTSIDE RECORDS SUMMARY | 2024-02-14 11:34 | XMS_ITS | Encounter Summary ---
Author Organization [facility] [place] [address] Care Team Providers Care String Laster Name Role Phone Urbano Denis DO Primary Care Provider Encounter Details Date Type Department Care Team (Late st Contact Info) Description 11/27/2015 [facility] [place] [phone] Joanie Sim MD [facility] [place] [address] DH ERRONEOUS ENCOUNTER Social History Tobacco Use Types Packs/Day Years [...] AM EDT Hospital Encounter Non-[place] [address] Arrived documented as of this encounter Visit Diagnoses Diagnosis DH ERRONEOUS ENCOUNTER documented in this encounter Care Teams String Laster Relationship Specialty Start Date End Date Urbano Denis DO [address] [place] [address] PCP - General 09/03/12 03/17/22 Hai STANLEY,Ruchi Nurse Clinic Transplant Surgery 07/30/15 documented as of this encounter
--- OUTSIDE RECORDS SUMMARY | 2024-02-14 11:34 | XMS_ITS | Encounter Summary ---
Author Organization [facility] [place] [address] Care Team Providers Care Petroleum Transport Driver Name Role Phone Urbano eDnis DO Primary Care Provider [phone] Encounter Details Date Type Department Care Team (Late st Contact Info) Description 11/20/2015 Telephone [place] [phone] Samia Escalante, RN Social History Tobacco Use [...] Telephone Encounter - Samia Escalante RN - 11/20/2015 3:51 PM EDT Called pt to discuss his elevated Prograf level today. Confirmed again that Yash did NOT take his Prograf prior to his labs this morning. Per Dr. Amaro, pt is to HOLD his dose both tonight and tomorrow morning, and we will determine subsequent dosing after we have that trough result. Pt and understand plan. Will be back in clinic tomorrow and I will draw his labs for him off of his PICC. Pt stated understanding of plan of care. No further questions at this time. Advised to call with additional concerns. Samia Escalante RN [facility] [place] [phone] (Pager: [phone]) documented in this encounter Plan of Treatment Upcoming Encounters Date Type Department Care Team (Late st Contact Info) Description 04/15/2024 10:00 AM EDT Hospital Encounter [place] [phone] Arrived documented as of this encounter Visit Diagnoses Not on filedocumented in this encounter Care Teams Petroleum Transport Driver Relationship Specialty Start Date End Date Urbano Denis DO [address] [place] [address] PCP - General 09/03/12 03/17/22 Ruchi Valles RN Nurse Clinic Transplant Surgery 07/30/15 documented as of this encounter
--- OUTSIDE RECORDS SUMMARY | 2024-02-14 11:35 | XMS_ITS | Encounter Summary ---
Author Organization [facility] [address] Care Team Providers Care Watcher [employer] Name Role Phone rUbano Denis DO Primary Care Provider Encounter Details Date Type Department Care Team (Late st Contact Info) Description 10/08/2015 Telephone [place] [phone] Samia Escalante, RN Social History Tobacco Use [...] Telephone Encounter - Samia Escalante, RN - 10/08/2015 10:19 AM EDT Called pt to discuss condition today: Thursday: T: 98.1F P: 60 BP: 142/78 Weight: 214lbs Blood sugars: 130 Intake: 2,640 cc Output (urine): 3,250 cc Thursday: T: 96.3F P: 64 BP: 144/86 Weight: 211lbs Blood sugars: 147 Intake: 2,640 cc Output (urine): 2,550 cc This Morning: T: 96.2F P: 64 BP: 150/74 Weight: 213lbs Blood sugars: 167 (pt had juice prior to taking his BG) Pt's reports that Yash did well over the weekend. [place] fairly fatigued washed out for the better part of yesterday, but symptoms subsided overnight. Pain is getting better without narcotics, and pt is going to drive today for the first time. Pt due back in clinic Thursday with Dr. Amaro. Pt stated understanding of plan of care. No further questions at this time. Advised to call with additional concerns. Samia Escalante, RN [facility] [place] [phone] (Pager: [phone]) documented in this encounter Plan of Treatment Upcoming Encounters Date Type Department Care Team (Late st Contact Info) Description 04/15/2024 10:00 AM EDT Hospital Encounter Non-Invasive [place] [phone] Arrived documented as of this encounter Visit Diagnoses Not on filedocumented in this encounter Care Teams Watcher [employer] Relationship Specialty Start Date End Date Urbano Denis DO [address] [place] [address] PCP - General 09/03/12 03/17/22 Ruchi Valles RN Nurse Clinic Transplant Surgery 07/30/15 documented as of this encounter
--- OUTSIDE RECORDS SUMMARY | 2024-02-14 11:35 | XMS_ITS | Encounter Summary ---
[place] [address] Care Team Providers Care Waiter/Waitress Name Role Phone [place] Denis DO Primary Care Provider Reason for Referral * Consultation (Routine) - Closed Specialty Diagnoses / Procedures Referred By Humberto flor Referred To Contact Infectious Diseases Diagnoses Bacteremia due to Enterococcus Ramez Serrano [facility] [place] [address] Ramez Serrano [facility] [place] [address] Referral ID Status Reason Start Date Expiration Date V isits Requested Visits Authorized [id number] Closed Assume Subset of Care 11/16/2015 11/15/2016 1 1 Reason for Visit * Reason Comments Super SIRS Criteria kidney transplant x8 weeks ago * Auth/Cert Specialty Diagnoses / Procedures Referred By Contac t Referred To Contact Diagnoses Kidney transplant infection Referral ID Status Reason Start Date Expiration Date Visits Re quested Visits Authorized [id number] 1 1 Encounter Details Date Type Department Care Team (Latest Contact Info) Description 11/12/2015 2:00 PM EDT - 11/16/2015 5:34 PM EDT Hospital Encounter [address] [place] [address] Paola Colbert MD [facility] [place] [address] Tal Eagle MD [facility] [place] [address] Kidney transplant infection; Irregular heart rate; Bacteremia due to Enterococcus Discharge Disposition: Home Social History Tobacco Use [...] Sign Reading Time Taken Comments Blood Pressure 137/70 11/16/2015 11:33 AM EDT Pulse 58 11/16/2015 11:33 AM EDT Temperature 36.5 ??C (97.7 ??F) 11/16/2015 1 1:33 AM EDT Respiratory Rate 20 11/16/2015 11:3 3 AM EDT Oxygen Saturation 96% 11/16/2015 11: 33 AM EDT Inhaled Oxygen Concentration - - Weight 95.2 kg (209 lb 14.1 oz) 11/16/2015 6:00 AM EDT Height 180.3 cm (5' 11) 11/13/2015 7:00 AM EDT Body Mass Index 29.27 11/13/2015 7:00 AM EDT documented in this encounter Discharge Summaries * Tal Eagle MD - 11/16/2015 1:48 PM EDT Discharge Summary Patient Name: Ethel Akins Patient Age: 65 y.o. Language: St Lucian Race: White Ethnicity: Not nor Admit date: 11/12/2015 Discharge date and time: 11/16/2015 Attending Physician: Tal Eagle MD Discharge Physician: Tal Eagle MD Follow-up Recommendations for Providers: You will come back to Transplant Clinic on Thursday You will receive outpatient IV antibiotics for 2 weeks You will follow up with a Preparator, Dr. Brown, at the end of December regarding your irregular heart rhythym Inpatient Provider Contact Information: Solid Organ Transplant Department [address], [address] [place] [address] Discharge Diagnoses (Hospital Problems) and Secondary Diagnoses (Chronic Problems): Active Hospital Problems Diagnosis ??? Kidney transplant infection Resolved Hospital Problems Diagnosis Date Resolved No resolved problems to display. Enterococcal bacteremia with sepsis in an immune compromised host Active Non-Hospital Problems Diagnosis ??? Chronic kidney disease, stage V ??? HCV (hepatitis C virus) ??? ESRD (end stage renal disease) ??? Hepatitis C virus infection ??? Essential hypertension ??? CGN (chronic glomerulonephritis) ??? DM type 2 (diabetes mellitus, type 2) ??? Hypertension ??? DJD (degenerative joint disease) ??? Hematuria History of Presentation: Ethel Akins ( ) is a 65 y.o. 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 Symptoms began Thursday and have not improved, his suggested he present to the ED.?? Has had some sinus congestion recently.?? Reportedly had a fever of 101 at home.?? Has never had problems with urinary incontinence before and not having other urinary symptoms.?? Had a UCx done in clinic on the as a matter of routine that is now growing enteroccocus. Hospital Course: The patient was admitted and started on IV antibiotics. He slowly improved and his fever curve trended down. He had issues with his heart rate while in the hospital, sometimes going as high as a heart rate in the 150s. This always converted on its own and EKGs showed sinus rhythym with irregular heart beats. He was evaluated by the Transplant team and deemed ready for discharge on 11/16/2015/ Vital Signs at Discharge: BP: 137/70 mmHg, Heart Rate: 58, Temp: 36.5 ??C (97.7 ??F), Resp: 20, Height: 180.3 cm (5' 11) (11/13/15 0700) Weight - Scale: 95.2 kg (209 lb 14.1 oz) (11/16/15 0600) Functional and Cognitive Status: stable at baseline Important Studies and Lab Data: Labs: Last 3 wbc, hgb, hct plt Recent Labs 11/16/15 0525 11/15/15 0614 11/14/15 0518 WBC 5.5 6.3 8.6 HGB 13.1* 12.8* 13.2* HCT 37.8* 36.0* 38.0* PLATELET 233 215 223 Last 3 Lytes Recent Labs 11/16/15 0525 11/15/15 0614 11/14/15 0518 NA 141 138 135 K 4.7 4.1 3.9 CL 104 102 98 CO2 24 23 23 BUN 17 12 13 CREATININE 1.36 1.28 1.47 Last 3 LFTs Recent Labs 11/08/15 0849 10/26/15 0810 10/12/15 0945 AST 22 19 18 ALT 25 29 27 ALKPHOS 83 86 92 BILITOT 0.7 1.0 0.8 BILIDIR <0.1 0.2 0.1 Last Ca, Mg, Phos Recent Labs 11/16/15 0525 CALCIUM 9.2 PHOS 2.3* Studies: Xr Chest Pa & Lateral (generic) 11/12/2015 EXAMINATION: XR CHEST ROUTINE PA AND LATERAL CLINICAL HISTORY: Chest Pain TECHNIQUE: PA and lateral views of the chest. COMPARISON: None. FINDINGS: The lungs are clear. The cardiomediastinalsilhouette, nelly, and pulmonary vasculature are within normal limits. No pneumothorax. Tiny right pleural effusion.No acute or suspicious osseous lesions. 11/12/2015 IMPRESSION: No acute cardiopulmonary process. Tiny right pleural effusion I have personally reviewed the image(s) and the residents interpretation and agree with the findings, Preeti Holloway at11/12/2015 4:15 PM Us Renal Transplant Left 11/14/2015 Impression Transplant Kidney Summary 1. New mild pelviectasis. 2. No peritransplant collection or renal mass seen. 3. Persistent and largely unchanged nonspecific elevated intrarenal resistive indices. 4. Patent main renal artery and vein. Pending Studies and Lab Data: The patient will need the following 2 tests completed on: 11/12/2015 1. Blood culture 2. Blood culture Authorizing Provider: Tal Eagle MD Discharge Conditions/Prognosis: stable Discharge to: home Updated Allergies/ADRs: No Known Allergies Immunizations Given this Hospitalization: Immunization History Administered Date(s) Administered ??? Hepatitis B Vaccine, unspecified formulation 04/16/2015, 05/14/2015, 06/20/2015 ??? Influenza PF, Split 06/04/2012, 05/26/2013 ??? Influenza Vaccine PF, Quadrivalent (6-35 Mos) 04/04/2015 ??? Pneumococcal Polyvalent 23 06/20/2014, 04/11/2015 ??? Td, adult 07/06/2000, 05/20/2011 ??? Zoster Vaccine, Live 07/17/2015 Discharge Medications: Your Medications New Medications Dose Details calciTRIol 0.5 mcg Cap Commonly known as: ROCALTROL Take 1 capsule by mouth daily. 0.5 mcg Quantity: 30 capsule Refills: 11 Magnesium Gluconate 27 mg (500 mg) Tab Take 2 tablets by mouth 4 times daily. 2 tablet Refills: 0 tamsulosin 0.4 mg Cp24 Commonly known as: FLOMAX Take 1 capsule by mouth nightly. 0.4 mg Quantity: 30 capsule Refills: 11 Continued medications with new dosing Dose Details valGANciclovir 450 mg Tab Commonly known as: VALCYTE Take 2 tablets by mouth daily for 183 days. What changed: how much to take 900 mg Quantity: 60 tablet Refills: 6 Continued medications, unchanged Dose Details acetaminophen 325 mg Tab Commonly known as: TYLENOL Take 2 tablets by mouth every 4 hours as needed for Pain. 650 mg Quantity: 30 tablet Refills: 1 clopidogrel 75 mg Tab Commonly known as: [...] the AM 2 mg in the PM 1 mg Refills: 0 Smoking Status at Discharge: History Smoking status ??? Former Smoker ??? Types: Cigars Smokeless tobacco ??? Never Used Comment: cigars, only sometimes Instructions Given to Patient at Discharge: Patient Instructions DISCHARGE INSTRUCTIONS FOLLOWING A TRANSPLANT Patient Instructions: 1. Notify the transplant team of fever (temperature > 100.0), redness, swelling, new drainage, worse pain, nausea, vomitting, diarrhea, constipation, shaking/tremor, sleepiness, insomnia, cough, difficulty urinating, burning with urination, frequent need to urinate, chest pain, shortness of breath, or other concern. 2. Do not start or stop any medications without notifying the transplant team. This can affect the level of your immunosuppression, which is dangerous. 3. Monitor the medications you are on and otain refills ahead of time. You should not miss a dose of immunosuppression for any reason. Call several days ahead to place refill requests. CARDIOLOGY You had a fast rate during your stay with us. We have arranged for followup with Dr. Brown, a Preparator who specializes in transplant patients. ANTIBIOTICS You are being discharged with a prescription for IV antibiotics. You will take Ampicillin every 4 hours through a pump. You will need to continue this IV Antibiotic treatment for 2 weeks. A PICC linewas placed in the hospital for the administration of this IV medication. WEEKLY DRESSING CHANGE AND LABS You will need to have your PICC line dressing changed weekly and labs drawn weekly. There is a prescription for these procedures at [facility]. Your first dressing change and lab draw should happen on , November 22, 2015. Scheduled Appointments: You are scheduled to receive routine follow-up care in the transplant clinic: Solid Organ Transplant Department [facility] [address], [address] [place], [place] [id number] Future Appointments Future Appointments Date Time Provider Department Center 11/20/2015 9:00 AM TRANSPLANT, COORDINATOR Heri Trans 2[facility] 11/20/2015 10:00 AM Que Amaro MD Leb Trans 2[facility] 12/11/2015 9:30 AM LAB, THREE L Lab 3L [facility] 12/11/2015 10:30 AM Tal Eagle MD Leb Trans [facility] 01/03/2016 3:30 PM Byron Brown MD Leb Cardio [facility] 01/04/2016 3:30 PM LAB, THREE L Lab 3L [facility] 01/04/2016 4:30 PM Tulio Marcelo MD Leb Gastro [facility] 09/15/2016 9:00 AM LAB, THREE L Lab 3L [facility] 09/15/2016 10:00 AM Tal Eagle MD Leb Trans 2[facility] LAB DRAWS: Prior to each clinic visit, [...] the message. You can also reach the nursing staff development coordinator after hours by calling (ask for the nursing staff development coordinator on-call). General Instructions Office of Care Management/Slag Skimmer(CM) Home IV Antibiotic Therapy Referral Note. ??Office of Care Management/ Slag Skimmer(CM) Infusion Room Referral for Outpatient IV Antibiotic Therapy Report received from Dr. Merle Fung that patient will require continued home IV antibiotic therapy after discharge from the hospital.?? Met with patient at bedside and spoke with spouse Mara via phone to discuss options for post discharge IV antibiotic therapy.?? Patient would be appropriate for continued infusion at an Outpatient Infusion Room.? Reviewed Infusion Room options near patient???s address.?? Patient requested referral to: 1. [facility] ? Infusion Suite (Jolly) ? Telephone call to Jolly at 12:00. ??Confirmed with Jolly availability of service. Documentation faxed to Infusion Room via edischarge as follows: OPAT and PICC upholsterer assembly line protocol Patient to report to 1. [facility] in [facility] ? Infusion Suite (Jolly) ?on Thursday11/17/15 at (spouse Mara instructed to contact Jolly at above number to schedule time) time. Diabetic Status: Patient is not a diabetic. IV access: Type of line: right basilic vein PICC Date placed: 11/16/15 at 8:22 am CM signature ?? CM MAVERICK Alvarez, pattern technician of Care Managemat pgr [phone] Future Appointments and Orders Future Appointments Provider Department Dept Phone 11/20/2015 9:00 AM TRANSPLANT, COORDINATOR Transplant [phone] 11/20/2015 10:00 AM Que Amaro MD Transplant [phone] 12/11/2015 9:30 AM LAB, THREE L [facility] 12/11/2015 10:30 AM Tal Eagle MD Transplant [phone] 01/03/2016 3:30 PM Byron Brown MD Cardiology [phone] 01/04/2016 3:30 PM LAB, THREE L [facility] Lab 01/04/2016 4:30 PM Tulio Marcelo MD Gastroenterology [phone] 09/15/2016 9:00 AM LAB, THREE L [facility] 09/15/2016 10:00 AM Tal Eagle MD Transplant [phone] Future Orders Complete By Expires OPAT: Order / Recommendation for Post Discharge IV Antibiotic Management [MNT720 CPT(R)] As directed Process Instructions: If no progress note charted, please enter Clinical details in comments. Scheduling Instructions: Comments: Please Fax all results to: OPAT Program Infectious Disease Section [facility], [place] [address] FAX: Line care instructions per [facility] OPAT Program protocol. After hours, please contact the Infectious Disease Physician second operator at . If this order was signed greater than 72 hours prior to [facility] discharge, please call to confirm the accuracy of this order. Questions: ID Diagnosis: Bacteremia, UTI/Pyelonephritis; Renal transplant 09/2015 Microorganisms being treated: Enterococcus Antibiotic Allergies: No known allergies Antibiotic (one line for each ABx): Daptomycin 570 mg IV Daily Start date: 11/13/2015 Anticipated stop date: 11/27/2015 Labs: Every Thursday: CBC, CMP Comment - and CPK every Thursday Last documented weight (kg): 95.2 kg (209 lb 14.1 oz) Last documented height (cm): 180.3 cm (5' 11) Responsible Attending: Ramez Serrano DO Scheduled Appointments: You are scheduled to receive routine follow-up care in the transplant clinic: Solid Organ Transplant Department [facility] [address], [address] [place] [id number] Future Appointments Date Time Provider Department Center 11/20/2015 9:00 AM TRANSPLANT, COORDINATOR Heri Trans [facility] 11/20/2015 10:00 AM Que Amaro MD Leb Trans 2[facility] 12/11/2015 9:30 AM LAB, THREE L Lab 3L [facility] 12/11/2015 10:30 AM Tal Eagle MD Leb Trans 2[facility] 01/03/2016 3:30 PM Byron Brown MD Leb Cardio [facility] 01/04/2016 3:30 PM LAB, THREE L Lab 3L [facility] 01/04/2016 4:30 PM Tulio Marcelo MD Leb Gastro [facility] 09/15/2016 9:00 AM LAB, THREE L Lab 3L [facility] 09/15/2016 10:00 AM Tal Eagle MD Leb [...] Assume Subset of Care Referred to Provider: ARMEZ SERRANO Number of Visits Requested: 1 Provider Contact Information: If you have any questions, or need to report a problem, you can call the Solid Organ Transplant Department anytime (day, night, weekend, holiday) at . After hours, please follow the instructions on the message. You can also reach the nursing staff development coordinator after hours by calling (ask for the nursing staff development coordinator on-call). I reviewed all of the above findings and assessment of Dr. Dereje Alcantara, examined the patient and formulated the recommendations which accurately reflect mine. In depth discussion with Dr. Serrano re: alternative abx for enterococcus sepsis Using single agent. Opted to use daptomycin daily instead of q4hr ampicillin for the same period oftime. Patient was not found to have endocarditis or prostatitis. documented in this encounter Discharge Instructions * Discharge Instructions* Claribel Roberts RN - 11/16/2015 12:56 PM EDT Office of Care Management/Slag Skimmer(CM) Home IV Antibiotic Therapy Referral Note. ??Office of Care Management/ Slag Skimmer(CM) Infusion Room Referral for Outpatient IV Antibiotic Therapy Report received from Dr. Merle Alcantara-Dereje that patient will require continued home IV antibiotic therapy after discharge from the hospital.?? Met with patient at bedside and spoke with spouse Mara via phone to discuss options for post discharge IV antibiotic therapy.?? Patient would be appropriate for continued infusion at an Outpatient Infusion Room.? Reviewed Infusion Room options near patient???s address.?? Patient requested referral to: 1. [facility] ? Infusion Suite (Jolly) ? Telephone call to Jolly at 12:00. ??Confirmed with Jolly availability of service. Documentation faxed to Infusion Room via edischarge as follows: OPAT and PICC upholsterer assembly line protocol Patient to report to 1. [facility] in [facility] ? Infusion Suite (Jolly) ?on Thursday11/17/15 at (spouse Mara instructed to contact Jolly at above number to schedule time) time. Diabetic Status: Patient is not a diabetic. IV access: Type of line: right basilic vein PICC Date placed: 11/16/15 at 8:22 am CM signature ?? CM MAVERICK Alvarez, pattern technician [facility] pgr [phone] * Patient Instructions* Merle Alva MD - 11/15/2015 10:46 AM EDT DISCHARGE INSTRUCTIONS FOLLOWING A TRANSPLANT Patient Instructions: 1. Notify the transplant team of fever (temperature > 100.0), redness, swelling, new drainage, worse pain, nausea, vomitting, diarrhea, constipation, shaking/tremor, sleepiness, insomnia, cough, difficulty urinating, burning with urination, frequent need to urinate, chest pain, shortness of breath, or other concern. 2. Do not start or stop any medications without notifying the transplant team. This can affect the level of your immunosuppression, which is dangerous. 3. Monitor the medications you are on and otain refills ahead of time. You should not miss a dose of immunosuppression for any reason. Call several days ahead to place refill requests. CARDIOLOGY You had a fast rate during your stay with us. We have arranged for followup with Dr. Brown, a Preparator who specializes in transplant patients. ANTIBIOTICS You are being discharged with a prescription for IV antibiotics. You will take Ampicillin every 4 hours through a pump. You will need to continue this IV Antibiotic treatment for 2 weeks. A PICC linewas placed in the hospital for the administration of this IV medication. WEEKLY DRESSING CHANGE AND LABS You will need to have your PICC line dressing changed weekly and labs drawn weekly. There is a prescription for these procedures at [facility]. Your first dressing change and lab draw should happen on , November 22, 2015. Scheduled Appointments: You are scheduled to receive routine follow-up care in the transplant clinic: Solid Organ Transplant Department [facility], [address] [address] Future Appointments Future Appointments Date Time Provider Department Center 11/20/2015 9:00 AM TRANSPLANT, COORDINATOR Leb Trans [facility] 11/20/2015 10:00 AM Que Amaro MD Leb Trans [facility] 12/11/2015 9:30 AM LAB, THREE L Lab 3L [facility] 12/11/2015 10:30 AM Tal Eagle MD Leb Trans 2[facility] 01/03/2016 3:30 PM Byron Brown MD Leb Cardio [facility] 01/04/2016 3:30 PM LAB, THREE L Lab 3L [facility] 01/04/2016 4:30 PM Tulio Marcelo MD Leb Gastro [facility] 09/15/2016 9:00 AM LAB, THREE L Lab 3L [facility] 09/15/2016 10:00 AM Tal Eagle MD Leb Trans 2[facility] LAB DRAWS: Prior to each clinic visit, [...] the message. You can also reach the nursing staff development coordinator after hours by calling (ask for the nursing staff development coordinator on-call). documented in this encounter Medications [...] as of this encounter Progress Notes * Angela Rendon, RN - 11/16/2015 5:00 PM EDT Patient discharged to home with no services. IV removed, site benign. PICC line remained in for OPAT. Orderes faxed by team to infusion suite. Pt denies CP or SOB. Discussed pain management with patient, denies pain. Patient has all belongings and supplies needed. Discharge instructions and prescriptions were given and reviewed. Patient verbalizes understanding. Patient encouraged to call with questions or concerns. Patient left floor via wheelchair per staff. * Samia Escalante RN - 11/16/2015 4:58 PM EDT Adjusted medication schedule provided to patient and his . Orders faxed to [facility] for pt's PICC dressing changes. He has current standing orders for weekly draws and will use these next week forhis repeat CBC/CMP. Pt and understand the medication changes and plan for antibiotics and do not have questions atthis time. Samia Escalante, JAD[facility] Solid Organ Transplant [phone] (Pager: [phone]) * Ramez Serrano DO - 11/16/2015 1:02 PM EDT Infectious Disease Progress Note Call from team that patient unable to pay for home antibiotic infusion and unwilling to go to rehab. Will therefore plan to complete therapy with Daptomycin which he can go to infusion suite daily toget and will be covered by his insurance. This would not be our first choice treatment for sensitive enterococcus but an alternative. Recommendations: - Stop Ampicillin - Start Daptomycin 6mg/kg IV q24 hours (he needs first dose to be given before discharge) - Please check CPK prior to discharge - Will need weekly CBC, CMP, CPK - Duration of therapy unchanged - 2 weeks ending 11/26 - We will delete prior OPAT order and place new one Ramez Serrano DO, MPH Infectious Disease * Claribel Roberts RN - 11/16/2015 11:38 AM EDT Office of Care Management Discharge Progress Note contacted patient spouse and verified decline for home health services. Carli Hanley RN agent with [facility] spoke with patient in CM office and reviewed with spouse Mara what [facility] would provide andwhat she would be responsible for including daily PICC saline flush between hanging new IV ABX and reconnecting pump to patient. Per Carli patient is in agreement with performing daily saline PICC flushes between changing IV ABX. [facility] has arrange for teaching patient and spouse Mara saline flush and changing IV ABX bag tomorrow 11/17/[address] Fung and floor nurse notified. MAVERICK Anne, pattern technician of Care Management pgr [phone] * Claribel Roberts RN - 11/16/2015 11:09 AM EDT Office of Care Management Progress Note Office of Care Management/Slag Skimmer(CM) Home IV Antibiotic Therapy Referral Note. Office of Care Management/ Slag Skimmer(CM) Infusion Room Referral for Outpatient IV Antibiotic Therapy Report received from Dr. Merle Fung that patient will require continued home IV antibiotic therapy after discharge from the hospital. Met with patient at bedside and spoke with spouse Mara via phone to discuss options for post discharge IV antibiotic therapy. Patient would be appropriate for continued infusion at an Outpatient Infusion Room. Reviewed Infusion Room options near patient???s address. Patient requested referral to: 1. [facility] Infusion Suite (Jolly) Telephone call to Jolly at 12:00. Confirmed with Jolly availability of service. Documentation faxed to Infusion Room via edischarge as follows: OPAT and PICC upholsterer assembly line protocol Patient to report to 1. [facility] in [facility] Infusion Suite (Jolly) on Thursday11/17/15 at (spouse Mara instructed to contact Jolly at above number to schedule time) time. Diabetic Status: Patient is not a diabetic. IV access: Type of line: right basilic vein PICC Date placed: 11/16/15 at 8:22 am DEVORA signature MAVERICK Anne, pattern technician of Care Managemnt pgr [phone] * Claribel Roberts RN - 11/16/2015 9:46 AM EDT Office of Care Management Discharge Progress Note Patient would benefit from acute/SNF/swing/LTAC rehab at discharge. Full Disclosure Statement provided, as appropriate. ?? Met with patient at bedside and left VM for spouse Mara. Provided [facility], Office of Care Management letter from the Program Associate pertaining to rehab referrals.. ?? Reviewed levels of rehab including SNF, swing, acute and LTAC. ?? A list that serves the geographical area which the patient resides or the geographical area requested has been provided through [employer] search. ?? Requested patient and Mara provide at least three choices for referral. ?? Patient request referrals to: 1. [facility] swing bed 2. [facility] swing bed Note routed to [employer] who will communicate referrals to facilities via [facility] program. MAVERICK Anne, pattern technician of Care Management pgr [phone] MAVERICK Anne, pattern technician of Care Management pgr [phone] * Tal Eagle MD - 11/16/2015 9:42 AM EDT Transplant Surgery Resident Inpatient Progress Note ID: Ethel Akins is a 65 y.o. male s/p kidney transplant on 09/16/2015, admitted with high fevers 24hr events: Patient is doing quite well this morning. No fevers. Heartburn last night which is typical for him O: Last value Range last 24hrs Temperature Temp: 36.4 ??C (97.5 ??F) Temp: [36.4 ??C (97.5 ??F)-37.1 ??C (98.8 ??F)] Heart Rate Heart Rate: 68 Heart Rate: [56-70] Blood Pressure BP: 145/78 mmHg BP: (145-168)/(67-86) Respiratory Rate Resp: 18 Resp: [18] SpO2 SpO2: 98 % SpO2: [92 %-99 %] 11/14 0701 - 11/15 0700 In: 1655 [P.O.:1280; I.V.:375] Out: 3200 [Urine:2600] Physical Exam: General: NAD, resting comfortably in bed HEENT: PERRL, anicteric sclerae CVS: RRR Pulm: CTAB Abd: soft, nontender, non-distended Skin: warm, dry Ext: no c/c/e, cap refill <2sec Neuro: CN 2-12 grossly intact, nonfocal,moving all four extremities spontaneously Recent Labs 11/16/15 0525 11/15/15 0614 11/14/15 0518 WBC 5.5 6.3 8.6 HGB 13.1* 12.8* 13.2* HCT 37.8* 36.0* 38.0* PLATELET 233 215 223 Recent Labs 11/16/15 0525 11/15/15 0614 11/14/15 0518 NA 141 138 135 K 4.7 4.1 3.9 CL 104 102 98 CO2 24 23 23 BUN 17 12 13 CREATININE 1.36 1.28 1.47 GLUCOSE 146 139 168 CALCIUM 9.2 8.6 8.7 MAGNESIUM 0.62* 0.55* 0.59* PHOS 2.3* 1.8* 1.6* NEW IMAGING: Renal U/S - 11/13 - Impression ??Transplant Kidney Summary ??1.?? New mild pelviectasis. ??2.?? No peritransplant collection or renal mass seen. ??3.?? Persistent and largely unchanged nonspecific elevated ??intrarenal resistive indices. ??4.?? Patent main renal artery and vein. ASSESSMENT: Ethel Akins is a 65 y.o. male s/p DD kidney transplant, enterococcal bacteremia with sepsis in an immune compromised host PLAN: ID ok with daptomycin infusion so hopefully DC today with PICC and plan for IV abx at [facility] infusion suite. CRC is working on coverage. Will get picc this morning Immune suppression Cellcept 500mg BID Tacrolimus 09/04 (level 11/13 9.0) NEURO: Tylenol PRN CV: Diltiazem ER 120mg PULM: no issues GI: regular diet FEK: HLIV. Magnesium 1g TID. Calcitriol 0.5 mcg BID. ID: Ampicillin IV can switch to daptomycin HEME: Plavix ENDO: Levothyroxine PROPHYLAXIS: SQH BID. Bactrim and Valcyte DISPO: floor status. I reviewed all of the above findings and assessment of Dr. Dereje Alcantara, examined the patient and formulated the recommendations which accurately reflect mine. * Brenda Masterson RN - 11/16/2015 6:19 AM EDT Tele Note: Pt denies chest discomfort, SOB, nausea. NSR, HR regular, rare PVC's, rate 60- 80. Tolerating rate and rhythm. Administered cardiac medications per orders/parameters. Notify MD of changes, will continue to monitor. * Ramez Serrano DO - 11/15/2015 9:39 AM EDT INFECTIOUS DISEASE FOLLOW-UP NOTE Active ID Issue(s): Enterococcus bacteremia Renal transplant in 09/2015 Consulting Service/Team Pager: Transplant Consulting Attending: Tal Eagle MD Admission Date: 11/12/2015 Antimicrobial Therapy: Ampicillin 2g IV q4hr Intercurrent Events/Subjective Data: - Blood cultures from 11/12 no growth to date - Feels improved from prior, fevers resolved, urinary symptoms resolved, has more energy Physical Exam: Last value Range last 24 hrs Temperature Temp: 36.8 ??C (98.2 ??F) Temp: [36.8 ??C (98.2 ??F)-38.1 ??C (100.6 ??F)] Heart Rate Heart Rate: 74 Heart Rate: [66-150] Blood Pressure BP: 134/80 mmHg BP: (134-162)/(61-93) Respiratory Rate Resp: 18 Resp: [18-20] SpO2 SpO2: 97 % SpO2: [91 %-97 %] General: NAD, sitting in chair, appears improved from prior HEENT: NC/AT, MM moist, neck supple Cardiovascular: Normal S1 and S2, no m/r/g Abd: Normoactive BS, soft, surgical incision healing well with no erythema, L sided renal transplant minimally TTP, improved from prior Extrem: No LE edema Neuro: A&Ox3, no focal deficits Skin: Warm and dry without splinter hemorrhages or other stigmata of endocarditis Laboratory: Recent Labs 11/15/15 0614 11/14/15 0518 11/13/15 0730 WBC 6.3 8.6 9.6 HGB 12.8* 13.2* 13.0* HCT 36.0* 38.0* 36.3* PLATELET 215 223 214 Recent Labs 11/15/15 0614 11/14/15 0518 11/13/15 0730 NA 138 135 133* K 4.1 3.9 3.0* CL 102 98 98 CO2 23 23 21* BUN 12 13 16 CREATININE 1.28 1.47 1.71* Recent Labs 11/15/15 0614 11/14/15 0518 11/13/15 0730 CALCIUM 8.6 8.7 8.2* PHOS 1.8* 1.6* 1.6* Microbiology: 11/11: Blood--Enterococcus species, S to amp, dapto, PCN, vanc 11/12: Blood--NG x 1 day 11/13: Blood--pending 11/11: Urine-- >100k Enterococcus species, simmons-sensitive 11/07: Urine--10-49k Enterococcus species, S to amp, cipro, dapto, levofloxacin, nitrofurantoin, PCN,vanc Radiology/Studies/Procedures: 11/13: Renal U/S--1.?? New mild pelviectasis. ??2.?? No peritransplant collection or renal mass seen. ??3.?? Persistent and largely unchanged nonspecific elevated??intrarenal resistive indices. ??4.?? Patent main renal artery and vein. Assessment: Ethel Akins is a 65 y.o.male with history of HCV, h/o stroke, CKD secondary to HTN s/p donor renal transplant on 09/2015 who presents with Enterococcus bacteremia. He appears to have cleared his cultures and is symptomatically improved. We plan on treating him for 2 weeks for a severeUTI leading to bacteremia. He will need to be discharged on ampicillin as that is the drug of choice for Enterococcal bacteremia with these sensitivities. Ideally, he can go home with it on a pump, but if that is not an option and payment is a barrier, the only alternative would be to go to a swingbed. We will place OPAT and sign off; please call with questions. Recommendations: - Continue ampicillin 2g IV q4hr - Place single lumen PICC - Duration 2 weeks--11/12 to 11/26 - Weekly CBC, CMP for drug monitoring Recommendations discussed with primary treating team. ID consult service will continue to follow. Page [phone] with questions or concerns. X Recommendations are above. ID will sign off. If clinical changes occur or new questions arise, page [phone]. Patient discussed with ID attending Dr. Sarai BECK MD Fellow, Infectious Disease 11/15/2015 Pager [phone] I have seen the patient and reviewed the above history and physical and I agree with the details aswritten. The assessment and plan were formulated in discussion with me and I agree with them as documented. Enterococcal transplant pyelonephritis with bacteremia. Blood cultures cleared 11/12. Plan for 2 weeks of IV antibiotics. There is really no flexibility with drug choice for enterococcus. We had a long discussion with the patient and the CRC about discharge planning. All of us would prefer he be able to go home but insurance is not willing to pay. Patient is willing to pay out of pocket expense but needs to talk to his . The only other option with q4 dosing would be acute care swing bed because SNF cannot administer q4 drug. Please let us know how else we can help facilitate discharge. We will arrange OPAT follow up. Ramez Serrano DO, MPH Infectious Disease * Tal Eagle MD - 11/15/2015 8:52 AM EDT Transplant Surgery Resident Inpatient Progress Note ID: Ethel Akins is a 65 y.o. male s/p kidney transplant on 09/16/2015, admitted with high fevers 24hr events: Feeling much improved this morning. Fever curve improved. Elevated HR to 150s yesterday, converted on its own. Question of a fib but EKG shows sinus. O: Last value Range last 24hrs Temperature Temp: 36.8 ??C (98.2 ??F) Temp: [36.8 ??C (98.2 ??F)-38.1 ??C (100.6 ??F)] Heart Rate Heart Rate: 74 Heart Rate: [66-150] Blood Pressure BP: 134/80 mmHg BP: (134-162)/(61-93) Respiratory Rate Resp: 18 Resp: [18-20] SpO2 SpO2: 97 % SpO2: [91 %-97 %] 11/13 0701 - 11/14 0700 In: 1843.6 [P.O.:600; I.V.:1243.6] Out: 2925 [Urine:2925] Physical Exam: General: NAD, resting comfortably in bed HEENT: PERRL, anicteric sclerae CVS: RRR Pulm: CTAB Abd: soft, nontender, non-distended Skin: warm, dry Ext: no c/c/e, cap refill <2sec Neuro: CN 2-12 grossly intact, nonfocal,moving all four extremities spontaneously Recent Labs 11/15/1561311/14/1551711/13/15 0711/12/15 1425 WBC 6.3 8.6 9.6 10.1* HGB 12.8* 13.2* 13.0* 14.5 HCT 36.0* 38.0* 36.3* 41.3 PLATELET 215 223 214 268 Recent Labs 11/15/1561311/14/1551711/13/15 0730 11/12/15 1425 NA 138 135 133* 137 K 4.1 3.9 3.0* 4.0 CL 102 98 98 99 CO2 23 23 21* 20* BUN 12 13 16 20 CREATININE 1.28 1.47 1.71* 2.02* GLUCOSE 139 168 238* -- CALCIUM 8.6 8.7 8.2* 9.3 MAGNESIUM 0.55* 0.59* 0.40* -- PHOS 1.8* 1.6* 1.6* -- NEW IMAGING: Renal U/S - 11/13 - Impression ??Transplant Kidney Summary ??1.?? New mild pelviectasis. ??2.?? No peritransplant collection or renal mass seen. ??3.?? Persistent and largely unchanged nonspecific elevated ??intrarenal resistive indices. ??4.?? Patent main renal artery and vein. ASSESSMENT: Ethel Akins is a 65 y.o. male s/p DD kidney transplant, enterococcal bacteremia, sepsis in an immune compromised host PLAN: Negative blood cultures x 24 hours. If PO intake improves today, likely DC tomorrow with PICCand plan for IV abx at [facility] infusion suite. Start Calcitriol and increase Mag repletion today. Will talk to Francisco Brown (Transplant Preparator) about HR Immune suppression Cellcept 500mg BID Tacrolimus 09/04 (level 11/13 9.0) NEURO: Tylenol PRN CV: Diltiazem ER 120mg. Discuss elevated HR with Cardiology PULM: no issues GI: regular diet FEK: HLIV. Magnesium 1g TID. Calcitriol 0.5 mcg BID. ID: Ampicillin IV HEME: Plavix ENDO: Levothyroxine PROPHYLAXIS: SQH BID. Bactrim and Valcyte DISPO: floor status. I reviewed all of the above findings and assessment of Dr. Dereje Alcantara, examined the patient and formulated the recommendations which accurately reflect mine. * Brenda Masterson RN - 11/15/2015 6:18 AM EDT Tele Note: Pt denies chest discomfort, SOB, nausea. Afib, rate 65-90. Tolerating rate and rhythm. Administeredcardiac medications per orders/parameters. Notify MD of changes, will continue to monitor. * Ethel Benitez RN - 11/14/2015 6:32 PM EDT Floor Nurses Remote cardiac temetry note: Please see sheets attached to pt's chart. Notified by teletype operator mid shift that pt had increase ectopy. Then went into rapid A-fib sustained in the 140 150's.VS taken, BP within norm, denied chest pain, SOB or palpitations. Dr. Reyez notified, also Dr. Wagner but by time call back received, pt had converted to sinus. No further interventions done. Will cont tele. * Claribel Roberts RN - 11/14/2015 4:29 PM EDT Office of Care Management Discharge Progress Note CM spoke with spouse Mara, regarding potential discharge home with IV ABX. Spouse states she prefers to drive patient to [facility] for out patient infusion if possible due to coverage issues. Spouse stated they are still paying on patient's home infusion bill from last time. CM notified Dr. Dereje Alcantara, of patient/spouse preference and payor barrier. CMcontacted [facility] ([phone], fax [phone]) spoke with Le and provided requested info: patient name, , insurance, home phone, MD. Le will contact patient to set-up out patient infusion times tomorrow upon receiving faxed MD order from ID.Dr. Dereje Alcantara notified. DEVORA Roberts, BSN, pattern technician of Care Management pgr [phone] * Tal Eagle MD - 11/14/2015 1:38 PM EDT Transplant Surgery Resident Inpatient Progress Note ID: Ethel Akins is a 65 y.o. male s/p kidney transplant on 09/16/2015, admitted with high fevers 24hr events: ?? Enterococcus in urine and blood ?? Transplant ID recommended ampicillin IV and renal U/S Subjective: States he is still not feeling well. Afebrile. O: Last value Range last 24hrs Temperature Temp: 37.7 ??C (99.9 ??F) Temp: [37 ??C (98.6 ??F)-39.1 ??C (102.4 ??F)] Heart Rate Heart Rate: 150 Heart Rate: [63-150] Blood Pressure BP: (!) 153/93 mmHg BP: (133-162)/(57-93) Respiratory Rate Resp: 20 Resp: [18-20] SpO2 SpO2: 93 % SpO2: [93 %-97 %] 11/12 07 - 11/13 0700 In: 4578 [P.O.:2466; I.V.:1645.3] Out: 3050 [Urine:3000] Physical Exam: General: NAD, resting comfortably in bed HEENT: PERRL, anicteric sclerae CVS: RRR Pulm: CTAB Abd: soft, nontender, non-distended Skin: warm, dry Ext: no c/c/e, cap refill <2sec Neuro: CN 2-12 grossly intact, nonfocal,moving all four extremities spontaneously Recent Labs 11/14/15 0518 11/13/15 0730 11/12/15 1425 WBC 8.6 9.6 10.1* HGB 13.2* 13.0* 14.5 HCT 38.0* 36.3* 41.3 PLATELET 223 214 268 Recent Labs 11/14/15 0518 11/13/15 0730 11/12/15 1425 NA 135 133* 137 K 3.9 3.0* 4.0 CL 98 98 99 CO2 23 21* 20* BUN 13 16 20 CREATININE 1.47 1.71* 2.02* GLUCOSE 168 238* -- CALCIUM 8.7 8.2* 9.3 MAGNESIUM 0.59* 0.40* -- PHOS 1.6* 1.6* -- NEW IMAGING: ?? ASSESSMENT: Ethel Akins is a 65 y.o. male s/p DD kidney transplant, enterococcal sepsis in animmune compromised recipient PLAN: Followup with transplant ID recs for discharge antibiotic regimen. Follow up on results of Renal Ultrasound. Immune suppression Cellcept 500mg BID Tacrolimus 09/04 NEURO: Tylenol PRN CV: Diltiazem ER 120mg PULM: no issues GI: regular diet FEK: HLIV ID: Ampicillin IV HEME: Plavix ENDO: Levothyroxine PROPHYLAXIS: SQH BID. Bactrim and Valcyte DISPO: floor status. I reviewed all of the above findings and assessment of Dr. Dereje Alcantara, examined the patient and formulated the recommendations which accurately reflect mine. * Angela Rendon RN - 11/13/2015 7:00 PM EDT Tele note: S: Pt denying dizziness, SOB or chest pain. O: Please see charts for tele strips. Frequent bursts of SVT. A: Pt appears to tolerate current rate and rhythm P: Continue to monitor on telemetry. Electrolytes being replaced and pt receiving scheduled Dilt. * Claribel Roberts RN - 11/13/2015 3:54 PM EDT Office of Care Management (OCM) / Slag Skimmer(CM)/ Initial Assessment Discussed patient with Provider Team and in multidisciplinary discharge-planning rounds. Reviewed record and interviewed patient at bedside and Mara via phone. Introduced/reviewed CM role and services accepted. REASON for HOSPITALIZATION: Ethel Akins ( ) is a 65 y.o. male s/p DDKT on 09/15 now 8wks post-op, immunosuppressed on prograft and cellcept, presents with fevers, FTT, postive urine culture. (11/13/15 Dr. Eagle H&P) Plan: - admit to transplant, floor status - continue vanc-zosyn - continue all transplant meds ?- cellcept 500mg BID ?- prograft 3mg qAM, 2mg qPM ?- mag-ox and k-phos - NS @ 75 - regular diet - ISS -check for post void residuals, start Flomax 0.4 mg daily PMH Past Medical History Diagnosis Date ??? Type 2 diabetes mellitus ??? HTN (hypertension) ??? ESRD (end stage renal disease) ??? Microhematuria ??? Colon polyp ??? GERD (gastroesophageal reflux disease) ??? Back pain ??? CVA (cerebral vascular accident) Per report but no deficits PREVIOUS FUNCTIONAL STATUS: Independent with all ADL's CURRENT FUNCTIONAL STATUS:SBA for ADL's SOCIAL / FAMILY SUPPORTS: Lives with spouse Mara who was primary child care education coordinator post kidney transplant8 weeks ago. ADVANCE DIRECTIVES: None on file. Full Code. HEALTH /PRESCRIPTION COVERAGE: Active Insurance as of 11/12/2015 ? Primary Coverage ? Payor Plan Insurance Group Employer/Plan Group ? MEDICARE MEDICARE PART A & B ? Payor Plan Address Payor Plan Phone Number Effective From Effective To ? [address] [place] [address] 08/06/2013 ? [place] [address] ? Subscriber Name Subscriber Date Member ID ? ETHEL AKINS 1950 [id number] ? Secondary Coverage ? Payor Plan Insurance Group Employer/Plan Group ? [facility] [employer] PPO [id number] ? Payor Plan Address Payor Plan Phone Number Effective From Effective To ? [address] 11/03/2013 ? [place] [address] ? Subscriber Name Subscriber Date Member ID ? ETHEL AKINS 1950 [id number] ? Visit Level Coverage Information ? Payor Plan Plan Phone Plan [facility] ? MEDICARE MEDICARE PART A & B [phone] [place] [address]] [id number] ? CURRENT HOME/COMMUNITY SERVICES/EQUIPMENT: DME:[facility] - Not happy with 2/2 co-pay issues and delivery of supplies not used. Home Health Agency: [facility] - Not happy with 2/2 SN came 3 times and never came back or explained why services were no longer needed. Other: [facility] Transplant Organ Clinic VULCANIZER OPERATOR REFERRAL: Not needed at this time. PRIMARY CARE PHYSICIAN: ALBANIA DENIS, [address] / [place] [address] POTENTIAL DISCHARGE NEEDS: Spoke with patient Mara ([phone]) regarding possible discharge needs. Spouse stated she didn't want to use home health again and would drive patient to clinic every day if needed. Patient currently with UTI with positive culture receiving IV ABX via peripheral line, abnormal electrolytes, nausea, bladder with burning/incontinence. CM will continue to work with patient and spouse on community resource needs closer to discharge. ANTICIPATED BARRIERS TO DISCHARGE: None TRANSPORTATION @ D/C: Mara via car PLAN: CM will continue to monitor progress, follow for continuity of care and assist with dischargeplanning while hospitalized MAVERICK Anne, pattern technician of Care Management pgr [phone] * Tal Eagle MD - 11/13/2015 10:31 AM EDT Transplant Surgery Resident Inpatient Progress Note ID: Ethel Akins is a 65 y.o. male s/p kidney transplant on 09/16/2015, admitted with high fevers 24hr events: ?? Urine and blood cultures with enterococcus ?? Fever resolved overnight ?? In and out of SVT, completely asymptomatic Subjective: states he still feels crummy this morning. Afebrile. No N/V overnight. O: Last value Range last 24hrs Temperature Temp: 36.8 ??C (98.2 ??F) Temp: [36.8 ??C (98.2 ??F)-39.3 ??C (102.7 ??F)] Heart Rate Heart Rate: 70 Heart Rate: [70-126] Blood Pressure BP: 109/82 mmHg BP: (108-190)/(50-107) Respiratory Rate Resp: 22 Resp: [18-43] SpO2 SpO2: 96 % SpO2: [90 %-97 %] 11/11 0701 - 11/12 0700 In: 987 [I.V.:987] Out: 1165 [Urine:1125] Physical Exam: General: NAD, resting comfortably in bed HEENT: PERRL, anicteric sclerae CVS: RRR Pulm: CTAB Abd: soft, nontender, non-distended Skin: warm, dry Ext: no c/c/e, cap refill <2sec Neuro: CN 2-12 grossly intact, nonfocal,moving all four extremities spontaneously Recent Labs 11/13/15 0730 11/12/15 1425 WBC 9.6 10.1* HGB 13.0* 14.5 HCT 36.3* 41.3 PLATELET 214 268 Recent Labs 11/13/15 0730 11/12/15 1425 NA 133* 137 K 3.0* 4.0 CL 98 99 CO2 21* 20* BUN 16 20 CREATININE 1.71* 2.02* GLUCOSE 238* -- CALCIUM 8.2* 9.3 MAGNESIUM 0.40* -- PHOS 1.6* -- NEW IMAGING: ?? ASSESSMENT: Ethel Akins is a 65 y.o. male s/p DD kidney transplant, now with bacteremia and high fevers consistent with either urosepsis or skin induced sepsis associated with shock in recovery. ? prostatitis PLAN:Will start patient on flomax to improve bladder emptying and check PVRs. Contact transplant IDfor antibiotic recommendations as patient is immune suppressed and bacteremic. Immune suppression Cellcept 500mg BID Tacrolimus 09/04 NEURO: Tylenol PRN CV: Diltiazem ER 120mg PULM: no issues GI: regular diet FEK: NS @ 75/hr ID: Vanc/Zosyn HEME: Plavix ENDO: Levothyroxine PROPHYLAXIS: SQH BID. Bactrim and Valcyte DISPO: floor status. I reviewed all of the above findings and assessment of Dr. Dereje Alcantara, examined the patient and formulated the recommendations which accurately reflect mine. * Tal Eagle MD - 11/13/2015 9:30 AM EDT Transplant Service Progress Note Reason for consultation: Kidney transplant ID: Mr. Akins is a 65 yr ol gentleman s/p Kidney transplant on 09/16/2015 (Kidney).?? S: Patient feeling well today. Has BPH symptoms. O: Filed Vitals: 11/13/15 0820 BP: 109/82 Pulse: 70 Temp: 36.8 ??C (98.2 ??F) Resp: 22 Gen: alert, oriented Neck: supple, no JVD CVS: S1 S2 normal, RRR, no murmur/rub/gallop Respi: clear to auscultation bilaterally Extr: No pedal edema, pulse 2+ all extremities Neuro: No astrexis I/O last 3 completed shifts: In: 987 [I.V.:987] Out: 1165 [Urine:1125; Emesis/NG output:40] I/O this shift: In: 869.3 [P.O.:596; I.V.:273.3] Out: 50 [Urine:50] Labs: Lab Results Component Value Date WBC 9.6 11/13/2015 RBC 4.00* 11/13/2015 HGB 13.0* 11/13/2015 HCT 36.3* 11/13/2015 MCV 90.8 11/13/2015 MCH 32.5* 11/13/2015 MCHC 35.8 11/13/2015 PLATELET 214 11/13/2015 RDWCV 14.0 11/13/2015 Lab Results Component Value Date SODIUM 133* 11/13/2015 POTASSIUM 3.0* 11/13/2015 CHLORIDE 98 11/13/2015 CO2 21* 11/13/2015 BUN 16 11/13/2015 CREATININE 1.71* 11/13/2015 GLUCOSE LVL 238* 11/13/2015 Lab Results Component Value Date PHOS 1.6* 11/13/2015 Lab Results Component Value Date PTH 164* 07/11/2014 CALCIUM 8.2* 11/13/2015 PHOS 1.6* 11/13/2015 Assessment & Plan: Mr. Akins is a 65 yr old gentleman s/p kidney transplant who presents to [facility] for fever, weakness, urinary incontinence. Bacteremia/UTI -BC/UC+ Enterococcus -On Vancomycin, Zosyn -Febrile yest, no leukocytosis -Start Flomax for BPH -Check postvoid residual -Transplant ID consult Transplant status -s/p kidney transplant 09/20/15 -Creat improved 1.71mg/dL -Nonoliguric 1.1L urine Immunosuppression -Prograf 3mg/2mg -Cellcept 500mg BID Mag/Phos -Mag 0.40. On Mag ox 400mg BID, given Mag 2g IV x2 -Phos 1.6. Kphos 500 BID Hypertension -BP 120-160s -Diltiazem Shadi Wagner, Nephrology Fellow Pager # [phone] Case was d/w Dr. Eagle I reviewed all of the above findings and assessment of Dr. Haile, examined the patient and formulated the recommendations which accurately reflect mine. documented in this encounter H&P Notes * Tal Eagle MD - 11/12/2015 8:16 PM EDT Images from the original note were not included. Transplant Surgery Service History and Physical Admitted From: ED History of Present Illness: Ethel Akins ( ) is a 65 y.o. male with hep C, past CVA on plavix, ESRD due to hypertension s/p DDKT on 09/16/15 (8 weeks ago), now presents with 2 days dizziness, weakness, fever, fatigue, poor appetite, urinary incontinence. Symptoms began Thursday andhave not improved, his suggested he present to the ED. Has had some sinus congestion recently. Reportedly had a fever of 101 at home. Has never had problems with urinary incontinence before and not having other urinary symptoms. Had a UCx done in clinic on the as a matter of routine that is now growing enteroccocus. Review of Systems: 10 systems reviewed, positive as above and otherwise negative. Past Medical History: Past Medical History Diagnosis Date ??? Type 2 diabetes mellitus ??? HTN (hypertension) ??? ESRD (end stage renal disease) ??? Microhematuria ??? Colon polyp ??? GERD (gastroesophageal reflux disease) ??? Back pain ??? CVA (cerebral vascular accident) Per report but no deficits Past Surgical History: Past Surgical History Procedure Laterality Date ??? Pro anastomosis, av, any site Left 05/09/2015 AV FISTULA CREATION, DIRECT HEMODIALYSIS, ANY SITE, EG ASHWINI FISTULA UPPER EXTREMITY performed by Que Amaro MD at [facility] MAIN OR ??? Pro transplantation of kidney N/A 09/16/2015 @KIDNEY TRANSPLANT, WITHOUT RECIPIENT NEPHRECTOMY performed by Franko Larkin MD at [facility] MAIN OR ??? Pro transplant, prep cadaver renal graft N/A 09/16/2015 @PREPARATION CADAVERIC RENAL ALLOGRAFT performed by Franko Larkin MD at [facility] MAIN OR ??? N/A 09/16/2015 ORGAN ACQUISITION RENAL, CADAVERIC performed by Franko Larkin MD at [facility] OR Allergies: No Known Allergies Home Medications: No current facility-administered medications on file prior to encounter. Current Outpatient Prescriptions on File Prior to Encounter Medication Sig Dispense Refill ??? mycophenolate (CELLCEPT) 250 mg Capsule Take 2 capsules by mouth 2 times daily. Kidney replacedby transplant 09/16/2015. Z94.0 120 capsule 11 ??? valGANciclovir (VALCYTE) 450 mg Tablet Take 1 tablet by mouth daily for 183 days. 30 tablet 6 ??? potassium phosphate, monobasic, (K-PHOS ORIGINAL) 500 [...] TOUCH DELICA LANCETS 30 gauge Misc 0 Family History: History reviewed. No pertinent family history. Social History: History Social History ??? Marital Status: Spouse Name: N/A Number of Children: N/A ??? Years of Education: N/A Occupational History ??? Not on file. Social History Main Topics ??? Smoking status: Former Smoker Types: Cigars ??? Smokeless tobacco: Never Used Comment: cigars, only sometimes ??? Alcohol Use: No ??? Drug Use: No ??? Sexual Activity: Not on file Other Topics Concern ??? Not on file Social History Narrative Vitals: Last value Temperature Temp: 39.3 ??C (102.7 ??F) Heart Rate Heart Rate: 126 Blood Pressure BP: (!) 175/107 mmHg Respiratory Rate Resp: 18 SpO2 SpO2: 94 % Physical Exam: General: resting comfortably in no acute distress. HEENT: sclera anicteric, MMM. Neuro: Awake, alert, responds to questions appropriately, CN II-XII grossly intact, moving all fourextremities spontaneously. CV: RRR, +S1S2. Pulm: CTAB, normal effort, no respiratory distress. GI: Soft, non-tender, non-distended. Well healed LLQ surgical incision w/o SOI. MSK: no clubbing or cyanosis in bilateral upper extremities. Skin: warm, dry. Labs: Recent Labs 11/12/15 1425 11/08/15 0849 WBC 10.1* 8.0 HGB 14.5 14.0 HCT 41.3 41.1 PLATELET 268 279 Recent Labs 11/12/15 1425 11/08/15 0849 NA 137 141 K 4.0 4.4 CL 99 104 CO2 20* 23 BUN 20 23* CREATININE 2.02* 1.89* GLUCOSE -- 162 Recent Labs 11/12/15 1425 11/08/15 0849 CALCIUM 9.3 9.1 MAGNESIUM -- 0.69 PHOS -- 2.7 Recent Labs 11/08/15 0849 AST 22 ALT 25 ALKPHOS 83 BILITOT 0.7 BILIDIR <0.1 Micro: ?? Urine culture [[id number]] (Abnormal) Collected: 11/08/15 0855 ? Lab Status: Final result Specimen Information: Urine NS Updated: 11/10/15 1243 ? Urine Culture ? Result: ? 10,000-49,000 cfu/ml Enterococcus species (A) ? Organism Enterococcus species (A) ? Susceptibility ? Enterococcus species ? MICROSCAN METHOD ? Ampicillin Sensitive ? Ciprofloxacin Sensitive ? Daptomycin 2 Sensitive ? Gentamicin 500 Sensitive ? Levofloxacin Sensitive ? Nitrofurantoin Sensitive ? Penicillin Sensitive ? Streptomycin 1000 Sensitive ? Tetracycline Resistant ? Vancomycin Sensitive ? Blood and urine cultures sent in ED. Antibiotics: Started on vanc-zosyn. Imaging/Studies: None. Assessment: Ethel Akins ( ) is a 65 y.o. 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 Plan: - admit to transplant, floor status - continue vanc-zosyn - continue all transplant meds - cellcept 500mg BID - prograft 3mg qAM, 2mg qPM - mag-ox and k-phos - NS @ 75 - regular diet - ISS -check for post void residuals, start Flomax 0.4 mg daily Conrad Gray MD PGY-2 Pager #[phone] 11/12/2015 I reviewed all of the above findings and assessment of Dr. Gray, examined the patient and formulated the recommendations which accurately reflect mine. documented in this encounter Procedure Notes * Ginny Toro RN - 11/16/2015 8:22 AM EDTAssociated Order(s): PLACE PICC LINE: CONTACT VASCULAR ACCESS PICC/Midline Insertion Procedure Note Indications: Anti-infective and Medication Administration This insertion was not to replace a [...] to the planned procedure. Hand Hygiene: The rn paralegal did perform hand hygiene prior to line insertion. Catheter type: PICC Lot number: [id number] Procedure Technique: Skin was prepped with chlorhexidine. [...] insertion site. Final catheter length (with trimming): 40 cm Internal: 40 cm External: 0 cm Tip in SVC per YARI . The line was not placed over a guidewire. Post Procedure: Diagnosis: KIDNEY TRANSPLANT REJECTION Blood return noted on aspiration of line after placement confirmed. 5 mls of normal saline infused free flowing to gravity via PICC after insertion. Sterile dressing applied: Tegaderm and GUARDIVA. Findings: The patient did tolerate the procedure well. No Complications. Procedure Comments: NONE, ORDER FOR RIGHT ARM ONLY. 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 GINNY TORO RN 11/16/2015 documented in this encounter ED Notes * Gail Oh RN - 11/13/2015 12:10 AM EDT Pt resting comfortably. Pt declines wanting the rest of his meal. He ate 25% of his meal. Pt states he has no needs at this time. * Layla Powers LNA - 11/13/2015 12:00 AM EDT Placed pt onto a hospital bed. * Gail Oh RN - 11/12/2015 11:45 PM EDT MD Gray notified about pt having new onset afib. 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 * Kitty Francisco RN - 11/12/2015 11:37 PM EDT Chela Reynolds RN. * Kitty Francisco RN - 11/12/2015 10:50 PM EDT EKG shows pt to be in an a-fib rhythm w/ rvr. Dr Luu notified by text message. * Layla Powers LNA - 11/12/2015 10:48 PM EDT Pt incontinent of urine, Cleaned pt up and changed bedding. * Kitty Francisco RN - 11/12/2015 10:30 PM EDT Pt noted to be in a-fib rhythm. Dr Luu aware and EKG to be performed at bedside. Tylenol order obtained for persistent elevated temp. * Kitty Francisco RN - 11/12/2015 10:10 PM EDT Director Institution questioned by Dr Luu why cellcept and prograf doses had not been administered. Director Institution informed MD that these need to come from the main pharmacy and had been requested to be sent to the ED. * Kitty Francisco RN - 11/12/2015 10:00 PM EDT Pt more clear at present and requesting to be fed. Pt preferred to eat prior to being placed on a hospital bed and condom cath placement. Diet provided w/ pt requesting to sit on edge of bed to eat. Pt assisted to sitting position and diet provided. * Kitty Francisco RN - 11/12/2015 9:40 PM EDT Director Institution spoke w/ pt's via phone who verbalized her frustration that her was still in the ED and that he had phoned her saying he was starving. Director Institution attempted to explain to woman the ED process and how a pt is admitted and the thought of being able to consume a diet w/o possibility of aspiration. Pt's continued to verbalize frustration about the process feeling noone has checked on my since I left. Director Institution attempted to reassure the . * Kitty Francisco RN - 11/12/2015 9:40 PM EDT PIV access to rt a/c dislodged; PIV 22g flushed well and abx reinitiated. * Kitty Francisco RN - 11/12/2015 9:20 PM EDT Director Institution reassessed pt who appeared to questionable for ability to eat meal provided. Pt appeared confused, but was appropriate to commands and questions. Director Institution noted that pt's EKG rhythm to have changes w/ potential a-fib components. Will continue to monitor. * Kitty Francisco RN - 11/12/2015 9:00 PM EDT Admission orders obtained. Pt informed of meal choices. Ama-care provided. * Kitty Francisco RN - 11/12/2015 5:51 PM EDT Pt incontinent of urine. Linen change w/ ama-care; diaper applied per Pt and his 's request. * Kitty Francisco RN - 11/12/2015 5:30 PM EDT Pt's verbalized to junior technical writer and Emily STANLEY about her frustration that her has not been assessed by MD's for admission and that he does not have a hospital room. She stated that when she asked the junior marketing associate about taking the pt the [facility], she was instructed to come to [facility] ED. She was informed that surgery needed to see the pt for assessment for admission, she verbalized her frustrationthat the transplant team was not seeing him and that he was not being admitted sooner. She mentioned wanting to talk to Dr Eagle. This junior technical writer and Emily STANLEY spoke w/ Dr Ferrell about the 's concerns who then agreed to repage surgery and to speak with her about the process. * Kitty Francisco RN - 11/12/2015 3:45 PM EDT IV ABX initiated. * Kitty Francisco RN - 11/12/2015 3:30 PM EDT No s/s distress. * Palomo Johnson - 11/12/2015 2:44 PM EDT Ethel Akins is an 65 y.o. male who presents to the ED with: Chief Complaint Patient presents with ??? Super SIRS Criteria kidney transplant x8 weeks ago I saw this patient 11/12/2015 at 7:25 PM HPI Ethel Akins is a 65 y.o. male with PMH sig for kidney failure s/p renal transplantation currently on Cellcept /tacrolimus / Valcyte who presents to the Emergency Department with fever. Patient reports 2 days of generalized not feeling well and fever. Also complains of urinary incontinence andurgency. Denies dysuria and hematuria. Denies abd pain, n/v/d/c/BRBPR/melena. Denies cough, rash, headache, stiff neck. Review of Systems: Review of Systems Constitutional: Positive for fever, activity change, appetite change and fatigue. Negative for diaphoresis. HENT: Negative for congestion, rhinorrhea and sore throat. Respiratory: Negative for cough, shortness of breath and wheezing. Cardiovascular: Negative for chest pain, palpitations and leg swelling. Gastrointestinal: Negative for nausea, vomiting, abdominal pain, diarrhea and constipation. Genitourinary: Positive for urgency. Negative for dysuria, frequency and decreased urine volume. Musculoskeletal: Negative for back pain. Skin: Negative for color change and rash. Neurological: Negative for dizziness, light-headedness and headaches. Hematological: Does not bruise/bleed easily. Psychiatric/Behavioral: Negative for confusion and agitation. Physical Exam: Patient Vitals for the past 24 hrs: BP Temp Temp src Pulse Resp SpO2 Weight 11/12/15 1745 (!) 175/107 mmHg - - 126 18 94 % - 11/12/15 1730 (!) 169/96 mmHg - - 118 (!) 38 97 % - 11/12/15 1715 177/77 mmHg - - 90 28 90 % - 11/12/15 1700 168/76 mmHg - - 85 (!) 32 95 % - 11/12/15 1645 (!) 176/91 mmHg - - 86 (!) 34 95 % - 11/12/15 1630 (!) 173/96 mmHg - - 84 27 96 % - 11/12/15 1615 171/61 mmHg - - 92 (!) 34 94 % - 11/12/15 1600 190/69 mmHg - - 86 23 96 % - 11/12/15 1530 (!) 171/101 mmHg - - 86 21 92 % - 11/12/15 1500 177/61 mmHg - - 87 (!) 34 93 % - 11/12/15 1430 (!) 108/93 mmHg - - 91 (!) 40 93 % - 11/12/15 1413 158/85 mmHg 39.3 ??C (102.7 ??F) Oral 96 28 91 % 96.616 kg (213 lb) 11/12/15 1354 135/69 mmHg 38.7 ??C (101.7 ??F) Oral 124 20 96 % - Physical Exam Constitutional: He is oriented to person, place, and time. He appears well- developed and well-nourished. He appears distressed. Appears uncomfortable HENT: Head: Normocephalic and atraumatic. Mouth/Throat: Oropharynx is clear and moist. Eyes: Conjunctivae are normal. Pupils are equal, round, and reactive to light. Neck: Normal range of motion. No tracheal deviation present. Cardiovascular: Regular rhythm, normal heart sounds and intact distal pulses. Tachycardic to 110s Pulmonary/Chest: Effort normal and breath sounds normal. No stridor. No respiratory distress. He has no wheezes. Abdominal: Soft. Bowel sounds are normal. He exhibits no distension. There is no tenderness. There is no rebound and no guarding. Surgical incision appears well healed. There is no tenderness over the graft. Neg Rosales's sign. Nopain at McBurny's point. Musculoskeletal: Normal range of motion. He exhibits no edema or tenderness. Neurological: He is alert and oriented to person, place, and time. Skin: Skin is warm and dry. No rash noted. He is not diaphoretic. Psychiatric: He has a normal mood and affect. His behavior is normal. Laboratory Results: CBC with mild leukocytosis, BMP with RAY, UA suggestive of UTI, Blood and urine cultures pending, Lactate mildly elevated Imaging Results: All images have been reviewed by me, and the following interpretations are my own: CXR with NAD ED Course: - Patient was evaluated and discussed with Dr. Colbert - Medications, allergies and past medical history reviewed - 2L NS bolus, Ceftriaxone IV, Cipro IV Assessment and Plan: Assessment: 65 y.o. male with UTI, RAY, and sepsis. Patient is tachycardic and febrile in ED with elevated lactate, currently meeting Sepsis criteria. Patient responded transiently to fluid resuscitation. In setting of recent renal transplant and immunosuppression, urosepsis and RAY is certainly very concerning. Patient was given broad spectrum antibiotics to cover likely bacterial pathogens willurine culture results are pending. Patient was discussed with transplant team for admission and treatment recommendations. Patient will need close monitoring, continued IV abx, continued resuscitation, and monitoring of renal function as inpatient. Patient was comfortable with admission. Patient was admitted to hospital in stable condition. Palomo Johnson MD Resident 11/12/151928 Associated attestation - Paola Colbert MD - 11/14/2015 3:00 PM EDT The patient was seen in conjunction with Dr. Johnson, the resident physician. I have independently performed the carrizales portions of the history and physical exam. I have reviewed all diagnostic studies personally including labs, imaging studies and EKG's. I have discussed the details of the case with the resident and agree with the assessment and plan as described in the resident note above unless noted otherwise below. In summary, 6 w s/p kidney txp with SIRS physiology and concern for UTI. Fluids given, not hypotensive and vitals normalized after fever broke and fluid. Treated with hospital recommended abx, txp wanted us to broaden so Vanc/Zosyn ordered as well. Will admit to txp for further IV abx and monitoring. * Kitty Francisco RN - 11/12/2015 2:[address] Gordillo at bedside to assess pt. documented in this encounter Miscellaneous Notes * Plan of Care - Ginny Toro RN - 11/16/2015 10:00 AM EDT Problem: Health Knowledge, Opportunity for Enhanced (Adult, NICU, [place], Obstetrics, Pediatric) Goal: Knowledgeable about Health Subject/Topic Patient will demonstrate the desired outcomes. Outcome: Outcome (s) achieved Date Met: 11/16/15 Peripherally Inserted Central Catheter (PICC) Teaching Sheet Peripherally inserted central catheters (octh-lt-pnog) (PICC) are used when you need IV [...] midline catheter? PICC lines are used for joint terminal attack controller treatments. PICC lines may be used for [...] can be set up via the nurse Slag Skimmer to help you. What are possible complications [...] Vascular Access Device Selection, Insertion, and Management, [employer] Systems 04/09. A Review of the Efficacy, Safety, Use, and Administration of [employer], [employer] 2005 * Plan of Care - Brenda Masterson RN - 11/16/2015 4:45 AM EDT Problem: General Plan of Care Goal: Plan of Care Review Outcome: Ongoing (Interventions Implemented as Appropriate) 11/14/15 0309 11/15/152199 Coping/Psychosocial Response Interventions Plan of Care Reviewed with -- patient Plan of Care Review Plan of Care Outcome Status ongoing (interventions implemented as appropriate) -- Progress progress toward functional goals as expected -- OUTCOME EVALUATION NOTE: OUTCOME SUMMARY: Yash did well overnight. He was able to sleep in between nursing care. Denies pain. Yash complained of heartburn requiring additional TUMS and well as Protonix. When complaining of heartburn, Yash vomited 600cc with immediate relief. Since the episode of heartburn and emesis, Yash states he is feeling b bryson and the heartburn has subsided. Yash is tolerating PO intake, voiding adequate amounts. No BM overnight. He ambulated two laps around the unit. IV antibiotics continued. Call light within reach,will continue to monitor. PLAN MOVING FORWARD: Encourage ambulation; IV antibiotics; possible discharge home today. INDIVIDUALIZED FALL PREVENTION INTERVENTIONS: Patient-specific fall risk factors per assessment: [current deficits]: Needs assistance getting OOB; IV pole; walker. Assistance [level of assistance required for transfers and ambulation]: 1 assist with walker; Non-skid slippers. Supervision [direct monitoring required during toileting and ADLs]: Eyes on; Hands on. Surveillance [continuous indirect monitoring]: Purposeful hourly monitoring; Telemetry; Bed alarm; Call light within reach. Patient-specific fall prevention interventions for sensory deficits provided, if applicable: Lighting adjusted for task safety; nursing assistance with activity. CPG GOAL OUTCOME EVALUATION: Goal: Individualization and Mutuality Outcome: Ongoing (Interventions Implemented as Appropriate) Goal: Fall Prevention-Safe Patient Handling Outcome: Ongoing (Interventions Implemented as Appropriate) 11/15/152199 Safety Interventions Safety Precautions/Fall Reduction assistive device;bed alarm;commode/urinal/bedpan at bedside;environmental modification;fall reduction program maintained;lighting adjusted for task/safety;low bed;nonskid shoes/slippers when out of bed;room near unit station Musculoskeletal Interventions Activity/Level of Assistance up ad chiquita;with 1-person assist;with walker Positioning HOB up 30-45 degrees Muscle Strengthening up in chair encouraged for meals and activities Self-Care Promotion assistance provided to decrease frustration Stephens Fall Risk History of Falling 0 Secondary Diagnosis 15 Ambulatory Aids 15 Intravenous Therapy/Heparin/Saline Lock 20 Gait/Transferring 10 Mental Status 0 Score 60 Activity and Safety Assistive Device Front wheel walker OTHER Stephens Fall Risk High Goal: Infection Control Outcome: Ongoing (Interventions Implemented as Appropriate) 11/15/15 19411/15/15 220 Coping/Psychosocial Response Interventions Counseling understanding of situation facilitated -- Safety Interventions Isolation Precautions -- standard precautions maintained Infection Prevention -- blood glucose management;bronchial hygiene promoted;environmental surveillance;hydration promoted;nutrition promoted;promote handwashing;rest/sleep promoted Goal: Discharge Needs Assessment Outcome: Ongoing (Interventions Implemented as Appropriate) 11/14/15 0309 Discharge Needs Assessment Concerns to be Addressed no discharge needs identified Readmission Within the Last 30 Days no previous admission in last 30 days Current Health Anticipated Changes Related to Illness none Self-Care Equipment Currently Used at Home none Living Environment Transportation Available family or friend will provide Problem: Kidney Transplant Recipient (Adult) Goal: Signs and symptoms of listed potential problems will be absent or manageable (reference (Kidney Transplant Recipient (Adult)) CPG) Outcome: Ongoing (Interventions Implemented as Appropriate) 11/14/15 0309 Kidney Transplant Recipient Problems Assessed (Kidney Transplant) fluid and electrolyte imbalance;infection Problems Present (Kidney Transplant) fluid and electrolyte imbalance;infection * Plan of Care - Keyana Hedrick RN - 11/15/2015 7:48 PM EDT Problem: General Plan of Care Goal: Plan of Care Review Outcome: Ongoing (Interventions Implemented as Appropriate) 11/14/15 0309 11/15/15 0930 Coping/Psychosocial Response Interventions Plan of Care Reviewed with -- patient Plan of Care Review Plan of Care Outcome Status ongoing (interventions implemented as appropriate) -- Progress progress toward functional goals as expected -- OUTCOME EVALUATION NOTE: OUTCOME SUMMARY: Pt stable today. VSS. Alert and oriented; able to get up with stand by assist, ambulate, and make his needs known. No pain reported. Appetite good for food and fluid. Continues on every four hour ampicillin. Due for PICC placement in the morning. PLAN MOVING FORWARD: Continue supportive care, maintain safety, medications as ordered, monitor intake and output, encourage and assist with ambulation needs . INDIVIDUALIZED FALL PREVENTION INTERVENTIONS: Patient-specific fall risk factors per assessment: [current deficits]: Patient needs assistance getting out of bed because of intermittent IV therapy. Pt can be impulsive and not call for nursing assistance. Assistance [level of assistance required for transfers and ambulation]: Walker for additional support. Supervision [direct monitoring required during toileting and ADLs]: Eyes on when out of bed. Surveillance [continuous indirect monitoring]: Purposeful rounding, call robles in reach, bed/chair alarm. Patient-specific fall prevention interventions for sensory deficits provided, if applicable: Glasses on. CPG GOAL OUTCOME EVALUATION: Goal: Fall Prevention-Safe Patient Handling Outcome: Ongoing (Interventions Implemented as Appropriate) 11/14/15219911/15/15929 Safety Interventions Safety Precautions/Fall Reduction -- bed alarm;commode/urinal/bedpan at bedside;environmental modification;fall reduction program maintained Musculoskeletal Interventions Activity/Level of Assistance -- up ad chiquita;with stand by assist Positioning HOB up 30-45 degrees -- Muscle Strengthening -- up in chair encouraged for meals and activities Self-Care Promotion assistance provided to decrease frustration -- Stephens Fall Risk History of Falling -- 0 Secondary Diagnosis -- 15 Ambulatory Aids -- 15 Intravenous Therapy/Heparin/Saline Lock -- 20 Gait/Transferring -- 10 Mental Status -- 0 Score -- 60 Activity and Safety Assistive Device -- Front wheel walker OTHER Stephens Fall Risk -- High Goal: Infection Control Outcome: Ongoing (Interventions Implemented as Appropriate) 11/15/1592911/15/15 194 Coping/Psychosocial Response Interventions Counseling -- understanding of situation facilitated Safety Interventions Isolation Precautions -- standard precautions maintained Infection Prevention blood glucose management -- * Plan of Care - Brenda Masterson RN - 11/15/2015 3:53 AM EDT Problem: General Plan of Care Goal: Plan of Care Review Outcome: Ongoing (Interventions Implemented as Appropriate) 11/14/15 0309 11/14/152199 Coping/Psychosocial Response Interventions Plan of Care Reviewed with -- patient Plan of Care Review Plan of Care Outcome Status ongoing (interventions implemented as appropriate) -- Progress progress toward functional goals as expected -- OUTCOME EVALUATION NOTE: OUTCOME SUMMARY: Yash did well overnight. He was able to sleep in between nursing care. Denies pain. VSS overnight, no fevers. IV Antibiotics and MIVF continued. He is voiding adequate amounts, urgency has improved. PO intake needs improvement, fluids promoted. No n/v at thus time. No BM. No events on Tele thus far.Call light within reach, will continue to monitor. PLAN MOVING FORWARD: IV Antibiotics; MIVF; Encourage PO intake; I&O. INDIVIDUALIZED FALL PREVENTION INTERVENTIONS: Patient-specific fall risk factors per assessment: [current deficits]: Needs assistance getting OOB; IV pole; Walker; Impulsive. Assistance [level of assistance required for transfers and ambulation]: 1 assist with walker; non-skid slippers. Supervision [direct monitoring required during toileting and ADLs]: Eyes on; Hands on. Surveillance [continuous indirect monitoring]: Purposeful hourly rounding; Telemetry; Bed alarm; Call light within reach. Patient-specific fall prevention interventions for sensory deficits provided, if applicable: Lighting adjusted for safety; Nursing assistance with activity. CPG GOAL OUTCOME EVALUATION: Goal: Individualization and Mutuality Outcome: Ongoing (Interventions Implemented as Appropriate) Goal: Fall Prevention-Safe Patient Handling Outcome: Ongoing (Interventions Implemented as Appropriate) 11/14/15 0900 11/14/152199 Safety Interventions Safety Precautions/Fall Reduction -- bed alarm;commode/urinal/bedpan at bedside;environmental modification;fall reduction program maintained;lighting adjusted for task/safety;low bed;nonskid shoes/slippers when out of bed;room near unit station Musculoskeletal Interventions Activity/Level of Assistance -- up ad chiquita;with 1-person assist Positioning -- HOB up 30-45 degrees Muscle Strengthening up in chair encouraged for meals and activities -- Self-Care Promotion -- assistance provided to decrease frustration Stephens Fall Risk History of Falling -- 0 Secondary Diagnosis -- 15 Ambulatory Aids -- 15 Intravenous Therapy/Heparin/Saline Lock -- 20 Gait/Transferring -- 10 Mental Status -- 15 Score -- 75 Activity and Safety Assistive Device -- Front wheel walker OTHER Stephens Fall Risk -- High Goal: Infection Control Outcome: Ongoing (Interventions Implemented as Appropriate) 05/11/16 2200 Coping/Psychosocial Response Interventions Counseling reassurance provided Safety Interventions Isolation Precautions other (see comments) (Immunosuppression) Infection Prevention blood glucose management;bronchial hygiene promoted;environmental surveillance;hydration promoted;nutrition promoted;promote handwashing;rest/sleep promoted Goal: Discharge Needs Assessment Outcome: Ongoing (Interventions Implemented as Appropriate) 11/14/15308 Discharge Needs Assessment Concerns to be Addressed no discharge needs identified Readmission Within the Last 30 Days no previous admission in last 30 days Current Health Anticipated Changes Related to Illness none Self-Care Equipment Currently Used at Home none Living Environment Transportation Available family or friend will provide Problem: Kidney Transplant Recipient (Adult) Goal: Signs and symptoms of listed potential problems will be absent or manageable (reference (Kidney Transplant Recipient (Adult)) CPG) Outcome: Ongoing (Interventions Implemented as Appropriate) 11/14/15308 Kidney Transplant Recipient Problems Assessed (Kidney Transplant) fluid and electrolyte imbalance;infection Problems Present (Kidney Transplant) fluid and electrolyte imbalance;infection * Care Management - Merle Alva MD - 11/14/2015 5:13 PM EDT Patient will receive IV antibiotics at infusion suite at [facility]. Infectious Disease will need to fax the prescription for IV antibiotics to [phone]. * Plan of Care - Ethel Benitez RN - 11/14/2015 4:39 PM EDT Problem: General Plan of Care Goal: Plan of Care Review Outcome: Ongoing (Interventions Implemented as Appropriate) 11/14/1530811/14/15 09 Coping/Psychosocial Response Interventions Plan of Care Reviewed with -- patient Plan of Care Review Plan of Care Outcome Status ongoing (interventions implemented as appropriate) -- Progress progress toward functional goals as expected -- OUTCOME EVALUATION NOTE: OUTCOME SUMMARY: Pt greeted and identified. He is pleasant cooperative. Oriented X 4. Denies c/o pain. Please see EDH for assessments. OOB to chair w/ 1 assist today X 2. Feels tired. IV antibx's as ordered. Has loose stools X 2. Voids in urinal clear yel urine w/ urgency. Akbar diet in 50% portions. PLAN MOVING FORWARD: Cont To monitor I&O's. Cont antibx's, cont to support. INDIVIDUALIZED FALL PREVENTION INTERVENTIONS: Patient-specific fall risk factors per assessment: [current deficits]: 1 assist Assistance [level of assistance required for transfers and ambulation]: Use of walker w/ 1 assist Supervision [direct monitoring required during toileting and ADLs]: Within reach when on feet Surveillance [continuous indirect monitoring]: Hourly rounding, skin, masimo, telemetry, call robles with in reach, urinal within reach Patient-specific fall prevention interventions for sensory deficits provided, if applicable: Yes Glasses at bedside CPG GOAL OUTCOME EVALUATION: Goal: Fall Prevention-Safe Patient Handling Outcome: Ongoing (Interventions Implemented as Appropriate) 11/14/15 0911/14/15 1000 Safety Interventions Safety Precautions/Fall Reduction -- bed alarm Musculoskeletal Interventions Activity/Level of Assistance -- up in room;ambulated;with 1-person assist Positioning up in chair -- Muscle Strengthening up in chair encouraged for meals and activities -- Self-Care Promotion assistance provided to decrease frustration;independence encouraged while providing assistance -- Stephens Fall Risk History of Falling 0 -- Secondary Diagnosis 15 -- Ambulatory Aids 15 -- Intravenous Therapy/Heparin/Saline Lock 20 -- Gait/Transferring 10 -- Mental Status 15 -- Score 75 -- Activity and Safety Assistive Device -- Front wheel walker OTHER Stephens Fall Risk High -- Goal: Infection Control Outcome: Ongoing (Interventions Implemented as Appropriate) 11/14/15 0900 Coping/Psychosocial Response Interventions Counseling reassurance provided Safety Interventions Isolation Precautions other (see comments) (immunosuppressed) Infection Prevention blood glucose management;environmental surveillance;hydration promoted;promotehandwashing;nutrition promoted;rest/sleep promoted Problem: Kidney Transplant Recipient (Adult) Goal: Signs and symptoms of listed potential problems will be absent or manageable (reference (Kidney Transplant Recipient (Adult)) CPG) Outcome: Ongoing (Interventions Implemented as Appropriate) 11/14/15 0309 Kidney Transplant Recipient Problems Assessed (Kidney Transplant) fluid and electrolyte imbalance;infection Problems Present (Kidney Transplant) fluid and electrolyte imbalance;infection * Plan of Care - Malina Edmonds RN - 11/14/2015 3:12 AM EDT Problem: General Plan of Care Goal: Plan of Care Review Outcome: Ongoing (Interventions Implemented as Appropriate) 11/14/15 0309 Coping/Psychosocial Response Interventions Plan of Care Reviewed with patient Plan of Care Review Plan of Care Outcome Status ongoing (interventions implemented as appropriate) Progress progress toward functional goals as expected OUTCOME EVALUATION NOTE: OUTCOME SUMMARY: Yash slept in between care overnight. Tylenol given for mild back pain. Voiding in urinal at the bedside. Temperatures 39.1, 38.1, 39.1. PIV dressing changed. Pt turning self in bed frequently. PLAN MOVING FORWARD: Continue IV abx; monitor temp; monitor urine output INDIVIDUALIZED FALL PREVENTION INTERVENTIONS: Patient-specific fall risk factors per assessment: [current deficits]: Unsteady gait Assistance [level of assistance required for transfers and ambulation]: x1 staff with FWW Supervision [direct monitoring required during toileting and ADLs]: Eyes on Surveillance [continuous indirect monitoring]: Bed alarm, purposeful rounding, call robles in reach Patient-specific fall prevention interventions for sensory deficits provided, if applicable: Lighting provided/adjusted CPG GOAL OUTCOME EVALUATION: Goal: Individualization and Mutuality Outcome: Ongoing (Interventions Implemented as Appropriate) Goal: Fall Prevention-Safe Patient Handling Outcome: Ongoing (Interventions Implemented as Appropriate) 11/13/15 2100 11/14/15 030 Safety Interventions Safety Precautions/Fall Reduction commode/urinal/bedpan at bedside;environmental modification;fall reduction program maintained;lighting adjusted for task/safety;low bed;nonskid shoes/slippers when out of bed;bed alarm -- Musculoskeletal Interventions Activity/Level of Assistance up ad chiquita;up in room;ambulated;with walker;with 1- person assist -- Positioning independent -- Muscle Strengthening -- activity/mobility promoted;mobility in bed promoted;personal routines for BADL/IADL promoted Self-Care Promotion -- personal routines for BADL/IADL promoted;personal/BADL objects within reach;toileting assistance provided;independence encouraged while providing assistance Stephens Fall Risk History of Falling 0 -- Secondary Diagnosis 15 -- Ambulatory Aids 15 -- Intravenous Therapy/Heparin/Saline Lock 20 -- Gait/Transferring 10 -- Mental Status 15 -- Score 75 -- Activity and Safety Assistive Device Front wheel walker -- OTHER Stephens Fall Risk High -- Goal: Infection Control Outcome: Ongoing (Interventions Implemented as Appropriate) 11/13/15 2100 Coping/Psychosocial Response Interventions Counseling emotional support provided;reassurance provided Safety Interventions Isolation Precautions standard precautions maintained Infection Prevention blood glucose management;bronchial hygiene promoted;environmental surveillance;hydration promoted;nutrition promoted;promote handwashing;rest/sleep promoted Goal: Discharge Needs Assessment Outcome: Ongoing (Interventions Implemented as Appropriate) 11/14/15 0309 Discharge Needs Assessment Concerns to be Addressed no discharge needs identified Readmission Within the Last 30 Days no previous admission in last 30 days Current Health Anticipated Changes Related to Illness none Self-Care Equipment Currently Used at Home none Living Environment Transportation Available family or friend will provide Problem: Kidney Transplant Recipient (Adult) Goal: Signs and symptoms of listed potential problems will be absent or manageable (reference (Kidney Transplant Recipient (Adult)) CPG) Outcome: Ongoing (Interventions Implemented as Appropriate) 11/14/15 0309 Kidney Transplant Recipient Problems Assessed (Kidney Transplant) fluid and electrolyte imbalance;infection Problems Present (Kidney Transplant) fluid and electrolyte imbalance;infection TELE note: S: No c/o chest pain, sob, or n/v O: Please see tele strips in chart A: Frequent PACs, PJCs, rare aberrant beat, non sustaining tachycardia; pt's rhythm is irregular-tolerating P: Continue pt on tele monitoring * Plan of Care - Angela Rendon RN - 11/13/2015 6:46 PM EDT Problem: General Plan of Care Goal: Plan of Care Review 11/13/15 0612 11/13/15 0800 11/13/15 1832 Coping/Psychosocial Response Interventions Plan of Care Reviewed with -- patient -- Plan of Care Review Plan of Care Outcome Status ongoing (interventions implemented as appropriate) -- -- Progress -- -- no change OUTCOME EVALUATION NOTE: OUTCOME SUMMARY: Yash has been having shaking chills most of shift. Tmax 38.3. Per telemetry patient has also been having frequent runs of SVT with an irregular rhythm. MD Boothe made aware. Potassium, phosphate, and magnesium replacements ordered. Per radio television technical director frequency of SVT runs has decreased since this. Blood cultures drawn this afternoon. Pt also having to void frequenty. PVRs done today. Highest was 147 mL. Patient had two loose bowel movements. Incontinent once during shift. Patient has been alert and oriented but seems unfocused and impulsive at times. Bed alarm on. PLAN MOVING FORWARD: Continue to monitor vital signs and intake and output. Encourage PO intake and ambulation. Serial blood cultures ordered to start tomorrow AM. Continue to monitor on telemetry. Started on ampicillin this evening. Continue to check PVRs and straight cath for greater than 300 mL. CBC and BMP ordered to be drawn tomorrow. INDIVIDUALIZED FALL PREVENTION INTERVENTIONS: Patient-specific fall risk factors per assessment: [current deficits]: Impulsive, needs assistance getting out of bed Assistance [level of assistance required for transfers and ambulation]: Walker, non-skid socks, 1-2assist Supervision [direct monitoring required during toileting and ADLs]: Hands on Surveillance [continuous indirect monitoring]: Purposeful rounding, call robles in reach, bed/chair alarm Patient-specific fall prevention interventions for sensory deficits provided, if applicable: Yes, Light adjusted for task/safety CPG GOAL OUTCOME EVALUATION: Goal: Fall Prevention-Safe Patient Handling 11/13/15 0800 11/13/15 1800 Safety Interventions Safety Precautions/Fall Reduction -- bed alarm Stephens Fall Risk History of Falling 0 -- Secondary Diagnosis 15 -- Ambulatory Aids 0 -- Intravenous Therapy/Heparin/Saline Lock 20 -- Gait/Transferring 20 -- Mental Status 15 -- Score 70 -- Activity and Safety Assistive Device Front wheel walker -- OTHER Stephens Fall Risk High -- Musculoskeletal Interventions Activity/Level of Assistance up in room;with 1-person assist;with walker -- Positioning independent -- Goal: Infection Control 11/13/15 0800 11/13/15 1832 Coping/Psychosocial Response Interventions Counseling emotional support provided -- Safety Interventions Isolation Precautions -- standard precautions maintained Infection Prevention environmental surveillance;rest/sleep promoted;promote handwashing -- * Consult Note - Ramez Serrano DO - 11/13/2015 9:12 AM EDT INFECTIOUS DISEASE INITIAL CONSULT NOTE Reason for Consult: Enterococcus bacteremia Renal transplant Consulting Service: Transplant Consulting Attending: Tal Eagle MD Admission Date: 11/12/2015 History of Present Illness: 65 y.o. male with history of HCV, h/o stroke, CKD secondary to HTN s/p donor renal transplant on 09/2015 who presents with fever, now found to have Enterococcus bacteremia. We have been consulted to assistance with bacteremia. Mr. Akins underwent a renal transplant on 09/16/2015, which went well. However, it was found thathis donor had Group C Strep bacteremia prior to organ procurement. Given that, he received a week of ceftriaxone after his transplant. His post-transplant follow up went well and his stent was removed on 10/25. A urine culture was obtained on 11/07 that showed 10-49k Enterococcus species. He then started to feel ill at home about 2 days ago with fatigue, generalized weakness, and shaking chills. This was associated with urinary urgency and frequency but no dysuria or hematuria. His checked his temperature at home and measured it to 100.9. He then presented to the ED on 11/11, where he was febr ile to 39.3 and tachycardic. Blood and urine cultures were drawn and he was started on vancomycin and pip-tazo. His blood cultures are now growing Enterococcus. Review of Systems: Constitutional: Fevers, chills, fatigue as above HEENT: Denies headache, sore throat, nasal congestion Cardiovascular: Denies chest pain, pressure or palp Respiratory: Denies SOB, cough GI: Denies dysphagia, abdominal pain, N/V/D/C : As above Musculoskeletal: Denies myalgias or arthralgias Skin: No skin complaints, rash Neurological: No focal weakness, numbness or tingling Allergies: No Known Allergies Pertinent Medications: Pip-tazo (11/11- ) Vancomycin (11/12- ) Ceftriaxone (11/11) Ciprofloxacin (11/11) TMP/SMX 1 SS daily Valganciclovir 450mg daily Mycophenolate 500mg BID Tacrolimus 3/2mg Past Medical and Surgical History: Past Medical History Diagnosis Date ??? Type 2 diabetes mellitus ??? HTN (hypertension) ??? ESRD (end stage renal disease) ??? Microhematuria ??? Colon polyp ??? GERD (gastroesophageal reflux disease) ??? Back pain ??? CVA (cerebral vascular accident) Per report but no deficits Past Surgical History Procedure Laterality Date ??? Pro anastomosis, av, any site Left 05/09/2015 AV FISTULA CREATION, DIRECT HEMODIALYSIS, ANY SITE, EG ASHWINI FISTULA UPPER EXTREMITY performed by Que Amaro MD at [facility] MAIN OR ??? Pro transplantation of kidney N/A 09/16/2015 @KIDNEY TRANSPLANT, WITHOUT RECIPIENT NEPHRECTOMY performed by Franko Larkin MD at [facility] MAIN OR ??? Pro transplant, prep cadaver renal graft N/A 09/16/2015 @PREPARATION CADAVERIC RENAL ALLOGRAFT performed by Franko Larkin MD at [facility] MAIN OR ??? N/A 09/16/2015 ORGAN ACQUISITION RENAL, CADAVERIC performed by Franko Larkin MD at [facility] MAIN OR Social History and Habits: - Lives with his and son Physical Exam: Last value Range last 24 hrs Temperature Temp: 36.8 ??C (98.2 ??F) Temp: [36.8 ??C (98.2 ??F)-39.3 ??C (102.7 ??F)] Heart Rate Heart Rate: 70 Heart Rate: [70-126] Blood Pressure BP: 109/82 mmHg BP: (108-190)/(50-107) Respiratory Rate Resp: 22 Resp: [18-43] SpO2 SpO2: 96 % SpO2: [90 %-97 %] I/O last 3 completed shifts: In: 987 [I.V.:987] Out: 1165 [Urine:1125; Emesis/NG output:40] Patient Vitals for the past 168 hrs: Weight 11/12/15 1413 96.616 kg (213 lb) General: Fatigued appearing male, laying in bed, NAD HEENT: NC/AT, no conjunctival hemorrhages. Oropharynx clear with no lesions, MM moist, neck supple Cardiovascular: Normal S1 and S2, no m/r/g Respiratory: CTA anteriorly Abd: Normoactive BS, soft, surgical incision healing well with no erythema, L sided renal transplant mildly TTP Extrem: No LE edema Neuro: A&Ox3, no focal deficits Skin: Warm and dry without splinter hemorrhages or other stigmata of endocarditis Laboratory: Recent Labs 11/13/15 0730 11/12/15 1425 11/08/15 0849 WBC 9.6 10.1* 8.0 HGB 13.0* 14.5 14.0 HCT 36.3* 41.3 41.1 PLATELET 214 268 279 Recent Labs 11/12/15 1425 11/08/15 0849 NA 137 141 K 4.0 4.4 CL 99 104 CO2 20* 23 BUN 20 23* CREATININE 2.02* 1.89* Recent Labs 11/08/15 0849 AST 22 ALT 25 ALKPHOS 83 BILITOT 0.7 BILIDIR <0.1 Recent Labs 11/12/15 1425 11/08/15 0849 CALCIUM 9.3 9.1 PHOS -- 2.7 Component Value Date/Time SPGRAVITYUA 1.014 11/12/2015 1427 PHUADIP 5.0 11/12/2015 1427 PROTEINUADIP Negative 11/12/2015 1427 GLUCOSEU 50* 11/12/2015 1427 KETONESUA Negative 11/12/2015 1427 UROBILIUADIP Normal 11/12/2015 1427 BLOODUADIP Moderate* 11/12/2015 1427 NITRATEUA Negative 11/12/2015 1427 LEUKOESTERUA Small* 11/12/2015 1427 WBCUA 20* 11/12/2015 1427 BILIRUBINUA Negative 11/12/2015 1427 Microbiology: 11/11: Blood--Enterococcus by PCR 11/07: Urine--10-49k Enterococcus species, S to amp, cipro, dapto, levofloxacin, nitrofurantoin, PCN,vanc Radiology/Studies/Procedures: 11/11: CXR--No acute cardiopulmonary process. Tiny right pleural effusion Assessment: Ethel Akins is a 65 y.o. male with history of HCV, h/o stroke, CKD secondary to HTN s/p donor renal transplant on 09/2015 who presents with fever, now found to have Enterococcus bacteremia. Based on the recent urine culture also growing Enterococcus, this likely originated as a urinary infection. Given the sensitivities of that Enterococcus, we can treat him with ampicillin. He should receive a renal ultrasound to ensure that there is no abscess or other collection leading to his systemic infection. Recommendations: - Stop pip-tazo, vancomycin - Start ampicillin 2g IV q6hr - Repeat blood cultures - Renal transplant ultrasound X Recommendations discussed with the primary treating team. ID consult service will continue to follow patient. Page us at [phone] with any further questions or concerns. Recommendations are above and were discussed with the primary treating team. ID will sign off. Please page if further consultation required. This patient was seen and discussed with ID attending Dr. Sarai BECK MD Fellow, Infectious Disease 11/13/2015 Pager [phone] I have seen the patient and reviewed the above history and physical and I agree with the details aswritten. The assessment and plan were formulated in discussion with me and I agree with them as documented. Enterococcal bacteremia likely secondary to transplant pyelonephritis given urinary symptoms and tenderness over kidney. Recommend renal ultrasound and repeat blood cultures until clear. Recommend changing antibiotics to Ampicillin given recent Enterococcal sensitivities on 11/07. Continue to monitorrenal function and adjust dosing as needed. Ramez Serrano DO, MPH Infectious Disease * Plan of Care - Keyana Hedrick RN - 11/13/2015 6:36 AM EDT Problem: General Plan of Care Goal: Plan of Care Review OUTCOME EVALUATION NOTE: OUTCOME SUMMARY: Patient to [facility] from ED at 0030 on 11/13/15. Had been in ED since 1400 11/12/15. VSS. Patient was calm, alert and oriented, and appropriate. New IV sited in right arm; switched Vancomycin 2 gram infusion to new site. Right wrist IV remains patent for other medications as needed. Patient voided at regular intervals throughout the night (see doc flowsheets). Blood glucose check at 0400 162, covered with 2 units novolog. 0400 am second dose of Zozyn started. Maintenance IV NS at 75continues. Patient had intermittent episodes of shaking chills. T Max 38.4 at 0600; pt given tylenol 650 mg for comfort. Pt also had small episode of emesis 50 ml at 0625. TELEMETRY: Report overnight(hard copy in chart) showed rare non sustained burst of afib; frequent PACs and PJC, junctional beats with P wave changes. Pt denies chest pain/pressure, shortness of breath, lightheadedness. PLAN MOVING FORWARD: Continue supportive care as ordered and according to nursing policy and practice. INDIVIDUALIZED FALL PREVENTION INTERVENTIONS: Patient-specific fall risk factors per assessment: [current deficits]: Intravenous fluid, also, pt appears unsteady. Assistance [level of assistance required for transfers and ambulation]: 2 person if ambulating, oneperson to commode. Supervision [direct monitoring required during toileting and ADLs]: Hands on. Surveillance [continuous indirect monitoring]: Call robles, hourly monitoring. Patient-specific fall prevention interventions for sensory deficits provided, if applicable: Patient does not appear to realize he has deficits, call robles on bed and chair at all times. CPG GOAL OUTCOME EVALUATION: * Consult Note - Yeimi Vasquez [facility] [place] - 11/12/2015 8:05 PM EDT Clinical Pharmacist Note-Vancomycin Ethel Akins [id number] Ethel Akins is a 65 y.o. male is being monitored due to antibiotic therapy which includes intravenous vancomycin. Regimen: Vancomycin 1500 mg every 24 hours Indication: empiric coverage of sepsis Initiation Date: 11/12/15 Day of Therapy: 1 Targeted Goal Range: 15 - 20 mcg/mL Pharmacokinetic information: Wt Readings from Last 1 Encounters: 11/12/15 96.616 kg (213 lb) Ht Readings from Last 1 Encounters: 11/08/15 177.8 cm (5' 10) Labs: Vancomycin: No results found for requested labs within last 30 days. Creatinine clearance: 10/26/2015: Creatinine 1.49 mg/dL (Ref range: 0.80 - 1.50 mg/dL) 11/08/2015: Creatinine 1.89 mg/dL* (High; Ref range: 0.80 - 1.50 mg/dL) 11/12/2015: Creatinine 2.02 mg/dL* (High; Ref range: 0.80 - 1.50 mg/dL) Recommendations: Dosing recommendations: ?? Based on this information a one time dose of 2000 mg will be given now and followed by a dose [id number] mg every 24 hours, to start at 2000 (time) on 11/13/2015 should achieve an estimated trough level of 15 - 20 mcg/mL. Monitoring recommendations: ?? A new steady state level should be achieved after 4 half-lives. I suggest rechecking a vancomycin trough level (30 minutes prior to a scheduled dose) prior to the fourth dose. ?? This patient currently has unstable renal function and will need to be monitored closely, pleasefollow renal function trends. We will continue to monitor the patient as long as he remains on vancomycin therapy. Please watch SCr, BUN and fluid status closely. Please page the care area pharmacist with any questions you may have. Alternately, during off-hours you may call [phone] to contact a pharmacist. YEIMI VASQUEZ RPH * ED Triage - Kameron English RN - 11/12/2015 1:57 PM EDT Pt presents to the ED with concerns of weakness and feeling off. Per pt and , notes feeling dizzy on Thursday. Pt ambulates into ED triage with unsteady gait, assisted with ambulation. Endorsespoor appetite, fevers, and fatigue all weekend. Kidney transplant x8 weeks ago. Endorses new urinary incontinence. A&O x3. Tachycardic, febrile. documented in this encounter Plan of Treatment Upcoming Encounters Date Type Department Care Team (Late st Contact Info) Description 04/15/2024 10:00 AM EDT Hospital Encounter Non-Invasive [place] [address] Arrived Scheduled Referrals Name Type Priority Associated Diagnoses Orde r Schedule OPAT: Order / Recommendation for Post Discharge IV Antibiotic Management Outpatient Referral Routine Bacteremia due to Enterococcus Ordered: 11/16/2015 documented as of this encounter Procedures Procedure Name Priority Date/Time Associated Diagnosis Comments APPLICATIONS SUPPORT SPECIALIST SCAN 11/17/2015 12:00 AM EDT POCT GLUCOSE Routine 11/16/2015 4:23 PM EDT POCT GLUCOSE Routine 11/16/2015 11:[address] PICC LINE: CONTACT VASCULAR ACCESS Routine 11/16/2015 9:43 AM EDT XR PICC PLACEMENT OVER 5 YEARS (IV TEAM) Routine 11/16/2015 9:29 AM EDT POCT GLUCOSE Routine 11/16/2015 7:18 AM EDT HEMOGRAM Routine 11/16/2015 5:25 AM EDT DIFFERENTIAL, AUTOMATED Routine 11/16/2015 5:25 AM EDT BLOOD CULTURE Routine 11/16/2015 5:25 AM EDT CBC (WITH DIFF) Routine 11/16/2015 5:25 AM EDT PHOSPHORUS Routine 11/16/2015 5:25 AM EDT MAGNESIUM Routine 11/16/2015 5:25 AM EDT BASIC METABOLIC PANEL Routine 11/16/2015 5:25 AM EDT POCT GLUCOSE Routine 11/16/2015 4:15 AM EDT POCT GLUCOSE Routine 11/15/2015 11:46 PM EDT POCT GLUCOSE Routine 11/15/2015 7:19 PM EDT POCT GLUCOSE Routine 11/15/2015 4:41 PM EDT POCT GLUCOSE Routine 11/15/2015 12:00 PM EDT POCT GLUCOSE Routine 11/15/2015 7:21 AM EDT HEMOGRAM Routine 11/15/2015 6:14 AM EDT DIFFERENTIAL, AUTOMATED Routine 11/15/2015 6:14 AM EDT BLOOD CULTURE Routine 11/15/2015 6:14 AM EDT CBC (WITH DIFF) Routine 11/15/2015 6:14 AM EDT PHOSPHORUS Routine 11/15/2015 6:14 AM EDT MAGNESIUM Routine 11/15/2015 6:14 AM EDT BASIC METABOLIC PANEL Routine 11/15/2015 6:14 AM EDT POCT GLUCOSE Routine 11/15/2015 4:29 AM EDT POCT GLUCOSE Routine 11/15/2015 12:21 AM EDT POCT GLUCOSE Routine 11/14/2015 7:12 PM EDT EKG 12-LEAD STAT 11/14/2015 5:24 PM EDT Irregular heart rate POCT GLUCOSE Routine 11/14/2015 3:55 PM EDT US RENAL TRANSPLANT LEFT Routine 11/14/2015 1:51 PM EDT POCT GLUCOSE Routine 11/14/2015 11:58 AM EDT TACROLIMUS LEVEL Routine 11/14/2015 9:42 AM EDT POCT GLUCOSE Routine 11/14/2015 7:26 AM EDT HEMOGRAM Routine 11/14/2015 5:18 AM EDT DIFFERENTIAL, AUTOMATED Routine 11/14/2015 5:18 AM EDT BLOOD CULTURE Routine 11/14/2015 5:18 AM EDT CBC (WITH DIFF) Routine 11/14/2015 5:18 AM EDT PHOSPHORUS Routine 11/14/2015 5:18 AM EDT MAGNESIUM Routine 11/14/2015 5:18 AM EDT BASIC METABOLIC PANEL Routine 11/14/2015 5:18 AM EDT POCT GLUCOSE Routine 11/14/2015 4:25 AM EDT POCT GLUCOSE Routine 11/14/2015 12:12 AM EDT POCT GLUCOSE Routine 11/13/2015 8:13 PM EDT POCT GLUCOSE Routine 11/13/2015 7:02 PM EDT BLOOD CULTURE STAT 11/13/2015 4:43 PM EDT CARDIAC ENZYMES ([facility]) STAT 11/13/2015 4:30 PM EDT BLOOD CULTURE STAT 11/13/2015 4:30 PM EDT POCT GLUCOSE Routine 11/13/2015 4:27 PM EDT POCT GLUCOSE Routine 11/13/2015 11:29 AM EDT POCT GLUCOSE Routine 11/13/2015 8:12 AM EDT HEMOGRAM STAT 11/13/2015 7:30 AM EDT DIFFERENTIAL, AUTOMATED STAT 11/13/2015 7:30 AM EDT CARDIAC ENZYMES ([facility]) STAT 11/13/2015 7:30 AM EDT TACROLIMUS LEVEL Timed 11/13/2015 7:30 AM EDT CBC (WITH DIFF) STAT 11/13/2015 7:30 AM EDT PHOSPHORUS STAT 11/13/2015 7:30 AM EDT MAGNESIUM STAT 11/13/2015 7:30 AM EDT BASIC METABOLIC PANEL STAT 11/13/2015 7:30 AM EDT POCT GLUCOSE Routine 11/13/2015 3:47 AM EDT CARDIAC ENZYMES ([facility]) STAT 11/13/2015 12:10 AM EDT EKG 12-LEAD STAT 11/12/2015 10:35 PM EDT Kidney transplant infection XR CHEST PA AND LATERAL STAT 11/12/2015 3:16 PM EDT L-LACTATE2 WHOLE BLOOD Routine 11/12/2015 2:30 PM EDT URINALYSIS WITH REFLEX CULTURE STAT 11/12/2015 2:27 PM EDT URINE CULTURE STAT 11/12/2015 2:27 PM EDT BMP W/FASTING GLUCOSE STAT 11/12/2015 2:25 PM EDT HEMOGRAM STAT 11/12/2015 2:25 PM EDT DIFFERENTIAL, AUTOMATED STAT 11/12/2015 2:25 PM EDT BLUE TUBE HOLD STAT 11/12/2015 2:25 PM EDT BLOOD CULTURE STAT 11/12/2015 2:25 PM EDT BLOOD CULTURE STAT 11/12/2015 2:25 PM EDT CBC (WITH DIFF) STAT 11/12/2015 2:25 PM EDT documented in this encounter Results * SCAN DOC: APPLICATIONS SUPPORT SPECIALIST (11/17/2015 12:00 AM EDT) Anatomical Region Laterality Modality Other Scanning Provider MEDIA MGR SCAN EXT O RDR/RSLT * (ABNORMAL) POCT Glucose (11/16/2015 4:23 PM EDT) [facility] Glucose, POC 206(H) 65 - 199 mg/dL [facility] Comment: Supplemental ranges: <140 mg/dL before meals <180 mg/dL all other times of the day Blood specimen (specimen) 11/16/2015 4:23 PM EDT 11/16/2015 4:23 PM EDT Tal Eagle MD POINT OF CARE BOBY T ORDERABLES Performing Organization Address City/[facility] Co de Phone Number [facility] [place] [address] * POCT Glucose (11/16/2015 11:28 AM EDT) Glucose, POC 199 65 - 199 mg/dL [facility] Comment: Supplemental ranges: <140 mg/dL before meals <180 mg/dL all other times of the day Blood specimen (specimen) 11/16/2015 11:28 AM EDT 11/16/2015 11:28 AM EDT Tal Eagle MD POINT OF CARE BOBY T ORDERABLES Performing Organization Address City/[facility] Co de Phone Number [facility] [place] [address] * Place PICC Line: Contact Vascular Access Page [phone] Extremity to exclude: DO NOT use LEFT Arm; Is PICC procedure required PRIOR to patients discharge?: Yes (11/16/2015 9:43 AM EDT) Narrative Ginny Toro RN - 11/16/2015 9:43 AM EDT Ginny Toro RN ? 11/16/2015 ??9:43 AM PICC/Midline Insertion Procedure Note Indications: Anti-infective and Medication Administration This insertion was not to replace a [...] to the planned procedure. Hand Hygiene: The rn paralegal did perform hand hygiene prior to line insertion. Catheter type: PICC Lot number: [id number] Procedure Technique: Skin was prepped with chlorhexidine. [...] insertion site. Final catheter length (with trimming): 40 cm Internal: 40 cm External: 0 cm Tip in SVC per YARI . The line was not placed over a guidewire. Post Procedure: Diagnosis: KIDNEY TRANSPLANT REJECTION Blood return noted on aspiration of line after placement confirmed. 5 mls of normal saline infused free flowing to gravity via PICC after insertion. Sterile dressing applied: Tegaderm and GUARDIVA. Findings: The patient did tolerate the procedure well. No Complications. Procedure Comments: NONE, ORDER FOR RIGHT ARM ONLY. 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 GINNY TORO RN 11/16/2015 Tal Eagle MD PROCEDURE/MINOR S URGICAL ORDERABLES * XR Vas Venous Access (PICC Placement) (11/16/2015 9:29 AM EDT) Anatomical Region Laterality Modality N/A Radio Fluoroscop y Narrative 11/16/2015 9:31 AM EDT EXAMINATION: XR PLACEMENT PICC LINE (IV TEAM) OVER 5 YEARS CLINICAL HISTORY: Confirmation of PICC line placement TECHNIQUE: C-arm placement of PICC. Limited view of the line tip only. COMPARISON: Chest x-ray 11/11/2017. FINDINGS: Intraprocedural frontal radiograph of the mediastinum demonstrates a Right PICC, with the catheter tip projected at the distal SVC just above the cavoatrial junction. Procedure Note Guy Michael MD - 11/16/2015 EXAMINATION: XR PLACEMENT PICC LINE (IV TEAM) OVER 5 YEARS CLINICAL HISTORY: Confirmation of PICC line placement TECHNIQUE: C-arm placement of PICC. Limited view of the line tip only. COMPARISON: Chest x-ray 11/11/2017. FINDINGS: Intraprocedural frontal radiograph of the mediastinumdemonstrates a Right PICC, with the catheter tip projected at the distal SVC just abovethe cavoatrial junction. Tal Eagle MD IMG FLUORO ORDERA BLES * POCT Glucose (11/16/2015 7:18 AM EDT) Glucose, POC 169 65 - 199 mg/dL [facility] Comment: Supplemental ranges: <140 mg/dL before meals <180 mg/dL all other times of the day Blood specimen (specimen) 11/16/2015 7:18 AM EDT 11/16/2015 7:18 AM EDT Tal Eagle MD POINT OF CARE BOBY T ORDERABLES Performing Organization Address City/State/[facility] Co de Phone Number [facility] [place] [phone] * Differential, Automated (11/16/2015 5:25 AM EDT) [facility] Neutrophil % 57.1 % [facility] Neutrophil Absolute 3.15 1.50 - 6.30 x10(3)/[facility] Lymph % 26.5 % [facility] Lymphocytes Abs 1.5 1.0 - 3.6 x10(3)/[facility] Monocyte % 12.7 % [facility] Monocyte Abs 0.7 0.2 - 1.0 x10(3)/[facility] Eos % 2.4 % [facility] Eosinophils Abs 0.1 0.0 - 0.5 x10(3)/[facility] Basophil % 0.9 % [facility] Baso Absolute 0.0 0.0 - 0.2 x10(3)/[facility] Immature Gran % 0.40 % [facility] Comment: Immature granulocytes(IG's)percentage and absolute count will include metamyelocytes, myelocytes, and promyelocytes. Blood smears from CBCs yielding IG's will be scanned manually for concordance. If this scan disagrees with the automated IG or if promyelocytes are noted, a manual differential will be performed. Immature Gran Absolute 0.02 0.00 - 0.05 x10(3)/mcL [facility] Blood specimen (specimen) 11/16/2015 5:25 AM EDT 11/16/2015 5:32 AM EDT Narrative Resulting Agency Comment Spec In Lab Tal Eagle MD HEMATOLOGY ORDERA BLES [facility] [place] [address] * (ABNORMAL) Hemogram (11/16/2015 5:25 AM EDT) White Blood Cell 5.5 4.0 - 10.0 x10(3)/mc L [facility] Red Blood Cell 4.13(L) 4.63 - 6.08 x10(6)/mc L [facility] Hemoglobin 13.1(L) 13.7 - 17.5 gm/dL [facility] Hematocrit 37.8(L) 40.0 - 51.0 % [facility] Mean Cell Volume 91.5 79.0 - 92.0 fL [facility] Mean Cell Hemoglobin 31.7 25.6 - 32.2 pg [facility] Mean Cell Hemoglobin Concentration 34.7 32.0 - 36.5 gm/dL [facility] Platelet 233 145 - 370 x10(3)/mc L [facility] RDW Standard Deviation 46.1(H) 35.0 - 46.0 fL [facility] RDW coefficient of variation 13.7 10.9 - 14.4 % [facility] Mean Platelet Volume 9.6 9.0 - 12.0 fL [facility] Blood specimen (specimen) 11/16/2015 5:25 AM EDT 11/16/2015 5:32 AM EDT Narrative Resulting Agency Comment Spec In Lab Tal Eagle MD HEMATOLOGY ORDERA BLES Performing Organization Address [facility]/ZIP Co de Phone Number [facility] [place] [address] * Blood culture (11/16/2015 5:25 AM EDT) Blood Culture No growth at 5 days. [facility] Blood specimen (specimen) STRUCTURE OF RIGHT HAND / Unknown 11/16/2015 5:25 AM EDT 11/16/2015 5:42 AM EDT Narrative Resulting Agency Comment Spec In Lab Tal Eagle MD MICROBIOLOGY - BL OOD ORDERABLES Performing Organization Address [facility] Co de Phone Number [facility] [place] [address] * (ABNORMAL) Phosphorus (11/16/2015 5:25 AM EDT) Phosphorus 2.3(L) 2.5 - 4.5 mg/dL [facility] Blood specimen (specimen) 11/16/2015 5:25 AM EDT 11/16/2015 5:32 AM EDT Narrative Resulting Agency Comment Spec In Lab Tal Eagle MD CHEMISTRY ORDERAB LES Performing Organization Address [facility] Co de Phone Number [facility] [place] [address] * (ABNORMAL) Magnesium (11/16/2015 5:25 AM EDT) Magnesium 0.62(L) 0.69 - 1.07 mmol/L [facility] Blood specimen (specimen) 11/16/2015 5:25 AM EDT 11/16/2015 5:32 AM EDT Narrative Resulting Agency Comment Spec In Lab Tal Eagle MD CHEMISTRY ORDERAB LES [facility] [place] [address] * (ABNORMAL) Basic Metabolic Panel (non-fasting) (11/16/2015 5:25 AM EDT) Glucose 146 65 - 199 mg/dL [facility] Comment:Diabetes: >=200 mg/d L plus symptoms Blood Urea Nitrogen 17 10 - 20 mg/dL [facility] Creatinine 1.36 0.80 - 1.50 mg/dL [facility] Comment: Please note that the pediatric reference intervals supplied above were not validated at [facility]. Results from pediatric patients should be interpreted in conjunction to the patient's age, height and muscle mass. Sodium 141 135 - 145 mmol/L [facility] Potassium 4.7 3.5 - 5.0 mmol/L [facility] Comment: Please note: ??Patients with WBC >100,000 may have falsely elevated Potassium levels. ??For accurate Potassium quantification in these patients send serum separator tube (gold top) for subsequent determinations. ??Contact the Clinical Chemistry Laboratory if there are any questions. Chloride 104 98 - 107 mmol/L [facility] Carbon Dioxide 24 22 - 31 mmol/L [facility] Anion Gap 13 5 - 15 mmol/L [facility] Calcium 9.2 8.5 - 10.5 mg/dL [facility] Est Glomerular Filtration Rate 52(L) >=60 [facility] Comment: This estimated GFR (eGFR) [...] the following links into your internet browser. http://[employer])/DHnkdep http://[employer] ([employer])/DHMCnkf Blood specimen (specimen) 11/16/2015 5:25 AM EDT 11/16/2015 5:32 AM EDT Narrative Resulting Agency Comment Spec In Lab Tal Eagle MD CHEMISTRY ORDERAB LES [facility] [place] [address] * POCT Glucose (11/16/2015 4:15 AM EDT) Glucose, POC 139 65 - 199 mg/dL [facility] Comment: Supplemental ranges: <140 mg/dL before meals <180 mg/dL all other times of the day Blood specimen (specimen) 11/16/2015 4:15 AM EDT 11/16/2015 4:15 AM EDT Tal Eagle MD POINT OF CARE BOBY T ORDERABLES Performing Organization Address City/[facility]/ZIP Co de Phone Number [facility] [place] [address] * POCT Glucose (11/15/2015 11:46 PM EDT) Glucose, POC 140 65 - 199 mg/dL [facility] Comment: Supplemental ranges: <140 mg/dL before meals <180 mg/dL all other times of the day Blood specimen (specimen) 11/15/2015 11:46 PM EDT 11/15/2015 11:46 PM EDT Tal Eagle MD POINT OF CARE BOBY T ORDERABLES [facility] [place] [address] * POCT Glucose (11/15/2015 7:19 PM EDT) Glucose, POC 199 65 - 199 mg/dL [facility] Comment: Supplemental ranges: <140 mg/dL before meals <180 mg/dL all other times of the day Blood specimen (specimen) 11/15/2015 7:19 PM EDT 11/15/2015 7:19 PM EDT Tal Eagle MD POINT OF CARE BOBY T ORDERABLES [facility] [place] [address] * POCT Glucose (11/15/2015 4:41 PM EDT) Glucose, POC 197 65 - 199 mg/dL [facility] Comment: Supplemental ranges: <140 mg/dL before meals <180 mg/dL all other times of the day Blood specimen (specimen) 11/15/2015 4:41 PM EDT 11/15/2015 4:41 PM EDT Tal Eagle MD POINT OF CARE BOBY T ORDERABLES Performing Organization Address City/[facility]/ZIP Co de Phone Number [facility] [place] [address] * POCT Glucose (11/15/2015 12:00 PM EDT) Glucose, POC 177 65 - 199 mg/dL [facility] Comment: Supplemental ranges: <140 mg/dL before meals <180 mg/dL all other times of the day Blood specimen (specimen) 11/15/2015 12:00 PM EDT 11/15/2015 12:00 PM EDT Tal Eagle MD POINT OF CARE BOBY T ORDERABLES [facility] [place] [address] * POCT Glucose (11/15/2015 7:21 AM EDT) Glucose, POC 132 65 - 199 mg/dL [facility] Comment: Supplemental ranges: <140 mg/dL before meals <180 mg/dL all other times of the day Blood specimen (specimen) 11/15/2015 7:21 AM EDT 11/15/2015 7:21 AM EDT Tal Eagle MD POINT OF CARE BOBY T ORDERABLES Performing Organization Address City/[facility]/[place] [address] * Differential, Automated (11/15/2015 6:14 AM EDT) Neutrophil % 67.5 % [facility] Neutrophil Absolute 4.24 1.50 - 6.30 x10(3)/[facility] Lymph % 18.0 % [facility] Lymphocytes Abs 1.1 1.0 - 3.6 x10(3)/[facility] Monocyte % 12.9 % [facility] Monocyte Abs 0.8 0.2 - 1.0 x10(3)/[facility] Eos % 0.8 % [facility] Eosinophils Abs 0.0 0.0 - 0.5 x10(3)/[facility] Basophil % 0.5 % [facility] Baso Absolute 0.0 0.0 - 0.2 x10(3)/[facility] Immature Gran % 0.30 % [facility] Blood specimen (specimen) 11/15/2015 6:14 AM EDT 11/15/2015 6:34 AM EDT Narrative Resulting Agency Comment Spec In Lab Tal Eagle MD HEMATOLOGY ORDERA BLES Performing Organization Address City/[facility]/ZIP Co de Phone Number [facility] [place] [address] * (ABNORMAL) Hemogram (11/15/2015 6:14 AM EDT) White Blood Cell 6.3 4.0 - 10.0 x10(3)/ L [facility] Red Blood Cell 3.97(L) 4.63 - 6.08 x10(6)/[facility] Hemoglobin 12.8(L) 13.7 - 17.5 gm/dL [facility] Hematocrit 36.0(L) 40.0 - 51.0 % [facility] Mean Cell Volume 90.7 79.0 - 92.0 fL [facility] Mean Cell Hemoglobin 32.2 25.6 - 32.2 pg [facility] Mean Cell Hemoglobin Concentration 35.6 32.0 - 36.5 gm/dL [facility] Platelet 215 145 - 370 x10(3)/[facility] RDW Standard Deviation 45.6 35.0 - 46.0 fL [facility] RDW coefficient of variation 13.7 10.9 - 14.4 % [facility] Mean Platelet Volume 9.8 9.0 - 12.0 fL [facility] Blood specimen (specimen) 11/15/2015 6:14 AM EDT 11/15/2015 6:34 AM EDT Narrative Resulting Agency Comment Spec In Lab Tal Eagle MD HEMATOLOGY ORDERA BLES [facility] [place] [address] * Blood culture (11/15/2015 6:14 AM EDT) Blood Culture No growth at 5 days. [facility] Blood specimen (specimen) STRUCTURE OF RIGHT HAND / Unknown 11/15/2015 6:14 AM EDT 11/15/2015 7:39 AM EDT Narrative Resulting Agency Comment Spec In Lab Tal Eagle MD MICROBIOLOGY - BL OOD ORDERABLES Performing Organization Address City/[facility]/ZIP Co de Phone Number [facility] [place] [address] * (ABNORMAL) Phosphorus (11/15/2015 6:14 AM EDT) Phosphorus 1.8(L) 2.5 - 4.5 mg/dL [facility] Blood specimen (specimen) 11/15/2015 6:14 AM EDT 11/15/2015 6:34 AM EDT Narrative Resulting Agency Comment Spec In Lab Tal Eagle MD CHEMISTRY ORDERAB LES Performing Organization Address [facility] Co de Phone Number [facility] [place] [address] * (ABNORMAL) Magnesium (11/15/2015 6:14 AM EDT) [facility] Signature Magnesium 0.55(L) 0.69 - 1.07 mmol/L [facility] Blood specimen (specimen) 11/15/2015 6:14 AM EDT 11/15/2015 6:34 AM EDT Narrative Resulting Agency Comment Spec In Lab Tal Eagle MD CHEMISTRY ORDERAB LES Performing Organization Address [facility] Co de Phone Number [facility] [place] [address] * (ABNORMAL) Basic Metabolic Panel (non-fasting) (11/15/2015 6:14 AM EDT) Glucose 139 65 - 199 mg/dL [facility] Comment:Diabetes: >=200 mg/d L plus symptoms Blood Urea Nitrogen 12 10 - 20 mg/dL [facility] Creatinine 1.28 0.80 - 1.50 mg/dL [facility] Comment: Please note that the pediatric reference intervals supplied above were not validated at [facility]. Results from pediatric patients should be interpreted in conjunction to the patient's age, height and muscle mass. Sodium 138 135 - 145 mmol/L [facility] Potassium 4.1 3.5 - 5.0 mmol/L [facility] Comment: Please note: ??Patients with WBC >100,000 may have falsely elevated Potassium levels. ??For accurate Potassium quantification in these patients send serum separator tube (gold top) for subsequent determinations. ??Contact the Clinical Chemistry Laboratory if there are any questions. Chloride 102 98 - 107 mmol/L [facility] Carbon Dioxide 23 22 - 31 mmol/L [facility] Anion Gap 13 5 - 15 mmol/L [facility] Calcium 8.6 8.5 - 10.5 mg/dL [facility] Est Glomerular Filtration Rate 56(L) >=60 [facility] Comment: This estimated GFR (eGFR) [...] the following links into your internet browser. http://[employer] ([employer])/DHnkdep http://[employer] ([employer])/DHMCnkf Blood specimen (specimen) 11/15/2015 6:14 AM EDT 11/15/2015 6:34 AM EDT Narrative Resulting Agency Comment Spec In Lab Tal Eagle MD CHEMISTRY ORDERAB LES [facility] [place] [address] * POCT Glucose (11/15/2015 4:29 AM EDT) Glucose, POC 127 65 - 199 mg/dL [facility] Comment: Supplemental ranges: <140 mg/dL before meals <180 mg/dL all other times of the day Blood specimen (specimen) 11/15/2015 4:29 AM EDT 11/15/2015 4:29 AM EDT Tal Eagle MD POINT OF CARE BOBY T ORDERABLES Performing Organization Address [facility] Co de Phone Number [facility] [place] [address] * POCT Glucose (11/15/2015 12:21 AM EDT) Glucose, POC 145 65 - 199 mg/dL [facility] Comment: Supplemental ranges: <140 mg/dL before meals <180 mg/dL all other times of the day Blood specimen (specimen) 11/15/2015 12:21 AM EDT 11/15/2015 12:21 AM EDT Tal Eagle MD POINT OF CARE BOBY T ORDERABLES Performing Organization Address [facility] Co de Phone Number [facility] [place] [address] * (ABNORMAL) POCT Glucose (11/14/2015 7:12 PM EDT) Glucose, POC 206(H) 65 - 199 mg/dL [facility] Comment: Supplemental ranges: <140 mg/dL before meals <180 mg/dL all other times of the day Blood specimen (specimen) 11/14/2015 7:12 PM EDT 11/14/2015 7:12 PM EDT Tal Eagle MD POINT OF CARE BOBY T ORDERABLES Performing Organization Address [facility] Co de Phone Number [facility] [place] [address] * EKG 12 Lead (11/14/2015 5:24 PM EDT) Ventricular rate 73 BPM MUSE SYSTEM Atrial Rate 73 BPM MUSE SYSTEM P-R Interval 160 ms MUSE SYSTEM QRS Duration 100 ms MUSE SYSTEM Q-T Interval 376 ms MUSE SYSTEM QTC Calculated (Bezet) 414 ms MUSE SYSTEM Calculated P [place] 60 degrees MUSE SYSTEM Calculated R [place] -55 degrees MUSE SYSTEM Calculated T [place] -8 degrees MUSE SYSTEM INTERPRETATION Sinus rhythm with Premature supraventricular complexes Left anterior fascicular block Abnormal ECG When compared with ECG of 12-NOV-2015 22:35, Inverted T waves have replaced nonspecific T wave abnormality in Inferior leads QT has shortened Confirmed by MD AUTUMN, OG ([id number]) on 11/15/2015 8:08:01 AM MUSE SYSTEM 11/14/2015 5:24 PM EDT 11/15/2015 8:08 AM EDT Tal Eagle MD ECG ORDERABLES MUSE SYSTEM * POCT Glucose (11/14/2015 3:55 PM EDT) [facility] Signature Glucose, POC 176 65 - 199 mg/dL [facility] Comment: Supplemental ranges: <140 mg/dL before meals <180 mg/dL all other times of the day Blood specimen (specimen) 11/14/2015 3:55 PM EDT 11/14/2015 3:55 PM EDT Tal Eagle MD POINT OF CARE BOBY T ORDERABLES Performing Organization Address [facility] Co de Phone Number [facility] [place] [address] * US Renal Transplant Left (11/14/2015 1:51 PM EDT) Anatomical Region Laterality Modality Abdomen Left Ultrasound 11/14/2015 1:51 PM EDT Impressions 11/14/2015 2:19 PM EDT Impression Transplant Kidney Summary 1. ??New mild pelviectasis. 2. ??No peritransplant collection or renal mass seen. 3. ??Persistent and largely unchanged nonspecific elevated intrarenal resistive indices. 4. ??Patent main renal artery and vein. I ??viewed the images and agree with the above interpretation. ? Jolly Payne MD Electronically Signed Final Report ?? 11/14/2015 02:19 pm Narrative 11/14/2015 2:19 PM EDT Transplant ? (Signed Final 11/14/2015 02:19 pm) Patient Info ID #: ? [id number] ? : [birth year] (65 yrs) Name: ? ETHEL Patricia AKINS ? Visit Date:11/14/2015 01:51 pm Performed By Performed By: ? Jessee Espinal RDMS Attending: ?Jolly Payne MD Referred By: ?ALBANIA SCHMID MD Service(s) Provided ??URTPL - Ultrasound Renal Transplant - Left - [id number] Indications ??admitted with UTI, rule out abscess or collection Comparison U/S - RENAL TRANSPLANT LEFT 09/17/15 Renal Allograft Size (cm) ? L: 12.2 Cortical Thickness: ?Normal Corticomedullary Differention: Normal Echogenicity: ?Normal Perinephric Fluid/Collections: No collection identified Hydronephrosis: ?Mild pelviectasis Comment: ?LLQ renal transplant. ? AP diameter of the renal pelvis measured at the ? hilum, 8 mm. Renal Transplant Duplex ? PSV ? EDV ? RI ??Waveform ? (cm/s) ??(cm/s) Arcuate Artery ?25.8 ?4.14 ?0.84 ??Patent Upper Pole: Arcuate Artery ?47.7 ?7.74 ?0.84 ??Patent Mid Allograft: Arcuate Artery ?21.3 ?4.93 ?0.77 ??Patent Lower Pole: Main Renal Artery ?210.0 ?34.4 ?0.84 ??Patent At Anastomosis: Main Renal Artery ?190.0 ?27.0 ?0.86 ??Patent Mid: Main Renal Artery ?184.0 ?28.8 ?0.84 ??Patent At Hilum: Main Renal Vein ? Patent Proximal: Main Renal Vein ? Patent Mid: Main Renal Vein ? Patent Distal: Urinary Bladder Pre-void (cm) ?L: 3.3 ? AP: ??3.5 ? TV: ??3.4 Vol (ml): ?20.6 Comment: ?Mildly distended and grossly unremarkable for degree ? of distention. Procedure Note Jolly Payne MD - 11/14/2015 Transplant (Signed Final 11/14/2015 02:19pm) Patient Info ID #: [id number] : [birth year] (65 yrs) Name: ETHEL AKINS Visit Date:11/14/2015 01:51 pm Performed By Performed By: Jessee Espinal RDMS Attending: Jolly Payne MD Referred By: ALBANIA SCHMID MD Service(s) Provided URTPL - Ultrasound Renal Transplant - Left - [id number] Indications admitted with UTI, rule out abscess or collection Comparison U/S - RENAL TRANSPLANT LEFT 09/17/15 Renal Allograft Size (cm) L: 12.2 Cortical Thickness: Normal Corticomedullary Differention: Normal Echogenicity: Normal Perinephric Fluid/Collections: No collection identified Hydronephrosis: Mild pelviectasis Comment: LLQ renal transplant. AP diameter of the renal pelvis measured at the hilum, 8 mm. Renal Transplant Duplex PSV EDV RI Waveform (cm/s) (cm/s) Arcuate Artery 25.8 4.14 0.84 Patent Upper Pole: Arcuate Artery 47.7 7.74 0.84 Patent Mid Allograft: Arcuate Artery 21.3 4.93 0.77 Patent Lower Pole: Main Renal Artery 210.0 34.4 0.84 Patent At Anastomosis: Main Renal Artery 190.0 27.0 0.86 Patent Mid: Main Renal Artery 184.0 28.8 0.84 Patent At [place]: Main Renal Vein Patent Proximal: Main Renal Vein Patent Mid: Main Renal Vein Patent Distal: Urinary Bladder Pre-void (cm) L: 3.3 AP: 3.5 TV: 3.4 Vol (ml): 20.6 Comment: Mildly distended and grossly unremarkable for degree of distention. IMPRESSION Impression Transplant Kidney Summary 1. New mild pelviectasis. 2. No peritransplant collection or renal mass seen. 3. Persistent and largely unchanged nonspecific elevated intrarenal resistive indices. 4. Patent main renal artery and vein. I viewed the images and agree with the above interpretation. Jolly Payne MD Electronically Signed Final Report 11/14/2015 02:19 pm Tal Eagle MD [facility] GEN ORDERA BLES * POCT Glucose (11/14/2015 11:58 AM EDT) Glucose, POC 134 65 - 199 mg/dL [facility] Comment: Supplemental ranges: <140 mg/dL before meals <180 mg/dL all other times of the day Blood specimen (specimen) 11/14/2015 11:58 AM EDT 11/14/2015 11:58 AM EDT Tal Eagle MD POINT OF CARE BOBY T ORDERABLES [facility] [place] [address] * Tacrolimus level (11/14/2015 9:42 AM EDT) Tacrolimus 9.0 ng/mL [facility] Comment:Trough therapeutic: 5-15 ng/mL Blood specimen (specimen) 11/14/2015 9:42 AM EDT 11/14/2015 10:48 AM EDT Narrative Resulting Agency Comment Spec In Lab Tal Eagle MD CHEMISTRY ORDERAB LES Performing Organization Address [facility] Co de Phone Number [facility] [place] [address] * (ABNORMAL) POCT Glucose (11/14/2015 7:26 AM EDT) Glucose, POC 201(H) 65 - 199 mg/dL [facility] Comment: Supplemental ranges: <140 mg/dL before meals <180 mg/dL all other times of the day Blood specimen (specimen) 11/14/2015 7:26 AM EDT 11/14/2015 7:26 AM EDT Tal Eagle MD POINT OF CARE BOBY T ORDERABLES Performing Organization Address [facility] Co de Phone Number [facility] [place] [address] * (ABNORMAL) Phosphorus (11/14/2015 5:18 AM EDT) Phosphorus 1.6(L) 2.5 - 4.5 mg/dL [facility] Blood specimen (specimen) Venous Draw / Unknown 11/14/2015 5:18 AM EDT 11/14/2015 6:05 AM EDT Narrative Resulting Agency Comment Spec In Lab Tal Eagle MD CHEMISTRY ORDERAB LES Performing Organization Address City/[facility]/ZIP Co de Phone Number [facility] [place] [address] * (ABNORMAL) Magnesium (11/14/2015 5:18 AM EDT) [facility] Magnesium 0.59(L) 0.69 - 1.07 mmol/L [facility] Blood specimen (specimen) Venous Draw / Unknown 11/14/2015 5:18 AM EDT 11/14/2015 6:05 AM EDT Narrative Resulting Agency Comment Spec In Lab Tal Eagle MD CHEMISTRY ORDERAB LES [facility] [place] [address] * Blood culture (11/14/2015 5:18 AM EDT) [facility] Blood Culture No growth at 5 days. [facility] Blood specimen (specimen) STRUCTURE OF RIGHT HAND / Unknown 11/14/2015 5:18 AM EDT 11/14/2015 7:35 AM EDT Narrative Resulting Agency Comment Spec In Lab Tal Eagle MD MICROBIOLOGY - BL OOD ORDERABLES Performing Organization Address City/[facility]/ZIP Co de Phone Number [facility] [place] [address] * (ABNORMAL) Differential, Automated (11/14/2015 5:18 AM EDT) [facility] Neutrophil % 79.9 % [facility] Neutrophil Absolute 6.85(H) 1.50 - 6.30 x10(3)/mc L [facility] Lymph % 9.8 % [facility] Lymphocytes Abs 0.8(L) 1.0 - 3.6 x10(3)/mc L [facility] Monocyte % 9.5 % [facility] Monocyte Abs 0.8 0.2 - 1.0 x10(3)/mc L [facility] Eos % 0.2 % [facility] Eosinophils Abs 0.0 0.0 - 0.5 x10(3)/mc L [facility] Basophil % 0.2 % [facility] Baso Absolute 0.0 0.0 - 0.2 x10(3)/[facility] [place] [facility] Immature Gran % 0.40 % [facility] Comment: Immature granulocytes(IG's)percentage and absolute count will include metamyelocytes, myelocytes, and promyelocytes. Blood smears from CBCs yielding IG's will be scanned manually for concordance. If this scan disagrees with the automated IG or if promyelocytes are noted, a manual differential will be performed. Immature Gran Absolute 0.03 0.00 - 0.05 x10(3)/[facility] [place] [facility] Blood specimen (specimen) 11/14/2015 5:18 AM EDT 11/14/2015 6:05 AM EDT Narrative Resulting Agency Comment Spec In Lab Tal Eagle MD HEMATOLOGY ORDERA BLES Performing Organization Address City/State/[facility] Co de Phone Number [facility] [place] [address] * (ABNORMAL) Hemogram (11/14/2015 5:18 AM EDT) White Blood Cell 8.6 4.0 - 10.0 x10(3)/[facility] [place] [facility] Red Blood Cell 4.18(L) 4.63 - 6.08 x10(6)/[facility] Hemoglobin 13.2(L) 13.7 - 17.5 gm/dL [facility] Hematocrit 38.0(L) 40.0 - 51.0 % [facility] Mean Cell Volume 90.9 79.0 - 92.0 fL [facility] Mean Cell Hemoglobin 31.6 25.6 - 32.2 pg [facility] Mean Cell Hemoglobin Concentration 34.7 32.0 - 36.5 gm/dL [facility] Platelet 223 145 - 370 x10(3)/[facility] [place] [facility] RDW Standard Deviation 47.4(H) 35.0 - 46.0 fL [facility] RDW coefficient of variation 14.3 10.9 - 14.4 % [facility] Mean Platelet Volume 9.6 9.0 - 12.0 fL [facility] Blood specimen (specimen) 11/14/2015 5:18 AM EDT 11/14/2015 6:05 AM EDT Narrative Resulting Agency Comment Spec In Lab Tal Eagle MD HEMATOLOGY ORDERA BLES [facility] [place] [address] * (ABNORMAL) Basic Metabolic Panel (non-fasting) (11/14/2015 5:18 AM EDT) Glucose 168 65 - 199 mg/dL [facility] Comment:Diabetes: >=200 mg/d L plus symptoms Blood Urea Nitrogen 13 10 - 20 mg/dL [facility] Creatinine 1.47 0.80 - 1.50 mg/dL [facility] Comment: Please note that the pediatric reference intervals supplied above were not validated at [facility]. Results from pediatric patients should be interpreted in conjunction to the patient's age, height and muscle mass. Sodium 135 135 - 145 mmol/L [facility] Potassium 3.9 3.5 - 5.0 mmol/L [facility] Comment: Please note: ??Patients with WBC >100,000 may have falsely elevated Potassium levels. ??For accurate Potassium quantification in these patients send serum separator tube (gold top) for subsequent determinations. ??Contact the Clinical Chemistry Laboratory if there are any questions. Chloride 98 98 - 107 mmol/L [facility] Carbon Dioxide 23 22 - 31 mmol/L [facility] Anion Gap 14 5 - 15 mmol/L [facility] Calcium 8.7 8.5 - 10.5 mg/dL [facility] Est Glomerular Filtration Rate 48(L) >=60 [facility] Comment: This estimated GFR (eGFR) [...] the following links into your internet browser. http://[employer])/DHnkdep http://[employer] ([employer])/DHMCnkf Blood specimen (specimen) 11/14/2015 5:18 AM EDT 11/14/2015 6:05 AM EDT Narrative Resulting Agency Comment Spec In Lab Tal Eagle MD CHEMISTRY ORDERAB LES Performing Organization Address [facility] Co de Phone Number [facility] [place] [address] * POCT Glucose (11/14/2015 4:25 AM EDT) Glucose, POC 159 65 - 199 mg/dL [facility] Comment: Supplemental ranges: <140 mg/dL before meals <180 mg/dL all other times of the day Blood specimen (specimen) 11/14/2015 4:25 AM EDT 11/14/2015 4:25 AM EDT Tal Eagle MD POINT OF CARE BOBY T ORDERABLES Performing Organization Address [facility] Co de Phone Number [facility] [place] [address] * POCT Glucose (11/14/2015 12:12 AM EDT) Glucose, POC 180 65 - 199 mg/dL [facility] Comment: Supplemental ranges: <140 mg/dL before meals <180 mg/dL all other times of the day Blood specimen (specimen) 11/14/2015 12:12 AM EDT 11/14/2015 12:12 AM EDT Tal Eagle MD POINT OF CARE BOBY T ORDERABLES [facility] [place] [address] * POCT Glucose (11/13/2015 8:13 PM EDT) Glucose, POC 182 65 - 199 mg/dL [facility] Comment: Supplemental ranges: <140 mg/dL before meals <180 mg/dL all other times of the day Blood specimen (specimen) 11/13/2015 8:13 PM EDT 11/13/2015 8:13 PM EDT Tal Ealge MD POINT OF CARE BOBY T ORDERABLES Performing Organization Address City/[facility]/ZIP Co de Phone Number [facility] [place] [address] * POCT Glucose (11/13/2015 7:02 PM EDT) Glucose, POC 153 65 - 199 mg/dL [facility] Comment: Supplemental ranges: <140 mg/dL before meals <180 mg/dL all other times of the day Blood specimen (specimen) 11/13/2015 7:02 PM EDT 11/13/2015 7:02 PM EDT Tal Eagle MD POINT OF CARE BOBY T ORDERABLES [facility] [place] [address] * Blood culture (11/13/2015 4:43 PM EDT) Blood Culture No growth at 5 days. [facility] Blood specimen (specimen) 11/13/2015 4:43 PM EDT 11/13/2015 5:11 PM EDT Comment:RH Narrative Resulting Agency Comment Spec In Lab Tal Eagle MD MICROBIOLOGY - BL OOD ORDERABLES [facility] [place] [address] * Blood culture (11/13/2015 4:30 PM EDT) [facility] Blood Culture No growth at 5 days. [facility] Blood specimen (specimen) 11/13/2015 4:30 PM EDT 11/13/2015 5:11 PM EDT Comment:RA Narrative Resulting Agency Comment Spec In Lab Tal Eagle MD MICROBIOLOGY - BL OOD ORDERABLES Performing Organization Address [facility] Co de Phone Number [facility] [place] [address] * (ABNORMAL) Cardiac Enzymes (11/13/2015 4:30 PM EDT) [facility] Troponin-T <0.03 <=0.03 ng/mL [facility] Comment: 0.03 ng/mL: Represents the 99th percentile upper reference limit for normals. >0.03 ng/mL: Elevated cardiac troponin T level indicative of myocardial damage. Diagnosis of acute, evolving or recent MS requires a typical rise and gradual fall [...] consensus document of the Joint Society of Cardiology/[place] [employer] Committee for the redefinition of myocardial infarction. ??Journal of the [place] [employer]iology 2000; 36: 959-969] Creatine Kinase 277(H) 0 - 200 unit/L [facility] Blood specimen (specimen) 11/13/2015 4:30 PM EDT 11/13/2015 4:50 PM EDT Narrative Resulting Agency Comment Spec In Lab Tal Eagle MD CHEMISTRY ORDERAB LES Performing Organization Address City/[facility]/ZIP Co de Phone Number [facility] [place] [address] * POCT Glucose (11/13/2015 4:27 PM EDT) Glucose, POC 185 65 - 199 mg/dL [facility] Comment: Supplemental ranges: <140 mg/dL before meals <180 mg/dL all other times of the day Blood specimen (specimen) 11/13/2015 4:27 PM EDT 11/13/2015 4:27 PM EDT Tal Eagle MD POINT OF CARE BOBY T ORDERABLES [facility] [place] [address] * POCT Glucose (11/13/2015 11:29 AM EDT) Glucose, POC 184 65 - 199 mg/dL [facility] Comment: Supplemental ranges: <140 mg/dL before meals <180 mg/dL all other times of the day Blood specimen (specimen) 11/13/2015 11:29 AM EDT 11/13/2015 11:29 AM EDT Tal Eagle MD POINT OF CARE BOBY T ORDERABLES [facility] [place] [address] * (ABNORMAL) POCT Glucose (11/13/2015 8:12 AM EDT) Glucose, POC 228(H) 65 - 199 mg/dL [facility] Comment: Supplemental ranges: <140 mg/dL before meals <180 mg/dL all other times of the day Blood specimen (specimen) 11/13/2015 8:12 AM EDT 11/13/2015 8:12 AM EDT Tal Eagle MD POINT OF CARE BOBY T ORDERABLES [facility] [place] [address] * (ABNORMAL) Phosphorus (11/13/2015 7:30 AM EDT) [facility] Phosphorus 1.6(L) 2.5 - 4.5 mg/dL [facility] Blood specimen (specimen) Venous Draw / Unknown 11/13/2015 7:30 AM EDT 11/13/2015 7:52 AM EDT Narrative Resulting Agency Comment Spec In Lab Tal Eagle MD CHEMISTRY ORDERAB LES Performing Organization Address [facility] Co de Phone Number [facility] [place] [address] * (ABNORMAL) Magnesium (11/13/2015 7:30 AM EDT) [facility] Magnesium 0.40(L) 0.69 - 1.07 mmol/L [facility] Blood specimen (specimen) Venous Draw / Unknown 11/13/2015 7:30 AM EDT 11/13/2015 7:52 AM EDT Narrative Resulting Agency Comment Spec In Lab Tal Eagle MD CHEMISTRY ORDERAB LES Performing Organization Address [facility] Co de Phone Number [facility] [place] [address] * Cardiac Enzymes (11/13/2015 7:30 AM EDT) [facility] Troponin-T <0.03 <=0.03 ng/mL [facility] Comment: 0.03 ng/mL: Represents the 99th percentile upper reference limit for normals. >0.03 ng/mL: Elevated cardiac troponin T level indicative of myocardial damage. Diagnosis of acute, evolving or recent MS requires a typical rise and gradual fall [...] consensus document of the Joint Society of Cardiology/[place] [employer] Committee for the redefinition of myocardial infarction. ??Journal of the [place] [employer]iology 2000; 36: 959-969] Creatine Kinase 193 0 - 200 unit/L [facility] Comment:result rechecked-mkf Blood specimen (specimen) Venous Draw / Unknown 11/13/2015 7:30 AM EDT 11/13/2015 7:52 AM EDT Narrative Resulting Agency Comment Spec In Lab Tal Eagle MD CHEMISTRY ORDERAB LES [facility] [place] [address] * (ABNORMAL) Differential, Automated (11/13/2015 7:30 AM EDT) Neutrophil % 86.3 % [facility] Neutrophil Absolute 8.26(H) 1.50 - 6.30 x10(3)/mc L [facility] Lymph % 6.9 % [facility] Lymphocytes Abs 0.7(L) 1.0 - 3.6 x10(3)/mc L [facility] Monocyte % 6.2 % [facility] Monocyte Abs 0.6 0.2 - 1.0 x10(3)/mc L [facility] Eos % 0.1 % [facility] Eosinophils Abs 0.0 0.0 - 0.5 x10(3)/mc L [facility] Basophil % 0.2 % [facility] Baso Absolute 0.0 0.0 - 0.2 x10(3)/mc L [facility] Immature Gran % 0.30 % [facility] Comment: Immature granulocytes(IG's)percentage and absolute count will include metamyelocytes, myelocytes, and promyelocytes. Blood smears from CBCs yielding IG's will be scanned manually for concordance. If this scan disagrees with the automated IG or if promyelocytes are noted, a manual differential will be performed. Immature Gran Absolute 0.03 0.00 - 0.05 x10(3)/ L [facility] Blood specimen (specimen) 11/13/2015 7:30 AM EDT 11/13/2015 7:52 AM EDT Narrative Resulting Agency Comment Spec In Lab Tal Eagle MD HEMATOLOGY ORDERA BLES [facility] [place] [address] * (ABNORMAL) Hemogram (11/13/2015 7:30 AM EDT) White Blood Cell 9.6 4.0 - 10.0 x10(3)/[facility] [place] [facility] Red Blood Cell 4.00(L) 4.63 - 6.08 x10(6)/[facility] Hemoglobin 13.0(L) 13.7 - 17.5 gm/dL [facility] Hematocrit 36.3(L) 40.0 - 51.0 % [facility] Mean Cell Volume 90.8 79.0 - 92.0 fL [facility] Mean Cell Hemoglobin 32.5(H) 25.6 - 32.2 pg [facility] Mean Cell Hemoglobin Concentration 35.8 32.0 - 36.5 gm/dL [facility] Platelet 214 145 - 370 x10(3)/[facility] [place] [facility] RDW Standard Deviation 46.6(H) 35.0 - 46.0 fL [facility] RDW coefficient of variation 14.0 10.9 - 14.4 % [facility] Mean Platelet Volume 9.4 9.0 - 12.0 fL [facility] Blood specimen (specimen) 11/13/2015 7:30 AM EDT 11/13/2015 7:52 AM EDT Narrative Resulting Agency Comment Spec In Lab Tal Eagle MD HEMATOLOGY ORDERRay PEDERSON [facility] [place] [address] * (ABNORMAL) Basic Metabolic Panel (non-fasting) (11/13/2015 7:30 AM EDT) Glucose 238(H) 65 - 199 mg/dL [facility] Comment:Diabetes: >=200 mg/d L plus symptoms Blood Urea Nitrogen 16 10 - 20 mg/dL [facility] Creatinine 1.71(H) 0.80 - 1.50 mg/dL [facility] Comment: Please note that the pediatric reference intervals supplied above were not validated at [facility]. Results from pediatric patients should be interpreted in conjunction to the patient's age, height and muscle mass. Sodium 133(L) 135 - 145 mmol/L [facility] Potassium 3.0(Criti raulito) 3.5 - 5.0 mmol/L [facility] Comment: Results rechecked-mkf Called by: canelo, Read back by:tania rendon _, Date/Time:11/13/15 09:12. Please note: ??Patients with WBC >100,000 may have falsely elevated Potassium levels. ??For accurate Potassium quantification in these patients send serum separator tube (gold top) for subsequent determinations. ??Contact the Clinical Chemistry Laboratory if there are any questions. Chloride 98 98 - 107 mmol/L [facility] Carbon Dioxide 21(L) 22 - 31 mmol/L [facility] Anion Gap 14 5 - 15 mmol/L [facility] Calcium 8.2(L) 8.5 - 10.5 mg/dL [facility] Comment:result rechecked-mkf Est Glomerular Filtration Rate 40(L) >=60 [facility] Comment: This [...] the following links into your internet browser. http://[employer] ([employer])/DHnkdep http://[employer] ([employer])/DHMCnkf Blood specimen (specimen) 11/13/2015 7:30 AM EDT 11/13/2015 7:52 AM EDT Narrative Resulting Agency Comment Spec In Lab Tal Eagle MD CHEMISTRY ORDERAB LES Performing Organization Address [facility] Co de Phone Number [facility] [place] [address] * Tacrolimus level (11/13/2015 7:30 AM EDT) Pathologist [facility] Tacrolimus 10.7 ng/mL [facility] Comment:Trough therapeutic: 5-15 ng/mL Blood specimen (specimen) 11/13/2015 7:30 AM EDT 11/13/2015 11:08 AM EDT Narrative Resulting Agency Comment Spec In Lab Tal Eagle MD CHEMISTRY ORDERAB LES Performing Organization Address [facility] Co de Phone Number [facility] [place] [address] * POCT Glucose (11/13/2015 3:47 AM EDT) Glucose, POC 162 65 - 199 mg/dL [facility] Comment: Supplemental ranges: <140 mg/dL before meals <180 mg/dL all other times of the day Blood specimen (specimen) 11/13/2015 3:47 AM EDT 11/13/2015 3:47 AM EDT Tal Eagle MD POINT OF CARE BOBY T ORDERABLES Performing Organization Address [facility] Co de Phone Number [facility] [place] [address] * Cardiac Enzymes (11/13/2015 12:10 AM EDT) Troponin-T <0.03 <=0.03 ng/mL [facility] Comment: 0.03 ng/mL: Represents the 99th percentile upper reference limit for normals. >0.03 ng/mL: Elevated cardiac troponin T level indicative of myocardial damage. Diagnosis of acute, evolving or recent MS requires a typical rise and gradual fall [...] consensus document of the Joint Society of Cardiology/[place] [employer] Committee for the redefinition of myocardial infarction. ??Journal of the [place] [employer]iology 2000; 36: 959-969] Creatine Kinase 110 0 - 200 unit/L [facility] Blood specimen (specimen) 11/13/2015 12:10 AM EDT 11/13/2015 12:19 AM EDT Narrative Resulting Agency Comment Spec In Lab Tal Eagle MD CHEMISTRY ORDERAB LES [facility] [place] [address] * EKG 12 Lead (11/12/2015 10:35 PM EDT) [facility] Ventricular rate 102 BPM MUSE SYSTEM Atrial Rate 107 BPM MUSE SYSTEM QRS Duration 94 ms MUSE SYSTEM Q-T Interval 358 ms MUSE SYSTEM QTC Calculated (Bezet) 466 ms MUSE SYSTEM Calculated R [place] -60 degrees MUSE SYSTEM Calculated T [place] 19 degrees MUSE SYSTEM INTERPRETATION Sinus tachycardia Premature atrial complexes Left anterior fascicular block Abnormal ECG When compared with ECG of 16-SEP-2015 10:10, Vent. rate has increased BY ??42 BPM T wave inversion no longer evident in Inferior leads Confirmed by Damien Ellis MD ([id number]) on 11/13/2015 2:01:02 PM MUSE SYSTEM 11/12/2015 10:3 5 PM EDT 11/13/2015 2:01 PM EDT Tal Eagle MD ECG ORDERABLES MUSE SYSTEM * XR Chest PA & Lateral (Generic) (11/12/2015 3:16 PM EDT) Anatomical Region Laterality Modality Chest N/A Digital Radiogra phy Impressions 11/12/2015 4:15 PM EDT IMPRESSION: No acute cardiopulmonary process. Tiny right pleural effusion I have personally reviewed the image(s) and the residents interpretation and agree with the findings, Preeti Holloway at 11/12/2015 4:15 PM Narrative 11/12/2015 4:15 PM EDT EXAMINATION: XR CHEST ROUTINE PA AND LATERAL CLINICAL HISTORY: Chest Pain TECHNIQUE: PA and lateral views of the chest. COMPARISON: None. FINDINGS: The lungs are clear. The cardiomediastinal silhouette, nelly, and pulmonary vasculature are within normal limits. No pneumothorax. Tiny right pleural effusion.No acute or suspicious osseous lesions. Procedure Note Preeti Holloway MD - 11/12/2015 EXAMINATION: XR CHEST ROUTINE PA AND LATERAL CLINICAL HISTORY: Chest Pain TECHNIQUE: PA and lateral views of the chest. COMPARISON: None. FINDINGS: The lungs are clear. The cardiomediastinal silhouette, nelly, andpulmonary vasculature are within normal limits. No pneumothorax. Tiny rightpleural effusion.No acute or suspicious osseous lesions. IMPRESSION IMPRESSION: No acute cardiopulmonary process. Tiny right pleural effusion I have personally reviewed the image(s) and the residents interpretationand agree with the findings, Preeti Holloway at 11/12/2015 4:15 PM Paola Colbert MD IMG DX ORDERABLES * (ABNORMAL) L-Lactate2 Whole Blood (11/12/2015 2:30 PM EDT) Lactate WB 2.4(H) mmol/L [facility] Comment: Reference Interval: Whole Blood Lactate: 0.5 to 2.2 mmol/L Blood specimen (specimen) 11/12/2015 2:30 PM EDT 11/12/2015 2:30 PM EDT Emergency Dept CHEMISTRY ORDERABLE S Performing Organization Address [facility]/ZIP Co de Phone Number [facility] [place] [address] * (ABNORMAL) Urine culture (11/12/2015 2:27 PM EDT) Urine Culture Greater than 100,000 cfu/ml Enterococcus species(A) [facility] Organism Enterococcus species(A) [facility] Urine specimen obtained by clean catch procedure (specimen) 11/12/2015 2:27 PM EDT 11/12/2015 3:14 PM EDT Narrative Resulting Agency Comment Spec In Lab Organism Antibiotic Method Susceptibility Enterococcus species Ampicillin MICROSCAN METHOD Sensitive Enterococcus species Ciprofloxacin MICROSCAN METHOD Sensitive Enterococcus species Daptomycin MICROSCAN METHOD 2: Sensitive Enterococcus species Gentamicin 500 MICROSCAN METHOD Sensitive Enterococcus species Levofloxacin MICROSCAN METHOD Sensitive Enterococcus species Nitrofurantoin MICROSCAN METHOD Sensitive Enterococcus species Penicillin MICROSCAN METHOD Sensitive Enterococcus species Streptomycin 1000 MICROSCAN METHO D Sensitive Enterococcus species Tetracycline MICROSCAN METHOD Resistant Enterococcus species Vancomycin MICROSCAN METHOD Sensitive Paola Colbert MD MICROBIOLOGY - GENE RAL ORDERABLES Performing Organization Address [facility]/ZIP Co de Phone Number [facility] [place] [address] * (ABNORMAL) Urinalysis with reflex Culture (11/12/2015 2:27 PM EDT) Glucose, Urine Dipstick 50(A) Negative mg/dL [facility] Protein, [...] [facility] pH, Urn (dipstick) 5.0 5.0 - 8.0 [facility] Blood, Urine Dipstick Moderate(A) Negative mg/dL [facility] Ketone, Urine Dipstick Negative Negative mg/dL [facility] Nitrite, Urine Dipstick Negative Negative [facility] Leukocytes, Urine Dipstick Small(A) Negative [facility] Appearance, Urine Dipstick Clear Clear [facility] Specific [place] Urine Automated 1.014 1.002 - 1.030 [facility] Color, Urine Dipstick Yellow Yellow [facility] RBC, Urine 3 0 - 3 /HPF [facility] WBC, Urine 20(H) 0 - 3 /HPF [facility] WBC Clumps, Urine Rare(A) None /HPF [facility] Bacteria, Urine Rare(A) None /HPF [facility] Reflex to Culture Yes [facility] Urine specimen obtained by clean catch procedure (specimen) 11/12/2015 2:27 PM EDT 11/12/2015 2:43 PM EDT Narrative Resulting Agency Comment Spec In Lab Paola Colbert MD URINE ORDERABLES Performing Organization Address City/State/[facility] Co de Phone Number [facility] [place] [address] * (ABNORMAL) Differential, Automated (11/12/2015 2:25 PM EDT) Neutrophil % 88.6 % [facility] Neutrophil Absolute 8.96(H) 1.50 - 6.30 x10(3)/mc L [facility] Lymph % 5.3 % [facility] Lymphocytes Abs 0.5(L) 1.0 - 3.6 x10(3)/mc L [facility] Monocyte % 5.1 % [facility] Monocyte Abs 0.5 0.2 - 1.0 x10(3)/mc L [facility] Eos % 0.2 % [facility] Eosinophils Abs 0.0 0.0 - 0.5 x10(3)/[facility] [place] [facility] Basophil % 0.3 % [facility] Baso Absolute 0.0 0.0 - 0.2 x10(3)/[facility] Immature Gran % 0.50 % [facility] Comment: Immature granulocytes(IG's)percentage and absolute count will include metamyelocytes, myelocytes, and promyelocytes. Blood smears from CBCs yielding IG's will be scanned manually for concordance. If this scan disagrees with the automated IG or if promyelocytes are noted, a manual differential will be performed. Immature Gran Absolute 0.05 0.00 - 0.05 x10(3)/[facility] [place] [facility] Blood specimen (specimen) 11/12/2015 2:25 PM EDT 11/12/2015 2:46 PM EDT Narrative Resulting Agency Comment Spec In Lab Paola Colbert MD HEMATOLOGY ORDERABL ES [facility] [place] [address] * (ABNORMAL) Hemogram (11/12/2015 2:25 PM EDT) White Blood Cell 10.1(H) 4.0 - 10.0 x10(3)/[facility] [place] [facility] Red Blood Cell 4.54(L) 4.63 - 6.08 x10(6)/[facility] Hemoglobin 14.5 13.7 - 17.5 gm/dL [facility] Hematocrit 41.3 40.0 - 51.0 % [facility] Mean Cell Volume 91.0 79.0 - 92.0 fL [facility] Mean Cell Hemoglobin 31.9 25.6 - 32.2 pg [facility] Mean Cell Hemoglobin Concentration 35.1 32.0 - 36.5 gm/dL [facility] Platelet 268 145 - 370 x10(3)/[facility] [place] [facility] RDW Standard Deviation 48.1(H) 35.0 - 46.0 fL [facility] RDW coefficient of variation 14.5(H) 10.9 - 14.4 % [facility] Mean Platelet Volume 9.6 9.0 - 12.0 fL [facility] Blood specimen (specimen) 11/12/2015 2:25 PM EDT 11/12/2015 2:46 PM EDT Narrative Resulting Agency Comment Spec In Lab Paola Colbert MD HEMATOLOGY ORDERABL ES Performing Organization Address [facility] Co de Phone Number [facility] [place] [address] * Blue Tube HOLD (11/12/2015 2:25 PM EDT) Blue Hold Sample in lab. [facility] Blood specimen (specimen) 11/12/2015 2:25 PM EDT 11/12/2015 2:46 PM EDT Paola Colbert MD HEMATOLOGY ORDERABL ES Performing Organization Address [facility] de Phone Number [facility] [place] [address] * (ABNORMAL) BMP w/fasting Glucose (11/12/2015 2:25 PM EDT) Glucose Fasting 202(H) 65 - 99 mg/dL [facility] Comment: ?Fasting* Glucose Interpretive [...] of Diabetes Mellitus, Position Statement from the [place] [employer]. ??Diabetes Care, Volume 33, Supplement 1, Jul 2009 Blood Urea Nitrogen 20 10 - 20 mg/dL [facility] Creatinine 2.02(H) 0.80 - 1.50 mg/dL [facility] Comment: Please note that the pediatric reference intervals supplied above were not validated at [facility]. Results from pediatric patients should be interpreted in conjunction to the patient's age, height and muscle mass. Sodium 137 135 - 145 mmol/L [facility] Potassium 4.0 3.5 - 5.0 mmol/L [facility] [...] LAB[facility]ATORY Est Glomerular Filtration Rate 33(L) >=60 [facility] Comment: This estimated GFR (eGFR) [...] the following links into your internet browser. [email or web address] [email or web address] Blood specimen (specimen) 11/12/2015 2:25 PM EDT 11/12/2015 2:46 PM EDT Narrative Resulting Agency Comment Spec In Lab Paola Colbert MD CHEMISTRY ORDERABLE S [facility] [place] [address] * (ABNORMAL) Blood culture (11/12/2015 2:25 PM EDT) Blood Culture Enterococcus faecalis isolated Susceptibilities previously reported (A) [facility] Gram Stain Aerobic Growth detected in aerobic bottle. Gram Positive Cocci in pairs seen (A) [facility] Gram Stain Anaerobic Growth detected in anaerobic bottle. Gram Positive Cocci in pairs seen (A) [facility] Organism Gram Positive Cocci in pairs(A) [facility] Blood specimen (specimen) STRUCTURE OF RIGHT FOREARM / Unknown 11/12/2015 2:25 PM EDT 11/12/2015 2:53 PM EDT Comment:#1 Narrative Resulting Agency Comment Spec In Lab Paola Colbert MD MICROBIOLOGY - BLOO D ORDERABLES Performing Organization Address [facility] Co de Phone Number [facility] [place] [address] * (ABNORMAL) Blood culture (11/12/2015 2:25 PM EDT) Blood Culture Enterococcus faecalis isolated Isolate saved. If future testing is required, contact the [facility] [facility]. (A) [facility] Gram Stain Bottle Growth detected in aerobic and anaerobic bottles. Gram Positive Cocci in pairs seen (A) [facility] Organism Enterococcus faecalis(A) [facility] Organism Gram Positive Cocci in pairs(A) [facility] Blood specimen (specimen) ANTECUBITAL REGION STRUCTURE / Unknown 11/12/2015 2:25 PM EDT 11/12/2015 2:53 PM EDT Comment:#2 Narrative Resulting Agency Comment Spec In Lab Organism Antibiotic Method Susceptibility Enterococcus faecalis Ampicillin MICROSCAN METHOD Sensitive Comment: Susceptibility implies high dose therapy. ??Penicillin or Ampicillin combined with an aminoglycoside is recommended for serious infections. Synergy is predicted for Gentamicin. Enterococcus faecalis Daptomycin MICROSCAN METHOD 2: Sensitive Enterococcus faecalis Erythromycin MICROSCAN METHOD Resistant Enterococcus faecalis Gentamicin 500 MICROSCAN METHOD Sensitive Comment: Susceptibility implies high dose therapy. ??Penicillin or Ampicillin combined with an aminoglycoside is recommended for serious infections. Synergy is predicted for Gentamicin. Enterococcus faecalis Penicillin MICROSCAN METHOD Sensitive Enterococcus faecalis Streptomycin 1000 MICROSCAN METH OD Sensitive Enterococcus faecalis Vancomycin MICROSCAN METHOD Sensitive Paola Colbert MD MICROBIOLOGY - BLOO D ORDERABLES [facility] [place] [address] documented in this encounter Visit Diagnoses Diagnosis Kidney transplant infection Complications of transplanted kidney Irregular heart rate Cardiac dysrhythmia, unspecified Bacteremia due to Enterococcus Bacteremia Kidney transplant infection Complications of transplanted kidney documented in this encounter Admitting Diagnoses Diagnosis Kidney transplant infection Complications of transplanted kidney documented in this encounter Administered Medications Inactive Administered Medications - up to 3 most recent administrations Medication Order MAR Action Action Date Dose Rate Site acetaminophen (TYLENOL) tablet 650 mg 650 mg, Oral, EVERY 4 HOURS PRN, Starting on Thu11/12/15 at 2237, Until Thu11/16/15 at 1934, Pain, Maximum dose of acetaminophen is 4000 mg from all sources in 24 hours., Routine Given 11/13/2015 8:20 PM EDT 650 mg Given 11/13/2015 12:18 PM EDT 650 mg Given 11/13/2015 5:55 AM EDT 650 mg ampicillin 2g vial attach to sodium chloride 0.9% 100 mL Mini-Bag Plus 2,000 mg (2 g), Intravenous, EVERY 6 HOURS SCHEDULED, First dose on Thu11/13/15 at 1800, Until Discontinued, Administer over 15 Minutes, Indication for (Active or Suspected): Urinary Tract/Pyelonephritis Given 11/14/2015 12:11 PM EDT 2,000 mg 400 mL/hr Given 11/14/2015 6:09 AM EDT 2,000 mg 400 mL/hr Given 11/14/2015 12:18 AM EDT 2,000 mg 400 mL/hr ampicillin 2g vial attach to sodium chloride 0.9% 100 mL Mini-Bag Plus 2,000 mg (2 g), Intravenous, EVERY 4 HOURS SCHEDULED, First dose (after last modification) on Thu11/14/15 at 1600, Until Discontinued, Administer over 15 Minutes, Indication for (Active or Suspected): Urinary Tract/Pyelonephritis Given 11/16/2015 1:25 PM EDT 2,000 mg 400 mL/hr Given 11/16/2015 9:55 AM EDT 2,000 mg 400 mL/hr Given 11/16/2015 4:24 AM EDT 2,000 mg 400 mL/hr calciTRIol (ROCALTROL) capsule 0.5 mcg 0.5 mcg, Oral, 2 TIMES DAILY, First dose on Thu11/15/15 at 0900, Until Discontinued, Routine Given 11/16/2015 10:29 AM EDT 0.5 mcg Given 11/15/2015 8:59 PM EDT 0.5 mcg Given 11/15/2015 10:41 AM EDT 0.5 mcg calcium carbonate (TUMS) chewable tablet 500 mg 500 mg, Oral, ONCE, 1 dose, On Thu11/14/15 at 2145, Routine Given 11/14/2015 9:23 PM EDT 500 mg calcium carbonate (TUMS) chewable tablet 500 mg 500 mg, Oral, DAILY PRN, Starting on Thu11/15/15 at 1738, Until Thu11/15/15 at 2034, Heartburn, Routine Given 11/15/2015 6:11 PM EDT 500 mg calcium carbonate (TUMS) chewable tablet 500 mg 500 mg, Oral, ONCE, 1 dose, On Thu11/15/15 at 2100, Routine Given 11/15/2015 8:42 PM EDT 500 mg cefTRIAXone (ROCEPHIN) 2g in dextrose 5% 50mL 2,000 mg (2 g), Intravenous, ONCE, 1 dose, On Thu11/12/15 at 1536, Administer over 30 Minutes, Indication for (Active or Suspected): Urinary Tract/Pyelonephritis Given 11/12/2015 3:48 PM EDT 2,000 mg 100 mL/hr ciprofloxacin (CIPRO) 400mg in dextrose 5% 200mL 400 mg, Intravenous, ONCE, 1 dose, On 11/12/15 at 1536, Administer over 60 Minutes, Indication for (Active or Suspected): Urinary Tract/Pyelonephritis, Restricted Antibiotic: Please indicate the most appropriate choice: Ordered from Emergency Department Given 11/12/2015 4:30 PM EDT 400 mg 200 m L/hr clopidogrel (PLAVIX) tablet 75 mg 75 mg, Oral, DAILY, First dose on Thu11/13/15 at 0900, Until Discontinued, Routine Given 11/16/2015 10:28 AM EDT 75 mg Given 11/15/2015 8:35 AM EDT 75 mg Given 11/14/2015 8:20 AM EDT 75 mg DAPTOmycin (CUBICIN) 570 mg in sodium chloride 0.9% 61.4 mL 570 mg (rounded from 571.2 mg = 6 mg/kg/dose ? 95.2 kg), Intravenous, at 122.8 mL/hr, EVERY 24 HOURS, First dose on Thu11/16/15 at 1500, Until Discontinued, STAT Given 11/16/2015 3:05 PM EDT 570 mg 122.8 mL/hr DILTiazem (DILTIAZEM CD) ER capsule 120 mg 120 mg, Oral, DAILY, First dose on Thu11/13/15 at 0900, Until Discontinued, DO NOT CRUSH OR OPEN, Routine Given 11/16/2015 10:32 AM EDT 120 mg Given 11/15/2015 8:36 AM EDT 120 mg Given 11/14/2015 8:20 AM EDT 120 mg heparin (porcine) subcutaneous injection 5,000 Units 5,000 Units, Subcutaneous, EVERY 8 HOURS SCHEDULED, First dose on Thu11/13/15 at 0600, Until Discontinued, Routine Given 11/16/2015 5:49 AM EDT 5,000 Unit s Given 11/15/2015 9:01 PM EDT 5,000 Units Given 11/15/2015 2:59 PM EDT 5,000 Units insulin aspart (NovoLOG) VIAL injection 1-4 Units 1-4 Units, Subcutaneous, EVERY 4 HOURS SCHEDULED, First dose on Thu11/13/15 at 0400, Until Discontinued, CORRECTION BOLUS Sensitive to insulin lean patient or total daily dose of all insulin needed to achieve glycemic control less than 30 units BG 140 - 160 Give 1 unit BG 161 - 200 Give 2 units BG 201 - 240 Give 3 units BG greater than 240, give 4 units and recheck BG in 2 hours. If BG remains greater than 240, repeat 4 units (no more than three times) & call for new basal insulin orders. If less than 240 after two hours, give no insulin and resume prior schedule. Given 11/16/2015 4:34 PM EDT 3 Units Given 11/16/2015 11:50 AM EDT 2 Units Given 11/16/2015 8:21 AM EDT 2 Units levothyroxine (SYNTHROID) tablet 75 mcg 75 mcg, Oral, DAILY, First dose on Thu11/13/15 at 0600, Until Discontinued, Routine Given 11/16/2015 5:49 AM EDT 75 mcg Given 11/15/2015 5:17 AM EDT 75 mcg Given 11/14/2015 6:10 AM EDT 75 mcg magnesium oxide (MAG-OX) tablet 400 mg 400 mg, Oral, 2 TIMES DAILY, First dose on Thu11/12/15 at 2100, Until Discontinued, Routine Given 11/14/2015 8:23 PM EDT 400 mg Given 11/14/2015 8:20 AM EDT 400 mg Given 11/13/2015 8:20 PM EDT 400 mg magnesium oxide (MAG-OX) tablet 800 mg 800 mg, Oral, 3 TIMES DAILY, First dose (after last modification) on Thu11/15/15 at 0900, Until Discontinued, Routine Given 11/16/2015 4:34 PM EDT 800 mg Given 11/16/2015 10:32 AM EDT 800 mg Given 11/15/2015 9:00 PM EDT 800 mg magnesium sulfate 2 g in sterile water 50 mL 2 g, Intravenous, ONCE, 1 dose, On Thu11/13/15 at 1100, Administer over 120 Minutes Given 11/13/2015 11:04 AM EDT 2 g 25 mL/hr mycophenolate (CELLCEPT) capsule 500 mg 500 mg, Oral, 2 TIMES DAILY, First dose on Thu11/12/15 at 2100, Until Discontinued, DO NOT CRUSH OR OPEN, Routine Given 11/16/2015 10:31 AM EDT 500 mg Given 11/15/2015 9:00 PM EDT 500 mg Given 11/15/2015 8:35 AM EDT 500 mg pantoprazole (PROTONIX) tablet 40 mg 40 mg, Oral, DAILY, First dose on Thu11/15/15 at 1800, Until Discontinued, DO NOT CRUSH OR OPEN Given 11/15/2015 6:11 PM EDT 40 mg pantoprazole (PROTONIX) tablet 40 mg 40 mg, Oral, 2 TIMES DAILY, First dose (after last modification) on Thu11/15/15 at 2100, Until Discontinued, DO NOT CRUSH OR OPEN Given 11/16/2015 10:3 3 AM EDT 40 mg Given 11/15/2015 8:42 PM EDT 40 mg piperacillin-tazobactam (ZOSYN) 3.375 g in dextrose 5% 50 mL 3.375 g, Intravenous, EVERY 8 HOURS, First dose on Thu11/12/15 at 1953, Until Discontinued, Administer over 4 Hours, Indication for (Active or Suspected): Bacteremia/Sepsis Given 11/13/2015 1:12 PM EDT 3.375 g 12.5 mL/hr Given 11/13/2015 3:52 AM EDT 3.375 g 12.5 mL/hr Given 11/12/2015 8:40 PM EDT 3.375 g 12.5 mL/hr polyethylene glycol (MIRALAX) packet 17 g 17 g, Oral, DAILY, First dose on Thu11/13/15 at 0900, Until Discontinued, Routine Given 11/14/2015 8:24 AM EDT 17 g potassium chloride (K-DUR/KLOR-CON) extended release tablet 40 mEq 40 mEq, Oral, 3 TIMES DAILY, First dose on Thu11/13/15 at 1000, Until Discontinued, 20 mEq tablet may be dissolved in water for administration, Routine Given 11/16/2015 4:35 PM EDT 40 mEq Given 11/16/2015 11:49 AM EDT 40 mEq Given 11/15/2015 8:58 PM EDT 40 mEq potassium phosphate (monobasic) (K-PHOS) tablet 1,000 mg 1,000 mg, Oral, 2 TIMES DAILY, First dose (after last modification) on Thu11/14/15 at 0900, Until Discontinued, Dissolve tablets in 6-8 oz of water; for best results, soak tablets in water for 2-5 minutes, then stir and give to patient., Routine Given 11/16/2015 1:27 PM EDT 1,000 mg Given 11/15/2015 9:00 PM EDT 1,000 mg Given 11/15/2015 9:36 AM EDT 1,000 mg potassium phosphate (monobasic) (K-PHOS) tablet 500 mg 500 mg, Oral, 2 TIMES DAILY, First dose on Thu11/12/15 at 2100, Until Discontinued, Dissolve tablets in 6-8 oz of water; for best results, soak tablets in water for 2-5 minutes, then stir and give to patient., Routine Given 11/13/2015 8:20 PM EDT 500 mg Given 11/13/2015 9:43 AM EDT 500 mg potassium phosphate (monobasic) (K-PHOS) tablet 500 mg 500 mg, Oral, ONCE, 1 dose, On Thu11/12/15 at 1953, Dissolve tablets in 6-8 oz of water; for best results, soak tablets in water for 2-5 minutes, then stir and give to patient., Routine Given 11/12/2015 10:19 PM EDT 500 mg potassium phosphate 15 mMol in sodium chloride 0.9% 250 mL 15 mmol, Intravenous, ONCE, 1 dose, On Thu11/13/15 at 1300, Administer over 4 Hours, Administer over 4-6 hours Given 11/13/2015 3:13 PM EDT 15 mmol 62.5 mL/hr sodium chloride 0.9 % flush 5 mL 5 mL, Intravenous, 2 TIMES DAILY, First dose on Thu11/13/15 at 0200, Until Discontinued, Routine Given 11/16/2015 10:33 AM EDT 5 mLs Given 11/15/2015 8:31 PM EDT 5 mLs Given 11/15/2015 9:36 AM EDT 5 mLs sodium chloride 0.9% 1,000 mL IV bolus at 4,000 mL/hr, Intravenous, ONCE, 1 dose, On Thu11/12/15 at 1445 Given 11/12/2015 2:48 PM EDT 4000 mL/hr sodium chloride 0.9% 1,000 mL IV bolus at 4,000 mL/hr, Intravenous, ONCE, 1 dose, On Thu11/12/15 at 1536 Given 11/12/2015 3:47 PM EDT 4000 mL/hr sodium chloride 0.9% infusion 75 mL/hr, Intravenous, CONTINUOUS, Starting on Thu11/13/15 at 0200, Until Laura 11/15/15 at 1318 New Bag 11/15/2015 12:23 AM EDT 75 mL/hr 75 mL/hr New Bag 11/14/2015 12:13 PM EDT 75 mL/hr 75 mL/hr New Bag 11/13/2015 3:00 AM EDT 75 mL/hr 75 mL/hr sulfamethoxazole-trimethoprim (BACTRIM;SEPTRA) 400-80 mg per tablet 1 tablet 1 tablet, Oral, DAILY, First dose on Thu11/13/15 at 0900, Until Discontinued, Routine, Indication for (Active or Suspected): Prophylaxis Given 11/16/2015 10:29 AM EDT 1 tablet Given 11/15/2015 9:35 AM EDT 1 tablet Given 11/14/2015 8:20 AM EDT 1 tablet tacrolimus (PROGRAF) capsule 2 mg 2 mg, Oral, NIGHTLY, First dose on Thu11/12/15 at 2200, Until Discontinued, Routine Given 11/15/2015 8:59 PM EDT 2 mg Given 11/14/2015 8:23 PM EDT 2 mg Given 11/13/2015 8:20 PM EDT 2 mg tacrolimus (PROGRAF) capsule 3 mg 3 mg, Oral, EVERY MORNING, First dose on Thu11/13/15 at 0900, Until Discontinued, Routine Given 11/16/2015 10:30 AM EDT 3 mg Given 11/15/2015 8:35 AM EDT 3 mg Given 11/14/2015 9:29 AM EDT 3 mg tamsulosin (FLOMAX) ER capsule 0.4 mg 0.4 mg, Oral, DAILY, First dose on Thu11/13/15 at 1000, Until Discontinued, DO NOT CRUSH OR OPEN, Routine Given 11/16/2015 10:30 AM EDT 0.4 mg Given 11/15/2015 9:36 AM EDT 0.4 mg Given 11/14/2015 8:20 AM EDT 0.4 mg valGANciclovir (VALCYTE) tablet 450 mg 450 mg, Oral, DAILY, First dose on Thu11/13/15 at 0900, Until Discontinued, Routine, Indication for (Active or Suspected): Prophylaxis Given 11/16/2015 10:29 AM EDT 450 mg Given 11/15/2015 9:36 AM EDT 450 mg Given 11/14/2015 8:20 AM EDT 450 mg vancomycin 2 g in sodium chloride 0.9% 500 mL 2,000 mg (2 g), Intravenous, ONCE, 1 dose, On Thu11/12/15 at 2006, Maximum infusion rate is 1 gram/hour. If flushing of the face, neck, upper body, arms, and/or back occurs decrease infusion rate by 50% to reduce the severity of symptoms. This medication may have an associated drug lab level. Please see MAR for scheduled level., Routine Given 11/13/2015 12:35 AM EDT 2,000 mg documented in this encounter Active and Recently Administered Medications Times are shown in EDT. Scheduled Medication Order 11/14/2015 11/15/2015 11/16/2015 ampicillin 2g vial attach to sodium chloride 0.9% 100 mL Mini-Bag Plus (CANCELED) 2,000 mg (2 g), Intravenous, EVERY 6 HOURS SCHEDULED, First dose on Thu11/13/15 at 1800, Until Discontinued, Administer over 15 Minutes, Indication for (Active or Suspected): Urinary Tract/Pyelonephritis 0018 (Given - Provider: Malina Edmonds, JADEN)0609 (Given - Provider: Malina Edmonds RN)1211 (Given - Provider: Ethel Benitez RN) ampicillin 2g vial attach to sodium chloride 0.9% 100 mL Mini-Bag Plus (CANCELED) 2,000 mg (2 g), Intravenous, EVERY 4 HOURS SCHEDULED, First dose (after last modification) on Thu11/14/15 at 1600, Until Discontinued, Administer over 15 Minutes, Indication for (Active or Suspected): Urinary Tract/Pyelonephritis 1634 (Given - Provider: Ethel Benitez RN)2025 (Given - Provider: Brenda Masterson RN) 0005 (Given - Provider: Brenda Masterson RN)0434 (Given - Provider: Brenda Masterson RN)0808 (Given - Provider: Keyana Hedrick RN)1202 (Given - Provider: Keyana Hedrick RN)1553 (Given - Provider: Keyana Hedrick RN)2031 (Given - Provider: Brenda Masterson RN)2354 (Given - Provider: Brenda Masterson RN) 0424 (Given - Provider: Brenda Masterson RN)0955 (Given - Provider: Angela Rendon RN)1325 (Given - Provider: Angela Rendon RN) calciTRIol (ROCALTROL) capsule 0.5 mcg (CANCELED) 0.5 mcg, Oral, 2 TIMES DAILY, First dose on Thu11/15/15 at 0900, Until Discontinued, Routine 1041 (Given - Provider: Keyana Hedrick RN)2058 (Given - Provider: Brenda Masterson RN) 1029 (Given - Provider: Angela Rendon, JADEN) calcium carbonate (TUMS) chewable tablet 500 mg (COMPLETED) 500 mg, Oral, ONCE, 1 dose, On Thu11/14/15 at 2145, Routine 2122 (Given - Provider: Brenda Masterson, JADEN) calcium carbonate (TUMS) chewable tablet 500 mg (COMPLETED) 500 mg, Oral, ONCE, 1 dose, On Thu11/15/15 at 2100, Routine 2041 (Given - Provider: Brenda Masterson RN) clopidogrel (PLAVIX) tablet 75 mg (CANCELED) 75 mg, Oral, DAILY, First dose on Thu11/13/15 at 0900, Until Discontinued, Routine 0820 (Given - Provider: Ethel Benitez RN) 0835 (Given - Provider: Keyana Hedrick RN) 1028 (Given - Provider: Angela Rendon RN) DAPTOmycin (CUBICIN) 570 mg in sodium chloride 0.9% 61.4 mL (CANCELED) 570 mg (rounded from 571.2 mg = 6 mg/kg/dose ? 95.2 kg), Intravenous, at 122.8 mL/hr, EVERY 24 HOURS, First dose on Thu11/16/15 at 1500, Until Discontinued, STAT 1505 (Given - Provider: Angela Rendon RN) DILTiazem (DILTIAZEM CD) ER capsule 120 mg (CANCELED) 120 mg, Oral, DAILY, First dose on Thu11/13/15 at 0900, Until Discontinued, DO NOT CRUSH OR OPEN, Routine 0820 (Given - Provider: Ethel Benitez RN) 0836 (Given - Provider: Keyana Hedrick RN) 1032 (Given - Provider: Angela Rendon RN) heparin (porcine) subcutaneous injection 5,000 Units (CANCELED) 5,000 Units, Subcutaneous, EVERY 8 HOURS SCHEDULED, First dose on Thu11/13/15 at 0600, Until Discontinued, Routine 0018 (Given - Provider: Malina Edmonds, JADEN)0610 (Given - Provider: Malina Edmonds, JADEN)1424 (Given - Provider: Ethel Benitez RN)2123 (Given - Provider: Brenda Masterson RN) 0517 (Given - Provider: Brenda Masterson, JADEN)1459 (Given - Provider: Keyana Hedrick RN)2101 (Given - Provider: Brenda Masterson RN) 0549 (Given - Provider: Brenda Masterson RN)1400 (Not Given - Provider: Angela Rendon, JADEN - Reason: Patient/family refused) insulin aspart (NovoLOG) VIAL injection 1-4 Units (CANCELED)(Linked Group 1) 1-4 Units, Subcutaneous, EVERY 4 HOURS SCHEDULED, First dose on Thu11/13/15 at 0400, Until Discontinued, CORRECTION BOLUS Sensitive to insulin lean patient or total daily dose of all insulin needed to achieve glycemic control less than 30 units BG 140 - 160 Give 1 unit BG 161 - 200 Give 2 units BG 201 - 240 Give 3 units BG greater than 240, give 4 units and recheck BG in 2 hours. If BG remains greater than 240, repeat 4 units (no more than three times) & call for new basal insulin orders. If less than 240 after two hours, give no insulin and resume prior schedule. 0018 (Given - Provider: Malina Edmonds RN)0429 (Given - Provider: Malina Edmonds RN)0800 (Given - Provider: Ethel Benitez RN)1211 (Not Given - Provider: Ethel Benitez RN - Reason: Order parameters not met)1717 (Given - Provider: Ethel Benitez RN)2026 (Given - Provider: Brenda Masterson RN) 0024 (Given - Provider: Brenda Masterson RN)0400 (Not Given - Provider: Brenda Masterson RN - Reason: Order parameters not met)0800 (Not Given - Provider: Keyana Hedrick RN - Reason: Order parameters not met)1203 (Given - Provider: Keyana Hedrick RN)1657 (Given - Provider: Bernarda Pedroza RN)2032 (Given - Provider: Brenda Masterson RN)2356 (Given - Provider: Brenda Masterson RN) 0400 (Not Given - Provider: Brenda Masterson RN - Reason: Order parameters not met)0821 (Given - Provider: Angela Rendon RN)1150 (Given - Provider: Angela Rendon, JADEN)1634 (Given - Provider: Angela Rendon RN) levothyroxine (SYNTHROID) tablet 75 mcg (CANCELED) 75 mcg, Oral, DAILY, First dose on Thu11/13/15 at 0600, Until Discontinued, Routine 0610 (Given - Provider: Malina Edmonds RN) 0517 (Given - Provider: Brenda Masterson RN) 0549 (Given - Provider: Brenda Masterson RN) magnesium oxide (MAG-OX) tablet 400 mg (CANCELED) 400 mg, Oral, 2 TIMES DAILY, First dose on Thu11/12/15 at 2100, Until Discontinued, Routine 0820 (Given - Provider: Ethel Benitez RN)2022 (Given - Provider: Brenda Masterson RN) magnesium oxide (MAG-OX) tablet 800 mg (CANCELED) 800 mg, Oral, 3 TIMES DAILY, First dose (after last modification) on Thu11/15/15 at 0900, Until Discontinued, Routine 0935 (Given - Provider: Ethel Benitez RN)1459 (Given - Provider: Keyana Hedrick, JADEN)2100 (Given - Provider: Brenda Masterson, JADEN) 1032 (Given - Provider: Angela Rendon RN)1634 (Given - Provider: Angela Rendon RN) mycophenolate (CELLCEPT) capsule 500 mg (CANCELED) 500 mg, Oral, 2 TIMES DAILY, First dose on Thu11/12/15 at 2100, Until Discontinued, DO NOT CRUSH OR OPEN, Routine 0820 (Given - Provider: Ethel Benitez RN)202 (Given - Provider: Brenda Masterson, JADEN) 0835 (Given - Provider: Keyana Hedrick, JADEN)2100 (Given - Provider: Brenda Masterson, JADEN) 1031 (Given - Provider: Angela Rendon, JADEN) pantoprazole (PROTONIX) tablet 40 mg (CANCELED) 40 mg, Oral, DAILY, First dose on Thu11/15/15 at 1800, Until Discontinued, DO NOT CRUSH OR OPEN 181 (Given - Provider: Keyana Hedrick RN) pantoprazole (PROTONIX) tablet 40 mg (CANCELED) 40 mg, Oral, 2 TIMES DAILY, First dose (after last modification) on Thu11/15/15 at 2100, Until Discontinued, DO NOT CRUSH OR OPEN 2041 (Given - Provider: Brenda Masterson RN) 1033 (Given - Provider: Angela Rendon, JADEN) polyethylene glycol (MIRALAX) packet 17 g (CANCELED) 17 g, Oral, DAILY, First dose on Thu11/13/15 at 0900, Until Discontinued, Routine 0824 (Given - Provider: Ethel Benitez RN) 0935 (Not Given - Provider: Ethel Benitez RN - Reason: Order parameters not met - Comment: pt w loose stools) 0900 (Not Given - Provider: Angela Rendon RN - Reason: Patient/family refused) potassium chloride (K-DUR/KLOR-CON) extended release tablet 40 mEq (CANCELED) 40 mEq, Oral, 3 TIMES DAILY, First dose on Thu11/13/15 at 1000, Until Discontinued, 20 mEq tablet may be dissolved in water for administration, Routine 0820 (Given - Provider: Ethel Benitez RN)1423 (Given - Provider: Ethel Benitez RN)2022 (Given - Provider: Brenda Masterson RN) 0936 (Given - Provider: Ethel Benitez RN)1459 (Given - Provider: Keyana Hedrick, JADEN)2057 (Given - Provider: Brenda Masterson RN) 1149 (Given - Provider: Angela Rendon RN)1635 (Given - Provider: Angela Rendon, JADEN) potassium phosphate (monobasic) (K-PHOS) tablet 1,000 mg (CANCELED) 1,000 mg, Oral, 2 TIMES DAILY, First dose (after last modification) on Thu11/14/15 at 0900, Until Discontinued, Dissolve tablets in 6-8 oz of water; for best results, soak tablets in water for 2-5 minutes, then stir and give to patient., Routine 0820 (Given - Provider: Ethel Benitez RN)2022 (Given - Provider: Brenda Masterson RN) 0936 (Given - Provider: Ethel Benitez RN)2099 (Given - Provider: Brenda Masterson RN) 103 (Not Given - Provider: Angela Rendon RN - Reason: See comment - Comment: has to be given two hours after magnesium)1327 (Given - Provider: Angela Rendon RN) sodium chloride 0.9 % flush 5 mL (CANCELED) 5 mL, Intravenous, 2 TIMES DAILY, First dose on Thu11/13/15 at 0200, Until Discontinued, Routine 08 (Given - Provider: Ethel Benitez RN)2023 (Given - Provider: Brenda Masterson RN) 0936 (Given - Provider: Ethel Benitez RN)2030 (Given - Provider: Brenda Masterson RN) 103 (Given - Provider: Angela Rendon RN) sulfamethoxazole-trimet hoprim (BACTRIM;SEPTRA) 400-80 mg per tablet 1 tablet (CANCELED) 1 tablet, Oral, DAILY, First dose on Thu11/13/15 at 0900, Until Discontinued, Routine, Indication for (Active or Suspected): Prophylaxis 0820 (Given - Provider: Ethel Benitez RN) 0935 (Given - Provider: Ethel Benitez RN) 102 (Given - Provider: Angela Rendon RN) tacrolimus (PROGRAF) capsule 2 mg (CANCELED) 2 mg, Oral, NIGHTLY, First dose on Thu11/12/15 at 2200, Until Discontinued, Routine 2022 (Given - Provider: Brenda Masterson RN) 2058 (Given - Provider: Brenda Masterson RN) tacrolimus (PROGRAF) capsule 3 mg (CANCELED) 3 mg, Oral, EVERY MORNING, First dose on Thu11/13/15 at 0900, Until Discontinued, Routine 09 (Given - Provider: Ethel Benitez RN) 0835 (Given - Provider: Keyana Hedrick RN) 103 (Given - Provider: Angela Rendon, JADEN) tamsulosin (FLOMAX) ER capsule 0.4 mg (CANCELED) 0.4 mg, Oral, DAILY, First dose on Thu11/13/15 at 1000, Until Discontinued, DO NOT CRUSH OR OPEN, Routine 0820 (Given - Provider: Ethel Bentiez RN) 0936 (Given - Provider: Ethel Benitez RN) 1030 (Given - Provider: Angela Rendon, JADEN) valGANciclovir (VALCYTE) tablet 450 mg (CANCELED) 450 mg, Oral, DAILY, First dose on Thu11/13/15 at 0900, Until Discontinued, Routine, Indication for (Active or Suspected): Prophylaxis 0820 (Given - Provider: Ethel Benitez RN) 0936 (Given - Provider: Ethel Benitez RN) 1029 (Given - Provider: Angela Rendon, JADEN) Continuous Medication Order 11/14/2015 11/15/2015 11/16/2015 sodium chloride 0.9% infusion (CANCELED) 75 mL/hr, Intravenous, CONTINUOUS, Starting on Thu11/13/15 at 0200, Until Thu11/15/15 at 1318 1213 (New Bag - Provider: Ethel Benitez RN) 0023 (New Bag - Provider: Brenda Masterson RN) PRN Medication Order 11/14/2015 11/15/2015 11/16/2015 calcium carbonate (TUMS) chewable tablet 500 mg (CANCELED) 500 mg, Oral, DAILY PRN, Starting on Thu11/15/15 at 1738, Until Thu11/15/15 at 2034, Heartburn, Routine 1811 (Given - Provider: Alessandra Hedrick, JADEN) Linked Groups Order Group 1: POCT Fingerstick Glucose (CANCELED) Routine, EVERY 4 HOURS, First occurrence on Thu11/13/15 at 0400, Until Specified, Consider choosing EVERY 4 HOURS as frequency for: - Type 1 Diabetes - At least 24 hours after coming off an insulin drip - At least 24 hours after admission for DKA - Hypoglycemia unawareness - Patients who are otherwise unstable Select the same frequency for the correction bolus insulin order And insulin aspart (NovoLOG) VIAL injection 1-4 Units (CANCELED)Jump to med 1-4 Units, Subcutaneous, EVERY 4 HOURS SCHEDULED, First dose on Thu11/13/15 at 0400, Until Discontinued, CORRECTION BOLUS Sensitive to insulin lean patient or total daily dose of all insulin needed to achieve glycemic control less than 30 units BG 140 - 160 Give 1 unit BG 161 - 200 Give 2 units BG 201 - 240 Give 3 units BG greater than 240, give 4 units and recheck BG in 2 hours. If BG remains greater than 240, repeat 4 units (no more than three times) & call for new basal insulin orders. If less than 240 after two hours, give no insulin and resume prior schedule. 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
--- OUTSIDE RECORDS SUMMARY | 2024-02-14 11:35 | XMS_ITS | Encounter Summary ---
Author Organization [facility] [place] [address] Care Team Providers Care Application Systems Architect Name Role Phone Urbano Denis DO Primary Care Provider Encounter Details Date Type Department Care Team (Latest Contact Info) Description 10/12/2015 9:00 AM EDT Laboratory Appointment Lab [address] [place] [id number] H/O kidney transplant; Kidney replaced by transplant Social History Tobacco [...] AM EDT Hospital Encounter Non-[place] [id number] Arrived documented as of this encounter Procedures Procedure Name Priority Date/Time Associated Diagnosis Comments BK QUANT URINE RESULT STAT 10/12/2015 9:50 AM EDT Kidney replaced by transplant BKV QUANT URINE STAT 10/12/2015 9:50 AM EDT Kidney replaced by transplant HEMOGRAM STAT 10/12/2015 9:45 AM EDT H/O kidney transplant DIFFERENTIAL, AUTOMATED STAT 10/12/2015 9:45 AM EDT H/O kidney transplant GOLD TUBE HOLD STAT 10/12/2015 9:45 AM EDT TACROLIMUS LEVEL STAT 10/12/2015 9:45 AM EDT H/O kidney transplant RETICULOCYTE COUNT STAT 10/12/2015 9: 45 AM EDT H/O kidney transplant CBC (WITH DIFF) STAT 10/12/2015 9:45 AM EDT H/O kidney transplant URIC ACID STAT 10/12/2015 9:45 AM EDT H/O kidney transplant PHOSPHORUS STAT 10/12/2015 9:45 AM EDT H/O kidney transplant MAGNESIUM STAT 10/12/2015 9:45 AM EDT H/O kidney transplant CHOLESTEROL, TOTAL STAT 10/12/2015 9: 45 AM EDT H/O kidney transplant COMPREHENSIVE METABOLIC PANEL STAT 10/12/2015 9:45 AM EDT H/O kidney transplant documented in this encounter Results * BK Quant Urine Result (10/12/2015 9:50 AM EDT) BKV Urine Result Not Detected [facility] BKV Urine Interp BK Virus Urine Result Interpretation Result: BK Virus Not Detected log concentration: Not detected Assay Range: urine: 2.83-8.83 log copies/mL (6.8x10^2 - 6.8x10^8 copies/mL ) Results are reported as log copies/mL. ??Changes of less than 1.0 log between serial samples may not be clinically significant. Methods: Quantitative real-time polymerase chain reaction (PCR) with of viral DNA isolated from urine was performed using [employer] BKV(ASR) reagents and the Applied ActionIQ 7500 Fast Real-Time PCR System. In addition, the PCR product sequence is confirmed using physical properties (melt curve analysis). This test was developed and its performance determined by the [facility]. It has not been cleared or approved by the U.S. Food and Drug Administration. This test is used for clinical purposes and should not be considered investigational or for research purposes. The Molecular Pathology Laboratory is certified by the Clinical Laboratory Improvement Act of 1988 and as such is allowed to perform high complexity clinical testing. [facility] Comment: [VERIFIED DATE]10.18.15 Verified By:Xiomy Gupta (Electronic Signature) Urine specimen (specimen) 10/12/2015 9:50 AM EDT 10/12/2015 10:41 AM EDT Narrative Resulting Agency Comment Spec In Lab Que Amaro MD HEMATOLOGY ORD ERABLES Performing Organization Address City/[facility]/ZIP Co de Phone Number [facility] [place] [address] * Gold Tube HOLD (10/12/2015 9:45 AM EDT) Gold Hold Sample in lab. [facility] Blood specimen (specimen) Venous Draw / Unknown 10/12/2015 9:45 AM EDT 10/12/2015 10:09 AM EDT Que Amaro MD CHEMISTRY ORDE RABLENORE Performing Organization Address City/[facility]/ZIP Co de Phone Number [facility] [place] [address] * Differential, Automated (10/12/2015 9:45 AM EDT) Neutrophil % 61.7 % [facility] Neutrophil Absolute 4.69 1.50 - 6.30 x10(3)/[facility] Lymph % 29.2 % [facility] Lymphocytes Abs 2.2 1.0 - 3.6 x10(3)/[facility] Monocyte % 3.7 % [facility] Monocyte Abs 0.3 0.2 - 1.0 x10(3)/[facility] Eos % 3.8 % [facility] Eosinophils Abs 0.3 0.0 - 0.5 x10(3)/[facility] Basophil % 1.2 % [facility] Baso Absolute 0.1 0.0 - 0.2 x10(3)/[facility] Immature Gran % 0.40 % [facility] Comment: Immature granulocytes(IG's)percentage and absolute count will include metamyelocytes, myelocytes, and promyelocytes. Blood smears from CBCs yielding IG's will be scanned manually for concordance. If this scan disagrees with the automated IG or if promyelocytes are noted, a manual differential will be performed. Immature Gran Absolute 0.03 0.00 - 0.05 x10(3)/[facility] Blood specimen (specimen) 10/12/2015 9:45 AM EDT 10/12/2015 9:57 AM EDT Narrative Resulting Agency Comment Spec In Lab Que Amaro MD HEMATOLOGY ORD ERABLES [facility] [place] [address] * (ABNORMAL) Hemogram (10/12/2015 9:45 AM EDT) White Blood Cell 7.6 4.0 - 10.0 x10(3)/mc L [facility] Red Blood Cell 4.08(L) 4.63 - 6.08 x10(6)/mc L [facility] Hemoglobin 13.0(L) 13.7 - 17.5 gm/dL [facility] Hematocrit 37.7(L) 40.0 - 51.0 % [facility] Mean Cell Volume 92.4(H) 79.0 - 92.0 fL [facility] Mean Cell Hemoglobin 31.9 25.6 - 32.2 pg [facility] Mean Cell Hemoglobin Concentration 34.5 32.0 - 36.5 gm/dL [facility] Platelet 251 145 - 370 x10(3)/mc L [facility] RDW Standard Deviation 52.6(H) 35.0 - 46.0 fL [facility] RDW coefficient of variation 15.7(H) 10.9 - 14.4 % [facility] Mean Platelet Volume 9.1 9.0 - 12.0 fL [facility] Blood specimen (specimen) 10/12/2015 9:45 AM EDT 10/12/2015 9:57 AM EDT Narrative Resulting Agency Comment Spec In Lab Que Amaro MD HEMATOLOGY ORD ERABLES [facility] [place] [address] * (ABNORMAL) Comprehensive metabolic panel (non-fasting) (10/12/2015 9:45 AM EDT) Glucose 134 65 - 199 mg/dL [facility] Comment:Diabetes: >=200 mg/d L plus symptoms Blood Urea Nitrogen 19 10 - 20 mg/dL [facility] Creatinine 1.47 0.80 - 1.50 mg/dL [facility] Comment: Please note that the pediatric reference intervals supplied above were not validated at [facility]. Results from pediatric patients should be interpreted in conjunction to the patient's age, height and muscle mass. Sodium 137 135 - 145 mmol/L [facility] Anion Gap 13 5 - 15 mmol/L [facility] Calcium 9.3 8.5 - 10.5 mg/dL [facility] Protein, Total 7.0 6.1 - 8.0 gm/dL [facility] Albumin 3.9 3.2 - 5.2 gm/dL [facility] Aspartate Aminotransferase 18 0 - 39 unit/L [facility] Alanine Aminotransferase 27 0 - 55 unit/L [facility] Alkaline Phosphatase 92 40 - 120 unit/L [facility] Bilirubin, Total 0.8 0.2 - 1.3 mg/dL [facility] Bilirubin, Direct 0.1 0.0 - 0.3 mg/dL [facility] Est Glomerular Filtration Rate 48(L) >=60 [facility] Comment: This estimated GFR (eGFR) [...] the following links into your internet browser. [email or web address]/DHnkdep [email or web address]://[employer]/DHMCnkf Blood specimen (specimen) 10/12/2015 9:45 AM EDT 10/12/2015 9:57 AM EDT Narrative Resulting Agency Comment Spec In Lab Que Amaro MD CHEMISTRY ROCHELLE JENNINGS [facility] [place] [address] * Tacrolimus level (10/12/2015 9:45 AM EDT) Tacrolimus 5.9 ng/mL [facility] Comment:Trough therapeutic: 5-15 ng/mL Blood specimen (specimen) 10/12/2015 9:45 AM EDT 10/12/2015 11:13 AM EDT Narrative Resulting Agency Comment Spec In Lab Que Amaro MD CHEMISTRY ROCHELLE JENNINGS Performing Organization Address [facility] Co de Phone Number [facility] [place] [address] * (ABNORMAL) Reticulocyte Count (10/12/2015 9:45 AM EDT) Reticulocyte % 3.1(H) 0.5 - 2.4 % [facility] Retic Abs # 0.130(H) 0.027 - 0.095 x10(6)/mc L [facility] Immature Retic% 15.1 2.3 - 15.9 % [facility] Reticulated Hgb 34.9 28.5 - 38.9 pg [facility] Immature Plt % 1.0 0.0 - 7.4 % [facility] Blood specimen (specimen) 10/12/2015 9:45 AM EDT 10/12/2015 9:57 AM EDT Narrative Resulting Agency Comment Spec In Lab Que Amaro MD HEMATOLOGY ORD ERABLES Performing Organization Address [facility] Co de Phone Number [facility] [place] [address] * Uric acid (10/12/2015 9:45 AM EDT) Pathologist [facility] Uric Acid 6.3 3.5 - 8.5 mg/dL [facility] Blood specimen (specimen) 10/12/2015 9:45 AM EDT 10/12/2015 9:57 AM EDT Narrative Resulting Agency Comment Spec In Lab Que Amaro MD CHEMISTRY ORDBhargav JENNINGS Performing Organization Address [facility] Co de Phone Number [facility] [place] [address] * (ABNORMAL) Phosphorus (10/12/2015 9:45 AM EDT) Phosphorus 2.4(L) 2.5 - 4.5 mg/dL [facility] Blood specimen (specimen) 10/12/2015 9:45 AM EDT 10/12/2015 9:57 AM EDT Narrative Resulting Agency Comment Spec In Lab Que Amaro MD CHEMISTRY ROCHELLE JENNINGS Performing Organization Address [facility] Co de Phone Number [facility] [place] [address] * (ABNORMAL) Magnesium (10/12/2015 9:45 AM EDT) Magnesium 0.54(L) 0.69 - 1.07 mmol/L [facility] Blood specimen (specimen) 10/12/2015 9:45 AM EDT 10/12/2015 9:57 AM EDT Narrative Resulting Agency Comment Spec In Lab Que Amaro MD CHEMISTRY ROCHELLE JENNINGS Performing Organization Address [facility] Co de Phone Number [facility] [place] [address] * (ABNORMAL) Cholesterol, total (10/12/2015 9:45 AM EDT) Cholesterol, Total 211(H) <=199 mg/dL [facility] Comment: Recommendations of the NCEP Adult Treatment Panel for the following risk cutoff thresholds for the [place] population: Desirable: <200 mg/dL Borderline High: 200-239 mg/dL High: > or = 240 mg/dL Blood specimen (specimen) 10/12/2015 9:45 AM EDT 10/12/2015 9:57 AM EDT Narrative Resulting Agency Comment Spec In Lab Que JENNINGS Performing Organization Address [facility] Co de Phone Number [facility] [place] [address] documented in this encounter Visit Diagnoses Diagnosis H/O kidney transplant Kidney replaced by transplant Kidney replaced by transplant documented in this encounter Care Teams Application Systems Architect Relationship Specialty Start Date End Date Adeel, Urbano, DO [address] [place] [address] PCP - General 09/03/12 03/17/22 Ruchi Valles RN Nurse Clinic Transplant Surgery 07/30/15 documented as of this encounter
--- OUTSIDE RECORDS SUMMARY | 2024-02-14 11:35 | XMS_ITS | Encounter Summary ---
Author Organization [facility] Address [place] [address] Care Team Providers Care Coin Dealer Name Role Phone Adeel Urbano KIRBY Primary Care Provider [phone] Reason for Visit * Reason Comments Kidney Transplant Kidney Transplant Follow-up Immunotherapy Encounter Details Date Type Department Care Team (Latest Contact Info) Description 11/08/2015 10:00 AM EDT Office [place] [address] Tal Eagle MD [facility] [place] [address] Kidney replaced by transplant; Aftercare following organ [...] Sign Reading Time Taken Comments Blood Pressure 126/83 11/08/2015 9:45 AM EDT Pulse 70 11/08/2015 9:45 AM EDT Temperature - - Respiratory Rate 16 11/08/2015 9:45 AM EDT Oxygen Saturation 97% 11/08/2015 9:45 AM EDT Inhaled Oxygen Concentration - - Weight 100.2 kg (220 lb 12.8 oz) 11/08/2015 9:45 AM EDT Height 177.8 cm (5' 10) 11/08/2015 9:45 AM EDT Body Mass Index 31.68 11/08/2015 9:45 AM EDT documented in this encounter Progress Notes * Arabella Herlinda T, RD - 11/08/2015 3:13 PM EDT [facility] Post Transplant Nutrition Follow Up Date: 11/08/2015 Patient: Ethel Akins Transplant Date: 09/16/15 [place] organ UNOS diagnosis: Transplant: Mr. Ethel Akins is a White Not nor 65 y.o. male who is Status Post Kidney transplantation on 09/16/15. Patient was seen by Nutrition services on 11/08/2015 for follow up. Wt Readings from Last 3 Encounters: 11/08/15 100.154 kg (220 lb 12.8 oz) 10/26/15 100.064 kg (220 lb 9.6 oz) 10/12/15 99.973 kg (220 lb 6.4 oz) Today's vital signs: BP 126/83 mmHg Pulse 70 Resp 16 Ht 177.8 cm (5' 10) Wt 100.154 kg (220 lb 12.8 oz) BMI 31.68 kg/m2 SpO2 97% Estimated body mass index is 31.68 kg/(m^2) as calculated from the following: Height as of this encounter: 177.8 cm (5' 10). Weight as of this encounter: 100.154 kg (220 lb 12.8 oz). Weight pre-Txp: 100.7 Kg (222 lbs) BMI: 31.9 Lab Results Component Value Date HGB 14.0 11/08/2015 HCT 41.1 11/08/2015 NA 141 11/08/2015 K 4.4 11/08/2015 BUN 23* 11/08/2015 CREATININE 1.89* 11/08/2015 GLUCOSE 162 11/08/2015 CALCIUM 9.1 11/08/2015 MAGNESIUM 0.69 11/08/2015 PHOS 2.7 11/08/2015 ALBUMIN 4.2 11/08/2015 Cholesterol (in eD-H the component name CHLPL=Cholesterol) Lab Results Component Value Date CHLPL 187 11/08/2015 Assessment: This feature writer provided patient with a copy of his post-transplant nutrition lab report and reviewed with him. Serum creatinine with sudden rise: 1.49->1.89; Patient appears mildly dehydrated today(elevated uric acid level of 9.8); it could also be mild Prograf toxicity with a level of 12.7. MD to evaluate and adjust immunosuppressant dosing prn. Plan: Follow up next clinic visit and prn. * Tal Eagle MD - 11/08/2015 2:19 PM EDT [facility] Transplant Nephrology Follow Up Date: 11/08/15 Patient: Ethel Akins Transplant Date: 09/16/15 Transplant organ/Indication: Kidney / DM, HTN History of Present Illness: Mr. Akins is a 65 yr old gentleman w/ hx of DM, HTN who is s/p donor kidney transplant 09/16/15. Patient presents to transplant clinic for 2 months f/u. 0% PRA. Patient given Basliximab for induction. EBV +/+, CMV +/+ Interim Hx: Patient had urological stent removed. Denies shortness of breath, lower edema. Drinks 2L fluids/day. BP 140's at home. Scheduled for Hep C treatment January 03. [...] for diabetics, every 5 for non diabetics [place] kidney ultrasound looking for renal cell CA, [...] systems were neither positive or negative. Medications: Prior to Admission medications Medication Sig Start Date End Date Taking? Authorizing Provider mycophenolate (CELLCEPT) 250 mg Capsule Take 2 capsules by mouth 2 times daily. Kidney replaced by transplant 09/16/2015. Z94.0 11/08/15 11/07/16 Tal Eagle MD valGANciclovir (VALCYTE) 450 mg Tablet Take 1 tablet by mouth daily for 183 days. 11/08/15 05/09/16 Tal Eagle MD potassium phosphate, monobasic, (K-PHOS ORIGINAL) 500 mg Tablet, Soluble Take 1 tablet by mouth 2 times daily. 11/08/15 11/07/16 Tal Eagle MD tacrolimus (PROGRAF) 1 mg Capsule Take 1 mg by mouth 2 times daily. 3 mg in the AM 2 mg in the PM PROVIDER, HISTORICAL sulfamethoxazole-trimethoprim (BACTRIM;SEPTRA) 400-80 mg Tablet [...] / ADRs: No Known Allergies PHYSICAL EXAM: Filed Vitals: 11/08/15 0945 BP: 126/83 Pulse: 70 Resp: 16 Gen - AAO x 3 in NAD [...] for ETHEL AKINS ( ) as of 11/08/2015 14:23 Ref. Range 11/08/2015 08:49 WBC Latest Ref Range: 4.0-10.0 x10(3)/mcL 8.0 RBC Latest Ref Range: 4.63-6.08 x10(6)/mcL 4.42 (L) Hemoglobin Latest Ref Range: 13.7-17.5 gm/dL 14.0 Hematocrit Latest Ref Range: 40.0-51.0 % 41.1 MCV Latest Ref Range: 79.0-92.0 fL 93.0 (H) MCH Latest Ref Range: 25.6-32.2 pg 31.7 MCHC Latest Ref Range: 32.0-36.5 gm/dL 34.1 RDWSD Latest Ref Range: 35.0-46.0 fL 50.8 (H) RDWCV Latest Ref Range: 10.9-14.4 % 14.9 (H) Platelets Latest Ref Range: 145-370 x10(3)/mcL 279 MPV Latest Ref Range: 9.0-12.0 fL 9.3 Plat Immature % Latest Ref Range: 0.0-7.4 % 1.[address] % Latest Ref Range: 0.5-2.4 % 1.[address] Abs Latest Ref Range: 0.027-0.095 x10(6)/mcL 0.080 Immature Retic% Latest Ref Range: 2.3-15.9 % 8.8 Reticulated Hgb Latest Ref Range: 28.5-38.9 pg 33.8 Neutr Abs (ANC) Latest Ref Range: 1.50-6.30 x10(3)/mcL 5.70 Neutrophils % Latest Units: % 70.9 Immature Gran % Latest Units: % 0.50 Lymphocytes % Latest Units: % 18.7 Monocytes % Latest Units: % 5.6 Eosinophils % Latest Units: % 2.9 Basophils % Latest Units: % 1.4 Ayesha Gran Abs Latest Ref Range: 0.00-0.05 x10(3)/mcL 0.04 Lymphocytes Abs Latest Ref Range: 1.0-3.6 x10(3)/mcL 1.5 Monocyte Abs Latest Ref Range: 0.2-1.0 x10(3)/mcL 0.4 Eosinophils Abs Latest Ref Range: 0.0-0.5 x10(3)/mcL 0.2 Basophils Abs Latest Ref Range: 0.0-0.2 x10(3)/mcL 0.1 Sodium Latest Ref Range: 135-145 mmol/L 141 Potassium Latest Ref Range: 3.5-5.0 mmol/L 4.4 Chloride Latest Ref Range: 98-107 mmol/L 104 CO2 Latest Ref Range: 22-31 mmol/L 23 Anion Gap Latest Ref Range: 5-15 mmol/L 14 BUN Latest Ref Range: 10-20 mg/dL 23 (H) Creatinine Latest Ref Range: 0.80-1.50 mg/dL 1.89 (H) Estimated GFR Latest Ref Range: >=60 36 (L) Glucose Lvl Latest Ref Range: 65-199 mg/dL 162 Calcium Latest Ref Range: 8.5-10.5 mg/dL 9.1 Magnesium Latest Ref Range: 0.69-1.07 mmol/L 0.69 Phosphorus Latest Ref Range: 2.5-4.5 mg/dL 2.7 Uric Acid Latest Ref Range: 3.5-8.5 mg/dL 9.8 (H) Total Protein Latest Ref Range: 6.1-8.0 gm/dL 7.2 Albumin Latest Ref Range: 3.2-5.2 gm/dL 4.2 Total Bilirubin Latest Ref Range: 0.2-1.3 mg/dL 0.7 Bili, Direct Latest Ref Range: 0.0-0.3 mg/dL <0.1 Alk Phos Latest Ref Range: 40-120 unit/L 83 AST Latest Ref Range: 0-39 unit/L 22 ALT Latest Ref Range: 0-55 unit/L 25 Chol, Total Latest Ref Range: <=199 mg/dL 187 Tacrolimus Lvl Latest Units: ng/mL 12.7 Impression/ Plan: Mr. Akins is a 65 yr old gentleman w/ hx of kidney transplant who presents to transplant clinic for f/u. Transplant Status -s/p donor kidney transplant 09/16/15 (DM, HTN) -Creat worsened 1.89mg/dL (1.49 previously). Dehydrated. Instructed to drink more fluid goal x>3L fluids/day. - donor's weight x>200lbs -Uric acid 9.8. Immunosuppression -Decrease Cellcept to 500mg BID -Continue Prograf 3mg/2mg PO4/Mg -Phos 2.7. Decrease Kphos 500mg BID -Mag 0.69. Hypertension BP 120's. Off antihypertensives now Infectious prophylaxis -Decrease Valcyte to 450mg QDAY -Bactrim 1 tablet QDAY Follow up: RTC 1 month Seen and Discussed w/ Dr. Shagufta Wagner, DO Nephrology Fellow Pager #[phone] I reviewed all of the above findings and assessment of Dr. Wagner, examined the patient and formulated the recommendations which accurately reflect mine. documented in this encounter Plan of Treatment Upcoming Encounters Date Type Department Care Team (Late st Contact Info) Description 04/15/2024 10:00 AM EDT Hospital Encounter Non[place] [address] Arrived documented as of this encounter Results * Protein/Creatinine Ratio, urine (11/08/2015 8:55 AM EDT) Creatinine, Urine 112 mg/dL [facility] Protein, Urine 8 0 - 12 mg/dL [facility] Protein / Creatinine Ratio, Urine <0.1 ratio [facility] Urine specimen (specimen) 11/08/2015 8:55 AM EDT 11/08/2015 9:03 AM EDT Narrative Resulting Agency Comment Spec In Lab Tal Eagle MD URINE ORDERABLES [facility] [place] [address] * (ABNORMAL) Urinalysis with reflex Culture (11/08/2015 8:55 AM EDT) Glucose, Urine Dipstick Negative Negative mg/dL [facility] Protein, Urine Dipstick Negative Negative mg/dL [facility] Bilirubin, Urine Dipstick Negative Negative mg/dL [facility] Comment: Clinical correlation required for positive Urine Bilirubin results as false positive may occur with some drugs and drug related products. If a false positive is suspected a serum total bilirubin should be considered if clinically indicated. Urobilinogen, Urine Dipstick Normal Normal mg/dL [facility] pH, Urn (dipstick) 5.0 5.0 - 8.0 [facility] Blood, Urine Dipstick Negative Negative mg/dL [facility] Ketone, Urine Dipstick Negative Negative mg/dL [facility] Nitrite, Urine Dipstick Negative Negative [facility] Leukocytes, Urine Dipstick Trace(A) Negative [facility] Appearance, Urine Dipstick Clear Clear [facility] Specific [place] Urine Automated 1.016 1.002 - 1.030 [facility] Color, Urine Dipstick Yellow Yellow [facility] RBC, Urine 1 0 - 3 /HPF [facility] WBC, Urine 17(H) 0 - 3 /HPF [facility] Reflex to Culture Yes [facility] Urine specimen (specimen) 11/08/2015 8:55 AM EDT 11/08/2015 9:03 AM EDT Narrative Resulting Agency Comment Spec In Lab Tal Eagle MD URINE ORDERABLES [facility] [place] [address] * (ABNORMAL) Comprehensive metabolic panel (non-fasting) (11/08/2015 8:49 AM EDT) Glucose 162 65 - 199 mg/dL [facility] Comment:Diabetes: >=200 mg/d L plus symptoms Blood Urea Nitrogen 23(H) 10 - 20 mg/dL [facility] Creatinine 1.89(H) 0.80 - 1.50 mg/dL [facility] Comment: Please note that the pediatric reference intervals supplied above were not validated at [facility]. Results from pediatric patients should be interpreted in conjunction to the patient's age, height and muscle mass. Sodium 141 135 - 145 mmol/L [facility] Potassium 4.4 3.5 - 5.0 mmol/L [facility] Comment: Please note: ??Patients with WBC >100,000 may have falsely elevated Potassium levels. ??For accurate Potassium quantification in these patients send serum separator tube (gold top) for subsequent determinations. ??Contact the Clinical Chemistry Laboratory if there are any questions. Chloride 104 98 - 107 mmol/L [facility] Carbon Dioxide 23 22 - 31 mmol/L [facility] Anion Gap 14 5 - 15 mmol/L [facility] Calcium 9.1 8.5 - 10.5 mg/dL [facility] Protein, Total 7.2 6.1 - 8.0 gm/dL [facility] Albumin 4.2 3.2 - 5.2 gm/dL [facility] Aspartate Aminotransferase 22 0 - 39 unit/L [facility] Alanine Aminotransferase 25 0 - 55 unit/L [facility] Alkaline Phosphatase 83 40 - 120 unit/L [facility] Bilirubin, Total 0.7 0.2 - 1.3 mg/dL [facility] Bilirubin, Direct <0.1 0.0 - 0.3 mg/dL [facility] Est Glomerular Filtration Rate 36(L) >=60 [facility] Comment: This [...] the following links into your internet browser. [email or web address] Blood specimen (specimen) 11/08/2015 8:49 AM EDT 11/08/2015 8:53 AM EDT Narrative Resulting Agency Comment Spec In Lab Tal Eagle MD CHEMISTRY ORDERAB LES Performing Organization Address City/[facility]/ZIP Co de Phone Number [facility] [place] [address] * Magnesium (11/08/2015 8:49 AM EDT) Magnesium 0.69 0.69 - 1.07 mmol/L [facility] Blood specimen (specimen) 11/08/2015 8:49 AM EDT 11/08/2015 8:53 AM EDT Narrative Resulting Agency Comment Spec In Lab Tal Eagle MD CHEMISTRY ORDERAB LES Performing Organization Address [facility] Co de Phone Number [facility] [place] [address] * Phosphorus (11/08/2015 8:49 AM EDT) Phosphorus 2.7 2.5 - 4.5 mg/dL [facility] Blood specimen (specimen) 11/08/2015 8:49 AM EDT 11/08/2015 8:53 AM EDT Narrative Resulting Agency Comment Spec In Lab Tal Eagle MD CHEMISTRY ORDERAB LES Performing Organization Address City/[facility]/ZIP Co de Phone Number [facility] [place] [address] * (ABNORMAL) Uric acid (11/08/2015 8:49 AM EDT) Uric Acid 9.8(H) 3.5 - 8.5 mg/dL [facility] Blood specimen (specimen) 11/08/2015 8:49 AM EDT 11/08/2015 8:53 AM EDT Narrative Resulting Agency Comment Spec In Lab Tal Eagle MD CHEMISTRY ORDERAB LES Performing Organization Address [facility] Co de Phone Number [facility] [place] [address] * Tacrolimus level (11/08/2015 8:49 AM EDT) Pathologist [facility] Tacrolimus 12.7 ng/mL [facility] Comment:Trough therapeutic: 5-15 ng/mL Blood specimen (specimen) 11/08/2015 8:49 AM EDT 11/08/2015 11:06 AM EDT Narrative Resulting Agency Comment Spec In Lab Tal Eagle MD CHEMISTRY ORDERAB LES Performing Organization Address [facility] Co de Phone Number [facility] [place] [address] * Reticulocyte Count (11/08/2015 8:49 AM EDT) Pathologist [facility] Reticulocyte % 1.8 0.5 - 2.4 % [facility] Retic Abs # 0.080 0.027 - 0.095 x10(6)/mcL [facility] Immature Retic% 8.8 2.3 - 15.9 % [facility] Reticulated Hgb 33.8 28.5 - 38.9 pg [facility] Immature Plt % 1.5 0.0 - 7.4 % [facility] Blood specimen (specimen) 11/08/2015 8:49 AM EDT 11/08/2015 8:53 AM EDT Narrative Resulting Agency Comment Spec In Lab Tal Eagle MD HEMATOLOGY ORDERA BLES Performing Organization Address [facility]/ZIP Co de Phone Number [facility] [place] [address] * Cholesterol, total (11/08/2015 8:49 AM EDT) Cholesterol, Total 187 <=199 mg/dL [facility] Comment: Recommendations of the NCEP Adult Treatment Panel for the following risk cutoff thresholds for the [place] population: Desirable: <200 mg/dL Borderline High: 200-239 mg/dL High: > or = 240 mg/dL Blood specimen (specimen) 11/08/2015 8:49 AM EDT 11/08/2015 8:53 AM EDT Narrative Resulting Agency Comment Spec In Lab Tal Eagle MD CHEMISTRY ORDERAB LES [facility] [place] [address] documented in this encounter Visit Diagnoses Diagnosis Kidney replaced by transplant Aftercare following organ transplant Prophylactic immunotherapy Need for prophylactic immunotherapy documented in this encounter Care Teams Coin Dealer Relationship Specialty Start Date End Date Urbano Denis DO [address] [place] [address] PCP - General 09/03/12 03/17/22 Ruchi Valles RN Nurse Clinic Transplant Surgery 07/30/15 documented as of this encounter
--- OUTSIDE RECORDS SUMMARY | 2024-02-14 11:35 | XMS_ITS | Encounter Summary ---
Author Organization [facility] [place] [address] Care Team Providers Care Powder Blender Name Role Phone Urbano Denis DO Primary Care Provider Encounter Details Date Type Department Care Team (Late st Contact Info) Description 11/12/2015 Telephone [place] [phone] Samia Escalante, RN Social History Tobacco Use [...] Telephone Encounter - Samia Escalante, RN - 11/12/2015 9:34 AM EDT Prograf Dose Adjustment Patient: Cody Gomez Yuan Date of Lab Test: 11/09/2015 Prograf Level: 13.2ng/mL Previous Prograf Dose: 3mg AM/2mg PM New Prograf Dose: 2mg BID Spoke with Cody Patricia Yuan to relay information about Prograf level and need to adjust dosing. Ptis aware of the result and repeated back adjustment in dosing. Pt is aware of the need for a repeatblood draw in one week's time and has proper orders to have this done. Pt understands plan of care. No additional questions or concerns. Samia Escalante, RN [facility] Solid Organ Transplant [phone] (Pager: [phone]) documented in this encounter Plan of Treatment Upcoming Encounters Date Type Department Care Team (Late st Contact Info) Description 04/15/2024 10:00 AM EDT Hospital Encounter Non-[place] [address] Arrived documented as of this encounter Visit Diagnoses Not on filedocumented in this encounter Care Teams Powder Blender Relationship Specialty Start Date End Date Urbano Denis DO [address] [place] [address] [address] [place] [address] PCP - General 09/03/12 03/17/22 Ruchi Valles RN Nurse Clinic Transplant Surgery 07/30/15 documented as of this encounter
--- OUTSIDE RECORDS SUMMARY | 2024-02-14 11:35 | XMS_ITS | Encounter Summary ---
Author Organization [facility] [place] [address] Care Team Providers Care Training Instructor Name Role Phone Urbano Denis DO Primary Care Provider [phone] Reason for Visit * Reason Onset Date Comments Medication Refill 10/17/2015 Encounter Details Date Type Department Care Team (Late st Contact Info) Description 10/17/2015 Refill [place] [address] Samia Escalante, RN Social History Tobacco Use [...] AM EDT Hospital Encounter Non-Invasive [place] [phone] Arrived documented as of this encounter Visit Diagnoses Not on filedocumented in this encounter Care Teams Training Instructor Relationship Specialty Start Date End Date Urbano Denis DO [address] [place] [address] PCP - General 09/03/12 03/17/22 Ruchi Valles RN Nurse Clinic Transplant Surgery 07/30/15 documented as of this encounter
--- OUTSIDE RECORDS SUMMARY | 2024-02-14 11:35 | XMS_ITS | Encounter Summary ---
Author Organization [facility] [place] [address] Care Team Providers Care Bale Breaker Operator Name Role Phone Urbano Denis DO Primary Care Provider [phone] Encounter Details Date Type Department Care Team (Late st Contact Info) Description 10/26/2015 9:00 AM EDT Office Visit [place] [address] Larry Larkin MD [facility] [place] [address] H/O kidney transplant Social History Tobacco Use [...] Sign Reading Time Taken Comments Blood Pressure 135/98 10/26/2015 8:49 AM EDT Pulse 72 10/26/2015 8:49 AM EDT Temperature - - Respiratory Rate 16 10/26/2015 8:49 AM EDT Oxygen Saturation 97% 10/26/2015 8:49 AM EDT Inhaled Oxygen Concentration - - Weight 100.1 kg (220 lb 9.6 oz) 10/26/2015 8:49 AM EDT Height 177.8 cm (5' 10) 10/26/2015 8:49 AM EDT Body Mass Index 31.65 10/26/2015 8:49 AM EDT documented in this encounter Progress Notes * Larry Larkin MD - 10/30/2015 4:08 PM EDT Follow-Up: Transplant Clinic Date: 10/30/2015 Patient: Cody Bolden Date of Transplant: 09/16/2015 (Kidney) Transplant Surgeon: Chaya History of Present Illness: Cody Bolden is s/p Kidney transplant on 09/16/2015 (Kidney). He presents for evaluation and management after his transplant procedure. He has been doing very well. He has no complaints today. His graft function has continued to improve. Current Meds: Current Outpatient Prescriptions Medication Sig Dispense Refill ??? tacrolimus (PROGRAF) 1 mg Capsule Take 1 mg by mouth 2 times daily. 3 mg in the AM 2 mg in the PM ??? valGANciclovir (VALCYTE) 450 mg Tablet Take 2 tablets by mouth daily for 183 days. 60 tablet 5 ??? sulfamethoxazole-trimethoprim (BACTRIM;SEPTRA) 400-80 mg Tablet Take 1 tablet by mouth daily for 364 days. 30 tablet 11 ??? pantoprazole (PROTONIX) 40 mg Tablet, Delayed Release (E.C.) Take 1 tablet by mouth daily. 30 tablet 11 ??? mycophenolate (CELLCEPT) 250 mg Capsule Take 3 capsules by mouth 2 times daily. Kidney replacedby transplant 09/16/2015. Z94.0 180 capsule 11 ??? levothyroxine (SYNTHROID) 75 mcg Tablet [...] by mouth daily. 30 capsule 11 ??? potassium phosphate, monobasic, (K-PHOS ORIGINAL) 500 mg Tablet, Soluble Take 1 tablet by mouth4 times daily. 120 tablet 11 ??? clopidogrel (PLAVIX) 75 mg Tablet [...] virus infection B19.20 ??? Renal failure N19 Past Medical History: Past Medical History Diagnosis [...] EXTREMITY performed by Que Amaro MD at [facility] OR ??? Pro transplantation of kidney N/A 09/16/2015 @KIDNEY TRANSPLANT, WITHOUT RECIPIENT NEPHRECTOMY performed by Larry Larkin MD at [facility] OR ??? Pro transplant, prep cadaver renal graft N/A 09/16/2015 @PREPARATION CADAVERIC RENAL ALLOGRAFT performed by Larry Larkin MD at [facility] OR ??? N/A 09/16/2015 ORGAN ACQUISITION RENAL, CADAVERIC performed by Larry Larkin MD at [facility] OR Family History: No family history on file. Social History: History Substance Use Topics ??? Smoking status: Former Smoker Types: Cigars ??? Smokeless tobacco: Never Used Comment: cigars, only sometimes ??? Alcohol Use: No ROS: Review of Systems Constitutional: Negative for fever, chills and fatigue. Respiratory: Negative for shortness of breath. Cardiovascular: Positive for leg swelling (improving). Gastrointestinal: Negative for diarrhea and constipation. Genitourinary: Positive for frequency. Neurological: Negative for seizures and numbness. Vital Signs: BP 135/98 mmHg Pulse 72 Resp 16 Ht 177.8 cm (5' 10) Wt 100.064 kg (220 lb 9.6oz) BMI 31.65 kg/m2 SpO2 97% Physical Exam: Objective: Vital signs (most recent): Blood pressure 135/98, pulse 72, resp. rate 16, height 177.8 cm (5' 10), weight 100.064 kg (220 lb 9.6 oz), SpO2 97 %. General appearance: Comfortable. Lungs: Normal respiratory rate and normal effort. Heart: Normal rate. Abdomen: Abdomen is soft. No distension. Bowel sounds: Bowel sounds are normal. Tenderness: There is tenderness in the incisional area. Wound: Clean. There is no dehiscence. There is no drainage. Extremities: There is normal range of motion. There is dependent edema. Neurological: The patient is alert and oriented to person, place and time. Drain: No Labs: Lab Results Component Value Date CREATININE 1.49 10/26/2015 K 4.2 10/26/2015 GLUCOSE 176 10/26/2015 HCT 42.1 10/26/2015 HGB 15.0 10/26/2015 WBC 8.7 10/26/2015 PHOS 2.4* 10/26/2015 Assessment: Cody Bolden is doing well after transplant. During the visit, I examined his wound, reviewed his immunosuppression, discussed pain control, and instructed Mr. Cody Bolden regarding hydration and nutrition. I identified the following additional issues affecting his post-transplant course: adjustment of his prograf dosing. He will also need treatment of his hepatitis C and is scheduled in hepatology Plan: 1. Other Category: Prograf: Yes, 3/2, recheck level next week Prednisone: 15 mg, continue taper MMF: Yes, 750 mg po BID 2. Blood Pressure management: Cardizem, Carvediol 3. Calcium and phosphorus balance reviewed. Continue supplementation: Yes, QID 4. Magnesium balance reviewed. Yes, QID 5. Pharmacy needs addressed. No concerns today. 6. Return to clinic: 3 days MD: LARRY LARKIN MD * Herlinda Bell, RD - 10/26/2015 3:54 PM EDT [facility] Post Transplant Nutrition Follow Up Date: 10/26/2015 Patient: Cody Bolden Transplant Date: 09/16/15 [place] organ UNOS diagnosis: Transplant: Mr. Cody Bolden is a White Not nor 65 y.o. male who is Status Post Kidney transplantation on 09/16/15. Patient was seen by Nutrition services on 10/26/2015 for follow up. Wt Readings from Last 3 Encounters: 10/26/15 100.064 kg (220 lb 9.6 oz) 10/12/15 99.973 kg (220 lb 6.4 oz) 10/05/15 98.884 kg (218 lb) Today's vital signs: BP 135/98 mmHg Pulse 72 Resp 16 Ht 177.8 cm (5' 10) Wt 100.064 kg (220 lb 9.6 oz) BMI 31.65 kg/m2 SpO2 97% Estimated body mass index is 31.65 kg/(m^2) as calculated from the following: Height as of this encounter: 177.8 cm (5' 10). Weight as of this encounter: 100.064 kg (220 lb 9.6 oz). Weight pre-Txp: 100.7 Kg (222 lbs) BMI: 31.9 Labs: Lab Results Component Value Date HGB 15.0 10/26/2015 HCT 42.1 10/26/2015 NA 138 10/26/2015 K 4.2 10/26/2015 BUN 17 10/26/2015 CREATININE 1.49 10/26/2015 GLUCOSE 176 10/26/2015 CALCIUM 9.2 10/26/2015 MAGNESIUM 0.58* 10/26/2015 PHOS 2.4* 10/26/2015 ALBUMIN 4.3 10/26/2015 Cholesterol (in eD-H the component name CHLPL=Cholesterol) Lab Results Component Value Date CHLPL 261* 10/26/2015 Assessment: This curriculum writer provided patient with a copy of his post-transplant nutrition lab report and reviewed with him. Patient's serum cholesterol is elevated today; his tacrolimus level is elevated which may be causing this increase and well as the lower serum phos and continued less than acceptable serum magnesium levels. Plan: Expect MD will adjust Prograf dosing. Continue adequate hydration and phos and magnesium supplements. Follow up next clinic visit and prn. documented in this encounter Plan of Treatment Upcoming Encounters Date Type Department Care Team (Late st Contact Info) Description 04/15/2024 10:00 AM EDT Hospital Encounter [place] [address] Arrived documented as of this encounter Visit Diagnoses Diagnosis H/O kidney transplant Kidney replaced by transplant documented in this encounter Care Teams Bale Breaker Operator Relationship Specialty Start Date End Date Urbano Denis DO [address] [place] [address] PCP - General 09/03/12 03/17/22 Ruchi Valles RN Nurse Clinic Transplant Surgery 07/30/15 documented as of this encounter
--- OUTSIDE RECORDS SUMMARY | 2024-02-14 11:35 | XMS_ITS | Encounter Summary ---
Author Organization [facility] Address [facility] [place] [address] Care Team Providers Care Community Engagement Representative Name Role Phone Urbano Denis DO Primary Care Provider [phone] Reason for Visit * Reason Comments Kidney Transplant Follow-up Encounter Details Date Type Department Care Team (Late st Contact Info) Description 10/05/2015 9:30 AM EDT Office Visit [place] [address] [facility] [place] [address] H/O kidney transplant Social History Tobacco Use [...] Sign Reading Time Taken Comments Blood Pressure 120/73 10/05/2015 8:58 AM EDT Pulse 41 10/05/2015 8:58 AM EDT Temperature 36.4 ??C (97.6 ??F) 10/05/2015 8:58 AM ED T Respiratory Rate 16 10/05/2015 8:58 AM EDT Oxygen Saturation - - Inhaled Oxygen Concentration - - Weight 98.9 kg (218 lb) 10/05/2015 8:58 AM EDT Height 177.8 cm (5' 10) 10/05/2015 8:58 AM EDT Body Mass Index 31.28 10/05/2015 8:58 AM EDT documented in this encounter Progress Notes * Larry Larkin MD - 10/05/2015 4:07 PM EDT Follow-Up: Transplant Clinic Date: 10/05/2015 Patient: Cody Bolden Date of Transplant: 09/16/2015 (Kidney) Transplant Surgeon: Chaya History of Present Illness: Cody Bolden is s/p Kidney transplant on 09/16/2015 (Kidney). He presents for evaluation and management after his transplant procedure. He has been doing very well. He has no complaints today. Current Meds: Current Outpatient Prescriptions Medication Sig Dispense Refill ??? predniSONE (DELTASONE) 5 mg Tablet Take 15 mg by mouth daily. ??? levothyroxine (SYNTHROID) 75 mcg Tablet Take 75 mcg by mouth daily. ??? oxyCODONE (ROXICODONE) 5 mg Tablet Take 1-2 tablets every 6 hours as needed for pain. 50 tablet0 ??? acetaminophen (TYLENOL) 325 mg Tablet Take 2 tablets by mouth every 4 hours as needed for Pain.30 tablet 1 ??? polyethylene glycol (MIRALAX) 17 gram Powder in Packet Take 17 g by mouth daily. 14 each 0 ??? PROGRAF 1 mg Capsule Take 5 capsules by mouth twice daily. KIDNEY TRANSPLANT Z94.0. TRANSPLANT DATE: 09/16/2015 (Patient taking differently: PATIENT TAKING 2mg am 1mg pm) 300 capsule 11 ??? mycophenolate (CELLCEPT) 250 mg Capsule Take 3 capsules by mouth 2 times daily. Kidney replacedby transplant 09/16/2015. Z94.0 180 capsule 11 ??? DILTiazem (DILTIAZEM CD) 120 mg Capsule, Sust. Release 24 hr Take 1 capsule by mouth daily. 30 capsule 11 ??? valGANciclovir (VALCYTE) 450 mg Tablet Take 2 tablets by mouth daily for 183 days. 60 tablet 6 ??? sulfamethoxazole-trimethoprim (BACTRIM;SEPTRA) 400-80 mg Tablet Take 1 tablet by mouth daily for 364 days. 30 tablet 11 ??? nystatin (MYCOSTATIN) 100,000 unit/mL Suspension Swish and swallow 5mL after meals and at bedtime. 473 mL 1 ??? pantoprazole (PROTONIX) 40 mg Tablet, Delayed Release (E.C.) Take 1 tablet by mouth daily. 30 tablet 11 ??? potassium phosphate, monobasic, (K-PHOS ORIGINAL) [...] ALLOGRAFT performed by Larry Larkin MD at [facility] MAIN OR ??? N/A 09/16/2015 ORGAN ACQUISITION RENAL, CADAVERIC performed by Larry Larkin MD at [facility] MAIN OR Family History: No family [...] for seizures and numbness. Vital Signs: BP 120/73 mmHg Pulse 41 Temp(Src) 36.4 ??C (97.6 ??F) (Oral) Resp 16 Ht 177.8 cm (5' 10) Wt 98.884 kg (218 lb) BMI 31.28 kg/m2 Physical Exam: Objective: Vital signs (most recent): Blood pressure 120/73, pulse 41, temperature 36.4 ??C (97.6 ??F), temperature source Oral, resp. rate 16, height 177.8 cm (5' 10), weight 98.884 kg (218 lb). General appearance: Comfortable. Lungs: Normal respiratory rate [...] Labs: Lab Results Component Value Date CREATININE 1.45 10/05/2015 K 4.0 10/05/2015 GLUCOSE 137 10/05/2015 HCT 36.5* 10/05/2015 HGB 12.7* 10/05/2015 WBC 8.8 10/05/2015 PHOS 3.0 10/05/2015 Assessment: Cody Bolden is doing well after transplant. During the visit, I examined his wound, reviewed his immunosuppression, discussed pain control, and instructed Mr. Cody Bolden regarding hydration and nutrition. I identified the following additional issues affecting his post-transplant course: adjustment of his prograf dosing. He will also need treatment of his hepatitis C. Plan: 1. Other Category: Prograf: Yes, increase to 2 mg po BID. Inaccurately noted previously as 11/07 actually 08/06 Prednisone: 15 mg, start taper Thursday MMF: Yes, 750 mg po BID 2. Blood Pressure management: Cardizem, Carvediol 3. Calcium and phosphorus balance reviewed. Continue supplementation: Yes, QID 4. Magnesium balance reviewed. Yes, QID 5. Pharmacy needs addressed. No concerns today. 6. Return to clinic: 3 days MD: LARRY LARKIN MD * Herlinda Bell, RD - 10/05/2015 12:37 PM EDT [facility] Post Transplant Nutrition Follow Up Date: 10/05/2015 Patient: Cody Bolden Transplant Date: 09/16/15 [place] organ UNOS diagnosis: Transplant: Mr. Cody Bolden is a White Not nor 65 y.o. male who is Status Post Kidney transplantation on 09/16/15. Patient was seen by Nutrition services on 10/05/2015 for follow up. Wt Readings from Last 3 Encounters: 10/05/15 98.884 kg (218 lb) 10/02/15 99.338 kg (219 lb) 09/28/15 100.064 kg (220 lb 9.6 oz) Today's vital signs: BP 120/73 mmHg Pulse 41 Temp(Src) 36.4 ??C (97.6 ??F) (Oral) Resp 16 Ht 177.8 cm (5' 10) Wt 98.884 kg (218 lb) BMI 31.28 kg/m2 Estimated body mass index is 31.28 kg/(m^2) as calculated from the following: Height as of this encounter: 177.8 cm (5' 10). Weight as of this encounter: 98.884 kg (218 lb). Weight pre-Txp: 100.7 Kg (222 lbs) BMI: 31.3 Lab Results Component Value Date HGB 12.7* 10/05/2015 HCT 36.5* 10/05/2015 NA 137 10/05/2015 K 4.0 10/05/2015 BUN 21* 10/05/2015 CREATININE 1.45 10/05/2015 GLUCOSE 137 10/05/2015 CALCIUM 9.2 10/05/2015 MAGNESIUM 0.58* 10/05/2015 PHOS 3.0 10/05/2015 ALBUMIN 3.9 10/05/2015 Cholesterol (in eD-H the component name CHLPL=Cholesterol) Lab Results Component Value Date CHLPL 193 10/05/2015 Assessment: This senior writer provided patient with a copy of his post-transplant nutrition lab report and reviewed with him and his . Patient appears better hydrated today evidenced by fairly stable weight, better BP, and lower serum creatinine. He will continue his magnesium and phosphorus replacement. Plan: Follow up next clinic visit and prn. * Victor Manuel Caba DO - 10/05/2015 11:38 AM EDT Error documented in this encounter Miscellaneous Notes * Addendum Note - Larry Larkin MD - 10/05/2015 4:15 PM EDTAddended by: LARRY LARKIN on: 10/05/2015 04:15 PM Modules accepted: Level of Service documented in this encounter Plan of Treatment Upcoming Encounters Date Type Department Care Team (Late st Contact Info) Description 04/15/2024 10:00 AM EDT Hospital Encounter Non-Invasive [place] [address] Arrived documented as of this encounter Procedures Procedure Name Priority Date/Time Associated Diagnosis Comments URINALYSIS WITH REFLEX CULTURE STAT 10/05/2015 8:45 AM EDT H/O kidney transplant URINE CULTURE STAT 10/05/2015 8:45 AM EDT HEMOGRAM STAT 10/05/2015 8:00 AM EDT H/O kidney transplant DIFFERENTIAL, AUTOMATED STAT 10/05/2015 8:00 AM EDT H/O kidney transplant GREEN TUBE HOLD STAT 10/05/2015 8:00 AM EDT TACROLIMUS LEVEL STAT 10/05/2015 8:00 AM EDT H/O kidney transplant RETICULOCYTE COUNT STAT 10/05/2015 8: 00 AM EDT H/O kidney transplant CBC (WITH DIFF) STAT 10/05/2015 8:00 AM EDT H/O kidney transplant URIC ACID STAT 10/05/2015 8:00 AM EDT H/O kidney transplant PHOSPHORUS STAT 10/05/2015 8:00 AM EDT H/O kidney transplant MAGNESIUM STAT 10/05/2015 8:00 AM EDT H/O kidney transplant CHOLESTEROL, TOTAL STAT 10/05/2015 8: 00 AM EDT H/O kidney transplant COMPREHENSIVE METABOLIC PANEL STAT 10/05/2015 8:00 AM EDT H/O kidney transplant documented in this encounter Results * (ABNORMAL) Comprehensive metabolic panel (non-fasting) (10/12/2015 9:45 AM EDT) Glucose 134 65 - 199 mg/dL [facility] Comment:Diabetes: >=200 mg/d L plus symptoms Blood Urea Nitrogen 19 10 - 20 mg/dL [facility] Creatinine 1.47 0.80 - 1.50 mg/dL [facility] Comment: Please note that the pediatric reference intervals supplied above were not validated [place] [facility] Results from pediatric patients should be interpreted in conjunction to the patient's age, height and muscle mass. Sodium 137 135 - 145 mmol/L [facility] Potassium 3.6 3.5 - 5.0 mmol/L [facility] Comment: Please note: ??Patients with WBC >100,000 may have falsely elevated Potassium levels. ??For accurate Potassium quantification in these patients send serum separator tube (gold top) for subsequent determinations. ??Contact the Clinical Chemistry Laboratory if there are any questions. Chloride 99 98 - 107 mmol/L [facility] Carbon Dioxide 25 22 - 31 mmol/L [facility] Anion Gap 13 5 - 15 mmol/L [facility] Calcium 9.3 8.5 - 10.5 mg/dL [facility] Protein, Total 7.0 6.1 - 8.0 gm/dL [facility] Albumin 3.9 3.2 - 5.2 gm/dL [facility] Aspartate Aminotransferase 18 0 - 39 unit/L [facility] Alanine Aminotransferase 27 0 - 55 unit/L [facility] Alkaline Phosphatase 92 40 - 120 unit/L [facility] Bilirubin, Total 0.8 0.2 - 1.3 mg/dL [facility] Bilirubin, Direct 0.1 0.0 - 0.3 mg/dL [facility] Est Glomerular Filtration Rate 48(L) >=60 [facility] [...] the following links into your internet browser. [email or web address] Blood specimen (specimen) 10/12/2015 9:45 AM EDT 10/12/2015 9:57 AM EDT Narrative Resulting Agency Comment Spec In Lab Que Amaro MD CHEMISTRY ROCHELLE JENNINGS [facility] [place] [address] * Tacrolimus level (10/12/2015 9:45 AM EDT) Tacrolimus 5.9 ng/mL [facility] Comment:Trough therapeutic: 5-15 ng/mL Blood specimen (specimen) 10/12/2015 9:45 AM EDT 10/12/2015 11:13 AM EDT Narrative Resulting Agency Comment Spec In Lab Que Amaro MD CHEMISTRY ORDE RABLES Performing Organization Address City/[facility]/ZIP Co de Phone Number [facility] [place] [address] * (ABNORMAL) Reticulocyte Count (10/12/2015 9:45 AM EDT) Reticulocyte % 3.1(H) 0.5 - 2.4 % [facility] Retic Abs # 0.130(H) 0.027 - 0.095 x10(6)/mc L [facility] Immature Retic% 15.1 2.3 - 15.9 % [facility] Reticulated Hgb 34.9 28.5 - 38.9 pg [facility] Immature Plt % 1.0 0.0 - 7.4 % [facility] Blood specimen (specimen) 10/12/2015 9:45 AM EDT 10/12/2015 9:57 AM EDT Narrative Resulting Agency Comment Spec In Lab Que Amaro MD HEMATOLOGY ORD ERABLES [facility] [place] [address] * Uric acid (10/12/2015 9:45 AM EDT) Uric Acid 6.3 3.5 - 8.5 mg/dL [facility] Blood specimen (specimen) 10/12/2015 9:45 AM EDT 10/12/2015 9:57 AM EDT Narrative Resulting Agency Comment Spec In Lab Que Amaro MD CHEMISTRY ROCHELLE JENNINGS Performing Organization Address [facility] Co de Phone Number [facility] [place] [address] * (ABNORMAL) Phosphorus (10/12/2015 9:45 AM EDT) Phosphorus 2.4(L) 2.5 - 4.5 mg/dL [facility] Blood specimen (specimen) 10/12/2015 9:45 AM EDT 10/12/2015 9:57 AM EDT Narrative Resulting Agency Comment Spec In Lab Que Amaro MD CHEMISTRY ROCHELLE JENNINGS Performing Organization Address [facility] Co de Phone Number [facility] [place] [address] * (ABNORMAL) Magnesium (10/12/2015 9:45 AM EDT) Magnesium 0.54(L) 0.69 - 1.07 mmol/L [facility] Blood specimen (specimen) 10/12/2015 9:45 AM EDT 10/12/2015 9:57 AM EDT Narrative Resulting Agency Comment Spec In Lab Que Amaro MD CHEMISTRY ROCHELLE JENNINGS Performing Organization Address [facility] Co de Phone Number [facility] [place] [address] * (ABNORMAL) Cholesterol, total (10/12/2015 9:45 AM EDT) Cholesterol, Total 211(H) <=199 mg/dL [facility] Comment: Recommendations of the NCEP Adult Treatment Panel for the following risk cutoff thresholds for the [place] population: Desirable: <200 mg/dL Borderline High: 200-239 mg/dL High: > or = 240 mg/dL Blood specimen (specimen) 10/12/2015 9:45 AM EDT 10/12/2015 9:57 AM EDT Narrative Resulting Agency Comment Spec In Lab Que Amaro MD CHEMISTRY ROCHELLE JENNINGS Performing Organization Address City/[facility]/ZIP Co de Phone Number [facility] [place] [address] * Urine culture (10/05/2015 8:45 AM EDT) Urine Culture No growth (Less than 1,000 cfu/ml). [facility] Urine specimen obtained by clean catch procedure (specimen) 10/05/2015 8:45 AM EDT 10/05/2015 10:03 AM EDT Narrative Resulting Agency Comment Spec In Lab Larry Larkin MD MICROBIOLOGY - GENER AL ORDERABLES Performing Organization Address [facility] Co de Phone Number [facility] [place] [address] * (ABNORMAL) Urinalysis with reflex Culture (10/05/2015 8:45 AM EDT) Glucose, Urine Dipstick Negative Negative [...] [facility] Blood, Urine Dipstick Small(A) Negative mg/dL [facility] Ketone, Urine Dipstick Negative Negative mg/dL [facility] Nitrite, Urine Dipstick Negative Negative [facility] Leukocytes, Urine Dipstick Negative Negative [facility] Appearance, Urine Dipstick Clear Clear [facility] Specific [place] Urine Automated 1.023 1.002 - 1.030 [facility] Color, Urine Dipstick Yellow Yellow [facility] RBC, Urine 2 0 - 3 /HPF [facility] WBC, Urine 8(H) 0 - 3 /HPF [facility] WBC Clumps, Urine Rare(A) None /HPF [facility] Reflex to Culture Yes [facility] Urine specimen obtained by clean catch procedure (specimen) 10/05/2015 8:45 AM EDT 10/05/2015 9:12 AM EDT Narrative Resulting Agency Comment Spec In Lab Larry Larkin MD URINE ORDERABLES Performing Organization Address [facility] Co de Phone Number [facility] [place] [address] * Green Tube HOLD (10/05/2015 8:00 AM EDT) Pathologist [facility] Green Hold Sample in lab. [facility] Blood specimen (specimen) Venous Draw / Unknown 10/05/2015 8:00 AM EDT 10/05/2015 9:08 AM EDT Larry Larkin MD CHEMISTRY ORDERABLES Performing Organization Address City/[facility]/ZIP Co de Phone Number [facility] [place] [address] * Differential, Automated (10/05/2015 8:00 AM EDT) Neutrophil % 63.0 % [facility] Neutrophil Absolute 5.57 1.50 - 6.30 x10(3)/[facility] Lymph % 28.9 % [facility] Lymphocytes Abs 2.6 1.0 - 3.6 x10(3)/[facility] Monocyte % 3.4 % [facility] Monocyte Abs 0.3 0.2 - 1.0 x10(3)/[facility] Eos % 2.8 % [facility] Eosinophils Abs 0.2 0.0 - 0.5 x10(3)/[facility] Basophil % 1.6 % [facility] Baso Absolute 0.1 0.0 - 0.2 x10(3)/[facility] Immature Gran % 0.30 % [facility] Comment: Immature granulocytes(IG's)percentage and absolute count will include metamyelocytes, myelocytes, and promyelocytes. Blood smears from CBCs yielding IG's will be scanned manually for concordance. If this scan disagrees with the automated IG or if promyelocytes are noted, a manual differential will be performed. Immature Gran Absolute 0.03 0.00 - 0.05 x10(3)/[facility] Blood specimen (specimen) 10/05/2015 8:00 AM EDT 10/05/2015 9:07 AM EDT Narrative Resulting Agency Comment Spec In Lab Larry Larkin MD HEMATOLOGY ORDERABLE S [facility] [place] [address] * (ABNORMAL) Hemogram (10/05/2015 8:00 AM EDT) White Blood Cell 8.8 4.0 - 10.0 x10(3)/mc L [facility] Red Blood Cell 3.97(L) 4.63 - 6.08 x10(6)/mc L [facility] Hemoglobin 12.7(L) 13.7 - 17.5 gm/dL [facility] Hematocrit 36.5(L) 40.0 - 51.0 % [facility] Mean Cell Volume 91.9 79.0 - 92.0 fL [facility] Mean Cell Hemoglobin 32.0 25.6 - 32.2 pg [facility] Mean Cell Hemoglobin Concentration 34.8 32.0 - 36.5 gm/dL [facility] Platelet 239 145 - 370 x10(3)/mc L [facility] RDW Standard Deviation 52.0(H) 35.0 - 46.0 fL [facility] RDW coefficient of variation 15.6(H) 10.9 - 14.4 % [facility] Mean Platelet Volume 9.4 9.0 - 12.0 fL [facility] Blood specimen (specimen) 10/05/2015 8:00 AM EDT 10/05/2015 9:07 AM EDT Narrative Resulting Agency Comment Spec In Lab Larry Larkin MD HEMATOLOGY ORDERABLE S Performing Organization Address [facility] Co de Phone Number [facility] [place] [address] * Tacrolimus level (10/05/2015 8:00 AM EDT) Tacrolimus 5.4 ng/mL [facility] Comment:Trough therapeutic: 5-15 ng/mL Blood specimen (specimen) 10/05/2015 8:00 AM EDT 10/05/2015 10:50 AM EDT Narrative Resulting Agency Comment Spec In Lab Larry Larkin MD CHEMISTRY ORDERABLES Performing Organization Address [facility] Co de Phone Number [facility] [place] [address] * (ABNORMAL) Reticulocyte Count (10/05/2015 8:00 AM EDT) Reticulocyte % 3.0(H) 0.5 - 2.4 % [facility] Retic Abs # 0.120(H) 0.027 - 0.095 x10(6)/mc L [facility] Immature Retic% 6.5 2.3 - 15.9 % [facility] Reticulated Hgb 34.2 28.5 - 38.9 pg [facility] Immature Plt % 1.2 0.0 - 7.4 % [facility] Blood specimen (specimen) 10/05/2015 8:00 AM EDT 10/05/2015 9:07 AM EDT Narrative Resulting Agency Comment Spec In Lab Larry Larkin MD HEMATOLOGY ORDERABLE S Performing Organization Address [facility] Co de Phone Number [facility] [place] [address] * (ABNORMAL) Magnesium (10/05/2015 8:00 AM EDT) Magnesium 0.58(L) 0.69 - 1.07 mmol/L [facility] Blood specimen (specimen) 10/05/2015 8:00 AM EDT 10/05/2015 9:07 AM EDT Narrative Resulting Agency Comment Spec In Lab Larry Larkin MD CHEMISTRY ORDERABLES Performing Organization Address [facility] Co de Phone Number [facility] [place] [address] * Phosphorus (10/05/2015 8:00 AM EDT) Phosphorus 3.0 2.5 - 4.5 mg/dL [facility] Blood specimen (specimen) 10/05/2015 8:00 AM EDT 10/05/2015 9:07 AM EDT Narrative Resulting Agency Comment Spec In Lab Larry Larkin MD CHEMISTRY ORDERABLES Performing Organization Address [facility] Co de Phone Number [facility] [place] [address] * Uric acid (10/05/2015 8:00 AM EDT) Uric Acid 6.0 3.5 - 8.5 mg/dL [facility] Blood specimen (specimen) 10/05/2015 8:00 AM EDT 10/05/2015 9:07 AM EDT Narrative Resulting Agency Comment Spec In Lab Larry Larkin MD CHEMISTRY ORDERABLES [facility] [place] [address] * (ABNORMAL) Comprehensive metabolic panel (non-fasting) (10/05/2015 8:00 AM EDT) Glucose 137 65 - 199 mg/dL [facility] Comment:Diabetes: >=200 mg/d L plus symptoms Blood Urea Nitrogen 21(H) 10 - 20 mg/dL [facility] Creatinine 1.45 0.80 - 1.50 mg/dL [facility] Comment: Please note that the pediatric reference intervals supplied above were not validated [place] [facility] Results from pediatric patients should be interpreted in conjunction to the patient's age, height and muscle mass. Sodium 137 135 - 145 mmol/L [facility] Potassium 4.0 3.5 - 5.0 mmol/L [facility] Comment: Please note: ??Patients with WBC >100,000 may have falsely elevated Potassium levels. ??For accurate Potassium quantification in these patients send serum separator tube (gold top) for subsequent determinations. ??Contact the Clinical Chemistry Laboratory if there are any questions. Chloride 100 98 - 107 mmol/L [facility] Carbon Dioxide 23 22 - 31 mmol/L [facility] Anion Gap 14 5 - 15 mmol/L [facility] Calcium 9.2 8.5 - 10.5 mg/dL [facility] Protein, Total 6.8 6.1 - 8.0 gm/dL [facility] Albumin 3.9 3.2 - 5.2 gm/dL [facility] Aspartate Aminotransferase 17 0 - 39 unit/L [facility] Alanine Aminotransferase 24 0 - 55 unit/L [facility] Alkaline Phosphatase 85 40 - 120 unit/L [facility] Bilirubin, Total 0.7 0.2 - 1.3 mg/dL [facility] Bilirubin, Direct 0.1 0.0 - 0.3 mg/dL [facility] Est Glomerular Filtration Rate 49(L) >=60 [facility] [...] the following links into your internet browser. [email or web address] Blood specimen (specimen) 10/05/2015 8:00 AM EDT 10/05/2015 9:07 AM EDT Narrative Resulting Agency Comment Spec In Lab Larry Larkin MD CHEMISTRY ORDERABLES Performing Organization Address City/[facility]/ZIP Co de Phone Number [facility] [place] [address] * Cholesterol, total (10/05/2015 8:00 AM EDT) Cholesterol, Total 193 <=199 mg/dL [facility] Comment: Recommendations of the NCEP Adult Treatment Panel for the following risk cutoff thresholds for the [place] population: Desirable: <200 mg/dL Borderline High: 200-239 mg/dL High: > or = 240 mg/dL Blood specimen (specimen) 10/05/2015 8:00 AM EDT 10/05/2015 9:07 AM EDT Narrative Resulting Agency Comment Spec In Lab Larry Larkin MD CHEMISTRY ORDERABLES Performing Organization Address City/[facility]/ZIP Co de Phone Number [facility] [place] [address] documented in this encounter Visit Diagnoses Diagnosis H/O kidney transplant Kidney replaced by transplant documented in this encounter Care Teams Community Engagement Representative Relationship Specialty Start Date End Date Urbano Denis DO [address] [place] [address] PCP - General 09/03/12 03/17/22 Ruchi Valles RN Nurse Clinic Transplant Surgery 07/30/15 documented as of this encounter
--- OUTSIDE RECORDS SUMMARY | 2024-02-14 11:35 | XMS_ITS | Encounter Summary ---
Author Organization [facility] [place] [address] Care Team Providers Care Human Resources Department Supervisor Name Role Phone Urbano Denis DO Primary Care Provider + [phone] Reason for Visit * Surgical (Routine) - Closed Specialty Diagnoses / Procedures Referred By Humberto flor Referred To Contact Urology Procedures cysto stent removal Franko Larkin MD [facility] [place] [address] [facility] [place] [address] Referral ID Status Reason Start Date Expiration Date Visits Re quested Visits Authorized [id number] Closed 09/17/2015 09/16/2016 1 1 Encounter Details Date Type Department Care Team (Late st Contact Info) Description 10/26/2015 11:00 AM EDT [place] [address] Alex Patten MD [facility] [place] [address] H/O kidney transplant Social History Tobacco Use [...] Sign Reading Time Taken Comments Blood Pressure 143/113 10/26/2015 11:05 AM EDT Pulse 85 10/26/2015 11:05 AM EDT Temperature - - Respiratory Rate - - Oxygen Saturation 97% 10/26/2015 11:05 AM EDT Inhaled Oxygen Concentration - - Weight - - Height - - Body Mass Index - - documented in this encounter Patient Instructions * Patient Instructions* Bobby Moya RN - 10/26/2015 11:26 AM EDT Instructions following Cystoscopy Activity: As tolerated by your comfort level. Fluids: You should increase your water today. Avoid coffee, tea and cola. You do not need to oxtisd84 ounces of water today. Urination: You will likely have a small amount of blood in your urine for the next several days. This is normal; however, if you are passing large amounts of blood clots or are unable to void please call our office at [phone] before 5PM or [phone] after hours. Please call if: * you have copious blood in your urine * fevers greater than 101.3 F * you are unable to void The number for questions is [phone] before 5 PM weekdays and [phone] after 5 PM and weekends. Follow-up: With Urology as needed documented in this encounter Progress Notes * Federica Arrington - 10/26/2015 11:51 AM EDT Procedure: Flexible cystoscopy Surgeon: Dr. Arrington Pre-Operative Diagnosis: post-transplant stent removal Post-Operative Diagnosis: Normal cystoscopic exam, stent removed Complications: None Procedure: Urinalysis revealed no evidence of an active urinary tract infection. Patient is currently on Bactrim for routine post-transplant prophylaxis. After informed consent was obtained and the external genitalia appropriately had been cleaned and draped lidocaine was instilled into the urethra to achieve topical anesthesia. The flexible telescope was inserted into the urethra and advanced into the bladder under direct vision. Anterior urethroscopy was normal. The prostatic urethra was normal. The stent was grasped with stent grasper and removed. It was inspected and confirmed that it was removed intact. The cystoscope was removed. The patient tolerated the procedure without difficulty. There were no complications. ADDENDUM: Resident only. Pt not seen. Alex Patten MD documented in this encounter Plan of Treatment Upcoming Encounters Date Type Department Care Team (Late st Contact Info) Description 04/15/2024 10:00 AM EDT Hospital Encounter Non-Invasive [place] [phone] Arrived Scheduled Orders Name Type Priority Associated Diagnoses Orde r Schedule Cystoscopy PROCEDURE Routine H/O kidney transplant Ordered: 10/26/2015 documented as of this encounter Visit Diagnoses Diagnosis H/O kidney transplant Kidney replaced by transplant documented in this encounter Care Teams Human Resources Department Supervisor Relationship Specialty Start Date End Date Urbano Denis DO [facility] [address] [facility] [address] [place] [address] PCP - General 09/03/12 03/17/22 Ruchi Valles RN Nurse Clinic Transplant Surgery 07/30/15 documented as of this encounter
--- OUTSIDE RECORDS SUMMARY | 2024-02-14 11:35 | XMS_ITS | Encounter Summary ---
Author Organization [facility] [place] [address] Care Team Providers Care Clinical Secretary Name Role Phone Urbano Denis DO Primary Care Provider [phone] Encounter Details Date Type Department Care Team (Late st Contact Info) Description 10/04/2015 Telephone [place] [phone] Samia Escalante, RN Social History Tobacco Use [...] Telephone Encounter - Samia Escalante, RN - 10/04/2015 2:00 PM EDT Called pt to discuss condition today: Thursday: T: 96.4F P: 60 BP: 158/80 Weight: 213lbs Intake: 2,610 cc Output (urine): 2,450 cc Today: T: 96.8F P: 64 BP: 142/70 Weight: 213lbs Intake: 1,500 cc (thus far) Output (urine): 2,400 cc (thus far) Spoke to pt's who reviewed his vitals with me. Pt was taken off of his blood pressure medications on Thursday. BP's have risen, but he denies symptoms from elevated pressures. His pain is well-controlled. Pt and do not have questions or concerns at this time. Back in clinic tomorrow with Dr. Amaro. Samia Escalante, RN [facility] Solid Organ Transplant [phone] (Pager: [phone]) documented in this encounter Plan of Treatment Upcoming Encounters Date Type Department Care Team (Late st Contact Info) Description 04/15/2024 10:00 AM EDT Hospital Encounter Non-Invasive [place] [address] Arrived documented as of this encounter Visit Diagnoses Not on filedocumented in this encounter Care Teams Clinical Secretary Relationship Specialty Start Date End Date Urbano Denis DO [address] [place] [address] PCP - General 09/03/12 03/17/22 Ruchi Valles RN Nurse Clinic Transplant Surgery 07/30/15 documented as of this encounter
--- OUTSIDE RECORDS SUMMARY | 2024-02-14 11:35 | XMS_ITS | Encounter Summary ---
Author Organization [facility] [place] [address] Care Team Providers Care Emt Dispatcher Name Role Phone Adeel Urbano KIRBY Primary Care Provider Encounter Details Date Type Department Care Team (Late st Contact Info) Description 10/26/2015 Orders Only [place] [phone] Dominique Jackson RN H/O kidney transplant Social [...] AM EDT Hospital Encounter Non-Invasive [place] [phone] Arrived documented as of this encounter Results * (ABNORMAL) Urinalysis with reflex Culture (10/26/2015 8:13 AM EDT) Glucose, Urine Dipstick Negative Negative mg/dL [facility] Protein, Urine Dipstick 30(A) Negative mg/dL [facility] Bilirubin, [...] [facility] Blood, Urine Dipstick Small(A) Negative mg/dL [facility] Ketone, Urine Dipstick Negative Negative mg/dL [facility] Nitrite, Urine Dipstick Negative Negative [facility] Leukocytes, Urine Dipstick Trace(A) Negative [facility] Appearance, Urine Dipstick Clear Clear [facility] Specific [place] Urine Automated 1.023 1.002 - 1.030 [facility] Color, Urine Dipstick Yellow Yellow [facility] RBC, Urine 5(H) 0 - 3 /HPF [facility] WBC, Urine 10(H) 0 - 3 /HPF [facility] Squamous Epithelial Cells, Urine <1 <=4 /HPF [facility] Hyaline Casts, Urine 3(H) 0 - 2 /LPF [facility] Reflex to Culture Yes [facility] Urine specimen (specimen) 10/26/2015 8:13 AM EDT 10/26/2015 8:17 AM EDT Narrative Resulting Agency Comment Spec In Lab Tal Eagle MD URINE ORDERABLES [facility] [place] [address] * (ABNORMAL) Comprehensive metabolic panel (non-fasting) (10/26/2015 8:10 AM EDT) Glucose 176 65 - 199 mg/dL [facility] Comment:Diabetes: >=200 mg/d L plus symptoms Blood Urea Nitrogen 17 10 - 20 mg/dL [facility] Creatinine 1.49 0.80 - 1.50 mg/dL [facility] Comment: Please note that the pediatric reference intervals supplied above were not validated at [facility]. Results from pediatric patients should be interpreted in conjunction to the patient's age, height and muscle mass. Sodium 138 135 - 145 mmol/L [facility] Potassium 4.2 3.5 - 5.0 mmol/L [facility] Comment: Please note: ??Patients with WBC >100,000 may have falsely elevated Potassium levels. ??For accurate Potassium quantification in these patients send serum separator tube (gold top) for subsequent determinations. ??Contact the Clinical Chemistry Laboratory if there are any questions. Chloride 99 98 - 107 mmol/L [facility] Carbon Dioxide 22 22 - 31 mmol/L [facility] Anion Gap 17(H) 5 - 15 mmol/L [facility] Calcium 9.2 8.5 - 10.5 mg/dL [facility] Protein, Total 7.5 6.1 - 8.0 gm/dL [facility] Albumin 4.3 3.2 - 5.2 gm/dL [facility] Aspartate Aminotransferase 19 0 - 39 unit/L [facility] Alanine Aminotransferase 29 0 - 55 unit/L [facility] Alkaline Phosphatase 86 40 - 120 unit/L [facility] Bilirubin, Total 1.0 0.2 - 1.3 mg/dL [facility] Bilirubin, Direct 0.2 0.0 - 0.3 mg/dL [facility] Est Glomerular Filtration Rate 47(L) >=60 [facility] Comment: This [...] the following links into your internet browser. [email or web address] Blood specimen (specimen) 10/26/2015 8:10 AM EDT 10/26/2015 8:19 AM EDT Narrative Resulting Agency Comment Spec In Lab Tal Eagle MD CHEMISTRY ORDERAB LES Performing Organization Address City/[facility] Co de Phone Number [facility] [place] [address] * Uric acid (10/26/2015 8:10 AM EDT) Uric Acid 7.8 3.5 - 8.5 mg/dL [facility] Blood specimen (specimen) 10/26/2015 8:10 AM EDT 10/26/2015 8:19 AM EDT Narrative Resulting Agency Comment Spec In Lab Tal Eagle MD CHEMISTRY ORDERAB LES Performing Organization Address [facility] Co de Phone Number [facility] [place] [address] * Tacrolimus level (10/26/2015 8:10 AM EDT) Tacrolimus 11.4 ng/mL [facility] Comment:Trough therapeutic: 5-15 ng/mL Blood specimen (specimen) 10/26/2015 8:10 AM EDT 10/26/2015 10:39 AM EDT Narrative Resulting Agency Comment Spec In Lab Tal Eagle MD CHEMISTRY ORDERAB LES Performing Organization Address [facility] Co de Phone Number [facility] [place] [address] * (ABNORMAL) Magnesium (10/26/2015 8:10 AM EDT) Magnesium 0.58(L) 0.69 - 1.07 mmol/L [facility] Blood specimen (specimen) 10/26/2015 8:10 AM EDT 10/26/2015 8:19 AM EDT Narrative Resulting Agency Comment Spec In Lab Tal Eagle MD CHEMISTRY ORDERAB LES [facility] [place] [address] documented in this encounter Visit Diagnoses Diagnosis H/O kidney transplant Kidney replaced by transplant documented in this encounter Care Teams Emt Dispatcher Relationship Specialty Start Date End Date Urbano Denis DO [address] [place] [address] PCP - General 09/03/12 03/17/22 Ruchi Valles RN Nurse Clinic Transplant Surgery 07/30/15 documented as of this encounter
--- OUTSIDE RECORDS SUMMARY | 2024-02-14 11:35 | XMS_ITS | Encounter Summary ---
Author Organization [facility] [place] [address] Care Team Providers Care Journeyman Lineman Name Role Phone Urbano Denis DO Primary Care Provider Encounter Details Date Type Department Care Team (Late st Contact Info) Description 10/12/2015 Telephone [place] [phone] Marisela Metcalf, RN Social History Tobacco Use [...] Telephone Encounter - Marisela Metcalf LPN - 10/12/2015 3:22 PM EDT Prograf Dose Adjustment Patient: Cody Gomez Yuan Date of Lab Test: 10/12/2015 Prograf Level: 5.9 Previous Prograf Dose: 2 mg BID New Prograf Dose: 3 mg in the morning 2 mg in the evening Spoke with Cody Patricia Yuan to relay information about Prograf level and need to adjust dosing. Ptis aware of the result and repeated back adjustment in dosing. Pt is aware of the need for a repeatblood draw in one week's time and has proper orders to have this done. Pt understands plan of care. No additional questions or concerns. Marisela Metcalf LPN Solid Organ Transplant documented in this encounter Plan of Treatment Upcoming Encounters Date Type Department Care Team (Late st Contact Info) Description 04/15/2024 10:00 AM EDT Hospital Encounter [place] [address] Arrived documented as of this encounter Visit Diagnoses Not on filedocumented in this encounter Care Teams Journeyman Lineman Relationship Specialty Start Date End Date Urbano Denis DO [address] [place] [address] [address] [place] [address] PCP - General 09/03/12 03/17/22 Ruchi Valles RN Nurse Clinic Transplant Surgery 07/30/15 documented as of this encounter
--- OUTSIDE RECORDS SUMMARY | 2024-02-14 11:35 | XMS_ITS | Encounter Summary ---
[place] [address] Care Team Providers Care Liability Claims Representative Name Role Phone Adeel Urbano KIRBY Primary Care Provider Encounter Details Date Type Department Care Team (Latest Contact Info) Description 11/08/2015 9:00 AM EDT Laboratory Appointment Lab [address] [place] [phone] Kidney replaced by transplant Social History Tobacco [...] EDT Hospital Encounter Non-Invasive [place] [phone] Arrived documented as of this encounter Procedures Procedure Name Priority Date/Time Associated Diagnosis Comments BK QUANT URINE RESULT STAT 11/08/2015 8:55 AM EDT Kidney replaced by transplant BKV QUANT URINE STAT 11/08/2015 8:55 AM EDT Kidney replaced by transplant PROTEIN/CREATININE RATIO, URINE STAT 11/08/2015 8:55 AM EDT Kidney replaced by transplant URINALYSIS WITH REFLEX CULTURE STAT 11/08/2015 8:55 AM EDT Kidney replaced by transplant URINE CULTURE STAT 11/08/2015 8:55 AM EDT HEMOGRAM STAT 11/08/2015 8:49 AM EDT Kidney replaced by transplant DIFFERENTIAL, AUTOMATED STAT 11/08/2015 8:49 AM EDT Kidney replaced by transplant TACROLIMUS LEVEL STAT 11/08/2015 8:49 AM EDT Kidney replaced by transplant RETICULOCYTE COUNT STAT 11/08/2015 8: 49 AM EDT Kidney replaced by transplant CBC (WITH DIFF) STAT 11/08/2015 8:49 AM EDT Kidney replaced by transplant URIC ACID STAT 11/08/2015 8:49 AM EDT Kidney replaced by transplant PHOSPHORUS STAT 11/08/2015 8:49 AM EDT Kidney replaced by transplant MAGNESIUM STAT 11/08/2015 8:49 AM EDT Kidney replaced by transplant CHOLESTEROL, TOTAL STAT 11/08/2015 8: 49 AM EDT Kidney replaced by transplant COMPREHENSIVE METABOLIC PANEL STAT 11/08/2015 8:49 AM EDT Kidney replaced by transplant documented in this encounter Results * BK Quant Urine Result (11/08/2015 8:55 AM EDT) BKV Urine Result Not Detected [facility] BKV Urine Interp BK Virus [...] DNA isolated from urine was performed using Calera BKV(ASR) reagents and the Applied Biosystems 7500 Fast Real-Time PCR System. In addition, the PCR product sequence is confirmed using physical properties (melt curve analysis). This test was developed and its performance determined by the [facility]. It has not been cleared or approved by the U.S. Food and Drug Administration. This test is used for clinical purposes and should not be considered investigational or for research purposes. The Molecular Pathology Laboratory is certified by the Clinical Laboratory Improvement Act of 1988 and as such is allowed to perform high complexity clinical testing. [facility] Comment: [VERIFIED DATE]11.20.15 Verified By:Xiomy Gupta (Electronic Signature) Urine specimen (specimen) 11/08/2015 8:55 AM EDT 11/08/2015 10:49 AM EDT Narrative Resulting Agency Comment Spec In Lab Tal Eagle MD HEMATOLOGY ORDERA BLES Performing Organization Address [facility] [[email or web address]] Co de Phone Number [facility] [place] [address] * (ABNORMAL) Urine culture (11/08/2015 8:55 AM EDT) Urine Culture 10,000-49,000 cfu/ml Enterococcus species(A) [facility] Organism Enterococcus species(A) [facility] Urine specimen (specimen) 11/08/2015 8:55 AM EDT 11/08/2015 9:29 AM EDT Narrative Resulting Agency Comment Spec [...] Resistant Enterococcus species Vancomycin MICROSCAN METHOD Sensitive Tal Eagle MD MICROBIOLOGY - NERAL ORDERABLES Performing Organization Address City/[facility]/ZIP Co de Phone Number [facility] [place] [address] * Protein/Creatinine Ratio, urine (11/08/2015 8:55 AM [...] Eagle MD URINE ORDERABLES Performing Organization Address [facility] [[email or web address]] Co de Phone Number [facility] [place] [address] * (ABNORMAL) Urinalysis with reflex Culture (11/08/2015 [...] HOSPITAL LABORATORY Leukocytes, Urine Dipstick Trace(A) Negative [facility] Appearance, Urine Dipstick Clear Clear [facility] Specific [place] Urine Automated 1.016 1.002 - 1.030 BARRE [...] MD URINE ORDERABLES [facility] [place] [address] * Differential, Automated (11/08/2015 8:49 AM EDT) Neutrophil % 70.9 % [facility] Neutrophil Absolute 5.70 1.50 - 6.30 x10(3)/[facility] Lymph % 18.7 % [facility] Lymphocytes Abs 1.5 1.0 - 3.6 x10(3)/[facility] Monocyte % 5.6 % [facility] Monocyte Abs 0.4 0.2 - 1.0 x10(3)/[facility] Eos % 2.9 % [facility] Eosinophils Abs 0.2 0.0 - 0.5 x10(3)/[facility] Basophil % 1.4 % [facility] Baso Absolute 0.1 0.0 - 0.2 x10(3)/[facility] Immature Gran % 0.50 % [facility] Comment: Immature granulocytes(IG's)percentage and absolute count will include metamyelocytes, myelocytes, and promyelocytes. Blood smears from CBCs yielding IG's will be scanned manually for concordance. If this scan disagrees with the automated IG or if promyelocytes are noted, a manual differential will be performed. Immature Gran Absolute 0.04 0.00 - 0.05 x10(3)/[facility] Blood specimen (specimen) 11/08/2015 8:49 AM EDT 11/08/2015 8:53 AM EDT Narrative Resulting Agency Comment Spec In Lab Tal Eagle MD HEMATOLOGY ORDERA BLES [facility] [place] [address] * (ABNORMAL) Hemogram (11/08/2015 8:49 AM EDT) White Blood Cell 8.0 4.0 - 10.0 x10(3)/mc L [facility] Red Blood Cell 4.42(L) 4.63 - 6.08 x10(6)/mc L [facility] Hemoglobin 14.0 13.7 - 17.5 gm/dL [facility] Hematocrit 41.1 40.0 - 51.0 % [facility] Mean Cell Volume 93.0(H) 79.0 - 92.0 fL [facility] Mean Cell Hemoglobin 31.7 25.6 - 32.2 pg [facility] Mean Cell Hemoglobin Concentration 34.1 32.0 - 36.5 gm/dL [facility] Platelet 279 145 - 370 x10(3)/mc L [facility] RDW Standard Deviation 50.8(H) 35.0 - 46.0 fL [facility] RDW coefficient of variation 14.9(H) 10.9 - 14.4 % [facility] Mean Platelet Volume 9.3 9.0 - 12.0 fL [facility] Blood specimen (specimen) 11/08/2015 8:49 AM EDT 11/08/2015 8:53 AM EDT Narrative Resulting Agency Comment Spec In Lab Tal Eagle MD HEMATOLOGY ORDERA BLES [facility] [place] [address] * (ABNORMAL) Comprehensive metabolic panel (non-fasting) (11/08/2015 8:49 AM EDT) Glucose 162 65 - 199 mg/dL [facility] Comment:Diabetes: >=200 mg/d L plus symptoms Blood Urea Nitrogen 23(H) 10 - 20 mg/dL [facility] Creatinine 1.89(H) 0.80 - 1.50 mg/dL [facility] Comment: Please note that the pediatric reference intervals supplied above were not validated at [facility]. Results from pediatric patients should be interpreted [...] the following links into your internet browser. [email or web address] Blood specimen (specimen) 11/08/2015 8:49 AM EDT 11/08/2015 8:53 AM EDT Narrative Resulting Agency Comment Spec In Lab Tal Eagle MD CHEMISTRY ORDERAB LES Performing Organization Address [facility] [[email or web address]] Co de Phone Number [facility] [place] [address] * Magnesium (11/08/2015 8:49 AM EDT) Magnesium 0.69 0.69 - 1.07 mmol/L [facility] Blood specimen (specimen) 11/08/2015 8:49 AM EDT 11/08/2015 8:53 AM EDT Narrative Resulting Agency Comment Spec In Lab Tal Eagle MD CHEMISTRY ORDERAB LES Performing Organization Address [facility] [[email or web address]] Co de Phone Number [facility] [place] [address] * Phosphorus (11/08/2015 8:49 AM EDT) Phosphorus 2.7 2.5 - 4.5 mg/dL [facility] Blood specimen (specimen) 11/08/2015 8:49 AM EDT 11/08/2015 8:53 AM EDT Narrative Resulting Agency Comment Spec In Lab Tal Eagle MD CHEMISTRY ORDERAB LES Performing Organization Address [facility] [[email or web address]] Co de Phone Number [facility] [place] [address] * (ABNORMAL) Uric acid (11/08/2015 8:49 AM EDT) Uric Acid 9.8(H) 3.5 - 8.5 mg/dL [facility] Blood specimen (specimen) 11/08/2015 8:49 AM EDT 11/08/2015 8:53 AM EDT Narrative Resulting Agency Comment Spec In Lab Tal Eagle MD CHEMISTRY ORDERAB LES Performing Organization Address City/[facility]/ZIP Co de Phone Number [facility] [place] [address] * Tacrolimus level (11/08/2015 8:49 AM EDT) Pathologist [facility] Tacrolimus 12.7 ng/mL [facility] Comment:Trough therapeutic: 5-15 ng/mL Blood specimen (specimen) 11/08/2015 8:49 AM EDT 11/08/2015 11:06 AM EDT Narrative Resulting Agency Comment Spec In Lab Tal Eagle MD CHEMISTRY ORDERAB LES Performing Organization Address City/[facility]/ZIP Co de Phone Number [facility] [place] [address] * Reticulocyte Count (11/08/2015 8:49 AM EDT) Pathologist [facility] Reticulocyte % 1.8 0.5 - 2.4 % [...] MD HEMATOLOGY ORDERA BLES Performing Organization Address City/[facility]/ZIP Co de Phone Number [facility] [place] [address] * Cholesterol, total (11/08/2015 8:49 AM EDT) Cholesterol, Total 187 <=199 mg/dL [facility] Comment: Recommendations of the NCEP Adult Treatment Panel for the following risk cutoff thresholds for the [place] population: Desirable: <200 mg/dL Borderline High: 200-239 mg/dL High: > or = 240 mg/dL Blood specimen (specimen) 11/08/2015 8:49 AM EDT 11/08/2015 8:53 AM EDT Narrative Resulting Agency Comment Spec In Lab Tal Eagle MD CHEMISTRY ORDERAB LES Performing Organization Address [facility] [[email or web address]] Co de Phone Number [facility] [place] [address] documented in this encounter Visit Diagnoses Diagnosis Kidney replaced by transplant documented in this encounter Care Teams Liability Claims Representative Relationship Specialty Start Date End Date Urbano Denis DO [address] [place] [address] PCP - General 09/03/12 03/17/22 Ruchi Valles RN Nurse Clinic Transplant Surgery 07/30/15 documented as of this encounter
--- OUTSIDE RECORDS SUMMARY | 2024-02-14 11:35 | XMS_ITS | Encounter Summary ---
Author Organization [facility] [place] [address] Care Team Providers Care Radio Repairer Name Role Phone AdeelUrbano toscano Primary Care Provider [phone] Encounter Details Date Type Department Care Team (Late st Contact Info) Description 10/11/2015 Orders [place] [phone] Tulio Marcelo MD [facility] [place] [address] Hepatitis C virus infection without hepatic coma, [...] EDT Hospital Encounter Non-Invasive [place] [phone] Arrived documented as of this encounter Results * Hepatitis C RNA, quantitative, PCR (01/04/2016 1:55 PM EDT) HCV Viral Load 516,252 IU/mL [facility] HCV Viral Load Result: 574000 IU/mL Indication for Study: Hepatitis C Infection Analysis: A quantitiative real time reverse transcriptase PCR assay was performed on extracted viral RNA for the purpose of quantification. Sample: plasma (1 mL minimum volume) Method: Kirsten June TaqMAN 48 HCV Linear Range: 15 IU/mL - 100,000,000IU/mL (95% CI) Note: This assay is being performed in the [facility] [place] [place] Molecular Pathology Laboratory. Gibson Good, Ph.D. Director, Molecular Pathology [facility] Comment: [VERIFIED DATE]01.09.16 Verified By:Fatemeh Garcia (Electronic Signature) Blood specimen (specimen) 01/04/2016 1:55 PM EDT 01/08/2016 8:08 AM EDT Narrative Resulting Agency Comment Spec In Lab Tulio Marcelo MD MOLECULAR ORDERABLE S Performing Organization Address [facility] Co de Phone Number [facility] [place] [address] * Prothrombin Time (01/04/2016 1:55 PM EDT) Prothrombin Time 13.6 12.0 - 15.0 sec [facility] Comment: An INR <2.0 [...] International Normalization Ratio 1.0 0.9 - 1.1 [facility] Blood specimen (specimen) 01/04/2016 1:55 PM EDT 01/04/2016 2:05 PM EDT Narrative Resulting Agency Comment Spec In Lab Tulio Marcelo MD HEMATOLOGY ORDERABL ES Performing Organization Address [facility] Co de Phone Number [facility] [place] [address] * (ABNORMAL) Comprehensive metabolic panel (non-fasting) (01/04/2016 1:55 PM EDT) Glucose 104 65 - 199 mg/dL [facility] Comment:Diabetes: >=200 mg/d L plus symptoms Blood Urea Nitrogen 29(H) 10 - 20 mg/dL [facility] Creatinine 2.69(H) 0.80 - 1.50 mg/dL [facility] Comment: Please note that the pediatric reference intervals supplied above were not validated at [facility] [place]. Results from pediatric patients should be interpreted in conjunction to the patient's age, height and muscle mass. Sodium 138 135 - 145 mmol/L [facility] Potassium 4.1 3.5 - 5.0 mmol/L [facility] Comment: Please note: ??Patients with WBC >100,000 may have falsely elevated Potassium levels. ??For accurate Potassium quantification in these patients send serum separator tube (gold top) for subsequent determinations. ??Contact the Clinical Chemistry Laboratory if there are any questions. Chloride 97(L) 98 - 107 mmol/L [facility] Carbon Dioxide 26 22 - 31 mmol/L [facility] Anion Gap 15 5 - 15 mmol/L [facility] Calcium 9.5 8.5 - 10.5 mg/dL [facility] Protein, Total 7.9 6.1 - 8.0 gm/dL [facility] Albumin 4.2 3.2 - 5.2 gm/dL [facility] Aspartate Aminotransferase 21 0 - 39 unit/L [facility] Alanine Aminotransferase 16 0 - 55 unit/L [facility] Alkaline Phosphatase 66 40 - 120 unit/L [facility] Bilirubin, Total 0.9 0.2 - 1.3 mg/dL [facility] Bilirubin, Direct 0.2 0.0 - 0.3 mg/dL [facility] Est Glomerular Filtration Rate 24(L) >=60 [facility] Comment: This estimated GFR [...] the following links into your internet browser. [email or web address] Blood specimen (specimen) 01/04/2016 1:55 PM EDT 01/04/2016 2:05 PM EDT Narrative Resulting Agency Comment Spec In Lab Tulio Marcelo MD [place] [address] documented in this encounter Visit Diagnoses Diagnosis Hepatitis C virus infection without hepatic coma, unspecified chronicity documented in this encounter Care Teams Radio Repairer Relationship Specialty Start Date End Date Urbano Denis DO [address] [place] [address] PCP - General 09/03/12 03/17/22 Ruchi Valles RN Nurse Clinic Transplant Surgery 07/30/15 documented as of this encounter
--- OUTSIDE RECORDS SUMMARY | 2024-02-14 11:35 | XMS_ITS | Encounter Summary ---
[place] [address] Care Team Providers Care Bank Runner Name Role Phone Urbano Denis DO Primary Care Provider Encounter Details Date Type Department Care Team (Latest Contact Info) Description 11/02/2015 7:38 PM EDT - 11/02/2015 11:59 PM EDT Hospital [place] [phone] Discharge Disposition: Home Social History Tobacco Use [...] Sig Dispensed Refills Start Date End Date tacrolimus (PROGRAF) 1 mg Capsule Take 1 mg by mouth 2 times daily. 05/28/2016 valGANciclovir (VALCYTE) 450 mg Tablet Take 2 tablets by mouth daily for 183 days. 60 tablet 5 10/17/2015 11/08/2015 sulfamethoxazole-trim ethoprim (BACTRIM;SEPTRA) 400-80 mg Tablet Take 1 tablet by mouth daily for 364 days. 30 tablet 11 10/17/2015 01/03/2016 pantoprazole (PROTONIX) 40 mg Tablet, Delayed Release (E.C.) Take 1 tablet by mouth daily. 30 tablet 10/17/2015 11/08/2015 mycophenolate (CELLCEPT) 250 mg Capsule Take 3 capsules by mouth 2 times daily. Kidney replaced by transplant 09/16/2015. Z94.0 180 capsule 11 10/17/2015 11/08/2015 levothyroxine (SYNTHROID) 75 mcg Tablet Take 75 [...] mouth daily. 30 capsule 11 09/17/2015 05/28/2016 potassium phosphate, monobasic, (K-PHOS ORIGINAL) 500 mg Tablet, Soluble Take 1 tablet by mouth 4 times daily. 120 tablet 11 09/17/2015 11/08/2015 clopidogrel (PLAVIX) 75 mg Tablet Take 1 [...] AM EDT Hospital Encounter [place] [address] Arrived documented as of this encounter Procedures Procedure Name Priority Date/Time Associated Diagnosis Comments TACROLIMUS LEVEL Routine 11/02/2015 9:36 AM EDT documented in this encounter Results * Tacrolimus level (11/02/2015 9:36 AM EDT) Tacrolimus 13.2 ng/mL [facility] Comment:Trough therapeutic: 5-15 ng/mL Blood specimen (specimen) Venous Draw / Unknown 11/02/2015 9:36 AM EDT 11/05/2015 7:57 AM EDT Narrative Resulting Agency Comment Spec In Lab Tal Eagle MD CHEMISTRY ORDERAB LES [facility] [place] [address] documented in this encounter Visit Diagnoses Not on filedocumented in this encounter Care Teams Bank Runner Relationship Specialty Start Date End Date Urbano Denis DO [address] [place] [address] PCP - General 09/03/12 03/17/22 Ruchi Valles RN Nurse Clinic Transplant Surgery 07/30/15 documented as of this encounter
--- OUTSIDE RECORDS SUMMARY | 2024-02-14 11:35 | XMS_ITS | Encounter Summary ---
Author Organization Formerly [facility] [place] [address] Care Team Providers Care Admissions Recruiter Name Role Phone Urbano Denis DO Primary Care Provider Encounter Details Date Type Department Care Team (Late st Contact Info) Description 10/02/2015 10:30 AM EDT Office Visit [place] [address] Jennifer Amaro MD [facility] [place] [address] H/O kidney transplant Social History Tobacco Use [...] Sign Reading Time Taken Comments Blood Pressure 97/55 10/02/2015 10:36 AM EDT Pulse 60 10/02/2015 10:36 AM EDT Temperature 36.7 ??C (98 ??F) 10/02/2015 10:36 AM EDT Respiratory Rate 16 10/02/2015 10:36 AM EDT Oxygen Saturation - - Inhaled Oxygen Concentration - - Weight 99.3 kg (219 lb) 10/02/2015 10:36 AM EDT Height 177.8 cm (5' 10) 10/02/2015 10:36 AM EDT Body Mass Index 31.42 10/02/2015 10:36 AM EDT documented in this encounter Progress Notes * Herlinda Bell, RD - 10/02/2015 4:29 PM EDT [facility] Post Transplant Nutrition Follow Up Date: 10/02/2015 Patient: Cody Bolden Transplant Date: 09/16/15 [place] organ UNOS diagnosis: Transplant: Mr. Cody Bolden is a White Not nor 65 y.o. male who is Status Post Kidney transplantation on 09/16/15. Patient was seen by Nutrition services on 10/02/2015 for follow up. Wt Readings from Last 3 Encounters: 10/02/15 99.338 kg (219 lb) 09/28/15 100.064 kg (220 lb 9.6 oz) 09/25/15 103.692 kg (228 lb 9.6 oz) Today's vital signs: BP 97/55 mmHg Pulse 60 Temp(Src) 36.7 ??C (98 ??F) (Oral) Resp 16 Ht 177.8 cm (5' 10) Wt99.338 kg (219 lb) BMI 31.42 kg/m2 Estimated body mass index is 31.42 kg/(m^2) as calculated from the following: Height as of this encounter: 177.8 cm (5' 10). Weight as of this encounter: 99.338 kg (219 lb). Weight pre-Txp: 100.7 Kg (222 lbs) BMI: 31.9 Lab Results Component Value Date HGB 12.2* 10/02/2015 HCT 35.8* 10/02/2015 NA 136 10/02/2015 K 4.5 10/02/2015 BUN 22* 10/02/2015 CREATININE 1.58* 10/02/2015 GLUCOSE 137 10/02/2015 CALCIUM 9.1 10/02/2015 MAGNESIUM 0.53* 10/02/2015 PHOS 2.6 10/02/2015 ALBUMIN 3.8 10/02/2015 Cholesterol (in eD-H the component name CHLPL=Cholesterol) Lab Results Component Value Date CHLPL 188 10/02/2015 Assessment: This scientific technical writer provided patient with a copy of his post-transplant nutrition lab report and reviewed with him. Patient requires 2L IV fluid again today; BP too low (97/55) and urine specific gravity suggestive of dehydration. He will continue with magnesium replacement and may begin phosphorus replacement as well. Plan: Follow up next clinic visit and prn. * Juan Daniel Escalante RN - 10/02/2015 2:[address] Amaro, administered 2L normal saline over 2 hours for dehydration and hypotension. Start time: 10:30a Stop time: 12:30p Total infused: 2,000cc Juan Daniel Escalante RN [facility] Solid Organ Transplant [phone] (Pager: [phone]) * Jennifer Amaro MD - 10/02/2015 10:30 AM EDT Follow-Up: Transplant Clinic Date: 10/02/2015 Patient: Cody Bolden Date of Transplant: 09/16/2015 (Kidney) Transplant Surgeon: History of Present Illness: Cody Bolden is a hepatitis C positive 65-yo male who underwent donor kidney transplantation from a hepatitis C positive donor. He has had prompt recovery of his graft function over thelast week and arrived to clinic last Thursday with Prograf toxicity and mild dehydration. He received2 L IVF in the clinic. He returned for a routine followup appointment today. Despite our conversation last week, he failed to take in enough fluid to maintain his I/O balance. His weight is down again and his SBP is in the 90's today. He tells me that he is not symptomatic. He is making around 2 - 2.5L of urine daily and has fallen behind this UO by 500-1000cc daily since clinic last week. He does not have nausea and has not had emesis. From what I can gather, he is simply not attending to the fluid balance issue. I emphasized the importance and explained that low BP can predispose to renal injury and potential thrombosis which would mean loss of the allograft. Current Meds: Current Outpatient Prescriptions Medication Sig Dispense Refill ??? levothyroxine (SYNTHROID) 75 mcg Tablet Take [...] DATE: 09/16/2015 (Patient taking differently: PATIENT TAKING 3mg BID am 2mg pm) 300 capsule 11 ??? mycophenolate (CELLCEPT) 250 mg Capsule Take 3 capsules by mouth 2 times daily. Kidney replacedby transplant 09/16/2015. Z94.0 180 capsule 11 ??? predniSONE (DELTASONE) 5 mg Tablet Take 4 tablets by mouth daily. 120 tablet 11 ??? DILTiazem (DILTIAZEM CD) 120 mg [...] by mouth daily. 30 tablet 0 ??? carvedilol (COREG) 6.25 mg Tablet Take 12.5 mg by mouth 2 times daily (with meals). ??? ONE TOUCH ULTRA TEST Strip 0 ??? ONE TOUCH ULTRAMINI Kit 0 ??? ONE TOUCH DELICA LANCETS 30 gauge Misc 0 ??? doxazosin (CARDURA) 4 mg Tablet Take 1 tablet by mouth nightly. 90 tablet 3 No current facility-administered medications for this visit. [...] EXTREMITY performed by Jennifer Amaro MD at [facility] OR ??? Pro transplantation of kidney N/A 09/16/2015 @KIDNEY TRANSPLANT, WITHOUT RECIPIENT NEPHRECTOMY performed by Farnko Larkin MD at [facility] OR [...] ROS: Review of Systems Constitutional: Negative for fever and chills. All other systems reviewed and are negative. Vital Signs: There were no vitals taken for this visit. Physical Exam: Objective: Vital signs (most recent): Blood pressure 97/55, pulse 60, temperature 36.7 ??C (98 ??F), temperature source Oral, resp. rate 16, height 177.8 cm (5' 10), weight 99.338 kg (219 lb). General appearance: Comfortable, well-appearing, in no acute distress and not in pain. Abdomen: Abdomen is soft. Tenderness: There is no abdominal tenderness tenderness. Wound: Clean (Enedelia removed and replaced with half length steristrips). There is no drainage. Labs: Lab Results Component Value Date CREATININE 1.58* 10/02/2015 K 4.5 10/02/2015 GLUCOSE 137 10/02/2015 HCT 35.8* 10/02/2015 HGB 12.2* 10/02/2015 WBC 11.9* 10/02/2015 PHOS 2.6 10/02/2015 Assessment: Mr. Bolden is a hepatitis C positive 65-yo male who is s/p donor kidney transplantation from a hepatitis C positive donor. He was dehydrated again today and received 2 L IV normal saline. He continues to assure me that he can meet his PO intake guideline of 2.5 - 3L in order to achieve I/O balance. He is now down to his dry weight and was hypotensive in the clinic today. I stopped his carvedilol and diltiazem. Repeat BP will be taken at the completion of the fluid infusion. Will leave line in today so that we can give fluids again on Thursday if necessary. He may require a temporary period of home IVF's if he can not meet these I/O goals at this stage. Immunosuppression reviewed and adjusted: Prograf 09/05, trough level goal is 8 - 10 Cellcept 750 mg po bid Prednisone 15 mg po qd, decrease to 10 mg po qd on Thursday when he returns to clinic Remains on doxycycline through 10/03 for Lyme prophylaxis. The donor had a tick bite approximately three months prior to that developed a circular rash around it. He was never treated for this and our ID team recommended the above regimen. Followup has been arranged for [address] Marcelo to perform hepatitis C testing and review his upcoming hepatitis C treatment regimen. RTC Thursday with a full set of labs. : JENNIFER AMARO MD documented in this encounter Miscellaneous Notes * Addendum Note - Juan Daniel Escalante, RN - 10/02/2015 2:50 PM EDTAddended by: JUAN DANIEL ESCALANTE on: 10/02/2015 02:50 PM Modules accepted: Orders documented in this encounter Plan of Treatment Upcoming Encounters Date Type Department Care Team (Late st Contact Info) Description 04/15/2024 10:00 AM EDT Hospital Encounter [place] [address] Arrived documented as of this encounter Procedures Procedure Name Priority Date/Time Associated Diagnosis Comments HEMOGRAM STAT 10/02/2015 9:30 AM EDT H/O kidney transplant DIFFERENTIAL, AUTOMATED STAT 10/02/2015 9:30 AM EDT H/O kidney transplant GREEN TUBE HOLD STAT 10/02/2015 9:30 AM EDT TACROLIMUS LEVEL STAT 10/02/2015 9:30 AM EDT H/O kidney transplant URINALYSIS WITH REFLEX CULTURE STAT 10/02/2015 9:30 AM EDT H/O kidney transplant RETICULOCYTE COUNT STAT 10/02/2015 9: 30 AM EDT H/O kidney transplant CBC (WITH DIFF) STAT 10/02/2015 9:30 AM EDT H/O kidney transplant URINE CULTURE STAT 10/02/2015 9:30 AM EDT URIC ACID STAT 10/02/2015 9:30 AM EDT H/O kidney transplant PHOSPHORUS STAT 10/02/2015 9:30 AM EDT H/O kidney transplant MAGNESIUM STAT 10/02/2015 9:30 AM EDT H/O kidney transplant CHOLESTEROL, TOTAL STAT 10/02/2015 9: 30 AM EDT H/O kidney transplant COMPREHENSIVE METABOLIC PANEL STAT 10/02/2015 9:30 AM EDT H/O kidney transplant documented in this encounter Results * Urine culture (10/02/2015 9:30 AM EDT) [facility] Urine Culture No growth (Less than 1,000 cfu/ml). [facility] Urine specimen obtained by clean catch procedure (specimen) 10/02/2015 9:30 AM EDT 10/02/2015 10:31 AM EDT Narrative Resulting Agency Comment Spec In Lab Jennifer mAaro MD MICROBIOLOGY - GENERAL ORDERABLES Performing Organization Address [facility] Co de Phone Number [facility] [place] [address] * Green Tube HOLD (10/02/2015 9:30 AM EDT) [facility] Green Hold Sample in lab. [facility] Blood specimen (specimen) Venous Draw / Unknown 10/02/2015 9:30 AM EDT 10/02/2015 9:53 AM EDT Jennifer Amaro MD CHEMISTRY ORDE RABLES Performing Organization Address [facility]/ZIP Co de Phone Number [facility] [place] [address] * (ABNORMAL) Differential, Automated (10/02/2015 9:30 AM EDT) [facility] Neutrophil % 70.3 % [facility] Neutrophil Absolute 8.39(H) 1.50 - 6.30 x10(3)/mc L [facility] Lymph % 23.1 % [facility] Lymphocytes Abs 2.8 1.0 - 3.6 x10(3)/mc L [facility] Monocyte % 3.4 % [facility] Monocyte Abs 0.4 0.2 - 1.0 x10(3)/[facility] Eos % 2.1 % [facility] Eosinophils Abs 0.2 0.0 - 0.5 x10(3)/[facility] Basophil % 0.6 % [facility] Baso Absolute 0.1 0.0 - 0.2 x10(3)/[facility] Immature Gran % 0.50 % [facility] Comment: Immature granulocytes(IG's)percentage and absolute count will include metamyelocytes, myelocytes, and promyelocytes. Blood smears from CBCs yielding IG's will be scanned manually for concordance. If this scan disagrees with the automated IG or if promyelocytes are noted, a manual differential will be performed. Immature Gran Absolute 0.06(H) 0.00 - 0.05 x10(3)/[facility] Blood specimen (specimen) 10/02/2015 9:30 AM EDT 10/02/2015 9:52 AM EDT Narrative Resulting Agency Comment Spec In Lab Jennifer Amaro MD HEMATOLOGY ORD ERABLES [facility] [place] [address] * (ABNORMAL) Hemogram (10/02/2015 9:30 AM EDT) White Blood Cell 11.9(H) 4.0 - 10.0 x10(3)/[facility] Red Blood Cell 3.82(L) 4.63 - 6.08 x10(6)/[facility] Hemoglobin 12.2(L) 13.7 - 17.5 gm/dL [facility] Hematocrit 35.8(L) 40.0 - 51.0 % [facility] Mean Cell Volume 93.7(H) 79.0 - 92.0 fL [facility] Mean Cell Hemoglobin 31.9 25.6 - 32.2 pg [facility] Mean Cell Hemoglobin Concentration 34.1 32.0 - 36.5 gm/dL [facility] Platelet 250 145 - 370 x10(3)/mc L [facility] RDW Standard Deviation 52.2(H) 35.0 - 46.0 fL [facility] RDW coefficient of variation 15.3(H) 10.9 - 14.4 % [facility] Mean Platelet Volume 9.6 9.0 - 12.0 fL [facility] Blood specimen (specimen) 10/02/2015 9:30 AM EDT 10/02/2015 9:52 AM EDT Narrative Resulting Agency Comment Spec In Lab Jennifer Amaro MD HEMATOLOGY ORD ERABLES Performing Organization Address [facility]/ZIP Co de Phone Number [facility] [place] [address] * Tacrolimus level (10/02/2015 9:30 AM EDT) Tacrolimus 8.6 ng/mL [facility] Comment:Trough therapeutic: 5-15 ng/mL Blood specimen (specimen) 10/02/2015 9:30 AM EDT 10/02/2015 11:30 AM EDT Narrative Resulting Agency Comment Spec In Lab Jennifer Amaro MD CHEMISTRY ORDE RABLENORE [facility] [place] [address] * (ABNORMAL) Urinalysis with reflex Culture (10/02/2015 9:30 AM EDT) Glucose, Urine Dipstick Negative Negative mg/dL [facility] Protein, Urine Dipstick Negative Negative mg/dL [facility] Leukocytes, Urine Dipstick Negative Negative [facility] Appearance, Urine Dipstick Clear Clear [facility] Specific [place] Urine Automated 1.026 1.002 - 1.030 [facility] Color, Urine Dipstick Yellow Yellow [facility] RBC, Urine 4(H) 0 - 3 /HPF [facility] WBC, Urine 14(H) 0 - 3 /HPF [facility] WBC Clumps, Urine Rare(A) None /HPF [facility] Reflex to Culture Yes [facility] Urine specimen obtained by clean catch procedure (specimen) 10/02/2015 9:30 AM EDT 10/02/2015 9:43 AM EDT Narrative Resulting Agency Comment Spec In Lab Jennifer Amaro MD URINE ORDERABL ES [facility] [place] [address] * (ABNORMAL) Reticulocyte Count (10/02/2015 9:30 AM EDT) Reticulocyte % 3.0(H) 0.5 - 2.4 % [facility] Retic Abs # 0.110(H) 0.027 - 0.095 x10(6)/mc L [facility] Immature Retic% 3.2 2.3 - 15.9 % [facility] Reticulated Hgb 36.7 28.5 - 38.9 pg [facility] Immature Plt % 0.6 0.0 - 7.4 % [facility] Blood specimen (specimen) 10/02/2015 9:30 AM EDT 10/02/2015 9:52 AM EDT Narrative Resulting Agency Comment Spec In Lab Jennifer Amaro MD HEMATOLOGY ORD ERABLES Performing Organization Address City/[facility]/ZIP Co de Phone Number [facility] [place] [address] * Uric acid (10/02/2015 9:30 AM EDT) Uric Acid 5.3 3.5 - 8.5 mg/dL [facility] Blood specimen (specimen) 10/02/2015 9:30 AM EDT 10/02/2015 9:52 AM EDT Narrative Resulting Agency Comment Spec In Lab Jennifer Amaro MD CHEMISTRY ORDTiny JENNINGS Performing Organization Address [facility] Co de Phone Number [facility] [place] [address] * Phosphorus (10/02/2015 9:30 AM EDT) Phosphorus 2.6 2.5 - 4.5 mg/dL [facility] Blood specimen (specimen) 10/02/2015 9:30 AM EDT 10/02/2015 9:52 AM EDT Narrative Resulting Agency Comment Spec In Lab Jennifer Amaro MD CHEMISTRY ORDTiny JENNINGS Performing Organization Address [facility] Co de Phone Number [facility] [place] [address] * (ABNORMAL) Magnesium (10/02/2015 9:30 AM EDT) Magnesium 0.53(L) 0.69 - 1.07 mmol/L [facility] Blood specimen (specimen) 10/02/2015 9:30 AM EDT 10/02/2015 9:52 AM EDT Narrative Resulting Agency Comment Spec In Lab Jennifer Amaro MD CHEMISTRY ROCHELLE JENNINGS [facility] [place] [address] * (ABNORMAL) Comprehensive metabolic panel (non-fasting) (10/02/2015 9:30 AM EDT) Glucose 137 65 - 199 mg/dL [facility] Comment:Diabetes: >=200 mg/d L plus symptoms Blood Urea Nitrogen 22(H) 10 - 20 mg/dL [facility] Creatinine 1.58(H) 0.80 - 1.50 mg/dL [facility] Comment: Please note that the pediatric reference intervals supplied above were not validated at [facility]. Results from pediatric patients should be interpreted in conjunction to the patient's age, height and muscle mass. Sodium 136 135 - 145 mmol/L [facility] Potassium 4.5 3.5 - 5.0 mmol/L [facility] Comment: Please note: ??Patients with WBC >100,000 may have falsely elevated Potassium levels. ??For accurate Potassium quantification in these patients send serum separator tube (gold top) for subsequent determinations. ??Contact the Clinical Chemistry Laboratory if there are any questions. Chloride 98 98 - 107 mmol/L [facility] Carbon Dioxide 23 22 - 31 mmol/L [facility] Anion Gap 15 5 - 15 mmol/L [facility] Calcium 9.1 8.5 - 10.5 mg/dL [facility] Protein, Total 6.6 6.1 - 8.0 gm/dL [facility] Albumin 3.8 3.2 - 5.2 gm/dL [facility] Aspartate Aminotransferase 15 0 - 39 unit/L [facility] Alanine Aminotransferase 25 0 - 55 unit/L [facility] Alkaline Phosphatase 78 40 - 120 unit/L [facility] Bilirubin, Total 0.8 0.2 - 1.3 mg/dL [facility] Bilirubin, Direct 0.2 0.0 - 0.3 mg/dL [facility] Est Glomerular Filtration Rate 44(L) >=60 [facility] Comment: [...] the following links into your internet browser. [email or web address] Blood specimen (specimen) 10/02/2015 9:30 AM EDT 10/02/2015 9:52 AM EDT Narrative Resulting Agency Comment Spec In Lab Jennifer Amaro MD CHEMISTRY ORDTiny JENNINGS Performing Organization Address City/[facility]/ZIP Co de Phone Number [facility] [place] [address] * Cholesterol, total (10/02/2015 9:30 AM EDT) Cholesterol, Total 188 <=199 mg/dL [facility] Comment: Recommendations of the NCEP Adult Treatment Panel for the following risk cutoff thresholds for the [place] population: Desirable: <200 mg/dL Borderline High: 200-239 mg/dL High: > or = 240 mg/dL Blood specimen (specimen) 10/02/2015 9:30 AM EDT 10/02/2015 9:52 AM EDT Narrative Resulting Agency Comment Spec In Lab Jennifer Amaro MD CHEMISTRY ROCHELLE JENNINGS Performing Organization Address City/[facility]/ZIP Co de Phone Number [facility] [place] [address] documented in this encounter Visit Diagnoses Diagnosis H/O kidney transplant Kidney replaced by transplant documented in this encounter Administered Medications Inactive Administered Medications - up to 3 most recent administrations Medication Order MAR Action Action Date Dose Rate Site sodium chloride injection 2,000 mL 2,000 mL, Intravenous, ONCE, 1 dose, On Thu10/02/15 at 1515, 2L over 2 hours., Routine Given 10/02/2015 10:30 AM EDT 2,000 mLs documented in this encounter Care Teams Admissions Recruiter Relationship Specialty Start Date End Date Urbano Denis DO [address] [place] [address] [address] [facility] [address] [place] [address] PCP - General 09/03/12 03/17/22 Ruchi Valles RN Nurse Clinic Transplant Surgery 07/30/15 documented as of this encounter
--- OUTSIDE RECORDS SUMMARY | 2024-02-14 11:35 | XMS_ITS | Encounter Summary ---
[place] [address] Care Team Providers Care Shearing Machine Tender Name Role Phone AdeelUrbano toscano Primary Care Provider [phone] Encounter Details Date Type Department Care Team (Late st Contact Info) Description 10/01/2015 Telephone [place] [id number] Samia Escalante, RN Social History Tobacco Use [...] Telephone Encounter - Samia Escalante RN - 10/01/2015 2:51 PM EDT Called pt x 2 for daily check-in. No answer, left message asking for call-back. Samia Escalante RN [facility] Solid Organ Transplant [phone] (Pager: [phone]) documented in this encounter Plan of Treatment Upcoming Encounters Date Type Department Care Team (Late st Contact Info) Description 04/15/2024 10:00 AM EDT Hospital Encounter Non-Invasive Cardiology Lab [place] [address] Arrived documented as of this encounter Visit Diagnoses Not on filedocumented in this encounter Care Teams Shearing Machine Tender Relationship Specialty Start Date End Date Urbano Denis DO [address] [place] [address] PCP - General 09/03/12 03/17/22 Ruchi Valles RN Nurse Clinic Transplant Surgery 07/30/15 documented as of this encounter
--- OUTSIDE RECORDS SUMMARY | 2024-02-14 11:35 | XMS_ITS | Encounter Summary ---
[place] [address] Care Team Providers Care Principal Web Developer Name Role Phone Urbano Denis DO Primary Care Provider Encounter Details Date Type Department Care Team (Latest Contact Info) Description 10/19/2015 7:23 PM EDT - 10/19/2015 11:59 PM EDT Hospital [place] [address] Discharge Disposition: Home Social History Tobacco Use [...] tablet by mouth daily. 30 tablet 11 10/17/2015 11/08/2015 mycophenolate (CELLCEPT) 250 mg Capsule Take 3 capsules by mouth 2 times daily. Kidney replaced by transplant 09/16/2015. Z94.0 180 capsule 11 10/17/2015 11/08/2015 predniSONE (DELTASONE) 5 mg Tablet Take 5 mg by mouth daily. 10/19/2015 10/25/2015 levothyroxine (SYNTHROID) 75 mcg Tablet Take 75 mcg by mouth daily. 04/23/2016 oxyCODONE (ROXICODONE) 5 mg Tablet Take 1-2 tablets every 6 hours as needed for pain. 50 tablet 0 09/25/2015 10/26/2015 acetaminophen (TYLENOL) 325 mg Tablet Take 2 tablets by mouth every 4 hours as needed for Pain. 30 tablet 1 09/20/2015 04/23/2016 polyethylene glycol (MIRALAX) 17 gram Powder in Packet Take 17 g by mouth daily. 14 each 0 09/20/2015 01/03/2016 nystatin (MYCOSTATIN) 100,000 unit/mL Suspension Swish and swallow 5mL after meals and at bedtime. 473 mL 1 09/17/2015 10/28/2015 PROGRAF 1 mg Capsule Take 5 capsules by mouth twice daily. KIDNEY TRANSPLANT Z94.0. TRANSPLANT DATE: 09/16/2015 300 capsule 11 09/17/2015 10/26/2015 DILTiazem (DILTIAZEM CD) 120 mg Capsule, Sust. [...] EDT Hospital Encounter Non-Invasive [place] [address] Arrived documented as of this encounter Procedures Procedure Name Priority Date/Time Associated Diagnosis Comments TACROLIMUS LEVEL Routine 10/19/2015 12:0 5 PM EDT documented in this encounter Results * Tacrolimus level (10/19/2015 12:05 PM EDT) Tacrolimus 7.9 ng/mL [facility] Comment:Trough therapeutic: 5-15 ng/mL Blood specimen (specimen) Venous Draw / Unknown 10/19/2015 12:05 PM EDT 10/22/2015 8:02 AM EDT Narrative Resulting Agency Comment Spec In Lab Tal Eagle MD CHEMISTRY ORDERAB LES [facility] [place] [id number] documented in this encounter Visit Diagnoses Not on filedocumented in this encounter Care Teams Principal Web Developer Relationship Specialty Start Date End Date Urbano Denis DO [address] [place] [address] PCP - General 09/03/12 03/17/22 Ruchi Valles RN Nurse Clinic Transplant Surgery 07/30/15 documented as of this encounter
--- OUTSIDE RECORDS SUMMARY | 2024-02-14 11:35 | XMS_ITS | Encounter Summary ---
[place] [address] Care Team Providers Care Cell Assembly Pinner Name Role Phone Urbano Denis DO Primary Care Provider Encounter Details Date Type Department Care Team (Latest Contact Info) Description 10/26/2015 7:50 AM EDT Laboratory Appointment Lab [address] [place] [phone] H/O kidney transplant Social History Tobacco Use [...] AM EDT Hospital Encounter Non-[place] [phone] Arrived documented as of this encounter Procedures Procedure Name Priority Date/Time Associated Diagnosis Comments URINALYSIS WITH REFLEX CULTURE STAT 10/26/2015 8:13 AM EDT H/O kidney transplant URINE CULTURE STAT 10/26/2015 8:13 AM EDT HEMOGRAM STAT 10/26/2015 8:10 AM EDT H/O kidney transplant DIFFERENTIAL, AUTOMATED STAT 10/26/2015 8:10 AM EDT H/O kidney transplant TACROLIMUS LEVEL STAT 10/26/2015 8:10 AM EDT H/O kidney transplant CBC (WITH DIFF) STAT 10/26/2015 8:10 AM EDT H/O kidney transplant URIC ACID STAT 10/26/2015 8:10 AM EDT H/O kidney transplant PHOSPHORUS STAT 10/26/2015 8:10 AM EDT MAGNESIUM STAT 10/26/2015 8:10 AM EDT H/O kidney transplant CHOLESTEROL, TOTAL STAT 10/26/2015 8: 10 AM EDT COMPREHENSIVE METABOLIC PANEL STAT 10/26/2015 8:10 AM EDT H/O kidney transplant documented in this encounter Results * (ABNORMAL) Urine culture (10/26/2015 8:13 AM EDT) Urine Culture 1,000-9,000 cfu/ml Gram Positive organisms , probable contaminant(A ) [facility] Urine specimen (specimen) 10/26/2015 8:13 AM EDT 10/26/2015 8:45 AM EDT Narrative Resulting Agency Comment Spec In Lab Tal Eagle MD MICROBIOLOGY - [facility] ORDERABLES [facility] [address] [place] [address] * (ABNORMAL) Urinalysis with reflex Culture (10/26/2015 8:13 AM EDT) Glucose, Urine Dipstick Negative Negative mg/dL [facility] Protein, Urine Dipstick 30(A) Negative mg/dL [facility] Bilirubin, [...] [facility] pH, Urn (dipstick) 5.0 5.0 - 8.0 [facility] Blood, Urine Dipstick Small(A) Negative mg/dL [facility] Ketone, Urine Dipstick Negative Negative mg/dL [facility] Nitrite, Urine Dipstick Negative Negative [facility] Leukocytes, Urine Dipstick Trace(A) Negative [facility]ORAT[facility] Appearance, Urine Dipstick Clear Clear [facility] Specific [place] Urine Automated 1.023 1.002 - 1.030 [facility] Color, Urine Dipstick Yellow Yellow [facility] RBC, Urine 5(H) 0 - 3 /HPF [facility] WBC, Urine 10(H) 0 - 3 /HPF [facility] Squamous Epithelial Cells, Urine <1 <=4 /HPF [facility] Hyaline Casts, Urine 3(H) 0 - 2 /LPF [facility] Reflex to Culture Yes [facility] Urine specimen (specimen) 10/26/2015 8:13 AM EDT 10/26/2015 8:17 AM EDT Narrative Resulting Agency Comment Spec In Lab Tal Eagle MD URINE ORDERABLES [facility] [place] [address] * (ABNORMAL) Phosphorus (10/26/2015 8:10 AM EDT) Phosphorus 2.4(L) 2.5 - 4.5 mg/dL [facility] Blood specimen (specimen) Venous Draw / Unknown 10/26/2015 8:10 AM EDT 10/26/2015 8:21 AM EDT Narrative Resulting Agency Comment Spec In Lab Tal Eagle MD CHEMISTRY ORDERAB LES Performing Organization Address [facility] Co de Phone Number [facility] [place] [address] * (ABNORMAL) Cholesterol, total (10/26/2015 8:10 AM EDT) [facility] Cholesterol, Total 261(H) <=199 mg/dL [facility] Comment: Recommendations of the NCEP Adult Treatment Panel for the following risk cutoff thresholds for the [place] population: Desirable: <200 mg/dL Borderline High: 200-239 mg/dL High: > or = 240 mg/dL Blood specimen (specimen) Venous Draw / Unknown 10/26/2015 8:10 AM EDT 10/26/2015 8:21 AM EDT Narrative Resulting Agency Comment Spec In Lab Tal Eagle MD CHEMISTRY ORDERAB LES Performing Organization Address [facility] Co de Phone Number [facility] [place] [address] * (ABNORMAL) Differential, Automated (10/26/2015 8:10 AM EDT) [facility] Neutrophil % 77.6 % [facility] Neutrophil Absolute 6.76(H) 1.50 - 6.30 x10(3)/mc L [facility] Lymph % 16.5 % [facility] Lymphocytes Abs 1.4 1.0 - 3.6 x10(3)/mc L [facility] Monocyte % 4.2 % [facility] Monocyte Abs 0.4 0.2 - 1.0 x10(3)/mc L [facility] Eos % 0.6 % [facility] Eosinophils Abs 0.0 0.0 - 0.5 x10(3)/mc L [facility] Basophil % 0.2 % [facility] Baso Absolute 0.0 0.0 - 0.2 x10(3)/mc L [facility] Immature Gran % 0.90 % [facility] Comment: Immature granulocytes(IG's)percentage and absolute count will include metamyelocytes, myelocytes, and promyelocytes. Blood smears from CBCs yielding IG's will be scanned manually for concordance. If this scan disagrees with the automated IG or if promyelocytes are noted, a manual differential will be performed. Immature Gran Absolute 0.08(H) 0.00 - 0.05 x10(3)/mc L [facility] Blood specimen (specimen) 10/26/2015 8:10 AM EDT 10/26/2015 8:19 AM EDT Narrative Resulting Agency Comment Spec In Lab Tal Eagle MD HEMATOLOGY ORDERA BLES Performing Organization Address City/State/[facility] Co de Phone Number [facility] [place] [address] * (ABNORMAL) Hemogram (10/26/2015 8:10 AM EDT) White Blood Cell 8.7 4.0 - 10.0 x10(3)/ L [facility] Red Blood Cell 4.58(L) 4.63 - 6.08 x10(6)/mc L [facility] Hemoglobin 15.0 13.7 - 17.5 gm/dL [facility] Hematocrit 42.1 40.0 - 51.0 % [facility] Mean Cell Volume 91.9 79.0 - 92.0 fL [facility] Mean Cell Hemoglobin 32.8(H) 25.6 - 32.2 pg [facility] Mean Cell Hemoglobin Concentration 35.6 32.0 - 36.5 gm/dL [facility] Platelet 295 145 - 370 x10(3)/mc L [facility] RDW Standard Deviation 52.0(H) 35.0 - 46.0 fL [facility] RDW coefficient of variation 15.6(H) 10.9 - 14.4 % [facility] Mean Platelet Volume 9.5 9.0 - 12.0 fL [facility] Blood specimen (specimen) 10/26/2015 8:10 AM EDT 10/26/2015 8:19 AM EDT Narrative Resulting Agency Comment Spec In Lab Tal Eagle MD HEMATOLOGY ORDERA BLES [facility] [place] [address] * (ABNORMAL) Comprehensive metabolic panel (non-fasting) (10/26/2015 8:10 AM EDT) Glucose 176 65 - 199 mg/dL [facility] Comment:Diabetes: >=200 mg/d L plus symptoms Blood Urea Nitrogen 17 10 - 20 mg/dL [facility] Creatinine 1.49 0.80 - 1.50 mg/dL [facility] Comment: Please note that the pediatric reference intervals supplied above were not validated at [facility]. Results from pediatric patients should be interpreted in conjunction to the patient's age, height and muscle mass. Sodium 138 135 - 145 mmol/L [facility] Potassium 4.2 3.5 - 5.0 mmol/L [facility] Comment: Please note: ??Patients with WBC >100,000 may have falsely elevated Potassium levels. ??For accurate Potassium quantification in these patients send serum separator tube (gold top) for subsequent determinations. ??Contact the Clinical Chemistry Laboratory if there are any questions. Chloride 99 98 - 107 mmol/L [facility] Carbon Dioxide 22 22 - 31 mmol/L [facility] Anion Gap 17(H) 5 - 15 mmol/L [facility] Calcium 9.2 8.5 - 10.5 mg/dL [facility] Protein, Total 7.5 6.1 - 8.0 gm/dL [facility] Albumin 4.3 3.2 - 5.2 gm/dL [facility] Aspartate Aminotransferase 19 0 - 39 unit/L [facility] Alanine Aminotransferase 29 0 - 55 unit/L [facility] Alkaline Phosphatase 86 40 - 120 unit/L [facility] Bilirubin, Total 1.0 0.2 - 1.3 mg/dL [facility] Bilirubin, Direct 0.2 0.0 - 0.3 mg/dL [facility] Est Glomerular Filtration Rate 47(L) >=60 [facility] Comment: This estimated [...] the following links into your internet browser. [email or web address] Blood specimen (specimen) 10/26/2015 8:10 AM EDT 10/26/2015 8:19 AM EDT Narrative Resulting Agency Comment Spec In Lab Tal Eagle MD CHEMISTRY ORDERAB LES Performing Organization Address City/[facility] Co de Phone Number [facility] [place] [phone] * Uric acid (10/26/2015 8:10 AM EDT) Uric Acid 7.8 3.5 - 8.5 mg/dL [facility] Blood specimen (specimen) 10/26/2015 8:10 AM EDT 10/26/2015 8:19 AM EDT Narrative Resulting Agency Comment Spec In Lab Tal Eagle MD CHEMISTRY ORDERAB LES Performing Organization Address City/[facility]/ZIP Co de Phone Number [facility] [place] [address] * Tacrolimus level (10/26/2015 8:10 AM EDT) Tacrolimus 11.4 ng/mL [facility] Comment:Trough therapeutic: 5-15 ng/mL Blood specimen (specimen) 10/26/2015 8:10 AM EDT 10/26/2015 10:39 AM EDT Narrative Resulting Agency Comment Spec In Lab Tal Eagle MD CHEMISTRY ORDERAB LES Performing Organization Address City/[facility]/ZIP Co de Phone Number [facility] [place] [address] * (ABNORMAL) Magnesium (10/26/2015 8:10 AM EDT) Magnesium 0.58(L) 0.69 - 1.07 mmol/L [facility] Blood specimen (specimen) 10/26/2015 8:10 AM EDT 10/26/2015 8:19 AM EDT Narrative Resulting Agency Comment Spec In Lab Tal Eagle MD CHEMISTRY ORDERAB LES Performing Organization Address [facility] Co de Phone Number [facility] [place] [address] documented in this encounter Visit Diagnoses Diagnosis H/O kidney transplant Kidney replaced by transplant documented in this encounter Care Teams Cell Assembly Pinner Relationship Specialty Start Date End Date Urbano Denis DO [address] [place] [address] PCP - General 09/03/12 03/17/22 Ruchi Valles RN Nurse Clinic Transplant Surgery 07/30/15 documented as of this encounter
--- OUTSIDE RECORDS SUMMARY | 2024-02-14 11:35 | XMS_ITS | Encounter Summary ---
Author Organization [facility] [place] [address] Care Team Providers Care Automotive Repair Technician Name Role Phone Urbano Denis DO Primary Care Provider Encounter Details Date Type Department Care Team (Late st Contact Info) Description 10/12/2015 10:00 AM EDT Office Visit Solid [place] [address] Que Amaro MD [facility] [place] [address] Kidney replaced by transplant Social History Tobacco [...] Sign Reading Time Taken Comments Blood Pressure 141/74 10/12/2015 10:49 AM EDT Pulse 64 10/12/2015 10:49 AM EDT Temperature - - Respiratory Rate 16 10/12/2015 10:49 AM EDT Oxygen Saturation 100% 10/12/2015 10:49 AM EDT Inhaled Oxygen Concentration - - Weight 100 kg (220 lb 6.4 oz) 10/12/2015 10:49 A M EDT Height 177.8 cm (5' 10) 10/12/2015 10:49 AM EDT Body Mass Index 31.62 10/12/2015 10:49 AM EDT documented in this encounter Progress Notes * Merle Alva MD - 10/12/2015 11:54 AM EDT Follow-Up: Transplant Clinic Date: 10/12/2015 Patient: Cody Bolden Date of Transplant: 09/16/2015 (Kidney) Transplant Surgeon: Dr. Larkin History of Present Illness: Cody Bolden is s/p DD Kidney transplant on 09/16/2015 (Kidney). 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 He presents for evaluation and management after his transplant procedure. He states he is doing well with his hydration. He had required IVF administration during his former clinic visits and he has been much more diligent about hydrating adequately. He reports his weights are stable, his blood pressures have been sharda good range. Current Meds: Current Outpatient Prescriptions Medication Sig Dispense Refill ??? [START ON 10/19/2015] predniSONE (DELTASONE) 5 mg Tablet Take 5 mg by mouth daily. ??? predniSONE (DELTASONE) 5 mg Tablet Take 10 mg by mouth daily. ??? levothyroxine (SYNTHROID) [...] Z94.0. TRANSPLANT DATE: 09/16/2015 (Patient taking differently: Take 2 mg by mouth 2 times daily.) 300 capsule 11 ??? mycophenolate (CELLCEPT) 250 [...] TOUCH ULTRAMINI Kit 0 ??? ONE TOUCH [employer] LANCETS 30 gauge Misc 0 No current [...] EXTREMITY performed by Que Amaro MD at [facility] OR ??? Pro transplantation of kidney N/A 09/16/2015 @KIDNEY TRANSPLANT, WITHOUT RECIPIENT NEPHRECTOMY performed by Franko Larkin MD at [facility] OR ??? Pro transplant, prep cadaver renal graft N/A 09/16/2015 @PREPARATION CADAVERIC RENAL ALLOGRAFT performed by Franko Larkin MD at [facility] OR ??? N/A 09/16/2015 ORGAN ACQUISITION RENAL, CADAVERIC performed by Franko Larkin MD at [facility] OR Family History: No family history on file. Social History: History Substance Use Topics ??? Smoking status: Former Smoker Types: Cigars ??? Smokeless tobacco: Never Used Comment: cigars, only sometimes ??? Alcohol Use: No ROS: Review of Systems Vital Signs: BP 141/74 mmHg Pulse 64 Resp 16 Ht 177.8 cm (5' 10) Wt 99.973 kg (220 lb 6.4 oz) BMI 31.62 kg/m2 SpO2 100% Physical Exam: Objective: Vital signs (most recent): Blood pressure 141/74, pulse 64, resp. rate 16, height 177.8 cm (5' 10), weight 99.973 kg (220 lb 6.4 oz), SpO2 100 %. General appearance: Comfortable and well-appearing. Lungs: Normal effort. Breath sounds normal. Heart: Normal rate. Regular rhythm. Abdomen: Abdomen is soft. No distension. Tenderness: There is no abdominal tenderness tenderness. Wound: Clean. There is no dehiscence. There is no drainage. Extremities: There is normal range of motion. Neurological: The patient is alert and oriented to person, place and time. Drain: No Labs: Lab Results Component Value Date CREATININE 1.47 10/12/2015 K 3.6 10/12/2015 GLUCOSE 134 10/12/2015 HCT 37.7* 10/12/2015 HGB 13.0* 10/12/2015 WBC 7.6 10/12/2015 PHOS 2.4* 10/12/2015 Assessment: Cody Bolden is doing well after transplant. During the visit, I examined his wound, reviewed his immunosuppression, discussed pain control, and instructed Mr. Cody Bolden regarding hydration and nutrition. I identified the following additional issues affecting his post-transplant courseNone. Plan: 1. Other Category: Prograf: Yes, 2mg/2mg no changes made today in clinic Prednisone: Yes, taper to 10mg daily for 1 week and then 5mg daily for 1 week and then stop MMF: Yes, 750mg BID , no changes made today in clinic 2. Blood Pressure management: No blood pressure medications with stable blood pressure 3. Calcium and phosphorus balance reviewed. Continue supplementation: Yes, K Phos 1 tab TID 4. Magnesium balance reviewed. Yes, 2 tabs QID 5. Pharmacy needs addressed. No concerns today. 6. Return to clinic: 2 weeks MD: MERLE SCOTT MD I have seen the patient and reviewed the resident's above history and I agree with the details as written. The assessment and plan were formulated in discussion with me and I agree with them as documented. Mr. Bolden is doing very well today. He has been able to increase his PO intake and is now maintaining I/O balance with a stable weight. Cr level stable at 1.4 today. His UA shows pyuria but he hasbeen asymptomatic and has had no recent fevers or rigors. Followup urine culture. Pain is well controlled and he has returned to normal activities. I reviewed his immunosuppression today: Prograf 2/2, trough level pending and goal level range is 8 - 10 Cellcept 750 mg po bid No steroids He is being scheduled to see Dr. Marcelo for followup after the Hep C positive donor renal transplantation in this Hep C positive recipient. I spoke with Samia this morning and she told me that Dr. Marcelo has revised his followup plan and would like to see him at 3 months rather than 1 month following transplantation. We are arranging for this appointment. RTC in two weeks. documented in this encounter Plan of Treatment Upcoming Encounters Date Type Department Care Team (Late st Contact Info) Description 04/15/2024 10:00 AM EDT Hospital Encounter Non[place] [address] Arrived documented as of this encounter Procedures Procedure Name Priority Date/Time Associated Diagnosis Comments URINALYSIS WITH REFLEX CULTURE STAT 10/12/2015 10:00 AM EDT Kidney replaced by transplant URINE CULTURE STAT 10/12/2015 10:00 AM EDT PROTEIN/CREATININE RATIO, URINE STAT 10/12/2015 9:50 AM EDT Kidney replaced by transplant documented in this encounter Results * (ABNORMAL) Urine culture (10/12/2015 10:00 AM EDT) Urine Culture 10,000-49,000 cfu/ml Coagulase negative Staphylococcus species Susceptibility testing not routinely performed for Staphylococcus species and other Gram Positive organisms from urine. 10,000-49,000 cfu/ml Enterococcus species (A) [facility] Organism Enterococcus species(A) [facility] Organism Coagulase negative Staphylococcus species(A) [facility] Urine specimen obtained by clean catch procedure (specimen) 10/12/2015 10:00 AM EDT 10/12/2015 10:44 AM EDT Narrative Resulting Agency Comment [...] Resistant Enterococcus species Vancomycin MICROSCAN METHOD Sensitive Que Amaro MD MICROBIOLOGY - GENERAL ORDERABLES Performing Organization Address City/State/[facility] Co de Phone Number [facility] [place] [address] * (ABNORMAL) Urinalysis with reflex Culture (10/12/2015 10:00 AM EDT) Glucose, Urine Dipstick Negative Negative mg/dL [facility] Protein, Urine Dipstick Negative Negative mg/dL [facility] Bilirubin, Urine Dipstick Negative Negative mg/dL [facility] Comment: Clinical correlation required for positive Urine Bilirubin results as false positive may occur with some drugs and drug related products. If a false positive is suspected a serum total bilirubin should be considered if clinically indicated. Urobilinogen, Urine Dipstick Normal Normal mg/dL [facility] pH, Urn (dipstick) 5.0 5.0 - 8.0 [facility] Blood, Urine Dipstick Small(A) Negative mg/dL [facility] Ketone, Urine Dipstick Negative Negative mg/dL [facility] Nitrite, Urine Dipstick Negative Negative [facility] Leukocytes, Urine Dipstick Trace(A) Negative [facility] Appearance, Urine Dipstick Clear Clear [facility] Specific [place] Urine Automated 1.013 1.002 - 1.030 [facility] Color, Urine Dipstick Yellow Yellow [facility] RBC, Urine <1 0 - 3 /HPF [facility] WBC, Urine 11(H) 0 - 3 /HPF [facility] WBC Clumps, Urine Rare(A) None /HPF [facility] Bacteria, Urine Rare(A) None /HPF [facility] Transitional Epithelial Cells, Urine 1 <=1 /HPF [facility] Reflex to Culture Yes [facility] Urine specimen obtained by clean catch procedure (specimen) 10/12/2015 10:00 AM EDT 10/12/2015 10:00 AM EDT Narrative Resulting Agency Comment Spec In Lab Que Amaro MD URINE ORDERABL ES [facility] [place] [address] * Protein/Creatinine Ratio, urine (10/12/2015 9:50 AM EDT) Creatinine, Urine 69 mg/dL [facility] Protein, Urine 9 0 - 12 mg/dL [facility] Protein / Creatinine Ratio, Urine 0.1 ratio [facility] Urine specimen (specimen) 10/12/2015 9:50 AM EDT 10/12/2015 10:03 AM EDT Narrative Resulting Agency Comment Spec In Lab Que Amaro MD URINE ORDERABL ES [facility] [place] [address] documented in this encounter Visit Diagnoses Diagnosis Kidney replaced by transplant documented in this encounter Care Teams Automotive Repair Technician Relationship Specialty Start Date End Date Urbano Denis DO [address] [place] [address] PCP - General 09/03/12 03/17/22 Ruchi Valles RN Nurse Clinic Transplant Surgery 07/30/15 documented as of this encounter
--- OUTSIDE RECORDS SUMMARY | 2024-02-14 11:35 | XMS_ITS | Encounter Summary ---
Author Organization [facility] [place] [address] Care Team Providers Care Technical Recruiter Name Role Phone Urbano Denis DO Primary Care Provider [phone] Encounter Details Date Type Department Care Team (Late st Contact Info) Description 10/05/2015 Telephone [place] [phone] Marisela Metcalf, RN Social History Tobacco Use [...] Telephone Encounter - Marisela Metcalf LPN - 10/05/2015 3:39 PM EDT Prograf Dose Adjustment Patient: Cody Gomez Yuan Date of Lab Test: 10/05/2015 Prograf Level: 5.4 Previous Prograf Dose: 2 mg in the morning and 1 mg in the evening New Prograf Dose: 2 mg BID Spoke with Cody Patricia Yuan to [...] AM EDT Hospital Encounter Non[place] [address] Arrived documented as of this encounter Visit Diagnoses Not on filedocumented in this encounter Care Teams Technical Recruiter Relationship Specialty Start Date End Date Urbano Denis DO [address] [place] [address] [address] [place] [address] PCP - General 09/03/12 03/17/22 Ruchi Valles RN Nurse Clinic Transplant Surgery 07/30/15 documented as of this encounter
--- OUTSIDE RECORDS SUMMARY | 2024-02-14 11:35 | XMS_ITS | Encounter Summary ---
Author Organization [facility] [place] [address] Care Team Providers Care Operations Support Coordinator Name Role Phone Adeel Urbano KIRBY Primary Care Provider Encounter Details Date Type Department Care Team (Late st Contact Info) Description 11/12/2015 Telephone [place] [phone] Samia Escalante, RN Social History Tobacco Use [...] Encounter - Samia Escalante, RN - 11/12/2015 9:59 AM EDT Spoke to pt's this morning, who tells me that her expressed that this morning he feelsawful. He was not very descriptive to her, so I asked to speak to him. Pt's took his temperature while I had them on the phone, and it is 100.9F. Yash tells me he started to feel badly yesterday, achey all over, no headache. Pt denies nausea, vomiting, urinary symptoms, or abdominal pain. He sounds rather congested and says he has been blowing my nose non-stop. Clear nasal discharge, denies sore throat, cough, wheezing, or pain in his chest/lungs. Per Dr. Eagle, pt is to report for further evaluation to the ED for sudden onset of fever - called pt back to relay this information. No answer. Left message asking for call-back. Samia Escalante, JADEN [facility] Solid Organ Transplant [phone] (Pager: [phone]) documented in this encounter Plan of Treatment Upcoming Encounters Date Type Department Care Team (Late st Contact Info) Description 04/15/2024 10:00 AM EDT Hospital Encounter Non[place] [address] Arrived documented as of this encounter Visit Diagnoses Not on filedocumented in this encounter Care Teams Operations Support Coordinator Relationship Specialty Start Date End Date Urbano Denis DO [address] [place] [address] [address] [place] [address] PCP - General 09/03/12 03/17/22 Ruchi Valles RN Nurse Clinic Transplant Surgery 07/30/15 documented as of this encounter
--- OUTSIDE RECORDS SUMMARY | 2024-02-14 11:36 | XMS_ITS | Encounter Summary ---
Author Organization [facility] [place] [address] Care Team Providers Care Shell Mold Bonding Machine Operator Name Role Phone Urbano Denis DO Primary Care Provider Encounter Details Date Type Department Care Team (Late st Contact Info) Description 09/21/2015 Abstract [place] [address] [address] Social History Tobacco Use Types [...] AM EDT Hospital Encounter [place] [address] Arrived documented as of this encounter Visit Diagnoses Not on filedocumented in this encounter Care Teams Shell Mold Bonding Machine Operator Relationship Specialty Start Date End Date Urbano Denis DO [address] [place] [address] PCP - General 09/03/12 03/17/22 Hai STANLEY,Ruchi Nurse Clinic Transplant Surgery 07/30/15 documented as of this encounter
--- OUTSIDE RECORDS SUMMARY | 2024-02-14 11:36 | XMS_ITS | Encounter Summary ---
Author Organization [facility] [place] [address] Care Team Providers Care Herbicide Service Sales Representative Name Role Phone Urbano Denis DO Primary Care Provider [phone] Encounter Details Date Type Department Care Team (Late st Contact Info) Description 09/20/2015 Notes Only Solid Organ Transplant at [facility] [place] [address] Chapin Lehman, DEDE Social History Tobacco Use Types Packs/Day Years [...] Progress Notes * Chapin Lehman MSW - 09/20/2015 1:10 PM EDT Henri visited pt post transplant to make sure that pt still had a support system in place, a plan of care upon his transition and had a ride home from the hospital. Pt reported that his anxiety level was normal now that the transplant had already happened. Sw confirmed that pt had no questions about his follow up care. Sw confirmed that pt knew how to contact the team with any questions upon discharge. Pt was concerned that he didn't remember much of the training that JADEN Escalante had given him, SW explained that the same training would be given to pt's as well. Pt was pleased by this. documented in this encounter Plan of Treatment Upcoming Encounters Date Type Department Care Team (Late st Contact Info) Description 04/15/2024 10:00 AM EDT Hospital Encounter Non[place] [address] Arrived documented as of this encounter Visit Diagnoses Not on filedocumented in this encounter Care Teams Herbicide Service Sales Representative Relationship Specialty Start Date End Date Urbano Denis DO [address] [place] [address] PCP - General 09/03/12 03/17/22 Ruchi Valles RN Nurse Clinic Transplant Surgery 07/30/15 documented as of this encounter
--- OUTSIDE RECORDS SUMMARY | 2024-02-14 11:36 | XMS_ITS | Encounter Summary ---
[place] [address] Care Team Providers Care Application Administrator Name Role Phone Urbano Denis DO Primary Care Provider Encounter Details Date Type Department Care Team (Late st Contact Info) Description 09/25/2015 External [place] [phone] Provider, Scanning Social History Tobacco Use Types Packs/Day Years [...] AM EDT Hospital Encounter Non-[place] [phone] Arrived documented as of this encounter Procedures Procedure Name Priority Date/Time Associated Diagnosis Comments SURGICAL PATHOLOGY SCAN Routine 09/25/2015 documented in this encounter Results * Scan Doc: Surgical Pathology (09/25/2015) Franko Larkin MD MEDIA MGR SCAN EXT O RDR/RSLT documented in this encounter Visit Diagnoses Not on filedocumented in this encounter Care Teams Application Administrator Relationship Specialty Start Date End Date Urbano Denis DO [address] [place] [address] PCP - General 09/03/12 03/17/22 Ruchi Valles RN Nurse Clinic Transplant Surgery 07/30/15 documented as of this encounter
--- OUTSIDE RECORDS SUMMARY | 2024-02-14 11:36 | XMS_ITS | Encounter Summary ---
Author Organization [facility] [place] [address] Care Team Providers Care Industrial Twisting Machine Operator Name Role Phone Urbano Denis DO Primary Care Provider Encounter Details Date Type Department Care Team (Late st Contact Info) Description 09/26/2015 Telephone Solid [place] [phone] Samia Escalante, RN Social History Tobacco Use [...] Telephone Encounter - Samia Escalante, RN - 09/27/2015 8:05 AM EDT Spoke to pt's to relay Prograf change from yesterday's trough level (down to 3mg AM/2mg PM), and then to his VNA nurse to discuss his condition today: VNA nurse, Ethel, tells me Yash is afebrile, HR 62, BP 120/60, and that she had not taken his weight yet. His incision is c/d/i, LEEANNA site is healing well. She has flushed pt's line with heparin today. There are no questions or concerns from pt or pt's at this time. Will call tomorrow to check in. Samia Escalante, RN [facility] Solid Organ Transplant [phone] (Pager: [phone]) documented in this encounter Plan of Treatment Upcoming Encounters Date Type Department Care Team (Late st Contact Info) Description 04/15/2024 10:00 AM EDT Hospital Encounter [place] [address] Arrived documented as of this encounter Visit Diagnoses Not on filedocumented in this encounter Care Teams Industrial Twisting Machine Operator Relationship Specialty Start Date End Date Urbano Denis DO [address] [place] [address] [address] [place] [address] PCP - General 09/03/12 03/17/22 Ruchi Valles RN Nurse Clinic Transplant Surgery 07/30/15 documented as of this encounter
--- OUTSIDE RECORDS SUMMARY | 2024-02-14 11:36 | XMS_ITS | Encounter Summary ---
Author Organization [facility] [place] [address] Care Team Providers Care Belt Worker Name Role Phone AdeelUrbano toscano Primary Care Provider Encounter Details Date Type Department Care Team (Late st Contact Info) Description 10/01/2015 Orders [place] [phone] Tulio Marcelo MD [facility] [place] [address] Hepatitis C virus infection without hepatic coma, [...] AM EDT Hospital Encounter Non-Invasive [place]iology [place] [phone] Arrived Pending Results Name Type Priority Associated Diagnoses Date /Time Hepatitis C genotype Lab Routine Hepatitis C virus infection without hepatic coma, unspecified chronicity 01/04/2016 1:44 PM EDT Scheduled Orders Name Type Priority Associated Diagnoses Orde r Schedule Comprehensive metabolic panel (non-fasting) Lab Routine Hepatitis C virus infection without hepatic coma, unspecified chronicity Expected: 12/24/2015 (Approximate), Expires: 09/30/2016 Prothrombin Time Lab Routine Hepatitis C virus infection without hepatic coma, unspecified chronicity Expected: 12/24/2015 (Approximate), Expires: 09/30/2016 CBC (with Diff) Lab Routine Hepatitis C virus infection without hepatic coma, unspecified chronicity Expected: 12/24/2015 (Approximate), Expires: 09/30/2016 Hepatitis C genotype Lab Routine Hepatitis C virus infection without hepatic coma, unspecified chronicity Expected: 12/24/2015 (Approximate), Expires: 09/30/2016 documented as of this encounter Visit Diagnoses Diagnosis Hepatitis C virus infection without hepatic coma, unspecified chronicity documented in this encounter Care Teams Belt Worker Relationship Specialty Start Date End Date Urbano Denis DO [address] [place] [address] PCP - General 09/03/12 03/17/22 Ruchi Valles RN Nurse Clinic Transplant Surgery 07/30/15 documented as of this encounter
--- OUTSIDE RECORDS SUMMARY | 2024-02-14 11:36 | XMS_ITS | Encounter Summary ---
Author Organization [facility] [place] [address] Care Team Providers Care Entry Level Buyer Name Role Phone Urbano Denis DO Primary Care Provider Encounter Details Date Type Department Care Team (Late st Contact Info) Description 09/28/2015 10:30 AM EDT Office Visit [place] [address] Jennifer Amaro MD [facility] [place] [address] H/O kidney transplant Social History Tobacco Use [...] Sign Reading Time Taken Comments Blood Pressure 100/60 09/28/2015 10:43 AM EDT Pulse 50 09/28/2015 10:43 AM EDT Temperature 36.6 ??C (97.9 ??F) 09/28/2015 1 0:43 AM EDT Respiratory Rate 16 09/28/2015 10:4 3 AM EDT Oxygen Saturation - - Inhaled Oxygen Concentration - - Weight 100.1 kg (220 lb 9.6 oz) 016 10:43 AM EDT Height 177.8 cm (5' 10) 09/28/2015 10: 43 AM EDT Body Mass Index 31.65 09/28/2015 10:43 AM EDT documented in this encounter Progress Notes * Herlinda Bell, RD - 09/28/2015 1:54 PM EDT [facility] Post Transplant Nutrition Follow Up Date: 09/28/2015 Patient: Cody Bolden Transplant Date: 09/16/15 [place] organ [facility] diagnosis: Transplant: Mr. Cody Bolden is a White Not nor 65 y.o. male who is Status Post Kidney transplantation on 09/16/15. Patient was seen by Nutrition services on 09/28/2015 for follow up. Wt Readings from Last 3 Encounters: 09/28/15 100.064 kg (220 lb 9.6 oz) 09/25/15 103.692 kg (228 lb 9.6 oz) 09/20/15 105.7 kg (233 lb 0.4 oz) Today's vital signs: BP 100/60 mmHg Pulse 50 Temp(Src) 36.6 ??C (97.9 ??F) (Oral) Resp 16 Ht 177.8 cm (5' 10) Wt 100.064 kg (220 lb 9.6 oz) BMI 31.65 kg/m2 Estimated body mass index is 31.65 kg/(m^2) as calculated from the following: Height as of this encounter: 177.8 cm (5' 10). Weight as of this encounter: 100.064 kg (220 lb 9.6 oz). Weight pre-Txp: 100.7 Kg (220.6 lbs) BMI: 31.9 Lab Results Component Value Date HGB 11.5* 09/28/2015 HCT 34.2* 09/28/2015 NA 136 09/28/2015 K 4.9 09/28/2015 BUN 31* 09/28/2015 CREATININE 1.50 09/28/2015 GLUCOSE 148 09/28/2015 CALCIUM 9.0 09/28/2015 MAGNESIUM 0.48* 09/28/2015 PHOS 4.5 09/28/2015 ALBUMIN 3.7 09/28/2015 Cholesterol (in eD-H the component name CHLPL=Cholesterol) Lab Results Component Value Date CHLPL 186 09/28/2015 Assessment: This headline writer provided patient with a copy of his post-transplant nutrition lab report and reviewed with him. Patient's serum magnesium significantly less than acceptable; magnesium supplement increased. Patient's BP low; receiving 2L IV fluid supplement today. Plan: Follow up next clinic visit and prn. * Juan Daniel Escalante RN - 09/28/2015 12:28 PM EDT 2L normal saline administered over 2 hours for dehydration per Dr. Amaro. Start time 11:15a, end time 1:15p. 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 He is doing well today and his only complaint was mild orthostasis. He is hypotensive in clinic today and has not maintained his I/O balance over the course of the week. His weight is down by 4kg. Urine output is running in the 2.5L / day range. Renal allograft function recovery stalled. Current Meds: Current Outpatient Prescriptions Medication Sig [...] by mouth daily. 14 each 0 ??? doxycycline (VIBRA-TABS) 100 mg Tablet Take 1 tablet by mouth 2 times daily for 10 days. 20 tablet 0 ??? PROGRAF 1 mg Capsule Take [...] EXTREMITY performed by Jennifer Amaro MD at [facility] MAIN OR ??? Pro transplantation of kidney N/A 09/16/2015 @KIDNEY TRANSPLANT, WITHOUT RECIPIENT NEPHRECTOMY performed by Franko Larkin MD at [facility] OR ??? Pro transplant, prep cadaver renal graft N/A 09/16/2015 @PREPARATION CADAVERIC RENAL ALLOGRAFT performed by Franko Larkin MD at [facility] OR ??? N/A 09/16/2015 ORGAN ACQUISITION RENAL, CADAVERIC performed by Franko Larkin MD at [facility] OR Family History: No family history on file. Social History: History Substance Use Topics ??? Smoking status: Former Smoker Types: Cigars ??? Smokeless tobacco: Never Used Comment: cigars, only sometimes ??? Alcohol Use: No ROS: Review of Systems Vital Signs: BP 100/60 mmHg Pulse 50 Temp(Src) 36.6 ??C (97.9 ??F) (Oral) Resp 16 Ht 177.8 cm (5' 10) Wt 100.064 kg (220 lb 9.6 oz) BMI 31.65 kg/m2 Physical Exam: Objective: Vital signs (most recent): Blood pressure 100/60, pulse 50, temperature 36.6 ??C (97.9 ??F), temperature source Oral, resp. rate 16, height 177.8 cm (5' 10), weight 100.064 kg (220 lb 9.6 oz). General appearance: Comfortable, in no acute distress, well-appearing and not in pain. Abdomen: Abdomen is soft. No distension. Wound: Clean. There is no drainage. Labs: Lab Results Component Value Date CREATININE 1.50 09/28/2015 K 4.9 09/28/2015 GLUCOSE 148 09/28/2015 HCT 34.2* 09/28/2015 HGB 11.5* 09/28/2015 WBC 11.4* 09/28/2015 PHOS 4.5 09/28/2015 Assessment/Plan: Mr. Bolden lost 4kg since his Thursday appointment and presented with mild symptomatic hypotensiontoday. He is receiving 2 L IV NS in the clinic and I educated him about the need to maintain his I/O balance. His daily urine volume is in the 2.5L range and he felt comfortable that he could accomplish this. We will repeat his BP again after the IVF and confirm that his orthostasis has resolved. Cr level was 1.5 from 1.6 earlier this week. His LFT's are normal today. We checked his hepatitis C viral load early following transplantation and Dr. Marcelo asked for us to refer him to his clinic for Hepatology followup with repeat hepatitisC testing (including genotype testing) at 4 weeks following the transplant operation. We are making arrangements for this through his office. He completed his IV antibiotic course for the positive donor blood cultures and remains on the doxycyline prophylaxis x 10 days (09/23 - 10/03) for the donor history of tick bite + rash which was concerning for Lyme disease. This was at the recommendations of our ID service and they did not feel thatadditional testing in the recipient was warranted. Immunosuppression management: Prograf: 09/04, trough level goal is 8 - 10 and is still pending. Level was 11 Prednisone: 20 mg po qd decreased to 15 mg po qd today MMF: 750 mg po bid BP management: decreased carvedilol to 6.25 mg po bid from 12.5mg po bid MD: JENNIFER AMARO MD documented in this encounter Miscellaneous Notes * Addendum Note - Juan Daniel Escalante, RN - 09/28/2015 12:30 PM EDTAddended by: JUAN DANIEL ESCALANTE on: 09/28/2015 12:30 PM Modules accepted: Orders documented in this encounter Plan of Treatment Upcoming Encounters Date Type Department Care Team (Late st Contact Info) Description 04/15/2024 10:00 AM EDT Hospital Encounter [place] [address] Arrived documented as of this encounter Procedures Procedure Name Priority Date/Time Associated Diagnosis Comments HEMOGRAM STAT 09/28/2015 9:35 AM EDT H/O kidney transplant DIFFERENTIAL, AUTOMATED STAT 09/28/2015 9:35 AM EDT H/O kidney transplant GREEN TUBE HOLD STAT 09/28/2015 9:35 AM EDT TACROLIMUS LEVEL STAT 09/28/2015 9:35 AM EDT H/O kidney transplant URINALYSIS WITH REFLEX CULTURE STAT 09/28/2015 9:35 AM EDT H/O kidney transplant RETICULOCYTE COUNT STAT 09/28/2015 9: 35 AM EDT H/O kidney transplant CBC (WITH DIFF) STAT 09/28/2015 9:35 AM EDT H/O kidney transplant URINE CULTURE STAT 09/28/2015 9:35 AM EDT URIC ACID STAT 09/28/2015 9:35 AM EDT H/O kidney transplant PHOSPHORUS STAT 09/28/2015 9:35 AM EDT H/O kidney transplant MAGNESIUM STAT 09/28/2015 9:35 AM EDT H/O kidney transplant CHOLESTEROL, TOTAL STAT 09/28/2015 9: 35 AM EDT H/O kidney transplant COMPREHENSIVE METABOLIC PANEL STAT 09/28/2015 9:35 AM EDT H/O kidney transplant documented in this encounter Results * Urine culture (09/28/2015 9:35 AM EDT) [facility] Urine Culture No growth (Less than 1,000 cfu/ml). [facility] Urine specimen obtained by clean catch procedure (specimen) 09/28/2015 9:35 AM EDT 09/28/2015 10:46 AM EDT Narrative Resulting Agency Comment Spec In Lab Jennifer Amaro MD MICROBIOLOGY - GENERAL ORDERABLES Performing Organization Address City/[facility]/ZIP Co de Phone Number [facility] [place] [address] * Green Tube HOLD (09/28/2015 9:35 AM EDT) [facility] Green Hold Sample in lab. [facility] Blood specimen (specimen) Venous Draw / Unknown 09/28/2015 9:35 AM EDT 09/28/2015 9:58 AM EDT Jennifer Amaro MD CHEMISTRY ORDE RABLES Performing Organization Address City/[facility]/ZIP Co de Phone Number [facility] [place] [address] * (ABNORMAL) Differential, Automated (09/28/2015 9:35 AM EDT) Pathologist [facility] Neutrophil % 74.3 % [facility] Neutrophil Absolute 8.44(H) 1.50 - 6.30 x10(3)/mc L [facility] Lymph % 18.8 % [facility] Lymphocytes Abs 2.1 1.0 - 3.6 x10(3)/mc L [facility] Monocyte % 3.8 % [facility] Monocyte Abs 0.4 0.2 - 1.0 x10(3)/[facility] Eos % 1.8 % [facility] Eosinophils Abs 0.2 0.0 - 0.5 x10(3)/[facility] Basophil % 0.4 % [facility] Baso Absolute 0.0 0.0 - 0.2 x10(3)/[facility] Immature Gran % 0.90 % [facility] Comment: Immature granulocytes(IG's)percentage and absolute count will include metamyelocytes, myelocytes, and promyelocytes. Blood smears from CBCs yielding IG's will be scanned manually for concordance. If this scan disagrees with the automated IG or if promyelocytes are noted, a manual differential will be performed. Immature Gran Absolute 0.10(H) 0.00 - 0.05 x10(3)/[facility] Blood specimen (specimen) 09/28/2015 9:35 AM EDT 09/28/2015 9:56 AM EDT Narrative Resulting Agency Comment Spec In Lab Jennifer Amaro MD HEMATOLOGY ORD ERABLES [facility] [place] [address] * (ABNORMAL) Hemogram (09/28/2015 9:35 AM EDT) White Blood Cell 11.4(H) 4.0 - 10.0 x10(3)/[facility] Red Blood Cell 3.69(L) 4.63 - 6.08 x10(6)/[facility] Hemoglobin 11.5(L) 13.7 - 17.5 gm/dL [facility] Hematocrit 34.2(L) 40.0 - 51.0 % [facility] Mean Cell Volume 92.7(H) 79.0 - 92.0 fL [facility] Mean Cell Hemoglobin 31.2 25.6 - 32.2 pg [facility] Mean Cell Hemoglobin Concentration 33.6 32.0 - 36.5 gm/dL [facility] Platelet 266 145 - 370 x10(3)/mc L [facility] RDW Standard Deviation 49.6(H) 35.0 - 46.0 fL [facility] RDW coefficient of variation 14.9(H) 10.9 - 14.4 % [facility] Mean Platelet Volume 9.5 9.0 - 12.0 fL [facility] Blood specimen (specimen) 09/28/2015 9:35 AM EDT 09/28/2015 9:56 AM EDT Narrative Resulting Agency Comment Spec In Lab Jennifer Amaro MD HEMATOLOGY ORD ERABLES Performing Organization Address [facility]/ZIP Co de Phone Number [facility] [place] [address] * Tacrolimus level (09/28/2015 9:35 AM EDT) Tacrolimus 15.1 ng/mL [facility] Comment: Called by: payton, Read back by: jamil [phone], Date/Time:09/28/15 12:21. Trough therapeutic: ??5-15 ng/mL Blood specimen (specimen) 09/28/2015 9:35 AM EDT 09/28/2015 11:12 AM EDT Narrative Resulting Agency Comment Spec In Lab Jennifer Amaro MD CHEMISTRY ORDE DICK Performing Organization Address City/[facility]/ZIP Co de Phone Number [facility] [place] [address] * (ABNORMAL) Urinalysis with reflex Culture (09/28/2015 9:35 AM EDT) Glucose, Urine Dipstick Negative Negative mg/dL [facility] Protein, Urine Dipstick 30(A) Negative mg/dL [facility] Bilirubin, [...] [facility] Blood, Urine Dipstick Large(A) Negative mg/dL [facility] Ketone, Urine Dipstick Negative Negative mg/dL [facility] Nitrite, Urine Dipstick Negative Negative [facility] Leukocytes, Urine Dipstick Trace(A) Negative [facility] Appearance, Urine Dipstick Clear Clear [facility] Specific [place] Urine Automated 1.025 1.002 - 1.030 [facility] Color, Urine Dipstick Yellow Yellow [facility] RBC, Urine 70(H) 0 - 3 /HPF [facility] WBC, Urine 13(H) 0 - 3 /HPF [facility] Reflex to Culture Yes [facility] Urine specimen obtained by clean catch procedure (specimen) 09/28/2015 9:35 AM EDT 09/28/2015 9:57 AM EDT Narrative Resulting Agency Comment Spec In Lab Jennifer Amaro MD URINE ORDERABL ES [facility] [place] [address] * (ABNORMAL) Reticulocyte Count (09/28/2015 9:35 AM EDT) Reticulocyte % 4.7(H) 0.5 - 2.4 % [facility] Retic Abs # 0.170(H) 0.027 - 0.095 x10(6)/mc L [facility] Immature Retic% 8.0 2.3 - 15.9 % [facility] Reticulated Hgb 37.1 28.5 - 38.9 pg [facility] Immature Plt % 1.2 0.0 - 7.4 % [facility] Blood specimen (specimen) 09/28/2015 9:35 AM EDT 09/28/2015 9:56 AM EDT Narrative Resulting Agency Comment Spec In Lab Jennifer Amaro MD HEMATOLOGY ORD ERABLES Performing Organization Address City/[facility]/ZIP Co de Phone Number [facility] [place] [address] * Uric acid (09/28/2015 9:35 AM EDT) Uric Acid 4.9 3.5 - 8.5 mg/dL [facility] Blood specimen (specimen) 09/28/2015 9:35 AM EDT 09/28/2015 9:56 AM EDT Narrative Resulting Agency Comment Spec In Lab Jennifer Amaro MD CHEMISTRY ORDTiny JENNINGS Performing Organization Address City/[facility]/ZIP Co de Phone Number [facility] [place] [address] * Phosphorus (09/28/2015 9:35 AM EDT) Phosphorus 4.5 2.5 - 4.5 mg/dL [facility] Blood specimen (specimen) 09/28/2015 9:35 AM EDT 09/28/2015 9:56 AM EDT Narrative Resulting Agency Comment Spec In Lab Jennifer Amaro MD CHEMISTRY ORDE RABLENORE Performing Organization Address City/[facility]/ZIP Co de Phone Number [facility] [place] [address] * (ABNORMAL) Magnesium (09/28/2015 9:35 AM EDT) Magnesium 0.48(L) 0.69 - 1.07 mmol/L [facility] Blood specimen (specimen) 09/28/2015 9:35 AM EDT 09/28/2015 9:56 AM EDT Narrative Resulting Agency Comment Spec In Lab Jennifer Amaro MD CHEMISTRY ROCHELLE JENNINGS Performing Organization Address [facility] [[email or web address]] Co de Phone Number [facility] [place] [address] * Cholesterol, total (09/28/2015 9:35 AM EDT) Cholesterol, Total 186 <=199 mg/dL [facility] Comment: Recommendations of the NCEP Adult Treatment Panel for the following risk cutoff thresholds for the [place] population: Desirable: <200 mg/dL Borderline High: 200-239 mg/dL High: > or = 240 mg/dL Blood specimen (specimen) 09/28/2015 9:35 AM EDT 09/28/2015 9:56 AM EDT Narrative Resulting Agency Comment Spec In Lab Jennifer Amaro MD CHEMISTRY ROCHELLE JENNINGS Performing Organization Address [facility] [[email or web address]] Co de Phone Number [facility] [place] [address] * (ABNORMAL) Comprehensive metabolic panel (non-fasting) (09/28/2015 9:35 AM EDT) Glucose 148 65 - 199 mg/dL [facility] Comment:Diabetes: >=200 mg/d L plus symptoms Blood Urea Nitrogen 31(H) 10 - 20 mg/dL [facility] Creatinine 1.50 0.80 - 1.50 mg/dL [facility] Comment: Please note that the pediatric reference intervals supplied above were not validated at [facility]. Results from pediatric patients should be interpreted in conjunction to the patient's age, height and muscle mass. Sodium 136 135 - 145 mmol/L [facility] Potassium 4.9 3.5 - 5.0 mmol/L [facility] Comment: Please note: ??Patients with WBC >100,000 may have falsely elevated Potassium levels. ??For accurate Potassium quantification in these patients send serum separator tube (gold top) for subsequent determinations. ??Contact the Clinical Chemistry Laboratory if there are any questions. Chloride 101 98 - 107 mmol/L [facility] Carbon Dioxide 24 22 - 31 mmol/L [facility] Anion Gap 11 5 - 15 mmol/L [facility] Calcium 9.0 8.5 - 10.5 mg/dL [facility] Protein, Total 6.7 6.1 - 8.0 gm/dL [facility] Albumin 3.7 3.2 - 5.2 gm/dL [facility] Aspartate Aminotransferase 20 0 - 39 unit/L [facility] Alanine Aminotransferase 37 0 - 55 unit/L [facility] Alkaline Phosphatase 72 40 - 120 unit/L [facility] Bilirubin, Total 0.7 0.2 - 1.3 mg/dL [facility] Bilirubin, Direct 0.2 0.0 - 0.3 mg/dL [facility] Est Glomerular Filtration Rate 47(L) >=60 [facility] Comment: This estimated GFR (eGFR) [...] the following links into your internet browser. [email or web address] Blood specimen (specimen) 09/28/2015 9:35 AM EDT 09/28/2015 9:56 AM EDT Narrative Resulting Agency Comment Spec In Lab Jennifer Amaro MD CHEMISTRY ROCHELLE JENNINGS [facility] [place] [address] documented in this encounter Visit Diagnoses Diagnosis H/O kidney transplant Kidney replaced by transplant documented in this encounter Care Teams Entry Level Buyer Relationship Specialty Start Date End Date Urbano Denis DO [address] [place] [address] PCP - General 09/03/12 03/17/22 Ruchi Valles RN Nurse Clinic Transplant Surgery 07/30/15 documented as of this encounter
--- OUTSIDE RECORDS SUMMARY | 2024-02-14 11:36 | XMS_ITS | Encounter Summary ---
[place] [address] Care Team Providers Care Retail Loan Originator Name Role Phone Urbano Denis DO Primary Care Provider Encounter Details Date Type Department Care Team (Latest Contact Info) Description 09/25/2015 10:47 AM EDT - 09/25/2015 11:59 PM EDT Hospital [place] [address] Discharge Disposition: Home Social History Tobacco Use [...] Refills Start Date End Date levothyroxine (SYNTHROID) 75 mcg Tablet Take 75 [...] mouth daily. 14 each 0 09/20/2015 01/03/2016 doxycycline (VIBRA-TABS) 100 mg Tablet Take 1 tablet by mouth 2 times daily for 10 days. 20 tablet 0 09/19/2015 09/29/2015 nystatin (MYCOSTATIN) 100,000 unit/mL Suspension Swish and swallow 5mL after meals and at bedtime. 473 mL 1 09/17/2015 10/28/2015 PROGRAF 1 mg Capsule Take 5 capsules by mouth twice daily. KIDNEY TRANSPLANT Z94.0. TRANSPLANT DATE: 09/16/2015 300 capsule 11 09/17/2015 10/26/2015 mycophenolate (CELLCEPT) 250 mg Capsule Take 3 capsules by mouth 2 times daily. Kidney replaced by transplant 09/16/2015. Z94.0 180 capsule 11 09/17/2015 10/17/2015 predniSONE (DELTASONE) 5 mg Tablet Take 4 tablets by mouth daily. 120 tablet 11 09/17/2015 10/05/2015 DILTiazem (DILTIAZEM CD) 120 mg Capsule, Sust. Release 24 hr Take 1 capsule by mouth daily. 30 capsule 11 09/17/2015 05/28/2016 valGANciclovir (VALCYTE) 450 mg Tablet Take 2 tablets by mouth daily for 183 days. 60 tablet 6 09/17/2015 10/17/2015 sulfamethoxazole-trim ethoprim (BACTRIM;SEPTRA) 400-80 mg Tablet Take 1 tablet by mouth daily for 364 days. 30 tablet 11 09/17/2015 10/17/2015 pantoprazole (PROTONIX) 40 mg Tablet, Delayed Release (E.C.) Take 1 tablet by mouth daily. 30 tablet 11 09/17/2015 10/17/2015 potassium phosphate, monobasic, (K-PHOS ORIGINAL) 500 mg Tablet, Soluble Take 1 tablet by mouth 4 times daily. 120 tablet 11 09/17/2015 11/08/2015 clopidogrel (PLAVIX) 75 mg Tablet Take 1 tablet by mouth daily. 30 tablet 0 05/12/2015 05/28/2016 carvedilol (COREG) 6.25 mg Tablet Take 12.5 mg by mouth 2 times daily (with meals). 10/05/2015 ONE TOUCH ULTRA TEST Strip 0 04/28/2014 01/28/2016 ONE TOUCH ULTRAMINI Kit 0 04/28/2014 01/28/2016 ONE TOUCH DELICA LANCETS 30 gauge Misc 0 04/28/20142015 doxazosin (CARDURA) 4 mg Tablet Take 1 tablet by mouth nightly. 90 tablet 3 05/22/2014 10/05/2015 documented as of this encounter Plan of Treatment Upcoming Encounters Date Type Department Care Team (Late st Contact Info) Description 04/15/2024 10:00 AM EDT Hospital Encounter [place] [id number] Arrived documented as of this encounter Procedures Procedure Name Priority Date/Time Associated Diagnosis Comments SURGICAL PATHOLOGY REPORT Routine 09/25/2015 10:47 AM EDT documented in this encounter Results * Surgical Pathology Report (09/25/2015 10:47 AM EDT) Final Diagnosis [id number] ? Location: [facility] The signing pathologist has (i) examined the relevant preparation(s) for the specimen(s) and (ii) rendered or confirmed the diagnosis(es). . ?Surgical Pathology DIAGNOSIS CONSULTATION CASE Outside slides labeled RtK (Donor ID# [id number]), collection date 09/15/2015. Kidney, wedge biopsy, pre-transplant: Acute tubular injury. (see Discussion.) CR-0 09/25/15 EBP 09/26/15 Verified by: ? Pavan Silverman MD ?Pathologist ?(Electronic Signature) The attending pathologist whose signature appears on this report has reviewed all diagnostic slides and has edited the gross and/or microscopic portion of the report in rendering the final pathologic diagnosis. DISCUSSION Three frozen section slides are reviewed which show two wedges of renal cortex each. Morphologic assessment is limited by frozen section. However, diffuse tubular dilatation is seen along with occasional tubular lumens with granular debris consistent with acute tubular injury/necrosis. The interstitial space is mildly expanded, possibly secondary to ATI and/or related edema. No definite pathologic interstitial fibrosis is seen. Approximately 135 intact glomeruli are present, none of which are globally sclerotic. No vascular abnormalities are identified. ADDITIONAL STUDIES Whole slide scan: [place] slide CLINICAL INFORMATION Specimen Submitted: CONSULTATION CASE A - 3 slides labeled RtK (Donor ID# [id number]), collection date 09/15/2015. [id number] Report to: [facility] [address] [place] [address] T: [phone] F: [phone] SPECIMEN PROCESSING [facility] ([facility]) pathology slide(s) are reviewed. ??Refer to Diagnosis and Specimen Submitted for specific case information. For the full text of the [facility] report(s) please refer to Non-DH Documentation Pathology in the electronic health record (eDH). 09/26/2015 10:03 AM EDT [facility] Consult Case 09/25/2015 10:4 7 AM EDT 09/25/2015 10:47 AM EDT Franko Larkin MD PATHOLOGY/CYTOLOGY O RDERABG Performing Organization Address City/State/[facility] Co de Phone Number [facility] [place] [address] documented in this encounter Visit Diagnoses Not on filedocumented in this encounter Care Teams Retail Loan Originator Relationship Specialty Start Date End Date Urbano Denis DO [facility] [address] [place] [address] PCP - General 09/03/12 03/17/22 Ruchi Valles RN Nurse Clinic Transplant Surgery 07/30/15 documented as of this encounter
--- OUTSIDE RECORDS SUMMARY | 2024-02-14 11:36 | XMS_ITS | Encounter Summary ---
Author Organization Formerly [facility] [place] [address] Care Team Providers Care Room Maid Name Role Phone Urbano Denis DO Primary Care Provider [phone] Encounter Details Date Type Department Care Team (Late st Contact Info) Description 09/25/2015 10:30 AM EDT Office Visit [place] [address] Larry Larkin MD [facility] [place] [address] H/O kidney transplant Social History Tobacco Use [...] Sign Reading Time Taken Comments Blood Pressure 119/65 09/25/2015 9:47 AM EDT Pulse 49 09/25/2015 9:47 AM EDT Temperature 36.7 ??C (98 ??F) 09/25/2015 9:47 AM EDT Respiratory Rate 16 09/25/2015 9:47 AM EDT Oxygen Saturation - - Inhaled Oxygen Concentration - - Weight 103.7 kg (228 lb 9.6 oz) 09/25/2015 9:47 AM EDT Height 177.8 cm (5' 10) 09/25/2015 9:47 AM EDT Body Mass Index 32.8 09/25/2015 9:47 AM EDT documented in this encounter Progress Notes * Herlinda Bell, RD - 09/25/2015 2:32 PM EDT [facility] Post Transplant Nutrition Follow Up Date: 09/25/2015 Patient: Cody Bolden Transplant Date: 09/16/15 Ute organ UNOS diagnosis: Transplant: Mr. Cody Bolden is a White Not nor 65 y.o. male who is Status Post Kidney transplantation on 09/16/15. Patient was seen by Nutrition services on 09/25/2015 for follow up. Wt Readings from Last 3 Encounters: 09/25/15 103.692 kg (228 lb 9.6 oz) 09/20/15 105.7 kg (233 lb 0.4 oz) 07/17/15 99.791 kg (220 lb) Today's vital signs: BP 119/65 mmHg Pulse 49 Temp(Src) 36.7 ??C (98 ??F) (Oral) Resp 16 Ht 177.8 cm (5' 10) Wt 103.692 kg (228 lb 9.6 oz) BMI 32.80 kg/m2 Estimated body mass index is 32.8 kg/(m^2) as calculated from the following: Height as of this encounter: 177.8 cm (5' 10). Weight as of this encounter: 103.692 kg (228 lb 9.6 oz). Weight pre-Txp: 100.7 Kg (222 lbs) BMI: 31.9 Labs: Lab Results Component Value Date HGB 10.4* 09/25/2015 HCT 30.5* 09/25/2015 NA 138 09/25/2015 K 4.4 09/25/2015 BUN 39* 09/25/2015 CREATININE 1.65* 09/25/2015 GLUCOSE 151 09/25/2015 CALCIUM 8.5 09/25/2015 MAGNESIUM 0.57* 09/25/2015 PHOS 2.2* 09/25/2015 ALBUMIN 3.3 09/25/2015 Cholesterol (in eD-H the component name CHLPL=Cholesterol) Lab Results Component Value Date CHLPL 149 09/25/2015 Assessment: This chart writer provided patient with a copy of his post-transplant nutrition lab report and reviewed with patient and his . Patient is feeling well; graft function improving. Magnesium supplementation increased to 1000mg twice per day about an hour before breakfast or lunch and dinner; phos supplementation to continue 4 times per day at end of meal and HS. Plan: Follow up next clinic visit and prn. Patient will return on Thursday for visit. Reassess labs and weight prn. * Larry Larkin MD - 09/25/2015 10:38 AM EDT Follow-Up: Transplant Clinic Date: 09/25/2015 Patient: Cody Bolden Date of Transplant: 09/16/2015 (Kidney) Transplant Surgeon: Chaya History of Present Illness: Cody Bolden is s/p Kidney transplant on 09/16/2015 (Kidney). He presents for evaluation and management after his transplant procedure. He has been doing very well. His UOP is increasing. He is feeling quite well. Current Meds: Current Outpatient Prescriptions Medication Sig Dispense Refill ??? levothyroxine (SYNTHROID) 75 mcg Tablet Take 75 mcg by mouth daily. ??? acetaminophen (TYLENOL) 325 mg Tablet Take 2 tablets by mouth every 4 hours as needed for Pain.30 tablet 1 ??? polyethylene glycol (MIRALAX) 17 gram Powder in Packet Take 17 g by mouth daily. 14 each 0 ??? oxyCODONE (ROXICODONE) 5 mg Tablet Take 1-2 tablets every 6 hours as needed for pain. 50 tablet0 ??? doxycycline (VIBRA-TABS) 100 mg Tablet Take 1 tablet by mouth 2 times daily for 10 days. 20 tablet 0 ??? PROGRAF 1 mg Capsule Take 5 capsules by mouth twice daily. KIDNEY TRANSPLANT Z94.0. TRANSPLANT DATE: 09/16/2015 (Patient taking differently: PATIENT TAKING 3mg BID) 300 capsule 11 ??? mycophenolate (CELLCEPT) 250 [...] EXTREMITY performed by Que Amaro MD at [facility] MAIN OR ??? Pro transplantation of kidney N/A 09/16/2015 @KIDNEY TRANSPLANT, WITHOUT RECIPIENT NEPHRECTOMY performed by Larry Larkin MD at [facility] MAIN OR ??? Pro transplant, prep cadaver renal graft N/A 09/16/2015 @PREPARATION CADAVERIC RENAL ALLOGRAFT performed by Larry Larkin MD at [facility] OR ??? N/A 09/16/2015 ORGAN ACQUISITION RENAL, CADAVERIC performed by Larry Larkin MD at [facility] OR Family History: No family history on file. Social History: History Substance Use Topics ??? Smoking status: Former Smoker Types: Cigars ??? Smokeless tobacco: Never Used Comment: cigars, only sometimes ??? Alcohol Use: No ROS: Review of Systems Constitutional: Negative for fever, chills and fatigue. Respiratory: Negative for shortness of breath. Cardiovascular: Positive for leg swelling. Gastrointestinal: Negative for diarrhea and constipation. Incisional pain Genitourinary: Positive for frequency. Neurological: Negative for seizures and numbness. Vital Signs: BP 119/65 mmHg Pulse 49 Temp(Src) 36.7 ??C (98 ??F) (Oral) Resp 16 Ht 177.8 cm(5' 10) Wt 103.692 kg (228 lb 9.6 oz) BMI 32.80 kg/m2 Physical Exam: Objective: Vital signs (most recent): Blood pressure 119/65, pulse 49, temperature 36.7 ??C (98 ??F), temperature source Oral, resp. rate 16, height 177.8 cm (5' 10), weight 103.692 kg (228 lb 9.6 oz). General appearance: Comfortable. Lungs: Normal respiratory rate [...] Labs: Lab Results Component Value Date CREATININE 1.65* 09/25/2015 K 4.4 09/25/2015 GLUCOSE 151 09/25/2015 HCT 30.5* 09/25/2015 HGB 10.4* 09/25/2015 WBC 10.3* 09/25/2015 PHOS 2.2* 09/25/2015 Assessment: Cody Bolden is doing well after transplant. During the visit, I examined his wound, reviewed his immunosuppression, discussed pain control, and instructed Mr. Cody Bolden regarding hydration and nutrition. I identified the following additional issues affecting his post-transplant courseU/A appears dirty. Will check culture today. . Plan: 1. Other Category: Prograf: Yes, 5 mg po bid Prednisone: 20 mg, start taper Thursday MMF: Yes, 750 mg po BID 2. Blood Pressure management: Cardizem, Carvediol 3. Calcium and phosphorus balance reviewed. Continue supplementation: Yes, QID 4. Magnesium balance reviewed. Yes, increased to QID 5. Pharmacy needs addressed. No concerns today. 6. Return to clinic: 3 days MD: LARRY LARKIN MD documented in this encounter Miscellaneous Notes * Addendum Note - Tal Eagle MD - 09/25/2015 11:28 AM EDTAddended by: TAL EAGLE on: 09/25/2015 11:28 AM Modules accepted: Orders documented in this encounter Plan of Treatment Upcoming Encounters Date Type Department Care Team (Late st Contact Info) Description 04/15/2024 10:00 AM EDT Hospital Encounter [place] [address] Arrived documented as of this encounter Procedures Procedure Name Priority Date/Time Associated Diagnosis Comments URINALYSIS WITH REFLEX CULTURE STAT 09/25/2015 9:55 AM EDT H/O kidney transplant URINE CULTURE STAT 09/25/2015 9:55 AM EDT HEMOGRAM STAT 09/25/2015 9:40 AM EDT H/O kidney transplant DIFFERENTIAL, AUTOMATED STAT 09/25/2015 9:40 AM EDT H/O kidney transplant GREEN TUBE HOLD STAT 09/25/2015 9:40 AM EDT TACROLIMUS LEVEL STAT 09/25/2015 9:40 AM EDT H/O kidney transplant RETICULOCYTE COUNT STAT 09/25/2015 9: 40 AM EDT H/O kidney transplant CBC (WITH DIFF) STAT 09/25/2015 9:40 AM EDT H/O kidney transplant URIC ACID STAT 09/25/2015 9:40 AM EDT H/O kidney transplant PHOSPHORUS STAT 09/25/2015 9:40 AM EDT H/O kidney transplant MAGNESIUM STAT 09/25/2015 9:40 AM EDT H/O kidney transplant CHOLESTEROL, TOTAL STAT 09/25/2015 9: 40 AM EDT H/O kidney transplant COMPREHENSIVE METABOLIC PANEL STAT 09/25/2015 9:40 AM EDT H/O kidney transplant documented in this encounter Results * Urine culture (09/25/2015 9:55 AM EDT) Urine Culture No growth (Less than 1,000 cfu/ml). [facility] Urine specimen obtained by clean catch procedure (specimen) 09/25/2015 9:55 AM EDT 09/25/2015 10:48 AM EDT Narrative Resulting Agency Comment Spec In Lab Larry Larkin MD MICROBIOLOGY - GENER AL ORDERABLES [facility] [place] [address] * (ABNORMAL) Urinalysis with reflex Culture (09/25/2015 9:55 AM EDT) Glucose, Urine Dipstick 50(A) Negative mg/dL [facility] Protein, [...] [facility] Blood, Urine Dipstick Large(A) Negative mg/dL [facility] Ketone, Urine Dipstick Negative Negative mg/dL [facility] Nitrite, Urine Dipstick Negative Negative [facility] Leukocytes, Urine Dipstick Trace(A) Negative [facility] Appearance, Urine Dipstick Clear Clear [facility] Specific [place] Urine Automated 1.021 1.002 - 1.030 [facility] Color, Urine Dipstick Yellow Yellow [facility] RBC, Urine 172(H) 0 - 3 /HPF [facility] WBC, Urine 12(H) 0 - 3 /HPF [facility] WBC Clumps, Urine Rare(A) None /HPF [facility] Hyaline Casts, Urine 1 0 - 2 /LPF [facility] Granular Casts, Urine 1(H) <=0 /LPF [facility] Reflex to Culture Yes [facility] Urine specimen obtained by clean catch procedure (specimen) 09/25/2015 9:55 AM EDT 09/25/2015 10:09 AM EDT Narrative Resulting Agency Comment Spec In Lab Larry Larkin MD URINE ORDERABLES Performing Organization Address City/[facility]/ZIP Co de Phone Number [facility] [place] [address] * Green Tube HOLD (09/25/2015 9:40 AM EDT) Green Hold Sample in lab. [facility] Blood specimen (specimen) Venous Draw / Unknown 09/25/2015 9:40 AM EDT 09/25/2015 9:54 AM EDT Larry Larkin MD CHEMISTRY ORDERABLES Performing Organization Address [facility] Co de Phone Number [facility] [place] [address] * (ABNORMAL) Differential, Automated (09/25/2015 9:40 AM EDT) [facility] Neutrophil % 66.2 % [facility] Neutrophil Absolute 6.81(H) 1.50 - 6.30 x10(3)/mc L [facility] Lymph % 22.8 % [facility] Lymphocytes Abs 2.4 1.0 - 3.6 x10(3)/mc L [facility] Monocyte % 5.7 % [facility] Monocyte Abs 0.6 0.2 - 1.0 x10(3)/mc L [facility] Eos % 3.5 % [facility] Eosinophils Abs 0.4 0.0 - 0.5 x10(3)/mc L [facility] Basophil % 0.1 % [facility] Baso Absolute 0.0 0.0 - 0.2 x10(3)/mc L [facility] Immature Gran % 1.70 % [facility] Comment: Immature granulocytes(IG's)percentage and absolute count will include metamyelocytes, myelocytes, and promyelocytes. Blood smears from CBCs yielding IG's will be scanned manually for concordance. If this scan disagrees with the automated IG or if promyelocytes are noted, a manual differential will be performed. Immature Gran Absolute 0.18(H) 0.00 - 0.05 x10(3)/mc L [facility] Blood specimen (specimen) 09/25/2015 9:40 AM EDT 09/25/2015 9:53 AM EDT Narrative Resulting Agency Comment Spec In Lab Larry Larkin MD HEMATOLOGY ORDERABLE S [facility] [place] [address] * (ABNORMAL) Hemogram (09/25/2015 9:40 AM EDT) White Blood Cell 10.3(H) 4.0 - 10.0 x10(3)/ L [facility] Red Blood Cell 3.29(L) 4.63 - 6.08 x10(6)/mc L [facility] Hemoglobin 10.4(L) 13.7 - 17.5 gm/dL [facility] Hematocrit 30.5(L) 40.0 - 51.0 % [facility] Mean Cell Volume 92.7(H) 79.0 - 92.[address] [facility] Mean Cell Hemoglobin 31.6 25.6 - 32.[address] [facility] Mean Cell Hemoglobin Concentration 34.1 32.0 - 36.5 gm/dL [facility] Platelet 271 145 - 370 x10(3)/mc L [facility] RDW Standard Deviation 48.1(H) 35.0 - 46.[address] [facility] RDW coefficient of variation 14.6(H) 10.9 - 14.4 % [facility] Mean Platelet Volume 9.3 9.0 - 12.[address] [facility] Blood specimen (specimen) 09/25/2015 9:40 AM EDT 09/25/2015 9:53 AM EDT Narrative Resulting Agency Comment Spec In Lab Larry Larkin MD HEMATOLOGY ORDERABLE S Performing Organization Address City/[facility]/ZIP Co de Phone Number [facility] [place] [address] * Tacrolimus level (09/25/2015 9:40 AM EDT) Pathologist [facility] Tacrolimus 11.2 ng/mL [facility] Comment:Trough therapeutic: 5-15 ng/mL Blood specimen (specimen) 09/25/2015 9:40 AM EDT 09/25/2015 11:07 AM EDT Narrative Resulting Agency Comment Spec In Lab Larry Larkin MD CHEMISTRY ORDERABLES Performing Organization Address [facility] Co de Phone Number [facility] [place] [address] * (ABNORMAL) Reticulocyte Count (09/25/2015 9:40 AM EDT) [facility] Reticulocyte % 4.4(H) 0.5 - 2.4 % [facility] Retic Abs # 0.140(H) 0.027 - 0.095 x10(6)/mc L [facility] Immature Retic% 8.2 2.3 - 15.9 % [facility] Reticulated Hgb 37.9 28.5 - 38.[address] [facility] Immature Plt % 0.9 0.0 - 7.4 % [facility] Blood specimen (specimen) 09/25/2015 9:40 AM EDT 09/25/2015 9:53 AM EDT Narrative Resulting Agency Comment Spec In Lab Larry Larkin MD HEMATOLOGY ORDERABLE S Performing Organization Address City/[facility]/ZIP Co de Phone Number [facility] [place] [address] * Uric acid (09/25/2015 9:40 AM EDT) Pathologist [facility] Uric Acid 5.6 3.5 - 8.5 mg/dL [facility] Blood specimen (specimen) 09/25/2015 9:40 AM EDT 09/25/2015 9:53 AM EDT Narrative Resulting Agency Comment Spec In Lab Larry Larkin MD CHEMISTRY ORDERABLES Performing Organization Address City/[facility]/ZIP Co de Phone Number [facility] [place] [address] * (ABNORMAL) Phosphorus (09/25/2015 9:40 AM EDT) [facility] Phosphorus 2.2(L) 2.5 - 4.5 mg/dL [facility] Blood specimen (specimen) 09/25/2015 9:40 AM EDT 09/25/2015 9:53 AM EDT Narrative Resulting Agency Comment Spec In Lab Larry Larkin MD CHEMISTRY ORDERABLES Performing Organization Address City/[facility]/ZIP Co de Phone Number [facility] [place] [address] * (ABNORMAL) Magnesium (09/25/2015 9:40 AM EDT) [facility] Magnesium 0.57(L) 0.69 - 1.07 mmol/L [facility] Blood specimen (specimen) 09/25/2015 9:40 AM EDT 09/25/2015 9:53 AM EDT Narrative Resulting Agency Comment Spec In Lab Larry Larkin MD CHEMISTRY ORDERABLES Performing Organization Address City/[facility]/ZIP Co de Phone Number [facility] [place] [address] * (ABNORMAL) Comprehensive metabolic panel (non-fasting) (09/25/2015 9:40 AM EDT) [facility] Glucose 151 65 - 199 mg/dL [facility] Comment:Diabetes: >=200 mg/d L plus symptoms Blood Urea Nitrogen 39(H) 10 - 20 mg/dL [facility] Creatinine 1.65(H) 0.80 - 1.50 mg/dL [facility] Comment: Please note that the pediatric reference intervals supplied above were not validated at [facility]. Results from pediatric patients should be interpreted in conjunction to the patient's age, height and muscle mass. Sodium 138 135 - 145 mmol/L [facility] Potassium 4.4 3.5 - 5.0 mmol/L [facility] Comment: Please note: ??Patients with WBC >100,000 may have falsely elevated Potassium levels. ??For accurate Potassium quantification in these patients send serum separator tube (gold top) for subsequent determinations. ??Contact the Clinical Chemistry Laboratory if there are any questions. Chloride 103 98 - 107 mmol/L [facility] Carbon Dioxide 24 22 - 31 mmol/L [facility] Anion Gap 11 5 - 15 mmol/L [facility] Calcium 8.5 8.5 - 10.5 mg/dL [facility] Protein, Total 6.4 6.1 - 8.0 gm/dL [facility] Albumin 3.3 3.2 - 5.2 gm/dL [facility] Aspartate Aminotransferase 19 0 - 39 unit/L [facility] Alanine Aminotransferase 33 0 - 55 unit/L [facility] Alkaline Phosphatase 60 40 - 120 unit/L [facility] Bilirubin, Total 0.7 0.2 - 1.3 mg/dL [facility] Bilirubin, Direct 0.2 0.0 - 0.3 mg/dL [facility] Est Glomerular Filtration Rate 42(L) >=60 [facility] Comment: This [...] the following links into your internet browser. [email or web address] Blood specimen (specimen) 09/25/2015 9:40 AM EDT 09/25/2015 9:53 AM EDT Narrative Resulting Agency Comment Spec In Lab Larry Larkin MD CHEMISTRY ORDERABLES Performing Organization Address City/[facility] Co de Phone Number [facility] [place] [address] * Cholesterol, total (09/25/2015 9:40 AM EDT) Cholesterol, Total 149 <=199 mg/dL [facility] Comment: Recommendations of the NCEP Adult Treatment Panel for the following risk cutoff thresholds for the [place] population: Desirable: <200 mg/dL Borderline High: 200-239 mg/dL High: > or = 240 mg/dL Blood specimen (specimen) 09/25/2015 9:40 AM EDT 09/25/2015 9:53 AM EDT Narrative Resulting Agency Comment Spec In Lab Larry Larkin MD CHEMISTRY ORDERABLES Performing Organization Address [facility] Co de Phone Number [facility] [place] [address] documented in this encounter Visit Diagnoses Diagnosis H/O kidney transplant Kidney replaced by transplant documented in this encounter Care Teams Room Maid Relationship Specialty Start Date End Date Urbano Denis DO [facility] [address] [place] [address] PCP - General 09/03/12 03/17/22 Ruchi Valles RN Nurse Clinic Transplant Surgery 07/30/15 documented as of this encounter
--- OUTSIDE RECORDS SUMMARY | 2024-02-14 11:36 | XMS_ITS | Encounter Summary ---
Author Organization [facility] [place] [address] Care Team Providers Care News Videographer Name Role Phone AdeelUrbano Primary Care Provider [phone] Reason for Visit * Auth/Cert Specialty Diagnoses / Procedures Referred By Humberto flor Referred To Contact Diagnoses RENAL FAILURE Kidney transplant. UNOS #[id number] Procedures PRO TRANSPLANTATION OF KIDNEY PRO TRANSPLANT, PREP CADAVER RENAL GRAFT @KIDNEY TRANSPLANT, WITHOUT RECIPIENT NEPHRECTOMY @PREPARATION CADAVERIC RENAL ALLOGRAFT Referral ID Status Reason Start Date Expiration Date Visits Re quested Visits Authorized [id number] 1 1 Encounter Details Date Type Department Care Team (Late st Contact Info) Description 09/16/2015 11:38 AM EDT Anesthesia [place] [address] Maxi Garcia MD [facility] [place] [address] Sara Zhong MD [facility] [place] [address] Anesthesia Record Procedure Summary Procedure Name Responsible Anesthesiologist Anesthesia Start Time Anesthesia Stop Time @KIDNEY TRANSPLANT, WITHOUT RECIPIENT NEPHRECTOMY (WRVU 39.88) (Flank) Maxi Garcia MD 09/16/15 1138 09/16/15 1517 Events Date Time Event Comment 09/16/2015 1138 Start 1140 AN Verify 1140 An Start Data 1150 An Induction 1152 An Intubation 1210 Anesthesia Ready 1334 Quick Note Kidney perfused . 1402 ABG Data Arterial Blood Gas result: pH 7.37 pCO2 42 pO2 203 FiO2 0.75 %O2 Sat 98 HCO3 24 BE -1.1 Hb 11.4 Glucose 135 K 4.81 1503 Extubation/LMA Out 1505 an stop data 1515 Recovery or ICU Handoff Alanna ent care was transferred to the destination unit staff after review of the patient's medical history, current anesthetic/surgical status and plan, according to the Provider Handoff Checklist. 1517 Stop 1541 Meds Name Total fentaNYL 450 mcg Propofol 200 mg Ondansetron 4 mg Neostigmine 5 mg Glycopyrrolate 0.9 mg Cisatracurium 44 mg Mannitol 25% 25 g Furosemide 60 mg vancomycin 1 g in dextrose 5% 200 mL 1 g methylPREDNISolone sodium mendoza ccinate (PF) (solu-MEDROL) 375 mg in sodium chloride 0.9% 56 mL 375 g ganciclovir (CYTOVENE) 126 mg in sodium chloride 0.9% 102.52 mL 126 mg basiliximab (SIMULECT) 20 mg in sodium c hloride 0.9% 55 mL 20 mg cefTAZidime (FORTAZ) 1g vial attach to sodium chloride 0.9% 50 mL Mini-Bag Plus 1 g Succinylcholine 140 mg desmopressin (DDAVP) 30.2 mcg in sodium chloride 0.9% 57.55 mL 0 mcg Labetalol 5 mg Sodium Chloride 0.9% 1,200 mL Sodium Chloride 0.9% 1,200 mL * Agents Name O2 Air N2O Isoflurane (et) * Blood No blood administrations on file. Lines, Drains, and Airways Type Details Placement Removal (RETIRED) Tunneled Central Line - Double Lumen 01/09/15; 08; internal jugular vein, right; other (see comments) (Hemo-Flow); other (see comments) (14.5 Fr); hemodialysis; 28; Santosh Ellsworth MD; 11/15/15; 1223 01/09/15 0827 by Patricia Romero RN 11/15/15 1223 by Keyana Hedrick RN Incision 05/09/15; arm; 09/15; 1427 05/09/15 0000 by Hanh Adler RN 09/16/15 1427 by Kandace Valenzuela RN Incision 07/31/15; arm; 09/15; 1427 07/31/15 0000 by Yoselin Tomlin RN 09/16/15 1427 by Kandace Valenzuela RN Incision 09/16/15; abdomen; o ther (see comments) (draini); (wound drain to small bulb); 06/17/18; 1547 09/16/15 0000 by Shira Kemp RN 06/17/18 1547 by Karly Parra RN Incision 09/16/15; abdomen; 06/17/18; 1547 09/16/15 0000 by Shira Kemp RN 06/17/18 1547 by Karly Parra RN (RETIRED) Peripheral IV Line - Single Lumen 09/16/15; 1028; cephalic vein right (lateral side of arm); bacz-hxc-zmcubo catheter system; 18 gauge, 1 in length; intradermal injection; 0; leak; 09/18/15; 1044 09/16/15 1028 by Mara Poon RN 09/18/15 1044 by Sonu Lara CRNA ETT Mask Ventilation: Adjunct (2); ETT Type: Cuffed, Oral; Mac Blade: 3; Notes: Asleep, Pre-O2, Stylette; Attempts: 1; Laryngoscopy Grade: 1; ETT Placement Verified By: Auscultation, Capnometry, Visual; Secured at Teeth: 22 cm; Inserted by: Arnel; Removal Date: 09/16/15; Removal Time: 1503 09/16/15 1152 by Miller Seals, HR RECRUITER 09/16/15 1503 by Miller Seals, CRIS Arterial Line 09/16/15; 1205; radi al artery; 20 gauge; Arnel; Sterile Prep, Sterile Gloves; 09/17/15; 1210 09/16/15 1205 by Miller Seals, HR RECRUITER 09/17/15 1210 by Kalyani Fuchs RN (RETIRED) Peripheral IV Line - Single Lumen 09/16/15; 1210; metacarpal vein right (top of hand); ucwg-ids-zoegmn catheter system; 16 gauge; MD Jose; leaking; 09/18/15; 1223 09/16/15 1210 by Miller Seals, HR RECRUITER 09/18/15 1223 by Sonu Lara CRNA (RETIRED) Peripheral IV Line - Single Lumen 09/16/15; 1210; median vein right (underside of arm); mikn-lsq-btvovg catheter system; 16 gauge; MD Jose; no longer indicated, catheter intact; 09/20/15; 1031 09/16/15 1210 by Miller Seals, CRIS 09/20/15 1031 by Pauline La, JADEN Urethral Catheter 09/16/15; 1230; Abdominal surgery; Physician order; indwelling double lumen catheter; latex; 14; inserted at this facility; 1; 10; 10; none; drainage bag to dependent drainage; 09/19/15; 0941 09/16/15 1230 by Shira Kemp RN 09/19/15 0941 by Autumn Smallwood LNA Drain/Device Site 09/16/15; 1406; abdo men; collapsible closed device; (Bard Round 19F); 09/20/15; 1330 09/16/15 1406 by Santosh Higginbotham, JADEN 09/20/15 1330 by Pualine La, JADEN documented in this encounter Social History Tobacco [...] OR Notes * Anesthesia Postprocedure Evaluation - Maxi Garcia MD - 09/16/2015 3:41 PM EDT [facility] Department of Anesthesiology Post-procedure Note Patient: Cody Bolden Procedure Summary Date Anesthesia Start Anesthesia Stop Room / Location 09/16/15 [id number] [facility] OR [facility] MAIN OR Procedure Diagnosis Surgeon Responsible Provider @KIDNEY TRANSPLANT, WITHOUT RECIPIENT NEPHRECTOMY (N/A Flank); @PREPARATION CADAVERIC RENAL ALLOGRAFT (N/A ) (Kidney transplant. UNOS #[id number]) Franko Larkin MD Allen, George K, MD All Anesthesia Providers: Anesthesiologist: Maxi Garcia MD HR RECRUITER: Miller Seals CRNA Last (1hr) Vitals: BP Temp Pulse Resp SpO2 Patient Location: PACU/[facility] Level of Consciousness: Conscious but Sleepy Pain Management: Satisfactory Analgesia PONV: None Cardiovascular Status: At Baseline Respiratory Status: At Baseline Postoperative Fluid Status: Intravascular EUvolemia Possible Anesthetic Complications: NONE apparent at time of evaluation Final Primary Anesthesia Type: General (The anesthetic type performed was the same as planned.) Comments: Patient with SBP in 130s. Comfortable and maintaining oxygenation with nasal canula. * Anesthesia Preprocedure Evaluation - Sara Xaio - 09/16/2015 7:51 AM EDT Images from the original note were not included. Pre-Anesthesia Evaluation for: Cody Bolden a 65 y.o. male. Procedure(s): @KIDNEY TRANSPLANT, WITHOUT RECIPIENT NEPHRECTOMY @PREPARATION CADAVERIC RENAL ALLOGRAFT Patient Active Problem List Diagnosis ??? Chronic kidney disease, stage V [...] Hematuria Past Medical History Diagnosis Date ??? Type [...] MD at [facility] MAIN OR History Substance Use Topics ??? Smoking status: Former Smoker Types: Cigars ??? Smokeless tobacco: Never Used Comment: cigars, only sometimes ??? Alcohol Use: No History Drug Use No No Known Allergies Medications: MAR and/or home medications have been reviewed. Physical Exam: There were no vitals filed for this visit. There is no weight on file to calculate BMI. Airway Assessment: TM distance: >3 FB Neck ROM: full Full barry Cardiovascular Assessment: Rhythm: regular Rate: normal cardiovascular exam normal Pulmonary Assessment: breath sounds clear to auscultation pulmonary exam normal Dental Assessment: (+) upper dentures Misc Assessment: Anesthesia Plan: ASA 4 General, with a(n) intravenous induction Cody Bolden is a 65 y.o. 99kg male former smoker with h/o T2DM, hypothyroidism (levothyroxine), Hepatitis C w/o cirrhosis, ?CVA (2013, residual R sided numbness, grossly negative workup, was onplavix - stopped taking 09/05/15 for colonoscopy, never resumed), GERD (omeprazole), HTN (hydralazine, carvedilol, doxazosin) chronic glomerulonephritis, and ESRD on dialysis (last dialysis on Thursday, normal run w/o issues, lasix, spironolactone,) who presents for Procedure(s): @KIDNEY TRANSPLANT, WITHOUT RECIPIENT NEPHRECTOMY @PREPARATION CADAVERIC RENAL ALLOGRAFT with Dr. Larkin. Prior anesthetic history: MAC for AV fistula placement, denies prior issues with anesthesia Carotid US: WNL DSE/Echo: EF 60%, normal stress echo, no ischemia, mild LVH with mild diastolic dysfunction, mild MR/TR, trace AI, small PFO EKG: NSR w/ PVCs Plan for GA with ETT, arterial line, triple lumen IJ (planned thymoglobulin for immunosuppression induction) and adequate IV access; standard ASA monitoring. The patient was informed of the risks, benefits and alternatives of anesthesia. These risks included, but were not limited to, post-operative nausea and/or vomiting, pain, sore throat, dental/lip trauma, and other rare but serious complications such as major organ damage, awareness, severe allergicreactions, position-related nerve injuries, and need blood transfusions. All questions sought and answered. Consent was signed and placed in chart. Region - Other Informed Consent: Anesthetic plan and risks discussed with spouse and patient. Use of blood products discussed with patient and spouse whom. Plan discussed with attending, HR RECRUITER and resident. PAT Staff Note documented in this encounter Plan of Treatment Upcoming Encounters Date Type Department Care Team (Late st Contact Info) Description 04/15/2024 10:00 AM EDT Hospital Encounter [place] [address] Arrived documented as of this encounter Visit Diagnoses Not on filedocumented in this encounter Administered Medications Inactive Administered Medications - up to 3 most recent administrations Medication Order MAR Action Action Date Dose Rate Site basiliximab (SIMULECT) 20 mg in sodium chloride 0.9% 55 mL 20 mg, Intravenous, ONCE, 1 dose, On 09/16/15 at 1015, Administer over 30 Minutes, Send to operating room with patient. To be given in the OR., Day of Surgery (Day of Procedure) New Bag 09/16/2015 12:12 PM EDT 20 mg cefTAZidime (FORTAZ) 1g vial attach to sodium chloride 0.9% 50 mL Mini-Bag Plus 1,000 mg (1 g), Intravenous, ONCE, 1 dose, On 09/16/15 at 1130, Administer over 30 Minutes, Indication for (Active or Suspected): Prophylaxis, Restricted Antibiotic: Please indicate the most appropriate choice: Pre-approved Indication (State the indication in Comments field) Given 09/16/2015 12:21 PM EDT 1 g cisatracurium (NIMBEX) 2 mg/mL bolus injection (Anesthesia) PRN, Starting on 09/16/15 at 1157, Until 09/16/15 at 1519, Anesthesia Intra-op, Routine Given 09/16/2015 2:02 PM EDT 6 mg Given 09/16/2015 1:29 PM EDT 4 mg Given 09/16/2015 1:20 PM EDT 4 mg fentaNYL 50 mcg/mL multi-dose injection PRN, Starting on 09/16/15 at 1150, Until 09/16/15 at 1519, Pain, Anesthesia Intra-op, Routine Given 09/16/2015 3:12 PM EDT 50 mcg Given 09/16/2015 2:51 PM EDT 50 mcg Given 09/16/2015 12:38 PM EDT 100 mcg furosemide (LASIX) injection PRN, Starting on 09/16/15 at 1321, Until 09/16/15 at 1519, Anesthesia Intra-op, Routine Given 09/16/2015 1:21 PM EDT 60 mg ganciclovir (CYTOVENE) 126 mg in sodium chloride 0.9% 102.52 mL 126 mg (rounded from 125.875 mg = 1.25 mg/kg/dose ? 100.7 kg), Intravenous, ONCE, 1 dose, On 09/16/15 at 1015, Administer over 60 Minutes, Pharmacy: mix in 0.9% sodium chloride. To be given in the OR., Day of Surgery (Day of Procedure), Indication for (Active or Suspected): Prophylaxis Given 09/16/2015 12:00 PM EDT 126 mg glycopyrrolate (ROBINUL) multi-dose injection PRN, Starting on 09/16/15 at 1447, Until 09/16/15 at 1519, Anesthesia Intra-op, Routine Given 09/16/2015 2:47 PM EDT 0.9 mg labetalol (NORMODYNE,TRANDATE) multi-dose injection PRN, Starting on 09/16/15 at 1445, Until 09/16/15 at 1519, High Blood Pressure, Anesthesia Intra-op, Routine Given 09/16/2015 2:45 PM EDT 5 mg mannitol (less than 50 grams) 25% injection PRN, Starting on 09/16/15 at 1321, Until 09/16/15 at 1519, Anesthesia Intra-op, Routine Given 09/16/2015 1:21 PM EDT 25 g methylPREDNISolone sodium succinate (PF) (solu-MEDROL) 375 mg in sodium chloride 0.9% 56 mL 375 mg, Intravenous, POSTAL SORTING OFFICER TO O.R., 1 dose, On 09/16/15 at 1015, Administer over 30 Minutes, Day of Surgery (Day of Procedure) Given 09/16/2015 11:58 AM EDT 375 g neostigmine (PROSTIGMINE) multi-dose injection PRN, Starting on 09/16/15 at 1447, Until 09/16/15 at 1519, Anesthesia Intra-op, Routine Given 09/16/2015 2:47 PM EDT 5 mg ondansetron (ZOFRAN) injection PRN, Starting on 09/16/15 at 1421, Until 09/16/15 at 1519, Nausea, Anesthesia Intra-op, Routine Given 09/16/2015 2:21 PM EDT 4 mg propofol (DIPRIVAN) 10 mg/mL bolus injection (Anesthesia) PRN, Starting on 09/16/15 at 1150, Until 09/16/15 at 1519, Anesthesia Intra-op Given 09/16/2015 11:52 AM EDT 50 mg Given 09/16/2015 11:50 AM EDT 150 mg sodium chloride 0.9% infusion CONTINUOUS PRN, Starting on 09/16/15 at 1138, Until 09/16/15 at 1519, Anesthesia Intra-op New Bag 09/16/2015 1:09 PM E DT New Bag 09/16/2015 11:38 AM EDT sodium chloride 0.9% infusion CONTINUOUS PRN, Starting on 09/16/15 at 1156, Until 09/16/15 at 1519, Anesthesia Intra-op New Bag 09/16/2015 1:23 PM E DT New Bag 09/16/2015 11:56 AM EDT succinylcholine (ANECTINE) injection PRN, Starting on Thu09/16/15 at 1150, Until 09/16/15 at 1519, Anesthesia Intra-op, Routine Given 09/16/2015 11:50 AM EDT 140 mg vancomycin 1 g in dextrose 5% 200 mL 1,000 mg (1 g), Intravenous, ONCE, 1 dose, On 09/16/15 at 1015, Give over 60-90 minutes. Do not exceed 1 gram/hour. Vancomycin should be administered within 2 hours prior to incision. To be given in the OR. . Maximum infusion rate is 1 gram/hour. If flushing of the face, neck, upper body, arms, and/or back occurs decrease infusion rate by 50% to reduce the severity of symptoms. This medication may have an associated drug lab level. Please see MAR for scheduled level., STAT Given 09/16/2015 11:55 AM EDT 1 g documented in this encounter Care Teams News Videographer Relationship Specialty Start Date End Date Urbano Denis DO [address] [place] [address] [address] [place] [address] PCP - General 09/03/12 03/17/22 Hai STANLEY,Ruchi Nurse Clinic Transplant Surgery 07/30/15 documented as of this encounter
--- OUTSIDE RECORDS SUMMARY | 2024-02-14 11:36 | XMS_ITS | Encounter Summary ---
Author Organization [facility] [place] [address] Care Team Providers Care Preschool Assistant Principal Name Role Phone Urbano Denis DO Primary Care Provider Encounter Details Date Type Department Care Team (Late st Contact Info) Description 09/24/2015 Telephone [place] [phone] Samia Escalante, RN Social History Tobacco Use [...] Telephone Encounter - Samia Escalante, RN - 09/24/2015 10:00 AM EDT Spoke to pt's this morning to discuss patient's condition over the weekend. Pt's had questions about pt's central line and flushing. Advised pt's that she should flush pt's line with heparin/saline today, and it will likely be removed tomorrow. Pt is starting his Doxycycline today, and had his last Rochephin dose yesterday. His tells me that they forgot his Cellcept in his pill box last night, but that pt received all of his other medication. I advised his that they should NOT double-up on his medications, andhe should take his morning dose as scheduled. She understands. Pt's vitals have been stable over the weekend: Thursday: T: 96.8F P: 62 BP: 180/70 I: 1,740cc O: 1,925cc Thursday: T: 96.7F P: 56 BP: 150/80 I: 2,100cc O: 2,275cc This morning: T: 96.5F P: 56 BP: 150/80 Pt will be back in clinic tomorrow with a full set of lab work. Pt's stated understanding thatSam should HOLD his Prograf prior to his lab draw tomorrow morning, but that he may take all of hisother medications. Pt stated understanding of plan of care. No further questions at this time. Advised to call with additional concerns. Samia Escalante RN [facility] [place] Solid Organ Transplant [phone] (Pager: [phone]) documented in this encounter Plan of Treatment Upcoming Encounters Date Type Department Care Team (Late st Contact Info) Description 04/15/2024 10:00 AM EDT Hospital Encounter Non-Invasive [place] [phone] Arrived documented as of this encounter Visit Diagnoses Not on filedocumented in this encounter Care Teams Preschool Assistant Principal Relationship Specialty Start Date End Date Urbano Denis DO [address] [place] [address] PCP - General 09/03/12 03/17/22 Ruchi Valles RN Nurse Clinic Transplant Surgery 07/30/15 documented as of this encounter
--- OUTSIDE RECORDS SUMMARY | 2024-02-14 11:36 | XMS_ITS | Encounter Summary ---
[facility] [place] [address] Care Team Providers Care Theater Education Teacher Name Role Phone Urbano Denis DO Primary Care Provider Encounter Details Date Type Department Care Team (Late st Contact Info) Description 09/19/2015 Orders Only [place] [address] Samia Escalante, RN Social History Tobacco Use [...] AM EDT Hospital Encounter Non-Invasive [place] [address] Arrived documented as of this encounter Visit Diagnoses Not on filedocumented in this encounter Care Teams Theater Education Teacher Relationship Specialty Start Date End Date Urbano Denis DO [address] [place] [address] PCP - General 09/03/12 03/17/22 Hai STANLEY,Ruchi Nurse Clinic Transplant Surgery 07/30/15 documented as of this encounter
--- OUTSIDE RECORDS SUMMARY | 2024-02-14 11:36 | XMS_ITS | Encounter Summary ---
[facility] [place] [address] Care Team Providers Care Cleaning Attendant Name Role Phone Urbano Denis DO Primary Care Provider Encounter Details Date Type Department Care Team (Late st Contact Info) Description 09/21/2015 External Results [place] [address] Social History Tobacco Use Types Packs/Day Years [...] AM EDT Hospital Encounter [place] [address] Arrived documented as of this encounter Procedures Procedure Name Priority Date/Time Associated Diagnosis Comments TISSUE TYPING, ABO AND CROSSMATCH Routine 09/15/2015 documented in this encounter Results * Scan Doc: Tissue Typing, ABO,and Crossmatch (09/15/2015) Historical Provider MD PAIZ MGR SCAN EX T ORDR/RSLT documented in this encounter Visit Diagnoses Not on filedocumented in this encounter Care Teams Cleaning Attendant Relationship Specialty Start Date End Date Urbano Denis DO [address] [place] [address] PCP - General 09/03/12 03/17/22 Hai STANLEY,Ruchi Nurse Clinic Transplant Surgery 07/30/15 documented as of this encounter
--- OUTSIDE RECORDS SUMMARY | 2024-02-14 11:36 | XMS_ITS | Encounter Summary ---
[place] [address] Care Team Providers Care Grade Teacher Name Role Phone Albania Nunez DO Primary Care Provider + [phone] Reason for Referral * Consultation (Routine) - Closed Specialty Diagnoses / Procedures Referred By Humberto flor Referred To Contact Infectious Diseases Diagnoses Renal transplant recipient Larry Larkin MD [facility] [place] [address] Brian Grande MD [facility] [place] [address] Referral ID Status Reason Start Date Expiration Date V isits Requested Visits Authorized [id number] Closed Assume Subset of Care 09/18/2015 09/17/2016 1 1 Reason for Visit * Auth/Cert Specialty Diagnoses / Procedures Referred By Humberto flor Referred To Contact Diagnoses RENAL FAILURE Kidney transplant. UNOS #[id number] Procedures PRO TRANSPLANTATION OF KIDNEY PRO TRANSPLANT, PREP CADAVER RENAL GRAFT @KIDNEY TRANSPLANT, WITHOUT RECIPIENT NEPHRECTOMY @PREPARATION CADAVERIC RENAL ALLOGRAFT Referral ID Status Reason Start Date Expiration Date Visits Re quested Visits Authorized [id number] 1 1 Encounter Details Date Type Department Care Team (Latest Contact Info) Description 09/16/2015 9:46 AM EDT - 09/20/2015 3:40 PM EDT Hospital Encounter [address] [phone] Larry Larkin MD [facility] [place] [address] Renal transplant recipient (Primary Dx); ESRD (end stage renal disease) Discharge Disposition: Home with VNA Social History [...] Sign Reading Time Taken Comments Blood Pressure 170/82 09/20/2015 11:25 AM EDT Pulse 54 09/20/2015 11:25 AM EDT Temperature 36.3 ??C (97.3 ??F) 09/20/2015 1 1:25 AM EDT Respiratory Rate 18 09/20/2015 11:2 5 AM EDT Oxygen Saturation 95% 09/20/2015 11: 25 AM EDT Inhaled Oxygen Concentration - - Weight 105.7 kg (233 lb 0.4 oz) 09/20/2015 3:53 AM EDT Height 177.8 cm (5' 10) 09/16/2015 9:48 AM EDT Body Mass Index 33.44 09/16/2015 9:48 AM EDT documented in this encounter Discharge Summaries * Dyan Rodriguez - 09/19/2015 12:44 PM EDT General Surgery Inpatient - Discharge Summary Patient Name: Ethel Bolden Patient Age: 65 y.o. Birthdate: 1950 Admit date: 09/16/2015 Discharge date: 09/20/2015 Attending Physician: Larry Larkin MD Primary Diagnosis: donor kidney transplant Secondary Diagnosis: Patient Active Problem List Diagnosis Code ??? DM type 2 (diabetes mellitus, type 2) E11.9 ??? Hypertension I10 ??? DJD (degenerative joint disease) M19.90 ??? ESRD (end stage renal disease) N18.6 ??? HCV (hepatitis C virus) B19.20 ??? CGN (chronic glomerulonephritis) N03.9 ??? Chronic kidney disease, stage V N18.5 Operations/Major Procedures: Operations: 09/16/2015 Surgeon(s) and Role: * Larry Larkin MD - Primary * Marcus Saravia MD: Procedure(s): @KIDNEY TRANSPLANT, WITHOUT RECIPIENT NEPHRECTOMY @PREPARATION CADAVERIC RENAL ALLOGRAFT ORGAN ACQUISITION RENAL, CADAVERIC Follow-up Recommendations for Providers: 1. donor kidney transplant; donor had positive Group C Strep bacteremia and question of a tick bite with a bullseye rash. These have been addressed with prophylactic antibiotics, however, bemindful of evolving signs/symptoms of infection. 2. Tunneled central line placed on 09/19/2015, the day prior to discharge, in order to provide access for IV antibiotics upon discharge. Once the regimen is completed, this line will need to be removed. 3. Will need to follow-up with hepatology in 3 weeks from now for further evaluation and possible treatment of HCV. HPI: Mr. Bolden is a 65 M is a dialysis dependant male with a history of hep C infection. His ESRD is presumably due to hypertension. He has no evidence of sequale from his hep C and was recently evaluated and cleared by hepatology using a fibroscan.?? He is interested in proceeding with transplantation. 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 He was initially evaluated for kidney transplantation on 07/17/15 and was activated on the recipient list on 09/07/15. Last dialysis was on Thursday09/14/15. He still does produce urine. He has been off his Plavix since 09/05/15. Hospital Course: Ethel Bolden was taken to the operating room where the above procedures were performed. He tolerated the operation well and without complication. He was admitted post-operatively for observationand management. His immunosuppression was induced with Simulect, which was dosed intra-operatively and on POD#4. He was also started on Cellcept 750mg BID. On POD#3 he was started on Tacrolimus 1mg BID. His dose will be adjusted based on his tacrolimus levels; he will be discharged on 2mg BID. He is also being treated with a long steroid taper, and will be discharged home on 20mg daily of prednisone. Overnight on POD#0-1 he required a 1L fluid bolus for low urine output, and again on the morning ofPOD#1 he required 500cc for low urine output. His creatinine at this time was 6.9. However, overnight POD#1-2 his urine output picked up and by POD#3 his creatinine was 3.25. He was making over 2L ofurine per day. His whaley was removed on POD#3 with adequate return of spontaneous voiding and low post-void residuals. Of note, Infectious Disease was consulted during Mr. Bolden's stay because his kidney donor was [facility] high risk donor, and had known Group C Strep bacteremia prior to donation, which was treated with antibiotics and his blood cultures were negative on the day of donation. Moreover, the donor had a story consistent with possible Lyme disease, with a tick bite and subsequent bullseye rash, and hedid not receive treatment for this. Surveillance post-transplant blood cultures in the recipient remain NGTD.?? The Lyme serologies came back negative in the donor. Nevertheless, particularly given his regimen of immunosuppressive medications, he was started on broad spectrum coverage before being narrowed to a 7-day course of IV Ceftriaxone 2g Q24H. He will complete this course as an outpatient.He will also complete 10 days of Doxycycline for full Lyme prophylaxis, to start after completion of his Ceftriaxone course. In addition, we spoke with Dr. Marcelo (Hepatology) about the Hep C positive donor kidney transplant into this Hep C positive recipient.?? He would like to check genotype andPCR testing in one month following the procedure, at which time he will see him in the Hepatology clinic to discuss treatment of the hepatitis C. By POD#4 he was tolerating a regular diet, voiding adequately on his own, ambulating at baseline, and saturating in the mid-90s on room air. His pain was well controlled. His drain was removed on theday of discharge. His labs and urine output demonstrated good renal function. He met criteria for discharge and went home on POD#4. Important Studies and Lab Data: Lab Results Component Value Date SODIUM 144 09/20/2015 POTASSIUM 5.1* 09/20/2015 CHLORIDE 108* 09/20/2015 CO2 23 09/20/2015 BUN 60* 09/20/2015 CREATININE 2.30* 09/20/2015 GLUCOSE LVL 130 09/20/2015 CBC Lab Results Component Value Date WBC 9.5 09/20/2015 HEMOGLOBIN 9.4* 09/20/2015 HEMATOCRIT 27.5* 09/20/2015 PLATELETS 234 09/20/2015 Mag 0.89 Phos 3.0 Ca 9.0 Microbiology (09/17/15): Blood cultures x2 - no growth x 2 days Renal Ultrasound (09/17/15): 1. Resistive indices are elevated, possibly representing ATN in ??this recently transplanted kidney. ??2. No compressive extrarenal mass or hydronephrosis. ??3. No evident thrombosis or stenosis in the renal artery or vein. Exam: Temp: [36.3 ??C (97.3 ??F)-36.5 ??C (97.7 ??F)] Heart Rate: [51-62] Resp: [11-22] BP: (137-174)/(46-120) SpO2: [92 %-98 %] RA I/O last 3 completed shifts: In: 4047 [P.O.:3030; I.V.:1017] Out: 3995 [Urine:3875; Other:120] Gen: NAD, oriented x3 Pulm: CTAB, no crackles/wheezes Card: RRR, no m/r/g Abd: Non-distended, soft, mildly tender. Incision c/d/i closed with alessandro, no drainage or surrounding erythema Ext: no edema, 2+ peripheral pulses Discharge to: Home with VNA Discharge Conditions/Prognosis: Stable Discharge Medications: The following medications have been prescribed for you. If you notice any adverse reactions to your medications, please contact your primary care physician immediately or go tothe nearest Emergency Department. Your Medications New Medications Dose Details acetaminophen 325 mg Tab Commonly known as: TYLENOL Take 2 tablets by mouth every 4 hours as needed for Pain. 650 mg Quantity: 30 tablet Refills: 1 DILTiazem 120 mg Cp24 Commonly known as: DILTIAZEM CD Take 1 capsule by mouth daily. 120 mg Quantity: 30 capsule Refills: 11 doxycycline 100 mg Tab Commonly known as: VIBRA-TABS Take 1 tablet by mouth 2 times daily for 10 days. 100 mg Quantity: 20 tablet Refills: 0 mycophenolate 250 mg Cap Commonly known as: CELLCEPT Take 3 capsules by mouth 2 times daily. Kidney replaced by transplant 09/16/2015. Z94.0 750 mg Quantity: 180 capsule Refills: 11 nystatin 100,000 unit/mL Susp Commonly known as: MYCOSTATIN Swish and swallow 5mL after meals and at bedtime. Quantity: 473 mL Refills: 1 oxyCODONE 5 mg Tab Commonly known as: ROXICODONE Take 1-2 tablets every 6 hours as needed for pain. Quantity: 50 tablet Refills: 0 pantoprazole 40 mg Tbec Commonly known as: PROTONIX Take 1 tablet by mouth daily. 40 mg Quantity: 30 tablet Refills: 11 polyethylene glycol 17 gram Pwpk Commonly known as: MIRALAX Take 17 g by mouth daily. 17 g Quantity: 14 each Refills: 0 potassium phosphate (monobasic) 500 mg Tbso Commonly known as: K-PHOS ORIGINAL Take 1 tablet by mouth 4 times daily. 500 mg Quantity: 120 tablet Refills: 11 predniSONE 5 mg Tab Commonly known as: DELTASONE Take 4 tablets by mouth daily. 20 mg Quantity: 120 tablet Refills: 11 PROGRAF 1 mg Cap Take 5 capsules by mouth twice daily. KIDNEY TRANSPLANT Z94.0. TRANSPLANT DATE: 09/16/2015 Generic drug: tacrolimus Quantity: 300 capsule Refills: 11 sulfamethoxazole-trimethoprim 400-80 mg Tab Commonly known as: BACTRIM;SEPTRA Take 1 tablet by mouth daily for 364 days. 1 tablet Quantity: 30 tablet Refills: 11 valGANciclovir 450 mg Tab Commonly known as: VALCYTE Take 2 tablets by mouth daily for 183 days. 900 mg Quantity: 60 tablet Refills: 6 Continued medications, unchanged Dose Details carvedilol 6.25 mg Tab Commonly known as: COREG Take 12.5 mg by mouth 2 times daily (with meals). 12.5 mg Refills: 0 clopidogrel 75 mg Tab Commonly known as: PLAVIX Take 1 tablet by mouth daily. 75 mg Quantity: 30 tablet Refills: 0 doxazosin 4 mg Tab Commonly known as: CARDURA Take 1 tablet by mouth nightly. 4 mg Quantity: 90 tablet Refills: 3 levothyroxine 50 mcg Tab Commonly known as: SYNTHROID Take 50 mcg by mouth daily. 50 mcg Refills: 0 ONETOUCH DELICA LANCETS 30 gauge Misc Generic drug: lancets Refills: 0 ONETOUCH ULTRA TEST Strp Generic drug: blood sugar diagnostic strips Refills: 0 ONETOUCH ULTRAMINI Kit Generic drug: blood-glucose meter Refills: 0 pravastatin 20 mg Tab Commonly known as: PRAVACHOL Take 20 mg by mouth daily. 20 mg Refills: 0 STOPPED Medications calciTRIol 0.25 mcg Cap Commonly known as: ROCALTROL furosemide 80 mg Tab Commonly known as: LASIX hydrALAZINE 25 mg Tab Commonly known as: APRESOLINE magnesium oxide 400 mg Tab Commonly known as: MAG-OX omeprazole 20 mg Cpdr Commonly known as: PriLOSEC spironolactone 25 mg Tab Commonly known as: ALDACTONE Updated Allergies/ADRs: No Known Allergies PCP: ALBANIA NUNEZ DO Scheduled Appointments: The following appointments have been scheduled on your behalf: Future Appointments Date Time Provider Department Center 09/25/2015 9:00 AM TRANSPLANT, COORDINATOR [address] 09/25/2015 10:30 AM Larry Larkin MD [address] Outpatient Services/Studies: OPAT: Order / Recommendation for Post Discharge IV Antibiotic Management Referral Priority: Routine Referral Type: Consultation Referral Reason: Assume Subset of Care Referred to Provider: BRIAN GRANDE Number of Visits Requested: 1 Referral to Home Health - at DISCHARGE Order Comments: DISCHARGE DOCUMENTATION FOR VNA SERVICES (INCLUDING THOSE PATIENTS WITH MEDICARE COVERAGE BEING DISCHARGED HOME WITH VNA SERVICES AND THOSE PATIENTS WITH MEDICARE COVERAGE WHO ARE BEING DISCHARGED HOME WITH HOSPICE SERVICES) In discussion with the attending physician, it is certified that this patient is under their care and that they, or a nurse practitioner, clinical nurse specialist or physician's assistant operations manager who is working directly with them, had a face to face encounter that meets the physician face to face encounter requirements with this patient on 09/19/2015 The encounter with the patient was in whole, or in part, for the following medical condition, whichis the primary reason for home health care services: [ ESRD, on HD at [facility] HD Thu/Thu/Thursday since January 2015. OR on 09/16/15 donor kidney transplant. ] In discussion with the primary medical team, it is certified that, based on their findings, the indicated services are medically necessary and appropriate for home health services. FOR MEDICARE ONLY: In discussion with the attending physician, it is certified that the clinical findings support thatthis patient is homebound ;i.e. absences from home require considerable and taxing effort due to: post-op weakness, deconditioning. Please note that any additional orders needs or changes will need to be obtained from [facility] Transplant Clinic [phone] or from this patient's PCP: ALBANIA NUNEZ, [address] [place] [address] All VNA agencies which cover the area of patient's residence have been reviewed, either verbally greg writing, and patient/family have chosen the indicated home health care agency for home services. [facility]. PHONE: [phone] FAX: [phone] RN visits to begin on day after patient's discharge to home, if possible. RN visits 3-4times/week for post-operative assessment, checking for signs and symptoms of infection. Assess nutrition and hydration/abdomen/stooling pattern. Check weight and intake/output records. Reinforcement of teaching about LEEANNA drain care/emptying and recording amount of drainage. Cardio-pulmonary assessment. Medication review. Central line care per [facility] OPAT protocol. Reinforcement of teaching about IV antibiotic administration. Question Response Notes Agency name and contact information [facility] Patient location post discharge home What services are requested Registered Nurse Responsible MD post discharge contact info [facility] Dr. Larry Larkin and PCP Albania Nunez Referral for Outpatient Antibiotics Question Response Notes Vendor / contact information [facility] Patient location post discharge home Service requested Central line care per OPAT protocol and IV antibiotic Responsible MD post discharge contact info [facility] Dr. Larry Larkin and Dr. Brian Grande and PCP Albania Nunez Instructions Given to Patient at Discharge:. An After Visit Summary was printed and given to the patient. Patient Instructions Discharge Instructions CALL YOUR PHYSICIAN IF: ??? You have a fever greater than 101 degrees Farenheit within one month of your surgery. ? ? You have diarrhea or vomiting for >24 hours, or stop having bowel movements and passing flatus ??? You have worsening pain, not controlled with your pain medication. ??? You develop redness, swelling, or new drainage from your wound. Prescriptions*: -You have been prescribed narcotic pain medications (such as Percocet, Vicodin, Oxycodone or Dilaudid) to control your discomfort after surgery. ? DO NOT use alcohol, drive, or operate heavy or complex machinery while taking these medications. ? Narcotic pain medications may cause constipation. ? Stool softeners, such as Colace; mild laxatives, such as Milk of Magnesia, Sennakot, or Ducolax tabs; or enemas may be used if needed and are ounb-nyl-ajsbwbp (OTC) medications available at most local pharmacies. Prunes or prune juice, taken daily, can also be helpful for constipation treatment or prevention and are available at most supermarkets. Driving Restrictions*: - No driving if you are too sore from surgery to enter or exit your vehicle comfortably, or if you are too sore to easily check your blind spot. No driving while using prescription pain medications Activities: ? Discuss return to work or school with your surgeon. ? No heavy lifting. You may lift what is comfortable to lift with one arm. Nothing greater than 15 pounds until re-evaluated by your physician. Diet: ? Eat a well-balanced diet. Fresh fruits, vegetables and fiber-containing foods are recommended. This will assist in wound healing. ? Remember to record your daily intake and output. Please drink at least 2 liters of fluid each dayand match your urine output with equal fluid intake. Medications: - You have been given several medications, many of them will be new to you. Please use the Green Medicine sheet provided to you by the Component Overhaul Operator to guide your daily doses. If you did notreceive some medications from the pharmacy at [facility] it is likely because they are over the counter (eg. Magnesium or stool softeners). Recommendations: ? Take it easy for two weeks. Remember, If it hurts, don't do it. ? Take several slow, short walks each day for the first two weeks, and gradually increase your distance. We recommend at least 4 times a day. Wound Care: ? You can shower per usual routine and wash the incision area gently. Pat incision dry with a clean, dry towel. ? Do not submerge the wound under water (avoid spas, pools and bathtubs) until it is fully healed. ? Do not use creams, oils, or ointments on the wound. ? Keep the wound open to air if it is not draining. ? See follow-up appointments below for removal of sutures/alessandro. Comfort: ? Some incision soreness can be expected. ? Take your pain medication as needed and prescribed. ? Taper use of pain medication as pain lessens. Follow-up Appointments: A Follow-up appointment will be scheduled with the Transplant Surgery Outpatient Clinic - [address] in 2-4 days. You will recieve a letter in the mail and/or a phone call with information about this appointment. Please call [phone] (clinic number for appointments) to confirm date and time of your appointment, or if you do not receive information about your appointment in a timely manner. Before each appointment with the transplant clinic you will report to the lab for blood work, 1 hour before your appointment time. If you are taking Tacrolimus (Prograf), please do not take your morning dose until you have your blood drawn. You may bring the pill with you and take it after your blood work. Your surgeon may not be Clothing Sales Assistant, especially during the night or on weekends, so be ready to describe yourself and your surgery when you call. General Instructions Office of Care Management/Web Marketing Analyst(CM) Home IV Antibiotic Therapy Referral Note. Report received from Dr. Brian Grande that patient will require continued home IV antibiotic therapyafter discharge from the hospital. Met with patient/family to discuss vendor and visiting nurse choices for home IV antibiotic therapy. Reviewed Home Infusion Vendors and Home Health Agencies that serve patient???s address and accept patient???s insurance. Home Health Agency: Patient requested referral to [facility] PHONE: [phone] FAX: [phone] Referrals sent via edischarge. Home Infusion Vendor: Patient requested referral to [place], [place] or Referrals sent via edischarge. Diabetic Status: Patient is a diabetic. IV access: Type of line: Tunneled CVC Date placed: 09/19/15 CM signature Ruchi Tang RN Pager# [phone] [facility] Vascular/Interventional Radiology DISCHARGE INSTRUCTIONS FOR TUNNELED CENTRAL VENOUS CATHETER CARE Bandage: There is a sterile dressing over the catheter site consisting of a small gauze with a clear dressing ( Tegaderm) over it. This dressing will be changed or removed by the hospital staff, and you should not change it at home. If the clear dressing becomes loose, you should place tape over the edges to secure it in place. Never touch the open end of the CVC when the cap has been removed. Bathing: You may shower 72 hours after the catheter has been inserted. When you shower or bathe, you must cover the site with a waterproof material, such as plastic wrap, taped over the dressing and injection caps. Pain: Apply ice bag to site (s) at 30 minute intervals (30 minutes on and 30 minutes off) for 24 hours?? . May use as needed for pain and/or bruising after 24 hours. When to call your healthcare provider: ?? If you develop pain, redness, drainage of swelling at the catheter or neck puncture site. ?? If you develop a fever of 101 degrees or greater. ?? If you develop shaking chills. ?? If the catheter breaks, or you notice leaking from one of the ports or the catheter itself. ?? If you notice bleeding from the catheter or the neck puncture sites, apply firm pressure over both sites simultaneously for 10-15 minutes. If you are still bleeding after 10-15 minutes, have someone drive you to the nearest Emergency Department or call 911. When to call the Interventional Radiology Department: Please call with any questions or concerns. If it is during regular working hours, please call [phone]. If it is after 5 pm or a weekend or holiday, call [phone] and ask for the Inspector Fibrous Wallboard marine service station attendant for Interventional Radiology. You have received medication during your procedure to help lesson anxiety and keep you comfortable.We recommend that you do not drive, operate equipment, sign any important documents, or smoke unattended for 24 hours following your procedure. You may have received medication before and/or during your procedure, which affects judgement and reaction time. Be careful on stairs, as you may be unsteady on your feet. You may eat a regular diet as tolerated IV site -- slight redness, or tenderness is normal, you can use a warm compress. If tenderness and redness increases or foul drainage occurs, please contact your M. D. Updated 07/20/15 CC: ALBANIA NUNEZ DO Signed: DYAN RODRIGUEZ MD Transplant Surgery Service 09/20/2015 documented in this encounter Discharge Instructions * Discharge Instructions* Tal Paulson RN - 09/19/2015 4:12 PM EDT Office of Care Management/Web Marketing Analyst(CM) Home IV Antibiotic Therapy Referral Note. Report received from Dr. Brian Grande that patient will require continued home IV antibiotic therapyafter discharge from the hospital. Met with patient/family to discuss vendor and visiting nurse choices for home IV antibiotic therapy. Reviewed Home Infusion Vendors and Home Health Agencies that serve patient???s address and accept patient???s insurance. Home Health Agency: Patient requested referral to [facility] PHONE: [phone] FAX: [phone] Referrals sent via edischarge. Home Infusion Vendor: Patient requested referral to [place], [place] or Referrals sent via edischarge. Diabetic Status: Patient is a diabetic. IV access: Type of line: Tunneled CVC Date placed: 09/19/15 CM signature Ruchi Tang RN Pager# [phone] [facility] Vascular/Interventional Radiology DISCHARGE INSTRUCTIONS FOR TUNNELED CENTRAL VENOUS CATHETER CARE Bandage: There is a sterile dressing over the catheter site consisting of a small gauze with a clear dressing ( Tegaderm) over it. This dressing will be changed or removed by the hospital staff, and you should not change it at home. If the clear dressing becomes loose, you should place tape over the edges to secure it in place. Never touch the open end of the CVC when the cap has been removed. Bathing: You may shower 72 hours after the catheter has been inserted. When you shower or bathe, you must cover the site with a waterproof material, such as plastic wrap, taped over the dressing and injection caps. Pain: Apply ice bag to site (s) at 30 minute intervals (30 minutes on and 30 minutes off) for 24 hours?? . May use as needed for pain and/or bruising after 24 hours. When to call your healthcare provider: ?? If you develop pain, redness, drainage of swelling at the catheter or neck puncture site. ?? If you develop a fever of 101 degrees or greater. ?? If you develop shaking chills. ?? If the catheter breaks, or you notice leaking from one of the ports or the catheter itself. ?? If you notice bleeding from the catheter or the neck puncture sites, apply firm pressure over both sites simultaneously for 10-15 minutes. If you are still bleeding after 10-15 minutes, have someone drive you to the nearest Emergency Department or call 911. When to call the Interventional Radiology Department: Please call with any questions or concerns. If it is during regular working hours, please call [phone]. If it is after 5 pm or a weekend or holiday, call [phone] and ask for the Inspector Fibrous Wallboard marine service station attendant for Interventional Radiology. You have received medication during your procedure to help lesson anxiety and keep you comfortable.We recommend that you do not drive, operate equipment, sign any important documents, or smoke unattended for 24 hours following your procedure. You may have received medication before and/or during your procedure, which affects judgement and reaction time. Be careful on stairs, as you may be unsteady on your feet. You may eat a regular diet as tolerated IV site -- slight redness, or tenderness is normal, you can use a warm compress. If tenderness and redness increases or foul drainage occurs, please contact your M. D. Updated 07/20/15 * Patient Instructions* Dyan Rodriguez - 09/19/2015 12:44 PM EDT Discharge Instructions CALL YOUR PHYSICIAN IF: ??? You have a fever greater than 101 degrees Farenheit within one month of your surgery. ? ? You have diarrhea or vomiting for >24 hours, or stop having bowel movements and passing flatus ??? You have worsening pain, not controlled with your pain medication. ??? You develop redness, swelling, or new drainage from your wound. Prescriptions*: -You have been prescribed narcotic pain medications (such as Percocet, Vicodin, Oxycodone or Dilaudid) to control your discomfort after surgery. ? DO NOT use alcohol, drive, or operate heavy or complex machinery while taking these medications. ? Narcotic pain medications may cause constipation. ? Stool softeners, such as Colace; mild laxatives, such as Milk of Magnesia, Sennakot, or Ducolax tabs; or enemas may be used if needed and are jkyp-cel-phgjbei (OTC) medications available at most local pharmacies. Prunes or prune juice, taken daily, can also be helpful for constipation treatment or prevention and are available at most supermarkets. Driving Restrictions*: - No driving if you are too sore from surgery to enter or exit your vehicle comfortably, or if you are too sore to easily check your blind spot. No driving while using prescription pain medications Activities: ? Discuss return to work or school with your surgeon. ? No heavy lifting. You may lift what is comfortable to lift with one arm. Nothing greater than 15 pounds until re-evaluated by your physician. Diet: ? Eat a well-balanced diet. Fresh fruits, vegetables and fiber-containing foods are recommended. This will assist in wound healing. ? Remember to record your daily intake and output. Please drink at least 2 liters of fluid each dayand match your urine output with equal fluid intake. Medications: - You have been given several medications, many of them will be new to you. Please use the Green Medicine sheet provided to you by the Component Overhaul Operator to guide your daily doses. If you did notreceive some medications from the pharmacy at [facility] it is likely because they are over the counter (eg. Magnesium or stool softeners). Recommendations: ? Take it easy for two weeks. Remember, If it hurts, don't do it. ? Take several slow, short walks each day for the first two weeks, and gradually increase your distance. We recommend at least 4 times a day. Wound Care: ? You can shower per usual routine and wash the incision area gently. Pat incision dry with a clean, dry towel. ? Do not submerge the wound under water (avoid spas, pools and bathtubs) until it is fully healed. ? Do not use creams, oils, or ointments on the wound. ? Keep the wound open to air if it is not draining. ? See follow-up appointments below for removal of sutures/alessandro. Comfort: ? Some incision soreness can be expected. ? Take your pain medication as needed and prescribed. ? Taper use of pain medication as pain lessens. Follow-up Appointments: A Follow-up appointment will be scheduled with the Transplant Surgery Outpatient [facility] - [address] in 2-4 days. You will recieve a letter in the mail and/or a phone call with information about this appointment. Please call [phone] (clinic number for appointments) to confirm date and time of your appointment, or if you do not receive information about your appointment in a timely manner. Before each appointment with the transplant clinic you will report to the lab for blood work, 1 hour before your appointment time. If you are taking Tacrolimus (Prograf), please do not take your morning dose until you have your blood drawn. You may bring the pill with you and take it after your blood work. Your surgeon may not be Clothing Sales Assistant, especially during the night or on weekends, so be ready to describe yourself and your surgery when you call. documented in this encounter Medications at Time of Discharge Medication Sig Dispensed Refills Start Date End Date acetaminophen (TYLENOL) 325 mg Tablet Take 2 tablets by mouth every 4 hours as needed for Pain. 30 tablet 1 09/20/2015 04/23/2016 polyethylene glycol (MIRALAX) 17 gram Powder in Packet Take 17 g by mouth daily. 14 each 0 09/20/2015 01/03/2016 doxycycline (VIBRA-TABS) 100 mg Tablet Take 1 tablet by mouth 2 times daily for 10 days. 20 tablet 0 09/19/2015 09/29/2015 oxyCODONE (ROXICODONE) 5 mg Tablet Take 1-2 tablets every 6 hours as needed for pain. 50 tablet 0 09/19/2015 09/25/2015 nystatin (MYCOSTATIN) 100,000 unit/mL Suspension Swish and [...] times daily. 120 tablet 11 09/17/2015 11/08/2015 levothyroxine (SYNTHROID) 50 mcg Tablet Take 75 mcg by mouth daily. 09/25/2015 clopidogrel (PLAVIX) 75 mg Tablet Take 1 tablet by mouth daily. 30 tablet 0 05/12/2015 05/28/2016 carvedilol (COREG) 6.25 mg Tablet Take 12.5 mg by mouth 2 times daily (with meals). 10/05/2015 pravastatin (PRAVACHOL) 20 mg Tablet Take 20 mg by mouth daily. 09/25/2015 ONE TOUCH ULTRA TEST Strip 0 04/28/2014 01/28/2016 ONE TOUCH ULTRAMINI Kit 0 04/28/2014 01/28/2016 ONE TOUCH DELICA LANCETS 30 gauge Misc 0 04/28/20142015 doxazosin (CARDURA) 4 mg Tablet Take 1 tablet by mouth nightly. 90 tablet 3 05/22/2014 10/05/2015 documented as of this encounter Progress Notes * Nicole Soares - 09/20/2015 4:12 PM EDT Physical Therapy Treatment Note Visit #: 3 Patient Dx: Ethel Bolden is a 65 y.o. male admitted on 09/16/2015 by Larry Angulo MD with PMH significant for DMII, HTN, HCV (with clearance of HCV on fibroscan) with hemodialysis dependent ESRD whopresents today for donor kidney transplantation. He was initially evaluated for kidney transplantation on 07/17/15 and was activated on the recipient list on 09/07/15. Last dialysis was on Thursday. He still does produce urine. He has been off his Plavix since 09/05/15. 09/16/15 OR Procedure(s): @KIDNEY TRANSPLANT, WITHOUT RECIPIENT NEPHRECTOMY @PREPARATION CADAVERIC RENAL ALLOGRAFT PMH: Past Medical History Past Medical History?? Diagnosis?? Date? Type 2 diabetes mellitus? HTN (hypertension)? ESRD (end stage renal disease)? Microhematuria? Colon polyp? GERD (gastroesophageal reflux disease)? Back pain? CVA (cerebral vascular accident)? Per report but no deficits?? Past Surgical History Past Surgical History?? Procedure?? Laterality?? Date? Pro anastomosis, av, any site?? Left?? 05/09/2015? AV FISTULA CREATION,?? DIRECT HEMODIALYSIS, ANY SITE, EG ASHWINI FISTULA UPPER EXTREMITY performed by Que Amaro MD at [facility] OR? Pro transplantation of kidney?? N/A?? 09/16/2015? @KIDNEY TRANSPLANT, WITHOUT RECIPIENT NEPHRECTOMY performed by Larry Larikn MD at [facility] OR? Pro transplant, prep cadaver renal graft?? N/A?? 09/16/2015? @PREPARATION CADAVERIC RENAL ALLOGRAFT performed by Larry Larkin MD at [facility] OR? N/A?? 09/16/2015? ORGAN ACQUISITION RENAL, CADAVERIC performed by Larry Larkin MD at [facility] OR?? Social History: Patient lives with spouse in [place], [place].?? He reports he & not working so available to help prn.?? He reports living in a log cabin with master bedroom and BR on main level with 4 steps to enter. Baseline Mobility: Independent ambulater without any device, driving self to dialysis. Precautions: Full code status Activity Orders: OOB to chair Staff communication/Mobility Recommendations: 1. Pt. to utilize supervision x 1 of staff for ambulation, amb in hallway 3x/day. ?? 2. Please encourage up to chair for meal times as able. Interval History: No acute events S: I was about to nap, but I will do anything you ask O: Patient seen for 23 mins for functional activity to address goals. Pt demonstrated the following ?? Patient in bed upon arrival; agreeable to PT ?? Supine to sit: independent ?? Sit to stand: independent ?? Ambulated 150', no AD, steady pace, no LOB, superivision ?? Ascended/descended 4 stairs using 1 rail and supervision, no LOB ?? Patient left in bed, all needs met, nursing made aware Pain: No c/o pain Education: Pt/family education ongoing re d/c planing, safety, role of PT A: Patient demonstrated safe independence with transfers, ambulation and stairs. Patient plans to return home with assist from . All goals met. s Physical Therapy Goals: To be achieved by [id number]. ? 3. Pt. to perform bed mobility on his own, HOB may be up as his bed @ home inclines.- MET 4. Pt. to perform sit >< stand transfers (I).?? - MET 5. Pt. to ambulate 3x/day at least 100 feet without need for assistive device (I), supervised.- MET 6. Pt. to ambulate up/down 4 step/stairs safely to enter/exit home. MET Discharge Recommendations: Based on the current findings noted during this evaluation, patient could benefit from Home withoutfurther Skilled Therapy when medically ready for hospital discharge. ?? This recommendation is based on the patient's Potential to return to prior level of function and may change based on patient progress during this hospitalization. Equipment needs:?? No equipment needs identified @ this time. P: Pt to be seen 1 more visit for therapy including gait on stairs prior to d/c.?? Patient agrees with plan as stated above Total time spent with patient: 23 minutes Total timed interventions: 23 minutes Pager: [phone] Nicole Soares Physical Therapy Rehabilitation Department * Pauline Miles, RN - 09/20/2015 3:36 PM EDT Patient Name: Ethel Bolden Patient Age: 65 y.o. Birthdate: 1950 Admit date: 09/16/2015 Attending Physician: Larry Larkin MD Yash left unit via wheelchair with . AVS reviewed with pt. Hard copy provided. No questions at this time. Pt will have VNA, discharge summary and AVS faxed to [facility]. Follow up phone call made. * Samia Escalante RN - 09/20/2015 3:25 PM EDT Met with pt and his today to do the majority of pt's post-transplant teaching. We discussed many topics including his immunosuppressive state, rationale behind the antibiotic medications he will be taking, the immunosuppressives and the reason for holding his prograf dose priorto clinic lab draws, and the follow-up appointment schedule. His , Mundo, and I filled his pill box together through Thursday. She understands the layout of his medication sheet and does not have questions. Pt understands he has a bladder stent in place and he is to keep his voids under 300cc each and whythis is so important given the healing anastomosis site. He has begun tracking his I&O's and understands why this is so important for the first few weeks. He has all necessary equipment to take his vitals and does not have questions about proper procedure for any of those tasks. Pt has two dogs at home, no cats. I will be calling pt and his tomorrow to address any questions and check on pt's condition. They do not have questions at this time and feel comfortable with their responsibilities at home. Samia Escalante RN [facility] Solid Organ Transplant [phone] (Pager: [phone]) * Kyle Huizar, BANK ADVISOR - 09/20/2015 12:47 PM EDT Interventional Radiology Inpatient- Progress Note Post procedure day 1 s/p placement of tunneled RIJ single lumen CVC Responsible Attending: Larry Larkin MD Problem List: Active Hospital Problems Diagnosis ??? Renal failure Resolved Hospital Problems Diagnosis Date Resolved No resolved problems to display. Active Non-Hospital Problems Diagnosis ??? Chronic kidney disease, stage V ??? HCV (hepatitis C virus) ??? ESRD (end stage renal disease) ??? Hepatitis C virus infection ??? Essential hypertension ??? CGN (chronic glomerulonephritis) ??? DM type 2 (diabetes mellitus, type 2) ??? Hypertension ??? DJD (degenerative joint disease) ??? Hematuria Time of patient encounter: 629 24 Hour Events: No issues with CVC. Patient slept well and denies pain. Physical Exam: Last Set of Vitals and range of vitals over past 24 hours: Last value Range last 24 hrs Temperature Temp: 36.3 ??C (97.3 ??F) Temp: [36.3 ??C (97.3 ??F)-36.5 ??C (97.7 ??F)] Heart Rate Heart Rate: 54 Heart Rate: [51-62] Blood Pressure BP: 170/82 mmHg BP: (137-178)/(46-120) Respiratory Rate Resp: 18 Resp: [11-22] SpO2 SpO2: 95 % SpO2: [92 %-98 %] GEN: NAD SKIN: The CVC dressing is C/D/I. No bleeding or swelling. Physical Exam Laboratory (Last 24 Hours): CBC Lab Results Component Value Date WBC 9.5 09/20/2015 HEMOGLOBIN 9.4* 09/20/2015 HEMATOCRIT 27.5* 09/20/2015 PLATELETS 234 09/20/2015 Assessment: 65 yo M with DM, HTN, HCV, ESRD s/p renal transplant on 09/16/2015 from donor who had Group C Strep bacteremia prior to organ procurement. A tunneled single lumen CVC was placed 09/19/15 for group home antibiotics. The CVC has not been used, according to nursing. Possible discharge home today. Plan: We will sign off, but would be happy to see patient again for any issues. KYLE HUIZAR APRN 09/20/2015 * Herlinda Bell, RD - 09/20/2015 12:02 PM EDT TRANSPLANT NUTRITION Post-Transplant Discharge Diet Instruction This sba underwriter met with Ethel Bolden a 65 year old male for diet teaching prior to discharge on 09/20/2015 post-kidney transplant. His was also present for the teaching. Diet RX as inpatient: Carb-controlled 60/60/75 Diet teaching done for JAMESON, NCS, low saturated fat/cholesterol diet with high phosphorus, and adequate protein intake for wound healing, to preserve LBM, and prevent infection, and provide adequate hydration. Weight: 105.7kg (233#) Weight on admission: 100.7kg (222#) BMI: 31.9 IBW: 82.7kg; 1st goal should be 93kg, what he weighed some years back. Lab Results Component Value Date HGB 9.4* 09/20/2015 HCT 27.5* 09/20/2015 NA 144 09/20/2015 K 5.1* 09/20/2015 BUN 60* 09/20/2015 CREATININE 2.30* 09/20/2015 GLUCOSE 130 09/20/2015 CALCIUM 9.0 09/20/2015 MAGNESIUM 0.89 09/20/2015 PHOS 3.0 09/20/2015 ALBUMIN 3.1* 09/20/2015 Cholesterol (in eD-H the component name CHLPL=Cholesterol) Lab Results Component Value Date CHLPL 185 12/28/2014 Assessed needs: Nutrition requirements assessed at ~2000kcal and 124gms protein/day. Once his woundis well-healed his protein requirements decrease to ~85gms per day. This sba underwriter stressed importance of adequate hydration and we reviewed the options. Also stressed weight control and carb control in order to maintain appropriate blood glucose levels. Summary/Plan: Discussed diet modifications post-kidney transplant and rationale with patient and . Patient and verbalize good comprehension. Patient should be discharged on a carbohydrate controlled diet. Provided the following printed information with means for contact: Nutrition Issues After Tranplant High Phosphorus Foods List High Magnesium Foods List Options for Adequate Hydration Follow up with patient when returns to Transplant clinic, which is twice per week for the first fewweeks. Remain available for questions/concerns. * Mundo English RPH - 09/20/2015 11:07 AM EDT Inpatient Transplant Medication Discharge Counseling Encounter Date: September 20, 2015 Mr. Ethel Bolden is a 65 y.o. male s/p DDKT transplant POD # 4 Allergies: Review of patient's allergies indicates no known allergies. S: Discussed medications with both and Mrs Bolden in anticipation of discharge. Explained current medication list and potential changes that could be made with each clinic visit based on new labwork and blood pressure results. Discharge Medications as of September 20, 2015: Immunosuppressives: ??? Mycophenolate mofetil (Cellcept) 750 mg PO BID ??? Prednisone slow titration off ??? Tacrolimus dosed twice daily - dose adjusted based on blood levels Antiinfectives: ??? Nystatin Oral Suspension 500,000 units (5 mL) swish and swallow four times daily ??? Sulfamethoxazole/Trimethoprim SS (400 mg-80 mg) one tablet PO once daily ??? Valganciclovir (Valcyte) 900mg daily - dose adjusted based on renal function. Blood Pressure: ??? Diltiazem CD 120 mg PO once daily Other: ??? Magnesium gluconate - dose to be determined at discharge or 1st clinic visit ??? Metoclopramide ??? Potassium phosphate - dose to be determined at discharge or 1st clinic visit ??? Doxycycline 100mg orally twice daily for 10 days ??? Polyethylene glycol (Miralax) one 17g packet daily Home meds to continue ??? Clopidogrel 75 mg daily ??? Carvedilol 12.5 mg twice daily ??? Doxazosin 4 mg daily ??? Levothyroxine 50 mcg daily ??? Pravastatin 20 mg daily ??? Oxycodone 5 to 10 mg every 6 hours as needed for pain Home meds not restarted at this time: ??? hydralazine 25mg tablets ??? Furosemide 80mg tablets ??? Spironolactone 25mg tablets ??? Calcitriol 0.25mcg capsules ??? Omeprazole 20mg capsules Assessment/Plan: ??? Medication education included discussions on the following: ? ? Indication (purpose and estimated duration of therapy), action, & side effects ??? Dose, time of day, and missed doses ??? Signs and symptoms of rejection ??? Previous outpatient medications have been reconciled with new medications ??? Patient was given written information about use, how to take/special instructions, and common side effects of their medications ??? Patient verbalizes understanding of information ??? Informed patient I am available for any medication questions. Contact information was provided to the patient. MUNDO ENGLISH RPH * Samia Escalante RN - 09/19/2015 3:27 PM EDT Attempted to meet with patient x2 this afternoon. He was in interventional radiology during both ofthese attempts. Pt has assured me he is comfortable taking his vitals and I had asked him to begin tracking his fluids. Potential for discharge tomorrow afternoon. I will meet with Mr. Bolden to review his medication list and plan for follow-ups prior to his leaving. Samia Escalante RN [facility] Solid Organ Transplant [phone] (Pager: [phone]) * Therese Carpio RN - 09/19/2015 2:26 PM EDT 1410 To procedure room 2 via stretcher. Onto table in supine position. All monitors, O2, safety strap in place. Med's per protocol. * Herlinda Bell RD - 09/19/2015 11:11 AM EDT TRANSPLANT NUTRITION Post-Transplant Nutrition Visit This sba underwriter met with Ethel Bolden a 65 year old male for nutrition assessment and eventual diet teaching prior to his discharge. Diet RX as inpatient: NPO at present, but has been Carb Control Level 2 Diet teaching to be done for JAMESON, NCS, low saturated fat/cholesterol diet with high phosphorus, andadequate protein intake for wound healing, to preserve LBM, and prevent infection, and provide adequate hydration. Will await his 's presence for the teaching; she will be her in the morning tomorrow. The plan is for discharge to home tomorrow as well. Weight: 105.6kg (232.8#) Weight on admission: 100.7kg (222#) BMI: 31.9 IBW: 82.7kg Lab Results Component Value Date HGB 9.1* 09/19/2015 HCT 27.1* 09/19/2015 NA 142 09/19/2015 K 4.6 09/19/2015 BUN 64* 09/19/2015 CREATININE 3.25* 09/19/2015 GLUCOSE 138 09/19/2015 CALCIUM 8.8 09/19/2015 MAGNESIUM 0.85 09/19/2015 PHOS 3.9 09/19/2015 ALBUMIN 3.1* 09/19/2015 Cholesterol (in eD-H the component name CHLPL=Cholesterol) Lab Results Component Value Date CHLPL 185 12/28/2014 Assessed needs: Nutrition requirements post-transplant assessed at ~2000kcal and 124 gms protein per day for the initial 4-6 wks post-transplant for wound healing. Once the wound is well-healed, patient's protein needs decrease to ~82gms per day. Summary/Plan: This sba underwriter will initiate diet teaching tomorrow with patient and . Follow up with patient after discharge in outpatient solid organ transplant clinic. Remain available for questions/concerns. * Ruchi Tang RN - 09/19/2015 10:00 AM EDT Care Management/ Pager# [phone]/ Transfer note and Discharge planning S: Getting everything organized for me to be able to go home tomorrow sounds perfect. I was doing HD at [facility] on Thursday/Thursday/Thursday since January 2015. I won't be needing to go there anymore. Getting the referrals in to [facility] and [facility] is a good plan. Thanks for your help. O: Met with patient this morning. [facility] Patient is POD# 3 donor kidney transplant. At this time patient is NPO (except meds) for tunneledCVC line placement. Patient is on Ceftazidime 2Gm IV q24hr (anticipated stop date on 09/22). Whaley catheter d/c today. Flomax po qday. LEEANNA drain x1 to bulb suction (output of 113ml/24hr). Gancyclovir IV q24hr. Solumedrol 80mg IV today. Cellcept 750mg po BID. Prograf 1mg po BID. Nystatin QID. Mag Ox po BID. Protonix po/IV qday. Lipitor po qpm. Coreg po qpm. Dulcolax po BID. Miralax po qday. 93% on 2liters via nasal cannula this morning. Duoneb q4hr prn. OOB ambulating with minimal assistance. Message to Service Correspondent about [facility] HD (M/W/F) prior to admission. Message to Service Correspondent for referral to [facility] and to [facility]. Call to Anthony of [facility] to discuss referral for CVC care and IV antibiotic. Care Management note for MD Discharge Summary (with VNA and IV antibiotic Vendor information) completed and pended by sba underwriter. Discussion with fusion analyst Tamela Mckeon. A/P: Discharge planning underway for likely patient discharge on 09/19. At time of patient's discharge, manager staffing to call report to VNRay and MD Discharge Summary . * Ruchi Tang RN - 09/19/2015 9:47 AM EDT Office of Care Management/Web Marketing Analyst(CM) Home IV Antibiotic Therapy Referral Note. Report received from Dr. Brian Grande that patient will require continued home IV antibiotic therapyafter discharge from the hospital. Met with patient/family to discuss vendor and visiting nurse choices for home IV antibiotic therapy. Reviewed Home Infusion Vendors and Home Health Agencies that serve patient???s address and accept patient???s insurance. Home Health Agency: Patient requested referral to [facility] PHONE: [phone] FAX: [phone] Referrals sent via edischarge. Home Infusion Vendor: Patient requested referral to [place], [place] or Referrals sent via edischarge. Diabetic Status: Patient is a diabetic. IV access: Type of line: Tunneled CVC Date placed: 09/19/15 CM signature Ruchi Tang RN Pager# [phone] * Que Amaro MD - 09/19/2015 9:03 AM EDT INPATIENT DAILY PROGRESS NOTE Patient Name: Ethel Bolden Patient Age: 65 y.o. Birthdate: 1950 Admit date: 09/16/2015 Attending Physician: Larry Larkin MD ID: Ethel Bolden is a 65 y.o. male with HCV and ESRD (on dialysis), now 3 Days Post-Op s/p CDChigh risk donor kidney transplant. 24hr events/Subjective: - Urine output increased - 2.7L over past 24H; only on 50cc maintenance fluids, replacements stopped yesterday a.m. - PO intake 960cc yesterday; net +4L on this admission - WBC continues to come down, on 2g Ceftriaxone Q24H - Restarted home carvedilol 1/2 dose - 12.5mg QHS - Still requiring 1-2L NC - Using IS, multiple walks each day - No complaints this AM, pain is well controlled. Tolerating renal diet. No BM. + flatus. O: Last value Range last 24hrs Temperature Temp: 36.3 ??C (97.3 ??F) Temp: [36.2 ??C (97.2 ??F)-37 ??C (98.6 ??F)] Heart Rate Heart Rate: 55 Heart Rate: [51-60] Blood Pressure BP: 158/87 mmHg BP: (147-172)/(67-92) Respiratory Rate Resp: 16 Resp: [14-22] SpO2 SpO2: 93 % SpO2: [88 %-95 %] 09/17 0701 - 09/18 0700 In: 2349 [P.O.:960; I.V.:1389] Out: 2848 [Urine:2735] NPO diet (Give Meds) Physical Exam: General: NAD, A&Ox3, resting in bed, cooperative HEENT: EOMI, anicteric sclerae CVS: RRR, no m/r/g Pulm: CTAB, faint expiratory wheeze left lower lobe Abd: soft, non-tender, non-distended. Incision c/d/i. Drain serosanguinous. Skin: warm, dry Ext: well perfused, no edema; LUE brachicephalic fistula with palpable thrill Neuro: Grossly intact, nonfocal, moving all four extremities spontaneously. Lines/Drains: RADHA Whaley LEEANNA drain Recent Labs 09/19/15 0614 09/18/15 0231 09/17/15 1131 09/17/15 0917 09/17/15 0330 09/16/15 1529 09/16/15 1008 WBC 11.6* 14.5* 16.4* 15.1* 13.1* < > 7.3 7.2 HGB 9.1* 9.7* 11.1* 11.3* 11.2* < > 11.5* 12.1* HCT 27.1* 29.3* 33.9* 33.3* 32.8* < > 33.3* 35.8* PLATELET 206 233 276 271 223 < > 211 231 PT -- -- -- -- -- -- 14.3 14.0 INR -- -- -- -- -- -- 1.1 1.1 PTT -- -- -- -- -- -- 29 28 < > = values in this interval not displayed. Recent Labs 09/19/15 0614 09/18/15 0231 09/17/15 2155 09/17/15 1131 09/17/15 0917 09/17/15 0330 09/16/15 2150 NA 142 137 137 -- 137 137 138 K 4.6 5.2* 5.0 5.6* Not Perf 5.7* 5.3* CL 108* 102 101 -- 100 101 100 CO2 21* 20* 19* -- 16* 20* 22 BUN 64* 69* 67* -- 59* 52* 48* CREATININE 3.25* 6.26* 6.73* -- 6.96* 6.94* 6.94* GLUCOSE 138 168 190 -- 157 160 158 CALCIUM 8.8 8.8 8.5 -- 8.6 8.3* 8.5 MAGNESIUM 0.85 0.77 -- -- 0.75 0.73 0.75 PHOS 3.9 5.5* -- -- 6.9* 6.7* 6.2* Microbiology (09/17/15): Blood cultures x2 no growth x 1day Renal Ultrasound (09/17/15): 1. Resistive indices are elevated, possibly representing ATN in ??this recently transplanted kidney. ??2. No compressive extrarenal mass or hydronephrosis. ??3. No evident thrombosis or stenosis in the renal artery or vein. ASSESSMENT: Ethel Bolden is a 65 y.o. male s/p donor kidney transplant. He is feelingwell this morning. His numbers show marked improvement this a.m. - his K+ is WNL at 4.6, his creatinine has come down to 3.25 from 6.26, and his phos is WNL at 3.9. He is making adequate urine - approximately 150-200cc/hr. Today we will remove his whaley catheter and have a central line placed so that he can complete his IV antibiotic regimen upon discharge. Also discussed with ID to start a 7-10 day regimen of Doxy for full Lyme prophylaxis following completion of his ceftriaxone. We will also restart his statin today. Goal is for home tomorrow. PLAN Immunosuppresion: - Simulect (Q4 day dosing, next due 09/19) - Solu-medrol taper, will receive 80mg today, 40mg tomorrow, then 20mg going forward - Cellcept 750mg BID - Prograf 07/06 - will check level tomorrow Neuro: - Oxy PRN - Tylenol PRN CV: - will restart home statin - Carvedilol at 12.5mg nightly (home dose is BID) Pulm: - Wean O2 - PRN nebs - IS, OOB GI: - Regular diet today - Miralax, colace - PPI /FEK: - HLIV; NS at 50cc/hr maintenance fluids while NPO for tunneled cath this a.m. - d/c whaley catheter today ID: - Afebrile, elevated WBC count down today; will continue to monitor - Continue 7 days of IV Ceftriaxone (09/22) per ID recs for bacteremia; add Doxy for 7 days after ceftriaxone course to provide full prophylaxis against the Lyme. - Prophylactic nystatin and ganciclovir Heme: - SCDs - SQH; will resume home Plavix on discharge Endo: - Home Synthroid - SSI PPX: - SCDs, Ambulating - IS - PPI DISPO: Floor Code status: Full DYAN RODRIGUEZ MD PGY 1 General Surgery Transplant Surgery Service [id number] 09/19/2015 I have seen the patient and reviewed the resident's above history and I agree with the details as written. The assessment and plan were formulated in discussion with me and I agree with them as documented. Mr. Bolden is doing well today. He made an appropriate volume of urine from the graft over the last 24 hours and his creatinine decreased to the 3 range today. The graft is functioning and he has no acute dialysis requirements. Pain is well controlled and he has been ambulating in the hallways. He is doing well with PO intake and has had no nausea or emesis. We encouraged him to attempt to take2.5L po over the next 24 hours to maintain I/O balance. I reviewed and adjusted his immunosuppression: Prograf 07/06, trough level tomorrow Cellcept 750 mg po bid Solumedrol, continue long taper to prednisone 20 mg. He will be discharged on this dose of prednisone Simulect, dose #2 scheduled for tomorrow Stable, floor status. * Alona Aviles Ray Maldonado - 09/19/2015 8:51 AM EDT Images from the original note were not included. PRE-PROCEDURE VIR NOTE Date of : 1950 Age: 65 y.o. PCP: ALBANIA NUNEZ DO Referring Physician (if different): Dr. Larkin Indication: S/p renal transplant, not a candidate for PICC, needs outpatient CVC access for IV antibiotics Planned Procedure: Tunneled non-pheresis catheter placement Chief Complaint/Diagnosis: 65 yo M with DM, HTN, HCV, ESRD s/p renal transplant on 09/16/2015 from donor who had Group C Strep bacteremia prior to organ procurement. Tunneled non-pheresis CVCrequested for IV antibiotics. He has a left brachiocephalic fistula placed by Dr. Amaro on 05.09.15. Patient last seen in IR on 07/31/2015 for an AV fistulagram without PRESSURE SEALER AND TESTER. He has had prior R IJ TDC placement back on 01/09/2015, subsequently removed on 07/24/2015. Pertinent Past Medical/Surgical History: Patient Active Problem List [...] infection B19.20 ??? Renal failure N19 Past Surgical History Procedure Laterality Date ??? Pro anastomosis, av, any site Left 05/09/2015 AV FISTULA CREATION, DIRECT HEMODIALYSIS, ANY SITE, EG ASHWINI FISTULA UPPER EXTREMITY performed by Que Amaro MD at [facility] MA[facility] OR ??? Pro transplantation of kidney N/A 09/16/2015 @KIDNEY TRANSPLANT, WITHOUT RECIPIENT NEPHRECTOMY performed by Larry Larkin MD at [facility] MA[facility] OR ??? Pro transplant, prep cadaver renal graft N/A 09/16/2015 @PREPARATION CADAVERIC RENAL ALLOGRAFT performed by Larry Larkin MD at [facility] MA[facility] OR ??? N/A 09/16/2015 ORGAN ACQUISITION RENAL, CADAVERIC performed by Larry Larkin MD at [facility] OR No Known Allergies Scheduled Meds: ??? heparin (porcine) 5,000 Units Subcutaneous Q8H JUAN R ? ? insulin aspart 1-4 Units Subcutaneous 4 Times Daily AC & HS ??? magnesium oxide 400 mg Oral BID ??? carvedilol 12.5 mg Oral Daily with dinner ??? tacrolimus 1 mg Oral BID ??? levothyroxine 50 mcg Oral QAM ??? polyethylene glycol (MIRALAX)oral powder 17 g Oral Daily ??? cefTRIAXone 2 g Intravenous Q24H ??? nystatin 5 mL Oral 4 Times Daily ??? mycophenolate 750 mg Oral BID ??? bisacodyl 10 mg Oral BID ??? pantoprazole 40 mg Oral Daily Or ??? pantoprazole 40 mg Intravenous Daily ??? ganciclovir 75 mg Intravenous Q24H ??? [START ON 09/20/2015] methylPREDNISolone 40 mg Intravenous Daily Followed by ??? [START ON 09/21/2015] predniSONE 20 mg Oral Daily ??? [START ON 09/20/2015] basiliximab (SIMULECT) IV 20 mg Intravenous Once Continuous Infusions: ??? sodium chloride 0.9% PRN Meds:.dextrose 50% OR glucagon (human recombinant), oxyCODONE OR oxyCODONE, ipratropium-albuterol, acetaminophen, diphenhydrAMINE OR diphenhydrAMINE, meTOPROLOL, DILTiazem Pertinent ROS: as per HPI History Social History ??? Marital Status: Spouse Name: N/A Number of Children: N/A ??? Years of Education: N/A Social History Main Topics ??? Smoking status: Former Smoker Types: Cigars ??? Smokeless tobacco: Never Used Comment: cigars, only sometimes ??? Alcohol Use: No ??? Drug Use: No ??? Sexual Activity: Not on file Other Topics Concern ??? Not on file Social History Narrative Labs: Lab Results Component Value Date WBC 11.6* 09/19/2015 ANC 5.90 12/28/2014 HCT 27.1* 09/19/2015 PLATELET 206 09/19/2015 INR 1.1 09/16/2015 BUN 64* 09/19/2015 Lab Results Component Value Date ALKPHOS 43 09/19/2015 AST 20 09/19/2015 ALBUMIN 3.1* 09/19/2015 BILIDIR 0.1 09/19/2015 BILITOT 0.4 09/19/2015 ALT 13 09/19/2015 Imaging: NA PRE-SEDATION ASSESSMENT / FOCUSED H&P Addendum: The patient's history and physical exam have been reviewed and completed. There has been no interval change from that of the pre-operative history and physical exam done within the last 30 days. Risks (including hemorrhage, infection, allergic reaction, occlusion, respiratory depression), and benefits discussed and patient consented to the procedure. Most Recent Labs Lab Results Component Value Date WBC 11.6* 09/19/2015 HGB 9.1* 09/19/2015 HCT 27.1* 09/19/2015 MCV 92.8* 09/19/2015 PLATELET 206 09/19/2015 Lab Results Component Value Date INR 1.1 09/16/2015 Lab Results Component Value Date PT 14.3 09/16/2015 PTT 29 09/16/2015 Physical Exam Heart: RRR Lungs: clear ASA: 2: Patient with mild systemic disease Mallampati: II: tonsillar pillars are blocked by the tongue Confirm NPO status: Yes, Date and Time of last intake: PM on 09/18/2015 Current medications reviewed: Yes Allergies reviewed: Yes Updated Assessment 65 yo M with DM, HTN, HCV, ESRD s/p renal transplant on 09/16/2015 from donor who had GroupC Strep bacteremia prior to organ procurement. Tunneled non- pheresis CVC requested for IV antibiotics. He has a left brachiocephalic fistula placed by Dr. Amaro on 05.09.15. Patient last seen in [place] 07/31/2015 for an AV fistulagram without PRESSURE SEALER AND TESTER. He has had prior R IJ TDC placement back on 01/09/2015, subsequently removed on 07/24/2015. Plan is for a RIGHT tunneled non-pharesis catheter Consent obtained at bedside on 09/19/2015. Antibiotic prophylaxis: Patient is already on appropriate antibiotics. I have reviewed the sedation plan for this patient???s case and concur that Fentanyl and Versed areappropriate choices for sedation and will be provided per the protocoled order set for this case I have reviewed with the patient, their prior experience with sedation. The patient has been NPO per protocol ALONA AVILES MD 09/19/2015 * Therese Carpio RN - 09/19/2015 7:22 AM EDT ANGIO/VIR NURSING DATABASE Name: ETHEL BOLDEN Date of : 1950 AGE 65 y.o. [address]: [address] [place] [phone] (home) [phone] (work) Mobile: Telephone Information: Referring Provider: Albania Nunez PROCEDURE: Tunneled central line No Known Allergies Pertinent PMH: Patient Active [...] virus infection B19.20 ??? Renal failure N19 Pertinent PSH: Past Surgical History Procedure Laterality Date ??? Pro anastomosis, av, any site Left 05/09/2015 AV FISTULA CREATION, DIRECT HEMODIALYSIS, ANY SITE, EG ASHWINI FISTULA UPPER EXTREMITY performed by Que Amaro MD at [facility] MA[facility] OR ??? Pro transplantation of kidney N/A 09/16/2015 @KIDNEY TRANSPLANT, WITHOUT RECIPIENT NEPHRECTOMY performed by Larry Larkin MD at [facility] OR ??? Pro transplant, prep cadaver renal graft N/A 09/16/2015 @PREPARATION CADAVERIC RENAL ALLOGRAFT performed by Larry Larkin MD at [facility] OR ??? N/A 09/16/2015 ORGAN ACQUISITION RENAL, CADAVERIC performed by Larry Larkin MD at [facility] OR Date/Procedure? Med's given/comments 01/08/2015: Tunneled HD catheter? Versed 2.5 mg, Fentanyl 125 mcg. Tolerated well? 07/31/15 Left Fistulogram?Versed 2? mgs iv., Fentanyl?? 100?? mcgs iv.?09/19/2015 Tunneled CVC Right IJ ?Versed 1.5 mg IV, Fentanyl 75 mcg IV. On Rocephin. ? Laboratory Results: Lab Results Component Value Date INR 1.1 09/16/2015 Lab Results Component Value Date CREATININE 6.26* 09/18/2015 Lab Results Component Value Date K 5.2* 09/18/2015 Lab Results Component Value Date PLATELET 206 09/19/2015 Medications: Prior to Admission medications Medication Sig Start Date End Date Taking? Authorizing Provider PROGRAF 1 mg Capsule Take 5 capsules by mouth twice daily. KIDNEY TRANSPLANT Z94.0. TRANSPLANT DATE: 09/16/2015 09/17/15 Que Amaro MD mycophenolate (CELLCEPT) 250 mg Capsule Take 3 capsules by mouth 2 times daily. Kidney replaced by transplant 09/16/2015. Z94.0 09/17/15 09/16/16 Que Amaro MD predniSONE (DELTASONE) 5 mg Tablet Take 4 tablets by mouth daily. 09/17/15 09/16/16 Que Amaro MD DILTiazem (DILTIAZEM CD) 120 mg Capsule, Sust. Release 24 hr Take 1 capsule by mouth daily. 09/17/15Que chavis MD valGANciclovir (VALCYTE) 450 mg Tablet Take 2 tablets by mouth daily for 183 days. 09/17/15 03/18/16 Que Amaro MD sulfamethoxazole-trimethoprim (BACTRIM;SEPTRA) 400-80 mg Tablet Take 1 tablet by mouth daily for 364 days. 09/17/15 09/15/16 Que Amaro MD nystatin (MYCOSTATIN) 100,000 unit/mL Suspension Swish and swallow 5mL after meals and at bedtime. 09/17/15 10/28/15 Que Amaro MD pantoprazole (PROTONIX) 40 mg Tablet, Delayed Release (E.C.) Take 1 tablet by mouth daily. 09/17/15 09/16/16 Que Amaro MD potassium phosphate, monobasic, (K-PHOS ORIGINAL) 500 mg Tablet, Soluble Take 1 tablet by mouth 4 times daily. 09/17/15 09/16/16 Que Amaro MD levothyroxine (SYNTHROID) 50 mcg Tablet Take 50 mcg by mouth daily. PROVIDER, HISTORICAL clopidogrel (PLAVIX) 75 mg Tablet Take 1 tablet by mouth daily. 05/12/15 Kendrick Del Castillo MD hydrALAZINE (APRESOLINE) 25 mg Tablet Take 75 mg by mouth 2 times daily. PROVIDER, HISTORICAL magnesium oxide (MAG-OX) 400 mg Tablet Take 400 mg by mouth daily. PROVIDER, HISTORICAL carvedilol (COREG) 6.25 mg Tablet Take 12.5 mg by mouth 2 times daily (with meals). PROVIDER, HISTORICAL furosemide (LASIX) 80 mg Tablet Take 40 mg by mouth 2 times daily. PROVIDER, HISTORICAL spironolactone (ALDACTONE) 25 mg Tablet Take 25 mg by mouth daily. PROVIDER, HISTORICAL pravastatin (PRAVACHOL) 20 mg Tablet Take 20 mg by mouth daily. PROVIDER, HISTORICAL calcitRIOL (ROCALTROL) 0.25 mcg Capsule Take 1 capsule by mouth three times a week. 07/12/14 Albania Loya MD ONE TOUCH ULTRA TEST Strip 04/28/14 PROVIDER, HISTORICAL ONE TOUCH ULTRAMINI Kit 04/28/14 PROVIDER, HISTORICAL ONE TOUCH DELICA LANCETS 30 gauge Misc 04/28/14 PROVIDER, HISTORICAL doxazosin (CARDURA) 4 mg Tablet Take 1 tablet by mouth nightly. 05/22/14 Albania Loya MD omeprazole (PRILOSEC) 20 mg capsule Take 20 mg by mouth daily. PROVIDER, HISTORICAL ++++ FOR OUTPATIENT SCAN'S: I have informed this patient that they require a mail truck driver to be present and in the building to drive them home after this procedure. In the absence of a mail truck driver, IR will not be able to perform this procedure and will need to reschedule. Pt verbalized understanding of these i nstructions during the pre-procedure education via phone. (initials) * Andrei Gill, PT - 09/18/2015 4:40 PM EDT Physical Therapy Note Visit #2 Patient profile: Ethel Bolden is a 65 y.o. male admitted on 09/16/2015 by Larry Angulo MD with PMH significant for DMII, HTN, HCV (with clearance of HCV on fibroscan) with hemodialysis dependent ESRD who presents today for donor kidney transplantation. He was initially evaluated for kidney transplantation on 07/17/15 and was activated on the recipient list on 09/07/15. Last dialysis was on Thursday. He still does produce urine. He has been off his Plavix since 09/05/15. 09/16/15 OR Procedure(s): @KIDNEY TRANSPLANT, WITHOUT RECIPIENT NEPHRECTOMY @PREPARATION CADAVERIC RENAL ALLOGRAFT PMH: Past Medical History Diagnosis Date ??? Type [...] NEPHRECTOMY performed by Larry Larkin MD at [facility] MA[facility] OR ??? Pro transplant, prep cadaver renal graft N/A 09/16/2015 @PREPARATION CADAVERIC RENAL ALLOGRAFT performed by Larry Larkin MD at [facility] OR ??? N/A 09/16/2015 ORGAN ACQUISITION RENAL, CADAVERIC performed by Larry Larkin MD at [facility] OR Social History: Patient lives with spouse in [place], [place]. He reports he & not working so available to help prn. He reports living in a log cabin with master bedroom and BR on main level with 4 steps to enter. Baseline Mobility: Independent ambulater without any device, driving self to dialysis. Precautions/Special Considerations: Full code status Activity Orders: OOB to chair Staff communication/Mobility Recommendations: ?? Pt. to utilize supervision x 1 of staff for ambulation, amb in hallway 3x/day. ?? Please encourage up to chair for meal times as able. Subjective: ???Well, lets try without the walker because I don't want to use that @ home.?? Objective: Pt seen for ambulation this afternoon. He's demonstrating the following: ?? Patient amb w/ nursing this morning in hallway ?? He was sitting up in chair when I arrived & performing IS 1800 ml on his own. ?? Sit > stand (I) from chair, lowered to bed after walk in control. ?? Amb out of ISCU down hallway over mall and back into ISCU ~ 400' w/ CGA & close supervision,no walker ?? He tested gait without assistive device and his balance was good, close supervision by therapist& he stayed near railings on wall. Reciprocal gait pattern with steady arian. ?? He returned to his room and got into bed on his own; moving well. ?? Pain: no c/o pain. ?? Vital Signs: Sp02: 94% RA HR: 67 Education: patient have been educated on importance of gradually increasing activity tolerance and verbalizes understanding. He agreed to walk further and more times today. He's using IS on his own and reaching 1800 ml. He's up in chair for meals today. Patient status, treatment, and mobility recommendations discussed with nursing. Assessment: Ethel Bolden presents to POD #2 s/p kidney transplant. Patient OOB and walking w/ nursing supervision first thing this morning. He was agreeable to take a longer walk this afternoon and even tested without holding a walker and managed very well, supervision only. Pt making nice progress post-op. The pt would benefit from 1 more therapy visit to maximize functional independence while in the hospital and to address limitations as noted in goals/stairs. Goals: To be achieved by 09-20-16. 1. Pt. to perform bed mobility on his own, HOB may be up as his bed @ home inclines.- MET 2. Pt. to perform sit >< stand transfers (I). - MET 3. Pt. to ambulate 3x/day at least 100 feet without need for assistive device (I), supervised.- MET 4. Pt. to ambulate up/down 4 step/stairs safely to enter/exit home. Plan: Pt to be seen 1 more visit for therapy including gait on stairs prior to d/c. Patient agrees with plan as stated above. Discharge Recommendations: Based on the current findings noted during this evaluation, patient could benefit from Home withoutfurther Skilled Therapy when medically ready for hospital discharge. This recommendation is based on the patient's Potential to return to prior level of function and may change based on patient progress during this hospitalization. Equipment needs: No equipment needs identified @ this time. Total time spent with patient: 20 minutes Total timed interventions: 20 minutes PARKER GILL, PT 09/18/2015 Pager: [phone] Physical Therapy Rehabilitation Department * Pauline Miles, RN - 09/18/2015 4:18 PM EDT 1615: Pt arrived to [address] [facility]. Skyla initiated. Call robles within reach. VS stable. [facility]. * Mundo Barry RN - 09/18/2015 1:35 PM EDT Nurse Web Marketing Analyst Initial Assessment Mundo Barry RN, pager [phone] Office of Care Management 09/18/2015 Ethel Bolden [id number] Date of : 1950 Admission Diagnosis: Renal failure [N19]; per adm note: PMH significant for HCV with hemodialysis dependent ESRD 2/2 HTN who presents today for [facility] high risk donor kidney transplantation. Past Medical History Diagnosis Date ??? Type 2 diabetes mellitus ??? HTN (hypertension) ??? ESRD (end stage renal disease) ??? Microhematuria ??? Colon polyp ??? GERD (gastroesophageal reflux disease) ??? Back pain ??? CVA (cerebral vascular accident) Per report but no deficits Patient Active Problem List Diagnosis Code ??? [...] virus infection B19.20 ??? Renal failure N19 Social History Narrative None on file Lives in [place], [place] in own home w/ spouse Mundo and 26 y.o. Son. Code Status: Full. Advance Directives:none in [facility]. Admission Status: written and signed by attending as IPI. Insurance: Medicare A,B and D through [employer] and /. [facility] [address] Baseline Functional Status: self reports no functional deficits. Current Home Equipment/Services: none. Current Functional Status/Mobility: walked around nursing unit this morning w/ no assistive device. Anticipated Barriers to Discharge: none. Anticipated Discharge Date: uncertain. Anticipated Discharge Place: home. Anticipated Discharge Needs: will benefit from home vna services for post-op check. Discussed agencies that can provide pt services in home area and pt requested referral to [facility]. Transportation Needs: family will transport pt home. CM will continue to monitor progress and assist with changing needs. Mundo Barry RN, MSN Web Marketing AnalystPotato Chip Sacking Machine Operator of Care Management Pager [phone] Phone: [phone] * Brian Grande MD - 09/18/2015 1:00 PM EDT INFECTIOUS DISEASE FOLLOW-UP NOTE Active ID Issue(s): Group C Strep bacteremia in donor prior to kidney transplant Consulting Service/Team Pager: Transplant Consulting Attending: Larry Larkin MD Admission Date: 09/16/2015 Antimicrobial Therapy: Ceftriaxone 2g IV q24hr Intercurrent Events/Subjective Data: - Vancomycin and ceftazidime changed to ceftriaxone yesterday - Doing well, may be able to be discharged later this week - Feels well, pain well controlled Physical Exam: Last value Range last 24 hrs Temperature Temp: 36.2 ??C (97.2 ??F) Temp: [36.2 ??C (97.2 ??F)-36.6 ??C (97.9 ??F)] Heart Rate Heart Rate: 63 Heart Rate: [56-75] Blood Pressure BP: 148/67 mmHg BP: (130-172)/(65-76) Respiratory Rate Resp: 16 Resp: [9-18] SpO2 SpO2: 91 % SpO2: [91 %-96 %] General: NAD, laying comfortably in bed HEENT: NC/AT, MM moist, neck supple Cardiovascular: Normal S1 and S2, no m/r/g Abd: Surgical incision closed, no erythema or drainage. Normoactive BS, soft, NT, ND : Whaley draining yellow urine Extrem: LUE fistula pulsatile, non-tender Skin: Warm and dry without rash Laboratory: Recent Labs 09/18/15 0231 09/17/15 1131 09/17/15 0917 WBC 14.5* 16.4* 15.1* HGB 9.7* 11.1* 11.3* HCT 29.3* 33.9* 33.3* PLATELET 233 276 271 Recent Labs 09/18/15 0231 09/17/15 2155 09/17/15 1131 09/17/15 0917 NA 137 137 -- 137 K 5.2* 5.0 5.6* Not Perf CL 102 101 -- 100 CO2 20* 19* -- 16* BUN 69* 67* -- 59* CREATININE 6.26* 6.73* -- 6.96* Recent Labs 09/18/15 0231 09/17/15 0917 09/17/15 0330 AST 21 Not Perf 20 ALT 14 18 16 ALKPHOS 49 57 55 BILITOT 0.4 0.7 0.6 BILIDIR 0.1 Not Perf 0.2 Recent Labs 09/18/15 0231 09/17/15 2155 09/17/15 0917 09/17/15 0330 CALCIUM 8.8 8.5 8.6 8.3* PHOS 5.5* -- 6.9* 6.7* Microbiology: 09/16: Blood--pending Radiology/Studies/Procedures: None new Assessment: Ethel Bolden is a 65 y.o.male with history of HCV, ESRD on HD, type 2 DM who presented for renal transplant from donor who had Group C Strep bacteremia prior to organ procurement. He isdoing well with no evidence of infection or bacteremia today. There are no clear guidelines in the literature about how long to treat in this setting. Given that this is a very sensitive organism that can be effectively treated, we recommend treating for a week, but would continue him on IV antibiotics for optimal treatment. We will place OPAT orders today and sign off; please call with questions. Recommendations: - Continue ceftriaxone 2g IV q24hr - Duration 1 week from transplant--09/15 to 09/22 - No need for ID clinic follow up unless questions arise Recommendations discussed with primary treating team. ID consult service will continue to follow. Page [phone] with questions or concerns. X Recommendations are above. ID will sign off. If clinical changes occur or new questions arise, page [phone]. Patient discussed with ID attending Dr. Harjinder BECK MD Fellow, Infectious Disease 09/18/2015 Pager [phone] Addendum Asked to comment on the possibility of Lyme disease as the donor was reported to have a tick bite about 3 months ago. It is difficult to say what the possible risk of Lyme is as we do not know what kind of tick it is or where the exposure occurred. While ceftriaxone is standard therapy for late Lyme complications, there is no evidence for its use in early Lyme disease. The standard therapy for early Lyme is doxycycline for 10 to 14 days. Given that, if there is still a significant concern for possible Lyme transmission via the kidney transplant, a reasonable option would be to give an additional 7 to 10 days of doxycycline following the ceftriaxone. Selena Beck ID fellow Pager [phone] I agree with the recommendations of Dr. Beck after discussion with her and review of her note.I did not examine the patient myself today. Brian Grande MD * Tal Eagle MD - 09/18/2015 9:54 AM EDT TRANSPLANT NEPHROLOGY CONSULT PROGRESS NOTE REASON FOR CONSULTATION: medical management of transplant kidney referred by Dr. Larkin Ethel Bolden [id number] Transplant ID: Date: 09/18/2015 Patient: Ethel Bolden Transplant Date: 09/16/2015 Organ(s) donor [place] organ diagnosis: Renal biopsy showing diabetic and ischemic nephropathy Days from Transplant: day 2 Last seen in clinic 04/19/2015 Tranplant Hx: 65 y.o. male with history of DM, HTN, HCV, ESRD (Renal biopsy showing diabetic and ischemic nephropathy) who is s/p renal transplant from donor on 09/16/2015, is being requested to be seen for medical management of transplant kidney. Pt was getting HD MWF at [facility]. He was referred by Dr. Nunez for pre transplant evaluation for his kidney and was seen by Dr Eagle on 04/19/2015. He apparently had [facility]been evaluated [facility]. He was told he will need a liver biopsy prior to placing him on the active transplant wait list. He has been cleared now with fibroscan showing no fribrosis.plan was to treat him after transplant. This was considered a high risk transplant as both the he and the donor were HCV positive. His transplant team was notified that the donor had prior blood cultures prior to organ procurement. He grewGroup C Strep from blood cultures and was on 48 hours of antibiotics prior to procurement. Repeat blood cultures were no growth for 12 hours prior to procurement. Additionally, there was a report that the donor had a tick bite about 3 months ago with possible rash and was never treated for tick-borne illnesses. Post op complications: Pt tolerated procedure very well and was induced with Simulect, solu-medrol, benadryl, tylenol. He was given 1L bolus overnight for low urine output with good response. CMV status: D+/R+ EBV status: D+/R+ S: He was seen in his room this am with transplant team, he was feeling ok with no pain at the siteof surgery. MEDICATIONS: ? ? insulin aspart 1-4 Units Subcutaneous 4 Times Daily AC & HS ??? magnesium oxide 400 mg Oral BID ??? carvedilol 12.5 mg Oral Nightly ??? levothyroxine 50 mcg Oral QAM ??? polyethylene glycol (MIRALAX)oral powder 17 g Oral Daily ??? heparin (porcine) 5,000 Units Subcutaneous 2 times per day ??? cefTRIAXone 2 g Intravenous Q24H ??? nystatin 5 mL Oral 4 Times Daily ??? mycophenolate 750 mg Oral BID ??? bisacodyl 10 mg Oral BID ??? pantoprazole 40 mg Oral Daily Or ??? pantoprazole 40 mg Intravenous Daily ??? ganciclovir 75 mg Intravenous Q24H ??? [START ON 09/19/2015] methylPREDNISolone 80 mg Intravenous Daily Followed by ??? [START ON 09/20/2015] methylPREDNISolone 40 mg Intravenous Daily Followed by ??? [START ON 09/21/2015] predniSONE 20 mg Oral Daily ??? [START ON 09/20/2015] basiliximab (SIMULECT) IV 20 mg Intravenous Once PHYSICAL EXAM: Filed Vitals: 09/18/15 0800 BP: 155/72 Pulse: 63 Temp: 36.6 ??C (97.9 ??F) Resp: 14 Appearance - Alert, Comfortable. Skin - No exanthem. HEENT - Sclera white. Mucous membranes moist. Pharynx pink. No nasal discharge. Lymph - No cervical lymphadenopathy. Chest:?? Lungs clear to ausculatation w/o wheezes/ rhonchi/ crackles. Heart - S1 and S2 clear w/o murmur, gallop, or rub. JVP not elevated Abd - Soft. + BS. No bruit. Non tender. No organomegaly. Ext -?? Warm. No cyanosis. No dependent edema. Neuro - No clonus/ asterixis. Muscle strength equal bilaterally. CN II - XII grossly intact Access-. Rt sided chest TDC Labs/ Imaging: Recent Results (from the past 24 hour(s)) Potassium Result Value Ref Range Potassium 5.6 (H) 3.5 - 5.0 mmol/L Hemogram Result Value Ref Range WBC 16.4 (H) 4.0 - 10.0 x10(3)/mcL RBC 3.60 (L) 4.63 - 6.08 x10(6)/mcL Hemoglobin 11.1 (L) 13.7 - 17.5 gm/dL Hematocrit 33.9 (L) 40.0 - 51.0 % MCV 94.2 (H) 79.0 - 92.0 fL MCH 30.8 25.6 - 32.2 pg MCHC 32.7 32.0 - 36.5 gm/dL Platelets 276 145 - 370 x10(3)/mcL RDWSD 49.3 (H) 35.0 - 46.0 fL RDWCV 14.3 10.9 - 14.4 % MPV 9.4 9.0 - 12.0 fL Differential, Automated Result Value Ref Range Neutrophils % 88.3 % Neutr Abs (ANC) 14.45 (H) 1.50 - 6.30 x10(3)/mcL Lymphocytes % 3.1 % Lymphocytes Abs 0.5 (L) 1.0 - 3.6 x10(3)/mcL Monocytes % 8.3 % Monocyte Abs 1.4 (H) 0.2 - 1.0 x10(3)/mcL Eosinophils % 0.0 % Eosinophils Abs 0.0 0.0 - 0.5 x10(3)/mcL Basophils % 0.1 % Basophils Abs 0.0 0.0 - 0.2 x10(3)/mcL Immature Gran % 0.20 % Ayesha Gran Abs 0.03 0.00 - 0.05 x10(3)/mcL Basic Metabolic Panel (non-fasting) Result Value Ref Range Glucose Lvl 190 65 - 199 mg/dL BUN 67 (H) 10 - 20 mg/dL Creatinine 6.73 (H) 0.80 - 1.50 mg/dL Sodium 137 135 - 145 mmol/L Potassium 5.0 3.5 - 5.0 mmol/L Chloride 101 98 - 107 mmol/L CO2 19 (L) 22 - 31 mmol/L Anion Gap 17 (H) 5 - 15 mmol/L Calcium 8.5 8.5 - 10.5 mg/dL Estimated GFR 8 (L) >=60 Basic Metabolic Panel (non-fasting) Result Value Ref Range Glucose Lvl 168 65 - 199 mg/dL BUN 69 (H) 10 - 20 mg/dL Creatinine 6.26 (H) 0.80 - 1.50 mg/dL Sodium 137 135 - 145 mmol/L Potassium 5.2 (H) 3.5 - 5.0 mmol/L Chloride 102 98 - 107 mmol/L CO2 20 (L) 22 - 31 mmol/L Anion Gap 15 5 - 15 mmol/L Calcium 8.8 8.5 - 10.5 mg/dL Estimated GFR 9 (L) >=60 Magnesium Result Value Ref Range Magnesium 0.77 0.69 - 1.07 mmol/L Phosphorus Result Value Ref Range Phosphorus 5.5 (H) 2.5 - 4.5 mg/dL Hepatic Function Panel Result Value Ref Range Total Protein 6.1 6.1 - 8.0 gm/dL Albumin 3.1 (L) 3.2 - 5.2 gm/dL AST 21 0 - 39 unit/L ALT 14 0 - 55 unit/L Alk Phos 49 40 - 120 unit/L Total Bilirubin 0.4 0.2 - 1.3 mg/dL Bili, Direct 0.1 0.0 - 0.3 mg/dL Hemogram Result Value Ref Range WBC 14.5 (H) 4.0 - 10.0 x10(3)/mcL RBC 3.13 (L) 4.63 - 6.08 x10(6)/mcL Hemoglobin 9.7 (L) 13.7 - 17.5 gm/dL Hematocrit 29.3 (L) 40.0 - 51.0 % MCV 93.6 (H) 79.0 - 92.0 fL MCH 31.0 25.6 - 32.2 pg MCHC 33.1 32.0 - 36.5 gm/dL Platelets 233 145 - 370 x10(3)/mcL RDWSD 48.8 (H) 35.0 - 46.0 fL RDWCV 14.3 10.9 - 14.4 % MPV 9.3 9.0 - 12.0 fL Differential, Automated Result Value Ref Range Neutrophils % 92.1 % Neutr Abs (ANC) 13.35 (H) 1.50 - 6.30 x10(3)/mcL Lymphocytes % 4.5 % Lymphocytes Abs 0.6 (L) 1.0 - 3.6 x10(3)/mcL Monocytes % 3.0 % Monocyte Abs 0.4 0.2 - 1.0 x10(3)/mcL Eosinophils % 0.0 % Eosinophils Abs 0.0 0.0 - 0.5 x10(3)/mcL Basophils % 0.1 % Basophils Abs 0.0 0.0 - 0.2 x10(3)/mcL Immature Gran % 0.30 % Ayesha Gran Abs 0.04 0.00 - 0.05 x10(3)/mcL POCT Glucose Result Value Ref Range POC Glucose 133 65 - 199 mg/dL Impression/ Plan: 65 M PMH significant for DM, HTN, HCV (with clearance by GI based upon fibroscan) with hemodialysisdependent ESRD who is s/p donor kidney transplantation on 09/16/2015. He is being requestedto be seen for medical management of transplant kidney. Transplant Status: Kidney function creat is improving and stable UOP is improving made around 1.7 L urine yesterday Immunosuppression: Simulect (Q4 day dosing, next due ) Solu-medrol taper Cellcept 750mg BID Please send C3,4 & CH50, Cryoglobulins level PO4/Mg/K: Watch phos closely Mg oxide 400 bid Close monitoring of K and phos Hypertension: controlled Infectious prophylaxis: CMV +/+ EBV +/+ Ceftraixone Iv ganciclovir Pt will need FU with Dr Khan 1 month after discharge from hospital Seen and Discussed w/ Dr. Shagufta Villasenor MD Nephrology fellow Pager # [phone] I reviewed all of the above findings and assessment of Dr. Villasenor, examined the patient and formulated the recommendations which accurately reflect mine. * Dyan Rodriguez - 09/18/2015 9:52 AM EDT INPATIENT DAILY PROGRESS NOTE Patient Name: Ethel Bolden Patient Age: 65 y.o. Birthdate: 1950 Admit date: 09/16/2015 Attending Physician: Larry Larkin MD ID: Ethel Bolden is a 65 y.o. male with HCV and ESRD (on dialysis), now 2 Days Post-Op s/p CDChigh risk donor kidney transplant. 24hr events/Subjective: -Low urine output yesterday a.m., vss; 500cc bolus in am with mild response; urine output picked upovernight to ~100-125cc/hr -WBC up yesterday but has started to come down -ID consulted and made recommendations about donor's Group C Strep + bacteremia; will treat with Ceftriaxone, which also covers Lyme disease given possible co-infection -No complaints this AM, pain is well controlled. Tolerating renal diet. O: Last value Range last 24hrs Temperature Temp: 36.6 ??C (97.9 ??F) Temp: [36.4 ??C (97.5 ??F)-36.9 ??C (98.4 ??F)] Heart Rate Heart Rate: 63 Heart Rate: [56-75] Blood Pressure BP: 155/72 mmHg BP: (124-158)/(65-76) Respiratory Rate Resp: 14 Resp: [9-18] SpO2 SpO2: 91 % SpO2: [91 %-96 %] 09/16 0701 - 09/17 0700 In: 4006 [P.O.:1421; I.V.:2525] Out: 1856 [Urine:1727] Renal diet 2 GM NA; Low Phosphorous; 2 GM K Physical Exam: General: NAD, A&Ox3, resting in bed, cooperative HEENT: EOMI, anicteric sclerae CVS: RRR, no m/r/g Pulm: CTAB, no wheezes or rhonchi Abd: soft, non-tender, non-distended. Incision c/d/i. Drain thin sanguinous. Skin: warm, dry Ext: well perfused, no edema; LUE brachicephalic fistula with palpable thrill Neuro: Grossly intact, nonfocal, moving all four extremities spontaneously. Lines/Drains: PIV Whaley LEEANNA drain Recent Labs 09/18/15 0231 09/17/15 1131 09/17/15 0917 09/17/15 0330 03/13/214909/16/15 1529 09/16/15 1008 WBC 14.5* 16.4* 15.1* 13.1* 13.5* 7.3 7.2 HGB 9.7* 11.1* 11.3* 11.2* 11.7* 11.5* 12.1* HCT 29.3* 33.9* 33.3* 32.8* 33.9* 33.3* 35.8* PLATELET 233 276 271 223 227 211 231 PT -- -- -- -- -- 14.3 14.0 INR -- -- -- -- -- 1.1 1.1 PTT -- -- -- -- -- 29 28 Recent Labs 09/18/15 0231 09/17/15215409/17/15 1131 09/17/15 0917 09/17/15 0330 09/16/15214909/16/159 09/16/15 1008 NA 137 137 -- 137 137 138 136 139 K 5.2* 5.0 5.6* Not Perf 5.7* 5.3* 5.0 4.9 CL 102 101 -- 100 101 100 99 96* CO2 20* 19* -- 16* 20* 22 25 28 BUN 69* 67* -- 59* 52* 48* 45* 44* CREATININE 6.26* 6.73* -- 6.96* 6.94* 6.94* 6.99* 7.50* GLUCOSE 168 190 -- 157 160 158 148 127 CALCIUM 8.8 8.5 -- 8.6 8.3* 8.5 8.3* 9.4 MAGNESIUM 0.77 -- -- 0.75 0.73 0.75 0.75 0.83 PHOS 5.5* -- -- 6.9* 6.7* 6.2* -- 5.0* ASSESSMENT: Ethel Bolden is a 65 y.o. male s/p donor kidney transplant. He is feelingwell this morning. His K+ is still elevated but improved from yesterday (5.2 from 5.7). Creatinine showed slight improvement down to 6.2 from 6.9. He is eating well, the increase in his urine output is encouraging, and his pain is well controlled. PLAN Immunosuppresion: - Simulect (Q4 day dosing, next due 09/19) - Solu-medrol taper, - Cellcept 750mg BID Neuro: - Oxy PRN - tylenol PRN CV: - will restart home Carvedilol at 12.5mg nightly (home dose is BID) Pulm: - Wean O2 - PRN nebs - IS, OOB GI: - Renal diet, low phos, low K+ - Miralax, colace - PPI /FEK: - NS at 50cc/hr maintenance fluids - replacements off today - Maintain whaley catheter ID: - Afebrile, elevated WBC count down today; will continue to monitor - Consult in to Transplant ID given pt's donor with known bacteremia, recent tick bite. Continue Ceftriaxone per their recs; duration and method (IV vs PO still pending) - Blood cultures pending - Prophylactic nystatin and ganciclovir Heme: - SCDs Endo: - Home Synthroid - SSI PPX: - SCDs, Ambulating - IS - PPI DISPO: ISCU, transfer to floor today Code status: Full DYAN RODRIGUEZ MD PGY 1 General Surgery Pgr [id number] 09/18/2015 Associated attestation - Que Amaro MD - 09/18/2015 5:22 PM EDT I have seen the patient and reviewed the resident's above history and I agree with the details as written. The assessment and plan were formulated in discussion with me and I agree with them as documented. Mr. Bolden is doing well today. His pain is well controlled and he had no complaints when I evaluated him today. Hgb level is down to 10 from 11 but there is no clinical evidence of active bleeding. He is making clear urine and the drain output is serous. BP is robust and his HR is in the high 50to 60 range. His creatinine level is down slightly to 6.2 with over 1700 cc of urine in the last 24 hour period.Duplex of the graft yesterday afternoon showed perfusion throughout the cortex with a patent renal artery and vein. There was no evidence of fluid collection around the allograft. There was no acute dialysis indication today. I reviewed and adjusted his immunosuppression therapy as follows: Prograf 07/06, will obtain a tacrolimus trough level on Cellcept 750 mg po bid Solumedrol long taper Simulect dosed in the OR. His next scheduled dose will be on POD #[address] Marcelo (Hepatology) about the Hep C positive donor kidney transplant into this Hep C positive recipient today. He would like to check genotype and PCR testing in one month following the procedure at which time he will see him in the Hepatology clinic to discuss treatment of the hepatitis C. Greatly appreciate the assistance of the Transplant ID team. Continue ceftriaxone for donor bacteremia documented prior to the procurement. Surveillance post-transplant blood cultures in the recipient remain NGTD. The Lyme serologies came back negative in the donor. Stable, transfer to the floor today. Aggressive pulmonary toilet, ambulation. Will follow. * Yessica Malik RN - 09/17/2015 7:22 PM EDT Report taken from nurse on ISCU unit. VSS and A&Ox4 throughout shift. Remains on 1/2 replacement. Urine picked up throughout shift. Weaning from FIELD MERCHANDISER. Report given to next shift. * Samia Escalante RN - 09/17/2015 3:36 PM EDT Met with patient today to introduce my role and begin post-transplant teaching. Discussed I&O tracking with pt and asked that he begin this tomorrow morning. Spoke to patient about his medication regimen post-transplant and showed him a mock medication card. He does not have questions and feels the layout is straightforward. Pt has all necessary equipment at home to take his vitals with and understands that he must do thison a daily basis. Mr. Bolden has questions about contacting his donor's family, and we discussed the proper course of action for this. Pt was fairly fatigued when we spoke, so I left him to rest and I will follow-up tomorrow. Medications discussed with Dr. Amaro and sent to the Pharmacy. Possible d/c as early as after his second Simulect infusion. Samia Escalante RN [facility] [place] Solid Organ Transplant [phone] (Pager: [phone]) * Tal Eagle MD - 09/17/2015 10:15 AM EDT INPATIENT DAILY PROGRESS NOTE Patient Name: Ethel Bolden Patient Age: 65 y.o. Birthdate: 1950 Admit date: 09/16/2015 Attending Physician: Larry Larkin MD ID: Ethel Bolden is a 65 y.o. male with HCV and ESRD (on dialysis), now 1 Day Post-Op s/p CDC high risk donor kidney transplant. 24hr events/Subjective: -Admitted yesterday for transplant; pre-op Cr 7.50 -Tolerated procedure well, induced with Simulect, solu-medrol, benadryl, tylenol -CDC high risk donor -1L NS bolus overnight for low urine output with good response, though urine output trending down again this am, vss -no complaints this AM, pain is well controlled. Tolerating clears. Some flatus/no BM. O: Last value Range last 24hrs Temperature Temp: 36.9 ??C (98.4 ??F) Temp: [36.4 ??C (97.5 ??F)-36.9 ??C (98.4 ??F)] Heart Rate Heart Rate: 61 Heart Rate: [58-63] Blood Pressure BP: 114/61 mmHg BP: (114-144)/(61-78) Respiratory Rate Resp: (!) 7 Resp: [7-14] SpO2 SpO2: 96 % SpO2: [90 %-97 %] 09/15 0701 - 09/16 0700 In: 4807.5 [P.O.:360; I.V.:4397.5] Out: 1575 [Urine:1185] Renal diet 2 GM NA; Low Phosphorous Physical Exam: General: NAD, A&Ox3, resting in bed, cooperative HEENT: EOMI, anicteric sclerae CVS: RRR, no m/r/g Pulm: CTAB, no wheezes or rhonchi Abd: soft, non-tender, non-distended. Incision dressed, c/d/i. Drain thin sanguinous. Skin: warm, dry Ext: well perfused, no edema; LUE brachicephalic fistula with palpable thrill Neuro: Grossly intact, nonfocal, moving all four extremities spontaneously. Lines/Drains: PIV Whaley LEEANNA drain Recent Labs 09/17/15 0917 09/17/15 0330 09/16/15 2150 09/16/15 1529 09/16/15 1008 WBC 15.1* 13.1* 13.5* 7.3 7.2 HGB 11.3* 11.2* 11.7* 11.5* 12.1* HCT 33.3* 32.8* 33.9* 33.3* 35.8* PLATELET 271 223 227 211 231 PT -- -- -- 14.3 14.0 INR -- -- -- 1.1 1.1 PTT -- -- -- 29 28 Recent Labs 09/17/15 03309/16/15214909/16/15 1529 09/16/15 1008 NA 137 138 136 139 K 5.7* 5.3* 5.0 4.9 CL 101 100 99 96* CO2 20* 22 25 28 BUN 52* 48* 45* 44* CREATININE 6.94* 6.94* 6.99* 7.50* GLUCOSE 160 158 148 127 CALCIUM 8.3* 8.5 8.3* 9.4 MAGNESIUM 0.73 0.75 0.75 0.83 PHOS 6.7* 6.2* -- 5.0* ASSESSMENT: Ethel Bolden is a 65 y.o. male s/p donor kidney transplant. He is feelingwell this morning. Lisette,r his K+ is elevated and his cr is still elevated (though stable) at 6.9.Required 1L NS bolus yesterday for low urine output - drifting down again this a.m. Also will need close monitoring given donor was bacteremic. PLAN Immunosuppresion: - Simulect (Q4 day dosing, next due ) - Solu-medrol taper - Cellcept 750mg BID Neuro: - dPCA; will add oxy PRN today and work to transition over to all PO - tylenol PRN CV: - PRN metop and dilt for SBP >170 - not requiring; actually monitoring for low BPs at this point Pulm: - Wean O2 - IS, OOB GI: - Advance to Renal diet today, low phos, low K+ - Miralax daily /FEK: - 1/2 NS at 50cc/hr plus 1:1 replacement - Maintain whaley catheter - K+ elevated today; will monitor closely today; will engage Nephrology to follow-along in the event he needs dialysis given hyperkalemia - 500cc bolus this a.m. for SBP 110s, low urine output - will continue strict I/Os ID: - Afebrile, elevated WBC count, up-trending; will clinically correlate steroid vs. Infectious - Consult in to Transplant ID given pt's donor with known bacteremia, recent tick bite. Continue Vancomycin and Ceftazidime for now. - Blood cultures pending - Prophylactic nystatin and ganciclovir Heme: - SCDs Endo: - Home Synthroid PPX: - SCDs, Ambulating - IS - PPI DISPO: ISCU Code status: Full DYAN RODRIGUEZ MD PGY 1 General Surgery Pgr [id number] 09/17/2015 I reviewed all of the above findings and assessment of Dr. Rodriguez, examined the patinet and formulated the recommendations which accurately reflect mine. * Jesus Bradley, [facility] - 09/16/2015 5:40 PM EDT Clinical Pharmacist Note-Vanc Ethel Bolden [id number] 1950 Ethle Bolden is a 65 y.o. male is being monitored due to antibiotic therapy which includes intravenous vancomycin. Regimen: Vancomycin 2000 mg every once. With intermittent dosing by levels. Indication: empiric coverage of bacteremia s/p renal transplant infection Initiation Date: 09/15 Day of Therapy: ONE Targeted Goal Range: 15 - 20 mcg/mL Pharmacokinetic information: Wt Readings from Last 1 Encounters: 09/16/15 100.7 kg (222 lb 0.1 oz) Ht Readings from Last 1 Encounters: 09/16/15 177.8 cm (5' 10) Labs: Vancomycin: No results found for: SEGUNDO Creatinine clearance: CREATININE (mg/dL) Date Value 09/16/2015 6.99* Estimated Half-Life (T1/2) = Greater than 24 hours: Estimated Volume of distribution (Vd) = 80 Liters Recommendations: Dosing recommendations: ?? Based on this information a dose of 2000 mg once, to start at 1830 (time) on 09/16/2015 should achieve an estimated trough level of 15 - 20 mcg/mL. Monitoring recommendations: ?? A new steady state level should be achieved after 4 half-lives. I suggest rechecking a vancomycin trough level at 0800 (time) on 09/17/2015. We will continue to monitor the patient as long as he remains on vancomycin therapy. Please watch SCr, BUN and fluid status closely. Please page the care area pharmacist with any questions you may have. Alternately, during off-hours you may call [phone] to contact a pharmacist. JESUS BRADLEY RPH Pager [phone] * Brenda Masterson RN - 09/16/2015 11:24 AM EDT Pt transferred to OR via MD Saravia and staff. All required medications administered (see MAR), IV antibiotics sent to OR. Pt belongings left with pt's spouse Mundo. Report will be called to OR now by this RN. * Brenda Masterson RN - 09/16/2015 9:40 AM EDT Pt arrived on from home for kidney transplant today. Pre-op kidney protocol initiated. EKG and labs ordered, Vascular access notified for IV placement. Pharmacy on-call for all meds prior to OR. MD Saravia at bedside, Heel Seat Pounder, Ninoska GERBER will return for consent. Will continue to monitor. documented in this encounter H&P Notes * Marcus Saravia MD - 09/16/2015 9:[address] [facility] Department of Transplant Surgery H&P Note CC: Hemodialysis dependent ESRD HPI: Mr. Bolden is a 65 M PMH significant for DMII, HTN, HCV (with clearance of HCV on fibroscan)with hemodialysis dependent ESRD who presents today for donor kidney transplantation. He was initially evaluated for kidney transplantation on 07/17/15 and was activated on the recipient teddy 09/07/15. Last dialysis was on Thursday. He still does produce urine. He has been off his Plavix since 09/05/15 Denies any changes to his health, denies MAXIMINO hale CP. PM/SH: Past Medical History Diagnosis Date ??? Type [...] MD at [facility] OR ALL: No Known Allergies MED: No current facility-administered medications on file prior to encounter. Current Outpatient Prescriptions on File Prior to Encounter Medication Sig Dispense Refill ??? levothyroxine (SYNTHROID) 50 mcg Tablet Take 50 mcg by mouth daily. ??? clopidogrel (PLAVIX) 75 mg Tablet Take 1 tablet by mouth daily. 30 tablet 0 ??? hydrALAZINE (APRESOLINE) 25 mg Tablet Take 75 mg by mouth 2 times daily. ??? magnesium oxide (MAG-OX) 400 mg Tablet Take 400 mg by mouth daily. ??? carvedilol (COREG) 6.25 mg Tablet Take 12.5 mg by mouth 2 times daily (with meals). ??? furosemide (LASIX) 80 mg Tablet Take 40 mg by mouth 2 times daily. ??? spironolactone (ALDACTONE) 25 mg Tablet Take 25 mg by mouth daily. ??? pravastatin (PRAVACHOL) 20 mg Tablet Take 20 mg by mouth daily. ??? calcitRIOL (ROCALTROL) 0.25 mcg Capsule Take 1 capsule by mouth three times a week. 60 tablet 3 ??? ONE TOUCH ULTRA TEST Strip 0 ??? ONE TOUCH ULTRAMINI Kit 0 ??? ONE TOUCH DELICA LANCETS 30 gauge Misc 0 ??? doxazosin (CARDURA) 4 mg Tablet Take 1 tablet by mouth nightly. 90 tablet 3 ??? omeprazole (PRILOSEC) 20 mg capsule Take 20 mg by mouth daily. Social history: History Social History ??? Marital Status: Spouse [...] on file Social History Narrative Family history: non contributory ROS: As stated above, otherwise remainder of 14-point system review is negative Physical Exam: Temp: [36.4 ??C (97.5 ??F)] Heart Rate: [78] Resp: [20] BP: (140)/(62) SpO2: -- Gen: NAD Neuro: a/ox3 CV: RRR, no mrg 2+ femoral pulses bilaterally Pulm: CTAB GI: s/nt/nd : normal genitalia MSK: no cce palpable thrill over LUE brachiocephalic fistula, No results found for this or any previous visit (from the past 24 hour(s)). Assessment and Plan: 74 M PMH significant for HCV with hemodialysis dependent ESRD 2/2 HTN who presents today for CDC high risk donor kidney transplantation. Stat CBC, CMP, Type and cross, coag panel Induction immunosuppression with Simulect with premedication of solumedrol, benadryl and acetaminophen Perioperative antibiotics with Ancef and vancomycin Protonix 40mg NPO Consent obtained prior to transplantation Marcus Saravia MD 09/16/2015 Associated attestation - Larry Larkin MD - 09/17/2015 11:02 AM EDT I have seen and examined the patient, providing carrizales components as outlined below. I have reviewed the resident???s above note; my evaluation of the patient is below: 65 yo male with hep C and ESRD on dialysis. Admitted for DDKT. The donor is [facility] high risk for priorIVDA and also note to have a positive blood culture. I discussed this with the patient at home and again on admission. He denies active illness. VS as noted above Abdomen soft 2+ femoral pulses bilaterally A/P no medical or surgical contraindications to transplantation. Immunosuppression reviewed. Plan simulect, steroid, tacrolimus, mmf as he is hep C. I had a long discussion with this patient regarding the conduct of renal transplantation including the operative procedure and the perioperative risks including bleeding, infection, rejection, lymphocoele, urine leak, stroke, heart attack, transmission of disease or malignancy, and . The patient and family understand these risks and wish to proceed with transplantation. I have answered all their questions. I reviewed the increase risk associated with hep C infection, bacteremia, and recenttick bite. documented in this encounter Miscellaneous Notes * Plan of Care - Margarette Scott RN - 09/20/2015 4:31 AM EDT Problem: General Plan of Care Goal: Plan of Care Review Outcome: Ongoing (Interventions Implemented as Appropriate) 09/20/15 0423 Plan of Care Review Plan of Care Outcome Status ongoing (interventions implemented as appropriate) Progress progress toward functional goals as expected Coping/Psychosocial Response Interventions Plan of Care Reviewed with patient OUTCOME EVALUATION NOTE: OUTCOME SUMMARY: Mr. Bolden had a good shift. Ambulated with encouragement. Improved use of I/O tracking sheet, increasing independence. Voiding frequently, one episode of incontinence. Reports pain as a 2-3/10 with one episode of higher pain, returned to redose patient, found to be sleeping, redose held. Tolerating diet, medication teaching offered when administered, patient receptive. Will continue to monitor. PLAN MOVING FORWARD: Likely discharge INDIVIDUALIZED FALL PREVENTION: Patient independent at baseline, reinforcement offered for staff assistance due to abdominal incision. Use of narcotic pain medication, patient reports very infrequentprior use. Urinal at bedside, frequent toileting suggested. Non skid slippers when out of bed Assistance: Standby Supervision: Arms reach Surveillance: Purposeful rounding, call robles in reach CPG OUTCOME EVALUATION: Goal: Individualization and Mutuality Outcome: Ongoing (Interventions Implemented as Appropriate) 09/16/15 1000 Mutuality/Individual Preferences What anxieties, fears or concerns do you have about your health or care? none What questions do you have about your health or care? none What information would help us give you more personalized care? none Goal: Fall Prevention-Safe Patient Handling Outcome: Ongoing (Interventions Implemented as Appropriate) 09/19/15 0845 09/19/15199909/19/152001 Musculoskeletal Interventions Activity/Level of Assistance -- -- -- Positioning -- -- HOB up 30-45 degrees;supine;independent Muscle Strengthening activity/mobility promoted;mobility in bed promoted;up in chair encouraged formeals and activities -- -- Self-Care Promotion independence encouraged while providing assistance -- -- Activity and Safety Assistive Device -- None -- Stephens Fall Risk History of Falling -- -- 0 Secondary Diagnosis -- -- 15 Ambulatory Aids -- -- 0 Intravenous Therapy/Heparin/Saline Lock -- -- 20 Gait/Transferring -- -- 0 Mental Status -- -- 0 Score -- -- 35 OTHER Stephens Fall Risk -- -- Med Safety Interventions Safety Precautions/Fall Reduction -- -- commode/urinal/bedpan at bedside;environmental modification;fall reduction program maintained;lighting adjusted for task/safety;nonskid shoes/slippers when outof bed;room near unit station 09/19/15 1241 Musculoskeletal Interventions Activity/Level of Assistance up in room;independently Positioning -- Muscle Strengthening -- Self-Care Promotion -- Activity and Safety Assistive Device -- Stephens Fall Risk History of Falling -- Secondary Diagnosis -- Ambulatory Aids -- Intravenous Therapy/Heparin/Saline Lock -- Gait/Transferring -- Mental Status -- Score -- OTHER Stephens Fall Risk -- Safety Interventions Safety Precautions/Fall Reduction -- Goal: Infection Control Outcome: Ongoing (Interventions Implemented as Appropriate) 09/19/15200109/19/152101 Coping/Psychosocial Response Interventions Counseling -- emotional support provided;reassurance provided;understanding of situation facilitated;verbalization of feelings encouraged Safety Interventions Isolation Precautions standard precautions maintained -- Infection Prevention rest/sleep promoted;promote handwashing;nutrition promoted;hydration promoted;environmental surveillance;bronchial hygiene promoted;blood glucose management -- Goal: Discharge Needs Assessment Outcome: Ongoing (Interventions Implemented as Appropriate) 09/20/15422 Discharge Needs Assessment Concerns to be Addressed no discharge needs identified Readmission Within the Last 30 Days no previous admission in last 30 days Equipment Needed After Discharge none Current Health Anticipated Changes Related to Illness none Self-Care Equipment Currently Used at Home none Living Environment Transportation Available car;family or friend will provide Problem: Pain, Acute (Adult, Obstetrics) Goal: Identify Signs and Symptoms and Related Risk Factors Signs and symptoms and related risk factors are identified upon initiation of Human Response Clinical Practice Guideline (CPG) Outcome: Ongoing (Interventions Implemented as Appropriate) 09/20/15422 Pain, Acute Related Risk Factors (Acute Pain) knowledge deficit;poor general health;stress;surgery Signs and Symptoms (Acute Pain) constipation/diarrhea;facial mask of pain/grimace;verbalization of pain descriptors Goal: Acceptable Pain Control/Comfort Level Patient will demonstrate the desired outcomes. Outcome: Ongoing (Interventions Implemented as Appropriate) 09/20/15422 Pain, Acute (Adult, Obstetrics) Acceptable Pain Control/Comfort Level making progress toward outcome Problem: Skin Integrity Impairment, Risk/Actual (Adult, Obstetrics) Goal: Identify Signs and Symptoms and Related Risk Factors Signs and symptoms and related risk factors are identified upon initiation of Human Response Clinical Practice Guideline (CPG) Outcome: Ongoing (Interventions Implemented as Appropriate) 09/20/15422 Skin Integrity Impairment, Risk/Actual Personal Related Risk Factors (Skin Integrity Impairment, Risk/Actual) sleep deprivation;stress Physiological Related Risk Factors (Skin Integrity Impairment, Risk/Actual) immunologic;metabolic/endocrine imbalance;oxygen transport impairment;skin turgor alteration Treatment Related Related Risk Factors (Skin Integrity Impairment, Risk/Actual) invasive catheters;medication;surgery Goal: Skin Integrity/Wound Healing Patient will demonstrate the desired outcomes. Outcome: Ongoing (Interventions Implemented as Appropriate) 09/20/15422 Skin Integrity Impairment, Risk/Actual (Adult, Obstetrics) Skin Integrity/Wound Healing making progress toward outcome * Plan of Care - Tamela Mckeon RN - 09/19/2015 6:12 PM EDT Problem: General Plan of Care Goal: Plan of Care Review Outcome: Ongoing (Interventions Implemented as Appropriate) 09/19/151756 Plan of Care Review Plan of Care Outcome Status ongoing (interventions implemented as appropriate) Progress progress toward functional goals as expected Coping/Psychosocial Response Interventions Plan of Care Reviewed with patient OUTCOME EVALUATION NOTE: OUTCOME SUMMARY: Surgica sites WNL, HARBOR TUG CAPTAIN, alessandro and well approximated. Patient transferred to IR for central access, for home Abx regime. Patients FC removed, patient voiding with no concerns. Reinforced teaching ofpatient documentation of I&O. Patient IVF d/c, and pt tolerating PO nutrition. Home Abx teaching [facility]x [facility] [place] [facility] PLAN MOVING FORWARD: Patient +Flatus awaiting BM. Discharge tomorrow with VNA and home abx. INDIVIDUALIZED FALL PREVENTION: Assistance: Standby assist, IV pole. Supervision: Min assist with ADLs. Surveillance: Purposeful rounding, masimo, call light in reach, room near nurses station. CPG GOAL OUTCOME EVALUATION: Problem: Pain, Acute (Adult, Obstetrics) Goal: Identify Signs and Symptoms and Related Risk Factors Signs and symptoms and related risk factors are identified upon initiation of Human Response Clinical Practice Guideline (CPG) Outcome: Ongoing (Interventions Implemented as Appropriate) 09/19/151756 Pain, Acute Related Risk Factors (Acute Pain) disease process;knowledge deficit;procedures;stress;surgery Signs and Symptoms (Acute Pain) constipation/diarrhea;fatigue/weakness Problem: Skin Integrity Impairment, Risk/Actual (Adult, Obstetrics) Goal: Identify Signs and Symptoms and Related Risk Factors Signs and symptoms and related risk factors are identified upon initiation of Human Response Clinical Practice Guideline (CPG) Outcome: Ongoing (Interventions Implemented as Appropriate) 09/19/151756 Skin Integrity Impairment, Risk/Actual Personal Related Risk Factors (Skin Integrity Impairment, Risk/Actual) stress Physiological Related Risk Factors (Skin Integrity Impairment, Risk/Actual) immunologic;metabolic/endocrine imbalance Treatment Related Related Risk Factors (Skin Integrity Impairment, Risk/Actual) invasive catheters;medication;surgery * Plan of Care - Keyana Moy RN - 09/19/2015 2:22 AM EDT Problem: General Plan of Care Goal: Plan of Care Review Outcome: Ongoing (Interventions Implemented as Appropriate) 03/1422109/18/151929 Plan of Care Review Plan of Care Outcome Status ongoing (interventions implemented as appropriate) -- Coping/Psychosocial Response Interventions Plan of Care Reviewed with -- patient OUTCOME EVALUATION NOTE: OUTCOME SUMMARY: Patient denies pain nor nausea, had a good night. Encouraged fluid intake and to ask for PRN pain med. PLAN MOVING FORWARD: Will ambulate and will take adequate fluid intake. INDIVIDUALIZED FALL PREVENTION: Assistance: 1 standby assist Supervision: Uses call light appropriately Surveillance: Purposeful rounding, call light at the bedside CPG OUTCOME EVALUATION: Goal: Individualization and Mutuality Outcome: Ongoing (Interventions Implemented as Appropriate) Goal: Fall Prevention-Safe Patient Handling Outcome: Ongoing (Interventions Implemented as Appropriate) 09/18/151929 Musculoskeletal Interventions Activity/Level of Assistance up ad chiquita;with stand by assist Positioning HOB up 30-45 degrees Muscle Strengthening activity/mobility promoted Self-Care Promotion independence encouraged while providing assistance;assistance provided to decrease frustration Safety Interventions Safety Precautions/Fall Reduction commode/urinal/bedpan at bedside;assistive device;environmental modification;fall reduction program maintained;low bed;mattress on floor;mobility aid;lighting adjusted for task/safety;muscle strengthening facilitated;nonskid shoes/slippers when out of bed Goal: Infection Control Outcome: Ongoing (Interventions Implemented as Appropriate) 09/18/151929 Coping/Psychosocial Response Interventions Counseling calming techniques promoted;verbalization of feelings encouraged;understanding of situation facilitated Safety Interventions Isolation Precautions standard precautions maintained Infection Prevention blood glucose management;bronchial hygiene promoted;environmental surveillance;hydration promoted;nutrition promoted;promote handwashing;rest/sleep promoted Goal: Discharge Needs Assessment Outcome: Ongoing (Interventions Implemented as Appropriate) 09/16/15 1000 Living Environment Transportation Available family or friend will provide Problem: Pain, Acute (Adult, Obstetrics) Goal: Identify Signs and Symptoms and Related Risk Factors Signs and symptoms and related risk factors are identified upon initiation of Human Response Clinical Practice Guideline (CPG) Outcome: Ongoing (Interventions Implemented as Appropriate) 09/17/15221 Pain, Acute Related Risk Factors (Acute Pain) surgery Signs and Symptoms (Acute Pain) verbalization of pain descriptors Goal: Acceptable Pain Control/Comfort Level Patient will demonstrate the desired outcomes. Outcome: Ongoing (Interventions Implemented as Appropriate) 09/17/15221 Pain, Acute (Adult, Obstetrics) Acceptable Pain Control/Comfort Level making progress toward outcome Problem: Skin Integrity Impairment, Risk/Actual (Adult, Obstetrics) Goal: Identify Signs and Symptoms and Related Risk Factors Signs and symptoms and related risk factors are identified upon initiation of Human Response Clinical Practice Guideline (CPG) Outcome: Ongoing (Interventions Implemented as Appropriate) Goal: Skin Integrity/Wound Healing Patient will demonstrate the desired outcomes. Outcome: Ongoing (Interventions Implemented as Appropriate) 09/19/15 0216 Skin Integrity Impairment, Risk/Actual (Adult, Obstetrics) Skin Integrity/Wound Healing making progress toward outcome * Plan of Care - Isela Clay RN - 09/18/2015 5:44 AM EDT Problem: General Plan of Care Goal: Plan of Care Review Outcome: Ongoing (Interventions Implemented as Appropriate) 09/17/15 0222 09/17/151999 Plan of Care Review Plan of Care Outcome Status ongoing (interventions implemented as appropriate) -- Progress no change -- Coping/Psychosocial Response Interventions Plan of Care Reviewed with -- patient OUTCOME EVALUATION NOTE: OUTCOME SUMMARY: AAOx4. VSS-2L NC. Whaley/left LEEANNA being replaced by 0.45% saline 0.5ml/ml. LEEANNA putting out small amount of serousanginous output. Inscision dry/intact СЕРГЕЙ. K this am is 5.2. Pt received prn oxycodone [id number]. Pt was OOB walked 100ft w/o any complaints. Pt slept between care overnight. PLAN MOVING FORWARD: Transfer to the floor. INDIVIDUALIZED FALL PREVENTION: Call robles in reach, pt close to nurse station, and bed in low position. Assistance: 1 assist w/walker Supervision: RN/CHERIE Surveillance: Tong bedside monitor Goal: Individualization and Mutuality Outcome: Ongoing (Interventions Implemented as Appropriate) 09/16/15 1000 Mutuality/Individual Preferences What anxieties, fears or concerns do you have about your health or care? none What questions do you have about your health or care? none What information would help us give you more personalized care? none Goal: Fall Prevention-Safe Patient Handling Outcome: Ongoing (Interventions Implemented as Appropriate) 09/17/15199909/18/15 0400 09/18/15 0537 Musculoskeletal Interventions Activity/Level of Assistance -- bed rest -- Positioning -- HOB up 30-45 degrees -- Muscle Strengthening -- -- activity/mobility promoted;mobility in bed promoted Self-Care Promotion -- -- assistance provided to decrease frustration Activity and Safety Assistive Device -- -- Standard walker Stephens Fall Risk History of Falling 0 -- -- Secondary Diagnosis 15 -- -- Ambulatory Aids 15 -- -- Intravenous Therapy/Heparin/Saline Lock 20 -- -- Gait/Transferring 0 -- -- Mental Status 0 -- -- Score 50 -- -- OTHER Stephens Fall Risk High -- -- Safety Interventions Safety Precautions/Fall Reduction -- environmental modification -- Goal: Infection Control Outcome: Ongoing (Interventions Implemented as Appropriate) 09/17/15199909/18/15 0400 Coping/Psychosocial Response Interventions Counseling emotional support provided -- Safety Interventions Isolation Precautions -- standard precautions maintained Infection Prevention bronchial hygiene promoted;blood glucose management -- Goal: Discharge Needs Assessment Outcome: Ongoing (Interventions Implemented as Appropriate) 09/16/15 1000 Living Environment Transportation Available family or friend will provide Problem: Pain, Acute (Adult, Obstetrics) Goal: Identify Signs and Symptoms and Related Risk Factors Signs and symptoms and related risk factors are identified upon initiation of Human Response Clinical Practice Guideline (CPG) Outcome: Ongoing (Interventions Implemented as Appropriate) 09/17/15 0222 Pain, Acute Related Risk Factors (Acute Pain) surgery Signs and Symptoms (Acute Pain) verbalization of pain descriptors Goal: Acceptable Pain Control/Comfort Level Patient will demonstrate the desired outcomes. Outcome: Ongoing (Interventions Implemented as Appropriate) 09/17/15 0222 Pain, Acute (Adult, Obstetrics) Acceptable Pain Control/Comfort Level making progress toward outcome Problem: Skin Integrity Impairment, Risk/Actual (Adult, Obstetrics) Goal: Identify Signs and Symptoms and Related Risk Factors Signs and symptoms and related risk factors are identified upon initiation of Human Response Clinical Practice Guideline (CPG) Outcome: Ongoing (Interventions Implemented as Appropriate) Goal: Skin Integrity/Wound Healing Patient will demonstrate the desired outcomes. Outcome: Ongoing (Interventions Implemented as Appropriate) * Consult Note - Tal Eagle MD - 09/17/2015 6:49 PM EDT TRANSPLANT NEPHROLOGY CONSULT REASON FOR CONSULTATION: medical management of transplant kidney referred by Dr. 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 male with history of DM, HTN, HCV, ESRD (Renal biopsy showing diabetic and ischemic nephropathy) who is s/p renal transplant from donor on 09/16/2015, is being requested to be seen for medical management of transplant kidney. Pt was getting HD MWF at [facility]. He was referred by Dr. Nunez for pre transplant evaluation for his kidney and was seen by Dr Eagle on 04/19/2015. He apparently had [facility]been [facility]. He was told he will need a liver biopsy prior to placing him on the active transplant wait list. He has been cleared now with fibroscan. This was considered a high risk transplant as both the he and the donor were HCV positive. His transplant team was notified that the donor had prior blood cultures prior to organ procurement. He grewGroup C Strep from blood cultures and was on 48 hours of antibiotics prior to procurement. Repeat blood cultures were no growth for 12 hours prior to procurement. Additionally, there was a report that the donor had a tick bite about 3 months ago with possible rash and was never treated for tick-borne illnesses. Post op complications: Pt tolerated procedure very well and was induced with Simulect, solu-medrol, benadryl, tylenol. He was given 1L bolus overnight for low urine output with good response. He was seen in his room this am with transplant team, he was feeling ok with no pain at the site of surgery. CMV status: D+/R+ EBV status: D+/R+ ROS: Constitutional - No fevers, chills, weight loss Skin - No rash or itchy skin HEENT - No headaches, visual changes, dry eyes/ mouth, sores in mouth Lymph - No swollen glands Resp - No cough, shortness of breath CV - No chest pain, leg swelling, difficulty breathing lying flat GI - No nausea, vomiting, diarrhea. No constipation. No black or bloody stools. No abdominal pain. - No change in urine output. No blood in urine. Neuro - No weakness. No numbness/ tingling in extremities. Heme - No easy bruising or nose bleeds MS - No red/ swollen joints MEDICATIONS: ??? levothyroxine 50 mcg Oral QAM ??? polyethylene glycol (MIRALAX)oral powder 17 g Oral Daily ??? heparin (porcine) 5,000 Units Subcutaneous 2 times per day ??? cefTRIAXone 2 g Intravenous Q24H ??? sodium chloride 0.45% 0-500 mL/hr Intravenous Q2H ??? nystatin 5 mL Oral 4 Times Daily ??? mycophenolate 750 mg Oral BID ??? bisacodyl 10 mg Oral BID ??? pantoprazole 40 mg Oral Daily Or ??? pantoprazole 40 mg Intravenous Daily ??? ganciclovir 75 mg Intravenous Q24H ??? [START ON 09/18/2015] methylPREDNISolone 125 mg Intravenous Daily Followed by ??? [START ON 09/19/2015] methylPREDNISolone 80 mg Intravenous Daily Followed by ??? [START ON 09/20/2015] methylPREDNISolone 40 mg Intravenous Daily Followed by ??? [START ON 09/21/2015] predniSONE 20 mg Oral Daily ??? [START ON 09/20/2015] basiliximab (SIMULECT) IV 20 mg Intravenous Once Allergies: No Known Allergies PSH: Past Surgical History Procedure Laterality Date ??? Pro anastomosis, av, any site Left 05/09/2015 AV FISTULA CREATION, DIRECT HEMODIALYSIS, ANY SITE, EG ASHWINI FISTULA UPPER EXTREMITY performed by Que Amaro MD at [facility] OR ??? Pro transplantation of kidney N/A 09/16/2015 @KIDNEY TRANSPLANT, WITHOUT RECIPIENT NEPHRECTOMY performed by Larry Larkin MD at [facility] OR ??? Pro transplant, prep cadaver renal graft N/A 09/16/2015 @PREPARATION CADAVERIC RENAL ALLOGRAFT performed by Larry Larkin MD at [facility] OR FH: Father had heart attack ?? Mother is still alive SH: History Social History ??? Marital Status: Spouse [...] ??? Not on file Social History Narrative Allergies / ADRs: No Known Allergies PHYSICAL EXAM: Filed Vitals: 09/17/15 1800 BP: 137/68 Pulse: 56 Temp: 36.5 ??C (97.7 ??F) Resp: 10 Appearance - Alert, Comfortable. Skin - No exanthem. HEENT - Sclera white. Mucous membranes moist. Pharynx pink. No nasal discharge. Lymph - No cervical lymphadenopathy. Chest:?? Lungs clear to ausculatation w/o wheezes/ rhonchi/ crackles. Heart - S1 and S2 clear w/o murmur, gallop, or rub. JVP not elevated Abd - Soft. + BS. No bruit. Non tender. No organomegaly. Ext -?? Warm. No cyanosis. No dependent edema. Neuro - No clonus/ asterixis. Muscle strength equal bilaterally. CN II - XII grossly intact Access-. Rt sided chest TDC Labs/ Imaging: Recent Results (from the past 24 hour(s)) Comprehensive metabolic panel (non-fasting) Result Value Ref Range Glucose Lvl 158 65 - 199 mg/dL BUN 48 (H) 10 - 20 mg/dL Creatinine 6.94 (H) 0.80 - 1.50 mg/dL Sodium 138 135 - 145 mmol/L Potassium 5.3 (H) 3.5 - 5.0 mmol/L Chloride 100 98 - 107 mmol/L CO2 22 22 - 31 mmol/L Anion Gap 16 (H) 5 - 15 mmol/L Calcium 8.5 8.5 - 10.5 mg/dL Total Protein 6.6 6.1 - 8.0 gm/dL Albumin 3.4 3.2 - 5.2 gm/dL AST 19 0 - 39 unit/L ALT 17 0 - 55 unit/L Alk Phos 59 40 - 120 unit/L Total Bilirubin 0.7 0.2 - 1.3 mg/dL Bili, Direct 0.2 0.0 - 0.3 mg/dL Estimated GFR 8 (L) >=60 Magnesium Result Value Ref Range Magnesium 0.75 0.69 - 1.07 mmol/L Phosphorus Result Value Ref Range Phosphorus 6.2 (H) 2.5 - 4.5 mg/dL Hemogram Result Value Ref Range WBC 13.5 (H) 4.0 - 10.0 x10(3)/mcL RBC 3.70 (L) 4.63 - 6.08 x10(6)/mcL Hemoglobin 11.7 (L) 13.7 - 17.5 gm/dL Hematocrit 33.9 (L) 40.0 - 51.0 % MCV 91.6 79.0 - 92.0 fL MCH 31.6 25.6 - 32.2 pg MCHC 34.5 32.0 - 36.5 gm/dL Platelets 227 145 - 370 x10(3)/mcL RDWSD 47.7 (H) 35.0 - 46.0 fL RDWCV 14.3 10.9 - 14.4 % MPV 9.5 9.0 - 12.0 fL Differential, Automated Result Value Ref Range Neutrophils % 92.3 % Neutr Abs (ANC) 12.45 (H) 1.50 - 6.30 x10(3)/mcL Lymphocytes % 3.6 % Lymphocytes Abs 0.5 (L) 1.0 - 3.6 x10(3)/mcL Monocytes % 3.6 % Monocyte Abs 0.5 0.2 - 1.0 x10(3)/mcL Eosinophils % 0.1 % Eosinophils Abs 0.0 0.0 - 0.5 x10(3)/mcL Basophils % 0.1 % Basophils Abs 0.0 0.0 - 0.2 x10(3)/mcL Immature Gran % 0.30 % Ayesha Gran Abs 0.04 0.00 - 0.05 x10(3)/mcL Comprehensive metabolic panel (non-fasting) Result Value Ref Range Glucose Lvl 160 65 - 199 mg/dL BUN 52 (H) 10 - 20 mg/dL Creatinine 6.94 (H) 0.80 - 1.50 mg/dL Sodium 137 135 - 145 mmol/L Potassium 5.7 (H) 3.5 - 5.0 mmol/L Chloride 101 98 - 107 mmol/L CO2 20 (L) 22 - 31 mmol/L Anion Gap 16 (H) 5 - 15 mmol/L Calcium 8.3 (L) 8.5 - 10.5 mg/dL Total Protein 6.4 6.1 - 8.0 gm/dL Albumin 3.3 3.2 - 5.2 gm/dL AST 20 0 - 39 unit/L ALT 16 0 - 55 unit/L Alk Phos 55 40 - 120 unit/L Total Bilirubin 0.6 0.2 - 1.3 mg/dL Bili, Direct 0.2 0.0 - 0.3 mg/dL Estimated GFR 8 (L) >=60 Magnesium Result Value Ref Range Magnesium 0.73 0.69 - 1.07 mmol/L Phosphorus Result Value Ref Range Phosphorus 6.7 (H) 2.5 - 4.5 mg/dL Hemogram Result Value Ref Range WBC 13.1 (H) 4.0 - 10.0 x10(3)/mcL RBC 3.56 (L) 4.63 - 6.08 x10(6)/mcL Hemoglobin 11.2 (L) 13.7 - 17.5 gm/dL Hematocrit 32.8 (L) 40.0 - 51.0 % MCV 92.1 (H) 79.0 - 92.0 fL MCH 31.5 25.6 - 32.2 pg MCHC 34.1 32.0 - 36.5 gm/dL Platelets 223 145 - 370 x10(3)/mcL RDWSD 48.0 (H) 35.0 - 46.0 fL RDWCV 14.3 10.9 - 14.4 % MPV 9.4 9.0 - 12.0 fL Differential, Automated Result Value Ref Range Neutrophils % 92.5 % Neutr Abs (ANC) 12.16 (H) 1.50 - 6.30 x10(3)/mcL Lymphocytes % 3.6 % Lymphocytes Abs 0.5 (L) 1.0 - 3.6 x10(3)/mcL Monocytes % 3.5 % Monocyte Abs 0.5 0.2 - 1.0 x10(3)/mcL Eosinophils % 0.1 % Eosinophils Abs 0.0 0.0 - 0.5 x10(3)/mcL Basophils % 0.1 % Basophils Abs 0.0 0.0 - 0.2 x10(3)/mcL Immature Gran % 0.20 % Ayesha Gran Abs 0.02 0.00 - 0.05 x10(3)/mcL POCT Glucose Result Value Ref Range POC Glucose 143 65 - 199 mg/dL Vancomycin, trough Result Value Ref Range Vanc Trough 24.6 mg/L Comprehensive metabolic panel (non-fasting) Result Value Ref Range Glucose Lvl 157 65 - 199 mg/dL BUN 59 (H) 10 - 20 mg/dL Creatinine 6.96 (H) 0.80 - 1.50 mg/dL Sodium 137 135 - 145 mmol/L Potassium Not Perf 3.5 - 5.0 mmol/L Chloride 100 98 - 107 mmol/L CO2 16 (L) 22 - 31 mmol/L Anion Gap 21 (H) 5 - 15 mmol/L Calcium 8.6 8.5 - 10.5 mg/dL Total Protein 6.7 6.1 - 8.0 gm/dL Albumin 3.5 3.2 - 5.2 gm/dL AST Not Perf 0 - 39 unit/L ALT 18 0 - 55 unit/L Alk Phos 57 40 - 120 unit/L Total Bilirubin 0.7 0.2 - 1.3 mg/dL Bili, Direct Not Perf 0.0 - 0.3 mg/dL Estimated GFR 8 (L) >=60 Hemogram Result Value Ref Range WBC 15.1 (H) 4.0 - 10.0 x10(3)/mcL RBC 3.58 (L) 4.63 - 6.08 x10(6)/mcL Hemoglobin 11.3 (L) 13.7 - 17.5 gm/dL Hematocrit 33.3 (L) 40.0 - 51.0 % MCV 93.0 (H) 79.0 - 92.0 fL MCH 31.6 25.6 - 32.2 pg MCHC 33.9 32.0 - 36.5 gm/dL Platelets 271 145 - 370 x10(3)/mcL RDWSD 49.5 (H) 35.0 - 46.0 fL RDWCV 14.5 (H) 10.9 - 14.4 % MPV 9.5 9.0 - 12.0 fL Differential, Automated Result Value Ref Range Neutrophils % 90.3 % Neutr Abs (ANC) 13.67 (H) 1.50 - 6.30 x10(3)/mcL Lymphocytes % 3.7 % Lymphocytes Abs 0.6 (L) 1.0 - 3.6 x10(3)/mcL Monocytes % 5.6 % Monocyte Abs 0.8 0.2 - 1.0 x10(3)/mcL Eosinophils % 0.0 % Eosinophils Abs 0.0 0.0 - 0.5 x10(3)/mcL Basophils % 0.1 % Basophils Abs 0.0 0.0 - 0.2 x10(3)/mcL Immature Gran % 0.30 % Ayesha Gran Abs 0.04 0.00 - 0.05 x10(3)/mcL Magnesium Result Value Ref Range Magnesium 0.75 0.69 - 1.07 mmol/L Phosphorus Result Value Ref Range Phosphorus 6.9 (H) 2.5 - 4.5 mg/dL Potassium Result Value Ref Range Potassium 5.6 (H) 3.5 - 5.0 mmol/L Hemogram Result Value Ref Range WBC 16.4 (H) 4.0 - 10.0 x10(3)/mcL RBC 3.60 (L) 4.63 - 6.08 x10(6)/mcL Hemoglobin 11.1 (L) 13.7 - 17.5 gm/dL Hematocrit 33.9 (L) 40.0 - 51.0 % MCV 94.2 (H) 79.0 - 92.0 fL MCH 30.8 25.6 - 32.2 pg MCHC 32.7 32.0 - 36.5 gm/dL Platelets 276 145 - 370 x10(3)/mcL RDWSD 49.3 (H) 35.0 - 46.0 fL RDWCV 14.3 10.9 - 14.4 % MPV 9.4 9.0 - 12.0 fL Differential, Automated Result Value Ref Range Neutrophils % 88.3 % Neutr Abs (ANC) 14.45 (H) 1.50 - 6.30 x10(3)/mcL Lymphocytes % 3.1 % Lymphocytes Abs 0.5 (L) 1.0 - 3.6 x10(3)/mcL Monocytes % 8.3 % Monocyte Abs 1.4 (H) 0.2 - 1.0 x10(3)/mcL Eosinophils % 0.0 % Eosinophils Abs 0.0 0.0 - 0.5 x10(3)/mcL Basophils % 0.1 % Basophils Abs 0.0 0.0 - 0.2 x10(3)/mcL Immature Gran % 0.20 % Ayesha Gran Abs 0.03 0.00 - 0.05 x10(3)/mcL Recent Labs 09/17/15215409/17/15 0917 09/17/15 0330 09/16/15 2150 09/16/15 1529 09/16/15 1008 05/16/15 1633 05/11/15 12/28/14 CREATININE 6.73* 6.96* 6.94* 6.94* 6.99* 7.50* 4.29* 6.16 4.32 Impression/ Plan: 65 M PMH significant for DM, HTN, HCV (with clearance of HCV on fibroscan) with hemodialysis dependent ESRD who is s/p donor kidney transplantation on 09/16/2015. He is being requested to be seen for medical management of transplant kidney. Transplant Status: Kidney function creat is stable UOP is improving made around 1.18 L urine yesterday Immunosuppression: Simulect (Q4 day dosing, next due ) Solu-medrol taper Cellcept 750mg BID PO4/Mg/K: Watch phos closely Mg in acceptable range K in acceptable range No need for supplements for now Hypertension: Well controlled Infectious prophylaxis: Ceftraixone ganciclovir Seen and Discussed w/ Dr. Shagufta Villasenor MD Nephrology fellow Pager # [phone] I reviewed all of the above findings and assessment of Dr. Villasenor, examined the patient and formulated the recommendations which accurately reflect mine. 80 Min., >50%(40 min) in direct face to face chromosomal disorders counselor. o Discussion with the patient and/or family concerned the following: ? Diagnostic results or recommended studies ? Prognosis; ? Risks and benefits of management; ? Instructions for management; ? Compliance with treatment; ? Risk factor reduction; ? Patient and family education. * Consult Note - Brian Grande MD - 09/17/2015 12:53 PM EDT INFECTIOUS DISEASE INITIAL CONSULT NOTE Reason for Consult: Renal transplant--09/16/2015, donor Positive blood cultures from donor Consulting Service: Transplant Consulting Attending: Larry Larkin MD Admission Date: 09/16/2015 History of Present Illness: 65 y.o. male with history of HCV, ESRD on HD, type 2 DM who presented for renal transplant from donor. We have been consulted as the donor had positive blood cultures. Mr. Tubiello presented on 09/15 for a renal transplant from a donor. This was considered a high risk transplant as both the he and the donor are HCV positive. His transplant team was notifiedthat the donor had prior blood cultures prior to organ procurement. Based on the information we have, the donor grew Group C Strep from blood cultures and was on 48 hours of antibiotics prior to procurement. Repeat blood cultures were no growth for 12 hours prior to procurement. Additionally, thereis a report that the donor had a tick bite about 3 months ago with possible rash and was never treated for tick-borne illnesses. Mr. Bolden currently feels well with no fevers or chills. Pain is controlled. Review of Systems: Constitutional: Denies fever, chills, night sweats HEENT: Denies headache, sore throat, nasal congestion Cardiovascular: Denies chest pain, pressure or palp Respiratory: Denies SOB, cough GI: Denies dysphagia, abdominal pain, N/V/D/C : Denies dysuria Musculoskeletal: Denies myalgias or arthralgias Skin: No skin complaints, rash Neurological: No focal weakness, numbness or tingling Allergies: No Known Allergies Pertinent Medications: Ceftazidime 2g IV q12hr (09/15- ) Ganciclovir 75mg IV q24hr (09/15- ) Vancomycin (09/15- ) MMF 750mg PO BID Basiliximab (09/15) Past Medical and Surgical History: Past Medical [...] NEPHRECTOMY performed by Larry Larkin MD at [facility] MA[facility] OR ??? Pro transplant, prep cadaver renal graft N/A 09/16/2015 @PREPARATION CADAVERIC RENAL ALLOGRAFT performed by Larry Larkin MD at [facility] MAIN OR Social History and Habits: - Lives with his - Retired Physical Exam: Last value Range last 24 hrs Temperature Temp: 36.9 ??C (98.4 ??F) Temp: [36.4 ??C (97.5 ??F)-36.9 ??C (98.4 ??F)] Heart Rate Heart Rate: 58 Heart Rate: [58-63] Blood Pressure BP: 114/61 mmHg BP: (114-144)/(61-78) Respiratory Rate Resp: 10 Resp: [7-14] SpO2 SpO2: 96 % SpO2: [90 %-97 %] I/O last 3 completed shifts: In: 4807.5 [P.O.:360; I.V.:4397.5; IV Piggyback:50] Out: 1575 [Urine:1185; Other:240; Blood:150] Patient Vitals for the past 168 hrs: Weight 09/17/15 0800 (!) 102.7 kg (226 lb 6.6 oz) 09/16/15 0948 100.7 kg (222 lb 0.1 oz) General: NAD, laying comfortably in bed HEENT: NC/AT, Oropharynx clear with no lesions, MM moist, neck supple Cardiovascular: Normal S1 and S2, no m/r/g Respiratory: CTA b/l, no wheezes or crackles Abd: Surgical incision closed, no erythema or drainage. Normoactive BS, soft, NT, ND : Whaley draining yellow urine Extrem: LUE fistula pulsatile, non-tender Skin: Warm and dry without rash Laboratory: Recent Labs 09/17/15 1131 09/17/15 0917 09/17/15 0330 WBC 16.4* 15.1* 13.1* HGB 11.1* 11.3* 11.2* HCT 33.9* 33.3* 32.8* PLATELET 276 271 223 Recent Labs 09/17/15 1131 09/17/15 0917 09/17/15 0330 09/16/15 2150 NA -- 137 137 138 K 5.6* Not Perf 5.7* 5.3* CL -- 100 101 100 CO2 -- 16* 20* 22 BUN -- 59* 52* 48* CREATININE -- 6.96* 6.94* 6.94* Recent Labs 09/17/15 0917 09/17/15 0330 09/16/15 2150 AST Not Perf 20 19 ALT 18 16 17 ALKPHOS 57 55 59 BILITOT 0.7 0.6 0.7 BILIDIR Not Perf 0.2 0.2 Recent Labs 09/17/15 0917 09/17/15 0330 09/16/15 2150 CALCIUM 8.6 8.3* 8.5 PHOS 6.9* 6.7* 6.2* Component Value Date/Time SPGRAVITYUA 1.015 05/22/2014 1016 PHUADIP 5.0 05/22/2014 1016 PROTEINUADIP >=500* 05/22/2014 1016 GLUCOSEU Negative 05/22/2014 1016 KETONESUA Negative 05/22/2014 1016 UROBILIUADIP Normal 05/22/2014 1016 BLOODUADIP Negative 05/22/2014 1016 NITRATEUA Negative 05/22/2014 1016 LEUKOESTERUA Negative 05/22/2014 1016 BILIRUBINUA Negative 05/22/2014 1016 Vanc (09/16) 24.6 Microbiology: 09/16: Blood--pending Radiology/Studies/Procedures: None this admission Assessment: Ethel Bolden is a 65 y.o. male with history of HCV, ESRD on HD, type 2 DM who presented for renal transplant from donor. Based on the information we have, the donor was bacteremic with Group C Strep prior to transplant. Fortunately, Group C Strep is a fairly sensitive organism and canbe treated by ceftriaxone, so we would recommend placing him on ceftriaxone monotherapy. Additionally, his vancomycin level is supratherapeutic and his creatinine clearance will be dramatically changing, so he will continue to have vancomycin in his system for some time. In terms of this history of tick bite, it is very difficult to say whether or not the donor was at risk for Lyme disease since we do not know the type of tick or if the bite occurred in an endemic region. There is also no good data on the risk of Lyme transmission in the setting of organ donation. Fortunately, ceftriaxone will also treat Lyme disease, so we will be taking care of that potential infection as well. Recommendations: - Stop vancomycin and ceftazidime - Start ceftriaxone 2g IV q24hr X Recommendations discussed with the primary treating team. ID consult service will continue to follow patient. Page us at [phone] with any further questions or concerns. Recommendations are above and were discussed with the primary treating team. ID will sign off. Please page if further consultation required. This patient was seen and discussed with ID attending Dr. Harjinder BECK MD Fellow, Infectious Disease 09/17/2015 Pager [phone] I interviewed, examined and discussed the patient with Dr. Beck, with whose findings and recommendations I concur. I also reviewed all pertinent labs and radiology. Would treat the GCS with ceftriaxone as per Dr. Beck, with duration in part driven by final results of final cultures from donor. Brian Grande MD * Op Note - Larry Larkin MD - 09/17/2015 11:03 AM EDT [facility] [place] Operative Note Patient Name: Ethel Bolden : [id number] MR#: [id number] Case Date: 09/16/2015 Surgeon: Surgeon(s) and Role: * Larry Larkin MD - Primary * Marcus Saravia MD Preoperative diagnosis: Kidney transplant. UNOS #[id number] Postoperative diagnosis: Kidney transplant. UNOS #[id number] Procedure(s): @KIDNEY TRANSPLANT, WITHOUT RECIPIENT NEPHRECTOMY @PREPARATION CADAVERIC RENAL ALLOGRAFT Anesthesia: General Estimated Blood Loss: 150 mL Specimens removed during surgery: None Drains: Drain/Device Site 09/16/15 1406 abdomen collapsible closed device (Active) Insertion Site clean and dry 09/17/2015 8:00 AM Drain Device Number LEEANNA 09/16/2015 8:00 PM Drainage Characteristics/Odor serosanguineous 09/16/2015 8:00 PM Drainage Amount moderate 09/16/2015 8:00 PM Therapy Setting (Negative Pressure Wound Therapy) continuous therapy 09/16/2015 8:00 PM Pressure Setting (Negative Pressure Wound Therapy) other (see comments) 09/16/2015 8:00 PM General Output (mL) 12 09/17/2015 10:00 AM Surgical Closure: Primary Closure - closure of ALL tissue levels during the original surgery regardless of wires, wickes, drains, or other devices extruding through the incision Disposition: awakened from anesthesia, extubated and taken to the recovery room in a stable condition, having suffered no apparent untoward event. Condition: doing well without problems (Please see the Surgical Encounter Summary for any Implant and Specimen details pertinent to this patient.) Indications for Procedure: Ethel Bolden is a 65 y.o. with end-stage renal disease. The patientwas evaluated for renal transplantation by the Multidisciplinary Renal Transplant Team and felt to be an appropriate candidate. We discussed the risks, benefits, and conduct of the operation including bleeding, infection, damage to adjacent structures, lymphocoele, urtereral leak, stroke, MT, and . 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 This was a [facility] high risk donor. Procedure and Findings: Following proper informed consent and administration of IV antibiotics the patient was taken to the Operating Room. Prior to beginning the procedure we compared the ABO and crossmatch for the organ and Ethel Bolden. These were determined to be compatible by two licensedprofessionals and this was documented on the transplant worksheet Preparation of the allograft: Prior to beginning the operation, the allograft was prepared by removing the perinepheric fat. The donor's renal arteries and veins were disected free. A renal arterial anastomosis was not required based on the arterial anatomy of the allograft. Transplant procedure: The patient was placed supine on the hospital table and general oral endotracheal anesthesia was induced without difficulty. An oral gastric tube was then placed. The abdomen was sterilely prepped and draped in the standard surgical fashion. The operation was begun with a curvilinear incision in the left lower quadrant. This was deepened using Bovie electrocautery. We incised the external oblique fascia approximately 2 cm medially to the anterior iliac spine. This was carried down sharply using Bovie electrocautery until the posterior fascia was identified. The posteriorfascia was then divided approximately 1 cm lateral to the rectus muscle. The retroperitoneal space was then entered and the fascia was widely divided proximally and distally. The abdominal contents were reflected medially and the iliac artery and vein were identified and followed medially. The epigastric artery and vein were doubly ligated with 2-0 silk ties and divided sharply. Fixed Bookwalter retractor was then placed for exposure. The external iliac artery and vein were then dissected free from the surrounding lymphatics. All the lymphatics were carefully ligated with 2-0 silk ligatures. The vessels were then encircled with a silastic loop. Because the patient was on dialysis we did notgiven additional systemic heparin. The iliac vein was clamped with a Lambert- Abbey clamp. The iliac vein was opened and an end-to-side anastomosis was constructed between the renal vein and the patient's external iliac vein. We then placed a Satinsky clamp on the patient's external iliac artery. An en d-to-side anastomosis was then constructed using 6-0 Prolene with loop magnification between the patient's renal artery and the external iliac artery. The clamps were then removed and the organ was reperfused. Several small bleeding points in the hilum were easily controlled with 5-0 and 6-0 Prolene. After the kidney was successfully reperfused the Bookwalter was repositioned to allow exposure ofthe patient's bladder. The Whaley catheter was infused with approximately 300 mL of sterile saline. The fat overlying the dome of the bladder was then dissected. Three 3-0 chromic sutures were placed in the dome of the bladder to triangulate and support the bladder. The bladder was then incised withBovie cautery. We dissected the mucosa free proximally and distally creating an exposure of approximately 2.5 to 3 cm. We then fashioned the ureter by dividing the longitudinal arteries between 4-0 silk ties. At this point the ureter was then spatulated and an end-to-side anastomosis was constructed between the donor ureter and the patient's bladder urothelium using running 5-0 PDS over a double J stent. The bladder muscle overlying the ureter was then reapproximated using 4-0 PDS suture. The wound was thoroughly irrigated and inspected for hemostasis. A 19 round margret drain was placed in theiliac fossa. Once hemostasis had been achieved we reapproximated the fascia in two layers using #1 Prolene suture. The subcutaneous tissues were irrigated and reapproximated using 3-0 Vicryl sutures.The skin was closed with alessandro. The patient was then taken to the Recovery Room in fairly good condition. There were not intraoperative complications. Infection Bundle used? N/A Attestation: Case Date: 09/16/2015 I was present and I participated during the entire procedure (does not need to include opening and closing). LARRY LARKIN MD 09/17/2015 * Initial Assessments - Velvet Andrei M, PT - 09/17/2015 9:58 AM EDT Physical Therapy Evaluation Patient profile: Ethel Bolden is a 65 y.o. male admitted on 09/16/2015 by Larry Angulo MD with PMH significant for DMII, HTN, HCV (with clearance of HCV on fibroscan) with hemodialysis dependent ESRD who presents today for donor kidney transplantation. He was initially evaluated for kidney transplantation on 07/17/15 and was activated on the recipient list on 09/07/15. Last dialysis was on Thursday. He still does produce urine. He has been off his Plavix since 09/05/15. 09/16/15 OR Procedure(s): @KIDNEY TRANSPLANT, WITHOUT RECIPIENT NEPHRECTOMY @PREPARATION CADAVERIC RENAL ALLOGRAFT PMH: Past Medical History Diagnosis Date ??? Type [...] NEPHRECTOMY performed by Larry Larkin MD at [facility] MAIN OR ??? Pro transplant, prep cadaver renal graft N/A 09/16/2015 @PREPARATION CADAVERIC RENAL ALLOGRAFT performed by Larry Larkin MD at [facility] MAIN OR Social History: Patient lives with spouse in [place], [place]. He reports he & not working so available to help prn. He reports living in a log cabin with master bedroom and BR on main level with 4 steps to enter. Baseline Mobility: Independent ambulater without any device, driving self to dialysis. Precautions/Special Considerations: Full code status Activity Orders: OOB to chair Staff communication/Mobility Recommendations: ?? Pt. to utilize rolling walker and supervision x 1 of staff for ambulation. ?? Please encourage up to chair for meal times as able. Subjective: ???Well, since I'm already in the chair, can I walk today??? Objective: Pt seen for evaluation today. Pain: using FIELD MERCHANDISER but no c/o pain. Vital Signs: Sp02: 94% walking vs 98% @ rest on 2 L O2 NC HR: 65 @ rest and 72 with walking BP: 105/64 (sitting EOB) Mental Status: alert, oriented to person, place, and time Skin and Soft Tissue: drain & incision L flank; A-line removed this morning from R wrist, peripheral IV L UE, whaley catheter. Bed Mobility: OOB with nursing this morning, noted HOB up and he mentioned his bed @ home does raise up. Reviewed leaning to his side using UE's to lean down or push up and log rolling. He was sitting EOB and wanting to eat breakfast meal before getting into bed. Transfers: Sit >< Stand: stood from recliner (I) using arms to push on armrests, able to lower down ontoEOB to sit down on his own, supervision for line management. Bed >< chair: held walker for balance, help only for lines. Gait: Distance: First walk post-op able to walk length of ISCU 100' x 2 holding front wheeled walker and stand-by assist/ assist for line management (IV pole, whaley, oxygen). Slow steady pace and not relying on walker too much, HR stable & SpO2 stable on 2 L O2 NC. Balance: Sitting: EOB balance good and wanting to sit to eat breakfast FY=472/64 and RN notified. Standing: he preferred to hold walker in case during first walk. Informed Consent: The patient understands and agrees to the PT treatment plan and goals. Education: patient have been educated on Role of therapy and verbalizes understanding. Patient status, treatment, and mobility recommendations discussed with nursing. Assessment: Ethel Gomez Keniamarialuisaneri presents to POD #1 s/p kidney transplant. Patient OOB to chair with nursing first thing this morning. Pt demonstrated ability to stand and walk holding walker length of ISCU unit with help mainly for lines. The pt would benefit from skilled therapy services to maximizefunctional independence while in the hospital and to address limitations as noted above. Goals: To be achieved by 09-21-15. 1. Pt. to perform bed mobility on his own, HOB may be up as his bed @ home inclines. 2. Pt. to perform sit >< stand transfers (I). 3. Pt. to ambulate 3x/day at least 100 feet without need for assistive device (I), supervised. 4. Pt. to ambulate up/down 4 step/stairs safely to enter/exit home. Plan: Pt to be seen 1-2 more visits for therapy including Bed mobility, Gait and stairs. Patient agrees with plan as stated above. Discharge Recommendations: Based on the current findings noted during this evaluation, patient could benefit from Home withoutfurther Skilled Therapy when medically ready for hospital discharge. This recommendation is based on the patient's Potential to return to prior level of function and may change based on patient progress during this hospitalization. Equipment needs: Don't anticipate any needs; assess balance/gait further & TBD before d/c. Total time spent with patient: 40 minutes Evaluation Total timed interventions: 0 minutes ANDREI GILL PT 09/17/2015 Pager: [phone] Physical Therapy Rehabilitation Department * Plan of Care - Magaly Peralta RN - 09/17/2015 2:46 AM EDT Problem: General Plan of Care Goal: Plan of Care Review Outcome: Ongoing (Interventions Implemented as Appropriate) 09/17/15 0222 Plan of Care Review Plan of Care Outcome Status ongoing (interventions implemented as appropriate) Progress no change Coping/Psychosocial Response Interventions Plan of Care Reviewed with patient OUTCOME EVALUATION NOTE: OUTCOME SUMMARY: Slept well overnight. Pt stable throughout shift, alert and oriented X4. Afebrile. VSS. SB/NSR SBP >120. Maintaining adequate oxygenation on 2LNC. Pt c/o abdominal pain, managed well with dilaudidpca. Pt able to assist with turning and repositioning. BRENDA Goldberg 1L NS bolus ordered with minimal response; will continue to monitor closely. Left LEEANNA drain, moderate amount of serosanguinous fluid emptied. PLAN MOVING FORWARD: Continue to closely monitor urine output. Up out of bed to chair. INDIVIDUALIZED FALL PREVENTION: Assistance: one person assist with turning/repositioning Supervision: Hourly rounding, direct care, RN/POCKET MACHINE OPERATOR Surveillance: Telemetry and pulse oximetry CPG OUTCOME EVALUATION: Problem: Pain, Acute (Adult, Obstetrics) Goal: Identify Signs and Symptoms and Related Risk Factors Signs and symptoms and related risk factors are identified upon initiation of Human Response Clinical Practice Guideline (CPG) Outcome: Ongoing (Interventions Implemented as Appropriate) 09/17/15221 Pain, Acute Related Risk Factors (Acute Pain) surgery Signs and Symptoms (Acute Pain) verbalization of pain descriptors Goal: Acceptable Pain Control/Comfort Level Patient will demonstrate the desired outcomes. Outcome: Ongoing (Interventions Implemented as Appropriate) 09/17/15221 Pain, Acute (Adult, Obstetrics) Acceptable Pain Control/Comfort Level making progress toward outcome * Brief Op Note - Marcus Saravia MD - 09/16/2015 2:55 PM EDT Brief Operative Note Patient Name: Ethel Bolden : [id number] MR#: [id number] Case Date: 09/16/2015 Surgeon: Surgeon(s) and Role: * Larry Larkin MD - Primary * Marcus Saravia MD Preoperative diagnosis: Kidney transplant. UNOS #[id number] Postoperative diagnosis: Kidney transplant. UNOS #[id number] Procedure(s): @KIDNEY TRANSPLANT, WITHOUT RECIPIENT NEPHRECTOMY @PREPARATION CADAVERIC RENAL ALLOGRAFT Anesthesia: Anesthesia type not filed in the log. Findings: 1. One artery, one vein and one ureter on donor right kidney 2. Venous extension created from donor IVC 3. Anastomosis to left recipient iliac vein and artery Complications: none Fluids: 2.4 L crystalloid Estimated Blood Loss: 150 mL Drains: 19 Fr 4 channel Bard drain Disposition: awakened from anesthesia, extubated and taken to the recovery room in a stable condition, having suffered no apparent untoward event. Condition: doing well without problems (Please see the Surgical Encounter Summary for any Implant and Specimen details pertinent to this patient.) Infection Bundle used? N/A documented in this encounter Plan of Treatment Upcoming Encounters Date Type Department Care Team (Late st Contact Info) Description 04/15/2024 10:00 AM EDT Hospital Encounter [place] [address] Arrived Scheduled Referrals Name Type Priority Associated Diagnoses Order Schedule OPAT: Order / Recommendation for Post Discharge IV Antibiotic Management Outpatient Referral Routine Renal transplant recipient Ordered: 09/18/2015 documented as of this encounter Procedures Procedure Name Priority Date/Time Associated Diagnosis Comments BUSINESS ADMINISTRATION PROFESSOR SCAN 09/21/2015 12:00 AM EDT POCT GLUCOSE Routine 09/20/2015 11:23 AM EDT TACROLIMUS LEVEL Timed 09/20/2015 8:04 AM EDT POCT GLUCOSE Routine 09/20/2015 7:10 AM EDT HEMOGRAM Routine 09/20/2015 4:58 AM EDT DIFFERENTIAL, AUTOMATED Routine 09/20/2015 4:58 AM EDT CBC (WITH DIFF) Routine 09/20/2015 4:58 AM EDT PHOSPHORUS Routine 09/20/2015 4:58 AM EDT MAGNESIUM Routine 09/20/2015 4:58 AM EDT HEPATIC FUNCTION PANEL Routine 6 4:58 AM EDT BASIC METABOLIC PANEL Routine 09/20/2015 4:58 AM EDT POCT GLUCOSE Routine 09/19/2015 9:00 PM EDT POCT GLUCOSE Routine 09/19/2015 4:19 PM EDT IR TUNNELED CENTRAL VENOUS ACCESS NON-DIALYSIS Routine 09/19/2015 3:38 PM EDT POCT GLUCOSE Routine 09/19/2015 11:56 AM EDT POCT GLUCOSE Routine 09/19/2015 7:06 AM EDT HEMOGRAM Routine 09/19/2015 6:14 AM EDT DIFFERENTIAL, AUTOMATED Routine 09/19/2015 6:14 AM EDT CRYOGLOBULIN Routine 09/19/2015 6:14 AM EDT CBC (WITH DIFF) Routine 09/19/2015 6:14 AM EDT COMPLEMENT, TOTAL Routine 09/19/2015 6:1 4 AM EDT C3 COMPLEMENT Routine 09/19/2015 6:14 AM EDT C4 COMPLEMENT Routine 09/19/2015 6:14 AM EDT PHOSPHORUS Routine 09/19/2015 6:14 AM EDT MAGNESIUM Routine 09/19/2015 6:14 AM EDT HEPATIC FUNCTION PANEL Routine 6 6:14 AM EDT BASIC METABOLIC PANEL Routine 09/19/2015 6:14 AM EDT POCT GLUCOSE Routine 09/18/2015 8:45 PM EDT POCT GLUCOSE Routine 09/18/2015 3:48 PM EDT POCT GLUCOSE Routine 09/18/2015 12:10 PM EDT POCT GLUCOSE Routine 09/18/2015 7:58 AM EDT HEMOGRAM Routine 09/18/2015 2:31 AM EDT DIFFERENTIAL, AUTOMATED Routine 09/18/2015 2:31 AM EDT CBC (WITH DIFF) Routine 09/18/2015 2:31 AM EDT PHOSPHORUS Routine 09/18/2015 2:31 AM EDT MAGNESIUM Routine 09/18/2015 2:31 AM EDT HEPATIC FUNCTION PANEL Routine 6 2:31 AM EDT BASIC METABOLIC PANEL Routine 09/18/2015 2:31 AM EDT BASIC METABOLIC PANEL Timed 09/17/2015 9:55 PM EDT US RENAL TRANSPLANT LEFT Routine 09/17/2015 12:37 PM EDT HIV QUANT Routine 09/17/2015 11:31 AM EDT HBV QUANT Routine 09/17/2015 11:31 AM EDT HEPATITIS B DNA, QUANTITATIVE, PCR Routine 09/17/2015 11:31 AM EDT HEMOGRAM Routine 09/17/2015 11:31 AM EDT DIFFERENTIAL, AUTOMATED Routine 09/17/2015 11:31 AM EDT HIV-1 RNA, QUANTITATIVE, PCR Routine 09/17/2015 11:31 AM EDT CBC (WITH DIFF) Routine 09/17/2015 11:31 AM EDT POTASSIUM STAT 09/17/2015 11:31 AM EDT BLOOD CULTURE STAT 09/17/2015 10:36 AM EDT HEP C NS3 RESISTANCE, GENOTYPE 1 Routine 09/17/2015 10:17 AM EDT HEPATITIS C RNA, QUANTITATIVE, PCR Routine 09/17/2015 10:17 AM EDT BLOOD CULTURE STAT 09/17/2015 10:17 AM EDT HEMOGRAM Routine 09/17/2015 9:17 AM EDT DIFFERENTIAL, AUTOMATED Routine 09/17/2015 9:17 AM EDT CBC (WITH DIFF) Routine 09/17/2015 9:17 AM EDT PHOSPHORUS Routine 09/17/2015 9:17 AM EDT MAGNESIUM Routine 09/17/2015 9:17 AM EDT VANCOMYCIN, TROUGH Timed 09/17/2015 9: 17 AM EDT COMPREHENSIVE METABOLIC PANEL Routine 09/17/2015 9:17 AM EDT POCT GLUCOSE Routine 09/17/2015 8:58 AM EDT HEMOGRAM Routine 09/17/2015 3:30 AM EDT DIFFERENTIAL, AUTOMATED Routine 09/17/2015 3:30 AM EDT CBC (WITH DIFF) Routine 09/17/2015 3:30 AM EDT PHOSPHORUS Routine 09/17/2015 3:30 AM EDT MAGNESIUM Routine 09/17/2015 3:30 AM EDT COMPREHENSIVE METABOLIC PANEL Routine 09/17/2015 3:30 AM EDT HEMOGRAM Routine 09/16/2015 9:50 PM EDT DIFFERENTIAL, AUTOMATED Routine 09/16/2015 9:50 PM EDT CBC (WITH DIFF) Routine 09/16/2015 9:50 PM EDT PHOSPHORUS Routine 09/16/2015 9:50 PM EDT MAGNESIUM Routine 09/16/2015 9:50 PM EDT COMPREHENSIVE METABOLIC PANEL Routine 09/16/2015 9:50 PM EDT POCT GLUCOSE Routine 09/16/2015 5:36 PM EDT HEMOGRAM STAT 09/16/2015 3:29 PM EDT DIFFERENTIAL, AUTOMATED STAT 09/16/2015 3:29 PM EDT APTT STAT 09/16/2015 3:29 PM EDT PROTHROMBIN TIME STAT 09/16/2015 3:29 PM EDT CBC (WITH DIFF) STAT 09/16/2015 3:29 PM EDT MAGNESIUM STAT 09/16/2015 3:29 PM EDT COMPREHENSIVE METABOLIC PANEL STAT 09/16/2015 3:29 PM EDT POCT GLUCOSE Routine 09/16/2015 3:12 PM EDT BLOOD GAS ARTERIAL POC Routine 6 2:02 PM EDT ORGAN ACQUISITION RENAL, CADAVERIC 09/16/2015 11:41 AM EDT Kidney transplant. [facility] #[id number] @PREPARATION CADAVERIC RENAL ALLOGRAFT (WRVU 9.24) 09/16/2015 11:41 AM EDT Kidney transplant. [facility] #[id number] @KIDNEY TRANSPLANT, WITHOUT RECIPIENT NEPHRECTOMY (WRVU 39.88) 09/16/2015 11:41 AM EDT Kidney transplant. [facility] #[id number] CMV ANTIBODY, IGG Routine 09/16/2015 10: 28 AM EDT EKG 12-LEAD Routine 09/16/2015 10:10 AM EDT ESRD (end stage renal disease) HEMOGRAM STAT 09/16/2015 10:08 AM EDT DIFFERENTIAL, AUTOMATED STAT 09/16/2015 10:08 AM EDT ABO/RH TYPING STAT 09/16/2015 10:08 AM EDT APTT STAT 09/16/2015 10:08 AM EDT PROTHROMBIN TIME STAT 09/16/2015 10:0 8 AM EDT CBC (WITH DIFF) STAT 09/16/2015 10:08 AM EDT ANTIBODY SCREEN STAT 09/16/2015 10:08 AM EDT TYPE AND SCREEN ([facility]/CGP/MOSES) STAT 09/16/2015 10:08 AM EDT PHOSPHORUS STAT 09/16/2015 10:08 AM EDT MAGNESIUM STAT 09/16/2015 10:08 AM EDT COMPREHENSIVE METABOLIC PANEL STAT 09/16/2015 10:08 AM EDT documented in this encounter Results * SCAN DOC: BUSINESS ADMINISTRATION PROFESSOR (09/21/2015 12:00 AM EDT) Anatomical Region Laterality Modality Other Scanning Provider MEDIA MGR SCAN EXT O RDR/RSLT * POCT Glucose (09/20/2015 11:23 AM EDT) Glucose, POC 144 65 - 199 mg/dL [facility] Comment: Supplemental ranges: <140 mg/dL before meals <180 mg/dL all other times of the day Blood specimen (specimen) 09/20/2015 11:23 AM EDT 09/20/2015 11:23 AM EDT Larry Larkin MD POINT OF CARE TEST O RDERABLES Performing Organization Address [facility]/ZIP Co de Phone Number [facility] [place] [address] * Tacrolimus level (09/20/2015 8:04 AM EDT) Tacrolimus <3.0 ng/mL [facility] Comment:Trough therapeutic: 5-15 ng/mL Blood specimen (specimen) 09/20/2015 8:04 AM EDT 09/20/2015 10:58 AM EDT Narrative Resulting Agency Comment Spec In Lab Larry Larkin MD CHEMISTRY ORDERABLES Performing Organization Address City/[facility]/ZIP Co de Phone Number [facility] [place] [address] * POCT Glucose (09/20/2015 7:10 AM EDT) Pathologist [facility] Glucose, POC 123 65 - 199 mg/dL [facility] Comment: Supplemental ranges: <140 mg/dL before meals <180 mg/dL all other times of the day Blood specimen (specimen) 09/20/2015 7:10 AM EDT 09/20/2015 7:10 AM EDT Larry Larkin MD POINT OF CARE TEST O RDERABG [facility] [place] [address] * (ABNORMAL) Differential, Automated (09/20/2015 4:58 AM EDT) [facility] Neutrophil % 80.6 % [facility] Neutrophil Absolute 7.65(H) 1.50 - 6.30 x10(3)/mc L [facility] Lymph % 7.2 % [facility] Lymphocytes Abs 0.7(L) 1.0 - 3.6 x10(3)/mc L [facility] Monocyte % 11.9 % [facility] Monocyte Abs 1.1(H) 0.2 - 1.0 x10(3)/mc L [facility] Eos % 0.0 % [facility] Eosinophils Abs 0.0 0.0 - 0.5 x10(3)/ L [facility] Basophil % 0.0 % [facility] Baso Absolute 0.0 0.0 - 0.2 x10(3)/mc L [facility] Immature Gran % 0.30 % [facility] Comment: Immature granulocytes(IG's)percentage and absolute count will include metamyelocytes, myelocytes, and promyelocytes. Blood smears from CBCs yielding IG's will be scanned manually for concordance. If this scan disagrees with the automated IG or if promyelocytes are noted, a manual differential will be performed. Immature Gran Absolute 0.03 0.00 - 0.05 x10(3)/[facility] Blood specimen (specimen) 09/20/2015 4:58 AM EDT 09/20/2015 5:17 AM EDT Narrative Resulting Agency Comment Spec In Lab Larry Larkin MD HEMATOLOGY ORDERABLE S Performing Organization Address City/[facility]/ZIP Co de Phone Number [facility] [place] [address] * (ABNORMAL) Hemogram (09/20/2015 4:58 AM EDT) White Blood Cell 9.5 4.0 - 10.0 x10(3)/[facility] Red Blood Cell 2.95(L) 4.63 - 6.08 x10(6)/[facility] Hemoglobin 9.4(L) 13.7 - 17.5 gm/dL [facility] Hematocrit 27.5(L) 40.0 - 51.0 % [facility] Mean Cell Volume 93.2(H) 79.0 - 92.0 fL [facility] Mean Cell Hemoglobin 31.9 25.6 - 32.2 pg [facility] Mean Cell Hemoglobin Concentration 34.2 32.0 - 36.5 gm/dL [facility] Platelet 234 145 - 370 x10(3)/[facility] RDW Standard Deviation 50.1(H) 35.0 - 46.0 fL [facility] RDW coefficient of variation 14.6(H) 10.9 - 14.4 % [facility] Mean Platelet Volume 9.4 9.0 - 12.0 fL [facility] Blood specimen (specimen) 09/20/2015 4:58 AM EDT 09/20/2015 5:17 AM EDT Narrative Resulting Agency Comment Spec In Lab Larry Larkin MD HEMATOLOGY ORDERABLE S Performing Organization Address City/[facility]/ZIP Co de Phone Number [facility] [place] [address] * (ABNORMAL) Hepatic Function Panel (09/20/2015 4:58 AM EDT) Pathologist [facility] Protein, Total 6.0(L) 6.1 - 8.0 gm/dL [facility] Albumin 3.1(L) 3.2 - 5.2 gm/dL [facility] Aspartate Aminotransferase 19 0 - 39 unit/L [facility] Alanine Aminotransferase 17 0 - 55 unit/L [facility] Alkaline Phosphatase 43 40 - 120 unit/L [facility] Bilirubin, Total 0.5 0.2 - 1.3 mg/dL [facility] Bilirubin, Direct 0.1 0.0 - 0.3 mg/dL [facility] Blood specimen (specimen) 09/20/2015 4:58 AM EDT 09/20/2015 5:17 AM EDT Narrative Resulting Agency Comment Spec In Lab Larry Larkin MD CHEMISTRY ORDERABLES [facility] [place] [address] * Phosphorus (09/20/2015 4:58 AM EDT) [facility] Phosphorus 3.0 2.5 - 4.5 mg/dL [facility] Blood specimen (specimen) 09/20/2015 4:58 AM EDT 09/20/2015 5:17 AM EDT Narrative Resulting Agency Comment Spec In Lab Larry Larkin MD CHEMISTRY ORDERABLES [facility] [place] [address] * Magnesium (09/20/2015 4:58 AM EDT) [facility] Magnesium 0.89 0.69 - 1.07 mmol/L [facility] Blood specimen (specimen) 09/20/2015 4:58 AM EDT 09/20/2015 5:17 AM EDT Narrative Resulting Agency Comment Spec In Lab Larry Larkin MD CHEMISTRY ORDERABLES [facility] [place] [address] * (ABNORMAL) Basic Metabolic Panel (non-fasting) (09/20/2015 4:58 AM EDT) Glucose 130 65 - 199 mg/dL [facility] Comment:Diabetes: >=200 mg/d L plus symptoms Blood Urea Nitrogen 60(H) 10 - 20 mg/dL [facility] Creatinine 2.30(H) 0.80 - 1.50 mg/dL [facility] Comment: result rechecked-monty Please note that the pediatric reference intervals supplied above were not validated at [facility]. Results from pediatric patients should be interpreted in conjunction to the patient's age, height and muscle mass. Sodium 144 135 - 145 mmol/L [facility] Potassium 5.1(H) 3.5 - 5.0 mmol/L [facility] Comment: Please note: ??Patients with WBC >100,000 may have falsely elevated Potassium levels. ??For accurate Potassium quantification in these patients send serum separator tube (gold top) for subsequent determinations. ??Contact the Clinical Chemistry Laboratory if there are any questions. Chloride 108(H) 98 - 107 mmol/L [facility] Carbon Dioxide 23 22 - 31 mmol/L [facility] Anion Gap 13 5 - 15 mmol/L [facility] Calcium 9.0 8.5 - 10.5 mg/dL [facility] Est Glomerular Filtration Rate 28(L) >=60 [facility] Comment: This [...] the following links into your internet browser. [email or web address] Blood specimen (specimen) 09/20/2015 4:58 AM EDT 09/20/2015 5:17 AM EDT Narrative Resulting Agency Comment Spec In Lab Larry Larkin MD CHEMISTRY ORDERABLES Performing Organization Address [facility] Co de Phone Number [facility] [place] [address] * POCT Glucose (09/19/2015 9:00 PM EDT) Glucose, POC 183 65 - 199 mg/dL [facility] Comment: Supplemental ranges: <140 mg/dL before meals <180 mg/dL all other times of the day Blood specimen (specimen) 09/19/2015 9:00 PM EDT 09/19/2015 9:00 PM EDT Larry Larkin MD POINT OF CARE TEST O RDERABLES Performing Organization Address [facility] de Phone Number [facility] [place] [address] * POCT Glucose (09/19/2015 4:19 PM EDT) Glucose, POC 151 65 - 199 mg/dL [facility] Comment: Supplemental ranges: <140 mg/dL before meals <180 mg/dL all other times of the day Blood specimen (specimen) 09/19/2015 4:19 PM EDT 09/19/2015 4:19 PM EDT Larry Larkin MD POINT OF CARE TEST O RDERABG Performing Organization Address [facility] Co de Phone Number [facility] [place] [address] * IR central venous access (09/19/2015 3:38 PM EDT) Anatomical Region Laterality Modality Chest, Vascular X-Ray Angiograph y Narrative 09/20/2015 7:50 AM EDT VIR PROCEDURE NOTE: ?? Procedure: ??Tunneled RIGHT IJ single lumen catheter Indication: ??65 yo M with DM, HTN, HCV, ESRD s/p renal transplant on 09/16/2015 from donor who had Group C Strep bacteremia prior to organ procurement. Tunneled single lumen CVC requested for IV antibiotics. Technique: After discussing risks (including infection, hemorrhage, occlusion), and benefits, patient consented to the procedure. A moment of truth was performed and the patient and procedure correctly identified. ?? Due to the painful nature of the procedure, split doses of fentanyl and versed were administered by the IR nurse during continuous monitoring of pulse, blood pressure and oxygen saturation. ?? After maximal sterile barrier technique preparation of the RIGHT neck and upper chest, ultrasound was used to localize the RIGHT internal jugular vein. ??1% lidocaine SQ was administered for anesthesia, and a 21 ga needle was advanced under ultrasound guidance into the IJ and a 0.018 inch wire was advanced into the SVC. A 5 Fr introducer sheath was placed and the wire exchanged for a 0.035 inch wire. ??Lidocaine was then infiltrated in a caudal-lateral direction, and incision below the clavicle made with an 11 blade. ??A tunneler was then used to bring the single lumen 8 Fr catheter through the tunnel to the venotomy site. ??Venotomy was dilated to accommodate the 9 Fr peel-away sheath, and during breath-hold, the catheter advanced. ??Sheath was removed, and catheter secured to the skin. ?? All ports flushed and aspirated well. ??Patient tolerated the procedure well. ?? Complications: ??There were no immediate complications. Contrast: ??No contrast administered. Impression: Placement tunneled right IJ 8Fr single lumen catheter, tip in SVC. Recommendation: Catheter ready for use. Procedure performed by: ??Kyle Huizar APRN Attending: ?Radha was present for procedure. Larry Larkin MD IMG IR ORDERABLES * POCT Glucose (09/19/2015 11:56 AM EDT) Glucose, POC 122 65 - 199 mg/dL [facility] Comment: Supplemental ranges: <140 mg/dL before meals <180 mg/dL all other times of the day Blood specimen (specimen) 09/19/2015 11:56 AM EDT 09/19/2015 11:56 AM EDT Larry Larkin MD POINT OF CARE TEST O RDERABG Performing Organization Address [facility] Co de Phone Number [facility] [place] [address] * POCT Glucose (09/19/2015 7:06 AM EDT) Pathologist [facility] Glucose, POC 169 65 - 199 mg/dL [facility] Comment: Supplemental ranges: <140 mg/dL before meals <180 mg/dL all other times of the day Blood specimen (specimen) 09/19/2015 7:06 AM EDT 09/19/2015 7:06 AM EDT Larry Larkin MD POINT OF CARE TEST O DENNYSERABG Performing Organization Address [facility] Co de Phone Number [facility] [place] [address] * (ABNORMAL) Differential, Automated (09/19/2015 6:14 AM EDT) [facility] Neutrophil % 87.3 % [facility] Neutrophil Absolute 10.11(H) 1.50 - 6.30 x10(3)/mc L [facility] Lymph % 3.0 % [facility] Lymphocytes Abs 0.4(L) 1.0 - 3.6 x10(3)/mc L [facility] Monocyte % 9.5 % [facility] Monocyte Abs 1.1(H) 0.2 - 1.0 x10(3)/mc L [facility] Eos % 0.0 % [facility] Eosinophils Abs 0.0 0.0 - 0.5 x10(3)/mc L [facility] Basophil % 0.0 % [facility] Baso Absolute 0.0 0.0 - 0.2 x10(3)/mc L [facility] Immature Gran % 0.20 % [facility] Comment: Immature granulocytes(IG's)percentage and absolute count will include metamyelocytes, myelocytes, and promyelocytes. Blood smears from CBCs yielding IG's will be scanned manually for concordance. If this scan disagrees with the automated IG or if promyelocytes are noted, a manual differential will be performed. Immature Gran Absolute 0.02 0.00 - 0.05 x10(3)/mc L [facility] Blood specimen (specimen) 09/19/2015 6:14 AM EDT 09/19/2015 6:23 AM EDT Narrative Resulting Agency Comment Spec In Lab Larry Larkin MD HEMATOLOGY ORDERABLE S [facility] [place] [address] * (ABNORMAL) Hemogram (09/19/2015 6:14 AM EDT) White Blood Cell 11.6(H) 4.0 - 10.0 x10(3)/ L [facility] Red Blood Cell 2.92(L) 4.63 - 6.08 x10(6)/mc L [facility] Hemoglobin 9.1(L) 13.7 - 17.5 gm/dL [facility] Hematocrit 27.1(L) 40.0 - 51.0 % [facility] Mean Cell Volume 92.8(H) 79.0 - 92.0 fL [facility] Mean Cell Hemoglobin 31.2 25.6 - 32.2 pg [facility] Mean Cell Hemoglobin Concentration 33.6 32.0 - 36.5 gm/dL [facility] Platelet 206 145 - 370 x10(3)/mc L [facility] RDW Standard Deviation 48.3(H) 35.0 - 46.0 fL [facility] RDW coefficient of variation 14.2 10.9 - 14.4 % [facility] Mean Platelet Volume 9.3 9.0 - 12.0 fL [facility] Blood specimen (specimen) 09/19/2015 6:14 AM EDT 09/19/2015 6:23 AM EDT Narrative Resulting Agency Comment Spec In Lab Larry Larkin MD HEMATOLOGY ORDERABLE S Performing Organization Address [facility] de Phone Number [facility] [place] [address] * Cryoglobulin (09/19/2015 6:14 AM EDT) Cryoglobulin See Note [facility] Comment: Cryoglobulins negative at 24 and 72 hours. This test was developed and its performance characteristics determined by [facility]. It has not been cleared or approved by the FDA. The laboratory is regulated under CLIA as qualified to perform high-complexity testing. This test is used for clinical purposes. It should not be regarded as investigational or for research. Blood specimen (specimen) 09/19/2015 6:14 AM EDT 09/19/2015 6:24 AM EDT Narrative Resulting Agency Comment Spec In Lab Larry Larkin MD CHEMISTRY ORDERABLES Performing Organization Address [facility] de Phone Number [facility] [place] [address] * (ABNORMAL) Hepatic Function Panel (09/19/2015 6:14 AM EDT) Protein, Total 6.1 6.1 - 8.0 gm/dL [facility] Albumin 3.1(L) 3.2 - 5.2 gm/dL [facility] Aspartate Aminotransferase 20 0 - 39 unit/L [facility] Alanine Aminotransferase 13 0 - 55 unit/L [facility] Alkaline Phosphatase 43 40 - 120 unit/L [facility] Bilirubin, Total 0.4 0.2 - 1.3 mg/dL [facility] Bilirubin, Direct 0.1 0.0 - 0.3 mg/dL [facility] Blood specimen (specimen) 09/19/2015 6:14 AM EDT 09/19/2015 6:23 AM EDT Narrative Resulting Agency Comment Spec In Lab Larry Larkin MD CHEMISTRY ORDERABLES Performing Organization Address City/[facility]/ZIP Co de Phone Number [facility] [place] [address] * Phosphorus (09/19/2015 6:14 AM EDT) Phosphorus 3.9 2.5 - 4.5 mg/dL [facility] Blood specimen (specimen) 09/19/2015 6:14 AM EDT 09/19/2015 6:23 AM EDT Narrative Resulting Agency Comment Spec In Lab Larry Larkin MD CHEMISTRY ORDERABLES Performing Organization Address [facility] Co de Phone Number [facility] [place] [address] * Magnesium (09/19/2015 6:14 AM EDT) Magnesium 0.85 0.69 - 1.07 mmol/L [facility] Blood specimen (specimen) 09/19/2015 6:14 AM EDT 09/19/2015 6:23 AM EDT Narrative Resulting Agency Comment Spec In Lab Larry Larkin MD CHEMISTRY ORDERABLES Performing Organization Address [facility] Co de Phone Number [facility] [place] [address] * (ABNORMAL) Basic Metabolic Panel (non-fasting) (09/19/2015 6:14 AM EDT) Glucose 138 65 - 199 mg/dL [facility] Comment:Diabetes: >=200 mg/d L plus symptoms Blood Urea Nitrogen 64(H) 10 - 20 mg/dL [facility] Creatinine 3.25(H) 0.80 - 1.50 mg/dL [facility] Comment: result [id number] Please note that the pediatric reference intervals supplied above were not validated at [facility]. Results from pediatric patients should be interpreted in conjunction to the patient's age, height and muscle mass. Sodium 142 135 - 145 mmol/L [facility] Potassium 4.6 3.5 - 5.0 mmol/L [facility] Comment: Please note: ??Patients with WBC >100,000 may have falsely elevated Potassium levels. ??For accurate Potassium quantification in these patients send serum separator tube (gold top) for subsequent determinations. ??Contact the Clinical Chemistry Laboratory if there are any questions. Chloride 108(H) 98 - 107 mmol/L [facility] Carbon Dioxide 21(L) 22 - 31 mmol/L [facility] Anion Gap 13 5 - 15 mmol/L [facility] Calcium 8.8 8.5 - 10.5 mg/dL [facility] Est Glomerular Filtration Rate 19(L) >=60 [facility] Comment: This [...] the following links into your internet browser. [email or web address] Blood specimen (specimen) 09/19/2015 6:14 AM EDT 09/19/2015 6:23 AM EDT Narrative Resulting Agency Comment Spec In Lab Larry Larkin MD CHEMISTRY ORDERABLES [facility] [place] [address] * (ABNORMAL) Complement, Total (09/19/2015 6:14 AM EDT) Complement, Total 22(L) 30 - 75 unit/mL [facility] Comment: Test Performed by: [facility] [address] [place] [address] [place] Mechanic: Rosetta Conway, Ph.D. Blood specimen (specimen) 09/19/2015 6:14 AM EDT 09/19/2015 9:09 AM EDT Narrative Resulting Agency Comment Spec In Lab Larry Larkin MD CHEMISTRY ORDERABLES Performing Organization Address City/[facility]/ZIP Co de Phone Number [facility] [place] [address] * C4 Complement (09/19/2015 6:14 AM EDT) [facility] Complement C4 29 10 - 40 mg/dL [facility] Blood specimen (specimen) 09/19/2015 6:14 AM EDT 09/19/2015 6:23 AM EDT Narrative Resulting Agency Comment Spec In Lab Larry Larkin MD CHEMISTRY ORDERABLES Performing Organization Address City/[facility]/ZIP Co de Phone Number [facility] [place] [address] * C3 Complement (09/19/2015 6:14 AM EDT) [facility] Complement C3 100 90 - 180 mg/dL [facility] Blood specimen (specimen) 09/19/2015 6:14 AM EDT 09/19/2015 6:23 AM EDT Narrative Resulting Agency Comment Spec In Lab Larry Larkin MD CHEMISTRY ORDERABLES Performing Organization Address City/[facility]/ZIP Co de Phone Number [facility] [place] [address] * POCT Glucose (09/18/2015 8:45 PM EDT) [facility] Glucose, POC 186 65 - 199 mg/dL [facility] Comment: Supplemental ranges: <140 mg/dL before meals <180 mg/dL all other times of the day Blood specimen (specimen) 09/18/2015 8:45 PM EDT 09/18/2015 8:45 PM EDT Larry Larkin MD POINT OF CARE TEST O TED Performing Organization Address City/[facility]/ZIP Co de Phone Number [facility] [place] [address] * POCT Glucose (09/18/2015 3:48 PM EDT) Glucose, POC 173 65 - 199 mg/dL [facility] Comment: Supplemental ranges: <140 mg/dL before meals <180 mg/dL all other times of the day Blood specimen (specimen) 09/18/2015 3:48 PM EDT 09/18/2015 3:48 PM EDT Larry Larkin MD POINT OF CARE TEST O TED Performing Organization Address [facility] Co de Phone Number [facility] [place] [address] * POCT Glucose (09/18/2015 12:10 PM EDT) Glucose, POC 186 65 - 199 mg/dL [facility] Comment: Supplemental ranges: <140 mg/dL before meals <180 mg/dL all other times of the day Blood specimen (specimen) 09/18/2015 12:10 PM EDT 09/18/2015 12:10 PM EDT Larry Larkin MD POINT OF CARE TEST Mario JEAN Performing Organization Address City/[facility]/ZIP Co de Phone Number [facility] [place] [address] * POCT Glucose (09/18/2015 7:58 AM EDT) Glucose, POC 133 65 - 199 mg/dL [facility] Comment: Supplemental ranges: <140 mg/dL before meals <180 mg/dL all other times of the day Blood specimen (specimen) 09/18/2015 7:58 AM EDT 09/18/2015 7:58 AM EDT Larry Larkin MD POINT OF CARE TEST O RDERABLES [facility] [place] [address] * (ABNORMAL) Differential, Automated (09/18/2015 2:31 AM EDT) Neutrophil % 92.1 % [facility] Neutrophil Absolute 13.35(H) 1.50 - 6.30 x10(3)/mc L [facility] Lymph % 4.5 % [facility] Lymphocytes Abs 0.6(L) 1.0 - 3.6 x10(3)/mc L [facility] Monocyte % 3.0 % [facility] Monocyte Abs 0.4 0.2 - 1.0 x10(3)/mc L [facility] Eos % 0.0 % [facility] Eosinophils Abs 0.0 0.0 - 0.5 x10(3)/mc L [facility] Basophil % 0.1 % [facility] Baso Absolute 0.0 0.0 - 0.2 x10(3)/mc L [facility] Immature Gran % 0.30 % [facility] Comment: Immature granulocytes(IG's)percentage and absolute count will include metamyelocytes, myelocytes, and promyelocytes. Blood smears from CBCs yielding IG's will be scanned manually for concordance. If this scan disagrees with the automated IG or if promyelocytes are noted, a manual differential will be performed. Immature Gran Absolute 0.04 0.00 - 0.05 x10(3)/mc L [facility] Blood specimen (specimen) 09/18/2015 2:31 AM EDT 09/18/2015 2:50 AM EDT Narrative Resulting Agency Comment Spec In Lab Larry Larkin MD HEMATOLOGY ORDERABLE S [facility] [place] [address] * (ABNORMAL) Hemogram (09/18/2015 2:31 AM EDT) White Blood Cell 14.5(H) 4.0 - 10.0 x10(3)/mc L [facility] Red Blood Cell 3.13(L) 4.63 - 6.08 x10(6)/mc L [facility] Hemoglobin 9.7(L) 13.7 - 17.5 gm/dL [facility] Hematocrit 29.3(L) 40.0 - 51.0 % [facility] Mean Cell Volume 93.6(H) 79.0 - 92.0 fL [facility] Mean Cell Hemoglobin 31.0 25.6 - 32.2 pg [facility] Mean Cell Hemoglobin Concentration 33.1 32.0 - 36.5 gm/dL [facility] Platelet 233 145 - 370 x10(3)/mc L [facility] RDW Standard Deviation 48.8(H) 35.0 - 46.0 fL [facility] RDW coefficient of variation 14.3 10.9 - 14.4 % [facility] Mean Platelet Volume 9.3 9.0 - 12.0 fL [facility] Blood specimen (specimen) 09/18/2015 2:31 AM EDT 09/18/2015 2:50 AM EDT Narrative Resulting Agency Comment Spec In Lab Larry Larkin MD HEMATOLOGY ORDERABLE S [facility] [place] [address] * (ABNORMAL) Hepatic Function Panel (09/18/2015 2:31 AM EDT) Protein, Total 6.1 6.1 - 8.0 gm/dL [facility] Albumin 3.1(L) 3.2 - 5.2 gm/dL [facility] Aspartate Aminotransferase 21 0 - 39 unit/L [facility] Alanine Aminotransferase 14 0 - 55 unit/L [facility] Alkaline Phosphatase 49 40 - 120 unit/L [facility] Bilirubin, Total 0.4 0.2 - 1.3 mg/dL [facility] Bilirubin, Direct 0.1 0.0 - 0.3 mg/dL [facility] Blood specimen (specimen) 09/18/2015 2:31 AM EDT 09/18/2015 2:50 AM EDT Narrative Resulting Agency Comment Spec In Lab Larry Larkin MD CHEMISTRY ORDERABLES Performing Organization Address City/[facility]/ZIP Co de Phone Number [facility] [place] [address] * (ABNORMAL) Phosphorus (09/18/2015 2:31 AM EDT) Phosphorus 5.5(H) 2.5 - 4.5 mg/dL [facility] Blood specimen (specimen) 09/18/2015 2:31 AM EDT 09/18/2015 2:50 AM EDT Narrative Resulting Agency Comment Spec In Lab Larry Larkin MD CHEMISTRY ORDERABLES Performing Organization Address City/[facility]/ZIP Co de Phone Number [facility] [place] [address] * Magnesium (09/18/2015 2:31 AM EDT) Magnesium 0.77 0.69 - 1.07 mmol/L [facility] Blood specimen (specimen) 09/18/2015 2:31 AM EDT 09/18/2015 2:50 AM EDT Narrative Resulting Agency Comment Spec In Lab Larry Larkin MD CHEMISTRY ORDERABLES [facility] [place] [address] * (ABNORMAL) Basic Metabolic Panel (non-fasting) (09/18/2015 2:31 AM EDT) Glucose 168 65 - 199 mg/dL [facility] Comment:Diabetes: >=200 mg/d L plus symptoms Blood Urea Nitrogen 69(H) 10 - 20 mg/dL [facility] Creatinine 6.26(H) 0.80 - 1.50 mg/dL [facility] Comment: Please note that the pediatric reference intervals supplied above were not validated at [facility]. Results from pediatric patients should be interpreted in conjunction to the patient's age, height and muscle mass. Sodium 137 135 - 145 mmol/L [facility] Potassium 5.2(H) 3.5 - 5.0 mmol/L [facility] Est Glomerular Filtration Rate 9(L) >=60 [facility] Comment: This [...] the following links into your internet browser. [email or web address] Blood specimen (specimen) 09/18/2015 2:31 AM EDT 09/18/2015 2:50 AM EDT Narrative Resulting Agency Comment Spec In Lab Larry Larkin MD CHEMISTRY ORDERABLES [facility] [place] [address] * (ABNORMAL) Basic Metabolic Panel (non-fasting) (09/17/2015 9:55 PM EDT) Glucose 190 65 - 199 mg/dL [facility] Comment:Diabetes: >=200 mg/d L plus symptoms Blood Urea Nitrogen 67(H) 10 - 20 mg/dL [facility] Creatinine 6.73(H) 0.80 - 1.50 mg/dL [facility] Comment: Please note that the pediatric reference intervals supplied above were not validated at [facility]. Results from pediatric patients should be interpreted in conjunction to the patient's age, height and muscle mass. Sodium 137 135 - 145 mmol/L [facility] Potassium 5.0 3.5 - 5.0 mmol/L [facility] Comment: Please note: ??Patients with WBC >100,000 may have falsely elevated Potassium levels. ??For accurate Potassium quantification in these patients send serum separator tube (gold top) for subsequent determinations. ??Contact the Clinical Chemistry Laboratory if there are any questions. Chloride 101 98 - 107 mmol/L [facility] Carbon Dioxide 19(L) 22 - 31 mmol/L [facility] Anion Gap 17(H) 5 - 15 mmol/L [facility] Calcium 8.5 8.5 - 10.5 mg/dL [facility] Est Glomerular Filtration Rate 8(L) >=60 [facility] Comment: This [...] the following links into your internet browser. [email or web address] Blood specimen (specimen) 09/17/2015 9:55 PM EDT 09/17/2015 9:59 PM EDT Narrative Resulting Agency Comment Spec In Lab Larry Larkin MD CHEMISTRY ORDERABLES [facility] [place] [address] * Renal Transplant Left (09/17/2015 12:37 PM EDT) Anatomical Region Laterality Modality Abdomen Left Ultrasound 09/17/2015 1:09 PM EDT Narrative 09/17/2015 1:39 PM EDT Transplant ? (Signed Final 09/17/2015 01:38 pm) Patient Info ID #: ? [id number] ? : [birth year] (65 yrs) Name: ? ETHEL BOLDEN ? Visit Date:09/17/2015 01:09 pm Performed By Performed By: ? Jessee Espinal RDMS Attending: ?Preeti Holloway MD Associate: ?Victor Manuel Phillips MD Referred By: ?LARRY LARKIN MD Service(s) Provided ??URTPL - Ultrasound Renal Transplant - Left - [id number] Indications ??POD#1 s/p renal transplant on Left; donor, ??still with elevated creatinine, phos. Eval for RIs, ??patency of anastomosis Renal Allograft Size (cm) ? L: 10.6 Cortical Thickness: ? Normal Corticomedullary Differention: ??Normal Echogenicity: ? Normal Perinephric Fluid/Collections: ??No collection identified Renal Transplant Duplex ? PSV ? EDV ? RI ??Waveform ? (cm/s) ??(cm/s) Arcuate Artery ? 6.0 ?3.21 ?0.84 ??Patent Upper Pole: Arcuate Artery ?28.7 ?3.33 ?0.88 ??Patent Mid Allograft: Arcuate Artery ?24.3 ?4.44 ?0.82 ??Patent Lower Pole: Main Renal Artery ? 79.8 ?14.1 ?0.82 ??Patent At Anastomosis: Main Renal Artery ?109.0 ?14.5 ?0.87 ??Patent Proximal: Main Renal Artery ?133.0 ?12.2 ?0.91 ??Patent Mid: Main Renal Artery ?106.0 ?9.93 ?0.91 ??Patent Distal: Main Renal Artery ? 60.2 ?7.75 ?0.87 ??Patent At [place]: Main Renal Vein ? Patent Proximal: Main Renal Vein ? Patent Mid: Main Renal Vein ? Patent Distal: Interpretation 1. Resistive indices are elevated, possibly representing ATN in this recently transplanted kidney. 2. No compressive extrarenal mass or hydronephrosis. 3. No evident thrombosis or stenosis in the renal artery or vein. ? Preeti Holloway MD Electronically Signed Final Report ?? 09/17/2015 01:38 pm Procedure Note Preeti Holloway MD - 09/17/2015 Transplant (Signed Final 09/17/2015 01:38pm) Patient Info ID #: [id number] : [birth year] (65 yrs) Name: ETHEL BOLDEN Visit Date:09/17/2015 01:09 pm Performed By Performed By: Jessee Espinal RDMS Attending: Preeti Holloway MD Associate: Victor Manuel Phillips MD Referred By: LARRY LARKIN MD Service(s) Provided URTPL - Ultrasound Renal Transplant - Left - [id number] Indications POD#1 s/p renal transplant on Left; donor, still with elevated creatinine, phos. Eval for RIs, patency of anastomosis Renal Allograft Size (cm) L: 10.6 Cortical Thickness: Normal Corticomedullary Differention: Normal Echogenicity: Normal Perinephric Fluid/Collections: No collection identified Renal Transplant Duplex PSV EDV RI Waveform (cm/s) (cm/s) Arcuate Artery 6.0 3.21 0.84 Patent Upper Pole: Arcuate Artery 28.7 3.33 0.88 Patent Mid Allograft: Arcuate Artery 24.3 4.44 0.82 Patent Lower Pole: Main Renal Artery 79.8 14.1 0.82 Patent At Anastomosis: Main Renal Artery 109.0 14.5 0.87 Patent Proximal: Main Renal Artery 133.0 12.2 0.91 Patent Mid: Main Renal Artery 106.0 9.93 0.91 Patent Distal: Main Renal Artery 60.2 7.75 0.87 Patent At [place]: Main Renal Vein Patent Proximal: Main Renal Vein Patent Mid: Main Renal Vein Patent Distal: Interpretation 1. Resistive indices are elevated, possibly representing ATN in this recently transplanted kidney. 2. No compressive extrarenal mass or hydronephrosis. 3. No evident thrombosis or stenosis in the renal artery or vein. Preeti Holloway MD Electronically Signed Final Report 09/17/2015 01:38 pm Larry Larikn MD IM US GEN ORDERABLE S * (ABNORMAL) Differential, Automated (09/17/2015 11:31 AM EDT) Neutrophil % 88.3 % [facility] Neutrophil Absolute 14.45(H) 1.50 - 6.30 x10(3)/ L [facility] Lymph % 3.1 % [facility] Lymphocytes Abs 0.5(L) 1.0 - 3.6 x10(3)/[facility] Monocyte % 8.3 % [facility] Monocyte Abs 1.4(H) 0.2 - 1.0 x10(3)/[facility] Eos % 0.0 % [facility] Eosinophils Abs 0.0 0.0 - 0.5 x10(3)/[facility] Basophil % 0.1 % [facility] Baso Absolute 0.0 0.0 - 0.2 x10(3)/[facility] Immature Gran % 0.20 % [facility] Comment: Immature granulocytes(IG's)percentage and absolute count will include metamyelocytes, myelocytes, and promyelocytes. Blood smears from CBCs yielding IG's will be scanned manually for concordance. If this scan disagrees with the automated IG or if promyelocytes are noted, a manual differential will be performed. Immature Gran Absolute 0.03 0.00 - 0.05 x10(3)/ L [facility] Blood specimen (specimen) 09/17/2015 11:31 AM EDT 09/17/2015 11:38 AM EDT Narrative Resulting Agency Comment Spec In Lab Larry Larkin MD HEMATOLOGY ORDERABLE S [facility] [place] [address] * (ABNORMAL) Hemogram (09/17/2015 11:31 AM EDT) White Blood Cell 16.4(H) 4.0 - 10.0 x10(3)/ L [facility] Red Blood Cell 3.60(L) 4.63 - 6.08 x10(6)/mc L [facility] Hemoglobin 11.1(L) 13.7 - 17.5 gm/dL [facility] Hematocrit 33.9(L) 40.0 - 51.0 % [facility] Mean Cell Volume 94.2(H) 79.0 - 92.0 fL [facility] Mean Cell Hemoglobin 30.8 25.6 - 32.2 pg [facility] Mean Cell Hemoglobin Concentration 32.7 32.0 - 36.5 gm/dL [facility] Platelet 276 145 - 370 x10(3)/mc L [facility] RDW Standard Deviation 49.3(H) 35.0 - 46.0 fL [facility] RDW coefficient of variation 14.3 10.9 - 14.4 % [facility] Mean Platelet Volume 9.4 9.0 - 12.0 fL [facility] Blood specimen (specimen) 09/17/2015 11:31 AM EDT 09/17/2015 11:38 AM EDT Narrative Resulting Agency Comment Spec In Lab Larry Larkin MD HEMATOLOGY ORDERABLE S Performing Organization Address City/State/[facility] Co de Phone Number [facility] [place] [address] * HIV Quant (09/17/2015 11:31 AM EDT) HIV Viral Load Result (Qualitative) * RESULT: <20 copies/mL * (Target Not Detected) INDICATION FOR STUDY: HIV-1 Infection ANALYSIS: A real time PCR amplification assay was performed on extracted viral RNA for the purpose of quantification. SAMPLE: serum/plasma (1.0 mL minimum) METHOD: NIK?? AmpliPrep / NIK?? TaqMan?? HIV-1 Test v.2.0 LINEAR RANGE: 20 copies/mL ? 10,000,000 copies/mL plasma NOTE: The NIK?? AmpliPrep / NIK?? TaqMan?? HIV-1 Test v.2.0 has been approved by the U.S. Food and Drug Administration. Gibson Good, Ph.D. Director, Molecular Pathology [facility] Comment: [VERIFIED DATE]09.21.15 Verified By:Xiomy Gupta (Electronic Signature) Blood specimen (specimen) 09/17/2015 11:31 AM EDT 09/20/2015 2:24 PM EDT Narrative Resulting Agency Comment Spec In Lab Que Amaro MD HEMATOLOGY ORD ERABLES Performing Organization Address [facility]/ZIP Co de Phone Number [facility] [place] [address] * HBV Quant (09/17/2015 11:31 AM EDT) [facility] Hepatitis B DNA, quantitative, PCR Result: <20 IU/mL (Target Not Detected) Indication for Study: Hepatitis B Infection Analysis: A quantitative real time reverse transcriptase PCR assay was performed on extracted viral RNA for the purpose of quantification. Sample: plasma (0.5 mL minimum volume) Method: Kirsten Nik TaqMAN 48 HBV Linear Range: 20IU/mL - 170,000,000 IU/mL (95% CI) Interpretation: The result of this analysis is within the limits of detection of the assay. Note: This assay is being performed in the [facility] Molecular Pathology Laboratory. Gibson Good, Ph.D. Director, Molecular Pathology [facility] Blood specimen (specimen) 09/17/2015 11:31 AM EDT 09/21/2015 9:44 AM EDT Narrative Resulting Agency Comment Spec In Lab Que Amaro MD CHEMISTRY ORDE DICK Performing Organization Address [facility]/ZIP Co de Phone Number [facility] [place] [address] * (ABNORMAL) Potassium (09/17/2015 11:31 AM EDT) [facility] Potassium 5.6(H) 3.5 - 5.0 mmol/L [facility] Comment: Please note: ??Patients with WBC >100,000 may have falsely elevated Potassium levels. ??For accurate Potassium quantification in these patients send serum separator tube (gold top) for subsequent determinations. ??Contact the Clinical Chemistry Laboratory if there are any questions. Blood specimen (specimen) 09/17/2015 11:31 AM EDT 09/17/2015 11:38 AM EDT Narrative Resulting Agency Comment Spec In Lab Larry Larkin MD CHEMISTRY ORDERABLES Performing Organization Address City/[facility]/ZIP Co de Phone Number [facility] [place] [address] * Blood culture (09/17/2015 10:36 AM EDT) Blood Culture No growth at 5 days. [facility] Blood specimen (specimen) ARTERIAL LINE / Unknown 09/17/2015 10:36 AM EDT 09/17/2015 10:46 AM EDT Narrative Resulting Agency Comment Spec In Lab Larry Larkin MD MICROBIOLOGY - BLOOD ORDERABLES Performing Organization Address [facility] Co de Phone Number [facility] [place] [address] * Hep C Viral RNA NS3 Genotype (09/17/2015 10:17 AM EDT) HCV RNA NS3 Genotype See Note [facility] Comment: Please see scanned report in Chart Review under the Non-[facility] Laboratory Heading. Test performed by [facility], [address] [place] [address] Blood specimen (specimen) 09/17/2015 10:17 AM EDT 09/17/2015 11:42 AM EDT Narrative Resulting Agency Comment Spec In Lab Larry Larkin MD CHEMISTRY ORDERABLES Performing Organization Address [facility]/ZIP Co de Phone Number [facility] [place] [address] * Hepatitis C RNA, quantitative, PCR (09/17/2015 10:17 AM EDT) [facility] HCV Viral Load 323,972 IU/mL [facility] HCV Viral Load Result: [id number] IU/mL Indication for Study: Hepatitis C Infection Analysis: A quantitiative real time reverse transcriptase PCR assay was performed on extracted viral RNA for the purpose of quantification. Sample: plasma (1 mL minimum volume) Method: Kirsten Nik TaqMAN 48 HCV Linear Range: 15 IU/mL - 100,000,000IU/mL (95% CI) Note: This assay is being performed in the [facility] Molecular Pathology Laboratory. Gibson Good, Ph.D. Director, Molecular Pathology [facility] Comment: [VERIFIED DATE]09.21.15 Verified By:Xiomy Gupta (Electronic Signature) Blood specimen (specimen) 09/17/2015 10:17 AM EDT 09/20/2015 2:34 PM EDT Narrative Resulting Agency Comment Spec In Lab Larry Larkin MD MOLECULAR ORDERABLES [facility] [place] [address] * Blood culture (09/17/2015 10:17 AM EDT) [facility] Blood Culture No growth at 5 days. [facility] Blood specimen (specimen) ANTECUBITAL REGION STRUCTURE / Unknown 09/17/2015 10:17 AM EDT 09/17/2015 10:46 AM EDT Narrative Resulting Agency Comment Spec In Lab Larry Larkin MD MICROBIOLOGY - BLOOD ORDERABLES [facility] [place] [address] * (ABNORMAL) Phosphorus (09/17/2015 9:17 AM EDT) [facility] Phosphorus 6.9(H) 2.5 - 4.5 mg/dL [facility] Blood specimen (specimen) Venous Draw / Unknown 09/17/2015 9:17 AM EDT 09/17/2015 9:41 AM EDT Narrative Resulting Agency Comment Spec In Lab Larry Larkin MD CHEMISTRY ORDERABLES Performing Organization Address City/[facility]/ZIP Co de Phone Number [facility] [place] [address] * Magnesium (09/17/2015 9:17 AM EDT) Pathologist [facility] Magnesium 0.75 0.69 - 1.07 mmol/L [facility] Blood specimen (specimen) Venous Draw / Unknown 09/17/2015 9:17 AM EDT 09/17/2015 9:41 AM EDT Narrative Resulting Agency Comment Spec In Lab Larry Larkin MD CHEMISTRY ORDERABLES Performing Organization Address [facility] Co de Phone Number [facility] [place] [address] * (ABNORMAL) Differential, Automated (09/17/2015 9:17 AM EDT) [facility] Neutrophil % 90.3 % [facility] Neutrophil Absolute 13.67(H) 1.50 - 6.30 x10(3)/mc L [facility] Lymph % 3.7 % [facility] Lymphocytes Abs 0.6(L) 1.0 - 3.6 x10(3)/mc L [facility] Monocyte % 5.6 % [facility] Monocyte Abs 0.8 0.2 - 1.0 x10(3)/mc L [facility] Eos % 0.0 % [facility] Eosinophils Abs 0.0 0.0 - 0.5 x10(3)/mc L [facility] Basophil % 0.1 % [facility] Baso Absolute 0.0 0.0 - 0.2 x10(3)/mc L [facility] Immature Gran % 0.30 % [facility] Comment: Immature granulocytes(IG's)percentage and absolute count will include metamyelocytes, myelocytes, and promyelocytes. Blood smears from CBCs yielding IG's will be scanned manually for concordance. If this scan disagrees with the automated IG or if promyelocytes are noted, a manual differential will be performed. Immature Gran Absolute 0.04 0.00 - 0.05 x10(3)/mc L [facility] Blood specimen (specimen) 09/17/2015 9:17 AM EDT 09/17/2015 9:41 AM EDT Narrative Resulting Agency Comment Spec In Lab Larry Larkin MD HEMATOLOGY ORDERABLE S [facility] [place] [address] * (ABNORMAL) Hemogram (09/17/2015 9:17 AM EDT) White Blood Cell 15.1(H) 4.0 - 10.0 x10(3)/mc L [facility] Red Blood Cell 3.58(L) 4.63 - 6.08 x10(6)/mc L [facility] Hemoglobin 11.3(L) 13.7 - 17.5 gm/dL [facility] Hematocrit 33.3(L) 40.0 - 51.0 % [facility] Mean Cell Volume 93.0(H) 79.0 - 92.0 fL [facility] Mean Cell Hemoglobin 31.6 25.6 - 32.2 pg [facility] Mean Cell Hemoglobin Concentration 33.9 32.0 - 36.5 gm/dL [facility] Platelet 271 145 - 370 x10(3)/mc L [facility] RDW Standard Deviation 49.5(H) 35.0 - 46.0 fL [facility] RDW coefficient of variation 14.5(H) 10.9 - 14.4 % [facility] Mean Platelet Volume 9.5 9.0 - 12.0 fL [facility] Blood specimen (specimen) 09/17/2015 9:17 AM EDT 09/17/2015 9:41 AM EDT Narrative Resulting Agency Comment Spec In Lab Larry Larkin MD HEMATOLOGY ORDERABLE S [facility] [place] [address] * (ABNORMAL) Comprehensive metabolic panel (non-fasting) (09/17/2015 9:17 AM EDT) Glucose 157 65 - 199 mg/dL [facility] Comment:Diabetes: >=200 mg/d L plus symptoms Blood Urea Nitrogen 59(H) 10 - 20 mg/dL [facility] Creatinine 6.96(H) 0.80 - 1.50 mg/dL [facility] Comment: Please note that the pediatric reference intervals supplied above were not validated at [facility]. Results from pediatric patients should be interpreted in conjunction to the patient's age, height and muscle mass. Sodium 137 135 - 145 mmol/L [facility] Potassium Not Perf 3.5 - 5.0 mmol/L [facility] Comment: Unable to quantitate due to sample hemolysis. ??Sample redraw suggested. Called by: _, Read back by: rafy hooker, Date/Time:09/17/15 10:48. Please note: ??Patients with WBC >100,000 may have falsely elevated Potassium levels. ??For accurate Potassium quantification in these patients send serum separator tube (gold top) for subsequent determinations. ??Contact the Clinical Chemistry Laboratory if there are any questions. Chloride 100 98 - 107 mmol/L [facility] Carbon Dioxide 16(L) 22 - 31 mmol/L [facility] Anion Gap 21(H) 5 - 15 mmol/L [facility] Calcium 8.6 8.5 - 10.5 mg/dL [facility] Protein, Total 6.7 6.1 - 8.0 gm/dL [facility] Albumin 3.5 3.2 - 5.2 gm/dL [facility] Aspartate Aminotransferase Not Perf 0 - 39 unit/L [facility] Comment: Unable to quantitate due to sample hemolysis. ??Sample redraw suggested. Called by:nasra _, Read back by: rafy hooker, Date/Time:09/17/15 10:48. Alanine Aminotransferase 18 0 - 55 unit/L [facility] Alkaline Phosphatase 57 40 - 120 unit/L [facility] Bilirubin, Total 0.7 0.2 - 1.3 mg/dL [facility] Bilirubin, Direct Not Perf 0.0 - 0.3 mg/dL [facility] Comment: Unable to quantitate due to sample hemolysis. ??Sample redraw suggested. Called by:nasra _, Read back by: rafy hooker, Date/Time:09/17/15 10:48. Est Glomerular Filtration Rate 8(L) >=60 [facility] [...] the following links into your internet browser. [email or web address] Blood specimen (specimen) 09/17/2015 9:17 AM EDT 09/17/2015 9:41 AM EDT Narrative Resulting Agency Comment Spec In Lab Larry Larkin MD CHEMISTRY ORDERABLES [facility] [place] [place] [address] * Vancomycin, trough (09/17/2015 9:17 AM EDT) Vancomycin, Trough 24.6 mg/L [facility] Comment: Therapeutic range for complicated infections such as bacteremia, endocarditis, osteomyelitis, meningitis, and hospital-acquired pneumonia caused by S. aureus: 15-20 mg/L Therapeutic range for other indications: 10-15 mg/L Toxic: >25mg/L Reference: Vancomycin Therapeutic Monitoring: Review and Recommendations from the ASHP, IDSA and SIDP Task Force. ??[employer] J [employer] 2009; 66:82-98 Blood specimen (specimen) 09/17/2015 9:17 AM EDT 09/17/2015 9:41 AM EDT Narrative Resulting Agency Comment Spec In Lab Larry Larkin MD CHEMISTRY ORDERABLES Performing Organization Address [facility] Co de Phone Number [facility] [place] [address] * POCT Glucose (09/17/2015 8:58 AM EDT) [facility] Glucose, POC 143 65 - 199 mg/dL [facility] Comment: Supplemental ranges: <140 mg/dL before meals <180 mg/dL all other times of the day Blood specimen (specimen) 09/17/2015 8:58 AM EDT 09/17/2015 8:58 AM EDT Larry Larkin MD POINT OF CARE TEST O RDERABLES Performing Organization Address [facility] de Phone Number [facility] [place] [address] * (ABNORMAL) Differential, Automated (09/17/2015 3:30 AM EDT) [facility] Neutrophil % 92.5 % [facility] Neutrophil Absolute 12.16(H) 1.50 - 6.30 x10(3)/mc L [facility] Lymph % 3.6 % [facility] Lymphocytes Abs 0.5(L) 1.0 - 3.6 x10(3)/mc L [facility] Monocyte % 3.5 % [facility] Monocyte Abs 0.5 0.2 - 1.0 x10(3)/mc L [facility] Eos % 0.1 % [facility] Eosinophils Abs 0.0 0.0 - 0.5 x10(3)/[facility] Basophil % 0.1 % [facility] Baso Absolute 0.0 0.0 - 0.2 x10(3)/[facility] Immature Gran % 0.20 % [facility] Comment: Immature granulocytes(IG's)percentage and absolute count will include metamyelocytes, myelocytes, and promyelocytes. Blood smears from CBCs yielding IG's will be scanned manually for concordance. If this scan disagrees with the automated IG or if promyelocytes are noted, a manual differential will be performed. Immature Gran Absolute 0.02 0.00 - 0.05 x10(3)/[facility] Blood specimen (specimen) 09/17/2015 3:30 AM EDT 09/17/2015 3:36 AM EDT Narrative Resulting Agency Comment Spec In Lab Larry Larkin MD HEMATOLOGY ORDERABLE S [facility] [place] [address] * (ABNORMAL) Hemogram (09/17/2015 3:30 AM EDT) White Blood Cell 13.1(H) 4.0 - 10.0 x10(3)/[facility] Red Blood Cell 3.56(L) 4.63 - 6.08 x10(6)/[facility] Hemoglobin 11.2(L) 13.7 - 17.5 gm/dL [facility] Hematocrit 32.8(L) 40.0 - 51.0 % [facility] Mean Cell Volume 92.1(H) 79.0 - 92.0 fL [facility] Mean Cell Hemoglobin 31.5 25.6 - 32.2 pg [facility] Mean Cell Hemoglobin Concentration 34.1 32.0 - 36.5 gm/dL [facility] Platelet 223 145 - 370 x10(3)/mc L [facility] RDW Standard Deviation 48.0(H) 35.0 - 46.0 fL [facility] RDW coefficient of variation 14.3 10.9 - 14.4 % [facility] Mean Platelet Volume 9.4 9.0 - 12.0 fL [facility] Blood specimen (specimen) 09/17/2015 3:30 AM EDT 09/17/2015 3:36 AM EDT Narrative Resulting Agency Comment Spec In Lab Larry Larkin MD HEMATOLOGY ORDERABLE S Performing Organization Address [facility] Co de Phone Number [facility] [place] [address] * (ABNORMAL) Phosphorus (09/17/2015 3:30 AM EDT) Phosphorus 6.7(H) 2.5 - 4.5 mg/dL [facility] Blood specimen (specimen) 09/17/2015 3:30 AM EDT 09/17/2015 3:36 AM EDT Narrative Resulting Agency Comment Spec In Lab Larry Larkin MD CHEMISTRY ORDERABLES Performing Organization Address [facility] Co de Phone Number [facility] [place] [address] * Magnesium (09/17/2015 3:30 AM EDT) Magnesium 0.73 0.69 - 1.07 mmol/L [facility] Blood specimen (specimen) 09/17/2015 3:30 AM EDT 09/17/2015 3:36 AM EDT Narrative Resulting Agency Comment Spec In Lab Larry Larkin MD CHEMISTRY ORDERABLES Performing Organization Address [facility] Co de Phone Number [facility] [place] [address] * (ABNORMAL) Comprehensive metabolic panel (non-fasting) (09/17/2015 3:30 AM EDT) Glucose 160 65 - 199 mg/dL [facility] Comment:Diabetes: >=200 mg/d L plus symptoms Blood Urea Nitrogen 52(H) 10 - 20 mg/dL [facility] Creatinine 6.94(H) 0.80 - 1.50 mg/dL [facility] Comment: Please note that the pediatric reference intervals supplied above were not validated at [facility]. Results from pediatric patients should be interpreted in conjunction to the patient's age, height and muscle mass. Sodium 137 135 - 145 mmol/L [facility] Potassium 5.7(H) 3.5 - 5.0 mmol/L [facility] Anion Gap 16(H) 5 - 15 mmol/L [facility] Calcium 8.3(L) 8.5 - 10.5 mg/dL [facility] Protein, Total 6.4 6.1 - 8.0 gm/dL [facility] Albumin 3.3 3.2 - 5.2 gm/dL [facility] Aspartate Aminotransferase 20 0 - 39 unit/L [facility] Alanine Aminotransferase 16 0 - 55 unit/L [facility] Alkaline Phosphatase 55 40 - 120 unit/L [facility] Bilirubin, Total 0.6 0.2 - 1.3 mg/dL [facility] Bilirubin, Direct 0.2 0.0 - 0.3 mg/dL [facility] Est Glomerular Filtration Rate 8(L) >=60 [facility] [...] the following links into your internet browser. [email or web address] Blood specimen (specimen) 09/17/2015 3:30 AM EDT 09/17/2015 3:36 AM EDT Narrative Resulting Agency Comment Spec In Lab Larry Larkin MD CHEMISTRY ORDERABLES [facility] [place] [address] * (ABNORMAL) Differential, Automated (09/16/2015 9:50 PM EDT) Neutrophil % 92.3 % [facility] Neutrophil Absolute 12.45(H) 1.50 - 6.30 x10(3)/mc L [facility] Lymph % 3.6 % [facility] Lymphocytes Abs 0.5(L) 1.0 - 3.6 x10(3)/mc L [facility] Monocyte % 3.6 % [facility] Monocyte Abs 0.5 0.2 - 1.0 x10(3)/mc L [facility] Eos % 0.1 % [facility] Eosinophils Abs 0.0 0.0 - 0.5 x10(3)/mc L [facility] Basophil % 0.1 % [facility] Baso Absolute 0.0 0.0 - 0.2 x10(3)/mc L [facility] Immature Gran % 0.30 % [facility] Comment: Immature granulocytes(IG's)percentage and absolute count will include metamyelocytes, myelocytes, and promyelocytes. Blood smears from CBCs yielding IG's will be scanned manually for concordance. If this scan disagrees with the automated IG or if promyelocytes are noted, a manual differential will be performed. Immature Gran Absolute 0.04 0.00 - 0.05 x10(3)/mc L [facility] Blood specimen (specimen) 09/16/2015 9:50 PM EDT 09/16/2015 10:05 PM EDT Narrative Resulting Agency Comment Spec In Lab Larry Larkin MD HEMATOLOGY ORDERABLE S [facility] [place] [address] * (ABNORMAL) Hemogram (09/16/2015 9:50 PM EDT) White Blood Cell 13.5(H) 4.0 - 10.0 x10(3)/mc L [facility] Red Blood Cell 3.70(L) 4.63 - 6.08 x10(6)/[facility] Hemoglobin 11.7(L) 13.7 - 17.5 gm/dL [facility] Hematocrit 33.9(L) 40.0 - 51.0 % [facility] Mean Cell Volume 91.6 79.0 - 92.0 fL [facility] Mean Cell Hemoglobin 31.6 25.6 - 32.2 pg [facility] Mean Cell Hemoglobin Concentration 34.5 32.0 - 36.5 gm/dL [facility] Platelet 227 145 - 370 x10(3)/mc L [facility] RDW Standard Deviation 47.7(H) 35.0 - 46.0 fL [facility] RDW coefficient of variation 14.3 10.9 - 14.4 % [facility] Mean Platelet Volume 9.5 9.0 - 12.0 fL [facility] Blood specimen (specimen) 09/16/2015 9:50 PM EDT 09/16/2015 10:05 PM EDT Narrative Resulting Agency Comment Spec In Lab Larry Larkin MD HEMATOLOGY ORDERABLE S Performing Organization Address [facility]/ZIP Co de Phone Number [facility] [place] [address] * (ABNORMAL) Phosphorus (09/16/2015 9:50 PM EDT) Pathologist [facility] Phosphorus 6.2(H) 2.5 - 4.5 mg/dL [facility] Blood specimen (specimen) 09/16/2015 9:50 PM EDT 09/16/2015 10:05 PM EDT Narrative Resulting Agency Comment Spec In Lab Larry Larkin MD CHEMISTRY ORDERABLES Performing Organization Address [facility] Co de Phone Number [facility] [place] [address] * Magnesium (09/16/2015 9:50 PM EDT) [facility] Magnesium 0.75 0.69 - 1.07 mmol/L [facility] Blood specimen (specimen) 09/16/2015 9:50 PM EDT 09/16/2015 10:05 PM EDT Narrative Resulting Agency Comment Spec In Lab Larry Larkin MD CHEMISTRY ORDERABLES Performing Organization Address [facility] Co de Phone Number [facility] [place] [address] * (ABNORMAL) Comprehensive metabolic panel (non-fasting) (09/16/2015 9:50 PM EDT) Pathologist [facility] Glucose 158 65 - 199 mg/dL [facility] Comment:Diabetes: >=200 mg/d L plus symptoms Blood Urea Nitrogen 48(H) 10 - 20 mg/dL [facility] Creatinine 6.94(H) 0.80 - 1.50 mg/dL [facility] Comment: Please note that the pediatric reference intervals supplied above were not validated at [facility]. Results from pediatric patients should be interpreted in conjunction to the patient's age, height and muscle mass. Sodium 138 135 - 145 mmol/L [facility] Potassium 5.3(H) 3.5 - 5.0 mmol/L [facility] Comment: Please note: ??Patients with WBC >100,000 may have falsely elevated Potassium levels. ??For accurate Potassium quantification in these patients send serum separator tube (gold top) for subsequent determinations. ??Contact the Clinical Chemistry Laboratory if there are any questions. Chloride 100 98 - 107 mmol/L [facility] Carbon Dioxide 22 22 - 31 mmol/L [facility] Anion Gap 16(H) 5 - 15 mmol/L [facility] Calcium 8.5 8.5 - 10.5 mg/dL [facility] Protein, Total 6.6 6.1 - 8.0 gm/dL [facility] Albumin 3.4 3.2 - 5.2 gm/dL [facility] Aspartate Aminotransferase 19 0 - 39 unit/L [facility] Alanine Aminotransferase 17 0 - 55 unit/L [facility] Alkaline Phosphatase 59 40 - 120 unit/L [facility] Bilirubin, Total 0.7 0.2 - 1.3 mg/dL [facility] Bilirubin, Direct 0.2 0.0 - 0.3 mg/dL [facility] Est Glomerular Filtration Rate 8(L) >=60 [facility] [...] the following links into your internet browser. [email or web address] Blood specimen (specimen) 09/16/2015 9:50 PM EDT 09/16/2015 10:05 PM EDT Narrative Resulting Agency Comment Spec In Lab Larry Larkin MD CHEMISTRY ORDERABLES Performing Organization Address City/[facility]/ZIP Co de Phone Number [facility] [place] [address] * POCT Glucose (09/16/2015 5:36 PM EDT) [facility] Glucose, POC 135 65 - 199 mg/dL [facility] Comment: Supplemental ranges: <140 mg/dL before meals <180 mg/dL all other times of the day Blood specimen (specimen) 09/16/2015 5:36 PM EDT 09/16/2015 5:36 PM EDT Larry Larkin MD POINT OF CARE TEST O RDERABLES Performing Organization Address [facility] Co de Phone Number [facility] [place] [address] * (ABNORMAL) Differential, Automated (09/16/2015 3:29 PM EDT) [facility] Neutrophil % 88.2 % [facility] Neutrophil Absolute 6.47(H) 1.50 - 6.30 x10(3)/mc L [facility] Lymph % 8.3 % [facility] Lymphocytes Abs 0.6(L) 1.0 - 3.6 x10(3)/mc L [facility] Monocyte % 1.5 % [facility] Monocyte Abs 0.1(L) 0.2 - 1.0 x10(3)/mc L [facility] Eos % 1.6 % [facility] Eosinophils Abs 0.1 0.0 - 0.5 x10(3)/mc L [facility] Basophil % 0.3 % [facility] Baso Absolute 0.0 0.0 - 0.2 x10(3)/mc L [facility] Immature Gran % 0.10 % [facility] Comment: Immature granulocytes(IG's)percentage and absolute count will include metamyelocytes, myelocytes, and promyelocytes. Blood smears from CBCs yielding IG's will be scanned manually for concordance. If this scan disagrees with the automated IG or if promyelocytes are noted, a manual differential will be performed. Immature Gran Absolute 0.01 0.00 - 0.05 x10(3)/mc L [facility] Blood specimen (specimen) 09/16/2015 3:29 PM EDT 09/16/2015 3:29 PM EDT Narrative Resulting Agency Comment Spec In Lab Larry Larkin MD HEMATOLOGY ORDERABLE S [facility] [place] [address] * (ABNORMAL) Hemogram (09/16/2015 3:29 PM EDT) White Blood Cell 7.3 4.0 - 10.0 x10(3)/mc L [facility] Red Blood Cell 3.65(L) 4.63 - 6.08 x10(6)/mc L [facility] Hemoglobin 11.5(L) 13.7 - 17.5 gm/dL [facility] Hematocrit 33.3(L) 40.0 - 51.0 % [facility] Mean Cell Volume 91.2 79.0 - 92.0 fL [facility] Mean Cell Hemoglobin 31.5 25.6 - 32.2 pg [facility] Mean Cell Hemoglobin Concentration 34.5 32.0 - 36.5 gm/dL [facility] Platelet 211 145 - 370 x10(3)/mc L [facility] RDW Standard Deviation 46.8(H) 35.0 - 46.0 fL [facility] RDW coefficient of variation 14.1 10.9 - 14.4 % [facility] Mean Platelet Volume 9.3 9.0 - 12.0 fL [facility] Blood specimen (specimen) 09/16/2015 3:29 PM EDT 09/16/2015 3:29 PM EDT Narrative Resulting Agency Comment Spec In Lab Larry Larkin MD HEMATOLOGY ORDERABLE S Performing Organization Address City/[facility] Co de Phone Number [facility] [place] [address] * APTT (09/16/2015 3:29 PM EDT) Partial Thromboplastin Time 29 25 - 35 sec [facility] Comment: The recommended therapeutic range for full dose, unfractionated heparin at [facility] is 80 ? 114 seconds. The use of the anti-Xa (heparin) level rather than the PTT is recommended for monitoring anticoagulation intensity in critically ill patients receiving unfractionated heparin by continuous IV infusion. Blood specimen (specimen) 09/16/2015 3:29 PM EDT 09/16/2015 3:29 PM EDT Narrative Resulting Agency Comment Spec In Lab Larry Larkin MD HEMATOLOGY ORDERABLE S Performing Organization Address [facility] Co de Phone Number [facility] [place] [address] * Prothrombin Time (09/16/2015 3:29 PM EDT) Prothrombin Time 14.3 12.0 - 15.0 sec [facility] Comment: An INR [...] International Normalization Ratio 1.1 0.9 - 1.1 [facility] Blood specimen (specimen) 09/16/2015 3:29 PM EDT 09/16/2015 3:29 PM EDT Narrative Resulting Agency Comment Spec In Lab Larry aLrkin MD HEMATOLOGY ORDERABLE S Performing Organization Address City/[facility] Co de Phone Number [facility] [place] [address] * (ABNORMAL) Comprehensive metabolic panel (non-fasting) (09/16/2015 3:29 PM EDT) Glucose 148 65 - 199 mg/dL [facility] Comment:Diabetes: >=200 mg/d L plus symptoms Blood Urea Nitrogen 45(H) 10 - 20 mg/dL [facility] Creatinine 6.99(H) 0.80 - 1.50 mg/dL [facility] Comment: Please note that the pediatric reference intervals supplied above were not validated at [facility]. Results from pediatric patients should be interpreted in conjunction to the patient's age, height and muscle mass. Sodium 136 135 - 145 mmol/L [facility] Potassium 5.0 3.5 - 5.0 mmol/L [facility] Calcium 8.3(L) 8.5 - 10.5 mg/dL [facility] Comment:result rechecked-DANITZA Protein, Total 6.7 6.1 - 8.0 gm/dL [facility] Albumin 3.3 3.2 - 5.2 gm/dL [facility] Aspartate Aminotransferase 19 0 - 39 unit/L [facility] Alanine Aminotransferase 18 0 - 55 unit/L [facility] Alkaline Phosphatase 59 40 - 120 unit/L [facility] Bilirubin, Total 0.9 0.2 - 1.3 mg/dL [facility] Bilirubin, Direct 0.2 0.0 - 0.3 mg/dL [facility] Est Glomerular Filtration Rate 8(L) >=60 [facility] [...] the following links into your internet browser. [email or web address] Blood specimen (specimen) 09/16/2015 3:29 PM EDT 09/16/2015 3:29 PM EDT Narrative Resulting Agency Comment Spec In Lab Larry Larkin MD CHEMISTRY ORDERABLES Performing Organization Address [facility] Phone Number [facility] [place] [address] * Magnesium (09/16/2015 3:29 PM EDT) Magnesium 0.75 0.69 - 1.07 mmol/L [facility] Blood specimen (specimen) 09/16/2015 3:29 PM EDT 09/16/2015 3:29 PM EDT Narrative Resulting Agency Comment Spec In Lab Larry Larkin MD CHEMISTRY ORDERABLES Performing Organization Address [facility] Phone Number [facility] [place] [address] * POCT Glucose (09/16/2015 3:12 PM EDT) Glucose, POC 125 65 - 199 mg/dL [facility] Comment: Supplemental ranges: <140 mg/dL before meals <180 mg/dL all other times of the day Blood specimen (specimen) 09/16/2015 3:12 PM EDT 09/16/2015 3:12 PM EDT Larry Larkin MD POINT OF CARE TEST O RDERABLES Performing Organization Address [facility]/State/ZIP Co de Phone Number [facility] [place] [address] * (ABNORMAL) BLOOD GAS 2 ARTERIAL (09/16/2015 2:02 PM EDT) pH, Arterial 7.37 7.35 - 7.45 [facility] PCO2, Arterial 43 35 - 45 mmHg [facility] PO2, Arterial 204(H) 85 - 104 mmHg [facility] Bicarbonate, Arterial 24.1 20.0 - 26.0 mmol/L [facility] Base Excess, Arterial -1.1 -3.0 - 3.0 mmol/L [facility] Hgb Blood Gas 11.4(L) 13.7 - 17.5 gm/dL [facility] Oxyhemoglobin, Arterial 98.8(H) 94.0 - 97.0 % [facility] Carboxyhemoglob in, Arterial 0.2 % [facility] Comment: Nonsmokers: 0.5-1.5% COHB Smokers: Variable, but usually less than 10% Toxic: 20-30% COHB Lethal: Greater than 60% COHB Methemoglobin, Arterial 0.3 <=1.5 % [facility] Na Whole Blood 135 135 - 145 mmol/L [facility] K Whole Blood 4.8 3.5 - 5.0 mmol/L [facility] Comment: Please note: Patients with WBC >100,000 may have falsely elevated Potassium levels. Contact the Clinical Chemistry Laboratory if there are any questions. ICa Whole Blood 1.08(L) 1.15 - 1.33 mmol/L [facility] Comment: Note: ??Total bilirubin higher than 20 mg/dL may lead to falsely low ionized calcium. CL Whole Blood 102 98 - 107 mmol/L [facility] Gluc Whole Bld 135 65 - 199 mg/dL [facility] Comment:Diabetes: >=200 mg/d L plus symptoms. Blood specimen (specimen) 09/16/2015 2:02 PM EDT 09/16/2015 2:02 PM EDT Larry Larkin MD POINT OF CARE TEST O RDERABLES Performing Organization Address [facility]/ZIP Co de Phone Number [facility] [place] [address] * CMV Antibody, IgG (09/16/2015 10:28 AM EDT) CMV IgG Neg Neg [facility] Blood specimen (specimen) 09/16/2015 10:28 AM EDT 09/17/2015 7:28 AM EDT Narrative Resulting Agency Comment Spec In Lab Larry Larkin MD IMMUNOLOGY ORDERABLE S Performing Organization Address [facility] Co de Phone Number [facility] [place] [address] * EKG 12 Lead (09/16/2015 10:10 AM EDT) Ventricular rate 60 BPM MUSE SYSTEM Atrial Rate 60 BPM MUSE SYSTEM P-R Interval 184 ms MUSE SYSTEM QRS Duration 110 ms MUSE SYSTEM Q-T Interval 476 ms MUSE SYSTEM QTC Calculated (Bezet) 476 ms MUSE SYSTEM Calculated P Caldwell -14 degrees MUSE SYSTEM Calculated R Caldwell -44 degrees MUSE SYSTEM Calculated T Caldwell -26 degrees MUSE SYSTEM INTERPRETATION Sinus rhythm Occasional Premature atrial complexes Left axis deviation Nonspecific T wave abnormality Abnormal ECG When compared with ECG of 29-MAY-2015 10:24, T wave inversion no longer evident in Lateral leads Confirmed by MD FISH, JUNG ([id number]) on 09/16/2015 12:22:23 PM MUSE SYSTEM 09/16/2015 10:1 0 AM EDT 09/16/2015 12:22 PM EDT Larry Larkin MD ECG ORDERABLES Performing Organization Address [facility] Co de Phone Number MUSE SYSTEM * Differential, Automated (09/16/2015 10:08 AM EDT) Neutrophil % 65.2 % [facility] Neutrophil Absolute 4.72 1.50 - 6.30 x10(3)/mcL [facility] Lymph % 20.3 % [facility] Lymphocytes Abs 1.5 1.0 - 3.6 x10(3)/[facility] Monocyte % 8.1 % [facility] Monocyte Abs 0.6 0.2 - 1.0 x10(3)/[facility] Eos % 5.4 % [facility] Eosinophils Abs 0.4 0.0 - 0.5 x10(3)/[facility] Basophil % 0.7 % [facility] Baso Absolute 0.0 0.0 - 0.2 x10(3)/[facility] Immature Gran % 0.30 % [facility] Comment: Immature granulocytes(IG's)percentage and absolute count will include metamyelocytes, myelocytes, and promyelocytes. Blood smears from CBCs yielding IG's will be scanned manually for concordance. If this scan disagrees with the automated IG or if promyelocytes are noted, a manual differential will be performed. Immature Gran Absolute 0.02 0.00 - 0.05 x10(3)/[facility] Blood specimen (specimen) 09/16/2015 10:08 AM EDT 09/16/2015 10:23 AM EDT Narrative Resulting Agency Comment Spec In Lab Larry Larkin MD HEMATOLOGY ORDERABLE S [facility] [place] [address] * (ABNORMAL) Hemogram (09/16/2015 10:08 AM EDT) White Blood Cell 7.2 4.0 - 10.0 x10(3)/mc L [facility] Red Blood Cell 3.83(L) 4.63 - 6.08 x10(6)/mc L [facility] Hemoglobin 12.1(L) 13.7 - 17.5 gm/dL [facility] Hematocrit 35.8(L) 40.0 - 51.0 % [facility] Mean Cell Volume 93.5(H) 79.0 - 92.0 fL [facility] Mean Cell Hemoglobin 31.6 25.6 - 32.2 pg [facility] Mean Cell Hemoglobin Concentration 33.8 32.0 - 36.5 gm/dL [facility] Platelet 231 145 - 370 x10(3)/mc L [facility] RDW Standard Deviation 47.3(H) 35.0 - 46.0 fL [facility] RDW coefficient of variation 13.9 10.9 - 14.4 % [facility] Mean Platelet Volume 9.4 9.0 - 12.0 fL [facility] Blood specimen (specimen) 09/16/2015 10:08 AM EDT 09/16/2015 10:23 AM EDT Narrative Resulting Agency Comment Spec In Lab Larry Larkin MD HEMATOLOGY ORDERABLE S [facility] [place] [address] * Antibody screen (09/16/2015 10:08 AM EDT) Ab Screen Interp Negative [facility] Expires at [id number] on: 09/19/2015 [facility] Blood specimen (specimen) 09/16/2015 10:08 AM EDT 09/16/2015 10:17 AM EDT Narrative Resulting Agency Comment Spec In Lab Larry Larkin MD BLOOD BANK LAB ORDER IGNACIO [facility] [place] [address] * ABO/Rh Typing (09/16/2015 10:08 AM EDT) ABORH Type AB Pos [facility] Blood specimen (specimen) 09/16/2015 10:08 AM EDT 09/16/2015 10:17 AM EDT Narrative Resulting Agency Comment Spec In Lab Larry Larkin MD BLOOD BANK LAB ORDER IGNACIO Performing Organization Address [facility] Co de Phone Number [facility] [place] [address] * APTT (09/16/2015 10:08 AM EDT) Partial Thromboplastin Time 28 25 - 35 sec [facility] Comment: The recommended therapeutic range for full dose, unfractionated heparin at [facility] is 80 ? 114 seconds. The use of the anti-Xa (heparin) level rather than the PTT is recommended for monitoring anticoagulation intensity in critically ill patients receiving unfractionated heparin by continuous IV infusion. Blood specimen (specimen) 09/16/2015 10:08 AM EDT 09/16/2015 10:23 AM EDT Narrative Resulting Agency Comment Spec In Lab Larry Larkin MD HEMATOLOGY ORDERABLE S Performing Organization Address [facility] de Phone Number [facility] [place] [address] * Prothrombin Time (09/16/2015 10:08 AM EDT) Prothrombin Time 14.0 12.0 - 15.0 sec [facility] Comment: An INR [...] International Normalization Ratio 1.1 0.9 - 1.1 [facility] Blood specimen (specimen) 09/16/2015 10:08 AM EDT 09/16/2015 10:23 AM EDT Narrative Resulting Agency Comment Spec In Lab Larry Larkin MD HEMATOLOGY ORDERABLE S Performing Organization Address City/[facility] Co de Phone Number [facility] [place] [address] * (ABNORMAL) Phosphorus (09/16/2015 10:08 AM EDT) Pathologist [facility] Phosphorus 5.0(H) 2.5 - 4.5 mg/dL [facility] Blood specimen (specimen) 09/16/2015 10:08 AM EDT 09/16/2015 10:23 AM EDT Narrative Resulting Agency Comment Spec In Lab Larry Larkin MD CHEMISTRY ORDERABLES Performing Organization Address City/[facility]/ZIP Co de Phone Number [facility] [place] [address] * Magnesium (09/16/2015 10:08 AM EDT) [facility] Magnesium 0.83 0.69 - 1.07 mmol/L [facility] Blood specimen (specimen) 09/16/2015 10:08 AM EDT 09/16/2015 10:23 AM EDT Narrative Resulting Agency Comment Spec In Lab Larry Larkin MD CHEMISTRY ORDERABLES Performing Organization Address City/[facility]/ZIP Co de Phone Number [facility] [place] [address] * (ABNORMAL) Comprehensive metabolic panel (non-fasting) (09/16/2015 10:08 AM EDT) [facility] Glucose 127 65 - 199 mg/dL [facility] Comment:Diabetes: >=200 mg/d L plus symptoms Blood Urea Nitrogen 44(H) 10 - 20 mg/dL [facility] Creatinine 7.50(H) 0.80 - 1.50 mg/dL [facility] Comment: Please note that the pediatric reference intervals supplied above were not validated at [facility]. Results from pediatric patients should be interpreted in conjunction to the patient's age, height and muscle mass. Sodium 139 135 - 145 mmol/L [facility] Potassium 4.9 3.5 - 5.0 mmol/L [facility] Calcium 9.4 8.5 - 10.5 mg/dL [facility] Protein, Total 7.4 6.1 - 8.0 gm/dL [facility] Albumin 3.8 3.2 - 5.2 gm/dL [facility] Aspartate Aminotransferase 15 0 - 39 unit/L [facility] Alanine Aminotransferase 18 0 - 55 unit/L [facility] Alkaline Phosphatase 65 40 - 120 unit/L [facility] Bilirubin, Total 0.9 0.2 - 1.3 mg/dL [facility] Bilirubin, Direct 0.1 0.0 - 0.3 mg/dL [facility] Est Glomerular Filtration Rate 7(L) >=60 [facility] [...] the following links into your internet browser. [email or web address] Blood specimen (specimen) 09/16/2015 10:08 AM EDT 09/16/2015 10:23 AM EDT Narrative Resulting Agency Comment Spec In Lab Larry Larkin MD [place] [address] documented in this encounter Visit Diagnoses Diagnosis Renal transplant recipient- Primary ESRD (end stage renal disease) End stage renal disease Renal failure Renal failure, unspecified documented in this encounter Admitting Diagnoses Diagnosis Renal failure Renal failure, unspecified documented in this encounter Administered Medications Inactive Administered Medications - up to 3 most recent administrations Medication Order MAR Action Action Date Dose Rate Site acetaminophen (TYLENOL) tablet 650 mg 650 mg, Oral, FILLER LEAF CUTTER LONG TO O.R., 1 dose, On Thu09/16/15 at 1015, Maximum dose of acetaminophen is 4000 mg from all sources in 24 hours., Day of Surgery (Day of Procedure), Routine Given 09/16/2015 11:08 AM EDT 1,000 mg atorvastatin (LIPITOR) tablet 10 mg 10 mg, Oral, EVERY EVENING, First dose on Thu09/19/15 at 1700, Until Discontinued, Routine Given 09/19/2015 4:47 PM EDT 10 mg basiliximab (SIMULECT) 20 mg in sodium chloride 0.9% 55 mL 20 mg, Intravenous, ONCE, 1 dose, On Laura 09/20/15 at 0800, Given in the morning on POD# 4.(Check with transplant attending). New Bag 09/20/2015 8:42 AM EDT 20 mg bisacodyl (DULCOLAX) EC tablet 10 mg 10 mg, Oral, 2 TIMES DAILY, First dose on Thu09/16/15 at 2100, Until Discontinued, DO NOT CRUSH OR OPEN, Routine Given 09/20/2015 8:30 AM EDT 10 mg Given 09/19/2015 8:57 PM EDT 10 mg Given 09/19/2015 8:25 AM EDT 10 mg BUpivacaine-EPINEPHrine 0.25 %-1:200,000 injection 20 mL 20 mL (50 mg), Infiltration, ONCE, 1 dose, On Thu09/19/15 at 1345, For use in Interventional Radiology (IR) only for procedural sedation with direct provider supervision and verbal order., Angio/IR (Intra-Procedure), Routine Given 09/19/2015 2:30 PM EDT 20 mLs carvedilol (COREG) tablet 12.5 mg 12.5 mg, Oral, DAILY WITH DINNER, First dose on Thu09/18/15 at 1700, Until Discontinued, Routine Given 09/19/2015 4:47 PM EDT 12.5 mg Given 09/18/2015 5:35 PM EDT 12.5 mg cefTAZidime (FORTAZ) 2g vial attach to sodium chloride 0.9% 50 mL Mini-Bag Plus 2 g, Intravenous, EVERY 12 HOURS, First dose (after last reorder) on Bluebell 09/16/15 at 1830, Until Discontinued, Administer over 30 Minutes, Indication for (Active or Suspected): Prophylaxis, Restricted Antibiotic: Please indicate the most appropriate choice: ID Approval by Aubrey Horvath Given 09/17/2015 5:49 AM EDT 2 g 100 mL/hr Given 09/16/2015 9:57 PM EDT 2 g 100 mL/hr cefTRIAXone (ROCEPHIN) 2 g vial attach to sodium chloride 0.9% 50 mL Mini-Bag Plus 2 g, Intravenous, EVERY 24 HOURS, First dose on 09/17/15 at 1800, Until Discontinued, Administer over 30 Minutes, To cover bacteremia (group C strep), culture positive in kidney DONOR, Indication for (Active or Suspected): Other (See comment) Given 09/19/2015 5:19 PM EDT 2 g 100 mL/hr Given 09/18/2015 5:40 PM EDT 2 g 100 mL/hr Given 09/17/2015 6:13 PM EDT 2 g 100 mL/hr cefTRIAXone (ROCEPHIN) 2 g vial attach to sodium chloride 0.9% 50 mL Mini-Bag Plus 2 g, Intravenous, EVERY 24 HOURS, First dose (after last modification) on Laura 09/20/15 at 1500, Until Discontinued, Administer over 30 Minutes, To cover bacteremia (group C strep), culture positive in kidney DONOR, Indication for (Active or Suspected): Other (See comment) Given 09/20/2015 2:08 PM EDT 2 g 100 mL/hr diphenhydrAMINE (BENADRYL) injection 50 mg 50 mg, Intravenous, FILLER LEAF CUTTER LONG TO O.R., 1 dose, On Thu09/16/15 at 1015, Routine Given 09/16/2015 11:17 AM EDT 50 mg fentaNYL 50 mcg/mL multi-dose injection 25-50 mcg, Intravenous, EVERY 5 MIN PRN, Starting on Thu09/19/15 at 1326, Until Thu09/19/15 at 1506, Pain, per unit protocol, For use in Interventional Radiology (IR) only for procedural sedation with direct provider supervision and verbal order., Angio/IR (Intra-Procedure), Routine Given 09/19/2015 2:46 PM EDT 25 mcg Given 09/19/2015 2:36 PM EDT 25 mcg Given 09/19/2015 2:25 PM EDT 25 mcg ganciclovir (CYTOVENE) 75 mg in sodium chloride 0.9% 101.5 mL 75 mg, Intravenous, EVERY 24 HOURS, First dose on Thu09/17/15 at 1200, Until Discontinued, Administer over 60 Minutes, Creatinine Clearance less than 25 mL/min., Indication for (Active or Suspected): Prophylaxis New Bag 09/20/2015 12:05 PM EDT 75 mg 101 .5 mL/hr New Bag 09/19/2015 11:54 AM EDT 75 mg 101.5 mL/hr New Bag 09/18/2015 12:08 PM EDT 75 mg 101.5 mL/hr heparin (porcine) subcutaneous injection 5,000 Units 5,000 Units, Subcutaneous, EVERY 12 HOURS SCHEDULED (2 times per day), First dose on Thu09/17/15 at 2100, Until Discontinued, Routine Given 09/18/2015 9:22 PM EDT 5,000 Units Given 09/18/2015 8:44 AM EDT 5,000 Units Given 09/17/2015 8:10 PM EDT 5,000 Units heparin (porcine) subcutaneous injection 5,000 Units 5,000 Units, Subcutaneous, EVERY 8 HOURS SCHEDULED, First dose (after last modification) on Thu09/19/15 at 1400, Until Discontinued, Routine Given 09/20/2015 6:29 AM EDT 5,000 Units Given 09/19/2015 9:00 PM EDT 5,000 Units Given 09/19/2015 4:45 PM EDT 5,000 Units HYDROmorphone (DILAUDID) 1 mg/mL FIELD MERCHANDISER 50 mL Intravenous, FIELD MERCHANDISER ONLY, Starting on Thu09/16/15 at 1545, Until Thu09/17/15 at 1657, Recovery (Recovery-Hospital Unit) New Syringe/Cartridge 09/16/2015 4:03 PM EDT 50 mg HYDROmorphone (DILAUDID) syringe 0.2-0.4 mg 0.2-0.4 mg, Intravenous, EVERY 5 MIN PRN, Pain, Starting on 09/16/15 at 1426, Until 09/16/15 at 1716, For moderate pain (4-6) give: 0.2 mg every 5 minute prn For severe pain (7-10) give: 0.4 mg every 5 minutes prn Maximum dose: 4 mg per hour Hold for respiratory rate less than 10 per minute., PACU Recovery Given 09/16/2015 4:00 PM EDT 0.4 mg Given 09/16/2015 3:17 PM EDT 0.4 mg insulin aspart (NovoLOG) VIAL injection 1-4 Units 1-4 Units, Subcutaneous, 4 TIMES DAILY BEFORE MEALS & NIGHTLY, First dose on Thu09/18/15 at 1130, Until Discontinued, CORRECTION BOLUS Sensitive to insulin [...] no insulin and resume prior schedule. Given 09/20/2015 12:05 PM EDT 1 Units Given 09/19/2015 9:00 PM EDT 2 Units Given 09/19/2015 4:47 PM EDT 1 Units ipratropium-albuterol (DUONEB) 0.5 mg-3 mg(2.5 mg base)/3 mL nebulizer solution 3 mL 3 mL, Nebulization, EVERY 4 HOURS PRN, Starting on Thu09/17/15 at 1554, Until Laura 09/20/15 at 1744, Wheezing, Routine Given 09/19/2015 7:05 AM EDT 3 mLs Given 09/17/2015 4:11 PM EDT 3 mLs levothyroxine (SYNTHROID) tablet 50 mcg 50 mcg, Oral, EVERY MORNING, First dose on Thu09/17/15 at 0600, Until Discontinued, Routine Given 09/20/2015 6:29 AM EDT 50 mcg Given 09/19/2015 5:53 AM EDT 50 mcg Given 09/18/2015 6:00 AM EDT 50 mcg lidocaine (XYLOCAINE) 10 mg/mL (1 %) injection 10 mg 10 mg, Subcutaneous, ONCE, 1 dose, On Thu09/19/15 at 1345, For use in Interventional Radiology (IR) only for procedure with direct provider supervision and verbal order., Angio/IR (Intra-Procedure), Routine Given 09/19/2015 3:05 PM EDT 10 mg magnesium oxide (MAG-OX) tablet 400 mg 400 mg, Oral, 2 TIMES DAILY, First dose on Thu09/18/15 at 0900, Until Discontinued, Routine Given 09/20/2015 8:31 AM EDT 400 mg Given 09/19/2015 8:57 PM EDT 400 mg Given 09/19/2015 8:26 AM EDT 400 mg methylPREDNISolone sodium succinate (PF) (solu-MEDROL) 250 mg in sodium chloride 0.9% 54 mL 250 mg, Intravenous, DAILY, 1 dose, First dose on Thu09/17/15 at 0900, Administer over 30 Minutes, POD #1 If receiving thymoglobulin, give 30 minutes prior to administration of thymoglobulin. Given 09/17/2015 12:23 PM EDT 250 mg 108 mL/hr methylPREDNISolone sodium succinate (PF) (solu-MEDROL) 40 mg/mL injection 40 mg 40 mg, Intravenous, DAILY, 1 dose, First dose on Thu09/20/15 at 0900, POD #4. If receiving thymoglobulin, give 30 minutes prior to administration of thymoglobulin. Given 09/20/2015 8:31 AM EDT 40 mg methylPREDNISolone sodium succinate (PF) (solu-MEDROL) 40 mg/mL injection 80 mg 80 mg, Intravenous, DAILY, 1 dose, First dose on Thu09/19/15 at 0900, POD #3. If receiving thymoglobulin, give 30 minutes prior to administration of thymoglobulin. Given 09/19/2015 8:27 AM EDT 80 mg methylPREDNISolone sodium succinate (PF) (solu-MEDROL) injection 125 mg 125 mg, Intravenous, DAILY, 1 dose, First dose on Thu09/18/15 at 0900, POD #2. If receiving thymoglobulin, give 30 minutes prior to administration of thymoglobulin. Given 09/18/2015 8:44 AM EDT 125 mg meTOPROLOL (LOPRESSOR) injection 5 mg 5 mg, Intravenous, EVERY 20 MIN PRN, 3 doses, Starting on Thu09/16/15 at 1715, Until Laura 09/20/15 at 1744, High Blood Pressure, for Blood Pressure greater than 165/95, Hold for heart rate equal to or less than 60 beats per minute. If BP still greater than 165/95 after 3 doses, then administer DILTiazem. Given 09/18/2015 12:17 PM EDT 5 mg midazolam (PF) (VERSED) 1 mg/mL multi-dose injection 0.5-1 mg 0.5-1 mg, Intravenous, EVERY 5 MIN PRN, Starting on Thu09/19/15 at 1326, Until Thu09/19/15 at 1506, Anxiety, per unit protocol, For use in Interventional Radiology (IR) only for procedural sedation with direct provider supervision and verbal order., Angio/IR (Intra-Procedure), Routine Given 09/19/2015 2:46 PM EDT 0.5 mg Given 09/19/2015 2:36 PM EDT 0.5 mg Given 09/19/2015 2:25 PM EDT 0.5 mg mycophenolate (CELLCEPT) capsule 1,000 mg 1,000 mg, Oral, FILL[employer] LONG TO O.R., 1 dose, On Thu09/16/15 at 1015, DO NOT CRUSH OR OPEN, Day of Surgery (Day of Procedure), STAT Given 09/16/2015 11:11 AM EDT 1,000 mg mycophenolate (CELLCEPT) capsule 750 mg 750 mg, Oral, DAILY, 1 dose, First dose on Thu09/16/15 at 1745, DO NOT CRUSH OR OPEN, Routine Given 09/16/2015 6:06 PM EDT 750 mg mycophenolate (CELLCEPT) capsule 750 mg 750 mg, Oral, 2 TIMES DAILY, First dose on Thu09/17/15 at 0900, Until Discontinued, DO NOT CRUSH OR OPEN, Routine Given 09/20/2015 8:30 AM EDT 750 mg Given 09/19/2015 8:56 PM EDT 750 mg Given 09/19/2015 8:26 AM EDT 750 mg nystatin (MYCOSTATIN) 100,000 unit/mL oral suspension 500,000 Units 500,000 Units (5 mL), Oral, 4 TIMES DAILY, First dose on Thu09/16/15 at 1745, Until Discontinued, Swish and swallow., Routine Given 09/20/2015 12:05 PM EDT 500,000 Units Given 09/20/2015 8:31 AM EDT 500,000 Units Given 09/19/2015 8:57 PM EDT 500,000 Units oxyCODONE (ROXICODONE) immediate release tablet 10 mg 10 mg, Oral, EVERY 4 HOURS PRN, Starting on 09/17/15 at 0932, Until Laura 09/20/15 at 1744, Pain, severe pain (7-10), May give an additional 5 mg in 30 minutes once if pain not relieved., Routine Given 09/20/2015 12:41 PM EDT 10 mg Given 09/17/2015 11:59 PM EDT 10 mg Given 09/17/2015 8:09 PM EDT 10 mg oxyCODONE (ROXICODONE) immediate release tablet 5 mg 5 mg, Oral, EVERY 4 HOURS PRN, Starting on Thu09/17/15 at 0932, Until Laura 09/20/15 at 1744, Pain, mild to moderate pain (1-6), May give an additional 5 mg in 30 minutes once if pain not relieved., Routine Given 09/20/2015 8:39 AM EDT 5 mg Given 09/20/2015 3:58 AM EDT 5 mg Given 09/19/2015 11:46 PM EDT 5 mg pantoprazole (PROTONIX) tablet 40 mg 40 mg, Oral, ONCE, On [place]bell 09/16/15 at 1015, 1 dose, DO NOT CRUSH OR OPEN, Day of Surgery (Day of Procedure) Given 09/16/2015 11:09 AM EDT 40 mg pantoprazole (PROTONIX) tablet 40 mg 40 mg, Oral, DAILY, First dose on Thu09/16/15 at 1800, Until Discontinued, DO NOT CRUSH OR OPEN If unable to take PO, may give IV Given 09/20/2015 8:31 AM EDT 40 mg Given 09/19/2015 8:25 AM EDT 40 mg Given 09/18/2015 8:44 AM EDT 40 mg polyethylene glycol (MIRALAX) packet 17 g 17 g, Oral, DAILY, First dose on Thu09/17/15 at 1315, Until Discontinued, Routine Given 09/19/2015 8:28 AM EDT 17 g Given 09/18/2015 8:44 AM EDT 17 g Given 09/17/2015 1:15 PM EDT 17 g sodium chloride 0.45% infusion 0-500 mL/hr, Intravenous, EVERY 2 HOURS, 12 doses, First dose on Thu09/16/15 at 1545, Last dose on Thu09/17/15 at 1345, Replace each milliliter of urine + LEEANNA output with equal volume. Max dose 500 mL/hr Rate/Dose Change 09/17/2015 4:00 PM EDT 0 mL/hr 0 mL/hr Continued Bag 09/17/2015 1:45 PM EDT 5 mL/hr 5 mL/hr Continued Bag 09/17/2015 11:45 AM EDT 7 mL/hr 7 mL/hr sodium chloride 0.45% infusion 0-500 mL/hr, Intravenous, EVERY 2 HOURS, 12 doses, First dose on Thu09/17/15 at 1545, Last dose on Thu09/18/15 at 1345, Replace each milliliter of urine + LEEANNA output with 0.5 mL. Max dose 500 mL/hr Rate/Dose Change 09/18/2015 7:44 AM EDT 130 mL/hr 130 mL/hr New Bag 09/18/2015 5:45 AM EDT 63 mL/hr 63 mL/hr Continued Bag 09/18/2015 3:45 AM EDT 56 mL/hr 56 mL/hr sodium chloride 0.9% 1,000 mL IV bolus Intravenous, ONCE, 1 dose, On Thu09/17/15 at 0100 Given 09/17/2015 12:42 AM EDT sodium chloride 0.9% 500 mL IV bolus Intravenous, ONCE, 1 dose, On Thu09/17/15 at 1215 Given 09/17/2015 12:22 PM EDT sodium chloride 0.9% infusion 50 mL/hr, Intravenous, CONTINUOUS, Starting on Thu09/16/15 at 1545, Until Thu09/18/15 at 0842, Recovery (Recovery-Hospital Unit) Rate/Dose Verify 09/18/2015 8:00 AM EDT 50 mL/hr 50 mL/hr New Bag 09/18/2015 5:33 AM EDT 50 mL/hr 50 mL/hr Rate/Dose Verify 09/17/2015 8:00 PM EDT 50 mL/hr 50 mL/h r sodium chloride 0.9% infusion 50 mL/hr, Intravenous, CONTINUOUS, Starting on Thu09/18/15 at 1030, Until Thu09/19/15 at 0714 New Bag 09/19/2015 12:37 AM EDT 50 mL/hr 50 mL/hr New Bag 09/18/2015 10:44 AM EDT 50 mL/hr 50 mL/hr sodium chloride 0.9% infusion 50 mL/hr, Intravenous, CONTINUOUS, Starting on Thu09/19/15 at 0915, Until Thu09/19/15 at 1622 Continued Bag 09/19/2015 10:00 AM EDT 50 mL/hr 50 mL/hr tacrolimus (PROGRAF) capsule 1 mg 1 mg, Oral, 2 TIMES DAILY, First dose on Thu09/18/15 at 2100, Until Discontinued, Routine Given 09/20/2015 8:31 AM EDT 1 mg Given 09/19/2015 8:56 PM EDT 1 mg Given 09/19/2015 8:26 AM EDT 1 mg tamsulosin (FLOMAX) ER capsule 0.4 mg 0.4 mg, Oral, DAILY, First dose on Thu09/19/15 at 1100, Until Discontinued, DO NOT CRUSH OR OPEN, Routine Given 09/20/2015 8:31 AM EDT 0.4 mg Given 09/19/2015 11:54 AM EDT 0.4 mg vancomycin 2 g in sodium chloride 0.9% 500 mL 2,000 mg (2 g), Intravenous, ONCE, 1 dose, On Thu09/16/15 at 1900, Give over 60-90 minutes. Do not exceed [...] MAR for scheduled level., STAT Given 09/16/2015 6:16 PM EDT 2,000 mg documented in this encounter Active and Recently Administered Medications Times are shown in EDT. Scheduled Medication Order 09/18/2015 09/19/2015 09/20/2015 atorvastatin (LIPITOR) tablet 10 mg (CANCELED) 10 mg, Oral, EVERY EVENING, First dose on Thu09/19/15 at 1700, Until Discontinued, Routine 1647 (Given - Provider: Tamela Mckeon, JADEN) basiliximab (SIMULECT) 20 mg in sodium chloride 0.9% 55 mL (COMPLETED) 20 mg, Intravenous, ONCE, 1 dose, On Laura 09/20/15 at 0800, Given in the morning on POD# 4.(Check with transplant attending). 0842 (New Bag - Provider: Pauline Miles RN) bisacodyl (DULCOLAX) EC tablet 10 mg (CANCELED) 10 mg, Oral, 2 TIMES DAILY, First dose on Thu09/16/15 at 2100, Until Discontinued, DO NOT CRUSH OR OPEN, Routine 0844 (Given - Provider: Sonu Lara RN)2120 (Given - Provider: Keyana Moy RN) 08 (Given - Provider: Tamela Mckeon, JADEN)2056 (Given - Provider: Margarette Mota RN) 829 (Given - Provider: Pauline Miles RN) BUpivacaine-EPINEPHrine 0.25 %-1:200,000 injection 20 mL (COMPLETED) 20 mL (50 mg), Infiltration, ONCE, 1 dose, On Thu09/19/15 at 1345, For use in Interventional Radiology (IR) only for procedural sedation with direct provider supervision and verbal order., Angio/IR (Intra-Procedure), Routine 1430 (Given - Provider: Therese Carpio RN - Comment: Given by BANK ADVISOR.) carvedilol (COREG) tablet 12.5 mg (CANCELED) 12.5 mg, Oral, DAILY WITH DINNER, First dose on Tu09/18/15 at 1700, Until Discontinued, Routine 1735 (Given - Provider: Pauline Miles, JADEN) 1647 (Given - Provider: Tamela Mckeon, JADEN) cefTRIAXone (ROCEPHIN) 2 g vial attach to sodium chloride 0.9% 50 mL Mini-Bag Plus (CANCELED) 2 g, Intravenous, EVERY 24 HOURS, First dose on Thu09/17/15 at 1800, Until Discontinued, Administer over 30 Minutes, To cover bacteremia (group C strep), culture positive in kidney DONOR, Indication for (Active or Suspected): Other (See comment) 1740 (Given - Provider: Pauline Miles, JADEN) 1719 (Given - Provider: Tamela Mckeon, JADEN) cefTRIAXone (ROCEPHIN) 2 g vial attach to sodium chloride 0.9% 50 mL Mini-Bag Plus (CANCELED) 2 g, Intravenous, EVERY 24 HOURS, First dose (after last modification) on Laura 09/20/15 at 1500, Until Discontinued, Administer over 30 Minutes, To cover bacteremia (group C strep), culture positive in kidney DONOR, Indication for (Active or Suspected): Other (See comment) 1408 (Given - Provider: Pauline Miles RN) ganciclovir (CYTOVENE) 75 mg in sodium chloride 0.9% 101.5 mL (CANCELED) 75 mg, Intravenous, EVERY 24 HOURS, First dose on Thu09/17/15 at 1200, Until Discontinued, Administer over 60 Minutes, Creatinine Clearance less than 25 mL/min., Indication for (Active or Suspected): Prophylaxis 1208 (New Bag - Provider: Sonu Lara RN) 1154 (New Bag - Provider: Sandra Dodd RN) 1205 (New Bag - Provider: Pauline Miles RN) heparin (porcine) subcutaneous injection 5,000 Units (CANCELED) 5,000 Units, Subcutaneous, EVERY 12 HOURS SCHEDULED (2 times per day), First dose on Thu09/17/15 at 2100, Until Discontinued, Routine 0844 (Given - Provider: Sonu Lara RN)2122 (Given - Provider: Keyana Moy RN) heparin (porcine) subcutaneous injection 5,000 Units (CANCELED) 5,000 Units, Subcutaneous, EVERY 8 HOURS SCHEDULED, First dose (after last modification) on Thu09/19/15 at 1400, Until Discontinued, Routine 1645 (Given - Provider: Tamela Mckeon, JADEN)2100 (Given - Provider: Margarette Mota, JADEN) 0629 (Given - Provider: Margarette Mota, JADEN)1400 (Not Given - Provider: Pauline Miles RN - Reason: Patient/family refused) insulin aspart (NovoLOG) VIAL injection 1-4 Units (CANCELED)(Linked Group 1) 1-4 Units, Subcutaneous, 4 TIMES DAILY BEFORE MEALS & NIGHTLY, First dose on Thu09/18/15 at 1130, Until Discontinued, CORRECTION BOLUS Sensitive to insulin [...] give no insulin and resume prior schedule. 1217 (Given - Provider: Sonu Lara, JADEN)1554 (Given - Provider: Sonu Lara, RN)2116 (Given - Provider: Keyana Moy RN) 0824 (Given - Provider: Tamela Mckeon RN)1130 (Not Given - Provider: Sandra Dodd RN - Reason: Order parameters not met)1647 (Given - Provider: Tamela Mckeon RN)2100 (Given - Provider: Margarette Mota RN) 0730 (Not Given - Provider: Pauline Miles RN - Reason: Order parameters not met)1205 (Given - Provider: Pauline Miles RN) levothyroxine (SYNTHROID) tablet 50 mcg (CANCELED) 50 mcg, Oral, EVERY MORNING, First dose on Thu09/17/15 at 0600, Until Discontinued, Routine 0600 (Given - Provider: Isela Clya RN) 0553 (Given - Provider: Keyana Moy RN) 0629 (Given - Provider: Margarette Mota RN) lidocaine (XYLOCAINE) 10 mg/mL (1 %) injection 10 mg (COMPLETED) 10 mg, Subcutaneous, ONCE, 1 dose, On Thu09/19/15 at 1345, For use in Interventional Radiology (IR) only for procedure with direct provider supervision and verbal order., Angio/IR (Intra-Procedure), Routine 1345 (Due)1505 (Given - Provider: Therese Carpio RN - Comment: Given by BANK ADVISOR.) magnesium oxide (MAG-OX) tablet 400 mg (CANCELED) 400 mg, Oral, 2 TIMES DAILY, First dose on Thu09/18/15 at 0900, Until Discontinued, Routine 912 (Given - Provider: Sonu Lara RN)2117 (Given - Provider: Keyana Moy RN) 825 (Given - Provider: Tamela Mckeon, JADEN)2056 (Given - Provider: Margarette Mota, JADEN) 830 (Given - Provider: Pauline Miles RN) methylPREDNISolone sodium succinate (PF) (solu-MEDROL) 40 mg/mL injection 40 mg (COMPLETED)(Linked Group 2) 40 mg, Intravenous, DAILY, 1 dose, First dose on Thu09/20/15 at 0900, POD #4. If receiving thymoglobulin, give 30 minutes prior to administration of thymoglobulin. 830 (Given - Provider: Pauline Miles RN) methylPREDNISolone sodium succinate (PF) (solu-MEDROL) 40 mg/mL injection 80 mg (COMPLETED)(Linked Group 2) 80 mg, Intravenous, DAILY, 1 dose, First dose on Thu09/19/15 at 0900, POD #3. If receiving thymoglobulin, give 30 minutes prior to administration of thymoglobulin. 826 (Given - Provider: Tamela Mckeon RN) methylPREDNISolone sodium succinate (PF) (solu-MEDROL) injection 125 mg (COMPLETED)(Linked Group 2) 125 mg, Intravenous, DAILY, 1 dose, First dose on Thu09/18/15 at 0900, POD #2. If receiving thymoglobulin, give 30 minutes prior to administration of thymoglobulin. 843 (Given - Provider: Sonu Lara RN) mycophenolate (CELLCEPT) capsule 750 mg (CANCELED)(Linked Group 3) 750 mg, Oral, 2 TIMES DAILY, First dose on Thu09/17/15 at 0900, Until Discontinued, DO NOT CRUSH OR OPEN, Routine 843 (Given - Provider: Sonu Lara RN)2117 (Given - Provider: Keyana Moy RN) 825 (Given - Provider: Tamela Mckeon, JADEN)2055 (Given - Provider: Margarette Mota, JADEN) 829 (Given - Provider: Pauline Miles RN) nystatin (MYCOSTATIN) 100,000 unit/mL oral suspension 500,000 Units (CANCELED) 500,000 Units (5 mL), Oral, 4 TIMES DAILY, First dose on Thu09/16/15 at 1745, Until Discontinued, Swish and swallow., Routine 0844 (Given - Provider: Sonu Lara, RN)1518 (Given - Provider: Sonu Lara, RN)1742 (Given - Provider: Pauline Miles, JADEN)2122 (Given - Provider: Keyana Moy RN) 0827 (Given - Provider: Tamela Mckeon, JADEN)1300 (Not Given - Provider: Tamela Mckeon, JADEN - Reason: Transfer to a Procedural area)1647 (Given - Provider: Tamela Mckeon, JADEN)2057 (Given - Provider: Margarette Mota RN) 0831 (Given - Provider: Pauline Miles, JADEN)1205 (Given - Provider: Pauline Miles, JADEN) pantoprazole (PROTONIX) tablet 40 mg (CANCELED)(Linked Group 4) 40 mg, Oral, DAILY, First dose on Thu09/16/15 at 1800, Until Discontinued, DO NOT CRUSH OR OPEN If unable to take PO, may give IV 0844 (Given - Provider: Sonu Lara RN) 0825 (Given - Provider: Tamela Mckeon, JADEN) 0831 (Given - Provider: Pauline Miles, JADEN) polyethylene glycol (MIRALAX) packet 17 g 17 g, Oral, DAILY, First dose on Thu09/17/15 at 1315, Until Discontinued, Routine 0844 (Given - Provider: Sonu Lara RN) 0828 (Given - Provider: Tamela Mckeon, JADEN) 0900 (Not Given - Provider: Pauline Miles RN - Reason: Patient/family refused) sodium chloride 0.45% infusion (CANCELED)(Linked Group 5) 0-500 mL/hr, Intravenous, EVERY 2 HOURS, 12 doses, First dose on Thu09/17/15 at 1545, Last dose on Thu09/18/15 at 1345, Replace each milliliter of urine + LEEANNA output with 0.5 mL. Max dose 500 mL/hr 0145 (Continued Bag - Provider: Isela Clay RN)0345 (Continued Bag - Provider: Isela Clay RN)0545 (New Bag - Provider: Isela Clay RN)0744 (Rate/Dose Change - Provider: Sonu Lara, RN)0745 (Not Given - Provider: Sonu Lara RN - Reason: Order parameters not met) tacrolimus (PROGRAF) capsule 1 mg (CANCELED) 1 mg, Oral, 2 TIMES DAILY, First dose on Thu09/18/15 at 2100, Until Discontinued, Routine 211 (Given - Provider: Keyana Moy, JADEN) 08 (Given - Provider: Tamela Mckeon, JADEN)205 (Given - Provider: Margarette Mota, JADEN) 0831 (Given - Provider: Pauline Miles, JADEN) tamsulosin (FLOMAX) ER capsule 0.4 mg (CANCELED) 0.4 mg, Oral, DAILY, First dose on Thu09/19/15 at 1100, Until Discontinued, DO NOT CRUSH OR OPEN, Routine 1154 (Given - Provider: Sandra Dodd RN) 0831 (Given - Provider: Pauline Miles, JADEN) Continuous Medication Order 09/18/2015 09/19/2015 09/20/2015 sodium chloride 0.9% infusion (CANCELED) 50 mL/hr, Intravenous, CONTINUOUS, Starting on Thu09/16/15 at 1545, Until Thu09/18/15 at 0842, Recovery (Recovery-Hospital Unit) 0533 (New Bag - Provider: Isela Clay RN)0800 (Rate/Dose Verify - Provider: Sonu Lara, RN) sodium chloride 0.9% infusion (CANCELED) 50 mL/hr, Intravenous, CONTINUOUS, Starting on Thu09/18/15 at 1030, Until Thu09/19/15 at 0714 1044 (New Bag - Provider: Sonu Lara, JADEN) 0037 (New Bag - Provider: Keyana Moy RN) sodium chloride 0.9% infusion (CANCELED) 50 mL/hr, Intravenous, CONTINUOUS, Starting on Thu09/19/15 at 0915, Until Thu09/19/15 at 1622 1000 (Continued Bag - Provider: Sandra Dodd, JADEN)1638 (Stopped - Provider: Tamela Mckeon, JADEN) PRN Medication Order 09/18/2015 09/19/2015 09/20/2015 acetaminophen (TYLENOL) tablet 650 mg 650 mg, Oral, EVERY 4 HOURS PRN, Starting on 09/16/15 at 1516, Until Laura 09/20/15 at 1744, Pain, Maximum dose of acetaminophen is 4000 mg from all sources in 24 hours., Routine fentaNYL 50 mcg/mL multi-dose injection (CANCELED) 25-50 mcg, Intravenous, EVERY 5 MIN PRN, Starting on 09/19/15 at 1326, Until Thu09/19/15 at 1506, Pain, per unit protocol, For use in Interventional Radiology (IR) only for procedural sedation with direct provider supervision and verbal order., Angio/IR (Intra-Procedure), Routine 1425 (Given - Provider: Therese Carpio RN)1436 (Given - Provider: Therese Carpio RN)1446 (Given - Provider: Therese Carpio RN) ipratropium-albuterol (DUONEB) 0.5 mg-3 mg(2.5 mg base)/3 mL nebulizer solution 3 mL (CANCELED) 3 mL, Nebulization, EVERY 4 HOURS PRN, Starting on 09/17/15 at 1554, Until Laura 09/20/15 at 1744, Wheezing, Routine 0705 (Given - Provider: Keyana Moy RN) meTOPROLOL (LOPRESSOR) injection 5 mg (CANCELED) 5 mg, Intravenous, EVERY 20 MIN PRN, 3 doses, Starting on 09/16/15 at 1715, Until Laura 09/20/15 at 1744, High Blood Pressure, for Blood Pressure greater than 165/95, Hold for heart rate equal to or less than 60 beats per minute. If BP still greater than 165/95 after 3 doses, then administer DILTiazem. 1217 (Given - Provider: Sonu Lara, JADEN) midazolam (PF) (VERSED) 1 mg/mL multi-dose injection 0.5-1 mg (CANCELED) 0.5-1 mg, Intravenous, EVERY 5 MIN PRN, Starting on Thu09/19/15 at 1326, Until Thu09/19/15 at 1506, Anxiety, per unit protocol, For use in Interventional Radiology (IR) only for procedural sedation with direct provider supervision and verbal order., Angio/IR (Intra-Procedure), Routine 1425 (Given - Provider: Therese Carpio RN)1436 (Given - Provider: Therese Carpio, RN)1446 (Given - Provider: Therese Carpio RN) oxyCODONE (ROXICODONE) immediate release tablet 10 mg (CANCELED)(Linked Group 6) 10 mg, Oral, EVERY 4 HOURS PRN, Starting on 09/17/15 at 0932, Until Laura 09/20/15 at 1744, Pain, severe pain (7-10), May give an additional 5 mg in 30 minutes once if pain not relieved., Routine 1012 (See Alternative - Provider: Sonu Lara RN) 0845 (See Alternative - Provider: Tamela Mckeon RN)1319 (See Alternative - Provider: Tamela Mckeon RN)2001 (See Alternative - Provider: Margarette Mota, JADEN)2346 (See Alternative - Provider: Margarette Mota RN) 0358 (See Alternative - Provider: Margarette Mota RN)0839 (See Alternative - Provider: Pauline Miles, JADEN)1241 (Given - Provider: Pauline Miles, JADEN) oxyCODONE (ROXICODONE) immediate release tablet 5 mg (CANCELED)(Linked Group 6) 5 mg, Oral, EVERY 4 HOURS PRN, Starting on 09/17/15 at 0932, Until Laura 09/20/15 at 1744, Pain, mild to moderate pain (1-6), May give an additional 5 mg in 30 minutes once if pain not relieved., Routine 1012 (Given - Provider: Sonu Lara RN) 0845 (Given - Provider: Tamela Mckeon RN)1319 (Given - Provider: Tamela Mckeon RN - Comment: on way to IR)2001 (Given - Provider: Margarette Mota RN)2346 (Given - Provider: Margarette Mota, JAEDN) 0354 (Given - Provider: Margarette Mota, JADEN)0835 (Given - Provider: Pauline Miles, RN)1241 (See Alternative - Provider: Pauline Miles, RN) Linked Groups Order Group 1: POCT Fingerstick Glucose (CANCELED) Routine, 4 TIMES DAILY BEFORE MEALS & AT BEDTIME, First occurrence on Thu09/18/15 at 1100, Until Specified, Consider choosing FOUR TIMES A DAY BEFORE MEALS AND AT BEDTIME as frequency for: Patients who have a good hypoglycemia awareness And insulin aspart (NovoLOG) VIAL injection 1-4 Units (CANCELED)Jump to med 1-4 Units, Subcutaneous, 4 TIMES DAILY BEFORE MEALS & NIGHTLY, First dose on Thu09/18/15 at 1130, Until Discontinued, CORRECTION BOLUS Sensitive to insulin [...] give no insulin and resume prior schedule. Group 2: methylPREDNISolone sodium succinate (PF) (solu-MEDROL) 250 mg in sodium chloride 0.9% 54 mL (COMPLETED) 250 mg, Intravenous, DAILY, 1 dose, First dose on Thu09/17/15 at 0900, Administer over 30 Minutes, POD #1 If receiving thymoglobulin, give 30 minutes prior to administration of thymoglobulin. Followed by methylPREDNISolone sodium succinate (PF) (solu-MEDROL) injection 125 mg (COMPLETED)Jump to med 125 mg, Intravenous, DAILY, 1 dose, First dose on Thu09/18/15 at 0900, POD #2. If receiving thymoglobulin, give 30 minutes prior to administration of thymoglobulin. Followed by methylPREDNISolone sodium succinate (PF) (solu-MEDROL) 40 mg/mL injection 80 mg (COMPLETED)Jump to med 80 mg, Intravenous, DAILY, 1 dose, First dose on Thu09/19/15 at 0900, POD #3. If receiving thymoglobulin, give 30 minutes prior to administration of thymoglobulin. Followed by methylPREDNISolone sodium succinate (PF) (solu-MEDROL) 40 mg/mL injection 40 mg (COMPLETED)Jump to med 40 mg, Intravenous, DAILY, 1 dose, First dose on Laura 09/20/15 at 0900, POD #4. If receiving thymoglobulin, give 30 minutes prior to administration of thymoglobulin. Followed by predniSONE (DELTASONE) tablet 20 mg (CANCELED) 20 mg, Oral, DAILY, First dose on Thu09/21/15 at 0900, Until Discontinued, POD #5. If receiving thymoglobulin, give 30 minutes prior to administration of thymoglobulin., Routine Group 3: mycophenolate (CELLCEPT) capsule 750 mg (COMPLETED) 750 mg, Oral, DAILY, 1 dose, First dose on Thu09/16/15 at 1745, DO NOT CRUSH OR OPEN, Routine Followed by mycophenolate (CELLCEPT) capsule 750 mg (CANCELED)Jump to med 750 mg, Oral, 2 TIMES DAILY, First dose on Thu09/17/15 at 0900, Until Discontinued, DO NOT CRUSH OR OPEN, Routine Group 4: pantoprazole (PROTONIX) tablet 40 mg (CANCELED)Jump to med 40 mg, Oral, DAILY, First dose on Thu09/16/15 at 1800, Until Discontinued, DO NOT CRUSH OR OPEN If unable to take PO, may give IV Or pantoprazole (PROTONIX) injection 40 mg (CANCELED) 40 mg, Intravenous, DAILY, First dose on Thu09/16/15 at 1800, Until Discontinued, Reconstitute with 10 mL of normal saline to a concentration of 4 mg/mL and infuse slowly over 2 minutes., Routine Group 5: sodium chloride 0.45% infusion (CANCELED) 0-500 mL/hr, Intravenous, EVERY 2 HOURS, 12 doses, First dose on Thu09/16/15 at 1545, Last dose on Thu09/17/15 at 1345, Replace each milliliter of urine + LEEANNA output with equal volume. Max dose 500 mL/hr Followed by sodium chloride 0.45% infusion (CANCELED)Jump to med 0-500 mL/hr, Intravenous, EVERY 2 HOURS, 12 doses, First dose on Thu09/17/15 at 1545, Last dose on Thu09/18/15 at 1345, Replace each milliliter of urine + LEEANNA output with 0.5 mL. Max dose 500 mL/hr Group 6: oxyCODONE (ROXICODONE) immediate release tablet 5 mg (CANCELED)Jump to med 5 mg, Oral, EVERY 4 HOURS PRN, Starting on 09/17/15 at 0932, Until Laura 09/20/15 at 1744, Pain, mild to moderate pain (1-6), May give an additional 5 mg in 30 minutes once if pain not relieved., Routine Or oxyCODONE (ROXICODONE) immediate release tablet 10 mg (CANCELED)Jump to med 10 mg, Oral, EVERY 4 HOURS PRN, Starting on 09/17/15 at 0932, Until Laura 09/20/15 at 1744, Pain, severe pain (7-10), May give an additional 5 mg in 30 minutes once if pain not relieved., Routine documented in this encounter Care Teams Grade Teacher Relationship Specialty Start Date End Date Albania Nunez DO [address] [place] [address] [address] [place] [address] PCP - General 09/03/12 03/17/22 Ruchi Valles RN Nurse Clinic Transplant Surgery 07/30/15 documented as of this encounter
--- OUTSIDE RECORDS SUMMARY | 2024-02-14 11:37 | XMS_ITS | Encounter Summary ---
[facility] [place] [address] Care Team Providers Care Data Management Consultant Name Role Phone Urbano Denis DO Primary Care Provider Encounter Details Date Type Department Care Team (Late st Contact Info) Description 09/07/2015 Abstract [place] [address] Ellen Foote RN Social History Tobacco Use Types Packs/Day [...] AM EDT Hospital Encounter Non-Invasive [place] [address] Arrived documented as of this encounter Visit Diagnoses Not on filedocumented in this encounter Care Teams Data Management Consultant Relationship Specialty Start Date End Date Urbano Denis DO [address] [place] [address] PCP - General 09/03/12 03/17/22 Hai STANLEY,Ruchi Nurse Clinic Transplant Surgery 07/30/15 documented as of this encounter
--- OUTSIDE RECORDS SUMMARY | 2024-02-14 11:37 | XMS_ITS | Encounter Summary ---
Author Organization [facility] [place] [address] Care Team Providers Care Commercial Account Executive Name Role Phone Urbano Denis DO Primary Care Provider Encounter Details Date Type Department Care Team (Late st Contact Info) Description 07/17/2015 4:00 PM EST Office Visit [place] [address] [facility] [place] [address] ESRD (end stage renal disease) Social History Tobacco Use Types Packs/Day Years [...] Sign Reading Time Taken Comments Blood Pressure 122/62 07/17/2015 4:00 PM EST Pulse 64 07/17/2015 4:00 PM EST Temperature - - Respiratory Rate - - Oxygen Saturation - - Inhaled Oxygen Concentration - - Weight 99.8 kg (220 lb) 07/17/2015 4:00 PM EST Height 177.8 cm (5' 10) 07/17/2015 4:00 PM EST Body Mass Index 31.57 07/17/2015 4:00 PM EST documented in this encounter Progress Notes * Larry Larkin MD - 07/19/2015 7:21 AM EST Initial Evaluation: Transplantation Date: 07/19/2015 Patient: Cody Bolden History of Present Illness: Mr. Cody Bolden is an 64 y.o. male. Reason for referral: Evaluation for Kidney Transplantation. Yash is a very pleasant dialysis dependant male with a history of hep C infection. His renal disease is presumably due to hypertension. He has no evidence of sequale from his hep C and wasrecently evaluated and cleared by hepatology using a fibroscan. He is interested in proceeding withtransplantation. 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 Problem List: Patient Active Problem List Diagnosis [...] I10 ??? Hepatitis C virus infection B19.20 Past Medical History: Past Medical History Diagnosis [...] EXTREMITY performed by Que Amaro MD at [facility] MAIN OR FAMILY HISTORY: No family history on file. SOCIAL HISTORY: History Substance Use Topics ??? Smoking status: Former Smoker Types: Cigars ??? Smokeless tobacco: Never Used Comment: cigars, only sometimes ??? Alcohol Use: No Visit Vitals: BP 122/62 mmHg Pulse 64 Ht 177.8 cm (5' 10) Wt 99.791 kg (220 lb) BMI 31.57 kg/m2 Diagnoses: No diagnosis found. Allergies: Review of patient's allergies indicates no known allergies. Current Meds: Scheduled Meds: Current Outpatient Prescriptions Medication Sig Dispense [...] capsule Take 20 mg by mouth daily. No current facility-administered medications for this visit. Labs: Lab Results Component Value Date CREATININE 4.29* 05/16/2015 K 4.4 05/16/2015 GLUCOSE 115 05/16/2015 HCT 34.4* 05/16/2015 WBC 7.4 05/16/2015 ROS: Review of Systems Constitutional: Positive for fatigue. Negative for fever and chills. Respiratory: Negative for shortness of breath and stridor. Cardiovascular: Negative for leg swelling. Gastrointestinal: Negative for constipation. Genitourinary: Negative for hematuria. Neurological: Negative for tremors. Psychiatric/Behavioral: Negative for confusion. Body mass index is 31.57 kg/(m^2). Physical Exam: Physical Exam Constitutional: He is oriented to person, place, and time. He appears well- developed and well-nourished. HENT: Head: Normocephalic. Neck: Normal range of motion. Cardiovascular: Normal rate and normal heart sounds. No murmur heard. Pulmonary/Chest: Effort normal and breath sounds normal. Abdominal: Soft. Bowel sounds are normal. He exhibits no distension. There is no tenderness. Musculoskeletal: Normal range of motion. He exhibits no edema. Neurological: He is alert and oriented to person, place, and time. Skin: Skin is warm and dry. Psychiatric: He has a normal mood and affect. His behavior is normal. ABIs: 1.1 R, 1.0 L DSE 06/2015: IMPRESSION: Normal dobutamine stress echocardiogram. There is no echocardiographic evidence of ischemia at this level of stress. Impression/Recommendations: Excellent candidate for renal transplant. I would favor listing him prior to treatment for his hepatitis C and then accepting a hep C organ if offered. I think we can get him transplanted quickly andthen proceed with treatment after transplant. We will AVOID Campath induction. 1. Diagnostic testing: Colonoscopy needed 2. Additional evaluation: no Counseling The advantages and disadvantages of transplantation were reviewed with Mr. Bolden. We reviewed the operative procedure and potential complications, including the risks of bleeding, infection, rejection, disease transmission, and the need for re-operation. I addressed issues of post-operative recovery and follow-up. Lastly I discussed the need for life long immunosuppressive therapy and the riskassociated with this treatment. He appears to have an excellent understanding of his medical condition and the transplant process. MD: LARRY LARKIN MD documented in this encounter Plan of Treatment Upcoming Encounters Date Type Department Care Team (Late st Contact Info) Description 04/15/2024 10:00 AM EDT Hospital Encounter Non-Invasive [place] [address] Arrived documented as of this encounter Visit Diagnoses Diagnosis ESRD (end stage renal disease) End stage renal disease documented in this encounter Care Teams Commercial Account Executive Relationship Specialty Start Date End Date Urbano Denis DO [address] [place] [address] [address] [place] [address] PCP - General 09/03/12 03/17/22 documented as of this encounter
--- OUTSIDE RECORDS SUMMARY | 2024-02-14 11:37 | XMS_ITS | Encounter Summary ---
[place] [address] Care Team Providers Care Automatic Car Wash Attendant Name Role Phone Urbano Denis DO Primary Care Provider + [phone] Reason for Referral * Diagnostic Test (Routine) - Closed Specialty Diagnoses / Procedures Referred By Contac t Referred To Contact Radiology Diagnoses ESRD on dialysis Procedures IR line/tube removal recovery room- Jaz Gregorio MD [facility] [address] [place] [address] Referral ID Status Reason Start Date Expiration Date V isits Requested Visits Authorized [id number] Closed Specialty Service Requested 07/18/2015 07/17/2016 1 1 Reason for Visit * Diagnostic Test (Routine) - Closed Specialty Diagnoses / Procedures Referred By Contac t Referred To Contact Radiology Diagnoses ESRD on dialysis Procedures IR line/tube removal recovery room- Jaz Gregorio MD [facility] [place] [address] [place] [address] Referral ID Status Reason Start Date Expiration Date V isits Requested Visits Authorized [id number] Closed Specialty Service Requested 07/18/2015 07/17/2016 1 1 Encounter Details Date Type Department Care Team (Latest Contact Info) Description 07/24/2015 12:25 PM EST - 07/24/2015 11:59 PM EST Hospital Encounter Radiology at [facility] [place] [address] Jomar Franco MD [facility] [place] [address] ESRD on dialysis Discharge Disposition: Home Social History Tobacco Use [...] on file documented as of this encounter Discharge Instructions * Discharge Instructions* Selena Estrada RN - 07/24/2015 2:05 PM EST [facility] Vascular and Interventional Radiology Discharge Instructions For Your Puncture Site Activity and Diet: ??? You may resume your normal activities tomorrow. [...] is during regular office hours, please call [phone]. If it is after regular office hours, or on weekends or holidays, please call [phone] and ask to speak to the Quarter Supervisor extension professor for Interventional Radiology. Revised 07/20/15 documented in this encounter Medications at Time of Discharge Medication Sig Dispensed Refills Start Date End Date levothyroxine (SYNTHROID) 50 mcg Tablet Take 75 mcg by mouth daily. 09/25/2015 clopidogrel (PLAVIX) 75 mg Tablet Take 1 tablet by mouth daily. 30 tablet 0 05/12/2015 05/28/2016 hydrALAZINE (APRESOLINE) 25 mg Tablet Take 75 mg by mouth 2 times daily. 09/20/2015 magnesium oxide (MAG-OX) 400 mg Tablet Take 400 mg by mouth daily. 09/20/2015 carvedilol (COREG) 6.25 mg Tablet Take 12.5 mg by mouth 2 times daily (with meals). 10/05/2015 furosemide (LASIX) 80 mg Tablet Take 40 mg by mouth 2 times daily. 09/20/2015 spironolactone (ALDACTONE) 25 mg Tablet Take 25 mg by mouth daily. 09/20/2015 pravastatin (PRAVACHOL) 20 mg Tablet Take 20 mg by mouth daily. 09/25/2015 calcitRIOL (ROCALTROL) 0.25 mcg Capsule Take 1 capsule by mouth three times a week. 60 tablet 3 07/12/2014 09/20/2015 ONE TOUCH ULTRA TEST Strip 0 04/28/2014 01/28/2016 ONE TOUCH ULTRAMINI Kit 0 04/28/201401/04 ONE TOUCH DELICA LANCETS 30 gauge Misc 0 04/28/20142015 doxazosin (CARDURA) 4 mg Tablet Take 1 tablet by mouth nightly. 90 tablet 3 05/22/2014 10/05/2015 omeprazole (PRILOSEC) 20 mg capsule Take 20 mg by mouth daily. 09/20/2015 documented as of this encounter Progress Notes * Selena Estrada RN - 07/24/2015 2:02 PM EST [facility] Vascular and Interventional Radiology Discharge Instructions For Your Puncture Site Activity and Diet: ??? You may resume your normal activities tomorrow. ??? Resume your usual diet Bandage: There is a sterile dressing over [...] is during regular office hours, please call [phone]. If it is after regular office hours, or on weekends or holidays, please call [phone] and ask to speak to the Quarter Supervisor extension professor for Interventional Radiology. You may resume your regular diet as tolerated. documented in this encounter Plan of Treatment Upcoming Encounters Date Type Department Care Team (Late st Contact Info) Description 04/15/2024 10:00 AM EDT Hospital Encounter Non-[place]vasive [place] [address] Arrived documented as of this encounter Procedures Procedure Name Priority Date/Time Associated Diagnosis Comments IR LINE OR TUBE REMOVAL IN RECOVERY ROOM Routine 07/24/2015 1:55 PM EST ESRD on dialysis documented in this encounter Results * IR line/tube removal recovery room- [facility] (07/24/2015 1:55 PM EST) Anatomical Region Laterality Modality X-Ray Angiograph y Narrative 07/24/2015 2:58 PM EST VIR PROCEDURE NOTE Name: ??Cody Bolden Date of : 1950 Procedure: Tunneled Hemodialysis catheter removal. Indication for Procedure: Mr. Bolden is a 64-yo male with a history of CKD who is in need of dialysis access. Now has working LUE fistula. No longer needs tunneled HD catheter which was placed in [place]. Technique: ??The patient was positioned supine on the bed. The right neck base and upper chest with existing hemodialysis catheter was prepped and draped. Lidocaine 1% was injected subcutaneously around the catheter cuff for local anesthesia. ??The catheter cuff was dissected free using both blunt dissection as well as after performing a 5mm cutdown over the cuff which was deep within the tunnel. ??The catheter was then withdrawn and removed without incident. A deep 2-0 dissolvable suture and skin glue was used to close the cutdown incision. A gauze pad and Tegaderm were placed over the tunnel site. Medications: Lidocaine 1% 10 mL subcutaneous EBL: <5cc Complications: ??No immediate Impression: Successful right hemodialysis catheter removal. Plan: 1) Keep bandage in place, clean and dry over next 48 hrs. 2) May discharge from angio recovery. Fellow: Gibson Avelar MD(pager #[phone]) Attending: Dr. Ghassan Haque, was present for the procedure. Jomar Franco MD IMG IR ORDERABLES documented in this encounter Visit Diagnoses Diagnosis ESRD on dialysis End stage renal disease documented in this encounter Care Teams Automatic Car Wash Attendant Relationship Specialty Start Date End Date Urbano Denis DO [address] [place] [address] PCP - General 09/03/12 03/17/22 documented as of this encounter
--- OUTSIDE RECORDS SUMMARY | 2024-02-14 11:37 | XMS_ITS | Encounter Summary ---
Author Organization [facility] [address] Care Team Providers Care Monotyper Name Role Phone Urbano Denis DO Primary Care Provider Encounter Details Date Type Department Care Team (Late st Contact Info) Description 07/31/2015 Orders Only [place] [address] Ellen Foote RN Pre-transplant evaluation for kidney transplant Social History Tobacco Use Types [...] AM EDT Hospital Encounter Non-[place] [address] Arrived documented as of this encounter Visit Diagnoses Diagnosis Pre-transplant evaluation for kidney transplant Other specified pre-operative examination documented in this encounter Care Teams Monotyper Relationship Specialty Start Date End Date Urbano Denis DO [address] [place] [address] PCP - General 09/03/12 03/17/22 Ruchi Valles RN Nurse Clinic Transplant Surgery 07/30/15 documented as of this encounter
--- OUTSIDE RECORDS SUMMARY | 2024-02-14 11:37 | XMS_ITS | Encounter Summary ---
Author [facility] [place] [address] Care Team Providers Care Sales Engineer Account Manager Name Role Phone Urbano Denis DO Primary Care Provider [phone] Encounter Details Date Type Department Care Team (Late st Contact Info) Description 07/16/2015 External Results [place] [address] Social History Tobacco Use Types Packs/Day Years Used Date Smoking Tobacco: Some Days Cigars Smokeless Tobacco: Never Comments:cigars, only someti [...] AM EDT Hospital Encounter Non-Invasive [place] [address] Arrived documented as of this encounter Procedures Procedure Name Priority Date/Time Associated Diagnosis Comments NON EXTERNAL RADIOLOGY EXAM Routine 04/04/2015 GI SCAN Routine 03/16/2009 documented in this encounter Results * Non EXTERNAL radiology exam (04/04/2015) Anatomical Region Laterality Modality Radiographic Yumiko ging Historical Provider MD MURPHY MRI ORDERABLE S * Scan Doc: GI (03/16/2009) Historical Provider MEDIA MGR SCAN EX T ORDR/RSLT documented in this encounter Visit Diagnoses Not on filedocumented in this encounter Care Teams Sales Engineer Account Manager Relationship Specialty Start Date End Date Urbano Denis DO [address] [place] [address] PCP - General 09/03/12 03/17/22 documented as of this encounter
--- OUTSIDE RECORDS SUMMARY | 2024-02-14 11:37 | XMS_ITS | Encounter Summary ---
[place] [address] Care Team Providers Care Trading Specialist Name Role Phone Albania Denis DO Primary Care Provider Reason for Referral * Diagnostic Test (Routine) - Closed Specialty Diagnoses / Procedures Referred By Contac t Referred To Contact Radiology Diagnoses ESRD (end stage renal disease) Procedures IR a/v fistula evaluations Jomar Franco MD [facility] [place] [place] [address] [place] [address] Referral ID Status Reason Start Date Expiration Date V isits Requested Visits Authorized [id number] Closed Specialty Service Requested 07/30/2015 07/29/2016 1 1 Reason for Visit * Diagnostic Test (Routine) - Closed Specialty Diagnoses / Procedures Referred By Contac t Referred To Contact Radiology Diagnoses ESRD (end stage renal disease) Procedures IR a/v fistula evaluations Jomar Franco MD [facility] [place] [place] [address] [place] [address] Referral ID Status Reason Start Date Expiration Date V isits Requested Visits Authorized [id number] Closed Specialty Service Requested 07/30/2015 07/29/2016 1 1 Encounter Details Date Type Department Care Team (Latest Contact Info) Description 07/31/2015 7:13 AM EST - 07/31/2015 11:59 PM EST Hospital Encounter Radiology at [facility] [place] [address] Jomar Franco MD [facility] [place] [address] ESRD (end stage renal disease) Discharge Disposition: [...] Sign Reading Time Taken Comments Blood Pressure 149/71 07/31/2015 9:45 AM EST Pulse 55 07/31/2015 9:15 AM EST Temperature 36.4 ??C (97.6 ??F) 07/31/2015 9:00 AM ES T Respiratory Rate 14 07/31/2015 8:45 AM EST Oxygen Saturation 96% 07/31/2015 9:45 AM EST Inhaled Oxygen Concentration - - Weight - - Height - - Body Mass Index - - documented in this encounter Discharge Instructions * Discharge Instructions* Yoselin Tomlin RN - 07/31/2015 9:04 AM EST [facility] Vascular and Interventional Radiology Discharge Instructions after your Fistulagram Bandage: The dressing(s) over the puncture site(s) in your fistula is/are covered with a dressing of folded gauze and bandaid(s). These should be left in place until the possibility of bleeding has passed (usually about six hours). When you do remove the dressing, do so slowly. If Bleeding Occurs: apply firm (but not excessive) direct pressure just enough to stop the bleeding, for 10-15 minutes. If the bleeding continues, have someone drive you to the nearest Emergency Department or call 911. Notify your Dialysis Center: ??? If you notice a change in the pulse or thrill in your fistula. ??? If you notice a change in your skin color at or around the fistula. ??? If you notice a change in the circulation below the fistula (i.e., fingers or toes) such as cool and/or pale skin. ??? If you see any redness or swelling. ??? If you develop a fever greater than or equal to 101 degrees Fahrenheit. ??? If you develop shaking chills. ??? If you develop pain around the fistula site. ??? If you have questions about your fistula or dialysis. When to call the Interventional Radiology Department: Please call with any questions or concerns. If it is during regular office hours, please call [phone]. If it is after regular office hours, or on weekends or holidays, please call [phone] and ask to speak to the Wound Care Technician investigations consultant for Interventional Radiology. You have received medication [...] as of this encounter Progress Notes * Huyen Mariano RN - 07/31/2015 8:33 AM EST To procedure room 0800 via stretcher. Onto table supine All monitors, O2, safety strap in place. Yes Med's per protocol. yes Fistulagrams only: Side: left Sheath removed @: 0843 Tip stop time: NA * Gibson Avelar MD - 07/30/2015 2:02 PM EST PRE-PROCEDURE VIR NOTE Date of : 1950 Age: 64 y.o. PCP: ALBANIA DENIS DO Referring Physician (if different): Salvador Indication: Bleeding and high pressure Planned Procedure: LUE fistulagram with possible intervention Chief Complaint/Diagnosis: 64 yo male s/p creation of a left brachiocephalic av fistula on 05/09/[address] Amaro. No prior interventions on the AVF. His tunneled line was removed 07/24/14. Reported to have bleeding and high pressures at dialysis. Pertinent Past Medical/Surgical History: Patient Active Problem [...] I10 ??? Hepatitis C virus infection B19.20 No Known Allergies Current Outpatient Prescriptions on File Prior to [...] by mouth daily. No current facility-administered medications on file prior to encounter. Pertinent ROS: as per HPI Pertinent Family History: non contributory Social History: n/a Labs: Lab Results Component Value Date WBC 7.4 05/16/2015 ANC 5.90 12/28/2014 HCT 34.4* 05/16/2015 PLATELET 228 05/16/2015 INR 1.0 05/16/2015 BUN 22* 05/16/2015 Lab Results Component Value Date ALKPHOS 72 05/16/2015 AST 19 05/16/2015 ALBUMIN 4.0 05/16/2015 BILIDIR 0.1 05/16/2015 BILITOT 0.7 05/16/2015 ALT 14 05/16/2015 Physical Exam:pending ASA: Mallampati Class: Assessment / Plan:64 yo male s/p creation of a left brachiocephalic av fistula on 05/09/15. No priorinterventions on the AVF. His tunneled line was removed 07/24/14. Reported to have bleeding and highpressures at dialysis. Medications to discontinue: None Prophylactic antibiotic: None Planned access site / position: supine, RUE PRE-SEDATION ASSESSMENT / FOCUSED H&P Addendum: The patient's history and physical exam have been reviewed and completed. There has been no interval change from that of the pre-operative history and physical exam done within the last 30 days. Risks (including hemorrhage, infection, allergic reaction, occlusion, respiratory depression), and benefits discussed and patient consented to the procedure. I have reviewed with the patient, their prior experience with sedation. The patient has been NPO per protocol I have reviewed the sedation plan for this patient???s case and concur that Fentanyl and Versed areappropriate choices for sedation and will be provided per the protocoled order set for this case Physical Exam Heart: RRR Lungs: clear ASA Classification: ASA 2 - Patient with mild systemic disease with no functional limitations Mallampati Classification: II (soft palate, uvula, fauces visible) Gibson Avelar MD VIR Fellow Pager #[phone] * Huyen Mariano RN - 07/30/2015 1:52 PM EST ANGIO/VIR NURSING DATABASE Name: ETHEL AKINS Date of : 1950 AGE 64 y.o. [address]: [address] [place] [address] (home) [phone] (work) Mobile: Telephone Information: Referring Provider: Jomar Franco PROCEDURE: Left fistulogram No Known Allergies Pertinent PMH: Patient Active [...] I10 ??? Hepatitis C virus infection B19.20 Pertinent PSH: Past Surgical History Procedure Laterality Date ??? Pro anastomosis, av, any site Left 05/09/2015 AV FISTULA CREATION, DIRECT HEMODIALYSIS, ANY SITE, EG ASHWINI FISTULA UPPER EXTREMITY performed by Que Amaro MD at [facility] MAIN OR Date/Procedure? Med's given/comments 01/08/2015: Tunneled HD catheter?? Versed 2.5 mg, Fentanyl 125 mcg. Tolerated well?? 07/31/15 Left Fistulogram ??Versed 2 mgs iv., Fentanyl 100 mcgs iv. ? Laboratory Results: Lab Results Component Value Date INR 1.0 05/16/2015 Lab Results Component Value Date CREATININE 4.29* 05/16/2015 Lab Results Component Value Date K 4.4 05/16/2015 Lab Results Component Value Date PLATELET 228 05/16/2015 Medications: Prior to Admission medications Medication Sig Start Date End Date Taking? Authorizing Provider levothyroxine (SYNTHROID) 50 mcg Tablet Take 50 [...] informed this patient that they require a reach lift truck driver to be present and in the building to drive them home after this procedure. In the absence of a reach lift truck driver, IR will not be able to perform this procedure and will need to reschedule. Pt verbalized understanding of these i nstructions during the pre-procedure education via phone. (initials) documented in this encounter Plan of Treatment Upcoming Encounters Date Type Department Care Team (Late st Contact Info) Description 04/15/2024 10:00 AM EDT Hospital Encounter Non-[place] [address] Arrived documented as of this encounter Procedures Procedure Name Priority Date/Time Associated Diagnosis Comments IR DIALYSIS ACCESS - AV FISTULA EVALUATIONS Routine 07/31/2015 8:54 AM EST ESRD (end stage renal disease) POCT GLUCOSE Routine 07/31/2015 7:28 AM EST documented in this encounter Results * IR a/v fistula evaluations (07/31/2015 8:54 AM EST) Anatomical Region Laterality Modality Abdomen X-Ray Angiograph y Narrative 08/01/2015 10:48 AM EST IR Procedure Note Procedure: LUE fistulogram History/indication:64 yo male s/p creation of a left brachiocephalic av fistula on 05/09/[address] Amaro. No prior interventions on the AVF. His tunneled line was removed 07/24/14. Reported to have bleeding and high pressures at dialysis. ?? Technique: After obtaining informed consent, the left arm and AVF were prepped and draped in a sterile fashion. US evaluation of the fistula was performed showing perivenous hematoma over the outflow vein at the mid-humerus. Doppler flow noted preserved through the anastomosis. Prior to beginning the procedure, a standard time out Moment of Truth was performed to confirm all carrizales aspects (including the patient's identity, informed consent, medical record number, allergies, planned procedure and laterality if appropriate) all of which were correct. Due to the painful nature of the procedure, patient received split doses of intravenous fentanyl and versed from the IR nurse while pulse, pressure, and oxygen saturation were continuously monitored. The peripheral aspect of the fistula was accessed using a micropuncture technique, directed centrally. A fistulogram was performed, demonstrating ?? early venous branches coursing laterally from peripheral cephalic outflow vein. No significant stenosis or collateral venous drainage seen by angiography. Outflow veins patent to the right heart. Wire and angled catheter advanced into the subclavian vein and pullback pressure measurements obtained with no significant gradient identified from subclavian vein to peripheral cephalic vein. Pressures: Left subclavian vein: 6-7 mm Hg Cephalic outflow vein: 14 mm Hg The sheath and guide wire were removed and hemostasis achieved with manual compression. The patient tolerated the procedure well. Complications: ?? None immediate; ??EBL=0 Medications: ??1% lidocaine (<10 cc), Fentanyl 100 mcg IV, Versed 2 mg IV Contrast: 14 ml Omni 350 Fluoroscopy time: 1.9 min Findings: 1. No significant outflow vein stenosis by angiography. Patent outflow vein to right heart. No significant pressure gradient subclavian vein to cephalic outflow vein(7 mm Hg). 2. US evaluation demonstrates patent anastomosis by doppler exam. Small perivenous hematoma over the outflow vein at the mid-humerus by US. Fellow: Gibson Avelar MD (pager #[phone]) Attending: Jade Nelson MD ?? (I was present and scrubbed for the entire procedure) Jomar Franco MD IMG IR ORDERABLES * POCT Glucose (07/31/2015 7:28 AM EST) Glucose, POC 112 65 - 199 mg/dL [facility] Comment: Supplemental ranges: <140 mg/dL before meals <180 mg/dL all other times of the day Blood specimen (specimen) 07/31/2015 7:28 AM EST 07/31/2015 7:28 AM EST Jomar Franco MD POINT OF CARE TEST ORDERABLES [facility] documented in this encounter Visit Diagnoses Diagnosis ESRD (end stage renal disease) End stage renal disease documented in this encounter Administered Medications Inactive Administered Medications - up to 3 most recent administrations Medication Order MAR Action Action Date Dose Rate Site fentaNYL 50 mcg/mL multi-dose injection 25-50 mcg, Intravenous, EVERY 5 MIN PRN, Starting on Thu07/31/15 at 0731, Until Thu07/31/15 at 1002, Pain, per unit protocol, For use in Interventional Radiology (IR) only for procedural sedation with direct provider supervision and verbal order., Angio/IR (Intra-Procedure), Routine Given 07/31/2015 8:25 AM EST 25 mcg Given 07/31/2015 8:20 AM EST 25 mcg Given 07/31/2015 8:05 AM EST 50 mcg iohexol (OMNIPAQUE) 350 mg/mL solution 52,500 mg 52,500 mg (150 mL), Other, ONCE, 1 dose, On Thu07/31/15 at 0900, Routine Given 07/31/2015 9:00 AM EST 14 mLs midazolam (PF) (VERSED) 1 mg/mL multi-dose injection 0.5-1 mg 0.5-1 mg, Intravenous, EVERY 5 MIN PRN, Starting on Thu07/31/15 at 0731, Until Thu07/31/15 at 1002, Anxiety, per unit protocol, For use in Interventional Radiology (IR) only for procedural sedation with direct provider supervision and verbal order., Angio/IR (Intra-Procedure), Routine Given 07/31/2015 8:25 AM EST 0.5 mg Given 07/31/2015 8:20 AM EST 0.5 mg Given 07/31/2015 8:05 AM EST 1 mg documented in this encounter Care Teams Trading Specialist Relationship Specialty Start Date End Date Albania Denis DO [address] [place] [address] PCP - General 09/03/12 03/17/22 Ruchi Valles RN Nurse Clinic Transplant Surgery 07/30/15 documented as of this encounter
--- OUTSIDE RECORDS SUMMARY | 2024-02-14 11:37 | XMS_ITS | Encounter Summary ---
Author Organization [facility] Address [facility] [place] [address] Care Team Providers Care Consolidator Name Role Phone Urbano Denis DO Primary Care Provider [phone] Reason for Referral * Diagnostic Test (Routine) - Closed Specialty Diagnoses / Procedures Referred By Humberto flor Referred To Contact Radiology Diagnoses ESRD on dialysis Procedures IR line[place]tube removal [place] [facility] Jaz Mayorga MD [facility] [place] [address] [place] [address] Referral ID Status Reason Start Date Expiration Date V isits Requested Visits Authorized [id number] Closed Specialty Service Requested 07/18/2015 07/17/2016 1 1 Encounter Details Date Type Department Care Team (Late st Contact Info) Description 07/18/2015 Orders Only [place] [address] Jaz Mayorga MD [facility] [place] [address] ESRD on dialysis Social History Tobacco Use Types Packs/Day Years [...] AM EDT Hospital Encounter Non-[place] [phone] Arrived documented as of this encounter Results * IR line/tube removal recovery room- [facility] (07/24/2015 1:55 PM EST) Anatomical Region Laterality [...] tunneled HD catheter which was placed in [place]. Technique: ??The patient was positioned supine on [...] from angio recovery. Fellow: Gibson Avelar MD(pager #[phone]) Attending: Dr. Ghassan Haque, was present for the procedure. Jomar Franco MD IMG IR ORDERABLES documented in this encounter Visit Diagnoses Diagnosis ESRD on dialysis End stage renal disease ESRD on dialysis End stage renal disease documented in this encounter Care Teams Consolidator Relationship Specialty Start Date End Date Urbano Denis DO [address] [place] [address] PCP - General 09/03/12 03/17/22 documented as of this encounter
--- OUTSIDE RECORDS SUMMARY | 2024-02-14 11:37 | XMS_ITS | Encounter Summary ---
Author Organization [facility] [place] [address] Care Team Providers Care Analysis Consultant Name Role Phone Urbano Denis DO Primary Care Provider [phone] Encounter Details Date Type Department Care Team (Late st Contact Info) Description 07/26/2015 External Results [place] [id number] Social History Tobacco Use Types Packs/Day Years [...] EDT Hospital Encounter Non-Invasive [place] [address] Arrived documented as of this encounter Procedures Procedure Name Priority Date/Time Associated Diagnosis Comments [facility] KIDNEY INITIAL - RECIPIENT Routine 07/20/2015 documented in this encounter Results * Transplant: Kidney Initial (Recipient) - EXTERNAL collections (07/20/2015) Historical Provider EXTERNAL LAB [facility] JENNINGS documented in this encounter Visit Diagnoses Not on filedocumented in this encounter Care Teams Analysis Consultant Relationship Specialty Start Date End Date Urbano Denis, DO [address] [place] [address] PCP - General 09/03/12 03/17/22 documented as of this encounter
--- OUTSIDE RECORDS SUMMARY | 2024-02-14 11:37 | XMS_ITS | Encounter Summary ---
Author Organization [facility] [place] [address] Care Team Providers Care Senior Risk Manager Name Role Phone Urbano Denis DO Primary Care Provider Encounter Details Date Type Department Care Team (Latest Contact Info) Description 07/17/2015 1:57 PM EST - 07/17/2015 11:59 PM [facility] Hospital [place] [address] Kitty Townsend RVT Pre-transplant evaluation for kidney transplant; End stage renal disease Discharge Disposition: Home Social History Tobacco Use [...] daily. 09/20/2015 documented as of this encounter Plan of Treatment Upcoming Encounters Date Type Department Care Team (Late st Contact Info) Description 04/15/2024 10:00 AM EDT Hospital Encounter Non[place] [address] Arrived documented as of this encounter Procedures Procedure Name Priority Date/Time Associated Diagnosis Comments ALEXANDER, LEGS, MULTIPLE LEVELS Routine 07/17/2015 1:58 PM EST Pre-transplant evaluation for kidney transplant End stage renal disease CAROTID DUPLEX, BILATERAL Routine 07/17/2015 1:58 PM EST Pre-transplant evaluation for kidney transplant End stage renal disease documented in this encounter Results * Cerebrovascular Duplex, Bilateral (07/17/2015 1:58 PM EST) VB Text Report Department: Vascular Surgery Lab Patient: [id number] (ETHEL AKINS) CPT: 24935 ICD10: N18.6;Z01.818 Referring Physician: TAL PURI ?? Indications: hx of stroke/pre-op evaluation for kidney transplant; ? carotid artery stenosis ICD10 Diagnosis Code: N18.6, Z01.818 Findings: ICA Proximal, Right ? PSV (cm/s): 36 ? EDV (cm/s): 12 ? ICA/CCA: 0.6 ? %Stenosis: <15% ICA Distal, Right ? PSV (cm/s): 41 ? EDV (cm/s): 14 ? ICA/CCA: 0.7 CCA Distal, Right ? PSV (cm/s): 62 ? EDV (cm/s): 10 ? %Stenosis: Minimal CCA Proximal, Right ? PSV (cm/s): 81 ? EDV (cm/s): 8 External Carotid Artery, Right ? PSV (cm/s): 71 ? EDV (cm/s): 0 ? %Stenosis: Minimal Vertebral, Right ? PSV (cm/s): 23 ? EDV (cm/s): 6 ? Direction of Flow: Antegrade ICA Proximal, Left ? PSV (cm/s): 42 ? EDV (cm/s): 14 ? ICA/CCA: 1.0 ? %Stenosis: <15% ICA Distal, Left ? PSV (cm/s): 55 ? EDV (cm/s): 15 ? ICA/CCA: 1.3 CCA Distal, Left ? PSV (cm/s): 43 ? EDV (cm/s): 10 ? %Stenosis: Minimal CCA Proximal, Left ? PSV (cm/s): 73 ? EDV (cm/s): 12 External Carotid Artery, Left ? PSV (cm/s): 85 ? EDV (cm/s): 0 ? %Stenosis: Minimal Vertebral, Left ? PSV (cm/s): 38 ? EDV (cm/s): 12 ? Direction of Flow: Antegrade Interpretation: RIGHT: Essentially normal carotid artery duplex exam: There is minimal intimal thickening in the common carotid artery and carotid bulb causing no stenosis when compared to the more distal internal carotid artery. The bifurcation level is in the mid neck. LEFT: Essentially normal carotid artery duplex exam: There is minimal intimal thickening in the common carotid artery and carotid bulb causing no stenosis when compared to the more distal internal carotid artery. The bifurcation level is in the mid neck. Vertebral Artery Data: Patent vertebral arteries with normal antegrade Doppler waveforms and velocities bilaterally. Comparison: ??No previous study in our vascular lab database for comparison. Electronically Signed by: JUNG GARCIA on 2015-07-19 04:23:27 PM [facility] VB Text Report End of Report [facility] 07/17/2015 1:58 PM EST Tal Puri MD VASCULAR ORDERABL ES [facility] * ALEXANDER, legs, multiple levels (07/17/2015 1:58 PM EST) VB Text Report Department: Vascular Surgery Lab Patient: [id number] (ETHEL AKINS) CPT: 16931 ICD10: Z01.818;N18.6 Referring Physician: TAL PURI ?? Indications: pre-op evaluation for kidney transplant Diabetes mellitus: Yes ICD10 Diagnosis Code: Z01.818, N18.6 Definitions: ALEXANDER = Ankle / Brachial Systolic Pressure Index, TBI = Toe / Brachial Systolic Pressure Index. All systolic pressures in this study are derived based on Doppler assessment of blood flow. Findings: Right ?Pressure (mm Hg) ?? ALEXANDER ??Waveform ?TBI ?? Brachial Artery ?129 ? Common Femoral Artery ?Triphasic ? Pop Fossa ?Triphasic ? Dorsalis Pedis (Ankle) Artery ?149 ? 1.16 ??Triphasic ? Posterior Tibial (Ankle) Artery ??115 ? 0.89 ??Biphasic ? Great Toe ?100 ?0.78 ?? Left ? Pressure (mm Hg) ?? ALEXANDER ??Waveform ?TBI ?? Common Femoral Artery ?Triphasic ? Pop Fossa ?Triphasic ? Dorsalis Pedis (Ankle) Artery ?96 ?0.74 ??Biphasic ? Posterior Tibial (Ankle) Artery ??130 ? 1.01 ??Biphasic ? Great Toe ?83 ? 0.64 ?? Note: Left brachial systolic pressure not taken due to brachiocephalic AVF. Interpretation: RIGHT: ??Mild lower extremity arterial occlusive disease. Disease location: infra-popliteal LEFT: ??Mild lower extremity arterial occlusive disease. Disease location: infra-popliteal Comparison: ??No previous study in our vascular lab database for comparison. Electronically Signed by: JUNG GARCIA on 2015-07-19 04:23:27 PM [facility] VB Text Report End of Report [facility] 07/17/2015 1:58 PM EST Tal Puri MD VASCULAR ORDERABL ES [facility] documented in this encounter Visit Diagnoses Diagnosis Pre-transplant evaluation for kidney transplant Other specified pre-operative examination End stage renal disease documented in this encounter Care Teams Senior Risk Manager Relationship Specialty Start Date End Date Urbano Denis DO [address] [place] [address] PCP - General 09/03/12 03/17/22 documented as of this encounter
--- OUTSIDE RECORDS SUMMARY | 2024-02-14 11:37 | XMS_ITS | Encounter Summary ---
Author Organization [facility] [place] [address] Care Team Providers Care Data Entry Processor Name Role Phone Urbano Denis DO Primary Care Provider Encounter Details Date Type Department Care Team (Late st Contact Info) Description 09/04/2015 External Results Solid [place] [phone] Social History Tobacco Use Types Packs/Day Years [...] AM EDT Hospital Encounter Non-[place] [address] Arrived documented as of this encounter Procedures Procedure Name Priority Date/Time Associated Diagnosis Comments TXP FOLLOW UP RENAL RECIPIEN T WORK-UP Routine 08/08/2015 documented in this encounter Results * Transplant: Renal Recipient Work-up (08/08/2015) Historical Provider CHEMISTRY ORDERAB LES documented in this encounter Visit Diagnoses Not on filedocumented in this encounter Care Teams Data Entry Processor Relationship Specialty Start Date End Date Urbano Denis, DO [address] [place] [address] PCP - General 09/03/12 03/17/22 Ruchi Valles RN Nurse Clinic Transplant Surgery 07/30/15 documented as of this encounter
--- OUTSIDE RECORDS SUMMARY | 2024-02-14 11:37 | XMS_ITS | Encounter Summary ---
Author Organization [facility] [place] [address] Care Team Providers Care Textile Broker Name Role Phone Urbano Denis DO Primary Care Provider Encounter Details Date Type Department Care Team (Late st Contact Info) Description 07/17/2015 Abstract Solid [place] [address] Aurora Kessler Social History Tobacco Use Types Packs/Day Years [...] EDT Hospital Encounter Non-Invasive [place] [address] Arrived documented as of this encounter Visit Diagnoses Not on filedocumented in this encounter Care Teams Textile Broker Relationship Specialty Start Date End Date Urbano Denis DO [address] [place] [address] PCP - General 09/03/12 03/17/22 documented as of this encounter
--- OUTSIDE RECORDS SUMMARY | 2024-02-14 11:37 | XMS_ITS | Encounter Summary ---
[facility] Organization [facility] [address] Care Team Providers Care Wind Development Director Name Role Phone Urbano Denis DO Primary Care Provider Encounter Details Date Type Department Care Team (Latest Contact Info) Description 07/17/2015 1:15 PM EST Laboratory Appointment Lab [address] [place] [id number] Pre-transplant evaluation for kidney transplant; End stage renal disease Social History Tobacco Use Types Packs/Day Years [...] Hospital Encounter [place] [phone] Arrived documented as of this encounter Procedures Procedure Name Priority Date/Time Associated Diagnosis Comments TRANPLANT: BLOOD DRAW KIT REQUEST - INTERNAL Routine 07/17/2015 1:44 PM EST HSV 1 AND 2 IGG ANTIBODIES Routine 07/17/2015 1:44 PM EST Pre-transplant evaluation for kidney transplant End stage renal disease TITUS-TAM VIRUS ANTIBODIES Routine 07/17/2015 1:44 PM EST Pre-transplant evaluation for kidney transplant End stage renal disease TOXOPLASMA ANTIBODY, IGM Routine 07/17/2015 1:44 PM EST Pre-transplant evaluation for kidney transplant End stage renal disease TOXOPLASMA ANTIBODY, IGG Routine 07/17/2015 1:44 PM EST Pre-transplant evaluation for kidney transplant End stage renal disease VARICELLA ZOSTER ANTIBODY, IGG Routine 07/17/2015 1:44 PM EST Pre-transplant evaluation for kidney transplant End stage renal disease documented in this encounter Results * Transplant: Blood draw kit request (07/17/2015 1:44 PM EST) TXP BLD Draw Req Sample in lab. BENEDICT MCCLENDONENNIUM Blood specimen (specimen) Venous Draw / Unknown 07/17/2015 1:44 PM EST 07/17/2015 2:03 PM EST Narrative Resulting Agency Comment Spec In Lab Tal Eagle MD LAB SEND OUT ROCHELLE JENNINGS Performing Organization Address City/[facility]/ZIP Co de Phone Number BENEDICT COOK * Varicella zoster Antibody, IgG (07/17/2015 1:44 PM EST) Varicella Zoster Antibody IgG Pos CERNER MILLENNIUM Blood specimen (specimen) 07/17/2015 1:44 PM EST 07/18/2015 7:56 AM EST Narrative Resulting Agency Comment Spec In Lab Tal Eagle MD IMMUNOLOGY ORDERA BLES BENEDICT COOK * Toxoplasma Antibody, IgM (07/17/2015 1:44 PM EST) Toxoplasma Antibody IgM Neg Neg CERNER MILLENNIUM Blood specimen (specimen) 07/17/2015 1:44 PM EST 07/18/2015 7:56 AM EST Narrative Resulting Agency Comment Spec In Lab Tal Eagle MD IMMUNOLOGY ORDERA BLES CERROSALINA PEACOCKIUM * Toxoplasma Antibody, IgG (07/17/2015 1:44 PM EST) Toxoplasma Antibody IgG Neg Neg CERNER MILLENNIUM Blood specimen (specimen) 07/17/2015 1:44 PM EST 07/18/2015 7:56 AM EST Narrative Resulting Agency Comment Spec In Lab Tal Eagle MD IMMUNOLOGY ORDERA BLES Performing Organization Address City/[facility]/ZIP Co de Phone Number CERROSALINA MCCLENDONENNIUM * (ABNORMAL) HSV 1 and 2 IgG Antibodies (07/17/2015 1:44 PM EST) HSV Type 1 Ab, IgG Pos(A) Neg CERNER MILLENNIUM HSV Type 2 Ab, IgG Equivocal( A) Neg CERNER MILLENNIUM Blood specimen (specimen) 07/17/2015 1:44 PM EST 07/18/2015 7:56 AM EST Narrative Resulting Agency Comment Spec In Lab Tal Eagle MD IMMUNOLOGY ORDERA BLES Performing Organization Address [facility] Co de Phone Number CERROSALINA PEACOCKIUM * (ABNORMAL) Titus-Tam Virus Antibodies (07/17/2015 1:44 PM EST) EBV (VCA) IgG Ab Pos(A) Neg CER NER MILLENNIUM EBV (VCA) IgM Ab Neg Neg CER NER MILLENNIUM EBNA Antibodies Pos(A) Neg CERN ER MILLENNIUM EBV Interpretation Results suggest past infection. CERNER MILLENNIUM Comment: In most populations, at least 90% of the adult population will have been infected with EBV some time in the past and therefore, will be positive for anti-VCA/IgG and anti-EBNA. Antibodies to EBNA develop 6-8 weeks after primary infection and remain present for life. Presence of VCA/IgM antibodies indicates recent primary infection with EBV. Blood specimen (specimen) 07/17/2015 1:44 PM EST 07/18/2015 7:56 AM EST Narrative Resulting Agency Comment Spec In Lab Tal Eagle MD IMMUNOLOGY ORDERA BLES Performing Organization Address City/State/[facility] [place] Phone Number [facility] documented in this encounter Visit Diagnoses Diagnosis Pre-transplant evaluation for kidney transplant Other specified pre-operative examination End stage renal disease documented in this encounter Care Teams Wind Development Director Relationship Specialty Start Date End Date Urbano Denis DO [address] [place] [address] [address] [place] [address] PCP - General 09/03/12 03/17/22 documented as of this encounter
--- OUTSIDE RECORDS SUMMARY | 2024-02-14 11:37 | XMS_ITS | Encounter Summary ---
Author Organization [facility] [place] [address] Care Team Providers Care Diplomatic Interpreter Name Role Phone AdeelUrbano boland Primary Care Provider [phone] Encounter Details Date Type Department Care Team (Late st Contact Info) Description 09/07/2015 Notes [place] [phone] Ellen Foote RN Social History Tobacco Use [...] as of this encounter Progress Notes * Ellen Bauer RN - 09/07/2015 9:15 AM EST Per the decision of the multidisciplinary Transplant Team, this note confirms that Cody Bolden has been formally activated on 09/07/2015 on the [facility] Kidney transplant list. The patient???s medical, psychosocial and financial review have been completed and reviewed by the [facility]???s multidisciplinary transplant committee and he/she been found to be an appropriate candidate for transplant. The process of being added to the waitlist includes ABO verification according to section policy includes: Two separate samples were drawn on two separate dates prior to lisiting. The results were entered into the patient's medical record. When recording the patient's ABO in [facility] I reviewed both documents. Both source documents reported a blood type of AB POS. I entered blood type AB+ into [facility]. Both source documents were reviewed by a second qualified healthcare professional as determined by our section policy. This individual verified that both reports recorded the patient's ABO as AB POS and that this information has been correctly entered into [facility]. In addition, for patients who are dialysis dependant, the dialysis unit will be contacted on a monthly basis for updated clinical information. The patient can be temporarily or permanently removed from the transplant list for medical indications as outlined in the Transplant Center???s policy and procedure manual. Should this occur, the patient, referring physician, and dialysis center will be notified in writing within 10 days. This policy has been discussed in detail with the patient by the Transplant Team. documented in this encounter Plan of Treatment Upcoming Encounters Date Type Department Care Team (Late st Contact Info) Description 04/15/2024 10:00 AM EDT Hospital Encounter Non-Invasive [place] [phone] Arrived documented as of this encounter Visit Diagnoses Not on filedocumented in this encounter Care Teams Diplomatic Interpreter Relationship Specialty Start Date End Date Urbano Denis DO [address] [place] [address] PCP - General 09/03/12 03/17/22 Ruchi Valles RN Nurse Clinic Transplant Surgery 07/30/15 documented as of this encounter
--- OUTSIDE RECORDS SUMMARY | 2024-02-14 11:37 | XMS_ITS | Encounter Summary ---
Author Organization [facility] [place] [address] Care Team Providers Care Licensed Nursing Assistant Name Role Phone Albania Nunez DO Primary Care Provider [phone] Reason for Visit * Auth/Cert Specialty Diagnoses / Procedures Referred By Humberto flor Referred To Contact Diagnoses RENAL FAILURE Kidney transplant. UNOS #[id number] Procedures PRO TRANSPLANTATION OF KIDNEY PRO TRANSPLANT, PREP CADAVER RENAL GRAFT @KIDNEY TRANSPLANT, WITHOUT RECIPIENT NEPHRECTOMY @PREPARATION CADAVERIC RENAL ALLOGRAFT Referral ID Status Reason Start Date Expiration Date Visits Re quested Visits Authorized [id number] 1 1 Encounter Details Date Type Department Care Team (Late st Contact Info) Description 09/16/2015 9:00 AM EDT - 09/16/2015 1:01 PM EDT Surgery [place] [address] Larry Larkin MD [facility] [place] [address] @KIDNEY TRANSPLANT, WITHOUT RECIPIENT NEPHRECTOMY (WRVU 39.88) Social History Tobacco Use Types Packs/Day Years [...] was initially evaluated for kidney transplantation on 12 and was activated on the recipient list [...] note, Infectious Disease was consulted during Mr. Tubiello's stay because [facility], and had known Group [...] Department Center 09/25/2015 9:00 AM TRANSPLANT, COORDINATOR Heri [address] [place] 09/25/2015 10:30 AM Larry Larkin MD Le[facility] [address] [facility] Outpatient Services/Studies: OPAT: Order / Recommendation for [...] nurse practitioner, clinical nurse specialist or physician's server assistant who is working directly with them, had a face to face encounter that meets the physician face to face encounter requirements with this patient on 09/19/2015 The encounter with the patient was in whole, or in part, for the following medical condition, whichis the primary reason for home health care services: [ ESRD, on HD at [facility] HD Thu/Thu/Thursday since January 2015. OR [...] changes will need to be obtained from [facility] Transplant Clinic [phone] or from this patient's PCP: ALBANIA NUNEZ DO [address] [place] [address] All VNA agencies which cover the area of patient's residence have been reviewed, either verbally greg writing, and patient/family have chosen the indicated home health care agency for home services. [facility] [place] PHONE: [phone] FAX: [phone] RN visits to begin on day after patient's discharge to home, if possible. RN visits 3-4times/week for post-operative assessment, checking for signs and symptoms of infection. Assess nutrition and hydration/abdomen/stooling pattern. Check weight and intake/output records. Reinforcement of teaching about LEEANNA drain care/emptying and recording amount of drainage. Cardio-pulmonary assessment. Medication review. Central line care per [facility] OPAT protocol. Reinforcement of teaching about IV antibiotic administration. Question Response Notes Agency name and contact information [facility] Patient location post discharge home What services are requested Registered Nurse Responsible MD post discharge contact info [facility] Dr. Larry Larkin and PCP Albania Nunez Referral for Outpatient Antibiotics Question Response Notes Vendor / contact information [facility] Patient location post discharge home Service requested Central line care per OPAT protocol and IV antibiotic Responsible MD post discharge contact info [facility] Dr. Larry Larkin and Dr. Brian Grande [...] may be used if needed and are rwjf-qzq-fzrnxri (OTC) medications available at most local pharmacies. Prunes or prune juice, taken daily, can also be helpful for constipation treatment or prevention and are available at most [employer]. Driving Restrictions*: - No driving if you [...] Medicine sheet provided to you by the User Support Analyst to guide your daily doses. If you did notreceive some medications from the pharmacy at [facility] it is likely because they are over [...] with the Transplant Surgery Outpatient Clinic - [id number] in 2-4 days. You will recieve a letter in the mail and/or a phone call with information about this appointment. Please call [phone] (clinic number for appointments) to confirm date [...] blood work. Your surgeon may not be Real Estate Agent/Broker, especially during the night or on weekends, so be ready to describe yourself and your surgery when you call. General Instructions Office of Care Management/Developer Analyst(CM) Home IV Antibiotic Therapy Referral Note. [...] Home Health Agency: Patient requested referral to [facility] [place]. PHONE: [phone] FAX: [phone] Referrals sent via edischarge. Home Infusion Vendor: Patient requested referral to [place], [place] or Referrals sent via edischarge. Diabetic Status: Patient is a diabetic. IV access: Type of line: Tunneled CVC Date placed: 09/19/15 CM signature Ruchi Tang RN Pager# [phone] [facility] Vascular/Interventional Radiology DISCHARGE INSTRUCTIONS FOR TUNNELED CENTRAL [...] is during regular working hours, please call [phone]. If it is after 5 pm or a weekend or holiday, call [phone] and ask for the Cart Attendant bi application developer for Interventional Radiology. You have received medication [...] 09/19/2015 4:12 PM EDT Office of Care Management/Developer Analyst(CM) Home IV Antibiotic Therapy Referral Note. [...] Home Health Agency: Patient requested referral to [facility] [place], [facility] PHONE: [phone] FAX: [phone] Referrals sent via edischarge. Home Infusion Vendor: Patient requested referral to [place], [place] or Referrals sent via edischarge. Diabetic Status: Patient is a diabetic. IV access: Type of line: Tunneled CVC Date placed: 09/19/15 CM signature Ruchi Tang RN Pager# [phone] [facility] Vascular/Interventional Radiology DISCHARGE INSTRUCTIONS FOR TUNNELED CENTRAL [...] is during regular working hours, please call [phone]. If it is after 5 pm or a weekend or holiday, call [phone] and ask for the Cart Attendant bi application developer for Interventional Radiology. You have received medication [...] M. D. Updated 07/20/15 * Patient Instructions* RodriguezMarty tomasjim Sheth - 09/19/2015 12:44 PM EDT Discharge Instructions [...] may be used if needed and are lise-vis-ksosahf (OTC) medications available at most local pharmacies. Prunes or prune juice, taken daily, can also be helpful for constipation treatment or prevention and are available at most [employer]. Driving Restrictions*: - No driving if you [...] Medicine sheet provided to you by the User Support Analyst to guide your daily doses. If you did notreceive some medications from the pharmacy at [facility] it is likely because they are over [...] with the Transplant Surgery Outpatient Clinic - [id number] in 2-4 days. You will recieve a letter in the mail and/or a phone call with information about this appointment. Please call [phone] (clinic number for appointments) to confirm date [...] blood work. Your surgeon may not be Real Estate Agent/Broker, especially during the night or on weekends, [...] 65 y.o. male admitted on 09/16/[address] Larkin, Larry Bell MD with PMH significant for DMII, HTN, [...] EXTREMITY performed by Que Amaro MD at [facility] OR? Pro transplantation of kidney?? N/A?? 09/16/2015? @KIDNEY TRANSPLANT, WITHOUT RECIPIENT NEPHRECTOMY performed by Larry Larkin MD at [facility] OR? Pro transplant, prep cadaver renal graft?? N/A?? 09/16/2015? @PREPARATION CADAVERIC RENAL ALLOGRAFT performed by Larry Larkin MD at [facility] OR? N/A?? 09/16/2015? ORGAN ACQUISITION RENAL, CADAVERIC performed by Larry Larkin MD at [facility] OR?? Social History: Patient lives with spouse in [place], [place].?? He reports he & not working [...] Physical Therapy Goals: To be achieved by 09-20-16. ? 3. Pt. to perform bed mobility [...] minutes Total timed interventions: 23 minutes Pager: [phone] Nicole Soares Physical Therapy Rehabilitation Department * Pauline Miles RN - 09/20/2015 3:36 PM EDT Patient [...] their responsibilities at home. Samia Escalante RN [facility] Solid Organ Transplant [phone] (Pager: [phone]) * Kyle Huizar APRN - 09/20/2015 12:47 PM EDT Interventional Radiology [...] disease) ??? Hematuria Time of patient encounter: 0630 24 Hour Events: No issues with CVC. [...] single lumen CVC was placed 09/19/15 for care home antibiotics. The CVC has not been used, according to nursing. Possible discharge home today. Plan: We will sign off, but would be happy to see patient again for any issues. KYLE HUIZAR APRN 09/20/2015 * Herlinda Bell, RD - 09/20/2015 12:02 PM EDT TRANSPLANT NUTRITION Post-Transplant Discharge Diet Instruction This com writer met with Ethel Bolden a 65 year old male for diet teaching prior to discharge on 09/20/2015 post-kidney transplant. His was also present for the teaching. Diet RX as inpatient: Carb-controlled 60/60/75 Diet teaching done for JMAESON, NCS, low saturated fat/cholesterol diet with high [...] requirements decrease to ~85gms per day. This com writer stressed importance of adequate hydration and we [...] known allergies. S: Discussed medications with both Mr and Mrs Bolden in anticipation of discharge. [...] prior to his leaving. Samia Escalante RN [facility] Solid Organ Transplant [phone] (Pager: [phone]) * Therese Carpio RN - 09/19/2015 2:26 PM EDT 1410 To procedure room 2 via stretcher. Onto table in supine position. All monitors, O2, safety strap in place. Med's per protocol. * Herlinda Bell RD - 09/19/2015 11:11 AM EDT TRANSPLANT NUTRITION Post-Transplant Nutrition Visit This com writer met with Ethel Toth Helderramón a 65 year old male for nutrition [...] decrease to ~82gms per day. Summary/Plan: This com writer will initiate diet teaching tomorrow with patient and . Follow up with patient after discharge in outpatient solid organ transplant clinic. Remain available for questions/concerns. * Ruchi Tang, RN - 09/19/2015 10:00 AM EDT Care Management/ Pager# [phone]/ Transfer note and Discharge planning S: Getting everything organized for me to be able to go home tomorrow sounds perfect. I was doing HD at [facility] on Thursday/Thursday/Thursday since January 2015. I won't be needing to go there anymore. Getting the referrals in to [facility] and [facility] is a good plan. Thanks for your help. O: Met with patient this morning. [facility] Patient is POD# 3 donor kidney [...] OOB ambulating with minimal assistance. Message to Process Mold Technician about [facility] ([facility]) prior to admission. Message to Process Mold Technician for referral to [facility] and to [facility]. Call to Anthony of [facility] to discuss referral for CVC care and IV antibiotic. Care Management note for MD Discharge Summary (with VNA and IV antibiotic Vendor information) completed and pended by com writer. Discussion with application security architect Tamela Mckeon. A/P: Discharge planning underway for likely patient discharge on 09/19. At time of patient's discharge, staff respiratory therapist to call report to VNRay and MD Discharge Summary . * Ruchi Tang RN - 09/19/2015 9:47 AM EDT Office of Care Management/Developer Analyst(CM) Home IV Antibiotic Therapy Referral Note. [...] Home Health Agency: Patient requested referral to [facility] [place] PHONE: [phone] FAX: [phone] Referrals sent via edischarge. Home Infusion Vendor: Patient requested referral to [place], [place] or Referrals sent via edischarge. Diabetic Status: Patient is a diabetic. IV access: Type of line: Tunneled CVC Date placed: 09/19/15 CM signature Ruchi Tang RN Pager# [phone] * Que Amaro MD - 09/19/2015 9:03 [...] Lines/Drains: PIV Whaley LEEANNA drain Recent Labs 09/19/15 0614 [...] - Continue 7 days of IV Ceftriaxone (thourhg 09/22) per ID recs for bacteremia; add Doxy [...] tomorrow Stable, floor status. * Alona Aviles - 09/19/2015 8:51 AM EDT Images from [...] on 07/31/2015 for an AV fistulagram without TEACHER ASST. He has had prior R IJ TDC [...] EXTREMITY performed by Que Amaro MD at [facility] OR ??? Pro transplantation of kidney N/A 09/16/2015 @KIDNEY TRANSPLANT, WITHOUT RECIPIENT NEPHRECTOMY performed by Larry Larkin MD at [facility] OR ??? Pro transplant, prep cadaver renal graft N/A 09/16/2015 @PREPARATION CADAVERIC RENAL ALLOGRAFT performed by Larry Larkin MD at [facility] OR ??? N/A 09/16/2015 ORGAN ACQUISITION RENAL, CADAVERIC performed by Larry Larkin MD at [facility] OR No Known Allergies Scheduled Meds: ??? [...] Amaro on 05.09.15. Patient last seen in [place] 07/31/2015 for an AV fistulagram without TEACHER ASST. He has had prior R IJ TDC [...] of : 1950 AGE 65 y.o. Address: [address] [place] [phone] (home) [phone] (work) Mobile: Telephone Information: Referring Provider: Albania [...] EXTREMITY performed by Que Amaro MD at [facility] OR ??? Pro transplantation of kidney N/A 09/16/2015 @KIDNEY TRANSPLANT, WITHOUT RECIPIENT NEPHRECTOMY performed by Larry Larkin MD at [facility] OR ??? Pro transplant, prep cadaver renal graft N/A 09/16/2015 @PREPARATION CADAVERIC RENAL ALLOGRAFT performed by Larry Larkin MD at [facility] OR ??? N/A 09/16/2015 ORGAN ACQUISITION RENAL, CADAVERIC performed by Larry Larkin MD at [facility] OR Date/Procedure? Med's given/comments 01/08/2015: Tunneled [...] informed this patient that they require a local delivery driver to be present and in the building to drive them home after this procedure. In the absence of a local delivery driver, IR will not be able to [...] EXTREMITY performed by Que Amaro MD at [facility] OR ??? Pro transplantation of kidney N/A 09/16/2015 @KIDNEY TRANSPLANT, WITHOUT RECIPIENT NEPHRECTOMY performed by Larry Larkin MD at [facility] OR ??? Pro transplant, prep cadaver renal graft N/A 09/16/2015 @PREPARATION CADAVERIC RENAL ALLOGRAFT performed by Larry Larkin MD at [facility] OR ??? N/A 09/16/2015 ORGAN ACQUISITION RENAL, CADAVERIC performed by Larry Larkin MD at [facility] OR Social History: Patient lives with spouse in [place], [place]. He reports he & not working [...] recommendations discussed with nursing. Assessment: Ethel Gomez Keniamarialuisaramón presents to POD #2 s/p kidney transplant. [...] 20 minutes PARKER GILL, PT 09/18/2015 Pager: [phone] Physical Therapy Rehabilitation Department * Pauline Miles RN - 09/18/2015 4:18 PM EDT 1615: [facility]. Skyla initiated. Call robles within reach. [facility] stable. [facility]. 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 Past Medical [...] History Narrative None on file Lives in [place], [place] in own home w/ spouse Mundo and 26 y.o. Son. Code Status: Full. Advance Directives:none in [facility]. Admission Status: written and signed by attending as IPI. Insurance: Medicare A,B and D through [email or web address] and BC/BS. Pharmacy: [address] Baseline Functional Status: self reports no [...] with changing needs. Mundo Barry RN, MSN Developer AnalystIt Communications Specialist of Care Management Pager [phone] Phone: [phone] * Brian Grande MD - 09/18/2015 1:00 [...] and dry without rash Laboratory: Recent Labs 09/18/1523009/17/15113009/17/15 0917 WBC 14.5* 16.4* 15.1* HGB 9.7* 11.1* 11.3* HCT 29.3* 33.9* 33.3* PLATELET 233 276 271 Recent Labs 09/18/1523009/17/15215409/17/15113009/17/15 0917 NA 137 137 -- 137 K 5.2* 5.0 5.6* Not Perf CL 102 101 -- 100 CO2 20* 19* -- 16* BUN 69* 67* -- 59* CREATININE 6.26* 6.73* -- 6.96* Recent Labs 09/18/1523009/17/15 0917 09/17/15 0330 AST 21 Not Perf 20 ALT 14 18 16 ALKPHOS 49 57 55 BILITOT 0.4 0.7 0.6 BILIDIR 0.1 Not Perf 0.2 Recent Labs 09/18/1523009/17/15215409/17/15 0917 09/17/15 0330 CALCIUM 8.8 8.5 8.6 8.3* PHOS 5.5* -- 6.9* 6.7* Microbiology: 09/16: Blood--pending Radiology/Studies/Procedures: None new Assessment: Ethelaudrey Bolden is a 65 y.o.male with history [...] BECK MD Fellow, Infectious Disease 09/18/2015 Pager [phone] Addendum Asked to comment on the possibility [...] the ceftriaxone. Selena Beck ID fellow Pager [phone] I agree with the recommendations of Dr. Beck after discussion with her and review of her note.I did not examine the patient myself today. Brian Grande MD * Tal Eagle MD - 09/18/2015 9:54 AM EDT TRANSPLANT NEPHROLOGY CONSULT PROGRESS NOTE REASON FOR CONSULTATION: medical management of transplant kidney referred by Dr. Larkin Ethel Bolden [id number] 1950 Transplant ID: Date: 09/18/2015 Patient: Ethel Bolden Transplant Date: 09/16/2015 Organ(s) donor [place] organ diagnosis: Renal biopsy showing diabetic and [...] kidney. Pt was getting HD MWF at [facility]. He was referred by Dr. Nunez for pre transplant evaluation for his kidney and was seen by Dr Eagle on 04/19/2015. He apparently had previouslybeen evaluated for transplant at [facility]. He was told he will need [...] Shagufta Villasenor MD Nephrology fellow Pager # [phone] I reviewed all of the above findings and assessment of Dr. Villasenor, examined the patient and formulated the recommendations which accurately reflect mine. * Dyan Rdoriguez Domenic - 09/18/2015 9:52 AM EDT INPATIENT DAILY [...] 1131 09/17/15 0917 09/17/15 0330 09/16/15 2150 09/16/15 1529 09/16/15 1008 WBC 14.5* 16.4* 15.1* 13.1* 13.5* 7.3 7.2 HGB 9.7* 11.1* 11.3* 11.2* 11.7* 11.5* 12.1* HCT 29.3* 33.9* 33.3* 32.8* 33.9* 33.3* 35.8* PLATELET 233 276 271 223 227 211 231 PT -- -- -- -- -- 14.3 14.0 INR -- -- -- -- -- 1.1 1.1 PTT -- -- -- -- -- 29 28 Recent Labs 09/18/15 0231 09/17/15 2155 09/17/15 1131 09/17/15 0917 09/17/15 0330 09/16/15 2150 09/16/15 1529 09/16/15 1008 NA 137 137 -- 137 [...] Urine picked up throughout shift. Weaning from WET END TESTER. Report given to next shift. * Samia [...] his second Simulect infusion. Samia Escalante RN [facility] Solid Organ Transplant [phone] (Pager: [phone]) * Tal Eagle MD - 09/17/2015 10:15 [...] -- -- 29 28 Recent Labs 09/17/15 0330 09/16/15 2150 09/16/15 1529 09/16/15 1008 NA 137 138 136 [...] kidney transplant. He is feelingwell this morning. Lisetter his K+ is elevated and his cr [...] recommendations which accurately reflect mine. * Jesus Bradley [facility] - 09/16/2015 5:40 PM EDT Clinical Pharmacist Note-Vanc Ethel Bolden [id number] 1950 Ethel Bolden is a 65 y.o. male is [...] 10) Labs: Vancomycin: No results found for: VANCOTR Creatinine clearance: CREATININE (mg/dL) Date Value 09/16/2015 [...] have. Alternately, during off-hours you may call [phone] to contact a pharmacist. JESUS BRADLEY RPH Pager [phone] * Brenda Masterson RN - 09/16/2015 11:24 [...] prior to OR. MD Saravia at bedside, Supervisor Ship Maintenance Services, Ninoska GERBER will return for consent. Will continue to monitor. documented in this encounter H&P Notes * Marcus Saravia MD - 09/16/2015 9:57 AM EDT [facility] Department of Transplant Surgery H&P Note CC: [...] EXTREMITY performed by Que Amaro MD at [facility] OR ALL: No Known Allergies MED: [...] ESRD 2/2 HTN who presents today for [facility] high risk donor kidney transplantation. Stat CBC, [...] when outof bed;room near unit station 09/19/15 9947 Musculoskeletal Interventions Activity/Level of Assistance up in [...] Review Outcome: Ongoing (Interventions Implemented as Appropriate) 09/19/15 2237 Plan of Care Review Plan of Care Outcome Status ongoing (interventions implemented as appropriate) Progress progress toward functional goals as expected Coping/Psychosocial Response Interventions Plan of Care Reviewed with patient OUTCOME EVALUATION NOTE: OUTCOME SUMMARY: Surgica sites WNL, СЕРГЕЙ, alessandro and well approximated. Patient transferred to IR for central access, for home Abx regime. Patients FC removed, patient voiding with no concerns. Reinforced teaching ofpatient documentation of I&O. Patient IVF d/c, and pt tolerating PO nutrition. Home Abx teaching completed during shift at approx 1800 [facility] PLAN MOVING FORWARD: Patient +Flatus awaiting [...] Review Outcome: Ongoing (Interventions Implemented as Appropriate) 09/17/1522109/18/151929 Plan of Care Review Plan of Care [...] Handling Outcome: Ongoing (Interventions Implemented as Appropriate) 09/18/15 193 Musculoskeletal Interventions Activity/Level of Assistance up ad [...] Control Outcome: Ongoing (Interventions Implemented as Appropriate) 09/18/15 1930 Coping/Psychosocial Response Interventions Counseling calming techniques promoted;verbalization [...] am is 5.2. Pt received prn oxycodone [id number]. Pt was OOB walked 100ft w/o any complaints. Pt slept between care overnight. PLAN MOVING FORWARD: Transfer to the floor. INDIVIDUALIZED FALL PREVENTION: Call robles in reach, pt close to nurse station, and bed in low position. Assistance: 1 assist w/walker Supervision: RN/CHERIE Surveillance: [employer] bedside monitor Goal: Individualization and Mutuality Outcome: Ongoing (Interventions Implemented as Appropriate) 09/16/15 1000 Mutuality/Individual Preferences What anxieties, fears or concerns do you have about your health or care? none What questions do you have about your health or care? none What information would help us give you more personalized care? none Goal: Fall Prevention-Safe Patient Handling Outcome: Ongoing (Interventions Implemented as Appropriate) 09/17/15199909/18/150 09/18/15 0537 Musculoskeletal Interventions Activity/Level of Assistance [...] transplant kidney referred by Dr. Larkin Ethel Gomez Keniamarialuisaramón [id number] 1950 Transplant ID: Date: 09/17/2015 Patient: Ethel Bolden Transplant Date: 09/16/2015 Organ(s) donor [place] organ diagnosis: Renal biopsy showing diabetic and [...] kidney. Pt was getting HD MWF at [facility]. He was referred by Dr. Nunez for pre transplant evaluation for his kidney and was seen by Dr Eagle on 04/19/2015. He apparently had previouslybeen evaluated for transplant at the [facility]. He was told he will need [...] EXTREMITY performed by Que Amaro MD at [facility] OR ??? Pro transplantation of kidney N/A 09/16/2015 @KIDNEY TRANSPLANT, WITHOUT RECIPIENT NEPHRECTOMY performed by Larry Larkin MD at [facility] OR ??? Pro transplant, prep cadaver renal graft N/A 09/16/2015 @PREPARATION CADAVERIC RENAL ALLOGRAFT performed by Larry Larkin MD at [facility] OR FH: Father had heart attack [...] 0.03 0.00 - 0.05 x10(3)/mcL Recent Labs 09/17/15 2155 09/17/15 0917 09/17/15 0330 09/16/15 2150 09/16/15 [...] ganciclovir Seen and Discussed w/ Dr. Shagufta Villaesnor MD Nephrology fellow Pager # [phone] I reviewed all of the above findings and assessment of Dr. Villasenor, examined the patient and formulated the recommendations which accurately reflect mine. 80 Min., >50%(40 min) in direct face to face residence counselor. o Discussion with the patient and/or [...] the donor had positive blood cultures. Mr. Boldne presented on 09/15 for a renal transplant [...] EXTREMITY performed by Que Amaro MD at [facility] OR ??? Pro transplantation of kidney N/A 09/16/2015 @KIDNEY TRANSPLANT, WITHOUT RECIPIENT NEPHRECTOMY performed by Larry Larkin MD at [facility] OR ??? Pro transplant, prep cadaver renal graft N/A 09/16/2015 @PREPARATION CADAVERIC RENAL ALLOGRAFT performed by Larry Larkin MD at [facility] OR Social History and Habits: - [...] dry without rash Laboratory: Recent Labs 09/17/15 11309/17/15 0917 09/17/15 0330 WBC 16.4* 15.1* 13.1* [...] continue to follow patient. Page us at [phone] with any further questions or concerns. Recommendations are above and were discussed with the primary treating team. ID will sign off. Please page if further consultation required. This patient was seen and discussed with ID attending Dr. Harjinder BECK MD Fellow, Infectious Disease 09/17/2015 Pager [phone] I interviewed, examined and discussed the patient with Dr. Beck, with whose findings and recommendations I concur. I also reviewed all pertinent labs and radiology. Would treat the GCS with ceftriaxone as per Dr. Beck, with duration in part driven by final results of final cultures from donor. Brian Grande MD * Op Note - Larry Larkin MD - 09/17/2015 11:03 AM EDT [facility] Operative Note Patient Name: Ethel Bolden : [id number] MR#: [id number] Case Date: 09/16/2015 Surgeon: Surgeon(s) and Role: * Larry Larkin MD - Primary * Marcus Saravia MD Preoperative diagnosis: Kidney transplant. [facility] #[id number] Postoperative diagnosis: Kidney transplant. [facility] #[id number] Procedure(s): @KIDNEY TRANSPLANT, WITHOUT RECIPIENT NEPHRECTOMY @PREPARATION [...] to adjacent structures, lymphocoele, urtereral leak, stroke, [place], and . 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 This was a [facility] high risk donor. Procedure and Findings: Following [...] LARKIN MD 09/17/2015 * Initial Assessments - Andrei Gill, PT - 09/17/2015 9:58 AM EDT Physical [...] EG ASHWINI FISTULA UPPER EXTREMITY performed by uQe Amaro MD at [facility] OR ??? Pro transplantation of kidney N/A 09/16/2015 @KIDNEY TRANSPLANT, WITHOUT RECIPIENT NEPHRECTOMY performed by Larry Larkin MD at [facility] OR ??? Pro transplant, prep cadaver renal graft N/A 09/16/2015 @PREPARATION CADAVERIC RENAL ALLOGRAFT performed by Larry Larkin MD at [facility] OR Social History: Patient lives with spouse in [place], [place]. He reports he & not working [...] Pt seen for evaluation today. Pain: using WET END TESTER but no c/o pain. Vital Signs: Sp02: [...] and wanting to sit to eat breakfast NQ=095/64 and RN notified. Standing: he preferred to hold walker in case during first walk. Informed Consent: The patient understands and agrees to the PT treatment plan and goals. Education: patient have been educated on Role of therapy and verbalizes understanding. Patient status, treatment, and mobility recommendations discussed with nursing. Assessment: Ethel Gomez Keniavaughn presents to POD #1 s/p kidney transplant. Patient OOB to chair with nursing first thing this morning. Pt demonstrated ability to stand and walk holding walker length of ISCU unit with help mainly for lines. The pt would benefit from skilled therapy services to maximizefunctional independence while in the hospital and to address limitations as noted above. Goals: To be achieved by 1816. 1. Pt. to perform bed mobility on [...] 0 minutes ANDREI GILL PT 09/17/2015 Pager: [phone] Physical Therapy Rehabilitation Department * Plan of Care - Magaly Peralta, JADEN - 09/17/2015 2:46 AM EDT Problem: General Plan of Care Goal: Plan of Care Review Outcome: Ongoing (Interventions Implemented as Appropriate) 09/17/15221 Plan of Care Review Plan of Care [...] with turning/repositioning Supervision: Hourly rounding, direct care, RN/CHERIE Surveillance: Telemetry and pulse oximetry [facility] OUT[facility]E [...] Operative Note Patient Name: Ethel Bolden : [id number] MR#: [id number] Case Date: 09/16/2015 Surgeon: Surgeon(s) and Role: * Larry Larkin MD - Primary * Marcus Saravia MD Preoperative diagnosis: Kidney transplant. [facility] #[id number] Postoperative diagnosis: Kidney transplant. [facility] #[id number] Procedure(s): @KIDNEY TRANSPLANT, WITHOUT RECIPIENT NEPHRECTOMY @PREPARATION [...] AM EDT Hospital Encounter [place] [id number] Arrived Scheduled Referrals Name Type Priority Associated Diagnoses Order Schedule OPAT: Order / Recommendation for Post Discharge IV Antibiotic Management Outpatient Referral Routine Renal transplant recipient Ordered: 09/18/2015 documented as of this encounter Procedures Procedure Name Priority Date/Time Associated Diagnosis Comments MANAGED SERVICES SALES CONSULTANT SCAN 09/21/2015 12:00 AM EDT POCT GLUCOSE [...] 09/16/2015 11:41 AM EDT Kidney transplant. [facility]OS #[id number] @PREPARATION CADAVERIC RENAL ALLOGRAFT (WRVU 9.24) 09/16/2015 11:41 AM EDT Kidney transplant. [facility] #[id number] @KIDNEY TRANSPLANT, WITHOUT RECIPIENT NEPHRECTOMY (WRVU 39.88) 09/16/2015 11:41 AM EDT Kidney transplant. [facility] #[id number] CMV ANTIBODY, IGG Routine 09/16/2015 10: 28 [...] in this encounter Results * SCAN DOC: MANAGED SERVICES SALES CONSULTANT (09/21/2015 12:00 AM EDT) Anatomical Region Laterality Modality Other Scanning Provider MEDIA MGR SCAN EXT O RDR/RSLT * POCT Glucose (09/20/2015 11:23 AM EDT) Glucose, POC 144 65 - 199 mg/dL [facility] Comment: Supplemental ranges: <140 mg/dL before meals <180 mg/dL all other times of the day Blood specimen (specimen) 09/20/2015 11:23 AM EDT 09/20/2015 11:23 AM EDT Larry Larkin MD POINT OF CARE TEST O RDERABLES [facility] [place] [address] * Tacrolimus level (09/20/2015 8:04 AM EDT) Tacrolimus <3.0 ng/mL [facility] Comment:Trough therapeutic: 5-15 ng/mL Blood specimen (specimen) 09/20/2015 8:04 AM EDT 09/20/2015 10:58 AM EDT Narrative Resulting Agency Comment Spec In Lab Larry Larkin MD CHEMISTRY ORDERABLES Performing Organization Address [facility] Co de Phone Number [facility] [place] [address] * POCT Glucose (09/20/2015 7:10 AM EDT) Glucose, POC 123 65 - 199 mg/dL [facility] Comment: Supplemental ranges: <140 mg/dL before meals <180 mg/dL all other times of the day Blood specimen (specimen) 09/20/2015 7:10 AM EDT 09/20/2015 7:10 AM EDT Larry Larkin MD POINT OF CARE TEST O RDERABLES Performing Organization Address City/[facility]/ZIP Co de Phone Number [facility] [place] [address] * (ABNORMAL) Differential, Automated (09/20/2015 4:58 AM EDT) Neutrophil % 80.6 % [facility] Neutrophil Absolute 7.65(H) 1.50 - 6.30 x10(3)/[facility] Lymph % 7.2 % [facility] Lymphocytes Abs 0.7(L) 1.0 - 3.6 x10(3)/[facility] Monocyte % 11.9 % [facility] Monocyte Abs 1.1(H) 0.2 - 1.0 x10(3)/[facility] Eos % 0.0 % [facility] Eosinophils Abs 0.0 0.0 - 0.5 x10(3)/[facility] Basophil % 0.0 % [facility] Baso Absolute 0.0 0.0 - 0.2 x10(3)/[facility] Immature Gran % 0.30 % [facility] Comment: Immature granulocytes(IG's)percentage and absolute count will include metamyelocytes, myelocytes, and promyelocytes. Blood smears from CBCs yielding IG's will be scanned manually for concordance. If this scan disagrees with the automated IG or if promyelocytes are noted, a manual differential will be performed. Immature Gran Absolute 0.03 0.00 - 0.05 x10(3)/[facility] Blood specimen (specimen) 09/20/2015 4:58 AM EDT 09/20/2015 5:17 AM EDT Narrative Resulting Agency Comment Spec In Lab Larry Larkin MD HEMATOLOGY ORDERABLE S [facility] [place] [address] * (ABNORMAL) Hemogram (09/20/2015 4:58 AM EDT) Pathologist [facility] White Blood Cell 9.5 4.0 - 10.0 x10(3)/[facility] Red Blood Cell 2.95(L) 4.63 - 6.08 x10(6)/mc L [facility] Hemoglobin 9.4(L) 13.7 - 17.5 gm/dL [facility] Hematocrit 27.5(L) 40.0 - 51.0 % [facility] Mean Cell Volume 93.2(H) 79.0 - 92.0 fL [facility] Mean Cell Hemoglobin 31.9 25.6 - 32.2 pg [facility] Mean Cell Hemoglobin Concentration 34.2 32.0 - 36.5 gm/dL [facility] Platelet 234 145 - 370 x10(3)/mc L [facility] RDW Standard Deviation 50.1(H) 35.0 - 46.0 fL [facility] RDW coefficient of variation 14.6(H) 10.9 - 14.4 % [facility] Mean Platelet Volume 9.4 9.0 - 12.0 fL [facility] Blood specimen (specimen) 09/20/2015 4:58 AM EDT 09/20/2015 5:17 AM EDT Narrative Resulting Agency Comment Spec In Lab Larry Larkin MD HEMATOLOGY ORDERABLE S Performing Organization Address City/State/[facility] Co de Phone Number [facility] [place] [address] * (ABNORMAL) Hepatic Function Panel (09/20/2015 4:58 AM EDT) Protein, Total 6.0(L) 6.1 - 8.0 gm/dL [facility] Albumin 3.1(L) 3.2 - 5.2 gm/dL [facility] Aspartate Aminotransferase 19 0 - 39 unit/L [facility] Alanine Aminotransferase 17 0 - 55 unit/L [facility] Alkaline Phosphatase 43 40 - 120 unit/L [facility] Bilirubin, Total 0.5 0.2 - 1.3 mg/dL [facility] Bilirubin, Direct 0.1 0.0 - 0.3 mg/dL [facility] Blood specimen (specimen) 09/20/2015 4:58 AM EDT 09/20/2015 5:17 AM EDT Narrative Resulting Agency Comment Spec In Lab Larry Larkin MD CHEMISTRY ORDERABLES Performing Organization Address City/[facility]/ZIP Co de Phone Number [facility] [place] [address] * Phosphorus (09/20/2015 4:58 AM EDT) Phosphorus 3.0 2.5 - 4.5 mg/dL [facility] Blood specimen (specimen) 09/20/2015 4:58 AM EDT 09/20/2015 5:17 AM EDT Narrative Resulting Agency Comment Spec In Lab Larry Larkin MD CHEMISTRY ORDERABLES Performing Organization Address [facility] Co de Phone Number [facility] [place] [address] * Magnesium (09/20/2015 4:58 AM EDT) Magnesium 0.89 0.69 - 1.07 mmol/L [facility] Blood specimen (specimen) 09/20/2015 4:58 AM EDT 09/20/2015 5:17 AM EDT Narrative Resulting Agency Comment Spec In Lab Larry Larkin MD CHEMISTRY ORDERABLES Performing Organization Address City/[facility] Co de Phone Number [facility] [place] [address] * (ABNORMAL) Basic Metabolic Panel (non-fasting) (09/20/2015 4:58 AM EDT) Glucose 130 65 - 199 mg/dL [facility] Comment:Diabetes: >=200 mg/d L plus symptoms Blood Urea Nitrogen 60(H) 10 - 20 mg/dL [facility] Creatinine 2.30(H) 0.80 - 1.50 mg/dL [facility] Comment: result rechecked-monty Please note that the pediatric reference intervals supplied above were not validated at [facility]. Results from pediatric patients should be interpreted in conjunction to the patient's age, height and muscle mass. Sodium 144 135 - 145 mmol/L [facility] Potassium 5.1(H) 3.5 - 5.0 mmol/L [facility] Comment: Please note: ??Patients with WBC >100,000 may have falsely elevated Potassium levels. ??For accurate Potassium quantification in these patients send serum separator tube (gold top) for subsequent determinations. ??Contact the Clinical Chemistry Laboratory if there are any questions. Chloride 108(H) 98 - 107 mmol/L [facility] Carbon Dioxide 23 22 - 31 mmol/L [facility] Anion Gap 13 5 - 15 mmol/L [facility] Calcium 9.0 8.5 - 10.5 mg/dL [facility] Est Glomerular Filtration Rate 28(L) >=60 [facility] Comment: This [...] the following links into your internet browser. [email or web address] Blood specimen (specimen) 09/20/2015 4:58 AM EDT 09/20/2015 5:17 AM EDT Narrative Resulting Agency Comment Spec In Lab Larry Larkin MD CHEMISTRY ORDERABLES [facility] [place] [address] * POCT Glucose (09/19/2015 9:00 PM EDT) Glucose, POC 183 65 - 199 mg/dL [facility] Comment: Supplemental ranges: <140 mg/dL before meals <180 mg/dL all other times of the day Blood specimen (specimen) 09/19/2015 9:00 PM EDT 09/19/2015 9:00 PM EDT Larry Larkin MD POINT OF CARE TEST O TED Performing Organization Address [facility] Co de Phone Number [facility] [place] [address] * POCT Glucose (09/19/2015 4:19 PM EDT) Glucose, POC 151 65 - 199 mg/dL [facility] Comment: Supplemental ranges: <140 mg/dL before meals <180 mg/dL all other times of the day Blood specimen (specimen) 09/19/2015 4:19 PM EDT 09/19/2015 4:19 PM EDT Larry Larkin MD POINT OF CARE TEST O TED Performing Organization Address [facility] de Phone Number [facility] [place] [address] * IR central venous access (09/19/2015 3:38 [...] Glucose, POC 122 65 - 199 mg/dL [facility] Comment: Supplemental ranges: <140 mg/dL before meals <180 mg/dL all other times of the day Blood specimen (specimen) 09/19/2015 11:56 AM EDT 09/19/2015 11:56 AM EDT Larry Larkin MD POINT OF CARE TEST O RDERABLES [facility] [place] [address] * POCT Glucose (09/19/2015 7:06 AM EDT) Glucose, POC 169 65 - 199 mg/dL [facility] Comment: Supplemental ranges: <140 mg/dL before meals <180 mg/dL all other times of the day Blood specimen (specimen) 09/19/2015 7:06 AM EDT 09/19/2015 7:06 AM EDT Larry Larkin MD POINT OF CARE TEST O RDERABLES [facility] [place] [address] * (ABNORMAL) Differential, Automated (09/19/2015 6:14 AM EDT) Neutrophil % 87.3 % [facility] Neutrophil Absolute 10.11(H) 1.50 - 6.30 x10(3)/mc L [facility] Lymph % 3.0 % [facility] Lymphocytes Abs 0.4(L) 1.0 - 3.6 x10(3)/mc L [facility] Monocyte % 9.5 % [facility] Monocyte Abs 1.1(H) 0.2 - 1.0 x10(3)/mc L [facility] Eos % 0.0 % [facility] Eosinophils Abs 0.0 0.0 - 0.5 x10(3)/mc L [facility] Basophil % 0.0 % [facility] Baso Absolute 0.0 0.0 - 0.2 x10(3)/mc L [facility] Immature Gran % 0.20 % [facility] Comment: Immature granulocytes(IG's)percentage and absolute count will include metamyelocytes, myelocytes, and promyelocytes. Blood smears from CBCs yielding IG's will be scanned manually for concordance. If this scan disagrees with the automated IG or if promyelocytes are noted, a manual differential will be performed. Immature Gran Absolute 0.02 0.00 - 0.05 x10(3)/mc L [facility] Blood specimen (specimen) 09/19/2015 6:14 AM EDT 09/19/2015 6:23 AM EDT Narrative Resulting Agency Comment Spec In Lab Larry Larkin MD HEMATOLOGY ORDERABLE S [facility] [place] [address] * (ABNORMAL) Hemogram (09/19/2015 6:14 AM EDT) White Blood Cell 11.6(H) 4.0 - 10.0 x10(3)/mc L [facility] Red Blood Cell 2.92(L) 4.63 - 6.08 x10(6)/mc L [facility] Hemoglobin 9.1(L) 13.7 - 17.5 gm/dL [facility] Hematocrit 27.1(L) 40.0 - 51.0 % [facility] Mean Cell Volume 92.8(H) 79.0 - 92.0 fL [facility] Mean Cell Hemoglobin 31.2 25.6 - 32.2 pg [facility] Mean Cell Hemoglobin Concentration 33.6 32.0 - 36.5 gm/dL [facility] Platelet 206 145 - 370 x10(3)/mc L [facility] RDW Standard Deviation 48.3(H) 35.0 - 46.0 fL [facility] RDW coefficient of variation 14.2 10.9 - 14.4 % [facility] Mean Platelet Volume 9.3 9.0 - 12.0 fL [facility] Blood specimen (specimen) 09/19/2015 6:14 AM EDT 09/19/2015 6:23 AM EDT Narrative Resulting Agency Comment Spec In Lab Larry Larkin MD HEMATOLOGY ORDERABLE S [facility] [place] [address] * Cryoglobulin (09/19/2015 6:14 AM EDT) Cryoglobulin See Note [facility] Comment: Cryoglobulins negative at 24 and 72 hours. This test was developed and its performance characteristics determined by [facility]. It has not been cleared or [...] Larkin MD CHEMISTRY ORDERABLES Performing Organization Address [facility] Co de Phone Number [facility] [place] [address] * (ABNORMAL) Hepatic Function Panel (09/19/2015 6:14 AM EDT) [facility] Protein, Total 6.1 6.1 - 8.0 gm/dL [facility] Albumin 3.1(L) 3.2 - 5.2 gm/dL [facility] Aspartate Aminotransferase 20 0 - 39 unit/L [facility] Alanine Aminotransferase 13 0 - 55 unit/L [facility] Alkaline Phosphatase 43 40 - 120 unit/L [facility] Bilirubin, Total 0.4 0.2 - 1.3 mg/dL [facility] Bilirubin, Direct 0.1 0.0 - 0.3 mg/dL [facility] Blood specimen (specimen) 09/19/2015 6:14 AM EDT 09/19/2015 6:23 AM EDT Narrative Resulting Agency Comment Spec In Lab Larry Larkin MD CHEMISTRY ORDERABLES Performing Organization Address [facility] Co de Phone Number [facility] [place] [address] * Phosphorus (09/19/2015 6:14 AM EDT) [facility] Phosphorus 3.9 2.5 - 4.5 mg/dL [facility] Blood specimen (specimen) 09/19/2015 6:14 AM EDT 09/19/2015 6:23 AM EDT Narrative Resulting Agency Comment Spec In Lab Larry Larkin MD CHEMISTRY ORDERABLES Performing Organization Address [facility] Co de Phone Number [facility] [place] [address] * Magnesium (09/19/2015 6:14 AM EDT) Magnesium 0.85 0.69 - 1.07 mmol/L [facility] Blood specimen (specimen) 09/19/2015 6:14 AM EDT 09/19/2015 6:23 AM EDT Narrative Resulting Agency Comment Spec In Lab Larry Larkin MD CHEMISTRY ORDERABLES Performing Organization Address [facility] de Phone Number [facility] [place] [address] * (ABNORMAL) Basic Metabolic Panel (non-fasting) (09/19/2015 6:14 AM EDT) Glucose 138 65 - 199 mg/dL [facility] Comment:Diabetes: >=200 mg/d L plus symptoms Blood Urea Nitrogen 64(H) 10 - 20 mg/dL [facility] Creatinine 3.25(H) 0.80 - 1.50 mg/dL [facility] Comment: result rechecked-mkf Please note that the pediatric reference intervals supplied above were not validated at [facility]. Results from pediatric patients should be interpreted in conjunction to the patient's age, height and muscle mass. Sodium 142 135 - 145 mmol/L [facility] Potassium 4.6 3.5 - 5.0 mmol/L [facility] Comment: Please note: ??Patients with WBC >100,000 may have falsely elevated Potassium levels. ??For accurate Potassium quantification in these patients send serum separator tube (gold top) for subsequent determinations. ??Contact the Clinical Chemistry Laboratory if there are any questions. Chloride 108(H) 98 - 107 mmol/L [facility] Carbon Dioxide 21(L) 22 - 31 mmol/L [facility] Anion Gap 13 5 - 15 mmol/L [facility] Calcium 8.8 8.5 - 10.5 mg/dL [facility] Est Glomerular Filtration Rate 19(L) >=60 [facility] Comment: This [...] the following links into your internet browser. [email or web address] Blood specimen (specimen) 09/19/2015 6:14 AM EDT 09/19/2015 6:23 AM EDT Narrative Resulting Agency Comment Spec In Lab Larry Larkin MD CHEMISTRY ORDERABLES Performing Organization Address [facility]/ZIP Co de Phone Number [facility] [place] [address] * (ABNORMAL) Complement, Total (09/19/2015 6:14 AM EDT) Complement, Total 22(L) 30 - 75 unit/mL [facility] Comment: Test Performed by: [employer] [address] [address] Sole Layer Hand: Rosetta Conway, Ph.D. Blood specimen (specimen) 09/19/2015 6:14 AM EDT 09/19/2015 9:09 AM EDT Narrative Resulting Agency Comment Spec In Lab Larry Larkin MD CHEMISTRY ORDERABLES Performing Organization Address City/[facility]/ZIP Co de Phone Number [facility] [place] [address] * C4 Complement (09/19/2015 6:14 AM EDT) Complement C4 29 10 - 40 mg/dL [facility] Blood specimen (specimen) 09/19/2015 6:14 AM EDT 09/19/2015 6:23 AM EDT Narrative Resulting Agency Comment Spec In Lab Larry Larkin MD CHEMISTRY ORDERABLES Performing Organization Address City/[facility] Co de Phone Number [facility] [place] [address] * C3 Complement (09/19/2015 6:14 AM EDT) Complement C3 100 90 - 180 mg/dL [facility] Blood specimen (specimen) 09/19/2015 6:14 AM EDT 09/19/2015 6:23 AM EDT Narrative Resulting Agency Comment Spec In Lab Larry Larkin MD CHEMISTRY ORDERABLES Performing Organization Address [facility] Co de Phone Number [facility] [place] [address] * POCT Glucose (09/18/2015 8:45 PM EDT) Glucose, POC 186 65 - 199 mg/dL [facility] Comment: Supplemental ranges: <140 mg/dL before meals <180 mg/dL all other times of the day Blood specimen (specimen) 09/18/2015 8:45 PM EDT 09/18/2015 8:45 PM EDT Larry Larkin MD POINT OF CARE TEST O RDERABLES Performing Organization Address [facility] Co de Phone Number [facility] [place] [address] * POCT Glucose (09/18/2015 3:48 PM EDT) Glucose, POC 173 65 - 199 mg/dL [facility] Comment: Supplemental ranges: <140 mg/dL before meals <180 mg/dL all other times of the day Blood specimen (specimen) 09/18/2015 3:48 PM EDT 09/18/2015 3:48 PM EDT Larry Larkin MD POINT OF CARE TEST O TED Performing Organization Address [facility] Co de Phone Number [facility] [place] [address] * POCT Glucose (09/18/2015 12:10 PM EDT) Glucose, POC 186 65 - 199 mg/dL [facility] Comment: Supplemental ranges: <140 mg/dL before meals <180 mg/dL all other times of the day Blood specimen (specimen) 09/18/2015 12:10 PM EDT 09/18/2015 12:10 PM EDT Larry Larkin MD POINT OF CARE TEST O TED Performing Organization Address [facility] Co de Phone Number [facility] [place] [address] * POCT Glucose (09/18/2015 7:58 AM EDT) Glucose, POC 133 65 - 199 mg/dL [facility] Comment: Supplemental ranges: <140 mg/dL before meals <180 mg/dL all other times of the day Blood specimen (specimen) 09/18/2015 7:58 AM EDT 09/18/2015 7:58 AM EDT Larry Larkin MD POINT OF CARE TEST O TED Performing Organization Address [facility] Co de Phone Number [facility] [place] [address] * (ABNORMAL) Differential, Automated (09/18/2015 2:31 AM EDT) Neutrophil % 92.1 % [facility] Neutrophil Absolute 13.35(H) 1.50 - 6.30 x10(3)/[facility] Lymph % 4.5 % [facility] Lymphocytes Abs 0.6(L) 1.0 - 3.6 x10(3)/[facility] Monocyte % 3.0 % [facility] Monocyte Abs 0.4 0.2 - 1.0 x10(3)/[facility] Eos % 0.0 % [facility] Eosinophils Abs 0.0 0.0 - 0.5 x10(3)/[facility] Basophil % 0.1 % [facility] Baso Absolute 0.0 0.0 - 0.2 x10(3)/[facility] Immature Gran % 0.30 % [facility] Comment: Immature granulocytes(IG's)percentage and absolute count will include metamyelocytes, myelocytes, and promyelocytes. Blood smears from CBCs yielding IG's will be scanned manually for concordance. If this scan disagrees with the automated IG or if promyelocytes are noted, a manual differential will be performed. Immature Gran Absolute 0.04 0.00 - 0.05 x10(3)/[facility] Blood specimen (specimen) 09/18/2015 2:31 AM EDT 09/18/2015 2:50 AM EDT Narrative Resulting Agency Comment Spec In Lab Larry Larkin MD HEMATOLOGY ORDERABLE S [facility] [place] [address] * (ABNORMAL) Hemogram (09/18/2015 2:31 AM EDT) White Blood Cell 14.5(H) 4.0 - 10.0 x10(3)/[facility] Red Blood Cell 3.13(L) 4.63 - 6.08 x10(6)/[facility] Hemoglobin 9.7(L) 13.7 - 17.5 gm/dL [facility] Hematocrit 29.3(L) 40.0 - 51.0 % [facility] Mean Cell Volume 93.6(H) 79.0 - 92.0 fL [facility] Mean Cell Hemoglobin 31.0 25.6 - 32.2 pg [facility] Mean Cell Hemoglobin Concentration 33.1 32.0 - 36.5 gm/dL [facility] Platelet 233 145 - 370 x10(3)/mc L [facility] RDW Standard Deviation 48.8(H) 35.0 - 46.0 fL [facility] RDW coefficient of variation 14.3 10.9 - 14.4 % [facility] Mean Platelet Volume 9.3 9.0 - 12.0 fL [facility] Blood specimen (specimen) 09/18/2015 2:31 AM EDT 09/18/2015 2:50 AM EDT Narrative Resulting Agency Comment Spec In Lab Larry Larkin MD HEMATOLOGY ORDERABLE S [facility] [place] [address] * (ABNORMAL) Hepatic Function Panel (09/18/2015 2:31 AM EDT) Protein, Total 6.1 6.1 - 8.0 gm/dL [facility] Albumin 3.1(L) 3.2 - 5.2 gm/dL [facility] Aspartate Aminotransferase 21 0 - 39 unit/L [facility] Alanine Aminotransferase 14 0 - 55 unit/L [facility] Alkaline Phosphatase 49 40 - 120 unit/L [facility] Bilirubin, Total 0.4 0.2 - 1.3 mg/dL [facility] Bilirubin, Direct 0.1 0.0 - 0.3 mg/dL [facility] Blood specimen (specimen) 09/18/2015 2:31 AM EDT 09/18/2015 2:50 AM EDT Narrative Resulting Agency Comment Spec In Lab Larry Larkin MD CHEMISTRY ORDERABLES Performing Organization Address [facility] Co de Phone Number [facility] [place] [address] * (ABNORMAL) Phosphorus (09/18/2015 2:31 AM EDT) Phosphorus 5.5(H) 2.5 - 4.5 mg/dL [facility] Blood specimen (specimen) 09/18/2015 2:31 AM EDT 09/18/2015 2:50 AM EDT Narrative Resulting Agency Comment Spec In Lab Larry Larkin MD CHEMISTRY ORDERABLES Performing Organization Address [facility] de Phone Number [facility] [place] [address] * Magnesium (09/18/2015 2:31 AM EDT) Magnesium 0.77 0.69 - 1.07 mmol/L [facility] Blood specimen (specimen) 09/18/2015 2:31 AM EDT 09/18/2015 2:50 AM EDT Narrative Resulting Agency Comment Spec In Lab Larry Larkin MD CHEMISTRY ORDERABLES Performing Organization Address [facility] Co de Phone Number [facility] [place] [address] * (ABNORMAL) Basic Metabolic Panel (non-fasting) (09/18/2015 2:31 AM EDT) Glucose 168 65 - 199 mg/dL [facility] Comment:Diabetes: >=200 mg/d L plus symptoms Blood Urea Nitrogen 69(H) 10 - 20 mg/dL [facility] Creatinine 6.26(H) 0.80 - 1.50 mg/dL [facility] Comment: Please note that the pediatric reference intervals supplied above were not validated at [facility]. Results from pediatric patients should be interpreted in conjunction to the patient's age, height and muscle mass. Sodium 137 135 - 145 mmol/L [facility] Potassium 5.2(H) 3.5 - 5.0 mmol/L [facility] Comment: Please note: ??Patients with WBC >100,000 may have falsely elevated Potassium levels. ??For accurate Potassium quantification in these patients send serum separator tube (gold top) for subsequent determinations. ??Contact the Clinical Chemistry Laboratory if there are any questions. Chloride 102 98 - 107 mmol/L [facility] Carbon Dioxide 20(L) 22 - 31 mmol/L [facility] Anion Gap 15 5 - 15 mmol/L [facility] Calcium 8.8 8.5 - 10.5 mg/dL [facility] Est Glomerular Filtration Rate 9(L) >=60 [facility] Comment: This [...] the following links into your internet browser. [email or web address] Blood specimen (specimen) 09/18/2015 2:31 AM EDT 09/18/2015 2:50 AM EDT Narrative Resulting Agency Comment Spec In Lab Larry Larkin MD CHEMISTRY ORDERABLES [facility] [place] [address] * (ABNORMAL) Basic Metabolic Panel (non-fasting) (09/17/2015 9:55 PM EDT) Glucose 190 65 - 199 mg/dL [facility] Comment:Diabetes: >=200 mg/d L plus symptoms Blood Urea Nitrogen 67(H) 10 - 20 mg/dL [facility] Creatinine 6.73(H) 0.80 - 1.50 mg/dL [facility] Comment: Please note that the pediatric reference intervals supplied above were not validated at [facility]. Results from pediatric patients should be interpreted in conjunction to the patient's age, height and muscle mass. Sodium 137 135 - 145 mmol/L [facility] Potassium 5.0 3.5 - 5.0 mmol/L [facility] Comment: Please note: ??Patients with WBC >100,000 may have falsely elevated Potassium levels. ??For accurate Potassium quantification in these patients send serum separator tube (gold top) for subsequent determinations. ??Contact the Clinical Chemistry Laboratory if there are any questions. Chloride 101 98 - 107 mmol/L [facility] Carbon Dioxide 19(L) 22 - 31 mmol/L [facility] Anion Gap 17(H) 5 - 15 mmol/L [facility] Calcium 8.5 8.5 - 10.5 mg/dL [facility] Est Glomerular Filtration Rate 8(L) >=60 [facility] Comment: This [...] the following links into your internet browser. [email or web address] Blood specimen (specimen) 09/17/2015 9:55 PM EDT 09/17/2015 9:59 PM EDT Narrative Resulting Agency Comment Spec In Lab Larry Larkin MD CHEMISTRY ORDERABLES [facility] [place] [address] * US Renal Transplant Left (09/17/2015 12:37 PM EDT) Anatomical Region Laterality Modality Abdomen Left Ultrasound 09/17/2015 1:09 PM EDT Narrative 09/17/2015 1:39 PM EDT Transplant ? (Signed Final 09/17/2015 01:38 pm) Patient Info ID #: ? [id number] ? : [birth year] (65 yrs) Name: ? ETHEL Gomez KENIAMARIALUISARAMÓN ? Visit Date:09/17/2015 01:09 pm Performed By Performed By: ? Jessee Espinal RDMS Attending: ?Jewel GERBER, Preeti Sanford Associate: ?Alan GERBER, Victor Manuel Acuña. Referred By: ?LARRY LARKIN MD Service(s) Provided ??URTPL - Ultrasound Renal Transplant - Left - [id number] Indications ??POD#1 s/p renal transplant on Left; [...] Final 09/17/2015 01:38pm) Patient Info ID #: [id number] : [birth year] (65 yrs) Name: ETHEL BOLDEN Visit Date:09/17/2015 01:09 pm Performed By Performed By: Jessee Espinal RDMS Attending: Preeti Holloway MD Associate: Victor Manuel Phillips MD Referred By: LARRY LARKIN MD Service(s) Provided URTPL - Ultrasound Renal Transplant - Left - [id number] Indications POD#1 s/p renal transplant on Left; [...] Signed Final Report 09/17/2015 01:38 pm Larry Larkin MD IM US GEN ORDERABLE S * (ABNORMAL) Differential, Automated (09/17/2015 11:31 AM EDT) Neutrophil % 88.3 % [facility] Neutrophil Absolute 14.45(H) 1.50 - 6.30 x10(3)/mc L [facility] Lymph % 3.1 % [facility] Lymphocytes Abs 0.5(L) 1.0 - 3.6 x10(3)/mc L [facility] Monocyte % 8.3 % [facility] Monocyte Abs 1.4(H) 0.2 - 1.0 x10(3)/mc L [facility] Eos % 0.0 % [facility] Eosinophils Abs 0.0 0.0 - 0.5 x10(3)/mc L [facility] Basophil % 0.1 % [facility] Baso Absolute 0.0 0.0 - 0.2 x10(3)/[facility] Immature Gran % 0.20 % [facility] Comment: Immature granulocytes(IG's)percentage and absolute count will include metamyelocytes, myelocytes, and promyelocytes. Blood smears from CBCs yielding IG's will be scanned manually for concordance. If this scan disagrees with the automated IG or if promyelocytes are noted, a manual differential will be performed. Immature Gran Absolute 0.03 0.00 - 0.05 x10(3)/[facility] Blood specimen (specimen) 09/17/2015 11:31 AM EDT 09/17/2015 11:38 AM EDT Narrative Resulting Agency Comment Spec In Lab Larry Larkin MD HEMATOLOGY ORDERABLE S Performing Organization Address City/State/[facility] Co de Phone Number [facility] [place] [address] * (ABNORMAL) Hemogram (09/17/2015 11:31 AM EDT) White Blood Cell 16.4(H) 4.0 - 10.0 x10(3)/[facility] Red Blood Cell 3.60(L) 4.63 - 6.08 x10(6)/ L [facility] Hemoglobin 11.1(L) 13.7 - 17.5 gm/dL [facility] Hematocrit 33.9(L) 40.0 - 51.0 % [facility] Mean Cell Volume 94.2(H) 79.0 - 92.0 fL [facility] Mean Cell Hemoglobin 30.8 25.6 - 32.2 pg [facility] Mean Cell Hemoglobin Concentration 32.7 32.0 - 36.5 gm/dL [facility] Platelet 276 145 - 370 x10(3)/ L [facility] RDW Standard Deviation 49.3(H) 35.0 - 46.0 fL [facility] RDW coefficient of variation 14.3 10.9 - 14.4 % [facility] Mean Platelet Volume 9.4 9.0 - 12.0 fL [facility] Blood specimen (specimen) 09/17/2015 11:31 AM EDT 09/17/2015 11:38 AM EDT Narrative Resulting Agency Comment Spec In Lab Larry Larkin MD HEMATOLOGY ORDERABLE S [facility] [place] [address] * HIV Quant (09/17/2015 11:31 AM EDT) Pathologist [facility] HIV Viral Load Result (Qualitative) * RESULT: [...] Administration. Gibson Good, Ph.D. Director, Molecular Pathology [facility] Comment: [VERIFIED DATE]09.21.15 Verified By:Xiomy Gupta (Electronic Signature) Blood specimen (specimen) 09/17/2015 11:31 AM EDT 09/20/2015 2:24 PM EDT Narrative Resulting Agency Comment Spec In Lab Que Amaro MD HEMATOLOGY ORD ERABLES [facility] [place] [address] * HBV Quant (09/17/2015 11:31 AM EDT) [facility] Hepatitis B DNA, quantitative, PCR Result: <20 [...] This assay is being performed in the [facility] Molecular Pathology Laboratory. Gibson Good, Ph.D. Director, Molecular Pathology [facility] Blood specimen (specimen) 09/17/2015 11:31 AM EDT 09/21/2015 9:44 AM EDT Narrative Resulting Agency Comment Spec In Lab Que Amaro MD CHEMISTRY ORDE [facility] Performing Organization Address [facility]/ZIP Co de Phone Number [facility] [place] [address] * (ABNORMAL) Potassium (09/17/2015 11:31 AM EDT) [facility] Potassium 5.6(H) 3.5 - 5.0 mmol/L [facility] [...] Larkin MD CHEMISTRY ORDERABLES Performing Organization Address [facility]/ZIP Co de Phone Number [facility] [place] [address] * Blood culture (09/17/2015 10:36 AM EDT) [facility] Blood Culture No growth at 5 days. [facility] Blood specimen (specimen) ARTERIAL LINE / Unknown 09/17/2015 10:36 AM EDT 09/17/2015 10:46 AM EDT Narrative Resulting Agency Comment Spec In Lab Larry Larkin MD MICROBIOLOGY - BLOOD ORDERABLES Performing Organization Address City/[facility]/ZIP Co de Phone Number [facility] [place] [address] * Hep C Viral RNA NS3 Genotype (09/17/2015 10:17 AM EDT) HCV RNA NS3 Genotype See Note [facility] Comment: Please see scanned report in Chart Review under the Non-DH Laboratory Heading. Test performed by [facility], [address] [place] [address] Blood specimen (specimen) 09/17/2015 10:17 AM EDT 09/17/2015 11:42 AM EDT Narrative Resulting Agency Comment Spec In Lab Larry Larkin MD CHEMISTRY ORDERABLES Performing Organization Address [facility] Co de Phone Number [facility] [place] [address] * Hepatitis C RNA, quantitative, PCR (09/17/2015 10:17 AM EDT) HCV Viral Load 323,972 IU/mL [facility] HCV Viral Load Result: [id number] IU/mL Indication for Study: Hepatitis C Infection Analysis: A quantitiative real time reverse transcriptase PCR assay was performed on extracted viral RNA for the purpose of quantification. Sample: plasma (1 mL minimum volume) Method: Kirsten Nik TaqMAN 48 HCV Linear Range: 15 IU/mL - 100,000,000IU/mL (95% CI) Note: This assay is being performed in the [facility] Molecular Pathology Laboratory. Gibson Good, Ph.D. Director, Molecular Pathology [facility] Comment: [VERIFIED DATE]09.21.15 Verified By:Xiomy Gupta (Electronic Signature) Blood specimen (specimen) 09/17/2015 10:17 AM EDT 09/20/2015 2:34 PM EDT Narrative Resulting Agency Comment Spec In Lab Larry Larkin MD MOLECULAR ORDERABLES Performing Organization Address [facility] Co de Phone Number [facility] [place] [address] * Blood culture (09/17/2015 10:17 AM EDT) Blood Culture No growth at 5 days. [facility] Blood specimen (specimen) ANTECUBITAL REGION STRUCTURE / Unknown 09/17/2015 10:17 AM EDT 09/17/2015 10:46 AM EDT Narrative Resulting Agency Comment Spec In Lab Larry Larkin MD MICROBIOLOGY - BLOOD ORDERABLES Performing Organization Address [facility] Co de Phone Number [facility] [place] [address] * (ABNORMAL) Phosphorus (09/17/2015 9:17 AM EDT) Phosphorus 6.9(H) 2.5 - 4.5 mg/dL [facility] Blood specimen (specimen) Venous Draw / Unknown 09/17/2015 9:17 AM EDT 09/17/2015 9:41 AM EDT Narrative Resulting Agency Comment Spec In Lab Larry Larkin MD CHEMISTRY ORDERABLES Performing Organization Address City/[facility] Co de Phone Number [facility] [place] [address] * Magnesium (09/17/2015 9:17 AM EDT) Magnesium 0.75 0.69 - 1.07 mmol/L [facility] Blood specimen (specimen) Venous Draw / Unknown 09/17/2015 9:17 AM EDT 09/17/2015 9:41 AM EDT Narrative Resulting Agency Comment Spec In Lab Larry Larkin MD CHEMISTRY ORDERABLES Performing Organization Address City/[facility]/[place] [address] * (ABNORMAL) Differential, Automated (09/17/2015 9:17 AM EDT) Neutrophil % 90.3 % [facility] Neutrophil Absolute 13.67(H) 1.50 - 6.30 x10(3)/mc L [facility] Lymph % 3.7 % [facility] Lymphocytes Abs 0.6(L) 1.0 - 3.6 x10(3)/mc L [facility] Monocyte % 5.6 % [facility] Monocyte Abs 0.8 0.2 - 1.0 x10(3)/ L [facility] Eos % 0.0 % [facility] Eosinophils Abs 0.0 0.0 - 0.5 x10(3)/ L [facility] Basophil % 0.1 % [facility] Baso Absolute 0.0 0.0 - 0.2 x10(3)/mc L [facility] Immature Gran % 0.30 % [facility] Comment: Immature granulocytes(IG's)percentage and absolute count will include metamyelocytes, myelocytes, and promyelocytes. Blood smears from CBCs yielding IG's will be scanned manually for concordance. If this scan disagrees with the automated IG or if promyelocytes are noted, a manual differential will be performed. Immature Gran Absolute 0.04 0.00 - 0.05 x10(3)/mc L [facility] Blood specimen (specimen) 09/17/2015 9:17 AM EDT 09/17/2015 9:41 AM EDT Narrative Resulting Agency Comment Spec In Lab Larry Larkin MD HEMATOLOGY ORDERABLE S Performing Organization Address City/[facility]/[place] [address] * (ABNORMAL) Hemogram (09/17/2015 9:17 AM EDT) White Blood Cell 15.1(H) 4.0 - 10.0 x10(3)/mc L [facility] Red Blood Cell 3.58(L) 4.63 - 6.08 x10(6)/mc L [facility] Hemoglobin 11.3(L) 13.7 - 17.5 gm/dL [facility] Hematocrit 33.3(L) 40.0 - 51.0 % [facility] Mean Cell Volume 93.0(H) 79.0 - 92.0 fL [facility] Mean Cell Hemoglobin 31.6 25.6 - 32.2 pg [facility] Mean Cell Hemoglobin Concentration 33.9 32.0 - 36.5 gm/dL [facility] Platelet 271 145 - 370 x10(3)/mc L [facility] RDW Standard Deviation 49.5(H) 35.0 - 46.0 fL [facility] RDW coefficient of variation 14.5(H) 10.9 - 14.4 % [facility] Mean Platelet Volume 9.5 9.0 - 12.0 fL [facility] Blood specimen (specimen) 09/17/2015 9:17 AM EDT 09/17/2015 9:41 AM EDT Narrative Resulting Agency Comment Spec In Lab Larry Larkin MD HEMATOLOGY ORDERABLE S [facility] [place] [address] * (ABNORMAL) Comprehensive metabolic panel (non-fasting) (09/17/2015 9:17 AM EDT) Pathologist [facility] Glucose 157 65 - 199 mg/dL [facility] Comment:Diabetes: >=200 mg/d L plus symptoms Blood Urea Nitrogen 59(H) 10 - 20 mg/dL [facility] Creatinine 6.96(H) 0.80 - 1.50 mg/dL [facility] Comment: Please note that the pediatric reference intervals supplied above were not validated at [facility]. Results from pediatric patients should be interpreted in conjunction to the patient's age, height and muscle mass. Sodium 137 135 - 145 mmol/L [facility] Potassium Not Perf 3.5 - 5.0 mmol/L [facility] Comment: Unable to quantitate [...] questions. Chloride 100 98 - 107 mmol/L [facility] Carbon Dioxide 16(L) 22 - 31 mmol/L [facility] Anion Gap 21(H) 5 - 15 mmol/L [facility] Calcium 8.6 8.5 - 10.5 mg/dL [facility] Protein, Total 6.7 6.1 - 8.0 gm/dL [facility] Albumin 3.5 3.2 - 5.2 gm/dL [facility] Aspartate Aminotransferase Not Perf 0 - 39 unit/L [facility] Comment: Unable to quantitate due to sample hemolysis. ??Sample redraw suggested. Called by:nasra _, Read back by: rafy hooker, Date/Time:09/17/15 10:48. Alanine Aminotransferase 18 0 - 55 unit/L [facility] Alkaline Phosphatase 57 40 - 120 unit/L [facility] Bilirubin, Total 0.7 0.2 - 1.3 mg/dL [facility] Bilirubin, Direct Not Perf 0.0 - 0.3 mg/dL [facility] Comment: Unable to quantitate due to sample hemolysis. ??Sample redraw suggested. Called by:nasra _, Read back by: rafy hooker, Date/Time:09/17/15 10:48. Est Glomerular Filtration Rate 8(L) >=60 [facility] Comment: This [...] the following links into your internet browser. [email or web address] Blood specimen (specimen) 09/17/2015 9:17 AM EDT 09/17/2015 9:41 AM EDT Narrative Resulting Agency Comment Spec In Lab Larry Larkin MD CHEMISTRY ORDERABLES Performing Organization Address [facility] Co de Phone Number [facility] [place] [address] * Vancomycin, trough (09/17/2015 9:17 AM EDT) Pathologist [facility] Vancomycin, Trough 24.6 mg/L [facility] Comment: Therapeutic [...] Larkin MD CHEMISTRY ORDERABLES Performing Organization Address [facility] Co de Phone Number [facility] [place] [address] * POCT Glucose (09/17/2015 8:58 AM EDT) Pathologist [facility] Glucose, POC 143 65 - 199 mg/dL [facility] Comment: Supplemental ranges: <140 mg/dL before meals <180 mg/dL all other times of the day Blood specimen (specimen) 09/17/2015 8:58 AM EDT 09/17/2015 8:58 AM EDT Larry Larkin MD POINT OF CARE TEST O RDERABLES [facility] [place] [address] * (ABNORMAL) Differential, Automated (09/17/2015 3:30 AM EDT) [facility] Neutrophil % 92.5 % [facility] Neutrophil Absolute 12.16(H) 1.50 - 6.30 x10(3)/mc L [facility] Lymph % 3.6 % [facility] Lymphocytes Abs 0.5(L) 1.0 - 3.6 x10(3)/mc L [facility] Monocyte % 3.5 % [facility] Monocyte Abs 0.5 0.2 - 1.0 x10(3)/mc L [facility] Eos % 0.1 % [facility] Eosinophils Abs 0.0 0.0 - 0.5 x10(3)/mc L [facility] Basophil % 0.1 % [facility] Baso Absolute 0.0 0.0 - 0.2 x10(3)/mc L [facility] LABORATORY Immature Gran % 0.20 % [facility] Comment: Immature granulocytes(IG's)percentage and absolute count will include metamyelocytes, myelocytes, and promyelocytes. Blood smears from CBCs yielding IG's will be scanned manually for concordance. If this scan disagrees with the automated IG or if promyelocytes are noted, a manual differential will be performed. Immature Gran Absolute 0.02 0.00 - 0.05 x10(3)/mc L [facility] Blood specimen (specimen) 09/17/2015 3:30 AM EDT 09/17/2015 3:36 AM EDT Narrative Resulting Agency Comment Spec In Lab Larry Larkin MD HEMATOLOGY ORDERABLE S Performing Organization Address City/[facility]/ZIP Co de Phone Number [facility] [place] [address] * (ABNORMAL) Hemogram (09/17/2015 3:30 AM EDT) White Blood Cell 13.1(H) 4.0 - 10.0 x10(3)/ L [facility] Red Blood Cell 3.56(L) 4.63 - 6.08 x10(6)/[facility] LABORATORY Hemoglobin 11.2(L) 13.7 - 17.5 gm/dL [facility] Hematocrit 32.8(L) 40.0 - 51.0 % [facility] Mean Cell Volume 92.1(H) 79.0 - 92.0 fL [facility] Mean Cell Hemoglobin 31.5 25.6 - 32.2 pg [facility] Mean Cell Hemoglobin Concentration 34.1 32.0 - 36.5 gm/dL [facility] Platelet 223 145 - 370 x10(3)/[facility] LABORATORY RDW Standard Deviation 48.0(H) 35.0 - 46.0 fL [facility] RDW coefficient of variation 14.3 10.9 - 14.4 % [facility] Mean Platelet Volume 9.4 9.0 - 12.0 fL [facility] Blood specimen (specimen) 09/17/2015 3:30 AM EDT 09/17/2015 3:36 AM EDT Narrative Resulting Agency Comment Spec In Lab Larry Larkin MD HEMATOLOGY ORDERABLE S Performing Organization Address City/[facility]/ZIP Co de Phone Number [facility] [place] [address] * (ABNORMAL) Phosphorus (09/17/2015 3:30 AM EDT) Pathologist [facility] Phosphorus 6.7(H) 2.5 - 4.5 mg/dL [facility] Blood specimen (specimen) 09/17/2015 3:30 AM EDT 09/17/2015 3:36 AM EDT Narrative Resulting Agency Comment Spec In Lab Larry Larkin MD CHEMISTRY ORDERABLES Performing Organization Address [facility] Co de Phone Number [facility] [place] [address] * Magnesium (09/17/2015 3:30 AM EDT) [facility] Magnesium 0.73 0.69 - 1.07 mmol/L [facility] Blood specimen (specimen) 09/17/2015 3:30 AM EDT 09/17/2015 3:36 AM EDT Narrative Resulting Agency Comment Spec In Lab Larry Larkin MD CHEMISTRY ORDERABLES Performing Organization Address [facility] Co de Phone Number [facility] [place] [address] * (ABNORMAL) Comprehensive metabolic panel (non-fasting) (09/17/2015 3:30 AM EDT) [facility] Glucose 160 65 - 199 mg/dL [facility] Comment:Diabetes: >=200 mg/d L plus symptoms Blood Urea Nitrogen 52(H) 10 - 20 mg/dL [facility] Creatinine 6.94(H) 0.80 - 1.50 mg/dL [facility] Comment: Please note that the pediatric reference intervals supplied above were not validated at [facility]. Results from pediatric patients should be interpreted in conjunction to the patient's age, height and muscle mass. Sodium 137 135 - 145 mmol/L [facility] Potassium 5.7(H) 3.5 - 5.0 mmol/L [facility] Comment: Please note: ??Patients with WBC >100,000 may have falsely elevated Potassium levels. ??For accurate Potassium quantification in these patients send serum separator tube (gold top) for subsequent determinations. ??Contact the Clinical Chemistry Laboratory if there are any questions. Chloride 101 98 - 107 mmol/L [facility] Carbon Dioxide 20(L) 22 - 31 mmol/L [facility] Anion Gap 16(H) 5 - 15 mmol/L [facility] Calcium 8.3(L) 8.5 - 10.5 mg/dL [facility] Protein, Total 6.4 6.1 - 8.0 gm/dL [facility] Albumin 3.3 3.2 - 5.2 gm/dL [facility] Aspartate Aminotransferase 20 0 - 39 unit/L [facility] Alanine Aminotransferase 16 0 - 55 unit/L [facility] Alkaline Phosphatase 55 40 - 120 unit/L [facility] Bilirubin, Total 0.6 0.2 - 1.3 mg/dL [facility] Bilirubin, Direct 0.2 0.0 - 0.3 mg/dL [facility] Est Glomerular Filtration Rate 8(L) >=60 [facility] Comment: This [...] the following links into your internet browser. [email or web address] Blood specimen (specimen) 09/17/2015 3:30 AM EDT 09/17/2015 3:36 AM EDT Narrative Resulting Agency Comment Spec In Lab Larry Larkin MD [place] [address] * (ABNORMAL) Differential, Automated (09/16/2015 9:50 PM EDT) Pathologist [facility] Neutrophil % 92.3 % [facility] Neutrophil Absolute 12.45(H) 1.50 - 6.30 x10(3)/mc L [facility] Lymph % 3.6 % [facility] Lymphocytes Abs 0.5(L) 1.0 - 3.6 x10(3)/mc L [facility] Monocyte % 3.6 % [facility] Monocyte Abs 0.5 0.2 - 1.0 x10(3)/ L [facility] Eos % 0.1 % [facility] Eosinophils Abs 0.0 0.0 - 0.5 x10(3)/[facility] LABORATORY Basophil % 0.1 % [facility] Baso Absolute 0.0 0.0 - 0.2 x10(3)/ L [facility] Immature Gran % 0.30 % [facility] Comment: Immature granulocytes(IG's)percentage and absolute count will include metamyelocytes, myelocytes, and promyelocytes. Blood smears from CBCs yielding IG's will be scanned manually for concordance. If this scan disagrees with the automated IG or if promyelocytes are noted, a manual differential will be performed. Immature Gran Absolute 0.04 0.00 - 0.05 x10(3)/ L [facility] Blood specimen (specimen) 09/16/2015 9:50 PM EDT 09/16/2015 10:05 PM EDT Narrative Resulting Agency Comment Spec In Lab Laryr Larkin MD HEMATOLOGY ORDERABLE S [facility] [place] [address] * (ABNORMAL) Hemogram (09/16/2015 9:50 PM EDT) White Blood Cell 13.5(H) 4.0 - 10.0 x10(3)/ L [facility] Red Blood Cell 3.70(L) 4.63 - 6.08 x10(6)/mc L [facility] Hemoglobin 11.7(L) 13.7 - 17.5 gm/dL [facility] Hematocrit 33.9(L) 40.0 - 51.0 % [facility] Mean Cell Volume 91.6 79.0 - 92.0 fL [facility] Mean Cell Hemoglobin 31.6 25.6 - 32.2 pg [facility] Mean Cell Hemoglobin Concentration 34.5 32.0 - 36.5 gm/dL [facility] Platelet 227 145 - 370 x10(3)/[facility] LABORATORY RDW Standard Deviation 47.7(H) 35.0 - 46.0 fL [facility] RDW coefficient of variation 14.3 10.9 - 14.4 % [facility] Mean Platelet Volume 9.5 9.0 - 12.0 fL [facility] Blood specimen (specimen) 09/16/2015 9:50 PM EDT 09/16/2015 10:05 PM EDT Narrative Resulting Agency Comment Spec In Lab Larry Larkin MD HEMATOLOGY ORDERABLE S Performing Organization Address City/[facility] Co de Phone Number [facility] [place] [address] * (ABNORMAL) Phosphorus (09/16/2015 9:50 PM EDT) Phosphorus 6.2(H) 2.5 - 4.5 mg/dL [facility] Blood specimen (specimen) 09/16/2015 9:50 PM EDT 09/16/2015 10:05 PM EDT Narrative Resulting Agency Comment Spec In Lab Larry Larkin MD CHEMISTRY ORDERABLES [facility] [place] [address] * Magnesium (09/16/2015 9:50 PM EDT) Magnesium 0.75 0.69 - 1.07 mmol/L [facility] Blood specimen (specimen) 09/16/2015 9:50 PM EDT 09/16/2015 10:05 PM EDT Narrative Resulting Agency Comment Spec In Lab Larry Larkin MD CHEMISTRY ORDERABLES [facility] [place] [address] * (ABNORMAL) Comprehensive metabolic panel (non-fasting) (09/16/2015 9:50 PM EDT) [facility] Glucose 158 65 - 199 mg/dL [facility] Comment:Diabetes: >=200 mg/d L plus symptoms Blood Urea Nitrogen 48(H) 10 - 20 mg/dL [facility] Creatinine 6.94(H) 0.80 - 1.50 mg/dL [facility] Comment: Please note that the pediatric reference intervals supplied above were not validated at [facility]. Results from pediatric patients should be interpreted in conjunction to the patient's age, height and muscle mass. Sodium 138 135 - 145 mmol/L [facility] Potassium 5.3(H) 3.5 - 5.0 mmol/L [facility] Comment: Please note: ??Patients with WBC >100,000 may have falsely elevated Potassium levels. ??For accurate Potassium quantification in these patients send serum separator tube (gold top) for subsequent determinations. ??Contact the Clinical Chemistry Laboratory if there are any questions. Chloride 100 98 - 107 mmol/L [facility] Carbon Dioxide 22 22 - 31 mmol/L [facility] Anion Gap 16(H) 5 - 15 mmol/L [facility] Calcium 8.5 8.5 - 10.5 mg/dL [facility] Protein, Total 6.6 6.1 - 8.0 gm/dL [facility] Albumin 3.4 3.2 - 5.2 gm/dL [facility] Aspartate Aminotransferase 19 0 - 39 unit/L [facility] Alanine Aminotransferase 17 0 - 55 unit/L [facility] Alkaline Phosphatase 59 40 - 120 unit/L [facility] Bilirubin, Total 0.7 0.2 - 1.3 mg/dL [facility] Bilirubin, Direct 0.2 0.0 - 0.3 mg/dL [facility] Est Glomerular Filtration Rate 8(L) >=60 [facility] Comment: This [...] the following links into your internet browser. [email or web address] Blood specimen (specimen) 09/16/2015 9:50 PM EDT 09/16/2015 10:05 PM EDT Narrative Resulting Agency Comment Spec In Lab Larry Larkin MD CHEMISTRY ORDERABLES Performing Organization Address City/State/[facility] Co de Phone Number [facility] [place] [address] * POCT Glucose (09/16/2015 5:36 PM EDT) Glucose, POC 135 65 - 199 mg/dL [facility] Comment: Supplemental ranges: <140 mg/dL before meals <180 mg/dL all other times of the day Blood specimen (specimen) 09/16/2015 5:36 PM EDT 09/16/2015 5:36 PM EDT Larry Larkin MD POINT OF CARE TEST O RDERABLES Performing Organization Address City/[facility]/ZIP Co de Phone Number [facility] [place] [address] * (ABNORMAL) Differential, Automated (09/16/2015 3:29 PM EDT) Neutrophil % 88.2 % [facility] Neutrophil Absolute 6.47(H) 1.50 - 6.30 x10(3)/mc L [facility] Lymph % 8.3 % [facility] Lymphocytes Abs 0.6(L) 1.0 - 3.6 x10(3)/ L [facility] Monocyte % 1.5 % [facility] Monocyte Abs 0.1(L) 0.2 - 1.0 x10(3)/ L [facility] Eos % 1.6 % [facility] Eosinophils Abs 0.1 0.0 - 0.5 x10(3)/[facility] Basophil % 0.3 % [facility] Baso Absolute 0.0 0.0 - 0.2 x10(3)/[facility]ORY Immature Gran % 0.10 % [facility] Comment: Immature granulocytes(IG's)percentage and absolute count will include metamyelocytes, myelocytes, and promyelocytes. Blood smears from CBCs yielding IG's will be scanned manually for concordance. If this scan disagrees with the automated IG or if promyelocytes are noted, a manual differential will be performed. Immature Gran Absolute 0.01 0.00 - 0.05 x10(3)/mc L [facility] Blood specimen (specimen) 09/16/2015 3:29 PM EDT 09/16/2015 3:29 PM EDT Narrative Resulting Agency Comment Spec In Lab Larry Larkin MD HEMATOLOGY ORDERABLE S Performing Organization Address City/[facility]/ZIP Co de Phone Number [facility] [place] [address] * (ABNORMAL) Hemogram (09/16/2015 3:29 PM EDT) White Blood Cell 7.3 4.0 - 10.0 x10(3)/ L [facility] Red Blood Cell 3.65(L) 4.63 - 6.08 x10(6)/mc L [facility] Hemoglobin 11.5(L) 13.7 - 17.5 gm/dL [facility] Hematocrit 33.3(L) 40.0 - 51.0 % [facility] Mean Cell Volume 91.2 79.0 - 92.0 fL [facility] Mean Cell Hemoglobin 31.5 25.6 - 32.2 pg [facility] Mean Cell Hemoglobin Concentration 34.5 32.0 - 36.5 gm/dL [facility] Platelet 211 145 - 370 x10(3)/[facility]AT[facility] RDW Standard Deviation 46.8(H) 35.0 - 46.0 fL [facility] RDW coefficient of variation 14.1 10.9 - 14.4 % [facility] Mean Platelet Volume 9.3 9.0 - 12.0 fL [facility] Blood specimen (specimen) 09/16/2015 3:29 PM EDT 09/16/2015 3:29 PM EDT Narrative Resulting Agency Comment Spec In Lab Larry Larkin MD HEMATOLOGY ORDERABLE S [facility] [place] [address] * APTT (09/16/2015 3:29 PM EDT) Partial Thromboplastin Time 29 25 - 35 sec [facility] Comment: The recommended therapeutic range for full dose, unfractionated heparin at [facility] is 80 ? 114 seconds. The use of the anti-Xa (heparin) level rather than the PTT is recommended for monitoring anticoagulation intensity in critically ill patients receiving unfractionated heparin by continuous IV infusion. Blood specimen (specimen) 09/16/2015 3:29 PM EDT 09/16/2015 3:29 PM EDT Narrative Resulting Agency Comment Spec In Lab Larry Larkin MD HEMATOLOGY ORDERABLE S Performing Organization Address [facility] Co de Phone Number [facility] [place] [address] * Prothrombin Time (09/16/2015 3:29 PM EDT) [facility] Prothrombin Time 14.3 12.0 - 15.0 sec [facility] [...] International Normalization Ratio 1.1 0.9 - 1.1 [facility] Blood specimen (specimen) 09/16/2015 3:29 PM EDT 09/16/2015 3:29 PM EDT Narrative Resulting Agency Comment Spec In Lab Larry Larkin MD HEMATOLOGY ORDERABLE S Performing Organization Address [facility] Co de Phone Number [facility] [place] [address] * (ABNORMAL) Comprehensive metabolic panel (non-fasting) (09/16/2015 3:29 PM EDT) Pathologist [facility] Glucose 148 65 - 199 mg/dL [facility] Comment:Diabetes: >=200 mg/d L plus symptoms Blood Urea Nitrogen 45(H) 10 - 20 mg/dL [facility] Creatinine 6.99(H) 0.80 - 1.50 mg/dL [facility] Comment: Please note that the pediatric reference intervals supplied above were not validated at [facility]. Results from pediatric patients should be interpreted in conjunction to the patient's age, height and muscle mass. Sodium 136 135 - 145 mmol/L [facility] Potassium 5.0 3.5 - 5.0 mmol/L [facility] Comment: Please note: ??Patients with WBC >100,000 may have falsely elevated Potassium levels. ??For accurate Potassium quantification in these patients send serum separator tube (gold top) for subsequent determinations. ??Contact the Clinical Chemistry Laboratory if there are any questions. Chloride 99 98 - 107 mmol/L [facility] Carbon Dioxide 25 22 - 31 mmol/L [facility] Anion Gap 12 5 - 15 mmol/L [facility] Calcium 8.3(L) 8.5 - 10.5 mg/dL [facility] Comment:result rechecked-DANITZA Protein, Total 6.7 6.1 - 8.0 gm/dL [facility] Albumin 3.3 3.2 - 5.2 gm/dL [facility] Aspartate Aminotransferase 19 0 - 39 unit/L [facility] Alanine Aminotransferase 18 0 - 55 unit/L [facility] Alkaline Phosphatase 59 40 - 120 unit/L [facility] Bilirubin, Total 0.9 0.2 - 1.3 mg/dL [facility] Bilirubin, Direct 0.2 0.0 - 0.3 mg/dL [facility] Est Glomerular Filtration Rate 8(L) >=60 [facility] Comment: This [...] the following links into your internet browser. [email or web address] Blood specimen (specimen) 09/16/2015 3:29 PM EDT 09/16/2015 3:29 PM EDT Narrative Resulting Agency Comment Spec In Lab Larry Larkin MD CHEMISTRY ORDERABLES Performing Organization Address City/[facility]/ZIP Co de Phone Number [facility] [place] [address] * Magnesium (09/16/2015 3:29 PM EDT) Pathologist [facility] Magnesium 0.75 0.69 - 1.07 mmol/L [facility] Blood specimen (specimen) 09/16/2015 3:29 PM EDT 09/16/2015 3:29 PM EDT Narrative Resulting Agency Comment Spec In Lab Larry Larkin MD CHEMISTRY ORDERABLES Performing Organization Address [facility] Co de Phone Number [facility] [place] [address] * POCT Glucose (09/16/2015 3:12 PM EDT) [facility] Glucose, POC 125 65 - 199 mg/dL [facility] Comment: Supplemental ranges: <140 mg/dL before meals <180 mg/dL all other times of the day Blood specimen (specimen) 09/16/2015 3:12 PM EDT 09/16/2015 3:12 PM EDT Larry Larkin MD POINT OF CARE TEST O RDERABLES Performing Organization Address [facility] Co de Phone Number [facility] [place] [address] * (ABNORMAL) BLOOD GAS 2 ARTERIAL (09/16/2015 2:02 PM EDT) pH, Arterial 7.37 7.35 - 7.45 [facility] PCO2, Arterial 43 35 - 45 mmHg [facility] PO2, Arterial 204(H) 85 - 104 mmHg [facility] Bicarbonate, Arterial 24.1 20.0 - 26.0 mmol/L [facility] Base Excess, Arterial -1.1 -3.0 - 3.0 mmol/L [facility] Hgb Blood Gas 11.4(L) 13.7 - 17.5 gm/dL [facility] Oxyhemoglobin, Arterial 98.8(H) 94.0 - 97.0 % [facility] Carboxyhemoglob in, Arterial 0.2 % [facility] Comment: Nonsmokers: 0.5-1.5% COHB Smokers: Variable, but usually less than 10% Toxic: 20-30% COHB Lethal: Greater than 60% COHB Methemoglobin, Arterial 0.3 <=1.5 % [facility] Na Whole Blood 135 135 - 145 mmol/L [facility] K Whole Blood 4.8 3.5 - 5.0 mmol/L [facility] Comment: Please note: Patients with WBC >100,000 may have falsely elevated Potassium levels. Contact the Clinical Chemistry Laboratory if there are any questions. ICa Whole Blood 1.08(L) 1.15 - 1.33 mmol/L [facility] Comment: Note: ??Total bilirubin higher than 20 mg/dL may lead to falsely low ionized calcium. CL Whole Blood 102 98 - 107 mmol/L [facility] Gluc Whole Bld 135 65 - 199 mg/dL [facility] Comment:Diabetes: >=200 mg/d L plus symptoms. Blood specimen (specimen) 09/16/2015 2:02 PM EDT 09/16/2015 2:02 PM EDT Larry Larkin MD POINT OF CARE TEST O RDERABLES Performing Organization Address City/State/[facility] Co de Phone Number [facility] [place] [address] * CMV Antibody, IgG (09/16/2015 10:28 AM EDT) CMV IgG Neg Neg [facility] Blood specimen (specimen) 09/16/2015 10:28 AM EDT 09/17/2015 7:28 AM EDT Narrative Resulting Agency Comment Spec In Lab Larry Larkin MD IMMUNOLOGY ORDERABLE S Performing Organization Address City/[facility]/ZIP Co de Phone Number [facility] [place] [address] * EKG 12 Lead (09/16/2015 10:10 AM EDT) Ventricular rate 60 BPM MUSE SYSTEM Atrial Rate 60 BPM MUSE SYSTEM P-R Interval 184 ms MUSE SYSTEM QRS Duration 110 ms MUSE SYSTEM Q-T Interval 476 ms MUSE SYSTEM QTC Calculated (Bezet) 476 ms MUSE SYSTEM Calculated P [place] -14 degrees MUSE SYSTEM Calculated R [place] -44 degrees MUSE SYSTEM Calculated T [place] -26 degrees MUSE SYSTEM INTERPRETATION Sinus rhythm [...] Larkin MD ECG ORDERABLES Performing Organization Address City/[facility]/ZIP Co de Phone Number M[facility] SYSTEM * Differential, Automated (09/16/2015 10:08 AM EDT) Pathologist [facility] Neutrophil % 65.2 % [facility] Neutrophil Absolute 4.72 1.50 - 6.30 x10(3)/[facility] Lymph % 20.3 % [facility] Lymphocytes Abs 1.5 1.0 - 3.6 x10(3)/[facility] Monocyte % 8.1 % [facility] Monocyte Abs 0.6 0.2 - 1.0 x10(3)/[facility] Eos % 5.4 % [facility] Eosinophils Abs 0.4 0.0 - 0.5 x10(3)/[facility] Basophil % 0.7 % [facility] Baso Absolute 0.0 0.0 - 0.2 x10(3)/[facility] Immature Gran % 0.30 % [facility] Comment: Immature granulocytes(IG's)percentage and absolute count will include metamyelocytes, myelocytes, and promyelocytes. Blood smears from CBCs yielding IG's will be scanned manually for concordance. If this scan disagrees with the automated IG or if promyelocytes are noted, a manual differential will be performed. Immature Gran Absolute 0.02 0.00 - 0.05 x10(3)/mcL [facility] Blood specimen (specimen) 09/16/2015 10:08 AM EDT 09/16/2015 10:23 AM EDT Narrative Resulting Agency Comment Spec In Lab Larry Larkin MD HEMATOLOGY ORDERABLE S [facility] [place] [address] * (ABNORMAL) Hemogram (09/16/2015 10:08 AM EDT) White Blood Cell 7.2 4.0 - 10.0 x10(3)/mc L [facility] Red Blood Cell 3.83(L) 4.63 - 6.08 x10(6)/mc L [facility] Hemoglobin 12.1(L) 13.7 - 17.5 gm/dL [facility] Hematocrit 35.8(L) 40.0 - 51.0 % [facility] Mean Cell Volume 93.5(H) 79.0 - 92.0 fL [facility] Mean Cell Hemoglobin 31.6 25.6 - 32.2 pg [facility] Mean Cell Hemoglobin Concentration 33.8 32.0 - 36.5 gm/dL [facility] Platelet 231 145 - 370 x10(3)/mc L [facility] RDW Standard Deviation 47.3(H) 35.0 - 46.0 fL [facility] RDW coefficient of variation 13.9 10.9 - 14.4 % [facility] Mean Platelet Volume 9.4 9.0 - 12.0 fL [facility] Blood specimen (specimen) 09/16/2015 10:08 AM EDT 09/16/2015 10:23 AM EDT Narrative Resulting Agency Comment Spec In Lab Larry Larkin MD HEMATOLOGY ORDERABLE S Performing Organization Address City/[facility]/ZIP Co de Phone Number [facility] [place] [address] * Antibody screen (09/16/2015 10:08 AM EDT) Ab Screen Interp Negative [facility] Expires at [id number] on: 09/19/2015 [facility] [facility] Blood specimen (specimen) 09/16/2015 10:08 AM EDT 09/16/2015 10:17 AM EDT Narrative Resulting Agency Comment Spec In Lab Larry Larkin MD BLOOD BANK LAB ORDER IGNACIO Performing Organization Address City/[facility]/ZIP Co de Phone Number [facility] [place] [address] * ABO/Rh Typing (09/16/2015 10:08 AM EDT) ABORH Type AB Pos [facility] Blood specimen (specimen) 09/16/2015 10:08 AM EDT 09/16/2015 10:17 AM EDT Narrative Resulting Agency Comment Spec In Lab Larry Larkin MD BLOOD BANK LAB ORDER IGNACIO Performing Organization Address City/[facility]/ZIP Co de Phone Number [facility] [place] [address] * APTT (09/16/2015 10:08 AM EDT) Partial Thromboplastin Time 28 25 - 35 sec [facility] Comment: The recommended therapeutic range for full dose, unfractionated heparin at [facility] is 80 ? 114 seconds. The use of the anti-Xa (heparin) level rather than the PTT is recommended for monitoring anticoagulation intensity in critically ill patients receiving unfractionated heparin by continuous IV infusion. Blood specimen (specimen) 09/16/2015 10:08 AM EDT 09/16/2015 10:23 AM EDT Narrative Resulting Agency Comment Spec In Lab Larry Larkin MD HEMATOLOGY ORDERABLE S Performing Organization Address [facility] Co de Phone Number [facility] [place] [address] * Prothrombin Time (09/16/2015 10:08 AM EDT) Prothrombin Time 14.0 12.0 - 15.0 sec [facility] International Normalization Ratio 1.1 0.9 - 1.1 [facility] Blood specimen (specimen) 09/16/2015 10:08 AM EDT 09/16/2015 10:23 AM EDT Narrative Resulting Agency Comment Spec In Lab Larry Larkin MD HEMATOLOGY ORDERABLE S Performing Organization Address [facility] Co de Phone Number [facility] [place] [address] * (ABNORMAL) Phosphorus (09/16/2015 10:08 AM EDT) Phosphorus 5.0(H) 2.5 - 4.5 mg/dL [facility] Blood specimen (specimen) 09/16/2015 10:08 AM EDT 09/16/2015 10:23 AM EDT Narrative Resulting Agency Comment Spec In Lab Larry Larkin MD CHEMISTRY ORDERABLES Performing Organization Address City/[facility]/ZIP Co de Phone Number [facility] [place] [address] * Magnesium (09/16/2015 10:08 AM EDT) Magnesium 0.83 0.69 - 1.07 mmol/L [facility] Blood specimen (specimen) 09/16/2015 10:08 AM EDT 09/16/2015 10:23 AM EDT Narrative Resulting Agency Comment Spec In Lab Larry Larkin MD CHEMISTRY ORDERABLES [facility] [place] [address] * (ABNORMAL) Comprehensive metabolic panel (non-fasting) (09/16/2015 10:08 AM EDT) Pathologist [facility] Glucose 127 65 - 199 mg/dL [facility] Comment:Diabetes: >=200 mg/d L plus symptoms Blood Urea Nitrogen 44(H) 10 - 20 mg/dL [facility] Creatinine 7.50(H) 0.80 - 1.50 mg/dL [facility] Comment: Please note that the pediatric reference intervals supplied above were not validated at [facility]. Results from pediatric patients should be interpreted in conjunction to the patient's age, height and muscle mass. Sodium 139 135 - 145 mmol/L [facility] Potassium 4.9 3.5 - 5.0 mmol/L [facility] Comment: Please note: ??Patients with WBC >100,000 may have falsely elevated Potassium levels. ??For accurate Potassium quantification in these patients send serum separator tube (gold top) for subsequent determinations. ??Contact the Clinical Chemistry Laboratory if there are any questions. Chloride 96(L) 98 - 107 mmol/L [facility] Carbon Dioxide 28 22 - 31 mmol/L [facility] Anion Gap 15 5 - 15 mmol/L [facility] Calcium 9.4 8.5 - 10.5 mg/dL [facility] Protein, Total 7.4 6.1 - 8.0 gm/dL [facility] Albumin 3.8 3.2 - 5.2 gm/dL [facility] Aspartate Aminotransferase 15 0 - 39 unit/L [facility] Alanine Aminotransferase 18 0 - 55 unit/L [facility] Alkaline Phosphatase 65 40 - 120 unit/L [facility] Bilirubin, Total 0.9 0.2 - 1.3 mg/dL [facility] Bilirubin, Direct 0.1 0.0 - 0.3 mg/dL [facility] Est Glomerular Filtration Rate 7(L) >=60 [facility] Comment: This [...] the following links into your internet browser. [email or web address] Blood specimen (specimen) 09/16/2015 10:08 AM EDT 09/16/2015 10:23 AM EDT Narrative Resulting Agency Comment Spec In Lab Larry Larkin MD CHEMISTRY ORDERABLES [facility] [place] [address] documented in this encounter Visit Diagnoses Not on filedocumented in this encounter Admitting Diagnoses Diagnosis Renal failure Renal failure, unspecified documented in this encounter Administered Medications Inactive Administered Medications - up to 3 most recent administrations Medication Order MAR Action Action Date Dose Rate Site heparin (porcine) injection ONCE PRN, Starting on 09/16/15 at 1325, Until 09/16/15 at 1716, Intra-Operative (Intra-Procedure), Routine Given 09/16/2015 1:25 PM EDT 2,500 Units 19- Surgical Site documented in this encounter Active and Recently Administered Medications Times are shown in EDT. Scheduled Medication Order 09/18/2015 09/19/2015 09/20/2015 atorvastatin (LIPITOR) tablet 10 mg (CANCELED) 10 mg, Oral, EVERY EVENING, First dose on Thu09/19/15 at 1700, Until Discontinued, Routine 164 (Given - Provider: Tamela Mckeon, JADEN) basiliximab (SIMULECT) 20 mg in sodium chloride 0.9% 55 mL (COMPLETED) 20 mg, Intravenous, ONCE, 1 dose, On Laura 09/20/15 at 0800, Given in the morning on POD# 4.(Check with transplant attending). 0842 (New Bag - Provider: Pauline Miles RN) bisacodyl (DULCOLAX) EC tablet 10 mg (CANCELED) 10 mg, Oral, 2 TIMES DAILY, First dose on 09/16/15 at 2100, Until Discontinued, DO NOT CRUSH OR OPEN, Routine 08 (Given - Provider: Sonu Lara RN)2120 (Given - Provider: Keyana Moy RN) 824 (Given - Provider: Tamela Mckeon RN)2056 (Given - Provider: Margarette Mota RN) 829 (Given - Provider: Pauline Miles RN) BUpivacaine-EPINEPHrine 0.25 %-1:200,000 injection 20 mL (COMPLETED) 20 mL (50 mg), Infiltration, ONCE, 1 dose, On Thu09/19/15 at 1345, For use in Interventional Radiology (IR) only for procedural sedation with direct provider supervision and verbal order., Angio/IR (Intra-Procedure), Routine 1430 (Given - Provider: Therese Carpio RN - Comment: Given by WARP PICKER.) carvedilol (COREG) tablet 12.5 mg (CANCELED) 12.5 mg, Oral, DAILY WITH DINNER, First dose on Thu09/18/15 at 1700, Until Discontinued, Routine 173 (Given - Provider: Pauline Miles RN) 164 (Given - Provider: Tamela Mckeon, JADEN) cefTRIAXone [...] Sonu Lara, JADEN)1554 (Given - Provider: Sonu Lara RN)2116 (Given - Provider: Keyana Moy RN) 0824 (Given - Provider: Tamela Mckeon, JADEN)1130 (Not Given - Provider: Sandra Dodd RN - Reason: Order parameters not met)1647 (Given - Provider: Tamela Mckeon RN)2100 (Given - Provider: Margarette Mota, JADEN) 0730 (Not Given - Provider: Pauline Miles RN - Reason: Order parameters not met)1205 (Given - Provider: Pauline Miles RN) levothyroxine (SYNTHROID) tablet 50 mcg (CANCELED) 50 mcg, Oral, EVERY MORNING, First dose on Thu09/17/15 at 0600, Until Discontinued, Routine 0600 (Given - Provider: Isela Clay RN) 0553 (Given - Provider: Keyana Moy RN) 0629 (Given - Provider: Margarette Mota, JADEN) lidocaine (XYLOCAINE) 10 mg/mL (1 %) injection 10 mg (COMPLETED) 10 mg, Subcutaneous, ONCE, 1 dose, On Thu09/19/15 at 1345, For use in Interventional Radiology (IR) only for procedure with direct provider supervision and verbal order., Angio/IR (Intra-Procedure), Routine 1345 (Due)1505 (Given - Provider: Therese Carpio RN - Comment: Given by WARP PICKER.) magnesium oxide (MAG-OX) tablet 400 mg (CANCELED) 400 mg, Oral, 2 TIMES DAILY, First dose on Thu09/18/15 at 0900, Until Discontinued, Routine 912 (Given - Provider: Sonu Lara RN)2117 (Given - Provider: Keyana Moy, JADEN) 825 (Given - Provider: Tamela Mckeon, JADEN)2056 [...] Sonu Lara RN)2117 (Given - Provider: Keyana Moy, JADEN) 825 (Given - Provider: Tamela Mckeon, JADEN)2055 (Given - Provider: Margarette Mota, JADEN) 0830 (Given - Provider: Pauline Miles RN) nystatin (MYCOSTATIN) 100,000 unit/mL oral suspension 500,000 Units (CANCELED) 500,000 Units (5 mL), Oral, 4 TIMES DAILY, First dose on Thu09/16/15 at 1745, Until Discontinued, Swish and swallow., Routine 0844 (Given - Provider: Sonu Lara RN)1518 (Given - Provider: Sonu Lara RN)1742 (Given - Provider: Pauline Miles RN)2122 (Given - Provider: Keyana Moy RN) 0827 (Given - Provider: Tamela Mckeon, JADEN)1300 (Not Given - Provider: Tamela Mckeon RN - Reason: Transfer to a Procedural area)1647 (Given - Provider: Tamela Mckeon RN)2057 (Given - Provider: Margarette Mota RN) 0831 (Given - Provider: Pauline Miles RN)1205 (Given - Provider: Pauline Miles RN) pantoprazole (PROTONIX) tablet 40 mg (CANCELED)(Linked Group 4) 40 mg, Oral, DAILY, First dose on Thu09/16/15 at 1800, Until Discontinued, DO NOT CRUSH OR OPEN If unable to take PO, may give IV 0844 (Given - Provider: Sonu Lara RN) 0825 (Given - Provider: Tamela Mckeon RN) 0831 (Given - Provider: Pauline Miles RN) polyethylene glycol (MIRALAX) packet 17 g 17 g, Oral, DAILY, First dose on Thu09/17/15 at 1315, Until Discontinued, Routine 0844 (Given - Provider: Sonu Lara RN) 0828 (Given - Provider: Tamela Mckeon RN) 0900 (Not Given - Provider: Pauline Miles [...] on Thu09/18/15 at 2100, Until Discontinued, Routine 2118 (Given - Provider: Keyana Moy RN) 0826 (Given - Provider: Tamela Mckeon RN)205 (Given - Provider: Margarette Mota, JADEN) 0831 (Given - Provider: Pauline Miles, JDAEN) tamsulosin (FLOMAX) ER capsule 0.4 mg (CANCELED) [...] Unit) 0533 (New Bag - Provider: Isela Clay, JADEN)0800 (Rate/Dose Verify - Provider: Sonu Lara, RN) [...] Oral, EVERY 4 HOURS PRN, Starting on Thu09/16/15 at 1516, Until Laura 09/20/15 at 1744, [...] Carpio RN)1436 (Given - Provider: Therese Carpio, JADEN)1446 (Given - Provider: Therese Carpio, JADEN) ipratropium-albuterol (DUONEB) 0.5 mg-3 mg(2.5 mg base)/3 mL nebulizer solution 3 mL (CANCELED) 3 mL, Nebulization, EVERY 4 HOURS PRN, Starting on 09/17/15 at 1554, Until Laura 09/20/15 at 1744, Wheezing, Routine 0705 (Given - Provider: Keyana Moy RN) meTOPROLOL (LOPRESSOR) injection 5 mg (CANCELED) 5 mg, Intravenous, EVERY 20 MIN PRN, 3 doses, Starting on Thu09/16/15 at 1715, Until Thu09/20/15 at 1744, High Blood Pressure, for Blood Pressure greater than 165/95, Hold for heart rate equal to or less than 60 beats per minute. If BP still greater than 165/95 after 3 doses, then administer DILTiazem. 1217 (Given - Provider: Sonu Lara RN) midazolam (PF) (VERSED) 1 mg/mL multi-dose injection [...] Therese Carpio RN)1446 (Given - Provider: Therese Carpio, JADEN) oxyCODONE (ROXICODONE) immediate release tablet 10 mg [...] Mckeon RN)2001 (See Alternative - Provider: Margarette Mota RN)2346 (See Alternative - Provider: Margarette Mota RN) 0358 (See Alternative - Provider: Margarette Mota RN)0839 (See Alternative - Provider: Pauline Miles, JADEN)1241 (Given - Provider: Pauline Miles RN) oxyCODONE (ROXICODONE) immediate release tablet 5 mg [...] way to IR)2001 (Given - Provider: Margarette Mota, JADEN)2346 (Given - Provider: Margarette Mota, JADEN) 0358 (Given - Provider: Margarette Mota RN)0839 (Given - Provider: Pauline Miles, RN)1241 (See [...] Routine documented in this encounter Care Teams Licensed Nursing Assistant Relationship Specialty Start Date End Date Albania Nunez DO [address] [place] [address] PCP - General 09/03/12 03/17/22 Ruchi Valles RN Nurse Clinic Transplant Surgery 07/30/15 documented as of this encounter
--- OUTSIDE RECORDS SUMMARY | 2024-02-14 11:37 | XMS_ITS | Encounter Summary ---
Author Organization [facility] [place] [address] Care Team Providers Care Bead Flipper Name Role Phone Urbano Denis DO Primary Care Provider Encounter Details Date Type Department Care Team (Late st Contact Info) Description 07/12/2015 Abstract [place] [address] Aurora Kessler Social History Tobacco Use Types [...] AM EDT Hospital Encounter [place] [address] Arrived documented as of this encounter Visit Diagnoses Not on filedocumented in this encounter Care Teams Bead Flipper Relationship Specialty Start Date End Date Urbano Denis DO [address] [place] [address] PCP - General 09/03/12 03/17/22 documented as of this encounter
--- OUTSIDE RECORDS SUMMARY | 2024-02-14 11:37 | XMS_ITS | Encounter Summary ---
Author Organization [facility] [place] [address] Care Team Providers Care Bottling Equipment Sales Representative Name Role Phone AdeelUrbano boland Primary Care Provider Encounter Details Date Type Department Care Team (Late st Contact Info) Description 07/17/2015 External Results [place] [address] Aurora Kessler Social History Tobacco Use Types [...] AM EDT Hospital Encounter Non[place] [address] Arrived documented as of this encounter Procedures Procedure Name Priority Date/Time Associated Diagnosis Comments TXP FOLLOW UP RENAL RECIPIENT WORK-UP Routine 12/28/2014 TXP FOLLOW UP RENAL RECIPIENT WORK-UP Routine 12/21/2014 documented in this encounter Results * (ABNORMAL) Transplant: Renal Recipient Work-up (12/28/2014) Glucose 85 Blood Urea Nitrogen 108 Creatinine 4.32 Sodium 143 137 - 147 Potassium 4.7 3.4 - 5.3 Chloride 108 99 - 108 Carbon Dioxide 26 22 - 29 Anion Gap 9 Calcium 9.4 8.7 - 10.7 Albumin 3.7 3.5 - 5.0 Bilirubin, Total 0.6 Alkaline Phosphatase 55 Aspartate Aminotransferase 16 14 - 40 Alanine Aminotransferase 17 10 - 40 White Blood Cell 8.0 Red Blood Cell 4.18(A) 4.50 - 5.90 Hemoglobin 12.7(A) 13.5 - 17.5 Hematocrit 37.0(A) 41.0 - 53.0 Mean Cell Hemoglobin 30.0 Mean Cell Hemoglobin Concentration 34.0 Mean Cell Volume 89.0 82.0 - 108.0 Platelet 261 Cholesterol, Total 185 mg/dL Triglyceride 315 mg/dL HDL Cholesterol 26 md/dL LDL Cholesterol 96 mg/dL POC Non-HDL 159 mg/dL Protein S Ag Total 6.8 Segmented Neutrophils Manual 73.5 Lymphocyte Manual 73.5 Monocyte Manual 7.3 Eosinophil Manual 3.5 Basophil Manual 0.9 ANC 5.90 Est Glomerular Filtration Rate 14 12/28/2014 Historical Provider CHEMISTRY ORDERAB LES * Transplant: Renal Recipient Work-up (12/21/2014) Pathologist [facility] ABORH Type AB POS Prostate Specific Antigen (Ultrasensitiv e) 0.75 CMV IgG 0.3 Hepatitis B Surface Antigen Negative Hepatitis B Surface Antibody NEGATIVE Hepatitis B Core Antibody NEGATIVE HIV 1/2 Ab NEGATIVE RPR (ARU) NEGATIVE HCV Viral Load [id number] IU/ML HCV Viral Load 5.7 12/21/2014 Historical Provider CHEMISTRY ORDERAB LES documented in this encounter Visit Diagnoses Not on filedocumented in this encounter Care Teams Bottling Equipment Sales Representative Relationship Specialty Start Date End Date Urbano Denis DO [address] [place] [address] [address] [place] [address] PCP - General 09/03/12 03/17/22 documented as of this encounter
--- OUTSIDE RECORDS SUMMARY | 2024-02-14 11:37 | XMS_ITS | Encounter Summary ---
Author Organization [facility] [place] [address] Care Team Providers Care Ice Cutter Name Role Phone Urbano Denis DO Primary Care Provider Reason for Referral * Diagnostic Test (Routine) - Closed Specialty Diagnoses / Procedures Referred By Humberto flor Referred To Contact Radiology Diagnoses ESRD (end stage renal disease) Procedures IR a/v fistula evaluations Jomar Franco MD [facility] [place] [address] [place] [address] [place] [address] Referral ID Status Reason Start Date Expiration Date V isits Requested Visits Authorized [id number] Closed Specialty Service Requested 07/30/2015 07/29/2016 1 1 Encounter Details Date Type Department Care Team (Late st Contact Info) Description 07/30/2015 Orders Only [place] [address] Jomar Franco MD [facility] [place] [place] [address] ESRD (end stage renal disease) Social History [...] Hospital Encounter Non-[place] [address] Arrived documented as of this encounter Results * IR a/v fistula [...] by US. Fellow: Gibson Avelar MD (pager #[phone]) Attending: Jade Nelson MD ?? (I was present and scrubbed for the entire procedure) Jomar Franco MD IMG IR ORDERABLES documented in this encounter Visit Diagnoses Diagnosis ESRD (end stage renal disease) End stage renal disease ESRD (end stage renal disease) End stage renal disease documented in this encounter Care Teams Ice Cutter Relationship Specialty Start Date End Date Urbano Denis DO [address] [place] [address] PCP - General 09/03/12 03/17/22 Ruchi Valles RN Nurse Clinic Transplant Surgery 07/30/15 documented as of this encounter
--- OUTSIDE RECORDS SUMMARY | 2024-02-14 11:37 | XMS_ITS | Encounter Summary ---
Author Organization [facility] [place] [address] Care Team Providers Care Database Technician Name Role Phone Urbano Denis DO Primary Care Provider Encounter Details Date Type Department Care Team (Late st Contact Info) Description 07/16/2015 Abstract [place] [address] Aurora Kessler Social History Tobacco Use Types [...] EDT Hospital Encounter Non-Invasive [place] [address] Arrived documented as of this encounter Visit Diagnoses Not on filedocumented in this encounter Care Teams Database Technician Relationship Specialty Start Date End Date Urbano Denis DO [address] [place] [address] PCP - General 09/03/12 03/17/22 documented as of this encounter
--- OUTSIDE RECORDS SUMMARY | 2024-02-14 11:38 | XMS_ITS | Encounter Summary ---
[place] [address] Care Team Providers Care Abstract Checker Name Role Phone Urbano Denis DO Primary Care Provider [phone] Reason for Referral * Diagnostic Test (Routine) - Closed Specialty Diagnoses / Procedures Referred By Contac t Referred To Contact Diagnoses ESRD (end stage renal disease) Procedures Echo pharm stress test (DSE) Shin Sebastian MD [facility] [place] [address] [facility] [address] Referral ID Status Reason Start Date Expiration Date V isits Requested Visits Authorized [id number] Closed Specialty Service Requested 05/29/2015 05/28/2016 1 1 Reason for Visit * Diagnostic Test (Routine) - Closed Specialty Diagnoses / Procedures Referred By Contac t Referred To Contact Diagnoses ESRD (end stage renal disease) Procedures Echo pharm stress test (DSE) Shin Sebastian MD [facility] [place] [address] [facility] [address] Referral ID Status Reason Start Date Expiration Date V isits Requested Visits Authorized [id number] Closed Specialty Service Requested 05/29/2015 05/28/2016 1 1 Encounter Details Date Type Department Care Team (Latest Contact Info) Description 06/14/2015 9:47 AM EST - 06/14/2015 11:59 PM EST Hospital Encounter Non-Invasive Cardiology Lab [facility] [place] [address] Shin Sebastian MD [facility] [place] [address] ESRD (end stage renal disease) Discharge Disposition: [...] Sign Reading Time Taken Comments Blood Pressure 157/82 06/14/2015 10:19 AM EST Pulse 62 06/14/2015 10:19 AM EST Temperature - - Respiratory Rate 20 06/14/2015 10:19 AM EST Oxygen Saturation 98% 06/14/2015 10:19 AM EST Inhaled Oxygen Concentration - - Weight 98.9 kg (218 lb) 06/14/2015 10:19 AM EST Height 177.8 cm (5' 10) 06/14/2015 10:19 AM EST Body Mass Index 31.28 06/14/2015 10:19 AM EST documented in this encounter Medications at Time [...] AM EDT Hospital Encounter Non-Invasive [place] [address] Arrived documented as of this encounter Procedures Procedure Name Priority Date/Time Associated Diagnosis Comments STRESS ECHO W CONTRAST Routine 06/14/2015 11:32 AM EST ESRD (end stage renal disease) documented in this encounter Results * STRESS ECHO W CONTRAST (06/14/2015 11:32 AM EST) EF 60 HEARTLAB SYSTEM Anatomical Region Laterality Modality Other 06/14/2015 Narrative 06/14/2015 12:01 PM EST Procedure: ?Stress Echocardiogram Patient: ?MABLE DAVENPORT P ? (Age): 1950(64y) Med Rec#: ? [id number] ?Sex: ?M ? Site Loc: ? DH ?Ht / Wt: ??177(cm)/102(kg) Pt. Loc: ?Echo Lab ?BSA: ?2.19 Study Date: ?? 06/14/2015 ?Pt. Type: Tape: ? Referring: Shin Sebastian ([id number]) Referring: UNKNOWN Reading: Joseph Zuniga ([id number]) Trimming Department Blocker: Chiquis Kelly Nurse: Meka Kim Diagnosis: *ICD-10-PCS End stage renal disease (N18.6) CPT Codes: *Stress Echo (13986) *Color Doppler (96310) *Doppler LTD (58126) *ECG Interpretation (24834) *Definity (98257KT) Stage ? BP ?HR ? Rest ?157/82 ?60 ? Low dose ?189/67 ?62 ? Peak ?219/103 ? 136 ? Recovery ?159/85 ?83 ? SUMMARY: 1. Technically difficult study. ??Definity contrast (one 1.5 ml vial)was used to enhance endocardial definition. 2. BASELINE: Normal global and segmental biventricular systolic function with an estimated ejection fraction of 60%. 3. STRESS: The peak dose of Dobutamine infused was 40 ug/kg/min. The patient was administered 1.0 mg of Atropine. The patient achieved a maximum heart rate of 136 which is 88% of the maximum predicted heart rate (154 beats/min). The target heart rate was achieved. ??The patient was administered 3 mg of Metoprolol [...] hyperdynamic. 5. IMPRESSION: Normal dobutamine stress echocardiogram. ??There is no echocardiographic evidence of ischemia at this level of stress. 6. Other echo and stress findings as noted in report. Findings Rest: Left Ventricle: ? Left ventricular chamber size, wall thickness, global and segmental systolic function are within normal limits. Ejection fraction is estimated to be 60%. Right Ventricle: ? Right ventricular chamber size, wall thickness, and systolic function are within normal limits. Aortic Valve: ? The aortic valve is tricuspid. ?The aortic valve leaflets are mildly thickened. ?Focal aortic leaflet calcification is visualized. ?Systolic excursion of the aortic valve is normal. ?There is no evidence of aortic valve stenosis. ?There is a trace of aortic regurgitation present. Mitral Valve: ? The mitral valve appears normal in structure and function. ?There is mild (1+/4+) mitral regurgitation present. Tricuspid Valve: ? The tricuspid valve appears normal in structure and function. ?There is mild (1+/4+) tricuspid regurgitation present. Pericardium: ? The pericardium appears normal and there is no evidence of a pericardial effusion. Stress: ? EKG: normal sinus rhythm. ?The patient's oxygen saturation was 98% ?The patient is taking a beta buddy. took coreg am dose today ?The patient is taking an anti-platelet medication. Misc: ? Other echo and stress findings as noted in report. ?Technically difficult study. ?Definity contrast (one 1.5 ml vial)was used to enhance endocardial definition. Excess contrast was discarded. ?Stress echo, limited spectral Doppler, color Doppler and ECG interpretation performed. Findings Low dose: Stress: ? EKG: normal sinus rhythm. ?EKG: Premature ventricular contractions noted. ?EKG: ??ventricular couplets. ?The patient's oxygen saturation was 98% Findings Peak: Predicted Values:The patient achieved a maximum heart rate of 136 which is 88% of the maximum predicted heart rate (154 beats/min). ??The target heart rate was achieved. Left Ventricle: ? Global left ventricular systolic function appears hyperdynamic. Stress: ? The peak dose of Dobutamine infused was 40 ug/kg/min. ?The patient was administered 1.0 mg of Atropine. ?The patient was administered 3 mg of Metoprolol during recovery. ?The patient performed leg lifts to accelerate heart rate. ?The patient performed hand squeezes to accelerate heart rate. ?The patient did not express feelings of chest discomfort. ?The blood pressure response was hypertensive. ?There were no arrhythmias. ?There were no significant ST segment changes. ?This was a negative electrocardiographic stress test for ischemia. ?This was a negative echocardiographic stress test. ?There is no echocardiographic evidence of myocardial ischemia at this level of stress. ?The patient's oxygen saturation was 98% Misc: ? Definity contrast was given to enhance Doppler signal. ?The patient is alert and oriented x3. ?The procedure was explained to the patient and the patient understands the procedure, ?A 20 gauge heplock was placed. ?An IV was placed in the patient's right arm. ?The heplock was discontinued. ?The IV site is dry and intact with no hematoma. ?Normal saline was given. 250cc's NS infused Findings Recovery: Stress: ? EKG: normal sinus rhythm. Chambers 2D ?Value ?Units (Range) ? Ascending Ao ?3.7 ?cm (2 - 3.5) ? Diastolic/Systolic Function ?Value ?Units (Range) ? MV E-wave Vmax ?0.5 ?m/sec ? MV deceleration [id number] ?msec ? MV A-wave Vmax ?0.6 ?m/sec ? MV E:A ratio ?0.9 ?ratio ? LV septal e' Vmax ?? 0 ?m/sec ? LV E:e' septal ratio12.5 ? ratio ? Tricuspid Valve ?Value ?Units (Range) ? TR Vmax ? 2.3 ?m/sec ? TR peak gradient ?20 ? mmHg ? Wall Motion: Segment Name ?Rest ?Peak ? Base-Anteroseptal ?? Normal ?Normal ? Base-Anterior ? Normal ?Normal ? Base-Anterolateral ??Normal ?Normal ? Base-Posterolateral Normal ?Normal ? Base-Inferior ? Normal ?Normal ? Base-Inferoseptal ?? Normal ?Normal ? Mid-Anteroseptal ?Normal ?Normal ? Mid-Anterior ?Normal ?Normal ? Mid-Anterolateral ?? Normal ?Normal ? Mid-Posterolateral ??Normal ?Normal ? Mid-Inferior ?Normal ?Normal ? Mid-Inferoseptal ?Normal ?Normal ? Shelby-Septal ? Normal ?Normal ? Shelby-Anterior ? Normal ?Normal ? Shelby-Lateral ?Normal ?Normal ? Shelby-Inferior ? Normal ?Normal ? Shelby-Tip ?Normal ?Normal ? This report has been electronically signed by: Joseph Zuniga M.D. ? 06/14/2015 12:01:18 Images reviewed and interpretation verified [facility] Procedure Note Joseph Zuniga MD - 06/14/2015 Procedure: Stress Echocardiogram Patient: MABLE DORANTES(Age): 1950(64y) Med Rec#: [id number] Sex: M Site Loc: [facility] Ht / Wt: 177(cm)/102(kg) Pt. Loc: Echo Lab BSA: 2.19 Study Date: 06/14/2015 Pt. Type: Tape: Referring: Shin Sebastian ([id number]) Referring: UNKNOWN Reading: Joseph Zuniga ([id number]) Trimming Department Blocker: Chiquis Kelly Nurse: Meka Kim Diagnosis: *ICD-10-PCS End stage renal disease (N18.6) CPT Codes: *Stress Echo (82557) *Color Doppler (95175) *Doppler LTD (29216) *ECG Interpretation (18472) *Definity (11767QX) Stage BP HR Rest 157/82 60 Low dose 189/67 62 Peak 219/103 136 Recovery 159/85 83 SUMMARY: 1. Technically difficult study. Definity contrast (one 1.5 ml vial)was used to enhance endocardial definition. 2. BASELINE: Normal global and segmental biventricular systolic function with an estimated ejection fraction of 60%. 3. STRESS: The peak dose of Dobutamine [...] a negative electrocardiographic stress test for ischemia. 4. ECHOCARDIOGRAPHIC FINDINGS: Global left ventricular systolic function appears hyperdynamic. 5. IMPRESSION: Normal dobutamine stress echocardiogram. There is no echocardiographic evidence of ischemia at this level of stress. 6. Other echo and stress findings as noted in report. Findings Rest: Left Ventricle: Left ventricular chamber size, wall thickness, global and segmental systolic function are within normal limits. Ejection fraction is estimated to be 60%. Right Ventricle: Right ventricular chamber size, wall thickness, and systolic function are within normal limits. Aortic Valve: The aortic valve is tricuspid. The aortic valve leaflets are mildly thickened. Focal aortic leaflet calcification is visualized. Systolic excursion of the aortic valve is normal. There is no evidence of aortic valve stenosis. There is a trace of aortic regurgitation present. Mitral Valve: The mitral valve appears normal in structure and function. There is mild (1+/4+) mitral regurgitation present. Tricuspid Valve: The tricuspid valve appears normal in structure and function. There is mild (1+/4+) tricuspid regurgitation present. Pericardium: The pericardium appears normal and there is no evidence of a pericardial effusion. Stress: EKG: normal sinus rhythm. The patient's oxygen saturation was 98% The patient is taking a beta buddy. took coreg am dose today The patient is taking an anti-platelet medication. Misc: Other echo and stress findings as noted in report. Technically difficult study. Definity contrast (one 1.5 ml vial)was used to enhance endocardial definition. Excess contrast was discarded. Stress echo, limited spectral Doppler, color Doppler and ECG interpretation performed. Findings Low dose: Stress: EKG: normal sinus rhythm. EKG: Premature ventricular contractions noted. EKG: ventricular couplets. The patient's oxygen saturation was 98% Findings Peak: Predicted Values:The patient achieved a maximum heart rate of 136 which is 88% of the maximum predicted heart rate (154 beats/min). The target heart rate was achieved. Left Ventricle: Global left ventricular systolic function appears hyperdynamic. Stress: The peak dose of Dobutamine infused was 40 ug/kg/min. The patient was administered 1.0 mg of Atropine. The patient was administered 3 mg of Metoprolol during recovery. The patient performed leg lifts to accelerate heart rate. The patient performed hand squeezes to accelerate heart rate. The patient did not express feelings of chest discomfort. The blood pressure response was hypertensive. There were no arrhythmias. There were no significant ST segment changes. This was a negative electrocardiographic stress test for ischemia. This was a negative echocardiographic stress test. There is no echocardiographic evidence of myocardial ischemia at this level of stress. The patient's oxygen saturation was 98% Misc: Definity contrast was given to enhance Doppler signal. The patient is alert and oriented x3. The procedure was explained to the patient and the patient understands the procedure, A 20 gauge heplock was placed. An IV was placed in the patient's right arm. The heplock was discontinued. The IV site is dry and intact with no hematoma. Normal saline was given. 250cc's NS infused Findings Recovery: Stress: EKG: normal sinus rhythm. Chambers 2D Value Units (Range) Ascending Ao 3.7 cm (2 - 3.5) Diastolic/Systolic Function Value Units (Range) MV E-wave Vmax 0.5 m/sec MV deceleration [id number] msec MV A-wave Vmax 0.6 m/sec MV E:A ratio 0.9 ratio LV septal e' Vmax 0 m/sec LV E:e' septal ratio12.5 ratio Tricuspid Valve Value Units (Range) TR Vmax 2.3 m/sec TR peak gradient 20 mmHg Wall Motion: Segment Name Rest Peak Base-Anteroseptal Normal Normal Base-Anterior Normal Normal Base-Anterolateral Normal Normal Base-Posterolateral Normal Normal Base-Inferior Normal Normal Base-Inferoseptal Normal Normal Mid-Anteroseptal Normal Normal Mid-Anterior Normal Normal Mid-Anterolateral Normal Normal Mid-Posterolateral Normal Normal Mid-Inferior Normal Normal Mid-Inferoseptal Normal Normal Shelby-Septal Normal Normal Shelby-Anterior Normal Normal Shelby-Lateral Normal Normal Shelby-Inferior Normal Normal Shelby-Tip Normal Normal This report has been electronically signed by: Joseph Zuniga M.D. 06/14/2015 12:01:18 Images reviewed and interpretation verified [facility] Shin Sebastian MD ECHO ORDERABLES documented in this encounter Visit Diagnoses Diagnosis ESRD (end stage renal disease) End stage renal disease documented in this encounter Administered Medications Inactive Administered Medications - up to 3 most recent administrations Medication Order MAR Action Action Date Dose Rate Site atropine injection 1 mg 1 mg, Intravenous, ONCE, 1 dose, On Laura 06/14/15 at 1145, Echo Lab (Intra-Procedure), Routine Given 06/14/2015 10:55 AM EST 1 mg DOBUTamine 500 mg in sodium chloride 0.9% 250 mL (ECHO LAB) 40 mcg/kg/min ? 98.9 kg (118.68 mL/hr, rounded to 118.7 mL/hr), Intravenous, ONCE, 1 dose, On Laura 06/14/15 at 1145, Echo Lab (Intra-Procedure) Given 06/14/2015 10:46 AM EST 3.956 mg/min 118.7 mL/hr meTOPROLOL (LOPRESSOR) injection 3 mg 3 mg, Intravenous, ONCE, 1 dose, On Laura 06/14/15 at 1145, Echo Lab (Intra-Procedure), Routine Given 06/14/2015 11:01 AM EST 3 mg perflutren lipid microspheres (DEFINITY) injection 1.2 mL 1.2 mL, Intravenous, ONCE PRN, 1 dose, Starting on Laura 06/14/15 at 1132, Until Laura 06/14/15 at 1100, Other, Routine Given 06/14/2015 11:00 AM EST 1.2 mLs documented in this encounter Care Teams Abstract Checker Relationship Specialty Start Date End Date Urbano Denis DO [address] [facility] [address] [place] [address] PCP - General 09/03/12 03/17/22 documented as of this encounter
--- OUTSIDE RECORDS SUMMARY | 2024-02-14 11:38 | XMS_ITS | Encounter Summary ---
[place] [address] Care Team Providers Care Agricultural Commodities Grader Name Role Phone AdeelUrbano toscano Primary Care Provider [phone] Reason for Visit * Reason Onset Date Comments Patient Not Seen 04/19/2015 Encounter Details Date Type Department Care Team (Late st Contact Info) Description 04/19/2015 9:40 AM EDT Office Visit [place] [address] Que Amaro MD [facility] [place] [address] PATIENT NOT SEEN Social History Tobacco Use Types Packs/Day Years Used Date Smoking Tobacco: Former Sex and Gender Information Value Date Recorded Sex Assigned at Not on file Gender Identity Not on file Sexual Orientation Not on file documented as of this encounter Progress Notes * Que Amaro MD - 04/19/2015 3:38 PM EDT This patient was not seen in this encounter. This patient was not seen in this encounter. documented in this encounter Plan of Treatment Upcoming Encounters Date Type Department Care Team (Late st Contact Info) Description 04/15/2024 10:00 AM EDT Hospital Encounter Non-Invasive [place]iology [place] [address] Arrived documented as of this encounter Visit Diagnoses Diagnosis PATIENT NOT SEEN documented in this encounter Care Teams Agricultural Commodities Grader Relationship Specialty Start Date End Date Urbano Denis DO [address] [facility] [address] [place] [address] PCP - General 09/03/12 03/17/22 documented as of this encounter
--- OUTSIDE RECORDS SUMMARY | 2024-02-14 11:38 | XMS_ITS | Encounter Summary ---
Author Organization [facility] [place] [address] Care Team Providers Care Clean Room Technician Name Role Phone Urbano Denis DO Primary Care Provider [phone] Encounter Details Date Type Department Care Team (Late st Contact Info) Description 03/16/2015 9:00 AM EDT Office Visit Solid [place] [address] Jennifer Amaro MD [facility] [place] [address] ESRD (end stage renal disease) Discharge Disposition: Home Social History Tobacco Use Types Packs/Day Years Used Date Smoking Tobacco: Former Sex and Gender Information Value Date Recorded Sex Assigned at Not on file Gender Identity Not on file Sexual Orientation Not on file documented as of this encounter Last Filed Vital Signs Vital Sign Reading Time Taken Comments Blood Pressure 129/76 03/16/2015 8:57 AM EDT Pulse 80 03/16/2015 8:57 AM EDT Temperature - - Respiratory Rate 20 03/16/2015 8:57 AM EDT Oxygen Saturation 98% 03/16/2015 8:57 AM EDT Inhaled Oxygen Concentration - - Weight 100.9 kg (222 lb 6.4 oz) 03/16/2015 8:57 AM EDT Height 180.3 cm (5' 11) 03/16/2015 8:57 AM EDT Body Mass Index 31.02 03/16/2015 8:57 AM EDT documented in this encounter Progress Notes * Jennifer Amaro MD - 03/16/2015 3:57 PM EDT Initial Evaluation: Transplantation Date: 03/16/2015 Patient: Cody Bolden History of Present Illness: Mr. Cody Bolden is an 64yo male with a history of ESRD who was referred to my clinic for a dialysis access evaluation. He has a history of ESRD in the setting of diabetes mellitus and hypertension. The initial diagnosis of nephropathy was made approximately 3 years ago and he progressed to dialysis requirements 2 months ago. He is currently dialyzing through a right sided tunneled dialysis catheter. He has a history of chronic active hepatitis C without a known history of cirrhosis. He is closely followed by a cyber defense incident responder at [facility] where he is being evaluated for kidney transplantation. It has not been felt that he requires a liver transplant procedure at this time and there are plans to treat his hepatitis C following transplantation. He denies a history of UGIB, ascites, and jaundice. He is not certain how he contracted hepatitis C. He denies a history of blood transfusions and injection drug use. He is right handed and has no known history of upper extremity peripheral vascular disease. 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 He does nothave right hand weakness. There is no known history of clotting disorders or bleeding disorders. Heis on Plavix therapy (following the CVA) and does not take Coumadin. Problem List: Patient Active Problem List Diagnosis Code ??? DM type 2 (diabetes mellitus, type 2) 250.00 ??? Hypertension 401.9 ??? DJD (degenerative joint disease) 715.90 ??? Hematuria 599.70 Past Medical History: ?? ESRD ?? Diabetes mellitus ?? HTN ?? Obstructive sleep apnea ?? Chronic active hepatitis C without cirrhosis, without known portal hypertension Past Surgical History: ?? None FAMILY HISTORY: ?? No history of familial renal disease SOCIAL HISTORY: History Substance Use Topics ??? Smoking status: Former Smoker ??? Smokeless tobacco: Not on file ??? Alcohol Use: Not on file Visit Vitals: BP 129/76 mmHg Pulse 80 Resp 20 Ht 180.3 cm (5' 11) Wt 100.88 kg (222 lb 6.4oz) BMI 31.03 kg/m2 SpO2 98% Diagnoses: No diagnosis found. Allergies: Review of patient's allergies indicates no known allergies. Current Meds: Scheduled Meds: Current Outpatient Prescriptions Medication Sig Dispense Refill ??? hydrALAZINE (APRESOLINE) 25 mg Tablet Take 75 mg by mouth 2 times daily. ??? magnesium oxide (MAG-OX) 400 mg Tablet Take 400 mg by mouth daily. ??? carvedilol (COREG) 6.25 mg Tablet Take 12.5 mg by mouth 2 times daily (with meals). ??? amLODIPine (NORVASC) 5 mg Tablet Take 1 tablet by mouth daily. 90 tablet 3 ??? calcitRIOL (ROCALTROL) 0.25 mcg Capsule Take 1 capsule by mouth three times a week. 60 tablet 3 ??? doxazosin (CARDURA) 4 mg Tablet Take 1 tablet by mouth nightly. (Patient taking differently: Take 8 mg by mouth nightly.) 90 tablet 3 ??? clopidogrel (PLAVIX) 75 mg Tablet Take 75 mg by mouth daily. ??? furosemide (LASIX) 80 mg Tablet Take 40 mg by mouth 2 times daily. ??? spironolactone (ALDACTONE) 25 mg Tablet Take 25 mg by mouth daily. ??? pravastatin (PRAVACHOL) 20 mg Tablet Take 20 mg by mouth daily. ??? ONE TOUCH ULTRA TEST Strip 0 ??? ONE TOUCH ULTRAMINI Kit 0 ??? ONE TOUCH DELICA LANCETS 30 gauge Misc 0 ??? omeprazole (PRILOSEC) 20 mg capsule Take 40 mg by mouth daily. No current facility-administered medications for this visit. Labs: Lab Results Component Value Date CREATININE 2.73* 07/11/2014 K 3.6 07/11/2014 GLUCOSE 111 07/11/2014 HCT 37.8* 07/11/2014 WBC 6.7 07/11/2014 ROS: Review of Systems Constitutional: Negative for fever and chills. Respiratory: Negative for cough and chest tightness. Cardiovascular: Negative for chest pain. Gastrointestinal: Negative for vomiting, abdominal pain, diarrhea and constipation. Genitourinary: Negative for dysuria and hematuria. Skin: Negative for color change, pallor and rash. Neurological: Negative for tremors, weakness and numbness. Hematological: Does not bruise/bleed easily. All other systems reviewed and are negative. Body mass index is 31.03 kg/(m^2). Physical Exam: Physical Exam Constitutional: He is oriented to person, place, and time. He appears well- developed and well-nourished. No distress. HENT: Mouth/Throat: Oropharynx is clear and moist. No oropharyngeal exudate. Eyes: Conjunctivae are normal. Right eye exhibits no discharge. Left eye exhibits no discharge. No scleral icterus. Neck: No evidence of carotid bruits bilaterally Cardiovascular: Normal rate, regular rhythm and normal heart sounds. Exam reveals no gallop and no friction rub. No murmur heard. He has strong palpable bilateral brachial and radial artery pulses. The digits on the bilateral hands are pink and warm. He has a capillary refill time < 2 sec in the digits of the bilateral upperextremities Pulmonary/Chest: Effort normal. No respiratory distress. He has no wheezes. He has no rales. Abdominal: Soft. He exhibits no distension and no mass. There is no tenderness. There is no reboundand no guarding. Musculoskeletal: He exhibits no edema. Neurological: He is alert and oriented to person, place, and time. Skin: Skin is warm and dry. No rash noted. He is not diaphoretic. No erythema. No pallor. Psychiatric: He has a normal mood and affect. His behavior is normal. Judgment and thought content normal. Impression/Recommendations: Mr. Bolden is a 64-yo male with a history of ESRD in the setting of diabetes mellitus and hypertension. He was referred to my clinic for a dialysis access evaluation and based upon his vein mappingappears to be a candidate for a LEFT upper extremity brachiocephalic av fistula. We discussed the types of AV fistula and graft procedures in clinic today as well as the risks and benefits associated with this form of hemodialysis access. We discussed the possibility of steal syndrome and that in severe cases, this can result in tissue loss in the hand. He is aware of the thrombosis risk and the potential that the fistula will never be able to be used for access or may fail at any time following the procedure. Additional procedures may be necessary to correct problems with the access or to develop a new form of AV access for dialysis. We discussed the need for a maturation period of 2 - 3 months after the operation and that he will require a temporary dialysis catheter for dialysis during this time. The patient verbalized an understanding of these issues and would like to proceed with the workup in order to be cleared for the access procedure. He requires the followin. He is going to have his hepatic workup (labs, ultrasound etc) reports sent to my office from [facility]. I would like to confirm that his liver disease is not more advanced than he suggests in the clinic. He is making arragements to have the records faxed to our office. 2. I will confirm that a perioperative Plavix hold (7 days pre, ~ 2 days post) will not be an issuewith his neurologist (Dr. Shannan Plaza at [facility]). 3. Obtain 12-lead EKG results from [facility]. Patient arranging to have records faxed to our office. We will be able to perform this procedure under MAC + local anesthesia. We will make arrangements when I receive the above records for review. Counseling As above MD: JENNIFER AMARO MD documented in this encounter Plan of Treatment Upcoming Encounters Date Type Department Care Team (Late st Contact Info) Description 04/15/2024 10:00 AM EDT Hospital Encounter Non-[place]vasive [place] [address] Arrived documented as of this encounter Visit Diagnoses Diagnosis ESRD (end stage renal disease) End stage renal disease documented in this encounter Care Teams Clean Room Technician Relationship Specialty Start Date End Date Urbano Denis DO [address] [place] [address] [address] [place] [address] PCP - General 09/03/12 03/17/22 documented as of this encounter
--- OUTSIDE RECORDS SUMMARY | 2024-02-14 11:38 | XMS_ITS | Encounter Summary ---
Author Organization [facility] [place] [address] Care Team Providers Care Professional Services Consultant Name Role Phone AedelUrbano boland Primary Care Provider Encounter Details Date Type Department Care Team (Late st Contact Info) Description 05/11/2014 [place] [address] Joseph Cortés MD [facility] [place] [address] Social History Tobacco Use Types Packs/Day Years [...] AM EDT Hospital Encounter Non-[place] [address] Arrived documented as of this encounter Procedures Procedure Name Priority Date/Time Associated Diagnosis Comments FILM LIBRARY STORAGE ONLY ULTRASOUND STUDY Routine 05/11/2014 11:06 AM EST documented in this encounter Results * Film Library- Storage only Ultrasound Study (05/11/2014 11:06 AM EST) Anatomical Region Laterality Modality Other 05/11/2014 11:0 6 AM EST Narrative 09/20/2014 11:11 AM EDT This is a Non-reportable exam Procedure Note MEÑO, UNSIGNED REPORT - 09/20/2014 This is a Non-reportable exam Joseph Cortés MD [facility] RDERABLES documented in this encounter Visit Diagnoses Not on filedocumented in this encounter Care Teams Professional Services Consultant Relationship Specialty Start Date End Date Urbano Denis DO [address] [place] [address] PCP - General 09/03/12 03/17/22 documented as of this encounter
--- OUTSIDE RECORDS SUMMARY | 2024-02-14 11:38 | XMS_ITS | Encounter Summary ---
[place] [address] Care Team Providers Care Mild Disabilities Teacher Name Role Phone Adeel Urbano Primary Care Provider [phone] Reason for Referral * Diagnostic Test (Routine) - Closed Specialty Diagnoses / Procedures Referred By Humberto flor Referred To Contact Diagnoses ESRD (end stage renal disease) Procedures Echo pharm stress test (DSE) Shin Sebastian MD [facility] [place] [address] [facility] [place] [address] Referral ID Status Reason Start Date Expiration Date V isits Requested Visits Authorized [id number] Closed Specialty Service Requested 05/29/2015 05/28/2016 1 1 Reason for Visit * Consultation (Routine) - Closed Specialty Diagnoses / Procedures Referred By Contpaula flor Referred To Contact Cardiology Procedures Patient is undergoing considration for renal transplant. Please see scanned documents (Stress test, Cath etc.). Patient needs formal evaluation with Dr. Brown or delegate for clearance and further testing as determined. Byron Brown MD [facility] [place] [address] Referral ID Status Reason Start Date Expiration Date Visits Re quested Visits Authorized [id number] Closed 05/14/2015 05/13/2016 1 1 Encounter Details Date Type Department Care Team (Latest Contact Info) Description 05/29/2015 10:00 AM EST Office Visit Cardiology at [address] [place] [place] [address] Shin Sebastian MD [facility] [place] [address] ESRD (end stage renal disease); Pre-operative cardiovascular examination Social History Tobacco Use Types Packs/Day Years [...] Sign Reading Time Taken Comments Blood Pressure 140/78 05/29/2015 10:16 AM EST Pulse 64 05/29/2015 10:16 AM EST regular, radial Temperature - - Respiratory Rate - - Oxygen Saturation 98% 05/29/2015 10: 16 AM EST Inhaled Oxygen Concentration - - Weight 102.2 kg (225 lb 6.4 oz) 05/29/2015 10:16 AM EST Height 176.5 cm (5' 9.5) 05/29/2015 10 :16 AM EST Body Mass Index 32.81 05/29/2015 10:16 AM EST documented in this encounter Progress Notes * Shin Sebastian MD - 05/29/2015 10:18 AM EST HPI: Cody Bolden is a 64 y.o. year old male with a past medical history of end- stage renal disease, dm, htn, and hepatitis C who presents for preoperative evaluation for renal transplantation. He had a stress echocardiogram performed which was negative for ischemia, and demonstrated preserved leftventricular ejection fraction, however was suboptimal secondary to failure to achieve 85% of maximal peak heart rate. He has no chest pain, shortness of breath. He has some residual numbness from thestroke. He does not exercise regularly. He works around the house, but no sustained heavy physical activity. He has no chest pain. PMHX Patient Active Problem List Diagnosis Code ??? DM type 2 (diabetes mellitus, type 2) E11.9 ??? Hypertension I10 ??? DJD (degenerative joint disease) M19.90 ??? Hematuria R31.9 ??? ESRD (end stage renal disease) N18.6 ??? HCV (hepatitis C virus) B19.20 ??? CGN (chronic glomerulonephritis) N03.9 ??? Chronic kidney disease, stage V N18.5 ??? Essential hypertension I10 ??? Hepatitis C virus infection B19.20 stroke -- unknown cause MEDS: reviewed SOCHX History Social History ??? Marital Status: Spouse Name: N/A Number of Children: N/A ??? Years of Education: N/A Social History Main Topics ??? Smoking status: Current Some Day Smoker Types: Cigars ??? Smokeless tobacco: Never Used Comment: cigars, only sometimes ??? Alcohol Use: No ??? Drug Use: No ??? Sexual Activity: None Other Topics Concern ??? None Social History Narrative FAMHX No family history on file. ROS Negative for blood in stool or urine. No fevers or chills. No recent syncope. Otherwise all other systems were reviewed and found to be negative. Physical Examination Filed Vitals: 05/29/15 1016 BP: 140/78 Pulse: 64 General: no acute distress Behavioral: Alert and oriented to person place and time Heent: Cranial nerves 2-12 grossly intact, JVP not elevated, no carotid bruits CV: RRR normal s1 and s2 without murmurs present Lungs: CTA bilaterally Abd: soft, nt, bs positive, no pulsatile masses Extrem: no lower extremity edema Pulses: radial Pulses = bilaterally Skin: warm, dry without rashes Neuro: muscle strength grossly = bilaterally EKG: Performed. Ekg reviewed by myself, NSR with lafb and anterolateral t wave inversions. LABS: Labs reviewed by myself No results found for this or any previous visit (from the past 24 hour(s)). Assessement and Plan: 64-year-old male with a past medical history of hypertension, end-stage renal disease, and hepatitis C, now hemodialysis dependent. He is presenting for preoperative evaluation for renal transplantation. 1. Preoperative evaluation: Obtain dobutamine stress echocardiogram to evaluate cardiac structure and function and obtain an optimal stress examination. 2. Further recommendations pending results of stress examination above documented in this encounter Plan of Treatment Upcoming Encounters Date Type Department Care Team (Late st Contact Info) Description 04/15/2024 10:00 AM EDT Hospital Encounter Non-[place] [address] Arrived documented as of this encounter Procedures Procedure Name Priority Date/Time Associated Diagnosis Comments EKG 12-LEAD Routine 05/29/2015 10:24 AM EST ESRD (end stage renal disease) Pre-operative cardiovascular examination documented in this encounter Results * STRESS ECHO W CONTRAST (06/14/2015 11:32 AM EST) EF 60 HEARTLAB SYSTEM Anatomical Region Laterality Modality Other 06/14/2015 Narrative 06/14/2015 12:01 PM EST Procedure: ?Stress Echocardiogram Patient: ?MABLE DAVENPORT P ? (Age): 1950(64y) Med Rec#: ? [id number] ?Sex: ?M ? Site Loc: ? [facility] ?Ht / Wt: ??177(cm)/102(kg) Pt. Loc: ?Echo Lab ?BSA: ?2.19 Study Date: ?? 06/14/2015 ?Pt. Type: Tape: ? Referring: Shin Sebastian ([id number]) Referring: UNKNOWN Reading: Joseph Zuniga ([id number]) Human Services Manager: Chiquis Kelly Nurse: Meka Kim Diagnosis: *ICD-10-PCS End stage renal disease (N18.6) CPT Codes: *Stress Echo (14724) *Color Doppler (41626) *Doppler LTD (25411) *ECG Interpretation (50093) *Definity (12980EO) Stage ? BP ?HR ? Rest ?157/82 [...] E-wave Vmax ?0.5 ?m/sec ? MV deceleration [id number] ?msec ? MV A-wave Vmax ?0.6 ?m/sec [...] ?Normal ?Normal ? Mid-Inferoseptal ?Normal ?Normal ? Wray-Septal ? Normal ?Normal ? Wray-Anterior ? Normal ?Normal ? Wray-Lateral ?Normal ?Normal ? Wray-Inferior ? Normal ?Normal ? Wray-Tip ?Normal ?Normal ? This report has been electronically signed by: Joseph Zuniga M.D. ? 06/14/2015 12:01:18 Images reviewed and interpretation verified [facility] Cardiac Ultrasound Laboratory Procedure Note Joseph Zuniga MD - 06/14/2015 Procedure: Stress Echocardiogram Patient: MABLE DORANTES(Age): 1950(64y) Med Rec#: [id number] Sex: M Site Loc: [facility] Ht / Wt: 177(cm)/102(kg) Pt. Loc: Echo Lab BSA: 2.19 Study Date: 06/14/2015 Pt. Type: Tape: Referring: Shin Sebastian ([id number]) Referring: UNKNOWN Reading: Joseph Zuniga ([id number]) Human Services Manager: Chiquis Kelly Nurse: Meka Kim Diagnosis: *ICD-10-PCS End stage renal disease (N18.6) CPT Codes: *Stress Echo (41372) *Color Doppler (91140) *Doppler LTD (56236) *ECG Interpretation (61300) *Definity (64995PO) Stage BP HR Rest 157/82 60 Low [...] MV E-wave Vmax 0.5 m/sec MV deceleration [id number] msec MV A-wave Vmax 0.6 m/sec MV [...] Normal Mid-Inferior Normal Normal Mid-Inferoseptal Normal Normal Wray-Septal Normal Normal Wray-Anterior Normal Normal Wray-Lateral Normal Normal Wray-Inferior Normal Normal Wray-Tip Normal Normal This report has been electronically signed by: Jospeh Zuniga M.D. 06/14/2015 12:01:18 Images reviewed and interpretation verified [facility] Cardiac Ultrasound Laboratory Shin Sebastian MD ECHO ORDERABLES * EKG 12 Lead (05/29/2015 10:24 AM EST) Ventricular rate 61 BPM MUSE SYSTEM Atrial Rate 61 BPM MUSE SYSTEM P-R Interval 192 ms MUSE SYSTEM QRS Duration 106 ms MUSE SYSTEM Q-T Interval 428 ms MUSE SYSTEM QTC Calculated (Bezet) 430 ms MUSE SYSTEM Calculated P [place] -19 degrees MUSE SYSTEM Calculated R [place] -54 degrees MUSE SYSTEM Calculated T [place] -10 degrees MUSE SYSTEM INTERPRETATION Normal sinus rhythm Left anterior fascicular block T wave abnormality Inferolateral leads Abnormal ECG No previous ECGs available Confirmed by MD AUTUMN, OG ([id number]) on 05/29/2015 2:10:24 PM MUSE SYSTEM 05/29/2015 10:2 4 AM EST 05/29/2015 2:10 PM EST Shin Sebastian MD ECG ORDERABLES MUSE SYSTEM documented in this encounter Visit Diagnoses Diagnosis ESRD (end stage renal disease) End stage renal disease Pre-operative cardiovascular examination ESRD (end stage renal disease) End stage renal disease documented in this encounter Care Teams Mild Disabilities Teacher Relationship Specialty Start Date End Date Urbano Denis DO [address] [place] [address] PCP - General 09/03/12 03/17/22 documented as of this encounter
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
--- OUTSIDE RECORDS SUMMARY | 2024-02-14 11:38 | XMS_ITS | Encounter Summary ---
Author Organization [facility] [place] [address] Care Team Providers Care Blueprinting Machine Operator Name Role Phone Urbano Denis DO Primary Care Provider [phone] Encounter Details Date Type Department Care Team (Late st Contact Info) Description 01/04/2015 Telephone Nephrology [place] [phone] Urbano Loya MD [facility] [place] [address] Social History Tobacco Use Types Packs/Day Years Used Date Smoking Tobacco: Former Sex and Gender Information Value Date Recorded Sex Assigned at Not on file Gender Identity Not on file Sexual Orientation Not on file documented as of this encounter Miscellaneous Notes * Telephone Encounter - Urbano Loya MD - 01/04/2015 4:51 PM EDT See phone note 01/04/15 documented in this encounter Plan of Treatment Upcoming Encounters Date Type Department Care Team (Late st Contact Info) Description 04/15/2024 10:00 AM EDT Hospital Encounter Non-Invasive [place] [phone] Arrived documented as of this encounter Visit Diagnoses Not on filedocumented in this encounter Care Teams Blueprinting Machine Operator Relationship Specialty Start Date End Date Urbano Denis DO [address] [place] [address] PCP - General 09/03/12 03/17/22 documented as of this encounter
--- OUTSIDE RECORDS SUMMARY | 2024-02-14 11:38 | XMS_ITS | Encounter Summary ---
Author Organization [facility] [place] [address] Care Team Providers Care Account Support Analyst Name Role Phone Urbano Denis DO Primary Care Provider [phone] Encounter Details Date Type Department Care Team (Late st Contact Info) Description 01/24/2015 Orders Only [place] [address] Urbaon Loya MD [facility] [place] [address] Social History Tobacco Use Types Packs/Day Years [...] AM EDT Hospital Encounter Non-Invasive [place] [address] Arrived documented as of this encounter Visit Diagnoses Not on filedocumented in this encounter Care Teams Account Support Analyst Relationship Specialty Start Date End Date Urbano Denis DO [address] [place] [address] PCP - General 09/03/12 03/17/22 documented as of this encounter
--- OUTSIDE RECORDS SUMMARY | 2024-02-14 11:38 | XMS_ITS | Encounter Summary ---
Author Organization [facility] [place] [address] Care Team Providers Care Metal Baler Name Role Phone AdeelUrbano boland Primary Care Provider Encounter Details Date Type Department Care Team (Late st Contact Info) Description 05/02/2014 Orders [place] [address]és [address] [facility] [place] [address] Social History Tobacco Use Types Packs/Day Years [...] AM EDT Hospital Encounter [place] [address] Arrived documented as of this encounter Procedures Procedure Name Priority Date/Time Associated Diagnosis Comments FILM LIBRARY STORAGE ONLY MR HEAD Routine 05/02/2014 11:02 AM EDT documented in this encounter Results * Film Library- Storage only MR Head (05/02/2014 11:02 AM EDT) Anatomical Region Laterality Modality Other 05/02/2014 11:0 2 AM EDT Narrative 09/20/2014 11:08 AM EDT This is a Non-reportable exam Procedure Note MEÑO, UNSIGNED REPORT - 09/20/2014 This is a Non-reportable exam Joseph Cortés [place] [facility] [place] RDERAB[place] documented in this encounter Visit Diagnoses Not on filedocumented in this encounter Care Teams Metal Baler Relationship Specialty Start Date End Date Urbano Denis DO [address] [place] [address] PCP - General 09/03/12 03/17/22 documented as of this encounter
--- OUTSIDE RECORDS SUMMARY | 2024-02-14 11:38 | XMS_ITS | Encounter Summary ---
Author Organization [facility] [place] [address] Care Team Providers Care Healthcare Risk Control Consultant Name Role Phone AdeelUrbano toscano Primary Care Provider [phone] Encounter Details Date Type Department Care Team (Late st Contact Info) Description 07/05/2015 Orders Only [place] [address] Ellen Foote RN Pre-transplant evaluation for kidney transplant; End stage [...] AM EDT Hospital Encounter Non[place] [address] Arrived documented as of this encounter Results * Cerebrovascular Duplex, Bilateral (07/17/2015 1:58 PM EST) VB Text Report Department: Vascular Surgery Lab Patient: [id number] (MABLEETHEL) CPT: 31210 ICD10: N18.6;Z01.818 Referring Physician: TAL PURI ?? [...] Text Report Department: Vascular Surgery Lab Patient: [id number] (ETHEL AKINS) CPT: 93520 ICD10: Z01.818;N18.6 Referring Physician: TAL PURI ?? [...] EST Tal Puri MD VASCULAR ORDERABL ES Performing Organization Address [facility] de Phone Number VASCUBASE * Varicella zoster Antibody, IgG (07/17/2015 1:44 PM EST) Varicella Zoster Antibody IgG Pos CERNER MILLENNIUM Blood specimen (specimen) 07/17/2015 1:44 PM EST 07/18/2015 7:56 AM EST Narrative Resulting Agency Comment Spec In Lab Tal Puri MD IMMUNOLOGY ORDERA BLES Performing Organization Address [facility] de Phone Number CERNER MILLENNIUM * Toxoplasma Antibody, IgM (07/17/2015 1:44 PM EST) Toxoplasma Antibody IgM Neg Neg CERNER MILLENNIUM Blood specimen (specimen) 07/17/2015 1:44 PM EST 07/18/2015 7:56 AM EST Narrative Resulting Agency Comment Spec In Lab Tal Puri MD IMMUNOLOGY ORDERA BLES Performing Organization Address [facility] de Phone Number CERNER MILLENNIUM * Toxoplasma Antibody, IgG (07/17/2015 1:44 PM EST) Toxoplasma Antibody IgG Neg Neg CERNER MILLENNIUM Blood specimen (specimen) 07/17/2015 1:44 PM EST 07/18/2015 7:56 AM EST Narrative Resulting Agency Comment Spec In Lab Tal Puri MD IMMUNOLOGY ORDERA BLES Performing Organization Address [facility] Co de Phone Number CERNER DANELLEENNIUM * (ABNORMAL) HSV 1 and 2 IgG Antibodies (07/17/2015 1:44 PM EST) HSV Type 1 Ab, IgG Pos(A) Neg CERNER MILLENNIUM HSV Type 2 Ab, IgG Equivocal( A) Neg CERNER MILLENNIUM Blood specimen (specimen) 07/17/2015 1:44 PM EST 07/18/2015 7:56 AM EST Narrative Resulting Agency Comment Spec In Lab Tal Puri MD IMMUNOLOGY ORDERA BLES Performing Organization Address [facility] de Phone Number CERNER MILLENNIUM * (ABNORMAL) Brennan-Schreiber Virus Antibodies (07/17/2015 1:44 PM EST) EBV [...] Resulting Agency Comment Spec In Lab Tal Puri MD IMMUNOLOGY ORDERA BLES Performing Organization Address [facility] Co de Phone Number [facility] documented in this encounter Visit Diagnoses Diagnosis Pre-transplant evaluation for kidney transplant Other specified pre-operative examination End stage renal disease documented in this encounter Care Teams Healthcare Risk Control Consultant Relationship Specialty Start Date End Date Urbano Denis DO [address] [place] [address] PCP - General 09/03/12 03/17/22 documented as of this encounter
--- OUTSIDE RECORDS SUMMARY | 2024-02-14 11:38 | XMS_ITS | Encounter Summary ---
Author Organization Formerly [facility] [place] [address] Care Team Providers Care Drying Room Operator Name Role Phone [place] Denis DO Primary Care Provider Encounter Details Date Type Department Care Team (Late st Contact Info) Description 07/11/2014 9:00 AM EST Follow-Up [place] [address] [place]ia Loya MD [facility] [place] [address] CKD (chronic kidney disease) stage 3, GFR 30-59 ml/min (Primary Dx); Hypertension; Proteinuria; DM type 2 (diabetes mellitus, type 2); Hyperparathyroidism; H/O hematuria Discharge Disposition: Home Social History Tobacco Use Types Packs/Day Years Used Date Smoking Tobacco: Former Sex and Gender Information Value Date Recorded Sex Assigned at Not on file Gender Identity Not on file Sexual Orientation Not on file documented as of this encounter Last Filed Vital Signs Vital Sign Reading Time Taken Comments Blood Pressure 135/79 07/11/2014 8:54 AM EST Pulse 64 07/11/2014 8:54 AM EST Temperature - - Respiratory Rate - - Oxygen Saturation - - Inhaled Oxygen Concentration - - Weight 104.9 kg (231 lb 3.2 oz) 07/11/2014 8:54 AM EST Height 180.3 cm (5' 11) 07/11/2014 8:54 AM EST Body Mass Index 32.25 07/11/2014 8:54 AM EST documented in this encounter Progress Notes * Albania Loya MD - 07/11/2014 9:25 AM EST Nephrology/Hypertension Clinic Follow-up Note [id number] ID: 63 y.o.year-old male for follow up of CKD. Past Medical History: 1. Type 2 DM 2. Hypertension 3. Microhematuria 4. H/o colon polyp 5. D/p rotator cuff repair 6. GERD 7. S/p right knee surgery 8. CKD - felt secondary to diabetic nephropathy 9. BPH 10. H/o CVA Outpatient Encounter Prescriptions as of 07/11/2014 Medication Sig Dispense Refill ??? apixaban (ELIQUIS) 5 mg Tablet Take 5 mg by mouth 2 times daily. ??? pravastatin (PRAVACHOL) 20 mg Tablet Take 20 mg by mouth daily. ??? clopidogrel (PLAVIX) 75 mg Tablet Take 75 mg by mouth daily. ??? labetalol (NORMODYNE) 100 mg Tablet Take 50 mg by mouth 2 times daily. ??? ONE TOUCH ULTRA TEST Strip 0 ??? ONE TOUCH ULTRAMINI Kit 0 ??? chlorhexidine (PERIDEX) 0.12 % Mouthwash 0 ??? FLUZONE QUAD [id number], PF, 60 mcg (15 mcg x 4)/0.5 mL Syringe 0 ??? ONE TOUCH DELICA LANCETS 30 gauge Misc 0 ??? doxazosin (CARDURA) 4 mg Tablet Take 1 tablet by mouth nightly. 90 tablet 3 ??? omeprazole (PRILOSEC) 20 mg capsule Take 40 mg by mouth daily. ? ? potassium & sodium phosphates (NEUTRA-PHOS) 280-160-250 mg PwPk Take 99 g by mouth daily. ??? magnesium oxide (MAG-OX) 400 mg tablet Take 500 mg by mouth daily. ??? amlodipine (NORVASC) 10 mg tablet ??? losartan-hydrochlorothiazide (HYZAAR) 100-25 mg per tablet No facility-administered encounter medications on file as of 07/11/2014. No Known Allergies S: Has been started on Eliquis out of concern that his CVA may have been related to AF. Blood sugars remain well controlled, generally 100-140. No chest pain, dyspnea, n/v, dysuria, anorexia. O: Filed Vitals: 07/11/14 0854 BP: 135/79 Pulse: 64 Height: 180.3 cm (5' 11) Weight: 104.872 kg (231 lb 3.2 oz) General: WDWN male NAD Eye: Conjunctivae clear CV: RRR Resp: CTA Abd: S/NT Ext: Tr edema Labs: Results for ETHEL AKINS ( ) as of 07/11/2014 13:46 Ref. Range 07/11/2014 09:37 07/11/2014 09:43 WBC Latest Range: 4.0-10.0 x10(3)/mcL 6.7 RBC Latest Range: 4.63-6.08 x10(6)/mcL 4.42 (L) Hemoglobin Latest Range: 13.7-17.5 gm/dL 13.1 (L) Hematocrit Latest Range: 40.0-51.0 % 37.8 (L) MCV Latest Range: 79.0-92.0 fL 85.5 MCH Latest Range: 25.6-32.2 pg 29.6 MCHC Latest Range: 32.0-36.5 gm/dL 34.7 RDWSD Latest Range: 35.0-46.0 fL 42.1 RDWCV Latest Range: 10.9-14.4 % 13.6 Platelets Latest Range: 145-370 x10(3)/mcL 270 MPV Latest Range: 9.0-12.0 fL 9.8 Neutr Abs (ANC) Latest Range: 1.50-6.30 x10(3)/mcL 4.53 Neutrophils % No range found 67.9 Immature Gran % No range found 0.10 Lymphocytes % No range found 22.2 Monocytes % No range found 5.8 Eosinophils % No range found 3.1 Basophils % No range found 0.9 Ayesha Gran Abs Latest Range: 0.00-0.05 x10(3)/mcL 0.01 Lymphocytes Abs Latest Range: 1.0-3.6 x10(3)/mcL 1.5 Monocyte Abs Latest Range: 0.2-1.0 x10(3)/mcL 0.4 Eosinophils Abs Latest Range: 0.0-0.5 x10(3)/mcL 0.2 Basophils Abs Latest Range: 0.0-0.2 x10(3)/mcL 0.1 Sodium Latest Range: 135-145 mmol/L 143 Potassium Latest Range: 3.5-5.0 mmol/L 3.6 Chloride Latest Range: 98-107 mmol/L 104 CO2 Latest Range: 22-31 mmol/L 27 Anion Gap Latest Range: 5-15 mmol/L 12 BUN Latest Range: 10-20 mg/dL 41 (H) Creatinine Latest Range: 0.80-1.50 mg/dL 2.73 (H) Estimated GFR Latest Range: >=60 24 (L) Glucose Lvl Latest Range: 60-199 mg/dL 111 Calcium Latest Range: 8.5-10.5 mg/dL 9.1 Hemoglobin A1C Latest Range: <=5.6 % 5.9 (H) Est Avg Gluc No range found 123 Phosphorus Latest Range: 2.5-4.5 mg/dL 3.4 Albumin Latest Range: 3.2-5.2 gm/dL 3.7 Total Prot Elec Latest Range: 6.4-8.3 gm/dL 6.4 Albumin Elect Latest Range: 3.60-6.00 gm/dL 3.62 Alpha1-Globulin Latest Range: 0.10-0.30 gm/dL 0.19 Alpha2-Globulin Latest Range: 0.40-0.90 gm/dL 0.78 Beta Globulin Latest Range: 0.50-1.00 gm/dL 0.88 Gamma Globulin Latest Range: 0.50-1.30 gm/dL 0.93 M1 Band Latest Range: None Detected gm/dL None Detected Scan No range found See Note U Protein Ran Latest Range: 0-12 mg/dL 741 (H) PTH Latest Range: 15-65 pg/mL 164 (H) U Creatinine No range found 209 Prot/Cre Ratio No range found 3.5 A/P: 1. Renal: stage 4 CKD. Cr somewhat improved from last visit. BP, DM well controlled. Mild anemia but phos and bicarbonate are normal. He continues to have significant proteinuria. - continue losartan - avoid nephrotoxins, including NSAIDS - start calcitriol for hyperparathyroidism - f/u 3 months CC: ALB[place] DENIS DO @[email or web address]@ documented in this encounter Plan of Treatment Upcoming Encounters Date Type Department Care Team (Late st Contact Info) Description 04/15/2024 10:00 AM EDT Hospital Encounter [place] [address] Arrived documented as of this encounter Procedures Procedure Name Priority Date/Time Associated Diagnosis Comments PROTEIN/CREATININE RATIO, URINE Routine 07/11/2014 9:43 AM EST Hypertension Proteinuria DM type 2 (diabetes mellitus, type 2) CKD (chronic kidney disease) stage 3, GFR 30-59 ml/min Hyperparathyroidism H/O hematuria PROTEIN ELECTROPHORESIS, URINE, RANDOM Routine 07/11/2014 9:43 AM EST Hypertension Proteinuria DM type 2 (diabetes mellitus, type 2) CKD (chronic kidney disease) stage 3, GFR 30-59 ml/min Hyperparathyroidism H/O hematuria PTH Routine 07/11/2014 9:37 AM EST Hypertension Proteinuria DM type 2 (diabetes mellitus, type 2) CKD (chronic kidney disease) stage 3, GFR 30-59 ml/min Hyperparathyroidism H/O hematuria HEMOGRAM Routine 07/11/2014 9:37 AM EST Hypertension Proteinuria DM type 2 (diabetes mellitus, type 2) CKD (chronic kidney disease) stage 3, GFR 30-59 ml/min Hyperparathyroidism H/O hematuria DIFFERENTIAL, AUTOMATED Routine 07/11/2014 9:37 AM EST Hypertension Proteinuria DM type 2 (diabetes mellitus, type 2) CKD (chronic kidney disease) stage 3, GFR 30-59 ml/min Hyperparathyroidism H/O hematuria CBC (WITH DIFF) Routine 07/11/2014 9:37 AM EST Hypertension Proteinuria DM type 2 (diabetes mellitus, type 2) CKD (chronic kidney disease) stage 3, GFR 30-59 ml/min Hyperparathyroidism H/O hematuria PROTEIN ELECTROPHORESIS, SERUM Routine 07/11/2014 9:37 AM EST Hypertension Proteinuria DM type 2 (diabetes mellitus, type 2) CKD (chronic kidney disease) stage 3, GFR 30-59 ml/min Hyperparathyroidism H/O hematuria PHOSPHORUS Routine 07/11/2014 9:37 AM EST Hypertension Proteinuria DM type 2 (diabetes mellitus, type 2) CKD (chronic kidney disease) stage 3, GFR 30-59 ml/min Hyperparathyroidism H/O hematuria HEMOGLOBIN A1C Routine 07/11/2014 9:37 AM EST Hypertension Proteinuria DM type 2 (diabetes mellitus, type 2) CKD (chronic kidney disease) stage 3, GFR 30-59 ml/min Hyperparathyroidism H/O hematuria ALBUMIN LEVEL Routine 07/11/2014 9:37 AM EST Hypertension Proteinuria DM type 2 (diabetes mellitus, type 2) CKD (chronic kidney disease) stage 3, GFR 30-59 ml/min Hyperparathyroidism H/O hematuria BASIC METABOLIC PANEL Routine 07/11/2014 9:37 AM EST Hypertension Proteinuria DM type 2 (diabetes mellitus, type 2) CKD (chronic kidney disease) stage 3, GFR 30-59 ml/min Hyperparathyroidism H/O hematuria documented in this encounter Results * (ABNORMAL) Protein Electrophoresis, urine, random (07/11/2014 9:43 AM EST) Protein, Urine 741(H) 0 - 12 mg/dL CERNER MILLENNIUM U Albumin 83 % total CERNER MILLENNIUM Globulin, Urine 17 % total CERN ER MILLENNIUM M1 Band, Urine None Detected None Detected % total CERNER MILLENNIUM Comment: No monoclonal immunoglobulins or free light chains detected in this patient's urine sample. U Scan See Note CERNER MILLENNIUM Comment:Please see scanned r eport in Chart Review under the [facility] Laboratory Heading. Urine specimen (specimen) 07/11/2014 9:43 AM EST 07/11/2014 9:47 AM EST Narrative Resulting Agency Comment Spec In Lab [place] Loya MD URINE ORDERABLES CERNER [employer]NIUM * (ABNORMAL) Protein/Creatinine Ratio, urine (07/11/2014 9:43 AM EST) Creatinine, Urine 209 mg/dL CERNER MILLENNIUM Protein, Urine 741(H) 0 - 12 mg/dL CERNER MILLENNIUM Protein / Creatinine Ratio, Urine 3.5 ratio CERNER MILLENNIUM Urine specimen (specimen) 07/11/2014 9:43 AM EST 07/11/2014 9:47 AM EST Narrative Resulting Agency Comment Spec In Lab [place] Loya MD URINE ORDERABLES CERNER MILLENNIUM * Differential, Automated (07/11/2014 9:37 AM EST) Neutrophil % 67.9 % CERNER MILLENNIUM Neutrophil Absolute 4.53 1.50 - 6.30 x10(3)/mcL CERNER MILLENNIUM Lymph % 22.2 % CERNER MILLENNIUM Lymphocytes Abs 1.5 1.0 - 3.6 x10(3)/mcL CERNER MILLENNIUM Monocyte % 5.8 % CERNER MILLENNIUM Monocyte Abs 0.4 0.2 - 1.0 x10(3)/mcL CERNER MILLENNIUM Eos % 3.1 % CERNER MILLENNIUM Eosinophils Abs 0.2 0.0 - 0.5 x10(3)/mcL CERNER MILLENNIUM Basophil % 0.9 % CERNER MILLENNIUM Baso Absolute 0.1 0.0 - 0.2 x10(3)/mcL CERNER MILLENNIUM Immature Gran % 0.10 % CERN ER MILLENNIUM Comment: Immature granulocytes(IG's)percentage and absolute count will include metamyelocytes, myelocytes, and promyelocytes. Blood smears from CBCs yielding IG's will be scanned manually for concordance. If this scan disagrees with the automated IG or if promyelocytes are noted, a manual differential will be performed. Immature Gran Absolute 0.01 0.00 - 0.05 x10(3)/mcL CERNER MILLENNIUM Blood specimen (specimen) 07/11/2014 9:37 AM EST 07/11/2014 9:41 AM EST Narrative Resulting Agency Comment Spec In Lab [place] Loya MD HEMATOLOGY ORDERABLE S CERNER MILLENNIUM * (ABNORMAL) Hemogram (07/11/2014 9:37 AM EST) White Blood Cell 6.7 4.0 - 10.0 x10(3)/mc L CERNER MILLENNIUM Red Blood Cell 4.42(L) 4.63 - 6.08 x10(6)/mc L CERNER MILLENNIUM Hemoglobin 13.1(L) 13.7 - 17.5 gm/dL CERNER MILLENNIUM Hematocrit 37.8(L) 40.0 - 51.0 % CERNER MILLENNIUM Mean Cell Volume 85.5 79.0 - 92.0 fL CERNER MILLENNIUM Mean Cell Hemoglobin 29.6 25.6 - 32.2 pg CERNER MILLENNIUM Mean Cell Hemoglobin Concentration 34.7 32.0 - 36.5 gm/dL CERNER MILLENNIUM Platelet 270 145 - 370 x10(3)/mc L CERNER MILLENNIUM RDW Standard Deviation 42.1 35.0 - 46.0 fL CERNER MILLENNIUM RDW coefficient of variation 13.6 10.9 - 14.4 % CERNER MILLENNIUM Mean Platelet Volume 9.8 9.0 - 12.0 fL CERNER MILLENNIUM Blood specimen (specimen) 07/11/2014 9:37 AM EST 07/11/2014 9:41 AM EST Narrative Resulting Agency Comment Spec In Lab [place] Loya MD HEMATOLOGY ORDERABLE S CERNER MILLENNIUM * Protein Electrophoresis, serum (07/11/2014 9:37 AM EST) Pathologist [facility] Total Prot Electrophoresis 6.4 6.4 - 8.3 gm/dL CERNER MILLENNIUM Albumin Electrophoresis 3.62 3.60 - 6.00 gm/dL CERNER MILLENNIUM Alpha 1 Globulin 0.19 0.10 - 0.30 gm/dL CERNER MILLENNIUM Alpha 2 Globulin 0.78 0.40 - 0.90 gm/dL CERNER MILLENNIUM Beta Globulin 0.88 0.50 - 1.00 gm/dL CERNER MILLENNIUM Gamma Globulin 0.93 0.50 - 1.30 gm/dL CERNER MILLENNIUM M1 Band None Detected None Detected gm/dL CERNER MILLENNIUM Scan See Note [facility] Comment:Please see scanned r eport in Chart Review under the [facility] Laboratory Heading. Blood specimen (specimen) 07/11/2014 9:37 AM EST 07/11/2014 9:41 AM EST Narrative Resulting Agency Comment Spec In Lab [place] Loya MD CHEMISTRY ORDERABLES BENEDICT COOK * (ABNORMAL) Hemoglobin A1c (07/11/2014 9:37 AM EST) Hemoglobin A1c 5.9(H) <=5.6 % SONJA COOK Comment: Reference Range: 4.3 - 5.6% 5.7 [...] Mellitus, Diabetes Care 2013; 36: Suppl. 1, I08-22 Estimated Average Glucose 123 mg/dL [facility] Comment: eAG equivalents for HbA1c percentages: HbA1c(%) ?eAG(mg/dL) 6.0 ?126 6.5 ?140 7.0 ?154 7.5 ?169 8.0 ?183 8.5 ?197 9.0 ?212 9.5 ?226 10.0 ? 240 Limitations: The eAG calculation has not been validated on women, individuals below 18 years old and above 70 years old, and individuals with hemoglobinopathies. Additional resources are available on the ADA website: [email or web address].com/DHMCadacalc Harjeet MENDOSA, Chanel J, Philip R, et al. ??Translating the A1C assay into estimated average glucose values. ??Diabetes Care 2008:31(8):9738-8572. Blood specimen (specimen) 07/11/2014 9:37 AM EST 07/11/2014 9:41 AM EST Narrative Resulting Agency Comment Spec In Lab [place] Loya MD CHEMISTRY ORDERABLES Performing Organization Address [facility] Co de Phone Number BENEDICT COOK * Phosphorus (07/11/2014 9:37 AM EST) Phosphorus 3.4 2.5 - 4.5 mg/dL [facility] Blood specimen (specimen) 07/11/2014 9:37 AM EST 07/11/2014 9:41 AM EST Narrative Resulting Agency Comment Spec In Lab [place] Loya MD CHEMISTRY ORDERABLES Performing Organization Address City/[facility] Co de Phone Number BENEDICT COOK * Albumin Level (07/11/2014 9:37 AM EST) Albumin 3.7 3.2 - 5.2 gm/dL [facility] Blood specimen (specimen) 07/11/2014 9:37 AM EST 07/11/2014 9:41 AM EST Narrative Resulting Agency Comment Spec In Lab [place] Loya MD CHEMISTRY ORDERABLES Performing Organization Address [facility] Co de Phone Number BENEDICT COOK * (ABNORMAL) PTH (07/11/2014 9:37 AM EST) Parathyroid Hormone 164(H) 15 - 65 pg/mL CERNER DANELLEENNIUM Blood specimen (specimen) 07/11/2014 9:37 AM EST 07/11/2014 9:41 AM EST Narrative Resulting Agency Comment Spec In Lab [place] Loya MD CHEMISTRY ORDERABLES [facility] * (ABNORMAL) Basic Metabolic Panel (non-fasting) (07/11/2014 9:37 AM EST) Glucose 111 60 - 199 mg/dL CERNER MILLENNIUM Comment:Diabetes: >=200 mg/d L plus symptoms Blood Urea Nitrogen 41(H) 10 - 20 mg/dL CERNER MILLENNIUM Creatinine 2.73(H) 0.80 - 1.50 mg/dL CERNER MILLENNIUM Comment: Please note that the pediatric reference intervals supplied above were not validated at [facility]. Results from pediatric patients should be interpreted in conjunction to the patient's age, height and muscle mass. Sodium 143 135 - 145 mmol/L CERNER MILLENNIUM Potassium 3.6 3.5 - 5.0 mmol/L CERNER MILLENNIUM Comment: Please note: ??Patients with WBC >100,000 may have falsely elevated Potassium levels. ??For accurate Potassium quantification in these patients send serum separator tube (gold top) for subsequent determinations. ??Contact the Clinical Chemistry Laboratory if there are any questions. Chloride 104 98 - 107 mmol/L CERNER MILLENNIUM Carbon Dioxide 27 22 - 31 mmol/L CERNER MILLENNIUM Anion Gap 12 5 - 15 mmol/L CERNER MILLENNIUM Calcium 9.1 8.5 - 10.5 mg/dL CERNER MILLENNIUM Est Glomerular Filtration Rate 24(L) >=60 CERNER MILLENNIUM Comment: This estimated GFR (eGFR) value was [...] the following links into your internet browser. [email or web address] Blood specimen (specimen) 07/11/2014 9:37 AM EST 07/11/2014 9:41 AM EST Narrative Resulting Agency Comment Spec In Lab [place] Loya MD CHEMISTRY ORDERABLES Performing Organization Address City/State/[facility] Co de Phone Number [facility] documented in this encounter Visit Diagnoses Diagnosis CKD (chronic kidney disease) stage 3, GFR 30-59 ml/min- Primary Chronic kidney disease, Stage III (moderate) Hypertension Unspecified essential hypertension Proteinuria DM type 2 (diabetes mellitus, type 2) Type II or unspecified type diabetes mellitus without mention of complication, not stated as uncontrolled Hyperparathyroidism Hyperparathyroidism, unspecified H/O hematuria Personal history of other disorder of urinary system documented in this encounter Care Teams Drying Room Operator Relationship Specialty Start Date End Date [place] Denis DO [address] [place] [address] PCP - General 09/03/12 03/17/22 documented as of this encounter
--- OUTSIDE RECORDS SUMMARY | 2024-02-14 11:38 | XMS_ITS | Encounter Summary ---
Author Organization Formerly [facility] [place] [address] Care Team Providers Care Dewaterer Operator Name Role Phone Urbano Denis DO Primary Care Provider Reason for Visit * Auth/Cert - Closed Specialty Diagnoses / Procedures Referred By Humberto t Referred To Contact Diagnoses ESRD ESRD Procedures AV FISTULA CREATION, DIRECT HEMODIALYSIS, ANY SITE, EG ASHWINI FISTULA UPPER EXTREMITY AV FISTULA CREATION, DIRECT HEMODIALYSIS, ANY SITE, EG ASHWINI FISTULA UPPER EXTREMITY Referral ID Status Reason Start Date Expiration Date Visits Re quested Visits Authorized [id number] Closed 1 1 Encounter Details Date Type Department Care Team (Late st Contact Info) Description 05/09/2015 12:58 PM EST - 05/09/2015 3:35 PM EST Surgery [place] [id number] Jennifer Amaro MD [facility] [place] [address] AV FISTULA CREATION, DIRECT HEMODIALYSIS, ANY SITE, EG ASHWINI FISTULA UPPER EXTREMITY (WRVU 11.9) Social History Tobacco Use Types Packs/Day Years Used Date Smoking Tobacco: Some Days Cigars Smokeless Tobacco: Current Comments:cigars, only someti mes Alcohol Use Standard Drinks/Week Comments No 0 (1 standard drink = 0.6 oz pur e alcohol) Sex and Gender Information Value Date Recorded Sex Assigned at Not on file Gender Identity Not on file Sexual Orientation Not on file documented as of this encounter Last Filed Vital Signs Vital Sign Reading Time Taken Comments Blood Pressure 158/84 05/09/2015 1:41 PM EST Pulse 61 05/09/2015 1:41 PM EST Temperature 37 ??C (98.6 ??F) 05/09/2015 1:41 PM EST Respiratory Rate 18 05/09/2015 1:41 PM EST Oxygen Saturation 98% 05/09/2015 1:41 PM EST Inhaled Oxygen Concentration - - Weight 98.3 kg (216 lb 11.4 oz) 05/09/2015 1:50 PM EST Height 172.7 cm (5' 8) 05/09/2015 1:50 PM EST Body Mass Index 32.95 05/09/2015 1:50 PM EST documented in this encounter Discharge Instructions * Discharge Instructions* Ina Tomlin RN - 05/09/2015 4:16 PM EST POST ANESTHESIA INSTRUCTIONS Go home, rest, use caution on stairs. Change positions slowly. Do not smoke if you are alone. Diet light to regular as tolerated today. If nausea occurs start with clear liquids and progress slowly. No driving, operating machinery, alcoholic beverages and no important decisions for 24 hours. Monitor IV site for signs and symptoms of infection: increasing redness, swelling, foul drainage, if occurs contact M.D. Patients who have had endotrachial tubes (this tube, used by anesthesia department, is passed down your throat after you are asleep, to ensure safe air passage during your operation). A sore throat is normal due to the tube. Cold liquids or soothing lozenges will help ease the discomfort. The generalized muscle aches are due to the medication given to you just before the tube is inserted. As the medication wears off, you may develop muscle soreness, which usually goes away in 12-24 hours. * Patient Instructions* Kendrick Del Castillo - 05/09/2015 4:06 PM EST Flow Checks: Feel your fistula 2-3 times per day and make sure that you feel blood flowing through the vein. If there is no flow, please call immediately. Please also call immediately if your hand is cool, blue, or you are unable to feel it. Call your doctor for: ?? fevers greater than 101.3 ?? severe nausea or vomiting ?? increasing pain not controlled by pain medications ?? increasing redness or drainage from incisions ?? decreased urine output ?? if you stop passing gas or stop having bowel movements ?? any other new or concerning symptoms The number for questions is [phone] before 5 PM weekdays and [phone] after 5 PM and on weekends (ask for the General Surgery resident control specialist). Activity level: Do not lift more than 10 lbs for 2-3 weeks. Medication: It is okay to resume your plavix 48 hrs after your surgery. However if there is any bleeding, discoloration at the incision site, or swelling, please call the office to confirm if you should restart plavix. Diet: You may resume your regular diet. Driving: No driving if you are taking narcotic pain medications (wait at least 6-8 hours since last dose). No driving if you are still sore from surgery as it may limit your ability to react quickly. Shower/Bath & Wound Care: It is ok to get incision wet after 24 hours. Do not scrub the incisions vigorously for the next 2-3weeks. Do not soak the incision(s) (i.e. soaking in bath or swimming) until told you may do so by adoctor, as this may promote a wound infection. After your shower, gently pat the incisions dry witha towel, and leave them open to the air. Allow the skin glue to fall off slowly over time. documented in this encounter Medications at Time of Discharge Medication Sig Dispensed Refills Start Date End Date clopidogrel (PLAVIX) 75 mg Tablet Take 1 [...] as of this encounter Progress Notes * Kendrick Del Castillo - 05/09/2015 5:20 PM EST Okay to discharge pt from same day. Unable to place discharge order secondary to eDH issue. Thanks Kendrick Del Castillo MD General Surgery, PGY2 P# [id number] documented in this encounter H&P Notes * Kendrick Del Castillo - 05/09/2015 11:58 AM EST H&P 24hr interval update: HPI: Mr. Cody Bolden is a 64 y.o. gentleman w/ hx of ESRD secondary to type II DM/HTN, also has hx of hep C w/o cirrhosis, and stroke who is currently under evluation for renal transplant. Pt has been dependent on hemodialysis since 01/2015 and his current access is via a tunneled HD catheter. Pt has been seen and evaluated in clinic by Dr. Amaro for consideration of an AV fistula. He presents today for this planned fistula. Pt has stopped his Plavix more than 7 days ago. He denies anychanges in his health since being seen in clinic. Denies fevers, chills, cough, cold or flu like symptoms. Physical Exam: There were no vitals filed for this visit. Physical Exam: General: NAD, resting comfortably in bed HEENT: NCAT, EOMI CVS: Regular rate Pulm: nonlabored breathing on room air, normal effort Abd: soft, nontender, nondistended Skin: warm, dry Ext: no cyanosis, cap refill <2sec Neuro: grossly intact, nonfocal A/P: Mr. Cody Bolden is a 64 y.o. gentleman with ESRD who is HD dependent. He presents today for a planned AV fistula. We have discussed the procedure as well as the risks associated with the procedure. He understands and has signed a consent and would like to proceed as planned. Kendrick Del Castillo MD General Surgery, PGY2 Associated attestation - Jennifer Amaro MD - 05/09/2015 4:20 PM EST I have seen the patient and reviewed the resident's above history and I agree with the details as written. The assessment and plan were formulated in discussion with me and I agree with them as documented. Mr. Bolden is a candidate for a left upper extremity brachiocephalic av fistula. He stopped his Plavix over one week ago. We discussed the procedure in detail and he understood the risks, includingthe risks of steal syndrome and heart failure. He provided informed consent. He has had no change in health since I last saw him in clinic. Proceed to the OR for his planned operation. documented in this encounter Miscellaneous Notes * Op Note - Jennifer Amaro MD - 05/09/2015 4:01 PM EST [facility] Operative Note Patient Name: Cody Bolden : [id number] MR#: [id number] Case Date: 05/09/2015 Surgeon: Surgeon(s) and Role: * Jennifer Amaro MD - Primary * Kendrick Del Castillo MD - Resident-Surgeon Tom Preoperative diagnosis: ESRD Postoperative diagnosis: ESRD Procedure(s): AV FISTULA CREATION, DIRECT HEMODIALYSIS, ANY SITE, EG ASHWINI FISTULA UPPER EXTREMITY Anesthesia: MAC Estimated Blood Loss: * No values recorded between 05/09/2015 2:36 PM and 05/09/2015 4:00 PM * Specimens removed during surgery: None Drains: Surgical Closure: Primary Closure - closure of ALL tissue levels during the original surgery regardless of wires, wickes, drains, or other devices extruding through the incision Disposition: aroused from sedation, and taken to the recovery room in a stable condition Condition: doing well without problems (Please see the Surgical Encounter Summary for any Implant and Specimen details pertinent to this patient.) HPI/Surgical Indications: Mr. Bolden is a 64-yo male with a history of CKD who is in need of dialysis access. He was worked up and found to be a candidate for a left upper extremity brachiocephalicav fistula. We discussed the procedure in detail and he understood the risks. This included a discussion of the risks of steal syndrome and heart failure. He provided informed consent for the operatio n. We confirmed that he stopped his Plavix one week ago. He was taken to the OR today for his procedure. Procedure Description: Mr. Bolden was transported to the OR and placed in a supine position on the OR table. He received light IV sedation and his left arm was placed in an outstretched position maria alejandra padded arm board where it was sterilely prepped and draped. We performed a timeout during which time we confirmed that the patient received Ancef 2 g IV x 1 within 30 minutes prior to the incision. We began by injecting a CC:CC mixture of 1% lidocaine : 0.5% marcaine in the subcutaneous tissues at the left antecubital fossa and then made a transverse incision just above the antecubital crease. We dissected through the subcutaneous tissues and identified a large cephalic vein that was mobilized proximally and distally to prepare it for anastomosis. It was more than adequate in size for a fistula. We divided a few sidebranches during this dissection, two of which were larger veins and were divided between 3-0 silk stick ties. We then turned our attention to the artery. He had a palpable left brachial artery pulse. We sharply opened the bicipital aponeurosis over the pulse and identified the brachial artery beneath. It was a large artery. We mobilized the artery circumferentially into the wound in order to prepare it for anastomosis. We then dosed with 3000 U IV heparin and waited for three minutes. We occluded the artery with two vessel loops. The vein was divided as distally as possible in the wound. The distal stump of the vein was ligated with a 3-0 silk stick tie. The proximal end was flushed with heparinized saline. It flushed very easily and distended well. There was no evidence of leak from the vein wall. We occluded the vein with a small bulldog vascular clamp. We then made an anterior arteriotomy with an 11 blade and extended this to approximately 8mm with fine Guevara scissors. The medial wall was trimmed to expand the arteriotomy in the medial-lateral dimension.We irrigated the lumen of the artery with heparinized saline. We then performed an end-to-side anastomosis between the cephalic vein and the brachial artery with running 7-0 Prolene suture. At the end of the anastomosis, we released the clamps and the vein immediately filled with blood and developed a thrill. There was no evidence of bleeding from the anastomosis or the vein wall. We performed a doppler exam and were able to demonstrate a strong, low resistance signal in the cephalic vein and strong triphasic signals in the brachial artery distal to the anastomosis as well as in the radial and ulnar arteries at the level of the wrist. We copiously irrigated the incision site and cauterized several areas of oozing in the subcutaneous tissues. We inspected the anastomosis and vein wall again and found no evidence of bleeding. We placed Floseal in the base of the wound and then reapproximated the subcutaneous tissues with interrupted 3-0 Vicryl sutures. The skin was closed with running 4-0 Monocryl. The incision site was covered with Dermabond glue. We repeated the doppler study at the end of the procedure and the patient maintained strong signalsin the radial and ulnar arteries at the level of the wrist. He had a strong palpable thrill in the cephalic vein at the end of the operation. The patient tolerated the procedure well and there were no complications. He emerged from sedation without difficulty and was transferred to the recovery room in good condition. All counts were correct at the end of the procedure. Infection Bundle used? No Attestation: Case Date: 05/09/2015 I was present and I participated during the entire procedure (does not need to include opening and closing). JENNIFER AMARO MD 05/09/2015 documented in this encounter Plan of Treatment Upcoming Encounters Date Type Department Care Team (Late st Contact Info) Description 04/15/2024 10:00 AM EDT Hospital Encounter Non-Invasive [place] [address] Arrived documented as of this encounter Procedures Procedure Name Priority Date/Time Associated Diagnosis Comments AV FISTULA CREATION, DIRECT HEMODIALYSIS, ANY SITE, EG ASHWINI FISTULA UPPER EXTREMITY (WRVU 11.9) Yes 05/09/2015 2:06 PM EST ESRD POCT GLUCOSE Routine 05/09/2015 1:30 PM EST POTASSIUM STAT 05/09/2015 12:45 PM EST CKD (chronic kidney disease), unspecified stage documented in this encounter Results * POCT Glucose (05/09/2015 1:30 PM EST) Glucose, POC 98 65 - 199 mg/dL [facility] Comment: Supplemental ranges: <140 mg/dL before meals <180 mg/dL all other times of the day Blood specimen (specimen) 05/09/2015 1:30 PM EST 05/09/2015 1:30 PM EST Jennifer Amaro MD POINT OF CARE TEST ORDERABLES Performing Organization Address City/State/[place] Phone Number [facility] * Potassium (05/09/2015 12:45 PM EST) Potassium 4.2 3.5 - 5.0 mmol/L [facility] Comment: Please note: ??Patients with WBC >100,000 may have falsely elevated Potassium levels. ??For accurate Potassium quantification in these patients send serum separator tube (gold top) for subsequent determinations. ??Contact the Clinical Chemistry Laboratory if there are any questions. Blood specimen (specimen) 05/09/2015 12:45 PM EST 05/09/2015 12:49 PM EST Narrative Resulting Agency Comment Spec In Lab Jennifer Amaro MD CHEMISTRY [facility] documented in this encounter Visit Diagnoses Not on filedocumented in this encounter Administered Medications Inactive Administered Medications - up to 3 most recent administrations Medication Order MAR Action Action Date Dose Rate Site BUpivacaine (PF) (MARCAINE) 0.5 % (5 mg/mL) injection ONCE PRN, Starting on Thu05/09/15 at 1606, Until Thu05/15/15 at 1159, Intra-Operative (Intra-Procedure), Routine Given 05/09/2015 4:06 PM EST 5 mLs lidocaine (XYLOCAINE) 10 mg/mL (1 %) injection 3 mg 3 mg (0.3 mL), Subcutaneous, ONCE PRN, 1 dose, Starting on Thu05/09/15 at 1319, Until Thu05/09/15 at 1607, for discomfort with PIV insertion, Day of Surgery (Day of Procedure), Routine Given 05/09/2015 4:07 PM EST 5 mLs Left Arm oxyCODONE (ROXICODONE) immediate release tablet 5 mg 5 mg, Oral, EVERY 4 HOURS PRN, Starting on Thu05/09/15 at 1606, Until Thu05/15/15 at 1159, Pain, Routine Given 05/09/2015 4:35 PM EST 5 mg documented in this encounter Active and Recently Administered Medications Times are shown in EST. Scheduled Medication Order 05/07/2015 05/08/2015 05/09/2015 ceFAZolin (ANCEF) 2g in dextrose 5% 50 mL (CANCELED) 2 g, Intravenous, EVERY 8 HOURS, First dose on Thu05/09/15 at 1400, Until Discontinued, Administer over 30 Minutes, Indication for (Active or Suspected): Prophylaxis 1400 (Due)1435 (Give n - Provider: Tal Owens CRNA)2200 (Due) Continuous Medication Order 05/07/2015 05/08/2015 05/09/2015 sodium chloride 0.9% infusion () 1,000 mL, at 100 mL/hr, Intravenous, CONTINUOUS, Starting on Thu05/09/15 at 1345, Until Laura 05/10/15 at 1344, Day of Surgery (Day of Procedure) 1404 (New Bag - Prov ider: Tal Owens CRNA)1547 (Anesthesia Volume Adjustment - Provider: Tal Owens CRNA) PRN Medication Order 05/07/2015 05/08/2015 05/09/2015 BUpivacaine (PF) (MARCAINE) 0.5 % (5 mg/mL) injection (CANCELED) ONCE PRN, Starting on Thu05/09/15 at 1606, Until Thu05/15/15 at 1159, Intra-Operative (Intra-Procedure), Routine 1606 (Given - Provid er: Jennifer Amaro MD) lidocaine (XYLOCAINE) 10 mg/mL (1 %) injection 3 mg (COMPLETED) 3 mg (0.3 mL), Subcutaneous, ONCE PRN, 1 dose, Starting on Thu05/09/15 at 1319, Until Thu05/09/15 at 1607, for discomfort with PIV insertion, Day of Surgery (Day of Procedure), Routine 1607 (Given - Provid er: Jennifer Amaro MD) oxyCODONE (ROXICODONE) immediate release tablet 5 mg 5 mg, Oral, EVERY 4 HOURS PRN, Starting on Thu05/09/15 at 1606, Until Thu05/15/15 at 1159, Pain, Routine 1635 (Given - Provid er: Ina Tomlin RN) documented in this encounter Care Teams Dewaterer Operator Relationship Specialty Start Date End Date Urbano Denis DO [address] [place] [address] PCP - General 09/03/12 03/17/22 documented as of this encounter
--- OUTSIDE RECORDS SUMMARY | 2024-02-14 11:38 | XMS_ITS | Encounter Summary ---
Author Organization [facility] [place] [address] Care Team Providers Care [place] [place] Manager Name Role Phone Urbano Denis DO Primary Care Provider Encounter Details Date Type Department Care Team (Late st Contact Info) Description 06/07/2014 8:30 AM EST Ancillary Appointment [place] [address] Mac Hurley, RVT Hypertension; Proteinuria; DM type 2 (diabetes mellitus, type 2); CKD (chronic kidney disease) stage 3, GFR 30-59 ml/min Social History Tobacco Use Types Packs/Day Years [...] AM EDT Hospital Encounter [place] [address] Arrived documented as of this encounter Procedures Procedure Name Priority Date/Time Associated Diagnosis Comments RENAL DUPLEX COMPLETE Routine 06/07/2014 8:27 AM EST Hypertension Proteinuria DM type 2 (diabetes mellitus, type 2) CKD (chronic kidney disease) stage 3, GFR 30-59 ml/min documented in this encounter Results * Duplex Study Renal Arteries, Bilat (06/07/2014 8:27 AM EST) VB Text Report Department: Vascular Surgery Lab Patient: [id number] (ETHEL AKINS) CPT Code: 66089 ICD-9: 401.9; 272.0 Referring Physician: URBANO LOYA Indication: ??h/o DM and HTN now with increasing creatine; ? [place] ICD9 Diagnosis Code: 401.9 Increased Creatinine [272.0]. Findings: Infra Renal Aorta ? PSV (cm/s): 64 ? EDV (cm/s): 0 Renal Artery Proximal, Right ? PSV (cm/s): 49 ? EDV (cm/s): 8 ? RI: 0.83 Renal Artery Mid, Right ? PSV (cm/s): 54 ? EDV (cm/s): 12 ? RI: 0.77 Renal Artery Distal, Right ? PSV (cm/s): 39 ? EDV (cm/s): 8 ? RI: 0.80 Mid Pole Renal Parenchyma, Right ? PSV (cm/s): 14 ? EDV (cm/s): 5 ? RI: 0.64 Lower Pole Renal Parenchyma, Right ? PSV (cm/s): 13 ? EDV (cm/s): 5 ? RI: 0.64 Renal [place], Right ? AT (ms): 22 Kidney Length, Right ? Length (cm): 12.2 Renal, Right ? Patent: Patent Renal Artery Proximal, Left ? PSV (cm/s): 53 ? EDV (cm/s): 9 ? RI: 0.82 Renal Artery Mid, Left ? PSV (cm/s): 31 ? EDV (cm/s): 7 ? RI: 0.77 Renal Artery Distal, Left ? PSV (cm/s): 30 ? EDV (cm/s): 8 ? RI: 0.73 Mid Pole Renal Parenchyma, Left ? PSV (cm/s): 15 ? EDV (cm/s): 6 ? RI: 0.63 Lower Pole Renal Parenchyma, Left ? PSV (cm/s): 22 ? EDV (cm/s): 6 ? RI: 0.71 Renal Hilum, Left ? AT (ms): 27 Kidney Length, Left ? Length (cm): 12.1 Renal, Left ? Patent: Patent Interpretation: Right: Patent main renal artery with no evidence of hemodynamically significant stenosis. Low peak systolic velocities throughout the renal artery (54 cm/s-39 cm/s). Left: Patent main renal artery with no evidence of hemodynamically significant stenosis. Low peak systolic velocities throughout the renal artery (53 cm/s-30 cm/s). Mid segment of renal artery was poorly visualized. Technical note: Unable to visualize proximal aorta due to stomach gas. Renal/aorta ratio not valid due to aorta velocity taken in the infra renal segment. Comparison: ??No previous study in our vascular lab database for comparison. Electronically Signed by: JUNG GARCIA on 2014-06-09 08:25:30 AM [facility] VB Text Report End of Report [facility] 06/07/2014 8:27 AM EST Urbano Loya MD VASCULAR ORDERABLES [facility] documented in this encounter Visit Diagnoses Diagnosis Hypertension Unspecified essential hypertension Proteinuria DM type 2 (diabetes mellitus, type 2) Type II or unspecified type diabetes mellitus without mention of complication, not stated as uncontrolled CKD (chronic kidney disease) stage 3, GFR 30-59 ml/min Chronic kidney disease, Stage III (moderate) documented in this encounter Care Teams [place] Manager Relationship Specialty Start Date End Date Urbano Denis DO [address] [place] [address] PCP - General 09/03/12 03/17/22 documented as of this encounter
--- OUTSIDE RECORDS SUMMARY | 2024-02-14 11:38 | XMS_ITS | Encounter Summary ---
Author Organization On License Of [facility] Address [facility] [place] [address] Care Team Providers Care Community Development Specialist Name Role Phone Urbano Denis DO Primary Care Provider Encounter Details Date Type Department Care Team (Latest Contact Info) Description 06/07/2014 9:31 AM EST - 06/07/2014 11:59 PM [facility] Hospital Encounter [place] [address] CLINIC, Urbano Milian MD [facility] [place] [address] Hypertension; Proteinuria; DM type 2 (diabetes mellitus, type 2); CKD (chronic kidney disease) stage 3, GFR 30-59 ml/min Discharge Disposition: Home Social History Tobacco Use Types Packs/Day Years Used Date Smoking Tobacco: Former Sex and Gender Information Value Date Recorded Sex Assigned at Not on file Gender Identity Not on file Sexual Orientation Not on file documented as of this encounter Medications at Time of Discharge Medication Sig Dispensed Refills Start Date End Date clopidogrel (PLAVIX) 75 mg Tablet Take 75 mg by mouth daily. 01/04/2015 labetalol (NORMODYNE) 100 mg Tablet Take 50 mg by mouth 2 times daily. 01/04/2015 ONE TOUCH ULTRA TEST Strip 0 04/28/2014 01/28/2016 ONE TOUCH ULTRAMINI Kit 0 04/28/201401/04 chlorhexidine (PERIDEX) 0.12 % Mouthwash 0 01/08/2014 03/16/2015 FLUZONE QUAD [id number], PF, 60 mcg (15 mcg x 4)/0.5 mL Syringe 0 04/07/2014 01/04/2015 ONE TOUCH DELHENRIK LANCETS 30 gauge Misc 0 04/28/2014 01/28/2016 doxazosin (CARDURA) 4 mg Tablet Take 1 tablet by mouth nightly. 90 tablet 3 05/22/2014 10/05/2015 omeprazole (PRILOSEC) 20 mg capsule Take 20 mg by mouth daily. 09/20/2015 potassium & sodium phosphates (NEUTRA-PHOS) 280-160-250 mg PwPk Take 99 g by mouth daily. 01/04/2015 magnesium oxide (MAG-OX) 400 mg tablet Take 500 mg by mouth daily. 01/04/2015 amlodipine (NORVASC) 10 mg tablet 08/08/2005 01/24/2015 losartan-hydrochlorothia zide (HYZAAR) 100-25 mg per tablet 08/08/2005 01/04/2015 documented as of this encounter Plan of Treatment Upcoming Encounters Date Type Department Care Team (Late st Contact Info) Description 04/15/2024 10:00 AM EDT Hospital Encounter Non-Invasive [place] [address] Arrived documented as of this encounter Procedures Procedure Name Priority Date/Time Associated Diagnosis Comments US RETROPERITONEAL COMPLETE Routine 06/07/2014 10:23 AM EST Hypertension Proteinuria DM type 2 (diabetes mellitus, type 2) CKD (chronic kidney disease) stage 3, GFR 30-59 ml/min documented in this encounter Results * US retroperitoneal complete (06/07/2014 10:23 AM EST) Anatomical Region Laterality Modality Abdomen Ultrasound 06/07/2014 10:2 3 AM EST Narrative 06/07/2014 10:30 AM EST Renal ?(Signed Final 06/07/2014 10:29 ? am) Patient Info ID #: ? [id number] ?: [birth year] (63 yrs) Name: ? ETHEL Patricia AKINS ?Visit Date: 06/07/2014 10:10 am Performed By Performed By: ?Isrrael MCGRATH, ??Nuris Attending: ? Alec GERBER, Guy Vargas Referred By: ? URBANO LOYA MD Service(s) Provided ??URETRO - Retroperitoneal Complete - [id number] ? [id number] Indications ??63 year old male with DM, rising Cr. R/o obstruction Right Kidney Size (cm) ?L: ??11.0 Cortical Thickness: ?Normal Cortical Echogenicity: ?? Normal Hydronephrosis: ?No sonographic evidence Comment: ?2 small cysts measuring 1.6 cm upper pole with ? small calcification on the posterior aspect, 0.8 cm ? mid-inferior pole Left Kidney Size (cm) ?L: ??12.3 Cortical Thickness: ?Normal Cortical Echogenicity: ?? Normal Hydronephrosis: ?No sonographic evidence Comment: ?4.2 cm exophytic cyst inferior pole and 0.8 cm ? inferior pole cyst Urinary Bladder Comment: ?Distended bladder with echogenic ? material/sediment Impression Ultrasound - ??Retroperitoneal Complete - Summary Stable bilateral renal cysts. No stones or obstruction. Sediment in bladder. Incidental finding of gallstones. I ??viewed the images and agree with the above interpretation. ??12 ? Guy Michael MD Electronically Signed Final Report ?? 06/07/2014 10:29 am Procedure Note Guy Michael MD - 06/07/2014 Renal (Signed Final 06/07/2014 10:29 am) Patient Info ID #: [id number] : [birth year] (63 yrs) Name: ETHEL AKINS Visit Date: 06/07/2014 10:10 am Performed By Performed By: Nuris Arcos RDMS Attending: Guy Michael MD Referred By: URBANO LOYA MD Service(s) Provided URETRO - Retroperitoneal Complete - [id number] Indications 63 year old male with DM, rising Cr. R/o obstruction Right Kidney Size (cm) L: 11.0 Cortical Thickness: Normal Cortical Echogenicity: Normal Hydronephrosis: No sonographic evidence Comment: 2 small cysts measuring 1.6 cm upper pole with small calcification on the posterior aspect, 0.8 cm mid-inferior pole Left Kidney Size (cm) L: 12.3 Cortical Thickness: Normal Cortical Echogenicity: Normal Hydronephrosis: No sonographic evidence Comment: 4.2 cm exophytic cyst inferior pole and 0.8 cm inferior pole cyst Urinary Bladder Comment: Distended bladder with echogenic material/sediment Impression Ultrasound - Retroperitoneal Complete - Summary Stable bilateral renal cysts. No stones or obstruction. Sediment in bladder. Incidental finding of gallstones. I viewed the images and agree with the above interpretation. 12 Guy Michael MD Electronically Signed Final Report 06/07/2014 10:29 am Urbano Loya MD IMG US GEN ORDERABLE S documented in this encounter Visit Diagnoses Diagnosis Hypertension Unspecified essential hypertension Proteinuria DM type 2 (diabetes mellitus, type 2) Type II or unspecified type diabetes mellitus without mention of complication, not stated as uncontrolled CKD (chronic kidney disease) stage 3, GFR 30-59 ml/min Chronic kidney disease, Stage III (moderate) documented in this encounter Care Teams Community Development Specialist Relationship Specialty Start Date End Date Urbano Denis DO [address] [place] [address] PCP - General 09/03/12 03/17/22 documented as of this encounter
--- OUTSIDE RECORDS SUMMARY | 2024-02-14 11:38 | XMS_ITS | Encounter Summary ---
Author Organization [facility] [place] [address] Care Team Providers Care Legal Associate Name Role Phone Albania Denis DO Primary Care Provider Encounter Details Date Type Department Care Team (Late st Contact Info) Description 05/22/2014 11:00 AM EST Follow-Up Neph[place] [address] Albania Schmid MD [facility] [place] [place] [address] CKD (chronic kidney disease) stage 3, GFR [...] Sign Reading Time Taken Comments Blood Pressure 128/82 05/22/2014 10:41 AM EST Pulse 56 05/22/2014 10:41 AM EST Temperature - - Respiratory Rate - - Oxygen Saturation - - Inhaled Oxygen Concentration - - Weight 106.1 kg (234 lb) 05/22/2014 10:41 AM EST Height 180.3 cm (5' 11) 05/22/2014 10:41 AM EST Body Mass Index 32.64 05/22/2014 10:41 AM EST documented in this encounter Progress Notes * Albania Schmid MD - 05/22/2014 11:29 AM EST Nephrology/Hypertension Clinic Follow-up Note [id number] ID: 63 y.o.year-old male for follow up of CKD. Past Medical History: 1. Type 2 DM 2. Hypertension 3. Microhematuria 4. H/o colon polyp 5. D/p rotator cuff repair 6. GERD 7. S/p right knee surgery 8. CKD - felt secondary to diabetic nephropathy 9. BPH 10. H/o CVA Outpatient Encounter Prescriptions as of 05/22/2014 Medication Sig Dispense Refill ??? clopidogrel (PLAVIX) 75 mg Tablet Take 75 mg by mouth daily. ??? labetalol (NORMODYNE) 100 mg Tablet Take 50 mg by mouth 2 times daily. ??? [DISCONTINUED] doxazosin (CARDURA) 2 mg tablet Take 2 tablets by mouth nightly. 180 tablet 2 ??? omeprazole (PRILOSEC) 20 mg capsule Take 40 mg by mouth daily. ? ? potassium & sodium phosphates (NEUTRA-PHOS) 280-160-250 mg PwPk Take 99 g by mouth daily. ??? magnesium oxide (MAG-OX) 400 mg tablet Take 500 mg by mouth daily. ??? amlodipine (NORVASC) 10 mg tablet ??? losartan-hydrochlorothiazide (HYZAAR) 100-25 mg per tablet ??? ONE TOUCH ULTRA TEST Strip 0 ??? ONE TOUCH ULTRAMINI Kit 0 ??? chlorhexidine (PERIDEX) 0.12 % Mouthwash 0 ??? FLUZONE QUAD [id number], PF, 60 mcg (15 mcg x 4)/0.5 mL Syringe 0 ??? ONE TOUCH DELICA LANCETS 30 gauge Misc 0 ??? doxazosin (CARDURA) 4 mg Tablet Take 1 tablet by mouth nightly. 90 tablet 3 ??? [DISCONTINUED] doxazosin (CARDURA) 4 mg Tablet 0 ??? [DISCONTINUED] metFORMIN (GLUCOPHAGE) 500 mg tablet Take 500 mg by mouth 2 times daily (with meals). No facility-administered encounter medications on file as of 05/22/2014. No Known Allergies S: Seen in f/u of CKD. He developed right sided numbness and pain last month, involving his right leg and distal right arm. He was diagnosed with a CVA. Cr has also been rising and Dr. Denis stoppedhis metformin. He has made some major dietary modifications and his diabetes is now well controlledwith diet changes alone. O: Filed Vitals: 05/22/14 1041 BP: 128/82 Pulse: 56 Height: 180.3 cm (5' 11) Weight: 106.142 kg (234 lb) General: WDWN male NAD Eye: Conjunctivae clear ENT: No external lesions Neck: S/NT CV: S1S2, reg, no m/g/r Resp: CTA Abd: S/NT Ext: tr edema Skin: Warm/dry Neuro: ORTIZ well, EOMI, speech intact Psych: A&O, affect appropriate Labs: Recent Results (from the past 72 hour(s)) BASIC METABOLIC PANEL (NON-FASTING) Result Value Range Glucose Lvl 124 60 - 199 mg/dL BUN 48 (*) 10 - 20 mg/dL Creatinine 3.19 (*) 0.80 - 1.50 mg/dL Sodium 144 135 - 145 mmol/L Potassium 3.6 3.5 - 5.0 mmol/L Chloride 103 98 - 107 mmol/L CO2 28 22 - 31 mmol/L Anion Gap 13 5 - 15 mmol/L Calcium 9.0 8.5 - 10.5 mg/dL Estimated GFR 20 (*) >=60 PTH Result Value Range PTH 153 (*) 15 - 65 pg/mL ALBUMIN LEVEL Result Value Range Albumin 3.5 3.2 - 5.2 gm/dL PHOSPHORUS Result Value Range Phosphorus 3.7 2.5 - 4.5 mg/dL HEMOGLOBIN A1C Result Value Range Hemoglobin A1C 5.6 <=5.6 % Est Avg Gluc 114 CHOLESTEROL, TOTAL Result Value Range Chol, Total 166 <=199 mg/dL HEMOGRAM Result Value Range WBC 7.1 4.0 - 10.0 x10(3)/mcL RBC 4.57 (*) 4.63 - 6.08 x10(6)/mcL Hemoglobin 13.8 13.7 - 17.5 gm/dL Hematocrit 39.3 (*) 40.0 - 51.0 % MCV 86.0 79.0 - 92.0 fL MCH 30.2 25.6 - 32.2 pg MCHC 35.1 32.0 - 36.5 gm/dL Platelets 285 145 - 370 x10(3)/mcL RDWSD 40.6 35.0 - 46.0 fL RDWCV 13.0 10.9 - 14.4 % MPV 10.1 9.0 - 12.0 fL DIFFERENTIAL, AUTOMATED Result Value Range Neutrophils % 70.1 Neutr Abs (ANC) 4.97 1.50 - 6.30 x10(3)/mcL Lymphocytes % 20.2 Lymphocytes Abs 1.4 1.0 - 3.6 x10(3)/mcL Monocytes % 5.5 Monocyte Abs 0.4 0.2 - 1.0 x10(3)/mcL Eosinophils % 3.5 Eosinophils Abs 0.2 0.0 - 0.5 x10(3)/mcL Basophils % 0.6 Basophils Abs 0.0 0.0 - 0.2 x10(3)/mcL Immature Gran % 0.10 Ayesha Gran Abs 0.01 0.00 - 0.05 x10(3)/mcL URINALYSIS WITHOUT MICROSCOPIC Result Value Range Glucose UA Negative Negative mg/dL Protein UA >=500 (*) Negative mg/dL Bilirubin UA Negative Negative mg/dL Urobilinogen UA Normal Normal mg/dL pH UA 5.0 5.0 - 8.0 Blood UA Negative Negative mg/dL Ketones UA Negative Negative mg/dL Nitrite UA Negative Negative Leukocytes UA Negative Negative mcL Appearance UA Hazy (*) Clear Spec Irving UA 1.015 1.002 - 1.030 Color UA Yellow Yellow PROTEIN/CREATININE RATIO, URINE Result Value Range U Creatinine 191 U Protein Ran 570 (*) 0 - 12 mg/dL Prot/Cre Ratio 3.0 A/P: 1. Renal: stage 4 CKD. Cr has been rising over the past year without clear explanation. Despite good glycemic control, progressive diabetic and hypertensive nephropathy are still statistically the most likely culprits, but should rule out obstruction, renovascular disease and paraproteins. Omeprazole can be associated with AIN as well. He has significant proteinuria without jared nephrotic syndrome. PTH is borderline elevated for his GFR. - check renal US, renal duplex, SPEP/UPEP - consider holding PPI for now - avoid nephrotoxins, including NSAIDS - if renal function continues to deteriorate, will plan for renal biopsy to r/o other causes, including AIN. CC: ALBANIA MAYRA, DO [email or web address] Tr edema Check renal duplex, us Metformin stopped documented in this encounter Plan of Treatment Upcoming Encounters Date Type Department Care Team (Late st Contact Info) Description 04/15/2024 10:00 AM EDT Hospital Encounter Non-Invasive [place] [address] Arrived documented as of this encounter Procedures Procedure Name Priority Date/Time Associated Diagnosis Comments PROTEIN/CREATININE RATIO, URINE Routine 05/22/2014 10:16 AM EST Hypertension Proteinuria DM type 2 (diabetes mellitus, type 2) CKD (chronic kidney disease) stage 3, GFR 30-59 ml/min Hyperparathyroidism URINALYSIS DIPSTICK Routine 05/22/2014 1 0:16 AM EST Hypertension Proteinuria DM type 2 (diabetes mellitus, type 2) CKD (chronic kidney disease) stage 3, GFR 30-59 ml/min Hyperparathyroidism PTH Routine 05/22/2014 10:13 AM EST Hypertension Proteinuria DM type 2 (diabetes mellitus, type 2) CKD (chronic kidney disease) stage 3, GFR 30-59 ml/min Hyperparathyroidism HEMOGRAM Routine 05/22/2014 10:13 AM EST Hypertension Proteinuria DM type 2 (diabetes mellitus, type 2) CKD (chronic kidney disease) stage 3, GFR 30-59 ml/min Hyperparathyroidism DIFFERENTIAL, AUTOMATED Routine 05/22/2014 10:13 AM EST Hypertension Proteinuria DM type 2 (diabetes mellitus, type 2) CKD (chronic kidney disease) stage 3, GFR 30-59 ml/min Hyperparathyroidism CBC (WITH DIFF) Routine 05/22/2014 10:13 AM EST Hypertension Proteinuria DM type 2 (diabetes mellitus, type 2) CKD (chronic kidney disease) stage 3, GFR 30-59 ml/min Hyperparathyroidism PHOSPHORUS Routine 05/22/2014 10:13 AM EST Hypertension Proteinuria DM type 2 (diabetes mellitus, type 2) CKD (chronic kidney disease) stage 3, GFR 30-59 ml/min Hyperparathyroidism HEMOGLOBIN A1C Routine 05/22/2014 10:13 AM EST Hypertension Proteinuria DM type 2 (diabetes mellitus, type 2) CKD (chronic kidney disease) stage 3, GFR 30-59 ml/min Hyperparathyroidism CHOLESTEROL, TOTAL Routine 05/22/2014 10 :13 AM EST Hypertension H/O hematuria Proteinuria DM type 2 (diabetes mellitus, type 2) CKD (chronic kidney disease) stage 3, GFR 30-59 ml/min Hyperparathyroidism ALBUMIN LEVEL Routine 05/22/2014 10:13 AM EST Hypertension Proteinuria DM type 2 (diabetes mellitus, type 2) CKD (chronic kidney disease) stage 3, GFR 30-59 ml/min Hyperparathyroidism BASIC METABOLIC PANEL Routine 05/22/2014 10:13 AM EST Hypertension Proteinuria DM type 2 (diabetes mellitus, type 2) CKD (chronic kidney disease) stage 3, GFR 30-59 ml/min Hyperparathyroidism documented in this encounter Results * (ABNORMAL) [...] Resulting Agency Comment Spec In Lab [place]ia Schmid MD URINE ORDERABLES CERNER [employer] * (ABNORMAL) Protein/Creatinine Ratio, urine (07/11/2014 9:43 AM EST) Creatinine, Urine 209 mg/dL CERNER MILLENNIUM Protein, Urine 741(H) 0 - 12 mg/dL CERNER MILLENNIUM Protein / Creatinine Ratio, Urine 3.5 ratio CERNER MILLENNIUM Urine specimen (specimen) 07/11/2014 9:43 AM EST 07/11/2014 9:47 AM EST Narrative Resulting Agency Comment Spec In Lab Albania Schmid MD URINE ORDERABLES Performing Organization Address [facility] Co de Phone Number CERROSALINA MILLENNIUM * Protein Electrophoresis, serum (07/11/2014 9:37 AM EST) Total Prot Electrophoresis 6.4 6.4 - 8.3 [...] Detected gm/dL CERNER MILLENNIUM Scan See Note CERNER MILLENNIUM Comment:Please see scanned r eport in Chart Review under the [facility] Laboratory Heading. Blood specimen (specimen) 07/11/2014 9:37 AM EST 07/11/2014 9:41 AM EST Narrative Resulting Agency Comment Spec In Lab Albania Schmid MD CHEMISTRY ORDERABLES Performing Organization Address [facility] Co de Phone Number BENEDICT DANELLEENNIUM * (ABNORMAL) Hemoglobin A1c (07/11/2014 9:37 AM EST) Hemoglobin A1c 5.9(H) <=5.6 % CERNE R MILLENNIUM Comment: Reference Range: 4.3 - 5.6% 5.7 [...] Mellitus, Diabetes Care 2013; 36: Suppl. 1, S66-58 Estimated Average Glucose 123 mg/dL [facility] Comment: eAG equivalents for HbA1c percentages: HbA1c(%) ?eAG(mg/dL) 6.0 ?126 6.5 ?140 7.0 ?154 7.5 ?169 8.0 ?183 8.5 ?197 9.0 ?212 9.5 ?226 10.0 ? 240 Limitations: The eAG calculation has not been validated on women, individuals below 18 years old and above 70 years old, and individuals with hemoglobinopathies. Additional resources are available on the ADA website: [email or web address] Harjeet MENDOSA, Chanel J, Philip R, et al. ??Translating the A1C assay into estimated average glucose values. ??Diabetes Care 2008:31(8):5857-3545. Blood specimen (specimen) 07/11/2014 9:37 AM EST 07/11/2014 9:41 AM EST Narrative Resulting Agency Comment Spec In Lab Albania Schmid MD CHEMISTRY ORDERABLES [facility] * Phosphorus (07/11/2014 9:37 AM EST) Phosphorus 3.4 2.5 - 4.5 mg/dL [facility] Blood specimen (specimen) 07/11/2014 9:37 AM EST 07/11/2014 9:41 AM EST Narrative Resulting Agency Comment Spec In Lab Albania Schmid MD CHEMISTRY ORDERABLES Performing Organization Address [facility] de Phone Number [facility] * Albumin Level (07/11/2014 9:37 AM EST) Albumin 3.7 3.2 - 5.2 gm/dL [facility] Blood specimen (specimen) 07/11/2014 9:37 AM EST 07/11/2014 9:41 AM EST Narrative Resulting Agency Comment Spec In Lab Albania Schmid MD CHEMISTRY ORDERABLES Performing Organization Address [facility] de Phone Number [facility] * (ABNORMAL) PTH (07/11/2014 9:37 AM EST) Parathyroid Hormone 164(H) 15 - 65 pg/mL [facility] Blood specimen (specimen) 07/11/2014 9:37 AM EST 07/11/2014 9:41 AM EST Narrative Resulting Agency Comment Spec In Lab Albania Schmid MD CHEMISTRY ORDERABLES Performing Organization Address [facility] de Phone Number [facility] * (ABNORMAL) Basic Metabolic Panel (non-fasting) (07/11/2014 9:37 AM EST) Glucose 111 60 - 199 mg/dL [facility] Comment:Diabetes: >=200 mg/d L plus symptoms Blood Urea Nitrogen 41(H) 10 - 20 mg/dL [facility] MILLENNIUM Creatinine 2.73(H) 0.80 - 1.50 mg/dL [facility] MILLENNIUM Comment: Please note that the pediatric reference intervals supplied above were not validated at [facility]. Results from pediatric patients should be interpreted in conjunction to the patient's age, height and muscle mass. Sodium 143 135 - 145 mmol/L [facility] Potassium 3.6 3.5 - 5.0 mmol/L [facility] Comment: Please note: ??Patients with WBC >100,000 [...] the following links into your internet browser. [email or web address] Blood specimen (specimen) 07/11/2014 9:37 AM EST 07/11/2014 9:41 AM EST Narrative Resulting Agency Comment Spec In Lab Albania Schmid MD CHEMISTRY ORDERABLES BENEDICT COKO * US retroperitoneal complete (06/07/2014 10:23 AM EST) Anatomical Region Laterality Modality Abdomen Ultrasound 06/07/2014 10:2 3 AM EST Narrative 06/07/2014 10:30 AM EST Renal ?(Signed Final 06/07/2014 10:29 ? am) Patient Info ID #: ? [id number] ?: ??[birth year] (63 yrs) Name: ? ETHEL AKINS ?Visit Date: 06/07/2014 10:10 am Performed By Performed By: ?Isrrael NOYOLACO, ??Nuris Attending: ? Alec GERBER, Guy Vargas Referred By: ? ALBANIA SCHMID MD Service(s) Provided ??URETRO - Retroperitoneal Complete - [id number] ? [id number] Indications ??63 year old male with DM, [...] 06/07/2014 10:29 am) Patient Info ID #: [id number] : [birth year] (63 yrs) Name: ETHEL AKINS Visit Date: 06/07/2014 10:10 am Performed By Performed By: Nuris Arcos RDMS Attending: Guy Michael MD Referred By: ALBANIA SCHMID MD Service(s) Provided URETRO - Retroperitoneal Complete - [id number] Indications 63 year old male with DM, [...] Electronically Signed Final Report 06/07/2014 10:29 am Albania Schmid MD IMG US GEN ORDERABLE S * Duplex Study Renal Arteries, Bilat (06/07/2014 8:27 AM EST) VB Text Report Department: Vascular Surgery Lab Patient: [id number] (ETHEL AKINS) CPT Code: 73720 ICD-9: 401.9; 272.0 Referring Physician: ALBANIA SCHMID Indication: ??h/o DM and HTN now with [...] of Report VASCUBASE 06/07/2014 8:27 AM EST Albania Schmid MD VASCULAR ORDERABLES VASCUBASE * (ABNORMAL) Protein/Creatinine Ratio, urine (05/22/2014 10:16 AM EST) Creatinine, Urine 191 mg/dL CERNER MILLENNIUM Protein, Urine 570(H) 0 - 12 mg/dL CERNER MILLENNIUM Comment:rechecked by ga Protein / Creatinine Ratio, Urine 3.0 ratio CERNER MILLENNIUM Urine specimen (specimen) 05/22/2014 10:16 AM EST 05/22/2014 10:25 AM EST Narrative Resulting Agency Comment Spec In Lab Albania Schmid MD URINE ORDERABLES CERNER MILLENNIUM * (ABNORMAL) Urinalysis without microscopic (05/22/2014 10:16 AM EST) Glucose, Urine Dipstick Negative Negative mg/dL CERNER MILLENNIUM Protein, Urine Dipstick >=500(A) Negative mg/dL CERNER MILLENNIUM Bilirubin, Urine Dipstick Negative Negative mg/dL CERNER MILLENNIUM Comment: Clinical correlation required for positive Urine Bilirubin results as false positive may occur with some drugs and drug related products. If a false positive is suspected a serum total bilirubin should be considered if clinically indicated. Urobilinogen, Urine Dipstick Normal Normal mg/dL CERNER MILLENNIUM pH, Urn (dipstick) 5.0 5.0 - 8.0 CERNER MILLENNIUM Blood, Urine Dipstick Negative Negative mg/dL CERNER MILLENNIUM Ketone, Urine Dipstick Negative Negative mg/dL CERNER MILLENNIUM Nitrite, Urine Dipstick Negative Negative CERNER MILLENNIUM Leukocytes, Urine Dipstick Negative Negative mcL CERNER MILLENNIUM Appearance, Urine Dipstick Hazy(A) Clear CERNER MILLENNIUM Specific Irving Urine Automated 1.015 1.002 - 1.030 CERNER MILLENNIUM Color, Urine Dipstick Yellow Yellow CERNER MILLENNIUM Urine specimen (specimen) URINE SPECIMEN OBTAINED BY CLEAN CATCH PROCEDURE / Unknown 05/22/2014 10:16 AM EST 05/22/2014 10:25 AM EST Narrative Resulting Agency Comment Spec In Lab [place] Schmid MD URINE ORDERABLES CERNER MILLENNIUM * Differential, Automated (05/22/2014 10:13 AM EST) Neutrophil % 70.1 % CERNER MILLENNIUM Neutrophil Absolute 4.97 1.50 - 6.30 x10(3)/mcL CERNER MILLENNIUM Lymph % 20.2 % CERNER MILLENNIUM Lymphocytes Abs 1.4 1.0 - 3.6 x10(3)/mcL CERNER MILLENNIUM Monocyte % 5.5 % CERNER MILLENNIUM Monocyte Abs 0.4 0.2 - 1.0 x10(3)/mcL CERNER MILLENNIUM Eos % 3.5 % CERNER MILLENNIUM Eosinophils Abs 0.2 0.0 - 0.5 x10(3)/mcL CERNER MILLENNIUM Basophil % 0.6 % CERNER MILLENNIUM Baso Absolute 0.0 0.0 - 0.2 x10(3)/mcL CERNER MILLENNIUM Immature [...] 0.05 x10(3)/mcL CERNER MILLENNIUM Blood specimen (specimen) 05/22/2014 10:13 AM EST 05/22/2014 10:22 AM EST Narrative Resulting Agency Comment Spec In Lab [place]ia Schmid MD HEMATOLOGY ORDERABLE S CERROSALINA MCCLENDONENNIUM * (ABNORMAL) Hemogram (05/22/2014 10:13 AM EST) White Blood Cell 7.1 4.0 - 10.0 x10(3)/mc L CERNER MILLENNIUM Red Blood Cell 4.57(L) 4.63 - 6.08 x10(6)/mc L CERNER MILLENNIUM Hemoglobin 13.8 13.7 - 17.5 gm/dL CERNER MILLENNIUM Hematocrit 39.3(L) 40.0 - 51.0 % CERNER MILLENNIUM Mean Cell Volume 86.0 79.0 - 92.0 fL CERNER MILLENNIUM Mean Cell Hemoglobin 30.2 25.6 - 32.2 pg CERNER MILLENNIUM Mean Cell Hemoglobin Concentration 35.1 32.0 - 36.5 gm/dL CERNER MILLENNIUM Platelet 285 145 - 370 x10(3)/mc L CERNER MILLENNIUM RDW Standard Deviation 40.6 35.0 - 46.0 fL CERNER MILLENNIUM RDW coefficient of variation 13.0 10.9 - 14.4 % CERNER MILLENNIUM Mean Platelet Volume 10.1 9.0 - 12.0 fL CERNER MILLENNIUM Blood specimen (specimen) 05/22/2014 10:13 AM EST 05/22/2014 10:22 AM EST Narrative Resulting Agency Comment Spec In Lab Albania Schmid MD HEMATOLOGY ORDERABLE S CERROSALINA PEACOCKIUM * Cholesterol, total (05/22/2014 10:13 AM EST) Cholesterol, Total 166 <=199 mg/dL CERNER MILLENNIUM Comment: Recommendations of the NCEP Adult Treatment Panel for the following risk cutoff thresholds for the [place] population: Desirable: <200 mg/dL Borderline High: 200-239 mg/dL High: > or = 240 mg/dL Blood specimen (specimen) 05/22/2014 10:13 AM EST 05/22/2014 10:22 AM EST Narrative Resulting Agency Comment Spec In Lab Albania Schmid MD CHEMISTRY ORDERABLES [facility] * Hemoglobin A1c (05/22/2014 10:13 AM EST) Hemoglobin A1c 5.6 <=5.6 % [facility] Comment: Reference Range: 4.3 - 5.6% 5.7 - 6.4% - Increased Risk of Developing Diabetes Mellitus 6.5% - Consistent with diagnosis of Diabetes Mellitus In the absence of hyperglycemia (i.e. plasma glucose > 200 mg/dL) or classic symptoms of hyperglycemia a repeat measurement of HbA1c should be performed on a separate sample to confirm the diagnosis. Diagnosis and Classification of Diabetes Mellitus, Diabetes Care 2013; 36: Suppl. 1, W07-03 Estimated Average Glucose 114 mg/dL [facility] Comment: eAG equivalents for HbA1c percentages: HbA1c(%) ?eAG(mg/dL) 6.0 ?126 6.5 ?140 7.0 ?154 7.5 ?169 8.0 ?183 8.5 ?197 9.0 ?212 9.5 ?226 10.0 ? 240 Limitations: The eAG calculation has not been validated on women, individuals below 18 years old and above 70 years old, and individuals with hemoglobinopathies. Additional resources are available on the ADA website: [email or web address] Harjeet MENDOSA, Chanel J, Philip R, et al. ??Translating the A1C assay into estimated average glucose values. ??Diabetes Care 2008:31(8):4960-1556. Blood specimen (specimen) 05/22/2014 10:13 AM EST 05/22/2014 10:22 AM EST Narrative Resulting Agency Comment Spec In Lab Albania Schmid MD CHEMISTRY ORDERABLES Performing Organization Address [facility] Phone Number [facility] * Phosphorus (05/22/2014 10:13 AM EST) Phosphorus 3.7 2.5 - 4.5 mg/dL [facility] Blood specimen (specimen) 05/22/2014 10:13 AM EST 05/22/2014 10:22 AM EST Narrative Resulting Agency Comment Spec In Lab Albania Schmid MD CHEMISTRY ORDERABLES Performing Organization Address [facility] Number [facility] * Albumin Level (05/22/2014 10:13 AM EST) Albumin 3.5 3.2 - 5.2 gm/dL [facility] Blood specimen (specimen) 05/22/2014 10:13 AM EST 05/22/2014 10:22 AM EST Narrative Resulting Agency Comment Spec In Lab Albania Schmid MD CHEMISTRY ORDERABLES Performing Organization Address [facility] Number [facility] * (ABNORMAL) PTH (05/22/2014 10:13 AM EST) Parathyroid Hormone 153(H) 15 - 65 pg/mL [facility] Blood specimen (specimen) 05/22/2014 10:13 AM EST 05/22/2014 10:22 AM EST Narrative Resulting Agency Comment Spec In Lab Albania Schmid MD CHEMISTRY ORDERABLES Performing Organization Address [facility] Number [facility] * (ABNORMAL) Basic Metabolic Panel (non-fasting) (05/22/2014 10:13 AM EST) Glucose 124 60 - 199 mg/dL [facility] Comment:Diabetes: >=200 mg/d L plus symptoms Blood Urea Nitrogen 48(H) 10 - 20 mg/dL CERNER MILLENNIUM Creatinine 3.19(H) 0.80 - 1.50 mg/dL CERNER MILLENNIUM Comment: Please note that the pediatric reference intervals supplied above were not validated at [facility]. Results from pediatric patients should be interpreted in conjunction to the patient's age, height and muscle mass. Sodium 144 135 - 145 mmol/L CERNER MILLENNIUM Potassium 3.6 3.5 - 5.0 mmol/L CERNER MILLENNIUM Comment: Please note: ??Patients with WBC >100,000 may have falsely elevated Potassium levels. ??For accurate Potassium quantification in these patients send serum separator tube (gold top) for subsequent determinations. ??Contact the Clinical Chemistry Laboratory if there are any questions. Chloride 103 98 - 107 mmol/L CERNER MILLENNIUM Carbon Dioxide 28 22 - 31 mmol/L CERNER MILLENNIUM Anion Gap 13 5 - 15 mmol/L CERNER MILLENNIUM Calcium 9.0 8.5 - 10.5 mg/dL CERNER MILLENNIUM Est Glomerular Filtration Rate 20(L) >=60 CERNER MILLENNIUM Comment: This estimated GFR [...] the following links into your internet browser. [email or web address] Blood specimen (specimen) 05/22/2014 10:13 AM EST 05/22/2014 10:22 AM EST Narrative Resulting Agency Comment Spec In Lab Albania Schmid MD CHEMISTRY ORDERABLES CERROSALINA COOK documented in this encounter Visit Diagnoses Diagnosis CKD (chronic kidney disease) stage 3, GFR 30-59 ml/min- Primary Chronic kidney disease, Stage III (moderate) Hypertension Unspecified essential hypertension Proteinuria DM type 2 (diabetes mellitus, type 2) Type II or unspecified type diabetes mellitus without mention of complication, not stated as uncontrolled Hyperparathyroidism Hyperparathyroidism, unspecified H/O hematuria Personal history of other disorder of urinary system Hypertension Unspecified essential hypertension Proteinuria DM type 2 (diabetes mellitus, type 2) Type II or unspecified type diabetes mellitus without mention of complication, not stated as uncontrolled CKD (chronic kidney disease) stage 3, GFR 30-59 ml/min Chronic kidney disease, Stage III (moderate) documented in this encounter Care Teams Legal Associate Relationship Specialty Start Date End Date Albania Denis DO [address] [place] [address] PCP - General 09/03/12 03/17/22 documented as of this encounter
--- OUTSIDE RECORDS SUMMARY | 2024-02-14 11:38 | XMS_ITS | Encounter Summary ---
Author Organization [facility] [place] [address] Care Team Providers Care Golf Club Weighter Name Role Phone AdeelUrbano Primary Care Provider [phone] Reason for Referral * Consultation (Routine) - Closed Specialty Diagnoses / Procedures Referred By Humberto flor Referred To Contact Neurology Diagnoses Acute respiratory failure, unspecified whether with hypoxia or hypercapnia Shadi Wagner, [facility] [place] [address] [facility] [address] [place] [phone] Referral ID Status Reason Start Date Expiration Date V isits Requested Visits Authorized [id number] Closed Consult Only 04/09/2015 04/08/2016 1 1 Encounter Details Date Type Department Care Team (Late st Contact Info) Description 04/09/2015 Orders Only [place] [address] Shadi Wagner, [facility] [place] [address] Acute respiratory failure, unspecified whether with hypoxia or hypercapnia Social History Tobacco Use Types Packs/Day Years Used Date Smoking Tobacco: Former Sex and Gender Information Value Date Recorded Sex Assigned at Not on file Gender Identity Not on file Sexual Orientation Not on file documented as of this encounter Progress Notes * Nick Wagner DO - 04/09/2015 10:39 AM EDT Patient seen in hemodialysis rounds at [facility]. Nursing staff noted that patient has had episodes of sudden unresponsiveness, eyes rolling back, foaming at mouth. Blood glucose checked normal during episodes. Hemodynamics not changed during episodes. Patient noted to have bluing of lips during episode. Unclear if seizure is definitive diagnosis, however would like to evaluate as potential cause of these episodes. Shadi Wagner DO Nephrology Fellow documented in this encounter Plan of Treatment Upcoming Encounters Date Type Department Care Team (Late st Contact Info) Description 04/15/2024 10:00 AM EDT Hospital Encounter Non-Invasive [place] [address] Arrived Scheduled Referrals Name Type Priority Associated Diagnoses Orde r Schedule Referral to Neurology Outpatient Referral Routine Acute respiratory failure, unspecified whether with hypoxia or hypercapnia Ordered: 04/09/2015 documented as of this encounter Visit Diagnoses Diagnosis Acute respiratory failure, unspecified whether with hypoxia or hypercapnia documented in this encounter Care Teams Golf Club Weighter Relationship Specialty Start Date End Date Urbano Denis DO [address] [place] [address] PCP - General 09/03/12 03/17/22 documented as of this encounter
--- OUTSIDE RECORDS SUMMARY | 2024-02-14 11:38 | XMS_ITS | Encounter Summary ---
Author Organization [facility] Address [facility] [place] [address] Care Team Providers Care Insole Cementer Name Role Phone Albania Denis DO Primary Care Provider + [phone] Reason for Visit * Reason Comments GI Problem Encounter Details Date Type Department Care Team (Late st Contact Info) Description 05/16/2015 3:00 PM EST Office [place] [address] Tulio Marcelo MD [facility] DR GASTROENTEROLOGY [place] [address] Chronic hepatitis C without hepatic coma; Hepatitis C virus infection without hepatic coma, [...] Sign Reading Time Taken Comments Blood Pressure 100/53 05/16/2015 2:45 PM EST Pulse 62 05/16/2015 2:45 PM EST Temperature - - Respiratory Rate - - Oxygen Saturation - - Inhaled Oxygen Concentration - - Weight 109.3 kg (241 lb) 05/16/2015 2:4 5 PM EST Weighed with boots. Height 176.5 cm (5' 9.5) 05/16/2015 2: 45 PM EST Body Mass Index 35.08 05/16/2015 2:45 PM EST documented in this encounter Progress Notes * Tulio Marcelo MD - 05/16/2015 3:26 PM EST [facility] EVALUATION Patient: Cody Bolden Date of : 1950 ENGINEERING ILLUSTRATOR: Tulio Marcelo MD PCP: ALBANIA DENIS DO Requesting Provider: 05/16/2015 REASON FOR CONSULTATION HISTORY OF PRESENT ILLNESS Cody Bolden is a 64 y.o. year old with HCV here for a pre transplant evaluation for his kidney.Diagnosed with HCV around November 2014. Never told had abnormal liver test no acute hepatis or jaundice. Did have peripheral edema with renal insufficiency, no ascites, encephalopathy., muscle mass lossor GI bleeding. Outside fibroscan said to be stage 1-2 fibrosis, reading not available. Viral load 142,000. US 03-28-2015: cholelithiasis without acute cholecystitis. Fatty liver without mass, normal spleen. Past Medical History: 1. Type 2 DM [...] Outpatient Prescriptions Medication Sig Dispense Refill ??? clopidogrel (PLAVIX) 75 mg Tablet Take 1 tablet by mouth daily. 30 tablet 0 ??? levothyroxine (SYNTHROID) 25 mcg Tablet Take 25 mcg by mouth every morning. ??? hydrALAZINE (APRESOLINE) 25 mg Tablet Take 75 mg by mouth 2 times daily. ??? carvedilol (COREG) 6.25 mg Tablet [...] capsule Take 20 mg by mouth daily. ??? oxyCODONE (ROXICODONE) 5 mg Tablet Take 1 tablet by mouth every 4 hours as needed for Pain. 15 tablet 0 ??? magnesium oxide (MAG-OX) 400 mg Tablet Take 400 mg by mouth daily. No current facility-administered medications for this visit. 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 (-) service (+) [id number], airgun vaccines Blood Transfusions (-) Close contact with Hepatitis Relationship (+) cousan [phone]. never tested FAMILY HISTORY Negative except as noted below No family history of liver disease Medical problem Family member Medical Problem Family member Medical Problem Family member Alcohol drug Problem Kidney disease Mental illness Anemia or Blood Disease Liver disease Depression Diabetes Liver cancer Seizure High blood pressure Mother siblings Stroke Lung disease Heart disease Clotting problems Colon Cancer High cholesterol Immune disorders Other Cancer brother REVIEW OF SYMPTOMS X if positive General Weight change > 10+ lbs. last 6 months X Fatigue Poor sleep Fever Night sweats Chills Skin Itching X Easy bruising Change in moles Change in skin pigmentation History of recurrent or active rash Eyes, ears, nose, throat Blurred vision or change in vision Glaucoma Cataracts Hearing loss Ringing in ears Sinus problems Hoarseness Dry eyes or dry mouth X(mouth) Endocrine Thyroid disease X Change in tolerance to heat or cold Excessive thirst Cardiovascular Chest pain Irregular heart beat or palpitations Pain in legs with walking Swelling in Feet Pulmonary/lungs Shortness of breath Persistent cough Coughing up blood Asthma or Wheezing Liver History of abnormal liver tests Females Only # Pregnancies Date last Pap Smear: Have you had an abnormal Pap Smear? ? No ?Yes Diagnosis Follow up Date last Mammogram Results Gastrointestinal Poor appetite Abdominal pain Indigestion X Trouble swallowing Diarrhea Constipation Change in bowel habits Nausea or vomiting Rectal bleeding or blood in stools Muscle/joint/bone Swelling of ankles or legs X Pain or swelling of joints Back pain Neck or shoulder pain Muscle cramping Color changes in hands or feet with cold Movement of legs at night Neurologic/Psychiatric Blackouts or loss of consciousness Headache Weakness or numbness in legs or arms X Tremor Uncontrolled movements Worsening of memory and concentration Personality changes Depression Anxiety Genitourinary Frequent urination Painful urination Blood in urine Pain with sexual activity Decreased desire for sexual [place] History of Sexually Transmitted Disease Urinating more than 2 times per night X PHYSICAL EXAM Filed Vitals: 05/16/15 1445 BP: 100/53 Pulse: 62 Height: 176.5 cm (5' 9.5) Weight: 109.317 kg (241 lb) Body mass index is 35.09 kg/(m^2). Constitutional: Well appearing Skin: no cyanosis, , [...] for: AFP Chemistry Component Value Date/Time NA 140 05/11/2015 K 4.7 05/11/2015 CL 102 05/11/2015 CO2 28 05/11/2015 BUN 44 05/11/2015 CREATININE 6.16 05/11/2015 Component Value Date/Time CALCIUM 9.0 05/11/2015 ALKPHOS 82 05/11/2015 AST 19 05/11/2015 ALT 22 05/11/2015 BILITOT 0.90 05/11/2015 Lab Results Component Value Date WBC 8.7 05/11/2015 HGB 11.8* 05/11/2015 HCT 35.7* 05/11/2015 MCV 92.2 05/11/2015 PLATELET 256 05/11/2015 Lab Results Component Value Date INR 1.0 05/11/2015 [facility] Hepatology Fibrosis Assessment 05/16/2015 Liver disease diagnosis: HCV, NAFLD Procedure: Vibration Controlled Transient Elastography (VCTE) or Fibroscan [place] Protocol: Patient's identity, procedure and site were verified, confirmatory pause performed. Discussed procedure including risks and potential complications. Questions answered. Patient verbalizes understanding and wishes to proceed with Fibroscan assessment. Patient was placed in the supine position with right arm in maximum abduction to allow optimal exposure of right lateral abdomen. Patient was briefly assessed. Testing was performed in the mid-axillary location. 50Hz Shear Wave pulses were applied and the resulting Shear Wave and Propagation Speed was detected with a 3.5MHz ultrasonic signal, using the Fibroscan probe. Skin to liver capsule distance and liver parenchyma were accessed during the entire examination with the Fibroscan probe. Patient was instructed to breathe normally and abstain from sudden movements during the procedure. At least ten Sheer Waves were produced; individual measurements of each Shear Wave were calculated. Patient tolerated the procedure well with no complications. Fibroscan Results: Mean kPa: 6.1 Mean IQR: (goal is <30 %) 17% Success rate: (goal is >60%) 100% Predicted fibrosis stage: Stage 1-2 Interpretation: Based on his Fibroscan results, history, clinical examination andd review of his laboratory and radiological data, patient likely has stage 1-2/4 fibrosis (early) ASSESSMENT/PLAN Cody Bolden is a 64 y.o. with HCV and Non alcoholic liver [...] recommend liver biopsy at thistime 2. HCV. Will obtain viral load and genotype for baseline. If there is low stage fibrosis, as we suspect would not treat prior to renal transplant as this would take away the possibility of HCV(+) donors. Since there is no need for IFN treatment now, treatment after transplant would be highly successful, >90%, little risk to graft, and easier as pt tawanna have normal renal function 3. NAFLD. Recommend diet exercise and weight loss. 4. Social. Would recommend testing of , children, close contacts for HCV. Long discussion with patient and they agree with this approach Tulio Marcelo MD Section of Gastroenterology and Hepatology [facility] [place] [address] V: [phone] F: [phone] Copy: DO elder FUENTES documented in this encounter Plan of Treatment Upcoming Encounters Date Type Department Care Team (Late st Contact Info) Description 04/15/2024 10:00 AM EDT Hospital Encounter Non-Invasive Cardiology Lab [facility] [place] [address] Arrived Pending Results Name Type Priority Associated Diagnoses Date /Time Hepatitis C genotype Lab Routine Chronic hepatitis C without hepatic coma 05/16/2015 4:20 PM EST Scheduled Orders Name Type Priority Associated Diagnoses Orde r Schedule Hepatitis C genotype Lab Routine Chronic hepatitis C without hepatic coma Expected: 05/16/2015, Expires: 05/16/2015 documented as of this encounter Procedures Procedure Name Priority Date/Time Associated Diagnosis Comments LIVER FIBROSIS PANEL Routine 05/16/2015 4:33 PM EST documented in this encounter Results * (ABNORMAL) Liver Fibrosis Panel (05/16/2015 4:33 PM EST) Liver Fibrosis Panel FLEXITEST 3(A) [facility] Comment: FLEXITEST 3 TESTS RESULTS--------UNITS--REF. RANGE--- Fibrosis Score ? 0.52 Fibrosis Stage ? F2 Fibrosis Interpretation ? SEE NOTE moderate fibrosis Fibro Test Score ?? Metavir Score 0.00-0.21 ?F0 ? no fibrosis 0.22-0.27 ?F0-F1 0.28-0.31 ?F1 ? minimal fibrosis 0.32-0.48 ?F1-F2 0.49-0.58 ?F2 ? moderate fibrosis 0.59-0.72 ?F3 ? advanced fibrosis 0.73-0.74 ?F3-F4 0.75-1.00 ?F4 ? severe fibrosis Necroinflammat Act Score ? 0.07 Necroinflammat Act Grade ? A0 Necroinflammat Interp ? SEE NOTE no activity ActiTest Score ? Metavir Score 0.00-0.17 ?A0 ? no activity 0.18-0.29 ?A0-A1 0.30-0.36 ?A1 ? minimal activity 0.37-0.52 ?A1-A2 0.53-0.60 ?A2 ? significant activity 0.61-0.62 ?A2-A3 0.63-1.00 ?A3 ? severe activity Bcdpj-1-Qfftniylzwvaw ? 124 ?mg/dL ??106-279 Haptoglobin ?95 ?mg/dL ??43-212 Apolipoprotein A1 ?49 L ?mg/dL ??94-176 This value is very low, under the 1 percentile. Check the value. Usual minimum value is 56.0 mg/dl. Total Bilirubin ? 1.0 ?mg/dL ??0.2-1.2 GGT ?26 ?U/L ??3- 70 ALT ?15 ?U/L ??9- 46 Reference ID ?[id number] Footnote ?SEE NOTE The reliability of results [...] The performance characteristics have been determined by [facility]. It has not been cleared or approved by the U.S. Food and Drug Administration. Performance characteristics refer to the analytical performance of the test. [employer], the associated logo, [employer] and all associated [employer] jacobsen are the registered trademarks of [employer]. All third alliance party jacobsen - (R) and (TM) - are the property of their respective owners. (C) 3392-4552 [employer]. All rights reserved. Test performed by: ? [facility] ? [address] [facility] ? [place] [address] ? Phone: ??[phone] Director: ??Tanmay Huggins M.D. Test Reported by [facility], [facility], [address] [place] [address] Fer Stoll M.D., Ph.D., Director of Laboratories , [facility] [id number] Blood specimen (specimen) Venous Draw / Unknown 05/16/2015 4:33 PM EST 05/17/2015 7:56 AM EST Narrative Resulting Agency Comment Spec In Lab Tulio Marcelo MD LAB SEND OUT SUNIA BG Performing Organization Address City/State/ZIP Co wy Phone Number [facility] documented in this encounter Visit Diagnoses Diagnosis Chronic hepatitis C without hepatic coma Hepatitis C virus infection without hepatic coma, unspecified chronicity documented in this encounter Care Teams Insole Cementer Relationship Specialty Start Date End Date Albania Denis, DO [address] [place] [address] PCP - General 09/03/12 03/17/22 Ruchi Valles RN Nurse Clinic Transplant Surgery 07/30/15 documented as of this encounter
--- OUTSIDE RECORDS SUMMARY | 2024-02-14 11:38 | XMS_ITS | Encounter Summary ---
Author Organization [facility] [place] [address] Care Team Providers Care Air Turning Machine Feeder Name Role Phone Urbano Denis DO Primary Care Provider Encounter Details Date Type Department Care Team (Late st Contact Info) Description 05/24/2014 External Results Neph[place] [address] Social History Tobacco Use Types Packs/Day Years [...] AM EDT Hospital Encounter Non-Invasive [place] [address] Arrived documented as of this encounter Procedures Procedure Name Priority Date/Time Associated Diagnosis Comments LAB SCAN Routine 05/11/2014 LAB SCAN Routine 05/11/2014 LAB SCAN Routine 05/02/2014 LAB SCAN Routine 04/26/2014 documented in this encounter Results * Scan Doc: Lab (05/11/2014) Historical Provider MEDIA MGR SCAN EX T ORDR/RSLT * Scan Doc: Lab (05/11/2014) Historical Provider MEDIA MGR SCAN EX T ORDR/RSLT * Scan Doc: Lab (05/02/2014) Historical Provider MEDIA MGR SCAN EX T ORDR/RSLT * Scan Doc: Lab (04/26/2014) Historical Provider MEDIA MGR SCAN EX T ORDR/RSLT documented in this encounter Visit Diagnoses Not on filedocumented in this encounter Care Teams Air Turning Machine Feeder Relationship Specialty Start Date End Date Urbano Denis DO [address] [place] [address] [address] [place] [address] PCP - General 09/03/12 03/17/22 documented as of this encounter
--- OUTSIDE RECORDS SUMMARY | 2024-02-14 11:38 | XMS_ITS | Encounter Summary ---
Author Organization [facility] [place] [address] Care Team Providers Care Plastic Products Sales Representative Name Role Phone AdeelUrbano toscano Primary Care Provider [phone] Encounter Details Date Type Department Care Team (Late st Contact Info) Description 01/16/2015 Orders Only Solid [place] [address] Franko Larkin MD [facility] [place] [address] ESRD (end stage renal disease) Social History [...] AM EDT Hospital Encounter [place] [address] Arrived documented as of this encounter Results * First Time Hemodialysis access (03/15/2015 7:37 AM EDT) VB Text Report Department: Vascular Surgery Lab Patient: [id number] (SHAKIRAETHEL SRINIVASAN) CPT Code: G0365 ICD-9: 585.6 Referring Physician: MARIANGEL FRANCO Indication: ??access for dialysis/evaluate vessels ICD9 Diagnosis Code: 585.6 Definitions: ??*Perla - Diameter, *Pres - Pressure, *Rad-Occ - Radial Occlusion Pressure, UA - Upper Arm, FA - Fore Arm, Ceph - Cephalic, Bas - Basilic. All systolic pressures in this study are derived based on Doppler assessment of blood flow. Findings: Shoulder Cephalic Vein, Right ? Perla.(mm): 4.4 Mid Upper Arm Cephalic Vein, Right ? Perla.(mm): 3.1 Antecubital Fossa Cephalic Vein, Right ? Perla.(mm): 4.3 Mid Forearm Cephalic Vein, Right ? Perla.(mm): 2.1 Wrist Cephalic Vein, Right ? Perla.(mm): 2.2 Mid Upper Arm Basilic Vein, Right ? Perla.(mm): 6.1 Antecubital Fossa Basilic Vein, Right ? Perla.(mm): 4.8 Brachial Artery, Right ? Pres. (mmHg): 149 ? Waveform: Biphasic Radial Artery, Right ? Waveform: Triphasic Thumb, Right ? Pres. (mmHg): 125 ? Rad-Occ.: 13 ? %Change: -90 Shoulder Cephalic Vein, Left ? Perla.(mm): 3.5 Mid Upper Arm Cephalic Vein, Left ? Perla.(mm): 3.0 Antecubital Fossa Cephalic Vein, Left ? Perla.(mm): 4.9 Mid Forearm Cephalic Vein, Left ? Perla.(mm): 2.4 Wrist Cephalic Vein, Left ? Perla.(mm): 3.4 Upper Arm Basilic Vein, Left ? Perla.(mm): 6.1 Mid Upper Arm Basilic Vein, Left ? Perla.(mm): 5.6 Antecubital Fossa Basilic Vein, Left ? Perla.(mm): 3.3 Brachial Artery, Left ? Pres. (mmHg): 146 ? Waveform: Biphasic Radial Artery, Left ? Waveform: Triphasic Thumb, Left ? Pres. (mmHg): 121 ? Rad-Occ.: 25 ? %Change: -79 Interpretation: Patent subclavian vein with normal pulsatile respirophasic Doppler flow signals. Patent cephalic and basilic veins with no evidence of thrombus, mild vein wall thickening. Basilic-brachial confluence is in the proximal arm on the right and in the proximal/mid arm on the left. Tourniquet was used for cephalic vein diameter measurements in the forearm. There is a 90% reduction in systolic pressure in the right thumb with radial artery compression. There is a 79% reduction in systolic pressure in the left thumb with radial artery compression. The brachial artery bifurcation level is just distal to the antecubital fossa bilaterally. Comparison: ??No previous study in our vascular lab database for comparison. Electronically Signed by: YUNIOR EDWARDS on 2015-03-19 10:52:24 PM [facility] VB Text Report End of Report [facility] 03/15/2015 7:37 AM EDT Mariangel Franco MD VASCULAR ORDERABLES Performing Organization Address City/State/[facility] Co de Phone Number [facility] documented in this encounter Visit Diagnoses Diagnosis ESRD (end stage renal disease) End stage renal disease documented in this encounter Care Teams Plastic Products Sales Representative Relationship Specialty Start Date End Date Urbano Denis DO [address] [place] [address] PCP - General 09/03/12 03/17/22 documented as of this encounter
--- OUTSIDE RECORDS SUMMARY | 2024-02-14 11:38 | XMS_ITS | Encounter Summary ---
Author Organization [facility] [place] [address] Care Team Providers Care Resident Care Director Name Role Phone Urbano Denis DO Primary Care Provider Reason for Visit * Auth/Cert - Closed Specialty Diagnoses / Procedures Referred By Humberto flor Referred To Contact Diagnoses ESRD ESRD Procedures AV FISTULA CREATION, DIRECT HEMODIALYSIS, ANY SITE, EG ASHWINI FISTULA UPPER EXTREMITY AV FISTULA CREATION, DIRECT HEMODIALYSIS, ANY SITE, EG ASHWINI FISTULA UPPER EXTREMITY Referral ID Status Reason Start Date Expiration Date Visits Re quested Visits Authorized [id number] Closed 1 1 Encounter Details Date Type Department Care Team (Late st Contact Info) Description 05/09/2015 12:28 PM [facility] - 05/09/2015 5:37 PM [facility] Hospital Encounter [place] [address] Jennifer Amaro MD [facility] [place] [address] CKD (chronic kidney disease), unspecified stage Discharge Disposition: Home Social History Tobacco Use [...] Sign Reading Time Taken Comments Blood Pressure 141/84 05/09/2015 5:00 PM EST Pulse 58 05/09/2015 5:00 PM EST Temperature 36.4 ??C (97.5 ??F) 05/09/2015 4:10 PM ES T Respiratory Rate 18 05/09/2015 5:00 PM EST Oxygen Saturation 95% 05/09/2015 5:00 PM EST Inhaled Oxygen Concentration - - [...] concerning symptoms The number for questions is [phone] before 5 PM weekdays and [phone] after 5 PM and on weekends (ask for the General Surgery resident sole conditioner). Activity level: Do not lift more than [...] Del Castillo MD General Surgery, PGY2 P# [id number] documented in this encounter H&P Notes * [...] Amaro MD - 05/09/2015 4:01 PM EST [facility] [place] Operative Note Patient Name: Cody Bolden : [id number] MR#: [id number] Case Date: 05/09/2015 Surgeon: Surgeon(s) and Role: [...] AM EDT Hospital Encounter Non-[place]vasive [place] [address] Arrived documented as of this encounter Procedures [...] Glucose, POC 98 65 - 199 mg/dL [facility] Comment: Supplemental ranges: <140 mg/dL before meals <180 mg/dL all other times of the day Blood specimen (specimen) 05/09/2015 1:30 PM EST 05/09/2015 1:30 PM EST Jennifer Amaro MD POINT OF CARE TEST ORDERABLES Performing Organization Address [facility] Co de Phone Number [facility] * Potassium (05/09/2015 12:45 PM EST) Potassium 4.2 3.5 - 5.0 mmol/L [facility] Comment: Please note: ??Patients with WBC [...] Lab Jennifer Amaro MD [facility] documented in this encounter Visit Diagnoses Diagnosis CKD (chronic kidney disease), unspecified stage documented in this encounter Administered Medications Inactive Administered Medications - up to 3 most recent administrations Medication Order MAR Action Action Date Dose Rate Site oxyCODONE (ROXICODONE) immediate release tablet 5 mg [...] RN) documented in this encounter Care Teams Resident Care Director Relationship Specialty Start Date End Date Urbano Denis DO [address] [place] [address] PCP - General 09/03/12 03/17/22 documented as of this encounter
--- OUTSIDE RECORDS SUMMARY | 2024-02-14 11:38 | XMS_ITS | Encounter Summary ---
Author Organization [facility] [place] [address] Care Team Providers Care Software Design Manager Name Role Phone AdeelUrbano toscano Primary Care Provider + [phone] Encounter Details Date Type Department Care Team (Late st Contact Info) Description 05/15/2015 External [place] [phone] Tulio Marcelo MD [facility] [place] [address] Social History Tobacco Use Types Packs/Day Years [...] AM EDT Hospital Encounter Non-[place] [phone] Arrived documented as of this encounter Procedures Procedure Name Priority Date/Time Associated Diagnosis Comments EXTERNAL LAB CBC CMP THYROID RESULTS PANEL Routine 05/11/2015 documented in this encounter Results * (ABNORMAL) CBC / CMP / Thyroid External Results (05/11/2015) White Blood Cell 8.7 Hemoglobin 11.8(A) 13.5 - 17.5 Hematocrit 35.7(A) 41.0 - 53.0 Mean Cell Volume 92.2 82.0 - 108.0 Platelet 256 Sodium 140 137 - 147 Potassium 4.7 3.4 - 5.3 Chloride 102 99 - 108 Carbon Dioxide 28 22 - 29 Blood Urea Nitrogen 44 Creatinine 6.16 Est Glomerular Filtration Rate 9.17 Glucose 115 Calcium 9.0 8.7 - 10.7 Protein, Total 7.3 6.4 - 8.2 Albumin 3.1(A) 3.5 - 5.0 Bilirubin, Total 0.90 Alkaline Phosphatase 82 Aspartate Aminotransferase 19 14 - 40 Alanine Aminotransferase 22 10 - 40 Prothrombin Time 10.1 International Normalization Ratio 1.0 0.9 - 1.1 Historical Provider MD EXTERNAL LAB ROCHELLE JENNINGS documented in this encounter Visit Diagnoses Not on filedocumented in this encounter Care Teams Software Design Manager Relationship Specialty Start Date End Date Urbano Denis DO [facility] [address] [place] [address] PCP - General 09/03/12 03/17/22 documented as of this encounter
--- OUTSIDE RECORDS SUMMARY | 2024-02-14 11:38 | XMS_ITS | Encounter Summary ---
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; Uremia Discharge Disposition: Home Social History Tobacco Use Types Packs/Day Years Used Date Smoking Tobacco: Former Sex and Gender Information Value Date Recorded Sex Assigned at Not on file Gender Identity Not on file Sexual Orientation Not on file documented as of this encounter Last Filed Vital Signs Vital Sign Reading Time Taken Comments Blood Pressure 153/81 01/09/2015 7:00 AM EDT Pulse 57 01/09/2015 7:00 AM EDT Temperature 35.9 ??C (96.6 ??F) 01/09/2015 7:00 AM ED T Respiratory Rate 18 01/09/2015 7:00 AM EDT Oxygen Saturation 97% 01/09/2015 7:00 AM EDT Inhaled Oxygen Concentration - - Weight - - Height - - Body Mass Index - - documented in this encounter Medications at Time of Discharge Medication Sig Dispensed Refills Start Date End Date furosemide (LASIX) 80 mg Tablet Take 40 [...] (PERIDEX) 0.12 % Mouthwash 0 01/08/2014 03/16/2015 ONE TOUCH DELICA LANCETS 30 gauge Misc 0 04/28/20142015 doxazosin (CARDURA) 4 mg Tablet Take 1 tablet by mouth nightly. 90 tablet 3 05/22/2014 10/05/2015 omeprazole (PRILOSEC) 20 mg capsule Take 20 mg by mouth daily. 09/20/2015 amlodipine (NORVASC) 10 mg tablet 08/08/2005 01/24/2015 documented as of this encounter Progress Notes * Nelda Tobias RN - 01/10/2015 7:20 AM EDT Interventional and Vascular Radiology Post-Procedure Call Name: Ethel Akins Age: 64 y.o. Sex; Male Date of : 1950 (home) No relevant phone numbers on file. PCP URBANO DENIS DO [phone] Date/Time of call: January 10, 2015/7:20 AM Procedure: Tunneled HD cath placement Procedural Provider: Seng Contact with patient or if not, with whom? Message left on answering machine? (yes/no) Provider notified via phone or email if unable to contact pt: (yes/no) Are you having pain related to your procedure now? Are you having any swelling or bleeding from the site? Are there any improvement in your symptoms? Are you having any other problems related to your procedure? Comments: Did you understand the discharge instructions given and do you have any questions? Comments: Do you have any comments about your Nurse or Provider or the care you received? Nurse Comments: * Patricia Romero RN - 01/09/2015 8:34 AM EDT [facility] Name: ETHEL AKINS Date of : 1950 AGE 64 y.o. Address: [address] [place] [phone] (home) Mobile: No relevant phone numbers on file. Referring Provider: Urbano Loya REASON FOR VISIT: Reason for exam and clinical history: Renal failure needing dialysis access Other pertinent information: placement of dialysis access Exam/Procedure requested: Tunneled dialysis catheter placement Is the patient taking any anticoagulants and/or antiplatelet meds? Yes plavix, elaquis No Known Allergies Pertinent PMH: Patient Active Problem List Diagnosis Code ??? DM type 2 (diabetes mellitus, type 2) 250.00 ??? Hypertension 401.9 ??? DJD (degenerative joint disease) 715.90 ??? Hematuria 599.70 Pertinent PSH: No past surgical history on file. Date/Procedure Med's given/comments 01/08/2015: Tunneled HD catheter Versed 2.5 mg, Fentanyl 125 mcg. Tolerated well Laboratory Results: No results found for: INR No components found for: PT/PTT Lab Results Component Value Date CREATININE 2.73* 07/11/2014 Lab Results Component Value Date K 3.6 07/11/2014 Lab Results Component Value Date PLATELET 270 07/11/2014 Medications: Prior to Admission medications Medication Sig Start Date End Date Taking? Authorizing Provider apixaban (ELIQUIS) 5 mg Tablet Take 5 mg by mouth 2 times daily. PROVIDER, HISTORICAL pravastatin (PRAVACHOL) 20 mg Tablet Take 20 mg by mouth daily. PROVIDER, HISTORICAL calcitRIOL (ROCALTROL) 0.25 mcg Capsule Take 1 capsule by mouth three times a week. 07/12/14 Urbano Loya MD clopidogrel (PLAVIX) 75 mg Tablet Take 75 mg by mouth daily. PROVIDER, HISTORICAL labetalol (NORMODYNE) 100 mg Tablet Take 50 mg by mouth 2 times daily. PROVIDER, HISTORICAL ONE TOUCH ULTRA TEST Strip 04/28/14 PROVIDER, HISTORICAL ONE TOUCH ULTRAMINI Kit 04/28/14 PROVIDER, HISTORICAL chlorhexidine (PERIDEX) 0.12 % Mouthwash 01/08/14 PROVIDER, HISTORICAL FLUZONE QUAD 0831-1624, PF, 60 mcg (15 mcg x 4)/0.5 mL Syringe 04/07/14 PROVIDER, HISTORICAL ONE TOUCH DELICA LANCETS 30 gauge Misc 04/28/14 PROVIDER, HISTORICAL doxazosin (CARDURA) 4 mg Tablet Take 1 tablet by mouth nightly. 05/22/14 Urbano Loya MD omeprazole (PRILOSEC) 20 mg capsule Take 40 mg by mouth daily. PROVIDER, HISTORICAL potassium & sodium phosphates (NEUTRA-PHOS) 280-160-250 mg PwPk Take 99 g by mouth daily. PROVIDER, HISTORICAL magnesium oxide (MAG-OX) 400 mg tablet Take 500 mg by mouth daily. PROVIDER, HISTORICAL amlodipine (NORVASC) 10 mg tablet 08/08/05 losartan-hydrochlorothiazide (HYZAAR) 100-25 mg per tablet 08/08/05 ++++ FOR OUTPATIENT SCAN'S: I have informed this patient that they require a retail delivery driver to be present and in the building to drive them home after this procedure. In the absence of a retail delivery driver, IR will not be able to perform this procedure and will need to reschedule. Pt verbalized understanding of these i nstructions during the pre-procedure education via phone. (initials) * Santosh Lux MD - 01/09/2015 7:20 AM EDT PRE-SEDATION ASSESSMENT / FOCUSED H&P Addendum: The [...] Heart: RRR Lungs: clear ASA Classification: ASA 3 - Patient with moderate systemic disease with functional limitations Mallampati Classification: II (soft palate, uvula, fauces visible) documented in this encounter Procedure Notes * Santosh Ellsworth MD - 01/09/2015 8:34 AM EDT VIR PROCEDURE NOTE Procedure: Tunneled HD catheter placement. ACC#: [id number] Indication for Procedure: 64 y.o. male with Stage 5 CKD who presents for placement of a tunneled pheresis catheter for dialysis. Per Dr. Loya 01/04/15, Spoke with Dr. Lewis from [facility] at [facility] He has been seeing [Yuan] for a few months and his Cr has been steadily rising to the mid 5s. Mr. Akins is developing some AM nausea and Dr. Lewis is concerned that he is becoming uremic. He would like me to arrange dialysis catheter placement here and dialysis initiation at [facility]. Procedure events and findings: After obtaining informed consent patient was positioned supine on procedure table. Right neck base and upper chest prepped and draped, maximum sterile barrier techniquewas used throughout. Local anesthesia provided with 1% lidocaine. Due to the painful nature of the p rocedure, patient received split doses of intravenous fentanyl and versed from the IR nurse while pulse, pressure, and oxygen saturation were continuously monitored. Right IJ accessed with micropuncture technique under U/S guidance and a 4Fr sheath placed. 14.5Fr 28cm HD catheter tunneled from upper chest to neck entry site. 4Fr sheath exchanged over guide wire for peel away sheath. Catheter placed via peel away sheath with tip positioned in RA under fluoroscopic guidance. Both catheter ports aspirate and flush readily. Neck incision closed with liquid adhesive. Medications: Fentanyl 125mcg IV, Versed 2.5mg IV, 1% Lidocaine <10ccs subcutaneous. Fluoro Time: 0.1mins Est Blood Loss: <5cc. Complications: No immediate. Impression: Tunneled HD catheter placement via R IJ, ready for use. Resident/Fellow: None. Attending: Dr. Seng Lange performed this procedure. 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 Resident/Fellow: None. Attending: Dr. Seng Lange performed this procedure. Narrative 01/09/2015 3:44 PM EDT VIR PROCEDURE NOTE Procedure: Tunneled HD catheter placement. ACC#: [id number] Indication for Procedure: 64 y.o. male with Stage 5 CKD who presents for placement of a tunneled pheresis catheter for dialysis. Per Dr. Loya 01/04/15, Spoke with Dr. Lewis from nephrology at [facility]. He has been seeing [Yuan] for a few months and his Cr has been steadily rising to the mid 5s. Mr. Akins is developing some AM nausea and Dr. Lewis is concerned that he is becoming uremic. He would like me to arrange dialysis catheter placement here and dialysis initiation at [facility]. Procedure events and findings: After obtaining informed consent patient was positioned supine on procedure table. Right neck base and upper chest prepped and draped, maximum sterile barrier technique was used throughout. Local anesthesia provided with 1% lidocaine. Due to the painful nature of the procedure, patient received split doses of intravenous fentanyl and versed from the IR nurse while pulse, pressure, and oxygen saturation were continuously monitored. Right IJ accessed with micropuncture technique under U/S guidance and a 4Fr sheath placed. 14.5Fr 28cm HD catheter tunneled from upper chest to neck entry site. 4Fr sheath exchanged over guide wire for peel away sheath. Catheter placed via peel away sheath with tip positioned in RA under fluoroscopic guidance. Both catheter ports aspirate and flush readily. Neck incision closed with liquid adhesive. Medications: Fentanyl 125mcg IV, Versed 2.5mg IV, 1% Lidocaine <10ccs subcutaneous. Fluoro Time: 0.1mins Est Blood Loss: <5cc. Complications: No immediate. Procedure Note Santosh Ellsworth MD - 01/09/2015 VIR PROCEDURE NOTE Procedure: Tunneled HD catheter placement. ACC#: [id number] Indication for Procedure: 64 y.o. male with Stage 5 CKD who presents for placement of a tunneled pheresis catheter for dialysis. Per Dr. Loya 01/04/15, Spoke with Dr. Lewis from nephrology at [facility]. Bridgett been seeing Mr. Hinojosa] for a few months and his Cr has been steadily risingto the mid 5s. Mr. Akins is developing some AM nausea and Dr. Lewis isconcerned that he is becoming uremic. He would like me to arrange dialysiscatheter placement here and dialysis initiation at [facility]. Procedure events and findings: After obtaining informed consent patientwas positioned supine on procedure table. Right neck base and upper chestprepped and draped, maximum sterile barrier technique was used throughout. Local anesthesia provided with 1% lidocaine. Due to the painful nature of the procedure, patient received split doses of intravenous fentanyl and versedfrom the IR nurse while pulse, pressure, and oxygen saturation werecontinuously monitored. Right IJ accessed with micropuncture technique under U/S guidance and a4Fr sheath placed. 14.5Fr 28cm HD catheter tunneled from upper chest to neckentry site. 4Fr sheath exchanged over guide wire for peel away sheath. Catheterplaced via peel away sheath with tip positioned in RA under fluoroscopicguidance. Both catheter ports aspirate and flush readily. Neck incision closed withliquid adhesive. Medications: Fentanyl 125mcg IV, Versed 2.5mg IV, 1% Lidocaine <10ccs subcutaneous. Fluoro Time: 0.1mins Est Blood Loss: <5cc. Complications: No immediate. IMPRESSION Impression: Tunneled HD catheter placement via R IJ, ready for use. Resident/Fellow: None. Attending: Dr. Seng Lange performed this procedure. 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 Type II or unspecified type diabetes mellitus with renal manifestations, not stated as uncontrolled Uremia Renal failure, unspecified documented in this encounter Administered Medications Inactive Administered Medications - up to 3 most recent administrations Medication Order MAR Action Action Date Dose Rate Site BUpivacaine-EPINEPHrine 0.25 %-1:200,000 injection 20 mL 20 mL (50 mg), Local Infiltration, ONCE, 1 dose, On Thu01/09/15 at 0730, For use in Interventional Radiology (IR) only for procedural sedation with direct provider supervision and verbal order., Angio/IR (Intra-Procedure), Routine Given 01/09/2015 8:25 AM EDT 20 mLs fentaNYL 50 mcg/mL multi-dose injection 25-50 mcg, Intravenous, EVERY 5 MIN PRN, Starting on Thu01/09/15 at 0711, Until Thu01/09/15 at 0833, Pain, per unit protocol, For use in Interventional Radiology (IR) only for procedural sedation with direct provider supervision and verbal order., Angio/IR (Intra-Procedure), Routine Given 01/09/2015 8:21 AM EDT 25 mcg Given 01/09/2015 8:15 AM EDT 25 mcg Given 01/09/2015 8:08 AM EDT 25 mcg lidocaine (XYLOCAINE) 10 mg/mL (1 %) injection 10 mg 10 mg, Subcutaneous, ONCE, 1 dose, On Thu01/09/15 at 0730, For use in Interventional Radiology (IR) only for procedural sedation with direct provider supervision and verbal order., Angio/IR (Intra-Procedure), Routine Given 01/09/2015 8:18 AM EDT 10 mg midazolam (PF) (VERSED) 1 mg/mL multi-dose injection 0.5-1 mg 0.5-1 mg, Intravenous, EVERY 5 MIN PRN, Starting on Thu01/09/15 at 0711, Until Tu/7/15 at 0833, Anxiety, per unit protocol, For use in Interventional Radiology (IR) only for procedural sedation with direct provider supervision and verbal order., Angio/IR (Intra-Procedure), Routine Given 01/09/2015 8:21 AM EDT 0.5 mg Given 01/09/2015 8:15 AM EDT 0.5 mg Given 01/09/2015 8:08 AM EDT 0.5 mg sodium chloride 0.9 % flush 5 mL 5 mL, Intravenous, EVERY 12 HOURS, First dose on Thu01/09/15 at 0730, Until Discontinued, Day of Surgery (Day of Procedure), Routine Given 01/09/2015 7:30 AM EDT 5 mLs documented in this encounter Care Teams Internal Grinder Tender Relationship Specialty Start Date End Date Urbano Denis DO [address] [place] [address] PCP - General 09/03/12 03/17/22 documented as of this encounter
--- OUTSIDE RECORDS SUMMARY | 2024-02-14 11:38 | XMS_ITS | Encounter Summary ---
Author Organization [facility] [place] [address] Care Team Providers Care Manager Med Surg Name Role Phone AdeelUrbano boland Primary Care Provider Encounter Details Date Type Department Care Team (Late st Contact Info) Description 06/20/2015 Multidisciplinary Ca re Committee [place] [address] Ellen Foote RN Social History Tobacco Use [...] Progress Notes * Ellen Bauer RN - 06/21/2015 8:27 AM EST Patient was discussed in the multidiciplinary care meeting today, Mr. Bolden is now to proceed with the evaluation process for Kidney transplant. He have seen the [facility];Dr. Marcelo and have recommended not to treat his Hepatitis C. He will be treated after he received a transplant, the team have agreed with the recommendation. His DSE was also.completed and is normal. documented in this encounter Plan of Treatment Upcoming Encounters Date Type Department Care Team (Late st Contact Info) Description 04/15/2024 10:00 AM EDT Hospital Encounter [place] [address] Arrived documented as of this encounter Visit Diagnoses Not on filedocumented in this encounter Care Teams Manager Med Surg Relationship Specialty Start Date End Date Urbano Denis DO [address] [place] [address] PCP - General 09/03/12 03/17/22 documented as of this encounter
--- OUTSIDE RECORDS SUMMARY | 2024-02-14 11:38 | XMS_ITS | Encounter Summary ---
Author Organization [facility] [place] [address] Care Team Providers Care Emts Name Role Phone AdeelUrbano toscano Primary Care Provider Encounter Details Date Type Department Care Team (Late st Contact Info) Description 05/04/2015 Orders [place] [phone] Tulio Marcelo MD [facility] [place] [address] Chronic hepatitis C without hepatic coma Social [...] EDT Hospital Encounter Non-[place] [phone] Arrived documented as of this encounter Results * Miscellaneous Lab request (05/16/2015 4:33 PM EST) Label Request received in lab. BENEDICT COOK Blood specimen (specimen) 05/16/2015 4:33 PM EST 05/16/2015 4:57 PM EST Narrative Resulting Agency Comment Spec In Lab Tulio Marcelo MD LAB SEND OUT ORDERA BLES Performing Organization Address [facility] Co de Phone Number [facility] * Hepatitis C RNA, quantitative, PCR (05/16/2015 4:33 PM EST) HCV Viral Load 471,245 IU/mL [facility] HCV Viral Load Result: [id number] IU/mL Indication for Study: Hepatitis C Infection Analysis: A quantitiative real time reverse transcriptase PCR assay was performed on extracted viral RNA for the purpose of quantification. Sample: plasma (1 mL minimum volume) Method: Kirsten June TaqMAN 48 HCV Linear Range: 15 IU/mL - 100,000,000IU/mL (95% CI) Note: This assay is being performed in the [facility] Molecular Pathology Laboratory. Gibson Good, Ph.D. Director, Molecular Pathology [facility] Comment: [VERIFIED DATE]05.18.15 Verified By:Xiomy Gupta (Electronic Signature) Blood specimen (specimen) 05/16/2015 4:33 PM EST 05/18/2015 8:13 AM EST Narrative Resulting Agency Comment Spec In Lab Tulio Marcelo MD MOLECULAR ORDERABLE S Performing Organization Address [facility] de Phone Number [facility] * Prothrombin Time (05/16/2015 4:33 PM EST) Prothrombin Time 13.7 12.0 - 15.0 sec [facility] Comment: Transfusion Committee Guidelines: INR less than 2.0, PTT less than OR equal to 43.5 seconds, or Fibrinogen greater than or equal to 100 mg/dl indicate adequate procoagulant activity for hemostasis in patients without underlying bleeding disorders. International Normalization Ratio 1.0 0.9 - 1.1 [facility] Blood specimen (specimen) 05/16/2015 4:33 PM EST 05/16/2015 4:57 PM EST Narrative Resulting Agency Comment Spec In Lab Tulio Marcelo MD HEMATOLOGY ORDERABL ES Performing Organization Address [facility]/ZIP Co de Phone Number [facility] * (ABNORMAL) Comprehensive metabolic panel (non-fasting) (05/16/2015 4:33 PM EST) [facility] Glucose 115 65 - 199 mg/dL [facility] Comment:Diabetes: >=200 mg/d L plus symptoms Blood Urea Nitrogen 22(H) 10 - 20 mg/dL [facility] Creatinine 4.29(H) 0.80 - 1.50 mg/dL [facility] Comment: Please note that the pediatric reference intervals supplied above were not validated at [facility]. Results from pediatric patients should be interpreted in conjunction to the patient's age, height and muscle mass. Sodium 141 135 - 145 mmol/L [facility] Potassium 4.4 3.5 - 5.0 mmol/L [facility] Comment: Please note: ??Patients with WBC >100,000 may have falsely elevated Potassium levels. ??For accurate Potassium quantification in these patients send serum separator tube (gold top) for subsequent determinations. ??Contact the Clinical Chemistry Laboratory if there are any questions. Chloride 98 98 - 107 mmol/L [facility] Carbon Dioxide 30 22 - 31 mmol/L [facility] Anion Gap 13 5 - 15 mmol/L [facility] Calcium 9.0 8.5 - 10.5 mg/dL [facility] Protein, Total 7.5 6.1 - 8.0 gm/dL [facility] Albumin 4.0 3.2 - 5.2 gm/dL [facility] Aspartate Aminotransferase 19 0 - 39 unit/L [facility] Alanine Aminotransferase 14 0 - 55 unit/L [facility] Alkaline Phosphatase 72 40 - 120 unit/L [facility] Bilirubin, Total 0.7 0.2 - 1.3 mg/dL [facility] Bilirubin, Direct 0.1 0.0 - 0.3 mg/dL [facility] MILLENNI[facility] Est Glomerular Filtration Rate 14(L) >=60 [facility] Comment: This estimated GFR [...] the following links into your internet browser. [email or web address] Blood specimen (specimen) 05/16/2015 4:33 PM EST 05/16/2015 4:57 PM EST Narrative Resulting Agency Comment Spec In Lab Tulio Marcelo MD CHEMISTRY ORDERABLE S [facility] documented in this encounter Visit Diagnoses Diagnosis Chronic hepatitis C without hepatic coma documented in this encounter Care Teams Emts Relationship Specialty Start Date End Date Urbano Denis DO [address] [place] [address] PCP - General 09/03/12 03/17/22 documented as of this encounter
--- OUTSIDE RECORDS SUMMARY | 2024-02-14 11:38 | XMS_ITS | Encounter Summary ---
Author Organization [facility] [place] [address] Care Team Providers Care Structural Manager Name Role Phone Urbano Denis DO Primary Care Provider Encounter Details Date Type Department Care Team (Late st Contact Info) Description 01/09/2015 Telephone [place] [phone] Kandace Houston RN Social History Tobacco Use Types Packs/Day Years Used Date Smoking Tobacco: Former Sex and Gender Information Value Date Recorded Sex Assigned at Not on file Gender Identity Not on file Sexual Orientation Not on file documented as of this encounter Miscellaneous Notes * Telephone Encounter - Kandace Houston RN - 01/09/2015 2:19 PM EDT Office of Care Management/CCM/Dialysis initiation O. Spoke with patient's . He is sleeping after the TDC placement. Plan for first dialysis treatment: [facility] Mon-Wed-Fri at 1430 (await start date) Access: TDC placed 01/09/15 Transportation Plans: Insurance clearance on: 01/09/15 Plan: Called [facility] today-no answer Will call tomorrow AM to get start date for dialysis. documented in this encounter Plan of Treatment Upcoming Encounters Date Type Department Care Team (Late st Contact Info) Description 04/15/2024 10:00 AM EDT Hospital Encounter Non[place] [address] Arrived documented as of this encounter Visit Diagnoses Not on filedocumented in this encounter Care Teams Structural Manager Relationship Specialty Start Date End Date Urbano Denis DO [address] [place] [address] PCP - General 09/03/12 03/17/22 documented as of this encounter
--- OUTSIDE RECORDS SUMMARY | 2024-02-14 11:38 | XMS_ITS | Encounter Summary ---
Author Organization [facility] [place] [address] Care Team Providers Care Scaleman Name Role Phone Urbano Denis DO Primary Care Provider Encounter Details Date Type Department Care Team (Late st Contact Info) Description 01/15/2015 Orders Only [place] [address] Que Amaro MD [facility] [place] [address] Social History Tobacco Use Types Packs/Day Years [...] AM EDT Hospital Encounter Non-Invasive [place] [address] Arrived documented as of this encounter Visit Diagnoses Not on filedocumented in this encounter Care Teams Scaleman Relationship Specialty Start Date End Date Urbano Denis DO [address] [place] [address] PCP - General 09/03/12 03/17/22 documented as of this encounter
--- OUTSIDE RECORDS SUMMARY | 2024-02-14 11:38 | XMS_ITS | Encounter Summary ---
[place] [address] Care Team Providers Care Waitstaff Captain Name Role Phone AdeelUrbano toscano Primary Care Provider Encounter Details Date Type Department Care Team (Late st Contact Info) Description 05/02/2015 1:58 PM EDT Anesthesia Event [place] [address] Zohra Beltran, INBOUND TELEMARKETER [address] [facility] [address] [place] [address] Anesthesia Record Procedure Summary Procedure Name Responsible Anesthesiologist Anesthesia Start Time Anesthesia Stop Time AV FISTULA CREATION, DIRECT HEMODIALYSIS, ANY SITE, EG ASHWINI FISTULA UPPER EXTREMITY (WRVU 11.9) (Left: Arm) Events No events on file. Meds * Agents No agents on file. * Blood No blood administrations on file. Lines, Drains, and Airways Type Details Placement Removal Hemodialysis AV Access Devic e - Single Lumen 02/02/19; 1031; upper arm, left 02/02/19 1031 by Sharon Ruth RN Incision 01/31/22; 1210; Righ t; chest 01/31/22 1210 by Steffen Mora, RN Do Not Use This Location 09/14/22; 2224; LUE; AV fistula 09/14/222223 by Flamand, Luma W, RN documented in this encounter Social History Tobacco Use Types Packs/Day Years Used Date Smoking Tobacco: Former Sex and Gender Information Value Date Recorded Sex Assigned at Not on file Gender Identity Not on file Sexual Orientation Not on file documented as of this encounter OR Notes * Anesthesia Preprocedure Evaluation - Dyan Starr MD - 04/29/2015 9:23 PM EDT Pre-Anesthesia Evaluation for: Cody Bolden a 64 y.o. male. Procedure(s): AV FISTULA CREATION, DIRECT HEMODIALYSIS, ANY SITE, EG ASHWINI FISTULA UPPER EXTREMITY Patient Active Problem List Diagnosis ??? ESRD (end stage renal disease) ??? DM type 2 (diabetes mellitus, type 2) ??? Hypertension ??? DJD (degenerative joint disease) ??? Hematuria No past medical history on file. No past surgical history on file. History Substance Use Topics ??? Smoking status: Former Smoker ??? Smokeless tobacco: Not on file ??? Alcohol Use: Not on file History Drug Use Not on file No Known Allergies Medications: MAR and/or home medications have been reviewed. Physical Exam: There were no vitals filed for this visit. There is no weight on file to calculate BMI. Anesthesia Physical Exam Anesthesia Plan: ASA 4 MAC, with a(n) intravenous induction 64yo man 96kg IBW 80kg c history of ESRD to OR c Dr. Amaro for LUE fistula creation. THIS IS A PRELIMINARY NOTE BASED ON CHART REVIEW PMHx: HepC s cirrhosis, CVA c residual R side numbness, ARIELLA, IDDM Echo December 2014 - EF 65%, small PFO, mild LVH, borderline LV dilation, no WMAs, diastolic dysfunction, trace AI, mild TR, mild LA dilation Liver ultrasound c fatty liver s focal mass. No stigmata of liver disease, HIV negative, HAV negative, nonimmunized against HBV, Can have APAP 2g daily Denies: CAD, SOB, chest tightness or pressure Good exercise tolerance PMH negative for RAD, excessive bleeding No URI symptoms. No uncontrolled GERD NPO No previous anesthetic complications. Plan MAC Adequate IV access Standard ASA monitors DYAN STARR MD [address] Region - Other Informed Consent: PAT Staff Note documented in this encounter Plan of Treatment Upcoming Encounters Date Type Department Care Team (Late st Contact Info) Description 04/15/2024 10:00 AM EDT Hospital Encounter Non-Invasive [place] [address] Arrived documented as of this encounter Visit Diagnoses Not on filedocumented in this encounter Care Teams Waitstaff Captain Relationship Specialty Start Date End Date Urbano Denis DO [address] [place] [address] [address] [place] [address] PCP - General 09/03/12 03/17/22 documented as of this encounter
--- OUTSIDE RECORDS SUMMARY | 2024-02-14 11:38 | XMS_ITS | Encounter Summary ---
Author Organization [facility] [place] [address] Care Team Providers Care Bond Manager Name Role Phone Urbano Denis DO Primary Care Provider Encounter Details Date Type Department Care Team (Late st Contact Info) Description 05/14/2015 Abstract [place] [address] Aurora Kessler Social History Tobacco Use Types [...] AM EDT Hospital Encounter Non-Invasive [place] [address] Arrived documented as of this encounter Visit Diagnoses Not on filedocumented in this encounter Care Teams Bond Manager Relationship Specialty Start Date End Date Urbano Denis DO [address] [place] [address] PCP - General 09/03/12 03/17/22 documented as of this encounter
--- OUTSIDE RECORDS SUMMARY | 2024-02-14 11:38 | XMS_ITS | Encounter Summary ---
Author Organization [facility] [place] [address] Care Team Providers Care Passenger Conductor Name Role Phone Urbano Denis DO Primary Care Provider Encounter Details Date Type Department Care Team (Late st Contact Info) Description 05/23/2015 Notes Only [place] [address] Anabella Bright Social History Tobacco Use Types [...] encounter Progress Notes * Anabella Bright - 05/23/2015 12:38 PM EST Transplant Internet Architect Note: Verification of prescription drug coverage - [employer] part D, sponsored by patient's mcc plan. Monthly medication costs will vary greatly depending upon whether or not Valcyte is needed after transplant. They are facing $57.33 per month if Valtrex is needed and up to $837.33 per month if Valcyte is needed. A copy of the information has been mailed to the patient. He has my contact information to call and discuss any concerns. Due to this being an employer/retiree sponsored part D plan, the traditional coverage periods do not apply - there is no donut hole under this plan. Drug Dose/Form # for 30 Days Copay 30 Day Supply PA Required? Mail Order Available Copay 90 Day Supply Prograf 1mg cap 180 caps $0 Paid by Part B and supplement $ Cellcept 250 mg cap 180 caps $0 Paid by Part B and supplement $ Myfortic 360 mg tab 120 tabs $ $ Bactrim SS tab 30 tabs $5 $ Mepron 750 mg/5ml 150 ml $ $ Diltiazem CD 120 mg tablet 30 tabs $5 $ K Phos Original 500 mg tab 120 tabs $12.33 $ Magnesium Gluconate 500 mg tab 120 tabs $20 $10-$25 OVER THE COUNTER, PEREZ AT LOCAL PHARMACY $ Nexium 40 mg cap 30 tabs $5 generic $ Nystatin 100K units/ml 600 ml $5 $ Valcyte 450 mg tab 60 tabs $785.00 generic $ Valtrex 500 mg tab 60 tabs $5.00 $ documented in this encounter Plan of Treatment Upcoming Encounters Date Type Department Care Team (Late st Contact Info) Description 04/15/2024 10:00 AM EDT Hospital Encounter Non-[place] [address] Arrived documented as of this encounter Visit Diagnoses Not on filedocumented in this encounter Care Teams Passenger Conductor Relationship Specialty Start Date End Date Urbano Denis DO [address] [facility] [place] [address] PCP - General 09/03/12 03/17/22 documented as of this encounter
--- OUTSIDE RECORDS SUMMARY | 2024-02-14 11:38 | XMS_ITS | Encounter Summary ---
Author Organization [facility] Address [facility] [place] [address] Care Team Providers Care Dental Instrument Maker Name Role Phone Urbano Denis DO Primary Care Provider Encounter Details Date Type Department Care Team (Late st Contact Info) Description 01/04/2015 Telephone [place] [address] Urbano Loya MD [facility] [place] [address] Social History Tobacco Use Types Packs/Day Years Used Date Smoking Tobacco: Former Sex and Gender Information Value Date Recorded Sex Assigned at Not on file Gender Identity Not on file Sexual Orientation Not on file documented as of this encounter Miscellaneous Notes * Telephone Encounter - Urbano Loya MD - 01/04/2015 4:36 PM EDT Spoke with Dr. Lewis from nephrology at [facility]. He has been seeing Mr. Lewis for a few months and his Cr has been steadily rising to the mid 5s. Mr. Bolden is developing some AM nausea and Dr. Lewis is concerned that he is becoming uremic. He would like me to arrange dialysis catheter placement here and dialysis initiation at [facility]. I called Mr. Lewis who reports that he was hospitalized 2 months ago for severe hypertension and several of his medications were changed. His Eliquis was stopped. He does endorse fatigue and AM nauseaand is interested in starting dialysis. He is also being evaluated for a kidney transplant in [place]. Osmanykatie order renal function testing and hep B serologies to be done at [facility] tomorrow and have contacted IR for dialysis catheter placement. They can take him Thursday morning. I will contact dialysis in the morning to confirm that they have an opening to take a new dialysis patient. documented in this encounter Plan of Treatment Upcoming Encounters Date Type Department Care Team (Late st Contact Info) Description 04/15/2024 10:00 AM EDT Hospital Encounter Non[place] [address] Arrived documented as of this encounter Results * IR dialysis access (01/09/2015 8:40 AM EDT) Anatomical Region Laterality Modality Abdomen X-Ray Angiograph y 01/09/2015 8:40 AM EDT Impressions 01/09/2015 3:44 PM EDT Impression: Tunneled HD catheter placement via R IJ, ready for use. Resident/Fellow: None. Attending: Dr. Seng Lange performed this procedure. Narrative 01/09/2015 3:44 PM EDT VIR PROCEDURE NOTE Procedure: Tunneled HD catheter placement. ACC#: [id number] Indication for Procedure: 64 y.o. male with Stage 5 CKD who presents for placement of a tunneled pheresis catheter for dialysis. Per Dr. Loya 01/04/15, Spoke with Dr. Lewis from nephrology at [facility]. He has been seeing [Yuan] for a few months and his Cr has been steadily rising to the mid 5s. Mr. Bolden is developing some AM nausea and Dr. Lewis is concerned that he is becoming uremic. He would like me to arrange dialysis catheter placement here and dialysis initiation at [facility]. Procedure events and findings: After obtaining [...] NOTE Procedure: Tunneled HD catheter placement. ACC#: [id number] Indication for Procedure: 64 y.o. male with Stage 5 CKD who presents for placement of a tunneled pheresis catheter for dialysis. Per Dr. Loya 01/04/15, Spoke with Dr. Lewis from nephrology at [facility]. Bridgett been seeing Mr. Hinojosa] for a few months and his Cr has been steadily risingto the mid 5s. Mr. Bolden is developing some AM nausea and Dr. Lewis isconcerned that he is becoming uremic. He would like me to arrange dialysiscatheter placement here and dialysis initiation at [facility]. Procedure events and findings: After obtaining [...] diabetes mellitus with stage 5 chronic kidney disease- Primary Type II or unspecified type diabetes mellitus with renal manifestations, not stated as uncontrolled Uremia Renal failure, unspecified Type 2 diabetes mellitus with stage 5 chronic kidney disease Type II or unspecified type diabetes mellitus with renal manifestations, not stated as uncontrolled Uremia Renal failure, unspecified documented in this encounter Care Teams Dental Instrument Maker Relationship Specialty Start Date End Date Urbano Denis DO [address] [place] [address] PCP - General 09/03/12 03/17/22 documented as of this encounter
--- OUTSIDE RECORDS SUMMARY | 2024-02-14 11:38 | XMS_ITS | Encounter Summary ---
Author Organization [facility] [place] [address] Care Team Providers Care Radiology Nurse Name Role Phone Adeel Urbano KIRBY Primary Care Provider Encounter Details Date Type Department Care Team (Latest Contact Info) Description 05/16/2015 4:10 PM EST Laboratory Appointment Lab [address] [place] [phone] Hypertension; Proteinuria; DM type 2 (diabetes mellitus, type 2); CKD (chronic kidney disease) stage 3, GFR 30-59 ml/min; Hyperparathyroidism ; H/O hematuria; Type 2 diabetes mellitus with stage 5 chronic kidney disease; Uremia; Chronic hepatitis C without hepatic coma Social [...] EDT Hospital Encounter Non-Invasive [place] [phone] Arrived Pending Results Name Type Priority Associated Diagnoses Date /Time Hepatitis C genotype Lab Routine Chronic hepatitis C without hepatic coma 05/16/2015 4:20 PM EST documented as of this encounter Procedures Procedure Name Priority Date/Time Associated Diagnosis Comments MISCELLANEOUS LAB REQUEST Routine 05/16/2015 4:33 PM EST Chronic hepatitis C without hepatic coma HCV GENOTYPE Routine 05/16/2015 4:33 PM EST Chronic hepatitis C without hepatic coma HEMOGRAM Routine 05/16/2015 4:33 PM EST Chronic hepatitis C without hepatic coma DIFFERENTIAL, AUTOMATED Routine 05/16/2015 4:33 PM EST Chronic hepatitis C without hepatic coma HEPATITIS C GENOTYPE Routine 05/16/2015 4:33 PM EST Chronic hepatitis C without hepatic coma HEPATITIS C RNA, QUANTITATIVE, PCR Routine 05/16/2015 4:33 PM EST Chronic hepatitis C without hepatic coma PROTHROMBIN TIME Routine 05/16/2015 4:33 PM EST Chronic hepatitis C without hepatic coma CBC (WITH DIFF) Routine 05/16/2015 4:33 PM EST Chronic hepatitis C without hepatic coma COMPREHENSIVE METABOLIC PANEL Routine 05/16/2015 4:33 PM EST Chronic hepatitis C without hepatic coma documented in this encounter Results * HCV Genotype (05/16/2015 4:33 PM EST) HCV Genotype Indication for study Hepatitis C [...] of HCV genotype was carried out using Xueersi-8 detection system. Method: Plasma was initially subjected to quantitative RT-PCR using the Kirsten JUNE Ampliprep/JUNE Taqman HCV assay. The HCV genotyping was carried out using Genmark eSensor XT-8 detection system that targets 5? -untranslated region of the HCV genome. The amplicon from the Kirsten assay served as a template for the nested PCR followed by a direct analysis on the electrochemical Proterroensor XT-8 detection system for the identification of HCV genotypes. The genotypes/subtypes detected by this method include 1a, 1b, 2a/c, 2b, 3, 4, 5 and 6a/b. This test was validated and its performance characteristics determined by the Molecular Pathology Laboratory at [facility]. It has not been cleared or approved by the FDA. This laboratory is regulated under CLIA as qualified to perform high-complexity testing. This test is used for clinical purposes. It should not be regarded as investigational or for research. References: Klerosettas RM, Rubén DJ, Kelton R, Gauri SD. Evolving epidemiology of hepatitis C virus in the [place]. Clin Infect Dis. 2012; 55:S3-9. Terell F, Sudhir Maldonado. Treating hepatitis C: current standard of care and emerging direct-acting antiviral agents. J Viral Hepat. 2012; 19:449-64. Amrita MH, Elias EB. Prevalence and treatment of hepatitis C virus genotypes 4, 5, and 6. Clin Gastroenterol Hepatol. 2005; 3:B03-I554. Miner JS, Aspinall E, Sole D, Friedman AJ, Richy ME. Current and emerging antiviral treatments for hepatitis C infection. Br J Clin Pharmacol. 2012 Feb 13. [Epub ahead of print] [facility] PE[facility]OCKIUM Comment: [VERIFIED DATE]05.23.15 Verified By:Fatemeh Garcia (Electronic Signature) Blood specimen (specimen) 05/16/2015 4:33 PM EST 05/18/2015 8:13 AM EST Narrative Resulting Agency Comment Spec In Lab Tulio Marcelo MD HEMATOLOGY ORDERABL ES BENEDICT COOK * Differential, Automated (05/16/2015 4:33 PM EST) Neutrophil % 71.7 % [facility] Neutrophil Absolute 5.29 1.50 - 6.30 x10(3)/mcL [facility] MILLENNIUM Lymph % 16.1 % [facility]ILLENNIUM Lymphocytes Abs 1.2 1.0 - 3.6 x10(3)/mcL [facility] Monocyte % 6.5 % [facility]ILLENNI[facility] Monocyte Abs 0.5 0.2 - 1.0 x10(3)/mcL [facility] MILLENNIUM Eos % 4.9 % [facility] Eosinophils Abs 0.4 0.0 - 0.5 x10(3)/mcL [facility] MILLENNIUM Basophil % 0.5 % [facility] MILLENNIUM Baso Absolute 0.0 0.0 - 0.2 x10(3)/mcL [facility] MILLENNIUM Immature Gran % 0.30 % [facility] MILLENNIUM Comment: Immature granulocytes(IG's)percentage and absolute count will include metamyelocytes, myelocytes, and promyelocytes. Blood smears from CBCs yielding IG's will be scanned manually for concordance. If this scan disagrees with the automated IG or if promyelocytes are noted, a manual differential will be performed. Immature Gran Absolute 0.02 0.00 - 0.05 x10(3)/mcL [facility]ERNER MILLENNIUM Blood specimen (specimen) 05/16/2015 4:33 PM EST 05/16/2015 4:57 PM EST Narrative Resulting Agency Comment Spec In Lab Tulio Marcelo MD HEMATOLOGY ORDERABL ES CERNER MILLENNIUM * (ABNORMAL) Hemogram (05/16/2015 4:33 PM EST) White Blood Cell 7.4 4.0 - 10.0 x10(3)/mc L [facility] MILLENNIUM Red Blood Cell 3.72(L) 4.63 - 6.08 x10(6)/mc L [facility] MILLENNIUM Hemoglobin 11.5(L) 13.7 - 17.5 gm/dL [facility] MILLENNIUM Hematocrit 34.4(L) 40.0 - 51.0 % CERNER MILLENNIUM Mean Cell Volume 92.5(H) 79.0 - 92.0 fL [facility]ERN[facility] MILLENNIUM Mean Cell Hemoglobin 30.9 25.6 - 32.2 pg [facility] MILLENNI[facility] Mean Cell Hemoglobin Concentration 33.4 32.0 - 36.5 gm/dL CERNER MILLENNIUM Platelet 228 145 - 370 x10(3)/mc L [facility] RDW Standard Deviation 50.0(H) 35.0 - 46.0 fL [facility] RDW coefficient of variation 15.0(H) 10.9 - 14.4 % [facility] Mean Platelet Volume 9.9 9.0 - 12.0 fL [facility] Blood specimen (specimen) 05/16/2015 4:33 PM EST 05/16/2015 4:57 PM EST Narrative Resulting Agency Comment Spec In Lab Tulio Marcelo MD HEMATOLOGY ORDERABL ES Performing Organization Address [facility] Co de Phone Number [facility] * Miscellaneous Lab request (05/16/2015 4:33 PM EST) Label Request received in lab. [facility] Blood specimen (specimen) 05/16/2015 4:33 PM EST 05/16/2015 4:57 PM EST Narrative Resulting Agency Comment Spec In Lab Tulio Marcelo MD LAB SEND OUT ORDERA BLES Performing Organization Address [facility] Co de Phone Number [facility] * Hepatitis C RNA, quantitative, PCR (05/16/2015 4:33 PM EST) HCV Viral Load 471,245 IU/mL [facility] HCV Viral Load Result: [id number] IU/mL Indication for Study: Hepatitis C Infection Analysis: A quantitiative real time reverse transcriptase PCR assay was performed on extracted viral RNA for the purpose of quantification. Sample: plasma (1 mL minimum volume) Method: Kirsten June TaqMAN 48 HCV Linear Range: 15 IU/mL - 100,000,000IU/mL (95% CI) Note: This assay is being performed in the [facility] Molecular Pathology Laboratory. Gibson Good, Ph.D. Director, Molecular Pathology [facility] Comment: [VERIFIED DATE]05.18.15 Verified By:Xiomy Gupta (Electronic Signature) Blood specimen (specimen) 05/16/2015 4:33 PM EST 05/18/2015 8:13 AM EST Narrative Resulting Agency Comment Spec In Lab Tulio Marcelo MD MOLECULAR ORDERABLE S Performing Organization Address [facility] de Phone Number [facility]EDICT COOK * Prothrombin Time (05/16/2015 4:33 PM EST) Prothrombin Time 13.7 12.0 - 15.0 sec [facility]ERNER MILLENNIUM Comment: Transfusion Committee Guidelines: INR less than 2.0, PTT less than OR equal to 43.5 seconds, or Fibrinogen greater than or equal to 100 mg/dl indicate adequate procoagulant activity for hemostasis in patients without underlying bleeding disorders. International Normalization Ratio 1.0 0.9 - 1.1 [facility] MILLENNIUM Blood specimen (specimen) 05/16/2015 4:33 PM EST 05/16/2015 4:57 PM EST Narrative Resulting Agency Comment Spec In Lab Tulio Marcelo MD HEMATOLOGY ORDERABL ES Performing Organization Address [facility] Phone Number BENEDICT COOK * (ABNORMAL) Comprehensive metabolic panel (non-fasting) (05/16/2015 4:33 PM EST) Glucose 115 65 - 199 mg/dL [facility]ERNER MILLENNIUM Comment:Diabetes: >=200 mg/d L plus symptoms Blood Urea Nitrogen 22(H) 10 - 20 mg/dL [facility]ERNER MILLENNIUM Creatinine 4.29(H) 0.80 - 1.50 mg/dL [facility] MILLENNIUM Comment: Please note that the pediatric reference intervals supplied above were not validated at [facility]. Results from pediatric patients should be interpreted [...] the following links into your internet browser. [email or web address] Blood specimen (specimen) 05/16/2015 4:33 PM EST 05/16/2015 4:57 PM EST Narrative Resulting Agency Comment Spec In Lab Tulio Marcelo MD CHEMISTRY ORDERABLE S [facility] MILLENNIUM documented in this encounter Visit Diagnoses Diagnosis Hypertension Unspecified essential hypertension Proteinuria Type 2 diabetes mellitus with stage 5 chronic kidney disease Type II or unspecified type diabetes mellitus with renal manifestations, not stated as uncontrolled CKD (chronic kidney disease) stage 3, GFR 30-59 ml/min Chronic kidney disease, Stage III (moderate) Hyperparathyroidism Hyperparathyroidism, unspecified H/O hematuria Personal history of other disorder of urinary system Uremia Renal failure, unspecified Chronic hepatitis C without hepatic coma documented in this encounter Care Teams Radiology Nurse Relationship Specialty Start Date End Date Urbano Denis DO [address] [place] [address] PCP - General 09/03/12 03/17/22 documented as of this encounter
--- OUTSIDE RECORDS SUMMARY | 2024-02-14 11:38 | XMS_ITS | Encounter Summary ---
Author Organization Formerly [facility] [place] [address] Care Team Providers Care Mechanical Project Manager Name Role Phone Urbano Denis DO Primary Care Provider [phone] Encounter Details Date Type Department Care Team (Late st Contact Info) Description 01/16/2015 [place] [id number] Que Amaro MD [facility] [place] [address] ESRD (end stage renal disease) Social History [...] AM EDT Hospital Encounter [place] [phone] Arrived documented as of this encounter Visit Diagnoses Diagnosis ESRD (end stage renal disease) End stage renal disease documented in this encounter Care Teams Mechanical Project Manager Relationship Specialty Start Date End Date Urbano Denis DO [address] [place] [address] PCP - General 09/03/12 03/17/22 documented as of this encounter
--- OUTSIDE RECORDS SUMMARY | 2024-02-14 11:38 | XMS_ITS | Encounter Summary ---
Author Organization [place] [address] Care Team Providers Care Nude Model Name Role Phone AdeelUrbano boland Primary Care Provider Encounter Details Date Type Department Care Team (Late st Contact Info) Description 04/26/2014 Orders [place] [address] Joseph Cortés MD [facility] [place] [address] Social History Tobacco Use Types Packs/Day Years [...] AM EDT Hospital Encounter Non-[place] [address] Arrived documented as of this encounter Procedures Procedure Name Priority Date/Time Associated Diagnosis Comments FILM LIBRARY STORAGE ONLY CT HEAD Routine 04/26/2014 11:04 AM EDT documented in this encounter Results * Film Library- Storage only CT Head (04/26/2014 11:04 AM EDT) Anatomical Region Laterality Modality Head Other 04/26/2014 11:0 4 AM EDT Narrative 09/20/2014 11:10 AM EDT This is a Non-reportable exam Procedure Note MEÑO, UNSIGNED REPORT - 09/20/2014 This is a Non-reportable exam Joseph Cortés MD [facility] FILM LIBRARY O RDERABLES documented in this encounter Visit Diagnoses Not on filedocumented in this encounter Care Teams Nude Model Relationship Specialty Start Date End Date Urbano Denis DO [address] [place] [address] PCP - General 09/03/12 03/17/22 documented as of this encounter
--- OUTSIDE RECORDS SUMMARY | 2024-02-14 11:38 | XMS_ITS | Encounter Summary ---
Author Organization Formerly [facility] [place] [address] Care Team Providers Care Skoog Patching Machine Operator Name Role Phone Urbano Denis DO Primary Care Provider [phone] Reason for Visit * Reason Onset Date Comments Medication Refill 02/21/2014 Encounter Details Date Type Department Care Team (Late st Contact Info) Description 02/21/2014 Refill [place] [address] Urbano Loya MD [facility] [place] [address] Social History Tobacco Use Types Packs/Day Years [...] EDT Hospital Encounter Non-Invasive [place] [phone] Arrived documented as of this encounter Visit Diagnoses Not on filedocumented in this encounter Care Teams Skoog Patching Machine Operator Relationship Specialty Start Date End Date Urbano Denis DO [address] [place] [address] PCP - General 3/1/13 9/12/22 documented as of this encounter
--- OUTSIDE RECORDS SUMMARY | 2024-02-14 11:38 | XMS_ITS | Encounter Summary ---
Author Organization Formerly [facility] [place] [address] Care Team Providers Care Maple Syrup Maker Name Role Phone Urbano Denis DO Primary Care Provider Encounter Details Date Type Department Care Team (Late st Contact Info) Description 05/29/2015 11:00 AM EST Office Visit [place] [address] Jennifer Amaro MD [facility] [place] [address] A-V fistula Social History Tobacco Use Types Packs/Day Years [...] Time Taken Comments Blood Pressure 140/78 05/29/2015 11:25 AM EST Pulse 64 05/29/2015 11:25 AM EST Temperature 36.4 ??C (97.5 ??F) 05/29/2015 1 1:25 AM EST Respiratory Rate 14 05/29/2015 11:2 5 AM EST Oxygen Saturation - - Inhaled Oxygen Concentration - - Weight 102.2 kg (225 lb 6.4 oz) 015 11:25 AM EST Height 176.5 cm (5' 9.5) 05/29/2015 11 :25 AM EST Body Mass Index 32.81 05/29/2015 11:25 AM EST documented in this encounter Progress Notes * Jennifer Amaro MD - 05/29/2015 11:35 AM EST Follow-up: Transplant Clinic Date: 05/29/2015 Patient: Cody Bolden Date of Transplant: Transplant Type: Transplant Surgeon: Visit Vitals: BP 140/78 mmHg Pulse 64 Temp(Src) 36.4 ??C (97.5 ??F) (Oral) Resp 14 Ht 176.5cm (5' 9.5) Wt 102.241 kg (225 lb 6.4 oz) BMI 32.82 kg/m2 Diagnosis: No diagnosis found. Allergies: Review of patient's allergies indicates no known allergies. Immunizations: Most Recent Immunizations Administered Date(s) Administered ??? Influenza PF, Split 05/26/2013 ??? 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 Past Surgical History: Past Surgical History Procedure Laterality Date ??? Pro anastomosis, av, any site Left 05/09/2015 AV FISTULA CREATION, DIRECT HEMODIALYSIS, ANY SITE, EG ASHWINI FISTULA UPPER EXTREMITY performed by Jennifer Amaro MD at [facility] OR FAMILY HISTORY: No family history on file. SOCIAL HISTORY: History Substance Use Topics ??? Smoking status: Current Some Day Smoker Types: Cigars ??? Smokeless tobacco: Never Used Comment: cigars, only sometimes ??? Alcohol Use: No History of Present Illness: HPI Comments: Mr. Bolden is a 64-yo male with a history of ESRD who underwent left brachiocephalic av fistula placement on 05/10/15. He returned for a routine followup appointment today. He is doing very well and denies pain, numbness, paresthesias, and coolness in the digits of the left hand. His wound healed without complications and he denies redness, fevers, rigors. There has been no drainage from the wound site. ROS: Review of Systems Constitutional: Negative for fever and chills. All other systems reviewed and are negative. Body mass index is 32.82 kg/(m^2). Physical Exam: Physical Exam Cardiovascular: The left brachiocephalic av fistula has a very strong thrill. The vein is large and already apparent below the skin. The left hand is pink and well perfused. There is a palpable left radial artery pulse. The digits are warm on the left hand. He has a capillary refill time < 2 sec in the digits of the left hand. Neurological: Normal symmetric telephone advice nurse strength in the bilateral hands. He has intact normal sensation to LT in bothhands. Skin: The left antecubital fossa wound is healing without evidence of cellulitis or drainage. No contusions or palpable hematomata. Assessment and Plan: Mr. Bolden is doing very well following his left brachiocephalic av fistula placement. He has no evidence of steal syndrome and the left hand is well perfused on exam today. His wound is healing well. I recommended that he wait for another two weeks before he performs lifting > 10lbs with the left arm. He is aware that the fistulae generally require approximately 2 - 3 months of maturation timebefore cannulation, though I defer to the Nephrology team to make this decision based upon their exams over the upcoming month. Followup prn for vascular access issues. He remains in workup for a kidney transplant. MD: JENNIFER AMARO MD documented in this encounter Plan of Treatment Upcoming Encounters Date Type Department Care Team (Late st Contact Info) Description 04/15/2024 10:00 AM EDT Hospital Encounter Non[place] [address] Arrived documented as of this encounter Visit Diagnoses Diagnosis A-V fistula Arteriovenous fistula, acquired documented in this encounter Care Teams Maple Syrup Maker Relationship Specialty Start Date End Date Urbano Denis DO [address] [place] [address] PCP - General 09/03/12 03/17/22 documented as of this encounter
--- OUTSIDE RECORDS SUMMARY | 2024-02-14 11:38 | XMS_ITS | Encounter Summary ---
Author Organization [facility] Address [facility] [address] Care Team Providers Care Electric Engine Mechanic Name Role Phone Urbano Denis DO Primary Care Provider Reason for Visit * Reason Comments Kidney Transplant Evaluation End Stage Renal Disease Encounter Details Date Type Department Care Team (Late st Contact Info) Description 04/19/2015 8:00 AM EDT Office Visit [place] [address] Tal Eagle MD [facility] [place] [address] Pre-transplant evaluation for ESRD (end stage renal disease); Type 2 diabetes mellitus with ESRD (end-stage renal disease) Social History Tobacco Use Types Packs/Day Years Used Date Smoking Tobacco: Former Sex and Gender Information Value Date Recorded Sex Assigned at Not on file Gender Identity Not on file Sexual Orientation Not on file documented as of this encounter Last Filed Vital Signs Vital Sign Reading Time Taken Comments Blood Pressure 158/110 04/19/2015 8:34 AM EDT Pulse 76 04/19/2015 8:34 AM EDT Temperature - - Respiratory Rate 17 04/19/2015 8:34 AM EDT Oxygen Saturation 100% 04/19/2015 8:34 AM EDT Inhaled Oxygen Concentration - - Weight 96.6 kg (213 lb) 04/19/2015 8:34 AM EDT Height 176.5 cm (5' 9.5) 04/19/2015 8:34 AM EDT Body Mass Index 31 04/19/2015 8:34 AM EDT documented in this encounter Progress Notes * Anabella Bright - 05/23/2015 12:29 PM EST Transplant Bark Skinner Note: Met with patient and his in Kidney Class to review medical and pharmacy benefits for transplant services. He is covered under Medicare AB as well as an [employer] retiree plan as his supplement. [employer] is his part D plan. I did not have his prescription insurance information prior to meeting with him, therefore I arranged with him to mail estimated post transplant medications copays. Primary Insurance: Medicare AB Secondary Plan:BCBS Medigap plan (part of penitentiary) Pharmacy Carrier:[employer] part D - penitentiary sponsored * Herlinda Bell RD - 04/19/2015 4:25 PM EDT TRANSPLANT NUTRITION Initial Transplant Note This adjusto writer operator met with Cody Bolden a 64 y.o. year old male on 04/19/2015 for nutrition assessment as part of kidney transplant work-up. Patient and his , Mara, attended the Kidney Transplant Information Session and then met with each member of the transplant team. Patient has previously been worked up for transplant at [facility]. Medical history: ESRD, DM2, HTN, Hep C, obstructive sleep apnea, h/o colon polyp, GERD, CVA Diabetic History: Type 2 not on any insulin or OHA Dialysis History: initiated 01/2015 and receives his treatments at the [facility] dialysis unit. Patient and his state that his blood chemistries are within acceptable ranges. Food Record: B -> Eng muffin w/bu and jelly, coffee; L -> s/w or leftovers D -> chili and 3 biscuits, or typical protein, starch, veg. May have HS snack of i/c, fruit, an eclair occasionally. Patient and his share the meal prep duties. Likes milk (2%), nuts; could do 1%. History (Social) Substance Use Topics ??? Smoking status: Former Smoker ??? Smokeless tobacco: Not on file ??? 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 Current Outpatient Prescriptions Medication Sig Dispense Refill ??? levothyroxine (SYNTHROID) 25 mcg Tablet Take 25 mcg by mouth every morning. ??? clopidogrel (PLAVIX) 75 mg Tablet Take 75 mg by mouth daily. ??? hydrALAZINE (APRESOLINE) 25 mg Tablet Take [...] No current facility-administered medications for this visit. Anthropometrics Height: 69.5 (176.5cm) Weight: 213# (96.6kg) BMI: 31 IBW: 81.8kg Recent weight change: 10/27/2013 patient weighed 240# due to fluid overload; 03/16/2015 -> 222#; now ~210# DBW. Patient states that his high school weight and weight were 210# Nutritional Concerns: No issues with n/v/d/c. Good appetite. No problems chewing or swallowing. Follows a low Phos and low K+ diet. Patient is tired after dialysis. Assessment/Plan: There are no nutritional contraindications to transplant noted. Discussed diet modifications post kidney transplant and rationale. Provided printed information as reinforcement of our discussion: Potential Nutrition Issues after Transplant Due to medication Side Effects. Good comprehension verbalized: means for contact provided. Plan communicated to Tearoom Host/Hostess for Documentation in patient's transplant medical record. Remain available for questions/concerns. * Ellen Bauer RN - 04/19/2015 2:50 PM EDT Solid Organ Acquisition and Transplantation [facility] PRE-OPERATIVE PATIENT TEACHING PATIENT NAME: Cody Bolden : 1950 Identification Barriers (Check those that apply): X None Identified Unable to Read Fatigue/Pain Vision Motivation Cultural/Anglican Hearing Language Protector Plate Attacher Needed Other Learner: Patient Name: oCdy Bolden Family/Caregiver Name: Paola Yuan Attendees: Paola Bolden Transplant Evaluation Review Date: 04/19/2015 X Need for notification of insurance, demographic changes at all times X Information related to [employer] of Organ Sharing (UNOS - www.unos.org), Organ Allocation Policy (UNOS Region 1, Swap and Extended Donor Program, Transplant Centers wait time by Blood Type Groups. X Evaluation Process, obtain History and timeframe notification of activation on the transplant list. X Life Long Immuno-suppressant regime and need for compliance; basic knowledge, side effects and possibilities of medication changes if side effects occur. X Options of Living Related vs. Unrelated vs. Cadaver including risk factors, length of hospitalizations, impact on kidney function, survival rates. X Need for continued Primary Nephrology Care visits, one (1) year Transplant Clinic visits, monthlylabs. X Pre-operative teaching with Recipient (time & where to report to hospital, equipment expectations, unit assignments, ADL activities, VS, monitors, MOTHER REPAIRER pain management, return to work schedules). X Review of hospital unit and visitor information. X Review Immunosuppressive medications: basic knowledge and side effects; possibilities of medication changes if side effects occur. X Expected daily routines of recipient post-operatively. i.e. vital sign monitoring, Intake and Output, clinic visits, blood work and medication change routines. Stent removal appointment and pre-medications Dental appointments and pre-medications X Dialysis Very pleasant gentleman came in with Paola. Brother and sister are willing donors Donor packets provided. Consents are discussed and signed. I provided them with my telephone number. Currently on Dialysis [place] a tunneled cath, vein mapping for AV fistula creation was done,waiting toschedule placement, seeing Dr. Hunt. * Gloria Haro, [facility] - 04/19/2015 1:11 PM EDT Encounter Date: April 19, 2015 Mr. Cody Bolden is a 64 y.o. male seen for a medication review as part of his kidney transplant work-up. S: Met with patient and his to discuss post-transplant medications and review current medications. How often do you forget to take one or more of your prescription medications? Mr. Bolden states he rarely forgets to take a medication. He estimates he may miss a dose about once a month. How often do you decide not to take one or more of your prescription medications (maybe because it causes side effects, is too expensive, or you feel good etc.)? Mr. Bolden states he has never inappropriately stopped taking his medications. How often do you run out of one or more of your prescription medications before getting a new refill? Mr. Bolden states there has only ever been one time that he can remember running out of a medication and he was able to have it filled within a few days. He uses mail order and it is very reliable and easy to reorder medications. How often do you have difficulty affording your prescription medications? Mr. Bolden states he has good insurance coverage and does not have any trouble affording medications. How often does your pharmacy have difficulty filling your prescription medications (maybe because they don't have the medication in stock or they don't have enough to fill your prescription completely)? Mr. Bolden uses [facility] in [place], [place] and has never had any problems filling prescriptions. Allergies: Review of patient's allergies indicates no known allergies. Current Medications: Medication Sig ??? levothyroxine (SYNTHROID) 25 mcg Tablet Take 25 mcg by mouth every morning. ??? clopidogrel (PLAVIX) 75 mg Tablet Take 75 mg by mouth daily. ??? hydrALAZINE (APRESOLINE) 25 mg Tablet Take [...] capsule by mouth three times a week. ??? ONE TOUCH ULTRA TEST Strip ??? ONE TOUCH ULTRAMINI Kit ??? ONE TOUCH DELICA LANCETS 30 gauge Misc ??? doxazosin (CARDURA) 4 mg Tablet Take 1 tablet by mouth nightly. ??? omeprazole (PRILOSEC) 20 mg capsule Take 20 mg by mouth daily. No current [facility]-ordered facility-administered medications on file. Assessment/plan: 1. There are no medication contraindications noted to proceed with transplant surgery. 2. The need for ctrs medication and potential adjustment of medications post-transplant were discussed. 3. Patient was provided with handout reviewing post-transplant discharge medication costs. 4. Will remain available for any medication questions GLORIA HARO RPH * Tal Eagle MD - 04/19/2015 11:46 AM EDT TRANSPLANT NEPHROLOGY CONSULT PATIENT: Cody Bolden : 1950 REASON FOR CONSULTATION: Kidney transplant Pre evaluation referred by Dr. Urbano Denis ID: [id number] y.o. old male seen at the request of Dr. Denis for pre transplant evaluation for his kidney. He apparently has previously undergone a transplant evaluation at the [facility]. He has been told he will need a liver biopsy prior to placing him on the active transplant wait list. Past Medical History: 1. Type 2 DM on neither insulin or oral hypoglycemics; controlled by diet and weight loss 2. Hypertension 3. Microhematuria 4. H/o colon polyp 5. Hep C without cirrhosis 6. GERD 7. Stroke 8. ESRD on HD; uses HD chest cath (right) Renal biopsy: diabetic and ischemic nephropathy Bacteremia due to infected HD cath 9. BPH Active Ambulatory Problems Diagnosis Date Noted ??? DM type 2 (diabetes mellitus, type 2) 09/03/2012 ??? Hypertension 09/03/2012 ??? DJD (degenerative joint disease) 09/03/2012 ??? Hematuria 09/03/2012 ??? ESRD (end stage renal disease) 04/27/2015 Resolved Ambulatory Problems Diagnosis Date Noted ??? No Resolved Ambulatory Problems No Additional Past Medical History No past surgical history on file. History of Present Illness: Mr. Bolden presents today for pre transplant evaluation. [facility] by Dr [facility] (per pt after that he changed his spinning doffer after discussing with his PCP.[facility] spinning doffer did kideny biopsy which according to pt showed ESRD due to DM and HTN. He has been on HD MWF at [facility] since then being followed by Dr Franco there. He is on list for kidney transplant since December 2008 at [facility] as he has one house in [place] and visits that area very frequently. Off note Pt is also being worked up by GI at [place] for his hepatitis C. MEDICATIONS: Current Outpatient Prescriptions on File Prior to Visit Medication Sig Dispense Refill ??? clopidogrel (PLAVIX) 75 mg Tablet Take 75 mg by mouth daily. ??? hydrALAZINE (APRESOLINE) 25 mg Tablet Take 75 mg by mouth 2 times daily. ??? magnesium oxide (MAG-OX) 400 mg Tablet Take 400 mg by mouth daily. ??? carvedilol (COREG) 6.25 mg Tablet Take 12.5 mg by mouth 2 times daily (with meals). ??? [DISCONTINUED] amLODIPine (NORVASC) 5 mg Tablet Take 1 tablet by mouth daily. 90 tablet 3 ??? furosemide (LASIX) 80 mg Tablet Take [...] medications on file prior to visit. Allergies: No Known Allergies FH: Father had heart attack Mother is still alive Brother is a potential donor SH: Smokes cigar once in while No alcohol No drugs ROS: Constitutional - No fevers, chills, weight [...] bleeds MS - No red/ swollen joints PHYSICAL EXAM: Vitals Office Visit from 04/19/2015 in Transplant Weight - Scale 96.616 kg (213 lb) Height 176.5 cm (5' 9.5) BSA (Calculated - sq m) 2.18 sq meters BMI (Calculated) 31.1 Heart Rate 76 Resp 17 BP (!) 158/110 mmHg SpO2 100 % Appearance - Alert, Comfortable. Skin - No exanthem. HEENT - Sclera white. Mucous membranes moist. Pharynx pink. No nasal discharge. Lymph - No cervical lymphadenopathy. Chest: Lungs clear to ausculatation w/o wheezes/ rhonchi/ crackles. Heart - S1 and S2 clear w/o murmur, gallop, or rub. JVP not elevated Abd - Soft. + BS. No bruit. Non tender. No organomegaly. Ext - Warm. No cyanosis. No dependent edema. Neuro - No clonus/ asterixis. Muscle strength equal bilaterally. CN II - XII grossly intact b/l. Access-. Rt sided chest TDC STUDIES: Treadmill stress test 5.7 mets, neg ischemia, EF 55-60%, nl PASP IMPRESSION/ RECOMMENDATIONS: 64 yo Mr. Bolden is a good candidate for Kidney transplantation but we would suggest him to be treated for his Hep C 1st if he has a living donor. If he does not then he might be considered a candidate for a hep C organ and could be Rx post Tx. The timing of Rx will need to be discussed with Dr. Marcelo but if he converts and develops cryoglobulin/hypocomplementemic GN in his transplant he likely will not respond well to the hep C Rx and lose his graft based uopn our experience of Rx post tx. Advantages and disadvantages of transplantation were reviewed. Discussed the potential complications, particularly in regard to the medical complications that might occur after receiving a transplant. We addressed issues of follow-up care and the need for lifelong compliance with medical treatment plan. We also discussed the need for immunosuppressive therapy and the risk associated with this treatment especially with untreated hep C. He is already scheduled to see Dr. Marcelo for a percutaneous liver biopsy. Pt will also need FU with Dr Amaro for his fistula creation. Obtain record from [place]. Seen and Discussed w/ Dr. Shagufta Villasenor MD Nephrology fellow Pager # [phone] I reviewed all of the above findings and assessment of Dr. Villasenor and formulated the recommendationswhich accurately reflect mine. 120 Min., >50% in direct face to face psychotherapist counselor. documented in this encounter Plan of Treatment Upcoming Encounters Date Type Department Care Team (Late st Contact Info) Description 04/15/2024 10:00 AM EDT Hospital Encounter [place] [address] Arrived documented as of this encounter Visit Diagnoses Diagnosis Pre-transplant evaluation for ESRD (end stage renal disease) Other specified pre-operative examination Type 2 diabetes mellitus with ESRD (end-stage renal disease) Type II or unspecified type diabetes mellitus with renal manifestations, not stated as uncontrolled documented in this encounter Care Teams Electric Engine Mechanic Relationship Specialty Start Date End Date Urbano Denis DO [address] [place] [address] PCP - General 09/03/12 03/17/22 documented as of this encounter
--- OUTSIDE RECORDS SUMMARY | 2024-02-14 11:38 | XMS_ITS | Encounter Summary ---
Author Organization Formerly [facility] [place] [address] Care Team Providers Care Molybdenum Steamer Operator Name Role Phone Urbano eDnis DO Primary Care Provider [phone] Encounter Details Date Type Department Care Team (Late st Contact Info) Description 03/27/2015 Notes Only Solid [place] [address] Aurora Kessler Social History Tobacco Use Types Packs/Day Years Used Date Smoking Tobacco: Former Sex and Gender Information Value Date Recorded Sex Assigned at Not on file Gender Identity Not on file Sexual Orientation Not on file documented as of this encounter Progress Notes * Aurora Kessler - 03/27/2015 3:17 PM EDT Referral Date 01/15/15 Evaluation Date 04/19/15 (3 ATTEMPTS TO SCHEDULE) Organ KIDNEY Referring Provider MARIANGEL QUINONES Primary Care Provider URBANO DENIS Dialysis Unit [facility] Dialysis Schedule MON, WED, FRI Work-up @ another Center? YES - [facility] Listed @ another Center NOT YET Patient have computer? Yes - Will complete questionnaire online REQUEST FOR RECORDS FAXED TO [facility]. REQUEST FOR RECORDS FAXED TO PCP. documented in this encounter Plan of Treatment Upcoming Encounters Date Type Department Care Team (Late st Contact Info) Description 04/15/2024 10:00 AM EDT Hospital Encounter [place] [address] Arrived documented as of this encounter Visit Diagnoses Not on filedocumented in this encounter Care Teams Molybdenum Steamer Operator Relationship Specialty Start Date End Date Urbano Denis DO [address] [place] [address] PCP - General 09/03/12 03/17/22 documented as of this encounter
--- OUTSIDE RECORDS SUMMARY | 2024-02-14 11:38 | XMS_ITS | Encounter Summary ---
Author Organization [facility] [place] [address] Care Team Providers Care Pageant Director Name Role Phone Urbano Denis DO Primary Care Provider [phone] Reason for Visit * Auth/Cert - Closed Specialty Diagnoses / Procedures Referred By Humberto t Referred To Contact Diagnoses ESRD ESRD Procedures AV FISTULA CREATION, DIRECT HEMODIALYSIS, ANY SITE, EG ASHWINI FISTULA UPPER EXTREMITY AV FISTULA CREATION, DIRECT HEMODIALYSIS, ANY SITE, EG ASHWINI FISTULA UPPER EXTREMITY Referral ID Status Reason Start Date Expiration Date Visits Re quested Visits Authorized [id number] Closed 1 1 Encounter Details Date Type Department Care Team (Late st Contact Info) Description 05/09/2015 2:04 PM EST Anesthesia Event [place] [address] Tal Basurto MD [facility] [place] [address] Marisela Cohen MD [facility] [place] [address] Anesthesia Record Procedure Summary Procedure Name Responsible Anesthesiologist Anesthesia Start Time Anesthesia Stop Time AV FISTULA CREATION, DIRECT HEMODIALYSIS, ANY SITE, EG ASHWINI FISTULA UPPER EXTREMITY (WRVU 11.9) (Left: Arm) Tal Basurto MD 05/09/15 1404 05/09/15 1613 Events Date Time Event Comment 05/09/2015 1359 1404 AN Verify 1404 Start 1405 Quick Note Face mask 1409 An Start Data 1419 Anesthesia Ready 1601 an stop data 1611 Recovery or ICU Handoff Alanna ent care was transferred to the destination unit staff after review of the patient's medical history, current anesthetic/surgical status and plan, according to the Provider Handoff Checklist. 1613 Stop Meds Name Total Propofol 70 mg Propofol INF 1,319.68 mg sodium chloride 0.9 % flush 5-20 mL 0 mL ceFAZolin (ANCEF) 2g in dextrose 5% 50 m L 2 g Heparin 3,000 Units ePHEDrine 10 mg sodium chloride 0.9% infusion 500 mL * Agents Name O2 Sevoflurane (et) * Blood No blood administrations on file. Lines, Drains, and Airways Type Details Placement Removal (RETIRED) Tunneled Central Line - Double Lumen 01/09/15; 0827; internal jugular vein, right; other (see comments) (Hemo-Flow); other (see comments) (14.5 Fr); hemodialysis; 28; Santosh Ellsworth MD; 11/15/15; 1223 01/09/15 0827 by Patricia Romero RN 11/15/15 1223 by Keyana Hedrick RN Incision 05/09/15; arm; 09/16/15; 1427 05/09/15 0000 by Hanh Adler RN 09/16/15 1427 by Kandace Valenzuela RN (RETIRED) Peripheral IV Line - Single Lumen 05/09/15; 1335; metacarpal vein right (top of hand); [id number] catheter system; 18 gauge, 1 in length; Briseyda Acuña Rn ; distraction, intradermal injection; 05/09/15; 1733 05/09/15 1335 by Zohra Rain RN 05/09/15 1733 by Ina Tomlin RN documented in this encounter Social History [...] OR Notes * Anesthesia Postprocedure Evaluation - Tal Basurto MD - 05/09/2015 5:08 PM EST Patient: Cody Bolden Procedure(s) Performed: Procedure(s): AV FISTULA CREATION, DIRECT HEMODIALYSIS, ANY SITE, EG ASHWINI FISTULA UPPER EXTREMITY Actual Anesthetic: MAC Patient location: PACU Post-op pain: Adequate analgesia Post-op nausea: no nausea or vomiting Last Vitals: Filed Vitals: 05/09/15 1645 BP: 139/82 Pulse: 66 Temp: Resp: 16 Post-op cardiovascular and respiratory status: is stable Level of consciousness: awake, alert and oriented Complications: no apparent complications and tolerated the procedure well Fluid Status: normal * Anesthesia Preprocedure Evaluation - Tal Basurto MD - 05/08/2015 4:05 PM EST Pre-Anesthesia Evaluation for: Cody Bolden a 64 [...] TM distance: >3 FB Neck ROM: full barry Cardiovascular Assessment: cardiovascular exam normal Pulmonary Assessment: pulmonary exam normal Dental Assessment: (+) upper dentures Misc Assessment: IV access: Peripheral line Anesthesia Plan: ASA 4 MAC, with a(n) intravenous induction 64yo man 96kg IBW 80kg c history of ESRD to OR for LUE fistula creation. PMHx: ESRD, HTN, HepC s cirrhosis, CVA c residual R side numbness, ARIELLA, DM (diet controlled) Echo December 2014 - EF 65%, small PFO, mild LVH, borderline LV dilation, no WMAs, diastolic dysfunction, trace AI, mild TR, mild LA dilation Liver ultrasound c fatty liver s focal mass. Last plavix 04/30/15, dialysis this am, K 4.2 Risks and benefits of MAC with GA back-up discussed All questions answered Plan MAC Region - Other Informed Consent: Anesthetic plan and risks discussed with patient. Use of blood products discussed with patient whom consented to blood products. Plan discussed with MANAGER CUSTOM. PAT Staff Note documented in this encounter Plan of Treatment Upcoming Encounters Date Type Department Care Team (Late st Contact Info) Description 04/15/2024 10:00 AM EDT Hospital Encounter Non-Invasive [place] [address] Arrived documented as of this encounter Visit Diagnoses Not on filedocumented in this encounter Administered Medications Inactive Administered Medications - up to 3 most recent administrations Medication Order MAR Action Action Date Dose Rate Site ceFAZolin (ANCEF) 2g in dextrose 5% 50 mL 2 g, Intravenous, EVERY 8 HOURS, First dose on Thu05/09/15 at 1400, Until Discontinued, Administer over 30 Minutes, Indication for (Active or Suspected): Prophylaxis Given 05/09/2015 2:35 PM EST 2 g ePHEDrine 5 mg/mL multi-dose injection PRN, Starting on Thu05/09/15 at 1508, Until Thu05/09/15 at 1613, Anesthesia Intra-op, Routine Given 05/09/2015 3:08 PM EST 5 mg Given 05/09/2015 2:49 PM EST 5 mg heparin (porcine) injection PRN, Starting on Thu05/09/15 at 1457, Until Thu05/09/15 at 1613, Anesthesia Intra-op, Routine Given 05/09/2015 2:57 PM EST 3,000 Units propofol (DIPRIVAN) 10 mg/mL bolus injection (Anesthesia) PRN, Starting on Thu05/09/15 at 1411, Until Thu05/09/15 at 1613, Anesthesia Intra-op Given 05/09/2015 2:18 PM EST 30 mg Given 05/09/2015 2:11 PM EST 40 mg propofol (DIPRIVAN) infusion CONTINUOUS PRN, Starting on Thu05/09/15 at 1417, Until Thu05/09/15 at 1613, Anesthesia Intra-op, Routine Rate/Dose Change 05/09/2015 2:32 PM EST 150 mcg/kg/min 88.5 mL/hr New Bag 05/09/2015 2:17 PM EST 125 mcg/kg/min 73.7 mL/h r sodium chloride 0.9% infusion 1,000 mL, at 100 mL/hr, Intravenous, CONTINUOUS, Starting on Thu05/09/15 at 1345, Until Laura 05/10/15 at 1344, Day of Surgery (Day of Procedure) New Bag 05/09/2015 2:04 PM EST documented in this encounter Care Teams Pageant Director Relationship Specialty Start Date End Date Urbano Denis DO [address] [place] [address] PCP - General 09/03/12 03/17/22 documented as of this encounter
--- OUTSIDE RECORDS SUMMARY | 2024-02-14 11:39 | XMS_ITS | Encounter Summary ---
Author Organization [facility] [place] [address] Care Team Providers Care [employer] Registrar Name Role Phone Urbano Denis DO Primary Care Provider Encounter Details Date Type Department Care Team (Latest Contact Info) Description 09/03/2012 10:00 AM EST Office Visit [place] [address] Urbano Loya MD [facility] [place] [address] Hypertension (Primary Dx); H/O hematuria; Proteinuria; DM type 2 (diabetes mellitus, type 2); CKD (chronic kidney disease) stage 3, GFR 30-59 ml/min Discharge Disposition: Home Social History Tobacco Use Types Packs/Day Years Used Date Smoking Tobacco: Some Days Sex and Gender Information Value Date Recorded Sex Assigned at Not on file Gender Identity Not on file Sexual Orientation Not on file documented as of this encounter Last Filed Vital Signs Vital Sign Reading Time Taken Comments Blood Pressure 140/76 09/03/2012 9:52 AM EST Pulse 57 09/03/2012 9:52 AM EST Temperature - - Respiratory Rate - - Oxygen Saturation - - Inhaled Oxygen Concentration - - Weight 100.7 kg (222 lb) 09/03/2012 9:52 AM EST Height - - Body Mass Index - - documented in this encounter Progress Notes * Urbano Loya MD - 09/03/2012 10:26 AM EST Hypertension/Nephrology Consultation Ethel Akins [id number] ID: [id number] y.o. old male seen at the request of Dr. Denis for evaluation of hematuria. Past Medical History: 1. Type 2 DM 2. Hypertension 3. Microhematuria 4. H/o colon polyp 5. D/p rotator cuff repair 6. GERD 7. S/p right knee surgery 8. CKD 9. BPH History of Present Illness: Mr. Akins presents today for evaluation of microhematuria. He had a routine physical at the beginning of this year that showed microhemturia. 1-3 rbc/hpf were noted as well as microalbuminuria. A repeat sample a month later was similar. He was seen by a urologist who check a renal US which was reportedly normal. Cystoscopy was considered but felt to be low yield. He is referred for consideration of glomerular bleeding. He has mild urinary hesitancy that has not been helped by flomax in the past. He has never had a kidney stone. There has never been gross hematuria, fevers or systemic symptoms. He has intentionally lost about 10 pounds in the past two months. Medications: Outpatient Encounter Prescriptions as of 09/03/2012 Medication Sig Dispense Refill ??? metFORMIN (GLUCOPHAGE) 500 mg tablet Take 500 mg by mouth 2 times daily (with meals). ??? omeprazole (PRILOSEC) 20 mg capsule Take 40 mg by mouth daily. ? ? potassium & sodium phosphates (NEUTRA-PHOS) 280-160-250 mg PwPk Take 99 g by mouth daily. ??? magnesium oxide (MAG-OX) 400 mg tablet Take 500 mg by mouth daily. ??? amlodipine (NORVASC) 10 mg tablet ??? losartan-hydrochlorothiazide (HYZAAR) 100-25 mg per tablet ??? DISCONTD: famotidine (PEPCID) 20 mg tablet Allergies / ADRs: No Known Allergies Family History: Father of AL, brother of sarcoma. 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 Review of Systems: System Abnormalities Constitutional No fevers, malaise Eye No visual changes ENT No dysphagia CV No chest pain Resp No dyspnea GI No n/v No dysuria. + microhematuria, nocturia, urinary hesitancy Skin No rashes Allergy No allergies Endocrine + DM Neurologic No headaches Musculoskeletal Chronic joint pain Lymph Minimal edema Psych Mildly anxious about the possibility of cancer Y N All other systems reviewed and negative. Physical Examination: Filed Vitals: 09/03/12 0952 BP: 140/76 Pulse: 57 Weight: 100.699 kg (222 lb) General: WDWN male NAD Eye: Conjunctivae clear, PERRL ENT: OP clear, TMs clear Neck: S/NT, no bruits CV: S1S2, reg, no m/g/r Resp: CTA Abd: S/NT, NABS, no HSM Lymph: No cervical/supraclavicular adenopathy Ext: Minimal edema Skin: Warm/dry Neuro: ORTIZ well, EOMI, speech intact, antalgic gait Psych: A&O, affect appropriate Labs: UA (performed by me): SG 1.015, pH 5, 3+ protein, o/w negative Urine micro (performed by me): No WBC, RBC, casts, crystals Results for ETHEL AKINS ( ) as of 09/06/2012 11:49 Ref. Range 09/03/2012 10:30 09/03/2012 11:06 WBC Latest Range: 4.0-10.0 x10(3)/mcL 8.8 RBC Latest Range: 4.63-6.08 x10(6)/mcL 4.94 Hemoglobin Latest Range: 13.7-17.5 gm/dL 15.3 Hematocrit Latest Range: 40.0-51.0 % 43.1 MCV Latest Range: 79.0-92.0 fL 87.2 MCH Latest Range: 25.6-32.2 pg 31.0 MCHC Latest Range: 32.0-36.5 gm/dL 35.5 RDWSD Latest Range: 35.0-46.0 fL 41.6 RDWCV Latest Range: 10.9-14.4 % 13.0 Platelets Latest Range: 145-370 x10(3)/mcL 278 MPV Latest Range: 9.0-12.0 fL 10.1 Neutr Abs (ANC) Latest Range: 1.50-6.30 x10(3)/mcL 5.77 Neutrophils % Latest Range: 34.0-71.0 % 65.6 Immature Gran % Latest Range: 0.00-0.66 % 0.10 Lymphocytes % Latest Range: 19.0-53.0 % 24.8 Monocytes % Latest Range: 4.0-13.0 % 5.6 Eosinophils % Latest Range: 0.0-7.0 % 3.3 Basophils % Latest Range: 0.0-2.0 % 0.6 Ayesha Gran Abs Latest Range: 0.00-0.05 x10(3)/mcL 0.01 Lymphocytes Abs Latest Range: 1.0-3.6 x10(3)/mcL 2.2 Monocyte Abs Latest Range: 0.2-1.0 x10(3)/mcL 0.5 Eosinophils Abs Latest Range: 0.0-0.5 x10(3)/mcL 0.3 Basophils Abs Latest Range: 0.0-0.2 x10(3)/mcL 0.0 U Protein Ran Latest Range: 0-12 mg/dL 457 (H) Sodium Latest Range: 135-145 mmol/L 141 Potassium Latest Range: 3.5-5.0 mmol/L 3.5 Chloride Latest Range: 98-107 mmol/L 104 CO2 Latest Range: 22-31 mmol/L 28 Anion Gap Latest Range: 5-15 mmol/L 9 BUN Latest Range: 10-20 mg/dL 31 (H) Creatinine Latest Range: 0.80-1.50 mg/dL 1.58 (H) Estimated GFR Latest Range: >=60 44 (L) Glucose Lvl Latest Range: 60-199 mg/dL 93 Calcium Latest Range: 8.5-10.5 mg/dL 9.0 Phosphorus Latest Range: 2.5-4.5 mg/dL 2.7 Albumin Latest Range: 3.2-5.2 gm/dL 3.8 U Creatinine No range found 135 Prot/Cre Ratio No range found 3.4 A/P: 1. Microhematuria: Absent today. Negative urologic workup. Intermittent microhemturia is rarely of clinical significance and even when detected in him was at a very low level. BPH, a viral illness orheavy physical exertion could all cause these findings. - will monitor 2-3 times per year for 1-2 years - if microhematuria persists after 1 year, a repeat urologic evaluation would be helpful to make certain that a slow growing tumor has not become detectable 2. Renal: Stage 3 CKD, likely secondary to diabetic nephropathy. No anemia, hyperkalemia, hyperphosphatemia. Nephrotic range proteinuria despite maximal dose losartan but he does not have the nephrotic syndrome. - avoid nephrotoxins, including NSAIDS - renal dose meds - BP control as below. 3. Hypertension: BP improved from last visit with Dr. Denis although remains somewhat above target range. Given his diabetes, proteinuria and elevated Cr, target BP should be < 140/80 or perhaps slightly lower unless he becomes symptomatic. - continue ARB therapy - if BP remains above target, would start doxazosin 1mg daily and titrate to gaol BP Thank you for allowing me to participate in the care of this interesting patient. >the total time spent [id number] AND total time the provider spent counseling was xxx minutes. Please CC to: Urbano Denis, @[email or web address]@ documented in this encounter Plan of Treatment Upcoming Encounters Date Type Department Care Team (Late st Contact Info) Description 04/15/2024 10:00 AM EDT Hospital Encounter [place] [address] Arrived documented as of this encounter Procedures Procedure Name Priority Date/Time Associated Diagnosis Comments DIFFERENTIAL, AUTOMATED Routine 09/03/2012 11:06 AM EST CBC (WITH DIFF) Routine 09/03/2012 11:06 AM EST Hypertension H/O hematuria Proteinuria DM type 2 (diabetes mellitus, type 2) CKD (chronic kidney disease) stage 3, GFR 30-59 ml/min PHOSPHORUS Routine 09/03/2012 11:06 AM EST Hypertension H/O hematuria Proteinuria DM type 2 (diabetes mellitus, type 2) CKD (chronic kidney disease) stage 3, GFR 30-59 ml/min ALBUMIN LEVEL Routine 09/03/2012 11:06 AM EST Hypertension H/O hematuria Proteinuria DM type 2 (diabetes mellitus, type 2) CKD (chronic kidney disease) stage 3, GFR 30-59 ml/min BASIC METABOLIC PANEL Routine 09/03/2012 11:06 AM EST Hypertension H/O hematuria Proteinuria DM type 2 (diabetes mellitus, type 2) CKD (chronic kidney disease) stage 3, GFR 30-59 ml/min PROTEIN/CREATININE RATIO, URINE Routine 09/03/2012 10:30 AM EST Hypertension documented in this encounter Results * (ABNORMAL) Protein/Creatinine Ratio, urine (12/06/2012 10:51 AM EDT) Creatinine, Urine 164 mg/dL [facility] MILLENNIUM Protein, Urine 547(H) 0 - 12 mg/dL [facility] MILLENNIUM Protein / Creatinine Ratio, Urine 3.3 ratio [facility]ILL[facility] Urine specimen (specimen) 12/06/2012 10:51 AM EDT 12/06/2012 10:54 AM EDT Narrative Resulting Agency Comment Spec In Lab Urbano Loya MD URINE ORDERABLES CERNER MILLENNIUM * (ABNORMAL) Urinalysis without microscopic (12/06/2012 10:51 AM EDT) Glucose, Urine Dipstick Negative Negative mg/dL [facility] MILLENNIUM Protein, Urine Dipstick 300(A) Neg mg/dL [facility] MILLENNIUM Bilirubin, Urine Dipstick Negative Negative mg/dL [facility] MILLENNIUM Urobilinogen, Urine Dipstick Normal mg/dL [facility] MILLENNIUM pH, Urn (dipstick) 6.0 5.0 - 8.0 [facility] MILLENNI[facility] Blood, Urine Dipstick Trace(A) Neg [facility] MILL[facility] Ketone, Urine Dipstick Negative mg/dL [facility] MILLENNI[facility] Nitrite, Urine Dipstick Negative [facility] MILLENNI[facility] Leukocytes, Urine Dipstick Negative mcL [facility] MILLENNIUM Appearance, Urine Dipstick Clear Clear CERNER MILLENNIUM Specific [place] Urine Automated 1.014 1.002 - 1.030 [facility] MILLENNIUM Color, Urine Dipstick Yellow Yellow [facility] MILLENNIUM Urine specimen (specimen) URINE SPECIMEN OBTAINED BY CLEAN CATCH PROCEDURE / Unknown 12/06/2012 10:51 AM EDT 12/06/2012 10:54 AM EDT Narrative Resulting Agency Comment Spec In Lab Urbano Loya MD URINE ORDERABLES Performing Organization Address [facility] Co de Phone Number [facility] * Phosphorus (12/06/2012 10:34 AM EDT) Phosphorus 2.8 2.5 - 4.5 mg/dL [facility] Blood specimen (specimen) 12/06/2012 10:34 AM EDT 12/06/2012 10:42 AM EDT Narrative Resulting Agency Comment Spec In Lab Urbano Loya MD CHEMISTRY ORDERABLES Performing Organization Address [facility] de Phone Number [facility] * (ABNORMAL) PTH (12/06/2012 10:34 AM EDT) Parathyroid Hormone 91(H) 15 - 65 pg/mL [facility] Blood specimen (specimen) 12/06/2012 10:34 AM EDT 12/06/2012 10:42 AM EDT Narrative Resulting Agency Comment Spec In Lab Urbano Loya MD CHEMISTRY ORDERABLES Performing Organization Address [facility] de Phone Number [facility] * Albumin Level (12/06/2012 10:34 AM EDT) Albumin 4.0 3.2 - 5.2 gm/dL [facility] Blood specimen (specimen) 12/06/2012 10:34 AM EDT 12/06/2012 10:42 AM EDT Narrative Resulting Agency Comment Spec In Lab Urbano Loya MD CHEMISTRY ORDERABLES Performing Organization Address [facility] de Phone Number [facility] * CBC (with Diff) (12/06/2012 10:34 AM EDT) White Blood Cell 8.7 4.0 - 10.0 x10(3)/mcL [facility] MILLENNIUM Red Blood Cell 5.02 4.63 - 6.08 x10(6)/mcL [facility] MILLENNIUM Hemoglobin 15.2 13.7 - 17.5 gm/dL [facility]ERN[facility] MILLENNIUM Hematocrit 43.5 40.0 - 51.0 % CERNER MILLENNIUM Mean Cell Volume 86.7 79.0 - 92.0 fL [facility]ERN[facility] MILLENNIUM Mean Cell Hemoglobin 30.3 25.6 - 32.2 pg CERNER MILLENNIUM Mean Cell Hemoglobin Concentration 34.9 32.0 - 36.5 gm/dL [facility] MILLENNIUM Platelet 281 145 - 370 x10(3)/mcL [facility]ERN[facility] MILLENNIUM RDW Standard Deviation 40.5 35.0 - 46.0 fL CERN[facility] MILLENNIUM RDW coefficient of variation 12.8 10.9 - 14.4 % [facility] MILLENNIUM Mean Platelet Volume 10.3 9.0 - 12.0 fL [facility]ILL[facility] Blood specimen (specimen) 12/06/2012 10:34 AM EDT 12/06/2012 10:42 AM EDT Narrative Resulting Agency Comment Spec In Lab Urbano Loya MD HEMATOLOGY ORDERABLE S [facility] * (ABNORMAL) Basic Metabolic Panel (non-fasting) (12/06/2012 10:34 AM EDT) [facility] Glucose 119 60 - 199 mg/dL CERNER MILLENNIUM Comment:Diabetes: >=200 mg/d L plus symptoms Blood Urea Nitrogen 28(H) 10 - 20 mg/dL [facility]ERN[facility] MILLENNIUM Creatinine 1.68(H) 0.80 - 1.50 mg/dL [facility] MILLENNIUM Comment: Please note that the pediatric reference intervals supplied above were not validated at [facility]. Results from pediatric patients should be interpreted in conjunction to the patient's age, height and muscle mass. Sodium 142 135 - 145 mmol/L [facility] MILLENNIUM Potassium 3.5 3.5 - 5.0 mmol/L [facility] MILLENNIUM Comment: Please note: ??Patients with WBC >100,000 may have falsely elevated Potassium levels. ??For accurate Potassium quantification in these patients send serum separator tube (gold top) for subsequent determinations. ??Contact the Clinical Chemistry Laboratory if there are any questions. Chloride 102 98 - 107 mmol/L CERNER MILLENNIUM Carbon Dioxide 27 22 - 31 mmol/L CERN[facility] MILLENNIUM Anion Gap 13 5 - 15 mmol/L [facility]ERN[facility] MILLENNIUM Calcium 9.3 8.5 - 10.5 mg/dL [facility]ERN[facility] MILLENNIUM Est Glomerular Filtration Rate 41(L) >=60 CERNER MILLENNIUM Comment: This estimated GFR [...] the following links into your internet browser. http://www.nkdep.nih.gov/lab-evaluation.shtml http://www.kidney.org/professionals/ Blood specimen (specimen) 12/06/2012 10:34 AM EDT 12/06/2012 10:42 AM EDT Narrative Resulting Agency Comment Spec In Lab Urbano Loya MD CHEMISTRY ORDERABLES [facility] MILLENNIUM * Differential, Automated (09/03/2012 11:06 AM EST) Neutrophil % 65.6 34.0 - 71.0 % CERNER MILLENNIUM Neutrophil Absolute 5.77 1.50 - 6.30 x10(3)/mcL CERNER MILLENNIUM Lymph % 24.8 19.0 - 53.0 % CERNER MILLENNIUM Lymphocytes Abs 2.2 1.0 - 3.6 x10(3)/mcL CERNER MILLENNIUM Monocyte % 5.6 4.0 - 13.0 % [facility] MILLENNIUM Monocyte Abs 0.5 0.2 - 1.0 x10(3)/mcL CERNER MILLENNIUM Eos % 3.3 0.0 - 7.0 % CERNER MILLENNIUM Eosinophils Abs 0.3 0.0 - 0.5 x10(3)/mcL CERNER MILLENNIUM Basophil % 0.6 0.0 - 2.0 % CERNER MILLENNIUM Baso Absolute 0.0 0.0 - 0.2 x10(3)/mcL [facility]ERN[facility] MILLENNIUM Immature Gran % 0.10 0.00 - 0.66 % CERNER MILLENNIUM Comment: Immature granulocytes(IG's)percentage and absolute count will include metamyelocytes, myelocytes, and promyelocytes. Blood smears from CBCs yielding IG's will be scanned manually for concordance. If this scan disagrees with the automated IG or if promyelocytes are noted, a manual differential will be performed. Immature Gran Absolute 0.01 0.00 - 0.05 x10(3)/mcL [facility] MILLENNIUM Blood specimen (specimen) 09/03/2012 11:06 AM EST 09/03/2012 11:15 AM EST Urbano Loya MD HEMATOLOGY ORDERABLE S Performing Organization Address [facility] Co de Phone Number [facility] * Phosphorus (09/03/2012 11:06 AM EST) Phosphorus 2.7 2.5 - 4.5 mg/dL [facility] MILLENNIUM Blood specimen (specimen) 09/03/2012 11:06 AM EST 09/03/2012 11:15 AM EST Narrative Resulting Agency Comment Spec In Lab Urbano Loya MD CHEMISTRY ORDERABLES Performing Organization Address [facility] Co de Phone Number [facility] MCCLENDON[facility]NIUM * Albumin Level (09/03/2012 11:06 AM EST) Albumin 3.8 3.2 - 5.2 gm/dL [facility] MILLENNIUM Blood specimen (specimen) 09/03/2012 11:06 AM EST 09/03/2012 11:15 AM EST Narrative Resulting Agency Comment Spec In Lab Urbano Loya MD CHEMISTRY ORDERABLES Performing Organization Address [facility] Co de Phone Number BENEDICT MCCLENDONENNIUM * CBC (with Diff) (09/03/2012 11:06 AM EST) Pathologist [facility] White Blood Cell 8.8 4.0 - 10.0 x10(3)/mcL CERNER MILLENNIUM Red Blood Cell 4.94 4.63 - 6.08 x10(6)/mcL CERNER MILLENNIUM Hemoglobin 15.3 13.7 - 17.5 gm/dL CERN[facility] MILLENNIUM Hematocrit 43.1 40.0 - 51.0 % CERNER MILLENNIUM Mean Cell Volume 87.2 79.0 - 92.0 fL CERNER MILLENNIUM Mean Cell Hemoglobin 31.0 25.6 - 32.2 pg CERNER MILLENNIUM Mean Cell Hemoglobin Concentration 35.5 32.0 - 36.5 gm/dL CERNER MILLENNIUM Platelet 278 145 - 370 x10(3)/mcL CERNER MILLENNIUM RDW Standard Deviation 41.6 35.0 - 46.0 fL CERNER MILLENNIUM RDW coefficient of variation 13.0 10.9 - 14.4 % CERNER MILLENNIUM Mean Platelet Volume 10.1 9.0 - 12.0 fL [facility] MILLENNIUM Blood specimen (specimen) 09/03/2012 11:06 AM EST 09/03/2012 11:15 AM EST Narrative Resulting Agency Comment Spec In Lab Urbano Loya MD HEMATOLOGY ORDERABLE S [facility] * (ABNORMAL) Basic Metabolic Panel (non-fasting) (09/03/2012 11:06 AM EST) [facility] Glucose 93 60 - 199 mg/dL [facility] MILL[facility] Comment:Diabetes: >=200 mg/d L plus symptoms Blood Urea Nitrogen 31(H) 10 - 20 mg/dL [facility] MILL[facility] Creatinine 1.58(H) 0.80 - 1.50 mg/dL [facility]ERNER MILLENNIUM Comment: Please note that the pediatric reference intervals supplied above were not validated at [facility]. Results from pediatric patients should be interpreted in conjunction to the patient's age, height and muscle mass. Sodium 141 135 - 145 mmol/L [facility] Potassium 3.5 3.5 - 5.0 mmol/L [facility]ILL[facility] Comment: Please note: ??Patients with WBC >100,000 may have falsely elevated Potassium levels. ??For accurate Potassium quantification in these patients send serum separator tube (gold top) for subsequent determinations. ??Contact the Clinical Chemistry Laboratory if there are any questions. Chloride 104 98 - 107 mmol/L [facility] MILLENNIUM Carbon Dioxide 28 22 - 31 mmol/L [facility] MILLENNIUM Anion Gap 9 5 - 15 mmol/L [facility] MILLENNIUM Calcium 9.0 8.5 - 10.5 mg/dL [facility]ERN[facility] MILLENNIUM Est Glomerular Filtration Rate 44(L) >=60 CERNER MILLENNIUM Comment: The National Kidney Disease Education Program (NKDEP) has recommended all laboratories report estimated GFR (eGFR) along with plasma creatinine measurements to assist you with recognition of early kidney disease. Caveats: ??Plasma creatinine should be at steady-state (unchanged within the past week). For patients multiply eGFR by 1.2. The MDRD equation was developed using patients between the ages of 18 and 70 years. ?? The MDRD equation has not been validated for patients < 18 years of age and should not be used to assess renal function in the pediatric population. ??The MDRD eGFR equation will also overestimate the true GFR of patients above the age of 70. ??This overestimation is variable but increases with age. At present, NKDEP does NOT recommend using the MDRD equation for drug dosing purposes and pharmacists should continue to use their current dosing methods. In addition, numerical eGFR values greater than 60 ml/min/1.73 square meters should be treated as > 60, and not an exact number due to greater inaccuracies at these higher values. Per NKDEP, they classify normal renal function as any GFR >60ml/min/1.73 square meters; chronic kidney disease when GFR <60, and renal failure when GFR <15. ??This calculation may not be valid for patients with atypical muscle mass (very lean or obese), acute renal failure, and in patients with diabetic kidney disease. References: http://nkdep.nih.gov/resources/NKDEP_Suggestn4Labs_0606_508.pdf http://www.kidney.org/professionals/kls/pdf/faq_gfr.pdf Monalisa K, Donovan NA, Chaz AK, Bin TS, Mary AD, Princess GIACOMO. Relative performance of the MDRD and CKD-EPI equations for estimating glomerular filtration rate among patients with varied clinical presentations. Clin J Am Soc Nephrol;6:1963-72. Blood specimen (specimen) 09/03/2012 11:06 AM EST 09/03/2012 11:15 AM EST Narrative Resulting Agency Comment Spec In Lab Urbano Loya MD CHEMISTRY ORDERABLES [facility] * (ABNORMAL) Protein/Creatinine Ratio, urine (09/03/2012 10:30 AM EST) Creatinine, Urine 135 mg/dL CERNER MILLENNIUM Protein, Urine 457(H) 0 - 12 mg/dL [facility]ERN[facility] MILLENNIUM Protein / Creatinine Ratio, Urine 3.4 ratio CERNER MILLENNIUM Urine specimen (specimen) 09/03/2012 10:30 AM EST 09/03/2012 10:42 AM EST Narrative Resulting Agency Comment Spec In Lab Urbano Loya MD URINE ORDERABLES Performing Organization Address City/[facility]/ZIP Co de Phone Number BENEDICT COOK documented in this encounter Visit Diagnoses Diagnosis Hypertension- Primary Unspecified essential hypertension H/O hematuria Personal history of other disorder of urinary system Proteinuria DM type 2 (diabetes mellitus, type 2) Type II or unspecified type diabetes mellitus without mention of complication, not stated as uncontrolled CKD (chronic kidney disease) stage 3, GFR 30-59 ml/min Chronic kidney disease, Stage III (moderate) documented in this encounter Care Teams [employer] Registrar Relationship Specialty Start Date End Date Urbano Denis DO [address] [place] [address] PCP - General 09/03/12 03/17/22 documented as of this encounter
--- OUTSIDE RECORDS SUMMARY | 2024-02-14 11:39 | XMS_ITS | Encounter Summary ---
[facility] Organization [facility] [place] [address] Care Team Providers Care Home Health Speech Therapist Name Role Phone Urbano Denis DO Primary Care Provider [phone] Encounter Details Date Type Department Care Team (Latest Contact Info) Description 10/27/2013 8:30 AM EDT - 10/27/2013 11:59 PM EDT Hospital [place] [address] Hypertension; H/O hematuria; Proteinuria; DM type 2 (diabetes mellitus, type 2); CKD (chronic kidney disease) stage 3, GFR 30-59 ml/min; Hyperparathyroidism Social History Tobacco Use Types Packs/Day Years Used Date Smoking Tobacco: Former Sex and Gender Information Value Date Recorded Sex Assigned at Not on file Gender Identity Not on file Sexual Orientation Not on file documented as of this encounter Medications at Time of Discharge Medication Sig Dispensed Refills Start Date End Date doxazosin (CARDURA) 2 mg tablet Take 1 tablet by mouth nightly. 90 tablet 3 07/12/2013 02/15/2014 metFORMIN (GLUCOPHAGE) 500 mg tablet Take 500 mg by mouth 2 times daily (with meals). 05/22/2014 omeprazole (PRILOSEC) 20 mg capsule Take 20 [...] AM EDT Hospital Encounter [place] [address] Arrived documented as of this encounter Procedures Procedure Name Priority Date/Time Associated Diagnosis Comments US RETROPERITONEAL COMPLETE Routine 10/27/2013 9:15 AM EDT Hypertension H/O hematuria Proteinuria DM type 2 (diabetes mellitus, type 2) CKD (chronic kidney disease) stage 3, GFR 30-59 ml/min Hyperparathyroidis m documented in this encounter Results * US retroperitoneal complete (10/27/2013 9:15 AM EDT) Anatomical Region Laterality Modality Abdomen Ultrasound 10/27/2013 9:15 AM EDT Narrative 10/27/2013 10:26 AM EDT ? Renal ? (Signed Final 10/27/2013 10:25 am) Patient Info ID: ? [id number] ? : [birth year] (63 yrs) Name: ? ETHEL AKINS ? Visit Date: 10/27/2013 09:11 am Performed By Performed By: ?Amanda Ahuja RDMS Associate: ? Jewel GERBER, Kameron Dennison Attending: ? Preeti Holloway MD Referred By: ? URBANO LOYA MD Service(s) Provided URETRO - Retroperitoneal Complete - [id number] ? [id number] Indications 62 year old male with microhematuria and rising Cr. ??R/o mass, obstruction. Comparison None. Right Kidney Size (cm) ?L: ??11.6 Cortical Thickness: ?Normal Cortical Echogenicity: ?? Normal Hydronephrosis: ?No sonographic evidence Comment: ?Two small cysts. 1.6 cm cyst upper pole and 0.7 ? cm cyst mid -inferior. Left Kidney Size (cm) ?L: ??13 Cortical Thickness: ?Normal Cortical Echogenicity: ?? Normal Hydronephrosis: ?No sonographic evidence Comment: ?4.2 cm exophytic cyst inferior kidney and 0.7 cm ? cyst inferior kidney. Urinary Bladder Pre-void (cm) ? L: ??5.3 ? AP: ??7.9 ? TV: ??6.6 Vol (ml): ?144.7 Comment: ?Partially distended, normal contour Impression Ultrasound - ??Retroperitoneal Complete - Summary 1. ??No solid renal mass, calculi, or hydronephrosis. 2. ??Bilateral simple renal cysts, largest 4.2 cm at the lower pole of the left kidney. I ??viewed the images and agree with the above interpretation. Thank you for allowing us to participate in the care of ETHEL AKINS. Please do not hesitate to call if you have any questions. ? Preeti Holloway MD Electronically Signed Final Report ?? 10/27/2013 10:25 am Film and interpretation reviewed by the attending Procedure Note Preeti Holloway MD - 10/27/2013 Renal (Signed Final 10/27/2013 10:25 am) Patient Info ID: [id number] : [birth year] (63 yrs) Name: ETHEL AKINS Visit Date: 10/27/2013 09:11 am Performed By Performed By: Amanda Ahuja RDMS Associate: Kameron Holloway MD Attending: Preeti Holloway MD Referred By: URBANO LOYA MD Service(s) Provided URETRO - Retroperitoneal Complete - [id number] Indications 62 year old male with microhematuria and rising Cr. R/o mass, obstruction. Comparison None. Right Kidney Size (cm) L: 11.6 Cortical Thickness: Normal Cortical Echogenicity: Normal Hydronephrosis: No sonographic evidence Comment: Two small cysts. 1.6 cm cyst upper pole and 0.7 cm cyst mid -inferior. Left Kidney Size (cm) L: 13 Cortical Thickness: Normal Cortical Echogenicity: Normal Hydronephrosis: No sonographic evidence Comment: 4.2 cm exophytic cyst inferior kidney and 0.7 cm cyst inferior kidney. Urinary Bladder Pre-void (cm) L: 5.3 AP: 7.9 TV: 6.6 Vol (ml): 144.7 Comment: Partially distended, normal contour Impression Ultrasound - Retroperitoneal Complete - Summary 1. No solid renal mass, calculi, or hydronephrosis. 2. Bilateral simple renal cysts, largest 4.2 cm at the lower pole of the left kidney. I viewed the images and agree with the above interpretation. Thank you for allowing us to participate in the care of ETHEL AKINS. Please do not hesitate to call if you have any questions. Preeti Holloway MD Electronically Signed Final Report 10/27/2013 10:25 am Film and interpretation reviewed by the attending Urbano Loya MD IMG US GEN ORDERABLE S documented in this encounter Visit Diagnoses Diagnosis Hypertension Unspecified essential hypertension H/O hematuria Personal history of other disorder of urinary system Proteinuria DM type 2 (diabetes mellitus, type 2) Type II or unspecified type diabetes mellitus without mention of complication, not stated as uncontrolled CKD (chronic kidney disease) stage 3, GFR 30-59 ml/min Chronic kidney disease, Stage III (moderate) Hyperparathyroidism Hyperparathyroidism, unspecified documented in this encounter Care Teams Home Health Speech Therapist Relationship Specialty Start Date End Date Urbano Denis DO [address] [place] [address] PCP - General 09/03/12 03/17/22 documented as of this encounter
--- OUTSIDE RECORDS SUMMARY | 2024-02-14 11:39 | XMS_ITS | Encounter Summary ---
Author Organization [facility] [place] [address] Care Team Providers Care Oracle Erp Architect Name Role Phone Urbano Denis DO Primary Care Provider [phone] Reason for Visit * Reason Comments Other Encounter Details Date Type Department Care Team (Late st Contact Info) Description 02/15/2014 Telephone [place]phrology [place] [address] Urbano Loya MD [facility] [place] [address] Social History Tobacco Use Types Packs/Day Years Used Date Smoking Tobacco: Former Sex and Gender Information Value Date Recorded Sex Assigned at Not on file Gender Identity Not on file Sexual Orientation Not on file documented as of this encounter Miscellaneous Notes * Telephone Encounter - Urbano Loya MD - 02/15/2014 10:46 AM EDT Doxazosin increased to 4mg QHS. Patient requesting new prescription. Will fax to [facility]. Message copied by URBANO LOYA on ThuFeb 15, 2014 10:46 AM ------ Message from: BRUNILDA WHITNEY Created: ThuFeb 10, 2014 9:32 AM Regarding: Medication Contact: Doxazison 2mg. Was this supposed to be increased? Please call wife. Zaidi documented in this encounter Plan of Treatment Upcoming Encounters Date Type Department Care Team (Late st Contact Info) Description 04/15/2024 10:00 AM EDT Hospital Encounter Non-[place] [address] Arrived documented as of this encounter Visit Diagnoses Not on filedocumented in this encounter Care Teams Oracle Erp Architect Relationship Specialty Start Date End Date Urbano Denis DO [address] [place] [address] PCP - General 09/03/12 03/17/22 documented as of this encounter
--- OUTSIDE RECORDS SUMMARY | 2024-02-14 11:39 | XMS_ITS | Encounter Summary ---
Author Organization [facility] [place] [address] Care Team Providers Care Stock Unloader Name Role Phone Urbano Denis DO Primary Care Provider [phone] Encounter Details Date Type Department Care Team (Late st Contact Info) Description 12/06/2012 11:30 AM EDT Follow-Up Nephrology [place] [address] Urbano Loya MD [facility] [place] [address] Hypertension (Primary Dx); H/O hematuria; Proteinuria; DM [...] Sign Reading Time Taken Comments Blood Pressure 158/82 12/06/2012 11:11 AM EDT Pulse 53 12/06/2012 11:11 AM EDT Temperature - - Respiratory Rate - - Oxygen Saturation - - Inhaled Oxygen Concentration - - Weight 101.6 kg (224 lb) 12/06/2012 11:11 AM EDT Height - - Body Mass Index - - documented in this encounter Progress Notes * Urbano Loya MD - 12/06/2012 11:25 AM EDT Nephrology/Hypertension Clinic Follow-up Note [id number] ID: 62 y.o.year-old male for follow up of CKD. Past Medical History: 1. Type 2 DM 2. Hypertension 3. Microhematuria 4. H/o colon polyp 5. D/p rotator cuff repair 6. GERD 7. S/p right knee surgery 8. CKD 9. BPH Outpatient Encounter Prescriptions as of 12/06/2012 Medication Sig Dispense Refill ??? metFORMIN (GLUCOPHAGE) [...] losartan-hydrochlorothiazide (HYZAAR) 100-25 mg per tablet No Known Allergies S: Feeling well since last visit. No chest pain, dyspnea, n/v, dysuria. O: Filed Vitals: 12/06/12 1111 BP: 158/82 Pulse: 53 Weight: 101.606 kg (224 lb) General: WDWN male NAD Eye: Conjunctivae clear ENT: No external lesions Neck: S/NT CV: S1S2, reg Resp: CTA Abd: S/NT, NABS Ext: Minimal edema Skin: Warm/dry Neuro: ORTIZ well, EOMI, speech intact, gait/station normal Psych: A&O, affect appropriate Labs: Recent Results (from the past 72 hour(s)) BASIC METABOLIC PANEL (NON-FASTING) Component Value Range Glucose Lvl 119 60 - 199 mg/dL BUN 28 (*) 10 - 20 mg/dL Creatinine 1.68 (*) 0.80 - 1.50 mg/dL Sodium 142 135 - 145 mmol/L Potassium 3.5 3.5 - 5.0 mmol/L Chloride 102 98 - 107 mmol/L CO2 27 22 - 31 mmol/L Anion Gap 13 5 - 15 mmol/L Calcium 9.3 8.5 - 10.5 mg/dL Estimated GFR 41 (*) >=60 CBC (WITH DIFF) Component Value Range WBC 8.7 4.0 - 10.0 x10(3)/mcL RBC 5.02 4.63 - 6.08 x10(6)/mcL Hemoglobin 15.2 13.7 - 17.5 gm/dL Hematocrit 43.5 40.0 - 51.0 % MCV 86.7 79.0 - 92.0 fL MCH 30.3 25.6 - 32.2 pg MCHC 34.9 32.0 - 36.5 gm/dL Platelets 281 145 - 370 x10(3)/mcL RDWSD 40.5 35.0 - 46.0 fL RDWCV 12.8 10.9 - 14.4 % MPV 10.3 9.0 - 12.0 fL ALBUMIN LEVEL Component Value Range Albumin 4.0 3.2 - 5.2 gm/dL PHOSPHORUS Component Value Range Phosphorus 2.8 2.5 - 4.5 mg/dL DIFFERENTIAL, AUTOMATED Component Value Range Neutrophils % 64.3 34.0 - 71.0 % Neutr Abs (ANC) 5.59 1.50 - 6.30 x10(3)/mcL Lymphocytes % 21.3 19.0 - 53.0 % Lymphocytes Abs 1.8 1.0 - 3.6 x10(3)/mcL Monocytes % 9.7 4.0 - 13.0 % Monocyte Abs 0.8 0.2 - 1.0 x10(3)/mcL Eosinophils % 3.8 0.0 - 7.0 % Eosinophils Abs 0.3 0.0 - 0.5 x10(3)/mcL Basophils % 0.7 0.0 - 2.0 % Basophils Abs 0.1 0.0 - 0.2 x10(3)/mcL Immature Gran % 0.20 0.00 - 0.66 % Ayesha Gran Abs 0.02 0.00 - 0.05 x10(3)/mcL URINALYSIS WITHOUT MICROSCOPIC Component Value Range Glucose UA Negative Negative mg/dL Protein UA 300 (*) Neg mg/dL Bilirubin UA Negative Negative mg/dL Urobilinogen UA Normal pH UA 6.0 5.0 - 8.0 Blood UA Trace (*) Neg Ketones UA Negative Nitrite UA Negative Leukocytes UA Negative Appearance UA Clear Clear Spec [place] UA 1.014 1.002 - 1.030 Color UA Yellow Yellow PROTEIN/CREATININE RATIO, URINE Component Value Range U Creatinine 164 A/P: 1. CKD: Stage 3 CKD likely secondary to diabetes. Cr slightly increased from last visit. - risk factor modification as below - avoid nephrotoxins, including NSAIDS - target A1c < 7.5 2. Hypertension: BP up from last visit. Pulse is already low and he is on max dose losartan, amlodipine. - add doxazosin 1mg daily - f/u 3 months CC: URBANO DENIS DO @[email or web address]@ documented in this encounter Plan of Treatment Upcoming Encounters Date Type Department Care Team (Late st Contact Info) Description 04/15/2024 10:00 AM EDT Hospital Encounter Non-Invasive [place] [address] Arrived documented as of this encounter Procedures Procedure Name Priority Date/Time Associated Diagnosis Comments PROTEIN/CREATININE RATIO, URINE Routine 12/06/2012 10:51 AM EDT Hypertension H/O hematuria Proteinuria DM type 2 (diabetes mellitus, type 2) CKD (chronic kidney disease) stage 3, GFR 30-59 ml/min URINALYSIS DIPSTICK Routine 12/06/2012 1 0:51 AM EDT Hypertension H/O hematuria Proteinuria DM type 2 (diabetes mellitus, type 2) CKD (chronic kidney disease) stage 3, GFR 30-59 ml/min PTH Routine 12/06/2012 10:34 AM EDT Hypertension H/O hematuria Proteinuria DM type 2 (diabetes mellitus, type 2) CKD (chronic kidney disease) stage 3, GFR 30-59 ml/min DIFFERENTIAL, AUTOMATED Routine 12/06/2012 10:34 AM EDT CBC (WITH DIFF) Routine 12/06/2012 10:34 AM EDT Hypertension H/O hematuria Proteinuria DM type 2 (diabetes mellitus, type 2) CKD (chronic kidney disease) stage 3, GFR 30-59 ml/min PHOSPHORUS Routine 12/06/2012 10:34 AM EDT Hypertension H/O hematuria Proteinuria DM type 2 (diabetes mellitus, type 2) CKD (chronic kidney disease) stage 3, GFR 30-59 ml/min ALBUMIN LEVEL Routine 12/06/2012 10:34 AM EDT Hypertension H/O hematuria Proteinuria DM type 2 (diabetes mellitus, type 2) CKD (chronic kidney disease) stage 3, GFR 30-59 ml/min BASIC METABOLIC PANEL Routine 12/06/2012 10:34 AM EDT Hypertension H/O hematuria Proteinuria DM type 2 (diabetes mellitus, type 2) CKD (chronic kidney disease) stage 3, GFR 30-59 ml/min documented in this encounter Results * (ABNORMAL) Protein/Creatinine Ratio, urine (07/12/2013 10:57 AM EST) Creatinine, Urine 211 mg/dL CERNER MILLENNIUM Protein, Urine 555(H) 0 - 12 mg/dL CERNER MILLENNIUM Protein / Creatinine Ratio, Urine 2.6 ratio CERNER MILLENNIUM Urine specimen (specimen) 07/12/2013 10:57 AM EST 07/12/2013 11:06 AM EST Narrative Resulting Agency Comment Spec In Lab Urbano Loya MD URINE ORDERABLES Performing Organization Address [facility] Co de Phone Number [facility] * Phosphorus (07/12/2013 10:57 AM EST) Phosphorus 2.8 2.5 - 4.5 mg/dL CERNER MILLENNIUM Blood specimen (specimen) 07/12/2013 10:57 AM EST 07/12/2013 11:06 AM EST Narrative Resulting Agency Comment Spec In Lab Urbano Loya MD CHEMISTRY ORDERABLES Performing Organization Address City/State/[facility] Co de Phone Number [facility] MADONNAIUM * Albumin Level (07/12/2013 10:57 AM EST) Albumin 3.8 3.2 - 5.2 gm/dL CERNER MILLENNIUM Blood specimen (specimen) 07/12/2013 10:57 AM EST 07/12/2013 11:06 AM EST Narrative Resulting Agency Comment Spec In Lab Urbano Loya MD CHEMISTRY ORDERABLES CERROSALINA MCCLENDONENNIUM * (ABNORMAL) PTH (07/12/2013 10:57 AM EST) Parathyroid Hormone 73(H) 15 - 65 pg/mL CERNER MILLENNIUM Blood specimen (specimen) 07/12/2013 10:57 AM EST 07/12/2013 11:06 AM EST Narrative Resulting Agency Comment Spec In Lab Urbano Loya MD CHEMISTRY ORDERABLES CERROSALINA MCCLENDONENNIUM * CBC (with Diff) (07/12/2013 10:57 AM EST) White Blood Cell 8.1 4.0 - 10.0 x10(3)/mcL CERNER MILLENNIUM Red Blood Cell 4.89 4.63 - 6.08 x10(6)/mcL CERNER MILLENNIUM Hemoglobin 14.4 13.7 - 17.5 gm/dL CERNER MILLENNIUM Hematocrit 40.5 40.0 - 51.0 % CERNER MILLENNIUM Mean Cell Volume 82.8 79.0 - 92.0 fL CERNER MILLENNIUM Mean Cell Hemoglobin 29.4 25.6 - 32.2 pg CERNER MILLENNIUM Mean Cell Hemoglobin Concentration 35.6 32.0 - 36.5 gm/dL CERNER MILLENNIUM Platelet 270 145 - 370 x10(3)/mcL CERNER MILLENNIUM RDW Standard Deviation 39.9 35.0 - 46.0 fL CERNER MILLENNIUM RDW coefficient of variation 13.3 10.9 - 14.4 % CERNER MILLENNIUM Mean Platelet Volume 10.1 9.0 - 12.0 fL CERNER MILLENNIUM Blood specimen (specimen) 07/12/2013 10:57 AM EST 07/12/2013 11:06 AM EST Narrative Resulting Agency Comment Spec In Lab Urbano Loya MD HEMATOLOGY ORDERABLE S BENEDICT MCCLENDONENNIUM * (ABNORMAL) Basic Metabolic Panel (non-fasting) (07/12/2013 10:57 AM EST) Glucose 157 60 - 199 mg/dL CERNER MILLENNIUM Comment:Diabetes: >=200 mg/d L plus symptoms Blood Urea Nitrogen 28(H) 10 - 20 mg/dL CERNER MILLENNIUM Creatinine 1.86(H) 0.80 - 1.50 mg/dL CERNER MILLENNIUM Comment: Please note that the pediatric reference intervals supplied above were not validated at [facility]. Results from pediatric patients should be interpreted in conjunction to the patient's age, height and muscle mass. Sodium 138 135 - 145 mmol/L CERNER MILLENNIUM Potassium 3.3(L) 3.5 - 5.0 mmol/L CERNER MILLENNIUM Comment: Please note: ??Patients with WBC >100,000 may have falsely elevated Potassium levels. ??For accurate Potassium quantification in these patients send serum separator tube (gold top) for subsequent determinations. ??Contact the Clinical Chemistry Laboratory if there are any questions. Chloride 99 98 - 107 mmol/L CERNER MILLENNIUM Carbon Dioxide 27 22 - 31 mmol/L CERNER MILLENNIUM Anion Gap 12 5 - 15 mmol/L CERNER MILLENNIUM Calcium 9.2 8.5 - 10.5 mg/dL CERNER MILLENNIUM Est Glomerular Filtration Rate 37(L) >=60 CERNER MILLENNIUM Comment: This estimated GFR [...] internet browser. http://www.nkdep.nih.gov/lab-evaluation.shtml http://www.kidney.org/professionals/ Blood specimen (specimen) 07/12/2013 10:57 AM EST 07/12/2013 11:06 AM EST Narrative Resulting Agency Comment Spec In Lab Urbano Loya MD CHEMISTRY ORDERABLES Performing Organization Address [facility] de Phone Number CERNER MILLENNIUM * (ABNORMAL) Protein/Creatinine Ratio, urine (12/06/2012 10:51 AM EDT) Creatinine, Urine 164 mg/dL CERNER MILLENNIUM Protein, Urine 547(H) 0 - 12 mg/dL CERNER MILLENNIUM Protein / Creatinine Ratio, Urine 3.3 ratio CERNER MILLENNIUM Urine specimen (specimen) 12/06/2012 10:51 AM EDT 12/06/2012 10:54 AM EDT Narrative Resulting Agency Comment Spec In Lab Urbano Loya MD URINE ORDERABLES Performing Organization Address [facility] de Phone Number CERNER MILLENNIUM * (ABNORMAL) Urinalysis without microscopic [...] Urine Dipstick Clear Clear CERNER MILLENNIUM Specific [place] Urine Automated 1.014 1.002 - 1.030 CERNER MILLENNIUM Color, Urine Dipstick Yellow Yellow CERNER MILLENNIUM Urine specimen (specimen) URINE SPECIMEN OBTAINED BY CLEAN CATCH PROCEDURE / Unknown 12/06/2012 10:51 AM EDT 12/06/2012 10:54 AM EDT Narrative Resulting Agency Comment Spec In Lab Urbano Loya MD URINE ORDERABLES BENEDICT PEACOCKIUM * Differential, Automated (12/06/2012 10:34 AM EDT) Neutrophil % 64.3 34.0 - 71.0 % CERNER MILLENNIUM Neutrophil Absolute 5.59 1.50 - 6.30 x10(3)/mcL CERNER MILLENNIUM Lymph % 21.3 19.0 - 53.0 % CERNER MILLENNIUM Lymphocytes Abs 1.8 1.0 - 3.6 x10(3)/mcL CERNER MILLENNIUM Monocyte % 9.7 4.0 - 13.0 % CERNER MILLENNIUM Monocyte Abs 0.8 0.2 - 1.0 x10(3)/mcL CERNER MILLENNIUM Eos % 3.8 0.0 - 7.0 % CERNER MILLENNIUM Eosinophils Abs 0.3 0.0 - 0.5 x10(3)/mcL CERNER MILLENNIUM Basophil % 0.7 0.0 - 2.0 % CERNER MILLENNIUM Baso Absolute 0.1 0.0 - 0.2 x10(3)/mcL CERNER MILLENNIUM Immature Gran % 0.20 0.00 - 0.66 % CERNER MILLENNIUM Comment: Immature granulocytes(IG's)percentage and absolute count will include metamyelocytes, myelocytes, and promyelocytes. Blood smears from CBCs yielding IG's will be scanned manually for concordance. If this scan disagrees with the automated IG or if promyelocytes are noted, a manual differential will be performed. Immature Gran Absolute 0.02 0.00 - 0.05 x10(3)/mcL CERNER MILLENNIUM Blood specimen (specimen) 12/06/2012 10:34 AM EDT 12/06/2012 10:42 AM EDT Urbano Loya MD HEMATOLOGY ORDERABLE S BENEDICT PEACOCKIUM * Phosphorus (12/06/2012 10:34 AM EDT) Phosphorus 2.8 2.5 - 4.5 mg/dL CERNER MILLENNIUM Blood specimen (specimen) 12/06/2012 10:34 AM EDT 12/06/2012 10:42 AM EDT Narrative Resulting Agency Comment Spec In Lab Urbano Loya MD CHEMISTRY ORDERABLES Performing Organization Address City/[facility] Co de Phone Number BENEDICT PEACOCKIUM * (ABNORMAL) PTH (12/06/2012 10:34 AM EDT) Parathyroid Hormone 91(H) 15 - 65 pg/mL CERNER MILLENNIUM Blood specimen (specimen) 12/06/2012 10:34 AM EDT 12/06/2012 10:42 AM EDT Narrative Resulting Agency Comment Spec In Lab Urbano Loya MD CHEMISTRY ORDERABLES Performing Organization Address [facility] de Phone Number BENEDICT PEACOCKIUM * Albumin Level (12/06/2012 10:34 AM EDT) Albumin 4.0 3.2 - 5.2 gm/dL CERNER MILLENNIUM Blood specimen (specimen) 12/06/2012 10:34 AM EDT 12/06/2012 10:42 AM EDT Narrative Resulting Agency Comment Spec In Lab Urbano Loya MD CHEMISTRY ORDERABLES Performing Organization Address [facility] de Phone Number BENEDICT MCCLENDONENNIUM * CBC (with Diff) (12/06/2012 10:34 AM [...] Lab Urbano Loya MD HEMATOLOGY ORDERABLE S CERNER MILLENNIUM * (ABNORMAL) Basic Metabolic Panel (non-fasting) (12/06/2012 10:34 AM EDT) Glucose 119 60 - 199 mg/dL CERNER MILLENNIUM Comment:Diabetes: >=200 mg/d L plus symptoms Blood Urea Nitrogen 28(H) 10 - 20 mg/dL CERNER MILLENNIUM Creatinine 1.68(H) 0.80 - 1.50 mg/dL CERNER MILLENNIUM Comment: Please note that the pediatric reference intervals supplied above were not validated at [facility]. Results from pediatric patients should be interpreted [...] Loya MD CHEMISTRY ORDERABLES Performing Organization Address City/State/[facility] [place] Phone Number [facility] documented in this encounter Visit Diagnoses [...] (moderate) documented in this encounter Care Teams Stock Unloader Relationship Specialty Start Date End Date Urbano Denis DO [address] [place] [address] PCP - General 09/03/12 03/17/22 documented as of this encounter
--- OUTSIDE RECORDS SUMMARY | 2024-02-14 11:39 | XMS_ITS | Encounter Summary ---
Author Organization [facility] [place] [address] Care Team Providers Care Dray Driver Name Role Phone Urbano Denis DO Primary Care Provider Reason for Visit * Reason Onset Date Comments Medication Refill 02/20/2014 Encounter Details Date Type Department Care Team (Late st Contact Info) Description 02/20/2014 Refill [place] [address] Urbano Loya MD [facility] [place] [address] Hypertension (Primary Dx) Social History Tobacco Use Types [...] AM EDT Hospital Encounter Non-Invasive [place] [phone] Arrived documented as of this encounter Visit Diagnoses Diagnosis Hypertension- Primary Unspecified essential hypertension documented in this encounter Care Teams Dray Driver Relationship Specialty Start Date End Date Urbano Denis DO [address] [place] [address] PCP - General 09/03/12 03/17/22 documented as of this encounter
--- OUTSIDE RECORDS SUMMARY | 2024-02-14 11:39 | XMS_ITS | Encounter Summary ---
Author Organization [facility] [place] [address] Care Team Providers Care Coupler Name Role Phone Urbano Denis DO Primary Care Provider [phone] Encounter Details Date Type Department Care Team (Late st Contact Info) Description 10/27/2013 10:00 AM EDT Follow-Up Nephrology [place] [address] CLINIC, Urbano Milian MD [facility] [address] CKD (chronic kidney disease) stage 3, GFR 30-59 ml/min (Primary Dx); Hypertension; H/O hematuria; Proteinuria; DM type 2 (diabetes mellitus, type 2); Hyperparathyroidism Discharge Disposition: Home Social History Tobacco Use Types Packs/Day Years Used Date Smoking Tobacco: Former Sex and Gender Information Value Date Recorded Sex Assigned at Not on file Gender Identity Not on file Sexual Orientation Not on file documented as of this encounter Last Filed Vital Signs Vital Sign Reading Time Taken Comments Blood Pressure 167/101 10/27/2013 9:49 AM EDT Pulse 62 10/27/2013 9:49 AM EDT Temperature - - Respiratory Rate - - Oxygen Saturation - - Inhaled Oxygen Concentration - - Weight 108.9 kg (240 lb) 10/27/2013 9:49 AM EDT Height - - Body Mass Index - - documented in this encounter Progress Notes * Urbano Loya MD - 10/27/2013 10:05 AM EDT Nephrology/Hypertension Clinic Follow-up Note [id number] ID: 63 y.o.year-old male for follow up of CKD. Past Medical History: 1. Type 2 DM 2. Hypertension 3. Microhematuria 4. H/o colon polyp 5. D/p rotator cuff repair 6. GERD 7. S/p right knee surgery 8. CKD - felt secondary to diabetic nephropathy 9. BPH Outpatient Encounter Prescriptions as of 10/27/2013 Medication Sig Dispense Refill ??? doxazosin (CARDURA) 2 mg tablet Take 1 tablet by mouth nightly. 90 tablet 3 ??? metFORMIN (GLUCOPHAGE) 500 mg tablet Take [...] mg per tablet No Known Allergies S: Doing well since last visit although has gained weight and his blood pressure remains high. No chest pain, dyspnea, n/v, dysuria. O: Filed Vitals: 10/27/13 0949 BP: 167/101 Pulse: 62 Weight: 108.863 kg (240 lb) General: Obese male NAD Eye: Conjunctivae clear ENT: No external lesions Neck: S/NT CV: S1S2, reg, no m/g/r Resp: CTA Abd: S/NT Ext: Tr-1+ edema Skin: Warm/dry Labs: Recent Results (from the past 72 hour(s)) CBC (WITH DIFF) Component Value Range WBC 8.0 4.0 - 10.0 x10(3)/mcL RBC 4.95 4.63 - 6.08 x10(6)/mcL Hemoglobin 14.6 13.7 - 17.5 gm/dL Hematocrit 41.6 40.0 - 51.0 % MCV 84.0 79.0 - 92.0 fL MCH 29.5 25.6 - 32.2 pg MCHC 35.1 32.0 - 36.5 gm/dL Platelets 288 145 - 370 x10(3)/mcL RDWSD 39.3 35.0 - 46.0 fL RDWCV 13.0 10.9 - 14.4 % MPV 9.9 9.0 - 12.0 fL DIFFERENTIAL, AUTOMATED Component Value Range Neutrophils % 67.5 34.0 - 71.0 % Neutr Abs (ANC) 5.40 1.50 - 6.30 x10(3)/mcL Lymphocytes % 21.8 19.0 - 53.0 % Lymphocytes Abs 1.8 1.0 - 3.6 x10(3)/mcL Monocytes % 6.4 4.0 - 13.0 % Monocyte Abs 0.5 0.2 - 1.0 x10(3)/mcL Eosinophils % 3.5 0.0 - 7.0 % Eosinophils Abs 0.3 0.0 - 0.5 x10(3)/mcL Basophils % 0.7 0.0 - 2.0 % Basophils Abs 0.1 0.0 - 0.2 x10(3)/mcL Immature Gran % 0.10 0.00 - 0.66 % Ayesha Gran Abs 0.01 0.00 - 0.05 x10(3)/mcL Renal US visualized personally. Few simple renal cysts; no obstruction. A/P: 1. Renal: stage 3 CKD. Cr continues to rise slowly. BP and proteinuria remain poorly controlled. Heis on maximal ARB therapy. PTH slightly above target range. Likely diabetic nephropathy but membranous or FSGS are conceivable. - increase doxazosin to 4mg QHS - encourage weight loss efforts - f/u 3 months. If Cr continues to rise or if he becomes frankly nephrotic will discuss renal biopsy. CC: URBANO DENIS DO @[email or web address]@ documented in this encounter Plan of Treatment Upcoming Encounters Date Type Department Care Team (Late st Contact Info) Description 04/15/2024 10:00 AM EDT Hospital Encounter Non-[place] [address] Arrived documented as of this encounter Procedures Procedure Name Priority Date/Time Associated Diagnosis Comments PROTEIN/CREATININE RATIO, URINE Routine 10/27/2013 9:39 AM EDT Hypertension H/O hematuria Proteinuria DM type 2 (diabetes mellitus, type 2) CKD (chronic kidney disease) stage 3, GFR 30-59 ml/min Hyperparathyroidism PTH Routine 10/27/2013 9:37 AM EDT Hypertension H/O hematuria Proteinuria DM type 2 (diabetes mellitus, type 2) CKD (chronic kidney disease) stage 3, GFR 30-59 ml/min Hyperparathyroidism DIFFERENTIAL, AUTOMATED Routine 10/27/2013 9:37 AM EDT VITAMIN D, 25-HYDROXY Routine 10/27/2013 9:37 AM EDT Hypertension H/O hematuria Proteinuria DM type 2 (diabetes mellitus, type 2) CKD (chronic kidney disease) stage 3, GFR 30-59 ml/min Hyperparathyroidism CBC (WITH DIFF) Routine 10/27/2013 9:37 AM EDT Hypertension H/O hematuria Proteinuria DM type 2 (diabetes mellitus, type 2) CKD (chronic kidney disease) stage 3, GFR 30-59 ml/min Hyperparathyroidism PHOSPHORUS Routine 10/27/2013 9:37 AM EDT Hypertension H/O hematuria Proteinuria DM type 2 (diabetes mellitus, type 2) CKD (chronic kidney disease) stage 3, GFR 30-59 ml/min Hyperparathyroidism HEMOGLOBIN A1C Routine 10/27/2013 9:37 AM EDT Hypertension H/O hematuria Proteinuria DM type 2 (diabetes mellitus, type 2) CKD (chronic kidney disease) stage 3, GFR 30-59 ml/min Hyperparathyroidism ALBUMIN LEVEL Routine 10/27/2013 9:37 AM EDT Hypertension H/O hematuria Proteinuria DM type 2 (diabetes mellitus, type 2) CKD (chronic kidney disease) stage 3, GFR 30-59 ml/min Hyperparathyroidism BASIC METABOLIC PANEL Routine 10/27/2013 9:37 AM EDT Hypertension H/O hematuria Proteinuria DM type 2 (diabetes mellitus, type 2) CKD (chronic kidney disease) stage 3, GFR 30-59 ml/min Hyperparathyroidism documented in this encounter Results * (ABNORMAL) Protein/Creatinine Ratio, urine (05/22/2014 10:16 [...] Urine Dipstick Hazy(A) Clear CERNER MILLENNIUM Specific [place] Urine Automated 1.015 1.002 - 1.030 CERNER MILLENNIUM Color, Urine Dipstick Yellow Yellow CERNER MILLENNIUM Urine specimen (specimen) URINE SPECIMEN OBTAINED BY CLEAN CATCH PROCEDURE / Unknown 05/22/2014 10:16 AM EST 05/22/2014 10:25 AM EST Narrative Resulting Agency Comment Spec In Lab Urbano Loya MD URINE ORDERABLES Performing Organization Address City/[facility]/ZIP Co de Phone Number [facility] * Cholesterol, total (05/22/2014 10:13 AM EST) Cholesterol, Total 166 <=199 mg/dL [facility] Comment: Recommendations of the NCEP Adult Treatment Panel for the following risk cutoff thresholds for the [place] population: Desirable: <200 mg/dL Borderline High: 200-239 mg/dL High: > or = 240 mg/dL Blood specimen (specimen) 05/22/2014 10:13 AM EST 05/22/2014 10:22 AM EST Narrative Resulting Agency Comment Spec In Lab Urbano Loya MD CHEMISTRY ORDERABLES Performing Organization Address [facility] de Phone Number [facility] * Hemoglobin A1c (05/22/2014 10:13 AM EST) Hemoglobin A1c 5.6 <=5.6 % [facility] Comment: Reference Range: 4.3 - 5.6% [...] Mellitus, Diabetes Care 2013; 36: Suppl. 1, L77-86 Estimated Average Glucose 114 mg/dL [facility] Comment: eAG equivalents for HbA1c percentages: HbA1c(%) ?eAG(mg/dL) 6.0 ?126 6.5 ?140 7.0 ?154 7.5 ?169 8.0 ?183 8.5 ?197 9.0 ?212 9.5 ?226 10.0 ? 240 Limitations: The eAG calculation has not been validated on women, individuals below 18 years old and above 70 years old, and individuals with hemoglobinopathies. Additional resources are available on the ADA website: http://[employer]uck.[employer]/DHMCadacalc Harjeet MENDOSA, Chanel J, Philip R, et al. ??Translating the A1C assay into estimated average glucose values. ??Diabetes Care 2008:31(8):8795-7110. Blood specimen (specimen) 05/22/2014 10:13 AM EST 05/22/2014 10:22 AM EST Narrative Resulting Agency Comment Spec In Lab Urbano Loya MD CHEMISTRY ORDERABLES Performing Organization Address [facility] de Phone Number CERROSALINA YuanVENNIUM * Phosphorus (05/22/2014 10:13 AM EST) Phosphorus 3.7 2.5 - 4.5 mg/dL CERNER MILLENNIUM Blood specimen (specimen) 05/22/2014 10:13 AM EST 05/22/2014 10:22 AM EST Narrative Resulting Agency Comment Spec In Lab Urbano Loya MD CHEMISTRY ORDERABLES Performing Organization Address [facility] de Phone Number CERROSALINA MCCLENDONENNIUM * Albumin Level (05/22/2014 10:13 AM EST) Albumin 3.5 3.2 - 5.2 gm/dL CERNER MILLENNIUM Blood specimen (specimen) 05/22/2014 10:13 AM EST 05/22/2014 10:22 AM EST Narrative Resulting Agency Comment Spec In Lab Urbano Loya MD CHEMISTRY ORDERABLES Performing Organization Address [facility] Co de Phone Number CERNER DANELLEENNIUM * (ABNORMAL) PTH (05/22/2014 10:13 AM EST) Parathyroid Hormone 153(H) 15 - 65 pg/mL CERNER MILLENNIUM Blood specimen (specimen) 05/22/2014 10:13 AM EST 05/22/2014 10:22 AM EST Narrative Resulting Agency Comment Spec In Lab Urbano Loya MD CHEMISTRY ORDERABLES CERNER DANELLEENNIUM * (ABNORMAL) Basic Metabolic Panel (non-fasting) (05/22/2014 10:13 AM EST) Glucose 124 60 - 199 mg/dL CERNER MILLENNIUM Comment:Diabetes: [...] the following links into your internet browser. [email or web address] Blood specimen (specimen) 05/22/2014 10:13 AM EST 05/22/2014 10:22 AM EST Narrative Resulting Agency Comment Spec In Lab Urbano Loya MD CHEMISTRY ORDERABLES Performing Organization Address City/[facility] Co de Phone Number CERNER MILLENNIUM * (ABNORMAL) Protein/Creatinine Ratio, urine (10/27/2013 9:39 AM EDT) Creatinine, Urine 121 mg/dL CERNER MILLENNIUM Protein, Urine 575(H) 0 - 12 mg/dL CERNER MILLENNIUM Protein / Creatinine Ratio, Urine 4.8 ratio CERNER MILLENNIUM Urine specimen (specimen) 10/27/2013 9:39 AM EDT 10/27/2013 9:44 AM EDT Narrative Resulting Agency Comment Spec In Lab Urbano Loya MD URINE ORDERABLES Performing Organization Address [facility] de Phone Number CERNER MILLENNIUM * Differential, Automated (10/27/2013 9:37 AM EDT) Neutrophil % 67.5 34.0 - 71.0 % CERNER MILLENNIUM Neutrophil Absolute 5.40 1.50 - 6.30 x10(3)/mcL CERNER MILLENNIUM Lymph % 21.8 19.0 - 53.0 % CERNER MILLENNIUM Lymphocytes Abs 1.8 1.0 - 3.6 x10(3)/mcL CERNER MILLENNIUM Monocyte % 6.4 4.0 - 13.0 % CERNER MILLENNIUM Monocyte Abs 0.5 0.2 - 1.0 x10(3)/mcL CERNER MILLENNIUM Eos % 3.5 0.0 - 7.0 % CERNER MILLENNIUM Eosinophils [...] 0.05 x10(3)/mcL CERNER MILLENNIUM Blood specimen (specimen) 10/27/2013 9:37 AM EDT 10/27/2013 9:45 AM EDT Urbano Loya MD HEMATOLOGY ORDERABLE S [facility] * (ABNORMAL) Hemoglobin A1c (10/27/2013 9:37 AM EDT) Hemoglobin A1c 6.2(H) <=5.6 % CERAYAD R MILLENNIUM Comment: As of 2013 the methodology for Hemoglobin A1c testing has changed. This change is accompanied by a new interpretive statement and flags. Please review the new interpretive statement and contact Dr. Galicia or Dr. Raygoza with questions. Reference Range: 4.3 ? 5.6% 5.7 ? 6.4% - Increased Risk of Developing Diabetes Mellitus 6.5% - Consistent with diagnosis of Diabetes Mellitus In the absence of hyperglycemia (i.e. plasma glucose > 200 mg/dL) or classic symptoms of hyperglycemia a repeat measurement of HbA1c should be performed on a separate sample to confirm the diagnosis. Diagnosis and Classification of Diabetes Mellitus, Diabetes Care 2013; 36: Suppl. 1, K56-09 Estimated Average Glucose 131 mg/dL [facility] Comment: eAG equivalents for HbA1c percentages: HbA1c(%) ?eAG(mg/dL) 6.0 ?126 6.5 ?140 7.0 ?154 7.5 ?169 8.0 ?183 8.5 ?197 9.0 ?212 9.5 ?226 10.0 ? 240 Limitations: The eAG calculation has not been validated on women, individuals below 18 years old and above 70 years old, and individuals with hemoglobinopathies. Additional resources are available on the ADA website: ??http://professional.diabetes.org/glucosecalculator.aspx Harjeet MENDOSA, Chanel J, Philip R, et al. ??Translating the A1C assay into estimated average glucose values. ??Diabetes Care 2008:31(8):1753-7278. Blood specimen (specimen) 10/27/2013 9:37 AM EDT 10/27/2013 9:45 AM EDT Narrative Resulting Agency Comment Spec In Lab Urbano Loya MD CHEMISTRY ORDERABLES Performing Organization Address [facility]/State/ZIP Co de Phone Number [facility] * (ABNORMAL) VIT D Total Evaluation (10/27/2013 9:37 AM EDT) Vitamin D Total 25 OH 20(L) 30 - 100 ng/mL [facility] Comment: Deficient <10 ng/mL Insufficient 10 to 29 ng/mL Sufficient 30 to 100 ng/mL Potential Intoxication >100 ng/mL According to the US National Osteoporosis Foundation, Vitamin D concentrations >30 ng/mL are sufficient to protect bone health. ??The National Kidney Foundation has similarly stated that patients with Vitamin D concentrations <30ng/mL should be considered to be insufficient or deficient. http://www.kidney.org/professionals/KDOQI/guidelines_bone/Guide7.htm http://nof.org/files/nof/public/content/clinicalupdates/clinicalupdates/Issue2 5VitaminD/2012_VitaminD.html The IDS iSYS Vitamin D Immunoassay detects both 25-OH Vitamin D2 and 25-OH Vitamin D3, but only a total Vitamin D concentration is reported. Blood specimen (specimen) 10/27/2013 9:37 AM EDT 10/27/2013 9:45 AM EDT Narrative Resulting Agency Comment Spec In Lab Urbano Loya MD CHEMISTRY ORDERABLES Performing Organization Address [facility] Co de Phone Number [facility] D[facility]ELLECLEARSKY [facility] * Phosphorus (10/27/2013 9:37 AM EDT) Phosphorus 3.1 2.5 - 4.5 mg/dL [facility] Blood specimen (specimen) 10/27/2013 9:37 AM EDT 10/27/2013 9:45 AM EDT Narrative Resulting Agency Comment Spec In Lab Urbano Loya MD CHEMISTRY ORDERABLES Performing Organization Address [facility] de Phone Number [facility] * Albumin Level (10/27/2013 9:37 AM EDT) Albumin 3.5 3.2 - 5.2 gm/dL [facility] Blood specimen (specimen) 10/27/2013 9:37 AM EDT 10/27/2013 9:45 AM EDT Narrative Resulting Agency Comment Spec In Lab Urbano Loya MD CHEMISTRY ORDERABLES Performing Organization Address [facility] Co de Phone Number [facility] * (ABNORMAL) PTH (10/27/2013 9:37 AM EDT) Parathyroid Hormone 95(H) 15 - 65 pg/mL [facility] Blood specimen (specimen) 10/27/2013 9:37 AM EDT 10/27/2013 9:45 AM EDT Narrative Resulting Agency Comment Spec In Lab Urbano Loya MD CHEMISTRY ORDERABLES BENEDICT PEACOCKI[facility] * CBC (with Diff) (10/27/2013 9:37 AM EDT) White Blood Cell 8.0 4.0 - 10.0 x10(3)/mcL CERNER MILLENNIUM Red Blood Cell 4.95 4.63 - 6.08 x10(6)/mcL CERNER MILLENNIUM Hemoglobin 14.6 13.7 - 17.5 gm/dL CERNER MILLENNIUM Hematocrit 41.6 40.0 - 51.0 % CERNER MILLENNIUM Mean Cell Volume 84.0 79.0 - 92.0 fL CERNER MILLENNIUM Mean Cell Hemoglobin 29.5 25.6 - 32.2 pg CERNER MILLENNIUM Mean Cell Hemoglobin Concentration 35.1 32.0 - 36.5 gm/dL CERNER MILLENNIUM Platelet 288 145 - 370 x10(3)/mcL CERNER MILLENNIUM RDW Standard Deviation 39.3 35.0 - 46.0 fL CERNER MILLENNIUM RDW coefficient of variation 13.0 10.9 - 14.4 % CERNER MILLENNIUM Mean Platelet Volume 9.9 9.0 - 12.0 fL CERNER MILLENNIUM Blood specimen (specimen) 10/27/2013 9:37 AM EDT 10/27/2013 9:45 AM EDT Narrative Resulting Agency Comment Spec In Lab Urbano Loya MD HEMATOLOGY ORDERABLE S Performing Organization Address [facility] Co de Phone Number BENEDICT COOK * (ABNORMAL) Basic Metabolic Panel (non-fasting) (10/27/2013 9:37 AM EDT) Glucose 95 60 - 199 mg/dL CERNER MILLENNIUM Comment:Diabetes: >=200 mg/d L plus symptoms Blood Urea Nitrogen 39(H) 10 - 20 mg/dL CERNER MILLENNIUM Creatinine 2.05(H) 0.80 - 1.50 mg/dL CERNER MILLENNIUM Comment: Please note that the pediatric reference intervals supplied above were not validated at [facility]. Results from pediatric patients should be interpreted in conjunction to the patient's age, height and muscle mass. Sodium 142 135 - 145 mmol/L CERNER MILLENNIUM Potassium 3.4(L) 3.5 - 5.0 mmol/L CERNER MILLENNIUM Comment: [...] - 31 mmol/L CERNER MILLENNIUM Anion Gap 8 5 - 15 mmol/L CERNER MILLENNIUM Calcium 9.2 8.5 - 10.5 mg/dL CERNER MILLENNIUM Est Glomerular Filtration Rate 33(L) >=60 CERNER MILLENNIUM Comment: This estimated GFR [...] internet browser. http://www.nkdep.nih.gov/lab-evaluation.shtml http://www.kidney.org/professionals/ Blood specimen (specimen) 10/27/2013 9:37 AM EDT 10/27/2013 9:45 AM EDT Narrative Resulting Agency Comment Spec In Lab Urbano Loya MD CHEMISTRY ORDERABLES BENEDICT COOK documented in this encounter Visit Diagnoses Diagnosis CKD (chronic kidney disease) stage 3, GFR 30-59 ml/min- Primary Chronic kidney disease, Stage III (moderate) Hypertension Unspecified essential hypertension H/O hematuria Personal history of other disorder of urinary system Proteinuria DM type 2 (diabetes mellitus, type 2) Type II or unspecified type diabetes mellitus without mention of complication, not stated as uncontrolled Hyperparathyroidism Hyperparathyroidism, unspecified documented in this encounter Care Teams Coupler Relationship Specialty Start Date End Date Urbano Denis DO [address] [place] [address] [address] [facility] [address] [place] [address] PCP - General 09/03/12 03/17/22 documented as of this encounter
--- OUTSIDE RECORDS SUMMARY | 2024-02-14 11:39 | XMS_ITS ---
[place] [address] Care Team Providers Care Press Hand Supervisor Name Role Phone Urbano Jimenez DO Primary Care Provider [phone] Transplant Episode Kidney Recipient [facility] ([place], [place]) - [facility] Organ Received: Right Kidney Transplanted on 09/16/2015 Marked as Active Follow-up on 09/16/2015 Reason: Donor Transplant Kidney CoordinatorMarisela Metcalf RN Phone: N/A Fax: N/A Email: N/A Donor Information Organ ABO Source Meets Risk Criteria HLA Match Mismatches Cross Match Right Kidney Transplanted A1 DBD A: B: DR: Right Kidney Donor Serology Results Anti-HBcAb No results on file HBsAg No results on file HBsAb No results on file HBV DNA No results on file Anti-HCV No results on file Anti-CMV No results on file Anti-HTLV I/II No results on file RPR/VDRL No results on file EBV IgG No results on file EBV IgM No results on file EBNA No results on file Care Team Name Role Phone Fax Email Marisela Metcalf RN Kidney Coordinator N/A N/A N/A Jomar Franco MD Diver Helper Referring Physician N/A N/A N/A Urbano Denis DO PCP N/A N/A N/A Events Post-Transplant Pre-Transplant Admitted: 09/16/2015 Referred: 01/15/2015 Transplanted: 09/16/2015 Evaluation began: 5 Discharged: 09/20/2015 UNOS qualified: 01/11/2015 Center waitlisted: 6 Dialysis History Dialysis History Start End Type Comments Center 01/11/2015 MON, WED, [facility] Dialysis Center Information Center Phone Fax Address [facility] [phone] [place] [address] [place] [address]
--- OUTSIDE RECORDS SUMMARY | 2024-02-14 11:39 | XMS_ITS | Encounter Summary ---
Author Organization [facility] [place] [address] Care Team Providers Care Fire Extinguisher Charger Name Role Phone Urbano Denis DO Primary Care Provider Reason for Visit * Reason Onset Date Comments Medication Refill 07/12/2013 Encounter Details Date Type Department Care Team (Late st Contact Info) Description 07/12/2013 Refill Nephrology [place] [address] Urbano Loya MD [facility] [place] [address] Social History Tobacco Use Types Packs/Day Years [...] AM EDT Hospital Encounter Non[place] [id number] Arrived documented as of this encounter Visit Diagnoses Not on filedocumented in this encounter Care Teams Fire Extinguisher Charger Relationship Specialty Start Date End Date Urbano Denis DO [address] [place] [address] PCP - General 3/1/13 9/12/22 documented as of this encounter
--- OUTSIDE RECORDS SUMMARY | 2024-02-14 11:39 | XMS_ITS | Encounter Summary ---
Author Organization [facility] [place] [address] Care Team Providers Care Nuclear Process Engineer Name Role Phone Albania Denis DO Primary Care Provider Encounter Details Date Type Department Care Team (Late st Contact Info) Description 07/12/2013 11:30 AM EST Follow-Up Nephrology [place] [address] Albania Schmid MD [facility] [place] [address] CKD (chronic kidney disease) stage 3, GFR [...] Sign Reading Time Taken Comments Blood Pressure 157/93 07/12/2013 11:15 AM EST Pulse 63 07/12/2013 11:15 AM EST Temperature - - Respiratory Rate - - Oxygen Saturation - - Inhaled Oxygen Concentration - - Weight 103.9 kg (229 lb) 07/12/2013 11:15 AM EST Height - - Body Mass Index - - documented in this encounter Progress Notes * Albania Schmid MD - 07/12/2013 12:03 PM EST Nephrology/Hypertension Clinic Follow-up Note [id number] ID: 62 y.o.year-old male for follow up of CKD. Past Medical History: 1. Type 2 DM 2. Hypertension 3. Microhematuria 4. H/o colon polyp 5. D/p rotator cuff repair 6. GERD 7. S/p right knee surgery 8. CKD - felt secondary to diabetic nephropathy 9. BPH Outpatient Encounter Prescriptions as of 07/12/2013 Medication Sig Dispense Refill ??? doxazosin (CARDURA) 1 mg tablet Take 1 tablet by mouth [...] Allergies S: Feeling well since last visit. He is bothered by nocturia every 2-3 hours at night. Currently taking all his antihypertensives at night. He believes he is on both hyzaar and losartan, but is unclear on the dose of either. No chest pain, dyspnea, n/v, dysuria, gross hematuria. O: Filed Vitals: 07/12/13 1115 BP: 157/93 Pulse: 63 Weight: 103.874 kg (229 lb) General: WDWN male NAD Eye: Conjunctivae clear ENT: No external lesions Neck: S/NT CV: S1S2, reg, no m/g/r Resp: CTA Abd: S/NT Ext: No edema Skin: Warm/dry Neuro: ORTIZ well, EOMI, speech intact, gait/station normal Psych: A&O, affect appropriate Labs: Recent Results (from the past 72 hour(s)) BASIC METABOLIC PANEL (NON-FASTING) Component Value Range Glucose Lvl 157 60 - 199 mg/dL BUN 28 (*) 10 - 20 mg/dL Creatinine 1.86 (*) 0.80 - 1.50 mg/dL Sodium 138 135 - 145 mmol/L Potassium 3.3 (*) 3.5 - 5.0 mmol/L Chloride 99 98 - 107 mmol/L CO2 27 22 - 31 mmol/L Anion Gap 12 5 - 15 mmol/L Calcium 9.2 8.5 - 10.5 mg/dL Estimated GFR 37 (*) >=60 CBC (WITH DIFF) Component Value Range WBC 8.1 4.0 - 10.0 x10(3)/mcL RBC 4.89 4.63 - 6.08 x10(6)/mcL Hemoglobin 14.4 13.7 - 17.5 gm/dL Hematocrit 40.5 40.0 - 51.0 % MCV 82.8 79.0 - 92.0 fL MCH 29.4 25.6 - 32.2 pg MCHC 35.6 32.0 - 36.5 gm/dL Platelets 270 145 - 370 x10(3)/mcL RDWSD 39.9 35.0 - 46.0 fL RDWCV 13.3 10.9 - 14.4 % MPV 10.1 9.0 - 12.0 fL PTH Component Value Range PTH 73 (*) 15 - 65 pg/mL ALBUMIN LEVEL Component Value Range Albumin 3.8 3.2 - 5.2 gm/dL PHOSPHORUS Component Value Range Phosphorus 2.8 2.5 - 4.5 mg/dL DIFFERENTIAL, AUTOMATED Component Value Range Neutrophils % 64.2 34.0 - 71.0 % Neutr Abs (ANC) 5.21 1.50 - 6.30 x10(3)/mcL Lymphocytes % 25.0 19.0 - 53.0 % Lymphocytes Abs 2.0 1.0 - 3.6 x10(3)/mcL Monocytes % 6.0 4.0 - 13.0 % Monocyte Abs 0.5 0.2 - 1.0 x10(3)/mcL Eosinophils % 4.1 0.0 - 7.0 % Eosinophils Abs 0.3 0.0 - 0.5 x10(3)/mcL Basophils % 0.6 0.0 - 2.0 % Basophils Abs 0.0 0.0 - 0.2 x10(3)/mcL Immature Gran % 0.10 0.00 - 0.66 % Ayesha Gran Abs 0.01 0.00 - 0.05 x10(3)/mcL A/P: 1. Renal: Stage 3 CKD. Cr has been slowly rising over the past year without clear precipitant. Mildhypokalemia and no edema on exam; may be somewhat overdiuresed but BP is still elevated. Proteinuria is improved. - will ask Dr. Denis to recheck BMP in a few weeks. He may need to stop metformin if Cr remains> 1.8. If hypokalemia or Cr worsen, would hold HCTZ and repeat in 2 weeks. - avoid nephrotoxins, including NSAIDS. - f/u 3 months with renal US to r/o any obstructive component 2. Hypertension: BP remains above target range. - change hyzaar to AM dosing in hopes of preventing nocturia - increase doxazosin to 2mg QHS 3. Hyperparathyroidism: PTH improved from last visit but still mildly above target range for stage 3 CKD. - recheck PTH at next visit - check vit D levels 4. Hematuria: Urologic evaluation negative to date and only tr dipstick positivity with no rbc on last check. - repeat UA at next visit to screen for recurrence CC: ALBANIA DENIS DO @[email or web address]@ documented in this encounter Plan of Treatment Upcoming Encounters Date Type Department Care Team (Late st Contact Info) Description 04/15/2024 10:00 AM EDT Hospital Encounter Non-Invasive [place] [address] Arrived documented as of this encounter Procedures Procedure Name Priority Date/Time Associated Diagnosis Comments PTH Routine 07/12/2013 10:57 AM EST Hypertension H/O hematuria Proteinuria DM type 2 (diabetes mellitus, type 2) CKD (chronic kidney disease) stage 3, GFR 30-59 ml/min DIFFERENTIAL, AUTOMATED Routine 07/12/2013 10:57 AM EST PROTEIN/CREATININE RATIO, URINE Routine 07/12/2013 10:57 AM EST Hypertension H/O hematuria Proteinuria DM type 2 (diabetes mellitus, type 2) CKD (chronic kidney disease) stage 3, GFR 30-59 ml/min CBC (WITH DIFF) Routine 07/12/2013 10:57 AM EST Hypertension H/O hematuria Proteinuria DM type 2 (diabetes mellitus, type 2) CKD (chronic kidney disease) stage 3, GFR 30-59 ml/min PHOSPHORUS Routine 07/12/2013 10:57 AM EST Hypertension H/O hematuria Proteinuria DM type 2 (diabetes mellitus, type 2) CKD (chronic kidney disease) stage 3, GFR 30-59 ml/min ALBUMIN LEVEL Routine 07/12/2013 10:57 AM EST Hypertension H/O hematuria Proteinuria DM type 2 (diabetes mellitus, type 2) CKD (chronic kidney disease) stage 3, GFR 30-59 ml/min BASIC METABOLIC PANEL Routine 07/12/2013 10:57 AM EST Hypertension H/O hematuria Proteinuria DM type 2 (diabetes mellitus, type 2) CKD (chronic kidney disease) stage 3, GFR 30-59 ml/min documented in this encounter Results * (ABNORMAL) Protein/Creatinine Ratio, urine (10/27/2013 9:39 AM EDT) Creatinine, Urine 121 mg/dL [facility] Protein, Urine 575(H) 0 - 12 mg/dL [facility] MILLEN[facility] Protein / Creatinine Ratio, Urine 4.8 ratio [facility]ILL[facility] Urine specimen (specimen) 10/27/2013 9:39 AM EDT 10/27/2013 9:44 AM EDT Narrative Resulting Agency Comment Spec In Lab Albania Schmid MD URINE ORDERABLES [facility] JOEY * (ABNORMAL) Hemoglobin A1c (10/27/2013 9:37 AM EDT) Hemoglobin A1c 6.2(H) <=5.6 % SONJA COOK Comment: As of 2013 the methodology for [...] Mellitus, Diabetes Care 2013; 36: Suppl. 1, [id number] Estimated Average Glucose 131 mg/dL [facility] Comment: eAG equivalents for HbA1c percentages: HbA1c(%) [...] into estimated average glucose values. ??Diabetes Care 2008:31(8):7333-7059. Blood specimen (specimen) 10/27/2013 9:37 AM EDT 10/27/2013 9:45 AM EDT Narrative Resulting Agency Comment Spec In Lab Albania Schmid MD CHEMISTRY ORDERABLES [facility] * (ABNORMAL) VIT D Total Evaluation (10/27/2013 9:37 AM EDT) Vitamin D Total 25 OH 20(L) 30 - 100 ng/mL [facility] Comment: Deficient <10 ng/mL Insufficient 10 to [...] Schmid MD CHEMISTRY ORDERABLES Performing Organization Address [facility] Co de Phone Number [facility] * Phosphorus (10/27/2013 9:37 AM EDT) Phosphorus 3.1 2.5 - 4.5 mg/dL [facility] Blood specimen (specimen) 10/27/2013 9:37 AM EDT 10/27/2013 9:45 AM EDT Narrative Resulting Agency Comment Spec In Lab Albania Schmid MD CHEMISTRY ORDERABLES Performing Organization Address [facility] Co de Phone Number [facility] * Albumin Level (10/27/2013 9:37 AM EDT) Albumin 3.5 3.2 - 5.2 gm/dL [facility] Blood specimen (specimen) 10/27/2013 9:37 AM EDT 10/27/2013 9:45 AM EDT Narrative Resulting Agency Comment Spec In Lab Albania Schmid MD CHEMISTRY ORDERABLES [facility] * (ABNORMAL) PTH (10/27/2013 9:37 AM EDT) Parathyroid Hormone 95(H) 15 - 65 pg/mL [facility] MILLENNIUM Blood specimen (specimen) 10/27/2013 9:37 AM EDT 10/27/2013 9:45 AM EDT Narrative Resulting Agency Comment Spec In Lab Ablania Schmid MD CHEMISTRY ORDERABLES Performing Organization Address City/[facility] Co de Phone Number [facility] * CBC (with Diff) (10/27/2013 9:37 AM [...] Lab Albania Schmid MD HEMATOLOGY ORDERABLE S [facility]ER DANELLEENNIUM * (ABNORMAL) Basic Metabolic Panel (non-fasting) (10/27/2013 9:37 AM EDT) [facility] Signature Glucose 95 60 - 199 mg/dL [facility] MILLENNIUM Comment:Diabetes: >=200 mg/d L plus symptoms Blood Urea Nitrogen 39(H) 10 - 20 mg/dL [facility] MILLENNIUM Creatinine 2.05(H) 0.80 - 1.50 mg/dL [facility] MILLENNIUM Comment: Please note that the pediatric reference intervals supplied above [place] [facility] Results from [place] patients should be interpreted [...] Schmid MD CHEMISTRY ORDERABLES Performing Organization Address City/State[place] Phone Number [facility] * retroperitoneal complete (10/27/2013 9:15 AM EDT) Anatomical Region Laterality Modality Abdomen Ultrasound 10/27/2013 9:15 AM EDT Narrative 10/27/2013 10:26 AM EDT ? Renal ? (Signed Final 10/27/2013 10:25 am) Patient Info ID: ? [id number] ? : [birth year] (63 yrs) Name: ? ETHEL Patricia AKINS ? Visit Date: 10/27/2013 09:11 am Performed By Performed By: ?Amanda Ahuja RDMS Associate: ? Jewel GERBER, Kameron Dennison Attending: ? Preeti Holloway MD Referred By: ? ALBANIA SCHMID MD Service(s) Provided URETRO - Retroperitoneal Complete - [id number] ? [id number] Indications 62 year old male with microhematuria [...] Final 10/27/2013 10:25 am) Patient Info ID: [id number] : [birth year] (63 yrs) Name: ETHEL AKINS Visit Date: 10/27/2013 09:11 am Performed By Performed By: Amanda Ahuja RDMS Associate: Kameron Holloway MD Attending: Preeti Holloway MD Referred By: ALBANIA SCHMID MD Service(s) Provided URETRO - Retroperitoneal Complete - [id number] Indications 62 year old male with microhematuria [...] Film and interpretation reviewed by the attending Albania Schmid MD IMG US GEN ORDERABLE S * Differential, Automated (07/12/2013 10:57 AM EST) Neutrophil % 64.2 34.0 - 71.0 % [facility]ER MILLENNIUM Neutrophil Absolute 5.21 1.50 - 6.30 x10(3)/mcL [facility] MILLENNIUM Lymph % 25.0 19.0 - 53.0 % [facility]ERNER MILLENNIUM Lymphocytes Abs 2.0 1.0 - 3.6 x10(3)/mcL [facility]ER MILLENNIUM Monocyte % 6.0 4.0 - 13.0 % CERNER MILLENNIUM Monocyte Abs 0.5 0.2 - 1.0 x10(3)/mcL [facility] MILLENNIUM Eos % 4.1 0.0 - 7.0 % [facility]ER MILLENNIUM Eosinophils [...] 0.05 x10(3)/mcL [facility] MILLENNIUM Blood specimen (specimen) 07/12/2013 10:57 AM EST 07/12/2013 11:06 AM EST Albania Schmid MD HEMATOLOGY ORDERABLE S Performing Organization Address City/[facility] Co de Phone Number [facility] DANELLEENNIUM * (ABNORMAL) Protein/Creatinine Ratio, urine (07/12/2013 10:57 AM EST) Creatinine, Urine 211 mg/dL [facility]ER MILLENNIUM Protein, Urine 555(H) 0 - 12 mg/dL [facility] MILLENNIUM Protein / Creatinine Ratio, Urine 2.6 ratio [facility]ER MILLENNIUM Urine specimen (specimen) 07/12/2013 10:57 AM EST 07/12/2013 11:06 AM EST Narrative Resulting Agency Comment Spec In Lab Albania Schmid MD URINE ORDERABLES Performing Organization Address [facility] Phone Number [facility] M[facility] * Phosphorus (07/12/2013 10:57 AM EST) Phosphorus 2.8 2.5 - 4.5 mg/dL [facility]ERNER MILLENNIUM Blood specimen (specimen) 07/12/2013 10:57 AM EST 07/12/2013 11:06 AM EST Narrative Resulting Agency Comment Spec In Lab Albania Schmid MD CHEMISTRY ORDERABLES Performing Organization Address [facility] de Phone Number [facility] DANELLEENNIUM * Albumin Level (07/12/2013 10:57 AM EST) Albumin 3.8 3.2 - 5.2 gm/dL [facility]ERNER MILLENNIUM Blood specimen (specimen) 07/12/2013 10:57 AM EST 07/12/2013 11:06 AM EST Narrative Resulting Agency Comment Spec In Lab Albania Schmid MD CHEMISTRY ORDERABLES Performing Organization Address [facility] Co de Phone Number [facility] DANELLEENNIUM * (ABNORMAL) PTH (07/12/2013 10:57 AM EST) Parathyroid Hormone 73(H) 15 - 65 pg/mL [facility]ERNER MILLENNIUM Blood specimen (specimen) 07/12/2013 10:57 AM EST 07/12/2013 11:06 AM EST Narrative Resulting Agency Comment Spec In Lab Albania Schmid MD CHEMISTRY ORDERABLES [facility] * CBC (with Diff) (07/12/2013 10:57 [...] Lab Albania Schmid MD HEMATOLOGY ORDERABLE S [facility]ICT PEACOCKIUM * (ABNORMAL) Basic Metabolic Panel (non-fasting) (07/12/2013 10:57 AM EST) Glucose 157 60 - 199 mg/dL [facility] MILLENNIUM Comment:Diabetes: >=200 mg/d L plus symptoms Blood Urea Nitrogen 28(H) 10 - 20 mg/dL [facility] MILLENNIUM Creatinine 1.86(H) 0.80 - 1.50 mg/dL [facility] MILLENNIUM Comment: Please note that the pediatric reference intervals supplied above were [place] [facility] Results from pediatric patients should be interpreted [...] not stated as uncontrolled Hyperparathyroidism Hyperparathyroidism, unspecified Hypertension Unspecified essential hypertension H/O hematuria Personal history of other disorder of urinary system Proteinuria DM type 2 (diabetes mellitus, type 2) Type II or unspecified type diabetes mellitus without mention of complication, not stated as uncontrolled CKD (chronic kidney disease) stage 3, GFR 30-59 ml/min Chronic kidney disease, Stage III (moderate) Hyperparathyroidism Hyperparathyroidism, unspecified documented in this encounter Care Teams Nuclear Process Engineer Relationship Specialty Start Date End Date Albania Denis DO [address] [place] [address] PCP - General 09/03/12 03/17/22 documented as of this encounter
[2024-02-14 11:42] LABS: ALT 22 U/L (16-63); AST 15 U/L (15-37); Albumin 3.3 g/dL (3.4-5.0); Alkaline Phosphatase 74 U/L (46-116); Anion Gap 8.5 mmol/L (3-11); BUN 21 mg/dL (7-18); Bilirubin, Total 3.05 mg/dL (0.2-1.0); CO2 28.5 mmol/L (21.0-32.0); CREATININE 1.6 mg/dL (0.70-1.30); Calcium 9.3 mg/dL (8.5-10.1); Chloride 103 mmol/L (98-107); Estimated GFR 44.65 (mL/min/1.73m2); Glucose 180 mg/dL (74-106); Potassium 3.8 mmol/L (3.5-5.1); Sodium 140 mmol/L (136-145); Total Protein 7.1 g/dL (6.4-8.2)
--- NOTE | 2024-02-14 12:02 | ED.GENADUL_ITS ---
Discharge Plan Disposition Patient Disposition: Home Condition: Stable Discharge Details Clinical Impression: Lower back pain Primary Care Provider: Urbano Jimenez ED Provider: Sukumar Vega Home Meds and New Rx's Prescriptions: New methocarbamol 750 mg tablet 750 mg PO TID PRN (Reason: muscle spasm) Qty: 20 0RF lidocaine [Lidoderm] 5 % adhesive patch,medicated 1 patch topical DAILY PRN (Reason: pain) Qty: 15 0RF Rx Instructions: leave on most painful area for up to 12 hrs No Action omeprazole 20 mg capsule,delayed release(DR/EC) 20 mg PO DAILY PRN (Reason: GERD) Qty: 90 3RF saxagliptin 5 mg tablet 5 mg PO DAILY Qty: 90 3RF metformin 500 mg tablet 500 mg PO BID Qty: 180 3RF hydralazine 100 mg tablet 100 mg PO BID Qty: 180 3RF hydrocodone-acetaminophen 5-325 mg tablet 1 tab PO Q8H MDD 15 mg PRN (Reason: pain) Qty: 21 0RF nitroglycerin 0.4 mg tablet, sublingual 0.4 mg SL Q5M PRN (Reason: chest pain) Qty: 30 0RF (DME) blood sugar diagnostic Strip See Rx Instructions .ROUTE .MEDSUPPLY Qty: 180 4RF Rx Instructions: test BID (DME) lancets 28 gauge misc 1 ea Miscellaneous DAILY Qty: 100 0RF Rx Instructions: FOR ONE TOUCH ULTRA MINI METER. NO INSULIN. DIAGNOSIS CODE E11.3 mycophenolate mofetil [CellCept] 250 MG capsule 250 mg PO BID ascorbic acid (vitamin C) [Vitamin C] 500 MG capsule, extended release 500 mg PO TID Centrum Silver 0.4-300-250 mg-mcg-mcg tablet 2 tab PO DAILY aspirin [Adult Low Dose Aspirin] 81 mg tablet,delayed release (DR/EC) 81 mg PO DAILY acetaminophen 500 mg capsule 500 mg PO Q8H PRN PRN (Reason: pain) (DME) blood-glucose meter Misc 1 ea Miscellaneous DAILY Qty: 1 0RF Rx Instructions: FOR ONE TOUCH ULTRA MINI; Dx E11.9, to keep HbA1c less than 6.5% amlodipine 5 mg tablet 5 mg PO DAILY Qty: 90 3RF levothyroxine 137 mcg tablet 137 mcg PO DAILY Qty: 90 3RF calcitriol 0.25 mcg capsule 0.5 mcg PO DAILY Qty: 180 3RF atorvastatin 40 mg tablet 40 mg PO QHS Qty: 90 3RF tamsulosin 0.4 mg capsule 0.4 mg PO DAILY Qty: 90 3RF tacrolimus [Prograf] 1 mg capsule 1 mg PO BID glipizide 10 mg tablet extended release 24hr 10 mg PO BID Qty: 180 3RF metoprolol succinate 50 mg tablet extended release 24 hr 75 mg PO BID Patient Comments: TAKE 1&1/2 TABLETS BY MOUTH TWO TIMES A DAY Discharge Instructions Additional Instructions: * Please try medications as prescribed to help with your back pain. Right now there is no other clear diagnosis than some muscular discomfort. Please follow-up with your PCP for further evaluation of ongoing symptoms. HPI General Date/Time Provider Initiated Documentation: 02/14/24 11:03 . Limitations to Documentation: no limitations . Information obtained by: patient . HPI Narrative: 73-year-old gentleman with past medical history of renal transplant, hypertension, NSTEMI presents for evaluation of left flank pain. He reports that he has been having this left-sided lower back pain for approximately 2 months. He states that it hurts him all of the time. He reports that he did have some worsening of the pain today which prompted him to come in. He denies any radiation of the pain, is always localized in the same spot. Not associated with any change in urine output. Change in urine color, hematuria. He has not had any fever. He has never had any issues with concerning for rejection of his transplanted kidney. He reports last evaluation by renal team in November. He denies any trauma that may have caused his back pain. He denies any weakness in his legs, pain is relieved with laying down, worse with movement and palpation of the area. Related Data Home Medications ?Medication ?Instructions ?Recorded ?Confirmed mycophenolate mofetil 250 mg 250 mg PO BID 04/15/16 01/21/24 capsule (CellCept) ascorbic acid (vitamin C) 500 mg 500 mg PO TID 09/05/16 01/21/24 capsule,extended release (Vitamin C) omeprazole 20 mg capsule,delayed 20 mg PO DAILY PRN GERD #90 caps 06/17/19 01/21/24 release [id number]-mvzsp acid 0.4 2 tab PO DAILY 07/14/21 07/18/24 mg-lycopene 300 mcg-lutein 250 mcg tablet (Centrum Silver) acetaminophen 500 mg capsule 500 mg PO Q8H PRN PRN pain 07/17/22 01/21/24 aspirin 81 mg tablet,delayed 81 mg PO DAILY 07/17/22 01/21/24 release (Adult Low Dose Aspirin) blood-glucose meter #1 ea 10/06/22 01/21/24 nitroglycerin 0.4 mg sublingual 0.4 mg sublingual Q5M PRN chest 12/22/22 01/21/24 tablet pain #30 tabs amlodipine 5 mg tablet 5 mg PO DAILY #90 tabs 04/16/23 01/21/24 levothyroxine 137 mcg tablet 137 mcg PO DAILY #90 tab-caps 05/01/23 01/21/24 atorvastatin 40 mg tablet 40 mg PO QHS #90 tabs 05/26/23 01/21/24 calcitriol 0.25 mcg capsule 0.5 mcg (2 x 0.25 mcg) PO DAILY 05/26/23 01/21/24 #180 caps tamsulosin 0.4 mg capsule 0.4 mg PO DAILY #90 tab-caps 05/26/23 01/21/24 saxagliptin 5 mg tablet 5 mg PO DAILY #90 tabs 06/25/23 01/21/24 tacrolimus 1 mg capsule, 1 mg PO BID 06/25/23 01/21/24 immediate-release (Prograf) metoprolol succinate 50 mg 75 mg PO BID 09/24/23 01/21/24 tablet,extended release 24 hr blood sugar diagnostic #180 ea 09/28/23 01/21/24 lancets 28 gauge #100 ea 09/28/23 01/21/24 hydralazine 100 mg tablet 100 mg PO BID #180 tabs 10/12/23 01/21/24 metformin 500 mg tablet 500 mg PO BID #180 tabs 10/12/23 01/21/24 hydrocodone 5 mg-acetaminophen 325 1 tab PO Q8H PRN pain #21 tabs 11/10/23 01/21/24 mg tablet glipizide 10 mg tablet, extended 10 mg PO BID #180 tabs 12/03/23 01/21/24 release 24 hr lidocaine 5 % topical patch 1 patch topical DAILY PRN pain #15 02/14/24 (Lidoderm) ea methocarbamol 750 mg tablet 750 mg PO TID PRN muscle spasm #20 02/14/24 tabs Previous Rx's ?Medication ?Instructions ?Recorded omeprazole 20 mg capsule,delayed 20 mg PO DAILY PRN GERD #90 caps 06/17/19 release blood-glucose meter #1 ea 10/06/22 nitroglycerin 0.4 mg sublingual 0.4 mg sublingual Q5M PRN chest 12/22/22 tablet pain #30 tabs amlodipine 5 mg tablet 5 mg PO DAILY #90 tabs 04/16/23 levothyroxine 137 mcg tablet 137 mcg PO DAILY #90 tab-caps 05/01/23 atorvastatin 40 mg tablet 40 mg PO QHS #90 tabs 05/26/23 calcitriol 0.25 mcg capsule 0.5 mcg (2 x 0.25 mcg) PO DAILY 05/26/23 #180 caps tamsulosin 0.4 mg capsule 0.4 mg PO DAILY #90 tab-caps 05/26/23 saxagliptin 5 mg tablet 5 mg PO DAILY #90 tabs 06/25/23 blood sugar diagnostic #180 ea 09/28/23 lancets 28 gauge #100 ea 09/28/23 hydralazine 100 mg tablet 100 mg PO BID #180 tabs 10/12/23 metformin 500 mg tablet 500 mg PO BID #180 tabs 10/12/23 hydrocodone 5 mg-acetaminophen 325 1 tab PO Q8H PRN pain #21 tabs 11/10/23 mg tablet glipizide 10 mg tablet, extended 10 mg PO BID #180 tabs 12/03/23 release 24 hr lidocaine 5 % topical patch 1 patch topical DAILY PRN pain #15 02/14/24 (Lidoderm) ea methocarbamol 750 mg tablet 750 mg PO TID PRN muscle spasm #20 02/14/24 tabs Allergies Allergy/AdvReac Type Severity Reaction Status Date / Time strawberry Allergy Unknown Other (See Verified 01/21/24 11:19 Comment) IV contrast AdvReac Severe Other (See Uncoded 01/21/24 11:19 Comment) General Stated Complaint: Nk/Back Pain ALICIA: 4 Exam Narrative Exam Narrative: Review of Systems: All systems reviewed & are unremarkable except as noted in HPI and below Well-developed, no acute distress NCAT PERRL, some appreciable jaundice RRR Unlabored respiratory effort Nondistended abdomen soft nontender, transplanted organ is palpable Extremities w/o deformity, no cyanosis, no edema AV fistula in left upper extremity with palpable thrill No midline back tenderness, step-off or deformity, no CVA tenderness he isolates his back pain to the left lumbar paraspinal area, good strength bilaterally and normal gait noted No rashes or lesions. no focal neurologic deficits Appropriate mood and affect Course Vital Signs Vital signs: Vital Signs Temperature 37.0 C 02/14/24 10:56 Pulse 62 02/14/24 10:56 Respiratory Rate 16 02/14/24 10:56 Blood Pressure 146/58 H 02/14/24 10:56 Temperature 37.0 C 02/14/24 10:56 Temperature Source Temporal Artery Scan 02/14/24 10:56 Pulse 62 02/14/24 10:56 Respiratory Rate 16 02/14/24 10:56 Blood Pressure 146/58 H 02/14/24 10:56 Blood Pressure Position Sitting 02/14/24 10:56 Oxygen Delivery Method Room Air 02/14/24 10:56 Oxygen Flow Rate 0 02/14/24 10:56 Pain Level 5 02/14/24 10:56 Lab/Test Results Lab/Test Results: Laboratory Tests Range/Units 02/14/24 11:12 WBC (4.4-10.8) 10^3/uL 11.35 H RBC (4.36-5.78) 10^6/uL 4.63 Hgb (13.5-17.5) g/dL 14.0 Hct (40.0-50.0) % 42.4 MCV (80-95) fL 92 MCH (27.0-33.0) pg 30.2 MCHC (32.0-36.0) % 33.0 RDW (11.8-14.1) % 13.3 Plt Count (130-400) 10^3/uL 228 MPV (8.0-11.0) fL 9.6 Immature Gran % % 0.4 Neutrophils % % 78.1 Lymphocytes % % 10.8 Monocytes % % 8.5 Eosinophils % % 1.8 Basophils % % 0.4 Nucleated RBC % (0.0-0.3) % 0.0 Absolute Neutrophils (1.2-6.7) 10^3/uL 8.86 H Absolute Lymphocytes (1.2-3.4) 10^3/uL 1.23 Absolute Monocytes (0.1-0.8) 10^3/uL 0.96 H Absolute Eosinophils (0.0-0.7) 10^3/uL 0.20 Absolute Basophils (0.0-0.2) 10^3/uL 0.05 Sodium (136-145) mmol/L 140 Potassium (3.5-5.1) mmol/L 3.8 Chloride (98-107) mmol/L 103 Carbon Dioxide (21.0-32.0) mmol/L 28.5 Anion Gap (3-11) mmol/L 8.5 BUN (7-18) mg/dL 21 H Creatinine (0.70-1.30) mg/dL 1.6 H Est GFR (CKD-EPI 2020) (mL/min/1.73m2) 44.65 Glucose (74-106) mg/dL 180 H Calcium (8.5-10.1) mg/dL 9.3 Total Bilirubin (0.2-1.0) mg/dL 3.05 H AST (15-37) U/L 15 ALT (16-63) U/L 22 Alkaline Phosphatase (46-116) U/L 74 Total Protein (6.4-8.2) g/dL 7.1 Albumin (3.4-5.0) g/dL 3.3 L Medical Decision Making Emergent evaluation of left lower back pain. Initial differential includes muscle spasm, aneurysm, urinary tract infection less likely, unlikely renal stone with chronic nature of the symptoms. I reviewed the patient's medical record and noted prior evaluation for similar symptoms. At that time the patient did have sigmoid diverticulitis. Imaging revealed some disc base changes at L5-S1. The patient does not have any signs or symptoms concerning for infectious etiology and of a low suspicion for transplant rejection given the chronicity of the presentation. Plan for lab work and CT imaging of the area. 1200 Lab work reviewed. Mild leukocytosis at 11. His renal function is 1.6 which appears to be his baseline. His bilirubin is elevated at 3 which again appears to be consistent with prior elevation. Patient has not provided a urine sample yet and disposition pending CT imaging. 1300 CT imaging reviewed and is unremarkable. Solitary gallstone noted and this has been present on prior CTs for over 1 year. He does not have right upper quadrant pain so I do not believe that he has an obstructive etiology causing his elevated bilirubin or an acute infectious etiology. Kidneys appear unremarkable no signs of stone or bowel perforation or diverticulitis. Recommend close reevaluation with PCP. Will prescribe Robaxin and Lidoderm patches for treatment and return precautions were advised. Quality:[facility] Health Related Social Needs: No Data to Display PFSH All Active Problems Lower back pain (Acute) Pigmented skin lesion (Acute) Gout (Chronic) KIDNEY TRANSPLANT (Acute 09/16/15) [facility]-09/16/15 Acute diverticulitis (Acute) Physical deconditioning (Acute) Gait difficulty (Acute) Meibomian gland dysfunction (MGD) of upper and lower eyelid of left eye (Acute ~08/2022) Meibomian gland dysfunction (MGD) of upper and lower eyelid of right eye (Acute ~08/2022) [place] (degenerative) of macula, bilateral (Acute) [place] note 08/15/22 Age-related nuclear cataract, bilateral (Acute) [place] note 08/15/22 Dry mouth (Acute) Periodic limb movement disorder (Acute) Central sleep apnea (Acute) 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, tx at [facility], anticoagulant stopped Altered mental status (Acute) Hypertensive retinopathy (Acute ~09/27/20) [place] 09/27/20- MILD TO MODERATE-KB Spinal stenosis (Acute) L5-S1 Subsequent non-ST elevation (NSTEMI) myocardial infarction within 4 weeks of initial infarction (Acute) stents Status post rotator cuff repair (Acute) Postoperative stiffness of total knee replacement (Chronic) Olecranon bursitis, left elbow (Chronic) Arthritis of left elbow (Acute) Tubular adenoma (Acute 09/12/15) 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 Microscopic hematuria (Acute 05/21/12) neg workup [facility] [place]. Kidney transplant recipient (Chronic 09/16/15) [facility]; without recipient nephrectomy ureteral stenosis with multiple surgeries Inguinal hernia, unilateral (Acute) left Hypothyroidism (Acute 04/06/15) Hypertension (Acute) GERD (gastroesophageal reflux disease) (Acute) Elevated BUN (Acute) Diverticula of colon (Acute 09/12/15) Colon polyp (Acute 06/04/03) Repeat colonoscopy-no polyps; diverticulosis Cardiomyopathy due to hypertension (Acute 11/29/14) EF 40% 09/17 CKD (chronic kidney disease) stage 3, GFR 30-59 ml/min (Acute 04/25/14) 10/18 Stage 4.. Need dialysis or transplant. 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 s/p hernia repair b. s/p knee arthroscopy c. s/p unspecified shoulder surgery d. s/p vasectomy Medical History History of diverticulitis (09/14/22) Fistula Obstructive sleep apnea Myocardial infarction Hepatitis C Treated and cured Chronic kidney disease Hypothyroidism CVA (cerebral vascular accident) CHF (congestive heart failure) Diabetes HTN (hypertension) Hyperlipemia GERD (gastroesophageal reflux disease) BPH (benign prostatic hyperplasia) Atrial fibrillation Surgical History History of arthroscopy of knee History of biopsy H/O bladder repair surgery History of hernia repair H/O vasectomy Rotator Cuff Repair left [place] - [facility] [place] BIOPSY, KIDNEY (10/16/14) [facility]-RIGHT Arthroplasty of knee 2006-right Family History Mother Essential hypertension Father Myocardial infarction Stroke Brother Essential hypertension Neoplasm Social History Smoking/Tobacco Use Status: Current-Occasional Tobacco Type: cigars Tobacco: How many years used: 20 Smoking risk assessment performed?: Yes Alcohol Intake: never Drug use: Occasionally Substance use type: marijuana Adopted: No Caregiver/Support person: Yes Foster care: No Household members: spouse Housing: house Number of Children: 2 number of grandchildren: 1 Communication Needs: None Education Level: high school 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 Pets and animals: Yes Pets and animals: dog(s) Sexually active: No Do you think of yourself as: straight/heterosexual Current gender identity: male What is your relationship status?: How often do you talk on the phone with friends or family?: three or more times per week Do you belong to any clubs or organized social groups?: no Panel score (0-1 are the most socially isolated patients): 2 Idalia/Orthodoxy: None Special idalia needs: No Seatbelt use: always Helmet use: Yes Helmet use: always 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
--- NOTE | 2024-02-14 12:10 | DI.CT_ITS ---
Exam(s) CT ABDOMEN PELVIS WO EXAM: CT ABDOMEN PELVIS WO CLINICAL HISTORY: FLANK PAIN. TECHNIQUE: Imaging Protocol: Axial computed tomography images with coronal and sagittal reformatted images were created and reviewed CONTRAST MATERIAL: Intravenous: none Oral: None COMPARISON: CT CT ABDOMEN PELVIS WO from 06/12/[address] ABDOMEN PELVIS WO from 09/12/[address] LUMBAR SPINE RECONS from 11/13/[address] ABDOMEN PELVIS WO from 11/13/2023 FINDINGS: VISUALIZED LUNG BASES: There is a very small right pleural effusion now evident. Mild thickening of the anterior pericardial wall is again noted consistent with space unchanged small pericardial effusi on. There is no pericardial fluid over the cardiac apex. Heart size is upper normal. Pacemaker wir es are again noted in the right atrium and right ventricle, unchanged. ABDOMEN: There is no ascites. LIVER: There are no obvious focal hepatic lesions evident of this noninfused study. GALLBLADDER/BILIARY: Again noted is a solitary calcified gallstone measuring 8 mm on the dependent wa ll the gallbladder, unchanged position not associated with gallbladder wall edema. CBD is not dilate d. No calculi evident in the CBD. PANCREAS: No evidence of pancreatic mass nor dilatation of the pancreatic duct. SPLEEN: Spleen is not enlarged. No obvious intrasplenic lesions. Splenic artery is calcified withou t aneurysms. ADRENALS: There are no significant adrenal masses. KIDNEYS:Both kidneys are again noted be atrophic. Unchanged hydronephrosis and hydroureter of the le ft kidney is again noted down to the level of 3 adjacent surgical clips which are medial to the trans plant kidney in the left pelvis. Left ureter below this level is collapsed. There are no solid mass es evident in the bilateral atrophic [place] kidneys. A 4.6 x 3.6 cm exophytic cyst off the inferior pole of the [place] left kidney is again evident. Also noted is a small calculus is seen in the lower pole calyx of the left [place] kidney.. There is a left iliac fossa transplant kidney again noted which appears unremarkable without evidence of calculi nor hydronephrosis nor masses. ABDOMINAL AORTA: Abdominal aorta is not enlarged. LYMPH NODES: There is no retroperitoneal nor paraaortic adenopathy. ABDOMINAL WALL: No new significant findings. No new hernias nor abnormal fluid collections. GI: There is no evidence of bowel obstruction, free air, nor abscess. PELVIS: LYMPH NODES: There is no intrapelvic nor inguinal adenopathy. GI: No evidence of appendicitis.Sigmoid diverticuli again noted but no obvious acute diverticulitis, as was evident on 11/13/2023. No free air. No abscess. No free fluid in the pelvis. URINARY BLADDER: Stable appearance. Postsurgical changes related to the left pelvic transplant kidne y/bladder relation again noted, unchanged. No new significant urinary bladder findings. REPRODUCTIVE: Prostate size upper normal. Seminal vesicles unremarkable. No obturator adenopathy. OSSEOUS: No significant osseous lesions. No fractures. Multilevel degenerative disc disease, advanced disc space narrowing at L5-S1 level. N o listhesis. IMPRESSION: 1. Compared to the prior CT scan of 11/13/2023 there is again noted sigmoid diverticulosis but there has been improvement in the previously present diverticulitis. There is a presently no obvious evide nce of acute diverticulitis and there is no evidence of acute appendicitis. 2. Left renal pelvis transplant kidney appears unremarkable on this non few study. 3. Atrophic [place] kidneys again noted and there is again noted unchanged hydronephrosis and hydroure ter of the [place] left kidney which appears to be related to 3 adjacent surgical clips which are medi al to the transplant kidney. Unchanged from previous CT scans dating back at least to June 2018. . 4. Cholelithiasis again noted. No evidence of acute cholecystitis nor significant dilatation of the biliary tree. RADIATION DOSE DELIVERED: Total DLP DATA REPOSITORY: All CT scans at this facility are submitted to the National Radiology Data Registry (NRDR) Dose Index Registry (DIR) with the [employer] (ACR). RADIATION OPTIMIZATION: All CT scans at this facility use at least one of these dose optimization te chniques: automated exposure control; mA and/or kV adjustment per patient size (includes targeted exa ms where dose is matched to clinical indication); or iterative reconstruction.
[2024-02-14] MEDS: Methocarbamol 500 MG TAB 1000 MG PO (12:16)
[2024-02-14 12:41] LABS: Bilirubin Negative (Negative); Blood Negative (Negative); Clarity Clear (Clear); Glucose Negative (Negative); Ketones Negative (Negative); Leukocyte Esterase Negative (Negative); Nitrite Negative (Negative); Urobilinogen 0.2 mg/dL (Up to 0.2)
--- NOTE | 2024-02-14 12:47 | DI.VRAD_ITS ---
PROCEDURE INFORMATION: Exam: CT Abdomen And Pelvis Without Contrast Exam date and time: 02/14/2024 12:03 PM Age: 73 years old Clinical indication: Abdominal pain TECHNIQUE: Imaging protocol: Computed tomography of the abdomen and pelvis without contrast. COMPARISON: CT ABDOMEN PELVIS WO 11/13/2023 3:29 PM FINDINGS: Liver: Normal. No mass. Gallbladder and biliary ducts: There is a gallstone in the gallbladder. Pancreas: Normal. No ductal dilation. Spleen: Normal. No splenomegaly. Adrenal glands: Normal. No mass. Kidneys and ureters: The [place] kidneys are small/atrophied. There are surgical clips left mid ureter. There is moderate left hydroureteronephrosis. There is a transplant kidney in the left iliac fossa. No stones or hydronephrosis in the transplant kidney. Stomach and bowel: There are sigmoid/descending colonic diverticuli. No bowel wall thickening. No obstruction. Appendix: No evidence of appendicitis. Intraperitoneal space: Unremarkable. No free air. No significant fluid collection. Vasculature: Unremarkable. No abdominal aortic aneurysm. Lymph nodes: There is a 1.0 cm short axis left external iliac chain node on series 7, image 119. Urinary bladder: Unremarkable as visualized. Reproductive: Unremarkable as visualized. Bones/joints: Unremarkable. No acute fracture. Soft tissues: Unremarkable. IMPRESSION: 1. Gallstone in the gallbladder. 3. Sigmoid/descending colonic diverticulosis. Dictated and Authenticated by: Shahnaz Foss MD. Ordering:MOE Burch MD
[2024-02-14 12:49] LABS: Bacteria Negative HPF (Negative); C & S Indicated? No; Casts Negative LPF (Negative); Crystals Rare Calcium Oxalate HPF (Negative); Epithelial Cells Rare HPF (Negative); Mucus Trace (Negative); RBC 0-2 HPF (0-2); WBC 0-2 HPF (0-5)
[2024-02-14] MEDS: Lidocaine 5% Patch 1 PATCH TP (13:19)
[2024-02-16 11:42] LABS: Tacrolimus 9.4 ng/mL (See Note)
== END 2024-02-14 13:01 | disposition home or self-care (01) ==
PROVIDERS: Emergency Provider Emergency Medicine; PCP Family Medicine
DX: M54.50 Low back pain, unspecified (principal); I11.0 Hypertensive heart disease with heart failure; I50.9 Heart failure, unspecified; I25.2 Old myocardial infarction; I48.91 Unspecified atrial fibrillation; E11.21 Type 2 diabetes mellitus with diabetic nephropathy; E78.5 Hyperlipidemia, unspecified; Z86.73 Personal history of transient ischemic attack (TIA), and cerebral infarction without residual deficits; Z79.84 Long term (current) use of oral hypoglycemic drugs; Z79.82 Long term (current) use of aspirin; F17.290 Nicotine dependence, other tobacco product, uncomplicated; Z94.0 Kidney transplant status
CPT/HCPCS: 80053; 99284; 74176; 80197; 81003; 81015; 85025

== ENCOUNTER → 2024-02-22 12:52 | Outpatient (BNVA) | payer MEDICARE, SELFPAY | PROVIDERS: PCP Family Medicine; Referring Provider Family Medicine; Visit Provider Surgery | DX: L81.9 Disorder of pigmentation, unspecified (principal); L98.8 Other specified disorders of the skin and subcutaneous tissue | CPT/HCPCS: 99214 ==

== ENCOUNTER 2024-03-23 03:04 | Outpatient (CLI) | payer MEDICARE, SELFPAY ==
[2024-03-23 13:04] LABS: Abs Immature Grans 0.02 10^3/uL (0.0-0.06); Absolute Basophil Count 0.06 10^3/uL (0.0-0.2); Absolute Eosinophil Count 0.31 10^3/uL (0.0-0.7); Absolute Lymphocyte Count 1.38 10^3/uL (1.2-3.4); Absolute Monocyte Count 0.63 10^3/uL (0.1-0.8); Absolute Neutrophil Count 5.34 10^3/uL (1.2-6.7); Basophils % 0.8 %; HCT 40.9 % (40.0-50.0); HGB 13.6 g/dL (13.5-17.5); Immature Grans % 0.3 %; Lymphocytes % 17.8 %; MCHC 33.3 % (32.0-36.0); MCV 90 fL (80-95); MPV 9.3 fL (8.0-11.0); Monocytes % 8.1 %; Platelet Count 217 10^3/uL (130-400); RBC 4.54 10^6/uL (4.36-5.78); RDW 13.2 % (11.8-14.1); RDW-SD 43.8 fL; WBC 7.74 10^3/uL (4.4-10.8)
[2024-03-23 13:07] LABS: Bilirubin Negative (Negative); Blood Negative (Negative); Clarity Clear (Clear); Glucose Negative (Negative); Ketones Negative (Negative); Leukocyte Esterase Negative (Negative); Nitrite Negative (Negative); Urobilinogen 0.2 mg/dL (Up to 0.2)
[2024-03-23 13:18] LABS: Bacteria Rare HPF (Negative); C & S Indicated? No; Casts Negative LPF (Negative); Crystals Negative HPF (Negative); Epithelial Cells Rare HPF (Negative); Mucus Negative (Negative); Other Cells Negative (Negative); RBC Negative HPF (0-2); WBC Negative HPF (0-5)
[2024-03-23 13:27] LABS: PROTEIN 33.3 mg/dL; Prot/Crea Ur Ratio 0.16
[2024-03-23 13:33] LABS: ALT 19 U/L (16-63); AST 14 U/L (15-37); Albumin 3.2 g/dL (3.4-5.0); Alkaline Phosphatase 75 U/L (46-116); Anion Gap 8.9 mmol/L (3-11); BUN 22 mg/dL (7-18); Bilirubin, Total 3.25 mg/dL (0.2-1.0); CO2 26.1 mmol/L (21.0-32.0); CREATININE 1.6 mg/dL (0.70-1.30); Calcium 9.7 mg/dL (8.5-10.1); Chloride 105 mmol/L (98-107); Estimated GFR 44.65 (mL/min/1.73m2); Glucose 180 mg/dL (74-106); Magnesium 1.5 mg/dL (1.8-2.4); PHOSPHORUS 3.1 mg/dL (2.6-4.7); Potassium 3.5 mmol/L (3.5-5.1); Sodium 140 mmol/L (136-145); Total Protein 7.1 g/dL (6.4-8.2); Uric Acid 6.9 mg/dL (3.5-7.2)
[2024-03-23 13:58] LABS: Cholesterol 67 mg/dL (<200)
== END 2024-03-23 03:05 | disposition home or self-care (01) ==
LOC: LBO 03:04
PROVIDERS: PCP Family Medicine; Visit Provider Internal Medicine Nephrology
DX: Z94.0 Kidney transplant status (principal); Z94.83 Pancreas transplant status; Z79.899 Other long term (current) drug therapy; Z29.81 Encounter for HIV pre-exposure prophylaxis
CPT/HCPCS: 36415; 80053; 93280; 80197; 81003; 81015; 82465; 82565; 83735; 84100; 84156; 84550; 85025

== ENCOUNTER 2024-04-04 13:15 | Outpatient (REF) | payer MEDICARE, SELFPAY ==
--- OUTSIDE RECORDS SUMMARY | 2024-04-04 13:49 | XMS_ITS | Encounter Summary ---
Author Name [facility] [place] Organization [facility] [place] Address [address] [place] [id number] Care Team Providers Care Circular Shear Operator Name Role Phone CHARLEEN GONZALES Primary [...] PART A Aug 06, 2013 PART A [id number] ETHEL AKINS SR PATIENT MEDICARE (WNR) MEDICARE (M) PART B Aug 06, 2013 PART B [id number] ETHEL AKINS PATIENT Selected Encounter This section includes the information on record at [place] for the Encounter. Date/Time Encounter Type Encounter [...] PRIMARY Sensorineural hearing loss, bilateral LINDSEY,JENNA R [facility] Social History: Smoking Status (Most current) and Tobacco Use (All prior to encounter date) This section includes the most current, and the historical, smoking and tobacco- related health factors from the [place] facility where the Encounter took place. Current Smoking Status This section includes the most current smoking, or tobacco-related health factor, from the [place] facility where the Encounter took place. Date/Time Current Smoking Status Comment Facil ity Sep 03, 2022 11:00 AM VA-TOBACCO USE > 1 5 LESS THAN 30 YEARS [facility] Tobacco Use History This section includes a history of the smoking, or tobacco-related health factors, that were collected on or before the date of the Encounter. The data comes from the [place] facility where the Encounter took place. 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 RECOMMENDATIONS: [place] is a candidate for binaural amplification. The [...] -f/u per request PROCEDURES COMPLETED: Otoscopy Tympanometry 19686 Acoustic Reflex Comprehensive Exam 98521 Air Conduction Threshold Testing Bone Conduction Threshold Testing Speech Seconds Handler Threshold Testing Word Recognition Testing Hearing Aid Assessment Binaural 72073 --STATUS-- --DUE DATE-- --LAST DONE-- Suicide Screen RESOLVED 10/09/2023 10/08/2022 Frequency: Due every 1 year for all ages. Resolution: Last done - 10/08/2022@10:00 Mental Health Test: [place] Suicide Severity Rating Scale (C-SSRS) 10/08/2022@10:00 scale: Ques1 - raw score: 2, transformed score: /es/ JENNA PORTILLO Quality Improvement Consultant Signed: 07/30/2023 13:42 JENNA PORTILLO [facility]
--- OUTSIDE RECORDS SUMMARY | 2024-04-04 13:49 | XMS_ITS | Encounter Summary ---
Author Name [facility] Organization [facility] [place] Address [address] [place] [id number] Care Team Providers Care Salt Manager Name Role Phone CHARLEEN GONZALES Primary Care [...] PART A Aug 06, 2013 PART A [id number] ETHEL AKINS SR PATIENT MEDICARE (WNR) MEDICARE (M) PART B Aug 06, 2013 PART B [id number] ETHEL AKINS PATIENT Selected Encounter This section includes the information on record at [place] for the Encounter. Date/Time Encounter Type Encounter [...] Acknowledged By: 09/15/2023 16:44 /melvin/ JENNA PORTILLO [place] Operator 01/06/2024 ADDENDUM STATUS: COMPLETED [place] warranty period closing- sending back to [facility] for credit /melvin/ JENNA PORTILLO [place] Operator Signed: 01/06/2024 16:[address] [facility]
--- OUTSIDE RECORDS SUMMARY | 2024-04-04 13:49 | XMS_ITS | Continuity of Care Document ---
Author Name [facility] Organization [facility] Care Team Providers Care Director Maternal Child Name Role Phone [facility] Unavailable Unavailable Problems Combined list of problems from Department of Defense and Veterans Affairs facilities. It does not include entries that were removed or entered in error. Problem Status Onset Date Problem Type Date of Resolution Comments Source CAD - Coronary Artery Disease ([facility] 85021903) Active Condition Oct 13, 2022 Entered By: CHARLEEN GONZALES Comment: Hx MIApr 2022 Entered By: CHARLEEN GONZALES Comment: PacemakerApr 2022 Entered By: CHARLEEN GONZALES Comment: Watchman [facility] Diabetes Mellitus Type 2 ([facility] 76973306) Active Condition [facility] Exposure to potentially hazardous substance Active Condition Oct 13, 2022 Entered By: CHARLEEN GONZALES Comment: Agent orange [facility] History of cerebrovascular accident Active Condition [facility] History of hepatitis C Active Condition Oct 13, 2022 Entered By: CHARLEEN GONZALES Comment: Treated and cured [facility] History of renal transplant Active Condition Oct 13, 2022 Entered By: CHARLEEN GONZALES Comment: given Hep C + kidney [facility] HTN - Hypertension ([facility] 30782376) [facility] Hyperlipidemia ([facility] 51249664) Active Condition [facility] Hypothyroidism ([facility] 57535952) [place] Condition [facility] 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 Active Condition Oct 13, 2022 Entered By: CHARLEEN GONZALES Comment: x 2 [facility] Diagnosis: ICD-10-CM H90.3 Sensorineural hearing loss, bilateral Active Diagnosis [facility] Diagnosis: ICD-10-CM Z94.0 Kidney transplant status Active Diagnosis [facility] Diagnosis: ICD-10-CM 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 [facility] Diagnosis: ICD-10-CM Z13.89 Encounter for screening for other disorder Active Diagnosis [facility] Diagnosis: ICD-10-CM Z77.29 Contact with and exposure to other hazardous substances Active Diagnosis [facility] Medications Combined list of outpatient medications [...] by: GARRICK GONZALES EN Document ed at: [facility] ORAL ACTIVE VALDO GONZALES 2022 [facility] ASCORBIC ACID 500MG TAB ASCORBIC ACID 500MG TAB Non-VA TAKE ONE TABLET BY MOUTH ONCE DAILY Oct 13, 2022 [facility] Document ed by: GARRICK GONZALES EN Document ed at: [facility] ORAL ACTIVE VALDO GONZALES 2022 [facility] ASPIRIN 81MG TAB,EC ASPIRIN 81MG TAB,EC Non-VA TAKE ONE TABLET BY MOUTH ONCE DAILY Oct 13, 2022 Non-VA Document ed by: GARRICK GONZALES EN Document ed at: [facility] ORAL ACTIVE VALDO GONZAELS 2022 [facility] ATORVASTATI N CA 40MG TAB ATORVAST ATIN CA 40MG TAB Non-VA TAKE ONE TABLET BY MOUTH ONCE DAILY Oct 13, 2022 Non-VA Document ed by: GARRICK GONZALES EN Document ed at: [facility] ORAL ACTIVE VALDO GONZALES 2022 [facility] CALCITRIOL 0.5MCG CAP CALCITRI OL 0.5MCG CAP Non-VA TAKE 1 CAPSULE BY MOUTH ONCE DAILY Oct 13, 2022 Non-VA Document ed by: GARRICK GONZALES EN [facility] 2022 [facility] GLIPIZIDE 10MG TAB GLIPIZID E 10MG TAB Non-VA TAKE ONE TABLET BY MOUTH TWICE A DAY Oct 13, 2022 Non-VA Document ed by: GARRICK GONZALES EN Document ed at: [facility] ORAL ACTIVE VALDO GONZALES 2022 [facility] HYDRALAZINE HCL 100MG TAB HYDRALAZ INE HCL 100MG TAB Non-VA TAKE ONE TABLET BY MOUTH TWICE A DAY Oct 13, 2022 Non-VA Document ed by: GARRICK GONZALES EN Document ed at: [facility] OC ORAL ACTIVE VALDO GONZALES 2022 [facility] LEVOTHYROXI NE NA 137MCG TAB (SYNTHROID) LEVOTHYR OXINE NA 137MCG TAB (SYNTHRO ID) Non-VA TAKE ONE TABLET BY MOUTH EVERY MORNING Oct 13, 2022 Non-VA Document ed by: GARRICK GONZALES EN Document ed at: [facility] OC ORAL ACTIVE VALDO GONZALES 2022 [facility] MAGNESIUM GLUCONATE 500MG TAB MAGNESIU M GLUCONAT E 500MG TAB Non-VA TAKE TWO TABLETS BY MOUTH EVERY MORNING WITH BREAKFAS T Oct 13, 2022 Non-VA Document ed by: GARRICK GONZALES EN Document ed at: [facility] ORAL ACTIVE VALDO GONZALES 2022 [facility] METOPROLOL SUCCINATE 50MG TAB,SA METOPROL OL SUCCINAT E 50MG TAB,SA Non-VA TAKE ONE TABLET BY MOUTH TWICE A DAY Oct 13, 2022 Non-VA Document ed by: GARRICK GONZALES EN Document ed at: [facility] ORAL ACTIVE VALDO GONZALES 2022 [facility] MULTIVITAMI NS W/MINERALS CAP/TAB MULTIVIT AMINS W/MINERA LS CAP/TAB Non-VA TAKE ONE CAP/TAB BY MOUTH ONCE DAILY Oct 13, 2022 Non-VA Document ed by: GARRICK GONZALES EN Document ed at: [facility] ORAL ACTIVE VALDO GONZALES 2022 [facility] MYCOPHENOLA TE MOFETIL (CELLCEPT) 250MG CAP MYCOPHEN OLATE MOFETIL (CELLCEP T) 250MG CAP Non-VA TAKE 1 CAPSULE BY MOUTH TWICE A DAY Oct 13, 2022 Non-VA Document ed by: GARRICK GONZALES EN Document ed at: [facility] ORAL ACTIVE VALDO GONZALES 2022 [facility] TACROLIMUS (PROGRAF) 1MG CAP TACROLIM US (PROGRAF ) 1MG CAP Non-VA TAKE 1 CAPSULE BY MOUTH EVERY MORNING AND TAKE 2 CAPSULES BY MOUTH EVERY EVENING kidney transpla nt Oct 13, 2022 Non-VA Document ed by: GARRICK GONZALES EN Document ed at: [facility] ORAL ACTIVE VALDO GONZALES N 2022 [facility] TAMSULOSIN HCL 0.4MG CAP TAMSULOS IN HCL 0.4MG CAP Non-VA TAKE 1 CAPSULE BY MOUTH ONCE DAILY Oct 13, 2022 Non-VA Document ed by: GARRICK GONZALES EN Document ed at: [facility] ORAL ACTIVE VALDO GONZALES N 2022 [facility] Allergies, Adverse Reactions, Alerts Combined list of allergies from Department of Defense and Veterans Affairs facilities. It does not include entries that were removed or entered in error. Substance Category Reaction Severity Reaction type Status Date Reported Comments Source MONA Propensity to adverse reactions to substance (finding) active 3 [facility] Immunizations Combined list of available immunizations from the Department of Defense and Veterans Affairs facilities. Immunization Series Date Given Administered By Site Reaction Lot Number CVX Code Drug Biomed Tech Status Comments Source COVID-19 (PFIZER), MRNA, LNP-S, PF, 30 MCG/0.3 ML DOSE 2021 208 complet [facility] INFLUENZA, UNSPECIFIED FORMULATION 2021 88 complet [facility] COVID-19 (MODERNA), MRNA, LNP-S, PF, 100 MCG/0.5ML DOSE OR 50 MCG/0.25ML DOSE 3 2020 207 complet [facility] COVID-19 (MODERNA), MRNA, LNP-S, PF, 100 MCG/0.5ML DOSE OR 50 MCG/0.25ML DOSE 2 2020 207 complet [facility] COVID-19 (MODERNA), MRNA, LNP-S, PF, 100 MCG/0.5ML [...] Specimen Type: PLASMA Comment: Tests performed on [employer] (405) [id number] Ordering Provider: CHARLEEN GONZALES Report Released Date/Time: Sep 03, 2022 12:59 PM Reporting Lab: [facility] [address] [facility] [address] Performing Lab: [facility] [address] [facility] [address] [facility] URINALYSIS W/REFLEX TO CULTURE COLOR OF URINE Yellow 10/01 Specimen Type: URINE No comment entered. Ordering Provider: CHARLEEN GONZALES Report Released Date/Time: Sep 03, 2022 12:59 PM Reporting Lab: [facility] [address] [facility] [address] Performing Lab: [facility] [address] [facility] [address] [facility] URINALYSIS W/REFLEX TO CULTURE SPECIFIC GRAVITY OF URINE BY REFRACTOMETR Y 1.024 1.003 - 1.030 10/01 Specimen Type: URINE No comment entered. Ordering Provider: CHARLEEN GONZALES Report Released Date/Time: Sep 03, 2022 12:59 PM Reporting Lab: [facility] [address] [facility] [address] Performing Lab: [facility] [address] [facility] [address] [facility] URINALYSIS W/REFLEX TO CULTURE UROBILINOGEN [MASS/VOLUME ] IN URINE <2.0mg/ dL <2.0 - 2.0 10/01 Specimen Type: URINE No comment entered. Ordering Provider: CHARLEEN GONZALES Report Released Date/Time: Sep 03, 2022 12:59 PM Reporting Lab: [facility] [address] [facility] [address] Performing Lab: [facility] [address] [facility] [address] [facility] URINALYSIS W/REFLEX TO CULTURE BILIRUBIN.TO J CARLOS [PRESENCE] IN URINE BY TEST STRIP NEG 10/01 Specimen Type: URINE No comment entered. Ordering Provider: CHARLEEN GONZALES Report Released Date/Time: Sep 03, 2022 12:59 PM Reporting Lab: [facility] [address] [facility] [address] Performing Lab: [facility] [address] [facility] [address] [facility] URINALYSIS W/REFLEX TO CULTURE KETONES [PRESENCE] IN URINE NEGmg/d L 10/01 Specimen Type: URINE No comment entered. Ordering Provider: CHARLEEN GONZALES Report Released Date/Time: Sep 03, 2022 12:59 PM Reporting Lab: [facility] [address] [facility] [address] Performing Lab: [facility] [address] [facility] [address] [facility] URINALYSIS W/REFLEX TO CULTURE GLUCOSE [MASS/VOLUME ] IN URINE BY TEST STRIP NEGmg/d L 10/01 Specimen Type: URINE No comment entered. Ordering Provider: CHARLEEN GONZALES Report Released Date/Time: Sep 03, 2022 12:59 PM Reporting Lab: [facility] [address] [facility] [address] Performing Lab: [facility] [address] [facility] [address] [facility] URINALYSIS W/REFLEX TO CULTURE PROTEIN [MASS/VOLUME ] IN URINE BY TEST STRIP TRACEmg /dL 10/01 Specimen Type: URINE No comment entered. Ordering Provider: CHARLEEN GONZALES Report Released Date/Time: Sep 03, 2022 12:59 PM Reporting Lab: [facility] [address] [facility] [address] Performing Lab: [facility] [address] [facility] [address] [facility] URINALYSIS W/REFLEX TO CULTURE PH OF URINE BY TEST STRIP 6.5 5 - 8 10/01 Specimen Type: URINE No comment entered. Ordering Provider: CHARLEEN GONZALES Report Released Date/Time: Sep 03, 2022 12:59 PM Reporting Lab: [facility] [address] [facility] [address] Performing Lab: [facility] [address] [facility] [address] [facility] URINALYSIS W/REFLEX TO CULTURE LEUKOCYTES [#/AREA] IN URINE SEDIMENT BY MICROSCOPY HIGH POWER FIELD 3 /[HPF] 0 - 5 10/01 Specimen Type: URINE No comment entered. Ordering Provider: CHARLEEN GONZALES Report Released Date/Time: Sep 03, 2022 12:59 PM Reporting Lab: [facility] [address] [facility] [address] Performing Lab: [facility] [address] [facility] [address] [facility] URINALYSIS W/REFLEX TO CULTURE ERYTHROCYTES [#/AREA] IN URINE SEDIMENT BY MICROSCOPY HIGH POWER FIELD 4 /[HPF] 0 - 3 10/01 H Specimen Type: URINE No comment entered. Ordering Provider: CHARLEEN GONZALES Report Released Date/Time: Sep 03, 2022 12:59 PM Reporting Lab: [facility] [address] [facility] [address] Performing Lab: [facility] [address] [facility] [address] [facility] URINALYSIS W/REFLEX TO CULTURE APPEARANCE OF URINE CLEAR 10/01 Specimen Type: URINE No comment entered. Ordering Provider: CHARLEEN GONZALES Report Released Date/Time: Sep 03, 2022 12:59 PM Reporting Lab: [facility] [address] [facility] [address] Performing Lab: [facility] [address] [facility] [address] [facility] URINALYSIS W/REFLEX TO CULTURE HEMOGLOBIN [PRESENCE] IN URINE NEG 10/01 Specimen Type: URINE No comment entered. Ordering Provider: CHARLEEN GONZALES Report Released Date/Time: Sep 03, 2022 12:59 PM Reporting Lab: [facility] [address] [facility] [address] Performing Lab: [facility] [address] [facility] [address] [facility] URINALYSIS W/REFLEX TO CULTURE NITRITE [PRESENCE] IN URINE BY TEST STRIP NEG 10/01 Specimen Type: URINE No comment entered. Ordering Provider: CHARLEEN GONZALES Report Released Date/Time: Sep 03, 2022 12:59 PM Reporting Lab: [facility] [address] [facility] [address] Performing Lab: [facility] [address] [facility] [address] [facility] URINALYSIS W/REFLEX TO CULTURE LEUKOCYTES [PRESENCE] IN URINE NEG 10/01 Specimen Type: URINE No comment entered. Ordering Provider: CHARLEEN GONZALES Report Released Date/Time: Sep 03, 2022 12:59 PM Reporting Lab: [facility] [address] [facility] [address] Performing Lab: [facility] [address] [facility] [address] [facility] MICROALBUM IN/CREATIN INE RATIO PANEL CREATININE [MASS/VOLUME ] IN URINE 128.0 mg/dL 10/01 Specimen Type: URINE No comment entered. Ordering Provider: CHARLEEN GONZALES Report Released Date/Time: Sep 03, 2022 12:59 PM Reporting Lab: [facility] [address] [facility] [address] Performing Lab: [facility] [address] [facility] [address] [facility] MICROALBUM IN/CREATIN INE RATIO PANEL MICROALBUMIN [MASS/VOLUME ] IN URINE 14.9 mg/dL 0.0 - 29.9 10/01 Specimen Type: URINE No comment entered. Ordering Provider: CHARLEEN GONZALES Report Released Date/Time: Sep 03, 2022 12:59 PM Reporting Lab: [facility] [address] [facility] [address] Performing Lab: [facility] [address] [facility] [address] [facility] MICROALBUM IN/CREATIN INE RATIO PANEL MICROALBUMIN /CREATININE [MASS RATIO] IN URINE 116.4 mg/g 0.0 - 29.9 10/01 H Specimen Type: URINE No comment entered. Ordering Provider: CHARLEEN GONZALES Report Released Date/Time: Sep 03, 2022 12:59 PM Reporting Lab: [facility] [address] [facility] [address] Performing Lab: [facility] [address] [facility] [address] [facility] 25-OH(WRJ) CALCIFEROL (VIT D2) [MASS/VOLUME ] IN SERUM OR PLASMA 37.7 ng/mL 20 - 50 10/01 Specimen Type: SERUM No comment entered. Ordering Provider: CHARLEEN GONZALES Report Released Date/Time: Sep 03, 2022 12:59 PM Reporting Lab: [facility] [address] [facility] [address] Performing Lab: [facility] [address] [facility] [address] [facility] TSH THYROTROPIN [UNITS/VOLUM E] IN SERUM OR PLASMA 0.73 u[IU]/m L 0.35 - 5.00 10/01 Specimen Type: SERUM No comment entered. Ordering Provider: CHARLEEN GONZALES Report Released Date/Time: Sep 03, 2022 12:59 PM Reporting Lab: [facility] [address] [facility] [address] Performing Lab: [facility] [address] [facility] [address] [facility] VIT[facility] B-12 COBALAMIN (VITAMIN B12) [MASS/VOLUME ] IN SERUM OR PLASMA 840 pg/mL 200 - 900 10/01 Specimen Type: SERUM No comment entered. Ordering Provider: CHARLEEN GONZALES Report Released Date/Time: Sep 03, 2022 12:59 PM Reporting Lab: [facility] [address] [facility] [address] Performing Lab: [facility] [address] [facility] [address] [facility] CBC PROFILE LEUKOCYTES [#/VOLUME] IN BLOOD BY AUTOMATED COUNT 10.3 10*3/uL 4.5 - 11.0 10/01 Specimen Type: BLOOD No comment entered. Ordering Provider: CHARLEEN GONZALES Report Released Date/Time: Sep 03, 2022 12:59 PM Reporting Lab: [facility] [address] [facility] [address] Performing Lab: [facility] [address] [facility] [address] [facility] CBC PROFILE ERYTHROCYTES [#/VOLUME] IN BLOOD BY AUTOMATED COUNT 4.54 10*6/uL 4.23 - 5.66 10/01 Specimen Type: BLOOD No comment entered. Ordering Provider: CHARLEEN GONZALES Report Released Date/Time: Sep 03, 2022 12:59 PM Reporting Lab: [facility] [address] [facility] [address] Performing Lab: [facility] [address] [facility] [address] [facility] CBC PROFILE HEMOGLOBIN [MASS/VOLUME ] IN BLOOD 13.8 g/dL 12.8 - 17 10/01 Specimen Type: BLOOD No comment entered. Ordering Provider: CHARLEEN GONZALES Report Released Date/Time: Sep 03, 2022 12:59 PM Reporting Lab: [facility] [address] [facility] [address] Performing Lab: [facility] [address] [facility] [address] [facility] CBC PROFILE HEMATOCRIT [VOLUME FRACTION] OF BLOOD BY AUTOMATED COUNT 41.8 39.2 - 50.4 10/01 Specimen Type: BLOOD No comment entered. Ordering Provider: CHARLEEN GONZALES Report Released Date/Time: Sep 03, 2022 12:59 PM Reporting Lab: [facility] [address] [facility] [address] Performing Lab: [facility] [address] [facility] [address] [facility] CBC PROFILE MCV [ENTITIC VOLUME] BY AUTOMATED COUNT 92.1 fL 82 - 99 10/01 Specimen Type: BLOOD No comment entered. Ordering Provider: CHARLEEN GONZALES Report Released Date/Time: Sep 03, 2022 12:59 PM Reporting Lab: [facility] [address] [facility] [address] Performing Lab: [facility] [address] [facility] [address] [facility] CBC PROFILE MCH [ENTITIC MASS] BY AUTOMATED COUNT 30.4 pg 26.2 - 32.6 10/01 Specimen Type: BLOOD No comment entered. Ordering Provider: CHARLEEN GONZALES Report Released Date/Time: Sep 03, 2022 12:59 PM Reporting Lab: [facility] [address] [facility] [address] Performing Lab: [facility] [address] [facility] [address] [facility] CBC PROFILE MCHC [MASS/VOLUME ] BY AUTOMATED COUNT 33.0 g/dL 30.8 - 35.1 10/01 Specimen Type: BLOOD No comment entered. Ordering Provider: CHARLEEN GONZALES Report Released Date/Time: Sep 03, 2022 12:59 PM Reporting Lab: [facility] [address] [facility] [address] Performing Lab: [facility] [address] [facility] [address] [facility] CBC PROFILE PLATELETS [#/VOLUME] IN BLOOD BY AUTOMATED COUNT 270 10*3/uL 140 - 360 10/01 Specimen Type: BLOOD No comment entered. Ordering Provider: CHARLEEN GONZALES Report Released Date/Time: Sep 03, 2022 12:59 PM Reporting Lab: [facility] [address] [facility] [address] Performing Lab: [facility] [address] [facility] [address] [facility] CBC PROFILE PLATELET MEAN VOLUME [ENTITIC VOLUME] IN BLOOD BY AUTOMATED COUNT 10.3 fL 9.2 - 12.4 10/01 Specimen Type: BLOOD No comment entered. Ordering Provider: CHARLEEN GONZALES Report Released Date/Time: Sep 03, 2022 12:59 PM Reporting Lab: [facility] [address] [facility] [address] Performing Lab: [facility] [address] [facility] [address] [facility] CBC PROFILE ERYTHROCYTE DISTRIBUTION WIDTH [RATIO] BY AUTOMATED COUNT 13.2 12.0 - 16.0 10/01 Specimen Type: BLOOD No comment entered. Ordering Provider: CHARLEEN GONZALES Report Released Date/Time: Sep 03, 2022 12:59 PM Reporting Lab: [facility] [address] [facility] [address] Performing Lab: [facility] [address] [facility] [address] [facility] CBC PROFILE LYMPHOCYTES/ 100 LEUKOCYTES IN BLOOD BY AUTOMATED COUNT 17.2 14.0 - 42.3 10/01 Specimen Type: BLOOD No comment entered. Ordering Provider: CHARLEEN GONZALES Report Released Date/Time: Sep 03, 2022 12:59 PM Reporting Lab: [facility] [address] [facility] [address] Performing Lab: [facility] [address] [facility] [address] [facility] CBC PROFILE MONOCYTES/10 0 LEUKOCYTES IN BLOOD BY AUTOMATED COUNT 5.7 5.1 - 13.7 10/01 Specimen Type: BLOOD No comment entered. Ordering Provider: CHARLEEN GONZALES Report Released Date/Time: Sep 03, 2022 12:59 PM Reporting Lab: [facility] [address] [facility] [address] Performing Lab: [facility] [address] [facility] [address] [facility] CBC PROFILE GRANULOCYTES /100 LEUKOCYTES IN BLOOD BY AUTOMATED COUNT 67.4 43.7 - 75.8 10/01 Specimen Type: BLOOD No comment entered. Ordering Provider: CHARLEEN GONZALES Report Released Date/Time: Sep 03, 2022 12:59 PM Reporting Lab: [facility] [address] [facility] [address] Performing Lab: [facility] [address] [facility] [address] [facility] CBC PROFILE EOSINOPHILS/ 100 LEUKOCYTES IN BLOOD BY AUTOMATED COUNT 7.8 0.4 - 6.8 10/01 H Specimen Type: BLOOD No comment entered. Ordering Provider: CHARLEEN GONZALES Report Released Date/Time: Sep 03, 2022 12:59 PM Reporting Lab: [facility] [address] [facility] [address] Performing Lab: [facility] [address] [facility] [address] [facility] CBC PROFILE BASOPHILS/10 0 LEUKOCYTES IN BLOOD BY AUTOMATED COUNT 1.5 0.1 - 2.0 10/01 Specimen Type: BLOOD No comment entered. Ordering Provider: CHARLEEN GONZALES Report Released Date/Time: Sep 03, 2022 12:59 PM Reporting Lab: [facility] [address] [facility] [address] Performing Lab: [facility] [address] [facility] [address] [facility] CBC PROFILE IMMATURE GRANULOCYTES /100 LEUKOCYTES IN BLOOD BY AUTOMATED COUNT 0.4 0.0 - 0.7 10/01 Specimen Type: BLOOD No comment entered. Ordering Provider: CHARLEEN GONZALES Report Released Date/Time: Sep 03, 2022 12:59 PM Reporting Lab: [facility] [address] [facility] [address] Performing Lab: [facility] [address] [facility] [address] [facility] CBC PROFILE NUCLEATED ERYTHROCYTES [#/VOLUME] IN BLOOD BY AUTOMATED COUNT 0.0 /100{WB Cs} 0.0 - 0.0 10/01 Specimen Type: BLOOD No comment entered. Ordering Provider: CHARLEEN GONZALES Report Released Date/Time: Sep 03, 2022 12:59 PM Reporting Lab: [facility] [address] [facility] [address] Performing Lab[facility] [address] [facility] [address] [facility] PROFILE IMMATURE GRANULOCYTES [#/VOLUME] IN BLOOD 0.0 10*3/uL 0 - 0.06 10/01 Specimen Type: BLOOD No comment entered. Ordering Provider: CHARLEEN GONZALES Report Released Date/Time: Sep 03, 2022 12:59 PM Reporting Lab: [facility] [address] [facility] [address] Performing Lab: [facility] [address] [facility] [address] [facility] PROFILE BASOPHILS [#/VOLUME] IN BLOOD BY AUTOMATED COUNT 0.2 10*3/uL 0.01 - 0.13 10/01 H Specimen Type: BLOOD No comment entered. Ordering Provider: CHARLEEN GONZALES Report Released Date/Time: Sep 03, 2022 12:59 PM Reporting Lab: [facility] [address] [facility] [address] Performing Lab: [facility] [address] [facility] [address] [facility] PROFILE EOSINOPHILS [#/VOLUME] IN BLOOD BY AUTOMATED COUNT 0.8 10*3/uL 0.03 - 0.44 10/01 H Specimen Type: BLOOD No comment entered. Ordering Provider: CHARLEEN GONZALES Report Released Date/Time: Sep 03, 2022 12:59 PM Reporting Lab: [facility] [address] [facility] [address] Performing Lab: [facility] [address] [facility] [address] [facility] CBC PROFILE LYMPHOCYTES [#/VOLUME] IN BLOOD BY AUTOMATED COUNT 1.8 10*3/uL 1.0 - 3.2 10/01 Specimen Type: BLOOD No comment entered. Ordering Provider: CHARLEEN GONZALES Report Released Date/Time: Sep 03, 2022 12:59 PM Reporting Lab: [facility] [address] [facility] [address] Performing Lab: [facility] [address] [facility] [address] [facility] CBC PROFILE MONOCYTES [#/VOLUME] IN BLOOD BY AUTOMATED COUNT 0.6 10*3/uL 0.3 - 1.1 10/01 Specimen Type: BLOOD No comment entered. Ordering Provider: CHARLEEN GONZALES Report Released Date/Time: Sep 03, 2022 12:59 PM Reporting Lab: [facility] [address] [facility] [address] Performing Lab: [facility] [address] [facility] [address] [facility] CBC PROFILE NEUTROPHILS [#/VOLUME] IN BLOOD BY AUTOMATED COUNT 7.0 10*3/uL 2.2 - 7.6 10/01 Specimen Type: BLOOD No comment entered. Ordering Provider: CHARLEEN GONZALES Report Released Date/Time: Sep 03, 2022 12:59 PM Reporting Lab: [facility] [address] [facility] [address] Performing Lab: [facility] [address] [facility] [address] [facility] CBC PROFILE NUCLEATED ERYTHROCYTES [#/VOLUME] IN BLOOD BY AUTOMATED COUNT 0.00 10*3/uL 0 - 0 10/01 Specimen Type: BLOOD No comment entered. Ordering Provider: CHARLEEN GONZALES Report Released Date/Time: Sep 03, 2022 12:59 PM Reporting Lab: [facility] [address] [facility] [address] Performing Lab: [facility] [address] [facility] [address] [facility] P4 GLU,BUN,CR EAT,LYTES, CA UREA NITROGEN [MASS/VOLUME ] IN SERUM OR PLASMA 19 mg/dL 7 - 25 10/01 Specimen Type: PLASMA Comment: Tests performed on [employer] (405) SN:[id number] Ordering Provider: CHARLEEN GONZALES Report Released Date/Time: Sep 03, 2022 12:59 PM Reporting Lab: [facility] [address] [facility] [address] Performing Lab: [facility] [address] [facility] [address] [facility] P4 GLU,BUN,CR EAT,LYTES, CA SODIUM [MOLES/VOLUM E] IN SERUM OR PLASMA 140 mmol/L 135 - 145 10/01 Specimen Type: PLASMA Comment: Tests performed on [employer] (405) SN:[id number] Ordering Provider: CHARLEEN GONZALES Report Released Date/Time: Sep 03, 2022 12:59 PM Reporting Lab: [facility] [address] [facility] [address] Performing Lab: [facility] [address] [facility] [address] [facility] P4 GLU,BUN,CR EAT,LYTES, CA POTASSIUM [MOLES/VOLUM E] IN SERUM OR PLASMA 3.7 mmol/L 3.5 - 5.0 10/01 Specimen Type: PLASMA Comment: Tests performed on [employer] (405) SN:[id number] Ordering Provider: CHARLEEN GONZALES Report Released Date/Time: Sep 03, 2022 12:59 PM Reporting Lab: [facility] [address] [facility] [address] Performing Lab: [facility] [address] [facility] [address] [facility] P4 GLU,BUN,CR EAT,LYTES, CA CHLORIDE [MOLES/VOLUM E] IN SERUM OR PLASMA 105 mmol/L 100 - 110 10/01 Specimen Type: PLASMA Comment: Tests performed on [employer] (405) SN:[id number] Ordering Provider: CHARLEEN GONZALES Report Released Date/Time: Sep 03, 2022 12:59 PM Reporting Lab: [facility] [address] [facility] [address] Performing Lab: [facility] [address] [facility] [address] [facility] P4 GLU,BUN,CR EAT,LYTES, CA CARBON DIOXIDE, TOTAL [MOLES/VOLUM E] IN SERUM OR PLASMA 27 mmol/L 20 - 30 10/01 Specimen Type: PLASMA Comment: Tests performed on [employer] (405) SN:[id number] Ordering Provider: CHARLEEN GONZALES Report Released Date/Time: Sep 03, 2022 12:59 PM Reporting Lab: [facility] [address] [facility] [address] Performing Lab: [facility] [address] [facility] [address] [facility] P4 GLU,BUN,CR EAT,LYTES, CA ANION GAP IN SERUM OR PLASMA 8 mmol/L 4 - 16 10/01 Specimen Type: PLASMA Comment: Tests performed on [employer] (405) SN:[id number] Ordering Provider: CHARLEEN GONZALES Report Released Date/Time: Sep 03, 2022 12:59 PM Reporting Lab: [facility] [address] [facility] [address] Performing Lab: [facility] [address] [facility] [address] [facility] P4 GLU,BUN,CR EAT,LYTES, CA GLUCOSE [MASS/VOLUME ] IN SERUM OR PLASMA 162 mg/dL 65 - 100 10/01 H Specimen Type: PLASMA Comment: Tests performed on [employer] (405) SN:[id number] Ordering Provider: CHARLEEN GONZALES Report Released Date/Time: Sep 03, 2022 12:59 PM Reporting Lab: [facility] [address] [facility] [address] Performing Lab: [facility] [address] [facility] [address] [facility] P4 GLU,BUN,CR EAT,LYTES, CA CREATININE [MASS/VOLUME ] IN SERUM OR PLASMA 1.40 mg/dL 0.5 - 1.5 10/01 Specimen Type: PLASMA Comment: Tests performed on [employer] (405) SN:[id number] Ordering Provider: CHARLEEN GONZALES Report Released Date/Time: Sep 03, 2022 12:59 PM Reporting Lab: [facility] [address] [facility] [address] Performing Lab: [facility] [address] [facility] [address] [facility] P4 GLU,BUN,CR EAT,LYTES, CA CALCIUM [MASS/VOLUME ] IN SERUM OR PLASMA 9.7 mg/dL 8.5 - 10.5 10/01 Specimen Type: PLASMA Comment: Tests performed on [employer] (405) SN:[id number] Ordering Provider: CHARLEEN GONZALES Report Released Date/Time: Sep 03, 2022 12:59 PM Reporting Lab: [facility] [address] [facility] [address] Performing Lab: [facility] [address] [facility] [address] [facility] P4 GLU,BUN,CR EAT,LYTES, CA eGFR(CKD-EPI 2020) 53 mL/min 60 10/01 L Specimen Type: PLASMA Comment: Tests performed on [employer] (405) SN:[id number] Ordering Provider: CHARLEEN GONZALES Report Released Date/Time: Sep 03, 2022 12:59 PM Reporting Lab: [facility] [address] [facility] [address] Performing Lab: [facility] [address] [facility] [address] [facility] LIVER PROFILE PROTEIN [MASS/VOLUME ] IN SERUM OR PLASMA 7.3 g/dL 6.0 - 8.5 03/29 /2023 Specimen Type: PLASMA Comment: Tests performed on [employer] (405) SN:[id number] Ordering Provider: CHARLEEN GONZALES Report Released Date/Time: Sep 03, 2022 12:59 PM Reporting Lab: [facility] [address] [facility] [address] Performing Lab: [facility] [address] [place] [facility] [place] [address] [facility] LIVER PROFILE ALBUMIN [MASS/VOLUME ] IN SERUM OR PLASMA 3.4 g/dL 3.2 - 5.0 10/01 Specimen Type: PLASMA Comment: Tests performed on [employer] (405) SN:[id number] Ordering Provider: CHARLEEN GONZALES Report Released Date/Time: Sep 03, 2022 12:59 PM Reporting Lab: [facility] [address] [facility] [address] Performing Lab: [facility] [address] [facility] [address] [facility] LIVER PROFILE BILIRUBIN.TO J CARLOS [MASS/VOLUME ] IN SERUM OR PLASMA 2.1 mg/dL 0.2 - 1.2 10/01 H Specimen Type: PLASMA Comment: Tests performed on [employer] (405) SN:[id number] Ordering Provider: CHARLEEN GONZALES Report Released Date/Time: Sep 03, 2022 12:59 PM Reporting Lab: [facility] [address] [facility] [address] Performing Lab: [facility] [address] [facility] [address] [facility] LIVER PROFILE BILIRUBIN.DI RECT [MASS/VOLUME ] IN SERUM OR PLASMA 0.5 mg/dL 0 - 0.5 10/01 Specimen Type: PLASMA Comment: Tests performed on [employer] (405) SN:[id number] Ordering Provider: CHARLEEN GONZALES Report Released Date/Time: Sep 03, 2022 12:59 PM Reporting Lab: [facility] [address] [facility] [address] Performing Lab: [facility] [address] [facility] [address] [facility] LIVER PROFILE ALKALINE PHOSPHATASE [ENZYMATIC ACTIVITY/VOL UME] IN SERUM OR PLASMA 78 U/L 40 - 150 10/01 Specimen Type: PLASMA Comment: Tests performed on [employer] (405) SN:[id number] Ordering Provider: CHARLEEN GONZALES Report Released Date/Time: Sep 03, 2022 12:59 PM Reporting Lab: [facility] [address] [place] [facility] [place] [place] [address] Performing Lab: [facility] [address] [place] [facility] [place] [place] [address] [facility] LIVER PROFILE ALANINE AMINOTRANSFE RASE [ENZYMATIC ACTIVITY/VOL UME] IN SERUM OR PLASMA 29 U/L 7 - 52 10/01 Specimen Type: PLASMA Comment: Tests performed on [employer] (405) SN:[id number] Ordering Provider: CHARLEEN GONZALES Report Released Date/Time: Sep 03, 2022 12:59 PM Reporting Lab: [facility] [address] [place] [place] [place] [place] [address] Performing Lab: [facility] [address] [facility] [address] [facility] LIVER PROFILE ASPARTATE AMINOTRANSFE RASE [ENZYMATIC ACTIVITY/VOL UME] IN SERUM OR PLASMA 20 U/L 5 - 34 10/01 Specimen Type: PLASMA Comment: Tests performed on [employer] (405) SN:[id number] Ordering Provider: CHARLEEN GONZALES Report Released Date/Time: Sep 03, 2022 12:59 PM Reporting Lab: [facility] [address] [place] [facility] [place] [place] [address] Performing Lab: [facility] [address] [place] [facility] [place] [address] [facility] LIVER PROFILE FIB-4 SCORE 1.02 {index} <2.67 - 2.67 10/01 Specimen Type: PLASMA Comment: Tests performed on [employer] (405) SN:[id number] Ordering Provider: CHARLEEN GONZALES Report Released Date/Time: Sep 03, 2022 12:59 PM Reporting Lab: [facility] [address] [place] [facility] [place] [address] Performing Lab: [facility] [address] [place] [facility] [place] [address] [facility] LIPOPROTEI N CHOLESTERO L FRACT. PANEL CHOLESTEROL [MASS/VOLUME ] IN SERUM OR PLASMA 104 mg/dL 0 - 199 10/01 Specimen Type: PLASMA Comment: Tests performed on [employer] (405) SN:[id number] Ordering Provider: CHARLEEN GONZALES Report Released Date/Time: Sep 03, 2022 12:59 PM Reporting Lab: [facility] [address] [facility] [address] Performing Lab: [facility] [address] [place] [place] [place] [address] [facility] LIPOPROTEI N CHOLESTERO L FRACT. PANEL TRIGLYCERIDE [MASS/VOLUME ] IN SERUM OR PLASMA 219 mg/dL 0 - 149 10/01 H Specimen Type: PLASMA Comment: Tests performed on [employer] (405) SN:[id number] Ordering Provider: CHARLEEN GONZALES Report Released Date/Time: Sep 03, 2022 12:59 PM Reporting Lab: [facility] [address] [place] [facility] [place] [address] Performing Lab: [facility] [address] [place] [facility] [place] [address] [facility] LIPOPROTEI N CHOLESTERO L FRACT. PANEL CHOLESTEROL IN HDL [MASS/VOLUME ] IN SERUM OR PLASMA 31 mg/dL 40 10/01 L Specimen Type: PLASMA Comment: Tests performed on [employer] (405) SN:[id number] Ordering Provider: CHARLEEN GONZALES Report Released Date/Time: Sep 03, 2022 12:59 PM Reporting Lab: [facility] [address] [place] [facility] [place] [address] Performing Lab: [facility] [address] [place] [facility] [place] [address] [facility] LIPOPROTEI N CHOLESTERO L FRACT. PANEL CHOLESTEROL IN LDL [MASS/VOLUME ] IN SERUM OR PLASMA BY CALCULATION 29 mg/dL 0 - 129 10/01 Specimen Type: PLASMA Comment: Tests performed on [employer] (405) SN:[id number] Ordering Provider: CHARLEEN GONZALES Report Released Date/Time: Sep 03, 2022 12:59 PM Reporting Lab: [facility] [address] [place] [facility] [facility] [place] [address] Performing Lab: [facility] [address] [place] [facility] [place] [address] [facility] Encounters Combined list of: 1) Encounters from Department of Veterans Affairs facilities going back up to thelast 18 months. 2) Encounters from the Department of Defense facilities going back up to 280 months. Location Location Details Encounter Type Encounter Number Reason For Visit Attending Provider ADM Date DC Date Status Disposition Source [facility] Outpatient Encounter [id number] 10/02 [facility] OFFICE O/P NEW [place] 60-74 MIN [id number] Diagnos is: ICD-10- CM Z77.29 Contact with and exposur e to other hazardo us substan germán<br/ > CHARLEEN GONZALES 10/08 [facility] UNLISTED SPEC DERM SVC/PX [id number] Diagnos is: ICD-10- CM Z13.89 Encount er for screeni ng for other disorde r
Celeste KIRKLAND 11/04 [facility] Outpatient Encounter [id number]. Diagnos is: ICD-10- CM D48.5 Neoplas m of uncerta in behavio r of skin
ARVDAVE,RAMYA GINIA 11/04 [facility] Outpatient Encounter [id number] 11/11 [facility] OFFICE O/P NEW LOW 30-44 MIN [id number] Diagnos is: ICD-10- CM Z94.0 Kidney transpl ant status< br/> ARVOLD,VIR GINIA 03/23 [facility] Outpatient Encounter [id number] 06/02 [facility] Outpatient Encounter [id number] 07/15 [facility] HEARING AID EXAM BOTH EARS [id number] Diagnos is: ICD-10- CM H90.3 Sensori neural hearing loss, bilater al
YULY PORTILLO R 07/30 [facility] Outpatient Encounter [id number] 09/14 [facility] Social History Combined list of available smoking, tobacco, and other social history from Department of Defense and Veterans Affairs facilities. Social History Type Response Date Comment Sour e Tobacco smoking status NHIS VA-TOBACCO USE > 15 LESS THAN 30 YEARS 09/03/2022 [facility] CB History of tobacco use VA-TOBACCO USE ADVICE 09/03/2022 [facility]
--- OUTSIDE RECORDS SUMMARY | 2024-04-04 13:49 | XMS_ITS ---
Author Name [facility] Organization [facility] [place] Address [address] [place] [address] Care Team Providers Care Offshore Wind Turbine Technician Name Role Phone CHARLEEN GONZALES Primary Care [...] PART A Aug 06, 2013 PART A [id number] [phone] FUADRAMÓN ETHEL BEAN PATIENT MEDICARE (WNR) MEDICARE (M) PART B Aug 06, 2013 PART B [id number] FUADRAMÓNETHEL PATIENT Selected Encounter This section includes the information on record at [place] for the Encounter. Date/Time Encounter Type Encounter Description Reason Pro vider Source Jun 02, 2023 12:25 PM Outpatient Encounter ADMIN PAT ACTIVTIES (MASNONCT) IHE Encounter Template Text not used by DC Plan of Treatment: Future Appointments (+ 6 [...] 20 appointments. The data comes from all [place] treatment facilities. Appointment Date/Time Appointment Type Appointme nt Facility Name Jul 30, 2023 11:00 AM AMBULATORY - [facility]AB [facility] Encounter Notes: All associated encounter notes [...] Please contact to schedule /melvin/ JENNA PORTILLO Toter Signed: 06/02/2023 12:52 Receipt Acknowledged By: 06/02/2023 13:17 /es/ STEPHANIE PALMER Advanced Central Service Technician --- Original Document --- 06/02/23 CCC: SCHEDULING ADMINISTRATION: Patient Demographics Patient Name: ETHEL AKINS Patient Primary Phone: [phone] Patient Primary Address: [address] [place] [address] Patient : 1950 Patient Age: 72 Call Back Number: [phone] Caller/Recipient Relation to Patient: Other If Other Describe Relation to Patient: Caller Name: Mara Administrative Administrative Note Reason: Other Administrative Note Comments: Vet calling to request Vet be moved PACT to [place] from [place]. Vet is also requesting audiology consult for hearing aids. /es/ MURRAY MCNEAL 1 [facility] Signed: 06/02/2023 12:26 Receipt Acknowledged By: 06/02/2023 12:33 /es/ NAKUL BRICE Registered Nurse 06/02/2023 12:51 /melvin/ JENNA PORTILLO Toter * AWAITING SIGNATURE * NIMO MANCINI ASHLEY R [facility] Jun 02, 2023 12:25 PM ADMINISTRATIVE NOT E: LOCAL TITLE: CCC: SCHEDULING ADMINISTRATION STANDARD TITLE: ADMINISTRATIVE NOTE DATE OF NOTE: JUN 02, 2023@12:25:53 ENTRY DATE: JUN 02, 2023@12:25:53 AUTHOR: MURRAY RUSSELL COSIGNER: URGENCY: STATUS: COMPLETED CCC: SCHEDULING ADMINISTRATION Has ADDENDA Patient Demographics Patient Name: ETHEL AKINS Patient Primary Phone: [phone] Patient Primary [address]: [address] [place] [id number] Patient : 1950 Patient Age: 72 Call Back Number: [id number] Caller/Recipient Relation to Patient: Other If Other Describe Relation to Patient: Caller Name: Mara Administrative Administrative Note Reason: Other Administrative Note Comments: Vet calling to request Vet be moved PACT to [place] from [place]. Vet is also requesting audiology consult for hearing aids. /melvin/ MURRAY RUSSELL VISN 1 [facility] Signed: 06/02/2023 12:26 Receipt Acknowledged By: 06/02/2023 12:33 /melvin/ NAKUL BRICE Registered Nurse 06/02/2023 12:51 /melivn/ JENNA PORTILLO Toter 06/02/2023 15:29 /melvin/ NIMO MANCINI 06/02/2023 ADDENDUM STATUS: COMPLETED RTC placed for EVAL appointment. Please contact to schedule /melvin/ JENNA PORTILLO Toter Signed: 06/02/2023 12:52 Receipt Acknowledged By: 06/02/2023 13:17 /melvin/ STEPHANIE PALMER Advanced Central Service Technician 06/02/2023 ADDENDUM STATUS: COMPLETED assigned and scheduled w/ New Pact H 09/02/23 /melvin/ NIMO MANCINI Signed: 06/02/2023 15:29 MURRAY RUSSELL Ángela [facility]
--- OUTSIDE RECORDS SUMMARY | 2024-04-04 13:49 | XMS_ITS | Encounter Summary ---
Author Name [facility] [place] Organization [facility] [place] Address [address] [place] [address] Care Team Providers Care Game Master Name Role Phone CHARLEEN GONZALES Primary Care [...] PART A Aug 06, 2013 PART A [id number] ETHEL AKINS SR PATIENT MEDICARE (WNR) MEDICARE (M) PART B Aug 06, 2013 PART B [id number] ETHEL AKINS PATIENT Selected Encounter This section includes the information on record at [place] for the Encounter. Date/Time Encounter Type Encounter [...] 20 appointments. The data comes from all [place] treatment facilities. Appointment Date/Time Appointment Type Appointme [...] Signed: 07/15/2023 12:23 07/30/2023 ADDENDUM STATUS: COMPLETED came in for audiology appt today - asked if they cleared up the eligibility issue - he then called his who has been dealing with this. She said she spoke with Marisela Lopez from [facility] - a financial services rep and said he is abosolutely [facility]. TW sent the following message via teams to Marisela to see if there is any updates as the also has an appt in August for [place], [place] to establish care. Message to Marisela Lopez: Good morning I have Ethel Urbano [age] here for audiology appt - he is still coming up as catagory 8g and not suppose to be scheduled for appts (also has appt in [place] to establish care) There are no notes in the chart or anything saying he qualifies. She said you told her no matter what he is eligible to get [facility] aids [facility] the [facility] /melvin/ HETAL DAVENPORT Signed: 07/30/2023 10:57 08/31/2023 ADDENDUM STATUS: COMPLETED [facility] called. He is not enrolled at this time and she wishes to cancel upcoming appt. in [place]. He has outside PCP with great outside medical coverage and at this time does not need anything from the [facility]. She wishes to cancel and does not wish to reschedule at this time. She knows to reach out if anything in their situation changes. /melvin/ RICHIE DOWNEY Signed: 08/31/2023 11:19 HETAL ARREOLA [facility]
--- NOTE | 2024-04-04 13:50 | SKI_PTH ---
PATIENT: Cody Bolden LOC: [facility]ID U#:[id number] AGE/SX: 73/M ROOM: RE04/04/[address]: Lazara Peres : 1950 BED: DIS: 04/04/2024 SPEC #: [id number] RECD: 04/04/24 17:05 STATUS: CASEY REQ #: [id number] TONIE: 04/04/24 13:[address]: Lazara Peres DEPT: Surgical Specimen RECD BY: Rosetta Dumont ENTERED: 04/04/24 17:07 SP TYPE: BRIANA MERRILL DR: Urbano Jimenez DO Tissues: 1 - SKIN BIOPSY(SHAVE/PUNCH) Procedures: SKIN LEVEL 4 Comments: [id number]
--- OUTSIDE RECORDS SUMMARY | 2024-04-04 13:50 | XMS_ITS | Encounter Summary ---
Author Organization [facility] Address [address] [place] [address] Care Team Providers Care Churn Operator Margarine Name Role Phone Urbano Denis DO Primary Care Provider [phone] Encounter Details Date Type Department Care Team (Late st Contact Info) Description 09/14/2022 Lab Requisition [facility] Pathology & Laboratory Medicine - [facility] [address] [place] [address] Outr Resulting Lab, Provider Social History Tobacco [...] 14.3 See Note ng/mL 09/16/2022 13:[address] [facility] Comment: NOTE: Tacrolimus Therapeutic Range: 3-12 ng/mL (The goal level is based on clinical context). Assayed utilizing [employer] Chemiluminescent technology. ??Values obtained using different assay methods cannot be used interchangeably. Blood VENOUS BLOOD / Unknown 09/14/2022 5:40 EDT 09/15/2022 16:46 EDT Provider Outr Resulting Lab CHEMISTRY & BLOOD GAS ORDERABLES [facility] [address] [place] [address] documented in this encounter Visit Diagnoses Not on filedocumented in this encounter Care Teams Churn Operator Margarine Relationship Specialty Start Date End Date Urbano Denis DO [address] [place] [address] PCP - General 09/27/14 documented as of this encounter
--- OUTSIDE RECORDS SUMMARY | 2024-04-04 13:50 | XMS_ITS | Clinical Summary ---
Author Organization [facility] Address [address] [place] [address] Care Team Providers Care Septic Tank Setter Name Role Phone Urbano Denis DO Primary Care Provider +1- [phone] Allergies No known active allergies Medications Medication [...] kidney biopsy 2014 Cardiomyopathy due to hypertension ([facility]) Overview: echo 09/17: ef 40%, concentric LVH Hyperparathyroidism, secondary renal ([facility]) Overview: ICD10 Update Auto Replacement Type 2 diabetes mellitus wit h renal manifestations ([facility]) Overview: dx 2011, - retinopathy, - neuropathy ICD10 Update Auto Replacement Chronic kidney disease, stage V ([facility]) Encounters Date Type Department Care Team Description 03/24/2024 Lab Requisition [facility] Pathology & Laboratory Medicine [address] [address] Outr Resulting Lab, Provider 02/14/2024 Lab Requisition [facility] Pathology & Laboratory [address] [address] Outr Resulting Lab, Provider from Last 3 Months Surgical History Surgery Date Site/Laterality Comments KNEE ARTHROSCOPY Medical History Medical History Date Comments CVA (cerebral infarction) 2013 Cardiomyopathy due to hypertension ([facility]) echo 09/17: ef 40%, concentric LVH Dyslipidemia Secondary hyperparathyroidis m (of renal origin) Obesity (BMI 30-39.9) GERD (gastroesophageal reflux disease) Diabetes mellitus type 2, co ntrolled ([facility]) dx 2011, - retinopathy, - neuropathy ARIELLA (obstructive sleep apnea) Chronic kidney disease, stag e IV (severe) ([facility]) Social History Tobacco Use Types Packs/Day [...] ??F) 10/17/2014 0528 EDT Respiratory Rate 16 10/17/201428 EDT Oxygen Saturation 92% 10/17/2014527 EDT Inhaled [...] 2008 Fall Risk Screening 2013 COVID-19 Vaccine (2022- season) 2023 Procedures Procedure Name Priority Date/Time Associated Diagnosis Comments TACROLIMUS (FK506) Routine 03/23/2024 12 :58 EDT TACROLIMUS (FK506) Routine 02/14/2024 11 :12 EDT from Last 3 Months Results * TACROLIMUS (FK506) (03/23/2024 12:58 EDT) Only the most recent of2 resultswithin the time period is included. Tacrolimus 9.0 See Note ng/mL 03/25/2024 14:32 EDT [facility] Comment: NOTE: Tacrolimus Therapeutic Range: 3-12 ng/mL (The goal level is based on clinical context). Assayed utilizing [employer] Chemiluminescent technology. ??Values obtained using different assay methods cannot be used interchangeably. Blood VENOUS BLOOD / Unknown 03/23/2024 12:58 EDT 03/24/2024 18:55 EDT Provider Outr Resulting Lab CHEMISTRY & BLOOD GAS ORDERABLES [facility] [address] [place], [place] [id number] from Last 3 Months Advance Directives For more information, please contact: [phone] * Full Code (Latest Code Status on [...] TIME OF CONSENT IN PPR Care Teams Septic Tank Setter Relationship Specialty Start Date End Date Urbano Denis DO [address] [place] [address] PCP - General 09/27/14
--- OUTSIDE RECORDS SUMMARY | 2024-04-04 13:50 | XMS_ITS | Encounter Summary ---
Author Organization [facility] Address [address] [place] [address] Care Team Providers Care Cement Mason Helper Name Role Phone Urbano Denis DO Primary Care Provider +1- [phone] Encounter Details Date Type Department Care Team (Late st Contact Info) Description 09/12/2022 Lab Requisition [facility] Pathology & Laboratory Medicine - [facility] [address] [place] [address] Outr Resulting Lab, Provider Social History Tobacco [...] 14.5 See Note mg/dL 09/13/2022 8:25 EST [facility] Comment: NOTE: Reference range has not been established for calcium concentration in random urine specimens. Urine URINE / Unknown 09/12/2022 1 3:55 EST 09/12/2022 21:45 EST Provider Outr Resulting Lab URINALYSIS O RDERABLES Performing Organization Address [facility] Co de Phone Number [facility] [address] [place] [address] * MAGNESIUM,URINE RANDOM (09/12/2022 13:55 EST) Magnesium, Urine 19.9 See Note mg/dL 09/13/2022 8:27 EST [facility] Comment: NOTE: Reference range has not been established for magnesium concentration in random urine specimens. Urine URINE / Unknown 09/12/2022 1 3:55 EST 09/12/2022 21:45 EST Provider Outr Resulting Lab URINALYSIS O RDERABLES Performing Organization Address City/[facility]/ZIP Co de Phone Number [facility] [address] [place] [address] * PHOSPHORUS, URINE RANDOM (09/12/2022 13:55 EST) Phosphorous, Urine 21.9 See Note mg/dL 09/13/2022 8:25 EST [facility] Comment: NOTE: Reference range has not been established for phosporous concentration in random urine specimens. Urine URINE / Unknown 09/12/2022 1 3:55 EST 09/12/2022 21:45 EST Provider Outr Resulting Lab URINALYSIS O RDERABLES Performing Organization Address City/State/[facility] Co de Phone Number [facility] [address] [place] [address] documented in this encounter Visit Diagnoses Not on filedocumented in this encounter Care Teams Cement Mason Helper Relationship Specialty Start Date End Date Urbano Denis DO [address] [place] [address] PCP - General 09/27/14 documented as of this encounter
--- OUTSIDE RECORDS SUMMARY | 2024-04-04 13:50 | XMS_ITS | Encounter Summary ---
Author Organization [facility] Address [address] [place] [address] Care Team Providers Care Technical Sme Name Role Phone Urbano Denis DO Primary Care Provider +1- [phone] Encounter Details Date Type Department Care Team (Late st Contact Info) Description 04/24/2021 Lab Requisition [facility] Pathology & Laboratory Medicine - [facility] [address] [place] [address] Outr Resulting Lab, Provider Social History Tobacco [...] 0.0 - 6.5 ng/mL 04/24/2021 17:39 EDT [facility] Blood VENOUS BLOOD / Unknown 04/23/2021 11:45 EDT 04/24/2021 16:43 EDT Narrative [facility] - 04/24/2021 17:39 EDT NOTE: Serum PSA concentration should not be interpreted as absolute evidence for the presence or absence of malignant disease. Assayed on Siemens ADVIA TIME PLUS Qaur XPT using chemiluminescent technology.??Values obtained by using different assay methods cannot be used interchangeably. Provider Outr Resulting Lab CHEMISTRY & BLOOD GAS ORDERABLES [facility] [address] [place] [address] documented in this encounter Visit Diagnoses Not on filedocumented in this encounter Care Teams Technical Sme Relationship Specialty Start Date End Date Urbano Denis DO [address] [place] [address] PCP - General 09/27/14 documented as of this encounter
--- OUTSIDE RECORDS SUMMARY | 2024-04-04 13:50 | XMS_ITS | Encounter Summary ---
Author Organization [facility] Address [address] [place] [address] Care Team Providers Care Nonprofit Financial Controller Name Role Phone Urbano Denis DO Primary Care Provider +1- [phone] Encounter Details Date Type Department Care Team (Late st Contact Info) Description 03/24/2024 Lab Requisition [facility] Pathology & Laboratory Medicine - [facility] [address] [place] [address] Outr Resulting Lab, Provider Social History Tobacco [...] TACROLIMUS (FK506) Routine 03/23/2024 12 :58 EDT documented in this encounter Results * TACROLIMUS (FK506) (03/23/2024 12:58 EDT) Tacrolimus 9.0 See Note ng/mL 03/25/2024 14:32 EDT [facility] Comment: NOTE: Tacrolimus Therapeutic Range: 3-12 ng/mL (The goal level is based on clinical context). Assayed utilizing [employer] Chemiluminescent technology. ??Values obtained using different assay methods cannot be used interchangeably. Blood VENOUS BLOOD / Unknown 03/23/2024 12:58 EDT 03/24/2024 18:55 EDT Provider Outr Resulting Lab CHEMISTRY & BLOOD GAS ORDERABLES [facility] [address] [place], [place] [address] documented in this encounter Visit Diagnoses Not on filedocumented in this encounter Care Teams Nonprofit Financial Controller Relationship Specialty Start Date End Date Urbano Denis DO [address] [place] [address] PCP - General 09/27/14 documented as of this encounter
--- OUTSIDE RECORDS SUMMARY | 2024-04-04 13:50 | XMS_ITS | Encounter Summary ---
Author Organization [facility] Address [address] [place] [address] Care Team Providers Care Tool And Die Maker/Designer Name Role Phone Urbano Denis DO Primary Care Provider +1- [phone] Encounter Details Date Type Department Care Team (Late st Contact Info) Description 09/10/2021 Lab Requisition [facility] Pathology & Laboratory Medicine - [facility] [address] [place] [address] Outr Resulting Lab, Provider Social History Tobacco [...] 12.1 See Note ng/mL 09/12/2021 13:59 EST [facility] Comment: NOTE: Therapeutic range is dependent on the clinical situation. Assayed utilizing [employer] Chemiluminescent technology. ??Values obtained using different assay methods cannot be used interchangeably. Blood VENOUS BLOOD / Unknown 09/10/2021 11:25 EST 09/11/2021 16:49 EST Provider Outr Resulting Lab CHEMISTRY & BLOOD GAS ORDERABLES [facility] [address] [place] [address] documented in this encounter Visit Diagnoses Not on filedocumented in this encounter Care Teams Tool And Die Maker/Designer Relationship Specialty Start Date End Date Urbano Denis DO [address] [place], [place] [id number] PCP - General 09/27/14 documented as of this encounter
--- OUTSIDE RECORDS SUMMARY | 2024-04-04 13:50 | XMS_ITS | Encounter Summary ---
Author Organization [facility] Address [address] [place] [address] Care Team Providers Care Insurance Account Assistant Name Role Phone Urbano Denis DO Primary Care Provider +1- [phone] Encounter Details Date Type Department Care Team (Late st Contact Info) Description 06/19/2023 Lab Requisition [facility] Pathology & Laboratory Medicine - [facility] [address] [place] [address] Outr Resulting Lab, Provider Social History Tobacco [...] 9.5 See Note ng/mL 06/20/2023 12:46 EST [facility] Comment: NOTE: Tacrolimus Therapeutic Range: 3-12 ng/mL (The goal level is based on clinical context). Assayed utilizing [employer] Chemiluminescent technology. ??Values obtained using different assay methods cannot be used interchangeably. Blood VENOUS BLOOD / Unknown 06/19/2023 11:55 EST 06/19/2023 17:30 EST Provider Outr Resulting Lab CHEMISTRY & BLOOD GAS ORDERABLES Performing Organization Address City/State/[facility] Co de Phone Number [facility] [address] [place] [address] documented in this encounter Visit Diagnoses Not on filedocumented in this encounter Care Teams Insurance Account Assistant Relationship Specialty Start Date End Date Urbano Denis DO [address] [place] [address] PCP - General 09/27/14 documented as of this encounter
--- OUTSIDE RECORDS SUMMARY | 2024-04-04 13:50 | XMS_ITS | Encounter Summary ---
Author Organization [facility] Address [address] [place] [address] Care Team Providers Care Miniature Set Builder Name Role Phone Urbano Denis DO Primary Care Provider +1- [phone] Encounter Details Date Type Department Care Team (Late st Contact Info) Description 06/17/2019 Lab Requisition [facility] Pathology & Laboratory Medicine - [address] [address] Unknown, Provider, Social History Tobacco Use Types [...] 8.7 See Note ng/mL 06/18/2019 12:12 EST [facility] Comment: NOTE: Therapeutic range is dependent on the clinical situation. Assayed utilizing [employer] Chemiluminescent technology. ??Values obtained using different assay methohds cannot be used interchangeably. Blood VENOUS BLOOD / Unknown 06/17/2019 11:30 EST 06/17/2019 22:31 EST Provider Unknown CHEMISTRY & BLOOD GA S ORDERABLES Performing Organization Address City/State/[facility] Co de Phone Number [facility] [address] [place] [address] documented in this encounter Visit Diagnoses Not on filedocumented in this encounter Care Teams Miniature Set Builder Relationship Specialty Start Date End Date Urbano Denis DO [address] [place], [place] [address] PCP - General 09/27/14 documented as of this encounter
--- OUTSIDE RECORDS SUMMARY | 2024-04-04 13:50 | XMS_ITS | Encounter Summary ---
Author Organization [facility] Address [address] [place] [address] Care Team Providers Care American Sign Language Teacher Name Role Phone Urbano Denis DO Primary Care Provider +1- [phone] Reason for Visit * Reason Onset Date Comments Paperwork request 03/29/2015 Encounter Details Date Type Department Care Team (Late st Contact Info) Description 03/29/2015 Telephone [facility] Nephrology - [address] [id number] Arianna Richardson MD [address] [place] [address], [address] [place] [address] Paperwork request Social History Tobacco [...] the pt's Txp coordinator, Ruchi Valles, at [facility]. Provided phone number: [phone]. * Telephone Encounter - Brunilda Pinon - 03/29/2015 1535 EDT Faxed office note from Dr. Lewis on 01/04/15. LMOM asking pt to clarify the department or person at the [facility]. Also asked for a phone number or fax number. * Telephone Encounter - Brunilda Pinon - 03/29/2015 1116 EDT Caller wants to be sure that the pt's last visit note from Dr. Lewis have been sent to the pt's PCP and [facility]. documented in this encounter Plan of Treatment Not on file documented as of this encounter Visit Diagnoses Not on filedocumented in this encounter Care Teams American Sign Language Teacher Relationship Specialty Start Date End Date Urbano Denis DO [address] [place] [address] PCP - General 09/27/14 documented as of this encounter
--- OUTSIDE RECORDS SUMMARY | 2024-04-04 13:50 | XMS_ITS | Encounter Summary ---
Author Organization [facility] Address [address] [place] [address] Care Team Providers Care Press Manager Name Role Phone Urbano Denis DO Primary Care Provider +1- [phone] Encounter Details Date Type Department Care Team (Late st Contact Info) Description 08/20/2023 Lab Requisition [facility] Pathology & Laboratory Medicine - [facility] [address] [place] [address] Outr Resulting Lab, Provider Social History Tobacco [...] 14.4 See Note mg/dL 08/21/2023 8:58 EST [facility] Comment: NOTE: Reference range has not been established for calcium concentration in random urine specimens. Urine URINE / Unknown 08/20/2023 1 4:50 EST 08/20/2023 21:23 EST Provider Outr Resulting Lab URINALYSIS O RDERABLES Performing Organization Address [facility] Co de Phone Number [facility] [address] [place] [address] * MAGNESIUM,URINE RANDOM (08/20/2023 14:50 EST) Magnesium, Urine 5.0 See Note mg/dL 08/21/2023 9:00 EST [facility] Comment: NOTE: Reference range has not been established for magnesium concentration in random urine specimens. Urine URINE / Unknown 08/20/2023 1 4:50 EST 08/20/2023 21:23 EST Provider Outr Resulting Lab URINALYSIS O RDERABLES Performing Organization Address City/[facility]/ZIP Co de Phone Number [facility] [address] [place] [address] * PHOSPHORUS, URINE RANDOM (08/20/2023 14:50 EST) Phosphorous, Urine 28.9 See Note mg/dL 08/21/2023 8:58 EST [facility] Comment: NOTE: Reference range has not been established for phosporous concentration in random urine specimens. Urine URINE / Unknown 08/20/2023 1 4:50 EST 08/20/2023 21:23 EST Provider Outr Resulting Lab URINALYSIS O RDERABLES Performing Organization Address City/State/[facility] Co de Phone Number [facility] [address] [place] [address] documented in this encounter Visit Diagnoses Not on filedocumented in this encounter Care Teams Press Manager Relationship Specialty Start Date End Date Urbano Denis DO [address] [place] [address] PCP - General 09/27/14 documented as of this encounter
--- OUTSIDE RECORDS SUMMARY | 2024-04-04 13:50 | XMS_ITS | Encounter Summary ---
Author Organization [facility] Address [address] [place] [address] Care Team Providers Care Wax Engraver Name Role Phone Urbano Denis DO Primary Care Provider +1- [phone] Encounter Details Date Type Department Care Team (Latest Contact Info) Description 09/12/2015 7:20 EST - 09/12/2015 23:59 [facility] Hospital Encounter [address] [address] Unknown, Provider, Discharge Disposition: Home or Self [...] Code Departure Means Destination Home or Self [facility] documented in this encounter Plan of Treatment Not on file documented as of this encounter Visit Diagnoses Not on filedocumented in this encounter Care Teams Wax Engraver Relationship Specialty Start Date End Date Urbano Denis DO [address] [place] [address] PCP - General 09/27/14 documented as of this encounter
--- OUTSIDE RECORDS SUMMARY | 2024-04-04 13:50 | XMS_ITS | Encounter Summary ---
Author Organization [facility] Address [address] [place] [address] Care Team Providers Care Paper Tester Name Role Phone Adeel Urbano Kessler DO Primary Care Provider +1- [phone] Encounter Details Date Type Department Care Team (Late st Contact Info) Description 12/01/2014 Orders Only [facility] Nephrology - [address] [id number] Liu Adams MD Social History Tobacco Use [...] documented as of this encounter Care Teams Paper Tester Relationship Specialty Start Date End Date Urbano Denis DO [address] [place] [address] PCP - General 09/27/14 documented as of this encounter
--- OUTSIDE RECORDS SUMMARY | 2024-04-04 13:50 | XMS_ITS | Encounter Summary ---
Author Organization [facility] Address [address] [place] [address] Care Team Providers Care Regional Ehs Manager Name Role Phone Urbano Denis DO Primary Care Provider +1- [phone] Encounter Details Date Type Department Care Team (Late st Contact Info) Description 03/26/2023 Lab Requisition [facility] Pathology & Laboratory Medicine - [facility] [address] [place] [address] Outr Resulting Lab, Provider Social History Tobacco [...] 15.5 See Note mg/dL 03/27/2023 9:[address] [facility] Comment: NOTE: Reference range has not been established for calcium concentration in random urine specimens. Urine URINE / Unknown 03/26/2023 1 1:35 EDT 03/26/2023 21:27 EDT Provider Outr Resulting Lab URINALYSIS O RDERABLES Performing Organization Address [facility] Co de Phone Number [facility] [address] [place] [address] * MAGNESIUM,URINE RANDOM (03/26/2023 11:35 EDT) Magnesium, Urine 5.8 See Note mg/dL 03/27/2023 9:[address] [facility] Comment: NOTE: Reference range has not been established for magnesium concentration in random urine specimens. Urine URINE / Unknown 03/26/2023 1 1:35 EDT 03/26/2023 21:27 EDT Provider Outr Resulting Lab URINALYSIS O RDERABLES Performing Organization Address City/[facility]/ZIP Co de Phone Number [facility] [address] [place] [address] * PHOSPHORUS, URINE RANDOM (03/26/2023 11:35 EDT) Phosphorous, Urine 29.4 See Note mg/dL 03/27/2023 9:[address] [facility] Comment: NOTE: Reference range has not been established for phosporous concentration in random urine specimens. Urine URINE / Unknown 03/26/2023 1 1:35 EDT 03/26/2023 21:27 EDT Provider Outr Resulting Lab URINALYSIS O RDERABLES Performing Organization Address City/State/[facility] Co de Phone Number [facility] [address] [place] [address] documented in this encounter Visit Diagnoses Not on filedocumented in this encounter Care Teams Regional Ehs Manager Relationship Specialty Start Date End Date Urbano Denis DO [address] [place] [address] PCP - General 09/27/14 documented as of this encounter
--- OUTSIDE RECORDS SUMMARY | 2024-04-04 13:50 | XMS_ITS | Encounter Summary ---
Author Organization [facility] Address [address] [place] [address] Care Team Providers Care Resistance Brazer Name Role Phone Urbano Denis DO Primary Care Provider +1- [phone] Reason for Visit * Reason Onset Date Comments Medications Refill 12/05/2014 Encounter Details Date Type Department Care Team (Late st Contact Info) Description 12/05/2014 Refill [facility] Transplant - [address] [place] [address] [place], [place] [id number] Que Lewis MD [address] [address] Medications Refill Social History Tobacco [...] documented as of this encounter Care Teams Resistance Brazer Relationship Specialty Start Date End Date Urbano Denis DO [address] [place] [address] PCP - General 09/27/14 documented as of this encounter
--- OUTSIDE RECORDS SUMMARY | 2024-04-04 13:50 | XMS_ITS | Encounter Summary ---
Author Organization [facility] Address [address] [place] [address] Care Team Providers Care Armature Repairer Name Role Phone Urbano Denis DO Primary Care Provider +1- [phone] Encounter Details Date Type Department Care Team (Late st Contact Info) Description 11/10/2014 Orders Only [facility] Nephrology - [address] [address] Que Lewis MD [address] [place] [address] Social History Tobacco Use Types Packs/Day [...] documented as of this encounter Care Teams Armature Repairer Relationship Specialty Start Date End Date Urbano Denis DO [address] [place] [address] PCP - General 09/27/14 documented as of this encounter
--- OUTSIDE RECORDS SUMMARY | 2024-04-04 13:50 | XMS_ITS | Encounter Summary ---
Author Organization [facility] Address [address] [place] [address] Care Team Providers Care Dog Behaviorist Name Role Phone Urbano Denis DO Primary Care Provider +1- [phone] Encounter Details Date Type Department Care Team (Late st Contact Info) Description 09/12/2020 Lab Requisition [facility] Pathology & Laboratory Medicine - [facility] [address] [place] [address] Outr Resulting Lab, Provider Social History Tobacco [...] 14.6 See Note mg/dL 09/13/2020 10:38 EST [facility] Comment: NOTE: Reference range has not been established for calcium concentration in random urine specimens. Urine URINE SPECIMEN COLLECTION, CLEAN CATCH / Unknown 09/12/2020 11:08 EST 09/12/2020 15:47 EST Provider Outr Resulting Lab URINALYSIS O RDERABLES Performing Organization Address [facility] Co de Phone Number [facility] [address] [place] [address] * MAGNESIUM,URINE RANDOM (09/12/2020 11:08 EST) Magnesium, Urine 3.6 See Note mg/dL 09/13/2020 10:41 EST [facility] Comment: NOTE: Reference range has not been established for magnesium concentration in random urine specimens. Urine URINE SPECIMEN COLLECTION, CLEAN CATCH / Unknown 09/12/2020 11:08 EST 09/12/2020 15:47 EST Provider Outr Resulting Lab URINALYSIS O RDERABLES Performing Organization Address City/[facility]/ZIP Co de Phone Number [facility] [address] [place] [address] * PHOSPHOROUS, URINE RANDOM (09/12/2020 11:08 EST) Phosphorous, Urine 45.4 See Note mg/dL 09/13/2020 10:38 EST [facility] Comment: NOTE: Reference range has not been established for phosporous concentration in random urine specimens. Urine URINE SPECIMEN COLLECTION, CLEAN CATCH / Unknown 09/12/2020 11:08 EST 09/12/2020 15:47 EST Provider Outr Resulting Lab URINALYSIS O RDERABLES Performing Organization Address City/State/[facility] Co de Phone Number [facility] [address] [place] [address] documented in this encounter Visit Diagnoses Not on filedocumented in this encounter Care Teams Dog Behaviorist Relationship Specialty Start Date End Date Urbano Denis DO [address] [place] [address] PCP - General 09/27/14 documented as of this encounter
--- OUTSIDE RECORDS SUMMARY | 2024-04-04 13:50 | XMS_ITS | Encounter Summary ---
Author Organization [facility] Address [address] [place] [address] Care Team Providers Care Beaming Inspector Name Role Phone Urbano Denis DO Primary Care Provider +1- [phone] Encounter Details Date Type Department Care Team (Late st Contact Info) Description 01/10/2020 Lab Requisition [facility] Pathology & Laboratory Medicine - [address] [address] Outr Resulting Lab, Provider Social History Tobacco [...] 7.0 See Note ng/mL 01/11/2020 14:[address] [facility] Comment: NOTE: Therapeutic range is dependent on the clinical situation. Assayed utilizing [employer] Chemiluminescent technology. ??Values obtained using different assay methods cannot be used interchangeably. Blood VENOUS BLOOD / Unknown 01/10/2020 8:45 EDT 01/10/2020 17:09 EDT Provider Outr Resulting Lab CHEMISTRY & BLOOD GAS ORDERABLES [facility] [address] [place] [address] documented in this encounter Visit Diagnoses Not on filedocumented in this encounter Care Teams Beaming Inspector Relationship Specialty Start Date End Date Urbano Denis DO [address] [place], [place] [id number] PCP - General 09/27/14 documented as of this encounter
--- OUTSIDE RECORDS SUMMARY | 2024-04-04 13:50 | XMS_ITS | Encounter Summary ---
Author Organization [facility] Address [address] [place] [address] Care Team Providers Care Associate Oracle Retail Name Role Phone Urbano Denis DO Primary Care Provider +1- [phone] Encounter Details Date Type Department Care Team (Late st Contact Info) Description 09/12/2022 Lab Requisition [facility] Pathology & Laboratory Medicine - [facility] [address] [place] [address] Outr Resulting Lab, Provider Social History Tobacco [...] 19 - 88 pg/mL 09/12/2022 22:37 EST [facility] Blood VENOUS BLOOD / Unknown 09/12/2022 14:11 EST 09/12/2022 21:45 EST Provider Outr Resulting Lab CHEMISTRY & BLOOD GAS ORDERABLES Performing Organization Address [facility] Co de Phone Number [facility] [address] [place] [address] * TACROLIMUS (FK506) (09/12/2022 14:11 EST) Tacrolimus 14.2 See Note ng/mL 09/13/2022 12:32 EST [facility] Comment: NOTE: Tacrolimus Therapeutic Range: 3-12 ng/mL (The goal level is based on clinical context). Assayed utilizing [employer] Chemiluminescent technology. ??Values obtained using different assay methods cannot be used interchangeably. Blood VENOUS BLOOD / Unknown 09/12/2022 14:11 EST 09/12/2022 21:45 EST Provider Outr Resulting Lab CHEMISTRY & BLOOD GAS ORDERABLES Performing Organization Address City/[facility] Co de Phone Number [facility] [address] [place] [address] documented in this encounter Visit Diagnoses Not on filedocumented in this encounter Care Teams Associate [employer] Relationship Specialty Start Date End Date Urbano Denis DO [address] [place], [place] [address] PCP - General 09/27/14 documented as of this encounter
--- OUTSIDE RECORDS SUMMARY | 2024-04-04 13:50 | XMS_ITS | Encounter Summary ---
Author Organization [facility] Address [address] [place] [address] Care Team Providers Care Web Systems Developer Name Role Phone Urbano Denis DO Primary Care Provider +1- [phone] Encounter Details Date Type Department Care Team (Late st Contact Info) Description 07/15/2023 Lab Requisition [facility] Pathology & Laboratory Medicine - [facility] [address] [place] [address] Outr Resulting Lab, Provider Social History Tobacco [...] 2.8 - 5.3 pg/mL 07/15/2023 22:40 EST [facility] Blood VENOUS BLOOD / Unknown 07/15/2023 13:08 EST 07/15/2023 22:09 EST Provider Outr Resulting Lab CHEMISTRY & BLOOD GAS ORDERABLES [facility] [address] [place] [address] documented in this encounter Visit Diagnoses Not on filedocumented in this encounter Care Teams Web Systems Developer Relationship Specialty Start Date End Date Urbano Denis DO [address] [place] [address] PCP - General 09/27/14 documented as of this encounter
--- OUTSIDE RECORDS SUMMARY | 2024-04-04 13:50 | XMS_ITS | Encounter Summary ---
Author Organization [facility] Address [address] [place] [address] Care Team Providers Care Cadd Technician Name Role Phone Urbano Denis DO Primary Care Provider +1- [phone] Encounter Details Date Type Department Care Team (Late st Contact Info) Description 11/09/2014 Abstract [facility] Nephrology - [address] [place], [place] [address] Que Lewis MD [address] [place] [phone] Social History Tobacco Use Types Packs/Day [...] & PF4 O RDERABLES Performing Organization Address City/[facility]/ZIP Co de Phone Number [facility] [...] on filedocumented in this encounter Care Teams Cadd Technician Relationship Specialty Start Date End Date Urbano Denis DO [address] [place] [address] PCP - General 09/27/14 documented as of this encounter
--- OUTSIDE RECORDS SUMMARY | 2024-04-04 13:50 | XMS_ITS | Referral Summary ---
Author Organization [facility] Address [address] [place] [address] Care Team Providers Care Ironworker Apprentice Shop Name Role Phone Urbano Denis DO Primary Care Provider +1- [phone] Encounters Date Type Department Care Team Description 03/24/2024 Lab Requisition [facility] Pathology & Laboratory [address] [address] Outr Resulting Lab, Provider 02/14/2024 Lab Requisition [facility] Pathology & Laboratory [address] [address] Outr Resulting Lab, Provider from Last 3 Months Allergies No known active allergies Medications Medication [...] kidney biopsy 2014 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) Overview: echo 09/17: ef 40%, concentric LVH Hyperparathyroidism, secondary renal (HCC-CMS) Overview: ICD10 Update Auto Replacement 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) Overview: dx 2011, - retinopathy, - neuropathy ICD10 Update Auto Replacement Chronic kidney disease, stage V (HCC-CMS) Social History Tobacco Use Types Packs/Day Years [...] 1201 EDT Temperature 36 ??C (96.8 ??F) 10/17/201428 EDT Respiratory Rate 16 10/17/2014527 EDT Oxygen [...] 10/16/2014 Plan of Treatment Not on file Procedures Procedure Name Priority Date/Time Associated Diagnosis Comments TACROLIMUS (FK506) Routine 03/23/2024 12 :58 EDT TACROLIMUS (FK506) Routine 02/14/2024 11 :12 EDT from Last 3 Months Results * TACROLIMUS (FK506) (03/23/2024 12:58 EDT) Only the most recent of2 resultswithin the time period is included. Tacrolimus 9.0 See Note ng/mL 03/25/2024 14:32 EDT [facility] Comment: NOTE: Tacrolimus Therapeutic Range: 3-12 ng/mL (The goal level is based on clinical context). Assayed utilizing [employer] Chemiluminescent technology. ??Values obtained using different assay methods cannot be used interchangeably. Blood VENOUS BLOOD / Unknown 03/23/2024 12:58 EDT 03/24/2024 18:55 EDT Provider Outr Resulting Lab CHEMISTRY & BLOOD GAS ORDERABLES [facility] [address] [place] [address] from Last 3 Months Advance Directives For more information, please contact: [phone] * Full Code (Latest Code Status on [...] TIME OF CONSENT IN PPR Care Teams Ironworker Apprentice Shop Relationship Specialty Start Date End Date Urbano Denis DO [address] [place] [address] PCP - General 09/27/14
--- OUTSIDE RECORDS SUMMARY | 2024-04-04 13:50 | XMS_ITS | Encounter Summary ---
Author Organization [facility] Address [address] [place] [address] Care Team Providers Care Tank Truck Milk Receiver Name Role Phone Urbano Denis DO Primary Care Provider +1- [phone] Encounter Details Date Type Department Care Team (Late st Contact Info) Description 06/21/2020 Lab Requisition [facility] Pathology & Laboratory Medicine - [address] [address] Outr Resulting Lab, Provider Social History Tobacco [...] 11.6 See Note ng/mL 06/22/2020 13:51 EST [facility] Comment: NOTE: Therapeutic range is dependent on the clinical situation. Assayed utilizing [employer] Chemiluminescent technology. ??Values obtained using different assay methods cannot be used interchangeably. Blood VENOUS BLOOD / Unknown 06/21/2020 11:25 EST 06/21/2020 17:09 EST Provider Outr Resulting Lab CHEMISTRY & BLOOD GAS ORDERABLES [facility] [address] [place] [address] documented in this encounter Visit Diagnoses Not on filedocumented in this encounter Care Teams Tank Truck Milk Receiver Relationship Specialty Start Date End Date Urbano Denis DO [address] [place] [address] PCP - General 09/27/14 documented as of this encounter
--- OUTSIDE RECORDS SUMMARY | 2024-04-04 13:50 | XMS_ITS | Encounter Summary ---
Author Organization [facility] Address [address] [place] [address] Care Team Providers Care Gage Maker Name Role Phone Urbano Denis DO Primary Care Provider +1- [phone] Encounter Details Date Type Department Care Team (Late st Contact Info) Description 09/12/2020 Lab Requisition [facility] Pathology & Laboratory Medicine - [facility] [address] [place] [address] Outr Resulting Lab, Provider Social History Tobacco [...] 19 - 88 pg/mL 09/13/2020 10:21 EST [facility] Blood VENOUS BLOOD / Unknown 09/12/2020 11:08 EST 09/12/2020 15:46 EST Provider Outr Resulting Lab CHEMISTRY & BLOOD GAS ORDERABLES Performing Organization Address [facility] Co de Phone Number [facility] [address] [place] [address] * TACROLIMUS (FK506) (09/12/2020 11:08 EST) Tacrolimus 15.2 See Note ng/mL 09/13/2020 14:02 EST [facility] Comment: NOTE: Therapeutic range is dependent on the clinical situation. Assayed utilizing [employer] Chemiluminescent technology. ??Values obtained using different assay methods cannot be used interchangeably. Blood VENOUS BLOOD / Unknown 09/12/2020 11:08 EST 09/12/2020 15:47 EST Provider Outr Resulting Lab CHEMISTRY & BLOOD GAS ORDERABLES Performing Organization Address [facility] Co de Phone Number [facility] [address] [place] [address] documented in this encounter Visit Diagnoses Not on filedocumented in this encounter Care Teams Gage Maker Relationship Specialty Start Date End Date Urbano Denis DO [address] [place] [address] PCP - General 09/27/14 documented as of this encounter
--- OUTSIDE RECORDS SUMMARY | 2024-04-04 13:50 | XMS_ITS | Encounter Summary ---
Author Organization [facility] Address [address] [place] [address] Care Team Providers Care Fish Peddler Name Role Phone Urbano Denis DO Primary Care Provider +1- [phone] Encounter Details Date Type Department Care Team (Late st Contact Info) Description 11/12/2023 Lab Requisition [facility] Pathology & Laboratory Medicine - [facility] [address] [place] [address] Outr Resulting Lab, Provider Social History Tobacco [...] 6.2 See Note ng/mL 11/13/2023 11:28 EDT [facility] Comment: NOTE: Tacrolimus Therapeutic Range: 3-12 ng/mL (The goal level is based on clinical context). Assayed utilizing [employer] Chemiluminescent technology. ??Values obtained using different assay methods cannot be used interchangeably. Blood VENOUS BLOOD / Unknown 11/12/2023 11:16 EDT 11/12/2023 18:30 EDT Provider Outr Resulting Lab CHEMISTRY & BLOOD GAS ORDERABLES [facility] [address] [place], [place] [address] documented in this encounter Visit Diagnoses Not on filedocumented in this encounter Care Teams Fish Peddler Relationship Specialty Start Date End Date Urbano Denis DO [address] [place] [address] PCP - General 09/27/14 documented as of this encounter
--- OUTSIDE RECORDS SUMMARY | 2024-04-04 13:50 | XMS_ITS | Encounter Summary ---
Author Organization [facility] Address [address] [place] [address] Care Team Providers Care Solar Site Assessment Specialist Name Role Phone Urbano Denis DO Primary Care Provider +1- [phone] Encounter Details Date Type Department Care Team (Late st Contact Info) Description 03/26/2023 Lab Requisition [facility] Pathology & Laboratory Medicine - [facility] [address] [place] [address] Outr Resulting Lab, Provider Social History Tobacco [...] 19 - 88 pg/mL 03/26/2023 23:02 EDT [facility] Blood VENOUS BLOOD / Unknown 03/26/2023 11:30 EDT 03/26/2023 21:29 EDT Provider Outr Resulting Lab CHEMISTRY & BLOOD GAS ORDERABLES Performing Organization Address City/[facility] Co de Phone Number [facility] [address] [place] [address] * TACROLIMUS (FK506) (03/26/2023 11:30 EDT) Tacrolimus 7.6 See Note ng/mL 03/27/2023 13:40 EDT [facility] Comment: NOTE: Tacrolimus Therapeutic Range: 3-12 ng/mL (The goal level is based on clinical context). Assayed utilizing [employer] Chemiluminescent technology. ??Values obtained using different assay methods cannot be used interchangeably. Blood VENOUS BLOOD / Unknown 03/26/2023 11:30 EDT 03/26/2023 21:38 EDT Provider Outr Resulting Lab CHEMISTRY & BLOOD GAS ORDERABLES Performing Organization Address City/[facility] Co de Phone Number [facility] [address] [place] [address] documented in this encounter Visit Diagnoses Not on filedocumented in this encounter Care Teams Solar Site Assessment Specialist Relationship Specialty Start Date End Date Urbano Denis DO [address] [place] [address] PCP - General 09/27/14 documented as of this encounter
--- OUTSIDE RECORDS SUMMARY | 2024-04-04 13:50 | XMS_ITS | Encounter Summary ---
Author Organization [facility] Address [address] [place] [address] Care Team Providers Care Ribbing Machine Operator Name Role Phone Urbano Denis DO Primary Care Provider +1- [phone] Encounter Details Date Type Department Care Team (Late st Contact Info) Description 09/12/2015 Results Only [facility] [phone] Que Momin, DO [address] [facility] [address] DALY [address] [place] [address] Social History Tobacco Use Types Packs/Day [...] reading/interpret ing unformatted reports. Name: ? ETHEL AKISN ? Accession #: ? [id number] ? : ? 1950 (Age: 65) ??M [...] Reyes 09/13/2015 8:20 AM End of Report [facility] 09/12/2015 17:2 7 EST 09/12/2015 17:27 EST Que Momin DO PATHOLOGY ORDER IGNACIO [facility] [address] [place] [address] documented in this encounter Visit Diagnoses Not on filedocumented in this encounter Care Teams Ribbing Machine Operator Relationship Specialty Start Date End Date Urbano Denis DO [address] [place] [address] PCP - General 09/27/14 documented as of this encounter
--- OUTSIDE RECORDS SUMMARY | 2024-04-04 13:50 | XMS_ITS | Encounter Summary ---
Author Organization [facility] Address [address] [place] [address] Care Team Providers Care Ammonia Worker Name Role Phone Urbano Denis DO Primary Care Provider +1- [phone] Encounter Details Date Type Department Care Team (Late st Contact Info) Description 12/24/2021 Lab Requisition [facility] Pathology & Laboratory Medicine - [facility] [address] [place] [address] Outr Resulting Lab, Provider Social History Tobacco [...] 5.7 See Note ng/mL 12/25/2021 13:39 EDT [facility] Comment: NOTE: Tacrolimus Therapeutic Range: 3-12 ng/mL (The goal level is based on clinical context). Assayed utilizing [employer] Chemiluminescent technology. ??Values obtained using different assay methods cannot be used interchangeably. Blood VENOUS BLOOD / Unknown 12/24/2021 11:50 EDT 12/24/2021 22:01 EDT Provider Outr Resulting Lab CHEMISTRY & BLOOD GAS ORDERABLES [facility] [address] [place] [address] documented in this encounter Visit Diagnoses Not on filedocumented in this encounter Care Teams Ammonia Worker Relationship Specialty Start Date End Date Urbano Denis DO [address] [place] [address] PCP - General 09/27/14 documented as of this encounter
--- OUTSIDE RECORDS SUMMARY | 2024-04-04 13:50 | XMS_ITS | Encounter Summary ---
Author Organization [facility] Address [address] [place] [address] Care Team Providers Care Grocery Clerk Selling Name Role Phone Urbano Denis DO Primary Care Provider +1- [phone] Reason for Visit * Reason Onset Date Comments Appointment Related 11/21/2014 Encounter Details Date Type Department Care Team ([facility] st Contact Info) Description 11/21/2014 Telephone [facility] Nephrology - [address] [address] Que Perez MD [address] [phone] Appointment Related Social History Tobacco [...] that they have appt with transplant in [place] for December 21, they have family in [place]. fyi to dr perez. * Telephone Encounter [...] in this encounter Care Teams Grocery Clerk Selling Relationship Specialty Start Date End Date Urbano Denis DO [address] [place] [address] PCP - General 09/27/14 documented as of this encounter
--- OUTSIDE RECORDS SUMMARY | 2024-04-04 13:50 | XMS_ITS | Encounter Summary ---
Author Organization [facility] Address [address] [place] [address] Care Team Providers Care Materials Manager Name Role Phone Urbano Denis DO Primary Care Provider +1- [phone] Encounter Details Date Type Department Care Team (Late st Contact Info) Description 01/03/2015 Abstract [facility] Nephrology - [address] [place], [place] [address] Que Lewis MD [address] [place] [phone] Social History Tobacco Use Types Packs/Day [...] Results * HGB (12/27/2014) Hemoglobin, External 12.3 [facility] Blood specimen (specimen) 12/27/2014 Que Lewis MD HEMATOLOGY & PF4 O RDERABLES Performing Organization Address City/[facility] [address]/ZIP Co de Phone Number [facility] * NEPHROLOGY PROFILE (INCLUDES BUN, CREATININE, CALCULATED GFR, ELECTROLYTES, CALCIUM, PHOSPHORUS, ALBUMIN) (12/27/2014) Phosphorus, External 5.3 [facility] Albumin, External 3.2 [facility] BUN, External 115 [facility] Chloride, External 104 [facility] Creatinine, External 5.4 [facility] Potassium, External 5.2 [facility] GFR, Calculated, External 10.68 [facility] Calculated Calcium, External [facility] Calcium, External 8.9 [facility] Sodium, External 141 [facility] CO2, External 26.6 [facility] Blood specimen (specimen) 12/27/2014 Que Lewis MD PACKAGES & DNA PRO BE ORDERABLES Performing Organization Address City/[facility] [address]/ZIP Co de Phone Number [facility] * PTH INTACT (12/27/2014) PTH, External [facility] Blood specimen (specimen) 12/27/2014 Que Lewis MD CHEMISTRY & BLOOD GAS ORDERABLES [facility] documented in this encounter Visit Diagnoses Not on filedocumented in this encounter Care Teams Materials Manager Relationship Specialty Start Date End Date Urbano Denis DO [address] [place] [address] PCP - General 09/27/14 documented as of this encounter
--- OUTSIDE RECORDS SUMMARY | 2024-04-04 13:50 | XMS_ITS | Encounter Summary ---
Author Organization [facility] Address [address] [place] [address] Care Team Providers Care Filler Spreader Name Role Phone Urbano Denis DO Primary Care Provider +1- [phone] Encounter Details Date Type Department Care Team (Late st Contact Info) Description 12/15/2019 Lab Requisition [facility] Pathology & Laboratory Medicine - [address] [address] Outr Resulting Lab, Provider Social History Tobacco [...] 12.9 See Note ng/mL 12/16/2019 13:42 EDT [facility] Comment: NOTE: Therapeutic range is dependent on the clinical situation. Assayed utilizing [employer] Chemiluminescent technology. ??Values obtained using different assay methods cannot be used interchangeably. Blood VENOUS BLOOD / Unknown 12/15/2019 10:40 EDT 12/15/2019 16:55 EDT Provider Outr Resulting Lab CHEMISTRY & BLOOD GAS ORDERABLES [facility] [address] [place] [address] documented in this encounter Visit Diagnoses Not on filedocumented in this encounter Care Teams Filler Spreader Relationship Specialty Start Date End Date Urbano Denis DO [address] [place], [place] [id number] PCP - General 09/27/14 documented as of this encounter
--- OUTSIDE RECORDS SUMMARY | 2024-04-04 13:50 | XMS_ITS | Encounter Summary ---
Author Organization [facility] Address [address] [place] [address] Care Team Providers Care Roofer Applicator Name Role Phone Urbano Denis DO Primary Care Provider +1- [phone] Encounter Details Date Type Department Care Team (Late st Contact Info) Description 09/10/2021 Lab Requisition [facility] Pathology & Laboratory Medicine - [facility] [address] [place] [address] Outr Resulting Lab, Provider Social History Tobacco [...] 4.7 See Note mg/dL 09/12/2021 8:43 EST [facility] Comment: NOTE: Reference range has not been established for magnesium concentration in random urine specimens. Urine URINE SPECIMEN COLLECTION, CLEAN CATCH / Unknown 09/10/2021 10:55 EST 09/11/2021 16:49 EST Provider Outr Resulting Lab URINALYSIS O RDERABLES Performing Organization Address [facility] Co de Phone Number [facility] [address] [place] [address] * PHOSPHORUS, URINE RANDOM (09/10/2021 10:55 EST) Phosphorous, Urine 22.7 See Note mg/dL 09/12/2021 8:45 EST [facility] Comment: NOTE: Reference range has not been established for phosporous concentration in random urine specimens. Urine URINE SPECIMEN COLLECTION, CLEAN CATCH / Unknown 09/10/2021 10:55 EST 09/11/2021 16:49 EST Provider Outr Resulting Lab URINALYSIS O RDERABLES Performing Organization Address [facility] Co de Phone Number [facility] [address] [place] [address] documented in this encounter Visit Diagnoses Not on filedocumented in this encounter Care Teams Roofer Applicator Relationship Specialty Start Date End Date Urbano Denis DO [address] [place] [address] PCP - General 09/27/14 documented as of this encounter
--- OUTSIDE RECORDS SUMMARY | 2024-04-04 13:50 | XMS_ITS | Encounter Summary ---
Author Organization [facility] Address [address] [place] [address] Care Team Providers Care Release Of Information Clerk Name Role Phone Urbano Denis DO Primary Care Provider +1- [phone] Reason for Visit * Reason Onset Date Comments Medication Management 10/25/2014 Biopsy Results 10/25/2014 Encounter Details Date Type Department Care Team ([facility] st Contact Info) Description 10/25/2014 Telephone [facility] Nephrology - [address] [id number] Que Lewis MD [address] [phone] Medication Management; Biopsy Results Social [...] (Plavix) and follow-up with Dr Lewis in [place]. The biopsy is most consistent with diabetic [...] mouth added in this encounter Care Teams Release Of Information Clerk Relationship Specialty Start Date End Date Urbano Denis DO [address] [place] [address] PCP - General 09/27/14 documented as of this encounter
--- OUTSIDE RECORDS SUMMARY | 2024-04-04 13:50 | XMS_ITS | Encounter Summary ---
Author Organization [facility] Address [address] [place] [address] Care Team Providers Care Marble Finisher Name Role Phone Urbano Denis DO Primary Care Provider +1- [phone] Encounter Details Date Type Department Care Team (Late st Contact Info) Description 02/27/2021 Lab Requisition [facility] Pathology & Laboratory Medicine - [facility] [address] [place] [address] Outr Resulting Lab, Provider Social History Tobacco [...] 12.9 See Note ng/mL 02/28/2021 12:56 EDT [facility] Comment: NOTE: Therapeutic range is dependent on the clinical situation. Assayed utilizing [employer] Chemiluminescent technology. ??Values obtained using different assay methods cannot be used interchangeably. Blood VENOUS BLOOD / Unknown 02/26/2021 11:30 EDT 02/27/2021 15:57 EDT Provider Outr Resulting Lab CHEMISTRY & BLOOD GAS ORDERABLES Performing Organization Address City/State/[facility] Co de Phone Number [facility] [address] [place] [address] documented in this encounter Visit Diagnoses Not on filedocumented in this encounter Care Teams Marble Finisher Relationship Specialty Start Date End Date Urbano Denis DO [address] [place] [address] PCP - General 09/27/14 documented as of this encounter
--- OUTSIDE RECORDS SUMMARY | 2024-04-04 13:50 | XMS_ITS | Encounter Summary ---
Author Organization [facility] Address [address] [place] [address] Care Team Providers Care Prop Making Supervisor Name Role Phone Urbano Denis DO Primary Care Provider +1- [phone] Reason for Visit * Reason Onset Date Comments Appointment Related 02/22/2015 Encounter Details Date Type Department Care Team (Late st Contact Info) Description 02/22/2015 Telephone [facility] Nephrology - [address] [phone] Arianna Richardson MD [address] [place] [address], [address] [place] [address] Appointment Related Social History Tobacco [...] Pt NOS appt with Dr. Richardson in [facility] on 02/21/15. LMOM for pt to call back to rescheduled. Letter sent 02/22/15 documented in this encounter Plan of Treatment Not on file documented as of this encounter Visit Diagnoses Not on filedocumented in this encounter Care Teams Prop Making Supervisor Relationship Specialty Start Date End Date Urbano Denis DO [address] [place] [address] PCP - General 09/27/14 documented as of this encounter
--- OUTSIDE RECORDS SUMMARY | 2024-04-04 13:50 | XMS_ITS | Encounter Summary ---
Author Organization [facility] Address [address] [place] [address] Care Team Providers Care Art History Instructor Name Role Phone Urbano Denis DO Primary Care Provider +1- [phone] Encounter Details Date Type Department Care Team (Late st Contact Info) Description 01/30/2022 Lab Requisition [facility] Pathology & Laboratory Medicine - [facility] [address] [place] [address] Outr Resulting Lab, Provider Social History Tobacco [...] 13.4 See Note ng/mL 01/31/2022 13:56 EDT [facility] Comment: NOTE: Tacrolimus Therapeutic Range: 3-12 ng/mL (The goal level is based on clinical context). Assayed utilizing [employer] Chemiluminescent technology. ??Values obtained using different assay methods cannot be used interchangeably. Blood VENOUS BLOOD / Unknown 01/30/2022 10:49 EDT 01/30/2022 21:58 EDT Provider Outr Resulting Lab CHEMISTRY & BLOOD GAS ORDERABLES [facility] [address] [place] [address] documented in this encounter Visit Diagnoses Not on filedocumented in this encounter Care Teams Art History Instructor Relationship Specialty Start Date End Date Urbano Denis DO [address] [place] [address] PCP - General 09/27/14 documented as of this encounter
--- OUTSIDE RECORDS SUMMARY | 2024-04-04 13:50 | XMS_ITS | Encounter Summary ---
Author Organization [facility] Address [address] [place] [address] Care Team Providers Care Furniture Assembler And Installer Name Role Phone Urbano Denis DO Primary Care Provider +1- [phone] Encounter Details Date Type Department Care Team (Late st Contact Info) Description 02/14/2024 Lab Requisition [facility] Pathology & Laboratory Medicine - [facility] [address] [place] [address] Outr Resulting Lab, Provider Social History Tobacco [...] Date/Time Associated Diagnosis Comments TACROLIMUS (FK506) Routine 02/14/2024 11 :12 EDT documented in this encounter Results * TACROLIMUS (FK506) (02/14/2024 11:12 EDT) Tacrolimus 9.4 See Note ng/mL 02/16/2024 11:38 EDT [facility] Comment: NOTE: Tacrolimus Therapeutic Range: 3-12 ng/mL (The goal level is based on clinical context). Assayed utilizing [employer] Chemiluminescent technology. ??Values obtained using different assay methods cannot be used interchangeably. Blood VENOUS BLOOD / Unknown 02/14/2024 11:12 EDT 02/15/2024 17:46 EDT Provider Outr Resulting Lab CHEMISTRY & BLOOD GAS ORDERABLES [facility] [address] [place], [place] [address] documented in this encounter Visit Diagnoses Not on filedocumented in this encounter Care Teams Furniture Assembler And Installer Relationship Specialty Start Date End Date Urbano Denis DO [address] [place] [address] PCP - General 09/27/14 documented as of this encounter
--- OUTSIDE RECORDS SUMMARY | 2024-04-04 13:50 | XMS_ITS | Encounter Summary ---
Author Organization [facility] Address [address] [place] [address] Care Team Providers Care Vp Global Marketing Solutions Name Role Phone Urbano Denis DO Primary Care Provider +1- [phone] Reason for Visit * Reason Onset Date Comments Labs Only 10/18/2014 Encounter Details Date Type Department Care Team ([facility] st Contact Info) Description 10/18/2014 Telephone [facility] Nephrology - [facility] [address] [place], [place] [phone] Ginny Flores, RN [address] [place], [place] [phone] Labs Only Social History Tobacco Use Types [...] not written correctly and when sent to [place], the labs were not able to be drawn. Caller reports that the pt needs the labs done today and the orders needs to be sent to [facility] in [place], fax number: [phone]. [address] new orders and fax over. [...] He will have them done tomorrow in [facility]. Saw Dr. Geller, medicare specialist, today who wanted patient to check with [...] Results * HEMAGRAM (10/19/2014) HCT, External 37.1 [facility] MCH, External [facility] MCV, External [facility] MCHC, External [facility] Hemoglobin, External 12.1 [facility] WBC, External 8.78 [facility] RBC, External [facility] PLT, External 304 [facility] RDW-CV, External [facility] Blood specimen (specimen) 10/19/2014 Historical Provider HEMATOLOGY & PF4 ORDERABLES [facility] documented in this encounter Visit Diagnoses Diagnosis Chronic kidney disease, stage IV (severe) ([facility])- Primary Chronic kidney disease, Stage IV (severe) documented in this encounter Care Teams Vp Global Marketing Solutions Relationship Specialty Start Date End Date Urbano Denis DO [address] [place] [address] PCP - General 09/27/14 documented as of this encounter
--- OUTSIDE RECORDS SUMMARY | 2024-04-04 13:50 | XMS_ITS | Encounter Summary ---
Author Organization [facility] Address [address] [place] [address] Care Team Providers Care Food Safety Manager Name Role Phone Urbano Denis DO Primary Care Provider +1- [phone] Encounter Details Date Type Department Care Team (Late st Contact Info) Description 03/21/2020 Lab Requisition [facility] Pathology & Laboratory Medicine - [address] [address] Outr Resulting Lab, Provider Social History Tobacco [...] 11.6 See Note ng/mL 03/22/2020 13:28 EDT [facility] Comment: NOTE: Therapeutic range is dependent on the clinical situation. Assayed utilizing [employer] Chemiluminescent technology. ??Values obtained using different assay methods cannot be used interchangeably. Blood VENOUS BLOOD / Unknown 03/21/2020 14:20 EDT 03/21/2020 21:23 EDT Provider Outr Resulting Lab CHEMISTRY & BLOOD GAS ORDERABLES [facility] [address] [place] [address] documented in this encounter Visit Diagnoses Not on filedocumented in this encounter Care Teams Food Safety Manager Relationship Specialty Start Date End Date Urbano Denis DO [address] [place], [place] [id number] PCP - General 09/27/14 documented as of this encounter
--- OUTSIDE RECORDS SUMMARY | 2024-04-04 13:50 | XMS_ITS | Encounter Summary ---
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 As he hasn't undergone evaluation for home dialysis yet, in- center hemodialysis via a TDC would be needed. He would like to receive this care in [facility] as it is much closer for him. I have called [facility] to contact Dr. Franco regarding dialysis through his group, but have been instructed to discuss with Dr. Loya, the patient's previous paper cup machine tender, and am awaiting a return call. Hypertension [...] Loya regarding in-center and home dialysis in [facility]. 5. Return to clinic in 2 weeks if dialysis not started sooner. Que Lewis M.D. 01/12/2015 ADDENDUM: No change in symptoms. i did speak with Dr. Loya, and he arranged for insertion of TDC and starting dialysis. Nephrology care now transitioned to [facility]. documented in this encounter Plan of Treatment Not on file documented as of this encounter Visit Diagnoses Diagnosis Chronic glomerulonephritis in diseases classified elsewhere- Primary Chronic glomerulonephritis with other specified pathological lesion in kidney in diseases classified elsewhere Chronic kidney disease, stage V ([facility]) Chronic kidney disease, Stage V Type II [...] documented as of this encounter Care Teams Bank Vault Clerk Relationship Specialty Start Date End Date Urbano Denis DO [address] [place] [address] PCP - General 09/27/14 documented as of this encounter
--- OUTSIDE RECORDS SUMMARY | 2024-04-04 13:50 | XMS_ITS | Encounter Summary ---
Author Organization [facility] Address [address] [place] [address] Care Team Providers Care Video Technician Name Role Phone Urbano Denis DO Primary Care Provider +1- [phone] Encounter Details Date Type Department Care Team (Late st Contact Info) Description 04/05/2021 Lab Requisition [facility] Pathology & Laboratory Medicine - [facility] [address] [place] [address] Outr Resulting Lab, Provider Social History Tobacco [...] 5.9 See Note ng/mL 04/06/2021 13:51 EDT [facility] Comment: NOTE: Therapeutic range is dependent on the clinical situation. Assayed utilizing [employer] Chemiluminescent technology. ??Values obtained using different assay methods cannot be used interchangeably. Blood VENOUS BLOOD / Unknown 04/05/2021 7:05 EDT 04/05/2021 20:50 EDT Provider Outr Resulting Lab CHEMISTRY & BLOOD GAS ORDERABLES Performing Organization Address City/State/[place] Co de Phone Number [facility] [address] [place] [address] documented in this encounter Visit Diagnoses Not on filedocumented in this encounter Care Teams Video Technician Relationship Specialty Start Date End Date Urbano Denis DO [address] [place] [address] PCP - General 09/27/14 documented as of this encounter
--- OUTSIDE RECORDS SUMMARY | 2024-04-04 13:50 | XMS_ITS | Encounter Summary ---
Author Organization [facility] Address [address] [place] [address] Care Team Providers Care Product Introduction Manager Name Role Phone Urbano Denis DO Primary Care Provider +1- [phone] Encounter Details Date Type Department Care Team (Late st Contact Info) Description 11/09/2014 Abstract [facility] Nephrology - [address] [place] [address] [place], [place] [phone] Que Lewis MD [address] [place] [phone] Social History Tobacco Use Types Packs/Day [...] * PTH INTACT (11/08/2014) PTH, External 123 [facility] Blood specimen (specimen) 11/08/2014 Que Lewis MD CHEMISTRY & BLOOD GAS ORDERABLES [facility] documented in this encounter Visit Diagnoses Not on filedocumented in this encounter Care Teams Product Introduction Manager Relationship Specialty Start Date End Date Urbano Denis DO [address] [place] [address] PCP - General 09/27/14 documented as of this encounter
--- OUTSIDE RECORDS SUMMARY | 2024-04-04 13:50 | XMS_ITS | Encounter Summary ---
Author Organization [facility] Address [address] [place] [address] Care Team Providers Care Environmental Journalist Name Role Phone Urbano Denis DO Primary Care Provider +1- [phone] Encounter Details Date Type Department Care Team (Late st Contact Info) Description 02/23/2021 Lab Requisition [facility] Pathology & Laboratory Medicine - [facility] [address] [place] [address] Outr Resulting Lab, Provider Social History Tobacco [...] Priority Date/Time Associated Diagnosis Comments ZZCOVID-19 TEST [facility] PCR Today 02/22/2021 12:30 EDT COVID-19 TESTING Routine 02/22/2021 12:3 0 EDT documented in this encounter Results * COVID-19 TEST [facility] PCR (02/22/2021 12:30 EDT) Swab ENTIRE NASOPHARYNX / Unknown 02/22/2021 12:30 EDT 02/23/2021 21:35 EDT Provider Outr Resulting Lab MICROBIOLOGY - GENERAL ORDERABLES [facility] [address] [place] [address] * COVID-19 TESTING (02/22/2021 12:30 EDT) COVID-19 rt-PCR Result Negative Negative 02/24/2021 12:44 EDT [facility] Comment: This test [...] was performed using the ester SARS-CoV-2 assay ([employer] on the [employer] System Performing Lab [address] [facility] 02/24/2021 12:44 EDT [facility] Swab 02/22/2021 12:3 0 EDT 02/23/2021 21:35 EDT Provider Outr Resulting Lab MICROBIOLOGY - GENERAL ORDERABLES [facility] [address] [place] [address] documented in this encounter Visit Diagnoses Not on filedocumented in this encounter Care Teams Environmental Journalist Relationship Specialty Start Date End Date Urbano Denis DO [address] [place] [address] PCP - General 09/27/14 documented as of this encounter
--- OUTSIDE RECORDS SUMMARY | 2024-04-04 13:50 | XMS_ITS | Encounter Summary ---
Author Organization [facility] Address [address] [place] [address] Care Team Providers Care Shell Trim Tool Setter Name Role Phone Urbano Denis DO Primary Care Provider +1- [phone] Encounter Details Date Type Department Care Team (Late st Contact Info) Description 12/20/2019 Lab Requisition [facility] Pathology & Laboratory Medicine - [address] [address] Outr Resulting Lab, Provider Social History Tobacco [...] 11.8 See Note ng/mL 12/21/2019 13:29 EDT [facility] Comment: NOTE: Therapeutic range is dependent on the clinical situation. Assayed utilizing [employer] Chemiluminescent technology. ??Values obtained using different assay methods cannot be used interchangeably. Blood VENOUS BLOOD / Unknown 12/20/2019 7:25 EDT 12/20/2019 17:59 EDT Provider Outr Resulting Lab CHEMISTRY & BLOOD GAS ORDERABLES [facility] [address] [place] [address] documented in this encounter Visit Diagnoses Not on filedocumented in this encounter Care Teams Shell Trim Tool Setter Relationship Specialty Start Date End Date Urbano Denis DO [address] [place], [place] [id number] PCP - General 09/27/14 documented as of this encounter
--- OUTSIDE RECORDS SUMMARY | 2024-04-04 13:50 | XMS_ITS | Encounter Summary ---
Author Organization [facility] Address [address] [place] [address] Care Team Providers Care Solar Sales Advisor Name Role Phone Urbano Denis DO Primary Care Provider +1- [phone] Reason for Visit * Reason Comments Chronic Kidney Disease Encounter Details Date Type Department Care Team (Late st Contact Info) Description 11/23/2014 9:00 EDT Office Visit [facility] Nephrology [address] [phone] Que Lewis MD [address] [place] [phone] Chronic kidney disease, stage IV (severe) ([facility]) (Primary Dx); Unspecified essential hypertension Social [...] Que Lewis MD - 11/23/2014 0919 EDT [facility] Nephrology Clinic Note DATE OF SERVICE: [...] is scheduled for kidney transplant evaluation at [facility] in mid-December. He notes stable edema. Home [...] Diagnosis Chronic kidney disease, stage IV (severe) ([facility])- Primary Chronic kidney disease, Stage IV (severe) Unspecified essential hypertension documented in this encounter Discontinued Medications Medication Sig Discontinue Reason Start Date End Da te spironolactone (ALDACTONE) 25 mg tablet Take 1 Tab by mouth daily Reorder 10/06/2014 11/23/2014 hydrALAzine (APRESOLINE) 25 mg tablet Take 50 mg by mouth 2 times daily Reorder 11/23/2014 documented as of this encounter Care Teams Solar Sales Advisor Relationship Specialty Start Date End Date Urbano Denis DO [address] [place] [address] PCP - General 09/27/14 documented as of this encounter
--- OUTSIDE RECORDS SUMMARY | 2024-04-04 13:50 | XMS_ITS | Encounter Summary ---
Author Organization [facility] Address [address] [place] [address] Care Team Providers Care Vehicle Safety Inspector Name Role Phone Urbano Denis DO Primary Care Provider [phone]- [phone] Encounter Details Date Type Department Care Team (Late st Contact Info) Description 08/20/2023 Lab Requisition [facility] Pathology & Laboratory Medicine - [facility] [address] [place] [address] Outr Resulting Lab, Provider Social History Tobacco [...] 19 - 88 pg/mL 08/20/2023 22:26 EST [facility] Blood VENOUS BLOOD / Unknown 08/20/2023 14:56 EST 08/20/2023 21:23 EST Provider Outr Resulting Lab CHEMISTRY & BLOOD GAS ORDERABLES Performing Organization Address [facility] Co de Phone Number [facility] [address] [place] [address] * TACROLIMUS ([id number]) (08/20/2023 14:56 EST) Tacrolimus 4.4 See Note ng/mL 08/21/2023 11:40 EST [facility] Comment: NOTE: Tacrolimus Therapeutic Range: 3-12 ng/mL (The goal level is based on clinical context). Assayed utilizing [employer] Chemiluminescent technology. ??Values obtained using different assay methods cannot be used interchangeably. Blood VENOUS BLOOD / Unknown 08/20/2023 14:56 EST 08/20/2023 21:23 EST Provider Outr Resulting Lab CHEMISTRY & BLOOD GAS ORDERABLES Performing Organization Address [facility] Co de Phone Number [facility] [address] [place] [address] documented in this encounter Visit Diagnoses Not on filedocumented in this encounter Care Teams Vehicle Safety Inspector Relationship Specialty Start Date End Date Urbano Denis DO [address] [place], [place] [address] PCP - General 09/27/14 documented as of this encounter
--- OUTSIDE RECORDS SUMMARY | 2024-04-04 13:51 | XMS_ITS | Encounter Summary ---
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
--- OUTSIDE RECORDS SUMMARY | 2024-04-04 13:51 | XMS_ITS | Encounter Summary ---
Author Organization [facility] Address [address] [place] [address] Care Team Providers Care Manager Application Name Role Phone Urbano Denis DO Primary Care Provider [phone]- [phone] Reason for Visit * Reason Onset Date Comments Other 10/10/2014 Encounter Details Date Type Department Care Team ([facility] st Contact Info) Description 10/10/2014 Telephone [place] [facility] - [address] [id number] Que Lewis MD [address] [phone] Other Social History Tobacco Use Types Packs/Day Years Used Date Smoking Tobacco: Never Assessed Sex and Gender Information Value Date Recorded Sex Assigned at Not on file Gender Identity Not on file Sexual Orientation Not on file documented as of this encounter Miscellaneous Notes * Telephone Encounter - Radha Judge RN - 10/10/2014 1442 EDT Faxing labs from [facility], will be entered in [employer]. DONE * Telephone Encounter - Que Lewis MD - 10/10/2014 1415 EDT That looks better. Any sign of coags (pt/ptt) from Thursday? * Telephone Encounter - Magaly Garza - 10/10/[address] Lewis wanted patient to call with his BP: 146/52 documented in this encounter Plan of Treatment Not on file documented as of this encounter Visit Diagnoses Not on filedocumented in this encounter Care Teams Manager Application Relationship Specialty Start Date End Date Urbano Denis DO [address] [place] [address] PCP - General 09/27/14 documented as of this encounter
--- OUTSIDE RECORDS SUMMARY | 2024-04-04 13:51 | XMS_ITS | Encounter Summary ---
Author Organization [facility] [place] [address] Care Team Providers Care Manager Money Name Role Phone Urbano Jimenez DO Primary Care Provider [phone] Encounter Details Date Type Department Care Team (Late st Contact Info) Description 10/01/2023 Notes Only [place] [address] Anabella Bright Social History Tobacco Use Types [...] Bright - 10/01/2023 3:43 PM EDT Transplant Acls Specialist Note: Completed physician portion of J[employer] MAP form, obtained signature from Dr. Eagle, and emailed form back to Mara. She will file the application on her own. Will remain available for support as needed. documented in this encounter Plan of Treatment Upcoming Encounters Date Type Department Care Team (Late st Contact Info) Description 04/08/2024 1:40 PM EDT Office Visit Cardiology at [address] [phone] Jay Urban MD [facility] [place] [address] 04/15/2024 10:00 AM EDT Hospital Encounter Non-[place] [address] Arrived documented as of this encounter Goals Goal Patient Goal Type Associated Problems Recent Progress Patient-Stated? Author [facility] Medication Compliance and Understanding Patient Facing Action Plan On track( 017 10:41 AM EDT) No Selena Cisneros, [facility] Note: Patient Goal: Clear hepatitis C Timeframe to meet goal: within 12 weeks of therapy documented as of this encounter Visit Diagnoses Not on filedocumented in this encounter Care Teams Manager Money Relationship Specialty Start Date End Date Urbano Jimenez DO [address] [place] [address] PCP - General Family Medicine 03/18/22 Ruchi Valles RN Nurse Clinic Transplant Surgery 07/30/15 documented as of this encounter
--- OUTSIDE RECORDS SUMMARY | 2024-04-04 13:51 | XMS_ITS | Encounter Summary ---
Author Organization [facility] [place] [address] Care Team Providers Care Production Lapping Machine Operator Name Role Phone Urbano Jimenez DO Primary Care Provider [phone] Encounter Details Date Type Department Care Team (Late st Contact Info) Description 01/06/2024 Telephone [place] [phone] Barbara Josue Social History Tobacco Use Types Packs/Day Years Used Date Smoking Tobacco: Light Smoker Cigars Smokeless Tobacco: Never Comments:cigars, one weekly Alcohol Use Standard Drinks/Week Comments No 0 (1 standard drink = 0.6 oz pur e alcohol) [facility] Inpatient Questions Answer Date Recorded Does Anyone [...] She though Dr. Eagle going his contact hisPCP to share information about Yash. Would like a call back to discuss his medication. documented in this encounter Plan of Treatment Upcoming Encounters Date Type Department Care Team (Late st Contact Info) Description 04/08/2024 1:40 PM EDT Office Visit Cardiology at [address] [phone] Jay Urban MD [facility] [place] [address] 04/15/2024 10:00 AM EDT Hospital Encounter Non[place] [phone] Arrived documented as of this encounter Goals [...] on filedocumented in this encounter Care Teams Production Lapping Machine Operator Relationship Specialty Start Date End Date Urbano Jimenez DO [address] [place] [address] PCP - General Family Medicine 03/18/22 Ruchi Valles RN Nurse Clinic Transplant Surgery 07/30/15 documented as of this encounter
--- OUTSIDE RECORDS SUMMARY | 2024-04-04 13:51 | XMS_ITS | Encounter Summary ---
Author Organization [facility] [place] [address] Care Team Providers Care Commissioner Conservation Of Resources Name Role Phone Urbano Jimenez Ray KIRBY Primary Care Provider [phone] Encounter Details Date Type Department Care Team (Late st Contact Info) Description 11/09/2023 Telephone [place] [address] Mara Kimble Social History Tobacco Use Types Packs/Day Years Used Date Smoking Tobacco: Light Smoker Cigars Smokeless Tobacco: Never Comments:cigars, one weekly Alcohol Use Standard Drinks/Week Comments No 0 (1 standard drink = 0.6 oz pur e alcohol) [facility] Inpatient Questions Answer Date Recorded Does Anyone [...] 1:40 PM EDT Office Visit Cardiology at [address] [phone] Jay Urban MD [facility] [place] [address] 04/15/2024 10:00 AM EDT Hospital Encounter Non-[place] [address] Arrived documented as of this [...] on filedocumented in this encounter Care Teams Commissioner Conservation Of Resources Relationship Specialty Start Date End Date Urbano Jimenez DO [address] [place] [address] PCP - General Family Medicine 03/18/22 Ruchi Valles RN Nurse Clinic Transplant Surgery 07/30/15 documented as of this encounter
--- OUTSIDE RECORDS SUMMARY | 2024-04-04 13:51 | XMS_ITS | Encounter Summary ---
Author Organization [facility] Address [address] [place] [address] Care Team Providers Care Cook Room Supervisor Name Role Phone AdeelUrbano toscano Primary Care Provider [phone] Reason for Visit * Reason Onset Date Comments Labs Only 10/12/2014 pt ptt Encounter Details Date Type Department Care Team (Late st Contact Info) Description 10/12/2014 Telephone [facility] Nephrology - [address] [phone] Radha Judge, RN [address] [place] [address] Labs Only (pt ptt) Social History Tobacco [...] Encounter - Radha Judge RN - 10/12/2014 1612 EDT ----- Message from Que Lewis MD sent at 10/12/2014 12:59 EDT ----- Any PT/INR results on this pateint yet? Just want to make sure they are done prior to biposy for Thursday. documented in this encounter Plan of Treatment Not on file documented as of this encounter Visit Diagnoses Not on filedocumented in this encounter Care Teams Cook Room Supervisor Relationship Specialty Start Date End Date Urbano Denis DO [address] [place] [address] PCP - General 09/27/14 documented as of this encounter
--- OUTSIDE RECORDS SUMMARY | 2024-04-04 13:51 | XMS_ITS | Encounter Summary ---
Author Organization [facility] [place] [address] Care Team Providers Care Global Marketing Coordinator Name Role Phone Urbano Jimenez Ray KIRBY Primary Care Provider [phone] Encounter Details Date Type Department Care Team (Late st Contact Info) Description 02/16/2024 Telephone [place] [address] Mara Kimble Social History Tobacco Use Types Packs/Day Years Used Date Smoking Tobacco: Light Smoker Cigars Smokeless Tobacco: Never Comments:cigars, one weekly Alcohol Use Standard Drinks/Week Comments No 0 (1 standard drink = 0.6 oz pur e alcohol) [facility] Inpatient Questions Answer Date Recorded Does [...] 1:40 PM EDT Office Visit Cardiology at [address] [phone] Jay Urban MD [facility] [place] [address] 04/15/2024 10:00 AM EDT Hospital Encounter Non-[place] [address] Arrived documented as of this [...] on filedocumented in this encounter Care Teams Global Marketing Coordinator Relationship Specialty Start Date End Date Urbano Jimenez DO [address] [place] [address] PCP - General Family Medicine 03/18/22 Ruchi Valles RN Nurse Clinic Transplant Surgery 07/30/15 documented as of this encounter
--- OUTSIDE RECORDS SUMMARY | 2024-04-04 13:51 | XMS_ITS | Encounter Summary ---
Author Organization [place] [address] Care Team Providers Care Blower Operator Name Role Phone Tony Urbano Bell DO Primary Care Provider [phone] Encounter Details Date Type Department Care Team (Late st Contact Info) Description 11/10/2023 Orders Only [place] [phone] Gurdeep Boston CDL [employer] [facility] [place] [address] Social History Tobacco Use Types Packs/Day Years [...] PM EDT Office Visit Cardiology at [address] [phone] Jay Urban MD [facility] [place] [address] 04/15/2024 10:00 AM EDT Hospital Encounter Non-Invasive Cardiology Lab [facility] [place] [phone] Arrived documented as of this encounter Goals [...] on filedocumented in this encounter Care Teams Blower Operator Relationship Specialty Start Date End Date Urbano Jimenez DO [address] [place], [place] [address] [place] [address] PCP - General Family Medicine 03/18/22 Ruchi Valles RN Nurse Clinic Transplant Surgery 07/30/15 documented as of this encounter
--- OUTSIDE RECORDS SUMMARY | 2024-04-04 13:51 | XMS_ITS | Encounter Summary ---
Author Organization [facility] [place] [address] Care Team Providers Care Multiple Spindle Screw Machine Operator Name Role Phone PerrydebUrbano DO Primary Care Provider [phone] Encounter Details Date Type Department Care Team [...] 1:40 PM EDT Office Visit Cardiology at [address] [place] [address] Jay Urban MD [facility] [address] 04/15/2024 10:00 AM EDT Hospital Encounter Non-[place] [address] Arrived documented as of this encounter Goals [...] filedocumented in this encounter Care Teams Multiple Spindle Screw Machine Operator Relationship Specialty Start Date End Date Urbano Jimenez DO [address] [place] [address] PCP - General Family Medicine 03/18/22 Ruchi Valles RN Nurse Clinic Transplant Surgery 07/30/15 documented as of this encounter
--- OUTSIDE RECORDS SUMMARY | 2024-04-04 13:51 | XMS_ITS | Encounter Summary ---
[place] [address] Care Team Providers Care Conveyor System Operator Name Role Phone Urbano Jimenez DO Primary Care Provider [phone] Encounter Details Date Type Department Care Team (Latest Contact Info) Description 10/18/2023 10:00 AM EDT - 10/18/2023 11:59 PM EDT Hospital Encounter [place] [phone] Discharge Disposition: Home Social History Tobacco Use Types Packs/Day Years Used Date Smoking Tobacco: Light Smoker Cigars Smokeless Tobacco: Never Comments:cigars, one weekly Alcohol Use Standard Drinks/Week Comments No 0 (1 standard drink = 0.6 oz pur e alcohol) [facility] Inpatient Questions Answer Date [...] 2 times daily. 270 tablet 1 09/04/2023 Magnesium Gluconate (Mag-G) 27 mg magnesium (500 [...] Tablet Take 137 mcg by mouth daily. tacrolimus (Prograf) 1 mg IR capsuleIndications:H/O kidney transplant Take 1 capsule by mouth 2 times daily. 180 capsule 08/13/2023 03/29/2024 mycophenolate (Cellcept) 250 mg capsuleIndications:H/O kidney transplant Take 1 capsule by mouth 2 times daily. 180 capsule 08/13/2023 03/29/2024 calciTRIoL (Rocaltrol) 0.5 mcg capsuleIndications:H/O kidney transplant,Other complication of kidney transplant Take 1 capsule by mouth daily. 90 capsule 1 05/26/2023 12/02/2023 documented as of this encounter Plan of Treatment Upcoming Encounters Date Type Department Care Team (Late st Contact Info) Description 04/08/2024 1:40 PM EDT Office Visit Cardiology at [address] [phone] Jay Urban MD [facility] [place] [address] 04/15/2024 10:00 AM EDT Hospital Encounter Non-[place] [address] Arrived documented as of this encounter Goals Goal Patient Goal Type Associated Problems Recent Progress Patient-Stated? Author [facility] Medication Compliance and Understanding Patient Facing Action Plan On track( 017 10:41 AM EDT) No Selena Cisneros, [facility] Note: Patient [...] on filedocumented in this encounter Care Teams Conveyor System Operator Relationship Specialty Start Date End Date Urbano Jimenez DO [address] [facility] [place] [address] PCP - General Family Medicine 03/18/22 Ruchi Valles RN Nurse Clinic Transplant Surgery 07/30/15 documented as of this encounter
--- OUTSIDE RECORDS SUMMARY | 2024-04-04 13:51 | XMS_ITS | Encounter Summary ---
Author Organization [facility] [place] [address] Care Team Providers Care Dairy Equipment Specialist Name Role Phone Perrydeb Urbano Bell DO Primary Care Provider Reason for Visit * Reason Comments Medication Refill Encounter Details Date Type Department Care Team (Late st Contact Info) Description 03/29/2024 Refill [place] [address] [facility] [place] [address] H/O kidney transplant Social History Tobacco Use Types Packs/Day Years Used Date Smoking Tobacco: Light Smoker Cigars Smokeless Tobacco: Never Comments:cigars, one weekly Alcohol Use Standard Drinks/Week Comments No 0 (1 standard drink = 0.6 oz pur e alcohol) [facility] Inpatient Questions Answer Date Recorded [...] 1:40 PM EDT Office Visit Cardiology at [address] [phone] [facility] [place] [address] 04/15/2024 10:00 AM EDT Hospital Encounter Non-[place] [address] Arrived documented as of this encounter Goals Goal Patient Goal Type Associated Problems Recent Progress Patient-Stated? Author [facility] Medication Compliance and Understanding Patient Facing Action Plan On track( 017 10:41 AM EDT) Selena Scott, [facility] Note: Patient Goal: Clear hepatitis C Timeframe to meet goal: within 12 weeks of therapy documented as of this encounter Visit Diagnoses Diagnosis H/O kidney transplant Kidney replaced by transplant documented in this encounter Care Teams Dairy Equipment Specialist Relationship Specialty Start Date End Date Urbano Jimenez DO [address] [place] [address] PCP - General Family Medicine 03/18/22 Ruchi Valles RN Nurse Clinic Transplant Surgery 07/30/15 documented as of this encounter
--- OUTSIDE RECORDS SUMMARY | 2024-04-04 13:51 | XMS_ITS | Clinical Summary ---
Author Organization [facility] Address One [facility] [place] [address] Care Team Providers Care Office Support Name Role Phone Urbano Jimenez DO Primary Care Provider [phone] Allergies Active Allergy Reactions Criticality Noted Date Comments [place] 02/25/2022 Medications Medication Sig Dispensed Refills Start [...] every evening. 450 tablet 1 06/05/2023 Active metoprolol succinate XL (Toprol-XL) 50 mg [...] mouth daily. 90 capsule 3 12/02/2023 Active mycophenolate (Cellcept) 250 mg capsuleIndications: H/O kidney transplant Take 1 capsule by mouth 2 times daily. 60 capsule 5 03/29/2024 Active tacrolimus (Prograf) 1 mg IR capsuleIndications: H/O kidney transplant Take 1 capsule by mouth 2 times daily. 60 capsule 5 03/29/2024 Active Active Problems Problem Noted Date Diagnosed [...] back surgery to lower risk of periop OK or stent thrombosis. Left leg pain 05/30/2019 [...] mary-device leak. No change in pericardial effusion. [id number] flow across atrial septostomy. 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 H/O kidney transplant 02/16/2024 Telephone [place] [address] Marisela Metcalf RN 02/16/2024 Telephone [place] [address] Mara Kimble 01/16/2024 10:00 AM EDT - 01/16/2024 11:59 PM EDT Hospital Encounter [place] [address] Discharge Disposition: Home 01/14/2024 External Results [place] [phone] 01/06/2024 Telephone [place] [address] Barbara Josue from Last 3 Months Immunizations Name Administration Dates Next Due Covid-19 Bivalent (Pfizer Co mirnaty) 12yrs+ (4222-2968) 12/22/2022,04/24/2022 Covid-19 Monovalent (Moderna Spikevax) 12yrs+ (4356-1225) 05/11/2021,10/03/2020,09/05/2020 Covid-19 Monovalent (Pfizer Comirnaty purple cap) 12yrs+ () 04/24/2022 Hepatitis B Unspecified Formulation 06/20/2015,1 07/14/2014,04/16/2015 Influenza (Fluzone HD) Triva lent High Dose 04/23/2016 Influenza PF, Split 08/03/2017, 5,05/26/2013,06/04 Influenza Quadrivalent, Pres ervative Free (6-35 Mos) 04/04/2015 Influenza Unspecified Formulation 04/24/2022 Pneumococcal Polysaccharide (Pneumovax 23) 10/03/2021,04/11/2015,06/20/2014 TD Adult [...] drink = 0.6 oz pur e alcohol) [facility] Inpatient Questions Answer Date [...] PM EDT Office Visit Cardiology at [address] [address] Jay Urban MD [facility] [place] [address] 04/15/2024 10:00 AM EDT Hospital Encounter [place] [address] Arrived Health Maintenance Due Date Last Done [...] 3 - PCV) 10/03/2022 10/03/2021, 04/11/2015, 06/20/2014 DM Creatinine yearly 10/11/2023 10/10/2022, 09/19/2022, 09/18/2022, Additional history exists Covid-19 Vaccine (7 - 2022-2 4 season) 2024 12/22/2022, 04/24/2022, 04/24/2022, Additional history exists Influenza (Flu) vaccine (1 o f 1 - Influenza standard series) 03/06/2024 04/24/2022, 08/03/2017, 04/23/2016, Additional history exists Tetanus/Diphtheria/Pertussis Vaccines (4 - Td or Tdap) 09/30/2032 09/30/2022, 05/20/2011, 05/20/2011, Additional history exists Goals Goal Patient Goal Type Associated Problems Recent Progress Patient-Stated? Author DH Home Medication Compliance and Understanding Patient Facing Action Plan On track( 017 10:41 AM EDT) Selena Scott [facility] Note: Patient Goal: Clear hepatitis C Timeframe to meet goal: within 12 weeks of therapy Medical Devices Implanted Type Area Brass And Wind Instrument Repairer Device Identifier Shelf Expiration Date Model / Serial / Lot Organ Aquisition Renal Donor Kidney - [id number] Implanted:Qty : 1 on 09/16/2015 by Franko Larkin MD at [facility] IMPLANTS UNOS # [id number] / / Stent,Dbl-J,U ret,[id number] ([id number]) - [id number] Implanted:Qty : 1 on 09/16/2015 by Franko Larkin MD at [facility] IMPLANTS DO NOT USE Olympus Kassandra - Surgical Pro - [id number] / / Stent,Dbl-J,U ret,[id number] ([id number]) - [id number] Implanted:Qty : 1 on 05/20/2016 by Santosh Arredondo MD at [facility] IMPLANTS Left: Ureter DO NOT USE Olympus Kassandra - Surgical Pro - [id number] 05/28/2020 [id number] / / [id number] Cement,Bne,Sm artset,Ghv,40 g ([id number]) - [id number] Implanted:Qty : 2 on 11/25/2017 by Breezy Dale MD at [facility] IMPLANTS Right: Knee DO NOT USE Depuy Nub Card Tender - 3527 05/05/2019 [id number] / / [id number] Base,Atun,Tib ,Fb,Cmnt,Sz8 ([id number]) (Autoreq) - [id number] Implanted:Qty : 1 on 11/25/2017 by Breezy Dale MD at [facility] IMPLANTS Right: Knee DO NOT USE Depuy Nub Card Tender - 3527 07/05/2027 [id number] / / [id number] Ramón Mack Mdl,Dome,41mm ([id number]) (Autoreq) - [id number] Implanted:Qty : 1 on 11/25/2017 by Breezy Dale MD at [facility] IMPLANTS Right: Knee DO NOT USE Depuy Nub Card Tender - 3527 09/02/2022 [id number] / / [id number] Ramón Costa, Fem,Cr,Sz8,Rt ([id number]) (Autoreq) - [id number] Implanted:Qty : 1 on 11/25/2017 by Breezy Dale MD at [facility] IMPLANTS Right: Knee DO NOT USE Depuy Nub Card Tender - 3527 06/04/2027 [id number] / / [id number] Inser,Attune, Cr,Fb,Sz8,5mm ([id number]) (Autoreq) - [id number] Implanted:Qty : 1 on 11/25/2017 by Breezy Dale MD at [facility] IMPLANTS Right: Knee DO NOT USE Depuy Nub Card Tender - 3527 09/02/2022 [id number] / / [id number] Putty,Bone,Pr ogenix,Dbm,5c c ([id number]) - [id number] Implanted:Qty : 1 on 05/10/2020 by Joseph Ang MD at [facility] IMPLANTS Left: Spine Lumbar [employer] - MEDTRONIC [id number] 01/11/2021 [id number] / [id number] / [id number] Mdt: 5076: [id number]/ 29/2022 Implanted: by Jay Urban MD (Quantity not on file) Lead Heart Medtronic - [id number] / [id number] / t: 5076: [id number]/ 29/2022 Implanted: by Jay Urban MD (Quantity not on file) Lead Heart Medtronic - [id number] / [id number] / t: [id number]: [id number]/ 29/2022 Implanted: by Jay Urban MD (Quantity not on file) Pacemaker Chest Medtronic - [id number] / [id number] / Procedures Procedure Name Priority Date/Time Associated Diagnosis Comments CT SCAN (SCAN) 02/14/2024 12:00 AM EDT COMPREHENSIVE METABOLIC PANEL Routine 10/10/2022 8:22 AM EDT 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 Scanning Provider MEDIA MGR SCAN EXT O RDR/RSLT * (ABNORMAL) Comprehensive metabolic panel (non-fasting) (10/10/2022 8:22 AM EDT) Glucose 183 65 - 199 mg/dL [facility] Comment:Diabetes: >=200 mg/d L plus symptoms Blood Urea Nitrogen 15 10 - 20 mg/dL [facility] Creatinine 1.26 0.80 - 1.50 mg/dL [facility] Sodium 143 135 - 145 mmol/L [facility] Potassium 4.2 3.5 - 5.0 mmol/L [facility] Comment: Please note: ??Patients with WBC >100,000 may have falsely elevated Potassium levels. ??For accurate Potassium quantification in these patients send serum separator tube (gold top) for subsequent determinations. ??Contact the Clinical Chemistry Laboratory if there are any questions. Chloride 104 98 - 107 mmol/L [facility] Carbon Dioxide 28 22 - 31 mmol/L [facility] Anion Gap 11 5 - 15 mmol/L [facility] Calcium 9.9 8.5 - 10.5 mg/dL [facility] Protein, Total 7.2 6.1 - 8.0 g/dL [facility] Albumin 4.2 3.2 - 5.2 g/dL [facility] Aspartate Aminotransferase 22 0 - 39 unit/L [facility] Alanine Aminotransferase 22 0 - 55 unit/L [facility] Alkaline Phosphatase 84 40 - 130 unit/L [facility] Bilirubin, Total 2.0(H) 0.2 - 1.3 mg/dL [facility] Est Glomerular Filtration Rate 60 >=60 mL/min/1. 73 m?? [facility] Comment: This patient's estimated GFR was [...] In Lab Gurdeep Boston APRN CHEMISTRY ORDERABLES [facility] [place] [address] * (ABNORMAL) Hemoglobin A1c (03/18/2022 10:58 AM EDT) Hemoglobin A1c 6.6(H) 4.3 - 5.6 % [facility] Comment: Reference Range: 4.3 - [...] Mellitus, Diabetes Care 2013; 36: Suppl. 1, L00-52 Estimated Average Glucose See note mg/dL [facility] Comment: Estimated Average Glucose not [...] into estimated average glucose values. ??Diabetes Care 2008:31(8):0341-8425. Blood 03/18/2022 10:5 8 AM EDT 03/18/2022 11:17 AM EDT Narrative Resulting Agency Comment Spec In Lab Tal Eagle MD CHEMISTRY ORDERAB LES 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
--- OUTSIDE RECORDS SUMMARY | 2024-04-04 13:51 | XMS_ITS | Encounter Summary ---
Author Organization [facility] Address [facility] [place] [address] Care Team Providers Care Technology Applications Engineer Name Role Phone Urbano Jimenez Ray KIRBY Primary Care Provider [phone] Reason for Visit * Reason Onset Date Comments Medication Refill 08/31/2023 Encounter Details Date Type Department Care Team (Late st Contact Info) Description 08/31/2023 Refill Cardiology at [address] [address] Mayco Haro PA [facility] [place] [address] Medication Refill Social History Tobacco Use Types Packs/Day Years Used Date Smoking Tobacco: Light Smoker Cigars Smokeless Tobacco: Never Comments:cigars, one weekly Alcohol Use Standard Drinks/Week Comments No 0 (1 standard drink = 0.6 oz pur e alcohol) [facility] Inpatient Questions Answer Date Recorded Does Anyone [...] 1:40 PM EDT Office Visit Cardiology at [address] [phone] Jay Urban MD [facility] [place] [address] 04/15/2024 10:00 AM EDT Hospital Encounter [place] [address] Arrived documented as of this encounter Goals Goal Patient Goal Type Associated Problems Recent Progress Patient-Stated? Author [facility] Medication Compliance and Understanding Patient Facing Action Plan On track( 017 10:41 AM EDT) Selena Scott, [facility] Note: Patient Goal: Clear hepatitis C Timeframe to meet goal: within 12 weeks of therapy documented as of this encounter Visit Diagnoses Not on filedocumented in this encounter Care Teams Technology Applications Engineer Relationship Specialty Start Date End Date Urbano Jimenez DO [address] [place] [address] PCP - General Family Medicine 03/18/22 Ruchi Valles RN Nurse Clinic Transplant Surgery 07/30/15 documented as of this encounter
--- OUTSIDE RECORDS SUMMARY | 2024-04-04 13:51 | XMS_ITS | Encounter Summary ---
Author Organization [facility] Address [address] [place] [address] Care Team Providers Care Hotel Assistant General Manager Name Role Phone Urbano Denis DO Primary Care Provider [phone] Reason for Visit * Reason Onset Date Comments Appointment Related 10/06/2014 biopsy Encounter Details Date Type Department Care Team (Late st Contact Info) Description 10/06/2014 Telephone [facility] Nephrology - [address] [id number] Radha Judge, RN [address] [place] [address] Appointment Related (biopsy) Social History Tobacco Use [...] on filedocumented in this encounter Care Teams Hotel Assistant General Manager Relationship Specialty Start Date End Date Urbano Denis DO [address] [place] [address] PCP - General 09/27/14 documented as of this encounter
--- OUTSIDE RECORDS SUMMARY | 2024-04-04 13:51 | XMS_ITS | Encounter Summary ---
[place] [address] Care Team Providers Care Manager Of Project Management Name Role Phone Urbano Jimenez DO Primary Care Provider Encounter Details Date Type Department Care Team (Latest Contact Info) Description 01/16/2024 10:00 AM EDT - 01/16/2024 11:59 PM EDT Hospital Encounter Non-[place] [phone] Discharge Disposition: Home Social History Tobacco Use Types Packs/Day Years Used Date Smoking Tobacco: Light Smoker Cigars Smokeless Tobacco: Never Comments:cigars, one weekly Alcohol Use Standard Drinks/Week Comments No 0 (1 standard drink = 0.6 oz pur e alcohol) COUNTS INCLUDE [facility] BEDS AT [facility] Inpatient Questions Answer Date Recorded Does [...] 2 times daily. 180 capsule 08/13/2023 03/29/2024 documented as of this encounter Plan of Treatment Upcoming Encounters Date Type Department Care Team (Late st Contact Info) Description 04/08/2024 1:40 PM EDT Office Visit Cardiology at [address] [phone] Jay Urban MD [facility] [place] [address] 04/15/2024 10:00 AM EDT Hospital Encounter Non-[place] [address] Arrived documented as of this [...] filedocumented in this encounter Care Teams Manager Of Project Management Relationship Specialty Start Date End Date Urbano Jimenez DO [address] [place] [address] PCP - General Family Medicine 03/18/22 Ruchi Valles RN Nurse Clinic Transplant Surgery 07/30/15 documented as of this encounter
--- OUTSIDE RECORDS SUMMARY | 2024-04-04 13:51 | XMS_ITS | Encounter Summary ---
Author Organization [facility] Address [address] [place] [address] Care Team Providers Care Machine Molder Squeeze Name Role Phone Urbano Denis DO Primary Care Provider [phone] Encounter Details Date Type Department Care Team (Late st Contact Info) Description 10/06/2014 Abstract [facility] Nephrology - [address] [place], [place] [address] Que Lewis MD [address] [place] [phone] Social History Tobacco Use Types Packs/Day [...] METABOLIC PANEL (10/02/2014) GFR, Calculated, External 18.85 [facility] Glucose, Serum, External 118 [facility] Calculated Calcium, External [facility] BUN, External 39 [facility] Calcium, External 8.7 [facility] Chloride, External 105 [facility] CO2, External 27.9 [facility] Creatinine, External 3.3 [facility] Fasting?, External [facility] Potassium, External 3.9 [facility] Sodium, External 141 [facility] Blood specimen (specimen) 10/02/2014 Urbano Denis DO CHEMISTRY & BLOOD GAS ORDERABLES [facility] * BASIC METABOLIC PANEL (09/22/2014) GFR, Calculated, External 19.53 [facility] Glucose, Serum, External 102 [facility] Calculated Calcium, External [facility] BUN, External 43 [facility] Calcium, External 8.8 [facility] Chloride, External 108 [facility] CO2, External 28.9 [facility] Creatinine, External 3.2 [facility] Fasting?, External [facility] Potassium, External 3.6 [facility] Sodium, External 146 [facility] Blood specimen (specimen) 09/22/2014 Tal Diallo MD CHEMISTRY & BLOOD GA S ORDERABLES [facility] * HEMAGRAM (09/21/2014) HCT, External 36.5 [facility] MCH, External [facility] MCV, External [facility] MCHC, External [facility] Hemoglobin, External 11.9 [facility] WBC, External 6.09 [facility] RBC, External 4.10 [facility] PLT, External 253 [facility] RDW-CV, External [facility] Blood specimen (specimen) 09/21/2014 Tal Diallo MD HEMATOLOGY & PF4 ORD ERABLES [facility] * C-REACTIVE PROTEIN HIGH SENSITIVITY (09/21/2014) Pathologist [facility] High Sensitivity CRP, External 0.39 [facility] Blood specimen (specimen) 09/21/2014 Tal Diallo MD CHEMISTRY & BLOOD GA S ORDERABLES Performing Organization Address City/[facility]/ZIP Co de Phone Number [facility] * MAGNESIUM (09/21/2014) Pathologist [facility] Magnesium, External 1.9 [facility] Blood specimen (specimen) 09/21/2014 Tal Diallo MD CHEMISTRY & BLOOD GA S ORDERABLES Performing Organization Address [facility]/ZIP Co de Phone Number [facility] * BASIC METABOLIC PANEL (09/21/2014) Pathologist [facility] GFR, Calculated, External 19.53 [facility] Glucose, Serum, External 96 [facility] Calculated Calcium, External [facility] BUN, External 39 [facility] Calcium, External 8.4 [facility] Chloride, External 108 [facility] CO2, External 29.1 [facility] Creatinine, External 3.2 [facility] Fasting?, External [facility] Potassium, External 3.3 [facility] Sodium, External 145 [facility] Blood specimen (specimen) 09/21/2014 Tal Diallo MD CHEMISTRY & BLOOD GA S ORDERABLES [facility] documented in this encounter Visit Diagnoses Not on filedocumented in this encounter Care Teams Machine Molder Squeeze Relationship Specialty Start Date End Date Urbano Denis DO [address] [place] [address] PCP - General 09/27/14 documented as of this encounter
--- OUTSIDE RECORDS SUMMARY | 2024-04-04 13:51 | XMS_ITS | Encounter Summary ---
Author Organization [facility] Address [address] [place] [address] Care Team Providers Care Export Specialist Name Role Phone AdeelUrbano Checo Primary Care Provider [phone] Encounter Details Date Type Department Care Team (Late st Contact Info) Description 10/11/2014 Abstract [facility] Nephrology - [address] [place] [address] [place], [place] [address] Que Lewis MD [address] [place] [phone] Social History Tobacco Use Types Packs/Day [...] * PTH INTACT (10/09/2014) PTH, External [facility] Blood specimen (specimen) 10/09/2014 Que Lewis MD CHEMISTRY & BLOOD GAS ORDERABLES Performing Organization Address City/[facility]/ZIP Co de Phone Number [facility] * HEMAGRAM (10/09/2014) HCT, External 40.6 [facility] MCH, External [facility] MCV, External [facility] MCHC, External [facility] Hemoglobin, External 13.4 [facility] WBC, External 7.86 [facility] RBC, External 4.60 [facility] PLT, External 371 [facility] RDW-CV, External [facility] Blood specimen (specimen) 10/09/2014 Que Lewis MD HEMATOLOGY & PF4 O RDERABLES Performing Organization Address [facility]/ZIP Co de Phone Number [facility] * NEPHROLOGY PROFILE (INCLUDES BUN, CREATININE, CALCULATED GFR, ELECTROLYTES, CALCIUM, PHOSPHORUS, ALBUMIN) (10/09/2014) Phosphorus, External 4.3 [facility] Albumin, External 2.7 [facility] BUN, External 57 [facility] Chloride, External 105 [facility] Creatinine, External 3.7 [facility] Potassium, External 4.4 [facility] GFR, Calculated, External 16.52 [facility] Calculated Calcium, External [facility] Calcium, External 8.9 [facility] Sodium, External 142 [facility] CO2, External 28.6 [facility] Blood specimen (specimen) 10/09/2014 Que Lewis MD PACKAGES & DNA PRO BE ORDERABLES [facility] documented in this encounter Visit Diagnoses Not on filedocumented in this encounter Care Teams Export Specialist Relationship Specialty Start Date End Date Urbano Denis DO [address] [place] [address] PCP - General 09/27/14 documented as of this encounter
--- OUTSIDE RECORDS SUMMARY | 2024-04-04 13:51 | XMS_ITS | Encounter Summary ---
Author Organization Formerly [facility] Address [facility] [place] [address] Care Team Providers Care Financial Recording Clerk Name Role Phone Urbano Jimenez DO Primary Care Provider [phone] Encounter Details Date Type Department Care Team (Latest Contact Info) Description 09/16/2023 10:40 AM EDT Office [place] [address] Tal Eagle MD [facility] [place] [address] Type 2 diabetes mellitus with complication, without [...] 0.6 oz pur e alcohol) [facility] Inpatient Questions Answer Date Recorded [...] from 50 BID to 75 BID by Boiler Tenders Supervisor overlooking his Pacemaker. 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 09/22/2016 Vitamin D deficiency 09/20/2017 Debility 10/05/2017 Pain of right lower extremity 10/05/2017 Obesity (BMI 30.0-34.9) 11/10/2017 Hydronephrosis 06/16/2018 Atrial fibrillation with RVR - had flutter initially, then fib 01/31/2019 Left leg pain 05/30/2019 CAD (coronary artery disease) 11/24/2019 Herniated lumbar intervertebral disc 05/10/2020 Tobacco abuse counseling 10/08/2020 Postprandial RUQ pain 10/22/2021 Gall stones 10/22/2021 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 Pacemaker 01/31/2022 Aortic stenosis, mild [...] 0.17) performed by Joseph Ang MD at [facility] MAIN OR PRG DAVEY REAL TIME IMG 2D W PRB IMG ACQUIS I&R N/A 07/15/2022 TRANSESOPHAGEAL ECHOCARDIOGRAM (WRVU 2.55) performed by Ruchi Park MD at [facility] OR PRO ANASTOMOSIS, AV, ANY SITE Left 05/09/2015 AV FISTULA CREATION, DIRECT HEMODIALYSIS, ANY SITE, EG ASHWINI FISTULA UPPER EXTREMITY performed by Que Amaro MD at [facility] MAIN OR PRO ARTHROPLASTY KNEE CONDYLE & PLATEAU MEDIAL & LAT COMPARTMENTS Right 11/25/2017 TOTAL KNEE ARTHROPLASTY (WRVU 20.72) performed by Breezy Dale MD at [facility] OR PRO CYSTOURETHROSCOPY, URETER CATHETER Left 06/17/2018 CYSTO, RETROGRADE, URETEROPYELOGRAPHY (WRVU 2.37) performed by Edinson Grider III, [facility] LAMINEC/FACETECT/FORAMIN, LUMBAR 1 SEG N/A 05/10/2020 LAMINECTOMY, FACETECTOMY & FORAMINOTOMY,LUMBAR, ONE LEVEL (WRVU 15.37) performed by Joseph Ang MD at [facility] OR PRO LAMINOTOMY, LUMBAR DISK, 1 INTRSP N/A 05/10/2020 LAMINOTOMY, DECOMPRESSION, FORAMINOTOMY, LUMBAR (WRVU 13.18) performed by Joseph Ang MD at [facility] OR [facility] MICROSURG TECHNIQUES, REQ OPER MICROSCOPE N/A 05/10/2020 MICROSCOPE USE (WRVU 3.46) performed by Joseph Ang MD at [facility] OR PRO PERQ CLSR TCAT L ATR APNDGE W/ENDOCARDIAL IMPLNT N/A 05/08/2022 @PERQ TRANSCATH CLOSURE LEFT ATRIAL APPENDAGE W ENDOCARDIAL IMPLANT, INC RAD S&I (WRVU 14) performed by Tal Diana MD at [facility] CATH LABS PRO REIMPLANT URETER, SINGLE URETER Left 05/20/2016 @URETERONEOCYSTOSTOMY ANASTOMOSIS OF SINGLE URETER TO BLADDER performed by Santosh Arredondo MD at [facility] MAIN OR PRO REIMPLANT URETER, SINGLE URETER N/A 05/20/2016 @URETERONEOCYSTOSTOMY ANASTOMOSIS OF SINGLE URETER TO BLADDER performed by Que Amaro MD at [facility] MAIN OR PRO TRANSPLANT, PREP CADAVER RENAL GRAFT N/A 09/16/2015 @PREPARATION CADAVERIC RENAL ALLOGRAFT performed by Franko Larkin MD at [facility] MAIN OR PRO TRANSPLANTATION OF KIDNEY N/A 09/16/2015 @KIDNEY TRANSPLANT, WITHOUT RECIPIENT NEPHRECTOMY performed by Franko Larkin MD at [facility] MAIN OR TISSUE TRANSFER kidney US RENAL TRANSPLANT LEFT Left 01/31/2019 US Renal Transplant Left 01/31/2019 [facility] RAD ULTRASOUND US RENAL TRANSPLANT LEFT Left 02/07/2019 US Renal Transplant Left 02/07/2019 [facility] RAD ULTRASOUND Current Outpatient Medications: aspirin 81 [...] Unspecified Formulation 04/24/2022 Moderna Covid-19 Monovalent 12Yr+ (Well Service Pump Equipment Operator 100mcg) 09/05/2020, 10/03/2020, 05/11/2021 Pfizer Covid-19 (Purple [...] for diabetics, every [address] [facility] kidney ultrasound looking for renal cell CA, [...] 10/10/2022 RDWCV 13.4 10/10/2022 Labs done at [facility] on 08/27/23 scanned into the media [...] around 7% K wnl #PO4/Mg Magnesium gluconate [phone] TID #Lipid panel Elevated TG related most [...] liver enzymes in past TB then 2.5 v1aounxtu labs f/u 12 months Discussion with the patient and/or family concerned the following: ? Diagnostic results or recommended studies ? Prognosis; ? Risks and benefits of management; ? Instructions for management; ? Compliance with treatment; ? Risk factor reduction; ? Patient and family education. Total time 25 of 30 min in direct face to face work counselor. This case was staffed with Tal Ayala Nephrology and HTN Fellow I reviewed all of the above findings and assessment of Dr. Kilpatrick edited the above note to reflect my assessment and examination and formulated the recommendations which accurately reflect mine. 25 of 30 min in direct face to face work counselor. documented in this encounter Plan of Treatment Upcoming Encounters Date Type Department Care Team (Late st Contact Info) Description 04/08/2024 1:40 PM EDT Office Visit Cardiology at [address] [address] Jay Urban MD [facility] [address] [place] [address] 04/15/2024 10:00 AM EDT Hospital Encounter Non-In[place] [address] Arrived documented as of this encounter Goals Goal Patient Goal Type Associated Problems Recent Progress Patient-Stated? Author [facility] Medication Compliance and Understanding Patient Facing [...] obstruction documented in this encounter Care Teams Financial Recording Clerk Relationship Specialty Start Date End Date Urbano Jimenze DO [address] [place] [address] PCP - General Family Medicine 03/18/22 Ruchi Valles RN Nurse Clinic Transplant Surgery 07/30/15 documented as of this encounter
--- OUTSIDE RECORDS SUMMARY | 2024-04-04 13:51 | XMS_ITS | Encounter Summary ---
[place] [address] Care Team Providers Care Sleeping Car Service Attendant Name Role Phone Urbano Jimenez DO Primary Care Provider [phone] Encounter Details Date Type Department Care Team (Late st Contact Info) Description 09/30/2023 Telephone [place] [phone] Barbara Josue Social History Tobacco Use Types [...] He's very tired. Recently was at [facility] for a couple of nights with diverticulitis. 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 Was given tramadol but hasn't had any for a couple of days. Her # [phone] documented in this encounter Plan of Treatment Upcoming Encounters Date Type Department Care Team (Late st Contact Info) Description 04/08/2024 1:40 PM EDT Office Visit Cardiology at [address] [phone] Jay Urban MD [facility] [place] [place] [address] 04/15/2024 10:00 AM EDT Hospital Encounter Non[place] [phone] Arrived documented as of this encounter Goals [...] on filedocumented in this encounter Care Teams Sleeping Car Service Attendant Relationship Specialty Start Date End Date Urbano Jimenez DO [address] [place] [id number] PCP - General Family Medicine 03/18/22 Ruchi Valles RN Nurse Clinic Transplant Surgery 07/30/15 documented as of this encounter
--- OUTSIDE RECORDS SUMMARY | 2024-04-04 13:51 | XMS_ITS | Encounter Summary ---
Author Organization [facility] Address [address] [place] [address] Care Team Providers Care Risk Control Product Liability Director Name Role Phone Urbano Denis DO Primary Care Provider [phone] Encounter Details Date Type Department Care Team (Late st Contact Info) Description 10/03/2014 Abstract [facility] Nephrology - [address] [place], [place] [address] Qeu Lewis MD [address] [place] [phone] Social History Tobacco Use Types Packs/Day [...] RANDOM (05/22/2014) Tot Prot,Ur Random, External 570 [facility] Total Protein, 24 Hour Calc, [facility] Urine specimen (specimen) 05/22/2014 Urbano Kessler Adeel DO URINALYSIS ORDERAB LES [facility] * CREATININE, URINE RANDOM (05/22/2014) Creatinine, Random U (UCRR), External 191 [facility] Urine specimen (specimen) 05/22/2014 Urbano Kessler Adeel DO URINALYSIS ORDERAB LES [facility] * URINALYSIS (05/22/2014) Color UA, External yellow [facility] Clarity UA, External hazy [facility] Glucose UA, [facility] Bilirubin UA, [facility] Ketones UA, [facility] Specific Crete UA, External 1.015 [facility] Blood UA, [facility] pH UA, External 5.0 [facility] Protein UA, External >=500 [facility] Urobilinogen UA, External normal [facility] Nitrite UA, [facility] Leukocyte Esterase UA, [facility] Urine specimen (specimen) 05/22/2014 Urbano Checo Adeel DO URINALYSIS ORDERAB LES [facility] * HEMAGRAM (05/22/2014) HCT, External 39.3 [facility] MCH, [facility] MCV, [facility] MCHC, External [facility] Hemoglobin, External 13.8 [facility] WBC, External 7.1 [facility] RBC, External 4.57 [facility] PLT, External 285 [facility] RDW-CV, External [facility] Blood specimen (specimen) 05/22/2014 Urbano Denis DO HEMATOLOGY & PF4 O RDERABLES [facility] * HEMOGLOBIN A1C (05/22/2014) Hemoglobin A1C, External 5.6 [facility] Est Avg Glucose, External 114 [facility] Blood specimen (specimen) 05/22/2014 Urbano Denis DO CHEMISTRY & BLOOD GAS ORDERABLES [facility] * PHOSPHORUS (05/22/2014) Phosphorus, External 3.7 [facility] Blood specimen (specimen) 05/22/2014 Urbano Denis DO CHEMISTRY & BLOOD GAS ORDERABLES [facility] * ALBUMIN (05/22/2014) Albumin, External 3.5 [facility] Blood specimen (specimen) 05/22/2014 Urbano Kessler Adeel DO CHEMISTRY & BLOOD GAS ORDERABLES [facility] * PTH INTACT (05/22/2014) PTH, External 153 [facility] Blood specimen (specimen) 05/22/2014 Urbano Denis DO CHEMISTRY & BLOOD GAS ORDERABLES [facility] * BASIC METABOLIC PANEL (05/22/2014) GFR, Calculated, External 20 [facility] Glucose, Serum, External 124 [facility] Calculated Calcium, External [facility] BUN, External 48 [facility] Calcium, External 9.0 [facility] Chloride, External 103 [facility] CO2, External 28 [facility] Creatinine, External 3.19 [facility] Fasting?, External [facility] Potassium, External 3.6 [facility] Sodium, External 144 [facility] Blood specimen (specimen) 05/22/2014 Urbano Denis DO CHEMISTRY & BLOOD GAS ORDERABLES [facility] documented in this [...] 10/06/2014 added in this encounter Care Teams Risk Control Product Liability Director Relationship Specialty Start Date End Date Urbano Denis DO [address] [place] [address] PCP - General 09/27/14 documented as of this encounter
--- OUTSIDE RECORDS SUMMARY | 2024-04-04 13:51 | XMS_ITS | Encounter Summary ---
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 Chronic kidney disease, stage IV (severe) ([facility]) Edinson Leary MD [address] [address] Devon Zaman MD [address] [place] [phone] Referral ID Status Reason Start Date Expiration Date V isits Requested Visits Authorized [id number] Closed Specialty Services Required 10/17/2014 1 1 Question Answer Reason for Request: post-procedure follow up Encounter Details Date Type Department Care Team (Latest Contact Info) Description 10/16/2014 8:34 EDT - 10/17/2014 15:13 EDT Hospital Encounter [facility] General Surgery Unit [address], [place] [address] Devon Zaman MD [address] [place] [phone] Cardiomyopathy due to hypertension ([facility]) ([facility]) (Primary Dx); 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 Appointments Scheduled with [facility] in the Next 3 Months: These FA appointments have already been scheduled November 08, 2014 14:00 Established Patient Visit with Que Lewis [facility] Nephrology - [place] (--) [address] [facility] [address] Follow-Up Appointments and Procedures Recommended to Patient: [...] Edinson Leary MD PGY-1 10/17/2014 14:32 Pager #[phone] I interviewed and examined the patient and confirmed the findings of Dr. Leary. The case was discussed with Dr. Adams and I agree with the assessment and plan. Devon Zaman MD 10/17/2014 20:05 documented in this encounter Discharge Instructions * Discharge Instructions* Karly Pettit CN - 10/16/2014 14:23 EDT [facility] Renal Biopsy Discharge Instructions Date: 10/16/14 Physician: Junie Physician Telephone number: [phone] Diet: You may resume your normal diet [...] POA &/or COLST IN PLACE: No CULTURAL, BUDDHIST and/or LANGUAGE factors affecting health care/discharge planning:: [...] male got admitted yesterday after a [place] kidney biopsy due to a retroperitoneal bleed. [...] Dr. Adams. I discussed the findings with information services vice president:Moderate size hematoma. On exam: pt is complaining [...] 3 1944 pt [place] at this time. * Karly Pettit CNM - 10/16/2014 1153 EDT 1154-pt admitted to [facility] bed # 28 after kidney biopsy-dressing with dime size spot on right side-pt without c/o of pain-vs obtained 1230-no change in discharge from previous 1321-pt eating lunch 1455-labs drawn as ordered-iv dc'd * Karly Pettit CNM - 10/16/2014 0844 EDT 0845-pt admitted to [facility] bed # 28 for kidney biopsy-diagnosis [...] kidney disease) stage 4, GFR 15-29 ml/min ([facility]) Post-Procedure Diagnose(s): CKD (chronic kidney disease) stage 4, GFR 15-29 ml/min ([facility]) Kidney Biopsy PROCEDURE REPORT SERVICE DATE: 10/16/2014 OPERATORS: Salma Adams MD FERMENTATION MANAGER: Devon Zaman MD PROCEDURE: US guided Percutaneous needle core biopsy of the right [place] kidney. INDICATIONS Ethel Akins is a 64 [...] of the ureter. I hence called (Attending police liaison oncrufino) and Dr Morse (Renal fellow oncall) [...] his . Prescriptions were sent to the [facility] pharmacy. Marisabel Wadsworth RN 10/17/2014 [...] glomerulonephritis Chronic kidney disease, stage IV (severe) ([facility]) Ordered: 10/17/2014 documented as of this [...] 10.60(H) 4.0 - 10.4 K/cmm 10/17/2014 13:01 [facility] RBC 3.87(L) 4.36 - 5.78 M/cmm 10/17/2014 13:01 [facility] Hemoglobin 11.4(L) 13.8 - 17.3 gm/dl 10/17/2014 13:01 [facility] HCT 33.7(L) 39.5 - 50.2 % 10/17/2014 13:01 [facility] MCV 87 81 - 95 fl 10/17/2014 13:01 [facility] MCH 29.5 27.6 - 33.0 pg 10/17/2014 13:01 [facility] MCHC 34.0 32.8 - 36.4 gm/dl 10/17/2014 13:01 [facility] RDW-CV 13.8 11.8 - 14.1 % 10/17/2014 13:01 [facility] RDW-SD 41.6 36.5 - 45.9 fl 10/17/2014 13:01 [facility] PLT 277 141 - 320 K/cmm 10/17/2014 13:01 [facility] MPV 8.1 7.5 - 11.2 fl 10/17/2014 13:01 [facility] Blood specimen (specimen) BLOOD SPECIMEN / Unknown 10/17/2014 12:45 EDT 10/17/2014 12:54 EDT Edinson Leary MD HEMATOLOGY & PF4 ORD ERABLES [facility] [address] [place] [address] * (ABNORMAL) HEMAGRAM (10/17/2014 6:16 EDT) WBC 9.51 4.0 - 10.4 K/cmm 10/17/2014 7:32 [facility] RBC 3.65(L) 4.36 - 5.78 M/cmm 10/17/2014 7:32 [facility] Hemoglobin 11.1(L) 13.8 - 17.3 gm/dl 10/17/2014 7:32 [facility] HCT 31.5(L) 39.5 - 50.2 % 10/17/2014 7:32 [facility] MCV 86 81 - 95 fl 10/17/2014 7:32 [facility] MCH 30.3 27.6 - 33.0 pg 10/17/2014 7:32 [facility] MCHC 35.2 32.8 - 36.4 gm/dl 10/17/2014 7:32 [facility] RDW-CV 13.5 11.8 - 14.1 % 10/17/2014 7:32 [facility] RDW-SD 40.7 36.5 - 45.9 fl 10/17/2014 7:32 [facility] PLT 272 141 - 320 K/cmm 10/17/2014 7:32 [facility] MPV 8.3 7.5 - 11.2 fl 10/17/2014 7:32 [facility] Blood specimen (specimen) BLOOD SPECIMEN / Unknown 10/17/2014 6:16 EDT 10/17/2014 6:45 EDT Edinson Leary MD HEMATOLOGY & PF4 ORD ERABLES [facility] [address] [place] [address] * (ABNORMAL) HEMAGRAM (10/16/2014 23:56 EDT) WBC 10.12 4.0 - 10.4 K/cmm 10/17/2014 0:08 [facility] RBC 3.71(L) 4.36 - 5.78 M/cmm 10/17/2014 0:08 [facility] Hemoglobin 11.0(L) 13.8 - 17.3 gm/dl 10/17/2014 0:08 [facility] HCT 32.0(L) 39.5 - 50.2 % 10/17/2014 0:08 [facility] MCV 86 81 - 95 fl 10/17/2014 0:08 [facility] MCH 29.5 27.6 - 33.0 pg 10/17/2014 0:08 [facility] MCHC 34.3 32.8 - 36.4 gm/dl 10/17/2014 0:08 [facility] RDW-CV 13.7 11.8 - 14.1 % 10/17/2014 0:08 [facility] RDW-SD 42.4 36.5 - 45.9 fl 10/17/2014 0:08 [facility] PLT 265 141 - 320 K/cmm 10/17/2014 0:08 [facility] MPV 7.8 7.5 - 11.2 fl 10/17/2014 0:08 [facility] Blood specimen (specimen) BLOOD SPECIMEN / Unknown 10/16/2014 23:56 EDT 10/17/2014 Edinson Leary MD HEMATOLOGY & PF4 ORD ERABLES [facility] [address] [place] [address] * PROTIME (10/16/2014 20:12 EDT) Pro Time 11.5 9.5 - 12.3 secs 10/16/2014 21:05 [facility] I.N.R. 1.1 0.9 - 1.1 Ratio 10/16/2014 21:05 [facility] Comment: Moderate Intensity Coumadin INR = 2.0-3.0 Adjustments in anticoagulant therapy dose should be based upon the INR and NOT the Pro Time. Blood specimen (specimen) BLOOD SPECIMEN / Unknown 10/16/2014 20:12 EDT 10/16/2014 20:29 EDT Edinson Leary MD HEMATOLOGY & PF4 ORD ERABLES [facility] [address] [place] [address] * CT ABDOMEN, PELVIS WO CONTRAST (10/16/2014 [...] 8.58 4.0 - 10.4 K/cmm 10/16/2014 16:18 [facility] RBC 4.01(L) 4.36 - 5.78 M/cmm 10/16/2014 16:18 [facility] Hemoglobin 11.7(L) 13.8 - 17.3 gm/dl 10/16/2014 16:18 [facility] HCT 34.5(L) 39.5 - 50.2 % 10/16/2014 16:18 [facility] MCV 86 81 - 95 fl 10/16/2014 16:18 [facility] MCH 29.2 27.6 - 33.0 pg 10/16/2014 16:18 EDT [facility] MCHC 33.9 32.8 - 36.4 gm/dl 10/16/2014 16:18 T [facility] RDW-CV 13.5 11.8 - 14.1 % 10/16/2014 16:18 EDT [facility] RDW-SD 41.6 36.5 - 45.9 fl 10/16/2014 16:18 EDT [facility] PLT 274 141 - 320 K/cmm 10/16/2014 16:18 T [facility] MPV 7.9 7.5 - 11.2 fl 10/16/2014 16:18 T [facility] Blood specimen (specimen) BLOOD SPECIMEN / Unknown 10/16/2014 16:07 EDT 10/16/2014 16:15 EDT Salma Adams MD ALEIDA TOLOGY & PF4 ORDERABLES [facility] [address] [place] [address] * (ABNORMAL) HEMAGRAM (10/16/2014 14:55 EDT) WBC 8.88 4.0 - 10.4 K/cmm 10/16/2014 15:29 [facility] RBC 4.03(L) 4.36 - 5.78 M/cmm 10/16/2014 15:29 [facility] Hemoglobin 11.8(L) 13.8 - 17.3 gm/dl 10/16/2014 15:29 [facility] HCT 34.6(L) 39.5 - 50.2 % 10/16/2014 15:29 [facility] MCV 86 81 - 95 fl 10/16/2014 15:29 EDT [facility] MCH 29.3 27.6 - 33.0 pg 10/16/2014 15:29 EDT [facility] MCHC 34.1 32.8 - 36.4 gm/dl 10/16/2014 15:29 EDT [facility] RDW-CV 13.6 11.8 - 14.1 % 10/16/2014 15:29 EDT [facility] RDW-SD 40.7 36.5 - 45.9 fl 10/16/2014 15:29 EDT [facility] PLT 277 141 - 320 K/cmm 10/16/2014 15:29 EDT [facility] MPV 8.2 7.5 - 11.2 fl 10/16/2014 15:29 EDT [facility] Blood specimen (specimen) BLOOD SPECIMEN / Unknown 10/16/2014 14:55 EDT 10/16/2014 15:13 EDT Salma Adams MD ALEIDA TOLOGY & PF4 ORDERABLES Performing Organization Address City/State/RUST Co de Phone Number [facility] [address] [place] [address] * SURGICAL PATHOLOGY (10/16/2014 11:28 EDT) Pathology Report: SURGICAL PATHOLOGY REPORT Reports generated via electronic interface contain original data; however they are lacking the format of the original report. Caution should be taken when reading/interpreting unformatted reports. Name: ? ETHEL AKINS ? Accession #: ? [id number] ? : ? 1950 (Age: 64) ??M ?Collect Date: ? 10/16/2014 ? Location: ? B003 ? Receive Date: ? 10/16/2014 ? Provider: DEVON ZAMAN MD Copy to: [place] DENIS DO SALMA GOMEZ ? Provisional Light Microscopic Diagnosis: KIDNEY, [place], NEEDLE CORE BIOPSIES: - ??Diffuse and nodular [...] Date Reported: ? 10/28/2014 ? Interpretation KIDNEY, [place], NEEDLE CORE BIOPSIES: - ??Features consistent with diabetic glomerulopathy. ??See comment. 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 ??Immunofluorescence showed no specific glomerular staining. Electron microscopy findings correlate with the light and immunofluorescence findings in this case. ??There is no evidence of an immune complex mediated glomerular injury. Dr. Horowitz 10/28/2014 3:28 PM Description EM#[id number] Portions of this renal biopsy are received [...] Reported: ? 10/20/2014 ? Interpretation KIDNEY, RIGHT [place], NEEDLE CORE BIOPSIES: - ??Nonspecific staining by [...] against IgG, IgA, IgM, C3, C1q, Fibrinogen, Petal, Lambda, and polyclonal immunoglobulins (IgG, IgA, IgM). There is no specific staining of the glomeruli with any of the antibodies. Sclerotic regions of glomeruli show nonspecific entrapment with anti-IgM, anti-C3 and anti-C1q. ??There is accentuation of thickened glomerular and tubular basement membranes with many of the antibodies. ??The intratubular casts stain appropriately. ??There is no specific staining of the tubular basement membranes with anti-Petal or anti-lambda light chains. NOTE: ??One or [...] performance characteristics have been determined by [facility]. ??The positive and negative controls worked [...] confirmed the above diagnosis. End of Report [facility] 10/16/2014 11:2 8 EDT 10/16/2014 11:28 EDT Devon Zaman MD PATHOLOGY ROCHELLE JENNINGS [facility] [address] [place] [address] * (ABNORMAL) HEMAGRAM (10/16/2014 9:25 EDT) WBC 10.66(H) 4.0 - 10.4 K/cmm 10/16/2014 9:34 EDT [facility] RBC 4.39 4.36 - 5.78 M/cmm 10/16/2014 9:34 EDT [facility] Hemoglobin 13.0(L) 13.8 - 17.3 gm/dl 10/16/2014 9:34 T [facility] HCT 37.9(L) 39.5 - 50.2 % 10/16/2014 9:34 T [facility] MCV 86 81 - 95 fl 10/16/2014 9:34 T [facility] MCH 29.5 27.6 - 33.0 pg 10/16/2014 9:34 [facility] MCHC 34.2 32.8 - 36.4 gm/dl 10/16/2014 9:34 T [facility] RDW-CV 13.6 11.8 - 14.1 % 10/16/2014 9:34 [facility] RDW-SD 42.0 36.5 - 45.9 fl 10/16/2014 9:34 [facility] PLT 278 141 - 320 K/cmm 10/16/2014 9:34 [facility] MPV 8.0 7.5 - 11.2 fl 10/16/2014 9:34 [facility] Blood specimen (specimen) BLOOD SPECIMEN / Unknown 10/16/2014 9:25 EDT 10/16/2014 9:31 EDT Devon Zaman MD HEMATOLOGY & P F4 ORDERABLES Performing Organization Address City/State/RUST Co de Phone Number [facility] [address] [place] [address] documented in this encounter Visit Diagnoses Diagnosis [...] 10/04 documented in this encounter Care Teams Facility Maintenance Supervisor Relationship Specialty Start Date End Date Albania Denis DO [address] [place] [address] PCP - General 09/27/14 documented as of this encounter
--- OUTSIDE RECORDS SUMMARY | 2024-04-04 13:51 | XMS_ITS | Encounter Summary ---
Author Organization [facility] [place] [address] Care Team Providers Care Monotype Mechanic Name Role Phone Urbano Jimenez DO Primary Care Provider [phone] Encounter Details Date Type Department Care Team (Late st Contact Info) Description 11/10/2023 Telephone [place] [address] Gurdeep Boston APRN [facility] [place] [address] Social History Tobacco Use Types Packs/Day Years [...] PM EDT Office Visit Cardiology at [address] [phone] Jay Urban MD [facility] [place] [address] 04/15/2024 10:00 AM EDT Hospital Encounter Non-[place] [phone] Arrived documented as of this encounter Goals Goal Patient Goal Type Associated Problems Recent Progress Patient-Stated? Author [facility] Medication Compliance and Understanding Patient Facing Action Plan On track( 017 10:41 AM EDT) No Selena Cisneros, [facility] Note: Patient Goal: Clear hepatitis C Timeframe to meet goal: within 12 weeks of therapy documented as of this encounter Visit Diagnoses Not on filedocumented in this encounter Care Teams Monotype Mechanic Relationship Specialty Start Date End Date Urbano Jimenez DO [facility] [place] [address] PCP - General Family Medicine 03/18/22 Ruchi Valles RN Nurse Clinic Transplant Surgery 07/30/15 documented as of this encounter
--- OUTSIDE RECORDS SUMMARY | 2024-04-04 13:51 | XMS_ITS | Encounter Summary ---
Author Organization [facility] [place] [address] Care Team Providers Care Air Plant Engineer Name Role Phone Urbano Jimenez Ray KIRBY Primary Care Provider [phone] Encounter Details Date Type Department Care Team (Late st Contact Info) Description 09/02/2023 Telephone [place] [address] Mara Kimble Social History Tobacco [...] 1:40 PM EDT Office Visit Cardiology at [address] [phone] Jay Urban MD [facility] [place] [address] 04/15/2024 10:00 AM EDT Hospital Encounter Non-[place] [address] Arrived documented as of this [...] filedocumented in this encounter Care Teams Air Plant Engineer Relationship Specialty Start Date End Date Urbano Jimenez DO [address] [place] [address] PCP - General Family Medicine 03/18/22 Ruchi Valles RN Nurse Clinic Transplant Surgery 07/30/15 documented as of this encounter
--- OUTSIDE RECORDS SUMMARY | 2024-04-04 13:51 | XMS_ITS | Encounter Summary ---
Author Organization [facility] [place] [address] Care Team Providers Care Fleecer Name Role Phone Tony Urbano Bell DO Primary Care Provider [phone] Encounter Details Date Type Department Care Team (Late st Contact Info) Description 11/17/2023 External Results [place] [address] Social History Tobacco Use Types Packs/Day Years Used Date Smoking Tobacco: Light Smoker Cigars Smokeless Tobacco: Never Comments:cigars, one weekly Alcohol Use Standard Drinks/Week Comments No 0 (1 standard drink = 0.6 oz pur e alcohol) [facility] Inpatient Questions Answer Date Recorded [...] 1:40 PM EDT Office Visit Cardiology at [address] [address] Jay Urban MD [facility] [place] [place] [address] 04/15/2024 10:00 AM EDT Hospital Encounter Non-[place] [phone] Arrived documented as of this encounter Goals [...] Procedure Name Priority Date/Time Associated Diagnosis Comments [facility] EXTERNAL LAB PANEL Routine 11/12/2023 5:01 PM EDT documented in this encounter Results * [facility] External Lab Panel (11/12/2023 5:01 PM EDT) Historical Provider POINT OF CARE BOBY T ORDERABLES documented in this encounter Visit Diagnoses Not on filedocumented in this encounter Care Teams Fleecer Relationship Specialty Start Date End Date Urbano Jimenez DO [address] [place] [address] PCP - General Family Medicine 03/18/22 Ruchi Valles RN Nurse Clinic Transplant Surgery 07/30/15 documented as of this encounter
--- OUTSIDE RECORDS SUMMARY | 2024-04-04 13:51 | XMS_ITS | Encounter Summary ---
Author Organization [facility] Address [address] [place] [address] Care Team Providers Care Engineering Program Analyst Name Role Phone Urbano Denis DO Primary Care Provider [phone] Reason for Referral * Radiology Services (Routine/Next Available) - Closed Specialty Diagnoses / Procedures Referred By Humberto flor Referred To Contact Diagnoses Chronic kidney disease, stage IV (severe) ([facility]) Proteinuria Procedures RAD US GUIDANCE, BX, ASP, INJ, LOC Jennifer Bender MD [address] [place] [phone] Referral ID Status Reason Start Date Expiration Date Visits Re quested Visits Authorized [id number] Closed 10/06/2014 1 1 Reason for Visit * Reason Comments Chronic Kidney Disease * Consult (Routine) - Closed Specialty Diagnoses / Procedures Referred By Humberto flor Referred To Contact Diagnoses Chronic renal failure Urbano Denis DO [address] [place] [address] Osito Traylor MD 1 [facility], Level [address] [place] [address] Referral ID Status Reason Start Date Expiration Date Visits Re quested Visits Authorized [id number] Closed 1 1 Encounter Details Date Type Department Care Team (Late st Contact Info) Description 10/05/2014 9:00 EDT Office Visit [facility] [address] [address] Jennifer Bender MD [address] [place] [address] [place] [address] [phone] Chronic kidney disease, stage IV (severe) ([facility]) (Primary Dx); Proteinuria; Secondary hyperparathyroidism (of renal origin); Diabetes mellitus type 2, controlled ([facility]) ([facility]) Social History Tobacco Use Types Packs/Day [...] done * Jennifer Bender MD - 10/05/2014 2895 EDT [facility] Nephrology New Patient DATE OF SERVICE: 10/05/2014 NAME: Cody Bolden REASON FOR VISIT: Chronic Kidney Disease DATE OF : 1950 HISTORY OF PRESENT ILLNESS: 64 y.o. year old male who I am requested to see in consultation by Urbano Denis DO for Chronic Kidney Disease. History gathered from patient and review of medical records from visits with Dr. Loya ([facility] [place] and conversation with Dr. Denis. Chronic Kidney [...] for a second opinion today. Hospitalized at [facility] with volume overload and hypertension, responding [...] EDT Chronic kidney disease, stage IV (severe) ([facility]) Proteinuria documented in this encounter Results * RAD US GUIDANCE, BX, ASP, INJ, LOC (10/16/2014 11:39 EDT) Anatomical Region Laterality Modality Other 10/16/2014 11:3 9 EDT 10/16/2014 17:03 EDT Narrative 10/16/2014 17:03 EDT RAD US GUIDANCE, BX, ASP, INJ, LOC ??10/16/2014 11:39 AM Signs and Symptoms/Comments: 585.4-Chronic kidney disease, stage IV (severe)-ICD-9-CM 791.1-Xlamxvyzfcj-KNG-9-CM; ckd with nephrotic range proteinuria Comparison: None Description: Dr. Soni provided ultrasound guidance for core biopsies of [place] right kidney. Biopsy performed by nephrology service. Post biopsy ultrasound video images show no significant perinephric hemorrhage. Procedure Note Franko Soni MD - 10/16/2014 RAD US GUIDANCE, BX, ASP, INJ, LOC 10/16/2014 11:39 AM Signs and Symptoms/Comments: 585.4-Chronic kidney disease, stage IV (severe)-ICD-9-CM 791.0-Gzxdwufmccb-WMN-9-CM; ckd with nephrotic range proteinuria Comparison: None Description: Dr. Soni provided ultrasound guidance for core biopsies of [place] right kidney. Biopsy performed by nephrology service. Post biopsy ultrasound video images show no significant perinephric hemorrhage. Jennifer Bender MD IMG US ORDERABLES documented in this encounter Visit Diagnoses Diagnosis Chronic kidney disease, stage IV (severe) ([facility])- Primary Chronic kidney disease, Stage IV (severe) Proteinuria Secondary hyperparathyroidism (of renal origin) Diabetes mellitus type 2, controlled ([facility]) Type II or unspecified type diabetes mellitus [...] 12/01/2014 added in this encounter Care Teams Engineering Program Analyst Relationship Specialty Start Date End Date Urbano Denis DO [address] [place] [address] PCP - General 09/27/14 documented as of this encounter
--- OUTSIDE RECORDS SUMMARY | 2024-04-04 13:51 | XMS_ITS | Encounter Summary ---
Author Organization [place] [id number] Care Team Providers Care Pumpman Name Role Phone Urbano Jimenez DO Primary Care Provider [phone] Reason for Referral * Diagnostic Test (Routine) - Pending Review Specialty Diagnoses / Procedures Referred By Humberto flor Referred To Contact Radiology Procedures Non External Radiology Exam [facility] Transplant [address] [place] [phone] Referral ID Status Reason Start Date Expiration Date Visits Requested Visits Authorized [id number] Pending Review Specialty Service Requested 01/14/2024 07/16/2025 1 1 * Diagnostic Test (Routine) - New Request Specialty Diagnoses / Procedures Referred By Humberto flor Referred To Contact Radiology Procedures Non External Radiology Exam [facility] Transplant [address] [place] [phone] Referral ID Status Reason Start Date Expiration Date Visits Requested Visits Authorized [id number] New Request Specialty Service Requested 01/14/2024 07/16/2025 1 1 Encounter Details Date Type Department Care Team (Late st Contact Info) Description 01/14/2024 External Results [place] [address] Social History Tobacco Use Types [...] 1:40 PM EDT Office Visit Cardiology at [address] [phone] Jay Urban MD [facility] [place] [address] 04/15/2024 10:00 AM EDT Hospital Encounter Non-[place] [phone] Arrived documented as of this encounter Goals Goal Patient Goal Type Associated Problems Recent Progress Patient-Stated? Author [facility] Medication Compliance and Understanding Patient Facing Action Plan On track( 017 10:41 AM EDT) No Selena Cisneros, [facility] Note: Patient Goal: Clear hepatitis C Timeframe to meet goal: within 12 weeks of therapy documented as of this encounter Procedures Procedure Name Priority Date/Time Associated Diagnosis Comments NON EXTERNAL RADIOLOGY EXAM Routine 11/13/2023 2:17 PM EDT [facility] EXTERNAL LAB PANEL Routine 11/13/2023 2:03 PM EDT NON EXTERNAL RADIOLOGY EXAM Routine 09/23/2023 2:07 PM EDT documented in this encounter Results * Non External Radiology Exam (11/13/2023 2:17 PM EDT) Anatomical Region Laterality Modality Magnetic Resonan ce Historical Provider IMG MRI ORDERABLE S * [facility] [place] (11/13/2023 2:03 PM EDT) Historical Provider POINT OF CARE BOBY T ORDERABLES * Non DH External Radiology Exam (09/23/2023 2:07 PM EDT) Anatomical Region Laterality Modality Magnetic Resonan ce Historical Provider IMG MRI ORDERABLE S documented in this encounter Visit Diagnoses Not on filedocumented in this encounter Care Teams Pumpman Relationship Specialty Start Date End Date Urbano Jimenez DO [address] [place] [address] PCP - General Family Medicine 03/18/22 Ruchi Valels RN Nurse Clinic Transplant Surgery 07/30/15 documented as of this encounter
--- OUTSIDE RECORDS SUMMARY | 2024-04-04 13:51 | XMS_ITS | Encounter Summary ---
Author Organization [facility] Address [address] [place] [address] Care Team Providers Care Superintendent Nonselling Name Role Phone Adeel, Urbano Checo Primary Care Provider [phone] Reason for Visit * Reason Onset Date Comments Other 09/28/2014 Encounter Details Date Type Department Care Team (Late st Contact Info) Description 09/28/2014 Telephone [facility] Nephrology - [address] [phone] Que Lewis MD [address] [address] Other Social History Tobacco Use [...] Encounter - Que Lewis MD - 10/05/2014 0910 EDT Please get results of lab tests (chemistry) done most recently (thursday) at [facility] * Telephone Encounter - Que Lewis MD - 09/28/2014 1129 EDT Always up for a good baffel * Telephone Encounter - Radha Judge, RN - 09/28/2014 0920 EDT Spoke with : records release faxed to [facility]. Signed by verbal order. Pt and wifecalled to let us do this. DONE * Telephone Encounter - Ethel Persaud - 09/28/2014 0911 EDT Patient has given [facility] the ok to send his records to [facility]. However they need A request from us asking for them. FAX #[phone].. documented in this encounter Plan of Treatment Not on file documented as of this encounter Visit Diagnoses Not on filedocumented in this encounter Care Teams Superintendent Nonselling Relationship Specialty Start Date End Date Urbano Denis DO [address] [place] [address] PCP - General 09/27/14 documented as of this encounter
--- OUTSIDE RECORDS SUMMARY | 2024-04-04 13:51 | XMS_ITS | Encounter Summary ---
Author Organization [facility] [place] [address] Care Team Providers Care Green Building Energy Engineer Name Role Phone PerrydebUrbano DO Primary Care Provider [phone] Encounter Details Date Type Department Care Team (Late st Contact Info) Description 08/31/2023 Telephone Cardiology at [address] [phone] Giovanna Hernandez, RN Social History Tobacco Use Types Packs/Day Years Used Date Smoking Tobacco: Light Smoker Cigars Smokeless Tobacco: Never Comments:cigars, one weekly Alcohol Use Standard Drinks/Week Comments No 0 (1 standard drink = 0.6 oz pur e alcohol) [facility] Inpatient Questions Answer Date Recorded Does Anyone [...] 75 mg BID be sent to the [employer] in [place] and for the prescription to be Metoprolol Succinate 50 mg tabs one and one half tablets twice a day. stated in her vm left that they wanted 3 50 mg tabs daily to split one in half to make the dose. Will re-pend prescription to [facility] to please sign off and re-route this prescription to [facility] in [place] documented in this encounter Plan of Treatment Upcoming Encounters Date Type Department Care Team (Late st Contact Info) Description 04/08/2024 1:40 PM EDT Office Visit Cardiology at [address] [address] [facility] [place] [address] 04/15/2024 10:00 AM EDT Hospital Encounter Non[place] [phone] Arrived documented as of this encounter Goals Goal Patient Goal Type Associated Problems Recent Progress Patient-Stated? Author [facility] Medication Compliance and Understanding Patient Facing Action Plan On track( 017 10:41 AM EDT) No Selena Cisneros, [facility] Note: Patient Goal: Clear hepatitis C Timeframe to meet goal: within 12 weeks of therapy documented as of this encounter Visit Diagnoses Not on filedocumented in this encounter Care Teams Green Building Energy Engineer Relationship Specialty Start Date End Date Urbano iJmenez DO [address] [place] [address] PCP - General Family Medicine 03/18/22 Ruchi Valles RN Nurse Clinic Transplant Surgery 07/30/15 documented as of this encounter
--- OUTSIDE RECORDS SUMMARY | 2024-04-04 13:51 | XMS_ITS | Encounter Summary ---
Author Organization [facility] [place] [address] Care Team Providers Care Bobbin Collector Name Role Phone Urbano Jimenez DO Primary Care Provider [phone] Encounter Details Date Type Department Care Team (Late st Contact Info) Description 10/01/2023 Telephone [place] [phone] Marisela Metcalf, RN Social History Tobacco Use Types Packs/Day Years Used Date Smoking Tobacco: Light Smoker Cigars Smokeless Tobacco: Never Comments:cigars, one weekly Alcohol Use Standard Drinks/Week Comments No 0 (1 standard drink = 0.6 oz pur e alcohol) [facility] Inpatient Questions Answer Date Recorded Does Anyone [...] 1:40 PM EDT Office Visit Cardiology at [address] [address] Jay Urban MD [facility] [place] [address] 04/15/2024 10:00 AM EDT Hospital Encounter Non-Invasive [place] [phone] Arrived documented as of this encounter Goals [...] on filedocumented in this encounter Care Teams Bobbin Collector Relationship Specialty Start Date End Date Urbano Jimenez DO [address] [place] [address] PCP - General Family Medicine 03/18/22 Ruchi Valles RN Nurse Clinic Transplant Surgery 07/30/15 documented as of this encounter
--- OUTSIDE RECORDS SUMMARY | 2024-04-04 13:51 | XMS_ITS | Encounter Summary ---
Author Organization [facility] [place] [address] Care Team Providers Care Skilled Laborer Name Role Phone PerrydebUrbano DO Primary Care Provider [phone] Reason for Visit * Reason Comments Medication Refill Encounter Details Date Type Department Care Team (Late st Contact Info) Description 12/02/2023 Refill [place] [address] Gurdeep [place] FASHION ILLUSTRATOR [facility] [place] [address] H/O kidney transplant; Other complication of kidney [...] 1:40 PM EDT Office Visit Cardiology at [address] [place] [address] Jay Urban MD [facility] [place] [place] [address] 04/15/2024 10:00 AM EDT Hospital Encounter Non-Invasive [place] [phone] Arrived documented as of this encounter Goals [...] transplant documented in this encounter Care Teams Skilled Laborer Relationship Specialty Start Date End Date Urbano Jimenez DO [address] [place] [address] PCP - General Family Medicine 03/18/22 Ruchi Valles RN Nurse Clinic Transplant Surgery 07/30/15 documented as of this encounter
--- OUTSIDE RECORDS SUMMARY | 2024-04-04 13:51 | XMS_ITS | Encounter Summary ---
Author Organization [facility] [place] [address] Care Team Providers Care Director Of Services Name Role Phone Urbano Jimenez DO Primary Care Provider [phone] Encounter Details Date Type Department Care Team (Late st Contact Info) Description 02/16/2024 Telephone [place] [phone] Marisela Metcalf, RN Social History Tobacco Use Types Packs/Day Years Used Date Smoking Tobacco: Light Smoker Cigars Smokeless Tobacco: Never Comments:cigars, one weekly Alcohol Use Standard Drinks/Week Comments No 0 (1 standard drink = 0.6 oz pur e alcohol) [facility] Inpatient Questions Answer Date Recorded Does Anyone [...] Telephone Encounter - Marisela Metcalf RN - 02/16/2024 4:47 PM EDT I called Mara to follow up from Yash's recent ED visit. He went to [facility] about 1-2 months ago for back pain. PCP prescribed allopurinol for potential gout? He went back to the ED over the weekend due to continued back pain. He was prescribed lidocaine patches and methocarbamol. She called and spoke with Dr. Green over the weekend and was instructed notto berry picker these prescriptions and to follow up with our office this week. We did not have the records when I spoke with Mara, I let her know that as soon as I have this in information I will be able to review with Dr. Eagle and determine the best steps moving forward. She agreed with this plan and understands it could be a couple days. documented in this encounter Plan of Treatment Upcoming Encounters Date Type Department Care Team (Late st Contact Info) Description 04/08/2024 1:40 PM EDT Office Visit Cardiology at [address] [address] Jay Urban MD [facility] [place] [address] 04/15/2024 10:00 AM EDT Hospital Encounter Non-Invasive [place] [phone] Arrived documented as of this encounter Goals Goal Patient Goal Type Associated Problems Recent Progress Patient-Stated? Author [facility] Medication Compliance and Understanding Patient Facing Action Plan On track( 017 10:41 AM EDT) Selena Scott, [facility] Note: Patient Goal: Clear hepatitis C Timeframe to meet goal: within 12 weeks of therapy documented as of this encounter Visit Diagnoses Not on filedocumented in this encounter Care Teams Director Of Services Relationship Specialty Start Date End Date Urbano Jimenez DO [address] [place] [address] PCP - General Family Medicine 03/18/22 Ruchi Valles RN Nurse Clinic Transplant Surgery 07/30/15 documented as of this encounter
--- OUTSIDE RECORDS SUMMARY | 2024-04-04 13:51 | XMS_ITS | Encounter Summary ---
Author Organization [facility] Address [address] [place] [address] Care Team Providers Care Senior Lead Project Manager Name Role Phone Urbano Denis DO Primary Care Provider [phone] Reason for Visit * Reason Onset Date Comments Critical Value 10/09/2014 Encounter Details Date Type Department Care Team ([facility] st Contact Info) Description 10/09/2014 Telephone [facility] Nephrology - [address] [address] Que Lewis MD [address] [address] Critical Value Social History Tobacco [...] Que Lewis 10/09/14 @ 1320 CALLED FROM [facility] Treatment Plan: no changes per Dr. Lewis. Pt is set up for Biopsy 10/16/14 * Telephone Encounter - Sandra Umaña - 10/09/2014 1324 EDT error documented in this encounter Plan of Treatment Not on file documented as of this encounter Visit Diagnoses Not on filedocumented in this encounter Care Teams Senior Lead Project Manager Relationship Specialty Start Date End Date Urbano Denis DO [address] [place] [address] PCP - General 09/27/14 documented as of this encounter
--- OUTSIDE RECORDS SUMMARY | 2024-04-04 13:51 | XMS_ITS | Encounter Summary ---
Author Organization [facility] [place] [address] Care Team Providers Care Occupational Health Nurse Name Role Phone Urbano Jimenez Ray KIRBY Primary Care Provider [phone] Encounter Details Date Type Department Care Team (Late st Contact Info) Description 11/09/2023 Telephone [place] [address] Mara Kimble Social History Tobacco [...] 1:40 PM EDT Office Visit Cardiology at [address] [phone] Jay Urban MD [facility] [place] [address] 04/15/2024 10:00 AM EDT Hospital Encounter Non-[place] [address] Arrived documented as of this [...] filedocumented in this encounter Care Teams Occupational Health Nurse Relationship Specialty Start Date End Date Urbano Jimenez DO [address] [place] [address] PCP - General Family Medicine 03/18/22 Ruchi Valles RN Nurse Clinic Transplant Surgery 07/30/15 documented as of this encounter
--- OUTSIDE RECORDS SUMMARY | 2024-04-04 13:51 | XMS_ITS | Encounter Summary ---
Author Organization [facility] [place] [address] Care Team Providers Care Construction Cost Estimator Name Role Phone Urbano Jimenez Ray KIRBY Primary Care Provider [phone] Encounter Details Date Type Department Care Team (Late st Contact Info) Description 09/23/2023 5:00 PM EDT Ancillary Procedure Radiology Library [place] [address] Tal Eagle MD [facility] [place] [address] Social History Tobacco Use Types Packs/Day Years [...] 1:40 PM EDT Office Visit Cardiology at [address] [place] [address] Jay Urban MD [facility] [address] [place] [address] 04/15/2024 10:00 AM EDT Hospital Encounter Non-Invasive Cardiology Lab [facility] [place] [phone] Arrived documented as of this encounter Goals [...] CT Abdomen (09/23/2023 4:58 PM EDT) Narrative [facility] - 09/23/2023 4:58 PM EDT This exam is auto-finalizing. It's purpose is for storage only. Tal Eagle MD IMG FILM LIBRARY ORDERABLES Performing Organization Address City/State/[facility] Co de Phone Number [place], [place] documented in this encounter Visit Diagnoses Not on filedocumented in this encounter Care Teams Construction Cost Estimator Relationship Specialty Start Date End Date Urbano Jimenez DO [address] [place] [address] PCP - General Family Medicine 03/18/22 Ruchi Valles RN Nurse Clinic Transplant Surgery 07/30/15 documented as of this encounter
--- OUTSIDE RECORDS SUMMARY | 2024-04-04 13:52 | XMS_ITS | Encounter Summary ---
Author Organization [facility] Address [facility] [place] [address] Care Team Providers Care Intermediate Teacher Name Role Phone Perrydeb Urbano Bell DO Primary Care Provider [phone] Encounter Details Date Type Department Care Team (Late st Contact Info) Description 10/22/2022 2:30 PM EDT Office Visit Cardiology at [address] [address] Byron Brown MD [facility] [place] [address] Cardiomyopathy, unspecified type Social History Tobacco Use [...] Brown MD - 10/22/2022 2:30 PM EDT [facility] [place] [address] CARDIOLOGY/ VASCULAR OUTPATIENT NOTE Cody Bolden Urbano [...] his had an 8-unit apartment building in [facility] that they just sold. He used to [...] 1 year or prn Byron Brown MD, [facility] Cardiovascular Medicine [facility] [address] Clinic [phone] Clinic Team Nurse: [phone] Estimated time : 30 minutes total time in review of lab tests, evaluation, education of suggested medication, ordering medications and tests, communicating care coordination, and documentation of my findings and recommendations. documented in this encounter Plan of Treatment Upcoming Encounters Date Type Department Care Team (Late st Contact Info) Description 04/08/2024 1:40 PM EDT Office Visit Cardiology at [address] [phone] Jay Urban MD [facility] [place] [address] 04/15/2024 10:00 AM EDT Hospital Encounter Non-[place] [address] Arrived documented as of this encounter Goals Goal Patient Goal Type Associated Problems Recent Progress Patient-Stated? Author [facility] Medication Compliance and Understanding Patient Facing Action Plan On track( 017 10:41 AM EDT) No Selena Cisneros, [facility] Note: Patient Goal: Clear hepatitis C Timeframe to meet goal: within 12 weeks of therapy documented as of this encounter Visit Diagnoses Diagnosis Cardiomyopathy, unspecified type documented in this encounter Care Teams Intermediate Teacher Relationship Specialty Start Date End Date Urbano Jimenez DO [address] [place] [address] PCP - General Family Medicine 03/18/22 Ruchi Valles RN Nurse Clinic Transplant Surgery 07/30/15 documented as of this encounter
--- OUTSIDE RECORDS SUMMARY | 2024-04-04 13:52 | XMS_ITS | Encounter Summary ---
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; Vitamin D deficiency Social History Tobacco Use Types Packs/Day Years Used Date Smoking Tobacco: Light Smoker Cigars Smokeless Tobacco: Never Comments:cigars, one weekly Alcohol Use Standard Drinks/Week Comments No 0 (1 standard drink = 0.6 oz pur e alcohol) COUNT INCLUDES [facility] Inpatient Questions Answer Date Recorded [...] PM EDT Office Visit Cardiology at [address] [address] Jya Urban MD [facility] [place] [address] 04/15/2024 10:00 AM EDT Hospital Encounter Non-Invasive Cardiology Lab [facility] [place] [address] Arrived Scheduled Orders Name Type Priority Associated Diagnoses Orde r Schedule CBC (with Diff) Lab Routine H/O kidney transplant Other complication of kidney transplant halfway current use of immunosuppressive drug Vitamin D deficiency Expected: 08/05/2023, Expires: 02/02/2025 Hemoglobin A1c Lab Routine H/O kidney transplant Other complication of kidney transplant halfway current use of immunosuppressive drug Vitamin D deficiency Expected: 08/06/2023 (Approximate), Expires: 08/05/2024 Reticulocyte Count Lab Routine H/O kidney transplant Other complication of kidney transplant 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 Vitamin D deficiency Expected: 08/05/2023, Expires: 02/02/2025 Comprehensive metabolic panel (non-fasting) Lab Routine H/O kidney transplant Other complication of kidney transplant halfway current use of immunosuppressive drug Vitamin D deficiency Expected: 08/05/2023, Expires: 02/02/2025 Lipid Panel (Reflex Direct LDL) Lab Routine H/O kidney transplant Other complication of kidney transplant 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 Vitamin D deficiency Expected: 08/05/2023, Expires: 02/02/2025 Phosphorus Lab Routine H/O kidney transplant Other complication of kidney transplant 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 Vitamin D deficiency Expected: 08/05/2023, Expires: 02/02/2025 Magnesium Lab Routine H/O kidney transplant Other complication of kidney transplant halfway current use of immunosuppressive drug Vitamin D deficiency Expected: 08/05/2023, Expires: 02/02/2025 Uric acid Lab Routine H/O kidney transplant Other complication of kidney transplant 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 Vitamin D deficiency Expected: 08/05/2023, Expires: 02/02/2025 PTH Lab Routine H/O kidney transplant Other complication of kidney transplant halfway current use of immunosuppressive drug Vitamin D deficiency Expected: 08/05/2023, Expires: 02/02/2025 Vitamin D, 25-Hydroxy Lab Routine H/O kidney transplant Other complication of kidney transplant 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 Vitamin D deficiency Expected: 08/05/2023, Expires: 02/02/2025 1,25-dihydroxycholecalci ferol Lab Routine H/O kidney transplant Other complication of kidney transplant 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 Vitamin D deficiency Expected: 08/05/2023, Expires: 02/02/2025 Urinalysis with reflex Culture Lab Routine H/O kidney transplant Other complication of kidney transplant 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 Vitamin D deficiency Expected: 08/06/2023 (Approximate), Expires: 08/05/2024 Protein/Creatinine Ratio, urine Lab Routine H/O kidney transplant Other complication of kidney transplant 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 Vitamin D deficiency Expected: 08/05/2023, Expires: 02/02/2025 Calcium Creatinine Ratio, random urine Lab Routine H/O kidney transplant Other complication of kidney transplant halfway current use of immunosuppressive drug Vitamin D deficiency Expected: 08/05/2023, Expires: 02/02/2025 Creatinine, urine, random Lab Routine H/O kidney transplant Other complication of kidney transplant 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 Vitamin D deficiency Expected: 08/05/2023, Expires: 02/02/2025 Magnesium, urine, random Lab Routine H/O kidney transplant Other complication of kidney transplant 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 Vitamin D deficiency Expected: 08/05/2023, Expires: 02/02/2025 Phosphorus, urine, random Lab Routine H/O kidney transplant Other complication of kidney transplant 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 Vitamin D deficiency Expected: 08/05/2023, Expires: 02/02/2025 Gold Tube HOLD Lab Routine H/O kidney transplant Other complication of kidney transplant 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 Vitamin D deficiency Expected: 08/05/2023, Expires: 02/02/2025 Lavender Tube HOLD Lab Routine H/O kidney transplant Other complication of kidney transplant halfway current use of immunosuppressive drug Vitamin D deficiency Expected: 08/05/2023, Expires: 02/02/2025 Tacrolimus level Lab Routine H/O kidney transplant Other complication of kidney transplant halfway current use of immunosuppressive drug Vitamin D deficiency Expected: 08/05/2023, Expires: 02/02/2025 BKV Quant Blood Lab Routine H/O kidney transplant Other complication of kidney transplant 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
--- OUTSIDE RECORDS SUMMARY | 2024-04-04 13:52 | XMS_ITS | Encounter Summary ---
Author Organization [facility] Address [facility] [place] [address] Care Team Providers Care Chimney Builder Name Role Phone Urbano Jimenez DO Primary Care Provider [phone] Encounter Details Date Type Department Care Team (Latest Contact Info) Description 10/10/2022 10:00 AM EDT Office Visit [place] [address] Tal Eagle MD [facility] [address] [place] [address] H/O kidney transplant; Aftercare following organ transplant; Other complication of kidney transplant; Prophylactic immunotherapy; jail current use of immunosuppressive drug ; Vitamin D deficiency Social History Tobacco Use Types Packs/Day Years Used Date Smoking Tobacco: Light Smoker Cigars Smokeless Tobacco: Never Comments:cigars, one weekly Alcohol Use Standard Drinks/Week Comments No 0 (1 standard drink = 0.6 oz pur e alcohol) [facility] Inpatient Questions Answer Date Recorded Does [...] and treated with antibiotics. Per Surgery Mr. Bolden was admitted and managed non-operatively [...] (Dr. Cortés) and diverticulitis 03/2021 (see [facility]). He has no residual defects. Has [...] hepatitis) 08/25/2016 ??? Prophylactic immunotherapy 09/22/2016 ??? 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 [...] 0.17) performed by Joseph Ang MD at [facility] MAIN OR ? ? PRG DAVEY REAL TIME IMG 2D W PRB IMG ACQUIS I&R N/A 07/15/2022 TRANSESOPHAGEAL ECHOCARDIOGRAM (WRVU 2.55) performed by Ruchi Park MD at [facility] MAIN OR ??? PRO ANASTOMOSIS, AV, ANY SITE Left 05/09/2015 AV FISTULA CREATION, DIRECT HEMODIALYSIS, ANY SITE, EG ASHWINI FISTULA UPPER EXTREMITY performed by Que Amaro MD at [facility] OR ? ? PRO ARTHROPLASTY KNEE CONDYLE & PLATEAU MEDIAL & LAT COMPARTMENTS Right 11/25/2017 TOTAL KNEE ARTHROPLASTY (WRVU 20.72) performed by Breezy Dale MD at [facility] OR ??? PRO CYSTOURETHROSCOPY, URETER CATHETER Left 06/17/2018 CYSTO, RETROGRADE, URETEROPYELOGRAPHY (WRVU 2.37) [facility] Edinson Grider III[facility] ??? PRO LAMINEC/FACETECT/FORAMIN, LUMBAR 1 SEG N/A 05/10/2020 LAMINECTOMY, FACETECTOMY & FORAMINOTOMY,LUMBAR, ONE LEVEL (WRVU 15.37) performed by Joseph Ang MD at [facility] OR ??? PRO LAMINOTOMY, LUMBAR DISK, 1 INTRSP N/A 05/10/2020 LAMINOTOMY, DECOMPRESSION, FORAMINOTOMY, LUMBAR (WRVU 13.18) performed by Joseph Ang MD at [facility] OR ??? PRO MICROSURG TECHNIQUES, REQ OPER MICROSCOPE N/A 05/10/2020 MICROSCOPE USE (WRVU 3.46) performed by Joseph Ang MD at [facility] OR ??? PRO PERQ CLSR TCAT L ATR APNDGE W/ENDOCARDIAL IMPLNT N/A 05/08/2022 @PERQ TRANSCATH CLOSURE LEFT ATRIAL APPENDAGE W ENDOCARDIAL IMPLANT, INC RAD S&I (WRVU 14) performed by Tal Diana MD at [facility] CATH LABS ??? PRO REIMPLANT URETER, SINGLE URETER Left 05/20/2016 @URETERONEOCYSTOSTOMY ANASTOMOSIS OF SINGLE URETER TO BLADDER performed by Santosh Arredondo MD at [facility] OR ??? PRO REIMPLANT URETER, SINGLE URETER N/A 05/20/2016 @URETERONEOCYSTOSTOMY ANASTOMOSIS OF SINGLE URETER TO BLADDER performed by Que Amaro MD at [facility] OR ??? PRO TRANSPLANT, PREP CADAVER RENAL GRAFT N/A 09/16/2015 @PREPARATION CADAVERIC RENAL ALLOGRAFT performed by Franko Larkin MD at [facility] OR ??? PRO TRANSPLANTATION OF KIDNEY N/A 09/16/2015 @KIDNEY TRANSPLANT, WITHOUT RECIPIENT NEPHRECTOMY performed by Franko Larkin MD at [facility] MAIN OR ??? TISSUE TRANSFER kidney ??? US RENAL TRANSPLANT LEFT Left 01/31/2019 US Renal Transplant Left 01/31/2019 [facility] RAD ULTRASOUND ??? US RENAL TRANSPLANT LEFT Left 02/07/2019 US Renal Transplant Left 02/07/2019 [facility] RAD ULTRASOUND ?? Current Outpatient Medications: [...] Vaccine, Unspecified Formulation 04/24/2022 ??? Moderna Covid-19 ([employer] 100mcg) Vaccine 09/05/2020, 10/03/2020, 05/11/2021 ??? Pfizer [...] for diabetics, every 5 for non diabetics [place] kidney ultrasound looking for renal cell CA, [...] [place] 10/10/20[place] [facility] [place] 100.9 kg (222 lb 6.4 oz) [...] Negative mcL Appearance UA Clear Clear Spec [place] UA 1.018 1.005 - 1.030 Color UA [...] Cellcept 250 mg bid ?? Proteinuria Likely mohegan kidney involvement, no nephrosis ? PO4/Mg - Magnesium??gluconate [phone] TID ?? Erythrocytosis -??cont' to observe No [...] enzymes in past TB then 2.5 ? [id number] labs f/u 12 months ?? ? Discussion with the patient and/or family concerned the following: ?Diagnostic results or recommended studies ?Prognosis; ?Risks and benefits of management; ?Instructions for management; ?Compliance with treatment; ?Risk factor reduction; ?Patient and family education. ? Total time?25 of 30 min??in direct face to face financial aid counselor. documented in this encounter Plan of Treatment Upcoming Encounters Date Type Department Care Team (Late st Contact Info) Description 04/08/2024 1:40 PM EDT Office Visit Cardiology at [address] [phone] Jay Urban MD [facility] [place] [address] 04/15/2024 10:00 AM EDT Hospital Encounter Non-Invasive [place] [phone] Arrived documented as of this encounter Goals Goal Patient Goal Type Associated Problems Recent Progress Patient-Stated? 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
--- OUTSIDE RECORDS SUMMARY | 2024-04-04 13:52 | XMS_ITS | Encounter Summary ---
Author Organization [facility] Address [place] [address] Care Team Providers Care Boring Machine Operator Production Name Role Phone Urbano Jimenez Ray KIRBY Primary Care Provider [phone] Reason for Visit * Reason Onset Date Comments Medication Refill 05/26/2023 Encounter Details Date Type Department Care Team (Late st Contact Info) Description 05/26/2023 Refill [place] [address] Tal Eagle MD [facility] [place] [address] H/O kidney transplant; Aftercare following organ transplant; Other complication of kidney transplant; Vitamin D deficiency Social History Tobacco Use Types Packs/Day Years Used Date Smoking Tobacco: Light Smoker Cigars Smokeless Tobacco: Never Comments:cigars, one weekly Alcohol Use Standard Drinks/Week Comments No 0 (1 standard drink = 0.6 oz pur e alcohol) [facility] Inpatient Questions Answer Date Recorded Does [...] 1:40 PM EDT Office Visit Cardiology at [address] [address] Jay Urban MD [facility] [place] [address] 04/15/2024 10:00 AM EDT Hospital Encounter Non-Invasive Cardiology Lab [facility] [phone] Arrived documented as of this encounter Goals [...] deficiency documented in this encounter Care Teams Boring Machine Operator Production Relationship Specialty Start Date End Date Urbano Jimenez DO [address] [place] [address] PCP - General Family Medicine 03/18/22 Ruchi Valles RN Nurse Clinic Transplant Surgery 07/30/15 documented as of this encounter
--- OUTSIDE RECORDS SUMMARY | 2024-04-04 13:52 | XMS_ITS | Encounter Summary ---
Author Organization [facility] [place] [address] Care Team Providers Care Door Patcher Name Role Phone Perrydeb Urbano Bell DO Primary Care Provider [phone] Encounter Details Date Type Department Care Team (Latest Contact Info) Description 10/10/2022 12:00 PM EDT Office [place] [address] Cathie Yeager MD [facility] [place] [address] History of diverticulitis Social History Tobacco Use Types Packs/Day Years Used Date Smoking Tobacco: Light Smoker Cigars Smokeless Tobacco: Never Comments:cigars, one weekly Alcohol Use Standard Drinks/Week Comments No 0 (1 standard drink = 0.6 oz pur e alcohol) [facility] Inpatient Questions Answer Date Recorded [...] s/p DDKT in 2015, who presented to [facility] on 09/14 due to diverticulitis with microperforation. [...] 1:40 PM EDT Office Visit Cardiology at [address] [address] Jay Urban MD [facility] [place] [address] 04/15/2024 10:00 AM EDT Hospital Encounter [place] [phone] Arrived documented as of this encounter Goals Goal Patient Goal Type Associated Problems Recent Progress Patient-Stated? Author [facility] Medication Compliance and Understanding Patient Facing Action Plan On track( 017 10:41 AM EDT) [facility] Scott[facility] Note: Patient Goal: Clear hepatitis C Timeframe to meet goal: within 12 weeks of therapy documented as of this encounter Visit Diagnoses Diagnosis History of diverticulitis documented in this encounter Care Teams Door Patcher Relationship Specialty Start Date End Date Urbano Jimenez DO [address] [place] [address] PCP - General Family Medicine 03/18/22 Ruchi Valles RN Nurse Clinic Transplant Surgery 07/30/15 documented as of this encounter
--- OUTSIDE RECORDS SUMMARY | 2024-04-04 13:52 | XMS_ITS | Encounter Summary ---
Author Organization [facility] [place] [address] Care Team Providers Care Cena Name Role Phone Urbano Jimenez DO Primary Care Provider [phone] Encounter Details Date Type Department Care Team (Late st Contact Info) Description 06/17/2023 [place]phone [place] [address] Breezy Dale MD [facility] [place] [address] Social History Tobacco Use Types Packs/Day Years [...] PM EDT Office Visit Cardiology at [address] [phone] Jay Urban MD [facility] [place] [address] 04/15/2024 10:00 AM EDT Hospital Encounter Non-[place]vasive [place] [address] Arrived documented as of this [...] on filedocumented in this encounter Care Teams Cena Relationship Specialty Start Date End Date Urbano Jimenez DO [address] [place] [address] PCP - General Family Medicine 03/18/22 Ruchi Valles RN Nurse Clinic Transplant Surgery 07/30/15 documented as of this encounter
--- OUTSIDE RECORDS SUMMARY | 2024-04-04 13:52 | XMS_ITS | Encounter Summary ---
Author Organization [facility] Address [facility] [place] [address] Care Team Providers Care Complaint Analyst Name Role Phone Urbano Jimenez Ray KIRBY Primary Care Provider [phone] Reason for Visit * Reason Comments Medication Refill Encounter Details Date Type Department Care Team (Late st Contact Info) Description 03/27/2023 Refill Cardiology at [address] [address] Byron Brown MD [facility] [place] [address] Medication Refill Social History Tobacco Use Types Packs/Day Years Used Date Smoking Tobacco: Light Smoker Cigars Smokeless Tobacco: Never Comments:cigars, one weekly Alcohol Use Standard Drinks/Week Comments No 0 (1 standard drink = 0.6 oz pur e alcohol) [facility] Inpatient Questions Answer Date Recorded [...] 1:40 PM EDT Office Visit Cardiology at [address] [address] Jay Urban MD [facility] [place] [address] 04/15/2024 10:00 AM EDT Hospital Encounter Non-Invasive [place] [phone] Arrived documented as of this encounter Goals [...] fibrillation documented in this encounter Care Teams Complaint Analyst Relationship Specialty Start Date End Date Urbano Jimenez DO [address] [place] [address] PCP - General Family Medicine 03/18/22 Ruchi Valles RN Nurse Clinic Transplant Surgery 07/30/15 documented as of this encounter
--- OUTSIDE RECORDS SUMMARY | 2024-04-04 13:52 | XMS_ITS | Encounter Summary ---
Author Organization [facility] [place] [address] Care Team Providers Care Rattan Worker Name Role Phone Urbano Jimenez DO Primary Care Provider [phone] Reason for Visit * Reason Comments Medication Refill Encounter Details Date Type Department Care Team (Late st Contact Info) Description 06/05/2023 Refill Solid [place] [address] Gurdeep Boston [facility] [place] [address] H/O kidney transplant; Aftercare following organ transplant; Other complication of kidney transplant; [facility] current use of immunosuppressive drug Social History Tobacco Use Types Packs/Day Years Used Date Smoking Tobacco: Light Smoker Cigars Smokeless Tobacco: Never Comments:cigars, one weekly Alcohol Use Standard Drinks/Week Comments No 0 (1 standard drink = 0.6 oz pur e alcohol) [facility] Inpatient Questions Answer Date Recorded [...] PM EDT Office Visit Cardiology at [address] [phone] Jay Urban MD [facility] [place] [address] 04/15/2024 10:00 AM EDT Hospital Encounter Non-[place]vasive [place] [phone] Arrived documented as of this encounter Goals [...] organ transplant Other complication of kidney transplant [facility] current use of immunosuppressive drug documented in this encounter Care Teams Rattan Worker Relationship Specialty Start Date End Date Urbano Jimenez DO [address] [place] [address] PCP - General Family Medicine 03/18/22 Ruchi Valles RN Nurse Clinic Transplant Surgery 07/30/15 documented as of this encounter
--- OUTSIDE RECORDS SUMMARY | 2024-04-04 13:52 | XMS_ITS | Encounter Summary ---
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; Vitamin D deficiency Social History Tobacco Use Types Packs/Day Years Used Date Smoking Tobacco: Light Smoker Cigars Smokeless Tobacco: Never Comments:cigars, one weekly Alcohol Use Standard Drinks/Week Comments No 0 (1 standard drink = 0.6 oz pur e alcohol) [facility] In[facility] Questions Answer Date Recorded Does [...] 1:40 PM EDT Office Visit Cardiology at [address] [phone] Jay Urban MD [facility] [place] [address] 04/15/2024 10:00 AM EDT Hospital Encounter Non-Invasive Cardiology Lab [facility] [address] Arrived Scheduled Orders Name Type Priority Associated Diagnoses Orde r Schedule Transplant: Yearly lab request - External Results Lab Routine H/O kidney transplant Other complication of kidney transplant longterm current use of immunosuppressive drug Vitamin [...] by transplant Other complication of kidney transplant longterm current use of immunosuppressive drug Vitamin D deficiency Unspecified vitamin D deficiency documented in this encounter Care Teams Director Instructional Material Relationship Specialty Start Date End Date Urbano Jimenez DO [address] [place] [address] PCP - General Family Medicine 03/18/22 Ruchi Valles RN Nurse Clinic Transplant Surgery 07/30/15 documented as of this encounter
--- OUTSIDE RECORDS SUMMARY | 2024-04-04 13:52 | XMS_ITS | Encounter Summary ---
Author Organization [facility] [place] [address] Care Team Providers Care Multimedia Project Manager Name Role Phone Tony Urbano Bell DO Primary Care Provider [phone] Encounter Details Date Type Department Care Team (Late st Contact Info) Description 04/03/2023 External Results [place] [address] Social History Tobacco Use Types Packs/Day Years Used Date Smoking Tobacco: Light Smoker Cigars Smokeless Tobacco: Never Comments:cigars, one weekly Alcohol Use Standard Drinks/Week Comments No 0 (1 standard drink = 0.6 oz pur e alcohol) [facility] Inpatient Questions Answer Date Recorded Does [...] 1:40 PM EDT Office Visit Cardiology at [address] [address] Jay Urban MD [facility] [place] [address] 04/15/2024 10:00 AM EDT Hospital Encounter Non[place] [address] Arrived documented as of this encounter Goals [...] Procedure Name Priority Date/Time Associated Diagnosis Comments [facility] [place] Routine 03/26/2023 2:43 PM EDT documented in this encounter Results * [facility] [place] (03/26/2023 2:43 PM EDT) Historical Provider POINT OF CARE BOBY T ORDERABLES documented in this encounter Visit Diagnoses Not on filedocumented in this encounter Care Teams Multimedia Project Manager Relationship Specialty Start Date End Date Urbano Jimenez DO [address] [place] [address] PCP - General Family Medicine 03/18/22 Ruchi Valles RN Nurse Clinic Transplant Surgery 07/30/15 documented as of this encounter
--- OUTSIDE RECORDS SUMMARY | 2024-04-04 13:52 | XMS_ITS | Encounter Summary ---
Author Organization [facility] Address [facility] [place] [address] Care Team Providers Care Hand Spring Former Name Role Phone Tony Urbano Bell DO Primary Care Provider [phone] Reason for Visit * Reason Onset Date Comments Medication Refill 08/13/2023 Encounter Details Date Type Department Care Team (Late st Contact Info) Description 08/13/2023 Refill [place] [address] Gurdeep Boston, OFFICE COORDINATOR [facility] [place] [address] H/O kidney transplant Social History Tobacco Use [...] 1:40 PM EDT Office Visit Cardiology at [address] [address] Jay Urban MD [facility] [place] [place] [address] 04/15/2024 10:00 AM EDT Hospital Encounter Non-Invasive [place] [address] Arrived documented as of this encounter Goals Goal Patient Goal Type Associated Problems Recent Progress Patient-Stated? Author [facility] Medication Compliance and Understanding Patient Facing Action Plan On track( 017 10:41 AM EDT) Selena Scott, [facility] Note: Patient Goal: Clear hepatitis C Timeframe to meet goal: within 12 weeks of therapy documented as of this encounter Visit Diagnoses Diagnosis H/O kidney transplant Kidney replaced by transplant documented in this encounter Care Teams Hand Spring Former Relationship Specialty Start Date End Date Urbano Jimenez DO [address] [place] [address] PCP - General Family Medicine 03/18/22 Ruchi Valles RN Nurse Clinic Transplant Surgery 07/30/15 documented as of this encounter
--- OUTSIDE RECORDS SUMMARY | 2024-04-04 13:52 | XMS_ITS | Encounter Summary ---
Author Organization [facility] [place] [address] Care Team Providers Care Special Delivery Clerk Name Role Phone TonyUrbano DO Primary Care Provider [phone] Encounter Details Date Type Department Care Team (Late st Contact Info) Description 09/20/2022 Telephone [place] [phone] Noelle Hoffman MD [facility] [place] [address] Social History Tobacco Use Types Packs/Day Years [...] Augmentin although says went to [facility] in [place], [place] in the system, the prescription was actually sent to [facility] mail order so the [facility] pharmacy does not have the order to fill his Augmentin. From eDH I can see the Augmentin WAS sent to the [facility] pharmacy. I called [facility] in [place], [place] directly. There is an issue withprocessing [...] PM EDT Office Visit Cardiology at [address] [address] Jay Urban MD [facility] [place] [address] 04/15/2024 10:00 AM EDT Hospital Encounter Non-Invasive [place] [address] Arrived documented as of this encounter Goals Goal Patient Goal Type Associated Problems Recent Progress Patient-Stated? Author [facility] Medication Compliance and Understanding Patient Facing Action Plan On track( 017 10:41 AM EDT) No Selena Cisneros, [facility] Note: Patient Goal: Clear hepatitis C Timeframe to meet goal: within 12 weeks of therapy documented as of this encounter Visit Diagnoses Not on filedocumented in this encounter Care Teams Special Delivery Clerk Relationship Specialty Start Date End Date Urbano Jimenez DO [address] [place] [address] PCP - General Family Medicine 03/18/22 Ruchi Valles RN Nurse Clinic Transplant Surgery 07/30/15 documented as of this encounter
--- OUTSIDE RECORDS SUMMARY | 2024-04-04 13:52 | XMS_ITS | Encounter Summary ---
Author Organization [facility] Address [facility] [place] [address] Care Team Providers Care Bag Inspector Name Role Phone Urbano Jimenez Ray KIRBY Primary Care Provider [phone] Reason for Visit * Reason Onset Date Comments Medication Refill 07/08/2023 Encounter Details Date Type Department Care Team (Late st Contact Info) Description 07/08/2023 Refill Cardiology at [address] [address] Byron Brown MD [facility] [place] [address] Medication Refill Social History Tobacco Use Types Packs/Day Years Used Date Smoking Tobacco: Light Smoker Cigars Smokeless Tobacco: Never Comments:cigars, one weekly Alcohol Use Standard Drinks/Week Comments No 0 (1 standard drink = 0.6 oz pur e alcohol) [facility] Inpatient Questions Answer Date Recorded [...] or prn Next f/u: 10/22/23 Monica Roberson shipping room supervisor Clinic at [facility] [address] documented in this encounter Plan of Treatment Upcoming Encounters Date Type Department Care Team (Late st Contact Info) Description 04/08/2024 1:40 PM EDT Office Visit Cardiology at [address] [address] Jay Urban MD [facility] [place] [address] 04/15/2024 10:00 AM EDT Hospital Encounter Non-Invasive [place] [address] Arrived documented as of this [...] fibrillation documented in this encounter Care Teams Bag Inspector Relationship Specialty Start Date End Date Urbano Jimenez DO [address] [place] [address] PCP - General Family Medicine 03/18/22 Ruchi Valles RN Nurse Clinic Transplant Surgery 07/30/15 documented as of this encounter
--- OUTSIDE RECORDS SUMMARY | 2024-04-04 13:52 | XMS_ITS | Encounter Summary ---
[place] [address] Care Team Providers Care Peanut Blancher Name Role Phone Urbano Jimenez DO Primary Care Provider [phone] Encounter Details Date Type Department Care Team (Latest Contact Info) Description 07/20/2023 10:00 AM EST - 07/20/2023 11:59 PM [facility] Hospital Encounter Non-Invasive [place] [address] Discharge Disposition: Home Social History Tobacco Use Types Packs/Day Years Used Date Smoking Tobacco: Light Smoker Cigars Smokeless Tobacco: Never Comments:cigars, one weekly Alcohol Use Standard Drinks/Week Comments No 0 (1 standard drink = 0.6 oz pur e alcohol) [facility] Inpatient Questions Answer Date Recorded [...] PM EDT Office Visit Cardiology at [address] [phone] Jay Urban MD [facility] [place] [address] 04/15/2024 10:00 AM EDT Hospital Encounter Non-Invasive [place] [address] Arrived documented as of this [...] on filedocumented in this encounter Care Teams Peanut Blancher Relationship Specialty Start Date End Date Urbano Jimenez DO [address] [place] [address] PCP - General Family Medicine 03/18/22 Ruchi Valles RN Nurse Clinic Transplant Surgery 07/30/15 documented as of this encounter
--- OUTSIDE RECORDS SUMMARY | 2024-04-04 13:52 | XMS_ITS | Encounter Summary ---
Author Organization [facility] [place] [address] Care Team Providers Care Silviculture Professor Name Role Phone PerrydebUrbano DO Primary Care Provider [phone] Encounter Details Date Type Department Care Team [...] PM EDT Office Visit Cardiology at [address] [place] [address] Jay Urban MD [facility] [place] [address] 04/15/2024 10:00 AM EDT Hospital Encounter Non-[place] [address] Arrived documented as of this encounter Goals [...] on filedocumented in this encounter Care Teams Silviculture Professor Relationship Specialty Start Date End Date Urbano Jimenez DO [address] [place] [address] PCP - General Family Medicine 03/18/22 Ruchi Valles RN Nurse Clinic Transplant Surgery 07/30/15 documented as of this encounter
--- OUTSIDE RECORDS SUMMARY | 2024-04-04 13:52 | XMS_ITS | Encounter Summary ---
Author Organization [facility] Address [facility] [place] [address] Care Team Providers Care Shotgun Shell Loading Machine Operator Name Role Phone Urbano Jimenez Ray KIRBY Primary Care Provider [phone] Reason for Visit * Reason Onset Date Comments Medication Refill 05/26/2023 Encounter Details Date Type Department Care Team (Late st Contact Info) Description 05/26/2023 Refill Cardiology at [address] [address] Byron Brown MD [facility] [place] [address] Medication Refill Social History Tobacco Use Types Packs/Day Years Used Date Smoking Tobacco: Light Smoker Cigars Smokeless Tobacco: Never Comments:cigars, one weekly Alcohol Use Standard Drinks/Week Comments No 0 (1 standard drink = 0.6 oz pur e alcohol) [facility] Inpatient Questions Answer Date Recorded [...] 1:40 PM EDT Office Visit Cardiology at [address] [address] Jay Urban MD [facility] [place] [address] 04/15/2024 10:00 AM EDT Hospital Encounter Non-[place] [address] Arrived documented as of this encounter Goals Goal Patient Goal Type Associated Problems Recent Progress Patient-Stated? Author [facility] Medication Compliance and Understanding Patient Facing Action Plan On track( 017 10:41 AM EDT) Selena Scott, [facility] Note: Patient Goal: Clear hepatitis C Timeframe to meet goal: within 12 weeks of therapy documented as of this encounter Visit Diagnoses Diagnosis Coronary artery disease Coronary atherosclerosis of unspecified type of vessel, [place] or graft documented in this encounter Care Teams Shotgun Shell Loading Machine Operator Relationship Specialty Start Date End Date Urbano Jimenez DO [address] [place] [address] PCP - General Family Medicine 03/18/22 Ruchi Valles RN Nurse Clinic Transplant Surgery 07/30/15 documented as of this encounter
--- OUTSIDE RECORDS SUMMARY | 2024-04-04 13:52 | XMS_ITS | Encounter Summary ---
[place] [address] Care Team Providers Care Marketing Summer Intern Name Role Phone Urbano Jimenez DO Primary Care Provider [phone] Encounter Details Date Type Department Care Team (Latest Contact Info) Description 04/21/2023 10:00 AM EDT - 04/21/2023 11:59 PM EDT Hospital Encounter Non[place] [address] Discharge Disposition: Home Social History Tobacco Use Types Packs/Day Years Used Date Smoking Tobacco: Light Smoker Cigars Smokeless Tobacco: Never Comments:cigars, one weekly Alcohol Use Standard Drinks/Week Comments No 0 (1 standard drink = 0.6 oz pur e alcohol) [facility] Inpatient Questions Answer Date Recorded [...] 1:40 PM EDT Office Visit Cardiology at [address] [phone] Jay Urban MD [facility] [place] [address] 04/15/2024 10:00 AM EDT Hospital Encounter Non-[place] [address] Arrived documented as of this [...] on filedocumented in this encounter Care Teams Marketing Summer Intern Relationship Specialty Start Date End Date Urbano Jimenez DO [address] [place] [address] PCP - General Family Medicine 03/18/22 Ruchi Valles RN Nurse Clinic Transplant Surgery 07/30/15 documented as of this encounter
--- OUTSIDE RECORDS SUMMARY | 2024-04-04 13:52 | XMS_ITS | Encounter Summary ---
Author Organization [facility] [place] [address] Care Team Providers Care Clamp Jig Assembler Name Role Phone Urbano Jimenez DO Primary Care Provider [phone] Encounter Details Date Type Department Care Team (Late st Contact Info) Description 06/05/2023 Telephone Cardiology at [address] [phone] Kate Gastelum Social History Tobacco Use Types Packs/Day Years Used Date Smoking Tobacco: Light Smoker Cigars Smokeless Tobacco: Never Comments:cigars, one weekly Alcohol Use Standard Drinks/Week Comments No 0 (1 standard drink = 0.6 oz pur e alcohol) [facility] Inpatient Questions Answer Date Recorded Does [...] has appt for a device check at [facility] in August. Kate Gastelum EP Scheduling documented in this encounter Plan of Treatment Upcoming Encounters Date Type Department Care Team (Late st Contact Info) Description 04/08/2024 1:40 PM EDT Office Visit Cardiology at [address] [phone] Jay Urban MD [facility] [place] [address] 04/15/2024 10:00 AM EDT Hospital Encounter Non-[place] [address] Arrived documented as of this encounter Goals [...] on filedocumented in this encounter Care Teams Clamp Jig Assembler Relationship Specialty Start Date End Date Urbano Jimenez DO [address] [place] [address] [place] [address] PCP - General Family Medicine 03/18/22 Ruchi Valles RN Nurse Clinic Transplant Surgery 07/30/15 documented as of this encounter
--- OUTSIDE RECORDS SUMMARY | 2024-04-04 13:52 | XMS_ITS | Encounter Summary ---
Author Organization [facility] [place] [address] Care Team Providers Care Dust Brush Assembler Name Role Phone PerrydebUrbano DO Primary Care Provider [phone] Encounter Details Date Type Department Care Team [...] PM EDT Office Visit Cardiology at [address] [place] [address] Jay Urban MD [facility] [place] [address] 04/15/2024 10:00 AM EDT Hospital Encounter Non-[place]vasive [place] [address] Arrived documented as of this encounter Goals [...] on filedocumented in this encounter Care Teams Dust Brush Assembler Relationship Specialty Start Date End Date Urbano Jimenez DO [address] [place] [address] PCP - General Family Medicine 03/18/22 Ruchi Valles RN Nurse Clinic Transplant Surgery 07/30/15 documented as of this encounter
--- OUTSIDE RECORDS SUMMARY | 2024-04-04 13:52 | XMS_ITS | Encounter Summary ---
Author Organization [facility] Address [facility] [address] Care Team Providers Care Floor Attendant Name Role Phone Urbano Jimenez Ray KIRBY Primary Care Provider [phone] Reason for Visit * Reason Onset Date Comments Medication Refill 05/29/2023 Encounter Details Date Type Department Care Team (Late st Contact Info) Description 05/29/2023 Refill Solid [place] [address] Tal Eagle MD [facility] [place] [address] Prophylactic immunotherapy; H/O kidney transplant Social History [...] 1:40 PM EDT Office Visit Cardiology at [address] [address] Jay Urban MD [facility] [place] [place] [address] 04/15/2024 10:00 AM EDT Hospital Encounter Non-Invasive Cardiology Lab [facility] [place] [address] Arrived documented as of this encounter Goals Goal Patient Goal Type Associated Problems Recent Progress Patient-Stated? Author [facility] Medication Compliance and Understanding Patient [...] transplant documented in this encounter Care Teams Floor Attendant Relationship Specialty Start Date End Date Urbano Jimenez DO [address] [place] [address] PCP - General Family Medicine 03/18/22 Ruchi Valles RN Nurse Clinic Transplant Surgery 07/30/15 documented as of this encounter
--- OUTSIDE RECORDS SUMMARY | 2024-04-04 13:52 | XMS_ITS | Encounter Summary ---
Author Organization [facility] Address [facility] [place] [address] Care Team Providers Care Embedded Systems Software Developer Name Role Phone Perrydeb Urbano Bell DO Primary Care Provider [phone] Reason for Visit * Reason Onset Date Comments Medication Refill 02/11/2023 Encounter Details Date Type Department Care Team (Late st Contact Info) Description 02/11/2023 Refill Solid [place] [address] Tal Eagle MD [facility] [place] [address] Prophylactic immunotherapy; H/O kidney transplant Social History [...] 1:40 PM EDT Office Visit Cardiology at [address] [address] Jay Urban MD [facility] [place] [address] 04/15/2024 10:00 AM EDT Hospital Encounter Non-Invasive Cardiology Lab [facility] [place] [address] Arrived documented as of this encounter Goals [...] transplant documented in this encounter Care Teams Embedded Systems Software Developer Relationship Specialty Start Date End Date Urbano Jimenez DO [address] [place] [address] PCP - General Family Medicine 03/18/22 Ruchi Valles RN Nurse Clinic Transplant Surgery 07/30/15 documented as of this encounter
--- OUTSIDE RECORDS SUMMARY | 2024-04-04 13:52 | XMS_ITS | Encounter Summary ---
Author Organization [facility] [place] [address] Care Team Providers Care Car Shakeout Operator Name Role Phone Urbano Jimenez Ray KIRBY Primary Care Provider [phone] Encounter Details Date Type Department Care Team (Late st Contact Info) Description 01/01/2023 Telephone [place] [address] Mara [place] Social History Tobacco Use Types Packs/Day Years Used Date Smoking Tobacco: Light Smoker Cigars Smokeless Tobacco: Never Comments:cigars, one weekly Alcohol Use Standard Drinks/Week Comments No 0 (1 standard drink = 0.6 oz pur e alcohol) [facility] Inpatient Questions Answer Date Recorded Does [...] 1:40 PM EDT Office Visit Cardiology at [address] [phone] Jay Urban MD [facility] [place] [address] 04/15/2024 10:00 AM EDT Hospital Encounter Non-Invasive [place] [address] Arrived documented as of this [...] filedocumented in this encounter Care Teams Car Shakeout Operator Relationship Specialty Start Date End Date Urbano Jimenez DO [address] [place] [address] PCP - General Family Medicine 03/18/22 Ruchi Valles RN Nurse Clinic Transplant Surgery 07/30/15 documented as of this encounter
--- OUTSIDE RECORDS SUMMARY | 2024-04-04 13:52 | XMS_ITS | Encounter Summary ---
Author Organization [facility] [place] [address] Care Team Providers Care Cloth Mercerizer Back Tender Name Role Phone Tony Urbano Bell DO Primary Care Provider [phone] Encounter Details Date Type Department Care Team (Late st Contact Info) Description 08/28/2023 External Results [place] [address] Social History Tobacco Use Types [...] 1:40 PM EDT Office Visit Cardiology at [address] [address] Jay Urban MD [facility] [place] [address] 04/15/2024 10:00 AM EDT Hospital Encounter Non-[place] [address] Arrived documented as of this encounter Goals [...] Procedure Name Priority Date/Time Associated Diagnosis Comments [facility] EXTERNAL LAB PANEL Routine 08/20/2023 1:05 PM EST documented in this encounter Results * [facility] External Lab Panel (08/20/2023 1:05 PM EST) Historical Provider POINT OF CARE BOBY T ORDERABLES documented in this encounter Visit Diagnoses Not on filedocumented in this encounter Care Teams Cloth Mercerizer Back Tender Relationship Specialty Start Date End Date Urbano Jimenez DO [address] [place] [address] PCP - General Family Medicine 03/18/22 Ruchi Valles RN Nurse Clinic Transplant Surgery 07/30/15 documented as of this encounter
--- OUTSIDE RECORDS SUMMARY | 2024-04-04 13:52 | XMS_ITS | Encounter Summary ---
Author Organization [facility] [place] [address] Care Team Providers Care Edge Cutter Name Role Phone Urbano Jimenez DO Primary Care Provider [phone] Reason for Visit * Reason Comments Medication Refill Encounter Details Date Type Department Care Team (Late st Contact Info) Description 11/13/2022 Refill [place] [address] Tal Eagle MD [facility] [place] [address] H/O kidney transplant; Aftercare following organ transplant; Other complication of kidney transplant; Vitamin D deficiency Social History Tobacco Use Types Packs/Day Years Used Date Smoking Tobacco: Light Smoker Cigars Smokeless Tobacco: Never Comments:cigars, one weekly Alcohol Use Standard Drinks/Week Comments No 0 (1 standard drink = 0.6 oz pur e alcohol) [facility] Inpatient Questions Answer Date Recorded [...] 1:40 PM EDT Office Visit Cardiology at [address] [address] Jay Urban MD [facility] [place] [address] 04/15/2024 10:00 AM EDT Hospital Encounter Non[place] [address] Arrived documented as of this encounter Goals Goal Patient Goal Type Associated Problems Recent Progress Patient-Stated? Author [facility] Medication Compliance and Understanding Patient Facing [...] deficiency documented in this encounter Care Teams Edge Cutter Relationship Specialty Start Date End Date Urbano Jimenez DO [address] [place] [address] PCP - General Family Medicine 03/18/22 Ruchi Valles RN Nurse Clinic Transplant Surgery 07/30/15 documented as of this encounter
--- OUTSIDE RECORDS SUMMARY | 2024-04-04 13:52 | XMS_ITS | Encounter Summary ---
[place] [address] Care Team Providers Care Service Station Operator Name Role Phone Urbano Jimenez DO Primary Care Provider [phone] Encounter Details Date Type Department Care Team (Latest Contact Info) Description 01/21/2023 10:00 AM EDT - 01/21/2023 11:59 PM EDT Hospital Encounter [place] [phone] Discharge Disposition: Home Social History Tobacco Use Types Packs/Day Years Used Date Smoking Tobacco: Light Smoker Cigars Smokeless Tobacco: Never Comments:cigars, one weekly Alcohol Use Standard Drinks/Week Comments No 0 (1 standard drink = 0.6 oz pur e alcohol) [facility] Inpatient Questions Answer Date Recorded Does Anyone [...] transplant,Aftercare following organ transplant,Other complication of kidney transplant,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 Author DH Home Medication Compliance and Understanding Patient Facing Action Plan On track( 017 10:41 AM EDT) Selena Soctt, [facility] Note: Patient Goal: Clear [...] on filedocumented in this encounter Care Teams Service Station Operator Relationship Specialty Start Date End Date Urbano Jimenez DO [address] [place] [address] PCP - General Family Medicine 03/18/22 Ruchi Valles RN Nurse Clinic Transplant Surgery 07/30/15 documented as of this encounter
--- OUTSIDE RECORDS SUMMARY | 2024-04-04 13:52 | XMS_ITS | Encounter Summary ---
Author Organization Formerly [facility] Address [facility] [address] Care Team Providers Care Green Energy Marketing Analyst Name Role Phone Urbano Jimenez Ray KIRBY Primary Care Provider [phone] Reason for Visit * Reason Comments Medication Refill Encounter Details Date Type Department Care Team (Late st Contact Info) Description 02/09/2023 Refill Cardiology at [address] [phone] Byron Brown MD [facility] [place] [address] Medication Refill Social History Tobacco Use Types Packs/Day Years Used Date Smoking Tobacco: Light Smoker Cigars Smokeless Tobacco: Never Comments:cigars, one weekly Alcohol Use Standard Drinks/Week Comments No 0 (1 standard drink = 0.6 oz pur e alcohol) [facility] Inpatient Questions Answer Date Recorded [...] 1:40 PM EDT Office Visit Cardiology at [address] [phone] Jay Urban MD [facility] [place] [address] 04/15/2024 10:00 AM EDT Hospital Encounter Non-Invasive Cardiology Lab [facility] [place] [address] Arrived documented as of this encounter Goals Goal Patient Goal Type Associated Problems Recent Progress Patient-Stated? Author DH Home Medication Compliance and Understanding Patient Facing Action Plan On track( 017 10:41 AM EDT) Selena Scott, [facility] Note: Patient Goal: Clear hepatitis C Timeframe to meet goal: within 12 weeks of therapy documented as of this encounter Visit Diagnoses Diagnosis Coronary artery disease Coronary atherosclerosis of unspecified type of vessel, telida or graft documented in this encounter Care Teams Green Energy Marketing Analyst Relationship Specialty Start Date End Date Urbano Jimenez DO [address] [place] [address] PCP - General Family Medicine 03/18/22 Ruchi Valles RN Nurse Clinic Transplant Surgery 07/30/15 documented as of this encounter
--- OUTSIDE RECORDS SUMMARY | 2024-04-04 13:52 | XMS_ITS | Encounter Summary ---
Author Organization [facility] [place] [address] Care Team Providers Care Motor Builder Winder Name Role Phone Perrydeb Urbano Bell DO Primary Care Provider [phone] Encounter Details Date Type Department Care Team (Latest Contact Info) Description 10/10/2022 8:20 AM EDT Laboratory Appointment Lab [address] [place] [address] H/O kidney transplant; care home current use of immunosuppressive drug; Vitamin [...] 1:40 PM EDT Office Visit Cardiology at [address] [phone] Jay Urban MD [facility] [place] [address] 04/15/2024 10:00 AM EDT Hospital Encounter Non-Invasive Cardiology Lab [facility] [place] [address] Arrived documented as of this encounter Goals [...] 10/10/2022 9:02 AM EDT H/O kidney transplant care home current use of immunosuppressive drug Vitamin D deficiency URINALYSIS WITH REFLEX CULTURE Routine 10/10/2022 9:02 AM EDT H/O kidney transplant 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 immunosuppressive 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 Vitamin D deficiency BKV QUANT BLOOD Routine 10/10/2022 8:22 AM EDT H/O kidney transplant 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 immunosuppressive 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 Vitamin D deficiency HEMOGRAM Routine 10/10/2022 8:22 AM EDT H/O kidney transplant 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 immunosuppressive drug Vitamin D deficiency DIFFERENTIAL, AUTOMATED Routine 10/10/2022 8:22 AM EDT H/O kidney transplant care home current use of immunosuppressive drug Vitamin D deficiency HC FK-506 (TACROLIMUS) Routine 10/10/2022 8:22 AM EDT H/O kidney transplant care home current use of immunosuppressive drug Vitamin D deficiency HC RETIC,AUTO INCLUDES RETHE & IRF Routine 10/10/2022 8:22 AM EDT H/O kidney transplant 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 immunosuppressive 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 Vitamin D deficiency HC CBC,PLT & AUTO DIFF Routine 10/10/2022 8:22 AM EDT H/O kidney transplant care home current use of immunosuppressive drug Vitamin D deficiency HC URIC ACID, SERUM Routine 10/10/2022 8 :22 AM EDT H/O kidney transplant 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 immunosuppressive drug Vitamin D deficiency HC PHOSPHORUS, SERUM Routine 10/10/2022 8:22 AM EDT H/O kidney transplant 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 immunosuppressive drug Vitamin D deficiency HC MAGNESIUM, SERUM Routine 10/10/2022 8 :22 AM EDT H/O kidney transplant care home current use of immunosuppressive drug Vitamin D deficiency LIPID PANEL (REFLEX DIRECT LDL) Routine 10/10/2022 8:22 AM EDT H/O kidney transplant 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 immunosuppressive drug Vitamin D deficiency COMPREHENSIVE METABOLIC PANEL Routine 10/10/2022 8:22 AM EDT H/O kidney transplant 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 immunosuppressive drug Vitamin D deficiency documented in this encounter Results * Urinalysis Microscopic Exam (10/10/2022 9:02 AM EDT) RBC, Urine 1 0 - 3 /HPF [facility] WBC, Urine 1 0 - 3 /HPF [facility] Clean Catch Urine 10/10/2022 9:02 AM EDT 10/10/2022 9:08 AM EDT Narrative Resulting Agency Comment Spec In Lab Gurdeep Boston APRN URINE ORDERABLES [facility] [place] [address] * (ABNORMAL) Urinalysis with reflex Culture (10/10/2022 9:02 AM EDT) Glucose, Urine Dipstick Negative Negative mg/dL [facility] Protein, Urine Dipstick Trace(A) Negative mg/dL [facility] Bilirubin, Urine Dipstick Negative Negative mg/dL [facility] Comment: Clinical correlation required for positive Urine Bilirubin results as false positive may occur with some drugs and drug related products. If a false positive is suspected a serum total bilirubin should be considered if clinically indicated. Urobilinogen, Urine Dipstick Normal Normal mg/dL [facility] pH, Urn (dipstick) 7.0 5.0 - 8.0 [facility] Blood, Urine Dipstick Negative Negative mg/dL [facility] Ketone, Urine Dipstick Negative Negative mg/dL [facility] Nitrite, Urine Dipstick Negative Negative [facility] Leukocytes, Urine Dipstick Negative Negative mcL [facility] Appearance, Urine Dipstick Clear Clear [facility] Specific [place] Urine Automated 1.018 1.005 - 1.030 [facility] Color, Urine Dipstick Yellow Yellow [facility] Reflex to Culture No [facility] Clean Catch Urine 10/10/2022 9:02 AM EDT 10/10/2022 9:08 AM EDT Narrative Resulting Agency Comment Spec In Lab Gurdeep Boston TARGET PROTECTION SPECIALIST URINE ORDERABLES Performing Organization Address City/[facility]/ZIP Co de Phone Number [facility] [place] [address] * (ABNORMAL) Protein/Creatinine Ratio, urine (10/10/2022 9:02 AM EDT) Creatinine, Urine 86 mg/dL [facility] Protein, Urine 20(H) 0 - 12 mg/dL [facility] Protein / Creatinine Ratio, Urine 0.2 ratio [facility] Urine 10/10/2022 9:02 AM EDT 10/10/2022 9:08 AM EDT Narrative Resulting Agency Comment Spec In Lab Gurdeep L Bowling TARGET PROTECTION SPECIALIST URINE ORDERABLES Performing Organization Address City/[facility]/ZIP Co de Phone Number [facility] [place] [address] * (ABNORMAL) Differential, Automated (10/10/2022 8:22 AM EDT) Neutrophil % 61.5 % [facility] Neutrophil Absolute 5.49 1.70 - 6.10 x10(3)/ L [facility] Lymph % 18.9 % [facility] Lymphocytes Abs 1.7 0.9 - 3.2 x10(3)/ L [facility] Monocyte % 8.3 % [facility] Monocyte Abs 0.7 0.3 - 0.9 x10(3)/[facility] Eos % 10.1 % [facility] Eosinophils Abs 0.9(H) 0.0 - 0.4 x10(3)/[facility] Basophil % 1.0 % [facility] Baso Absolute 0.1 0.0 - 0.1 x10(3)/[facility] Immature Gran % 0.20 % [facility] Comment: Immature granulocytes(IG's)percentage and absolute count will include metamyelocytes, myelocytes, and promyelocytes. Blood smears from CBCs yielding IG's will be scanned manually for concordance. If this scan disagrees with the automated IG or if promyelocytes are noted, a manual differential will be performed. Immature Gran Absolute 0.02 0.00 - 0.04 x10(3)/[facility] Blood 10/10/2022 8:22 AM EDT 10/10/2022 8:26 AM EDT Narrative Resulting Agency Comment Spec In Lab Gurdeep Boston TARGET PROTECTION SPECIALIST HEMATOLOGY ORDERABLE S [facility] [place] [address] * (ABNORMAL) Hemogram (10/10/2022 8:22 AM EDT) White Blood Cell 8.9 4.0 - 9.5 x10(3)/[facility] Red Blood Cell 4.54(L) 4.58 - 5.54 x10(6)/[facility] Hemoglobin 13.8 13.7 - 16.5 g/dL [facility] Hematocrit 40.2(L) 40.5 - 48.5 % [facility] Mean Cell Volume 88.5 82.9 - 93.1 fL [facility] Mean Cell Hemoglobin 30.4 27.5 - 32.1 pg [facility] Mean Cell Hemoglobin Concentration 34.3 32.0 - 35.7 g/dL [facility] Platelet 275 145 - 357 x10(3)/mc L [facility] RDW Standard Deviation 42.9 36.0 - 45.0 fL [facility] RDW coefficient of variation 13.4 11.4 - 13.8 % [facility] Mean Platelet Volume 9.9 7.6 - 12.9 fL [facility] NRBC% auto 0.0 % [facility] NRBC Absolute 0.000 0.000 - 0.000 x10(3)/mc L [facility] Blood 10/10/2022 8:22 AM EDT 10/10/2022 8:26 AM EDT Narrative Resulting Agency Comment Spec In Lab Gurdeep Boston APRN HEMATOLOGY ORDERABLE S Performing Organization Address City/State/[place] Co de Phone Number [facility] [place] [address] * BKV Quant Blood (10/10/2022 8:22 AM EDT) BKV Blood Result Not Detected Not Detected IU/mL [facility] Comment: Indication for Study: Monitoring BKV DNA Analysis: The ester BKV test is an in vitro nucleic acid amplification tests using real-time polymerase chain reaction (PCR) assay for the quantitative measurement of BK virus (BKV) DNA in human EDTA plasma. Sample: EDTA plasma Method: ester BKV test used with the [employer] platform (Kirsten) Linear Range: 21.5 - 1.0 x 10^8 IU/mL (1.33 - 8.00 log IU/mL) Note: The Kirsten ester BKV assay has been cleared by the U.S. Food and Drug Administration for clinical testing. Blood 10/10/2022 8:22 AM EDT 10/10/2022 10:31 AM EDT Narrative Resulting Agency Comment Spec In Lab Gurdeep L Bowling TARGET PROTECTION SPECIALIST MOLECULAR ORDERABLES Performing Organization Address [facility]/ZIP Co de Phone Number [facility] [place] [address] * (ABNORMAL) Reticulocyte Count (10/10/2022 8:22 AM EDT) Reticulocyte % 2.6 0.7 - 2.6 % [facility] Retic Abs # 0.120 0.030 - 0.120 x10(6)/mcL [facility] Immature Retic% 17.8(H) 0.0 - 15.6 % [facility] Reticulated Hgb 34.4 31.3 - 40.2 pg [facility] Blood 10/10/2022 8:22 AM EDT 10/10/2022 8:26 AM EDT Narrative Resulting Agency Comment Spec In Lab Gurdeep Boston TARGET PROTECTION SPECIALIST HEMATOLOGY ORDERABLE S Performing Organization Address [facility]/[place] Co de Phone Number [facility] [place] [address] * (ABNORMAL) Comprehensive metabolic panel (non-fasting) (10/10/2022 8:22 AM EDT) Glucose 183 65 - 199 mg/dL [facility] Comment:Diabetes: >=200 mg/d L plus symptoms Blood Urea Nitrogen 15 10 - 20 mg/dL [facility] Creatinine 1.26 0.80 - 1.50 mg/dL [facility] Sodium 143 135 - 145 mmol/L [facility] Potassium 4.2 3.5 - 5.0 mmol/L [facility] Comment: Please note: ??Patients with WBC >100,000 may have falsely elevated Potassium levels. ??For accurate Potassium quantification in these patients send serum separator tube (gold top) for subsequent determinations. ??Contact the Clinical Chemistry Laboratory if there are any questions. Chloride 104 98 - 107 mmol/L [facility] Carbon Dioxide 28 22 - 31 mmol/L [facility] Anion Gap 11 5 - 15 mmol/L [facility] Calcium 9.9 8.5 - 10.5 mg/dL [facility] Protein, Total 7.2 6.1 - 8.0 g/dL [facility] Albumin 4.2 3.2 - 5.2 g/dL [facility] Aspartate Aminotransferase 22 0 - 39 unit/L [facility] Alanine Aminotransferase 22 0 - 55 unit/L [facility] Alkaline Phosphatase 84 40 - 130 unit/L [facility] Bilirubin, Total 2.0(H) 0.2 - 1.3 mg/dL [facility] Est Glomerular Filtration Rate 60 >=60 mL/min/1. 73 m?? [facility] Comment: This patient's estimated GFR [...] Agency Comment Spec In Lab Gurdeep Boston TARGET PROTECTION SPECIALIST CHEMISTRY ORDERABLES Performing Organization Address City/State/[place] Co de Phone Number [facility] [place] [address] * Lipid Panel (Reflex Direct LDL) (10/10/2022 8:22 AM EDT) Cholesterol, Total 99 mg/dL [facility] Comment: Lower Risk: <200 mg/dL Average Risk: 200-239 mg/dL Higher Risk: >yz=153 mg/dL Triglyceride 197 mg/dL [facility] Comment: Average Risk/Lower Risk: <150 mg/dL Borderline High Risk: 150-199 mg/dL High Risk: 200-499 mg/dL Very High Risk: >kt=980 mg/dL HDL Cholesterol 35 mg/dL [facility] Comment: Males: ?? Higher Risk: <40 mg/dL Females: ?? Higher Risk: <50 mg/dL LDL Cholesterol 25 mg/dL [facility] Comment: Lowest Risk: <100 mg/dL Lower Risk: 100-129 mg/dL Borderline High Risk: 130-159 mg/dL High Risk: 160-189 mg/dL Very High Risk: >dc=209 mg/dL Cholesterol/HDL Ratio 2.8 ratio [facility] Lipid Interpretation See Note [facility] Comment: Lipid management should be guided by a patient? s ASCVD risk, goals and preferences. ACC/AHA Guidelines recommend high intensity statin if clinical ASCVD or LDL greater than or equal to 190 mg/dL. http://[employer].com/DCB-TJM-Gknmnanol Adults aged 40-75 with LDL 70-189 mg/dL should have their 10 year ASCVD risk estimated with the ACC/AHA ASCVD risk network control operators supervisor http://tools.acc.org/QXWVH-Phud-Zrcvdiztz/ Statin should be discussed if risk greater [...] Agency Comment Spec In Lab Gurdeep Boston TARGET PROTECTION SPECIALIST CHEMISTRY ORDERABLES [facility] [place] [address] * Phosphorus (10/10/2022 8:22 AM EDT) Phosphorus 2.5 2.5 - 4.5 mg/dL [facility] Blood 10/10/2022 8:22 AM EDT 10/10/2022 8:26 AM EDT Narrative Resulting Agency Comment Spec In Lab Gurdeep Boston TARGET PROTECTION SPECIALIST CHEMISTRY ORDERABLES [facility] [place] [address] * (ABNORMAL) Magnesium (10/10/2022 8:22 AM EDT) Magnesium 0.64(L) 0.69 - 1.07 mmol/L [facility] Blood 10/10/2022 8:22 AM EDT 10/10/2022 8:26 AM EDT Narrative Resulting Agency Comment Spec In Lab Gurdeep Boston TARGET PROTECTION SPECIALIST CHEMISTRY ORDERABLES Performing Organization Address City/[facility]/ZIP Co de Phone Number [facility] [place] [address] * Uric acid (10/10/2022 8:22 AM EDT) Uric Acid 6.4 3.5 - 8.5 mg/dL [facility] Blood 10/10/2022 8:22 AM EDT 10/10/2022 8:26 AM EDT Narrative Resulting Agency Comment Spec In Lab Gurdeep Boston TARGET PROTECTION SPECIALIST CHEMISTRY ORDERABLES Performing Organization Address [facility]/[place] Co de Phone Number [facility] [place] [address] * Tacrolimus level (10/10/2022 8:22 AM EDT) Tacrolimus 6.2 ng/mL [facility] Comment: Trough therapeutic range is [...] Agency Comment Spec In Lab Gurdeep Boston TARGET PROTECTION SPECIALIST CHEMISTRY ORDERABLES Performing Organization Address City/[facility]/[place] [address] documented in this encounter Visit Diagnoses Diagnosis H/O kidney transplant Kidney replaced by transplant 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
--- OUTSIDE RECORDS SUMMARY | 2024-04-04 13:52 | XMS_ITS | Encounter Summary ---
Author Organization [facility]ly [facility] Address [facility] [place] [address] Care Team Providers Care Senior Living Sales Counselor Name Role Phone Urbano Jimenez Ray KIRBY Primary Care Provider [phone] Reason for Visit * Reason Onset Date Comments Medication Refill 10/13/2022 Encounter Details Date Type Department Care Team (Late st Contact Info) Description 10/13/2022 Refill [place] [address] Tal Eagle MD [facility] [place] [address] H/O kidney transplant; Aftercare following organ transplant; Hypertension secondary to other renal disorders Social History Tobacco Use Types Packs/Day Years Used Date Smoking Tobacco: Light Smoker Cigars Smokeless Tobacco: Never Comments:cigars, one weekly Alcohol Use Standard Drinks/Week Comments No 0 (1 standard drink = 0.6 oz pur e alcohol) [facility] Inpatient Questions Answer Date Recorded Does Anyone [...] 1:40 PM EDT Office Visit Cardiology at [address] [phone] Jay Urban MD [facility] [place] [address] 04/15/2024 10:00 AM EDT Hospital Encounter [place] [phone] Arrived documented as of this encounter Goals [...] disorders documented in this encounter Care Teams Senior Living Sales Counselor Relationship Specialty Start Date End Date Urbano Jimenez DO [address] [place] [address] PCP - General Family Medicine 03/18/22 Ruchi Valles RN Nurse Clinic Transplant Surgery 07/30/15 documented as of this encounter
--- OUTSIDE RECORDS SUMMARY | 2024-04-04 13:52 | XMS_ITS | Encounter Summary ---
[place] [address] Care Team Providers Care Marine Gear Keeper Name Role Phone Urbano Jimenez DO Primary Care Provider [phone] Encounter Details Date Type Department Care Team (Latest Contact Info) Description 10/23/2022 10:00 AM EDT - 10/23/2022 11:59 PM EDT Hospital Encounter Non-[place] [phone] Discharge Disposition: Home Social History Tobacco Use Types Packs/Day Years Used Date Smoking Tobacco: Light Smoker Cigars Smokeless Tobacco: Never Comments:cigars, one weekly Alcohol Use Standard Drinks/Week Comments No 0 (1 standard drink = 0.6 oz pur e alcohol) [facility] Inpatient Questions Answer Date Recorded [...] PM EDT Office Visit Cardiology at [address] [phone] Jay Urban MD [facility] [place] [address] 04/15/2024 10:00 AM EDT Hospital Encounter Non-[place] [phone] Arrived documented as of this encounter Goals [...] on filedocumented in this encounter Care Teams Marine Gear Keeper Relationship Specialty Start Date End Date Urbano Jimenez DO [address] [place] [address] PCP - General Family Medicine 03/18/22 Ruchi Valles RN Nurse Clinic Transplant Surgery 07/30/15 documented as of this encounter
--- OUTSIDE RECORDS SUMMARY | 2024-04-04 13:52 | XMS_ITS | Encounter Summary ---
[place] [address] Care Team Providers Care Behavioral Pediatrician Name Role Phone Urbano Jimenez DO Primary Care Provider [phone] Reason for Referral * Diagnostic Test (Routine) - Closed Specialty Diagnoses / Procedures Referred By Humberto t Referred To Contact Cardiology Diagnoses Cardiomyopathy, unspecified type Procedures Echocardiogram Transthoracic Shaq Damon MD [facility] [address] [facility] [place] [address] Referral ID Status Reason Start Date Expiration Date V isits Requested Visits Authorized [id number] Closed Specialty Service Requested 09/02/2022 09/02/2023 1 1 Reason for Visit * Diagnostic Test (Routine) - Closed Specialty Diagnoses / Procedures Referred By Humberto flor Referred To Contact Cardiology Diagnoses Cardiomyopathy, unspecified type Procedures Echocardiogram Transthoracic Shaq Damon MD [facility] [place] [address] [facility] [place] [address] Referral ID Status Reason Start Date Expiration Date V isits Requested Visits Authorized [id number] Closed Specialty Service Requested 09/02/2022 09/02/2023 1 1 Encounter Details Date Type Department Care Team (Late st Contact Info) Description 10/22/2022 11:44 AM EDT - 10/22/2022 11:59 PM EDT Hospital Encounter Non-Invasive Cardiology Lab [facility] [place] [address] Shaq Damon MD [facility] [place] [address] Cardiomyopathy, unspecified type Discharge Disposition: Home Social [...] transplant,Aftercare following organ transplant,Other complication of kidney transplant,senior living current use of immunosuppressive drug TAKE 2 [...] PM EDT Office Visit Cardiology at [address] [phone] Jay Urban MD [facility] [place] [address] 04/15/2024 10:00 AM EDT Hospital Encounter Non-Invasive Cardiology Lab [facility] [place] [address] Arrived documented as of this encounter Goals [...] COMPLETE (10/22/2022 1:00 PM EDT) EF 52 [facility] Anatomical Region Laterality Modality Cardiac Other 10/22/2022 11:5 9 AM EDT Narrative 10/22/2022 1:20 PM EDT ? Echocardiogram Report Name: ETHEL BOLDEN ?Study Date: 10/22/2022 11:59 AMBP: 128/68 mmHg ? Patient Location: 4A : 1950 ? Height: 180 cm ? Account: [id number] Age: 72 yrs ? Weight: 101 kg Gender: Male ?BSA: 2.2 m2 Ordering Physician: SHAQ DAMON Referring Physician: SHAQ DAMON Performed By: Leila Max RDCS Reason For Study: Cardiomyopathy Exam Location: [facility]. Interpretation Summary 1. Left ventricular function is [...] 02/19/2022, LV function visually appears similar. Procedure Complete-[id number]. Left ventricular strain. Satisfactory quality. Left Ventricle [...] Location: : 1950 Height: 180 cm Account: [id number] Age: 72 yrs Weight: 101 kg Gender: Male BSA: 2.2 m2 Ordering Physician: SHAQ DAMON Referring Physician: SHAQ DAMON Performed By: Leila Max RDCS Reason For Study: Cardiomyopathy Exam Location: [facility]. Interpretation Summary 1. Left ventricular function is [...] echo 02/19/2022, LV function visually appearssimilar. Procedure Complete-[id number]. Left ventricular strain. Satisfactory quality. Left Ventricle [...] type documented in this encounter Care Teams Behavioral Pediatrician Relationship Specialty Start Date End Date Urbano Jimenez DO [address] [place] [address] PCP - General Family Medicine 03/18/22 Ruchi Valles RN Nurse Clinic Transplant Surgery 07/30/15 documented as of this encounter
--- OUTSIDE RECORDS SUMMARY | 2024-04-04 13:53 | XMS_ITS | Encounter Summary ---
Author Organization [facility] [place] [address] Care Team Providers Care Barman Name Role Phone Urbano Jimenez Ray KIRBY Primary Care Provider [phone] Encounter Details Date Type Department Care Team (Late st Contact Info) Description 06/17/2022 Orders Only Cardiology at [address] [phone] [facility] [place] [address] Social History Tobacco Use Types Packs/Day Years [...] PM EDT Office Visit Cardiology at [address] [phone] [facility] [place] [address] 04/15/2024 10:00 AM EDT Hospital Encounter Non-Invasive [place] [address] Arrived documented as of this encounter Goals [...] on filedocumented in this encounter Care Teams Barman Relationship Specialty Start Date End Date Urbano Jimenez DO [address] [place] [address] PCP - General Family Medicine 03/18/22 Ruchi Valles RN Nurse Clinic Transplant Surgery 07/30/15 documented as of this encounter
--- OUTSIDE RECORDS SUMMARY | 2024-04-04 13:53 | XMS_ITS | Encounter Summary ---
[place] [address] Care Team Providers Care Special Events Assistant Name Role Phone Urbano Jimenez DO Primary Care Provider [phone] Encounter Details Date Type Department Care Team (Latest Contact Info) Description 09/16/2022 10:00 AM EDT - 09/16/2022 11:59 PM EDT Hospital Encounter Non-Invasive [place] [phone] Discharge Disposition: Home Social History Tobacco Use Types Packs/Day Years Used Date Smoking Tobacco: Light Smoker Cigars Smokeless Tobacco: Never Comments:cigars, one weekly Alcohol Use Standard Drinks/Week Comments No 0 (1 standard drink = 0.6 oz pur e alcohol) [facility] Inpatient Questions Answer Date Recorded Does Anyone [...] organ transplant,Other complication of kidney transplant,long term current use of immunosuppressive drug TAKE 2 [...] 1:40 PM EDT Office Visit Cardiology at [address] [phone] Jay Urban MD [facility] [address] 04/15/2024 10:00 AM EDT Hospital Encounter Non-Invasive [place] [phone] Arrived documented as of this encounter Goals Goal Patient Goal Type Associated Problems Recent Progress Patient-Stated? Author [facility] Medication Compliance and Understanding Patient Facing Action Plan On track( 017 10:41 AM EDT) Selena Scott, [facility] Note: Patient Goal: Clear hepatitis C Timeframe to meet goal: within 12 weeks of therapy documented as of this encounter Visit Diagnoses Not on filedocumented in this encounter Care Teams Special Events Assistant Relationship Specialty Start Date End Date Urbano Jimenez DO [address] [place] [address] PCP - General Family Medicine 03/18/22 Ruchi Valles RN Nurse Clinic Transplant Surgery 07/30/15 documented as of this encounter
--- OUTSIDE RECORDS SUMMARY | 2024-04-04 13:53 | XMS_ITS | Encounter Summary ---
Author Organization [facility] [place] [address] Care Team Providers Care Livestock Exhibitor Name Role Phone Urbano Jimenez Ray KIRBY Primary Care Provider Reason for Visit * Reason Comments Medication Refill Encounter Details Date Type Department Care Team (Late st Contact Info) Description 07/21/2022 Refill [place] [phone] Gurdeep Boston APRN [facility] [place] [address] Social History Tobacco Use Types Packs/Day Years [...] 1:40 PM EDT Office Visit Cardiology at [address] [phone] Jay Urban MD [facility] [place] [address] 04/15/2024 10:00 AM EDT Hospital Encounter Non-Invasive [place] [address] Arrived documented as of this encounter Goals [...] on filedocumented in this encounter Care Teams Livestock Exhibitor Relationship Specialty Start Date End Date Urbano Jimenez DO [facility] [place] [address] PCP - General Family Medicine 03/18/22 Ruchi Valles RN Nurse Clinic Transplant Surgery 07/30/15 documented as of this encounter
--- OUTSIDE RECORDS SUMMARY | 2024-04-04 13:53 | XMS_ITS | Encounter Summary ---
Author Organization [facility] [place] [address] Care Team Providers Care Doorperson Name Role Phone Urbano Jimenez Ray KIRBY Primary Care Provider [phone] Reason for Visit * Reason Comments Medication Refill Encounter Details Date Type Department Care Team (Late st Contact Info) Description 09/11/2022 Refill Solid [place] [phone] Gurdeep Boston APRN [facility] [place] [address] H/O kidney transplant; Aftercare following organ transplant; Other complication of kidney transplant; group home current use of immunosuppressive drug Social History [...] 1:40 PM EDT Office Visit Cardiology at [address] [phone] Jay Urban MD [facility] [place] [address] 04/15/2024 10:00 AM EDT Hospital Encounter [place] [address] Arrived documented as of this [...] organ transplant Other complication of kidney transplant group home current use of immunosuppressive drug documented in this encounter Care Teams Doorperson Relationship Specialty Start Date End Date Urbano Jimenez DO [address] [facility] [place] [address] PCP - General Family Medicine 03/18/22 Ruchi Valles RN Nurse Clinic Transplant Surgery 07/30/15 documented as of this encounter
--- OUTSIDE RECORDS SUMMARY | 2024-04-04 13:53 | XMS_ITS | Encounter Summary ---
[facility] [place] [address] Care Team Providers Care Machine Hamper Maker Name Role Phone Urbano Jimenez Ray KIRBY Primary Care Provider [phone] Reason for Visit * Reason Comments Medication Refill Encounter Details Date Type Department Care Team (Late st Contact Info) Description 09/01/2022 Refill Solid [place] [phone] Gurdeep Boston APRN [facility] [place] [address] H/O kidney transplant; Aftercare following organ transplant; Other complication of kidney transplant; skilled nursing current use of immunosuppressive drug Social History [...] 1:40 PM EDT Office Visit Cardiology at [address] [phone] Jay Urban MD [facility] [address] 04/15/2024 10:00 AM EDT Hospital Encounter Non-[place] [address] Arrived documented as of this [...] organ transplant Other complication of kidney transplant skilled nursing current use of immunosuppressive drug documented in this encounter Care Teams Machine Hamper Maker Relationship Specialty Start Date End Date Urbano Jimenez DO [address] [facility] [place] [address] PCP - General Family Medicine 03/18/22 Ruchi Valles RN Nurse Clinic Transplant Surgery 07/30/15 documented as of this encounter
--- OUTSIDE RECORDS SUMMARY | 2024-04-04 13:53 | XMS_ITS | Encounter Summary ---
Author Organization [facility] [place] [address] Care Team Providers Care Dumper Bailer Operator Name Role Phone Urbano Jimenez Ray KIRBY Primary Care Provider [phone] Encounter Details Date Type Department Care Team (Late st Contact Info) Description 09/12/2022 Ancillary Procedure Radiology Library at [facility] [place] [address] Tang Jin MD [facility] [place] [address] Social History Tobacco Use Types Packs/Day Years [...] PM EDT Office Visit Cardiology at [address] [phone] Jay Urban MD [facility] [place] [address] 04/15/2024 10:00 AM EDT Hospital Encounter Non-[place] [address] Arrived documented as of this encounter Goals [...] & Pelvis (09/12/2022 12:00 AM EST) Narrative [facility] - 09/13/2022 5:04 PM EST This exam is auto-finalizing. It's purpose is for storage only. Tang Jin MD IMG FILM LIBRARY ORD ERABLES Performing Organization Address City/State/[facility] Co de Phone Number [place], [place] documented in this encounter Visit Diagnoses Not on filedocumented in this encounter Care Teams Dumper Bailer Operator Relationship Specialty Start Date End Date Urbano Jimenez DO [address] [place] [address] PCP - General Family Medicine 03/18/22 Ruchi Valles RN Nurse Clinic Transplant Surgery 07/30/15 documented as of this encounter
--- OUTSIDE RECORDS SUMMARY | 2024-04-04 13:53 | XMS_ITS | Encounter Summary ---
[place] [address] Care Team Providers Care Senior Quantity Surveyor Name Role Phone Urbano Jimenez DO Primary Care Provider [phone] Reason for Referral * Consultation (Routine) - Closed Specialty Diagnoses / Procedures Referred By Humberto flor Referred To Contact General Surgery Diagnoses Diverticulitis Nelson Jason MD [facility] [place] [address] [facility] [address] [place] [phone] Referral ID Status Reason Start Date Expiration Date V isits Requested Visits Authorized [id number] Closed Consult, Test & Treat 09/19/2022 09/19/2023 1 1 Reason for Visit * Auth/Cert (Routine) Specialty Diagnoses / Procedures Referred By Humberto flor Referred To Contact Diagnoses Diverticulitis Micro perf with diverticulitis Procedures emerg Asa Santizo MD [address] [place] [address] TELE-CRITICAL [place], [place] [id number] [place] [address] Referral ID Status Reason Start Date Expiration Date Visits Re quested Visits Authorized [id number] 1 1 Encounter Details Date Type Department Care Team (Latest Contact Info) Description 09/14/2022 7:23 PM EDT - 09/19/2022 3:46 PM EDT Hospital Encounter Adolescent Unit Level 2 [place] [address] Asa Skaggs MD [address] [place], [place] [address] [address] Dyan Sears MD [facility] [place] [address] running specialist current use of immunosuppressive drug ; Diverticulitis [...] increase 08/12/2016 Allergies: Allergies Allergen Reactions ??? [place] Operations/Procedures: None HPI: As written by Miguel [...] revision with Urology (05/2016). He presents to [facility] on 09/14/2022 as a transfer from OSH [...] an operation, and was subsequently transferred to [facility]. ?? He reports that his pain has [...] who have questions please contact the health child caregiver private home that requested your imaging first. Discharge Physical [...] CHARLES[place]ITO 10/10/2022 10:00 AM Tal Eagle MD [facility] SMITH 2M [facility] 10/10/2022 12:00 PM Cathie Yeager MD [facility] SURG [facility] 10/22/2022 12:00 PM ECHO REGULAR MH NI Card [facility] 10/22/2022 2:30 PM Byron Brown MD [address] Outpatient Services/Studies: Tacrolimus level Standing Status: [...] Department Center 10/22/2022 12:00 PM ECHO REGULAR [facility] 10/22/2022 2:30 PM Byron Brown MD [address] To Follow Up After Discharge: - [...] 1. You will have follow-up appointments at [facility] as indicated in the ???Future Appointments and [...] on the next business day. Please call [phone] if you do not hear from us by that time, as your timely follow-up is very important to us. Your care was managed by the Trauma and Acute Care Surgery Team at [facility]. If you have any questions or concerns, please feel free to contact us. Provider Contact Information: General Surgery: [facility] (after business hours): CC: Primary Care Physician: DO General Whitney Abdullahi None Your care was managed by the Trauma and Acute Care Surgery Team at [facility]. If you have any questions or concerns, please feel free to contact us. Provider Contact Information: General Surgery Scheduling: Nurses line for questions: [facility] (after business hours): CC: Urbano A MyrDO Aurora boyd APRN Signed: Nelson Jason MD Department of Surgery 09/19/2022 Acute Care Surgery Pager [phone] documented in this encounter Discharge Instructions * [...] Department Center 10/22/2022 12:00 PM ECHO REGULAR [facility] Card [facility] 10/22/2022 2:30 PM Byron Brown MD [facility] CARD 4A [facility] To Follow Up After Discharge: - Complete [...] 1. You will have follow-up appointments at [facility] as indicated in the ???Future Appointments and [...] on the next business day. Please call [phone] if you do not hear from us by that time, as your timely follow-up is very important to us. Your care was managed by the Trauma and Acute Care Surgery Team at [facility]. If you have any questions or concerns, please feel free to contact us. Provider Contact Information: General Surgery: [facility] (after business hours): CC: Primary Care Physician: Urbano Jimenez DO * Attachments The following attachments cannot be sent through Care Everywhere. * Diverticulitis ([place] Islander) * Diverticulosis and Diverticulitis: General Info ([place]) * GI Tract: Lower: Anatomy Sketch ([place]) * Acute Cholecystitis: General Info ([place]er) documented in this encounter Medications at Time [...] pt need to f-u with surgeon or LINUX DEVELOPER (please indicate reason if attending provider): LINUX DEVELOPER How soon should ACS f/u be? 2-4 [...] and resumed renal diet. This AM had f1hrvocg, multiple yogurts for lunchtime, packet of miralax [...] revision with Urology (05/2016) who presented to [facility] on 09/12 with abdominal pain, found to have acute diverticulitis with microperforation, transferred to [facility] on 09/14/2022. Procedures: - None 24 Hour Events: - Had worsened abdominal pain yesterday, with concern for ?peritonitis. Repeat CT A/P was performedwhich revealed relatively unchanged sigmoid diverticulitis - Repeat abdominal exam overnight was [id number] - No acute events overnight Secondary Issues: [...] and symmetric movement, normal range of motion. [facility] Labs: Recent Labs 09/18/22 0105 09/17/22 [...] revision with Urology (05/2016) who presented to [facility] on 09/12 with abdominal pain, found to have acute diverticulitis with microperforation, transferred to [facility] on 09/14/2022. The patient was seen at [...] Jason MD 09/18/2022 Acute Care Surgery Pager [phone] Associated attestation - Dyan Sears MD - [...] revision with Urology (05/2016) who presented to [facility] on 09/12 with abdominal pain, found to have acute diverticulitis with microperforation, transferred to [facility] on 09/14/2022. Procedures: - None 24 Hour [...] revision with Urology (05/2016) who presented to [facility] on 09/12 with abdominal pain, found to have acute diverticulitis with microperforation, transferred to [facility] on 09/14/2022. The patient was seen at [...] Perkins MD 09/17/2022 Acute Care Surgery Pager [phone] Associated attestation - Dyan Sears MD - [...] urinal. Pt passing flatus.No BMs this shift. shipping specialist to bedside to educate if surgical intervention [...] revision with Urology (05/2016) who presented to [facility] on 09/12 with abdominal pain, found to have acute diverticulitis with microperforation, transferred to [facility] on 09/14/2022 due to hx kidney transplant. [...] revision with Urology (05/2016) who presented to [facility] on 09/12 with abdominal pain, found to have acute diverticulitis with microperforation, transferred to [facility] on 09/14/2022 due to hx kidney transplant. [...] Sears MD 09/16/2022 Acute Care Surgery Pager [phone] Associated attestation - Dyan Sears MD - [...] urinal. Pt passing flatus.No BMs this shift. shipping specialist to bedside to educate if surgical intervention [...] with Urology (05/2016) who was admitted to [facility] on 09/14/2022 for diverticulitis with microperforation. Problem [...] with Urology (05/2016) who was admitted to [facility] on 09/14/2022 for acute mild diverticulitis of [...] Perkins MD 09/15/2022 Acute Care Surgery Pager [phone] Associated attestation - Dyan Sears MD - [...] operative intervention on this hospitalization. Will have shipping specialist see him in consultation for educational purposes.Continue [...] & Physical Patient Name: Cody Bolden MR#: [id number] : 1950 Admission Date: 09/14/2022 Indication for [...] revision with Urology (05/2016). He presents to [facility] on 09/14/2022 as a transfer from OSH [...] an operation, and was subsequently transferred to [facility]. He reports that his pain has improved [...] EXAM [facility] PROV N/A 05/10/2020 FLUOROSCOPY (WRVU 0.17) performed by Joseph Ang MD at [facility] MAIN OR ? ? PRG DAVEY REAL TIME IMG 2D W PRB IMG ACQUIS I&R N/A 07/15/2022 TRANSESOPHAGEAL ECHOCARDIOGRAM (WRVU 2.55) performed by Ruchi Park MD at [facility] MAIN OR ??? PRO ANASTOMOSIS, AV, ANY SITE Left 05/09/2015 AV FISTULA CREATION, DIRECT HEMODIALYSIS, ANY SITE, EG ASHWINI FISTULA UPPER EXTREMITY performed by Que Amaro MD at [facility] MAIN OR ? ? PRO ARTHROPLASTY KNEE CONDYLE & PLATEAU MEDIAL & LAT COMPARTMENTS Right 11/25/2017 TOTAL KNEE ARTHROPLASTY (WRVU 20.72) performed by Breezy Dale MD at [facility] OR ??? PRO CYSTOURETHROSCOPY, URETER CATHETER Left 06/17/2018 CYSTO, RETROGRADE, URETEROPYELOGRAPHY (WRVU 2.37) performed by Edinson Grider III[facility] ??? PRO LAMINEC/FACETECT/FORAMIN, LUMBAR 1 SEG N/A 05/10/2020 LAMINECTOMY, FACETECTOMY & FORAMINOTOMY,LUMBAR, ONE LEVEL (WRVU 15.37) performed by Joseph Ang MD at [facility] OR ??? PRO LAMINOTOMY, LUMBAR DISK, 1 INTRSP N/A 05/10/2020 LAMINOTOMY, DECOMPRESSION, FORAMINOTOMY, LUMBAR (WRVU 13.18) performed by Joseph Ang MD at [facility] OR ??? PRO MICROSURG TECHNIQUES, REQ OPER MICROSCOPE N/A 05/10/2020 MICROSCOPE USE (WRVU 3.46) performed by Joseph Ang MD at [facility] OR ??? PRO PERQ CLSR TCAT L ATR APNDGE W/ENDOCARDIAL IMPLNT N/A 05/08/2022 @PERQ TRANSCATH CLOSURE LEFT ATRIAL APPENDAGE W ENDOCARDIAL IMPLANT, INC RAD S&I (WRVU 14) performed by Tal Diana MD at [facility] CATH LABS ??? PRO REIMPLANT URETER, SINGLE URETER Left 05/20/2016 @URETERONEOCYSTOSTOMY ANASTOMOSIS OF SINGLE URETER TO BLADDER performed by Santosh Arredondo MD at [facility] OR ??? PRO REIMPLANT URETER, SINGLE URETER N/A 05/20/2016 @URETERONEOCYSTOSTOMY ANASTOMOSIS OF SINGLE URETER TO BLADDER performed by Qeu Amaro MD at [facility] OR ??? PRO TRANSPLANT, PREP CADAVER RENAL GRAFT N/A 09/16/2015 @PREPARATION CADAVERIC RENAL ALLOGRAFT performed by Franko Larkin MD at [facility] OR ??? PRO TRANSPLANTATION OF KIDNEY N/A 09/16/2015 @KIDNEY TRANSPLANT, WITHOUT RECIPIENT NEPHRECTOMY performed by Franko Larkin MD at [facility] OR ??? TISSUE TRANSFER kidney ??? US RENAL TRANSPLANT LEFT Left 01/31/2019 US Renal Transplant Left 01/31/2019 [facility] RAD ULTRASOUND ??? US RENAL TRANSPLANT LEFT Left 02/07/2019 US Renal Transplant Left 02/07/2019 [facility] RAD ULTRASOUND Home Medications: Medications Prior to [...] 12 Unknown Allergies: Allergies Allergen Reactions ??? [place] Past Family History: Family History Problem Relation [...] 09/14/2022 Acute Care Surgery Service Team pager [phone] Acute Care Surgery Attending Addendum: I have seen this patient and agree with the above note with the following additions and/or modifications. This is a 72-year-old gentleman who was transferred from [facility] with acute diverticulitis. He presented to that [...] None Patient is insured through: Primary Insurance: [email or web address] MANAGED MEDICARE Payor: [employer] MANAGED MEDICARE / Plan: [employer] MANAGED MEDICARE / Product Type: *No Product type* / Secondary Insurance: COMMERCIAL GENERIC Prescription Coverage: Yes This plan was formulated with input from patient, and team. All are in agreement with plan. Mark BELLO, RN Case Management [phone] * Plan of Care - Margarita Smiley [...] None Patient is insured through: Primary Insurance: [employer] MEDICARE Payor: [employer] MEDICARE / Plan: [employer] MEDICARE / Product Type: *No Product type* / Secondary Insurance: COMMERCIAL GENERIC Prescription Coverage: Yes This plan was formulated with input from patient, and team. All are in agreement with plan. Mark BELLO, RN Case Management [phone] * Plan of Care - Jo-Ann Chen [...] from the original note were not included. shipping specialist Note: Ostomy team was messaged by Dr. Perkins to request that pt get a stoma site due to worsening of symptoms, enough to warrant a CT Scan this afternoon. I reintroduced myself to pt and reviewed the two types of fecal ostomies. 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 All are in agreement with plan. Mark BELLO, RN CM Case Management [phone] * Consult Note - Mirta Fernandez RN - 09/16/2022 2:00 PM EDT shipping specialist Note: Stopped by at the request of [...] DME: none Home Address confirmed as: [address] [address] Social & Family Supports: Extended Emergency Contact Information Primary Emergency Contact: Mara Bolden Address: [address] [place] [id number] [address] Relation: Spouse Current Care Provided by: [...] Specific Information: n/a Health/Prescription Coverage: Primary Insurance: [employer] MEDICARE Payor: [employer] MEDICARE / Plan: [employer] MANAGED MEDICARE / Product Type: *No Product type* / Secondary Insurance: COMMERCIAL GENERIC ONLY if patient has Medicare A&B - Does this patient have secondary insurance?: Yes ; Prescription Coverage: Yes Preferred Pharmacy: [id number] [place], [place] - [address] [place] [address] AT [facility] [address] [phone] [facility] - [place], [place] - [address] [facility], [place]) [address] [facility] [address] [facility] - [facility] [address] [facility] [address] [facility] [address] [facility] - [place], [place] - [address] [facility] [address] [place] [address] [facility] [address] [facility], [place] - [address] [place] [address] [place] Status: Patient is a : Yes Are you enrolled in the VA for your healthcare?: Yes Are you here under your VA benefit?: No Primary Care Provider confirmed: Urbano Jimenez DO [phone] Patient/Caregiver Goals of Treatment: feel better Potential [...] Fernandez RN - 09/15/2022 3:00 PM EDT shipping specialist Note: Stopped by to stoma site pt [...] micro-perforation. He was then sent over to [facility] and is being managed non-conservatively. Patient denies [...] 0.17) performed by Joseph Ang MD at [facility] OR ? ? PRG DAVEY REAL TIME IMG 2D W PRB IMG ACQUIS I&R N/A 07/15/2022 TRANSESOPHAGEAL ECHOCARDIOGRAM (WRVU 2.55) performed by Ruchi Park MD at [facility] OR ??? PRO ANASTOMOSIS, AV, ANY SITE Left 05/09/2015 AV FISTULA CREATION, DIRECT HEMODIALYSIS, ANY SITE, EG ASHWINI FISTULA UPPER EXTREMITY performed by Que Amaro MD at [facility] OR ? ? PRO ARTHROPLASTY KNEE CONDYLE & PLATEAU MEDIAL & LAT COMPARTMENTS Right 11/25/2017 TOTAL KNEE ARTHROPLASTY (WRVU 20.72) performed by Breezy Dale MD at [facility] OR ??? PRO CYSTOURETHROSCOPY, URETER CATHETER Left 06/17/2018 CYSTO, RETROGRADE, URETEROPYELOGRAPHY (WRVU 2.37) performed by Edinson Grider III, [facility] ??? PRO LAMINEC/FACETECT/FORAMIN, LUMBAR 1 SEG N/A 05/10/2020 LAMINECTOMY, FACETECTOMY & FORAMINOTOMY,LUMBAR, ONE LEVEL (WRVU 15.37) performed by Joseph Ang MD at [facility] OR ??? PRO LAMINOTOMY, LUMBAR DISK, 1 INTRSP N/A 05/10/2020 LAMINOTOMY, DECOMPRESSION, FORAMINOTOMY, LUMBAR (WRVU 13.18) performed by Joseph Ang MD at [facility] OR ??? PRO MICROSURG TECHNIQUES, REQ OPER MICROSCOPE N/A 05/10/2020 MICROSCOPE USE (WRVU 3.46) performed by Joseph Ang MD at [facility] OR ??? PRO PERQ CLSR TCAT L ATR APNDGE W/ENDOCARDIAL IMPLNT N/A 05/08/2022 @PERQ TRANSCATH CLOSURE LEFT ATRIAL APPENDAGE W ENDOCARDIAL IMPLANT, INC RAD S&I (WRVU 14) performed by Tal Diana MD at [facility] CATH LABS ??? PRO REIMPLANT URETER, SINGLE URETER Left 05/20/2016 @URETERONEOCYSTOSTOMY ANASTOMOSIS OF SINGLE URETER TO BLADDER performed by Santosh Arredondo MD at [facility] OR ??? PRO REIMPLANT URETER, SINGLE URETER N/A 05/20/2016 @URETERONEOCYSTOSTOMY ANASTOMOSIS OF SINGLE URETER TO BLADDER performed by Que Amaro MD at [facility] OR ??? PRO TRANSPLANT, PREP CADAVER RENAL GRAFT N/A 09/16/2015 @PREPARATION CADAVERIC RENAL ALLOGRAFT performed by Franko Larkin MD at [facility] OR ??? PRO TRANSPLANTATION OF KIDNEY N/A 09/16/2015 @KIDNEY TRANSPLANT, WITHOUT RECIPIENT NEPHRECTOMY performed by Franko Larkin MD at [facility] OR ??? TISSUE TRANSFER kidney ??? US RENAL TRANSPLANT LEFT Left 01/31/2019 US Renal Transplant Left 01/31/2019 [facility] RAD ULTRASOUND ??? US RENAL TRANSPLANT LEFT Left 02/07/2019 US Renal Transplant Left 02/07/2019 [facility] RAD ULTRASOUND Current Facility-Administered Medications Medication Dose [...] Units 1-4 Units Subcutaneous Q4H [facility] Miguel Rogers MD ??? levothyroxine (Synthroid) tablet [...] 50 mg 50 mg Oral BID Miguel Roegrs MD 50 mg at 09/15/22952 ??? amLODIPine [...] at 09/15/22 0953 Allergies Allergen Reactions ??? [place] Family History Problem Relation Age of Onset [...] revision with Urology (05/2016). He presents to [facility] on 09/14/2022 as a transfer from OSH [...] continue to follow patient. Fozia White [facility] #[id number] I reviewed all of the above findings and assessment of Dr. White, edited the above note to reflect my assessment and examination and formulated the recommendations which accurately reflect mine. 25 of35 Min. in direct face to face student counsellor. documented in this encounter Plan of Treatment Upcoming Encounters Date Type Department Care Team (Late st Contact Info) Description 04/08/2024 1:40 PM EDT Office Visit Cardiology at [address] [phone] Jay Urban MD [facility] [place] [address] 04/15/2024 10:00 AM EDT Hospital Encounter Non-In[place] [address] Arrived Scheduled Referrals Name Type Priority Associated Diagnoses Order Schedule Referral to Colorectal Surgery Outpatient Referral Routine Diverticulitis Ordered: 09/19/2022 documented as of this encounter Goals Goal Patient Goal Type Associated Problems Recent Progress Patient-Stated? Author [facility] Medication Compliance and Understanding Patient [...] Glucose, POC 189 65 - 199 mg/dL [facility] Comment: Supplemental ranges: <140 mg/dL before meals <180 mg/dL all other times of the day Blood 09/19/2022 11:1 6 AM EDT 09/19/2022 11:16 AM EDT Dyan Sears MD POINT OF CARE TEST O RDERABLES [facility] [address] * POCT Glucose (09/19/2022 7:58 AM EDT) Glucose, POC 127 65 - 199 mg/dL [facility] Comment: Supplemental ranges: <140 mg/dL before meals <180 mg/dL all other times of the day Blood 09/19/2022 7:58 AM EDT 09/19/2022 7:58 AM EDT Dyan Sears MD POINT OF CARE TEST O TED Performing Organization Address [facility] Co de Phone Number [facility] [place] [address] * Tacrolimus level (09/19/2022 7:50 AM EDT) Tacrolimus 11.3 ng/mL [facility] Comment: Trough therapeutic range is 3-15 [...] MD CHEMISTRY ORDERAB LES Performing Organization Address [facility] Co de Phone Number [facility] [place] [address] * POCT Glucose (09/19/2022 4:04 AM EDT) Glucose, POC 138 65 - 199 mg/dL [facility] Comment: Supplemental ranges: <140 mg/dL before meals <180 mg/dL all other times of the day Blood 09/19/2022 4:04 AM EDT 09/19/2022 4:04 AM EDT Dyan Sears MD POINT OF C[place] [address] * (ABNORMAL) Differential, Automated (09/19/2022 12:51 AM EDT) Neutrophil % 68.4 % [facility] Neutrophil Absolute 5.95 1.70 - 6.10 x10(3)/mc L [facility] Lymph % 16.4 % [facility] Lymphocytes Abs 1.4 0.9 - 3.2 x10(3)/mc L [facility] Monocyte % 8.5 % [facility] Monocyte Abs 0.7 0.3 - 0.9 x10(3)/mc L [facility] Eos % 6.2 % [facility] Eosinophils Abs 0.5(H) 0.0 - 0.4 x10(3)/mc L [facility] Basophil % 0.3 % [facility] Baso Absolute 0.0 0.0 - 0.1 x10(3)/mc L [facility] [...] Absolute 0.02 0.00 - 0.04 x10(3)/mc L [facility] Blood 09/19/2022 12:5 1 AM EDT 09/19/2022 1:03 AM EDT Narrative Resulting Agency Comment Spec In Lab Miguel Rogers MD [place] [address] * (ABNORMAL) Hemogram (09/19/2022 12:51 AM EDT) White Blood Cell 8.7 4.0 - 9.5 x10(3)/mc L [facility] Red Blood Cell 4.36(L) 4.58 - 5.54 x10(6)/mc L [facility] Hemoglobin 13.1(L) 13.7 - 16.5 g/dL [facility] Hematocrit 38.2(L) 40.5 - 48.5 % [facility] Mean Cell Volume 87.6 82.9 - 93.1 fL [facility] Mean Cell Hemoglobin 30.0 27.5 - 32.1 pg [facility] Mean Cell Hemoglobin Concentration 34.3 32.0 - 35.7 g/dL [facility] Platelet 247 145 - 357 x10(3)/mc L [facility] RDW Standard Deviation 41.2 36.0 - 45.0 fL [facility] RDW coefficient of variation 12.8 11.4 - 13.8 % [facility] Mean Platelet Volume 9.3 7.6 - 12.9 fL [facility] NRBC% auto 0.0 % [facility] NRBC Absolute 0.000 0.000 - 0.000 x10(3)/mc L [facility] Blood 09/19/2022 12:5 1 AM EDT 09/19/2022 1:03 AM EDT Narrative Resulting Agency Comment Spec In Lab Miguel Rogers MD HEMATOLOGY ORDERABLE S [facility] [place] [address] * Phosphorus (09/19/2022 12:51 AM EDT) Phosphorus 2.6 2.5 - 4.5 mg/dL [facility] Blood 09/19/2022 12:5 1 AM EDT 09/19/2022 1:03 AM EDT Narrative Resulting Agency Comment Spec In Lab Asa Skaggs MD CHEMISTRY ORDERABLES [facility] [place] [address] * (ABNORMAL) Magnesium (09/19/2022 12:51 AM EDT) Magnesium 0.62(L) 0.69 - 1.07 mmol/L [facility] Blood 09/19/2022 12:5 1 AM EDT 09/19/2022 1:03 AM EDT Narrative Resulting Agency Comment Spec In Lab Asa Skaggs MD CHEMISTRY ORDERABLES [facility] [place] [address] * (ABNORMAL) Basic Metabolic Panel (non-fasting) (09/19/2022 12:51 AM EDT) Glucose 143 65 - 199 mg/dL [facility] Comment:Diabetes: >=200 mg/d L plus symptoms Blood Urea Nitrogen 13 10 - 20 mg/dL [facility] Creatinine 1.25 0.80 - 1.50 mg/dL [facility] Sodium 140 135 - 145 mmol/L [facility] Potassium 3.2(L) 3.5 - 5.0 mmol/L [facility] Comment: Please note: ??Patients with WBC >100,000 may have falsely elevated Potassium levels. ??For accurate Potassium quantification in these patients send serum separator tube (gold top) for subsequent determinations. ??Contact the Clinical Chemistry Laboratory if there are any questions. Chloride 104 98 - 107 mmol/L [facility] Carbon Dioxide 26 22 - 31 mmol/L [facility] Anion Gap 10 5 - 15 mmol/L [facility] Calcium 9.0 8.5 - 10.5 mg/dL [facility] Est Glomerular [...] Skaggs MD CHEMISTRY ORDERABLES Performing Organization Address [facility] Co de Phone Number [facility] [place] [address] * POCT Glucose (09/18/2022 11:48 PM EDT) Glucose, POC 143 65 - 199 mg/dL [facility] Comment: Supplemental ranges: <140 mg/dL before meals <180 mg/dL all other times of the day Blood 09/18/2022 11:4 8 PM EDT 09/18/2022 11:48 PM EDT Dyan Sears MD POINT OF CARE TEST O RDERABLES Performing Organization Address [facility] Co de Phone Number [facility] [place] [address] * POCT Glucose (09/18/2022 7:42 PM EDT) Glucose, POC 180 65 - 199 mg/dL [facility] Comment: Supplemental ranges: <140 mg/dL before meals <180 mg/dL all other times of the day Blood 09/18/2022 7:42 PM EDT 09/18/2022 7:42 PM EDT Dyan Sears MD POINT OF CARE TEST O RDERABLES Performing Organization Address [facility] Co de Phone Number [facility] [place] [address] * POCT Glucose (09/18/2022 4:20 PM EDT) Glucose, POC 188 65 - 199 mg/dL [facility] Comment: Supplemental ranges: <140 mg/dL before meals <180 mg/dL all other times of the day Blood 09/18/2022 4:20 PM EDT 09/18/2022 4:20 PM EDT Dyan Sears MD POINT OF CARE TEST O RDERABLES Performing Organization Address City/[facility]/ZIP Co de Phone Number [facility] [place] [address] * POCT Glucose (09/18/2022 12:14 PM EDT) Glucose, POC 183 65 - 199 mg/dL [facility] Comment: Supplemental ranges: <140 mg/dL before meals <180 mg/dL all other times of the day Blood 09/18/2022 12:1 4 PM EDT 09/18/2022 12:14 PM EDT Dyan Sears MD POINT OF CARE TEST O RDERABLES Performing Organization Address [facility] Co de Phone Number [facility] [place] [address] * POCT Glucose (09/18/2022 7:43 AM EDT) Glucose, POC 128 65 - 199 mg/dL [facility] Comment: Supplemental ranges: <140 mg/dL before meals <180 mg/dL all other times of the day Blood 09/18/2022 7:43 AM EDT 09/18/2022 7:43 AM EDT Dyan Sears MD POINT OF CARE TEST O RDERABG Performing Organization Address [facility] Co de Phone Number [facility] [place] [address] * POCT Glucose (09/18/2022 3:44 AM EDT) Glucose, POC 119 65 - 199 mg/dL [facility] Comment: Supplemental ranges: <140 mg/dL before meals <180 mg/dL all other times of the day Blood 09/18/2022 3:44 AM EDT 09/18/2022 3:44 AM EDT Dyan Sears MD POINT OF CARE TEST O RDERABG Performing Organization Address City/[facility]/[place] [address] * (ABNORMAL) CRP, acute inflammation (09/18/2022 1:05 AM EDT) Pathologist [facility] C-Reactive Protein 63.8(H) <=4.9 mg/L [facility] Blood Venous Draw / Unknown 09/18/2022 1:05 AM EDT 09/18/2022 1:22 AM EDT Narrative Resulting Agency Comment Spec In Lab Janet Perkins MD [place] [address] * (ABNORMAL) Differential, Automated (09/18/2022 1:05 AM EDT) [facility] Neutrophil % 74.0 % [facility] Neutrophil Absolute 6.72(H) 1.70 - 6.10 x10(3)/mc L [facility] Lymph % 10.2 % [facility] Lymphocytes Abs 0.9 0.9 - 3.2 x10(3)/mc L [facility] Monocyte % 9.7 % [facility] Monocyte Abs 0.9 0.3 - 0.9 x10(3)/mc L [facility] Eos % 5.4 % [facility] Eosinophils Abs 0.5(H) 0.0 - 0.4 x10(3)/mc L [facility] Basophil % 0.3 % [facility] Baso Absolute 0.0 0.0 - 0.1 x10(3)/mc L [facility] Immature Gran % 0.40 % [facility] Comment: Immature granulocytes(IG's)percentage and absolute count will include metamyelocytes, myelocytes, and promyelocytes. Blood smears from CBCs yielding IG's will be scanned manually for concordance. If this scan disagrees with the automated IG or if promyelocytes are noted, a manual differential will be performed. Immature Gran Absolute 0.04 0.00 - 0.04 x10(3)/mc L [facility] Blood 09/18/2022 1:05 AM EDT 09/18/2022 1:17 AM EDT Narrative Resulting Agency Comment Spec In Lab Miguel Rogers MD HEMATOLOGY ORDERABLE S Performing Organization Address City/[facility]/ZIP Co de Phone Number [facility] [place] [address] * (ABNORMAL) Hemogram (09/18/2022 1:05 AM EDT) White Blood Cell 9.1 4.0 - 9.5 x10(3)/mc L [facility] Red Blood Cell 4.48(L) 4.58 - 5.54 x10(6)/mc L [facility] Hemoglobin 13.4(L) 13.7 - 16.5 g/dL [facility] Hematocrit 38.0(L) 40.5 - 48.5 % [facility] Mean Cell Volume 84.8 82.9 - 93.1 fL [facility] Mean Cell Hemoglobin 29.9 27.5 - 32.1 pg [facility] Mean Cell Hemoglobin Concentration 35.3 32.0 - 35.7 g/dL [facility] Platelet 261 145 - 357 x10(3)/mc L [facility] RDW Standard Deviation 38.8 36.0 - 45.0 fL [facility] RDW coefficient of variation 12.8 11.4 - 13.8 % [facility] Mean Platelet Volume 9.3 7.6 - 12.9 fL [facility] NRBC% auto 0.0 % [facility] NRBC Absolute 0.000 0.000 - 0.000 x10(3)/mc L [facility] Blood 09/18/2022 1:05 AM EDT 09/18/2022 1:17 AM EDT Narrative Resulting Agency Comment Spec In Lab Miguel Rogers MD HEMATOLOGY ORDERABLE S Performing Organization Address [facility] Co de Phone Number [facility] [place] [address] * (ABNORMAL) Phosphorus (09/18/2022 1:05 AM EDT) Phosphorus 2.1(L) 2.5 - 4.5 mg/dL [facility] Blood 09/18/2022 1:05 AM EDT 09/18/2022 1:17 AM EDT Narrative Resulting Agency Comment Spec In Lab Asa Skaggs MD CHEMISTRY ORDERABLES Performing Organization Address City/[facility] Co de Phone Number [facility] [place] [address] * (ABNORMAL) Magnesium (09/18/2022 1:05 AM EDT) Magnesium 0.47(L) 0.69 - 1.07 mmol/L [facility] Blood 09/18/2022 1:05 AM EDT 09/18/2022 1:17 AM EDT Narrative Resulting Agency Comment Spec In Lab Asa Skaggs MD CHEMISTRY ORDERABLES Performing Organization Address [facility] de Phone Number [facility] [place] [address] * (ABNORMAL) Basic Metabolic Panel (non-fasting) (09/18/2022 1:05 AM EDT) Glucose 119 65 - 199 mg/dL [facility] Comment:Diabetes: >=200 mg/d L plus symptoms Blood Urea Nitrogen 12 10 - 20 mg/dL [facility] Creatinine 1.13 0.80 - 1.50 mg/dL [facility] Sodium 142 135 - 145 mmol/L [facility] Potassium 3.3(L) 3.5 - 5.0 mmol/L [facility] Comment: Please note: ??Patients with WBC >100,000 may have falsely elevated Potassium levels. ??For accurate Potassium quantification in these patients send serum separator tube (gold top) for subsequent determinations. ??Contact the Clinical Chemistry Laboratory if there are any questions. Chloride 104 98 - 107 mmol/L [facility] Carbon Dioxide 25 22 - 31 mmol/L [facility] Anion Gap 13 5 - 15 mmol/L [facility] Calcium 8.9 8.5 - 10.5 mg/dL [facility] Est Glomerular Filtration Rate 68 >=60 mL/min/1. 73 m?? [facility] Comment: This patient's estimated GFR [...] Skaggs MD CHEMISTRY ORDERABLES Performing Organization Address City/[facility]/ZIP Co de Phone Number [facility] [place] [address] * POCT Glucose (09/17/2022 11:18 PM EDT) Glucose, POC 127 65 - 199 mg/dL [facility] Comment: Supplemental ranges: <140 mg/dL before meals <180 mg/dL all other times of the day Blood 09/17/2022 11:1 8 PM EDT 09/17/2022 11:18 PM EDT Dyan Sears MD POINT OF CARE TEST O RDERABLES Performing Organization Address City/[facility]/ZIP Co de Phone Number [facility] [place] [address] * (ABNORMAL) POCT Glucose (09/17/2022 7:10 PM EDT) Glucose, POC 201(H) 65 - 199 mg/dL [facility] Comment: Supplemental ranges: <140 mg/dL before meals <180 mg/dL all other times of the day Blood 09/17/2022 7:10 PM EDT 09/17/2022 7:10 PM EDT Dyan Sears MD POINT [place] [address] * CT Abdomen & Pelvis w Contrast [...] who have questions please contact the health child caregiver private home that requested your imaging first. ? Narrative [...] patients who have questions please contactthe health child caregiver private home that requested your imaging first. Dyan Sears MD IM CT ORDERABLES * POCT Glucose (09/17/2022 3:58 PM EDT) Glucose, POC 171 65 - 199 mg/dL [facility] Comment: Supplemental ranges: <140 mg/dL before meals <180 mg/dL all other times of the day Blood 09/17/2022 3:58 PM EDT 09/17/2022 3:58 PM EDT Dyan Sears MD POINT OF CARE TEST O TED Performing Organization Address City/[facility] Co de Phone Number [facility] [place] [address] * POCT Glucose (09/17/2022 11:37 AM EDT) Glucose, POC 175 65 - 199 mg/dL [facility] Comment: Supplemental ranges: <140 mg/dL before meals <180 mg/dL all other times of the day Blood 09/17/2022 11:3 7 AM EDT 09/17/2022 11:37 AM EDT Dyan Sears MD POINT OF CARE TEST O TED Performing Organization Address [facility] Co de Phone Number [facility] [place] [address] * POCT Glucose (09/17/2022 7:30 AM EDT) Glucose, POC 139 65 - 199 mg/dL [facility] Comment: Supplemental ranges: <140 mg/dL before meals <180 mg/dL all other times of the day Blood 09/17/2022 7:30 AM EDT 09/17/2022 7:30 AM EDT Dyan Sears MD POINT OF CARE TEST O TED Performing Organization Address [facility] Co de Phone Number [facility] [place] [address] * POCT Glucose (09/17/2022 3:29 AM EDT) Glucose, POC 151 65 - 199 mg/dL [facility] Comment: Supplemental ranges: <140 mg/dL before meals <180 mg/dL all other times of the day Blood 09/17/2022 3:29 AM EDT 09/17/2022 3:29 AM EDT Dyan Sears MD POINT [place] [address] * Differential, Automated (09/17/2022 12:51 AM EDT) Neutrophil % 68.9 % [facility] Neutrophil Absolute 5.82 1.70 - 6.10 x10(3)/[facility] Lymph % 16.7 % [facility] Lymphocytes Abs 1.4 0.9 - 3.2 x10(3)/[facility] Monocyte % 9.2 % [facility] Monocyte Abs 0.8 0.3 - 0.9 x10(3)/[facility] Eos % 4.1 % [facility] Eosinophils Abs 0.4 0.0 - 0.4 x10(3)/[facility] Basophil % 0.7 % [facility] Baso Absolute 0.1 0.0 - 0.1 x10(3)/[facility] Immature Gran % 0.40 % [facility] Comment: Immature granulocytes(IG's)percentage and absolute count will include metamyelocytes, myelocytes, and promyelocytes. Blood smears from CBCs yielding IG's will be scanned manually for concordance. If this scan disagrees with the automated IG or if promyelocytes are noted, a manual differential will be performed. Immature Gran Absolute 0.03 0.00 - 0.04 x10(3)/[facility] Blood 09/17/2022 12:5 1 AM EDT 09/17/2022 12:57 AM EDT Narrative Resulting Agency Comment Spec In Lab Miguel Rogers MD HEMATOLOGY ORDERABLE S Performing Organization Address City/[facility]/[place] [address] * (ABNORMAL) Hemogram (09/17/2022 12:51 AM EDT) White Blood Cell 8.4 4.0 - 9.5 x10(3)/mc L [facility] Red Blood Cell 4.29(L) 4.58 - 5.54 x10(6)/mc L [facility] Hemoglobin 12.8(L) 13.7 - 16.5 g/dL [facility] Hematocrit 37.1(L) 40.5 - 48.5 % [facility] Mean Cell Volume 86.5 82.9 - 93.1 fL [facility] Mean Cell Hemoglobin 29.8 27.5 - 32.1 pg [facility] Mean Cell Hemoglobin Concentration 34.5 32.0 - 35.7 g/dL [facility] Platelet 229 145 - 357 x10(3)/mc L [facility] RDW Standard Deviation 40.2 36.0 - 45.0 fL [facility] RDW coefficient of variation 12.8 11.4 - 13.8 % [facility] Mean Platelet Volume 9.3 7.6 - 12.9 fL [facility] NRBC% auto 0.0 % [facility] NRBC Absolute 0.000 0.000 - 0.000 x10(3)/mc L [facility] Blood 09/17/2022 12:5 1 AM EDT 09/17/2022 12:57 AM EDT Narrative Resulting Agency Comment Spec In Lab Miguel Rogers MD HEMATOLOGY ORDERABLE S Performing Organization Address City/[facility] Co de Phone Number [facility] [place] [address] * (ABNORMAL) Phosphorus (09/17/2022 12:51 AM EDT) Phosphorus 2.4(L) 2.5 - 4.5 mg/dL [facility] Blood 09/17/2022 12:5 1 AM EDT 09/17/2022 12:57 AM EDT Narrative Resulting Agency Comment Spec In Lab Asa Skaggs MD CHEMISTRY ORDERABLES Performing Organization Address City/[facility] Co de Phone Number [facility] [place] [address] * (ABNORMAL) Magnesium (09/17/2022 12:51 AM EDT) Magnesium 0.58(L) 0.69 - 1.07 mmol/L [facility] Blood 09/17/2022 12:5 1 AM EDT 09/17/2022 12:57 AM EDT Narrative Resulting Agency Comment Spec In Lab Asa Skaggs MD CHEMISTRY ORDERABLES [facility] [address] * (ABNORMAL) Basic Metabolic Panel (non-fasting) (09/17/2022 12:51 AM EDT) Glucose 173 65 - 199 mg/dL [facility] Comment:Diabetes: >=200 mg/d L plus symptoms Blood Urea Nitrogen 11 10 - 20 mg/dL [facility] Comment:result rechecked-[place] Creatinine 1.52(H) 0.80 - 1.50 mg/dL [facility] Sodium 140 135 - 145 mmol/L [facility] Potassium 3.7 3.5 - 5.0 mmol/L [facility] Comment: Please note: ??Patients with WBC >100,000 may have falsely elevated Potassium levels. ??For accurate Potassium quantification in these patients send serum separator tube (gold top) for subsequent determinations. ??Contact the Clinical Chemistry Laboratory if there are any questions. Chloride 107 98 - 107 mmol/L [facility] Carbon Dioxide 21(L) 22 - 31 mmol/L [facility] Anion Gap 12 5 - 15 mmol/L [facility] Calcium 9.0 8.5 - 10.5 mg/dL [facility] Est Glomerular Filtration Rate 48(L) >=60 mL/min/1. 73 m?? [facility] [...] Skaggs MD CHEMISTRY ORDERABLES Performing Organization Address City/[facility]/ZIP Co de Phone Number [facility] [place] [address] * (ABNORMAL) CRP, acute inflammation (09/17/2022 12:51 AM EDT) C-Reactive Protein 67.5(H) <=4.9 mg/L [facility] Comment:result rechecked-[place] Blood 09/17/2022 12:5 1 AM EDT 09/17/2022 12:57 AM EDT Narrative Resulting Agency Comment Spec In Lab Dyan Sears MD CHEMISTRY ORDERABLES Performing Organization Address [facility]/ZIP Co de Phone Number [facility] [place] [address] * POCT Glucose (09/16/2022 11:53 PM EDT) Glucose, POC 132 65 - 199 mg/dL [facility] Comment: Supplemental ranges: <140 mg/dL before meals <180 mg/dL all other times of the day Blood 09/16/2022 11:5 3 PM EDT 09/16/2022 11:53 PM EDT Dyan Sears MD POINT OF CARE TEST O RDERABLES Performing Organization Address City/[facility] Co de Phone Number [facility] [place] [address] * POCT Glucose (09/16/2022 7:31 PM EDT) Glucose, POC 165 65 - 199 mg/dL [facility] Comment: Supplemental ranges: <140 mg/dL before meals <180 mg/dL all other times of the day Blood 09/16/2022 7:31 PM EDT 09/16/2022 7:31 PM EDT Dyan Sears MD POINT OF CARE TEST O TED Performing Organization Address City/[facility] Co de Phone Number [facility] [place] [address] * POCT Glucose (09/16/2022 3:33 PM EDT) Glucose, POC 190 65 - 199 mg/dL [facility] Comment: Supplemental ranges: <140 mg/dL before meals <180 mg/dL all other times of the day Blood 09/16/2022 3:33 PM EDT 09/16/2022 3:33 PM EDT Dyan Sears MD POINT OF CARE TEST O TED Performing Organization Address [facility] Co de Phone Number [facility] [place] [address] * (ABNORMAL) POCT Glucose (09/16/2022 11:42 AM EDT) Glucose, POC 224(H) 65 - 199 mg/dL [facility] Comment: Supplemental ranges: <140 mg/dL before meals <180 mg/dL all other times of the day Blood 09/16/2022 11:4 2 AM EDT 09/16/2022 11:42 AM EDT Dyan Sears MD POINT OF CARE TEST O TED Performing Organization Address [facility] Co de Phone Number [facility] [place] [address] * POCT Glucose (09/16/2022 7:27 AM EDT) Glucose, POC 154 65 - 199 mg/dL [facility] Comment: Supplemental ranges: <140 mg/dL before meals <180 mg/dL all other times of the day Blood 09/16/2022 7:27 AM EDT 09/16/2022 7:27 AM EDT Dyan Sears MD POINT OF CARE TEST O RDERABLES Performing Organization Address City/[facility]/ZIP Co de Phone Number [facility] [place] [address] * POCT Glucose (09/16/2022 3:48 AM EDT) Pathologist [facility] Glucose, POC 124 65 - 199 mg/dL [facility] Comment: Supplemental ranges: <140 mg/dL before meals <180 mg/dL all other times of the day Blood 09/16/2022 3:48 AM EDT 09/16/2022 3:48 AM EDT Dyan Sears MD POINT OF CARE TEST O RDERABLES Performing Organization Address [facility] Co de Phone Number [facility] [place] [address] * (ABNORMAL) CRP, acute inflammation (09/16/2022 12:49 AM EDT) [facility] C-Reactive Protein 57.7(H) <=4.9 mg/L [facility] Blood Venous Draw / Unknown 09/16/2022 12:49 AM EDT 09/16/2022 12:57 AM EDT Narrative Resulting Agency Comment Spec In Lab Janet Perkins MD CHEMISTRY ORDERABLES Performing Organization Address [facility] Co de Phone Number [facility] [place] [address] * Differential, Automated (09/16/2022 12:49 AM EDT) Pathologist [facility] Neutrophil % 64.8 % [facility] Neutrophil Absolute 5.18 1.70 - 6.10 x10(3)/[facility] Lymph % 19.2 % [facility] Lymphocytes Abs 1.5 0.9 - 3.2 x10(3)/[facility] Monocyte % 9.4 % [facility] Monocyte Abs 0.8 0.3 - 0.9 x10(3)/[facility] Eos % 5.4 % [facility] Eosinophils Abs 0.4 0.0 - 0.4 x10(3)/[facility] Basophil % 0.9 % [facility] Baso Absolute 0.1 0.0 - 0.1 x10(3)/[facility] Immature Gran % 0.30 % [facility] Comment: Immature granulocytes(IG's)percentage and absolute count will include metamyelocytes, myelocytes, and promyelocytes. Blood smears from CBCs yielding IG's will be scanned manually for concordance. If this scan disagrees with the automated IG or if promyelocytes are noted, a manual differential will be performed. Immature Gran Absolute 0.02 0.00 - 0.04 x10(3)/[facility] Blood 09/16/2022 12:4 9 AM EDT 09/16/2022 12:55 AM EDT Narrative Resulting Agency Comment Spec In Lab Miguel Rogers MD HEMATOLOGY ORDERABLE S Performing Organization Address City/State/[facility] Co de Phone Number [facility] [place] [address] * (ABNORMAL) Hemogram (09/16/2022 12:49 AM EDT) White Blood Cell 8.0 4.0 - 9.5 x10(3)/mc L [facility] Red Blood Cell 4.51(L) 4.58 - 5.54 x10(6)/mc L [facility] Hemoglobin 13.6(L) 13.7 - 16.5 g/dL [facility] Hematocrit 39.1(L) 40.5 - 48.5 % [facility] Mean Cell Volume 86.7 82.9 - 93.1 fL [facility] Mean Cell Hemoglobin 30.2 27.5 - 32.1 pg [facility] Mean Cell Hemoglobin Concentration 34.8 32.0 - 35.7 g/dL [facility] Platelet 224 145 - 357 x10(3)/mc L [facility] RDW Standard Deviation 39.9 36.0 - 45.0 fL [facility] RDW coefficient of variation 12.7 11.4 - 13.8 % [facility] Mean Platelet Volume 9.0 7.6 - 12.9 fL [facility] NRBC% auto 0.0 % [facility]AL [facility]ORAT[facility] NRBC Absolute 0.000 0.000 - 0.000 x10(3)/mc L [facility] Blood 09/16/2022 12:4 9 AM EDT 09/16/2022 12:55 AM EDT Narrative Resulting Agency Comment Spec In Lab Miguel Rogers MD HEMATOLOGY ORDERABLE S [facility] [place] [address] * (ABNORMAL) Phosphorus (09/16/2022 12:49 AM EDT) Phosphorus 1.9(L) 2.5 - 4.5 mg/dL [facility] Blood 09/16/2022 12:4 9 AM EDT 09/16/2022 12:55 AM EDT Narrative Resulting Agency Comment Spec In Lab Asa Skaggs MD CHEMISTRY ORDERABLES Performing Organization Address [facility] Co de Phone Number [facility] [place] [address] * (ABNORMAL) Magnesium (09/16/2022 12:49 AM EDT) Magnesium 0.64(L) 0.69 - 1.07 mmol/L [facility] Blood 09/16/2022 12:4 9 AM EDT 09/16/2022 12:55 AM EDT Narrative Resulting Agency Comment Spec In Lab Asa Skaggs MD CHEMISTRY ORDERABLES Performing Organization Address [facility] Co de Phone Number [facility] [place] [address] * (ABNORMAL) Basic Metabolic Panel (non-fasting) (09/16/2022 12:49 AM EDT) Glucose 135 65 - 199 mg/dL [facility] Comment:Diabetes: >=200 mg/d L plus symptoms Blood Urea Nitrogen 6(L) 10 - 20 mg/dL [facility] Creatinine 1.20 0.80 - 1.50 mg/dL [facility] Sodium 141 135 - 145 mmol/L [facility] Potassium 3.6 3.5 - 5.0 mmol/L [facility] Comment: Please note: ??Patients with WBC >100,000 may have falsely elevated Potassium levels. ??For accurate Potassium quantification in these patients send serum separator tube (gold top) for subsequent determinations. ??Contact the Clinical Chemistry Laboratory if there are any questions. Chloride 107 98 - 107 mmol/L [facility] Carbon Dioxide 24 22 - 31 mmol/L [facility] Anion Gap 10 5 - 15 mmol/L [facility] Calcium 8.7 8.5 - 10.5 mg/dL [facility] Est Glomerular Filtration Rate 63 >=60 mL/min/1. 73 m?? [facility] [...] In Lab Asa Skaggs MD CHEMISTRY ORDERABLES [facility] [place] [address] * POCT Glucose (09/16/2022 12:08 AM EDT) Glucose, POC 143 65 - 199 mg/dL [facility] Comment: Supplemental ranges: <140 mg/dL before meals <180 mg/dL all other times of the day Blood 09/16/2022 12:0 8 AM EDT 09/16/2022 12:08 AM EDT Dyan Sears MD POINT OF CARE TEST O RDERABLES Performing Organization Address [facility]/ZIP Co de Phone Number [facility] [place] [address] * POCT Glucose (09/15/2022 9:04 PM EDT) Glucose, POC 137 65 - 199 mg/dL [facility] Comment: Supplemental ranges: <140 mg/dL before meals <180 mg/dL all other times of the day Blood 09/15/2022 9:04 PM EDT 09/15/2022 9:04 PM EDT Dyan Sears MD POINT OF CARE TEST O RDERABG Performing Organization Address [facility] Co de Phone Number [facility] [place] [address] * POCT Glucose (09/15/2022 3:51 PM EDT) Glucose, POC 195 65 - 199 mg/dL [facility] Comment: Supplemental ranges: <140 mg/dL before meals <180 mg/dL all other times of the day Blood 09/15/2022 3:51 PM EDT 09/15/2022 3:51 PM EDT Dyan Sears MD POINT OF CARE TEST O RDERABG Performing Organization Address [facility] Co de Phone Number [facility] [place] [address] * POCT Glucose (09/15/2022 12:00 PM EDT) Glucose, POC 171 65 - 199 mg/dL [facility] Comment: Supplemental ranges: <140 mg/dL before meals <180 mg/dL all other times of the day Blood 09/15/2022 12:0 0 PM EDT 09/15/2022 12:00 PM EDT Asa Skaggs MD POINT OF CARE TEST O RDERABLES Performing Organization Address [facility] Co de Phone Number [facility] [place] [address] * Tacrolimus level (09/15/2022 11:38 AM EDT) Tacrolimus 12.8 ng/mL [facility] Comment: Trough therapeutic range is 3-15 [...] Skaggs MD CHEMISTRY ORDERABLES Performing Organization Address [facility] Co de Phone Number [facility] [place] [address] * POCT Glucose (09/15/2022 7:42 AM EDT) Glucose, POC 147 65 - 199 mg/dL [facility] Comment: Supplemental ranges: <140 mg/dL before meals <180 mg/dL all other times of the day Blood 09/15/2022 7:42 AM EDT 09/15/2022 7:42 AM EDT Asa Skaggs MD POINT OF CARE TEST O RDERABLES Performing Organization Address [facility] Co de Phone Number [facility] [place] [address] * POCT Glucose (09/15/2022 5:56 AM EDT) Glucose, POC 158 65 - 199 mg/dL [facility] Comment: Supplemental ranges: <140 mg/dL before meals <180 mg/dL all other times of the day Blood 09/15/2022 5:56 AM EDT 09/15/2022 5:56 AM EDT Asa Skaggs MD POINT OF CARE TEST O RDERABLES Performing Organization Address [facility] Co de Phone Number [facility] [place] [address] * POCT Glucose (09/15/2022 4:50 AM EDT) [facility] Glucose, POC 164 65 - 199 mg/dL [facility] Comment: Supplemental ranges: <140 mg/dL before meals <180 mg/dL all other times of the day Blood 09/15/2022 4:50 AM EDT 09/15/2022 4:50 AM EDT Asa Skaggs MD POINT OF CARE TEST O RDERABLES Performing Organization Address [facility] Co de Phone Number [facility] [place] [address] * (ABNORMAL) CRP, acute inflammation (09/15/2022 12:11 AM EDT) [facility] C-Reactive Protein 80.3(H) <=4.9 mg/L [facility] Blood Venous Draw / Unknown 09/15/2022 12:11 AM EDT 09/15/2022 12:20 AM EDT Narrative Resulting Agency Comment Spec In Lab Marcio Haynes MD CHEMISTRY ORDERABLES Performing Organization Address [facility] Co de Phone Number [facility] [place] [address] * Differential, Automated (09/15/2022 12:11 AM EDT) [facility] Neutrophil % 68.5 % [facility] SP[facility] LABORATORY Neutrophil Absolute 5.50 1.70 - 6.10 x10(3)/[facility] LABORATORY Lymph % 18.2 % [facility] Lymphocytes Abs 1.5 0.9 - 3.2 x10(3)/[facility] LABORATORY Monocyte % 8.1 % [facility] HOSP ITAL LABORATORY Monocyte Abs 0.6 0.3 - 0.9 x10(3)/[facility] LABORATORY Eos % 3.9 % [facility] Eosinophils Abs 0.3 0.0 - 0.4 x10(3)/[facility] LABORATORY Basophil % 1.1 % [facility] Baso Absolute 0.1 0.0 - 0.1 x10(3)/[facility] LABORATORY Immature Gran % 0.20 % [facility] Comment: Immature granulocytes(IG's)percentage and absolute count will include metamyelocytes, myelocytes, and promyelocytes. Blood smears from CBCs yielding IG's will be scanned manually for concordance. If this scan disagrees with the automated IG or if promyelocytes are noted, a manual differential will be performed. Immature Gran Absolute 0.02 0.00 - 0.04 x10(3)/[facility] LABORATORY Blood 09/15/2022 12:1 1 AM EDT 09/15/2022 12:18 AM EDT Narrative Resulting Agency Comment Spec In Lab Miguel Rogers MD HEMATOLOGY ORDERABLE S Performing Organization Address City/State/[facility] Co de Phone Number [facility] [place] [address] * (ABNORMAL) Hemogram (09/15/2022 12:11 AM EDT) White Blood Cell 8.0 4.0 - 9.5 x10(3)/mc L [facility] Red Blood Cell 4.37(L) 4.58 - 5.54 x10(6)/mc L [facility] Hemoglobin 13.2(L) 13.7 - 16.5 g/dL [facility] Hematocrit 38.2(L) 40.5 - 48.5 % [facility] Mean Cell Volume 87.4 82.9 - 93.1 fL [facility] Mean Cell Hemoglobin 30.2 27.5 - 32.1 pg [facility] Mean Cell Hemoglobin Concentration 34.6 32.0 - 35.7 g/dL [facility] Platelet 217 145 - 357 x10(3)/mc L [facility] RDW Standard Deviation 41.2 36.0 - 45.0 fL [facility] RDW coefficient of variation 12.8 11.4 - 13.8 % [facility] Mean Platelet Volume 9.4 7.6 - 12.9 fL [facility] NRBC% auto 0.0 % [facility] NRBC Absolute 0.000 0.000 - 0.000 x10(3)/mc L [facility] Blood 09/15/2022 12:1 1 AM EDT 09/15/2022 12:18 AM EDT Narrative Resulting Agency Comment Spec In Lab Miguel Rogers MD HEMATOLOGY ORDERABLE S Performing Organization Address City/[facility] Co de Phone Number [facility] [place] [address] * (ABNORMAL) Hepatic Function Panel (09/15/2022 12:11 AM EDT) Protein, Total 6.0(L) 6.1 - 8.0 g/dL [facility] Albumin 3.4 3.2 - 5.2 g/dL [facility] Aspartate Aminotransferase 11 0 - 39 unit/L [facility] Alanine Aminotransferase 10 0 - 55 unit/L [facility] Alkaline Phosphatase 67 40 - 130 unit/L [facility] Bilirubin, Total 2.1(H) 0.2 - 1.3 mg/dL [facility] Bilirubin, Direct 0.2 0.0 - 0.3 mg/dL [facility] Blood 09/15/2022 12:1 1 AM EDT 09/15/2022 12:18 AM EDT Narrative Resulting Agency Comment Spec In Lab Asa Skaggs MD CHEMISTRY ORDERABLES Performing Organization Address [facility] Co de Phone Number [facility] [place] [address] * (ABNORMAL) Phosphorus (09/15/2022 12:11 AM EDT) Phosphorus 2.3(L) 2.5 - 4.5 mg/dL [facility] Blood 09/15/2022 12:1 1 AM EDT 09/15/2022 12:18 AM EDT Narrative Resulting Agency Comment Spec In Lab Asa Skaggs MD CHEMISTRY ORDERABLES Performing Organization Address City/[facility]/ZIP Co de Phone Number [facility] [place] [address] * Magnesium (09/15/2022 12:11 AM EDT) Magnesium 0.78 0.69 - 1.07 mmol/L [facility] Blood 09/15/2022 12:1 1 AM EDT 09/15/2022 12:18 AM EDT Narrative Resulting Agency Comment Spec In Lab Asa Skaggs MD CHEMISTRY ORDERABLES [facility] [address] * (ABNORMAL) Basic Metabolic Panel (non-fasting) (09/15/2022 12:11 AM EDT) Glucose 202(H) 65 - 199 mg/dL [facility]ITAL [facility] Comment:Diabetes: >=200 mg/d L plus symptoms Blood Urea Nitrogen 9(L) 10 - 20 mg/dL [facility] Creatinine 1.28 0.80 - 1.50 mg/dL [facility] Sodium 140 135 - 145 mmol/L [facility] Potassium 3.7 3.5 - 5.0 mmol/L [facility] Comment: Please note: ??Patients with WBC >100,000 may have falsely elevated Potassium levels. ??For accurate Potassium quantification in these patients send serum separator tube (gold top) for subsequent determinations. ??Contact the Clinical Chemistry Laboratory if there are any questions. Chloride 106 98 - 107 mmol/L [facility] Carbon Dioxide 26 22 - 31 mmol/L [facility] Anion Gap 8 5 - 15 mmol/L [facility] Calcium 8.5 8.5 - 10.5 mg/dL [facility] Est Glomerular Filtration Rate 59(L) >=60 mL/min/1. 73 m?? [facility] [...] In Lab Asa Skaggs MD CHEMISTRY ORDERABLES [facility] [address] * POCT Glucose (09/14/2022 9:51 PM EDT) Glucose, POC 159 65 - 199 mg/dL [facility] Comment: Supplemental ranges: <140 mg/dL before meals <180 mg/dL all other times of the day Blood 09/14/2022 9:51 PM EDT 09/14/2022 9:51 PM EDT Asa Skaggs MD POINT OF CARE TEST O RDERABLES Performing Organization Address [facility] Co de Phone Number [facility] [address] documented in this encounter Visit Diagnoses Diagnosis Diverticulitis- Primary Diverticulitis of colon (without mention of hemorrhage) running specialist current use of immunosuppressive drug Diverticulitis Diverticulitis [...] 5 mg, Oral, NIGHTLY, First dose on Thu09/14/22 at 2200, Until [...] Starting on Thu09/17/22 at 1900, Until Laura 23 at 1816 Restarted 09/18/2022 12:10 PM EDT [...] 1 mg, Oral, NIGHTLY, First dose on Thu09/14/22 at 2200, Until Discontinued, DO NOT SPLIT, [...] 5 mg, Oral, NIGHTLY, First dose on Thu09/14/22 at 2200, Until Discontinued, Routine 2007 (Given - Provider: Alla Power RN) 2005 (Given - Provider: Jo-Ann Chen, JADEN) ascorbic acid (Vitamin C) (Vitamin C) tablet 500 mg 500 mg, Oral, 3 TIMES DAILY, First dose on 09/14/22 at 2200, Until Discontinued, Routine 0810 (Given - Provider: Emily Dawkins LPN)1509 (Given - Provider: Jomar Cantor RN)2008 (Given - Provider: Alla Power RN) 09 (Given - Provider: Margarita Smiley RN)161 (Given - Provider: Margarita Smiley RN)2004 (Given - Provider: Jo-Ann Chen, JADEN) 1038 (Given - Provider: Margarita Smiley RN) aspirin EC tablet 81 mg 81 mg, Oral, DAILY, First dose on Thu09/15/22 at 0900, Until Discontinued, Routine 0935 (Given - Provider: Emily Dawkins LPN) 09 (Given - Provider: Margarita Smiley RN) 1038 (Given - Provider: Margarita Smiley RN) atorvastatin (Lipitor) tablet 40 mg 40 mg, Oral, EVERY EVENING, First dose on 09/14/22 at 2200, Until Discontinued, Routine 1600 (Given [...] Dawkins LPN)1509 (Given - Provider: Jomar Cantor RN)220 (Given - Provider: Alla Power RN) 0534 (Given - Provider: Alla Power RN)1612 (Given - Provider: Margarita Smiley, JADEN)2141 (Given - Provider: Jo-Ann Chen, JADEN) 0609 (Given - Provider: Jo-Ann Chen, JADEN) hydrALAZINE (Apresoline) tablet 100 mg 100 mg, Oral, 2 TIMES DAILY, First dose on Thu09/14/22 at 2200, Until Discontinued, Routine 808 (Given - Provider: Emily Dawkins LPN)2007 (Given - Provider: Alla Power RN) 09 (Given - Provider: Margarita Smiley, JADEN)2004 (Given - Provider: Jo-Ann Chen, JADEN) 1037 (Given - Provider: Margarita Smiley RN) HYDROmorphone (Dilaudid) (0.2 mg/1 mL) injection syringe 0.2 mg (COMPLETED) 0.2 mg, Intravenous, ONCE, 1 dose, On Thu09/17/22 at 1930, Routine 2007 (Given - Provider: Alla Power RN) insulin lispro (HumaLOG;Admelog) (100 unit/mL) subcutaneous injection [...] 2 HOURS, 2 doses, First dose on Laura 09/18/22 at 0600, Last dose on Thu09/18/22 at 0800, Administer over 120 Minutes 0534 (New Bag - Provider: Alla Power RN)0734 (Stopped - Provider: Margarita Smiley RN)0904 (New Bag - Provider: Margarita Smiley RN)1104 (Stopped - Provider: Margarita Smiley RN) metoprolol succinate XL (Toprol-XL) tablet 50 mg 50 mg, Oral, 2 TIMES DAILY, First dose on 09/14/22 at 2200, Until Discontinued, DO NOT CRUSH OR OPEN, Routine 0811 (Given - Provider: Emily Dawkins LPN)2007 (Given - Provider: Alla Power RN) 09 (Given - Provider: Margarita Smiley RN)2005 (Given - Provider: Jo-Ann Chen, JADEN) 1037 (Given - Provider: Margarita Smilye RN) mycophenolate (Cellcept) capsule 250 mg 250 mg, Oral, 2 TIMES DAILY, First dose on Thu09/14/22 at 2200, Until Discontinued, DO NOT CRUSH OR OPEN, Routine 0811 (Given - Provider: Emily Dawkins LPN)2007 (Given - Provider: Alla Power RN) 09 (Given - Provider: Margarita Smiley RN)2005 (Given - Provider: Jo-Ann Chen, JADEN) 1038 (Given - Provider: Margarita Smiley RN) pantoprazole EC (Protonix) tablet 40 mg 40 mg, Oral, DAILY, First dose on Thu09/15/22 at 0900, Until Discontinued, DO NOT CRUSH OR OPEN 0810 (Given - Provider: Emily Dawkins LPN) 09 (Given - Provider: Margarita Smiley RN) 1038 [...] Dawkins LPN - Comment: paused while bicarb infusing)1959 (Hold - Provider: Jomar Cantor RN - Reason: See comment - Comment: see mar)2318 (New Bag - Provider: Alla Power RN) 0403 (Stopped - Provider: Alla Power RN)0907 (New Bag - Provider: Margarita Smiley RN)1307 (Stopped - Provider: Margarita Smiley RN)1613 (New Bag - Provider: Margarita Smiley RN)2012 (Stopped - Provider: Jo-Ann Chen, JADEN)2342 (New Bag - Provider: Jo-Ann Cehn, JADEN) 0342 (Stopped - Provider: Luma Su RN)0811 (New Bag - Provider: Margarita Smiley [...] 0625 (New Bag - Provider: Alla Power RN)0909 (Stopped - Provider: Margarita Smiley RN) senna-docusate (Pericolace) 8.6-50 mg per tablet 2 tablet 2 tablet, Oral, 2 TIMES DAILY, First dose on 09/14/22 at 2200, Until Discontinued, Routine 0810 (Not Given - Provider: Emily Dawkins LPN - Reason: Patient/family refused)2008 (Given - Provider: Alla Power RN) 09 (Not Given - Provider: Margarita Smiley RN - Reason: Patient/family refused)2004 (Given - Provider: Jo-Ann Chen RN) 0900 (Not Given - Provider: Margarita Smiley RN - Reason: Patient/family refused) sodium chloride 0.9 % (flush) (BD PosiFlush Normal Saline 0.9) flush 5 mL 5 mL, Intravenous, 2 TIMES DAILY, First dose on 09/14/22 at 2200, Until Discontinued, Routine 0900 (Not Given - Provider: Emily Dawkins LPN - Reason: See comment - Comment: fluid infusing)2099 (Given - Provider: Alla Power RN) 0908 (Given - Provider: Margarita Smiley RN)2099 (Given [...] Power RN) 2005 (Given - Provider: Jo-Ann Chen, JADEN) tacrolimus (Prograf) capsule 1 mg 1 mg, Oral, DAILY, First dose (after last modification) on Thu09/17/22 at 0900, Until Discontinued, DO NOT SPLIT, CRUSH OR OPEN, Routine 08 (Given - Provider: Emily Dawkins LPN) 09 (Given - Provider: Margarita Smiley RN) 1038 (Given - Provider: Margarita Smiley RN) tamsulosin (Flomax) capsule 0.4 mg 0.4 mg, Oral, DAILY, First dose on Thu09/15/22 at 0900, Until Discontinued, DO NOT CRUSH OR OPEN, Routine 08 (Given - Provider: Emily Dawkins LPN) 09 (Given - Provider: Margarita Smiley RN) 1038 (Given - Provider: Margarita Smiley RN) Continuous Medication Order 09/17/2022 09/18/2022 09/19/2022 lactated ringers infusion (CANCELED) 75 mL/hr, Intravenous, CONTINUOUS, Starting on Thu09/17/22 at 1900, Until Laura 09/18/22 at 1816 1830 (New Bag - Provider: Jomar Cantor RN) 0959 (Rate/Dose Verify - Provider: Margarita Smiley RN)1114 (Paused - Provider: Margarita Smiley RN - Comment: pt showering)1210 (Restarted - Provider: Margarita Smiley RN)1816 (Stopped - Provider: Margarita Smiley, JADEN) sodium bicarbonate 150 mEq in dextrose 5% 1150 mL infusion (CANCELED) 3 mL/kg/hr ? 98.7 kg (296.1 mL/hr), Intravenous, CONTINUOUS, Starting on Thu09/17/22 at 1445, Until Laura 09/18/22 at 0533, Start [address] and continue for [address] 1520 (New Bag - Provider: Jomar Cantor RN)1924 (New Bag - Provider: Luma Su RN)2127 (Stopped - Provider: Alla Power RN) PRN Medication Order 09/17/2022 09/18/2022 09/19/2022 acetaminophen (Tylenol) tablet 975 mg 975 mg, Oral, EVERY 6 HOURS PRN, Starting on 09/16/22 at 1629, Until Thu09/19/22 at 1746, Pain, Maximum dose of acetaminophen is 4,000 mg from all sources in 24 hours. When ordered for pain, acetaminophen should be given even when other ordered pain medications are indicated. , Routine 0905 (Given - Provider: Margarita Smiley, JADEN)1612 (Given - Provider: Margarita Smiley, JADEN) 0800 (Given - Provider: Margarita Smiley RN)1437 (Given - Provider: Margarita Smiley, JADEN) bisacodyL (Dulcolax) suppository 10 mg 10 mg, [...] Margarita Smiley RN)1621 (Given - Provider: Margarita Smiley, JADEN) 0800 (Given - Provider: Margarita Smiley, JADEN)1437 (Given - Provider: Margarita Smiley RN) sodium chloride 0.9 % (flush) (BD PosiFlush Normal Saline 0.9) flush 5-20 mL 5-20 mL, Intravenous, EVERY 1 MIN PRN, Starting on Thu09/14/22 at 2109, Until Thu09/19/22 at 1746, flush, [...] documented in this encounter Care Teams Senior Quantity Surveyor Relationship Specialty Start Date End Date Urbano Jimenez DO [address] [place] [address] PCP - General Family Medicine 03/18/22 Ruchi Valles RN Nurse Clinic Transplant Surgery 07/30/15 documented as of this encounter
--- OUTSIDE RECORDS SUMMARY | 2024-04-04 13:53 | XMS_ITS | Encounter Summary ---
[facility] [place] [address] Care Team Providers Care Traffic Operations Engineer Name Role Phone Urbano Jimenez Ray KIRBY Primary Care Provider [phone] Reason for Visit * Reason Onset Date Comments Bumped Appointment 08/18/2022 Encounter Details Date Type Department Care Team (Late st Contact Info) Description 08/18/2022 Telephone [place] [address] Breezy Dale MD [facility] [address] [place] [address] Bumped Appointment Social History Tobacco Use Types [...] PM EDT Office Visit Cardiology at [address] [phone] Jay Urban MD [facility] [place] [address] 04/15/2024 10:00 AM EDT Hospital Encounter Non[place] [phone] Arrived documented as of this encounter Goals Goal Patient Goal Type Associated Problems Recent Progress Patient-Stated? Author [facility] Medication Compliance and Understanding Patient Facing Action Plan On track( 017 10:41 AM EDT) Selena Scott, [facility] Note: Patient Goal: Clear hepatitis C Timeframe to meet goal: within 12 weeks of therapy documented as of this encounter Visit Diagnoses Not on filedocumented in this encounter Care Teams Traffic Operations Engineer Relationship Specialty Start Date End Date Urbano Jimenez DO [address] [place] [address] PCP - General Family Medicine 03/18/22 Ruchi Valles RN Nurse Clinic Transplant Surgery 07/30/15 documented as of this encounter
--- OUTSIDE RECORDS SUMMARY | 2024-04-04 13:53 | XMS_ITS | Encounter Summary ---
Author Organization [facility] [place] [address] Care Team Providers Care Chemical Processing Supervisor Name Role Phone Urbano Jimenez DO Primary Care Provider [phone] Encounter Details Date Type Department Care Team (Latest Contact Info) Description 08/06/2022 Orders Only [place] [phone] Urbano Houston LPN H/O kidney transplant; USP current use of immunosuppressive drug; Vitamin D [...] PM EDT Office Visit Cardiology at [address] [phone] Jay Urban MD [facility] [place] [address] 04/15/2024 10:00 AM EDT Hospital Encounter Non-Invasive [place] [phone] Arrived documented as of this [...] deficiency documented in this encounter Care Teams Chemical Processing Supervisor Relationship Specialty Start Date End Date Urbano Jimenez DO [address] [place] [address] PCP - General Family Medicine 03/18/22 Ruchi Valles RN Nurse Clinic Transplant Surgery 07/30/15 documented as of this encounter
--- OUTSIDE RECORDS SUMMARY | 2024-04-04 13:53 | XMS_ITS | Encounter Summary ---
Author Organization [facility] [place] [address] Care Team Providers Care Truck Body Builder Apprentice Name Role Phone Urbano Jimenez DO Primary Care Provider [phone] Reason for Visit * Auth/Cert (Routine) Specialty Diagnoses / Procedures Referred By Contac t Referred To Contact Diagnoses Other persistent atrial fibrillation Persistent atrial fibrillation S/P BATOOL 45D F/U Procedures PRG DAVEY REAL TIME IMG 2D W PRB IMG ACQUIS I&R TRANSESOPHAGEAL ECHOCARDIOGRAM (WRVU 2.55) Liseth Calero MD [facility] [place] [address] [facility] Referral ID Status Reason Start Date Expiration Date Visits Re quested Visits Authorized [id number] 1 1 Encounter Details Date Type Department Care Team (Latest Contact Info) Description 07/15/2022 4:40 PM EST TH Visit (TeleHealth) Cardiology at [address] [address] [facility] [place] [address] Atrial fibrillation, unspecified type (Primary Dx); Hypertension secondary to other renal disorders; Coronary artery disease involving [place] heart, unspecified vessel or lesion type, unspecified [...] deficiency 09/20/2017 ??? Prophylactic immunotherapy 09/22/2016 ??? snf current use of immunosuppressive drug 09/22/2016 ??? [...] documentation: 30 minutes. Tal Diana MD Pager [phone] documented in this encounter Plan of Treatment Upcoming Encounters Date Type Department Care Team (Late st Contact Info) Description 04/08/2024 1:40 PM EDT Office Visit Cardiology at [address] [address] [facility] [place] [address] 04/15/2024 10:00 AM EDT Hospital Encounter [place] [address] Arrived documented as of this encounter Goals [...] other renal disorders Coronary artery disease involving [place] heart, unspecified vessel or lesion type, unspecified whether angina present Tachy-sakina syndrome Sinoatrial node dysfunction Pacemaker Cardiac pacemaker in situ Aortic stenosis, mild Aortic valve disorders Mitral valve insufficiency, unspecified etiology Atrial fibrillation with RVR - had flutter initially, then fib Atrial fibrillation documented in this encounter Care Teams Truck Body Builder Apprentice Relationship Specialty Start Date End Date Urbano Jimenez DO [address] [place] [address] PCP - General Family Medicine 03/18/22 Ruchi Valles RN Nurse Clinic Transplant Surgery 07/30/15 documented as of this encounter
--- OUTSIDE RECORDS SUMMARY | 2024-04-04 13:53 | XMS_ITS | Encounter Summary ---
Author Organization [facility] [place] [address] Care Team Providers Care Housekeeper Name Role Phone Urbano Jimenez Ray KIRBY Primary Care Provider [phone] Reason for Visit * Reason Comments Medication Refill Encounter Details Date Type Department Care Team (Late st Contact Info) Description 09/04/2022 Refill [place] [address] Gurdeep Boston APRN [facility] [place] [address] H/O kidney transplant; Aftercare following organ transplant; Other complication of kidney transplant; prison current use of immunosuppressive drug Social History [...] PM EDT Office Visit Cardiology at [address] [phone] Jay Urban MD [facility] [place] [address] 04/15/2024 10:00 AM EDT Hospital Encounter Non[place] [address] Arrived documented as of this [...] organ transplant Other complication of kidney transplant prison current use of immunosuppressive drug documented in this encounter Care Teams Housekeeper Relationship Specialty Start Date End Date Urbano Jimenez DO [address] [facility] [place] [address] PCP - General Family Medicine 03/18/22 Ruchi Valles RN Nurse Clinic Transplant Surgery 07/30/15 documented as of this encounter
--- OUTSIDE RECORDS SUMMARY | 2024-04-04 13:53 | XMS_ITS | Encounter Summary ---
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; 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 Social History [...] 1:40 PM EDT Office Visit Cardiology at [address] [address] Jay Urban MD [facility] [place] [address] 04/15/2024 10:00 AM EDT Hospital Encounter Non[place] [address] Arrived documented as of this [...] organ transplant Other complication of kidney transplant halfway current use of immunosuppressive drug documented in this encounter Care Teams Manager Inspection Relationship Specialty Start Date End Date Urbano Jimenez DO [address] [facility] [place] [address] PCP - General Family Medicine 03/18/22 Ruchi Valles RN Nurse Clinic Transplant Surgery 07/30/15 documented as of this encounter
--- OUTSIDE RECORDS SUMMARY | 2024-04-04 13:53 | XMS_ITS | Encounter Summary ---
[place] [address] Care Team Providers Care Concrete Journeyman Name Role Phone Urbano Jimenez DO Primary Care Provider [phone] Encounter Details Date Type Department Care Team (Late st Contact Info) Description 06/02/2022 Telephone Cardiology at [address] [phone] Urbano Padilla, RN Social History Tobacco Use [...] scheduled for 07/15/2021. Best contact number is [phone]. Note routed to the Structural Heart Team as requested. Karthik Padilla RNhot roll inspector Team Nurse [facility] Ambulatory Cardiology documented in this encounter Plan of Treatment Upcoming Encounters Date Type Department Care Team (Late st Contact Info) Description 04/08/2024 1:40 PM EDT Office Visit Cardiology at [address] [phone] Jay Urban MD [facility] [place] [address] 04/15/2024 10:00 AM EDT Hospital Encounter Non[place] [phone] Arrived documented as of this encounter Goals [...] on filedocumented in this encounter Care Teams Concrete Journeyman Relationship Specialty Start Date End Date Urbano Jimenez DO [address] [place] [address] [place] [address] PCP - General Family Medicine 03/18/22 Ruchi Valles RN Nurse Clinic Transplant Surgery 07/30/15 documented as of this encounter
--- OUTSIDE RECORDS SUMMARY | 2024-04-04 13:53 | XMS_ITS | Encounter Summary ---
Author Organization [facility] [place] [address] Care Team Providers Care Office Administration Name Role Phone Tony Urbano Bell DO Primary Care Provider [phone] Encounter Details Date Type Department Care Team (Late st Contact Info) Description 09/17/2022 External Results [place] [address] Social History Tobacco Use Types Packs/Day Years Used Date Smoking Tobacco: Light Smoker Cigars Smokeless Tobacco: Never Comments:cigars, one weekly Alcohol Use Standard Drinks/Week Comments No 0 (1 standard drink = 0.6 oz pur e alcohol) [facility] Inpatient Questions Answer Date Recorded [...] 1:40 PM EDT Office Visit Cardiology at [address] [phone] Jay Urban MD [facility] [place] [address] 04/15/2024 10:00 AM EDT Hospital Encounter [place] [address] Arrived documented as of this encounter Goals [...] * Scan Doc: Lab (09/12/2022) Historical Provider MD MEDIA MGR SCAN EX T ORDR/RSLT documented in this encounter Visit Diagnoses Not on filedocumented in this encounter Care Teams Office Administration Relationship Specialty Start Date End Date Urbano Jimenez DO [address] [place] [address] PCP - General Family Medicine 03/18/22 Ruchi Valles RN Nurse Clinic Transplant Surgery 07/30/15 documented as of this encounter
--- OUTSIDE RECORDS SUMMARY | 2024-04-04 13:53 | XMS_ITS | Encounter Summary ---
Author Organization [facility] [place] [address] Care Team Providers Care Records Management Manager Name Role Phone Urbano Jimenez DO Primary Care Provider [phone] Encounter Details Date Type Department Care Team (Late st Contact Info) Description 06/02/2022 11:00 AM EST Office Visit Cardiology at [address] [address] Mara Holman, ROLLOFF TRUCK DRIVER [facility] [place] [address] Pacemaker; Atrial fibrillation with RVR; Persistent atrial [...] Media section for details Cody Patricia Yuan [id number] 06/02/2022 History: 71 yo male with history of atrial fibrillation s/p Watchman LAAC, on Eliquis 2.5mg twice daily, and 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 Brown requested pacemaker interrogation today to determine atrial arrhythmia burden. He is feeling fatigue, and unsure if it is related to an increase in metoprolol. Device Interrogation: Data Generator: Medtronic [place] XT LOULOU [id number] MRI SureScan - right-sided implant 01/31/2022 RA Lead: Medtronic 5076-45 CapsureFix Novus MRI [id number] Implanted: 31-Jan-2022 RV Lead: Medtronic 5076-52 CapsureFix Novus MRI [id number] Implanted: 31-Jan-2022 Device is MRI-conditional. Alerts ?? AT/AF >= 6 hr for 26 days. Episode in progress 16 days, 12 hours and 37 minutes. Diagnostics Pacing Mode: AAIR<=>DDDR 60-130 Presenting EGMs: ,Ar/VS and occasional MECHANIC INSULATOR Underlying Rhythm: atrial fibrillation 43 bpm. Atrial [...] possible cardioversion. Mara Holman APRN 06/02/2022 Pager: [phone] documented in this encounter Plan of Treatment Upcoming Encounters Date Type Department Care Team (Late st Contact Info) Description 04/08/2024 1:40 PM EDT Office Visit Cardiology at [address] [phone] Jay Urban MD [facility] [place] [address] 04/15/2024 10:00 AM EDT Hospital Encounter Non-[place]vasive [place] [phone] Arrived documented as of this encounter Goals [...] fibrillation documented in this encounter Care Teams Records Management Manager Relationship Specialty Start Date End Date Urbano Jimenez DO [address] [place] [address] PCP - General Family Medicine 03/18/22 Ruchi Valles RN Nurse Clinic Transplant Surgery 07/30/15 documented as of this encounter
--- OUTSIDE RECORDS SUMMARY | 2024-04-04 13:53 | XMS_ITS | Encounter Summary ---
Author Organization [facility] Address [facility] [place] [address] Care Team Providers Care Roll Reclaimer Name Role Phone Urbano Jimenez Ray KIRBY Primary Care Provider [phone] Reason for Visit * Reason Onset Date Comments Medication Refill 07/28/2022 Encounter Details Date Type Department Care Team (Late st Contact Info) Description 07/28/2022 Refill [place] [phone] Tal Eagle MD [facility] [address] Other complication of kidney transplant; Prophylactic immunotherapy; [...] PM EDT Office Visit Cardiology at [address] [phone] Jay Urban MD [facility] [place] [address] 04/15/2024 10:00 AM EDT Hospital Encounter Non-[place]vasive [place] [address] Arrived documented as of this [...] transplant documented in this encounter Care Teams Roll Reclaimer Relationship Specialty Start Date End Date Urbano Jimenez DO [address] [place] [address] PCP - General Family Medicine 03/18/22 Ruchi Valles RN Nurse Clinic Transplant Surgery 07/30/15 documented as of this encounter
--- OUTSIDE RECORDS SUMMARY | 2024-04-04 13:53 | XMS_ITS | Encounter Summary ---
Author Organization [facility] [place] [address] Care Team Providers Care Manager Photo Name Role Phone Urbano Jimenez Ray KIRBY Primary Care Provider [phone] Reason for Visit * Reason Comments Medication Refill Encounter Details Date Type Department Care Team (Late st Contact Info) Description 09/01/2022 Refill Cardiology at [address] [phone] Byron Brown MD [facility] [place] [address] Medication Refill Social History Tobacco Use Types [...] PM EDT Office Visit Cardiology at [address] [phone] Jay Urban MD [facility] [place] [address] 04/15/2024 10:00 AM EDT Hospital Encounter [place] [address] Arrived documented as of this encounter Goals [...] documented in this encounter Care Teams Manager Photo Relationship Specialty Start Date End Date Urbano Jimenez DO [address] [place] [address] PCP - General Family Medicine 03/18/22 Ruchi Valles RN Nurse Clinic Transplant Surgery 07/30/15 documented as of this encounter
--- OUTSIDE RECORDS SUMMARY | 2024-04-04 13:53 | XMS_ITS | Encounter Summary ---
Author Organization [facility] [address] Care Team Providers Care Flight Physician Name Role Phone Urbano Jimenez DO Primary Care Provider [phone] Reason for Visit * Auth/Cert (Routine) Specialty Diagnoses / Procedures Referred By Contac t Referred To Contact Diagnoses Other persistent atrial fibrillation Persistent atrial fibrillation S/P BATOOL 45D F/U Procedures PRG DAVEY REAL TIME IMG 2D W PRB IMG ACQUIS I&R TRANSESOPHAGEAL ECHOCARDIOGRAM (WRVU 2.55) Liseth Caelro MD [facility] [place] [address] [facility] Referral ID Status Reason Start Date Expiration Date Visits Re quested Visits Authorized [id number] 1 1 Encounter Details Date Type Department Care Team (Late st Contact Info) Description 07/15/2022 10:30 AM EST - 07/15/2022 11:30 AM EST Surgery [place] [address] Ruchi Park MD [facility] [place] [address] TRANSESOPHAGEAL ECHOCARDIOGRAM (WRVU 2.3) Social [...] Weight increase 08/12/2016 Allergies Allergen Reactions ??? Davis Physical Exam Last value Range last 24 [...] mary-device leak. No change in pericardial effusion. Hkjj-ox-mtyeu flow across atrial septostomy. See report for [...] patient is FULL CODE Cathie Palmer MD Manager Van documented in this encounter Plan of Treatment Upcoming Encounters Date Type Department Care Team (Late st Contact Info) Description 04/08/2024 1:40 PM EDT Office Visit Cardiology at [address] [phone] Jay Urban MD [facility] [place] [address] 04/15/2024 10:00 AM EDT Hospital Encounter Non-[place] [phone] Arrived documented as of this encounter Goals [...] Persistent atrial fibrillation DAVEY complete wo contrast (34999) 07/15/2022 10:47 AM EST Persistent atrial fibrillation [...] 1950 ? Height: 180 cm ? Account: [id number] Age: 71 yrs ? Weight: 100 kg Gender: Male ?BSA: 2.2 m2 Ordering Physician: GENA CHERRY Referring Physician: UNKNOWN Performed By: Cathie Palmer MD Reason For Study: Atrial fibrillation History: Post-Watchman Interpreting Fellow: Cathie Palmer. Exam Location: [facility]. Interpretation Summary Post-Watchman DAVEY follow up. There is a 27 mm Watchman FLX well seated in the ABTOOL position without evidence of thrombus or mary-device [...] 60 : 1950 Height: 180 cm Account: [id number] Age: 71 yrs Weight: 100 kg Gender: Male BSA: 2.2 m2 Ordering Physician: GENA CHERRY Referring Physician: UNKNOWN Performed By: Cathie Palmer MD Reason For Study: Atrial fibrillation History: Post-Watchman Interpreting Fellow: Cathie Palmer. Exam Location: [facility]. Interpretation Summary Post-Watchman DAVEY follow up. There [...] throat) documented in this encounter Care Teams Flight Physician Relationship Specialty Start Date End Date Urbano Jimenez DO [address] [place] [address] PCP - General Family Medicine 03/18/22 Ruchi Valles RN Nurse Clinic Transplant Surgery 07/30/15 documented as of this encounter
--- OUTSIDE RECORDS SUMMARY | 2024-04-04 13:53 | XMS_ITS | Encounter Summary ---
[place] [address] Care Team Providers Care Residential Service Technician Name Role Phone Urbano Jimenez DO Primary Care Provider [phone] Reason for Referral * Diagnostic Test (Routine) - Closed Specialty Diagnoses / Procedures Referred By Humberto flor Referred To Contact Cardiology Diagnoses Persistent atrial fibrillation Procedures Transesophageal Echocardiogram (DAVEY) Tal Diana MD [facility] [place] [address] [facility] [place] [address] Referral ID Status Reason Start Date Expiration Date V isits Requested Visits Authorized [id number] Closed Specialty Service Requested 07/06/2022 10/03/2022 1 1 Reason for Visit * Auth/Cert (Routine) Specialty Diagnoses / Procedures Referred By Humberto t Referred To Contact Diagnoses Other persistent atrial fibrillation Persistent atrial fibrillation S/P BATOOL 45D F/U Procedures PRG DAVEY REAL TIME IMG 2D W PRB IMG ACQUIS I&R TRANSESOPHAGEAL ECHOCARDIOGRAM (WRVU 2.55) Liseth Calero MD [facility] [place] [address] [facility] Referral ID Status Reason Start Date Expiration Date Visits Re quested Visits Authorized [id number] 1 1 Encounter Details Date Type Department Care Team (Late st Contact Info) Description 07/15/2022 9:37 AM EST - 07/15/2022 1:44 PM EST Hospital Encounter Same Day Program at [facility] [address] Liseth Calero MD [facility] [place] [address] Persistent atrial fibrillation Discharge Disposition: Home Social [...] Weight increase 08/12/2016 Allergies Allergen Reactions ??? Navarro Physical Exam Last value Range last 24 [...] mary-device leak. No change in pericardial effusion. Mevq-ub-hdjwo flow across atrial septostomy. See report for [...] patient is FULL CODE Cathie Palmer MD Storeroom Clerk documented in this encounter Plan of Treatment Upcoming Encounters Date Type Department Care Team (Late st Contact Info) Description 04/08/2024 1:40 PM EDT Office Visit Cardiology at [address] [address] Jay Urban MD [facility] [place] [address] 04/15/2024 10:00 AM EDT Hospital Encounter Non-Invasive [place] [phone] Arrived documented as of this encounter Goals Goal Patient Goal Type Associated Problems Recent Progress Patient-Stated? Author [facility] Medication Compliance and Understanding Patient Facing Action Plan On track( 017 10:41 AM EDT) No Selena Cisneros [facility] Note: Patient Goal: Clear hepatitis C Timeframe to meet goal: within 12 weeks of therapy documented as of this encounter Procedures Procedure Name Priority Date/Time Associated Diagnosis Comments DAVEY W LMTD SPECTRAL DOPPLER COLOR DOPPLER Routine 07/15/2022 12:43 PM EST Persistent atrial fibrillation DAVEY complete wo contrast (18778) 07/15/2022 10:47 AM EST Persistent atrial fibrillation documented in this encounter Results * DAVEY W LMTD SPECTRAL DOPPLER COLOR DOPPLER (07/15/2022 12:43 PM EST) Anatomical Region Laterality Modality Cardiac Other 07/15/2022 10:3 4 AM EST Narrative 07/15/2022 5:24 PM EST ? Transesophageal Echocardiogram Report Name: ETHEL AKINS Patricia ?Study Date: 07/15/2022 10:34 AMBP: 146/86 mmHg ? Patient Location: OR^ORMN^A HR: 60 : 1950 ? Height: 180 cm ? Account: [id number] Age: 71 yrs ? Weight: 100 kg Gender: Male ?BSA: 2.2 m2 Ordering Physician: GENA CHERRY Referring Physician: UNKNOWN Performed By: Cathie Palmer MD Reason For Study: Atrial fibrillation History: Post-Watchman Interpreting Fellow: Cathie Palmer. Exam Location: [facility]. Interpretation Summary Post-Watchman DAVEY follow up. [...] Echocardiogram Report Name: ETHEL AKINS Study Date: 310:34 AMBP: 146/86 mmHg Patient Location:OR^[facility]^A HR: 60 : 1950 Height: 180 cm Account: [id number] Age: 71 yrs Weight: 100 kg Gender: Male BSA: 2.2 m2 Ordering Physician: GENA CHERRY Referring Physician: UNKNOWN Performed By: Cathie Palmer MD Reason For Study: Atrial fibrillation History: Post-Watchman Interpreting Fellow: Cathie Palmer. Exam Location: [facility]. Interpretation Summary Post-Watchman DAVEY follow up. [...] PRN, Starting on Thu07/15/22 at 1051, Until Tu07/15/22 at 1545, Intra-Operative (Intra-Procedure) 1051 (Given - Provid er: Cathie Palmer MD - Comment: To Back of throat) documented in this encounter Care Teams Residential Service Technician Relationship Specialty Start Date End Date Urbano Jimenez DO [address] [place] [address] PCP - General Family Medicine 03/18/22 Ruchi Valles RN Nurse Clinic Transplant Surgery 07/30/15 documented as of this encounter
--- OUTSIDE RECORDS SUMMARY | 2024-04-04 13:53 | XMS_ITS | Encounter Summary ---
[place] [address] Care Team Providers Care Senior Media Director Name Role Phone Urbano Jimenez DO Primary Care Provider Reason for Referral * Diagnostic Test (Routine) - Closed Specialty Diagnoses / Procedures Referred By Humberto flor Referred To Contact Cardiology Diagnoses Cardiomyopathy, unspecified type Procedures Echocardiogram Transthoracic Shaq Damon MD [facility] [address] [facility] [place] [address] Referral ID Status Reason Start Date Expiration Date V isits Requested Visits Authorized [id number] Closed Specialty Service Requested 09/02/2022 09/02/2023 1 1 Encounter Details Date Type Department Care Team (Late st Contact Info) Description 09/02/2022 2:00 PM EST TH Visit (TeleHealth) Cardiology at [address] [phone] Shaq Damon MD [facility] [place] [address] Cardiomyopathy, unspecified type Social History [...] from the original note were not included. [facility] [place] [address] CARDIOLOGY/ VASCULAR OUTPATIENT NOTE Ethel Bolden Urbano [...] or more (he was seen at [facility] recently and told he did not have [...] complaints. He is establishing care with the [facility] as well. Meds: Current Outpatient Medications [...] lead Intrinsic P-wave chronically measured < 1 mV~~Ap:64.2%~Interior Block Wirer:10.0%~~Device Defined Counters:~Atrial Fibrillation/Flutter: 0~Trending illustrates atrial events [...] time Shaq Damon MD, FACC Cardiovascular Medicine [facility] [address] Clinic [phone] Clinic Team Nurse: [phone] Estimated time : 30 minutes total time in review of lab tests, evaluation, education of suggested medication, ordering medications and tests, communicating care coordination, and documentation of my findings and recommendations. documented in this encounter Plan of Treatment Upcoming Encounters Date Type Department Care Team (Late st Contact Info) Description 04/08/2024 1:40 PM EDT Office Visit Cardiology at [address] [phone] Jay Urban MD [facility] [address] [place] [id number] 04/15/2024 10:00 AM EDT Hospital Encounter Non[place] [phone] Arrived documented as of this encounter Goals Goal Patient Goal Type Associated Problems Recent Progress Patient-Stated? Author DH Paradise Medication Compliance and Understanding Patient Facing Action Plan On track( 017 10:41 AM EDT) Selena Scott, [facility] Note: [...] 1950 ? Height: 180 cm ? Account: [id number] Age: 72 yrs ? Weight: 101 kg Gender: Male ?BSA: 2.2 m2 Ordering Physician: SHAQ DAMON Referring Physician: SHAQ DAMON Performed By: Leila Max RDCS Reason For Study: Cardiomyopathy Exam Location: [facility]. Interpretation Summary 1. Left ventricular function is [...] 02/19/2022, LV function visually appears similar. Procedure Complete-[id number]. Left ventricular strain. Satisfactory quality. Left Ventricle [...] Location: : 1950 Height: 180 cm Account: [id number] Age: 72 yrs Weight: 101 kg Gender: Male BSA: 2.2 m2 Ordering Physician: SHAQ DAMON Referring Physician: SHAQ DAMON Performed By: Leila Max RDCS Reason For Study: Cardiomyopathy Exam Location: [facility]. Interpretation Summary 1. Left ventricular function is [...] echo 02/19/2022, LV function visually appearssimilar. Procedure Complete-[id number]. Left ventricular strain. Satisfactory quality. Left Ventricle [...] type documented in this encounter Care Teams Senior Media Director Relationship Specialty Start Date End Date Urbano Jimenez DO [address] [place] [address] PCP - General Family Medicine 03/18/22 Ruchi Valles RN Nurse Clinic Transplant Surgery 07/30/15 documented as of this encounter
--- OUTSIDE RECORDS SUMMARY | 2024-04-04 13:53 | XMS_ITS | Encounter Summary ---
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 device for any [...] PM EDT Office Visit Cardiology at [address] [phone] Jay Urban MD [facility] [place] [address] 04/15/2024 10:00 AM EDT Hospital Encounter Non[place] [phone] Arrived documented as of this encounter Goals [...] on filedocumented in this encounter Care Teams Tissue Rewinder Relationship Specialty Start Date End Date Urbano Jimenez DO [address] [place] [address] PCP - General Family Medicine 03/18/22 Ruchi Valles RN Nurse Clinic Transplant Surgery 07/30/15 documented as of this encounter
--- OUTSIDE RECORDS SUMMARY | 2024-04-04 13:53 | XMS_ITS | Encounter Summary ---
Author Organization [facility] [place] [address] Care Team Providers Care Hand Inspector Name Role Phone Urbano Jimenez DO Primary Care Provider [phone] Encounter Details Date Type Department Care Team (Latest Contact Info) Description 08/06/2022 Orders Only [place] [address] Urbano Houston LPN H/O kidney transplant; intermediate current use of immunosuppressive drug; Vitamin D [...] PM EDT Office Visit Cardiology at [address] [phone] Jay Urban MD [facility] [address] [place] [address] 04/15/2024 10:00 AM EDT Hospital Encounter Non-[place]vasive [place] [address] Arrived documented as of this [...] 9:02 AM EDT) Creatinine, Urine 86 mg/dL [facility] Protein, Urine 20(H) 0 - 12 mg/dL [facility] Protein / Creatinine Ratio, Urine 0.2 ratio [facility] Urine 10/10/2022 9:02 AM EDT 10/10/2022 9:08 AM EDT Narrative Resulting Agency Comment Spec In Lab Gurdeep Boston APRN URINE ORDERABLES Performing Organization Address City/State/[facility] Co de Phone Number [facility] [place] [address] * (ABNORMAL) Urinalysis with reflex Culture (10/10/2022 9:02 AM EDT) Glucose, Urine Dipstick Negative Negative mg/dL [facility] Protein, Urine Dipstick Trace(A) Negative mg/dL [facility] Bilirubin, Urine Dipstick Negative Negative mg/dL [facility] Comment: Clinical correlation required for positive Urine Bilirubin results as false positive may occur with some drugs and drug related products. If a false positive is suspected a serum total bilirubin should be considered if clinically indicated. Urobilinogen, Urine Dipstick Normal Normal mg/dL [facility] pH, Urn (dipstick) 7.0 5.0 - 8.0 [facility] Blood, Urine Dipstick Negative Negative mg/dL [facility] Ketone, Urine Dipstick Negative Negative mg/dL [facility] Nitrite, Urine Dipstick Negative Negative [facility] Leukocytes, Urine Dipstick Negative Negative mcL [facility] Appearance, Urine Dipstick Clear Clear [facility] Specific [place] Urine Automated 1.018 1.005 - 1.030 [facility] Color, Urine Dipstick Yellow Yellow [facility] Reflex to Culture No [facility] Clean Catch Urine 10/10/2022 9:02 AM EDT 10/10/2022 9:08 AM EDT Narrative Resulting Agency Comment Spec In Lab Gurdeep Boston APRN URINE ORDERABLES Performing Organization Address [facility] Co de Phone Number [facility] [place] [address] * BKV Quant Blood (10/10/2022 8:22 AM EDT) BKV Blood Result Not Detected Not Detected IU/mL [facility] Comment: Indication for Study: Monitoring BKV DNA Analysis: The ester BKV test is an in vitro nucleic acid amplification tests using real-time polymerase chain reaction (PCR) assay for the quantitative measurement of BK virus (BKV) DNA in human EDTA plasma. Sample: EDTA plasma Method: ester BKV test used with the Mobivery0 platform ([employer]) Linear Range: 21.5 - 1.0 x 10^8 IU/mL (1.33 - 8.00 log IU/mL) Note: The Kirsten ester BKV assay has been cleared by the U.S. Food and Drug Administration for clinical testing. Blood 10/10/2022 8:22 AM EDT 10/10/2022 10:31 AM EDT Narrative Resulting Agency Comment Spec In Lab Gurdeep Boston IVETH MOLECULAR ORDERABLES Performing Organization Address [facility] Co de Phone Number [facility] [place] [address] * Tacrolimus level (10/10/2022 8:22 AM EDT) Tacrolimus 6.2 ng/mL [facility] Comment: Trough therapeutic range is 3-15 [...] Agency Comment Spec In Lab Gurdeep Boston ASSOCIATE STORE MANAGER CHEMISTRY ORDERABLES Performing Organization Address City/[facility]/ZIP Co de Phone Number [facility] [place] [address] * Uric acid (10/10/2022 8:22 AM EDT) Uric Acid 6.4 3.5 - 8.5 mg/dL [facility] Blood 10/10/2022 8:22 AM EDT 10/10/2022 8:26 AM EDT Narrative Resulting Agency Comment Spec In Lab Gurdeep Boston ASSOCIATE STORE MANAGER CHEMISTRY ORDERABLES Performing Organization Address [facility] Co de Phone Number [facility] [place] [address] * (ABNORMAL) Magnesium (10/10/2022 8:22 AM EDT) Magnesium 0.64(L) 0.69 - 1.07 mmol/L [facility] Blood 10/10/2022 8:22 AM EDT 10/10/2022 8:26 AM EDT Narrative Resulting Agency Comment Spec In Lab Gurdeep Boston ASSOCIATE STORE MANAGER CHEMISTRY ORDERABLES Performing Organization Address City/[facility] Co de Phone Number [facility] [place] [address] * Phosphorus (10/10/2022 8:22 AM EDT) Phosphorus 2.5 2.5 - 4.5 mg/dL [facility] Blood 10/10/2022 8:22 AM EDT 10/10/2022 8:26 AM EDT Narrative Resulting Agency Comment Spec In Lab Gurdeep Rivasling ASSOCIATE STORE MANAGER CHEMISTRY ORDERABLES Performing Organization Address City/[facility] Co de Phone Number [facility] [place] [address] * Lipid Panel (Reflex Direct LDL) (10/10/2022 8:22 AM EDT) Cholesterol, Total 99 mg/dL [facility] Comment: Lower Risk: <200 mg/dL Average Risk: 200-239 mg/dL Higher Risk: >dz=002 mg/dL Triglyceride 197 mg/dL [facility] Comment: Average Risk/Lower Risk: <150 mg/dL Borderline High Risk: 150-199 mg/dL High Risk: 200-499 mg/dL Very High Risk: >jo=664 mg/dL HDL Cholesterol 35 mg/dL [facility] Comment: Males: ?? Higher Risk: <40 mg/dL Females: ?? Higher Risk: <50 mg/dL LDL Cholesterol 25 mg/dL [facility] Comment: Lowest Risk: <100 mg/dL Lower Risk: 100-129 mg/dL Borderline High Risk: 130-159 mg/dL High Risk: 160-189 mg/dL Very High Risk: >fm=321 mg/dL Cholesterol/HDL Ratio 2.8 ratio [facility] Lipid Interpretation See Note [facility] Comment: Lipid management should be guided by a patient? s ASCVD risk, goals and preferences. ACC/AHA Guidelines recommend high intensity statin if clinical ASCVD or LDL greater than or equal to 190 mg/dL. http://Optherion.com/HBB-CLM-Ojpqnhkqj Adults aged 40-75 with LDL 70-189 mg/dL should have their 10 year ASCVD risk estimated with the ACC/AHA ASCVD risk railroad maintenance clerk http://tools.acc.org/QXAUV-Bzlj-Awrpihtuf/ Statin should be discussed if risk greater [...] Agency Comment Spec In Lab Gurdeep Boston ASSOCIATE STORE MANAGER CHEMISTRY ORDERABLES [facility] [place] [place] [address] * (ABNORMAL) Comprehensive metabolic panel (non-fasting) (10/10/2022 8:22 AM EDT) Glucose 183 65 - 199 mg/dL [facility] Comment:Diabetes: >=200 mg/d L plus symptoms Blood Urea Nitrogen 15 10 - 20 mg/dL [facility] Creatinine 1.26 0.80 - 1.50 mg/dL [facility] Sodium 143 135 - 145 mmol/L [facility] Potassium 4.2 3.5 - 5.0 mmol/L [facility] Comment: Please note: ??Patients with WBC >100,000 may have falsely elevated Potassium levels. ??For accurate Potassium quantification in these patients send serum separator tube (gold top) for subsequent determinations. ??Contact the Clinical Chemistry Laboratory if there are any questions. Chloride 104 98 - 107 mmol/L [facility] Carbon Dioxide 28 22 - 31 mmol/L [facility] Anion Gap 11 5 - 15 mmol/L [facility] Calcium 9.9 8.5 - 10.5 mg/dL [facility] Protein, Total 7.2 6.1 - 8.0 g/dL [facility] Albumin 4.2 3.2 - 5.2 g/dL [facility] Aspartate Aminotransferase 22 0 - 39 unit/L [facility] Alanine Aminotransferase 22 0 - 55 unit/L [facility] Alkaline Phosphatase 84 40 - 130 unit/L [facility] Bilirubin, Total 2.0(H) 0.2 - 1.3 mg/dL [facility] Est Glomerular Filtration Rate 60 >=60 mL/min/1. 73 m?? [facility] Comment: This patient's estimated GFR [...] Agency Comment Spec In Lab Gurdeep Boston ASSOCIATE STORE MANAGER CHEMISTRY ORDERABLES Performing Organization Address City/[facility]/ZIP Co de Phone Number [facility] [place] [address] * (ABNORMAL) Reticulocyte Count (10/10/2022 8:22 AM EDT) Reticulocyte % 2.6 0.7 - 2.6 % [facility] Retic Abs # 0.120 0.030 - 0.120 x10(6)/mcL [facility] Immature Retic% 17.8(H) 0.0 - 15.6 % [facility] Reticulated Hgb 34.4 31.3 - 40.2 pg [facility] Blood 10/10/2022 8:22 AM EDT 10/10/2022 8:26 AM EDT Narrative Resulting Agency Comment Spec In Lab Gurdeep Boston ASSOCIATE STORE MANAGER HEMATOLOGY ORDERABLE S Performing Organization Address City/[facility] Co de Phone Number [facility] [place] [address] documented in this encounter Visit Diagnoses Diagnosis H/O kidney transplant 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
--- OUTSIDE RECORDS SUMMARY | 2024-04-04 13:53 | XMS_ITS | Encounter Summary ---
Author Organization [facility] Joel [facility] [place] [address] Care Team Providers Care Specialized Language Instructor Name Role Phone Tony Urbano Ray KIRBY Primary Care Provider [phone] Reason for Visit * Auth/Cert (Routine) Specialty Diagnoses / Procedures Referred By Contac t Referred To Contact Diagnoses Other persistent atrial fibrillation Persistent atrial fibrillation S/P BATOOL 45D F/U Procedures PRG DAVEY REAL TIME IMG 2D W PRB IMG ACQUIS I&R TRANSESOPHAGEAL ECHOCARDIOGRAM (WRVU 2.55) Liseth Calero MD [facility] [place] [address] [facility] Referral ID Status Reason Start Date Expiration Date Visits Re quested Visits Authorized [id number] 1 1 Encounter Details Date Type Department Care Team (Late st Contact Info) Description 07/15/2022 10:47 AM EST Anesthesia Event [place] [address] [facility] [place] [address] Destin Bond CRNA Anesthesia Record Procedure Summary [...] 1044; median cubital vein (antecubital fossa), right; ydtp-ask-povoru catheter system; Anatomical Landmarks; 20 gauge; ewelina; [...] Procedure Summary Date: 07/15/22 Room / Location: [facility] MINOR SURGERY / [facility] MAIN OR Anesthesia Start: 1046 Anesthesia Stop: 1114 Procedure: TRANSESOPHAGEAL ECHOCARDIOGRAM (WRVU 2.55) Diagnosis: Persistent atrial fibrillation (Persistent atrial fibrillation) Surgeons: Ruchi Park MD Responsible Provider: Joseph Vigil DO Anesthesia Type: general ASA Status: 3 All Anesthesia Providers: Anesthesiologist: Joseph Vigil DO SUPPLY SPECIALIST: Destin Bond CRNA Vitals Value Taken Time BP 122/74 07/15/22 1315 Temp 36.4 ??C (97.5 ??F) 07/15/22 1121 Pulse 64 07/15/22 1201 Resp 16 07/15/22 1300 SpO2 94 % 07/15/22 1321 Pain Level Vitals shown include unvalidated device data. Patient [facility]: [facility] [...] y.o. male. Procedure(s): TRANS[facility] Patient Active Problem List Diagnosis [...] deficiency 09/20/2017 ??? Prophylactic immunotherapy 09/22/2016 ??? group home current use of immunosuppressive drug 09/22/2016 ??? [...] [facility] HR [facility] 05/10/2020 FLUOROSCOPY (WRVU 0.17) performed by Joseph Ang MD at [facility] MAIN OR ??? PRO ANASTOMOSIS, AV, ANY SITE Left 05/09/2015 AV FISTULA CREATION, DIRECT HEMODIALYSIS, ANY SITE, EG ASHWINI FISTULA UPPER EXTREMITY performed by Que Amaro MD at [facility] OR ? ? PRO ARTHROPLASTY KNEE CONDYLE & PLATEAU MEDIAL & LAT COMPARTMENTS Right 11/25/2017 TOTAL KNEE ARTHROPLASTY (WRVU 20.72) performed by Breezy Dale MD at [facility] OR ??? PRO CYSTOURETHROSCOPY, URETER CATHETER Left 06/17/2018 CYSTO, RETROGRADE, URETEROPYELOGRAPHY (WRVU 2.37) [facility] Edinson [facility] III[facility] ??? PRO LAMINEC/FACETECT/FORAMIN, LUMBAR 1 SEG N/A 05/10/2020 LAMINECTOMY, FACETECTOMY & FORAMINOTOMY,LUMBAR, ONE LEVEL (WRVU 15.37) performed by Joseph Ang MD at [facility] OR ??? PRO LAMINOTOMY, LUMBAR DISK, 1 INTRSP N/A 05/10/2020 LAMINOTOMY, DECOMPRESSION, FORAMINOTOMY, LUMBAR (WRVU 13.18) performed by Joseph Ang MD at [facility] OR ??? PRO MICROSURG TECHNIQUES, REQ OPER MICROSCOPE N/A 05/10/2020 MICROSCOPE USE (WRVU 3.46) performed by Joseph Ang MD at [facility] OR ??? PRO PERQ CLSR TCAT L ATR APNDGE W/ENDOCARDIAL IMPLNT N/A 05/08/2022 @PERQ TRANSCATH CLOSURE LEFT ATRIAL APPENDAGE W ENDOCARDIAL IMPLANT, INC RAD S&I (WRVU 14) performed by Tal Diana MD at [facility] CATH LABS ??? PRO REIMPLANT URETER, SINGLE URETER Left 05/20/2016 @URETERONEOCYSTOSTOMY ANASTOMOSIS OF SINGLE URETER TO BLADDER performed by Santosh Arredondo MD at [facility] OR ??? PRO REIMPLANT URETER, SINGLE URETER N/A 05/20/2016 @URETERONEOCYSTOSTOMY ANASTOMOSIS OF SINGLE URETER TO BLADDER performed by Que Amaro MD at [facility] OR ??? PRO TRANSPLANT, PREP CADAVER RENAL GRAFT N/A 09/16/2015 @PREPARATION CADAVERIC RENAL ALLOGRAFT performed by Franko Larkin MD at [facility] OR ??? PRO TRANSPLANTATION OF KIDNEY N/A 09/16/2015 @KIDNEY TRANSPLANT, WITHOUT RECIPIENT NEPHRECTOMY performed by Franko Larkin MD at [facility] MAIN OR ??? TISSUE TRANSFER kidney ??? US RENAL TRANSPLANT LEFT Left 01/31/2019 US Renal Transplant Left 01/31/2019 [facility] RAD ULTRASOUND ??? US RENAL TRANSPLANT LEFT Left 02/07/2019 US Renal Transplant Left 02/07/2019 [facility] RAD ULTRASOUND Social History Tobacco Use ??? Smoking status: Light Smoker Types: Cigars ??? Smokeless tobacco: Never ??? Tobacco comments: cigars, one weekly Substance Use Topics ??? Alcohol use: No Social History Substance and Sexual Activity Drug Use Yes ??? Frequency: 7.0 times per week ??? Types: Marijuana Allergies Allergen Reactions ??? Stigler Medications: MAR and/or home medications have been [...] PM EDT Office Visit Cardiology at [address] [address] [facility] [place] [address] 04/15/2024 10:00 AM EDT Hospital Encounter Non-Invasive [place] [address] Arrived documented as of this encounter Goals [...] mg documented in this encounter Care Teams Specialized Language Instructor Relationship Specialty Start Date End Date Urbano Jimenez DO [address] [place] [address] PCP - General Family Medicine 03/18/22 Ruchi Valles RN Nurse Clinic Transplant Surgery 07/30/15 documented as of this encounter
--- OUTSIDE RECORDS SUMMARY | 2024-04-04 13:54 | XMS_ITS | Encounter Summary ---
Author Organization [facility] [place] [address] Care Team Providers Care Station Manager Name Role Phone Urbano Jimenez Ray KIRBY Primary Care Provider [phone] Encounter Details Date Type Department Care Team (Late st Contact Info) Description 04/01/2022 Orders Only Cardiology at [address] [phone] Mayco Barnes PA [facility] [address] Atrial fibrillation with RVR Social History Tobacco [...] PM EDT Office Visit Cardiology at [address] [phone] Jay Urban MD [facility] [place] [address] 04/15/2024 10:00 AM EDT Hospital Encounter Non-[place] [address] Arrived documented as of this encounter Goals [...] fibrillation documented in this encounter Care Teams Station Manager Relationship Specialty Start Date End Date Urbano Jimenez DO [facility] [place] [address] PCP - General Family Medicine 03/18/22 Ruchi Valles RN Nurse Clinic Transplant Surgery 07/30/15 documented as of this encounter
--- OUTSIDE RECORDS SUMMARY | 2024-04-04 13:54 | XMS_ITS | Encounter Summary ---
Author Organization Formerly [facility] [place] [address] Care Team Providers Care Bricklayer Name Role Phone Urbano Jimenez Ray KIRBY Primary Care Provider [phone] Encounter Details Date Type Department Care Team (Latest Contact Info) Description 03/18/2022 Orders Only [place] [phone] [facility] [place] [address] H/O kidney transplant; Vitamin D deficiency; detention current use of immunosuppressive drug Social History [...] 1:40 PM EDT Office Visit Cardiology at [address] [phone] [facility] [place] [address] 04/15/2024 10:00 AM EDT Hospital Encounter Non[place] [address] Arrived Scheduled Orders Name Type Priority Associated Diagnoses Orde r Schedule CBC (with Diff) Lab Routine H/O kidney transplant Vitamin D deficiency detention current use of immunosuppressive drug Expected: 03/18/2022, Expires: 09/16/2023 Comprehensive metabolic panel (non-fasting) Lab Routine H/O kidney transplant Vitamin D deficiency detention current use of immunosuppressive drug Expected: 03/18/2022, Expires: 09/16/2023 Phosphorus Lab Routine H/O kidney transplant Vitamin D deficiency detention current use of immunosuppressive drug Expected: 03/18/2022, Expires: 09/16/2023 Magnesium Lab Routine H/O kidney transplant Vitamin D deficiency roasterman current use of immunosuppressive drug Expected: 03/18/2022, Expires: 09/16/2023 Uric acid Lab Routine H/O kidney transplant Vitamin D deficiency roasterman current use of immunosuppressive drug Expected: 03/18/2022, Expires: 09/16/2023 Protein/Creatinine Ratio, urine Lab Routine H/O kidney transplant Vitamin D deficiency detention current use of immunosuppressive drug Expected: 03/18/2022, Expires: 09/16/2023 Lavender Tube HOLD Lab Routine H/O kidney transplant Vitamin D deficiency detention current use of immunosuppressive drug Expected: 03/18/2022, Expires: 09/16/2023 documented as of this encounter Goals Goal Patient Goal Type Associated Problems Recent Progress Patient-Stated? Author DH Home Medication Compliance and Understanding Patient Facing Action Plan On track( 017 10:41 AM EDT) Selena Scott [facility] Note: Patient Goal: Clear hepatitis C Timeframe to meet goal: within 12 weeks of therapy documented as of this encounter Results * Phosphorus, urine, random (03/18/2022 11:01 AM EDT) Phosphorus, Urine 26.0 mg/dL [facility] Urine 03/18/2022 11:0 1 AM EDT 03/18/2022 11:20 AM EDT Narrative Resulting Agency Comment Spec In Lab Tal Eagle MD URINE ORDERABLES Performing Organization Address City/[facility] Co de Phone Number [facility] [place] [address] * Magnesium, urine, random (03/18/2022 11:01 AM EDT) Magnesium, Urine 2.28 mmol/L [facility] Urine 03/18/2022 11:0 1 AM EDT 03/18/2022 11:20 AM EDT Narrative Resulting Agency Comment Spec In Lab Tal Eagle MD URINE ORDERABLES Performing Organization Address [facility] de Phone Number [facility] [place] [address] * Calcium Creatinine Ratio, random urine (03/18/2022 11:01 AM EDT) Calcium, Urine 11.9 mg/dL [facility] Creatinine, Urine 145 mg/dL [facility] Calcium / Creatinine Ratio, Urine 0.08 ratio [facility] Urine 03/18/2022 11:0 1 AM EDT 03/18/2022 11:20 AM EDT Narrative Resulting Agency Comment Spec In Lab Tal Eagle MD URINE ORDERABLES Performing Organization Address City/[facility] Co de Phone Number [facility] [place] [address] * BKV Quant Blood (03/18/2022 10:58 AM EDT) BKV Blood Result Not Detected Not Detected IU/mL [facility] Comment: Indication for Study: [...] MD MOLECULAR ORDERAB LES Performing Organization Address [facility] Co de Phone Number [facility] [place] [address] * Gold Tube HOLD (03/18/2022 10:58 AM EDT) Gold Hold Sample in lab. [facility] Blood 03/18/2022 10:5 8 AM EDT 03/18/2022 11:13 AM EDT Tal Eagle MD CHEMISTRY ORDERAB LES Performing Organization Address [facility] Co de Phone Number [facility] [place] [address] * 1,25-dihydroxycholecalciferol (03/18/2022 10:58 AM EDT) Vit D 1,25 Dihydroxy (NOVEMBER) 43 18 - 64 pg/mL [facility] Comment: ADDITIONAL INFORMATION This test was developed and its performance characteristics determined by [facility] in a manner consistent with CLIA requirements. This test has not been cleared or approved by the U.S. Food and Drug Administration. Test Performed by: [facility] - [address] [address] Transition Of Care Specialist: Edinson Garcia M.D. Ph.D.; CLIA# [id number] Blood 03/18/2022 10:5 8 AM EDT 03/18/2022 1:56 PM EDT Narrative Resulting Agency Comment Spec In Lab Tal Eagle MD LAB SEND OUT ORDBhargav JENNINGS Performing Organization Address [facility] Co de Phone Number [facility] [place] [address] * Vitamin D, 25-Hydroxy (03/18/2022 10:58 AM EDT) Vitamin D Total 25 OH 39 21 - 100 ng/mL [facility] Vit D Interp Sufficient [facility] Blood 03/18/2022 10:5 8 AM EDT 03/18/2022 11:13 AM EDT Narrative Resulting Agency Comment Spec In Lab Tal Eagle MD CHEMISTRY ORDERAB LES Performing Organization Address [facility] Co de Phone Number [facility] [place] [address] * PTH (03/18/2022 10:58 AM EDT) Parathyroid Hormone 38 15 - 65 pg/mL [facility] Blood 03/18/2022 10:5 8 AM EDT 03/18/2022 11:17 AM EDT Narrative Resulting Agency Comment Spec In Lab Tal Eagle MD CHEMISTRY ORDERAB LES Performing Organization Address [facility] Co de Phone Number [facility] [place] [address] * Reticulocyte Count (03/18/2022 10:58 AM EDT) Reticulocyte % 1.8 0.7 - 2.6 % [facility] Retic Abs # 0.080 0.030 - 0.120 x10(6)/mcL [facility] Immature Retic% 10.0 0.0 - 15.6 % [facility] Reticulated Hgb 35.2 31.3 - 40.2 pg [facility] Blood 03/18/2022 10:5 8 AM EDT 03/18/2022 11:15 AM EDT Narrative Resulting Agency Comment Spec In Lab Tal Eagle MD HEMATOLOGY UNIQUE PEDERSON [facility] [place] [address] * (ABNORMAL) Hemoglobin A1c (03/18/2022 10:58 AM EDT) Hemoglobin A1c 6.6(H) 4.3 - 5.6 % [facility] [...] Mellitus, Diabetes Care 2013; 36: Suppl. 1, S67-70 Estimated Average Glucose See note mg/dL [facility] [...] into estimated average glucose values. ??Diabetes Care 2008:31(8):6774-2573. Blood 03/18/2022 10:5 8 AM EDT 03/18/2022 11:17 AM EDT Narrative Resulting Agency Comment Spec In Lab Tal Eagle MD [place] [address] documented in this encounter Visit Diagnoses Diagnosis H/O kidney transplant Kidney replaced by transplant Vitamin D deficiency Unspecified vitamin D deficiency roasterman current use of immunosuppressive drug documented in this encounter Care Teams Bricklayer Relationship Specialty Start Date End Date Urbano Jimenez DO [address] [place] [address] PCP - General Family Medicine 03/18/22 Ruchi Valles RN Nurse Clinic Transplant Surgery 07/30/15 documented as of this encounter
--- OUTSIDE RECORDS SUMMARY | 2024-04-04 13:54 | XMS_ITS | Encounter Summary ---
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). He has no residual defects. Has [...] hepatitis) 08/25/2016 ??? Prophylactic immunotherapy 09/22/2016 ??? senior living current use of immunosuppressive drug 09/22/2016 ??? [...] EXAM UP TO [address] [facility]A 05/10/2020 ?? FLUOROSCOPY (WRVU 0.17) performed by Joseph Ang MD at [facility] OR ??? PRO ANASTOMOSIS, AV, ANY SITE Left 05/09/2015 ?? AV FISTULA CREATION, DIRECT HEMODIALYSIS, ANY SITE, EG ASHWINI FISTULA UPPER EXTREMITY performed by Que Amaro MD at [facility] OR ??? PRO CYSTOURETHROSCOPY, URETER CATHETER Left 06/17/2018 ?? CYSTO, RETROGRADE, URETEROPYELOGRAPHY (WRVU 2.37) performed by Edinson Grider III, MD at [facility] OR ??? PRO LAMINEC/FACETECT/FORAMIN, LUMBAR 1 SEG N/A 05/10/2020 ?? LAMINECTOMY, FACETECTOMY & FORAMINOTOMY,LUMBAR, ONE LEVEL (WRVU 15.37) performed by Joseph Ang MD at [facility] OR ??? PRO LAMINOTOMY, LUMBAR DISK, 1 INTRSP N/A 05/10/2020 ?? LAMINOTOMY, DECOMPRESSION, FORAMINOTOMY, LUMBAR (WRVU 13.18) performed by Joseph nAg MD at [facility] OR ??? PRO MICROSURG TECHNIQUES, REQ OPER MICROSCOPE N/A 05/10/2020 ?? MICROSCOPE USE (WRVU 3.46) performed by Joseph Ang MD at [facility] OR ??? PRO REIMPLANT URETER, SINGLE URETER Left 05/20/2016 ?? @URETERONEOCYSTOSTOMY ANASTOMOSIS OF SINGLE URETER TO BLADDER performed by Santosh Arredondo MD [facility] OR ??? PRO REIMPLANT URETER, SINGLE URETER N/A 05/20/2016 ?? @URETERONEOCYSTOSTOMY ANASTOMOSIS OF SINGLE URETER TO BLADDER performed by Akhil Amaro MD at [facility] OR ??? PRO TOTAL KNEE ARTHROPLASTY Right 11/25/2017 ?? TOTAL KNEE ARTHROPLASTY (WRVU 20.72) performed by Breezy Dale MD at [facility] OR ??? PRO TRANSPLANT, PREP CADAVER RENAL GRAFT N/A 09/16/2015 ?? @PREPARATION CADAVERIC RENAL ALLOGRAFT performed by Franko Larkin MD at [facility] OR ??? PRO TRANSPLANTATION OF KIDNEY N/A 09/16/2015 ?? @KIDNEY TRANSPLANT, WITHOUT RECIPIENT NEPHRECTOMY [facility] ??? TISSUE TRANSFER ? kidney ??? US RENAL TRANSPLANT LEFT Left 01/31/2019 ?? US Renal Transplant Left 01/31/2019 [facility] ??? US RENAL TRANSPLANT LEFT Left 02/07/2019 ?? US Renal Transplant Left 02/07/2019 [facility]TR[facility]OUND ? Current Outpatient Medications: ??? [...] Quadrivalent (6-35 Mos) 04/04/2015 ??? Moderna Covid-19 (Hotel Front Office Manager 100mcg) Vaccine 09/05/2020, 10/03/2020, 05/11/2021 ??? Pneumococcal [...] for diabetics, every 5 for non diabetics [place] kidney ultrasound looking for renal cell CA, [...] from 05/23/2022 in Solid Organ Transplant at [facility] Weight 103.8 kg (228 lb 12.8 oz) [...] Yellow Yellow Appearance UA Clear Clear Spec [place] UA 1.005 - 1.030 1.020 pH UA [...] ? Immunosuppression -Prograf, Cellcept ?? Proteinuria Likely [place] kidney involvement, no nephrosis ? PO4/Mg - Kphos.??2 tabs bid?? - Magnesium??gluconate [id number] TID ?? Erythrocytosis -??cont' to observe No [...] watchful waiting in anticipation of progression ? [id number] labs f/u 12 months ?? ? Discussion with the patient and/or family concerned the following: ?Diagnostic results or recommended studies ?Prognosis; ?Risks and benefits of management; ?Instructions for management; ?Compliance with treatment; ?Risk factor reduction; ?Patient and family education. ? Total time?25 of 30 min??in direct face to face in house counsel. documented in this encounter Plan of Treatment Upcoming Encounters Date Type Department Care Team (Late st Contact Info) Description 04/08/2024 1:40 PM EDT Office Visit Cardiology at [address] [address] Jay Urban MD [facility] [place] [address] 04/15/2024 10:00 AM EDT Hospital Encounter Non-Invasive [place] [address] Arrived documented as of this encounter Goals [...] Blood Result Not Detected Not Detected IU/mL [facility] Comment: Indication for Study: Monitoring BKV DNA Analysis: The ester BKV test is an in vitro nucleic acid amplification tests using real-time polymerase chain reaction (PCR) assay for the quantitative measurement of BK virus (BKV) DNA in human EDTA plasma. Sample: EDTA plasma Method: ester BKV test used with the Wearhaus0 platform (PowerMessage) Linear Range: 21.5 - 1.0 x 10^8 IU/mL (1.33 - 8.00 log IU/mL) Note: The Kirsten ester BKV assay has been cleared by the U.S. Food and Drug Administration for clinical testing. Blood 05/23/2022 9:10 AM EST 05/23/2022 10:53 AM EST Narrative Resulting Agency Comment Spec In Lab Tal Eagle MD MOLECULAR ORDERAB LES [facility] [place] [address] * Tacrolimus level (05/23/2022 9:10 AM EST) Tacrolimus 8.6 ng/mL [facility] Comment: Trough therapeutic range is [...] MD CHEMISTRY ORDERAB LES Performing Organization Address [facility] Co de Phone Number [facility] [place] [address] * Reticulocyte Count (05/23/2022 9:10 AM EST) Reticulocyte % 2.0 0.7 - 2.6 % [facility] Retic Abs # 0.090 0.030 - 0.120 x10(6)/mcL [facility] Immature Retic% 12.0 0.0 - 15.6 % [facility] Reticulated Hgb 31.8 31.3 - 40.2 pg [facility] Blood 05/23/2022 9:10 AM EST 05/23/2022 9:17 AM EST Narrative Resulting Agency Comment Spec In Lab Tal Eagle MD HEMATOLOGY ORDERA BLES Performing Organization Address [facility] Phone Number [facility] [place] [address] * (ABNORMAL) Comprehensive metabolic panel (non-fasting) (05/23/2022 9:04 AM EST) Glucose 140 65 - 199 mg/dL [facility] Comment:Diabetes: >=200 mg/d L plus symptoms Blood Urea Nitrogen 21(H) 10 - 20 mg/dL [facility] Creatinine 1.60(H) 0.80 - 1.50 mg/dL [facility] Sodium 141 135 - 145 mmol/L [facility] Potassium 4.3 3.5 - 5.0 mmol/L [facility] Comment: Please note: ??Patients with WBC >100,000 may have falsely elevated Potassium levels. ??For accurate Potassium quantification in these patients send serum separator tube (gold top) for subsequent determinations. ??Contact the Clinical Chemistry Laboratory if there are any questions. Chloride 103 98 - 107 mmol/L [facility] Carbon Dioxide 29 22 - 31 mmol/L [facility] Anion Gap 9 5 - 15 mmol/L [facility] Calcium 10.1 8.5 - 10.5 mg/dL [facility] Protein, Total 7.3 6.1 - 8.0 g/dL [facility] Albumin 4.0 3.2 - 5.2 g/dL [facility] Aspartate Aminotransferase 15 0 - 39 unit/L [facility] Alanine Aminotransferase 16 0 - 55 unit/L [facility] Alkaline Phosphatase 80 40 - 130 unit/L [facility] Bilirubin, Total 2.0(H) 0.2 - 1.3 mg/dL [facility] Est Glomerular Filtration Rate 45(L) >=60 mL/min/1. 73 m?? [facility] Comment: This patient's estimated GFR [...] MD CHEMISTRY ORDERAB LES [facility] [place] [address] * (ABNORMAL) Magnesium (05/23/2022 9:04 AM EST) Magnesium 0.66(L) 0.69 - 1.07 mmol/L [facility] Blood 05/23/2022 9:04 AM EST 05/23/2022 9:21 AM EST Narrative Resulting Agency Comment Spec In Lab Tal Eagle MD CHEMISTRY ORDERAB LES Performing Organization Address City/[facility] Co de Phone Number [facility] [place] [address] * Phosphorus (05/23/2022 9:04 AM EST) Phosphorus 3.0 2.5 - 4.5 mg/dL [facility] Blood 05/23/2022 9:04 AM EST 05/23/2022 9:21 AM EST Narrative Resulting Agency Comment Spec In Lab Tal Eagle MD CHEMISTRY ORDERAB LES Performing Organization Address [facility] Co de Phone Number [facility] [place] [address] * Uric acid (05/23/2022 9:04 AM EST) Uric Acid 7.5 3.5 - 8.5 mg/dL [facility] Blood 05/23/2022 9:04 AM EST 05/23/2022 9:21 AM EST Narrative Resulting Agency Comment Spec In Lab Tal Eagle MD CHEMISTRY ORDERAB LES Performing Organization Address City/[facility] Co de Phone Number [facility] [place] [address] * Cholesterol, total (05/23/2022 9:04 AM EST) Cholesterol, Total 71 mg/dL [facility] Comment: Lower Risk: <200 mg/dL Average Risk: 200-239 mg/dL Higher Risk: >vg=286 mg/dL Lipid Interpretation See Note [facility] Comment: Lipid management should be guided by a patient? s ASCVD risk, goals and preferences. ACC/AHA Guidelines recommend high intensity statin if clinical ASCVD or LDL greater than or equal to 190 mg/dL. http://[employer] Mexicanaurl.com/BBV-WAI-Icehvnzww Adults aged 40-75 with LDL 70-189 mg/dL should have their 10 year ASCVD risk estimated with the ACC/AHA ASCVD risk photocomposing machine operator http://tools.acc.org/ODVRK-Livv-Hlhebfhtj/ Statin should be discussed if risk greater [...] Address City/[facility]/ZIP Co de Phone Number [facility] [place] [address] * (ABNORMAL) Protein/Creatinine Ratio, urine (05/23/2022 8:56 AM EST) Creatinine, Urine 125 mg/dL [facility] Protein, Urine 38(H) 0 - 12 mg/dL [facility] Protein / Creatinine Ratio, Urine 0.3 ratio [facility] Urine 05/23/2022 8:56 AM EST 05/23/2022 9:10 AM EST Narrative Resulting Agency Comment Spec In Lab Tal Eagle MD URINE ORDERABLES Performing Organization Address City/[facility]/ZIP Co de Phone Number [facility] [place] [address] * (ABNORMAL) Urinalysis with reflex Culture (05/23/2022 8:56 AM EST) Glucose, Urine Dipstick Negative Negative mg/dL [facility] Protein, Urine Dipstick 100(A) Negative mg/dL [facility] Bilirubin, Urine Dipstick Negative Negative mg/dL [facility] Comment: Clinical correlation required for positive Urine Bilirubin results as false positive may occur with some drugs and drug related products. If a false positive is suspected a serum total bilirubin should be considered if clinically indicated. Urobilinogen, Urine Dipstick Normal Normal mg/dL [facility] pH, Urn (dipstick) 6.5 5.0 - 8.0 [facility] Blood, Urine Dipstick Negative Negative mg/dL [facility] Ketone, Urine Dipstick Negative Negative mg/dL [facility] Nitrite, Urine Dipstick Negative Negative [facility] Leukocytes, Urine Dipstick Negative Negative [facility] Appearance, Urine Dipstick Clear Clear [facility] Specific [place] Urine Automated 1.020 1.005 - 1.030 [facility] Color, Urine Dipstick Yellow Yellow [facility] Reflex to Culture No [facility] Clean Catch Urine 05/23/2022 8:56 AM EST 05/23/2022 9:08 AM EST Narrative Resulting Agency Comment Spec In Lab Tal Eagle MD URINE ORDERABLES Performing Organization Address City/State/[facility] Co de Phone Number [facility] [place] [address] documented in this encounter Visit Diagnoses Diagnosis H/O kidney transplant Kidney replaced by transplant Vitamin D deficiency Unspecified vitamin D deficiency 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
--- OUTSIDE RECORDS SUMMARY | 2024-04-04 13:54 | XMS_ITS | Encounter Summary ---
[place] [address] Care Team Providers Care Alodize Machine Helper Name Role Phone Urbano Jimenez DO Primary Care Provider [phone] Encounter Details Date Type Department Care Team (Late st Contact Info) Description 04/30/2022 Telephone Cardiology at [address] [phone] Jena Lombardi Social History Tobacco Use Types [...] have his inclinic PM checks done at [facility]. Message sent to Timothy at [facility] asking for pt to be scheduled for next PM check in Aug 2022. Pt is having a watchman placed on 05/08/22 and we will be checking his device at that time. Jena Lombardi EP Scheduling documented in this encounter Plan of Treatment Upcoming Encounters Date Type Department Care Team (Late st Contact Info) Description 04/08/2024 1:40 PM EDT Office Visit Cardiology at [address] [phone] Jay Urban MD [facility] [place] [address] 04/15/2024 10:00 AM EDT Hospital Encounter Non-[place] [phone] Arrived documented as of this encounter Goals Goal Patient Goal Type Associated Problems Recent Progress Patient-Stated? Author [facility] Medication Compliance and Understanding Patient Facing Action Plan On track( 017 10:41 AM EDT) Selena Scott, [facility] Note: Patient Goal: Clear hepatitis C Timeframe to meet goal: within 12 weeks of therapy documented as of this encounter Visit Diagnoses Not on filedocumented in this encounter Care Teams Alodize Machine Helper Relationship Specialty Start Date End Date Urbano Jimenez DO [address] [place] [id number] PCP - General Family Medicine 03/18/22 Ruchi Valles RN Nurse Clinic Transplant Surgery 07/30/15 documented as of this encounter
--- OUTSIDE RECORDS SUMMARY | 2024-04-04 13:54 | XMS_ITS | Encounter Summary ---
Author Organization 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 Social History [...] PM EDT Office Visit Cardiology at [address] [phone] Jay Urban MD [facility] [place] [address] 04/15/2024 10:00 AM EDT Hospital Encounter Non-[place] [address] Arrived documented as of this encounter Goals [...] EST H/O kidney transplant Vitamin D deficiency FPC current use of immunosuppressive drug HEMOGRAM STAT 05/23/2022 9:10 AM EST H/O kidney transplant Vitamin D deficiency FPC current use of immunosuppressive drug DIFFERENTIAL, AUTOMATED STAT 05/23/2022 9:10 AM EST H/O kidney transplant Vitamin D 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 HC FK-506 (TACROLIMUS) STAT 05/23/2022 9:10 AM EST H/O kidney transplant Vitamin D 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 HC RETIC,AUTO INCLUDES RETHE & IRF STAT 05/23/2022 9:10 AM EST H/O kidney transplant Vitamin D 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 HC CBC,PLT & AUTO DIFF STAT 05/23/2022 9:10 AM EST H/O kidney transplant Vitamin D deficiency FPC current use of immunosuppressive drug HC URIC ACID, SERUM STAT 05/23/2022 9 :04 AM EST H/O kidney transplant Vitamin D 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 HC PHOSPHORUS, SERUM STAT 05/23/2022 9:04 AM EST H/O kidney transplant Vitamin D deficiency FPC current use of immunosuppressive drug HC MAGNESIUM, SERUM STAT 05/23/2022 9 :04 AM EST H/O kidney transplant Vitamin D 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 HC CHOLESTEROL STAT 05/23/2022 9:04 AM EST H/O kidney transplant Vitamin D deficiency FPC current use of immunosuppressive drug HC VENIPUNCTURE STAT 05/23/2022 9:04 AM EST H/O kidney transplant Vitamin D 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 URINALYSIS MICROSCOPIC EXAM STAT 05/23/2022 8:56 AM EST HC PROTEIN, QUANTITATIVE, URINE STAT 05/23/2022 8:56 AM EST H/O kidney transplant Vitamin D deficiency FPC current use of immunosuppressive drug URINALYSIS WITH REFLEX CULTURE STAT 05/23/2022 8:56 AM EST H/O kidney transplant Vitamin D deficiency FPC current use of immunosuppressive drug documented in this encounter Results * Differential, Automated (05/23/2022 9:10 AM EST) Neutrophil % 69.4 % [facility] Neutrophil Absolute 5.97 1.70 - 6.10 x10(3)/[facility] Lymph % 19.5 % [facility] Lymphocytes Abs 1.7 0.9 - 3.2 x10(3)/[facility] Monocyte % 7.3 % [facility] Monocyte Abs 0.6 0.3 - 0.9 x10(3)/[facility] Eos % 2.9 % [facility] Eosinophils Abs 0.2 0.0 - 0.4 x10(3)/[facility] Basophil % 0.7 % [facility] Baso Absolute 0.1 0.0 - 0.1 x10(3)/[facility] Immature Gran % 0.20 % [facility] Comment: Immature granulocytes(IG's)percentage and absolute count will include metamyelocytes, myelocytes, and promyelocytes. Blood smears from CBCs yielding IG's will be scanned manually for concordance. If this scan disagrees with the automated IG or if promyelocytes are noted, a manual differential will be performed. Immature Gran Absolute 0.02 0.00 - 0.04 x10(3)/mcL [facility] Blood 05/23/2022 9:10 AM EST 05/23/2022 9:17 AM EST Narrative Resulting Agency Comment Spec In Lab Tal Eagle MD HEMATOLOGY ORDERA BLES [facility] [place] [address] * (ABNORMAL) Hemogram (05/23/2022 9:10 AM EST) White Blood Cell 8.6 4.0 - 9.5 x10(3)/mc L [facility] Red Blood Cell 4.57(L) 4.58 - 5.54 x10(6)/mc L [facility] Hemoglobin 13.7 13.7 - 16.5 g/dL [facility] Hematocrit 41.7 40.5 - 48.5 % [facility] Mean Cell Volume 91.2 82.9 - 93.[address] [facility] Mean Cell Hemoglobin 30.0 27.5 - 32.[address] [facility] Mean Cell Hemoglobin Concentration 32.9 32.0 - 35.7 g/dL [facility] Platelet 305 145 - 357 x10(3)/mc L [facility] RDW Standard Deviation 41.8 36.0 - 45.[address] [facility] RDW coefficient of variation 12.8 11.4 - 13.8 % [facility] Mean Platelet Volume 9.0 7.6 - 12.[address] [facility] NRBC% auto 0.0 % [facility] NRBC Absolute 0.000 0.000 - 0.000 x10(3)/mc L [facility] Blood 05/23/2022 9:10 AM EST 05/23/2022 9:17 AM EST Narrative Resulting Agency Comment Spec In Lab Tal Eagle MD HEMATOLOGY ORDERA BLES Performing Organization Address [facility]/ZIP Co de Phone Number [facility] [place] [address] * Tacrolimus level (05/23/2022 9:10 AM EST) Pathologist [facility] Tacrolimus 8.6 ng/mL [facility] [...] ORDERAB LES Performing Organization Address [facility] Co de Phone Number [facility] [place] [address] * Reticulocyte Count (05/23/2022 9:10 AM EST) [facility] Reticulocyte % 2.0 0.7 - 2.6 [...] City/[facility]/ZIP Co de Phone Number [facility] [place] [address] * BKV Quant Blood (05/23/2022 9:10 AM EST) Pathologist [facility] BKV Blood Result Not Detected Not Detected IU/mL [facility] Comment: Indication for Study: Monitoring BKV DNA Analysis: The ester BKV test is an in vitro nucleic acid amplification tests using real-time polymerase chain reaction (PCR) assay for the quantitative measurement of BK virus (BKV) DNA in human EDTA plasma. Sample: EDTA plasma Method: ester BKV test used with the [employer]0 platform (Safe N Clear) Linear Range: 21.5 - 1.0 x 10^8 IU/mL (1.33 - 8.00 log IU/mL) Note: The Kirsten ester BKV assay has been cleared by the U.S. Food and Drug Administration for clinical testing. Blood 05/23/2022 9:10 AM EST 05/23/2022 10:53 AM EST Narrative Resulting Agency Comment Spec In Lab Tal Eagle MD MOLECULAR ORDERAB LES Performing Organization Address City/State/[facility] Co de Phone Number [facility] [place] [address] * Cholesterol, total (05/23/2022 9:04 AM EST) [facility] Cholesterol, Total 71 mg/dL [facility] Comment: Lower Risk: <200 mg/dL Average Risk: 200-239 mg/dL Higher Risk: >zq=625 mg/dL Lipid Interpretation See Note [facility] Comment: Lipid management should be guided by a patient? s ASCVD risk, goals and preferences. ACC/AHA Guidelines recommend high intensity statin if clinical ASCVD or LDL greater than or equal to 190 mg/dL. http://tinyurl.com/CLH-XMT-Sczvjwnhc Adults aged 40-75 with LDL 70-189 mg/dL should have their 10 year ASCVD risk estimated with the ACC/AHA ASCVD risk automobile repair service estimator http://tools.acc.org/DYAPW-Nmgt-Wkrjhvrzc/ Statin should be discussed if risk greater [...] CHEMISTRY ORDERAB LES [facility] [place] [address] * Uric acid (05/23/2022 9:04 AM EST) Uric Acid 7.5 3.5 - 8.5 mg/dL [facility] Blood 05/23/2022 9:04 AM EST 05/23/2022 9:21 AM EST Narrative Resulting Agency Comment Spec In Lab Tal Eagle MD CHEMISTRY ORDERAB LES Performing Organization Address City/[facility]/ZIP Co de Phone Number [facility] [place] [address] * Phosphorus (05/23/2022 9:04 AM EST) Phosphorus 3.0 2.5 - 4.5 mg/dL [facility] Blood 05/23/2022 9:04 AM EST 05/23/2022 9:21 AM EST Narrative Resulting Agency Comment Spec In Lab Tal Eagle MD CHEMISTRY ORDERAB LES Performing Organization Address [facility] Co de Phone Number [facility] [place] [address] * (ABNORMAL) Magnesium (05/23/2022 9:04 AM EST) Magnesium 0.66(L) 0.69 - 1.07 mmol/L [facility] Blood 05/23/2022 9:04 AM EST 05/23/2022 9:21 AM EST Narrative Resulting Agency Comment Spec In Lab Tal Eagle MD CHEMISTRY ORDERAB LES [facility] [place] [address] * (ABNORMAL) Comprehensive metabolic panel (non-fasting) (05/23/2022 9:04 AM EST) Glucose 140 65 - 199 mg/dL ST [...] ORDERAB LES Performing Organization Address [facility] Co de Phone Number [facility] [place] [address] * Urinalysis Microscopic Exam (05/23/2022 8:56 AM EST) RBC, Urine 1 0 - 3 /HPF [facility] WBC, Urine 1 0 - 3 /HPF [facility] Squamous Epithelial Cells Raw Data, Urine 1 <=4 /HPF [facility] Clean Catch Urine 05/23/2022 8:56 AM EST 05/23/2022 9:08 AM EST Narrative Resulting Agency Comment Spec In Lab Tal Eagle MD URINE ORDERABLES Performing Organization Address City/[facility]/ZIP Co de Phone Number [facility] [place] [address] * (ABNORMAL) Urinalysis with reflex Culture (05/23/2022 [...] LABORATORY Leukocytes, Urine Dipstick Negative Negative [facility] Appearance, Urine Dipstick Clear Clear [facility] Specific [place] Urine Automated 1.020 1.005 - 1.030 [facility] Color, Urine Dipstick Yellow Yellow [facility] Reflex to Culture No [facility] Clean Catch Urine 05/23/2022 8:56 AM EST 05/23/2022 9:08 AM EST Narrative Resulting Agency Comment Spec In Lab Tal Eagle MD URINE ORDERABLES Performing Organization Address [facility] Co de Phone Number [facility] [place] [address] * (ABNORMAL) Protein/Creatinine Ratio, urine (05/23/2022 8:56 AM EST) Creatinine, Urine 125 mg/dL [facility] Protein, Urine 38(H) 0 - 12 mg/dL [facility] Protein / Creatinine Ratio, Urine 0.[address] [facility] Urine 05/23/2022 8:56 AM EST 05/23/2022 9:10 AM EST Narrative Resulting Agency Comment Spec In Lab Tal Eagle MD URINE ORDERABLES Performing Organization Address City/[facility]/ZIP Co de Phone Number [facility] [place] [address] documented in this encounter Visit Diagnoses Diagnosis H/O kidney transplant Kidney replaced by transplant Vitamin D deficiency Unspecified vitamin D 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
--- OUTSIDE RECORDS SUMMARY | 2024-04-04 13:54 | XMS_ITS | Encounter Summary ---
Author Organization [facility] [place] [address] Care Team Providers Care Blow Mold Machine Operator Name Role Phone Urbano Jimenez Ray KIRBY Primary Care Provider [phone] Encounter Details Date Type Department Care Team [...] PM EDT Office Visit Cardiology at [address] [phone] Jay Urban MD [facility] [place] [address] 04/15/2024 10:00 AM EDT Hospital Encounter Non-[place] [phone] Arrived documented as of this encounter Goals Goal Patient Goal Type Associated Problems Recent Progress Patient-Stated? Author [facility] Medication Compliance and Understanding Patient Facing Action Plan On track( 017 10:41 AM EDT) Selena Scott, [facility] Note: Patient Goal: Clear hepatitis C Timeframe to meet goal: within 12 weeks of therapy documented as of this encounter Visit Diagnoses Not on filedocumented in this encounter Care Teams Blow Mold Machine Operator Relationship Specialty Start Date End Date Urbano Jimenez DO [address] [place] [address] PCP - General Family Medicine 03/18/22 Ruchi Valles RN Nurse Clinic Transplant Surgery 07/30/15 documented as of this encounter
--- OUTSIDE RECORDS SUMMARY | 2024-04-04 13:54 | XMS_ITS | Encounter Summary ---
Author Organization [facility] [place] [address] Care Team Providers Care Chocolate Packer Name Role Phone Urbano Jimenez Ray KIRBY Primary Care Provider [phone] Encounter Details Date Type Department Care Team (Late st Contact Info) Description 06/02/2022 Unscheduled Encounter Cardiology at [address] [phone] Mara Holman APRN [facility] [place] [address] Pacemaker Social History Tobacco Use Types Packs/Day [...] 1:40 PM EDT Office Visit Cardiology at [address] [phone] Jay Urban MD [facility] [place] [address] 04/15/2024 10:00 AM EDT Hospital Encounter Non-Invasive Cardiology Lab [facility] [place] [phone] Arrived documented as of this encounter Goals Goal Patient Goal Type Associated Problems Recent Progress Patient-Stated? Author [facility] Medication Compliance and Understanding Patient Facing Action Plan On track( 017 10:41 AM EDT) No Selena Cisneros, [facility] Note: Patient Goal: Clear hepatitis C Timeframe to meet goal: within 12 weeks of therapy documented as of this encounter Visit Diagnoses Diagnosis Pacemaker Cardiac pacemaker in situ documented in this encounter Care Teams Chocolate Packer Relationship Specialty Start Date End Date Urbano Jimenez DO [address] [place] [id number] PCP - General Family Medicine 03/18/22 Ruchi Valles RN Nurse Clinic Transplant Surgery 07/30/15 documented as of this encounter
--- OUTSIDE RECORDS SUMMARY | 2024-04-04 13:54 | XMS_ITS | Encounter Summary ---
Author Organization [facility] [place] [address] Care Team Providers Care Regional Economic Liaison Name Role Phone Urbano Jimenez DO Primary Care Provider [phone] Reason for Visit * Auth/Cert Specialty Diagnoses / Procedures Referred By Contpaula t Referred To Contact Diagnoses Persistent atrial fibrillation [I48.19] Watchman Procedures PRO PERQ CLSR TCAT L ATR APNDGE W/ENDOCARDIAL IMPLNT CARDIAC CATHETERIZATION @PERQ TRANSCATH CLOSURE LEFT ATRIAL APPENDAGE W ENDOCARDIAL IMPLANT, INC RAD S&I (WRVU 14) TRANSESOPHAGEAL ECHO DURING CATH/EP PROCEDURE Madhu Diana MD [facility] [place] [address] [facility] Referral ID Status Reason Start Date Expiration Date Visits Re quested Visits Authorized [id number] 1 1 Encounter Details Date Type Department Care Team (Late st Contact Info) Description 05/08/2022 9:30 AM EDT - 05/08/2022 11:58 AM EDT Surgery [place] [address] Madhu Diana MD [facility] [place] [address] CARDIAC CATHETERIZATION Social History Tobacco Use Types [...] Ethel Akins Patient Age: 71 y.o. Language: French Race: White Ethnicity: Not nor Admit date: [...] Diana MD - attending LIN Haddad PA-C [facility] Pager [phone] Discharge Diagnoses (Hospital Problems) and Secondary Diagnoses (Chronic Problems): Active Hospital Problems Diagnosis ??? Atrial fibrillation Resolved Hospital Problems No resolved problems to display. Active Non-Hospital Problems Diagnosis ??? Aortic stenosis, mild ??? Mitral regurgitation Moderate ??? Pacemaker 01/31/2022 Successful implantation of a dual chamber Medtronic pacemaker Medtronic Clarksdale XT DR MRI Model ??? Tachy-sakina syndrome [...] Vitamin D deficiency ??? 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 CAH [...] AF Hx of Cardioversion:?No Anti-Arrhythmics:?No Sleep Apnea:?No [id number] ( HTN 1, Age??1,?? DM 1, Stroke [...] 27mm implant ACCESS: Right femoral vein, 14 Namibian, ultrasound guided access, perclose for hemostasis ?? [...] Tbec Updated Allergies/ADRs: Allergies Allergen Reactions ??? [place] Immunizations Given this Hospitalization: None Discharge Medications: [...] appointments: During 8am-5pm Thursday through Thursday call [phone] and ask to speak to the cardiology clinic triage nurse. All other times call [phone] and ask to speak to the hydrographic engineer propulsion machinery service engineer. Return to work: One week Driving: No [...] questions or concerns. Harjeet Aburto Interventional Cardiology [facility] [place] [facility] Pager [phone] (M-F 7am-5pm call [phone] cracker and cookie machine operator) General Instructions Listed Below (repeat from [...] PCP 2-3 weeks post procedure and general ingot supervisor in the 1-3 months postprocedure. 4. For the first 6 months of the device, try to avoid unnecessary procedures. For only dental procedures in first 6 months if they must be done: take a prescribed antibiotic before dental procedures (typically amoxicillin 2 g by mouth or clindamycin 600 mg by mouth one time one hour before procedure). Your PCP or our cardiac nurse ([phone]) can prepare a prescription is needed. If there are questions, please contact Dr. Diana at [phone]. If there are emergency questions related to the device, call the hydrographic engineer propulsion machinery service engineer at [phone]. Smoking cessation: If you are currently a [...] your PCP in 1-2 weeks, and your Licensed Life And Health Agent in 4-6 weeks. Please contact each office to make or confirm your appointments! Harjeet Aburto Interventional Cardiology [facility] Pager: [phone] MCKINLEY Calzada Interventional Cardiology 05/09/22 8:34 AM [facility] Pager: [phone] documented in this encounter Discharge Instructions * [...] appointments: During 8am-5pm Thursday through Thursday call [phone] and ask to speak to the cardiology clinic triage nurse. All other times call [phone] and ask to speak to the hydrographic engineer propulsion machinery service engineer. Return to work: One week Driving: No driving for 24 hours after catherization Diet: low fat / low cholesterol Follow up Appointments: ingot supervisor Dr Diana in 45 days for repeat [...] is not improving, please call us at [phone]. Please caution and limit physical activity or exercise for the next 3 days, perform only light duty, do not lift anything heavier than a gallon of milk. Please follow up with your cardiology in 45 days (6 weeks). Follow up with your PCP in 2-4 weeks after procedure. If there are questions, please contact Yessica Johnson PA-C nurse, Karthik Padilla, at [phone] #3 and he will reach out to her as needed. If there are emergency questions at night or over the weekend, call the hydrographic engineer propulsion machinery service engineer at [phone]. * Attachments The following attachments cannot be sent through Care Everywhere. * Left Atrial Appendage Closure: Percutaneous: Post-op (French) documented in this encounter Medications at Time [...] in the dark (lengthy drive up to [place], [place]). Due to patient and family preference, [...] of a dual chamber Medtronic pacemaker Medtronic Clarksdale XT DR MRI Model ??? Tachy-sakina syndrome [...] Vitamin D deficiency ??? 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 CAH [...] of Atrial Fibrillation with inability to tolerate halfway OAC due to prior hemorrhagic conversion of [...] MCKINLEY Boyle Interventional Cardiology 05/08/22 1:26 PM [facility] Pager: [phone] * Yessica Johnson PA - 05/08/2022 11:05 AM EDT Patient Name: Ethel Akins Patient Age: 71 y.o. Birthdate: 1950 Admit date: 05/08/2022 Attending Physician: Madhu Diana MD [facility] Interventional Cardiology Structural [...] MCKINLEY Boyle Interventional Cardiology 05/08/22 11:05 AM [facility] Pager: [phone] documented in this encounter Miscellaneous Notes * Plan of Care - Rhoda Velasquez RN - 05/09/2022 11:58 AM EDT Patient AVS reviewed. Questions answered. Patient discharged to [facility]. Problem: Adult Inpatient Plan of Care Goal: [...] today. PLAN MOVING FORWARD: pain management monitor manager monitoring I/Os discharge planning as appropriate INDIVIDUALIZED FALL [...] Operative Note Patient Name: Ethel Akins : [id number] MR#: [id number] Case Date: 05/08/2022 Surgeon: Surgeon(s) and Role: Panel 1: * Madhu Diana MD - Primary * Yessica Johnson PA - Physician Critical Care Cns Panel 2: * Damien Ellis MD - [...] 1:40 PM EDT Office Visit Cardiology at [address] [address] Jay Urban MD [facility] [place] [address] 04/15/2024 10:00 AM EDT Hospital Encounter Non-[place] [address] Arrived documented as of this encounter Goals Goal Patient Goal Type Associated Problems Recent Progress Patient-Stated? Author [facility] Medication Compliance and Understanding Patient Facing Action [...] 3:30 PM EDT) Neutrophil % 73.2 % [facility] Neutrophil Absolute 5.92 1.70 - 6.10 x10(3)/[facility] LABORATORY Lymph % 16.1 % [facility] Lymphocytes Abs 1.3 0.9 - 3.2 x10(3)/[facility] LABOR[facility]ORY Monocyte % 6.6 % [facility] Monocyte Abs 0.5 0.3 - 0.9 x10(3)/[facility] LABORATORY Eos % 3.1 % [facility] Eosinophils Abs 0.2 0.0 - 0.4 x10(3)/[facility] LABOR[facility]ORY Basophil % 0.6 % [facility] Baso Absolute 0.0 0.0 - 0.1 x10(3)/[facility] LABORATORY Immature Gran % 0.40 % [facility] Comment: Immature granulocytes(IG's)percentage and absolute count will include metamyelocytes, myelocytes, and promyelocytes. Blood smears from CBCs yielding IG's will be scanned manually for concordance. If this scan disagrees with the automated IG or if promyelocytes are noted, a manual differential will be performed. Immature Gran Absolute 0.03 0.00 - 0.04 x10(3)/[facility] LABORATORY Blood 05/08/2022 3:30 PM EDT 05/08/2022 3:41 PM EDT Narrative Resulting Agency Comment Spec In Lab Madhu Diana MD HEMATOLOGY ORDERABLE S [facility] [place] [address] * (ABNORMAL) Hemogram (05/08/2022 3:30 PM EDT) White Blood Cell 8.1 4.0 - 9.5 x10(3)/ L [facility] Red Blood Cell 4.31(L) 4.58 - 5.54 x10(6)/mc L [facility] Hemoglobin 13.2(L) 13.7 - 16.5 g/dL [facility] Hematocrit 38.4(L) 40.5 - 48.5 % [facility] Mean Cell Volume 89.1 82.9 - 93.1 fL [facility] Mean Cell Hemoglobin 30.6 27.5 - 32.1 pg [facility] Mean Cell Hemoglobin Concentration 34.4 32.0 - 35.7 g/dL [facility] Platelet 241 145 - 357 x10(3)/[facility] LABORATORY RDW Standard Deviation 42.4 36.0 - 45.0 [facility]ORY RDW coefficient of variation 13.0 11.4 - 13.8 % [facility] Mean Platelet Volume 9.4 7.6 - 12.9 fL [facility] NRBC% auto 0.0 % [facility] NRBC Absolute 0.000 0.000 - 0.000 x10(3)/[facility] LABORATORY Blood 05/08/2022 3:30 PM EDT 05/08/2022 3:41 PM EDT Narrative Resulting Agency Comment Spec In Lab Madhu Diana MD HEMATOLOGY ORDERABLE S [facility] [place] [address] * ECHO LMTD W/O CONTRAST W LMTD SPEC DOPP COLOR DOPP (05/08/2022 3:02 PM EDT) Anatomical Region Laterality Modality Cardiac Other 05/08/2022 2:28 PM EDT Narrative 05/08/2022 3:56 PM EDT ? Echocardiogram Report Name: ETHEL AKINS ? Study Date: 05/08/2022 02:28 PM ?BP: 107/63 mmHg ?Patient Location: [address] : 1950 ?Height: 180 cm ? Account: [id number] Age: 71 yrs ?Weight: 101 kg Gender: [...] report for additional findings. Procedure Limited - 30625. limited spectral 48431. Color Doppler - 79673. Satisfactory quality. Irregular rhythm. Left Ventricle Left ventricular systolic function is mildly reduced. Left ventricular ejection fraction is estimated visually at 45%. Left Atrium Rete-kr-mtpwr flow is present. There is a single [...] 05/08/2022 02:28 PM BP: 107/63mmHg Patient Location: [address] : 1950 Height: 180 cm Account:[id number] Age: 71 yrs Weight: 101 kg Gender: [...] report for additional findings. Procedure Limited - 54245. limited spectral 95079. Color Doppler - 89453.Satisfactory quality. Irregular rhythm. Left Ventricle Left ventricular systolic function is mildly reduced. Left ventricularejection fraction is estimated visually at 45%. Left Atrium Abra-vl-mgflw flow is present. There is a single [...] (Bezet) 464 ms MUSE SYSTEM Calculated R Phillips -57 degrees MUSE SYSTEM Calculated T Phillips -60 degrees MUSE SYSTEM INTERPRETATION Atrial fibrillation [...] ? Cardiac Catheterization/Intervention Report ? Patient Name: Keniamarialuisalo, Ethel P. ? Procedure Date: 05/08/2022 ? A #: [id number] ? Primary Physician: Madhu Diana ? Case #: [id number] ? File Name: [id number] ? Catheterization Order Number: [id number] ? [facility] ? Final Report [place], [place] ? Patient Name: ? Ethel Gomez. Tubiello ? ID#: ?[id number] ? : ?1950 ? Procedure Date: ? May 08, 2022 ? Case #: ? [id number] ? Room: ? 6 ? Case Physicians: [...] was designated as ASA Class ?III. The [facility] clinical frailty scale is 6: [...] procedure was Elective. The indication for ?the cath lab manager visit is other indication. Chest pain symptom [...] for atrial fibrillation. ?The patient had a [id number] score of 6, a HAS-BLED score of [...] ?Watchman FLX Closure Device 27 mm (s/l/n [id number]) was prepared and ?deployed using standard technique. [...] to nor was it given in the ?cath lab manager. ?Recommended anti-platelet/anti-thrombotic regimen: ?Continue apixaban 2.5 mg twice daily for 45 days then stop. ?These recommendations are made at the time of the intervention. Patient ?and provider preferences or a changing clinical situation may require ?modification of this regimen. Consult [facility] Interventional Cardiology for ?questions. ? Conclusions: ?* [...] the transesophageal echo during cath. ? Madhu Diana M.D. ? Electronically Signed by: Madhu Diana M.D. ? Report Finalized: 05/08/2022 ??15:33 ? Madhu Diana MD CARDIAC CATH ORDERAB LES * DAVEY FOR GUIDANCE (05/08/2022 12:58 PM EDT) EF 45 HEARTLAB SYSTEM Anatomical Region Laterality Modality Cardiac Other 05/08/2022 11:5 8 AM EDT Narrative 05/08/2022 3:12 PM EDT ? Transesophageal Echocardiogram Report Name: JOSIAS AKINSDIANNA Gomez ?Study Date: 05/08/2022 11:58 AM ? Patient Location: [place]06 A : 1950 ? Height: 180 cm ? Account: [id number] Age: 71 yrs ? Weight: 101 kg Gender: Male ?BSA: 2.2 m2 Ordering Physician: GENA CHERRY Referring Physician: MADUH DIANA Performed By: Damien Ellis MD Reason For Study: Atrial Fibrillation Exam Location: [facility]. Interpretation Summary DAVEY performed to guide BATOOL closure in catheterization laboratory. Baseline: No BATOOL thrombus. Max os diameter of ~22 mm. Small pericardial effusion. Post: 27 mm Watchman FLX device well-seated within BATOOL. No mary-device leak. No change in pericardial effusion. Whqs-oj-ioaou flow across atrial septostomy. See report for [...] Echocardiogram Report Name: ETHEL AKINS Study Date: 1:58 AM Patient Location: [address] : 1950 Height: 180 cm Account: [id number] Age: 71 yrs Weight: 101 kg Gender: Male BSA: 2.2 m2 Ordering Physician: GENA CHERRY Referring Physician: MADHU DIANA Performed By: Damien Ellis MD Reason For Study: Atrial Fibrillation Exam Location: [facility]. Interpretation Summary DAVEY performed to guide BATOOL closure in catheterization laboratory. Baseline: No BATOOL thrombus. Max os diameter of ~22 mm. Small pericardialeffusion. Post: 27 mm Watchman FLX device well-seated within BATOOL. No mary-deviceleak. No change in pericardial effusion. Zvvt-zf-wpeqx flow across atrialseptostomy. See report for additional [...] Glucose, POC 142 65 - 199 mg/dL [facility] Comment: Supplemental ranges: <140 mg/dL before meals <180 mg/dL all other times of the day Blood 05/08/2022 12:3 2 PM EDT 05/08/2022 12:32 PM EDT Madhu Diana MD POINT OF CARE TEST O TED Performing Organization Address City/[facility] Co de Phone Number [facility] [place] [address] * POCT Glucose (05/08/2022 9:39 AM EDT) Glucose, POC 134 65 - 199 mg/dL [facility] Comment: Supplemental ranges: <140 mg/dL before meals <180 mg/dL all other times of the day Blood 05/08/2022 9:39 AM EDT 05/08/2022 9:39 AM EDT Madhu Diana MD POINT OF CARE TEST O TED Performing Organization Address [facility] Co de Phone Number [facility] [place] [address] * Type and Screen Validity (05/08/2022 8:54 AM EDT) T&S only valid at [facility] LABORATORY Comment:This Type and Screen result is only valid at the [facility] Hospital Blood 05/08/2022 8:54 AM EDT 05/08/2022 8:55 AM EDT Narrative Resulting Agency Comment Spec In Lab Harjeet SEN BLOOD BANK LAB ORDER IGNACIO Performing Organization Address [facility] Co de Phone Number [facility] [place] [address] * ABORH Recheck Status (05/08/2022 8:54 AM EDT) ABORH Type Recheck Completed [facility] Blood 05/08/2022 8:54 AM EDT 05/08/2022 8:55 AM EDT Narrative Resulting Agency Comment Spec In Lab Harjeet SEN BLOOD BANK LAB ORDER IGNACIO Performing Organization Address City/[facility]/ZIP Co de Phone Number [facility] [place] [address] * Antibody screen (05/08/2022 8:54 AM EDT) Ab Screen Interp Negative [facility] Expires at 2359 on: 05/11/2022 [facility] Blood 05/08/2022 8:54 AM EDT 05/08/2022 8:55 AM EDT Narrative Resulting Agency Comment Spec In Lab Harjeet SEN BLOOD BANK LAB ORDER IGNACIO [facility] [place] [address] * ABO/Rh Typing (05/08/2022 8:54 AM EDT) ABORH Type AB Pos [facility] Blood 05/08/2022 8:54 AM EDT 05/08/2022 8:55 AM EDT Narrative Resulting Agency Comment Spec In Lab Harjeet SEN BLOOD BANK LAB ORDER IGNACIO [facility] [place] [address] * Differential, Automated (05/08/2022 8:54 AM EDT) Neutrophil % 69.6 % [facility] Neutrophil Absolute 5.76 1.70 - 6.10 x10(3)/[facility] LABORATORY Lymph % 18.1 % [facility] Lymphocytes Abs 1.5 0.9 - 3.2 x10(3)/[facility] LABORATORY Monocyte % 7.1 % [facility] Monocyte Abs 0.6 0.3 - 0.9 x10(3)/[facility] LABORATORY Eos % 3.7 % [facility] Eosinophils Abs 0.3 0.0 - 0.4 x10(3)/[facility] LABORATORY Basophil % 1.1 % [facility] Baso Absolute 0.1 0.0 - 0.1 x10(3)/[facility] LABORATORY Immature Gran % 0.40 % [facility] Comment: Immature granulocytes(IG's)percentage and absolute count will include metamyelocytes, myelocytes, and promyelocytes. Blood smears from CBCs yielding IG's will be scanned manually for concordance. If this scan disagrees with the automated IG or if promyelocytes are noted, a manual differential will be performed. Immature Gran Absolute 0.03 0.00 - 0.04 x10(3)/[facility] LABORATORY Blood 05/08/2022 8:54 AM EDT 05/08/2022 9:05 AM EDT Narrative Resulting Agency Comment Spec In Lab Madhu Diana MD HEMATOLOGY ORDERABLE S Performing Organization Address City/State/[facility] Co de Phone Number [facility] [place] [address] * Hemogram (05/08/2022 8:54 AM EDT) White Blood Cell 8.3 4.0 - 9.5 x10(3)/[facility] LABORATORY Red Blood Cell 4.83 4.58 - 5.54 x10(6)/[facility]ORATORY Hemoglobin 14.5 13.7 - 16.5 g/dL [facility] Hematocrit 42.1 40.5 - 48.5 % [facility] Mean Cell Volume 87.2 82.9 - 93.1 fL [facility] Mean Cell Hemoglobin 30.0 27.5 - 32.1 pg [facility] Mean Cell Hemoglobin Concentration 34.4 32.0 - 35.7 g/dL [facility] Platelet 273 145 - 357 x10(3)/[facility] LABORATORY RDW Standard Deviation 40.7 36.0 - 45.0 fL [facility] RDW coefficient of variation 12.9 11.4 - 13.8 % [facility] Mean Platelet Volume 9.1 7.6 - 12.9 fL [facility] NRBC% auto 0.0 % [facility] NRBC Absolute 0.000 0.000 - 0.000 x10(3)/mcL [facility] Blood 05/08/2022 8:54 AM EDT 05/08/2022 9:05 AM EDT Narrative Resulting Agency Comment Spec In Lab Madhu Diana MD HEMATOLOGY ORDERABLE S [facility] [place] [address] * (ABNORMAL) BMP w/fasting Glucose (05/08/2022 8:54 AM EDT) Glucose Fasting 168(H) 65 - 99 mg/dL [facility] Comment: ?Fasting* Glucose [...] of Diabetes Mellitus, Position Statement from the [place] Diabetes Association. ??Diabetes Care, Volume 33, Supplement 1, Jul 2009 Blood Urea Nitrogen 18 10 - 20 mg/dL [facility] Creatinine 1.44 0.80 - 1.50 mg/dL [facility] Sodium 142 135 - 145 mmol/L [facility] [...] questions. Chloride 103 98 - 107 mmol/L [facility] Carbon Dioxide 30 22 - 31 mmol/L [facility] Anion Gap 9 5 - 15 mmol/L [facility] Calcium 9.8 8.5 - 10.5 mg/dL [facility] Est Glomerular Filtration Rate 51(L) >=60 mL/min/1. 73 m?? [facility] Comment: This patient's [...] In Lab Madhu Diana MD CHEMISTRY ORDERABLES [facility] [place] [address] documented in this encounter Visit Diagnoses Diagnosis [...] EVERY EVENING, First dose on Thu05/08/22 at 2044, Until [...] Starting on Laura 05/08/22 at 1947, Until 05/09/22 at 1405, Pain, Moderate to severe pain (6-10 out of 10), Hold for respiratory rate less than 10 per minute. Maximum dose 200 mcg over one hour, including OR administration. If ordered with HYDROmorphone or morphine, give HYDROmorphone or morphine first and use fentaNYL for breakthrough pain., PACU Recovery, Routine documented in this encounter Care Teams Regional Economic Liaison Relationship Specialty Start Date End Date Urbano Jimenez DO [facility] [place] [address] [place] [address] PCP - General Family Medicine 03/18/22 Ruchi Valles RN Nurse Clinic Transplant Surgery 07/30/15 documented as of this encounter
--- OUTSIDE RECORDS SUMMARY | 2024-04-04 13:54 | XMS_ITS | Encounter Summary ---
Author Organization [facility] [place] [address] Care Team Providers Care Collar Turner Operator Name Role Phone Urbano Jimenez Ray KIRBY Primary Care Provider [phone] Encounter Details Date Type Department Care Team (Late st Contact Info) Description 04/17/2022 Notes Only Cardiology at [address] [address] Nazia Coleman RN Social History Tobacco Use [...] they exhibit understanding. Plan: BATOOL Sanchez May 08 documented in this encounter Plan of Treatment Upcoming Encounters Date Type Department Care Team (Late st Contact Info) Description 04/08/2024 1:40 PM EDT Office Visit Cardiology at [address] [address] Jay Urban MD [facility] [place] [address] 04/15/2024 10:00 AM EDT Hospital Encounter Non-[place] [phone] Arrived documented as of this encounter Goals Goal Patient Goal Type Associated Problems Recent Progress Patient-Stated? Author [facility] Medication Compliance and Understanding Patient Facing Action Plan On track( 017 10:41 AM EDT) Selena Scott, [facility] Note: Patient Goal: Clear hepatitis C Timeframe to meet goal: within 12 weeks of therapy documented as of this encounter Visit Diagnoses Not on filedocumented in this encounter Care Teams Collar Turner Operator Relationship Specialty Start Date End Date Urbano Jimenez DO [address] [place] [address] PCP - General Family Medicine 03/18/22 Ruchi Valles RN Nurse Clinic Transplant Surgery 07/30/15 documented as of this encounter
--- OUTSIDE RECORDS SUMMARY | 2024-04-04 13:54 | XMS_ITS | Encounter Summary ---
Author Organization [facility]ly [facility] [place] [address] Care Team Providers Care Independent Contractor Name Role Phone Urbano Jimenez Ray KIRBY Primary Care Provider [phone] Reason for Visit * Reason Onset Date Comments Medication Refill 04/28/2022 Encounter Details Date Type Department Care Team (Late st Contact Info) Description 04/28/2022 Refill [place] [phone] Marisela Metcalf RN Other complication of kidney [...] PM EDT Office Visit Cardiology at [address] [phone] Jay Urban MD [facility] [place] [address] 04/15/2024 10:00 AM EDT Hospital Encounter Non-[place] [address] Arrived documented as of this encounter Goals [...] immunotherapy documented in this encounter Care Teams Independent Contractor Relationship Specialty Start Date End Date Urbano Jimenez DO [facility] [place] [address] PCP - General Family Medicine 03/18/22 Ruchi Valles RN Nurse Clinic Transplant Surgery 07/30/15 documented as of this encounter
--- OUTSIDE RECORDS SUMMARY | 2024-04-04 13:54 | XMS_ITS | Encounter Summary ---
Author Organization [facility] [place] [address] Care Team Providers Care Ice Cream Freezer Helper Name Role Phone Urbano Jimenez Ray KIRBY Primary Care Provider [phone] Reason for Visit * Reason Onset Date Comments Medication Refill 04/15/2022 Encounter Details Date Type Department Care Team (Late st Contact Info) Description 04/15/2022 Refill [place] [phone] Tal Eagle MD [facility] [place] [address] Social History Tobacco Use Types Packs/Day Years [...] PM EDT Office Visit Cardiology at [address] [phone] Jay Urban MD [facility] [place] [address] 04/15/2024 10:00 AM EDT Hospital Encounter Non-Invasive [...] on filedocumented in this encounter Care Teams Ice Cream Freezer Helper Relationship Specialty Start Date End Date Urbano Jimenez DO [address] [place] [address] PCP - General Family Medicine 03/18/22 Ruchi Valles RN Nurse Clinic Transplant Surgery 07/30/15 documented as of this encounter
--- OUTSIDE RECORDS SUMMARY | 2024-04-04 13:54 | XMS_ITS | Encounter Summary ---
Author Organization [facility] [place] [address] Care Team Providers Care Duck Operator Name Role Phone Urbano Jimenez DO Primary Care Provider [phone] Reason for Visit * Auth/Cert Specialty Diagnoses / Procedures Referred By Contac t Referred To Contact Diagnoses Persistent atrial fibrillation [I48.19] Watchman Procedures PRO PERQ CLSR TCAT L ATR APNDGE W/ENDOCARDIAL IMPLNT CARDIAC CATHETERIZATION @PERQ TRANSCATH CLOSURE LEFT ATRIAL APPENDAGE W ENDOCARDIAL IMPLANT, INC RAD S&I (WRVU 14) TRANSESOPHAGEAL ECHO DURING CATH/EP PROCEDURE Tal Diana MD [facility] [place] [address] [facility] Referral ID Status Reason Start Date Expiration Date Visits Re quested Visits Authorized [id number] 1 1 Encounter Details Date Type Department Care Team (Late st Contact Info) Description 05/08/2022 11:40 AM EDT Anesthesia Event [employer] [place] [address] Aldo Montes MD [facility] [place] [address] Bladimir Zee CRNA [facility] [place] [address] Anesthesia Record Procedure Summary Procedure Name Responsible [...] 0934; median cubital vein (antecubital fossa), right; fxdz-ajl-oaumpu catheter system; Anatomical Landmarks; 20 gauge; Jeffy [...] CRNA LDA Cath/EP Sheath 05/08/22; 1222; 14 Turkmen (Fr); Right; Femoral; Venous 05/08/22 1222 by [...] Procedure Summary Date: 05/08/22 Room / Location: [facility] [address] [place] [address] CATH LABS Anesthesia Start: 1140 Anesthesia Stop: [...] All Anesthesia Providers: Anesthesiologist: Aldo Montes MD TIMEKEEPER: Bladimir Zee CRNA Vitals Value Taken Time BP 120/90 05/08/22 1525 Temp Pulse 61 05/08/22 1528 Resp 16 05/08/22 1528 SpO2 97 % 05/08/22 1528 Pain Level 0 05/08/22 1515 Vitals shown include unvalidated device data. Patient Location: PACU/[facility] Level of Consciousness: Conscious but Sleepy Pain [...] deficiency 09/20/2017 ??? Prophylactic immunotherapy 09/22/2016 ??? nursing home current use of immunosuppressive drug 09/22/2016 [...] PRG FLUOROSCOPY EXAM UP TO 1 HR [facility] OR [facility] CARE PROV N/A 05/10/2020 FLUOROSCOPY (WRVU 0.17) performed by Joseph Ang MD at [facility] MAIN OR ??? PRO ANASTOMOSIS, AV, ANY SITE Left 05/09/2015 AV FISTULA CREATION, DIRECT HEMODIALYSIS, ANY SITE, EG ASHWINI FISTULA UPPER EXTREMITY performed by Que Amaro MD at [facility] MAIN OR ??? PRO CYSTOURETHROSCOPY, URETER CATHETER Left 06/17/2018 CYSTO, RETROGRADE, URETEROPYELOGRAPHY (WRVU 2.37) performed by Edinson Grider III, MD at [facility] ??? PRO LAMINEC/FACETECT/FORAMIN, LUMBAR 1 SEG N/A 05/10/2020 LAMINECTOMY, FACETECTOMY & FORAMINOTOMY,LUMBAR, ONE LEVEL (WRVU 15.37) performed by Joseph Ang MD at [facility] MAIN OR ??? PRO LAMINOTOMY, LUMBAR DISK, 1 INTRSP N/A 05/10/2020 LAMINOTOMY, DECOMPRESSION, FORAMINOTOMY, LUMBAR (WRVU 13.18) performed by Joseph Ang MD at [facility] OR ??? PRO MICROSURG TECHNIQUES, REQ OPER MICROSCOPE N/A 05/10/2020 MICROSCOPE USE (WRVU 3.46) performed by Joseph Ang MD at [facility] OR ??? PRO REIMPLANT URETER, SINGLE URETER Left 05/20/2016 @URETERONEOCYSTOSTOMY ANASTOMOSIS OF SINGLE URETER TO BLADDER performed by Santosh Arredondo MD at [facility] OR ??? PRO REIMPLANT URETER, SINGLE URETER N/A 05/20/2016 @URETERONEOCYSTOSTOMY ANASTOMOSIS OF SINGLE URETER TO BLADDER performed by Que Amaro MD at [facility] OR ??? PRO TOTAL KNEE ARTHROPLASTY Right 11/25/2017 TOTAL KNEE ARTHROPLASTY (WRVU 20.72) performed by Breezy Dale MD at [facility] OR ??? PRO TRANSPLANT, PREP CADAVER RENAL GRAFT N/A 09/16/2015 @PREPARATION CADAVERIC RENAL ALLOGRAFT performed by Franko Larkin MD at [facility] OR ??? PRO TRANSPLANTATION OF KIDNEY N/A 09/16/2015 @KIDNEY TRANSPLANT, WITHOUT RECIPIENT NEPHRECTOMY performed by Franko Larkin MD at [facility] OR ??? TISSUE TRANSFER kidney ??? US RENAL TRANSPLANT LEFT Left 01/31/2019 US Renal Transplant Left 01/31/2019 [facility] RAD ULTRASOUND ??? US RENAL TRANSPLANT LEFT Left 02/07/2019 US Renal Transplant Left 02/07/2019 [facility] RAD ULTRASOUND Social History Tobacco Use [...] ??? Types: Marijuana Allergies Allergen Reactions ??? Roosevelt Medications: MAR and/or home medications have been [...] moderate mitral regurgitation. Activity status: ADR: -- Roosevelt Recent Labs: Lab Results Component Value Date [...] risks discussed with patient. Plan discussed with TIMEKEEPER. Anesthesia Screening documented in this encounter Plan of Treatment Upcoming Encounters Date Type Department Care Team (Late st Contact Info) Description 04/08/2024 1:40 PM EDT Office Visit Cardiology at [address] [address] Jay Urban MD [facility] [place] [address] 04/15/2024 10:00 AM EDT Hospital Encounter Non-Invasive [place] [phone] Arrived documented as of this encounter Goals Goal Patient Goal Type Associated Problems Recent Progress Patient-Stated? Author [facility] Medication Compliance and Understanding Patient [...] mg documented in this encounter Care Teams Duck Operator Relationship Specialty Start Date End Date Urbano Jimenez DO [address] [place] [address] PCP - General Family Medicine 03/18/22 Ruchi Valles RN Nurse Clinic Transplant Surgery 07/30/15 documented as of this encounter
--- OUTSIDE RECORDS SUMMARY | 2024-04-04 13:54 | XMS_ITS | Encounter Summary ---
Author Organization [facility] [place] [address] Care Team Providers Care Sound Effects Person Name Role Phone Urbano Jimenez Ray KIRBY Primary Care Provider [phone] Encounter Details Date Type Department Care Team (Late st Contact Info) Description 05/08/2022 Orders Only [employer] [phone] Yessica Johnson PA [facility] [place] [address] Atrial fibrillation with RVR Social History Tobacco [...] 1:40 PM EDT Office Visit Cardiology at [address] [phone] Jay Urban MD [facility] [place] [address] 04/15/2024 10:00 AM EDT Hospital Encounter Non-Invasive [place] [address] Arrived documented as of this encounter Goals [...] fibrillation documented in this encounter Care Teams Sound Effects Person Relationship Specialty Start Date End Date Urbano Jimenez DO [address] [place], [place] [address] [place] [address] PCP - General Family Medicine 03/18/22 Ruchi Valles RN Nurse Clinic Transplant Surgery 07/30/15 documented as of this encounter
--- OUTSIDE RECORDS SUMMARY | 2024-04-04 13:54 | XMS_ITS | Encounter Summary ---
Author Organization [facility] Address [facility] [place] [address] Care Team Providers Care Health Insurance Specialist Name Role Phone Urbano Jimenez DO Primary Care Provider [phone] Encounter Details Date Type Department Care Team (Late st Contact Info) Description 06/02/2022 10:30 AM EST Office Visit Cardiology at [address] [address] Byron Brown MD [facility] [place] [address] Atrial fibrillation, unspecified type; Fatigue, unspecified type [...] original note were not included. [facility] [place] [address] CARDIOLOGY/ VASCULAR OUTPATIENT NOTE Cody Bolden Urbano [...] DCCV with an ECG Byron Brown MD, [facility] Cardiovascular Medicine [facility] [address] Clinic [phone] Clinic Team Nurse: [phone] The total time associated with this visit was 30 minutes. documented in this encounter Plan of Treatment Upcoming Encounters Date Type Department Care Team (Late st Contact Info) Description 04/08/2024 1:40 PM EDT Office Visit Cardiology at [place] [phone] Jay Urban MD [facility] [place] [address] 04/15/2024 10:00 AM EDT Hospital Encounter Non-Invasive Cardiology Lab [place] [phone] Arrived documented as of this encounter Goals [...] type documented in this encounter Care Teams Health Insurance Specialist Relationship Specialty Start Date End Date Urbano Jimenez DO [address] [place] [address] PCP - General Family Medicine 03/18/22 Ruchi Valles RN Nurse Clinic Transplant Surgery 07/30/15 documented as of this encounter
--- OUTSIDE RECORDS SUMMARY | 2024-04-04 13:54 | XMS_ITS | Encounter Summary ---
[place] [address] Care Team Providers Care Director Name Role Phone Urbano Jimenez DO Primary Care Provider [phone] Reason for Referral * Diagnostic Test (Routine) - Closed Specialty Diagnoses / Procedures Referred By Humberto flor Referred To Contact Cardiology Diagnoses Persistent atrial fibrillation Procedures Transesophageal Echocardiogram (DAVEY) Madhu Diana MD [facility] [place] [address] [facility] [place] [address] Referral ID Status Reason Start Date Expiration Date V isits Requested Visits Authorized [id number] Closed Specialty Service Requested 04/17/2022 07/15/2022 1 [...] ECHO DURING CATH/EP PROCEDURE Madhu Diana MD [facility] [place] [address] [facility] Referral ID Status Reason Start Date Expiration Date Visits Re quested Visits Authorized [id number] 1 1 Encounter Details Date Type Department Care Team (Latest Contact Info) Description 05/08/2022 8:29 AM EDT - 05/09/2022 12:00 PM EDT Hospital Encounter Intermediate Cardiac Care Unit [facility] [place] [address] Madhu Diana MD [facility] [place] [address] Persistent atrial fibrillation Discharge Disposition: Home Social [...] Ethel Akins Patient Age: 71 y.o. Language: Ukrainian Race: White Ethnicity: Not nor Admit date: [...] Diana MD - attending LIN Haddad PA-C [facility] Pager [phone] Discharge Diagnoses (Hospital Problems) and Secondary Diagnoses [...] AF Hx of Cardioversion:?No Anti-Arrhythmics:?No Sleep Apnea:?No [id number] ( HTN 1, Age??1,?? DM 1, Stroke [...] 27mm implant ACCESS: Right femoral vein, 14 Setswana, ultrasound guided access, perclose for hemostasis ?? [...] 0 STOPPED Medications aspirin EC 81 mg [facility] Updated Allergies/ADRs: Allergies Allergen Reactions ??? [place] Immunizations Given this Hospitalization: None Discharge Medications: [...] appointments: During 8am-5pm Thursday through Thursday call [phone] and ask to speak to the cardiology clinic triage nurse. All other times call [phone] and ask to speak to the hand bunch maker business communications instructor. Return to work: One week Driving: No [...] questions or concerns. Harjeet Aburto Interventional Cardiology [facility] Pager [phone] (M-F 7am-5pm call [phone] cutter operator brick) General Instructions Listed Below (repeat from above) [...] PCP 2-3 weeks post procedure and general accountant in the 1-3 months postprocedure. 4. For the first 6 months of the device, try to avoid unnecessary procedures. For only dental procedures in first 6 months if they must be done: take a prescribed antibiotic before dental procedures (typically amoxicillin 2 g by mouth or clindamycin 600 mg by mouth one time one hour before procedure). Your PCP or our cardiac nurse ([phone]) can prepare a prescription is needed. If there are questions, please contact Dr. Diana at [phone]. If there are emergency questions related to the device, call the hand bunch maker business communications instructor at [phone]. Smoking cessation: If you are currently a [...] your PCP in 1-2 weeks, and your Attendance Clerk in 4-6 weeks. Please contact each office to make or confirm your appointments! Harjeet Aburto Interventional Cardiology [facility] Pager: [phone] MKCINLEY Calzada Interventional Cardiology 05/09/22 8:34 AM [facility] Pager: [phone] documented in this encounter Discharge Instructions * [...] appointments: During 8am-5pm Thursday through Thursday call [phone] and ask to speak to the cardiology clinic triage nurse. All other times call [phone] and ask to speak to the hand bunch maker business communications instructor. Return to work: One week Driving: No driving for 24 hours after catherization Diet: low fat / low cholesterol Follow up Appointments: accountant Dr Diana in 45 days for repeat [...] is not improving, please call us at [phone]. Please caution and limit physical activity or exercise for the next 3 days, perform only light duty, do not lift anything heavier than a gallon of milk. Please follow up with your cardiology in 45 days (6 weeks). Follow up with your PCP in 2-4 weeks after procedure. If there are questions, please contact Yessica Johnson PA-C nurse, Karthik Padilla, at [phone] #[phone] and he will reach out to her as needed. If there are emergency questions at night or over the weekend, call the hand bunch maker business communications instructor at [phone]. * Attachments The following attachments cannot be sent through Care Everywhere. * Left Atrial Appendage Closure: Percutaneous: Post-op (Ukrainian) documented in this encounter Medications at Time [...] the dark (lengthy drive up to [place], [place]). Due to patient and family preference, patient [...] pacemaker Med[employer]onic Geneva XT DR MRI Model ??? Tachy-sakina syndrome [...] of Atrial Fibrillation with inability to tolerate terminal system operator OAC due to prior hemorrhagic conversion of [...] MCKINLEY Boyle Interventional Cardiology 05/08/22 1:26 PM [facility] Pager: [phone] * Yessica Johnson PA - 05/08/2022 11:05 AM EDT Patient Name: Ethel Akins Patient Age: 71 y.o. Birthdate: 1950 Admit date: 05/08/2022 Attending Physician: Madhu Diana MD [facility] Interventional Cardiology Structural [...] MCKINLEY Boyle Interventional Cardiology 11/03/22 11:05 AM [facility] Pager: [phone] documented in this encounter Miscellaneous Notes * Plan of Care - Rhoda Velasquez RN - 05/09/2022 11:58 AM EDT Patient AVS reviewed. Questions answered. Patient discharged to [facility]. Problem: Adult Inpatient Plan of [...] today. PLAN MOVING FORWARD: pain management monitor radiation monitor I/Os discharge planning as appropriate INDIVIDUALIZED [...] Operative Note Patient Name: Ethel Akins : [id number] MR#: [id number] Case Date: 05/08/2022 Surgeon: Surgeon(s) and Role: Panel 1: * Madhu Diana MD - Primary * Yessica Johnson PA - Physician Manager [employer] Panel 2: * Damien Ellis MD - [...] 1:40 PM EDT Office Visit Cardiology at [address] [address] Jay Urban MD [facility] [place] [address] 04/15/2024 10:00 AM EDT Hospital Encounter [place] [address] Arrived documented as of this encounter Goals [...] 3:30 PM EDT) Neutrophil % 73.2 % [facility] Neutrophil Absolute 5.92 1.70 - 6.10 x10(3)/[facility] Lymph % 16.1 % [facility] Lymphocytes Abs 1.3 0.9 - 3.2 x10(3)/[facility] LABOR[facility] Monocyte % 6.6 % [facility] Monocyte Abs 0.5 0.3 - 0.9 x10(3)/[facility]OR[facility] Eos % 3.1 % [facility] Eosinophils Abs 0.2 0.0 - 0.4 x10(3)/[facility] LABOR[facility]ORY Basophil % 0.6 % [facility] Baso Absolute 0.0 0.0 - 0.1 x10(3)/[facility] LABORATORY Immature Gran % 0.40 % [facility] Comment: Immature granulocytes(IG's)percentage and absolute count will include metamyelocytes, myelocytes, and promyelocytes. Blood smears from CBCs yielding IG's will be scanned manually for concordance. If this scan disagrees with the automated IG or if promyelocytes are noted, a manual differential will be performed. Immature Gran Absolute 0.03 0.00 - 0.04 x10(3)/mcL [facility] Blood 05/08/2022 3:30 PM EDT 05/08/2022 3:41 PM EDT Narrative Resulting Agency Comment Spec In Lab Madhu Diana MD HEMATOLOGY ORDERABLE S [facility] [place] [address] * (ABNORMAL) Hemogram (05/08/2022 3:30 PM EDT) White Blood Cell 8.1 4.0 - 9.5 x10(3)/mc L [facility] Red Blood Cell 4.31(L) 4.58 - 5.54 x10(6)/mc L [facility] Hemoglobin 13.2(L) 13.7 - 16.5 g/dL [facility] Hematocrit 38.4(L) 40.5 - 48.5 % [facility] Mean Cell Volume 89.1 82.9 - 93.1 fL [facility] Mean Cell Hemoglobin 30.6 27.5 - 32.1 pg [facility] Mean Cell Hemoglobin Concentration 34.4 32.0 - 35.7 g/dL [facility] Platelet 241 145 - 357 x10(3)/mc L [facility] RDW Standard Deviation 42.4 36.0 - 45.0 [facility] RDW coefficient of variation 13.0 11.4 - 13.8 % [facility] Mean Platelet Volume 9.4 7.6 - 12.9 fL [facility] NRBC% auto 0.0 % [facility] NRBC Absolute 0.000 0.000 - 0.000 x10(3)/mc L [facility] Blood 05/08/2022 3:30 PM EDT 05/08/2022 3:41 PM EDT Narrative Resulting Agency Comment Spec In Lab Madhu Diana MD HEMATOLOGY ORDERABLE S [facility] [place] [address] * ECHO LMTD W/O CONTRAST W LMTD SPEC DOPP COLOR DOPP (05/08/2022 3:02 PM EDT) Anatomical Region Laterality Modality Cardiac Other 05/08/2022 2:28 PM EDT Narrative 05/08/2022 3:56 PM EDT ? Echocardiogram Report Name: FUADRAMÓN ETHEL P ? Study Date: 05/08/2022 02:28 PM ?BP: 107/63 mmHg ?Patient Location: [address] : 1950 ?Height: 180 cm ? Account: [id number] Age: 71 yrs ?Weight: 101 kg Gender: Male ? BSA: 2.2 m2 Ordering Physician: MADHU DIANA Referring Physician: SHAQ BROWN Performed By: Halima York MARVIN Reason For Study: S/P Watchman Interpretation Summary Limited post Watchman protocol. There was a small pericardial effusion pre-procedure which is unchanged immediately post procedure (earlier today by DAVEY) and by TTE now. There is no echocardiographic evidence of tamponade. See report for additional findings. Procedure Limited - 06729. limited spectral 82531. Color Doppler - 06535. Satisfactory quality. Irregular rhythm. Left Ventricle Left ventricular systolic function is mildly reduced. Left ventricular ejection fraction is estimated visually at 45%. Left Atrium Nzmq-ie-jpgej flow is present. There is a single [...] 05/08/2022 02:28 PM BP: 107/63mmHg Patient Location: [address] : 1950 Height: 180 cm Account:[id number] Age: 71 yrs Weight: 101 kg Gender: [...] report for additional findings. Procedure Limited - 98830. limited spectral 58827. Color Doppler - 00901.Satisfactory quality. Irregular rhythm. Left Ventricle Left ventricular systolic function is mildly reduced. Left ventricularejection fraction is estimated visually at 45%. Left Atrium Nbni-xg-bguxo flow is present. There is a single [...] (Bezet) 464 ms MUSE SYSTEM Calculated R [place] -57 degrees MUSE SYSTEM Calculated T [place] -60 degrees MUSE SYSTEM INTERPRETATION Atrial fibrillation [...] Modality Other Narrative 05/08/2022 3:37 PM EDT ?[facility] ? Cardiac Catheterization/Intervention Report ? Patient Name: Ethel Akins. ? Procedure Date: 05/08/2022 ? A #: [id number] ? Primary Physician: Lebron, Madhu Schumacher ? Case #: [id number] ? File Name: [id number] ? Catheterization Order Number: [id number] ? [facility] ? Final Report [place], [place] ? Patient Name: ? Ethel P. Tubiello ? ID#: ?[id number] ? : ?1950 ? Procedure Date: ? [...] for atrial fibrillation. ?The patient had a OPG4MT2-MQUq score of 6, a HAS-BLED score of [...] ?Watchman FLX Closure Device 27 mm (s/l/n [id number]) was prepared and ?deployed using standard technique. [...] may require ?modification of this regimen. Consult [facility] Interventional Cardiology for ?questions. ? Conclusions: ?* [...] Date: 05/08/2022 11:58 AM ? Patient Location: [place] [address] A : 1950 ? Height: 180 cm ? Account: [id number] Age: 71 yrs ? Weight: 101 kg Gender: Male ?BSA: 2.2 m2 Ordering Physician: GENA CHERRY Referring Physician: MADHU DIANA Performed By: Damien Ellis MD Reason For Study: Atrial Fibrillation Exam Location: [facility]. Interpretation Summary DAVEY performed to guide BATOOL closure in catheterization laboratory. Baseline: No BATOOL thrombus. Max os diameter of ~22 mm. Small pericardial effusion. Post: 27 mm Watchman FLX device well-seated within BATOOL. No mary-device leak. No change in pericardial effusion. Scfm-jz-iswep flow across atrial septostomy. See report for [...] MD - 05/08/2022 Transesophageal Echocardiogram Report Name: SHAKIRAANARAMÓN ETHEL P Study Date: 1:58 AM Patient Location: [address] : 1950 Height: 180 cm Account: [id number] Age: 71 yrs Weight: 101 kg Gender: Male BSA: 2.2 m2 Ordering Physician: GENA CHERRY Referring Physician: MADHU DIANA Performed By: Damien Ellis MD Reason For Study: Atrial Fibrillation Exam Location: [facility]. Interpretation Summary DAVEY performed to guide BATOOL closure in catheterization laboratory. Baseline: No BATOOL thrombus. Max os diameter of ~22 mm. Small pericardialeffusion. Post: 27 mm Watchman FLX device well-seated within BATOOL. No mary-deviceleak. No change in pericardial effusion. Qiht-qf-ldqyu flow across atrialseptostomy. See report for additional [...] Glucose, POC 142 65 - 199 mg/dL [facility] Comment: Supplemental ranges: <140 mg/dL before meals <180 mg/dL all other times of the day Blood 05/08/2022 12:3 2 PM EDT 05/08/2022 12:32 PM EDT Madhu Diana MD POINT OF CARE TEST Mario JEAN [facility] [place] [address] * POCT Glucose (05/08/2022 9:39 AM EDT) Glucose, POC 134 65 - 199 mg/dL [facility] Comment: Supplemental ranges: <140 mg/dL before meals <180 mg/dL all other times of the day Blood 05/08/2022 9:39 AM EDT 05/08/2022 9:39 AM EDT Madhu Diana MD POINT OF CARE TEST O TED [facility] [place] [address] * Type and Screen Validity (05/08/2022 8:54 AM EDT) T&S only valid at [facility] LABORATORY Comment:This Type and Screen result is only valid at the [facility] Blood 05/08/2022 8:54 AM EDT 05/08/2022 8:55 AM EDT Narrative Resulting Agency Comment Spec In Lab Harjeet SEN BLOOD BANK LAB ORDER IGNACIO [facility] [place] [address] * ABORH Recheck Status (05/08/2022 8:54 AM EDT) ABORH Type Recheck Completed [facility] Blood 05/08/2022 8:54 AM EDT 05/08/2022 8:55 AM EDT Narrative Resulting Agency Comment Spec In Lab Harjeet SEN BLOOD BANK LAB ORDER IGNACIO Performing Organization Address City/[facility]/ZIP Co de Phone Number [facility] [place] [address] * Antibody screen (05/08/2022 8:54 AM EDT) Ab Screen Interp Negative [facility] Expires at [id number] on: 05/11/2022 [facility] Blood 05/08/2022 8:54 AM EDT 05/08/2022 8:55 AM EDT Narrative Resulting Agency Comment Spec In Lab Harjeet SEN BLOOD BANK LAB ORDER IGNACIO Performing Organization Address City/[facility]/ZIP Co de Phone Number [facility] [place] [address] * ABO/Rh Typing (05/08/2022 8:54 AM EDT) ABORH Type AB Pos [facility] Blood 05/08/2022 8:54 AM EDT 05/08/2022 8:55 AM EDT Narrative Resulting Agency Comment Spec In Lab Harjeet SEN BLOOD BANK LAB ORDER IGNACIO [facility] [place] [address] * Differential, Automated (05/08/2022 8:54 AM EDT) Neutrophil % 69.6 % [facility] Neutrophil Absolute 5.76 1.70 - 6.10 x10(3)/[facility] LABOR[facility] Lymph % 18.1 % [facility] Lymphocytes Abs 1.5 0.9 - 3.2 x10(3)/[facility]OR[facility]ORY Monocyte % 7.1 % [facility] Monocyte Abs 0.6 0.3 - 0.9 x10(3)/[facility] Eos % 3.7 % [facility] Eosinophils Abs 0.3 0.0 - 0.4 x10(3)/[facility]OR[facility] Basophil % 1.1 % [facility] Baso Absolute 0.1 0.0 - 0.1 x10(3)/[facility] Immature Gran % 0.40 % [facility] Comment: Immature granulocytes(IG's)percentage and absolute count will include metamyelocytes, myelocytes, and promyelocytes. Blood smears from CBCs yielding IG's will be scanned manually for concordance. If this scan disagrees with the automated IG or if promyelocytes are noted, a manual differential will be performed. Immature Gran Absolute 0.03 0.00 - 0.04 x10(3)/[facility] Blood 05/08/2022 8:54 AM EDT 05/08/2022 9:05 AM EDT Narrative Resulting Agency Comment Spec In Lab Madhu Diana MD HEMATOLOGY ORDERABLE S [facility] [place] [address] * Hemogram (05/08/2022 8:54 AM EDT) White Blood Cell 8.3 4.0 - 9.5 x10(3)/[facility] Red Blood Cell 4.83 4.58 - 5.54 x10(6)/[facility] Hemoglobin 14.5 13.7 - 16.5 g/dL [facility] Hematocrit 42.1 40.5 - 48.5 % [facility] Mean Cell Volume 87.2 82.9 - 93.1 [facility] Mean Cell Hemoglobin 30.0 27.5 - 32.1 pg [facility] Mean Cell Hemoglobin Concentration 34.4 32.0 - 35.7 g/dL [facility] Platelet 273 145 - 357 x10(3)/[facility] RDW Standard Deviation 40.7 36.0 - 45.0 [facility] RDW coefficient of variation 12.9 11.4 - 13.8 % [facility] Mean Platelet Volume 9.1 7.6 - 12.9 [facility] NRBC% auto 0.0 % [facility] NRBC Absolute 0.000 0.000 - 0.000 x10(3)/[facility] Blood 05/08/2022 8:54 AM EDT 05/08/2022 9:05 AM EDT Narrative Resulting Agency Comment Spec In Lab Madhu Diana MD HEMATOLOGY ORDERABLE S [facility] [place] [address] * (ABNORMAL) BMP w/fasting Glucose (05/08/2022 8:54 AM EDT) Glucose Fasting 168(H) 65 - 99 mg/dL [facility] Comment: ?Fasting* Glucose Interpretive [...] of Diabetes Mellitus, Position Statement from the [place] [employer]. ??Diabetes Care, Volume 33, Supplement 1, Jul 2009 Blood Urea Nitrogen 18 10 - 20 mg/dL [facility] Creatinine 1.44 0.80 - 1.50 mg/dL [facility] Sodium 142 135 - 145 mmol/L [facility] Potassium 3.6 3.5 - 5.0 mmol/L [facility] Comment: Please note: ??Patients with WBC >100,000 may have falsely elevated Potassium levels. ??For accurate Potassium quantification in these patients send serum separator tube (gold top) for subsequent determinations. ??Contact the Clinical Chemistry Laboratory if there are any questions. Chloride 103 98 - 107 mmol/L [facility] Carbon Dioxide 30 22 - 31 mmol/L [facility] Anion Gap 9 5 - 15 mmol/L [facility] Calcium 9.8 8.5 - 10.5 mg/dL [facility] Est Glomerular Filtration Rate 51(L) >=60 mL/min/1. 73 m?? [facility] [...] In Lab Madhu Diana MD CHEMISTRY ORDERABLES [facility] [place] [address] documented in this encounter Visit Diagnoses Diagnosis [...] Laura 05/08/22 at 1743, Recovery (Recovery-Hospital Unit) [facility] 05/08/2022 1:30 PM EDT 100 mL/hr 100 [...] OPEN, Routine 2037 (Given - Provider: Kiki Flores, JADEN) tacrolimus (Prograf) capsule 2 mg 2 mg, Oral, DAILY, First dose on Thu05/09/22 at 0900, Until Discontinued, DO NOT SPLIT, CRUSH OR OPEN, Routine 08 (Given - Provid er: Rhoda Velasquez, JADEN) tamsulosin (Flomax) capsule 0.4 mg 0.4 mg, Oral, DAILY, First dose on Thu05/09/22 at 0900, Until Discontinued, DO NOT CRUSH OR OPEN, Routine 08 (Given - Provid er: Rhoda Velasquez RN) [...] Routine documented in this encounter Care Teams Director Relationship Specialty Start Date End Date Urbano Jimenez DO [address] [place] [address] PCP - General Family Medicine 03/18/22 Ruchi Valles RN Nurse Clinic Transplant Surgery 07/30/15 documented as of this encounter
--- OUTSIDE RECORDS SUMMARY | 2024-04-04 13:54 | XMS_ITS | Encounter Summary ---
[place] [address] Care Team Providers Care Calendering Machine Operator Name Role Phone Urbano Jimenez DO Primary Care Provider [phone] Reason for Referral * Diagnostic Test (Routine) - Closed Specialty Diagnoses / Procedures Referred By Humberto t Referred To Contact Cardiology Diagnoses Persistent atrial fibrillation Procedures Transesophageal Echocardiogram (DAVEY) Madhu Diana MD [facility] [address] [facility] [place] [address] Referral ID Status Reason Start Date Expiration Date V isits Requested Visits Authorized [id number] Closed Specialty Service Requested 04/17/2022 07/15/2022 1 1 Encounter Details Date Type Department Care Team (Late st Contact Info) Description 04/08/2022 Orders Only Cardiology at [address] [address] Madhu Diana MD [facility] [place] [address] Persistent atrial fibrillation Social History [...] PM EDT Office Visit Cardiology at [address] [address] Jay Urban MD [facility] [place] [address] 04/15/2024 10:00 AM EDT Hospital Encounter Non-Invasive [place] [address] Arrived documented as of this encounter Goals Goal Patient Goal Type Associated Problems Recent Progress Patient-Stated? Author [facility] Medication Compliance and Understanding Patient Facing [...] Date: 05/08/2022 11:58 AM ? Patient Location: [facility] A : 1950 ? Height: 180 cm ? Account: [id number] Age: 71 yrs ? Weight: 101 kg Gender: Male ?BSA: 2.2 m2 Ordering Physician: GENA CHERRY Referring Physician: MADHU DIANA Performed By: Damien Ellis MD Reason For Study: Atrial Fibrillation Exam Location: [facility]. Interpretation Summary DAVEY performed to guide BATOOL closure in catheterization laboratory. Baseline: No BATOOL thrombus. Max os diameter of ~22 mm. Small pericardial effusion. Post: 27 mm Watchman FLX device well-seated within BATOOL. No mary-device leak. No change in pericardial effusion. Dlir-fs-hbbcm flow across atrial septostomy. See report for [...] BOLDEN Study Date: :58 AM Patient Location: [address] : 1950 Height: 180 cm Account: [id number] Age: 71 yrs Weight: 101 kg Gender: Male BSA: 2.2 m2 Ordering Physician: GENA CHERRY Referring Physician: MADHU DIANA Performed By: Damien Ellis MD Reason For Study: Atrial Fibrillation Exam Location: [facility]. Interpretation Summary DAVEY performed to guide BATOOL closure in catheterization laboratory. Baseline: No BATOOL thrombus. Max os diameter of ~22 mm. Small pericardialeffusion. Post: 27 mm Watchman FLX device well-seated within BATOOL. No mary-deviceleak. No change in pericardial effusion. Cesx-ig-rlugy flow across atrialseptostomy. See report for additional [...] fibrillation documented in this encounter Care Teams Calendering Machine Operator Relationship Specialty Start Date End Date Urbano Jimenez DO [address] [place] [address] PCP - General Family Medicine 03/18/22 Ruchi Valles RN Nurse Clinic Transplant Surgery 07/30/15 documented as of this encounter
--- OUTSIDE RECORDS SUMMARY | 2024-04-04 13:54 | XMS_ITS | Encounter Summary ---
[place] [address] Care Team Providers Care Technology Engineer Name Role Phone Urbano Jimenez DO Primary Care Provider [phone] Reason for Visit * Reason Onset Date Comments Other 05/07/2022 Asking if I had called Encounter Details Date Type Department Care Team (Late st Contact Info) Description 05/07/2022 Telephone Cardiology at [address] [phone] Herlinda Li RN Other (Asking if I [...] call him. No messages seen. Number to Packaging Technician Schedulers given. Pt reports a message was left but he accidentally erased it prior to listening. Herlinda Li RN 4A Cardiology documented in this encounter Plan of Treatment Upcoming Encounters Date Type Department Care Team (Late st Contact Info) Description 04/08/2024 1:40 PM EDT Office Visit Cardiology at [address] [phone] aJy Urban MD [facility] [place] [address] 04/15/2024 10:00 AM EDT Hospital Encounter Non-[place] [phone] Arrived documented as of this encounter Goals Goal Patient Goal Type Associated Problems Recent Progress Patient-Stated? Author [facility] Medication Compliance and Understanding Patient Facing Action Plan On track( 017 10:41 AM EDT) Selena Scott, [facility] Note: Patient Goal: Clear hepatitis C Timeframe to meet goal: within 12 weeks of therapy documented as of this encounter Visit Diagnoses Not on filedocumented in this encounter Care Teams Technology Engineer Relationship Specialty Start Date End Date Urbano Jimenez DO [address] [place] [address] PCP - General Family Medicine 03/18/22 Ruchi Valles RN Nurse Clinic Transplant Surgery 07/30/15 documented as of this encounter
--- OUTSIDE RECORDS SUMMARY | 2024-04-04 13:54 | XMS_ITS | Encounter Summary ---
Author Organization [facility] [place] [address] Care Team Providers Care Manager Steel Name Role Phone Urbano Jimenez DO Primary Care Provider [phone] Reason for Referral * Diagnostic Test (Routine) - Closed Specialty Diagnoses / Procedures Referred By Humberto t Referred To Contact Cardiology Diagnoses Persistent atrial fibrillation Procedures Transesophageal Echocardiogram (DAVEY) Tal Diana MD [facility] [address] [facility] [place] [address] Referral ID Status Reason Start Date Expiration Date V isits Requested Visits Authorized [id number] Closed Specialty Service Requested 07/06/2022 10/03/2022 1 1 Encounter Details Date Type Department Care Team (Late st Contact Info) Description 04/08/2022 Orders Only Cardiology at [address] [phone] Tal Diana MD [facility] [place] [address] Persistent atrial fibrillation Social History [...] 1:40 PM EDT Office Visit Cardiology at [address] [phone] Jay Urban MD [facility] [place] [address] 04/15/2024 10:00 AM EDT Hospital Encounter Non-Invasive Cardiology Lab [facility] [place] [phone] Arrived documented as of this encounter Goals Goal Patient Goal Type Associated Problems Recent Progress Patient-Stated? Author [facility] Medication Compliance and Understanding Patient Facing Action [...] 1950 ? Height: 180 cm ? Account: [id number] Age: 71 yrs ? Weight: 100 kg Gender: Male ?BSA: 2.2 m2 Ordering Physician: GENA CHERRY Referring Physician: UNKNOWN Performed By: Cathie Palmer MD Reason For Study: Atrial fibrillation History: Post-Watchman Interpreting Fellow: Cathie Palmer. Exam Location: [facility]. Interpretation Summary Post-Watchman DAVEY follow up. There [...] 58 : 1950 Height: 180 cm Account: [id number] Age: 71 yrs Weight: 100 kg Gender: Male BSA: 2.2 m2 Ordering Physician: GENA CHERRY Referring Physician: UNKNOWN Performed By: Cathie Palmer MD Reason For Study: Atrial fibrillation History: Post-Watchman Interpreting Fellow: Cathie Palmer. Exam Location: [facility]. Interpretation Summary Post-Watchman DAVEY follow up. There [...] documented in this encounter Care Teams Manager Steel Relationship Specialty Start Date End Date Urbano Jimenez DO [address] [place] [address] PCP - General Family Medicine 03/18/22 Ruchi Valles RN Nurse Clinic Transplant Surgery 07/30/15 documented as of this encounter
--- OUTSIDE RECORDS SUMMARY | 2024-04-04 13:54 | XMS_ITS | Encounter Summary ---
Author Organization [facility] [place] [address] Care Team Providers Care Bakery Assistant Name Role Phone Urbano Jimenez Ray KIRBY Primary Care Provider [phone] Encounter Details Date Type Department Care Team [...] PM EDT Office Visit Cardiology at [address] [phone] Jay Urban MD [facility] [place] [address] 04/15/2024 10:00 AM EDT Hospital Encounter Non-[place] [phone] Arrived documented as of this encounter Goals Goal Patient Goal Type Associated Problems Recent Progress Patient-Stated? Author [facility] Medication Compliance and Understanding Patient Facing Action Plan On track( 017 10:41 AM EDT) No Selena Cisneros, [facility] Note: Patient Goal: Clear hepatitis C Timeframe to meet goal: within 12 weeks of therapy documented as of this encounter Visit Diagnoses Not on filedocumented in this encounter Care Teams Bakery Assistant Relationship Specialty Start Date End Date Urbano Jimenez DO [address] [place] [address] PCP - General Family Medicine 03/18/22 Ruchi Valles RN Nurse Clinic Transplant Surgery 07/30/15 documented as of this encounter
--- OUTSIDE RECORDS SUMMARY | 2024-04-04 13:54 | XMS_ITS | Encounter Summary ---
[place] [address] Care Team Providers Care Machine Boss Name Role Phone Perrydeb Urbano Bell DO Primary Care Provider Encounter Details Date Type Department Care Team (Late st Contact Info) Description 04/08/2022 Notes Only Cardiology at [address] [phone] Nazia Coleman RN Social History Tobacco Use [...] on . Plan: SoT BATOOL Arana May 08 documented in this encounter Plan of Treatment Upcoming Encounters Date Type Department Care Team (Late st Contact Info) Description 04/08/2024 1:40 PM EDT Office Visit Cardiology at [address] [phone] Jay Urban MD [facility] [place] [address] 04/15/2024 10:00 AM EDT Hospital Encounter Non-[place] [phone] Arrived documented as of this encounter Goals Goal Patient Goal Type Associated Problems Recent Progress Patient-Stated? Author [facility] Medication Compliance and Understanding Patient Facing Action Plan On track( 017 10:41 AM EDT) Selena Scott, [facility] Note: Patient Goal: Clear hepatitis C Timeframe to meet goal: within 12 weeks of therapy documented as of this encounter Visit Diagnoses Not on filedocumented in this encounter Care Teams Machine Boss Relationship Specialty Start Date End Date Urbano Jimenez DO [address] [place] [address] PCP - General Family Medicine 03/18/22 Ruchi Valles RN Nurse Clinic Transplant Surgery 07/30/15 documented as of this encounter
--- OUTSIDE RECORDS SUMMARY | 2024-04-04 13:55 | XMS_ITS | Encounter Summary ---
[place] [address] Care Team Providers Care Albacore Fishing Boat Crewman Name Role Phone Urbano Denis DO Primary Care Provider Reason for Referral * Diagnostic Test (Routine) - Closed Specialty Diagnoses / Procedures Referred By Contac t Referred To Contact Cardiology Diagnoses Tachy-roman syndrome Procedures Echocardiogram Transthoracic Shaq Damon MD [facility] [place] [address] [facility] [place] [address] Referral ID Status Reason Start Date Expiration Date V isits Requested Visits Authorized [id number] Closed Specialty Service Requested 02/19/2022 04/19/2022 1 1 Reason for Visit * Diagnostic Test (Routine) - Closed Specialty Diagnoses / Procedures Referred By Contpaula t Referred To Contact Cardiology Diagnoses Tachy-roman syndrome Procedures Echocardiogram Transthoracic Shaq Damon MD [facility] [place] [address] [facility] [place] [address] Referral ID Status Reason Start Date Expiration Date V isits Requested Visits Authorized [id number] Closed Specialty Service Requested 02/19/2022 04/19/2022 1 1 Encounter Details Date Type Department Care Team (Late st Contact Info) Description 02/19/2022 12:34 PM EDT - 02/19/2022 11:59 PM EDT Hospital Encounter Non-Invasive Cardiology Lab [facility] [place] [address] Shaq Damon MD [facility] [place] [address] Tachy-roman syndrome Discharge Disposition: Home Social History [...] 1:40 PM EDT Office Visit Cardiology at [address] [phone] Jay Urban MD [facility] [place] [address] 04/15/2024 10:00 AM EDT Hospital Encounter Non-Invasive [place] [phone] Arrived documented as of this encounter Goals Goal Patient Goal Type Associated Problems Recent Progress Patient-Stated? Author [facility] Medication Compliance and Understanding Patient Facing Action Plan On track( 017 10:41 AM EDT) Selena Scott RPH Note: Patient Goal: Clear hepatitis C [...] 4:39 PM EDT ? Echocardiogram Report Name: JOSIAS AKINSDIANNA Gomez ? Study Date: 02/19/2022 01:02 PM ?BP: 152/81 mmHg ?Patient Location: 4A ? HR: 68 : 1950 ?Height: 180 cm ? Account: [id number] Age: 71 yrs ?Weight: 103 kg Gender: [...] is moderate mitral regurgitation. Procedure Limited - 58472. Doppler - 73637. Color Doppler - 93681. Satisfactory quality. There is a pacemaker rhythm. [...] HR: 68 : 1950 Height: 180 cm Account:[id number] Age: 71 yrs Weight: 103 kg Gender: [...] is moderate mitral regurgitation. Procedure Limited - 72965. Doppler - 62545. Color Doppler - 57856. Satisfactoryquality. There is a pacemaker rhythm. Left [...] dysfunction documented in this encounter Care Teams Albacore Fishing Boat Crewman Relationship Specialty Start Date End Date Urbano Denis DO [address] [place] [address] PCP - General 09/03/12 03/17/22 Ruchi Valles RN Nurse Clinic Transplant Surgery 07/30/15 documented as of this encounter
--- OUTSIDE RECORDS SUMMARY | 2024-04-04 13:55 | XMS_ITS | Encounter Summary ---
[place] [address] Care Team Providers Care Lead Warehouse Associate Name Role Phone Urbano Denis DO Primary Care Provider [phone] Reason for Visit * Reason Onset Date Comments Post Procedure Call 02/06/2022 Encounter Details Date Type Department Care Team (Late st Contact Info) Description 02/06/2022 Notes Only Cardiology at [address] [phone] Carmela Bentley, RN Post Procedure Call Social [...] PM EDT Office Visit Cardiology at [address] [phone] Jay Urban MD [facility] [place] [address] 04/15/2024 10:00 AM EDT Hospital Encounter Non-[place] [phone] Arrived documented as of this encounter Goals [...] on filedocumented in this encounter Care Teams Lead Warehouse Associate Relationship Specialty Start Date End Date Urbano Denis DO [address] [facility] 1 [place] [address] PCP - General 09/03/12 03/17/22 Ruhci Valles RN Nurse Clinic Transplant Surgery 07/30/15 documented as of this encounter
--- OUTSIDE RECORDS SUMMARY | 2024-04-04 13:55 | XMS_ITS | Encounter Summary ---
[place] [address] Care Team Providers Care Tar Distillation Supervisor Name Role Phone Urbano Denis DO Primary Care Provider [phone] Encounter Details Date Type Department Care Team (Late st Contact Info) Description 02/18/2022 Telephone Cardiology at [address] [phone] Marisela Bob RN Social History Tobacco Use [...] Recent visit to his local ER ([facility]) with increased pericardial effusion after pacemaker. Patient statesthat he feels like something is not right and he is very weak/dizzy. The patient plans to be evaluated first at [facility] again with possible transfer to [facility] if needed. Would plan to repeat limited echo to assess for pericardial effusion after recent pacer and possible device interrogation. 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 He is being worked up at [facility] for an BATOOL occluder ([place]) in Mar 2022. Plan: -going to his local ER for initial evaluation -rule out pericardial tamponade -interrogate pacer for arrhythmia -standard labs/vitals -evaluate for need to transfer down to [facility] * Telephone Encounter - Marisela Bob RN - 02/18/2022 12:50 PM EDT RTC to Mrs Bolden regarding her phone call stating her , Mr Bolden was just seen in the ER at [facility], complaint of fatique and was found [...] PM EDT Office Visit Cardiology at [address] [phone] Jay Urban MD [facility] [place] [address] 04/15/2024 10:00 AM EDT Hospital Encounter Non-[place]vasive [place] [phone] Arrived documented as of this encounter Goals Goal Patient Goal Type Associated Problems Recent Progress Patient-Stated? Author [facility] Medication Compliance and Understanding Patient Facing Action Plan On track( 017 10:41 AM EDT) Selena Scott, [facility] Note: Patient Goal: Clear hepatitis C Timeframe to meet goal: within 12 weeks of therapy documented as of this encounter Visit Diagnoses Not on filedocumented in this encounter Care Teams Tar Distillation Supervisor Relationship Specialty Start Date End Date Urbano Denis DO [facility] [address] [facility] 1 [place] [address] PCP - General 09/03/12 03/17/22 Ruchi Valles RN Nurse Clinic Transplant Surgery 07/30/15 documented as of this encounter
--- OUTSIDE RECORDS SUMMARY | 2024-04-04 13:55 | XMS_ITS | Encounter Summary ---
Author Organization [facility] Address [facility] [place] [address] Care Team Providers Care Biology Specialist Name Role Phone Perrydeb Urbano Bell DO Primary Care Provider [phone] Encounter Details Date Type Department Care Team (Late st Contact Info) Description 03/18/2022 9:20 AM EDT Office Visit Cardiology at [address] [phone] Tal Diana MD [facility] [place] [address] Atrial fibrillation with RVR - had flutter initially, then fib (Primary Dx); Hypertension secondary to other renal disorders; Coronary artery disease involving assiniboine and sioux heart, unspecified vessel or lesion type, unspecified [...] original note were not included. [facility] [place] [address] Structural Heart Disease New Patient Note Primary [...] Cardioversion: No/Yes Anti-Arrhythmics: No/Yes Sleep Apnea: No/Yes [id number] ( HTN 1, Age 1, DM [...] of a dual chamber Medtronic pacemaker Medtronic [place] XT DR MRI Model ??? Tachy-sakina syndrome [...] Vitamin D deficiency ??? 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 halfway current use of immunosuppressive drug ??? CAH [...] EXAM UP TO 1 HR Y OR [facility] PROV N/A 05/10/2020 FLUOROSCOPY (WRVU 0.17) performed by Joseph Ang MD at [facility] OR ??? PRO ANASTOMOSIS, AV, ANY SITE Left 05/09/2015 AV FISTULA CREATION, DIRECT HEMODIALYSIS, ANY SITE, EG ASHWINI FISTULA UPPER EXTREMITY performed by Que Amaro MD at [facility] OR ??? PRO CYSTOURETHROSCOPY, URETER CATHETER Left 06/17/2018 CYSTO, RETROGRADE, URETEROPYELOGRAPHY (WRVU 2.37) performed by Edinson Grider III, MD at [facility] ??? PRO LAMINEC/FACETECT/FORAMIN, LUMBAR 1 SEG N/A 05/10/2020 LAMINECTOMY, FACETECTOMY & FORAMINOTOMY,LUMBAR, ONE LEVEL (WRVU 15.37) performed by Joseph Ang MD at [facility] OR ??? PRO LAMINOTOMY, LUMBAR DISK, 1 INTRSP N/A 05/10/2020 LAMINOTOMY, DECOMPRESSION, FORAMINOTOMY, LUMBAR (WRVU 13.18) performed by Joseph Ang MD at [facility] OR ??? PRO MICROSURG TECHNIQUES, REQ OPER MICROSCOPE N/A 05/10/2020 MICROSCOPE USE (WRVU 3.46) performed by Joseph Ang MD at [facility] OR ??? PRO REIMPLANT URETER, SINGLE URETER Left 05/20/2016 @URETERONEOCYSTOSTOMY ANASTOMOSIS OF SINGLE URETER TO BLADDER performed by Santosh Arredondo MD at [facility] OR ??? PRO REIMPLANT URETER, SINGLE URETER N/A 05/20/2016 @URETERONEOCYSTOSTOMY ANASTOMOSIS OF SINGLE URETER TO BLADDER performed by Que Amaro MD at [facility] OR ??? PRO TOTAL KNEE ARTHROPLASTY Right 11/25/2017 TOTAL KNEE ARTHROPLASTY (WRVU 20.72) performed by Breezy Dale MD at [facility] OR ??? PRO TRANSPLANT, PREP CADAVER RENAL GRAFT N/A 09/16/2015 @PREPARATION CADAVERIC RENAL ALLOGRAFT performed by Franko Larkin MD at [facility] OR ??? PRO TRANSPLANTATION OF KIDNEY N/A 09/16/2015 @KIDNEY TRANSPLANT, WITHOUT RECIPIENT NEPHRECTOMY performed by Franko Larkin MD at [facility] OR ??? TISSUE TRANSFER kidney ??? US RENAL TRANSPLANT LEFT Left 01/31/2019 US Renal Transplant Left 01/31/2019 [facility] RAD ULTRASOUND ??? US RENAL TRANSPLANT LEFT Left 02/07/2019 US Renal Transplant Left 02/07/2019 [facility] ULTRASOUND SOCIAL HISTORY: reports that he [...] be decided after discussion withneurologist Dr. Penaloza ([phone]) whom we left a message for recommendations. [...] to speak with his primary neurologist at [facility], Dr. Liu, today by phone. No absolute [...] Diana MD Director, Structural Heart Disease Pager [phone] documented in this encounter Plan of Treatment Upcoming Encounters Date Type Department Care Team (Late st Contact Info) Description 04/08/2024 1:40 PM EDT Office Visit Cardiology at [address] [phone] Jay Urban MD [facility] [address] 04/15/2024 10:00 AM EDT Hospital Encounter Non-Invasive Cardiology Lab [facility] [place] [address] Arrived documented as of this encounter Goals [...] other renal disorders Coronary artery disease involving assiniboine and sioux heart, unspecified vessel or lesion type, unspecified whether angina present Tachy-sakina syndrome Sinoatrial node dysfunction Pacemaker Cardiac pacemaker in situ Aortic stenosis, mild Aortic valve disorders Mitral valve insufficiency, unspecified etiology documented in this encounter Care Teams Biology Specialist Relationship Specialty Start Date End Date Urbano Jimenez DO [address] [place] [address] PCP - General Family Medicine 03/18/22 Ruchi Valles RN Nurse Clinic Transplant Surgery 07/30/15 documented as of this encounter
--- OUTSIDE RECORDS SUMMARY | 2024-04-04 13:55 | XMS_ITS | Encounter Summary ---
Author Organization [facility] [place] [address] Care Team Providers Care Testing Specialist Name Role Phone AdeelUrbano boland Primary Care Provider [phone] Reason for Visit * Reason Comments Medication Refill Encounter Details Date Type Department Care Team (Late st Contact Info) Description 02/13/2022 Refill [place] [phone] Tal Eagle MD [facility] [address] Social History Tobacco Use Types Packs/Day Years [...] PM EDT Office Visit Cardiology at [address] [phone] [facility] [place] [address] 04/15/2024 10:00 AM EDT Hospital Encounter Non-[place] [address] Arrived documented as of this encounter Goals Goal Patient Goal Type Associated Problems Recent Progress Patient-Stated? Author [facility] Medication Compliance and Understanding Patient Facing Action Plan On track( 017 10:41 AM EDT) Selena Scott, [facility] Note: Patient Goal: Clear hepatitis C Timeframe to meet goal: within 12 weeks of therapy documented as of this encounter Visit Diagnoses Not on filedocumented in this encounter Care Teams Testing Specialist Relationship Specialty Start Date End Date Urbano Denis DO [address] [place] [address] [address] [facility] 1 [place] [address] PCP - General 09/03/12 03/17/22 Ruchi Valles RN Nurse Clinic Transplant Surgery 07/30/15 documented as of this encounter
--- OUTSIDE RECORDS SUMMARY | 2024-04-04 13:55 | XMS_ITS | Encounter Summary ---
Author Organization [facility] [place] [address] Care Team Providers Care Arc Welder Apprentice Name Role Phone AdeelUrbano boland Primary Care Provider Encounter Details Date Type Department Care Team (Late st Contact Info) Description 02/10/2022 Notes Only Cardiology at [address] [phone] Yossi Eric, RN Social History Tobacco Use [...] C; CVA; HF and current cigar smoker. [id number] VASc: 7 ( HF, HTN, DM, CVA, Vascular Disease, Age) HAS-BLED: 6 (HTN, RF, CVA, Bleeding, Age) Anticoagulation/antiplatelet: None currently Plan: Schedule clinic with . documented in this encounter Plan of Treatment Upcoming Encounters Date Type Department Care Team (Late st Contact Info) Description 04/08/2024 1:40 PM EDT Office Visit Cardiology at [address] [phone] Jay Urban MD [facility] [place] [address] 04/15/2024 10:00 AM EDT Hospital Encounter Non-[place] [phone] Arrived documented as of this encounter Goals Goal Patient Goal Type Associated Problems Recent Progress Patient-Stated? Author [facility] Medication Compliance and Understanding Patient Facing Action Plan On track( 017 10:41 AM EDT) Selena Scott, [facility] Note: Patient Goal: Clear hepatitis C Timeframe to meet goal: within 12 weeks of therapy documented as of this encounter Visit Diagnoses Not on filedocumented in this encounter Care Teams Arc Welder Apprentice Relationship Specialty Start Date End Date Urbano Denis DO [address] [place] [address] [address] [place] [address] PCP - General 09/03/12 03/17/22 Hai STANLEY,Ruchi Nurse Clinic Transplant Surgery 07/30/15 documented as of this encounter
--- OUTSIDE RECORDS SUMMARY | 2024-04-04 13:55 | XMS_ITS | Encounter Summary ---
Author Organization [facility] [place] [address] Care Team Providers Care Paper Making Machine Operator Name Role Phone Urbano Denis DO Primary Care Provider + [phone] Reason for Visit * Auth/Cert Specialty Diagnoses / Procedures Referred By Humberto flor Referred To Contact Diagnoses Tachy-roman syndrome Tachy-Roman Syndrome Procedures emerg ipi Niru Harrison MD [facility] [place] [address] [facility] Referral ID Status Reason Start Date Expiration Date Visits Re quested Visits Authorized [id number] 1 1 Encounter Details Date Type Department Care Team (Latest Contact Info) Description 01/30/2022 6:01 PM EDT - 02/01/2022 4:11 PM EDT Hospital Encounter Cardiac [place] [address] Misael Ellis MD [facility] [place] [address] Niru Harrison MD [facility] [place] [address] Atrial fibrillation with RVR - had flutter [...] Ethel Akins Patient Age: 71 y.o. Language: Mongolian Race: White Ethnicity: Not nor Admit date: 01/30/2022 Discharge date and time: 02/01/2022 Attending Physician: Misael Ellis MD Discharge Physician: Misael Ellis MD ?? I have seen and examined this patient and discussed with the ncaa compliance internship, resident, fellow. ??I agree with the plan noted ?? This is a 71 year old gentleman, followed by cardiology at [facility] (Dr Michael Brown). 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 ??2019 he underwent PCI, also history of basal ganglia bleed. ??Now with atrial fibrillation. He underwent pacemaker implantation (see details below). Note that we did not anticoagulate him as he has history of basal ganglia bleed. His [id number] score is high and I have reached out to his indoor plant technician (Dr. Michael rBown) to have him follow up (attempt at latter-day of sinus, benefits:risks foranticoagulation, consideration of Watchman Device). Niru Harrison MD, Karen, [facility] Attending Urban Design Consultant ID: Ethel Akins is a 71 y.o. [...] DO [address] [place] [address] / [facility] [id number] Pending Studies and Lab Data: none Discharge [...] Vitamin D deficiency ??? 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 intermission coordinator current use of immunosuppressive drug ??? CAH [...] s/p renal transplant in 2016, also with fqs-vlgroyo-myxeinyfa diabetesmellitus, who presents with 3 weeks of intermittent lightheadedness. ?? He reports that approximately 3 weeks ago intermittent lightheadedness that was random and without any associated factors. He presented to the ER 2 times, initially to [facility] where hewas incidentally found to have [...] after that. This morning he presented to [facility] with frequent e pisodes of lightheadedness, as well as dyspnea on exertion, and was found to be in A. fib with intermittent bradycardia into the 20s. [facility] cardiology was consulted for transfer for pacemaker [...] place for about 24 hours. ?? At [facility] labs were notable for WBC 10.3, [...] Mr. Akins presented as a transfer from [facility] due to symptomatic pauses in his [...] therapeutic range. He was continued on his STATE EPIDEMIOLOGIST tacrolimus and CellCept throughout admission.?? Procedures: Dual-Chamber [...] the hospital. PCP: Urbano Denis DO @ [phone] General Instructions - BEGIN EP DISCHARGE INSTRUCTIONS - FINAL PACEMAKER RECOMMENDATIONS: 1. Standard post implant discharge instructions (see below): 2. Medications as listed above. 3. You may use ice packs over the incision. Make sure to use a cloth seconds sorter (such as a towel) in between the [...] F. The office scheduling phone number is [phone]. ARM MOVEMENT RESTRICTIONS POST-IMPLANT - Do not [...] product, please call the device clinic at [phone]. - END EP DISCHARGE INSTRUCTIONS - Future Appointments and Orders Future Appointments and Orders Future Appointments Provider Department Dept Phone 02/05/2022 11:00 AM Byron Brown MD Cardiology at [facility] Arrive at: [facility] [facility] [phone] 02/12/2022 11:00 AM Elisha Amaya RN Cardiology at [facility] Arrive at: [facility] Area [phone] 04/04/2022 1:30 PM Mayco Barnes PA Cardiology at [facility] Arrive at: [place] [facility] [phone] 05/05/2022 1:30 PM Elisha Amaya RN Cardiology at [facility] Arrive at: [place] [facility] [phone] Primary Team Inpatient Physicians at [facility] was: Attending Physician(s): Niru Harrison MD Fellow: Que Raygoza MD Resident(s): Kayy Acosta MD Inpatient Provider Contact Information: If you have questions about this document please contact the [facility] belt machine operator at and ask for one [...] incision. Make sure to use a cloth seconds sorter (such as a towel) in between the [...] F. The office scheduling phone number is [phone]. ARM MOVEMENT RESTRICTIONS POST-IMPLANT - Do not [...] product, please call the device clinic at [phone]. - END EP DISCHARGE INSTRUCTIONS - * [...] the hospital. PCP: Urbano Denis DO @ [phone] documented in this encounter Medications at Time [...] and device interrogation done this morning by CAORLIN. Domenic rabago CDI. AVS reviewed with pt [...] Mr. Akins is referred to his primary indoor plant technician ,Dr. Brown and his neurologist, Dr. Rebolledo regarding this issue. Post implant arm restrictions discussed. Follow up at [facility] device clinic. Nikolas Loving MD S Cardiac Electrophysiology 02/01/2022 9:44 AM * Nikolas Loving MD - 02/01/2022 9:17 AM EDT Cardiac Electrophysiology Post-Implant Device Assessment/Rounding Note Ethel Akins [id number] 02/01/2022 History: Ethel Akins is a 71 [...] FINAL LEAD PARAMETERS: Pulse generator: ? 1. Pertinoure XT DR MRI Model #W1DR01, Serial # [id number] Atrial lead ?? 1. Medtronic CapsureFix Model# 5076-45 cm Serial# [id number] ??? Bipolar, steroid-tipped, active-fixation IS-1 lead ??? Access: ? Right Axillary vein ??? Location ? Right atrial appendage ??? F wave, pacemaker: ?? 0.6 mV ??? Pacing threshold, pacemaker: N/A (pt in atrial flutter) ??? Impedance, pacemaker: ??437 Ohms ??? Diaphragmatic Stim. @ 8V: ??No Ventricular electrode: ?? Medtronic CapsureFix Model# 5076-52 cm Serial# [id number] ??? Bipolar, steroid-tipped, active-fixation IS-1 lead ??? Access: ? Right Axillary vein ??? Location: ?Right ventricular apical septum ??? R wave, pacemaker: ?11.1 mV ??? Pacing threshold, pacemaker: 0.5 V at 0.4 ms ??? Impedance, pacemaker: ??607 ohms ??? Diaphragmatic Stim. @ 8V : No Diagnostics Pacing Mode: AAIR <==> DDDR 60/130/130 Presenting EGMs: -VS/-TOOLING ENGINEERING TECH Underlying Rhythm: AFib 70-80's Atrial Episodes: 97.2% [...] post placement of right anterior chest wall dual-service desk team lead. Impression: 71 y.o. male who [...] 02/01/22. ? Dr. Nikolas Loving, electrophysiology attending ([id number]) * Niru Harrison MD - 02/01/2022 9:09 AM EDT Cardiology Day of Discharge Note ?? I have seen and examined this patient and discussed with the ncaa compliance internship, resident, fellow. ??I agree with the plan noted ?? This is a 71 year old gentleman, followed by cardiology at [facility] (Dr Michael Brown). 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 ??2019 he underwent PCI, also history of basal ganglia bleed. ??Now with atrial fibrillation. He underwent pacemaker implantation (see details below). Note that we did not anticoagulate him as he has history of basal ganglia bleed. His [id number] score is high and I have reached out to his indoor plant technician (Dr. Michael Brown) to have him follow up (attempt at latter-day of sinus, benefits:risks foranticoagulation, consideration of Watchman Device). ?? Niru Harrison MD, Karen, [facility] Cardiology Attending? Ethel Gomez Keniavaughn was seen [...] examined this patient and discussed with the ncaa compliance internship, resident, fellow. I agree withthe plan noted ?? This is a 71 year old gentleman, followed by cardiology at [facility] (Dr Michael Brown). He has history of renal transplant, previous tachy-cardia mediated cardiomyopathy but recovered LV systolic function. 2019 he underwent PCI, also history of basal ganglia bleed. Now with atrial fibrillation. He will be ev aluated for pacemaker implantation--question of tachy/roman syndrome. ?? Niru Harrison MD, Karen, [facility] Cardiology Attending ?? Patient Name: Ethel [...] atrial fibrillation/ flutter previously on Eliquis but OK'ed due to hemorrhagic stroke, tachymyopathy with EF [...] examined this patient and discussed with the ncaa compliance internship, resident, fellow. I agree withthe plan noted This is a 71 year old gentleman, followed by cardiology at [facility] (Dr Michael Brown). He has history of renal transplant, previous tachy-cardia mediated cardiomyopathy but recovered LV systolic function. 2019 he underwent PCI, also history of basal ganglia bleed. Now with atrial fibrillation. He will be ev aluated for pacemaker implantation--question of tachy/roman syndrome. Niru Harrison MD, Karen, [facility] Cardiology Attending Patient Name: Ethel Akins Service: Cardiology Team Responsible Attending: MISAEL ELLIS MD PCP: Urbano Denis DO PCP phone #: [phone] ID/Chief Complaint: Lightheadedness Tachybradycardia syndrome History of Present Illness: Mr. 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 He reports that approximately 3 weeks ago intermittent lightheadedness that was random and without any associated factors. He presented to the ER 2 times, initially to [facility] where hewas incidentally found to have [...] after that. This morning he presented to [facility] with frequent e pisodes of lightheadedness, as well as dyspnea on exertion, and was found to be in A. fib with intermittent bradycardia into the 20s. [facility] cardiology was consulted for transfer for pacemaker [...] in place for about 24 hours. At [facility] labs were notable for WBC 10.3, [...] Vitamin D deficiency ??? 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 [facility] current use of immunosuppressive drug ??? CAH [...] kg ABG No results for input(s): PHART, QXC5PYR, PO2ART, DMU1FQB in the last 168 hours. Examination: General [...] in the last 7068 hours. Invalid input(s): IENPAUHLDWW2K Heme: No results for input(s): LDH, HAPTOGLOBIN, URICACID in the last 168 hours. Microbiology: None Diagnostic Studies: No results found for this visit on 01/30/22. EKG here 01/30: Prior EKG at [facility] 01/10: CXR 01/30/22- MRI brain at [facility] 01/16/22: ASSESSMENT: Mr. Black is a 71M [...] block and frequent symptomatic pauses, transferred from [facility]. 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 Unclear trigger of his recurrent aflutter that was not detected on prior zioin 03/2021. No recent ischemic or infectious symptoms and exam today is benign. PLAN: Admit to Cardiology Team S1, Team Pager #[phone](S1) #Aflutter with variable block #symptomatic systolic pauses [...] MD Medicine, PGY-2 Cardiology Team S1, pager #[phone] 01/30/2022 documented in this encounter Miscellaneous Notes [...] original note were not included. [facility] [place] [address] CARDIOLOGY ELECTROPHYSIOLOGY NOTE 01/31/22 Consult Reason: Lightheadedness in the setting of afib/aflutter tachy-roman syndrome and ESRD status HPI: Mr. Akins is a pleasant 71 yo M with hx of atypical aflutter/afib, HTN, tachy-roman syndrome, renal transplant who was transferred to [facility] on 01/30/22 for frequent episodes of lightheadedness. [...] night. He presented to the ED in [facility] three times over the past three weeks [...] arrhythmia and still living, age 89 Father -OK at age 62 Social Hx: T: smokes cigars E: has not had alcohol in years, no hx of heavy ETOH use D: no substance use [place] Retired. Allergy: + [facility] No medication allergies No current facility-administered medications [...] 95, LAFB, qtc 500 EKG 01/30/22 at [facility]: afib, HR 76 TTE 01/31/22: LVEF 46% [...] past three weeks. He was transferred to [facility] for EP evaluation. He has a hx of renal transplant in 2016 and developed an RAY with Cr up to 1.8s from 1.2 oneyear ago here. For this reason, optimizing his cardiac output with better rate control is needed to protect the transplanted kidney. He qualifies for a dual chamber pacemaker. PROCESS MAINTENANCE TECHNICIAN was considered but this will not be [...] Gonzales. Attestation to follow. Anali Dominguez MD Fixer Boarding Room, PGY4 Pager [phone] Addendum I personally interviewed and examined the patient, reviewed the available data. The above note reflects our thoughts and discussion. This 71-year-old man is transferred from [facility], for consideration of pacemaker therapy for [...] his paroxysmal to persistentatrial fibrillation, and elevated THZ3WC2-CSWn score, CVA protection should be considered. ERASMO GONZALES MD documented in this encounter Plan of Treatment Upcoming Encounters Date Type Department Care Team (Late st Contact Info) Description 04/08/2024 1:40 PM EDT Office Visit Cardiology at [address] [place] [address] Jay Urban MD [facility] [place] [address] 04/15/2024 10:00 AM EDT Hospital Encounter Non-Invasive Cardiology Lab [facility] [place] [address] Arrived Scheduled Orders Name Type Priority Associated Diagnoses Orde r Schedule EKG 12 Lead ECG Routine Atrial fibrillation with RVR - had flutter initially, then fib Tachy-roman syndrome One Time for 1 Occurrences starting 01/31/2022 until 01/31/2022 documented as of this encounter Goals Goal Patient Goal Type Associated Problems Recent Progress Patient-Stated? Author [facility] Medication Compliance and Understanding Patient [...] * POCT Glucose (02/01/2022 1:13 PM EDT) [facility] Signature Glucose, POC 120 65 - 199 mg/dL [facility] Comment: Supplemental ranges: <140 mg/dL before meals <180 mg/dL all other times of the day Blood 02/01/2022 1:13 PM EDT 02/01/2022 1:13 PM EDT Misael Ellis MD POINT OF CARE TEST O RDERABLES Performing Organization Address [facility] de Phone Number [facility] [place] [address] * (ABNORMAL) POCT Glucose (02/01/2022 11:21 AM EDT) Glucose, POC 254(H) 65 - 199 mg/dL [facility] Comment: Supplemental ranges: <140 mg/dL before meals <180 mg/dL all other times of the day Blood 02/01/2022 11:2 1 AM EDT 02/01/2022 11:21 AM EDT Misael Ellis MD POINT OF CARE TEST O TED Performing Organization Address [facility] de Phone Number [facility] [place] [address] * (ABNORMAL) POCT Glucose (02/01/2022 11:09 AM EDT) Glucose, POC 218(H) 65 - 199 mg/dL [facility] Comment: Supplemental ranges: <140 mg/dL before meals <180 mg/dL all other times of the day Blood 02/01/2022 11:0 9 AM EDT 02/01/2022 11:09 AM EDT Misael Ellsi MD POINT OF CARE TEST O TED Performing Organization Address [facility] de Phone Number [facility] [place] [address] * XR Chest PA & Lateral (Generic) (02/01/2022 7:56 AM EDT) Anatomical Region Laterality Modality Chest N/A Digital Radiogra phy Impressions 02/01/2022 11:17 AM EDT No pneumothorax status post placement of right anterior chest wall dual-service desk team lead. Thank you for letting us participate in the care of this patient. ??If you are a health care provider and have any questions regarding this report, please contact the number below. ??For patients who have questions please contact the health health care marketing specialist that requested your imaging first. ? Electronically signed by: Kitty Valencia MD, [facility] ([phone]), at 02/01/2022 11:17 AM Narrative 02/01/2022 11:17 [...] status post placement of right anterior chest walldual-service desk team lead. Thank you for letting us participate in the care of this patient. If youare a health care provider and have any questions regarding this report,please contact the number below. For patients who have questions please contactthe health health care marketing specialist that requested your imaging first. Electronically signed by: Kitty Valencia MD, [facility]([phone]), at 02/01/2022 11:17 AM Jay Urban MD [...] O RDERABLES [facility] [place] [address] * Phosphorus (02/01/2022 3:29 AM EDT) [facility] Phosphorus 2.9 2.5 - 4.5 mg/dL [facility] Blood 02/01/2022 3:29 AM EDT 02/01/2022 3:43 AM EDT Narrative Resulting Agency Comment Spec In Lab Jay Urban MD CHEMISTRY ORDERABLES Performing Organization Address [facility] Co de Phone Number [facility] [place] [address] * Magnesium (02/01/2022 3:29 AM EDT) [facility] Magnesium 0.72 0.69 - 1.07 mmol/L [facility] Blood 02/01/2022 3:29 AM EDT 02/01/2022 3:43 AM EDT Narrative Resulting Agency Comment Spec In Lab Jay Urban MD CHEMISTRY ORDERABLES Performing Organization Address [facility] Co de Phone Number [facility] [place] [address] * (ABNORMAL) Basic Metabolic Panel (non-fasting) (02/01/2022 [...] CHEMISTRY ORDERABLES [facility] [place] [address] * POCT Glucose (01/31/2022 8:37 PM EDT) Glucose, POC 99 65 - 199 mg/dL [facility] Comment: Supplemental ranges: <140 mg/dL before meals <180 mg/dL all other times of the day Blood 01/31/2022 8:37 PM EDT 01/31/2022 8:37 PM EDT Misael Ellis MD POINT OF CARE TEST O TED Performing Organization Address City/[facility] Co de Phone Number [facility] [place] [address] * (ABNORMAL) POCT Glucose (01/31/2022 5:05 PM EDT) Glucose, POC 225(H) 65 - 199 mg/dL [facility] Comment: Supplemental ranges: <140 mg/dL before meals <180 mg/dL all other times of the day Blood 01/31/2022 5:05 PM EDT 01/31/2022 5:05 PM EDT Misael Ellis MD POINT OF CARE TEST O TED Performing Organization Address [facility] Co de Phone Number [facility] [place] [address] * POCT Glucose (01/31/2022 2:31 PM EDT) Glucose, POC 124 65 - 199 mg/dL [facility] Comment: Supplemental ranges: <140 mg/dL before meals <180 mg/dL all other times of the day Blood 01/31/2022 2:31 PM EDT 01/31/2022 2:31 PM EDT Misael Ellis MD POINT OF CARE TEST O TED Performing Organization Address [facility] Co de Phone Number [facility] [place] [address] * ELECTROPHYSIOLOGY PROCEDURE (01/31/2022 1:49 PM EDT) Anatomical Region Laterality Modality Other Narrative 01/31/2022 2:09 PM EDT [facility] CARDIAC ELECTROPHYSIOLOGY LABORATORY CARDIAC DEVICE OPERATIVE NOTE PATIENT: Ethel Akins DATE OF OPERATION: 01/31/2022 FUNDING COORDINATOR (Aquarium Tank Attendant): JAY URBAN MD, PhD FIELD APPLICATION ENGINEER: Anali Dominguez MD REFERRING MEDICAL RECORD RETRIEVAL SPECIALIST: Niru Harrison MD PRE-PROCEDURE DIAGNOSIS/INDICATION(S): 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 Implantation of a permanent transvenous dual chamber pacemaker system ANESTHESIA: local and monitored anesthesia care INTRAVENOUS CONTRAST: 10 mL Omnipaque FLUOROSCOPY TIME & DOSE: 13.2 minutes, 119 Gycm2 ESTIMATED BLOOD LOSS: 15 mL COMPLICATIONS: none immediate IMPLANTED HARDWARE and FINAL LEAD PARAMETERS: Pulse generator: ? 1. SoftArt [place] XT DR MRI Model #W1DR01, Serial # [id number] Atrial lead ?? 1. Medtronic CapsureFix Model# 5076-45 cm Serial# [id number] ? ? Bipolar, steroid-tipped, active-fixation IS-1 lead ? ? Access: ? Right Axillary vein ? ? Location ? Right atrial appendage ? ? F wave, pacemaker: ?? 0.6 mV ? ? Pacing threshold, pacemaker: N/A (pt in atrial flutter) ? ? Impedance, pacemaker: ??437 Ohms ? ? Diaphragmatic Stim. @ 8V: ??No Ventricular electrode: ?? Medtronic CapsureFix Model# 5076-52 cm Serial# [id number] ? ? Bipolar, steroid-tipped, active-fixation IS-1 lead [...] guidance using modified ??Seldinger micropuncture technique. A [place] ??wire was advanced to the right atrium under fluoroscopic guidance. Over the guide wire, a 9-Egyptian long peel-away Safe-sheath was inserted into the [...] Over the retained guide wire, a 7 Egyptian peel-away Safe-sheath was inserted into the vein [...] and participated in this procedure as the intertype operator. The patient's spouse Mara was updated immediately following the procedure. Recommend no systemic anticoagulation x 72 hours minimum. Electronically signed by: Jay Urban MD, PhD, [facility] Procedure Note Jay Urban MD - 01/31/2022 [facility] CARDIAC ELECTROPHYSIOLOGY LABORATORY CARDIAC DEVICE OPERATIVE NOTE PATIENT: Ethel Akins DATE OF OPERATION: 01/31/2022 FUNDING COORDINATOR (Aquarium Tank Attendant): JAY URBAN MD, PhD FIELD APPLICATION ENGINEER: Anali Dominguez MD REFERRING MEDICAL RECORD RETRIEVAL SPECIALIST: Niru Harrison MD PRE-PROCEDURE DIAGNOSIS/INDICATION(S): paroxysmal atrialfibrillation/flutter and tachy-roman syndrome POST-PROCEDURE DIAGNOSIS: same PROCEDURE(S) PERFORMED: 1. Implantation of a permanent transvenous dualchamber pacemaker system ANESTHESIA: local and monitored anesthesia care INTRAVENOUS CONTRAST: 10 mL Omnipaque FLUOROSCOPY TIME & DOSE: 13.2 minutes, 119 Gycm2 ESTIMATED BLOOD LOSS: 15 mL COMPLICATIONS: none immediate IMPLANTED HARDWARE and FINAL LEAD PARAMETERS: Pulse generator: 1. Medtronic [place] XT DR MRI Model #W1DR01, Serial # [id number] Atrial lead 1. Medtronic CapsureFix Model# 5076-45 cm Serial# [id number] ? ? Bipolar, steroid-tipped, active-fixation IS-1 lead ? ? Access: Right Axillary vein ? ? Location Right atrial appendage ? ? F wave, pacemaker: 0.6 mV ? ? Pacing threshold, pacemaker: N/A (pt in atrial flutter) ? ? Impedance, pacemaker: 437 Ohms ? ? Diaphragmatic Stim. @ 8V: No Ventricular electrode: [employer] Model# 5076-52 cm Serial# [id number] ? ? Bipolar, steroid-tipped, active-fixation IS-1 lead [...] fluoroscopic guidance usingmodified Seldinger micropuncture technique. A [place] wire was advanced tothe right atrium under fluoroscopic guidance. Over the guide wire, a 9-Egyptian long peel-away Safe-sheath was insertedinto the vein. [...] Over the retained guide wire, a 7 Egyptian peel-away Safe-sheath wasinserted into the vein and [...] and participated in this procedure as theprimary belt machine operator. The patient's spouse Mara was [...] O RDERABLES [facility] [place] [address] * ECHO COMPLETE (01/31/2022 8:29 AM EDT) EF 46 HEARTLAB SYSTEM Anatomical Region Laterality Modality Cardiac Other 01/31/2022 7:24 AM EDT Narrative 01/31/2022 9:05 AM EDT ? Echocardiogram Report Name: ETHEL AKINS ?Study Date: 01/31/2022 07:24 AMBP: 118/95 mmHg ? Patient Location: [facility] C453 A : 1950 ? Height: 180 cm ? Account: [id number] Age: 71 yrs ? Weight: 100 kg Gender: Male ?BSA: 2.2 m2 Ordering Physician: NIRU HARRISON Referring Physician: NICOLÁS REAGAN Performed By: Monster Abraham RDCS Reason For Study: Arrhythmia Exam Location: [facility]. Interpretation Summary Left ventricle is of normal [...] function, the estimated PASP has increased. Procedure Complete-34077. Satisfactory quality. The rhythm is atrial fibrillation. [...] - 01/31/2022 Echocardiogram Report Name: ETHEL AKINS Patricia Study Date: 207:24 AMBP: 118/95 mmHg Patient Location: [address] : 1950 Height: 180 cm Account: [id number] Age: 71 yrs Weight: 100 kg Gender: Male BSA: 2.2 m2 Ordering Physician: NIRU HARRISON Referring Physician: NICOLÁS REAGAN Performed By: Monster Abraham RDCS Reason For Study: Arrhythmia Exam Location: [facility]. Interpretation Summary Left ventricle is of normal [...] systolic function, the estimated PASP hasincreased. Procedure Complete-67790. Satisfactory quality. The rhythm is atrial fibrillation. [...] Ellis MD CHEMISTRY ORDERABLES Performing Organization Address City/[facility]/ZIP Co de Phone Number [facility] [place] [id number] * Magnesium (01/31/2022 8:16 AM EDT) Magnesium 0.82 0.69 - 1.07 mmol/L [facility] Blood 01/31/2022 8:16 AM EDT 01/31/2022 8:38 AM EDT Narrative Resulting Agency Comment Spec In Lab Misael Ellis MD CHEMISTRY ORDERABLES Performing Organization Address City/[facility]/ZIP Co de Phone Number [facility] [place] [address] * (ABNORMAL) Basic Metabolic Panel (non-fasting) (01/31/2022 8:16 AM EDT) Glucose 137 65 - 199 mg/dL [facility] [...] CHEMISTRY ORDERABLES [facility] [place] [address] * Tacrolimus level (01/31/2022 8:16 AM EDT) [...] Ellis MD CHEMISTRY ORDERABLES Performing Organization Address [facility] de Phone Number [facility] [place] [address] * POCT Glucose (01/31/2022 8:07 AM EDT) Glucose, POC 137 65 - 199 mg/dL [facility] Comment: Supplemental ranges: <140 mg/dL before meals <180 mg/dL all other times of the day Blood 01/31/2022 8:07 AM EDT 01/31/2022 8:07 AM EDT Misael Ellis MD POINT OF CARE TEST O RDERABLES Performing Organization Address [facility] Phone Number [facility] [place] [address] * (ABNORMAL) Urinalysis Microscopic Exam (01/31/2022 1:30 AM EDT) RBC, Urine 4(H) 0 - 3 /HPF [facility] WBC, Urine 1 0 - 3 /HPF [facility] Squamous Epithelial Cells Raw Data, Urine 1 <=4 /HPF [facility] Hyaline Casts, Urine 2 0 - 2 /LPF [facility] Clean Catch Urine 01/31/2022 1:30 AM EDT 01/31/2022 1:42 AM EDT Narrative Resulting Agency Comment Spec In Lab Les Garcia MD URINE ORDERABL ES Performing Organization Address [facility] Co de Phone Number [facility] [place] [address] * Sodium, urine, random (01/31/2022 1:30 AM EDT) Sodium, Urine <20 mmol/L [facility] Urine 01/31/2022 1:30 AM EDT 01/31/2022 1:41 AM EDT Narrative Resulting Agency Comment Spec In Lab Misael Ellis MD URINE ORDERABLES Performing Organization Address City/[facility]/ZIP Co de Phone Number [facility] [place] [address] * Creatinine, urine, random (01/31/2022 1:30 AM EDT) Creatinine, Urine 173 mg/dL [facility] Urine 01/31/2022 1:30 AM EDT 01/31/2022 1:41 AM EDT Narrative Resulting Agency Comment Spec In Lab Misael Ellis MD URINE ORDERABLES Performing Organization Address [facility] Co de Phone Number [facility] [place] [address] * (ABNORMAL) Urinalysis with reflex Culture (01/31/2022 [...] HOSPITAL LABORATORY Leukocytes, Urine Dipstick Negative Negative [facility] Appearance, Urine Dipstick Clear Clear [facility] Specific [place] Urine Automated 1.021 1.005 - 1.030 [facility] Color, Urine Dipstick Yellow Yellow [facility] Reflex to Culture No [facility] Clean Catch Urine 01/31/2022 1:30 AM EDT 01/31/2022 1:42 AM EDT Narrative Resulting Agency Comment Spec In Lab Misael Ellis MD URINE ORDERABLES Performing Organization Address [facility] Co de Phone Number [facility] [place] [address] * POCT Glucose (01/31/2022 12:06 AM EDT) Glucose, POC 116 65 - 199 mg/dL [facility] Comment: Supplemental ranges: <140 mg/dL before meals <180 mg/dL all other times of the day Blood 01/31/2022 12:0 6 AM EDT 01/31/2022 12:06 AM EDT Misael Ellis MD POINT OF CARE TEST O RDERABLES Performing Organization Address [facility] Phone Number [facility] [place] [address] * (ABNORMAL) Hemoglobin A1c (01/30/2022 9:45 PM [...] Mellitus, Diabetes Care 2013; 36: Suppl. 1, K62-56 Estimated Average Glucose See note mg/dL [facility] [...] into estimated average glucose values. ??Diabetes Care 2008:31(8):3865-6651. Blood Venous Draw / Unknown 01/30/2022 9:45 PM EDT 01/30/2022 11:41 PM EDT Narrative Resulting Agency Comment Spec In Lab Les Garcia MD CHEMISTRY ROCHELLE JENNINGS [facility] [place] [address] * (ABNORMAL) Differential, Automated (01/30/2022 9:45 PM EDT) Neutrophil % 63.5 % [facility] Neutrophil Absolute 5.52 1.70 - 6.10 x10(3)/mc L [facility] Lymph % 24.1 % [facility] Lymphocytes Abs 2.1 0.9 - 3.2 x10(3)/mc L [facility] Monocyte % 6.0 % [facility] Monocyte Abs 0.5 0.3 - 0.9 x10(3)/[facility] LABORATORY Eos % 5.4 % [facility] Eosinophils Abs 0.5(H) 0.0 - 0.4 x10(3)/[facility] LABORATORY Basophil % 0.8 % [facility] Baso Absolute 0.1 0.0 - 0.1 x10(3)/[facility] LABORATORY Immature Gran % 0.20 % [facility] Comment: Immature granulocytes(IG's)percentage and absolute count will include metamyelocytes, myelocytes, and promyelocytes. Blood smears from CBCs yielding IG's will be scanned manually for concordance. If this scan disagrees with the automated IG or if promyelocytes are noted, a manual differential will be performed. Immature Gran Absolute 0.02 0.00 - 0.04 x10(3)/[facility] LABORATORY Blood 01/30/2022 9:45 PM EDT 01/30/2022 9:45 PM EDT Narrative Resulting Agency Comment Spec In Lab Les Garcia MD HEMATOLOGY ORD ERABLES [facility] [place] [address] * Hemogram (01/30/2022 9:45 PM EDT) White Blood Cell 8.7 4.0 - 9.5 x10(3)/[facility] LABORATORY Red Blood Cell 4.62 4.58 - 5.54 x10(6)/[facility] LABORATORY Hemoglobin 14.3 13.7 - 16.5 g/dL [...] HOSPITAL LABORATORY Platelet 219 145 - 357 x10(3)/[facility] LABORATORY RDW Standard Deviation 42.4 36.0 - 45.0 fL [facility] RDW coefficient of variation 13.0 11.4 - 13.8 % [facility] Mean Platelet Volume 9.8 7.6 - 12.9 fL [facility] NRBC% auto 0.0 % [facility] NRBC Absolute 0.000 0.000 - 0.000 x10(3)/[facility] LABORATORY Blood 01/30/2022 9:45 PM EDT 01/30/2022 9:45 PM EDT Narrative Resulting Agency Comment Spec In Lab Les Garcia MD HEMATOLOGY ORD ERABLES [facility] [place] [address] * Lipid Panel (Reflex Direct LDL) (01/30/2022 9:45 PM EDT) Cholesterol, Total 65 mg/dL [facility] Comment: Lower Risk: <200 mg/dL Average Risk: 200-239 mg/dL Higher Risk: >wk=133 mg/dL Triglyceride 124 mg/dL [facility] Comment: Average Risk/Lower Risk: <150 mg/dL Borderline High Risk: 150-199 mg/dL High Risk: 200-499 mg/dL Very High Risk: >bs=325 mg/dL HDL Cholesterol 33 mg/dL [facility] Comment: Males: ?? Higher Risk: <40 mg/dL Females: ?? Higher Risk: <50 mg/dL LDL Cholesterol 7 mg/dL [facility] Comment: Lowest Risk: <100 mg/dL Lower Risk: 100-129 mg/dL Borderline High Risk: 130-159 mg/dL High Risk: 160-189 mg/dL Very High Risk: >df=014 mg/dL Cholesterol/HDL Ratio 2.0 ratio [facility] Lipid Interpretation See Note [facility] Comment: Lipid management should be guided by a patient? s ASCVD risk, goals and preferences. ACC/AHA Guidelines recommend high intensity statin if clinical ASCVD or LDL greater than or equal to 190 mg/dL. http://[employer].com/VFH-GIX-Swgrsbwuz Adults aged 40-75 with LDL 70-189 mg/dL should have their 10 year ASCVD risk estimated with the ACC/AHA ASCVD risk tow mate http://tools.acc.org/LRRWN-Jtqs-Logfqhgap/ Statin should be discussed if risk greater [...] CHEMISTRY ORDERABLES [facility] [place] [address] * (ABNORMAL) APTT (01/30/2022 9:45 PM EDT) [...] MD HEMATOLOGY ORDERABLE S Performing Organization Address [facility] Co de Phone Number [facility] [place] [address] * (ABNORMAL) Prothrombin Time (01/30/2022 9:45 PM [...] MD HEMATOLOGY ORDERABLE S Performing Organization Address [facility] Co de Phone Number [facility] [place] [address] * (ABNORMAL) Hepatic Function Panel (01/30/2022 9:45 PM EDT) Pathologist [facility] Protein, Total 6.2 6.1 - 8.0 g/dL [...] Harrison MD CHEMISTRY ORDERABLES Performing Organization Address City/[facility]/ZIP Co de Phone Number [facility] [place] [address] * (ABNORMAL) pro-Brain Natriuretic Peptide (01/30/2022 9:45 PM EDT) NT-proBNP 4,113(H) <=124 pg/mL [facility] Blood 01/30/2022 9:45 PM EDT 01/30/2022 9:45 PM EDT Narrative Resulting Agency Comment Spec In Lab Niru Harrison MD CHEMISTRY ORDERABLES Performing Organization Address [facility] Co de Phone Number [facility] [place] [address] * TSH (01/30/2022 9:45 PM EDT) Thyroid Stimulating Hormone 3.44 0.27 - 4.20 mcIU/mL [facility] Comment: Reference Interval (mcIU/mL): Females: ??First Trimester: 0.23-3.88 ??Second Trimester: 0.22-3.90 ??Third Trimester: 0.44-4.66 Blood 01/30/2022 9:45 PM EDT 01/30/2022 9:45 PM EDT Narrative Resulting Agency Comment Spec In Lab Niru Harrison MD CHEMISTRY ORDERABLES Performing Organization Address City/[facility]/ZIP Co de Phone Number [facility] [place] [address] * Phosphorus (01/30/2022 9:45 PM EDT) Phosphorus 3.3 2.5 - 4.5 mg/dL [facility] Blood 01/30/2022 9:45 PM EDT 01/30/2022 9:45 PM EDT Narrative Resulting Agency Comment Spec In Lab Niru Harrison MD CHEMISTRY ORDERABLES Performing Organization Address City/[facility]/ZIP Co de Phone Number [facility] [place] [address] * (ABNORMAL) Magnesium (01/30/2022 9:45 PM EDT) Magnesium 0.68(L) 0.69 - 1.07 mmol/L [facility] Blood 01/30/2022 9:45 PM EDT 01/30/2022 9:45 PM EDT Narrative Resulting Agency Comment Spec In Lab Niru Harrison MD CHEMISTRY ORDERABLES Performing Organization Address [facility] Co de Phone Number [facility] [place] [address] * (ABNORMAL) Basic Metabolic Panel (non-fasting) (01/30/2022 9:45 PM EDT) Pathologist [facility] Glucose 177 65 - 199 mg/dL [facility] [...] CHEMISTRY ORDERABLES [facility] [place] [address] * EKG 12 Lead (01/30/2022 7:53 PM EDT) Ventricular rate 95 BPM MUSE SYSTEM Atrial Rate 277 BPM MUSE SYSTEM QRS Duration 108 ms MUSE SYSTEM Q-T Interval 398 ms MUSE SYSTEM QTC Calculated (Bezet) 500 ms MUSE SYSTEM Calculated R [place] -58 degrees MUSE SYSTEM Calculated T [place] 72 degrees MUSE SYSTEM INTERPRETATION Atrial flutter with variable A-V block with premature ventricular or aberrantly conducted complexes Left anterior fascicular block Minimal voltage criteria for LVH, may be normal variant ( [place] product ) Prolonged QTc Abnormal ECG When compared with ECG of 14-MAR-2021 15:13, Atrial flutter has replaced Sinus rhythm Vent. rate has increased BY ??35 BPM qtc has lengthened Confirmed by MD Kelly Danette ([id number]) on 01/31/2022 4:01:28 PM MUSE SYSTEM 01/30/2022 7:53 PM EDT 01/31/2022 4:01 PM EDT Niru Harrison MD ECG ORDERABLES Performing Organization Address City/[facility]/ZIP Co de Phone Number MUSE SYSTEM documented [...] Laura 01/30/22 at 2045, Until Discontinued, Routine Given 02/01/2022 8:36 AM EDT 81 mg Given 01/31/2022 8:41 AM EDT 81 mg Given 01/30/2022 9:05 PM EDT 81 mg atorvastatin (Lipitor) tablet 40 mg 40 mg, Oral, EVERY EVENING, First dose on Laura 01/30/22 at 2030, Until Discontinued, Routine Given 01/31/2022 [...] Discontinued, Routine 0841 (Given - Provider: Sigrid Moss RN)1117 ([facility] Hold - Provider: Admin Adt - Reason: Transfer to a Procedural area)1403 ([facility] Unhold - Provider: Admin Adt) 0836 (Given - Provider: Richard Lobo, RN) aspirin EC tablet 81 mg 81 mg, Oral, DAILY, First dose (after last modification) on Thu01/30/22 at 2044, Until Discontinued, Routine 2104 (Given - Provider: Carmela Alicia, JADEN) 0841 (Given - Provider: Sigrid Moss RN)1117 ([facility] Hold - Provider: Admin Adt - Reason: Transfer to a Procedural area)1403 ([facility] Unhold - Provider: Admin Adt) 0836 (Given - Provider: Richard Lobo, JADEN) atorvastatin (Lipitor) tablet 40 mg 40 mg, Oral, EVERY EVENING, First dose on Thu01/30/22 at 2030, Until Discontinued, Routine 2058 (Given - Provider: Carmela Alicia, RN) 1117 ([facility] Hold - Provider: Admin Adt - Reason: Transfer to a Procedural area)1403 ([facility] Unhold - Provider: Admin Adt)1702 (Given - Provider: Sigrid Moss RN) BUpivacaine (pf) (Marcaine) (5 mg/mL) 0.5% injection 150 mg (COMPLETED) 150 mg (30 mL), Subcutaneous, ONCE, 1 dose, On Thu01/31/22 at 1130, EP (Intra-Procedure), Routine 1207 (Given - Provider: Steffen Mora RN) calciTRIoL (Rocaltrol) capsule 0.5 mcg 0.5 mcg, Oral, DAILY, First dose on Thu01/31/22 at 0900, Until Discontinued, Routine 0841 (Given - Provider: Sigrid Moss RN)111 ([facility] Hold - Provider: Admin Adt - Reason: Transfer to a Procedural area)140 ([facility] Unhold - Provider: Admin Adt) 0835 [...] Carmela Alicia RN) 0840 (Given - Provider: Sigrid Moss RN)1117 ([facility] Hold - Provider: Admin Adt - Reason: Transfer to a Procedural area)1403 ([facility] Unhold - Provider: Admin Adt)205 (Given - Provider: Sreedhar Arambula RN) 0835 (Given - Provider: Richard Lobo RN) insulin glargine-ygfn (Semglee) (100 unit/mL) subcutaneous injection [...] Provider: Sigrid Moss RN - Reason: NPO)1403 ([facility] Unhold [...] 0503 (Given - Provider: Carmela Alicia RN)1117 ([facility] Hold - Provider: Admin Adt - [...] Carmela Alicia, RN)0205 (Stopped - Provider: Carmela Alicia, JADEN) metoprolol (LOPRESSOR) injection 5 mg 5 mg, Intravenous, ONCE, 1 dose, On Thu01/31/22 at 1645 1645 (Hold - Provider: Sigrid Moss RN - Reason: See comment - Comment: given prior at 15.45) metoprolol tartrate (Lopressor) tablet 12.5 mg 12.5 mg, Oral, EVERY 6 HOURS SCHEDULED, First dose on Thu01/31/22 at 1800, Until Discontinued, Hold for SBP <90, Routine 1747 (Given - Provider: Sigrid Moss RN)2349 (Given - Provider: Sreedhar Arambula RN) 0557 (Given - Provider: Sreedhar Arambula RN)1132 (Given - Provider: Richard Lobo, JADEN) mycophenolate (Cellcept) capsule 250 mg 250 mg, Oral, 2 TIMES DAILY, First dose on Thu01/30/22 at 2100, Until Discontinued, DO NOT CRUSH OR OPEN, Routine 2057 (Given - Provider: Carmela Alicia RN) 0841 (Given - Provider: Sigrid Moss RN)1117 ([facility] Hold - Provider: Admin Adt - Reason: Transfer to a Procedural area)1403 ([facility] Unhold - Provider: Admin Adt)2052 (Given - Provider: Sreedhar Arambula RN) 0836 (Given - Provider: Richard Lobo, JADEN) potassium chloride ER (K-Dur/Klor-Con) tablet 40 mEq (COMPLETED) 40 mEq, Oral, EVERY 4 HOURS, 2 doses, First dose on Thu01/31/22 at 0000, Last dose on Thu01/31/22 at 0400, 20 mEq tablet may be dissolved in water for administration, Routine 0006 (Given - Provider: Carmela Alicia, JADEN)0502 (Given - Provider: Carmela Alicia RN) sodium chloride 0.9 % (flush) (BD PosiFlush Normal Saline 0.9) flush 5 mL 5 mL, Intravenous, 2 TIMES DAILY, First dose on Thu01/30/22 at 2100, Until Discontinued, Routine 2058 (Given - Provider: Carmela Alicia RN) 0842 (Given - Provider: Sigrid Moss RN)111 ([facility] Hold - Provider: Admin Adt - Reason: Transfer to a Procedural area)1403 ([facility] Unhold - Provider: Admin Adt)2054 (Given - Provider: Sreedhar Arambula RN) 0841 (Given - Provider: Richard [...] - Reason: Transfer to a Procedural area)140 ([facility] Unhold - Provider: Admin Adt)2052 (Given - Provider: Sreedhar Arambula RN) tacrolimus (Prograf) capsule 2 mg 2 mg, Oral, DAILY, First dose on Thu01/31/22 at 0900, Until Discontinued, DO NOT SPLIT, CRUSH OR OPEN, Routine 0840 (Given - Provider: Sigrid Moss RN)111 ([facility] Hold - Provider: Admin Adt - Reason: Transfer to a Procedural area)1403 ([facility] Unhold - Provider: Admin Adt) 0836 (Given - Provider: Richard Lobo RN) tamsulosin (Flomax) capsule 0.4 mg 0.4 mg, Oral, DAILY, First dose on Thu01/31/22 at 0900, Until Discontinued, DO NOT CRUSH OR OPEN, Routine 0841 (Given - Provider: Sigrid Moss RN)111 ([facility] Hold - Provider: Admin Adt - Reason: Transfer to a Procedural area)1403 ([facility] Unhold - Provider: Admin Adt) 0836 (Given [...] Unit), Routine 1702 (Given - Provider: Sigrid Moss RN)2349 (Given - Provider: Sreedhar Arambula, RN) 0556 (Given - Provider: Sreedhar Arambula, JADEN)1316 (Given - Provider: Richard Lobo RN) dextrose [...] the duration of the active insulin. 1117 ([facility] Hold - Provider: Admin Adt - Reason: Transfer to a Procedural area)1403 ([facility] Unhold - Provider: Admin Adt) fentaNYL (PF) (50 mcg/mL) injection 25-50 mcg (CANCELED) 25-50 mcg, Intravenous, EVERY 5 MIN PRN, Starting on Thu01/31/22 at 1044, Until Thu01/31/22 at 1416, Pain, As needed to induce or maintain moderate sedation per [facility] Moderate Sedation Policy for the duration of the EP procedure., As needed to induce or maintain moderate sedation per [facility] Moderate Sedation Policy for the duration of [...] Mora, JADEN)1204 (Given - Provider: Steffen Mora, RN)1216 (Given - Provider: Steffen Mora, JADEN)1222 (Given - Provider: Steffen Mora, JADEN)1241 (Given - Provider: Steffen Mora, JADEN) glucagon (Glucagen) (1 mg/mL) injection solution 1 [...] - Reason: Transfer to a Procedural area)1403 ([facility] Unhold - Provider: Admin Adt) glucose (Glutose) [...] of tube = 37.5 grams.), Routine 1117 ([facility] Hold - Provider: Admin Adt - Reason: Transfer to a Procedural area)1403 ([facility] Unhold - Provider: Admin Adt) iohexoL (Omnipaque) [...] for discomfort with PIV insertion, Routine 1117 ([facility] Hold - Provider: Admin Adt - Reason: Transfer to a Procedural area)1403 ([facility] Unhold - Provider: Admin Adt) magnesium sulfate 2 g in sterile water 50 mL infusion(Linked Group 3) 2 g, Intravenous, EVERY 2 HOURS PRN, Starting on Thu01/31/22 at 0704, Until 02/01/22 at 1812, Administer over 120 Minutes, Hypomagnesemia, Administer one 2 g IV bag, over 120 minutes for serum magnesium of 0.65 - 0.79 mMol/L. 1117 ([facility] Hold - Provider: Admin Adt - Reason: Transfer to a Procedural area)1403 ([facility] Unhold - Provider: Admin Adt) magnesium sulfate 2 g in sterile water 50 mL infusion(Linked Group 3) 2 g, Intravenous, EVERY 2 HOURS PRN, Starting on Thu01/31/22 at 0704, Until 02/01/22 at 1812, Administer over 120 Minutes, Hypomagnesemia, Administer two 2 g IV bag, each over 120 minutes for serum magnesium of 0.5 - 0.64 mMol/L. 1117 ([facility] Hold - Provider: Admin Adt - Reason: Transfer to a Procedural area)1403 ([facility] Unhold - Provider: Admin Adt) metoprolol (LOPRESSOR) [...] to induce or maintain moderate sedation per [facility] Moderate Sedation Policy for the duration of the EP procedure., As needed to induce or maintain moderate sedation per [facility] Moderate Sedation Policy for the duration of [...] Mora, JADEN)1222 (Given - Provider: Steffen Mora, RN)1241 (Given - Provider: Steffen Mora, JADEN) nitroGLYcerin [...] last 24 to 72 hours., Routine 1117 ([facility] Hold - Provider: Admin Adt - Reason: Transfer to a Procedural area)1403 ([facility] Unhold - Provider: Admin Adt) sodium chloride 0.9 % (flush) (BD PosiFlush Normal Saline 0.9) flush 5-20 mL 5-20 mL, Intravenous, EVERY 1 MIN PRN, Starting on Laura 01/30/22 at 1938, Until 02/01/22 at 1812, flush, Flush pertains to all indwelling lines. Flush per protocol found in the job aid using the link provided on this medication record., Routine 1117 ([facility] Hold - Provider: Admin Adt - Reason: Transfer to a Procedural area)1403 ([facility] Unhold - Provider: Admin Adt) sodium chloride 0.9 % (flush) (BD PosiFlush Normal Saline 0.9) flush 5-20 mL 5-20 mL, Intravenous, EVERY 1 MIN PRN, Starting on 01/31/22 at 1416, Until 02/01/22 at 1812, flush, [...] Buccal, EVERY 30 MIN PRN, Starting on Thu01/30/22 at 2317, Until 02/01/22 at 1812, Low [...] mMol/L. documented in this encounter Care Teams Paper Making Machine Operator Relationship Specialty Start Date End Date Urbano Denis DO [address] [place] [address] [address] [facility] [address] [place] [address] PCP - General 09/03/12 03/17/22 Ruchi Valles RN Nurse Clinic Transplant Surgery 07/30/15 documented as of this encounter
--- OUTSIDE RECORDS SUMMARY | 2024-04-04 13:55 | XMS_ITS | Encounter Summary ---
[place] [address] Care Team Providers Care Bitumastic Applier Name Role Phone Urbano Denis DO Primary Care Provider + [phone] Reason for Referral * Consultation (Routine) - Closed Specialty Diagnoses / Procedures Referred By Contact Referred To Contact Electrophysiology / Cardiology Diagnoses Tachy-sakina syndrome Tachy-sakina syndrome Leela Acosta MD [facility] [place] [address] [facility] Cardiology [address] [place] [phone] Referral ID Status Reason Start Date Expiration Date V isits Requested Visits Authorized [id number] Closed Consult, Test & Treat 02/04/2022 02/04/2023 1 1 Encounter Details Date Type Department Care Team (Late st Contact Info) Description 02/04/2022 [place] [phone] Leela Acosta MD [facility] [place] [address] Tachy-sakina syndrome (Primary Dx) Social History Tobacco [...] PM EDT Office Visit Cardiology at [address] [phone] Jay Urban MD [facility] [place] [address] 04/15/2024 10:00 AM EDT Hospital Encounter [place] [phone] Arrived Scheduled Referrals Name Type Priority Associated Diagnoses Order Schedule Referral to Cardiac Electrophysiology Outpatient Referral Routine Tachy-sakina syndrome Ordered: 02/04/2022 documented as of this encounter Goals Goal Patient Goal Type Associated Problems Recent Progress Patient-Stated? Author [facility] Medication Compliance and Understanding Patient Facing Action Plan On track( 017 10:41 AM EDT) No Selena Cisneros, [facility] Note: Patient Goal: Clear hepatitis C Timeframe to meet goal: within 12 weeks of therapy documented as of this encounter Visit Diagnoses Diagnosis Tachy-sakina syndrome- Primary Sinoatrial node dysfunction documented in this encounter Care Teams Bitumastic Applier Relationship Specialty Start Date End Date Urbano Denis DO [address] [place] [address] PCP - General 09/03/12 03/17/22 Ruchi Valles RN Nurse Clinic Transplant Surgery 07/30/15 documented as of this encounter
--- OUTSIDE RECORDS SUMMARY | 2024-04-04 13:55 | XMS_ITS | Encounter Summary ---
Author Organization [facility] [place] [address] Care Team Providers Care Silk Screen Cutter Name Role Phone Adeel Urbano KIRBY Primary Care Provider Encounter Details Date Type Department Care Team (Late st Contact Info) Description 02/16/2022 External [place] [phone] Social History Tobacco Use Types [...] PM EDT Office Visit Cardiology at [address] [phone] Jay Urban MD [facility] [place] [address] 04/15/2024 10:00 AM EDT Hospital Encounter Non-[place] [phone] Arrived documented as of this [...] * Scan Doc: ECG (02/16/2022) Historical Provider MEDIA MGR SCAN EX T ORDR/RSLT documented in this encounter Visit Diagnoses Not on filedocumented in this encounter Care Teams Silk Screen Cutter Relationship Specialty Start Date End Date Urbano Denis DO [address] [place] [address] PCP - General 09/03/12 03/17/22 Ruchi Valles RN Nurse Clinic Transplant Surgery 07/30/15 documented as of this encounter
--- OUTSIDE RECORDS SUMMARY | 2024-04-04 13:55 | XMS_ITS | Encounter Summary ---
[place] [address] Care Team Providers Care Sandwich Wrapper Name Role Phone Urbano Denis DO Primary Care Provider Encounter Details Date Type Department Care Team (Late st Contact Info) Description 02/04/2022 Telephone Cardiology at [address] [phone] Marisela Bob, RN Social History Tobacco Use [...] 1:40 PM EDT Office Visit Cardiology at [address] [phone] Jay Urban MD [facility] [place] [address] 04/15/2024 10:00 AM EDT Hospital Encounter [place] [phone] Arrived documented as of this encounter Goals [...] on filedocumented in this encounter Care Teams Sandwich Wrapper Relationship Specialty Start Date End Date Urbano Denis DO [address] [place] [address] PCP - General 09/03/12 03/17/22 Ruchi Valles RN Nurse Clinic Transplant Surgery 07/30/15 documented as of this encounter
--- OUTSIDE RECORDS SUMMARY | 2024-04-04 13:55 | XMS_ITS | Encounter Summary ---
Author Organization [facility] Address [facility] [place] [address] Care Team Providers Care Manager Inventory Management Name Role Phone Adeel Urbano KIRBY Primary Care Provider + [phone] Encounter Details Date Type Department Care Team (Late st Contact Info) Description 02/03/2022 Notes Only Cardiology at [address] [place] [phone] Niru Reyes MD [facility] [place] [address] Social History Tobacco Use Types Packs/Day Years [...] PM EDT Office Visit Cardiology at [address] [phone] Jay Urban MD [facility] [place] [address] 04/15/2024 10:00 AM EDT Hospital Encounter Non-Invasive [place] [phone] Arrived documented as of this encounter Goals [...] filedocumented in this encounter Care Teams Manager Inventory Management Relationship Specialty Start Date End Date Urbano Denis DO [address] [place] [address] PCP - General 09/03/12 03/17/22 Ruchi Valles RN Nurse Clinic Transplant Surgery 07/30/15 documented as of this encounter
--- OUTSIDE RECORDS SUMMARY | 2024-04-04 13:55 | XMS_ITS | Encounter Summary ---
Author Organization [facility] [place] [address] Care Team Providers Care Manager E [employer] Name Role Phone Urbano Jimenez DO Primary Care Provider [phone] Encounter Details Date Type Department Care Team (Latest Contact Info) Description 03/18/2022 10:25 AM EDT Laboratory Appointment Lab [address] [place] [phone] H/O kidney transplant; Vitamin D deficiency; halfway current use of immunosuppressive drug Social History [...] PM EDT Office Visit Cardiology at [address] [phone] Jay Urban MD [facility] [place] [address] 04/15/2024 10:00 AM EDT Hospital Encounter Non-[place] [address] Arrived documented as of this encounter Goals [...] EDT H/O kidney transplant Vitamin D deficiency halfway current use of immunosuppressive drug PROTEIN/CREATININE RATIO, URINE Routine 03/18/2022 11:01 AM EDT HC PHOSPHORUS, URINE Routine 03/18/2022 11:01 AM EDT 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 HC MAGNESIUM, URINE Routine 03/18/2022 1 1:01 AM EDT H/O kidney transplant Vitamin D deficiency halfway current use of immunosuppressive drug URINALYSIS WITH REFLEX CULTURE Routine 03/18/2022 11:01 AM EDT COVID-19 SPIKE ANTIBODY Routine 03/18/2022 10:58 AM EDT LIPID PANEL (NO REFLEX) Routine 03/18/2022 10:58 AM EDT HC PARATHYROID HORMONE(PTH INTACT Routine 03/18/2022 10:58 AM EDT H/O kidney transplant Vitamin D deficiency halfway current use of immunosuppressive drug HC BK VIRUS QUANT PCR,PLASMA Routine 03/18/2022 10:58 AM EDT 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 Routine 03/18/2022 10:58 AM EDT H/O kidney transplant Vitamin D deficiency halfway current use of immunosuppressive drug HC VITAMIN D TOTAL-25 HYDROXY Routine 03/18/2022 10:58 AM EDT H/O kidney transplant Vitamin D deficiency halfway current use of immunosuppressive drug HC RETIC,AUTO INCLUDES RETHE & IRF Routine 03/18/2022 10:58 AM EDT H/O kidney transplant Vitamin D deficiency halfway current use of immunosuppressive drug URIC ACID Routine 03/18/2022 10:58 AM EDT PHOSPHORUS Routine 03/18/2022 10:58 AM EDT MAGNESIUM Routine 03/18/2022 10:58 AM EDT HC HEMOGLOBIN A1C Routine 03/18/2022 10: 58 AM EDT H/O kidney transplant Vitamin D deficiency halfway current use of immunosuppressive drug CHOLESTEROL, TOTAL Routine 03/18/2022 10 :58 AM EDT COMPREHENSIVE METABOLIC PANEL Routine 03/18/2022 10:58 AM EDT documented in this encounter Results * Urinalysis Microscopic Exam (03/18/2022 11:01 AM EDT) RBC, Urine 2 0 - 3 /HPF [facility] WBC, Urine 1 0 - 3 /HPF [facility] Urine Urine / Unknown 03/18/2022 1 1:01 AM EDT 03/18/2022 11:08 AM EDT Narrative Resulting Agency Comment Spec In Lab Tal Eagle MD URINE ORDERABLES [facility] [place] [address] * (ABNORMAL) Protein/Creatinine Ratio, urine (03/18/2022 11:01 AM EDT) Creatinine, Urine 146 mg/dL [facility] Protein, Urine 54(H) 0 - 12 mg/dL [facility] Protein / Creatinine Ratio, Urine 0.4 ratio [facility] Urine Urine / Unknown 03/18/2022 1 1:01 AM EDT 03/18/2022 11:20 AM EDT Narrative Resulting Agency Comment Spec In Lab Tal Eagle MD URINE ORDERABLES [facility] [place] [address] * (ABNORMAL) Urinalysis with reflex Culture (03/18/2022 [...] [facility] pH, Urn (dipstick) 6.5 5.0 - 8.0 [facility] Blood, Urine Dipstick Negative Negative mg/dL [facility] Ketone, Urine Dipstick Trace(A) Negative mg/dL [facility] Nitrite, Urine Dipstick Negative Negative [facility] Leukocytes, Urine Dipstick Negative Negative [facility] Appearance, Urine Dipstick Clear Clear [facility] Specific Mcclelland Urine Automated 1.022 1.005 - 1.030 [facility] Color, Urine Dipstick Dark Yellow Yellow [facility] Reflex to Culture No [facility] Urine Urine / Unknown 03/18/2022 1 1:01 AM EDT 03/18/2022 11:08 AM EDT Narrative Resulting Agency Comment Spec In Lab Tal Eagle MD URINE ORDERABLES Performing Organization Address City/[facility]/ZIP Co de Phone Number [facility] [place] [address] * Calcium Creatinine Ratio, random urine (03/18/2022 11:01 AM EDT) Calcium, Urine 11.9 mg/dL [facility] Creatinine, Urine 145 mg/dL [facility] Calcium / Creatinine Ratio, Urine 0.08 ratio [facility] Urine 03/18/2022 11:0 1 AM EDT 03/18/2022 11:20 AM EDT Narrative Resulting Agency Comment Spec In Lab Tal Eagle MD URINE ORDERABLES Performing Organization Address City/[facility]/ZIP Co de Phone Number [facility] [place] [address] * Magnesium, urine, random (03/18/2022 11:01 AM EDT) Magnesium, Urine 2.28 mmol/L [facility] Urine 03/18/2022 11:0 1 AM EDT 03/18/2022 11:20 AM EDT Narrative Resulting Agency Comment Spec In Lab Tal Eagle MD URINE ORDERABLES Performing Organization Address City/[facility]/ZIP Co de Phone Number [facility] [place] [address] * Phosphorus, urine, random (03/18/2022 11:01 AM EDT) Phosphorus, Urine 26.0 mg/dL [facility] Urine 03/18/2022 11:0 1 AM EDT 03/18/2022 11:20 AM EDT Narrative Resulting Agency Comment Spec In Lab Tal Eagle MD URINE ORDERABLES Performing Organization Address City/[facility]/ZIP Co de Phone Number [facility] [place] [address] * Lavender Tube HOLD (03/18/2022 10:58 AM EDT) Lavender Hold Sample in lab. [facility] Blood Venous Draw / Unknown 03/18/2022 10:58 AM EDT 03/18/2022 11:20 AM EDT Tal Eagle MD HEMATOLOGY ORDERA BLES Performing Organization Address City/[facility]/ZIP Co de Phone Number [facility] [place] [address] * Lavender Tube HOLD (03/18/2022 10:58 AM EDT) Lavender Hold Sample in lab. [facility] Blood Venous Draw / Unknown 03/18/2022 10:58 AM EDT 03/18/2022 11:18 AM EDT aTl Eagle MD HEMATOLOGY ORDERA BLES Performing Organization Address City/[facility]/ZIP Co de Phone Number [facility] [place] [address] * Lavender Tube HOLD (03/18/2022 10:58 AM EDT) Lavender Hold Sample in lab. [facility] Blood Venous Draw / Unknown 03/18/2022 10:58 AM EDT 03/18/2022 11:18 AM EDT Tal Eagle MD HEMATOLOGY ORDERA BLES Performing Organization Address [facility] Co de Phone Number [facility] [place] [address] * Lipid Panel (No Reflex) (03/18/2022 10:58 AM EDT) Cholesterol, Total 81 mg/dL [facility] Comment: Lower Risk: <200 mg/dL Average Risk: 200-239 mg/dL Higher Risk: >zy=272 mg/dL Triglyceride 115 mg/dL [facility] Comment: Average Risk/Lower Risk: <150 mg/dL Borderline High Risk: 150-199 mg/dL High Risk: 200-499 mg/dL Very High Risk: >ch=768 mg/dL HDL Cholesterol 36 mg/dL [facility] Comment: Males: ?? Higher Risk: <40 mg/dL Females: ?? Higher Risk: <50 mg/dL LDL Cholesterol 22 mg/dL [facility] Comment: Lowest Risk: <100 mg/dL Lower Risk: 100-129 mg/dL Borderline High Risk: 130-159 mg/dL High Risk: 160-189 mg/dL Very High Risk: >oe=449 mg/dL Cholesterol/HDL Ratio 2.2 ratio [facility] Lipid Interpretation See Note [facility] Comment: Lipid management should be guided by a patient? s ASCVD risk, goals and preferences. ACC/AHA Guidelines recommend high intensity statin if clinical ASCVD or LDL greater than or equal to 190 mg/dL. http://Un[employer].com/FUC-KAW-Pytfywxvc Adults aged 40-75 with LDL 70-189 mg/dL should have their 10 year ASCVD risk estimated with the ACC/AHA ASCVD risk ship purser http://tools.acc.org/KFELS-Tojx-Bwebzybbr/ Statin should be discussed if risk greater [...] ORDERAB LES [facility] [place] [address] * COVID-19 Jah Antibody (03/18/2022 10:58 AM EDT) SARS-CoV-2 Jah Ab Detected [facility] Comment: This is a total antibody [...] be due to a past infection with rgb-UQVK-IqE-2 coronavirus strains, such as coronavirus HKU1, NL63, OC43, or 229E. This test was performed using the Elecsys Spnp-ALVV-ZoF-2 S total antibody assay on the Kirsten June e801 analyzer. This serology test is available following FDA Emergency Use Authorization, however it has not been reviewed by the FDA, nor is it FDA cleared or approved. The performance characteristics of this test were determined by the Department of Pathology and Laboratory Medicine at [facility]. The laboratory is certified under the Clinical [...] fact sheets at the following FDA website: https://www.fda.gov/medical-devices/weapuuxmxqe-cxyxnxr-0558-jogjr-08-vkboswcfm- use-a cdtbrbzrjwkvj-kyeittv-rosddxy/ttysk-tdwkbpkjpgw-rcak Blood Venous Draw / Unknown 03/18/2022 10:58 AM EDT 03/18/2022 11:13 AM EDT Tal Eagle MD CHEMISTRY ORDERAB LES [facility] [place] [address] * Tacrolimus level (03/18/2022 10:58 AM EDT) Tacrolimus 8.0 ng/mL [facility] [...] City/[facility]/ZIP Co de Phone Number [facility] [place] [address] * Cholesterol, total (03/18/2022 10:58 AM EDT) Pathologist [facility] Cholesterol, Total 81 mg/dL [facility] Comment: Lower Risk: <200 mg/dL Average Risk: 200-239 mg/dL Higher Risk: >si=768 mg/dL Lipid Interpretation See Note [facility] Comment: Lipid management should be guided by a patient? s ASCVD risk, goals and preferences. ACC/AHA Guidelines recommend high intensity statin if clinical ASCVD or LDL greater than or equal to 190 mg/dL. http://[employer].com/XIZ-NJJ-Aogierybg Adults aged 40-75 with LDL 70-189 mg/dL should have their 10 year ASCVD risk estimated with the ACC/AHA ASCVD risk ship purser http://tools.acc.org/BGVOY-Yisc-Cugjyvnqc/ Statin should be discussed if risk greater [...] City/[facility]/ZIP Co de Phone Number [facility] [place] [address] * (ABNORMAL) Comprehensive metabolic panel (non-fasting) (03/18/2022 10:58 AM EDT) Glucose 134 65 - 199 mg/dL [facility] Comment:Diabetes: >=200 mg/d L plus symptoms Blood Urea Nitrogen 22(H) 10 - 20 mg/dL [facility] Creatinine 1.55(H) 0.80 - 1.50 mg/dL [facility] Sodium 142 135 - 145 mmol/L [facility] Potassium 4.5 3.5 - 5.0 mmol/L [facility] Comment: Please note: ??Patients with WBC >100,000 may have falsely elevated Potassium levels. ??For accurate Potassium quantification in these patients send serum separator tube (gold top) for subsequent determinations. ??Contact the Clinical Chemistry Laboratory if there are any questions. Chloride 102 98 - 107 mmol/L [facility] Carbon Dioxide 30 22 - 31 mmol/L [facility] Anion Gap 10 5 - 15 mmol/L [facility] Calcium 10.1 8.5 - 10.5 mg/dL [facility] Protein, Total 6.9 6.1 - 8.0 g/dL [facility] Albumin 4.3 3.2 - 5.2 g/dL [facility] Aspartate Aminotransferase 21 0 - 39 unit/L [facility] Alanine Aminotransferase 24 0 - 55 unit/L [facility] Alkaline Phosphatase 78 40 - 130 unit/L [facility] Bilirubin, Total 3.1(H) 0.2 - 1.3 mg/dL [facility] Est Glomerular Filtration Rate 47(L) >=60 mL/min/1. 73 m?? [facility] ORDERAB LES [facility] [place] [address] * Uric acid (03/18/2022 10:58 AM EDT) Uric Acid 8.1 3.5 - 8.5 mg/dL [facility] Blood Venous Draw / Unknown 03/18/2022 10:58 AM EDT 03/18/2022 11:13 AM EDT Narrative Resulting Agency Comment Spec In Lab Tal Eagle MD CHEMISTRY ORDERAB LES Performing Organization Address City/[facility]/ZIP Co de Phone Number [facility] [place] [address] * Magnesium (03/18/2022 10:58 AM EDT) Magnesium 0.76 0.69 - 1.07 mmol/L [facility] Blood Venous Draw / Unknown 03/18/2022 10:58 AM EDT 03/18/2022 11:13 AM EDT Narrative Resulting Agency Comment Spec In Lab aTl Eagle MD CHEMISTRY ORDERAB LES Performing Organization Address City/[facility]/ZIP Co de Phone Number [facility] [place] [address] * Phosphorus (03/18/2022 10:58 AM EDT) Phosphorus 2.5 2.5 - 4.5 mg/dL [facility] Blood Venous Draw / Unknown 03/18/2022 10:58 AM EDT 03/18/2022 11:13 AM EDT Narrative Resulting Agency Comment Spec In Lab Tal Eagle MD CHEMISTRY ORDERAB LES [facility] [place] [address] * Differential, Automated (03/18/2022 10:58 AM EDT) Neutrophil % 66.2 % [facility] Neutrophil Absolute 5.21 1.70 - 6.10 x10(3)/[facility] Lymph % 20.7 % [facility] Lymphocytes Abs 1.6 0.9 - 3.2 x10(3)/[facility] Monocyte % 8.3 % [facility] Monocyte Abs 0.6 0.3 - 0.9 x10(3)/[facility] Eos % 3.6 % [facility] Eosinophils Abs 0.3 0.0 - 0.4 x10(3)/[facility] Basophil % 0.8 % [facility] Baso Absolute 0.1 0.0 - 0.1 x10(3)/[facility] Immature Gran % 0.40 % [facility] [...] 0.04 x10(3)/[facility] Blood Venous Draw / Unknown 03/18/2022 10:58 AM EDT 03/18/2022 11:13 AM EDT Narrative Resulting Agency Comment Spec In Lab Tal Eagle MD HEMATOLOGY ORDERA BLES [facility] [place] [address] * Hemogram (03/18/2022 10:58 AM EDT) [facility] White Blood Cell 7.9 4.0 - 9.5 x10(3)/[facility] Red Blood Cell 4.83 4.58 - 5.54 x10(6)/[facility] Hemoglobin 14.9 13.7 - 16.5 g/dL [facility] Hematocrit 42.9 40.5 - 48.5 % [facility] Mean Cell Volume 88.8 82.9 - 93.1 [facility] Mean Cell Hemoglobin 30.8 27.5 - 32.1 pg [facility] Mean Cell Hemoglobin Concentration 34.7 32.0 - 35.7 g/dL [facility] Platelet 248 145 - 357 x10(3)/[facility] RDW Standard Deviation 42.1 36.0 - 45.0 [facility] RDW coefficient of variation 13.0 11.4 - 13.8 % [facility] Mean Platelet Volume 9.5 7.6 - 12.9 [facility] NRBC% auto 0.0 % [facility] NRBC Absolute 0.000 0.000 - 0.000 x10(3)/[facility] Blood Venous Draw / Unknown 03/18/2022 10:58 AM EDT 03/18/2022 11:13 AM EDT Narrative Resulting Agency Comment Spec In Lab Tal Eagle MD HEMATOLOGY ORDERA BLES [facility] [place] [address] * (ABNORMAL) Hemoglobin A1c (03/18/2022 10:58 AM EDT) [facility] Hemoglobin A1c 6.6(H) 4.3 - 5.6 % [...] Mellitus, Diabetes Care 2013; 36: Suppl. 1, E17-04 Estimated Average Glucose See note mg/dL [facility] [...] into estimated average glucose values. ??Diabetes Care 2008:31(8):4552-4495. Blood 03/18/2022 10:5 8 AM EDT 03/18/2022 11:17 AM EDT Narrative Resulting Agency Comment Spec In Lab Tal Eagle MD CHEMISTRY ORDERAB LES Performing Organization Address [facility] Co de Phone Number [facility] [place] [address] * Reticulocyte Count (03/18/2022 10:58 AM EDT) Reticulocyte % 1.8 0.7 - 2.6 % [facility] Retic Abs # 0.080 0.030 - 0.120 x10(6)/mcL [facility] Immature Retic% 10.0 0.0 - 15.6 % [facility] Reticulated Hgb 35.2 31.3 - 40.2 pg [facility] Blood 03/18/2022 10:5 8 AM EDT 03/18/2022 11:15 AM EDT Narrative Resulting Agency Comment Spec In Lab Tal Eagle MD HEMATOLOGY ORDERA BLES Performing Organization Address [facility] Co de Phone Number [facility] [place] [address] * PTH (03/18/2022 10:58 AM EDT) Parathyroid Hormone 38 15 - 65 pg/mL [facility] Blood 03/18/2022 10:5 8 AM EDT 03/18/2022 11:17 AM EDT Narrative Resulting Agency Comment Spec In Lab Tal Eagle MD CHEMISTRY ORDERAB LES Performing Organization Address [facility] Co de Phone Number [facility] [place] [address] * Vitamin D, 25-Hydroxy (03/18/2022 10:58 AM EDT) Vitamin D Total 25 OH 39 21 - 100 ng/mL [facility] Vit D Interp Sufficient [facility] Blood 03/18/2022 10:5 8 AM EDT 03/18/2022 11:13 AM EDT Narrative Resulting Agency Comment Spec In Lab Tal Eagle MD CHEMISTRY ORDERAB LES Performing Organization Address [facility]/ZIP Co de Phone Number [facility] [place] [address] * 1,25-dihydroxycholecalciferol (03/18/2022 10:58 AM EDT) Vit D 1,25 Dihydroxy (NOVEMBER) 43 18 - 64 pg/mL [facility] Comment: ADDITIONAL INFORMATION This test was developed and its performance characteristics determined by [facility] in a manner consistent with CLIA requirements. This test has not been cleared or approved by the U.S. Food and Drug Administration. Test Performed by: [facility] - [address] [address] Director Social Welfare: Edinson Garcia M.D. Ph.D.; CLIA# [id number] Blood 03/18/2022 10:5 8 AM EDT 03/18/2022 1:56 PM EDT Narrative Resulting Agency Comment Spec In Lab Tal Eagle MD LAB SEND OUT ORDE RABLES Performing Organization Address [facility] Co de Phone Number [facility] [place] [address] * Gold Tube HOLD (03/18/2022 10:58 AM EDT) [facility] Gold Hold Sample in lab. [facility] Blood 03/18/2022 10:5 8 AM EDT 03/18/2022 11:13 AM EDT Tal Eagle MD CHEMISTRY ORDERAB LES Performing Organization Address [facility]/ZIP Co de Phone Number [facility] [place] [address] * BKV Quant Blood (03/18/2022 10:58 AM EDT) BKV Blood Result Not Detected Not Detected IU/mL [facility] Comment: Indication for Study: Monitoring BKV DNA Analysis: The june BKV test is an in vitro nucleic acid amplification tests using real-time polymerase chain reaction (PCR) assay for the quantitative measurement of BK virus (BKV) DNA in human EDTA plasma. Sample: EDTA plasma Method: june BKV test used with the FID30 platform ([employer]) Linear Range: 21.5 - 1.0 x 10^8 IU/mL (1.33 - 8.00 log IU/mL) Note: The Kirsten june BKV assay has been cleared by the U.S. Food and Drug Administration for clinical testing. Blood 03/18/2022 10:5 8 AM EDT 03/18/2022 12:52 PM EDT Narrative Resulting Agency Comment Spec In Lab Tal Eagle MD MOLECULAR ORDERAB LES Performing Organization Address City/State/[facility] Co de Phone Number [facility] [place] [address] documented in this encounter Visit Diagnoses Diagnosis H/O kidney transplant Kidney replaced by transplant Vitamin D deficiency Unspecified vitamin D deficiency halfway current use of immunosuppressive drug documented in this encounter Care Teams Manager E Commerce Relationship Specialty Start Date End Date Urbano Jimenez DO [address] [place] [address] PCP - General Family Medicine 03/18/22 Ruchi Valles RN Nurse Clinic Transplant Surgery 07/30/15 documented as of this encounter
--- OUTSIDE RECORDS SUMMARY | 2024-04-04 13:55 | XMS_ITS | Encounter Summary ---
Author Organization [facility] [place] [address] Care Team Providers Care Forklift Picker Name Role Phone Adeel Urbano KIRBY Primary Care Provider Encounter Details Date Type Department Care Team (Late st Contact Info) Description 02/18/2022 External [place] [address] Social History Tobacco Use Types [...] 1:40 PM EDT Office Visit Cardiology at [address] [phone] Jay Urban MD [facility] [place] [id number] 04/15/2024 10:00 AM EDT Hospital Encounter Non-Invasive [place] [address] Arrived documented as of [...] on filedocumented in this encounter Care Teams Forklift Picker Relationship Specialty Start Date End Date Urbano Denis DO [address] [place] [address] PCP - General 09/03/12 03/17/22 Ruchi Valles RN Nurse Clinic Transplant Surgery 07/30/15 documented as of this encounter
--- OUTSIDE RECORDS SUMMARY | 2024-04-04 13:55 | XMS_ITS | Encounter Summary ---
Author Organization [facility] Address [facility] [place] [address] Care Team Providers Care Outreach Librarian Name Role Phone Adeel Urbano KIRBY Primary Care Provider [phone] Encounter Details Date Type Department Care Team (Late st Contact Info) Description 02/25/2022 9:30 AM EDT Office Visit Cardiology at [address] [phone] Byron Brown MD [facility] [place] [address] Atrial fibrillation, unspecified type; Atrial fibrillation with [...] Brown MD - 02/25/2022 9:30 AM EDT [facility] [place] [address] CARDIOLOGY/ VASCULAR OUTPATIENT NOTE Cody Bolden Urbano Denis, OFFICE VISIT : From the recent discharge summary: (01/31/2022) This is a 71 year old gentleman, [place] [facility] [place] 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 ??2019 he underwent PCI, also history of basal ganglia bleed. ??Now with atrial fibrillation. ?? He underwent pacemaker implantation (see details below). Note that we did not anticoagulate him as he has history of basal ganglia bleed. His [id number] score is high and I have reached out to his steel tester (Dr. Michael Brown) to have him follow up (attempt at islam of sinus, benefits:risks foranticoagulation, consideration of Watchman Device). From the recent device interrogation (02/12/2022) ?? Heart rate histograms: reasonable distribution ?? Pacing percentages: AP 6.3%; AUTOMATION QTP TESTER 61.5 % ?? 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 He was not feeling well about 2 weeks after the pacemaker - although mostly nonspecific symptoms such as fatigue. He was seen at his local ER at [facility] (02/16/2022) and [facility] (02/18/2022). However, both times he was released after initial evaluation. It is noted that his metoprolol wasincreased and I believe this may have helped with further rate control. He had a follow-up echo as an outpatient at [facility] [place]19[place]. Results are below. Trivial pericardial [...] 3 months or prn Byron Brown MD, [facility] Cardiovascular Medicine [facility] [address] Clinic [phone] Clinic Team Nurse: [phone] The total time associated with this visit was 40 minutes. documented in this encounter Plan of Treatment Upcoming Encounters Date Type Department Care Team (Late st Contact Info) Description 04/08/2024 1:40 PM EDT Office Visit Cardiology at [address] [phone] Jay Urban MD [facility] [place] [address] 04/15/2024 10:00 AM EDT Hospital Encounter [place] [address] Arrived documented as of this [...] (Bezet) 501 ms MUSE SYSTEM Calculated R Peterson -72 degrees MUSE SYSTEM Calculated T Peterson 104 degrees MUSE SYSTEM INTERPRETATION Atrial flutter with intrinsic complexes and ??ventricular- paced complexes Left anterior fascicular block Poor R wave progression Abnormal ECG When compared with ECG of 30-JAN-2022 19:53, ventricular-pa brenda complexes are now present Confirmed by MD Kelly Danette ([id number]) on 02/25/2022 3:30:31 PM MUSE SYSTEM 02/25/2022 9:48 AM EDT 02/25/2022 3:30 PM EDT Byron Brown MD ECG ORDERABLES MUSE SYSTEM documented in this encounter Visit Diagnoses Diagnosis Atrial fibrillation, unspecified type Atrial fibrillation with RVR - had flutter initially, then fib Atrial fibrillation documented in this encounter Care Teams Outreach Librarian Relationship Specialty Start Date End Date Urbano Denis DO [address] [place] [address] [address] [place] [address] PCP - General 09/03/12 03/17/22 Ruchi Valles RN Nurse Clinic Transplant Surgery 07/30/15 documented as of this encounter
--- OUTSIDE RECORDS SUMMARY | 2024-04-04 13:55 | XMS_ITS | Encounter Summary ---
Author Organization [facility] [place] [address] Care Team Providers Care Casing Inspector Name Role Phone Urbano Denis DO Primary Care Provider [phone] Encounter Details Date Type Department Care Team (Late st Contact Info) Description 02/16/2022 [place] [phone] Yash Chang MD [facility] [place] [address] Social History Tobacco Use Types Packs/Day Years [...] Referring provider: Rolando Cole MD Patient location: [facility] Past medical history: Atrial Flutter CAD (PCI [...] from a formal TTE. If discharged from [facility] will attempt to arrange at [facility]. Yash Chang MD 02/16/2022 2:13 PM documented in this encounter Plan of Treatment Upcoming Encounters Date Type Department Care Team (Late st Contact Info) Description 04/08/2024 1:40 PM EDT Office Visit Cardiology at [address] [address] Jay Urban MD [facility] [place] [address] 04/15/2024 10:00 AM EDT Hospital Encounter Non-Invasive [place] [address] Arrived documented as of this encounter Goals Goal Patient Goal Type Associated Problems Recent Progress Patient-Stated? Author [facility] Medication Compliance and Understanding Patient Facing Action Plan On track( 017 10:41 AM EDT) Selena Scott, [facility] Note: Patient Goal: Clear hepatitis C Timeframe to meet goal: within 12 weeks of therapy documented as of this encounter Visit Diagnoses Not on filedocumented in this encounter Care Teams Casing Inspector Relationship Specialty Start Date End Date Urbano Denis DO [address] [place] [address] PCP - General 09/03/12 03/17/22 Ruchi Valles RN Nurse Clinic Transplant Surgery 07/30/15 documented as of this encounter
--- OUTSIDE RECORDS SUMMARY | 2024-04-04 13:55 | XMS_ITS | Encounter Summary ---
[place] [address] Care Team Providers Care Laborer Cutting Tool Name Role Phone Urbano Denis DO Primary Care Provider [phone] Reason for Referral * Diagnostic Test (Routine) - Closed Specialty Diagnoses / Procedures Referred By Humberto flor Referred To Contact Cardiology Diagnoses Tachy-roman syndrome Procedures Echocardiogram Transthoracic Shaq Damon MD [facility] [place] [address] [facility] [place] [address] Referral ID Status Reason Start Date Expiration Date V isits Requested Visits Authorized [id number] Closed Specialty Service Requested 02/19/2022 04/19/2022 1 1 Encounter Details Date Type Department Care Team (Late st Contact Info) Description 02/05/2022 11:00 AM EDT TH Visit (TeleHealth) Cardiology at [address] [address] Shaq Damon MD [facility] [place] [address] Tachy-roman syndrome Social History Tobacco Use Types [...] original note were not included. [facility] [place] [address] CARDIOLOGY/ VASCULAR OUTPATIENT NOTE Ethel Denis, OFFICE [...] sees a local physician, Shannan Colunga, at [facility] for Parkinson's. His walking is somewhat limited due to this. We discussed the issues surrounding anticoagulation. See below. From the recent discharge summary: ?? This is a 71 year old gentleman, followed by cardiology at [facility] (Dr Michael Damon). 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 ??2019 he underwent PCI, also history of basal ganglia bleed. ??Now with atrial fibrillation. ?? He underwent pacemaker implantation (see details below). Note that we did not anticoagulate him as he has history of basal ganglia bleed. His [id number] score is high and I have reached out to his datastage consultant (Dr. Michael Damon) to have him follow up (attempt at synagogue of sinus, benefits:risks foranticoagulation, consideration of Watchman Device). From my prior note (03/2021): 70 year old male ?? S/p kidney transplant in 2016. ? Admitted to [facility] [...] kidney transplant in 2016. ? Admitted to [facility] in January 2019 with newly diagnosed AFlutter and a NSTEMI. ??He underwent cardiac cath and PCI to an OM lesion. ??LVEF was initially 30% (while in AFL with RVR) - but improved over time back to normal (most recent echo 2020 with normal LVEF). Readmitted to [facility] in January 2022 with recurrent AF, presumed [...] occluder) would be a reasonable option for mcc management and the patient is in agreement. We will refer the patient to the structural heart team. ?? Follow-up plan: 3 months with an echo at that time (LVEF ?). Shaq Damon MD, [facility] Cardiovascular Medicine [facility] [address] Clinic [phone] Clinic Team Nurse: [phone] The total time associated with this visit was 30 minutes. documented in this encounter Plan of Treatment Upcoming Encounters Date Type Department Care Team (Late st Contact Info) Description 04/08/2024 1:40 PM EDT Office Visit Cardiology at [address] [address] Jay Urban MD [facility] [place] [address] 04/15/2024 10:00 AM EDT Hospital Encounter Non[place] [phone] Arrived documented as of this encounter Goals Goal Patient Goal Type Associated Problems Recent Progress Patient-Stated? Author [facility] [place] Medication Compliance and Understanding Patient Facing Action Plan On track( 017 10:41 AM EDT) No Selena Cisneros, [facility] Note: Patient [...] : 1950 ?Height: 180 cm ? Account: [id number] Age: 71 yrs ?Weight: 103 kg Gender: [...] is moderate mitral regurgitation. Procedure Limited - 05708. Doppler - 44142. Color Doppler - 20819. Satisfactory quality. There is a pacemaker rhythm. Left Ventricle Left ventricle is mildly dilated. Wall thickness is moderately increased. Left ventricular systolic function is mildly reduced. The left ventricular ejection fraction is 45% by Elizabeth's biplane. The left ventricular ejection fraction is 47% by 3D volumetric assessment. Global longitudinal strain is measured at -9.7 (VolunteerSpot) %. There is global hypokinesis with regional [...] HR: 68 : 1950 Height: 180 cm Account:[id number] Age: 71 yrs Weight: 103 kg Gender: [...] is moderate mitral regurgitation. Procedure Limited - 33674. Doppler - 71417. Color Doppler - 57310. Satisfactoryquality. There is a pacemaker rhythm. Left [...] dysfunction documented in this encounter Care Teams Laborer Cutting Tool Relationship Specialty Start Date End Date Urbano Denis DO [address] [place] [address] [address] [place] [address] PCP - General 09/03/12 03/17/22 Hai STANLEY,Ruchi Nurse Clinic Transplant Surgery 07/30/15 documented as of this encounter
--- OUTSIDE RECORDS SUMMARY | 2024-04-04 13:55 | XMS_ITS | Encounter Summary ---
Author Organization [facility] [address] Care Team Providers Care Electronic Device Repairer Name Role Phone Urbano Denis DO Primary Care Provider [phone] Reason for Visit * Consultation (Routine) - Closed Specialty Diagnoses / Procedures Referred By Contact Referred To Contact Electrophysiology / Cardiology Diagnoses Tachy-roman syndrome Tachy-roman syndrome Leela Acosta MD [facility] [place] [address] [facility] Cardiology [address]a [address] [place] [phone] Referral ID Status Reason Start Date Expiration Date V isits Requested Visits Authorized [id number] Closed Consult, Test & Treat 02/04/2022 02/04/2023 1 1 Encounter Details Date Type Department Care Team (Late st Contact Info) Description 02/12/2022 11:00 AM EDT Office Visit Cardiology at [address] [address] Elisha Amaya RN Tachy-roman syndrome [...] pacemaker and Watchman were shown. PCP:Urbano Denis, Bid Clerk: Dr Brown Final Parameters at implant: ? 1. Medtronic Geneva XT DR LOULOU Model #W1DR01, Serial # [id number] Atrial lead ?? 1. Medtronic CapsureFix Model# 5076-45 cm Serial# [id number] ??? Bipolar, steroid-tipped, active-fixation IS-1 lead ??? Access: ? Right Axillary vein ??? Location ? Right atrial appendage ??? F wave, pacemaker: ?? 0.6 mV ??? Pacing threshold, pacemaker: N/A (pt in atrial flutter) ??? Impedance, pacemaker: ??437 Ohms ??? Diaphragmatic Stim. @ 8V: ??No Ventricular electrode: ?? Tidal Wave Technologytronic CapsureFix Model# 5076-52 cm Serial# [id number] ??? Bipolar, steroid-tipped, active-fixation IS-1 lead ??? Access: ? Right Axillary vein ??? Location: ?Right ventricular apical septum ??? R wave, pacemaker: ?11.1 mV ??? Pacing threshold, pacemaker: 0.5 V at 0.4 ms ??? Impedance, pacemaker: ??607 ohms ??? Diaphragmatic Stim. @ 8V : No Settings: Underlying rhythm: AF with ventricular rates 40-80's Presenting: AF/VS/ESL TEACHER Atrial Lead: P wave: 0.4 mV Fib wave Impedance: 399 ohms Threshold: not performed Ventricular Lead: R wave: 7.9 mV Impedance: 418 ohms Threshold: 0.75V@0.4 ms Since January Heart rate histograms: reasonable distribution Pacing percentages: AP 6.3%; ESL TEACHER 61.5 % Mode switch episodes: 214 for a 97.2% burden- with average ventricular rates 60- 90's bpm, some atrial undersensing observed suggesting burden is greater. VHR: None PVC per hour: 3.3 singles and 0.5 of the 2-4 beat runs Battery voltage: 3.21V(COMIC BOOK ARTIST:2.63 V) Est 12.6 years remaining Wound assessment: Well approximated and healing RIGHT chest incision with no drainage or hematoma. No redness or signs of infection. Reprogramming: Iterative changes to assess device function. Plan: Remote has Iphone monitor which is active and monioring RTC for 91 day check Provider: Elsiha Amaya RN Attending: Dr Urban documented in this encounter Plan of Treatment Upcoming Encounters Date Type Department Care Team (Late st Contact Info) Description 04/08/2024 1:40 PM EDT Office Visit Cardiology at [address] [address] aJy Urban MD [facility] [place] [address] 04/15/2024 10:00 AM EDT Hospital Encounter Non[place] [address] Arrived Scheduled Referrals Name Type [...] dysfunction documented in this encounter Care Teams Electronic Device Repairer Relationship Specialty Start Date End Date Urbano Denis DO [address] [place] [address] PCP - General 09/03/12 03/17/22 Ruchi Valles RN Nurse Clinic Transplant Surgery 07/30/15 documented as of this encounter
--- OUTSIDE RECORDS SUMMARY | 2024-04-04 13:55 | XMS_ITS | Encounter Summary ---
Author Organization [facility] [address] Care Team Providers Care Multiple Drum Sander Helper Name Role Phone AdeelUrbano boland Primary Care Provider + [phone] Encounter Details Date Type Department Care Team (Late st Contact Info) Description 02/18/2022 Telephone Cardiology at [address] [address] Luigi Mathew MD [facility] [place] [address] Social History Tobacco Use Types Packs/Day Years [...] 19:49 Referring Provider: Dr. Easton Patient Location: [facility] Presenting Symptoms per OSH: Mr. Bolden [...] or examined this patient. Luigi Mathew MD Project Control Manager PGY-5 [facility] documented in this encounter Plan of Treatment Upcoming Encounters Date Type Department Care Team (Late st Contact Info) Description 04/08/2024 1:40 PM EDT Office Visit Cardiology at [address] [phone] Jay Urban MD [facility] [place] [address] 04/15/2024 10:00 AM EDT Hospital Encounter [place] [address] Arrived documented as of this encounter Goals [...] filedocumented in this encounter Care Teams Multiple Drum Sander Helper Relationship Specialty Start Date End Date Urbano Denis DO [address] [place] [address] PCP - General 09/03/12 03/17/22 Ruchi Valles RN Nurse Clinic Transplant Surgery 07/30/15 documented as of this encounter
--- OUTSIDE RECORDS SUMMARY | 2024-04-04 13:56 | XMS_ITS | Encounter Summary ---
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 Social History [...] PM EDT Office Visit Cardiology at [address] [phone] Jay Urban MD [facility] [place] [address] 04/15/2024 10:00 AM EDT Hospital Encounter Non-Invasive Cardiology Lab [facility] [place] [address] Arrived Scheduled Orders Name Type Priority Associated Diagnoses Orde r Schedule Transplant: Yearly lab request - External Results Lab Routine H/O kidney transplant Vitamin D deficiency 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
--- OUTSIDE RECORDS SUMMARY | 2024-04-04 13:56 | XMS_ITS | Encounter Summary ---
Author Organization [facility] [place] [address] Care Team Providers Care Call Center Operator Name Role Phone AdeelUrbano boland Primary Care Provider Encounter Details Date Type Department Care Team (Late st Contact Info) Description 03/13/2021 Orders Only Cardiology at [address] [phone] Byron Brown MD [facility] [place] [address] Atrial fibrillation with RVR - had flutter [...] PM EDT Office Visit Cardiology at [address] [address] Jay Urban MD [facility] [place] [address] 04/15/2024 10:00 AM EDT Hospital Encounter Non-[place] [address] Arrived documented as of this encounter Goals Goal Patient Goal Type Associated Problems Recent Progress Patient-Stated? Author [facility] Medication Compliance and Understanding Patient Facing Action Plan On track( 017 10:41 AM EDT) Selena Scott, [facility] Note: Patient Goal: Clear hepatitis C Timeframe to meet goal: within 12 weeks of therapy documented as of this encounter Visit Diagnoses Diagnosis Atrial fibrillation with RVR - had flutter initially, then fib Atrial fibrillation documented in this encounter Care Teams Call Center Operator Relationship Specialty Start Date End Date Urbano Denis DO [address] [place] [address] PCP - General 09/03/12 03/17/22 Ruchi Valles RN Nurse Clinic Transplant Surgery 07/30/15 documented as of this encounter
--- OUTSIDE RECORDS SUMMARY | 2024-04-04 13:56 | XMS_ITS | Encounter Summary ---
Author Organization [facility] [place] [address] Care Team Providers Care Pigment Pusher Name Role Phone AdeelUrbano toscano Primary Care Provider [phone] Reason for Visit * Reason Onset Date Comments Medication Refill 01/14/2022 Atorvastatin Encounter Details Date Type Department Care Team (Late st Contact Info) Description 01/14/2022 Refill Cardiology at [address] [address] Byron Brown MD [facility] [place] [address] Medication Refill (Atorvastatin) Social History Tobacco Use [...] 1:40 PM EDT Office Visit Cardiology at [address] [phone] Jay Urban MD [facility] [place] [address] 04/15/2024 10:00 AM EDT Hospital Encounter Non-Invasive [place] [address] Arrived documented as of this encounter Goals Goal Patient Goal Type Associated Problems Recent Progress Patient-Stated? Author [facility] Medication Compliance and Understanding Patient Facing Action Plan On track( 017 10:41 AM EDT) Selena Scott, [facility] Note: Patient Goal: Clear hepatitis C Timeframe to meet goal: within 12 weeks of therapy documented as of this encounter Visit Diagnoses Diagnosis Coronary artery disease Coronary atherosclerosis of unspecified type of vessel, [place] or graft documented in this encounter Care Teams Pigment Pusher Relationship Specialty Start Date End Date Urbano Denis DO [address] [place] [address] PCP - General 09/03/12 03/17/22 Ruchi Valles RN Nurse Clinic Transplant Surgery 07/30/15 documented as of this encounter
--- OUTSIDE RECORDS SUMMARY | 2024-04-04 13:56 | XMS_ITS | Encounter Summary ---
Author Organization [facility] [place] [address] Care Team Providers Care Box Coverer Hand Name Role Phone AdeelUrbano toscano Primary Care Provider [phone] Encounter Details Date Type Department Care Team (Late st Contact Info) Description 04/04/2021 7:35 PM EDT Ancillary Procedure Radiology Library at [facility] [place] [place] [phone] Byron Brown MD [facility] [place] [address] Social History Tobacco Use Types Packs/Day Years [...] PM EDT Office Visit Cardiology at [address] [place] [phone] Jay Urban MD [facility] [place] [address] 04/15/2024 10:00 AM EDT Hospital Encounter Non[place] [address] Arrived documented as of this encounter Goals Goal Patient Goal Type Associated Problems Recent Progress Patient-Stated? Author [facility] Medication Compliance and Understanding Patient [...] & Pelvis (04/04/2021 7:32 PM EDT) Narrative [facility] - 04/04/2021 7:32 PM EDT This exam is auto-finalizing. It's purpose is for storage only. Byron Brown MD [facility]M [facility] OR DERABLES [place], [place] documented in this encounter Visit Diagnoses Not on filedocumented in this encounter Care Teams Box Coverer Hand Relationship Specialty Start Date End Date Urbano Denis DO [address] [place] [address] PCP - General 09/03/12 03/17/22 Ruchi Valles RN Nurse Clinic Transplant Surgery 07/30/15 documented as of this encounter
--- OUTSIDE RECORDS SUMMARY | 2024-04-04 13:56 | XMS_ITS | Encounter Summary ---
Author Organization [facility] Address [facility] [place] [address] Care Team Providers Care Glue Wheel Operator Name Role Phone Urbano Denis DO Primary Care Provider [phone] Reason for Visit * Reason Comments Establish Care * Consultation (Routine) - Closed Specialty Diagnoses / Procedures Referred By Humberto flor Referred To Contact General Surgery Diagnoses Postprandial RUQ pain Hepatitis C virus infection without hepatic coma, unspecified chronicity Gall stones Hepatic steatosis Other complication of kidney transplant Tal Eagle MD [facility] [place] [address] Matt Corea MD [facility] [place] [address] Referral ID Status Reason Start Date Expiration Date V isits Requested Visits Authorized [id number] Closed Consult, Test & Treat 10/22/2021 10/22/2022 1 1 Encounter Details Date Type Department Care Team (Late st Contact Info) Description 12/05/2021 11:00 AM EDT Office Visit General Surgery at [place] [phone] Sandra Davis MD [facility] [address] Asymptomatic gallstones Social History Tobacco Use Types [...] hepatitis) K73.2 ??? Prophylactic immunotherapy Z29.8 ??? rn long term care current use of immunosuppressive drug Z79.899 [...] EXAM UP TO 1 HR [facility] PROV N/A 05/10/2020 FLUOROSCOPY (WRVU 0.17) performed by Joseph Ang MD at [facility] MAIN OR ??? PRO ANASTOMOSIS, AV, ANY SITE Left 05/09/2015 AV FISTULA CREATION, DIRECT HEMODIALYSIS, ANY SITE, EG ASHWINI FISTULA UPPER EXTREMITY performed by Que Amaro MD at [facility] OR ??? PRO CYSTOURETHROSCOPY, URETER CATHETER Left 06/17/2018 CYSTO, RETROGRADE, URETEROPYELOGRAPHY (WRVU 2.37) performed by Edinson Grider III, MD at [facility] ??? PRO LAMINEC/FACETECT/FORAMIN, LUMBAR 1 SEG N/A 05/10/2020 LAMINECTOMY, FACETECTOMY & FORAMINOTOMY,LUMBAR, ONE LEVEL (WRVU 15.37) performed by Joseph Ang MD at [facility] OR ??? PRO LAMINOTOMY, LUMBAR DISK, 1 INTRSP N/A 05/10/2020 LAMINOTOMY, DECOMPRESSION, FORAMINOTOMY, LUMBAR (WRVU 13.18) performed by Joseph Ang MD at [facility] OR ??? PRO MICROSURG TECHNIQUES, REQ OPER MICROSCOPE N/A 05/10/2020 MICROSCOPE USE (WRVU 3.46) performed by Joseph Ang MD at [facility] OR ??? PRO REIMPLANT URETER, SINGLE URETER Left 05/20/2016 @URETERONEOCYSTOSTOMY ANASTOMOSIS OF SINGLE URETER TO BLADDER performed by Santosh Arredondo MD at [facility] OR ??? PRO REIMPLANT URETER, SINGLE URETER N/A 05/20/2016 @URETERONEOCYSTOSTOMY ANASTOMOSIS OF SINGLE URETER TO BLADDER performed by Que Amaro MD at [facility] OR ??? PRO TOTAL KNEE ARTHROPLASTY Right 11/25/2017 TOTAL KNEE ARTHROPLASTY (WRVU 20.72) performed by Breezy Dale MD at [facility] OR ??? PRO TRANSPLANT, PREP CADAVER RENAL GRAFT N/A 09/16/2015 @PREPARATION CADAVERIC RENAL ALLOGRAFT performed by Franko Larkin MD at [facility] OR ??? PRO TRANSPLANTATION OF KIDNEY N/A 09/16/2015 @KIDNEY TRANSPLANT, WITHOUT RECIPIENT NEPHRECTOMY performed by Franko Larkin MD at [facility] OR ??? TISSUE TRANSFER kidney ??? US RENAL TRANSPLANT LEFT Left 01/31/2019 US Renal Transplant Left 01/31/2019 [facility] RAD ULTRASOUND ??? US RENAL TRANSPLANT LEFT Left 02/07/2019 US Renal Transplant Left 02/07/2019 [facility] RAD ULTRASOUND Bilateral inguinal hernia repair - [...] PM EDT Office Visit Cardiology at [address] [phone] Jay Urban MD [facility] [place] [address] 04/15/2024 10:00 AM EDT Hospital Encounter Non-Invasive Cardiology Lab [facility] [place] [address] Arrived documented as of this encounter Goals [...] obstruction documented in this encounter Care Teams Glue Wheel Operator Relationship Specialty Start Date End Date Urbano Denis DO [address] [place] [address] [address] [facility] 1 [place] [address] PCP - General 09/03/12 03/17/22 Ruchi Valles RN Nurse Clinic Transplant Surgery 07/30/15 documented as of this encounter
--- OUTSIDE RECORDS SUMMARY | 2024-04-04 13:56 | XMS_ITS | Encounter Summary ---
Author Organization Counts Include [facility] Address [facility] Joel [facility] [place] [address] Care Team Providers Care Bookkeeping Clerks Supervisor Name Role Phone AdeelUrbano Primary Care Provider + [phone] Encounter Details Date Type Department Care Team (Late st Contact Info) Description 01/30/2022 Telephone Cardiology at [address] [phone] Sandra Aleman PA [facility] [place] [address] Social History Tobacco Use Types Packs/Day Years [...] PM Referring Provider: Rosetta SEN Patient Location: [facility] Past Medical History: Coronary artery disease status post PCI (2018) L basal ganglionic hemorrhage in February 2021 [...] management. Sandra Aleman PA-C Cardiovascular Medicine Pager [phone] 01/30/2022 documented in this encounter Plan of Treatment Upcoming Encounters Date Type Department Care Team (Late st Contact Info) Description 04/08/2024 1:40 PM EDT Office Visit Cardiology at [address] [phone] Jay Urban MD [facility] [place] [address] 04/15/2024 10:00 AM EDT Hospital Encounter Non[place] [address] Arrived documented as of this encounter Goals [...] on filedocumented in this encounter Care Teams Bookkeeping Clerks Supervisor Relationship Specialty Start Date End Date Urbano Denis DO [address] [facility] [address] [facility] 1 [place] [address] PCP - General 09/03/12 03/17/22 Ruchi Valles RN Nurse Clinic Transplant Surgery 07/30/15 documented as of this encounter
--- OUTSIDE RECORDS SUMMARY | 2024-04-04 13:56 | XMS_ITS | Encounter Summary ---
Author Organization [facility] Address [facility] [place] [address] Care Team Providers Care Senior Maintenance Technician Name Role Phone Adeel Urbano KIRBY Primary Care Provider Reason for Referral * Consultation (Routine) - Closed Specialty Diagnoses / Procedures Referred By Humberto flor Referred To Contact General Surgery Diagnoses Postprandial RUQ pain Hepatitis C virus infection without hepatic coma, unspecified chronicity Gall stones Hepatic steatosis Other complication of kidney transplant Tal Eagle MD [facility] [place] [address] Matt Corea MD [facility] [place] [address] Referral ID Status Reason Start Date Expiration Date V isits Requested Visits Authorized [id number] Closed Consult, Test & Treat 10/22/2021 10/22/2022 1 1 Encounter Details Date Type Department Care Team (Latest Contact Info) Description 10/02/2021 11:20 AM EDT Office Visit [place] [address] Tal Eagle MD [facility] [place] [address] Postprandial RUQ pain; Hepatitis C virus infection [...] Cortés) and diverticulitis 03/2021 (see [facility]). He has no residual defects. Has seen Dr. Brown via telehealth and his cardiomuopathy has improved and he seems stable now. Previously rec'd both COVID shots (09/12 and 10/03/20) and since the last time he was seen his 3rd:05/11/2021 - [facility]; today he rec'd an updated pneumovax 23 [...] hepatitis) 08/25/2016 ??? Prophylactic immunotherapy 09/22/2016 ??? 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 [...] 05/10/2020 FLUOROSCOPY (WRVU 0.17) performed by Joseph Agn MD at [facility] MAIN OR ??? PRO ANASTOMOSIS, AV, ANY SITE Left 05/09/2015 AV FISTULA CREATION, DIRECT HEMODIALYSIS, ANY SITE, EG ASHWINI FISTULA UPPER EXTREMITY performed by Que Amaro MD at [facility] MAIN OR ??? PRO CYSTOURETHROSCOPY, URETER CATHETER Left 06/17/2018 CYSTO, RETROGRADE, URETEROPYELOGRAPHY (WRVU 2.37) performed by Edinson Grider III, MD at [facility] ??? PRO LAMINEC/FACETECT/FORAMIN, LUMBAR 1 SEG N/A 05/10/2020 LAMINECTOMY, FACETECTOMY & FORAMINOTOMY,LUMBAR, ONE LEVEL (WRVU 15.37) performed by Joseph Ang MD at [facility] OR ??? PRO LAMINOTOMY, LUMBAR DISK, 1 INTRSP N/A 05/10/2020 LAMINOTOMY, DECOMPRESSION, FORAMINOTOMY, LUMBAR (WRVU 13.18) performed by Joseph Ang MD at [facility] OR ??? PRO MICROSURG TECHNIQUES, REQ OPER MICROSCOPE N/A 05/10/2020 MICROSCOPE USE (WRVU 3.46) performed by Joseph Ang MD at [facility] OR ??? PRO REIMPLANT URETER, SINGLE URETER Left 05/20/2016 @URETERONEOCYSTOSTOMY ANASTOMOSIS OF SINGLE URETER TO BLADDER performed by Santosh Arredondo MD at [facility] OR ??? PRO REIMPLANT URETER, SINGLE URETER N/A 05/20/2016 @URETERONEOCYSTOSTOMY ANASTOMOSIS OF SINGLE URETER TO BLADDER performed by Que Amaro MD at [facility] OR ??? PRO TOTAL KNEE ARTHROPLASTY Right 11/25/2017 TOTAL KNEE ARTHROPLASTY (WRVU 20.72) performed by Breezy Dale MD at [facility] OR ??? PRO TRANSPLANT, PREP CADAVER RENAL GRAFT N/A 09/16/2015 @PREPARATION CADAVERIC RENAL ALLOGRAFT performed by Franko Larkin MD at [facility] OR ??? PRO TRANSPLANTATION OF KIDNEY N/A 09/16/2015 @KIDNEY TRANSPLANT, WITHOUT RECIPIENT NEPHRECTOMY performed by Franko Larkin MD at [facility] OR ??? TISSUE TRANSFER kidney ??? US RENAL TRANSPLANT LEFT Left 01/31/2019 US Renal Transplant Left 01/31/2019 [facility] RAD ULTRASOUND ??? US RENAL TRANSPLANT LEFT Left 02/07/2019 US Renal Transplant Left 02/07/2019 [facility] RAD ULTRASOUND ?? Current Outpatient Medications: [...] for diabetics, every 5 for non diabetics [place] kidney ultrasound looking for renal cell CA, [...] from 10/02/2021 in Solid Organ Transplant at [facility] Weight 102.5 kg (226 lb) Temp 36.7 [...] - No asterixis. ? Labs obtained at [facility]: 09/10/21 Creat 1.4 Ca 9.3 Lipid profile [...] ? Immunosuppression -Prograf, Cellcept ?? 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 PO4/Mg - Kphos.??2 tabs bid - Magnesium??gluconate [id number] TID ?? Erythrocytosis -??cont' to observe No [...] watchful waiting in anticipation of progression ? [id number] labs f/u in??September 2022 ?? ? Discussion with the patient and/or family concerned the following: ?Diagnostic results or recommended studies ?Prognosis; ?Risks and benefits of management; ?Instructions for management; ?Compliance with treatment; ?Risk factor reduction; ?Patient and family education. ? Total time?25 of 30 min??in direct face to face correctional substance abuse counselor. documented in this encounter Plan of Treatment Upcoming Encounters Date Type Department Care Team (Late st Contact Info) Description 04/08/2024 1:40 PM EDT Office Visit Cardiology at [address] [phone] Jay Urban MD [facility] [place] [place] [address] 04/15/2024 10:00 AM EDT Hospital Encounter Non-Invasive [place] [address] Arrived Scheduled Referrals Name Type [...] immunotherapy documented in this encounter Care Teams Senior Maintenance Technician Relationship Specialty Start Date End Date Urbano Denis DO [address] [place] [address] PCP - General 09/03/12 03/17/22 Ruchi Valles RN Nurse Clinic Transplant Surgery 07/30/15 documented as of this encounter
--- OUTSIDE RECORDS SUMMARY | 2024-04-04 13:56 | XMS_ITS | Encounter Summary ---
[place] [address] Care Team Providers Care Inspector Technician Name Role Phone Urbano Denis DO Primary Care Provider [phone] Reason for Referral * Consultation (Routine) - Closed Specialty Diagnoses / Procedures Referred By Humberto flor Referred To Contact Gastroenterology Diagnoses H/O kidney transplant Diverticulitis of large intestine without perforation or abscess without bleeding Tal Eagle MD [facility] [place] [address] [facility] Endoscopy [address] [place] [address] Referral ID Status Reason Start Date Expiration Date V isits Requested Visits Authorized [id number] Closed Test Only 05/14/2021 05/14/2022 1 1 Encounter Details Date Type Department Care Team (Late st Contact Info) Description 05/14/2021 Telephone [place] [address] Marisela Metcalf RN Social History [...] up with GI after recent admission at [facility] when he was diagnosed with diverticulitis. Dr. Pettit recommended PPI daily for GERD and follow up colonoscopy. Mara does not believe Yash needs daily medication for GERD since he does not have frequent symptoms and would prefer he has his colonoscopy at [facility]. I let Mara know that if Yash is having GERD symptoms more than twice weekly he would benefit from a daily medication. I also confirmed we could set him up for his colonoscopy here at [facility] if that is what they prefer. Mara [...] 1:40 PM EDT Office Visit Cardiology at [address] [phone] Jay Urban MD [facility] [place] [address] 04/15/2024 10:00 AM EDT Hospital Encounter Non-[place] [address] Arrived Scheduled Referrals Name Type [...] hemorrhage) documented in this encounter Care Teams Inspector Technician Relationship Specialty Start Date End Date Urbano Denis DO [address] [place] [address] PCP - General 09/03/12 03/17/22 Ruchi Valles RN Nurse Clinic Transplant Surgery 07/30/15 documented as of this encounter
--- OUTSIDE RECORDS SUMMARY | 2024-04-04 13:56 | XMS_ITS | Encounter Summary ---
[place] [address] Care Team Providers Care Extruding Machine Operator Name Role Phone Urbano Denis DO Primary Care Provider + [phone] Encounter Details Date Type Department Care Team (Late st Contact Info) Description 03/03/2021 Telephone Cardiology at [address] [address] Garry Chaudhary [facility] [place] [address] Social History Tobacco Use Types Packs/Day Years [...] PCI (2019) who was recently admitted to [facility] with a brain bleed. We do not have records of this. Pt's is calling saying that he was discharged on Thursday at which time eliquis and aspirin werestopped and his BP regimen was changed around. Today BP was 138/101 about 1 hour after giving hydralazine (started at [facility]) for bleed. Called [facility] who instructed her to repeat BP which [...] 1:40 PM EDT Office Visit Cardiology at [address] [phone] Jay Urban MD [facility] [place] [address] 04/15/2024 10:00 AM EDT Hospital Encounter Non[place] [phone] Arrived documented as of this encounter Goals Goal Patient Goal Type Associated Problems Recent Progress Patient-Stated? Author [facility] Medication Compliance and Understanding Patient Facing Action Plan On track( 017 10:41 AM EDT) Selena Scott, [facility] Note: Patient Goal: Clear hepatitis C Timeframe to meet goal: within 12 weeks of therapy documented as of this encounter Visit Diagnoses Not on filedocumented in this encounter Care Teams Extruding Machine Operator Relationship Specialty Start Date End Date Urbano Denis DO [address] [place] [address] [address] [place] [address] PCP - General 09/03/12 03/17/22 Ruchi Valles RN Nurse Clinic Transplant Surgery 07/30/15 documented as of this encounter
--- OUTSIDE RECORDS SUMMARY | 2024-04-04 13:56 | XMS_ITS | Encounter Summary ---
Author Organization [facility] [place] [address] Care Team Providers Care Machine Setter And Repairer Name Role Phone Urbano Denis DO Primary Care Provider [phone] Encounter Details Date Type Department Care Team (Late st Contact Info) Description 09/16/2021 External Results [place] [address] Social History Tobacco Use Types [...] PM EDT Office Visit Cardiology at [address] [phone] Jay Urban MD [facility] [place] [address] 04/15/2024 10:00 AM EDT Hospital Encounter Non-[place] [address] Arrived documented as of this [...] Scan Doc: Lab (09/10/2021) Historical Provider MD MEDIA MGR SCAN EX T ORDR/RSLT documented in this encounter Visit Diagnoses Not on filedocumented in this encounter Care Teams Machine Setter And Repairer Relationship Specialty Start Date End Date Urbano Denis DO [address] [place] [address] PCP - General 09/03/12 03/17/22 Ruchi Valles RN Nurse Clinic Transplant Surgery 07/30/15 documented as of this encounter
--- OUTSIDE RECORDS SUMMARY | 2024-04-04 13:56 | XMS_ITS | Encounter Summary ---
Author Organization [facility] [place] [address] Care Team Providers Care Tax Manager Name Role Phone Urbano Denis DO Primary Care Provider [phone] Encounter Details Date Type Department Care Team (Late st Contact Info) Description 04/05/2021 Telephone [place] [phone] Marisela Metcalf RN Social History Tobacco Use [...] He is currently admitted for diverticulitis at [facility]. I assured Mara that CT scanwas re-asurring regarding his kidney. Mara feels better knowing we are aware and involved in Yash's care. I asked her to call at any timewith questions or concerns. documented in this encounter Plan of Treatment Upcoming Encounters Date Type Department Care Team (Late st Contact Info) Description 04/08/2024 1:40 PM EDT Office Visit Cardiology at [address] [phone] Jay Urban MD [facility] [place] [address] 04/15/2024 10:00 AM EDT Hospital Encounter Non-Invasive [place] [phone] Arrived documented as of this encounter Goals Goal Patient Goal Type Associated Problems Recent Progress Patient-Stated? Author [facility] Medication Compliance and Understanding Patient Facing Action Plan On track( 017 10:41 AM EDT) Selena Scott, [facility] Note: Patient Goal: Clear hepatitis C Timeframe to meet goal: within 12 weeks of therapy documented as of this encounter Visit Diagnoses Not on filedocumented in this encounter Care Teams Tax Manager Relationship Specialty Start Date End Date Urbano Denis DO [address] [place] [address] PCP - General 09/03/12 03/17/22 Ruchi Valles RN Nurse Clinic Transplant Surgery 07/30/15 documented as of this encounter
--- OUTSIDE RECORDS SUMMARY | 2024-04-04 13:56 | XMS_ITS | Encounter Summary ---
Author Organization [facility] [place] [address] Care Team Providers Care Application Support Analyst Name Role Phone Adeel Urbano KIRBY Primary Care Provider [phone] Encounter Details Date Type Department Care Team (Late st Contact Info) Description 06/21/2021 [place] [address] Devi Preciado Social History Tobacco Use Types [...] 1:40 PM EDT Office Visit Cardiology at [address] [phone] Jay Urban MD [facility] [place] [address] 04/15/2024 10:00 AM EDT Hospital Encounter Non[place] [address] Arrived documented as of this [...] filedocumented in this encounter Care Teams Application Support Analyst Relationship Specialty Start Date End Date Urbano Denis DO [address] [place] [address] [address] [facility] [address] [place] [address] PCP - General 09/03/12 03/17/22 Ruchi Valles RN Nurse Clinic Transplant Surgery 07/30/15 documented as of this encounter
--- OUTSIDE RECORDS SUMMARY | 2024-04-04 13:56 | XMS_ITS | Encounter Summary ---
Author Organization [facility] [place] [address] Care Team Providers Care Pediatric Occupational Therapist Name Role Phone Adeel Urbano KIRBY Primary Care Provider [phone] Reason for Visit * Reason Comments Medication Refill Encounter Details Date Type Department Care Team (Late st Contact Info) Description 10/28/2021 Refill [place] [phone] Tal Eagle MD [facility] [place] [address] Social History Tobacco Use Types Packs/Day Years [...] PM EDT Office Visit Cardiology at [address] [phone] Jay Urban MD [facility] [place] [address] 04/15/2024 10:00 AM EDT Hospital Encounter Non-Invasive [place] [phone] Arrived documented as of this encounter Goals [...] on filedocumented in this encounter Care Teams Pediatric Occupational Therapist Relationship Specialty Start Date End Date Urbano Denis DO [address] [place] [address] [address] [facility] 1 [place] [address] PCP - General 09/03/12 03/17/22 Ruchi Valles RN Nurse Clinic Transplant Surgery 07/30/15 documented as of this encounter
--- OUTSIDE RECORDS SUMMARY | 2024-04-04 13:56 | XMS_ITS | Encounter Summary ---
Author Organization [facility] [place] [address] Care Team Providers Care Whiting Can Worker Name Role Phone Urabno Denis DO Primary Care Provider [phone] Encounter Details Date Type Department Care Team (Late Contact Info) Description 01/20/2022 Notes Only [place] [address] Anabella Bright Social History Tobacco Use Types [...] and Mycophenolate Insurance: Anthem Medicare Advantage Phone: Billiard Table Mechanic: [employer] Reference #: Tacrolimus [id number] and Mycophenolate [id number] Outcome: Approved under part B side of benefit - this plan manages both part B and D, therefore letter indicates denied under part D BUT approved under B. documented in this encounter Plan of Treatment Upcoming Encounters Date Type Department Care Team (Late Contact Info) Description 04/08/2024 1:40 PM EDT Office Visit Cardiology at [address] [phone] Jay Urban MD [facility] [place] [address] 04/15/2024 10:00 AM EDT Hospital Encounter Non-Invasive [place] [phone] Arrived documented as of this encounter Goals Goal Patient Goal Type Associated Problems Recent Progress Patient-Stated? Author [facility] Medication Compliance and Understanding Patient Facing Action Plan On track( 017 10:41 AM EDT) Selena Scott, [facility] Note: Patient Goal: Clear hepatitis C Timeframe to meet goal: within 12 weeks of therapy documented as of this encounter Visit Diagnoses Not on filedocumented in this encounter Care Teams Whiting Can Worker Relationship Specialty Start Date End Date Urbano Denis DO [address] [place] [address] PCP - General 09/03/12 03/17/22 Ruchi Valles RN Nurse Clinic Transplant Surgery 07/30/15 documented as of this encounter
--- OUTSIDE RECORDS SUMMARY | 2024-04-04 13:56 | XMS_ITS | Encounter Summary ---
Author Organization [place] [address] Care Team Providers Care Displayer Name Role Phone Urbano Denis DO Primary Care Provider + [phone] Reason for Visit * Auth/Cert Specialty Diagnoses / Procedures Referred By Humberto flor Referred To Contact Diagnoses Tachy-roman syndrome Tachy-Roman Syndrome Procedures emerg robbi Niru Harrison MD [facility] [place] [address] [facility] Referral ID Status Reason Start Date Expiration Date Visits Re quested Visits Authorized [id number] 1 1 Encounter Details Date Type Department Care Team (Late st Contact Info) Description 01/31/2022 10:45 AM EDT - 01/31/2022 1:45 PM EDT Surgery [place] [address] Jay Urban MD [facility] [place] [address] [place] [address] ELECTROPHYSIOLOGY PROCEDURE Social History Tobacco Use Types [...] Ethel Akins Patient Age: 71 y.o. Language: Northern Irish Race: White Ethnicity: Not nor Admit date: 01/30/2022 Discharge date and time: 02/01/2022 Attending Physician: Misael Ellis MD Discharge Physician: Misael Ellis MD ?? I have seen and examined this patient and discussed with the product managent intern, resident, fellow. ??I agree with the plan noted ?? This is a 71 year old gentleman, followed by cardiology at [facility] (Dr Michael Brown). 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 ??2019 he underwent PCI, also history of basal ganglia bleed. ??Now with atrial fibrillation. He underwent pacemaker implantation (see details below). Note that we did not anticoagulate him as he has history of basal ganglia bleed. His [id number] score is high and I have reached out to his sales floor team member (Dr. Michael Brown) to have him follow up (attempt at jewish of sinus, benefits:risks foranticoagulation, consideration of Watchman Device). Niru Harrison MD, Karen, FACC Attending Cheerleading Coach ID: Ethel Akins is a 71 y.o. [...] DO [address] [place] [address] / [facility] [id number] Pending Studies and Lab Data: none Discharge [...] Vitamin D deficiency ??? 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 group home current use of immunosuppressive drug ??? 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 ?? He reports that approximately 3 weeks ago intermittent lightheadedness that was random and without any associated factors. He presented to the ER 2 times, initially to [facility] where hewas incidentally found to have [...] after that. This morning he presented to [facility] with frequent e pisodes of lightheadedness, as well as dyspnea on exertion, and was found to be in A. fib with intermittent bradycardia into the 20s. [facility] cardiology was consulted for transfer for pacemaker [...] place for about 24 hours. ?? At [facility] labs were notable for WBC 10.3, [...] Mr. Akins presented as a transfer from [facility] due to symptomatic pauses in his heart [...] therapeutic range. 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 Procedures: Dual-Chamber [...] leaving the hospital. PCP: Urbano Denis, @ [phone] General Instructions - BEGIN EP DISCHARGE INSTRUCTIONS - FINAL PACEMAKER RECOMMENDATIONS: 1. Standard post implant discharge instructions (see below): 2. Medications as listed above. 3. You may use ice packs over the incision. Make sure to use a wiping cloth cutter (such as a towel) in between the [...] F. The office scheduling phone number is [phone]. ARM MOVEMENT RESTRICTIONS POST-IMPLANT - Do not [...] product, please call the device clinic at [phone]. - END EP DISCHARGE INSTRUCTIONS - Future Appointments and Orders Future Appointments and Orders Future Appointments Provider Department Dept Phone 02/05/2022 11:00 AM Byron Brown MD Cardiology at [facility] Arrive at: [facility] [phone] 02/12/2022 11:00 AM Elisha Amaya RN Cardiology at [facility] Arrive at: [facility] [phone] 04/04/2022 1:30 PM Mayco Barnes PA Cardiology at [facility] Arrive at: [facility] [phone] 05/05/2022 1:30 PM Elisha Amaya RN Cardiology at [facility] Arrive at: [facility] [phone] Primary Team Inpatient Physicians at [facility] was: Attending Physician(s): Niru Harrison MD Fellow: Que Raygoza MD Resident(s): Kayy Acosta MD Inpatient Provider Contact Information: If you have questions about this document please contact the [facility] line o scribe operator at and ask for one of [...] the incision. Make sure to use a wiping cloth cutter (such as a towel) in between the [...] F. The office scheduling phone number is [phone]. ARM MOVEMENT RESTRICTIONS POST-IMPLANT - Do not [...] product, please call the device clinic at [phone]. - END EP DISCHARGE INSTRUCTIONS - * [...] leaving the hospital. PCP: Urbano Denis, @ [phone] documented in this encounter Medications at Time [...] Mr. Akins is referred to his primary sales floor team member ,Dr. Brown and his neurologist, Dr. Rebolledo regarding this issue. Post implant arm restrictions discussed. Follow up at [facility] device clinic. Nikolas Loving MD [facility] Cardiac Electrophysiology 02/01/2022 9:44 AM * Nikolas Loving MD - 02/01/2022 9:17 AM EDT Cardiac Electrophysiology Post-Implant Device Assessment/Rounding Note Ethel Akins [id number] 02/01/2022 History: Ethel Akins is a 71 [...] FINAL LEAD PARAMETERS: Pulse generator: ? 1. [employer] Geneva XT DR MRI Model #W1DR01, Serial # [id number] Atrial lead ?? 1. Medtronic CapsureFix Model# 5076-45 cm Serial# [id number] ??? Bipolar, steroid-tipped, active-fixation IS-1 lead ??? Access: ? Right Axillary vein ??? Location ? Right atrial appendage ??? F wave, pacemaker: ?? 0.6 mV ??? Pacing threshold, pacemaker: N/A (pt in atrial flutter) ??? Impedance, pacemaker: ??437 Ohms ??? Diaphragmatic Stim. @ 8V: ??No Ventricular electrode: ?? Medtronic CapsureFix Model# 5076-52 cm Serial# [id number] ??? Bipolar, steroid-tipped, active-fixation IS-1 lead ??? Access: ? Right Axillary vein ??? Location: ?Right ventricular apical septum ??? R wave, pacemaker: ?11.1 mV ??? Pacing threshold, pacemaker: 0.5 V at 0.4 ms ??? Impedance, pacemaker: ??607 ohms ??? Diaphragmatic Stim. @ 8V : No Diagnostics Pacing Mode: AAIR <==> DDDR 60/130/130 Presenting EGMs: -VS/-PUBLIC SPEAKING INSTRUCTOR Underlying Rhythm: AFib 70-80's Atrial Episodes: 97.2% [...] post placement of right anterior chest wall dual-play leader. Impression: 71 y.o. male who is [...] 02/01/22. ? Dr. Nikolas Loving, electrophysiology attending ([id number]) * Niru Harrison MD - 02/01/2022 9:09 AM EDT Cardiology Day of Discharge Note ?? I have seen and examined this patient and discussed with the product managent intern, resident, fellow. ??I agree with the plan noted ?? This is a 71 year old gentleman, followed by cardiology at [facility] (Dr Michael Brown). 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 ??2019 he underwent PCI, also history of basal ganglia bleed. ??Now with atrial fibrillation. He underwent pacemaker implantation (see details below). Note that we did not anticoagulate him as he has history of basal ganglia bleed. His [id number] score is high and I have reached out to his sales floor team member (Dr. Michael Brown) to have him follow up (attempt at jewish of sinus, benefits:risks foranticoagulation, consideration of Watchman Device). ?? Niru Harrison MD, Karen, [facility] Cardiology Attending? Ethel Akins was seen and [...] examined this patient and discussed with the product managent intern, resident, fellow. I agree withthe plan noted ?? This is a 71 year old gentleman, followed by cardiology at [facility] (Dr Michael Brown). He has history of renal transplant, previous tachy-cardia mediated cardiomyopathy but recovered LV systolic function. 2019 he underwent PCI, also history of basal ganglia bleed. Now with atrial fibrillation. He will be ev aluated for pacemaker implantation--question of tachy/roman syndrome. ?? Niru Harrison MD, Karen, [facility] Cardiology Attending ?? Patient Name: Ethel Akins [...] Kayy Acosta MD Internal Medicine PGY-1 Pager [phone], M1-S1 Service * Carmela Alicia RN - [...] examined this patient and discussed with the product managent intern, resident, fellow. I agree withthe plan noted This is a 71 year old gentleman, followed by cardiology at [facility] (Dr Michael Brown). He has history of renal transplant, previous tachy-cardia mediated cardiomyopathy but recovered LV systolic function. 2019 he underwent PCI, also history of basal ganglia bleed. Now with atrial fibrillation. He will be ev aluated for pacemaker implantation--question of tachy/roman syndrome. Niru Harrison MD, Karen, [facility] Cardiology Attending Patient Name: Ethel Akins Service: Cardiology Team Responsible Attending: MISAEL ELLIS MD PCP: Urbano Denis DO PCP phone #: [phone] ID/Chief Complaint: Lightheadedness Tachybradycardia syndrome History of Present Illness: Mr. 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 He reports that approximately 3 weeks ago intermittent lightheadedness that was random and without any associated factors. He presented to the ER 2 times, initially to [facility] where hewas incidentally found to have [...] after that. This morning he presented to [facility] with frequent e pisodes of lightheadedness, as well as dyspnea on exertion, and was found to be in A. fib with intermittent bradycardia into the 20s. [facility] cardiology was consulted for transfer for pacemaker [...] in place for about 24 hours. At [facility] labs were notable for [...] Pleuritic pain Fatigue Syncope SOB Claudication x [facility] X All negative [...] Vitamin D deficiency ??? 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 group home current use of immunosuppressive drug ??? [...] kg ABG No results for input(s): PHART, LCH7TAH, PO2ART, OEJ6KWL in the last 168 hours. Examination: General [...] in the last 7068 hours. Invalid input(s): [id number] Heme: No results for input(s): LDH, HAPTOGLOBIN, URICACID in the last 168 hours. Microbiology: None Diagnostic Studies: No results found for this visit on 01/30/22. EKG here 01/30: Prior EKG at [facility] 01/10: CXR 01/30/22- MRI brain at [facility] 01/16/22: ASSESSMENT: Mr. Black is [...] block and frequent symptomatic pauses, transferred from [facility]. 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 Unclear trigger of his recurrent aflutter that was not detected on prior zioin 03/2021. No recent ischemic or infectious symptoms and exam today is benign. PLAN: Admit to Cardiology Team S1, Team Pager #[phone](S1) #Aflutter with variable block #symptomatic systolic pauses [...] MD Medicine, PGY-2 Cardiology Team S1, pager #[phone] 01/30/2022 documented in this encounter Miscellaneous Notes [...] not included. [facility] [place] [address] CARDIOLOGY ELECTROPHYSIOLOGY NOTE 01/31/22 Consult Reason: Lightheadedness in the setting of afib/aflutter tachy-roman syndrome and ESRD status HPI: Mr. Akins is a pleasant 71 yo M with hx of atypical aflutter/afib, HTN, tachy-roman syndrome, renal transplant who was transferred to [facility] on 01/30/22 for frequent episodes of lightheadedness. [...] night. He presented to the ED in [facility] three times over the past three [...] arrhythmia and still living, age 89 Father -[place] at age 62 Social Hx: T: smokes cigars E: has not had alcohol in years, no hx of heavy ETOH use D: no substance use [place]. Retired. Allergy: + [place] No medication allergies No current facility-administered medications [...] 95, LAFB, qtc 500 EKG 01/30/22 at [facility]: afib, HR 76 TTE 01/31/22: LVEF 46% [...] past three weeks. He was transferred to [facility] for EP evaluation. He has a hx of renal transplant in 2016 and developed an RAY with Cr up to 1.8s from 1.2 oneyear ago here. For this reason, optimizing his cardiac output with better rate control is needed to protect the transplanted kidney. He qualifies for a dual chamber pacemaker. GRAIN RECEIVER was considered but this will not be [...] Gonzales. Attestation to follow. Anali Dominguez MD Contour Sander, PGY4 Pager [phone] Addendum I personally interviewed and examined the patient, reviewed the available data. The above note reflects our thoughts and discussion. This 71-year-old man is transferred from [facility], for consideration of pacemaker therapy for [...] his paroxysmal to persistentatrial fibrillation, and elevated CHN5TO4-ZUAb score, CVA protection should be considered. ERASMO GONZALES MD documented in this encounter Plan of Treatment Upcoming Encounters Date Type Department Care Team (Late st Contact Info) Description 04/08/2024 1:40 PM EDT Office Visit Cardiology at [address] [address] Jay Urban MD [facility] [address] 04/15/2024 10:00 AM EDT Hospital Encounter Non-Invasive [place] [address] Arrived Scheduled Orders Name Type [...] Glucose, POC 120 65 - 199 mg/dL [facility] Comment: Supplemental ranges: <140 mg/dL before meals <180 mg/dL all other times of the day Blood 02/01/2022 1:13 PM EDT 02/01/2022 1:13 PM EDT Misael Ellis MD POINT OF CARE TEST O RDERABLES [facility] [place] [address] * (ABNORMAL) POCT Glucose (02/01/2022 11:21 AM EDT) Glucose, POC 254(H) 65 - 199 mg/dL [facility] Comment: Supplemental ranges: <140 mg/dL before meals <180 mg/dL all other times of the day Blood 02/01/2022 11:2 1 AM EDT 02/01/2022 11:21 AM EDT Misael Ellis MD POINT OF CARE TEST O TED Performing Organization Address [facility] Phone Number [facility] [place] [address] * (ABNORMAL) POCT Glucose (02/01/2022 11:09 AM EDT) Glucose, POC 218(H) 65 - 199 mg/dL [facility] Comment: Supplemental ranges: <140 mg/dL before meals <180 mg/dL all other times of the day Blood 02/01/2022 11:0 9 AM EDT 02/01/2022 11:09 AM EDT Misael Ellis MD POINT OF CARE TEST O TED Performing Organization Address [facility] Phone Number [facility] [place] [address] * XR Chest PA & Lateral (Generic) (02/01/2022 7:56 AM EDT) Anatomical Region Laterality Modality Chest N/A Digital Radiogra phy Impressions 02/01/2022 11:17 AM EDT No pneumothorax status post placement of right anterior chest wall dual-play leader. Thank you for letting us participate in the care of this patient. ??If you are a health care provider and have any questions regarding this report, please contact the number below. ??For patients who have questions please contact the health med care manager that requested your imaging first. ? Narrative [...] status post placement of right anterior chest walldual-play leader. Thank you for letting us participate in the care of this patient. If youare a health care provider and have any questions regarding this report,please contact the number below. For patients who have questions please contactthe health med care manager that requested your imaging first. Jay Urban MD IMG DX ORDERABLES * POCT Glucose (02/01/2022 7:32 AM EDT) [facility] Signature Glucose, POC 133 65 - 199 mg/dL [facility] Comment: Supplemental ranges: <140 mg/dL before meals <180 mg/dL all other times of the day Blood 02/01/2022 7:32 AM EDT 02/01/2022 7:32 AM EDT Misael Ellis MD POINT OF CARE TEST O RDERABLES Performing Organization Address City/[facility]/ZIP Co de Phone Number [facility] [place] [address] * Phosphorus (02/01/2022 3:29 AM EDT) Phosphorus 2.9 2.5 - 4.5 mg/dL [facility] Blood 02/01/2022 3:29 AM EDT 02/01/2022 3:43 AM EDT Narrative Resulting Agency Comment Spec In Lab Jay Urban MD CHEMISTRY ORDERABLES Performing Organization Address [facility] Co de Phone Number [facility] [place] [address] * Magnesium (02/01/2022 3:29 AM EDT) Magnesium 0.72 0.69 - 1.07 mmol/L [facility] Blood 02/01/2022 3:29 AM EDT 02/01/2022 3:43 AM EDT Narrative Resulting Agency Comment Spec In Lab Jay Urban MD CHEMISTRY ORDERABLES Performing Organization Address [facility] Co de Phone Number [facility] [place] [address] * (ABNORMAL) Basic Metabolic Panel (non-fasting) (02/01/2022 3:29 AM EDT) Glucose 104 65 - 199 mg/dL [facility] Comment:Diabetes: >=200 mg/d L plus symptoms Blood Urea Nitrogen 22(H) 10 - 20 mg/dL [facility] Creatinine 1.38 0.80 - 1.50 mg/dL [facility] Sodium 143 135 - 145 mmol/L [facility] Potassium 3.7 3.5 - 5.0 mmol/L [facility] Comment: Please note: ??Patients with WBC >100,000 may have falsely elevated Potassium levels. ??For accurate Potassium quantification in these patients send serum separator tube (gold top) for subsequent determinations. ??Contact the Clinical Chemistry Laboratory if there are any questions. Chloride 108(H) 98 - 107 mmol/L [facility] Carbon Dioxide 23 22 - 31 mmol/L [facility] Anion Gap 12 5 - 15 mmol/L [facility] Calcium 8.4(L) 8.5 - 10.5 mg/dL [facility] Est Glomerular Filtration Rate 54(L) >=60 mL/min/1. 73 m?? [facility] Comment: This patient's estimated GFR [...] In Lab Jay Urban MD CHEMISTRY ORDERABLES [facility] [place] [address] * POCT Glucose (01/31/2022 8:37 PM EDT) Glucose, POC 99 65 - 199 mg/dL [facility] Comment: Supplemental ranges: <140 mg/dL before meals <180 mg/dL all other times of the day Blood 01/31/2022 8:37 PM EDT 01/31/2022 8:37 PM EDT Misael Ellis MD POINT OF CARE TEST O RDERABLES Performing Organization Address [facility] Co de Phone Number [facility] [place] [address] * (ABNORMAL) POCT Glucose (01/31/2022 5:05 PM EDT) Glucose, POC 225(H) 65 - 199 mg/dL [facility] Comment: Supplemental ranges: <140 mg/dL before meals <180 mg/dL all other times of the day Blood 01/31/2022 5:05 PM EDT 01/31/2022 5:05 PM EDT Misael Ellis MD POINT OF CARE TEST O DENNYSERABG Performing Organization Address [facility] Co de Phone Number [facility] [place] [address] * POCT Glucose (01/31/2022 2:31 PM EDT) Glucose, POC 124 65 - 199 mg/dL [facility] Comment: Supplemental ranges: <140 mg/dL before meals <180 mg/dL all other times of the day Blood 01/31/2022 2:31 PM EDT 01/31/2022 2:31 PM EDT Misael Ellis MD POINT OF CARE TEST O TED Performing Organization Address [facility] Co de Phone Number [facility] [place] [address] * ELECTROPHYSIOLOGY PROCEDURE (01/31/2022 1:49 PM EDT) Anatomical Region Laterality Modality Other Narrative 01/31/2022 2:09 PM EDT [facility] ELECTROPHYSIOLOGY LABORATORY CARDIAC DEVICE OPERATIVE NOTE PATIENT: Ethel Akins DATE OF OPERATION: 01/31/2022 HAND DRAWER IN (Filler Sifter Machine): JAY URBAN MD, PhD TEAM PHYSICIAN: Anali Dominguez MD REFERRING KNIT GOODS WASHER: Niru Harrison MD PRE-PROCEDURE DIAGNOSIS/INDICATION(S): 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 Implantation of a permanent transvenous dual chamber pacemaker system ANESTHESIA: local and monitored anesthesia care INTRAVENOUS CONTRAST: 10 mL Omnipaque FLUOROSCOPY TIME & DOSE: 13.2 minutes, 119 Gycm2 ESTIMATED BLOOD LOSS: 15 mL COMPLICATIONS: none immediate IMPLANTED HARDWARE and FINAL LEAD PARAMETERS: Pulse generator: ? 1. [employer] [place] XT DR MRI Model #W1DR01, Serial # [id number] Atrial lead ?? 1. Medtronic CapsureFix Model# 5076-45 cm Serial# [id number] ? ? Bipolar, steroid-tipped, active-fixation IS-1 lead ? ? Access: ? Right Axillary vein ? ? Location ? Right atrial appendage ? ? F wave, pacemaker: ?? 0.6 mV ? ? Pacing threshold, pacemaker: N/A (pt in atrial flutter) ? ? Impedance, pacemaker: ??437 Ohms ? ? Diaphragmatic Stim. @ 8V: ??No Ventricular electrode: ?? Medtronic CapsureFix Model# 5076-52 cm Serial# [id number] ? ? Bipolar, steroid-tipped, active-fixation IS-1 lead [...] guidance using modified ??Seldinger micropuncture technique. A [place] ??wire was advanced to the right atrium under fluoroscopic guidance. Over the guide wire, a 9-Norwegian long peel-away Safe-sheath was inserted into the [...] Over the retained guide wire, a 7 Norwegian peel-away Safe-sheath was inserted into the vein [...] and participated in this procedure as the centralized traffic control operator. The patient's spouse Mara was updated immediately following the procedure. Recommend no systemic anticoagulation x 72 hours minimum. Electronically signed by: Jay Urban MD, PhD, [facility] Procedure Note Jay Urabn MD - 01/31/2022 [facility] ELECTROPHYSIOLOGY LABORATORY CARDIAC DEVICE OPERATIVE NOTE PATIENT: Ethel Akins DATE OF OPERATION: 01/31/2022 HAND DRAWER IN (Filler Sifter Machine): JAY URBAN MD, PhD TEAM PHYSICIAN: Anali Dominguez MD REFERRING KNIT GOODS WASHER: Niru Harrison MD PRE-PROCEDURE DIAGNOSIS/INDICATION(S): paroxysmal atrialfibrillation/flutter [...] XT DR MRI Model #W1DR01, Serial # [id number] Atrial lead 1. Medtronic CapsureFix Model# 5076-45 cm Serial# [id number] ? ? Bipolar, steroid-tipped, active-fixation IS-1 lead ? ? Access: Right Axillary vein ? ? Location Right atrial appendage ? ? F wave, pacemaker: 0.6 mV ? ? Pacing threshold, pacemaker: N/A (pt in atrial flutter) ? ? Impedance, pacemaker: 437 Ohms ? ? Diaphragmatic Stim. @ 8V: No Ventricular electrode: Medtronic CapsureFix Model# 5076-52 cm Serial# [id number] ? ? Bipolar, steroid-tipped, active-fixation IS-1 lead [...] fluoroscopic guidance usingmodified Seldinger micropuncture technique. A [place] wire was advanced tothe right atrium under fluoroscopic guidance. Over the guide wire, a 9-Norwegian long peel-away Safe-sheath was insertedinto the vein. [...] Over the retained guide wire, a 7 Norwegian peel-away Safe-sheath wasinserted into the vein and [...] and participated in this procedure as theprimary line o scribe operator. The patient's spouse Mara was updated immediately following theprocedure. Recommend no systemic anticoagulation x 72 hours minimum. Electronically signed by: Jay Urban MD, PhD, FACC Jay Urban MD EP PROCEDURE ORDERAB LES * POCT Glucose (01/31/2022 11:00 AM EDT) Glucose, POC 130 65 - 199 mg/dL [facility] Comment: Supplemental ranges: <140 mg/dL before meals <180 mg/dL all other times of the day Blood 01/31/2022 11:0 0 AM EDT 01/31/2022 11:00 AM EDT Misael Ellis MD POINT OF CARE TEST O RDERABLES [facility] [place] [address] * ECHO COMPLETE (01/31/2022 8:29 AM EDT) EF 46 HEARTLAB SYSTEM Anatomical Region Laterality Modality Cardiac Other 01/31/2022 7:24 AM EDT Narrative 01/31/2022 9:05 AM EDT ? Echocardiogram Report Name: ETHEL AKINS Patricia ?Study Date: 01/31/2022 07:24 AMBP: 118/95 mmHg ? [facility] : 1950 ? Height: 180 cm ? Account: [id number] Age: 71 yrs ? Weight: 100 kg Gender: Male ?BSA: 2.2 m2 Ordering Physician: NIRU HARRISON Referring Physician: NICOLÁS REAGAN Performed By: Monster Abraham RDCS Reason For Study: Arrhythmia Exam Location: [facility]. Interpretation Summary Left ventricle is of [...] function, the estimated PASP has increased. Procedure Complete-86120. Satisfactory quality. The rhythm is atrial fibrillation. [...] Date: 207:24 AMBP: 118/95 mmHg Patient Location: [address] : 1950 Height: 180 cm Account: [id number] Age: 71 yrs Weight: 100 kg Gender: Male BSA: 2.2 m2 Ordering Physician: NIRU HARRISON Referring Physician: NICOLÁS REAGAN Performed By: Monster Abraham RDCS Reason For Study: Arrhythmia Exam Location: [facility]. Interpretation Summary Left ventricle is of [...] systolic function, the estimated PASP hasincreased. Procedure Complete-65215. Satisfactory quality. The rhythm is atrial fibrillation. [...] EDT) Phosphorus 2.7 2.5 - 4.5 mg/dL [facility] Blood 01/31/2022 8:16 AM EDT 01/31/2022 8:38 AM EDT Narrative Resulting Agency Comment Spec In Lab Misael Ellis MD CHEMISTRY ORDERABLES Performing Organization Address [facility] Co de Phone Number [facility] [place] [address] * Magnesium (01/31/2022 8:16 AM EDT) Magnesium 0.82 0.69 - 1.07 mmol/L [facility] Blood 01/31/2022 8:16 AM EDT 01/31/2022 8:38 AM EDT Narrative Resulting Agency Comment Spec In Lab Misael Ellis MD CHEMISTRY ORDERABLES Performing Organization Address [facility] Co de Phone Number [facility] [place] [address] * (ABNORMAL) Basic Metabolic Panel (non-fasting) (01/31/2022 8:16 AM EDT) Glucose 137 65 - 199 mg/dL [facility] Comment:Diabetes: >=200 mg/d L plus symptoms Blood Urea Nitrogen 22(H) 10 - 20 mg/dL [facility] Creatinine 1.58(H) 0.80 - 1.50 mg/dL [facility] Sodium 143 135 - 145 mmol/L [facility] Potassium 3.9 3.5 - 5.0 mmol/L [facility] Comment: Please note: ??Patients with WBC >100,000 may have falsely elevated Potassium levels. ??For accurate Potassium quantification in these patients send serum separator tube (gold top) for subsequent determinations. ??Contact the Clinical Chemistry Laboratory if there are any questions. Chloride 108(H) 98 - 107 mmol/L [facility] Carbon Dioxide 24 22 - 31 mmol/L [facility] Anion Gap 11 5 - 15 mmol/L [facility] Calcium 8.9 8.5 - 10.5 mg/dL [facility] Est Glomerular Filtration Rate 46(L) >=60 mL/min/1. 73 m?? [facility] Comment: This patient's estimated GFR [...] Ellis MD CHEMISTRY ORDERABLES Performing Organization Address City/[facility]/ZIP Co de Phone Number [facility] [place] [address] * Tacrolimus level (01/31/2022 8:16 AM EDT) Tacrolimus 8.0 ng/mL [facility] Comment: Trough therapeutic range is [...] In Lab Misael Ellis MD CHEMISTRY ORDERABLES [facility] [place] [address] * POCT Glucose (01/31/2022 8:07 AM EDT) Glucose, POC 137 65 - 199 mg/dL [facility] Comment: Supplemental ranges: <140 mg/dL before meals <180 mg/dL all other times of the day Blood 01/31/2022 8:07 AM EDT 01/31/2022 8:07 AM EDT Misael Ellis MD POINT OF CARE TEST O RDERABLES Performing Organization Address [facility] Co de Phone Number [facility] [place] [address] * (ABNORMAL) Urinalysis Microscopic Exam (01/31/2022 1:30 AM EDT) RBC, Urine 4(H) 0 - 3 /HPF [facility] WBC, Urine 1 0 - 3 /HPF [facility] Squamous Epithelial Cells Raw Data, Urine 1 <=4 /HPF [facility] Hyaline Casts, Urine 2 0 - 2 /LPF [facility] Clean Catch Urine 01/31/2022 1:30 AM EDT 01/31/2022 1:42 AM EDT Narrative Resulting Agency Comment Spec In Lab Les Garcia MD URINE ORDERABL ES Performing Organization Address [facility] de Phone Number [facility] [place] [address] * Sodium, urine, random (01/31/2022 1:30 AM EDT) Sodium, Urine <20 mmol/L [facility] Urine 01/31/2022 1:30 AM EDT 01/31/2022 1:41 AM EDT Narrative Resulting Agency Comment Spec In Lab Misael Ellis MD URINE ORDERABLES Performing Organization Address [facility] Co de Phone Number [facility] [place] [address] * Creatinine, urine, random (01/31/2022 1:30 AM EDT) Creatinine, Urine 173 mg/dL [facility] Urine 01/31/2022 1:30 AM EDT 01/31/2022 1:41 AM EDT Narrative Resulting Agency Comment Spec In Lab Misael Ellis MD URINE ORDERABLES [facility] [place] [address] * (ABNORMAL) Urinalysis with reflex Culture (01/31/2022 [...] mg/dL [facility] pH, Urn (dipstick) 5.5 5.0 - 8.0 [facility] Blood, Urine Dipstick Negative Negative mg/dL [facility] Ketone, Urine Dipstick Trace(A) Negative mg/dL [facility] Nitrite, Urine Dipstick Negative Negative [facility] Leukocytes, Urine Dipstick Negative Negative [facility] Appearance, Urine Dipstick Clear Clear [facility] Specific Stanton Urine Automated 1.021 1.005 - 1.030 [facility] Color, Urine Dipstick Yellow Yellow [facility] Reflex to Culture No [facility] Clean Catch Urine 01/31/2022 1:30 AM EDT 01/31/2022 1:42 AM EDT Narrative Resulting Agency Comment Spec In Lab Misael Ellis MD URINE ORDERABLES Performing Organization Address City/[facility]/ZIP Co de Phone Number [facility] [place] [address] * POCT Glucose (01/31/2022 12:06 AM EDT) Glucose, POC 116 65 - 199 mg/dL [facility] Comment: Supplemental ranges: <140 mg/dL before meals <180 mg/dL all other times of the day Blood 01/31/2022 12:0 6 AM EDT 01/31/2022 12:06 AM EDT Misael Ellis MD POINT OF CARE TEST O RDERABLES Performing Organization Address [facility] Co de Phone Number [facility] [place] [address] * (ABNORMAL) Hemoglobin A1c (01/30/2022 9:45 PM EDT) Hemoglobin A1c 6.7(H) 4.3 - 5.6 % [facility] [...] Mellitus, Diabetes Care 2013; 36: Suppl. 1, S67-08 Estimated Average Glucose See note mg/dL [facility] Comment: Estimated Average Glucose not [...] into estimated average glucose values. ??Diabetes Care 2008:31(8):2509-4395. Blood Venous Draw / Unknown 01/30/2022 9:45 PM EDT 01/30/2022 11:41 PM EDT Narrative Resulting Agency Comment Spec In Lab Les Garcia MD CHEMISTRY ROCHELLE JENNINGS [facility] [place] [address] * (ABNORMAL) Differential, Automated (01/30/2022 9:45 PM EDT) Neutrophil % 63.5 % [facility] Neutrophil Absolute 5.52 1.70 - 6.10 x10(3)/mc L [facility] Lymph % 24.1 % [facility] Lymphocytes Abs 2.1 0.9 - 3.2 x10(3)/mc L [facility] Monocyte % 6.0 % [facility] Monocyte Abs 0.5 0.3 - 0.9 x10(3)/mc L [facility] Eos % 5.4 % [facility] Eosinophils Abs 0.5(H) 0.0 - 0.4 x10(3)/mc L [facility] Basophil % 0.8 % [facility] Baso Absolute 0.1 0.0 - 0.1 x10(3)/[facility] Immature Gran % 0.20 % [facility] Comment: Immature granulocytes(IG's)percentage and absolute count will include metamyelocytes, myelocytes, and promyelocytes. Blood smears from CBCs yielding IG's will be scanned manually for concordance. If this scan disagrees with the automated IG or if promyelocytes are noted, a manual differential will be performed. Immature Gran Absolute 0.02 0.00 - 0.04 x10(3)/[facility] Blood 01/30/2022 9:45 PM EDT 01/30/2022 9:45 PM EDT Narrative Resulting Agency Comment Spec In Lab Les Garcia MD HEMATOLOGY ORD ERABLES Performing Organization Address City/State/[facility] Co de Phone Number [facility] [place] [address] * Hemogram (01/30/2022 9:45 PM EDT) White Blood Cell 8.7 4.0 - 9.5 x10(3)/[facility] Red Blood Cell 4.62 4.58 - 5.54 x10(6)/[facility] Hemoglobin 14.3 13.7 - 16.5 g/dL [facility] Hematocrit 41.7 40.5 - 48.5 % [facility] Mean Cell Volume 90.3 82.9 - 93.1 fL [facility] Mean Cell Hemoglobin 31.0 27.5 - 32.1 pg [facility] Mean Cell Hemoglobin Concentration 34.3 32.0 - 35.7 g/dL [facility] Platelet 219 145 - 357 x10(3)/[facility] RDW Standard Deviation 42.4 36.0 - 45.0 fL [facility] RDW coefficient of variation 13.0 11.4 - 13.8 % [facility] Mean Platelet Volume 9.8 7.6 - 12.9 fL [facility] NRBC% auto 0.0 % [facility] NRBC Absolute 0.000 0.000 - 0.000 x10(3)/mcL [facility] Blood 01/30/2022 9:45 PM EDT 01/30/2022 9:45 PM EDT Narrative Resulting Agency Comment Spec In Lab Les Garcia MD HEMATOLOGY ORD ERABLES [facility] [place] [address] * Lipid Panel (Reflex Direct LDL) (01/30/2022 9:45 PM EDT) Cholesterol, Total 65 mg/dL [facility] Comment: Lower Risk: <200 mg/dL Average Risk: 200-239 mg/dL Higher Risk: >yc=877 mg/dL Triglyceride 124 mg/dL [facility] Comment: Average Risk/Lower Risk: <150 mg/dL Borderline High Risk: 150-199 mg/dL High Risk: 200-499 mg/dL Very High Risk: >it=582 mg/dL HDL Cholesterol 33 mg/dL [facility] Comment: Males: ?? Higher Risk: <40 mg/dL Females: ?? Higher Risk: <50 mg/dL LDL Cholesterol 7 mg/dL [facility] Comment: Lowest Risk: <100 mg/dL Lower Risk: 100-129 mg/dL Borderline High Risk: 130-159 mg/dL High Risk: 160-189 mg/dL Very High Risk: >kx=600 mg/dL Cholesterol/HDL Ratio 2.0 ratio [facility] Lipid Interpretation See Note [facility] Comment: Lipid management should be guided by a patient? s ASCVD risk, goals and preferences. ACC/AHA Guidelines recommend high intensity statin if clinical ASCVD or LDL greater than or equal to 190 mg/dL. http://Cintric.com/NAB-QQV-Ttvybapis Adults aged 40-75 with LDL 70-189 mg/dL should have their 10 year ASCVD risk estimated with the ACC/AHA ASCVD risk construction estimator http://tools.acc.org/OLOIM-Cmwd-Zbgagftkx/ Statin should be discussed if risk greater [...] Harrison MD CHEMISTRY ORDERABLES Performing Organization Address [facility] Co de Phone Number [facility] [place] [address] * (ABNORMAL) APTT (01/30/2022 9:45 PM EDT) Partial Thromboplastin Time 20(L) 25 - 37 sec [facility] Comment: Decreased clotting times may [...] MD HEMATOLOGY ORDERABLE S Performing Organization Address [facility] Co de Phone Number [facility] [place] [address] * (ABNORMAL) Prothrombin Time (01/30/2022 9:45 PM EDT) Prothrombin Time 12.9(H) 9.4 - 12.5 sec [facility] International Normalization Ratio 1.1 [facility] Comment: An INR <2.0 [...] MD HEMATOLOGY ORDERABLE S Performing Organization Address [facility]/ZIP Co de Phone Number [facility] [place] [address] * (ABNORMAL) Hepatic Function Panel (01/30/2022 9:45 PM EDT) Protein, Total 6.2 6.1 - 8.0 g/dL [facility] Albumin 3.8 3.2 - 5.2 g/dL [facility] Aspartate Aminotransferase 17 0 - 39 unit/L [facility] Alanine Aminotransferase 19 0 - 55 unit/L [facility] Alkaline Phosphatase 61 40 - 130 unit/L [facility] Bilirubin, Total 2.4(H) 0.2 - 1.3 mg/dL [facility] Bilirubin, Direct 0.2 0.0 - 0.3 mg/dL [facility] Blood 01/30/2022 9:45 PM EDT 01/30/2022 9:45 PM EDT Narrative Resulting Agency Comment Spec In Lab Niru Harrison MD CHEMISTRY ORDERABLES Performing Organization Address [facility]/ZIP Co de Phone Number [facility] [place] [address] * (ABNORMAL) pro-Brain Natriuretic Peptide (01/30/2022 9:45 PM EDT) NT-proBNP 4,113(H) <=124 pg/mL [facility] Blood 01/30/2022 9:45 PM EDT 01/30/2022 9:45 PM EDT Narrative Resulting Agency Comment Spec In Lab Niru Harrison MD CHEMISTRY ORDERABLES Performing Organization Address [facility]/ZIP Co de Phone Number [facility] [place] [address] * TSH (01/30/2022 9:45 PM EDT) Thyroid Stimulating Hormone 3.44 0.27 - 4.20 mcIU/mL [facility] Comment: Reference Interval (mcIU/mL): Females: ??First Trimester: 0.23-3.88 ??Second Trimester: 0.22-3.90 ??Third Trimester: 0.44-4.66 Blood 01/30/2022 9:45 PM EDT 01/30/2022 9:45 PM EDT Narrative Resulting Agency Comment Spec In Lab Niru Harrison MD CHEMISTRY ORDERABLES Performing Organization Address [facility] Co de Phone Number [facility] [place] [address] * Phosphorus (01/30/2022 9:45 PM EDT) Phosphorus 3.3 2.5 - 4.5 mg/dL [facility] Blood 01/30/2022 9:45 PM EDT 01/30/2022 9:45 PM EDT Narrative Resulting Agency Comment Spec In Lab Niru Harrison MD CHEMISTRY ORDERABLES Performing Organization Address [facility] Co de Phone Number [facility] [place] [address] * (ABNORMAL) Magnesium (01/30/2022 9:45 PM EDT) Magnesium 0.68(L) 0.69 - 1.07 mmol/L [facility] Blood 01/30/2022 9:45 PM EDT 01/30/2022 9:45 PM EDT Narrative Resulting Agency Comment Spec In Lab Niru Harrison MD CHEMISTRY ORDERABLES [facility] [place] [address] * (ABNORMAL) Basic Metabolic Panel (non-fasting) (01/30/2022 9:45 PM EDT) Glucose 177 65 - 199 mg/dL [facility] Comment:Diabetes: >=200 mg/d L plus symptoms Blood Urea Nitrogen 23(H) 10 - 20 mg/dL [facility] Creatinine 1.87(H) 0.80 - 1.50 mg/dL [facility] Sodium 144 135 - 145 mmol/L [facility] Potassium 3.6 3.5 - 5.0 mmol/L [facility] Comment: Please note: ??Patients with WBC >100,000 may have falsely elevated Potassium levels. ??For accurate Potassium quantification in these patients send serum separator tube (gold top) for subsequent determinations. ??Contact the Clinical Chemistry Laboratory if there are any questions. Chloride 106 98 - 107 mmol/L [facility] Carbon Dioxide 23 22 - 31 mmol/L [facility] Anion Gap 15 5 - 15 mmol/L [facility] Calcium 9.0 8.5 - 10.5 mg/dL [facility] Est Glomerular Filtration Rate 37(L) >=60 mL/min/1. 73 m?? [facility] Comment: This patient's estimated GFR [...] In Lab Niru Harrison MD CHEMISTRY ORDERABLES [facility] [place] [address] * EKG 12 Lead (01/30/2022 7:53 PM EDT) Ventricular rate 95 BPM MUSE SYSTEM Atrial Rate 277 BPM MUSE SYSTEM QRS Duration 108 ms MUSE SYSTEM Q-T Interval 398 ms MUSE SYSTEM QTC Calculated (Bezet) 500 ms MUSE SYSTEM Calculated R Shirley -58 degrees MUSE SYSTEM Calculated T Shirley 72 degrees MUSE SYSTEM INTERPRETATION Atrial flutter with variable A-V block with premature ventricular or aberrantly conducted complexes Left anterior fascicular block Minimal voltage criteria for LVH, may be normal variant ( [place] product ) Prolonged QTc Abnormal ECG When compared with ECG of 14-MAR-2021 15:13, Atrial flutter has replaced Sinus rhythm Vent. rate has increased BY ??35 BPM qtc has lengthened Confirmed by MD Kelly Danette ([id number]) on 01/31/2022 4:01:28 PM MUSE SYSTEM 01/30/2022 7:53 PM EDT 01/31/2022 4:01 PM EDT Niru Harrison MD ECG ORDERABLES Performing Organization Address City/[facility]/ZIP Co de Phone Number MUSE SYSTEM documented [...] to induce or maintain moderate sedation per [facility] Moderate Sedation Policy for the duration of the EP procedure., As needed to induce or maintain moderate sedation per [facility] Moderate Sedation Policy for the duration of [...] to induce or maintain moderate sedation per [facility] Moderate Sedation Policy for the duration of the EP procedure., As needed to induce or maintain moderate sedation per [facility] Moderate Sedation Policy for the duration of [...] Discontinued, Routine 0841 (Given - Provider: Roseanna Moss, RN)1117 ([facility] Hold - Provider: Admin Adt - Reason: Transfer to a Procedural area)1403 ([facility] Unhold - Provider: Admin Adt) 0836 (Given - Provider: Richard Lobo, JADEN) aspirin EC tablet 81 mg 81 mg, Oral, DAILY, First dose (after last modification) on Thu01/30/22 at 204, Until Discontinued, Routine 2104 (Given - Provider: Carmela Alicia, JADEN) 0841 (Given - Provider: Roseanna Moss, JADEN)1117 ([facility] Hold - Provider: Admin Adt - Reason: Transfer to a Procedural area)1403 ([facility] Unhold - Provider: Admin Adt) 0836 (Given - Provider: Richard Lobo, JADEN) atorvastatin (Lipitor) tablet 40 mg 40 mg, Oral, EVERY EVENING, First dose on Thu01/30/22 at 2030, Until Discontinued, Routine 2058 (Given - Provider: Carmela Alicia, JADEN) 1117 ([facility] Hold - Provider: Admin Adt - Reason: Transfer to a Procedural area)1403 ([facility] Unhold - Provider: Admin Adt)1702 (Given - Provider: Roseanna Moss, JADEN) BUpivacaine (pf) (Marcaine) (5 mg/mL) 0.5% injection 150 mg (COMPLETED) 150 mg (30 mL), Subcutaneous, ONCE, 1 dose, On Thu01/31/22 at 1130, EP (Intra-Procedure), Routine 1207 (Given - Provider: Steffen Mora RN) calciTRIoL (Rocaltrol) capsule 0.5 mcg 0.5 mcg, Oral, DAILY, First dose on Thu01/31/22 at 0900, Until Discontinued, Routine 0841 (Given - Provider: Roseanna Moss, JADEN)111 (SEP [...] Carmela Alicia, JADEN) 0840 (Given - Provider: Roseanna Moss RN)1117 [...] Provider: Admin Adt)2054 (Given - Provider: Sreedhar ArambulaJADEN) insulin lispro (HumaLOG;Admelog) (100 unit/mL) subcutaneous injection [...] Provider: Roseanna Moss RN - Reason: NPO)1403 ([facility] Unhold [...] 0503 (Given - Provider: Carmela Alicia RN)1117 ([facility] Hold - Provider: Admin Adt - Reason: [...] Minutes 0005 (New Bag - Provider: Carmela Alicia RN)0205 (Stopped - Provider: Carmela Alicia RN) [...] SBP <90, Routine 1747 (Given - Provider: Roseanna Moss, JADEN)2349 (Given - Provider: Sreedhar Arambula, JADEN) 0557 (Given - Provider: Sreedhar Arambula, RN)1132 (Given - Provider: Richard Lobo, RN) mycophenolate (Cellcept) capsule 250 mg 250 mg, Oral, 2 TIMES DAILY, First dose on Thu01/30/22 at 2100, Until Discontinued, DO NOT CRUSH OR OPEN, Routine 2057 (Given - Provider: Carmela Alicia, JADEN) 0841 (Given - Provider: Roseanna Moss, JADEN)111 (SEP [...] 2058 (Given - Provider: Carmela Alicia, JADEN) 0842 (Given - Provider: Roseanna Moss, JADEN)111 [...] (Given - Provider: Carmela Alicia RN) 1117 ([facility] Hold - Provider: Admin Adt - Reason: Transfer to a Procedural area)1403 ([facility] Unhold - Provider: Admin Adt)2052 (Given - Provider: Sreedhar Arambula RN) tacrolimus (Prograf) capsule 2 mg 2 mg, Oral, DAILY, First dose on Thu01/31/22 at 0900, Until Discontinued, DO NOT SPLIT, CRUSH OR OPEN, Routine 0840 (Given - Provider: Roseanna Moss RN)111 ([facility] Hold - Provider: Admin Adt - Reason: Transfer to a Procedural area)1403 ([facility] Unhold - Provider: Admin Adt) 0836 (Given - Provider: Richard Lobo RN) tamsulosin (Flomax) capsule 0.4 mg 0.4 mg, Oral, DAILY, First dose on Thu01/31/22 at 0900, Until Discontinued, DO NOT CRUSH OR OPEN, Routine 0841 (Given - Provider: Roseanna Moss RN)111 ([facility] Hold - Provider: Admin Adt - Reason: Transfer to a Procedural area)1403 ([facility] Unhold - Provider: Admin Adt) 0836 (Given [...] Unit), Routine 1702 (Given - Provider: Roseanna Moss, JADEN)2349 (Given [...] to induce or maintain moderate sedation per [facility] Moderate Sedation Policy for the duration of the EP procedure., As needed to induce or maintain moderate sedation per [facility] Moderate Sedation Policy for the duration of [...] Mora RN)1204 (Given - Provider: Steffen Mora RN)1216 (Given - Provider: Steffen Mora, JADEN)1222 [...] to induce or maintain moderate sedation per [facility] Moderate Sedation Policy for the duration of the EP procedure., As needed to induce or maintain moderate sedation per [facility] Moderate Sedation Policy for the duration of [...] - Reason: Transfer to a Procedural area)1403 ([facility] Unhold - Provider: Admin Adt) sodium chloride [...] - Reason: Transfer to a Procedural area)1403 ([facility] Unhold - Provider: Admin Adt) sodium chloride [...] mMol/L. documented in this encounter Care Teams Displayer Relationship Specialty Start Date End Date Urbano Denis DO [address] [place] [address] PCP - General 09/03/12 03/17/22 Ruchi Valles RN Nurse Clinic Transplant Surgery 07/30/15 documented as of this encounter
--- OUTSIDE RECORDS SUMMARY | 2024-04-04 13:56 | XMS_ITS | Encounter Summary ---
Author Organization [facility] [place] [address] Care Team Providers Care Clinical Laboratory Aides Teacher Name Role Phone Adeel Urbano KIRBY Primary Care Provider [phone] Encounter Details Date Type Department Care Team (Late st Contact Info) Description 03/14/2021 Telephone [place] [address] Elsi Hernandez Social History Tobacco Use Types [...] PM EDT Office Visit Cardiology at [address] [phone] Jay Urban MD [facility] [place] [address] 04/15/2024 10:00 AM EDT Hospital Encounter Non-[place] [address] Arrived documented as of this [...] filedocumented in this encounter Care Teams Clinical Laboratory Aides Teacher Relationship Specialty Start Date End Date Urbano Denis DO [address] [place] [address] [address] [place] [address] PCP - General 09/03/12 03/17/22 Ruchi Valles RN Nurse Clinic Transplant Surgery 07/30/15 documented as of this encounter
--- OUTSIDE RECORDS SUMMARY | 2024-04-04 13:56 | XMS_ITS | Encounter Summary ---
Author Organization [facility] [place] [address] Care Team Providers Care Icu Staff Nurse Name Role Phone AdeelUrbano toscano Primary Care Provider Encounter Details Date Type Department Care Team (Late st Contact Info) Description 01/30/2022 12:20 PM EDT Ancillary Procedure Radiology Library at [facility] [place] [address] Nik Light MD [facility] [place] [address] Social History Tobacco Use Types Packs/Day Years [...] PM EDT Office Visit Cardiology at [address] [place] [phone] Jay Urban MD [facility] [place] [address] 04/15/2024 10:00 AM EDT Hospital Encounter Non-[place]vasive [place] [phone] Arrived documented as of this encounter Goals [...] DX Chest (01/30/2022 12:16 PM EDT) Narrative RAD - 01/30/2022 12:16 PM EDT This exam is auto-finalizing. It's purpose is for storage only. Nik Light MD IMG FILM LIBRARY ORD ERABLES [place], [place] documented in this encounter Visit Diagnoses Not on filedocumented in this encounter Care Teams Icu Staff Nurse Relationship Specialty Start Date End Date Urbano Denis DO [address] [place] [address] PCP - General 09/03/12 03/17/22 Ruchi Valles RN Nurse Clinic Transplant Surgery 07/30/15 documented as of this encounter
--- OUTSIDE RECORDS SUMMARY | 2024-04-04 13:56 | XMS_ITS | Encounter Summary ---
[place] [address] Care Team Providers Care Monotypist Name Role Phone Adeel, Urbano KIRBY Primary Care Provider [phone] Reason for Referral * Consultation (Routine) - Closed Specialty Diagnoses / Procedures Referred By Contac t Referred To Contact Neurology Diagnoses Cerebrovascular accident (CVA), unspecified mechanism Byron Brown MD [facility] [place] [address] Joseph Cortés MD [facility] [place] [address] Referral ID Status Reason Start Date Expiration Date V isits Requested Visits Authorized [id number] Closed Consult, Test & Treat 03/14/2021 03/14/2022 1 1 * Diagnostic Test (Routine) - Closed Specialty Diagnoses / Procedures Referred By Contac t Referred To Contact Cardiology Diagnoses Atrial fibrillation with RVR Procedures Ziopatch 48 Hrs-15 Days Byron Brown MD [facility] [place] [address] [facility] [place] [address] Referral ID Status Reason Start Date Expiration Date V isits Requested Visits Authorized [id number] Closed Specialty Service Requested 03/15/2021 05/13/2021 1 1 Encounter Details Date Type Department Care Team (Late st Contact Info) Description 03/14/2021 2:40 PM EDT Office Visit Cardiology at [address] [phone] Byron Brown MD [facility] [place] [address] Atrial fibrillation with RVR - had flutter [...] the original note were not included. Formerly [facility] [place] [address] CARDIOLOGY/ VASCULAR OUTPATIENT NOTE Ethel P Tubiello Urbano Adeel, DO OFFICE VISIT : From the recent phone call to [facility] (02/2021): 70 yo male with hx kidney transplant in 2016, atrial fibrillation/flutter, and CAD s/p PCI (2018) who was recently admitted to [facility] with a brain bleed. We do not have records of this. Pt's is calling saying that he was discharged on Thursday at which time eliquis and aspirin werestopped and his BP regimen was changed around. Today BP was 138/101 about 1 hour after giving hydralazine (started at [facility]) for bleed. Called [facility] who instructed her to repeat BP which [...] significant cardiac history but was admitted to [facility] in January 2019 with newly diagnosed AFlutter [...] resolved tachymyopathy. Continue with BB. SUBJECTIVE: Mr. Akins returns to the clinic for follow-up with [...] Skin: no new rashes Results for ETHEL AKINS ( ) as of 03/14/2021 18:10 Ref. [...] kidney transplant in 2016. ? Admitted to [facility] in January 2019 with newly diagnosed AFlutter [...] in -follow-up with neuro Byron Brown MD, [facility] Cardiovascular Medicine [facility] Clinic scheduling: Trinidad John [phone] Clinic Team Nurse: Anel Proctor RN [phone] The total time associated with this visit was 40 minutes. documented in this encounter Plan of Treatment Upcoming Encounters Date Type Department Care Team (Late st Contact Info) Description 04/08/2024 1:40 PM EDT Office Visit Cardiology at [address] [phone] Jay Urban MD [facility] [place] [address] 04/15/2024 10:00 AM EDT Hospital Encounter Non[place] [phone] Arrived Scheduled Referrals Name Type Priority Associated Diagnoses Orde r Schedule Referral to Neurology Outpatient Referral Routine Cerebrovascular accident (CVA), unspecified mechanism Ordered: 03/14/2021 documented as of this encounter Goals Goal Patient Goal Type Associated Problems Recent Progress Patient-Stated? Author [facility] Medication Compliance and Understanding Patient Facing Action Plan On track( 017 10:41 AM EDT) No Selena Cisneros, [facility] Note: Patient Goal: Clear [...] Modality Other Narrative 04/03/2021 10:27 AM EDT [facility] ? Ambulatory Cardiac Event Monitor Report Duration of recordind 23h Summary Data Predominant rhythm: Predominant underlying rhythm was Sinus Rhythm. Minimum sinus rate: 41 bpm ?? Maximum sinus rate: 82 bpm ? Average heart rate: 57 bpm Atrial fibrillation: ? None Pauses: ? None Ectopic beats Isolated SVEs were frequent (6.6%, [address]2624), SVE Couplets were rare (<1.0%, 4420), and [...] (Bezet) 450 ms MUSE SYSTEM Calculated P [place] 69 degrees MUSE SYSTEM Calculated R [place] -69 degrees MUSE SYSTEM Calculated T [place] 82 degrees MUSE SYSTEM INTERPRETATION Sinus rhythm with 1st degree A-V block with Premature atrial complexes Left anterior fascicular block Minimal voltage criteria for LVH, may be normal variant ( Abrrett product ) Abnormal ECG When compared with [...] fibrillation documented in this encounter Care Teams Monotypist Relationship Specialty Start Date End Date Urbano Denis DO [address] [place] [address] PCP - General 09/03/12 03/17/22 Ruchi Valles RN Nurse Clinic Transplant Surgery 07/30/15 documented as of this encounter
--- OUTSIDE RECORDS SUMMARY | 2024-04-04 13:56 | XMS_ITS | Encounter Summary ---
Author Organization [facility] [place] [address] Care Team Providers Care Hypercil Core Transformer Assembler Name Role Phone Urbano Denis DO Primary Care Provider Encounter Details Date Type Department Care Team (Late st Contact Info) Description 12/30/2021 External Results [place] [address] Social History Tobacco Use Types [...] 1:40 PM EDT Office Visit Cardiology at [address] [phone] Jay Urban MD [facility] [place] [address] 04/15/2024 10:00 AM EDT Hospital Encounter Non-Invasive [place] [address] Arrived documented as of this [...] Scan Doc: Lab (12/24/2021) Historical Provider MD MEDIA MGR SCAN EX T ORDR/RSLT documented in this encounter Visit Diagnoses Not on filedocumented in this encounter Care Teams Hypercil Core Transformer Assembler Relationship Specialty Start Date End Date Urbano Denis DO [address] [place] [address] PCP - General 09/03/12 03/17/22 Ruchi Valles RN Nurse Clinic Transplant Surgery 07/30/15 documented as of this encounter
--- OUTSIDE RECORDS SUMMARY | 2024-04-04 13:56 | XMS_ITS | Encounter Summary ---
Author Organization [facility] [place] [address] Care Team Providers Care Paper Final Inspector Name Role Phone Urbano Denis DO Primary Care Provider [phone] Encounter Details Date Type Department Care Team (Late st Contact Info) Description 01/10/2022 [place] [phone] Javi Gamez MD [facility] [place] [address] Social History Tobacco Use Types Packs/Day Years [...] for ICH. Per provider Dyan Easton at [facility], the patient presented with mild dizziness, was [...] to the caudate head. Brain MRI from [facility] shows the deep hemorrhage in the [...] 1:40 PM EDT Office Visit Cardiology at [address] [place] [address] Jay Urban MD [facility] [place] [address] 04/15/2024 10:00 AM EDT Hospital Encounter Non-[place] [phone] Arrived documented as of this encounter Goals [...] on filedocumented in this encounter Care Teams Paper Final Inspector Relationship Specialty Start Date End Date Urbano Denis DO [address] [place] [address] [address] [facility] [address] [place] [address] PCP - General 09/03/12 03/17/22 Ruchi Valles RN Nurse Clinic Transplant Surgery 07/30/15 documented as of this encounter
--- OUTSIDE RECORDS SUMMARY | 2024-04-04 13:56 | XMS_ITS | Encounter Summary ---
Author Organization [facility] [place] [address] Care Team Providers Care Product Lister Name Role Phone Adeel Urbano KIRBY Primary Care Provider Encounter Details Date Type Department Care Team (Late st Contact Info) Description 01/30/2022 External [place] [address] Social History Tobacco Use Types [...] 1:40 PM EDT Office Visit Cardiology at [address] [phone] Jay Urban MD [facility] [place] [address] 04/15/2024 10:00 AM EDT Hospital Encounter Non-Invasive [place] [address] Arrived documented as of this [...] * Scan Doc: ECG (01/30/2022) Historical Provider MEDIA MGR SCAN EX T ORDR/RSLT documented in this encounter Visit Diagnoses Not on filedocumented in this encounter Care Teams Product Lister Relationship Specialty Start Date End Date Urbano Denis DO [address] [place] [address] PCP - General 09/03/12 03/17/22 Ruchi Valles RN Nurse Clinic Transplant Surgery 07/30/15 documented as of this encounter
--- OUTSIDE RECORDS SUMMARY | 2024-04-04 13:56 | XMS_ITS | Encounter Summary ---
Author Organization [place] [id number] Care Team Providers Care Fish Boning Machine Feeder Name Role Phone Adeel Urbano KIRBY Primary Care Provider Encounter Details Date Type Department Care Team (Late st Contact Info) Description 03/15/2021 Telephone Cardiology at [address] [phone] Monica Roberson, RN Social History [...] BID Monica Roberson RN Cardiology Clinic at [facility] [phone] documented in this encounter Plan of Treatment Upcoming Encounters Date Type Department Care Team (Late st Contact Info) Description 04/08/2024 1:40 PM EDT Office Visit Cardiology at [address] [phone] Jay Urban MD [facility] [place] [address] 04/15/2024 10:00 AM EDT Hospital Encounter [place] [phone] Arrived documented as of this encounter Goals Goal Patient Goal Type Associated Problems Recent Progress Patient-Stated? Author Home Medication Compliance and Understanding Patient Facing Action Plan On track( 017 10:41 AM EDT) Selena Scott, [facility] Note: Patient Goal: Clear hepatitis C Timeframe to meet goal: within 12 weeks of therapy documented as of this encounter Visit Diagnoses Not on filedocumented in this encounter Care Teams Fish Boning Machine Feeder Relationship Specialty Start Date End Date Urbano Denis DO [address] [place] [address] PCP - General 09/03/12 03/17/22 Ruchi Valles RN Nurse Clinic Transplant Surgery 07/30/15 documented as of this encounter
--- OUTSIDE RECORDS SUMMARY | 2024-04-04 13:56 | XMS_ITS | Encounter Summary ---
Author Organization Formerly [facility] [place] [address] Care Team Providers Care Composite Laminator Name Role Phone Urbano Denis DO Primary Care Provider [phone] Encounter Details Date Type Department Care Team (Latest Contact Info) Description 06/19/2021 11:05 AM EST Laboratory Appointment Lab [address] [place] [address] H/O kidney transplant Social History Tobacco Use [...] PM EDT Office Visit Cardiology at [address] [address] Jay Urban MD [facility] [address] [place] [address] 04/15/2024 10:00 AM EDT Hospital Encounter Non-[place] [address] Arrived documented as of this [...] * Differential, Automated (06/19/2021 11:27 AM EST) Neutrophil % 68.2 % [facility] Neutrophil Absolute 5.47 1.70 - 6.10 x10(3)/[facility] Lymph % 19.1 % [facility] Lymphocytes Abs 1.5 0.9 - 3.2 x10(3)/[facility] Monocyte % 8.2 % [facility] Monocyte Abs 0.7 0.3 - 0.9 x10(3)/[facility] LABOR[facility] Eos % 3.4 % [facility] Eosinophils Abs 0.3 0.0 - 0.4 x10(3)/[facility] Basophil % 0.9 % [facility] Baso Absolute 0.1 0.0 - 0.1 x10(3)/[facility] LABOR[facility]ORY Immature Gran % 0.20 % [facility] Comment: Immature granulocytes(IG's)percentage and absolute count will include metamyelocytes, myelocytes, and promyelocytes. Blood smears from CBCs yielding IG's will be scanned manually for concordance. If this scan disagrees with the automated IG or if promyelocytes are noted, a manual differential will be performed. Immature Gran Absolute 0.02 0.00 - 0.04 x10(3)/[facility] LAB[facility] Blood 06/19/2021 11:2 7 AM EST 06/19/2021 11:42 AM EST Narrative Resulting Agency Comment Spec In Lab Tal Eagle MD HEMATOLOGY ORDERA BLES [facility] [place] [address] * Hemogram (06/19/2021 11:27 AM EST) Pathologist [facility] White Blood Cell 8.0 4.0 - 9.5 x10(3)/[facility] Red Blood Cell 5.11 4.58 - 5.54 x10(6)/[facility] Hemoglobin 15.6 13.7 - 16.5 g/dL [facility] Hematocrit 45.7 40.5 - 48.5 % [facility] Mean Cell Volume 89.4 82.9 - 93.1 fL [facility] Mean Cell Hemoglobin 30.5 27.5 - 32.1 pg [facility] Mean Cell Hemoglobin Concentration 34.1 32.0 - 35.7 g/dL [facility] Platelet 249 145 - 357 x10(3)/[facility] LABORATORY RDW Standard Deviation 41.5 36.0 - 45.0 [facility]ORATORY RDW coefficient of variation 12.7 11.4 - 13.8 % [facility] Mean Platelet Volume 9.5 7.6 - 12.9 fL [facility] NRBC% auto 0.0 % [facility] NRBC Absolute 0.000 0.000 - 0.000 x10(3)/[facility] Blood 06/19/2021 11:2 7 AM EST 06/19/2021 11:42 AM EST Narrative Resulting Agency Comment Spec In Lab Tal Eagle MD HEMATOLOGY ORDERA BLES [facility] [place] [address] * Reticulocyte Count (06/19/2021 11:27 AM EST) Pathologist [facility] Reticulocyte % 2.0 0.7 - 2.6 % [facility] Retic Abs # 0.100 0.030 - 0.120 x10(6)/[facility] Immature Retic% 7.0 0.0 - 15.6 % [facility] Reticulated Hgb 35.3 31.3 - 40.2 pg [facility] Blood 06/19/2021 11:2 7 AM EST 06/19/2021 11:42 AM EST Narrative Resulting Agency Comment Spec In Lab Tal Eagle MD HEMATOLOGY ORDERA BLES [facility] [place] [address] * (ABNORMAL) Comprehensive metabolic panel (non-fasting) (06/19/2021 11:27 AM EST) Glucose 109 65 - 199 mg/dL [facility] Comment:Diabetes: >=200 mg/d L plus symptoms Blood Urea Nitrogen 23(H) 10 - 20 mg/dL [facility] Creatinine 1.39 0.80 - 1.50 mg/dL [facility] Sodium 142 135 - 145 mmol/L [facility] Potassium 4.4 3.5 - 5.0 mmol/L [facility] Comment: Please note: ??Patients with WBC >100,000 may have falsely elevated Potassium levels. ??For accurate Potassium quantification in these patients send serum separator tube (gold top) for subsequent determinations. ??Contact the Clinical Chemistry Laboratory if there are any questions. Chloride 105 98 - 107 mmol/L [facility] Carbon Dioxide 29 22 - 31 mmol/L [facility] Anion Gap 8 5 - 15 mmol/L [facility] Calcium 10.0 8.5 - 10.5 mg/dL [facility] Protein, Total 6.9 6.1 - 8.0 g/dL [facility] Albumin 4.2 3.2 - 5.2 g/dL [facility] Aspartate Aminotransferase 19 0 - 39 unit/L [facility] Alanine Aminotransferase 22 0 - 55 unit/L [facility] Alkaline Phosphatase 69 40 - 130 unit/L [facility] Bilirubin, Total 2.5(H) 0.2 - 1.3 mg/dL [facility] Est Glomerular Filtration Rate 50(L) >=60 mL/min/1. 73 m?? [facility] Comment: This patient? s estimated glomerular [...] MD CHEMISTRY ORDERAB LES [facility] [place] [address] * Cholesterol, total (06/19/2021 11:27 AM EST) Cholesterol, Total 90 mg/dL [facility] Comment: Lower Risk: <200 mg/dL Average Risk: 200-239 mg/dL Higher Risk: >le=696 mg/dL Lipid Interpretation See Note [facility] Comment: Lipid management should be guided by a patient? s ASCVD risk, goals and preferences. ACC/AHA Guidelines recommend high intensity statin if clinical ASCVD or LDL greater than or equal to 190 mg/dL. http://Fippexurl.com/KZL-KWO-Wjrhqrugk Adults aged 40-75 with LDL 70-189 mg/dL should have their 10 year ASCVD risk estimated with the ACC/AHA ASCVD risk insulation estimator http://tools.acc.org/HXLIL-Zgpu-Vnablvexp/ Statin should be discussed if risk greater [...] CHEMISTRY ORDERAB LES Performing Organization Address [facility] Co de Phone Number [facility] [place] [address] * Magnesium (06/19/2021 11:27 AM EST) Magnesium 0.74 0.69 - 1.07 mmol/L [facility] Blood 06/19/2021 11:2 7 AM EST 06/19/2021 11:42 AM EST Narrative Resulting Agency Comment Spec In Lab Tal Eagle MD CHEMISTRY ORDERAB LES Performing Organization Address [facility] de Phone Number [facility] [place] [address] * Phosphorus (06/19/2021 11:27 AM EST) Phosphorus 2.6 2.5 - 4.5 mg/dL [facility] Blood 06/19/2021 11:2 7 AM EST 06/19/2021 11:42 AM EST Narrative Resulting Agency Comment Spec In Lab Tal Eagle MD CHEMISTRY ORDERAB LES Performing Organization Address [facility] Co de Phone Number [facility] [place] [address] * Uric acid (06/19/2021 11:27 AM EST) Uric Acid 6.7 3.5 - 8.5 mg/dL [facility] Blood 06/19/2021 11:2 7 AM EST 06/19/2021 11:42 AM EST Narrative Resulting Agency Comment Spec In Lab Tal Eagle MD CHEMISTRY ORDERAB LES Performing Organization Address City/[facility] Co de Phone Number [facility] [place] [address] * Tacrolimus level (06/19/2021 11:27 AM EST) [facility] Tacrolimus 5.0 ng/mL [facility] Comment: Trough therapeutic [...] CHEMISTRY ORDERAB LES Performing Organization Address [facility] Co de Phone Number [facility] [place] [address] * BKV Quant Blood (06/19/2021 11:27 AM EST) [facility] BKV Blood Result Not Detected [facility] BKV Blood Interp BK Virus Plasma Result Interpretation Result: BK Virus not detected Specimen type: plasma Assay Range: 2.80-7.80 log copies/mL (6.28x10^2 - 6.28x10^7 copies/mL) Methods: Quantitative real-time polymerase chain reaction (PCR) of viral DNA isolated from plasma was performed using [employer] BKV analyte-specific reagents and the Our Security Team System that automates both nucleic acid isolation [...] its performance characteristics determined by the Clinical [employer] ([facility] at [facility]. It has not been cleared or approved by the FDA. The laboratory is regulated under CLIA as qualified to perform high-complexity testing. This test is used for clinical purposes. It should not be regarded as investigational or for research. [facility] Comment: [VERIFIED DATE]06.27.21 Verified By:Kassi Friedman (Electronic Signature) Blood 06/19/2021 11:2 7 AM EST 06/19/2021 2:04 PM EST Narrative Resulting Agency Comment Spec In Lab Tal Eagle MD MOLECULAR ORDERAB LES Performing Organization Address City/[facility]/ZIP Co de Phone Number [facility] [place] [address] * Urinalysis Microscopic Exam (06/19/2021 11:22 AM EST) RBC, Urine 2 0 - 3 /HPF [facility] WBC, Urine 0 0 - 3 /HPF [facility] Clean Catch Urine 06/19/2021 11:22 AM EST 06/19/2021 12:04 PM EST Narrative Resulting Agency Comment Spec In Lab Tal Eagle MD URINE ORDERABLES Performing Organization Address City/[facility]/ZIP Co de Phone Number [facility] [place] [address] * (ABNORMAL) Urinalysis with reflex Culture (06/19/2021 [...] HOSPITAL LABORATORY Leukocytes, Urine Dipstick Negative Negative [facility] Appearance, Urine Dipstick Clear Clear [facility] Specific [place] Urine Automated 1.023 1.005 - 1.030 [facility] Color, Urine Dipstick Yellow Yellow [facility] Reflex to Culture No [facility] Clean Catch Urine 06/19/2021 11:22 AM EST 06/19/2021 12:04 PM EST Narrative Resulting Agency Comment Spec In Lab Tal Eagle MD URINE ORDERABLES Performing Organization Address City/[facility]/ZIP Co de Phone Number [facility] [place] [address] * (ABNORMAL) Protein/Creatinine Ratio, urine (06/19/2021 11:22 AM EST) Creatinine, Urine 104 mg/dL [facility] Protein, Urine 74(H) 0 - 12 mg/dL [facility] Protein / Creatinine Ratio, Urine 0.7 ratio [facility] Urine 06/19/2021 11:2 2 AM EST 06/19/2021 12:04 PM EST Narrative Resulting Agency Comment Spec In Lab Tal Eagle MD URINE ORDERABLES [facility] [place] [address] documented in this encounter Visit Diagnoses Diagnosis H/O kidney transplant Kidney replaced by transplant documented in this encounter Care Teams Composite Laminator Relationship Specialty Start Date End Date Urbano Denis DO [address] [place] [address] PCP - General 09/03/12 03/17/22 Ruchi Valles RN Nurse Clinic Transplant Surgery 07/30/15 documented as of this encounter
--- OUTSIDE RECORDS SUMMARY | 2024-04-04 13:56 | XMS_ITS | Encounter Summary ---
Author Organization [facility] [place] [address] Care Team Providers Care Lumber Puller Name Role Phone AdeelUrbano toscano Primary Care Provider + [phone] Reason for Visit * Reason Comments Medication Refill Metoprolol Encounter Details Date Type Department Care Team (Late st Contact Info) Description 08/22/2021 Refill Cardiology at [address] [phone] Byron Brown MD [facility] [place] [address] Medication Refill (Metoprolol) Social History Tobacco Use [...] PM EDT Office Visit Cardiology at [address] [phone] Jay Urban MD [facility] [place] [address] 04/15/2024 10:00 AM EDT Hospital Encounter Non-[place] [address] Arrived documented as of this encounter Goals Goal Patient Goal Type Associated Problems Recent Progress Patient-Stated? Author DH Home Medication Compliance and Understanding Patient Facing Action Plan On track( 017 10:41 AM EDT) Selena Scott, [facility] Note: Patient Goal: Clear hepatitis C Timeframe to meet goal: within 12 weeks of therapy documented as of this encounter Visit Diagnoses Diagnosis Atrial fibrillation with RVR - had flutter initially, then fib Atrial fibrillation documented in this encounter Care Teams Lumber Puller Relationship Specialty Start Date End Date Urbano Denis DO [address] [place] [address] PCP - General 09/03/12 03/17/22 Ruchi Valles RN Nurse Clinic Transplant Surgery 07/30/15 documented as of this encounter
--- OUTSIDE RECORDS SUMMARY | 2024-04-04 13:56 | XMS_ITS | Encounter Summary ---
Author Organization [facility] [place] [address] Care Team Providers Care Front Desk Supervisor Name Role Phone Adeel Urbano KIRBY Primary Care Provider [phone] Reason for Visit * Consultation (Routine) - Closed Specialty Diagnoses / Procedures Referred By Humberto flor Referred To Contact Neurology Diagnoses Cerebrovascular accident (CVA), unspecified mechanism Byron Brown MD [facility] [place] [address] Joseph Cortés MD [facility] [place] [address] Referral ID Status Reason Start Date Expiration Date V isits Requested Visits Authorized [id number] Closed Consult, Test & Treat 03/14/2021 03/14/2022 1 1 Encounter Details Date Type Department Care Team (Late st Contact Info) Description 06/19/2021 10:00 AM EST Office Visit [place] [address] Joseph Cortés MD [facility] [place] [address] 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 [...] Disease and Stroke Program Department of Neurology [place] [id number] t: [phone] / f: [phone] Date of Appointment: 06/19/2021 Patient: Cody Bolden PCP: Urbano Denis DO Consultation Requested By: Byron Brown Md [facility] [place] [address] . HISTORY: This 70 y.o. male is evaluated because of a left basal ganglionic hemorrhage in February. Retired at age 53y. 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 Long hx of BP issues. 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 Seen by Dr Loya and then to Dr Lewis at [facility] and had a kidney biopsy and eventually a transplant in 2016. In 2013 PCP suspected stroke and he had an MRI showing multiple lacunes and saw Dr Rebolledo. February 25 [facility] left basal ganglionic ICH and apixaban and aspirin dc. [place] exhausted and then loopy, went to [facility] PM and then to [facility] Thursday. They dont recall BP issues then. Keptfor 4 days and then went home. BP 228/[address] [facility] Rebolledo saw in April and resumed [...] hepatitis) K73.2 ??? Prophylactic immunotherapy Z29.8 ??? ssis developer current use of immunosuppressive drug Z79.899 ??? [...] stop taking your medicine? No Stroke:PROMIS-10 06/19/2021 Dokcbc38-Uftptwyw Health Score 57.7 Lphvji35-Fssjcq Health Score 59 Health in general Very [...] lateral tothe caudate head. Brain MRI from [facility] shows the deep hemorrhage in [...] providingthis patient's care. This includes time spent [id number] with the patient performing evaluation, examination, and counseling . It also includes non [id number] time preparing to see the patient, reviewing the chart, coordinating care, and documenting clinical information in the electronic healthrecord. documented in this encounter Plan of Treatment Upcoming Encounters Date Type Department Care Team (Late st Contact Info) Description 04/08/2024 1:40 PM EDT Office Visit Cardiology at [address] [phone] Jay Urban MD [facility] [place] [address] 04/15/2024 10:00 AM EDT Hospital Encounter Non-[place]vasive [place] [phone] Arrived Scheduled Referrals Name Type Priority Associated [...] hemisphere documented in this encounter Care Teams Front Desk Supervisor Relationship Specialty Start Date End Date Urbano Denis DO [address] [place] [address] PCP - General 09/03/12 03/17/22 Ruchi Valles RN Nurse Clinic Transplant Surgery 07/30/15 documented as of this encounter
--- OUTSIDE RECORDS SUMMARY | 2024-04-04 13:56 | XMS_ITS | Encounter Summary ---
Author Organization [facility] [place] [address] Care Team Providers Care Aeronautical Engineering Technologist Name Role Phone Urbano Denis DO Primary Care Provider Encounter Details Date Type Department Care Team (Late st Contact Info) Description 03/19/2021 Telephone Solid [place] [phone] Marisela Metcalf, RN Social History Tobacco Use [...] 1:40 PM EDT Office Visit Cardiology at [address] [phone] Jay Urban MD [facility] [place] [address] 04/15/2024 10:00 AM EDT Hospital Encounter Non[place] [address] Arrived documented as of this encounter Goals [...] fibrillation documented in this encounter Care Teams Aeronautical Engineering Technologist Relationship Specialty Start Date End Date Urbano Denis DO [address] [place] [address] [address] [place] [address] PCP - General 3/1/13 9/12/22 Hai STANLEY,Ruchi Nurse Clinic Transplant Surgery 07/30/15 documented as of this encounter
--- OUTSIDE RECORDS SUMMARY | 2024-04-04 13:56 | XMS_ITS | Encounter Summary ---
[place] [address] Care Team Providers Care Local Area Network Administrator Name Role Phone Urbano Denis DO Primary Care Provider Reason for Referral * Diagnostic Test (Routine) - Closed Specialty Diagnoses / Procedures Referred By Contac t Referred To Contact Cardiology Diagnoses Atrial fibrillation with RVR Procedures Jeffrey 48 Hrs-15 Days Byron Brown MD [facility] [place] [address] [facility] [place] [address] Referral ID Status Reason Start Date Expiration Date V isits Requested Visits Authorized [id number] Closed Specialty Service Requested 03/15/2021 05/13/2021 1 1 Reason for Visit * Diagnostic Test (Routine) - Closed Specialty Diagnoses / Procedures Referred By Contac t Referred To Contact Cardiology Diagnoses Atrial fibrillation with RVR Procedures Jeffrey 48 Hrs-15 Days Byron Brown MD [facility] [address] [facility] [place] [address] Referral ID Status Reason Start Date Expiration Date V isits Requested Visits Authorized [id number] Closed Specialty Service Requested 03/15/2021 05/13/2021 1 1 Encounter Details Date Type Department Care Team (Late st Contact Info) Description 03/14/2021 4:00 PM EDT - 03/14/2021 11:59 PM EDT Hospital Encounter Non-Invasive Cardiology Lab [facility] [place] [address] Byron Brown MD [facility] [place] [address] Atrial fibrillation with RVR - had flutter [...] PM EDT Office Visit Cardiology at [address] [phone] Jay Urban MD [facility] [place] [address] 04/15/2024 10:00 AM EDT Hospital Encounter [place] [phone] Arrived documented as of this encounter Goals [...] Procedure Name Priority Date/Time Associated Diagnosis Comments ISHAOPATCH 48 HRS-15 DAYS Routine 03/14/2021 4:13 PM EDT Atrial fibrillation with RVR documented in this encounter Results * Ziopatch 48 Hrs-15 Days (03/14/2021 4:13 PM EDT) Anatomical Region Laterality Modality Other Narrative 04/03/2021 10:27 AM EDT [facility] ? Ambulatory Cardiac Event Monitor Report Duration of recordind 23h Summary Data Predominant rhythm: Predominant underlying rhythm was Sinus Rhythm. Minimum sinus rate: 41 bpm ?? Maximum sinus rate: 82 bpm ? Average heart rate: 57 bpm Atrial fibrillation: ? None Pauses: ? None Ectopic beats Isolated SVEs were frequent (6.6%, [address]), SVE Couplets were rare (<1.0%, 4420), and [...] fibrillation documented in this encounter Care Teams Local Area Network Administrator Relationship Specialty Start Date End Date Urbano Denis DO [address] [place] [address] [address] [place] [address] PCP - General 09/03/12 03/17/22 Hai STANLEY,Ruchi Nurse Clinic Transplant Surgery 07/30/15 documented as of this encounter
--- OUTSIDE RECORDS SUMMARY | 2024-04-04 13:56 | XMS_ITS | Encounter Summary ---
Author Organization [facility] [place] [address] Care Team Providers Care Mat Worker Name Role Phone AdeelUrbano toscano Primary Care Provider Encounter Details Date Type Department Care Team (Late st Contact Info) Description 03/14/2021 Orders Only [place] [address] Marisela Metcalf RN H/O kidney transplant Social [...] PM EDT Office Visit Cardiology at [address] [phone] Jay Urban MD [facility] [place] [address] 04/15/2024 10:00 AM EDT Hospital Encounter Non-[place] [address] Arrived documented as of this [...] transplant documented in this encounter Care Teams Mat Worker Relationship Specialty Start Date End Date Urbano Denis DO [address] [place] [address] PCP - General 09/03/12 03/17/22 Ruchi Valles RN Nurse Clinic Transplant Surgery 07/30/15 documented as of this encounter
--- OUTSIDE RECORDS SUMMARY | 2024-04-04 13:56 | XMS_ITS | Encounter Summary ---
Author Organization [facility] [place] [address] Care Team Providers Care Hearing Aid Technician Name Role Phone Urbano Denis DO Primary Care Provider [phone] Encounter Details Date Type Department Care Team (Latest Contact Info) Description 03/14/2021 2:00 PM EDT Laboratory Appointment Lab [address] [place] [address] H/O kidney transplant Social History [...] PM EDT Office Visit Cardiology at [address] [address] Jay Urban MD [facility] [place] [address] 04/15/2024 10:00 AM EDT Hospital Encounter Non-Invasive [place] [address] Arrived documented as of this [...] H/O kidney transplant HC [id number] (TACROLIMUS) Routine 1 2:50 PM EDT H/O kidney transplant HC RETIC,AUTO INCLUDES RETHE & IRF Routine 03/14/2021 2:50 PM EDT H/O kidney transplant HC CBC,PLT & AUTO DIFF Routine 1 2:50 PM EDT H/O kidney transplant HC [...] RBC, Urine 2 0 - 3 /HPF [facility] WBC, Urine 1 0 - 3 /HPF [facility] Granular Casts, Urine <1(H) <=0 /LPF [facility] Calcium Oxalate Crystal, Urine Moderate(A ) None /HPF [facility] Clean Catch Urine 03/14/2021 2:57 PM EDT 03/14/2021 3:33 PM EDT Narrative Resulting Agency Comment Spec In Lab Tal Eagle MD URINE ORDERABLES [facility] [place] [address] * (ABNORMAL) Urinalysis with reflex Culture (03/14/2021 2:57 PM EDT) Glucose, Urine Dipstick Negative Negative mg/dL [facility] Protein, Urine Dipstick 100(A) Negative mg/dL [facility] Bilirubin, [...] [facility] pH, Urn (dipstick) 5.5 5.0 - 8.0 [facility] Blood, Urine Dipstick Negative Negative mg/dL [facility] Ketone, Urine Dipstick Trace(A) Negative mg/dL [facility] Nitrite, Urine Dipstick Negative Negative [facility] Leukocytes, Urine Dipstick Negative Negative [facility] Appearance, Urine Dipstick Clear Clear [facility] Specific [place] Urine Automated 1.022 1.005 - 1.030 [facility] Color, Urine Dipstick Dark Yellow Yellow [facility] Reflex to Culture No [facility] Clean Catch Urine 03/14/2021 2:57 PM EDT 03/14/2021 3:33 PM EDT Narrative Resulting Agency Comment Spec In Lab Tal Eagle MD URINE ORDERABLES Performing Organization Address [facility] Co de Phone Number [facility] [place] [address] * (ABNORMAL) Protein/Creatinine Ratio, urine (03/14/2021 2:57 PM EDT) Creatinine, Urine 156 mg/dL [facility] Protein, Urine 73(H) 0 - 12 mg/dL [facility] Protein / Creatinine Ratio, Urine 0.5 ratio [facility] Urine 03/14/2021 2:57 PM EDT 03/14/2021 3:33 PM EDT Narrative Resulting Agency Comment Spec In Lab Tal Eagle MD URINE ORDERABLES Performing Organization Address City/[facility]/ZIP Co de Phone Number [facility] [place] [address] * (ABNORMAL) Differential, Automated (03/14/2021 2:50 PM EDT) Neutrophil % 68.0 % [facility] Neutrophil Absolute 6.24(H) 1.70 - 6.10 x10(3)/mc L [facility] Lymph % 17.6 % [facility] Lymphocytes Abs 1.6 0.9 - 3.2 x10(3)/mc L [facility] Monocyte % 9.4 % [facility] Monocyte Abs 0.9 0.3 - 0.9 x10(3)/[facility] Eos % 3.6 % [facility] Eosinophils Abs 0.3 0.0 - 0.4 x10(3)/[facility] Basophil % 0.5 % [facility] Baso Absolute 0.0 0.0 - 0.1 x10(3)/[facility] Immature Gran % 0.90 % [facility] Comment: Immature granulocytes(IG's)percentage and absolute count will include metamyelocytes, myelocytes, and promyelocytes. Blood smears from CBCs yielding IG's will be scanned manually for concordance. If this scan disagrees with the automated IG or if promyelocytes are noted, a manual differential will be performed. Immature Gran Absolute 0.08(H) 0.00 - 0.04 x10(3)/[facility] Blood 03/14/2021 2:50 PM EDT 03/14/2021 3:19 PM EDT Narrative Resulting Agency Comment Spec In Lab Tal Eagle MD HEMATOLOGY ORDERA BLES [facility] [place] [address] * Hemogram (03/14/2021 2:50 PM EDT) White Blood Cell 9.2 4.0 - 9.5 x10(3)/[facility] Red Blood Cell 4.94 4.58 - 5.54 x10(6)/[facility] Hemoglobin 15.2 13.7 - 16.5 gm/dL [facility] Hematocrit 43.7 40.5 - 48.5 % [facility] Mean Cell Volume 88.5 82.9 - 93.1 fL [facility] Mean Cell Hemoglobin 30.8 27.5 - 32.1 pg [facility] Mean Cell Hemoglobin Concentration 34.8 32.0 - 35.7 gm/dL [facility] Platelet 248 145 - 357 x10(3)/[facility] RDW Standard Deviation 41.2 36.0 - 45.0 fL [facility] RDW coefficient of variation 12.9 11.4 - 13.8 % [facility] Mean Platelet Volume 9.6 7.6 - 12.9 fL [facility] NRBC% auto 0.0 % [facility] NRBC Absolute 0.000 0.000 - 0.000 x10(3)/[facility] Blood 03/14/2021 2:50 PM EDT 03/14/2021 3:19 PM EDT Narrative Resulting Agency Comment Spec In Lab Tal Eagle MD HEMATOLOGY ORDERA BLES Performing Organization Address [facility]/ZIP Co de Phone Number [facility] [place] [address] * Reticulocyte Count (03/14/2021 2:50 PM EDT) Reticulocyte % 1.6 0.7 - 2.6 % [facility] Retic Abs # 0.080 0.030 - 0.120 x10(6)/[facility] Immature Retic% 8.2 0.0 - 15.6 % [facility] Reticulated Hgb 34.7 31.3 - 40.2 pg [facility] Blood 03/14/2021 2:50 PM EDT 03/14/2021 3:19 PM EDT Narrative Resulting Agency Comment Spec In Lab Tal Eagle MD HEMATOLOGY ORDERA BLES Performing Organization Address City/[facility]/ZIP Co de Phone Number [facility] [place] [address] * (ABNORMAL) Comprehensive metabolic panel (non-fasting) (03/14/2021 2:50 PM EDT) Glucose 123 65 - 199 mg/dL [facility] Comment:Diabetes: >=200 mg/d L plus symptoms Blood Urea Nitrogen 22(H) 10 - 20 mg/dL [facility] Creatinine 1.34 0.80 - 1.50 mg/dL [facility] Sodium 134(L) 135 - 145 mmol/L [facility] [...] 15 mmol/L [facility] Calcium 9.8 8.5 - 10.5 mg/dL [facility] Protein, Total 6.8 6.1 - 8.0 gm/dL [facility] Albumin 3.6 3.2 - 5.2 gm/dL [facility] Aspartate Aminotransferase 15 0 - 39 unit/L [facility] Alanine Aminotransferase 18 0 - 55 unit/L [facility] Alkaline Phosphatase 72 40 - 130 unit/L [facility] Bilirubin, Total 2.3(H) 0.2 - 1.3 mg/dL [facility] Est Glomerular Filtration Rate 53(L) >=60 mL/min/1. 73 m?? [facility] Comment: This patient? s estimated [...] CHEMISTRY ORDERAB LES [facility] [place] [address] * Cholesterol, total (03/14/2021 2:50 PM EDT) Cholesterol, Total 95 mg/dL [facility] Comment: Lower Risk: <200 mg/dL Average Risk: 200-239 mg/dL Higher Risk: >cp=951 mg/dL Lipid Interpretation See Note [facility] Comment: Lipid management should be guided by a patient? s ASCVD risk, goals and preferences. ACC/AHA Guidelines recommend high intensity statin if clinical ASCVD or LDL greater than or equal to 190 mg/dL. http://CrowdTransfer.com/ZHX-NYC-Jzxjhvfum Adults aged 40-75 with LDL 70-189 mg/dL should have their 10 year ASCVD risk estimated with the ACC/AHA ASCVD risk box estimator http://tools.acc.org/WQLCE-Awzg-Dfrbgnrba/ Statin should be discussed if risk greater [...] CHEMISTRY ORDERAB LES [facility] [place] [address] * Magnesium (03/14/2021 2:50 PM EDT) Magnesium 0.76 0.69 - 1.07 mmol/L [facility] Blood 03/14/2021 2:50 PM EDT 03/14/2021 3:19 PM EDT Narrative Resulting Agency Comment Spec In Lab Tal Eagle MD CHEMISTRY ORDERAB LES Performing Organization Address City/[facility]/ZIP Co de Phone Number [facility] [place] [address] * Phosphorus (03/14/2021 2:50 PM EDT) Phosphorus 3.1 2.5 - 4.5 mg/dL [facility] Blood 03/14/2021 2:50 PM EDT 03/14/2021 3:19 PM EDT Narrative Resulting Agency Comment Spec In Lab Tal Eagle MD CHEMISTRY ORDERAB LES Performing Organization Address City/[facility]/ZIP Co de Phone Number [facility] [place] [address] * Uric acid (03/14/2021 2:50 PM EDT) Uric Acid 6.1 3.5 - 8.5 mg/dL [facility] Blood 03/14/2021 2:50 PM EDT 03/14/2021 3:19 PM EDT Narrative Resulting Agency Comment Spec In Lab Tal Eagle MD CHEMISTRY ORDERAB LES [facility] [place] [address] * Tacrolimus level (03/14/2021 2:50 PM EDT) Tacrolimus 5.5 ng/mL [facility] Comment: Trough therapeutic range is [...] CHEMISTRY ORDERAB LES [facility] [place] [address] * BKV Quant Blood (03/14/2021 2:50 PM EDT) [facility] BKV Blood Result Not Detected [facility] BKV Blood Interp BK Virus Plasma Result Interpretation Result: BK Virus not detected Specimen type: plasma Assay Range: 2.80-7.80 log copies/mL (6.28x10^2 - 6.28x10^7 copies/mL) Methods: Quantitative real-time polymerase chain reaction (PCR) of viral DNA isolated from plasma was performed using Runner BKV analyte-specific reagents and the EQ works System that automates both nucleic acid isolation [...] [employer] (CGAT) Laboratory at [facility]. It has not been cleared or approved by the FDA. The laboratory is regulated under CLIA as qualified to perform high-complexity testing. This test is used for clinical purposes. It should not be regarded as investigational or for research. [facility] Comment: [VERIFIED DATE]03.28.21 Verified By:Bev Hughes (Electronic Signature) Blood 03/14/2021 2:50 PM EDT 03/15/2021 6:19 AM EDT Narrative Resulting Agency Comment Spec In Lab Tal Eagle MD MOLECULAR ORDERAB LES [facility] [place] [address] documented in this encounter Visit Diagnoses Diagnosis H/O kidney transplant Kidney replaced by transplant documented in this encounter Care Teams Hearing Aid Technician Relationship Specialty Start Date End Date Urbano Denis DO [address] [place] [address] PCP - General 09/03/12 03/17/22 Ruchi Valles RN Nurse Clinic Transplant Surgery 07/30/15 documented as of this encounter
--- OUTSIDE RECORDS SUMMARY | 2024-04-04 13:56 | XMS_ITS | Encounter Summary ---
Author Organization [facility] Joel [facility] [place] [address] Care Team Providers Care Rotary Surface Grinder Name Role Phone Urbano Denis DO Primary Care Provider [phone] Encounter Details Date Type Department Care Team (Late st Contact Info) Description 05/03/2021 Telephone [place] [address] Radha Espinoza, SPECIAL EDUCATION TEACHING ASSISTANT [facility] [address] [place] [address] Social History Tobacco Use Types Packs/Day Years [...] PM EDT Office Visit Cardiology at [address] [address] Jay Urban MD [facility] [place] [place] [address] 04/15/2024 10:00 AM EDT Hospital Encounter [place] [phone] Arrived documented as of this encounter Goals Goal Patient Goal Type Associated Problems Recent Progress Patient-Stated? Author [facility] Medication Compliance and Understanding Patient Facing Action Plan On track( 017 10:41 AM EDT) No Selena Cisneros, [facility] Note: Patient Goal: Clear hepatitis C Timeframe to meet goal: within 12 weeks of therapy documented as of this encounter Visit Diagnoses Not on filedocumented in this encounter Care Teams Rotary Surface Grinder Relationship Specialty Start Date End Date Urbano Denis DO [address] [place] [address] [address] [facility] [place] [address] PCP - General 09/03/12 03/17/22 Hai STANLEY,Ruchi Nurse Clinic Transplant Surgery 07/30/15 documented as of this encounter
--- OUTSIDE RECORDS SUMMARY | 2024-04-04 13:56 | XMS_ITS | Encounter Summary ---
Author Organization [facility] [place] [address] Care Team Providers Care Precision Instrument And Tool Maker Name Role Phone AdeelUrbano toscano Primary Care Provider [phone] Reason for Visit * Reason Onset Date Comments Medication Refill 10/04/2021 Encounter Details Date Type Department Care Team (Late st Contact Info) Description 10/04/2021 Refill [place] [phone] Tal Eagle MD [facility] [place] [address] Other complication of kidney transplant; Prophylactic immunotherapy [...] PM EDT Office Visit Cardiology at [address] [phone] Jay Urban MD [facility] [place] [address] 04/15/2024 10:00 AM EDT Hospital Encounter Non-[place] [address] Arrived documented as of this [...] immunotherapy documented in this encounter Care Teams Precision Instrument And Tool Maker Relationship Specialty Start Date End Date Urbano Denis DO [address] [place] [address] PCP - General 09/03/12 03/17/22 Ruchi Valles RN Nurse Clinic Transplant Surgery 07/30/15 documented as of this encounter
--- OUTSIDE RECORDS SUMMARY | 2024-04-04 13:57 | XMS_ITS | Encounter Summary ---
Author Organization [facility] [place] [address] Care Team Providers Care Design Cell Engineer Name Role Phone Urbano Denis DO Primary Care Provider Encounter Details Date Type Department Care Team (Late st Contact Info) Description 02/25/2021 External Results [place] [address] Social History Tobacco Use Types [...] PM EDT Office Visit Cardiology at [address] [phone] Jay Urban MD [facility] [place] [address] 04/15/2024 10:00 AM EDT Hospital Encounter Non-[place] [address] Arrived documented as of this [...] Scan Doc: Lab (02/22/2021) Historical Provider MD MEDIA MGR SCAN EX T ORDR/RSLT documented in this encounter Visit Diagnoses Not on filedocumented in this encounter Care Teams Design Cell Engineer Relationship Specialty Start Date End Date Urbano Denis DO [address] [place] [address] PCP - General 09/03/12 03/17/22 Ruchi Valles RN Nurse Clinic Transplant Surgery 07/30/15 documented as of this encounter
--- OUTSIDE RECORDS SUMMARY | 2024-04-04 13:57 | XMS_ITS | Encounter Summary ---
Author Organization [facility] [place] [address] Care Team Providers Care Nurse Executive Name Role Phone Urbano Denis DO Primary Care Provider [phone] Encounter Details Date Type Department Care Team (Late st Contact Info) Description 02/27/2021 Ancillary Procedure Radiology Library at [facility] [place] [phone] Urbano Denis DO [address] [place], [place] [address] Social History Tobacco Use Types Packs/Day Years [...] PM EDT Office Visit Cardiology at [address] [place] [phone] Jay Urban MD [facility] [place] [address] 04/15/2024 10:00 AM EDT Hospital Encounter Non-[place]vasive [place] [address] Arrived documented as of this encounter Goals [...] CT Head (02/27/2021 12:00 AM EDT) Narrative RAD - 05/27/2021 9:08 AM EST This exam is auto-finalizing. It's purpose is for storage only. Urbano Denis DO [facility] ORD ERABLES [place], [place] documented in this encounter Visit Diagnoses Not on filedocumented in this encounter Care Teams Nurse Executive Relationship Specialty Start Date End Date Urbano Denis DO [address] [place] [address] PCP - General 09/03/12 03/17/22 Ruchi Valles RN Nurse Clinic Transplant Surgery 07/30/15 documented as of this encounter
--- OUTSIDE RECORDS SUMMARY | 2024-04-04 13:57 | XMS_ITS | Encounter Summary ---
Author Organization [facility] [place] [address] Care Team Providers Care Fruit Dumper Name Role Phone Urbano Denis DO Primary Care Provider [phone] Encounter Details Date Type Department Care Team (Late st Contact Info) Description 02/25/2021 Telephone Neurology at [facility] [place] [address] Maxi Clement Jr., MD [facility] [place] [address] Social History Tobacco Use Types Packs/Day Years [...] PM EDT Spoke to Dr. Walsh @ [facility] ED. Pt presented there with ~10 days [...] alertness past 2 days. Discussed with neurosurgery application development specialist who will review images. I advised BP control <140/90, and no anticoagulants/antiplateletes, neurochecks q1-2 hours and repeat HCT for further alterations of level of consciousness or new focal deficits. At the moment [facility] is taking transfers only for procedures- again [...] PM EDT Office Visit Cardiology at [address] [phone] Jay Urban MD [facility] [place] [address] 04/15/2024 10:00 AM EDT Hospital Encounter Non-Invasive [place] [address] Arrived documented as of this encounter Goals [...] on filedocumented in this encounter Care Teams Fruit Dumper Relationship Specialty Start Date End Date Urbano Denis DO [address] [place] [address] PCP - General 09/03/12 03/17/22 Hai STANLEY,Ruchi Nurse Clinic Transplant Surgery 07/30/15 documented as of this encounter
--- OUTSIDE RECORDS SUMMARY | 2024-04-04 13:57 | XMS_ITS | Encounter Summary ---
Author Organization [facility] [place] [address] Care Team Providers Care Licensed Occupational Therapist Name Role Phone AdeelUrbano toscano Primary Care Provider [phone] Reason for Visit * Reason Onset Date Comments Medication Refill 07/26/2020 Encounter Details Date Type Department Care Team (Late st Contact Info) Description 07/26/2020 Refill Cardiology at [address] [phone] Byron Brown MD [facility] [place] [address] Medication Refill Social History Tobacco Use Types [...] 1:40 PM EDT Office Visit Cardiology at [address] [phone] Jay Urban MD [facility] [place] [address] 04/15/2024 10:00 AM EDT Hospital Encounter Non-[place] [address] Arrived documented as of this [...] fibrillation documented in this encounter Care Teams Licensed Occupational Therapist Relationship Specialty Start Date End Date Urbano Denis DO [address] [place] [address] PCP - General 09/03/12 03/17/22 Ruchi Valles RN Nurse Clinic Transplant Surgery 07/30/15 documented as of this encounter
--- OUTSIDE RECORDS SUMMARY | 2024-04-04 13:57 | XMS_ITS | Encounter Summary ---
Author Organization [facility] [place] [address] Care Team Providers Care Promotional Marketing Analyst Name Role Phone Urbano Denis DO Primary Care Provider [phone] Encounter Details Date Type Department Care Team (Late st Contact Info) Description 02/25/2021 Telephone [place] [address] Radha Espinoza, MEDICAL REIMBURSEMENT SPECIALIST [facility] [place] [address] Social History Tobacco Use Types Packs/Day Years [...] EDT ----- Regarding: please call Contact: His Mara called. She is really concerned that Yash has been sleeping a lot since last Thursday. She took him to express care at [facility] on Thursday. He was tested for COVID and it was negative. No fever. I have faxed a request to [facility] for labs results and urgent care notes. documented in this encounter Plan of Treatment Upcoming Encounters Date Type Department Care Team (Late st Contact Info) Description 04/08/2024 1:40 PM EDT Office Visit Cardiology at [address] [phone] Jay Urban MD [facility] [place] [address] 04/15/2024 10:00 AM EDT Hospital Encounter [place] [phone] Arrived documented as of this encounter Goals Goal Patient Goal Type Associated Problems Recent Progress Patient-Stated? Author [facility] Medication Compliance and Understanding Patient Facing Action Plan On track( 017 10:41 AM EDT) No Selena Cisnerso, [facility] Note: Patient Goal: Clear hepatitis C Timeframe to meet goal: within 12 weeks of therapy documented as of this encounter Visit Diagnoses Not on filedocumented in this encounter Care Teams Promotional Marketing Analyst Relationship Specialty Start Date End Date Urbano Denis DO [address] [place] [address] PCP - General 09/03/12 03/17/22 Hai STANLEY,Ruchi Nurse Clinic Transplant Surgery 07/30/15 documented as of this encounter
--- OUTSIDE RECORDS SUMMARY | 2024-04-04 13:57 | XMS_ITS | Encounter Summary ---
Author Organization [facility] Address [facility] Joel [facility] [place] [address] Care Team Providers Care Percussion Instrument Repairer Name Role Phone Urbano Denis DO Primary Care Provider Encounter Details Date Type Department Care Team (Late st Contact Info) Description 08/21/2020 Notes Only [place] [address] Anabella Bright Social History Tobacco Use Types [...] Bright - 08/21/2020 12:20 PM EST Transplant Building Equipment Inspector Note: Phone conversation with Mara yesterday afternoon. [...] 1:40 PM EDT Office Visit Cardiology at [address] [phone] Jay Urban MD [facility] [place] [address] 04/15/2024 10:00 AM EDT Hospital Encounter Non-[place] [phone] Arrived documented as of this encounter Goals [...] on filedocumented in this encounter Care Teams Percussion Instrument Repairer Relationship Specialty Start Date End Date Urbano Denis DO [address] [place] [address] [address] [place] [address] PCP - General 09/03/12 03/17/22 Ruchi Valles RN Nurse Clinic Transplant Surgery 07/30/15 documented as of this encounter
--- OUTSIDE RECORDS SUMMARY | 2024-04-04 13:57 | XMS_ITS | Encounter Summary ---
Author Organization [facility] [place] [address] Care Team Providers Care Automation Qa Lead Name Role Phone Urbano Denis DO Primary Care Provider [phone] Encounter Details Date Type Department Care Team (Late st Contact Info) Description 10/08/2020 11:40 AM EDT Office Visit [place] [phone] Dietary counseling and surveillance Social History Tobacco [...] post-transplant nurse coordinator, Marisela Metcalf, RN informed senior writer pt's , Mararequesting to speak to senior writer about encounter with pt. Caught Mara up to speed on senior writer's visit with Yash, concerning increasing weight and HgbA1c trends over recent years. Mara appreciative of update, stating she will help Yash embark on nutrition-related goals set forth. Post-Transplant Follow-up Nutrition Note: Objective: Cody Bolden, 70 y.o. male, presents to transplant clinic today for [id number]. Fast Food Crew Lead following up with patient today concerning increasing [...] 2 diabetes mellitus ??? Weight increase 08/12/2016 [place] [facility] Diagnosis: Transplant date: 09/16/15 Nutritional [...] absence of KPhos supplements (previously discussed by senior writer in Aug 2020). Yash provides the following diet recall: Breakfast: 2 cups coffee with stevia, bermudian muffin, almond milk yogurt + blueberry smoothie [...] encounter on 10/08/20: 105.2 kg (232 lb). [place] Body Weight: 78.2kg %IBW: 135% Adjusted Body [...] good understanding, receptive to suggestions provided by senior writer. Pt accepted Eating for HealthyBlood Sugars and Weight Control booklet complete with senior writer's means of contact. Pt plans show wifeMara, and senior writer offered to review info with Mara [...] PM EDT Office Visit Cardiology at [address] [phone] Jay Urban MD [facility] [address] [place] [address] 04/15/2024 10:00 AM EDT Hospital Encounter Non[place] [address] Arrived documented as of this encounter Goals Goal Patient Goal Type Associated Problems Recent Progress Patient-Stated? Author DH [facility] Medication Compliance and Understanding Patient Facing Action Plan On track( 017 10:41 AM EDT) No Selena Cisneros [facility] Note: Patient Goal: Clear hepatitis C Timeframe to meet goal: within 12 weeks of therapy documented as of this encounter Visit Diagnoses Diagnosis Dietary counseling and surveillance Dietary surveillance and counseling documented in this encounter Care Teams Automation Qa Lead Relationship Specialty Start Date End Date Urbano Denis DO [address] [place], [place] [address] [place] [address] PCP - General 09/03/12 03/17/22 Hai STANLEY,Ruchi Nurse Clinic Transplant Surgery 07/30/15 documented as of this encounter
--- OUTSIDE RECORDS SUMMARY | 2024-04-04 13:57 | XMS_ITS | Encounter Summary ---
Author Organization [facility] [place] [address] Care Team Providers Care Hand Compositor Name Role Phone Urbano Denis DO Primary Care Provider Encounter Details Date Type Department Care Team (Late st Contact Info) Description 08/21/2020 Telephone [place] [phone] Marisela Metcalf, RN Social History Tobacco Use [...] PM EDT Office Visit Cardiology at [address] [phone] Jay Urban MD [facility] [place] [address] 04/15/2024 10:00 AM EDT Hospital Encounter Non-[place] [phone] Arrived documented as of this encounter Goals Goal Patient Goal Type Associated Problems Recent Progress Patient-Stated? Author [facility] Medication Compliance and Understanding Patient Facing Action Plan On track( 017 10:41 AM EDT) No Selena Cisneros, [facility] Note: Patient Goal: Clear hepatitis C Timeframe to meet goal: within 12 weeks of therapy documented as of this encounter Visit Diagnoses Not on filedocumented in this encounter Care Teams Hand Compositor Relationship Specialty Start Date End Date Urbano Denis DO [address] [place] [address] PCP - General 09/03/12 03/17/22 Hai STANLEY,Ruchi Nurse Clinic Transplant Surgery 07/30/15 documented as of this encounter
--- OUTSIDE RECORDS SUMMARY | 2024-04-04 13:57 | XMS_ITS | Encounter Summary ---
Author Organization [facility] [place] [address] Care Team Providers Care Business Line Controller Name Role Phone Urbano Denis DO Primary Care Provider Encounter Details Date Type Department Care Team (Late st Contact Info) Description 06/18/2020 Orders [place] [address] Layla Pond RN Spinal stenosis of lumbar [...] PM EDT Office Visit Cardiology at [address] [phone] Jay Urban MD [facility] [address] [place] [address] 04/15/2024 10:00 AM EDT Hospital Encounter Non-[place] [address] Arrived documented as of this encounter Goals [...] present documented in this encounter Care Teams Business Line Controller Relationship Specialty Start Date End Date Urbano Denis DO [address] [place] [address] PCP - General 09/03/12 03/17/22 Ruchi Valles RN Nurse Clinic Transplant Surgery 07/30/15 documented as of this encounter
--- OUTSIDE RECORDS SUMMARY | 2024-04-04 13:57 | XMS_ITS | Encounter Summary ---
[place] [address] Care Team Providers Care Formwork Carpenter Name Role Phone Adeel, Urbano KIRBY Primary Care Provider [phone] Encounter Details Date Type Department Care Team (Late st Contact Info) Description 09/18/2020 Notes Only [place] [address] Anabella Bright Social History Tobacco Use Types [...] Bright - 09/18/2020 1:10 PM EDT Transplant Rn Radiation Note: Patient's initiated appeal for coverage of K-Phos 500. Received denial letter today, filed under Media tab. documented in this encounter Plan of Treatment Upcoming Encounters Date Type Department Care Team (Late st Contact Info) Description 04/08/2024 1:40 PM EDT Office Visit Cardiology at [address] [phone] Jay Urban MD [facility] [address] 04/15/2024 10:00 AM EDT Hospital Encounter Non-Invasive Cardiology Lab [facility] [place] [address] Arrived documented as of this encounter Goals Goal Patient Goal Type Associated Problems Recent Progress Patient-Stated? Author [facility] Home Medication Compliance and Understanding Patient Facing Action Plan On track( 017 10:41 AM EDT) No Selena Cisneros, [facility] Note: Patient Goal: Clear hepatitis C Timeframe to meet goal: within 12 weeks of therapy documented as of this encounter Visit Diagnoses Not on filedocumented in this encounter Care Teams Formwork Carpenter Relationship Specialty Start Date End Date Urbano Denis DO [address] [place] [address] [address] [facility] 1 [place] [address] PCP - General 09/03/12 03/17/22 Ruchi Valles RN Nurse Clinic Transplant Surgery 07/30/15 documented as of this encounter
--- OUTSIDE RECORDS SUMMARY | 2024-04-04 13:57 | XMS_ITS | Encounter Summary ---
Author Organization [facility] [place] [address] Care Team Providers Care Balance Truer Name Role Phone Adeel Urbano KIRBY Primary Care Provider [phone] Reason for Visit * Reason Comments Medication Refill Encounter Details Date Type Department Care Team (Late st Contact Info) Description 01/17/2021 Refill [place] [phone] Tal Eagle MD [facility] [place] [address] Social History Tobacco Use Types Packs/Day Years [...] PM EDT Office Visit Cardiology at [address] [phone] Jay Urban MD [facility] [place] [address] 04/15/2024 10:00 AM EDT Hospital Encounter Non-[place] [phone] Arrived documented as of this encounter Goals [...] filedocumented in this encounter Care Teams Balance Truer Relationship Specialty Start Date End Date Urbano Denis DO [address] [place] [address] [address] [facility] 1 [place] [address] PCP - General 09/03/12 03/17/22 Ruchi Valles RN Nurse Clinic Transplant Surgery 07/30/15 documented as of this encounter
--- OUTSIDE RECORDS SUMMARY | 2024-04-04 13:57 | XMS_ITS | Encounter Summary ---
Author Organization [facility] [place] [address] Care Team Providers Care Telecommunications Consultant Name Role Phone Urbano Denis DO Primary Care Provider Encounter Details Date Type Department Care Team (Late st Contact Info) Description 01/10/2021 Notes Only Solid Organ Transplant at [facility] [place] [address] Anabella Bright Social History Tobacco Use Types [...] Bright - 01/10/2021 3:03 PM EDT Transplant Shotblast Equipment Operator Note: Blue Medicare Advantage Plan effective 07/06/2020. [...] 1:40 PM EDT Office Visit Cardiology at [address] [phone] Jay Urban MD [facility] [place] [address] 04/15/2024 10:00 AM EDT Hospital Encounter Non-[place] [address] Arrived documented as of this [...] on filedocumented in this encounter Care Teams Telecommunications Consultant Relationship Specialty Start Date End Date Urbano Denis DO [address] [facility] 1 [place] [address] PCP - General 09/03/12 03/17/22 Ruchi Valles RN Nurse Clinic Transplant Surgery 07/30/15 documented as of this encounter
--- OUTSIDE RECORDS SUMMARY | 2024-04-04 13:57 | XMS_ITS | Encounter Summary ---
Author Organization [facility] [place] [address] Care Team Providers Care Range Ecologist Name Role Phone Adeel Urbano KIRBY Primary Care Provider [phone] Reason for Visit * Reason Comments Medication Refill Encounter Details Date Type Department Care Team (Late st Contact Info) Description 10/23/2020 Refill [place] [phone] Tla Eagle MD [facility] [place] [address] Social History Tobacco Use Types Packs/Day Years [...] PM EDT Office Visit Cardiology at [address] [phone] Jay Urban MD [facility] [place] [address] 04/15/2024 10:00 AM EDT Hospital Encounter Non-Invasive [place] [phone] Arrived documented as of this encounter Goals [...] on filedocumented in this encounter Care Teams Range Ecologist Relationship Specialty Start Date End Date Urbano Denis DO [address] [place] [address] [address] [facility] 1 [place] [address] PCP - General 09/03/12 03/17/22 Ruchi Valles RN Nurse Clinic Transplant Surgery 07/30/15 documented as of this encounter
--- OUTSIDE RECORDS SUMMARY | 2024-04-04 13:57 | XMS_ITS | Encounter Summary ---
Author Organization [facility] [place] [address] Care Team Providers Care Electrical/Instrument Technician Name Role Phone Urbano Denis DO Primary Care Provider [phone] Encounter Details Date Type Department Care Team (Late st Contact Info) Description 12/20/2020 11:45 AM EDT Laboratory Appointment Lab [address] [place] [phone] Social History Tobacco Use Types Packs/Day Years [...] PM EDT Office Visit Cardiology at [address] [phone] Jay Urban MD [facility] [place] [address] 04/15/2024 10:00 AM EDT Hospital Encounter [place] [address] Arrived documented as of this [...] (12/20/2020 12:13 PM EDT) Tacrolimus 6.0 ng/mL [facility] Comment: Please be advised that as of 07/10/2020 the methodology for tacrolimus testing has changed from a liquid chromatography tandem mass spectrometry platform to an electrochemiluminescence immunoassay format. Blood Venous Draw / Unknown 12/20/2020 12:13 PM EDT 12/20/2020 12:24 PM EDT Narrative Resulting Agency Comment Spec In Lab Tal Kessler Daily CHEMISTRY ORDERABLES [facility] [place] [address] * Uric acid (12/20/2020 12:13 PM EDT) Uric Acid 6.5 3.5 - 8.5 mg/dL [facility] Blood Venous Draw / Unknown 12/20/2020 12:13 PM EDT 12/20/2020 12:24 PM EDT Narrative Resulting Agency Comment Spec In Lab Tal Kessler Daily CHEMISTRY ORDERABLES Performing Organization Address [facility] Co de Phone Number [facility] [place] [address] * Magnesium (12/20/2020 12:13 PM EDT) Magnesium 0.72 0.69 - 1.07 mmol/L [facility] Blood Venous Draw / Unknown 12/20/2020 12:13 PM EDT 12/20/2020 12:24 PM EDT Narrative Resulting Agency Comment Spec In Lab Tal Kessler Daily CHEMISTRY ORDERABLES Performing Organization Address City/[facility]/ZIP Co de Phone Number [facility] [place] [address] * Cholesterol, total (12/20/2020 12:13 PM EDT) Cholesterol, Total 83 mg/dL [facility] Comment: Lower Risk: <200 mg/dL Average Risk: 200-239 mg/dL Higher Risk: >hf=469 mg/dL Lipid Interpretation See Note [facility] Comment: Lipid management should be guided by a patient? s ASCVD risk, goals and preferences. ACC/AHA Guidelines recommend high intensity statin if clinical ASCVD or LDL greater than or equal to 190 mg/dL. http://PredicSisurl.com/LVI-UCW-Qrlowaflk Adults aged 40-75 with LDL 70-189 mg/dL should have their 10 year ASCVD risk estimated with the ACC/AHA ASCVD risk auto body repair estimator http://tools.acc.org/HNZTH-Tgkl-Jekqkofhv/ Statin should be discussed if risk greater [...] In Lab Tal Quesada MD CHEMISTRY ORDERABLES [facility] [place] [address] * (ABNORMAL) Comprehensive metabolic panel (non-fasting) (12/20/2020 12:13 PM EDT) Glucose 144 65 - 199 mg/dL [facility] Comment:Diabetes: >=200 mg/d L plus symptoms Blood Urea Nitrogen 16 10 - 20 mg/dL [facility] Creatinine 1.34 0.80 - 1.50 mg/dL [facility] Sodium 142 135 - 145 mmol/L [facility] Potassium 4.2 3.5 - 5.0 mmol/L [facility] Comment: Please note: ??Patients with WBC >100,000 may have falsely elevated Potassium levels. ??For accurate Potassium quantification in these patients send serum separator tube (gold top) for subsequent determinations. ??Contact the Clinical Chemistry Laboratory if there are any questions. Chloride 103 98 - 107 mmol/L [facility] Carbon Dioxide 30 22 - 31 mmol/L [facility] Anion Gap 9 5 - 15 mmol/L [facility] Calcium 9.7 8.5 - 10.5 mg/dL [facility] Protein, Total 7.1 6.1 - 8.0 gm/dL [facility] Albumin 4.2 3.2 - 5.2 gm/dL [facility] Aspartate Aminotransferase 24 0 - 39 unit/L [facility] Alanine Aminotransferase 23 0 - 55 unit/L [facility] Alkaline Phosphatase 82 40 - 130 unit/L [facility] Bilirubin, Total 2.6(H) 0.2 - 1.3 mg/dL [facility] Est Glomerular Filtration Rate 53(L) >=60 mL/min/1. 73 m?? [facility] Comment: This patient? s estimated [...] In Lab Tal Quesada MD CHEMISTRY ORDERABLES [facility] [place] [address] * Differential, Automated (12/20/2020 12:13 PM EDT) Neutrophil % 66.9 % [facility] Neutrophil Absolute 5.53 1.70 - 6.10 x10(3)/mcL [facility] Lymph % 20.6 % [facility] Lymphocytes Abs 1.7 0.9 - 3.2 x10(3)/[facility] Monocyte % 7.9 % [facility] Monocyte Abs 0.6 0.3 - 0.9 x10(3)/[facility] Eos % 3.6 % [facility] Eosinophils Abs 0.3 0.0 - 0.4 x10(3)/[facility] Basophil % 0.8 % [facility] Baso Absolute 0.1 0.0 - 0.1 x10(3)/[facility] Immature Gran % 0.20 % [facility] Comment: Immature granulocytes(IG's)percentage and absolute count will include metamyelocytes, myelocytes, and promyelocytes. Blood smears from CBCs yielding IG's will be scanned manually for concordance. If this scan disagrees with the automated IG or if promyelocytes are noted, a manual differential will be performed. Immature Gran Absolute 0.02 0.00 - 0.04 x10(3)/[facility] Blood Venous Draw / Unknown 12/20/2020 12:13 PM EDT 12/20/2020 12:24 PM EDT Narrative Resulting Agency Comment Spec In Lab Tal Quesada MD HEMATOLOGY ORDERABLE S Performing Organization Address City/[facility]/ZIP Co de Phone Number [facility] [place] [address] * Phosphorus (12/20/2020 12:13 PM EDT) Phosphorus 2.6 2.5 - 4.5 mg/dL [facility] Blood Venous Draw / Unknown 12/20/2020 12:13 PM EDT 12/20/2020 12:24 PM EDT Narrative Resulting Agency Comment Spec In Lab Tal Quesada MD CHEMISTRY ORDERABLES Performing Organization Address City/[facility]/ZIP Co de Phone Number [facility] [place] [address] * Hemogram (12/20/2020 12:13 PM EDT) White Blood Cell 8.3 4.0 - 9.5 x10(3)/[facility] Red Blood Cell 4.94 4.58 - 5.54 x10(6)/[facility] Hemoglobin 15.2 13.7 - 16.5 gm/dL [facility] Hematocrit 44.6 40.5 - 48.5 % [facility] Mean Cell Volume 90.3 82.9 - 93.1 fL [facility] Mean Cell Hemoglobin 30.8 27.5 - 32.1 pg [facility] Mean Cell Hemoglobin Concentration 34.1 32.0 - 35.7 gm/dL [facility] Platelet 251 145 - 357 x10(3)/[facility] RDW Standard Deviation 41.9 36.0 - 45.0 [facility] RDW coefficient of variation 13.0 11.4 - 13.8 % [facility] Mean Platelet Volume 9.7 7.6 - 12.9 [facility] NRBC% auto 0.0 % [facility] NRBC Absolute 0.000 0.000 - 0.000 x10(3)/[facility] Blood Venous Draw / Unknown 12/20/2020 12:13 PM EDT 12/20/2020 12:24 PM EDT Narrative Resulting Agency Comment Spec In Lab Tal Quesada MD HEMATOLOGY ORDERABLE S [facility] [place] [address] * (ABNORMAL) Protein/Creatinine Ratio, urine (12/20/2020 12:07 PM EDT) Creatinine, Urine 93 mg/dL [facility] Protein, Urine 131(H) 0 - 12 mg/dL [facility] Protein / Creatinine Ratio, Urine 1.4 ratio [facility] Urine Urine / Unknown 12/20/2020 1 2:07 PM EDT 12/20/2020 12:31 PM EDT Narrative Resulting Agency Comment Spec In Lab Tal Quesada MD URINE ORDERABLES [facility] [place] [address] * (ABNORMAL) _Urinalysis with microscopic (12/20/2020 12:07 PM EDT) Glucose, Urine Dipstick Negative Negative mg/dL [facility] Protein, Urine Dipstick >=300(A) Negative mg/dL [facility] Bilirubin, Urine Dipstick Negative Negative mg/dL [facility] Comment: Clinical correlation required for positive Urine Bilirubin results as false positive may occur with some drugs and drug related products. If a false positive is suspected a serum total bilirubin should be considered if clinically indicated. Urobilinogen, Urine Dipstick Normal Normal mg/dL [facility] pH, Urn (dipstick) 7.0 5.0 - 8.0 [facility] Blood, Urine Dipstick Negative Negative mg/dL [facility] Ketone, Urine Dipstick Negative Negative mg/dL [facility] Nitrite, Urine Dipstick Negative Negative [facility] Leukocytes, Urine Dipstick Negative Negative mcL [facility] Appearance, Urine Dipstick Clear Clear [facility] Specific Pharr Urine Automated 1.021 1.005 - 1.030 [facility] Color, Urine Dipstick Yellow Yellow [facility] RBC, Urine 5(H) 0 - 3 /HPF [facility] WBC, Urine 0 0 - 3 /HPF [facility] Urine Urine / Unknown 12/20/2020 1 2:07 PM EDT 12/20/2020 12:31 PM EDT Narrative Resulting Agency Comment Spec In Lab Tal Kessler Daily URINE ORDERABLES [facility] [place] [address] documented in this encounter Visit Diagnoses Not on filedocumented in this encounter Care Teams Electrical/Instrument Technician Relationship Specialty Start Date End Date Urbano Denis DO [address] [place] [address] PCP - General 09/03/12 03/17/22 Ruchi Valles RN Nurse Clinic Transplant Surgery 07/30/15 documented as of this encounter
--- OUTSIDE RECORDS SUMMARY | 2024-04-04 13:57 | XMS_ITS | Encounter Summary ---
Author Organization [facility] [place] [address] Care Team Providers Care Wet Trimmer Name Role Phone AdeelUrbano toscano Primary Care Provider Encounter Details Date Type Department Care Team (Late st Contact Info) Description 02/25/2021 9:15 PM EDT Ancillary Procedure Radiology Library at [facility] [place] [phone] Sonia Stewart MD [facility] [place] [address] Social History Tobacco Use Types Packs/Day Years [...] PM EDT Office Visit Cardiology at [address] [place] [phone] Jay Urban MD [facility] [place] [address] 04/15/2024 10:00 AM EDT Hospital Encounter Non-[place] [address] Arrived documented as of this encounter Goals [...] is for storage only. Sonia Stewart MD IMG FILM LIBRARY ORD ERABLES [place], [place] documented in this encounter Visit Diagnoses Not on filedocumented in this encounter Care Teams Wet Trimmer Relationship Specialty Start Date End Date Urbano Denis DO [address] [place] [address] PCP - General 09/03/12 03/17/22 Ruchi Valles RN Nurse Clinic Transplant Surgery 07/30/15 documented as of this encounter
--- OUTSIDE RECORDS SUMMARY | 2024-04-04 13:57 | XMS_ITS | Encounter Summary ---
[place] [address] Care Team Providers Care Jewelry Mechanic Name Role Phone Adeel Urbano KIRBY Primary Care Provider [phone] Reason for Visit * Reason Onset Date Comments Medication Refill 12/27/2020 Encounter Details Date Type Department Care Team (Late st Contact Info) Description 12/27/2020 Refill [place] [address] Marisela Metcalf, RN Social History Tobacco Use [...] pharmacies but is available online. I recommended [facility] as prices are comparable to pharmacy and they offer quick shipping. I left a message for Mara to call back to discuss. documented in this encounter Plan of Treatment Upcoming Encounters Date Type Department Care Team (Late st Contact Info) Description 04/08/2024 1:40 PM EDT Office Visit Cardiology at [address] [phone] Jay Urban MD [facility] [place] [address] 04/15/2024 10:00 AM EDT Hospital Encounter Non-[place] [address] Arrived documented as of this encounter Goals Goal Patient Goal Type Associated Problems Recent Progress Patient-Stated? Author [facility] Medication Compliance and Understanding Patient Facing Action Plan On track( 017 10:41 AM EDT) No Selena Cisneros, [facility] Note: Patient Goal: Clear hepatitis C Timeframe to meet goal: within 12 weeks of therapy documented as of this encounter Visit Diagnoses Not on filedocumented in this encounter Care Teams Jewelry Mechanic Relationship Specialty Start Date End Date Urbano Denis DO [address] [place] [address] [address] [facility] 1 [place] [address] PCP - General 09/03/12 03/17/22 Ruchi Valles RN Nurse Clinic Transplant Surgery 07/30/15 documented as of this encounter
--- OUTSIDE RECORDS SUMMARY | 2024-04-04 13:57 | XMS_ITS | Encounter Summary ---
[place] [address] Care Team Providers Care Customer Account Technician Name Role Phone AdeelUrbano boland Primary Care Provider Encounter Details Date Type Department Care Team (Late st Contact Info) Description 02/26/2021 Telephone Cardiology at [address] [address] Anel Proctor RN Social History Tobacco Use [...] for Dr. Brown- Yash is currently at [facility] for stroke and his apixaban and ASA have been stopped. [facility] has been in touch with Neurosurgery at [facility] and patient is scheduled for repeat head CT this afternoon. Unable to transfer patient to [facility] because of bed availability- so patient will remain at [facility] for now. Mrs Bolden has also contacted [...] PM EDT Office Visit Cardiology at [address] [address] Jay Urban MD [facility] [place] [address] 04/15/2024 10:00 AM EDT Hospital Encounter [place] [address] Arrived documented as of this encounter Goals Goal Patient Goal Type Associated Problems Recent Progress Patient-Stated? Author [facility] Medication Compliance and Understanding Patient Facing Action Plan On track( 017 10:41 AM EDT) No Selena Cisneros, [facility] Note: Patient Goal: Clear hepatitis C Timeframe to meet goal: within 12 weeks of therapy documented as of this encounter Visit Diagnoses Not on filedocumented in this encounter Care Teams Customer Account Technician Relationship Specialty Start Date End Date Urbano Denis DO [address] [place] [address] 1 [place] [address] PCP - General 09/03/12 03/17/22 Rucih Valles RN Nurse Clinic Transplant Surgery 07/30/15 documented as of this encounter
--- OUTSIDE RECORDS SUMMARY | 2024-04-04 13:57 | XMS_ITS | Encounter Summary ---
Author Organization [facility] [place] [address] Care Team Providers Care Counter Top Maker Name Role Phone Urbano Denis DO Primary Care Provider Encounter Details Date Type Department Care Team (Late st Contact Info) Description 09/03/2020 Notes Only [place] [address] Anabella Bright Social History Tobacco Use Types [...] Bright - 09/03/2020 10:41 AM EST Transplant Restaurant Supervisor Note: Patient's called to inform us that she has filed an appeal for [facility]'s hos. Will await call with decision. Note: [...] PM EDT Office Visit Cardiology at [address] [phone] Jay Urban MD [facility] [place] [address] 04/15/2024 10:00 AM EDT Hospital Encounter Non-[place] [phone] Arrived documented as of this encounter Goals [...] on filedocumented in this encounter Care Teams Counter Top Maker Relationship Specialty Start Date End Date Urbano Denis DO [address] [place] [address] PCP - General 09/03/12 03/17/22 Ruchi Valles RN Nurse Clinic Transplant Surgery 07/30/15 documented as of this encounter
--- OUTSIDE RECORDS SUMMARY | 2024-04-04 13:57 | XMS_ITS | Encounter Summary ---
Author Organization [facility] [place] [address] Care Team Providers Care Survey Field Technician Name Role Phone AdeelUrbano Primary Care Provider [phone] Encounter Details Date Type Department Care Team (Late st Contact Info) Description 08/06/2020 Abstract [place] [phone] Tal Eagle MD [facility] [place] [address] Social History Tobacco Use Types Packs/Day Years [...] 1:40 PM EDT Office Visit Cardiology at [address] [phone] Jay Urban MD [facility] [place] [address] 04/15/2024 10:00 AM EDT Hospital Encounter Non-[place] [address] Arrived documented as of this encounter Goals [...] on filedocumented in this encounter Care Teams Survey Field Technician Relationship Specialty Start Date End Date Urbano Denis DO [address] [place] [address] [address] [facility] 1 [place] [address] PCP - General 09/03/12 03/17/22 Ruchi Valles RN Nurse Clinic Transplant Surgery 07/30/15 documented as of this encounter
--- OUTSIDE RECORDS SUMMARY | 2024-04-04 13:57 | XMS_ITS | Encounter Summary ---
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 Social [...] 1:40 PM EDT Office Visit Cardiology at [address] [phone] Jay Urban MD [facility] [place] [address] 04/15/2024 10:00 AM EDT Hospital Encounter Non-[place] [address] Arrived documented as of this [...] Vitamin D deficiency Unspecified vitamin D deficiency group home current use of immunosuppressive drug documented in this encounter Care Teams Data Entry Processor Relationship Specialty Start Date End Date Urbano Denis DO [address] [place] [address] PCP - General 09/03/12 03/17/22 Ruchi Valles RN Nurse Clinic Transplant Surgery 07/30/15 documented as of this encounter
--- OUTSIDE RECORDS SUMMARY | 2024-04-04 13:57 | XMS_ITS | Encounter Summary ---
Author Organization [facility] [place] [address] Care Team Providers Care Cattle Dehorner Name Role Phone AdeelUrbano boland Primary Care Provider Encounter Details Date Type Department Care Team (Late st Contact Info) Description 06/25/2020 External Results [place] [phone] Tal Eagle MD [facility] [place] [address] Social History Tobacco Use Types Packs/Day Years [...] 1:40 PM EDT Office Visit Cardiology at [address] [phone] Jay Urban MD [facility] [place] [address] 04/15/2024 10:00 AM EDT Hospital Encounter Non-[place] [address] Arrived documented as of this encounter Goals [...] on filedocumented in this encounter Care Teams Cattle Dehorner Relationship Specialty Start Date End Date Urbano Denis DO [address] [place] [address] PCP - General 09/03/12 03/17/22 Ruchi Valles RN Nurse Clinic Transplant Surgery 07/30/15 documented as of this encounter
--- OUTSIDE RECORDS SUMMARY | 2024-04-04 13:57 | XMS_ITS | Encounter Summary ---
[place] [address] Care Team Providers Care Theology Professor Name Role Phone Adeel Urbano KIRBY Primary Care Provider Encounter Details Date Type Department Care Team (Late st Contact Info) Description 08/14/2020 Notes Only [place] [address] Anabella Bright Social History Tobacco [...] Needed: Medication: K-Phos Insurance: [employer] Phone: Herbarium Worker: Via CoverMyMeds Reference #: N/a Outcome: Denied - Excluded from Coverage under Medicare law documented in this encounter Plan of Treatment Upcoming Encounters Date Type Department Care Team (Late st Contact Info) Description 04/08/2024 1:40 PM EDT Office Visit Cardiology at [address] [address] Jay Urban MD [facility] [place] [address] 04/15/2024 10:00 AM EDT Hospital Encounter Non-Invasive Cardiology Lab [facility] [place] [address] Arrived documented as of this [...] on filedocumented in this encounter Care Teams Theology Professor Relationship Specialty Start Date End Date Urbano Denis DO [address] [place] [address] [address] [facility] 1 [place] [address] PCP - General 09/03/12 03/17/22 Hai STANLEY,Ruchi Nurse Clinic Transplant Surgery 07/30/15 documented as of this encounter
--- OUTSIDE RECORDS SUMMARY | 2024-04-04 13:57 | XMS_ITS | Encounter Summary ---
Author Organization [facility] [address] Care Team Providers Care Mucker Operator Name Role Phone Urbano Denis DO Primary Care Provider [phone] Encounter Details Date Type Department Care Team (Late st Contact Info) Description 10/08/2020 11:00 AM EDT Office Visit [place] [address] Tal Eagle MD [facility] [place] [address] Tobacco abuse counseling; H/O kidney transplant; Prophylactic [...] hepatitis) 08/25/2016 ??? Prophylactic immunotherapy 09/22/2016 ??? 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 [...] EXTREMITY performed by Que Amaro MD at [facility] OR ??? PRO CYSTOURETHROSCOPY, URETER CATHETER Left 06/17/2018 ?? CYSTO, RETROGRADE, URETEROPYELOGRAPHY (WRVU 2.37) performed by Edinson Grider III, MD at [facility] OR ??? PRO REIMPLANT URETER, SINGLE URETER Left 05/20/2016 ?? @URETERONEOCYSTOSTOMY ANASTOMOSIS OF SINGLE URETER TO BLADDER performed by Santosh Arredondo MD Counts include 234 beds at the [facility] OR ??? PRO REIMPLANT URETER, SINGLE URETER N/A 05/20/2016 ?? @URETERONEOCYSTOSTOMY ANASTOMOSIS OF SINGLE URETER TO BLADDER performed by Akhil Amaro MD at [facility] OR ??? PRO TOTAL KNEE ARTHROPLASTY Right 11/25/2017 ?? TOTAL KNEE ARTHROPLASTY (WRVU 20.72) performed by Breezy Dale MD at [facility] OR ??? PRO TRANSPLANT, PREP CADAVER RENAL GRAFT N/A 09/16/2015 ?? @PREPARATION CADAVERIC RENAL ALLOGRAFT performed by Franko Larkin MD at [facility] OR ??? PRO TRANSPLANTATION OF KIDNEY N/A 09/16/2015 ?? @KIDNEY TRANSPLANT, WITHOUT RECIPIENT NEPHRECTOMY [facility] ??? US RENAL TRANSPLANT LEFT Left 01/31/2019 ?? US Renal Transplant Left 01/31/2019 [facility] RAD ULTRASOUND ??? US RENAL TRANSPLANT LEFT Left 02/07/2019 ?? US Renal Transplant Left 02/07/2019 [facility] RAD ULTRASOUND ? Current Outpatient Medications: [...] for diabetics, every 5 for non diabetics [place] kidney ultrasound looking for renal cell CA, [...] from 10/08/2020 in Solid Organ Transplant at [facility] Weight 105.2 kg (232 lb) [...] control ? 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 PO4/Mg - Kphos.??decr to 2 tabs bid (did so in September 2020) - Magnesium??gluconate [phone] TID - He can take liquid antacid [...] disease, AF/Afib Followed by Dr. Brown ? [id number] labs f/u in??September 2021 ?? ? Discussion with the patient and/or family concerned the following: ?Diagnostic results or recommended studies ?Prognosis; ?Risks and benefits of management; ?Instructions for management; ?Compliance with treatment; ?Risk factor reduction; ?Patient and family education. ? Total time?25 of 30 min??in direct face to face counseling psychologist. ?? documented in this encounter Plan of Treatment Upcoming Encounters Date Type Department Care Team (Late st Contact Info) Description 04/08/2024 1:40 PM EDT Office Visit Cardiology at [address] [phone] Jay Urban MD [facility] [address] 04/15/2024 10:00 AM EDT Hospital Encounter Non-Invasive [place] [address] Arrived documented as of this [...] transplant documented in this encounter Care Teams Mucker Operator Relationship Specialty Start Date End Date Urbano Denis DO [address] [place] [address] PCP - General 09/03/12 03/17/22 Ruchi Valles RN Nurse Clinic Transplant Surgery 07/30/15 documented as of this encounter
--- OUTSIDE RECORDS SUMMARY | 2024-04-04 13:57 | XMS_ITS | Encounter Summary ---
[place] [address] Care Team Providers Care Senior Software Qa Analyst Name Role Phone Urbano Denis DO Primary Care Provider + [phone] Reason for Referral * Diagnostic Test (Routine) - Closed Specialty Diagnoses / Procedures Referred By Contac t Referred To Contact Cardiology Diagnoses Cardiomyopathy, unspecified type Procedures Echocardiogram Transthoracic([facility]) Byron Brown MD [facility] [place] [address] [facility] [place] [address] Referral ID Status Reason Start Date Expiration Date V isits Requested Visits Authorized [id number] Closed Specialty Service Requested 09/14/2020 09/14/2021 1 1 Encounter Details Date Type Department Care Team (Late st Contact Info) Description 09/14/2020 10:00 AM EST TH Visit (TeleHealth) Cardiology at [address] [phone] Byron Brown MD [facility] [place] [address] Cardiomyopathy, unspecified type Social History [...] original note were not included. [facility] [place] [address] CARDIOLOGY/ VASCULAR OUTPATIENT NOTE Ethel Denis, DO TELEHEALTH VISIT : From my prior note in November 2019: Pleasant 69 year old male. S/p kidney transplant in 2016. ? The patient did not have a significant cardiac history but was admitted to [facility] in January 2019 with newly diagnosed AFlutter [...] placed on plavix by a neurologist at [facility] (Shannan Redmond). There was some question about CVA/TIA at that time. He was later seen by a aircraft servicer at [facility] (Petar) who obtained a ZIO that [...] Patient lives with his in [facility]. He is quite active - states [...] significant cardiac history but was admitted to [facility] in January 2019 with newly diagnosed AFlutter [...] ECG in 3 months. Byron Brown MD, [facility] Cardiovascular Medicine [facility] Clinic scheduling: Trinidad John [phone] Clinic Team Nurse: Anel Proctor RN [phone] I provided care to the patient today video conference. The total time associated with this visit was 30 minutes. documented in this encounter Plan of Treatment Upcoming Encounters Date Type Department Care Team (Late st Contact Info) Description 04/08/2024 1:40 PM EDT Office Visit Cardiology at [address] [phone] Jay Urban MD [facility] [place] [address] 04/15/2024 10:00 AM EDT Hospital Encounter Non-Invasive [place] [phone] Arrived Scheduled Orders Name Type Priority Associated Diagnoses Orde r Schedule EKG 12 Lead ECG Routine Cardiomyopathy, unspecified type Ordered: 09/14/2020 documented as of this encounter Goals Goal Patient Goal Type Associated Problems Recent Progress Patient-Stated? Author [facility] [place] Medication Compliance and Understanding Patient Facing Action [...] P ? (Age): 1950(70y) Med Rec#: ? [id number] ?Sex: ?M ? Site Loc: ? [facility] ?Ht / Wt: ??180(cm)/99.34(k Pt. Loc: ?Echo Lab ?BSA: ?2.19 Study Date: ?? 12/20/2020 ?Pt. Type: Outpatient Tape: ? Referring: Byron Brown ([id number]) Reading: Liseth Calero ([id number]) Environmental Services Specialist: Anali Boudreaux Diagnosis: *Cardiomyopathy, unspecified (I42.9) BP: [...] Vmax ?0.79 ? m/sec ? MV deceleration [id number] ?msec ? MV A-wave Vmax ?0.34 ? [...] ? Mid-Inferior ?Normal ? Mid-Inferoseptal ?Normal ? [place]-Septal ? Normal ? [place]-Anterior ? Normal ? [place]-Lateral ?Normal ? [place]-Inferior ? Normal ? [place]-Tip ?Normal ? This report has been electronically signed by: Liseth Calero MD ? 12/20/2020 16:59:50 Images reviewed and interpretation verified [facility] Cardiac Ultrasound Laboratory Procedure Note Liseth Calero MD - 12/20/2020 Procedure: Transthoracic Echocardiogram Patient: MABLE Gomez DOB(Age): 1950(70y) Med Rec#: [id number] Sex: M Site Loc: [facility] Ht / Wt: 180(cm)/99.34(k Pt. Loc: Echo Lab BSA: 2.19 Study Date: 12/20/2020 Pt. Type: Outpatient Tape: Referring: Byron Brown ([id number]) Reading: Liseth Calero ([id number]) Environmental Services Specialist: Anali Boudreaux Diagnosis: *Cardiomyopathy, unspecified (I42.9) BP: [...] MV E-wave Vmax 0.79 m/sec MV deceleration [id number] msec MV A-wave Vmax 0.34 m/sec MV [...] Normal Mid-Posterolateral Normal Mid-Inferior Normal Mid-Inferoseptal Normal [place]-Septal Normal [place]-Anterior Normal [place]-Lateral Normal [place]-Inferior Normal [place]-Tip Normal This report has been electronically signed by: Liseth Calero MD 12/20/2020 16:59:50 Images reviewed and interpretation verified [facility] Cardiac Ultrasound Laboratory Byron Brown MD ECHO ORDERABLES documented in this encounter Visit Diagnoses Diagnosis Cardiomyopathy, unspecified type Cardiomyopathy, unspecified type documented in this encounter Care Teams Senior Software Qa Analyst Relationship Specialty Start Date End Date Urbano Denis DO [address] [place] [address] [address] [facility] 1 [place] [address] PCP - General 09/03/12 03/17/22 Ruchi Valles RN Nurse Clinic Transplant Surgery 07/30/15 documented as of this encounter
--- OUTSIDE RECORDS SUMMARY | 2024-04-04 13:57 | XMS_ITS | Encounter Summary ---
Author Organization [facility] [place] [address] Care Team Providers Care Bacteriologist Pharmaceutical Name Role Phone Adeel, Urbano KIRBY Primary Care Provider [phone] Reason for Visit * Reason Comments Medication Refill Encounter Details Date Type Department Care Team (Late st Contact Info) Description 08/14/2020 Refill Cardiology at [address] [phone] Byron Brown MD [facility] [place] [address] Medication Refill Social History Tobacco Use Types [...] PM EDT Office Visit Cardiology at [address] [phone] Jay Urban MD [facility] [place] [address] 04/15/2024 10:00 AM EDT Hospital Encounter Non-Invasive [place] [phone] Arrived documented as of this encounter Goals [...] fibrillation documented in this encounter Care Teams Bacteriologist Pharmaceutical Relationship Specialty Start Date End Date Urbano Denis DO [address] [place] [address] PCP - General 09/03/12 03/17/22 Ruchi Valles RN Nurse Clinic Transplant Surgery 07/30/15 documented as of this encounter
--- OUTSIDE RECORDS SUMMARY | 2024-04-04 13:57 | XMS_ITS | Encounter Summary ---
Author Organization [facility] [place] [address] Care Team Providers Care Biometrics Experimentalist Name Role Phone Adeel Urbano KIRBY Primary Care Provider Encounter Details Date Type Department Care Team (Late st Contact Info) Description 09/04/2020 Telephone [place] [address] eDvi Preciado Social History Tobacco Use Types Packs/Day [...] PM EDT Office Visit Cardiology at [address] [phone] Jay Urban MD [facility] [place] [address] 04/15/2024 10:00 AM EDT Hospital Encounter Non-[place] [address] Arrived documented as of this [...] on filedocumented in this encounter Care Teams Biometrics Experimentalist Relationship Specialty Start Date End Date Urbano Denis DO [address] [place] [address] [address] [facility] 1 [place] [address] PCP - General 09/03/12 03/17/22 Ruchi Valles RN Nurse Clinic Transplant Surgery 07/30/15 documented as of this encounter
--- OUTSIDE RECORDS SUMMARY | 2024-04-04 13:57 | XMS_ITS | Encounter Summary ---
Author Organization [facility] [place] [address] Care Team Providers Care Patient Observer Name Role Phone Adeel, Urbano KIRBY Primary Care Provider + [phone] Reason for Visit * Reason Comments Medication Refill Encounter Details Date Type Department Care Team (Late st Contact Info) Description 08/16/2020 Refill Cardiology at [address] [phone] Byron Brown MD [facility] [place] [address] Medication Refill Social History Tobacco Use Types [...] PM EDT Office Visit Cardiology at [address] [phone] Jay Urban MD [facility] [place] [address] 04/15/2024 10:00 AM EDT Hospital Encounter Non-[place] [phone] Arrived documented as of this encounter Goals [...] fibrillation documented in this encounter Care Teams Patient Observer Relationship Specialty Start Date End Date Urbano Denis DO [address] [place] [address] PCP - General 09/03/12 03/17/22 Ruchi Valles RN Nurse Clinic Transplant Surgery 07/30/15 documented as of this encounter
--- OUTSIDE RECORDS SUMMARY | 2024-04-04 13:57 | XMS_ITS | Encounter Summary ---
Author Organization [facility] [place] [address] Care Team Providers Care Pediatric Physiatrist Name Role Phone Adeel Urbano KIRBY Primary Care Provider [phone] Reason for Visit * Reason Comments Medication Refill Encounter Details Date Type Department Care Team (Late st Contact Info) Description 09/10/2020 Refill [place] [phone] Tal Eagle MD [facility] [place] [address] Social History Tobacco Use Types Packs/Day Years [...] PM EDT Office Visit Cardiology at [address] [phone] Jay Urban MD [facility] [place] [address] 04/15/2024 10:00 AM EDT Hospital Encounter Non-[place]vasive [place] [phone] Arrived documented as of this encounter Goals Goal Patient Goal Type Associated Problems Recent Progress Patient-Stated? Author [facility] Home Medication Compliance and Understanding Patient Facing Action Plan On track( 017 10:41 AM EDT) Selena Scott, [facility] Note: Patient Goal: Clear hepatitis C Timeframe to meet goal: within 12 weeks of therapy documented as of this encounter Visit Diagnoses Not on filedocumented in this encounter Care Teams Pediatric Physiatrist Relationship Specialty Start Date End Date Urbano Denis DO [address] [place] [address] [facility] 1 [place] [address] PCP - General 09/03/12 03/17/22 Ruchi Valles RN Nurse Clinic Transplant Surgery 07/30/15 documented as of this encounter
--- OUTSIDE RECORDS SUMMARY | 2024-04-04 13:57 | XMS_ITS | Encounter Summary ---
Author Organization [facility] Address [facility] [place] [address] Care Team Providers Care Fermenter Champagne Name Role Phone Urbano Denis DO Primary Care Provider Encounter Details Date Type Department Care Team (Late st Contact Info) Description 08/24/2020 Telephone [place] [phone] [facility] [place] [address] Social History Tobacco Use Types Packs/Day Years [...] to receive phosphorus foods list via email. Stenciling Machine Tender emailed handouts complete with contact info to Yash's email for both Mara and Yash to review. Thank you, Jolene Reed RD documented in this encounter Plan of Treatment Upcoming Encounters Date Type Department Care Team (Late st Contact Info) Description 04/08/2024 1:40 PM EDT Office Visit Cardiology at [address] [phone] Jay Urban MD [facility] [place] [address] 04/15/2024 10:00 AM EDT Hospital Encounter Non-[place] [address] Arrived documented as of this [...] on filedocumented in this encounter Care Teams Fermenter Champagne Relationship Specialty Start Date End Date Urbano Denis DO [address] [place] [address] [address] [place] [address] PCP - General 09/03/12 03/17/22 Ruchi Valles RN Nurse Clinic Transplant Surgery 07/30/15 documented as of this encounter
--- OUTSIDE RECORDS SUMMARY | 2024-04-04 13:57 | XMS_ITS | Encounter Summary ---
Author Organization [facility]ly [facility] [place] [address] Care Team Providers Care Tail Board Man Name Role Phone Urbano Denis DO Primary Care Provider Encounter Details Date Type Department Care Team (Late st Contact Info) Description 02/26/2021 Ancillary Procedure Radiology Library at [facility] [place] [phone] Urbano Denis DO [address] [place], [place] [address] Social History Tobacco Use Types Packs/Day Years [...] PM EDT Office Visit Cardiology at [address] [place] [phone] Jay Urban MD [facility] [place] [address] 04/15/2024 10:00 AM EDT Hospital Encounter Non-[place]vasive [place] [address] Arrived documented as of this encounter Goals [...] MR Head (02/26/2021 12:00 AM EDT) Narrative RAD - 05/27/2021 9:07 AM EST This exam is auto-finalizing. It's purpose is for storage only. Urbano Denis DO Danielle FILM LIBRARY ORD ERABLES [place], [place] documented in this encounter Visit Diagnoses Not on filedocumented in this encounter Care Teams Tail Board Man Relationship Specialty Start Date End Date Urbano Denis DO [address] [place] [address] PCP - General 09/03/12 03/17/22 Ruchi Valles RN Nurse Clinic Transplant Surgery 07/30/15 documented as of this encounter
--- OUTSIDE RECORDS SUMMARY | 2024-04-04 13:57 | XMS_ITS | Encounter Summary ---
Author Organization [facility]ly [facility] Address [facility] [place] [address] Care Team Providers Care Election Supervisor Name Role Phone Adeel Urbano KIRBY Primary Care Provider [phone] Reason for Visit * Reason Onset Date Comments Medication Refill 09/24/2020 Encounter Details Date Type Department Care Team (Late st Contact Info) Description 09/24/2020 Refill Cardiology at [address] [phone] Byron Brown MD [facility] [place] [address] Medication Refill Social History Tobacco Use Types [...] Telephone Encounter - Anel Proctor RN - 09/24/2020 10:11 AM EDT Received phone request from patient spouse seeking refill of Elqiuis 5 mg one tablet PO - BID. Patient does get this Rx from [facility] free of charge once he has fulfilled his annual deductible requirement- but needs to pay for some of this medication via-ib-gkxsrd first Would like the Rx to go to [facility] to meet this requirement. Reviewed the office note from patient's 09/14/[address] Brown. Rx prepared as requested and forwarded to provider for their approval. Anel Proctor RN, BSN Ambulatory Cardiology Department documented in this encounter Plan of Treatment Upcoming Encounters Date Type Department Care Team (Late st Contact Info) Description 04/08/2024 1:40 PM EDT Office Visit Cardiology at [address] [phone] Jay Urban MD [facility] [place] [address] 04/15/2024 10:00 AM EDT Hospital Encounter Non[place] [phone] Arrived documented as of this encounter Goals Goal Patient Goal Type Associated Problems Recent Progress Patient-Stated? Author DH [place] Medication Compliance and Understanding Patient Facing Action [...] fibrillation documented in this encounter Care Teams Election Supervisor Relationship Specialty Start Date End Date Urbano Denis DO [facility] [address] [facility] 1 [place] [address] PCP - General 09/03/12 03/17/22 Hai STANLEY,Ruchi Nurse Clinic Transplant Surgery 07/30/15 documented as of this encounter
--- OUTSIDE RECORDS SUMMARY | 2024-04-04 13:57 | XMS_ITS | Encounter Summary ---
Author Organization [facility] [place] [address] Care Team Providers Care Atomic Process Engineer Name Role Phone Urbano Denis DO Primary Care Provider [phone] Encounter Details Date Type Department Care Team (Late st Contact Info) Description 12/26/2020 Notes Only [place] [address] Anabella Bright Social History Tobacco Use Types [...] MG Insurance: [employer] MEDICARE ADVANTAGE/ANTHEM RX Phone: Hospice/Home Health Aide: [employer]IA [employer] Reference #: TACRO- REF#[id number] MMF - REF#[id number] Outcome: DENIED UNDER PART D, APPROVED UNDER [...] PM EDT Office Visit Cardiology at [address] [phone] Jay Urban MD [facility] [place] [address] 04/15/2024 10:00 AM EDT Hospital Encounter Non[place] [phone] Arrived documented as of this encounter Goals [...] on filedocumented in this encounter Care Teams Atomic Process Engineer Relationship Specialty Start Date End Date Urbano Denis DO [address] [place] [address] [address] [place] [address] PCP - General 09/03/12 03/17/22 Hai STANLEY,Ruchi Nurse Clinic Transplant Surgery 07/30/15 documented as of this encounter
--- OUTSIDE RECORDS SUMMARY | 2024-04-04 13:57 | XMS_ITS | Encounter Summary ---
Author Organization [facility] [place] [address] Care Team Providers Care Loft Worker Head Name Role Phone AdeelUrbano toscano Primary Care Provider Encounter Details Date Type Department Care Team (Late st Contact Info) Description 02/25/2021 9:10 PM EDT Ancillary Procedure Radiology Library at [facility] [place] [phone] Sonia Stewart MD [facility] [address] Social History Tobacco Use Types Packs/Day Years [...] 1:40 PM EDT Office Visit Cardiology at [address] [place] [phone] Jay Urban MD [facility] [address] 04/15/2024 10:00 AM EDT Hospital Encounter Non[place] [address] Arrived documented as of this encounter Goals [...] Stewart MD IMG FILM LIBRARY ORD ERABLES [place], [place] documented in this encounter Visit Diagnoses Not on filedocumented in this encounter Care Teams Loft Worker Head Relationship Specialty Start Date End Date Urbano Denis DO [address] [place] [address] PCP - General 09/03/12 03/17/22 Ruchi Valles RN Nurse Clinic Transplant Surgery 07/30/15 documented as of this encounter
--- OUTSIDE RECORDS SUMMARY | 2024-04-04 13:57 | XMS_ITS | Encounter Summary ---
Author Organization [facility] [place] [address] Care Team Providers Care Ammunition Assembly Laborer Name Role Phone Urbano Denis DO Primary Care Provider Encounter Details Date Type Department Care Team (Late st Contact Info) Description 02/27/2021 Telephone [place] [phone] Marisela Metcalf, RN Social History Tobacco Use [...] Mara reports that Yash was admitted to [facility] on Thursday night after his CT scan showed a brain bleed.He is currently in the ICU for observation but over all doing OK. They are holding his blood thinners for the time being. I asked Mara to keep us updated on Yash's condition. Once discharged I will request in patient record from [facility] and determine if follow up is needed with Dr. Eagle. All Mara's questions were were answered; no other concerns at this time. documented in this encounter Plan of Treatment Upcoming Encounters Date Type Department Care Team (Late st Contact Info) Description 04/08/2024 1:40 PM EDT Office Visit Cardiology at [address] [phone] Jay Urban MD [facility] [place] [address] 04/15/2024 10:00 AM EDT Hospital Encounter Non-[place]vasive [place] [phone] Arrived documented as of this encounter Goals Goal Patient Goal Type Associated Problems Recent Progress Patient-Stated? Author DH [place] Medication Compliance and Understanding Patient Facing Action Plan On track( 017 10:41 AM EDT) No Selena Cisneros, [facility] Note: Patient Goal: Clear hepatitis C Timeframe to meet goal: within 12 weeks of therapy documented as of this encounter Visit Diagnoses Not on filedocumented in this encounter Care Teams Ammunition Assembly Laborer Relationship Specialty Start Date End Date Urbano Denis DO [address] [place] [address] PCP - General 09/03/12 03/17/22 Ruchi Valles RN Nurse Clinic Transplant Surgery 07/30/15 documented as of this encounter
--- OUTSIDE RECORDS SUMMARY | 2024-04-04 13:57 | XMS_ITS | Encounter Summary ---
Author Organization [facility] [place] [address] Care Team Providers Care Green Energy Marketing Analyst Name Role Phone AdeelUrbano toscano Primary Care Provider [phone] Reason for Visit * Reason Onset Date Comments Medication Refill 08/21/2020 Encounter Details Date Type Department Care Team (Late st Contact Info) Description 08/21/2020 Refill [place] [phone] [facility] [place] [address] Social History Tobacco Use Types Packs/Day Years [...] PM EDT Office Visit Cardiology at [address] [phone] [facility] [place] [address] 04/15/2024 10:00 AM EDT Hospital Encounter Non-Invasive [place] [address] Arrived documented as of this encounter Goals Goal Patient Goal Type Associated Problems Recent Progress Patient-Stated? Author DH [place] Medication Compliance and Understanding Patient Facing Action Plan On track( 017 10:41 AM EDT) No Selena Cisneros, [facility] Note: Patient Goal: Clear hepatitis C Timeframe to meet goal: within 12 weeks of therapy documented as of this encounter Visit Diagnoses Not on filedocumented in this encounter Care Teams Green Energy Marketing Analyst Relationship Specialty Start Date End Date Urbano Denis DO [address] [place] [address] PCP - General 09/03/12 03/17/22 Ruchi Valles RN Nurse Clinic Transplant Surgery 07/30/15 documented as of this encounter
--- OUTSIDE RECORDS SUMMARY | 2024-04-04 13:57 | XMS_ITS | Encounter Summary ---
Author Organization [facility] [place] [address] Care Team Providers Care Architect Internship Name Role Phone Adeel Urbano KIRBY Primary Care Provider [phone] Reason for Visit * Reason Comments Medication Refill Encounter Details Date Type Department Care Team (Late st Contact Info) Description 08/12/2020 Refill [place] [phone] Tal Eagle MD [facility] [place] [address] Social History Tobacco Use Types Packs/Day Years [...] PM EDT Office Visit Cardiology at [address] [phone] Jay Urban MD [facility] [place] [address] 04/15/2024 10:00 AM EDT Hospital Encounter Non-[place]vasive [place] [phone] Arrived documented as of this encounter Goals [...] on filedocumented in this encounter Care Teams Architect Internship Relationship Specialty Start Date End Date Urbano Denis DO [address] [place] [address] [address] [facility] 1 [place] [address] PCP - General 09/03/12 03/17/22 Ruchi Valles RN Nurse Clinic Transplant Surgery 07/30/15 documented as of this encounter
--- OUTSIDE RECORDS SUMMARY | 2024-04-04 13:57 | XMS_ITS | Encounter Summary ---
Author Organization [facility] [place] [address] Care Team Providers Care Search Engine Optimization Analyst Name Role Phone Adeel, Urbano KIRBY Primary Care Provider [phone] Reason for Visit * Reason Comments Medication Refill Encounter Details Date Type Department Care Team (Late st Contact Info) Description 01/24/2021 Refill Cardiology at [address] [phone] Byron Brown MD [facility] [place] [address] Medication Refill Social History Tobacco Use Types [...] 1:40 PM EDT Office Visit Cardiology at [address] [phone] Jay Urban MD [facility] [place] [address] 04/15/2024 10:00 AM EDT Hospital Encounter Non-Invasive [place] [address] Arrived documented as of this encounter Goals [...] Coronary atherosclerosis of unspecified type of vessel, [place] or graft documented in this encounter Care Teams Search Engine Optimization Analyst Relationship Specialty Start Date End Date Urbano Denis DO [address] [place] [address] PCP - General 09/03/12 03/17/22 Ruchi Valles RN Nurse Clinic Transplant Surgery 07/30/15 documented as of this encounter
--- OUTSIDE RECORDS SUMMARY | 2024-04-04 13:57 | XMS_ITS | Encounter Summary ---
Author Organization [facility]ly [facility] [place] [place] [address] Care Team Providers Care Education Dean Name Role Phone Adeel Urbano KIRBY Primary Care Provider Encounter Details Date Type Department Care Team (Late st Contact Info) Description 09/04/2020 Telephone Cardiology at [address] [phone] Hetal Lyle LNA Social History Tobacco Use Types Packs/Day Years [...] PM EDT Office Visit Cardiology at [address] [phone] Jay Urban MD [facility] [place] [address] 04/15/2024 10:00 AM EDT Hospital Encounter Non-Invasive [place] [address] Arrived documented as of this [...] on filedocumented in this encounter Care Teams Education Dean Relationship Specialty Start Date End Date Urbano Denis DO [address] [place] [address] [address] [place] [address] PCP - General 09/03/12 03/17/22 Ruchi Valles RN Nurse Clinic Transplant Surgery 07/30/15 documented as of this encounter
--- OUTSIDE RECORDS SUMMARY | 2024-04-04 13:57 | XMS_ITS | Encounter Summary ---
[place] [address] Care Team Providers Care Director Life Sales Name Role Phone Urbano Denis DO Primary Care Provider Encounter Details Date Type Department Care Team (Late st Contact Info) Description 2020 Telephone [place] [phone] Anabella Bright Social History Tobacco Use Types [...] at 2020 9:55 AM EST ----- Contact: [facility] not covered by their insurance. [facility] was supposed to get in touch [...] PM EDT Office Visit Cardiology at [address] [phone] Jay Urban MD [facility] [place] [address] 04/15/2024 10:00 AM EDT Hospital Encounter Non-[place] [phone] Arrived documented as of this encounter Goals Goal Patient Goal Type Associated Problems Recent Progress Patient-Stated? Author [facility] Medication Compliance and Understanding Patient Facing Action Plan On track( 017 10:41 AM EDT) No Selena Cisneros, [facility] Note: Patient Goal: Clear hepatitis C Timeframe to meet goal: within 12 weeks of therapy documented as of this encounter Visit Diagnoses Not on filedocumented in this encounter Care Teams Director Life Sales Relationship Specialty Start Date End Date Urbano Denis DO [address] [place] [address] [address] [facility] [place] [address] PCP - General 09/03/12 03/17/22 Hai STANLEY,Ruchi Nurse Clinic Transplant Surgery 07/30/15 documented as of this encounter
--- OUTSIDE RECORDS SUMMARY | 2024-04-04 13:57 | XMS_ITS | Encounter Summary ---
[place] [address] Care Team Providers Care Primary Education Professor Name Role Phone Urbano Denis DO Primary Care Provider Reason for Referral * Diagnostic Test (Routine) - Closed Specialty Diagnoses / Procedures Referred By Contac t Referred To Contact Cardiology Diagnoses Cardiomyopathy, unspecified type Procedures Echocardiogram Transthoracic([facility] or [facility]) Byron Brown MD [facility] [place] [address] [facility] [place] [address] Referral ID Status Reason Start Date Expiration Date V isits Requested Visits Authorized [id number] Closed Specialty Service Requested 09/14/2020 09/14/2021 1 1 Reason for Visit * Diagnostic Test (Routine) - Closed Specialty Diagnoses / Procedures Referred By Contac t Referred To Contact Cardiology Diagnoses Cardiomyopathy, unspecified type Procedures Echocardiogram Transthoracic([facility] or [facility]) Byron Brown MD [facility] [place] [address] [facility] [place] [address] Referral ID Status Reason Start Date Expiration Date V isits Requested Visits Authorized [id number] Closed Specialty Service Requested 09/14/2020 09/14/2021 1 1 Encounter Details Date Type Department Care Team (Late st Contact Info) Description 12/20/2020 12:23 PM EDT - 12/20/2020 11:59 PM EDT Hospital Encounter Non-Invasive Cardiology Lab [facility] [place] [address] Byron Brown MD [facility] [place] [address] Cardiomyopathy, unspecified type Discharge Disposition: Home Social [...] unspecified vessel or lesion type, unspecified whether [place] or transplanted heart Take 1 tablet by [...] PM EDT Office Visit Cardiology at [address] [phone] Jay Urban MD [facility] [place] [address] 04/15/2024 10:00 AM EDT Hospital Encounter Non-Invasive [place] [phone] Arrived documented as of this encounter Goals Goal Patient Goal Type Associated Problems Recent Progress Patient-Stated? Author DH [place] Medication Compliance and Understanding Patient Facing Action Plan On track( 017 10:41 AM EDT) Selena Scott [facility] Note: Patient [...] P ? (Age): 1950(70y) Med Rec#: ? [id number] ?Sex: ?M ? [place] Loc[place] ? [facility] ?Ht / Wt: ??180(cm)/99.34(k Pt. Loc: ?Echo Lab ?BSA: ?2.19 Study Date: ?? 12/20/2020 ?Pt. Type: Outpatient Tape: ? Referring: Byron Brown ([id number]) Reading: Liseth Claero ([id number]) Lace Paper Machine Operator: Anali Boudreaux Diagnosis: *Cardiomyopathy, unspecified (I42.9) BP: [...] Vmax ?0.79 ? m/sec ? MV deceleration coys230 ?msec ? MV A-wave Vmax ?0.34 ? [...] ? Mid-Inferior ?Normal ? Mid-Inferoseptal ?Normal ? [place]-Septal ? Normal ? [place]-Anterior ? Normal ? [place]-Lateral ?Normal ? [place]-Inferior ? Normal ? [place]-Tip ?Normal ? This report has been electronically signed by: Liseth Calero MD ? 12/20/2020 16:59:50 Images reviewed and interpretation verified [facility] Cardiac Ultrasound Laboratory Procedure Note Liseth Calero MD - 12/20/2020 Procedure: Transthoracic Echocardiogram Patient: MABLE Gomez (Age): 1950(70y) Med Rec#: [id number] Sex: M Site Loc: [facility] Ht / Wt: 180(cm)/99.34(k Pt. Loc: Echo Lab BSA: 2.19 Study Date: 12/20/2020 Pt. Type: Outpatient Tape: Referring: Byron Brown ([id number]) Reading: Liseth Calero ([id number]) Lace Paper Machine Operator: Anali Boudreaux Diagnosis: *Cardiomyopathy, unspecified (I42.9) BP: [...] MV E-wave Vmax 0.79 m/sec MV deceleration begl041 msec MV A-wave Vmax 0.34 m/sec MV [...] Normal Mid-Posterolateral Normal Mid-Inferior Normal Mid-Inferoseptal Normal [place]-Septal Normal [place]-Anterior Normal [place]-Lateral Normal [place]-Inferior Normal [place]-Tip Normal This report has been electronically signed by: Liseth Calero MD 12/20/2020 16:59:50 Images reviewed and interpretation verified [facility] Cardiac Ultrasound Laboratory Byron Brown MD ECHO ORDERABLES documented in this encounter Visit Diagnoses Diagnosis Cardiomyopathy, unspecified type documented in this encounter Care Teams Primary Education Professor Relationship Specialty Start Date End Date Urbano Denis DO [address] [place] [address] PCP - General 09/03/12 03/17/22 Ruchi Valles RN Nurse Clinic Transplant Surgery 07/30/15 documented as of this encounter
--- OUTSIDE RECORDS SUMMARY | 2024-04-04 13:57 | XMS_ITS | Encounter Summary ---
Author Organization [facility] [place] [address] Care Team Providers Care Rn Case Management Name Role Phone Urbano Denis DO Primary Care Provider [phone] Encounter Details Date Type Department Care Team (Late st Contact Info) Description 06/21/2020 1:20 PM EST Ancillary Procedure Radiology Library at [facility] [place] [address] Urbano Denis DO [address] [place], [place] [address] Social History Tobacco Use Types Packs/Day Years [...] PM EDT Office Visit Cardiology at [address] [place] [phone] Jay Urban MD [facility] [place] [address] 04/15/2024 10:00 AM EDT Hospital Encounter Non[place] [phone] Arrived documented as of this encounter Goals [...] DX Spine (06/21/2020 1:16 PM EST) Narrative RAD - 06/21/2020 1:16 PM EST This exam is auto-finalizing. It's purpose is for storage only. Urbano Denis DO Danielle FILM LIBRARY ORD ERABLES Performing Organization Address City/State/[facility] Co de Phone Number [place], [place] documented in this encounter Visit Diagnoses Not on filedocumented in this encounter Care Teams Rn Case Management Relationship Specialty Start Date End Date Urbano Denis DO [address] [place] [address] PCP - General 09/03/12 03/17/22 Ruchi Valles RN Nurse Clinic Transplant Surgery 07/30/15 documented as of this encounter
--- OUTSIDE RECORDS SUMMARY | 2024-04-04 13:57 | XMS_ITS | Encounter Summary ---
Author [place] [address] Care Team Providers Care Signal Technician Name Role Phone Urbano Denis DO Primary Care Provider [phone] Encounter Details Date Type Department Care Team (Late st Contact Info) Description 07/26/2020 Telephone Cardiology at [address] [phone] Anel Proctor, RN Social History Tobacco Use [...] Brown complete the provider portion of the [place] Celia Squibb-2020 Patient Assistance Application for Eliquis. [...] PM EDT Office Visit Cardiology at [address] [phone] Jay Urban MD [facility] [place] [address] 04/15/2024 10:00 AM EDT Hospital Encounter Non[place] [phone] Arrived documented as of this encounter Goals Goal Patient Goal Type Associated Problems Recent Progress Patient-Stated? Author [facility] Medication Compliance and Understanding Patient Facing Action Plan On track( 017 10:41 AM EDT) Selena Scott, [facility] Note: Patient Goal: Clear hepatitis C Timeframe to meet goal: within 12 weeks of therapy documented as of this encounter Visit Diagnoses Not on filedocumented in this encounter Care Teams Signal Technician Relationship Specialty Start Date End Date Urbano Denis DO [address] [place] [address] PCP - General 09/03/12 03/17/22 Ruchi Valles RN Nurse Clinic Transplant Surgery 07/30/15 documented as of this encounter
--- OUTSIDE RECORDS SUMMARY | 2024-04-04 13:57 | XMS_ITS | Encounter Summary ---
Author Organization [facility] [place] [address] Care Team Providers Care Social Science Manager Name Role Phone Urbano Denis DO Primary Care Provider [phone] Encounter Details Date Type Department Care Team (Late st Contact Info) Description 12/27/2020 2:00 PM EDT TH Visit (TeleHealth) Cardiology at [address] [phone] Byron Brown MD [facility] [place] [address] Coronary artery disease involving kalispel heart, unspecified vessel or lesion type, unspecified [...] original note were not included. [facility] [place] [address] CARDIOLOGY/ VASCULAR OUTPATIENT NOTE Cody Bolden Urbano Denis, OFFICE VISIT : (Telehealth, phone) Pleasant 69 year old male.?S/p kidney transplant in 2016. ? The patient did not have a significant cardiac history but was admitted to [facility] in January 2019 with [...] shortness of breath. He recently came into [facility] for echo follow-up. In the past, his LVEF was as low as 30% and later improved to 45%. Currently back to normal at 59%. Mild noted (see below). He has back surgery at [facility] in May 2020. At that time, telemetry [...] significant cardiac history but was admitted to [facility] in January 2019 with [...] 6 months or prn Byron Brown MD, [facility] Cardiovascular Medicine [facility] Clinic scheduling: Trinidad John [phone] Clinic Team Nurse: Anel Proctor RN [phone] The total time associated with this visit was 20 minutes. documented in this encounter Plan of Treatment Upcoming Encounters Date Type Department Care Team (Late st Contact Info) Description 04/08/2024 1:40 PM EDT Office Visit Cardiology at [address] [phone] Jay Urban MD [facility] [place] [address] 04/15/2024 10:00 AM EDT Hospital Encounter Non-Invasive [place] [phone] Arrived documented as of this encounter Goals [...] Visit Diagnoses Diagnosis Coronary artery disease involving kalispel heart, unspecified vessel or lesion type, unspecified whether angina present documented in this encounter Care Teams Social Science Manager Relationship Specialty Start Date End Date Urbano Denis DO [address] [place] [address] [address] [facility] 1 [place] [address] PCP - General 09/03/12 03/17/22 Ruchi Valles RN Nurse Clinic Transplant Surgery 07/30/15 documented as of this encounter
--- OUTSIDE RECORDS SUMMARY | 2024-04-04 13:57 | XMS_ITS | Encounter Summary ---
Author Organization [facility] [place] [address] Care Team Providers Care Acquisition Lead Name Role Phone Urbano Denis DO Primary Care Provider [phone] Encounter Details Date Type Department Care Team (Late st Contact Info) Description 02/25/2021 Telephone Solid [place] [address] Radha Espinoza, [employer] [facility] [place] [address] Social History Tobacco Use Types Packs/Day Years [...] 1-2 hours and then back to sleep. Mee franks has been in touch with his PCP [...] PM EDT Office Visit Cardiology at [address] [phone] Jay Urban MD [facility] [place] [address] 04/15/2024 10:00 AM EDT Hospital Encounter Non-Invasive [place] [phone] Arrived documented as of this encounter Goals [...] Date End Date Urbano Denis DO [address] [place] [address] [address] [facility] 1 [place] [address] PCP - General 09/03/12 03/17/22 Hai STANLEY,Ruchi Nurse Clinic Transplant Surgery 07/30/15 documented as of this encounter
--- OUTSIDE RECORDS SUMMARY | 2024-04-04 13:58 | XMS_ITS | Encounter Summary ---
Author Organization [facility] [place] [address] Care Team Providers Care Pediatric Hospitalist Name Role Phone Urbano Denis DO Primary Care Provider Encounter Details Date Type Department Care Team (Late st Contact Info) Description 05/04/2020 [place] [phone] Erica Powers Social History Tobacco Use Types [...] ASK: TRAVEL ???Have you travelled outside of [place] ([place], [place], [place], [place], [place], [place]) in the past 14 days??? 2. ASK: [...] Transfer patient to the Covid-19 Hotline Number ([phone]) for further instructions. If 'No' to all of the questions above Is this the first test for Covid 19 Yes If no, please list date of previous test, result, and type of test (Molecular, Antigen, Antibody orunknown): Resides in half-way, group home or other residential facility No Employee or [...] patient. Ordering provider: Dr Ang Testing Facility: [facility] Date of Testin/2 Time of Testin:00am Symptoms: no documented in this encounter Plan of Treatment Upcoming Encounters Date Type Department Care Team (Late st Contact Info) Description 04/08/2024 1:40 PM EDT Office Visit Cardiology at [address] [phone] Jay Urban MD [facility] [place] [address] 04/15/2024 10:00 AM EDT Hospital Encounter Non[place] [phone] Arrived documented as of this encounter Goals Goal Patient Goal Type Associated Problems Recent Progress Patient-Stated? Author [facility] Medication Compliance and Understanding Patient Facing Action Plan On track( 017 10:41 AM EDT) No Selena Cisneros [facility] Note: Patient Goal: Clear hepatitis C Timeframe to meet goal: within 12 weeks of therapy documented as of this encounter Visit Diagnoses Not on filedocumented in this encounter Care Teams Pediatric Hospitalist Relationship Specialty Start Date End Date Urbano Denis DO [address] [place] [address] [address] [facility] 1 [place] [address] PCP - General 09/03/12 03/17/22 Ruchi Valles RN Nurse Clinic Transplant Surgery 07/30/15 documented as of this encounter
--- OUTSIDE RECORDS SUMMARY | 2024-04-04 13:58 | XMS_ITS | Encounter Summary ---
Author Organization Pending Sale To [facility] Address [facility] [place] [address] Care Team Providers Care Practice Representative Name Role Phone Urbano Denis DO Primary Care Provider [phone] Encounter Details Date Type Department Care Team (Late st Contact Info) Description 02/17/2020 2:20 PM EDT Office Visit Cardiology at [address] [phone] Naif Garibay MD [facility] [place] [address] Coronary artery disease involving chemehuevi heart, angina presence unspecified, unspecified vessel or lesion type; Atrial fibrillation with RVR - had flutter initially, then fib; Coronary artery disease, angina presence unspecified, unspecified vessel or lesion type, unspecified whether chemehuevi or transplanted heart; Hypertension secondary to other [...] not included. [facility] [place] [address] Subjective: Patient ID: Cody Bolden is a 69 y.o. male. Patient for Dr Brown, last seen by telemedicine in11/2019. He now is here for cardiovascular exam before back surgery at [facility]. Patient Active Problem List Diagnosis ??? CAD [...] has one building with 8 units in [place], [place]). He uses his pushmower. Review of [...] QTC Calculated (Bezet) 435 ms Calculated P Kemp 49 degrees Calculated R Kemp -65 degrees Calculated T Kemp -5 degrees INTERPRETATION Sinus bradycardia Left anterior [...] back surgery to lower risk of periop MD or stent thrombosis. 25 minutes of this [...] back surgery to lower risk of periop MD or stent thrombosis. * Assessment & Plan [...] 1:40 PM EDT Office Visit Cardiology at [address] [phone] Jay Urban MD [facility] [place] [address] 04/15/2024 10:00 AM EDT Hospital Encounter Non-[place] [address] Arrived documented as of this [...] unspecified vessel or lesion type, unspecified whether chemehuevi or transplanted heart documented in this encounter Results * EKG 12 Lead (02/17/2020 2:13 PM EDT) Ventricular rate 51 BPM MUSE SYSTEM Atrial Rate 51 BPM MUSE SYSTEM P-R Interval 200 ms MUSE SYSTEM QRS Duration 120 ms MUSE SYSTEM Q-T Interval 472 ms MUSE SYSTEM QTC Calculated (Bezet) 435 ms MUSE SYSTEM Calculated P Kemp 49 degrees MUSE SYSTEM Calculated R Kemp -65 degrees MUSE SYSTEM Calculated T Kemp -5 degrees MUSE SYSTEM INTERPRETATION Sinus bradycardia Left anterior fascicular block Left ventricular hypertrophy with QRS widening Abnormal ECG When compared with ECG of 31-MAR-2019 13:58, No significant change was found Confirmed by MD Phillip Daniel ([id number]) on 02/17/2020 5:16:28 PM MUSE SYSTEM 02/17/2020 2:13 PM EDT 02/17/2020 5:16 PM EDT Danny Hicks MD ECG ORDERABLES MUSE SYSTEM documented in this encounter Visit Diagnoses Diagnosis Coronary artery disease involving chemehuevi heart, angina presence unspecified, unspecified vessel or lesion type Atrial fibrillation with RVR - had flutter initially, then fib Atrial fibrillation Coronary artery disease, angina presence unspecified, unspecified vessel or lesion type, unspecified whether chemehuevi or transplanted heart Hypertension secondary to other renal disorders documented in this encounter Care Teams Practice Representative Relationship Specialty Start Date End Date Urbano Denis DO [address] [facility] 1 [place] [address] PCP - General 09/03/12 03/17/22 Ruchi Valles RN Nurse Clinic Transplant Surgery 07/30/15 documented as of this encounter
--- OUTSIDE RECORDS SUMMARY | 2024-04-04 13:58 | XMS_ITS | Encounter Summary ---
Author Organization [facility] Address [facility] [place] [address] Care Team Providers Care Edi Specialist Name Role Phone Urbano Denis DO Primary Care Provider [phone] Reason for Visit * Reason Comments Advice Only s/p discuss surgery - lumbar decompression Encounter Details Date Type Department Care Team (Late st Contact Info) Description 04/11/2020 12:30 PM EDT [place] [address] Joseph Ang MD [facility] [address] Spinal stenosis of lumbar region, unspecified whether [...] included. Neurosurgery Pre-operative H&P 04/19/2020 Cody Bolden [id number] CC: Preop discussion - reschedule from [facility] for left L45 MIS decompression HPI: Cody Bolden is a 69 y.o. male presents for continued discussion regarding Dr. Brennanlanned procedure for left L45 decompression. Previous Telehealth Visit Reviewed (Mark Torres 03/27/2020): Thank you for referring your patient Cody Bolden to the Neurosurgery Clinic at [facility] for evaluation of lumbar spinal stenosis. As you know, Mr. Bolden is a pleasant 69 y.o. male who was set to undergo L4-[address] Bradford [facility] complexity of care given [...] small bouts of incontinence. 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 Past medical history is extensive and well documented in his problem list including DM, ME this February and received a stent, and [...] that we would need to get his detective youth bureau's approval to holdapixaban prior to injection and [...] but both his apixaban use status post ME with stent and he is chronic immunosuppression [...] MD at [facility] OR ??? PRO CYSTOURETHROSCOPY, URETER CATHETER Left 06/17/2018 CYSTO, RETROGRADE, URETEROPYELOGRAPHY (WRVU 2.37) performed by Edinson Grider III[facility] ??? PRO REIMPLANT URETER, SINGLE URETER Left 05/20/2016 @URETERONEOCYSTOSTOMY ANASTOMOSIS OF SINGLE URETER TO BLADDER performed by Santosh Arredondo MD at [facility] OR ??? PRO REIMPLANT URETER, SINGLE URETER N/A 05/20/2016 @URETERONEOCYSTOSTOMY ANASTOMOSIS OF SINGLE URETER TO BLADDER performed by Que Amaro MD at [facility] OR ??? PRO TOTAL KNEE ARTHROPLASTY Right 11/25/2017 TOTAL KNEE ARTHROPLASTY (WRVU 20.72) performed by Breezy Dale MD at [facility] OR ??? PRO TRANSPLANT, PREP CADAVER RENAL GRAFT N/A 09/16/2015 @PREPARATION CADAVERIC RENAL ALLOGRAFT performed by Franko Larkin MD at [facility] OR ??? PRO TRANSPLANTATION OF KIDNEY N/A 09/16/2015 @KIDNEY TRANSPLANT, WITHOUT RECIPIENT NEPHRECTOMY performed by Franko Larkin MD at [facility] OR ??? TISSUE TRANSFER kidney ??? US RENAL TRANSPLANT LEFT Left 01/31/2019 US Renal Transplant Left 01/31/2019 [facility] ULTRASOUND ??? US RENAL TRANSPLANT LEFT Left 02/07/2019 US Renal Transplant Left 02/07/2019 [facility] Medications: Current Outpatient Medications on [...] assessed Labs EKG CXR: - sent to [facility] Imaging: Assessment and Plan: At the conclusion of our visit I discussed the risks and benefits of proceeding with MIS Left L45 Decompression (originally scheduled at [facility] with Dr. Maddox but defered by anesthesia). [...] Chair Section of Neurosurgery Department of Surgery [facility] documented in this encounter Plan of Treatment Upcoming Encounters Date Type Department Care Team (Late st Contact Info) Description 04/08/2024 1:40 PM EDT Office Visit Cardiology at [address] [phone] Jay Urban MD [facility] [place] [place] [address] 04/15/2024 10:00 AM EDT Hospital Encounter Non-[place] [address] Arrived documented as of this encounter Goals Goal Patient Goal Type Associated Problems Recent Progress Patient-Stated? Author [facility] Medication Compliance and Understanding Patient Facing Action Plan On track( 017 10:41 AM EDT) No Selena Cisneros, [facility] Note: Patient Goal: Clear hepatitis C Timeframe to meet goal: within 12 weeks of therapy documented as of this encounter Visit Diagnoses Diagnosis Spinal stenosis of lumbar region, unspecified whether neurogenic claudication present documented in this encounter Care Teams Edi Specialist Relationship Specialty Start Date End Date Urbano Denis DO [address] [place] [address] PCP - General 09/03/12 03/17/22 Ruchi Valles RN Nurse Clinic Transplant Surgery 07/30/15 documented as of this encounter
--- OUTSIDE RECORDS SUMMARY | 2024-04-04 13:58 | XMS_ITS | Encounter Summary ---
Author Organization [facility] [place] [address] Care Team Providers Care Traffic Clerk Name Role Phone Adeel Urbano KIRBY Primary Care Provider [phone] Encounter Details Date Type Department Care Team (Late st Contact Info) Description 05/07/2020 10:00 AM [facility] Public [place] [address] COVID-19 ruled out Social History Tobacco Use [...] PM EDT Office Visit Cardiology at [address] [phone] Jay Urban MD [facility] [place] [address] 04/15/2024 10:00 AM EDT Hospital Encounter Non[place] [address] Arrived documented as of this [...] EST) SARS-CoV-2 RNA Not Detected Not Detected [facility] Comment: This result should be [...] diagnosis of COVID-19 is performed using the [employer] RealTime SARS-CoV-2 Assay as authorized by the FDA Emergency Use Authorization (EUA). This EUA assay is intended for In-vitro Diagnostic (IVD) use with respiratory specimens such as nasopharyngeal swabs collected from individuals during the acute phase of infection. This assay is performed based on the instructions for use provided by [employer] and additional guidance provided by CDC and FDA. Testing is performed in the Clinical Genomics and Advanced Technology Laboratory within the Department of Pathology and Laboratory Medicine at 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 Swab [facility] Nasopharyngeal swab (specimen) 05/07/2020 12:36 PM EST 05/07/2020 12:36 PM EST Comment:Symptoms->Asymptomat ic Narrative Resulting Agency Comment Spec In Lab Joseph Ang MD MOLECULAR ORDERABLES [facility] [place] [address] documented in this encounter Visit Diagnoses Diagnosis COVID-19 ruled out documented in this encounter Care Teams Traffic Clerk Relationship Specialty Start Date End Date Urbano Denis DO [address] [place] [address] PCP - General 09/03/12 03/17/22 Hai STANLEY,Ruchi Nurse Clinic Transplant Surgery 07/30/15 documented as of this encounter
--- OUTSIDE RECORDS SUMMARY | 2024-04-04 13:58 | XMS_ITS | Encounter Summary ---
Author Organization [facility] [place] [address] Care Team Providers Care Theatre Professor Name Role Phone Urbano Denis DO Primary Care Provider Encounter Details Date Type Department Care Team (Late st Contact Info) Description 04/11/2020 3:00 PM EDT [place] [address] Social History Tobacco Use Types [...] 1:40 PM EDT Office Visit Cardiology at [address] [phone] Jay Urban MD [facility] [place] [place] [address] 04/15/2024 10:00 AM EDT Hospital Encounter Non-[place] [address] Arrived documented as of this [...] on filedocumented in this encounter Care Teams Theatre Professor Relationship Specialty Start Date End Date Urbano Denis DO [address] [place] [address] [address] [place] [address] PCP - General 09/03/12 03/17/22 Ruchi Valles RN Nurse Clinic Transplant Surgery 07/30/15 documented as of this encounter
--- OUTSIDE RECORDS SUMMARY | 2024-04-04 13:58 | XMS_ITS | Encounter Summary ---
Author Organization [facility] [place] [address] Care Team Providers Care Prop And Effects Designer Name Role Phone Urbano Denis DO Primary Care Provider [phone] Encounter Details Date Type Department Care Team (Latest Contact Info) Description 05/10/2020 7:30 AM EST - 05/10/2020 11:59 PM [facility] Hospital [place] [address] Discharge Disposition: Home Social History Tobacco Use [...] type, unspecified whether chemehuevi or transplanted heart Take 1 tablet by [...] - 05/10/2020 10:30 AM EST [facility] INTRAOPERATIVE MONITORING REPORT Name: Cody Bolden 1950 Date of Surgery: 05/10/2020 Surgeon(s): Joesph Ang MD, Bobby Raygoza MD Surgical Procedure: [...] and abductor hallucis pickup. . CPT Codes: 99107 (EEG); 63089 (EMG 2 limbs); 34718 (EMG anal sphincter); 39580 (upper & lower MEP); 20634 (upper & lower SSEP bilateral); 42698 (IOM, 2 units), 34352 (IOM, 4 units), Total IOMtime: 1 hours, [...] Olga Valencia MD; Jolly Dennison EEG/EP T., [facility]; Servando Alexandre PhD, [facility] Anesthesia: Propofol/opioid, with no muscle relaxant after [...] PM EDT Office Visit Cardiology at [address] [phone] Jay Urban MD [facility] [address] 04/15/2024 10:00 AM EDT Hospital Encounter Non-[place] [address] Arrived documented as of this encounter Goals [...] filedocumented in this encounter Care Teams Prop And Effects Designer Relationship Specialty Start Date End Date Urbano Denis DO [address] [place] [address] [address] [place] [address] PCP - General 09/03/12 03/17/22 Ruchi Valles RN Nurse Clinic Transplant Surgery 07/30/15 documented as of this encounter
--- OUTSIDE RECORDS SUMMARY | 2024-04-04 13:58 | XMS_ITS | Encounter Summary ---
Author Organization [facility] [place] [address] Care Team Providers Care Nuclear Medicine Supervisor Name Role Phone Adeel Urbano KIRBY Primary Care Provider [phone] Reason for Visit * Reason Comments Medication Refill Encounter Details Date Type Department Care Team (Late st Contact Info) Description 04/18/2020 Refill [place] [phone] Tal Eagle MD [facility] [place] [address] Social History Tobacco Use Types Packs/Day Years [...] PM EDT Office Visit Cardiology at [address] [phone] Jay Urban MD [facility] [place] [address] 04/15/2024 10:00 AM EDT Hospital Encounter Non-[place]vasive [place] [phone] Arrived documented as of this encounter Goals [...] on filedocumented in this encounter Care Teams Nuclear Medicine Supervisor Relationship Specialty Start Date End Date Urbano Denis DO [address] [place] [address] [address] [facility] 1 [place] [address] PCP - General 09/03/12 03/17/22 Ruchi Valles RN Nurse Clinic Transplant Surgery 07/30/15 documented as of this encounter
--- OUTSIDE RECORDS SUMMARY | 2024-04-04 13:58 | XMS_ITS | Encounter Summary ---
[place] [address] Care Team Providers Care Product Support Sales Representative Name Role Phone Urbano Denis DO Primary Care Provider Encounter Details Date Type Department Care Team (Late st Contact Info) Description 04/11/2020 2:00 PM EDT Clinical [place] [phone] Social History Tobacco Use Types Packs/Day Years [...] PM EDT Office Visit Cardiology at [address] [phone] Jay Urban MD [facility] [place] [address] 04/15/2024 10:00 AM EDT Hospital Encounter Non[place] [phone] Arrived documented as of this encounter Goals [...] filedocumented in this encounter Care Teams Product Support Sales Representative Relationship Specialty Start Date End Date Urbano Denis DO [address] [place] [address] [address] [place] [address] PCP - General 09/03/12 03/17/22 Ruchi Valles RN Nurse Clinic Transplant Surgery 07/30/15 documented as of this encounter
--- OUTSIDE RECORDS SUMMARY | 2024-04-04 13:58 | XMS_ITS | Encounter Summary ---
Author Organization [facility] [place] [address] Care Team Providers Care Hearing Aid Dispenser Name Role Phone Adeel Urbano KIRBY Primary Care Provider Encounter Details Date Type Department Care Team (Late st Contact Info) Description 05/08/2020 [place] [phone] Nancy Iqbal Social History Tobacco Use Types [...] with patient Best number to reach caller: [phone] Reason for call: Mara calling with questions [...] PM EDT Office Visit Cardiology at [address] [phone] Jay Urban MD [facility] [place] [address] 04/15/2024 10:00 AM EDT Hospital Encounter Non-[place] [phone] Arrived documented as of this encounter Goals Goal Patient Goal Type Associated Problems Recent Progress Patient-Stated? Author [facility] Medication Compliance and Understanding Patient Facing Action Plan On track( 017 10:41 AM EDT) Selena Scott, [facility] Note: Patient Goal: Clear hepatitis C Timeframe to meet goal: within 12 weeks of therapy documented as of this encounter Visit Diagnoses Not on filedocumented in this encounter Care Teams Hearing Aid Dispenser Relationship Specialty Start Date End Date Urbano Denis DO [address] [place] [address] [address] [place] [address] PCP - General 09/03/12 03/17/22 Hai STANLEY,Ruchi Nurse Clinic Transplant Surgery 07/30/15 documented as of this encounter
--- OUTSIDE RECORDS SUMMARY | 2024-04-04 13:58 | XMS_ITS | Encounter Summary ---
Author Organization [facility] Address [facility] [place] [address] Care Team Providers Care Sales Representative Marine Supplies Name Role Phone Adeel Urbano KIRBY Primary Care Provider [phone] Reason for Visit * Consultation (Routine) - Specialty Diagnoses / Procedures Referred By Contac t Referred To Contact Neurosurgery Diagnoses Radiculopathy, lumbar region Lumbar radiculopathy Sona Bradford MD [address] [place] [address] Joseph Ang MD [facility] [place] [address] Referral ID Status Reason Start Date Expiration Date V isits Requested Visits Authorized [id number] Consult, Test & [facility] PCP Updated and/or Approved 03/20/2020 03/20/2021 6 6 Encounter Details Date Type Department Care Team (Latest Contact Info) Description 03/27/2020 11:00 AM EDT TH Visit (TeleHealth) [place] [address] Franko Torres PA [facility] [place] [address] Spinal stenosis of lumbar region, unspecified whether [...] Denis, DO [address] [place] [address] RE: Cody Bolden : [address] Denis: Thank you for referring your patient Cody Bolden to the Neurosurgery Clinic at [facility] for evaluation of lumbar spinal stenosis. As you know, Mr. Bolden is a pleasant 69 y.o. male who was set to undergo L4-[address] Bradford but referred to [facility] due anesthesiology concerns and complexity of care [...] Vitamin D deficiency ??? 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 care home current use of immunosuppressive drug ??? [...] EXTREMITY performed by Que Amaro MD at [facility] MAIN OR ??? PRO CYSTOURETHROSCOPY, URETER CATHETER Left 06/17/2018 CYSTO, RETROGRADE, URETEROPYELOGRAPHY (WRVU 2.37) performed by Edinson Grider III, MD at [facility] FREDIS ??? PRO REIMPLANT URETER, SINGLE URETER Left 05/20/2016 @URETERONEOCYSTOSTOMY ANASTOMOSIS OF SINGLE URETER TO BLADDER performed by Santosh Arredondo MD at [facility] OR ??? PRO REIMPLANT URETER, SINGLE URETER N/A 05/20/2016 @URETERONEOCYSTOSTOMY ANASTOMOSIS OF SINGLE URETER TO BLADDER performed by Que Amaro MD at [facility] OR ??? PRO TOTAL KNEE ARTHROPLASTY Right 11/25/2017 TOTAL KNEE ARTHROPLASTY (WRVU 20.72) performed by Breezy Dale MD at [facility] OR ??? PRO TRANSPLANT, PREP CADAVER RENAL GRAFT N/A 09/16/2015 @PREPARATION CADAVERIC RENAL ALLOGRAFT performed by Franko Larkin MD at [facility] OR ??? PRO TRANSPLANTATION OF KIDNEY N/A 09/16/2015 @KIDNEY TRANSPLANT, WITHOUT RECIPIENT NEPHRECTOMY performed by Franko Larkin MD at [facility] OR ??? US RENAL TRANSPLANT LEFT Left 01/31/2019 US Renal Transplant Left 01/31/2019 [facility] RAD ULTRASOUND ??? US RENAL TRANSPLANT LEFT Left 02/07/2019 US Renal Transplant Left 02/07/2019 [facility] RAD ULTRASOUND SOCIAL HISTORY: Social History Tobacco [...] decompression by Dr. Bradford but referred to [facility] given his medical comorbidities. He has had cardiac clearance for surgery and to come off his OAC, though continuing ASA without stopping for surgery was recommended to lower periop PR and stent thrombosis risk. I explainedthat we [...] minutes. Sincerely, Franko Torres PA-C, MS Physician Precision Instrument Maker And Repairer [facility] Department of Neurosurgery [address] [place], [place] [id number] CC: Urbano Denis DO CC: Urbano Denis DO [address] [place] [address] This message is confidential, intended only for [...] PM EDT Office Visit Cardiology at [address] [phone] Jay Urban MD [facility] [place] [address] 04/15/2024 10:00 AM EDT Hospital Encounter Non-[place] [phone] Arrived documented as of this encounter Goals [...] documented in this encounter Care Teams Sales Representative Marine Supp[employer] Relationship Specialty Start Date End Date Urbano Denis DO [address] [place] [address] PCP - General 09/03/12 03/17/22 Ruchi Valles RN Nurse Clinic Transplant Surgery 07/30/15 documented as of this encounter
--- OUTSIDE RECORDS SUMMARY | 2024-04-04 13:58 | XMS_ITS | Encounter Summary ---
Author Organization [facility] [place] [address] Care Team Providers Care Fresco Artist Name Role Phone Urbano Denis DO Primary Care Provider Encounter Details Date Type Department Care Team (Late st Contact Info) Description 03/28/2020 Telephone [place] [phone] Sonia Alcantar Social History Tobacco Use Types [...] for expediting ~~~~~~~~~~~~~~~~~~~~~~~~~~~~~~~~~~~~~~~~~~~~~~~~~~~~~~~~~~ Franko Torres PA Sent: Nuzhat March 27, 2020 ??1:22 PM To: Joseph Ang MD; P [facility] Neurosurgery Trash Collector Supervisor; Viviana Gardner ?? Follow-up and Dispositions Check-out Note: 1) clinic appt w/ TCR to discuss surgery 2) needs same day H&P and PAT with Anesthesia consult 3) same day lumbar XR (ordered) documented in this encounter Plan of Treatment Upcoming Encounters Date Type Department Care Team (Late st Contact Info) Description 04/08/2024 1:40 PM EDT Office Visit Cardiology at [address] [phone] Jay Urban MD [facility] [place] [address] 04/15/2024 10:00 AM EDT Hospital Encounter Non-[place]vasive [place] [phone] Arrived documented as of this encounter Goals [...] on filedocumented in this encounter Care Teams Fresco Artist Relationship Specialty Start Date End Date Urbano Denis DO [address] [place] [address] PCP - General 09/03/12 03/17/22 Ruchi Valles RN Nurse Clinic Transplant Surgery 07/30/15 documented as of this encounter
--- OUTSIDE RECORDS SUMMARY | 2024-04-04 13:58 | XMS_ITS | Encounter Summary ---
Author Organization [facility] Address [facility] [place] [address] Care Team Providers Care Concrete Block Molder Name Role Phone Urbano Denis DO Primary Care Provider [phone] Reason for Visit * Auth/Cert Specialty Diagnoses [...] Expiration Date Visits Re quested Visits Authorized [id number] 1 1 Encounter Details Date Type Department Care Team (Late st Contact Info) Description 05/10/2020 7:27 AM EST Anesthesia Event [place] [phone] Brian Perez MD [facility] [place] [address] Sonido Gurrola MD [facility] [place] [address] Anesthesia Record Procedure Summary Procedure Name Responsible [...] cephalic vein (lateral side of arm), right; rgml-yab-ckgxtf catheter system; 20 gauge, 1 in length; distraction, tolerated well; 05/10/20; 0713 02/07/19 0315 by Marisela Barnes LPN 05/10/20 0713 by Alonzo Cohen RN (RETIRED) Peripheral IV Line - Single Lumen 05/10/20; 0645; median vein (underside of arm), right; ozoe-iio-mepnzs catheter system; 20 gauge; alonzo cohen; distraction; [...] Time: 1036 05/10/20 0736 by Emerald Carlson LAND CHECKER 05/10/20 1036 by Xochitl Camara Urethral Catheter [...] 0753; metacarpal vein (top of hand), right; lsit-non-svjdkc catheter system; 18 gauge; 05/11/20; 1128 05/10/20 0753 by Emerald Carlson LAND CHECKER 05/11/20 1128 by Germaine Mayer Incision 05/10/20; 0823; back ; LDA not present upon assessment; 01/30/22; 22105/10/20 0823 by Lacho Escamilla RN 01/30/22 0559 by Carmela Martinez RN documented in this [...] OR Notes * Anesthesia Postprocedure Evaluation - Brina Perez MD - 05/10/2020 6:52 PM EST Department of Anesthesiology Post-procedure Note Patient: Cody Bolden Procedure Summary Date: 05/10/20 Room / Location: [facility] OR [address] [place] [address] MAIN OR Anesthesia Start: 726 Anesthesia Stop: [...] All Anesthesia Providers: Anesthesiologist: Brian Perez MD LAND CHECKER: Emerald Carlson CRNA Student Nurse Tube Filler: Xochitl Pitts Vitals Value Taken Time BP 138/58 05/10/20 1230 Temp 36.5 ??C (97.7 ??F) 05/10/20 1040 Pulse 49 05/10/20 1237 Resp 19 05/10/20 1237 SpO2 91 % 05/10/20 1242 Pain Level 0 05/10/20 1200 Vitals shown include unvalidated device data. Patient [facility] Level of Consciousness: Conscious but [...] EXTREMITY performed by uQe Amaro MD at [facility] OR ??? PRO CYSTOURETHROSCOPY, URETER CATHETER Left 06/17/2018 CYSTO, RETROGRADE, URETEROPYELOGRAPHY (WRVU 2.37) performed by Edinson Grider III[facility] ??? PRO REIMPLANT URETER, SINGLE URETER Left 05/20/2016 @URETERONEOCYSTOSTOMY ANASTOMOSIS OF SINGLE URETER TO BLADDER performed by Santosh Arredondo MD at [facility] OR ??? PRO REIMPLANT URETER, SINGLE URETER N/A 05/20/2016 @URETERONEOCYSTOSTOMY ANASTOMOSIS OF SINGLE URETER TO BLADDER performed by Que Amaro MD at [facility] OR ??? PRO TOTAL KNEE ARTHROPLASTY Right 11/25/2017 TOTAL KNEE ARTHROPLASTY (WRVU 20.72) performed by Breezy Dale MD at [facility] OR ??? PRO TRANSPLANT, PREP CADAVER RENAL GRAFT N/A 09/16/2015 @PREPARATION CADAVERIC RENAL ALLOGRAFT performed by Franko Larkin MD at [facility] OR ??? PRO TRANSPLANTATION OF KIDNEY N/A 09/16/2015 @KIDNEY TRANSPLANT, WITHOUT RECIPIENT NEPHRECTOMY performed by Franko Larkin MD at [facility] OR ??? TISSUE TRANSFER kidney ??? US RENAL TRANSPLANT LEFT Left 01/31/2019 US Renal Transplant Left 01/31/2019 [facility] RAD ULTRASOUND ??? US RENAL TRANSPLANT LEFT Left 02/07/2019 US Renal Transplant Left 02/07/2019 [facility] RAD ULTRASOUND Social History Tobacco Use [...] with patient and spouse. Plan discussed with LAND CHECKER. CATA PAT Clinic Note: Date and Time [...] 1:40 PM EDT Office Visit Cardiology at [address] [phone] Jay Urban MD [facility] [place] [address] 04/15/2024 10:00 AM EDT Hospital Encounter Non-Invasive Cardiology Lab [facility] [place] [phone] Arrived documented as of this encounter Goals Goal Patient Goal Type Associated Problems Recent Progress Patient-Stated? Author [facility] Medication Compliance and Understanding Patient Facing [...] bolus injection (Anesthesia) PRN, Starting on Laura 11 at 0734, Until Laura 05/10/20 at 1043, Anesthesia Intra-op Given 05/10/2020 7:34 AM EST 150 mg propofoL (Diprivan) infusion CONTINUOUS PRN, Starting on Laura 11 at 0742, Until Laura 05/10/20 at 1043, Anesthesia Intra-op, Routine Rate/Dose Change 05/10/2020 9:54 AM EST 50 mcg/kg/min 31 mL/hr Rate/Dose Change 05/10/2020 8:24 AM EST 100 mcg/kg/min 61. 9 mL/hr Rate/Dose Change 05/10/2020 7:51 AM EST 80 mcg/kg/min 49.5 mL/hr remifentanil (ULTIVA) 0.02 mg/mL IV infusion (ANESTHESIA) CONTINUOUS PRN, Starting on Laura 05/10/20 at 0742, Until Laura 05/10/20 at 1043, Anesthesia Intra-op Restarted 05/10/2020 8:23 AM EST 0.2 mcg/kg/min 61.9 mL/hr Rate/Dose Change 05/10/2020 7:51 AM EST 0.1 mcg/kg/min 31 mL/hr New Bag 05/10/2020 7:42 AM EST 0.2 mcg/kg/min 61.9 mL/h r rocuronium (ZEMURON) multi-dose injection PRN, Starting on Laura 05/10/20 at 0745, Until Laura 05/10/20 at 1043, Anesthesia Intra-op, Routine Given 05/10/2020 7:45 AM EST 10 mg succinylcholine chloride (Quelicin) injection PRN, Starting on Laura 05/10/20 at 0734, Until Laura 05/10/20 at 1043, Anesthesia Intra-op, Routine Given 05/10/2020 7:34 AM EST 100 mg documented in this encounter Care Teams Concrete Block Molder Relationship Specialty Start Date End Date Urbano Denis DO [address] [place] [address] PCP - General 09/03/12 03/17/22 Ruchi Valles RN Nurse Clinic Transplant Surgery 07/30/15 documented as of this encounter
--- OUTSIDE RECORDS SUMMARY | 2024-04-04 13:58 | XMS_ITS | Encounter Summary ---
Author Organization [facility] [place] [address] Care Team Providers Care Medical Laboratory Technician Name Role Phone Adeel Urbano KIRBY Primary Care Provider [phone] Reason for Visit * Reason Onset Date Comments TeleHealth 06/14/2020 Appt 06/15/20 Encounter Details Date Type Department Care Team (Late st Contact Info) Description 06/14/2020 Tele[place] [address] Karie Reid INTEGRATION ARCHITECT [facility] [place] [address] TeleHealth (Appt 06/15/20) Social History Tobacco Use [...] PM EDT Office Visit Cardiology at [address] [phone] Jay Urban MD [facility] [place] [address] 04/15/2024 10:00 AM EDT Hospital Encounter Non-[place] [phone] Arrived documented as of this encounter Goals [...] filedocumented in this encounter Care Teams Medical Laboratory Technician Relationship Specialty Start Date End Date Urbano Denis DO [address] [place] [address] PCP - General 09/03/12 03/17/22 Ruchi Valles RN Nurse Clinic Transplant Surgery 07/30/15 documented as of this encounter
--- OUTSIDE RECORDS SUMMARY | 2024-04-04 13:58 | XMS_ITS | Encounter Summary ---
Author Organization [facility] [place] [address] Care Team Providers Care Utility Forester Name Role Phone Adeel Urbano KIRBY Primary Care Provider Encounter Details Date Type Department Care Team (Late st Contact Info) Description 06/15/2020 Tele[place] [phone] Sonia Alcantar Social History Tobacco Use Types [...] 06/15/2020 1:04 PM EST Faxed order to [facility] When complete schedule TOV w BCB / send results to B ~~~~~~~~~~~~~~~~~~~~~~~~~~~~~~~~~~~~~~~~~~~~~~~~~~~~~ Karie Reid APRN Sent: ThuJune 15, 2020 12:15 PM To: P [facility] Neuro[place] Technical Manager ?? Follow-up and Dispositions Check-out Note: Follow up lumbar flexion/extension/AP xray. He would like to do it before insurancechanges at the end of June. This can be done at [facility]. Plan: Follow up lumbar, flex and AP films at [facility] before 07/2020 ??then PRN. documented in this encounter Plan of Treatment Upcoming Encounters Date Type Department Care Team (Late st Contact Info) Description 04/08/2024 1:40 PM EDT Office Visit Cardiology at [address] [phone] Jay Urban MD [facility] [place] [address] 04/15/2024 10:00 AM EDT Hospital Encounter Non[place] [address] Arrived documented as of this encounter Goals Goal Patient Goal Type Associated Problems Recent Progress Patient-Stated? Author [facility] Medication Compliance and Understanding Patient Facing Action Plan On track( 017 10:41 AM EDT) No Selena Cisneros, [facility] Note: Patient Goal: Clear hepatitis C Timeframe to meet goal: within 12 weeks of therapy documented as of this encounter Visit Diagnoses Not on filedocumented in this encounter Care Teams Utility Forester Relationship Specialty Start Date End Date Urbano Denis DO [address] [place] [address] PCP - General 09/03/12 03/17/22 Ruchi Valles RN Nurse Clinic Transplant Surgery 07/30/15 documented as of this encounter
--- OUTSIDE RECORDS SUMMARY | 2024-04-04 13:58 | XMS_ITS | Encounter Summary ---
Author Organization [facility] [place] [address] Care Team Providers Care Certified Medical Transcriptionist Name Role Phone Urbano Denis DO Primary Care Provider [phone] Encounter Details Date Type Department Care Team (Latest Contact Info) Description 06/15/2020 9:00 AM EST TH Visit (TeleHealth) [place] [address] Karie Reid, DIRECTOR REGULATORY AGENCY [facility] [place] [address] Herniated lumbar intervertebral disc Social History Tobacco [...] hepatitis) K73.2 ??? Prophylactic immunotherapy Z29.8 ??? 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 Plan: Follow up lumbar, flex and AP films at [facility] before 07/2020 then PRN. Patient verbally consents [...] PM EDT Office Visit Cardiology at [address] [phone] Jay Urban MD [facility] [place] [address] 04/15/2024 10:00 AM EDT Hospital Encounter Non-[place] [phone] Arrived documented as of this encounter Goals [...] myelopathy documented in this encounter Care Teams Certified Medical Transcriptionist Relationship Specialty Start Date End Date Urbano Denis DO [address] [place] [address] PCP - General 09/03/12 03/17/22 Hai STANLEY,Ruchi Nurse Clinic Transplant Surgery 07/30/15 documented as of this encounter
--- OUTSIDE RECORDS SUMMARY | 2024-04-04 13:58 | XMS_ITS | Encounter Summary ---
Author Organization [facility] [place] [address] Care Team Providers Care Vacuum Conditioner Operator Name Role Phone Adeel Urbano KIRBY Primary Care Provider [phone] Encounter Details Date Type Department Care Team (Late st Contact Info) Description 05/09/2020 Tele[place] [address] Devi Preciado Social History Tobacco [...] PM EDT Office Visit Cardiology at [address] [phone] Jay Urban MD [facility] [place] [address] 04/15/2024 10:00 AM EDT Hospital Encounter Non-[place] [address] Arrived documented as of this [...] on filedocumented in this encounter Care Teams Vacuum Conditioner Operator Relationship Specialty Start Date End Date Urbano Denis DO [address] [place] [address] [address] [place] [address] PCP - General 09/03/12 03/17/22 Ruchi Valles RN Nurse Clinic Transplant Surgery 07/30/15 documented as of this encounter
--- OUTSIDE RECORDS SUMMARY | 2024-04-04 13:58 | XMS_ITS | Encounter Summary ---
Author Organization [facility] [place] [address] Care Team Providers Care Esl Instructor Name Role Phone AdeelUrbano boland Primary Care Provider [phone] Encounter Details Date Type Department Care Team (Late st Contact Info) Description 03/27/2020 Notes [place] [address] Joseph Ang MD [facility] [place] [address] Social History Tobacco Use Types Packs/Day Years [...] and note patient scheduling for surgery at [facility] by Dr. Leal due to progressive [...] PM EDT Office Visit Cardiology at [address] [phone] Jay Urban MD [facility] [place] [address] 04/15/2024 10:00 AM EDT Hospital Encounter Non-[place] [address] Arrived documented as of this encounter Goals Goal Patient Goal Type Associated Problems Recent Progress Patient-Stated? Author [facility] Medication Compliance and Understanding Patient Facing Action Plan On track( 017 10:41 AM EDT) No Selena Cisneros, [facility] Note: Patient Goal: Clear hepatitis C Timeframe to meet goal: within 12 weeks of therapy documented as of this encounter Visit Diagnoses Not on filedocumented in this encounter Care Teams Esl Instructor Relationship Specialty Start Date End Date Urbano Denis DO [address] [facility] [place] [address] PCP - General 09/03/12 03/17/22 Ruchi Valles RN Nurse Clinic Transplant Surgery 07/30/15 documented as of this encounter
--- OUTSIDE RECORDS SUMMARY | 2024-04-04 13:58 | XMS_ITS | Encounter Summary ---
[place] [address] Care Team Providers Care Ink Maker Name Role Phone Urbano Denis DO Primary Care Provider [phone] Reason for Visit * Reason Onset Date Comments Post Hospital Discharge 05/14/2020 Encounter Details Date Type Department Care Team (Late st Contact Info) Description 05/14/2020 Telephone [place] [phone] Genoveva Willard, RN Post Hospital Discharge Social [...] PM EST Cody Bolden 1950 69 y.o. [id number] F/U call s/p: L L45 discectomy/decompression Date [...] PM EDT Office Visit Cardiology at [address] [phone] Jay Urban MD [facility] [place] [address] 04/15/2024 10:00 AM EDT Hospital Encounter Non-[place] [address] Arrived documented as of this encounter Goals Goal Patient Goal Type Associated Problems Recent Progress Patient-Stated? Author [facility] Medication Compliance and Understanding Patient Facing Action Plan On track( 017 10:41 AM EDT) No Selena Cisneros, [facility] Note: Patient Goal: Clear hepatitis C Timeframe to meet goal: within 12 weeks of therapy documented as of this encounter Visit Diagnoses Not on filedocumented in this encounter Care Teams Ink Maker Relationship Specialty Start Date End Date Urbano Denis DO [address] [place] [address] [address] PCP - General 09/03/12 03/17/22 Hai STANLEY,Ruchi Nurse Clinic Transplant Surgery 07/30/15 documented as of this encounter
--- OUTSIDE RECORDS SUMMARY | 2024-04-04 13:58 | XMS_ITS | Encounter Summary ---
Author Organization [facility] Address [facility] [place] [address] Care Team Providers Care Vamp Cut Out Worker Name Role Phone Urbano Denis DO Primary Care Provider [phone] Reason for Visit * Auth/Cert Specialty Diagnoses [...] Expiration Date Visits Re quested Visits Authorized [id number] 1 1 Encounter Details Date Type Department Care Team (Late st Contact Info) Description 05/10/2020 7:30 AM EST - 05/10/2020 10:28 AM EST [place] [phone] Joseph Ang MD [facility] [place] [address] LAMINECTOMY, FACETECTOMY & FORAMINOTOMY,LUMBAR, ONE LEVEL (WRVU [...] D deficiency ??? 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 CAH [...] decompression with Dr. Bradford but referred to [facility] due anesthesiology concerns and complexity of care [...] Course: On 05/10/2020, Cody Bolden presented to [facility] for the above mentioned procedure which he [...] below. Electronically signed by: Nadia Hernandez MD, [facility] ([phone]), at 04/11/2020 11:54 AM Xr Lumbar Spine [...] medications known as antiplatelets and anticoagulants. Common dwhk-kgo-wmhvcnc medications which should be avoided include Aspirin, [...] retention Constipation not relieved by diet and/or ixtw-zsw-natvkvk stool softeners and laxatives Nausea/vomiting (upset stomach) [...] your Primary Care Provider or withthe Neurosurgery GRIEVANCE AND APPEALS COORDINATOR/RN. Appointments: Please follow up in the Neurosurgery Clinic in 4-6 weeks. Please call the Neurosurgery Office at [phone] if you do not receive a scheduled appointment within two weeks. Your follow-up appointment will be with: [] Dr. Gomez [x] Dr. Ang [] Dr. Calloway [] Dr. Barrett [] Dr. Gutierrez [] Dr. Stewart [] Dr. Zafar HOW TO REACH NEUROSURGERY Contact your Doctor Office Hours: Thursday through Thursday, 8am-5pm. Call . On weekends or after office hours: Call [phone] and ask the potato chip sacking machine operator to page the Neurosurgery Resident director of provider relations. IMPORTANT PHONE NUMBERS: Outpatient Nurse (Layla Pond) Inpatient Nurses Neurosurgical Resident On-Call (after 5pm or before 8am) Neurosurgery offices (Thursday through Thursday between 8am-5pm): Adult Neurosurgery Dr. Richard Barrett Pediatric Neurosurgery Dr. Franko Calloway Mid-level practitioners Franko Torres, Physician Head Trimmer Cristi Diana, Physician Head Trimmer Yaritza Guzman, Nurse Practitioner Karie Almeida, Nurse Practitioner * Your surgeon may not be yard caller, so be ready to tell about [...] medications known as antiplatelets and anticoagulants. Common unfv-yxz-qwaohfz medications which should be avoided include Aspirin, [...] retention Constipation not relieved by diet and/or wckc-vmg-zfwqtlg stool softeners and laxatives Nausea/vomiting (upset stomach) [...] your Primary Care Provider or withthe Neurosurgery GRIEVANCE AND APPEALS COORDINATOR/RN. Appointments: Please follow up in the Neurosurgery Clinic in 4-6 weeks. Please call the Neurosurgery Office at [phone] if you do not receive a scheduled [...] unspecified vessel or lesion type, unspecified whether [place] or transplanted heart Take 1 tablet by [...] Plan: - Likely home today PLEASE PAGE [phone] WITH QUESTIONS Active Hospital Problems Diagnosis ??? [...] EST Neurosurgery Pre-operative H&P 05/10/2020 Cody Bolden [id number] CC: L Leg pain HPI: Cody [...] [facility] ??? PRO CYSTOURETHROSCOPY, URETER CATHETER Left 06/17/2018 CYSTO, RETROGRADE, URETEROPYELOGRAPHY (WRVU 2.37) [facility] Edinson [facility] III[facility] ??? PRO REIMPLANT URETER, SINGLE URETER Left 05/20/2016 @URETERONEOCYSTOSTOMY ANASTOMOSIS OF SINGLE URETER TO BLADDER performed by Santosh Arredondo MD at [facility] ??? PRO REIMPLANT URETER, SINGLE URETER N/A 05/20/2016 @URETERONEOCYSTOSTOMY ANASTOMOSIS OF SINGLE URETER TO BLADDER performed by Que Amaro MD at [facility] OR ??? PRO TOTAL KNEE ARTHROPLASTY Right 11/25/2017 TOTAL KNEE ARTHROPLASTY (WRVU 20.72) performed by Breezy Dale MD at [facility] ??? PRO TRANSPLANT, PREP CADAVER RENAL GRAFT N/A 09/16/2015 @PREPARATION CADAVERIC RENAL ALLOGRAFT performed by Franko Larkin MD at [facility] ??? PRO TRANSPLANTATION OF KIDNEY N/A 09/16/2015 @KIDNEY TRANSPLANT, WITHOUT RECIPIENT NEPHRECTOMY performed by Franko Larkin MD at [facility] OR ??? TISSUE TRANSFER kidney ??? US RENAL TRANSPLANT LEFT Left 01/31/2019 US Renal Transplant Left 01/31/2019 [facility] RAD ULTRASOUND ??? US RENAL TRANSPLANT LEFT Left 02/07/2019 US Renal Transplant Left 02/07/2019 [facility] RAD ULTRASOUND Medications: No current facility-administered [...] Ang MD - 05/11/2020 1:46 PM EST [facility] Neurosurgetry Operative Note Patient Name: Cody Bolden : [id number] MR#: [id number] ?? Case Date: 05/10/2020 ?? Surgeon: Surgeon(s) [...] and closing). Joseph Ang MD 05/13/2020 Joseph Agn MD MS Professor and Chair Section of Neurosurgery Department of Surgery [facility] * Plan of Care - Duyen Shoemaker [...] (s) achieved Date Met: 05/11/20 05/11/20 0733 Tse[place]s Fall Risk History of Falling 0 Secondary [...] AM EST D/C planning: Team: neurosurg Pager: [phone] Pt to d/c home via private vehicle. Pt/team feel no d/c needs identified at this time. Pt is aware of d/c plan. Shira BELLO, RN CM unix developer Office of Care Management Pager #[phone] * Initial Assessments - Shira Escalante RN [...] care provider on file: Urbano Denis DO [phone] Advance Directive on file and Code Status: Received, Attempt Cardiopulmonary Resuscitation - Inpatient Patient???s Functional Status:ind with mobility and ADL's Living Situation:lives with in [address] [phone] Supports:/family Assessment: Patient with no apparent RNCM/SW needs at this time. No housing, transportation, insurance, resources concerns identified at this time. Supports in place to achieve a safe post-hospital transition. No identified barriers to accessing necessary care and/or follow-up after discharge. Plan: Patient to d/c to home via private vehicle when medically ready. unix developer/Car Sealer will continue to follow patient???s progress and remain available if situation changes for coordination of care, psychosocial support and/or discharge planning. Shira Escalante RN Pager [phone] Extension [phone] * Plan of Care - Magdalena Hanna [...] Ang MD - 05/10/2020 10:25 AM EST [facility] Neurosurgery Brief Operative Note Patient Name: Cody Bolden : [id number] MR#: [id number] Case Date: 05/10/2020 Surgeon: Surgeon(s) and Role: [...] PM EDT Office Visit Cardiology at [address] [phone] Jay Urban MD [facility] [place] [address] 04/15/2024 10:00 AM EDT Hospital Encounter [place] [address] Arrived documented as of this [...] recess stenosis Microsurg Techniques, Req Oper Microscope ([id number]) 05/10/2020 7:27 AM EST Left L45 radiculopathy bilateral lateral recess stenosis Fluoroscopy Exam Up To 1 Hr Phy Or Oth Hlth Care Prov ([id number]) 05/10/2020 7:27 AM EST Left L45 radiculopathy bilateral lateral recess stenosis Laminotomy, Lumbar Disk, 1 Intrsp ([id number]) 05/10/2020 7:27 AM EST Left L45 radiculopathy bilateral lateral recess stenosis Laminec/Facetect/For wagner, Lumbar 1 Seg ([id number]) 05/10/2020 7:27 AM EST Left L45 radiculopathy [...] Glucose, POC 205(H) 65 - 199 mg/dL [facility] Comment: Supplemental ranges: <140 mg/dL before meals <180 mg/dL all other times of the day Blood specimen (specimen) 05/11/2020 11:28 AM EST 05/11/2020 11:28 AM EST Joseph Ang MD POINT OF CARE TEST O RDERABLES [facility] [place] [address] * (ABNORMAL) POCT Glucose (05/11/2020 7:18 AM EST) Glucose, POC 222(H) 65 - 199 mg/dL [facility] Comment: Supplemental ranges: <140 mg/dL before meals <180 mg/dL all other times of the day Blood specimen (specimen) 05/11/2020 7:18 AM EST 05/11/2020 7:18 AM EST Joseph Ang MD POINT OF CARE TEST O RDERABG Performing Organization Address [facility] Co de Phone Number [facility] [place] [address] * POCT Glucose (05/10/2020 4:39 PM EST) Glucose, POC 151 65 - 199 mg/dL [facility] Comment: Supplemental ranges: <140 mg/dL before meals <180 mg/dL all other times of the day Blood specimen (specimen) 05/10/2020 4:39 PM EST 05/10/2020 4:39 PM EST Joseph Ang MD POINT OF CARE TEST O TED Performing Organization Address [facility] de Phone Number [facility] [place] [address] * XR Fluoro No Rad <1Hr - OR Use (05/10/2020 12:32 PM EST) Narrative RAD - 05/10/2020 12:33 PM EST This exam is auto-finalizing. No interpretation was done. Joseph Ang MD IMG FLUORO ORDERABLE S Performing Organization Address [facility] Co de Phone Number [place], [place] * (ABNORMAL) POCT Glucose (05/10/2020 10:47 AM EST) Glucose, POC 221(H) 65 - 199 mg/dL [facility] Comment: Supplemental ranges: <140 mg/dL before meals <180 mg/dL all other times of the day Blood specimen (specimen) 05/10/2020 10:47 AM EST 05/10/2020 10:47 AM EST Joseph Ang MD POINT OF CARE TEST O TED Performing Organization Address [facility] de Phone Number [facility] [place] [address] * POCT Glucose (05/10/2020 8:33 AM EST) Glucose, POC 198 65 - 199 mg/dL [facility] Comment: Supplemental ranges: <140 mg/dL before meals <180 mg/dL all other times of the day Blood specimen (specimen) 05/10/2020 8:33 AM EST 05/10/2020 8:33 AM EST Joseph Ang MD POINT OF CARE TEST O TED Performing Organization Address [facility] de Phone Number [facility] [place] [address] * ABORH Recheck Status (05/10/2020 7:00 AM EST) ABORH Type Recheck Completed [facility] Blood specimen (specimen) 05/10/2020 7:00 AM EST 05/10/2020 7:13 AM EST Narrative Resulting Agency Comment Spec In Lab Emerald Carlson CRNA BLOOD BANK LAB ORDER IGNACIO Performing Organization Address [facility] de Phone Number [facility] [place] [address] * Antibody screen (05/10/2020 7:00 AM EST) Ab Screen Interp Negative [facility] Expires at 2359 on: 05/13/2020 [facility] Blood specimen (specimen) 05/10/2020 7:00 AM EST 05/10/2020 7:13 AM EST Narrative Resulting Agency Comment Spec In Lab Emerald Carlson CRNA BLOOD BANK LAB ORDER IGNACIO Performing Organization Address City/[facility]/ZIP Co de Phone Number [facility] [place] [address] * ABO/Rh Typing (05/10/2020 7:00 AM EST) ABORH Type AB Pos [facility] Blood specimen (specimen) 05/10/2020 7:00 AM EST 05/10/2020 7:13 AM EST Narrative Resulting Agency Comment Spec In Lab Emerald Carlson CRNA BLOOD BANK LAB ORDER IGNACIO Performing Organization Address [facility] Co de Phone Number [facility] [place] [address] * (ABNORMAL) POCT Glucose (05/10/2020 6:21 AM EST) Glucose, POC 201(H) 65 - 199 mg/dL [facility] Comment: Supplemental ranges: <140 mg/dL before meals <180 mg/dL all other times of the day Blood specimen (specimen) 05/10/2020 6:21 AM EST 05/10/2020 6:21 AM EST Joseph Ang MD POINT OF CARE TEST O RDERABLES Performing Organization Address [facility] Co de Phone Number [facility] [place] [address] documented in this encounter Visit Diagnoses Not [...] mg, Oral, ONCE, 1 dose, On Laura /5/20 at 1530, Do not exceed 4000 mg [...] (2.5 mg/mL) injection ONCE PRN, Starting on Thu05/10/20 at 0823, Until Thu05/11/20 at 1546, Intra-Operative (Intra-Procedure), Routine Given 05/10/2020 8:23 AM EST 20 mLs 19- Surgical Site BUpivacaine liposome (PF) (EXPAREL) 1.3 % (13.3 mg/mL) injection for infiltration ONCE PRN, Starting on Thu05/10/20 at 0823, [...] on Thu05/10/20 at 1415, Last dose on 05/12/20 at [...] 4 HOURS PRN, Starting on Thu05/10/20 at 1329, Until Thu05/11/20 at 1546, Pain, [...] dose on Thu05/10/20 at 1415, Until Discontinued, Dissolve tablets in [...] on Thu05/10/20 at 1415, Until Discontinued, Routine Given 05/11/2020 9:37 AM EST 2 tablets Given 05/10/2020 8:56 PM EST 2 tablets Given 05/10/2020 4:45 PM EST 2 tablets sodium chloride 0.9 % (flush) flush 5 mL 5 mL, Intravenous, 2 TIMES DAILY, First dose on Thu05/10/20 at 1415, Until Discontinued, Recovery (Recovery-Hospital Unit), [...] (Bovine) (THROMBINAR) kit ONCE PRN, Starting on Thu05/10/20 at 0823, [...] on Thu05/10/20 at 1700, Until Discontinued, Routine 164 (Given [...] 0815, Routine 1645 (Given - Provider: Duyen Shoemaker RN)2056 (Given - Provider: Magdalena Hanna RN) 0157 (Given - Provider: Magdalena Hanna RN)0733 [...] dose on Thu05/10/20 at 1415, Until Discontinued, Dissolve tablets in [...] Intravenous, 2 TIMES DAILY, First dose on Thu05/10/20 at 1415, Until Discontinued, Recovery (Recovery-Hospital Unit), Routine 1646 (Given - Provider: Duyen Shoemaker RN)2099 (Given - Provider: Magdalena Hanna RN) 0938 (Given - Provider: Duyen Shoemaker RN) tacrolimus (Prograf) capsule 1 mg(Linked Group 3) 1 mg, Oral, NIGHTLY, First dose on 05/10/20 at 2100, Until Discontinued, DO NOT [...] RN) 0157 (Given - Provider: Magdalena Hanna, RN) polyethylene glycoL (Miralax) packet 17 g [...] Laura 05/10/20 at 1530, Give per rectum (IN) if unable to take PO. Do not [...] Routine documented in this encounter Care Teams Vamp Cut Out Worker Relationship Specialty Start Date End Date Urbano Denis DO [address] [place], [place] [address]Y [facility] [address] [place] [address] PCP - General 09/03/12 03/17/22 Ruchi Valles RN Nurse Clinic Transplant Surgery 07/30/15 documented as of this encounter
--- OUTSIDE RECORDS SUMMARY | 2024-04-04 13:58 | XMS_ITS | Encounter Summary ---
[place] [address] Care Team Providers Care Concrete Pointer Name Role Phone AdeelUrbano toscano Primary Care Provider [phone] Reason for Visit * Reason Onset Date Comments Results 05/08/2020 Negative Covid Encounter Details Date Type Department Care Team (Late st Contact Info) Description 05/08/2020 [place] [address] Huyen Garrison RN Results (Negative Covid) Social [...] 1:40 PM EDT Office Visit Cardiology at [address] [phone] Jay Urban MD [facility] [place] [address] 04/15/2024 10:00 AM EDT Hospital Encounter [place] [address] Arrived documented as of this encounter Goals Goal Patient Goal Type Associated Problems Recent Progress Patient-Stated? Author [facility] Medication Compliance and Understanding Patient Facing Action Plan On track( 017 10:41 AM EDT) No Selena Cisneros, [facility] Note: Patient Goal: Clear hepatitis C Timeframe to meet goal: within 12 weeks of therapy documented as of this encounter Visit Diagnoses Not on filedocumented in this encounter Care Teams Concrete Pointer Relationship Specialty Start Date End Date Urbano Denis DO [address] [place] [address] PCP - General 09/03/12 03/17/22 Ruchi Valles RN Nurse Clinic Transplant Surgery 07/30/15 documented as of this encounter
--- OUTSIDE RECORDS SUMMARY | 2024-04-04 13:58 | XMS_ITS | Encounter Summary ---
Author Organization [facility] [place] [address] Care Team Providers Care Fire Ranger Name Role Phone Urbano Denis DO Primary Care Provider Encounter Details Date Type Department Care Team (Late st Contact Info) Description 06/15/2020 Orders [place] [address] Layla Pond RN Spinal stenosis [...] PM EDT Office Visit Cardiology at [address] [phone] Jay Urban MD [facility] [place] [address] 04/15/2024 10:00 AM EDT Hospital Encounter Non-Invasive [place] [address] Arrived documented as of this encounter Goals [...] present documented in this encounter Care Teams Fire Ranger Relationship Specialty Start Date End Date Urbano Denis DO [address] [place] [address] PCP - General 09/03/12 03/17/22 Ruchi Valles RN Nurse Clinic Transplant Surgery 07/30/15 documented as of this encounter
--- OUTSIDE RECORDS SUMMARY | 2024-04-04 13:58 | XMS_ITS | Encounter Summary ---
Author Organization [facility] Address [facility] [place] [address] Care Team Providers Care Auto Service Mechanic Name Role Phone Urbano Denis DO Primary Care Provider Encounter Details Date Type Department Care Team (Latest Contact Info) Description 04/11/2020 10:45 AM EDT - 04/11/2020 11:59 PM EDT Hospital Encounter XRay at [address] [place] [address] Joseph nAg MD [facility] [place] [address] Spinal stenosis of lumbar region, unspecified whether [...] unspecified vessel or lesion type, unspecified whether [place] or transplanted heart Take 1 tablet by [...] PM EDT Office Visit Cardiology at [address] [phone] Jay Urban MD [facility] [place] [address] 04/15/2024 10:00 AM EDT Hospital Encounter Non-[place] [phone] Arrived documented as of this encounter Goals Goal Patient Goal Type Associated Problems Recent Progress Patient-Stated? Author [facility] Medication Compliance and Understanding Patient Facing [...] ? Electronically signed by: Nadia Hernandez MD, [facility] ([phone]), at 04/11/2020 11:54 AM Narrative 04/11/2020 11:54 [...] number below. Electronically signed by: [facility] ([phone]), at 04/11/2020 11:54 AM Joseph Ang MD [...] the number below. ? Electronically signed by: eJmma Pyle MD, [facility] ([phone]), at 04/11/2020 2:20 PM Narrative 04/11/2020 2:20 [...] below. Electronically signed by: Jemma Pyle MD, [facility]([phone]), at 04/11/2020 2:20 PM Joseph Ang MD IMG DX ORDERABLES documented in this encounter Visit Diagnoses Diagnosis Spinal stenosis of lumbar region, unspecified whether neurogenic claudication present documented in this encounter Care Teams Auto Service Mechanic Relationship Specialty Start Date End Date Urbano Denis DO [address] [place] [address] PCP - General 09/03/12 03/17/22 Ruchi Valles RN Nurse Clinic Transplant Surgery 07/30/15 documented as of this encounter
--- OUTSIDE RECORDS SUMMARY | 2024-04-04 13:58 | XMS_ITS | Encounter Summary ---
Author Organization [facility] [place] [address] Care Team Providers Care Rn Transitional Name Role Phone AdeelUrbano Primary Care Provider Encounter Details Date Type Department Care Team (Late st Contact Info) Description 04/19/2020 Telephone [place] [phone] Layla Pond RN Social History Tobacco Use [...] - 04/19/2020 4:16 PM EDT Cody Bolden [id number] Caller: Mara () Reason for call: [...] PM EDT Office Visit Cardiology at [address] [phone] Jay Urban MD [facility] [place] [address] 04/15/2024 10:00 AM EDT Hospital Encounter Non-[place]vasive [place] [address] Arrived documented as of this encounter Goals Goal Patient Goal Type Associated Problems Recent Progress Patient-Stated? Author [facility] Medication Compliance and Understanding Patient Facing Action Plan On track( 017 10:41 AM EDT) No Selena Cisneros, [facility] Note: Patient Goal: Clear hepatitis C Timeframe to meet goal: within 12 weeks of therapy documented as of this encounter Visit Diagnoses Not on filedocumented in this encounter Care Teams Rn Transitional Relationship Specialty Start Date End Date Urbano Denis DO [address] [place] [address] [facility] [address] [place] [address] PCP - General 09/03/12 03/17/22 Ruchi Valles RN Nurse Clinic Transplant Surgery 07/30/15 documented as of this encounter
--- OUTSIDE RECORDS SUMMARY | 2024-04-04 13:58 | XMS_ITS | Encounter Summary ---
Author Organization [facility] [place] [address] Care Team Providers Care Floor Director Name Role Phone Urbano Denis DO Primary Care Provider [phone] Encounter Details Date Type Department Care Team (Latest Contact Info) Description 04/11/2020 2:00 PM EDT [place] [address] Spinal stenosis of lumbar region, unspecified whether [...] 1:40 PM EDT Office Visit Cardiology at [address] [phone] Jay Urban MD [facility] [address] [place] [address] 04/15/2024 10:00 AM EDT Hospital Encounter Non-[place] [address] Arrived documented as of this [...] RBC, Urine 6(H) 0 - 3 /HPF [facility] WBC, Urine 1 0 - 3 /HPF [facility] Urine specimen obtained by clean catch procedure (specimen) 04/11/2020 2:50 PM EDT 04/11/2020 3:16 PM EDT Narrative Resulting Agency Comment Spec In Lab Joseph Ang MD URINE ORDERABLES [facility] [place] [address] * (ABNORMAL) Urinalysis with reflex Culture (04/11/2020 [...] [facility] pH, Urn (dipstick) 6.5 5.0 - 8.0 [facility] Blood, Urine Dipstick Negative Negative mg/dL [facility] Ketone, Urine Dipstick Negative Negative mg/dL [facility] Nitrite, Urine Dipstick Negative Negative [facility] Leukocytes, Urine Dipstick Negative Negative [facility] Appearance, Urine Dipstick Clear Clear [facility] Specific [place] Urine Automated 1.019 1.006 - 1.030 [facility] Color, Urine Dipstick Yellow Yellow [facility] Reflex to Culture No [facility] Urine specimen obtained by clean catch procedure (specimen) 04/11/2020 2:50 PM EDT 04/11/2020 3:16 PM EDT Narrative Resulting Agency Comment Spec In Lab Joseph Ang MD URINE ORDERABLES [facility] [place] [address] * Differential, Automated (04/11/2020 2:45 PM EDT) Neutrophil % 70.6 % [facility] Neutrophil Absolute 5.91 1.70 - 6.10 x10(3)/[facility] Lymph % 18.2 % [facility] Lymphocytes Abs 1.5 0.9 - 3.2 x10(3)/[facility] Monocyte % 6.5 % [facility] Monocyte Abs 0.5 0.3 - 0.9 x10(3)/[facility] Eos % 3.5 % [facility] Eosinophils Abs 0.3 0.0 - 0.4 x10(3)/[facility] Basophil % 0.7 % [facility] Baso Absolute 0.1 0.0 - 0.1 x10(3)/[facility] Immature Gran % 0.50 % [facility] Comment: Immature granulocytes(IG's)percentage and absolute count will include metamyelocytes, myelocytes, and promyelocytes. Blood smears from CBCs yielding IG's will be scanned manually for concordance. If this scan disagrees with the automated IG or if promyelocytes are noted, a manual differential will be performed. Immature Gran Absolute 0.04 0.00 - 0.04 x10(3)/[facility] Blood specimen (specimen) 04/11/2020 2:45 PM EDT 04/11/2020 3:18 PM EDT Narrative Resulting Agency Comment Spec In Lab Joseph Ang MD HEMATOLOGY ORDERABLE S [facility] [place] [address] * Hemogram (04/11/2020 2:45 PM EDT) [facility] White Blood Cell 8.4 4.0 - 9.5 x10(3)/[facility] Red Blood Cell 5.11 4.58 - 5.54 x10(6)/[facility] Hemoglobin 15.9 13.7 - 16.5 gm/dL [facility] Hematocrit 45.0 40.5 - 48.5 % [facility] Mean Cell Volume 88.1 82.9 - 93.1 fL [facility] Mean Cell Hemoglobin 31.1 27.5 - 32.1 pg [facility] Mean Cell Hemoglobin Concentration 35.3 32.0 - 35.7 gm/dL [facility] Platelet 280 145 - 357 x10(3)/[facility] RDW Standard Deviation 41.5 36.0 - 45.0 [facility] RDW coefficient of variation 12.8 11.4 - 13.8 % [facility] Mean Platelet Volume 9.8 7.6 - 12.9 [facility] NRBC% auto 0.0 % [facility] NRBC Absolute 0.000 0.000 - 0.000 x10(3)/[facility] Blood specimen (specimen) 04/11/2020 2:45 PM EDT 04/11/2020 3:18 PM EDT Narrative Resulting Agency Comment Spec In Lab Joseph Ang MD HEMATOLOGY ORDERABLE S Performing Organization Address City/[facility]/ZIP Co de Phone Number [facility] [place] [address] * (ABNORMAL) Electrolytes panel (04/11/2020 2:45 PM EDT) [facility] Sodium 138 135 - 145 mmol/L [facility] Potassium 3.4(L) 3.5 - 5.0 mmol/L [facility] Comment: Please note: ??Patients with WBC >100,000 may have falsely elevated Potassium levels. ??For accurate Potassium quantification in these patients send serum separator tube (gold top) for subsequent determinations. ??Contact the Clinical Chemistry Laboratory if there are any questions. Chloride 99 98 - 107 mmol/L [facility] Carbon Dioxide 26 22 - 31 mmol/L [facility] Anion Gap 13 5 - 15 mmol/L [facility] Blood specimen (specimen) 04/11/2020 2:45 PM EDT 04/11/2020 3:18 PM EDT Narrative Resulting Agency Comment Spec In Lab Joseph Ang MD CHEMISTRY ORDERABLES Performing Organization Address [facility]/ZIP Co de Phone Number [facility] [place] [address] * BUN (04/11/2020 2:45 PM EDT) Blood Urea Nitrogen 16 10 - 20 mg/dL [facility] Blood specimen (specimen) 04/11/2020 2:45 PM EDT 04/11/2020 3:18 PM EDT Narrative Resulting Agency Comment Spec In Lab Joseph Ang MD CHEMISTRY ORDERABLES Performing Organization Address [facility] Co de Phone Number [facility] [place] [address] * (ABNORMAL) Creatinine (04/11/2020 2:45 PM EDT) Creatinine 1.22 0.80 - 1.50 mg/dL [facility] Est Glomerular Filtration Rate 59(L) >=60 mL/min/1.7 3 m?? [facility] Comment: The eGFR was calculated using the CKD-EPI equation. As with all creatinine based estimates of kidney function, eGFR values calculated with the CKD-EPI equation are not accurate in patients with acute kidney failure, extremes of body mass or the acutely ill. [email or web address]Enkf eGFR 69 >=60 mL/min/1.7 3 m?? [facility] Comment: The eGFR was calculated using the CKD-EPI equation. As with all creatinine based estimates of kidney function, eGFR values calculated with the CKD-EPI equation are not accurate in patients with acute kidney failure, extremes of body mass or the acutely ill. [email or web address] Blood specimen (specimen) 04/11/2020 2:45 PM EDT 04/11/2020 3:18 PM EDT Narrative Resulting Agency Comment Spec In Lab Joseph Ang MD CHEMISTRY ORDERABLES Performing Organization Address [facility] de Phone Number [facility] [place] [address] * (ABNORMAL) Prothrombin Time (04/11/2020 2:45 PM EDT) Prothrombin Time 13.9(H) 9.4 - 12.5 sec [facility] International Normalization Ratio 1.2 [facility] Comment: An INR <2.0 indicates [...] MD HEMATOLOGY ORDERABLE S Performing Organization Address [facility] Co de Phone Number [facility] [place] [address] * APTT (04/11/2020 2:45 PM EDT) Partial Thromboplastin Time 32 25 - 37 sec [facility] Comment: The PTT is NOT appropriate for heparin monitoring. Use the Anti-Xa level for heparin monitoring (HEP UFH) or LMWH monitoring (HEP LMW). A PTT less than 37 seconds generally indicates adequate hemostasis. Blood specimen (specimen) 04/11/2020 2:45 PM EDT 04/11/2020 3:18 PM EDT Narrative Resulting Agency Comment Spec In Lab Joseph Ang MD HEMATOLOGY ORDERABLE S Performing Organization Address City/State/[facility] Co de Phone Number [facility] [place] [address] documented in this encounter Visit Diagnoses Diagnosis Spinal stenosis of lumbar region, unspecified whether neurogenic claudication present documented in this encounter Care Teams Floor Director Relationship Specialty Start Date End Date Urbano Denis DO [address] [place] [address] PCP - General 09/03/12 03/17/22 Ruchi Valles RN Nurse Clinic Transplant Surgery 07/30/15 documented as of this encounter
--- OUTSIDE RECORDS SUMMARY | 2024-04-04 13:58 | XMS_ITS | Encounter Summary ---
Author Organization [facility] [place] [address] Care Team Providers Care Analyst Business Analysis Name Role Phone AdeelUrbano toscano Primary Care Provider Encounter Details Date Type Department Care Team (Late st Contact Info) Description 03/27/2020 Orders [place] [phone] Joseph Ang MD [facility] [place] [address] Spinal stenosis of lumbar region, unspecified whether [...] PM EDT Office Visit Cardiology at [address] [phone] Jay Urabn MD [facility] [place] [address] 04/15/2024 10:00 AM EDT Hospital Encounter Non[place] [address] Arrived documented as of this [...] [facility] Protein, Urine Dipstick 100(A) Negative mg/dL [facility] Bilirubin, [...] [facility] pH, Urn (dipstick) 6.5 5.0 - 8.0 [facility] Blood, Urine Dipstick Negative Negative mg/dL [facility] Ketone, Urine Dipstick Negative Negative mg/dL [facility] Nitrite, Urine Dipstick Negative Negative [facility] Leukocytes, Urine Dipstick Negative Negative [facility] Appearance, Urine Dipstick Clear Clear [facility] Specific [place] Urine Automated 1.019 1.006 - 1.030 [facility] Color, Urine Dipstick Yellow Yellow [facility] Reflex to Culture No [facility] Urine specimen obtained by clean catch procedure (specimen) 04/11/2020 2:50 PM EDT 04/11/2020 3:16 PM EDT Narrative Resulting Agency Comment Spec In Lab Joseph Ang MD URINE ORDERABLES Performing Organization Address [facility] Co de Phone Number [facility] [place] [address] * APTT (04/11/2020 2:45 PM EDT) Partial Thromboplastin Time 32 25 - 37 sec [facility] Comment: The PTT is [...] S Performing Organization Address [facility] Co de Phone Number [facility] [place] [address] * (ABNORMAL) Prothrombin Time (04/11/2020 2:45 PM EDT) Prothrombin Time 13.9(H) 9.4 - 12.5 sec [facility] International Normalization Ratio 1.2 [facility] Comment: An INR <2.0 [...] S Performing Organization Address [facility] Co de Phone Number [facility] [place] [address] * (ABNORMAL) Creatinine (04/11/2020 2:45 PM EDT) Creatinine 1.22 0.80 - 1.50 mg/dL [facility] Est Glomerular Filtration Rate 59(L) >=60 mL/min/1.7 3 m?? [facility] Comment: The eGFR was calculated using the CKD-EPI equation. As with all creatinine based estimates of kidney function, eGFR values calculated with the CKD-EPI equation are not accurate in patients with acute kidney failure, extremes of body mass or the acutely ill. http://[employer]/[facility] CITYnkf eGFR 69 >=60 mL/min/1.7 3 m?? [facility] Comment: The eGFR was calculated using the CKD-EPI equation. As with all creatinine based estimates of kidney function, eGFR values calculated with the CKD-EPI equation are not accurate in patients with acute kidney failure, extremes of body mass or the acutely ill. http://[employer]/[facility] CITYnk[facility] Blood specimen (specimen) 04/11/2020 2:45 PM EDT 04/11/2020 3:18 PM EDT Narrative Resulting Agency Comment Spec In Lab Joseph Ang MD CHEMISTRY ORDERABLES Performing Organization Address [facility] Co de Phone Number [facility] [place] [address] * BUN (04/11/2020 2:45 PM EDT) Blood Urea Nitrogen 16 10 - 20 mg/dL [facility] Blood specimen (specimen) 04/11/2020 2:45 PM EDT 04/11/2020 3:18 PM EDT Narrative Resulting Agency Comment Spec In Lab Joseph Ang MD CHEMISTRY ORDERABLES Performing Organization Address [facility] Co de Phone Number [facility] [place] [address] * (ABNORMAL) Electrolytes panel (04/11/2020 2:45 PM EDT) Sodium 138 135 - 145 mmol/L [facility] Potassium 3.4(L) 3.5 - 5.0 mmol/L [facility] Comment: Please note: ??Patients with WBC >100,000 may have falsely elevated Potassium levels. ??For accurate Potassium quantification in these patients send serum separator tube (gold top) for subsequent determinations. ??Contact the Clinical Chemistry Laboratory if there are any questions. Chloride 99 98 - 107 mmol/L [facility] Carbon Dioxide 26 22 - 31 mmol/L [facility] Anion Gap 13 5 - 15 mmol/L [facility] Blood specimen (specimen) 04/11/2020 2:45 PM EDT 04/11/2020 3:18 PM EDT Narrative Resulting Agency Comment Spec In Lab Joseph Ang MD CHEMISTRY ORDERABLES [facility] [place] [address] * XR Chest PA & Lateral (Generic) [...] ? Electronically signed by: Nadia Hernandez MD, [facility] ([phone]), at 04/11/2020 11:54 AM Narrative 04/11/2020 11:54 [...] below. Electronically signed by: Nadia Hernandez MD, [facility] ([phone]), at 04/11/2020 11:54 AM Joseph Ang MD [...] ? Electronically signed by: Jemma Pyle MD, [facility] ([phone]), at 04/11/2020 2:20 PM Narrative 04/11/2020 2:20 [...] present documented in this encounter Care Teams Analyst Business Analysis Relationship Specialty Start Date End Date Urbano Denis DO [address] [place] [address] PCP - General 09/03/12 03/17/22 Ruchi Valles RN Nurse Clinic Transplant Surgery 07/30/15 documented as of this encounter
--- OUTSIDE RECORDS SUMMARY | 2024-04-04 13:58 | XMS_ITS | Encounter Summary ---
Author Organization [facility] Address [facility] [place] [address] Care Team Providers Care Manager Inside Name Role Phone Urbano Denis DO Primary Care Provider [phone] Reason for Visit * Auth/Cert Specialty Diagnoses [...] Expiration Date Visits Re quested Visits Authorized [id number] 1 1 Encounter Details Date Type Department Care Team (Latest Contact Info) Description 05/10/2020 5:41 AM EST - 05/11/2020 1:46 PM EST Hospital Encounter [place] [phone] Joseph Ang MD [facility] [place] [address] Discharge Disposition: Home Social History Tobacco Use [...] Vitamin D deficiency ??? 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 CAH [...] decompression with Dr. Bradford but referred to [facility] due anesthesiology concerns and complexity of care [...] Course: On 05/10/2020, Cody Bolden presented to [facility] for the above mentioned procedure which he [...] below. Electronically signed by: Nadia Hernandez MD, [facility] ([phone]), at 04/11/2020 11:54 AM Xr Lumbar Spine [...] medications known as antiplatelets and anticoagulants. Common tqen-qrh-azgdifk medications which should be avoided include Aspirin, [...] retention Constipation not relieved by diet and/or wxcb-ftj-sdkfrvd stool softeners and laxatives Nausea/vomiting (upset stomach) [...] your Primary Care Provider or withthe Neurosurgery MEAT TEAM MEMBER/RN. Appointments: Please follow up in the Neurosurgery Clinic in 4-6 weeks. Please call the Neurosurgery Office at [phone] if you do not receive a scheduled appointment within two weeks. Your follow-up appointment will be with: [] Dr. Gomez [x] Dr. Ang [] Dr. Calloway [] Dr. Barrett [] Dr. Gutierrez [] Dr. Stewart [] Dr. Zafar HOW TO REACH NEUROSURGERY Contact your Doctor Office Hours: Thursday through Thursday, 8am-5pm. Call . On weekends or after office hours: Call [phone] and ask the cloth doubling machine operator to page the Neurosurgery Resident balloon artist. IMPORTANT PHONE NUMBERS: Outpatient Nurse (Layla Pond) Inpatient Nurses Neurosurgical Resident On-Call (after 5pm or before 8am) Neurosurgery offices (Thursday through Thursday between 8am-5pm): Adult Neurosurgery Dr. Richard Barrett Pediatric Neurosurgery Dr. Franko Calloway Mid-level practitioners Franko Torres, Physician Banquet Server Cristi Diana, Physician Banquet Server Yaritza Guzman, Nurse Practitioner Karie Almeida, Nurse Practitioner * Your surgeon may not be on call, so be ready to tell about yourself [...] medications known as antiplatelets and anticoagulants. Common nsgj-wzp-ajzyjfk medications which should be avoided include Aspirin, [...] retention Constipation not relieved by diet and/or mdku-xyp-nasnkvt stool softeners and laxatives Nausea/vomiting (upset stomach) [...] your Primary Care Provider or withthe Neurosurgery MEAT TEAM MEMBER/RN. Appointments: Please follow up in the Neurosurgery Clinic in 4-6 weeks. Please call the Neurosurgery Office at [phone] if you do not receive a scheduled [...] unspecified vessel or lesion type, unspecified whether [place] or transplanted heart Take 1 tablet by [...] Plan: - Likely home today PLEASE PAGE [phone] WITH QUESTIONS Active Hospital Problems Diagnosis ??? [...] Vitamin D deficiency ??? 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 [facility] current use of immunosuppressive drug ??? CAH [...] EST Neurosurgery Pre-operative H&P 05/10/2020 Cody Bolden [id number] CC: L Leg pain HPI: Cody [...] EXTREMITY performed by Que Amaro MD at [facility] OR ??? PRO CYSTOURETHROSCOPY, URETER CATHETER Left 06/17/2018 CYSTO, RETROGRADE, URETEROPYELOGRAPHY (WRVU 2.37) performed [facility] Edinson Grider III[facility] ??? PRO REIMPLANT URETER, SINGLE URETER [...] at [facility] OR ??? TISSUE TRANSFER kidney ??? US RENAL TRANSPLANT LEFT Left 01/31/2019 US Renal Transplant Left 01/31/2019 [facility] RAD ULTRASOUND ??? US RENAL TRANSPLANT LEFT Left 02/07/2019 US Renal Transplant Left 02/07/2019 [facility] RAD ULTRASOUND Medications: No current facility-administered [...] Ang MD - 05/11/2020 1:46 PM EST [facility] Neurosurgetry Operative Note Patient Name: Cody Bolden : [id number] MR#: [id number] ?? Case Date: 05/10/2020 ?? Surgeon: Surgeon(s) [...] Section of Neurosurgery Department of Surgery [facility] * Plan of Care - Duyen [...] AM EST D/C planning: Team: neurosurg Pager: [phone] Pt to d/c home via private vehicle. Pt/team feel no d/c needs identified at this time. Pt is aware of d/c plan. Shira Escalante MSN, RN CM certified control systems technician Office of Care Management Pager #[phone] * Initial Assessments - Shira Escalante RN [...] care provider on file: Urbano Denis DO [phone] Advance Directive on file and Code Status: Received, Attempt Cardiopulmonary Resuscitation - Inpatient Patient???s Functional Status:ind with mobility and ADL's Living Situation:lives with in [address] [phone] Supports:/family Assessment: Patient with no apparent RNCM/SW needs at this time. No housing, transportation, insurance, resources concerns identified at this time. Supports in place to achieve a safe post-hospital transition. No identified barriers to accessing necessary care and/or follow-up after discharge. Plan: Patient to d/c to home via private vehicle when medically ready. certified control systems technician/Rag Collector will continue to follow patient???s progress and remain available if situation changes for coordination of care, psychosocial support and/or discharge planning. Shira Escalante RN Pager [phone] Extension [phone] * Plan of Care - Magdalena Hanna [...] Ang MD - 05/10/2020 10:25 AM EST [facility] Neurosurgery Brief Operative Note Patient Name: Cody Bolden : [id number] MR#: [id number] Case Date: 05/10/2020 Surgeon: Surgeon(s) and Role: [...] PM EDT Office Visit Cardiology at [address] [phone] Jay Urban MD [facility] [place] [address] 04/15/2024 10:00 AM EDT Hospital Encounter Non-[place] [address] Arrived documented as of this encounter Goals Goal Patient Goal Type Associated Problems Recent Progress Patient-Stated? Author [facility] Medication Compliance and Understanding Patient Facing Action Plan On track( 017 10:41 AM EDT) No Selena Cisneros, [facility] Note: Patient Goal: [...] recess stenosis Microsurg Techniques, Req Oper Microscope (17787) 05/10/2020 7:27 AM EST Left L45 radiculopathy bilateral lateral recess stenosis Fluoroscopy Exam Up To 1 Hr Phy Or Oth Hlth Care Prov ([id number]) 05/10/2020 7:27 AM EST Left L45 radiculopathy bilateral lateral recess stenosis Laminotomy, Lumbar Disk, 1 Intrsp ([id number]) 05/10/2020 7:27 AM EST Left L45 radiculopathy bilateral lateral recess stenosis Laminec/Facetect/For wagner, Lumbar 1 Seg ([id number]) 05/10/2020 7:27 AM EST Left L45 radiculopathy [...] Glucose, POC 205(H) 65 - 199 mg/dL [facility] Comment: Supplemental ranges: <140 mg/dL before meals <180 mg/dL all other times of the day Blood specimen (specimen) 05/11/2020 11:28 AM EST 05/11/2020 11:28 AM EST Joseph Ang MD POINT OF CARE TEST O RDERABLES [facility] [place] [address] * (ABNORMAL) POCT Glucose (05/11/2020 7:18 AM EST) Glucose, POC 222(H) 65 - 199 mg/dL [facility] Comment: Supplemental ranges: <140 mg/dL before meals <180 mg/dL all other times of the day Blood specimen (specimen) 05/11/2020 7:18 AM EST 05/11/2020 7:18 AM EST Joseph Ang MD POINT OF CARE TEST O TED Performing Organization Address City/[facility] Co de Phone Number [facility] [place] [place] [address] * POCT Glucose (05/10/2020 4:39 PM EST) Glucose, POC 151 65 - 199 mg/dL [facility] Comment: Supplemental ranges: <140 mg/dL before meals <180 mg/dL all other times of the day Blood specimen (specimen) 05/10/2020 4:39 PM EST 05/10/2020 4:39 PM EST Joseph Ang MD POINT OF CARE TEST Mario JAEN Performing Organization Address [facility] Co de Phone Number [facility] [place] [address] * XR Fluoro No Rad <1Hr - OR Use (05/10/2020 12:32 PM EST) Narrative RAD - 05/10/2020 12:33 PM EST This exam is auto-finalizing. No interpretation was done. Joseph Ang MD IMG FLUORO ORDERABLE S Performing Organization Address [facility] Co de Phone Number RAD [place], [place] * (ABNORMAL) POCT Glucose (05/10/2020 10:47 AM EST) Glucose, POC 221(H) 65 - 199 mg/dL [facility] Comment: Supplemental ranges: <140 mg/dL before meals <180 mg/dL all other times of the day Blood specimen (specimen) 05/10/2020 10:47 AM EST 05/10/2020 10:47 AM EST Joseph Ang MD POINT OF CARE TEST O TED Performing Organization Address [facility] de Phone Number [facility] [place] [address] * POCT Glucose (05/10/2020 8:33 AM EST) Glucose, POC 198 65 - 199 mg/dL [facility] Comment: Supplemental ranges: <140 mg/dL before meals <180 mg/dL all other times of the day Blood specimen (specimen) 05/10/2020 8:33 AM EST 05/10/2020 8:33 AM EST Joseph Ang MD POINT OF CARE TEST O TED Performing Organization Address [facility] Phone Number [facility] [place] [address] * ABORH Recheck Status (05/10/2020 7:00 AM EST) ABORH Type Recheck Completed [facility] Blood specimen (specimen) 05/10/2020 7:00 AM EST 05/10/2020 7:13 AM EST Narrative Resulting Agency Comment Spec In Lab Emerald Carlson CRNA BLOOD BANK LAB ORDER IGNACIO Performing Organization Address [facility] de Phone Number [facility] [place] [address] * Antibody screen (05/10/2020 7:00 AM EST) Ab Screen Interp Negative [facility] Expires at 2359 on: 05/13/2020 [facility] Blood specimen (specimen) 05/10/2020 7:00 AM EST 05/10/2020 7:13 AM EST Narrative Resulting Agency Comment Spec In Lab Emerald Carlson CRNA BLOOD BANK LAB ORDER IGNACIO Performing Organization Address City/[facility]/ZIP Co de Phone Number [facility] [place] [place] [address] * ABO/Rh Typing (05/10/2020 7:00 AM EST) ABORH Type AB Pos [facility] Blood specimen (specimen) 05/10/2020 7:00 AM EST 05/10/2020 7:13 AM EST Narrative Resulting Agency Comment Spec In Lab Emerald Carlson CRNA BLOOD BANK LAB ORDER IGNACIO Performing Organization Address [facility] Co de Phone Number [facility] [place] [place] [address] * (ABNORMAL) POCT Glucose (05/10/2020 6:21 AM EST) Glucose, POC 201(H) 65 - 199 mg/dL [facility] Comment: Supplemental ranges: <140 mg/dL before meals <180 mg/dL all other times of the day Blood specimen (specimen) 05/10/2020 6:21 AM EST 05/10/2020 6:21 AM EST Joseph Ang MD POINT OF CARE TEST O RDERABLES Performing Organization Address [facility] Co de Phone Number [facility] [place] [address] documented in this encounter Visit Diagnoses Diagnosis [...] exceed 4000 mg acetaminophen per day., Routine 1644 (Given - Provider: Duyen Shoemaker RN) amLODIPine (Norvasc) tablet 2.5 mg 2.5 mg, Oral, DAILY, First dose on Thu05/11/20 at 0900, Until Discontinued, Routine 0937 (Given - Provid er: Duyen Shoemaker RN) atorvastatin (Lipitor) tablet 40 mg 40 mg, Oral, EVERY EVENING, First dose on Thu05/10/20 at 1700, Until Discontinued, Routine 1645 (Given - Provider: Duyen Shoemaker RN) calciTRIoL [...] on Thu05/11/20 at 0700, Until Discontinued, Routine 06 (Given - Provid er: Magdalena Hanna RN) methocarbamoL (Robaxin) tablet 500 mg 500 mg, Oral, EVERY 6 HOURS, 8 doses, First dose on Laura 05/10/20 at 1415, Last dose on Thu05/12/20 at 0815, Routine 164 (Given - Provider: Duyen Shoemaker RN)2055 (Given - Provider: Magdalena Hanna RN) 156 (Given - Provider: Magdalena Hanna RN)0733 (Given [...] Laura 05/10/20 at 1415, Until Discontinued, Routine 164 (Given - Provider: Duyen Shoemaker RN)2055 (Given - Provider: Magdalena Hanna RN) 0937 (Given - Provider: Duyen Shoemaker RN) sodium chloride 0.9 % (flush) flush 5 mL 5 mL, Intravenous, 2 TIMES DAILY, First dose on Laura 05/10/20 at 1415, Until Discontinued, Recovery (Recovery-Hospital Unit), Routine 1647 (Given - Provider: Duyen Shoemaker RN)2100 (Given [...] Until Thu05/11/20 at 1546, Intra-Operative (Intra-Procedure), Routine 08 (Given - Provider: Bobby Raygoza MD - [...] 0823, Until Thu05/11/20 at 1546, Intra-Operative (Intra-Procedure) 08 (Given - Provider: Bobby Raygoza MD) glucagon [...] at 1546, Pain, severe pain (7-10), Routine 2149 (See Alternative - Provider: Rubén Restrepo RN) 156 (See Alternative - Provider: Magdalena Hanna, JADEN) oxyCODONE (Roxicodone) tablet 5 mg(Linked Group 7) 5 mg, Oral, EVERY 4 HOURS PRN, Starting on Laura 05/10/20 at 1329, Until Thu05/11/20 at 1546, Pain, moderate pain (4-6), Routine 215 (Given - Provider: Rubén Restrepo RN) 156 (Given - Provider: Magdalena Hanna, RN) polyethylene [...] Laura 05/10/20 at 1530, Give per rectum (TN) if unable to take PO. Do not [...] Per G Tube, DAILY PRN, Starting on Thu05/10/20 at 1329, [...] Routine documented in this encounter Care Teams Manager Inside Relationship Specialty Start Date End Date Urbano Denis DO [address] [place] [address] PCP - General 09/03/12 03/17/22 Ruchi Valles RN Nurse Clinic Transplant Surgery 07/30/15 documented as of this encounter
--- OUTSIDE RECORDS SUMMARY | 2024-04-04 13:59 | XMS_ITS | Encounter Summary ---
Author Organization [facility] [place] [address] Care Team Providers Care Rn Cardiovascular Icu Name Role Phone AdeelUrbano toscano Primary Care Provider + [phone] Reason for Visit * Reason Onset Date Comments Medication Refill 02/07/2020 Encounter Details Date Type Department Care Team (Late st Contact Info) Description 02/07/2020 Refill Cardiology at [address] [phone] Byron Brown MD [facility] [place] [address] Medication Refill Social History Tobacco Use Types [...] PM EDT Office Visit Cardiology at [address] [phone] Jay Urban MD [facility] [place] [address] 04/15/2024 10:00 AM EDT Hospital Encounter Non[place] [phone] Arrived documented as of this encounter Goals [...] unspecified vessel or lesion type, unspecified whether [place] or transplanted heart documented in this encounter Care Teams Rn Cardiovascular Icu Relationship Specialty Start Date End Date Urbano Denis DO [address] [place] [address] [address] [facility] [address] [place] [address] PCP - General 09/03/12 03/17/22 Ruchi Valles RN Nurse Clinic Transplant Surgery 07/30/15 documented as of this encounter
--- OUTSIDE RECORDS SUMMARY | 2024-04-04 13:59 | XMS_ITS | Encounter Summary ---
Author Organization [facility] [place] [address] Care Team Providers Care Vitreo Retinal Surgeon Name Role Phone Urbano Denis DO Primary Care Provider Encounter Details Date Type Department Care Team (Latest Contact Info) Description 03/11/2019 9:40 AM EDT Laboratory Appointment Lab [address] [place] [address] H/O kidney transplant Social History [...] PM EDT Office Visit Cardiology at [address] [phone] Jay Urban MD [facility] [place] [address] 04/15/2024 10:00 AM EDT Hospital Encounter [place] [address] Arrived documented as of this [...] /HPF [facility] Urine specimen obtained by clean catch procedure (specimen) 03/11/2019 10:03 AM EDT 03/11/2019 10:08 AM EDT Narrative Resulting Agency Comment Spec In Lab Tal Eagle MD URINE ORDERABLES [facility] [place] [address] * (ABNORMAL) Urinalysis with reflex Culture (03/11/2019 10:03 AM EDT) Glucose, Urine Dipstick Negative Negative mg/dL [facility] Protein, Urine Dipstick 30(A) Negative mg/dL [facility] Bilirubin, [...] [facility] pH, Urn (dipstick) 6.0 5.0 - 8.0 [facility] Blood, Urine Dipstick Negative Negative mg/dL [facility] Ketone, Urine Dipstick Negative Negative mg/dL [facility] Nitrite, Urine Dipstick Negative Negative [facility] Leukocytes, Urine Dipstick Negative Negative [facility] Appearance, Urine Dipstick Clear Clear [facility] Specific [place] Urine Automated 1.011 1.002 - 1.030 [facility] Color, Urine Dipstick Yellow Yellow [facility] Reflex to Culture No [facility] Urine specimen obtained by clean catch procedure (specimen) 03/11/2019 10:03 AM EDT 03/11/2019 10:08 AM EDT Narrative Resulting Agency Comment Spec In Lab Tal Eagle MD URINE ORDERABLES Performing Organization Address City/[facility]/ZIP Co de Phone Number [facility] [place] [address] * (ABNORMAL) Protein/Creatinine Ratio, urine (03/11/2019 10:03 AM EDT) Creatinine, Urine 45 mg/dL [facility] Protein, Urine 31(H) 0 - 12 mg/dL [facility] Protein / Creatinine Ratio, Urine 0.7 ratio [facility] Urine specimen (specimen) 03/11/2019 10:03 AM EDT 03/11/2019 10:20 AM EDT Narrative Resulting Agency Comment Spec In Lab Tal Eagle MD URINE ORDERABLES Performing Organization Address City/[facility]/ZIP Co de Phone Number [facility] [place] [address] * Differential, Automated (03/11/2019 9:58 AM EDT) Neutrophil % 63.2 % [facility] Neutrophil Absolute 4.86 1.70 - 6.10 x10(3)/[facility] Lymph % 23.5 % [facility] Lymphocytes Abs 1.8 0.9 - 3.2 x10(3)/[facility] Monocyte % 7.4 % [facility] Monocyte Abs 0.6 0.3 - 0.9 x10(3)/[facility] Eos % 4.3 % [facility] Eosinophils Abs 0.3 0.0 - 0.4 x10(3)/[facility] Basophil % 1.2 % [facility] Baso Absolute 0.1 0.0 - 0.1 x10(3)/[facility] Immature Gran % 0.40 % [facility] Comment: Immature granulocytes(IG's)percentage and absolute count will include metamyelocytes, myelocytes, and promyelocytes. Blood smears from CBCs yielding IG's will be scanned manually for concordance. If this scan disagrees with the automated IG or if promyelocytes are noted, a manual differential will be performed. Immature Gran Absolute 0.03 0.00 - 0.04 x10(3)/[facility] Blood specimen (specimen) 03/11/2019 9:58 AM EDT 03/11/2019 10:23 AM EDT Narrative Resulting Agency Comment Spec In Lab Tal Eagle MD HEMATOLOGY ORDERA BLES Performing Organization Address City/State/[facility] Co de Phone Number [facility] [address] * Hemogram (03/11/2019 9:58 AM EDT) White Blood Cell 7.7 4.0 - 9.5 x10(3)/[facility] Red Blood Cell 4.78 4.58 - 5.54 x10(6)/[facility] Hemoglobin 14.7 13.7 - 16.5 gm/dL [facility] Hematocrit 42.8 40.5 - 48.5 % [facility] Mean Cell Volume 89.5 82.9 - 93.1 fL [facility] Mean Cell Hemoglobin 30.8 27.5 - 32.1 pg [facility] Mean Cell Hemoglobin Concentration 34.3 32.0 - 35.7 gm/dL [facility] Platelet 251 145 - 357 x10(3)/[facility] RDW Standard Deviation 45.0 36.0 - 45.0 fL [facility] RDW coefficient of variation 13.6 11.4 - 13.8 % [facility] Mean Platelet Volume 10.1 7.6 - 12.9 fL [facility] NRBC% auto 0.0 % [facility] NRBC Absolute 0.000 0.000 - 0.000 x10(3)/[facility] Blood specimen (specimen) 03/11/2019 9:58 AM EDT 03/11/2019 10:23 AM EDT Narrative Resulting Agency Comment Spec In Lab Tal Eagle MD HEMATOLOGY ORDERA BLES Performing Organization Address [facility] de Phone Number [facility] [address] * Reticulocyte Count (03/11/2019 9:58 AM EDT) Pathologist [facility] Reticulocyte % 2.2 0.7 - 2.6 % [facility] Retic Abs # 0.110 0.030 - 0.120 x10(6)/[facility] Immature Retic% 14.4 0.0 - 15.6 % [facility] Reticulated Hgb 35.8 31.3 - 40.2 pg [facility] Blood specimen (specimen) 03/11/2019 9:58 AM EDT 03/11/2019 10:23 AM EDT Narrative Resulting Agency Comment Spec In Lab Tal Eagle MD HEMATOLOGY ORDERA BLES Performing Organization Address [facility] Co de Phone Number [facility] [address] * (ABNORMAL) Comprehensive metabolic panel (non-fasting) (03/11/2019 9:58 AM EDT) Glucose 154 65 - 199 mg/dL [facility] Comment:Diabetes: >=200 mg/d L plus symptoms Blood Urea Nitrogen 19 10 - 20 mg/dL [facility] Creatinine 1.35 0.80 - 1.50 mg/dL [facility] Sodium 139 135 - 145 mmol/L [facility] Potassium 3.3(L) 3.5 - 5.0 mmol/L [facility] Comment: Please note: ??Patients with WBC >100,000 may have falsely elevated Potassium levels. ??For accurate Potassium quantification in these patients send serum separator tube (gold top) for subsequent determinations. ??Contact the Clinical Chemistry Laboratory if there are any questions. Chloride 100 98 - 107 mmol/L [facility] Carbon Dioxide 25 22 - 31 mmol/L [facility] Anion Gap 14 5 - 15 mmol/L [facility] Calcium 9.8 8.5 - 10.5 mg/dL [facility] Protein, Total 7.5 6.1 - 8.0 gm/dL [facility] Albumin 4.1 3.2 - 5.2 gm/dL [facility] Aspartate Aminotransferase 17 0 - 39 unit/L [facility] Alanine Aminotransferase 18 0 - 55 unit/L [facility] Alkaline Phosphatase 71 40 - 130 unit/L [facility] Bilirubin, Total 1.9(H) 0.2 - 1.3 mg/dL [facility] Est Glomerular Filtration Rate 53(L) >=60 mL/min/1. 73 m?? [facility] Comment: The eGFR was calculated using the CKD-EPI equation. As with all creatinine based estimates of kidney function, eGFR values calculated with the CKD-EPI equation are not accurate in patients with acute kidney failure, extremes of body mass or the acutely ill. http://[employer]/[facility] CITYnkf eGFR 61 >=60 mL/min/1. 73 m?? [facility] Comment: The eGFR was calculated using the CKD-EPI equation. As with all creatinine based estimates of kidney function, eGFR values calculated with the CKD-EPI equation are not accurate in patients with acute kidney failure, extremes of body mass or the acutely ill. http://[employer]/[facility] CITYnkf Blood specimen (specimen) 03/11/2019 9:58 AM EDT 03/11/2019 10:23 AM EDT Narrative Resulting Agency Comment Spec In Lab Tal Eagle MD CHEMISTRY ORDERAB LES Performing Organization Address City/[facility]/ZIP Co de Phone Number [facility] [place] [address] * Cholesterol, total (03/11/2019 9:58 AM EDT) Cholesterol, Total 83 mg/dL [facility] Comment: Lower Risk: <200 mg/dL Average Risk: 200-239 mg/dL Higher Risk: >tn=212 mg/dL Lipid Interpretation See Note [facility] Comment: Lipid management should be guided by a patient? s ASCVD risk, goals and preferences. ACC/AHA Guidelines recommend high intensity statin if clinical ASCVD or LDL greater than or equal to 190 mg/dL. http://[employer]/MNV-SUW-Jbqhohetr Adults aged 40-75 with LDL 70-189 mg/dL should have their 10 year ASCVD risk estimated with the ACC/AHA ASCVD risk superintendent pipelines http://tools.acc.org/OMNJR-Pjrb-Kltpdztff/ Statin should be discussed if risk greater [...] [facility]/ZIP Co de Phone Number [facility] [address] * (ABNORMAL) Magnesium (03/11/2019 9:58 AM EDT) Magnesium 0.57(L) 0.69 - 1.07 mmol/L [facility] Blood specimen (specimen) 03/11/2019 9:58 AM EDT 03/11/2019 10:23 AM EDT Narrative Resulting Agency Comment Spec In Lab Tal Eagle MD CHEMISTRY ORDERAB LES Performing Organization Address City/[facility]/ZIP Co de Phone Number [facility] [address] * Phosphorus (03/11/2019 9:58 AM EDT) Phosphorus 2.8 2.5 - 4.5 mg/dL [facility] Blood specimen (specimen) 03/11/2019 9:58 AM EDT 03/11/2019 10:23 AM EDT Narrative Resulting Agency Comment Spec In Lab Tal Eagle MD CHEMISTRY ORDERAB LES Performing Organization Address [facility] Co de Phone Number [facility] [address] * Uric acid (03/11/2019 9:58 AM EDT) Uric Acid 7.5 3.5 - 8.5 mg/dL [facility] Blood specimen (specimen) 03/11/2019 9:58 AM EDT 03/11/2019 10:23 AM EDT Narrative Resulting Agency Comment Spec In Lab Tal Eagle MD CHEMISTRY ORDERAB LES Performing Organization Address City/[facility] Co de Phone Number [facility] [place] [address] * Tacrolimus level (03/11/2019 9:58 AM EDT) Tacrolimus 8.3 ng/mL [facility] Comment: Trough therapeutic: ??5-15 ng/mL Performed by ultra-performance liquid chromatography tandem mass spectrometry (UPLCMS/MS). This test was developed and its performance characteristics determined by [facility]. It has not been cleared or [...] MD CHEMISTRY ORDERAB LES Performing Organization Address City/State/[facility] Co de Phone Number [facility] [place] [address] documented in this encounter Visit Diagnoses Diagnosis H/O kidney transplant Kidney replaced by transplant documented in this encounter Care Teams Vitreo Retinal Surgeon Relationship Specialty Start Date End Date Urbano Denis DO [address] [place] [address] PCP - General 09/03/12 03/17/22 Ruchi Valles RN Nurse Clinic Transplant Surgery 07/30/15 documented as of this encounter
--- OUTSIDE RECORDS SUMMARY | 2024-04-04 13:59 | XMS_ITS | Encounter Summary ---
[place] [address] Care Team Providers Care Cloth Presser Name Role Phone Urbano Denis DO Primary Care Provider Reason for Referral * Physical Therapy (Routine) - Specialty Diagnoses / Procedures Referred By Humberto flor Referred To Contact Diagnoses Left leg pain [place] [address] Referral ID Status Reason Start Date Expiration Date V isits Requested Visits Authorized [id number] Evaluate and Treat 05/30/2019 11/26/2019 12 12 Reason for Visit * Reason Comments Back Pain * Consultation (Routine) - Closed Specialty Diagnoses / Procedures Referred By Humberto flor Referred To Contact [facility] Diagnoses Spinal stenosis, site unspecified SPINE: Lumbar stenosis/MRI (L) 04/28/19 in e- Sonu Vanegas MD [address] [place] [address] [facility] [place] [address] Referral ID Status Reason Start Date Expiration Date Visits Re quested Visits Authorized [id number] Closed 05/10/2019 05/09/2020 1 1 Encounter Details Date Type Department Care Team (Late st Contact Info) Description 05/30/2019 9:00 AM EST Office Visit [facility] at [facility] [place] [address] Jay Chakraborty, PLANISHER [facility] [place] [address] Left leg pain Social History Tobacco Use [...] small bouts of incontinence. 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 Past medical history is extensive and well documented in his problem list including DM, IN this February and received a stent, and [...] that we would need to get his social media marketing specialist's approval to holdapixaban prior to injection and [...] but both his apixaban use status post IN with stent and he is chronic immunosuppression would need to be addressed with respect risks balanced against the potential benefits of surgery. documented in this encounter Plan of Treatment Upcoming Encounters Date Type Department Care Team (Late st Contact Info) Description 04/08/2024 1:40 PM EDT Office Visit Cardiology at [address] [phone] Jay Urban MD [facility] [place] [address] 04/15/2024 10:00 AM EDT Hospital Encounter Non-[place] [address] Arrived Scheduled Referrals Name Type Priority Associated [...] limb documented in this encounter Care Teams Cloth Presser Relationship Specialty Start Date End Date Urbano Denis DO [address] [place] [address] [address] [facility] [address] [place] [address] PCP - General 09/03/12 03/17/22 Ruchi Valles RN Nurse Clinic Transplant Surgery 07/30/15 documented as of this encounter
--- OUTSIDE RECORDS SUMMARY | 2024-04-04 13:59 | XMS_ITS | Encounter Summary ---
Author Organization [facility] [place] [address] Care Team Providers Care Correspondence Clerk Name Role Phone AdeelUrbano toscano Primary Care Provider + [phone] Reason for Visit * Reason Onset Date Comments Medication Refill 07/28/2019 Encounter Details Date Type Department Care Team (Late st Contact Info) Description 07/28/2019 Refill Cardiology at [address] [phone] Byron Brown MD [facility] [place] [address] Medication Refill Social History Tobacco Use Types [...] PM EDT Office Visit Cardiology at [address] [phone] Jay Urban MD [facility] [place] [address] 04/15/2024 10:00 AM EDT Hospital Encounter Non-[place] [address] Arrived documented as of this [...] fibrillation documented in this encounter Care Teams Correspondence Clerk Relationship Specialty Start Date End Date Urbano Denis DO [address] [place] [address] PCP - General 09/03/12 03/17/22 Ruchi Valles RN Nurse Clinic Transplant Surgery 07/30/15 documented as of this encounter
--- OUTSIDE RECORDS SUMMARY | 2024-04-04 13:59 | XMS_ITS | Encounter Summary ---
[place] [address] Care Team Providers Care Layout Man Name Role Phone Urbano Denis DO Primary Care Provider [phone] Encounter Details Date Type Department Care Team (Late st Contact Info) Description 07/08/2019 Telephone Cardiology at [address] [phone] Anel Proctor RN Social History Tobacco Use [...] for completion of the application form for [employer]ia [employer]- Patient Assistance form for 2019. [...] other concerns at this time. Anel L. Pollock RN, BSN Ambulatory Cardiology Department documented in this encounter Plan of Treatment Upcoming Encounters Date Type Department Care Team (Late st Contact Info) Description 04/08/2024 1:40 PM EDT Office Visit Cardiology at [address] [phone] Jay Urban MD [facility] [place] [place] [address] 04/15/2024 10:00 AM EDT Hospital Encounter Non-Invasive [place] [address] Arrived documented as of this encounter Goals Goal Patient Goal Type Associated Problems Recent Progress Patient-Stated? Author [facility] Medication Compliance and Understanding Patient Facing Action Plan On track( 017 10:41 AM EDT) No Selena Cisneros, [facility] Note: Patient Goal: Clear hepatitis C Timeframe to meet goal: within 12 weeks of therapy documented as of this encounter Visit Diagnoses Not on filedocumented in this encounter Care Teams Layout Man Relationship Specialty Start Date End Date Urbano Denis DO [address] [place] [address] PCP - General 09/03/12 03/17/22 Ruchi Valles RN Nurse Clinic Transplant Surgery 07/30/15 documented as of this encounter
--- OUTSIDE RECORDS SUMMARY | 2024-04-04 13:59 | XMS_ITS | Encounter Summary ---
Author Organization [facility] Address [facility] [place] [address] Care Team Providers Care Unit Supervisor Name Role Phone Urbano Denis DO Primary Care Provider + [phone] Reason for Visit * Physical Therapy (Routine) - Specialty Diagnoses / Procedures Referred By Humberto flor Referred To Contact Diagnoses Left leg pain Jay Chakraborty, IVETH [facility] [place] [address] Referral ID Status Reason Start Date Expiration Date V isits Requested Visits Authorized [id number] Evaluate and Treat 05/30/2019 11/26/2019 12 12 Encounter Details Date Type Department Care Team (Latest Contact Info) Description 09/12/2019 11:00 AM EDT Office Visit [place] [address] Tal Eagle MD [facility] [place] [address] H/O kidney transplant; Aftercare following organ transplant; [...] hepatitis) 08/25/2016 ??? Prophylactic immunotherapy 09/22/2016 ??? buttermaker current use of immunosuppressive drug 09/22/2016 ??? [...] EXTREMITY performed by Que Amaro MD at [facility] OR ??? PRO CYSTOURETHROSCOPY, URETER CATHETER Left 06/17/2018 CYSTO, RETROGRADE, URETEROPYELOGRAPHY (WRVU 2.37) performed [facility] Edinson Grider III[facility] ??? PRO REIMPLANT URETER, SINGLE URETER Left 05/20/2016 @URETERONEOCYSTOSTOMY ANASTOMOSIS OF SINGLE URETER TO BLADDER performed by Santosh Arredondo MD at [facility] OR ??? PRO REIMPLANT URETER, SINGLE URETER N/A 05/20/2016 @URETERONEOCYSTOSTOMY ANASTOMOSIS OF SINGLE URETER TO BLADDER performed by Que Amaro MD at [facility] OR ??? PRO TOTAL KNEE ARTHROPLASTY Right 11/25/2017 TOTAL KNEE ARTHROPLASTY (WRVU 20.72) performed by Breezy Dale MD at [facility] OR ??? PRO TRANSPLANT, PREP CADAVER RENAL GRAFT N/A 09/16/2015 @PREPARATION CADAVERIC RENAL ALLOGRAFT performed by Franko Larkin MD at [facility] OR ??? PRO TRANSPLANTATION OF KIDNEY N/A 09/16/2015 @KIDNEY TRANSPLANT, WITHOUT RECIPIENT NEPHRECTOMY performed by Franko Larkin MD at [facility] OR ??? US RENAL TRANSPLANT LEFT Left 01/31/2019 US Renal Transplant Left 01/31/2019 [facility] RAD ULTRASOUND ??? US RENAL TRANSPLANT LEFT Left 02/07/2019 US Renal Transplant Left 02/07/2019 [facility] RAD ULTRASOUND Current Outpatient Medications: ??? glipiZIDE [...] for diabetics, every 5 for non diabetics [place] kidney ultrasound looking for renal cell CA, [...] [place] 09/12/2019 [place] [facility] [place] [facility] [place] 102.1 kg (225 lb) Heart Rate [...] UA Latest Ref Range: Clear Clear Spec [place] UA Latest Ref Range: 1.002 - 1.030 [...] - Magnesium??gluconate??to 1000mg BID; increased today to [phone] TID - He can take liquid antacid [...] disease, AF/Afib Followed by Dr. Brown ? [id number] labs f/u in September 2020 ?? ? Discussion with the patient and/or family concerned the following: ?Diagnostic results or recommended studies ?Prognosis; ?Risks and benefits of management; ?Instructions for management; ?Compliance with treatment; ?Risk factor reduction; ?Patient and family education. ? Total time?25 of 30 min??in direct face to face public relations counselor. documented in this encounter Plan of Treatment Upcoming Encounters Date Type Department Care Team (Late st Contact Info) Description 04/08/2024 1:40 PM EDT Office Visit Cardiology at [address] [phone] Jay Urban MD [facility] [address] 04/15/2024 10:00 AM EDT Hospital Encounter Non-[place] [phone] Arrived documented as of this encounter Goals [...] immunotherapy documented in this encounter Care Teams Unit Supervisor Relationship Specialty Start Date End Date Urbano Denis DO [address] [place] [address] PCP - General 09/03/12 03/17/22 Ruchi Valles RN Nurse Clinic Transplant Surgery 07/30/15 documented as of this encounter
--- OUTSIDE RECORDS SUMMARY | 2024-04-04 13:59 | XMS_ITS | Encounter Summary ---
Author Organization [place] [address] Care Team Providers Care Horticultural Specialty Grower Name Role Phone AdeelUrbano toscano Primary Care Provider [phone] Reason for Visit * Reason Onset Date Comments Medication Refill 10/28/2019 Encounter Details Date Type Department Care Team (Late st Contact Info) Description 10/28/2019 Refill [place] [phone] Tal Eagle MD [facility] [place] [address] Social History Tobacco Use Types Packs/Day Years [...] PM EDT Office Visit Cardiology at [address] [phone] Jay Urban MD [facility] [place] [address] 04/15/2024 10:00 AM EDT Hospital Encounter [place] [phone] Arrived documented as of this encounter Goals [...] on filedocumented in this encounter Care Teams Horticultural Specialty Grower Relationship Specialty Start Date End Date Urbano Denis DO [address] [place] [address] PCP - General 09/03/12 03/17/22 Ruchi Valles RN Nurse Clinic Transplant Surgery 07/30/15 documented as of this encounter
--- OUTSIDE RECORDS SUMMARY | 2024-04-04 13:59 | XMS_ITS | Encounter Summary ---
[place] [address] Care Team Providers Care Broadcast Operations Manager Name Role Phone AdeelUrbano toscano Primary Care Provider Encounter Details Date Type Department Care Team (Late st Contact Info) Description 12/30/2019 Telephone Cardiology at [address] [phone] Sera Aguillon RN Social History [...] PM EDT Office Visit Cardiology at [address] [phone] Jay Urban MD [facility] [place] [address] 04/15/2024 10:00 AM EDT Hospital Encounter Non-Invasive Cardiology Lab [facility] [place] [address] Arrived documented as of this encounter Goals [...] on filedocumented in this encounter Care Teams Broadcast Operations Manager Relationship Specialty Start Date End Date Urbano Denis DO [address] [place] [address] PCP - General 09/03/12 03/17/22 Ruchi Valles RN Nurse Clinic Transplant Surgery 07/30/15 documented as of this encounter
--- OUTSIDE RECORDS SUMMARY | 2024-04-04 13:59 | XMS_ITS | Encounter Summary ---
Author Organization [facility] [place] [address] Care Team Providers Care Supervisor Water Treatment Plant Name Role Phone Urbano Denis DO Primary Care Provider Encounter Details Date Type Department Care Team (Latest Contact Info) Description 03/11/2019 10:40 AM EDT Office [place] [address] Tal Eagle MD [facility] [place] [address] H/O kidney transplant; Aftercare following organ transplant; [...] slowly recovering. He plans to go to [place] to visit his elderly mother. He has [...] for diabetics, every 5 for non diabetics [place] kidney ultrasound looking for renal cell CA, [...] 03/11/2019 in Solid Organ Transplant at [facility] Weight 97.2 kg (214 lb 3.2 oz) [...] UA Latest Ref Range: Clear Clear Spec Anderson UA Latest Ref Range: 1.002 - 1.030 [...] - Magnesium??gluconate??to 1000mg BID; increased today to [phone] TID -Advised not to take Baking soda [...] load undetectable after treatment in June ? [id number] labs f/u in September 2019 ?? ? Discussion with the patient and/or family concerned the following: ? Diagnostic results or recommended studies ? Prognosis; ? Risks and benefits of management; ? Instructions for management; ? Compliance with treatment; ? Risk factor reduction; ? Patient and family education. ? Total time 25 of 30 min in direct face to face counseling case manager. documented in this encounter Plan of Treatment Upcoming Encounters Date Type Department Care Team (Late st Contact Info) Description 04/08/2024 1:40 PM EDT Office Visit Cardiology at [address] [phone] Jay Urban MD [facility] [address] 04/15/2024 10:00 AM EDT Hospital Encounter Non[place] [address] Arrived documented as of this encounter Goals [...] 10:03 AM EDT) Creatinine, Urine 45 mg/dL [facility] Protein, Urine 31(H) 0 - 12 mg/dL [facility] Protein / Creatinine Ratio, Urine 0.7 ratio [facility] Urine specimen (specimen) 03/11/2019 10:03 AM EDT 03/11/2019 10:20 AM EDT Narrative Resulting Agency Comment Spec In Lab Tal Eagle MD URINE ORDERABLES [facility] [place] [address] * (ABNORMAL) Urinalysis with reflex Culture (03/11/2019 10:03 AM EDT) Glucose, Urine Dipstick Negative Negative mg/dL [facility] Protein, Urine Dipstick 30(A) Negative mg/dL [facility] Bilirubin, [...] Clear Clear [facility] Specific Anderson Urine Automated 1.011 1.002 - 1.030 [facility] Color, Urine Dipstick Yellow Yellow [facility] Reflex to Culture No [facility] Urine specimen obtained by clean catch procedure (specimen) 03/11/2019 10:03 AM EDT 03/11/2019 10:08 AM EDT Narrative Resulting Agency Comment Spec In Lab Tal Eagle MD URINE ORDERABLES Performing Organization Address [facility] Co de Phone Number [facility] [place] [address] * Tacrolimus level (03/11/2019 9:58 AM EDT) Tacrolimus 8.3 ng/mL [facility] Comment: Trough therapeutic: ??5-15 ng/mL Performed by ultra-performance liquid chromatography tandem mass spectrometry (UPLCMS/MS). This test was developed and its performance characteristics determined by [facility]. It has not been cleared [...] MD CHEMISTRY ORDERAB LES Performing Organization Address [facility]/ZIP Co de Phone Number [facility] [place] [address] * Uric acid (03/11/2019 9:58 AM EDT) Uric Acid 7.5 3.5 - 8.5 mg/dL [facility] Blood specimen (specimen) 03/11/2019 9:58 AM EDT 03/11/2019 10:23 AM EDT Narrative Resulting Agency Comment Spec In Lab Tal Eagle MD CHEMISTRY ORDERAB LES [facility] [place] [address] * Phosphorus (03/11/2019 9:58 AM EDT) Phosphorus 2.8 2.5 - 4.5 mg/dL [facility] Blood specimen (specimen) 03/11/2019 9:58 AM EDT 03/11/2019 10:23 AM EDT Narrative Resulting Agency Comment Spec In Lab Tal Eagle MD CHEMISTRY ORDERAB LES Performing Organization Address City/[facility]/ZIP Co de Phone Number [facility] [place] [address] * (ABNORMAL) Magnesium (03/11/2019 9:58 AM EDT) Magnesium 0.57(L) 0.69 - 1.07 mmol/L [facility] Blood specimen (specimen) 03/11/2019 9:58 AM EDT 03/11/2019 10:23 AM EDT Narrative Resulting Agency Comment Spec In Lab Tal Eagle MD CHEMISTRY ORDERAB LES Performing Organization Address City/[facility]/ZIP Co de Phone Number [facility] [place] [address] * Cholesterol, total (03/11/2019 9:58 AM EDT) Cholesterol, Total 83 mg/dL [facility] Comment: Lower Risk: <200 mg/dL Average Risk: 200-239 mg/dL Higher Risk: >km=010 mg/dL Lipid Interpretation See Note [facility] Comment: Lipid management should be guided by a patient? s ASCVD risk, goals and preferences. ACC/AHA Guidelines recommend high intensity statin if clinical ASCVD or LDL greater than or equal to 190 mg/dL. http://Vimodi.com/NME-XSK-Brqwsnxwo Adults aged 40-75 with LDL 70-189 mg/dL should have their 10 year ASCVD risk estimated with the ACC/AHA ASCVD risk fabric and accessories estimator http://tools.acc.org/TELMN-Snlv-Qruflluaj/ Statin should be discussed if risk greater [...] CHEMISTRY ORDERAB LES [facility] [place] [address] * (ABNORMAL) Comprehensive metabolic panel (non-fasting) (03/11/2019 9:58 AM EDT) Glucose 154 65 - 199 mg/dL [facility] Comment:Diabetes: >=200 mg/d L plus symptoms Blood Urea Nitrogen 19 10 - 20 mg/dL [facility] Creatinine 1.35 0.80 - 1.50 mg/dL [facility] Sodium 139 135 - 145 mmol/L [facility] Potassium 3.3(L) 3.5 - 5.0 mmol/L [facility] Comment: Please note: ??Patients with WBC >100,000 may have falsely elevated Potassium levels. ??For accurate Potassium quantification in these patients send serum separator tube (gold top) for subsequent determinations. ??Contact the Clinical Chemistry Laboratory if there are any questions. Chloride 100 98 - 107 mmol/L [facility] Carbon Dioxide 25 22 - 31 mmol/L [facility] Anion Gap 14 5 - 15 mmol/L [facility] Calcium 9.8 8.5 - 10.5 mg/dL [facility] Protein, Total 7.5 6.1 - 8.0 gm/dL [facility] Albumin 4.1 3.2 - 5.2 gm/dL [facility] Aspartate Aminotransferase 17 0 - 39 unit/L [facility] Alanine Aminotransferase 18 0 - 55 unit/L [facility] Alkaline Phosphatase 71 40 - 130 unit/L [facility] Bilirubin, Total 1.9(H) 0.2 - 1.3 mg/dL [facility] Est Glomerular Filtration Rate 53(L) >=60 mL/min/1. 73 m?? [facility] Comment: The eGFR was calculated using the CKD-EPI equation. As with all creatinine based estimates of kidney function, eGFR values calculated with the CKD-EPI equation are not accurate in patients with acute kidney failure, extremes of body mass or the acutely ill. http://idio/[facility] [place]nkf eGFR 61 >=60 mL/min/1. 73 m?? [facility] Comment: The eGFR was calculated using the CKD-EPI equation. As with all creatinine based estimates of kidney function, eGFR values calculated with the CKD-EPI equation are not accurate in patients with acute kidney failure, extremes of body mass or the acutely ill. http://idio/[facility] [place]nkf Blood specimen (specimen) 03/11/2019 9:58 AM EDT 03/11/2019 10:23 AM EDT Narrative Resulting Agency Comment Spec In Lab Tal Eagle MD CHEMISTRY ORDERAB LES [facility] [place] [address] * Reticulocyte Count (03/11/2019 9:58 AM EDT) Reticulocyte % 2.2 0.7 - 2.6 % [facility] Retic Abs # 0.110 0.030 - 0.120 x10(6)/mcL [facility] Immature Retic% 14.4 0.0 - 15.6 % [facility] Reticulated Hgb 35.8 31.3 - 40.2 pg [facility] Blood specimen (specimen) 03/11/2019 9:58 AM EDT 03/11/2019 10:23 AM EDT Narrative Resulting Agency Comment Spec In Lab Tal Eagle MD HEMATOLOGY ORDERA BLES Performing Organization Address [facility] Co de Phone Number [facility] [place] [address] documented in this encounter Visit Diagnoses Diagnosis H/O kidney transplant Kidney replaced by transplant Aftercare following organ transplant Hospital discharge follow-up Other follow-up examination Enterococcal bacteremia Bacteremia Prophylactic immunotherapy Need for prophylactic immunotherapy documented in this encounter Care Teams Supervisor Water Treatment Plant Relationship Specialty Start Date End Date Urbano Denis DO [address] [place] [address] PCP - General 09/03/12 03/17/22 Ruchi Valles RN Nurse Clinic Transplant Surgery 07/30/15 documented as of this encounter
--- OUTSIDE RECORDS SUMMARY | 2024-04-04 13:59 | XMS_ITS | Encounter Summary ---
Author Organization [facility]ly [facility] [place] [address] Care Team Providers Care Sugar Plantation Manager Name Role Phone Urbano Denis DO Primary Care Provider Encounter Details Date Type Department Care Team (Late st Contact Info) Description 02/22/2019 Notes Only Infectious Disease at [facility] [place] [address] Carmenza Shaw RN Social History Tobacco Use [...] line was removed by nursing staff at [facility]. Patient completed his IV ABX course at [facility] and was discharged. MARK Lynn, RN, ACM-RN OPAT Program documented in this encounter Plan of Treatment Upcoming Encounters Date Type Department Care Team (Late st Contact Info) Description 04/08/2024 1:40 PM EDT Office Visit Cardiology at [address] [phone] [facility] [place] [address] 04/15/2024 10:00 AM EDT Hospital Encounter Non-[place] [phone] Arrived documented as of this encounter Goals [...] on filedocumented in this encounter Care Teams Sugar Plantation Manager Relationship Specialty Start Date End Date Urbano Denis DO [address] [place] [address] PCP - General 09/03/12 03/17/22 Ruchi Valles RN Nurse Clinic Transplant Surgery 07/30/15 documented as of this encounter
--- OUTSIDE RECORDS SUMMARY | 2024-04-04 13:59 | XMS_ITS | Encounter Summary ---
Author Organization [facility]ly [facility] [place] [address] Care Team Providers Care Color Maker Name Role Phone Adeel Urbano KIRBY Primary Care Provider Reason for Visit * Reason Comments Medication Refill Encounter Details Date Type Department Care Team (Late st Contact Info) Description 07/28/2019 Refill [place] [phone] Tal Eagle MD [facility] [place] [address] Social History Tobacco Use Types Packs/Day Years [...] PM EDT Office Visit Cardiology at [address] [address] Jay Urban MD [facility] [place] [address] 04/15/2024 10:00 AM EDT Hospital Encounter Non-[place] [phone] Arrived documented as of this encounter Goals [...] on filedocumented in this encounter Care Teams Color Maker Relationship Specialty Start Date End Date Urbano Denis DO [address] [place] [address] [address] [facility] [place] [address] PCP - General 09/03/12 03/17/22 Ruchi Valles RN Nurse Clinic Transplant Surgery 07/30/15 documented as of this encounter
--- OUTSIDE RECORDS SUMMARY | 2024-04-04 13:59 | XMS_ITS | Encounter Summary ---
Author Organization [facility] [place] [address] Care Team Providers Care Corrugator Operator Name Role Phone Urbano Denis DO Primary Care Provider + [phone] Encounter Details Date Type Department Care Team (Late st Contact Info) Description 11/24/2019 9:20 AM EDT TH Visit (TeleHealth) Cardiology at [address] [address] Byron Brown MD [facility] [place] [address] Atrial fibrillation with RVR - had flutter initially, then fib; Coronary artery disease, angina presence unspecified, unspecified vessel or lesion type, unspecified whether pauma or transplanted heart Social History Tobacco Use [...] original note were not included. [facility] [place] [address] CARDIOLOGY/ VASCULAR OUTPATIENT NOTE Cody Bolden Urbano [...] significant cardiac history but was admitted to [facility] in January 2019 with newly diagnosed AFlutter [...] placed on plavix by a neurologist at [facility] (Shannan Redmond). There was some question about CVA/TIA at that time. He was later seen by a rocket scientist at [facility] (Petar) who obtained a ZIO that [...] 6 months or prn. Byron Brown MD, [facility] Cardiovascular Medicine [facility] Clinic scheduling: Trinidad Burgosson [phone] Clinic Team Nurse: Anel Proctor RN [phone] I provided care to the patient today via telephone / video conference. The total time associated with this visit was 25 minutes. documented in this encounter Plan of Treatment Upcoming Encounters Date Type Department Care Team (Late st Contact Info) Description 04/08/2024 1:40 PM EDT Office Visit Cardiology at [address] [address] Jay Urban MD [facility] [place] [address] 04/15/2024 10:00 AM EDT Hospital Encounter [place] [phone] Arrived documented as of this encounter Goals Goal Patient Goal Type Associated Problems Recent Progress Patient-Stated? Author [facility] Medication Compliance and Understanding Patient Facing Action [...] unspecified vessel or lesion type, unspecified whether pauma or transplanted heart documented in this encounter Care Teams Corrugator Operator Relationship Specialty Start Date End Date Urbano Denis DO [address] [place] [address] PCP - General 09/03/12 03/17/22 Ruchi Valles RN Nurse Clinic Transplant Surgery 07/30/15 documented as of this encounter
--- OUTSIDE RECORDS SUMMARY | 2024-04-04 13:59 | XMS_ITS | Encounter Summary ---
Author Organization [facility] [place] [address] Care Team Providers Care Appeals Board Referee Name Role Phone Adeel Urbano KIRBY Primary Care Provider [phone] Reason for Visit * Reason Comments Medication Refill Encounter Details Date Type Department Care Team (Late st Contact Info) Description 10/28/2019 Refill [place] [phone] Tal Eagle MD [facility] [place] [address] Social History Tobacco Use Types Packs/Day Years [...] PM EDT Office Visit Cardiology at [address] [phone] Jay Urban MD [facility] [place] [address] 04/15/2024 10:00 AM EDT Hospital Encounter Non-Invasive [place] [phone] Arrived documented as of this encounter Goals [...] on filedocumented in this encounter Care Teams Appeals Board Referee Relationship Specialty Start Date End Date Urbano Denis DO [address] [place] [address] [address] [facility] [address] [place] [address] PCP - General 09/03/12 03/17/22 Ruchi Valles RN Nurse Clinic Transplant Surgery 07/30/15 documented as of this encounter
--- OUTSIDE RECORDS SUMMARY | 2024-04-04 13:59 | XMS_ITS | Encounter Summary ---
Author Organization [facility] [place] [address] Care Team Providers Care Traffic Sign Supervisor Name Role Phone Adeel, Urbano KIRBY Primary Care Provider [phone] Reason for Visit * Reason Onset Date Comments Medication Refill 07/12/2019 Encounter Details Date Type Department Care Team (Late st Contact Info) Description 07/12/2019 Refill Solid [place] [phone] Viviana Coon, WILLIAM Social History Tobacco Use Types Packs/Day Years [...] PM EDT Office Visit Cardiology at [address] [phone] Jay Urban MD [facility] [place] [address] 04/15/2024 10:00 AM EDT Hospital Encounter Non-[place] [address] Arrived documented as of this encounter Goals [...] filedocumented in this encounter Care Teams Traffic Sign Supervisor Relationship Specialty Start Date End Date Urbano Denis DO [address] [place] [address] PCP - General 09/03/12 03/17/22 Ruchi Valles RN Nurse Clinic Transplant Surgery 07/30/15 documented as of this encounter
--- OUTSIDE RECORDS SUMMARY | 2024-04-04 13:59 | XMS_ITS | Encounter Summary ---
Author Organization [facility] [place] [address] Care Team Providers Care Work Counselor Name Role Phone AdeelUrbano boland Primary Care Provider [phone] Reason for Visit * Reason Onset Date Comments Medication Refill 08/30/2019 Encounter Details Date Type Department Care Team (Late st Contact Info) Description 08/30/2019 Refill Solid [place] [phone] Tal Eagle MD [facility] [address] Social History Tobacco Use Types Packs/Day Years [...] PM EDT Office Visit Cardiology at [address] [phone] Jay Urban MD [facility] [place] [address] 04/15/2024 10:00 AM EDT Hospital Encounter Non-Invasive [place] [phone] Arrived documented as of this encounter Goals [...] on filedocumented in this encounter Care Teams Work Counselor Relationship Specialty Start Date End Date Urbano Denis DO [address] [place] [address] PCP - General 09/03/12 03/17/22 Ruchi Valles RN Nurse Clinic Transplant Surgery 07/30/15 documented as of this encounter
--- OUTSIDE RECORDS SUMMARY | 2024-04-04 13:59 | XMS_ITS | Encounter Summary ---
Author Organization [facility] [place] [address] Care Team Providers Care Hydraulic Assembler Name Role Phone Urbano Denis DO Primary Care Provider Encounter Details Date Type Department Care Team (Late st Contact Info) Description 09/19/2019 Telephone Cardiology at [address] [phone] Matti-Giovanna Hawkins, RN Social History Tobacco Use [...] PM EDT Office Visit Cardiology at [address] [phone] Jay Urban MD [facility] [place] [address] 04/15/2024 10:00 AM EDT Hospital Encounter Non-[place] [address] Arrived documented as of this encounter Goals Goal Patient Goal Type Associated Problems Recent Progress Patient-Stated? Author [facility] Medication Compliance and Understanding Patient Facing Action Plan On track( 017 10:41 AM EDT) No Selena Cisneros, [facility] Note: Patient Goal: Clear hepatitis C Timeframe to meet goal: within 12 weeks of therapy documented as of this encounter Visit Diagnoses Not on filedocumented in this encounter Care Teams Hydraulic Assembler Relationship Specialty Start Date End Date Urbano Denis DO [address] [place] [address] PCP - General 09/03/12 03/17/22 Hai STANLEY,Ruchi Nurse Clinic Transplant Surgery 07/30/15 documented as of this encounter
--- OUTSIDE RECORDS SUMMARY | 2024-04-04 13:59 | XMS_ITS | Encounter Summary ---
Author Organization Formerly [facility] [place] [address] Care Team Providers Care Electric Relay Tester Name Role Phone AdeelUrbano boland Primary Care Provider Encounter Details Date Type Department Care Team (Late st Contact Info) Description 07/29/2019 Abstract [place] [phone] Tal Eagle MD [facility] [place] [address] Social History Tobacco Use Types Packs/Day Years [...] PM EDT Office Visit Cardiology at [address] [phone] Jay Urban MD [facility] [place] [address] 04/15/2024 10:00 AM EDT Hospital Encounter Non-[place] [address] Arrived documented as of this encounter Goals [...] on filedocumented in this encounter Care Teams Electric Relay Tester Relationship Specialty Start Date End Date Urbano Denis DO [address] [place] [address] [address] [place] [address] PCP - General 09/03/12 03/17/22 Ruchi Valles RN Nurse Clinic Transplant Surgery 07/30/15 documented as of this encounter
--- OUTSIDE RECORDS SUMMARY | 2024-04-04 13:59 | XMS_ITS | Encounter Summary ---
Author Organization Formerly [facility] [place] [address] Care Team Providers Care Metal Fabricator Welder Name Role Phone Urbano Denis DO Primary Care Provider Encounter Details Date Type Department Care Team (Late st Contact Info) Description 04/28/2019 Ancillary Procedure Radiology Library [place] [address] Urbano Denis DO [address] [place], [place] [address] Social History Tobacco Use Types Packs/Day Years [...] PM EDT Office Visit Cardiology at [address] [place] [phone] Jay Urban MD [facility] [place] [address] 04/15/2024 10:00 AM EDT Hospital Encounter [place] [address] Arrived documented as of this encounter Goals [...] MR Spine (04/28/2019 12:00 AM EDT) Narrative RAD - 05/09/2019 10:10 PM EST This exam is auto-finalizing. It's purpose is for storage only. Urbano Denis DO Daniel[facility] [employer] ORD ERABLES [place], [place] documented in this encounter Visit Diagnoses Not on filedocumented in this encounter Care Teams Metal Fabricator Welder Relationship Specialty Start Date End Date Urbano Denis DO [address] [place] [address] PCP - General 09/03/12 03/17/22 Ruchi Valles RN Nurse Clinic Transplant Surgery 07/30/15 documented as of this encounter
--- OUTSIDE RECORDS SUMMARY | 2024-04-04 13:59 | XMS_ITS | Encounter Summary ---
Author Organization Formerly [facility] [place] [address] Care Team Providers Care Manager Er Name Role Phone Adeel Urbano KIRBY Primary Care Provider Encounter Details Date Type Department Care Team (Late st Contact Info) Description 09/07/2019 Orders Only [place] [address] Dominique Jackson RN H/O kidney transplant Social [...] PM EDT Office Visit Cardiology at [address] [phone] [facility] [place] [address] 04/15/2024 10:00 AM EDT Hospital Encounter [place] [address] Arrived documented as of this [...] 10:23 AM EDT) Creatinine, Urine 107 mg/dL [facility] Protein, Urine 67(H) 0 - 12 mg/dL [facility] Protein / Creatinine Ratio, Urine 0.6 ratio [facility] Urine specimen (specimen) 09/12/2019 10:23 AM EDT 09/12/2019 10:32 AM EDT Narrative Resulting Agency Comment Spec In Lab Tal Eagle MD URINE ORDERABLES [facility] [place] [id number] * (ABNORMAL) Urinalysis with reflex Culture (09/12/2019 [...] [facility] Specific Commiskey Urine Automated 1.022 1.002 - 1.030 [facility] Color, Urine Dipstick Yellow Yellow [facility] Reflex to Culture No [facility] Urine specimen (specimen) 09/12/2019 10:23 AM EDT 09/12/2019 10:31 AM EDT Narrative Resulting Agency Comment Spec In Lab Tal Eagle MD URINE ORDERABLES Performing Organization Address [facility] Co de Phone Number [facility] [place] [address] * Creatinine, urine, random (09/12/2019 10:23 AM EDT) Creatinine, Urine 107 mg/dL [facility] Urine specimen (specimen) 09/12/2019 10:23 AM EDT 09/12/2019 10:32 AM EDT Narrative Resulting Agency Comment Spec In Lab Tal Eagle MD URINE ORDERABLES Performing Organization Address [facility] Co de Phone Number [facility] [place] [address] * (ABNORMAL) Magnesium (09/12/2019 10:10 AM EDT) Magnesium 0.68(L) 0.69 - 1.07 mmol/L [facility] Blood specimen (specimen) 09/12/2019 10:10 AM EDT 09/12/2019 10:22 AM EDT Narrative Resulting Agency Comment Spec In Lab Tal Eagle MD CHEMISTRY ORDERAB LES Performing Organization Address City/[facility] Co de Phone Number [facility] [place] [address] * Phosphorus (09/12/2019 10:10 AM EDT) Phosphorus 2.5 2.5 - 4.5 mg/dL [facility] Blood specimen (specimen) 09/12/2019 10:10 AM EDT 09/12/2019 10:22 AM EDT Narrative Resulting Agency Comment Spec In Lab Tal Eagle MD CHEMISTRY ORDERAB LES Performing Organization Address [facility] Co de Phone Number [facility] [place] [address] * PTH (09/12/2019 10:10 AM EDT) Parathyroid Hormone 51 15 - 65 pg/mL [facility] Blood specimen (specimen) 09/12/2019 10:10 AM EDT 09/12/2019 10:22 AM EDT Narrative Resulting Agency Comment Spec In Lab Tal Eagle MD CHEMISTRY ORDERAB LES Performing Organization Address [facility] de Phone Number [facility] [place] [address] * Reticulocyte Count (09/12/2019 10:10 AM EDT) Reticulocyte % 2.1 0.7 - 2.6 % [facility] Retic Abs # 0.100 0.030 - 0.120 x10(6)/mcL [facility] Immature Retic% 11.9 0.0 - 15.6 % [facility] Reticulated Hgb 35.8 31.3 - 40.2 pg [facility] Blood specimen (specimen) 09/12/2019 10:10 AM EDT 09/12/2019 10:22 AM EDT Narrative Resulting Agency Comment Spec In Lab Tal Eagle MD HEMATOLOGY ORDERA BLES Performing Organization Address [facility] Co de Phone Number [facility] [place] [address] * Tacrolimus level (09/12/2019 10:10 AM EDT) Tacrolimus 5.4 ng/mL [facility] Comment: Trough therapeutic: ??5-15 ng/mL Performed by ultra-performance liquid chromatography tandem mass spectrometry (UPLCMS/MS). This test was developed and its performance characteristics determined by [facility]. It has not been cleared or [...] ORDERAB LES Performing Organization Address [facility] Co de Phone Number [facility] [place] [address] * Uric acid (09/12/2019 10:10 AM EDT) Uric Acid 6.7 3.5 - 8.5 mg/dL [facility] Blood specimen (specimen) 09/12/2019 10:10 AM EDT 09/12/2019 10:22 AM EDT Narrative Resulting Agency Comment Spec In Lab Tal Eagle MD CHEMISTRY ORDERAB LES Performing Organization Address [facility] Co de Phone Number [facility] [place] [address] * Vitamin B12 (09/12/2019 10:10 AM EDT) Vitamin B12 416 232 - 1,245 pg/mL [facility] Blood specimen (specimen) 09/12/2019 10:10 AM EDT 09/12/2019 10:22 AM EDT Narrative Resulting Agency Comment Spec In Lab Tal Eagle MD CHEMISTRY ORDERAB LES Performing Organization Address City/[facility]/ZIP Co de Phone Number [facility] [place] [address] * 1,25-dihydroxycholecalciferol (09/12/2019 10:10 AM EDT) [facility] Vit D 1,25 Dihydroxy (NOVEMBER) 46 18 - 64 pg/mL [facility] Comment: ADDITIONAL INFORMATION This test was developed and its performance characteristics determined by [facility] in a manner consistent with CLIA requirements. This test has not been cleared or approved by the U.S. Food and Drug Administration. Test Performed by: [address] [address] Patient Access Specialist: Edinson Garcia M.D. Ph.D.; CLIA# [id number] Blood specimen (specimen) 09/12/2019 10:10 AM EDT 09/12/2019 4:17 PM EDT Narrative Resulting Agency Comment Spec In Lab Tal Eagle MD LAB SEND OUT ROCHELLE JENNINGS Performing Organization Address City/[facility]/ZIP Co de Phone Number [facility] [place] [address] * (ABNORMAL) Vitamin D, 25-Hydroxy (09/12/2019 10:10 AM EDT) [facility] Vitamin D Total 25 OH 17(L) 30 - 100 ng/mL [facility] Comment: As of 2019, 25-hydroxyvitamin D testing has moved from the [employer]SYS to the Kirsten June. No substantial change in measured values is expected. Blood specimen (specimen) 09/12/2019 10:10 AM EDT 09/12/2019 10:22 AM EDT Narrative Resulting Agency Comment Spec In Lab Tal Eagle MD CHEMISTRY ORDERAB LES Performing Organization Address City/[facility]/ZIP Co de Phone Number [facility] [place] [address] * Lipid Panel (Reflex Direct LDL) (09/12/2019 10:10 AM EDT) Cholesterol, Total 84 mg/dL [facility] Comment: Lower Risk: <200 mg/dL Average Risk: 200-239 mg/dL Higher Risk: >af=662 mg/dL Triglyceride 104 mg/dL [facility] Comment: Average Risk/Lower Risk: <150 mg/dL Borderline High Risk: 150-199 mg/dL High Risk: 200-499 mg/dL Very High Risk: >bv=648 mg/dL HDL Cholesterol 40 mg/dL [facility] Comment: Males: ?? Higher Risk: <40 mg/dL Females: ?? HIgher Risk: <50 mg/dL LDL Cholesterol 23 mg/dL [facility] Comment: Lowest Risk: <100 mg/dL Lower Risk: 100-129 mg/dL Borderline High Risk: 130-159 mg/dL High Risk: 160-189 mg/dL Very High Risk: >cw=761 mg/dL Cholesterol/HDL Ratio 2.1 ratio [facility] Lipid Interpretation See Note [facility] Comment: Lipid management should be guided by a patient? s ASCVD risk, goals and preferences. ACC/AHA Guidelines recommend high intensity statin if clinical ASCVD or LDL greater than or equal to 190 mg/dL. http://Zyga.S[employer]One/RMI-YUP-Fcevdzaoh Adults aged 40-75 with LDL 70-189 mg/dL should have their 10 year ASCVD risk estimated with the ACC/AHA ASCVD risk ceramist http://tools.acc.org/YMUGD-Qikd-Wirhljwkz/ Statin should be discussed if risk greater [...] ORDERAB LES Performing Organization Address [facility] Co de Phone Number [facility] [place] [address] * (ABNORMAL) Lipase (09/12/2019 10:10 AM EDT) Lipase 71(H) 0 - 60 unit/L [facility] Blood specimen (specimen) 09/12/2019 10:10 AM EDT 09/12/2019 10:22 AM EDT Narrative Resulting Agency Comment Spec In Lab Tal Eagle MD CHEMISTRY ORDERAB LES Performing Organization Address [facility] de Phone Number [facility] [place] [address] * Lavender Tube HOLD (09/12/2019 10:10 AM EDT) Lavender Hold Sample in lab. [facility] Blood specimen (specimen) 09/12/2019 10:10 AM EDT 09/12/2019 10:22 AM EDT Tal Eagle MD HEMATOLOGY ORDERA BLES Performing Organization Address [facility] de Phone Number [facility] [place] [address] * Iron and TIBC (09/12/2019 10:10 AM EDT) Iron 82 45 - 160 mcg/dL [facility] TIBC 269 250 - 450 mcg/dL [facility] Iron Saturation 30 20 - 50 % [facility] Blood specimen (specimen) 09/12/2019 10:10 AM EDT 09/12/2019 10:22 AM EDT Narrative Resulting Agency Comment Spec In Lab Tal Eagle MD CHEMISTRY ORDERAB LES Performing Organization Address City/[facility]/ZIP Co de Phone Number [facility] [place] [address] * (ABNORMAL) Hemoglobin A1c (09/12/2019 10:10 AM EDT) Hemoglobin A1c 7.1(H) 4.3 - 5.6 % [facility] Comment: Reference Range: 4.3 [...] S67-74 Estimated Average Glucose See note mg/dL [facility] Comment: Estimated Average Glucose [...] into estimated average glucose values. ??Diabetes Care 2008:31(8):6633-6033. Blood specimen (specimen) 09/12/2019 10:10 AM EDT 09/12/2019 10:23 AM EDT Narrative Resulting Agency Comment Spec In Lab Tal Eagle MD CHEMISTRY ORDERAB LES Performing Organization Address [facility] Co de Phone Number [facility] [place] [address] * Gold Tube HOLD (09/12/2019 10:10 AM EDT) Gold Hold Sample in lab. [facility] Blood specimen (specimen) 09/12/2019 10:10 AM EDT 09/12/2019 10:22 AM EDT Tal Eagle MD CHEMISTRY ORDERAB LES Performing Organization Address [facility] Co de Phone Number [facility] [place] [address] * Folate, serum (09/12/2019 10:10 AM EDT) Folate 9.3 4.8 - 24.2 ng/mL [facility] Blood specimen (specimen) 09/12/2019 10:10 AM EDT 09/12/2019 10:22 AM EDT Narrative Resulting Agency Comment Spec In Lab Tal Eagle MD CHEMISTRY ORDERAB LES Performing Organization Address [facility] Co de Phone Number [facility] [place] [address] * Ferritin (09/12/2019 10:10 AM EDT) Ferritin 246 30 - 400 ng/mL [facility] Comment: Pediatric reference ranges not verified at [facility], interpret with caution. Reference ranges for females greater than 50 years of age approach values for men, i.e., 30-400 ng/mL. Blood specimen (specimen) 09/12/2019 10:10 AM EDT 09/12/2019 10:22 AM EDT Narrative Resulting Agency Comment Spec In Lab Tal Eagle MD CHEMISTRY ORDERAB LES [facility] [place] [address] * (ABNORMAL) CMP w/fasting Glucose (09/12/2019 10:10 AM EDT) Glucose Fasting 153(H) 65 - 99 mg/dL [facility] Comment: ?Fasting* Glucose Interpretive [...] of Diabetes Mellitus, Position Statement from the [place] [employer]. ??Diabetes Care, Volume 33, Supplement 1, Jul 2009 Blood Urea Nitrogen 16 10 - 20 mg/dL [facility] Creatinine 1.43 0.80 - 1.50 mg/dL [facility] Sodium 142 135 - 145 mmol/L [facility] Potassium 3.7 3.5 - 5.0 mmol/L [facility] Comment: Please note: ??Patients with WBC >100,000 may have falsely elevated Potassium levels. ??For accurate Potassium quantification in these patients send serum separator tube (gold top) for subsequent determinations. ??Contact the Clinical Chemistry Laboratory if there are any questions. Chloride 103 98 - 107 mmol/L [facility] Carbon Dioxide 28 22 - 31 mmol/L [facility] Anion Gap 11 5 - 15 mmol/L [facility] Calcium 9.7 8.5 - 10.5 mg/dL [facility] Protein, Total 7.1 6.1 - 8.0 gm/dL [facility] Albumin 4.1 3.2 - 5.2 gm/dL [facility] Aspartate Aminotransferase 18 0 - 39 unit/L [facility] Alanine Aminotransferase 16 0 - 55 unit/L [facility] Alkaline Phosphatase 69 40 - 130 unit/L [facility] Bilirubin, Total 2.5(H) 0.2 - 1.3 mg/dL [facility] Est Glomerular Filtration Rate 49(L) >=60 mL/min/1. 73 m?? [facility] Comment: The eGFR was calculated using the CKD-EPI equation. As with all creatinine based estimates of kidney function, eGFR values calculated with the CKD-EPI equation are not accurate in patients with acute kidney failure, extremes of body mass or the acutely ill. http://[employer]./[facility] LIND[facility]Ynkf eGFR 57(L) >=60 mL/min/1. 73 m?? [facility] Comment: The eGFR was calculated using the CKD-EPI equation. As with all creatinine based estimates of kidney function, eGFR values calculated with the CKD-EPI equation are not accurate in patients with acute kidney failure, extremes of body mass or the acutely ill. http://[employer] Blood specimen (specimen) 09/12/2019 10:10 AM EDT 09/12/2019 10:22 AM EDT Narrative Resulting Agency Comment Spec In Lab Tal Eagle MD CHEMISTRY ORDERAB LES Performing Organization Address City/State/[facility] Co de Phone Number [facility] [place] [address] * Amylase (09/12/2019 10:10 AM EDT) Amylase 46 28 - 100 unit/L [facility] Blood specimen (specimen) 09/12/2019 10:10 AM EDT 09/12/2019 10:22 AM EDT Narrative Resulting Agency Comment Spec In Lab Tal Eagle MD CHEMISTRY ORDERAB LES [facility] [place] [address] documented in this encounter Visit Diagnoses Diagnosis H/O kidney transplant Kidney replaced by transplant documented in this encounter Care Teams Manager Er Relationship Specialty Start Date End Date Urbano Denis DO [address] [place] [address] PCP - General 09/03/12 03/17/22 Ruchi Valles RN Nurse Clinic Transplant Surgery 07/30/15 documented as of this encounter
--- OUTSIDE RECORDS SUMMARY | 2024-04-04 13:59 | XMS_ITS | Encounter Summary ---
Author Organization [facility] [place] [address] Care Team Providers Care Wind Power Project Manager Name Role Phone AdeelUrbano toscano Primary Care Provider Encounter Details Date Type Department Care Team (Late st Contact Info) Description 04/06/2019 Orders Only Cardiology at [address] [phone] Byron Brown MD [facility] [place] [address] Social History Tobacco Use Types Packs/Day Years [...] PM EDT Office Visit Cardiology at [address] [phone] Jay Urban MD [facility] [place] [address] 04/15/2024 10:00 AM EDT Hospital Encounter Non-Invasive [place] [address] Arrived documented as of this encounter Goals [...] on filedocumented in this encounter Care Teams Wind Power Project Manager Relationship Specialty Start Date End Date Urbano Denis DO [address] [place] [address] [address] [place] [address] PCP - General 09/03/12 03/17/22 Ruchi Valles RN Nurse Clinic Transplant Surgery 07/30/15 documented as of this encounter
--- OUTSIDE RECORDS SUMMARY | 2024-04-04 13:59 | XMS_ITS | Encounter Summary ---
Author Organization [facility] [place] [address] Care Team Providers Care Loss Prevention Consultant Name Role Phone AdeelUrbano toscano Primary Care Provider [phone] Reason for Visit * Reason Onset Date Comments Medication Refill 04/06/2019 Encounter Details Date Type Department Care Team (Late st Contact Info) Description 04/06/2019 Refill Cardiology at [address] [phone] Byron Brown MD [facility] [place] [address] Medication Refill Social History Tobacco Use Types [...] PM EDT Office Visit Cardiology at [address] [phone] Jay Urban MD [facility] [place] [address] 04/15/2024 10:00 AM EDT Hospital Encounter Non-[place] [address] Arrived documented as of this [...] in this encounter Care Teams Loss Prevention Consultant Relationship Specialty Start Date End Date Urbano Denis DO [facility] [address] [facility] [address] [place] [address] PCP - General 09/03/12 03/17/22 Ruchi Valles RN Nurse Clinic Transplant Surgery 07/30/15 documented as of this encounter
--- OUTSIDE RECORDS SUMMARY | 2024-04-04 13:59 | XMS_ITS | Encounter Summary ---
[place] [address] Care Team Providers Care Swinging Cut Off Saw Operator Name Role Phone Urbano Denis DO Primary Care Provider Encounter Details Date Type Department Care Team (Late st Contact Info) Description 04/20/2019 Telephone Cardiology at [address] [phone] Anel Proctor RN Social History Tobacco Use [...] Rx for the Abigailralphis to submit to [employer] with the application. Included contact information sheet for the Cardiology Department. Mrs. Bolden understands that she more than likely will need to apply again in July for [facility] . She has no other concerns [...] sign application for Med Assistance form from [employer] for Eliquis. Patient apparently qualifies and need [...] PM EDT Office Visit Cardiology at [address] [phone] Jay Urban MD [facility] [place] [address] 04/15/2024 10:00 AM EDT Hospital Encounter Non[place] [phone] Arrived documented as of this encounter Goals [...] on filedocumented in this encounter Care Teams Swinging Cut Off Saw Operator Relationship Specialty Start Date End Date Urbano Denis DO [address] [place] [address] PCP - General 09/03/12 03/17/22 Ruchi Valles RN Nurse Clinic Transplant Surgery 07/30/15 documented as of this encounter
--- OUTSIDE RECORDS SUMMARY | 2024-04-04 13:59 | XMS_ITS | Encounter Summary ---
Author Organization [facility] [place] [address] Care Team Providers Care International Specialist Name Role Phone Adeel Urbano KIRBY Primary Care Provider [phone] Reason for Visit * Reason Comments Hypertension Atrial Fibrillation Ekg Encounter Details Date Type Department Care Team (Late st Contact Info) Description 03/31/2019 2:00 PM EDT Office Visit Cardiology at [address] [phone] Shaq Brown MD [facility] [place] [address] Atrial fibrillation with RVR - had flutter [...] documented in this encounter Progress Notes * Shaq Brown MD - 03/31/2019 2:00 PM EDT Images from the original note were not included. [place] [address] CARDIOLOGY/ VASCULAR OUTPATIENT NOTE Cody Denis DO SUBJECTIVE: S/p kidney transplant in 2015. Last seen in cardiology in 12/2015. The patient did not have a significant cardiac history but was admitted to [facility] in January 2019 with newly diagnosed AFlutter [...] of fluid loss. ??Denies any??fevers or chills. ??[place] bloated in abdomen since yesterday.?No pain with [...] was also started on apixaban due to [id number] score of 6, with no complications of [...] night,and patient reported a history of ARIELLA. [place] Sleepiness Scale was notable for increased sleepiness; [...] his catheterization, Mr. Bolden was given fluids with bicarb for renal [...] PM EDT Office Visit Cardiology at [address] [phone] Jay Urban MD [facility] [place] [address] 04/15/2024 10:00 AM EDT Hospital Encounter Non[place] [phone] Arrived documented as of this encounter Goals [...] (Bezet) 444 ms MUSE SYSTEM Calculated R Hope -61 degrees MUSE SYSTEM Calculated T Hope 39 degrees MUSE SYSTEM INTERPRETATION Sinus rhythm with marked sinus arrhythmia Left anterior fascicular block Minimal voltage criteria for LVH, may be normal variant Abnormal ECG When compared with ECG of 08-FEB-2019 15:18, Premature supraventricular complexes are no longer Present Nonspecific T wave abnormality no longer evident in Anterior leads Confirmed by MD MARISOL, SHAQ ([id number]) on 03/31/2019 5:50:25 PM MUSE SYSTEM 03/31/2019 1:58 PM EDT 03/31/2019 5:50 PM EDT Shaq Brown MD ECG ORDERABLES MUSE SYSTEM documented in this encounter Visit Diagnoses Diagnosis Atrial fibrillation with RVR - had flutter initially, then fib- Primary Atrial fibrillation Hypertension secondary to other renal disorders documented in this encounter Care Teams International Specialist Relationship Specialty Start Date End Date Urbano Denis DO [address] [place] [address] PCP - General 09/03/12 03/17/22 Ruchi Valles RN Nurse Clinic Transplant Surgery 07/30/15 documented as of this encounter
--- OUTSIDE RECORDS SUMMARY | 2024-04-04 13:59 | XMS_ITS | Encounter Summary ---
Author Organization Formerly [facility] [place] [address] Care Team Providers Care Biomedical Service Engineer Name Role Phone Urbano Denis DO Primary Care Provider + [phone] Reason for Visit * Physical Therapy (Routine) - Specialty Diagnoses / Procedures Referred By Humberto flor Referred To Contact Diagnoses Left leg pain Jay Chakraborty, AIRCRAFT ELECTRICIAN [facility] [place] [address] Referral ID Status Reason Start Date Expiration Date V isits Requested Visits Authorized [id number] Evaluate and Treat 05/30/2019 11/26/2019 12 12 Encounter Details Date Type Department Care Team (Latest Contact Info) Description 09/12/2019 10:00 AM EDT Laboratory Appointment Lab [address] [place] [id number] H/O kidney transplant; BK viremia Social History [...] PM EDT Office Visit Cardiology at [address] [place] [phone] Jay Urban MD [facility] [place] [address] 04/15/2024 10:00 AM EDT Hospital Encounter Non-Invasive Cardiology Lab [facility] [place] [address] Arrived documented as of this encounter Goals Goal Patient Goal Type Associated Problems Recent Progress Patient-Stated? Author [facility] Medication Compliance and Understanding Patient Facing Action [...] RBC, Urine 4(H) 0 - 3 /HPF [facility] WBC, Urine 0 0 - 3 /HPF [facility] Squamous Epithelial Cells Raw Data, Urine 1 <=4 /HPF [facility] Urine specimen (specimen) 09/12/2019 10:23 AM EDT 09/12/2019 10:31 AM EDT Narrative Resulting Agency Comment Spec In Lab Tal Eagle MD URINE ORDERABLES Performing Organization Address City/State/[facility] Co de Phone Number [facility] [place] [address] * BKV Quant Urine (09/12/2019 10:23 AM EDT) BKV Urine Result Not Detected [facility] BKV Urine Interp BK Virus Urine Result Interpretation Result: BK Virus not detected Specimen type: urine Assay Range: 2.80-7.80 log copies/mL (6.28x10^2 - 6.28x10^7 copies/mL) Methods: Quantitative real-time polymerase chain reaction (PCR) of viral DNA isolated from plasma was performed using [employer] BKV analyte-specific reagents and the [employer] Online System that automates both nucleic acid isolation [...] its performance characteristics determined by the Clinical [employer] ([facility]) Laboratory at [facility]. It has not been cleared or approved by the FDA. The laboratory is regulated under CLIA as qualified to perform high-complexity testing. This test is used for clinical purposes. It should not be regarded as investigational or for research. [facility] Comment: [VERIFIED DATE]09.17.19 Verified By:Tal Cleaning (Electronic Signature) Urine specimen (specimen) 09/12/2019 10:23 AM EDT 09/12/2019 11:59 AM EDT Narrative Resulting Agency Comment Spec In Lab Tal Eagle MD MOLECULAR ORDERAB LES Performing Organization Address City/[facility]/ZIP Co de Phone Number [facility] [place] [address] * (ABNORMAL) Protein/Creatinine Ratio, urine (09/12/2019 10:23 AM EDT) Creatinine, Urine 107 mg/dL [facility] Protein, Urine 67(H) 0 - 12 mg/dL [facility] Protein / Creatinine Ratio, Urine 0.6 ratio [facility] Urine specimen (specimen) 09/12/2019 10:23 AM EDT 09/12/2019 10:32 AM EDT Narrative Resulting Agency Comment Spec In Lab Tal Eagle MD URINE ORDERABLES Performing Organization Address City/[facility]/ZIP Co de Phone Number [facility] [place] [address] * (ABNORMAL) Urinalysis with reflex Culture (09/12/2019 [...] [facility] pH, Urn (dipstick) 6.5 5.0 - 8.0 [facility] Blood, Urine Dipstick Negative Negative mg/dL [facility] Ketone, Urine Dipstick Negative Negative mg/dL [facility] Nitrite, Urine Dipstick Negative Negative [facility] Leukocytes, Urine Dipstick Negative Negative mcL [facility] Appearance, Urine Dipstick Clear Clear [facility] Specific [place] Urine Automated 1.022 1.002 - 1.030 [facility] Color, Urine Dipstick Yellow Yellow [facility] Reflex to Culture No [facility] Urine specimen (specimen) 09/12/2019 10:23 AM EDT 09/12/2019 10:31 AM EDT Narrative Resulting Agency Comment Spec In Lab Tal Eagle MD URINE ORDERABLES Performing Organization Address [facility] Co de Phone Number [facility] [place] [address] * Creatinine, urine, random (09/12/2019 10:23 AM EDT) Creatinine, Urine 107 mg/dL [facility] Urine specimen (specimen) 09/12/2019 10:23 AM EDT 09/12/2019 10:32 AM EDT Narrative Resulting Agency Comment Spec In Lab Tal Eagle MD URINE ORDERABLES Performing Organization Address [facility] Co de Phone Number [facility] [place] [address] * [facility] Sendout (09/12/2019 10:10 AM EDT) [facility] Sendout See Note [facility] Comment: The ordered test is: BKV Antibody Titer Test performed by: [facility], [address] [place] [address] See Scanned Report. Blood specimen (specimen) Venous Draw / Unknown 09/12/2019 10:10 AM EDT 09/12/2019 1:39 PM EDT Tal Eagle MD LAB SEND OUT ROCHELLE JENNINGS [facility] [place] [address] * Differential, Automated (09/12/2019 10:10 AM EDT) [facility] Neutrophil % 68.3 % [facility] Neutrophil Absolute 5.15 1.70 - 6.10 x10(3)/[facility] Lymph % 19.6 % [facility] Lymphocytes Abs 1.5 0.9 - 3.2 x10(3)/[facility] Monocyte % 7.6 % [facility] Monocyte Abs 0.6 0.3 - 0.9 x10(3)/[facility] Eos % 3.3 % [facility] Eosinophils Abs 0.2 0.0 - 0.4 x10(3)/[facility] Basophil % 0.8 % [facility] Baso Absolute 0.1 0.0 - 0.1 x10(3)/[facility] Immature Gran % 0.40 % [facility] Comment: Immature granulocytes(IG's)percentage and absolute count will include metamyelocytes, myelocytes, and promyelocytes. Blood smears from CBCs yielding IG's will be scanned manually for concordance. If this scan disagrees with the automated IG or if promyelocytes are noted, a manual differential will be performed. Immature Gran Absolute 0.03 0.00 - 0.04 x10(3)/[facility] Blood specimen (specimen) 09/12/2019 10:10 AM EDT 09/12/2019 10:22 AM EDT Narrative Resulting Agency Comment Spec In Lab Tal Eagle MD HEMATOLOGY ORDERA BLES [facility] [place] [address] * Hemogram (09/12/2019 10:10 AM EDT) White Blood Cell 7.5 4.0 - 9.5 x10(3)/[facility] Red Blood Cell 4.99 4.58 - 5.54 x10(6)/[facility] Hemoglobin 15.3 13.7 - 16.5 gm/dL [facility] Hematocrit 45.3 40.5 - 48.5 % [facility] Mean Cell Volume 90.8 82.9 - 93.1 [facility] Mean Cell Hemoglobin 30.7 27.5 - 32.1 pg [facility] Mean Cell Hemoglobin Concentration 33.8 32.0 - 35.7 gm/dL [facility] Platelet 261 145 - 357 x10(3)/[facility] RDW Standard Deviation 43.4 36.0 - 45.0 [facility] RDW coefficient of variation 13.2 11.4 - 13.8 % [facility] Mean Platelet Volume 9.7 7.6 - 12.9 [facility] NRBC% auto 0.0 % [facility] NRBC Absolute 0.000 0.000 - 0.000 x10(3)/[facility] Blood specimen (specimen) 09/12/2019 10:10 AM EDT 09/12/2019 10:22 AM EDT Narrative Resulting Agency Comment Spec In Lab Tal Eagle MD HEMATOLOGY ORDERA BLES Performing Organization Address [facility] Co de Phone Number [facility] [place] [address] * Miscellaneous Lab request (09/12/2019 10:10 AM EDT) Label Request received in lab. [facility] Blood specimen (specimen) 09/12/2019 10:10 AM EDT 09/12/2019 10:23 AM EDT Narrative Resulting Agency Comment Spec In Lab Tal Eagle MD LAB SEND OUT ORDE RABLES Performing Organization Address [facility] Co de Phone Number [facility] [place] [address] * (ABNORMAL) Magnesium (09/12/2019 10:10 AM EDT) Magnesium 0.68(L) 0.69 - 1.07 mmol/L [facility] Blood specimen (specimen) 09/12/2019 10:10 AM EDT 09/12/2019 10:22 AM EDT Narrative Resulting Agency Comment Spec In Lab Tal Eagle MD CHEMISTRY ORDERAB LES Performing Organization Address [facility] Co de Phone Number [facility] [place] [address] * Phosphorus (09/12/2019 10:10 AM EDT) Phosphorus 2.5 2.5 - 4.5 mg/dL [facility] Blood specimen (specimen) 09/12/2019 10:10 AM EDT 09/12/2019 10:22 AM EDT Narrative Resulting Agency Comment Spec In Lab Tal Eagle MD CHEMISTRY ORDERAB LES Performing Organization Address City/[facility]/ZIP Co de Phone Number [facility] [place] [address] * PTH (09/12/2019 10:10 AM EDT) Parathyroid Hormone 51 15 - 65 pg/mL [facility] Blood specimen (specimen) 09/12/2019 10:10 AM EDT 09/12/2019 10:22 AM EDT Narrative Resulting Agency Comment Spec In Lab Tal Eagle MD CHEMISTRY ORDERAB LES Performing Organization Address [facility] Co de Phone Number [facility] [place] [address] * Reticulocyte Count (09/12/2019 10:10 AM EDT) Reticulocyte % 2.1 0.7 - 2.6 % [facility] Retic Abs # 0.100 0.030 - 0.120 x10(6)/mcL [facility] Immature Retic% 11.9 0.0 - 15.6 % [facility] Reticulated Hgb 35.8 31.3 - 40.2 pg [facility] Blood specimen (specimen) 09/12/2019 10:10 AM EDT 09/12/2019 10:22 AM EDT Narrative Resulting Agency Comment Spec In Lab Tal Eagle MD HEMATOLOGY ORDERA BLES Performing Organization Address [facility] de Phone Number [facility] [place] [address] * Tacrolimus level (09/12/2019 10:10 AM EDT) Tacrolimus 5.4 ng/mL [facility] Comment: Trough therapeutic: ??5-15 ng/mL Performed by ultra-performance liquid chromatography tandem mass spectrometry (UPLCMS/MS). This test was developed and its performance characteristics determined by [facility]. It has not been cleared or [...] MD CHEMISTRY ORDERAB LES Performing Organization Address [facility] Co de Phone Number [facility] [place] [address] * Uric acid (09/12/2019 10:10 AM EDT) Uric Acid 6.7 3.5 - 8.5 mg/dL [facility] Blood specimen (specimen) 09/12/2019 10:10 AM EDT 09/12/2019 10:22 AM EDT Narrative Resulting Agency Comment Spec In Lab Tal Eagle MD CHEMISTRY ORDERAB LES Performing Organization Address [facility] Co de Phone Number [facility] [place] [address] * Vitamin B12 (09/12/2019 10:10 AM EDT) Vitamin B12 416 232 - 1,245 pg/mL [facility] Blood specimen (specimen) 09/12/2019 10:10 AM EDT 09/12/2019 10:22 AM EDT Narrative Resulting Agency Comment Spec In Lab Tal Eagle MD CHEMISTRY ORDERAB LES Performing Organization Address [facility] Co de Phone Number [facility] [place] [address] * 1,25-dihydroxycholecalciferol (09/12/2019 10:10 AM EDT) Vit D 1,25 Dihydroxy (NOVEMBER) 46 18 - 64 pg/mL [facility] Comment: ADDITIONAL INFORMATION This test was developed and its performance characteristics determined by [facility] in a manner consistent with CLIA requirements. This test has not been cleared or approved by the U.S. Food and Drug Administration. Test Performed by: [facility] [address] [place] [address] Embalmer Apprentice: Edinson Garcia M.D. Ph.D.; CLIA# [id number] Blood specimen (specimen) 09/12/2019 10:10 AM EDT 09/12/2019 4:17 PM EDT Narrative Resulting Agency Comment Spec In Lab Tal Eagle MD LAB SEND OUT ORDE DICK Performing Organization Address [facility] Co de Phone Number [facility] [place] [address] * (ABNORMAL) Vitamin D, 25-Hydroxy (09/12/2019 10:10 AM EDT) Pathologist [facility] Vitamin D Total 25 OH 17(L) 30 - 100 ng/mL [facility] Comment: As of 2019, 25-hydroxyvitamin D testing has moved from the [employer] to the [employer] [employer]. No substantial change in measured values is expected. Blood specimen (specimen) 09/12/2019 10:10 AM EDT 09/12/2019 10:22 AM EDT Narrative Resulting Agency Comment Spec In Lab Tal Eagle MD CHEMISTRY ORDERAB LES Performing Organization Address [facility] Co de Phone Number [facility] [place] [address] * Lipid Panel (Reflex Direct LDL) (09/12/2019 10:10 AM EDT) Pathologist [facility] Cholesterol, Total 84 mg/dL [facility] Comment: Lower Risk: <200 mg/dL Average Risk: 200-239 mg/dL Higher Risk: >ta=371 mg/dL Triglyceride 104 mg/dL [facility] Comment: Average Risk/Lower Risk: <150 mg/dL Borderline High Risk: 150-199 mg/dL High Risk: 200-499 mg/dL Very High Risk: >fe=170 mg/dL HDL Cholesterol 40 mg/dL [facility] Comment: Males: ?? Higher Risk: <40 mg/dL Females: ?? HIgher Risk: <50 mg/dL LDL Cholesterol 23 mg/dL [facility] Comment: Lowest Risk: <100 mg/dL Lower Risk: 100-129 mg/dL Borderline High Risk: 130-159 mg/dL High Risk: 160-189 mg/dL Very High Risk: >rd=545 mg/dL Cholesterol/HDL Ratio 2.1 ratio [facility] Lipid Interpretation See Note [facility] Comment: Lipid management should be guided by a patient? s ASCVD risk, goals and preferences. ACC/AHA Guidelines recommend high intensity statin if clinical ASCVD or LDL greater than or equal to 190 mg/dL. http://[employer]/FRK-UAR-Zovdxyost Adults aged 40-75 with LDL 70-189 mg/dL should have their 10 year ASCVD risk estimated with the ACC/AHA ASCVD risk body shop estimator http://tools.acc.org/IQUVR-Rksr-Kpqmornla/ Statin should be discussed if risk greater [...] ORDERAB LES [facility] [place] [address] * (ABNORMAL) Lipase (09/12/2019 10:10 AM EDT) Lipase 71(H) 0 - 60 unit/L [facility] Blood specimen (specimen) 09/12/2019 10:10 AM EDT 09/12/2019 10:22 AM EDT Narrative Resulting Agency Comment Spec In Lab Tal Eagle MD CHEMISTRY ORDERAB LES Performing Organization Address [facility] Co de Phone Number [facility] [place] [address] * Lavender Tube HOLD (09/12/2019 10:10 AM EDT) Lavender Hold Sample in lab. [facility] Blood specimen (specimen) 09/12/2019 10:10 AM EDT 09/12/2019 10:22 AM EDT Tal Eagle MD HEMATOLOGY ORDERA BLES Performing Organization Address [facility] de Phone Number [facility] [place] [address] * Iron and TIBC (09/12/2019 10:10 AM EDT) Pathologist [facility] Iron 82 45 - 160 mcg/dL [facility] TIBC 269 250 - 450 mcg/dL [facility] Iron Saturation 30 20 - 50 % [facility] Blood specimen (specimen) 09/12/2019 10:10 AM EDT 09/12/2019 10:22 AM EDT Narrative Resulting Agency Comment Spec In Lab Tal Eagle MD CHEMISTRY ORDERAB LES Performing Organization Address [facility] Co de Phone Number [facility] [place] [address] * (ABNORMAL) Hemoglobin A1c (09/12/2019 10:10 AM EDT) Hemoglobin A1c 7.1(H) 4.3 - 5.6 % [facility] [...] Mellitus, Diabetes Care 2013; 36: Suppl. 1, B87-42 Estimated Average Glucose See note mg/dL [facility] [...] into estimated average glucose values. ??Diabetes Care 2008:31(8):8574-5753. Blood specimen (specimen) 09/12/2019 10:10 AM EDT 09/12/2019 10:23 AM EDT Narrative Resulting Agency Comment Spec In Lab Tal Eagle MD CHEMISTRY ORDERAB LES [facility] [place] [address] * Gold Tube HOLD (09/12/2019 10:10 AM EDT) [facility] Gold Hold Sample in lab. [facility] Blood specimen (specimen) 09/12/2019 10:10 AM EDT 09/12/2019 10:22 AM EDT Tal Eagle MD CHEMISTRY ORDERAB LES Performing Organization Address City/[facility]/ZIP Co de Phone Number [facility] [place] [address] * Folate, serum (09/12/2019 10:10 AM EDT) [facility] Folate 9.3 4.8 - 24.2 ng/mL [facility] Blood specimen (specimen) 09/12/2019 10:10 AM EDT 09/12/2019 10:22 AM EDT Narrative Resulting Agency Comment Spec In Lab Tal Eagle MD CHEMISTRY ORDERAB LES Performing Organization Address [facility]/ZIP Co de Phone Number [facility] [place] [address] * Ferritin (09/12/2019 10:10 AM EDT) [facility] Ferritin 246 30 - 400 ng/mL [facility] Comment: Pediatric reference ranges not verified at [facility], interpret with caution. Reference ranges for females greater than 50 years of age approach values for men, i.e., 30-400 ng/mL. Blood specimen (specimen) 09/12/2019 10:10 AM EDT 09/12/2019 10:22 AM EDT Narrative Resulting Agency Comment Spec In Lab Tal Eagle MD CHEMISTRY ORDERAB LES Performing Organization Address City/[facility]/ZIP Co de Phone Number [facility] [place] [address] * (ABNORMAL) CMP w/fasting Glucose (09/12/2019 10:10 AM EDT) [facility] Glucose Fasting 153(H) 65 - 99 mg/dL [facility] Comment: ?Fasting* Glucose Interpretive Criteria [...] of Diabetes Mellitus, Position Statement from the [place] [employer]. ??Diabetes Care, Volume 33, Supplement 1, Jul 2009 Blood Urea Nitrogen 16 10 - 20 mg/dL [facility] Creatinine 1.43 0.80 - 1.50 mg/dL [facility] Sodium 142 135 - 145 mmol/L [facility] [...] Chloride 103 98 - 107 mmol/L [facility] Carbon Dioxide 28 22 - 31 mmol/L [facility] Anion Gap 11 5 - 15 mmol/L [facility] Calcium 9.7 8.5 - 10.5 mg/dL [facility] Protein, Total 7.1 6.1 - 8.0 gm/dL [facility] Albumin 4.1 3.2 - 5.2 gm/dL [facility] Aspartate Aminotransferase 18 0 - 39 unit/L [facility] Alanine Aminotransferase 16 0 - 55 unit/L [facility] Alkaline Phosphatase 69 40 - 130 unit/L [facility] Bilirubin, Total 2.5(H) 0.2 - 1.3 mg/dL [facility] Est Glomerular Filtration Rate 49(L) >=60 mL/min/1. 73 m?? [facility] Comment: The eGFR was calculated using the CKD-EPI equation. As with all creatinine based estimates of kidney function, eGFR values calculated with the CKD-EPI equation are not accurate in patients with acute kidney failure, extremes of body mass or the acutely ill. http://[employer]/[facility]ONGAnkf eGFR 57(L) >=60 mL/min/1. 73 m?? [facility] Comment: The eGFR was calculated using the CKD-EPI equation. As with all creatinine based estimates of kidney function, eGFR values calculated with the CKD-EPI equation are not accurate in patients with acute kidney failure, extremes of body mass or the acutely ill. http://[employer]/[facility]ONGAnkf Blood specimen (specimen) 09/12/2019 10:10 AM EDT 09/12/2019 10:22 AM EDT Narrative Resulting Agency Comment Spec In Lab Tal Eagle MD CHEMISTRY ORDERAB LES Performing Organization Address [facility] Co de Phone Number [facility] [place] [address] * Amylase (09/12/2019 10:10 AM EDT) Amylase 46 28 - 100 unit/L [facility] Blood specimen (specimen) 09/12/2019 10:10 AM EDT 09/12/2019 10:22 AM EDT Narrative Resulting Agency Comment Spec In Lab Tal Eagle MD CHEMISTRY ORDERAB LES Performing Organization Address [facility] Co de Phone Number [facility] [place] [address] documented in this encounter Visit Diagnoses Diagnosis H/O kidney transplant Kidney replaced by transplant BK viremia Viremia, unspecified documented in this encounter Care Teams Biomedical Service Engineer Relationship Specialty Start Date End Date Urbano Denis DO [address] [place] [address] PCP - General 09/03/12 03/17/22 Ruchi Valles RN Nurse Clinic Transplant Surgery 07/30/15 documented as of this encounter
--- OUTSIDE RECORDS SUMMARY | 2024-04-04 13:59 | XMS_ITS | Encounter Summary ---
Author Organization [facility] [place] [address] Care Team Providers Care Refrigeration Engineering Teacher Name Role Phone Adeel Urbano KIRBY Primary Care Provider [phone] Reason for Visit * Reason Comments Medication Refill Encounter Details Date Type Department Care Team (Late st Contact Info) Description 10/14/2019 Refill [place] [phone] Tal Eagle MD [facility] [place] [address] Social History Tobacco Use Types Packs/Day Years [...] PM EDT Office Visit Cardiology at [address] [phone] Jay Urban MD [facility] [place] [address] 04/15/2024 10:00 AM EDT Hospital Encounter [place] [phone] Arrived documented as of this encounter Goals [...] on filedocumented in this encounter Care Teams Refrigeration Engineering Teacher Relationship Specialty Start Date End Date Urbano Denis DO [address] [place] [address] [address] [facility] [address] [place] [address] PCP - General 09/03/12 03/17/22 Ruchi Valles RN Nurse Clinic Transplant Surgery 07/30/15 documented as of this encounter
--- OUTSIDE RECORDS SUMMARY | 2024-04-04 13:59 | XMS_ITS | Encounter Summary ---
Author Organization [facility] [place] [address] Care Team Providers Care General Assembler Installer Name Role Phone Urbano Denis DO Primary Care Provider Encounter Details Date Type Department Care Team (Late st Contact Info) Description 02/15/2020 Telephone Cardiology at [address] [phone] Anel Proctor RN Social History Tobacco Use [...] exam if Cardiac clearance is being requested. [facility] now allowing patient to be accompanied by [...] PM EDT Office Visit Cardiology at [address] [phone] [facility] [place] [address] 04/15/2024 10:00 AM EDT Hospital Encounter [place] [phone] Arrived documented as of this encounter Goals Goal Patient Goal Type Associated Problems Recent Progress Patient-Stated? Author [facility] Medication Compliance and Understanding Patient Facing Action Plan On track( 017 10:41 AM EDT) No Selena Cisneros, [facility] Note: Patient Goal: Clear hepatitis C Timeframe to meet goal: within 12 weeks of therapy documented as of this encounter Visit Diagnoses Not on filedocumented in this encounter Care Teams General Assembler Installer Relationship Specialty Start Date End Date Urbano Denis DO [address] [place] [address] [address] [facility] 1 [place] [address] PCP - General 09/03/12 03/17/22 Ruchi Valles RN Nurse Clinic Transplant Surgery 07/30/15 documented as of this encounter
--- OUTSIDE RECORDS SUMMARY | 2024-04-04 13:59 | XMS_ITS | Encounter Summary ---
Author Organization [facility] [place] [address] Care Team Providers Care Slurry Blender Name Role Phone AdeelUrbano toscano Primary Care Provider Encounter Details Date Type Department Care Team (Late st Contact Info) Description 01/04/2020 Telephone [place] [address] Lazara Bhatia, RN Social History Tobacco Use [...] I would reorder a tacrolimus level to [facility] and that he should hold his tacrolimus dose prior to the blood draw. Cody verbalized understanding. documented in this encounter Plan of Treatment Upcoming Encounters Date Type Department Care Team (Late st Contact Info) Description 04/08/2024 1:40 PM EDT Office Visit Cardiology at [address] [phone] Jay Urban MD [facility] [place] [address] 04/15/2024 10:00 AM EDT Hospital Encounter Non-Invasive [place] [phone] Arrived documented as of this encounter Goals [...] transplant documented in this encounter Care Teams Slurry Blender Relationship Specialty Start Date End Date Urbano Denis DO [address] [place] [address] PCP - General 09/03/12 03/17/22 Ruchi Valles RN Nurse Clinic Transplant Surgery 07/30/15 documented as of this encounter
--- OUTSIDE RECORDS SUMMARY | 2024-04-04 13:59 | XMS_ITS | Encounter Summary ---
Author Organization [facility] [place] [address] Care Team Providers Care Vendette Name Role Phone AdeelUrbano toscano Primary Care Provider + [phone] Reason for Visit * Reason Onset Date Comments Medication Refill 07/08/2019 Encounter Details Date Type Department Care Team (Late st Contact Info) Description 07/08/2019 Refill Cardiology at [address] [phone] Byron Brown MD [facility] [place] [address] Medication Refill Social History Tobacco Use Types [...] PM EDT Office Visit Cardiology at [address] [phone] Jay Urban MD [facility] [place] [address] 04/15/2024 10:00 AM EDT Hospital Encounter Non-[place] [address] Arrived documented as of this [...] fibrillation documented in this encounter Care Teams Vendette Relationship Specialty Start Date End Date Urbano Denis DO [address] [place] [address] PCP - General 09/03/12 03/17/22 Ruchi Valles RN Nurse Clinic Transplant Surgery 07/30/15 documented as of this encounter
--- OUTSIDE RECORDS SUMMARY | 2024-04-04 13:59 | XMS_ITS | Encounter Summary ---
Author [place] [address] Care Team Providers Care Neuropathologist Name Role Phone AdeelUrbano toscano Primary Care Provider + [phone] Reason for Visit * Reason Onset Date Comments Medication Refill Medication Refill 02/14/2020 Encounter Details Date Type Department Care Team (Late st Contact Info) Description 02/06/2020 [place] [phone] [place] [address] Atrial fibrillation with RVR - had flutter initially, then fib; Coronary artery disease, angina presence unspecified, unspecified vessel or lesion type, unspecified whether algaaciq or transplanted heart Social History Tobacco Use [...] PM EDT Office Visit Cardiology at [address] [phone] Jay Urban MD [facility] [place] [place] [address] 04/15/2024 10:00 AM EDT Hospital Encounter Non-Invasive Cardiology Lab [facility] [place] [address] Arrived documented as of this encounter Goals [...] (Bezet) 435 ms MUSE SYSTEM Calculated P [place] 49 degrees MUSE SYSTEM Calculated R [place] -65 degrees MUSE SYSTEM Calculated T [place] -5 degrees MUSE SYSTEM INTERPRETATION Sinus bradycardia Left anterior fascicular block Left ventricular hypertrophy with QRS widening Abnormal ECG When compared with ECG of 31-MAR-2019 13:58, No significant change was found Confirmed by MD Phillip Daniel ([id number]) on 02/17/2020 5:16:28 PM MUSE SYSTEM 02/17/2020 2:13 PM EDT 02/17/2020 5:16 PM EDT Danny Hicks MD ECG ORDERABLES MUSE SYSTEM documented in this encounter Visit Diagnoses Diagnosis Atrial fibrillation with RVR - had flutter initially, then fib Atrial fibrillation Coronary artery disease, angina presence unspecified, unspecified vessel or lesion type, unspecified whether algaaciq or transplanted heart documented in this encounter Care Teams Neuropathologist Relationship Specialty Start Date End Date Urbano Denis DO [address] [place] [address] [address] [place] [address] PCP - General 09/03/12 03/17/22 Hai STANLEY,Ruchi Nurse Clinic Transplant Surgery 07/30/15 documented as of this encounter
--- OUTSIDE RECORDS SUMMARY | 2024-04-04 13:59 | XMS_ITS | Encounter Summary ---
Author Organization [facility] [place] [address] Care Team Providers Care Grain Distributor Name Role Phone AdeelUrbano Primary Care Provider Encounter Details Date Type Department Care Team (Late st Contact Info) Description 12/21/2019 External Results Solid [place] [phone] Tal Eagle MD [facility] [place] [address] Social History Tobacco Use Types Packs/Day Years [...] PM EDT Office Visit Cardiology at [address] [phone] Jay Urban MD [facility] [place] [address] 04/15/2024 10:00 AM EDT Hospital Encounter Non-[place] [address] Arrived documented as of this encounter Goals [...] on filedocumented in this encounter Care Teams Grain Distributor Relationship Specialty Start Date End Date Urbano Denis DO [address] [place] [address] [address] [place] [address] PCP - General 09/03/12 03/17/22 Ruchi Valles RN Nurse Clinic Transplant Surgery 07/30/15 documented as of this encounter
--- OUTSIDE RECORDS SUMMARY | 2024-04-04 13:59 | XMS_ITS | Encounter Summary ---
Author Organization [facility] [place] [address] Care Team Providers Care Chief Of Party Name Role Phone AdeelUrbano toscano Primary Care Provider [phone] Reason for Visit * Reason Onset Date Comments Medication Refill 05/04/2019 Encounter Details Date Type Department Care Team (Late st Contact Info) Description 05/04/2019 Refill Cardiology at [address] [phone] Byron Brown MD [facility] [place] [address] Medication Refill Social History Tobacco Use Types [...] PM EDT Office Visit Cardiology at [address] [phone] Jay Urban MD [facility] [place] [place] [address] 04/15/2024 10:00 AM EDT Hospital Encounter Non-[place] [address] Arrived documented as of this [...] fibrillation documented in this encounter Care Teams Chief Of Party Relationship Specialty Start Date End Date Urbano Denis DO [address] [place] [address] PCP - General 09/03/12 03/17/22 Ruchi Valles RN Nurse Clinic Transplant Surgery 07/30/15 documented as of this encounter
--- OUTSIDE RECORDS SUMMARY | 2024-04-04 14:00 | XMS_ITS | Encounter Summary ---
Author Organization [facility] [place] [address] Care Team Providers Care Electrical Maintenance Mechanic Name Role Phone Adeel Urbano KIRBY Primary Care Provider [phone] Reason for Visit * Reason Onset Date Comments Other 02/10/2019 Encounter Details Date Type Department Care Team (Late st Contact Info) Description 02/10/2019 [place] [phone] Zehra Craig Other Social History Tobacco Use [...] PM EDT Office Visit Cardiology at [address] [phone] Jay Urban MD [facility] [place] [address] 04/15/2024 10:00 AM EDT Hospital Encounter Non-Invasive [...] on filedocumented in this encounter Care Teams Electrical Maintenance Mechanic Relationship Specialty Start Date End Date Urbano Denis DO [address] [place] [address] PCP - General 09/03/12 03/17/22 Ruchi Valles RN Nurse Clinic Transplant Surgery 07/30/15 documented as of this encounter
--- OUTSIDE RECORDS SUMMARY | 2024-04-04 14:00 | XMS_ITS | Encounter Summary ---
[facility] Organization [facility] [place] [address] Care Team Providers Care Senior Packaging Engineer Name Role Phone Urbano Denis DO Primary Care Provider Reason for Referral * Consultation (Routine) - Closed Specialty Diagnoses / Procedures Referred By Contac t Referred To Contact Infectious Diseases Diagnoses Bacteremia due to Enterococcus Pyelonephritis, acute Enterococcus faecalis infection Therese Lam MD [facility] [place] [address] Therese Lam MD [facility] [place] [address] Referral ID Status Reason Start Date Expiration Date V isits Requested Visits Authorized [id number] Closed Assume Subset of Care 02/09/2019 02/09/2020 1 1 Reason for Visit * Auth/Cert Specialty Diagnoses / Procedures Referred By Contac t Referred To Contact Diagnoses Fever PNEUMONIA Referral ID Status Reason Start Date Expiration Date Visits Re quested Visits Authorized [id number] 1 1 Encounter Details Date Type Department Care Team (Latest Contact Info) Description 02/06/2019 10:20 PM EDT - 02/11/2019 1:48 PM EDT Hospital Encounter [address] [address] Alessandro Limon DO [facility] [place] [address] [place] [address] [place] [address] Dyspnea, unspecified type; Bacteremia due to Enterococcus; [...] Ethel Bolden Patient Age: 68 y.o. Language: Gabonese Race: White Ethnicity: Not nor Admit date: [...] antimotility agents. - We are discharging Mr. oBlden on 20mg PO Lasix every morning. During [...] please contact your inpatient physician through the [facility] Prospect[facility] . Issues afterhours and on weekends will [...] Vitamin D deficiency ??? 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 MCC current use of immunosuppressive drug ??? CAH [...] soft also with bradycardia patient, notably hypoxic eipgcilxu63% Ventimask, chest x-ray with evidence of pulmonary [...] PT 23.5* INR 2.0 Studies: Blood culture [facility] 02/06 - no growth 4 days Urine [...] Your Primary Care Provider: Urbano Denis DO [phone] For questions regarding this document or issues relating to this hospitalization on the Medical Service, please contact your inpatient physician through the [facility] [employer] . Issues afterhours and on weekends will be handled by the Hospitalist staff on-call. General Instructions None Future Appointments and Orders Future Orders Complete By Expires OPAT: Order / Recommendation for Post Discharge IV Antibiotic Management [JEJ461 CPT(R)] As directed Process Instructions: If no progress note charted, please enter Clinical details in comments. Scheduling Instructions: Comments: Please Fax all results to: OPAT Program Infectious Disease Section [facility], [place] [address] FAX: Line care instructions per [facility] OPAT Program protocol. After hours, please contact the Infectious Disease Physician senior manager mergers & acquisitions at . If this order was signed greater than 72 hours prior to [facility] discharge, please call to confirm the accuracy [...] AM EDT ?? Office of Care Management /Tree Chipper(CM) Facility Discharge on IV AntibioticTherapy ?? Patient will require continued IV antibiotic therapy after discharge from the hospital per Dr. Gandhi is medically ready for discharge. ?? Patient has accepted a bed offer from: [facility] Acute Rehabilitation and Sub-Acute (Swing) Rehab Levels of Care [address] [place] [address] IV access: Peripheral IV Line - Single [...] Your Primary Care Provider: Urbano Denis DO [phone] For questions regarding this document or issues relating to this hospitalization on the Medical Service, please contact your inpatient physician through the [facility] . Issues afterhours and on weekends will [...] Vitamin D deficiency ??? 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 MCC current use of immunosuppressive drug ??? CAH [...] spent >30 minutes (Day of Discharge Code 66281) involved in the final examination of the [...] Physician: Danny Hicks MD Patient discharged to [facility] with in personal vehicle. Patient left with all personal belongings. IV is in place per MD orders. Documentation packet given to to be given to facility. DC Summary faxed to facility. Report called to JADEN Bauman at [facility]. Patient escorted to [facility] by RN. * Mahsa Celestin RN - 02/11/2019 1:11 PM EDT Marisela and Jolly from [facility] confirmed son has contacted them and oxygen needs will be delivered to patient today. Marisela states son was instructed to call [facility] upon discharge to schedule time of delivery. CM will continue to follow and assist with discharge planning and coordination of care as indicated. * Jolly Blum - 02/11/2019 10:23 AM EDT Images from the original note were not included. Office of Care Management/Cell Liner Patient Name: Ethel Bolden : 1950 Patient has been offered a swing bed at [facility], today 02/11 Family will transport patient to facility. Copy of patient demographics [place] Out of Hospital DNR/DNI order, if active MD to MD report to Dr Ramos at [phone] Please call Nursing Report to [phone] , ask for filler shredding machine loader. Info to accompany patient: Narcotic Prescriptions Copies of Medication Administration Records and IV sheets for past 10 days. Plan: Cell Liner will be available to the patient and Tree Chipper-RN and/or Social Workerfor further assistance. Patient will be discharged to: [facility] [address] [place] [address] Jolly Blum Cell Liner * Mahsa Celestin RN - 02/11/2019 10:17 AM EDT Office of Care Management /Tree Chipper(CM) Facility Discharge on IV AntibioticTherapy Patient will require continued IV antibiotic therapy after discharge from the hospital per Dr. Gandhi is medically ready for discharge. Patient has accepted a bed offer from: [facility] Acute Rehabilitation and Sub-Acute (Swing) Rehab Levels of Care [address] [place] [address] IV access: Peripheral IV Line - Single Lumen, cephalic vein (lateral side of arm), right 20 gauge; 1 in length Placed 02/07/19 * Mahsa Celestin RN - 02/11/2019 9:19 AM EDT Spoke with Sonia at [facility], for patient to receive services, VNA would need complete support from with antibiotic therapy. Patient accepted bed at [facility]. [facility]NA and [facility] made aware. Patient [...] discharge planning needs. I have reviewed the [facility], Office of Care Management letter from the Forestry Tree Pruner pertaining to rehab referrals. I have also reviewed a letter describing our affiliations within the [facility]. I have provided information on the right to choose where referrals are placed. ?? I reviewed the different levels of rehab including SNF, swing, acute and LTAC. ?? I provided a list of facilities within the preferred geographic area. ?? I have requested that the patient provide at least three choices for referral. ?? The patient requested referrals to: 1. [facility] [address] [place] [address] ?? [phone] [facility] [phone] FAX: [phone] Nurse to Nurse report: [phone] [place] [address] 3. [place], [place], [place] PHONE: [phone] ext [phone] FAX: [phone] ?? Expected date of discharge: 02/11/19 Note routed to Cell Liner who will communicate referrals to facilities and provide any required information. * Venus Chand RD - 02/10/2019 1:36 PM EDT Nutrition Note: Patient is now downgraded to floor medicine. He continues to eat 100%. He is not available in room at time of my visit. Will follow up to offer education as able/appropriate. THANKS REYNALDO Mckeon Page [phone] * Mahsa Celestin RN - 02/10/2019 12:46 PM EDT I reviewed a list of Home Health Agencies/DME vendors with patient which serve the preferred geographic area. Education provided about the right to choose where referrals are placed. Patient requests referral to [facility] PHONE: [phone] FAX: [phone] Expected date of discharge: 02/11/19 Referral routed to the Cell Liner for matching with agency/vendor and to provide any required information. Patient asked for this va underwriter to speak with in regards to choosing an infusion vendor, he was not able to recall who he had used in 2016. This va underwriter will call . Called patient, she did not provide an infusion company's name and stated she is not taking patient home on IV antibiotics. She asked for a call from Dr. Hicks. made aware. Discussed with patient that did not have the name of infusion vendor. He agreed to a referral to be placed to: [place], [place] or Referral routed to the Cell Liner for matching with vendor and to provide [...] minimumof two midnights or is on the [facility] inpatient only procedure list (status C) [...] us. Leelee Church MD 02/09/2019 2:00 PM 316 ID ATTENDING I have seen the patient, [...] other appointment? What specialty? Weekly infusion at [facility]? [ ] yes: if so, please indicate [...] scale - Disposition: PT/OT eval, transfer from [facility] today IPI Certification I certify that I am a D-H credentialed attending provider with admitting privileges and that the patient meets or has met medical necessity to require an inpatient IPI level of care meeting a minimumof two midnights or is on the [facility] inpatient only procedure list (status C) [...] scale - Disposition: PT/OT eval, transfer from [facility] today IPI Certification I certify that I am a D-H credentialed attending provider with admitting privileges and that the patient meets or has met medical necessity to require an inpatient IPI level of care meeting a minimumof two midnights or is on the [facility] inpatient only procedure list (status C) [...] chloride 0.9 % (flush) * Elba Maciel, RAILCAR FOREMAN - 02/08/2019 3:09 AM EDT Respiratory Therapy [...] contact the number below. Electronically signed by: Franca Francisco [facility] ([phone]), at 02/07/2019 12:02 AM ASSESSMENT: received on high flow - nasal cannula [...] contact the number below. Electronically signed by: Franca Francisco [facility] ([phone]), at 02/07/2019 12:02 AM ASSESSMENT: Patient received on HFNC 50L/50%. Settings weaned [...] hepatitis) K73.2 ??? Prophylactic immunotherapy Z29.8 ??? superintendent container terminal current use of immunosuppressive drug Z79.899 ??? [...] encounter: 101.4 kg (223 lb 9.6 oz). [place] Body Weight (IBW): [place] body weight: 75.3 kg (166 lb 0.1 [...] reach the patient's provider, Suzy Hicks MD #[id number], regarding above. REYNALDO URIBE Beeper #: [phone] * Danny Hicks MD - 02/07/2019 8:27 [...] Glycemic control: insulin sliding scale - [facility] Cert[facility] I certify that I am a D-H credentialed attending provider with admitting privileges and that the patient meets or has met medical necessity to require an inpatient IPI level of care meeting a minimumof two midnights or is on the [facility] inpatient only procedure list (status C) due to: acute respiratory compromise and/or hypoxia requiring assessment every 4 hours and the ability to respond immediately to the patient's need Danny Hicks MD TEAM/PAGER: [phone] Subjective/24hr events: - pt reports feeling better [...] chloride 0.9 % (flush) * Les Betancourt [facility] - 02/07/2019 3:28 AM EDT Respiratory [...] contact the number below. Electronically signed by: Franca Francisco [facility] ([phone]), at 02/07/2019 12:02 AM ASSESSMENT: ~02:30 RAILCAR FOREMAN paged to assess pt for increasing FiO2 [...] 02/06/2019 8:32 PM EDT [facility] History and Physical History provided by: [...] soft also with bradycardia patient, notably hypoxic buqtprebc79% Ventimask, chest x-ray with evidence of pulmonary [...] EXTREMITY performed by Que Amaro MD at [facility] MAIN OR ??? PRO CYSTOURETHROSCOPY, URETER CATHETER Left 06/17/2018 CYSTO, RETROGRADE, URETEROPYELOGRAPHY (WRVU 2.37) performed by Edinson Grider III, MD at [facility] ??? PRO REIMPLANT URETER, SINGLE URETER Left 05/20/2016 @URETERONEOCYSTOSTOMY ANASTOMOSIS OF SINGLE URETER TO BLADDER performed by Santosh Arredondo MD at [facility] OR ??? PRO REIMPLANT URETER, SINGLE URETER N/A 05/20/2016 @URETERONEOCYSTOSTOMY ANASTOMOSIS OF SINGLE URETER TO BLADDER performed by Que Amaro MD at [facility] OR ??? PRO TOTAL KNEE ARTHROPLASTY Right 11/25/2017 TOTAL KNEE ARTHROPLASTY (WRVU 20.72) performed by Breezy Dale MD at [facility] OR ??? PRO TRANSPLANT, PREP CADAVER RENAL GRAFT N/A 09/16/2015 @PREPARATION CADAVERIC RENAL ALLOGRAFT performed by Franko Larkin MD at [facility] OR ??? PRO TRANSPLANTATION OF KIDNEY N/A 09/16/2015 @KIDNEY TRANSPLANT, WITHOUT RECIPIENT NEPHRECTOMY performed by Franko Larikn MD at [facility] OR ??? RENAL TRANSPLANT LEFT Left 01/31/2019 US Renal Transplant Left 01/31/2019 [facility]TR[facility] Family Medical History: Family History [...] file Gets together: Not on file Attends voodoo service: Not on file Active member of [...] floor Social History: lives with his in [place], [place] Home set-up: 2-level home but stays [...] Gait: good without device to bend to pick up driver caution sign and turn to place itto [...] 30(functional mobility, gait) TORIE HAGAN, PT Pager: [phone] Physical Therapy Inpatient Rehabilitation Department * Plan [...] 2-3 times/wk Total Evaluation Minutes, Occupational Therapy: 45(RI) Pager: [phone] СЕРГЕЙ Schmidt Occupational Therapy Rehabilitation Department * [...] 133 K: 3.8 P: 2.1 Blood culture [facility] 02/06 - no growth 3 days Urine [...] pending OPAT orders 02/11 or 02/12 Destinee Leggett M4 Pager: [phone] * Plan of Care - Josefina English RN - 02/10/2019 2:50 AM EDT Problem: Patient Care Overview Goal: Plan of Care Review Outcome: Ongoing (Interventions Implemented as Appropriate) 02/10/19 0236 Coping/Psychosocial Plan Of Care Reviewed With patient Plan of Care Review Progress improving OUTCOME EVALUATION NOTE: OUTCOME SUMMARY: Pt transferred to [facility] room 265 at beginning of shift. [...] <-- 132 <--133 K: 3.6 Blood culture [facility] 02/06 - no growth 2 day Urine [...] for her ?? Destinee Leggett M4 Pager: [phone] * Plan of Care - Torie Hagan, [...] performed by Que Amaro MD at [facility] OR ??? PRO CYSTOURETHROSCOPY, URETER CATHETER Left 06/17/2018 CYSTO, RETROGRADE, URETEROPYELOGRAPHY (WRVU 2.37) performed by Edinson Grider III, [facility] ??? PRO REIMPLANT URETER, SINGLE URETER Left 05/20/2016 @URETERONEOCYSTOSTOMY ANASTOMOSIS OF SINGLE URETER TO BLADDER performed by Santosh Arredondo MD at [facility] OR ??? PRO REIMPLANT URETER, SINGLE URETER N/A 05/20/2016 @URETERONEOCYSTOSTOMY ANASTOMOSIS OF SINGLE URETER TO BLADDER performed by Que Amaro MD at [facility] OR ??? PRO TOTAL KNEE ARTHROPLASTY Right 11/25/2017 TOTAL KNEE ARTHROPLASTY (WRVU 20.72) performed by Breezy Dale MD at [facility] OR ??? PRO TRANSPLANT, PREP CADAVER RENAL GRAFT N/A 09/16/2015 @PREPARATION CADAVERIC RENAL ALLOGRAFT performed by Franko Larkin MD at [facility] OR ??? PRO TRANSPLANTATION OF KIDNEY N/A 09/16/2015 @KIDNEY TRANSPLANT, WITHOUT RECIPIENT NEPHRECTOMY performed by Franko Larkin MD at [facility] MAIN OR ??? US RENAL TRANSPLANT LEFT Left 01/31/2019 US Renal Transplant Left 01/31/2019 [facility] ULTRASOUND ??? US RENAL TRANSPLANT LEFT Left 02/07/2019 US Renal Transplant Left 02/07/2019 [facility] Social History: lives with his in [place], [place] Home set-up: 2-level home but stays [...] Minutes, Physical Therapy: 65(eval; pt/family ed/discussion) TORIE HAGNA, PT Pager: [phone] Physical Therapy Inpatient Rehabilitation Department * Plan [...] EXTREMITY performed by Que Amaro MD at [facility] MA[facility] OR ??? PRO CYSTOURETHROSCOPY, URETER CATHETER Left 06/17/2018 CYSTO, RETROGRADE, URETEROPYELOGRAPHY (WRVU 2.37) performed by Edinson Grider III, MD at [facility] ??? PRO REIMPLANT URETER, SINGLE URETER Left 05/20/2016 @URETERONEOCYSTOSTOMY ANASTOMOSIS OF SINGLE URETER TO BLADDER performed by Santosh Arredondo MD at [facility] OR ??? PRO REIMPLANT URETER, SINGLE URETER N/A 05/20/2016 @URETERONEOCYSTOSTOMY ANASTOMOSIS OF SINGLE URETER TO BLADDER performed by Que Amaro MD at [facility] OR ??? PRO TOTAL KNEE ARTHROPLASTY Right 11/25/2017 TOTAL KNEE ARTHROPLASTY (WRVU 20.72) performed by Breezy Dale MD at [facility] OR ??? PRO TRANSPLANT, PREP CADAVER RENAL GRAFT N/A 09/16/2015 @PREPARATION CADAVERIC RENAL ALLOGRAFT performed by Franko Larkin MD at [facility] OR ??? PRO TRANSPLANTATION OF KIDNEY N/A 09/16/2015 @KIDNEY TRANSPLANT, WITHOUT RECIPIENT NEPHRECTOMY performed by Franko Larkin MD at [facility] OR ??? US RENAL TRANSPLANT LEFT Left 01/31/2019 US Renal Transplant Left 01/31/2019 [facility]TR[facility] ??? US RENAL TRANSPLANT LEFT Left 02/07/2019 US Renal Transplant Left 02/07/2019 [facility] Social History: Patient lives with his Mara in a home in with 4 steps to enter, stays on the 1st level, has [employer] shower w/ a seat and grab bars [...] increased) Vision & Perception: ?? corrective lenses display director (on during session) ?? Difficulty seeing small print on phone but improved w/ increased font size Communication: WFL Range of motion, strength, coordination: Hand dominance: right Bilateral UEs are within functional limitations for strength and ROM (few ux information architect slips w/ tasks possibly r/t tingling) LE [...] and measurable assessment of functional outcome. Pager: [phone] GAYLE MCCRARY OT 02/09/2019 Occupational Therapy Rehabilitation Department * Plan of Care - oJanne Dawkins RN - 02/09/2019 2:58 AM EDT Problem: Patient Care Overview Goal: Plan of Care Review Outcome: Ongoing (Interventions Implemented as Appropriate) 02/08/19 1850 02/08/191999 Coping/Psychosocial Plan Of Care Reviewed With -- patient Plan of Care Review Progress improving -- OUTCOME EVALUATION NOTE: OUTCOME SUMMARY: Pt has been sleeping between care. No acute events this shift. Pt denied pain. Continues to thjjtjw0K via NC to maintain O2 sats >92%. [...] CD4:CD8: 2.31 IgG = 884 Blood culture [facility] 02/06 - no growth 1 day Urine [...] floor today ?? Destinee Leggett M4 Pager: [phone] * Consult Note - Juancho Zuluaga, [facility] - 02/07/2019 7:45 PM EDT Clinical Pharmacist Note-Vancomycin Ethel Bolden [id number] Ethel Bolden is a 68 y.o. [...] have. Alternately, during off-hours you may call [phone] to contact a pharmacist. JUANCHO ZULUAGA RPH [...] evaluation in the ED. Initially going to [facility] in [place] he was noted to be febrile and [...] EXTREMITY performed by Que Amaro MD at [facility] MAIN OR ??? PRO CYSTOURETHROSCOPY, URETER CATHETER Left 06/17/2018 CYSTO, RETROGRADE, URETEROPYELOGRAPHY (WRVU 2.37) performed by Edinson Grider III, [facility] ??? PRO REIMPLANT URETER, SINGLE URETER Left 05/20/2016 @URETERONEOCYSTOSTOMY ANASTOMOSIS OF SINGLE URETER TO BLADDER performed by Santosh Arredondo MD at [facility] OR ??? PRO REIMPLANT URETER, SINGLE URETER N/A 05/20/2016 @URETERONEOCYSTOSTOMY ANASTOMOSIS OF SINGLE URETER TO BLADDER performed by Que Amaro MD at [facility] OR ??? PRO TOTAL KNEE ARTHROPLASTY Right 11/25/2017 TOTAL KNEE ARTHROPLASTY (WRVU 20.72) performed by Breezy Dale MD at [facility] OR ??? PRO TRANSPLANT, PREP CADAVER RENAL GRAFT N/A 09/16/2015 @PREPARATION CADAVERIC RENAL ALLOGRAFT performed by Franko Larkin MD at [facility] OR ??? PRO TRANSPLANTATION OF KIDNEY N/A 09/16/2015 @KIDNEY TRANSPLANT, WITHOUT RECIPIENT NEPHRECTOMY performed by Franko Larkin MD at [facility] OR ??? US RENAL TRANSPLANT LEFT Left 01/31/2019 US Renal Transplant Left 01/31/2019 [facility] ??? US RENAL TRANSPLANT LEFT Left 02/07/2019 US Renal Transplant Left 02/07/2019 [facility] Medications: ??? glucose (GLUTOSE) 40% [...] concerns. Leelee Church MD 02/07/2019 5:52 PM 8720 ID ATTENDING I have seen the patient, [...] Planning: written AD ,on file addy perkins [phone]/ [phone] Current Coping/Education/Information Needs: CM explained VNA, IPR,SNF [...] COMMERCIAL GENERIC Prescription Coverage: yes Preferred Pharmacy: [facility] Primary Care Provider: Urbano Denis DO [phone] Patient/Caregiver Goals of Treatment: home with VNA Potential Needs for Transition of Care: Rehab/SNF: na Home Health: VNA DME: owns cane/FWW Dialysis: ? Community Resources: na Transportation: Anticipated Barriers to Discharge/Special Considerations: had called renal transplant tea, to state she needed help at home with spouse as she cannot handle him anymore CM Will place VNA referral and place PLAN MANAGER in VNA orders as well as PLAN MANAGER consul tfor on CM stickynote Assessment: 68yowm [...] of care planning. Patricia Jones RN Pager: [phone] * Med Student Progress Note - Dsetinee Ochoa - 02/07/2019 11:03 AM EDT Med [...] urine cultures ?? Destinee Leggett M4 Pager: [phone] * Consult Note - Ozzy Lane, RN - 02/07/2019 4:00 AM EDT Life Safety Note [id number] Patient admitted to [facility] from OSH with increased weakness and SOB. Patient confused to time/dateyear. PCXR at 2352 showed cardiomegaly with pulmonary edema. Lasix 40 mg IV administered at 0034. [place] condom applied to patient. Became febrile at 0213, 39.5 with rigors. Tylenol administered by primary nurse. Heart Rate dksjxuo31's-110's, regular ,blood pressure 90's/70's, RR mid 30's, SOB mildly labored. Oxygen requirementsincreasing. Hi-Compa NC initiated by RAILCAR FOREMAN. ABG on Fio2 50% : 7.50/33/77/24.7/94.9, lactate 1.5 Patientstarted on ceftazidime and vancomycin. Patient remains confused to date/time/year. WBC now 19.7. A/P ? Heart failure/pneumonia [facility] for [facility] monitoring; to [facility] in ICU room 6. MARK OhN ,CCRN,RN documented in this encounter Plan of Treatment Upcoming Encounters Date Type Department Care Team (Late st Contact Info) Description 04/08/2024 1:40 PM EDT Office Visit Cardiology at [address] [address] Jay Urban MD [facility] [place] [address] 04/15/2024 10:00 AM EDT Hospital Encounter [place] [address] Arrived Scheduled Referrals Name Type Priority Associated Diagnoses Order Schedule OPAT: Order / Recommendation for Post Discharge IV Antibiotic Management Outpatient Referral Routine Bacteremia due to Enterococcus Pyelonephritis, acute Enterococcus faecalis infection Ordered: 02/09/2019 documented as of this encounter Goals Goal Patient Goal Type Associated Problems Recent Progress Patient-Stated? Author [facility] Medication Compliance and Understanding Patient Facing [...] Glucose, POC 182 65 - 199 mg/dL [place] [facility] Comment: Supplemental ranges: <140 mg/dL before meals <180 mg/dL all other times of the day Blood specimen (specimen) 02/11/2019 11:28 AM EDT 02/11/2019 11:28 AM EDT Danny Hicks MD POINT OF CARE TEST O RDERABLES Performing Organization Address City/State/[facility] Co de Phone Number [facility] [place] [address] * POCT Glucose (02/11/2019 6:51 AM EDT) Glucose, POC 134 65 - 199 mg/dL [facility] Comment: Supplemental ranges: <140 mg/dL before meals <180 mg/dL all other times of the day Blood specimen (specimen) 02/11/2019 6:51 AM EDT 02/11/2019 6:51 AM EDT Danny Hicks MD POINT OF CARE TEST O RDERABLES [facility] [place] [address] * Basic Metabolic Panel (non-fasting) (02/11/2019 5:43 AM EDT) Glucose 155 65 - 199 mg/dL [facility] Comment:Diabetes: >=200 mg/d L plus symptoms Blood Urea Nitrogen 17 10 - 20 mg/dL [facility] Creatinine 1.20 0.80 - 1.50 mg/dL [facility] Sodium 138 135 - 145 mmol/L [facility] Potassium 3.8 3.5 - 5.0 mmol/L [facility] Comment: Please note: ??Patients with WBC >100,000 may have falsely elevated Potassium levels. ??For accurate Potassium quantification in these patients send serum separator tube (gold top) for subsequent determinations. ??Contact the Clinical Chemistry Laboratory if there are any questions. Chloride 99 98 - 107 mmol/L [facility] Carbon Dioxide 28 22 - 31 mmol/L [facility] Anion Gap 11 5 - 15 mmol/L [facility] Calcium 8.6 8.5 - 10.5 mg/dL [facility] Est Glomerular Filtration Rate 61 >=60 mL/min/1. 73 m?? [facility] Comment: The eGFR was calculated using the CKD-EPI equation. As with all creatinine based estimates of kidney function, eGFR values calculated with the CKD-EPI equation are not accurate in patients with acute kidney failure, extremes of body mass or the acutely ill. [email or web address]/[facility]kf eGFR 71 >=60 mL/min/1. 73 m?? [facility] Comment: The eGFR was calculated using the CKD-EPI equation. As with all creatinine based estimates of kidney function, eGFR values calculated with the CKD-EPI equation are not accurate in patients with acute kidney failure, extremes of body mass or the acutely ill. [email or web address]kf Blood specimen (specimen) 02/11/2019 5:43 AM EDT 02/11/2019 5:57 AM EDT Narrative Resulting Agency Comment Spec In Lab Danny Hicks MD CHEMISTRY ORDERABLES [facility] [place] [address] * (ABNORMAL) Hemogram (02/11/2019 5:43 AM EDT) White Blood Cell 9.2 4.0 - 9.5 x10(3)/mc L [facility] Red Blood Cell 4.39(L) 4.58 - 5.54 x10(6)/mc L [facility] Hemoglobin 13.4(L) 13.7 - 16.5 gm/dL [facility] Hematocrit 39.9(L) 40.5 - 48.5 % [facility] Mean Cell Volume 90.9 82.9 - 93.1 [facility] Mean Cell Hemoglobin 30.5 27.5 - 32.1 pg [facility] Mean Cell Hemoglobin Concentration 33.6 32.0 - 35.7 gm/dL [facility] Platelet 281 145 - 357 x10(3)/mc L [facility] RDW Standard Deviation 43.1 36.0 - 45.0 [facility] RDW coefficient of variation 13.2 11.4 - 13.8 % [facility] Mean Platelet Volume 9.5 7.6 - 12.9 [facility] NRBC% auto 0.0 % [facility] NRBC Absolute 0.000 0.000 - 0.000 x10(3)/ L [facility] Blood specimen (specimen) 02/11/2019 5:43 AM EDT 02/11/2019 5:57 AM EDT Narrative Resulting Agency Comment Spec In Lab Danny Hicks MD HEMATOLOGY ORDERABLE S [facility] [place] [address] * POCT Glucose (02/10/2019 9:05 PM EDT) Glucose, POC 181 65 - 199 mg/dL [facility] Comment: Supplemental ranges: <140 mg/dL before meals <180 mg/dL all other times of the day Blood specimen (specimen) 02/10/2019 9:05 PM EDT 02/10/2019 9:05 PM EDT Danny Hicks MD POINT OF CARE TEST O TED Performing Organization Address [facility] Co de Phone Number [facility] [place] [address] * POCT Glucose (02/10/2019 4:53 PM EDT) Glucose, POC 165 65 - 199 mg/dL [facility] Comment: Supplemental ranges: <140 mg/dL before meals <180 mg/dL all other times of the day Blood specimen (specimen) 02/10/2019 4:53 PM EDT 02/10/2019 4:53 PM EDT Danny Hicks MD POINT OF CARE TEST Mario JEAN Performing Organization Address [facility] Co de Phone Number [facility] [place] [address] * POCT Glucose (02/10/2019 11:12 AM EDT) Glucose, POC 175 65 - 199 mg/dL [facility] Comment: Supplemental ranges: <140 mg/dL before meals <180 mg/dL all other times of the day Blood specimen (specimen) 02/10/2019 11:12 AM EDT 02/10/2019 11:12 AM EDT Danny Hicks MD POINT OF CARE TEST O TED Performing Organization Address [facility]/ZIP Co de Phone Number [facility] [place] [address] * POCT Glucose (02/10/2019 6:51 AM EDT) [facility] Glucose, POC 126 65 - 199 mg/dL [facility] Comment: Supplemental ranges: <140 mg/dL before meals <180 mg/dL all other times of the day Blood specimen (specimen) 02/10/2019 6:51 AM EDT 02/10/2019 6:51 AM EDT Danny Hicks MD POINT OF CARE TEST O RDERABLES Performing Organization Address City/[facility]/ZIP Co de Phone Number [facility] [place] [address] * (ABNORMAL) Phosphorus (02/10/2019 5:46 AM EDT) [facility] Phosphorus 2.1(L) 2.5 - 4.5 mg/dL [facility] Blood specimen (specimen) Venous Draw / Unknown 02/10/2019 5:46 AM EDT 02/10/2019 7:11 AM EDT Narrative Resulting Agency Comment Spec In Lab Danny Hicks MD CHEMISTRY ORDERABLES Performing Organization Address City/[facility]/ZIP Co de Phone Number [facility] [place] [address] * (ABNORMAL) Differential, Automated (02/10/2019 5:46 AM EDT) [facility] Neutrophil % 72.7 % [facility] Neutrophil Absolute 6.58(H) 1.70 - 6.10 x10(3)/mc L [facility] Lymph % 11.6 % [facility] Lymphocytes Abs 1.0 0.9 - 3.2 x10(3)/mc L [facility] Monocyte % 13.5 % [facility] Monocyte Abs 1.2(H) 0.3 - 0.9 x10(3)/mc L [facility] Eos % 1.1 % [facility] Eosinophils Abs 0.1 0.0 - 0.4 x10(3)/[facility] Basophil % 0.4 % [facility] Baso Absolute 0.0 0.0 - 0.1 x10(3)/[facility] Immature Gran % 0.70 % [facility] Comment: Immature granulocytes(IG's)percentage and absolute count will include metamyelocytes, myelocytes, and promyelocytes. Blood smears from CBCs yielding IG's will be scanned manually for concordance. If this scan disagrees with the automated IG or if promyelocytes are noted, a manual differential will be performed. Immature Gran Absolute 0.06(H) 0.00 - 0.04 x10(3)/[facility] Blood specimen (specimen) 02/10/2019 5:46 AM EDT 02/10/2019 6:02 AM EDT Narrative Resulting Agency Comment Spec In Lab Danny Hicks MD HEMATOLOGY ORDERABLE S [facility] [place] [address] * (ABNORMAL) Hemogram (02/10/2019 5:46 AM EDT) White Blood Cell 9.0 4.0 - 9.5 x10(3)/[facility] Red Blood Cell 4.40(L) 4.58 - 5.54 x10(6)/[facility] Hemoglobin 13.5(L) 13.7 - 16.5 gm/dL [facility] Hematocrit 39.6(L) 40.5 - 48.5 % [facility] Mean Cell Volume 90.0 82.9 - 93.1 fL [facility] Mean Cell Hemoglobin 30.7 27.5 - 32.1 pg [facility] Mean Cell Hemoglobin Concentration 34.1 32.0 - 35.7 gm/dL [facility] Platelet 244 145 - 357 x10(3)/mc L [facility] RDW Standard Deviation 43.5 36.0 - 45.0 fL [facility] RDW coefficient of variation 13.2 11.4 - 13.8 % [facility] Mean Platelet Volume 9.7 7.6 - 12.9 fL [facility] NRBC% auto 0.0 % [facility] NRBC Absolute 0.000 0.000 - 0.000 x10(3)/mc L [facility] Blood specimen (specimen) 02/10/2019 5:46 AM EDT 02/10/2019 6:02 AM EDT Narrative Resulting Agency Comment Spec In Lab Danny Hicks MD HEMATOLOGY ORDERABLE S Performing Organization Address City/State/[facility] Co de Phone Number [facility] [place] [address] * (ABNORMAL) Basic Metabolic Panel (non-fasting) (02/10/2019 5:46 AM EDT) Glucose 136 65 - 199 mg/dL [facility] Comment:Diabetes: >=200 mg/d L plus symptoms Blood Urea Nitrogen 18 10 - 20 mg/dL [facility] Creatinine 1.31 0.80 - 1.50 mg/dL [facility] Sodium 133(L) 135 - 145 mmol/L [facility] Potassium 3.8 3.5 - 5.0 mmol/L [facility] Comment: Please note: ??Patients with WBC >100,000 may have falsely elevated Potassium levels. ??For accurate Potassium quantification in these patients send serum separator tube (gold top) for subsequent determinations. ??Contact the Clinical Chemistry Laboratory if there are any questions. Chloride 96(L) 98 - 107 mmol/L [facility] Carbon Dioxide 28 22 - 31 mmol/L [facility] Anion Gap 9 5 - 15 mmol/L [facility] Calcium 8.5 8.5 - 10.5 mg/dL [facility] Est Glomerular Filtration Rate 55(L) >=60 mL/min/1. 73 m?? [facility] Comment: The eGFR was calculated using the CKD-EPI equation. As with all creatinine based estimates of kidney function, eGFR values calculated with the CKD-EPI equation are not accurate in patients with acute kidney failure, extremes of body mass or the acutely ill. [email or web address]://[employer]/[facility]UEnkf eGFR 63 >=60 mL/min/1. 73 m?? [facility] Comment: The eGFR was calculated using the CKD-EPI equation. As with all creatinine based estimates of kidney function, eGFR values calculated with the CKD-EPI equation are not accurate in patients with acute kidney failure, extremes of body mass or the acutely ill. [email or web address]Enkf Blood specimen (specimen) 02/10/2019 5:46 AM EDT 02/10/2019 6:02 AM EDT Narrative Resulting Agency Comment Spec In Lab Danny Hicks MD CHEMISTRY ORDERABLES Performing Organization Address City/[facility]/ZIP Co de Phone Number [facility] [place] [address] * (ABNORMAL) POCT Glucose (02/09/2019 9:33 PM EDT) Glucose, POC 213(H) 65 - 199 mg/dL [facility] Comment: Supplemental ranges: <140 mg/dL before meals <180 mg/dL all other times of the day Blood specimen (specimen) 02/09/2019 9:33 PM EDT 02/09/2019 9:33 PM EDT Danny Hicks MD POINT OF CARE TEST O RDERABLES Performing Organization Address City/[facility]/ZIP Co de Phone Number [facility] [place] [address] * POCT Glucose (02/09/2019 8:19 PM EDT) Glucose, POC 176 65 - 199 mg/dL [facility] Comment: Supplemental ranges: <140 mg/dL before meals <180 mg/dL all other times of the day Blood specimen (specimen) 02/09/2019 8:19 PM EDT 02/09/2019 8:19 PM EDT Danny Hicks MD POINT OF CARE TEST O TED Performing Organization Address City/[facility]/ZIP Co de Phone Number [facility] [place] [address] * POCT Glucose (02/09/2019 5:33 PM EDT) Glucose, POC 121 65 - 199 mg/dL [facility] Comment: Supplemental ranges: <140 mg/dL before meals <180 mg/dL all other times of the day Blood specimen (specimen) 02/09/2019 5:33 PM EDT 02/09/2019 5:33 PM EDT Danny Hicks MD POINT OF CARE TEST O TED Performing Organization Address [facility]/ZIP Co de Phone Number [facility] [place] [address] * POCT Glucose (02/09/2019 11:30 AM EDT) Glucose, POC 172 65 - 199 mg/dL [facility] Comment: Supplemental ranges: <140 mg/dL before meals <180 mg/dL all other times of the day Blood specimen (specimen) 02/09/2019 11:30 AM EDT 02/09/2019 11:30 AM EDT Danny Hicks MD POINT OF CARE TEST O TED Performing Organization Address City/[facility]/ZIP Co de Phone Number [facility] [place] [address] * POCT Glucose (02/09/2019 8:32 AM EDT) Glucose, POC 149 65 - 199 mg/dL [facility] Comment: Supplemental ranges: <140 mg/dL before meals <180 mg/dL all other times of the day Blood specimen (specimen) 02/09/2019 8:32 AM EDT 02/09/2019 8:32 AM EDT Danny Hicks MD POINT OF CARE TEST O RDERABLES [facility] [place] [address] * (ABNORMAL) Differential, Automated (02/09/2019 3:55 AM EDT) Neutrophil % 74.3 % [facility] Neutrophil Absolute 6.75(H) 1.70 - 6.10 x10(3)/mc L [facility] Lymph % 9.4 % [facility] Lymphocytes Abs 0.8(L) 0.9 - 3.2 x10(3)/ L [facility] Monocyte % 15.3 % [facility] Monocyte Abs 1.4(H) 0.3 - 0.9 x10(3)/mc L [facility] Eos % 0.2 % [facility] Eosinophils Abs 0.0 0.0 - 0.4 x10(3)/ L [facility] Basophil % 0.2 % [facility] Baso Absolute 0.0 0.0 - 0.1 x10(3)/mc L [facility] Immature Gran % 0.60 % [facility] Comment: Immature granulocytes(IG's)percentage and absolute count will include metamyelocytes, myelocytes, and promyelocytes. Blood smears from CBCs yielding IG's will be scanned manually for concordance. If this scan disagrees with the automated IG or if promyelocytes are noted, a manual differential will be performed. Immature Gran Absolute 0.05(H) 0.00 - 0.04 x10(3)/mc L [facility] Blood specimen (specimen) 02/09/2019 3:55 AM EDT 02/09/2019 4:09 AM EDT Narrative Resulting Agency Comment Spec In Lab Danny Hicks MD HEMATOLOGY ORDERABLE S Performing Organization Address City/[facility]/ZIP Co de Phone Number [facility] [place] [address] * (ABNORMAL) Hemogram (02/09/2019 3:55 AM EDT) White Blood Cell 9.1 4.0 - 9.5 x10(3)/mc L [facility] Red Blood Cell 4.24(L) 4.58 - 5.54 x10(6)/mc L [facility] Hemoglobin 13.3(L) 13.7 - 16.5 gm/dL [facility] Hematocrit 38.3(L) 40.5 - 48.5 % [facility] Mean Cell Volume 90.3 82.9 - 93.1 [facility] Mean Cell Hemoglobin 31.4 27.5 - 32.1 pg [facility] Mean Cell Hemoglobin Concentration 34.7 32.0 - 35.7 gm/dL [facility] Platelet 220 145 - 357 x10(3)/mc L [facility] RDW Standard Deviation 43.8 36.0 - 45.0 [facility] RDW coefficient of variation 13.3 11.4 - 13.8 % [facility] Mean Platelet Volume 9.8 7.6 - 12.9 [facility] NRBC% auto 0.0 % [facility] NRBC Absolute 0.000 0.000 - 0.000 x10(3)/mc L [facility] Blood specimen (specimen) 02/09/2019 3:55 AM EDT 02/09/2019 4:09 AM EDT Narrative Resulting Agency Comment Spec In Lab Danny Hicks MD HEMATOLOGY ORDERABLE S [facility] [place] [address] * (ABNORMAL) Basic Metabolic Panel (non-fasting) (02/09/2019 3:55 AM EDT) Glucose 173 65 - 199 mg/dL [facility] Comment:Diabetes: >=200 mg/d L plus symptoms Blood Urea Nitrogen 24(H) 10 - 20 mg/dL [facility] Creatinine 1.58(H) 0.80 - 1.50 mg/dL [facility] Sodium 133(L) 135 - 145 mmol/L [facility] Potassium 3.6 3.5 - 5.0 mmol/L [facility] Comment: Please note: ??Patients with WBC >100,000 may have falsely elevated Potassium levels. ??For accurate Potassium quantification in these patients send serum separator tube (gold top) for subsequent determinations. ??Contact the Clinical Chemistry Laboratory if there are any questions. Chloride 96(L) 98 - 107 mmol/L [facility] Carbon Dioxide 28 22 - 31 mmol/L [facility] Anion Gap 9 5 - 15 mmol/L [facility] Calcium 8.5 8.5 - 10.5 mg/dL [facility] Est Glomerular Filtration Rate 44(L) >=60 mL/min/1. 73 m?? [facility] Comment: The eGFR was calculated using the CKD-EPI equation. As with all creatinine based estimates of kidney function, eGFR values calculated with the CKD-EPI equation are not accurate in patients with acute kidney failure, extremes of body mass or the acutely ill. http://[employer]/[facility]Enkf eGFR 51(L) >=60 mL/min/1. 73 m?? [facility] Comment: The eGFR was calculated using the CKD-EPI equation. As with all creatinine based estimates of kidney function, eGFR values calculated with the CKD-EPI equation are not accurate in patients with acute kidney failure, extremes of body mass or the acutely ill. [email or web address]/[facility]kf Blood specimen (specimen) 02/09/2019 3:55 AM EDT 02/09/2019 4:09 AM EDT Narrative Resulting Agency Comment Spec In Lab Danny Hicks MD CHEMISTRY ORDERABLES Performing Organization Address [facility] Co de Phone Number [facility] [place] [address] * POCT Glucose (02/08/2019 8:31 PM EDT) Glucose, POC 153 65 - 199 mg/dL [facility] Comment: Supplemental ranges: <140 mg/dL before meals <180 mg/dL all other times of the day Blood specimen (specimen) 02/08/2019 8:31 PM EDT 02/08/2019 8:31 PM EDT Danny Hicks MD POINT OF CARE TEST O RDERABLES Performing Organization Address [facility] Co de Phone Number [facility] [place] [address] * POCT Glucose (02/08/2019 4:04 PM EDT) Glucose, POC 198 65 - 199 mg/dL [facility] Comment: Supplemental ranges: <140 mg/dL before meals <180 mg/dL all other times of the day Blood specimen (specimen) 02/08/2019 4:04 PM EDT 02/08/2019 4:04 PM EDT Trena Stoddard MD POINT OF CARE TEST O RDERABLES Performing Organization Address [facility] Co de Phone Number [facility] [place] [address] * EKG 12 Lead (02/08/2019 3:18 PM EDT) Ventricular rate 71 BPM MUSE SYSTEM Atrial Rate 96 BPM MUSE SYSTEM P-R Interval 160 ms MUSE SYSTEM QRS Duration 108 ms MUSE SYSTEM Q-T Interval 402 ms MUSE SYSTEM QTC Calculated (Bezet) 436 ms MUSE SYSTEM Calculated P [place] 73 degrees MUSE SYSTEM Calculated R [place] -63 degrees MUSE SYSTEM Calculated T [place] 10 degrees MUSE SYSTEM INTERPRETATION Sinus rhythm with frequent Premature supraventricular complexes Left anterior fascicular block T wave abnormality, consider inferior ischemia Abnormal ECG When compared with ECG of 07-FEB-2019 06:40, No significant change was found Confirmed by MD Yoselin, Memo ([id number]) on 02/09/2019 1:03:56 PM MUSE SYSTEM 02/08/2019 3:18 PM EDT 02/09/2019 1:03 PM EDT Danny Hicks MD ECG ORDERABLES Performing Organization Address City/[facility]/ZIP Co de Phone Number MUSE SYSTEM * C. Difficile Screen (02/08/2019 1:31 PM EDT) C Diff Interp Negative Negative [facility] Comment: C. diff ??Negative Clostridium difficile is not present in the specimen. If patient is having diarrhea suspected to be from an infectious cause, then Contact Precautions are still required. Stool specimen (specimen) 02/08/2019 1:31 PM EDT 02/08/2019 1:55 PM EDT Narrative Resulting Agency Comment Spec In Lab Danny Hicks MD MICROBIOLOGY - GENER AL ORDERABLES Performing Organization Address [facility] Co de Phone Number [facility] [place] [address] * POCT Glucose (02/08/2019 12:07 PM EDT) Glucose, POC 197 65 - 199 mg/dL [facility] Comment: Supplemental ranges: <140 mg/dL before meals <180 mg/dL all other times of the day Blood specimen (specimen) 02/08/2019 12:07 PM EDT 02/08/2019 12:07 PM EDT Trena Stoddard MD POINT OF CARE TEST O RDERABLES Performing Organization Address [facility] Co de Phone Number [facility] [place] [address] * POCT Glucose (02/08/2019 8:19 AM EDT) Pathologist [facility] Glucose, POC 123 65 - 199 mg/dL [facility] Comment: Supplemental ranges: <140 mg/dL before meals <180 mg/dL all other times of the day Blood specimen (specimen) 02/08/2019 8:19 AM EDT 02/08/2019 8:19 AM EDT Trena Stoddard MD POINT OF CARE TEST O RDERABLES [facility] [place] [address] * (ABNORMAL) Differential, Automated (02/08/2019 12:20 AM EDT) [facility] Neutrophil % 84.1 % [facility] Neutrophil Absolute 10.28(H) 1.70 - 6.10 x10(3)/mc L [facility] Lymph % 4.1 % [facility] Lymphocytes Abs 0.5(L) 0.9 - 3.2 x10(3)/mc L [facility] Monocyte % 11.2 % [facility] Monocyte Abs 1.4(H) 0.3 - 0.9 x10(3)/mc L [facility] Eos % 0.0 % [facility] Eosinophils Abs 0.0 0.0 - 0.4 x10(3)/mc L [facility] Basophil % 0.1 % [facility] Baso Absolute 0.0 0.0 - 0.1 x10(3)/mc L [facility] Immature Gran % 0.50 % [facility] Comment: Immature granulocytes(IG's)percentage and absolute count will include metamyelocytes, myelocytes, and promyelocytes. Blood smears from CBCs yielding IG's will be scanned manually for concordance. If this scan disagrees with the automated IG or if promyelocytes are noted, a manual differential will be performed. Immature Gran Absolute 0.06(H) 0.00 - 0.04 x10(3)/mc L [facility] Blood specimen (specimen) 02/08/2019 12:20 AM EDT 02/08/2019 1:08 AM EDT Narrative Resulting Agency Comment Spec In Lab Danny Hicks MD HEMATOLOGY ORDERABLE S [facility] [place] [address] * (ABNORMAL) Hemogram (02/08/2019 12:20 AM EDT) White Blood Cell 12.2(H) 4.0 - 9.5 x10(3)/[facility] LABORATORY Red Blood Cell 4.25(L) 4.58 - 5.54 x10(6)/[facility] LABORATORY Hemoglobin 13.2(L) 13.7 - 16.5 gm/dL [facility] Hematocrit 38.0(L) 40.5 - 48.5 % [facility] Mean Cell Volume 89.4 82.9 - 93.1 fL [facility] Mean Cell Hemoglobin 31.1 27.5 - 32.1 pg [facility] Mean Cell Hemoglobin Concentration 34.7 32.0 - 35.7 gm/dL [facility] LABOR[facility] Platelet 200 145 - 357 x10(3)/[facility] LABORATORY RDW Standard Deviation 44.3 36.0 - 45.0 [facility] LABORATORY RDW coefficient of variation 13.7 11.4 - 13.8 % [facility] Mean Platelet Volume 9.8 7.6 - 12.9 [facility] LABORATORY NRBC% auto 0.0 % [facility] LABORATORY NRBC Absolute 0.000 0.000 - 0.000 x10(3)/[facility] LABORATORY Blood specimen (specimen) 02/08/2019 12:20 AM EDT 02/08/2019 1:08 AM EDT Narrative Resulting Agency Comment Spec In Lab Danny Hicks MD HEMATOLOGY ORDERABLE S [facility] [place] [address] * (ABNORMAL) Basic Metabolic Panel (non-fasting) (02/08/2019 12:20 AM EDT) Glucose 171 65 - 199 mg/dL [facility] Comment:Diabetes: >=200 mg/d L plus symptoms Blood Urea Nitrogen 28(H) 10 - 20 mg/dL [facility] Creatinine 1.70(H) 0.80 - 1.50 mg/dL [facility] Sodium 132(L) 135 - 145 mmol/L [facility] Potassium 3.3(L) 3.5 - 5.0 mmol/L [facility] Comment: result rechecked- Please note: ??Patients with WBC >100,000 may have falsely elevated Potassium levels. ??For accurate Potassium quantification in these patients send serum separator tube (gold top) for subsequent determinations. ??Contact the Clinical Chemistry Laboratory if there are any questions. Chloride 96(L) 98 - 107 mmol/L [facility] Carbon Dioxide 24 22 - 31 mmol/L [facility] Anion Gap 12 5 - 15 mmol/L [facility] Calcium 8.2(L) 8.5 - 10.5 mg/dL [facility] Est Glomerular Filtration Rate 40(L) >=60 mL/min/1. 73 m?? [facility] Comment: The eGFR was calculated using the CKD-EPI equation. As with all creatinine based estimates of kidney function, eGFR values calculated with the CKD-EPI equation are not accurate in patients with acute kidney failure, extremes of body mass or the acutely ill. [email or web address] eGFR 46(L) >=60 mL/min/1. 73 m?? [facility] Comment: The eGFR was calculated using the CKD-EPI equation. As with all creatinine based estimates of kidney function, eGFR values calculated with the CKD-EPI equation are not accurate in patients with acute kidney failure, extremes of body mass or the acutely ill. [email or web address] Blood specimen (specimen) 02/08/2019 12:20 AM EDT 02/08/2019 1:08 AM EDT Narrative Resulting Agency Comment Spec In Lab Danny Hicks MD CHEMISTRY ORDERABLES Performing Organization Address [facility] Co de Phone Number [facility] [place] [address] * POCT Glucose (02/07/2019 10:06 PM EDT) Glucose, POC 168 65 - 199 mg/dL [facility] Comment: Supplemental ranges: <140 mg/dL before meals <180 mg/dL all other times of the day Blood specimen (specimen) 02/07/2019 10:06 PM EDT 02/07/2019 10:06 PM EDT Trena Stoddard MD POINT OF CARE TEST O RDERABLES Performing Organization Address [facility] Co de Phone Number [facility] [place] [address] * CT Abdomen & Pelvis wo Contrast [...] the number below. ? Electronically signed by: ARIEL Warner [facility] ([phone]), at 02/08/2019 1:45 AM Narrative 02/08/2019 1:45 AM EDT EXAMINATION: CT [...] or ductal dilatation. Spleen: Normal. [place]: Normal. [place] left kidney: Atrophic with mild left hydronephrosis due to surgical clips at the left ureter for ureter ligation. Unchanged 4.4 cm simple cyst arising from the left lower pole. [place] right kidney: Atrophic. No hydronephrosis. Transplant kidney: [...] or ductal dilatation. Spleen: Normal. [place]als: Normal. [place] left kidney: Atrophic with mild left hydronephrosis due to surgicalclips at the left ureter for ureter ligation. Unchanged 4.4 cm simple cystarising from the left lower pole. [place] right kidney: Atrophic. No hydronephrosis. Transplant kidney: [...] contact the number below. Electronically signed by: Franca Francisco [facility]([phone]), at 02/08/2019 1:45 AM Danny Hicks MD IMG CT ORDERABLES * POCT Glucose (02/07/2019 7:36 PM EDT) Glucose, POC 171 65 - 199 mg/dL [facility] Comment: Supplemental ranges: <140 mg/dL before meals <180 mg/dL all other times of the day Blood specimen (specimen) 02/07/2019 7:36 PM EDT 02/07/2019 7:36 PM EDT Trena Stoddard MD POINT OF CARE TEST O RDERABLES Performing Organization Address [facility] Co de Phone Number [facility] [place] [address] * Vancomycin, trough (02/07/2019 6:28 PM EDT) Vancomycin, Trough 14.0 mg/L [facility] LABORATORY Comment: Therapeutic range for complicated infections [...] Hicks MD CHEMISTRY ORDERABLES Performing Organization Address [facility]/ZIP Co de Phone Number [facility] [place] [address] * POCT Glucose (02/07/2019 4:31 PM EDT) Pathologist [facility] Glucose, POC 116 65 - 199 mg/dL [facility] Comment: Supplemental ranges: <140 mg/dL before meals <180 mg/dL all other times of the day Blood specimen (specimen) 02/07/2019 4:31 PM EDT 02/07/2019 4:31 PM EDT Trena Stoddard MD POINT OF CARE TEST O RDERABLES [facility] [place] [address] * ECHO LMTD W/O CONTRAST W LMTD SPEC DOPP COLOR DOPP (02/07/2019 3:47 PM EDT) Pathologist [facility] EF 40-50 HEARTLAB SYSTEM Anatomical Region Laterality Modality Other 02/07/2019 Narrative 02/07/2019 4:26 PM EDT Procedure: ?Transthoracic Echocardiogram Patient: ?TUBCRAIG FERRARAUEL P ? (Age): 1950(68y) Med Rec#: ? [id number] ?Sex: ?M ? [place] [facility] [place]t / Wt: ??180(cm)/101(kg) Pt. Loc: ?ICU ? BSA: ?2.2 Study Date: ?? 02/07/2019 ?Pt. Type: Inpatient Tape: ? Referring: JACKY Reading: Ibrahima Celis ([id number]) Returned Goods Receiving Clerk: Quynh Calzada Diagnosis: *Enterococcus as the cause [...] E-wave Vmax ?1 ?m/sec ? MV deceleration yyrb356.5 ?msec ? MV A-wave Vmax ?0.3 ?m/sec [...] ? Mid-Inferior ?Hypokinetic ? Mid-Inferoseptal ?Hypokinetic ? [place]-Septal ? Hypokinetic ? [place]-Anterior ? Normal ? [place]-Lateral ?Hypokinetic ? [place]-Inferior ? Normal ? [place]-Tip ?Normal ? This report has been electronically signed by: Ibrahima Celis MD ? 02/07/2019 16:26:11 Images reviewed and interpretation verified [facility] Cardiac Ultrasound Laboratory Procedure Note Ibrahima Celis MD - 02/07/2019 Procedure: Transthoracic Echocardiogram Patient: MABLE DORANTES(Age): 1950(68y) Med Rec#: [id number] Sex: M [place] [facility] [place]t / Wt: 180(cm)/101(kg) Pt. Loc: ICU BSA: 2.2 Study Date: 02/07/2019 Pt. Type: Inpatient Tape: Referring: JACKY Reading: Ibrahima Celis ([id number]) Returned Goods Receiving Clerk: Quynh Calzada Diagnosis: *Enterococcus as the cause [...] MV E-wave Vmax 1 m/sec MV deceleration lznd186.5 msec MV A-wave Vmax 0.3 m/sec MV [...] Normal Mid-Posterolateral Hypokinetic Mid-Inferior Hypokinetic Mid-Inferoseptal Hypokinetic [place]-Septal Hypokinetic [place]-Anterior Normal [place]-Lateral Hypokinetic [place]-Inferior Normal [place]-Tip Normal This report has been electronically signed by: Ibrahima Celis MD 02/07/2019 16:26:11 Images reviewed and interpretation verified [facility] Cardiac Ultrasound Laboratory Danny Hicks MD ECHO [...] contact the number below. Electronically signed by: Preeti Holloway [facility] ([phone]), at 02/07/2019 2:41 PM ? Preeti Holloway, Staff Physician Electronically Signed Final Report ?? 02/07/2019 02:48 pm Narrative 02/07/2019 2:48 PM EDT Transplant ?(Signed Final 02/07/2019 02:48 pm) PATIENT INFO: ID #: ? [id number] ? : [birth year] (68 yrs) Name: ? ETHEL BOLDEN ? Visit Date:02/07/2019 02:19 pm PERFORMED BY: Performed By: ? Karly Castillo RDMS Attending: ?Jewel GERBER, Preeti Sanford Referred By: ?TRENA STODDARD Location: ? [place] SERVICE(S) PROVIDED: ??URTPL - Renal Transplant - Left - [id number] ?[id number] INDICATIONS: ??pt with hx of renal transplant [...] Final 02/07/2019 02:48pm) PATIENT INFO: ID #: [id number] : [birth year] (68 yrs) Name: ETHEL BOLDEN Visit Date:02/07/2019 02:19 pm PERFORMED BY: Performed By: Karly Castillo RDMS Attending: Preeti Holloway MD Referred By: TRENA STODDARD Location: [place] SERVICE(S) PROVIDED: URTPL - Renal Transplant - Left - [id number] INDICATIONS: pt with hx of renal transplant [...] contact the number below. Electronically signed by: Preeti Holloway [facility] ([phone]), at 02/07/2019 2:41 PM Preeti Holloway, Staff Physician Electronically Signed Final Report 02/07/2019 02:48 pm Trena Stoddard MD IMG US GEN ORDERABLE S * Blood culture (02/07/2019 12:55 PM EDT) Blood Culture No growth at 5 days. [facility] Blood specimen (specimen) STRUCTURE OF RIGHT FOOT / Unknown 02/07/2019 12:55 PM EDT 02/07/2019 1:57 PM EDT Narrative Resulting Agency Comment Spec In Lab Danny Hicks MD MICROBIOLOGY - BLOOD ORDERABLES [facility] [place] [address] * POCT Glucose (02/07/2019 12:13 PM EDT) Glucose, POC 151 65 - 199 mg/dL [facility] Comment: Supplemental ranges: <140 mg/dL before meals <180 mg/dL all other times of the day Blood specimen (specimen) 02/07/2019 12:13 PM EDT 02/07/2019 12:13 PM EDT Trena Stoddard MD POINT OF CARE TEST O RDERABLES [facility] [place] [address] * (ABNORMAL) Differential, Automated (02/07/2019 10:30 AM EDT) Pathologist [facility] Neutrophil % 87.2 % [facility] LABORATORY Neutrophil Absolute 12.33(H) 1.70 - 6.10 x10(3)/mc L [facility] Lymph % 3.3 % [facility] LABORAT[facility] Lymphocytes Abs 0.5(L) 0.9 - 3.2 x10(3)/mc L [facility]OR[facility] Monocyte % 8.9 % [facility]ORAT[facility] Monocyte Abs 1.3(H) 0.3 - 0.9 x10(3)/mc L [facility] Eos % 0.0 % [facility]OR[facility] Eosinophils Abs 0.0 0.0 - 0.4 x10(3)/mc L [facility] Basophil % 0.2 % [facility] Baso Absolute 0.0 0.0 - 0.1 x10(3)/mc L [facility] Immature Gran % 0.40 % [facility] Comment: Immature granulocytes(IG's)percentage and absolute count will include metamyelocytes, myelocytes, and promyelocytes. Blood smears from CBCs yielding IG's will be scanned manually for concordance. If this scan disagrees with the automated IG or if promyelocytes are noted, a manual differential will be performed. Immature Gran Absolute 0.06(H) 0.00 - 0.04 x10(3)/ L [facility] Blood specimen (specimen) 02/07/2019 10:30 AM EDT 02/07/2019 10:40 AM EDT Narrative Resulting Agency Comment Spec In Lab Danny Hicks MD HEMATOLOGY ORDERABLE S [facility] [place] [address] * (ABNORMAL) Hemogram (02/07/2019 10:30 AM EDT) White Blood Cell 14.2(H) 4.0 - 9.5 x10(3)/[facility] LABORATORY Red Blood Cell 4.76 4.58 - 5.54 x10(6)/[facility] LABORATORY Hemoglobin 14.6 13.7 - 16.5 gm/dL [facility] Hematocrit 42.7 40.5 - 48.5 % [facility] Mean Cell Volume 89.7 82.9 - 93.1 fL [facility] Mean Cell Hemoglobin 30.7 27.5 - 32.1 pg [facility] Mean Cell Hemoglobin Concentration 34.2 32.0 - 35.7 gm/dL [facility] Platelet 245 145 - 357 x10(3)/[facility] LABORATORY RDW Standard Deviation 44.1 36.0 - 45.0 [facility] LABORATORY RDW coefficient of variation 13.4 11.4 - 13.8 % [facility] Mean Platelet Volume 9.2 7.6 - 12.9 [facility] LABORATORY NRBC% auto 0.0 % [facility] LABOR[facility] NRBC Absolute 0.000 0.000 - 0.000 x10(3)/[facility] LABORATORY Blood specimen (specimen) 02/07/2019 10:30 AM EDT 02/07/2019 10:40 AM EDT Narrative Resulting Agency Comment Spec In Lab Danny Hicks MD HEMATOLOGY ORDERABLE S Performing Organization Address City/[facility]/ZIP Co de Phone Number [facility] [place] [address] * IgG (02/07/2019 10:30 AM EDT) Immunoglobulin G 884 700 - 1,600 mg/dL [facility] Comment: Pediatric Reference Intervals obtained from the Caliper Reference Interval project. http://www.Effektif.ca/caliperproject/index.html Blood specimen (specimen) 02/07/2019 10:30 AM EDT 02/07/2019 10:40 AM EDT Narrative Resulting Agency Comment Spec In Lab Danny Hicks MD CHEMISTRY ORDERABLES Performing Organization Address [facility] Co de Phone Number [facility] [place] [address] * (ABNORMAL) CD19 (02/07/2019 10:30 AM EDT) Pathologist [facility] CD19% 13 6 - 23 % [facility] LABORAT[facility] CD19 ABS 62(L) 99 - 473 /[facility] LABORATORY Comment: This assay is a dual platform determination. ??The PERCENTAGE of lymphocytes bearing the CD19 is determined using flow cytometry immunophenotyping. ??The ABSOULTE COUNT of [id number] is determined by multiplying the percentages by [...] White Blood Cell 14.2(H) 4.0 - 9.5 x10(3)/[facility] LABORATORY Lymph % 3.3 % [facility] Lymphocytes Abs 0.5(L) 0.9 - 3.2 x10(3)/[facility] LABORATORY Blood specimen (specimen) 02/07/2019 10:30 AM EDT 02/07/2019 10:40 AM EDT Narrative Resulting Agency Comment Spec In Lab Danny Hicks MD HEMATOLOGY ORDERABLE S [facility] [place] [address] * (ABNORMAL) CD4+8 (02/07/2019 10:30 AM EDT) CD3% 77 55 - 82 % [facility] CD3 ABS 361(L) 731 - 2,438 /[facility] LABORATORY CD4% 53 35 - 61 % [facility] CD4 ABS 250(L) 503 - 1,736 /[facility] LABORATORY CD8% 23 12 - 38 % [facility] CD8 ABS 108(L) 162 - 1,026 /[facility] LABORATORY Comment: This assay is a [...] from the literature [Journal of Pediatrics 1997 Mar;130(3):388-393]. CD4:8 Ratio 2.31 1.09 - 4.26 ratio [facility] White Blood Cell 14.2(H) 4.0 - 9.5 x10(3)/[facility] LABORATORY Lymph % 3.3 % [facility] Lymphocytes Abs 0.5(L) 0.9 - 3.2 x10(3)/[facility] LABORATORY Blood specimen (specimen) 02/07/2019 10:30 AM EDT 02/07/2019 10:40 AM EDT Narrative Resulting Agency Comment Spec In Lab Danny Hicks MD HEMATOLOGY ORDERABLE S Performing Organization Address City/[facility]/ZIP Co de Phone Number [facility] [place] [address] * POCT Glucose (02/07/2019 8:01 AM EDT) Glucose, POC 126 65 - 199 mg/dL [facility] Comment: Supplemental ranges: <140 mg/dL before meals <180 mg/dL all other times of the day Blood specimen (specimen) 02/07/2019 8:01 AM EDT 02/07/2019 8:01 AM EDT Trena Stoddard MD POINT OF CARE TEST O RDERABLES Performing Organization Address [facility] Co de Phone Number [facility] [place] [address] * EKG 12 Lead (02/07/2019 6:40 AM EDT) [facility] Ventricular rate 62 BPM MUSE SYSTEM Atrial Rate 52 BPM MUSE SYSTEM P-R Interval 184 ms MUSE SYSTEM QRS Duration 106 ms MUSE SYSTEM Q-T Interval 452 ms MUSE SYSTEM QTC Calculated (Bezet) 458 ms MUSE SYSTEM Calculated P [place] 52 degrees MUSE SYSTEM Calculated R [place] -76 degrees MUSE SYSTEM Calculated T [place] -27 degrees MUSE SYSTEM INTERPRETATION Sinus bradycardia with Premature supraventricular complexes Left anterior fascicular block T wave abnormality, consider inferior ischemia Abnormal ECG When compared with ECG of 06-FEB-2019 23:20, Premature ventricular complexes are no longer Present Confirmed by MD Yoselin, [facility] [place] ([id number]) on 02/08/2019 9:38:37 AM MUSE SYSTEM 02/07/2019 6:40 AM EDT 02/08/2019 9:38 AM EDT Trena Stoddard MD ECG ORDERABLES Performing Organization Address City/[facility] Co de Phone Number MUSE SYSTEM * Tacrolimus level (02/07/2019 6:30 AM EDT) Tacrolimus 4.4 ng/mL [facility] Comment: Trough therapeutic: ??5-15 ng/mL Performed by ultra-performance liquid chromatography tandem mass spectrometry (UPLCMS/MS). This test was developed and its performance characteristics determined by [facility]. It has not been cleared or [...] Stoddard MD CHEMISTRY ORDERABLES Performing Organization Address [facility] Co de Phone Number [facility] [place] [address] * POCT Glucose (02/07/2019 3:27 AM EDT) Pathologist [facility] Glucose, POC 141 65 - 199 mg/dL [facility] Comment: Supplemental ranges: <140 mg/dL before meals <180 mg/dL all other times of the day Blood specimen (specimen) 02/07/2019 3:27 AM EDT 02/07/2019 3:27 AM EDT Alessandro Limon DO POINT OF CARE TEST O RDERABLES Performing Organization Address [facility] Co de Phone Number [facility] [place] [address] * Scan, Peripheral Blood (02/07/2019 1:50 AM EDT) Plat estimate Normal [facility] RBC Morphology Abnormal [facility] Ovalocytes 1-5 /HPF [facility] Evan Cells 1-5 /HPF [facility] Blood specimen (specimen) 02/07/2019 1:50 AM EDT 02/07/2019 1:57 AM EDT Narrative Resulting Agency Comment Spec In Lab Trena Stoddard MD HEMATOLOGY ORDERABLE S Performing Organization Address [facility]/State/ZIP Co de Phone Number [facility] [place] [address] * (ABNORMAL) Differential, Automated (02/07/2019 1:50 AM EDT) Neutrophil % 84.1 % [facility] Neutrophil Absolute 16.55(H) 1.70 - 6.10 x10(3)/ L [facility] Lymph % 5.2 % [facility] Lymphocytes Abs 1.0 0.9 - 3.2 x10(3)/ L [facility] Monocyte % 10.0 % [facility] Monocyte Abs 2.0(H) 0.3 - 0.9 x10(3)/[facility] LABORATORY Eos % 0.0 % [facility] Eosinophils Abs 0.0 0.0 - 0.4 x10(3)/[facility] LABORATORY Basophil % 0.2 % [facility] Baso Absolute 0.0 0.0 - 0.1 x10(3)/[facility] LABORATORY Immature Gran % 0.50 % [facility] Comment: Immature granulocytes(IG's)percentage and absolute count will include metamyelocytes, myelocytes, and promyelocytes. Blood smears from CBCs yielding IG's will be scanned manually for concordance. If this scan disagrees with the automated IG or if promyelocytes are noted, a manual differential will be performed. Immature Gran Absolute 0.10(H) 0.00 - 0.04 x10(3)/ L [facility] Blood specimen (specimen) 02/07/2019 1:50 AM EDT 02/07/2019 1:57 AM EDT Narrative Resulting Agency Comment Spec In Lab Trena Stoddard MD HEMATOLOGY ORDERABLE S [facility] [place] [address] * (ABNORMAL) Hemogram (02/07/2019 1:50 AM EDT) White Blood Cell 19.7(H) 4.0 - 9.5 x10(3)/ L [facility] Red Blood Cell 5.08 4.58 - 5.54 x10(6)/mc L [facility] Hemoglobin 15.8 13.7 - 16.5 gm/dL [facility] Hematocrit 46.6 40.5 - 48.5 % [facility] Mean Cell Volume 91.7 82.9 - 93.1 fL [facility] Mean Cell Hemoglobin 31.1 27.5 - 32.1 pg [facility] Mean Cell Hemoglobin Concentration 33.9 32.0 - 35.7 gm/dL [facility] Platelet 260 145 - 357 x10(3)/[facility] LABORATORY RDW Standard Deviation 45.6(H) 36.0 - 45.0 [facility] LABORATORY RDW coefficient of variation 13.6 11.4 - 13.8 % [facility] Mean Platelet Volume 9.1 7.6 - 12.9 [facility] LABORATORY NRBC% auto 0.0 % [facility] NRBC Absolute 0.000 0.000 - 0.000 x10(3)/[facility] LABORATORY Blood specimen (specimen) 02/07/2019 1:50 AM EDT 02/07/2019 1:57 AM EDT Narrative Resulting Agency Comment Spec In Lab Trena Stoddard MD HEMATOLOGY ORDERABLE S [facility] [place] [address] * (ABNORMAL) Troponin (02/07/2019 1:50 AM EDT) Pathologist [facility] Troponin-T 0.05(H) 0.00 - 0.00 ng/mL [facility] Comment: The 99th percentile for Troponin T is less than 0.01 ng/mL, any detectable cTnT concentration using this assay should be considered elevated. According to the third universal definition of myocardial infarction the following criteria with a clinical presentation consistent with acute myocardial ischemia meets the diagnosis for a myocardial infarction ([place]). Detection of a rise and/or fall of cTnT, with at least one value greater than the 99th percentile (> or = 0.01) and with at least one of the following ?? Symptoms of ischemia ?? New or presumed new significant CA-iiotxnn-Y wave (ST-T) changes or new left bundle [...] additional sample may be indicated. Reference: Third [place] Definition of Myocardial Infarction. Journal of the [place] College [employer] 2012;60:1581-98 Blood specimen (specimen) 02/07/2019 1:50 AM EDT 02/07/2019 1:57 AM EDT Narrative Resulting Agency Comment Spec In Lab Trena Stoddard MD CHEMISTRY ORDERABLES Performing Organization Address [facility] Co de Phone Number [facility] [place] [address] * (ABNORMAL) Magnesium (02/07/2019 1:50 AM EDT) Magnesium 0.59(L) 0.69 - 1.07 mmol/L [facility] Blood specimen (specimen) 02/07/2019 1:50 AM EDT 02/07/2019 1:57 AM EDT Narrative Resulting Agency Comment Spec In Lab Trena Stoddard MD CHEMISTRY ORDERABLES Performing Organization Address [facility] Co de Phone Number [facility] [place] [address] * (ABNORMAL) Basic Metabolic Panel (non-fasting) (02/07/2019 1:50 AM EDT) Glucose 145 65 - 199 mg/dL [facility] Comment:Diabetes: >=200 mg/d L plus symptoms Blood Urea Nitrogen 26(H) 10 - 20 mg/dL [facility] Creatinine 1.82(H) 0.80 - 1.50 mg/dL [facility] Sodium 133(L) 135 - 145 mmol/L [facility] Potassium 4.7 3.5 - 5.0 mmol/L [facility] Comment: result rechecked- Please note: ??Patients with WBC >100,000 may have falsely elevated Potassium levels. ??For accurate Potassium quantification in these patients send serum separator tube (gold top) for subsequent determinations. ??Contact the Clinical Chemistry Laboratory if there are any questions. Chloride 94(L) 98 - 107 mmol/L [facility] Carbon Dioxide 25 22 - 31 mmol/L [facility] Anion Gap 14 5 - 15 mmol/L [facility] Calcium 9.0 8.5 - 10.5 mg/dL [facility] Est Glomerular Filtration Rate 37(L) >=60 mL/min/1. 73 m?? [facility] Comment: The eGFR was calculated using the CKD-EPI equation. As with all creatinine based estimates of kidney function, eGFR values calculated with the CKD-EPI equation are not accurate in patients with acute kidney failure, extremes of body mass or the acutely ill. http://[employer]/[facility]Enkf eGFR 43(L) >=60 mL/min/1. 73 m?? [facility] Comment: The eGFR was calculated using the CKD-EPI equation. As with all creatinine based estimates of kidney function, eGFR values calculated with the CKD-EPI equation are not accurate in patients with acute kidney failure, extremes of body mass or the acutely ill. [email or web address] Blood specimen (specimen) 02/07/2019 1:50 AM EDT 02/07/2019 1:57 AM EDT Narrative Resulting Agency Comment Spec In Lab Trena Stoddard MD CHEMISTRY ORDERABLES [facility] [place] [address] * Smear Review Report (02/07/2019 1:50 AM EDT) Smear Review Report [id number] ? Location: ICUS; IC06; A The signing pathologist has (i) examined the relevant preparation(s) for the specimen(s) and (ii) rendered or confirmed the diagnosis(es). . ? Smear Review DIAGNOSIS PERIPHERAL BLOOD, SMEAR: Absolute neutrophilia and monocytosis (see discussion) Electronically signed by: ??Shin Murray MD Verified: ??02/07/2019 ?Hematopathologist Performed at: ??-[facility] Dept. [place], [place], [place] DISCUSSION The leukocytosis and morphologic findings [...] Ledipasvir-sofosbuvir, DM, HTN, and kidney transplant (09/16/2015). [facility] 02/07/2019 1:50 AM EDT Trena Stoddard MD HEMATOLOGY ORDERABLE S Performing Organization Address [facility]/ZIP Co de Phone Number [facility] [place] [address] * Urea nitrogen, urine, random (02/07/2019 12:56 AM EDT) Urea Nitrogen, Urine 831 mg/dL [facility] Urine specimen (specimen) Urine / Unknown 02/07/2019 12:56 AM EDT 02/07/2019 6:10 AM EDT Narrative Resulting Agency Comment Spec In Lab Trena Stoddard MD URINE ORDERABLES Performing Organization Address [facility] Co de Phone Number [facility] [place] [address] * Legionella Urinary Antigen (02/07/2019 12:56 AM EDT) Legionella Urinary Antigen Negative Negative [facility] Comment: A negative Legionella Urinary [...] - GENER AL ORDERABLES Performing Organization Address [facility]/ZIP Co de Phone Number [facility] [place] [address] * (ABNORMAL) Urine culture (02/07/2019 12:55 AM EDT) Urine Culture 1,000-9,000 cfu/ml Enterococcus faecalis(A) [facility] Organism Enterococcus faecalis(A) [facility] Urine specimen obtained via straight catheter [...] METHOD Sensitive Trena Stoddard MD MICROBIOLOGY - [facility] AL ORDERABLES Performing Organization Address [facility]/ZIP Co de Phone Number [facility] [place] [address] * (ABNORMAL) Urinalysis Microscopic Exam (02/07/2019 12:55 AM EDT) RBC, Urine 9(H) 0 - 3 /HPF [facility] WBC, Urine 22(H) 0 - 3 /HPF [facility] Bacteria, Urine Rare(A) None /HPF [facility] Granular Casts, Urine 2(H) <=0 /LPF [facility] Urine specimen obtained via straight catheter (specimen) 02/07/2019 12:55 AM EDT 02/07/2019 1:31 AM EDT Narrative Resulting Agency Comment Spec In Lab Trena Stoddard MD URINE ORDERABLES Performing Organization Address City/[facility]/ZIP Co de Phone Number [facility] [place] [address] * Creatinine, urine, random (02/07/2019 12:55 AM EDT) Creatinine, Urine 174 mg/dL [facility] Urine specimen (specimen) 02/07/2019 12:55 AM EDT 02/07/2019 1:31 AM EDT Narrative Resulting Agency Comment Spec In Lab Trena Stoddard MD URINE ORDERABLES Performing Organization Address [facility] Co de Phone Number [facility] [place] [address] * Electrolytes, urine, random (02/07/2019 12:55 AM EDT) Sodium, Urine 28 mmol/L [facility] Potassium, Urine 78 mmol/L [facility] Chloride, Urine 33 mmol/L [facility] Urine specimen (specimen) 02/07/2019 12:55 AM EDT 02/07/2019 1:31 AM EDT Narrative Resulting Agency Comment Spec In Lab Trena Stoddard MD URINE ORDERABLES Performing Organization Address [facility] Co de Phone Number [facility] [place] [address] * (ABNORMAL) Urinalysis with reflex Culture (02/07/2019 12:55 AM EDT) Glucose, Urine Dipstick Negative Negative mg/dL [facility] Protein, Urine Dipstick 100(A) Negative mg/dL [facility] Bilirubin, [...] HOSPITAL LABORATORY Leukocytes, Urine Dipstick Negative Negative [facility] Appearance, Urine Dipstick Clear Clear [facility] Specific [place] Urine Automated 1.023 1.002 - 1.030 [facility] Color, Urine Dipstick Yellow Yellow [facility] Reflex to Culture Yes [facility] Urine specimen obtained via straight catheter (specimen) 02/07/2019 12:55 AM EDT 02/07/2019 1:31 AM EDT Narrative Resulting Agency Comment Spec In Lab Trena Stoddard MD URINE ORDERABLES Performing Organization Address [facility] Co de Phone Number [facility] [place] [address] * POCT Glucose (02/07/2019 12:27 AM EDT) Glucose, POC 183 65 - 199 mg/dL [facility] Comment: Supplemental ranges: <140 mg/dL before meals <180 mg/dL all other times of the day Blood specimen (specimen) 02/07/2019 12:27 AM EDT 02/07/2019 12:27 AM EDT Alessandro Limon DO POINT OF CARE TEST O RDERABLES Performing Organization Address [facility] Co de Phone Number [facility] [place] [address] * XR Chest One View (02/06/2019 11:52 PM EDT) Anatomical Region Laterality Modality Chest N/A Digital Radiogra phy Impressions 02/07/2019 12:02 AM EDT Cardiomegaly with pulmonary edema Thank you for letting us participate in the care of this patient. For questions regarding this report, please contact the number below. ? Electronically signed by: ARIEL Warner [facility] ([phone]), at 02/07/2019 12:02 AM Narrative 02/07/2019 12:02 AM EDT EXAMINATION: XR [...] contact the number below. Electronically signed by: ARIEL Warner [facility]([phone]), at 02/07/2019 12:02 AM Trena Stoddard MD IMG DX ORDERABLES * EKG 12 Lead (02/06/2019 11:20 PM EDT) Ventricular rate 63 BPM MUSE SYSTEM Atrial Rate 90 BPM MUSE SYSTEM P-R Interval 192 ms MUSE SYSTEM QRS Duration 106 ms MUSE SYSTEM Q-T Interval 484 ms MUSE SYSTEM QTC Calculated (Bezet) 495 ms MUSE SYSTEM Calculated R [place] -55 degrees MUSE SYSTEM Calculated T [place] -61 degrees MUSE SYSTEM INTERPRETATION Sinus rhythm with Premature atrial complexes Premature ventricular complexes Left anterior fascicular block Nonspecific T wave abnormality Prolonged QT Abnormal ECG When compared with ECG of 31-SERG-2019 19:26, T wave inversion now evident in Lateral leads Confirmed by MD Yoselin, Memo ([id number]) on 02/07/2019 10:22:06 AM MUSE SYSTEM 02/06/2019 11:2 0 PM EDT 02/07/2019 10:22 AM EDT Trena Stoddard MD ECG ORDERABLES MUSE SYSTEM * (ABNORMAL) Troponin (02/06/2019 11:10 PM EDT) Troponin-T 0.05(H) 0.00 - 0.00 ng/mL [facility] Comment: The 99th percentile for Troponin T is less than 0.01 ng/mL, any detectable cTnT concentration using this assay should be considered elevated. According to the third universal definition of myocardial infarction the following criteria with a clinical presentation consistent with acute myocardial ischemia meets the diagnosis for a myocardial infarction ([place]). Detection of a rise and/or fall of cTnT, with at least one value greater than the 99th percentile (> or = 0.01) and with at least one of the following ?? Symptoms of ischemia ?? New or presumed new significant BS-bjfnfrf-T wave (ST-T) changes or new left bundle [...] additional sample may be indicated. Reference: Third [place] Definition of Myocardial Infarction. Journal of the [place] [employer] 2012;60:1581-98 Blood specimen (specimen) 02/06/2019 11:10 PM EDT 02/06/2019 11:21 PM EDT Narrative Resulting Agency Comment Spec In Lab Trena Stoddard MD CHEMISTRY [place] [address] * (ABNORMAL) Differential, Automated (02/06/2019 11:10 PM EDT) Neutrophil % 86.6 % [facility] Neutrophil Absolute 12.13(H) 1.70 - 6.10 x10(3)/mc L [facility] Lymph % 3.9 % [facility] Lymphocytes Abs 0.5(L) 0.9 - 3.2 x10(3)/mc L [facility] Monocyte % 8.9 % [facility] Monocyte Abs 1.2(H) 0.3 - 0.9 x10(3)/mc L [facility] Eos % 0.0 % [facility] Eosinophils Abs 0.0 0.0 - 0.4 x10(3)/[facility] Basophil % 0.2 % [facility] Baso Absolute 0.0 0.0 - 0.1 x10(3)/mc L [facility] Immature Gran % 0.40 % [facility] Comment: Immature granulocytes(IG's)percentage and absolute count will include metamyelocytes, myelocytes, and promyelocytes. Blood smears from CBCs yielding IG's will be scanned manually for concordance. If this scan disagrees with the automated IG or if promyelocytes are noted, a manual differential will be performed. Immature Gran Absolute 0.06(H) 0.00 - 0.04 x10(3)/mc L [facility] Blood specimen (specimen) 02/06/2019 11:10 PM EDT 02/06/2019 11:21 PM EDT Narrative Resulting Agency Comment Spec In Lab Trena Stoddard MD HEMATOLOGY ORDERABLE S [facility] [place] [address] * (ABNORMAL) Hemogram (02/06/2019 11:10 PM EDT) White Blood Cell 14.0(H) 4.0 - 9.5 x10(3)/ L [facility] Red Blood Cell 4.51(L) 4.58 - 5.54 x10(6)/mc L [facility] Hemoglobin 13.9 13.7 - 16.5 gm/dL [facility] Hematocrit 40.5 40.5 - 48.5 % [facility] Mean Cell Volume 89.8 82.9 - 93.1 fL [facility] Mean Cell Hemoglobin 30.8 27.5 - 32.1 pg [facility] Mean Cell Hemoglobin Concentration 34.3 32.0 - 35.7 gm/dL [facility] Platelet 238 145 - 357 x10(3)/[facility] RDW Standard Deviation 44.2 36.0 - 45.0 [facility] RDW coefficient of variation 13.6 11.4 - 13.8 % [facility] Mean Platelet Volume 9.4 7.6 - 12.9 [facility] NRBC% auto 0.0 % [facility] NRBC Absolute 0.000 0.000 - 0.000 x10(3)/ L [facility] Blood specimen (specimen) 02/06/2019 11:10 PM EDT 02/06/2019 11:21 PM EDT Narrative Resulting Agency Comment Spec In Lab Trena Stoddard MD HEMATOLOGY ORDERABLE S [facility] [place] [address] * Lactate, whole blood, send to lab (Leb/CGP) (02/06/2019 11:10 PM EDT) Pathologist [facility] Lactate WB 1.8 0.5 - 2.2 mmol/L [facility] Blood specimen (specimen) 02/06/2019 11:10 PM EDT 02/06/2019 11:18 PM EDT Narrative Resulting Agency Comment Spec In Lab Trena Stoddard MD CHEMISTRY ORDERABLES Performing Organization Address [facility] Co de Phone Number [facility] [place] [address] * Blood culture (02/06/2019 11:10 PM EDT) Blood Culture No growth at 5 days. [facility] Blood specimen (specimen) STRUCTURE OF RIGHT UPPER LIMB / Unknown 02/06/2019 11:10 PM EDT 02/07/2019 12:08 AM EDT Narrative Resulting Agency Comment Spec In Lab Trena Stoddard MD MICROBIOLOGY - BLOOD ORDERABLES Performing Organization Address [facility] Co de Phone Number [facility] [place] [address] * (ABNORMAL) Prothrombin Time (02/06/2019 11:10 PM EDT) Prothrombin Time 23.5(H) 9.4 - 12.5 sec [facility] International Normalization Ratio 2.0 [facility] Comment: An INR <2.0 [...] HEMATOLOGY ORDERABLE S Performing Organization Address [facility] Co de Phone Number [facility] [place] [address] * (ABNORMAL) Hepatic Function Panel (02/06/2019 11:10 PM EDT) Protein, Total 6.6 6.1 - 8.0 gm/dL [facility] Albumin 3.3 3.2 - 5.2 gm/dL [facility] Aspartate Aminotransferase 17 0 - 39 unit/L [facility] Alanine Aminotransferase 15 0 - 55 unit/L [facility] Alkaline Phosphatase 47 40 - 130 unit/L [facility] Bilirubin, Total 2.2(H) 0.2 - 1.3 mg/dL [facility] Bilirubin, Direct 0.3 0.0 - 0.3 mg/dL [facility] Blood specimen (specimen) 02/06/2019 11:10 PM EDT 02/06/2019 11:21 PM EDT Narrative Resulting Agency Comment Spec In Lab Trena Stoddard MD CHEMISTRY ORDERABLES Performing Organization Address [facility] Co de Phone Number [facility] [place] [address] * (ABNORMAL) Magnesium (02/06/2019 11:10 PM EDT) [facility] Magnesium 0.52(L) 0.69 - 1.07 mmol/L [facility] Blood specimen (specimen) 02/06/2019 11:10 PM EDT 02/06/2019 11:21 PM EDT Narrative Resulting Agency Comment Spec In Lab Trena Stoddard MD CHEMISTRY ORDERABLES [facility] [place] [address] * (ABNORMAL) Basic Metabolic Panel (non-fasting) (02/06/2019 11:10 PM EDT) [facility] Glucose 190 65 - 199 mg/dL [facility] Comment:Diabetes: >=200 mg/d L plus symptoms Blood Urea Nitrogen 26(H) 10 - 20 mg/dL [facility] Creatinine 1.68(H) 0.80 - 1.50 mg/dL [facility] Sodium 135 135 - 145 mmol/L [facility] Potassium 3.6 3.5 - 5.0 mmol/L [facility] Comment: Please note: ??Patients with WBC >100,000 may have falsely elevated Potassium levels. ??For accurate Potassium quantification in these patients send serum separator tube (gold top) for subsequent determinations. ??Contact the Clinical Chemistry Laboratory if there are any questions. Chloride 98 98 - 107 mmol/L [facility] Carbon Dioxide 24 22 - 31 mmol/L [facility] Anion Gap 13 5 - 15 mmol/L [facility] Calcium 8.3(L) 8.5 - 10.5 mg/dL [facility] Est Glomerular Filtration Rate 41(L) >=60 mL/min/1. 73 m?? [facility] Comment: The eGFR was calculated using the CKD-EPI equation. As with all creatinine based estimates of kidney function, eGFR values calculated with the CKD-EPI equation are not accurate in patients with acute kidney failure, extremes of body mass or the acutely ill. http://[employer]/[facility]Enkf eGFR 47(L) >=60 mL/min/1. 73 m?? [facility] Comment: The eGFR was calculated using the CKD-EPI equation. As with all creatinine based estimates of kidney function, eGFR values calculated with the CKD-EPI equation are not accurate in patients with acute kidney failure, extremes of body mass or the acutely ill. [email or web address] Blood specimen (specimen) 02/06/2019 11:10 PM EDT 02/06/2019 11:21 PM EDT Narrative Resulting Agency Comment Spec In Lab Trena Stoddard MD CHEMISTRY ORDERABLES [facility] [place] [address] * Blood culture (02/06/2019 11:00 PM EDT) Blood Culture No growth at 5 days. [facility] Blood specimen (specimen) STRUCTURE OF RIGHT HAND / Unknown 02/06/2019 11:00 PM EDT 02/07/2019 12:08 AM EDT Narrative Resulting Agency Comment Spec In Lab Trena Stoddard MD MICROBIOLOGY - BLOOD ORDERABLES [facility] [place] [address] documented in this encounter Visit Diagnoses Diagnosis [...] dose on Thu02/07/19 at 0900, Until Discontinued, [place] teeth, Routine Given 02/10/2019 9:09 PM EDT [...] Intravenous, EVERY 8 HOURS, First dose on 02/07/19 at 1630, Until Discontinued, Administer over 4 [...] 2 TIMES DAILY, First dose on Laura 02/10/19 at 1300, Until Discontinued, Dissolve tablets in [...] for scheduled level. Warning Vesicant/Irritant Medication , Routine, Indication for (Active or Suspected): Bacteremia/Sepsis New Bag 02/07/2019 10:04 PM EDT 1.25 [...] level. Please see MAR for scheduled level., Routine, Indication for (Active or Suspected): Pneumonia ([facility]) New Bag 02/07/2019 2:54 AM EDT 2 g 250 mL/hr documented in this encounter Active and [...] PE 0857 (Given - Provider: Arely Wang RN)214 (Given - Provider: Josefina English RN) 0855 (Given - Provider: Ethel Darling RN)210 (Given - Provider: Sohan Smith, JADEN) 0910 (Given - Provider: Ethel Darling [...] dose on Thu02/07/19 at 0900, Until Discontinued, [place] teeth, Routine 0857 (Given - Provider: Arely Wang RN)2143 (Given - Provider: Josefina English, JADEN) 0856 (Given - Provider: Ethel Darling RN)210 (Given - Provider: Sohan Smith RN) 0900 (Not Given - Provider: Ethel Darling RN - Reason: Patient/family refused) clopidogrel (PLAVIX) tablet 75 mg 75 mg, Oral, DAILY, First dose on Thu02/07/19 at 0900, Until Discontinued, Routine 0857 (Given - Provider: Arely Wang RN) 0855 (Given - Provider: Ethel Darling, JADEN) 0910 (Given - Provider: Ethel Darling, JADEN) furosemide (LASIX) injection 20 mg (COMPLETED) 20 mg, Intravenous, ONCE, 1 dose, On Thu02/09/19 at 1145 1211 (Given - Provider: Arely Wang RN) furosemide (LASIX) tablet 40 mg (COMPLETED) 40 mg, Oral, ONCE, 1 dose, On Laura 02/10/19 at 1000, Routine 1049 (Given - Provider: Ethel Darling RN) insulin lispro (HumaLOG) VIAL injection 1-4 [...] parameters not met)1118 (Given - Provider: Ethel Darling, JADEN)1654 (Given - Provider: Ethel Darling, JADEN)2109 (Given - Provider: Sohan Smith RN) 0730 (Not Given - Provider: Ethel Darling, JADEN - Reason: Order parameters not met)1130 (Given - Provider: Ethel Darling, JADEN) levothyroxine (SYNTHROID) tablet 137 mcg 137 mcg, Oral, DAILY, First dose on Thu02/07/19 at 0900, Until Discontinued, Routine 0857 (Given - Provider: Arely Wang RN) 0855 (Given - Provider: Ethel Darling RN) 0910 (Given - Provider: Ethel Darling RN) magnesium oxide (MAG-OX) tablet 400 mg (COMPLETED) [...] Arely Wang RN)1257 (Stopped - Provider: Arely Wang, JADEN) potassium chloride (K-DUR/KLOR-CON) extended release tablet 20 mEq (COMPLETED) 20 mEq, Oral, ONCE, 1 dose, On Thu02/09/19 at 1145, 20 mEq tablet may be dissolved in water for administration, Routine 1211 (Given - Provider: Arely Wang, JADEN) potassium phosphate (monobasic) (K-PHOS) tablet 1,000 mg 1,000 mg, Oral, 2 TIMES DAILY, First dose on Thu02/10/19 at 1300, Until Discontinued, Dissolve tablets in 6-8 oz of water; for best results, soak tablets in water for 2-5 minutes, then stir and give to patient., Routine 1233 (Given - Provider: Ethel Darling RN)2108 (Given - Provider: Sohan Smith RN) 09 (Given - Provider: Ethel Darling RN) sodium chloride 0.9 % (flush) flush 5 mL 5 mL, Intravenous, 2 TIMES DAILY, First dose on Thu02/06/19 at 2315, Until Discontinued, Routine 0858 (Given - Provider: Arely Wang RN)2151 (Given - Provider: Josefina English, JADEN) 0856 (Given - Provider: Ethel Darling, JADEN)2109 (Given - Provider: Sohan Smith, JADEN) 09 (Given - Provider: Ethel Darling RN) tacrolimus (PROGRAF) capsule 1 mg 1 mg, Oral, NIGHTLY, First dose on 02/06/19 at 2345, Until Discontinued, Routine 2143 (Given - Provider: Josefina English RN) 2108 (Given - Provider: Sohan Smith RN) tacrolimus (PROGRAF) capsule 2 mg 2 mg, Oral, DAILY, First dose on Thu02/07/19 at 0900, Until Discontinued, Routine 0856 (Given - Provider: Arely Wang RN) 0855 (Given - Provider: Ethel Darling RN) 0911 (Given - Provider: Ethel Darling, JADEN) tamsulosin (FLOMAX) ER capsule 0.4 mg 0.4 mg, Oral, DAILY, First dose on Thu02/07/19 at 0900, Until Discontinued, DO NOT CRUSH OR OPEN, Routine 0857 (Given - Provider: Arely Wang RN) 0855 (Given - Provider: Ethel Darling, JADEN) 0911 (Given - Provider: Ethel Darling, JADEN) PRN Medication Order 02/09/2019 02/10/2019 02/11/2019 acetaminophen (TYLENOL) tablet 650 mg 650 mg, Oral, EVERY 8 HOURS PRN, Starting on Thu02/07/19 at 0219, Until Thu02/11/19 at 1548, Pain, Maximum dose of acetaminophen is 4000 mg from all sources in 24 hours., Routine 2112 (Given - Provider: Sohan Smith, RN) 419 (Given - Provider: Sohan Smith [...] Intramuscular, EVERY 1 HOUR PRN, Starting on 02/07/19 at 0022, Until Thu02/11/19 at 1548, Low [...] documented in this encounter Care Teams Senior 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
--- OUTSIDE RECORDS SUMMARY | 2024-04-04 14:01 | XMS_ITS | Encounter Summary ---
Author Organization Formerly [facility] [place] [address] Care Team Providers Care Metal Bench Patternmaker Name Role Phone Urbano Denis DO Primary Care Provider [phone] Reason for Referral * Consultation (Routine) - Specialty Diagnoses / Procedures Referred By Humberto flor Referred To Contact Cardiac Rehabilitation Diagnoses Non-ST elevation myocardial infarction (NSTEMI) Bobby Engel MD [facility] [place] [address] Referral ID Status Reason Start Date Expiration Date V isits Requested Visits Authorized [id number] Consult, Test & Treat 02/05/2019 08/04/2019 36 36 Reason for Visit * Reason Comments Dehydration Dizziness * Auth/Cert Specialty Diagnoses / Procedures Referred By Humberto flor Referred To Contact Diagnoses Paroxysmal atrial fibrillation Atrial fibrillation with RVR Referral ID Status Reason Start Date Expiration Date Visits Re quested Visits Authorized [id number] 1 1 Encounter Details Date Type Department Care Team (Latest Contact Info) Description 01/31/2019 11:21 AM EDT - 02/05/2019 4:04 PM EDT Hospital Encounter 1 [place] [address] [facility] [place] [address] [facility] [place] [address] [place] [address] [place] [address] [place] [address] Naif Garibay MD [facility] [place] [address] Paroxysmal atrial fibrillation; Non-ST elevation myocardial infarction [...] Ethel Bolden Patient Age: 68 y.o. Language: Norwegian Race: White Ethnicity: Not nor Admit date: [...] please contact your inpatient physician through the [facility] Estate Planning Counselor . Issues afterhours and on weekends will [...] Vitamin D deficiency ??? 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 CAH [...] fluid loss. Denies any fevers or chills. [place] bloated in abdomen since yesterday. No pain [...] was also started on apixaban due to [id number] score of 6, with no complications of [...] night,and patient reported a history of ARIELLA. [place] Sleepiness Scale was notable for increased sleepiness; [...] Complete By Expires Referral to Cardiac Rehab [[id number] Custom] As directed Process Instructions: If no progress note charted, please enter Clinical details in comments. Scheduling Instructions: Questions: My question or request is: Pt will participate in cardiac rehab @ [facility] Referral to Home Health - at DISCHARGE [OMX4926 CPT(R)] As directed Process Instructions: Scheduling Instructions: Comments: DOCUMENTATION FOR VNA SERVICES (INCLUDING THOSE PATIENTS WITH MEDICARE COVERAGE REQUIRING HOME VNA SERVICES AND/OR HOSPICE SERVICES) PATIENT'S LOCATION: Ethel Bolden [address] [place] [address] (home) Cell: Telephone Information: Cell Tender's Name: Patient In discussion with the attending physician, it is certified that this patient is under their care and that they, or a Nurse Practitioner,Clinical Nurse specialist or Physician Blooming Mill Supervisor who is working directly with them, had [...] for managing ADL's. HOME HEALTH CARE AGENCY: [facility]. PHONE: [phone] FAX: [phone] Start of care: 24-48hrs upon discharge FOR [...] [address] / [place] [id number] All VNA agencies which cover the area of patient's residence have been reviewed, either verbally greg writing, and patient/family have chosen the home health care agency noted Questions: Agency name and contact information: [facility] Patient location post discharge: [...] 02/05/2019 4:04 PM EDT Pt discharged to [facility] via wheelchair, accompanied by and RN. Belongings [...] Vitamin D deficiency ??? 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 USP current use of immunosuppressive drug ??? CAH [...] spent <30 minutes (Day of Discharge Code 46636) involved in the final examination of the [...] DAILY PROGRESS NOTE Patient: Ethel Bolden, 1950, [id number] Physician: Alessandro Limon DO, Pager: [phone], Hospital Medicine Service Admit Date: 01/31/2019 Date [...] PRN DIET: Daily Healthy Menu Choices/Cardiac diet ([facility]iet) IPI Certification I certify that I am a D-H credentialed attending provider with admitting privileges and that the patient meets or has met medical necessity to require an inpatient IPI level of care meeting a minimumof two midnights or is on the [facility] inpatient only procedure list (status C) [...] Alessandro Limon DO [facility] Hospitalist 02/04/2019 4:42 PM * Mahsa Celestin RN - 02/04/2019 3:41 PM EDT Spoke with patient regarding VNA services, he asked me to speak with Mundo. This copywriter Viktor and she asked for a referral to: [facility]. PHONE: [phone] FAX: [phone] Referral routed to the Analytic Programmer for matching with agency/vendor and to provide [...] Limon DO - 02/03/2019 5:02 PM EDT [facility] MEDICINE ATTENDING DAILY PROGRESS NOTE Patient: Ethel Bolden, 1950, [id number] Physician: Alessandro Limon DO, Pager: [phone], Hospital Medicine Service Admit Date: 01/31/2019 Date [...] PRN DIET: Daily Healthy Menu Choices/Cardiac diet ([facility]-Diet) IPI Certification I certify that I am a D-H credentialed attending provider with admitting privileges and that the patient meets or has met medical necessity to require an inpatient IPI level of care meeting a minimumof two midnights or is on the [facility] inpatient only procedure list (status C) [...] Alessandro Limon DO [facility] Hospitalist 02/03/2019 5:14 PM * Nika Starr [...] from 01/31/2019 in Intermediate Cardiac Care Unit [facility] Office Visit from 09/15/2018 in Solid Organ Transplant at [facility] Weight 107 kg (235 lb 14.3 oz) [...] - currently on heparin gtt; will need nursing home anticoagulation for CHADS-VASc of at least 4; [...] CURRENT MEDICATIONS: , Patient place back on [facility] for wob and o2. Will continue to monitor. Dario Peñaloza RCP * Alessandro Limon DO - 02/02/2019 3:47 PM EDT HOSPITAL MEDICINE ATTENDING DAILY PROGRESS NOTE Patient: Ethel Bolden, 1950, [id number] Physician: Alessandro Limon DO, Pager: [phone], [facility] Medicine Service Admit Date: 01/31/2019 Date of [...] minimumof two midnights or is on the [facility] inpatient only procedure list (status C) [...] Alessandro Limon DO [facility] Hospitalist 02/02/2019 8:59 PM * Yamile Montoya, [facility] - 02/02/2019 8:46 AM EDT Respiratory [...] 100% Non re breather for transport to Foreman Or Supervisor And Operator PLAN: RT will cont to support and [...] on 8L venti mask desat to 86%. ARTS AND CRAFTS INSTRUCTOR Giselle notified. Nebulizer ordered with minimal effect. Chest xray obtained. Pt place on 12L 50% venti.RT notified requesting hi-flow. Pt continued to desat. Placed on nonrebreather sating 89%. ARTS AND CRAFTS INSTRUCTOR notified. Nonrebreather only set to 50% fiO2 via hi flow stand. Came to bedside to assess. 2343- RT at bedside 2346- life safety at bedside * Alessandro Limon DO - 02/01/2019 4:28 PM EDT [facility] MEDICINE ATTENDING DAILY PROGRESS NOTE Patient: Ethel Bolden, 1950, [id number] Physician: Alessandro Limon DO, Pager: [phone], [facility] Medicine Service Admit Date: 01/31/2019 Date of [...] minimumof two midnights or is on the [facility] inpatient only procedure list (status C) [...] low 90s while on mask 65L 50%. ARTS AND CRAFTS INSTRUCTOR aware and had IVF stopped, ordered ABG - 7.46/33/122/22.9 on60% FO2Hb 97.4 with SpO2 still reading low 90s. Weaned FiO2 back down to 45%. Plan to start diuresis pending AM labs. PLAN: Wean settings as tolerated. Sharon Boo RCP * Polina Glaser RN - 01/31/2019 10:24 PM EDT Pt desating while asleep on RA. NC applied, unable to maintain sats on 6L NC. ARTS AND CRAFTS INSTRUCTOR Giselle notified.Came to bedside to assess. Pt placed on venti mask. Pt up to 50% 12L venti mask to maintain sats >90%. RT notified. Offset Proof Press Operator updated. No further labs ordered at this [...] Vitamin D deficiency ??? 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 USP current use of immunosuppressive drug ??? CAH [...] Hematuria ID: 68 y.o. Male presents to [facility] with lightheadedness and decreased urine output History [...] fluid loss. Denies any fevers or chills. [place] bloated in abdomen since yesterday. No pain [...] [facility] PRO REIMPLANT URETER, SINGLE URETER [...] ALLOGRAFT performed by Larry Larkin MD at [facility] ??? PRO TRANSPLANTATION OF KIDNEY N/A 09/16/2015 @KIDNEY TRANSPLANT, WITHOUT RECIPIENT NEPHRECTOMY performed by Larry Larkin MD at [facility] OR ??? US RENAL TRANSPLANT LEFT Left 01/31/2019 US Renal Transplant Left 01/31/2019 [facility] RAD ULTRASOUND Prior To Admission Medications: [...] file Gets together: Not on file Attends quaker service: Not on file Active member of [...] Negative mcL Appearance UA Clear Clear Spec [place] UA 1.023 1.002 - 1.030 Color UA [...] to medicine Rocky Wong MD Resident 01/31/19 2435 Associated attestation - Mundo Yeung MD - [...] EDT Med Student Progress Note ?? ID: Ethle Bolden is a 68 y.o. male with [...] m/r/g Lungs:??Some crackles up to lower lung uplliam b/l Abdomen: + BS, no tenderness to [...] - Work up for ARIELLA--scored high on [place] Sleep Scale; may benefit from outpatient sleep [...] if oxygen saturation >88% off oxygen ?? Desitnee Leggett M4 Pager: [phone] * Consult Note - Blanca Jacobo RN [...] in an outpatient cardiac rehabilitation program at [facility] was discussed. Patient agrees to a referral [...] EXTREMITY performed by Que Amaro MD at [facility] MAIN OR ??? PRO CYSTOURETHROSCOPY, URETER CATHETER Left 06/17/2018 CYSTO, RETROGRADE, URETEROPYELOGRAPHY (WRVU 2.37) performed by Edinson [facility] ??? PRO REIMPLANT URETER, SINGLE URETER [...] ALLOGRAFT performed by Larry Larkin MD at [facility] ??? PRO TRANSPLANTATION OF KIDNEY N/A 09/16/2015 @KIDNEY TRANSPLANT, WITHOUT RECIPIENT NEPHRECTOMY performed by Larry Larkin MD at [facility] OR ??? US RENAL TRANSPLANT LEFT Left 01/31/2019 US Renal Transplant Left 01/31/2019 [facility] RAD ULTRASOUND Social History: Patient lives with his . Home Setup: 2 emmett home with 4 ROCAEL; everything is accessible [...] and measurable assessment of functional outcome. Pager: [phone] Lee Ann Thomas OT 02/04/2019 Occupational Therapy [...] w/ O2 sat at low 90's and [id number]% non sustained. - 3:00am: Stewart x1, Pt [...] possibly be re-evaluated for cardiac rehab. Given [id number] score and history of aflutter, will begin [...] off oxygen ?? Destinee Leggett M4 Pager: [phone] * Consult Note - Sara Amador RN [...] Procedure Note: Patient Name: Ethel Bolden : [id number] MR#: [id number] Case Date: 02/02/2019 Estate Planning Counselor: Surgeon(s) and Role: * Bobby Engel MD [...] HR <50, Systolic BP <90 - Elevated [id number]; patient may benefit from anticoagulation; to discuss [...] d/c ?Thursday ?? Destinee Leggett M4 Pager: [phone] * Plan of Care - Sharon Ruth [...] New medications ordered and administered (see MAR). Wahley catheter put out 800mL after lasix administration. Patient continues to desat to the low 80s requiring up to 100% Fio2 to recover. 1653 patient transferred to the laboratory specialist PLAN MOVING FORWARD: Telemetry Heparin drip Bleeding [...] GENERIC Prescription Coverage: Yes Preferred Pharmacy: [facility] [address] [address] Not a 24 hour pharmacy; exact hours not known [place] [address] Not a 24 hour pharmacy; exact hours not known Other: None Primary Care Provider: Urbano Denis DO [phone] Patient/Caregiver Goals of Treatment: To get the [...] of care planning. Mahsa Celestin RN Pager: [phone] * Plan of Care - Nika Starr [...] left heart cath, coronaries Nika Starr MD [employer] Operator * Plan of Care - Polina Glaser [...] HR <50, Systolic BP <90 - Elevated [id number]; patient may benefit from anticoagulation but unclear [...] d/c ?Thursday ?? Destinee Leggett M4 Pager: [phone] * Consult Note - Larry Garay MD [...] Chest xray completed. Trop came back elevated. ARTS AND CRAFTS INSTRUCTOR Giselle notified. STAT EKG completed. Heparin gtt infusing as ordered. Life safety came to bedside. IVF decreased to 75cc/hr from 120cc/hr. Tele in sinus rhythm with frequent PVCs. Will CTM and notify the team with changes. 0410- Pt continues to have difficulty maintain sats on venti mask. Placed on Hi- flow mask. IVF stopped. Rt at bedside. ABG drawn. Life safety and ARTS AND CRAFTS INSTRUCTOR at bedside. PLAN MOVING FORWARD: Tele Monitor resp status Trend trop Heparin gtt INDIVIDUALIZED FALL PREVENTION INTERVENTIONS: Patient-specific fall risk factors per assessment: [current deficits]: Generalized weakness, whaley Assistance [level of assistance required for transfers and ambulation]: SBA Supervision [direct monitoring required during toileting and ADLs]: Hands on Surveillance [continuous indirect monitoring]: Masimmario, tele Patient-specific fall prevention interventions for sensory [...] remained coarse and diminished in bases. Primary ENTERPRISE BUSINESS ARCHITECT notified with concern of new oxygen demand. Plan made to d/c IVF r/tincreased pulmonary congestion shown on CXR and elevated troponin. AM labs drawn to evaluate RAY and d/c of IVF. MD expressed concerns of sleep apnea. When patient originally awake no increases in O2sat noted. PRESTO LOG OPERATOR notified and down to eval. Plan made [...] couple of years ago and don't want it.ENTERPRISE BUSINESS ARCHITECT consulted critical care fellow at this time. Lasix IVP was discussed to help with new pulmonary congestion. Plan made to re evaluate s/p AM labs (ie. BUN/Cr) for concern of worsening RAY. Plan made with ENTERPRISE BUSINESS ARCHITECT, primary RN, and rn discharge for continued monitoring of oxygen status, [...] with oxygenation. Plan made with primary RN, ENTERPRISE BUSINESS ARCHITECT, and rn discharge to have patient remain on floor [...] performed by [facility] ??? PRO REIMPLANT URETER, SINGLE URETER [...] ALLOGRAFT performed by Larry Larkin MD at [facility] ??? PRO TRANSPLANTATION OF KIDNEY N/A 09/16/2015 @KIDNEY TRANSPLANT, WITHOUT RECIPIENT NEPHRECTOMY performed by Larry Larkin MD at [facility] ??? US RENAL TRANSPLANT LEFT Left 01/31/2019 US Renal Transplant Left 01/31/2019 [facility] RAD ULTRASOUND No Known Allergies Cardiac [...] file Gets together: Not on file Attends quaker service: Not on file Active member of [...] ED to Hosp-Admission (Current) from 01/31/[address] [place] [address] Office Visit from 09/15/2018 in Solid Organ Transplant at [facility] Weight 106.1 kg (234 lb) 1 01/31/2019 [...] will continue to follow. Jessee Nance MD [employer] Operator [id number] POST ROUNDS ADDENDUM 68 year old [...] Cheung, addendum to follow. Nika Starr MD [employer] Operator [phone] Cardiology Staff Addendum Ethel Bolden is [...] on TTE) #Atrial fibrillation and flutter, nonvalvular, [id number] 6 #HFrEF/acute systolic HF, new (LVEF 35%), [...] PM EDT Office Visit Cardiology at [address] [address] [facility] [place] [place] [address] 04/15/2024 10:00 AM EDT Hospital Encounter [place] [address] Arrived Pending Results Name Type [...] EDT) pH, Arterial 7.50(H) 7.35 - 7.45 [facility] PCO2, Arterial 33(L) 35 - 45 mmHg [facility] PO2, Arterial 77(L) 85 - 104 mmHg [facility] Bicarbonate, Arterial 24.7 20.0 - 26.0 mmol/L [facility] Base Excess, Arterial 1.5 -3.0 - 3.0 mmol/L [facility] Hgb Blood Gas 16.3 13.7 - 16.5 gm/dL [facility] Oxyhemoglobin, Arterial 94.9 94.0 - 97.0 % [facility] Carboxyhemoglob in, Arterial 0.7 % [facility] Comment: Nonsmokers: 0.5-1.5% COHB Smokers: Variable, but usually less than 10% Toxic: 20-30% COHB Lethal: Greater than 60% COHB Methemoglobin, Arterial 0.5 <=1.5 % [facility] Na Whole Blood 133(L) 135 - 145 mmol/L [facility] K Whole Blood 4.1 3.5 - 5.0 mmol/L [facility] Comment: Please note: Patients with WBC >100,000 may have falsely elevated Potassium levels. Contact the Clinical Chemistry Laboratory if there are any questions. ICa Whole Blood 1.08(L) 1.15 - 1.33 mmol/L [facility] Comment: Note: ??Total bilirubin higher than 20 mg/dL may lead to falsely low ionized calcium. CL Whole Blood 98 98 - 107 mmol/L [facility] Gluc Whole Bld 138 65 - 199 mg/dL [facility] Comment:Diabetes: >=200 mg/d L plus symptoms. Lactate WB 1.5 0.5 - 2.2 mmol/L [facility] FIO2 Art 50 % [facility] PF Ratio Art 154 [facility] Blood specimen (specimen) 02/07/2019 2:42 AM EDT 02/07/2019 2:42 AM EDT Danny Hicks MD POINT OF CARE TEST O RDERABLES Performing Organization Address [facility] Co de Phone Number [facility] [place] [address] * POCT Glucose (02/05/2019 11:25 AM EDT) Glucose, POC 163 65 - 199 mg/dL [facility] Comment: Supplemental ranges: <140 mg/dL before meals <180 mg/dL all other times of the day Blood specimen (specimen) 02/05/2019 11:25 AM EDT 02/05/2019 11:25 AM EDT Alessandro Limon DO POINT OF CARE TEST O RDERABLES Performing Organization Address [facility] Co de Phone Number [facility] [place] [place] [address] * (ABNORMAL) Magnesium (02/05/2019 7:47 AM EDT) Magnesium 0.67(L) 0.69 - 1.07 mmol/L [facility] Blood specimen (specimen) 02/05/2019 7:47 AM EDT 02/05/2019 8:13 AM EDT Narrative Resulting Agency Comment Spec In Lab Alessandro Limon DO CHEMISTRY ORDERABLES Performing Organization Address [facility] Co de Phone Number [facility] [place] [address] * POCT Glucose (02/05/2019 6:56 AM EDT) Glucose, POC 110 65 - 199 mg/dL [facility] Comment: Supplemental ranges: <140 mg/dL before meals <180 mg/dL all other times of the day Blood specimen (specimen) 02/05/2019 6:56 AM EDT 02/05/2019 6:56 AM EDT Alessandro Limon DO POINT OF CARE TEST O RDERABLES Performing Organization Address [facility] de Phone Number [facility] [place] [address] * POCT Glucose (02/04/2019 7:38 PM EDT) Glucose, POC 102 65 - 199 mg/dL [facility] Comment: Supplemental ranges: <140 mg/dL before meals <180 mg/dL all other times of the day Blood specimen (specimen) 02/04/2019 7:38 PM EDT 02/04/2019 7:38 PM EDT Alessandro Limon DO POINT OF CARE TEST O RDERABLES Performing Organization Address [facility] de Phone Number [facility] [place] [address] * (ABNORMAL) BMP w/fasting Glucose (02/04/2019 7:35 PM EDT) Glucose Fasting 107(H) 65 - 99 mg/dL [facility] Comment: ?Fasting* Glucose Interpretive [...] of Diabetes Mellitus, Position Statement from the [place] [employer]. ??Diabetes Care, Volume 33, Supplement 1, Jul 2009 Blood Urea Nitrogen 20 10 - 20 mg/dL [facility] Creatinine 1.43 0.80 - 1.50 mg/dL [facility] Sodium 142 135 - 145 mmol/L [facility] Potassium 3.4(L) 3.5 - 5.0 mmol/L [facility] Comment: Please note: ??Patients with WBC >100,000 may have falsely elevated Potassium levels. ??For accurate Potassium quantification in these patients send serum separator tube (gold top) for subsequent determinations. ??Contact the Clinical Chemistry Laboratory if there are any questions. Chloride 98 98 - 107 mmol/L [facility] Carbon Dioxide 31 22 - 31 mmol/L [facility] Anion Gap 13 5 - 15 mmol/L [facility] Calcium 9.2 8.5 - 10.5 mg/dL [facility] Est Glomerular Filtration Rate 49(L) >=60 mL/min/1. 73 m?? [facility] Comment: The eGFR was calculated using the CKD-EPI equation. As with all creatinine based estimates of kidney function, eGFR values calculated with the CKD-EPI equation are not accurate in patients with acute kidney failure, extremes of body mass or the acutely ill. http://[employer]/[facility] eGFR 57(L) >=60 mL/min/1. 73 m?? [facility] Comment: The eGFR was calculated using the CKD-EPI equation. As with all creatinine based estimates of kidney function, eGFR values calculated with the CKD-EPI equation are not accurate in patients with acute kidney failure, extremes of body mass or the acutely ill. http://[employer]/[facility] Blood specimen (specimen) 02/04/2019 7:35 PM EDT 02/04/2019 7:40 PM EDT Narrative Resulting Agency Comment Spec In Lab Patricia Lozano APRN CHEMISTRY ORDERAB LES [facility] [place] [place] [address] * POCT Glucose (02/04/2019 4:30 PM EDT) Glucose, POC 143 65 - 199 mg/dL [facility] Comment: Supplemental ranges: <140 mg/dL before meals <180 mg/dL all other times of the day Blood specimen (specimen) 02/04/2019 4:30 PM EDT 02/04/2019 4:30 PM EDT Alessandro Limon DO POINT OF CARE TEST O RDERABLES Performing Organization Address [facility] Co de Phone Number [facility] [place] [address] * POCT Glucose (02/04/2019 11:26 AM EDT) Glucose, POC 141 65 - 199 mg/dL [facility] Comment: Supplemental ranges: <140 mg/dL before meals <180 mg/dL all other times of the day Blood specimen (specimen) 02/04/2019 11:26 AM EDT 02/04/2019 11:26 AM EDT Alessandro Limon DO POINT OF CARE TEST O RDERABLES Performing Organization Address [facility] Co de Phone Number [facility] [place] [address] * POCT Glucose (02/04/2019 7:01 AM EDT) Glucose, POC 152 65 - 199 mg/dL [facility] Comment: Supplemental ranges: <140 mg/dL before meals <180 mg/dL all other times of the day Blood specimen (specimen) 02/04/2019 7:01 AM EDT 02/04/2019 7:01 AM EDT Alessandro Limon DO POINT OF CARE TEST O RDERABLES Performing Organization Address City/[facility]/ZIP Co de Phone Number [facility] [place] [address] * Magnesium (02/04/2019 3:40 AM EDT) Magnesium 0.69 0.69 - 1.07 mmol/L [facility] Blood specimen (specimen) Venous Draw / Unknown 02/04/2019 3:40 AM EDT 02/04/2019 3:49 AM EDT Narrative Resulting Agency Comment Spec In Lab Alessandro Limon DO CHEMISTRY ORDERABLES [facility] [place] [address] * (ABNORMAL) Basic Metabolic Panel (non-fasting) (02/04/2019 3:40 AM EDT) Pathologist [facility] Glucose 126 65 - 199 mg/dL [facility] Comment:Diabetes: >=200 mg/d L plus symptoms Blood Urea Nitrogen 21(H) 10 - 20 mg/dL [facility] Creatinine 1.56(H) 0.80 - 1.50 mg/dL [facility] Sodium 139 135 - 145 mmol/L [facility] mmol/L [facility] Calcium 8.7 8.5 - 10.5 mg/dL [facility] [...] of body mass or the acutely ill. [email or web address] eGFR 51(L) >=60 mL/min/1. 73 m?? [facility] Comment: The eGFR was calculated using the CKD-EPI equation. As with all creatinine based estimates of kidney function, eGFR values calculated with the CKD-EPI equation are not accurate in patients with acute kidney failure, extremes of body mass or the acutely ill. [email or web address] Blood specimen (specimen) 02/04/2019 3:40 AM EDT 02/04/2019 3:49 AM EDT Narrative Resulting Agency Comment Spec In Lab Alessandro Limon DO CHEMISTRY ORDERABLES [facility] [place] [address] * (ABNORMAL) Hemogram (02/04/2019 3:40 AM EDT) White Blood Cell 9.8(H) 4.0 - 9.5 x10(3)/mc L [facility] Red Blood Cell 4.59 4.58 - 5.54 x10(6)/mc L [facility] Hemoglobin 14.1 13.7 - 16.5 gm/dL [facility] Hematocrit 41.9 40.5 - 48.5 % [facility] Mean Cell Volume 91.3 82.9 - 93.1 fL [facility] Mean Cell Hemoglobin 30.7 27.5 - 32.1 pg [facility] Mean Cell Hemoglobin Concentration 33.7 32.0 - 35.7 gm/dL [facility] Platelet 247 145 - 357 x10(3)/mc L [facility] RDW Standard Deviation 45.1(H) 36.0 - 45.0 fL [facility] RDW coefficient of variation 13.8 11.4 - 13.8 % [facility] Mean Platelet Volume 9.5 7.6 - 12.9 fL [facility] NRBC% auto 0.0 % [facility] NRBC Absolute 0.000 0.000 - 0.000 x10(3)/mc L [facility] Blood specimen (specimen) 02/04/2019 3:40 AM EDT 02/04/2019 3:49 AM EDT Narrative Resulting Agency Comment Spec In Lab Alessandro Limon DO HEMATOLOGY ORDERABLE S Performing Organization Address [facility] de Phone Number [facility] [place] [address] * POCT Glucose (02/03/2019 8:56 PM EDT) [facility] Glucose, POC 117 65 - 199 mg/dL [facility] Comment: Supplemental ranges: <140 mg/dL before meals <180 mg/dL all other times of the day Blood specimen (specimen) 02/03/2019 8:56 PM EDT 02/03/2019 8:56 PM EDT Alessandro Limon DO POINT OF CARE TEST O RDERABLES Performing Organization Address [facility] de Phone Number [facility] [place] [address] * Heparin (unfractionated) Level (02/03/2019 5:07 PM EDT) [facility] UF Heparin 0.31 IU/mL [facility] Comment: Guidelines for therapeutic unfractionated [...] MD HEMATOLOGY ORDERABLE S Performing Organization Address [facility] Co de Phone Number [facility] [place] [address] * POCT Glucose (02/03/2019 4:40 PM EDT) Glucose, POC 160 65 - 199 mg/dL [facility] Comment: Supplemental ranges: <140 mg/dL before meals <180 mg/dL all other times of the day Blood specimen (specimen) 02/03/2019 4:40 PM EDT 02/03/2019 4:40 PM EDT Alessandro Limon DO POINT OF CARE TEST O RDERABLES Performing Organization Address [facility] Co de Phone Number [facility] [place] [address] * POCT Glucose (02/03/2019 11:41 AM EDT) Glucose, POC 169 65 - 199 mg/dL [facility] Comment: Supplemental ranges: <140 mg/dL before meals <180 mg/dL all other times of the day Blood specimen (specimen) 02/03/2019 11:41 AM EDT 02/03/2019 11:41 AM EDT Alessandro Limon DO POINT OF CARE TEST O RDERABLES Performing Organization Address [facility] Co de Phone Number [facility] [address] * Heparin (unfractionated) Level (02/03/2019 10:02 AM EDT) Pathologist [facility] UF Heparin 0.33 IU/mL [facility] Comment: Guidelines for therapeutic unfractionated [...] DO HEMATOLOGY ORDERABLE S Performing Organization Address [facility] de Phone Number [facility] [place] [address] * POCT Glucose (02/03/2019 7:14 AM EDT) Pathologist [facility] Glucose, POC 118 65 - 199 mg/dL [facility] Comment: Supplemental ranges: <140 mg/dL before meals <180 mg/dL all other times of the day Blood specimen (specimen) 02/03/2019 7:14 AM EDT 02/03/2019 7:14 AM EDT Alessandro Limon DO POINT OF CARE TEST O RDERABLES Performing Organization Address [facility] de Phone Number [facility] [place] [address] * Magnesium (02/03/2019 6:34 AM EDT) Magnesium 0.71 0.69 - 1.07 mmol/L [facility] Blood specimen (specimen) 02/03/2019 6:34 AM EDT 02/03/2019 6:41 AM EDT Narrative Resulting Agency Comment Spec In Lab Alessandro Limon DO CHEMISTRY ORDERABLES [facility] [address] * (ABNORMAL) Basic Metabolic Panel (non-fasting) (02/03/2019 6:34 AM EDT) Glucose 115 65 - 199 mg/dL [facility] Comment:Diabetes: >=200 mg/d L plus symptoms Blood Urea Nitrogen 22(H) 10 - 20 mg/dL [facility] Creatinine 1.44 0.80 - 1.50 mg/dL [facility] Sodium 137 135 - 145 mmol/L [facility] Potassium 3.4(L) 3.5 - 5.0 mmol/L [facility] Comment: Please note: ??Patients with WBC >100,000 may have falsely elevated Potassium levels. ??For accurate Potassium quantification in these patients send serum separator tube (gold top) for subsequent determinations. ??Contact the Clinical Chemistry Laboratory if there are any questions. Chloride 101 98 - 107 mmol/L [facility] Carbon Dioxide 26 22 - 31 mmol/L [facility] Anion Gap 10 5 - 15 mmol/L [facility] Calcium 8.4(L) 8.5 - 10.5 mg/dL [facility] Est Glomerular Filtration Rate 49(L) >=60 mL/min/1. 73 m?? [facility] Comment: The eGFR was calculated using the CKD-EPI equation. As with all creatinine based estimates of kidney function, eGFR values calculated with the CKD-EPI equation are not accurate in patients with acute kidney failure, extremes of body mass or the acutely ill. [email or web address] eGFR 57(L) >=60 mL/min/1. 73 m?? [facility] Comment: The eGFR was calculated using the CKD-EPI equation. As with all creatinine based estimates of kidney function, eGFR values calculated with the CKD-EPI equation are not accurate in patients with acute kidney failure, extremes of body mass or the acutely ill. [email or web address] Blood specimen (specimen) 02/03/2019 6:34 AM EDT 02/03/2019 6:41 AM EDT Narrative Resulting Agency Comment Spec In Lab Alessandro Limon DO CHEMISTRY ORDERABLES [facility] [place] [address] * (ABNORMAL) Hemogram (02/03/2019 6:34 AM EDT) White Blood Cell 8.9 4.0 - 9.5 x10(3)/mc L [facility] Red Blood Cell 4.05(L) 4.58 - 5.54 x10(6)/mc L [facility] Hemoglobin 12.8(L) 13.7 - 16.5 gm/dL [facility] Hematocrit 38.0(L) 40.5 - 48.5 % [facility] Mean Cell Volume 93.8(H) 82.9 - 93.1 fL [facility] Mean Cell Hemoglobin 31.6 27.5 - 32.1 pg [facility] Mean Cell Hemoglobin Concentration 33.7 32.0 - 35.7 gm/dL [facility] Platelet 200 145 - 357 x10(3)/mc L [facility] RDW Standard Deviation 46.7(H) 36.0 - 45.0 fL [facility] RDW coefficient of variation 13.8 11.4 - 13.8 % [facility] Mean Platelet Volume 9.6 7.6 - 12.9 fL [facility] NRBC% auto 0.0 % [facility] NRBC Absolute 0.000 0.000 - 0.000 x10(3)/mc L [facility] Blood specimen (specimen) 02/03/2019 6:34 AM EDT 02/03/2019 6:41 AM EDT Narrative Resulting Agency Comment Spec In Lab Alessandro Limon DO HEMATOLOGY ORDERABLE S Performing Organization Address City/[facility]/ZIP Co de Phone Number [facility] [place] [address] * POCT Glucose (02/02/2019 10:04 PM EDT) Glucose, POC 188 65 - 199 mg/dL [facility] Comment: Supplemental ranges: <140 mg/dL before meals <180 mg/dL all other times of the day Blood specimen (specimen) 02/02/2019 10:04 PM EDT 02/02/2019 10:04 PM EDT Alessandro Limon DO POINT OF CARE TEST O RDERABLES Performing Organization Address [facility] Co de Phone Number [facility] [place] [address] * POCT Glucose (02/02/2019 7:54 PM EDT) Glucose, POC 101 65 - 199 mg/dL [facility] Comment: Supplemental ranges: <140 mg/dL before meals <180 mg/dL all other times of the day Blood specimen (specimen) 02/02/2019 7:54 PM EDT 02/02/2019 7:54 PM EDT Alessandro Limon DO POINT OF CARE TEST O RDERABLES Performing Organization Address City/[facility]/ZIP Co de Phone Number [facility] [place] [address] * EKG 12 Lead (02/02/2019 7:26 PM EDT) Ventricular rate 65 BPM MUSE SYSTEM Atrial Rate 65 BPM MUSE SYSTEM P-R Interval 192 ms MUSE SYSTEM QRS Duration 116 ms MUSE SYSTEM Q-T Interval 440 ms MUSE SYSTEM QTC Calculated (Bezet) 457 ms MUSE SYSTEM Calculated P Cunningham 48 degrees MUSE SYSTEM Calculated R Cunningham -59 degrees MUSE SYSTEM Calculated T Cunningham 15 degrees MUSE SYSTEM INTERPRETATION Sinus rhythm with Premature atrial complexes Left anterior fascicular block Abnormal ECG When compared with ECG of 01-FEB-2019 01:00, T wave inversion no longer evident in Anterolateral leads Confirmed by MD Phillip Daniel ([id number]) on 02/03/2019 3:52:55 PM MUSE SYSTEM 02/02/2019 7:26 PM EDT 02/03/2019 3:52 PM EDT Alessandro Limon DO ECG ORDERABLES MUSE SYSTEM * CARDIAC CATHETERIZATION (02/02/2019 6:59 PM EDT) Anatomical Region Laterality Modality Other Narrative 02/03/2019 1:49 AM EDT ?[facility] ? Cardiac Catheterization/Intervention Report ? Patient Name: Ethel Bolden. ? Procedure Date: 02/02/2019 ? A #: [id number] ? Primary Physician: Toro, Bobby T ? Case #: [id number] ? File Name: [id number] ? Catheterization Order Number: [id number] ? [facility] ? Final Report [place], [place] ? Patient Name: ? Ethel P. Tubiello ? ID#: ?[id number] ? : ?1950 ? Procedure Date: ? [...] procedure was Urgent. The indication for ?the laboratory specialist visit is ACS less than or equal [...] on chronic DAPT on arrival to the laboratory specialist. ?Recommend continuing clopidogrel 75 mg PO daily [...] Procedure Note Bobby Engel MD - 06/25/2019 [facility] Cardiac Catheterization/Intervention Report Patient Name: Ethel Bolden Procedure Date: 02/02/2019 A #: [id number] Primary Physician: Bobby Enegl Case #: [id number] File Name: [id number] Catheterization Order Number: [id number] [facility] FinalReport [place], [place] Patient Name: Ethel Bolden ID#:[id number] :1950 Procedure Date: February 02, 2019 Case [...] patient was designated as ASAClass III. The [facility] clinical frailty scale is 6: Moderately Frail. Diagnostic Tests: Prior Coronary Angiography: LV ejection fraction within 6 months is 55%. Electrocardiography: EKG was assessed by ECG. EKG was Abnormal. EKG showed T-wave inversions. Medications Prior to Procedure: ASA and Statin. Indications for Diagnostic Cath: The priority of the diagnostic procedure was Urgent. The indicationfor the laboratory specialist visit is ACS less than or equal [...] The lesion was predilated with a 2.00mm [id number] MM balloon with a maximum inflation pressure [...] on chronic DAPT on arrival to the laboratory specialist. Recommend continuing clopidogrel 75 mg PO daily [...] EDT) pH, POC 7.48(H) 7.35 - 7.45 [facility] pCO2, POC 33(L) 35 - 45 mmHg [facility] pO2, POC 51(L) 85 - 104 mmHg [facility] Base Excess, POC 1.0 -3.0 - 3.0 mmol/L [facility] Bicarbonate, POC 24.9 20.0 - 26.0 mmol/L [facility] Sodium, POC 140 135 - 145 mmol/L [facility] POC Potassium 3.5 3.5 - 5.0 mmol/L [facility] Ionized Calcium, POC 1.15 1.15 - 1.33 mmol/L [facility] POC Hematocrit 41.0 40.0 - 51.0 % [facility] POC Calc Hgb 13.9 13.7 - 17.5 gm/dL [facility] Comment:The calculation of h emoglobin from hematocrit assumes a normal MCHC. POC Bgas Loc CC LAB [facility] Blood specimen (specimen) 02/02/2019 6:15 PM EDT 02/04/2019 1:23 PM EDT Alessandro Limon DO CHEMISTRY ORDERABLES Performing Organization Address [facility] Co de Phone Number [facility] [place] [address] * POCT Glucose (02/02/2019 4:16 PM EDT) Glucose, POC 114 65 - 199 mg/dL [facility] Comment: Supplemental ranges: <140 mg/dL before meals <180 mg/dL all other times of the day Blood specimen (specimen) 02/02/2019 4:16 PM EDT 02/02/2019 4:16 PM EDT Alessandro Limon DO POINT OF CARE TEST O RDERABLES Performing Organization Address [facility] Co de Phone Number [facility] [address] * XR Chest One View (02/02/2019 3:30 [...] EDT) pH, Arterial 7.46(H) 7.35 - 7.45 [facility] PCO2, Arterial 32(L) 35 - 45 mmHg [facility] PO2, Arterial 103 85 - 104 mmHg [facility] Bicarbonate, Arterial 22.2 20.0 - 26.0 mmol/L [facility] Base Excess, Arterial -1.5 -3.0 - 3.0 mmol/L [facility] Hgb Blood Gas 14.9 13.7 - 16.5 gm/dL [facility] Oxyhemoglobin, Arterial 97.1(H) 94.0 - 97.0 % [facility] Carboxyhemoglob in, Arterial 0.5 % [facility] Comment: Nonsmokers: 0.5-1.5% COHB Smokers: Variable, but usually less than 10% Toxic: 20-30% COHB Lethal: Greater than 60% COHB Methemoglobin, Arterial 0.3 <=1.5 % [facility] Na Whole Blood 134(L) 135 - 145 mmol/L [facility] K Whole Blood 3.8 3.5 - 5.0 mmol/L [facility] Comment: Please note: Patients with WBC >100,000 may have falsely elevated Potassium levels. Contact the Clinical Chemistry Laboratory if there are any questions. ICa Whole Blood 1.16 1.15 - 1.33 mmol/L [facility] Comment: Note: ??Total bilirubin higher than 20 mg/dL may lead to falsely low ionized calcium. CL Whole Blood 102 98 - 107 mmol/L [facility] Gluc Whole Bld 123 65 - 199 mg/dL [facility] Comment:Diabetes: >=200 mg/d L plus symptoms. Lactate WB 1.3 0.5 - 2.2 mmol/L [facility] FIO2 Art 70 % [facility] PF Ratio Art 147 [facility] Blood specimen (specimen) 02/02/2019 3:23 PM EDT 02/02/2019 3:23 PM EDT Alessandro Limon DO POINT OF CARE TEST O RDERABLES [facility] [place] [address] * POCT Glucose (02/02/2019 12:44 PM EDT) Glucose, POC 129 65 - 199 mg/dL [facility] Comment: Supplemental ranges: <140 mg/dL before meals <180 mg/dL all other times of the day Blood specimen (specimen) 02/02/2019 12:44 PM EDT 02/02/2019 12:44 PM EDT Alessandro Limon DO POINT OF CARE TEST O RDERABLES Performing Organization Address [facility] de Phone Number [facility] [place] [address] * Heparin (unfractionated) Level (02/02/2019 12:33 PM EDT) Pathologist [facility] UF Heparin 0.29 IU/mL [facility] Comment: Guidelines for therapeutic unfractionated [...] MD HEMATOLOGY ORDERABLE S Performing Organization Address [facility] de Phone Number [facility] [place] [address] * POCT Glucose (02/02/2019 11:31 AM EDT) Pathologist [facility] Glucose, POC 144 65 - 199 mg/dL [facility] Comment: Supplemental ranges: <140 mg/dL before meals <180 mg/dL all other times of the day Blood specimen (specimen) 02/02/2019 11:31 AM EDT 02/02/2019 11:31 AM EDT Alessandro Limon DO POINT OF CARE TEST O RDERABLES Performing Organization Address [facility] de Phone Number [facility] [place] [address] * (ABNORMAL) POCT Glucose (02/02/2019 8:23 AM EDT) Glucose, POC 217(H) 65 - 199 mg/dL [facility] Comment: Supplemental ranges: <140 mg/dL before meals <180 mg/dL all other times of the day Blood specimen (specimen) 02/02/2019 8:23 AM EDT 02/02/2019 8:23 AM EDT Alessandro Limon DO POINT OF CARE TEST Mario JEAN Performing Organization Address [facility] de Phone Number [facility] [place] [address] * Heparin (unfractionated) Level (02/02/2019 6:12 AM EDT) Pathologist [facility] UF Heparin 0.32 IU/mL [facility] Comment: Guidelines for therapeutic unfractionated [...] MD HEMATOLOGY ORDERABLE S Performing Organization Address [facility] Co de Phone Number [facility] [address] * Magnesium (02/02/2019 6:12 AM EDT) Magnesium 0.74 0.69 - 1.07 mmol/L [facility] Blood specimen (specimen) 02/02/2019 6:12 AM EDT 02/02/2019 6:33 AM EDT Narrative Resulting Agency Comment Spec In Lab Alessandro Limon DO CHEMISTRY ORDERABLES Performing Organization Address [facility] Co de Phone Number [facility] [place] [address] * (ABNORMAL) Basic Metabolic Panel (non-fasting) (02/02/2019 6:12 AM EDT) Glucose 146 65 - 199 mg/dL [facility] Comment:Diabetes: >=200 mg/d L plus symptoms Blood Urea Nitrogen 29(H) 10 - 20 mg/dL [facility] Creatinine 1.64(H) 0.80 - 1.50 mg/dL [facility] [...] questions. Chloride 100 98 - 107 mmol/L [facility] Carbon Dioxide 25 22 - 31 mmol/L [facility] Anion Gap 13 5 - 15 mmol/L [facility] Calcium 8.9 8.5 - 10.5 mg/dL [facility] Est Glomerular Filtration Rate 42(L) >=60 mL/min/1. 73 m?? [facility] Comment: The eGFR was calculated using the CKD-EPI equation. As with all creatinine based estimates of kidney function, eGFR values calculated with the CKD-EPI equation are not accurate in patients with acute kidney failure, extremes of body mass or the acutely ill. [email or web address] eGFR 48(L) >=60 mL/min/1. 73 m?? [facility] Comment: The eGFR was calculated using the CKD-EPI equation. As with all creatinine based estimates of kidney function, eGFR values calculated with the CKD-EPI equation are not accurate in patients with acute kidney failure, extremes of body mass or the acutely ill. [email or web address] Blood specimen (specimen) 02/02/2019 6:12 AM EDT 02/02/2019 6:33 AM EDT Narrative Resulting Agency Comment Spec In Lab Alessandro Limon DO CHEMISTRY ORDERABLES [facility] [place] [address] * (ABNORMAL) Hemogram (02/02/2019 6:12 AM EDT) White Blood Cell 9.7(H) 4.0 - 9.5 x10(3)/mc L [facility] Red Blood Cell 4.52(L) 4.58 - 5.54 x10(6)/mc L [facility] Hemoglobin 14.0 13.7 - 16.5 gm/dL [facility] Hematocrit 42.4 40.5 - 48.5 % [facility] Mean Cell Volume 93.8(H) 82.9 - 93.1 fL [facility] Mean Cell Hemoglobin 31.0 27.5 - 32.1 pg [facility] Mean Cell Hemoglobin Concentration 33.0 32.0 - 35.7 gm/dL [facility] Platelet 206 145 - 357 x10(3)/mc L [facility] RDW Standard Deviation 45.8(H) 36.0 - 45.0 fL [facility] RDW coefficient of variation 13.8 11.4 - 13.8 % [facility] Mean Platelet Volume 9.9 7.6 - 12.9 fL [facility] NRBC% auto 0.0 % [facility] NRBC Absolute 0.000 0.000 - 0.000 x10(3)/mc L [facility] Blood specimen (specimen) 02/02/2019 6:12 AM EDT 02/02/2019 6:33 AM EDT Narrative Resulting Agency Comment Spec In Lab Alessandro Limon DO HEMATOLOGY ORDERABLE S Performing Organization Address City/[facility]/ZIP Co de Phone Number [facility] [place] [address] * POCT Glucose (02/02/2019 6:10 AM EDT) Pathologist [facility] Glucose, POC 139 65 - 199 mg/dL [facility] Comment: Supplemental ranges: <140 mg/dL before meals <180 mg/dL all other times of the day Blood specimen (specimen) 02/02/2019 6:10 AM EDT 02/02/2019 6:10 AM EDT Alessandro Limon DO POINT OF CARE TEST O RDERABLES Performing Organization Address City/[facility]/ZIP Co de Phone Number [facility] [place] [address] * Heparin (unfractionated) Level (02/01/2019 11:42 PM EDT) Pathologist [facility] UF Heparin 0.24 IU/mL [facility] Comment: Guidelines for therapeutic unfractionated [...] HEALTH CARE SERVICES Co de Phone Number [facility] [place] [address] * XR Chest PA or AP 1 [...] Glucose, POC 111 65 - 199 mg/dL [facility] Comment: Supplemental ranges: <140 mg/dL before meals <180 mg/dL all other times of the day Blood specimen (specimen) 02/01/2019 8:41 PM EDT 02/01/2019 8:41 PM EDT Alessandro Limon DO POINT OF CARE TEST O DENNYSERABG Performing Organization Address City/[facility]/ZIP Co de Phone Number [facility] [place] [address] * POCT Glucose (02/01/2019 5:02 PM EDT) Pathologist [facility] Glucose, POC 145 65 - 199 mg/dL [facility] Comment: Supplemental ranges: <140 mg/dL before meals <180 mg/dL all other times of the day Blood specimen (specimen) 02/01/2019 5:02 PM EDT 02/01/2019 5:02 PM EDT Alessandro Neeru Braxton KIRBY POINT OF CARE TEST O DENNYSERABG Performing Organization Address [facility] Co de Phone Number [facility] [place] [address] * (ABNORMAL) Troponin (02/01/2019 4:50 PM EDT) [facility] Troponin-T 0.08(H) 0.00 - 0.00 ng/mL [facility] ischemia ?? New or presumed new significant IU-lukpzpo-U wave (ST-T) changes or new left bundle [...] additional sample may be indicated. Reference: Third Tyner Definition of Myocardial Infarction. Journal of the [place] [employer] 2012;60:1581-98 Blood specimen (specimen) 02/01/2019 4:50 PM EDT 02/01/2019 5:14 PM EDT Narrative Resulting Agency Comment Spec In Lab Anabel Duncan MD CHEMISTRY ORDERABLES Performing Organization Address [facility] de Phone Number [facility] [place] [address] * Heparin (unfractionated) Level (02/01/2019 4:50 PM EDT) Pathologist [facility] UF Heparin 0.22 IU/mL [facility] Comment: Guidelines for therapeutic unfractionated [...] HEMATOLOGY ORDERABLE S Performing Organization Address [facility] de Phone Number [facility] [place] [address] * (ABNORMAL) Magnesium (02/01/2019 3:04 PM EDT) Pathologist [facility] Magnesium 0.68(L) 0.69 - 1.07 mmol/L [facility] Blood specimen (specimen) 02/01/2019 3:04 PM EDT 02/01/2019 3:25 PM EDT Narrative Resulting Agency Comment Spec In Lab Alesasndro Limon CHEMISTRY ORDERABLES [facility] [place] [address] * (ABNORMAL) Basic Metabolic Panel (non-fasting) (02/01/2019 3:04 PM EDT) Glucose 129 65 - 199 mg/dL [facility] Comment:Diabetes: >=200 mg/d L plus symptoms Blood Urea Nitrogen 33(H) 10 - 20 mg/dL [facility] Creatinine 2.05(H) 0.80 - 1.50 mg/dL [facility] Sodium 138 135 - 145 mmol/L [facility] Potassium 4.1 3.5 - 5.0 mmol/L [facility] Comment: Please note: ??Patients with WBC >100,000 may have falsely elevated Potassium levels. ??For accurate Potassium quantification in these patients send serum separator tube (gold top) for subsequent determinations. ??Contact the Clinical Chemistry Laboratory if there are any questions. Chloride 100 98 - 107 mmol/L [facility] Carbon Dioxide 25 22 - 31 mmol/L [facility] Anion Gap 13 5 - 15 mmol/L [facility] Calcium 8.9 8.5 - 10.5 mg/dL [facility] Comment:result rechecked-imm Est Glomerular Filtration Rate 32(L) >=60 mL/min/1. 73 m?? [facility] Comment: The eGFR was calculated using the CKD-EPI equation. As with all creatinine based estimates of kidney function, eGFR values calculated with the CKD-EPI equation are not accurate in patients with acute kidney failure, extremes of body mass or the acutely ill. [email or web address] eGFR 37(L) >=60 mL/min/1. 73 m?? [facility] Comment: The eGFR was calculated using the CKD-EPI equation. As with all creatinine based estimates of kidney function, eGFR values calculated with the CKD-EPI equation are not accurate in patients with acute kidney failure, extremes of body mass or the acutely ill. [email or web address] Blood specimen (specimen) 02/01/2019 3:04 PM EDT 02/01/2019 3:25 PM EDT Narrative Resulting Agency Comment Spec In Lab Alessandro Limon DO CHEMISTRY ORDERABLES Performing Organization Address [facility] de Phone Number [facility] [place] [address] * POCT Glucose (02/01/2019 11:22 AM EDT) [facility] Glucose, POC 116 65 - 199 mg/dL [facility] Comment: Supplemental ranges: <140 mg/dL before meals <180 mg/dL all other times of the day Blood specimen (specimen) 02/01/2019 11:22 AM EDT 02/01/2019 11:22 AM EDT Alessandro Limon DO POINT OF CARE TEST O RDERABLES Performing Organization Address [facility] de Phone Number [facility] [place] [address] * Heparin (unfractionated) Level (02/01/2019 10:58 AM EDT) [facility] UF Heparin 0.15 IU/mL [facility] Comment: Guidelines for therapeutic unfractionated [...] HEALTH CARE SERVICES Co de Phone Number [facility] [place] [address] * ECHO COMPLETE W CONTRAST (02/01/2019 10:38 AM EDT) Anatomical Region Laterality Modality Other 02/01/2019 Narrative 02/01/2019 10:52 AM EDT Amended Report Procedure: ?Transthoracic Echocardiogram Patient: ?TUBCRAIG FERRARAUEL P ? (Age): 1950(68y) Med Rec#: ? [id number] ?Sex: ?M ? [place] [facility] [place]Ht / Wt: ??177(cm)/104(kg) Pt. Loc: ?Adult Floor ? BSA: ?2.2 Study Date: ?? 02/01/2019 ?Pt. Type: Inpatient Tape: ? Referring: Anabel Duncan Reading: Gibson Rooney ([id number]) Powerplant Operator: Kameron Miller [facility] Diagnosis: *Paroxysmal atrial fibrillation (I48.0) Rhythm: ? [...] ? Mid-Inferior ?Hypokinetic ? Mid-Inferoseptal ?Hypokinetic ? [place]-Septal ? Hypokinetic ? [place]-Anterior ? Normal ? [place]-Lateral ?Hypokinetic ? [place]-Inferior ? Hypokinetic ? [place]-Tip ?Hypokinetic ? This report has been electronically signed by: Gibson Rooney MD ? 02/01/2019 13:30:01 Images reviewed and interpretation verified [facility] Cardiac Ultrasound Laboratory Procedure Note Gibson Rooney MD - 02/01/2019 Amended Report Procedure: Transthoracic Echocardiogram Patient: MABLE DORANTES(Age): 1950(68y) Med Rec#: [id number] Sex: M [place] [facility] Ht / Wt: 177(cm)/104(kg) Pt. Loc: Adult Floor BSA: 2.2 Study Date: 02/01/2019 Pt. Type: Inpatient Tape: Referring: Anabel Duncan Reading: Gibson Rooney ([id number]) Powerplant Operator: Kameron Miller [facility] Diagnosis: *Paroxysmal atrial fibrillation (I48.0) Rhythm: [...] Hypokinetic Mid-Posterolateral Akinetic Mid-Inferior Hypokinetic Mid-Inferoseptal Hypokinetic [place]-Septal Hypokinetic [place]-Anterior Normal [place]-Lateral Hypokinetic [place]-Inferior Hypokinetic [place]-Tip Hypokinetic This report has been electronically signed by: Gibson Rooney MD 02/01/2019 13:30:01 Images reviewed and interpretation verified [facility] Cardiac Ultrasound Laboratory Anabel Duncan MD ECHO ORDERABLES * (ABNORMAL) Troponin (02/01/2019 7:40 AM EDT) Troponin-T 0.08(H) 0.00 - 0.00 ng/mL [facility] ischemia ?? New or presumed new significant XE-updkylc-K wave (ST-T) changes or new left bundle [...] additional sample may be indicated. Reference: Third Tyner Definition of Myocardial Infarction. Journal of the [place] [employer] 2012;60:1581-98 Blood specimen (specimen) 02/01/2019 7:40 AM EDT 02/01/2019 7:47 AM EDT Narrative Resulting Agency Comment Spec In Lab Nadia Haider APRN CHEMISTRY ORDERABL ES [facility] [place] [address] * (ABNORMAL) Differential, Automated (02/01/2019 7:40 AM EDT) Neutrophil % 77.0 % [facility] Neutrophil Absolute 7.40(H) 1.70 - 6.10 x10(3)/mc L [facility] Lymph % 13.0 % [facility] Lymphocytes Abs 1.2 0.9 - 3.2 x10(3)/mc L [facility] Monocyte % 8.1 % [facility] Monocyte Abs 0.8 0.3 - 0.9 x10(3)/ L [facility] Eos % 1.2 % [facility] Eosinophils Abs 0.1 0.0 - 0.4 x10(3)/[facility] Basophil % 0.5 % [facility] Baso Absolute 0.0 0.0 - 0.1 x10(3)/mc L [facility] Immature Gran % 0.20 % [facility] Comment: Immature granulocytes(IG's)percentage and absolute count will include metamyelocytes, myelocytes, and promyelocytes. Blood smears from CBCs yielding IG's will be scanned manually for concordance. If this scan disagrees with the automated IG or if promyelocytes are noted, a manual differential will be performed. Immature Gran Absolute 0.02 0.00 - 0.04 x10(3)/mc L [facility] Blood specimen (specimen) 02/01/2019 7:40 AM EDT 02/01/2019 7:47 AM EDT Narrative Resulting Agency Comment Spec In Lab Anabel Duncan MD HEMATOLOGY ORDERABLE S [facility] [place] [address] * (ABNORMAL) Hemogram (02/01/2019 7:40 AM EDT) White Blood Cell 9.6(H) 4.0 - 9.5 x10(3)/mc L [facility] Red Blood Cell 4.50(L) 4.58 - 5.54 x10(6)/mc L [facility] Hemoglobin 14.0 13.7 - 16.5 gm/dL [facility] Hematocrit 41.2 40.5 - 48.5 % [facility] Mean Cell Volume 91.6 82.9 - 93.1 fL [facility] Mean Cell Hemoglobin 31.1 27.5 - 32.1 pg [facility] Mean Cell Hemoglobin Concentration 34.0 32.0 - 35.7 gm/dL [facility] Platelet 206 145 - 357 x10(3)/mc L [facility] RDW Standard Deviation 45.5(H) 36.0 - 45.0 fL [facility] RDW coefficient of variation 13.9(H) 11.4 - 13.8 % [facility] Mean Platelet Volume 10.0 7.6 - 12.9 fL [facility] NRBC% auto 0.0 % [facility] NRBC Absolute 0.000 0.000 - 0.000 x10(3)/mc L [facility] Blood specimen (specimen) 02/01/2019 7:40 AM EDT 02/01/2019 7:47 AM EDT Narrative Resulting Agency Comment Spec In Lab Anabel Duncan MD HEMATOLOGY ORDERABLE S [facility] [place] [address] * POCT Glucose (02/01/2019 6:22 AM EDT) Pathologist [facility] Glucose, POC 121 65 - 199 mg/dL [facility] Comment: Supplemental ranges: <140 mg/dL before meals <180 mg/dL all other times of the day Blood specimen (specimen) 02/01/2019 6:22 AM EDT 02/01/2019 6:22 AM EDT Anabel Duncan MD POINT OF CARE TEST O TED [facility] [place] [address] * (ABNORMAL) BLOOD GAS 2 ARTERIAL (02/01/2019 4:14 AM EDT) [facility] pH, Arterial 7.46(H) 7.35 - 7.45 [facility] PCO2, Arterial 33(L) 35 - 45 mmHg [facility] PO2, Arterial 122(H) 85 - 104 mmHg [facility] Bicarbonate, Arterial 22.9 20.0 - 26.0 mmol/L [facility] Base Excess, Arterial -1.0 -3.0 - 3.0 mmol/L [facility] Hgb Blood Gas 14.9 13.7 - 16.5 gm/dL [facility] Oxyhemoglobin, Arterial 97.4(H) 94.0 - 97.0 % [facility] Carboxyhemoglob in, Arterial 0.7 % [facility] Comment: Nonsmokers: 0.5-1.5% COHB Smokers: Variable, but usually less than 10% Toxic: 20-30% COHB Lethal: Greater than 60% COHB Methemoglobin, Arterial 0.3 <=1.5 % [facility] Na Whole Blood 134(L) 135 - 145 mmol/L [facility] K Whole Blood 3.7 3.5 - 5.0 mmol/L [facility] Comment: Please note: Patients with WBC >100,000 may have falsely elevated Potassium levels. Contact the Clinical Chemistry Laboratory if there are any questions. ICa Whole Blood 1.16 1.15 - 1.33 mmol/L [facility] Comment: Note: ??Total bilirubin higher than 20 mg/dL may lead to falsely low ionized calcium. CL Whole Blood 103 98 - 107 mmol/L [facility] Gluc Whole Bld 126 65 - 199 mg/dL [facility] Comment:Diabetes: >=200 mg/d L plus symptoms. Lactate WB 1.6 0.5 - 2.2 mmol/L [facility] FIO2 Art 60 % [facility] PF Ratio Art 203 [facility] Blood specimen (specimen) 02/01/2019 4:14 AM EDT 02/01/2019 4:14 AM EDT Anabel Duncan MD POINT OF CARE TEST O RDERABLES [facility] [place] [address] * Heparin (unfractionated) Level (02/01/2019 3:10 AM EDT) UF Heparin 0.17 IU/mL [facility] Comment: Guidelines for therapeutic unfractionated [...] Lab Anabel Duncan MD HEMATOLOGY ORDERABLE S [facility] [place] [address] * (ABNORMAL) Differential, Automated (02/01/2019 3:10 AM EDT) Neutrophil % 77.6 % [facility] Neutrophil Absolute 8.18(H) 1.70 - 6.10 x10(3)/ L [facility] Lymph % 11.9 % [facility] Lymphocytes Abs 1.2 0.9 - 3.2 x10(3)/ L [facility] Monocyte % 8.5 % [facility] Monocyte Abs 0.9 0.3 - 0.9 x10(3)/ L [facility] Eos % 1.2 % [facility] Eosinophils Abs 0.1 0.0 - 0.4 x10(3)/ L [facility] Basophil % 0.4 % [facility] Baso Absolute [...] Absolute 0.04 0.00 - 0.04 x10(3)/mc L [facility] Blood specimen (specimen) 02/01/2019 3:10 AM EDT 02/01/2019 3:20 AM EDT Narrative Resulting Agency Comment Spec In Lab Anabel Duncan MD HEMATOLOGY ORDERABLE S [facility] [place] [address] * (ABNORMAL) Hemogram (02/01/2019 3:10 AM EDT) White Blood Cell 10.5(H) 4.0 - 9.5 x10(3)/mc L [facility] Red Blood Cell 4.33(L) 4.58 - 5.54 x10(6)/mc L [facility] Hemoglobin 13.5(L) 13.7 - 16.5 gm/dL [facility] Hematocrit 39.7(L) 40.5 - 48.5 % [facility] Mean Cell Volume 91.7 82.9 - 93.1 fL [facility] Mean Cell Hemoglobin 31.2 27.5 - 32.1 pg [facility] Mean Cell Hemoglobin Concentration 34.0 32.0 - 35.7 gm/dL [facility] Platelet 215 145 - 357 x10(3)/mc L [facility] RDW Standard Deviation 45.5(H) 36.0 - 45.0 fL [facility] RDW coefficient of variation 13.8 11.4 - 13.8 % [facility] Mean Platelet Volume 10.0 7.6 - 12.9 fL [facility] NRBC% auto 0.0 % [facility] NRBC Absolute 0.000 0.000 - 0.000 x10(3)/mc L [facility] Blood specimen (specimen) 02/01/2019 3:10 AM EDT 02/01/2019 3:20 AM EDT Narrative Resulting Agency Comment Spec In Lab Anabel Duncan MD HEMATOLOGY ORDERABLE S [facility] [place] [address] * (ABNORMAL) Basic Metabolic Panel (non-fasting) (02/01/2019 3:10 AM EDT) Glucose 116 65 - 199 mg/dL [facility] Comment:Diabetes: >=200 mg/d L plus symptoms Blood Urea Nitrogen 29(H) 10 - 20 mg/dL [facility] Creatinine 1.66(H) 0.80 - 1.50 mg/dL [facility] Sodium 140 135 - 145 mmol/L [facility] questions. Chloride 108(H) 98 - 107 mmol/L [facility] Carbon Dioxide 21(L) 22 - 31 mmol/L [facility] Anion Gap 11 5 - 15 mmol/L [facility] Calcium 7.1(L) 8.5 - 10.5 mg/dL [facility] Comment:result rechecked- Est Glomerular Filtration Rate 41(L) >=60 mL/min/1. 73 m?? [facility] Comment: The eGFR was calculated using the CKD-EPI equation. As with all creatinine based estimates of kidney function, eGFR values calculated with the CKD-EPI equation are not accurate in patients with acute kidney failure, extremes of body mass or the acutely ill. [email or web address] [email or web address] eGFR 48(L) >=60 mL/min/1. 73 m?? [facility] Comment: The eGFR was calculated using the CKD-EPI equation. As with all creatinine based estimates of kidney function, eGFR values calculated with the CKD-EPI equation are not accurate in patients with acute kidney failure, extremes of body mass or the acutely ill. [email or web address] Blood specimen (specimen) 02/01/2019 3:10 AM EDT 02/01/2019 3:20 AM EDT Narrative Resulting Agency Comment Spec In Lab Anabel Duncan MD CHEMISTRY ORDERABLES Performing Organization Address City/[facility]/ZIP Co de Phone Number [facility] [place] [address] * EKG 12 Lead (02/01/2019 1:00 AM EDT) Ventricular rate 63 BPM MUSE SYSTEM Atrial Rate 63 BPM MUSE SYSTEM P-R Interval 184 ms MUSE SYSTEM QRS Duration 108 ms MUSE SYSTEM Q-T Interval 442 ms MUSE SYSTEM QTC Calculated (Bezet) 452 ms MUSE SYSTEM Calculated P Cunningham 72 degrees MUSE SYSTEM Calculated R Cunningham -54 degrees MUSE SYSTEM Calculated T Cunningham 118 degrees MUSE SYSTEM INTERPRETATION Sinus rhythm with Premature atrial complexes Left axis deviation ST & T wave abnormality, consider anterolateral ischemia Abnormal ECG When compared with ECG of 31-JAN-2019 18:31, (unconfirmed) Atrial bigeminy is no longer present Confirmed by MD Jonatan, Guille Almonte ([id number]) on 02/01/2019 3:56:21 PM MUSE SYSTEM 02/01/2019 1:00 AM EDT 02/01/2019 3:56 PM EDT Nadia Haider APRN ECG ORDERABLES Performing Organization Address [facility] Co de Phone Number MUSE SYSTEM * (ABNORMAL) Troponin (01/31/2019 11:33 PM EDT) Pathologist [facility] Troponin-T 0.07(H) 0.00 - 0.00 ng/mL [facility] ischemia ?? New or presumed new significant VA-uacpwxo-V wave (ST-T) changes or new left bundle [...] additional sample may be indicated. Reference: Third Tyner Definition of Myocardial Infarction. Journal of the [place] [employer] 2012;60:1581-98 Blood specimen (specimen) 01/31/2019 11:33 PM EDT 01/31/2019 11:36 PM EDT Narrative Resulting Agency Comment Spec In Lab Anabel Duncan MD CHEMISTRY ORDERABLES [facility] [place] [address] * XR Chest PA or AP 1 [...] Glucose, POC 145 65 - 199 mg/dL [facility] Comment: Supplemental ranges: <140 mg/dL before meals <180 mg/dL all other times of the day Blood specimen (specimen) 01/31/2019 8:50 PM EDT 01/31/2019 8:50 PM EDT Anabel Duncan MD POINT OF CARE TEST O RDERABLES [facility] [place] [address] * (ABNORMAL) Differential, Automated (01/31/2019 8:36 PM EDT) Neutrophil % 81.4 % [facility] Neutrophil Absolute 9.84(H) 1.70 - 6.10 x10(3)/ L [facility] Lymph % 8.6 % [facility] Lymphocytes Abs 1.0 0.9 - 3.2 x10(3)/ L [facility] Monocyte % 8.5 % [facility] Monocyte Abs 1.0(H) 0.3 - 0.9 x10(3)/[facility] Eos % 0.8 % [facility] Eosinophils Abs 0.1 0.0 - 0.4 x10(3)/[facility] Basophil % 0.3 % [facility] Baso Absolute 0.0 0.0 - 0.1 x10(3)/[facility] Immature Gran % 0.40 % [facility] Comment: Immature granulocytes(IG's)percentage and absolute count will include metamyelocytes, myelocytes, and promyelocytes. Blood smears from CBCs yielding IG's will be scanned manually for concordance. If this scan disagrees with the automated IG or if promyelocytes are noted, a manual differential will be performed. Immature Gran Absolute 0.05(H) 0.00 - 0.04 x10(3)/[facility] Blood specimen (specimen) 01/31/2019 8:36 PM EDT 01/31/2019 8:40 PM EDT Narrative Resulting Agency Comment Spec In Lab Anabel Duncan MD HEMATOLOGY ORDERABLE S [facility] [place] [address] * (ABNORMAL) Hemogram (01/31/2019 8:36 PM EDT) White Blood Cell 12.1(H) 4.0 - 9.5 x10(3)/ L [facility] Red Blood Cell 4.84 4.58 - 5.54 x10(6)/mc L [facility] Hemoglobin 15.2 13.7 - 16.5 gm/dL [facility] Hematocrit 44.7 40.5 - 48.5 % [facility] Mean Cell Volume 92.4 82.9 - 93.1 fL [facility] Mean Cell Hemoglobin 31.4 27.5 - 32.1 pg [facility] Mean Cell Hemoglobin Concentration 34.0 32.0 - 35.7 gm/dL [facility] Platelet 238 145 - 357 x10(3)/[facility] RDW Standard Deviation 45.2(H) 36.0 - 45.0 [facility] RDW coefficient of variation 13.6 11.4 - 13.8 % [facility] Mean Platelet Volume 9.3 7.6 - 12.9 [facility] NRBC% auto 0.0 % [facility] NRBC Absolute 0.000 0.000 - 0.000 x10(3)/[facility] Blood specimen (specimen) 01/31/2019 8:36 PM EDT 01/31/2019 8:40 PM EDT Narrative Resulting Agency Comment Spec In Lab Anabel Duncan MD HEMATOLOGY ORDERABLE S [facility] [place] [address] * Heparin (unfractionated) Level (01/31/2019 8:36 PM EDT) UF Heparin <0.04 IU/mL [facility] Comment: Guidelines for therapeutic unfractionated [...] MD HEMATOLOGY ORDERABLE S Performing Organization Address City/[facility] HEALTH CARE SERVICES Co de Phone Number [facility] [place] [place] [address] * EKG 12 Lead (01/31/2019 4:28 PM EDT) Ventricular rate 70 BPM MUSE SYSTEM Atrial Rate 70 BPM MUSE SYSTEM P-R Interval 218 ms MUSE SYSTEM QRS Duration 106 ms MUSE SYSTEM Q-T Interval 416 ms MUSE SYSTEM QTC Calculated (Bezet) 449 ms MUSE SYSTEM Calculated P Cunningham 46 degrees MUSE SYSTEM Calculated R Cunningham -61 degrees MUSE SYSTEM Calculated T Cunningham 131 degrees MUSE SYSTEM INTERPRETATION Sinus rhythm with 1st degree A-V block Occasional Premature ventricular complexes and Premature atrial complexes Left axis deviation ST & T wave abnormality, consider anterolateral ischemia Abnormal ECG When compared with ECG of 31-JAN-2019 11:21, (unconfirmed) Sinus rhythm has replaced Atrial flutter T wave inversion now evident in Anterior leads Confirmed by MD Jonatan, Guille Almonte ([id number]) on 02/01/2019 3:45:40 PM MUSE SYSTEM 01/31/2019 4:28 PM EDT 02/01/2019 3:45 PM EDT Anabel Duncan MD ECG ORDERABLES MUSE SYSTEM * CK (01/31/2019 4:20 PM EDT) Creatine Kinase 127 0 - 200 unit/L [facility] Blood specimen (specimen) Venous Draw / Unknown 01/31/2019 4:20 PM EDT 01/31/2019 6:02 PM EDT Narrative Resulting Agency Comment Spec In Lab Anabel Duncan MD CHEMISTRY ORDERABLES [facility] [place] [address] * Lavender Tube HOLD (01/31/2019 4:20 PM EDT) Pathologist [facility] Lavender Hold Sample in lab. [facility] Blood specimen (specimen) Venous Draw / Unknown 01/31/2019 4:20 PM EDT 01/31/2019 4:37 PM EDT Rocky Wong MD HEMATOLOGY ORDERABL ES Performing Organization Address [facility] Co de Phone Number [facility] [place] [address] * (ABNORMAL) Basic Metabolic Panel (non-fasting) (01/31/2019 4:20 PM EDT) Glucose 131 65 - 199 mg/dL [facility] Comment:Diabetes: >=200 mg/d L plus symptoms Blood Urea Nitrogen 28(H) 10 - 20 mg/dL [facility] Creatinine 2.12(H) 0.80 - 1.50 mg/dL [facility] Sodium 139 135 - 145 mmol/L [facility] Potassium 3.9 3.5 - 5.0 mmol/L [facility] Comment: Please note: ??Patients with WBC >100,000 may have falsely elevated Potassium levels. ??For accurate Potassium quantification in these patients send serum separator tube (gold top) for subsequent determinations. ??Contact the Clinical Chemistry Laboratory if there are any questions. Chloride 100 98 - 107 mmol/L [facility] Carbon Dioxide 27 22 - 31 mmol/L [facility] Anion Gap 12 5 - 15 mmol/L [facility] Calcium 9.6 8.5 - 10.5 mg/dL [facility] Est Glomerular Filtration Rate 31(L) >=60 mL/min/1. 73 m?? [facility] Comment: The eGFR was calculated using the CKD-EPI equation. As with all creatinine based estimates of kidney function, eGFR values calculated with the CKD-EPI equation are not accurate in patients with acute kidney failure, extremes of body mass or the acutely ill. http://[employer]/Open CSnkf eGFR 35(L) >=60 mL/min/1. 73 m?? [facility] Comment: The eGFR was calculated using the CKD-EPI equation. As with all creatinine based estimates of kidney function, eGFR values calculated with the CKD-EPI equation are not accurate in patients with acute kidney failure, extremes of body mass or the acutely ill. http://[employer]/DHMCnkf Blood specimen (specimen) 01/31/2019 4:20 PM EDT 01/31/2019 4:37 PM EDT Narrative Resulting Agency Comment Spec In Lab Anabel Duncan MD CHEMISTRY ORDERABLES Performing Organization Address City/State/[facility] Co de Phone Number [facility] [place] [address] * (ABNORMAL) Troponin (01/31/2019 4:20 PM EDT) Troponin-T 0.04(H) 0.00 - 0.00 ng/mL [facility] Comment: Called by: MANE, Read back [...] ischemia ?? New or presumed new significant YS-furimdc-T wave (ST-T) changes or new left bundle [...] additional sample may be indicated. Reference: Third Tyner Definition of Myocardial Infarction. Journal of the [place] [employer] 2012;60:1581-98 Blood specimen (specimen) 01/31/2019 4:20 PM EDT 01/31/2019 4:37 PM EDT Narrative Resulting Agency Comment Spec In Lab Mundo Yeung MD CHEMISTRY ORDERABLES [facility] [place] [address] * US Renal Transplant Left (01/31/2019 2:34 [...] 02:47 pm) PATIENT INFO: ID #: ? [id number] ? : 46 (68 yrs) Name: ? ETHEL BOLDEN ? Visit Date:01/31/2019 02:30 pm PERFORMED BY: Performed By: ? Osmar Dowd RDMS Attending: ?Jolly Payne MD Referred By: ?MUNDO YEUNG Location: ? [facility] SERVICE(S) PROVIDED: ??URTPL - Renal Transplant - Left - [id number] ?[id number] INDICATIONS: ??h/o kidney transplant in 2016. decreased [...] ?Patent Mid: ? Patent Distal: ?Patent LEFT Shawnee Iliac ? Waveform ?? Artery To Anastomos ?is Proximal: ?Patent LEFT [place] Iliac ? Waveform ?Vein To Anastomos ?is Proximal: ?Patent PARENCHYMAL EVALUATION: RIGHT ?Arcuate ? RI ??Waveform ?Artery Upper Pole: ?0.6 Patent Mid Pole: ?0.6 Patent Lower Pole: ?0.6 Patent URINARY BLADDER: Comment: ?Partially distended and unremarkable. Procedure Note Jolly Payne MD - 01/31/2019 Transplant (Signed Final 01/31/2019 02:47pm) PATIENT INFO: ID #: [id number] : 46 (68 yrs) Name: ETHEL MERIDARAMÓN Visit Date:01/31/2019 02:30 pm PERFORMED BY: Performed By: Osmar Dowd RDMS Attending: Jolly Payne MD Referred By: MUNDO YEUNG Location: [facility] SERVICE(S) PROVIDED: URTPL - Renal Transplant - Left - [id number] INDICATIONS: h/o kidney transplant in 2016. decreased [...] Proximal: Patent Mid: Patent Distal: Patent LEFT Shawnee Iliac Waveform Artery To Anastomos is Proximal: Patent LEFT [place] Iliac Waveform Vein To Anastomos is Proximal: [...] /HPF [facility] WBC, Urine 1 0 - 3 /HPF [facility] Urine specimen (specimen) 01/31/2019 11:57 AM EDT 01/31/2019 12:34 PM EDT Narrative Resulting Agency Comment Spec In Lab Rocky Wong MD URINE ORDERABLES [facility] [place] [address] * Gold Tube HOLD (01/31/2019 11:57 AM EDT) Gold Hold Sample in lab. [facility] Blood specimen (specimen) Venous Draw / Unknown 01/31/2019 11:57 AM EDT 01/31/2019 12:31 PM EDT Rocky Wong MD CHEMISTRY ORDERABLE S Performing Organization Address City/[facility]/ZIP Co de Phone Number [facility] [place] [address] * Blue Tube HOLD (01/31/2019 11:57 AM EDT) Blue Hold Sample in lab. [facility] Blood specimen (specimen) Venous Draw / Unknown 01/31/2019 11:57 AM EDT 01/31/2019 12:32 PM EDT Rocky Wong MD HEMATOLOGY ORDERABL ES [facility] [place] [address] * (ABNORMAL) Differential, Automated (01/31/2019 11:57 AM EDT) Neutrophil % 74.9 % [facility] Neutrophil Absolute 8.74(H) 1.70 - 6.10 x10(3)/mc L [facility] Lymph % 15.8 % [facility] Lymphocytes Abs 1.8 0.9 - 3.2 x10(3)/mc L [facility] Monocyte % 7.6 % [facility] Monocyte Abs 0.9 0.3 - 0.9 x10(3)/mc L [facility] Eos % 1.0 % [facility] Eosinophils Abs 0.1 0.0 - 0.4 x10(3)/mc L [facility] Basophil % 0.4 % [facility] Baso Absolute 0.0 0.0 - 0.1 x10(3)/mc L [facility] Immature Gran % 0.30 % [facility] Comment: Immature granulocytes(IG's)percentage and absolute count will include metamyelocytes, myelocytes, and promyelocytes. Blood smears from CBCs yielding IG's will be scanned manually for concordance. If this scan disagrees with the automated IG or if promyelocytes are noted, a manual differential will be performed. Immature Gran Absolute 0.04 0.00 - 0.04 x10(3)/mc L [facility] Blood specimen (specimen) 01/31/2019 11:57 AM EDT 01/31/2019 12:30 PM EDT Narrative Resulting Agency Comment Spec In Lab Rocky Wong MD HEMATOLOGY ORDERABL ES [facility] [place] [address] * (ABNORMAL) Hemogram (01/31/2019 11:57 AM EDT) White Blood Cell 11.7(H) 4.0 - 9.5 x10(3)/mc L [facility] Red Blood Cell 5.41 4.58 - 5.54 x10(6)/mc L [facility] Hemoglobin 17.0(H) 13.7 - 16.5 gm/dL [facility] Hematocrit 49.8(H) 40.5 - 48.5 % [facility] Mean Cell Volume 92.1 82.9 - 93.1 fL [facility] Mean Cell Hemoglobin 31.4 27.5 - 32.1 pg [facility] Mean Cell Hemoglobin Concentration 34.1 32.0 - 35.7 gm/dL [facility] Platelet 295 145 - 357 x10(3)/mc L [facility] RDW Standard Deviation 46.0(H) 36.0 - 45.0 fL [facility] RDW coefficient of variation 13.9(H) 11.4 - 13.8 % [facility] Mean Platelet Volume 9.9 7.6 - 12.9 fL [facility] NRBC% auto 0.0 % [facility] NRBC Absolute 0.000 0.000 - 0.000 x10(3)/mc L [facility] Blood specimen (specimen) 01/31/2019 11:57 AM EDT 01/31/2019 12:30 PM EDT Narrative Resulting Agency Comment Spec In Lab Rocky Wong MD HEMATOLOGY ORDERABL ES [facility] [place] [address] * Electrolytes, urine, random (01/31/2019 11:57 AM EDT) Sodium, Urine <20 mmol/L [facility] Potassium, Urine 39 mmol/L [facility] Chloride, Urine <20 mmol/L [facility] Urine specimen (specimen) 01/31/2019 11:57 AM EDT 01/31/2019 12:34 PM EDT Narrative Resulting Agency Comment Spec In Lab Mundo Yeung MD URINE ORDERABLES [facility] [place] [address] * (ABNORMAL) Troponin (01/31/2019 11:57 AM EDT) Troponin-T 0.03(H) 0.00 - 0.00 ng/mL [facility] Comment: Called by: GIACOMO, Read back [...] ischemia ?? New or presumed new significant TK-uamprqv-K wave (ST-T) changes or new left bundle [...] additional sample may be indicated. Reference: Third Tyner Definition of Myocardial Infarction. Journal of the [place] [employer]iology 2012;60:1581-98 Blood specimen (specimen) 01/31/2019 11:57 AM EDT 01/31/2019 12:30 PM EDT Narrative Resulting Agency Comment Spec In Lab Mundo Yeung MD CHEMISTRY ORDERABLES Performing Organization Address City/[facility]/ZIP Co de Phone Number [facility] [place] [address] * (ABNORMAL) Urinalysis with reflex Culture (01/31/2019 [...] CENTER LABOR[facility]ORY Leukocytes, Urine Dipstick Negative Negative [facility] Appearance, Urine Dipstick Clear Clear [facility] Specific [place] Urine Automated 1.023 1.002 - 1.030 [facility] Color, Urine Dipstick Yellow Yellow [facility] Reflex to Culture No [facility] Urine specimen (specimen) 01/31/2019 11:57 AM EDT 01/31/2019 12:34 PM EDT Narrative Resulting Agency Comment Spec In Lab Mundo Yeung MD URINE ORDERABLES Performing Organization Address City/[facility]/ZIP Co de Phone Number [facility] [place] [address] * (ABNORMAL) Basic Metabolic Panel (non-fasting) (01/31/2019 11:57 AM EDT) Glucose 151 65 - 199 mg/dL [facility] Comment:Diabetes: >=200 mg/d L plus symptoms Blood Urea Nitrogen 29(H) 10 - 20 mg/dL [facility] Creatinine 1.82(H) 0.80 - 1.50 mg/dL [facility] Sodium 136 135 - 145 mmol/L [facility] Potassium 4.1 3.5 - 5.0 mmol/L [facility] Comment: Please note: ??Patients with WBC >100,000 may have falsely elevated Potassium levels. ??For accurate Potassium quantification in these patients send serum separator tube (gold top) for subsequent determinations. ??Contact the Clinical Chemistry Laboratory if there are any questions. Chloride 96(L) 98 - 107 mmol/L [facility] Carbon Dioxide 26 22 - 31 mmol/L [facility] Anion Gap 14 5 - 15 mmol/L [facility] Calcium 10.1 8.5 - 10.5 mg/dL [facility] [...] of body mass or the acutely ill. http://[employer]/[facility] MUSKOGEEnkf eGFR 43(L) >=60 mL/min/1. 73 m?? [facility] Comment: The eGFR was calculated using the CKD-EPI equation. As with all creatinine based estimates of kidney function, eGFR values calculated with the CKD-EPI equation are not accurate in patients with acute kidney failure, extremes of body mass or the acutely ill. http://[employer]/[facility]GEEnkf Blood specimen (specimen) 01/31/2019 11:57 AM EDT 01/31/2019 12:30 PM EDT Narrative Resulting Agency Comment Spec In Lab Mundo Yeung MD CHEMISTRY ORDERABLES [facility] [place] [address] * EKG 12 Lead (01/31/2019 11:21 AM EDT) Ventricular rate 147 BPM MUSE SYSTEM Atrial Rate 294 BPM MUSE SYSTEM QRS Duration 100 ms MUSE SYSTEM Q-T Interval 334 ms MUSE SYSTEM QTC Calculated (Bezet) 522 ms MUSE SYSTEM Calculated R Cunningham -58 degrees MUSE SYSTEM Calculated T Cunningham 68 degrees MUSE SYSTEM INTERPRETATION Atrial flutter with 2:1 A-V conduction Left anterior fascicular block Nonspecific ST and T wave abnormality Abnormal ECG When compared with ECG of 04-NOV-2017 12:43, Significant changes have occurred Confirmed by MD SARA, LARRY ([id number]) on 01/31/2019 5:35:44 PM MUSE SYSTEM 01/31/2019 11:2 1 AM EDT 01/31/2019 5:35 PM EDT Mundo Yeung MD ECG ORDERABLES Performing Organization Address City/[facility] Co de Phone Number MUSE SYSTEM documented [...] PRN, Starting on Thu01/31/19 at 1856, Until Thu02/05/19 at 1804, Nausea, Vomiting, Routine Given 01/31/2019 [...] Emmy Purdy RN)1738 (Given - Provider: Emmy Purdy RN)2158 (Given - Provider: Jovanna Abrams, JADEN) 0929 (Given - Provider: Shannan Aguillon RN)1549 (Given - Provider: Shannan Aguillon RN) aspirin chewable tablet 81 mg 81 mg, Oral, DAILY, First dose on Thu02/01/19 at 1045, Until Discontinued, Routine 0916 (Given - Provider: Barron Epstein RN) 0826 (Given - Provider: Emmy A Purdy, RN) 0930 (Given - Provider: Shannan Aguillon, JADEN) atorvastatin (LIPITOR) tablet 40 mg 40 mg, Oral, EVERY EVENING, First dose on Thu02/01/19 at 1045, Until Discontinued, Routine 1707 (Given - Provider: Emmy Purdy RN) 1738 (Given - Provider: Emmy Purdy, JADEN) calciTRIol (ROCALTROL) capsule 0.5 mcg 0.5 mcg, Oral, EVERY OTHER DAY, First dose on Thu01/31/19 at 1930, Until Discontinued, Routine 0824 (Given - Provider: Emmy Purdy, JADEN) clopidogrel (PLAVIX) tablet 75 mg 75 mg, Oral, DAILY, First dose on Thu02/01/19 at 0900, Until Discontinued, Routine 0916 (Given - Provider: Barron Epstein RN) 08 (Given - Provider: Emmy Purdy RN) 09 (Given - Provider: Shannan Aguillon, JADEN) [...] if patient is not eating. , Routine 09 (Given - Provider: Barron Epstein RN) 08 (Given - Provider: Emmy Purdy RN) 0936 (Given - Provider: Shannan Aguillon, JADEN) insulin lispro (HumaLOG) VIAL injection 1-4 [...] Barron Epstein RN)1711 (Given - Provider: Emmy Purdy, RN) 0703 (Given - Provider: Betzaida Sparks [...] 0245, STAT 0245 (Given - Provider: Bryn Crowe, JADEN) levothyroxine (SYNTHROID) tablet 137 mcg 137 mcg, Oral, DAILY, First dose on Thu02/01/19 at 0900, Until Discontinued, Routine 0949 (Given - Provider: Barron Epstein RN) 0826 (Given - Provider: Emmy Purdy, JADEN) 0928 [...] Bryn Crowe, JADEN)0600 (Given - Provider: Bryn Crowe RN)1150 (Given - Provider: Barron Epstein RN)1708 (Given - Provider: Emmy Purdy RN)2319 (Given - Provider: Betzaida Sparks, JADEN) 0612 (Not Given - Provider: Betzaida Sparks RN - Reason: Order parameters not met - Comment: HR <55)1212 (Given - Provider: Emmy Purdy, RN)1749 (Given - Provider: Emmy Purdy, JADEN)2337 (Given - Provider: Jovanna Abrams, JADEN) 0607 (Given - Provider: Jovanna Abrams, JADEN) mycophenolate (CELLCEPT) capsule 250 mg 250 mg, Oral, 2 TIMES DAILY, First dose on Thu01/31/19 at 2100, Until Discontinued, DO NOT CRUSH OR OPEN Administer to patient on empty stomach (1 hour before or two hours after a meal)., Routine 0920 (Given - Provider: Barron Epstein RN)2040 (Given - Provider: Betzaida Sparks RN) 0823 (Given - Provider: Emmy Purdy RN)2159 (Given - Provider: Jovanna Abrams, JADEN) 0936 (Given - Provider: Shannan Aguillon, JADEN) pantoprazole (PROTONIX) tablet 40 mg 40 [...] then stir and give to patient., Routine 09 (Given - Provider: Barron Epstein, RN)2039 (Given - Provider: Betzaida Sparks, RN) 823 (Given - Provider: Emmy Purdy, RN)2157 (Given - Provider: Jovanna Abrams, RN) 928 (Given - Provider: Shannan Aguillon, RN) sodium chloride 0.9 % (flush) flush 5 mL 5 mL, Intravenous, 2 TIMES DAILY, First dose on Thu01/31/19 at 2100, Until Discontinued, Routine 09 (Not Given - Provider: Barron Epstein RN - Reason: Contraindicated)2040 (Given - Provider: Betzaida Sparks, RN) 899 (Given - Provider: Emmy Purdy, RN)2201 (Given - Provider: Jovanna Abrams, RN) 926 (Given - Provider: Shannan Aguillon, RN) tacrolimus (PROGRAF) capsule 1 mg(Linked Group 2) 1 mg, Oral, NIGHTLY, First dose on Thu01/31/19 at 2100, Until Discontinued, Routine 2039 (Given - Provider: Betzaida Sparks, RN) 2200 (Given - Provider: Jovanna Abrams, RN) tacrolimus (PROGRAF) capsule 2 mg(Linked Group 2) 2 mg, Oral, EVERY MORNING, First dose on Thu02/01/19 at 0700, Until Discontinued, Routine 916 (Given - Provider: Barron Epstein, RN) 06 (Given - Provider: Betzaida Sparks, JADEN) 06 (Given - Provider: Jovanna Abrams, JADEN) tamsulosin (FLOMAX) ER capsule 0.4 mg 0.4 mg, Oral, DAILY, First dose on Thu01/31/19 at 1930, Until Discontinued, DO NOT CRUSH OR OPEN, Routine 0916 (Given - Provider: Barron Epstein, JADEN) 08 (Given - Provider: Emmy Purdy, RN) 09 (Given - Provider: Shannan Aguillon, RN) Continuous Medication Order 02/03/2019 02/04/2019 02/05/2019 furosemide (LASIX) 100 mg in sodium chloride 0.9% 100 mL infusion (CANCELED) 10 mg/hr (10 mL/hr), Intravenous, CONTINUOUS, Starting on Laura 02/03/19 at 1630, Until 02/04/19 at 1250, Routine 1833 (New Bag - [...] RN)1449 (New Bag - Provider: Emmy Purdy RN)180 (Rate/Dose Change - Provider: Emmy Purdy RN [...] Routine documented in this encounter Care Teams Metal Bench Patternmaker Relationship Specialty Start Date End Date Urbano Denis DO [address] [facility] [address] [place] [address] PCP - General 09/03/12 03/17/22 Ruchi Valles RN Nurse Clinic Transplant Surgery 07/30/15 documented as of this encounter
--- OUTSIDE RECORDS SUMMARY | 2024-04-04 14:02 | XMS_ITS | Encounter Summary ---
Author Organization [facility] [address] Care Team Providers Care Boilermaker [employer] Name Role Phone Urbano Denis DO Primary Care Provider [phone] Reason for Visit * Auth/Cert Specialty Diagnoses / Procedures Referred By Humberto flor Referred To Contact Diagnoses Paroxysmal atrial fibrillation Atrial fibrillation with RVR Referral ID Status Reason Start Date Expiration Date Visits Re quested Visits Authorized [id number] 1 1 Encounter Details Date Type Department Care Team (Late st Contact Info) Description 01/31/2019 10:20 AM EDT Office Visit [place] [address] Tal Eagle MD [facility] [place] [address] Hypotensive episode; H/O kidney transplant Social History [...] AM EDT Pt sent to ED by Digital Computer Systems Analyst. Symptomatic with c/o of dizziness when standing [...] 1:40 PM EDT Office Visit Cardiology at [address] [phone] Jay Urban MD [facility] [place] [address] 04/15/2024 10:00 AM EDT Hospital Encounter Non-[place] [address] Arrived documented as of this encounter Goals [...] transplant documented in this encounter Care Teams Boilermaker [employer] Relationship Specialty Start Date End Date Urbano Denis DO [address] [place] [address] [place] [address] PCP - General 09/03/12 03/17/22 Ruchi Valles RN Nurse Clinic Transplant Surgery 07/30/15 documented as of this encounter
--- OUTSIDE RECORDS SUMMARY | 2024-04-04 14:02 | XMS_ITS | Encounter Summary ---
Author Organization [facility] [place] [address] Care Team Providers Care Agriculture Laboratory Technician Name Role Phone AdeelUrbano toscano Primary Care Provider [phone] Reason for Visit * Reason Onset Date Comments Medication Refill 01/13/2019 Encounter Details Date Type Department Care Team (Late st Contact Info) Description 01/13/2019 Refill [place] [phone] Tal Eagle MD [facility] [place] [address] Social History Tobacco Use Types Packs/Day Years [...] PM EDT Office Visit Cardiology at [address] [phone] Jay Urban MD [facility] [place] [address] 04/15/2024 10:00 AM EDT Hospital Encounter Non-Invasive [place] [phone] Arrived documented as of this encounter Goals [...] on filedocumented in this encounter Care Teams Agriculture Laboratory Technician Relationship Specialty Start Date End Date Urbano Denis DO [address] [place] [address] [place] [address] PCP - General 09/03/12 03/17/22 Ruchi Valles RN Nurse Clinic Transplant Surgery 07/30/15 documented as of this encounter
--- OUTSIDE RECORDS SUMMARY | 2024-04-04 14:02 | XMS_ITS | Encounter Summary ---
Author Organization [facility] [place] [address] Care Team Providers Care Second Worker Name Role Phone Urbano Denis DO Primary Care Provider [phone] Reason for Visit * Auth/Cert Specialty Diagnoses / Procedures Referred By Humberto flor Referred To Contact Diagnoses Paroxysmal atrial fibrillation Atrial fibrillation with RVR Referral ID Status Reason Start Date Expiration Date Visits Re quested Visits Authorized [id number] 1 1 Encounter Details Date Type Department Care Team (Latest Contact Info) Description 01/31/2019 9:25 AM EDT Laboratory Appointment Lab [address] [place] [address] Kidney replaced by transplant Social [...] PM EDT Office Visit Cardiology at [address] [phone] Jay Urban MD [facility] [place] [address] 04/15/2024 10:00 AM EDT Hospital Encounter Non-[place] [address] Arrived documented as of this [...] 9:46 AM EDT) Neutrophil % 76.5 % [facility] Neutrophil Absolute 8.42(H) 1.70 - 6.10 x10(3)/mc L [facility] Lymph % 14.9 % [facility] Lymphocytes Abs 1.6 0.9 - 3.2 x10(3)/[facility] Monocyte % 7.1 % [facility] Monocyte Abs 0.8 0.3 - 0.9 x10(3)/[facility] Eos % 0.7 % [facility] Eosinophils Abs 0.1 0.0 - 0.4 x10(3)/[facility] Basophil % 0.5 % [facility] Baso Absolute 0.1 0.0 - 0.1 x10(3)/[facility] Immature Gran % 0.30 % [facility] Comment: Immature granulocytes(IG's)percentage and absolute count will include metamyelocytes, myelocytes, and promyelocytes. Blood smears from CBCs yielding IG's will be scanned manually for concordance. If this scan disagrees with the automated IG or if promyelocytes are noted, a manual differential will be performed. Immature Gran Absolute 0.03 0.00 - 0.04 x10(3)/[facility] Blood specimen (specimen) 01/31/2019 9:46 AM EDT 01/31/2019 9:53 AM EDT Narrative Resulting Agency Comment Spec In Lab Tal Eagle MD HEMATOLOGY ORDERA BLES Performing Organization Address City/State/[facility] Co de Phone Number [facility] [place] [address] * (ABNORMAL) Hemogram (01/31/2019 9:46 AM EDT) White Blood Cell 11.0(H) 4.0 - 9.5 x10(3)/[facility] Red Blood Cell 5.39 4.58 - 5.54 x10(6)/[facility] Hemoglobin 17.0(H) 13.7 - 16.5 gm/dL [facility] Hematocrit 49.5(H) 40.5 - 48.5 % [facility] Mean Cell Volume 91.8 82.9 - 93.1 fL [facility] Mean Cell Hemoglobin 31.5 27.5 - 32.1 pg [facility] Mean Cell Hemoglobin Concentration 34.3 32.0 - 35.7 gm/dL [facility] Platelet 270 145 - 357 x10(3)/mc L [facility] RDW Standard Deviation 45.4(H) 36.0 - 45.0 fL [facility] RDW coefficient of variation 13.8 11.4 - 13.8 % [facility] Mean Platelet Volume 10.0 7.6 - 12.9 fL [facility] NRBC% auto 0.0 % [facility] NRBC Absolute 0.000 0.000 - 0.000 x10(3)/mc L [facility] Blood specimen (specimen) 01/31/2019 9:46 AM EDT 01/31/2019 9:53 AM EDT Narrative Resulting Agency Comment Spec In Lab Tal Eagle MD HEMATOLOGY ORDERA BLES [facility] [place] [address] * Cholesterol, total (01/31/2019 9:46 AM EDT) Cholesterol, Total 113 mg/dL [facility] Comment: Lower Risk: <200 mg/dL Average Risk: 200-239 mg/dL Higher Risk: >wb=613 mg/dL Lipid Interpretation See Note [facility] Comment: Lipid management should be guided by a patient? s ASCVD risk, goals and preferences. ACC/AHA Guidelines recommend high intensity statin if clinical ASCVD or LDL greater than or equal to 190 mg/dL. [email or web address] Adults aged 40-75 with LDL 70-189 mg/dL should have their 10 year ASCVD risk estimated with the ACC/AHA ASCVD risk asphalt paving superintendent http://tools.acc.org/IREAW-Rhzi-Pyksuwzub/ Statin should be discussed if risk greater [...] CHEMISTRY ORDERAB LES Performing Organization Address City/[facility] Co de Phone Number [facility] [place] [address] * Magnesium (01/31/2019 9:46 AM EDT) Magnesium 0.76 0.69 - 1.07 mmol/L [facility] Blood specimen (specimen) 01/31/2019 9:46 AM EDT 01/31/2019 9:53 AM EDT Narrative Resulting Agency Comment Spec In Lab Tal Eagle MD CHEMISTRY ORDERAB LES Performing Organization Address [facility] Co de Phone Number [facility] [place] [address] * Phosphorus (01/31/2019 9:46 AM EDT) Phosphorus 3.7 2.5 - 4.5 mg/dL [facility] Blood specimen (specimen) 01/31/2019 9:46 AM EDT 01/31/2019 9:53 AM EDT Narrative Resulting Agency Comment Spec In Lab Tal Eagle MD CHEMISTRY ORDERAB LES Performing Organization Address City/[facility] Co de Phone Number [facility] [place] [address] * (ABNORMAL) Uric acid (01/31/2019 9:46 AM EDT) Uric Acid 11.1(H) 3.5 - 8.5 mg/dL [facility] Blood specimen (specimen) 01/31/2019 9:46 AM EDT 01/31/2019 9:53 AM EDT Narrative Resulting Agency Comment Spec In Lab Tal Eagle MD CHEMISTRY ORDERAB LES [facility] [place] [address] * (ABNORMAL) Comprehensive metabolic panel (non-fasting) (01/31/2019 9:46 AM EDT) Glucose 175 65 - 199 mg/dL [facility] Comment:Diabetes: >=200 mg/d L plus symptoms Blood Urea Nitrogen 30(H) 10 - 20 mg/dL [facility] Creatinine 1.99(H) 0.80 - 1.50 mg/dL [facility] Sodium 136 135 - 145 mmol/L [facility] Potassium 4.5 3.5 - 5.0 mmol/L [facility] Comment: Please note: ??Patients with WBC >100,000 may have falsely elevated Potassium levels. ??For accurate Potassium quantification in these patients send serum separator tube (gold top) for subsequent determinations. ??Contact the Clinical Chemistry Laboratory if there are any questions. Chloride 96(L) 98 - 107 mmol/L [facility] Carbon Dioxide 26 22 - 31 mmol/L [facility] Anion Gap 14 5 - 15 mmol/L [facility] Calcium 10.3 8.5 - 10.5 mg/dL [facility] Protein, Total 7.3 6.1 - 8.0 gm/dL [facility] Albumin 4.3 3.2 - 5.2 gm/dL [facility] Aspartate Aminotransferase 19 0 - 39 unit/L [facility] Alanine Aminotransferase 22 0 - 55 unit/L [facility] Alkaline Phosphatase 68 40 - 130 unit/L [facility] Bilirubin, Total 2.8(H) 0.2 - 1.3 mg/dL [facility] Est Glomerular Filtration Rate 33(L) >=60 mL/min/1. 73 m?? [facility] Comment: The eGFR was calculated using the CKD-EPI equation. As with all creatinine based estimates of kidney function, eGFR values calculated with the CKD-EPI equation are not accurate in patients with acute kidney failure, extremes of body mass or the acutely ill. [email or web address] eGFR 38(L) >=60 mL/min/1. 73 m?? [facility] Comment: The eGFR was calculated using the CKD-EPI equation. As with all creatinine based estimates of kidney function, eGFR values calculated with the CKD-EPI equation are not accurate in patients with acute kidney failure, extremes of body mass or the acutely ill. [email or web address] Blood specimen (specimen) 01/31/2019 9:46 AM EDT 01/31/2019 9:53 AM EDT Narrative Resulting Agency Comment Spec In Lab Tal Eagle MD CHEMISTRY ORDERAB LES [facility] [place] [address] * Tacrolimus level (01/31/2019 9:46 AM EDT) Tacrolimus 6.7 ng/mL [facility] Comment: Trough therapeutic: ??5-15 ng/mL Performed by ultra-performance liquid chromatography tandem mass spectrometry (UPLCMS/MS). This test was developed and its performance characteristics determined by [facility]. It has not been cleared or approved [...] [facility] [place] [address] documented in this encounter Visit Diagnoses Diagnosis Kidney replaced by transplant documented in this encounter Care Teams Second Worker Relationship Specialty Start Date End Date Urbano Denis DO [address] [place] [address] PCP - General 09/03/12 03/17/22 Ruchi Valles RN Nurse Clinic Transplant Surgery 07/30/15 documented as of this encounter
--- OUTSIDE RECORDS SUMMARY | 2024-04-04 14:02 | XMS_ITS | Encounter Summary ---
Author Organization [facility] [address] Care Team Providers Care Vision Therapist Name Role Phone AdeelUrbano toscano Primary Care Provider Encounter Details Date Type Department Care Team (Late st Contact Info) Description 10/07/2018 Notes Only [place] [phone] Jeremiah Betancur, RN Social History [...] PM EDT Office Visit Cardiology at [address] [phone] Jay Urban MD [facility] [place] [address] 04/15/2024 10:00 AM EDT Hospital Encounter Non-Invasive Cardiology Lab [facility] [place] [address] Arrived documented as of this encounter Goals [...] on filedocumented in this encounter Care Teams Vision Therapist Relationship Specialty Start Date End Date Urbano Denis DO [address] [place] [address] PCP - General 09/03/12 03/17/22 Ruchi Valles RN Nurse Clinic Transplant Surgery 07/30/15 documented as of this encounter
--- OUTSIDE RECORDS SUMMARY | 2024-04-04 14:02 | XMS_ITS | Encounter Summary ---
Author Organization [facility] [place] [address] Care Team Providers Care Used Car Make Ready Mechanic Name Role Phone Urbano Denis DO Primary Care Provider [phone] Encounter Details Date Type Department Care Team (Latest Contact Info) Description 09/15/2018 9:40 AM EDT Laboratory Appointment Lab [address] [place] [phone] Kidney replaced by transplant; Vitamin D deficiency [...] PM EDT Office Visit Cardiology at [address] [phone] Jay Urban MD [facility] [place] [address] 04/15/2024 10:00 AM EDT Hospital Encounter Non-Invasive [place] [address] Arrived documented as of this encounter Goals [...] 9:53 AM EDT) Neutrophil % 69.8 % [facility] Neutrophil Absolute 5.87 1.70 - 6.10 x10(3)/[facility] Lymph % 17.8 % [facility] Lymphocytes Abs 1.5 0.9 - 3.2 x10(3)/[facility] Monocyte % 8.4 % [facility] Monocyte Abs 0.7 0.3 - 0.9 x10(3)/[facility] Eos % 2.9 % [facility] Eosinophils Abs 0.2 0.0 - 0.4 x10(3)/[facility] Basophil % 0.7 % [facility] Baso Absolute 0.1 0.0 - 0.1 x10(3)/[facility] Immature Gran % 0.40 % [facility] Comment: Immature granulocytes(IG's)percentage and absolute count will include metamyelocytes, myelocytes, and promyelocytes. Blood smears from CBCs yielding IG's will be scanned manually for concordance. If this scan disagrees with the automated IG or if promyelocytes are noted, a manual differential will be performed. Immature Gran Absolute 0.03 0.00 - 0.04 x10(3)/[facility] Blood specimen (specimen) 09/15/2018 9:53 AM EDT 09/15/2018 10:01 AM EDT Narrative Resulting Agency Comment Spec In Lab Tal Eagle MD HEMATOLOGY ORDERA BLES [facility] [place] [address] * (ABNORMAL) Hemogram (09/15/2018 9:53 AM EDT) White Blood Cell 8.4 4.0 - 9.5 x10(3)/mc L [facility] Red Blood Cell 5.44 4.58 - 5.54 x10(6)/mc L [facility] Hemoglobin 16.4 13.7 - 16.5 gm/dL [facility] Hematocrit 48.8(H) 40.5 - 48.5 % [facility] Mean Cell Volume 89.7 82.9 - 93.1 fL [facility] Mean Cell Hemoglobin 30.1 27.5 - 32.1 pg [facility] Mean Cell Hemoglobin Concentration 33.6 32.0 - 35.7 gm/dL [facility] Platelet 272 145 - 357 x10(3)/mc L [facility] RDW Standard Deviation 41.9 36.0 - 45.0 fL [facility] RDW coefficient of variation 12.9 11.4 - 13.8 % [facility] Mean Platelet Volume 9.7 7.6 - 12.9 fL [facility] NRBC% auto 0.0 % [facility] NRBC Absolute 0.000 0.000 - 0.000 x10(3)/mc L [facility] Blood specimen (specimen) 09/15/2018 9:53 AM EDT 09/15/2018 10:01 AM EDT Narrative Resulting Agency Comment Spec In Lab Tal Eagle MD HEMATOLOGY ORDERA BLES Performing Organization Address City/State/[facility] Co de Phone Number [facility] [place] [address] * BKV Quant Blood (09/15/2018 9:53 AM EDT) BKV Blood Result Not Detected [facility] BKV Blood Interp BK Virus Plasma Result Interpretation Result: BK Virus not detected Specimen type: plasma Assay Range: 2.80-7.80 log copies/mL (6.28x10^2 - 6.28x10^7 copies/mL) Methods: Quantitative real-time polymerase chain reaction (PCR) of viral DNA isolated from plasma was performed using [employer] BKV analyte-specific reagents and the Tribzi System that automates both nucleic acid isolation [...] [facility] [facility] [employer] (CGAT) Laboratory at [facility]. It has not been cleared or approved by the FDA. The laboratory is regulated under CLIA as qualified to perform high-complexity testing. This test is used for clinical purposes. It should not be regarded as investigational or for research. [facility] Comment: [VERIFIED DATE]09.23.18 Verified By:Tal Cleaning (Electronic Signature) Blood specimen (specimen) 09/15/2018 9:53 AM EDT 09/15/2018 11:12 AM EDT Narrative Resulting Agency Comment Spec In Lab Tal Eagle MD MOLECULAR ORDERAB LES Performing Organization Address [facility]/ZIP Co de Phone Number [facility] [place] [address] * (ABNORMAL) 1,25-dihydroxycholecalciferol (09/15/2018 9:53 AM EDT) [facility] Vit D 1,25 Dihydroxy (NOVEMBER) 70(H) 18 - 64 pg/mL [facility] Comment: ADDITIONAL INFORMATION This test was developed and its performance characteristics determined by [facility] in a manner consistent with CLIA requirements. This test has not been cleared or approved by the U.S. Food and Drug Administration. Test Performed by: [facility] - [address] [address] Blood specimen (specimen) 09/15/2018 9:53 AM EDT 09/15/2018 1:05 PM EDT Narrative Resulting Agency Comment Spec In Lab Tal Eagle MD LAB SEND OUT ORDE RABLES Performing Organization Address [facility]/ZIP Co de Phone Number [facility] [place] [address] * (ABNORMAL) CMP w/fasting Glucose (09/15/2018 9:53 AM EDT) [facility] Glucose Fasting 151(H) 65 - 99 mg/dL [place] of Diabetes Mellitus, Position Statement from the [place] Diabetes [employer]. ??Diabetes Care, Volume 33, Supplement 1, Jul 2009 Blood Urea Nitrogen 18 10 - 20 mg/dL [facility] Creatinine 1.23 0.80 - 1.50 mg/dL [facility] Sodium 140 135 - 145 mmol/L [facility] Potassium 3.8 3.5 - 5.0 mmol/L [facility] Comment: Please note: ??Patients with WBC >100,000 may have falsely elevated Potassium levels. ??For accurate Potassium quantification in these patients send serum separator tube (gold top) for subsequent determinations. ??Contact the Clinical Chemistry Laboratory if there are any questions. Chloride 97(L) 98 - 107 mmol/L [facility] Carbon Dioxide 32(H) 22 - 31 mmol/L [facility] Anion Gap 11 5 - 15 mmol/L [facility] Calcium 10.0 8.5 - 10.5 mg/dL [facility] Protein, Total 7.7 6.1 - 8.0 gm/dL [facility] Albumin 4.3 3.2 - 5.2 gm/dL [facility] Aspartate Aminotransferase 20 0 - 39 unit/L [facility] Alanine Aminotransferase 22 0 - 55 unit/L [facility] Alkaline Phosphatase 78 40 - 120 unit/L [facility] Bilirubin, Total 2.9(H) 0.2 - 1.3 mg/dL [facility] Est Glomerular Filtration Rate 59(L) >=60 mL/min/1. 73 m?? [facility] Comment: The eGFR was calculated using the CKD-EPI equation. As with all creatinine based estimates of kidney function, eGFR values calculated with the CKD-EPI equation are not accurate in patients with acute kidney failure, extremes of body mass or the acutely ill. [email or web address] eGFR 69 >=60 mL/min/1. 73 m?? [facility] Comment: The eGFR was calculated using the CKD-EPI equation. As with all creatinine based estimates of kidney function, eGFR values calculated with the CKD-EPI equation are not accurate in patients with acute kidney failure, extremes of body mass or the acutely ill. [email or web address] Blood specimen (specimen) 09/15/2018 9:53 AM EDT 09/15/2018 10:01 AM EDT Narrative Resulting Agency Comment Spec In Lab Tal Eagle MD CHEMISTRY ORDERAB LES Performing Organization Address [facility] Co de Phone Number [facility] [place] [address] * Gold Tube HOLD (09/15/2018 9:53 AM EDT) Gold Hold Sample in lab. [facility] Blood specimen (specimen) 09/15/2018 9:53 AM EDT 09/15/2018 10:00 AM EDT Tal Eagle MD CHEMISTRY ORDERAB LES Performing Organization Address [facility] Co de Phone Number [facility] [place] [address] * (ABNORMAL) Hemoglobin A1c (09/15/2018 9:53 AM EDT) Hemoglobin A1c 6.6(H) 4.3 - 5.6 % [place] [...] Mellitus, Diabetes Care 2013; 36: Suppl. 1, P37-74 Estimated Average Glucose See note mg/dL [facility] [...] into estimated average glucose values. ??Diabetes Care 2008:31(8):1900-1364. Blood specimen (specimen) 09/15/2018 9:53 AM EDT 09/15/2018 10:01 AM EDT Narrative Resulting Agency Comment Spec In Lab Tal Eagle MD CHEMISTRY ORDERAB LES [facility] [place] [address] * Lavender Tube HOLD (09/15/2018 9:53 AM EDT) [facility] Lavender Hold Sample in lab. [facility] Blood specimen (specimen) 09/15/2018 9:53 AM EDT 09/15/2018 10:01 AM EDT Tal Eagle MD HEMATOLOGY ORDERA BLES [facility] [place] [address] * Lipid Panel (09/15/2018 9:53 AM EDT) Cholesterol, Total 151 mg/dL [facility] Comment: Lower Risk: <200 mg/dL Average Risk: 200-239 mg/dL Higher Risk: >ok=250 mg/dL Triglyceride 166 mg/dL [facility] Comment: Average Risk/Lower Risk: <150 mg/dL Borderline High Risk: 150-199 mg/dL High Risk: 200-499 mg/dL Very High Risk: >no=815 mg/dL HDL Cholesterol 40 mg/dL [facility] Comment: Males: ?? Higher Risk: <40 mg/dL Females: ?? HIgher Risk: <50 mg/dL LDL Cholesterol 78 mg/dL [facility] Comment: Lowest Risk: <100 mg/dL Lower Risk: 100-129 mg/dL Borderline High Risk: 130-159 mg/dL High Risk: 160-189 mg/dL Very High Risk: >kr=589 mg/dL Cholesterol/HDL Ratio 3.8 ratio [facility] Lipid Interpretation See Note [facility] Comment: Lipid management should be guided by a patient? s ASCVD risk, goals and preferences. ACC/AHA Guidelines recommend high intensity statin if clinical ASCVD or LDL greater than or equal to 190 mg/dL. http://tinyurl.com/RON-KMJ-Hokxwbklw Adults aged 40-75 with LDL 70-189 mg/dL should have their 10 year ASCVD risk estimated with the ACC/AHA ASCVD risk yardage estimator http://tools.acc.org/UCDOR-Fqjr-Werhqskeu/ Statin should be discussed if risk greater [...] MD CHEMISTRY ORDERAB LES Performing Organization Address [facility] Co de Phone Number [facility] [place] [address] * Magnesium (09/15/2018 9:53 AM EDT) Magnesium 0.71 0.69 - 1.07 mmol/L [facility] Blood specimen (specimen) 09/15/2018 9:53 AM EDT 09/15/2018 10:01 AM EDT Narrative Resulting Agency Comment Spec In Lab Tal Eagle MD CHEMISTRY ORDERAB LES Performing Organization Address [facility] Co de Phone Number [facility] [place] [address] * Phosphorus (09/15/2018 9:53 AM EDT) Phosphorus 3.2 2.5 - 4.5 mg/dL [facility] Blood specimen (specimen) 09/15/2018 9:53 AM EDT 09/15/2018 10:01 AM EDT Narrative Resulting Agency Comment Spec In Lab Tal Eagle MD CHEMISTRY ORDERAB LES Performing Organization Address City/[facility] Co de Phone Number [facility] [place] [address] * (ABNORMAL) PTH (09/15/2018 9:53 AM EDT) Parathyroid Hormone 78(H) 15 - 65 pg/mL [facility] Blood specimen (specimen) 09/15/2018 9:53 AM EDT 09/15/2018 10:01 AM EDT Narrative Resulting Agency Comment Spec In Lab Tal Eagle MD CHEMISTRY ORDERAB LES Performing Organization Address [facility] de Phone Number [facility] [place] [address] * Reticulocyte Count (09/15/2018 9:53 AM EDT) Reticulocyte % 2.0 0.7 - 2.6 % [facility] Retic Abs # 0.110 0.030 - 0.120 x10(6)/mcL [facility] Immature Retic% 8.1 0.0 - 15.6 % [facility] Reticulated Hgb 35.9 31.3 - 40.2 pg [facility] Blood specimen (specimen) 09/15/2018 9:53 AM EDT 09/15/2018 10:01 AM EDT Narrative Resulting Agency Comment Spec In Lab Tal Eagle MD HEMATOLOGY ORDERA BLES Performing Organization Address [facility] de Phone Number [facility] [place] [address] * Tacrolimus level (09/15/2018 9:53 AM EDT) Tacrolimus 7.8 ng/mL [facility] Comment: Trough therapeutic: ??5-15 ng/mL Performed by ultra-performance liquid chromatography tandem mass spectrometry (UPLCMS/MS). This test was developed and its performance characteristics determined by [facility]. It has not been cleared [...] MD CHEMISTRY ORDERAB LES Performing Organization Address City/[facility]/ZIP Co de Phone Number [facility] [place] [address] * Uric acid (09/15/2018 9:53 AM EDT) Uric Acid 8.1 3.5 - 8.5 mg/dL [facility] Blood specimen (specimen) 09/15/2018 9:53 AM EDT 09/15/2018 10:01 AM EDT Narrative Resulting Agency Comment Spec In Lab Tal Eagle MD CHEMISTRY ORDERAB LES Performing Organization Address [facility] Co de Phone Number [facility] [place] [address] * (ABNORMAL) Vitamin D, 25-Hydroxy (09/15/2018 9:53 AM EDT) Vitamin D Total 25 OH 19(L) 30 - 100 ng/mL [facility] Comment: Deficient <10 ng/mL Insufficient 10 to 29 ng/mL Sufficient 30 to 100 ng/mL Potential Intoxication >100 ng/mL According to the [place] National Osteoporosis Foundation, Vitamin D concentrations >30 ng/mL are sufficient to protect bone health. ??The National Kidney Foundation has similarly stated that patients with Vitamin D concentrations <30ng/mL should be considered to be insufficient or deficient. http://DesignCrowd.TopSchool/nkf-guidelines http://[employer].TopSchool/nejm-VitD The [employer] iSYS Vitamin D Immunoassay detects both 25-OH Vitamin D2 and 25-OH Vitamin D3, but only a total Vitamin D concentration is reported. Blood specimen (specimen) 09/15/2018 9:53 AM EDT 09/15/2018 12:08 PM EDT Narrative Resulting Agency Comment Spec In Lab Tal Eagle MD CHEMISTRY ORDERAB LES Performing Organization Address City/[facility]/ZIP Co de Phone Number [facility] [place] [address] * Urinalysis Microscopic Exam (09/15/2018 9:48 AM EDT) RBC, Urine 1 0 - 3 /HPF [facility] WBC, Urine <1 0 - 3 /HPF [facility] Urine specimen obtained by clean catch procedure (specimen) 09/15/2018 9:48 AM EDT 09/15/2018 9:58 AM EDT Narrative Resulting Agency Comment Spec In Lab Tal Eagle MD URINE ORDERABLES Performing Organization Address City/[facility]/ZIP Co de Phone Number [facility] [place] [address] * Calcium Creatinine Ratio, random urine (09/15/2018 9:48 AM EDT) Calcium, Urine 6.5 mg/dL [facility] Creatinine, Urine 117 mg/dL [facility] Calcium / Creatinine Ratio, Urine 0.06 ratio [facility] Urine specimen (specimen) 09/15/2018 9:48 AM EDT 09/15/2018 2:24 PM EDT Narrative Resulting Agency Comment Spec In Lab Tal Eagle MD URINE ORDERABLES Performing Organization Address City/[facility]/ZIP Co de Phone Number [facility] [place] [address] * Magnesium, urine, random (09/15/2018 9:48 AM EDT) Magnesium, Urine 0.84 mmol/L [facility] Urine specimen (specimen) 09/15/2018 9:48 AM EDT 09/15/2018 10:00 AM EDT Narrative Resulting Agency Comment Spec In Lab Tal Eagle MD URINE ORDERABLES Performing Organization Address City/[facility]/ZIP Co de Phone Number [facility] [place] [address] * Phosphorus, urine, random (09/15/2018 9:48 AM EDT) Phosphorus, Urine 71.7 mg/dL [facility] Urine specimen (specimen) 09/15/2018 9:48 AM EDT 09/15/2018 2:24 PM EDT Narrative Resulting Agency Comment Spec In Lab Tal Eagle MD URINE ORDERABLES Performing Organization Address City/[facility]/ZIP Co de Phone Number [facility] [place] [address] * (ABNORMAL) Protein/Creatinine Ratio, urine (09/15/2018 9:48 AM EDT) Creatinine, Urine 117 mg/dL [facility] Protein, Urine 153(H) 0 - 12 mg/dL [facility] Protein / Creatinine Ratio, Urine 1.3 ratio [facility] Urine specimen (specimen) 09/15/2018 9:48 AM EDT 09/15/2018 10:00 AM EDT Narrative Resulting Agency Comment Spec In Lab Tal Eagle MD URINE ORDERABLES Performing Organization Address City/[facility] Co de Phone Number [facility] [place] [address] * (ABNORMAL) Urinalysis with reflex Culture (09/15/2018 [...] [facility] pH, Urn (dipstick) 7.0 5.0 - 8.0 [facility] Blood, Urine Dipstick Negative Negative mg/dL [facility] Ketone, Urine Dipstick Negative Negative mg/dL [facility] Nitrite, Urine Dipstick Negative Negative [facility] Leukocytes, Urine Dipstick Negative Negative [facility] Appearance, Urine Dipstick Clear Clear [facility] Specific [place] Urine Automated 1.021 1.002 - 1.030 [facility] [place] [facility] [...] Eagle MD URINE ORDERABLES Performing Organization Address City/State/[facility] Co de Phone Number [facility] [place] [address] documented in this encounter Visit Diagnoses Diagnosis Kidney replaced by transplant Vitamin D deficiency Unspecified vitamin D deficiency Type 2 diabetes mellitus with complication, without long-term current use of insulin documented in this encounter Care Teams Used Car Make Ready Mechanic Relationship Specialty Start Date End Date Urbano Denis DO [address] [place] [address] PCP - General 09/03/12 03/17/22 Ruchi Valles RN Nurse Clinic Transplant Surgery 07/30/15 documented as of this encounter
--- OUTSIDE RECORDS SUMMARY | 2024-04-04 14:02 | XMS_ITS | Encounter Summary ---
Author Organization [facility] [place] [address] Care Team Providers Care Credentialing Coordinator Name Role Phone AdeelUrbano toscano Primary Care Provider Encounter Details Date Type Department Care Team (Late st Contact Info) Description 12/22/2018 [place] [phone] Yris Johnson RPH Social History [...] PM EDT Office Visit Cardiology at [address] [phone] Jay Urban MD [facility] [place] [address] 04/15/2024 10:00 AM EDT Hospital Encounter Non-Invasive Cardiology Lab [facility] [place] [address] Arrived documented as of this encounter Goals [...] on filedocumented in this encounter Care Teams Credentialing Coordinator Relationship Specialty Start Date End Date Urbano Denis DO [address] [place] [address] PCP - General 09/03/12 03/17/22 Ruchi Valles RN Nurse Clinic Transplant Surgery 07/30/15 documented as of this encounter
--- OUTSIDE RECORDS SUMMARY | 2024-04-04 14:02 | XMS_ITS | Encounter Summary ---
Author Organization [facility] Address [facility] [place] [address] Care Team Providers Care Paper Plate Machine Tender Name Role Phone AdeelUrbano Primary Care Provider + [phone] Reason for Visit * Reason Onset Date Comments Medication Refill Medication Refill 07/27/2018 Encounter Details Date Type Department Care Team (Late st Contact Info) Description 07/27/2018 Refill [place] [address] Tal Eagle MD [facility] [place] [address] Social History Tobacco Use Types Packs/Day Years [...] Miscellaneous Notes * Telephone Encounter - Tim Mlies LPN - 07/27/2018 3:49 PM EST Called pt to verify a Rx refill request received from [facility] in [place]. Pt was vacationing there previously and had run out of Rx, therefore had to have emergency supply sent to local [place] pharmacy. No longer in [place]. Rx supply was for Mycophenolate 250 mg [...] PM EDT Office Visit Cardiology at [address] [phone] Jay Urban MD [facility] [place] [address] 04/15/2024 10:00 AM EDT Hospital Encounter [place] [phone] Arrived documented as of this encounter Goals [...] filedocumented in this encounter Care Teams Paper Plate Machine Tender Relationship Specialty Start Date End Date Urbano Denis DO [address] [place] [address] PCP - General 09/03/12 03/17/22 Ruchi Valles RN Nurse Clinic Transplant Surgery 07/30/15 documented as of this encounter
--- OUTSIDE RECORDS SUMMARY | 2024-04-04 14:02 | XMS_ITS | Encounter Summary ---
Author Organization [facility] Address [facility] [place] [address] Care Team Providers Care Master At Arms Name Role Phone AdeelUrbano boland Primary Care Provider + [phone] Reason for Visit * Reason Onset Date Comments Medication Refill 01/18/2019 Encounter Details Date Type Department Care Team (Late st Contact Info) Description 01/18/2019 Refill [place] [address] Tal Eagle MD [facility] [place] [address] Social History Tobacco Use Types Packs/Day Years [...] PM EDT Office Visit Cardiology at [address] [phone] Jay Urban MD [facility] [place] [address] 04/15/2024 10:00 AM EDT Hospital Encounter [place] [phone] Arrived documented as of this encounter Goals [...] on filedocumented in this encounter Care Teams Master At Arms Relationship Specialty Start Date End Date Urbano Denis DO [address] [place] [address] PCP - General 09/03/12 03/17/22 Hai STANLEY,Ruchi Nurse Clinic Transplant Surgery 07/30/15 documented as of this encounter
--- OUTSIDE RECORDS SUMMARY | 2024-04-04 14:02 | XMS_ITS | Encounter Summary ---
Author Organization [facility] [place] [address] Care Team Providers Care Board Of Directors Name Role Phone Adeel Urbano KIRBY Primary Care Provider [phone] Reason for Visit * Reason Comments Medication Refill Encounter Details Date Type Department Care Team (Late st Contact Info) Description 01/17/2019 Refill [place] [phone] Tal Eagle MD [facility] [address] Social History Tobacco Use Types Packs/Day Years [...] PM EDT Office Visit Cardiology at [address] [phone] Jay Urban MD [facility] [address] 04/15/2024 10:00 AM EDT Hospital Encounter Non-Invasive [place] [phone] Arrived documented as of this encounter Goals Goal Patient Goal Type Associated Problems Recent Progress Patient-Stated? Author DH Home Medication Compliance and Understanding Patient Facing Action Plan On track( 017 10:41 AM EDT) Selena Scott, [facility] Note: Patient Goal: Clear hepatitis C Timeframe to meet goal: within 12 weeks of therapy documented as of this encounter Visit Diagnoses Not on filedocumented in this encounter Care Teams Board Of Directors Relationship Specialty Start Date End Date Urbano Denis DO [address] [place] [address] [address] [facility] [place] [address] PCP - General 09/03/12 03/17/22 Ruchi Valles RN Nurse Clinic Transplant Surgery 07/30/15 documented as of this encounter
--- OUTSIDE RECORDS SUMMARY | 2024-04-04 14:02 | XMS_ITS | Encounter Summary ---
Author Organization [facility] [place] [address] Care Team Providers Care Market Research Manager Name Role Phone AdeelUrbano toscano Primary Care Provider [phone] Reason for Visit * Reason Onset Date Comments Medication Refill 01/12/2019 Encounter Details Date Type Department Care Team (Late st Contact Info) Description 01/12/2019 Refill [place] [phone] Tal Eagle MD [facility] [place] [address] Social History Tobacco Use Types Packs/Day Years [...] PM EDT Office Visit Cardiology at [address] [phone] Jay Urban MD [facility] [place] [address] 04/15/2024 10:00 AM EDT Hospital Encounter Non-Invasive [place] [phone] Arrived documented as of this encounter Goals [...] on filedocumented in this encounter Care Teams Market Research Manager Relationship Specialty Start Date End Date Urbano Denis DO [address] [place] [address] PCP - General 09/03/12 03/17/22 Ruchi Valles RN Nurse Clinic Transplant Surgery 07/30/15 documented as of this encounter
--- OUTSIDE RECORDS SUMMARY | 2024-04-04 14:02 | XMS_ITS | Encounter Summary ---
Author Organization [facility] [place] [address] Care Team Providers Care Shank Breaker Name Role Phone Adeel Urbano KIRBY Primary Care Provider [phone] Encounter Details Date Type Department Care Team (Late st Contact Info) Description 2018 Abstract [place] [address] Tim Miles LPN Social History Tobacco Use Types Packs/Day [...] PM EDT Office Visit Cardiology at [address] [phone] Jay Urban MD [facility] [place] [address] 04/15/2024 10:00 AM EDT Hospital Encounter Non-Invasive [place] [address] Arrived documented as of this [...] on filedocumented in this encounter Care Teams Shank Breaker Relationship Specialty Start Date End Date Urbano Denis DO [address] [place] [address] [address] [place] [address] PCP - General 09/03/12 03/17/22 Ruchi Valles RN Nurse Clinic Transplant Surgery 07/30/15 documented as of this encounter
--- OUTSIDE RECORDS SUMMARY | 2024-04-04 14:02 | XMS_ITS | Encounter Summary ---
Author Organization [facility] [place] [address] Care Team Providers Care Stock Cutter Name Role Phone Adeel Urbano KIRBY Primary Care Provider [phone] Encounter Details Date Type Department Care Team (Late st Contact Info) Description 01/31/2019 Orders Only [place] [address] Jeremiah Betancur RN Kidney replaced by transplant [...] PM EDT Office Visit Cardiology at [address] [phone] aJy Urban MD [facility] [place] [address] 04/15/2024 10:00 AM EDT Hospital Encounter [place] [address] Arrived Pending Results Name Type [...] (Bezet) 492 ms MUSE SYSTEM Calculated P [place] 49 degrees MUSE SYSTEM Calculated R [place] -58 degrees MUSE SYSTEM Calculated T [place] 151 degrees MUSE SYSTEM INTERPRETATION Sinus rhythm with 1st degree A-V block with frequent Premature atrial complexes in a pattern of bigeminy Left axis deviation ST & T wave abnormality, consider anterolateral ischemia Prolonged QT Abnormal ECG When compared with ECG of 31-JAN-2019 16:28, (unconfirmed) No significant change was found Confirmed by MD Jonatan, Guille Almonte ([id number]) on 02/01/2019 3:55:38 PM MUSE SYSTEM 01/31/2019 6:31 PM EDT 02/01/2019 3:55 PM EDT Unknown ECG ORDERABLES MUSE SYSTEM * Tacrolimus level (01/31/2019 9:46 AM EDT) Tacrolimus 6.7 ng/mL [facility] Comment: Trough therapeutic: ??5-15 ng/mL Performed by ultra-performance liquid chromatography tandem mass spectrometry (UPLCMS/MS). This test was developed and its performance characteristics determined by [facility]. It has not been cleared or [...] CHEMISTRY ORDERAB LES [facility] [place] [address] * (ABNORMAL) Comprehensive metabolic panel (non-fasting) (01/31/2019 9:46 AM EDT) Glucose 175 65 - 199 mg/dL [facility] Comment:Diabetes: >=200 mg/d L plus symptoms Blood Urea Nitrogen 30(H) 10 - 20 mg/dL [facility] Creatinine 1.99(H) 0.80 - 1.50 mg/dL [facility] Sodium 136 135 - 145 mmol/L [facility] Potassium 4.5 3.5 - 5.0 mmol/L [facility] [...] mmol/L [facility] Anion Gap 14 5 - 15 mmol/L [facility] Calcium 10.3 8.5 - 10.5 mg/dL [facility] Protein, Total 7.3 6.1 - 8.0 gm/dL [facility] Albumin 4.3 3.2 - 5.2 gm/dL [facility] Aspartate Aminotransferase 19 0 - 39 unit/L [facility] Alanine Aminotransferase 22 0 - 55 unit/L [facility] Alkaline Phosphatase 68 40 - 130 unit/L [facility] Bilirubin, Total 2.8(H) 0.2 - 1.3 mg/dL [facility] Est Glomerular Filtration Rate 33(L) >=60 mL/min/1. 73 m?? [facility] Comment: The eGFR was calculated using the CKD-EPI equation. As with all creatinine based estimates of kidney function, eGFR values calculated with the CKD-EPI equation are not accurate in patients with acute kidney failure, extremes of body mass or the acutely ill. [email or web address] [email or web address] eGFR 38(L) >=60 mL/min/1. 73 m?? [facility] Comment: The eGFR was calculated using the CKD-EPI equation. As with all creatinine based estimates of kidney function, eGFR values calculated with the CKD-EPI equation are not accurate in patients with acute kidney failure, extremes of body mass or the acutely ill. [email or web address] Blood specimen (specimen) 01/31/2019 9:46 AM EDT 01/31/2019 9:53 AM EDT Narrative Resulting Agency Comment Spec In Lab Tal Eagle MD CHEMISTRY ORDERAB LES [facility] [place] [address] * (ABNORMAL) Uric acid (01/31/2019 9:46 AM EDT) Uric Acid 11.1(H) 3.5 - 8.5 mg/dL [facility] Blood specimen (specimen) 01/31/2019 9:46 AM EDT 01/31/2019 9:53 AM EDT Narrative Resulting Agency Comment Spec In Lab Tal Eagle MD CHEMISTRY ORDERAB LES [facility] [place] [address] * Phosphorus (01/31/2019 9:46 AM EDT) Phosphorus 3.7 2.5 - 4.5 mg/dL [facility] Blood specimen (specimen) 01/31/2019 9:46 AM EDT 01/31/2019 9:53 AM EDT Narrative Resulting Agency Comment Spec In Lab Tal Eagle MD CHEMISTRY ORDERAB LES Performing Organization Address City/[facility]/ZIP Co de Phone Number [facility] [place] [address] * Magnesium (01/31/2019 9:46 AM EDT) Magnesium 0.76 0.69 - 1.07 mmol/L [facility] Blood specimen (specimen) 01/31/2019 9:46 AM EDT 01/31/2019 9:53 AM EDT Narrative Resulting Agency Comment Spec In Lab Tal Eagle MD CHEMISTRY ORDERAB LES Performing Organization Address City/[facility]/ZIP Co de Phone Number [facility] [place] [address] * Cholesterol, total (01/31/2019 9:46 AM EDT) Cholesterol, Total 113 mg/dL [facility] Comment: Lower Risk: <200 mg/dL Average Risk: 200-239 mg/dL Higher Risk: >gc=355 mg/dL Lipid Interpretation See Note [facility] Comment: Lipid management should be guided by a patient? s ASCVD risk, goals and preferences. ACC/AHA Guidelines recommend high intensity statin if clinical ASCVD or LDL greater than or equal to 190 mg/dL. http://ScanScouturl.com/XRR-JZW-Lybbbcdaq Adults aged 40-75 with LDL 70-189 mg/dL should have their 10 year ASCVD risk estimated with the ACC/AHA ASCVD risk grader marker http://tools.acc.org/ROLJT-Kotf-Jufemqugm/ Statin should be discussed if risk greater [...] CHEMISTRY ORDERAB LES [facility] [place] [address] documented in this encounter Visit Diagnoses Diagnosis Kidney replaced by transplant documented in this encounter Care Teams Stock Cutter Relationship Specialty Start Date End Date Urbano Denis DO [facility] [address] [place] [address] PCP - General 09/03/12 03/17/22 Ruchi Valles RN Nurse Clinic Transplant Surgery 07/30/15 documented as of this encounter
--- OUTSIDE RECORDS SUMMARY | 2024-04-04 14:02 | XMS_ITS | Encounter Summary ---
Author Organization [facility] [place] [address] Care Team Providers Care Social Service Agency Director Name Role Phone AdeelUrbano toscano Primary Care Provider [phone] Reason for Visit * Reason Onset Date Comments Medication Refill 06/28/2018 Encounter Details Date Type Department Care Team (Late st Contact Info) Description 06/28/2018 Refill Solid [place] [address] Marisela Metcalf RN Social History Tobacco Use [...] PM EDT Office Visit Cardiology at [address] [phone] Jay Urban MD [facility] [place] [address] 04/15/2024 10:00 AM EDT Hospital Encounter Non-[place] [address] Arrived documented as of this encounter Goals [...] on filedocumented in this encounter Care Teams Social Service Agency Director Relationship Specialty Start Date End Date Urbano Denis DO [address] [place] [address] PCP - General 09/03/12 03/17/22 Ruchi Valles RN Nurse Clinic Transplant Surgery 07/30/15 documented as of this encounter
--- OUTSIDE RECORDS SUMMARY | 2024-04-04 14:02 | XMS_ITS | Encounter Summary ---
Author Organization [facility] [place] [address] Care Team Providers Care Supply Chain Director Name Role Phone Adeel Urbano KIRBY Primary Care Provider [phone] Reason for Visit * Reason Comments Medication Refill Encounter Details Date Type Department Care Team (Late st Contact Info) Description 07/14/2018 Refill Solid [place] [phone] Tal Eagle MD [facility] [place] [address] Social History Tobacco Use Types Packs/Day Years [...] PM EDT Office Visit Cardiology at [address] [phone] Jay Urban MD [facility] [place] [address] 04/15/2024 10:00 AM EDT Hospital Encounter Non-[place] [phone] Arrived documented as of this encounter Goals [...] on filedocumented in this encounter Care Teams Supply Chain Director Relationship Specialty Start Date End Date Urbano Denis DO [address] [place] [address] [address] [facility] [place] [address] PCP - General 09/03/12 03/17/22 Ruchi Valles RN Nurse Clinic Transplant Surgery 07/30/15 documented as of this encounter
--- OUTSIDE RECORDS SUMMARY | 2024-04-04 14:02 | XMS_ITS | Encounter Summary ---
Author Organization [facility] [place] [address] Care Team Providers Care Pipelines Laborer Name Role Phone Adeel Urbano KIRBY Primary Care Provider Reason for Visit * Reason Comments Medication Refill Encounter Details Date Type Department Care Team (Late st Contact Info) Description 01/17/2019 [place] [phone] Guy Giraldo MD [facility] [place] [address] Social History Tobacco Use Types Packs/Day Years [...] PM EDT Office Visit Cardiology at [address] [phone] Jay Urban MD [facility] [place] [address] 04/15/2024 10:00 AM EDT Hospital Encounter [place] [address] Arrived documented as of this encounter Goals [...] on filedocumented in this encounter Care Teams Pipelines Laborer Relationship Specialty Start Date End Date Urbano Denis DO [address] [place] [address] [address] [place] [address] PCP - General 09/03/12 03/17/22 Ruchi Valles RN Nurse Clinic Transplant Surgery 07/30/15 documented as of this encounter
--- OUTSIDE RECORDS SUMMARY | 2024-04-04 14:02 | XMS_ITS | Encounter Summary ---
Author Organization [facility] Address [facility] [place] [address] Care Team Providers Care Data Deliverables Manager Name Role Phone AdeelUrbano boland Primary Care Provider + [phone] Reason for Visit * Reason Comments Medication Refill Encounter Details Date Type Department Care Team (Late st Contact Info) Description 11/15/2018 Refill [place] [address] Tal Eagle MD [facility] [place] [address] Social History Tobacco Use Types Packs/Day Years [...] Request from pt pharmacy Pharmacy, 3rd Floor, [place], [place] for: Requested Prescriptions Pending Prescriptions Disp [...] PM EDT Office Visit Cardiology at [address] [phone] Jay Urban MD [facility] [place] [address] 04/15/2024 10:00 AM EDT Hospital Encounter Non-[place] [phone] Arrived documented as of this encounter Goals [...] filedocumented in this encounter Care Teams Data Deliverables Manager Relationship Specialty Start Date End Date Urbano Denis DO [address] [place] [address] [address] [facility] [place] [address] PCP - General 09/03/12 03/17/22 Hai STANLEY,Ruchi Nurse Clinic Transplant Surgery 07/30/15 documented as of this encounter
--- OUTSIDE RECORDS SUMMARY | 2024-04-04 14:02 | XMS_ITS | Encounter Summary ---
Author Organization [facility] [place] [address] Care Team Providers Care Turbine Mechanic Name Role Phone Adeel Urbano KIRBY Primary Care Provider [phone] Encounter Details Date Type Department Care Team (Latest Contact Info) Description 09/15/2018 10:40 AM EDT Office Visit [place] [phone] Tal Eagle MD [facility] [place] [address] Kidney replaced by transplant; Vitamin D deficiency [...] for diabetics, every 5 for non diabetics [place] kidney ultrasound looking for renal cell CA, [...] load undetectable after treatment in June ?? [id number] labs f/u in 1 year . Thanks [...] 30 min in direct face to face assistant corporation counsel. Abdirahman Chiu Nephrology Fellow I reviewed all of the above findings and assessment of Dr. Chiu, edited the above note to reflect my assessment and examination and formulated the recommendations which accurately reflect mine. documented in this encounter Plan of Treatment Upcoming Encounters Date Type Department Care Team (Late st Contact Info) Description 04/08/2024 1:40 PM EDT Office Visit Cardiology at [address] [phone] Jay Urban MD [facility] [place] [address] 04/15/2024 10:00 AM EDT Hospital Encounter Non-[place] [phone] Arrived documented as of this encounter Goals [...] 25 OH 19(L) 30 - 100 ng/mL [facility] [...] be considered to be insufficient or deficient. [email or web address] [email or web address]/nejm-[email or web address] The [employer] iSYS Vitamin D Immunoassay detects both 25-OH Vitamin D2 and 25-OH Vitamin D3, but only a total Vitamin D concentration is reported. Blood specimen (specimen) 09/15/2018 9:53 AM EDT 09/15/2018 12:08 PM EDT Narrative Resulting Agency Comment Spec In Lab Tal Eagle MD CHEMISTRY ORDERAB LES Performing Organization Address [facility] Co de Phone Number [facility] [place] [address] * Uric acid (09/15/2018 9:53 AM EDT) Uric Acid 8.1 3.5 - 8.5 mg/dL [facility] Blood specimen (specimen) 09/15/2018 9:53 AM EDT 09/15/2018 10:01 AM EDT Narrative Resulting Agency Comment Spec In Lab Tal Eagle MD CHEMISTRY ORDERAB LES Performing Organization Address [facility] Co de Phone Number [facility] [place] [address] * Tacrolimus level (09/15/2018 9:53 AM EDT) Tacrolimus 7.8 ng/mL [facility] Comment: Trough therapeutic: ??5-15 ng/mL Performed by ultra-performance liquid chromatography tandem mass spectrometry (UPLCMS/MS). This test was developed and its performance characteristics determined by [facility]. It has not been cleared or [...] MD CHEMISTRY ORDERAB LES Performing Organization Address [facility] Co de Phone Number [facility] [place] [address] * Reticulocyte Count (09/15/2018 9:53 AM EDT) Reticulocyte % 2.0 0.7 - 2.6 % [facility] Retic Abs # 0.110 0.030 - 0.120 x10(6)/mcL [facility] Immature Retic% 8.1 0.0 - 15.6 % [facility] Reticulated Hgb 35.9 31.3 - 40.2 pg [facility] Blood specimen (specimen) 09/15/2018 9:53 AM EDT 09/15/2018 10:01 AM EDT Narrative Resulting Agency Comment Spec In Lab Tal Eagle MD HEMATOLOGY ORDERA BLES Performing Organization Address [facility] Co de Phone Number [facility] [place] [address] * (ABNORMAL) PTH (09/15/2018 9:53 AM EDT) Parathyroid Hormone 78(H) 15 - 65 pg/mL [facility] Blood specimen (specimen) 09/15/2018 9:53 AM EDT 09/15/2018 10:01 AM EDT Narrative Resulting Agency Comment Spec In Lab Tal Eagle MD CHEMISTRY ORDERAB LES Performing Organization Address [facility] Co de Phone Number [facility] [place] [address] * Phosphorus (09/15/2018 9:53 AM EDT) Phosphorus 3.2 2.5 - 4.5 mg/dL [facility] Blood specimen (specimen) 09/15/2018 9:53 AM EDT 09/15/2018 10:01 AM EDT Narrative Resulting Agency Comment Spec In Lab Tal Eagle MD CHEMISTRY ORDERAB LES Performing Organization Address City/[facility]/ZIP Co de Phone Number [facility] [place] [address] * Magnesium (09/15/2018 9:53 AM EDT) Magnesium 0.71 0.69 - 1.07 mmol/L [facility] Blood specimen (specimen) 09/15/2018 9:53 AM EDT 09/15/2018 10:01 AM EDT Narrative Resulting Agency Comment Spec In Lab Tal Eagle MD CHEMISTRY ORDERAB LES Performing Organization Address [facility] Co de Phone Number [facility] [place] [address] * Lipid Panel (09/15/2018 9:53 AM EDT) Cholesterol, Total 151 mg/dL [facility] Comment: Lower Risk: <200 mg/dL Average Risk: 200-239 mg/dL Higher Risk: >em=656 mg/dL Triglyceride 166 mg/dL [facility] Comment: Average Risk/Lower Risk: <150 mg/dL Borderline High Risk: 150-199 mg/dL High Risk: 200-499 mg/dL Very High Risk: >lz=603 mg/dL HDL Cholesterol 40 mg/dL [facility] Comment: Males: ?? Higher Risk: <40 mg/dL Females: ?? HIgher Risk: <50 mg/dL LDL Cholesterol 78 mg/dL [facility] Comment: Lowest Risk: <100 mg/dL Lower Risk: 100-129 mg/dL Borderline High Risk: 130-159 mg/dL High Risk: 160-189 mg/dL Very High Risk: >dc=895 mg/dL Cholesterol/HDL Ratio 3.8 ratio [facility] Lipid Interpretation See Note [facility] Comment: Lipid management should be guided by a patient? s ASCVD risk, goals and preferences. ACC/AHA Guidelines recommend high intensity statin if clinical ASCVD or LDL greater than or equal to 190 mg/dL. http://SulfurCellurl.com/WRS-BFS-Qwsuzonhh Adults aged 40-75 with LDL 70-189 mg/dL should have their 10 year ASCVD risk estimated with the ACC/AHA ASCVD risk estimator and drafter supervisor http://tools.acc.org/BFUIU-Sgsg-Rjfcxgcen/ Statin should be discussed if risk greater [...] MD CHEMISTRY ORDERAB LES Performing Organization Address [facility]/ZIP Co de Phone Number [facility] [place] [address] * Lavender Tube HOLD (09/15/2018 9:53 AM EDT) Lavender Hold Sample in lab. [facility] Blood specimen (specimen) 09/15/2018 9:53 AM EDT 09/15/2018 10:01 AM EDT Tal Eagle MD HEMATOLOGY ORDERA BLES Performing Organization Address [facility]/ZIP Co de Phone Number [facility] [place] [address] * (ABNORMAL) Hemoglobin A1c (09/15/2018 9:53 AM [...] Mellitus, Diabetes Care 2013; 36: Suppl. 1, D97-79 Estimated Average Glucose See note mg/dL [facility] [...] into estimated average glucose values. ??Diabetes Care 2008:31(8):3512-1806. Blood specimen (specimen) 09/15/2018 9:53 AM EDT 09/15/2018 10:01 AM EDT Narrative Resulting Agency Comment Spec In Lab Tal Eagle MD CHEMISTRY ORDERAB LES [facility] [place] [address] * Gold Tube HOLD (09/15/2018 9:53 AM EDT) Gold Hold Sample in lab. [facility] Blood specimen (specimen) 09/15/2018 9:53 AM EDT 09/15/2018 10:00 AM EDT Tal Eagle MD CHEMISTRY ORDERAB LES [facility] [place] [address] * (ABNORMAL) CMP w/fasting Glucose (09/15/2018 9:53 AM EDT) Glucose Fasting 151(H) 65 - 99 mg/dL [facility] [...] 1.50 mg/dL [facility] Sodium 140 135 - 145 mmol/L [facility] [...] mmol/L [facility] Carbon Dioxide 32(H) 22 - 31 mmol/L [facility] Anion Gap 11 5 - 15 mmol/L [facility] Calcium 10.0 8.5 - 10.5 mg/dL [facility] Protein, Total 7.7 6.1 - 8.0 gm/dL [facility] Albumin 4.3 3.2 - 5.2 gm/dL [facility] Aspartate Aminotransferase 20 0 - 39 unit/L [facility] Alanine Aminotransferase 22 0 - 55 unit/L [facility] Alkaline Phosphatase 78 40 - 120 unit/L [facility] Bilirubin, Total 2.9(H) 0.2 - 1.3 mg/dL [facility] Est Glomerular Filtration Rate 59(L) >=60 mL/min/1. 73 m?? [facility] Comment: The eGFR was calculated using the CKD-EPI equation. As with all creatinine based estimates of kidney function, eGFR values calculated with the CKD-EPI equation are not accurate in patients with acute kidney failure, extremes of body mass or the acutely ill. [email or web address].com/[facility]ULSAnkf eGFR 69 >=60 mL/min/1. 73 m?? [facility] Comment: The eGFR was calculated using the CKD-EPI equation. As with all creatinine based estimates of kidney function, eGFR values calculated with the CKD-EPI equation are not accurate in patients with acute kidney failure, extremes of body mass or the acutely ill. [email or web address]/[facility]ULSAnkf Blood specimen (specimen) 09/15/2018 9:53 AM EDT 09/15/2018 10:01 AM EDT Narrative Resulting Agency Comment Spec In Lab Tal Eagle MD CHEMISTRY ORDERAB LES [facility] [place] [address] * (ABNORMAL) 1,25-dihydroxycholecalciferol (09/15/2018 9:53 AM EDT) Vit D 1,25 Dihydroxy (NOVEMBER) 70(H) 18 - 64 pg/mL [facility] Comment: ADDITIONAL INFORMATION This test was developed and its performance characteristics determined by [facility] in a manner consistent with CLIA requirements. This test has not been cleared or approved by the U.S. Food and Drug Administration. Test Performed by: [facility] [address] [place] [address] Blood specimen (specimen) 09/15/2018 9:53 AM EDT 09/15/2018 1:05 PM EDT Narrative Resulting Agency Comment Spec In Lab Tal Eagle MD LAB SEND OUT ROCHELLE JENNINGS [facility] [place] [address] * BKV Quant Blood (09/15/2018 9:53 AM EDT) [facility] BKV Blood Result Not Detected [facility] BKV Blood Interp BK Virus Plasma Result Interpretation Result: BK Virus not detected Specimen type: plasma Assay Range: 2.80-7.80 log copies/mL (6.28x10^2 - 6.28x10^7 copies/mL) Methods: Quantitative real-time polymerase chain reaction (PCR) of viral DNA isolated from plasma was performed using [employer] BKV analyte-specific reagents and the [employer] System that automates both nucleic acid isolation [...] [facility] [employer] ([facility]) Laboratory at [facility]. It has not been cleared or approved by the FDA. The laboratory is regulated under CLIA as qualified to perform high-complexity testing. This test is used for clinical purposes. It should not be regarded as investigational or for research. [facility] Comment: [VERIFIED DATE]09.23.18 Verified By:Tal Cleaning (Electronic Signature) Blood specimen (specimen) 09/15/2018 9:53 AM EDT 09/15/2018 11:12 AM EDT Narrative Resulting Agency Comment Spec In Lab Tal Eagle MD MOLECULAR ORDERAB LES [facility] [place] [address] * (ABNORMAL) Urinalysis with reflex Culture (09/15/2018 [...] Clear Clear [facility] Specific [place] Urine Automated 1.021 1.002 - 1.030 [facility] Color, Urine Dipstick Yellow Yellow [facility] Reflex to Culture No [facility] Urine specimen obtained by clean catch procedure (specimen) 09/15/2018 9:48 AM EDT 09/15/2018 9:58 AM EDT Narrative Resulting Agency Comment Spec In Lab Tal Eagle MD URINE ORDERABLES Performing Organization Address [facility] Co de Phone Number [facility] [place] [address] * (ABNORMAL) Protein/Creatinine Ratio, urine (09/15/2018 9:48 AM EDT) Creatinine, Urine 117 mg/dL [facility] Protein, Urine 153(H) 0 - 12 mg/dL [facility] Protein / Creatinine Ratio, Urine 1.3 ratio [facility] Urine specimen (specimen) 09/15/2018 9:48 AM EDT 09/15/2018 10:00 AM EDT Narrative Resulting Agency Comment Spec In Lab Tal Eagle MD URINE ORDERABLES Performing Organization Address [facility] de Phone Number [facility] [place] [address] * Phosphorus, urine, random (09/15/2018 9:48 AM EDT) Phosphorus, Urine 71.7 mg/dL [facility] Urine specimen (specimen) 09/15/2018 9:48 AM EDT 09/15/2018 2:24 PM EDT Narrative Resulting Agency Comment Spec In Lab Tal Eagle MD URINE ORDERABLES Performing Organization Address [facility] Co de Phone Number [facility] [place] [address] * Magnesium, urine, random (09/15/2018 9:48 AM EDT) Magnesium, Urine 0.84 mmol/L [facility] Urine specimen (specimen) 09/15/2018 9:48 AM EDT 09/15/2018 10:00 AM EDT Narrative Resulting Agency Comment Spec In Lab Tal Eagle MD URINE ORDERABLES Performing Organization Address City/[facility]/ZIP Co de Phone Number [facility] [place] [address] * Calcium Creatinine Ratio, random urine (09/15/2018 9:48 AM EDT) Calcium, Urine 6.5 mg/dL [facility] Creatinine, Urine 117 mg/dL [facility] Calcium / Creatinine Ratio, Urine 0.06 ratio [facility] Urine specimen (specimen) 09/15/2018 9:48 AM EDT 09/15/2018 2:24 PM EDT Narrative Resulting Agency Comment Spec In Lab Tal Eagle MD URINE ORDERABLES Performing Organization Address [facility] Co de Phone Number [facility] [place] [address] documented in this encounter Visit Diagnoses Diagnosis Kidney replaced by transplant Vitamin D deficiency Unspecified vitamin D deficiency Type 2 diabetes mellitus with complication, without long-term current use of insulin Aftercare following organ transplant Prophylactic immunotherapy Need for prophylactic immunotherapy documented in this encounter Care Teams Turbine Mechanic Relationship Specialty Start Date End Date Urbano Denis DO [address] [place] [address] PCP - General 09/03/12 03/17/22 Ruchi aVlles RN Nurse Clinic Transplant Surgery 07/30/15 documented as of this encounter
--- OUTSIDE RECORDS SUMMARY | 2024-04-04 14:02 | XMS_ITS | Encounter Summary ---
Author Organization Formerly [facility] [place] [address] Care Team Providers Care Payroll Manager Name Role Phone Urbano Denis DO Primary Care Provider [phone] Reason for Visit * Reason Comments Dehydration Dizziness * Auth/Cert Specialty Diagnoses / Procedures Referred By Humberto flor Referred To Contact Diagnoses Paroxysmal atrial fibrillation Atrial fibrillation with RVR Referral ID Status Reason Start Date Expiration Date Visits Re quested Visits Authorized [id number] 1 1 Encounter Details Date Type Department Care Team (Late st Contact Info) Description 02/02/2019 1:00 PM EDT - 02/02/2019 2:00 PM EDT [place] [address] Bobby Engel MD [facility] [place] [address] CARDIAC CATHETERIZATION Social History Tobacco Use Types [...] Ethel Bolden Patient Age: 68 y.o. Language: Malian Race: White Ethnicity: Not nor Admit date: [...] please contact your inpatient physician through the [facility] Heavy Equipment Rental Manager . Issues afterhours and on weekends will [...] Vitamin D deficiency ??? 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 residential current use of immunosuppressive drug ??? CAH [...] fluid loss. Denies any fevers or chills. [place] bloated in abdomen since yesterday. No pain [...] was also started on apixaban due to [id number] score of 6, with no complications of [...] night,and patient reported a history of ARIELLA. [place] Sleepiness Scale was notable for increased sleepiness; [...] Complete By Expires Referral to Cardiac Rehab [[id number] Custom] As directed Process Instructions: If no progress note charted, please enter Clinical details in comments. Scheduling Instructions: Questions: My question or request is: Pt will participate in cardiac rehab @ [facility] Referral to Home Health - at DISCHARGE [[id number] CPT(R)] As directed Process Instructions: Scheduling Instructions: Comments: DOCUMENTATION FOR VNA SERVICES (INCLUDING THOSE PATIENTS WITH MEDICARE COVERAGE REQUIRING HOME VNA SERVICES AND/OR HOSPICE SERVICES) PATIENT'S LOCATION: Ethel Bolden [address] [place], [place] [address] [place] [address] (home) Cell: Telephone Information: Hat Finishing Materials Preparer's Name: Patient In discussion with the attending physician, it is certified that this patient is under their care and that they, or a Nurse Practitioner,Clinical Nurse specialist or Physician Rn Progressive Care who is working directly with them, had [...] for managing ADL's. HOME HEALTH CARE AGENCY: [facility]. PHONE: [phone] FAX: [phone] Start of care: 24-48hrs upon discharge FOR [...] Denis DO [address] / [place] [address] All VNA agencies which cover the area of patient's residence have been reviewed, either verbally greg writing, and patient/family have chosen the home health care agency noted Questions: Agency name and contact information: [facility] Patient location post [...] 02/05/2019 4:04 PM EDT Pt discharged to [facility] via wheelchair, accompanied by and RN. Belongings [...] Vitamin D deficiency ??? 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 residential current use of immunosuppressive drug ??? CAH [...] spent <30 minutes (Day of Discharge Code 35242) involved in the final examination of the [...] DAILY PROGRESS NOTE Patient: Ethel Bolden, 1950, [id number] Physician: Alessandro Limon DO, Pager: [phone], Hospital [...] PRN DIET: Daily Healthy Menu Choices/Cardiac diet ([facility]-Diet) IPI Certification I certify that I am a D-H credentialed attending provider with admitting privileges and that the patient meets or has met medical necessity to require an inpatient IPI level of care meeting a minimumof two midnights or is on the [facility] inpatient only procedure list (status C) due [...] side effects and NSTEMI Alessandro Limon DO [facility] Hospitalist 02/04/2019 4:42 PM * Mahsa Celestin RN - 02/04/2019 3:41 PM EDT Spoke with patient regarding VNA services, he asked me to speak with Mundo. This bond underwriter calledHarpreetnicola and she asked for a referral to: [facility]. PHONE: [phone] FAX: [phone] Referral routed to the Maintenance Operator for matching with agency/vendor and to provide [...] DAILY PROGRESS NOTE Patient: Ethel Bolden, 1950, [id number] Physician: Alessandro Limon DO, Pager: [phone], Hospital Medicine Service Admit Date: 01/31/2019 Date [...] PRN DIET: Daily Healthy Menu Choices/Cardiac diet ([facility]-Diet) IPI Certification I certify that I am a D-H credentialed attending provider with admitting privileges and that the patient meets or has met medical necessity to require an inpatient IPI level of care meeting a minimumof two midnights or is on the [facility] inpatient only procedure list (status C) due [...] side effects and NSTEMI Alessandro Limon DO [facility] Hospitalist 02/03/2019 5:14 PM * [...] from 01/31/2019 in Intermediate Cardiac Care Unit [facility] Office Visit from 09/15/2018 in Solid Organ Transplant at [facility] Weight 107 kg (235 lb 14.3 oz) [...] Limon DO - 02/02/2019 3:47 PM EDT [facility] ATTENDING DAILY PROGRESS NOTE Patient: Ethel Bolden, 1950, [id number] Physician: Alessandro Limon DO, Pager: [phone], Hospital Medicine Service Admit Date: 01/31/2019 Date [...] minimumof two midnights or is on the [facility] inpatient only procedure list (status C) due [...] 100% Non re breather for transport to Theology Teacher PLAN: RT will cont to support and [...] to place patient back on high flowat 2342 for SpO2 < 90%. Initially placed on [...] on 8L venti mask desat to 86%. HAMMER MILL OPERATOR Giselle notified. Nebulizer ordered with minimal effect. Chest xray obtained. Pt place on 12L 50% venti.RT notified requesting hi-flow. Pt continued to desat. Placed on nonrebreather sating 89%. HAMMER MILL OPERATOR notified. Nonrebreather only set to 50% fiO2 via hi flow stand. Came to bedside to assess. 2343- RT at bedside 2346- life safety at bedside * Alessandro Limon DO - 02/01/2019 4:28 PM EDT [facility] ATTENDING DAILY PROGRESS NOTE Patient: Ethel Bolden, 1950, [id number] Physician: Alessandro Limon DO, Pager: [phone], Hospital Medicine Service Admit Date: 01/31/2019 Date [...] minimumof two midnights or is on the [facility] inpatient only procedure list (status C) due [...] side effects and NSTEMI Alessandro Limon DO [facility] Hospitalist 02/01/2019 7:23 PM * Yeimi Martinez, [facility] - 02/01/2019 10:26 AM EDT Respiratory Therapy [...] low 90s while on mask 65L 50%. HAMMER MILL OPERATOR aware and had IVF stopped, ordered ABG - 7.46/33/122/22.9 on60% FO2Hb 97.4 with SpO2 still reading low 90s. Weaned FiO2 back down to 45%. Plan to start diuresis pending AM labs. PLAN: Wean settings as tolerated. Sharon Boo RCP * Polina Glaser, RN - 01/31/2019 10:24 PM EDT Pt desating while asleep on RA. NC applied, unable to maintain sats on 6L NC. HAMMER MILL OPERATOR Giselle notified.Came to bedside to assess. Pt placed on venti mask. Pt up to 50% 12L venti mask to maintain sats >90%. RT notified. Crop And Soil Technician updated. No further labs ordered at this [...] Vitamin D deficiency ??? 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 residential current use of immunosuppressive drug ??? CAH [...] Hematuria ID: 68 y.o. Male presents to [facility] with lightheadedness and decreased urine output History [...] fluid loss. Denies any fevers or chills. [place] bloated in abdomen since yesterday. No pain [...] ALLOGRAFT performed by Larry Larkin MD at [facility] OR ??? PRO TRANSPLANTATION OF KIDNEY N/A 09/16/2015 @KIDNEY TRANSPLANT, WITHOUT RECIPIENT NEPHRECTOMY performed by Larry Larkin MD at [facility] OR ??? US RENAL TRANSPLANT LEFT Left 01/31/2019 US Renal Transplant Left 01/31/2019 [facility] RAD ULTRASOUND Prior To Admission Medications: [...] file Gets together: Not on file Attends holiness service: Not on file Active member of [...] Negative mcL Appearance UA Clear Clear Spec [place] UA 1.023 1.002 - 1.030 Color UA [...] to medicine Rocky Wong MD Resident 01/31/19 0374 Associated attestation - Mundo Yeung MD - [...] medically ready INDIVIDUALIZED FALL PREVENTION INTERVENTIONS: Call robels, frequent rounding Patient-specific fall risk factors per [...] Intake/Output Summary (Last 24 hours) at 02/04/2019 0205 Last data filed at 02/04/2019 1308 Gross [...] - Work up for ARIELLA--scored high on [place] Sleep Scale; may benefit from outpatient sleep [...] off oxygen ?? Destinee Leggett M4 Pager: [phone] * Consult Note - Blanca Jacobo RN [...] in an outpatient cardiac rehabilitation program at [facility] was discussed. Patient agrees to a [...] ALLOGRAFT performed by Larry Larkin MD at [facility] OR ??? PRO TRANSPLANTATION OF KIDNEY N/A 09/16/2015 @KIDNEY TRANSPLANT, WITHOUT RECIPIENT NEPHRECTOMY performed by Larry Larkin MD at [facility] OR ??? US RENAL TRANSPLANT LEFT Left 01/31/2019 US Renal Transplant Left 01/31/2019 [facility] RAD ULTRASOUND Social History: Patient lives [...] and measurable assessment of functional outcome. Pager: [phone] Lee Ann Thomas OT 02/04/2019 Occupational Therapy [...] w/ O2 sat at low 90's and xvsdazfsjl12% non sustained. - 3:00am: Duoneb x1, Pt [...] possibly be re-evaluated for cardiac rehab. Given [id number] score and history of aflutter, will begin [...] ?? Destinee Duckworth Kenan Tidwell M4 Pager: [phone] * Consult Note - Sara Amador RN [...] Procedure Note: Patient Name: Ethel Bolden : [id number] MR#: [id number] Case Date: 02/02/2019 Heavy Equipment Rental Manager: Surgeon(s) and Role: * Bobby Engel MD [...] HR <50, Systolic BP <90 - Elevated [id number]; patient may benefit from anticoagulation; to discuss [...] d/c ?Thursday ?? Destinee Leggett M4 Pager: [phone] * Plan of Care - Sharon Ruth [...] to recover. 1653 patient transferred to the microbiology laboratory manager PLAN MOVING FORWARD: Telemetry Heparin drip Bleeding [...] GENERIC Prescription Coverage: Yes Preferred Pharmacy: [facility] [address] [address] Not a 24 hour pharmacy; exact hours not known [facility] [id number] Not a 24 hour pharmacy; exact hours not known Other: None Primary Care Provider: Urbano Denis DO [phone] Patient/Caregiver Goals of Treatment: To get the [...] of care planning. Mahsa Celestin, RN Pager: [phone] * Plan of Care - Nika Starr [...] left heart cath, coronaries Nika Starr MD Timber Management Professor * Plan of Care - Polina Glaser [...] HR <50, Systolic BP <90 - Elevated [id number]; patient may benefit from anticoagulation but unclear [...] d/c ?Thursday ?? Destinee Leggett M4 Pager: [phone] * Consult Note - Larry Garay MD [...] Chest xray completed. Trop came back elevated. HAMMER MILL OPERATOR Giselle notified. STAT EKG completed. Heparin gtt infusing as ordered. Life safety came to bedside. IVF decreased to 75cc/hr from 120cc/hr. Tele in sinus rhythm with frequent PVCs. Will CTM and notify the team with changes. 0410- Pt continues to have difficulty maintain sats on venti mask. Placed on Hi- flow mask. IVF stopped. Rt at bedside. ABG drawn. Life safety and HAMMER MILL OPERATOR at bedside. PLAN MOVING FORWARD: Tele Monitor resp status Trend trop Heparin gtt INDIVIDUALIZED FALL PREVENTION INTERVENTIONS: Patient-specific fall risk factors per assessment: [current deficits]: Generalized weakness, whlaey Assistance [level of assistance required for transfers [...] - walks stairs etc. Found to have RYA. Had been drinking 3 liters fluid aday. [...] remained coarse and diminished in bases. Primary MANAGER POWER notified with concern of new oxygen demand. Plan made to d/c IVF r/tincreased pulmonary congestion shown on CXR and elevated troponin. AM labs drawn to evaluate RAY and d/c of IVF. MD expressed concerns of sleep apnea. When patient originally awake no increases in O2sat noted. SENIOR MARKETING SPECIALIST notified and down to eval. Plan [...] couple of years ago and don't want it.MANAGER POWER consulted critical care fellow at this time. Lasix IVP was discussed to help with new pulmonary congestion. Plan made to re evaluate s/p AM labs (ie. BUN/Cr) for concern of worsening RAY. Plan made with MANAGER POWER, primary RN, and bellows charger assembler for continued monitoring of oxygen status, repeat [...] with oxygenation. Plan made with primary RN, MANAGER POWER, and bellows charger assembler to have patient remain on floor r/t [...] EXTREMITY performed by Que Amaro MD at [facility] OR ??? PRO CYSTOURETHROSCOPY, URETER CATHETER Left 06/17/2018 CYSTO, RETROGRADE, URETEROPYELOGRAPHY (WRVU 2.37) performed by Edinson Grider III, MD at [facility] FREDIS ??? PRO REIMPLANT URETER, SINGLE URETER Left 05/20/2016 @URETERONEOCYSTOSTOMY ANASTOMOSIS OF SINGLE URETER TO BLADDER performed by Santosh Arredondo MD at [facility] OR ??? PRO REIMPLANT URETER, SINGLE URETER N/A 05/20/2016 @URETERONEOCYSTOSTOMY ANASTOMOSIS OF SINGLE URETER TO BLADDER performed by Que Amaro MD at [facility] OR ??? PRO TOTAL KNEE ARTHROPLASTY Right 11/25/2017 TOTAL KNEE ARTHROPLASTY (WRVU 20.72) performed by Breezy Dale MD at [facility] OR ??? PRO TRANSPLANT, PREP CADAVER RENAL GRAFT N/A 09/16/2015 @PREPARATION CADAVERIC RENAL ALLOGRAFT performed by Larry Larkin MD at [facility] OR ??? PRO TRANSPLANTATION OF KIDNEY N/A 09/16/2015 @KIDNEY TRANSPLANT, WITHOUT RECIPIENT NEPHRECTOMY performed by Larry Larkin MD at [facility] OR ??? US RENAL TRANSPLANT LEFT Left 01/31/2019 US Renal Transplant Left 01/31/2019 [facility] RAD ULTRASOUND No Known Allergies Cardiac [...] file Gets together: Not on file Attends holiness service: Not on file Active member of [...] ED to Hosp-Admission (Current) from 01/31/[address] [place] [address] Office Visit from 09/15/2018 in Solid Organ Transplant at [facility] Weight 106.1 kg (234 lb) 1 01/31/2019 [...] will continue to follow. Jessee Nance MD Timber Management Professor [phone] POST ROUNDS ADDENDUM 68 year old [...] team - IV diuresis Discussed with Dr. Chueng, addendum to follow. Nika Starr MD Timber Management Professor [phone] Cardiology Staff Addendum Ethel Bolden is [...] on TTE) #Atrial fibrillation and flutter, nonvalvular, [id number] 6 #HFrEF/acute systolic HF, new (LVEF 35%), [...] PM EDT Office Visit Cardiology at [address] [address] Jay Urban MD [facility] [place] [address] 04/15/2024 10:00 AM EDT Hospital Encounter Non[place] [address] Arrived Pending Results Name Type [...] Type Associated Problems Recent Progress Patient-Stated? Author [facility] Medication Compliance and Understanding Patient Facing [...] [facility] FIO2 Art 50 % [facility] PF Ratio Art 154 [facility] Blood specimen (specimen) 02/07/2019 2:42 AM EDT 02/07/2019 2:42 AM EDT Danny Hicks MD POINT OF CARE TEST O TED Performing Organization Address [facility] Co de Phone Number [facility] [place] [address] * POCT Glucose (02/05/2019 11:25 AM EDT) Glucose, POC 163 65 - 199 mg/dL [facility] Comment: Supplemental ranges: <140 mg/dL before meals <180 mg/dL all other times of the day Blood specimen (specimen) 02/05/2019 11:25 AM EDT 02/05/2019 11:25 AM EDT Alessandro Limon DO POINT OF CARE TEST O RDERABLES Performing Organization Address City/[facility]/ZIP Co de Phone Number [facility] [place] [address] * (ABNORMAL) Magnesium (02/05/2019 7:47 AM EDT) Magnesium 0.67(L) 0.69 - 1.07 mmol/L [facility] Blood specimen (specimen) 02/05/2019 7:47 AM EDT 02/05/2019 8:13 AM EDT Narrative Resulting Agency Comment Spec In Lab Alessandro Limon DO CHEMISTRY ORDERABLES Performing Organization Address [facility] Co de Phone Number [facility] [place] [address] * POCT Glucose (02/05/2019 6:56 AM EDT) Glucose, POC 110 65 - 199 mg/dL [facility] Comment: Supplemental ranges: <140 mg/dL before meals <180 mg/dL all other times of the day Blood specimen (specimen) 02/05/2019 6:56 AM EDT 02/05/2019 6:56 AM EDT Alessandro Limon DO POINT OF CARE TEST O RDERABLES Performing Organization Address [facility] Co de Phone Number [facility] [place] [address] * POCT Glucose (02/04/2019 7:38 PM EDT) Glucose, POC 102 65 - 199 mg/dL [facility] Comment: Supplemental ranges: <140 mg/dL before meals <180 mg/dL all other times of the day Blood specimen (specimen) 02/04/2019 7:38 PM EDT 02/04/2019 7:38 PM EDT Alessandro Limon DO POINT OF CARE TEST O RDERABLES Performing Organization Address [facility] Co de Phone Number [facility] [place] [address] * (ABNORMAL) BMP w/fasting Glucose (02/04/2019 7:35 [...] of Diabetes Mellitus, Position Statement from the [place] [employer]. ??Diabetes Care, Volume 33, Supplement [...] of body mass or the acutely ill. http://[employer]/DHMCnkf eGFR 57(L) >=60 mL/min/1. 73 m?? [facility] Comment: The eGFR was calculated using the CKD-EPI equation. As with all creatinine based estimates of kidney function, eGFR values calculated with the CKD-EPI equation are not accurate in patients with acute kidney failure, extremes of body mass or the acutely ill. [email or web address] Blood specimen (specimen) 02/04/2019 7:35 PM EDT 02/04/2019 7:40 PM EDT Narrative Resulting Agency Comment Spec In Lab Patricia Lozano APRN CHEMISTRY ORDERAB LES Performing Organization Address City/[facility]/ZIP Co de Phone Number [facility] [place] [address] * POCT Glucose (02/04/2019 4:30 PM EDT) Glucose, POC 143 65 - 199 mg/dL [facility] Comment: Supplemental ranges: <140 mg/dL before meals <180 mg/dL all other times of the day Blood specimen (specimen) 02/04/2019 4:30 PM EDT 02/04/2019 4:30 PM EDT Alessandro Limon DO POINT OF CARE TEST O RDERABLES Performing Organization Address [facility] Co de Phone Number [facility] [place] [address] * POCT Glucose (02/04/2019 11:26 AM EDT) Glucose, POC 141 65 - 199 mg/dL [facility] Comment: Supplemental ranges: <140 mg/dL before meals <180 mg/dL all other times of the day Blood specimen (specimen) 02/04/2019 11:26 AM EDT 02/04/2019 11:26 AM EDT Alessandro Limon DO POINT OF CARE TEST O RDERABLES Performing Organization Address [facility] Co de Phone Number [facility] [place] [address] * POCT Glucose (02/04/2019 7:01 AM EDT) Glucose, POC 152 65 - 199 mg/dL [facility] Comment: Supplemental ranges: <140 mg/dL before meals <180 mg/dL all other times of the day Blood specimen (specimen) 02/04/2019 7:01 AM EDT 02/04/2019 7:01 AM EDT Alessandro Limon DO POINT OF CARE TEST O RDERABLES Performing Organization Address [facility] Co de Phone Number [facility] [place] [address] * Magnesium (02/04/2019 3:40 AM EDT) Magnesium 0.69 0.69 - 1.07 mmol/L [facility] Blood specimen (specimen) Venous Draw / Unknown 02/04/2019 3:40 AM EDT 02/04/2019 3:49 AM EDT Narrative Resulting Agency Comment Spec In Lab Alessandro Limon DO CHEMISTRY ORDERABLES Performing Organization Address [facility] Co de Phone Number [facility] [place] [address] * (ABNORMAL) Basic Metabolic Panel (non-fasting) (02/04/2019 3:40 AM EDT) Glucose 126 65 - 199 mg/dL [facility] [...] of body mass or the acutely ill. http://[employer]/[facility] eGFR 51(L) >=60 mL/min/1. 73 m?? [facility] Comment: The eGFR was calculated using the CKD-EPI equation. As with all creatinine based estimates of kidney function, eGFR values calculated with the CKD-EPI equation are not accurate in patients with acute kidney failure, extremes of body mass or the acutely ill. http://[email or web address]/DHnkf Blood specimen (specimen) 02/04/2019 3:40 AM EDT 02/04/2019 3:49 AM EDT Narrative Resulting Agency Comment Spec In Lab Alessandro Limon DO CHEMISTRY ORDERABLES Performing Organization Address City/State/[facility] Co de Phone Number [facility] [place] [address] * (ABNORMAL) Hemogram (02/04/2019 3:40 AM EDT) [...] DO HEMATOLOGY ORDERABLE S Performing Organization Address City/[facility]/ZIP Co de Phone Number [facility] [place] [address] * POCT Glucose (02/03/2019 8:56 PM EDT) Pathologist [facility] Glucose, POC 117 65 - 199 mg/dL [facility] Comment: Supplemental ranges: <140 mg/dL before meals <180 mg/dL all other times of the day Blood specimen (specimen) 02/03/2019 8:56 PM EDT 02/03/2019 8:56 PM EDT Alessandro Limon DO POINT OF CARE TEST O RDERABLES Performing Organization Address City/[facility]/ZIP Co de Phone Number [facility] [place] [address] * Heparin (unfractionated) Level (02/03/2019 5:07 PM EDT) Pathologist [facility] UF Heparin 0.31 IU/mL [facility] Comment: Guidelines for therapeutic unfractionated heparin [...] MD HEMATOLOGY ORDERABLE S Performing Organization Address [facility] de Phone Number [facility] [place] [address] * POCT Glucose (02/03/2019 4:40 PM EDT) Glucose, POC 160 65 - 199 mg/dL [facility] Comment: Supplemental ranges: <140 mg/dL before meals <180 mg/dL all other times of the day Blood specimen (specimen) 02/03/2019 4:40 PM EDT 02/03/2019 4:40 PM EDT Alessandro Limon DO POINT OF CARE TEST O RDERABLES Performing Organization Address [facility] Co de Phone Number [facility] [place] [address] * POCT Glucose (02/03/2019 11:41 AM EDT) Glucose, POC 169 65 - 199 mg/dL [facility] Comment: Supplemental ranges: <140 mg/dL before meals <180 mg/dL all other times of the day Blood specimen (specimen) 02/03/2019 11:41 AM EDT 02/03/2019 11:41 AM EDT Alessandro Limon DO POINT OF CARE TEST O RDERABLES Performing Organization Address [facility] de Phone Number [facility] [place] [address] * Heparin (unfractionated) Level (02/03/2019 10:02 AM EDT) Pathologist [facility] UF Heparin 0.33 IU/mL [facility] Comment: Guidelines for therapeutic unfractionated heparin [...] DO HEMATOLOGY ORDERABLE S Performing Organization Address [facility] de Phone Number [facility] [place] [address] * POCT Glucose (02/03/2019 7:14 AM EDT) Pathologist [facility] Glucose, POC 118 65 - 199 mg/dL [facility] Comment: Supplemental ranges: <140 mg/dL before meals <180 mg/dL all other times of the day Blood specimen (specimen) 02/03/2019 7:14 AM EDT 02/03/2019 7:14 AM EDT Alessandro Limon DO POINT OF CARE TEST O RDERABLES Performing Organization Address [facility] Co de Phone Number [facility] [place] [address] * Magnesium (02/03/2019 6:34 AM EDT) Magnesium 0.71 0.69 - 1.07 mmol/L [facility] Blood specimen (specimen) 02/03/2019 6:34 AM EDT 02/03/2019 6:41 AM EDT Narrative Resulting Agency Comment Spec In Lab Alessandro Limon DO CHEMISTRY ORDERABLES Performing Organization Address [facility] Co de Phone Number [facility] [place] [address] * (ABNORMAL) Basic Metabolic Panel (non-fasting) (02/03/2019 [...] of body mass or the acutely ill. [email or web address] eGFR 57(L) >=60 mL/min/1. 73 m?? [facility] Comment: The eGFR was calculated using the CKD-EPI equation. As with all creatinine based estimates of kidney function, eGFR values calculated with the CKD-EPI equation are not accurate in patients with acute kidney failure, extremes of body mass or the acutely ill. [email or web address] Blood specimen (specimen) 02/03/2019 6:34 AM EDT 02/03/2019 6:41 AM EDT Narrative Resulting Agency Comment Spec In Lab Alessandro Limon DO CHEMISTRY ORDERABLES Performing Organization Address City/State/[facility] Co de Phone Number [facility] [place] [address] * (ABNORMAL) Hemogram (02/03/2019 6:34 AM EDT) [...] DO HEMATOLOGY ORDERABLE S Performing Organization Address City/[facility]/ZIP Co de Phone Number [facility] [place] [address] * POCT Glucose (02/02/2019 10:04 PM EDT) Glucose, POC 188 65 - 199 mg/dL [facility] Comment: Supplemental ranges: <140 mg/dL before meals <180 mg/dL all other times of the day Blood specimen (specimen) 02/02/2019 10:04 PM EDT 02/02/2019 10:04 PM EDT Alessandro Limon DO POINT OF CARE TEST O RDERABLES [facility] [place] [address] * POCT Glucose (02/02/2019 7:54 PM EDT) Glucose, POC 101 65 - 199 mg/dL [facility] Comment: Supplemental ranges: <140 mg/dL before meals <180 mg/dL all other times of the day Blood specimen (specimen) 02/02/2019 7:54 PM EDT 02/02/2019 7:54 PM EDT Alessandro Limon DO POINT OF CARE TEST O RDERABLES Performing Organization Address [facility] Co de Phone Number [facility] [place] [address] * EKG 12 Lead (02/02/2019 7:26 PM EDT) Ventricular rate 65 BPM MUSE SYSTEM Atrial Rate 65 BPM MUSE SYSTEM P-R Interval 192 ms MUSE SYSTEM QRS Duration 116 ms MUSE SYSTEM Q-T Interval 440 ms MUSE SYSTEM QTC Calculated (Bezet) 457 ms MUSE SYSTEM Calculated P [place] 48 degrees MUSE SYSTEM Calculated R [place] -59 degrees MUSE SYSTEM Calculated T [place] 15 degrees MUSE SYSTEM INTERPRETATION Sinus rhythm with Premature atrial complexes Left anterior fascicular block Abnormal ECG When compared with ECG of 01-FEB-2019 01:00, T wave inversion no longer evident in Anterolateral leads Confirmed by MD Phillip Daniel ([id number]) on 02/03/2019 3:52:55 PM MUSE SYSTEM 02/02/2019 7:26 PM EDT 02/03/2019 3:52 PM EDT Alessandro Limon DO ECG ORDERABLES Performing Organization Address [facility] Co de Phone Number MUSE SYSTEM * CARDIAC CATHETERIZATION (02/02/2019 6:59 PM EDT) Anatomical Region Laterality Modality Other Narrative 02/03/2019 1:49 AM EDT ?[facility] ? Cardiac Catheterization/Intervention Report ? Patient Name: Ethel Bolden P. ? Procedure Date: 02/02/2019 ? A #: [id number] ? Primary Physician: Toro, Bobby T ? Case #: [id number] ? File Name: [id number] ? Catheterization Order Number: [id number] ? [facility] ? Final Report [place], [place] ? Patient Name: ? Ethel P. Tubiello ? ID#: ?[id number] ? : ?1950 ? Procedure Date: ? February 02, 2019 ?Case #: ? [id number] ? Room: ? 2 ? Case Physician: [...] procedure was Urgent. The indication for ?the microbiology laboratory manager visit is ACS less than or equal [...] on chronic DAPT on arrival to the microbiology laboratory manager. ?Recommend continuing clopidogrel 75 mg PO daily [...] Procedure Note Bobby Engel MD - 06/25/2019 [facility] Cardiac Catheterization/Intervention Report Patient Name: Ethel Bolden Procedure Date: 02/02/2019 A #: [id number] Primary Physician: Bobby Engel Case #: File Name: [id number] Catheterization Order Number: [id number] [facility] FinalReport [place], [place] Patient Name: Ethel Bolden ID#:[id number] :1950 Procedure Date: February 02, 2019 Case [...] was designated as ASAClass III. The [facility] clinical frailty scale is 6: Moderately Frail. Diagnostic Tests: Prior Coronary Angiography: LV ejection fraction within 6 months is 55%. Electrocardiography: EKG was assessed by ECG. EKG was Abnormal. EKG showed T-wave inversions. Medications Prior to Procedure: ASA and Statin. Indications for Diagnostic Cath: The priority of the diagnostic procedure was Urgent. The indicationfor the microbiology laboratory manager visit is ACS less than or equal [...] The lesion was predilated with a 2.00mm [id number] MM balloon with a maximum inflation pressure [...] on chronic DAPT on arrival to the microbiology laboratory manager. Recommend continuing clopidogrel 75 mg PO daily [...] Calcium, POC 1.15 1.15 - 1.33 mmol/L [facility] POC Hematocrit 41.0 40.0 - 51.0 % [facility] POC Calc Hgb 13.9 13.7 - 17.5 gm/dL [facility] Comment:The calculation of h emoglobin from hematocrit assumes a normal MCHC. POC Bgas Loc CC LAB [facility] Blood specimen (specimen) 02/02/2019 6:15 PM EDT 02/04/2019 1:23 PM EDT Alessandro Limon DO CHEMISTRY ORDERABLES Performing Organization Address [facility] Co de Phone Number [facility] [place] [address] * POCT Glucose (02/02/2019 4:16 PM EDT) Glucose, POC 114 65 - 199 mg/dL [facility] Comment: Supplemental ranges: <140 mg/dL before meals <180 mg/dL all other times of the day Blood specimen (specimen) 02/02/2019 4:16 PM EDT 02/02/2019 4:16 PM EDT Alessandro Limon DO POINT OF CARE TEST O RDERABLES Performing Organization Address City/[facility] Co de Phone Number [facility] [place] [address] * XR Chest One View (02/02/2019 3:30 [...] MEDICAL CENTER LABORATORY FIO2 Art 70 % [facility] PF Ratio Art 147 [facility] Blood specimen (specimen) 02/02/2019 3:23 PM EDT 02/02/2019 3:23 PM EDT Alessandro Limon DO POINT OF CARE TEST O RDERABLES Performing Organization Address City/[facility] Co de Phone Number [facility] [place] [address] * POCT Glucose (02/02/2019 12:44 PM EDT) Pathologist [facility] Glucose, POC 129 65 - 199 mg/dL [facility] Comment: Supplemental ranges: <140 mg/dL before meals <180 mg/dL all other times of the day Blood specimen (specimen) 02/02/2019 12:44 PM EDT 02/02/2019 12:44 PM EDT Alessandro Limon DO POINT OF CARE TEST O RDERABLES Performing Organization Address [facility] Co de Phone Number [facility] [place] [address] * Heparin (unfractionated) Level (02/02/2019 12:33 PM EDT) [facility] UF Heparin 0.29 IU/mL [facility] Comment: Guidelines for therapeutic unfractionated heparin [...] MD HEMATOLOGY ORDERABLE S Performing Organization Address [facility] Co de Phone Number [facility] [place] [address] * POCT Glucose (02/02/2019 11:31 AM EDT) Glucose, POC 144 65 - 199 mg/dL [facility] Comment: Supplemental ranges: <140 mg/dL before meals <180 mg/dL all other times of the day Blood specimen (specimen) 02/02/2019 11:31 AM EDT 02/02/2019 11:31 AM EDT Alessandro Limon DO POINT OF CARE TEST O RDERABLES Performing Organization Address [facility] de Phone Number [facility] [place] [address] * (ABNORMAL) POCT Glucose (02/02/2019 8:23 AM EDT) Glucose, POC 217(H) 65 - 199 mg/dL [facility] Comment: Supplemental ranges: <140 mg/dL before meals <180 mg/dL all other times of the day Blood specimen (specimen) 02/02/2019 8:23 AM EDT 02/02/2019 8:23 AM EDT Alessandro Limon DO POINT OF CARE TEST O TED Performing Organization Address [facility] Co de Phone Number [facility] [place] [address] * Heparin (unfractionated) Level (02/02/2019 6:12 AM EDT) UF Heparin 0.32 IU/mL [facility] Comment: Guidelines for therapeutic unfractionated heparin [...] MD HEMATOLOGY ORDERABLE S Performing Organization Address [facility] de Phone Number [facility] [place] [address] * Magnesium (02/02/2019 6:12 AM EDT) Pathologist [facility] Magnesium 0.74 0.69 - 1.07 mmol/L [facility] Blood specimen (specimen) 02/02/2019 6:12 AM EDT 02/02/2019 6:33 AM EDT Narrative Resulting Agency Comment Spec In Lab Alessandro Limon DO CHEMISTRY ORDERABLES Performing Organization Address [facility] de Phone Number [facility] [place] [address] * (ABNORMAL) Basic Metabolic Panel (non-fasting) (02/02/2019 [...] of body mass or the acutely ill. [email or web address] eGFR 48(L) >=60 mL/min/1. 73 m?? [facility] Comment: The eGFR was calculated using the CKD-EPI equation. As with all creatinine based estimates of kidney function, eGFR values calculated with the CKD-EPI equation are not accurate in patients with acute kidney failure, extremes of body mass or the acutely ill. [email or web address] Blood specimen (specimen) 02/02/2019 6:12 AM EDT 02/02/2019 6:33 AM EDT Narrative Resulting Agency Comment Spec In Lab Alessandro Limon DO CHEMISTRY ORDERABLES [facility] [place] [address] * (ABNORMAL) Hemogram (02/02/2019 6:12 AM EDT) [...] CENTER LABORATORY Platelet 206 145 - 357 x10(3)/ L [facility] RDW Standard Deviation 45.8(H) 36.0 - 45.0 [facility] RDW coefficient of variation 13.8 11.4 - 13.8 % [facility] Mean Platelet Volume 9.9 7.6 - 12.9 [facility]ATORY NRBC% auto 0.0 % [facility] NRBC Absolute 0.000 0.000 - 0.000 x10(3)/ L [facility] Blood specimen (specimen) 02/02/2019 6:12 AM EDT 02/02/2019 6:33 AM EDT Narrative Resulting Agency Comment Spec In Lab Alessandro Limon DO HEMATOLOGY ORDERABLE S [facility] [place] [address] * POCT Glucose (02/02/2019 6:10 AM EDT) Glucose, POC 139 65 - 199 mg/dL [facility] Comment: Supplemental ranges: <140 mg/dL before meals <180 mg/dL all other times of the day Blood specimen (specimen) 02/02/2019 6:10 AM EDT 02/02/2019 6:10 AM EDT Alessandro Limon DO POINT OF CARE TEST O RDERABLES Performing Organization Address [facility] de Phone Number [facility] [place] [address] * Heparin (unfractionated) Level (02/01/2019 11:42 PM EDT) UF Heparin 0.24 IU/mL [facility] Comment: Guidelines for therapeutic unfractionated heparin [...] MD HEMATOLOGY ORDERABLE S Performing Organization Address [facility] de Phone Number [facility] [place] [address] * XR Chest PA or AP 1 [...] below. ? Electronically signed by: Aarti Bocanegra [facility] ([phone]), at 02/01/2019 10:52 PM Narrative 02/01/2019 10:52 [...] CARE TEST O TED Performing Organization Address [facility] de Phone Number [facility] [place] [address] * POCT Glucose (02/01/2019 5:02 PM EDT) Glucose, POC 145 65 - 199 mg/dL [facility] Comment: Supplemental ranges: <140 mg/dL before meals <180 mg/dL all other times of the day Blood specimen (specimen) 02/01/2019 5:02 PM EDT 02/01/2019 5:02 PM EDT Alessandro Limon DO POINT OF CARE TEST O TED Performing Organization Address [facility] de Phone Number [facility] [place] [address] * (ABNORMAL) Troponin (02/01/2019 4:50 PM EDT) [facility] Troponin-T 0.08(H) 0.00 - 0.00 ng/mL [facility] Comment: The 99th percentile for Troponin T is less than 0.01 ng/mL, any detectable cTnT concentration using this assay should be considered elevated. According to the third universal definition of myocardial infarction the following criteria with a clinical presentation consistent with acute myocardial ischemia meets the diagnosis for a myocardial infarction (PA). Detection of a rise and/or fall of cTnT, with at least one value greater than the 99th percentile (> or = 0.01) and with at least one of the following ?? Symptoms of ischemia ?? New or presumed new significant JH-jynhjfy-K wave (ST-T) changes or new left bundle [...] additional sample may be indicated. Reference: Third [place] Definition of Myocardial Infarction. Journal of the [place] [employer] 2012;60:1581-98 Blood specimen (specimen) 02/01/2019 4:50 PM EDT 02/01/2019 5:14 PM EDT Narrative Resulting Agency Comment Spec In Lab Anabel Duncan MD CHEMISTRY ORDERABLES [facility] [place] [address] * Heparin (unfractionated) Level (02/01/2019 4:50 PM EDT) UF Heparin 0.22 IU/mL [facility] Comment: Guidelines for therapeutic unfractionated heparin [...] MD HEMATOLOGY ORDERABLE S Performing Organization Address City/[facility]/ZIP Co de Phone Number [facility] [place] [address] * (ABNORMAL) Magnesium (02/01/2019 3:04 PM EDT) Magnesium 0.68(L) 0.69 - 1.07 mmol/L [facility] Blood specimen (specimen) 02/01/2019 3:04 PM EDT 02/01/2019 3:25 PM EDT Narrative Resulting Agency Comment Spec In Lab Alessandro Limon DO CHEMISTRY ORDERABLES Performing Organization Address [facility] Co de Phone Number [facility] [place] [address] * (ABNORMAL) Basic Metabolic Panel (non-fasting) (02/01/2019 3:04 PM EDT) Pathologist [facility] Glucose 129 65 - 199 mg/dL [facility] [...] of body mass or the acutely ill. [email or web address] eGFR 37(L) >=60 mL/min/1. 73 m?? [facility] Comment: The eGFR was calculated using the CKD-EPI equation. As with all creatinine based estimates of kidney function, eGFR values calculated with the CKD-EPI equation are not accurate in patients with acute kidney failure, extremes of body mass or the acutely ill. [email or web address] Blood specimen (specimen) 02/01/2019 3:04 PM EDT 02/01/2019 3:25 PM EDT Narrative Resulting Agency Comment Spec In Lab Alessandro Limon DO CHEMISTRY ORDERABLES Performing Organization Address City/[facility] Co de Phone Number [facility] [place] [address] * POCT Glucose (02/01/2019 11:22 AM EDT) Glucose, POC 116 65 - 199 mg/dL [facility] Comment: Supplemental ranges: <140 mg/dL before meals <180 mg/dL all other times of the day Blood specimen (specimen) 02/01/2019 11:22 AM EDT 02/01/2019 11:22 AM EDT Alessnadro Limon DO POINT OF CARE TEST O RDERABLES Performing Organization Address City/[facility]/ZIP Co de Phone Number [facility] [place] [address] * Heparin (unfractionated) Level (02/01/2019 10:58 AM EDT) UF Heparin 0.15 IU/mL [facility] Comment: Guidelines for therapeutic unfractionated heparin [...] [facility] Co de Phone Number [facility] [place] [address] * ECHO COMPLETE W CONTRAST (02/01/2019 10:38 AM EDT) Anatomical Region Laterality Modality Other 02/01/2019 Narrative 02/01/2019 10:52 AM EDT Amended Report Procedure: ?Transthoracic Echocardiogram Patient: ?MABLE DAVENPORT P ? (Age): 1950(68y) Med Rec#: ? [id number] ?Sex: ?M ? [facility] ? [facility] ?Ht / Wt: ??177(cm)/104(kg) Pt. Loc: ?Adult Floor ? BSA: ?2.2 Study Date: ?? 02/01/2019 ?Pt. Type: Inpatient Tape: ? Referring: Anabel Duncan Reading: Gibson Rooney ([id number]) Call Taker: Kameron Miller [facility] Diagnosis: *Paroxysmal atrial fibrillation (I48.0) Rhythm: ? [...] ? Mid-Inferior ?Hypokinetic ? Mid-Inferoseptal ?Hypokinetic ? Martin-Septal ? Hypokinetic ? Martin-Anterior ? Normal ? Martin-Lateral ?Hypokinetic ? Martin-Inferior ? Hypokinetic ? Martin-Tip ?Hypokinetic ? This report has been electronically signed by: Gibson Rooney MD ? 02/01/2019 13:30:01 Images reviewed and interpretation verified [facility] Procedure Note Gibson Rooney MD - 02/01/2019 Amended Report Procedure: Transthoracic Echocardiogram Patient: MABLE DORANTES(Age): 1950(68y) Med Rec#: [id number] Sex: M Site Loc: [facility] Ht / Wt: 177(cm)/104(kg) Pt. Loc: Adult Floor BSA: 2.2 Study Date: 02/01/2019 Pt. Type: Inpatient Tape: Referring: Anabel Duncan Reading: Gibson Rooney ([id number]) Call Taker: Kameron Miller [facility] Diagnosis: *Paroxysmal atrial fibrillation (I48.0) Rhythm: A-Fib [...] Hypokinetic Mid-Posterolateral Akinetic Mid-Inferior Hypokinetic Mid-Inferoseptal Hypokinetic Martin-Septal Hypokinetic Martin-Anterior Normal Martin-Lateral Hypokinetic Martin-Inferior Hypokinetic Martin-Tip Hypokinetic This report has been electronically signed by: Gibson Rooney MD 02/01/2019 13:30:01 Images reviewed and interpretation verified [facility] Anabel Duncan MD ECHO [...] meets the diagnosis for a myocardial infarction (PA). Detection of a rise and/or fall of cTnT, with at least one value greater than the 99th percentile (> or = 0.01) and with at least one of the following ?? Symptoms of ischemia ?? New or presumed new significant UB-vwnpgwv-S wave (ST-T) changes or new left bundle [...] additional sample may be indicated. Reference: Third [place] Definition of Myocardial Infarction. Journal of the [place] [employer] 2012;60:1581-98 Blood specimen (specimen) 02/01/2019 7:40 AM EDT 02/01/2019 7:47 AM EDT Narrative Resulting Agency Comment Spec In Lab Nadia Haider APRN CHEMISTRY ORDERABL ES [facility] [place] [address] * (ABNORMAL) Differential, Automated (02/01/2019 7:40 AM EDT) Neutrophil % 77.0 % [facility] Neutrophil Absolute 7.40(H) 1.70 - 6.10 x10(3)/mc L [facility] Lymph % 13.0 % [facility] Lymphocytes Abs 1.2 0.9 - 3.2 x10(3)/mc L [facility] Monocyte % 8.1 % [facility] Monocyte Abs 0.8 0.3 - 0.9 x10(3)/mc L [facility] Eos % 1.2 % [facility] Eosinophils Abs 0.1 0.0 - 0.4 x10(3)/mc L [facility] Basophil % 0.5 % [facility] Baso [...] ORDERABLE S [facility] [place] [address] * (ABNORMAL) Hemogram (02/01/2019 7:40 AM EDT) [...] MD HEMATOLOGY ORDERABLE S Performing Organization Address [facility] de Phone Number [facility] [place] [address] * POCT Glucose (02/01/2019 6:22 AM EDT) Pathologist [facility] Glucose, POC 121 65 - 199 mg/dL [facility] Comment: Supplemental ranges: <140 mg/dL before meals <180 mg/dL all other times of the day Blood specimen (specimen) 02/01/2019 6:22 AM EDT 02/01/2019 6:22 AM EDT Anabel Duncan MD POINT OF CARE TEST O RDERABLES Performing Organization Address [facility] de Phone Number [facility] [place] [address] * (ABNORMAL) BLOOD GAS 2 ARTERIAL (02/01/2019 4:14 AM EDT) [facility] Signature pH, Arterial 7.46(H) 7.35 - 7.45 [facility] [...] MEDICAL CENTER LABORATORY FIO2 Art 60 % [facility] PF Ratio Art 203 [facility] Blood specimen (specimen) 02/01/2019 4:14 AM EDT 02/01/2019 4:14 AM EDT Anabel Duncan MD POINT OF CARE TEST O RDERABLES [facility] [place] [address] * Heparin (unfractionated) Level (02/01/2019 3:10 AM EDT) UF Heparin 0.17 IU/mL [facility] Comment: Guidelines for therapeutic unfractionated heparin [...] MD HEMATOLOGY ORDERABLE S Performing Organization Address [facility]/State/[facility] Co de Phone Number [facility] [place] [address] * (ABNORMAL) Differential, Automated (02/01/2019 3:10 AM EDT) Neutrophil % 77.6 % [facility] Neutrophil Absolute 8.18(H) 1.70 - 6.10 x10(3)/mc L [facility] Lymph % 11.9 % [facility] Lymphocytes Abs 1.2 0.9 - 3.2 x10(3)/mc L [facility] Monocyte % 8.5 % [facility] Monocyte Abs 0.9 0.3 - 0.9 x10(3)/mc L [facility] Eos % 1.2 % [facility] Eosinophils Abs 0.1 0.0 - 0.4 x10(3)/mc L [facility] Basophil % 0.4 % [facility] Baso [...] ORDERABLE S [facility] [place] [address] * (ABNORMAL) Hemogram (02/01/2019 3:10 AM EDT) [...] ORDERABLE S [facility] [place] [address] * (ABNORMAL) Basic Metabolic Panel (non-fasting) (02/01/2019 [...] of body mass or the acutely ill. [email or web address] eGFR 48(L) >=60 mL/min/1. 73 m?? [facility] Comment: The eGFR was calculated using the CKD-EPI equation. As with all creatinine based estimates of kidney function, eGFR values calculated with the CKD-EPI equation are not accurate in patients with acute kidney failure, extremes of body mass or the acutely ill. [email or web address] Blood specimen (specimen) 02/01/2019 3:10 AM EDT 02/01/2019 3:20 AM EDT Narrative Resulting Agency Comment Spec In Lab Anabel Duncan MD CHEMISTRY ORDERABLES Performing Organization Address [facility] Co de Phone Number [facility] [place] [address] * EKG 12 Lead (02/01/2019 1:00 AM EDT) Ventricular rate 63 BPM MUSE SYSTEM Atrial Rate 63 BPM MUSE SYSTEM P-R Interval 184 ms MUSE SYSTEM QRS Duration 108 ms MUSE SYSTEM Q-T Interval 442 ms MUSE SYSTEM QTC Calculated (Bezet) 452 ms MUSE SYSTEM Calculated P [place] 72 degrees MUSE SYSTEM Calculated R [place] -54 degrees MUSE SYSTEM Calculated T [place] 118 degrees MUSE SYSTEM INTERPRETATION Sinus rhythm with Premature atrial complexes Left axis deviation ST & T wave abnormality, consider anterolateral ischemia Abnormal ECG When compared with ECG of 31-JAN-2019 18:31, (unconfirmed) Atrial bigeminy is no longer present Confirmed by MD Jonatan, Guille Almonte ([id number]) on 02/01/2019 3:56:21 PM MUSE SYSTEM 02/01/2019 1:00 AM EDT 02/01/2019 3:56 PM EDT Nadia Haider APRN ECG ORDERABLES Performing Organization Address [facility] Co de Phone Number MUSE SYSTEM * (ABNORMAL) Troponin (01/31/2019 11:33 PM EDT) Troponin-T 0.07(H) 0.00 - 0.00 ng/mL [facility] Comment: The 99th percentile for Troponin T is less than 0.01 ng/mL, any detectable cTnT concentration using this assay should be considered elevated. According to the third universal definition of myocardial infarction the following criteria with a clinical presentation consistent with acute myocardial ischemia meets the diagnosis for a myocardial infarction (PA). Detection of a rise and/or fall of cTnT, with at least one value greater than the 99th percentile (> or = 0.01) and with at least one of the following ?? Symptoms of ischemia ?? New or presumed new significant AN-ntziour-M wave (ST-T) changes or new left bundle [...] additional sample may be indicated. Reference: Third [place] Definition of Myocardial Infarction. Journal of the [place] [employer] 2012;60:1581-98 Blood specimen (specimen) 01/31/2019 11:33 PM EDT 01/31/2019 11:36 PM EDT Narrative Resulting Agency Comment Spec In Lab Anabel Duncan MD CHEMISTRY ORDERABLES Performing Organization Address City/State/[facility] Co de Phone Number [facility] [place] [address] * XR Chest PA or AP 1 [...] below. ? Electronically signed by: Aarti Bocanegra [facility] ([phone]), at 02/01/2019 12:08 AM Narrative 02/01/2019 12:08 [...] number below. Electronically signed by: Aarti Bocanegra [facility]([phone]), at 02/01/2019 12:08 AM Nadia Haider APRN IMG DX ORDERABLES * POCT Glucose (01/31/2019 8:50 PM EDT) [facility] Signature Glucose, POC 145 65 - 199 mg/dL [facility] Comment: Supplemental ranges: <140 mg/dL before meals <180 mg/dL all other times of the day Blood specimen (specimen) 01/31/2019 8:50 PM EDT 01/31/2019 8:50 PM EDT Anabel Duncan MD POINT OF CARE TEST O RDERABLES [facility] [place] [address] * (ABNORMAL) Differential, Automated (01/31/2019 8:36 PM EDT) Neutrophil % 81.4 % [facility] Neutrophil Absolute 9.84(H) 1.70 - 6.10 x10(3)/mc L [facility] Lymph % 8.6 % [facility] Lymphocytes Abs 1.0 0.9 - 3.2 x10(3)/ L [facility] Monocyte % 8.5 % [facility] Monocyte Abs 1.0(H) 0.3 - 0.9 x10(3)/mc L [facility] Eos % 0.8 % [facility] Eosinophils Abs 0.1 0.0 - 0.4 x10(3)/mc L [facility] Basophil % 0.3 % [facility] Blood specimen (specimen) 01/31/2019 8:36 PM EDT 01/31/2019 8:40 PM EDT Narrative Resulting Agency Comment Spec In Lab Anabel Duncan MD HEMATOLOGY ORDERABLE S Performing Organization Address City/[facility]/[place] [address] * (ABNORMAL) Hemogram (01/31/2019 8:36 PM EDT) White Blood Cell 12.1(H) 4.0 - 9.5 x10(3)/mc L [facility] RDW Standard Deviation 45.2(H) 36.0 - 45.0 [facility] RDW coefficient of variation 13.6 11.4 - 13.8 % [facility] Mean Platelet Volume 9.3 7.6 - 12.9 [facility] NRBC% auto 0.0 % [facility] NRBC Absolute 0.000 0.000 - 0.000 x10(3)/mc L [facility] Blood specimen (specimen) 01/31/2019 8:36 PM EDT 01/31/2019 8:40 PM EDT Narrative Resulting Agency Comment Spec In Lab Anabel Duncan MD HEMATOLOGY ORDERABLE S [facility] [place] [address] * Heparin (unfractionated) Level (01/31/2019 8:36 PM EDT) Pathologist [facility] Heparin <0.04 IU/mL [facility] Comment: Guidelines for therapeutic unfractionated heparin [...] ORDERABLE S [facility] [place] [address] * EKG 12 Lead (01/31/2019 4:28 PM EDT) Ventricular rate 70 BPM MUSE SYSTEM Atrial Rate 70 BPM MUSE SYSTEM P-R Interval 218 ms MUSE SYSTEM QRS Duration 106 ms MUSE SYSTEM Q-T Interval 416 ms MUSE SYSTEM QTC Calculated (Bezet) 449 ms MUSE SYSTEM Calculated P [place] 46 degrees MUSE SYSTEM Calculated R [place] -61 degrees MUSE SYSTEM Calculated T [place] 131 degrees MUSE SYSTEM INTERPRETATION Sinus rhythm with 1st degree A-V block Occasional Premature ventricular complexes and Premature atrial complexes Left axis deviation ST & T wave abnormality, consider anterolateral ischemia Abnormal ECG When compared with ECG of 31-JAN-2019 11:21, (unconfirmed) Sinus rhythm has replaced Atrial flutter T wave inversion now evident in Anterior leads Confirmed by MD Jonatan, Guille Almonte ([id number]) on 02/01/2019 3:45:40 PM MUSE SYSTEM 01/31/2019 4:28 PM EDT 02/01/2019 3:45 PM EDT Anabel Duncan MD ECG ORDERABLES Performing Organization Address City/[facility] Co de Phone Number MUSE SYSTEM * CK (01/31/2019 4:20 PM EDT) Creatine Kinase 127 0 - 200 unit/L [facility] Blood specimen (specimen) Venous Draw / Unknown 01/31/2019 4:20 PM EDT 01/31/2019 6:02 PM EDT Narrative Resulting Agency Comment Spec In Lab Anabel Duncan MD CHEMISTRY ORDERABLES Performing Organization Address [facility] Co de Phone Number [facility] [place] [address] * Lavender Tube HOLD (01/31/2019 4:20 PM EDT) Lavender Hold Sample in lab. [facility] Blood specimen (specimen) Venous Draw / Unknown 01/31/2019 4:20 PM EDT 01/31/2019 4:37 PM EDT Rocky Wong MD HEMATOLOGY ORDERABL ES Performing Organization Address [facility] de Phone Number [facility] [place] [address] * (ABNORMAL) Basic Metabolic Panel (non-fasting) (01/31/2019 [...] of body mass or the acutely ill. [email or web address] eGFR 35(L) >=60 mL/min/1. 73 m?? [facility] Comment: The eGFR was calculated using the CKD-EPI equation. As with all creatinine based estimates of kidney function, eGFR values calculated with the CKD-EPI equation are not accurate in patients with acute kidney failure, extremes of body mass or the acutely ill. [email or web address] Blood specimen (specimen) 01/31/2019 4:20 PM EDT 01/31/2019 4:37 PM EDT Narrative Resulting Agency Comment Spec In Lab Anabel Duncan MD CHEMISTRY ORDERABLES [facility] [place] [address] * (ABNORMAL) Troponin (01/31/2019 4:20 PM EDT) [...] meets the diagnosis for a myocardial infarction (PA). Detection of a rise and/or fall of cTnT, with at least one value greater than the 99th percentile (> or = 0.01) and with at least one of the following ?? Symptoms of ischemia ?? New or presumed new significant FB-txaqeyt-S wave (ST-T) changes or new left bundle [...] additional sample may be indicated. Reference: Third [place] Definition of Myocardial Infarction. Journal of the [place] [employer] 2012;60:1581-98 Blood specimen (specimen) 01/31/2019 4:20 PM EDT 01/31/2019 4:37 PM EDT Narrative Resulting Agency Comment Spec In Lab Mundo Yeung MD CHEMISTRY ORDERABLES [facility] [place] [address] * US Renal Transplant Left (01/31/2019 2:34 [...] 02:47 pm) PATIENT INFO: ID #: ? [id number] ? : 46 (68 yrs) Name: ? ETHEL BOLDEN ? Visit Date:01/31/2019 02:30 pm PERFORMED BY: Performed By: ? Osmar Dowd RDMS Attending: ?Jolly Payne MD Referred By: ?MUNDO YEUNG Location: ? [facility] SERVICE(S) PROVIDED: ??URTPL - Renal Transplant - Left - [id number] ?[id number] INDICATIONS: ??h/o kidney transplant in 2016. decreased [...] ?Patent Mid: ? Patent Distal: ?Patent LEFT Belkofski Iliac ? Waveform ?? Artery To Anastomos ?is Proximal: ?Patent LEFT [place] Iliac ? Waveform ?Vein To Anastomos ?is Proximal: ?Patent PARENCHYMAL EVALUATION: RIGHT ?Arcuate ? RI ??Waveform ?Artery Upper Pole: ?0.6 Patent Mid Pole: ?0.6 Patent Lower Pole: ?0.6 Patent URINARY BLADDER: Comment: ?Partially distended and unremarkable. Procedure Note YenJolly MD - 01/31/2019 Transplant (Signed Final 01/31/2019 02:47pm) PATIENT INFO: ID #: [id number] : 46 (68 yrs) Name: ETHEL Gomez MABLE Visit Date:01/31/2019 02:30 pm PERFORMED BY: Performed By: Osmar Dowd RDMS Attending: Jolly Payne MD Referred By: MUNDO YEUNG Location: [facility] SERVICE(S) PROVIDED: URTPL - Renal Transplant - Left - [id number] INDICATIONS: h/o kidney transplant in 2016. decreased urine output. COMPARISON: 12/28/15 renal transplant ultrasound RENAL ALLOGRAFT: Size (cm) L: 11.5 Cortical Thickness: Normal Corticomedullary Differention: Normal Echogenicity: Normal Perinephric Fluid/Collections: No collection identified Hydronephrosis: No sonographic evidence Comment: SWETA renal transplant RENAL TRANSPLANT DUPLEX: LEFT Main Renal PSV EDV RIR Waveform Artery (cm/s) (cm/s) Proximal: 31.5 7.9 0.7 Patent Distal: 28.8 8.1 0.7 Patent LEFT Main Renal Waveform Vein Proximal: Patent Mid: Patent Distal: Patent LEFT Belkofski Iliac Waveform Artery To Anastomos is Proximal: Patent LEFT Belkofski Iliac Waveform Vein To Anastomos is Proximal: [...] /HPF [facility] WBC, Urine 1 0 - 3 /HPF [facility] Urine specimen (specimen) 01/31/2019 11:57 AM EDT 01/31/2019 12:34 PM EDT Narrative Resulting Agency Comment Spec In Lab Rocky Wong MD URINE ORDERABLES [facility] [place] [address] * Gold Tube HOLD (01/31/2019 11:57 AM EDT) Gold Hold Sample in lab. [facility] Blood specimen (specimen) Venous Draw / Unknown 01/31/2019 11:57 AM EDT 01/31/2019 12:31 PM EDT Rocky Wong MD CHEMISTRY ORDERABLE S Performing Organization Address City/[facility]/ZIP Co de Phone Number [facility] [place] [address] * Blue Tube HOLD (01/31/2019 11:57 AM EDT) Pathologist [facility] Blue Hold Sample in lab. [facility] Blood specimen (specimen) Venous Draw / Unknown 01/31/2019 11:57 AM EDT 01/31/2019 12:32 PM EDT Rocky Wong MD HEMATOLOGY ORDERABL ES Performing Organization Address [facility] Co de Phone Number [facility] [place] [address] * (ABNORMAL) Differential, Automated (01/31/2019 11:57 AM EDT) [facility] Neutrophil % 74.9 % [facility] Neutrophil Absolute 8.74(H) 1.70 - 6.10 x10(3)/mc L [facility] Lymph % 15.8 % [facility] Lymphocytes Abs 1.8 0.9 - 3.2 x10(3)/mc L [facility] Monocyte % 7.6 % [facility] Monocyte Abs 0.9 0.3 - 0.9 x10(3)/mc L [facility] Eos % 1.0 % [facility] Eosinophils Abs 0.1 0.0 - 0.4 x10(3)/mc L [facility] Basophil % 0.4 % [facility] Baso [...] ORDERABL ES [facility] [place] [address] * (ABNORMAL) Hemogram (01/31/2019 11:57 AM EDT) White Blood Cell 11.7(H) 4.0 - 9.5 x10(3)/ L [facility] [...] MD HEMATOLOGY ORDERABL ES Performing Organization Address [facility]/ZIP Co de Phone Number [facility] [place] [address] * Electrolytes, urine, random (01/31/2019 11:57 AM EDT) Sodium, Urine <20 mmol/L [facility] Potassium, Urine 39 mmol/L [facility] Chloride, Urine <20 mmol/L [facility] Urine specimen (specimen) 01/31/2019 11:57 AM EDT 01/31/2019 12:34 PM EDT Narrative Resulting Agency Comment Spec In Lab Mundo Yeung MD URINE ORDERABLES Performing Organization Address [facility]/ZIP Co de Phone Number [facility] [place] [address] * (ABNORMAL) Troponin (01/31/2019 11:57 AM EDT) [...] meets the diagnosis for a myocardial infarction (PA). Detection of a rise and/or fall of cTnT, with at least one value greater than the 99th percentile (> or = 0.01) and with at least one of the following ?? Symptoms of ischemia ?? New or presumed new significant EO-rqlxsiv-F wave (ST-T) changes or new left bundle [...] additional sample may be indicated. Reference: Third [place] Definition of Myocardial Infarction. Journal of the [place] [employer] 2012;60:1581-98 Blood specimen (specimen) 01/31/2019 11:57 AM EDT 01/31/2019 12:30 PM EDT Narrative Resulting Agency Comment Spec In Lab Mundo Yeung MD CHEMISTRY ORDERABLES [facility] [place] [address] * (ABNORMAL) Urinalysis with reflex Culture (01/31/2019 [...] [place] [facility] Appearance, Urine Dipstick Clear Clear [facility] Specific [place] Urine Automated 1.023 1.002 - 1.030 [facility] Color, Urine Dipstick Yellow Yellow [facility] Reflex to Culture No [facility] Urine specimen (specimen) 01/31/2019 11:57 AM EDT 01/31/2019 12:34 PM EDT Narrative Resulting Agency Comment Spec In Lab Mundo Yeung MD URINE ORDERABLES [facility] [place] [address] * (ABNORMAL) Basic Metabolic Panel (non-fasting) (01/31/2019 [...] of body mass or the acutely ill. [email or web address] eGFR 43(L) >=60 mL/min/1. 73 m?? [facility] Comment: The eGFR was calculated using the CKD-EPI equation. As with all creatinine based estimates of kidney function, eGFR values calculated with the CKD-EPI equation are not accurate in patients with acute kidney failure, extremes of body mass or the acutely ill. [email or web address] Blood specimen (specimen) 01/31/2019 11:57 AM EDT 01/31/2019 12:30 PM EDT Narrative Resulting Agency Comment Spec In Lab Mundo Yeung MD CHEMISTRY ORDERABLES Performing Organization Address [facility] Co de Phone Number [facility] [place] [address] * EKG 12 Lead (01/31/2019 11:21 AM EDT) Ventricular rate 147 BPM MUSE SYSTEM Atrial Rate 294 BPM MUSE SYSTEM QRS Duration 100 ms MUSE SYSTEM Q-T Interval 334 ms MUSE SYSTEM QTC Calculated (Bezet) 522 ms MUSE SYSTEM Calculated R [place] -58 degrees MUSE SYSTEM Calculated T [place] 68 degrees MUSE SYSTEM INTERPRETATION Atrial flutter with 2:1 A-V conduction Left anterior fascicular block Nonspecific ST and T wave abnormality Abnormal ECG When compared with ECG of 04-NOV-2017 12:43, Significant changes have occurred Confirmed by MD SARA, LARRY ([id number]) on 01/31/2019 5:35:44 PM MUSE SYSTEM 01/31/2019 11:2 1 AM EDT 01/31/2019 5:35 PM EDT Mundo Yeung MD ECG ORDERABLES Performing Organization Address City/[facility] Co [...] Starting on Laura 02/03/19 at 0810, Until Thu02/05/19 at 1804, Wheezing, Routine levothyroxine (SYNTHROID) tablet [...] response: Approved indication of non-valvular atrial fibrillation 8626 (Given - Provider: Emmy Purdy RN) 0827 (Given - Provider: Emmy Purdy, JADEN)215 (Given - Provider: Jovanna Abrams, RN) 09 (Given - Provider: Shannan Aguillon RN) ascorbic acid (Vitamin C) tablet 500 mg 500 mg, Oral, 3 TIMES DAILY, First dose on Thu01/31/19 at 2100, Until Discontinued, Routine 0918 (Given - Provider: Barron Epstein, JADEN)1707 (Given - Provider: Emmy Purdy RN)2040 (Given - Provider: Betzaida Sparks RN) 08 (Given - Provider: Emmy Purdy, JADEN)173 (Given - Provider: Emmy Purdy RN)215 (Given - Provider: Jovanna Abrams, JADEN) 09 (Given - Provider: Shannan Aguillon RN)1549 (Given - Provider: Shannan Aguillon, JADEN) aspirin [...] 1707 (Given - Provider: Emmy Purdy RN) 173 [...] Epstein RN) 0825 (Given - Provider: Emmy Purdy RN) 0929 (Given - Provider: Shannan Aguillon RN) furosemide [...] 09 (Given - Provider: Barron Epstein RN) 0823 (Given - Provider: Emmy Purdy RN) 0936 (Given - Provider: Shannan Aguillon, RN) [...] parameters not met)1151 (Given - Provider: Barron Epsteni RN)1711 (Given - Provider: Emmy Purdy RN) 0703 (Given - Provider: Betzaida Sparks RN - Comment: 152)1212 (Given - Provider: Emmy Purdy, JADEN)1739 (Given - Provider: Emmy Purdy, RN) 0730 (Not Given - Provider: Shannan Aguillon RN - Reason: Order parameters not met)1210 (Given - Provider: Shannan Aguillon, JADEN) ipratropium-albuterol (DUONEB) 0.5 mg-3 mg(2.5 mg base)/3 mL nebulizer solution 3 mL (COMPLETED) 3 mL, Nebulization, ONCE, 1 dose, On 02/03/19 at 0245, STAT 0245 (Given - Provider: Bryn Crowe, JADEN) levothyroxine (SYNTHROID) tablet 137 mcg 137 mcg, Oral, DAILY, First dose on Thu02/01/19 at 0900, Until Discontinued, Routine 0949 (Given - Provider: Barron Epstein, RN) 0826 (Given - Provider: Emmy Purdy, RN) 0928 (Given - Provider: Shannan Aguillon, [...] Bryn Crowe RN)0600 (Given - Provider: Bryn Crowe, JDAEN)1150 (Given - Provider: Barron Epstein, JADEN)1708 (Given - Provider: Emmy Purdy, JADEN)2319 (Given - Provider: Betzaida Sparks, JADEN) 0612 (Not Given - Provider: Betzaida Sparks, JADEN - Reason: Order parameters not met - [...] RN) 0823 (Given - Provider: Emmy Purdy RN)2158 (Given - Provider: Jovanna Abrams, RN) 09 (Given - Provider: Shannan Aguillon, RN) pantoprazole (PROTONIX) tablet 40 mg 40 mg, Oral, DAILY, First dose on Thu01/31/19 at 1641, Until Discontinued, DO NOT CRUSH OR OPEN 0916 (Given - Provider: Barron Epstein RN) 08 (Given - Provider: Emmy Purdy RN) 0928 (Given - Provider: Shannan Aguillon RN) potassium chloride (K-DUR/KLOR-CON) extended release tablet [...] patient., Routine 09 (Given - Provider: Barron Epstein RN)2039 (Given - Provider: Betzaida Sparks, JADEN) 08 (Given - Provider: Emmy Purdy, JADEN)2157 (Given - Provider: Jovanna Abrams, JADEN) 09 (Given - Provider: Shannan Aguillon RN) sodium chloride 0.9 % (flush) flush 5 mL 5 mL, Intravenous, 2 TIMES DAILY, First dose on Thu01/31/19 at 2100, Until Discontinued, Routine 09 (Not Given - Provider: Barron Epstein RN - Reason: Contraindicated)2040 (Given - Provider: Betzaida Sparks, JADEN) 09 (Given - Provider: Emmy Purdy, JADEN)2201 (Given - Provider: Jovanna Abrams, RN) 09 (Given - Provider: Shannan Aguillon, JADEN) tacrolimus (PROGRAF) capsule 1 mg(Linked Group 2) 1 mg, Oral, NIGHTLY, First dose on Thu01/31/19 at 2100, Until Discontinued, Routine 2040 (Given - Provider: Betzaida Sparks, RN) 220 (Given - Provider: Jovanna Abrams, RN) tacrolimus (PROGRAF) capsule 2 mg(Linked Group 2) 2 mg, Oral, EVERY MORNING, First dose on Thu02/01/19 at 0700, Until Discontinued, Routine 0917 (Given - Provider: Barron Epstein, RN) 0612 (Given - Provider: Betzaida Sparks, JADEN) 0608 (Given - Provider: Jovanna Abrams, JADEN) tamsulosin (FLOMAX) ER capsule 0.4 mg 0.4 mg, Oral, DAILY, First dose on Thu01/31/19 at 1930, Until Discontinued, DO NOT CRUSH OR OPEN, Routine 0916 (Given - Provider: Barron Epstein, JADEN) 0826 (Given - Provider: Emmy Purdy, JADEN) 0927 (Given - Provider: Shannan Aguillon RN) Continuous Medication Order 02/03/2019 02/04/2019 02/05/2019 furosemide (LASIX) 100 mg in sodium chloride 0.9% 100 mL infusion (CANCELED) 10 mg/hr (10 mL/hr), Intravenous, CONTINUOUS, Starting on Thu02/03/19 at 1630, Until Thu02/04/19 at 1250, Routine 1833 (New Bag - Provider: Emmy Purdy, JADEN) 0612 (New Bag - Provider: Betzaida Sparks, JADEN)1344 (Stopped - Provider: Emmy Purdy RN) heparin [...] Oral, EVERY 8 HOURS PRN, Starting on 01/31/19 at 1853, Until 02/05/19 at 1804, Pain, Maximum dose of acetaminophen is 4000 mg from all sources in 24 hours., Routine dextrose 50% intravenous solution 25-50 mL(Linked Group 4) 25-50 mL (12.5-25 g), Intravenous, EVERY 1 HOUR PRN, Starting on 01/31/19 [...] Routine documented in this encounter Care Teams Payroll Manager Relationship Specialty Start Date End Date Urbano Denis DO [address] [place] [address] [address] [place] [address] PCP - General 09/03/12 03/17/22 Hai STANLEY,Ruchi Nurse Clinic Transplant Surgery 07/30/15 documented as of this encounter
--- OUTSIDE RECORDS SUMMARY | 2024-04-04 14:02 | XMS_ITS | Encounter Summary ---
Author Organization Formerly [facility] [place] [address] Care Team Providers Care Bottling Supervisor Name Role Phone AdeelUrbano tocsano Primary Care Provider Encounter Details Date Type Department Care Team (Late st Contact Info) Description 09/24/2018 Orders Only [place] [phone] Tal Eagle MD [facility] [address] BK viremia Social History Tobacco Use Types [...] PM EDT Office Visit Cardiology at [address] [phone] Jay Urban MD [facility] [place] [address] 04/15/2024 10:00 AM EDT Hospital Encounter Non-Invasive [place] [phone] Arrived documented as of this encounter Goals Goal Patient Goal Type Associated Problems Recent Progress Patient-Stated? Author DH [place] Medication Compliance and Understanding Patient Facing Action Plan On track( 017 10:41 AM EDT) Selena Scott, [facility] Note: Patient Goal: Clear hepatitis C Timeframe to meet goal: within 12 weeks of therapy documented as of this encounter Results * BKV Quant Urine (09/12/2019 10:23 AM EDT) BKV Urine Result Not Detected [facility] BKV Urine Interp BK Virus Urine Result Interpretation Result: BK Virus not detected Specimen type: urine Assay Range: 2.80-7.80 log copies/mL (6.28x10^2 - 6.28x10^7 copies/mL) Methods: Quantitative real-time polymerase chain reaction (PCR) of viral DNA isolated from plasma was performed using [employer] BKV analyte-specific reagents and the [employer]aZOOM System that automates both nucleic acid isolation [...] [facility] [employer] (CG[facility]) Laboratory at [facility]. It has not been cleared or approved by the FDA. The laboratory is regulated under CLIA as qualified to perform high-complexity testing. This test is used for clinical purposes. It should not be regarded as investigational or for research. [facility] Comment: [VERIFIED DATE]09.17.19 Verified By:Tal Cleaning (Electronic Signature) Urine specimen (specimen) 09/12/2019 10:23 AM EDT 09/12/2019 11:59 AM EDT Narrative Resulting Agency Comment Spec In Lab Tal Eagle MD MOLECULAR ORDERAB LES Performing Organization Address City/[facility]/ZIP Co de Phone Number [facility] [place] [address] * Miscellaneous Lab request (09/12/2019 10:10 AM EDT) Label Request received in lab. [facility] Blood specimen (specimen) 09/12/2019 10:10 AM EDT 09/12/2019 10:23 AM EDT Narrative Resulting Agency Comment Spec In Lab Tal Eagle MD LAB SEND OUT ROCHELLE DICK Performing Organization Address [facility] Co de Phone Number [facility] [place] [address] documented in this encounter Visit Diagnoses Diagnosis BK viremia Viremia, unspecified documented in this encounter Care Teams Bottling Supervisor Relationship Specialty Start Date End Date Urbano Denis DO [employer] [address] [place] [address] PCP - General 09/03/12 03/17/22 Ruchi Valles RN Nurse Clinic Transplant Surgery 07/30/15 documented as of this encounter
--- OUTSIDE RECORDS SUMMARY | 2024-04-04 14:03 | XMS_ITS | Encounter Summary ---
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 Name Role Phone Urbano Denis DO Primary Care Provider Reason for Visit * Reason Comments Abdominal Pain * Auth/Cert Specialty Diagnoses / Procedures Referred By Humberto flor Referred To Contact Diagnoses Hydronephrosis Referral ID Status Reason Start Date Expiration Date Visits Re quested Visits Authorized [id number] 1 1 Encounter Details Date Type Department Care Team (Late st Contact Info) Description 06/16/2018 2:45 PM EST - 06/18/2018 3:00 PM EST Emergency [address] [place] [address] Nick Mendes MD [facility] [place] [address] Ari Lucero MD [facility] [place] [address] Jennifer Amaro MD [facility] [place] [address] H/O kidney transplant; S/P R TKA 11/25/17 [...] D deficiency ??? 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 CAH [...] or rigors on Thursday and presented to [facility] where he was worked up in [...] and emesis on Thursday prior to the [facility] visit.This spontaneously resolved and he has [...] calculus in the ureter of the LEFT [place] kidney with evidence of proximal hydroureter and [...] (WRVU 2.37) Operative Findings: 1. B/l orthotopic seminole UOs 2. 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 Normal bladder 4. No contrast passed proximally up left seminole ureter, unable to advance wire, distal ureter had been previously ligated Hospital Course: Ethel Akins was admitted to the Transplant Surgery service on 06/16/18 with RIGHT abdominal pain. Work up with CT scan and abdominal US was notable for hydronephrosis of left seminole ureter with 6x10mm stone. No evidence of sepsis or intraperitoneal process with reassuring imag ing/labs, benign abdominal exam and vital signs within normal limits. 06/17/18 the patient was taken to the OR with urology and retrograde ureteropyelogram confirmed, as noted in op report, that the L seminole ureter had been ligated during previous Boari [...] and given to the patient. Patient Instructions [facility] Department of Surgery Discharge Instructions PROCEDURES [...] with the Surgery nurses. The number is [phone]. - During the night or weekends call the [facility] soft work cigar machine operator at [phone] and ask to speak to the surgery resident telecom sales consultant for general surgery. Please note: Your surgeon may not be Pediatric Dermatologist, especially during the night or on weekends, [...] not hear anything, please call the clinic [phone] to confirm or reschedule. If you need a prior authorization, please call the General Surgery Clinic nurses [phone] for prior authorizations assistance General Instructions Instructions [...] to urinate, please call our office at [phone] before 5PM or [phone] after hours. Call Doctor for: - copious blood or large clots in your urine - you are unable to urinate - severe back or side pain - pain not controlled by oral medications at home - persistent nausea and vomiting - any fever > 101.3F The number for questions is [phone] before 5 PM weekdays and [phone] after 5 PM and weekends. Follow-up Recommendations [...] to urinate, please call our office at [phone] before 5PM or [phone] after hours. Call Doctor for: - copious blood or large clots in your urine - you are unable to urinate - severe back or side pain - pain not controlled by oral medications at home - persistent nausea and vomiting - any fever > 101.3F The number for questions is [phone] before 5 PM weekdays and [phone] after 5 PM and weekends. * Patient Instructions* Jennifer Palmer - 06/17/2018 5:29 PM EST [facility] Department of Surgery Discharge Instructions PROCEDURES [...] with the Surgery nurses. The number is [phone]. - During the night or weekends call the [facility] soft work cigar machine operator at [phone] and ask to speak to the surgery resident telecom sales consultant for general surgery. Please note: Your surgeon may not be Pediatric Dermatologist, especially during the night or on weekends, so be ready to describe yourself and your surgery when you call. FOLLOW UP You will have an appointment made with the transplant clinic- you will be contacted- please call with any questions Future Appointments Date Time Provider Department Center 06/18/2018 8:00 AM [facility] ROOM 8 [facility] information via phone/mail in the next week. If you do not hear anything, please call the clinic [phone] to confirm or reschedule. If you need a prior authorization, please call the General Surgery Clinic nurses [phone] for prior authorizations assistance documented in this [...] Amaro MD - 06/18/2018 1:49 PM EST [facility] Transplant Progress Note Patient Name: Ethel Akins : [id number] MR#: [id number] Admit Date: 06/16/2018 2:45 PM Mr. Akins is hospital day #2 following admission for right lower quadrant pain that radiates to the right testicle. I reviewed Dr. Arredondo's operative report yesterday and the records suggested that Dr. Arredondo ligated the left seminole ureter at the patient's Boari flap reconstruction operation that took place in 2015. This was likely to have explained the dilated left seminole kidney collecting system and hydroureter. I contacted [...] Intraoperative findings as follows: 1. B/l orthotopic seminole UOs 2. 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 Normal bladder 4. No contrast passed proximally up left seminole ureter, unable to advance wire, distal ureter [...] RLQ abdominal pain, found to have obstructed seminole LEFT ureter with 6x10mm stone 24h/S Reports [...] 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 ?? Transplant kidney: Transplant kidney [...] imaging showing 6x10mm obstructing stone in LEFT seminole ureter. He continues to report R>L Abdominal [...] Bah MD - 06/16/2018 6:16 PM EST [facility] Department of Transplant Surgery Inpatient Consult Note Patient Name: Ethel Akins Patient Age: 67 y.o. Birthdate: 1950 Admit date: 06/16/2018 Attending Physician: Ari Lucero MD REQUESTED BY: ED CONSULTATION QUESTION: Obstruction of L seminole ureter. CC: RLQ abd pain 67??y.o. male [...] EXTREMITY performed by Jennifer Amaro MD at [facility] OR ??? PRO REIMPLANT URETER, SINGLE URETER Left 05/20/2016 @URETERONEOCYSTOSTOMY ANASTOMOSIS OF SINGLE URETER TO BLADDER performed by Santosh Arredondo MD at [facility] OR ??? PRO REIMPLANT URETER, SINGLE URETER N/A 05/20/2016 @URETERONEOCYSTOSTOMY ANASTOMOSIS OF SINGLE URETER TO BLADDER performed by Jennifer Amaro MD at [facility] OR ??? PRO TOTAL KNEE ARTHROPLASTY Right 11/25/2017 TOTAL KNEE ARTHROPLASTY (WRVU 20.72) performed by Breezy Dale MD at [facility] OR ??? PRO TRANSPLANT, PREP CADAVER RENAL GRAFT N/A 09/16/2015 @PREPARATION CADAVERIC RENAL ALLOGRAFT performed by Franko Larkin MD at [facility] OR ??? PRO TRANSPLANTATION OF KIDNEY N/A 09/16/2015 @KIDNEY TRANSPLANT, WITHOUT RECIPIENT NEPHRECTOMY performed by Franko Larkin MD at [facility] OR Family History: Family History [...] on CT is a 6x10mm obstructing L seminole ureteral stone with new hydronephrosis. His appendix [...] or rigors on Thursday and presented to [facility] where he was worked up in their emergency department and received aRUQ US that did not demonstrate evidence of acute cholecystitis or a dilated biliary system. He wasdischarged home the same day and continued to experience low level gnawing pain in the RLQ that was in a 4-5 range. He had one episode of nausea and emesis on Thursday prior to the [facility] visit. This spontaneously resolved and he [...] calculus in the ureter of the LEFT [place] kidney with evidence of proximal hydroureter and hydronephrosis. There is no gas in the collecting system proximal to this obstruction. Review of Dr. Arredondo's 05/2016 operative report indicates that the left seminole ureter was ligated at that procedure which [...] need for therapy of the dilated left seminole kidney tract in the setting of the left seminole kidney ureter ligation in 2016. This is [...] home doses. Will verify this with the post-technical project coordinator team. Tacrolimus trough level pending and [...] Patient states that Thursday he presented to [facility] with what he thought was appendicitis; [...] this before. Had 2x cup coffee and yakut muffin today, but states that appetite has [...] 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 ?? Transplant kidney: Transplant kidney [...] mm renal calculous and new hydronephrosis in seminole kidney. He was seen by transplant medicine [...] residual kidney stone and obstruction in his seminole kidney on the left. Because of the tenuous nature of his transplant the transplant service would like to admit him. documented in this encounter Miscellaneous Notes * Op Note - Edinson Grider III, MD - 06/17/2018 3:45 PM EST [facility] Operative Note Patient Name: Ethel Akins : [id number] MR#: [id number] Case Date: 06/17/2018 Surgeon: Surgeon(s) and Role: * Edinson Grider III, MD - Primary * Shin Elam MD - Resident-Surgeon Chief Preoperative diagnosis: Hydronephrosis Postoperative diagnosis: Hydronephrosis Procedure(s) (LRB): CYSTO, RETROGRADE, URETEROPYELOGRAPHY (WRVU 2.37) (Left) Findings: 1. B/l orthotopic seminole UOs 2. 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 Normal bladder 4. No contrast passed proximally up left seminole ureter, unable to advance wire, distal ureter [...] bladder. 360 degree cystoscopy revealed b/l orthotopic seminole UOs and a widely patient reimplant ureter/Boari [...] an incidental finding of a hydronephrotic left seminole kidney with a 6 x 10 mid [...] Health/Prescription Coverage: Primary Insurance: MEDICARE Secondary Insurance: [employer] [facility] Prescription Coverage: Yes; can manage minimal out of pocket co-pays. Preferred Pharmacy: [facility]; mails prescriptions to pt's home. Primary Care Provider: Urbano Denis DO [phone] Patient/Caregiver Goals of Treatment: Effective pain management; effective stent placement with lessoning of hydronephrosis. Potential Needs for Transition of Care: Rehab/SNF: no Home Health: no DME: Owns a cane, fww. Dialysis: no Community Resources: None offered. Transportation: Pt drove himself to [facility] yesterday; car here; he plans to drive himself home. Anticipated Barriers to Discharge/Special Considerations: None. Assessment: Pt admitted from the ED after complaining of right abdominal pain. CT of abdomen showed, normal left lower quadrant transplant kidney but a 6 x 10 mm obstructing stone in the mid to distal ureter with marketed hydronephrosis of the left seminole kidney. Plan: Pt going to OR today for placement of left ureteral stent. [facility]. Pt does not need any home services at time of interview. A member of the Care Management team will continue to monitor progress, follow for continuity of care and assist with transition of care planning. Giovanna Haro RN Pager: [phone] * Consult Note - Tal Chen MD [...] ureter with marketed hydronephrosis of the left seminole kidney. Urology was consulted for obstructing ureteral stone of seminole left kidney in the setting of immunosuppression [...] EXTREMITY performed by Jennifer Amaro MD at [facility] OR ??? PRO REIMPLANT URETER, SINGLE URETER Left 05/20/2016 @URETERONEOCYSTOSTOMY ANASTOMOSIS OF SINGLE URETER TO BLADDER performed by Santosh Arredondo MD at [facility] OR ??? PRO REIMPLANT URETER, SINGLE URETER N/A 05/20/2016 @URETERONEOCYSTOSTOMY ANASTOMOSIS OF SINGLE URETER TO BLADDER performed by Jennifer Amaro MD at [facility] OR ??? PRO TOTAL KNEE ARTHROPLASTY Right 11/25/2017 TOTAL KNEE ARTHROPLASTY (WRVU 20.72) performed by Breezy Dale MD at [facility] OR ??? PRO TRANSPLANT, PREP CADAVER RENAL GRAFT N/A 09/16/2015 @PREPARATION CADAVERIC RENAL ALLOGRAFT performed by Franko Larkin MD at [facility] OR ??? PRO TRANSPLANTATION OF KIDNEY N/A 09/16/2015 @KIDNEY TRANSPLANT, WITHOUT RECIPIENT NEPHRECTOMY performed by Franko Larkin MD at [facility] OR No current facility-administered medications [...] 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 ?? Transplant kidney: Transplant kidney [...] an incidental finding of a hydronephrotic left seminole kidney with a 6 x 10 mid [...] However, the patient has an obstructed left seminole kidney and is on immunosuppression.Therefore, we would [...] feels that ureteral stent placement for left seminole kidney decompression isindicated at this time give [...] Chen MD, MPH Urology, PGY-2 Consult Pager #[phone] 06/17/2018 * Plan of Care - Ozzy [...] as Appropriate) 06/17/18402 Interdisciplinary Rounds/Family Conf Participants skilled nursing case manager;physician;pharmacy * Consult Note - Tla Chen MD - 06/16/2018 6:52 PM EST [...] ureter with marketed hydronephrosis of the left seminole kidney. Urology was consulted for obstructing ureteral stone of seminole left kidney in the setting of immunosuppression [...] EXTREMITY performed by Jennifer Amaro MD at [facility] OR ??? PRO REIMPLANT URETER, SINGLE URETER Left 05/20/2016 @URETERONEOCYSTOSTOMY ANASTOMOSIS OF SINGLE URETER TO BLADDER performed by Santosh Arredondo MD at [facility] OR ??? PRO REIMPLANT URETER, SINGLE URETER N/A 05/20/2016 @URETERONEOCYSTOSTOMY ANASTOMOSIS OF SINGLE URETER TO BLADDER performed by Jennifer Amaro MD at [facility] OR ??? PRO TOTAL KNEE ARTHROPLASTY Right 11/25/2017 TOTAL KNEE ARTHROPLASTY (WRVU 20.72) performed by Breezy Dale MD at [facility] OR ??? PRO TRANSPLANT, PREP CADAVER RENAL GRAFT N/A 09/16/2015 @PREPARATION CADAVERIC RENAL ALLOGRAFT performed by Franko Larkin MD at [facility] OR ??? PRO TRANSPLANTATION OF KIDNEY N/A 09/16/2015 @KIDNEY TRANSPLANT, WITHOUT RECIPIENT NEPHRECTOMY performed by Franko Larkin MD at [facility] OR No current facility-administered medications [...] 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 ?? Transplant kidney: Transplant kidney [...] an incidental finding of a hydronephrotic left seminole kidney with a 6 x 10 mid [...] However, the patient has an obstructed left seminole kidney and is on immunosuppression.Therefore, we would [...] Chen MD, MPH Urology, PGY-2 Consult Pager #[phone] 06/16/2018 Associated attestation - Fermin Whitney MD - 06/18/2018 7:33 AM EST I have seen the patient and reviewed the resident's above history and I agree with the details as written. The assessment and plan were formulated in discussion with me and I agree with them as documented. In discussion with Dr. Amaro, it sounds like his left seminole ureter was ligated during repair ofhis necrotic [...] Office Visit Cardiology at [address] [address] Jay Urban MD [facility] [place] [address] 04/15/2024 10:00 AM EDT Hospital Encounter [place] [address] Arrived documented as of this encounter Goals [...] 5:53 AM EST DIFFERENTIAL, AUTOMATED Routine 06/18/20 5:53 AM EST CBC (WITH DIFF) Routine [...] 06/17/2018 1:51 PM EST TYPE AND SCREEN (MC/CGP/MOSES) Routine 06/17/2018 1:51 PM EST TACROLIMUS LEVEL [...] AM EST) HCV Viral Load <12 IU/mL [facility] HCV Viral Load Result: <12 IU/mL (Target Not Detected) Indication for Study: Hepatitis C Infection Analysis: The [employer] RealTime HCV assay is an in vitro reverse mid level game designer polymerase chain reaction (RT-PCR)for the quantitation of hepatitis C viral (HCV) RNA in human serum or plasma (EDTA) from HCV-infected individuals. Sample: plasma (0.7 mL minimum volume) Method: [employer] RealTime HCV Assay Linear Range: 12 IU/mL - 100,000,000IU/mL Note: The [employer] RealTime HCV Assay has been approved by the U.S. Food and Drug Administration. [facility] Comment: [VERIFIED DATE]06.23.18 Verified By:Nella Evans (Electronic Signature) Blood specimen (specimen) 06/18/2018 11:07 AM EST 06/21/2018 11:26 AM EST Narrative Resulting Agency Comment Spec In Lab Jennifer JENNINGS [facility] [place] [address] * US Scrotum (06/18/2018 8:45 AM EST) [...] 09:31 am) PATIENT INFO: ID #: ? [id number] ?: ??[birth year] (67 yrs) Name: ? ETHEL AKINS ?Visit Date: 06/18/2018 08:42 am PERFORMED BY: Performed By: ? Osmar Dowd RDMS Attending: ?Kristen GERBER, Valencia Almonte Resident: ? Patricia Malik DO Referred By: ?JENNIFER AMARO Location: ? [place] SERVICE(S) PROVIDED: ??US - Scrotum and Contents with Limited Vascular ?25239, 12084 ??evaluation - [id number] INDICATIONS: ??RLQ and scrotal pain RIGHT TESTICLE: [...] 06/18/2018 09:31 am) PATIENT INFO: ID #: [id number] : [birth year] (67 yrs) Name: ETHLE AKINS Visit Date: 06/18/2018 08:42 am PERFORMED BY: Performed By: Osmar Dowd RDMS Attending: Valencia Carson MD Resident: Patricia Malik DO Referred By: JENNIFER AMARO Location: [place] SERVICE(S) PROVIDED: [facility] - Scrotum and Contents with Limited Vascular 02609, 86135 evaluation - [id number] INDICATIONS: RLQ and scrotal pain RIGHT TESTICLE: [...] Report 06/18/2018 09:31 am Jennifer Amaro MD IM US GEN ORD ERABLES * Differential, Automated (06/18/2018 5:53 AM EST) Neutrophil % 61.9 % [facility] Neutrophil Absolute 4.45 1.70 - 6.10 x10(3)/[facility] Lymph % 23.8 % [facility] Lymphocytes Abs 1.7 0.9 - 3.2 x10(3)/[facility] Monocyte % 8.4 % [facility] Monocyte Abs 0.6 0.3 - 0.9 x10(3)/[facility] Eos % 4.5 % [facility] Eosinophils Abs 0.3 0.0 - 0.4 x10(3)/[facility] Basophil % 1.0 % [facility] Baso Absolute 0.1 0.0 - 0.1 x10(3)/[facility] Immature Gran % 0.40 % [facility] Comment: Immature granulocytes(IG's)percentage and absolute count will include metamyelocytes, myelocytes, and promyelocytes. Blood smears from CBCs yielding IG's will be scanned manually for concordance. If this scan disagrees with the automated IG or if promyelocytes are noted, a manual differential will be performed. Immature Gran Absolute 0.03 0.00 - 0.04 x10(3)/[facility] Blood specimen (specimen) 06/18/2018 5:53 AM EST 06/18/2018 6:13 AM EST Narrative Resulting Agency Comment Spec In Lab Jennifer Palmer MD HEMATOLOGY OR DERABLES [facility] [place] [address] * Hemogram (06/18/2018 5:53 AM EST) White Blood Cell 7.2 4.0 - 9.5 x10(3)/[facility] Red Blood Cell 5.13 4.58 - 5.54 x10(6)/[facility] Hemoglobin 15.6 13.7 - 16.5 gm/dL [facility] Hematocrit 45.5 40.5 - 48.5 % [facility] Mean Cell Volume 88.7 82.9 - 93.1 [facility] Mean Cell Hemoglobin 30.4 27.5 - 32.[address] [facility] Mean Cell Hemoglobin Concentration 34.3 32.0 - 35.7 gm/dL [facility] Platelet 259 145 - 357 x10(3)/[facility] RDW Standard Deviation 42.3 36.0 - 45.0 [facility] RDW coefficient of variation 13.0 11.4 - 13.8 % [facility] Mean Platelet Volume 9.8 7.6 - 12.9 [facility] NRBC% auto 0.0 % [facility] NRBC Absolute 0.000 0.000 - 0.000 x10(3)/[facility] Blood specimen (specimen) 06/18/2018 5:53 AM EST 06/18/2018 6:13 AM EST Narrative Resulting Agency Comment Spec In Lab Jennifer Palmer MD HEMATOLOGY OR DERABLES Performing Organization Address [facility] Co de Phone Number [facility] [place] [address] * Phosphorus (06/18/2018 5:53 AM EST) Phosphorus 3.3 2.5 - 4.5 mg/dL [facility] Blood specimen (specimen) 06/18/2018 5:53 AM EST 06/18/2018 6:13 AM EST Narrative Resulting Agency Comment Spec In Lab Jennifer Amaro MD CHEMISTRY ROCHELLE JENNINGS Performing Organization Address [facility] Phone Number [facility] [place] [address] * Magnesium (06/18/2018 5:53 AM EST) Magnesium 0.72 0.69 - 1.07 mmol/L [facility] Blood specimen (specimen) 06/18/2018 5:53 AM EST 06/18/2018 6:13 AM EST Narrative Resulting Agency Comment Spec In Lab Jennifer Amaro MD CHEMISTRY ORDTiny JENNINGS Performing Organization Address [facility] de Phone Number [facility] [place] [address] * (ABNORMAL) Comprehensive metabolic panel (non-fasting) (06/18/2018 5:53 AM EST) Glucose 113 65 - 199 mg/dL [facility] Comment:Diabetes: >=200 mg/d L plus symptoms Blood Urea Nitrogen 18 10 - 20 mg/dL [facility] Creatinine 1.34 0.80 - 1.50 mg/dL [facility] Sodium 139 135 - 145 mmol/L [facility] Potassium 3.6 3.5 - 5.0 mmol/L [facility] Comment: Please note: ??Patients with WBC >100,000 may have falsely elevated Potassium levels. ??For accurate Potassium quantification in these patients send serum separator tube (gold top) for subsequent determinations. ??Contact the Clinical Chemistry Laboratory if there are any questions. Chloride 102 98 - 107 mmol/L [facility] Carbon Dioxide 25 22 - 31 mmol/L [facility] Anion Gap 12 5 - 15 mmol/L [facility] Calcium 8.8 8.5 - 10.5 mg/dL [facility] Protein, Total 6.4 6.1 - 8.0 gm/dL [facility] Albumin 3.5 3.2 - 5.2 gm/dL [facility] Aspartate Aminotransferase 14 0 - 39 unit/L [facility] Alanine Aminotransferase 14 0 - 55 unit/L [facility] Alkaline Phosphatase 61 40 - 120 unit/L [facility] Bilirubin, Total 2.7(H) 0.2 - 1.3 mg/dL [facility] Est Glomerular Filtration Rate 54(L) >=60 mL/min/1. 73 m?? [facility] Comment: The eGFR was calculated using the CKD-EPI equation. As with all creatinine based estimates of kidney function, eGFR values calculated with the CKD-EPI equation are not accurate in patients with acute kidney failure, extremes of body mass or the acutely ill. [email or web address] eGFR 62 >=60 mL/min/1. 73 m?? [facility] Comment: The eGFR was calculated using the CKD-EPI equation. As with all creatinine based estimates of kidney function, eGFR values calculated with the CKD-EPI equation are not accurate in patients with acute kidney failure, extremes of body mass or the acutely ill. [email or web address] Blood specimen (specimen) 06/18/2018 5:53 AM EST 06/18/2018 6:13 AM EST Narrative Resulting Agency Comment Spec In Lab Jennifer Amaro MD CHEMISTRY ORDE RABLES Performing Organization Address City/[facility]/ZIP Co de Phone Number [facility] [place] [address] * XR Fluoro No Rad <1Hr - OR Use (06/17/2018 4:05 PM EST) Narrative RAD - 06/17/2018 4:05 PM EST This order does not need a radiologist interpretation. ?? Jennifer Amaro MD IMG FLUORO ORD ERABLES Performing Organization Address City/[facility]/ZIP Co de Phone Number RAD [place], [place] * ABORH Recheck Status (06/17/2018 1:51 PM EST) ABORH Type Recheck Completed [facility] Blood specimen (specimen) 06/17/2018 1:51 PM EST 06/17/2018 3:10 PM EST Narrative Resulting Agency Comment Spec In Lab Jennifer Amaro MD BLOOD BANK LAB ORDERABLES Performing Organization Address [facility]/ZIP Co de Phone Number [facility] [place] [place] [address] * Antibody screen (06/17/2018 1:51 PM EST) Ab Screen Interp Negative [facility] Expires at [id number] on: 06/20/2018 [facility] Blood specimen (specimen) 06/17/2018 1:51 PM EST 06/17/2018 3:10 PM EST Narrative Resulting Agency Comment Spec In Lab Jennifer Amaro MD BLOOD BANK LAB ORDERABLES Performing Organization Address City/[facility]/ZIP Co de Phone Number [facility] [place] [place] [address] * ABO/Rh Typing (06/17/2018 1:51 PM EST) ABORH Type AB Pos [facility] Blood specimen (specimen) 06/17/2018 1:51 PM EST 06/17/2018 3:10 PM EST Narrative Resulting Agency Comment Spec In Lab Jennifer Amaro MD BLOOD BANK LAB ORDERABLES Performing Organization Address [facility] de Phone Number [facility] [place] [address] * Tacrolimus level (06/17/2018 8:50 AM EST) Tacrolimus 5.2 ng/mL [facility] Comment: Trough therapeutic: ??5-15 ng/mL Performed by ultra-performance liquid chromatography tandem mass spectrometry (UPLCMS/MS). This test was developed and its performance characteristics determined by [facility]. It has not been cleared [...] Lucero MD CHEMISTRY ORDERABLES Performing Organization Address [facility] de Phone Number [facility] [place] [address] * Lipase (06/17/2018 6:19 AM EST) Lipase 25 0 - 60 unit/L [facility] Blood specimen (specimen) 06/17/2018 6:19 AM EST 06/17/2018 6:40 AM EST Narrative Resulting Agency Comment Spec In Lab Jennifer Amaro MD CHEMISTRY ORDE RABLES Performing Organization Address [facility] Co de Phone Number [facility] [place] [address] * Amylase (06/17/2018 6:19 AM EST) Amylase 29 28 - 100 unit/L [facility] Blood specimen (specimen) 06/17/2018 6:19 AM EST 06/17/2018 6:39 AM EST Narrative Resulting Agency Comment Spec In Lab Jennifer Amaro MD CHEMISTRY ROCHELLE JENNINGS Performing Organization Address [facility] de Phone Number [facility] [place] [address] * Phosphorus (06/17/2018 6:19 AM EST) Phosphorus 2.8 2.5 - 4.5 mg/dL [facility] Blood specimen (specimen) 06/17/2018 6:19 AM EST 06/17/2018 6:39 AM EST Narrative Resulting Agency Comment Spec In Lab Jennifer Amaro MD CHEMISTRY ROCHELLE JENNINGS Performing Organization Address [facility] Phone Number [facility] [place] [address] * Magnesium (06/17/2018 6:19 AM EST) Magnesium 0.70 0.69 - 1.07 mmol/L [facility] Blood specimen (specimen) 06/17/2018 6:19 AM EST 06/17/2018 6:39 AM EST Narrative Resulting Agency Comment Spec In Lab Jennifer Amaro MD CHEMISTRY ROCHELLE JENNINGS Performing Organization Address [facility] de Phone Number [facility] [place] [address] * (ABNORMAL) Comprehensive metabolic panel (non-fasting) (06/17/2018 6:19 AM EST) Glucose 108 65 - 199 mg/dL [facility] Comment:Diabetes: >=200 mg/d L plus symptoms Blood Urea Nitrogen 14 10 - 20 mg/dL [facility] Creatinine 1.20 0.80 - 1.50 mg/dL [facility] Sodium 139 135 - 145 mmol/L [facility] Potassium 3.5 3.5 - 5.0 mmol/L [facility] Comment: Please note: ??Patients with WBC >100,000 may have falsely elevated Potassium levels. ??For accurate Potassium quantification in these patients send serum separator tube (gold top) for subsequent determinations. ??Contact the Clinical Chemistry Laboratory if there are any questions. Chloride 102 98 - 107 mmol/L [facility] Carbon Dioxide 25 22 - 31 mmol/L [facility] Anion Gap 12 5 - 15 mmol/L [facility] Calcium 8.8 8.5 - 10.5 mg/dL [facility] Protein, Total 6.5 6.1 - 8.0 gm/dL [facility] Albumin 3.4 3.2 - 5.2 gm/dL [facility] Aspartate Aminotransferase 16 0 - 39 unit/L [facility] Alanine Aminotransferase 17 0 - 55 unit/L [facility] Alkaline Phosphatase 64 40 - 120 unit/L [facility] Bilirubin, Total 2.8(H) 0.2 - 1.3 mg/dL [facility] Est Glomerular Filtration Rate 61 >=60 mL/min/1. 73 m?? [facility] Comment: The eGFR was calculated using the CKD-EPI equation. As with all creatinine based estimates of kidney function, eGFR values calculated with the CKD-EPI equation are not accurate in patients with acute kidney failure, extremes of body mass or the acutely ill. [email or web address] eGFR 71 >=60 mL/min/1. 73 m?? [facility] Comment: The eGFR was calculated using the CKD-EPI equation. As with all creatinine based estimates of kidney function, eGFR values calculated with the CKD-EPI equation are not accurate in patients with acute kidney failure, extremes of body mass or the acutely ill. [email or web address] Blood specimen (specimen) 06/17/2018 6:19 AM EST 06/17/2018 6:39 AM EST Narrative Resulting Agency Comment Spec In Lab Jennifer Amaro MD CHEMISTRY ORDE DICK [facility] [place] [address] * Hemogram (06/17/2018 6:19 AM EST) White Blood Cell 7.6 4.0 - 9.5 x10(3)/[facility] Red Blood Cell 5.13 4.58 - 5.54 x10(6)/[facility] Hemoglobin 15.9 13.7 - 16.5 gm/dL [facility] Hematocrit 45.6 40.5 - 48.5 % [facility] Mean Cell Volume 88.9 82.9 - 93.[address] [facility] Mean Cell Hemoglobin 31.0 27.5 - 32.[address] [facility] Mean Cell Hemoglobin Concentration 34.9 32.0 - 35.7 gm/dL [facility] Platelet 274 145 - 357 x10(3)/[facility] RDW Standard Deviation 42.4 36.0 - 45.0 [facility] RDW coefficient of variation 13.0 11.4 - 13.8 % [facility] Mean Platelet Volume 9.8 7.6 - 12.9 [facility] NRBC% auto 0.0 % [facility] NRBC Absolute 0.000 0.000 - 0.000 x10(3)/[facility] Blood specimen (specimen) 06/17/2018 6:19 AM EST 06/17/2018 6:40 AM EST Narrative Resulting Agency Comment Spec In Lab Jennifer Amaro MD HEMATOLOGY ORD ERABLES [facility] [place] [address] * Lipase (06/16/2018 9:54 PM EST) Lipase 44 0 - 60 unit/L [facility] Blood specimen (specimen) 06/16/2018 9:54 PM EST 06/16/2018 10:03 PM EST Narrative Resulting Agency Comment Spec In Lab Ari Lucero MD CHEMISTRY ORDERABLES Performing Organization Address City/[facility]/ZIP Co de Phone Number [facility] [place] [address] * Phosphorus (06/16/2018 9:54 PM EST) Phosphorus 2.9 2.5 - 4.5 mg/dL [facility] Blood specimen (specimen) 06/16/2018 9:54 PM EST 06/16/2018 10:03 PM EST Narrative Resulting Agency Comment Spec In Lab Ari Lucero MD CHEMISTRY ORDERABLES Performing Organization Address [facility] Co de Phone Number [facility] [place] [address] * (ABNORMAL) Magnesium (06/16/2018 9:54 PM EST) Magnesium 0.61(L) 0.69 - 1.07 mmol/L [facility] Blood specimen (specimen) 06/16/2018 9:54 PM EST 06/16/2018 10:03 PM EST Narrative Resulting Agency Comment Spec In Lab Ari Lucero MD CHEMISTRY ORDERABLES Performing Organization Address [facility] Co de Phone Number [facility] [place] [address] * Amylase (06/16/2018 9:54 PM EST) Amylase 34 28 - 100 unit/L [facility] Blood specimen (specimen) 06/16/2018 9:54 PM EST 06/16/2018 10:03 PM EST Narrative Resulting Agency Comment Spec In Lab Ari Lucero MD CHEMISTRY ORDERABLES [facility] [place] [address] * Hemogram (06/16/2018 9:54 PM EST) White Blood Cell 9.2 4.0 - 9.5 x10(3)/[facility] Red Blood Cell 5.25 4.58 - 5.54 x10(6)/[facility] Hemoglobin 15.7 13.7 - 16.5 gm/dL [facility] Hematocrit 44.8 40.5 - 48.5 % [facility] Mean Cell Volume 85.3 82.9 - 93.[address] [facility] Mean Cell Hemoglobin 29.9 27.5 - 32.[address] [facility] Mean Cell Hemoglobin Concentration 35.0 32.0 - 35.7 gm/dL [facility] Platelet 270 145 - 357 x10(3)/[facility] RDW Standard Deviation 39.4 36.0 - 45.0 [facility] RDW coefficient of variation 12.9 11.4 - 13.8 % [facility] Mean Platelet Volume 9.5 7.6 - 12.9 [facility] NRBC% auto 0.0 % [facility] NRBC Absolute 0.000 0.000 - 0.000 x10(3)/[facility] Blood specimen (specimen) 06/16/2018 9:54 PM EST 06/16/2018 10:03 PM EST Narrative Resulting Agency Comment Spec In Lab Ari Lucero MD HEMATOLOGY ORDERABLE S [facility] [place] [address] * (ABNORMAL) Comprehensive metabolic panel (non-fasting) (06/16/2018 9:54 PM EST) Glucose 99 65 - 199 mg/dL [facility] Comment:Diabetes: >=200 mg/d L plus symptoms Blood Urea Nitrogen 14 10 - 20 mg/dL [facility] Creatinine 1.12 0.80 - 1.50 mg/dL [facility] Sodium 139 135 - 145 mmol/L [facility] Potassium 3.4(L) 3.5 - 5.0 mmol/L [facility] [...] mmol/L [facility] Anion Gap 14 5 - 15 mmol/L [facility] Calcium 8.9 8.5 - 10.5 mg/dL [facility] Protein, Total 6.8 6.1 - 8.0 gm/dL [facility] Albumin 3.6 3.2 - 5.2 gm/dL [facility] Aspartate Aminotransferase 17 0 - 39 unit/L [facility] Alanine Aminotransferase 16 0 - 55 unit/L [facility] Alkaline Phosphatase 65 40 - 120 unit/L [facility] Bilirubin, Total 2.3(H) 0.2 - 1.3 mg/dL [facility] Est Glomerular Filtration Rate 67 >=60 mL/min/1. 73 m?? [facility] Comment: The eGFR was calculated using the CKD-EPI equation. As with all creatinine based estimates of kidney function, eGFR values calculated with the CKD-EPI equation are not accurate in patients with acute kidney failure, extremes of body mass or the acutely ill. [email or web address] eGFR 77 >=60 mL/min/1. 73 m?? [facility] Comment: The eGFR was calculated using the CKD-EPI equation. As with all creatinine based estimates of kidney function, eGFR values calculated with the CKD-EPI equation are not accurate in patients with acute kidney failure, extremes of body mass or the acutely ill. [email or web address] Blood specimen (specimen) 06/16/2018 9:54 PM EST 06/16/2018 10:03 PM EST Narrative Resulting Agency Comment Spec In Lab Ari Lucero MD CHEMISTRY ORDERABLES Performing Organization Address City/[facility] Co de Phone Number [facility] [place] [address] * Blood culture (06/16/2018 6:51 PM EST) Blood Culture No growth at [address] [facility] Blood specimen (specimen) 06/16/2018 6:51 PM EST 06/16/2018 7:55 PM EST Comment:RH Narrative Resulting Agency Comment Spec In Lab Ari Lucreo MD MICROBIOLOGY - BLOOD ORDERABLES Performing Organization Address [facility] Co de Phone Number [facility] [place] [address] * Blood culture (06/16/2018 6:35 PM EST) Blood Culture No growth at [address] [facility] Blood specimen (specimen) 06/16/2018 6:35 PM EST 06/16/2018 7:50 PM EST Comment:RAC Narrative Resulting Agency Comment Spec In Lab Ari Lucero MD MICROBIOLOGY - BLOOD ORDERABLES Performing Organization Address City/[facility] Co de Phone Number [facility] [place] [address] * Urinalysis Microscopic Exam (06/16/2018 6:33 PM EST) RBC, Urine 2 0 - 3 /HPF [facility] WBC, Urine <1 0 - 3 /HPF [facility] Urine specimen obtained by clean catch procedure (specimen) 06/16/2018 6:33 PM EST 06/16/2018 7:10 PM EST Narrative Resulting Agency Comment Spec In Lab Giovanna Arriola MD URINE ORDERABLES Performing Organization Address [facility] de Phone Number [facility] [place] [address] * Urine Hold (06/16/2018 6:33 PM EST) Hold, Urine Sample in lab. [facility] Urine specimen (specimen) Urine / Unknown 06/16/2018 6:33 PM EST 06/16/2018 7:11 PM EST Giovanna Arriola MD URINE ORDERABLES Performing Organization Address [facility] Phone Number [facility] [place] [address] * (ABNORMAL) Urine culture Clean Catch Urine (06/16/2018 6:33 PM EST) Urine Culture 1,000-9,000 cfu/ml Gram Positive organisms , probable contaminant(A ) [facility] Urine specimen obtained by clean catch procedure (specimen) 06/16/2018 6:33 PM EST 06/16/2018 7:48 PM EST Narrative Resulting Agency Comment Spec In Lab Ari Lucero MD MICROBIOLOGY - GENER AL ORDERABLES Performing Organization Address [facility] Phone Number [facility] [place] [address] * (ABNORMAL) Urinalysis with reflex Culture (06/16/2018 [...] [facility] pH, Urn (dipstick) 7.0 5.0 - 8.0 [facility] Blood, Urine Dipstick Negative Negative mg/dL [facility] Ketone, Urine Dipstick Negative Negative mg/dL [facility] Nitrite, Urine Dipstick Negative Negative [facility] Leukocytes, Urine Dipstick Negative Negative [facility] Appearance, Urine Dipstick Clear Clear [facility] Specific [place] Urine Automated 1.010 1.002 - 1.030 [facility] Color, Urine Dipstick Straw Yellow [facility] Reflex to Culture No [facility] Urine specimen obtained by clean catch procedure (specimen) 06/16/2018 6:33 PM EST 06/16/2018 7:10 PM EST Narrative Resulting Agency Comment Spec In Lab Ari Lucero MD URINE ORDERABLES Performing Organization Address City/State/[facility] Co de Phone Number [facility] [place] [address] * CT Abdomen & Pelvis wo Contrast [...] 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 Transplant kidney: Transplant kidney noted [...] previously there is severe atrophy of the seminole LEFTkidney.. Transplant kidney: Transplant kidney noted in [...] 04:48 pm) PATIENT INFO: ID #: ? [id number] ?: ??[birth year] (67 yrs) Name: ? ETHEL AKINS ?Visit Date: 06/16/2018 04:37 pm PERFORMED BY: Performed By: ? Nicole Thompson RDMS Attending: ?Esa GERBER, Joseph Verduzco Resident: ? Patricia Malik DO Referred By: ?NICK MENDES Location: ? [place] SERVICE(S) PROVIDED: ??UABDLIM - Abdominal Limited Survey Single ? 58320 ??Organ or Quadrant - [id number] INDICATIONS: ??RUQ pain COMPARISON: Prior CT: 06/12/18. [...] 06/16/2018 04:48 pm) PATIENT INFO: ID #: [id number] : [birth year] (67 yrs) Name: ETHEL AKINS Visit Date: 06/16/2018 04:37 pm PERFORMED BY: Performed By: Nicole Thompson RDMS Attending: Joseph See MD Resident: Patricia Malik DO Referred By: NICK MENDES Location: [place] SERVICE(S) PROVIDED: UABDLIM - Abdominal Limited Survey Single 95437 Organ or Quadrant - [id number] INDICATIONS: RUQ pain COMPARISON: Prior CT: 06/12/18. [...] PM EST) Gold Hold Sample in lab. [facility] Blood specimen (specimen) Venous Draw / Unknown 06/16/2018 4:05 PM EST 06/16/2018 4:20 PM EST Giovanna Arriola MD CHEMISTRY ORDERAB LES Performing Organization Address City/[facility]/ZIP Co de Phone Number [facility] [place] [address] * Blue Tube HOLD (06/16/2018 4:05 PM EST) Blue Hold Sample in lab. [facility] Blood specimen (specimen) Venous Draw / Unknown 06/16/2018 4:05 PM EST 06/16/2018 4:20 PM EST Giovanna Arriola MD HEMATOLOGY ORDERA BLES Performing Organization Address [facility]/ZIP Co de Phone Number [facility] [place] [address] * Differential, Automated (06/16/2018 4:05 PM EST) Neutrophil % 63.5 % [facility] Neutrophil Absolute 4.68 1.70 - 6.10 x10(3)/[facility] Lymph % 24.5 % [facility] Lymphocytes Abs 1.8 0.9 - 3.2 x10(3)/[facility] Monocyte % 7.3 % [facility] Monocyte Abs 0.5 0.3 - 0.9 x10(3)/[facility] Eos % 3.3 % [facility] Eosinophils Abs 0.2 0.0 - 0.4 x10(3)/[facility] Basophil % 1.0 % [facility] Baso Absolute 0.1 0.0 - 0.1 x10(3)/[facility] Immature Gran % 0.40 % [facility] Comment: Immature granulocytes(IG's)percentage and absolute count will include metamyelocytes, myelocytes, and promyelocytes. Blood smears from CBCs yielding IG's will be scanned manually for concordance. If this scan disagrees with the automated IG or if promyelocytes are noted, a manual differential will be performed. Immature Gran Absolute 0.03 0.00 - 0.04 x10(3)/[facility] Blood specimen (specimen) 06/16/2018 4:05 PM EST 06/16/2018 4:20 PM EST Narrative Resulting Agency Comment Spec In Lab Giovanna Arriola MD HEMATOLOGY ORDERA BLES [facility] [place] [address] * Hemogram (06/16/2018 4:05 PM EST) White Blood Cell 7.4 4.0 - 9.5 x10(3)/[facility] Red Blood Cell 5.45 4.58 - 5.54 x10(6)/[facility] Hemoglobin 16.5 13.7 - 16.5 gm/dL [facility] Hematocrit 47.0 40.5 - 48.5 % [facility] Mean Cell Volume 86.2 82.9 - 93.[address] [facility] Mean Cell Hemoglobin 30.3 27.5 - 32.[address] [facility] Mean Cell Hemoglobin Concentration 35.1 32.0 - 35.7 gm/dL [facility] Platelet 278 145 - 357 x10(3)/[facility] RDW Standard Deviation 40.4 36.0 - 45.[address] [facility] RDW coefficient of variation 13.1 11.4 - 13.8 % [facility] Mean Platelet Volume 9.7 7.6 - 12.[address] [facility] NRBC% auto 0.0 % [facility] NRBC Absolute 0.000 0.000 - 0.000 x10(3)/[facility] Blood specimen (specimen) 06/16/2018 4:05 PM EST 06/16/2018 4:20 PM EST Narrative Resulting Agency Comment Spec In Lab Giovanna Arriola MD HEMATOLOGY ORDERA BLES Performing Organization Address City/[facility]/ZIP Co de Phone Number [facility] [place] [address] * Lipase (06/16/2018 4:05 PM EST) Pathologist [facility] Lipase 36 0 - 60 unit/L [facility] Blood specimen (specimen) 06/16/2018 4:05 PM EST 06/16/2018 4:20 PM EST Narrative Resulting Agency Comment Spec In Lab Nick Mendes MD CHEMISTRY ORDERAB LES Performing Organization Address [facility]/ZIP Co de Phone Number [facility] [place] [address] * (ABNORMAL) Comprehensive metabolic panel (non-fasting) (06/16/2018 4:05 PM EST) Pathologist [facility] Glucose 93 65 - 199 mg/dL [facility] Comment:Diabetes: >=200 mg/d L plus symptoms Blood Urea Nitrogen 17 10 - 20 mg/dL [facility] Creatinine 1.24 0.80 - 1.50 mg/dL [facility] Sodium 139 135 - 145 mmol/L [facility] Potassium Not Perf 3.5 - 5.0 [facility] Comment: called 06/16/18 17:05 to Carmen Ferrell Please note: ??Patients with WBC >100,000 may have falsely elevated Potassium levels. ??For accurate Potassium quantification in these patients send serum separator tube (gold top) for subsequent determinations. ??Contact the Clinical Chemistry Laboratory if there are any questions. Chloride 99 98 - 107 mmol/L [facility] Carbon Dioxide 28 22 - 31 mmol/L [facility] Anion Gap 12 5 - 15 mmol/L [facility] Calcium 9.3 8.5 - 10.5 mg/dL [facility] Protein, Total 7.6 6.1 - 8.0 gm/dL [facility] Albumin 4.0 3.2 - 5.2 gm/dL [facility] Aspartate Aminotransferase Not Perf 0 - 39 [facility] Comment:called 06/16/18 17:0 5 to Carmen Ferrell Alanine Aminotransferase Not Perf 0 - 55 [facility] Comment:called 06/16/18 17:0 5 to Carmen Ferrell Alkaline Phosphatase 64 40 - 120 unit/L [facility] Bilirubin, Total 2.0(H) 0.2 - 1.3 mg/dL [facility] Est Glomerular Filtration Rate 59(L) >=60 mL/min/1. 73 m?? [facility] Comment: The eGFR was calculated using the CKD-EPI equation. As with all creatinine based estimates of kidney function, eGFR values calculated with the CKD-EPI equation are not accurate in patients with acute kidney failure, extremes of body mass or the acutely ill. [email or web address] eGFR 68 >=60 mL/min/1. 73 m?? [facility] Comment: The eGFR was calculated using the CKD-EPI equation. As with all creatinine based estimates of kidney function, eGFR values calculated with the CKD-EPI equation are not accurate in patients with acute kidney failure, extremes of body mass or the acutely ill. [email or web address] Blood specimen (specimen) 06/16/2018 4:05 PM EST 06/16/2018 4:20 PM EST Narrative Resulting Agency Comment Spec In Lab Nick Mendes MD CHEMISTRY ORDERAB LES [facility] [place] [place] [address] documented in this encounter Visit Diagnoses Diagnosis [...] area)1644 (SEP Unhold - Provider: Admin Adt) 0968 (Given - Provider: Selena Nicolas RN) ciprofloxacin (CIPRO) tablet 500 mg 500 mg, Oral, 2 TIMES DAILY, First dose on Thu06/17/18 at 1030, Until Discontinued, Routine, Indication for (Active or Suspected): Urinary Tract/Pyelonephritis 1155 (Given - Provider: Tomasa Crawford RN)1517 ([facility] Hold - Provider: Admin Adt - Reason: Transfer to a Procedural area)1644 ([facility] Unhold - Provider: Admin Adt)1810 (Given - Provider: Tomasa Crawford RN) 0742 (Given - Provider: Sandra Ortiz RN) levothyroxine (SYNTHROID) tablet 100 mcg 100 mcg, Oral, EVERY MORNING, First dose on Thu06/17/18 at 0700, Until Discontinued, Routine 0625 (Given - Provider: Ozzy Mccormick RN)151 ([facility] Hold - Provider: Admin Adt - Reason: Transfer to a Procedural area)1644 ([facility] Unhold - Provider: Admin Adt) 0742 (Given - Provider: Sandra Ortiz RN) magnesium oxide (MAG-OX) tablet 400 mg 400 mg, Oral, 2 TIMES DAILY, First dose on Thu06/16/18 at 2100, Until Discontinued, Routine 220 (Given - Provider: Ozzy Mccormick RN) 0844 (Given - Provider: Tomasa Crawford RN)151 ([facility] Hold - Provider: Admin Adt - Reason: Transfer to a Procedural area)1644 ([facility] Unhold - Provider: Admin Adt)2030 (Given - Provider: Sandra Ortiz RN) 0927 (Given - Provider: Selena Nicolas RN) mycophenolate (CELLCEPT) capsule 250 mg 250 mg, Oral, 2 TIMES DAILY, First dose on Thu06/16/18 at 2115, Until Discontinued, DO NOT CRUSH OR OPEN Administer to patient on empty stomach (1 hour before or two hours after a meal)., Routine 220 (Given - Provider: Ozzy Mccormick RN) 0625 (Given - Provider: Ozzy Mccormick RN)1517 ([facility] Hold - Provider: Admin Adt - Reason: Transfer to a Procedural area)1644 ([facility] Unhold - Provider: Admin Adt)1810 [...] 0844 (Given - Provider: Tomasa Crawford RN)1517 ([facility] Hold - Provider: Admin Adt - Reason: Transfer to a Procedural area)164 ([facility] Unhold - Provider: Admin Adt)2030 (Given - Provider: Sandra Ortiz RN) 09 (Given - Provider: Selena Nicolas RN) sodium chloride 0.9% 2,000 mL IV [...] Contreras RN) 0845 (Given - Provider: Tomasa Crawford, JADEN) tacrolimus (PROGRAF) capsule 1 mg 1 mg, Oral, DAILY, First dose on Thu06/18/18 at 2100, Until Discontinued, Routine tacrolimus (PROGRAF) capsule 2 mg (CANCELED) 2 mg, Oral, 2 TIMES DAILY, First dose on Thu06/17/18 at 1030, Until Discontinued, Routine 1155 (Given - Provider: Tomasa Crawford, JADEN)1517 ([facility] Hold - Provider: Admin Adt - Reason: Transfer to a Procedural area)164 ([facility] Unhold - Provider: Admin Adt)2029 (Given - [...] (Given - Provider: Ozzy Mccormick RN) 1517 ([facility] Hold - Provider: Admin Adt - Reason: Transfer to a Procedural area)1644 ([facility] Unhold - Provider: Admin Adt)2029 (Given - Provider: Sandra Ortiz RN) PRN [...] RN)1223 (Given - Provider: Tomasa Crawford RN)1517 ([facility] Hold - Provider: Admin Adt - Reason: Transfer to a Procedural area)1600 ([facility] Unhold - Provider: Karly Parra, RN)2030 (Given - Provider: Sandra Ortiz, RN) 0040 (Given - Provider: Sandra Ortiz, RN)0503 (Given - Provider: Maris Tavarez V, RN) documented in this encounter Care Teams Cut And Print Machine Operator Relationship Specialty Start Date End Date Urbano Denis DO [address] [place] [address] PCP - General 09/03/12 03/17/22 Ruchi Valles RN Nurse Clinic Transplant Surgery 07/30/15 documented as of this encounter
--- OUTSIDE RECORDS SUMMARY | 2024-04-04 14:03 | XMS_ITS | Encounter Summary ---
Author Organization [facility] [place] [address] Care Team Providers Care Electrical Checkout Mechanic Name Role Phone AdeelUrbano boland Primary Care Provider Reason for Visit * Reason Comments Medication Refill Encounter Details Date Type Department Care Team (Late st Contact Info) Description 12/21/2017 Refill [place] [phone] Tal Eagle MD [facility] [place] [address] Social History Tobacco Use Types Packs/Day Years [...] PM EDT Office Visit Cardiology at [address] [phone] Jay Urban MD [facility] [place] [address] 04/15/2024 10:00 AM EDT Hospital Encounter Non-Invasive [place]iology [place] [address] Arrived documented as of this encounter Goals Goal Patient Goal Type Associated Problems Recent Progress Patient-Stated? Author DH Home Medication Compliance and Understanding Patient Facing Action Plan On track( 017 10:41 AM EDT) Selena Scott, [facility] Note: Patient Goal: Clear hepatitis C Timeframe to meet goal: within 12 weeks of therapy documented as of this encounter Visit Diagnoses Not on filedocumented in this encounter Care Teams Electrical Checkout Mechanic Relationship Specialty Start Date End Date Urbano Denis DO [address] [place] [address] [address] [place] [address] PCP - General 09/03/12 03/17/22 Ruchi Valles RN Nurse Clinic Transplant Surgery 07/30/15 documented as of this encounter
--- OUTSIDE RECORDS SUMMARY | 2024-04-04 14:03 | XMS_ITS | Encounter Summary ---
Author Organization [facility] Address [facility] [place] [address] Care Team Providers Care Biological Technical Officer Name Role Phone AdeelUrbano boland Primary Care Provider + [phone] Reason for Visit * Reason Comments Post Op R TKA Encounter Details Date Type Department Care Team (Late st Contact Info) Description 01/04/2018 1:30 PM EDT Office [place] [address] Franko Hartley PA [facility] [place] [address] S/P R TKA 11/25/17 Dr. Dale (Primary [...] subsidence, loosening, or periprosthetic complication. Questionnaire Responses: [facility] Surgical Postop Visit 01/04/2018 PROMIS-10 General Health [...] None Satisfaction with Treatment Somewhat satisfied Orthopeadics [facility] Response 01/04/2018 KOOS JR Scores 39.63 Spine [facility] Response 01/04/2018 KOOS JR Scores 39.63 ASSESSMENT/PLAN: [...] and they will get them completed at [facility]. They also request a repeat pain script. [...] PM EDT Office Visit Cardiology at [address] [phone] Jay Urban MD [facility] [place] [address] 04/15/2024 10:00 AM EDT Hospital Encounter Non-Invasive [place] [address] Arrived documented as of this encounter Goals Goal Patient Goal Type Associated Problems Recent Progress Patient-Stated? Author [employer] Medication Compliance and Understanding Patient Facing Action Plan On track( 017 10:41 AM EDT) Selena Scott, [facility] Note: Patient Goal: Clear hepatitis C Timeframe to meet goal: within 12 weeks of therapy documented as of this encounter Visit Diagnoses Diagnosis S/P R TKA 11/25/17 Dr. Dale- Primary Knee joint replacement by other means documented in this encounter Care Teams Biological Technical Officer Relationship Specialty Start Date End Date Urbano Denis DO [address] [place] [address] PCP - General 09/03/12 03/17/22 Ruchi Valles RN Nurse Clinic Transplant Surgery 07/30/15 documented as of this encounter
--- OUTSIDE RECORDS SUMMARY | 2024-04-04 14:03 | XMS_ITS | Encounter Summary ---
Author Organization [facility] Address [facility] [address] Care Team Providers Care Electrician Helper Name Role Phone Urbano Denis DO Primary Care Provider Encounter Details Date Type Department Care Team (Latest Contact Info) Description 06/12/2018 2:52 PM EST - 06/12/2018 11:59 PM EST Hospital Encounter Radiology Library at [facility] [place] [address] Tal Eagle MD [facility] [place] [address] Discharge Disposition: Home Social History Tobacco Use [...] PM EDT Office Visit Cardiology at [address] [phone] Jay Urban MD [facility] [place] [address] 04/15/2024 10:00 AM EDT Hospital Encounter Non-[place]vasive [place] [address] Arrived documented as of this encounter Goals [...] & Pelvis (06/12/2018 2:52 PM EST) Narrative RAD - 06/12/2018 2:52 PM EST This exam is for storage only and is auto-finalizing. Tal Eagle MD IMG FILM LIBRARY ORDERABLES Performing Organization Address City/State/[facility] Co de Phone Number [place], [place] documented in this encounter Visit Diagnoses Not on filedocumented in this encounter Care Teams Electrician Helper Relationship Specialty Start Date End Date Urbano Denis DO [facility] [address] [place] [address] PCP - General 09/03/12 03/17/22 Ruchi Valles RN Nurse Clinic Transplant Surgery 07/30/15 documented as of this encounter
--- OUTSIDE RECORDS SUMMARY | 2024-04-04 14:03 | XMS_ITS | Encounter Summary ---
[place] [address] Care Team Providers Care Rehabilitation Therapy Technician Name Role Phone Urbano Denis DO Primary Care Provider [phone] Encounter Details Date Type Department Care Team (Latest Contact Info) Description 12/18/2017 8:45 PM EDT - 12/18/2017 11:59 PM EDT Hospital Encounter [place] [address] Discharge Disposition: Home Social History Tobacco Use [...] PM EDT Office Visit Cardiology at [address] [phone] Jay Urban MD [facility] [place] [address] 04/15/2024 10:00 AM EDT Hospital Encounter Non-[place] [phone] Arrived documented as of this encounter Goals Goal Patient Goal Type Associated Problems Recent Progress Patient-Stated? Author [facility] Medication Compliance and Understanding Patient Facing Action Plan On track( 017 10:41 AM EDT) Selena Scott [facility] Note: Patient Goal: Clear hepatitis C Timeframe to meet goal: within 12 weeks of therapy documented as of this encounter Procedures Procedure Name Priority Date/Time Associated Diagnosis Comments TACROLIMUS LEVEL Routine 12/18/2017 12:4 0 PM EDT documented in this encounter Results * Tacrolimus level (12/18/2017 12:40 PM EDT) Tacrolimus 5.2 ng/mL [facility] Comment: Trough therapeutic: ??5-15 ng/mL Performed by ultra-performance liquid chromatography tandem mass spectrometry (UPLCMS/MS). This test was developed and its performance characteristics determined by [facility]. It has not been cleared or approved [...] LES [facility] [place] [address] documented in this encounter Visit Diagnoses Not on filedocumented in this encounter Care Teams Rehabilitation Therapy Technician Relationship Specialty Start Date End Date Urbano Denis DO [address] [place] [address] PCP - General 09/03/12 03/17/22 Hai STANLEY,Ruchi Nurse Clinic Transplant Surgery 07/30/15 documented as of this encounter
--- OUTSIDE RECORDS SUMMARY | 2024-04-04 14:03 | XMS_ITS | Encounter Summary ---
Author Organization [place] [address] Care Team Providers Care Wastewater Superintendent Name Role Phone Urbano Denis DO Primary Care Provider Reason for Referral * Physical Therapy (Routine) - Specialty Diagnoses / Procedures Referred By Humberto flor Referred To Contact Physical Therapy Diagnoses Status post right knee replacement Breezy Dale MD [facility] [place] [address] Referral ID Status Reason Start Date Expiration Date V isits Requested Visits Authorized [id number] Evaluate and Treat 02/01/2018 07/31/2018 12 12 Reason for Visit * Reason Comments Follow Up Surgery Right TKA DOS 8 Encounter Details Date Type Department Care Team (Late st Contact Info) Description 02/01/2018 2:40 PM EDT Office [place] [address] Breezy Dale MD [facility] [place] [address] Status post right knee replacement; S/P R [...] MD, MS Chief, Division of Adult Reconstructive Pharmacy Technician Per [employer] Java J2Ee Developer of Orthopaedics Department [place] Orthopaedics [facility] [address] [email or web address] * Anatoly Richards PA - 02/01/2018 2:40 [...] Sensory: Normal Quadriceps Strength: 4 Questionnaire Responses: [facility] Surgical Postop Visit 02/01/2018 PROMIS-10 General Health [...] Choose Same Treatment Again Completely uncertain Orthopeadics [facility] Response 02/01/2018 KOOS JR Scores 42.28 Spine [facility] Response 02/01/2018 KOOS JR Scores 42.28 ASSESSMENT/PLAN: [...] PM EDT Office Visit Cardiology at [address] [place] [address] Jay Urban MD [facility] [place] [address] 04/15/2024 10:00 AM EDT Hospital Encounter Non-Invasive Cardiology Lab [facility] [place] [phone] Arrived Scheduled Referrals Name Type Priority Associated Diagnoses Orde r Schedule Referral to Physical Therapy Outpatient Referral Routine Status post right knee replacement Ordered: 02/01/2018 documented as of this encounter Goals Goal Patient Goal Type Associated Problems Recent Progress Patient-Stated? Author [facility] Medication Compliance and Understanding Patient Facing [...] 3:41 PM EDT) Neutrophil % 66.3 % [facility] Neutrophil Absolute 5.77 1.70 - 6.10 x10(3)/mcL [facility] Lymph % 19.9 % [facility] Lymphocytes Abs 1.7 0.9 - 3.2 x10(3)/[facility] Monocyte % 9.6 % [facility] Monocyte Abs 0.8 0.3 - 0.9 x10(3)/[facility] Eos % 3.2 % [facility] Eosinophils Abs 0.3 0.0 - 0.4 x10(3)/[facility] Basophil % 0.7 % [facility] Baso Absolute 0.1 0.0 - 0.1 x10(3)/[facility] Immature Gran % 0.30 % [facility] Comment: Immature granulocytes(IG's)percentage and absolute count will include metamyelocytes, myelocytes, and promyelocytes. Blood smears from CBCs yielding IG's will be scanned manually for concordance. If this scan disagrees with the automated IG or if promyelocytes are noted, a manual differential will be performed. Immature Gran Absolute 0.03 0.00 - 0.04 x10(3)/[facility] Blood specimen (specimen) 02/01/2018 3:41 PM EDT 02/01/2018 3:48 PM EDT Narrative Resulting Agency Comment Spec In Lab Breezy Dale MD HEMATOLOGY ORDERABL ES [facility] [address] * Hemogram (02/01/2018 3:41 PM EDT) White Blood Cell 8.7 4.0 - 9.5 x10(3)/[facility] Red Blood Cell 5.16 4.58 - 5.54 x10(6)/[facility] Hemoglobin 15.7 13.7 - 16.5 gm/dL [facility] Hematocrit 45.4 40.5 - 48.5 % [facility] Mean Cell Volume 88.0 82.9 - 93.[address] [facility] Mean Cell Hemoglobin 30.4 27.5 - 32.[address] [facility] Mean Cell Hemoglobin Concentration 34.6 32.0 - 35.7 gm/dL [facility] Platelet 284 145 - 357 x10(3)/[facility] RDW Standard Deviation 44.6 36.0 - 45.0 [facility] RDW coefficient of variation 13.8 11.4 - 13.8 % [facility] Mean Platelet Volume 9.2 7.6 - 12.9 [facility] NRBC% auto 0.0 % [facility] NRBC Absolute 0.000 0.000 - 0.000 x10(3)/[facility] Blood specimen (specimen) 02/01/2018 3:41 PM EDT 02/01/2018 3:48 PM EDT Narrative Resulting Agency Comment Spec In Lab Breezy Dale MD HEMATOLOGY ORDERABL ES Performing Organization Address [facility] Co de Phone Number [facility] [place] [address] * (ABNORMAL) Sedimentation rate (02/01/2018 3:41 PM EDT) Sedimentation Rate Automated 25(H) 0 - 15 mm/hr [facility] Blood specimen (specimen) 02/01/2018 3:41 PM EDT 02/01/2018 3:48 PM EDT Narrative Resulting Agency Comment Spec In Lab Breezy Dale MD HEMATOLOGY ORDERABL ES Performing Organization Address City/[facility]/ZIP Co de Phone Number [facility] [place] [address] * (ABNORMAL) CRP, acute inflammation (02/01/2018 3:41 PM EDT) C-Reactive Protein 8.5(H) <=4.9 mg/L [facility] Blood specimen (specimen) 02/01/2018 3:41 PM EDT 02/01/2018 3:48 PM EDT Narrative Resulting Agency Comment Spec In Lab Breezy Dale MD CHEMISTRY ORDERABLE S [facility] [place] [address] documented in this encounter Visit Diagnoses Diagnosis Status post right knee replacement S/P R TKA 11/25/17 Dr. Dale Knee joint replacement by other means documented in this encounter Care Teams Wastewater Superintendent Relationship Specialty Start Date End Date Urbano Denis DO [address] [place] [address] PCP - General 09/03/12 03/17/22 Ruchi Valles RN Nurse Clinic Transplant Surgery 07/30/15 documented as of this encounter
--- OUTSIDE RECORDS SUMMARY | 2024-04-04 14:03 | XMS_ITS | Encounter Summary ---
Author Organization [facility] Address [facility] [place] [address] Care Team Providers Care Boiling Off Winder Name Role Phone AdeelUrbano Primary Care Provider + [phone] Reason for Visit * Reason Comments Follow Up Surgery right TKA Encounter Details Date Type Department Care Team (Late st Contact Info) Description 03/01/2018 2:10 PM EDT Office [place] [address] Breezy Dale MD [facility] [place] [address] S/P R TKA 11/25/17 Dr. Dale Social [...] MD, MS Chief, Division of Adult Reconstructive Curriculum And Instruction SpecialistDevulcanizer Tender of Orthopaedics Department of Orthopaedics [facility] [address] [email or web address] * Anatoly Richards PA - 03/01/2018 2:10 [...] Sensory: Normal Quadriceps Strength: 4 Questionnaire Responses: [facility] Surgical Postop Visit 03/01/2018 PROMIS-10 General Health [...] Choose Same Treatment Again Completely uncertain Orthopeadics [facility] Response 03/01/2018 KOOS JR Scores 63.78 Spine [facility] Response 03/01/2018 KOOS JR Scores 63.78 ASSESSMENT/PLAN: [...] PM EDT Office Visit Cardiology at [address] [phone] Jay Urban MD [facility] [place] [place] [address] 04/15/2024 10:00 AM EDT Hospital Encounter Non-[place] [phone] Arrived documented as of this encounter Goals [...] means documented in this encounter Care Teams Boiling Off Winder Relationship Specialty Start Date End Date Urbano Denis DO [address] [place] [address] [address] [facility] [address] [place] [address] PCP - General 09/03/12 03/17/22 Ruchi Valles RN Nurse Clinic Transplant Surgery 07/30/15 documented as of this encounter
--- OUTSIDE RECORDS SUMMARY | 2024-04-04 14:03 | XMS_ITS | Encounter Summary ---
[place] [address] Care Team Providers Care Deputy Of Counter Intelligence Name Role Phone Adeel Urbano KIRBY Primary Care Provider Reason for Visit * Auth/Cert Specialty Diagnoses / Procedures Referred By Humberto flor Referred To Contact Diagnoses Hydronephrosis Referral ID Status Reason Start Date Expiration Date Visits Re quested Visits Authorized [id number] 1 1 Encounter Details Date Type Department Care Team (Late st Contact Info) Description 06/17/2018 3:28 PM EST Anesthesia [place] [phone] Jesus Tavares MD [facility] [place] [address] Keenan Washburn MD [facility] [place] [address] Anesthesia Record Procedure Summary Procedure Name Responsible [...] 1605; median cubital vein (antecubital fossa), right; exrp-cvd-vnsuey catheter system; 20 gauge; MLS; 0; 06/18/18; [...] Tavares MD - 06/17/2018 4:16 PM EST [facility] Department of Anesthesiology Post-procedure Note Patient: Cody Bolden Procedure Summary Date: 06/17/18 Room / Location: [address] MAIN OR Anesthesia Start: 1527 Anesthesia Stop: 1558 Procedure: CYSTO, RETROGRADE, URETEROPYELOGRAPHY (WRVU 2.37) (Left Ureter) Diagnosis: (Hydronephrosis) Surgeon: Edinson Grider III, MD Responsible Provider: Jesus Tavares MD Anesthesia Type: general ASA Status: 3 All Anesthesia Providers: Anesthesiologist: Jesus Tavares MD PHARMACY RESOURCE TECH: Sonu Smith CRNA Most Recent Vitals: 06/17/18 1600 BP: 105/50 Pulse: (!) 47 Resp: 17 Temp: SpO2: 95% Pain Patient Location: PACU/[facility] Level of Consciousness: Awake and Alert [...] Vitamin D deficiency ??? 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 superintendent marine oil terminal current use of immunosuppressive drug ??? [...] performed by Que Amaro MD at [facility] MAIN OR ??? PRO REIMPLANT URETER, SINGLE URETER Left 05/20/2016 @URETERONEOCYSTOSTOMY ANASTOMOSIS OF SINGLE URETER TO BLADDER performed by Santosh Arredondo MD at [facility] OR ??? PRO REIMPLANT URETER, SINGLE URETER N/A 05/20/2016 @URETERONEOCYSTOSTOMY ANASTOMOSIS OF SINGLE URETER TO BLADDER performed by Que Amaro MD at [facility] OR ??? PRO TOTAL KNEE ARTHROPLASTY Right 11/25/2017 TOTAL KNEE ARTHROPLASTY (WRVU 20.72) performed by Breezy Dale MD at [facility] MAIN OR ??? PRO TRANSPLANT, PREP CADAVER RENAL GRAFT N/A 09/16/2015 @PREPARATION CADAVERIC RENAL ALLOGRAFT performed by Franko Larkin MD at [facility] OR ??? PRO TRANSPLANTATION OF KIDNEY N/A 09/16/2015 @KIDNEY TRANSPLANT, WITHOUT RECIPIENT NEPHRECTOMY performed by Franko Larkin MD at [facility] OR Social History Tobacco Use ??? Smoking [...] 1:40 PM EDT Office Visit Cardiology at [address] [address] Jay Urban MD [facility] [place] [address] 04/15/2024 10:00 AM EDT Hospital Encounter Non[place] [phone] Arrived documented as of this encounter Goals Goal Patient Goal Type Associated Problems Recent Progress Patient-Stated? Author [facility] Medication Compliance and Understanding Patient Facing Action [...] Ringers infusion CONTINUOUS PRN, Starting on Laura 18 at 1528, Until Laura 06/17/18 at 1559, Anesthesia Intra-op New Bag 06/17/2018 3:28 PM EST lidocaine (PF) (XYLOCAINE) 100 mg/5 mL (2 %) injection PRN, Starting on Laura 06/17/18 at 1529, Until Laura 06/17/18 at 1559, Anesthesia Intra-op, Routine Given 06/17/2018 3:29 PM EST 40 mg midazolam (PF) (VERSED) multi-dose injection PRN, Starting on Laura 18 at 1529, Until Laura 06/17/18 at 1559, Anesthesia Intra-op, Routine Given 06/17/2018 3:29 PM EST 2 mg ondansetron (ZOFRAN) injection PRN, Starting on Laura 18 at 1538, Until Laura 06/17/18 at 1559, Anesthesia Intra-op, Routine Given 06/17/2018 3:38 PM EST 4 mg propofol (DIPRIVAN) 10 mg/mL bolus injection (Anesthesia) PRN, Starting on Laura 06/17/18 at 1529, Until Laura 06/17/18 at 1559, Anesthesia Intra-op Given 06/17/2018 3:29 PM EST 150 mg documented in this encounter Care Teams Deputy Of Counter Intelligence Relationship Specialty Start Date End Date Urbano Denis DO [address] [place] [address] PCP - General 09/03/12 03/17/22 Ruchi Valles RN Nurse Clinic Transplant Surgery 07/30/15 documented as of this encounter
--- OUTSIDE RECORDS SUMMARY | 2024-04-04 14:03 | XMS_ITS | Encounter Summary ---
[place] [address] Care Team Providers Care Seed Sales Manager Name Role Phone AdeelUrbano boland Primary Care Provider [phone] Reason for Visit * Reason Onset Date Comments Medication Refill 06/07/2018 Encounter Details Date Type Department Care Team (Late st Contact Info) Description 06/07/2018 Refill [place] [address] Julia Farris RN Social History Tobacco Use [...] encounter Miscellaneous Notes * Telephone Encounter - Julai Lewis RN - 06/07/2018 9:39 AM EST Spoke with Mara. She reports Yash is out of Magnesium Gluconate 1000mg BID. She would like it filled at [facility] and mailed to them like they have for their other medications. Script sent and [facility] called to confirm shipping. documented in this encounter Plan of Treatment Upcoming Encounters Date Type Department Care Team (Late st Contact Info) Description 04/08/2024 1:40 PM EDT Office Visit Cardiology at [address] [phone] Jay Urban MD [facility] [place] [address] 04/15/2024 10:00 AM EDT Hospital Encounter [place] [address] Arrived documented as of this [...] on filedocumented in this encounter Care Teams Seed Sales Manager Relationship Specialty Start Date End Date Urbano Denis DO [address] [place] [address] PCP - General 09/03/12 03/17/22 Ruchi Valles RN Nurse Clinic Transplant Surgery 07/30/15 documented as of this encounter
--- OUTSIDE RECORDS SUMMARY | 2024-04-04 14:03 | XMS_ITS | Encounter Summary ---
Author Organization [facility] [place] [address] Care Team Providers Care Lehr Tender Name Role Phone AdeelUrbano toscano Primary Care Provider Encounter Details Date Type Department Care Team (Late st Contact Info) Description 12/17/2017 Refill [place] [phone] Sonia Mota RN S/P R TKA 11/25/17 [...] request: Cody Bolden Mailing address: [place] [address] Surgeon: Dr. Dale Case: right total knee [...] the prescription be [place] [facility] [place] and then have the medication mailed. Last appointment: 11/25/2017 Future appointment: 01/04/2018 Last narcotic query: 12/17/2017 documented in this encounter Plan of Treatment Upcoming Encounters Date Type Department Care Team (Late st Contact Info) Description 04/08/2024 1:40 PM EDT Office Visit Cardiology at [address] [phone] Jay Urban MD [facility] [place] [address] 04/15/2024 10:00 AM EDT Hospital Encounter Non-[place]vasive [place] [phone] Arrived documented as of this encounter Goals [...] means documented in this encounter Care Teams Lehr Tender Relationship Specialty Start Date End Date Urbano Denis DO [address] [place] [address] [address] [facility] [address] [place] [address] PCP - General 09/03/12 03/17/22 Ruchi Valles RN Nurse Clinic Transplant Surgery 07/30/15 documented as of this encounter
--- OUTSIDE RECORDS SUMMARY | 2024-04-04 14:03 | XMS_ITS | Encounter Summary ---
Author Organization [facility] Joel [facility], [place] [address] Care Team Providers Care Television Camera Operator Name Role Phone Urbano Denis DO Primary Care Provider [phone] Reason for Visit * Reason Comments Abdominal Pain * Auth/Cert Specialty Diagnoses / Procedures Referred By Humberto flor Referred To Contact Diagnoses Hydronephrosis Referral ID Status Reason Start Date Expiration Date Visits Re quested Visits Authorized [id number] 1 1 Encounter Details Date Type Department Care Team (Latest Contact Info) Description 06/17/2018 3:16 PM EST - 06/17/2018 4:35 PM EST Surgery [place] [address] Edinson Grider III, MD [facility] [place] [address] CYSTO, RETROGRADE, URETEROPYELOGRAPHY (WRVU 2.37) Social History [...] Vitamin D deficiency ??? 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 [...] or rigors on Thursday and presented to [facility] where he was worked up in [...] and emesis on Thursday prior to the [facility] visit.This spontaneously resolved and he has [...] calculus in the ureter of the LEFT [place] kidney with evidence of proximal hydroureter and [...] (WRVU 2.37) Operative Findings: 1. B/l orthotopic [place] UOs 2. 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 Normal bladder 4. No contrast passed proximally up left [place] ureter, unable to advance wire, distal ureter had been previously ligated Hospital Course: Ethel Akins was admitted to the Transplant Surgery service on 06/16/18 with RIGHT abdominal pain. Work up with CT scan and abdominal US was notable for hydronephrosis of left [place] ureter with 6x10mm stone. No evidence of sepsis or intraperitoneal process with reassuring imag ing/labs, benign abdominal exam and vital signs within normal limits. 06/17/18 the patient was taken to the OR with urology and retrograde ureteropyelogram confirmed, as noted in op report, that the L [place] ureter had been ligated during previous Boari [...] and given to the patient. Patient Instructions [employer] Department of Surgery Discharge Instructions PROCEDURES THIS [...] with the Surgery nurses. The number is [phone]. - During the night or weekends call the [facility] [place] mingle operator at [phone] and ask to speak to the surgery resident admissions manager for general surgery. Please note: Your surgeon may not be Airport Operations Duty Manager, especially during the night or on weekends, so be ready to describe yourself and your surgery when you call. FOLLOW UP You will have an appointment made with the transplant clinic- you will be contacted- please call with any questions Future Appointments Date Time Provider Department Center 06/18/2018 8:00 AM [facility] ROOM 8 [facility] information via phone/mail in the next week. If you do not hear anything, please call the clinic [phone] to confirm or reschedule. If you need a prior authorization, please call the General Surgery Clinic nurses [phone] for prior authorizations assistance General Instructions Instructions [...] to urinate, please call our office at [phone] before 5PM or [phone] after hours. Call Doctor for: - copious blood or large clots in your urine - you are unable to urinate - severe back or side pain - pain not controlled by oral medications at home - persistent nausea and vomiting - any fever > 101.3F The number for questions is [phone] before 5 PM weekdays and [phone] after 5 PM and weekends. Follow-up Recommendations [...] to urinate, please call our office at [phone] before 5PM or [phone] after hours. Call Doctor for: - copious blood or large clots in your urine - you are unable to urinate - severe back or side pain - pain not controlled by oral medications at home - persistent nausea and vomiting - any fever > 101.3F The number for questions is [phone] before 5 PM weekdays and [phone] after 5 PM and weekends. * Patient Instructions* Jennifer Palmer Joel - 06/17/2018 5:29 PM EST [employer] Department of Surgery Discharge Instructions PROCEDURES THIS [...] with the Surgery nurses. The number is [phone]. - During the night or weekends call the [facility] mingle operator at [phone] and ask to speak to the surgery resident admissions manager for general surgery. Please note: Your surgeon may not be Airport Operations Duty Manager, especially during the night or on weekends, so be ready to describe yourself and your surgery when you call. FOLLOW UP You will have an appointment made with the transplant clinic- you will be contacted- please call with any questions Future Appointments Date Time Provider Department Center 06/18/2018 8:00 AM [facility] ROOM 8 [facility] information via phone/mail in the next week. If you do not hear anything, please call the clinic [phone] to confirm or reschedule. If you need a prior authorization, please call the General Surgery Clinic nurses [phone] for prior authorizations assistance documented in this [...] 06/16/2018 Attending Physician: Jennifer Amaro MD Patient Etehl discharged to home today @ 1500. New medications and discharge paperwork reviewed with patient. Patient reported understanding. Patient had no questions or concerns regarding care. * Jennifer Amaro MD - 06/18/2018 1:49 PM EST [facility] [place] Progress Note Patient Name: Ethel Akins : [id number] MR#: [id number] Admit Date: 06/16/2018 2:45 PM Mr. Akins is hospital day #2 following admission for right lower quadrant pain that radiates to the right testicle. I reviewed Dr. Arredondo's operative report yesterday and the records suggested that Dr. Arredondo ligated the left [place] ureter at the patient's Boari flap reconstruction operation that took place in 2015. This was likely to have explained the dilated left [place] kidney collecting system and hydroureter. I contacted [...] Intraoperative findings as follows: 1. B/l orthotopic [place] UOs 2. 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 Normal bladder 4. No contrast passed proximally up left [place] ureter, unable to advance wire, distal ureter [...] RLQ abdominal pain, found to have obstructed [place] LEFT ureter with 6x10mm stone 24h/S Reports [...] previously there is severe 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 ?? Transplant kidney: Transplant kidney [...] imaging showing 6x10mm obstructing stone in LEFT [place] ureter. He continues to report R>L Abdominal [...] BY: ED CONSULTATION QUESTION: Obstruction of L [place] ureter. CC: RLQ abd pain 67??y.o. male [...] EXTREMITY performed by Jennifer Amaro MD at [facility] OR ??? PRO REIMPLANT URETER, SINGLE URETER Left 05/20/2016 @URETERONEOCYSTOSTOMY ANASTOMOSIS OF SINGLE URETER TO BLADDER performed by Santosh Arredondo MD at [facility] OR ??? PRO REIMPLANT URETER, SINGLE URETER N/A 05/20/2016 @URETERONEOCYSTOSTOMY ANASTOMOSIS OF SINGLE URETER TO BLADDER performed by Jennifer Amaro MD at [facility] OR ??? PRO TOTAL KNEE ARTHROPLASTY Right [...] MD at [facility] OR Family History: Family History Problem Relation [...] on CT is a 6x10mm obstructing L [place] ureteral stone with new hydronephrosis. His appendix [...] or rigors on Thursday and presented to [facility] where he was worked up in their emergency department and received aRUQ US that did not demonstrate evidence of acute cholecystitis or a dilated biliary system. He wasdischarged home the same day and continued to experience low level gnawing pain in the RLQ that was in a 4-5 range. He had one episode of nausea and emesis on Thursday prior to the [facility] visit. This spontaneously resolved and he [...] calculus in the ureter of the LEFT [place] kidney with evidence of proximal hydroureter and hydronephrosis. There is no gas in the collecting system proximal to this obstruction. Review of Dr. Arredondo's 05/2016 operative report indicates that the left [place] ureter was ligated at that procedure which [...] need for therapy of the dilated left [place] kidney tract in the setting of the left [place] kidney ureter ligation in 2016. This is [...] home doses. Will verify this with the post-economic development coordinator team. Tacrolimus trough level pending and will return this afternoon. No indication for reduction in immunosuppression at this time. documented in this encounter ED Notes * Halima Contreras RN - 06/16/2018 5:20 PM EST Pt reports he just went to bathroom, aware we need urine sample and will collect with next urination. * Giovanna Arriola - 06/16/2018 3:06 PM EST Ethle Akins is an 67 y.o. male who [...] Patient states that Thursday he presented to [facility] with what he thought was appendicitis; he [...] this before. Had 2x cup coffee and pashto muffin today, but states that appetite has [...] previously there is severe 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 ?? Transplant kidney: Transplant kidney [...] mm renal calculous and new hydronephrosis in [place] kidney. He was seen by transplant medicine [...] residual kidney stone and obstruction in his [place] kidney on the left. Because of the tenuous nature of his transplant the transplant service would like to admit him. documented in this encounter Miscellaneous Notes * Op Note - Edinson Grider III, MD - 06/17/2018 3:45 PM EST [facility] [place] Note Patient Name: Ethel Akins : [id number] MR#: [id number] Case Date: 06/17/2018 Surgeon: Surgeon(s) and Role: * Edinson Grider III, MD - Primary * Shin Elam MD - Resident-Surgeon Chief Preoperative diagnosis: Hydronephrosis Postoperative diagnosis: Hydronephrosis Procedure(s) (LRB): CYSTO, RETROGRADE, URETEROPYELOGRAPHY (WRVU 2.37) (Left) Findings: 1. B/l orthotopic [place] UOs 2. 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 Normal bladder 4. No contrast passed proximally up left [place] ureter, unable to advance wire, distal ureter [...] bladder. 360 degree cystoscopy revealed b/l orthotopic [place] UOs and a widely patient reimplant ureter/Boari [...] an incidental finding of a hydronephrotic left [place] kidney with a 6 x 10 mid [...] Health/Prescription Coverage: Primary Insurance: MEDICARE Secondary Insurance: [employer] Prescription Coverage: Yes; can manage minimal out of pocket co-pays. Preferred Pharmacy: [facility] mails prescriptions to pt's home. Primary Care Provider: Urbano Denis DO [phone] Patient/Caregiver Goals of Treatment: Effective pain management; effective stent placement with lessoning of hydronephrosis. Potential Needs for Transition of Care: Rehab/SNF: no Home Health: no DME: Owns a cane, fww. Dialysis: no Community Resources: None offered. Transportation: Pt drove himself [place] [facility] [place]; car here; he plans to drive himself home. Anticipated Barriers to Discharge/Special Considerations: None. Assessment: Pt admitted from the ED after complaining of right abdominal pain. CT of abdomen showed, normal left lower quadrant transplant kidney but a 6 x 10 mm obstructing stone in the mid to distal ureter with marketed hydronephrosis of the left [place] kidney. Plan: Pt going to OR today for placement of left ureteral stent. [facility]. Pt does not need any home services at time of interview. A member of the Care Management team will continue to monitor progress, follow for continuity of care and assist with transition of care planning. Giovanna Haro RN Pager: [phone] * Consult Note - Tal Chen MD [...] ureter with marketed hydronephrosis of the left [place] kidney. Urology was consulted for obstructing ureteral stone of [place] left kidney in the setting of immunosuppression [...] EXTREMITY performed by Jennifer Amaro MD at [facility] OR ??? PRO REIMPLANT URETER, SINGLE URETER Left 05/20/2016 @URETERONEOCYSTOSTOMY ANASTOMOSIS OF SINGLE URETER TO BLADDER performed by Santosh Arredondo MD at [facility] OR ??? PRO REIMPLANT URETER, SINGLE URETER N/A 05/20/2016 @URETERONEOCYSTOSTOMY ANASTOMOSIS OF SINGLE URETER TO BLADDER performed by Jennifer Amaro MD at [facility] OR ??? PRO TOTAL KNEE ARTHROPLASTY Right [...] MD at [facility] OR No current facility-administered medications on file [...] previously there is severe 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 ?? Transplant kidney: Transplant kidney [...] an incidental finding of a hydronephrotic left [place] kidney with a 6 x 10 mid [...] However, the patient has an obstructed left [place] kidney and is on immunosuppression.Therefore, we would [...] feels that ureteral stent placement for left [place] kidney decompression isindicated at this time give [...] Chen MD, MPH Urology, PGY-2 Consult Pager #[phone] 06/17/2018 * Plan of Care - Ozzy [...] Appropriate) 06/17/18 0403 Interdisciplinary Rounds/Family Conf Participants mattress spring encaser;physician;pharmacy * Consult Note - Tal Chen MD [...] ureter with marketed hydronephrosis of the left [place] kidney. Urology was consulted for obstructing ureteral stone of [place] left kidney in the setting of immunosuppression [...] EXTREMITY performed by Jennifer Amaro MD at [facility] OR ??? PRO REIMPLANT URETER, SINGLE URETER Left 05/20/2016 @URETERONEOCYSTOSTOMY ANASTOMOSIS OF SINGLE URETER TO BLADDER performed by Santosh Arredondo MD at [facility] OR ??? PRO REIMPLANT URETER, SINGLE URETER N/A 05/20/2016 @URETERONEOCYSTOSTOMY ANASTOMOSIS OF SINGLE URETER TO BLADDER performed by Jennifer Amaro MD at [facility] OR ??? PRO TOTAL KNEE ARTHROPLASTY Right [...] MD at [facility] OR No current facility-administered medications on file [...] previously there is severe 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 ?? Transplant kidney: Transplant kidney [...] an incidental finding of a hydronephrotic left [place] kidney with a 6 x 10 mid [...] However, the patient has an obstructed left [place] kidney and is on immunosuppression.Therefore, we would [...] Chen MD, MPH Urology, PGY-2 Consult Pager #[phone] 06/16/2018 Associated attestation - Fermin Whitney MD - 06/18/2018 7:33 AM EST I have seen the patient and reviewed the resident's above history and I agree with the details as written. The assessment and plan were formulated in discussion with me and I agree with them as documented. In discussion with Dr. Amaro, it sounds like his left [place] ureter was ligated during repair ofhis necrotic [...] PM EDT Office Visit Cardiology at [address] [address] Jay Urban MD [facility] [place] [address] 04/15/2024 10:00 AM EDT Hospital Encounter Non-[place] [id number] Arrived documented as of this encounter Goals Goal Patient Goal Type Associated Problems Recent Progress Patient-Stated? Author [facility] Medication Compliance and Understanding Patient Facing [...] AM EST) HCV Viral Load <12 IU/mL [facility] HCV Viral Load Result: <12 IU/mL (Target Not Detected) Indication for Study: Hepatitis C Infection Analysis: The [employer]ks RealTime HCV assay is an in vitro reverse cosmetics demonstrator polymerase chain reaction (RT-PCR)for the quantitation of hepatitis C viral (HCV) RNA in human serum or plasma (EDTA) from HCV-infected individuals. Sample: plasma (0.7 mL minimum volume) Method: Sparks RealTime HCV Assay Linear Range: 12 IU/mL - 100,000,000IU/mL Note: The Sparks RealTime HCV Assay has been approved by the U.S. Food and Drug Administration. [facility] Comment: [VERIFIED DATE]06.23.18 Verified By:Nella Evans (Electronic Signature) Blood specimen (specimen) 06/18/2018 11:07 AM EST 06/21/2018 11:26 AM EST Narrative Resulting Agency Comment Spec In Lab Jennifer JENNINGS [facility] [place] [address] * US Scrotum (06/18/2018 8:45 AM EST) [...] 09:31 am) PATIENT INFO: ID #: ? [id number] ?: ??48 (67 yrs) Name: ? ETHEL Patricia AKINS ?Visit Date: 06/18/2018 08:42 am PERFORMED BY: Performed By: ? Osmar Dowd RDMS Attending: ?Kristen GERBER, Valencia Almonte Resident: ? Patricia Malik DO Referred By: ?JENNIFER AMARO Location: ? [place] SERVICE(S) PROVIDED: ??[facility] - Scrotum and Contents with Limited Vascular ?26013, 10538 ??evaluation - [id number] INDICATIONS: ??RLQ and scrotal pain RIGHT TESTICLE: [...] 06/18/2018 09:31 am) PATIENT INFO: ID #: [id number] : 48 (67 yrs) Name: ETHEL AKINS Visit Date: 06/18/2018 08:42 am PERFORMED BY: Performed By: Osmar Dowd RDMS Attending: Valencia Carson MD Resident: Patricia Malik DO Referred By: JENNIFER AMARO Location: [place] SERVICE(S) PROVIDED: [facility] - Scrotum and Contents with Limited Vascular [address], [address] evaluation - [id number] INDICATIONS: RLQ and scrotal pain RIGHT TESTICLE: [...] 5:53 AM EST) Neutrophil % 61.9 % [facility] Neutrophil Absolute 4.45 1.70 - 6.10 x10(3)/[facility] Lymph % 23.8 % [facility] Lymphocytes Abs 1.7 0.9 - 3.2 x10(3)/[facility] Monocyte % 8.4 % [facility] Monocyte Abs 0.6 0.3 - 0.9 x10(3)/[facility] Eos % 4.5 % [facility] Eosinophils Abs 0.3 0.0 - 0.4 x10(3)/[facility] Basophil % 1.0 % [facility] Baso Absolute 0.1 0.0 - 0.1 x10(3)/[facility] Immature Gran % 0.40 % [facility] Comment: Immature granulocytes(IG's)percentage and absolute count will include metamyelocytes, myelocytes, and promyelocytes. Blood smears from CBCs yielding IG's will be scanned manually for concordance. If this scan disagrees with the automated IG or if promyelocytes are noted, a manual differential will be performed. Immature Gran Absolute 0.03 0.00 - 0.04 x10(3)/[facility] Blood specimen (specimen) 06/18/2018 5:53 AM EST 06/18/2018 6:13 AM EST Narrative Resulting Agency Comment Spec In Lab Jennifer Palmer MD HEMATOLOGY OR DERABLES [facility] [place] [address] * Hemogram (06/18/2018 5:53 AM EST) White Blood Cell 7.2 4.0 - 9.5 x10(3)/[facility] Red Blood Cell 5.13 4.58 - 5.54 x10(6)/[facility] Hemoglobin 15.6 13.7 - 16.5 gm/dL [facility] Hematocrit 45.5 40.5 - 48.5 % [facility] Mean Cell Volume 88.7 82.9 - 93.1 fL [facility] Mean Cell Hemoglobin 30.4 27.5 - 32.1 pg [facility] Mean Cell Hemoglobin Concentration 34.3 32.0 - 35.7 gm/dL [facility] Platelet 259 145 - 357 x10(3)/[facility] RDW Standard Deviation 42.3 36.0 - 45.0 [facility] RDW coefficient of variation 13.0 11.4 - 13.8 % [facility] Mean Platelet Volume 9.8 7.6 - 12.9 fL [facility] NRBC% auto 0.0 % [facility] NRBC Absolute 0.000 0.000 - 0.000 x10(3)/[facility] Blood specimen (specimen) 06/18/2018 5:53 AM EST 06/18/2018 6:13 AM EST Narrative Resulting Agency Comment Spec In Lab Jennifer Palmer MD HEMATOLOGY OR DERABLES [facility] [place] [address] * Phosphorus (06/18/2018 5:53 AM EST) Phosphorus 3.3 2.5 - 4.5 mg/dL [facility] Blood specimen (specimen) 06/18/2018 5:53 AM EST 06/18/2018 6:13 AM EST Narrative Resulting Agency Comment Spec In Lab Jennifer Amaro MD CHEMISTRY ORDTiny JENNINGS Performing Organization Address [facility] Co de Phone Number [facility] [place] [address] * Magnesium (06/18/2018 5:53 AM EST) Pathologist [facility] Magnesium 0.72 0.69 - 1.07 mmol/L [facility] Blood specimen (specimen) 06/18/2018 5:53 AM EST 06/18/2018 6:13 AM EST Narrative Resulting Agency Comment Spec In Lab Jennifer Amaro MD CHEMISTRY ORDTiny JENNINGS Performing Organization Address [facility] Co de Phone Number [facility] [place] [address] * (ABNORMAL) Comprehensive metabolic panel (non-fasting) (06/18/2018 5:53 AM EST) Pathologist [facility] Glucose 113 65 - 199 mg/dL [facility] Comment:Diabetes: >=200 mg/d L plus symptoms Blood Urea Nitrogen 18 10 - 20 mg/dL [facility] Creatinine 1.34 0.80 - 1.50 mg/dL [facility] Sodium 139 135 - 145 mmol/L [facility] [...] mg/dL [facility] Protein, Total 6.4 6.1 - 8.0 gm/dL [facility] Albumin 3.5 3.2 - 5.2 gm/dL [facility] Aspartate Aminotransferase 14 0 - 39 unit/L [facility] Alanine Aminotransferase 14 0 - 55 unit/L [facility] Alkaline Phosphatase 61 40 - 120 unit/L [facility] Bilirubin, Total 2.7(H) 0.2 - 1.3 mg/dL [facility] Est Glomerular Filtration Rate 54(L) >=60 mL/min/1. 73 m?? [facility] Comment: The eGFR was calculated using the CKD-EPI equation. As with all creatinine based estimates of kidney function, eGFR values calculated with the CKD-EPI equation are not accurate in patients with acute kidney failure, extremes of body mass or the acutely ill. [email or web address] [place] eGFR 62 >=60 mL/min/1. 73 m?? [facility] Comment: The eGFR was calculated using the CKD-EPI equation. As with all creatinine based estimates of kidney function, eGFR values calculated with the CKD-EPI equation are not accurate in patients with acute kidney failure, extremes of body mass or the acutely ill. [email or web address] [place] Blood specimen (specimen) 06/18/2018 5:53 AM EST 06/18/2018 6:13 AM EST Narrative Resulting Agency Comment Spec In Lab Jennifer Amaro MD CHEMISTRY ROCHELLE JENNINGS [facility] Organization Address City/State/ZIP Co de Phone Number [facility] [place] [address] * XR Fluoro No Rad <1Hr - OR Use (06/17/2018 4:05 PM EST) Narrative RAD - 06/17/2018 4:05 PM EST This order does not need a radiologist interpretation. ?? Jennifer Amaro MD IMG FLUORO ORD ERABLES Performing Organization Address City/[facility]/ZIP Co de Phone Number [place], [place] * ABORH Recheck Status (06/17/2018 1:51 PM EST) ABORH Type Recheck Completed [facility] Blood specimen (specimen) 06/17/2018 1:51 PM EST 06/17/2018 3:10 PM EST Narrative Resulting Agency Comment Spec In Lab Jennifer Amaro MD BLOOD BANK LAB ORDERABLES Performing Organization Address [facility] Co de Phone Number [facility] [place] [address] * Antibody screen (06/17/2018 1:51 PM EST) Ab Screen Interp Negative [facility] Expires at [id number] on: 06/20/2018 [facility] Blood specimen (specimen) 06/17/2018 1:51 PM EST 06/17/2018 3:10 PM EST Narrative Resulting Agency Comment Spec In Lab Jennifer Amaro MD BLOOD BANK LAB ORDERABLES Performing Organization Address City/[facility] Co de Phone Number [facility] [place] [address] * ABO/Rh Typing (06/17/2018 1:51 PM EST) ABORH Type AB Pos [facility] Blood specimen (specimen) 06/17/2018 1:51 PM EST 06/17/2018 3:10 PM EST Narrative Resulting Agency Comment Spec In Lab Jennifer Amaro MD BLOOD BANK LAB ORDERABLES Performing Organization Address City/[facility]/ZIP Co de Phone Number [facility] [place] [address] * Tacrolimus level (06/17/2018 8:50 AM EST) Tacrolimus 5.2 ng/mL [facility] Comment: Trough therapeutic: ??5-15 ng/mL Performed by ultra-performance liquid chromatography tandem mass spectrometry (UPLCMS/MS). This test was developed and its performance characteristics determined by [facility]. It has not been cleared [...] Lucero MD CHEMISTRY ORDERABLES Performing Organization Address [facility] Co de Phone Number [facility] [place] [address] * Lipase (06/17/2018 6:19 AM EST) Lipase 25 0 - 60 unit/L [facility] Blood specimen (specimen) 06/17/2018 6:19 AM EST 06/17/2018 6:40 AM EST Narrative Resulting Agency Comment Spec In Lab Jennifer Amaro MD CHEMISTRY ORDTiny JENNINGS Performing Organization Address [facility] Co de Phone Number [facility] [place] [address] * Amylase (06/17/2018 6:19 AM EST) Amylase 29 28 - 100 unit/L [facility] Blood specimen (specimen) 06/17/2018 6:19 AM EST 06/17/2018 6:39 AM EST Narrative Resulting Agency Comment Spec In Lab Jennifer Amaro MD CHEMISTRY ORDE RABLENORE Performing Organization Address [facility]/ZIP Co de Phone Number [facility] [place] [address] * Phosphorus (06/17/2018 6:19 AM EST) Phosphorus 2.8 2.5 - 4.5 mg/dL [facility] Blood specimen (specimen) 06/17/2018 6:19 AM EST 06/17/2018 6:39 AM EST Narrative Resulting Agency Comment Spec In Lab Jennifer Amaro MD CHEMISTRY ORDE DICK Performing Organization Address [facility]/ZIP Co de Phone Number [facility] [place] [address] * Magnesium (06/17/2018 6:19 AM EST) Pathologist [facility] Magnesium 0.70 0.69 - 1.07 mmol/L [facility] Blood specimen (specimen) 06/17/2018 6:19 AM EST 06/17/2018 6:39 AM EST Narrative Resulting Agency Comment Spec In Lab Jennifer Amaro MD CHEMISTRY ORDE DICK Performing Organization Address [facility]/ZIP Co de Phone Number [facility] [place] [address] * (ABNORMAL) Comprehensive metabolic panel (non-fasting) (06/17/2018 6:19 AM EST) Pathologist [facility] Glucose 108 65 - 199 mg/dL [facility] Comment:Diabetes: >=200 mg/d L plus symptoms Blood Urea Nitrogen 14 10 - 20 mg/dL [facility] Creatinine 1.20 0.80 - 1.50 mg/dL [facility] Sodium 139 135 - 145 mmol/L [facility] mg/dL [facility] Protein, Total 6.5 6.1 - 8.0 gm/dL [facility] Albumin 3.4 3.2 - 5.2 gm/dL [facility] Aspartate Aminotransferase 16 0 - 39 unit/L [facility] Alanine Aminotransferase 17 0 - 55 unit/L [facility] Alkaline Phosphatase 64 40 - 120 unit/L [facility] Bilirubin, Total 2.8(H) 0.2 - 1.3 mg/dL [facility] Est Glomerular Filtration Rate 61 >=60 mL/min/1. 73 m?? [facility] Comment: The eGFR was calculated using the CKD-EPI equation. As with all creatinine based estimates of kidney function, eGFR values calculated with the CKD-EPI equation are not accurate in patients with acute kidney failure, extremes of body mass or the acutely ill. [email or web address] [place] eGFR 71 >=60 mL/min/1. 73 m?? [facility] Comment: The eGFR was calculated using the CKD-EPI equation. As with all creatinine based estimates of kidney function, eGFR values calculated with the CKD-EPI equation are not accurate in patients with acute kidney failure, extremes of body mass or the acutely ill. [email or web address] Blood specimen (specimen) 06/17/2018 6:19 AM EST 06/17/2018 6:39 AM EST Narrative Resulting Agency Comment Spec In Lab Jennifer Amaro MD CHEMISTRY ROCHELLE JENNINGS [facility] [place] [address] * Hemogram (06/17/2018 6:19 AM EST) White Blood Cell 7.6 4.0 - 9.5 x10(3)/[facility]AT[facility] Red Blood Cell 5.13 4.58 - 5.54 x10(6)/[facility] Hemoglobin 15.9 13.7 - 16.5 gm/dL [facility] Hematocrit 45.6 40.5 - 48.5 % [facility] Mean Cell Volume 88.9 82.9 - 93.1 fL [facility] Mean Cell Hemoglobin 31.0 27.5 - 32.1 pg [facility] Mean Cell Hemoglobin Concentration 34.9 32.0 - 35.7 gm/dL [facility] Platelet 274 145 - 357 x10(3)/[facility] LABORATORY RDW Standard Deviation 42.4 36.0 - 45.0 [facility]ORATORY RDW coefficient of variation 13.0 11.4 - 13.8 % [facility] Mean Platelet Volume 9.8 7.6 - 12.9 [facility]ORY NRBC% auto 0.0 % [facility] NRBC Absolute 0.000 0.000 - 0.000 x10(3)/[facility] Blood specimen (specimen) 06/17/2018 6:19 AM EST 06/17/2018 6:40 AM EST Narrative Resulting Agency Comment Spec In Lab Jennifer Amaro MD HEMATOLOGY ORD ERABLES [facility] [place] [address] * Lipase (06/16/2018 9:54 PM EST) Lipase 44 0 - 60 unit/L [facility] Blood specimen (specimen) 06/16/2018 9:54 PM EST 06/16/2018 10:03 PM EST Narrative Resulting Agency Comment Spec In Lab Ari Lucero MD CHEMISTRY ORDERABLES Performing Organization Address City/[facility]/ZIP Co de Phone Number [facility] [place] [address] * Phosphorus (06/16/2018 9:54 PM EST) Phosphorus 2.9 2.5 - 4.5 mg/dL [facility] Blood specimen (specimen) 06/16/2018 9:54 PM EST 06/16/2018 10:03 PM EST Narrative Resulting Agency Comment Spec In Lab Ari Lucero MD CHEMISTRY ORDERABLES Performing Organization Address [facility] Co de Phone Number [facility] [place] [address] * (ABNORMAL) Magnesium (06/16/2018 9:54 PM EST) Magnesium 0.61(L) 0.69 - 1.07 mmol/L [facility] Blood specimen (specimen) 06/16/2018 9:54 PM EST 06/16/2018 10:03 PM EST Narrative Resulting Agency Comment Spec In Lab Ari Lucero MD CHEMISTRY ORDERABLES Performing Organization Address [facility] Co de Phone Number [facility] [place] [address] * Amylase (06/16/2018 9:54 PM EST) Amylase 34 28 - 100 unit/L [facility] Blood specimen (specimen) 06/16/2018 9:54 PM EST 06/16/2018 10:03 PM EST Narrative Resulting Agency Comment Spec In Lab Ari Lucero MD CHEMISTRY ORDERABLES Performing Organization Address City/[facility]/ZIP Co de Phone Number [facility] [place] [address] * Hemogram (06/16/2018 9:54 PM EST) White Blood Cell 9.2 4.0 - 9.5 x10(3)/[facility] Red Blood Cell 5.25 4.58 - 5.54 x10(6)/[facility] LABORATORY Hemoglobin 15.7 13.7 - 16.5 gm/dL [facility] Hematocrit 44.8 40.5 - 48.5 % [facility] Mean Cell Volume 85.3 82.9 - 93.1 [facility] Mean Cell Hemoglobin 29.9 27.5 - 32.1 pg [facility] Mean Cell Hemoglobin Concentration 35.0 32.0 - 35.7 gm/dL [facility] Platelet 270 145 - 357 x10(3)/[facility] LABORATORY RDW Standard Deviation 39.4 36.0 - 45.0 [facility]ORY RDW coefficient of variation 12.9 11.4 - 13.8 % [facility] Mean Platelet Volume 9.5 7.6 - 12.9 [facility] LAB[facility]ATORY NRBC% auto 0.0 % [facility] NRBC Absolute 0.000 0.000 - 0.000 x10(3)/[facility] Blood specimen (specimen) 06/16/2018 9:54 PM EST 06/16/2018 10:03 PM EST Narrative Resulting Agency Comment Spec In Lab Ari Lucero MD HEMATOLOGY ORDERABLE S Performing Organization Address City/State/[facility] Co de Phone Number [facility] [place] [address] * (ABNORMAL) Comprehensive metabolic panel (non-fasting) (06/16/2018 9:54 PM EST) Glucose 99 65 - 199 mg/dL [facility] Comment:Diabetes: >=200 mg/d L plus symptoms Blood Urea Nitrogen 14 10 - 20 mg/dL [facility] Creatinine 1.12 0.80 - 1.50 mg/dL [facility] Sodium 139 135 - 145 mmol/L [facility] Potassium 3.4(L) 3.5 - 5.0 mmol/L [facility] [...] gm/dL [facility] Aspartate Aminotransferase 17 0 - 39 unit/L [facility] Alanine Aminotransferase 16 0 - 55 unit/L [facility] Alkaline Phosphatase 65 40 - 120 unit/L [facility] Bilirubin, Total 2.3(H) 0.2 - 1.3 mg/dL [facility] Est Glomerular Filtration Rate 67 >=60 mL/min/1. 73 m?? [facility] Comment: The eGFR was calculated using the CKD-EPI equation. As with all creatinine based estimates of kidney function, eGFR values calculated with the CKD-EPI equation are not accurate in patients with acute kidney failure, extremes of body mass or the acutely ill. [email or web address] [place] eGFR 77 >=60 mL/min/1. 73 m?? [facility] Comment: The eGFR was calculated using the CKD-EPI equation. As with all creatinine based estimates of kidney function, eGFR values calculated with the CKD-EPI equation are not accurate in patients with acute kidney failure, extremes of body mass or the acutely ill. [email or web address] Blood specimen (specimen) 06/16/2018 9:54 PM EST 06/16/2018 10:03 PM EST Narrative Resulting Agency Comment Spec In Lab Ari Lucero MD CHEMISTRY ORDERABLES Performing Organization Address City/[facility]/ZIP Co de Phone Number [facility] [place] [address] * Blood culture (06/16/2018 6:51 PM EST) Blood Culture No growth at 5 days. [facility] Blood specimen (specimen) 06/16/2018 6:51 PM EST 06/16/2018 7:55 PM EST Comment:RH Narrative Resulting Agency Comment Spec In Lab Ari Lucero MD MICROBIOLOGY - BLOOD ORDERABLES Performing Organization Address [facility] Co de Phone Number [facility] [place] [address] * Blood culture (06/16/2018 6:35 PM EST) Blood Culture No growth at 5 days. [facility] Blood specimen (specimen) 06/16/2018 6:35 PM EST 06/16/2018 7:50 PM EST Comment:RAC Narrative Resulting Agency Comment Spec In Lab Ari Lucero MD MICROBIOLOGY - BLOOD ORDERABLES Performing Organization Address [facility] Co de Phone Number [facility] [place] [address] * Urinalysis Microscopic Exam (06/16/2018 6:33 PM EST) RBC, Urine 2 0 - 3 /HPF [facility] WBC, Urine <1 0 - 3 /HPF [facility] Urine specimen obtained by clean catch procedure (specimen) 06/16/2018 6:33 PM EST 06/16/2018 7:10 PM EST Narrative Resulting Agency Comment Spec In Lab Giovanna Arriola MD URINE ORDERABLES Performing Organization Address City/[facility]/ZIP Co de Phone Number [facility] [place] [address] * Urine Hold (06/16/2018 6:33 PM EST) Hold, Urine Sample in lab. [facility] Urine specimen (specimen) Urine / Unknown 06/16/2018 6:33 PM EST 06/16/2018 7:11 PM EST Giovanna Arriola MD URINE ORDERABLES Performing Organization Address City/[facility]/ZIP Co de Phone Number [facility] [place] [address] * (ABNORMAL) Urine culture Clean Catch Urine (06/16/2018 6:33 PM EST) Urine Culture 1,000-9,000 cfu/ml Gram Positive organisms , probable contaminant(A ) [facility] Urine specimen obtained by clean catch procedure (specimen) 06/16/2018 6:33 PM EST 06/16/2018 7:48 PM EST Narrative Resulting Agency Comment Spec In Lab Ari Lucero MD MICROBIOLOGY - GENER AL ORDERABLES Performing Organization Address City/[facility]/ZIP Co de Phone Number [facility] [place] [address] * (ABNORMAL) Urinalysis with reflex Culture (06/16/2018 6:33 PM EST) Glucose, Urine Dipstick Negative Negative mg/dL [facility] [...] Leukocytes, Urine Dipstick Negative Negative [facility]ORY Appearance, Urine Dipstick Clear Clear [facility] Specific [place] Urine Automated 1.010 1.002 - 1.030 [facility] Color, Urine Dipstick Straw Yellow [facility] Reflex to Culture No [facility] Urine specimen obtained by clean catch procedure (specimen) 06/16/2018 6:33 PM EST 06/16/2018 7:10 PM EST Narrative Resulting Agency Comment Spec In Lab Ari Lucero MD URINE ORDERABLES [facility] [place] [address] * CT Abdomen & Pelvis wo Contrast [...] previously there is severe 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 Transplant kidney: Transplant kidney noted [...] previously there is severe atrophy of the [place] LEFTkidney.. Transplant kidney: Transplant kidney noted in [...] 04:48 pm) PATIENT INFO: ID #: ? [id number] ?: ??[birth year] (67 yrs) Name: ? ETHEL AKINS ?Visit Date: 06/16/2018 04:37 pm PERFORMED BY: Performed By: ? Nicole Thompson RDMS Attending: ?Esa GERBER, Joseph Verduzco Resident: ? Patricia Malik DO Referred By: ?NICK MENDES Location: ? [place] SERVICE(S) PROVIDED: ??UABDLIM - Abdominal Limited Survey Single ? [id number] ??Organ or Quadrant - [id number] INDICATIONS: ??RUQ pain COMPARISON: Prior CT: 06/12/18. [...] 06/16/2018 04:48 pm) PATIENT INFO: ID #: [id number] : [birth year] (67 yrs) Name: ETHEL AKINS Visit Date: 06/16/2018 04:37 pm PERFORMED BY: Performed By: Nicole Thompson RDMS Attending: Joseph See MD Resident: Patricia Malik DO Referred By: NICK MENDES Location: [place] SERVICE(S) PROVIDED: UABDLIM - Abdominal Limited Survey Single 40597 Organ or Quadrant - [id number] INDICATIONS: RUQ pain COMPARISON: Prior CT: 06/12/18. [...] PM EST) Gold Hold Sample in lab. [facility] Blood specimen (specimen) Venous Draw / Unknown 06/16/2018 4:05 PM EST 06/16/2018 4:20 PM EST Giovanna Arriola MD CHEMISTRY ORDERAB LES Performing Organization Address City/[facility]/ZIP Co de Phone Number [facility] [place] [address] * Blue Tube HOLD (06/16/2018 4:05 PM EST) [facility] Signature Blue Hold Sample in lab. [facility] Blood specimen (specimen) Venous Draw / Unknown 06/16/2018 4:05 PM EST 06/16/2018 4:20 PM EST Giovanna Arriola MD HEMATOLOGY ORDERA BLES Performing Organization Address City/[facility]/ZIP Co de Phone Number [facility] [address] * Differential, Automated (06/16/2018 4:05 PM EST) Neutrophil % 63.5 % [facility] Neutrophil Absolute 4.68 1.70 - 6.10 x10(3)/[facility] LABORATORY Lymph % 24.5 % [facility] Lymphocytes Abs 1.8 0.9 - 3.2 x10(3)/[facility] Monocyte % 7.3 % [facility] Monocyte Abs 0.5 0.3 - 0.9 x10(3)/[facility] Eos % 3.3 % [facility] Eosinophils Abs 0.2 0.0 - 0.4 x10(3)/[facility] Basophil % 1.0 % [facility] Baso Absolute 0.1 0.0 - 0.1 x10(3)/[facility] LABORATORY Immature Gran % 0.40 % [facility] Comment: Immature granulocytes(IG's)percentage and absolute count will include metamyelocytes, myelocytes, and promyelocytes. Blood smears from CBCs yielding IG's will be scanned manually for concordance. If this scan disagrees with the automated IG or if promyelocytes are noted, a manual differential will be performed. Immature Gran Absolute 0.03 0.00 - 0.04 x10(3)/[facility] Blood specimen (specimen) 06/16/2018 4:05 PM EST 06/16/2018 4:20 PM EST Narrative Resulting Agency Comment Spec In Lab Giovanna Arriola MD HEMATOLOGY ORDERA BLES Performing Organization Address City/State/[facility] Co de Phone Number [facility] [place] [address] * Hemogram (06/16/2018 4:05 PM EST) White Blood Cell 7.4 4.0 - 9.5 x10(3)/[facility] LAB[facility]ATORY Red Blood Cell 5.45 4.58 - 5.54 x10(6)/[facility] Hemoglobin 16.5 13.7 - 16.5 gm/dL [facility] Hematocrit 47.0 40.5 - 48.5 % [facility] Mean Cell Volume 86.2 82.9 - 93.1 fL [facility] Mean Cell Hemoglobin 30.3 27.5 - 32.1 pg [facility] Mean Cell Hemoglobin Concentration 35.1 32.0 - 35.7 gm/dL [facility] Platelet 278 145 - 357 x10(3)/[facility]ORATORY RDW Standard Deviation 40.4 36.0 - 45.0 fL [facility] RDW coefficient of variation 13.1 11.4 - 13.8 % [facility] Mean Platelet Volume 9.7 7.6 - 12.9 fL [facility] NRBC% auto 0.0 % [facility] NRBC Absolute 0.000 0.000 - 0.000 x10(3)/mcL [facility] Blood specimen (specimen) 06/16/2018 4:05 PM EST 06/16/2018 4:20 PM EST Narrative Resulting Agency Comment Spec In Lab Giovanna Arriola MD HEMATOLOGY ORDERA BLES Performing Organization Address [facility] Co de Phone Number [facility] [place] [address] * Lipase (06/16/2018 4:05 PM EST) Lipase 36 0 - 60 unit/L [facility] Blood specimen (specimen) 06/16/2018 4:05 PM EST 06/16/2018 4:20 PM EST Narrative Resulting Agency Comment Spec In Lab Nick Mendes MD CHEMISTRY ORDERAB LES Performing Organization Address [facility] Co de Phone Number [facility] [place] [address] * (ABNORMAL) Comprehensive metabolic panel (non-fasting) (06/16/2018 4:05 PM EST) Glucose 93 65 - 199 mg/dL [facility] Comment:Diabetes: >=200 mg/d L plus symptoms Blood Urea Nitrogen 17 10 - 20 mg/dL [facility] Creatinine 1.24 0.80 - 1.50 mg/dL [facility] Sodium 139 135 - 145 mmol/L [facility] Potassium Not Perf 3.5 - 5.0 [facility] Comment: called 06/16/18 17:05 to Carmen Ferrell Please note: ??Patients with WBC >100,000 may have falsely elevated Potassium levels. ??For accurate Potassium quantification in these patients send serum separator tube (gold top) for subsequent determinations. ??Contact the Clinical Chemistry Laboratory if there are any questions. Chloride 99 98 - 107 mmol/L [facility] Carbon Dioxide 28 22 - 31 mmol/L [facility] Anion Gap 12 5 - 15 mmol/L [facility] Calcium 9.3 8.5 - 10.5 mg/dL [facility] Protein, Total 7.6 6.1 - 8.0 gm/dL [facility] Albumin 4.0 3.2 - 5.2 gm/dL [facility] Aspartate Aminotransferase Not Perf 0 - 39 [facility] Comment:called 06/16/18 17:0 5 to Carmen Ferrell Alanine Aminotransferase Not Perf 0 - 55 [facility] Comment:called 06/16/18 17:0 5 to Carmen Ferrell Alkaline Phosphatase 64 40 - 120 unit/L [facility] [...] of body mass or the acutely ill. [email or web address] [place] eGFR 68 >=60 mL/min/1. 73 m?? [facility] Comment: The eGFR was calculated using the CKD-EPI equation. As with all creatinine based estimates of kidney function, eGFR values calculated with the CKD-EPI equation are not accurate in patients with acute kidney failure, extremes of body mass or the acutely ill. [email or web address] [place] Blood specimen (specimen) 06/16/2018 4:05 PM EST 06/16/2018 4:20 PM EST Narrative Resulting Agency Comment Spec In Lab Nick Mendes MD CHEMISTRY [place] [address] documented in this encounter Visit Diagnoses Not [...] Laura 06/17/18 at 1030, Until Discontinued, Routine Given 06/18/2018 [...] Procedural area)1644 (SEP Unhold - Provider: Admin Adt)181 (Given - Provider: Tomasa Crawford RN) 0742 (Given - Provider: Sandra Ortiz RN) levothyroxine (SYNTHROID) tablet 100 mcg 100 mcg, Oral, EVERY MORNING, First dose on Laura 06/17/18 at 0700, Until Discontinued, Routine 06 (Given - Provider: Ozzy Mccormick RN)151 (SEP Hold - Provider: Admin Adt - Reason: Transfer to a Procedural area)164 ([facility] Unhold - Provider: Admin Adt) 0742 (Given - Provider: Sandra Ortiz RN) magnesium oxide (MAG-OX) tablet 400 mg 400 mg, Oral, 2 TIMES DAILY, First dose on Thu06/16/18 at 2100, Until Discontinued, Routine 2200 (Given - Provider: Ozzy Mccormick RN) 0844 (Given - Provider: Tomasa Crawford RN)151 ([facility] Hold - Provider: Admin Adt - Reason: Transfer to a Procedural area)164 ([facility] Unhold - Provider: Admin Adt)2030 [...] 0625 (Given - Provider: Ozzy Mccormick RN)1517 ([facility] Hold - Provider: Admin Adt - Reason: Transfer to a Procedural area)164 ([facility] Unhold - Provider: Admin Adt)181 (Given - Provider: Tomasa Crawford RN) 0743 [...] Indication for (Active or Suspected): Urinary Tract/Pyelonephritis 184 (Given - Provider: Halima Contreras RN) 0845 [...] Ortiz RN)0503 (Given - Provider: Maris Tavarez V, RN) documented in this encounter Care Teams Television Camera Operator Relationship Specialty Start Date End Date Urbano Denis DO [address] [place] [address] PCP - General 09/03/12 03/17/22 Ruchi Valles RN Nurse Clinic Transplant Surgery 07/30/15 documented as of this encounter
--- OUTSIDE RECORDS SUMMARY | 2024-04-04 14:03 | XMS_ITS | Encounter Summary ---
[place] [address] Care Team Providers Care Polysilicon Preparation Worker Name Role Phone AdeelUrbano toscano Primary Care Provider [phone] Reason for Visit * Reason Onset Date Comments Medication Refill 12/04/2017 Encounter Details Date Type Department Care Team (Late st Contact Info) Description 12/04/2017 Ref[place] [address] Sonia Mota RN S/P R TKA 11/25/17 [...] Patient aware medication has been sent to [facility] [place] [place] pharmacy and that they will be contacting him to verify demographics before mailing it out. * Telephone Encounter - Sonia Mota RN - 12/04/2017 10:18 AM EDT Narcotic pain medication refill request Person calling for request: Cody Gomez Keniamarialuisaneri Mailing address: [address] [place] [address] [place] [address] Surgeon: Dr. Dale Case: right total knee [...] is requesting the prescription be sent to [facility] [place] [place] pharmacy and then have the medication mailed. Last appointment: 11/25/2017 Future appointment: 01/04/2018 Last narcotic query: 12/04/2017 documented in this encounter Plan of Treatment Upcoming Encounters Date Type Department Care Team (Late st Contact Info) Description 04/08/2024 1:40 PM EDT Office Visit Cardiology at [address] [phone] Jay Urban MD [facility] [place] [address] 04/15/2024 10:00 AM EDT Hospital Encounter [place] [address] Arrived documented as of this encounter Goals Goal Patient Goal Type Associated Problems Recent Progress Patient-Stated? Author DH Deland Medication Compliance and Understanding Patient Facing Action [...] means documented in this encounter Care Teams Polysilicon Preparation Worker Relationship Specialty Start Date End Date Urbano Denis DO [address] [place] [address] PCP - General 09/03/12 03/17/22 Ruchi Valles RN Nurse Clinic Transplant Surgery 07/30/15 documented as of this encounter
--- OUTSIDE RECORDS SUMMARY | 2024-04-04 14:03 | XMS_ITS | Encounter Summary ---
Author Organization [facility] [place] [address] Care Team Providers Care Evp Sales Name Role Phone AdeelUrbano boland Primary Care Provider Reason for Visit * Reason Comments Medication Refill Encounter Details Date Type Department Care Team (Late st Contact Info) Description 12/11/2017 Refill [place] [id number] Tal Eagle MD [facility] [address] Social History Tobacco Use Types Packs/Day Years [...] PM EDT Office Visit Cardiology at [address] [phone] Jay Urban MD [facility] [place] [address] 04/15/2024 10:00 AM EDT Hospital Encounter [place] [address] Arrived documented as of this encounter Goals [...] on filedocumented in this encounter Care Teams Evp Sales Relationship Specialty Start Date End Date Urbano Denis DO [address] [place] [address] [address] [place] [address] PCP - General 09/03/12 03/17/22 Ruchi Valles RN Nurse Clinic Transplant Surgery 07/30/15 documented as of this encounter
--- OUTSIDE RECORDS SUMMARY | 2024-04-04 14:03 | XMS_ITS | Encounter Summary ---
Author Organization [facility] Address [facility] [place] [address] Care Team Providers Care Hha Name Role Phone Adeel Urbano KIRBY Primary Care Provider Encounter Details Date Type Department Care Team (Latest Contact Info) Description 01/04/2018 11:58 AM EDT - 01/04/2018 11:59 PM EDT Hospital Encounter XRay at [address] [place] [address] Breezy Dale MD [facility] [place] [address] Pain of right lower extremity; Debility; Primary [...] PM EDT Office Visit Cardiology at [address] [place] [address] Jay Urban MD [facility] [address] 04/15/2024 10:00 AM EDT Hospital Encounter Non[place] [address] Arrived documented as of this encounter Goals [...] * XR Knee Standing Alignment AP Lat [place] Right (01/04/2018 12:15 PM EDT) Anatomical Region [...] leg documented in this encounter Care Teams Hha Relationship Specialty Start Date End Date Urbano Denis DO [address] [place] [address] PCP - General 09/03/12 03/17/22 Ruchi Valles RN Nurse Clinic Transplant Surgery 07/30/15 documented as of this encounter
--- OUTSIDE RECORDS SUMMARY | 2024-04-04 14:03 | XMS_ITS | Encounter Summary ---
Author Organization [facility] [place] [address] Care Team Providers Care Piano Machine Operator Name Role Phone AdeelUrbano Primary Care Provider [phone] Reason for Visit * Auth/Cert Specialty Diagnoses / Procedures Referred By Humberto t Referred To Contact Diagnoses Presence of right artificial knee joint Osteoarthritis of the knee Procedures PRO TOTAL KNEE ARTHROPLASTY TOTAL KNEE ARTHROPLASTY (WRVU 20.72) MODIFIER, ATTUNE CURVED FIXED PLATFORM, DEPUY Referral ID Status Reason Start Date Expiration Date Visits Re quested Visits Authorized [id number] 1 1 Encounter Details Date Type Department Care Team (Latest Contact Info) Description 11/25/2017 9:14 AM EDT - 11/26/2017 3:14 PM EDT Hospital [place] [address] Breezy Dale MD [facility] [place] [address] Pain of right lower extremity; Debility; Primary [...] Cody Bolden Patient Age: 67 y.o. Language: Indonesian Race: White Ethnicity: Not nor Admit date: 11/25/2017 Discharge date and time: 11/26/2017 Attending Physician: Breezy Dale MD Discharge Physician: Breezy Dale MD Follow-up Recommendations for Providers: See discharge instructions for additional details. Future Appointments Date Time Provider Department Center 01/04/2018 12:30 PM [facility] DX ROOM 6 Xray [facility] 01/04/2018 1:30 PM Franko Hartley PA [facility] [address] [place] [address] CLIN Inpatient Provider Contact Information: Breezy Dale MD Orthopedics: [phone] After hours and weekends, call [facility] Vice President [employer]idential [employer], , and have the Orthopedic resident paged. [...] Vitamin D deficiency ??? 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 technician terminal and repeater current use of immunosuppressive drug ??? CAH [...] Primary * Anmol De Leon MD - Resident-Sales Representative Advertising Procedure(s): RIGHT TOTAL KNEE ARTHROPLASTY MODIFIER, ATTUNE CURVED FIXED PLATFORM, ClairMailUY Intraoperative Findings: Arthritic changes in all three [...] bowel movement. You can also take an mvtv-hmp-nrekrnz medication, Miralax if needed to combat constipation. [...] as much as possible. Call your doctor ([phone]) if you develop: 1. Fever greater than 100.5 2. Severe nausea or vomiting 3. Increasing pain that is not controlled by pain medications 4. Increasing redness, swelling, or drainage from incisions 5. Change in sensation FOLLOW-UP APPOINTMENTS: 1. You will have follow-up appointments at [facility] as indicated below in Future Appointment and Orders. 2. You will need to have x-rays prior to your follow-up appointment on 01/04/2018. Please come to Radiology, desk 3T, 1 hour BEFORE that appointment for those x-rays. Future Appointments Date Time Provider Department Center 01/04/2018 12:30 PM [facility] DX ROOM 6 Xray [facility] Rad Clin 01/04/2018 1:30 PM Franko Hartley PA [facility] [address] [place] [address] If you have questions or concerns: Thursday through Thursday, 8 AM - 5 PM, please call Breezy Yang MD's office at . If it is after 5 PM, the weekend, or holidays, please call and ask to speak with theOrthopedic resident on-call. General Instructions None Future Appointments and Orders Future Appointments Provider Department Dept Phone 01/04/2018 1:30 PM Franko Hartley PA Orthopaedics at [place] [phone] Future Orders Complete By Expires Walker standard [EQ135 Custom] As directed Process Instructions: Scheduling Instructions: Comments: Cody Bolden [address] [facility] [phone] (home) [phone] (work) Telephone Information: Diagnosis:right total knee arthroplasty with Unsteady gait Patient's: Hgt: 5'10 Wgt: 230 VENDOR: [facility] Ordering: Front wheel walker Deliver to pt's hospital room #: Short Stay 17 Questions: Vendor Name/Contact information: [facility] Primary Care Provider: Urbano Denis DO [phone] Discharge References/Attachments None documented in this encounter [...] bowel movement. You can also take an cuet-yjf-ywiquyh medication, Miralax if needed to combat constipation. [...] as much as possible. Call your doctor ([phone]) if you develop: 1. Fever greater than 100.5 2. Severe nausea or vomiting 3. Increasing pain that is not controlled by pain medications 4. Increasing redness, swelling, or drainage from incisions 5. Change in sensation FOLLOW-UP APPOINTMENTS: 1. You will have follow-up appointments at [facility] as indicated below in Future Appointment and Orders. 2. You will need to have x-rays prior to your follow-up appointment on 01/04/2018. Please come to Radiology, desk 3T, 1 hour BEFORE that appointment for those x-rays. Future Appointments Date Time Provider Department Center 01/04/2018 12:30 PM [facility] DX ROOM 6 Xray [facility] 01/04/2018 1:30 PM Franko Hartley PA [facility] [place] CLIN If you have questions or concerns: [...] EDT Office of Care Management (OCM) / Calliope Player(CM) Providers have indicated that patient would benefit from use of walker. CM will have human resources technician send referral to Ortho Care Located @ [facility] Center [place], [place] For discharge home today from Short Stay unit. Aarti Appiah RN Case Manager Pager [phone] * Anmol De Leon - 11/26/2017 6:17 [...] XR Guy Giraldo MD Orthopaedic Surgery Pager [phone] documented in this encounter H&P Notes * [...] with outpatient services Alize Hardwick, PT Pager: [phone] Inpatient Physical Therapy [facility] AM-PAC 6 Clicks/stairs Basic Mobility Inpatient [...] Status right lower extremity Bed Mobility Assessment/Treatment Idgess-pz-Gsy Vader (Bed Mobility) independent Fje-vy-Qzuzgn Vader (Bed Mobility) independent Transfer Assessment/Treatment Vader (Sit-Stand Transfers) conditional independence Vader (Stand-Sit Transfers) conditional independence Iaz-Zcepk-Hnl Assistive Device (Transfers) rolling walker Vader (Toilet Transfers) conditional independence Assistive Device (Toilet Transfers) rolling walker Impairments (Transfers) ROM (range of motion) decreased;pain;strength decreased Gait Assessment/Treatment Vader (Gait) conditional independence Assistive Device (Gait) rolling walker Distance in Feet (Gait) >150ft Gait Pattern Analysis swing-through gait Impairments (Gait) pain;ROM (range of motion) decreased;strength decreased Comment (Gait) Pt demonstrates mild antalgic gait pattern, steady with use of walker Stairs Assessment/Treatment Number of Stairs (Stairs) 13 Handrail Location (Stairs) left side (ascending) Vader (Stairs) conditional independence Technique (Stairs) dbvz-qf-zsrh (ascending);tins-vj-oesf (descending) Impairments (Stairs) pain;ROM (range of motion) [...] Discharge Disposition: (P) home with assist Pager: [phone] ANATOLY VAZQUEZ OT 11/26/2017 Occupational Therapy Rehabilitation [...] Comment Pt independent with ADLS and 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 Patient uses cane when needed. Vision Assessment/Intervention Additional Documentation (WFL) Cognitive Assessment/Intervention Additional Documentation (WFL) Pain Scale/Rating Pain Assessment Scale Numbers (Numeric Rating Pain Scale) Pain Level 2 ROM (Range of Motion) Additional Documentation General Assessment (Group) General Range of Motion Detail WNL Bed Mobility Assessment/Treatment Xqybem-ty-Ruo Vader (Bed Mobility) independent Transfer Assessment/Treatment Bed-Chair Vader (Transfers) independent Chair-Bed Vader (Transfers) independent Htn-Eiiuu-Bdh Assistive Device (Transfers) rolling walker Vader (Sit-Stand Transfers) independent Vader (Stand-Sit Transfers) independent Ocs-Yewgk-Tuu Assistive Device (Transfers) rolling walker Gait Assessment/Treatment Vader (Gait) independent Assistive Device (Gait) rolling walker [...] Body Dressing Assessment/Training Position (LB Dressing) standing;sitting Vader Level (LB Dressing) conditional independence Clinical Impression [...] Dale MD - 11/25/2017 12:15 PM EDT [facility] Operative Note Patient Name: Cody Bolden : [id number] MR#: [id number] Case Date: 11/25/2017 Surgeon: Surgeon(s) and Role: * Breezy Dale MD - Primary * Anmol De Leon MD - Resident-Sales Representative Advertising Preoperative Diagnosis: Osteoarthritis right knee Postoperative Diagnosis: Same Procedure Performed: right Total Knee Arthroplasty (CPT 68312) Anesthesia: Spinal, Adductor Canal Block (performed in [...] spacer blocks were removed and the metal coating machine operator was placed on the medial [...] the remaining femoral cut. A large lamina feather shaper was placed in the notch. On the medial side we removed the remaining meniscus and then ressected posterior osteophyte. The pericapsular injection was then infiltrated into themedial and posterior structures making sure to aspirate before infiltrating. The lamina feather shaper was changed to view the lateral side. [...] Implant Name Type Inv. Item Serial No. Home Health Attendant Lot No. LRB No. Used Action CEMENT,BNE,SMARTSET,GHV,40G ([id number]) - [id number] IMPLANTS CEMENT,BNE,SMARTSET,GHV,40G ([id number]) [employer] [id number] Right 2 Implanted BASE,ATUN,TIB,FB,CMNT,SZ8 ([id number]) (AUTOREQ) - [id number] IMPLANTS BASE,ATUN,TIB,FB,CMNT,SZ8 ([id number]) (AUTOREQ) [employer] 360Content Development Manager - [id number] Right 1 Implanted CAESAR CAUSEY MDL,DOME,41MM ([id number]) (AUTOREQ) - [id number] IMPLANTS CAESAR CAUSEY MDL,DOME,41MM ([id number]) (AUTOREQ) [employer] Content Development Manager - 3527 [id number] Right 1 Implanted COMPO,ATTUNE,FEM,CR,SZ8,RT ([id number]) (AUTOREQ) - [id number] IMPLANTS COMPO,ATTUNE,FEM,CR,SZ8,RT ([id number]) (AUTOREQ) [employer] Content Development Manager - 3527 [id number] Right 1 Implanted INSER,ATTUNE,CR,FB,SZ8,5MM ([id number]) (AUTOREQ) - [id number] IMPLANTS INSER,ATTUNE,CR,FB,SZ8,5MM ([id number]) (AUTOREQ) [employer] Content Development Manager - 3527 [id number] Right 1 Implanted documented in this encounter Plan of Treatment Upcoming Encounters Date Type Department Care Team (Late st Contact Info) Description 04/08/2024 1:40 PM EDT Office Visit Cardiology at [address] [phone] Jay Urban MD [facility] [place] [address] 04/15/2024 10:00 AM EDT Hospital Encounter [place] [address] Arrived documented as of this encounter Goals [...] POCT GLUCOSE Routine 11/25/2017 10:27 AM EDT STRUCTURAL ENGINEERING DRAFTING OFFICER SCAN 11/25/2017 12:00 AM EDT EKG 12-LEAD Routine 11/04/2017 12:43 PM EDT Pain of right lower extremity Debility Primary osteoarthritis of right knee documented in this encounter Results * (ABNORMAL) POCT Glucose (11/26/2017 11:22 AM EDT) [facility] Glucose, POC 208(H) 65 - 199 mg/dL [facility] Comment: Supplemental ranges: <140 mg/dL before meals <180 mg/dL all other times of the day Blood specimen (specimen) 11/26/2017 11:22 AM EDT 11/26/2017 11:22 AM EDT Breezy Dale MD POINT OF CARE TEST ORDERABLES [facility] [place] [address] * POCT Glucose (11/26/2017 7:15 AM EDT) Pathologist [facility] Glucose, POC 176 65 - 199 mg/dL [facility] Comment: Supplemental ranges: <140 mg/dL before meals <180 mg/dL all other times of the day Blood specimen (specimen) 11/26/2017 7:15 AM EDT 11/26/2017 7:15 AM EDT Breezy Dale MD POINT OF CARE TEST ORDERABLES Performing Organization Address City/[facility]/ZIP Co de Phone Number [facility] [place] [address] * (ABNORMAL) Differential, Automated (11/26/2017 1:33 AM EDT) [facility] Neutrophil % 90.9 % [facility] Neutrophil Absolute 11.45(H) 1.70 - 6.10 x10(3)/mc L [facility] Lymph % 5.2 % [facility] Lymphocytes Abs 0.6(L) 0.9 - 3.2 x10(3)/mc L [facility] Monocyte % 3.0 % [facility] Monocyte Abs 0.4 0.3 - 0.9 x10(3)/mc L [facility] Eos % 0.2 % [facility] Eosinophils Abs 0.0 0.0 - 0.4 x10(3)/mc L [facility] Basophil % 0.3 % [facility] Baso Absolute 0.0 0.0 - 0.1 x10(3)/mc L [facility] Immature Gran % 0.40 % [facility] Comment: Immature granulocytes(IG's)percentage and absolute count will include metamyelocytes, myelocytes, and promyelocytes. Blood smears from CBCs yielding IG's will be scanned manually for concordance. If this scan disagrees with the automated IG or if promyelocytes are noted, a manual differential will be performed. Immature Gran Absolute 0.05(H) 0.00 - 0.04 x10(3)/[facility] Blood specimen (specimen) 11/26/2017 1:33 AM EDT 11/26/2017 1:37 AM EDT Narrative Resulting Agency Comment Spec In Lab Anmol De Leon MD HEMATOLOGY ORDERABLE S [facility] [place] [address] * (ABNORMAL) Hemogram (11/26/2017 1:33 AM EDT) White Blood Cell 12.6(H) 4.0 - 9.5 x10(3)/[facility] Red Blood Cell 4.90 4.58 - 5.54 x10(6)/[facility] Hemoglobin 15.1 13.7 - 16.5 gm/dL [facility] Hematocrit 42.8 40.5 - 48.5 % [facility] Mean Cell Volume 87.3 82.9 - 93.1 [facility] Mean Cell Hemoglobin 30.8 27.5 - 32.1 pg [facility] Mean Cell Hemoglobin Concentration 35.3 32.0 - 35.7 gm/dL [facility] Platelet 249 145 - 357 x10(3)/[facility] RDW Standard Deviation 42.6 36.0 - 45.0 [facility] RDW coefficient of variation 13.3 11.4 - 13.8 % [facility] Mean Platelet Volume 9.4 7.6 - 12.9 [facility] NRBC% auto 0.0 % [facility] NRBC Absolute 0.000 0.000 - 0.000 x10(3)/ L [facility] Blood specimen (specimen) 11/26/2017 1:33 AM EDT 11/26/2017 1:37 AM EDT Narrative Resulting Agency Comment Spec In Lab Anmol De Leon MD HEMATOLOGY ORDERABLE S [facility] [place] [address] * Basic Metabolic Panel (non-fasting) (11/26/2017 1:33 AM EDT) Glucose 192 65 - 199 mg/dL [facility] Comment:Diabetes: >=200 mg/d L plus symptoms Blood Urea Nitrogen 15 10 - 20 mg/dL [facility] Creatinine 1.17 0.80 - 1.50 mg/dL [facility] Sodium 139 135 - 145 mmol/L [facility] [...] mmol/L [facility] Carbon Dioxide 24 22 - 31 mmol/L [facility] Anion Gap 15 5 - 15 mmol/L [facility] Calcium 8.8 8.5 - 10.5 mg/dL [facility] Est Glomerular Filtration Rate >60 >=60 [facility] Comment: The reported eGFR should be multiplied by 1.2 for patients. The MDRD is not an appropriate measure of renal function for patients with body mass extremes or in patients with acute kidney failure. http://[employer]/DHnkdep http://[employer]/DHMCnkf Blood specimen (specimen) 11/26/2017 1:33 AM EDT 11/26/2017 1:37 AM EDT Narrative Resulting Agency Comment Spec In Lab Breezy Dale MD CHEMISTRY ORDERABLE S Performing Organization Address City/[facility]/ZIP Co de Phone Number [facility] [place] [address] * POCT Glucose (11/25/2017 10:04 PM EDT) Glucose, POC 192 65 - 199 mg/dL [facility] Comment: Supplemental ranges: <140 mg/dL before meals <180 mg/dL all other times of the day Blood specimen (specimen) 11/25/2017 10:04 PM EDT 11/25/2017 10:04 PM EDT Breezy Dale MD POINT OF CARE TEST ORDERABLES Performing Organization Address [facility]/ZIP Co de Phone Number [facility] [place] [address] * POCT Glucose (11/25/2017 7:06 PM EDT) Glucose, POC 116 65 - 199 mg/dL [facility] Comment: Supplemental ranges: <140 mg/dL before meals <180 mg/dL all other times of the day Blood specimen (specimen) 11/25/2017 7:06 PM EDT 11/25/2017 7:06 PM EDT Breezy Dale MD POINT OF CARE TEST ORDERABLES Performing Organization Address City/[facility]/ZIP Co de Phone Number [facility] [place] [address] * POCT Glucose (11/25/2017 3:36 PM EDT) Glucose, POC 167 65 - 199 mg/dL [facility] Comment: Supplemental ranges: <140 mg/dL before meals <180 mg/dL all other times of the day Blood specimen (specimen) 11/25/2017 3:36 PM EDT 11/25/2017 3:36 PM EDT Breezy Dale MD POINT OF CARE TEST ORDERABLES Performing Organization Address City/[facility]/ZIP Co de Phone Number [facility] [place] [address] * POCT Glucose (11/25/2017 1:05 PM EDT) Glucose, POC 146 65 - 199 mg/dL [facility] Comment: Supplemental ranges: <140 mg/dL before meals <180 mg/dL all other times of the day Blood specimen (specimen) 11/25/2017 1:05 PM EDT 11/25/2017 1:05 PM EDT Breezy Dale MD POINT OF CARE TEST ORDERABLES Performing Organization Address [facility] Co de Phone Number [facility] [place] [address] * POCT Glucose (11/25/2017 11:32 AM EDT) Glucose, POC 142 65 - 199 mg/dL [facility] Comment: Supplemental ranges: <140 mg/dL before meals <180 mg/dL all other times of the day Blood specimen (specimen) 11/25/2017 11:32 AM EDT 11/25/2017 11:32 AM EDT Breezy Dale MD POINT OF CARE TEST ORDERABLES Performing Organization Address City/[facility] Co de Phone Number [facility] [place] [address] * POCT Glucose (11/25/2017 10:27 AM EDT) Glucose, POC 141 65 - 199 mg/dL [facility] Comment: Supplemental ranges: <140 mg/dL before meals <180 mg/dL all other times of the day Blood specimen (specimen) 11/25/2017 10:27 AM EDT 11/25/2017 10:27 AM EDT Breezy Dale MD POINT OF CARE TEST ORDERABLES [facility] [place] [address] * SCAN DOC: STRUCTURAL ENGINEERING DRAFTING OFFICER (11/25/2017 12:00 AM EDT) Anatomical Region Laterality [...] (Bezet) 453 ms MUSE SYSTEM Calculated P [place] 44 degrees MUSE SYSTEM Calculated R [place] -59 degrees MUSE SYSTEM Calculated T [place] 2 degrees MUSE SYSTEM INTERPRETATION Sinus rhythm with Premature atrial complexes with Aberrant conduction Left anterior fascicular block Abnormal ECG When compared with ECG of 22-JUN-2016 20:24, No significant change was found Confirmed by Caleb GERBER Damien ([id number]) on 11/04/2017 2:05:54 PM MUSE SYSTEM 11/04/2017 12:4 3 PM EDT 11/04/2017 2:05 PM EDT Breezy Dale MD ECG ORDERABLES Performing Organization Address [facility] Co de Phone Number MUSE SYSTEM [...] Brenda Flynn RN)1205 (Given - Provider: Daksha Peralta, JADEN) ceFAZolin (ANCEF) 1g in dextrose 5% 50mL [...] Prophylaxis 1545 (New Bag - Provider: Shannan Garcia, JADEN)1615 (Stopped - Provider: Shannan Garcia RN)2315 (New Bag - Provider: Brenda Flynn, JADEN)2345 (Stopped - Provider: Brenda Flynn, JADEN) 0622 (New Bag - Provider: Brenda Flynn RN)0652 (Stopped - Provider: Daksha Peralta, JADEN) [...] Last dose on Thu11/26/17 at 2100, Routine 204 (Given - Provider: Brenda Flynn, JADEN) insulin [...] so., Routine 1620 (Given - Provider: Shannan Garcia, JADEN) 0727 (Given - Provider: Daksha Peralta, JADEN)1206 [...] Flynn RN) 0828 (Given - Provider: Daksha Peralta, JADEN) mycophenolate (CELLCEPT) capsule 250 mg 250 mg, Oral, 2 TIMES DAILY, First dose on Thu11/25/17 at 2000, Until Discontinued, DO NOT CRUSH OR OPEN Administer to patient on empty stomach (1 hour before or two hours after a meal)., Routine 2041 (Given - Provider: Brenda Flynn RN) 0622 (Given - Provider: Brenda Flynn, JADEN) pantoprazole (PROTONIX) tablet 20 mg 20 mg, [...] 2042 (Given - Provider: Brenda Flynn RN) 826 (Given - Provider: Daksha Peralta RN) potassium [...] Flynn RN) 0900 (Not Given - Provider: Dkasha Peralta RN - Reason: See comment - [...] OPEN, Routine 2040 (Given - Provider: Brenda Flynn, RN) tranexamic acid (CYKLOKAPRON) 1,463 mg in [...] Unit) 1308 (New Bag - Provider: Shannan Garcia RN)2006 (Stopped - Provider: Brenda Flynn, RN) PRN Medication Order 11/24/2017 11/25/2017 11/26/2017 [...] PRN, Starting on Thu11/25/17 at 1207, Until Alura 11/26/17 at 1714, Intra-Operative (Intra-Procedure), Routine 1207 [...] Garcia, JADEN)2042 (Given - Provider: Brenda Flynn, JADEN) 0121 (Given - Provider: Brenda Flynn, RN)0736 (Given - Provider: Olga Astorga RN) sodium chloride 0.9 % flush 5-20 mL 5-20 mL, Intravenous, EVERY 1 MIN PRN, Starting on Thu11/25/17 at 1847, Until Laura 11/26/17 at 1714, flush, Flush pertains to all indwelling lines. Flush per protocol found in the job aid using the link provided on this medication record., Recovery (Recovery-Hospital Unit), Routine Linked Groups Order Group 1: gabapentin (NEURONTIN) capsule 600 mgJump to med 600 mg, Oral, NIGHTLY, 2 doses, First dose on Thu11/25/17 at 2100, Last dose on Laura 11/26/17 at 2100, Routine Followed by gabapentin (NEURONTIN) [...] Unit) documented in this encounter Care Teams Piano Machine Operator Relationship Specialty Start Date End Date Urbano Denis DO [address] [place] [address] PCP - General 09/03/12 03/17/22 Ruchi Valles RN Nurse Clinic Transplant Surgery 07/30/15 documented as of this encounter
--- OUTSIDE RECORDS SUMMARY | 2024-04-04 14:03 | XMS_ITS | Encounter Summary ---
Author Organization [facility] [place] [address] Care Team Providers Care Cutter Aluminum Sheet Name Role Phone AdeelUrbano Primary Care Provider [phone] Reason for Visit * Auth/Cert Specialty Diagnoses / Procedures Referred By Humberto t Referred To Contact Diagnoses Presence of right artificial knee joint Osteoarthritis of the knee Procedures PRO TOTAL KNEE ARTHROPLASTY TOTAL KNEE ARTHROPLASTY (WRVU 20.72) MODIFIER, ATTUNE CURVED FIXED PLATFORM, DEPUY Referral ID Status Reason Start Date Expiration Date Visits Re quested Visits Authorized [id number] 1 1 Encounter Details Date Type Department Care Team (Late st Contact Info) Description 11/25/2017 10:29 AM EDT Anesthesia Event [place] [address] Mariangel Varela MD [facility] [place] [address] Anesthesia Record Procedure Summary Procedure Name Responsible [...] Varela MD - 11/25/2017 1:[address] [facility] Department of Anesthesiology Post-procedure Note Patient: Cody Bolden Procedure Summary Date Anesthesia Start Anesthesia Stop Room / Location 11/25/17 1029 [facility] OR 10 / [facility] MAIN OR Procedure Diagnosis Surgeon Responsible Provider TOTAL KNEE ARTHROPLASTY (WRVU 20.72) (Right Knee); MODIFIER, ATTUNE CURVED FIXED PLATFORM, DEPUY (Right Knee) (Osteoarthritis of the knee) Breezy Dale MD Sites, Brian D, MD All Anesthesia Providers: Anesthesiologist: Mariangel Varela MD METALLURGICAL ANALYST: Marcio Argueta CRNA Most Recent Vitals: 11/25/17 1315 BP: 167/77 Pulse: 60 Resp: 22 Temp: SpO2: (!) 88% Pain Patient Location: PACU/[facility] Level of Consciousness: Awake and Alert [...] w dextrose 2 ml Events/Notes Events: None Resident/METALLURGICAL ANALYST: MARCIO ARGUETA Second Resident/METALLURGICAL ANALYST: Fellow: Attending Physician: MARIANGEL VARELA ~~~~~~~~~~~~~~~~~~~~~~~~~~~~~~~~~~~~~~~~~~~~~~~~~~~~~~~~~~~~ * [...] Length: 10 cm Gauge: 21 Needle Type: [id number]-[id number] Medication injection made incrementally with aspirations. Nerve [...] Vitamin D deficiency ??? 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 ad terminal makeup operator current use of immunosuppressive drug ??? CAH [...] EXTREMITY performed by Que Amaro MD at [facility] OR ??? PRO REIMPLANT URETER, SINGLE URETER Left 05/20/2016 @URETERONEOCYSTOSTOMY ANASTOMOSIS OF SINGLE URETER TO BLADDER performed by Santosh Arredondo MD at [facility] OR ??? PRO REIMPLANT URETER, SINGLE URETER N/A 05/20/2016 @URETERONEOCYSTOSTOMY ANASTOMOSIS OF SINGLE URETER TO BLADDER performed by Que Amaro MD at [facility] OR ??? PRO TRANSPLANT, PREP CADAVER RENAL GRAFT N/A 09/16/2015 @PREPARATION CADAVERIC RENAL ALLOGRAFT performed by Franko Larkin MD at [facility] OR ??? PRO TRANSPLANTATION OF KIDNEY N/A 09/16/2015 @KIDNEY TRANSPLANT, WITHOUT RECIPIENT NEPHRECTOMY performed by Franko Larkin MD at [facility] OR Social History Substance Use Topics ??? [...] PM EDT Office Visit Cardiology at [address] [phone] Jay Urban MD [facility] [place] [address] 04/15/2024 10:00 AM EDT Hospital Encounter Non[place] [address] Arrived documented as of this encounter Goals Goal Patient Goal Type Associated Problems Recent Progress Patient-Stated? Author DH Williamson Medication Compliance and Understanding Patient Facing Action [...] w dextrose 2 ml Events/Notes Events: None Resident/METALLURGICAL ANALYST: MARCIO ARGUETA Second Resident/METALLURGICAL ANALYST: Fellow: Attending Physician: MARIANGEL VARELA ~~~~~~~~~~~~~~~~~~~~~~~~~~~~~~~~~~~~~~~~~~~~~~~~~~~~~~~~~~~~ ANESTHESIA [...] Length: 10 cm Gauge: 21 Needle Type: [id number]-kddqf Medication injection made incrementally with aspirations. Nerve infiltration solution through a needle Bupivicaine 0.5% 20 mL Additional Notes No complications or paresthesias. Patient tolerated the procedure well.Intermittent aspiration negative. Resident: Sterlign Resident: Fellow: JAVI BAKER Attending Physician: ERIC [...] Change 11/25/2017 12:00 PM EDT 1,463 mg/kg/hr 68717.4 mL/hr New Bag 11/25/2017 10:48 AM EDT 1,463 mg documented in this encounter Care Teams Cutter Aluminum Sheet Relationship Specialty Start Date End Date Urbano Denis DO [address] [place] [address] PCP - General 09/03/12 03/17/22 Ruchi Valles RN Nurse Clinic Transplant Surgery 07/30/15 documented as of this encounter
--- OUTSIDE RECORDS SUMMARY | 2024-04-04 14:04 | XMS_ITS | Encounter Summary ---
Author Organization [facility] [place] [address] Care Team Providers Care Engine Repairer Service Name Role Phone Urbano Denis DO Primary Care Provider Encounter Details Date Type Department Care Team (Late st Contact Info) Description 11/04/2017 12:20 PM EDT Clinical [place] [phone] Social History Tobacco Use Types Packs/Day Years [...] and EKG. Special medication instructions: Plavix per . Procedure date: 11-25-[address] Dale documented in this encounter Plan of Treatment Upcoming Encounters Date Type Department Care Team (Late st Contact Info) Description 04/08/2024 1:40 PM EDT Office Visit Cardiology at [address] [phone] Jay Urban MD [facility] [place] [address] 04/15/2024 10:00 AM EDT Hospital Encounter Non-Invasive [place] [phone] Arrived documented as of this encounter Goals [...] on filedocumented in this encounter Care Teams Engine Repairer Service Relationship Specialty Start Date End Date Urbano Denis DO [address] [place] [address] PCP - General 09/03/12 03/17/22 Ruchi Valles RN Nurse Clinic Transplant Surgery 07/30/15 documented as of this encounter
--- OUTSIDE RECORDS SUMMARY | 2024-04-04 14:04 | XMS_ITS | Encounter Summary ---
Author Organization [facility] [place] [address] Care Team Providers Care Literacy Coach Name Role Phone AdeelUrbano boland Primary Care Provider Reason for Visit * Reason Comments Medication Refill Encounter Details Date Type Department Care Team (Late st Contact Info) Description 08/19/2017 Refill Solid [place] [phone] Tal Eagle MD [facility] [place] [address] Social History Tobacco Use Types Packs/Day Years [...] PM EDT Office Visit Cardiology at [address] [phone] Jay Urban MD [facility] [place] [address] 04/15/2024 10:00 AM EDT Hospital Encounter Non-[place] [address] Arrived documented as of this encounter Goals [...] on filedocumented in this encounter Care Teams Literacy Coach Relationship Specialty Start Date End Date Urbano Denis DO [address] [place] [address] [address] [place] [address] PCP - General 09/03/12 03/17/22 Ruchi Valles RN Nurse Clinic Transplant Surgery 07/30/15 documented as of this encounter
--- OUTSIDE RECORDS SUMMARY | 2024-04-04 14:04 | XMS_ITS | Encounter Summary ---
Author Organization [facility] [place] [address] Care Team Providers Care Survey Technician Name Role Phone Urbano Denis DO Primary Care Provider [phone] Reason for Referral * Physical Therapy (Routine) - Specialty Diagnoses / Procedures Referred By Humberto flor Referred To Contact Physical Therapy Diagnoses Primary osteoarthritis of right knee Breezy Dale MD [facility] [place] [address] Referral ID Status Reason Start Date Expiration Date V isits Requested Visits Authorized [id number] Evaluate and Treat 11/04/2017 05/03/2018 12 12 Reason for Visit * Reason Comments Pre-op Exam Right TKA Encounter Details Date Type Department Care Team (Latest Contact Info) Description 11/04/2017 2:00 PM EDT [place] [address] Orlando Stafford MD [facility] [place] [address] Preop examination; Primary osteoarthritis of right knee; [...] Family history: No colon cancer, dad of [place] young age. Mother alive at 98. Review [...] PM EDT Office Visit Cardiology at [address] [phone] Jay Urban MD [facility] [place] [address] 04/15/2024 10:00 AM EDT Hospital Encounter Non-[place] [address] Arrived Scheduled Referrals Name Type Priority Associated Diagnoses Orde r Schedule Referral to Physical Therapy Outpatient Referral Routine Primary osteoarthritis of right knee Ordered: 11/04/2017 documented as of this encounter Goals Goal Patient Goal Type Associated Problems Recent Progress Patient-Stated? Author [facility] Medication Compliance and Understanding Patient Facing Action Plan On track( 017 10:41 AM EDT) Selena Scott, [facility] Note: Patient Goal: Clear hepatitis C Timeframe to meet goal: within 12 weeks of therapy documented as of this encounter Visit Diagnoses Diagnosis Preop examination Preoperative examination, unspecified Primary osteoarthritis of right knee Primary localized osteoarthrosis, lower leg H/O kidney transplant Kidney replaced by transplant Personal history of immunosuppressive therapy documented in this encounter Care Teams Survey Technician Relationship Specialty Start Date End Date Urbano Denis DO [address] [place] [address] [address] [facility] [address] [place] [address] PCP - General 09/03/12 03/17/22 Ruchi Valles RN Nurse Clinic Transplant Surgery 07/30/15 documented as of this encounter
--- OUTSIDE RECORDS SUMMARY | 2024-04-04 14:04 | XMS_ITS | Encounter Summary ---
Author Organization [facility] [place] [address] Care Team Providers Care Administrative Operations Coordinator Name Role Phone Urbano Denis DO Primary Care Provider [phone] Encounter Details Date Type Department Care Team (Latest Contact Info) Description 2017 8:54 PM EST - 2017 11:59 PM EST [place] [address] Discharge Disposition: Home Social History Tobacco Use [...] PM EDT Office Visit Cardiology at [address] [phone] Jay Urban MD [facility] [place] [address] 04/15/2024 10:00 AM EDT Hospital Encounter Non-Invasive [place] [phone] Arrived documented as of this encounter Goals Goal Patient Goal Type Associated Problems Recent Progress Patient-Stated? Author DH Home Medication Compliance and Understanding Patient Facing Action Plan On track( 017 10:41 AM EDT) No Selena Cisneros, [facility] Note: Patient Goal: Clear hepatitis C Timeframe to meet goal: within 12 weeks of therapy documented as of this encounter Procedures Procedure Name Priority Date/Time Associated Diagnosis Comments TACROLIMUS LEVEL Routine 2017 3:40 PM EST documented in this encounter Results * Tacrolimus level (2017 3:40 PM EST) Tacrolimus 6.2 ng/mL [facility] Comment: Trough therapeutic: ??5-15 ng/mL Performed by ultra-performance liquid chromatography tandem mass spectrometry (UPLCMS/MS). This test was developed and its performance characteristics determined by [facility]. It has not been cleared or [...] CHEMISTRY ORDERAB LES [facility] [place] [address] documented in this encounter Visit Diagnoses Not on filedocumented in this encounter Care Teams Administrative Operations Coordinator Relationship Specialty Start Date End Date Urbano Denis DO [address] [place] [address] PCP - General 09/03/12 03/17/22 Ruchi Valles RN Nurse Clinic Transplant Surgery 07/30/15 documented as of this encounter
--- OUTSIDE RECORDS SUMMARY | 2024-04-04 14:04 | XMS_ITS | Encounter Summary ---
Author Organization [facility] [place] [address] Care Team Providers Care Director Of Materials Name Role Phone Adeel Urbano KIRBY Primary Care Provider Reason for Visit * Reason Comments Medication Refill Encounter Details Date Type Department Care Team (Late st Contact Info) Description 07/30/2017 Refill [place] [phone] Que Amaro MD [facility] [place] [address] Social History Tobacco Use Types Packs/Day Years [...] PM EDT Office Visit Cardiology at [address] [phone] Jay Urban MD [facility] [place] [address] 04/15/2024 10:00 AM EDT Hospital Encounter Non-Invasive [place] [phone] Arrived documented as of this encounter Goals [...] in this encounter Care Teams Director Of Materials Relationship Specialty Start Date End Date Urbano Denis DO [address] [place] [address] [address] [facility] [address] [place] [address] PCP - General 09/03/12 03/17/22 Ruchi Valles RN Nurse Clinic Transplant Surgery 07/30/15 documented as of this encounter
--- OUTSIDE RECORDS SUMMARY | 2024-04-04 14:04 | XMS_ITS | Encounter Summary ---
Author Organization [facility] Address [facility] [place] [address] Care Team Providers Care Breakfast Host Name Role Phone AdeelUrbano Primary Care Provider [phone] Reason for Visit * Reason Comments Knee Pain right Encounter Details Date Type Department Care Team (Latest Contact Info) Description 11/19/2017 12:10 PM EDT Office [place] [address] Breezy Arauz MD [facility] DR [place] [address] Primary osteoarthritis of right knee; Chronic pain [...] in this encounter Progress Notes * Breezy Arauz MD - 11/19/2017 12:10 PM EDT [...] hepatitis) K73.2 ??? Prophylactic immunotherapy Z29.8 ??? residential current use of immunosuppressive drug Z79.899 ??? [...] 1.39). Blood Type: AB Pos Questionnaire Response [facility] Surgical Preop Visit 11/19/2017 PROMIS-10 General Health [...] evaluated by Dr. Orlando Stafford, our Orthopaedic supervisor transferring and boxing, to help with perioperative optimization and he [...] MD, MS Chief, Division of Adult Reconstructive Regional EconomistCotton Classer Aide of Orthopaedics Department of Orthopaedics [place] [phone] [email or web address] documented in this encounter Plan of Treatment Upcoming Encounters Date Type Department Care Team (Late st Contact Info) Description 04/08/2024 1:40 PM EDT Office Visit Cardiology at [address] [phone] [place] [address] 04/15/2024 10:00 AM EDT Hospital Encounter Non-Invasive Cardiology Lab [place] [phone] Arrived documented as of this encounter Goals [...] knee documented in this encounter Care Teams Breakfast Host Relationship Specialty Start Date End Date Urbano Denis DO [address] [place] [address] [address] [place] [address] PCP - General 09/03/12 03/17/22 Ruchi Valles RN Nurse Clinic Transplant Surgery 07/30/15 documented as of this encounter
--- OUTSIDE RECORDS SUMMARY | 2024-04-04 14:04 | XMS_ITS | Encounter Summary ---
Author Organization [facility] [place] [address] Care Team Providers Care Information Systems Architect Name Role Phone Adeel Urbano KIRBY Primary Care Provider [phone] Reason for Visit * Auth/Cert Specialty Diagnoses / Procedures Referred By Humberto t Referred To Contact Diagnoses Presence of right artificial knee joint Osteoarthritis of the knee Procedures PRO TOTAL KNEE ARTHROPLASTY TOTAL KNEE ARTHROPLASTY (WRVU 20.72) MODIFIER, ATTUNE CURVED FIXED PLATFORM, DEPUY Referral ID Status Reason Start Date Expiration Date Visits Re quested Visits Authorized [id number] 1 1 Encounter Details Date Type Department Care Team (Late st Contact Info) Description 11/25/2017 11:16 AM EDT - 11/25/2017 1:39 PM EDT Surgery [place] [address] Breezy Dale MD [facility] DR ORTHOPAED[place] [address] TOTAL KNEE ARTHROPLASTY (WRVU 19.6) Social History [...] Cody Bolden Patient Age: 67 y.o. Language: Macedonian Race: White Ethnicity: Not nor Admit date: 11/25/2017 Discharge date and time: 11/26/2017 Attending Physician: Breezy Dale MD Discharge Physician: Breezy Dale MD Follow-up Recommendations for Providers: See discharge instructions for additional details. Future Appointments Date Time Provider Department Center 01/04/2018 12:30 PM [facility] DX ROOM 6 Xray [facility] 01/04/2018 1:30 PM Franko Hartley PA [facility] [place] [facility] Inpatient Provider Contact Information: Breezy Dale MD Orthopedics: [phone] After hours and weekends, call [facility] Skin Care Instructor, , and have the Orthopedic resident paged. [...] Vitamin D deficiency ??? 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 watermaster current use of immunosuppressive drug ??? CAH [...] Primary * Anmol De Leon MD - Resident-Business Insight And Analytics Manager Procedure(s): RIGHT TOTAL KNEE ARTHROPLASTY MODIFIER, ATTUNE CURVED FIXED PLATFORM, ShiconUY Intraoperative Findings: Arthritic changes in all three [...] bowel movement. You can also take an jbfa-pdz-uhyycgg medication, Miralax if needed to combat constipation. [...] as much as possible. Call your doctor ([phone]) if you develop: 1. Fever greater than 100.5 2. Severe nausea or vomiting 3. Increasing pain that is not controlled by pain medications 4. Increasing redness, swelling, or drainage from incisions 5. Change in sensation FOLLOW-UP APPOINTMENTS: 1. You will have follow-up appointments at [facility] as indicated below in Future Appointment and Orders. 2. You will need to have x-rays prior to your follow-up appointment on 01/04/2018. Please come to Radiology, desk 3T, 1 hour BEFORE that appointment for those x-rays. Future Appointments Date Time Provider Department Center 01/04/2018 12:30 PM [facility] DX ROOM 6 Xray [facility] 01/04/2018 1:30 PM Franko Hartley PA [facility] [address] [place] [address] If you have questions or concerns: Thursday through Thursday, 8 AM - 5 PM, please call Breezy Yang MD's office at . If it is after 5 PM, the weekend, or holidays, please call and ask to speak with theOrthopedic resident on-call. General Instructions None Future Appointments and Orders Future Appointments Provider Department Dept Phone 01/04/2018 1:30 PM Franko Hartley PA Orthopaed[facility] [phone] Future Orders Complete By Expires Walker standard [EQ135 Custom] As directed Process Instructions: Scheduling Instructions: Comments: Cody Bolden [address] [facility] [phone] (home) [phone] (work) Telephone Information: Diagnosis:right total knee arthroplasty with Unsteady gait Patient's: Hgt: 5'10 Wgt: 230 VENDOR: [facility] Ordering: Front wheel walker Deliver to pt's hospital room #: Short Stay 17 Questions: Vendor Name/Contact information: [facility] Primary Care Provider: Urbano Denis DO [phone] Discharge References/Attachments None documented in this encounter [...] bowel movement. You can also take an brso-lpm-egnzozz medication, Miralax if needed to combat constipation. [...] as much as possible. Call your doctor ([phone]) if you develop: 1. Fever greater than 100.5 2. Severe nausea or vomiting 3. Increasing pain that is not controlled by pain medications 4. Increasing redness, swelling, or drainage from incisions 5. Change in sensation FOLLOW-UP APPOINTMENTS: 1. You will have follow-up appointments at [facility] as indicated below in Future Appointment and Orders. 2. You will need to have x-rays prior to your follow-up appointment on 01/04/2018. Please come to Radiology, desk 3T, 1 hour BEFORE that appointment for those x-rays. Future Appointments Date Time Provider Department Center 01/04/2018 12:30 PM [facility] DX ROOM 6 Brenna [facility] 01/04/2018 1:30 PM Franko Hartley PA [facility] [address] [place] [address] CLIN If you have questions or concerns: [...] EDT Office of Care Management (OCM) / Chemical Preparer(CM) Providers have indicated that patient would benefit from use of walker. CM will have human resources operations manager send referral to Ortho Care Located @ [place], [place] For discharge home today from Short Stay unit. Aarti Appiah RN Case Manager Pager [phone] * Anmol De Leon - 11/26/2017 6:17 [...] XR Guy Giraldo MD Orthopaedic Surgery Pager [phone] documented in this encounter H&P Notes * [...] with outpatient services Alize Hardwick, PT Pager: [phone] Inpatient Physical Therapy [facility] AM-PAC 6 Clicks/stairs Basic Mobility Inpatient [...] hepatitis) K73.2 ??? Prophylactic immunotherapy Z29.8 ??? watermaster current use of immunosuppressive drug Z79.899 ??? [...] Status right lower extremity Bed Mobility Assessment/Treatment Idqzkv-tv-Oan [place] (Bed Mobility) independent Itj-bu-Afqyen [place] (Bed Mobility) independent Transfer Assessment/Treatment [place] (Sit-Stand Transfers) conditional independence [place] (Stand-Sit Transfers) conditional independence Qmu-Vgfrk-Ynf Assistive Device (Transfers) rolling walker [place] (Toilet Transfers) conditional independence Assistive Device (Toilet Transfers) rolling walker Impairments (Transfers) ROM (range of motion) decreased;pain;strength decreased Gait Assessment/Treatment [place] (Gait) conditional independence Assistive Device (Gait) rolling walker Distance in Feet (Gait) >150ft Gait Pattern Analysis swing-through gait Impairments (Gait) pain;ROM (range of motion) decreased;strength decreased Comment (Gait) Pt demonstrates mild antalgic gait pattern, steady with use of walker Stairs Assessment/Treatment Number of Stairs (Stairs) 13 Handrail Location (Stairs) left side (ascending) [place] (Stairs) conditional independence Technique (Stairs) ecxb-yu-uqia (ascending);ftco-sz-nrfp (descending) Impairments (Stairs) pain;ROM (range of motion) [...] Discharge Disposition: (P) home with assist Pager: [phone] ANATOLY VAZQUEZ, OT 11/26/2017 Occupational Therapy Rehabilitation [...] Comment 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 Patient uses cane when needed. Vision Assessment/Intervention Additional Documentation (WFL) Cognitive Assessment/Intervention Additional Documentation (WFL) Pain Scale/Rating Pain Assessment Scale Numbers (Numeric Rating Pain Scale) Pain Level 2 ROM (Range of Motion) Additional Documentation General Assessment (Group) General Range of Motion Detail WNL Bed Mobility Assessment/Treatment Tbwukk-rr-Ccm [place] (Bed Mobility) independent Transfer Assessment/Treatment Bed-Chair [place] (Transfers) independent Chair-Bed [place] (Transfers) independent Rkk-Mjjwh-Yph Assistive Device (Transfers) rolling walker [place] (Sit-Stand Transfers) independent [place] (Stand-Sit Transfers) independent Sml-Bosjj-Gqw Assistive Device (Transfers) rolling walker Gait Assessment/Treatment [place] (Gait) independent Assistive Device (Gait) rolling walker [...] Body Dressing Assessment/Training Position (LB Dressing) standing;sitting [place] Level (LB Dressing) conditional independence Clinical Impression [...] Dale MD - 11/25/2017 12:15 PM EDT [facility] Operative Note Patient Name: Cody Bolden : [id number] MR#: [id number] Case Date: 11/25/2017 Surgeon: Surgeon(s) and Role: * Breezy Dale MD - Primary * Anmlo De Leon MD - Resident-Business Insight And Analytics Manager Preoperative Diagnosis: Osteoarthritis right knee Postoperative Diagnosis: Same Procedure Performed: right Total Knee Arthroplasty (CPT 38647) Anesthesia: Spinal, Adductor Canal Block (performed in [...] spacer blocks were removed and the metal disaster director was placed on the medial side with [...] the remaining femoral cut. A large lamina conference service coordinator was placed in the notch. On the medial side we removed the remaining meniscus and then ressected posterior osteophyte. The pericapsular injection was then infiltrated into themedial and posterior structures making sure to aspirate before infiltrating. The lamina conference service coordinator was changed to view the lateral side. [...] Implant Name Type Inv. Item Serial No. Diesel Engine Engineer Lot No. LRB No. Used Action CEMENT,BNE,SMARTSET,GHV,40G ([id number]) - [id number] IMPLANTS CEMENT,BNE,SMARTSET,GHV,40G ([id number]) Depuy Oracle E Business Developer - [id number] Right 2 Implanted BASE,ATUN,TIB,FB,CMNT,SZ8 ([id number]) (AUTOREQ) - [id number] IMPLANTS BASE,ATUN,TIB,FB,CMNT,SZ8 ([id number]) (AUTOREQ) Depuy [employer] E Business Developer - [id number] Right 1 Implanted CAESAR CAUSEY MDL,DOME,41MM ([id number]) (AUTOREQ) - [id number] IMPLANTS CAESAR CAUSEY MDL,DOME,41MM ([id number]) (AUTOREQ) Depuy [employer] E Business Developer - [id number] Right 1 Implanted COMPO,ATTUNE,FEM,CR,SZ8,RT ([id number]) (AUTOREQ) - [id number] IMPLANTS COMPO,ATTUNE,FEM,CR,SZ8,RT ([id number]) (AUTOREQ) Depuy Oracle E Business Developer - [id number] Right 1 Implanted INSER,ATTUNE,CR,FB,SZ8,5MM ([id number]) (AUTOREQ) - [id number] IMPLANTS INSER,ATTUNE,CR,FB,SZ8,5MM ([id number]) (AUTOREQ) Depuy Oracle E Business Developer - [id number] Right 1 Implanted documented in this encounter Plan of Treatment Upcoming Encounters Date Type Department Care Team (Late st Contact Info) Description 04/08/2024 1:40 PM EDT Office Visit Cardiology at [address] [phone] Jay Urban MD [facility] [place] [address] 04/15/2024 10:00 AM EDT Hospital Encounter [place] [phone] Arrived documented as of this encounter Goals [...] POCT GLUCOSE Routine 11/25/2017 10:27 AM EDT ASSOCIATE TECHNICIAN SCAN 11/25/2017 12:00 AM EDT EKG 12-LEAD Routine 11/04/2017 12:43 PM EDT Pain of right lower extremity Debility Primary osteoarthritis of right knee documented in this encounter Results * (ABNORMAL) POCT Glucose (11/26/2017 11:22 AM EDT) [facility] Signature Glucose, POC 208(H) 65 - 199 mg/dL [facility] Comment: Supplemental ranges: <140 mg/dL before meals <180 mg/dL all other times of the day Blood specimen (specimen) 11/26/2017 11:22 AM EDT 11/26/2017 11:22 AM EDT Breezy Dale MD POINT OF CARE TEST ORDERABLES [facility] [place] [address] * POCT Glucose (11/26/2017 7:15 AM EDT) Glucose, POC 176 65 - 199 mg/dL [facility] Comment: Supplemental ranges: <140 mg/dL before meals <180 mg/dL all other times of the day Blood specimen (specimen) 11/26/2017 7:15 AM EDT 11/26/2017 7:15 AM EDT Breezy Dale MD POINT OF CARE TEST ORDERABLES [facility] [place] [address] * (ABNORMAL) Differential, Automated (11/26/2017 1:33 AM EDT) [facility] Neutrophil % 90.9 % [facility] Neutrophil Absolute 11.45(H) 1.70 - 6.10 x10(3)/mc L [facility] Lymph % 5.2 % [facility] Lymphocytes Abs 0.6(L) 0.9 - 3.2 x10(3)/mc L [facility] Monocyte % 3.0 % [facility] Monocyte Abs 0.4 0.3 - 0.9 x10(3)/mc L [facility] Eos % 0.2 % [facility] Eosinophils Abs 0.0 0.0 - 0.4 x10(3)/mc L [facility] Basophil % 0.3 % [facility] Baso Absolute [...] Absolute 0.05(H) 0.00 - 0.04 x10(3)/ L [facility] Blood specimen (specimen) 11/26/2017 1:33 AM EDT 11/26/2017 1:37 AM EDT Narrative Resulting Agency Comment Spec In Lab Anmol De Leon MD HEMATOLOGY ORDERABLE S [facility] [place] [address] * (ABNORMAL) Hemogram (11/26/2017 1:33 AM EDT) White Blood Cell 12.6(H) 4.0 - 9.5 x10(3)/[facility] Red Blood Cell 4.90 4.58 - 5.54 x10(6)/[facility] Hemoglobin 15.1 13.7 - 16.5 gm/dL [facility] Hematocrit 42.8 40.5 - 48.5 % [facility] Mean Cell Volume 87.3 82.9 - 93.1 fL [facility] Mean Cell Hemoglobin 30.8 27.5 - 32.1 pg [facility] Mean Cell Hemoglobin Concentration 35.3 32.0 - 35.7 gm/dL [facility] Platelet 249 145 - 357 x10(3)/[facility] RDW Standard Deviation 42.6 36.0 - 45.0 [facility] RDW coefficient of variation 13.3 11.4 - 13.8 % [facility] Mean Platelet Volume 9.4 7.6 - 12.9 [facility] NRBC% auto 0.0 % [facility] NRBC Absolute 0.000 0.000 - 0.000 x10(3)/ L [facility] Blood specimen (specimen) 11/26/2017 1:33 AM EDT 11/26/2017 1:37 AM EDT Narrative Resulting Agency Comment Spec In Lab Anmol De Leon MD HEMATOLOGY ORDERABLE S [facility] [place] [address] * Basic Metabolic Panel (non-fasting) (11/26/2017 1:33 [...] LABORATORY Est Glomerular Filtration Rate >60 >=60 [facility] Comment: The reported eGFR should be multiplied by 1.2 for patients. The MDRD is not an appropriate measure of renal function for patients with body mass extremes or in patients with acute kidney failure. http://Rocketrip.com/DHnkdep http://Rocketrip.com/DHMCnkf Blood specimen (specimen) 11/26/2017 1:33 AM EDT 11/26/2017 1:37 AM EDT Narrative Resulting Agency Comment Spec In Lab Breezy Dale MD CHEMISTRY ORDERABLE S [facility] [place] [address] * POCT Glucose (11/25/2017 10:04 PM EDT) Glucose, POC 192 65 - 199 mg/dL [facility] Comment: Supplemental ranges: <140 mg/dL before meals <180 mg/dL all other times of the day Blood specimen (specimen) 11/25/2017 10:04 PM EDT 11/25/2017 10:04 PM EDT Breezy Dale MD POINT OF CARE TEST ORDERABLES Performing Organization Address [facility] Co de Phone Number [facility] [place] [address] * POCT Glucose (11/25/2017 7:06 PM EDT) Glucose, POC 116 65 - 199 mg/dL [facility] Comment: Supplemental ranges: <140 mg/dL before meals <180 mg/dL all other times of the day Blood specimen (specimen) 11/25/2017 7:06 PM EDT 11/25/2017 7:06 PM EDT Breezy Dale MD POINT OF CARE TEST ORDERABLES Performing Organization Address [facility] Co de Phone Number [facility] [place] [address] * POCT Glucose (11/25/2017 3:36 PM EDT) Glucose, POC 167 65 - 199 mg/dL [facility] Comment: Supplemental ranges: <140 mg/dL before meals <180 mg/dL all other times of the day Blood specimen (specimen) 11/25/2017 3:36 PM EDT 11/25/2017 3:36 PM EDT Breezy Dale MD POINT OF CARE TEST ORDERABLES [facility] [place] [address] * POCT Glucose (11/25/2017 1:05 PM EDT) Glucose, POC 146 65 - 199 mg/dL [facility] Comment: Supplemental ranges: <140 mg/dL before meals <180 mg/dL all other times of the day Blood specimen (specimen) 11/25/2017 1:05 PM EDT 11/25/2017 1:05 PM EDT Breezy Dale MD POINT OF CARE TEST ORDERABLES [facility] [place] [address] * POCT Glucose (11/25/2017 11:32 AM EDT) Glucose, POC 142 65 - 199 mg/dL [facility] Comment: Supplemental ranges: <140 mg/dL before meals <180 mg/dL all other times of the day Blood specimen (specimen) 11/25/2017 11:32 AM EDT 11/25/2017 11:32 AM EDT Breezy Dale MD POINT OF CARE TEST ORDERABLES Performing Organization Address City/[facility]/ZIP Co de Phone Number [facility] [place] [address] * POCT Glucose (11/25/2017 10:27 AM EDT) Glucose, POC 141 65 - 199 mg/dL [facility] Comment: Supplemental ranges: <140 mg/dL before meals <180 mg/dL all other times of the day Blood specimen (specimen) 11/25/2017 10:27 AM EDT 11/25/2017 10:27 AM EDT Breezy Dale MD POINT OF CARE TEST ORDERABLES [facility] [place] [address] * SCAN DOC: ASSOCIATE TECHNICIAN (11/25/2017 12:00 AM EDT) Anatomical Region Laterality [...] (Bezet) 453 ms MUSE SYSTEM Calculated P Merr[place] 44 degrees MUSE SYSTEM Calculated R [place] -59 degrees MUSE SYSTEM Calculated T [place] 2 degrees MUSE SYSTEM INTERPRETATION Sinus rhythm [...] Thu11/25/17 at 1847, Until Thu11/26/17 at 1714, Nausea, May repeat times one [...] hours., Routine 1900 (Given - Provider: Daksha Peralta, JADEN - Comment: pt just arrived to [facility]) 0200 (Given - Provider: Brenda Flynn, JADEN)1205 (Given - Provider: Daksha Peralta, JADEN) ceFAZolin [...] Brenda Flynn, JADEN)2345 (Stopped - Provider: Brenda Flynn RN) 0622 (New Bag - Provider: Brenda Flynn, JADEN)0652 (Stopped - Provider: Daksha Peralta, JADEN) ceFAZolin [...] Discontinued, Routine 1900 (Given - Provider: Daksha Peralta RN - Comment: pt just arrived to [facility]) dexamethasone (DECADRON) tablet 4 mg (COMPLETED) 4 mg, Oral, DAILY, 2 doses, First dose on Thu11/25/17 at 1545, Last dose on Thu11/26/17 at 0900, Routine 1827 (Given - Provider: Shannan Garcia, RN) 0829 (Given - Provider: Daksha Peralta, RN) gabapentin (NEURONTIN) capsule 300 mg (COMPLETED) 300 [...] 2041 (Given - Provider: Brenda Flynn RN) 06 (Given - Provider: Brenda Flynn RN) pantoprazole [...] 2042 (Given - Provider: Brenda Flynn RN) 08 (Given - Provider: Daksha Peralta RN) potassium [...] 2041 (Given - Provider: Brenda Flynn, JADEN) 08 (Given - Provider: Daksha Peralta RN) sodium chloride 0.9 % flush 5 mL 5 mL, Intravenous, 2 TIMES DAILY, First dose on Thu11/25/17 at 2100, Until Discontinued, Recovery (Recovery-Hospital Unit), Routine 2042 (Given - Provider: Brenda Flynn RN) 0900 (Not Given - Provider: Daksha Peralta, JADEN - Reason: See comment - Comment: recently [...] Shannan Garcia RN)2006 (Stopped - Provider: Brenda Flynn RN) [...] Routine 1527 (Given - Provider: Shannan Garcia, RN)2042 (Given - Provider: Brenda Flynn, RN) 0121 [...] Unit) documented in this encounter Care Teams Information Systems Architect Relationship Specialty Start Date End Date Urbano Denis DO [address] [place] [address] PCP - General 09/03/12 03/17/22 Ruchi Valles RN Nurse Clinic Transplant Surgery 07/30/15 documented as of this encounter
--- OUTSIDE RECORDS SUMMARY | 2024-04-04 14:04 | XMS_ITS | Encounter Summary ---
Author Organization [facility] [place] [address] Care Team Providers Care Associate Loan Officer Name Role Phone AdeelUrbano toscano Primary Care Provider + [phone] Reason for Referral * Consultation (Routine) - Specialty Diagnoses / Procedures Referred By Humberto flor Referred To Contact Orthopaedics Diagnoses Osteoarthritis of right knee, unspecified osteoarthritis type Tal Eagle MD [facility] [place] [address] Breezy Dale MD [facility] [address] [place] [address] Referral ID Status Reason Start Date Expiration Date V isits Requested Visits Authorized [id number] Consult, Test & Treat 09/09/2017 09/09/2018 10 10 Reason for Visit * Reason Comments Kidney Transplant Follow-up Immunotherapy Encounter Details Date Type Department Care Team (Latest Contact Info) Description 09/09/2017 10:40 AM EST Office Visit [place] [address] Tal Eagle MD 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 Date: 09/09/2017 [...] for diabetics, every 5 for non diabetics [place] kidney ultrasound looking for renal cell CA, [...] from 09/09/2017 in Solid Organ Transplant at [place] Weight 104.1 kg (229 lb 6.4 oz) [...] edema. ? Labs/ Imaging: Results for ETHEL AKINS ( ) as of 09/20/2017 15:03 Ref. [...] UA Latest Ref Range: Clear Clear Spec [place] UA Latest Ref Range: 1.002 - 1.030 [...] treatment -ID following ?? RTC 12 months, v4suppniv labs documented in this encounter Plan of Treatment Upcoming Encounters Date Type Department Care Team (Late st Contact Info) Description 04/08/2024 1:40 PM EDT Office Visit Cardiology at [address] [address] Jay Urban MD [facility] [address] FLORES YAIMA [id number] 04/15/2024 10:00 AM EDT Hospital Encounter Non-Invasive Cardiology Lab [facility] [place] [address] Arrived Scheduled Referrals Name Type Priority Associated Diagnoses Orde r Schedule Referral to Orthopaedics Outpatient Referral Routine Kidney replaced by transplant longterm current use of immunosuppressive drug Osteoarthritis of right knee, unspecified osteoarthritis type Ordered: 09/09/2017 documented as of this encounter Goals Goal Patient Goal Type Associated Problems Recent Progress Patient-Stated? Author [facility] Medication Compliance and Understanding Patient Facing Action Plan On track( 017 10:41 AM EDT) Selena Scott, [facility] Note: Patient Goal: Clear hepatitis C Timeframe to meet goal: within 12 weeks of therapy documented as of this encounter Results * (ABNORMAL) Urinalysis with reflex Culture (09/09/2017 10:53 AM EST) Glucose, Urine Dipstick Negative Negative mg/dL [facility] Protein, Urine Dipstick 100(A) Negative mg/dL [facility] Bilirubin, [...] HOSPITAL LABORATORY Leukocytes, Urine Dipstick Negative Negative [facility] Appearance, Urine Dipstick Clear Clear [facility] Specific [place] Urine Automated 1.016 1.002 - 1.030 [facility] Color, Urine Dipstick Yellow Yellow [facility] Reflex to Culture No [facility] Urine specimen obtained by clean catch procedure (specimen) 09/09/2017 10:53 AM EST 09/09/2017 10:58 AM EST Narrative Resulting Agency Comment Spec In Lab Tal Eagle MD URINE ORDERABLES Performing Organization Address City/[facility] Co de Phone Number [facility] [place] [address] * (ABNORMAL) Protein/Creatinine Ratio, urine (09/09/2017 10:53 AM EST) Creatinine, Urine 84 mg/dL [facility] Protein, Urine 62(H) 0 - 12 mg/dL [facility] Protein / Creatinine Ratio, Urine 0.7 ratio [facility] Urine specimen (specimen) 09/09/2017 10:53 AM EST 09/09/2017 10:58 AM EST Narrative Resulting Agency Comment Spec In Lab Tal Eagle MD URINE ORDERABLES Performing Organization Address City/[facility] Co de Phone Number [facility] [place] [address] * Phosphorus, urine, random (09/09/2017 10:53 AM EST) Phosphorus, Urine 49.2 mg/dL [facility] Urine specimen (specimen) 09/09/2017 10:53 AM EST 09/09/2017 10:58 AM EST Narrative Resulting Agency Comment Spec In Lab Tal Eagle MD URINE ORDERABLES Performing Organization Address City/[facility]/ZIP Co de Phone Number [facility] [place] [address] * Calcium Creatinine Ratio, random urine (09/09/2017 10:53 AM EST) Calcium, Urine 7.9 mg/dL [facility] Creatinine, Urine 84 mg/dL [facility] Calcium / Creatinine Ratio, Urine 0.09 ratio [facility] Urine specimen (specimen) 09/09/2017 10:53 AM EST 09/09/2017 10:58 AM EST Narrative Resulting Agency Comment Spec In Lab Tal Eagle MD URINE ORDERABLES Performing Organization Address [facility]/ZIP Co de Phone Number [facility] [place] [address] * Gold Tube HOLD (09/09/2017 10:03 AM EST) Pathologist [facility] Gold Hold Sample in lab. [facility] Blood specimen (specimen) 09/09/2017 10:03 AM EST 09/09/2017 10:09 AM EST Tal Eagle MD CHEMISTRY ORDERAB LES Performing Organization Address [facility] Co de Phone Number [facility] [place] [address] * Lavender Tube HOLD (09/09/2017 10:03 AM EST) [facility] Lavender Hold Sample in lab. [facility] Blood specimen (specimen) 09/09/2017 10:03 AM EST 09/09/2017 10:09 AM EST Tal Eagle MD HEMATOLOGY ORDERA BLES Performing Organization Address City/[facility]/ZIP Co de Phone Number [facility] [place] [address] * (ABNORMAL) Vitamin D, 25-Hydroxy (09/09/2017 10:03 AM EST) Vitamin D Total 25 OH 16(L) 30 - 100 ng/mL [facility] Comment: Deficient <10 ng/mL Insufficient 10 to 29 ng/mL Sufficient 30 to 100 ng/mL Potential Intoxication >100 ng/mL According to the US National Osteoporosis Foundation, Vitamin D concentrations >30 ng/mL are sufficient to protect bone health. ??The National Kidney Foundation has similarly stated that patients with Vitamin D concentrations <30ng/mL should be considered to be insufficient or deficient. http://AppLearn/nkf-guidelines http://AppLearn/nejm-VitD The [employer] i[employer] Vitamin D Immunoassay detects both 25-OH Vitamin D2 and 25-OH Vitamin D3, but only a total Vitamin D concentration is reported. Blood specimen (specimen) 09/09/2017 10:03 AM EST 09/09/2017 2:08 PM EST Narrative Resulting Agency Comment Spec In Lab Tal Eagle MD CHEMISTRY ORDERAB LES Performing Organization Address City/[facility]/ZIP Co de Phone Number [facility] [place] [address] * Uric acid (09/09/2017 10:03 AM EST) Uric Acid 7.3 3.5 - 8.5 mg/dL [facility] Blood specimen (specimen) 09/09/2017 10:03 AM EST 09/09/2017 10:09 AM EST Narrative Resulting Agency Comment Spec In Lab Tal Eagle MD CHEMISTRY ORDERAB LES Performing Organization Address City/[facility]/ZIP Co de Phone Number [facility] [place] [address] * Tacrolimus level (09/09/2017 10:03 AM EST) Tacrolimus 5.5 ng/mL [facility] Comment: Trough therapeutic: ??5-15 ng/mL Performed by ultra-performance liquid chromatography tandem mass spectrometry (UPLCMS/MS). This test was developed and its performance characteristics determined by [facility]. It has not been cleared [...] ORDERAB LES Performing Organization Address [facility] Co de Phone Number [facility] [address] * Reticulocyte Count (09/09/2017 10:03 AM EST) Reticulocyte % 2.2 0.7 - 2.6 % [facility] Retic Abs # 0.110 0.030 - 0.120 x10(6)/mcL [facility] Immature Retic% 13.1 0.0 - 15.6 % [facility] Reticulated Hgb 35.4 31.3 - 40.2 pg [facility] Blood specimen (specimen) 09/09/2017 10:03 AM EST 09/09/2017 10:09 AM EST Narrative Resulting Agency Comment Spec In Lab Tal Eagle MD HEMATOLOGY ORDERA BLES Performing Organization Address [facility] Co de Phone Number [facility] [address] * PTH (09/09/2017 10:03 AM EST) Parathyroid Hormone 57 15 - 65 pg/mL [facility] Blood specimen (specimen) 09/09/2017 10:03 AM EST 09/09/2017 10:09 AM EST Narrative Resulting Agency Comment Spec In Lab Tal Eagle MD CHEMISTRY ORDERAB LES Performing Organization Address [facility] Co de Phone Number [facility] [place] [address] * Phosphorus (09/09/2017 10:03 AM EST) Phosphorus 2.5 2.5 - 4.5 mg/dL [facility] Blood specimen (specimen) 09/09/2017 10:03 AM EST 09/09/2017 10:09 AM EST Narrative Resulting Agency Comment Spec In Lab Tal Eagle MD CHEMISTRY ORDERAB LES Performing Organization Address City/[facility]/ZIP Co de Phone Number [facility] [place] [address] * BKV Quant Blood (09/09/2017 10:03 AM EST) BKV Blood Result Not Detected [facility] BKV Blood Interp BK Virus Plasma Result Interpretation Result: BK Virus not detected Specimen type: plasma Assay Range: 2.83-8.83 log copies/mL (6.8x10^2 - 6.8x10^8 copies/mL) Methods: Quantitative real-time polymerase chain reaction (PCR) of viral DNA isolated from plasma was performed using [employer] (formerly, [employer]) BKV analyte-specific reagents and the [employer] 7500 FAST Real-Time PCR System. In addition, [...] and [employer] ([employer]) Laboratory at [facility]. It has not been cleared or approved by the FDA. The laboratory is regulated under CLIA as qualified to perform high-complexity testing. This test is used for clinical purposes. It should not be regarded as investigational or for research. [facility] Comment: [VERIFIED DATE]09.15.17 Verified By:Jimmy Gleason (Electronic Signature) Blood specimen (specimen) 09/09/2017 10:03 AM EST 09/09/2017 12:55 PM EST Narrative Resulting Agency Comment Spec In Lab Tal Eagle MD MOLECULAR ORDERAB LES Performing Organization Address City/[facility]/ZIP Co de Phone Number [facility] [place] [address] * (ABNORMAL) Magnesium (09/09/2017 10:03 AM EST) Magnesium 0.68(L) 0.69 - 1.07 mmol/L [facility] Blood specimen (specimen) 09/09/2017 10:03 AM EST 09/09/2017 10:09 AM EST Narrative Resulting Agency Comment Spec In Lab Tal Eagle MD CHEMISTRY ORDERAB LES [facility] [place] [address] * Lipid Panel (09/09/2017 10:03 AM EST) Cholesterol, Total 138 mg/dL [facility] Comment: Lower Risk: <200 mg/dL Average Risk: 200-239 mg/dL Higher Risk: >jc=872 mg/dL Triglyceride 178 mg/dL [facility] Comment: Average Risk/Lower Risk: <150 mg/dL Borderline High Risk: 150-199 mg/dL High Risk: 200-499 mg/dL Very High Risk: >ow=038 mg/dL HDL Cholesterol 33 mg/dL [facility] Comment: Males: ?? Higher Risk: <40 mg/dL Females: ?? HIgher Risk: <50 mg/dL LDL Cholesterol 69 mg/dL [facility] Comment: Lowest Risk: <100 mg/dL Lower Risk: 100-129 mg/dL Borderline High Risk: 130-159 mg/dL High Risk: 160-189 mg/dL Very High Risk: >xw=227 mg/dL Cholesterol/HDL Ratio 4.2 ratio [facility] Lipid Interpretation See Note [facility] Comment: Lipid management should be guided by a patient? s ASCVD risk, goals and preferences. ACC/AHA Guidelines recommend high intensity statin if clinical ASCVD or LDL greater than or equal to 190 mg/dL. http://FreeWavzurl.com/THU-WGF-Pvpqajrgi Adults aged 40-75 with LDL 70-189 mg/dL should have their 10 year ASCVD risk estimated with the ACC/AHA ASCVD risk manager intensive care http://tools.acc.org/OWMYF-Zksj-Yhrlhhekm/ Statin should be discussed if risk greater [...] CHEMISTRY ORDERAB LES [facility] [place] [address] * Hemoglobin A1c (09/09/2017 10:03 AM EST) Hemoglobin A1c 5.1 4.3 - 5.6 % [facility] Comment: Reference Range: 4.3 - [...] Mellitus, Diabetes Care 2013; 36: Suppl. 1, S67- Estimated Average Glucose 100 mg/dL [facility] Comment: eAG equivalents for HbA1c [...] into estimated average glucose values. ??Diabetes Care 2008:31(8):3726-5190. Blood specimen (specimen) 09/09/2017 10:03 AM EST 09/09/2017 10:09 AM EST Narrative Resulting Agency Comment Spec In Lab Tal Eagle MD CHEMISTRY ORDERAB LES [facility] [place] [address] * (ABNORMAL) CMP w/fasting Glucose (09/09/2017 10:03 AM EST) Glucose Fasting 122(H) 65 - 99 mg/dL [facility] Comment: ?Fasting* Glucose Interpretive Criteria [...] of Diabetes Mellitus, Position Statement from the [place] [employer]. ??Diabetes Care, Volume 33, Supplement 1, Jul 2009 Blood Urea Nitrogen 14 10 - 20 mg/dL [facility] Creatinine 1.20 0.80 - 1.50 mg/dL [facility] Sodium 139 135 - 145 mmol/L [facility] Potassium 3.6 3.5 - 5.0 mmol/L [facility] [...] mg/dL [facility] Protein, Total 7.6 6.1 - 8.0 gm/dL [facility] Albumin 4.1 3.2 - 5.2 gm/dL [facility] Aspartate Aminotransferase 18 0 - 39 unit/L [facility] Alanine Aminotransferase 19 0 - 55 unit/L [facility] Alkaline Phosphatase 71 40 - 120 unit/L [facility] Bilirubin, Total 1.1 0.2 - 1.3 mg/dL [facility] Est Glomerular Filtration Rate 60 >=60 [facility] Comment: The reported eGFR should be multiplied by 1.2 for patients. The MDRD is not an appropriate measure of renal function for patients with body mass extremes or in patients with acute kidney failure. http://Sw[employer]/DHnkdep http://[employer]/DHMCnkf Blood specimen (specimen) 09/09/2017 10:03 AM EST 09/09/2017 10:09 AM EST Narrative Resulting Agency Comment Spec In Lab Tal Eagle MD CHEMISTRY ORDERAB LES [facility] [place] [address] * 1,25-dihydroxycholecalciferol (09/09/2017 10:03 AM EST) Vit D 1,25 Dihydroxy (NOVEMBER) 59 18 - 64 pg/mL [facility] Comment: ADDITIONAL INFORMATION This test was developed and its performance characteristics determined by [facility] in a manner consistent with CLIA requirements. This test has not been cleared or approved by the U.S. Food and Drug Administration. Test Performed by: [facility] [address] [place] [address] Blood specimen (specimen) 09/09/2017 10:03 AM EST 09/09/2017 12:15 PM EST Narrative Resulting Agency Comment Spec In Lab Tal Eagle MD LAB SEND OUT ROCHELLE JENNINGS [facility] [place] [address] * Uric acid, urine, 24 hour (09/09/2017 6:15 AM EST) Pathologist [facility] U24 Uric Conc 29.0 mg/dL [facility] Uric Acid, 24 Hour Urine 0.41 0.25 - 0.80 gm/24hr [facility] Urine specimen (specimen) 09/09/2017 6:15 AM EST 09/09/2017 11:04 AM EST Narrative Resulting Agency Comment Spec In Lab Tal Eagle MD URINE ORDERABLES [facility] [place] [address] * (ABNORMAL) Protein, urine, 24 hour (09/09/2017 6:15 AM EST) Protein Concentration, U24 56 <=80 mg/dL [facility] Protein, 24 Hour Urine 0.78(H) <=0.15 gm/24hr [facility] Urine specimen (specimen) 09/09/2017 6:15 AM EST 09/09/2017 11:04 AM EST Narrative Resulting Agency Comment Spec In Lab Tal Eagle MD URINE ORDERABLES Performing Organization Address [facility] Co de Phone Number [facility] [place] [address] * Phosphorus, urine, 24 hour (09/09/2017 6:15 AM EST) Phosphorus Concentration, U24 66.0 mg/dL [facility] Phosphorus, 24 Hour Urine 0.9 0.4 - 1.3 gm/24hr [facility] Urine specimen (specimen) 09/09/2017 6:15 AM EST 09/09/2017 11:04 AM EST Narrative Resulting Agency Comment Spec In Lab Tal Eagle MD URINE ORDERABLES Performing Organization Address [facility] Co de Phone Number [facility] [place] [address] * Creatinine, urine, 24 hour (09/09/2017 6:15 AM EST) Cre Concentration, U24 107 mg/dL [facility] Creatinine, 24 Hour Urine 1.50 0.80 - 1.90 gm/24hr [facility] Urine specimen (specimen) 09/09/2017 6:15 AM EST 09/09/2017 11:04 AM EST Narrative Resulting Agency Comment Spec In Lab Tal Eagle MD URINE ORDERABLES Performing Organization Address [facility] Co de Phone Number [facility] [place] [address] * (ABNORMAL) Creatinine Clearance, urine, 24 hour (09/09/2017 6:15 AM EST) Creatinine Clearance, 24 Hour Urine 87(L) 90 - 139 mL/min [facility] Cre Concentration, U24 107 mg/dL [facility] Creatinine, 24 Hour Urine 1.50 0.80 - 1.90 gm/24hr [facility] Urine specimen (specimen) 09/09/2017 6:15 AM EST 09/09/2017 11:04 AM EST Narrative Resulting Agency Comment Spec In Lab Tal Eagle MD URINE ORDERABLES Performing Organization Address [facility] de Phone Number [facility] [address] * Calcium, urine, 24 hour (09/09/2017 6:15 AM EST) Ca Concentration, U24 9.5 mg/dL [facility] Calcium, 24 Hour Urine 133.0 50.0 - 300.0 mg/24hr [facility] Comment:Reference Range: 50. 0-300.0 mg/24 hour based on diet. 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
--- OUTSIDE RECORDS SUMMARY | 2024-04-04 14:04 | XMS_ITS | Encounter Summary ---
Author Organization [facility] [place] [address] Care Team Providers Care Deposition Reporter Name Role Phone Adeel Urbano KIRBY Primary Care Provider Encounter Details Date Type Department Care Team (Late st Contact Info) Description 11/19/2017 8:30 AM EDT Notes Only [place] [address] Social History Tobacco Use Types [...] PM EDT Office Visit Cardiology at [address] [address] [facility] [place] [address] 04/15/2024 10:00 AM EDT Hospital Encounter [place] [address] Arrived documented as of this [...] on filedocumented in this encounter Care Teams Deposition Reporter Relationship Specialty Start Date End Date Urbano Denis DO [facility] [address] [place] [address] PCP - General 09/03/12 03/17/22 Ruchi Valles RN Nurse Clinic Transplant Surgery 07/30/15 documented as of this encounter
--- OUTSIDE RECORDS SUMMARY | 2024-04-04 14:04 | XMS_ITS | Encounter Summary ---
Author Organization [facility] Address [facility] [place] [address] Care Team Providers Care Voice Intercept Technician Name Role Phone Urbano Denis DO Primary Care Provider [phone] Encounter Details Date Type Department Care Team (Late st Contact Info) Description 06/24/2017 Telephone [place] [address] [facility] [place] [address] Social History Tobacco Use Types Packs/Day Years [...] RD - 06/24/2017 9:54 AM EST This marketing writer attempted to contact this patient in order to further review phosphorus-rich foods and drinks. Left a message at home phone. Patient's was already contacted by one of our nurse coordinators, but this marketing writer mailed the lists of foods and drinks to patient as well. Remain available for any questions/concerns. documented in this encounter Plan of Treatment Upcoming Encounters Date Type Department Care Team (Late st Contact Info) Description 04/08/2024 1:40 PM EDT Office Visit Cardiology at [address] [phone] Jay Urban MD [facility] [place] [address] 04/15/2024 10:00 AM EDT Hospital Encounter Non-[place] [address] Arrived documented as of this [...] on filedocumented in this encounter Care Teams Voice Intercept Technician Relationship Specialty Start Date End Date Urbano Denis DO [address] [place] [address] [address] [facility] [address] [place] [address] PCP - General 09/03/12 03/17/22 Hai STANLEY,Ruchi Nurse Clinic Transplant Surgery 07/30/15 documented as of this encounter
--- OUTSIDE RECORDS SUMMARY | 2024-04-04 14:04 | XMS_ITS | Encounter Summary ---
[place] [address] Care Team Providers Care Neonatal Critical Care Nurse Name Role Phone AdeelUrbano Primary Care Provider Encounter Details Date Type Department Care Team (Late st Contact Info) Description 11/04/2017 1:30 PM EDT Notes [place] [address] Social History Tobacco Use Types Packs/Day Years [...] We discussed qualifications to go to a halfway facility. We discussed potential out of pocket [...] that they will be working with a animal caregiver after surgery to facilitate the discharge plan. I encouraged the patient to call with any questions or concerns prior to the surgery as well as when they discharge home. Health/Prescription Coverage: Primary Insurance: MEDICARE Secondary Insurance: [employer] [facility] Prescription Coverage: Yes Preferred Pharmacy: [place], [place] - [facility] [address] [place] [facility] [place] [address] ? Not a 24 hour pharmacy; exact hours not known Other: None Primary Care Provider: Urbano Denis DO [phone] Patient/Caregiver Goals of Treatment: He wants to move and do things. Potential Needs for Transition of Care: Rehab/SNF: No selection Home Health: No selection [facility] PT: [facility] [place], [place] A referral has been sent. Pt [...] with OP PT at [facility] in [place]. A member of the Care Management team will continue to monitor progress, follow for continuity of care and assist with transition of care planning. Daksha Harrell Pager: [phone] documented in this encounter Plan of Treatment Upcoming Encounters Date Type Department Care Team (Late st Contact Info) Description 04/08/2024 1:40 PM EDT Office Visit Cardiology at [address] [address] Jay Urban MD [facility] [place] [address] 04/15/2024 10:00 AM EDT Hospital Encounter Non[place] [address] Arrived documented as of this encounter Goals Goal Patient Goal Type Associated Problems Recent Progress Patient-Stated? Author [facility] Medication Compliance and Understanding Patient Facing Action Plan On track( 017 10:41 AM EDT) No Selena Cisneros, [facility] Note: Patient Goal: Clear hepatitis C Timeframe to meet goal: within 12 weeks of therapy documented as of this encounter Visit Diagnoses Not on filedocumented in this encounter Care Teams Neonatal Critical Care Nurse Relationship Specialty Start Date End Date Urbano Denis DO [address] [place] [address] PCP - General 09/03/12 03/17/22 Ruchi Valles RN Nurse Clinic Transplant Surgery 07/30/15 documented as of this encounter
--- OUTSIDE RECORDS SUMMARY | 2024-04-04 14:04 | XMS_ITS | Encounter Summary ---
Author Organization [facility] Address [facility] [place] [address] Care Team Providers Care Intellectual Property Legal Assistant Name Role Phone AdeelUrbano Primary Care Provider Encounter Details Date Type Department Care Team (Latest Contact Info) Description 10/05/2017 9:46 AM EDT - 10/05/2017 11:59 PM EDT Hospital Encounter XRay at [address] [place] [address] Breezy aDle MD [facility] [place] [address] Right knee pain, unspecified chronicity Discharge Disposition: [...] 1:40 PM EDT Office Visit Cardiology at [address] [place] [address] Jay Urban MD [facility] [place] [address] 04/15/2024 10:00 AM EDT Hospital Encounter Non-Invasive Cardiology Lab [facility] [place] [address] Arrived documented as of this encounter Goals [...] chronicity documented in this encounter Care Teams Intellectual Property Legal Assistant Relationship Specialty Start Date End Date Urbano Denis DO [address] [place] [address] PCP - General 09/03/12 03/17/22 Ruchi Valles RN Nurse Clinic Transplant Surgery 07/30/15 documented as of this encounter
--- OUTSIDE RECORDS SUMMARY | 2024-04-04 14:04 | XMS_ITS | Encounter Summary ---
Author Organization [facility] [place] [address] Care Team Providers Care Automated Weaver Name Role Phone Adeel Urbano KIRBY Primary Care Provider Reason for Visit * Reason Comments Medication Refill Encounter Details Date Type Department Care Team (Late st Contact Info) Description 07/17/2017 Refill [place] [phone] Que Amaro MD [facility] [place] [address] Social History Tobacco Use Types Packs/Day Years [...] PM EDT Office Visit Cardiology at [address] [address] Jay Urban MD [facility] [place] [address] 04/15/2024 10:00 AM EDT Hospital Encounter Non-[place] [phone] Arrived documented as of this encounter Goals [...] on filedocumented in this encounter Care Teams Automated Weaver Relationship Specialty Start Date End Date Urbano Denis DO [address] [place] [address] [address] [facility] [place] [address] PCP - General 09/03/12 03/17/22 Ruchi Valles RN Nurse Clinic Transplant Surgery 07/30/15 documented as of this encounter
--- OUTSIDE RECORDS SUMMARY | 2024-04-04 14:04 | XMS_ITS | Encounter Summary ---
[place] [address] Care Team Providers Care Reproductive Healthcare Assistant Name Role Phone Adeel, Urbano KIRBY Primary Care Provider [phone] Reason for Visit * Reason Onset Date Comments Medication Refill 08/19/2017 Encounter Details Date Type Department Care Team (Late st Contact Info) Description 08/19/2017 Refill [place] [address] Joanne Nogueira CMA Social History Tobacco Use [...] 500 mg to be called in to [facility] pharmacy. documented in this encounter Plan of Treatment Upcoming Encounters Date Type Department Care Team (Late st Contact Info) Description 04/08/2024 1:40 PM EDT Office Visit Cardiology at [address] [address] Jay Urban MD [facility] [place] [address] 04/15/2024 10:00 AM EDT Hospital Encounter Non-[place] [address] Arrived documented as of this [...] on filedocumented in this encounter Care Teams Reproductive Healthcare Assistant Relationship Specialty Start Date End Date Urbano Denis DO [address] [place] [address] [address] [facility] 1 [place] [address] PCP - General 09/03/12 03/17/22 Ruchi Valles RN Nurse Clinic Transplant Surgery 07/30/15 documented as of this encounter
--- OUTSIDE RECORDS SUMMARY | 2024-04-04 14:04 | XMS_ITS | Encounter Summary ---
Author Organization [facility] [place] [address] Care Team Providers Care Resin Filterer Name Role Phone Adeel Urbano KIRBY Primary Care Provider [phone] Reason for Visit * Reason Comments Right Knee Pain * Consultation (Routine) - Specialty Diagnoses / Procedures Referred By Humberto flor Referred To Contact Orthopaedics Diagnoses Osteoarthritis of right knee, unspecified osteoarthritis type Tal Eagle MD [facility] [place] [address] Breezy Dale MD [facility] [place] [address] Referral ID Status Reason Start Date Expiration Date V isits Requested Visits Authorized [id number] Consult, Test & Treat 09/09/2017 09/09/2018 10 10 Encounter Details Date Type Department Care Team (Latest Contact Info) Description 10/05/2017 10:20 AM EDT Office [place] [address] Breezy Dale MD [facility] [place] [address] Pain of right lower extremity; Debility; Primary [...] Bolden was referred from Tal Eagle MD [facility] [place] [address] I.D.: Cody Bolden is a 67 y.o. [...] not to answer # People Supported 2 Djib[place]ian, , No, not Djiboutian// Race White Health Literacy Extremely Currently working No Not working because: Retired [employer] Response 10/05/2017 KOOS JR Scores 57.14 Spine The [employer] Response 10/05/2017 KOOS JR Scores 57.14 ALLERGIES [...] hepatitis) K73.2 ??? Prophylactic immunotherapy Z29.8 ??? manager terminal current use of immunosuppressive drug Z79.899 [...] MD, MS Chief, Division of Adult Reconstructive Decision Support ManagerCrisis Counselor of Orthopaedics Department of Orthopaedics [facility] [address] [email or web address] documented in this encounter Plan of Treatment Upcoming Encounters Date Type Department Care Team (Late st Contact Info) Description 04/08/2024 1:40 PM EDT Office Visit Cardiology at [address] [address] Jay Urban MD [facility] [place] [address] 04/15/2024 10:00 AM EDT Hospital Encounter Non-[place] [phone] Arrived documented as of this encounter Goals [...] * XR Knee Standing Alignment AP Lat [place] Right (01/04/2018 12:15 PM EDT) Anatomical Region [...] arthroplasty. No acute complication. Breezy Dale MD [facility] DX ORDERABLES * APTT (11/04/2017 12:53 PM EDT) [facility] Signature Partial Thromboplastin Time 30 25 - 37 [...] MD HEMATOLOGY ORDERABL ES Performing Organization Address [facility] de Phone Number [facility] [place] [address] * Prothrombin Time (11/04/2017 12:53 PM EDT) [...] MD HEMATOLOGY ORDERABL ES Performing Organization Address [facility] Co de Phone Number [facility] [place] [address] * (ABNORMAL) Basic Metabolic Panel (non-fasting) (11/04/2017 [...] LABORATORY Est Glomerular Filtration Rate 51(L) >=60 [facility] Comment: The reported eGFR should be multiplied by 1.2 for patients. The MDRD is not an appropriate measure of renal function for patients with body mass extremes or in patients with acute kidney failure. http://[employer]/DHnkdep http://[employer]/DHMCnkf Blood specimen (specimen) 11/04/2017 12:53 PM EDT 11/04/2017 12:56 PM EDT Narrative Resulting Agency Comment Spec In Lab Breezy Dale MD CHEMISTRY ORDERABLE S Performing Organization Address [facility] Co de Phone Number [facility] [place] [address] * EKG 12 Lead (11/04/2017 12:43 PM EDT) Ventricular rate 65 BPM MUSE SYSTEM Atrial Rate 65 BPM MUSE SYSTEM P-R Interval 178 ms MUSE SYSTEM QRS Duration 102 ms MUSE SYSTEM Q-T Interval 436 ms MUSE SYSTEM QTC Calculated (Bezet) 453 ms MUSE SYSTEM Calculated P [place] 44 degrees MUSE SYSTEM Calculated R [place] -59 degrees MUSE SYSTEM Calculated T [place] 2 degrees MUSE SYSTEM INTERPRETATION Sinus rhythm with Premature atrial complexes with Aberrant conduction Left anterior fascicular block Abnormal ECG When compared with ECG of 22-JUN-2016 20:24, No significant change was found Confirmed by Damien Ellis MD (49) on 11/04/2017 2:05:54 PM MUSE SYSTEM 11/04/2017 12:4 3 PM EDT 11/04/2017 2:05 PM EDT Breezy Dale MD ECG ORDERABLES Performing Organization Address [facility] Co de Phone Number MUSE SYSTEM documented in this encounter Visit Diagnoses Diagnosis Pain of right lower extremity Debility Debility, unspecified Primary osteoarthritis of right knee Primary localized osteoarthrosis, lower leg Pain of right lower extremity Debility Debility, unspecified Primary osteoarthritis of right knee Primary localized osteoarthrosis, lower leg documented in this encounter Care Teams Resin Filterer Relationship Specialty Start Date End Date Urbano Denis DO [address] [place] [address] PCP - General 09/03/12 03/17/22 Ruchi Valles RN Nurse Clinic Transplant Surgery 07/30/15 documented as of this encounter
--- OUTSIDE RECORDS SUMMARY | 2024-04-04 14:04 | XMS_ITS | Encounter Summary ---
Author Organization [facility] [place] [address] Care Team Providers Care Flame Cutting Machine Operator Name Role Phone AdeelUrbano boland Primary Care Provider Encounter Details Date Type Department Care Team (Late st Contact Info) Description 08/28/2017 Orders [place] [address] Joanne Nogueira CMA Social History [...] 9:12 AM EST Standing orders faxed to [facility] laboratory at [phone]. documented in this encounter Plan of Treatment Upcoming Encounters Date Type Department Care Team (Late st Contact Info) Description 04/08/2024 1:40 PM EDT Office Visit Cardiology at [address] [address] Jay Urban MD [facility] [place] [address] 04/15/2024 10:00 AM EDT Hospital Encounter Non-Invasive Cardiology Lab [facility] [place] [address] Arrived documented as of this encounter Goals Goal Patient Goal Type Associated Problems Recent Progress Patient-Stated? Author [facility] Medication Compliance and Understanding Patient Facing Action Plan On track( 017 10:41 AM EDT) Selena Scott, [facility] Note: Patient Goal: Clear hepatitis C Timeframe to meet goal: within 12 weeks of therapy documented as of this encounter Visit Diagnoses Not on filedocumented in this encounter Care Teams Flame Cutting Machine Operator Relationship Specialty Start Date End Date Urbano Denis DO [address] [place] [address] PCP - General 09/03/12 03/17/22 Ruchi Valles RN Nurse Clinic Transplant Surgery 07/30/15 documented as of this encounter
--- OUTSIDE RECORDS SUMMARY | 2024-04-04 14:04 | XMS_ITS | Encounter Summary ---
[place] [address] Care Team Providers Care Business Applications Specialist Name Role Phone Urbano Denis DO Primary Care Provider Encounter Details Date Type Department Care Team (Late st Contact Info) Description 06/16/2017 Telephone Solid [place] [phone] Margarette Kuhn, RN Social History Tobacco Use [...] PM EDT Office Visit Cardiology at [address] [address] Jay Urban MD [facility] [place] [place] [address] 04/15/2024 10:00 AM EDT Hospital Encounter [place] [address] Arrived documented as of this encounter Goals Goal Patient Goal Type Associated Problems Recent Progress Patient-Stated? Author [facility] Medication Compliance and Understanding Patient Facing Action Plan On track( 017 10:41 AM EDT) Selena Scott, [facility] Note: Patient Goal: Clear hepatitis C Timeframe to meet goal: within 12 weeks of therapy documented as of this encounter Visit Diagnoses Not on filedocumented in this encounter Care Teams Business Applications Specialist Relationship Specialty Start Date End Date Urbano Denis DO [address] [place] [address] [address] [facility] 1 [place] [address] PCP - General 09/03/12 03/17/22 Ruchi Valles RN Nurse Clinic Transplant Surgery 07/30/15 documented as of this encounter
--- OUTSIDE RECORDS SUMMARY | 2024-04-04 14:04 | XMS_ITS | Encounter Summary ---
Author Organization [facility] [place] [address] Care Team Providers Care Predictive Maintenance Technician Name Role Phone Urbano Denis DO Primary Care Provider Encounter Details Date Type Department Care Team (Latest Contact Info) Description 11/04/2017 12:20 PM EDT Laboratory [place] [address] Pain of right lower extremity; Debility; Primary [...] PM EDT Office Visit Cardiology at [address] [address] Jay Urban MD [facility] [place] [place] [address] 04/15/2024 10:00 AM EDT Hospital Encounter Non-Invasive [place] [address] Arrived documented as of [...] 12:53 PM EDT) Neutrophil % 63.8 % [facility] Neutrophil Absolute 6.24(H) 1.70 - 6.10 x10(3)/mc L [facility] Lymph % 24.1 % [facility] Lymphocytes Abs 2.4 0.9 - 3.2 x10(3)/mc L [facility] Monocyte % 7.3 % [facility] Monocyte Abs 0.7 0.3 - 0.9 x10(3)/mc L [facility] Eos % 3.4 % [facility] Eosinophils Abs 0.3 0.0 - 0.4 x10(3)/[facility]OR[facility] Basophil % 0.8 % [facility] Baso Absolute 0.1 0.0 - 0.1 x10(3)/[facility] LABOR[facility] Immature Gran % 0.60 % [facility] Comment: Immature granulocytes(IG's)percentage and absolute count will include metamyelocytes, myelocytes, and promyelocytes. Blood smears from CBCs yielding IG's will be scanned manually for concordance. If this scan disagrees with the automated IG or if promyelocytes are noted, a manual differential will be performed. Immature Gran Absolute 0.06(H) 0.00 - 0.04 x10(3)/[facility] LABOR[facility] Blood specimen (specimen) 11/04/2017 12:53 PM EDT 11/04/2017 12:56 PM EDT Narrative Resulting Agency Comment Spec In Lab Breezy Dale MD HEMATOLOGY ORDERABL ES [facility] [address] * (ABNORMAL) Hemogram (11/04/2017 12:53 PM EDT) White Blood Cell 9.8(H) 4.0 - 9.5 x10(3)/[facility] LABOR[facility] Red Blood Cell 5.16 4.58 - 5.54 x10(6)/[facility] Hemoglobin 15.7 13.7 - 16.5 gm/dL [facility] Hematocrit 45.1 40.5 - 48.5 % [facility] Mean Cell Volume 87.4 82.9 - 93.1 fL [facility] Mean Cell Hemoglobin 30.4 27.5 - 32.1 pg [facility] Mean Cell Hemoglobin Concentration 34.8 32.0 - 35.7 gm/dL [facility] Platelet 272 145 - 357 x10(3)/mc L [facility] RDW Standard Deviation 42.3 36.0 - 45.0 [facility] RDW coefficient of variation 13.2 11.4 - 13.8 % [facility] Mean Platelet Volume 9.5 7.6 - 12.9 [facility] LAB[facility] NRBC% auto 0.0 % [facility] NRBC Absolute 0.000 0.000 - 0.000 x10(3)/mc L [facility] Blood specimen (specimen) 11/04/2017 12:53 PM EDT 11/04/2017 12:56 PM EDT Narrative Resulting Agency Comment Spec In Lab Breezy Dale MD HEMATOLOGY ORDERABL ES Performing Organization Address [facility] de Phone Number [facility] [address] * APTT (11/04/2017 12:53 PM EDT) Partial Thromboplastin Time 30 25 - 37 sec [facility] Comment: The PTT is NOT appropriate for heparin monitoring. Use the Anti-Xa level for heparin monitoring (HEP UFH) or LMWH monitoring (HEP LMW). A PTT less than 37 seconds generally indicates adequate hemostasis. Blood specimen (specimen) 11/04/2017 12:53 PM EDT 11/04/2017 12:56 PM EDT Narrative Resulting Agency Comment Spec In Lab Breezy Dale MD HEMATOLOGY ORDERABL ES Performing Organization Address [facility] Co de Phone Number [facility] [address] * Prothrombin Time (11/04/2017 12:53 PM EDT) Prothrombin Time 11.9 9.4 - 12.5 sec [facility] International Normalization Ratio 1.1 [facility] Comment: An INR <2.0 indicates [...] Lab Breezy Dale MD HEMATOLOGY ORDERABL ES [facility] [address] * (ABNORMAL) Basic Metabolic Panel (non-fasting) (11/04/2017 12:53 PM EDT) Glucose 129 65 - 199 mg/dL [facility] Comment:Diabetes: >=200 mg/d L plus symptoms Blood Urea Nitrogen 21(H) 10 - 20 mg/dL [facility] Creatinine 1.39 0.80 - 1.50 mg/dL [facility] [...] questions. Chloride 99 98 - 107 mmol/L [facility] Carbon Dioxide 24 22 - 31 mmol/L [facility] Anion Gap 14 5 - 15 mmol/L [facility] Calcium 9.3 8.5 - 10.5 mg/dL [facility] Est Glomerular Filtration Rate 51(L) >=60 [facility] Comment: The reported eGFR should be multiplied by 1.2 for patients. The MDRD is not an appropriate measure of renal function for patients with body mass extremes or in patients with acute kidney failure. http://[employer]/DHnkdep http://[employer]/DHMCnkf Blood specimen (specimen) 11/04/2017 12:53 PM EDT 11/04/2017 12:56 PM EDT Narrative Resulting Agency Comment Spec In Lab Breezy Dale MD CHEMISTRY ORDERABLE S [facility] [place] [address] documented in this encounter Visit Diagnoses Diagnosis Pain of right lower extremity Debility Debility, unspecified Primary osteoarthritis of right knee Primary localized osteoarthrosis, lower leg documented in this encounter Care Teams Predictive Maintenance Technician Relationship Specialty Start Date End Date Urbano Denis DO [address] [place] [address] PCP - General 09/03/12 03/17/22 Ruchi Valles RN Nurse Clinic Transplant Surgery 07/30/15 documented as of this encounter
--- OUTSIDE RECORDS SUMMARY | 2024-04-04 14:04 | XMS_ITS | Encounter Summary ---
Author Organization [facility] [place] [address] Care Team Providers Care Pharmacy Order Entry Technician Name Role Phone Adeel Urbano KIRBY Primary Care Provider Encounter Details Date Type Department Care Team (Latest Contact Info) Description 06/04/2017 - 06/04/2017 11:59 PM EST Hospital Encounter Radiology Library at [facility] [place] [address] Breezy Dale MD [facility] [place] [address] Discharge Disposition: Home Social History Tobacco Use [...] 1:40 PM EDT Office Visit Cardiology at [address] [phone] Jay Urban MD [facility] [place] [address] 04/15/2024 10:00 AM EDT Hospital Encounter Non-[place] [phone] Arrived documented as of this encounter Goals [...] DX Knee (06/04/2017 12:00 AM EST) Narrative [facility] - 09/16/2017 9:57 AM EDT This exam is for storage only and is auto-finalizing. Breezy Dale MD IMG FILM LIBRARY OR DERABLES [place], [place] documented in this encounter Visit Diagnoses Not on filedocumented in this encounter Care Teams Pharmacy Order Entry Technician Relationship Specialty Start Date End Date Urbano Denis DO [address] [place] [address] PCP - General 09/03/12 03/17/22 Ruchi Valles RN Nurse Clinic Transplant Surgery 07/30/15 documented as of this encounter
--- OUTSIDE RECORDS SUMMARY | 2024-04-04 14:04 | XMS_ITS | Encounter Summary ---
Author Organization [facility] [place] [address] Care Team Providers Care Coat Check Attendant Name Role Phone Urbano Denis DO Primary Care Provider [phone] Encounter Details Date Type Department Care Team (Latest Contact Info) Description 09/09/2017 9:40 AM EST Laboratory Appointment Lab [address] [place] [address] Kidney replaced by transplant; custodial current use of immunosuppressive drug ; Vitamin [...] PM EDT Office Visit Cardiology at [address] [address] Jay Urban MD [facility] [place] [address] 04/15/2024 10:00 AM EDT Hospital Encounter Non[place] [address] Arrived documented as of this encounter Goals Goal Patient Goal Type Associated Problems Recent Progress Patient-Stated? Author Home Medication Compliance and Understanding Patient Facing Action Plan On track( 017 10:41 AM EDT) Selena Scott, [facility] Note: Patient Goal: [...] HEMOGLOBIN A1C STAT 09/09/2017 10:03 AM EST custodial current use of immunosuppressive drug Kidney replaced [...] RBC, Urine 2 0 - 3 /HPF [facility] WBC, Urine <1 0 - 3 /HPF [facility] Urine specimen obtained by clean catch procedure (specimen) 09/09/2017 10:53 AM EST 09/09/2017 10:58 AM EST Narrative Resulting Agency Comment Spec In Lab Tal Eagle MD URINE ORDERABLES [facility] [place] [address] * (ABNORMAL) Urinalysis with reflex Culture (09/09/2017 [...] HOSPITAL LABORATORY Leukocytes, Urine Dipstick Negative Negative [facility] Appearance, Urine Dipstick Clear Clear [facility] Specific [place] Urine Automated 1.016 1.002 - 1.030 [facility] Color, Urine Dipstick Yellow Yellow [facility] Reflex to Culture No [facility] Urine specimen obtained by clean catch procedure (specimen) 09/09/2017 10:53 AM EST 09/09/2017 10:58 AM EST Narrative Resulting Agency Comment Spec In Lab Tal Eagle MD URINE ORDERABLES Performing Organization Address City/[facility]/ZIP Co de Phone Number [facility] [place] [place] [address] * (ABNORMAL) Protein/Creatinine Ratio, urine (09/09/2017 10:53 AM EST) Creatinine, Urine 84 mg/dL [facility] Protein, Urine 62(H) 0 - 12 mg/dL [facility] Protein / Creatinine Ratio, Urine 0.7 ratio [facility] Urine specimen (specimen) 09/09/2017 10:53 AM EST 09/09/2017 10:58 AM EST Narrative Resulting Agency Comment Spec In Lab Tal Eagle MD URINE ORDERABLES Performing Organization Address [facility]/ZIP Co de Phone Number [facility] [place] [place] [address] * Phosphorus, urine, random (09/09/2017 10:53 AM EST) Phosphorus, Urine 49.2 mg/dL [facility] Urine specimen (specimen) 09/09/2017 10:53 AM EST 09/09/2017 10:58 AM EST Narrative Resulting Agency Comment Spec In Lab Tal Eagle MD URINE ORDERABLES Performing Organization Address City/[facility]/ZIP Co de Phone Number [facility] [place] [address] * Calcium Creatinine Ratio, random urine (09/09/2017 10:53 AM EST) Calcium, Urine 7.9 mg/dL [facility] Creatinine, Urine 84 mg/dL [facility] Calcium / Creatinine Ratio, Urine 0.09 ratio [facility] Urine specimen (specimen) 09/09/2017 10:53 AM EST 09/09/2017 10:58 AM EST Narrative Resulting Agency Comment Spec In Lab Tal Eagle MD URINE ORDERABLES [facility] [place] [address] * (ABNORMAL) Differential, Automated (09/09/2017 10:03 AM EST) Neutrophil % 64.2 % [facility] Neutrophil Absolute 5.05 1.70 - 6.10 x10(3)/mc L [facility] Lymph % 24.2 % [facility] Lymphocytes Abs 1.9 0.9 - 3.2 x10(3)/mc L [facility] Monocyte % 7.1 % [facility] Monocyte Abs 0.6 0.3 - 0.9 x10(3)/mc L [facility] Eos % 2.7 % [facility] Eosinophils Abs 0.2 0.0 - 0.4 x10(3)/mc L [facility] Basophil % 1.0 % [facility] Baso Absolute 0.1 0.0 - 0.1 x10(3)/mc L [facility] Immature Gran % 0.80 % [facility] Comment: Immature granulocytes(IG's)percentage and absolute count will include metamyelocytes, myelocytes, and promyelocytes. Blood smears from CBCs yielding IG's will be scanned manually for concordance. If this scan disagrees with the automated IG or if promyelocytes are noted, a manual differential will be performed. Immature Gran Absolute 0.06(H) 0.00 - 0.04 x10(3)/mc L [facility] Blood specimen (specimen) 09/09/2017 10:03 AM EST 09/09/2017 10:09 AM EST Narrative Resulting Agency Comment Spec In Lab Tal Eagle MD HEMATOLOGY ORDERA BLES [facility] [place] [address] * Hemogram (09/09/2017 10:03 AM EST) [facility] White Blood Cell 7.9 4.0 - 9.5 x10(3)/[facility] Red Blood Cell 5.10 4.58 - 5.54 x10(6)/[facility] Hemoglobin 15.8 13.7 - 16.5 gm/dL [facility] Hematocrit 45.2 40.5 - 48.5 % [facility] Mean Cell Volume 88.6 82.9 - 93.1 [facility] Mean Cell Hemoglobin 31.0 27.5 - 32.1 pg [facility] Mean Cell Hemoglobin Concentration 35.0 32.0 - 35.7 gm/dL [facility] Platelet 304 145 - 357 x10(3)/[facility] RDW Standard Deviation 41.6 36.0 - 45.0 [facility] LAB[facility] RDW coefficient of variation 12.8 11.4 - 13.8 % [facility] Mean Platelet Volume 8.9 7.6 - 12.9 [facility] LABORATORY NRBC% auto 0.0 % [facility] NRBC Absolute 0.000 0.000 - 0.000 x10(3)/[facility] Blood specimen (specimen) 09/09/2017 10:03 AM EST 09/09/2017 10:09 AM EST Narrative Resulting Agency Comment Spec In Lab Tal Eagle MD HEMATOLOGY ORDERA BLES [facility] [place] [address] * Gold Tube HOLD (09/09/2017 10:03 AM EST) Gold Hold Sample in lab. [facility] Blood specimen (specimen) 09/09/2017 10:03 AM EST 09/09/2017 10:09 AM EST Tal Eagle MD CHEMISTRY ORDERAB LES Performing Organization Address [facility] Co de Phone Number [facility] [place] [address] * Lavender Tube HOLD (09/09/2017 10:03 AM EST) Lavender Hold Sample in lab. [facility] Blood specimen (specimen) 09/09/2017 10:03 AM EST 09/09/2017 10:09 AM EST Tal Eagle MD HEMATOLOGY ORDERA BLES Performing Organization Address [facility] de Phone Number [facility] [place] [address] * (ABNORMAL) Vitamin D, 25-Hydroxy (09/09/2017 10:03 AM EST) Vitamin D Total 25 OH 16(L) 30 - 100 ng/mL [facility] Comment: Deficient <10 ng/mL Insufficient 10 to 29 ng/mL Sufficient 30 to 100 ng/mL Potential Intoxication >100 ng/mL According to the US National Osteoporosis Foundation, Vitamin D concentrations >30 ng/mL are sufficient to protect bone health. ??The National Kidney Foundation has similarly stated that patients with Vitamin D concentrations <30ng/mL should be considered to be insufficient or deficient. http://BodeTree.M:Metrics/nkf-guidelines http://BodeTree.com/nejm-VitD The [employer] i[employer] Vitamin D Immunoassay detects both 25-OH Vitamin D2 and 25-OH Vitamin D3, but only a total Vitamin D concentration is reported. Blood specimen (specimen) 09/09/2017 10:03 AM EST 09/09/2017 2:08 PM EST Narrative Resulting Agency Comment Spec In Lab Tal Eagle MD CHEMISTRY ORDERAB LES Performing Organization Address City/[facility]/ZIP Co de Phone Number [facility] [place] [address] * Uric acid (09/09/2017 10:03 AM EST) Uric Acid 7.3 3.5 - 8.5 mg/dL [facility] Blood specimen (specimen) 09/09/2017 10:03 AM EST 09/09/2017 10:09 AM EST Narrative Resulting Agency Comment Spec In Lab Tal Eagle MD CHEMISTRY ORDERAB LES Performing Organization Address [facility] de Phone Number [facility] [place] [address] * Tacrolimus level (09/09/2017 10:03 AM EST) Pathologist [facility] Tacrolimus 5.5 ng/mL [facility] Comment: Trough therapeutic: ??5-15 ng/mL Performed by ultra-performance liquid chromatography tandem mass spectrometry (UPLCMS/MS). This test was developed and its performance characteristics determined by [facility]. It has not been cleared or [...] CHEMISTRY ORDERAB LES Performing Organization Address [facility] Co de Phone Number [facility] [place] [address] * Reticulocyte Count (09/09/2017 10:03 AM EST) Reticulocyte % 2.2 0.7 - 2.6 % [facility] Retic Abs # 0.110 0.030 - 0.120 x10(6)/mcL [facility] Immature Retic% 13.1 0.0 - 15.6 % [facility] Reticulated Hgb 35.4 31.3 - 40.2 pg [facility] Blood specimen (specimen) 09/09/2017 10:03 AM EST 09/09/2017 10:09 AM EST Narrative Resulting Agency Comment Spec In Lab Tal Eagle MD HEMATOLOGY ORDERA BLES Performing Organization Address [facility] Co de Phone Number [facility] [place] [address] * PTH (09/09/2017 10:03 AM EST) Parathyroid Hormone 57 15 - 65 pg/mL [facility] Blood specimen (specimen) 09/09/2017 10:03 AM EST 09/09/2017 10:09 AM EST Narrative Resulting Agency Comment Spec In Lab Tal Eagle MD CHEMISTRY ORDERAB LES Performing Organization Address [facility] Co de Phone Number [facility] [address] * Phosphorus (09/09/2017 10:03 AM EST) Phosphorus 2.5 2.5 - 4.5 mg/dL [facility] Blood specimen (specimen) 09/09/2017 10:03 AM EST 09/09/2017 10:09 AM EST Narrative Resulting Agency Comment Spec In Lab Tal Eagle MD CHEMISTRY ORDERAB LES Performing Organization Address [facility] Co de Phone Number [facility] [place] [address] * BKV Quant Blood (09/09/2017 10:03 AM EST) BKV Blood Result Not Detected [facility] BKV Blood Interp BK Virus Plasma Result Interpretation Result: BK Virus not detected Specimen type: plasma Assay Range: 2.83-8.83 log copies/mL (6.8x10^2 - 6.8x10^8 copies/mL) Methods: Quantitative real-time polymerase chain reaction (PCR) of viral DNA isolated from plasma was performed using [employer] (formerly, [employer]) BKV analyte-specific reagents and the Applied Biosystems [...] Gen[facility] [employer] [facility] (CGAT) Laboratory at [facility]. It has not been cleared or approved by the FDA. The laboratory is regulated under CLIA as qualified to perform high-complexity testing. This test is used for clinical purposes. It should not be regarded as investigational or for research. [facility] Comment: [VERIFIED DATE]09.15.17 Verified By:Jimmy Gleason (Electronic Signature) Blood specimen (specimen) 09/09/2017 10:03 AM EST 09/09/2017 12:55 PM EST Narrative Resulting Agency Comment Spec In Lab Tal Eagle MD MOLECULAR ORDERAB LES Performing Organization Address [facility]/ZIP Co de Phone Number [facility] [place] [address] * (ABNORMAL) Magnesium (09/09/2017 10:03 AM EST) Magnesium 0.68(L) 0.69 - 1.07 mmol/L [facility] Blood specimen (specimen) 09/09/2017 10:03 AM EST 09/09/2017 10:09 AM EST Narrative Resulting Agency Comment Spec In Lab Tal Eagle MD CHEMISTRY ORDERAB LES Performing Organization Address City/[facility]/ZIP Co de Phone Number [facility] [place] [place] [address] * Lipid Panel (09/09/2017 10:03 AM EST) Cholesterol, Total 138 mg/dL [facility] Comment: Lower Risk: <200 mg/dL Average Risk: 200-239 mg/dL Higher Risk: >cy=600 mg/dL Triglyceride 178 mg/dL [facility] Comment: Average Risk/Lower Risk: <150 mg/dL Borderline High Risk: 150-199 mg/dL High Risk: 200-499 mg/dL Very High Risk: >tk=745 mg/dL HDL Cholesterol 33 mg/dL [facility] Comment: Males: ?? Higher Risk: <40 mg/dL Females: ?? HIgher Risk: <50 mg/dL LDL Cholesterol 69 mg/dL [facility] Comment: Lowest Risk: <100 mg/dL Lower Risk: 100-129 mg/dL Borderline High Risk: 130-159 mg/dL High Risk: 160-189 mg/dL Very High Risk: >mr=399 mg/dL Cholesterol/HDL Ratio 4.2 ratio [facility] Lipid Interpretation See Note [facility] Comment: Lipid management should be guided by a patient? s ASCVD risk, goals and preferences. ACC/AHA Guidelines recommend high intensity statin if clinical ASCVD or LDL greater than or equal to 190 mg/dL. http://BodeTree.com/WZL-ZAZ-Cietoyfof Adults aged 40-75 with LDL 70-189 mg/dL should have their 10 year ASCVD risk estimated with the ACC/AHA ASCVD risk estimator paperboard boxes http://tools.acc.org/MEDRZ-Tubr-Agndidhio/ Statin should be discussed if risk greater [...] Lab Tal Eagle MD CHEMISTRY ORDERAB LES [facility] [place] [address] * Hemoglobin A1c (09/09/2017 10:03 AM EST) Hemoglobin A1c 5.1 4.3 - 5.6 % [facility] Comment: Reference Range: 4.3 [...] 36: Suppl. 1, S67-74 Estimated Average Glucose 100 mg/dL [facility] Comment: eAG equivalents for HbA1c [...] into estimated average glucose values. ??Diabetes Care 2008:31(8):5709-2400. Blood specimen (specimen) 09/09/2017 10:03 AM EST 09/09/2017 10:09 AM EST Narrative Resulting Agency Comment Spec In Lab Tal Eagle MD CHEMISTRY ORDERAB LES [facility] [place] [address] * (ABNORMAL) CMP w/fasting Glucose (09/09/2017 10:03 AM EST) Glucose Fasting 122(H) 65 - 99 mg/dL [facility] [...] of Diabetes Mellitus, Position Statement from the [place] Diabetes [employer]. ??Diabetes Care, Volume 33, Supplement 1, Jul 2009 Blood Urea Nitrogen 14 10 - 20 mg/dL [facility] Creatinine 1.20 0.80 - 1.50 mg/dL [facility] [...] questions. Chloride 99 98 - 107 mmol/L [facility] Carbon Dioxide 24 22 - 31 mmol/L [facility] Anion Gap 16(H) 5 - 15 mmol/L [facility] Calcium 9.2 8.5 - 10.5 mg/dL [facility] Protein, Total 7.6 6.1 - 8.0 gm/dL [facility] Albumin 4.1 3.2 - 5.2 gm/dL [facility] Aspartate Aminotransferase 18 0 - 39 unit/L [facility] Alanine Aminotransferase 19 0 - 55 unit/L [facility] Alkaline Phosphatase 71 40 - 120 unit/L [facility] Bilirubin, Total 1.1 0.2 - 1.3 mg/dL [facility] Est Glomerular Filtration Rate 60 >=60 [facility] Comment: The reported eGFR should be multiplied by 1.2 for patients. The MDRD is not an appropriate measure of renal function for patients with body mass extremes or in patients with acute kidney failure. http://[employer]/DHnkdep http://[employer]/DHMCnkf Blood specimen (specimen) 09/09/2017 10:03 AM EST 09/09/2017 10:09 AM EST Narrative Resulting Agency Comment Spec In Lab Tal Eagle MD CHEMISTRY ORDERAB LES [facility] [place] [address] * 1,25-dihydroxycholecalciferol (09/09/2017 10:03 AM EST) Vit D 1,25 Dihydroxy (NOVEMBER) 59 18 - 64 pg/mL [facility] Comment: ADDITIONAL INFORMATION This test was developed and its performance characteristics determined by [facility] in a manner consistent with CLIA requirements. This test has not been cleared or approved by the U.S. Food and Drug Administration. Test Performed by: [facility] - [facility] [address] [place] [address] Blood specimen (specimen) 09/09/2017 10:03 AM EST 09/09/2017 12:15 PM EST Narrative Resulting Agency Comment Spec In Lab Tal Eagle MD LAB SEND OUT ORDE RABLENORE Performing Organization Address [facility] de Phone Number [facility] [place] [address] * U24 Hrs and Volume (09/09/2017 6:15 AM EST) Hours Collected 24 hour(s) [facility] Total Volume 1,400 mL [facility] Urine specimen (specimen) 09/09/2017 6:15 AM EST 09/09/2017 11:04 AM EST Narrative Resulting Agency Comment Spec In Lab Tal Eagle MD CHEMISTRY ORDERAB LES Performing Organization Address [facility] Number [facility] [place] [address] * Uric acid, urine, 24 hour (09/09/2017 6:15 AM EST) U24 Uric Conc 29.0 mg/dL [facility] Uric Acid, 24 Hour Urine 0.41 0.25 - 0.80 gm/24hr [facility] Urine specimen (specimen) 09/09/2017 6:15 AM EST 09/09/2017 11:04 AM EST Narrative Resulting Agency Comment Spec In Lab Tal Eagle MD URINE ORDERABLES Performing Organization Address [facility] de Phone Number [facility] [place] [address] * (ABNORMAL) Protein, urine, 24 hour (09/09/2017 6:15 AM EST) Protein Concentration, U24 56 <=80 mg/dL [facility] Protein, 24 Hour Urine 0.78(H) <=0.15 gm/24hr [facility] Urine specimen (specimen) 09/09/2017 6:15 AM EST 09/09/2017 11:04 AM EST Narrative Resulting Agency Comment Spec In Lab Tal Eagle MD URINE ORDERABLES Performing Organization Address City/[facility]/ZIP Co de Phone Number [facility] [place] [address] * Phosphorus, urine, 24 hour (09/09/2017 6:15 AM EST) Phosphorus Concentration, U24 66.0 mg/dL [facility] Phosphorus, 24 Hour Urine 0.9 0.4 - 1.3 gm/24hr [facility] Urine specimen (specimen) 09/09/2017 6:15 AM EST 09/09/2017 11:04 AM EST Narrative Resulting Agency Comment Spec In Lab Tal Eagle MD URINE ORDERABLES Performing Organization Address [facility] Co de Phone Number [facility] [place] [address] * Creatinine, urine, 24 hour (09/09/2017 6:15 AM EST) Cre Concentration, U24 107 mg/dL [facility] Creatinine, 24 Hour Urine 1.50 0.80 - 1.90 gm/24hr [facility] Urine specimen (specimen) 09/09/2017 6:15 AM EST 09/09/2017 11:04 AM EST Narrative Resulting Agency Comment Spec In Lab Tal Eagle MD URINE ORDERABLES Performing Organization Address City/[facility]/ZIP Co de Phone Number [facility] [place] [address] * (ABNORMAL) Creatinine Clearance, urine, 24 hour (09/09/2017 6:15 AM EST) Creatinine Clearance, 24 Hour Urine 87(L) 90 - 139 mL/min [facility] Cre Concentration, U24 107 mg/dL [facility] Creatinine, 24 Hour Urine 1.50 0.80 - 1.90 gm/24hr [facility] Urine specimen (specimen) 09/09/2017 6:15 AM EST 09/09/2017 11:04 AM EST Narrative Resulting Agency Comment Spec In Lab Tal Eagle MD URINE ORDERABLES Performing Organization Address [facility] Co de Phone Number [facility] [address] * Calcium, urine, 24 hour (09/09/2017 6:15 AM EST) Ca Concentration, U24 9.5 mg/dL [facility] Calcium, 24 Hour Urine 133.0 50.0 - 300.0 mg/24hr [facility] Comment:Reference Range: 50. 0-300.0 mg/24 hour based on diet. 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
--- OUTSIDE RECORDS SUMMARY | 2024-04-04 14:04 | XMS_ITS | Encounter Summary ---
Author Organization [facility] [place] [address] Care Team Providers Care Orange Peel Operator Name Role Phone AdeelUrbano toscano Primary Care Provider Encounter Details Date Type Department Care Team (Late st Contact Info) Description 10/05/2017 Orders [place] [phone] Breezy Dale MD [facility] [place] [address] Right knee pain, unspecified chronicity Social History [...] PM EDT Office Visit Cardiology at [address] [phone] Jay Urban MD [facility] [place] [address] 04/15/2024 10:00 AM EDT Hospital Encounter Non[place] [address] Arrived documented as of this encounter Goals [...] chronicity documented in this encounter Care Teams Orange Peel Operator Relationship Specialty Start Date End Date Urbano Denis DO [facility] [address] [facility] [address] [place] [address] PCP - General 09/03/12 03/17/22 Ruchi Valles RN Nurse Clinic Transplant Surgery 07/30/15 documented as of this encounter
--- OUTSIDE RECORDS SUMMARY | 2024-04-04 14:04 | XMS_ITS | Encounter Summary ---
Author Organization [facility] [place] [address] Care Team Providers Care Computer Systems Software Engineer Name Role Phone Urbano Denis DO Primary Care Provider Encounter Details Date Type Department Care Team (Latest Contact Info) Description 06/18/2017 8:59 PM EST - 06/18/2017 11:59 PM EST [place] [address] Discharge Disposition: Home Social History Tobacco Use [...] PM EDT Office Visit Cardiology at [address] [phone] Jay Urban MD [facility] [place] [address] 04/15/2024 10:00 AM EDT Hospital Encounter Non[place] [phone] Arrived documented as of this encounter Goals [...] (06/18/2017 1:48 PM EST) Tacrolimus 6.9 ng/mL [facility] Comment: Trough therapeutic: ??5-15 ng/mL Performed by ultra-performance liquid chromatography tandem mass spectrometry (UPLCMS/MS). This test was developed and its performance characteristics determined by [facility]. It has not been cleared or [...] ORDERAB LES [facility] [place] [phone] documented in this encounter Visit Diagnoses Not on filedocumented in this encounter Care Teams Computer Systems Software Engineer Relationship Specialty Start Date End Date Urbano Denis DO [address] [place] [address] PCP - General 09/03/12 03/17/22 Ruchi Valles RN Nurse Clinic Transplant Surgery 07/30/15 documented as of this encounter
--- OUTSIDE RECORDS SUMMARY | 2024-04-04 14:04 | XMS_ITS | Encounter Summary ---
Author Organization [facility] [place] [address] Care Team Providers Care Merchandiser Seasonal Name Role Phone AdeelUrbano boland Primary Care Provider Encounter Details Date Type Department Care Team (Late st Contact Info) Description 05/26/2017 [place] [phone] Luis Carpio RN Social History Tobacco Use [...] Carpio RN - 05/26/2017 11:11 AM EST Small Wind Energy Installer called and spoke with Abbie from the [facility] [phone]. Abbie stated she will contact the Same Day Program to see what labs they were looking for. Luis Carpio RN-BSN Post Director Diversity [facility] Solid Organ Transplant * Telephone Encounter - [...] PM EDT Office Visit Cardiology at [address] [phone] Jay Urban MD [facility] [place] [address] 04/15/2024 10:00 AM EDT Hospital Encounter Non-Invasive [place] [phone] Arrived documented as of this encounter Goals [...] on filedocumented in this encounter Care Teams Merchandiser Seasonal Relationship Specialty Start Date End Date Urbano Denis DO [address] [place] [address] [address] [place] [address] PCP - General 09/03/12 03/17/22 Hai STANLEY,Ruchi Nurse Clinic Transplant Surgery 07/30/15 documented as of this encounter
--- OUTSIDE RECORDS SUMMARY | 2024-04-04 14:04 | XMS_ITS | Encounter Summary ---
[place] [address] Care Team Providers Care Buffing Line Set Up Worker Name Role Phone Urbano Denis DO Primary Care Provider Encounter Details Date Type Department Care Team (Latest Contact Info) Description 07/20/2017 7:32 PM EST - 07/20/2017 11:59 PM EST Hospital [place] [address] Discharge Disposition: Home Social History Tobacco Use [...] 1:40 PM EDT Office Visit Cardiology at [address] [phone] Jay Urban MD [facility] [place] [address] 04/15/2024 10:00 AM EDT Hospital Encounter Non-[place] [phone] Arrived documented as of this encounter Goals [...] (07/20/2017 8:30 PM EST) Tacrolimus 6.4 ng/mL [facility] Comment: Trough [...] CHEMISTRY ORDERAB LES [facility] [place] [address] documented in this encounter Visit Diagnoses Not on filedocumented in this encounter Care Teams Buffing Line Set Up Worker Relationship Specialty Start Date End Date Urbano Denis DO [address] [place] [address] PCP - General 09/03/12 03/17/22 Ruchi Valles RN Nurse Clinic Transplant Surgery 07/30/15 documented as of this encounter
--- OUTSIDE RECORDS SUMMARY | 2024-04-04 14:05 | XMS_ITS | Encounter Summary ---
Author Organization [facility] [place] [address] Care Team Providers Care Sheet Rock Installer Name Role Phone Urbano Denis DO Primary Care Provider Encounter Details Date Type Department Care Team (Late st Contact Info) Description 12/11/2016 Telephone [place] [address] Joanne Nogueira CMA Social History Tobacco Use [...] ?? Insurance: [employer] ?? Phone: ?? Web Specialist: [employer] ?? Reference #: [id number] ?? Outcome: [...] PM EDT Office Visit Cardiology at [address] [phone] Jay Urban MD [facility] [place] [address] 04/15/2024 10:00 AM EDT Hospital Encounter Non-Invasive [place] [address] Arrived documented as of this [...] on filedocumented in this encounter Care Teams Sheet Rock Installer Relationship Specialty Start Date End Date Urbano Denis DO [address] [place] [address] PCP - General 09/03/12 03/17/22 Ruchi Valles RN Nurse Clinic Transplant Surgery 07/30/15 documented as of this encounter
--- OUTSIDE RECORDS SUMMARY | 2024-04-04 14:05 | XMS_ITS | Encounter Summary ---
Author Organization [facility] [place] [address] Care Team Providers Care Classification Clerk Name Role Phone Urbano Denis DO Primary Care Provider Encounter Details Date Type Department Care Team (Latest Contact Info) Description 03/18/2017 9:20 AM EDT Laboratory Appointment Lab [address] [place] [address] Kidney replaced by transplant Social [...] PM EDT Office Visit Cardiology at [address] [phone] Jay Urban MD [facility] [address] [place] [address] 04/15/2024 10:00 AM EDT Hospital Encounter Non-[place]vasive [place] [address] Arrived documented as of this [...] indicated. Urobilinogen, Urine Dipstick 2.0(A) Normal mg/dL [facility] pH, Urn (dipstick) 6.0 5.0 - 8.0 [facility] Blood, Urine Dipstick Negative Negative mg/dL [facility] Ketone, Urine Dipstick Negative Negative mg/dL [facility] Nitrite, Urine Dipstick Negative Negative [facility] Leukocytes, Urine Dipstick Negative Negative [facility] Appearance, Urine Dipstick Clear Clear [facility] Specific [place] Urine Automated 1.026 1.002 - 1.030 [facility] Color, Urine Dipstick Yellow Yellow [facility] RBC, Urine 2 0 - 3 /HPF [facility] WBC, Urine Not Present 0 - 3 /HPF [facility] Bacteria, Urine Rare(A) None /HPF [facility] Reflex to Culture No [facility] Urine specimen obtained by clean catch procedure (specimen) 03/18/2017 9:38 AM EDT 03/18/2017 9:52 AM EDT Narrative Resulting Agency Comment Spec In Lab Tal Eagle MD URINE ORDERABLES Performing Organization Address City/[facility]/ZIP Co de Phone Number [facility] [place] [address] * (ABNORMAL) Protein/Creatinine Ratio, urine (03/18/2017 9:38 AM EDT) Creatinine, Urine 154 mg/dL [facility] Protein, Urine 32(H) 0 - 12 mg/dL [facility] Protein / Creatinine Ratio, Urine 0.[address] [facility] Urine specimen (specimen) 03/18/2017 9:38 AM EDT 03/18/2017 9:51 AM EDT Narrative Resulting Agency Comment Spec In Lab Tal Eagle MD URINE ORDERABLES Performing Organization Address City/[facility] Co de Phone Number [facility] [place] [address] * Differential, Automated (03/18/2017 9:36 AM EDT) Neutrophil % 59.8 % [facility] Neutrophil Absolute 4.57 1.70 - 6.10 x10(3)/[facility] Lymph % 26.6 % [facility] Lymphocytes Abs 2.0 0.9 - 3.2 x10(3)/[facility] Monocyte % 8.2 % [facility] Monocyte Abs 0.6 0.3 - 0.9 x10(3)/[facility] Eos % 3.8 % [facility] Eosinophils Abs 0.3 0.0 - 0.4 x10(3)/[facility] Basophil % 1.2 % [facility] Baso Absolute 0.1 0.0 - 0.1 x10(3)/[facility] Immature Gran % 0.40 % [facility] Comment: Immature granulocytes(IG's)percentage and absolute count will include metamyelocytes, myelocytes, and promyelocytes. Blood smears from CBCs yielding IG's will be scanned manually for concordance. If this scan disagrees with the automated IG or if promyelocytes are noted, a manual differential will be performed. Immature Gran Absolute 0.03 0.00 - 0.04 x10(3)/mcL [facility] Blood specimen (specimen) 03/18/2017 9:36 AM EDT 03/18/2017 9:46 AM EDT Narrative Resulting Agency Comment Spec In Lab Tal Eagle MD HEMATOLOGY ORDERA BLES [facility] [place] [address] * (ABNORMAL) Hemogram (03/18/2017 9:36 AM EDT) White Blood Cell 7.6 4.0 - 9.5 x10(3)/[facility] Red Blood Cell 5.42 4.58 - 5.54 x10(6)/[facility] Hemoglobin 17.1(H) 13.7 - 16.5 gm/dL [facility] Hematocrit 48.9(H) 40.5 - 48.5 % [facility] Mean Cell Volume 90.2 82.9 - 93.[address] [facility] Mean Cell Hemoglobin 31.5 27.5 - 32.[address] [facility] Mean Cell Hemoglobin Concentration 35.0 32.0 - 35.7 gm/dL [facility] Platelet 255 145 - 357 x10(3)/[facility] RDW Standard Deviation 42.0 36.0 - 45.0 [facility] RDW coefficient of variation 12.9 11.4 - 13.8 % [facility] Mean Platelet Volume 9.7 7.6 - 12.9 [facility] NRBC% auto 0.0 % [facility] NRBC Absolute 0.000 0.000 - 0.000 x10(3)/ L [facility] Blood specimen (specimen) 03/18/2017 9:36 AM EDT 03/18/2017 9:46 AM EDT Narrative Resulting Agency Comment Spec In Lab Tal Eagle MD HEMATOLOGY ORDERA BLES Performing Organization Address [facility] Co de Phone Number [facility] [place] [address] * Gold Tube HOLD (03/18/2017 9:36 AM EDT) Gold Hold Sample in lab. [facility] Blood specimen (specimen) 03/18/2017 9:36 AM EDT 03/18/2017 9:46 AM EDT Tal Eagle MD CHEMISTRY ORDERAB LES Performing Organization Address [facility] Co de Phone Number [facility] [place] [address] * Lavender Tube HOLD (03/18/2017 9:36 AM EDT) Lavender Hold Sample in lab. [facility] Blood specimen (specimen) 03/18/2017 9:36 AM EDT 03/18/2017 9:46 AM EDT Tal Eagle MD HEMATOLOGY ORDERA BLES Performing Organization Address [facility] Co de Phone Number [facility] [place] [address] * (ABNORMAL) Uric acid (03/18/2017 9:36 AM EDT) Uric Acid 9.3(H) 3.5 - 8.5 mg/dL [facility] Blood specimen (specimen) 03/18/2017 9:36 AM EDT 03/18/2017 9:46 AM EDT Narrative Resulting Agency Comment Spec In Lab Tal Eagle MD CHEMISTRY ORDERAB LES Performing Organization Address City/[facility] Co de Phone Number [facility] [place] [address] * Tacrolimus level (03/18/2017 9:36 AM EDT) Tacrolimus 4.4 ng/mL [facility] Comment: Trough therapeutic: ??5-15 ng/mL Performed by ultra-performance liquid chromatography tandem mass spectrometry (UPLCMS/MS). This test was developed and its performance characteristics determined by [facility]. It has not been cleared [...] ORDERAB LES Performing Organization Address [facility] de Phone Number [facility] [place] [address] * Reticulocyte Count (03/18/2017 9:36 AM EDT) Reticulocyte % 2.0 0.7 - 2.6 % [facility] Retic Abs # 0.110 0.030 - 0.120 x10(6)/mcL [facility] Immature Retic% 11.0 0.0 - 15.6 % [facility] Reticulated Hgb 36.1 31.3 - 40.[address] [facility] Blood specimen (specimen) 03/18/2017 9:36 AM EDT 03/18/2017 9:46 AM EDT Narrative Resulting Agency Comment Spec In Lab Tal Eagle MD HEMATOLOGY ORDERA BLES Performing Organization Address [facility] Co de Phone Number [facility] [place] [address] * Phosphorus (03/18/2017 9:36 AM EDT) Phosphorus 2.6 2.5 - 4.5 mg/dL [facility] Blood specimen (specimen) 03/18/2017 9:36 AM EDT 03/18/2017 9:46 AM EDT Narrative Resulting Agency Comment Spec In Lab Tal Eagle MD CHEMISTRY ORDERAB LES Performing Organization Address City/[facility]/ZIP Co de Phone Number [facility] [place] [address] * Magnesium (03/18/2017 9:36 AM EDT) Pathologist [facility] Magnesium 0.77 0.69 - 1.07 mmol/L [facility] Blood specimen (specimen) 03/18/2017 9:36 AM EDT 03/18/2017 9:46 AM EDT Narrative Resulting Agency Comment Spec In Lab Tal Eagle MD CHEMISTRY ORDERAB LES Performing Organization Address [facility] Co de Phone Number [facility] [place] [address] * (ABNORMAL) Comprehensive metabolic panel (non-fasting) (03/18/2017 9:36 AM EDT) Pathologist [facility] Glucose 116 65 - 199 mg/dL [facility] Comment:Diabetes: >=200 mg/d L plus symptoms Blood Urea Nitrogen 27(H) 10 - 20 mg/dL [facility] Creatinine 1.52(H) 0.80 - 1.50 mg/dL [facility] Comment: Please note that the pediatric reference intervals supplied above were not validated at [facility]. Results from pediatric patients should be interpreted in conjunction to the patient's age, height and muscle mass. Sodium 141 135 - 145 mmol/L [facility] [...] 15 mmol/L [facility] Calcium 9.8 8.5 - 10.5 mg/dL [facility] Protein, Total 7.7 6.1 - 8.0 gm/dL [facility] Albumin 4.3 3.2 - 5.2 gm/dL [facility] Aspartate Aminotransferase 17 0 - 39 unit/L [facility] Alanine Aminotransferase 17 0 - 55 unit/L [facility] Alkaline Phosphatase 65 40 - 120 unit/L [facility] Bilirubin, Total 2.4(H) 0.2 - 1.3 mg/dL [facility] Est Glomerular [...] the following links into your internet browser. [email or web address] Blood specimen (specimen) 03/18/2017 9:36 AM EDT 03/18/2017 9:46 AM EDT Narrative Resulting Agency Comment Spec In Lab Tal Eagle MD CHEMISTRY ORDERAB LES [facility] [place] [address] * Cholesterol, total (03/18/2017 9:36 AM EDT) Cholesterol, Total 150 <=239 mg/dL [facility] Lipid Interpretation See Note [facility] Comment: Lipid management should be guided by a patient? s ASCVD risk, goals and preferences. ACC/AHA Guidelines recommend high intensity statin if clinical ASCVD or LDL greater than or equal to 190 mg/dL. [email or web address]/MRB-[email or web address]-Jkighbusa Adults aged 40-75 with LDL 70-189 mg/dL should have their 10 year ASCVD risk estimated with the ACC/AHA ASCVD risk construction cost estimator http://tools.acc.org/SBEIH-Zejv-Kckzxdoxj/ Statin should be discussed if risk greater [...] CHEMISTRY ORDERAB LES [facility] [place] [address] * BKV Quant Blood (03/18/2017 9:36 AM EDT) BKV Blood Result Not Detected [facility] BKV Blood Interp BK Virus Plasma Result Interpretation Result: BK Virus not detected Specimen type: plasma Assay Range: 2.83-8.83 log copies/mL (6.8x10^2 - 6.8x10^8 copies/mL) Methods: Quantitative real-time polymerase chain reaction (PCR) of viral DNA isolated from plasma was performed using [employer] (formerly, [employer]) BKV analyte-specific reagents and the [employer] Fly[employer]ik 7500 FAST Real-Time PCR System. In addition, [...] Genomics and Advanced Technology (CGAT) Laboratory at [facility]. It has not been cleared or approved by the FDA. The laboratory is regulated under CLIA as qualified to perform high-complexity testing. This test is used for clinical purposes. It should not be regarded as investigational or for research. [facility] Comment: [VERIFIED DATE]03.26.17 Verified By:Bryan PhD, Sreedhar Bell Molecular Pathologist (Electronic Signature) Blood specimen (specimen) 03/18/2017 9:36 AM EDT 03/18/2017 10:31 AM EDT Narrative Resulting Agency Comment Spec In Lab Tal Eagle MD MOLECULAR ORDERAB LES [facility] [place] [address] documented in this encounter Visit Diagnoses Diagnosis Kidney replaced by transplant documented in this encounter Care Teams Classification Clerk Relationship Specialty Start Date End Date Urbano Denis DO [address] [place] [address] PCP - General 09/03/12 03/17/22 Ruchi Valles RN Nurse Clinic Transplant Surgery 07/30/15 documented as of this encounter
--- OUTSIDE RECORDS SUMMARY | 2024-04-04 14:05 | XMS_ITS | Encounter Summary ---
Author Organization [facility] [place] [address] Care Team Providers Care Premium Cancellation Clerk Name Role Phone AdeelUrbano boland Primary Care Provider Encounter Details Date Type Department Care Team (Late st Contact Info) Description 12/11/2016 Notes Only Solid [place] [address] Joanne Nogueira CMA Social History Tobacco Use [...] ?? Insurance: [employer] ?? Phone: ?? Casino Games Dealer: [employer] ?? Reference #: [id number] ?? Outcome: DENIED documented in this encounter Plan of Treatment Upcoming Encounters Date Type Department Care Team (Late st Contact Info) Description 04/08/2024 1:40 PM EDT Office Visit Cardiology at [address] [phone] Jay Urban MD [facility] [place] [address] 04/15/2024 10:00 AM EDT Hospital Encounter Non-Invasive [place] [address] Arrived documented as of this encounter Goals Goal Patient Goal Type Associated Problems Recent Progress Patient-Stated? Author Home Medication Compliance and Understanding Patient Facing Action Plan On track( 017 10:41 AM EDT) Selena Scott, [facility] Note: Patient Goal: Clear hepatitis C Timeframe to meet goal: within 12 weeks of therapy documented as of this encounter Visit Diagnoses Not on filedocumented in this encounter Care Teams Premium Cancellation Clerk Relationship Specialty Start Date End Date Urbano Denis DO [address] [place] [address] PCP - General 09/03/12 03/17/22 Ruchi Valles RN Nurse Clinic Transplant Surgery 07/30/15 documented as of this encounter
--- OUTSIDE RECORDS SUMMARY | 2024-04-04 14:05 | XMS_ITS | Encounter Summary ---
[place] [address] Care Team Providers Care Artist'S Manager Name Role Phone Urbano Denis DO Primary Care Provider [phone] Reason for Visit * Reason Onset Date Comments Medication Refill 12/12/2016 Encounter Details Date Type Department Care Team (Late st Contact Info) Description 12/10/2016 Refill Solid [place] [address] Joanne Nogueira CMA Social History Tobacco Use [...] - 12/12/2016 12:12 PM EDT Case # [id number] [facility] staff, Brandee. Medicare part C paid claim [...] as it would be much easierthan calling [facility] every month. mycophenylate Prograf Flomax Calcitriol K-Phos documented in this encounter Plan of Treatment Upcoming Encounters Date Type Department Care Team (Late st Contact Info) Description 04/08/2024 1:40 PM EDT Office Visit Cardiology at [address] [address] Jay Urban MD [facility] [place] [address] 04/15/2024 10:00 AM EDT Hospital Encounter Non-[place] [address] Arrived documented as of this encounter Goals [...] on filedocumented in this encounter Care Teams Artist'S Manager Relationship Specialty Start Date End Date Urbano Denis DO [address] [place] [address] PCP - General 09/03/12 03/17/22 Ruchi Valles RN Nurse Clinic Transplant Surgery 07/30/15 documented as of this encounter
--- OUTSIDE RECORDS SUMMARY | 2024-04-04 14:05 | XMS_ITS | Encounter Summary ---
[place] [address] Care Team Providers Care Attorney Law Clerk Name Role Phone Urbano Denis DO Primary Care Provider [phone] Encounter Details Date Type Department Care Team (Latest Contact Info) Description 02/17/2017 8:41 PM EDT - 02/17/2017 11:59 PM EDT Hospital [place] [address] Discharge Disposition: Home Social History Tobacco Use [...] PM EDT Office Visit Cardiology at [address] [address] Jay Urban MD [facility] [place] [address] 04/15/2024 10:00 AM EDT Hospital Encounter Non-[place] [phone] Arrived documented as of this encounter Goals Goal Patient Goal Type Associated Problems Recent Progress Patient-Stated? Author [facility] [place] Medication Compliance and Understanding Patient Facing Action [...] (02/17/2017 11:25 AM EDT) Tacrolimus 7.3 ng/mL [facility] Comment: Trough therapeutic: ??5-15 ng/mL Performed by ultra-performance liquid chromatography tandem mass spectrometry (UPLCMS/MS). This test was developed and its performance characteristics determined by [facility]. It has not been cleared or [...] MD CHEMISTRY ORDERAB LES [facility] [address] documented in this encounter Visit Diagnoses Not on filedocumented in this encounter Care Teams Attorney Law Clerk Relationship Specialty Start Date End Date Urbano Denis DO [address] [place] [address] PCP - General 09/03/12 03/17/22 Ruchi Valles RN Nurse Clinic Transplant Surgery 07/30/15 documented as of this encounter
--- OUTSIDE RECORDS SUMMARY | 2024-04-04 14:05 | XMS_ITS | Encounter Summary ---
Author Organization [facility] [address] Care Team Providers Care Intervention Specialist Name Role Phone Urbano Denis DO Primary Care Provider Encounter Details Date Type Department Care Team (Late st Contact Info) Description 12/12/2016 Notes [place] [address] Anabella Bright Social History Tobacco Use Types [...] Bright - 12/12/2016 3:41 PM EDT Transplant Thrasher Feeder Note: Patient had requested Prograf and Cellcept [...] PM EDT Office Visit Cardiology at [address] [address] Jay Urban MD [facility] [place] [address] 04/15/2024 10:00 AM EDT Hospital Encounter Non-[place] [address] Arrived documented as of this encounter Goals [...] on filedocumented in this encounter Care Teams Intervention Specialist Relationship Specialty Start Date End Date Urbano Denis DO [address] [place] [address] [address] [place] [address] PCP - General 09/03/12 03/17/22 Hai STANLEY,Ruchi Nurse Clinic Transplant Surgery 07/30/15 documented as of this encounter
--- OUTSIDE RECORDS SUMMARY | 2024-04-04 14:05 | XMS_ITS | Encounter Summary ---
Author Organization [facility] [place] [address] Care Team Providers Care Software Reliability Engineer Name Role Phone Urbano Denis DO Primary Care Provider Encounter Details Date Type Department Care Team (Late st Contact Info) Description 01/14/2017 Telephone [place] [phone] Joanne Nogueira CMA Social History Tobacco Use [...] with 3 refills, confirmed dose Invoice # [id number] * Telephone Encounter - Joanne Nogueira CMA - 01/14/2017 2:42 PM EDT Left message on refill request line asking for 90 day supply of tamsulosin 0.4mg be called into [facility]. documented in this encounter Plan of Treatment Upcoming Encounters Date Type Department Care Team (Late st Contact Info) Description 04/08/2024 1:40 PM EDT Office Visit Cardiology at [address] [phone] Jay Urban MD [facility] [place] [address] 04/15/2024 10:00 AM EDT Hospital Encounter [place] [address] Arrived documented as of this encounter Goals Goal Patient Goal Type Associated Problems Recent Progress Patient-Stated? Author [facility] Medication Compliance and Understanding Patient Facing Action Plan On track( 017 10:41 AM EDT) Selena Scott, [facility] Note: Patient Goal: Clear hepatitis C Timeframe to meet goal: within 12 weeks of therapy documented as of this encounter Visit Diagnoses Not on filedocumented in this encounter Care Teams Software Reliability Engineer Relationship Specialty Start Date End Date Urbano Denis DO [address] [place] [place] [address] [address] [facility] [address] [place] [address] PCP - General 09/03/12 03/17/22 Hai STANLEY,Ruchi Nurse Clinic Transplant Surgery 07/30/15 documented as of this encounter
--- OUTSIDE RECORDS SUMMARY | 2024-04-04 14:05 | XMS_ITS | Encounter Summary ---
[place] [address] Care Team Providers Care Driller Operator Name Role Phone Urbano Denis DO Primary Care Provider Encounter Details Date Type Department Care Team (Latest Contact Info) Description 12/18/2016 8:36 PM EDT - 12/18/2016 11:59 PM EDT [place] [address] Discharge Disposition: Home Social History Tobacco Use [...] PM EDT Office Visit Cardiology at [address] [phone] Jay Urban MD [facility] [place] [place] [address] 04/15/2024 10:00 AM EDT Hospital Encounter Non-Invasive [place] [phone] Arrived documented as of this encounter Goals Goal Patient Goal Type Associated Problems Recent Progress Patient-Stated? Author DH [place] Medication Compliance and Understanding Patient Facing Action [...] [facility] Blood specimen (specimen) Venous Draw / Unknown 12/18/2016 1:58 PM EDT 12/18/2016 9:10 PM EDT Tal Eagle MD HEMATOLOGY ORDERA BLES Performing Organization Address [facility] Co de Phone Number [facility] [place] [address] * Tacrolimus level (12/18/2016 1:58 PM EDT) Tacrolimus 5.9 ng/mL [facility] Comment: Trough therapeutic: ??5-15 ng/mL Performed by ultra-performance liquid chromatography tandem mass spectrometry (UPLCMS/MS). This test was developed and its performance characteristics determined by [facility]. It has not been cleared [...] MD CHEMISTRY ORDERAB LES Performing Organization Address [facility]/ZIP Co de Phone [place] [address] documented in this encounter Visit Diagnoses Not on filedocumented in this encounter Care Teams Driller Operator Relationship Specialty Start Date End Date Urbano Denis DO [address] [place] [address] PCP - General 09/03/12 03/17/22 Ruchi Valles RN Nurse Clinic Transplant Surgery 07/30/15 documented as of this encounter
--- OUTSIDE RECORDS SUMMARY | 2024-04-04 14:05 | XMS_ITS | Encounter Summary ---
Author Organization [facility] [address] Care Team Providers Care Student Financial Services Counselor Name Role Phone Adeel Urbano KIRYB Primary Care Provider Reason for Visit * Reason Comments Medication Refill Encounter Details Date Type Department Care Team (Late st Contact Info) Description 11/29/2016 Refill [place] [phone] Que Amaro MD [facility] [place] [address] Social History Tobacco Use Types Packs/Day Years [...] PM EDT Office Visit Cardiology at [address] [phone] Jay Urban MD [facility] [place] [address] 04/15/2024 10:00 AM EDT Hospital Encounter [place] [phone] Arrived documented as of this encounter Goals [...] on filedocumented in this encounter Care Teams Student Financial Services Counselor Relationship Specialty Start Date End Date Urbano Denis DO [address] [place] [address] [address] [facility] 1 [place] [address] PCP - General 09/03/12 03/17/22 Ruchi Valles RN Nurse Clinic Transplant Surgery 07/30/15 documented as of this encounter
--- OUTSIDE RECORDS SUMMARY | 2024-04-04 14:05 | XMS_ITS | Encounter Summary ---
Author Organization [facility] [place] [address] Care Team Providers Care Hotbed Operator Name Role Phone Adeel Urbano KIRBY Primary Care Provider Encounter Details Date Type Department Care Team (Late st Contact Info) Description 03/04/2017 Abstract [place] [address] Clark Bro Social History Tobacco Use Types [...] PM EDT Office Visit Cardiology at [address] [phone] Jay Urban MD [facility] [place] [address] 04/15/2024 10:00 AM EDT Hospital Encounter Non-Invasive [place] [address] Arrived documented as of this [...] on filedocumented in this encounter Care Teams Hotbed Operator Relationship Specialty Start Date End Date Urbano Denis DO [facility] [address] [place] [address] PCP - General 09/03/12 03/17/22 Ruchi Valles RN Nurse Clinic Transplant Surgery 07/30/15 documented as of this encounter
--- OUTSIDE RECORDS SUMMARY | 2024-04-04 14:05 | XMS_ITS | Encounter Summary ---
[place] [address] Care Team Providers Care Research Program Coordinator Name Role Phone Urbano Denis DO Primary Care Provider [phone] Encounter Details Date Type Department Care Team (Latest Contact Info) Description 04/16/2017 8:42 PM EDT - 04/16/2017 11:59 PM EDT Hospital [place] [address] Discharge Disposition: Home Social History Tobacco Use [...] PM EDT Office Visit Cardiology at [address] [phone] Jay Urban MD [facility] [place] [address] 04/15/2024 10:00 AM EDT Hospital Encounter Non[place] [phone] Arrived documented as of this encounter Goals Goal Patient Goal Type Associated Problems Recent Progress Patient-Stated? Author [facility] Medication Compliance and Understanding Patient Facing Action Plan On track( 017 10:41 AM EDT) No Selena Cisneros [facility] Note: Patient Goal: [...] developed and its performance characteristics determined by [facility]. It has not been cleared [...] ORDERAB LES [facility] [place] [address] documented in this encounter Visit Diagnoses Not on filedocumented in this encounter Care Teams Research Program Coordinator Relationship Specialty Start Date End Date Urbano Denis DO [address] [place] [address] PCP - General 09/03/12 03/17/22 Ruchi Valles RN Nurse Clinic Transplant Surgery 07/30/15 documented as of this encounter
--- OUTSIDE RECORDS SUMMARY | 2024-04-04 14:05 | XMS_ITS | Encounter Summary ---
[place] [address] Care Team Providers Care Milk Bottler Name Role Phone Urbano Denis DO Primary Care Provider [phone] Encounter Details Date Type Department Care Team (Latest Contact Info) Description 01/15/2017 8:31 PM EDT - 01/15/2017 11:59 PM EDT Hospital En[place] [address] Discharge Disposition: Home Social History Tobacco Use [...] PM EDT Office Visit Cardiology at [address] [phone] Jay Urban MD [facility] [place] [address] 04/15/2024 10:00 AM EDT Hospital Encounter Non-[place] [phone] Arrived documented as of this encounter Goals Goal Patient Goal Type Associated Problems Recent Progress Patient-Stated? Author DH [place] Medication Compliance and Understanding Patient Facing Action [...] (01/15/2017 11:20 AM EDT) Tacrolimus 8.1 ng/mL [facility] Comment: Trough therapeutic: ??5-15 ng/mL Performed by ultra-performance liquid chromatography tandem mass spectrometry (UPLCMS/MS). This test was developed and its performance characteristics determined by [facility]. It has not been cleared [...] CHEMISTRY ORDERAB LES [facility] [place] [address] documented in this encounter Visit Diagnoses Not on filedocumented in this encounter Care Teams Milk Bottler Relationship Specialty Start Date End Date Urbano Denis DO [address] [place] [address] PCP - General 09/03/12 03/17/22 Ruchi Valles RN Nurse Clinic Transplant Surgery 07/30/15 documented as of this encounter
--- OUTSIDE RECORDS SUMMARY | 2024-04-04 14:05 | XMS_ITS | Encounter Summary ---
Author Organization [facility] [place] [address] Care Team Providers Care Mid Level Provider Name Role Phone AdeelUrbano toscano Primary Care Provider Reason for Visit * Reason Onset Date Comments Medication Refill 12/03/2016 Encounter Details Date Type Department Care Team (Late st Contact Info) Description 12/03/2016 Refill [place] [address] Samia Escalante, RN Social History Tobacco Use [...] PM EDT Office Visit Cardiology at [address] [phone] Jay Urban MD [facility] [place] [address] 04/15/2024 10:00 AM EDT Hospital Encounter Non-Invasive [place] [address] Arrived documented as of this encounter Goals Goal Patient Goal Type Associated Problems Recent Progress Patient-Stated? Author DH Home Medication Compliance and Understanding Patient Facing Action Plan On track( 017 10:41 AM EDT) Selena Scott, [facility] Note: Patient Goal: Clear hepatitis C Timeframe to meet goal: within 12 weeks of therapy documented as of this encounter Visit Diagnoses Not on filedocumented in this encounter Care Teams Mid Level Provider Relationship Specialty Start Date End Date Urbano Denis DO [address] [place] [address] PCP - General 09/03/12 03/17/22 Ruchi Valles RN Nurse Clinic Transplant Surgery 07/30/15 documented as of this encounter
--- OUTSIDE RECORDS SUMMARY | 2024-04-04 14:05 | XMS_ITS | Encounter Summary ---
Author Organization [facility] [place] [address] Care Team Providers Care Legal Recovery Specialist Name Role Phone Adeel Urbano KIRBY Primary Care Provider Encounter Details Date Type Department Care Team (Late st Contact Info) Description 12/03/2016 Telephone [place] [phone] Samia Escalante, RN Social History Tobacco Use [...] that we update his prescription with the [facility] which I have done. Pt stated understanding of plan of care. No further questions at this time. Advised to call with additional concerns. Samia Escalante, RN Post Sap Hana Architect [facility] Solid Organ Transplant documented in this encounter Plan of Treatment Upcoming Encounters Date Type Department Care Team (Late st Contact Info) Description 04/08/2024 1:40 PM EDT Office Visit Cardiology at [address] [phone] Jay Urban MD [facility] [place] [address] 04/15/2024 10:00 AM EDT Hospital Encounter Non-[place] [phone] Arrived documented as of this encounter Goals [...] on filedocumented in this encounter Care Teams Legal Recovery Specialist Relationship Specialty Start Date End Date Urbano Denis DO [address] [place] [address] PCP - General 09/03/12 03/17/22 Hai STANLEY,Ruchi Nurse Clinic Transplant Surgery 07/30/15 documented as of this encounter
--- OUTSIDE RECORDS SUMMARY | 2024-04-04 14:05 | XMS_ITS | Encounter Summary ---
Author Organization [facility] [place] [address] Care Team Providers Care Lace Mender Name Role Phone AdeelUrbano toscano Primary Care Provider Reason for Visit * Reason Onset Date Comments Medication Refill 11/10/2016 Encounter Details Date Type Department Care Team (Late st Contact Info) Description 11/10/2016 Refill [place] [address] Samia Escalante, RN Social History [...] PM EDT Office Visit Cardiology at [address] [phone] Jay Urban MD [facility] [place] [address] 04/15/2024 10:00 AM EDT Hospital Encounter Non-[place] [address] Arrived documented as of this encounter Goals Goal Patient Goal Type Associated Problems Recent Progress Patient-Stated? Author DH Home Medication Compliance and Understanding Patient Facing Action Plan On track( 017 10:41 AM EDT) Selena Scott, [facility] Note: Patient Goal: Clear hepatitis C Timeframe to meet goal: within 12 weeks of therapy documented as of this encounter Visit Diagnoses Not on filedocumented in this encounter Care Teams Lace Mender Relationship Specialty Start Date End Date Urbano Denis DO [address] [place] [address] PCP - General 09/03/12 03/17/22 Ruchi Valles RN Nurse Clinic Transplant Surgery 07/30/15 documented as of this encounter
--- OUTSIDE RECORDS SUMMARY | 2024-04-04 14:05 | XMS_ITS | Encounter Summary ---
Author Organization [facility] [place] [address] Care Team Providers Care Jack Machine Operator Name Role Phone Urbano Denis DO Primary Care Provider [phone] Encounter Details Date Type Department Care Team (Latest Contact Info) Description 10/14/2016 8:09 PM EDT - 10/14/2016 11:59 PM EDT Hospital [place] [address] Discharge Disposition: Home Social History Tobacco Use [...] Start Date End Date ledipasvir-sofosbuvir 90-400 mg TabletIndications:Director Audience Marketing spencer hepatitis C without hepatic coma Take [...] PM EDT Office Visit Cardiology at [address] [phone] Jay Urabn MD [facility] [place] [place] [address] 04/15/2024 10:00 AM EDT Hospital Encounter Non-[place] [address] Arrived documented as of this encounter Goals [...] (10/14/2016 10:20 AM EDT) Tacrolimus 3.0 ng/mL [facility] Comment: Trough therapeutic: ??5-15 ng/mL Performed by ultra-performance liquid chromatography tandem mass spectrometry (UPLCMS/MS). This test was developed and its performance characteristics determined by [facility]. It has not been cleared [...] CHEMISTRY ORDERAB LES [facility] [place] [address] documented in this encounter Visit Diagnoses Not on filedocumented in this encounter Care Teams Jack Machine Operator Relationship Specialty Start Date End Date Urbano Denis DO [address] [place] [address] PCP - General 09/03/12 03/17/22 Ruchi Valles RN Nurse Clinic Transplant Surgery 07/30/15 documented as of this encounter
--- OUTSIDE RECORDS SUMMARY | 2024-04-04 14:05 | XMS_ITS | Encounter Summary ---
Author Organization Replaced By [facility] Address [facility] Joel [facility] [address] Care Team Providers Care Rock Drill Operator Name Role Phone Urbano Denis DO Primary Care Provider [phone] Encounter Details Date Type Department Care Team (Late st Contact Info) Description 12/19/2016 Telephone [place] [address] Herlinda Bell, [facility] [place] [address] Social History Tobacco Use Types Packs/Day Years [...] RD - 12/19/2016 11:30 AM EDT This mortgage underwriter reviewed phosphorus-rich foods with patient. He [...] PM EDT Office Visit Cardiology at [address] [phone] Jay Urban MD [facility] [place] [address] 04/15/2024 10:00 AM EDT Hospital Encounter Non-Invasive [place] [phone] Arrived documented as of this encounter Goals [...] on filedocumented in this encounter Care Teams Rock Drill Operator Relationship Specialty Start Date End Date Urbano Denis DO [address] [place] [address] PCP - General 09/03/12 03/17/22 Ruchi Valles RN Nurse Clinic Transplant Surgery 07/30/15 documented as of this encounter
--- OUTSIDE RECORDS SUMMARY | 2024-04-04 14:05 | XMS_ITS | Encounter Summary ---
Author Organization [facility] [place] [address] Care Team Providers Care Change Management Expert Name Role Phone Adeel Urbano KIRBY Primary Care Provider [phone] Reason for Visit * Reason Onset Date Comments Medication Refill 03/25/2017 Encounter Details Date Type Department Care Team (Late st Contact Info) Description 03/24/2017 Refill [place] [address] Tal Eagle MD [facility] [place] [address] Social History Tobacco Use Types Packs/Day Years [...] for bacterium 400-80 [facility] supply documented in this encounter Plan of Treatment Upcoming Encounters Date Type Department Care Team (Late st Contact Info) Description 04/08/2024 1:40 PM EDT Office Visit Cardiology at [address] [phone] Jay Urban MD [facility] [place] [address] 04/15/2024 10:00 AM EDT Hospital Encounter Non-Invasive [place] [phone] Arrived documented as of this encounter Goals [...] on filedocumented in this encounter Care Teams Change Management Expert Relationship Specialty Start Date End Date Urbano Denis DO [address] [place] [address] PCP - General 09/03/12 03/17/22 Ruchi Valles RN Nurse Clinic Transplant Surgery 07/30/15 documented as of this encounter
--- OUTSIDE RECORDS SUMMARY | 2024-04-04 14:05 | XMS_ITS | Encounter Summary ---
Author Organization [facility] [place] [address] Care Team Providers Care Manager Environmental Health Name Role Phone Urbano Denis DO Primary Care Provider [phone] Encounter Details Date Type Department Care Team (Latest Contact Info) Description 11/12/2016 8:46 PM EDT - 11/12/2016 11:59 PM EDT [place] [address] Discharge Disposition: Home Social History Tobacco Use [...] PM EDT Office Visit Cardiology at [address] [phone] Jay Urban MD [facility] [place] [address] 04/15/2024 10:00 AM EDT Hospital Encounter Non-Invasive [place] [address] Arrived documented as of this encounter Goals [...] PM EDT) Lavender Hold Sample in lab. [facility] Blood specimen (specimen) No Charge / Unknown 11/12/2016 8:52 PM EDT 11/12/2016 8:54 PM EDT Tal Eagle MD HEMATOLOGY ORDERA BLES Performing Organization Address [facility]/ZIP Co de Phone Number [facility] [place] [address] * Tacrolimus level (11/12/2016 8:52 PM EDT) Tacrolimus <3.0 ng/mL [facility] Comment: Trough therapeutic: ??5-15 ng/mL Performed by ultra-performance liquid chromatography tandem mass spectrometry (UPLCMS/MS). This test was developed and its performance characteristics determined by [facility]. It has not been cleared [...] MD CHEMISTRY ORDERAB LES Performing Organization Address City/[facility]/ZIP Co de Phone Number [facility] [place] [address] documented in this encounter Visit Diagnoses Not on filedocumented in this encounter Care Teams Manager Environmental Health Relationship Specialty Start Date End Date Urbano Denis DO [address] [facility] [facility] [place] [address] PCP - General 09/03/12 03/17/22 Ruchi Valles RN Nurse Clinic Transplant Surgery 07/30/15 documented as of this encounter
--- OUTSIDE RECORDS SUMMARY | 2024-04-04 14:05 | XMS_ITS | Encounter Summary ---
Author Organization [facility] [place] [address] Care Team Providers Care Fruit And Vegetable Parer Name Role Phone Urbano Denis DO Primary Care Provider Encounter Details Date Type Department Care Team (Latest Contact Info) Description 05/19/2017 9:06 PM EST - 05/19/2017 11:59 PM EST Hospital [place] [address] Discharge Disposition: Home Social History Tobacco Use [...] Office Visit Cardiology at [address] [address] Jay Urban MD [facility] [place] [address] 04/15/2024 10:00 AM EDT Hospital Encounter Non-[place] [phone] Arrived documented as of this encounter Goals Goal Patient Goal Type Associated Problems Recent Progress Patient-Stated? Author [facility] Medication Compliance and Understanding Patient Facing Action Plan On track( 017 10:41 AM EDT) Selena Scott [facility] Note: Patient Goal: Clear hepatitis C Timeframe to meet goal: within 12 weeks of therapy documented as of this encounter Procedures Procedure Name Priority Date/Time Associated Diagnosis Comments TACROLIMUS LEVEL Routine 05/19/2017 11:1 0 AM EST documented in this encounter Results * Tacrolimus level (05/19/2017 11:10 AM EST) Tacrolimus 4.6 ng/mL [facility] Comment: Trough therapeutic: ??5-15 ng/mL Performed by ultra-performance liquid chromatography tandem mass spectrometry (UPLCMS/MS). This test was developed and its performance characteristics determined by [facility]. It has not been cleared or [...] MD CHEMISTRY ORDERAB LES [facility] [place] [address] documented in this encounter Visit Diagnoses Not on filedocumented in this encounter Care Teams Fruit And Vegetable Parer Relationship Specialty Start Date End Date Urbano Denis DO [address] [place] [address] PCP - General 09/03/12 03/17/22 Ruchi Valles RN Nurse Clinic Transplant Surgery 07/30/15 documented as of this encounter
--- OUTSIDE RECORDS SUMMARY | 2024-04-04 14:05 | XMS_ITS | Encounter Summary ---
Author Organization [facility] Address [facility] [place] [address] Care Team Providers Care Library Science Instructor Name Role Phone Urbano Denis DO Primary Care Provider [phone] Encounter Details Date Type Department Care Team (Late st Contact Info) Description 09/29/2016 Telephone [place] [address] Joanne Fernandes, RN [facility] [place] [address] Social History Tobacco Use Types Packs/Day Years [...] PM EDT Office Visit Cardiology at [address] [phone] Jay Urban MD [facility] [place] [place] [address] 04/15/2024 10:00 AM EDT Hospital Encounter [place] [address] Arrived documented as of this [...] on filedocumented in this encounter Care Teams Library Science Instructor Relationship Specialty Start Date End Date Urbano Denis DO [address] [place] [address] PCP - General 09/03/12 03/17/22 Ruchi Valles RN Nurse Clinic Transplant Surgery 07/30/15 documented as of this encounter
--- OUTSIDE RECORDS SUMMARY | 2024-04-04 14:05 | XMS_ITS | Encounter Summary ---
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 Wagner, edited the above note to reflect my assessment and examination and formulated the recommendations which accurately reflect mine. * Herlinda Bell, RD - 09/15/2016 10:00 AM EDT [facility] Post Transplant Nutrition Follow Up Date: 09/16/2016 Patient: Ethel Akins Transplant Date: 09/16/15 [place] organ UNOS diagnosis: Transplant: Mr. Ethel Akins [...] 106 09/15/2016 LDL 64 09/15/2016 Assessment: This commercial real estate underwriter reviewed patient's labs with him and his [...] to see us in 6 months. This commercial real estate underwriter encouraged patient to continue with decreased sweets [...] PM EDT Office Visit Cardiology at [address] [address] Jay Urban MD [facility] [place] [address] 04/15/2024 10:00 AM EDT Hospital Encounter [place] [address] Arrived documented as of this [...] [facility] Protein, Urine Dipstick Negative Negative mg/dL [facility] Bilirubin, [...] HOSPITAL LABORATORY Leukocytes, Urine Dipstick Negative Negative [facility] Appearance, Urine Dipstick Clear Clear [facility] Specific [place] Urine Automated 1.016 1.002 - 1.030 [facility] Color, Urine Dipstick Yellow Yellow [facility] RBC, Urine 1 0 - 3 /HPF [facility] WBC, Urine 1 0 - 3 /HPF [facility] Reflex to Culture No [facility] Urine specimen obtained by clean catch procedure (specimen) 09/15/2016 9:57 AM EDT 09/15/2016 10:07 AM EDT Narrative Resulting Agency Comment Spec In Lab Tal Eagle MD URINE ORDERABLES Performing Organization Address [facility] Co de Phone Number [facility] [place] [address] * (ABNORMAL) Protein/Creatinine Ratio, urine (09/15/2016 9:57 AM EDT) Creatinine, Urine 83 mg/dL [facility] Protein, Urine 14(H) 0 - 12 mg/dL [facility] Protein / Creatinine Ratio, Urine 0.2 ratio [facility] Urine specimen (specimen) 09/15/2016 9:57 AM EDT 09/15/2016 10:13 AM EDT Narrative Resulting Agency Comment Spec In Lab Tal Eagle MD URINE ORDERABLES Performing Organization Address City/[facility]/ZIP Co de Phone Number [facility] [place] [address] * Phosphorus, urine, random (09/15/2016 9:57 AM EDT) Phosphorus, Urine 56.0 mg/dL [facility] Urine specimen (specimen) 09/15/2016 9:57 AM EDT 09/15/2016 10:13 AM EDT Narrative Resulting Agency Comment Spec In Lab Tal Eagle MD URINE ORDERABLES Performing Organization Address [facility] Co de Phone Number [facility] [address] * Calcium Creatinine Ratio, random urine (09/15/2016 9:57 AM EDT) Calcium, Urine 13.0 mg/dL [facility] Creatinine, Urine 83 mg/dL [facility] Calcium / Creatinine Ratio, Urine 0.16 ratio [facility] Urine specimen (specimen) 09/15/2016 9:57 AM EDT 09/15/2016 10:13 AM EDT Narrative Resulting Agency Comment Spec In Lab Tal Eagle MD URINE ORDERABLES Performing Organization Address [facility] Co de Phone Number [facility] [address] * (ABNORMAL) Vitamin D, 25-Hydroxy (09/15/2016 9:38 AM EDT) Vitamin D Total 25 OH 16(L) 30 - 100 ng/mL [facility] [...] be considered to be insufficient or deficient. [email or web address] The IDS iSYS Vitamin D Immunoassay detects both 25-OH Vitamin D2 and 25-OH Vitamin D3, but only a total Vitamin D concentration is reported. Blood specimen (specimen) 09/15/2016 9:38 AM EDT 09/15/2016 12:08 PM EDT Narrative Resulting Agency Comment Spec In Lab Tal Eagle MD CHEMISTRY ORDERAB LES Performing Organization Address [facility]/ZIP Co de Phone Number [facility] [place] [address] * Uric acid (09/15/2016 9:38 AM EDT) Uric Acid 7.7 3.5 - 8.5 mg/dL [facility] Blood specimen (specimen) 09/15/2016 9:38 AM EDT 09/15/2016 9:44 AM EDT Narrative Resulting Agency Comment Spec In Lab Tal Eagle MD CHEMISTRY ORDERAB LES Performing Organization Address [facility] Co de Phone Number [facility] [place] [address] * Tacrolimus level (09/15/2016 9:38 AM EDT) Tacrolimus 3.4 ng/mL [facility] Comment: Trough therapeutic: ??5-15 ng/mL Performed by ultra-performance liquid chromatography tandem mass spectrometry (UPLCMS/MS). Blood specimen (specimen) 09/15/2016 9:38 AM EDT 09/15/2016 10:07 AM EDT Narrative Resulting Agency Comment Spec In Lab Tal Eagle MD CHEMISTRY ORDERAB LES Performing Organization Address [facility] Co de Phone Number [facility] [place] [address] * PTH (09/15/2016 9:38 AM EDT) Parathyroid Hormone 36 15 - 65 pg/mL [facility] Blood specimen (specimen) 09/15/2016 9:38 AM EDT 09/15/2016 9:44 AM EDT Narrative Resulting Agency Comment Spec In Lab Tal Eagle MD CHEMISTRY ORDERAB LES Performing Organization Address City/[facility]/ZIP Co de Phone Number [facility] [place] [address] * Phosphorus (09/15/2016 9:38 AM EDT) Phosphorus 3.1 2.5 - 4.5 mg/dL [facility] Blood specimen (specimen) 09/15/2016 9:38 AM EDT 09/15/2016 9:44 AM EDT Narrative Resulting Agency Comment Spec In Lab Tal Eagle MD CHEMISTRY ORDERAB LES Performing Organization Address City/[facility]/ZIP Co de Phone Number [facility] [place] [address] * Magnesium (09/15/2016 9:38 AM EDT) Magnesium 0.77 0.69 - 1.07 mmol/L [facility] Blood specimen (specimen) 09/15/2016 9:38 AM EDT 09/15/2016 9:44 AM EDT Narrative Resulting Agency Comment Spec In Lab Tal Eagle MD CHEMISTRY ORDERAB LES Performing Organization Address City/[facility] Co de Phone Number [facility] [place] [address] * (ABNORMAL) Lipid Panel (09/15/2016 9:38 AM EDT) Cholesterol, Total 123 <=239 mg/dL [facility] Triglyceride 106 <=199 mg/dL [facility] HDL Cholesterol 38(L) >=40 mg/dL [facility] LDL Cholesterol 64 <=190 mg/dL [facility] Cholesterol/HDL Ratio 3.2 ratio [facility] Lipid Interpretation See Note [facility] Comment: Lipid management should be guided by a patient? s ASCVD risk, goals and preferences. ACC/AHA Guidelines recommend high intensity statin if clinical ASCVD or LDL greater than or equal to 190 mg/dL. http://circ.ahajournals.org/content/early/.cir.1983956085.45275.7a Adults aged 40-75 with LDL 70-189 mg/dL should have their 10 year ASCVD risk estimated with the ACC/AHA ASCVD risk production cost estimator http://tools.acc.org/RKOEZ-Aqka-Jervzftyd/ Statin should be discussed if risk greater [...] ORDERAB LES Performing Organization Address [facility] Co de Phone Number [facility] [place] [address] * Lavender Tube HOLD (09/15/2016 9:38 AM EDT) Lavender Hold Sample in lab. [facility] Blood specimen (specimen) 09/15/2016 9:38 AM EDT 09/15/2016 9:44 AM EDT Tal Eagle MD HEMATOLOGY ORDERA BLES Performing Organization Address [facility] Co de Phone Number [facility] [place] [address] * (ABNORMAL) Hemoglobin A1c (09/15/2016 9:38 AM EDT) Hemoglobin A1c 6.9(H) 4.3 - 5.6 % [facility] [...] Mellitus, Diabetes Care 2013; 36: Suppl. 1, O22-53 Estimated Average Glucose 151 mg/dL [facility] Comment: eAG equivalents for HbA1c percentages: HbA1c(%) ?eAG(mg/dL) 6.0 ?126 6.5 ?140 7.0 ?154 7.5 ?169 8.0 ?183 8.5 ?197 9.0 ?212 9.5 ?226 10.0 ? 240 Limitations: The eAG calculation has not been validated on women, individuals below 18 years old and above 70 years old, and individuals with hemoglobinopathies. Additional resources are available on the ADA website: http://Joyhound.com/DHMCadacalc Harjeet MENDOSA, Chanel J, Philip R, et al. ??Translating the A1C assay into estimated average glucose values. ??Diabetes Care 2008:31(8):3809-9792. Blood specimen (specimen) 09/15/2016 9:38 AM EDT 09/15/2016 9:44 AM EDT Narrative Resulting Agency Comment Spec In Lab Tal Eagle MD CHEMISTRY ORDERAB LES [facility] [address] * Gold Tube HOLD (09/15/2016 9:38 AM EDT) Gold Hold Sample in lab. [facility] Blood specimen (specimen) 09/15/2016 9:38 AM EDT 09/15/2016 9:44 AM EDT Tal Eagle MD CHEMISTRY ORDERAB LES [facility] [address] * (ABNORMAL) CMP w/fasting Glucose (09/15/2016 9:38 AM EDT) Glucose Fasting 130(H) 65 - 99 mg/dL [facility] [...] of Diabetes Mellitus, Position Statement from the [place] Diabetes Association. ??Diabetes Care, Volume 33, Supplement 1, Jul 2009 Blood Urea Nitrogen 20 10 - 20 mg/dL [facility] Creatinine 1.30 0.80 - 1.50 mg/dL [facility] Comment: Please note that the pediatric reference intervals supplied above were not validated at [facility]. Results from pediatric patients should be interpreted in conjunction to the patient's age, height and muscle mass. Sodium 137 135 - 145 mmol/L [facility] Potassium 3.6 3.5 - 5.0 mmol/L [facility] [...] 8.0 gm/dL [facility] Albumin 4.0 3.2 - 5.2 gm/dL [facility] Aspartate Aminotransferase 15 0 - 39 unit/L [facility] Alanine Aminotransferase 16 0 - 55 unit/L [facility] Alkaline Phosphatase 62 40 - 120 unit/L [facility] Bilirubin, Total 1.2 0.2 - 1.3 mg/dL [facility] Bilirubin, Direct 0.3 0.0 - 0.3 mg/dL [facility] Est Glomerular Filtration Rate 55(L) >=60 [facility] Comment: This [...] the following links into your internet browser. [email or web address] Blood specimen (specimen) 09/15/2016 9:38 AM EDT 09/15/2016 9:44 AM EDT Narrative Resulting Agency Comment Spec In Lab Tal Eagle MD CHEMISTRY ORDERAB LES [facility] [place] [address] * (ABNORMAL) 1,25-dihydroxycholecalciferol (09/15/2016 9:38 AM EDT) Vit D 1,25 Dihydroxy (NOVEMBER) 65(H) 18 - 64 pg/mL [facility] Comment: ADDITIONAL INFORMATION This test was developed and its performance characteristics determined by [facility] in a manner consistent with CLIA requirements. This test has not been cleared or approved by the U.S. Food and Drug Administration. Test Performed by: [facility] - [address] [address] Blood specimen (specimen) 09/15/2016 9:38 AM EDT 09/15/2016 11:07 AM EDT Narrative Resulting Agency Comment Spec In Lab Tal Eagle MD LAB SEND OUT ORDBhargav KORYLENORE Performing Organization Address City/[facility]/ZIP Co de Phone Number [facility] [place] [address] * Uric acid, urine, 24 hour (09/15/2016 6:00 AM EDT) U24 Uric Conc 38.4 mg/dL [facility] Uric Acid, 24 Hour Urine 0.58 0.25 - 0.80 gm/24hr [facility] Urine specimen (specimen) 09/15/2016 6:00 AM EDT 09/15/2016 11:16 AM EDT Narrative Resulting Agency Comment Spec In Lab Tal Eagle MD URINE ORDERABLES Performing Organization Address [facility]/ZIP Co de Phone Number [facility] [place] [address] * (ABNORMAL) Protein, urine, 24 hour (09/15/2016 6:00 AM EDT) Protein Concentration, U24 14 <=80 mg/dL [facility] Protein, 24 Hour Urine 0.21(H) <=0.15 gm/24hr [facility] Urine specimen (specimen) 09/15/2016 6:00 AM EDT 09/15/2016 11:16 AM EDT Narrative Resulting Agency Comment Spec In Lab Tal Eagle MD URINE ORDERABLES Performing Organization Address [facility] Co de Phone Number [facility] [place] [address] * Phosphorus, urine, 24 hour (09/15/2016 6:00 AM EDT) Phosphorus Concentration, U24 70.2 mg/dL [facility] Phosphorus, 24 Hour Urine 1.1 0.4 - 1.3 gm/24hr [facility] Urine specimen (specimen) 09/15/2016 6:00 AM EDT 09/15/2016 11:16 AM EDT Narrative Resulting Agency Comment Spec In Lab Tal Eagle MD URINE ORDERABLES Performing Organization Address [facility] Co de Phone Number [facility] [place] [address] * Creatinine, urine, 24 hour (09/15/2016 6:00 AM EDT) Cre Concentration, U24 113 mg/dL [facility] Creatinine, 24 Hour Urine 1.70 0.80 - 1.90 gm/24hr [facility] Urine specimen (specimen) 09/15/2016 6:00 AM EDT 09/15/2016 11:16 AM EDT Narrative Resulting Agency Comment Spec In Lab Tal Eagle MD URINE ORDERABLES Performing Organization Address City/[facility]/ZIP Co de Phone Number [facility] [place] [address] * Creatinine Clearance, urine, 24 hour (09/15/2016 6:00 AM EDT) Creatinine Clearance, 24 Hour Urine 91 90 - 139 mL/min [facility] Cre Concentration, U24 113 mg/dL [facility] Creatinine, 24 Hour Urine 1.70 0.80 - 1.90 gm/24hr [facility] Urine specimen (specimen) 09/15/2016 6:00 AM EDT 09/15/2016 11:16 AM EDT Narrative Resulting Agency Comment Spec In Lab Tal Eagle MD URINE ORDERABLES Performing Organization Address [facility] Co de Phone Number [facility] [place] [address] * Calcium, urine, 24 hour (09/15/2016 6:00 AM EDT) Ca Concentration, U24 12.9 mg/dL [facility] Calcium, 24 Hour Urine 193.5 50.0 - 300.0 mg/24hr [facility] Comment:Reference Range: 50. 0-300.0 mg/24 hour based on diet. 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
--- OUTSIDE RECORDS SUMMARY | 2024-04-04 14:05 | XMS_ITS | Encounter Summary ---
Author Organization [facility] [place] [address] Care Team Providers Care Flight Manager Name Role Phone Urbano Denis DO Primary Care Provider [phone] Reason for Visit * Reason Comments Skin Lesion * Consultation (Routine) - Closed Specialty Diagnoses / Procedures Referred By Humberto flor Referred To Contact Dermatology Diagnoses Atypical nevus of face Procedures Pt has another appt on 03/18/17 if you can possibly have the same day? Urbano Denis DO [address] [place] [address] [facility] Dermatology [address] [place] [address] Referral ID Status Reason Start Date Expiration Date V isits Requested Visits Authorized [id number] Closed Consult, Test & Treat Connection Center 02/25/2017 02/25/2018 1 1 Encounter Details Date Type Department Care Team (Late st Contact Info) Description 03/18/2017 3:00 PM EDT Office Visit Dermatology at [facility] [address] [place] [address] Valencia Henley MD [facility] DR JEANNET[place] [address] Rosacea Social History Tobacco Use [...] of this encounter Progress Notes * Rahel Oneil, INDUSTRIAL ENGINEER - 03/18/2017 3:00 PM EDT DERMATOLOGY NEW [...] encounter. Valencia Henley MD Section of Dermatology [facility] Cody Bolden 03/18/2017 [id number] documented in this encounter Plan of Treatment Upcoming Encounters Date Type Department Care Team (Late st Contact Info) Description 04/08/2024 1:40 PM EDT Office Visit Cardiology at [address] [phone] Jay Urban MD [facility] [place] [address] 04/15/2024 10:00 AM EDT Hospital Encounter Non[place] [phone] Arrived documented as of this encounter Goals [...] Rosacea documented in this encounter Care Teams Flight Manager Relationship Specialty Start Date End Date Urbano Denis DO [address] [place] [address] PCP - General 09/03/12 03/17/22 Ruchi Valles RN Nurse Clinic Transplant Surgery 07/30/15 documented as of this encounter
--- OUTSIDE RECORDS SUMMARY | 2024-04-04 14:05 | XMS_ITS | Encounter Summary ---
Author Organization Formerly [facility] [place] [address] Care Team Providers Care Machinist Linotype Name Role Phone Urbano Denis DO Primary Care Provider Encounter Details Date Type Department Care Team (Latest Contact Info) Description 09/15/2016 9:00 AM EDT Laboratory Appointment Lab [address] [place] [phone] S/P kidney transplant; Kidney replaced by transplant; prison current use of immunosuppressive drug ; Vitamin [...] PM EDT Office Visit Cardiology at [address] [phone] Jay Urban MD [facility] [place] [address] 04/15/2024 10:00 AM EDT Hospital Encounter Non-Invasive [place] [phone] Arrived documented as of this encounter Goals [...] HEMOGLOBIN A1C STAT 09/15/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 Kidney replaced [...] Dipstick Clear Clear [facility] Specific [place] Urine Automated 1.016 1.002 - 1.030 [facility] Color, Urine Dipstick Yellow Yellow [facility] RBC, Urine 1 0 - 3 /HPF [facility] WBC, Urine 1 0 - 3 /HPF [facility] Reflex to Culture No [facility] Urine specimen obtained by clean catch procedure (specimen) 09/15/2016 9:57 AM EDT 09/15/2016 10:07 AM EDT Narrative Resulting Agency Comment Spec In Lab Tal Eagle MD URINE ORDERABLES [facility] [place] [address] * (ABNORMAL) Protein/Creatinine Ratio, urine (09/15/2016 9:57 AM EDT) Creatinine, Urine 83 mg/dL [facility] Protein, Urine 14(H) 0 - 12 mg/dL [facility] Protein / Creatinine Ratio, Urine 0.2 ratio [facility] Urine specimen (specimen) 09/15/2016 9:57 AM EDT 09/15/2016 10:13 AM EDT Narrative Resulting Agency Comment Spec In Lab Tal Eagle MD URINE ORDERABLES [facility] [place] [address] * Phosphorus, urine, random (09/15/2016 9:57 AM EDT) Phosphorus, Urine 56.0 mg/dL [facility] Urine specimen (specimen) 09/15/2016 9:57 AM EDT 09/15/2016 10:13 AM EDT Narrative Resulting Agency Comment Spec In Lab Tal Eagle MD URINE ORDERABLES Performing Organization Address City/[facility]/ZIP Co de Phone Number [facility] [place] [address] * Calcium Creatinine Ratio, random urine (09/15/2016 9:57 AM EDT) Calcium, Urine 13.0 mg/dL [facility] Creatinine, Urine 83 mg/dL [facility] Calcium / Creatinine Ratio, Urine 0.16 ratio [facility] Urine specimen (specimen) 09/15/2016 9:57 AM EDT 09/15/2016 10:13 AM EDT Narrative Resulting Agency Comment Spec In Lab Tal Eagle MD URINE ORDERABLES [facility] [place] [address] * BK Quant Blood Result (09/15/2016 9:38 AM EDT) BKV Blood Result Not Detected [facility] BKV Blood Interp BK Virus Plasma Result Interpretation Result: BK Virus not detected Specimen type: plasma Assay Range: 2.83-8.83 log copies/mL (6.8x10^2 - 6.8x10^8 copies/mL) Methods: Quantitative real-time polymerase chain reaction (PCR) of viral DNA isolated from plasma was performed using [employer] (formerly, [employer]) BKV analyte-specific reagents and the [facility] 7500 FAST Real-Time PCR System. In addition, [...] [facility] [employer] (CGAT) Laboratory at [facility]. It has not been cleared or approved by the FDA. The laboratory is regulated under CLIA as qualified to perform high-complexity testing. This test is used for clinical purposes. It should not be regarded as investigational or for research. [facility] Comment: [VERIFIED DATE]09.16.16 Verified By:Jimmy Gleason (Electronic Signature) Blood specimen (specimen) 09/15/2016 9:38 AM EDT 09/15/2016 12:42 PM EDT Narrative Resulting Agency Comment Spec In Lab Tal Eagle MD HEMATOLOGY ORDERA BLES [facility] [place] [address] * Differential, Automated (09/15/2016 9:38 AM EDT) [facility] Neutrophil % 61.7 % [facility] Neutrophil Absolute 3.73 1.70 - 6.10 x10(3)/[facility] Lymph % 25.6 % [facility] Lymphocytes Abs 1.6 0.9 - 3.2 x10(3)/[facility] Monocyte % 8.4 % [facility] Monocyte Abs 0.5 0.3 - 0.9 x10(3)/[facility] Eos % 3.1 % [facility] Eosinophils Abs 0.2 0.0 - 0.4 x10(3)/[facility] Basophil % 1.0 % [facility] Baso Absolute 0.1 0.0 - 0.1 x10(3)/[facility] Immature Gran % 0.20 % [facility] Comment: Immature granulocytes(IG's)percentage and absolute count will include metamyelocytes, myelocytes, and promyelocytes. Blood smears from CBCs yielding IG's will be scanned manually for concordance. If this scan disagrees with the automated IG or if promyelocytes are noted, a manual differential will be performed. Immature Gran Absolute 0.01 0.00 - 0.04 x10(3)/[facility] Blood specimen (specimen) 09/15/2016 9:38 AM EDT 09/15/2016 9:44 AM EDT Narrative Resulting Agency Comment Spec In Lab Tal Eagle MD HEMATOLOGY ORDERA BLES [facility] [place] [address] * Hemogram (09/15/2016 9:38 AM EDT) White Blood Cell 6.0 4.0 - 9.5 x10(3)/[facility] Red Blood Cell 5.05 4.58 - 5.54 x10(6)/[facility] Hemoglobin 15.7 13.7 - 16.5 gm/dL [facility] Hematocrit 44.2 40.5 - 48.5 % [facility] Mean Cell Volume 87.5 82.9 - 93.1 fL [facility] Mean Cell Hemoglobin 31.1 27.5 - 32.1 pg [facility] Mean Cell Hemoglobin Concentration 35.5 32.0 - 35.7 gm/dL [facility] Platelet 238 145 - 357 x10(3)/[facility] RDW Standard Deviation 39.8 36.0 - 45.0 [facility] RDW coefficient of variation 12.4 11.4 - 13.8 % [facility] Mean Platelet Volume 9.2 7.6 - 12.9 [facility] NRBC% auto 0.0 % [facility] NRBC Absolute 0.000 0.000 - 0.000 x10(3)/[facility] Blood specimen (specimen) 09/15/2016 9:38 AM EDT 09/15/2016 9:44 AM EDT Narrative Resulting Agency Comment Spec In Lab Tal Eagle MD HEMATOLOGY ORDERA BLES Performing Organization Address City/State/[facility] Co de Phone Number [facility] [place] [address] * (ABNORMAL) Vitamin D, 25-Hydroxy (09/15/2016 9:38 [...] be considered to be insufficient or deficient. http://[employer]/DHMCnatlkidneyfoundation http://[employer]/DHMCVitD The [employer] i[employer] Vitamin D Immunoassay detects both 25-OH Vitamin D2 and 25-OH Vitamin D3, but only a total Vitamin D concentration is reported. Blood specimen (specimen) 09/15/2016 9:38 AM EDT 09/15/2016 12:08 PM EDT Narrative Resulting Agency Comment Spec In Lab Tal Eagle MD CHEMISTRY ORDERAB LES Performing Organization Address [facility] Co de Phone Number [facility] [place] [address] * Uric acid (09/15/2016 9:38 AM EDT) Uric Acid 7.7 3.5 - 8.5 mg/dL [facility] Blood specimen (specimen) 09/15/2016 9:38 AM EDT 09/15/2016 9:44 AM EDT Narrative Resulting Agency Comment Spec In Lab Tal Eagle MD CHEMISTRY ORDERAB LES Performing Organization Address [facility] de Phone Number [facility] [place] [address] * Tacrolimus level (09/15/2016 9:38 AM EDT) Tacrolimus 3.4 ng/mL [facility] Comment: Trough therapeutic: ??5-15 ng/mL Performed by ultra-performance liquid chromatography tandem mass spectrometry (UPLCMS/MS). Blood specimen (specimen) 09/15/2016 9:38 AM EDT 09/15/2016 10:07 AM EDT Narrative Resulting Agency Comment Spec In Lab Tal Eagle MD CHEMISTRY ORDERAB LES Performing Organization Address [facility] Co de Phone Number [facility] [place] [address] * PTH (09/15/2016 9:38 AM EDT) Parathyroid Hormone 36 15 - 65 pg/mL [facility] Blood specimen (specimen) 09/15/2016 9:38 AM EDT 09/15/2016 9:44 AM EDT Narrative Resulting Agency Comment Spec In Lab Tal Eagle MD CHEMISTRY ORDERAB LES Performing Organization Address City/[facility] Co de Phone Number [facility] [place] [address] * Phosphorus (09/15/2016 9:38 AM EDT) Phosphorus 3.1 2.5 - 4.5 mg/dL [facility] Blood specimen (specimen) 09/15/2016 9:38 AM EDT 09/15/2016 9:44 AM EDT Narrative Resulting Agency Comment Spec In Lab Tal Eagle MD CHEMISTRY ORDERAB LES Performing Organization Address [facility]/ZIP Co de Phone Number [facility] [place] [address] * Magnesium (09/15/2016 9:38 AM EDT) Magnesium 0.77 0.69 - 1.07 mmol/L [facility] Blood specimen (specimen) 09/15/2016 9:38 AM EDT 09/15/2016 9:44 AM EDT Narrative Resulting Agency Comment Spec In Lab Tal Eagle MD CHEMISTRY ORDERAB LES Performing Organization Address [facility]/ZIP Co de Phone Number [facility] [place] [address] * (ABNORMAL) Lipid Panel (09/15/2016 9:38 AM EDT) Cholesterol, Total 123 <=239 mg/dL [facility] Triglyceride 106 <=199 mg/dL [facility] HDL Cholesterol 38(L) >=40 mg/dL [facility] LDL Cholesterol 64 <=190 mg/dL [facility] Cholesterol/HDL Ratio 3.2 ratio [facility] Lipid Interpretation See Note [facility] Comment: Lipid management should be guided by a patient? s ASCVD risk, goals and preferences. ACC/AHA Guidelines recommend high intensity statin if clinical ASCVD or LDL greater than or equal to 190 mg/dL. http://circ.ahajournals.org/content/early/.cir.6717476516.38264.7a Adults aged 40-75 with LDL 70-189 mg/dL should have their 10 year ASCVD risk estimated with the ACC/AHA ASCVD risk pattern checker http://tools.acc.org/NFYKO-Ofwy-Igveoylyu/ Statin should be discussed if risk greater [...] ORDERAB LES Performing Organization Address [facility]/ZIP Co de Phone Number [facility] [place] [address] * Lavender Tube HOLD (09/15/2016 9:38 AM EDT) Lavender Hold Sample in lab. [facility] Blood specimen (specimen) 09/15/2016 9:38 AM EDT 09/15/2016 9:44 AM EDT Tal Eagle MD HEMATOLOGY ORDERA BLES Performing Organization Address [facility]/ZIP Co de Phone Number [facility] [place] [address] * (ABNORMAL) Hemoglobin A1c (09/15/2016 9:38 AM EDT) Hemoglobin A1c 6.9(H) 4.3 - 5.6 % [facility] [...] 36: Suppl. 1, S67-74 Estimated Average Glucose 151 mg/dL [facility] Comment: eAG equivalents for HbA1c percentages: HbA1c(%) ?eAG(mg/dL) 6.0 ?126 6.5 ?140 7.0 ?154 7.5 ?169 8.0 ?183 8.5 ?197 9.0 ?212 9.5 ?226 10.0 ? 240 Limitations: The eAG calculation has not been validated on women, individuals below 18 years old and above 70 years old, and individuals with hemoglobinopathies. Additional resources are available on the ADA website: http://[employer].com/DHMCadacalc Harjeet MENDOSA, Chanel J, Philip R, et al. ??Translating the A1C assay into estimated average glucose values. ??Diabetes Care 2008:31(8):0202-6861. Blood specimen (specimen) 09/15/2016 9:38 AM EDT 09/15/2016 9:44 AM EDT Narrative Resulting Agency Comment Spec In Lab Tal Eagle MD CHEMISTRY ORDERAB LES [facility] [place] [address] * Gold Tube HOLD (09/15/2016 9:38 AM EDT) Gold Hold Sample in lab. [facility] Blood specimen (specimen) 09/15/2016 9:38 AM EDT 09/15/2016 9:44 AM EDT Tal Eagle MD CHEMISTRY ORDERAB LES [facility] [place] [address] * (ABNORMAL) CMP w/fasting Glucose (09/15/2016 9:38 AM EDT) [facility] Glucose Fasting 130(H) 65 - 99 mg/dL [facility] [...] of Diabetes Mellitus, Position Statement from the [place] Diabetes Association. ??Diabetes Care, Volume 33, Supplement 1, Jul 2009 Blood Urea Nitrogen 20 10 - 20 mg/dL [facility] Creatinine 1.30 0.80 - 1.50 mg/dL [facility] Comment: Please note that the pediatric reference intervals supplied above were not validated at [facility]. Results from pediatric patients should be interpreted in conjunction to the patient's age, height and muscle mass. Sodium 137 135 - 145 mmol/L [facility] [...] 5.2 gm/dL [facility] Aspartate Aminotransferase 15 0 - 39 unit/L [facility] Alanine Aminotransferase 16 0 - 55 unit/L [facility] Alkaline Phosphatase 62 40 - 120 unit/L [facility] Bilirubin, Total 1.2 0.2 - 1.3 mg/dL [facility] Bilirubin, Direct 0.3 0.0 - 0.3 mg/dL [facility] Est Glomerular Filtration Rate 55(L) >=60 [facility] Comment: This estimated [...] the following links into your internet browser. http://[employer]/DHnkdep http://[employer]/DHMCnkf Blood specimen (specimen) 09/15/2016 9:38 AM EDT 09/15/2016 9:44 AM EDT Narrative Resulting Agency Comment Spec In Lab Tal Eagle MD CHEMISTRY ORDERAB LES [facility] [place] [address] * (ABNORMAL) 1,25-dihydroxycholecalciferol (09/15/2016 9:38 AM EDT) Vit D 1,25 Dihydroxy (NOVEMBER) 65(H) 18 - 64 pg/mL [facility] Comment: ADDITIONAL INFORMATION This test was developed and its performance characteristics determined by [facility] in a manner consistent with CLIA requirements. This test has not been cleared or approved by the U.S. Food and Drug Administration. Test Performed by: [facility] - [address] [address] Blood specimen (specimen) 09/15/2016 9:38 AM EDT 09/15/2016 11:07 AM EDT Narrative Resulting Agency Comment Spec In Lab Tal Eagle MD LAB SEND OUT ORDE RABLES Performing Organization Address City/[facility]/ZIP Co de Phone Number [facility] [place] [address] * U24 Hrs and Volume (09/15/2016 6:00 AM EDT) Hours Collected 24 hour(s) [facility] Total Volume 1,500 mL [facility] Urine specimen (specimen) 09/15/2016 6:00 AM EDT 09/15/2016 11:16 AM EDT Narrative Resulting Agency Comment Spec In Lab Tal Eagle MD CHEMISTRY ORDERAB LES Performing Organization Address [facility]/ZIP Co de Phone Number [facility] [place] [address] * Uric acid, urine, 24 hour (09/15/2016 6:00 AM EDT) U24 Uric Conc 38.4 mg/dL [facility] Uric Acid, 24 Hour Urine 0.58 0.25 - 0.80 gm/24hr [facility] Urine specimen (specimen) 09/15/2016 6:00 AM EDT 09/15/2016 11:16 AM EDT Narrative Resulting Agency Comment Spec In Lab Tal Eagle MD URINE ORDERABLES Performing Organization Address [facility] Co de Phone Number [facility] [place] [address] * (ABNORMAL) Protein, urine, 24 hour (09/15/2016 6:00 AM EDT) Protein Concentration, U24 14 <=80 mg/dL [facility] Protein, 24 Hour Urine 0.21(H) <=0.15 gm/24hr [facility] Urine specimen (specimen) 09/15/2016 6:00 AM EDT 09/15/2016 11:16 AM EDT Narrative Resulting Agency Comment Spec In Lab Tal Eagle MD URINE ORDERABLES Performing Organization Address [facility] Co de Phone Number [facility] [place] [address] * Phosphorus, urine, 24 hour (09/15/2016 6:00 AM EDT) Phosphorus Concentration, U24 70.2 mg/dL [facility] Phosphorus, 24 Hour Urine 1.1 0.4 - 1.3 gm/24hr [facility] Urine specimen (specimen) 09/15/2016 6:00 AM EDT 09/15/2016 11:16 AM EDT Narrative Resulting Agency Comment Spec In Lab Tal Eagle MD URINE ORDERABLES Performing Organization Address City/[facility]/ZIP Co de Phone Number [facility] [place] [address] * Creatinine, urine, 24 hour (09/15/2016 6:00 AM EDT) Cre Concentration, U24 113 mg/dL [facility] Creatinine, 24 Hour Urine 1.70 0.80 - 1.90 gm/24hr [facility] Urine specimen (specimen) 09/15/2016 6:00 AM EDT 09/15/2016 11:16 AM EDT Narrative Resulting Agency Comment Spec In Lab Tal Eagle MD URINE ORDERABLES Performing Organization Address [facility] Co de Phone Number [facility] [place] [address] * Creatinine Clearance, urine, 24 hour (09/15/2016 6:00 AM EDT) Creatinine Clearance, 24 Hour Urine 91 90 - 139 mL/min [facility] Cre Concentration, U24 113 mg/dL [facility] Creatinine, 24 Hour Urine 1.70 0.80 - 1.90 gm/24hr [facility] Urine specimen (specimen) 09/15/2016 6:00 AM EDT 09/15/2016 11:16 AM EDT Narrative Resulting Agency Comment Spec In Lab Tal Eagle MD URINE ORDERABLES Performing Organization Address [facility] Co de Phone Number [facility] [place] [address] * Calcium, urine, 24 hour (09/15/2016 6:00 AM EDT) Ca Concentration, U24 12.9 mg/dL [facility] Calcium, 24 Hour Urine 193.5 50.0 - 300.0 mg/24hr [facility] Comment:Reference Range: 50. 0-300.0 mg/24 hour based on diet. Urine specimen (specimen) 09/15/2016 6:00 AM EDT 09/15/2016 11:16 AM EDT Narrative Resulting Agency Comment Spec In Lab Tal Eagle MD URINE ORDERABLES Performing Organization Address [facility] Co de Phone Number [facility] [place] [address] documented in this encounter Visit Diagnoses Diagnosis S/P kidney transplant Kidney replaced by transplant Kidney replaced by transplant prison current use of immunosuppressive drug Vitamin D deficiency Unspecified vitamin D deficiency documented in this encounter Care Teams Machinist Linotype Relationship Specialty Start Date End Date Urbano Denis DO [address] [place] [address] PCP - General 09/03/12 03/17/22 Ruchi Valles RN Nurse Clinic Transplant Surgery 07/30/15 documented as of this encounter
--- OUTSIDE RECORDS SUMMARY | 2024-04-04 14:05 | XMS_ITS | Encounter Summary ---
Author Organization [facility] Address [facility] [place] [address] Care Team Providers Care Bistro Attendant Name Role Phone Adeel Urbano KIRBY Primary Care Provider [phone] Reason for Visit * Reason Comments Kidney Transplant Follow-up Immunotherapy Encounter Details Date Type Department Care Team (Latest Contact Info) Description 03/18/2017 10:20 AM EDT Office Visit [place] [address] Tal Eagle MD [facility] [place] [address] Kidney replaced by transplant; Aftercare following organ [...] Eagle MD - 03/18/2017 10:20 AM EDT [facility] Transplant Nephrology Follow Up ? Date: 03/18/2017 [...] for diabetics, every 5 for non diabetics [place] kidney ultrasound looking for renal cell CA, [...] Office Visit from 03/18/2017 in Transplant at [place] Weight - Scale 100.3 kg (221 lb [...] 3.8 Basophils % Latest Units: % 1.2 Ayseha Gran Abs Latest Ref Range: 0.00 - [...] UA Latest Ref Range: Clear Clear Spec [place] UA Latest Ref Range: 1.002 - 1.030 [...] PM EDT Office Visit Cardiology at [address] [phone] Jay Urban MD [facility] [place] [address] 04/15/2024 10:00 AM EDT Hospital Encounter Non-[place] [phone] Arrived documented as of this encounter Goals Goal Patient Goal Type Associated Problems Recent Progress Patient-Stated? Author [facility] Medication Compliance and Understanding Patient Facing Action [...] indicated. Urobilinogen, Urine Dipstick 2.0(A) Normal mg/dL [facility] pH, Urn (dipstick) 6.0 5.0 - 8.0 [facility] Blood, Urine Dipstick Negative Negative mg/dL [facility] Ketone, Urine Dipstick Negative Negative mg/dL [facility] Nitrite, Urine Dipstick Negative Negative [facility] Leukocytes, Urine Dipstick Negative Negative [facility] Appearance, Urine Dipstick Clear Clear [facility] Specific [place] Urine Automated 1.026 1.002 - 1.030 [facility] Color, Urine Dipstick Yellow Yellow [facility] RBC, Urine 2 0 - 3 /HPF [facility] WBC, Urine Not Present 0 - 3 /HPF [facility] Bacteria, Urine Rare(A) None /HPF [facility] Reflex to Culture No [facility] Urine specimen obtained by clean catch procedure (specimen) 03/18/2017 9:38 AM EDT 03/18/2017 9:52 AM EDT Narrative Resulting Agency Comment Spec In Lab Tal Eagle MD URINE ORDERABLES Performing Organization Address [facility] [place] [address] * (ABNORMAL) Protein/Creatinine Ratio, urine (03/18/2017 9:38 AM EDT) Creatinine, Urine 154 mg/dL [facility] Protein, Urine 32(H) 0 - 12 mg/dL [facility] Protein / Creatinine Ratio, Urine 0.2 ratio [facility] Urine specimen (specimen) 03/18/2017 9:38 AM EDT 03/18/2017 9:51 AM EDT Narrative Resulting Agency Comment Spec In Lab Tal Eagle MD URINE ORDERABLES Performing Organization Address City/[facility]/ZIP Co de Phone Number [place] [address] * Gold Tube HOLD (03/18/2017 9:36 AM EDT) Gold Hold Sample in lab. [facility] Blood specimen (specimen) 03/18/2017 9:36 AM EDT 03/18/2017 9:46 AM EDT Tal Eagle MD CHEMISTRY ORDERAB LES Performing Organization Address City/[facility]/ZIP Co de Phone Number [facility] [place] [address] * Lavender Tube HOLD (03/18/2017 9:36 AM EDT) Lavender Hold Sample in lab. [facility] Blood specimen (specimen) 03/18/2017 9:36 AM EDT 03/18/2017 9:46 AM EDT Tal Ealge MD HEMATOLOGY ORDERA BLES Performing Organization Address [facility]/ZIP Co de Phone Number [facility] [place] [address] * (ABNORMAL) Uric acid (03/18/2017 9:36 AM EDT) Uric Acid 9.3(H) 3.5 - 8.5 mg/dL [facility] Blood specimen (specimen) 03/18/2017 9:36 AM EDT 03/18/2017 9:46 AM EDT Narrative Resulting Agency Comment Spec In Lab Tal Eagle MD CHEMISTRY ORDERAB LES Performing Organization Address City/[facility]/ZIP Co de Phone Number [facility] [place] [address] * Tacrolimus level (03/18/2017 9:36 AM EDT) Tacrolimus 4.4 ng/mL [facility] Comment: Trough therapeutic: ??5-15 ng/mL Performed by ultra-performance liquid chromatography tandem mass spectrometry (UPLCMS/MS). This test was developed and its performance characteristics determined by [facility]. It has not been cleared or [...] ORDERAB LES Performing Organization Address [facility] Co de Phone Number [facility] [place] [address] * Reticulocyte Count (03/18/2017 9:36 AM EDT) Reticulocyte % 2.0 0.7 - 2.6 % [facility] Retic Abs # 0.110 0.030 - 0.120 x10(6)/mcL [facility] Immature Retic% 11.0 0.0 - 15.6 % [facility] Reticulated Hgb 36.1 31.3 - 40.2 pg [facility] Blood specimen (specimen) 03/18/2017 9:36 AM EDT 03/18/2017 9:46 AM EDT Narrative Resulting Agency Comment Spec In Lab Tal Eagle MD HEMATOLOGY ORDERA BLES Performing Organization Address [facility] Co de Phone Number [facility] [place] [address] * Phosphorus (03/18/2017 9:36 AM EDT) Phosphorus 2.6 2.5 - 4.5 mg/dL [facility] Blood specimen (specimen) 03/18/2017 9:36 AM EDT 03/18/2017 9:46 AM EDT Narrative Resulting Agency Comment Spec In Lab Tal Eagle MD CHEMISTRY ORDERAB LES Performing Organization Address City/[facility]/ZIP Co de Phone Number [facility] [place] [address] * Magnesium (03/18/2017 9:36 AM EDT) [facility] Magnesium 0.77 0.69 - 1.07 mmol/L [facility] Blood specimen (specimen) 03/18/2017 9:36 AM EDT 03/18/2017 9:46 AM EDT Narrative Resulting Agency Comment Spec In Lab Tal Eagle MD CHEMISTRY ORDERAB LES Performing Organization Address [facility] Co de Phone Number [facility] [place] [address] * (ABNORMAL) Comprehensive metabolic panel (non-fasting) (03/18/2017 9:36 AM EDT) [facility] Glucose 116 65 - 199 mg/dL [facility] Comment:Diabetes: >=200 mg/d L plus symptoms Blood Urea Nitrogen 27(H) 10 - 20 mg/dL [facility] Creatinine 1.52(H) 0.80 - 1.50 mg/dL [facility] Comment: Please note that the pediatric reference intervals supplied above were not validated at [facility]. Results from pediatric patients should be interpreted in conjunction to the patient's age, height and muscle mass. Sodium 141 135 - 145 mmol/L [facility] Carbon Dioxide 27 22 - 31 mmol/L [facility] Anion Gap 13 5 - 15 mmol/L [facility] Calcium 9.8 8.5 - 10.5 mg/dL [facility] Est Glomerular Filtration Rate 46(L) >=60 [facility] Comment: [...] the following links into your internet browser. [email or web address] Blood specimen (specimen) 03/18/2017 9:36 AM EDT 03/18/2017 9:46 AM EDT Narrative Resulting Agency Comment Spec In Lab Tal Eagle MD CHEMISTRY ORDERAB LES [facility] [place] [address] * Cholesterol, total (03/18/2017 9:36 AM EDT) Cholesterol, Total 150 <=239 mg/dL [facility] Lipid Interpretation See Note [facility] Comment: Lipid management should be guided by a patient? s ASCVD risk, goals and preferences. ACC/AHA Guidelines recommend high intensity statin if clinical ASCVD or LDL greater than or equal to 190 mg/dL. http://Teneros.Witel/FAM-XFK-Ivvladahw Adults aged 40-75 with LDL 70-189 mg/dL should have their 10 year ASCVD risk estimated with the ACC/AHA ASCVD risk auto body repair estimator http://tools.acc.org/TVJAV-Eibt-Adtysawiy/ Statin should be discussed if risk greater [...] ORDERAB LES [facility] [place] [address] * BKV Quant Blood (03/18/2017 9:36 AM EDT) BKV Blood Result Not Detected [facility] BKV Blood Interp BK Virus Plasma Result Interpretation Result: BK Virus not detected Specimen type: plasma Assay Range: 2.83-8.83 log copies/mL (6.8x10^2 - 6.8x10^8 copies/mL) Methods: Quantitative real-time polymerase chain reaction (PCR) of viral DNA isolated from plasma was performed using [employer] (formerly, [employer]) BKV analyte-specific reagents and the [employer] Biosystems [...] its performance characteristics determined by the [employer] (CG[employer]) Laboratory at [facility]. It has not been cleared or approved by the FDA. The laboratory is regulated under CLIA as qualified to perform high-complexity testing. This test is used for clinical purposes. It should not be regarded as investigational or for research. [facility] Comment: [VERIFIED DATE]03.26.17 Verified By:Bryan Hernandez, Sreedhar Bell Molecular Pathologist (Electronic Signature) Blood specimen (specimen) 03/18/2017 9:36 AM EDT 03/18/2017 10:31 AM EDT Narrative Resulting Agency Comment Spec In Lab Tal Eagle MD MOLECULAR ORDERAB LES [facility] [place] [address] documented in this encounter Visit Diagnoses Diagnosis Kidney replaced by transplant Aftercare following organ transplant Prophylactic immunotherapy Need for prophylactic immunotherapy documented in this encounter Care Teams Bistro Attendant Relationship Specialty Start Date End Date Urbano Denis DO [address] [place] [address] PCP - General 09/03/12 03/17/22 Ruchi Valles RN Nurse [facility] Transplant Surgery 07/30/15 documented as of this encounter
--- OUTSIDE RECORDS SUMMARY | 2024-04-04 14:05 | XMS_ITS | Encounter Summary ---
[place] [address] Care Team Providers Care Mobile Crane Operator Name Role Phone Adeel, Urbano KIRBY Primary Care Provider Reason for Visit * Reason Onset Date Comments Medication Refill 12/12/2016 Encounter Details Date Type Department Care Team (Late st Contact Info) Description 12/12/2016 Refill [place] [phone] Joanne Nogueira CMA Social History Tobacco Use [...] PM EDT Office Visit Cardiology at [address] [phone] Jay Urban MD [facility] [address] [place] [address] 04/15/2024 10:00 AM EDT Hospital Encounter Non-[place] [address] Arrived documented as of this [...] on filedocumented in this encounter Care Teams Mobile Crane Operator Relationship Specialty Start Date End Date Urbano Denis DO [address] [place] [address] [address] [facility] [address] [place] [address] PCP - General 09/03/12 03/17/22 Ruchi Valles RN Nurse Clinic Transplant Surgery 07/30/15 documented as of this encounter
--- OUTSIDE RECORDS SUMMARY | 2024-04-04 14:06 | XMS_ITS | Encounter Summary ---
Author Organization [facility] [place] [address] Care Team Providers Care Pile Driver Engineer Name Role Phone Urbano Denis DO Primary Care Provider Encounter Details Date Type Department Care Team (Latest Contact Info) Description 08/12/2016 9:00 AM EST Laboratory Appointment Lab [address] [place] [address] Kidney transplant recipient; Kidney replaced by transplant [...] PM EDT Office Visit Cardiology at [address] [phone] Jay Urban MD [facility] [address] [place] [address] 04/15/2024 10:00 AM EDT Hospital Encounter [place] [address] Arrived documented as of this [...] 9:50 AM EST) Creatinine, Urine 132 mg/dL [facility] Protein, Urine 29(H) 0 - 12 mg/dL [facility] Protein / Creatinine Ratio, Urine 0.2 ratio [facility] Urine specimen (specimen) 08/12/2016 9:50 AM EST 08/12/2016 9:57 AM EST Narrative Resulting Agency Comment Spec In Lab Tal Eagle MD URINE ORDERABLES [facility] [place] [address] * (ABNORMAL) Urinalysis with reflex Culture (08/12/2016 9:50 AM EST) Glucose, Urine Dipstick >=500(Critic al) Negative mg/dL [facility] Comment: Urinalysis result NOT critical without a combination of Glucose greater than or equal to 500mg/dl AND Ketones greater than or equal to 80mg/dl. Protein, Urine Dipstick 30(A) Negative mg/dL [facility] [...] [facility] Ketone, Urine Dipstick 5(A) Negative mg/dL [facility] Nitrite, Urine Dipstick Negative Negative [facility] Leukocytes, Urine Dipstick Negative Negative [facility] Appearance, Urine Dipstick Clear Clear [facility] Specific [place] Urine Automated 1.023 1.002 - 1.030 [facility] Color, Urine Dipstick Yellow Yellow [facility] RBC, Urine 2 0 - 3 /HPF [facility] WBC, Urine 5(H) 0 - 3 /HPF [facility] Reflex to Culture No [facility] Urine specimen (specimen) 08/12/2016 9:50 AM EST 08/12/2016 9:57 AM EST Narrative Resulting Agency Comment Spec In Lab Tal Eagle MD URINE ORDERABLES [facility] [place] [address] * BK Quant Blood Result (08/12/2016 9:31 AM EST) BKV Blood Result Not Detected [facility] BKV Blood Interp BK Virus Plasma Result Interpretation Result: BK Virus not detected Specimen type: plasma Assay Range: 2.83-8.83 log copies/mL (6.8x10^2 - 6.8x10^8 copies/mL) Methods: Quantitative real-time polymerase chain reaction (PCR) of viral DNA isolated from plasma was performed using [employer] (formerly, [employer]) BKV analyte-specific reagents and the [employer] 7500 FAST Real-Time PCR System. In addition, [...] [facility] [employer] [facility] (CGAT) Laboratory at [facility]. It has not been cleared or approved by the FDA. The laboratory is regulated under CLIA as qualified to perform high-complexity testing. This test is used for clinical purposes. It should not be regarded as investigational or for research. [facility] Comment: [VERIFIED DATE]08.19.16 Verified By:Nella Evans (Electronic Signature) Blood specimen (specimen) 08/12/2016 9:31 AM EST 08/12/2016 1:20 PM EST Narrative Resulting Agency Comment Spec In Lab Tal Eagle MD HEMATOLOGY ORDERA BLES Performing Organization Address City/[facility] Co de Phone Number [facility] [place] [address] * Differential, Automated (08/12/2016 9:31 AM EST) Neutrophil % 67.5 % [facility] Neutrophil Absolute 5.38 1.70 - 6.10 x10(3)/[facility] Lymph % 21.5 % [facility] Lymphocytes Abs 1.7 0.9 - 3.2 x10(3)/[facility] Monocyte % 7.0 % [facility] Monocyte Abs 0.6 0.3 - 0.9 x10(3)/[facility] Eos % 2.5 % [facility] Eosinophils Abs 0.2 0.0 - 0.4 x10(3)/[facility] Basophil % 1.0 % [facility] Baso Absolute 0.1 0.0 - 0.1 x10(3)/[facility] Immature Gran % 0.50 % [facility] Comment: Immature granulocytes(IG's)percentage and absolute count will include metamyelocytes, myelocytes, and promyelocytes. Blood smears from CBCs yielding IG's will be scanned manually for concordance. If this scan disagrees with the automated IG or if promyelocytes are noted, a manual differential will be performed. Immature Gran Absolute 0.04 0.00 - 0.04 x10(3)/[facility] Blood specimen (specimen) 08/12/2016 9:31 AM EST 08/12/2016 9:38 AM EST Narrative Resulting Agency Comment Spec In Lab Tal Eagle MD HEMATOLOGY ORDERA BLES [facility] [place] [address] * Hemogram (08/12/2016 9:31 AM EST) [facility] White Blood Cell 8.0 4.0 - 9.5 x10(3)/[facility] Red Blood Cell 4.96 4.58 - 5.54 x10(6)/[facility] Hemoglobin 15.8 13.7 - 16.5 gm/dL [facility] Hematocrit 44.9 40.5 - 48.5 % [facility] Mean Cell Volume 90.5 82.9 - 93.1 fL [facility] Mean Cell Hemoglobin 31.9 27.5 - 32.1 pg [facility] Mean Cell Hemoglobin Concentration 35.2 32.0 - 35.7 gm/dL [facility] Platelet 236 145 - 357 x10(3)/[facility] RDW Standard Deviation 41.4 36.0 - 45.0 [facility] RDW coefficient of variation 12.6 11.4 - 13.8 % [facility] Mean Platelet Volume 9.6 7.6 - 12.9 [facility] NRBC% auto 0.0 % [facility] NRBC Absolute 0.000 0.000 - 0.000 x10(3)/[facility] Blood specimen (specimen) 08/12/2016 9:31 AM EST 08/12/2016 9:38 AM EST Narrative Resulting Agency Comment Spec In Lab Tal Eagle MD HEMATOLOGY ORDERA BLES [facility] [place] [address] * (ABNORMAL) Reticulocyte Count (08/12/2016 9:31 AM EST) Pathologist [facility] Reticulocyte % 2.5 0.7 - 2.6 % [facility] Retic Abs # 0.130(H) 0.030 - 0.120 x10(6)/mc L [facility] Immature Retic% 9.1 0.0 - 15.6 % [facility] Reticulated Hgb 36.1 31.3 - 40.2 pg [facility] Blood specimen (specimen) 08/12/2016 9:31 AM EST 08/12/2016 9:38 AM EST Narrative Resulting Agency Comment Spec In Lab Tal Eagle MD HEMATOLOGY ORDERA BLES [facility] [place] [address] * (ABNORMAL) Comprehensive metabolic panel (non-fasting) (08/12/2016 9:31 AM EST) Glucose 330(H) 65 - 199 mg/dL [facility] Comment:Diabetes: >=200 mg/d L plus symptoms Blood Urea Nitrogen 14 10 - 20 mg/dL [facility] Creatinine 1.29 0.80 - 1.50 mg/dL [facility] Comment: Please note that the pediatric reference intervals supplied above were not validated at [facility]. Results from pediatric patients should be interpreted in conjunction to the patient's age, height and muscle mass. Sodium 135 135 - 145 mmol/L [facility] Potassium 4.2 3.5 - 5.0 mmol/L [facility] Comment: Please note: ??Patients with WBC >100,000 may have falsely elevated Potassium levels. ??For accurate Potassium quantification in these patients send serum separator tube (gold top) for subsequent determinations. ??Contact the Clinical Chemistry Laboratory if there are any questions. Chloride 96(L) 98 - 107 mmol/L [facility] Carbon Dioxide 24 22 - 31 mmol/L [facility] Anion Gap 15 5 - 15 mmol/L [facility] Calcium 9.9 8.5 - 10.5 mg/dL [facility] Protein, Total 7.7 6.1 - 8.0 gm/dL [facility] Albumin 4.3 3.2 - 5.2 gm/dL [facility] Aspartate Aminotransferase 22 0 - 39 unit/L [facility] Alanine Aminotransferase 28 0 - 55 unit/L [facility] Alkaline Phosphatase 74 40 - 120 unit/L [facility] Bilirubin, Total 1.4(H) 0.2 - 1.3 mg/dL [facility] Bilirubin, Direct 0.3 0.0 - 0.3 mg/dL [facility] Est Glomerular Filtration Rate 56(L) >=60 [facility] Comment: This estimated GFR [...] the following links into your internet browser. [email or web address] Blood specimen (specimen) 08/12/2016 9:31 AM EST 08/12/2016 9:38 AM EST Narrative Resulting Agency Comment Spec In Lab Tal Eagle MD CHEMISTRY ORDERAB LES Performing Organization Address [facility] Co de Phone Number [facility] [place] [address] * Uric acid (08/12/2016 9:31 AM EST) Uric Acid 6.3 3.5 - 8.5 mg/dL [facility] Blood specimen (specimen) 08/12/2016 9:31 AM EST 08/12/2016 9:38 AM EST Narrative Resulting Agency Comment Spec In Lab Tal Eagle MD CHEMISTRY ORDERAB LES Performing Organization Address [facility]/State/ZIP Co de Phone Number [facility] [place] [address] * Cholesterol, total (08/12/2016 9:31 AM EST) Cholesterol, Total 126 <=239 mg/dL [facility] Lipid Interpretation See Note [facility] Comment: Lipid management should be guided by a patient? s ASCVD risk, goals and preferences. ACC/AHA Guidelines recommend high intensity statin if clinical ASCVD or LDL greater than or equal to 190 mg/dL. http://circ.ahajournals.org/content/early/.cir.0509145426.74081.7a Adults aged 40-75 with LDL 70-189 mg/dL should have their 10 year ASCVD risk estimated with the ACC/AHA ASCVD risk brine tank separator operator http://tools.acc.org/WVLYQ-Qgqi-Qhgilxqhu/ Statin should be discussed if risk greater [...] CHEMISTRY ORDERAB LES [facility] [place] [address] * Tacrolimus level (08/12/2016 9:31 AM EST) Tacrolimus 4.9 ng/mL [facility] Comment: Trough therapeutic: ??5-15 ng/mL Performed by ultra-performance liquid chromatography tandem mass spectrometry (UPLCMS/MS). Blood specimen (specimen) 08/12/2016 9:31 AM EST 08/12/2016 10:15 AM EST Narrative Resulting Agency Comment Spec In Lab Tal Eagle MD CHEMISTRY ORDERAB LES Performing Organization Address [facility] Co de Phone Number [facility] [place] [address] * Phosphorus (08/12/2016 9:31 AM EST) Phosphorus 2.6 2.5 - 4.5 mg/dL [facility] Blood specimen (specimen) 08/12/2016 9:31 AM EST 08/12/2016 9:38 AM EST Narrative Resulting Agency Comment Spec In Lab Tal Eagle MD CHEMISTRY ORDERAB LES Performing Organization Address [facility] Co de Phone Number [facility] [place] [address] * (ABNORMAL) Magnesium (08/12/2016 9:31 AM EST) Magnesium 0.68(L) 0.69 - 1.07 mmol/L [facility] Blood specimen (specimen) 08/12/2016 9:31 AM EST 08/12/2016 9:38 AM EST Narrative Resulting Agency Comment Spec In Lab Tal Eagle MD CHEMISTRY ORDERAB LES Performing Organization Address [facility] Co de Phone Number [facility] [place] [address] documented in this encounter Visit Diagnoses Diagnosis Kidney transplant recipient Kidney replaced by transplant documented in this encounter Care Teams Pile Driver Engineer Relationship Specialty Start Date End Date Urbano Denis DO [address] [place] [address] PCP - General 09/03/12 03/17/22 Hai STANLEY,Ruchi Nurse Clinic Transplant Surgery 07/30/15 documented as of this encounter
--- OUTSIDE RECORDS SUMMARY | 2024-04-04 14:06 | XMS_ITS | Encounter Summary ---
Author Organization [facility] Address [facility] [place] [address] Care Team Providers Care Lead Net Software Developer Name Role Phone Urbano Denis DO Primary Care Provider [phone] Encounter Details Date Type Department Care Team (Late st Contact Info) Description 07/08/2016 10:30 AM EST Office Visit [place] [address] Jennifer Amaro MD [facility] [place] [address] Kidney replaced by transplant Social History Tobacco [...] EXTREMITY performed by Jennifer Amaro MD at [facility] MAIN OR ??? Pro transplantation of kidney N/A 09/16/2015 @KIDNEY TRANSPLANT, WITHOUT RECIPIENT NEPHRECTOMY performed by Franko Larkin MD at [facility] MAIN OR ??? Pro transplant, prep cadaver renal graft N/A 09/16/2015 @PREPARATION CADAVERIC RENAL ALLOGRAFT performed by Franko Larkin MD at [facility] MAIN OR ??? N/A 09/16/2015 ORGAN ACQUISITION RENAL, CADAVERIC performed by Franko Larkin MD at [facility] MAIN OR ??? Pro reimplant ureter, single ureter Left 05/20/2016 @URETERONEOCYSTOSTOMY ANASTOMOSIS OF SINGLE URETER TO BLADDER performed by Santosh Arredondo MD at [facility] OR ??? Pro reimplant ureter, single ureter N/A 05/20/2016 @URETERONEOCYSTOSTOMY ANASTOMOSIS OF SINGLE URETER TO BLADDER performed by Jennifer Amaro MD at [facility] OR Family History: No family [...] one month. MD: JENNIFER AMARO MD * Ellen Edmonds MD - 07/08/2016 10:30 AM EST [...] EXTREMITY performed by Jennifer Amaro MD at [facility] OR ??? Pro transplantation of kidney N/A 09/16/2015 @KIDNEY TRANSPLANT, WITHOUT RECIPIENT NEPHRECTOMY performed by Franko Larkin MD at [facility] OR ??? Pro transplant, prep cadaver renal graft N/A 09/16/2015 @PREPARATION CADAVERIC RENAL ALLOGRAFT performed by Franko Larkin MD at [facility] OR ??? N/A 09/16/2015 ORGAN ACQUISITION RENAL, CADAVERIC performed by Franko Larkin MD at [facility] OR ??? Pro reimplant ureter, single ureter Left 05/20/2016 @URETERONEOCYSTOSTOMY ANASTOMOSIS OF SINGLE URETER TO BLADDER performed by Santosh Arredondo MD at [facility] MAIN OR ??? Pro reimplant ureter, single ureter N/A 05/20/2016 @URETERONEOCYSTOSTOMY ANASTOMOSIS OF SINGLE URETER TO BLADDER performed by Jennifer Amaro MD at [facility] MAIN OR Family History: No family [...] 6. Return to clinic: 4 weeks MD: ELLEN EDMONDS MD documented in this encounter Plan of Treatment Upcoming Encounters Date Type Department Care Team (Late st Contact Info) Description 04/08/2024 1:40 PM EDT Office Visit Cardiology at [address] [phone] Jay Urban MD [facility] [place] [address] 04/15/2024 10:00 AM EDT Hospital Encounter Non-[place] [phone] Arrived documented as of this encounter Results [...] LABORATORY Leukocytes, Urine Dipstick Negative Negative [facility]ORY Appearance, Urine Dipstick Clear Clear [facility] Specific [place] Urine Automated 1.020 1.002 - 1.030 [facility] Color, Urine Dipstick Yellow Yellow [facility] RBC, Urine 2 0 - 3 /HPF [facility] WBC, Urine 3 0 - 3 /HPF [facility] Reflex to Culture No [facility] Urine specimen obtained by clean catch procedure (specimen) 07/08/2016 8:57 AM EST 07/08/2016 9:02 AM EST Narrative Resulting Agency Comment Spec In Lab Jennifer Amaro MD URINE ORDERABL ES Performing Organization Address [facility] Co de Phone Number [facility] [place] [address] * (ABNORMAL) Protein/Creatinine Ratio, urine (07/08/2016 8:57 AM EST) Creatinine, Urine 124 mg/dL [facility] Protein, Urine 15(H) 0 - 12 mg/dL [facility] Protein / Creatinine Ratio, Urine 0.1 ratio [facility] Urine specimen (specimen) 07/08/2016 8:57 AM EST 07/08/2016 9:03 AM EST Narrative Resulting Agency Comment Spec In Lab Jennifer Amaro MD URINE ORDERABL ES Performing Organization Address [facility] Co de Phone Number [facility] [place] [address] * Uric acid (07/08/2016 8:56 AM EST) Uric Acid 7.1 3.5 - 8.5 mg/dL [facility] Blood specimen (specimen) 07/08/2016 8:56 AM EST 07/08/2016 9:03 AM EST Narrative Resulting Agency Comment Spec In Lab Jennifer Amaro MD CHEMISTRY ORDE RABLES Performing Organization Address [facility] Co de Phone Number [facility] [place] [address] * Tacrolimus level (07/08/2016 8:56 AM EST) Tacrolimus 5.5 ng/mL [facility] Comment: Trough therapeutic: ??5-15 ng/mL Performed by ultra-performance liquid chromatography tandem mass spectrometry (UPLCMS/MS). Blood specimen (specimen) 07/08/2016 8:56 AM EST 07/08/2016 10:54 AM EST Narrative Resulting Agency Comment Spec In Lab Jennifer Amaro MD CHEMISTRY ROCHELLE JENNINGS Performing Organization Address [facility] Co de Phone Number [facility] [place] [address] * Reticulocyte Count (07/08/2016 8:56 AM EST) Reticulocyte % 2.3 0.7 - 2.6 % [facility] Retic Abs # 0.110 0.030 - 0.120 x10(6)/mcL [facility] Immature Retic% 4.9 0.0 - 15.6 % [facility] Reticulated Hgb 37.2 31.3 - 40.2 pg [facility] Blood specimen (specimen) 07/08/2016 8:56 AM EST 07/08/2016 9:03 AM EST Narrative Resulting Agency Comment Spec In Lab Jennifer Amaro MD HEMATOLOGY ORD ERABLES Performing Organization Address [facility] de Phone Number [facility] [place] [address] * Phosphorus (07/08/2016 8:56 AM EST) Phosphorus 2.8 2.5 - 4.5 mg/dL [facility] Blood specimen (specimen) 07/08/2016 8:56 AM EST 07/08/2016 9:03 AM EST Narrative Resulting Agency Comment Spec In Lab Jennifer Amaro MD CHEMISTRY ROCHELLE JENNINGS Performing Organization Address [facility] Co de Phone Number [facility] [place] [address] * (ABNORMAL) Magnesium (07/08/2016 8:56 AM EST) Magnesium 0.62(L) 0.69 - 1.07 mmol/L [facility] Blood specimen (specimen) 07/08/2016 8:56 AM EST 07/08/2016 9:03 AM EST Narrative Resulting Agency Comment Spec In Lab Jennifer Amaro MD CHEMISTRY ROCHELLE JENNINGS [facility] [place] [address] * (ABNORMAL) Comprehensive metabolic panel (non-fasting) (07/08/2016 8:56 AM EST) Pathologist [facility] Glucose 258(H) 65 - 199 mg/dL [facility] Comment:Diabetes: >=200 mg/d L plus symptoms Blood Urea Nitrogen 14 10 - 20 mg/dL [facility] Creatinine 1.28 0.80 - 1.50 mg/dL [facility] Comment: Please note that the pediatric reference intervals supplied above were not validated at [facility]. Results from pediatric [...] questions. Chloride 97(L) 98 - 107 mmol/L [facility] Carbon Dioxide 23 22 - 31 mmol/L [facility] Anion Gap 16(H) 5 - 15 mmol/L [facility] Calcium 9.7 8.5 - 10.5 mg/dL [facility] Protein, Total 7.7 6.1 - 8.0 gm/dL [facility] Albumin 4.0 3.2 - 5.2 gm/dL [facility] Aspartate Aminotransferase 23 0 - 39 unit/L [facility] Alanine Aminotransferase 24 0 - 55 unit/L [facility] Alkaline Phosphatase 82 40 - 120 unit/L [facility] Bilirubin, Total 1.6(H) 0.2 - 1.3 mg/dL [facility] [...] the following links into your internet browser. [email or web address] Blood specimen (specimen) 07/08/2016 8:56 AM EST 07/08/2016 9:03 AM EST Narrative Resulting Agency Comment Spec In Lab Jennifer Amaro MD CHEMISTRY ROCHELLE JENNINGS [facility] Organization Address City/State/ZIP Co de Phone Number [facility] [place] [address] * Cholesterol, total (07/08/2016 8:56 AM EST) Cholesterol, Total 151 <=239 mg/dL [facility] Lipid Interpretation See Note [facility] Comment: Lipid management should be guided by a patient? s ASCVD risk, goals and preferences. ACC/AHA Guidelines recommend high intensity statin if clinical ASCVD or LDL greater than or equal to 190 mg/dL. http://circ.ahajournals.org/content/early/.cir.4584183098.82977.7a Adults aged 40-75 with LDL 70-189 mg/dL should have their 10 year ASCVD risk estimated with the ACC/AHA ASCVD risk welding estimator http://tools.acc.org/BTJQR-Hurj-Dbsugxssl/ Statin should be discussed if risk greater [...] Lab Jennifer Amaro MD CHEMISTRY ROCHELLE JENNINGS [place] [phone] documented in this encounter Visit Diagnoses Diagnosis Kidney replaced by transplant documented in this encounter Care Teams Lead Net Software Developer Relationship Specialty Start Date End Date Urbano Denis DO [address] [place] [address] PCP - General 09/03/12 03/17/22 Ruchi Valles RN Nurse Clinic Transplant Surgery 07/30/15 documented as of this encounter
--- OUTSIDE RECORDS SUMMARY | 2024-04-04 14:06 | XMS_ITS | Encounter Summary ---
Author Organization [facility] [place] [address] Care Team Providers Care Budder Name Role Phone Urbano Denis DO Primary Care Provider Encounter Details Date Type Department Care Team (Latest Contact Info) Description 07/08/2016 9:30 AM EST Laboratory Appointment Lab [address] [place] [address] Kidney replaced by transplant Social [...] PM EDT Office Visit Cardiology at [address] [phone] Jay Urban MD [facility] [address] 04/15/2024 10:00 AM EDT Hospital Encounter [place] [address] Arrived documented as of this [...] EST) Glucose, Urine Dipstick Negative Negative mg/dL [facility] [...] LABORATORY Leukocytes, Urine Dipstick Negative Negative [facility] LABORATORY Appearance, Urine Dipstick Clear Clear [facility] Specific [place] Urine Automated 1.020 1.002 - 1.030 [facility] Color, Urine Dipstick Yellow Yellow [facility] RBC, Urine 2 0 - 3 /HPF [facility] WBC, Urine 3 0 - 3 /HPF [facility] Reflex to Culture No [facility] Urine specimen obtained by clean catch procedure (specimen) 07/08/2016 8:57 AM EST 07/08/2016 9:02 AM EST Narrative Resulting Agency Comment Spec In Lab Que Amaro MD URINE ORDERABL ES [facility] [place] [address] * (ABNORMAL) Protein/Creatinine Ratio, urine (07/08/2016 8:57 AM EST) Creatinine, Urine 124 mg/dL [facility] Protein, Urine 15(H) 0 - 12 mg/dL [facility] Protein / Creatinine Ratio, Urine 0.1 ratio [facility] Urine specimen (specimen) 07/08/2016 8:57 AM EST 07/08/2016 9:03 AM EST Narrative Resulting Agency Comment Spec In Lab Que mAaro MD URINE ORDERABL ES Performing Organization Address City/[facility]/ZIP Co de Phone Number [facility] [place] [address] * BK Quant Blood Result (07/08/2016 8:56 AM EST) [facility] BKV Blood Result Not Detected [facility] BKV Blood Interp BK Virus Plasma Result Interpretation Result: BK Virus not detected Specimen type: plasma Assay Range: 2.83-8.83 log copies/mL (6.8x10^2 - 6.8x10^8 copies/mL) Methods: Quantitative real-time polymerase chain reaction (PCR) of viral DNA isolated from plasma was performed using [employer] (formerly, [employer]) BKV analyte-specific reagents and the [employer] 7500 FAST Real-Time PCR System. In [...] [facility] [facility] [employer] ([facility]) Laboratory at [facility]. It has not been cleared or approved by the FDA. The laboratory is regulated under CLIA as qualified to perform high-complexity testing. This test is used for clinical purposes. It should not be regarded as investigational or for research. [facility] Comment: [VERIFIED DATE]07.16.16 Verified By:Fatemeh Garcia (Electronic Signature) Blood specimen (specimen) 07/08/2016 8:56 AM EST 07/08/2016 10:38 AM EST Narrative Resulting Agency Comment Spec In Lab Que Amaro MD HEMATOLOGY ORD ERABLES [facility] [place] [address] * Differential, Automated (07/08/2016 8:56 AM EST) [facility] Neutrophil % 68.4 % [facility] Neutrophil Absolute 5.86 1.70 - 6.10 x10(3)/[facility] LABORATORY Lymph % 21.5 % [facility] Lymphocytes Abs 1.8 0.9 - 3.2 x10(3)/[facility] LABOR[facility]ORY Monocyte % 6.9 % [facility] Monocyte Abs 0.6 0.3 - 0.9 x10(3)/[facility] LABORATORY Eos % 2.1 % [facility] Eosinophils Abs 0.2 0.0 - 0.4 x10(3)/[facility] Basophil % 0.6 % [facility] Baso Absolute 0.0 0.0 - 0.1 x10(3)/[facility] LABORATORY Immature Gran % 0.50 % [facility] Comment: Immature granulocytes(IG's)percentage and absolute count will include metamyelocytes, myelocytes, and promyelocytes. Blood smears from CBCs yielding IG's will be scanned manually for concordance. If this scan disagrees with the automated IG or if promyelocytes are noted, a manual differential will be performed. Immature Gran Absolute 0.04 0.00 - 0.04 x10(3)/[facility] Blood specimen (specimen) 07/08/2016 8:56 AM EST 07/08/2016 9:03 AM EST Narrative Resulting Agency Comment Spec In Lab Que Amaro MD HEMATOLOGY ORD ERABLES [facility] [place] [address] * Hemogram (07/08/2016 8:56 AM EST) [facility] White Blood Cell 8.6 4.0 - 9.5 x10(3)/[facility] LABORATORY Red Blood Cell 4.61 4.58 - 5.54 x10(6)/[facility] Hemoglobin 14.7 13.7 - 16.5 gm/dL [facility] Hematocrit 41.5 40.5 - 48.5 % [facility] Mean Cell Volume 90.0 82.9 - 93.1 [facility] LAB[facility] Mean Cell Hemoglobin 31.9 27.5 - 32.1 pg [facility] Mean Cell Hemoglobin Concentration 35.4 32.0 - 35.7 gm/dL [facility] Platelet 252 145 - 357 x10(3)/[facility] LABORATORY RDW Standard Deviation 40.8 36.0 - 45.0 [facility]ORY RDW coefficient of variation 12.5 11.4 - 13.8 % [facility] Mean Platelet Volume 9.0 7.6 - 12.9 [facility] LABORATORY NRBC% auto 0.0 % [facility] NRBC Absolute 0.000 0.000 - 0.000 x10(3)/[facility] Blood specimen (specimen) 07/08/2016 8:56 AM EST 07/08/2016 9:03 AM EST Narrative Resulting Agency Comment Spec In Lab Que Amaro MD HEMATOLOGY ORD ERABLES Performing Organization Address City/[facility]/ZIP Co de Phone Number [facility] [place] [phone] * Uric acid (07/08/2016 8:56 AM EST) Uric Acid 7.1 3.5 - 8.5 mg/dL [facility] Blood specimen (specimen) 07/08/2016 8:56 AM EST 07/08/2016 9:03 AM EST Narrative Resulting Agency Comment Spec In Lab Que Amaro MD CHEMISTRY ORDE RABLENORE Performing Organization Address City/[facility]/ZIP Co de Phone Number [facility] [place] [address] * Tacrolimus level (07/08/2016 8:56 AM EST) Tacrolimus 5.5 ng/mL [facility] Comment: Trough therapeutic: ??5-15 ng/mL Performed by ultra-performance liquid chromatography tandem mass spectrometry (UPLCMS/MS). Blood specimen (specimen) 07/08/2016 8:56 AM EST 07/08/2016 10:54 AM EST Narrative Resulting Agency Comment Spec In Lab Que Amaro MD CHEMISTRY ROCHELLE JENNINGS Performing Organization Address [facility] Co de Phone Number [facility] [place] [address] * Reticulocyte Count (07/08/2016 8:56 AM EST) Reticulocyte % 2.3 0.7 - 2.6 % [facility] Retic Abs # 0.110 0.030 - 0.120 x10(6)/mcL [facility] Immature Retic% 4.9 0.0 - 15.6 % [facility] Reticulated Hgb 37.2 31.3 - 40.2 pg [facility] Blood specimen (specimen) 07/08/2016 8:56 AM EST 07/08/2016 9:03 AM EST Narrative Resulting Agency Comment Spec In Lab Que Amaro MD HEMATOLOGY ORD ERABLES Performing Organization Address [facility] Co de Phone Number [facility] [place] [address] * Phosphorus (07/08/2016 8:56 AM EST) Phosphorus 2.8 2.5 - 4.5 mg/dL [facility] Blood specimen (specimen) 07/08/2016 8:56 AM EST 07/08/2016 9:03 AM EST Narrative Resulting Agency Comment Spec In Lab Que Amaro MD CHEMISTRY ROCHELLE JENNINGS Performing Organization Address [facility] Co de Phone Number [facility] [place] [address] * (ABNORMAL) Magnesium (07/08/2016 8:56 AM EST) Pathologist [facility] Magnesium 0.62(L) 0.69 - 1.07 mmol/L [facility] Blood specimen (specimen) 07/08/2016 8:56 AM EST 07/08/2016 9:03 AM EST Narrative Resulting Agency Comment Spec In Lab Que Amaro MD CHEMISTRY ROCHELLE JENNINGS [facility] [place] [place] [address] * (ABNORMAL) Comprehensive metabolic panel (non-fasting) (07/08/2016 8:56 AM EST) [facility] Glucose 258(H) 65 - 199 mg/dL [facility] Comment:Diabetes: >=200 mg/d L plus symptoms Blood Urea Nitrogen 14 10 - 20 mg/dL [facility] Creatinine 1.28 0.80 - 1.50 mg/dL [facility] Comment: Please note that the pediatric reference intervals supplied above were not validated at [facility]. Results from pediatric patients should be interpreted in conjunction to the patient's age, height and muscle mass. Sodium 136 135 - 145 mmol/L [facility] Potassium 3.9 3.5 - 5.0 mmol/L [facility] Comment: Please note: ??Patients with WBC >100,000 may have falsely elevated Potassium levels. ??For accurate Potassium quantification in these patients send serum separator tube (gold top) for subsequent determinations. ??Contact the Clinical Chemistry Laboratory if there are any questions. Chloride 97(L) 98 - 107 mmol/L [facility] Carbon Dioxide 23 22 - 31 mmol/L [facility] Anion Gap 16(H) 5 - 15 mmol/L [facility] Calcium 9.7 8.5 - 10.5 mg/dL [facility] Protein, Total 7.7 6.1 - 8.0 gm/dL [facility] Albumin 4.0 3.2 - 5.2 gm/dL [facility] Aspartate Aminotransferase 23 0 - 39 unit/L [facility] Alanine Aminotransferase 24 0 - 55 unit/L [facility] Alkaline Phosphatase 82 40 - 120 unit/L [facility] Bilirubin, Total 1.6(H) 0.2 - 1.3 mg/dL [facility] Bilirubin, Direct 0.3 0.0 - 0.3 mg/dL [facility] Est Glomerular Filtration Rate 56(L) >=60 [facility] Comment: This [...] the following links into your internet browser. [email or web address] Blood specimen (specimen) 07/08/2016 8:56 AM EST 07/08/2016 9:03 AM EST Narrative Resulting Agency Comment Spec In Lab Que Amaro MD CHEMISTRY ROCHELLE JENNINGS [facility] Organization Address City/State/[facility] Co de Phone Number [facility] [place] [address] * Cholesterol, total (07/08/2016 8:56 AM EST) Cholesterol, Total 151 <=239 mg/dL [facility] Lipid Interpretation See Note [facility] Comment: Lipid management should be guided by a patient? s ASCVD risk, goals and preferences. ACC/AHA Guidelines recommend high intensity statin if clinical ASCVD or LDL greater than or equal to 190 mg/dL. http://circ.ahajournals.org/content/early/.cir.0220780387.58063.7a Adults aged 40-75 with LDL 70-189 mg/dL should have their 10 year ASCVD risk estimated with the ACC/AHA ASCVD risk steel estimator http://tools.acc.org/QOYVX-Vbbi-Owxuhxayk/ Statin should be discussed if risk greater [...] MD CHEMISTRY ROCHELLE JENNINGS Performing Organization Address City/State/[facility] Co de Phone Number [place] [phone] documented in this encounter Visit Diagnoses Diagnosis Kidney replaced by transplant documented in this encounter Care Teams Budder Relationship Specialty Start Date End Date Urbano Denis DO [address] [place] [address] PCP - General 09/03/12 03/17/22 Ruchi Valles RN Nurse Clinic Transplant Surgery 07/30/15 documented as of this encounter
--- OUTSIDE RECORDS SUMMARY | 2024-04-04 14:06 | XMS_ITS | Encounter Summary ---
Author Organization [facility] [place] [address] Care Team Providers Care Blocker And Polisher Name Role Phone Urbnao Denis DO Primary Care Provider [phone] Reason for Visit * Auth/Cert Specialty Diagnoses / Procedures Referred By Humberto t Referred To Contact Diagnoses Sepsis UROSEPSIS S/P TRANSPLANT Referral ID Status Reason Start Date Expiration Date Visits Re quested Visits Authorized [id number] 1 1 Encounter Details Date Type Department Care Team (Latest Contact Info) Description 06/22/2016 6:01 PM EST - 06/25/2016 11:22 AM EST Hospital Encounter [address] [place] [address] Tal Eagle MD [facility] [place] [address] ESRD (end stage renal disease) Discharge Disposition: [...] Hospital Course: Cody Bolden was admitted to [facility] [place]22[place]2016from OSH for concern for UTI. [...] that part of your care. Urology Clinic: [phone] PCP: @PCP@, . Please follow-up with your PCP in 1-2 weeks or sooner as needed. Issues to be followed-up with your PCP: 1. Scheduled Appointments: The following appointments have been scheduled on your behalf: Future Appointments and Orders Future Appointments Provider Department Dept Phone 07/08/2016 9:30 AM LAB, [facility] Lab 07/08/2016 10:30 AM Que Amaro MD Transplant [phone] 07/22/2016 9:30 AM LAB, [facility] Lab 07/22/2016 10:30 AM Que Amaro MD Transplant [phone] 09/15/2016 9:00 AM LAB, [facility] Lab 09/15/2016 10:00 AM Tal Eagle MD Transplant [phone] Future Orders Complete By Expires Urinalysis with reflex Culture [[id number] Custom] 07/01/2016 06/24/2017 Process Instructions: Scheduling Instructions: [...] 1 week. This can be done at [facility] or a facility closer to home. Ask for the results to be sent to [facility]. A follow-up appointment will be made to [...] the message. You can also reach the event promotions coordinator after hours by calling (ask for the event promotions coordinator on-call). General Instructions None Call your [...] managed by the Urologic Surgery Team at [facility]. If you have any questions or concerns, please feel free to contact us. Provider Contact Information: [facility] (after business hours): CC: Urbano Denis DO [phone] Signed: Jay Vargas MD 06/25/2016 I have [...] 1 week. This can be done at [facility] or a facility closer to home. Ask for the results to be sent to [facility]. A follow-up appointment will be made to [...] the message. You can also reach the event promotions coordinator after hours by calling (ask for the event promotions coordinator on-call). documented in this encounter Medications [...] Cultures: 06/22 NGTD Urine Cultures: 06/22 at [facility]: > 100k GNR 06/18 NGTD 06/22 NGTD [...] Klebsiella oxytoca in his urine culture at [facility]. Clinically improved on piperacillin/tazobactam, with negative cultures [...] Do not hesitate to page us at [phone] with any further questions or concerns. ? Franko Kim MD Infectious Disease Fellow Pager [phone] ID Attending I agree with impression and [...] - Zosyn - ID consult Heme - [facility] Endo - Hypothyroid - Synthroid Immunosuppression - [...] EXTREMITY performed by Que Amaro MD at [facility] OR ??? Pro transplantation of kidney N/A 09/16/2015 @KIDNEY TRANSPLANT, WITHOUT RECIPIENT NEPHRECTOMY performed by Franko Larkin MD at [facility] OR ??? Pro transplant, prep cadaver renal graft N/A 09/16/2015 @PREPARATION CADAVERIC RENAL ALLOGRAFT performed by Franko Larkin MD at [facility] OR ??? N/A 09/16/2015 ORGAN ACQUISITION RENAL, CADAVERIC performed by Franko Larkin MD at [facility] OR ??? Pro reimplant ureter, single ureter Left 05/20/2016 @URETERONEOCYSTOSTOMY ANASTOMOSIS OF SINGLE URETER TO BLADDER performed by Santosh Arredondo MD at [facility] OR ??? Pro reimplant ureter, single ureter N/A 05/20/2016 @URETERONEOCYSTOSTOMY ANASTOMOSIS OF SINGLE URETER TO BLADDER performed by Que Amaro MD at [facility] MEDICATIONS: No current facility-administered medications on file [...] Enrique Ferrell MD General Surgery PGY-1 Pager [phone] I reviewed all of the above findings [...] Conf 06/24/16 1509 Interdisciplinary Rounds/Family Conf Participants case operator * Plan of Care - Brenda Escalante [...] incontinence. No dysuria. He went to the [facility] ED and was found to be septic, so he was transferred to [facility]. Here, he was febrile but hemodynamically stable. [...] EXTREMITY performed by Que Amaro MD at [facility] OR ??? Pro transplantation of kidney N/A 09/16/2015 @KIDNEY TRANSPLANT, WITHOUT RECIPIENT NEPHRECTOMY performed by Franko Larkin MD at [facility] OR ??? Pro transplant, prep cadaver renal graft N/A 09/16/2015 @PREPARATION CADAVERIC RENAL ALLOGRAFT performed by Franko Larkin MD at [facility] OR ??? N/A 09/16/2015 ORGAN ACQUISITION RENAL, CADAVERIC performed by Franko Larkin MD at [facility] MA[facility] OR ??? Pro reimplant ureter, single ureter Left 05/20/2016 @URETERONEOCYSTOSTOMY ANASTOMOSIS OF SINGLE URETER TO BLADDER performed by Santosh Arredondo MD at [facility] OR ??? Pro reimplant ureter, single ureter N/A 05/20/2016 @URETERONEOCYSTOSTOMY ANASTOMOSIS OF SINGLE URETER TO BLADDER performed by Que Amaro MD at [facility] OR Prior To Admission Medications: [...] NGTD Urine Cultures: >100 k GNR at [facility] Radiology/Studies/Procedures: 05/20 Op Note Complex/hard/aida dissection of bladder/ureter from graft Graft ureter completely stuck in pelvis, dissected up into the renal pelvis. Flexible intraop ureteroscopy to confirm location Boari flap performed and anastomosed to proximal graft ureter. Tension free. Short JJ stent placed Inaja left ureter divided and dissected Assessment: Cody [...] 100k GNR in his urine culture at [facility]. Clinically improved on piperacillin/tazobactam, with negative cultures here. Most likely, his infection is related to the stent removal. We are awaiting final speciation and susceptibilities from the urine and [facility]. In the meantime, we recommend to stop vancomycin and to continue piperacillin/tazobactam Recommendations: - stop vancomycin - continue piperacillin/tazobactam - follow up cultures from [facility] This patient was seen and discussed with ID attending Dr. Plascencia. Recommendations discussed with primary treating team. ID consult service will continue to follow patient. Do not hesitate to page us at [phone] with any further questions or concerns. Franko Kim MD Infectious Disease Fellow Pager [phone] ID Attending Recurrent UTI previously ascribed to [...] states he has been attending HD in [place], [place], as well as, attending infusion suite. Health/Prescription Coverage: Primary Insurance: Medicare A+B Secondary Insurance: BCBS Prescription Coverage: BCBS Preferred Pharmacy: [facility] in [place], [place] Other: [facility] Primary Care Provider: Urbano Denis DO [phone] Patient/Caregiver Goals of Treatment: Resolve infection for [...] home with antibiotics. Aarti Appiah RN Pager: [phone] * Consult Note - Yeimi Elam - [...] transplant renal pelvis and ligation of left emmonak ureter in joint case with Urology and [...] Urology clinic uneventfully. He was transferred to [facility] last night after being admitted at OSH [...] EXTREMITY performed by Que Amaro MD at [facility] OR ??? Pro transplantation of kidney N/A 09/16/2015 @KIDNEY TRANSPLANT, WITHOUT RECIPIENT NEPHRECTOMY performed by Franko Larkin MD at [facility] OR ??? Pro transplant, prep cadaver renal graft N/A 09/16/2015 @PREPARATION CADAVERIC RENAL ALLOGRAFT performed by Franko Larkin MD at [facility] OR ??? N/A 09/16/2015 ORGAN ACQUISITION RENAL, CADAVERIC performed by Franko Larkin MD at [facility] OR ??? Pro reimplant ureter, single ureter Left 05/20/2016 @URETERONEOCYSTOSTOMY ANASTOMOSIS OF SINGLE URETER TO BLADDER performed by Santosh Arredondo MD at [facility] OR ??? Pro reimplant ureter, single ureter N/A 05/20/2016 @URETERONEOCYSTOSTOMY ANASTOMOSIS OF SINGLE URETER TO BLADDER performed by Que Amaro MD at [facility] OR Social History: Social History Social [...] PM EDT Office Visit Cardiology at [address] [phone] Jay Urban MD [facility] [place] [address] 04/15/2024 10:00 AM EDT Hospital Encounter Non[place] [phone] Arrived documented as of this encounter Procedures [...] (06/25/2016 7:57 AM EST) Tacrolimus 6.1 ng/mL [facility] Comment: Trough therapeutic: ??5-15 ng/mL Performed by ultra-performance liquid chromatography tandem mass spectrometry (UPLCMS/MS). Blood specimen (specimen) 06/25/2016 7:57 AM EST 06/25/2016 9:15 AM EST Narrative Resulting Agency Comment Spec In Lab Tal Eagle MD CHEMISTRY ORDERAB LES [facility] [place] [address] * Differential, Automated (06/24/2016 6:24 AM EST) Pathologist [facility] Neutrophil % 68.7 % [facility] Neutrophil Absolute 5.68 1.70 - 6.10 x10(3)/[facility] LAB[facility] Lymph % 16.3 % [facility] Lymphocytes Abs 1.4 0.9 - 3.2 x10(3)/[facility] LABOR[facility] Monocyte % 10.7 % [facility] Monocyte Abs 0.9 0.3 - 0.9 x10(3)/[facility] LABOR[facility] Eos % 3.5 % [facility] Eosinophils Abs 0.3 0.0 - 0.4 x10(3)/[facility] Basophil % 0.6 % [facility] Baso Absolute 0.0 0.0 - 0.1 x10(3)/[facility] LABORATORY Immature Gran % 0.20 % [facility] Comment: Immature granulocytes(IG's)percentage and absolute count will include metamyelocytes, myelocytes, and promyelocytes. Blood smears from CBCs yielding IG's will be scanned manually for concordance. If this scan disagrees with the automated IG or if promyelocytes are noted, a manual differential will be performed. Immature Gran Absolute 0.02 0.00 - 0.04 x10(3)/[facility] Blood specimen (specimen) 06/24/2016 6:24 AM EST 06/24/2016 6:37 AM EST Narrative Resulting Agency Comment Spec In Lab Tal Eagle MD HEMATOLOGY ORDERA BLES [facility] [place] [address] * (ABNORMAL) Hemogram (06/24/2016 6:24 AM EST) White Blood Cell 8.3 4.0 - 9.5 x10(3)/mc L [facility] Red Blood Cell 3.95(L) 4.58 - 5.54 x10(6)/mc L [facility] Hemoglobin 12.6(L) 13.7 - 16.5 gm/dL [facility] Hematocrit 36.0(L) 40.5 - 48.5 % [facility] Mean Cell Volume 91.1 82.9 - 93.1 fL [facility] Mean Cell Hemoglobin 31.9 27.5 - 32.1 pg [facility] Mean Cell Hemoglobin Concentration 35.0 32.0 - 35.7 gm/dL [facility] Platelet 139(L) 145 - 357 x10(3)/mc L [facility] RDW Standard Deviation 41.6 36.0 - 45.0 [facility] RDW coefficient of variation 12.5 11.4 - 13.8 % [facility] Mean Platelet Volume 9.7 7.6 - 12.9 fL [facility] NRBC% auto 0.0 % [facility] NRBC Absolute 0.000 0.000 - 0.000 x10(3)/mc L [facility] Blood specimen (specimen) 06/24/2016 6:24 AM EST 06/24/2016 6:37 AM EST Narrative Resulting Agency Comment Spec In Lab Tal Eagle MD HEMATOLOGY ORDERA BLES [facility] [place] [address] * (ABNORMAL) Basic Metabolic Panel (non-fasting) (06/24/2016 6:24 AM EST) Glucose 150 65 - 199 mg/dL [facility] Comment:Diabetes: >=200 mg/d L plus symptoms Blood Urea Nitrogen 16 10 - 20 mg/dL [facility] Creatinine 1.12 0.80 - 1.50 mg/dL [facility] Comment: Please note that the pediatric reference intervals supplied above were not validated at [facility]. Results from pediatric patients should be interpreted in conjunction to the patient's age, height and muscle mass. Sodium 137 135 - 145 mmol/L [facility] Potassium 3.5 3.5 - 5.0 mmol/L [facility] Comment: Please note: ??Patients with WBC >100,000 may have falsely elevated Potassium levels. ??For accurate Potassium quantification in these patients send serum separator tube (gold top) for subsequent determinations. ??Contact the Clinical Chemistry Laboratory if there are any questions. Chloride 95(L) 98 - 107 mmol/L [facility] Carbon Dioxide 26 22 - 31 mmol/L [facility] Anion Gap 16(H) 5 - 15 mmol/L [facility] Calcium 8.9 8.5 - 10.5 mg/dL [facility] Est Glomerular Filtration Rate >60 >=60 [facility] Comment: This estimated [...] the following links into your internet browser. [email or web address] Blood specimen (specimen) 06/24/2016 6:24 AM EST 06/24/2016 6:37 AM EST Narrative Resulting Agency Comment Spec In Lab Tal Eagle MD CHEMISTRY ORDERAB LES Performing Organization Address [facility] Co de Phone Number [facility] [place] [address] * Tacrolimus level (06/23/2016 8:04 AM EST) Pathologist [facility] Tacrolimus <3.0 ng/mL [facility] Comment: Trough therapeutic: ??5-15 ng/mL Performed by ultra-performance liquid chromatography tandem mass spectrometry (UPLCMS/MS). Blood specimen (specimen) 06/23/2016 8:04 AM EST 06/23/2016 11:47 AM EST Narrative Resulting Agency Comment Spec In Lab Tal Eagle MD CHEMISTRY ORDERAB LES Performing Organization Address [facility] de Phone Number [facility] [place] [address] * Scan, Peripheral Blood (06/22/2016 10:00 PM EST) Pathologist [facility] Plat estimate Decreased [facility] RBC Morphology Normal [facility] Dohle Bodies Present [facility] Plat, Giant Less than 1 /HPF [facility] Blood specimen (specimen) 06/22/2016 10:00 PM EST 06/22/2016 10:07 PM EST Narrative Resulting Agency Comment Spec In Lab Tal Eagle MD HEMATOLOGY ORDERA BLES Performing Organization Address [facility] Co de Phone Number [facility] [place] [address] * (ABNORMAL) Differential, Automated (06/22/2016 10:00 PM EST) Pathologist [facility] Neutrophil % 79.6 % [facility] Neutrophil Absolute 11.01(H) 1.70 - 6.10 x10(3)/mc L [facility] Lymph % 7.2 % [facility] Lymphocytes Abs 1.0 0.9 - 3.2 x10(3)/[facility] Monocyte % 12.4 % [facility] Monocyte Abs 1.7(H) 0.3 - 0.9 x10(3)/[facility] Eos % 0.3 % [facility] Eosinophils Abs 0.0 0.0 - 0.4 x10(3)/[facility] Basophil % 0.2 % [facility] Baso Absolute 0.0 0.0 - 0.1 x10(3)/[facility] [...] Immature Gran Absolute 0.04 0.00 - 0.04 x10(3)/[facility] Blood specimen (specimen) 06/22/2016 10:00 PM EST 06/22/2016 10:07 PM EST Narrative Resulting Agency Comment Spec In Lab Tal Eagle MD HEMATOLOGY ORDERA BLES Performing Organization Address City/State/[facility] Co de Phone Number [facility] [place] [address] * (ABNORMAL) Hemogram (06/22/2016 10:00 PM EST) White Blood Cell 13.8(H) 4.0 - 9.5 x10(3)/[facility] Red Blood Cell 4.03(L) 4.58 - 5.54 x10(6)/[facility] Hemoglobin 12.8(L) 13.7 - 16.5 gm/dL [facility] Hematocrit 36.5(L) 40.5 - 48.5 % [facility] Mean Cell Volume 90.6 82.9 - 93.1 fL [facility] Mean Cell Hemoglobin 31.8 27.5 - 32.1 pg [facility] Mean Cell Hemoglobin Concentration 35.1 32.0 - 35.7 gm/dL [facility] Platelet 138(L) 145 - 357 x10(3)/mc L [facility] RDW Standard Deviation 41.4 36.0 - 45.0 fL [facility] RDW coefficient of variation 12.4 11.4 - 13.8 % [facility] Mean Platelet Volume 9.8 7.6 - 12.9 fL [facility] NRBC% auto 0.0 % [facility] NRBC Absolute 0.000 0.000 - 0.000 x10(3)/mc L [facility] Blood specimen (specimen) 06/22/2016 10:00 PM EST 06/22/2016 10:07 PM EST Narrative Resulting Agency Comment Spec In Lab Tal Eagle MD HEMATOLOGY ORDERA BLES Performing Organization Address City/[facility] de Phone Number [facility] [place] [address] * (ABNORMAL) APTT (06/22/2016 10:00 PM EST) [facility] Signature Partial Thromboplastin Time 36(H) 25 - 35 sec [facility] Comment: The recommended therapeutic range for full dose, unfractionated heparin at [facility] is 80 ? 114 seconds. The use of the anti-Xa (heparin) level rather than the PTT is recommended for monitoring anticoagulation intensity in critically ill patients receiving unfractionated heparin by continuous IV infusion. Blood specimen (specimen) 06/22/2016 10:00 PM EST 06/22/2016 10:07 PM EST Narrative Resulting Agency Comment Spec In Lab Tal Eagle MD HEMATOLOGY ORDERA BLES [facility] [place] [address] * Prothrombin Time (06/22/2016 10:00 PM EST) Pathologist [facility] Prothrombin Time 15.0 12.0 - 15.0 sec [facility] Comment: An INR [...] International Normalization Ratio 1.1 0.9 - 1.1 [facility] Blood specimen (specimen) 06/22/2016 10:00 PM EST 06/22/2016 10:07 PM EST Narrative Resulting Agency Comment Spec In Lab Tal Eagle MD HEMATOLOGY ORDERA BLES Performing Organization Address [facility] Co de Phone Number [facility] [place] [address] * Lactate, whole blood, send to lab (06/22/2016 8:51 PM EST) Pathologist [facility] Lactate WB 0.9 0.5 - 2.2 mmol/L [facility] Blood specimen (specimen) 06/22/2016 8:51 PM EST 06/22/2016 8:59 PM EST Narrative Resulting Agency Comment Spec In Lab Tal Eagle MD CHEMISTRY ORDERAB LES Performing Organization Address [facility] Co de Phone Number [facility] [place] [address] * EKG 12 Lead (06/22/2016 8:24 PM EST) Ventricular rate 85 BPM MUSE SYSTEM Atrial Rate 85 BPM MUSE SYSTEM P-R Interval 162 ms MUSE SYSTEM QRS Duration 96 ms MUSE SYSTEM Q-T Interval 370 ms MUSE SYSTEM QTC Calculated (Bezet) 440 ms MUSE SYSTEM Calculated P [place] 1 degrees MUSE SYSTEM Calculated R [place] -54 degrees MUSE SYSTEM Calculated T [place] -5 degrees MUSE SYSTEM INTERPRETATION Sinus rhythm [...] EST) Glucose 137 65 - 199 mg/dL [facility] Comment:Diabetes: >=200 mg/d L plus symptoms Blood Urea Nitrogen 15 10 - 20 mg/dL [facility] Creatinine 1.23 0.80 - 1.50 mg/dL [facility] Comment: Please note that the pediatric reference intervals supplied above were not validated at [facility]. Results from pediatric patients should be interpreted in conjunction to the patient's age, height and muscle mass. Sodium 132(L) 135 - 145 mmol/L [facility] [...] mmol/L [facility] Anion Gap 15 5 - 15 mmol/L [facility] Calcium 9.0 8.5 - 10.5 mg/dL [facility] Protein, Total 7.4 6.1 - 8.0 gm/dL [facility] Albumin 3.4 3.2 - 5.2 gm/dL [facility] Aspartate Aminotransferase Not Perf 0 - 39 unit/L [facility] Comment: Unable to quantitate due to sample hemolysis. ??Sample redraw suggested. called to Mark Barba Alanine Aminotransferase 13 0 - 55 unit/L [facility] Alkaline Phosphatase 59 40 - 120 unit/L [facility] Bilirubin, Total 2.4(H) 0.2 - 1.3 mg/dL [facility] Bilirubin, Direct 0.5(H) 0.0 - 0.3 mg/dL [facility] Est Glomerular Filtration Rate 59(L) >=60 [facility] Comment: This [...] the following links into your internet browser. [email or web address] Blood specimen (specimen) 06/22/2016 8:16 PM EST 06/22/2016 8:26 PM EST Narrative Resulting Agency Comment Spec In Lab Tal Eagle MD CHEMISTRY ORDERAB LES Performing Organization Address City/[facility]/ZIP Co de Phone Number [facility] [place] [address] * Blood culture (06/22/2016 8:16 PM EST) Blood Culture No growth at 5 days. [facility] Blood specimen (specimen) 06/22/2016 8:16 PM EST 06/22/2016 8:44 PM EST Comment:DRAW BLOOD CULTURES BEFORE ADMINISTERING ANTIBIOTICS Narrative Resulting Agency Comment Spec In Lab Tal Eagle MD MICROBIOLOGY - BL OOD ORDERABLES Performing Organization Address [facility]/ZIP Co de Phone Number [facility] [place] [address] * Blood culture (06/22/2016 8:16 PM EST) Blood Culture No growth at 5 days. [facility] Blood specimen (specimen) 06/22/2016 8:16 PM EST 06/22/2016 8:44 PM EST Comment:DRAW BLOOD CULTURES BEFORE ADMINISTERING ANTIBIOTICS Narrative Resulting Agency Comment Spec In Lab Tal Eagle MD MICROBIOLOGY - BL OOD ORDERABLES Performing Organization Address City/[facility]/ZIP Co de Phone Number [facility] [place] [address] * Urine culture (06/22/2016 8:12 PM EST) Urine Culture No growth (Less than 1,000 cfu/ml). [facility] Urine specimen obtained by clean catch procedure (specimen) 06/22/2016 8:12 PM EST 06/22/2016 8:59 PM EST Narrative Resulting Agency Comment Spec In Lab Tal Eagle MD MICROBIOLOGY - GE NERAL ORDERABLES Performing Organization Address City/[facility]/ZIP Co de Phone Number [facility] [place] [address] * Urine Hold (06/22/2016 8:12 PM EST) Hold, Urine Sample in lab. [facility] Urine specimen (specimen) Urine / Unknown 06/22/2016 8:12 PM EST 06/22/2016 8:35 PM EST Tal Eagle MD URINE ORDERABLES [facility] [place] [address] * (ABNORMAL) Urinalysis with reflex Culture (06/22/2016 8:12 PM EST) Glucose, Urine Dipstick Negative Negative mg/dL [facility] [...] [place] [facility] pH, Urn (dipstick) 6.0 5.0 - 8.0 [facility] Blood, Urine Dipstick Small(A) Negative mg/dL [facility] Ketone, Urine Dipstick Negative Negative mg/dL [facility] Nitrite, Urine Dipstick Negative Negative [facility] Leukocytes, Urine Dipstick Large(A) Negative [facility] Appearance, Urine Dipstick Clear Clear [facility] Specific [place] Urine Automated 1.011 1.002 - 1.030 [facility] Color, Urine Dipstick Yellow Yellow [facility] RBC, Urine 4(H) 0 - 3 /HPF [facility] WBC, Urine 42(H) 0 - 3 /HPF [facility] WBC Clumps, Urine Rare(A) None /HPF [facility] Bacteria, Urine Rare(A) None /HPF [facility] Renal Epithelial Cells, Urine <1(H) <=0 /HPF [facility] Reflex to Culture Yes [facility] Urine specimen obtained by clean catch procedure (specimen) 06/22/2016 8:12 PM EST 06/22/2016 8:34 PM EST Narrative Resulting Agency Comment Spec In Lab Tal Eagle MD URINE ORDERABLES [facility] [place] [address] documented in this encounter Visit Diagnoses Diagnosis [...] Oral, 2 TIMES DAILY, First dose on 06/22/16 [...] Intravenous, EVERY 8 HOURS, First dose on 06/22/16 at 2015, Until Discontinued, Administer over 4 [...] WITH MEALS & NIGHTLY, First dose on 06/23/16 at 1800, Until Discontinued, Dissolve tablets in [...] Intravenous, 2 TIMES DAILY, First dose on 12/18/16 at 2100, Until Discontinued, Routine Given 06/25/2016 8:08 AM EST 5 mLs Given 06/24/2016 8:39 PM EST 5 mLs Given 06/24/2016 9:22 AM EST 10 mLs sodium chloride 0.9% 1,000 mL IV bolus Intravenous, ONCE, 1 dose, On 06/22/16 at 2015 Given 06/22/2016 8:16 PM EST [...] Intravenous, EVERY 12 HOURS, First dose on 06/23/16 at 0400, Until Discontinued, Maximum infusion rate is 1 gram/hour. If flushing of the face, neck, upper body, arms, and/or back occurs decrease infusion rate by 50% to reduce the severity of symptoms. This medication may have an associated drug lab level. Please see MAR for scheduled level. Warning Vesicant/Irritant Medication , Routine, Indication for (Active or Suspected): Bacteremia/Sepsis Given 06/23/2016 3:05 AM EST 1,000 mg [...] for scheduled level. Warning Vesicant/Irritant Medication , STAT, Indication for (Active or Suspected): Urinary Tract/Pyelonephritis Given 06/23/2016 4:16 PM EST 1,0 00 mg documented in this encounter Active and Recently Administered Medications Times are shown in EST. Scheduled Medication Order 06/23/2016 06/24/2016 06/25/2016 ascorbic acid (vitamin C) (VITAMIN C) tablet 500 mg 500 mg, Oral, 3 TIMES DAILY, First dose on Thu06/24/16 at 1000, Until Discontinued 1235 (Given - Provider: Ryan Fuchs RN)1501 (Given - Provider: Ryan Fuchs RN)7 (Given - Provider: Sonia Collins RN) 0807 (Given - Provider: Gonzalo Granados, JADEN) aspirin chewable tablet 81 mg (CANCELED) 81 mg, Oral, DAILY, First dose on Thu06/22/16 at 2015, Until Discontinued, Routine 911 (Given - Provider: Sonia Collins RN) calciTRIol (ROCALTROL) capsule 0.5 mcg 0.5 mcg, Oral, DAILY, First dose on Thu06/23/16 at 0900, Until Discontinued, Routine 911 (Given - Provider: Sonia Collins RN) 09 (Given - Provider: Ryan Fuchs RN) 0807 [...] Fuchs RN) 0806 (Given - Provider: Gonzalo Granados, JADEN) levothyroxine (SYNTHROID) tablet 100 mcg 100 [...] 2100 (Given - Provider: Brenda Escalante RN) 09 (Given - Provider: Ryan Fuchs RN)2036 (Given - Provider: Sonia Collins RN) 0807 (Given - Provider: Gonzalo Granados RN) mycophenolate (CELLCEPT) capsule 250 mg 250 mg, Oral, 2 TIMES DAILY, First dose on Thu06/22/16 at 2100, Until Discontinued, DO NOT CRUSH OR OPEN, Routine 0912 (Given - Provider: Sonia Collins RN)2099 (Given - Provider: Brenda Escalante RN) 09 (Given - Provider: Rayn Fuchs RN)2035 (Given - Provider: Sonia Collins RN) 0807 (Given - Provider: Gonzalo Granados, JADEN) piperacillin-tazobactam (ZOSYN) 3.375 g in dextrose 5% 50 mL 3.375 g, Intravenous, EVERY 8 HOURS, First dose on Thu06/22/16 at 2015, Until Discontinued, Administer over 4 Hours, Warning Vesicant/Irritant Medication , Indication for (Active or Suspected): Urinary Tract/Pyelonephritis 0423 (Given - Provider: Brenda J Escalante, RN)1138 (Given - Provider: Sonia Collins RN)2126 (Given - Provider: Brenda Escalante RN) 034 (Given - Provider: Brenda Escalante RN)1236 (Given [...] RN)2035 (Given - Provider: Sonia Collins RN) 0806 (Given - Provider: Gonzalo Granados RN) sodium chloride 0.9 % flush 5 mL 5 mL, Intravenous, 2 TIMES DAILY, First dose on 06/22/16 at 2100, Until Discontinued, Routine 09 (Given - Provider: Sonia Collins RN)2127 (Given - Provider: Brenda Escalante RN) 09 (Given - Provider: Ryan Fuchs RN)2038 (Given - Provider: Sonia Collins RN) 0808 (Given - Provider: Gonzalo Granados, JADEN) tacrolimus (PROGRAF) capsule 1 mg 1 mg, Oral, DAILY, First dose on Thu06/23/16 at 0900, Until Discontinued, Routine 09 (Given - Provider: Sonia Collins RN) 0922 (Given - Provider: Ryan Fuchs RN) 0806 (Given - Provider: Gonzalo Granados RN) tacrolimus [...] Routine, Indication for (Active or Suspected): Bacteremia/Sepsis 030 (Given - Provider: Brenda Escalante RN) vancomycin 1 g in 0.9 % [...] for scheduled level. Warning Vesicant/Irritant Medication , STAT, Indication for (Active or Suspected): Urinary Tract/Pyelonephritis 1616 (Given - Provider: Sonia Collins RN) PRN Medication Order 06/23/2016 06/24/2016 06/25/2016 lidocaine (XYLOCAINE) 10 mg/mL (1 %) injection 3 mg 3 mg (0.3 mL), Subcutaneous, ONCE PRN, 1 dose, Starting on Thu06/22/16 at 1956, Until Thu06/25/16 at 1322, for discomfort with PIV insertion, Routine oxyCODONE (ROXICODONE) immediate release tablet 5 mg 5 mg, Oral, EVERY 4 HOURS PRN, Starting on 06/22/16 at 1956, Until Thu06/25/16 at 1322, Pain, Routine 1951 (Given - Provider: Aubrey T Abraham, RN) 0346 (Given - Provider: Brenda Escalante, JADEN)09 (Given - Provider: Ryan Fuchs, JADEN)2036 (Given - Provider: Sonia Collins, JADEN) sodium chloride 0.9 % flush 5-20 mL [...] for scheduled level. Warning Vesicant/Irritant Medication , STAT, Indication for (Active or Suspected): Urinary Tract/Pyelonephritis And Vancomycin, trough (CANCELED) New collection, Timed, [...] draw. documented in this encounter Care Teams Blocker And Polisher Relationship Specialty Start Date End Date Urbano Denis DO [address] [place] [address] [address] [place] [address] PCP - General 09/03/12 03/17/22 Ruchi Valles RN Nurse Clinic Transplant Surgery 07/30/15 documented as of this encounter
--- OUTSIDE RECORDS SUMMARY | 2024-04-04 14:06 | XMS_ITS | Encounter Summary ---
[place] [address] Care Team Providers Care Plier Worker Name Role Phone AdeelUrbano toscano Primary Care Provider Reason for Visit * Reason Onset Date Comments Medication Refill 06/18/2016 Encounter Details Date Type Department Care Team (Late st Contact Info) Description 06/18/2016 Refill [place] [address] Joanne Nogueira CMA Social History Tobacco Use [...] 8:43 AM EST This prescription destroyed by Casengoitter in the presents of Martina Quezada LPN documented in this encounter Plan of Treatment Upcoming Encounters Date Type Department Care Team (Late st Contact Info) Description 04/08/2024 1:40 PM EDT Office Visit Cardiology at [address] [phone] Jay Urban MD [facility] [address] 04/15/2024 10:00 AM EDT Hospital Encounter Non-Invasive [place] [address] Arrived documented as of this encounter Visit Diagnoses Not on filedocumented in this encounter Care Teams Plier Worker Relationship Specialty Start Date End Date Urbano Denis DO [address] [place] [address] PCP - General 09/03/12 03/17/22 Hai STANLEY,Ruchi Nurse Clinic Transplant Surgery 07/30/15 documented as of this encounter
--- OUTSIDE RECORDS SUMMARY | 2024-04-04 14:06 | XMS_ITS | Encounter Summary ---
Author Organization [facility] [place] [address] Care Team Providers Care Woodwind Instrument Repairer Name Role Phone Urbano Denis DO Primary Care Provider [phone] Reason for Visit * Reason Comments Kidney Transplant Follow-up s/p primary repair of distal transplant ureteral strenosis Immunotherapy Encounter Details Date Type Department Care Team (Late st Contact Info) Description 08/12/2016 10:00 AM EST Office Visit [place] [address] Tal Eagle MD [facility] [place] [address] Kidney replaced by transplant; Type 2 diabetes [...] Camara, DO - 08/12/2016 10:00 AM EST [facility] Transplant Nephrology Follow Up ?? Cody Bolden [id number] ?? Transplant ID: ?? Date:? 08/12/2016 [...] --> Dina DM2: -uncontrolled -referral to Endocrinology -informatics nurse specialist met with the patient and made recommendations regarding dietary changes RTC in 1 month Tanmay Camara DO Nephrology Fellow [facility] I reviewed all of the above findings and assessment of Dr. Camara, edited the above note to reflect my assessment and examination and formulated the recommendations which accurately reflect mine. * Herlinda Bell RD - 08/12/2016 10:00 AM EST [facility] Post Transplant Nutrition Follow Up Date: 08/13/2016 Patient: Cody Bolden Transplant Date: 09/16/15 [place] organ UNOS diagnosis: Transplant: Mr. Cody Bolden [...] in BG and spilling in urine. This sign writer hand discussed this with patient and counseled him on limiting his carbohydrate intake per meal to ~60gms. This sign writer hand discussed carbohydrate choices to equal 60gms or so per meal and rationale. This sign writer hand provided printed information on what we discussed [...] PM EDT Office Visit Cardiology at [address] [address] Jay Urban MD [facility] [place] [address] 04/15/2024 10:00 AM EDT Hospital Encounter Non-Invasive [place] [address] Arrived documented as of this encounter Goals [...] Reticulocyte % 2.5 0.7 - 2.6 % [facility] Retic Abs # 0.130(H) 0.030 - 0.120 x10(6)/mc L [facility] Immature Retic% 9.1 0.0 - 15.6 % [facility] Reticulated Hgb 36.1 31.3 - 40.2 pg [facility] Blood specimen (specimen) 08/12/2016 9:31 AM EST 08/12/2016 9:38 AM EST Narrative Resulting Agency Comment Spec In Lab Tal Eagle MD HEMATOLOGY ORDERA BLES [facility] [place] [address] documented in this encounter Visit Diagnoses Diagnosis Kidney replaced by transplant Type 2 diabetes mellitus with complication, without long-term current use of insulin Immunosuppression Unspecified disorder of immune mechanism Essential hypertension Unspecified essential hypertension Weight increase Abnormal weight gain CAH (chronic active hepatitis) Other chronic hepatitis documented in this encounter Care Teams Woodwind Instrument Repairer Relationship Specialty Start Date End Date Urbano Denis DO [address] [place], [place] [address]Y [facility] [address] [place] [address] PCP - General 09/03/12 03/17/22 Hai STANLEY,Ruchi Nurse Clinic Transplant Surgery 07/30/15 documented as of this encounter
--- OUTSIDE RECORDS SUMMARY | 2024-04-04 14:06 | XMS_ITS | Encounter Summary ---
Author Organization [facility] Address [facility] [place] [address] Care Team Providers Care Superintendent Division Name Role Phone Adeel Urbano KIRBY Primary Care Provider [phone] Reason for Visit * Reason Comments Follow-up Encounter Details Date Type Department Care Team (Late st Contact Info) Description 07/30/2016 11:30 AM EST Office Visit [place] [address] Franko Kim MD [facility] [place] [address] Chronic hepatitis C without hepatic coma Social [...] fibrosis. On 01/04/16, his viral load was [id number]. He feels well today. Has not had [...] 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 On 01/04/16, hisviral load was [id number]. On 07/08, he had normal liver tests [...] Yuliet Kim MD Infectious Disease Fellow Pager [phone] * Aubrey Horvath MD - 07/30/2016 11:30 AM EST Attending Addendum: I have seen and examined the patient, reviewed the data and agree with the note by Dr. Tipton. documented in this encounter Plan of Treatment Upcoming Encounters Date Type Department Care Team (Late st Contact Info) Description 04/08/2024 1:40 PM EDT Office Visit Cardiology at [address] [phone] Jay Urban MD [facility] [place] [address] 04/15/2024 10:00 AM EDT Hospital Encounter Non-Invasive [place] [phone] Arrived documented as of this encounter Procedures [...] EST) Glucose 200(H) 65 - 199 mg/dL [facility] Comment:Diabetes: >=200 mg/d L plus symptoms Blood Urea Nitrogen 15 10 - 20 mg/dL [facility] Creatinine 1.24 0.80 - 1.50 mg/dL [facility] Comment: Please note that the pediatric reference intervals supplied above were not validated at [facility]. Results from pediatric patients should be interpreted in conjunction to the patient's age, height and muscle mass. Sodium 141 135 - 145 mmol/L [facility] Potassium 4.2 3.5 - 5.0 mmol/L [facility] Comment: Please note: ??Patients with WBC >100,000 may have falsely elevated Potassium levels. ??For accurate Potassium quantification in these patients send serum separator tube (gold top) for subsequent determinations. ??Contact the Clinical Chemistry Laboratory if there are any questions. Chloride 101 98 - 107 mmol/L [facility] Carbon Dioxide 26 22 - 31 mmol/L [facility] Anion Gap 14 5 - 15 mmol/L [facility] Calcium 9.7 8.5 - 10.5 mg/dL [facility] Protein, Total 7.8 6.1 - 8.0 gm/dL [facility] Albumin 4.2 3.2 - 5.2 gm/dL [facility] Aspartate Aminotransferase 25 0 - 39 unit/L [facility] Alanine Aminotransferase 32 0 - 55 unit/L [facility] Alkaline Phosphatase 65 40 - 120 unit/L [facility] Bilirubin, Total 1.8(H) 0.2 - 1.3 mg/dL [facility] Bilirubin, Direct 0.4(H) 0.0 - 0.3 mg/dL [facility] Est Glomerular Filtration Rate 58(L) >=60 [facility] Comment: [...] the following links into your internet browser. [email or web address] Blood specimen (specimen) 07/30/2016 1:06 PM EST 07/30/2016 1:13 PM EST Narrative Resulting Agency Comment Spec In Lab Aubrey Horvath MD CHEMISTRY ORDERAB LES [facility] [place] [address] * Hepatitis C RNA, quantitative, PCR (07/30/2016 1:06 PM EST) HCV Viral Load 443,901 IU/mL [facility] HCV Viral Load Result: [id number] IU/mL Indication for Study: Hepatitis C Infection [...] Laboratory. Gibson Good, Ph.D. Director, Molecular Pathology [facility] Comment: [VERIFIED DATE]08.05.16 Verified By:Fatemeh Garcia (Electronic Signature) Blood specimen (specimen) 07/30/2016 1:06 PM EST 08/04/2016 9:12 AM EST Narrative Resulting Agency Comment Spec In Lab Aubrey Horvath MD MOLECULAR ORDERAB LES [facility] [place] [address] documented in this encounter Visit Diagnoses Diagnosis Chronic hepatitis C without hepatic coma documented in this encounter Care Teams Superintendent Division Relationship Specialty Start Date End Date Urbano Denis DO [address] [place] [address] [address] [place] [address] PCP - General 09/03/12 03/17/22 Ruchi Valles RN Nurse Clinic Transplant Surgery 07/30/15 documented as of this encounter
--- OUTSIDE RECORDS SUMMARY | 2024-04-04 14:06 | XMS_ITS | Encounter Summary ---
Author Organization [facility] Address [facility] [place] [address] Care Team Providers Care Solderer Electronic Name Role Phone Urbano Denis DO Primary Care Provider [phone] Reason for Visit * Reason Comments Follow-up Encounter Details Date Type Department Care Team (Late st Contact Info) Description 06/18/2016 1:20 PM EST [place] [address] Santosh Arredondo MD [facility] [place] [address] S/P kidney transplant (Primary Dx) Social History [...] flap. He also underwent ligatio of the [place] LEFT ureter 09/17/2015 Donor renal transplant for [...] the renal pelvis with ligation of the [place] ureter. 05/28/2016 Discharged after post op course [...] ??? Hematuria PSHx Bilateral inguinal hernias with [id number] Shoulder surgery Knee arthroscopy Vasectomy Medications: Reviewed [...] sp donor transplantation.sp [place] flap. Ligation of [place] left ureter #2: Hx of staph and [...] PM EDT Office Visit Cardiology at [address] [address] Jay Urban MD [facility] [place] [address] 04/15/2024 10:00 AM EDT Hospital Encounter Non-[place] [phone] Arrived documented as of this encounter Procedures [...] transplant documented in this encounter Care Teams Solderer Electronic Relationship Specialty Start Date End Date Urbano Denis DO [address] [place] [address] PCP - General 09/03/12 03/17/22 Ruchi Valles RN Nurse Clinic Transplant Surgery 07/30/15 documented as of this encounter
--- OUTSIDE RECORDS SUMMARY | 2024-04-04 14:06 | XMS_ITS | Encounter Summary ---
Author Organization [facility] [place] [address] Care Team Providers Care Hospital Unit Coordinator Name Role Phone AdeelUrbano toscano Primary Care Provider Encounter Details Date Type Department Care Team (Late st Contact Info) Description 08/08/2016 Orders [place] [phone] Franko Kim MD [facility] [address] Chronic hepatitis C without hepatic coma Social [...] PM EDT Office Visit Cardiology at [address] [phone] Jay Urban MD [facility] [place] [address] 04/15/2024 10:00 AM EDT Hospital Encounter Non-[place] [address] Arrived documented as of this encounter Visit Diagnoses Diagnosis Chronic hepatitis C without hepatic coma documented in this encounter Care Teams Hospital Unit Coordinator Relationship Specialty Start Date End Date Adeel DO Urbano [address] [place] [address] PCP - General 09/03/12 03/17/22 Ruchi Valles RN Nurse Clinic Transplant Surgery 07/30/15 documented as of this encounter
--- OUTSIDE RECORDS SUMMARY | 2024-04-04 14:06 | XMS_ITS | Encounter Summary ---
Author Organization [facility] [place] [address] Care Team Providers Care Dental Office Receptionist Name Role Phone Adeel Urbano KIRBY Primary Care Provider Encounter Details Date Type Department Care Team (Late st Contact Info) Description 07/02/2016 Orders Only [place] [address] Samia Ecsalante, RN Recurrent UTI (urinary tract infection); H/O [...] PM EDT Office Visit Cardiology at [address] [phone] Jay Urban MD [facility] [place] [address] 04/15/2024 10:00 AM EDT Hospital Encounter Non-[place]vasive [place] [address] Arrived documented as of this encounter Visit Diagnoses Diagnosis Recurrent UTI (urinary tract infection) Urinary tract infection, site not specified H/O kidney transplant Kidney replaced by transplant documented in this encounter Care Teams Dental Office Receptionist Relationship Specialty Start Date End Date Urbano Denis DO [address] [place] [address] PCP - General 09/03/12 03/17/22 Ruchi Valles RN Nurse Clinic Transplant Surgery 07/30/15 documented as of this encounter
--- OUTSIDE RECORDS SUMMARY | 2024-04-04 14:06 | XMS_ITS | Encounter Summary ---
Author Organization Formerly [facility] [place] [address] Care Team Providers Care Tool Room Supervisor Name Role Phone Adeel Urbano KIRBY Primary Care Provider Encounter Details Date Type Department Care Team (Late st Contact Info) Description 08/06/2016 Orders Only [place] [address] Dominique Jackson RN Kidney transplant recipient Social [...] PM EDT Office Visit Cardiology at [address] [phone] Jay Urban MD [facility] [address] 04/15/2024 10:00 AM EDT Hospital Encounter [place] [address] Arrived documented as of this encounter Results * (ABNORMAL) Protein/Creatinine Ratio, urine (08/12/2016 9:50 AM EST) Creatinine, Urine 132 mg/dL [facility] Protein, Urine 29(H) 0 - 12 mg/dL [facility] Protein / Creatinine Ratio, Urine 0.2 ratio [facility] Urine specimen (specimen) 08/12/2016 9:50 AM EST 08/12/2016 9:57 AM EST Narrative Resulting Agency Comment Spec In Lab Tal Eagle MD URINE ORDERABLES [facility] [place] [address] * (ABNORMAL) Urinalysis with reflex Culture (08/12/2016 9:50 AM EST) Glucose, Urine Dipstick >=500(Critic al) Negative mg/dL [facility] Comment: Urinalysis result NOT critical without a combination of Glucose greater than or equal to 500mg/dl AND Ketones greater than or equal to 80mg/dl. Protein, Urine Dipstick 30(A) Negative mg/dL [facility] Ketone, Urine Dipstick 5(A) Negative mg/dL [facility] Nitrite, Urine Dipstick Negative Negative [facility] Leukocytes, Urine Dipstick Negative Negative [facility] Appearance, Urine Dipstick Clear Clear [facility] Specific [place] Urine Automated 1.023 1.002 - 1.030 [facility] Color, Urine Dipstick Yellow Yellow [facility] RBC, Urine 2 0 - 3 /HPF [facility] WBC, Urine 5(H) 0 - 3 /HPF [facility] Reflex to Culture No [facility] Urine specimen (specimen) 08/12/2016 9:50 AM EST 08/12/2016 9:57 AM EST Narrative Resulting Agency Comment Spec In Lab Tal Eagle MD URINE ORDERABLES [facility] [place] [address] * (ABNORMAL) Comprehensive metabolic panel (non-fasting) (08/12/2016 9:31 AM EST) Glucose 330(H) 65 - 199 mg/dL [facility] Comment:Diabetes: >=200 mg/d L plus symptoms Blood Urea Nitrogen 14 10 - 20 mg/dL [facility] Creatinine 1.29 0.80 - 1.50 mg/dL [facility] Comment: Please note that the pediatric reference intervals supplied above were not validated at [facility]. Results from pediatric patients should be interpreted in conjunction to the patient's age, height and muscle mass. Sodium 135 135 - 145 mmol/L [facility] Potassium 4.2 3.5 - 5.0 mmol/L [facility] Carbon Dioxide 24 22 - 31 mmol/L [facility] Anion Gap 15 5 - 15 mmol/L [facility] Calcium 9.9 8.5 - 10.5 mg/dL [facility] Protein, Total 7.7 6.1 - 8.0 gm/dL [facility] Albumin 4.3 3.2 - 5.2 gm/dL [facility] Aspartate Aminotransferase 22 0 - 39 unit/L [facility] Alanine Aminotransferase 28 0 - 55 unit/L [facility] Alkaline Phosphatase 74 40 - 120 unit/L [facility] Bilirubin, Total 1.4(H) 0.2 - 1.3 mg/dL [facility] Bilirubin, Direct 0.3 0.0 - 0.3 mg/dL [facility] Est Glomerular Filtration Rate 56(L) >=60 [facility] [...] the following links into your internet browser. [email or web address] Blood specimen (specimen) 08/12/2016 9:31 AM EST 08/12/2016 9:38 AM EST Narrative Resulting Agency Comment Spec In Lab Tal Eagle MD CHEMISTRY ORDERAB LES Performing Organization Address [facility] Co de Phone Number [facility] [place] [address] * Uric acid (08/12/2016 9:31 AM EST) Uric Acid 6.3 3.5 - 8.5 mg/dL [facility] Blood specimen (specimen) 08/12/2016 9:31 AM EST 08/12/2016 9:38 AM EST Narrative Resulting Agency Comment Spec In Lab Tal Eagle MD CHEMISTRY ORDERAB LES [facility] [place] [address] * Cholesterol, total (08/12/2016 9:31 AM EST) Cholesterol, Total 126 <=239 mg/dL [facility] Lipid Interpretation See Note [facility] Comment: Lipid management should be guided by a patient? s ASCVD risk, goals and preferences. ACC/AHA Guidelines recommend high intensity statin if clinical ASCVD or LDL greater than or equal to 190 mg/dL. http://circ.ahajournals.org/content/early/.cir.3535933427.99671.7a Adults aged 40-75 with LDL 70-189 mg/dL should have their 10 year ASCVD risk estimated with the ACC/AHA ASCVD risk insulation estimator http://tools.acc.org/JVGCS-Bpas-Zkvifblhz/ Statin should be discussed if risk greater [...] [facility] [place] [address] * Tacrolimus level (08/12/2016 9:31 AM EST) Tacrolimus 4.9 ng/mL [facility] Comment: Trough therapeutic: ??5-15 ng/mL Performed by ultra-performance liquid chromatography tandem mass spectrometry (UPLCMS/MS). Blood specimen (specimen) 08/12/2016 9:31 AM EST 08/12/2016 10:15 AM EST Narrative Resulting Agency Comment Spec In Lab Tal Eagle MD CHEMISTRY ORDERAB LES Performing Organization Address [facility] Co de Phone Number [facility] [address] * Phosphorus (08/12/2016 9:31 AM EST) Phosphorus 2.6 2.5 - 4.5 mg/dL [facility] Blood specimen (specimen) 08/12/2016 9:31 AM EST 08/12/2016 9:38 AM EST Narrative Resulting Agency Comment Spec In Lab Tal Eagle MD CHEMISTRY ORDERAB LES Performing Organization Address [facility] Co de Phone Number [facility] [address] * (ABNORMAL) Magnesium (08/12/2016 9:31 AM EST) Magnesium 0.68(L) 0.69 - 1.07 mmol/L [facility] Blood specimen (specimen) 08/12/2016 9:31 AM EST 08/12/2016 9:38 AM EST Narrative Resulting Agency Comment Spec In Lab Tal Eagle MD CHEMISTRY ORDERAB LES Performing Organization Address [facility] Co de Phone Number [facility] [place] [address] documented in this encounter Visit Diagnoses Diagnosis Kidney transplant recipient documented in this encounter Care Teams Tool Room Supervisor Relationship Specialty Start Date End Date Urbano Denis DO [address] [place] [address] PCP - General 09/03/12 03/17/22 Hai STANLEY,Ruchi Nurse Clinic Transplant Surgery 07/30/15 documented as of this encounter
--- OUTSIDE RECORDS SUMMARY | 2024-04-04 14:06 | XMS_ITS | Encounter Summary ---
Author Organization [facility] [place] [address] Care Team Providers Care Weight Calculator Name Role Phone Urbano Denis DO Primary Care Provider [phone] Encounter Details Date Type Department Care Team (Latest Contact Info) Description 06/18/2016 10:30 AM EST Laboratory Appointment Lab [address] [place] [address] Kidney replaced by transplant Social [...] PM EDT Office Visit Cardiology at [address] [phone] Jay Urban MD [facility] [place] [address] 04/15/2024 10:00 AM EDT Hospital Encounter Non-Invasive [place] [address] Arrived documented as of this [...] Culture No growth (Less than 1,000 cfu/ml). [facility] Urine specimen obtained by clean catch procedure (specimen) 06/18/2016 10:57 AM EST 06/18/2016 11:44 AM EST Narrative Resulting Agency Comment Spec In Lab Que Amaro MD MICROBIOLOGY - GENERAL ORDERABLES [facility] [place] [address] * (ABNORMAL) Urinalysis with reflex Culture (06/18/2016 [...] LABORATORY Blood, Urine Dipstick Small(A) Negative mg/dL [facility] Ketone, Urine Dipstick Negative Negative mg/dL [facility] Nitrite, Urine Dipstick Negative Negative [facility] Leukocytes, Urine Dipstick Trace(A) Negative [facility] Appearance, Urine Dipstick Clear Clear [facility] Specific [place] Urine Automated 1.025 1.002 - 1.030 [facility] Color, Urine Dipstick Yellow Yellow [facility] RBC, Urine 3 0 - 3 /HPF [facility] WBC, Urine 14(H) 0 - 3 /HPF [facility] Bacteria, Urine Rare(A) None /HPF [facility] Transitional Epithelial Cells, Urine 1 <=1 /HPF [facility] Renal Epithelial Cells, Urine <1(H) <=0 /HPF [facility] Amorphous Crystals, Urine Rare(A) None /HPF [facility] Reflex to Culture Yes [facility] Urine specimen obtained by clean catch procedure (specimen) 06/18/2016 10:57 AM EST 06/18/2016 10:58 AM EST Narrative Resulting Agency Comment Spec In Lab Que Amaro MD URINE ORDERABL ES Performing Organization Address City/[facility]/ZIP Co de Phone Number [facility] [place] [address] * (ABNORMAL) Protein/Creatinine Ratio, urine (06/18/2016 10:57 AM EST) Creatinine, Urine 158 mg/dL [facility] Protein, Urine 24(H) 0 - 12 mg/dL [facility] Protein / Creatinine Ratio, Urine 0.2 ratio [facility] Urine specimen (specimen) 06/18/2016 10:57 AM EST 06/18/2016 11:15 AM EST Narrative Resulting Agency Comment Spec In Lab Que Amaro MD URINE ORDERABL ES Performing Organization Address [facility]/ZIP Co de Phone Number [facility] [place] [address] * BK Quant Blood Result (06/18/2016 10:44 AM EST) BKV Blood Result Not Detected [facility] BKV Blood Interp BK Virus Plasma Result Interpretation Result: BK Virus not detected Specimen type: plasma Assay Range: 2.83-8.83 log copies/mL (6.8x10^2 - 6.8x10^8 copies/mL) Methods: Quantitative real-time polymerase chain reaction (PCR) of viral DNA isolated from plasma was performed using [employer] (formerly, [employer] BKV analyte-specific reagents and the [employer] PAYMILL 7500 FAST Real-Time PCR System. In addition, [...] Gen[employer] and [employer] Technology (CGAT) Laboratory at [facility]. It has not been cleared or approved by the FDA. The laboratory is regulated under CLIA as qualified to perform high-complexity testing. This test is used for clinical purposes. It should not be regarded as investigational or for research. [facility] Comment: [VERIFIED DATE]06.24.16 Verified By:Tal Cleaning (Electronic Signature) Blood specimen (specimen) 06/18/2016 10:44 AM EST 06/18/2016 2:24 PM EST Narrative Resulting Agency Comment Spec In Lab Que Amaro MD HEMATOLOGY ORD ERABLES [facility] [place] [id number] * Differential, Automated (06/18/2016 10:44 AM EST) Neutrophil % 62.1 % [facility] Neutrophil Absolute 4.03 1.70 - 6.10 x10(3)/[facility] Lymph % 22.7 % [facility] Lymphocytes Abs 1.5 0.9 - 3.2 x10(3)/[facility] Monocyte % 8.0 % [facility] Monocyte Abs 0.5 0.3 - 0.9 x10(3)/[facility] Eos % 5.5 % [facility] Eosinophils Abs 0.4 0.0 - 0.4 x10(3)/[facility] Basophil % 1.2 % [facility] Baso Absolute 0.1 0.0 - 0.1 x10(3)/[facility] Immature Gran % 0.50 % [facility] Comment: [...] [facility] Blood specimen (specimen) 06/18/2016 10:44 AM EST 06/18/2016 10:51 AM EST Narrative Resulting Agency Comment Spec In Lab Que Amaro MD HEMATOLOGY ORD ERABLES [facility] [place] [address] * (ABNORMAL) Hemogram (06/18/2016 10:44 AM EST) White Blood Cell 6.5 4.0 - 9.5 x10(3)/ L [facility] Red Blood Cell 4.37(L) 4.58 - 5.54 x10(6)/mc L [facility] Hemoglobin 14.2 13.7 - 16.5 gm/dL [facility] Hematocrit 41.1 40.5 - 48.5 % [facility] Mean Cell Volume 94.1(H) 82.9 - 93.1 fL [facility] Mean Cell Hemoglobin 32.5(H) 27.5 - 32.1 pg [facility] Mean Cell Hemoglobin Concentration 34.5 32.0 - 35.7 gm/dL [facility] Platelet 199 145 - 357 x10(3)/ L [facility] RDW Standard Deviation 44.3 36.0 - 45.0 fL [facility] RDW coefficient of variation 12.9 11.4 - 13.8 % [facility] Mean Platelet Volume 9.4 7.6 - 12.9 fL [facility] NRBC% auto 0.0 % [facility] NRBC Absolute 0.000 0.000 - 0.000 x10(3)/mc L [facility] Blood specimen (specimen) 06/18/2016 10:44 AM EST 06/18/2016 10:51 AM EST Narrative Resulting Agency Comment Spec In Lab Que Amaro MD HEMATOLOGY ORD ERABLES [facility] [place] [address] * Uric acid (06/18/2016 10:44 AM EST) Pathologist [facility] Uric Acid 7.9 3.5 - 8.5 mg/dL [facility] Blood specimen (specimen) 06/18/2016 10:44 AM EST 06/18/2016 10:51 AM EST Narrative Resulting Agency Comment Spec In Lab Que Amaro MD CHEMISTRY ROCHELLE JENNINGS Performing Organization Address [facility] Co de Phone Number [facility] [place] [address] * Tacrolimus level (06/18/2016 10:44 AM EST) Pathologist [facility] Tacrolimus 4.0 ng/mL [facility] Comment: Trough therapeutic: ??5-15 ng/mL Performed by ultra-performance liquid chromatography tandem mass spectrometry (UPLCMS/MS). Blood specimen (specimen) 06/18/2016 10:44 AM EST 06/18/2016 1:23 PM EST Narrative Resulting Agency Comment Spec In Lab Que Amaro MD CHEMISTRY ROCHELLE JENNINGS Performing Organization Address [facility]/ZIP Co de Phone Number [facility] [place] [address] * (ABNORMAL) Reticulocyte Count (06/18/2016 10:44 AM EST) Reticulocyte % 2.7(H) 0.7 - 2.6 % [facility] Retic Abs # 0.120 0.030 - 0.120 x10(6)/mcL [facility] Immature Retic% 9.5 0.0 - 15.6 % [facility] Reticulated Hgb 37.8 31.3 - 40.2 pg [facility] Blood specimen (specimen) 06/18/2016 10:44 AM EST 06/18/2016 10:51 AM EST Narrative Resulting Agency Comment Spec In Lab Que Amaro MD HEMATOLOGY ORD ERABLES Performing Organization Address [facility]/ZIP Co de Phone Number [facility] [place] [address] * Phosphorus (06/18/2016 10:44 AM EST) Phosphorus 2.7 2.5 - 4.5 mg/dL [facility] Blood specimen (specimen) 06/18/2016 10:44 AM EST 06/18/2016 10:51 AM EST Narrative Resulting Agency Comment Spec In Lab Que Amaro MD CHEMISTRY ORDBhargav JENNINGS Performing Organization Address [facility] Co de Phone Number [facility] [place] [address] * (ABNORMAL) Magnesium (06/18/2016 10:44 AM EST) Magnesium 0.66(L) 0.69 - 1.07 mmol/L [facility] Blood specimen (specimen) 06/18/2016 10:44 AM EST 06/18/2016 10:51 AM EST Narrative Resulting Agency Comment Spec In Lab Que Amaro MD CHEMISTRY ORDE DICK Performing Organization Address City/[facility]/ZIP Co de Phone Number [facility] [place] [address] * Cyclosporine level (06/18/2016 10:44 AM EST) Pathologist [facility] Cyclosporine A Level <30 ng/mL [facility] Comment: Trough therapeutic: ??100-300 [...] Amaro MD LAB SEND OUT O RDERABLES [facility] [place] [address] * (ABNORMAL) Comprehensive metabolic panel (non-fasting) (06/18/2016 10:44 AM EST) [facility] [address] Glucose 153 65 - 199 mg/dL [facility] Comment:Diabetes: >=200 mg/d L plus symptoms Blood Urea Nitrogen 16 10 - 20 mg/dL [facility] Creatinine 1.34 0.80 - 1.50 mg/dL [facility] Comment: Please note that the pediatric reference intervals supplied above were not validated at [facility]. Results from pediatric patients should be interpreted in conjunction to the patient's age, height and muscle mass. Sodium 142 135 - 145 mmol/L [facility] Potassium 4.2 3.5 - 5.0 mmol/L [facility] [...] Anion Gap 16(H) 5 - 15 mmol/L [facility] Calcium 9.7 8.5 - 10.5 mg/dL [facility] Protein, Total 7.5 6.1 - 8.0 gm/dL [facility] Albumin 4.1 3.2 - 5.2 gm/dL [facility] Aspartate Aminotransferase 32 0 - 39 unit/L [facility] Alanine Aminotransferase 26 0 - 55 unit/L [facility] Alkaline Phosphatase 80 40 - 120 unit/L [facility] Bilirubin, Total 1.1 0.2 - 1.3 mg/dL [facility] Bilirubin, Direct 0.3 0.0 - 0.3 mg/dL [facility] Est Glomerular Filtration Rate 53(L) >=60 [facility] Comment: This [...] the following links into your internet browser. [email or web address] Blood specimen (specimen) 06/18/2016 10:44 AM EST 06/18/2016 10:51 AM EST Narrative Resulting Agency Comment Spec In Lab Que Amaro MD CHEMISTRY ROCHELLE JENNINGS [facility] [place] [address] * Cholesterol, total (06/18/2016 10:44 AM EST) Cholesterol, Total 160 <=239 mg/dL [facility] Lipid Interpretation See Note [facility] Comment: Lipid management should be guided by a patient? s ASCVD risk, goals and preferences. ACC/AHA Guidelines recommend high intensity statin if clinical ASCVD or LDL greater than or equal to 190 mg/dL. http://circ.ahajournals.org/content/early/.cir.7368852730.41671.7a Adults aged 40-75 with LDL 70-189 mg/dL should have their 10 year ASCVD risk estimated with the ACC/AHA ASCVD risk job cost estimator http://tools.acc.org/QAYDS-Lomg-Omwzqjuma/ Statin should be discussed if risk greater [...] ROCHELLE JENNINGS [facility] [place] [address] documented in this encounter Visit Diagnoses Diagnosis Kidney replaced by transplant documented in this encounter Care Teams Weight Calculator Relationship Specialty Start Date End Date Urbano Denis DO [address] [place] [address] PCP - General 09/03/12 03/17/22 Ruchi Valles RN Nurse Clinic Transplant Surgery 07/30/15 documented as of this encounter
--- OUTSIDE RECORDS SUMMARY | 2024-04-04 14:06 | XMS_ITS | Encounter Summary ---
Author Organization [facility] [place] [address] Care Team Providers Care Manufacturing Engineering Director Name Role Phone AdeelUrbano toscano Primary Care Provider Encounter Details Date Type Department Care Team (Late st Contact Info) Description 07/25/2016 Telephone Solid [place] [address] Samia Escalante, RN Social History Tobacco Use [...] bodies of water. Samia Escalante, JADEN Post Cutter [employer] [facility] Solid Organ Transplant documented in this encounter Plan of Treatment Upcoming Encounters Date Type Department Care Team (Late st Contact Info) Description 04/08/2024 1:40 PM EDT Office Visit Cardiology at [address] [phone] Jay Urban MD [facility] [place] [address] 04/15/2024 10:00 AM EDT Hospital Encounter Non[place] [address] Arrived documented as of this encounter Visit Diagnoses Not on filedocumented in this encounter Care Teams Manufacturing Engineering Director Relationship Specialty Start Date End Date Urbano Denis DO [address] [place] [address] [facility] [address] [place] [address] PCP - General 09/03/12 03/17/22 Ruchi Valles RN Nurse Clinic Transplant Surgery 07/30/15 documented as of this encounter
--- OUTSIDE RECORDS SUMMARY | 2024-04-04 14:06 | XMS_ITS | Encounter Summary ---
Author Organization [facility] Address [facility] [place] [address] Care Team Providers Care General Operations Manager Name Role Phone Urbano Denis DO Primary Care Provider [phone] Encounter Details Date Type Department Care Team (Late st Contact Info) Description 08/12/2016 Telephone [place] [address] Joanne Fernandes, RN [facility] [place] [address] Social History Tobacco Use Types Packs/Day Years [...] her about details HE was approved for [facility] and picked up med today. Copay by the [facility] Mrs Bolden had read package insert in [...] PM EDT Office Visit Cardiology at [address] [phone] Jay Urban MD [facility] [place] [address] 04/15/2024 10:00 AM EDT Hospital Encounter [place] [address] Arrived documented as of this encounter Visit Diagnoses Not on filedocumented in this encounter Care Teams General Operations Manager Relationship Specialty Start Date End Date Urbano Denis DO [address] [place] [address] PCP - General 09/03/12 03/17/22 Hai STANLEY,Ruchi Nurse Clinic Transplant Surgery 07/30/15 documented as of this encounter
--- OUTSIDE RECORDS SUMMARY | 2024-04-04 14:06 | XMS_ITS | Encounter Summary ---
[place] [address] Care Team Providers Care Nursing Informatics Clinical Analyst Name Role Phone AdeelUrbano toscano Primary Care Provider Reason for Visit * Reason Onset Date Comments Patient Education 09/23/2016 Encounter Details Date Type Department Care Team (Late st Contact Info) Description 08/13/2016 [place] [address] Selena Cisneros, [facility] Patient Education Social History Tobacco Use Types [...] Notes * Telephone Encounter - Selena Carias, [facility] - 10/23/2016 9:42 AM EDT [facility] [place] Specialty Pharmacy: Clinical Management Plan Start Date: [...] Informed patient of specialty pharmacy services: yes Electronically signed by Selena Carias [facility] at 10/23/2016 10:15 AM EDT * Telephone Encounter - Selena Carias [facility] - 10/22/2016 3:37 PM EDT [facility] [place] Specialty Pharmacy: Clinical Management Plan Left message to follow up on Uriel. I also wanted to see how Yash was tolerating the glipizide. Electronically signed by Selena Carias [facility] at 10/22/2016 3:38 PM EDT * Telephone Encounter - Selena Carias [facility] - 09/23/2016 10:30 AM EDT [facility] [place] Specialty Pharmacy: Clinical Management Plan Start Date: [...] Carias RPH - 08/13/2016 11:05 AM EST [facility] [place] Specialty Pharmacy: Clinical Management Plan Start Date: [...] 1:40 PM EDT Office Visit Cardiology at [address] [address] Jay Urban MD [facility] [place] [address] 04/15/2024 10:00 AM EDT Hospital Encounter Non[place] [address] Arrived documented as of this [...] on filedocumented in this encounter Care Teams Nursing Informatics Clinical Analyst Relationship Specialty Start Date End Date Urbano Denis DO [address] [place] [address] PCP - General 09/03/12 03/17/22 Ruchi Valles RN Nurse Clinic Transplant Surgery 07/30/15 documented as of this encounter
--- OUTSIDE RECORDS SUMMARY | 2024-04-04 14:06 | XMS_ITS | Encounter Summary ---
Author Organization [facility] [place] [address] Care Team Providers Care Cupola Tender Helper Name Role Phone Adeel, Urbano KIRBY Primary Care Provider Encounter Details Date Type Department Care Team (Late st Contact Info) Description 06/10/2016 Abstract [place] [address] Chapin Lehman, HOSPICE CARE CONSULTANT Social History Tobacco Use Types Packs/Day Years [...] PM EDT Office Visit Cardiology at [address] [phone] Jay Urban MD [facility] [place] [address] 04/15/2024 10:00 AM EDT Hospital Encounter Non[place] [address] Arrived documented as of this encounter Visit Diagnoses Not on filedocumented in this encounter Care Teams Cupola Tender Helper Relationship Specialty Start Date End Date Urbano Denis DO [address] [place], [place] [address]Y [facility] [address] [place] [address] PCP - General 09/03/12 03/17/22 Ruchi Valles RN Nurse Clinic Transplant Surgery 07/30/15 documented as of this encounter
--- OUTSIDE RECORDS SUMMARY | 2024-04-04 14:06 | XMS_ITS | Encounter Summary ---
Author Organization [facility] Address [facility] [place] [address] Care Team Providers Care Pre Algebra Teacher Name Role Phone Urbano Denis DO Primary Care Provider [phone] Reason for Visit * Reason Comments Follow-up Encounter Details Date Type Department Care Team (Late st Contact Info) Description 09/10/2016 9:30 AM EST Office [place] [address] Franko Kim MD [facility] DR INFECTIOUS DISEASE [place] [id number] Chronic hepatitis C without hepatic coma; Encounter for medication monitoring; [facility]ent[facility] current use of antibiotics Social History Tobacco [...] 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 On 01/04/16, hisviral load was [id number], on 07/30/16 [id number]. I will order a viral load today, [...] Yuliet Kim MD Infectious Disease Fellow Pager [phone] * Aubrey Horvath MD - 09/10/2016 9:30 AM EST Attending Addendum: I have seen and examined the patient, reviewed the data and agree with the note by Dr. Tipton. documented in this encounter Plan of Treatment Upcoming Encounters Date Type Department Care Team (Late st Contact Info) Description 04/08/2024 1:40 PM EDT Office Visit Cardiology at [address] [phone] Jay Urban MD [facility] [place] [address] 04/15/2024 10:00 AM EDT Hospital Encounter Non-Invasive Cardiology Lab [facility] [place] [address] Arrived documented as of this encounter Goals [...] 10:44 AM EST) Neutrophil % 57.7 % [facility] Neutrophil Absolute 3.80 1.70 - 6.10 x10(3)/[facility] LAB[facility] Lymph % 29.5 % [facility] Lymphocytes Abs 1.9 0.9 - 3.2 x10(3)/[facility] LAB[facility] Monocyte % 8.1 % [facility] Monocyte Abs 0.5 0.3 - 0.9 x10(3)/[facility] LAB[facility] Eos % 3.3 % [facility] Eosinophils Abs 0.2 0.0 - 0.4 x10(3)/[facility] LAB[facility] Basophil % 1.1 % [facility] Baso Absolute 0.1 0.0 - 0.1 x10(3)/[facility] LAB[facility] Immature Gran % 0.30 % [...] x10(3)/[facility] LAB[facility] Blood specimen (specimen) 09/10/2016 10:44 AM EST 09/10/2016 10:49 AM EST Narrative Resulting Agency Comment Spec In Lab Aubrey Horvath MD HEMATOLOGY ORDERA BLES [facility] [place] [id number] * (ABNORMAL) Hemogram (09/10/2016 10:44 AM EST) White Blood Cell 6.6 4.0 - 9.5 x10(3)/ L [facility] Red Blood Cell 4.95 4.58 - 5.54 x10(6)/[facility] LAB[facility]ORY Hemoglobin 15.7 13.7 - 16.5 gm/dL [facility] Hematocrit 43.7 40.5 - 48.5 % [facility] Mean Cell Volume 88.3 82.9 - 93.1 fL [facility] Mean Cell Hemoglobin 31.7 27.5 - 32.1 pg [facility] Mean Cell Hemoglobin Concentration 35.9(H) 32.0 - 35.7 gm/dL [facility] Platelet 251 145 - 357 x10(3)/ L [facility] RDW Standard Deviation 40.6 36.0 - 45.0 [facility] RDW coefficient of variation 12.5 11.4 - 13.8 % [facility] Mean Platelet Volume 9.3 7.6 - 12.9 [facility] NRBC% auto 0.0 % [facility] NRBC Absolute 0.000 0.000 - 0.000 x10(3)/mc L [facility] Blood specimen (specimen) 09/10/2016 10:44 AM EST 09/10/2016 10:49 AM EST Narrative Resulting Agency Comment Spec In Lab Aubrey Horvath MD HEMATOLOGY ORDERA BLES Performing Organization Address [facility]/ZIP Co de Phone Number [facility] [place] [address] * Hepatitis C RNA, quantitative, PCR (09/10/2016 10:44 AM EST) HCV Viral Load <15 IU/mL [facility] HCV Viral Load Result: <15 [...] This assay is being performed in the [facility] Molecular Pathology Laboratory. Gibson Good, Ph.D. Director, Molecular Pathology [facility] Comment: [VERIFIED DATE]09.12.16 Verified By:Tal Cleaning (Electronic Signature) Blood specimen (specimen) 09/10/2016 10:44 AM EST 09/12/2016 10:39 AM EST Narrative Resulting Agency Comment Spec In Lab Aubrey Horvath MD MOLECULAR ORDERAB LES Performing Organization Address City/[facility]/ZIP Co de Phone Number [facility] [place] [address] * (ABNORMAL) Comprehensive metabolic panel (non-fasting) (09/10/2016 10:44 AM EST) Glucose 106 65 - 199 mg/dL [facility] Comment:Diabetes: >=200 mg/d L plus symptoms Blood Urea Nitrogen 19 10 - 20 mg/dL [facility] Creatinine 1.44 0.80 - 1.50 mg/dL [facility] Comment: Please note that the pediatric reference intervals supplied above were not validated at [facility]. Results from pediatric patients should be interpreted in conjunction to the patient's age, height and muscle mass. Sodium 141 135 - 145 mmol/L [facility] Potassium 4.0 3.5 - 5.0 mmol/L [facility] Comment: Please note: ??Patients with WBC >100,000 may have falsely elevated Potassium levels. ??For accurate Potassium quantification in these patients send serum separator tube (gold top) for subsequent determinations. ??Contact the Clinical Chemistry Laboratory if there are any questions. Chloride 103 98 - 107 mmol/L [facility] Carbon Dioxide 24 22 - 31 mmol/L [facility] Anion Gap 14 5 - 15 mmol/L [facility] Calcium 9.7 8.5 - 10.5 mg/dL [facility] Protein, Total 7.4 6.1 - 8.0 gm/dL [facility] Albumin 4.1 3.2 - 5.2 gm/dL [facility] Aspartate Aminotransferase 16 0 - 39 unit/L [facility] Alanine Aminotransferase 16 0 - 55 unit/L [facility] Alkaline Phosphatase 60 40 - 120 unit/L [facility] Bilirubin, Total 1.8(H) 0.2 - 1.3 mg/dL [facility] Bilirubin, Direct 0.4(H) 0.0 - 0.3 mg/dL [facility] Est Glomerular Filtration Rate 49(L) >=60 [facility] Comment: This estimated [...] the following links into your internet browser. [email or web address] Blood specimen (specimen) 09/10/2016 10:44 AM EST 09/10/2016 10:49 AM EST Narrative Resulting Agency Comment Spec In Lab Aubrey Horvath MD CHEMISTRY ORDERAB LES [facility] [place] [address] documented in this encounter Visit Diagnoses Diagnosis Chronic hepatitis C without hepatic coma Encounter for medication monitoring Encounter for therapeutic drug monitoring penitentiary current use of antibiotics Encounter for long-term (current) use of antibiotics documented in this encounter Care Teams Pre Algebra Teacher Relationship Specialty Start Date End Date Urbano Denis DO [address] [place] [address] PCP - General 09/03/12 03/17/22 Ruchi Valles RN Nurse Clinic Transplant Surgery 07/30/15 documented as of this encounter
--- OUTSIDE RECORDS SUMMARY | 2024-04-04 14:06 | XMS_ITS | Encounter Summary ---
Author Organization [facility] Address [facility] [place] [address] Care Team Providers Care Sonography Technician Name Role Phone Urbano Denis DO Primary Care Provider Encounter Details Date Type Department Care Team (Late st Contact Info) Description 06/18/2016 11:30 AM EST Office Visit [place] [address] Que Amaro MD [facility] [place] [address] Kidney replaced by transplant Social History Tobacco [...] transplant procedure. Patient was recently discharged from [facility] s/p UTI, ureteral reimplant for recurring ureteral [...] performed by Que Amaro MD at [facility] OR ??? Pro transplantation of kidney N/A 09/16/2015 @KIDNEY TRANSPLANT, WITHOUT RECIPIENT NEPHRECTOMY performed by Franko Larkin MD at [facility] OR ??? Pro transplant, prep cadaver renal graft N/A 09/16/2015 @PREPARATION CADAVERIC RENAL ALLOGRAFT performed by Franko Larkin MD at [facility] OR ??? N/A 09/16/2015 ORGAN ACQUISITION RENAL, CADAVERIC performed by Franko Larkin MD at [facility] OR ??? Pro reimplant ureter, single ureter Left 05/20/2016 @URETERONEOCYSTOSTOMY ANASTOMOSIS OF SINGLE URETER TO BLADDER performed by Santosh Arredondo MD at [facility] OR ??? Pro reimplant ureter, single ureter N/A 05/20/2016 @URETERONEOCYSTOSTOMY ANASTOMOSIS OF SINGLE URETER TO BLADDER performed by Que Amaro MD at [facility] OR Family History: No family history [...] PM EDT Office Visit Cardiology at [address] [phone] Jay Urban MD [facility] [place] [address] 04/15/2024 10:00 AM EDT Hospital Encounter Non[place] [phone] Arrived documented as of this encounter Results [...] HOSPITAL LABORATORY Leukocytes, Urine Dipstick Trace(A) Negative [facility] Appearance, Urine Dipstick Clear Clear [facility] Specific [place] Urine Automated 1.025 1.002 - 1.030 [facility] Color, Urine Dipstick Yellow Yellow [facility] RBC, Urine 3 0 - 3 /HPF [facility] WBC, Urine 14(H) 0 - 3 /HPF [facility] Bacteria, Urine Rare(A) None /HPF [facility] Transitional Epithelial Cells, Urine 1 <=1 /HPF [facility] Renal Epithelial Cells, Urine <1(H) <=0 /HPF [facility] Amorphous Crystals, Urine Rare(A) None /HPF [facility] Reflex to Culture Yes [facility] Urine specimen obtained by clean catch procedure (specimen) 06/18/2016 10:57 AM EST 06/18/2016 10:58 AM EST Narrative Resulting Agency Comment Spec In Lab Que Amaro MD URINE ORDERABL ES [facility] [place] [address] * (ABNORMAL) Protein/Creatinine Ratio, urine (06/18/2016 10:57 AM EST) Creatinine, Urine 158 mg/dL [facility] Protein, Urine 24(H) 0 - 12 mg/dL [facility] Protein / Creatinine Ratio, Urine 0.2 ratio [facility] Urine specimen (specimen) 06/18/2016 10:57 AM EST 06/18/2016 11:15 AM EST Narrative Resulting Agency Comment Spec In Lab Que Amaro MD URINE ORDERABL ES Performing Organization Address City/[facility] Co de Phone Number [facility] [place] [address] * Uric acid (06/18/2016 10:44 AM EST) [facility] Uric Acid 7.9 3.5 - 8.5 mg/dL [facility] Blood specimen (specimen) 06/18/2016 10:44 AM EST 06/18/2016 10:51 AM EST Narrative Resulting Agency Comment Spec In Lab Que Amaro MD CHEMISTRY ROCHELLE JENNINGS Performing Organization Address [facility] Co de Phone Number [facility] [place] [address] * Tacrolimus level (06/18/2016 10:44 AM EST) Pathologist [facility] Tacrolimus 4.0 ng/mL [facility] Comment: Trough therapeutic: ??5-15 ng/mL Performed by ultra-performance liquid chromatography tandem mass spectrometry (UPLCMS/MS). Blood specimen (specimen) 06/18/2016 10:44 AM EST 06/18/2016 1:23 PM EST Narrative Resulting Agency Comment Spec In Lab Que Amaro MD CHEMISTRY ROCHELLE JENNINGS Performing Organization Address [facility] Co de Phone Number [facility] [place] [address] * (ABNORMAL) Reticulocyte Count (06/18/2016 10:44 AM EST) Pathologist [facility] Reticulocyte % 2.7(H) 0.7 - 2.6 % [facility] Retic Abs # 0.120 0.030 - 0.120 x10(6)/mcL [facility] Immature Retic% 9.5 0.0 - 15.6 % [facility] Reticulated Hgb 37.8 31.3 - 40.2 pg [facility] Blood specimen (specimen) 06/18/2016 10:44 AM EST 06/18/2016 10:51 AM EST Narrative Resulting Agency Comment Spec In Lab Que Amaro MD HEMATOLOGY ORD ERABLES Performing Organization Address [facility]/ZIP Co de Phone Number [facility] [place] [address] * Phosphorus (06/18/2016 10:44 AM EST) Phosphorus 2.7 2.5 - 4.5 mg/dL [facility] Blood specimen (specimen) 06/18/2016 10:44 AM EST 06/18/2016 10:51 AM EST Narrative Resulting Agency Comment Spec In Lab Que Amaro MD CHEMISTRY ORDTiny JENNINGS Performing Organization Address [facility] Co de Phone Number [facility] [place] [address] * (ABNORMAL) Magnesium (06/18/2016 10:44 AM EST) Magnesium 0.66(L) 0.69 - 1.07 mmol/L [facility] Blood specimen (specimen) 06/18/2016 10:44 AM EST 06/18/2016 10:51 AM EST Narrative Resulting Agency Comment Spec In Lab Que Amaro MD CHEMISTRY ORDE DICK Performing Organization Address City/[facility]/ZIP Co de Phone Number [facility] [place] [address] * Cyclosporine level (06/18/2016 10:44 AM EST) Pathologist [facility] Cyclosporine A Level <30 ng/mL [facility] Comment: Trough therapeutic: ??100-300 ng/mL [...] Amaro MD LAB SEND OUT O RDERABLES [facility] [place] [address] * (ABNORMAL) Comprehensive metabolic panel (non-fasting) (06/18/2016 10:44 AM EST) [facility] Glucose 153 65 - 199 mg/dL [facility] Comment:Diabetes: >=200 mg/d L plus symptoms Blood Urea Nitrogen 16 10 - 20 mg/dL [facility] Creatinine 1.34 0.80 - 1.50 mg/dL [facility] Comment: Please note that the pediatric reference intervals supplied above were not validated at [facility]. Results from pediatric patients should [...] 8.0 gm/dL [facility] Albumin 4.1 3.2 - 5.2 gm/dL [facility] Aspartate Aminotransferase 32 0 - 39 unit/L [facility] Alanine Aminotransferase 26 0 - 55 unit/L [facility] Alkaline Phosphatase 80 40 - 120 unit/L [facility] Bilirubin, Total 1.1 0.2 - 1.3 mg/dL [facility] Bilirubin, Direct 0.3 0.0 - 0.3 mg/dL [facility] Est Glomerular Filtration Rate 53(L) >=60 [facility] Comment: [...] the following links into your internet browser. [email or web address] Blood specimen (specimen) 06/18/2016 10:44 AM EST 06/18/2016 10:51 AM EST Narrative Resulting Agency Comment Spec In Lab Que Amaro MD CHEMISTRY ROCHELLE JENNINGS [facility] [place] [address] * Cholesterol, total (06/18/2016 10:44 AM EST) Cholesterol, Total 160 <=239 mg/dL [facility] Lipid Interpretation See Note [facility] Comment: Lipid management should be guided by a patient? s ASCVD risk, goals and preferences. ACC/AHA Guidelines recommend high intensity statin if clinical ASCVD or LDL greater than or equal to 190 mg/dL. http://circ.ahajournals.org/content/early/.cir.1348541514.55819.7a Adults aged 40-75 with LDL 70-189 mg/dL should have their 10 year ASCVD risk estimated with the ACC/AHA ASCVD risk commercial estimator http://tools.acc.org/SXBUI-Cydq-Viorbclkq/ Statin should be discussed if risk greater [...] CHEMISTRY ROCHELLE JENNINGS [facility] [place] [address] documented in this encounter Visit Diagnoses Diagnosis Kidney replaced by transplant documented in this encounter Care Teams Sonography Technician Relationship Specialty Start Date End Date Urbano Denis DO [address] [place] [address] PCP - General 09/03/12 03/17/22 Ruchi Valles RN Nurse Clinic Transplant Surgery 07/30/15 documented as of this encounter
--- OUTSIDE RECORDS SUMMARY | 2024-04-04 14:07 | XMS_ITS | Encounter Summary ---
Author Organization [facility] [place] [address] Care Team Providers Care Cinder Crane Operator Name Role Phone Urbano Denis DO Primary Care Provider [phone] Reason for Visit * Reason Comments Follow-up Encounter Details Date Type Department Care Team (Late st Contact Info) Description 06/03/2016 10:40 AM EST [place] [address] Santosh Arredondo MD [facility] [place] [address] Ureteral stricture of left kidney transplant Social [...] flap. He also underwent ligatio of the [place] LEFT ureter 09/17/2015 Donor renal transplant for [...] the renal pelvis with ligation of the [place] ureter. 05/28/2016 Discharged after post op course [...] ??? Hematuria PSHx Bilateral inguinal hernias with [id number] Shoulder surgery Knee arthroscopy Vasectomy Medications: Reviewed [...] sp donor transplantation.sp Boari flap. Ligation of [place] left ureter #2: Hx of staph and [...] PM EDT Office Visit Cardiology at [address] [phone] Jay Urban MD [facility] [place] [address] 04/15/2024 10:00 AM EDT Hospital Encounter Non-[place] [phone] Arrived documented as of this encounter Visit Diagnoses Diagnosis Ureteral stricture of left kidney transplant Complications of transplanted kidney documented in this encounter Care Teams Cinder Crane Operator Relationship Specialty Start Date End Date Adeel DO Urbano [address] [place] [address] PCP - General 09/03/12 03/17/22 Ruchi Valles RN Nurse Clinic Transplant Surgery 07/30/15 documented as of this encounter
--- OUTSIDE RECORDS SUMMARY | 2024-04-04 14:07 | XMS_ITS | Encounter Summary ---
[place] [address] Care Team Providers Care Ui Software Developer Name Role Phone Urbano Denis DO Primary Care Provider + [phone] Reason for Referral * Diagnostic Test (Routine) - Closed Specialty Diagnoses / Procedures Referred By Humberto flor Referred To Contact Radiology Diagnoses Ureteral stricture Procedures IR all procedures Santosh Arredondo MD [facility] [place] [address] [place] [address] Referral ID Status Reason Start Date Expiration Date V isits Requested Visits Authorized [id number] Closed Specialty Service Requested 06/03/2016 06/03/2017 1 1 Encounter Details Date Type Department Care Team (Latest Contact Info) Description 06/03/2016 10:00 AM EST Clinical [place] [address] Ureteral stricture Social History Tobacco [...] PM EDT Office Visit Cardiology at [address] [phone] Jay Urban MD [facility] [place] [place] [address] 04/15/2024 10:00 AM EDT Hospital Encounter Non[place] [phone] Arrived documented as of this encounter Results * IR all procedures (06/09/2016 8:23 AM EST) Anatomical Region Laterality Modality Abdomen X-Ray Angiograph y Narrative 06/09/2016 8:34 AM EST IR PROCEDURE NOTE ?? Procedure: Nephrostomy tube check and removal. ?? Indication for Procedure: Per Dr. Osullivan, Cody Bolden is a 65 y.o. male [...] the renal pelvis with ligation of the [place] ureter on 05/20/2016. Nephrostomy tube was capped [...] Lange performed this procedure. Santosh Arredondo MD [facility] IR ORDERABLES documented in this encounter Visit Diagnoses Diagnosis Ureteral stricture Stricture or kinking of ureter Ureteral stricture Stricture or kinking of ureter documented in this encounter Care Teams Ui Software Developer Relationship Specialty Start Date End Date Urbano Denis DO [address] [place] [address] PCP - General 09/03/12 03/17/22 Ruchi Valles RN Nurse Clinic Transplant Surgery 07/30/15 documented as of this encounter
--- OUTSIDE RECORDS SUMMARY | 2024-04-04 14:07 | XMS_ITS | Encounter Summary ---
Author Organization [facility] [place] [address] Care Team Providers Care Banking Paralegal Name Role Phone Urbano Denis DO Primary Care Provider Encounter Details Date Type Department Care Team (Latest Contact Info) Description 06/03/2016 8:00 AM EST Laboratory Appointment Lab [address] [place] [address] H/O kidney transplant; H/O chronic hepatitis Social [...] PM EDT Office Visit Cardiology at [address] [phone] Jay Urban MD [facility] [place] [address] 04/15/2024 10:00 AM EDT Hospital Encounter Non-[place] [address] Arrived Pending Results Name Type [...] EST) Glucose, Urine Dipstick Negative Negative mg/dL [facility] Protein, Urine Dipstick 30(A) Negative mg/dL [facility] Bilirubin, [...] [facility] pH, Urn (dipstick) 7.0 5.0 - 8.0 [facility] Blood, Urine Dipstick Large(A) Negative mg/dL [facility] Ketone, Urine Dipstick Negative Negative mg/dL [facility] Nitrite, Urine Dipstick Negative Negative [facility] Leukocytes, Urine Dipstick Small(A) Negative [facility] Appearance, Urine Dipstick Hazy(A) Clear [facility] Specific Hester Urine Automated 1.023 1.002 - 1.030 [facility] Color, Urine Dipstick Yellow Yellow [facility] RBC, Urine >182(H) 0 - 3 /HPF [facility] WBC, Urine 20(H) 0 - 3 /HPF [facility] Bacteria, Urine Rare(A) None /HPF [facility] Squamous Epithelial Cells, Urine <1 <=4 /HPF [facility] Calcium Oxalate Crystal, Urine Few(A) None /HPF [facility] Reflex to Culture Dup Culture [facility] Urine specimen obtained by clean catch procedure (specimen) 06/03/2016 2:05 PM EST 06/03/2016 2:05 PM EST Narrative Resulting Agency Comment Spec In Lab Que Amaro MD URINE ORDERABL ES [facility] [place] [address] * (ABNORMAL) Differential, Automated (06/03/2016 9:52 AM EST) Pathologist [facility] Neutrophil % 85.3 % [facility] Neutrophil Absolute 11.89(H) 1.70 - 6.10 x10(3)/ L [facility] Lymph % 6.8 % [facility] Lymphocytes Abs 1.0 0.9 - 3.2 x10(3)/ L [facility] Monocyte % 5.8 % [facility] Monocyte Abs 0.8 0.3 - 0.9 x10(3)/ L [facility] Eos % 1.1 % [facility] Eosinophils Abs 0.2 0.0 - 0.4 x10(3)/[facility] Basophil % 0.6 % [facility] Baso Absolute 0.1 0.0 - 0.1 x10(3)/[facility] Immature Gran % 0.40 % [facility] Comment: Immature granulocytes(IG's)percentage and absolute count will include metamyelocytes, myelocytes, and promyelocytes. Blood smears from CBCs yielding IG's will be scanned manually for concordance. If this scan disagrees with the automated IG or if promyelocytes are noted, a manual differential will be performed. Immature Gran Absolute 0.06(H) 0.00 - 0.04 x10(3)/ L [facility] Blood specimen (specimen) 06/03/2016 9:52 AM EST 06/03/2016 9:55 AM EST Narrative Resulting Agency Comment Spec In Lab Que Amaro MD HEMATOLOGY ORD ERABLES [facility] [place] [address] * (ABNORMAL) Hemogram (06/03/2016 9:52 AM EST) Pathologist [facility] White Blood Cell 14.0(H) 4.0 - 9.5 x10(3)/ L [facility] Red Blood Cell 4.34(L) 4.58 - 5.54 x10(6)/mc L [facility] Hemoglobin 13.9 13.7 - 16.5 gm/dL [facility] Hematocrit 40.7 40.5 - 48.5 % [facility] Mean Cell Volume 93.8(H) 82.9 - 93.1 fL [facility] Mean Cell Hemoglobin 32.0 27.5 - 32.1 pg [facility] Mean Cell Hemoglobin Concentration 34.2 32.0 - 35.7 gm/dL [facility] Platelet 287 145 - 357 x10(3)/mc L [facility] RDW Standard Deviation 44.4 36.0 - 45.0 [facility] RDW coefficient of variation 13.0 11.4 - 13.8 % [facility] Mean Platelet Volume 8.6 7.6 - 12.9 [facility] NRBC% auto 0.0 % [facility] NRBC Absolute 0.000 0.000 - 0.000 x10(3)/mc L [facility] Blood specimen (specimen) 06/03/2016 9:52 AM EST 06/03/2016 9:55 AM EST Narrative Resulting Agency Comment Spec In Lab Que Amaro MD HEMATOLOGY ORD ERABLES Performing Organization Address City/[facility]/ZIP Co de Phone Number [facility] [place] [address] * Albumin Level (06/03/2016 9:52 AM EST) Albumin 4.0 3.2 - 5.2 gm/dL [facility] Blood specimen (specimen) 06/03/2016 9:52 AM EST 06/03/2016 9:55 AM EST Narrative Resulting Agency Comment Spec In Lab Que Amaro MD CHEMISTRY ORDE DICK Performing Organization Address City/[facility]/ZIP Co de Phone Number [facility] [place] [address] * (ABNORMAL) Liver Fibrosis Panel (06/03/2016 9:52 AM EST) Liver Fibrosis Panel FLEXITEST 3(A) [facility] Comment: FLEXITEST 3 TESTS [...] 0.61-0.62 ?A2-A3 0.63-1.00 ?A3 ? severe activity Vnjgy-8-Nnfvycdellfak ? 267 ?mg/dL ??106-279 Haptoglobin ? 235 H ?mg/dL ??43-212 Apolipoprotein A1 ? 128 ?mg/dL ??94-176 Total Bilirubin ? 0.9 ?mg/dL ??0.2-1.2 GGT ?55 ?U/L ??3- 70 ALT ?28 ?U/L ??9- 46 Reference ID ?[id number] Footnote ?SEE NOTE The reliability of results [...] The performance characteristics have been determined by [facility], [place]. It has not been cleared or approved by the U.S. Food and Drug Administration. Performance characteristics refer to the analytical performance of the test. [employer], the associated logo, [employer] and all associated [employer] jacobsen are the registered trademarks of [employer]. All third democrat jacobsen - (R) and (TM) - are the property of their respective owners. (C) [id number] [employer]. All rights reserved. Test performed by: ? [facility] ? [address] [facility] ? [place] [address] ? Phone: ??[phone] Director: ??Tanmay Huggins M.D. Test Reported by [employer] [facility], [address] [place] [address] Fer Stoll M.D., Ph.D., Director of Laboratories , [facility] [id number] Blood specimen (specimen) 06/03/2016 9:52 AM EST 06/03/2016 10:00 AM EST Narrative Resulting Agency Comment Spec In Lab Que Amaro MD LAB SEND OUT O RDERABLES [facility] [place] [address] * Tacrolimus level (06/03/2016 9:52 AM EST) Tacrolimus 4.1 ng/mL [facility] Comment: Trough therapeutic: ??5-15 ng/mL Performed by ultra-performance liquid chromatography tandem mass spectrometry (UPLCMS/MS). Blood specimen (specimen) 06/03/2016 9:52 AM EST 06/03/2016 10:55 AM EST Narrative Resulting Agency Comment Spec In Lab Que Amaro MD CHEMISTRY ORDE DICK Performing Organization Address [facility] Co de Phone Number [facility] [place] [address] * Reticulocyte Count (06/03/2016 9:52 AM EST) Reticulocyte % 1.6 0.7 - 2.6 % [facility] Retic Abs # 0.070 0.030 - 0.120 x10(6)/mcL [facility] Immature Retic% 7.4 0.0 - 15.6 % [facility] Reticulated Hgb 36.7 31.3 - 40.2 pg [facility] Blood specimen (specimen) 06/03/2016 9:52 AM EST 06/03/2016 9:55 AM EST Narrative Resulting Agency Comment Spec In Lab Que Amaro MD HEMATOLOGY ORD ERABLES [facility] [place] [address] * Uric acid (06/03/2016 9:52 AM EST) Uric Acid 6.0 3.5 - 8.5 mg/dL [facility] Blood specimen (specimen) 06/03/2016 9:52 AM EST 06/03/2016 9:55 AM EST Narrative Resulting Agency Comment Spec In Lab Que Amaro MD CHEMISTRY ROCHELLE JENNINGS Performing Organization Address [facility]/ZIP Co de Phone Number [facility] [place] [address] * (ABNORMAL) Phosphorus (06/03/2016 9:52 AM EST) Phosphorus 2.4(L) 2.5 - 4.5 mg/dL [facility] Blood specimen (specimen) 06/03/2016 9:52 AM EST 06/03/2016 9:55 AM EST Narrative Resulting Agency Comment Spec In Lab Que Amaro MD CHEMISTRY ROCHELLE JENNINGS Performing Organization Address [facility] Co de Phone Number [facility] [place] [address] * (ABNORMAL) Magnesium (06/03/2016 9:52 AM EST) Magnesium 0.59(L) 0.69 - 1.07 mmol/L [facility] Blood specimen (specimen) 06/03/2016 9:52 AM EST 06/03/2016 9:55 AM EST Narrative Resulting Agency Comment Spec In Lab Que Amaro MD CHEMISTRY ROCHELLE JENNINGS Performing Organization Address [facility] Co de Phone Number [facility] [place] [address] * Cholesterol, total (06/03/2016 9:52 AM EST) Cholesterol, Total 131 <=199 mg/dL [facility] Comment: Recommendations of the NCEP Adult Treatment Panel for the following risk cutoff thresholds for the [place] population: Desirable: <200 mg/dL Borderline High: 200-239 mg/dL High: > or = 240 mg/dL Blood specimen (specimen) 06/03/2016 9:52 AM EST 06/03/2016 9:55 AM EST Narrative Resulting Agency Comment Spec In Lab Que Amaro MD CHEMISTRY ROCHELLE JENNINGS [facility] [place] [address] * (ABNORMAL) Basic Metabolic Panel (non-fasting) (06/03/2016 9:52 AM EST) Glucose 166 65 - 199 mg/dL [facility] Comment:Diabetes: >=200 mg/d L plus symptoms Blood Urea Nitrogen 16 10 - 20 mg/dL [facility] Creatinine 1.24 0.80 - 1.50 mg/dL [facility] [...] 15 mmol/L [facility] Calcium 9.7 8.5 - 10.5 mg/dL [facility] Est Glomerular Filtration Rate 58(L) >=60 [facility] Comment: This [...] the following links into your internet browser. [email or web address] [email or web address]/[email or web address] FAIRVIEWnkf Blood specimen (specimen) 06/03/2016 9:52 AM EST 06/03/2016 9:55 AM EST Narrative Resulting Agency Comment Spec In Lab Que Amaro MD [place] [address] documented in this encounter Visit Diagnoses Diagnosis H/O kidney transplant Kidney replaced by transplant H/O chronic hepatitis Personal history of other diseases of digestive system documented in this encounter Care Teams Banking Paralegal Relationship Specialty Start Date End Date Urbano Denis DO [facility] [address] [place] [address] PCP - General 09/03/12 03/17/22 Ruchi Valles RN Nurse Clinic Transplant Surgery 07/30/15 documented as of this encounter
--- OUTSIDE RECORDS SUMMARY | 2024-04-04 14:07 | XMS_ITS | Encounter Summary ---
Author Organization [place] [id number] Care Team Providers Care Vp Software Engineering Name Role Phone Urbano Denis DO Primary Care Provider Reason for Referral * Diagnostic Test (Routine) - Closed Specialty Diagnoses / Procedures Referred By Contac t Referred To Contact Radiology Diagnoses Ureteral stricture Procedures IR all procedures Santosh Arredondo MD [facility] [place] [address] [place] [address] Referral ID Status Reason Start Date Expiration Date V isits Requested Visits Authorized [id number] Closed Specialty Service Requested 06/03/2016 06/03/2017 1 1 Reason for Visit * Diagnostic Test (Routine) - Closed Specialty Diagnoses / Procedures Referred By Contac t Referred To Contact Radiology Diagnoses Ureteral stricture Procedures IR all procedures Santosh Arredondo MD [facility] [place] [address] [place] [address] Referral ID Status Reason Start Date Expiration Date V isits Requested Visits Authorized [id number] Closed Specialty Service Requested 06/03/2016 06/03/2017 1 1 Encounter Details Date Type Department Care Team (Latest Contact Info) Description 06/09/2016 6:46 AM EST - 06/09/2016 11:59 PM EST Hospital Encounter Radiology at [facility] [place] [address] Santosh Arredondo MD [facility] [place] [address] Ureteral stricture Discharge Disposition: Home Social History [...] Tomlin RN - 06/09/2016 8:25 AM EST [facility] Vascular and Interventional Radiology Discharge Instructions [...] is during regular office hours, please call [phone]. If it is after regular office hours, or on weekends or holidays, please call [phone] and ask to speak to the Copy Lathe Tender environmental health and safety intern for Interventional Radiology. You may resume your [...] the renal pelvis with ligation of the lower [place] ureter on 05/20/2016. Nephrostomy tube was [...] by Que Amaro MD at [facility] [...] at [facility] ??? Pro reimplant ureter, single ureter Left 05/20/2016 @URETERONEOCYSTOSTOMY ANASTOMOSIS OF SINGLE URETER TO BLADDER performed by Santosh Arredondo MD at [facility] ??? Pro reimplant ureter, single ureter N/A 05/20/2016 @URETERONEOCYSTOSTOMY ANASTOMOSIS OF SINGLE URETER TO BLADDER performed by Que Amaro MD at [facility] Medications: Current Outpatient Prescriptions on File [...] : 1950 AGE 65 y.o. Address: [address] [place] [phone] (home) [phone] (work) Mobile: Telephone Information: Referring Provider: Santosh [...] by Que Amaro MD at [facility] [...] at [facility] ??? Pro reimplant ureter, single ureter Left 05/20/2016 @URETERONEOCYSTOSTOMY ANASTOMOSIS OF SINGLE URETER TO BLADDER performed by Santosh Arredondo MD at [facility] ??? Pro reimplant ureter, single ureter N/A 05/20/2016 @URETERONEOCYSTOSTOMY ANASTOMOSIS OF SINGLE URETER TO BLADDER performed by Que Amaro MD at [facility] Date/Procedure? Med's given/comments 01/08/2015: Tunneled HD [...] mouth daily. 11/15/15 11/14/16 Que Amaro MD documented in this encounter Procedure Notes [...] the renal pelvis with ligation of the lower [place] ureter on 05/20/2016. Nephrostomy tube was [...] PM EDT Office Visit Cardiology at [address] [phone] Jay Urban MD [facility] [place] [address] 04/15/2024 10:00 AM EDT Hospital Encounter Non-Invasive Cardiology Lab [facility] [place] [address] Arrived documented as of this encounter [...] the renal pelvis with ligation of the lower [place] ureter on 05/20/2016. Nephrostomy tube was [...] Lange performed this procedure. Santosh Arredondo MD [facility] IR ORDERABLES documented in this encounter Visit [...] 10 mg, Subcutaneous, ONCE, 1 dose, On 06/09/16 at 0730, For use in Interventional Radiology (IR) only for procedure with direct provider supervision and verbal order., Angio/IR (Intra-Procedure), Routine Given 06/09/2016 8:08 AM EST 10 mg documented in this encounter Care Teams Vp Software Engineering Relationship Specialty Start Date End Date Urbano Denis DO [address] [place] [address] PCP - General 09/03/12 03/17/22 Ruchi Valles RN Nurse Clinic Transplant Surgery 07/30/15 documented as of this encounter
--- OUTSIDE RECORDS SUMMARY | 2024-04-04 14:07 | XMS_ITS | Encounter Summary ---
Author Organization [facility] [place] [address] Care Team Providers Care Area Development Manager Name Role Phone Urbano Denis DO Primary Care Provider Encounter Details Date Type Department Care Team (Latest Contact Info) Description 06/03/2016 10:00 AM EST Procedure visit Urology at [facility] [place] [address] Other symptoms and signs involving the genitourinary [...] PM EDT Office Visit Cardiology at [address] [phone] Jay Urban MD [facility] [place] [address] 04/15/2024 10:00 AM EDT Hospital Encounter Non-Invasive [place] [address] Arrived documented as of this encounter Procedures Procedure Name Priority Date/Time Associated Diagnosis Comments URINE CULTURE Routine 06/03/2016 10:44 AM EST Other symptoms and signs involving the genitourinary system documented in this encounter Results * Urine culture Clean Catch Urine (06/03/2016 10:44 AM EST) Urine Culture No growth (Less than 1,000 cfu/ml). [facility] Urine specimen obtained via indwelling urinary catheter (specimen) 06/03/2016 10:44 AM EST 06/03/2016 1:17 PM EST Narrative Resulting Agency Comment Spec In Lab Santosh Arredondo MD MICROBIOLOGY - [place] [address] documented in this encounter Visit Diagnoses Diagnosis Other symptoms and signs involving the genitourinary system documented in this encounter Care Teams Area Development Manager Relationship Specialty Start Date End Date Urbano Denis DO [address] [place] [address] PCP - General 09/03/12 03/17/22 Ruchi Valles RN Nurse Clinic Transplant Surgery 07/30/15 documented as of this encounter
--- OUTSIDE RECORDS SUMMARY | 2024-04-04 14:07 | XMS_ITS | Encounter Summary ---
Author Organization [facility] Address [facility] [place] [address] Care Team Providers Care Program Project Analyst Name Role Phone Urbano Denis DO Primary Care Provider Encounter Details Date Type Department Care Team (Late st Contact Info) Description 06/03/2016 9:00 AM EST Office Visit [place] [address] Que Amaro MD [facility] [place] [address] H/O kidney transplant; H/O chronic hepatitis Social [...] vaccine 05/20/2021 ??? Hepatitis C screening (B. [id number]) Completed ??? Influenza (Flu) vaccine Completed ??? [...] EXTREMITY performed by Que Amaro MD at [facility] MAIN OR ??? Pro transplantation of kidney N/A 09/16/2015 @KIDNEY TRANSPLANT, WITHOUT RECIPIENT NEPHRECTOMY performed by Franko Larkin MD at [facility] OR ??? Pro transplant, prep cadaver renal graft N/A 09/16/2015 @PREPARATION CADAVERIC RENAL ALLOGRAFT performed by Franko Larkin MD at [facility] MAIN OR ??? N/A 09/16/2015 ORGAN ACQUISITION RENAL, CADAVERIC performed by Franko Larkin MD at [facility] MAIN OR ??? Pro reimplant ureter, single ureter Left 05/20/2016 @URETERONEOCYSTOSTOMY ANASTOMOSIS OF SINGLE URETER TO BLADDER performed by Santosh Arredondo MD at [facility] MAIN OR ??? Pro reimplant ureter, single ureter N/A 05/20/2016 @URETERONEOCYSTOSTOMY ANASTOMOSIS OF SINGLE URETER TO BLADDER performed by Que Amaro MD at [facility] MAIN OR FAMILY HISTORY: No family history [...] [address] RD - 06/03/2016 9:00 AM EST [facility] Post Transplant Nutrition Follow Up Date: 06/03/2016 Patient: Cody Bolden Transplant Date: 09/16/15 [place] organ UNOS diagnosis: Transplant: Mr. Cody Bolden [...] Value Date CHLPL 131 06/03/2016 Assessment: This repairer typewriter reviewed patient's labs with him and his [...] PM EDT Office Visit Cardiology at [address] [phone] Jay Urban MD [facility] [place] [address] 04/15/2024 10:00 AM EDT Hospital Encounter Non-[place] [address] Arrived Pending Results Name Type Priority Associated [...] [facility] Leukocytes, Urine Dipstick Small(A) Negative [facility] Appearance, Urine Dipstick Hazy(A) Clear [facility] Specific [place] Urine Automated 1.023 1.002 - 1.030 [facility] Color, Urine Dipstick Yellow Yellow [facility] RBC, Urine >182(H) 0 - 3 /HPF [facility] WBC, Urine 20(H) 0 - 3 /HPF [facility] Bacteria, Urine Rare(A) None /HPF [facility] Squamous Epithelial Cells, Urine <1 <=4 /HPF [facility] Calcium Oxalate Crystal, Urine Few(A) None /HPF [facility] Reflex to Culture Dup Culture [facility] Urine specimen obtained by clean catch procedure (specimen) 06/03/2016 2:05 PM EST 06/03/2016 2:05 PM EST Narrative Resulting Agency Comment Spec In Lab Que Amaro MD URINE ORDERABL ES Performing Organization Address [facility] Co de Phone Number [facility] [place] [address] * Albumin Level (06/03/2016 9:52 AM EST) Albumin 4.0 3.2 - 5.2 gm/dL [facility] Blood specimen (specimen) 06/03/2016 9:52 AM EST 06/03/2016 9:55 AM EST Narrative Resulting Agency Comment Spec In Lab Que Amaro MD CHEMISTRY ORDE RABLES Performing Organization Address [facility]/ZIP Co de Phone Number [facility] [place] [address] * (ABNORMAL) Liver Fibrosis Panel (06/03/2016 9:52 AM EST) Liver Fibrosis Panel FLEXITEST 3(A) [facility] Comment: FLEXITEST 3 TESTS RESULTS--------UNITS--REF. [...] 0.61-0.62 ?A2-A3 0.63-1.00 ?A3 ? severe activity Cwtvf-1-Ncwwcygmxdyvn ? 267 ?mg/dL ??106-279 Haptoglobin ? 235 H ?mg/dL ??43-212 Apolipoprotein A1 ? 128 ?mg/dL ??94-176 Total Bilirubin ? 0.9 ?mg/dL ??0.2-1.2 GGT ?55 ?U/L ??3- 70 ALT ?28 ?U/L ??9- 46 Reference ID ?[id number] Footnote ?SEE NOTE The reliability of results [...] The performance characteristics have been determined by [facility], [place]. It has not been cleared or approved by the U.S. Food and Drug Administration. Performance characteristics refer to the analytical performance of the test. [employer], the associated logo, [employer] and all associated [employer] are the registered trademarks of [employer]. All third libertarian jacobsen - (R) and (TM) - are the property of their respective owners. (C) [id number] [employer]. All rights reserved. Test performed by: ? [facility] ? [address] ? [place] [address] ? Phone: ??[phone] Director: ??Tanmay Huggins M.D. Test Reported by Brittanie Sheikh, [facility], [address] [place], [place] Fer Stoll M.D., Ph.D., Director of Laboratories , [facility] [id number] Blood specimen (specimen) 06/03/2016 9:52 AM EST 06/03/2016 10:00 AM EST Narrative Resulting Agency Comment Spec In Lab Que Amaro MD LAB SEND OUT O RDERABLES [facility] [place] [address] * Tacrolimus level (06/03/2016 9:52 AM EST) Tacrolimus 4.1 ng/mL [facility] Comment: Trough therapeutic: ??5-15 ng/mL Performed by ultra-performance liquid chromatography tandem mass spectrometry (UPLCMS/MS). Blood specimen (specimen) 06/03/2016 9:52 AM EST 06/03/2016 10:55 AM EST Narrative Resulting Agency Comment Spec In Lab Que Amaro MD CHEMISTRY ORDE DICK Performing Organization Address [facility] Co de Phone Number [facility] [place] [address] * Reticulocyte Count (06/03/2016 9:52 AM EST) Reticulocyte % 1.6 0.7 - 2.6 % [facility] Retic Abs # 0.070 0.030 - 0.120 x10(6)/mcL [facility] Immature Retic% 7.4 0.0 - 15.6 % [facility] Reticulated Hgb 36.7 31.3 - 40.[address] [facility] Blood specimen (specimen) 06/03/2016 9:52 AM EST 06/03/2016 9:55 AM EST Narrative Resulting Agency Comment Spec In Lab Que Amaro MD HEMATOLOGY ORD ERABLES Performing Organization Address City/[facility] Co de Phone Number [facility] [place] [address] * Uric acid (06/03/2016 9:52 AM EST) Uric Acid 6.0 3.5 - 8.5 mg/dL [facility] Blood specimen (specimen) 06/03/2016 9:52 AM EST 06/03/2016 9:55 AM EST Narrative Resulting Agency Comment Spec In Lab Que Amaro MD CHEMISTRY ROCHELLE JENNINGS Performing Organization Address [facility]/ZIP Co de Phone Number [facility] [place] [address] * (ABNORMAL) Phosphorus (06/03/2016 9:52 AM EST) Phosphorus 2.4(L) 2.5 - 4.5 mg/dL [facility] Blood specimen (specimen) 06/03/2016 9:52 AM EST 06/03/2016 9:55 AM EST Narrative Resulting Agency Comment Spec In Lab Que Amaro MD CHEMISTRY ROCHELLE JENNINGS Performing Organization Address [facility] Co de Phone Number [facility] [place] [address] * (ABNORMAL) Magnesium (06/03/2016 9:52 AM EST) Magnesium 0.59(L) 0.69 - 1.07 mmol/L [facility] Blood specimen (specimen) 06/03/2016 9:52 AM EST 06/03/2016 9:55 AM EST Narrative Resulting Agency Comment Spec In Lab Que Amaro MD CHEMISTRY ROCHELLE JENNINGS Performing Organization Address [facility] Co de Phone Number [facility] [place] [address] * Cholesterol, total (06/03/2016 9:52 AM EST) Cholesterol, Total 131 <=199 mg/dL [facility] Comment: Recommendations of the NCEP Adult Treatment Panel for the following risk cutoff thresholds for the [place] population: Desirable: <200 mg/dL Borderline High: 200-239 mg/dL High: > or = 240 mg/dL Blood specimen (specimen) 06/03/2016 9:52 AM EST 06/03/2016 9:55 AM EST Narrative Resulting Agency Comment Spec In Lab Que Amaro MD CHEMISTRY ROCHELLE JENNINGS [facility] [place] [address] * (ABNORMAL) Basic Metabolic Panel (non-fasting) (06/03/2016 9:52 AM EST) Glucose 166 65 - 199 mg/dL [facility] Comment:Diabetes: >=200 mg/d L plus symptoms Blood Urea Nitrogen 16 10 - 20 mg/dL [facility] [...] 145 mmol/L [facility] Potassium 4.1 3.5 - 5.0 mmol/L [facility] Comment: Please note: ??Patients with WBC >100,000 may have falsely elevated Potassium levels. ??For accurate Potassium quantification in these patients send serum separator tube (gold top) for subsequent determinations. ??Contact the Clinical Chemistry Laboratory if there are any questions. Chloride 96(L) 98 - 107 mmol/L [facility] Carbon Dioxide 28 22 - 31 mmol/L [facility] Anion Gap 14 5 - 15 mmol/L [facility] Calcium 9.7 8.5 - 10.5 mg/dL [facility] Est Glomerular Filtration Rate 58(L) [...] the following links into your internet browser. [email or web address] Blood specimen (specimen) 06/03/2016 9:52 AM EST 06/03/2016 9:55 AM EST Narrative Resulting Agency Comment Spec In Lab Que Amaro MD CHEMISTRY ROCHELLE JENNINGS Performing Organization Address City/State/[facility] Co de Phone Number [facility] [place] [address] documented in this encounter Visit Diagnoses Diagnosis H/O kidney transplant Kidney replaced by transplant H/O chronic hepatitis Personal history of other diseases of digestive system documented in this encounter Care Teams Program Project Analyst Relationship Specialty Start Date End Date Urbano Denis DO [address] [place] [address] [address] [facility] [address] [place] [address] PCP - General 09/03/12 03/17/22 Ruchi Valles RN Nurse Clinic Transplant Surgery 07/30/15 documented as of this encounter
--- OUTSIDE RECORDS SUMMARY | 2024-04-04 14:08 | XMS_ITS | Encounter Summary ---
Author Organization [facility] Address [facility] [place] [address] Care Team Providers Care Energy Efficiency Specialist Name Role Phone Urbano Denis DO Primary Care Provider Reason for Visit * Auth/Cert Specialty Diagnoses / Procedures Referred By Humberto t Referred To Contact Diagnoses Dehydration Referral ID Status Reason Start Date Expiration Date Visits Re quested Visits Authorized [id number] 1 1 Encounter Details Date Type Department Care Team (Late st Contact Info) Description 05/13/2016 4:29 PM EST - 05/28/2016 2:34 PM [facility] Hospital Encounter [address] [place] [address] Que Amaro MD [facility] [place] [address] Kitty Marie MD [facility] [place] [address] Dehydration Discharge Disposition: Home Social History Tobacco [...] - Primary * Pako Booth MD - Resident-Crimper Operator Panel 2: * Que Amaro MD [...] evidence of viral inclusions. B - [place] left ureter: ? 1. Benign ureter. ? [...] cross- sections. ??(R2) B - ??Labeled/Fixative: [place] left ureter, fresh. Quantity/Size: Single, 8.2 x [...] 8:00 AM LAB, THREE L Lab [facility]L [facility] 06/03/2016 9:00 AM Que Amaro MD Le[facility] Trans 2M [facility] 06/03/2016 10:00 AM URODYNAMIC LAB [facility] 06/03/2016 10:00 AM UROLOGY, NURSE [facility] 06/03/2016 10:40 AM Moy Arerdondo MD [facility] 06/25/2016 10:00 AM Franko Kim MD Leb Infec 5C [facility] 09/15/2016 9:00 AM LAB, THREE L Lab 3L [facility] 09/15/2016 10:00 AM Tal Eagle MD Leb Trans [address] [place] [address] Outpatient Services/Studies: XR Fluoro Cystogram Standing Status: [...] date and time of your appointment.Phone number: [phone] Future Appointments Date Time Provider Department Center 06/03/2016 8:00 AM LAB, THREE L Lab 3L [facility] 06/03/2016 9:00 AM Que Amaro MD Leb Trans 2M [facility] 06/03/2016 10:00 AM URODYNAMIC LAB Heri Uro [facility] 06/03/2016 10:00 AM UROLOGY, NURSE Leb [...] the message. You can also reach the transcription coordinator after hours by calling (ask for the transcription coordinator on-call). General Instructions None Provider Contact Information: If you have any questions or concerns during daytime hours, please call the Transplant clinic at [phone]. If you have questions or concerns during the night or weekends, please call [phone] ask to be transferred to the medical staff services coordinator refrigeration engineering teacher. Signed: EPIFANIO TORRE MD 05/28/2016 documented in [...] date and time of your appointment.Phone number: [phone] Future Appointments Date Time Provider Department Center 06/03/2016 8:00 AM LAB, THREE L Lab 3L [facility] 06/03/2016 9:00 AM Que Amaro MD Leb Trans [facility] 06/03/2016 10:00 AM URODYNAMIC LAB [facility] 06/03/2016 10:00 AM UROLOGY, NURSE [facility] 06/03/2016 10:40 AM Moy Arredondo MD [facility] 06/25/2016 10:00 AM Franko Kim MD Leb Infec 5C [facility] 09/15/2016 9:00 AM LAB, THREE L Lab 3L [facility] 09/15/2016 10:00 AM Tal Eagle MD [...] Department anytime (day, night, weekend, holiday) at [phone] . After hours, please follow the instructions on the message. You can also reach the transcription coordinator after hours by calling (ask for the transcription coordinator on-call). documented in this encounter Medications [...] from bladder to proximal transplant ureter on group home antibiotics for coag negative staph bacteremia. Keep [...] and anastomosed to proximal graft ureter 2-[place] left ureter divided and dissected then ligated [...] Bolden is a 65 y.o. male on group home IV abx for coag neg staph bacteremia [...] from bladder to proximal transplant ureter on exterminator termite antibiotics for coag negative staph bacteremia. Keep [...] and anastomosed to proximal graft ureter 2-[place] left ureter divided and dissected then ligated [...] Bolden is a 65 y.o. male on exterminator termite IV abx for coag neg staph bacteremia [...] from bladder to proximal transplant ureter on exterminator termite antibiotics for coag negative staph bacteremia. Keep [...] and anastomosed to proximal graft ureter 2-[place] left ureter divided and dissected then ligated [...] Bolden is a 65 y.o. male on group home IV abx for coag neg staph bacteremia [...] from bladder to proximal transplant ureter on group home antibiotics for coag negative staph bacteremia. PLAN: [...] and anastomosed to proximal graft ureter 2-[place] left ureter divided and dissected then ligated [...] Bolden is a 65 y.o. male on exterminator termite IV abx for coag neg staph bacteremia [...] from bladder to proximal transplant ureter on exterminator termite antibiotics for coag negative staph bacteremia. PLAN: [...] Tension free. Short JJ stent placed [place] left ureter divided and dissected then ligated [...] Franko Kim MD Infectious Disease Fellow Pager [phone] Attending Addendum: I have seen and examined the patient, reviewed the data and agree with the note by Dr. Tipton. * Cody Orr - 05/23/2016 2:32 PM EST Khloe Encounter Note Patient Name: Cody Bolden : [id number] MR#: [id number] Admit Date: 05/13/2016 4:29 PM Hospital Day [...] notes. MARS SCHREIBER RN 05/23/2016 Pager # [phone] I performed the above scribed service and agree with the accuracy of the note. Memo Alva MD * Herlinda Bell RD - 05/23/2016 1:24 PM EST This editorial writer has noted that patient has been [...] of bowel function yet 3 Days Post-Op [facility] 10 05/20 - Intraop findings: 1-Graft ureter completely stuck in pelvis, dissected up until the renal pelvis. Boari flap performed and anastomosed to proximal graft ureter 2-[place] left ureter divided and dissected then ligated [...] Bolden is a 65 y.o. male on exterminator termite IV abx for coag neg staph bacteremia [...] from bladder to proximal transplant ureter on group home antibiotics for coag negative staph bacteremia. PLAN: [...] notes. MARS SCHREIBER RN 05/22/2016 Pager # [phone] Ria Schreiber RN, has performed the documentation [...] and anastomosed to proximal graft ureter 2-[place] left ureter divided and dissected then ligated [...] Bolden is a 65 y.o. male on exterminator termite IV abx for coag neg staph bacteremia [...] from bladder to proximal transplant ureter on exterminator termite antibiotics for coag negative staph bacteremia. PLAN: [...] notes. KITTY STEELE RN 05/21/2016 Pager # [phone] Socorro Steele RN, has performed the documentation [...] and anastomosed to proximal graft ureter 2-[place] left ureter divided and dissected then ligated [...] nephrostomy to gravity with clear yellow urine. Whalye with light pink urine. Ext: wwp Neuro: [...] Bolden is a 65 y.o. male on group home IV abx for coag neg staph bacteremia [...] Note Patient: Cody Bolden s/p Surgery: 05/20/2016 [id number] Procedure(s) (LRB): @URETERONEOCYSTOSTOMY ANASTOMOSIS OF SINGLE URETER TO BLADDER (Left) @URETERONEOCYSTOSTOMY ANASTOMOSIS OF SINGLE URETER TO BLADDER (N/A) Surgeon(s) and Role: Panel 1: * Moy Arredondo MD - Primary * Pako Booth MD - Resident-Crimper Operator Panel 2: * Que Amaro MD [...] Bolden is a 65 y.o. male on exterminator termite IV abx for coag neg staph bacteremia [...] of the kidney. Will send ureter for [id number] to determine whether there is evidence of [...] Bolden is a 65 y.o. male on group home IV abx for coag neg staph bacteremia [...] Bolden is a 65 y.o. male on group home IV abx for coag neg staph bacteremia [...] Bolden is a 65 y.o. male on group home IV abx for coag neg staph bacteremia [...] Patient is on a regular diet. This editorial writer spoke with patient and his . [...] Franko Kim MD Infectious Disease Fellow Pager [phone] Attending Addendum: I have seen and examined [...] Bolden is a 65 y.o. male on group home IV abx for coag neg staph bacteremia [...] Bolden is a 65 y.o. male on exterminator termite IV abx for coag neg staph bacteremia [...] MD Transplant [id number] Associated attestation - Que Aamro MD - 05/16/2016 10:16 AM EST I have seen the patient and reviewed the resident's above history and I agree with the details as written. The assessment and plan were formulated in discussion with me and I agree with them as documented. * Herlinda Bell RD - 05/14/2016 1:44 PM EST [facility] Post Transplant Nutrition Follow Up Date: 05/14/2016 Patient: Cody Bolden Transplant Date: 09/16/15 [place] organ UNOS diagnosis: Transplant: Mr. Cody Bolden [...] Value Date CHLPL 134 05/13/2016 Assessment: This editorial writer saw patient in clinic yesterday. He [...] inpatient; hydration status more appropriate. Plan: This editorial writer provided patient with a booklet Tips for Better Food Intake to offer tips for loss ofappetite and help to lessen diarrhea, as well as ideas for healthy snacks. This editorial writer will follow patient's labs and weight [...] Bolden is a 65 y.o. male on group home IV abx for coag neg staph bacteremia [...] tube Discussed Boari flap, graft ureter to pechanga ureter anastomosis, ileal ureter with him and [...] a 65 y.o. male who presents to [facility] with fever. History of Present Illness / [...] further clinical details. Kitty Marie MD 05/13/16 0020 * Paul Bain RN - 05/13/2016 5:33 PM EST Pt's leg bag switched to gravity bag for Pt's comfort. Per his request * Paul Bain RN - 05/13/2016 4:[address] Mix at the bed side * Martina Mix MD - 05/13/2016 4:34 PM EST Emergency Department Cody Bolden is a 65 y.o. male who presents to [facility] with from Transplant Surgery Clinic with an [...] Personalized Care? 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 -- You can call me [facility] -- 05/24/16 1542 05/25/16 1449 Individualization Patient [...] nursing;patient Problem: Health Knowledge, Opportunity to Enhance (Adult,NICU,[place],Obstetrics,Pediatric) Goal: Knowledgeable about Health Subject/Topic Patient will [...] nursing;patient Problem: Health Knowledge, Opportunity to Enhance (Adult,NICU,[place],Obstetrics,Pediatric) Intervention: Enhance Health Knowledge 05/26/16 204 Coping Strategies Supportive Measures active listening utilized Family/Support System Care involvement promoted Goal: Knowledgeable about Health Subject/Topic Patient will demonstrate the desired outcomes by discharge/transition of care. Outcome: Ongoing (Interventions Implemented as Appropriate) 05/26/16 0128 Health Knowledge, Opportunity to Enhance (Adult,NICU,[place],Obstetrics,Pediatric) Knowledgeable about Health Subject/Topic making progress toward [...] OT needs. Precautions: immunosuppression, IV, whaley Pager: [phone] TAMELA MAK OT 05/25/2016 Occupational Therapy Rehabilitation [...] ambulate. Will continue to monitor. @0551: paged refrigeration engineering teacher MD Bonner for pt's elevated BP ( 184/83 @0424/ 180/81@2943). Pt c/o heartburnbut no chest pain. @0618: [...] Appropriate) 05/24/161541 Health Knowledge, Opportunity to Enhance (Adult,NICU,,Obstetrics,Pediatric) Knowledgeable [...] use of PCEA. Did not give Metop [id number], due to HR <55. Still unable to [...] for further information as needed. Melissa Stone, [facility] P.[id number] Goal: Discharge Needs Assessment Outcome: Ongoing (Interventions [...] to Achieve 1 day Gait Training Goal, Harvey Level independent Gait Training Goal, Distance to Achieve >150' Gait Training Goal, Outcome goal met Goal: Physical Therapy Goal Stand Alone Therapy Goal Outcome: Outcome (s) achieved Date Met: 05/22/16 05/22/16 0953 Physical Therapy Goal PT Goal, Time to Achieve 1 day PT Goal, Harvey Level independent PT Goal, Additional Goal Pt [...] PM EST Patient Name: Cody Bolden : [id number] MR#: [id number] ?? Case Date: 05/20/2016 ?? Surgeon: Surgeon(s) and Role: Panel 1: * Moy Arredondo MD - Primary * Pako Booth MD - Resident-Crimper Operator ?? Panel 2: * Que Amaro MD - Primary ?? Preoperative diagnosis: Transplanted ureter stricture ?? Postoperative diagnosis: Same ?? Procedure(s): Boari flap from bladder to proximal transplant ureter ? Anesthesia: Epidural, General ?? Findings: ?? 1-Graft ureter completely stuck in pelvis, dissected up until the renal pelvis. Boari flap performed and anastomosed to proximal graft ureter 2-[place] left ureter divided and dissected then ligated [...] anastomosis between the graft ureter and the pechanga ureter. The patient was then brought into [...] the bladder until we got to the pechanga ureter, which was divided as it was [...] note, prior to closing the anastomosis, a 6-Maori double-J stent with 12 cm of length [...] Tension free. Short JJ stent placed [place] left ureter divided and dissected then ligated after observing it throughout the procedure without urine production MOY ARREDONDO MD 05/22/2016 * Brief Op Note - Pako Booth - 05/20/2016 9:09 PM EST Brief Operative Note Patient Name: Cody Bolden : [id number] MR#: [id number] Case Date: 05/20/2016 Surgeon: Surgeon(s) and Role: Panel 1: * Moy Arredondo MD - Primary * Pako Booth MD - Resident-Crimper Operator Panel 2: * Que Amaro MD - Primary Preoperative diagnosis: Transplanted ureter stricture Postoperative diagnosis: Same Procedure(s): Boari flap from bladder to proximal transplant ureter Anesthesia: Epidural, General Findings: 1-Graft ureter completely stuck in pelvis, dissected up until the renal pelvis. Boari flap performed and anastomosed to proximal graft ureter 2-[place] left ureter divided and dissected then ligated [...] nursing;patient;physician * Consult Note - Eleanor Bird [facility] - 05/17/2016 1:19 PM EST Clinical Pharmacist Note-Vancomycin Cody Gomez Yuan [phone] Cody Pendletonneri is a 65 y.o. [...] have. Alternately, during off-hours you may call [phone] to contact a pharmacist. ELEANOR BIRD [facility] Ext [phone] * Consult Note - Guy Almanza RN [...] of infiltration/extravasation Name of MD contacted Paged [phone] pager at [phone] 05/17 Name of RN contacted Katharine STANLEY 05/17 at 0900 Name of Pharmacist if consulted N/A Name of Plastics MD ( if consulted) NA (Mandatory photo for infiltrations/ extravasations scoring a stage 2 or greater, but recommended for stage 1)( include measuring tape and identifier in the photo) DYE WEIGHER CARING FOR THIS PATIENT WILL CONTINUE TO [...] nursing;physician;patient Problem: Health Knowledge, Opportunity to Enhance (Adult,NICU,[place],Obstetrics,Pediatric) Goal: Identify Related Risk Factors and Signs [...] EST Problem: Health Knowledge, Opportunity to Enhance (Adult,NICU,,Obstetrics,Pediatric) [...] medical attention. * Consult Note - Perla eNal - 05/15/2016 9:13 AM EST UROLOGY CONSULTATION [...] at [facility] MAIN OR ??? Pro transplantation of kidney N/A 09/16/2015 @KIDNEY TRANSPLANT, WITHOUT RECIPIENT NEPHRECTOMY performed by Franko Larkin MD at [facility] MAIN OR ??? Pro transplant, prep cadaver renal graft N/A 09/16/2015 @PREPARATION CADAVERIC RENAL ALLOGRAFT performed by Franko Larkin MD at [facility] MAIN OR ??? N/A 09/16/2015 ORGAN ACQUISITION RENAL, CADAVERIC performed by Franko Larkin MD at [facility] MA[facility] OR SOCIAL HISTORY Social History Social [...] CREATININE 1.23 1.22 1.39 CULTURES: Urine culture [[id number]] (Abnormal) Collected: 05/13/16 1300 ? Lab Status: [...] Sensitive ? Trimethoprim/Sulfa Sensitive ? Blood culture [[id number]] Collected: 05/13/16 1232 ? Lab Status: Preliminary result Specimen: Blood from Peripheral Updated: 05/15/16 1501 ? Blood Culture No growth at 2 days. ? Blood culture [[id number]] Collected: 05/13/16 1219 ? Lab Status: Preliminary result Specimen: Blood from PICC Line Updated: 05/15/16 1501 ? Blood Culture No growth at 2 days. ? Urine culture Nephrostomy Urine [[id number]] Collected: 04/28/16 1344 ? Lab Status: Final [...] EXTREMITY performed by Que Amaro MD at [facility] OR ??? Pro transplantation of kidney N/A 09/16/2015 @KIDNEY TRANSPLANT, WITHOUT RECIPIENT NEPHRECTOMY performed by Franko Larkin MD at [facility] OR ??? Pro transplant, prep cadaver renal graft N/A 09/16/2015 @PREPARATION CADAVERIC RENAL ALLOGRAFT performed by Franko Larkin MD at [facility] OR ??? N/A 09/16/2015 ORGAN ACQUISITION RENAL, CADAVERIC performed by Franko Larkin MD at [facility] OR Prior To Admission Medications: [...] Do not hesitate to page us at [phone] with any further questions or concerns. Franko Kim MD Infectious Disease Fellow Pager [phone] Attending Addendum: I have seen and examined [...] Lives in a home with his in [facility] Social & Family Supports/Community Resources: , family and friends Behavioral Health History: None on file Substance Use/Abuse: None on file Other Pertinent/Service Specific Information: None Health/Prescription Coverage: Primary Insurance: Medicare Part A & B Secondary Insurance: BC/BS Prescription Coverage: Yes [facility] Other: None Primary Care Provider: Urbano Denis MD [phone] Patient/Caregiver Goals of Treatment: Patient states I [...] of care planning. Malina Phelan RN Pager: [phone] * Plan of Care - Keyana Moy [...] PM EDT Office Visit Cardiology at [address] [phone] Jay Urban MD [facility] [place] [address] 04/15/2024 10:00 AM EDT Hospital Encounter [place] [address] Arrived Scheduled Orders Name Type Priority Associated Diagnoses Orde r Schedule XR Fluoro No Rad <1Hr Imaging Routine Onc e PRN (for Radiant use) for 1 Occurrences starting 05/20/2016 until 05/20/2016 documented as of this encounter Procedures Procedure Name Priority Date/Time Associated Diagnosis Comments ALUM OPERATOR SCAN 05/29/2016 12:00 AM EST HEMOGRAM STAT [...] in this encounter Results * SCAN DOC: ALUM OPERATOR (05/29/2016 12:00 AM EST) Anatomical Region Laterality Modality Other Scanning Provider MEDIA MGR SCAN EXT O RDR/RSLT * Tacrolimus level (05/28/2016 8:01 AM EST) Tacrolimus 4.7 ng/mL [facility] Comment: Trough therapeutic: ??5-15 ng/mL Performed by ultra-performance liquid chromatography tandem mass spectrometry (UPLCMS/MS). Blood specimen (specimen) 05/28/2016 8:01 AM EST 05/28/2016 11:10 AM EST Narrative Resulting Agency Comment Spec In Lab Que Amaro MD CHEMISTRY ROCHELLE JENNINGS Performing Organization Address [facility]/ZIP Co de Phone Number [facility] [place] [address] * (ABNORMAL) Differential, Automated (05/28/2016 8:01 AM EST) Neutrophil % 82.6 % [facility] Neutrophil Absolute 10.51(H) 1.70 - 6.10 x10(3)/mc L [facility] Lymph % 9.7 % [facility] Lymphocytes Abs 1.2 0.9 - 3.2 x10(3)/mc L [facility] Monocyte % 5.3 % [facility] Monocyte Abs 0.7 0.3 - 0.9 x10(3)/ L [facility] Eos % 1.5 % [facility] Eosinophils Abs 0.2 0.0 - 0.4 x10(3)/ L [facility] Basophil % 0.4 % [facility] Baso Absolute 0.0 0.0 - 0.1 x10(3)/mc L [facility] Immature Gran % 0.50 % [facility] Comment: Immature granulocytes(IG's)percentage and absolute count will include metamyelocytes, myelocytes, and promyelocytes. Blood smears from CBCs yielding IG's will be scanned manually for concordance. If this scan disagrees with the automated IG or if promyelocytes are noted, a manual differential will be performed. Immature Gran Absolute 0.07(H) 0.00 - 0.04 x10(3)/mc L [facility] Blood specimen (specimen) 05/28/2016 8:01 AM EST 05/28/2016 8:07 AM EST Narrative Resulting Agency Comment Spec In Lab Que Amaro MD HEMATOLOGY STEVE LINARES Performing Organization Address City/[facility]/ZIP Co de Phone Number [facility] [place] [address] * (ABNORMAL) Hemogram (05/28/2016 8:01 AM EST) White Blood Cell 12.7(H) 4.0 - 9.5 x10(3)/[facility] Red Blood Cell 4.20(L) 4.58 - 5.54 x10(6)/mc L [facility] Hemoglobin 13.8 13.7 - 16.5 gm/dL [facility] Hematocrit 39.6(L) 40.5 - 48.5 % [facility] Mean Cell Volume 94.3(H) 82.9 - 93.1 fL [facility] Mean Cell Hemoglobin 32.9(H) 27.5 - 32.1 pg [facility] Mean Cell Hemoglobin Concentration 34.8 32.0 - 35.7 gm/dL [facility] Platelet 276 145 - 357 x10(3)/[facility] LABORATORY RDW Standard Deviation 45.1(H) 36.0 - 45.0 [facility]ATORY RDW coefficient of variation 13.2 11.4 - 13.8 % [facility] Mean Platelet Volume 8.5 7.6 - 12.9 [facility] LABORATORY NRBC% auto 0.0 % [facility] NRBC Absolute 0.000 0.000 - 0.000 x10(3)/[facility] Blood specimen (specimen) 05/28/2016 8:01 AM EST 05/28/2016 8:07 AM EST Narrative Resulting Agency Comment Spec In Lab Que Amaro MD HEMATOLOGY ORD ERABLES [facility] [place] [address] * (ABNORMAL) Magnesium (05/28/2016 8:01 AM EST) Magnesium 0.68(L) 0.69 - 1.07 mmol/L [facility] Blood specimen (specimen) 05/28/2016 8:01 AM EST 05/28/2016 8:07 AM EST Narrative Resulting Agency Comment Spec In Lab Que Amaro MD CHEMISTRY ROCHELLE JENNINGS Performing Organization Address City/[facility] Co de Phone Number [facility] [place] [address] * Phosphorus (05/28/2016 8:01 AM EST) Phosphorus 2.7 2.5 - 4.5 mg/dL [facility] Blood specimen (specimen) 05/28/2016 8:01 AM EST 05/28/2016 8:07 AM EST Narrative Resulting Agency Comment Spec In Lab Que Amaro MD CHEMISTRY ROCHELLE JENNINGS Performing Organization Address [facility] Co de Phone Number [facility] [place] [address] * Basic Metabolic Panel (non-fasting) (05/28/2016 8:01 AM EST) Glucose 181 65 - 199 mg/dL [facility] Comment:Diabetes: >=200 mg/d L plus symptoms Blood Urea Nitrogen 19 10 - 20 mg/dL [facility] Creatinine 1.16 0.80 - 1.50 mg/dL [facility] Comment: Please note that the pediatric reference intervals supplied above were not validated at [facility]. Results from pediatric patients should be interpreted in conjunction to the patient's age, height and muscle mass. Sodium 141 135 - 145 mmol/L [facility] Potassium 3.8 3.5 - 5.0 mmol/L [facility] Comment: Please note: ??Patients with WBC >100,000 may have falsely elevated Potassium levels. ??For accurate Potassium quantification in these patients send serum separator tube (gold top) for subsequent determinations. ??Contact the Clinical Chemistry Laboratory if there are any questions. Chloride 104 98 - 107 mmol/L [facility] Carbon Dioxide 23 22 - 31 mmol/L [facility] LABORATORY Anion Gap 14 5 - 15 mmol/L [facility] Calcium 9.4 8.5 - 10.5 mg/dL [facility] Est Glomerular Filtration Rate >60 >=60 [facility] Comment: This [...] the following links into your internet browser. [email or web address] Blood specimen (specimen) 05/28/2016 8:01 AM EST 05/28/2016 8:07 AM EST Narrative Resulting Agency Comment Spec In Lab Que Amaro MD CHEMISTRY ROCHELLE JENNINGS [facility] [place] [address] * (ABNORMAL) Differential, Automated (05/27/2016 5:43 AM EST) Neutrophil % 87.9 % [facility] Neutrophil Absolute 11.88(H) 1.70 - 6.10 x10(3)/mc L [facility] Lymph % 5.0 % [facility] Lymphocytes Abs 0.7(L) 0.9 - 3.2 x10(3)/mc L [facility] Monocyte % 5.5 % [facility] Monocyte Abs 0.8 0.3 - 0.9 x10(3)/mc L [facility] Eos % 0.9 % [facility] Eosinophils Abs 0.1 0.0 - 0.4 x10(3)/mc L [facility] Basophil % 0.3 % [facility] Baso Absolute 0.0 0.0 - 0.1 x10(3)/ L [facility] Immature Gran % 0.40 % [facility] Comment: Immature granulocytes(IG's)percentage and absolute count will include metamyelocytes, myelocytes, and promyelocytes. Blood smears from CBCs yielding IG's will be scanned manually for concordance. If this scan disagrees with the automated IG or if promyelocytes are noted, a manual differential will be performed. Immature Gran Absolute 0.06(H) 0.00 - 0.04 x10(3)/[facility] LABORATORY Blood specimen (specimen) 05/27/2016 5:43 AM EST 05/27/2016 6:09 AM EST Narrative Resulting Agency Comment Spec In Lab Que Amaro MD HEMATOLOGY ORD ERABLES Performing Organization Address City/State/[facility] Co de Phone Number [facility] [place] [address] * (ABNORMAL) Hemogram (05/27/2016 5:43 AM EST) White Blood Cell 13.5(H) 4.0 - 9.5 x10(3)/[facility] LABORATORY Red Blood Cell 4.10(L) 4.58 - 5.54 x10(6)/ L [facility] Hemoglobin 13.1(L) 13.7 - 16.5 gm/dL [facility] Hematocrit 38.5(L) 40.5 - 48.5 % [facility] Mean Cell Volume 93.9(H) 82.9 - 93.1 fL [facility] Mean Cell Hemoglobin 32.0 27.5 - 32.1 pg [facility] Mean Cell Hemoglobin Concentration 34.0 32.0 - 35.7 gm/dL [facility] Platelet 246 145 - 357 x10(3)/[facility] LABORATORY RDW Standard Deviation 44.5 36.0 - 45.0 [facility] LABORATORY RDW coefficient of variation 13.1 11.4 - 13.8 % [facility] Mean Platelet Volume 8.8 7.6 - 12.9 fL [facility] NRBC% auto 0.0 % [facility] NRBC Absolute 0.000 0.000 - 0.000 x10(3)/mc L [facility] Blood specimen (specimen) 05/27/2016 5:43 AM EST 05/27/2016 6:09 AM EST Narrative Resulting Agency Comment Spec In Lab Que Amaro MD HEMATOLOGY ORD ERABLES Performing Organization Address City/[facility]/ZIP Co de Phone Number [facility] [place] [address] * Magnesium (05/27/2016 5:43 AM EST) Magnesium 0.73 0.69 - 1.07 mmol/L [facility] Blood specimen (specimen) 05/27/2016 5:43 AM EST 05/27/2016 6:09 AM EST Narrative Resulting Agency Comment Spec In Lab Que Amaro MD CHEMISTRY ORDBhargav JENNINGS Performing Organization Address City/[facility]/ZIP Co de Phone Number [facility] [place] [address] * Phosphorus (05/27/2016 5:43 AM EST) Phosphorus 3.2 2.5 - 4.5 mg/dL [facility] Blood specimen (specimen) 05/27/2016 5:43 AM EST 05/27/2016 6:09 AM EST Narrative Resulting Agency Comment Spec In Lab Que Amaro MD CHEMISTRY ORDBhargav JENNINGS Performing Organization Address City/[facility]/ZIP Co de Phone Number [facility] [place] [address] * Basic Metabolic Panel (non-fasting) (05/27/2016 5:43 AM EST) Glucose 148 65 - 199 mg/dL [facility] Comment:Diabetes: >=200 mg/d L plus symptoms Blood Urea Nitrogen 17 10 - 20 mg/dL [facility] Creatinine 1.04 0.80 - 1.50 mg/dL [facility] Comment: Please note that the pediatric reference intervals supplied above were not validated at [facility]. Results from pediatric patients should be interpreted in conjunction to the patient's age, height and muscle mass. Sodium 141 135 - 145 mmol/L [facility] Potassium 3.8 3.5 - 5.0 mmol/L [facility] Comment: Please note: ??Patients with WBC >100,000 may have falsely elevated Potassium levels. ??For accurate Potassium quantification in these patients send serum separator tube (gold top) for subsequent determinations. ??Contact the Clinical Chemistry Laboratory if there are any questions. Chloride 102 98 - 107 mmol/L [facility] Carbon Dioxide 24 22 - 31 mmol/L [facility] Anion Gap 15 5 - 15 mmol/L [facility] Calcium 9.0 8.5 - 10.5 mg/dL [facility] Est Glomerular Filtration Rate >60 >=60 [facility] Comment: This [...] the following links into your internet browser. [email or web address] Blood specimen (specimen) 05/27/2016 5:43 AM EST 05/27/2016 6:09 AM EST Narrative Resulting Agency Comment Spec In Lab Que Amaro MD CHEMISTRY ROCHELLE JENNINGS [facility] Organization Address City/State/ZIP Co de Phone Number [facility] [place] [address] * Potassium (05/26/2016 4:57 PM EST) Potassium 4.5 3.5 - 5.0 mmol/L [facility] [...] MD CHEMISTRY ROCHELLE JENNINGS [facility] [place] [place] [address] * XR Chest PA & Lateral (Generic) [...] Blood Culture No growth at 5 days. [facility] Blood specimen (specimen) 05/26/2016 10:09 AM EST 05/26/2016 10:35 AM EST Comment:R AC Narrative Resulting Agency Comment Spec In Lab Que Amaro MD MICROBIOLOGY - BLOOD ORDERABLES Performing Organization Address [facility] Co de Phone Number [facility] [place] [address] * Blood culture (05/26/2016 10:04 AM EST) Blood Culture No growth at 5 days. [facility] Blood specimen (specimen) 05/26/2016 10:04 AM EST 05/26/2016 10:35 AM EST Comment:R H Narrative Resulting Agency Comment Spec In Lab Que Amaro MD MICROBIOLOGY - BLOOD ORDERABLES Performing Organization Address [facility] Co de Phone Number [facility] [place] [address] * Urine Hold (05/26/2016 9:54 AM EST) Hold, Urine Sample in lab. [facility] Urine specimen (specimen) Urine / Unknown 05/26/2016 9:54 AM EST 05/26/2016 10:46 AM EST Que Amaro MD URINE ORDERABL ES Performing Organization Address [facility] Co de Phone Number [facility] [place] [address] * (ABNORMAL) Urinalysis without microscopic (05/26/2016 9:54 AM EST) Glucose, Urine Dipstick Negative Negative mg/dL [facility] Protein, Urine Dipstick 100(A) Negative mg/dL [facility] Bilirubin, Urine [...] 8.0 [facility] Blood, Urine Dipstick Moderate(A) Negative mg/dL [facility] Ketone, Urine Dipstick Negative Negative mg/dL [facility] Nitrite, Urine Dipstick Negative Negative [facility] Leukocytes, Urine Dipstick Moderate(A) Negative [facility] LABORATORY Appearance, Urine Dipstick Clear Clear [facility] Specific [place] Urine Automated 1.027 1.002 - 1.030 [facility] Color, Urine Dipstick Muna Yellow [facility] Urine specimen (specimen) 05/26/2016 9:54 AM EST 05/26/2016 10:46 AM EST Narrative Resulting Agency Comment Spec In Lab Que Amaro MD URINE ORDERABL ES [facility] [place] [address] * Urine culture Indwelling Catheter Urine (05/26/2016 9:53 AM EST) Urine Culture No growth (Less than 1,000 cfu/ml). [facility] Urine specimen obtained via indwelling urinary catheter (specimen) 05/26/2016 9:53 AM EST 05/26/2016 10:56 AM EST Narrative Resulting Agency Comment Spec In Lab Que Amaro MD MICROBIOLOGY - GENERAL ORDERABLES Performing Organization Address [facility] Co de Phone Number [facility] [place] [address] * Tacrolimus level (05/26/2016 7:35 AM EST) Pathologist [facility] Tacrolimus 5.3 ng/mL [facility] Comment: Trough therapeutic: ??5-15 ng/mL Performed by ultra-performance liquid chromatography tandem mass spectrometry (UPLCMS/MS). Blood specimen (specimen) 05/26/2016 7:35 AM EST 05/26/2016 11:12 AM EST Narrative Resulting Agency Comment Spec In Lab Que Amaro MD CHEMISTRY ORDE RABLES Performing Organization Address [facility] de Phone Number [facility] [place] [address] * (ABNORMAL) Differential, Automated (05/26/2016 4:30 AM EST) Pathologist [facility] Neutrophil % 80.7 % [facility] Neutrophil Absolute 10.51(H) 1.70 - 6.10 x10(3)/mc L [facility] Lymph % 10.3 % [facility] Lymphocytes Abs 1.3 0.9 - 3.2 x10(3)/mc L [facility] Monocyte % 6.5 % [facility] Monocyte Abs 0.8 0.3 - 0.9 x10(3)/mc L [facility] Eos % 1.6 % [facility] Eosinophils Abs 0.2 0.0 - 0.4 x10(3)/mc L [facility] Basophil % 0.4 % [facility] Baso Absolute 0.0 0.0 - 0.1 x10(3)/mc L [facility] Immature Gran % 0.50 % [facility] Comment: Immature granulocytes(IG's)percentage and absolute count will include metamyelocytes, myelocytes, and promyelocytes. Blood smears from CBCs yielding IG's will be scanned manually for concordance. If this scan disagrees with the automated IG or if promyelocytes are noted, a manual differential will be performed. Immature Gran Absolute 0.06(H) 0.00 - 0.04 x10(3)/ L [facility] Blood specimen (specimen) 05/26/2016 4:30 AM EST 05/26/2016 4:44 AM EST Narrative Resulting Agency Comment Spec In Lab Que Amaro MD HEMATOLOGY ORD ERABLES [facility] [place] [place] [address] * (ABNORMAL) Hemogram (05/26/2016 4:30 AM EST) White Blood Cell 13.0(H) 4.0 - 9.5 x10(3)/ L [facility] Red Blood Cell 4.67 4.58 - 5.54 x10(6)/[facility] LABORATORY Hemoglobin 14.8 13.7 - 16.5 gm/dL [facility] Hematocrit 43.2 40.5 - 48.5 % [facility] Mean Cell Volume 92.5 82.9 - 93.1 fL [facility] Mean Cell Hemoglobin 31.7 27.5 - 32.1 pg [facility] Mean Cell Hemoglobin Concentration 34.3 32.0 - 35.7 gm/dL [facility] Platelet 304 145 - 357 x10(3)/ L [facility] RDW Standard Deviation 43.0 36.0 - 45.0 [facility] LABORATORY RDW coefficient of variation 12.9 11.4 - 13.8 % [facility] Mean Platelet Volume 8.6 7.6 - 12.9 fL [facility] NRBC% auto 0.0 % [facility] NRBC Absolute 0.000 0.000 - 0.000 x10(3)/mc L [facility] Blood specimen (specimen) 05/26/2016 4:30 AM EST 05/26/2016 4:44 AM EST Narrative Resulting Agency Comment Spec In Lab Que Amaro MD HEMATOLOGY ORD ERABLES Performing Organization Address [facility] Co de Phone Number [facility] [place] [address] * Magnesium (05/26/2016 4:30 AM EST) Magnesium 0.82 0.69 - 1.07 mmol/L [facility] Blood specimen (specimen) 05/26/2016 4:30 AM EST 05/26/2016 4:44 AM EST Narrative Resulting Agency Comment Spec In Lab Que Amaro MD CHEMISTRY ROCHELLE JENNINGS Performing Organization Address [facility] de Phone Number [facility] [place] [address] * Phosphorus (05/26/2016 4:30 AM EST) Phosphorus 3.0 2.5 - 4.5 mg/dL [facility] Blood specimen (specimen) 05/26/2016 4:30 AM EST 05/26/2016 4:44 AM EST Narrative Resulting Agency Comment Spec In Lab Que Amaro MD CHEMISTRY ORDBhargav JENNINGS Performing Organization Address [facility] de Phone Number [facility] [place] [address] * (ABNORMAL) Basic Metabolic Panel (non-fasting) (05/26/2016 4:30 AM EST) Glucose 224(H) 65 - 199 mg/dL [facility] Comment:Diabetes: >=200 mg/d L plus symptoms Blood Urea Nitrogen 20 10 - 20 mg/dL [facility] Comment:result rechecked-llu Creatinine 1.32 0.80 - 1.50 mg/dL [facility] Comment: Please note that the pediatric reference intervals supplied above were not validated at [facility]. Results from pediatric patients should be interpreted in conjunction to the patient's age, height and muscle mass. Sodium 143 135 - 145 mmol/L [facility] Potassium 3.7 3.5 - 5.0 mmol/L [facility] Comment: Please note: ??Patients with WBC >100,000 may have falsely elevated Potassium levels. ??For accurate Potassium quantification in these patients send serum separator tube (gold top) for subsequent determinations. ??Contact the Clinical Chemistry Laboratory if there are any questions. Chloride 100 98 - 107 mmol/L [facility] Carbon Dioxide 23 22 - 31 mmol/L [facility] Anion Gap 20(H) 5 - 15 mmol/L [facility] Calcium 9.8 8.5 - 10.5 mg/dL [facility] Comment:result rechecked-llu Est Glomerular Filtration Rate 54(L) >=60 [facility] [...] the following links into your internet browser. [email or web address] Blood specimen (specimen) 05/26/2016 4:30 AM EST 05/26/2016 4:44 AM EST Narrative Resulting Agency Comment Spec In Lab Que Amaro MD CHEMISTRY ROCHELLE David Organization Address City/State/ZIP Co de Phone Number [facility] [place] [address] * (ABNORMAL) Basic Metabolic Panel (non-fasting) (05/25/2016 4:38 PM EST) Glucose 189 65 - 199 mg/dL [facility] Comment:Diabetes: >=200 mg/d L plus symptoms Blood Urea Nitrogen 12 10 - 20 mg/dL [facility] Creatinine 1.10 0.80 - 1.50 mg/dL [facility] Comment: Please note that the pediatric reference intervals supplied above were not validated at [facility]. Results from pediatric patients should be interpreted in conjunction to the patient's age, height and muscle mass. Sodium 140 135 - 145 mmol/L [facility] Potassium 4.0 3.5 - 5.0 mmol/L [facility] Comment: Please note: ??Patients with WBC >100,000 may have falsely elevated Potassium levels. ??For accurate Potassium quantification in these patients send serum separator tube (gold top) for subsequent determinations. ??Contact the Clinical Chemistry Laboratory if there are any questions. Chloride 99 98 - 107 mmol/L [facility] Carbon Dioxide 25 22 - 31 mmol/L [facility] Anion Gap 16(H) 5 - 15 mmol/L [facility] Calcium 9.2 8.5 - 10.5 mg/dL [facility] Est Glomerular Filtration Rate >60 >=60 [facility] Comment: This [...] the following links into your internet browser. [email or web address] Blood specimen (specimen) 05/25/2016 4:38 PM EST 05/25/2016 4:44 PM EST Narrative Resulting Agency Comment Spec In Lab Que Amaro MD CHEMISTRY ROCHELLE JENNINGS Performing Organization Address City/[facility]/ZIP Co de Phone Number [facility] [place] [address] * Magnesium (05/25/2016 4:38 PM EST) Magnesium 0.74 0.69 - 1.07 mmol/L [facility] Blood specimen (specimen) 05/25/2016 4:38 PM EST 05/25/2016 4:44 PM EST Narrative Resulting Agency Comment Spec In Lab Que Amaro MD CHEMISTRY ROCHELLE JENNINGS Performing Organization Address [facility] Co de Phone Number [facility] [place] [phone] * XR Abdomen 1 view (Generic) (05/25/2016 [...] with medication in the gut. There is [id number] gaseous distention of the large bowel most [...] correspond withmedication in the gut. There is [id number] gaseous distention of the largebowel most suggestive of an adynamic ileus. No free air is seen. Bony structuresappear intact. IMPRESSION Increasing mild to moderate gaseous distention throughout the large bowelmost suggestive of an adynamic or reactive ileus Que Amaro MD IMG DX ORDERAB LES * (ABNORMAL) Magnesium (05/25/2016 4:47 AM EST) [facility] Magnesium 0.61(L) 0.69 - 1.07 mmol/L [facility] Blood specimen (specimen) 05/25/2016 4:47 AM EST 05/25/2016 4:59 AM EST Narrative Resulting Agency Comment Spec In Lab Que Amaro MD CHEMISTRY ORDBhargav AREVS Performing Organization Address [facility]/ZIP Co de Phone Number [facility] [place] [address] * Phosphorus (05/25/2016 4:47 AM EST) [facility] Phosphorus 2.5 2.5 - 4.5 mg/dL [facility] Blood specimen (specimen) 05/25/2016 4:47 AM EST 05/25/2016 4:59 AM EST Narrative Resulting Agency Comment Spec In Lab Que Amaro MD CHEMISTRY ORDBhargav AREVS Performing Organization Address [facility]/ZIP Co de Phone Number [facility] [place] [address] * Basic Metabolic Panel (non-fasting) (05/25/2016 4:47 AM EST) [facility] Glucose 159 65 - 199 mg/dL [facility] Comment:Diabetes: >=200 mg/d L plus symptoms Blood Urea Nitrogen 10 10 - 20 mg/dL [facility] Creatinine 0.98 0.80 - 1.50 mg/dL [facility] Comment: Please note that the pediatric reference intervals supplied above were not validated at [facility]. Results from pediatric patients should be interpreted in conjunction to the patient's age, height and muscle mass. Sodium 138 135 - 145 mmol/L [facility] Potassium 3.5 3.5 - 5.0 mmol/L [facility] Comment: Please note: ??Patients with WBC >100,000 may have falsely elevated Potassium levels. ??For accurate Potassium quantification in these patients send serum separator tube (gold top) for subsequent determinations. ??Contact the Clinical Chemistry Laboratory if there are any questions. Chloride 98 98 - 107 mmol/L [facility] Carbon Dioxide 27 22 - 31 mmol/L [facility] Anion Gap 13 5 - 15 mmol/L [facility] Calcium 8.7 8.5 - 10.5 mg/dL [facility] Est Glomerular Filtration Rate >60 >=60 [facility] Comment: This [...] the following links into your internet browser. [email or web address] Blood specimen (specimen) 05/25/2016 4:47 AM EST 05/25/2016 4:59 AM EST Narrative Resulting Agency Comment Spec In Lab Que Amaro MD CHEMISTRY ROCHELLE JENNINGS [facility] Organization Address City/State/ZIP Co de Phone Number [facility] [place] [address] * (ABNORMAL) Differential, Automated (05/25/2016 4:47 AM EST) Neutrophil % 83.2 % [facility] Neutrophil Absolute 8.21(H) 1.70 - 6.10 x10(3)/[facility] LABORATORY Lymph % 9.3 % [facility] Lymphocytes Abs 0.9 0.9 - 3.2 x10(3)/[facility] LABORATORY Monocyte % 5.4 % [facility] Monocyte Abs 0.5 0.3 - 0.9 x10(3)/[facility] LABORATORY Eos % 1.2 % [facility] Eosinophils Abs 0.1 0.0 - 0.4 x10(3)/[facility] LABORATORY Basophil % 0.4 % [facility] Baso Absolute 0.0 0.0 - 0.1 x10(3)/[facility] LABORATORY Immature Gran % 0.50 % [facility] Comment: Immature granulocytes(IG's)percentage and absolute count will include metamyelocytes, myelocytes, and promyelocytes. Blood smears from CBCs yielding IG's will be scanned manually for concordance. If this scan disagrees with the automated IG or if promyelocytes are noted, a manual differential will be performed. Immature Gran Absolute 0.05(H) 0.00 - 0.04 x10(3)/[facility] LABORATORY Blood specimen (specimen) 05/25/2016 4:47 AM EST 05/25/2016 4:59 AM EST Narrative Resulting Agency Comment Spec In Lab Que Amaro MD HEMATOLOGY ORD ERABLES [facility] [place] [place] [address] * (ABNORMAL) Hemogram (05/25/2016 4:47 AM EST) White Blood Cell 9.9(H) 4.0 - 9.5 x10(3)/[facility] LABORATORY Red Blood Cell 4.35(L) 4.58 - 5.54 x10(6)/mc L [facility] Hemoglobin 14.2 13.7 - 16.5 gm/dL [facility] Hematocrit 40.3(L) 40.5 - 48.5 % [facility] Mean Cell Volume 92.6 82.9 - 93.1 fL [facility] Mean Cell Hemoglobin 32.6(H) 27.5 - 32.1 pg [facility] Mean Cell Hemoglobin Concentration 35.2 32.0 - 35.7 gm/dL [facility] Platelet 247 145 - 357 x10(3)/[facility] LABORATORY RDW Standard Deviation 42.3 36.0 - 45.0 [facility] LABORATORY RDW coefficient of variation 12.5 11.4 - 13.8 % [facility] Mean Platelet Volume 8.7 7.6 - 12.9 fL [facility] NRBC% auto 0.0 % [facility] NRBC Absolute 0.000 0.000 - 0.000 x10(3)/[facility]ORAT[facility] Blood specimen (specimen) 05/25/2016 4:47 AM EST 05/25/2016 4:59 AM EST Narrative Resulting Agency Comment Spec In Lab Que Amaro MD HEMATOLOGY ORD ERABLES Performing Organization Address City/State/[facility] Co de Phone Number [facility] [place] [address] * (ABNORMAL) Differential, Automated (05/24/2016 4:45 AM EST) Neutrophil % 75.5 % [facility] Neutrophil Absolute 6.34(H) 1.70 - 6.10 x10(3)/ L [facility] Lymph % 14.6 % [facility] Lymphocytes Abs 1.2 0.9 - 3.2 x10(3)/[facility] LABORATORY Monocyte % 6.0 % [facility] Monocyte Abs 0.5 0.3 - 0.9 x10(3)/[facility] LABORATORY Eos % 2.9 % [facility] Eosinophils Abs 0.2 0.0 - 0.4 x10(3)/[facility] LABORATORY Basophil % 0.6 % [facility] Baso Absolute 0.0 0.0 - 0.1 x10(3)/[facility] [facility] Immature Gran % 0.40 % [facility] Comment: Immature granulocytes(IG's)percentage and absolute count will include metamyelocytes, myelocytes, and promyelocytes. Blood smears from CBCs yielding IG's will be scanned manually for concordance. If this scan disagrees with the automated IG or if promyelocytes are noted, a manual differential will be performed. Immature Gran Absolute 0.03 0.00 - 0.04 x10(3)/[facility] LABORATORY Blood specimen (specimen) 05/24/2016 4:45 AM EST 05/24/2016 5:06 AM EST Narrative Resulting Agency Comment Spec In Lab Que Amaro MD HEMATOLOGY ORD ERABLES [facility] [place] [place] [address] * (ABNORMAL) Hemogram (05/24/2016 4:45 AM EST) White Blood Cell 8.4 4.0 - 9.5 x10(3)/[facility] LABORATORY Red Blood Cell 3.96(L) 4.58 - 5.54 x10(6)/[facility] LABORATORY Hemoglobin 12.7(L) 13.7 - 16.5 gm/dL [facility] Hematocrit 36.6(L) 40.5 - 48.5 % [facility] Mean Cell Volume 92.4 82.9 - 93.1 fL [facility] Mean Cell Hemoglobin 32.1 27.5 - 32.1 pg [facility] Mean Cell Hemoglobin Concentration 34.7 32.0 - 35.7 gm/dL [facility] Platelet 211 145 - 357 x10(3)/mc L [facility] RDW Standard Deviation 42.5 36.0 - 45.0 fL [facility] RDW coefficient of variation 12.5 11.4 - 13.8 % [facility] Mean Platelet Volume 8.9 7.6 - 12.9 fL [facility] NRBC% auto 0.0 % [facility] NRBC Absolute 0.000 0.000 - 0.000 x10(3)/mc L [facility] Blood specimen (specimen) 05/24/2016 4:45 AM EST 05/24/2016 5:06 AM EST Narrative Resulting Agency Comment Spec In Lab Que Amaro MD HEMATOLOGY ORD ERABLES [facility] [place] [place] [address] * (ABNORMAL) Magnesium (05/24/2016 4:45 AM EST) Magnesium 0.59(L) 0.69 - 1.07 mmol/L [facility] Blood specimen (specimen) 05/24/2016 4:45 AM EST 05/24/2016 5:06 AM EST Narrative Resulting Agency Comment Spec In Lab Que Amaro MD CHEMISTRY ORDBhargav JENNINGS [facility] [place] [place] [address] * Phosphorus (05/24/2016 4:45 AM EST) Phosphorus 2.6 2.5 - 4.5 mg/dL [facility] Blood specimen (specimen) 05/24/2016 4:45 AM EST 05/24/2016 5:06 AM EST Narrative Resulting Agency Comment Spec In Lab Que Amaro MD CHEMISTRY ROCHELLE JENNINGS [facility] [place] [place] [address] * Basic Metabolic Panel (non-fasting) (05/24/2016 4:45 AM EST) Glucose 128 65 - 199 mg/dL [facility] Comment:Diabetes: >=200 mg/d L plus symptoms Blood Urea Nitrogen 10 10 - 20 mg/dL [facility] Creatinine 1.04 0.80 - 1.50 mg/dL [facility] Comment: Please note that the pediatric reference intervals supplied above were not validated at [facility]. Results from pediatric patients should be interpreted in conjunction to the patient's age, height and muscle mass. Sodium 139 135 - 145 mmol/L [facility] Potassium 3.6 3.5 - 5.0 mmol/L [facility] Comment: Please note: ??Patients with WBC >100,000 may have falsely elevated Potassium levels. ??For accurate Potassium quantification in these patients send serum separator tube (gold top) for subsequent determinations. ??Contact the Clinical Chemistry Laboratory if there are any questions. Chloride 101 98 - 107 mmol/L [facility] Carbon Dioxide 25 22 - 31 mmol/L [facility] Anion Gap 13 5 - 15 mmol/L [facility] Calcium 8.5 8.5 - 10.5 mg/dL [facility] Est Glomerular Filtration Rate >60 >=60 [facility] Comment: This [...] the following links into your internet browser. [email or web address] Blood specimen (specimen) 05/24/2016 4:45 AM EST 05/24/2016 5:06 AM EST Narrative Resulting Agency Comment Spec In Lab Que Amaro MD CHEMISTRY ORDE DICK Performing Organization Address [facility] Co de Phone Number [facility] [place] [place] [address] * Tacrolimus level (05/23/2016 7:50 AM EST) Pathologist [facility] Tacrolimus 5.4 ng/mL [facility] Comment: Trough therapeutic: ??5-15 ng/mL Performed by ultra-performance liquid chromatography tandem mass spectrometry (UPLCMS/MS). Blood specimen (specimen) 05/23/2016 7:50 AM EST 05/23/2016 11:06 AM EST Narrative Resulting Agency Comment Spec In Lab Que Amaro MD CHEMISTRY ORDBhargav JENNINGS Performing Organization Address [facility] Co de Phone Number [facility] [place] [address] * (ABNORMAL) Differential, Automated (05/23/2016 5:43 AM EST) Pathologist [facility] Neutrophil % 72.3 % [facility] Neutrophil Absolute 7.21(H) 1.70 - 6.10 x10(3)/mc L [facility] Lymph % 20.0 % [facility] Lymphocytes Abs 2.0 0.9 - 3.2 x10(3)/mc L [facility] Monocyte % 5.4 % [facility] Monocyte Abs 0.5 0.3 - 0.9 x10(3)/mc L [facility] Eos % 1.2 % [facility] Eosinophils Abs 0.1 0.0 - 0.4 x10(3)/mc L [facility] Basophil % 0.6 % [facility] Baso Absolute 0.1 0.0 - 0.1 x10(3)/mc L [facility] Immature Gran % 0.50 % [facility] Comment: Immature granulocytes(IG's)percentage and absolute count will include metamyelocytes, myelocytes, and promyelocytes. Blood smears from CBCs yielding IG's will be scanned manually for concordance. If this scan disagrees with the automated IG or if promyelocytes are noted, a manual differential will be performed. Immature Gran Absolute 0.05(H) 0.00 - 0.04 x10(3)/mc L [facility] Blood specimen (specimen) 05/23/2016 5:43 AM EST 05/23/2016 5:51 AM EST Narrative Resulting Agency Comment Spec In Lab Que Amaro MD HEMATOLOGY ORD ERABLES [facility] [place] [place] [address] * (ABNORMAL) Hemogram (05/23/2016 5:43 AM EST) White Blood Cell 10.0(H) 4.0 - 9.5 x10(3)/mc L [facility] Red Blood Cell 4.22(L) 4.58 - 5.54 x10(6)/mc L [facility] Hemoglobin 13.9 13.7 - 16.5 gm/dL [facility] Hematocrit 40.7 40.5 - 48.5 % [facility] Mean Cell Volume 96.4(H) 82.9 - 93.1 fL [facility] Mean Cell Hemoglobin 32.9(H) 27.5 - 32.1 pg [facility] Mean Cell Hemoglobin Concentration 34.2 32.0 - 35.7 gm/dL [facility] Platelet 211 145 - 357 x10(3)/mc L [facility] RDW Standard Deviation 44.1 36.0 - 45.0 fL [facility] RDW coefficient of variation 12.5 11.4 - 13.8 % [facility] Mean Platelet Volume 8.9 7.6 - 12.9 fL [facility] NRBC% auto 0.0 % [facility] NRBC Absolute 0.000 0.000 - 0.000 x10(3)/mc L [facility] Blood specimen (specimen) 05/23/2016 5:43 AM EST 05/23/2016 5:51 AM EST Narrative Resulting Agency Comment Spec In Lab Que Amaro MD HEMATOLOGY ORD ERABLES Performing Organization Address [facility]/ZIP Co de Phone Number [facility] [place] [address] * (ABNORMAL) Magnesium (05/23/2016 5:37 AM EST) Magnesium 0.55(L) 0.69 - 1.07 mmol/L [facility] Blood specimen (specimen) 05/23/2016 5:37 AM EST 05/23/2016 5:51 AM EST Narrative Resulting Agency Comment Spec In Lab Que Amaro MD CHEMISTRY ORDBhargav JENNINGS Performing Organization Address [facility] Co de Phone Number [facility] [place] [address] * (ABNORMAL) Phosphorus (05/23/2016 5:37 AM EST) Phosphorus 2.2(L) 2.5 - 4.5 mg/dL [facility] Blood specimen (specimen) 05/23/2016 5:37 AM EST 05/23/2016 5:51 AM EST Narrative Resulting Agency Comment Spec In Lab Que Amaro MD CHEMISTRY ROCHELLE JENNINGS Performing Organization Address City/[facility] Co de Phone Number [facility] [place] [address] * (ABNORMAL) Basic Metabolic Panel (non-fasting) (05/23/2016 5:37 AM EST) Glucose 136 65 - 199 mg/dL [facility] Comment:Diabetes: >=200 mg/d L plus symptoms Blood Urea Nitrogen 14 10 - 20 mg/dL [facility] Creatinine 1.24 0.80 - 1.50 mg/dL [facility] Comment: Please note that the pediatric reference intervals supplied above were not validated at [facility]. Results from pediatric patients should be interpreted in conjunction to the patient's age, height and muscle mass. Sodium 140 135 - 145 mmol/L [facility] Potassium 3.7 3.5 - 5.0 mmol/L [facility] Comment: Please note: ??Patients with WBC >100,000 may have falsely elevated Potassium levels. ??For accurate Potassium quantification in these patients send serum separator tube (gold top) for subsequent determinations. ??Contact the Clinical Chemistry Laboratory if there are any questions. Chloride 101 98 - 107 mmol/L [facility] Carbon Dioxide 25 22 - 31 mmol/L [facility] Anion Gap 14 5 - 15 mmol/L [facility] Calcium 8.9 8.5 - 10.5 mg/dL [facility] Est Glomerular Filtration Rate 58(L) [...] the following links into your internet browser. [email or web address] Blood specimen (specimen) 05/23/2016 5:37 AM EST 05/23/2016 5:51 AM EST Narrative Resulting Agency Comment Spec In Lab Que Amaro MD CHEMISTRY ROCHELLE JENNINGS [facility] [place] [place] [address] * Vancomycin, trough (05/22/2016 7:29 AM EST) Pathologist [facility] Vancomycin, Trough 17.4 mg/L [facility] Comment: Therapeutic range for complicated [...] ROCHELLE JENNINGS Performing Organization Address [facility] Co de Phone Number [facility] [place] [address] * (ABNORMAL) Differential, Automated (05/22/2016 7:29 AM EST) [facility] Neutrophil % 81.7 % [facility] Neutrophil Absolute 8.59(H) 1.70 - 6.10 x10(3)/mc L [facility] Lymph % 11.3 % [facility] Lymphocytes Abs 1.2 0.9 - 3.2 x10(3)/mc L [facility] Monocyte % 6.3 % [facility] Monocyte Abs 0.7 0.3 - 0.9 x10(3)/mc L [facility] Eos % 0.1 % [facility] Eosinophils Abs 0.0 0.0 - 0.4 x10(3)/mc L [facility] Basophil % 0.2 % [facility] Baso Absolute 0.0 0.0 - 0.1 x10(3)/mc L [facility] Immature Gran % 0.40 % [facility] Comment: Immature granulocytes(IG's)percentage and absolute count will include metamyelocytes, myelocytes, and promyelocytes. Blood smears from CBCs yielding IG's will be scanned manually for concordance. If this scan disagrees with the automated IG or if promyelocytes are noted, a manual differential will be performed. Immature Gran Absolute 0.04 0.00 - 0.04 x10(3)/[facility] LABORATORY Blood specimen (specimen) 05/22/2016 7:29 AM EST 05/22/2016 8:02 AM EST Narrative Resulting Agency Comment Spec In Lab Que Amaro MD HEMATOLOGY ORD ERABLES [facility] [place] [place] [address] * (ABNORMAL) Hemogram (05/22/2016 7:29 AM EST) White Blood Cell 10.5(H) 4.0 - 9.5 x10(3)/[facility] LABORATORY Red Blood Cell 3.92(L) 4.58 - 5.54 x10(6)/[facility] LABORATORY Hemoglobin 12.8(L) 13.7 - 16.5 gm/dL [facility] Hematocrit 36.7(L) 40.5 - 48.5 % [facility] Mean Cell Volume 93.6(H) 82.9 - 93.1 fL [facility] Mean Cell Hemoglobin 32.7(H) 27.5 - 32.1 pg [facility] Mean Cell Hemoglobin Concentration 34.9 32.0 - 35.7 gm/dL [facility] Platelet 210 145 - 357 x10(3)/ L [facility] RDW Standard Deviation 43.1 36.0 - 45.0 fL [facility] RDW coefficient of variation 12.5 11.4 - 13.8 % [facility] Mean Platelet Volume 8.9 7.6 - 12.9 fL [facility] NRBC% auto 0.0 % [facility] NRBC Absolute 0.000 0.000 - 0.000 x10(3)/mc L [facility] Blood specimen (specimen) 05/22/2016 7:29 AM EST 05/22/2016 8:02 AM EST Narrative Resulting Agency Comment Spec In Lab Que Amaro MD HEMATOLOGY ORD ERABLES Performing Organization Address City/[facility]/ZIP Co de Phone Number [facility] [place] [place] [address] * (ABNORMAL) Magnesium (05/22/2016 7:29 AM EST) Magnesium 0.65(L) 0.69 - 1.07 mmol/L [facility] Blood specimen (specimen) 05/22/2016 7:29 AM EST 05/22/2016 8:02 AM EST Narrative Resulting Agency Comment Spec In Lab Que Amaro MD CHEMISTRY ORDBhargav JENNINGS Performing Organization Address [facility] Co de Phone Number [facility] [place] [place] [address] * Phosphorus (05/22/2016 7:29 AM EST) Phosphorus 2.6 2.5 - 4.5 mg/dL [facility] Blood specimen (specimen) 05/22/2016 7:29 AM EST 05/22/2016 8:02 AM EST Narrative Resulting Agency Comment Spec In Lab Que Amaro MD CHEMISTRY ORDBhargav JENNINGS Performing Organization Address [facility] Co de Phone Number [facility] [place] [place] [address] * (ABNORMAL) Basic Metabolic Panel (non-fasting) (05/22/2016 7:29 AM EST) Glucose 159 65 - 199 mg/dL [facility] Comment:Diabetes: >=200 mg/d L plus symptoms Blood Urea Nitrogen 19 10 - 20 mg/dL [facility] Creatinine 1.37 0.80 - 1.50 mg/dL [facility] Comment: Please note that the pediatric reference intervals supplied above were not validated at [facility]. Results from pediatric patients should be interpreted in conjunction to the patient's age, height and muscle mass. Sodium 137 135 - 145 mmol/L [facility] Potassium 4.0 3.5 - 5.0 mmol/L [facility] Comment: Please note: ??Patients with WBC >100,000 may have falsely elevated Potassium levels. ??For accurate Potassium quantification in these patients send serum separator tube (gold top) for subsequent determinations. ??Contact the Clinical Chemistry Laboratory if there are any questions. Chloride 101 98 - 107 mmol/L [facility] Carbon Dioxide 22 22 - 31 mmol/L [facility] Anion Gap 14 5 - 15 mmol/L [facility] Calcium 8.9 8.5 - 10.5 mg/dL [facility] Est Glomerular Filtration Rate 52(L) [...] the following links into your internet browser. [email or web address] Blood specimen (specimen) 05/22/2016 7:29 AM EST 05/22/2016 8:02 AM EST Narrative Resulting Agency Comment Spec In Lab Que Amaro MD CHEMISTRY ROCHELLE JENNINGS [facility] [place] [place] [address] * (ABNORMAL) Urinalysis with reflex Culture (05/21/2016 10:52 AM EST) Glucose, Urine Dipstick Negative Negative mg/dL [facility] Protein, Urine Dipstick 100(A) Negative mg/dL [facility] Bilirubin, Urine [...] 8.0 [facility] Blood, Urine Dipstick Large(A) Negative mg/dL [facility] Ketone, Urine Dipstick Negative Negative mg/dL [facility] Nitrite, Urine Dipstick Negative Negative [facility] Leukocytes, Urine Dipstick Large(A) Negative [facility] Appearance, Urine Dipstick Clear Clear [facility] Specific [place] Urine Automated 1.021 1.002 - 1.030 [facility] Color, Urine Dipstick Yellow Yellow [facility] RBC, Urine 33(H) 0 - 3 /HPF [facility] WBC, Urine 25(H) 0 - 3 /HPF [facility] Bacteria, Urine Rare(A) None /HPF [facility] Squamous Epithelial Cells, Urine <1 <=4 /HPF [facility] Reflex to Culture Dup Culture [facility] Urine specimen obtained by clean catch procedure (specimen) 05/21/2016 10:52 AM EST 05/21/2016 10:59 AM EST Narrative Resulting Agency Comment Spec In Lab uQe Amaro MD URINE ORDERABL ES [facility] [place] [address] * Urine culture Nephrostomy Urine (05/21/2016 10:51 AM EST) Urine Culture No growth (Less than 1,000 cfu/ml). [facility] Urine specimen obtained by clean catch procedure (specimen) 05/21/2016 10:51 AM EST 05/22/2016 4:32 PM EST Narrative Resulting Agency Comment Spec In Lab Que Amaro MD MICROBIOLOGY - GENERAL ORDERABLES Performing Organization Address City/[facility]/ZIP Co de Phone Number [facility] [place] [place] [address] * Tacrolimus level (05/21/2016 7:52 AM EST) Tacrolimus 6.6 ng/mL [facility] Comment: Trough therapeutic: ??5-15 ng/mL Performed by ultra-performance liquid chromatography tandem mass spectrometry (UPLCMS/MS). Blood specimen (specimen) 05/21/2016 7:52 AM EST 05/21/2016 10:42 AM EST Narrative Resulting Agency Comment Spec In Lab Que Amaro MD CHEMISTRY ORDE RABLES Performing Organization Address [facility]/ZIP Co de Phone Number [facility] [place] [place] [address] * XR Abdomen 1 view (Generic) (05/21/2016 [...] 5:53 AM EST) Neutrophil % 90.9 % [facility] Neutrophil Absolute 10.31(H) 1.70 - 6.10 x10(3)/mc L [facility] Lymph % 4.5 % [facility] Lymphocytes Abs 0.5(L) 0.9 - 3.2 x10(3)/mc L [facility] Monocyte % 4.0 % [facility] Monocyte Abs 0.4 0.3 - 0.9 x10(3)/mc L [facility] Eos % 0.0 % [facility] Eosinophils Abs 0.0 0.0 - 0.4 x10(3)/mc L [facility] Basophil % 0.2 % [facility] Baso Absolute 0.0 0.0 - 0.1 x10(3)/mc L [facility] Immature Gran % 0.40 % [facility] Comment: Immature granulocytes(IG's)percentage and absolute count will include metamyelocytes, myelocytes, and promyelocytes. Blood smears from CBCs yielding IG's will be scanned manually for concordance. If this scan disagrees with the automated IG or if promyelocytes are noted, a manual differential will be performed. Immature Gran Absolute 0.04 0.00 - 0.04 x10(3)/mc L [facility] Blood specimen (specimen) 05/21/2016 5:53 AM EST 05/21/2016 6:15 AM EST Narrative Resulting Agency Comment Spec In Lab Que Amaro MD HEMATOLOGY ORD ERABLES [facility] [place] [place] [address] * (ABNORMAL) Hemogram (05/21/2016 5:53 AM EST) White Blood Cell 11.3(H) 4.0 - 9.5 x10(3)/ L [facility] Red Blood Cell 4.15(L) 4.58 - 5.54 x10(6)/mc L [facility] Hemoglobin 13.5(L) 13.7 - 16.5 gm/dL [facility] Hematocrit 37.8(L) 40.5 - 48.5 % [facility] Mean Cell Volume 91.1 82.9 - 93.1 fL [facility] Mean Cell Hemoglobin 32.5(H) 27.5 - 32.1 pg [facility] Mean Cell Hemoglobin Concentration 35.7 32.0 - 35.7 gm/dL [facility] Platelet 222 145 - 357 x10(3)/mc L [facility] RDW Standard Deviation 40.7 36.0 - 45.0 fL [facility] RDW coefficient of variation 12.2 11.4 - 13.8 % [facility] Mean Platelet Volume 8.8 7.6 - 12.9 fL [facility] NRBC% auto 0.0 % [facility] NRBC Absolute 0.000 0.000 - 0.000 x10(3)/mc L [facility] Blood specimen (specimen) 05/21/2016 5:53 AM EST 05/21/2016 6:15 AM EST Narrative Resulting Agency Comment Spec In Lab Que Amaro MD HEMATOLOGY ORD ERABLES Performing Organization Address [facility] Co de Phone Number [facility] [place] [address] * (ABNORMAL) Magnesium (05/21/2016 5:53 AM EST) Magnesium 0.51(L) 0.69 - 1.07 mmol/L [facility] Blood specimen (specimen) 05/21/2016 5:53 AM EST 05/21/2016 6:15 AM EST Narrative Resulting Agency Comment Spec In Lab Que Amaro MD CHEMISTRY ORDBhargav JENNINGS Performing Organization Address [facility] Phone Number [facility] [place] [address] * (ABNORMAL) Phosphorus (05/21/2016 5:53 AM EST) Phosphorus 2.4(L) 2.5 - 4.5 mg/dL [facility] Blood specimen (specimen) 05/21/2016 5:53 AM EST 05/21/2016 6:15 AM EST Narrative Resulting Agency Comment Spec In Lab Que Amaro MD CHEMISTRY ORDBhargav JENNINGS Performing Organization Address [facility] Co de Phone Number [facility] [place] [address] * (ABNORMAL) Basic Metabolic Panel (non-fasting) (05/21/2016 5:53 AM EST) Glucose 269(H) 65 - 199 mg/dL [facility] Comment:Diabetes: >=200 mg/d L plus symptoms Blood Urea Nitrogen 17 10 - 20 mg/dL [facility] Creatinine 1.27 0.80 - 1.50 mg/dL [facility] Comment: Please note that the pediatric reference intervals supplied above were not validated at [facility]. Results from pediatric patients should be interpreted in conjunction to the patient's age, height and muscle mass. Sodium 136 135 - 145 mmol/L [facility] Potassium 4.5 3.5 - 5.0 mmol/L [facility] Comment: Please note: ??Patients with WBC >100,000 may have falsely elevated Potassium levels. ??For accurate Potassium quantification in these patients send serum separator tube (gold top) for subsequent determinations. ??Contact the Clinical Chemistry Laboratory if there are any questions. Chloride 101 98 - 107 mmol/L [facility] Carbon Dioxide 18(L) 22 - 31 mmol/L [facility] Anion Gap 17(H) 5 - 15 mmol/L [facility] Calcium 8.4(L) 8.5 - 10.5 mg/dL [facility] Est Glomerular Filtration Rate 57(L) >=60 [facility] Comment: This [...] the following links into your internet browser. [email or web address] Blood specimen (specimen) 05/21/2016 5:53 AM EST 05/21/2016 6:15 AM EST Narrative Resulting Agency Comment Spec In Lab Que Amaro MD CHEMISTRY ROCHELLE JENNINGS [facility] [place] [place] [address] * US Renal Transplant Left (05/20/2016 10:18 [...] at 05/27/2016 11:38 AM Que Amaro MD IM US GEN ORD ERABLES * (ABNORMAL) Differential, Automated (05/20/2016 10:15 PM EST) Neutrophil % 92.5 % [facility] Neutrophil Absolute 9.41(H) 1.70 - 6.10 x10(3)/mc L [facility] Lymph % 4.3 % [facility] Lymphocytes Abs 0.4(L) 0.9 - 3.2 x10(3)/mc L [facility] Monocyte % 2.3 % [facility] Monocyte Abs 0.2(L) 0.3 - 0.9 x10(3)/mc L [facility] Eos % 0.1 % [facility] Eosinophils Abs 0.0 0.0 - 0.4 x10(3)/[facility]OR[facility] Basophil % 0.3 % [facility] Baso Absolute 0.0 0.0 - 0.1 x10(3)/[facility]ORATORY Immature Gran % 0.50 % [facility] Comment: Immature granulocytes(IG's)percentage and absolute count will include metamyelocytes, myelocytes, and promyelocytes. Blood smears from CBCs yielding IG's will be scanned manually for concordance. If this scan disagrees with the automated IG or if promyelocytes are noted, a manual differential will be performed. Immature Gran Absolute 0.05(H) 0.00 - 0.04 x10(3)/[facility] Blood specimen (specimen) 05/20/2016 10:15 PM EST 05/20/2016 10:25 PM EST Narrative Resulting Agency Comment Spec In Lab Que Amaro MD HEMATOLOGY ORD ERABLES [facility] [place] [place] [address] * (ABNORMAL) Hemogram (05/20/2016 10:15 PM EST) White Blood Cell 10.2(H) 4.0 - 9.5 x10(3)/[facility] LABORATORY Red Blood Cell 4.36(L) 4.58 - 5.54 x10(6)/ L [facility] Hemoglobin 13.9 13.7 - 16.5 gm/dL [facility] Hematocrit 40.6 40.5 - 48.5 % [facility] Mean Cell Volume 93.1 82.9 - 93.1 fL [facility] Mean Cell Hemoglobin 31.9 27.5 - 32.1 pg [facility] Mean Cell Hemoglobin Concentration 34.2 32.0 - 35.7 gm/dL [facility] Platelet 214 145 - 357 x10(3)/mc L [facility] RDW Standard Deviation 42.1 36.0 - 45.0 fL [facility] RDW coefficient of variation 12.2 11.4 - 13.8 % [facility] Mean Platelet Volume 8.7 7.6 - 12.9 fL [facility] NRBC% auto 0.0 % [facility] NRBC Absolute 0.000 0.000 - 0.000 x10(3)/mc L [facility] Blood specimen (specimen) 05/20/2016 10:15 PM EST 05/20/2016 10:25 PM EST Narrative Resulting Agency Comment Spec In Lab Que Amaro MD HEMATOLOGY ORD ERABLES Performing Organization Address [facility]/ZIP Co de Phone Number [facility] [place] [address] * Lactate, whole blood, send to lab (05/20/2016 10:15 PM EST) Lactate WB 1.4 0.5 - 2.2 mmol/L [facility] Blood specimen (specimen) 05/20/2016 10:15 PM EST 05/20/2016 10:25 PM EST Narrative Resulting Agency Comment Spec In Lab Que Amaro MD CHEMISTRY ORDBhargav JENNINGS [facility] [place] [address] * Phosphorus (05/20/2016 10:15 PM EST) Phosphorus 3.0 2.5 - 4.5 mg/dL [facility] Blood specimen (specimen) 05/20/2016 10:15 PM EST 05/20/2016 10:25 PM EST Narrative Resulting Agency Comment Spec In Lab Que Amaro MD CHEMISTRY ROCHELLE JENNINGS Performing Organization Address [facility] Co de Phone Number [facility] [place] [address] * (ABNORMAL) Magnesium (05/20/2016 10:15 PM EST) Pathologist [facility] Magnesium 0.51(L) 0.69 - 1.07 mmol/L [facility] Blood specimen (specimen) 05/20/2016 10:15 PM EST 05/20/2016 10:25 PM EST Narrative Resulting Agency Comment Spec In Lab Que Amaro MD CHEMISTRY ROCHELLE JENNINGS Performing Organization Address [facility] de Phone Number [facility] [place] [address] * (ABNORMAL) BMP w/fasting Glucose (05/20/2016 10:15 PM EST) Pathologist [facility] Glucose Fasting 254(H) 65 - 99 mg/dL [facility] Comment: ?Fasting* Glucose Interpretive Criteria [...] of Diabetes Mellitus, Position Statement from the [place] [employer]. ??Diabetes Care, Volume 33, Supplement 1, Jul 2009 Blood Urea Nitrogen 16 10 - 20 mg/dL [facility] Creatinine 1.21 0.80 - 1.50 mg/dL [facility] Comment: Please note that the pediatric reference intervals supplied above were not validated at [facility]. Results from pediatric patients should be interpreted in conjunction to the patient's age, height and muscle mass. Sodium 138 135 - 145 mmol/L [facility] Potassium 4.3 3.5 - 5.0 mmol/L [facility] Comment: Please note: ??Patients with WBC >100,000 may have falsely elevated Potassium levels. ??For accurate Potassium quantification in these patients send serum separator tube (gold top) for subsequent determinations. ??Contact the Clinical Chemistry Laboratory if there are any questions. Chloride 104 98 - 107 mmol/L [facility] Carbon Dioxide 20(L) 22 - 31 mmol/L [facility] Anion Gap 14 5 - 15 mmol/L [facility] Calcium 8.4(L) 8.5 - 10.5 mg/dL [facility] Est Glomerular Filtration Rate 60 >=60 [facility] Comment: This [...] the following links into your internet browser. [email or web address] Blood specimen (specimen) 05/20/2016 10:15 PM EST 05/20/2016 10:25 PM EST Narrative Resulting Agency Comment Spec In Lab Que Amaro MD CHEMISTRY ROCHELLE JENNINGS [facility] Organization Address City/State/ZIP Co de Phone Number [facility] [place] [address] * Specimen to Pathology (surgical or derm) (05/20/2016 7:38 PM EST) AP Specimen 05/20/2016 7:38 PM EST 05/20/2016 7:38 PM EST Narrative [facility] - 05/20/2016 7:38 PM EST Specimen requisition ordered. ??Separate Pathology report to follow Que Amaro MD PATHOLOGY/CYTO LOGY ORDERABLES Performing Organization Address [facility] Co de Phone Number [facility] [place] [address] * (ABNORMAL) POCT Glucose (05/20/2016 7:32 PM EST) Glucose, POC 204(H) 65 - 199 mg/dL [facility] Comment: Supplemental ranges: <140 mg/dL before meals <180 mg/dL all other times of the day Blood specimen (specimen) 05/20/2016 7:32 PM EST 05/20/2016 7:32 PM EST Que Amaro MD POINT OF CARE TEST ORDERABLES Performing Organization Address [facility] de Phone Number [facility] [place] [address] * (ABNORMAL) POCT Glucose (05/20/2016 7:30 PM EST) Glucose, POC 220(H) 65 - 199 mg/dL [facility] Comment: Supplemental ranges: <140 mg/dL before meals <180 mg/dL all other times of the day Blood specimen (specimen) 05/20/2016 7:30 PM EST 05/20/2016 7:30 PM EST Que Amaro MD POINT OF CARE TEST ORDERABLES Performing Organization Address [facility] Co de Phone Number [facility] [place] [address] * Specimen to Pathology (surgical or derm) (05/20/2016 7:25 PM EST) AP Specimen 05/20/2016 7:25 PM EST 05/20/2016 7:25 PM EST Narrative [facility] - 05/20/2016 7:25 PM EST Specimen requisition ordered. ??Separate Pathology report to follow Que Amaro MD PATHOLOGY/CYTO LOGY ORDERABLES Performing Organization Address City/[facility] Co de Phone Number [facility] [place] [address] * Surgical Pathology Report (05/20/2016 7:23 PM EST) Final Diagnosis [id number] [facility]; A The signing pathologist has (i) examined the relevant preparation(s) for the specimen(s) and (ii) rendered or confirmed the diagnosis(es). . 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 ?2. No evidence of viral inclusions. B - [place] left ureter: ?1. Benign ureter. ?2. No [...] Left transplant kidney ureter B - [place] left ureter Clinical History: Left ureteral stricture [...] cross- sections. ??(R2) B - ??Labeled/Fixative: [place] left ureter, fresh. Quantity/Size: Single, 8.2 x 0.4 x 0.4 cm. Tissue Description: Unoriented segment of ureter. ??The wall averages 0.2 cm in thickness. there is a stellate lumen. ??The mucosa is glistening pink-oro. . SPECIMEN PROCESSING Sections/Processing: (1) Sections from the ends of the specimen; (2) additional central cross sections. ??(R2) ??ejr 05/23/2016 9:45 AM EST [facility] URETERIC STRUCTURE / Unknown 05/20/2016 7:23 PM EST 05/20/2016 7:23 PM EST URETERIC STRUCTURE / Unknown 05/20/2016 7:23 PM EST 05/20/2016 7:23 PM EST Que Amaro MD PATHOLOGY/CYTO LOGY ORDERABLES Performing Organization Address [facility]/ZIP Co de Phone Number [facility] [place] [address] * XR Fluoro No Rad <1Hr (05/20/2016 1:59 PM EST) Narrative RAD - 05/20/2016 1:59 PM EST This order does not need a radiologist interpretation. ?? Que Amaro MD IMG FLUORO ORD ERABLES Performing Organization Address City/[facility]/ZIP Co de Phone Number [place], [place] * Differential, Automated (05/20/2016 5:47 AM EST) Neutrophil % 72.4 % [facility] Neutrophil Absolute 5.83 1.70 - 6.10 x10(3)/mcL [facility] Lymph % 15.8 % [facility] Lymphocytes Abs 1.3 0.9 - 3.2 x10(3)/[facility] Monocyte % 6.1 % [facility] Monocyte Abs 0.5 0.3 - 0.9 x10(3)/[facility] Eos % 4.1 % [facility] Eosinophils Abs 0.3 0.0 - 0.4 x10(3)/[facility] Basophil % 1.1 % [facility] Baso Absolute 0.1 0.0 - 0.1 x10(3)/[facility] Immature Gran % 0.50 % [facility] Comment: Immature granulocytes(IG's)percentage and absolute count will include metamyelocytes, myelocytes, and promyelocytes. Blood smears from CBCs yielding IG's will be scanned manually for concordance. If this scan disagrees with the automated IG or if promyelocytes are noted, a manual differential will be performed. Immature Gran Absolute 0.04 0.00 - 0.04 x10(3)/[facility] Blood specimen (specimen) 05/20/2016 5:47 AM EST 05/20/2016 5:58 AM EST Narrative Resulting Agency Comment Spec In Lab Que Amaro MD HEMATOLOGY ORD ERABLES Performing Organization Address City/State/[facility] Co de Phone Number [facility] [place] [address] * (ABNORMAL) Hemogram (05/20/2016 5:47 AM EST) White Blood Cell 8.0 4.0 - 9.5 x10(3)/ L [facility] Red Blood Cell 4.41(L) 4.58 - 5.54 x10(6)/ L [facility] Hemoglobin 14.1 13.7 - 16.5 gm/dL [facility] Hematocrit 40.0(L) 40.5 - 48.5 % [facility] Mean Cell Volume 90.7 82.9 - 93.1 fL [facility] Mean Cell Hemoglobin 32.0 27.5 - 32.1 pg [facility] Mean Cell Hemoglobin Concentration 35.3 32.0 - 35.7 gm/dL [facility] Platelet 214 145 - 357 x10(3)/mc L [facility] RDW Standard Deviation 39.4 36.0 - 45.0 [facility] RDW coefficient of variation 11.9 11.4 - 13.8 % [facility] Mean Platelet Volume 8.6 7.6 - 12.9 fL [facility] NRBC% auto 0.0 % [facility] NRBC Absolute 0.000 0.000 - 0.000 x10(3)/mc L [facility] Blood specimen (specimen) 05/20/2016 5:47 AM EST 05/20/2016 5:58 AM EST Narrative Resulting Agency Comment Spec In Lab Que Amaro MD HEMATOLOGY ORD ERABLES [facility] [place] [address] * (ABNORMAL) Magnesium (05/20/2016 5:47 AM EST) Magnesium 0.55(L) 0.69 - 1.07 mmol/L [facility] Blood specimen (specimen) 05/20/2016 5:47 AM EST 05/20/2016 5:58 AM EST Narrative Resulting Agency Comment Spec In Lab Que Amaro MD CHEMISTRY ORDE DICK [facility] [place] [place] [address] * (ABNORMAL) Phosphorus (05/20/2016 5:47 AM EST) Phosphorus 2.4(L) 2.5 - 4.5 mg/dL [facility] Blood specimen (specimen) 05/20/2016 5:47 AM EST 05/20/2016 5:58 AM EST Narrative Resulting Agency Comment Spec In Lab Que Amaro MD CHEMISTRY ROCHELLE JENNINGS [facility] [place] [place] [address] * Basic Metabolic Panel (non-fasting) (05/20/2016 5:47 AM EST) Glucose 150 65 - 199 mg/dL [facility] Comment:Diabetes: >=200 mg/d L plus symptoms Blood Urea Nitrogen 12 10 - 20 mg/dL [facility] Creatinine 1.14 0.80 - 1.50 mg/dL [facility] Comment: Please note that the pediatric reference intervals supplied above were not validated at [facility]. Results from pediatric patients should be interpreted in conjunction to the patient's age, height and muscle mass. Sodium 138 135 - 145 mmol/L [facility] Potassium 3.5 3.5 - 5.0 mmol/L [facility] Comment: Please note: ??Patients with WBC >100,000 may have falsely elevated Potassium levels. ??For accurate Potassium quantification in these patients send serum separator tube (gold top) for subsequent determinations. ??Contact the Clinical Chemistry Laboratory if there are any questions. Chloride 100 98 - 107 mmol/L [facility] Carbon Dioxide 24 22 - 31 mmol/L [facility] Anion Gap 14 5 - 15 mmol/L [facility] Calcium 9.0 8.5 - 10.5 mg/dL [facility] Est Glomerular Filtration Rate >60 >=60 [facility] Comment: This [...] the following links into your internet browser. [email or web address] Blood specimen (specimen) 05/20/2016 5:47 AM EST 05/20/2016 5:58 AM EST Narrative Resulting Agency Comment Spec In Lab uQe JENNINGS Performing Organization Address [facility] de Phone Number [facility] [place] [address] * Tacrolimus level (05/19/2016 8:00 AM EST) Tacrolimus 8.1 ng/mL [facility] Comment: Trough therapeutic: ??5-15 ng/mL Performed by ultra-performance liquid chromatography tandem mass spectrometry (UPLCMS/MS). Blood specimen (specimen) 05/19/2016 8:00 AM EST 05/19/2016 10:28 AM EST Narrative Resulting Agency Comment Spec In Lab Que JENNINGS Performing Organization Address [facility] de Phone Number [facility] [place] [address] * Antibody screen (05/19/2016 4:17 AM EST) Ab Screen Interp Negative [facility] Expires at [id number] on: 05/22/2016 [facility] Blood specimen (specimen) 05/19/2016 4:17 AM EST 05/19/2016 4:33 AM EST Narrative Resulting Agency Comment Spec In Lab Que Amaro MD BLOOD BANK LAB ORDERABLES Performing Organization Address [facility] Co de Phone Number [facility] [place] [address] * ABO/Rh Typing (05/19/2016 4:17 AM EST) ABORH Type AB Pos [facility] Blood specimen (specimen) 05/19/2016 4:17 AM EST 05/19/2016 4:33 AM EST Narrative Resulting Agency Comment Spec In Lab Que Amaro MD BLOOD BANK LAB ORDERABLES Performing Organization Address [facility] de Phone Number [facility] [place] [address] * Prothrombin Time (05/19/2016 4:17 AM EST) Pathologist [facility] Prothrombin Time 13.3 12.0 - 15.0 sec [facility] Comment: An INR <2.0 indicates [...] International Normalization Ratio 1.0 0.9 - 1.1 [facility] Blood specimen (specimen) 05/19/2016 4:17 AM EST 05/19/2016 4:35 AM EST Narrative Resulting Agency Comment Spec In Lab Que Amaro MD HEMATOLOGY ORD ERABLES Performing Organization Address [facility] de Phone Number [facility] [place] [place] [address] * Differential, Automated (05/19/2016 4:17 AM EST) Pathologist [facility] Neutrophil % 69.8 % [facility] Neutrophil Absolute 5.19 1.70 - 6.10 x10(3)/[facility] Lymph % 18.5 % [facility] Lymphocytes Abs 1.4 0.9 - 3.2 x10(3)/[facility] Monocyte % 6.2 % [facility] Monocyte Abs 0.5 0.3 - 0.9 x10(3)/[facility] Eos % 3.9 % [facility] Eosinophils Abs 0.3 0.0 - 0.4 x10(3)/[facility] Basophil % 1.1 % [facility] Baso Absolute 0.1 0.0 - 0.1 x10(3)/[facility] Immature Gran % 0.50 % [facility] Comment: Immature granulocytes(IG's)percentage and absolute count will include metamyelocytes, myelocytes, and promyelocytes. Blood smears from CBCs yielding IG's will be scanned manually for concordance. If this scan disagrees with the automated IG or if promyelocytes are noted, a manual differential will be performed. Immature Gran Absolute 0.04 0.00 - 0.04 x10(3)/[facility] Blood specimen (specimen) 05/19/2016 4:17 AM EST 05/19/2016 4:35 AM EST Narrative Resulting Agency Comment Spec In Lab Que Amaro MD HEMATOLOGY ORD ERABLES [facility] [place] [address] * (ABNORMAL) Hemogram (05/19/2016 4:17 AM EST) White Blood Cell 7.4 4.0 - 9.5 x10(3)/mc L [facility] Red Blood Cell 4.43(L) 4.58 - 5.54 x10(6)/mc L [facility] Hemoglobin 14.2 13.7 - 16.5 gm/dL [facility] Hematocrit 40.2(L) 40.5 - 48.5 % [facility] Mean Cell Volume 90.7 82.9 - 93.1 fL [facility] Mean Cell Hemoglobin 32.1 27.5 - 32.1 pg [facility] Mean Cell Hemoglobin Concentration 35.3 32.0 - 35.7 gm/dL [facility] Platelet 192 145 - 357 x10(3)/mc L [facility] RDW Standard Deviation 39.8 36.0 - 45.0 [facility] RDW coefficient of variation 11.9 11.4 - 13.8 % [facility] Mean Platelet Volume 8.9 7.6 - 12.9 [facility] NRBC% auto 0.0 % [facility] NRBC Absolute 0.000 0.000 - 0.000 x10(3)/mc L [facility] Blood specimen (specimen) 05/19/2016 4:17 AM EST 05/19/2016 4:35 AM EST Narrative Resulting Agency Comment Spec In Lab Que Amaro MD HEMATOLOGY ORD ERABLES Performing Organization Address [facility] Co de Phone Number [facility] [place] [address] * (ABNORMAL) Magnesium (05/19/2016 4:17 AM EST) Magnesium 0.68(L) 0.69 - 1.07 mmol/L [facility] Blood specimen (specimen) 05/19/2016 4:17 AM EST 05/19/2016 4:35 AM EST Narrative Resulting Agency Comment Spec In Lab Que Amaro MD CHEMISTRY ORDBhargav JENNINGS Performing Organization Address [facility] de Phone Number [facility] [place] [place] [address] * (ABNORMAL) Phosphorus (05/19/2016 4:17 AM EST) Phosphorus 2.4(L) 2.5 - 4.5 mg/dL [facility] Blood specimen (specimen) 05/19/2016 4:17 AM EST 05/19/2016 4:35 AM EST Narrative Resulting Agency Comment Spec In Lab Que Amaro MD CHEMISTRY ORDBhargav JENNINGS Performing Organization Address [facility] Co de Phone Number [facility] [place] [address] * (ABNORMAL) Basic Metabolic Panel (non-fasting) (05/19/2016 4:17 AM EST) Glucose 166 65 - 199 mg/dL [facility] Comment:Diabetes: >=200 mg/d L plus symptoms Blood Urea Nitrogen 11 10 - 20 mg/dL [facility] Creatinine 1.09 0.80 - 1.50 mg/dL [facility] Comment: Please note that the pediatric reference intervals supplied above were not validated at [facility]. Results from pediatric patients should be interpreted in conjunction to the patient's age, height and muscle mass. Sodium 140 135 - 145 mmol/L [facility] Potassium 3.9 3.5 - 5.0 mmol/L [facility] Comment: Please note: ??Patients with WBC >100,000 may have falsely elevated Potassium levels. ??For accurate Potassium quantification in these patients send serum separator tube (gold top) for subsequent determinations. ??Contact the Clinical Chemistry Laboratory if there are any questions. Chloride 99 98 - 107 mmol/L [facility] Carbon Dioxide 25 22 - 31 mmol/L [facility] Anion Gap 16(H) 5 - 15 mmol/L [facility] Calcium 9.0 8.5 - 10.5 mg/dL [facility] Est Glomerular Filtration Rate >60 >=60 [facility] Comment: This [...] the following links into your internet browser. [email or web address] Blood specimen (specimen) 05/19/2016 4:17 AM EST 05/19/2016 4:35 AM EST Narrative Resulting Agency Comment Spec In Lab Que Amaro MD CHEMISTRY ORDE DICK Performing Organization Address City/[facility]/ZIP Co de Phone Number [facility] [place] [address] * Differential, Automated (05/18/2016 5:54 AM EST) Neutrophil % 69.2 % [facility] Neutrophil Absolute 5.48 1.70 - 6.10 x10(3)/[facility] LAB[facility] Lymph % 18.5 % [facility] Lymphocytes Abs 1.5 0.9 - 3.2 x10(3)/[facility] Monocyte % 6.6 % [facility] Monocyte Abs 0.5 0.3 - 0.9 x10(3)/[facility] Eos % 4.3 % [facility] Eosinophils Abs 0.3 0.0 - 0.4 x10(3)/[facility] Basophil % 1.1 % [facility] Baso Absolute 0.1 0.0 - 0.1 x10(3)/[facility] Immature Gran % 0.30 % [facility] Comment: Immature granulocytes(IG's)percentage and absolute count will include metamyelocytes, myelocytes, and promyelocytes. Blood smears from CBCs yielding IG's will be scanned manually for concordance. If this scan disagrees with the automated IG or if promyelocytes are noted, a manual differential will be performed. Immature Gran Absolute 0.02 0.00 - 0.04 x10(3)/[facility] Blood specimen (specimen) 05/18/2016 5:54 AM EST 05/18/2016 6:00 AM EST Narrative Resulting Agency Comment Spec In Lab Que Amaro MD HEMATOLOGY ORD MILAGROS Performing Organization Address City/[facility]/ZIP Co de Phone Number [facility] [place] [address] * (ABNORMAL) Hemogram (05/18/2016 5:54 AM EST) White Blood Cell 7.9 4.0 - 9.5 x10(3)/[facility] LABORATORY Red Blood Cell 4.51(L) 4.58 - 5.54 x10(6)/[facility] LABORATORY Hemoglobin 14.4 13.7 - 16.5 gm/dL [facility] Hematocrit 40.5 40.5 - 48.5 % [facility] Mean Cell Volume 89.8 82.9 - 93.1 fL [facility] Mean Cell Hemoglobin 31.9 27.5 - 32.1 pg [facility] Mean Cell Hemoglobin Concentration 35.6 32.0 - 35.7 gm/dL [facility] Platelet 205 145 - 357 x10(3)/[facility] LABORATORY RDW Standard Deviation 39.8 36.0 - 45.0 [facility] LABORATORY RDW coefficient of variation 12.1 11.4 - 13.8 % [facility] Mean Platelet Volume 8.7 7.6 - 12.9 [facility] LABORATORY NRBC% auto 0.0 % [facility]OR[facility] NRBC Absolute 0.000 0.000 - 0.000 x10(3)/[facility] LABORATORY Blood specimen (specimen) 05/18/2016 5:54 AM EST 05/18/2016 6:00 AM EST Narrative Resulting Agency Comment Spec In Lab Que Amaro MD HEMATOLOGY ORD ERABLES [facility] [place] [place] [address] * (ABNORMAL) Magnesium (05/18/2016 5:54 AM EST) Magnesium 0.68(L) 0.69 - 1.07 mmol/L [facility] Blood specimen (specimen) 05/18/2016 5:54 AM EST 05/18/2016 6:00 AM EST Narrative Resulting Agency Comment Spec In Lab Que Amaro MD CHEMISTRY ROCHELLE JENNINGS Performing Organization Address City/[facility] Co de Phone Number [facility] [place] [place] [address] * Phosphorus (05/18/2016 5:54 AM EST) Phosphorus 2.8 2.5 - 4.5 mg/dL [facility] Blood specimen (specimen) 05/18/2016 5:54 AM EST 05/18/2016 6:00 AM EST Narrative Resulting Agency Comment Spec In Lab Que Amaro MD CHEMISTRY ROCHELLE JENNINGS Performing Organization Address [facility] Co de Phone Number [facility] [place] [address] * Basic Metabolic Panel (non-fasting) (05/18/2016 5:54 AM EST) Glucose 168 65 - 199 mg/dL [facility] Comment:Diabetes: >=200 mg/d L plus symptoms Blood Urea Nitrogen 11 10 - 20 mg/dL [facility] Creatinine 1.15 0.80 - 1.50 mg/dL [facility] Comment: Please note that the pediatric reference intervals supplied above were not validated at [facility]. Results from pediatric patients should be interpreted in conjunction to the patient's age, height and muscle mass. Sodium 139 135 - 145 mmol/L [facility] Potassium 3.5 3.5 - 5.0 mmol/L [facility] Comment: Please note: ??Patients with WBC >100,000 may have falsely elevated Potassium levels. ??For accurate Potassium quantification in these patients send serum separator tube (gold top) for subsequent determinations. ??Contact the Clinical Chemistry Laboratory if there are any questions. Chloride 98 98 - 107 mmol/L [facility] Carbon Dioxide 27 22 - 31 mmol/L [facility] Anion Gap 14 5 - 15 mmol/L [facility] Calcium 9.1 8.5 - 10.5 mg/dL [facility] Est Glomerular Filtration Rate >60 >=60 [facility] Comment: This [...] the following links into your internet browser. [email or web address] Blood specimen (specimen) 05/18/2016 5:54 AM EST 05/18/2016 6:00 AM EST Narrative Resulting Agency Comment Spec In Lab Que Amaro MD CHEMISTRY ROCHELLE ClaimItLENORE Performing Organization Address [facility] Co de Phone Number [facility] [place] [address] * Vancomycin, trough (05/17/2016 5:35 AM EST) Pathologist [facility] Vancomycin, Trough 16.2 mg/L [facility] Comment: Therapeutic range for complicated [...] ROCHELLE JENNINGS Performing Organization Address [facility] [place] [address] * Differential, Automated (05/17/2016 5:35 AM EST) Pathologist [facility] Neutrophil % 64.3 % [facility] Neutrophil Absolute 4.39 1.70 - 6.10 x10(3)/[facility] LABORATORY Lymph % 20.2 % [facility] Lymphocytes Abs 1.4 0.9 - 3.2 x10(3)/[facility] LABORATORY Monocyte % 8.3 % [facility] Monocyte Abs 0.6 0.3 - 0.9 x10(3)/[facility] LABORATORY Eos % 5.7 % [facility] Eosinophils Abs 0.4 0.0 - 0.4 x10(3)/[facility] Basophil % 1.2 % [facility] Baso Absolute 0.1 0.0 - 0.1 x10(3)/[facility] Immature Gran % 0.30 % [facility] Comment: Immature granulocytes(IG's)percentage and absolute count will include metamyelocytes, myelocytes, and promyelocytes. Blood smears from CBCs yielding IG's will be scanned manually for concordance. If this scan disagrees with the automated IG or if promyelocytes are noted, a manual differential will be performed. Immature Gran Absolute 0.02 0.00 - 0.04 x10(3)/[facility] LABORATORY Blood specimen (specimen) 05/17/2016 5:35 AM EST 05/17/2016 5:42 AM EST Narrative Resulting Agency Comment Spec In Lab Que Amaro MD [place] [address] * (ABNORMAL) Hemogram (05/17/2016 5:35 AM EST) Pathologist [facility] White Blood Cell 6.8 4.0 - 9.5 x10(3)/[facility] LABORATORY Red Blood Cell 4.38(L) 4.58 - 5.54 x10(6)/[facility] LABORATORY Hemoglobin 14.2 13.7 - 16.5 gm/dL [facility] Hematocrit 39.4(L) 40.5 - 48.5 % [facility] Mean Cell Volume 90.0 82.9 - 93.1 fL [facility] Mean Cell Hemoglobin 32.4(H) 27.5 - 32.1 pg [facility] Mean Cell Hemoglobin Concentration 36.0(H) 32.0 - 35.7 gm/dL [facility] Platelet 213 145 - 357 x10(3)/[facility] LABORATORY RDW Standard Deviation 40.2 36.0 - 45.0 [facility] LABORATORY RDW coefficient of variation 12.2 11.4 - 13.8 % [facility] Mean Platelet Volume 8.7 7.6 - 12.9 [facility] LABORATORY NRBC% auto 0.0 % [facility] NRBC Absolute 0.000 0.000 - 0.000 x10(3)/[facility] LABORATORY Blood specimen (specimen) 05/17/2016 5:35 AM EST 05/17/2016 5:42 AM EST Narrative Resulting Agency Comment Spec In Lab Que Amaro MD HEMATOLOGY ORD ERABLES [facility] [place] [place] [address] * Magnesium (05/17/2016 5:35 AM EST) Magnesium 0.73 0.69 - 1.07 mmol/L [facility] Blood specimen (specimen) 05/17/2016 5:35 AM EST 05/17/2016 5:42 AM EST Narrative Resulting Agency Comment Spec In Lab Que Amaro MD CHEMISTRY ROCHELLE JENNINGS Performing Organization Address City/[facility]/ZIP Co de Phone Number [facility] [place] [address] * Phosphorus (05/17/2016 5:35 AM EST) Pathologist [facility] Phosphorus 2.9 2.5 - 4.5 mg/dL [facility] Blood specimen (specimen) 05/17/2016 5:35 AM EST 05/17/2016 5:42 AM EST Narrative Resulting Agency Comment Spec In Lab uQe Amaro MD CHEMISTRY ROCHELLE JENNINGS Performing Organization Address [facility] Co de Phone Number [facility] [place] [place] [address] * (ABNORMAL) Basic Metabolic Panel (non-fasting) (05/17/2016 5:35 AM EST) [facility] Glucose 164 65 - 199 mg/dL [facility] Comment:Diabetes: >=200 mg/d L plus symptoms Blood Urea Nitrogen 13 10 - 20 mg/dL [facility] Creatinine 1.23 0.80 - 1.50 mg/dL [facility] Comment: Please note that the pediatric reference intervals supplied above were not validated at [facility]. Results from pediatric patients should be interpreted in conjunction to the patient's age, height and muscle mass. Sodium 141 135 - 145 mmol/L [facility] Potassium 3.5 3.5 - 5.0 mmol/L [facility] Comment: Please note: ??Patients with WBC >100,000 may have falsely elevated Potassium levels. ??For accurate Potassium quantification in these patients send serum separator tube (gold top) for subsequent determinations. ??Contact the Clinical Chemistry Laboratory if there are any questions. Chloride 102 98 - 107 mmol/L [facility] Carbon Dioxide 26 22 - 31 mmol/L [facility] Anion Gap 13 5 - 15 mmol/L [facility] Calcium 8.9 8.5 - 10.5 mg/dL [facility] Est Glomerular Filtration Rate 59(L) [...] the following links into your internet browser. [email or web address] Blood specimen (specimen) 05/17/2016 5:35 AM EST 05/17/2016 5:42 AM EST Narrative Resulting Agency Comment Spec In Lab Que Amaro MD CHEMISTRY ROCHELLE JENNIGNS Performing Organization Address [facility] Co de Phone Number [facility] [place] [place] [address] * Tacrolimus level (05/16/2016 8:50 AM EST) Tacrolimus 5.7 ng/mL [facility] Comment: Trough therapeutic: ??5-15 ng/mL Performed by ultra-performance liquid chromatography tandem mass spectrometry (UPLCMS/MS). Blood specimen (specimen) 05/16/2016 8:50 AM EST 05/16/2016 11:43 AM EST Narrative Resulting Agency Comment Spec In Lab Que Amaro MD CHEMISTRY ORDBhargav JENNINGS Performing Organization Address [facility]/ZIP Co de Phone Number [facility] [place] [place] [address] * Differential, Automated (05/16/2016 6:24 AM EST) Neutrophil % 68.9 % [facility] Neutrophil Absolute 5.15 1.70 - 6.10 x10(3)/mcL [facility] Lymph % 16.7 % [facility] Lymphocytes Abs 1.2 0.9 - 3.2 x10(3)/[facility] LABORATORY Monocyte % 8.2 % [facility] Monocyte Abs 0.6 0.3 - 0.9 x10(3)/[facility] LABORATORY Eos % 4.5 % [facility] Eosinophils Abs 0.3 0.0 - 0.4 x10(3)/[facility] LABORATORY Basophil % 1.3 % [facility] Baso Absolute 0.1 0.0 - 0.1 x10(3)/[facility] LABORATORY Immature Gran % 0.40 % [facility] Comment: Immature granulocytes(IG's)percentage and absolute count will include metamyelocytes, myelocytes, and promyelocytes. Blood smears from CBCs yielding IG's will be scanned manually for concordance. If this scan disagrees with the automated IG or if promyelocytes are noted, a manual differential will be performed. Immature Gran Absolute 0.03 0.00 - 0.04 x10(3)/[facility] LABORATORY Blood specimen (specimen) 05/16/2016 6:24 AM EST 05/16/2016 6:34 AM EST Narrative Resulting Agency Comment Spec In Lab Que Amaro MD HEMATOLOGY ORD ERABLES [facility] [place] [place] [address] * (ABNORMAL) Hemogram (05/16/2016 6:24 AM EST) White Blood Cell 7.5 4.0 - 9.5 x10(3)/mc L [facility] Red Blood Cell 4.52(L) 4.58 - 5.54 x10(6)/mc L [facility] Hemoglobin 14.4 13.7 - 16.5 gm/dL [facility] Hematocrit 41.1 40.5 - 48.5 % [facility] Mean Cell Volume 90.9 82.9 - 93.1 fL [facility] Mean Cell Hemoglobin 31.9 27.5 - 32.1 pg [facility] Mean Cell Hemoglobin Concentration 35.0 32.0 - 35.7 gm/dL [facility] Platelet 215 145 - 357 x10(3)/mc L [facility] RDW Standard Deviation 40.2 36.0 - 45.0 fL [facility] RDW coefficient of variation 12.0 11.4 - 13.8 % [facility] Mean Platelet Volume 8.8 7.6 - 12.9 fL [facility] NRBC% auto 0.0 % [facility] NRBC Absolute 0.000 0.000 - 0.000 x10(3)/mc L [facility] Blood specimen (specimen) 05/16/2016 6:24 AM EST 05/16/2016 6:34 AM EST Narrative Resulting Agency Comment Spec In Lab Que Amaro MD HEMATOLOGY ORD ERABLES [facility] [place] [place] [address] * (ABNORMAL) Magnesium (05/16/2016 6:24 AM EST) Magnesium 0.58(L) 0.69 - 1.07 mmol/L [facility] Blood specimen (specimen) 05/16/2016 6:24 AM EST 05/16/2016 6:34 AM EST Narrative Resulting Agency Comment Spec In Lab Que Amaro MD CHEMISTRY ORDBhargav JENNINGS [facility] [place] [place] [address] * Phosphorus (05/16/2016 6:24 AM EST) Phosphorus 2.6 2.5 - 4.5 mg/dL [facility] Blood specimen (specimen) 05/16/2016 6:24 AM EST 05/16/2016 6:34 AM EST Narrative Resulting Agency Comment Spec In Lab Que Amaro MD CHEMISTRY ROCHELLE JENNINGS [facility] [place] [place] [address] * (ABNORMAL) Basic Metabolic Panel (non-fasting) (05/16/2016 6:24 AM EST) Glucose 180 65 - 199 mg/dL [facility] Comment:Diabetes: >=200 mg/d L plus symptoms Blood Urea Nitrogen 11 10 - 20 mg/dL [facility] Creatinine 1.30 0.80 - 1.50 mg/dL [facility] Comment: Please note that the pediatric reference intervals supplied above were not validated at [facility]. Results from pediatric patients should be interpreted in conjunction to the patient's age, height and muscle mass. Sodium 137 135 - 145 mmol/L [facility] Potassium 3.4(L) 3.5 - 5.0 mmol/L [facility] Comment: Please note: ??Patients with WBC >100,000 may have falsely elevated Potassium levels. ??For accurate Potassium quantification in these patients send serum separator tube (gold top) for subsequent determinations. ??Contact the Clinical Chemistry Laboratory if there are any questions. Chloride 100 98 - 107 mmol/L [facility] Carbon Dioxide 24 22 - 31 mmol/L [facility] Anion Gap 13 5 - 15 mmol/L [facility] Calcium 9.0 8.5 - 10.5 mg/dL [facility] Est Glomerular Filtration Rate 55(L) >=60 [facility] Comment: This [...] the following links into your internet browser. [email or web address] Blood specimen (specimen) 05/16/2016 6:24 AM EST 05/16/2016 6:34 AM EST Narrative Resulting Agency Comment Spec In Lab Que Amaro MD CHEMISTRY ORDE RABLES Performing Organization Address [facility]/ZIP Co de Phone Number [facility] [place] [address] * Urine culture (05/15/2016 3:04 PM EST) Urine Culture No growth (Less than 100 cfu/ml). [facility] Urine specimen from nephrostomy tube (specimen) 05/15/2016 3:04 PM EST 05/15/2016 4:31 PM EST Narrative Resulting Agency Comment Spec In Lab Que Amaro MD MICROBIOLOGY - GENERAL ORDERABLES Performing Organization Address [facility] Co de Phone Number [facility] [place] [address] * (ABNORMAL) Urinalysis with reflex Culture (05/15/2016 3:04 PM EST) Glucose, Urine Dipstick Negative Negative mg/dL [facility] Protein, Urine Dipstick Negative Negative mg/dL [facility] Bilirubin, Urine Dipstick Negative Negative mg/dL [facility] Comment: Clinical correlation required for positive Urine Bilirubin results as false positive may occur with some drugs and drug related products. If a false positive is suspected a serum total bilirubin should be considered if clinically indicated. Urobilinogen, Urine Dipstick Normal Normal mg/dL [facility] pH, Urn (dipstick) 7.0 5.0 - 8.0 [facility] Blood, Urine Dipstick Small(A) Negative mg/dL [facility] Ketone, Urine Dipstick Negative Negative mg/dL [facility] Nitrite, Urine Dipstick Negative Negative [facility] Leukocytes, Urine Dipstick Small(A) Negative [facility] LABORATORY Appearance, Urine Dipstick Clear Clear [facility] Specific [place] Urine Automated 1.009 1.002 - 1.030 [facility] Color, Urine Dipstick Straw Yellow [facility] RBC, Urine 9(H) 0 - 3 /HPF [facility] WBC, Urine 10(H) 0 - 3 /HPF [facility] Bacteria, Urine Rare(A) None /HPF [facility] Reflex to Culture Yes [facility] Urine specimen from nephrostomy tube (specimen) 05/15/2016 3:04 PM EST 05/15/2016 3:44 PM EST Narrative Resulting Agency Comment Spec In Lab Que Amaro MD URINE ORDERABL ES Performing Organization Address [facility] Co de Phone Number [facility] [place] [address] * Vancomycin, trough (05/15/2016 5:50 AM EST) Vancomycin, Trough 8.9 mg/L [facility] Comment: Therapeutic range for [...] ORDE RABLES Performing Organization Address [facility]/ZIP Co de Phone Number [facility] [place] [address] * (ABNORMAL) Differential, Automated (05/15/2016 3:15 AM EST) Pathologist [facility] Neutrophil % 72.9 % [facility] Neutrophil Absolute 6.64(H) 1.70 - 6.10 x10(3)/[facility] LABORATORY Lymph % 14.1 % [facility] Lymphocytes Abs 1.3 0.9 - 3.2 x10(3)/[facility] LABORATORY Monocyte % 7.9 % [facility] Monocyte Abs 0.7 0.3 - 0.9 x10(3)/[facility] LABORATORY Eos % 3.7 % [facility] Eosinophils Abs 0.3 0.0 - 0.4 x10(3)/[facility] LABORATORY Basophil % 1.1 % [facility] Baso Absolute 0.1 0.0 - 0.1 x10(3)/[facility] LABORATORY Immature Gran % 0.30 % [facility] Comment: Immature granulocytes(IG's)percentage and absolute count will include metamyelocytes, myelocytes, and promyelocytes. Blood smears from CBCs yielding IG's will be scanned manually for concordance. If this scan disagrees with the automated IG or if promyelocytes are noted, a manual differential will be performed. Immature Gran Absolute 0.03 0.00 - 0.04 x10(3)/[facility] LABORATORY Blood specimen (specimen) 05/15/2016 3:15 AM EST 05/15/2016 3:23 AM EST Narrative Resulting Agency Comment Spec In Lab Que Amaro MD HEMATOLOGY ORD ERABLES [facility] [place] [place] [address] * Hemogram (05/15/2016 3:15 AM EST) [facility] White Blood Cell 9.1 4.0 - 9.5 x10(3)/[facility] LABORATORY Red Blood Cell 4.58 4.58 - 5.54 x10(6)/[facility] LABORATORY Hemoglobin 14.7 13.7 - 16.5 gm/dL [facility] Hematocrit 41.3 40.5 - 48.5 % [facility] Mean Cell Volume 90.2 82.9 - 93.1 fL [facility] Mean Cell Hemoglobin 32.1 27.5 - 32.1 pg [facility] Mean Cell Hemoglobin Concentration 35.6 32.0 - 35.7 gm/dL [facility] Platelet 209 145 - 357 x10(3)/[facility] LABORATORY RDW Standard Deviation 40.0 36.0 - 45.0 [facility] LABORATORY RDW coefficient of variation 12.2 11.4 - 13.8 % [facility] Mean Platelet Volume 8.7 7.6 - 12.9 [facility] LABORATORY NRBC% auto 0.0 % [facility] NRBC Absolute 0.000 0.000 - 0.000 x10(3)/[facility] LABORATORY Blood specimen (specimen) 05/15/2016 3:15 AM EST 05/15/2016 3:23 AM EST Narrative Resulting Agency Comment Spec In Lab Que Amaro MD HEMATOLOGY ORD ERABLES Performing Organization Address City/[facility]/ZIP Co de Phone Number [facility] [place] [place] [address] * (ABNORMAL) Magnesium (05/15/2016 3:15 AM EST) Magnesium 0.68(L) 0.69 - 1.07 mmol/L [facility] Blood specimen (specimen) 05/15/2016 3:15 AM EST 05/15/2016 3:23 AM EST Narrative Resulting Agency Comment Spec In Lab Que Amaro MD CHEMISTRY ORDBhargav JENNINGS [facility] [place] [place] [address] * Phosphorus (05/15/2016 3:15 AM EST) Phosphorus 2.9 2.5 - 4.5 mg/dL [facility] Blood specimen (specimen) 05/15/2016 3:15 AM EST 05/15/2016 3:23 AM EST Narrative Resulting Agency Comment Spec In Lab Que Amaro MD CHEMISTRY ROCHELLE JENNINGS [facility] [place] [place] [address] * (ABNORMAL) Basic Metabolic Panel (non-fasting) (05/15/2016 3:15 AM EST) Glucose 162 65 - 199 mg/dL [facility] Comment:Diabetes: >=200 mg/d L plus symptoms Blood Urea Nitrogen 9(L) 10 - 20 mg/dL [facility] Creatinine 1.23 0.80 - 1.50 mg/dL [facility] Comment: Please note that the pediatric reference intervals supplied above were not validated at [facility]. Results from pediatric patients should be interpreted in conjunction to the patient's age, height and muscle mass. Sodium 140 135 - 145 mmol/L [facility] Potassium 3.6 3.5 - 5.0 mmol/L [facility] Comment: Please note: ??Patients with WBC >100,000 may have falsely elevated Potassium levels. ??For accurate Potassium quantification in these patients send serum separator tube (gold top) for subsequent determinations. ??Contact the Clinical Chemistry Laboratory if there are any questions. Chloride 101 98 - 107 mmol/L [facility] Carbon Dioxide 26 22 - 31 mmol/L [facility] Anion Gap 13 5 - 15 mmol/L [facility] Calcium 9.0 8.5 - 10.5 mg/dL [facility] Est Glomerular Filtration Rate 59(L) [...] the following links into your internet browser. [email or web address] Blood specimen (specimen) 05/15/2016 3:15 AM EST 05/15/2016 3:23 AM EST Narrative Resulting Agency Comment Spec In Lab Que Amaro MD [facility] ROCHELLE JENNINGS [facility] Organization Address City/State/ZIP Co de Phone Number [place] [phone] * XR Chest PA or AP 1 [...] (ABNORMAL) Differential, Automated (05/14/2016 6:45 AM EST) Pathologist [facility] Neutrophil % 77.5 % [facility] Neutrophil Absolute 7.24(H) 1.70 - 6.10 x10(3)/ L [facility] Lymph % 11.1 % [facility] Lymphocytes Abs 1.0 0.9 - 3.2 x10(3)/[facility] LABORATORY Monocyte % 8.4 % [facility] Monocyte Abs 0.8 0.3 - 0.9 x10(3)/[facility] LABORATORY Eos % 1.7 % [facility] Eosinophils Abs 0.2 0.0 - 0.4 x10(3)/[facility] LABORATORY Basophil % 0.9 % [facility] Baso Absolute 0.1 0.0 - 0.1 x10(3)/[facility] LABORATORY Immature Gran % 0.40 % [facility] Comment: Immature granulocytes(IG's)percentage and absolute count will include metamyelocytes, myelocytes, and promyelocytes. Blood smears from CBCs yielding IG's will be scanned manually for concordance. If this scan disagrees with the automated IG or if promyelocytes are noted, a manual differential will be performed. Immature Gran Absolute 0.04 0.00 - 0.04 x10(3)/ L [facility] Blood specimen (specimen) 05/14/2016 6:45 AM EST 05/14/2016 7:06 AM EST Narrative Resulting Agency Comment Spec In Lab Que Amaro MD HEMATOLOGY ORD ERABLES [facility] [place] [place] [address] * (ABNORMAL) Hemogram (05/14/2016 6:45 AM EST) Pathologist [facility] White Blood Cell 9.4 4.0 - 9.5 x10(3)/ L [facility] Red Blood Cell 4.43(L) 4.58 - 5.54 x10(6)/mc L [facility] Hemoglobin 14.2 13.7 - 16.5 gm/dL [facility] Hematocrit 41.1 40.5 - 48.5 % [facility] Mean Cell Volume 92.8 82.9 - 93.1 fL [facility] Mean Cell Hemoglobin 32.1 27.5 - 32.1 pg [facility] Mean Cell Hemoglobin Concentration 34.5 32.0 - 35.7 gm/dL [facility] Platelet 208 145 - 357 x10(3)/[facility] LABORATORY RDW Standard Deviation 41.6 36.0 - 45.0 [facility] LABORATORY RDW coefficient of variation 12.2 11.4 - 13.8 % [facility] Mean Platelet Volume 9.0 7.6 - 12.9 [facility] LABORATORY NRBC% auto 0.0 % [facility] NRBC Absolute 0.000 0.000 - 0.000 x10(3)/ L [facility] Blood specimen (specimen) 05/14/2016 6:45 AM EST 05/14/2016 7:06 AM EST Narrative Resulting Agency Comment Spec In Lab Que Amaro MD HEMATOLOGY ORD ERABLES Performing Organization Address City/State/[facility] Co de Phone Number [facility] [place] [place] [address] * (ABNORMAL) Magnesium (05/14/2016 6:45 AM EST) Magnesium 0.60(L) 0.69 - 1.07 mmol/L [facility] Blood specimen (specimen) 05/14/2016 6:45 AM EST 05/14/2016 7:06 AM EST Narrative Resulting Agency Comment Spec In Lab Que Amaro MD CHEMISTRY ROCHELLE JENNINGS Performing Organization Address [facility] Co de Phone Number [facility] [place] [address] * (ABNORMAL) Phosphorus (05/14/2016 6:45 AM EST) Pathologist [facility] Phosphorus 2.1(L) 2.5 - 4.5 mg/dL [facility] Blood specimen (specimen) 05/14/2016 6:45 AM EST 05/14/2016 7:06 AM EST Narrative Resulting Agency Comment Spec In Lab Que Amaro MD CHEMISTRY ROCHELLE JENNINGS Performing Organization Address [facility] Co de Phone Number [facility] [place] [place] [address] * (ABNORMAL) Basic Metabolic Panel (non-fasting) (05/14/2016 6:45 AM EST) [facility] Glucose 165 65 - 199 mg/dL [facility] Comment:Diabetes: >=200 mg/d L plus symptoms Blood Urea Nitrogen 12 10 - 20 mg/dL [facility] Creatinine 1.22 0.80 - 1.50 mg/dL [facility] Comment: Please note that the pediatric reference intervals supplied above were not validated at [facility]. Results from pediatric patients should be interpreted in conjunction to the patient's age, height and muscle mass. Sodium 139 135 - 145 mmol/L [facility] Potassium 3.3(L) 3.5 - 5.0 mmol/L [facility] [...] 31 mmol/L [facility] Anion Gap 14 5 - 15 mmol/L [facility] Calcium 8.8 8.5 - 10.5 mg/dL [facility] Est Glomerular Filtration Rate 59(L) [...] the following links into your internet browser. [email or web address] Blood specimen (specimen) 05/14/2016 6:45 AM EST 05/14/2016 7:06 AM EST Narrative Resulting Agency Comment Spec In Lab Que Amaro MD CHEMISTRY ROCHELLE JENNINGS Performing Organization Address [facility] de Phone Number [facility] [place] [address] * C. Difficile Screen (05/14/2016 2:30 AM EST) C Diff Interp Negative Negative [facility] Comment: C. diff ??Negative Clostridium [...] AL ORDERABLES Performing Organization Address [facility] Co de Phone Number [facility] [place] [address] documented in this encounter Visit Diagnoses Diagnosis [...] 1 dose, On Thu05/26/16 at 1000, Routine Given 05/26/2016 10:32 AM EST 10 mg bisacodyl (DULCOLAX) suppository 10 mg 10 mg, Rectal, ONCE, 1 dose, On Thu05/27/16 at 0845, Routine Given 05/27/2016 10:24 AM [...] 10 g, Oral, DAILY, First dose on 05/26/16 at 1015, Until Discontinued, Routine Given 05/28/2016 [...] mcg, Oral, EVERY MORNING, First dose on 05/24/16 at 0600, Until Discontinued, Routine Given 05/28/2016 [...] doses, First dose (after last reorder) on Thu05/18/16 at 0800, Last dose on Thu05/18/16 at 1000, Administer over 120 Minutes Given [...] doses, First dose (after last modification) on Thu05/25/16 at 1115, Last dose on Thu05/25/16 at 1200, Administer over 60 Minutes, -Use [...] at 1707, Until Thu05/17/16 at 0819 New Bag 05/17/2016 6:00 AM EST 100 mL/hr 100 mL/hr New Bag 05/16/2016 10:00 PM EST 100 mL/hr 100 mL/hr New Bag 05/15/2016 6:01 PM EST 100 mL/hr 100 mL/hr sodium chloride 0.9% infusion 150 mL/hr, Intravenous, CONTINUOUS, Starting on Thu05/19/16 at 1045, Until Thu05/20/16 at 2033 New Bag 05/19/2016 9:35 PM EST 150 mL/hr 150 mL/hr New Bag 05/19/2016 12:28 PM EST 150 mL/hr 150 mL/hr sodium chloride 0.9% infusion 150 mL/hr, Intravenous, CONTINUOUS, Starting on Thu05/20/16 at 2100, Until Thu05/20/16 at 2249, PACU Recovery [facility] 05/20/2016 9:50 PM EST 150 mL/hr 150 mL/hr sodium chloride 0.9% infusion 100 mL/hr, Intravenous, CONTINUOUS, Starting on Thu05/21/16 at 0945, Until Thu05/25/16 at 1006 [facility] 05/25/2016 10:01 AM EST 100 mL/hr 100 mL/hr New [facility] 05/25/2016 12:26 AM EST 100 mL/hr 100 mL/hr New Bag 05/24/2016 5:01 AM EST 100 mL/hr 100 mL/hr sodium chloride 0.9% infusion 75 mL/hr, Intravenous, CONTINUOUS, Starting on Thu05/26/16 at 1000, Until Thu05/27/16 at 0827 [facility] 05/26/2016 10:24 AM EST 75 mL/hr 75 [...] , Routine, Indication for (Active or Suspected): Urinary Tract/Pyelonephritis Given 05/15/2016 6:00 AM EST 1,250 mg [...] , Routine, Indication for (Active or Suspected): Urinary Tract/Pyelonephritis Given 05/21/2016 5:42 AM EST 1,5 00 mg Given 05/20/2016 6:47 AM EST 1,500 [...] , Routine, Indication for (Active or Suspected): Urinary Tract/Pyelonephritis Given 05/23/2016 8:52 AM EST 1,500 mg [...] Reason: Patient/family refused)1005 (Given - Provider: Monique Chrsitian RN)1535 (Given - Provider: Monique Christian RN)2146 [...] Mirian Gambino RN)1259 (Given - Provider: Mirian Gambino, JADEN)1605 (Given - Provider: Mirian Gambino RN)2036 (Given [...] at 0430 0415 (Given - Provider: Cami Leonardo, JADEN) hydrALAZINE (APRESOLINE) injection 10 mg (COMPLETED) [...] Denney RN) 0610 (Given - Provider: Cami Leonardo, JADEN) 0613 (Given - Provider: Cami Leonardo RN) [...] Mirian Gambino RN)2034 (Given - Provider: Cami Leonrado RN) 100 (Given - Provider: Monique Christian [...] Leonardo RN) 1006 (Given - Provider: Monique Christian RN)2012 (Given - Provider: Keyana Moy RN) 0837 (Given - Provider: Lorena Oneal RN) pantoprazole (PROTONIX) tablet 40 mg 40 mg, Oral, DAILY, First dose on Thu05/25/16 at 0900, Until Discontinued, DO NOT CRUSH OR OPEN 0836 (Given - Provider: Mirian Gambino RN) 1011 (Given - Provider: Monique Christian RN) 0837 [...] RN)2034 (Given - Provider: Cami Leonardo RN) 1018 (Given - Provider: Monique Christian RN)2013 (Given - Provider: Keyana Moy RN) 0838 (Given - Provider: Lorena Oneal, JADEN) sodium chloride 0.9 % flush 5 mL 5 mL, Intravenous, 2 TIMES DAILY, First dose on Thu05/13/16 at 2100, Until Discontinued, Routine 0841 (Given - Provider: Mirian Gambino RN)2035 (Given - Provider: Cami Leonardo RN) 1018 (Given - Provider: Monique Christian RN)2019 (Given [...] Gambino RN)2034 (Given - Provider: Cami Leonardo JADEN) Continuous Medication Order 05/26/2016 05/27/2016 05/28/2016 sodium chloride 0.9% infusion (CANCELED) 75 mL/hr, Intravenous, CONTINUOUS, Starting on Thu05/26/16 at 1000, Until Thu05/27/16 at 0827 1024 (New Bag - Provider: Mirian Gambino RN) PRN Medication Order 05/26/2016 05/27/2016 05/28/2016 [...] RN)1708 (See Alternative - Provider: Mirian Gambino, JADEN)2156 (See Alternative - Provider: Cami Leonardo RN) 0216 (See Alternative - Provider: Cami Leonardo RN)0611 (See Alternative - Provider: Cami Leonardo RN)1014 (See Alternative - Provider: Monique Christian RN)1728 (See Alternative - Provider: Monique Christian RN)2327 (See Alternative - Provider: Cami Leonardo RN) 9910 (See Alternative - Provider: Cami Leonardo RN)0821 (See Alternative - Provider: Ryan Fuchs RN)1228 [...] Routine documented in this encounter Care Teams Energy Efficiency Specialist Relationship Specialty Start Date End Date Urbano Denis DO [address] [place] [address] PCP - General 09/03/12 03/17/22 Ruchi Valles RN Nurse Clinic Transplant Surgery 07/30/15 documented as of this encounter
--- OUTSIDE RECORDS SUMMARY | 2024-04-04 14:09 | XMS_ITS | Encounter Summary ---
Author Organization [facility] [place] [address] Care Team Providers Care Clinical Laboratory Aide Name Role Phone Urbano Denis DO Primary Care Provider [phone] Reason for Visit * Auth/Cert Specialty Diagnoses / Procedures Referred By Humberto flor Referred To Contact Diagnoses Dehydration Referral ID Status Reason Start Date Expiration Date Visits Re quested Visits Authorized [id number] 1 1 Encounter Details Date Type Department Care Team (Late st Contact Info) Description 05/20/2016 12:43 PM EST - 05/20/2016 6:12 PM EST Surgery [place] [id number] Moy Arredondo MD [facility] [place] [address] @URETERONEOCYSTOSTOMY ANASTOMOSIS OF SINGLE URETER TO BLADDER [...] - Primary * Pako Booth MD - Resident-Transmission Mechanic Panel 2: * Que Amaro MD - [...] No evidence of viral inclusions. B - [place] left ureter: ? 1. Benign ureter. ? [...] central cross- sections. ??(R2) B - ??Labeled/Fixative: [place] left ureter, fresh. Quantity/Size: Single, 8.2 x [...] AM LAB, [facility] 9:00 AM Que Amaro MD Leb Trans 2M [facility] 06/03/2016 10:00 AM URODYNAMIC LAB [facility] 06/03/2016 10:00 AM UROLOGY, NURSE [facility] 06/03/2016 10:40 AM Moy Arredondo MD [facility] 06/25/2016 10:00 AM Franko Kim MD Leb Infec 5C [facility] 09/15/2016 9:00 AM LAB, THREE L Lab 3L [facility] 09/15/2016 10:00 AM Tal Eagle MD Leb Trans 2M [facility] Outpatient Services/Studies: XR Fluoro Cystogram Standing [...] date and time of your appointment.Phone number: [phone] Future Appointments Date Time Provider Department Center 06/03/2016 8:00 AM LAB, THREE L Lab 3L [facility] 06/03/2016 9:00 AM Que Amaro MD Leb [...] Department anytime (day, night, weekend, holiday) at [phone] . After hours, please follow the instructions on the message. You can also reach the clinical rehabilitation coordinator after hours by calling (ask for the clinical rehabilitation coordinator on-call). General Instructions None Provider Contact Information: If you have any questions or concerns during daytime hours, please call the Transplant clinic at [phone]. If you have questions or concerns during the night or weekends, please call [phone] ask to be transferred to the leave coordinator transportation engineering technician. Signed: EPIFANIO TORRE MD 05/28/2016 documented in this encounter Discharge Instructions * Patient Instructions* Epfianio Torre MD - 05/25/2016 6:30 AM EST [...] date and time of your appointment.Phone number: [phone] Future Appointments Date Time Provider Department Center 06/03/2016 8:00 AM LAB, THREE L Lab 3L [facility] 06/03/2016 9:00 AM Que Amaro MD Leb Trans 2M [facility] 06/03/2016 10:00 AM URODYNAMIC LAB Le[facility] Uro [facility] 06/03/2016 10:00 AM UROLOGY, NURSE [facility] 06/03/2016 10:40 AM Moy Arredondo MD Le[facility] Uro [facility] 06/25/2016 10:00 AM Franko Kim MD Leb Infec 5C [facility] 09/15/2016 9:00 AM LAB, THREE L Lab 3L [facility] 09/15/2016 10:00 AM Tal Eagle MD [...] the message. You can also reach the clinical rehabilitation coordinator after hours by calling (ask for the clinical rehabilitation coordinator on-call). documented in this encounter Medications [...] from bladder to proximal transplant ureter on terminal worker antibiotics for coag negative staph bacteremia. Keep [...] performed and anastomosed to proximal graft ureter 2-[place] left ureter divided and dissected then ligated [...] treatment of chronic HCV ?? --- ASSESSMENT: Cdoy Bolden is a 65 y.o. male on terminal worker IV abx for coag neg staph bacteremia [...] full code Francois Bowie MD Transplant Surgery [phone] Associated attestation - Que Amaro MD - [...] from bladder to proximal transplant ureter on terminal worker antibiotics for coag negative staph bacteremia. Keep [...] performed and anastomosed to proximal graft ureter 2-[place] left ureter divided and dissected then ligated [...] Bolden is a 65 y.o. male on terminal worker IV abx for coag neg staph bacteremia [...] from bladder to proximal transplant ureter on terminal worker antibiotics for coag negative staph bacteremia. Keep [...] performed and anastomosed to proximal graft ureter 2-[place] left ureter divided and dissected then ligated [...] Bolden is a 65 y.o. male on terminal worker IV abx for coag neg staph bacteremia [...] from bladder to proximal transplant ureter on snf antibiotics for coag negative staph bacteremia. PLAN: [...] performed and anastomosed to proximal graft ureter 2-[place] left ureter divided and dissected then ligated [...] Bolden is a 65 y.o. male on terminal worker IV abx for coag neg staph bacteremia [...] from bladder to proximal transplant ureter on snf antibiotics for coag negative staph bacteremia. PLAN: [...] ureter. Tension free. Short JJ stent placed [place] left ureter divided and dissected then ligated [...] Franko Kim MD Infectious Disease Fellow Pager [phone] Attending Addendum: I have seen and examined the patient, reviewed the data and agree with the note by Dr. Tipton. * Kirby Cody - 05/23/2016 2:32 PM EST Humidifier Operator Encounter Note Patient Name: Cody Bolden : [id number] MR#: [id number] Admit Date: 05/13/2016 4:29 PM Hospital Day [...] notes. MARS SCHREIBER RN 05/23/2016 Pager # [phone] I performed the above scribed service and agree with the accuracy of the note. Memo Alva MD * Herlinda Bell RD - 05/23/2016 1:24 PM EST This entry writer has noted that patient has been [...] of bowel function yet 3 Days [facility] 05/20 - Intraop findings: 1-Graft ureter completely stuck in pelvis, dissected up until the renal pelvis. Boari flap performed and anastomosed to proximal graft ureter 2-[place] left ureter divided and dissected then ligated [...] Bolden is a 65 y.o. male on snf IV abx for coag neg staph bacteremia [...] from bladder to proximal transplant ureter on snf antibiotics for coag negative staph bacteremia. PLAN: [...] notes. MARS SCHREIBER RN 05/22/2016 Pager # [phone] Ria Schreiber RN, has performed the documentation [...] performed and anastomosed to proximal graft ureter 2-[place] left ureter divided and dissected then ligated [...] Bolden is a 65 y.o. male on snf IV abx for coag neg staph bacteremia [...] from bladder to proximal transplant ureter on snf antibiotics for coag negative staph bacteremia. PLAN: [...] notes. KITTY STEELE RN 05/21/2016 Pager # [phone] Socorro Steele RN, has performed the documentation [...] performed and anastomosed to proximal graft ureter 2-[place] left ureter divided and dissected then ligated [...] Bolden is a 65 y.o. male on snf IV abx for coag neg staph bacteremia [...] Note Patient: Cody Bolden s/p Surgery: 05/20/2016 [id number] Procedure(s) (LRB): @URETERONEOCYSTOSTOMY ANASTOMOSIS OF SINGLE URETER TO BLADDER (Left) @URETERONEOCYSTOSTOMY ANASTOMOSIS OF SINGLE URETER TO BLADDER (N/A) Surgeon(s) and Role: Panel 1: * Moy Arredondo MD - Primary * Pako Booth MD - Resident-Transmission Mechanic Panel 2: * Que Amaro MD - [...] Bolden is a 65 y.o. male on snf IV abx for coag neg staph bacteremia [...] of the kidney. Will send ureter for [id number] to determine whether there is evidence of [...] Bolden is a 65 y.o. male on terminal worker IV abx for coag neg staph bacteremia [...] Bolden is a 65 y.o. male on snf IV abx for coag neg staph bacteremia [...] Bolden is a 65 y.o. male on snf IV abx for coag neg staph bacteremia [...] Patient is on a regular diet. This entry writer spoke with patient and his . [...] Franko Kim MD Infectious Disease Fellow Pager [phone] Attending Addendum: I have seen and examined [...] Bolden is a 65 y.o. male on snf IV abx for coag neg staph bacteremia [...] Bolden is a 65 y.o. male on snf IV abx for coag neg staph bacteremia [...] Bell RD - 05/14/2016 1:44 PM EST [facility] Post Transplant Nutrition Follow Up Date: 05/14/2016 Patient: Cody Bolden Transplant Date: 09/16/15 [place] organ UNOS diagnosis: Transplant: Mr. Cody [...] Value Date CHLPL 134 05/13/2016 Assessment: This entry writer saw patient in clinic yesterday. He [...] inpatient; hydration status more appropriate. Plan: This entry writer provided patient with a booklet Tips for Better Food Intake to offer tips for loss ofappetite and help to lessen diarrhea, as well as ideas for healthy snacks. This entry writer will follow patient's labs and weight [...] Bolden is a 65 y.o. male on terminal worker IV abx for coag neg staph bacteremia [...] tube Discussed Boari flap, graft ureter to [place] ureter anastomosis, ileal ureter with him and [...] 65 y.o. male who presents to [facility] with fever. History of Present Illness / [...] further clinical details. Kitty Marie MD 05/13/16 8461 * Paul Bain RN - 05/13/2016 5:33 PM EST Pt's leg bag switched to gravity bag for Pt's comfort. Per his request * Paul Bain RN - 05/13/2016 4:[address] Mix at the bed side * Martina Mix MD - 05/13/2016 4:34 PM EST Emergency Department Cody Bolden is a 65 y.o. male who presents to [facility] with from Transplant Surgery Clinic with an [...] (Interventions Implemented as Appropriate) 05/26/16 1519 05/27/16 1886 Coping/Psychosocial Plan Of Care Reviewed With -- [...] Personalized Care? -- You can call me [facility] -- 05/24/16 1542 05/25/16 1449 Individualization [...] nursing;patient Problem: Health Knowledge, Opportunity to Enhance (Adult,NICU,[place],Obstetrics,Pediatric) Intervention: Enhance Health Knowledge 05/27/16 2140 Coping Strategies Supportive Measures active listening utilized [...] Purposeful hourly rounding; room near unit station; [employer] Patient-specific fall prevention interventions for sensory deficits [...] 05/27/16 1542 Health Knowledge, Opportunity to Enhance (Adult,NICU,[place],Obstetrics,Pediatric) Knowledgeable about Health Subject/Topic making progress toward [...] nursing;patient Problem: Health Knowledge, Opportunity to Enhance (Adult,NICU,[place],Obstetrics,Pediatric) Intervention: Enhance Health Knowledge 05/26/16 204 Coping Strategies Supportive Measures active listening utilized Family/Support System Care involvement promoted Goal: Knowledgeable about Health Subject/Topic Patient will demonstrate the desired outcomes by discharge/transition of care. Outcome: Ongoing (Interventions Implemented as Appropriate) 05/26/16 0128 Health Knowledge, Opportunity to Enhance (Adult,NICU,[place],Obstetrics,Pediatric) Knowledgeable about Health Subject/Topic making progress toward [...] Outcome: Ongoing (Interventions Implemented as Appropriate) 05/26/16 4488 Coping/Psychosocial Plan Of Care Reviewed With patient [...] OT needs. Precautions: immunosuppression, IV, whaley Pager: [phone] TAMELA MAK OT 05/25/2016 Occupational Therapy Rehabilitation [...] ambulate. Will continue to monitor. @0551: paged transportation engineering technician MD Bonner for pt's elevated BP ( 184/83 @0424/ 180/81@9093). Pt c/o heartburnbut no chest pain. @0618: [...] Appropriate) 05/24/161541 Health Knowledge, Opportunity to Enhance (Adult,NICU,[place],Obstetrics,Pediatric) Knowledgeable about Health Subject/Topic making progress toward [...] use of PCEA. Did not give Metop [id number], due to HR <55. Still unable to [...] further information as needed. Melissa Stone, CINTHIA P.3158 Goal: Discharge Needs Assessment Outcome: Ongoing (Interventions [...] to Achieve 1 day Gait Training Goal, [place] Level independent Gait Training Goal, Distance to Achieve >150' Gait Training Goal, Outcome goal met Goal: Physical Therapy Goal Stand Alone Therapy Goal Outcome: Outcome (s) achieved Date Met: 05/22/16 05/22/16 0953 Physical Therapy Goal PT Goal, Time to Achieve 1 day PT Goal, [place] Level independent PT Goal, Additional Goal Pt [...] PM EST Patient Name: Cody Bolden : [id number] MR#: [id number] ?? Case Date: 05/20/2016 ?? Surgeon: Surgeon(s) and Role: Panel 1: * Moy Arredondo MD - Primary * Pako Booth MD - Resident-Transmission Mechanic ?? Panel 2: * Que Amaro MD - Primary ?? Preoperative diagnosis: Transplanted ureter stricture ?? Postoperative diagnosis: Same ?? Procedure(s): Boari flap from bladder to proximal transplant ureter ? Anesthesia: Epidural, General ?? Findings: ?? 1-Graft ureter completely stuck in pelvis, dissected up until the renal pelvis. Boari flap performed and anastomosed to proximal graft ureter 2-[place] left ureter divided and dissected then ligated [...] anastomosis between the graft ureter and the [place] ureter. The patient was then brought into [...] the bladder until we got to the [place] ureter, which was divided as it was [...] note, prior to closing the anastomosis, a 6-Sami double-J stent with 12 cm of length [...] ureter. Tension free. Short JJ stent placed [place] left ureter divided and dissected then ligated after observing it throughout the procedure without urine production MOY ARREDONDO MD 05/22/2016 * Brief Op Note - Pako Booth - 05/20/2016 9:09 PM EST Brief Operative Note Patient Name: Cody Bolden : [id number] MR#: [id number] Case Date: 05/20/2016 Surgeon: Surgeon(s) and Role: Panel 1: * Moy Arredondo MD - Primary * Pako Booth MD - Resident-Transmission Mechanic Panel 2: * Que Amaro MD - Primary Preoperative diagnosis: Transplanted ureter stricture Postoperative diagnosis: Same Procedure(s): Boari flap from bladder to proximal transplant ureter Anesthesia: Epidural, General Findings: 1-Graft ureter completely stuck in pelvis, dissected up until the renal pelvis. Boari flap performed and anastomosed to proximal graft ureter 2-[place] left ureter divided and dissected then ligated [...] PM EST Clinical Pharmacist Note-Vancomycin Cody Bolden [id number] Cody Bolden is a 65 y.o. [...] have. Alternately, during off-hours you may call [phone] to contact a pharmacist. ELEANOR [facility] Ext [phone] * Consult Note - Guy Almanza RN [...] of infiltration/extravasation Name of MD contacted Paged [phone] pager at 0910 05/17 Name of RN contacted Katharine RN 05/17 at 0900 Name of Pharmacist if consulted N/A Name of Plastics MD ( if consulted) NA (Mandatory photo for infiltrations/ extravasations scoring a stage 2 or greater, but recommended for stage 1)( include measuring tape and identifier in the photo) SAP PI ARCHITECT CARING FOR THIS PATIENT WILL CONTINUE TO [...] Conf Participants physician;nursing * Consult Note - Fna Roca LPN - 05/16/2016 7:10 AM EST [...] EST Problem: Health Knowledge, Opportunity to Enhance (Adult,NICU,[place],Obstetrics,Pediatric) Goal: Knowledgeable about Health Subject/Topic Patient will [...] EXTREMITY performed by Que Amaro MD at [facility] MAIN OR ??? Pro transplantation of kidney N/A 09/16/2015 @KIDNEY TRANSPLANT, WITHOUT RECIPIENT NEPHRECTOMY performed by Franko Larkin MD at [facility] MAIN OR ??? Pro transplant, prep cadaver renal graft N/A 09/16/2015 @PREPARATION CADAVERIC RENAL ALLOGRAFT performed by Franko Larkin MD at [facility] MAIN OR ??? N/A 09/16/2015 ORGAN ACQUISITION RENAL, CADAVERIC performed by Franko Larkin MD at [facility] MAIN OR SOCIAL HISTORY Social [...] CREATININE 1.23 1.22 1.39 CULTURES: Urine culture [[id number]] (Abnormal) Collected: 05/13/16 1300 ? Lab Status: [...] Sensitive ? Trimethoprim/Sulfa Sensitive ? Blood culture [[id number]] Collected: 05/13/16 1232 ? Lab Status: Preliminary result Specimen: Blood from Peripheral Updated: 05/15/16 1501 ? Blood Culture No growth at 2 days. ? Blood culture [[id number]] Collected: 05/13/16 1219 ? Lab Status: Preliminary result Specimen: Blood from PICC Line Updated: 05/15/16 1501 ? Blood Culture No growth at 2 days. ? Urine culture Nephrostomy Urine [[id number]] Collected: 04/28/16 1344 ? Lab Status: Final [...] EXTREMITY performed by Que Amaro MD at [facility] OR [...] Larkin MD at [facility] OR Prior To Admission Medications: [...] Do not hesitate to page us at [phone] with any further questions or concerns. Franko Kim MD Infectious Disease Fellow Pager [phone] Attending Addendum: I have seen and examined [...] Lives in a home with his in [facility] Social & Family Supports/Community Resources: , family and friends Behavioral Health History: None on file Substance Use/Abuse: None on file Other Pertinent/Service Specific Information: None Health/Prescription Coverage: Primary Insurance: Medicare Part A & B Secondary Insurance: BC/BS Prescription Coverage: Yes Preferred [facility]acy[facility] Other: None Primary Care Provider: Urbano Denis MD [phone] Patient/Caregiver Goals of Treatment: Patient states I [...] of care planning. Malina Phelan RN Pager: [phone] * Plan of Care - Keyana Moy [...] PM EDT Office Visit Cardiology at [address] [phone] Jay Urban MD [facility] [place] [address] 04/15/2024 10:00 AM EDT Hospital Encounter Non-[place] [phone] Arrived Scheduled Orders Name Type Priority Associated Diagnoses Orde r Schedule XR Fluoro No Rad <1Hr Imaging Routine Onc e PRN (for Radiant use) for 1 Occurrences starting 05/20/2016 until 05/20/2016 documented as of this encounter Procedures Procedure Name Priority Date/Time Associated Diagnosis Comments [employer]ER SCAN 05/29/2016 12:00 AM EST HEMOGRAM STAT [...] in this encounter Results * SCAN DOC: [employer] TE[employer]ER (05/29/2016 12:00 AM EST) Anatomical Region Laterality Modality Other Scanning Provider MEDIA MGR SCAN EXT O RDR/RSLT * Tacrolimus level (05/28/2016 8:01 AM EST) Tacrolimus 4.7 ng/mL [facility] Comment: Trough therapeutic: ??5-15 ng/mL Performed by ultra-performance liquid chromatography tandem mass spectrometry (UPLCMS/MS). Blood specimen (specimen) 05/28/2016 8:01 AM EST 05/28/2016 11:10 AM EST Narrative Resulting Agency Comment Spec In Lab Que Amaro MD CHEMISTRY ROCHELLE JENNINGS [facility] [place] [address] * (ABNORMAL) Differential, Automated (05/28/2016 8:01 AM EST) Neutrophil % 82.6 % [facility] Neutrophil Absolute 10.51(H) 1.70 - 6.10 x10(3)/mc L [facility] Lymph % 9.7 % [facility] Lymphocytes Abs 1.2 0.9 - 3.2 x10(3)/ L [facility] Monocyte % 5.3 % [facility] Monocyte Abs 0.7 0.3 - 0.9 x10(3)/[facility] Eos % 1.5 % [facility] Eosinophils Abs 0.2 0.0 - 0.4 x10(3)/[facility] Basophil % 0.4 % [facility] Baso Absolute 0.0 0.0 - 0.1 x10(3)/[facility] Immature Gran % 0.50 % [facility] Comment: Immature granulocytes(IG's)percentage and absolute count will include metamyelocytes, myelocytes, and promyelocytes. Blood smears from CBCs yielding IG's will be scanned manually for concordance. If this scan disagrees with the automated IG or if promyelocytes are noted, a manual differential will be performed. Immature Gran Absolute 0.07(H) 0.00 - 0.04 x10(3)/ L [facility] Blood specimen (specimen) 05/28/2016 8:01 AM EST 05/28/2016 8:07 AM EST Narrative Resulting Agency Comment Spec In Lab Que Amaro MD HEMATOLOGY ORD ERABLES [facility] [place] [address] * (ABNORMAL) Hemogram (05/28/2016 8:01 AM EST) White Blood Cell 12.7(H) 4.0 - 9.5 x10(3)/[facility] Red Blood Cell 4.20(L) 4.58 - 5.54 x10(6)/[facility] Hemoglobin 13.8 13.7 - 16.5 gm/dL [facility] Hematocrit 39.6(L) 40.5 - 48.5 % [facility] Mean Cell Volume 94.3(H) 82.9 - 93.1 [facility] Mean Cell Hemoglobin 32.9(H) 27.5 - 32.1 pg [facility] Mean Cell Hemoglobin Concentration 34.8 32.0 - 35.7 gm/dL [facility] Platelet 276 145 - 357 x10(3)/[facility] RDW Standard Deviation 45.1(H) 36.0 - 45.0 [facility] RDW coefficient of variation 13.2 11.4 - 13.8 % [facility] Mean Platelet Volume 8.5 7.6 - 12.9 [facility] NRBC% auto 0.0 % [facility] NRBC Absolute 0.000 0.000 - 0.000 x10(3)/[facility] Blood specimen (specimen) 05/28/2016 8:01 AM EST 05/28/2016 8:07 AM EST Narrative Resulting Agency Comment Spec In Lab Que Amaro MD HEMATOLOGY ORD ERABLES [facility] [place] [address] * (ABNORMAL) Magnesium (05/28/2016 8:01 AM EST) Magnesium 0.68(L) 0.69 - 1.07 mmol/L [facility] Blood specimen (specimen) 05/28/2016 8:01 AM EST 05/28/2016 8:07 AM EST Narrative Resulting Agency Comment Spec In Lab Que Amaro MD CHEMISTRY ROCHELLE JENNINGS Performing Organization Address City/[facility]/ZIP Co de Phone Number [facility] [place] [address] * Phosphorus (05/28/2016 8:01 AM EST) Pathologist [facility] Phosphorus 2.7 2.5 - 4.5 mg/dL [facility] Blood specimen (specimen) 05/28/2016 8:01 AM EST 05/28/2016 8:07 AM EST Narrative Resulting Agency Comment Spec In Lab Que Amaro MD CHEMISTRY ROCHELLE JENNINGS Performing Organization Address [facility] Co de Phone Number [facility] [place] [address] * Basic Metabolic Panel (non-fasting) (05/28/2016 8:01 AM EST) [facility] Glucose 181 65 - 199 mg/dL [facility] Comment:Diabetes: >=200 mg/d L plus symptoms Blood Urea Nitrogen 19 10 - 20 mg/dL [facility] Creatinine 1.16 0.80 - 1.50 mg/dL [facility] Comment: Please note that the pediatric reference intervals supplied above were not validated at [facility]. Results from pediatric patients should be interpreted in conjunction to the patient's age, height and muscle mass. Sodium 141 135 - 145 mmol/L [facility] Potassium 3.8 3.5 - 5.0 mmol/L [facility] Comment: Please note: ??Patients with WBC >100,000 may have falsely elevated Potassium levels. ??For accurate Potassium quantification in these patients send serum separator tube (gold top) for subsequent determinations. ??Contact the Clinical Chemistry Laboratory if there are any questions. Chloride 104 98 - 107 mmol/L [facility] Carbon Dioxide 23 22 - 31 mmol/L [facility] Anion Gap 14 5 - 15 mmol/L [facility] Calcium 9.4 8.5 - 10.5 mg/dL [facility] Est Glomerular Filtration Rate >60 >=60 [facility] Comment: This estimated [...] the following links into your internet browser. [email or web address] Blood specimen (specimen) 05/28/2016 8:01 AM EST 05/28/2016 8:07 AM EST Narrative Resulting Agency Comment Spec In Lab Que Amaro MD CHEMISTRY ROCHELLE JENNINGS [facility] [place] [address] * (ABNORMAL) Differential, Automated (05/27/2016 5:43 AM EST) Neutrophil % 87.9 % [facility] Neutrophil Absolute 11.88(H) 1.70 - 6.10 x10(3)/mc L [facility] LABORATORY Lymph % 5.0 % [facility] Lymphocytes Abs 0.7(L) 0.9 - 3.2 x10(3)/mc L [facility] Monocyte % 5.5 % [facility] Monocyte Abs 0.8 0.3 - 0.9 x10(3)/mc L [facility] Eos % 0.9 % [facility] Eosinophils Abs 0.1 0.0 - 0.4 x10(3)/mc L [facility] Basophil % 0.3 % [facility] Baso Absolute 0.0 0.0 - 0.1 x10(3)/mc L [facility] Immature Gran % 0.40 % [facility] Comment: Immature granulocytes(IG's)percentage and absolute count will include metamyelocytes, myelocytes, and promyelocytes. Blood smears from CBCs yielding IG's will be scanned manually for concordance. If this scan disagrees with the automated IG or if promyelocytes are noted, a manual differential will be performed. Immature Gran Absolute 0.06(H) 0.00 - 0.04 x10(3)/mc L [facility] Blood specimen (specimen) 05/27/2016 5:43 AM EST 05/27/2016 6:09 AM EST Narrative Resulting Agency Comment Spec In Lab Que Amaro MD HEMATOLOGY ORD ERABLES [facility] [place] [address] * (ABNORMAL) Hemogram (05/27/2016 5:43 AM EST) White Blood Cell 13.5(H) 4.0 - 9.5 x10(3)/mc L [facility] Red Blood Cell 4.10(L) 4.58 - 5.54 x10(6)/mc L [facility] Hemoglobin 13.1(L) 13.7 - 16.5 gm/dL [facility] Hematocrit 38.5(L) 40.5 - 48.5 % [facility] Mean Cell Volume 93.9(H) 82.9 - 93.1 fL [facility] Mean Cell Hemoglobin 32.0 27.5 - 32.1 pg [facility] Mean Cell Hemoglobin Concentration 34.0 32.0 - 35.7 gm/dL [facility] Platelet 246 145 - 357 x10(3)/mc L [facility] RDW Standard Deviation 44.5 36.0 - 45.0 [facility]ATORY RDW coefficient of variation 13.1 11.4 - 13.8 % [facility] Mean Platelet Volume 8.8 7.6 - 12.9 fL [facility] NRBC% auto 0.0 % [facility] NRBC Absolute 0.000 0.000 - 0.000 x10(3)/mc L [facility] Blood specimen (specimen) 05/27/2016 5:43 AM EST 05/27/2016 6:09 AM EST Narrative Resulting Agency Comment Spec In Lab Que Amaro MD HEMATOLOGY ORD ERABLES Performing Organization Address City/[facility] Co de Phone Number [facility] [place] [address] * Magnesium (05/27/2016 5:43 AM EST) Magnesium 0.73 0.69 - 1.07 mmol/L [facility] Blood specimen (specimen) 05/27/2016 5:43 AM EST 05/27/2016 6:09 AM EST Narrative Resulting Agency Comment Spec In Lab Que Amaro MD CHEMISTRY ORDE DICK Performing Organization Address [facility] de Phone Number [facility] [place] [address] * Phosphorus (05/27/2016 5:43 AM EST) Phosphorus 3.2 2.5 - 4.5 mg/dL [facility] Blood specimen (specimen) 05/27/2016 5:43 AM EST 05/27/2016 6:09 AM EST Narrative Resulting Agency Comment Spec In Lab Que Amaro MD CHEMISTRY ORDE RABLENORE Performing Organization Address [facility] Co de Phone Number [facility] [place] [address] * Basic Metabolic Panel (non-fasting) (05/27/2016 5:43 AM EST) Glucose 148 65 - 199 mg/dL [facility] Comment:Diabetes: >=200 mg/d L plus symptoms Blood Urea Nitrogen 17 10 - 20 mg/dL [facility] Creatinine 1.04 0.80 - 1.50 mg/dL [facility] Comment: Please note that the pediatric reference intervals supplied above were not validated at [facility]. Results from pediatric patients should be interpreted in conjunction to the patient's age, height and muscle mass. Sodium 141 135 - 145 mmol/L [facility] Potassium 3.8 3.5 - 5.0 mmol/L [facility] Comment: Please note: ??Patients with WBC >100,000 may have falsely elevated Potassium levels. ??For accurate Potassium quantification in these patients send serum separator tube (gold top) for subsequent determinations. ??Contact the Clinical Chemistry Laboratory if there are any questions. Chloride 102 98 - 107 mmol/L [facility] Carbon Dioxide 24 22 - 31 mmol/L [facility] Anion Gap 15 5 - 15 mmol/L [facility] Calcium 9.0 8.5 - 10.5 mg/dL [facility] Est Glomerular Filtration Rate >60 >=60 [facility] Comment: This estimated [...] the following links into your internet browser. [email or web address] Blood specimen (specimen) 05/27/2016 5:43 AM EST 05/27/2016 6:09 AM EST Narrative Resulting Agency Comment Spec In Lab Que Amaro MD CHEMISTRY ROCHELLE JENNINGS [facility] [place] [address] * Potassium (05/26/2016 4:57 PM EST) Potassium 4.5 3.5 - 5.0 mmol/L [facility] Lab Que Amaro MD CHEMISTRY ROCHELLE JENNINGS [facility] [place] [address] * XR Chest PA & Lateral (Generic) [...] [facility] Blood specimen (specimen) 05/26/2016 10:09 AM EST 05/26/2016 10:35 AM EST Comment:R AC Narrative Resulting Agency Comment Spec In Lab Que Amaro MD MICROBIOLOGY - BLOOD ORDERABLES Performing Organization Address [facility]/ZIP Co de Phone Number [facility] [place] [place] [address] * Blood culture (05/26/2016 10:04 AM EST) Blood Culture No growth at 5 days. [facility] Blood specimen (specimen) 05/26/2016 10:04 AM EST 05/26/2016 10:35 AM EST Comment:R H Narrative Resulting Agency Comment Spec In Lab Que Amaro MD MICROBIOLOGY - BLOOD ORDERABLES Performing Organization Address [facility]/ZIP Co de Phone Number [facility] [place] [address] * Urine Hold (05/26/2016 9:54 AM EST) Hold, Urine Sample in lab. [facility] Urine specimen (specimen) Urine / Unknown 05/26/2016 9:54 AM EST 05/26/2016 10:46 AM EST Que Amaro MD URINE ORDERABL ES Performing Organization Address [facility]/ZIP Co de Phone Number [facility] [place] [place] [address] * (ABNORMAL) Urinalysis without microscopic (05/26/2016 9:54 AM EST) Glucose, Urine Dipstick Negative Negative mg/dL [facility] Protein, Urine Dipstick 100(A) Negative mg/dL [facility] Bilirubin, [...] [facility] Blood, Urine Dipstick Moderate(A) Negative mg/dL [facility] Ketone, Urine Dipstick Negative Negative mg/dL [facility] Nitrite, Urine Dipstick Negative Negative [facility] Leukocytes, Urine Dipstick Moderate(A) Negative mcL [facility] Appearance, Urine Dipstick Clear Clear [facility] Specific [place] Urine Automated 1.027 1.002 - 1.030 [facility] Color, Urine Dipstick Muna Yellow [facility] Urine specimen (specimen) 05/26/2016 9:54 AM EST 05/26/2016 10:46 AM EST Narrative Resulting Agency Comment Spec In Lab Que Amaro MD URINE ORDERABL ES [facility] [place] [address] * Urine culture Indwelling Catheter Urine (05/26/2016 9:53 AM EST) Urine Culture No growth (Less than 1,000 cfu/ml). [facility] Urine specimen obtained via indwelling urinary catheter (specimen) 05/26/2016 9:53 AM EST 05/26/2016 10:56 AM EST Narrative Resulting Agency Comment Spec In Lab Que Amaro MD MICROBIOLOGY - GENERAL ORDERABLES Performing Organization Address City/[facility]/ZIP Co de Phone Number [facility] [place] [address] * Tacrolimus level (05/26/2016 7:35 AM EST) Pathologist [facility] Tacrolimus 5.3 ng/mL [facility] Comment: Trough therapeutic: ??5-15 ng/mL Performed by ultra-performance liquid chromatography tandem mass spectrometry (UPLCMS/MS). Blood specimen (specimen) 05/26/2016 7:35 AM EST 05/26/2016 11:12 AM EST Narrative Resulting Agency Comment Spec In Lab Que Amaro MD CHEMISTRY ORDE RABLES Performing Organization Address [facility] Co de Phone Number [facility] [place] [address] * (ABNORMAL) Differential, Automated (05/26/2016 4:30 AM EST) Pathologist [facility] Neutrophil % 80.7 % [facility] Neutrophil Absolute 10.51(H) 1.70 - 6.10 x10(3)/mc L [facility] Lymph % 10.3 % [facility] Lymphocytes Abs 1.3 0.9 - 3.2 x10(3)/mc L [facility] Monocyte % 6.5 % [facility] Monocyte Abs 0.8 0.3 - 0.9 x10(3)/mc L [facility] Eos % 1.6 % [facility] Eosinophils Abs 0.2 0.0 - 0.4 x10(3)/mc L [facility] Basophil % 0.4 % [facility] Baso Absolute 0.0 0.0 - 0.1 x10(3)/mc L [facility] Immature Gran % 0.50 % [facility] Comment: Immature granulocytes(IG's)percentage and absolute count will include metamyelocytes, myelocytes, and promyelocytes. Blood smears from CBCs yielding IG's will be scanned manually for concordance. If this scan disagrees with the automated IG or if promyelocytes are noted, a manual differential will be performed. Immature Gran Absolute 0.06(H) 0.00 - 0.04 x10(3)/ L [facility] Blood specimen (specimen) 05/26/2016 4:30 AM EST 05/26/2016 4:44 AM EST Narrative Resulting Agency Comment Spec In Lab Que Amaro MD HEMATOLOGY ORD ERABLES [facility] [place] [address] * (ABNORMAL) Hemogram (05/26/2016 4:30 AM EST) White Blood Cell 13.0(H) 4.0 - 9.5 x10(3)/[facility] LABORATORY Red Blood Cell 4.67 4.58 - 5.54 x10(6)/[facility] Hemoglobin 14.8 13.7 - 16.5 gm/dL [facility] Hematocrit 43.2 40.5 - 48.5 % [facility] Mean Cell Volume 92.5 82.9 - 93.1 fL [facility] Mean Cell Hemoglobin 31.7 27.5 - 32.1 pg [facility] Mean Cell Hemoglobin Concentration 34.3 32.0 - 35.7 gm/dL [facility] Platelet 304 145 - 357 x10(3)/[facility]ORAT[facility] RDW Standard Deviation 43.0 36.0 - 45.0 [facility] RDW coefficient of variation 12.9 11.4 - 13.8 % [facility] Mean Platelet Volume 8.6 7.6 - 12.9 [facility] NRBC% auto 0.0 % [facility] NRBC Absolute 0.000 0.000 - 0.000 x10(3)/ L [facility] Blood specimen (specimen) 05/26/2016 4:30 AM EST 05/26/2016 4:44 AM EST Narrative Resulting Agency Comment Spec In Lab Que Amaro MD HEMATOLOGY ORD ERABLES Performing Organization Address [facility] Co de Phone Number [facility] [place] [place] [address] * Magnesium (05/26/2016 4:30 AM EST) Magnesium 0.82 0.69 - 1.07 mmol/L [facility] Blood specimen (specimen) 05/26/2016 4:30 AM EST 05/26/2016 4:44 AM EST Narrative Resulting Agency Comment Spec In Lab Que Amaro MD CHEMISTRY ROCHELLE JENNINGS Performing Organization Address [facility] de Phone Number [facility] [place] [place] [address] * Phosphorus (05/26/2016 4:30 AM EST) Phosphorus 3.0 2.5 - 4.5 mg/dL [facility] Blood specimen (specimen) 05/26/2016 4:30 AM EST 05/26/2016 4:44 AM EST Narrative Resulting Agency Comment Spec In Lab Que Amaro MD CHEMISTRY ORDBhargav JENNINGS Performing Organization Address [facility] Co de Phone Number [facility] [place] [address] * (ABNORMAL) Basic Metabolic Panel (non-fasting) (05/26/2016 4:30 AM EST) Glucose 224(H) 65 - 199 mg/dL [facility] Comment:Diabetes: >=200 mg/d L plus symptoms Blood Urea Nitrogen 20 10 - 20 mg/dL [facility] Comment:result rechecked-llu Creatinine 1.32 0.80 - 1.50 mg/dL [facility] Comment: Please note that the pediatric reference intervals supplied above were not validated at [facility]. Results from pediatric patients should be interpreted in conjunction to the patient's age, height and muscle mass. Sodium 143 135 - 145 mmol/L [facility] Potassium 3.7 3.5 - 5.0 mmol/L [facility] Comment: Please note: ??Patients with WBC >100,000 may have falsely elevated Potassium levels. ??For accurate Potassium quantification in these patients send serum separator tube (gold top) for subsequent determinations. ??Contact the Clinical Chemistry Laboratory if there are any questions. Chloride 100 98 - 107 mmol/L [facility] Carbon Dioxide 23 22 - 31 mmol/L [facility] Anion Gap 20(H) 5 - 15 mmol/L [facility] Calcium 9.8 8.5 - 10.5 mg/dL [facility] Comment:result rechecked-llu Est Glomerular Filtration Rate 54(L) >=60 [facility] Comment: This estimated [...] the following links into your internet browser. [email or web address] Blood specimen (specimen) 05/26/2016 4:30 AM EST 05/26/2016 4:44 AM EST Narrative Resulting Agency Comment Spec In Lab Que Amaro MD CHEMISTRY ROCHELLE JENNINGS [facility] [place] [address] * (ABNORMAL) Basic Metabolic Panel (non-fasting) (05/25/2016 4:38 PM EST) Glucose 189 65 - 199 mg/dL [facility] Comment:Diabetes: >=200 mg/d L plus symptoms Blood Urea Nitrogen 12 10 - 20 mg/dL [facility] Creatinine 1.10 0.80 - 1.50 mg/dL [facility] Comment: Please note that the pediatric reference intervals supplied above were not validated at [facility]. Results from pediatric patients should be interpreted in conjunction to the patient's age, height and muscle mass. Sodium 140 135 - 145 mmol/L [facility] Potassium 4.0 3.5 - 5.0 mmol/L [facility] Comment: Please note: ??Patients with WBC >100,000 may have falsely elevated Potassium levels. ??For accurate Potassium quantification in these patients send serum separator tube (gold top) for subsequent determinations. ??Contact the Clinical Chemistry Laboratory if there are any questions. Chloride 99 98 - 107 mmol/L [facility] Carbon Dioxide 25 22 - 31 mmol/L [facility] Anion Gap 16(H) 5 - 15 mmol/L [facility] Calcium 9.2 8.5 - 10.5 mg/dL [facility] Est Glomerular Filtration Rate >60 >=60 [facility] Comment: This estimated [...] the following links into your internet browser. [email or web address] Blood specimen (specimen) 05/25/2016 4:38 PM EST 05/25/2016 4:44 PM EST Narrative Resulting Agency Comment Spec In Lab Que Amaro MD CHEMISTRY ROCHELLE JENNINGS [facility] Organization Address City/State/ZIP Co de Phone Number [facility] [place] [address] * Magnesium (05/25/2016 4:38 PM EST) Magnesium 0.74 0.69 - 1.07 mmol/L [facility] Blood specimen (specimen) 05/25/2016 4:38 PM EST 05/25/2016 4:44 PM EST Narrative Resulting Agency Comment Spec In Lab Que Amaro MD CHEMISTRY ROCHELLE JENNINGS [facility] [place] [address] * XR Abdomen 1 view (Generic) (05/25/2016 [...] with medication in the gut. There is [id number]-ra-jafuujth gaseous distention of the large bowel most [...] correspond withmedication in the gut. There is aaus-kr-zbpsyrir gaseous distention of the largebowel most suggestive of an adynamic ileus. No free air is seen. Bony structuresappear intact. IMPRESSION Increasing mild to moderate gaseous distention throughout the large bowelmost suggestive of an adynamic or reactive ileus Que Amaro MD IMG DX ORDERAB LES * (ABNORMAL) Magnesium (05/25/2016 4:47 AM EST) Pathologist [facility] Magnesium 0.61(L) 0.69 - 1.07 mmol/L [facility] Blood specimen (specimen) 05/25/2016 4:47 AM EST 05/25/2016 4:59 AM EST Narrative Resulting Agency Comment Spec In Lab Que Amaro MD CHEMISTRY ORDBhargav JENNINGS Performing Organization Address [facility] Co de Phone Number [facility] [place] [address] * Phosphorus (05/25/2016 4:47 AM EST) [facility] Phosphorus 2.5 2.5 - 4.5 mg/dL [facility] Blood specimen (specimen) 05/25/2016 4:47 AM EST 05/25/2016 4:59 AM EST Narrative Resulting Agency Comment Spec In Lab Que Amaro MD CHEMISTRY ORDBhargav JENNINGS Performing Organization Address [facility]/ZIP Co de Phone Number [facility] [place] [address] * Basic Metabolic Panel (non-fasting) (05/25/2016 4:47 AM EST) [facility] Glucose 159 65 - 199 mg/dL [facility] Comment:Diabetes: >=200 mg/d L plus symptoms Blood Urea Nitrogen 10 10 - 20 mg/dL [facility] Creatinine 0.98 0.80 - 1.50 mg/dL [facility] Comment: Please note that the pediatric reference intervals supplied above were not validated at [facility]. Results from pediatric patients should be interpreted [...] questions. Chloride 98 98 - 107 mmol/L [facility] Carbon Dioxide 27 22 - 31 mmol/L [facility] Anion Gap 13 5 - 15 mmol/L [facility] Calcium 8.7 8.5 - 10.5 mg/dL [facility] Est Glomerular Filtration Rate >60 >=60 [facility] Comment: This estimated [...] the following links into your internet browser. [email or web address] Blood specimen (specimen) 05/25/2016 4:47 AM EST 05/25/2016 4:59 AM EST Narrative Resulting Agency Comment Spec In Lab Que Amaro MD CHEMISTRY ROCHELLE JENNINGS [facility] [place] [address] * (ABNORMAL) Differential, Automated (05/25/2016 4:47 AM EST) Neutrophil % 83.2 % [facility] Neutrophil Absolute 8.21(H) 1.70 - 6.10 x10(3)/[facility] Lymph % 9.3 % [facility] Lymphocytes Abs 0.9 0.9 - 3.2 x10(3)/ L [facility] Monocyte % 5.4 % [facility] Monocyte Abs 0.5 0.3 - 0.9 x10(3)/[facility] Eos % 1.2 % [facility] Eosinophils Abs 0.1 0.0 - 0.4 x10(3)/[facility] Basophil % 0.4 % [facility] Baso Absolute 0.0 0.0 - 0.1 x10(3)/[facility] Immature Gran % 0.50 % [facility] Comment: Immature granulocytes(IG's)percentage and absolute count will include metamyelocytes, myelocytes, and promyelocytes. Blood smears from CBCs yielding IG's will be scanned manually for concordance. If this scan disagrees with the automated IG or if promyelocytes are noted, a manual differential will be performed. Immature Gran Absolute 0.05(H) 0.00 - 0.04 x10(3)/[facility] Blood specimen (specimen) 05/25/2016 4:47 AM EST 05/25/2016 4:59 AM EST Narrative Resulting Agency Comment Spec In Lab Que Amaro MD HEMATOLOGY ORD ERABLES [facility] [place] [address] * (ABNORMAL) Hemogram (05/25/2016 4:47 AM EST) White Blood Cell 9.9(H) 4.0 - 9.5 x10(3)/[facility] Red Blood Cell 4.35(L) 4.58 - 5.54 x10(6)/[facility] Hemoglobin 14.2 13.7 - 16.5 gm/dL [facility] Hematocrit 40.3(L) 40.5 - 48.5 % [facility] Mean Cell Volume 92.6 82.9 - 93.1 fL [facility] Mean Cell Hemoglobin 32.6(H) 27.5 - 32.1 pg [facility] Mean Cell Hemoglobin Concentration 35.2 32.0 - 35.7 gm/dL [facility] Platelet 247 145 - 357 x10(3)/mc L [facility] RDW Standard Deviation 42.3 36.0 - 45.0 fL [facility] RDW coefficient of variation 12.5 11.4 - 13.8 % [facility] Mean Platelet Volume 8.7 7.6 - 12.9 fL [facility] NRBC% auto 0.0 % [facility] NRBC Absolute 0.000 0.000 - 0.000 x10(3)/mc L [facility] Blood specimen (specimen) 05/25/2016 4:47 AM EST 05/25/2016 4:59 AM EST Narrative Resulting Agency Comment Spec In Lab Que Amaro MD HEMATOLOGY ORD ERABLES Performing Organization Address City/State/[facility] Co de Phone Number [facility] [place] [address] * (ABNORMAL) Differential, Automated (05/24/2016 4:45 AM EST) Neutrophil % 75.5 % [facility] Neutrophil Absolute 6.34(H) 1.70 - 6.10 x10(3)/mc L [facility] Lymph % 14.6 % [facility] Lymphocytes Abs 1.2 0.9 - 3.2 x10(3)/mc L [facility] Monocyte % 6.0 % [facility] Monocyte Abs 0.5 0.3 - 0.9 x10(3)/mc L [facility] Eos % 2.9 % [facility] Eosinophils Abs 0.2 0.0 - 0.4 x10(3)/[facility] Basophil % 0.6 % [facility] Baso Absolute 0.0 0.0 - 0.1 x10(3)/[facility] Immature Gran % 0.40 % [facility] Comment: Immature granulocytes(IG's)percentage and absolute count will include metamyelocytes, myelocytes, and promyelocytes. Blood smears from CBCs yielding IG's will be scanned manually for concordance. If this scan disagrees with the automated IG or if promyelocytes are noted, a manual differential will be performed. Immature Gran Absolute 0.03 0.00 - 0.04 x10(3)/[facility] Blood specimen (specimen) 05/24/2016 4:45 AM EST 05/24/2016 5:06 AM EST Narrative Resulting Agency Comment Spec In Lab Que Amaro MD HEMATOLOGY ORD ERABLES [facility] [place] [address] * (ABNORMAL) Hemogram (05/24/2016 4:45 AM EST) White Blood Cell 8.4 4.0 - 9.5 x10(3)/ L [facility] Red Blood Cell 3.96(L) 4.58 - 5.54 x10(6)/ L [facility] Hemoglobin 12.7(L) 13.7 - 16.5 gm/dL [facility] Hematocrit 36.6(L) 40.5 - 48.5 % [facility] Mean Cell Volume 92.4 82.9 - 93.1 fL [facility] Mean Cell Hemoglobin 32.1 27.5 - 32.1 pg [facility] Mean Cell Hemoglobin Concentration 34.7 32.0 - 35.7 gm/dL [facility] Platelet 211 145 - 357 x10(3)/mc L [facility] RDW Standard Deviation 42.5 36.0 - 45.0 fL [facility] RDW coefficient of variation 12.5 11.4 - 13.8 % [facility] Mean Platelet Volume 8.9 7.6 - 12.9 fL [facility] NRBC% auto 0.0 % [facility] NRBC Absolute 0.000 0.000 - 0.000 x10(3)/mc L [facility] Blood specimen (specimen) 05/24/2016 4:45 AM EST 05/24/2016 5:06 AM EST Narrative Resulting Agency Comment Spec In Lab Que Amaro MD HEMATOLOGY ORD ERABLES Performing Organization Address City/[facility]/ZIP Co de Phone Number [facility] [place] [address] * (ABNORMAL) Magnesium (05/24/2016 4:45 AM EST) Magnesium 0.59(L) 0.69 - 1.07 mmol/L [facility] Blood specimen (specimen) 05/24/2016 4:45 AM EST 05/24/2016 5:06 AM EST Narrative Resulting Agency Comment Spec In Lab Que Amaro MD CHEMISTRY ORDBhargav JENNINGS [facility] [place] [address] * Phosphorus (05/24/2016 4:45 AM EST) Phosphorus 2.6 2.5 - 4.5 mg/dL [facility] Blood specimen (specimen) 05/24/2016 4:45 AM EST 05/24/2016 5:06 AM EST Narrative Resulting Agency Comment Spec In Lab Que Amaro MD CHEMISTRY ORDBhargav JENNINGS [facility] [place] [address] * Basic Metabolic Panel (non-fasting) (05/24/2016 4:45 AM EST) Glucose 128 65 - 199 mg/dL [facility] Comment:Diabetes: >=200 mg/d L plus symptoms Blood Urea Nitrogen 10 10 - 20 mg/dL [facility] Creatinine 1.04 0.80 - 1.50 mg/dL [facility] Comment: Please note that the pediatric reference intervals supplied above were not validated at [facility]. Results from pediatric patients should be interpreted in conjunction to the patient's age, height and muscle mass. Sodium 139 135 - 145 mmol/L [facility] Potassium 3.6 3.5 - 5.0 mmol/L [facility] Comment: Please note: ??Patients with WBC >100,000 may have falsely elevated Potassium levels. ??For accurate Potassium quantification in these patients send serum separator tube (gold top) for subsequent determinations. ??Contact the Clinical Chemistry Laboratory if there are any questions. Chloride 101 98 - 107 mmol/L [facility] Carbon Dioxide 25 22 - 31 mmol/L [facility] Anion Gap 13 5 - 15 mmol/L [facility] Calcium 8.5 8.5 - 10.5 mg/dL [facility] Est Glomerular Filtration Rate >60 >=60 [facility] Comment: This estimated [...] the following links into your internet browser. [email or web address] Blood specimen (specimen) 05/24/2016 4:45 AM EST 05/24/2016 5:06 AM EST Narrative Resulting Agency Comment Spec In Lab Que Amaro MD CHEMISTRY ROCHELLE JENNINGS Performing Organization Address [facility] Co de Phone Number [facility] [place] [address] * Tacrolimus level (05/23/2016 7:50 AM EST) Pathologist [facility] Tacrolimus 5.4 ng/mL [facility] Comment: Trough therapeutic: ??5-15 ng/mL Performed by ultra-performance liquid chromatography tandem mass spectrometry (UPLCMS/MS). Blood specimen (specimen) 05/23/2016 7:50 AM EST 05/23/2016 11:06 AM EST Narrative Resulting Agency Comment Spec In Lab Que Amaro MD CHEMISTRY ROCHELLE JENNINGS Performing Organization Address [facility] de Phone Number [facility] [place] [address] * (ABNORMAL) Differential, Automated (05/23/2016 5:43 AM EST) Pathologist [facility] Neutrophil % 72.3 % [facility] Neutrophil Absolute 7.21(H) 1.70 - 6.10 x10(3)/mc L [facility] Lymph % 20.0 % [facility] Lymphocytes Abs 2.0 0.9 - 3.2 x10(3)/mc L [facility] Monocyte % 5.4 % [facility] Monocyte Abs 0.5 0.3 - 0.9 x10(3)/mc L [facility] Eos % 1.2 % [facility] Eosinophils Abs 0.1 0.0 - 0.4 x10(3)/mc L [facility] Basophil % 0.6 % [facility] Baso Absolute 0.1 0.0 - 0.1 x10(3)/mc L [facility] Immature Gran % 0.50 % [facility] Comment: Immature granulocytes(IG's)percentage and absolute count will include metamyelocytes, myelocytes, and promyelocytes. Blood smears from CBCs yielding IG's will be scanned manually for concordance. If this scan disagrees with the automated IG or if promyelocytes are noted, a manual differential will be performed. Immature Gran Absolute 0.05(H) 0.00 - 0.04 x10(3)/mc L [facility] Blood specimen (specimen) 05/23/2016 5:43 AM EST 05/23/2016 5:51 AM EST Narrative Resulting Agency Comment Spec In Lab Que Amaro MD HEMATOLOGY ORD ERABLES [facility] [place] [address] * (ABNORMAL) Hemogram (05/23/2016 5:43 AM EST) White Blood Cell 10.0(H) 4.0 - 9.5 x10(3)/mc L [facility] Red Blood Cell 4.22(L) 4.58 - 5.54 x10(6)/mc L [facility] Hemoglobin 13.9 13.7 - 16.5 gm/dL [facility] Hematocrit 40.7 40.5 - 48.5 % [facility] Mean Cell Volume 96.4(H) 82.9 - 93.1 fL [facility] Mean Cell Hemoglobin 32.9(H) 27.5 - 32.1 pg [facility] Mean Cell Hemoglobin Concentration 34.2 32.0 - 35.7 gm/dL [facility] Platelet 211 145 - 357 x10(3)/mc L [facility] RDW Standard Deviation 44.1 36.0 - 45.0 fL [facility] RDW coefficient of variation 12.5 11.4 - 13.8 % [facility] Mean Platelet Volume 8.9 7.6 - 12.9 fL [facility] NRBC% auto 0.0 % [facility] NRBC Absolute 0.000 0.000 - 0.000 x10(3)/mc L [facility] Blood specimen (specimen) 05/23/2016 5:43 AM EST 05/23/2016 5:51 AM EST Narrative Resulting Agency Comment Spec In Lab Que Amaro MD HEMATOLOGY ORD ERABLES Performing Organization Address City/[facility] Co de Phone Number [facility] [place] [address] * (ABNORMAL) Magnesium (05/23/2016 5:37 AM EST) Magnesium 0.55(L) 0.69 - 1.07 mmol/L [facility] Blood specimen (specimen) 05/23/2016 5:37 AM EST 05/23/2016 5:51 AM EST Narrative Resulting Agency Comment Spec In Lab Que Amaro MD CHEMISTRY ORDBhargav JENNINGS Performing Organization Address [facility] Co de Phone Number [facility] [place] [address] * (ABNORMAL) Phosphorus (05/23/2016 5:37 AM EST) Phosphorus 2.2(L) 2.5 - 4.5 mg/dL [facility] Blood specimen (specimen) 05/23/2016 5:37 AM EST 05/23/2016 5:51 AM EST Narrative Resulting Agency Comment Spec In Lab Que Amaro MD CHEMISTRY ORDBhargav JENNINGS Performing Organization Address [facility] Co de Phone Number [facility] [place] [address] * (ABNORMAL) Basic Metabolic Panel (non-fasting) (05/23/2016 5:37 AM EST) Glucose 136 65 - 199 mg/dL [facility] Comment:Diabetes: >=200 mg/d L plus symptoms Blood Urea Nitrogen 14 10 - 20 mg/dL [facility] Creatinine 1.24 0.80 - 1.50 mg/dL [facility] Comment: Please note that the pediatric reference intervals supplied above were not validated at [facility]. Results from pediatric patients should be interpreted in conjunction to the patient's age, height and muscle mass. Sodium 140 135 - 145 mmol/L [facility] Potassium 3.7 3.5 - 5.0 mmol/L [facility] Comment: Please note: ??Patients with WBC >100,000 may have falsely elevated Potassium levels. ??For accurate Potassium quantification in these patients send serum separator tube (gold top) for subsequent determinations. ??Contact the Clinical Chemistry Laboratory if there are any questions. Chloride 101 98 - 107 mmol/L [facility] Carbon Dioxide 25 22 - 31 mmol/L [facility] Anion Gap 14 5 - 15 mmol/L [facility] Calcium 8.9 8.5 - 10.5 mg/dL [facility] Est Glomerular Filtration Rate 58(L) >=60 [facility] Comment: This estimated [...] the following links into your internet browser. [email or web address] Blood specimen (specimen) 05/23/2016 5:37 AM EST 05/23/2016 5:51 AM EST Narrative Resulting Agency Comment Spec In Lab Que Amaro MD CHEMISTRY ROCHELLE JENNINGS [facility] Organization Address City/State/ZIP Co de Phone Number [facility] [place] [address] * Vancomycin, trough (05/22/2016 7:29 AM EST) Vancomycin, Trough 17.4 mg/L [facility] Comment: Therapeutic range for [...] Lab Que Amaro MD CHEMISTRY ROCHELLE JENNINGS [facility] [place] [address] * (ABNORMAL) Differential, Automated (05/22/2016 7:29 AM EST) Neutrophil % 81.7 % [facility] Neutrophil Absolute 8.59(H) 1.70 - 6.10 x10(3)/mc L [facility] Lymph % 11.3 % [facility] Lymphocytes Abs 1.2 0.9 - 3.2 x10(3)/mc L [facility] Monocyte % 6.3 % [facility] Monocyte Abs 0.7 0.3 - 0.9 x10(3)/mc L [facility] Eos % 0.1 % [facility] Eosinophils Abs 0.0 0.0 - 0.4 x10(3)/mc L [facility] Basophil % 0.2 % [facility] Baso Absolute 0.0 0.0 - 0.1 x10(3)/mc L [facility] Immature Gran % 0.40 % [facility] Comment: Immature granulocytes(IG's)percentage and absolute count will include metamyelocytes, myelocytes, and promyelocytes. Blood smears from CBCs yielding IG's will be scanned manually for concordance. If this scan disagrees with the automated IG or if promyelocytes are noted, a manual differential will be performed. Immature Gran Absolute 0.04 0.00 - 0.04 x10(3)/mc L [facility] Blood specimen (specimen) 05/22/2016 7:29 AM EST 05/22/2016 8:02 AM EST Narrative Resulting Agency Comment Spec In Lab Que Amaro MD HEMATOLOGY ORD ERABLES [facility] [place] [address] * (ABNORMAL) Hemogram (05/22/2016 7:29 AM EST) White Blood Cell 10.5(H) 4.0 - 9.5 x10(3)/mc L [facility] Red Blood Cell 3.92(L) 4.58 - 5.54 x10(6)/mc L [facility] Hemoglobin 12.8(L) 13.7 - 16.5 gm/dL [facility] Hematocrit 36.7(L) 40.5 - 48.5 % [facility] Mean Cell Volume 93.6(H) 82.9 - 93.1 fL [facility] Mean Cell Hemoglobin 32.7(H) 27.5 - 32.1 pg [facility] Mean Cell Hemoglobin Concentration 34.9 32.0 - 35.7 gm/dL [facility] Platelet 210 145 - 357 x10(3)/mc L [facility] RDW Standard Deviation 43.1 36.0 - 45.0 [facility] RDW coefficient of variation 12.5 11.4 - 13.8 % [facility] Mean Platelet Volume 8.9 7.6 - 12.9 fL [facility] NRBC% auto 0.0 % [facility] NRBC Absolute 0.000 0.000 - 0.000 x10(3)/mc L [facility] Blood specimen (specimen) 05/22/2016 7:29 AM EST 05/22/2016 8:02 AM EST Narrative Resulting Agency Comment Spec In Lab Que Amaro MD HEMATOLOGY ORD ERABLES Performing Organization Address City/[facility]/ZIP Co de Phone Number [facility] [place] [address] * (ABNORMAL) Magnesium (05/22/2016 7:29 AM EST) Magnesium 0.65(L) 0.69 - 1.07 mmol/L [facility] Blood specimen (specimen) 05/22/2016 7:29 AM EST 05/22/2016 8:02 AM EST Narrative Resulting Agency Comment Spec In Lab Que Amaro MD CHEMISTRY ORDBhargav JENNINGS Performing Organization Address [facility] Co de Phone Number [facility] [place] [address] * Phosphorus (05/22/2016 7:29 AM EST) Phosphorus 2.6 2.5 - 4.5 mg/dL [facility] Blood specimen (specimen) 05/22/2016 7:29 AM EST 05/22/2016 8:02 AM EST Narrative Resulting Agency Comment Spec In Lab Que Amaro MD CHEMISTRY ORDBhargav JENNINGS Performing Organization Address City/[facility]/ZIP Co de Phone Number [facility] [place] [address] * (ABNORMAL) Basic Metabolic Panel (non-fasting) (05/22/2016 7:29 AM EST) Glucose 159 65 - 199 mg/dL [facility] Comment:Diabetes: >=200 mg/d L plus symptoms Blood Urea Nitrogen 19 10 - 20 mg/dL [facility] Creatinine 1.37 0.80 - 1.50 mg/dL [facility] Comment: Please note that the pediatric reference intervals supplied above were not validated at [facility]. Results from pediatric patients should be interpreted in conjunction to the patient's age, height and muscle mass. Sodium 137 135 - 145 mmol/L [facility] Potassium 4.0 3.5 - 5.0 mmol/L [facility] Comment: Please note: ??Patients with WBC >100,000 may have falsely elevated Potassium levels. ??For accurate Potassium quantification in these patients send serum separator tube (gold top) for subsequent determinations. ??Contact the Clinical Chemistry Laboratory if there are any questions. Chloride 101 98 - 107 mmol/L [facility] Carbon Dioxide 22 22 - 31 mmol/L [facility] Anion Gap 14 5 - 15 mmol/L [facility] Calcium 8.9 8.5 - 10.5 mg/dL [facility] Est Glomerular Filtration Rate 52(L) >=60 [facility] Comment: This estimated [...] the following links into your internet browser. [email or web address] Blood specimen (specimen) 05/22/2016 7:29 AM EST 05/22/2016 8:02 AM EST Narrative Resulting Agency Comment Spec In Lab Que Amaro MD CHEMISTRY ROCHELLE JENNINGS [facility] [place] [address] * (ABNORMAL) Urinalysis with reflex Culture (05/21/2016 10:52 AM EST) Glucose, Urine Dipstick Negative Negative mg/dL [facility] Protein, Urine Dipstick 100(A) Negative mg/dL [facility] Bilirubin, [...] CENTER [facility] Leukocytes, Urine Dipstick Large(A) Negative [facility] Appearance, Urine Dipstick Clear Clear [facility] Specific [place] Urine Automated 1.021 1.002 - 1.030 [facility] Color, Urine Dipstick Yellow Yellow [facility] RBC, Urine 33(H) 0 - 3 /HPF [facility] WBC, Urine 25(H) 0 - 3 /HPF [facility] Bacteria, Urine Rare(A) None /HPF [facility] Squamous Epithelial Cells, Urine <1 <=4 /HPF [facility] Reflex to Culture Dup Culture [facility] Urine specimen obtained by clean catch procedure (specimen) 05/21/2016 10:52 AM EST 05/21/2016 10:59 AM EST Narrative Resulting Agency Comment Spec In Lab Que Amaro MD URINE ORDERABL ES [facility] [place] [address] * Urine culture Nephrostomy Urine (05/21/2016 10:51 AM EST) Urine Culture No growth (Less than 1,000 cfu/ml). [facility] Urine specimen obtained by clean catch procedure (specimen) 05/21/2016 10:51 AM EST 05/22/2016 4:32 PM EST Narrative Resulting Agency Comment Spec In Lab Que Amaro MD MICROBIOLOGY - GENERAL ORDERABLES Performing Organization Address [facility] de Phone Number [facility] [place] [address] * Tacrolimus level (05/21/2016 7:52 AM EST) Tacrolimus 6.6 ng/mL [facility] Comment: Trough therapeutic: ??5-15 ng/mL Performed by ultra-performance liquid chromatography tandem mass spectrometry (UPLCMS/MS). Blood specimen (specimen) 05/21/2016 7:52 AM EST 05/21/2016 10:42 AM EST Narrative Resulting Agency Comment Spec In Lab Que Amaro MD CHEMISTRY ORDE RABLES Performing Organization Address [facility] de Phone Number [facility] [place] [address] * XR Abdomen 1 view (Generic) (05/21/2016 [...] 5:53 AM EST) Neutrophil % 90.9 % [facility] Neutrophil Absolute 10.31(H) 1.70 - 6.10 x10(3)/mc L [facility] Lymph % 4.5 % [facility] Lymphocytes Abs 0.5(L) 0.9 - 3.2 x10(3)/mc L [facility] Monocyte % 4.0 % [facility] Monocyte Abs 0.4 0.3 - 0.9 x10(3)/mc L [facility] Eos % 0.0 % [facility] Eosinophils Abs 0.0 0.0 - 0.4 x10(3)/mc L [facility] Basophil % 0.2 % [facility] Baso Absolute 0.0 0.0 - 0.1 x10(3)/mc L [facility] Immature Gran % 0.40 % [facility] Comment: Immature granulocytes(IG's)percentage and absolute count will include metamyelocytes, myelocytes, and promyelocytes. Blood smears from CBCs yielding IG's will be scanned manually for concordance. If this scan disagrees with the automated IG or if promyelocytes are noted, a manual differential will be performed. Immature Gran Absolute 0.04 0.00 - 0.04 x10(3)/ L [facility] Blood specimen (specimen) 05/21/2016 5:53 AM EST 05/21/2016 6:15 AM EST Narrative Resulting Agency Comment Spec In Lab Que Amaro MD HEMATOLOGY ORD ERABLES [facility] [place] [address] * (ABNORMAL) Hemogram (05/21/2016 5:53 AM EST) White Blood Cell 11.3(H) 4.0 - 9.5 x10(3)/[facility] Red Blood Cell 4.15(L) 4.58 - 5.54 x10(6)/[facility] Hemoglobin 13.5(L) 13.7 - 16.5 gm/dL [facility] Hematocrit 37.8(L) 40.5 - 48.5 % [facility] Mean Cell Volume 91.1 82.9 - 93.1 [facility] Mean Cell Hemoglobin 32.5(H) 27.5 - 32.1 pg [facility] Mean Cell Hemoglobin Concentration 35.7 32.0 - 35.7 gm/dL [facility] Platelet 222 145 - 357 x10(3)/[facility] RDW Standard Deviation 40.7 36.0 - 45.0 [facility] RDW coefficient of variation 12.2 11.4 - 13.8 % [facility] Mean Platelet Volume 8.8 7.6 - 12.9 [facility] NRBC% auto 0.0 % [facility] NRBC Absolute 0.000 0.000 - 0.000 x10(3)/ L [facility] Blood specimen (specimen) 05/21/2016 5:53 AM EST 05/21/2016 6:15 AM EST Narrative Resulting Agency Comment Spec In Lab Que Amaro MD HEMATOLOGY ORD ERABLES Performing Organization Address [facility] de Phone Number [facility] [place] [address] * (ABNORMAL) Magnesium (05/21/2016 5:53 AM EST) Magnesium 0.51(L) 0.69 - 1.07 mmol/L [facility] Blood specimen (specimen) 05/21/2016 5:53 AM EST 05/21/2016 6:15 AM EST Narrative Resulting Agency Comment Spec In Lab Que Amaro MD CHEMISTRY ROCHELLE JENNINGS Performing Organization Address [facility] Phone Number [facility] [place] [address] * (ABNORMAL) Phosphorus (05/21/2016 5:53 AM EST) Phosphorus 2.4(L) 2.5 - 4.5 mg/dL [facility] Blood specimen (specimen) 05/21/2016 5:53 AM EST 05/21/2016 6:15 AM EST Narrative Resulting Agency Comment Spec In Lab Que Amaro MD CHEMISTRY ORDBhargav JENNINGS Performing Organization Address [facility] Phone Number [facility] [place] [address] * (ABNORMAL) Basic Metabolic Panel (non-fasting) (05/21/2016 5:53 AM EST) Glucose 269(H) 65 - 199 mg/dL [facility] Comment:Diabetes: >=200 mg/d L plus symptoms Blood Urea Nitrogen 17 10 - 20 mg/dL [facility] Creatinine 1.27 0.80 - 1.50 mg/dL [facility] Comment: Please note that the pediatric reference intervals supplied above were not validated at [facility]. Results from pediatric patients should be interpreted in conjunction to the patient's age, height and muscle mass. Sodium 136 135 - 145 mmol/L [facility] Potassium 4.5 3.5 - 5.0 mmol/L [facility] Comment: Please note: ??Patients with WBC >100,000 may have falsely elevated Potassium levels. ??For accurate Potassium quantification in these patients send serum separator tube (gold top) for subsequent determinations. ??Contact the Clinical Chemistry Laboratory if there are any questions. Chloride 101 98 - 107 mmol/L [facility] Carbon Dioxide 18(L) 22 - 31 mmol/L [facility] Anion Gap 17(H) 5 - 15 mmol/L [facility] Calcium 8.4(L) 8.5 - 10.5 mg/dL [facility] Est Glomerular Filtration Rate 57(L) >=60 [facility] Comment: This estimated [...] the following links into your internet browser. [email or web address] Blood specimen (specimen) 05/21/2016 5:53 AM EST 05/21/2016 6:15 AM EST Narrative Resulting Agency Comment Spec In Lab Que Amaro MD CHEMISTRY ROCHELLE JENNINGS [facility] [place] [address] * US Renal Transplant Left (05/20/2016 10:18 [...] 10:15 PM EST) Neutrophil % 92.5 % [facility] [facility] Neutrophil Absolute 9.41(H) 1.70 - 6.10 x10(3)/mc L [facility] Lymph % 4.3 % [facility] Lymphocytes Abs 0.4(L) 0.9 - 3.2 x10(3)/mc L [facility] Monocyte % 2.3 % [facility] Monocyte Abs 0.2(L) 0.3 - 0.9 x10(3)/mc L [facility] Eos % 0.1 % [facility] Eosinophils Abs 0.0 0.0 - 0.4 x10(3)/ L [facility] Basophil % 0.3 % [facility] Baso Absolute 0.0 0.0 - 0.1 x10(3)/[facility] LABORATORY Immature Gran % 0.50 % [facility] Comment: Immature granulocytes(IG's)percentage and absolute count will include metamyelocytes, myelocytes, and promyelocytes. Blood smears from CBCs yielding IG's will be scanned manually for concordance. If this scan disagrees with the automated IG or if promyelocytes are noted, a manual differential will be performed. Immature Gran Absolute 0.05(H) 0.00 - 0.04 x10(3)/[facility] LABORATORY Blood specimen (specimen) 05/20/2016 10:15 PM EST 05/20/2016 10:25 PM EST Narrative Resulting Agency Comment Spec In Lab Que Amaro MD HEMATOLOGY ORD ERABLES [facility] [place] [address] * (ABNORMAL) Hemogram (05/20/2016 10:15 PM EST) White Blood Cell 10.2(H) 4.0 - 9.5 x10(3)/[facility] LABORATORY Red Blood Cell 4.36(L) 4.58 - 5.54 x10(6)/[facility] LABORATORY Hemoglobin 13.9 13.7 - 16.5 gm/dL [facility] Hematocrit 40.6 40.5 - 48.5 % [facility] Mean Cell Volume 93.1 82.9 - 93.1 fL [facility] Mean Cell Hemoglobin 31.9 27.5 - 32.1 pg [facility] Mean Cell Hemoglobin Concentration 34.2 32.0 - 35.7 gm/dL [facility] Platelet 214 145 - 357 x10(3)/ L [facility] RDW Standard Deviation 42.1 36.0 - 45.0 [facility] LABORATORY RDW coefficient of variation 12.2 11.4 - 13.8 % [facility] Mean Platelet Volume 8.7 7.6 - 12.9 [facility]ORY NRBC% auto 0.0 % [facility] NRBC Absolute 0.000 0.000 - 0.000 x10(3)/mc L [facility] Blood specimen (specimen) 05/20/2016 10:15 PM EST 05/20/2016 10:25 PM EST Narrative Resulting Agency Comment Spec In Lab Que Amaro MD HEMATOLOGY ORD ERABLES Performing Organization Address [facility] Co de Phone Number [facility] [place] [address] * Lactate, whole blood, send to lab (05/20/2016 10:15 PM EST) Lactate WB 1.4 0.5 - 2.2 mmol/L [facility] Blood specimen (specimen) 05/20/2016 10:15 PM EST 05/20/2016 10:25 PM EST Narrative Resulting Agency Comment Spec In Lab Que Amaro MD CHEMISTRY ORDBhargav JENNINGS Performing Organization Address [facility] Co de Phone Number [facility] [place] [address] * Phosphorus (05/20/2016 10:15 PM EST) Phosphorus 3.0 2.5 - 4.5 mg/dL [facility] Blood specimen (specimen) 05/20/2016 10:15 PM EST 05/20/2016 10:25 PM EST Narrative Resulting Agency Comment Spec In Lab Que Amaro MD CHEMISTRY ORDBhargav JENNINGS Performing Organization Address City/[facility]/ZIP Co de Phone Number [facility] [place] [address] * (ABNORMAL) Magnesium (05/20/2016 10:15 PM EST) Pathologist [facility] Magnesium 0.51(L) 0.69 - 1.07 mmol/L [facility] Blood specimen (specimen) 05/20/2016 10:15 PM EST 05/20/2016 10:25 PM EST Narrative Resulting Agency Comment Spec In Lab Que Amaro MD CHEMISTRY ROCHELLE JENNINGS [facility] [place] [address] * (ABNORMAL) BMP w/fasting Glucose (05/20/2016 10:15 PM EST) Pathologist [facility] Glucose Fasting 254(H) 65 - 99 mg/dL [facility] Comment: ?Fasting* Glucose Interpretive [...] Mellitus, Position Statement from the [place] [employer]. ??Diabetes Care, Volume 33, Supplement 1, Jul 2009 Blood Urea Nitrogen 16 10 - 20 mg/dL [facility] Creatinine 1.21 0.80 - 1.50 mg/dL [facility] Comment: Please note that the pediatric reference intervals supplied above were not validated at [facility]. Results from pediatric patients should be interpreted in conjunction to the patient's age, height and muscle mass. Sodium 138 135 - 145 mmol/L [facility] Potassium 4.3 3.5 - 5.0 mmol/L [facility] Comment: Please note: ??Patients with WBC >100,000 may have falsely elevated Potassium levels. ??For accurate Potassium quantification in these patients send serum separator tube (gold top) for subsequent determinations. ??Contact the Clinical Chemistry Laboratory if there are any questions. Chloride 104 98 - 107 mmol/L [facility] Carbon Dioxide 20(L) 22 - 31 mmol/L [facility] Anion Gap 14 5 - 15 mmol/L [facility] Calcium 8.4(L) 8.5 - 10.5 mg/dL [facility] Est Glomerular Filtration Rate 60 >=60 [facility] Comment: This estimated [...] the following links into your internet browser. [email or web address] Blood specimen (specimen) 05/20/2016 10:15 PM EST 05/20/2016 10:25 PM EST Narrative Resulting Agency Comment Spec In Lab Que Amaro MD CHEMISTRY ROCHELLE JENNINGS Performing Organization Address [facility] Co de Phone Number [facility] [place] [address] * Specimen to Pathology (surgical or derm) (05/20/2016 7:38 PM EST) AP Specimen 05/20/2016 7:38 PM EST 05/20/2016 7:38 PM EST Narrative [facility] - 05/20/2016 7:38 PM EST Specimen requisition ordered. ??Separate Pathology report to follow Que Amaro MD PATHOLOGY/CYTO LOGY ORDERABLES Performing Organization Address [facility]/ZIP Co de Phone Number [facility] [place] [address] * (ABNORMAL) POCT Glucose (05/20/2016 7:32 PM EST) Glucose, POC 204(H) 65 - 199 mg/dL [facility] Comment: Supplemental ranges: <140 mg/dL before meals <180 mg/dL all other times of the day Blood specimen (specimen) 05/20/2016 7:32 PM EST 05/20/2016 7:32 PM EST Que Amaro MD POINT OF CARE TEST ORDERABLES Performing Organization Address City/[facility]/ZIP Co de Phone Number [facility] [place] [address] * (ABNORMAL) POCT Glucose (05/20/2016 7:30 PM EST) Glucose, POC 220(H) 65 - 199 mg/dL [facility] Comment: Supplemental ranges: <140 mg/dL before meals <180 mg/dL all other times of the day Blood specimen (specimen) 05/20/2016 7:30 PM EST 05/20/2016 7:30 PM EST Que Amaro MD POINT OF CARE TEST ORDERABLES Performing Organization Address City/[facility]/ZIP Co de Phone Number [facility] [place] [address] * Specimen to Pathology (surgical or derm) (05/20/2016 7:25 PM EST) AP Specimen 05/20/2016 7:25 PM EST 05/20/2016 7:25 PM EST Narrative [facility] - 05/20/2016 7:25 PM EST Specimen requisition ordered. ??Separate Pathology report to follow Que Amaro MD PATHOLOGY/CYTO LOGY ORDERABLES Performing Organization Address City/[facility]/ZIP Co de Phone Number [facility] [place] [address] * Surgical Pathology Report (05/20/2016 7:23 PM EST) Final Diagnosis [id number] ?Location: [facility]; 0423; A The signing pathologist has (i) examined the relevant preparation(s) for the specimen(s) and (ii) rendered or confirmed the diagnosis(es). . 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 ?2. No evidence of viral inclusions. B - [place] left ureter: ?1. Benign ureter. ?2. No [...] - Left transplant kidney ureter B - [place] left ureter Clinical History: Left ureteral stricture [...] central cross- sections. ??(R2) B - ??Labeled/Fixative: [place] left ureter, fresh. Quantity/Size: Single, 8.2 x 0.4 x 0.4 cm. Tissue Description: Unoriented segment of ureter. ??The wall averages 0.2 cm in thickness. there is a stellate lumen. ??The mucosa is glistening pink-oro. . SPECIMEN PROCESSING Sections/Processing: (1) Sections from the ends of the specimen; (2) additional central cross sections. ??(R2) ??ejr 05/23/2016 9:45 AM EST [facility] URETERIC STRUCTURE / Unknown 05/20/2016 7:23 PM EST 05/20/2016 7:23 PM EST URETERIC STRUCTURE / Unknown 05/20/2016 7:23 PM EST 05/20/2016 7:23 PM EST Que Amaro MD PATHOLOGY/CYTO LOGY ORDERABLES Performing Organization Address [facility] Co de Phone Number [facility] [place] [address] * XR Fluoro No Rad <1Hr (05/20/2016 1:59 PM EST) Narrative RAD - 05/20/2016 1:59 PM EST This order does not need a radiologist interpretation. ?? Que Amaro MD IMG FLUORO ORD ERABLES Performing Organization Address [facility] Co de Phone Number [place], [place] * Differential, Automated (05/20/2016 5:47 AM EST) Neutrophil % 72.4 % [facility] Neutrophil Absolute 5.83 1.70 - 6.10 x10(3)/[facility] LABORATORY Lymph % 15.8 % [facility] Lymphocytes Abs 1.3 0.9 - 3.2 x10(3)/[facility] LABORATORY Monocyte % 6.1 % [facility] Monocyte Abs 0.5 0.3 - 0.9 x10(3)/[facility]OR[facility]ORY Eos % 4.1 % [facility] Eosinophils Abs 0.3 0.0 - 0.4 x10(3)/[facility] LABOR[facility]ORY Basophil % 1.1 % [facility] Baso Absolute 0.1 0.0 - 0.1 x10(3)/[facility] LABORATORY Immature Gran % 0.50 % [facility] Comment: Immature granulocytes(IG's)percentage and absolute count will include metamyelocytes, myelocytes, and promyelocytes. Blood smears from CBCs yielding IG's will be scanned manually for concordance. If this scan disagrees with the automated IG or if promyelocytes are noted, a manual differential will be performed. Immature Gran Absolute 0.04 0.00 - 0.04 x10(3)/[facility] LABORATORY Blood specimen (specimen) 05/20/2016 5:47 AM EST 05/20/2016 5:58 AM EST Narrative Resulting Agency Comment Spec In Lab Que Amaro MD HEMATOLOGY ORD ERABLES [facility] [place] [address] * (ABNORMAL) Hemogram (05/20/2016 5:47 AM EST) White Blood Cell 8.0 4.0 - 9.5 x10(3)/mc L [facility] Red Blood Cell 4.41(L) 4.58 - 5.54 x10(6)/mc L [facility] Hemoglobin 14.1 13.7 - 16.5 gm/dL [facility] Hematocrit 40.0(L) 40.5 - 48.5 % [facility] Mean Cell Volume 90.7 82.9 - 93.1 fL [facility] Mean Cell Hemoglobin 32.0 27.5 - 32.1 pg [facility] Mean Cell Hemoglobin Concentration 35.3 32.0 - 35.7 gm/dL [facility] Platelet 214 145 - 357 x10(3)/mc L [facility] RDW Standard Deviation 39.4 36.0 - 45.0 [facility] RDW coefficient of variation 11.9 11.4 - 13.8 % [facility] Mean Platelet Volume 8.6 7.6 - 12.9 [facility] NRBC% auto 0.0 % [facility] NRBC Absolute 0.000 0.000 - 0.000 x10(3)/mc L [facility] Blood specimen (specimen) 05/20/2016 5:47 AM EST 05/20/2016 5:58 AM EST Narrative Resulting Agency Comment Spec In Lab Que Amaro MD HEMATOLOGY ORD ERABLES [facility] [place] [address] * (ABNORMAL) Magnesium (05/20/2016 5:47 AM EST) Magnesium 0.55(L) 0.69 - 1.07 mmol/L [facility] Blood specimen (specimen) 05/20/2016 5:47 AM EST 05/20/2016 5:58 AM EST Narrative Resulting Agency Comment Spec In Lab Que Amaro MD CHEMISTRY ORDE DICK [facility] [place] [address] * (ABNORMAL) Phosphorus (05/20/2016 5:47 AM EST) Phosphorus 2.4(L) 2.5 - 4.5 mg/dL [facility] Blood specimen (specimen) 05/20/2016 5:47 AM EST 05/20/2016 5:58 AM EST Narrative Resulting Agency Comment Spec In Lab Que Amaro MD CHEMISTRY ROCHELLE JENNINGS [facility] [place] [address] * Basic Metabolic Panel (non-fasting) (05/20/2016 5:47 AM EST) Glucose 150 65 - 199 mg/dL [facility] Comment:Diabetes: >=200 mg/d L plus symptoms Blood Urea Nitrogen 12 10 - 20 mg/dL [facility] Creatinine 1.14 0.80 - 1.50 mg/dL [facility] Comment: Please note that the pediatric reference intervals supplied above were not validated at [facility]. Results from pediatric patients should be interpreted [...] questions. Chloride 100 98 - 107 mmol/L [facility] Carbon Dioxide 24 22 - 31 mmol/L [facility] Anion Gap 14 5 - 15 mmol/L [facility] Calcium 9.0 8.5 - 10.5 mg/dL [facility] Est Glomerular Filtration Rate >60 >=60 [facility] Comment: This estimated [...] the following links into your internet browser. [email or web address] Blood specimen (specimen) 05/20/2016 5:47 AM EST 05/20/2016 5:58 AM EST Narrative Resulting Agency Comment Spec In Lab Que JENNINGS Performing Organization Address [facility] Co de Phone Number [facility] [place] [address] * Tacrolimus level (05/19/2016 8:00 AM EST) Tacrolimus 8.1 ng/mL [facility] Comment: Trough therapeutic: ??5-15 ng/mL Performed by ultra-performance liquid chromatography tandem mass spectrometry (UPLCMS/MS). Blood specimen (specimen) 05/19/2016 8:00 AM EST 05/19/2016 10:28 AM EST Narrative Resulting Agency Comment Spec In Lab Que JENNINGS Performing Organization Address [facility] Co de Phone Number [facility] [place] [address] * Antibody screen (05/19/2016 4:17 AM EST) Ab Screen Interp Negative [facility] Expires at [id number] on: 05/22/2016 [facility] Blood specimen (specimen) 05/19/2016 4:17 AM EST 05/19/2016 4:33 AM EST Narrative Resulting Agency Comment Spec In Lab Que Amaro MD BLOOD BANK LAB ORDERABLES Performing Organization Address [facility] Co de Phone Number [facility] [place] [address] * ABO/Rh Typing (05/19/2016 4:17 AM EST) ABORH Type AB Pos [facility] Blood specimen (specimen) 05/19/2016 4:17 AM EST 05/19/2016 4:33 AM EST Narrative Resulting Agency Comment Spec In Lab Que Amaro MD BLOOD BANK LAB ORDERABLES Performing Organization Address [facility] Co de Phone Number [facility] [place] [address] * Prothrombin Time (05/19/2016 4:17 AM EST) Prothrombin Time 13.3 12.0 - 15.0 sec [facility] Comment: An INR <2.0 [...] International Normalization Ratio 1.0 0.9 - 1.1 [facility] Blood specimen (specimen) 05/19/2016 4:17 AM EST 05/19/2016 4:35 AM EST Narrative Resulting Agency Comment Spec In Lab Que Amaro MD HEMATOLOGY ORD ERABLES Performing Organization Address [facility] Co de Phone Number [facility] [place] [address] * Differential, Automated (05/19/2016 4:17 AM EST) Neutrophil % 69.8 % [facility] Neutrophil Absolute 5.19 1.70 - 6.10 x10(3)/[facility] Lymph % 18.5 % [facility] Lymphocytes Abs 1.4 0.9 - 3.2 x10(3)/[facility] Monocyte % 6.2 % [facility] Monocyte Abs 0.5 0.3 - 0.9 x10(3)/[facility] Eos % 3.9 % [facility] Eosinophils Abs 0.3 0.0 - 0.4 x10(3)/[facility] Basophil % 1.1 % [facility] Baso Absolute 0.1 0.0 - 0.1 x10(3)/[facility] Immature Gran % 0.50 % [facility] Comment: Immature granulocytes(IG's)percentage and absolute count will include metamyelocytes, myelocytes, and promyelocytes. Blood smears from CBCs yielding IG's will be scanned manually for concordance. If this scan disagrees with the automated IG or if promyelocytes are noted, a manual differential will be performed. Immature Gran Absolute 0.04 0.00 - 0.04 x10(3)/[facility] Blood specimen (specimen) 05/19/2016 4:17 AM EST 05/19/2016 4:35 AM EST Narrative Resulting Agency Comment Spec In Lab Que Amaro MD HEMATOLOGY ORD ERABLES Performing Organization Address City/State/[facility] Co de Phone Number [facility] [place] [address] * (ABNORMAL) Hemogram (05/19/2016 4:17 AM EST) White Blood Cell 7.4 4.0 - 9.5 x10(3)/ L [facility] Red Blood Cell 4.43(L) 4.58 - 5.54 x10(6)/ L [facility] Hemoglobin 14.2 13.7 - 16.5 gm/dL [facility] Hematocrit 40.2(L) 40.5 - 48.5 % [facility] Mean Cell Volume 90.7 82.9 - 93.1 fL [facility] Mean Cell Hemoglobin 32.1 27.5 - 32.1 pg [facility] Mean Cell Hemoglobin Concentration 35.3 32.0 - 35.7 gm/dL [facility] Platelet 192 145 - 357 x10(3)/mc L [facility] RDW Standard Deviation 39.8 36.0 - 45.0 fL [facility] RDW coefficient of variation 11.9 11.4 - 13.8 % [facility] Mean Platelet Volume 8.9 7.6 - 12.9 fL [facility] NRBC% auto 0.0 % [facility] NRBC Absolute 0.000 0.000 - 0.000 x10(3)/mc L [facility] Blood specimen (specimen) 05/19/2016 4:17 AM EST 05/19/2016 4:35 AM EST Narrative Resulting Agency Comment Spec In Lab Que Amaro MD HEMATOLOGY ORD ERABLES Performing Organization Address [facility] Co de Phone Number [facility] [place] [address] * (ABNORMAL) Magnesium (05/19/2016 4:17 AM EST) Magnesium 0.68(L) 0.69 - 1.07 mmol/L [facility] Blood specimen (specimen) 05/19/2016 4:17 AM EST 05/19/2016 4:35 AM EST Narrative Resulting Agency Comment Spec In Lab Que Amaro MD CHEMISTRY ORDBhargav JENNINGS Performing Organization Address [facility] Co de Phone Number [facility] [place] [address] * (ABNORMAL) Phosphorus (05/19/2016 4:17 AM EST) Phosphorus 2.4(L) 2.5 - 4.5 mg/dL [facility] Blood specimen (specimen) 05/19/2016 4:17 AM EST 05/19/2016 4:35 AM EST Narrative Resulting Agency Comment Spec In Lab Que Amaro MD CHEMISTRY ROCHELLE JENNINGS Performing Organization Address [facility] Co de Phone Number [facility] [place] [address] * (ABNORMAL) Basic Metabolic Panel (non-fasting) (05/19/2016 4:17 AM EST) Glucose 166 65 - 199 mg/dL [facility] Comment:Diabetes: >=200 mg/d L plus symptoms Blood Urea Nitrogen 11 10 - 20 mg/dL [facility] Creatinine 1.09 0.80 - 1.50 mg/dL [facility] Comment: Please note that the pediatric reference intervals supplied above were not validated at [facility]. Results from pediatric patients should be interpreted in conjunction to the patient's age, height and muscle mass. Sodium 140 135 - 145 mmol/L [facility] Potassium 3.9 3.5 - 5.0 mmol/L [facility] Comment: Please note: ??Patients with WBC >100,000 may have falsely elevated Potassium levels. ??For accurate Potassium quantification in these patients send serum separator tube (gold top) for subsequent determinations. ??Contact the Clinical Chemistry Laboratory if there are any questions. Chloride 99 98 - 107 mmol/L [facility] Carbon Dioxide 25 22 - 31 mmol/L [facility] Anion Gap 16(H) 5 - 15 mmol/L [facility] Calcium 9.0 8.5 - 10.5 mg/dL [facility] Est Glomerular Filtration Rate >60 >=60 [facility] Comment: This estimated [...] the following links into your internet browser. [email or web address] Blood specimen (specimen) 05/19/2016 4:17 AM EST 05/19/2016 4:35 AM EST Narrative Resulting Agency Comment Spec In Lab Que Amaro MD CHEMISTRY ORDE DICK Performing Organization Address City/[facility]/ZIP Co de Phone Number [facility] [place] [address] * Differential, Automated (05/18/2016 5:54 AM EST) [facility] Neutrophil % 69.2 % [facility] Neutrophil Absolute 5.48 1.70 - 6.10 x10(3)/[facility] LABOR[facility] Lymph % 18.5 % [facility] Lymphocytes Abs 1.5 0.9 - 3.2 x10(3)/[facility] Monocyte % 6.6 % [facility] Monocyte Abs 0.5 0.3 - 0.9 x10(3)/[facility]OR[facility] Eos % 4.3 % [facility] Eosinophils Abs 0.3 0.0 - 0.4 x10(3)/[facility] Basophil % 1.1 % [facility] Baso Absolute 0.1 0.0 - 0.1 x10(3)/[facility] Immature Gran % 0.30 % [facility] Comment: Immature granulocytes(IG's)percentage and absolute count will include metamyelocytes, myelocytes, and promyelocytes. Blood smears from CBCs yielding IG's will be scanned manually for concordance. If this scan disagrees with the automated IG or if promyelocytes are noted, a manual differential will be performed. Immature Gran Absolute 0.02 0.00 - 0.04 x10(3)/[facility]OR[facility] Blood specimen (specimen) 05/18/2016 5:54 AM EST 05/18/2016 6:00 AM EST Narrative Resulting Agency Comment Spec In Lab Que Amaro MD HEMATOLOGY ORD MILAGROS [facility] [place] [address] * (ABNORMAL) Hemogram (05/18/2016 5:54 AM EST) White Blood Cell 7.9 4.0 - 9.5 x10(3)/mc L [facility] Red Blood Cell 4.51(L) 4.58 - 5.54 x10(6)/mc L [facility] Hemoglobin 14.4 13.7 - 16.5 gm/dL [facility] Hematocrit 40.5 40.5 - 48.5 % [facility] Mean Cell Volume 89.8 82.9 - 93.1 fL [facility] Mean Cell Hemoglobin 31.9 27.5 - 32.1 pg [facility] Mean Cell Hemoglobin Concentration 35.6 32.0 - 35.7 gm/dL [facility] Platelet 205 145 - 357 x10(3)/[facility] LABORATORY RDW Standard Deviation 39.8 36.0 - 45.0 [facility] LABORATORY RDW coefficient of variation 12.1 11.4 - 13.8 % [facility] Mean Platelet Volume 8.7 7.6 - 12.9 fL [facility] NRBC% auto 0.0 % [facility] NRBC Absolute 0.000 0.000 - 0.000 x10(3)/ L [facility] Blood specimen (specimen) 05/18/2016 5:54 AM EST 05/18/2016 6:00 AM EST Narrative Resulting Agency Comment Spec In Lab Que Amaro MD HEMATOLOGY ORD ERABLES [facility] [place] [address] * (ABNORMAL) Magnesium (05/18/2016 5:54 AM EST) Pathologist [facility] Magnesium 0.68(L) 0.69 - 1.07 mmol/L [facility] Blood specimen (specimen) 05/18/2016 5:54 AM EST 05/18/2016 6:00 AM EST Narrative Resulting Agency Comment Spec In Lab Que Amaro MD CHEMISTRY ROCHELLE JENNINGS Performing Organization Address City/[facility]/ZIP Co de Phone Number [facility] [place] [address] * Phosphorus (05/18/2016 5:54 AM EST) [facility] Phosphorus 2.8 2.5 - 4.5 mg/dL [facility] Blood specimen (specimen) 05/18/2016 5:54 AM EST 05/18/2016 6:00 AM EST Narrative Resulting Agency Comment Spec In Lab Que Amaro MD CHEMISTRY ROCHELLE JENNINGS Performing Organization Address [facility] de Phone Number [facility] [place] [address] * Basic Metabolic Panel (non-fasting) (05/18/2016 5:54 AM EST) [facility] Glucose 168 65 - 199 mg/dL [facility] Comment:Diabetes: >=200 mg/d L plus symptoms Blood Urea Nitrogen 11 10 - 20 mg/dL [facility] Creatinine 1.15 0.80 - 1.50 mg/dL [facility] Comment: Please note that the pediatric reference intervals supplied above were not validated at [facility]. Results from pediatric patients should be interpreted in conjunction to the patient's age, height and muscle mass. Sodium 139 135 - 145 mmol/L [facility] Potassium 3.5 3.5 - 5.0 mmol/L [facility] Comment: Please note: ??Patients with WBC >100,000 may have falsely elevated Potassium levels. ??For accurate Potassium quantification in these patients send serum separator tube (gold top) for subsequent determinations. ??Contact the Clinical Chemistry Laboratory if there are any questions. Chloride 98 98 - 107 mmol/L [facility] Carbon Dioxide 27 22 - 31 mmol/L [facility] Anion Gap 14 5 - 15 mmol/L [facility] Calcium 9.1 8.5 - 10.5 mg/dL [facility] Est Glomerular Filtration Rate >60 >=60 [facility] Comment: This estimated [...] the following links into your internet browser. [email or web address] Blood specimen (specimen) 05/18/2016 5:54 AM EST 05/18/2016 6:00 AM EST Narrative Resulting Agency Comment Spec In Lab Que Amaro MD CHEMISTRY ORDBhargav JENNINGS Performing Organization Address [facility] de Phone Number [facility] [place] [address] * Vancomycin, trough (05/17/2016 5:35 AM EST) Vancomycin, Trough 16.2 mg/L [facility] [...] MD CHEMISTRY ORDBhargav JENNINGS Performing Organization Address [facility] Co de Phone Number [facility] [place] [address] * Differential, Automated (05/17/2016 5:35 AM EST) Neutrophil % 64.3 % [facility] Neutrophil Absolute 4.39 1.70 - 6.10 x10(3)/[facility] LABORATORY Lymph % 20.2 % [facility] Lymphocytes Abs 1.4 0.9 - 3.2 x10(3)/[facility] LABORATORY Monocyte % 8.3 % [facility] Monocyte Abs 0.6 0.3 - 0.9 x10(3)/[facility]OR[facility] Eos % 5.7 % [facility] Eosinophils Abs 0.4 0.0 - 0.4 x10(3)/[facility] LABOR[facility] Basophil % 1.2 % [facility] Baso Absolute 0.1 0.0 - 0.1 x10(3)/[facility] LABORATORY Immature Gran % 0.30 % [facility] Comment: Immature granulocytes(IG's)percentage and absolute count will include metamyelocytes, myelocytes, and promyelocytes. Blood smears from CBCs yielding IG's will be scanned manually for concordance. If this scan disagrees with the automated IG or if promyelocytes are noted, a manual differential will be performed. Immature Gran Absolute 0.02 0.00 - 0.04 x10(3)/[facility] Blood specimen (specimen) 05/17/2016 5:35 AM EST 05/17/2016 5:42 AM EST Narrative Resulting Agency Comment Spec In Lab Que Amaro MD HEMATOLOGY ORD ERABLES [facility] [place] [address] * (ABNORMAL) Hemogram (05/17/2016 5:35 AM EST) Pathologist [facility] White Blood Cell 6.8 4.0 - 9.5 x10(3)/mc L [facility] Red Blood Cell 4.38(L) 4.58 - 5.54 x10(6)/mc L [facility] Hemoglobin 14.2 13.7 - 16.5 gm/dL [facility] Hematocrit 39.4(L) 40.5 - 48.5 % [facility] Mean Cell Volume 90.0 82.9 - 93.1 fL [facility] Mean Cell Hemoglobin 32.4(H) 27.5 - 32.1 pg [facility] Mean Cell Hemoglobin Concentration 36.0(H) 32.0 - 35.7 gm/dL [facility] Platelet 213 145 - 357 x10(3)/mc L [facility] RDW Standard Deviation 40.2 36.0 - 45.0 fL [facility] RDW coefficient of variation 12.2 11.4 - 13.8 % [facility] Mean Platelet Volume 8.7 7.6 - 12.9 fL [facility] NRBC% auto 0.0 % [facility] NRBC Absolute 0.000 0.000 - 0.000 x10(3)/mc L [facility] Blood specimen (specimen) 05/17/2016 5:35 AM EST 05/17/2016 5:42 AM EST Narrative Resulting Agency Comment Spec In Lab Que Amaro MD HEMATOLOGY ORD AMANDABLES Performing Organization Address [facility] [place] [address] * Magnesium (05/17/2016 5:35 AM EST) Magnesium 0.73 0.69 - 1.07 mmol/L [facility] Blood specimen (specimen) 05/17/2016 5:35 AM EST 05/17/2016 5:42 AM EST Narrative Resulting Agency Comment Spec In Lab Que Amaro MD CHEMISTRY ORDBhargav JENNINGS Performing Organization Address City/[facility] Co de Phone Number [facility] [place] [address] * Phosphorus (05/17/2016 5:35 AM EST) Phosphorus 2.9 2.5 - 4.5 mg/dL [facility] Blood specimen (specimen) 05/17/2016 5:35 AM EST 05/17/2016 5:42 AM EST Narrative Resulting Agency Comment Spec In Lab Que Amaro MD CHEMISTRY ROCHELLE JENNINGS [facility] [place] [address] * (ABNORMAL) Basic Metabolic Panel (non-fasting) (05/17/2016 5:35 AM EST) Glucose 164 65 - 199 mg/dL [facility] Comment:Diabetes: >=200 mg/d L plus symptoms Blood Urea Nitrogen 13 10 - 20 mg/dL [facility] Creatinine 1.23 0.80 - 1.50 mg/dL [facility] Comment: Please note that the pediatric reference intervals supplied above were not validated at [facility]. Results from pediatric patients should be interpreted in conjunction to the patient's age, height and muscle mass. Sodium 141 135 - 145 mmol/L [facility] Potassium 3.5 3.5 - 5.0 mmol/L [facility] Comment: Please note: ??Patients with WBC >100,000 may have falsely elevated Potassium levels. ??For accurate Potassium quantification in these patients send serum separator tube (gold top) for subsequent determinations. ??Contact the Clinical Chemistry Laboratory if there are any questions. Chloride 102 98 - 107 mmol/L [facility] Carbon Dioxide 26 22 - 31 mmol/L [facility] Anion Gap 13 5 - 15 mmol/L [facility] Calcium 8.9 8.5 - 10.5 mg/dL [facility] Est Glomerular Filtration Rate 59(L) >=60 [facility] Comment: This estimated [...] the following links into your internet browser. [email or web address] Blood specimen (specimen) 05/17/2016 5:35 AM EST 05/17/2016 5:42 AM EST Narrative Resulting Agency Comment Spec In Lab Que Amaro MD CHEMISTRY ROCHELLE JENNINGS Performing Organization Address [facility] de Phone Number [facility] [place] [address] * Tacrolimus level (05/16/2016 8:50 AM EST) Tacrolimus 5.7 ng/mL [facility] Comment: Trough therapeutic: ??5-15 ng/mL Performed by ultra-performance liquid chromatography tandem mass spectrometry (UPLCMS/MS). Blood specimen (specimen) 05/16/2016 8:50 AM EST 05/16/2016 11:43 AM EST Narrative Resulting Agency Comment Spec In Lab Que Amaro MD CHEMISTRY ORDBhargav JENNINGS Performing Organization Address [facility] de Phone Number [facility] [place] [address] * Differential, Automated (05/16/2016 6:24 AM EST) Neutrophil % 68.9 % [facility] Neutrophil Absolute 5.15 1.70 - 6.10 x10(3)/[facility] LABORAT[facility] Lymph % 16.7 % [facility] Lymphocytes Abs 1.2 0.9 - 3.2 x10(3)/[facility] LABOR[facility]ORY Monocyte % 8.2 % [facility] Monocyte Abs 0.6 0.3 - 0.9 x10(3)/[facility] Eos % 4.5 % [facility] Eosinophils Abs 0.3 0.0 - 0.4 x10(3)/[facility] Basophil % 1.3 % [facility] Baso Absolute 0.1 0.0 - 0.1 x10(3)/[facility] LABORAT[facility] Immature Gran % 0.40 % [facility] Comment: Immature granulocytes(IG's)percentage and absolute count will include metamyelocytes, myelocytes, and promyelocytes. Blood smears from CBCs yielding IG's will be scanned manually for concordance. If this scan disagrees with the automated IG or if promyelocytes are noted, a manual differential will be performed. Immature Gran Absolute 0.03 0.00 - 0.04 x10(3)/[facility] Blood specimen (specimen) 05/16/2016 6:24 AM EST 05/16/2016 6:34 AM EST Narrative Resulting Agency Comment Spec In Lab Que Amaro MD HEMATOLOGY ORD ERABLES [facility] [place] [address] * (ABNORMAL) Hemogram (05/16/2016 6:24 AM EST) White Blood Cell 7.5 4.0 - 9.5 x10(3)/mc L [facility] Red Blood Cell 4.52(L) 4.58 - 5.54 x10(6)/mc L [facility] Hemoglobin 14.4 13.7 - 16.5 gm/dL [facility] Hematocrit 41.1 40.5 - 48.5 % [facility] Mean Cell Volume 90.9 82.9 - 93.1 fL [facility] Mean Cell Hemoglobin 31.9 27.5 - 32.1 pg [facility] Mean Cell Hemoglobin Concentration 35.0 32.0 - 35.7 gm/dL [facility] Platelet 215 145 - 357 x10(3)/mc L [facility] RDW Standard Deviation 40.2 36.0 - 45.0 fL [facility] RDW coefficient of variation 12.0 11.4 - 13.8 % [facility] Mean Platelet Volume 8.8 7.6 - 12.9 fL [facility] NRBC% auto 0.0 % [facility] NRBC Absolute 0.000 0.000 - 0.000 x10(3)/mc L [facility] Blood specimen (specimen) 05/16/2016 6:24 AM EST 05/16/2016 6:34 AM EST Narrative Resulting Agency Comment Spec In Lab Que Amaro MD HEMATOLOGY ORD ERABLES Performing Organization Address [facility]/ZIP Co de Phone Number [facility] [place] [address] * (ABNORMAL) Magnesium (05/16/2016 6:24 AM EST) Magnesium 0.58(L) 0.69 - 1.07 mmol/L [facility] Blood specimen (specimen) 05/16/2016 6:24 AM EST 05/16/2016 6:34 AM EST Narrative Resulting Agency Comment Spec In Lab Que Amaro MD CHEMISTRY ORDBhargav JENNINGS [facility] [place] [address] * Phosphorus (05/16/2016 6:24 AM EST) Phosphorus 2.6 2.5 - 4.5 mg/dL [facility] Blood specimen (specimen) 05/16/2016 6:24 AM EST 05/16/2016 6:34 AM EST Narrative Resulting Agency Comment Spec In Lab Que Amaro MD CHEMISTRY ROCHELLE JENNINGS [facility] [place] [address] * (ABNORMAL) Basic Metabolic Panel (non-fasting) (05/16/2016 6:24 AM EST) Glucose 180 65 - 199 mg/dL [facility] Comment:Diabetes: >=200 mg/d L plus symptoms Blood Urea Nitrogen 11 10 - 20 mg/dL [facility] Creatinine 1.30 0.80 - 1.50 mg/dL [facility] Comment: Please note that the pediatric reference intervals supplied above were not validated at [facility]. Results from pediatric patients should be interpreted in conjunction to the patient's age, height and muscle mass. Sodium 137 135 - 145 mmol/L [facility] Potassium 3.4(L) 3.5 - 5.0 mmol/L [facility] Comment: Please note: ??Patients with WBC >100,000 may have falsely elevated Potassium levels. ??For accurate Potassium quantification in these patients send serum separator tube (gold top) for subsequent determinations. ??Contact the Clinical Chemistry Laboratory if there are any questions. Chloride 100 98 - 107 mmol/L [facility] Carbon Dioxide 24 22 - 31 mmol/L [facility] Anion Gap 13 5 - 15 mmol/L [facility] Calcium 9.0 8.5 - 10.5 mg/dL [facility] Est Glomerular Filtration Rate 55(L) >=60 [facility] Comment: This estimated [...] the following links into your internet browser. [email or web address] Blood specimen (specimen) 05/16/2016 6:24 AM EST 05/16/2016 6:34 AM EST Narrative Resulting Agency Comment Spec In Lab Que Amaro MD CHEMISTRY ORDE RABLES Performing Organization Address [facility]/ZIP Co de Phone Number [facility] [place] [address] * Urine culture (05/15/2016 3:04 PM EST) Urine Culture No growth (Less than 100 cfu/ml). [facility] Urine specimen from nephrostomy tube (specimen) 05/15/2016 3:04 PM EST 05/15/2016 4:31 PM EST Narrative Resulting Agency Comment Spec In Lab Que Amaro MD MICROBIOLOGY - GENERAL ORDERABLES Performing Organization Address [facility] Co de Phone Number [facility] [place] [address] * (ABNORMAL) Urinalysis with reflex Culture (05/15/2016 [...] CENTER LABORATORY Leukocytes, Urine Dipstick Small(A) Negative [facility] Appearance, Urine Dipstick Clear Clear [facility] Specific [place] Urine Automated 1.009 1.002 - 1.030 [facility] Color, Urine Dipstick Straw Yellow [facility] RBC, Urine 9(H) 0 - 3 /HPF [facility] WBC, Urine 10(H) 0 - 3 /HPF [facility] Bacteria, Urine Rare(A) None /HPF [facility] Reflex to Culture Yes [facility] Urine specimen from nephrostomy tube (specimen) 05/15/2016 3:04 PM EST 05/15/2016 3:44 PM EST Narrative Resulting Agency Comment Spec In Lab Que Amaro MD URINE ORDERABL ES Performing Organization Address [facility] de Phone Number [facility] [place] [address] * Vancomycin, trough (05/15/2016 5:50 AM EST) Vancomycin, Trough 8.9 mg/L [facility] [...] ORDE RABLES Performing Organization Address [facility] Co de Phone Number [facility] [place] [address] * (ABNORMAL) Differential, Automated (05/15/2016 3:15 AM EST) Neutrophil % 72.9 % [facility] Neutrophil Absolute 6.64(H) 1.70 - 6.10 x10(3)/[facility] LABORATORY Lymph % 14.1 % [facility] Lymphocytes Abs 1.3 0.9 - 3.2 x10(3)/[facility] LABORATORY Monocyte % 7.9 % [facility] Monocyte Abs 0.7 0.3 - 0.9 x10(3)/[facility] LAB[facility] Eos % 3.7 % [facility] Eosinophils Abs 0.3 0.0 - 0.4 x10(3)/[facility] LABORATORY Basophil % 1.1 % [facility] Baso Absolute 0.1 0.0 - 0.1 x10(3)/[facility] LAB[facility] Immature Gran % 0.30 % [facility] [...] 0.00 - 0.04 x10(3)/[facility] Blood specimen (specimen) 05/15/2016 3:15 AM EST 05/15/2016 3:23 AM EST Narrative Resulting Agency Comment Spec In Lab Que Amaro MD HEMATOLOGY ORD ERABLES [facility] [place] [address] * Hemogram (05/15/2016 3:15 AM EST) White Blood Cell 9.1 4.0 - 9.5 x10(3)/[facility] Red Blood Cell 4.58 4.58 - 5.54 x10(6)/[facility] Hemoglobin 14.7 13.7 - 16.5 gm/dL [facility] Hematocrit 41.3 40.5 - 48.5 % [facility] Mean Cell Volume 90.2 82.9 - 93.1 fL [facility] Mean Cell Hemoglobin 32.1 27.5 - 32.1 pg [facility] Mean Cell Hemoglobin Concentration 35.6 32.0 - 35.7 gm/dL [facility] Platelet 209 145 - 357 x10(3)/[facility]AT[facility] RDW Standard Deviation 40.0 36.0 - 45.0 [facility] RDW coefficient of variation 12.2 11.4 - 13.8 % [facility] Mean Platelet Volume 8.7 7.6 - 12.9 [facility] NRBC% auto 0.0 % [facility] NRBC Absolute 0.000 0.000 - 0.000 x10(3)/[facility] Blood specimen (specimen) 05/15/2016 3:15 AM EST 05/15/2016 3:23 AM EST Narrative Resulting Agency Comment Spec In Lab Que Amaro MD HEMATOLOGY ORD ERABLES Performing Organization Address City/[facility]/ZIP Co de Phone Number [facility] [place] [address] * (ABNORMAL) Magnesium (05/15/2016 3:15 AM EST) Magnesium 0.68(L) 0.69 - 1.07 mmol/L [facility] Blood specimen (specimen) 05/15/2016 3:15 AM EST 05/15/2016 3:23 AM EST Narrative Resulting Agency Comment Spec In Lab Que Amaro MD CHEMISTRY ORDE DICK Performing Organization Address City/[facility]/ZIP Co de Phone Number [facility] [place] [address] * Phosphorus (05/15/2016 3:15 AM EST) Phosphorus 2.9 2.5 - 4.5 mg/dL [facility] Blood specimen (specimen) 05/15/2016 3:15 AM EST 05/15/2016 3:23 AM EST Narrative Resulting Agency Comment Spec In Lab Que Amaro MD CHEMISTRY ROCHELLE JENNINGS [facility] [place] [address] * (ABNORMAL) Basic Metabolic Panel (non-fasting) (05/15/2016 3:15 AM EST) Glucose 162 65 - 199 mg/dL [facility] Comment:Diabetes: >=200 mg/d L plus symptoms Blood Urea Nitrogen 9(L) 10 - 20 mg/dL [facility] Creatinine 1.23 0.80 - 1.50 mg/dL [facility] Comment: Please note that the pediatric reference intervals supplied above were not validated at [facility]. Results from pediatric patients should be interpreted in conjunction to the patient's age, height and muscle mass. Sodium 140 135 - 145 mmol/L [facility] Potassium 3.6 3.5 - 5.0 mmol/L [facility] Comment: Please note: ??Patients with WBC >100,000 may have falsely elevated Potassium levels. ??For accurate Potassium quantification in these patients send serum separator tube (gold top) for subsequent determinations. ??Contact the Clinical Chemistry Laboratory if there are any questions. Chloride 101 98 - 107 mmol/L [facility] Carbon Dioxide 26 22 - 31 mmol/L [facility] Anion Gap 13 5 - 15 mmol/L [facility] Calcium 9.0 8.5 - 10.5 mg/dL [facility] Est Glomerular Filtration Rate 59(L) >=60 [facility] Comment: This estimated [...] the following links into your internet browser. [email or web address] Blood specimen (specimen) 05/15/2016 3:15 AM EST 05/15/2016 3:23 AM EST Narrative Resulting Agency Comment Spec In Lab Que Amaro MD CHEMISTRY ROCHELLE JENNINGS [facility] [place] [address] * XR Chest PA or AP 1 [...] Differential, Automated (05/14/2016 6:45 AM EST) Pathologist [facility] Neutrophil % 77.5 % [facility] Neutrophil Absolute 7.24(H) 1.70 - 6.10 x10(3)/[facility] LAB[facility] Lymph % 11.1 % [facility] Lymphocytes Abs 1.0 0.9 - 3.2 x10(3)/[facility] LAB[facility] Monocyte % 8.4 % [facility] Monocyte Abs 0.8 0.3 - 0.9 x10(3)/[facility] LABOR[facility] Eos % 1.7 % [facility] Eosinophils Abs 0.2 0.0 - 0.4 x10(3)/[facility] Basophil % 0.9 % [facility] Baso Absolute 0.1 0.0 - 0.1 x10(3)/[facility] LAB[facility]AT[facility] Immature Gran % 0.40 % [facility] Comment: Immature granulocytes(IG's)percentage and absolute count will include metamyelocytes, myelocytes, and promyelocytes. Blood smears from CBCs yielding IG's will be scanned manually for concordance. If this scan disagrees with the automated IG or if promyelocytes are noted, a manual differential will be performed. Immature Gran Absolute 0.04 0.00 - 0.04 x10(3)/[facility] LABORATORY Blood specimen (specimen) 05/14/2016 6:45 AM EST 05/14/2016 7:06 AM EST Narrative Resulting Agency Comment Spec In Lab Que Amaro MD HEMATOLOGY ORD ERABLES [facility] [place] [address] * (ABNORMAL) Hemogram (05/14/2016 6:45 AM EST) [facility] White Blood Cell 9.4 4.0 - 9.5 x10(3)/[facility] LABORATORY Red Blood Cell 4.43(L) 4.58 - 5.54 x10(6)/mc L [facility] Hemoglobin 14.2 13.7 - 16.5 gm/dL [facility] Hematocrit 41.1 40.5 - 48.5 % [facility] Mean Cell Volume 92.8 82.9 - 93.1 fL [facility] Mean Cell Hemoglobin 32.1 27.5 - 32.1 pg [facility] Mean Cell Hemoglobin Concentration 34.5 32.0 - 35.7 gm/dL [facility] Platelet 208 145 - 357 x10(3)/mc L [facility] RDW Standard Deviation 41.6 36.0 - 45.0 fL [facility] RDW coefficient of variation 12.2 11.4 - 13.8 % [facility] Mean Platelet Volume 9.0 7.6 - 12.9 [facility] LABORATORY NRBC% auto 0.0 % [facility] LABORATORY NRBC Absolute 0.000 0.000 - 0.000 x10(3)/mc L [facility] Blood specimen (specimen) 05/14/2016 6:45 AM EST 05/14/2016 7:06 AM EST Narrative Resulting Agency Comment Spec In Lab Que Amaro MD HEMATOLOGY ORD MILAGROS Performing Organization Address City/[facility]/[place] [address] * (ABNORMAL) Magnesium (05/14/2016 6:45 AM EST) Magnesium 0.60(L) 0.69 - 1.07 mmol/L [facility] Blood specimen (specimen) 05/14/2016 6:45 AM EST 05/14/2016 7:06 AM EST Narrative Resulting Agency Comment Spec In Lab Que Amaro MD CHEMISTRY ORDBhargav JENNINGS Performing Organization Address City/[facility]/ZIP Co de Phone Number [facility] [place] [address] * (ABNORMAL) Phosphorus (05/14/2016 6:45 AM EST) Pathologist [facility] Phosphorus 2.1(L) 2.5 - 4.5 mg/dL [facility] Blood specimen (specimen) 05/14/2016 6:45 AM EST 05/14/2016 7:06 AM EST Narrative Resulting Agency Comment Spec In Lab Que Amaro MD CHEMISTRY ROCHELLE JENNINGS [facility] [place] [address] * (ABNORMAL) Basic Metabolic Panel (non-fasting) (05/14/2016 6:45 AM EST) Pathologist [facility] Glucose 165 65 - 199 mg/dL [facility] Comment:Diabetes: >=200 mg/d L plus symptoms Blood Urea Nitrogen 12 10 - 20 mg/dL [facility] Creatinine 1.22 0.80 - 1.50 mg/dL [facility] Comment: Please note that the pediatric reference intervals supplied above were not validated at [facility]. Results from pediatric patients should be interpreted in conjunction to the patient's age, height and muscle mass. Sodium 139 135 - 145 mmol/L [facility] Potassium 3.3(L) 3.5 - 5.0 mmol/L [facility] Comment: Please note: ??Patients with WBC >100,000 may have falsely elevated Potassium levels. ??For accurate Potassium quantification in these patients send serum separator tube (gold top) for subsequent determinations. ??Contact the Clinical Chemistry Laboratory if there are any questions. Chloride 100 98 - 107 mmol/L [facility] Carbon Dioxide 25 22 - 31 mmol/L [facility] Anion Gap 14 5 - 15 mmol/L [facility] Calcium 8.8 8.5 - 10.5 mg/dL [facility] Est Glomerular Filtration Rate 59(L) >=60 [facility] LABORATORY Comment: This estimated [...] the following links into your internet browser. [email or web address] Blood specimen (specimen) 05/14/2016 6:45 AM EST 05/14/2016 7:06 AM EST Narrative Resulting Agency Comment Spec In Lab Que Amaro MD CHEMISTRY ROCHELLE JENNINGS Performing Organization Address [facility] Co de Phone Number [facility] [place] [address] * C. Difficile Screen (05/14/2016 2:30 AM EST) C Diff Interp Negative Negative [facility] Comment: C. diff ??Negative [...] - GENER AL ORDERABLES Performing Organization Address [facility] Co de Phone Number [facility] [place] [address] documented in this encounter Visit Diagnoses Not [...] Oral, 2 TIMES DAILY, First dose on 05/24/16 at 0900, Until Discontinued, DO NOT CRUSH [...] Monique Christian RN)1845 (Given - Provider: Monique Christian, JADEN)2327 (Given - Provider: Cami Leonardo RN) 0836 [...] Leonardo RN) 100 (Given - Provider: Monique Christian, JADEN) meTOPROLOL tartrate (LOPRESSOR) tablet 50 mg 50 [...] JADEN - Comment: prograf level drawn by derrick masterson am) tamsulosin (FLOMAX) ER capsule 0.4 [...] Suspected): Prophylaxis 0837 (Given - Provider: Mirian Gambino, JADEN)2034 (Given - Provider: Cami Leonardo, JADEN) Continuous [...] RN)1258 (See Alternative - Provider: Mirian Gambino, RN)1708 (See Alternative - Provider: Mirian Gambino, [...] niave., Routine 0104 (Canceled Entry - Provider: nAastasiia Denney RN - Reason: Entered in Error - Comment: dose given per pt request)0504 (Canceled Entry - Provider: Anastasiia Denney RN - Reason: Entered in Error)0508 (See Alternative - Provider: Anastasiia Denney RN)0911 (Given - Provider: Mirian Gambino RN)1258 (Given - Provider: Mirian Gambino RN)1708 (Given - Provider: Mirian Gambino, RN)2156 (Given - Provider: Cami Leonardo RN) 0216 (Given - Provider: Cami Leonardo RN)0611 (Given - Provider: Cami Leonardo RN)1014 (Given - Provider: Monique Christian RN - Comment: pt states his 4 is really like a 7 )1728 (See Alternative - Provider: Monique Crhistian RN)2327 (See Alternative - Provider: Cami Leonardo [...] Gambino, JADEN)1258 (See Alternative - Provider: Mirian Gambino, JADEN)1708 (See Alternative - Provider: Mirian Gambino, RN)2156 (See Alternative - Provider: Cami Leonardo RN) 0216 (See Alternative - Provider: Cami Leonardo RN)0611 (See Alternative - Provider: Cami Leonardo RN)1014 (See Alternative - Provider: Monique Christian RN)1728 (See Alternative - Provider: Monique Christian RN)2327 (See Alternative - Provider: Cami Leonardo RN) 0415 (See Alternative - Provider: Cami Leonardo, [...] Routine documented in this encounter Care Teams Clinical Laboratory Aide Relationship Specialty Start Date End Date Urbano Denis DO [address] [place] [address] [address] [place] [address] PCP - General 09/03/12 03/17/22 Ruchi Valles RN Nurse Clinic Transplant Surgery 07/30/15 documented as of this encounter
--- OUTSIDE RECORDS SUMMARY | 2024-04-04 14:09 | XMS_ITS | Encounter Summary ---
Author Organization [facility] [place] [address] Care Team Providers Care Nail Welter Name Role Phone AdeelUrbano Primary Care Provider [phone] Reason for Visit * Auth/Cert Specialty Diagnoses / Procedures Referred By Humberto t Referred To Contact Diagnoses Dehydration Referral ID Status Reason Start Date Expiration Date Visits Re quested Visits Authorized [id number] 1 1 Encounter Details Date Type Department Care Team (Late st Contact Info) Description 05/20/2016 3:10 PM EST Anesthesia [place] [id number] Memo Alva MD [facility] [place] [address] Miller Seals CRNA [facility] [place] [address] Anesthesia Record Procedure Summary Procedure Name Responsible [...] anesthetic/surgical status and plan, according to the [facility] Provider Handoff Checklist. 1853 Quick Note Nephrostomy [...] PCN and JJ stent 10 fr (Lot #[id number]); 06/09/16; 0809 04/30/16 1103 by Marisela Miller RN 06/09/16 0809 by Therese Carpio RN Hemodialysis AV Access Device - Single Lumen 05/15/16; 1028; fistula; upper arm, left; found on assessment; 05/28/16; 1228 05/15/16 1028 by Sonia Collins RN 05/28/16 1228 by Sintia Whipple RN (RETIRED) Peripheral IV Line - Single Lumen 05/16/16; 1113; cephalic vein (lateral side of arm), right; yadk-ejq-qdgalv catheter system; 20 gauge; intradermal injection, distraction, [...] cephalic vein (lateral side of arm), right; unfx-mmx-wvborv catheter system; 16 gauge; MD Amrita; site symptomatic, removed per policy/procedure, site care per policy/procedure, catheter/device intact; 05/23/16; 0657 05/20/16 1522 by Miller Seals, SALES MANAGEMENT INTERN 05/23/16 06 by Deandre Johnson RN ETT Mask Ventilation: Ad junct (2); ETT Type: Cuffed, Oral; ETT Size: 7 mm; Mac Blade: 3; Notes: Asleep, Pre-O2, Stylette; Attempts: 2; Laryngoscopy Grade: 1; ETT Placement Verified By: Auscultation, Capnometry, Visual; Secured at Teeth: 23 cm; Inserted by: MD Danielle; Removal Date: 05/20/16; Removal Time: 210405/20/16 152 by Miller Seals, SALES MANAGEMENT INTERN 05/20/162104 by Marisela Garzon CRNA Drain/Device Site 05/20/16; 2007; Left ; upper; abdomen; collapsible closed device; Dr. Arredondo; (19 greenlandic margret drain); 05/25/16; 0905/20/162007 by Hanh Adler, [...] Alva MD - 05/20/2016 11:24 PM EST [facility] Department of Anesthesiology Post-procedure Note Patient: Cody Bolden Procedure Summary Date Anesthesia Start Anesthesia Stop Room / Location 05/20/16 1510 2126 [facility] OR [facility] MAIN OR Procedure Diagnosis Surgeon Responsible Provider @URETERONEOCYSTOSTOMY ANASTOMOSIS OF SINGLE URETER TO BLADDER (Left Ureter); @URETERONEOCYSTOSTOMY ANASTOMOSIS OF SINGLE URETER TO BLADDER (N/A Ureter) (left ureteral stricture) Santosh Arredondo MD; uQe Amaro MD Sidash, Stanislav, MD All Anesthesia Providers: Anesthesiologist: Toney Crowe MD; Memo Alva MD SALES MANAGEMENT INTERN: Miller Seals CRNA; Marisela Garzon CRNA Last (1hr) Vitals: BP 155/83 (05/20/16 2300) Temp Pulse 62 (05/20/16 2300) Resp 15 (05/20/16 2300) SpO2 92 % (05/20/16 2300) Patient Location: PACU/[facility] Level of Consciousness: Awake and Alert Pain [...] Iohexol 240 mgI/mL, 2 mL Events: None Resident/SALES MANAGEMENT INTERN: MINA GIORDANO Second Resident/SALES MANAGEMENT INTERN: Fellow: Attending Physician: MAUREEN SMALLS ~~~~~~~~~~~~~~~~~~~~~~~~~~~~~~~~~~~~~~~~~~~~~~~~~~~~~~~~~~~~ * [...] EXTREMITY performed by Que Amaro MD at [facility] MAIN OR ??? Pro transplantation of kidney N/A 09/16/2015 @KIDNEY TRANSPLANT, WITHOUT RECIPIENT NEPHRECTOMY performed by Franko Larkin MD at [facility] OR ??? Pro transplant, prep cadaver renal graft N/A 09/16/2015 @PREPARATION CADAVERIC RENAL ALLOGRAFT performed by Franko Larkin MD at [facility] OR ??? N/A 09/16/2015 ORGAN ACQUISITION RENAL, CADAVERIC performed by Franko Larkin MD at [facility] OR Social History Substance Use Topics [...] products discussed with patient and spouse who. [facility] Staff Note Attending NOTE Brief HPI: 65 [...] 1:40 PM EDT Office Visit Cardiology at [address] [phone] Jay Urban MD [facility] [place] [address] 04/15/2024 10:00 AM EDT Hospital Encounter [place] [address] Arrived documented as of this encounter Procedures [...] 6 cm Technique for Loss of Resistance: JERYR air and JERRY saline Catheter at skin depth: 13.5 cm Dressing/Secured with: Chlorhexidine Tegaderm, Tegaderm and Tape Number of attempts: 1 Bolus medication 0.2 mg Hydromorphone mcg Events/Notes Imaging: epidurogram obtained and fluoroscopy guided Iohexol 240 mgI/mL, 2 mL Events: None Resident/SALES MANAGEMENT INTERN: MINA GIORDANO Second Resident/SALES MANAGEMENT INTERN: Fellow: Attending Physician: MAUREEN SMALLS ~~~~~~~~~~~~~~~~~~~~~~~~~~~~~~~~~~~~~~~~~~~~~~~~~~~~~~~~~~~~ documented [...] on Thu05/20/16 at 1524, Until Thu05/20/16 at 2126, Anesthesia Intra-op, Routine Given 05/20/2016 4:30 PM EST 8 mg Given 05/20/2016 3:24 PM EST 8 mg ePHEDrine 5 mg/mL multi-dose injection PRN, Starting on Thu05/20/16 at 1532, Until Thu05/20/16 at 2126, Anesthesia Intra-op, Routine Given 05/20/2016 3:32 PM [...] EST documented in this encounter Care Teams Nail Welter Relationship Specialty Start Date End Date Urbano Denis DO [address] [place] [address] PCP - General 09/03/12 03/17/22 Ruchi Valles RN Nurse Clinic Transplant Surgery 07/30/15 documented as of this encounter
--- OUTSIDE RECORDS SUMMARY | 2024-04-04 14:09 | XMS_ITS | Encounter Summary ---
Author Organization [facility]ly [facility] [place] [address] Care Team Providers Care Supervisor Home Energy Consultant Name Role Phone Urbano Denis DO Primary Care Provider [phone] Reason for Visit * Auth/Cert Specialty Diagnoses / Procedures Referred By Humberto flor Referred To Contact Diagnoses Dehydration Referral ID Status Reason Start Date Expiration Date Visits Re quested Visits Authorized [id number] 1 1 Encounter Details Date Type Department Care Team (Late st Contact Info) Description 05/13/2016 11:00 AM EST Office Visit Solid [place] [address] Que Amaro MD [facility] [address] [place] [address] Kidney replaced by transplant Social History Tobacco [...] EXTREMITY performed by Que Amaro MD at [facility] MAIN OR ??? Pro transplantation of kidney N/A 09/16/2015 @KIDNEY TRANSPLANT, WITHOUT RECIPIENT NEPHRECTOMY performed by Franko Larkin MD at [facility] MAIN OR ??? Pro transplant, prep cadaver renal graft N/A 09/16/2015 @PREPARATION CADAVERIC RENAL ALLOGRAFT performed by Franko Larkin MD at [facility] MAIN OR ??? N/A 09/16/2015 ORGAN ACQUISITION RENAL, CADAVERIC performed by Franko Larkin MD at [facility] MAIN OR Family History: No family [...] PM EDT Office Visit Cardiology at [address] [address] Jay Urban MD [facility] [place] [address] 04/15/2024 10:00 AM EDT Hospital Encounter Non-Invasive [place] [phone] Arrived documented as of this encounter Procedures [...] Culture Greater than 100,000 cfu/ml Klebsiella pneumoniae(A) [facility] Organism Klebsiella pneumoniae(A) [facility] Urine specimen (specimen) 05/13/2016 1:00 PM [...] Que Amaro MD MICROBIOLOGY - GENERAL ORDERABLES [facility] [address] [place] [address] * (ABNORMAL) Urinalysis with reflex Culture (05/13/2016 1:00 PM EST) Glucose, Urine Dipstick Negative Negative mg/dL [facility] pH, Urn (dipstick) 5.0 5.0 - 8.0 [facility] Blood, Urine Dipstick Moderate(A) Negative mg/dL [facility] Ketone, Urine Dipstick Negative Negative mg/dL [facility] Nitrite, Urine Dipstick Negative Negative [facility] Leukocytes, Urine Dipstick Large(A) Negative [facility] Appearance, Urine Dipstick Hazy(A) Clear [facility] Specific [place] Urine Automated 1.026 1.002 - 1.030 [facility] Color, Urine Dipstick Muna Yellow [facility] RBC, Urine 107(H) 0 - 3 /HPF [facility] WBC, Urine >182(H) 0 - 3 /HPF [facility] WBC Clumps, Urine Occasional(A ) None /HPF [facility] Bacteria, Urine Rare(A) None /HPF [facility] Squamous Epithelial Cells, Urine 1 <=4 /HPF [facility] Renal Epithelial Cells, Urine 1(H) <=0 /HPF [facility] Reflex to Culture Yes [facility] Urine specimen (specimen) 05/13/2016 1:00 PM EST 05/13/2016 1:20 PM EST Narrative Resulting Agency Comment Spec In Lab Que Amaro MD URINE ORDERABL ES Performing Organization Address [facility]/ZIP Co de Phone Number [facility] [place] [address] * Blood culture (05/13/2016 12:32 PM EST) Blood Culture No growth at 5 days. [facility] Blood specimen (specimen) PERIPHERAL BLOOD / Unknown 05/13/2016 12:32 PM EST 05/13/2016 1:00 PM EST Comment:#2 Narrative Resulting Agency Comment Spec In Lab Que Amaro MD MICROBIOLOGY - BLOOD ORDERABLES Performing Organization Address [facility]/[facility]/ZIP Co de Phone Number [facility] [place] [address] * Blood culture (05/13/2016 12:19 PM EST) Blood Culture No growth at 5 days. [facility] Blood specimen (specimen) PERIPHERALLY INSERTED CENTRAL CATHETER / Unknown 05/13/2016 12:19 PM EST 05/13/2016 1:00 PM EST Comment:#1 Narrative Resulting Agency Comment Spec In Lab Que Amaro MD MICROBIOLOGY - BLOOD ORDERABLES Performing Organization Address City/[facility]/ZIP Co de Phone Number [facility] [place] [address] * Green Tube HOLD (05/13/2016 10:00 AM EST) Green Hold Sample in lab. [facility] Blood specimen (specimen) Venous Draw / Unknown 05/13/2016 10:00 AM EST 05/13/2016 10:07 AM EST Que Amaro MD CHEMISTRY ORDE RABLES Performing Organization Address [facility] Co de Phone Number [facility] [place] [address] * (ABNORMAL) Differential, Automated (05/13/2016 10:00 AM EST) [facility] Neutrophil % 80.4 % [facility] Neutrophil Absolute 9.57(H) 1.70 - 6.10 x10(3)/mc L [facility] Lymph % 11.0 % [facility] Lymphocytes Abs 1.3 0.9 - 3.2 x10(3)/mc L [facility] Monocyte % 6.0 % [facility] Monocyte Abs 0.7 0.3 - 0.9 x10(3)/mc L [facility] Eos % 1.0 % [facility] Eosinophils Abs 0.1 0.0 - 0.4 x10(3)/mc L [facility] Basophil % 0.8 % [facility] Baso Absolute 0.1 0.0 - 0.1 x10(3)/mc L [facility] Immature Gran % 0.80 % [facility] Comment: Immature granulocytes(IG's)percentage and absolute count will include metamyelocytes, myelocytes, and promyelocytes. Blood smears from CBCs yielding IG's will be scanned manually for concordance. If this scan disagrees with the automated IG or if promyelocytes are noted, a manual differential will be performed. Immature Gran Absolute 0.10(H) 0.00 - 0.04 x10(3)/ L [facility] Blood specimen (specimen) 05/13/2016 10:00 AM EST 05/13/2016 10:06 AM EST Narrative Resulting Agency Comment Spec In Lab Que Amaro MD HEMATOLOGY ORD ERABLES [facility] [place] [address] * (ABNORMAL) Hemogram (05/13/2016 10:00 AM EST) White Blood Cell 11.9(H) 4.0 - 9.5 x10(3)/[facility] Red Blood Cell 4.84 4.58 - 5.54 x10(6)/[facility] Hemoglobin 15.7 13.7 - 16.5 gm/dL [facility] Hematocrit 44.1 40.5 - 48.5 % [facility] Mean Cell Volume 91.1 82.9 - 93.1 [facility] Mean Cell Hemoglobin 32.4(H) 27.5 - 32.1 pg [facility] Mean Cell Hemoglobin Concentration 35.6 32.0 - 35.7 gm/dL [facility] Platelet 267 145 - 357 x10(3)/[facility] RDW Standard Deviation 40.6 36.0 - 45.0 [facility] RDW coefficient of variation 12.2 11.4 - 13.8 % [facility] Mean Platelet Volume 9.0 7.6 - 12.9 [facility] NRBC% auto 0.0 % [facility] NRBC Absolute 0.000 0.000 - 0.000 x10(3)/ L [facility] Blood specimen (specimen) 05/13/2016 10:00 AM EST 05/13/2016 10:06 AM EST Narrative Resulting Agency Comment Spec In Lab Que Amaro MD HEMATOLOGY ORD ERABLES Performing Organization Address [facility]/ZIP Co de Phone Number [facility] [place] [address] * Uric acid (05/13/2016 10:00 AM EST) Uric Acid 6.7 3.5 - 8.5 mg/dL [facility] Blood specimen (specimen) 05/13/2016 10:00 AM EST 05/13/2016 10:06 AM EST Narrative Resulting Agency Comment Spec In Lab Que Amaro MD CHEMISTRY ROCHELLE JENNINGS Performing Organization Address [facility] Co de Phone Number [facility] [place] [address] * Tacrolimus level (05/13/2016 10:00 AM EST) Tacrolimus 6.9 ng/mL [facility] Comment: Trough therapeutic: ??5-15 ng/mL Performed by ultra-performance liquid chromatography tandem mass spectrometry (UPLCMS/MS). Blood specimen (specimen) 05/13/2016 10:00 AM EST 05/13/2016 11:05 AM EST Narrative Resulting Agency Comment Spec In Lab Que Amaro MD CHEMISTRY ROCHELLE JENNINGS Performing Organization Address [facility] Co de Phone Number [facility] [place] [address] * Reticulocyte Count (05/13/2016 10:00 AM EST) Reticulocyte % 1.7 0.7 - 2.6 % [facility] Retic Abs # 0.080 0.030 - 0.120 x10(6)/mcL [facility] Immature Retic% 9.5 0.0 - 15.6 % [facility] Reticulated Hgb 37.6 31.3 - 40.2 pg [facility] Blood specimen (specimen) 05/13/2016 10:00 AM EST 05/13/2016 10:06 AM EST Narrative Resulting Agency Comment Spec In Lab Que Amaro MD HEMATOLOGY ORD ERABLES Performing Organization Address City/[facility]/ZIP Co de Phone Number [facility] [place] [address] * Phosphorus (05/13/2016 10:00 AM EST) Phosphorus 2.7 2.5 - 4.5 mg/dL [facility] Blood specimen (specimen) 05/13/2016 10:00 AM EST 05/13/2016 10:06 AM EST Narrative Resulting Agency Comment Spec In Lab Que Amaro MD CHEMISTRY ROCHELLE JENNINGS Performing Organization Address [facility] Co de Phone Number [facility] [place] [address] * (ABNORMAL) Magnesium (05/13/2016 10:00 AM EST) Magnesium 0.57(L) 0.69 - 1.07 mmol/L [facility] Blood specimen (specimen) 05/13/2016 10:00 AM EST 05/13/2016 10:06 AM EST Narrative Resulting Agency Comment Spec In Lab Que Amaro MD CHEMISTRY ORDTiny JENNINGS Performing Organization Address [facility]/ZIP Co de Phone Number [facility] [place] [address] * (ABNORMAL) Comprehensive metabolic panel (non-fasting) (05/13/2016 10:00 AM EST) Glucose 174 65 - 199 mg/dL [facility] Comment:Diabetes: >=200 mg/d L plus symptoms Blood Urea Nitrogen 15 10 - 20 mg/dL [facility] Creatinine 1.39 0.80 - 1.50 mg/dL [facility] Comment: Please note that the pediatric reference intervals supplied above were not validated at [facility]. Results from pediatric patients should be interpreted in conjunction to the patient's age, height and muscle mass. Sodium 136 135 - 145 mmol/L [facility] Potassium 3.9 3.5 - 5.0 mmol/L [facility] Comment: Please note: ??Patients with WBC >100,000 may have falsely elevated Potassium levels. ??For accurate Potassium quantification in these patients send serum separator tube (gold top) for subsequent determinations. ??Contact the Clinical Chemistry Laboratory if there are any questions. Chloride 96(L) 98 - 107 mmol/L [facility] Carbon Dioxide 24 22 - 31 mmol/L [facility] Anion Gap 16(H) 5 - 15 mmol/L [facility] Calcium 9.5 8.5 - 10.5 mg/dL [facility] Protein, Total 7.8 6.1 - 8.0 gm/dL [facility] Albumin 4.0 3.2 - 5.2 gm/dL [facility] Aspartate Aminotransferase 18 0 - 39 unit/L [facility] Alanine Aminotransferase 17 0 - 55 unit/L [facility] Alkaline Phosphatase 63 40 - 120 unit/L [facility] Bilirubin, Total 2.4(H) 0.2 - 1.3 mg/dL [facility] Bilirubin, Direct 0.4(H) 0.0 - 0.3 mg/dL [facility] Est Glomerular Filtration Rate 51(L) >=60 [facility] Comment: [...] the following links into your internet browser. [email or web address] Blood specimen (specimen) 05/13/2016 10:00 AM EST 05/13/2016 10:06 AM EST Narrative Resulting Agency Comment Spec In Lab Que Amaro MD CHEMISTRY ROCHELLE JENNINGS Performing Organization Address [facility] Co de Phone Number [facility] [place] [address] * Cholesterol, total (05/13/2016 10:00 AM EST) Cholesterol, Total 134 <=199 mg/dL [facility] Comment: Recommendations of the NCEP Adult Treatment Panel for the following risk cutoff thresholds for the [place] population: Desirable: <200 mg/dL Borderline High: 200-239 mg/dL High: > or = 240 mg/dL Blood specimen (specimen) 05/13/2016 10:00 AM EST 05/13/2016 10:06 AM EST Narrative Resulting Agency Comment Spec In Lab Que Amaro MD CHEMISTRY ROCHELLE JENNINGS Performing Organization Address [facility] de Phone Number [facility] [place] [address] documented in this encounter Visit Diagnoses Diagnosis Kidney replaced by transplant documented in this encounter Care Teams Supervisor Home Energy Consultant Relationship Specialty Start Date End Date Urbano Denis DO [address] [place] [address] PCP - General 09/03/12 03/17/22 Ruchi Valles RN Nurse Clinic Transplant Surgery 07/30/15 documented as of this encounter
--- OUTSIDE RECORDS SUMMARY | 2024-04-04 14:09 | XMS_ITS | Encounter Summary ---
Author Organization [facility] Address [facility] [place] [address] Care Team Providers Care Agency Legal Counsel Name Role Phone Urbano Denis DO Primary Care Provider [phone] Reason for Visit * Auth/Cert Specialty Diagnoses / Procedures Referred By Humberto flor Referred To Contact Diagnoses Dehydration Referral ID Status Reason Start Date Expiration Date Visits Re quested Visits Authorized [id number] 1 1 Encounter Details Date Type Department Care Team (Late st Contact Info) Description 05/13/2016 12:46 PM EST - 05/13/2016 4:28 PM [facility] [place] [phone] Que Amaro MD [facility] [place] [address] Discharge Disposition: Still a Patient Social History [...] EXTREMITY performed by Que Amaro MD at [facility] OR ??? Pro transplantation of kidney N/A 09/16/2015 @KIDNEY TRANSPLANT, WITHOUT RECIPIENT NEPHRECTOMY performed by Franko Larkin MD at [facility] OR ??? Pro transplant, prep cadaver renal graft N/A 09/16/2015 @PREPARATION CADAVERIC RENAL ALLOGRAFT performed by Franko Larkin MD at [facility] OR ??? N/A 09/16/2015 ORGAN ACQUISITION RENAL, CADAVERIC performed by Franko Larkin MD at [facility] OR Family History: No family history [...] PM EDT Office Visit Cardiology at [address] [phone] Jay Urban MD [facility] [place] [address] 04/15/2024 10:00 AM EDT Hospital Encounter Non-Invasive Cardiology Lab [facility] [place] [phone] Arrived documented as of this encounter Procedures [...] costophrenic angle is not included in the [id number]. Right-sided PICC line terminates at the expected location of SVC. Procedure Note Shanon Brady MD - 05/13/2016 EXAMINATION: XR CHEST PA OR AP 1 VIEW CLINICAL HISTORY: Check PICC position TECHNIQUE: AP portable chest COMPARISON: 04/25/2016 FINDINGS: Cardiomediastinal contours are within normal limits. Lungs are clear. There are no pleural effusions. However, the rightcostophrenic angle is not included in the [id number]. Right-sided PICC line terminates at the expected location of SVC. IMPRESSION 1. No radiographic evidence of active cardiopulmonary disease. 2. The right-sided PICC line terminates at the expected location of SVC. Que Amaro MD IMG DX ORDERAB LES documented in this encounter Visit Diagnoses Diagnosis Dehydration documented in this encounter Admitting Diagnoses Diagnosis Dehydration documented in this encounter Care Teams Agency Legal Counsel Relationship Specialty Start Date End Date Urbano Denis DO [address] [facility] [address] [place] [address] PCP - General 09/03/12 03/17/22 Ruchi Valles RN Nurse Clinic Transplant Surgery 07/30/15 documented as of this encounter
--- OUTSIDE RECORDS SUMMARY | 2024-04-04 14:10 | XMS_ITS | Encounter Summary ---
Author Organization [facility] [place] [address] Care Team Providers Care Automotive Glass Installer Name Role Phone AdeelUrbano toscano Primary Care Provider Reason for Visit * Reason Onset Date Comments Medication Refill 03/20/2016 Encounter Details Date Type Department Care Team (Late st Contact Info) Description 03/20/2016 Refill [place] [address] Samia Escalante, RN Social History [...] PM EDT Office Visit Cardiology at [address] [phone] Jay Urban MD [facility] [place] [address] 04/15/2024 10:00 AM EDT Hospital Encounter Non[place] [address] Arrived documented as of this encounter Visit Diagnoses Not on filedocumented in this encounter Care Teams Automotive Glass Installer Relationship Specialty Start Date End Date Urbano Denis DO [address] [place] [address] PCP - General 09/03/12 03/17/22 Ruchi Valles RN Nurse Clinic Transplant Surgery 07/30/15 documented as of this encounter
--- OUTSIDE RECORDS SUMMARY | 2024-04-04 14:10 | XMS_ITS | Encounter Summary ---
[place] [address] Care Team Providers Care Sack Sewer Name Role Phone Urbano eDnis DO Primary Care Provider Reason for Visit * Reason Onset Date Comments Other 04/07/2016 Encounter Details Date Type Department Care Team (Late st Contact Info) Description 04/07/2016 Telephone [place] [phone] Xiomy Rush, RN Other Social History Tobacco [...] PM EDT Office Visit Cardiology at [address] [phone] [facility] [place] [address] 04/15/2024 10:00 AM EDT Hospital Encounter Non-[place] [phone] Arrived documented as of this encounter Visit Diagnoses Not on filedocumented in this encounter Care Teams Sack Sewer Relationship Specialty Start Date End Date Urbano Denis DO [address] [place] [address] [address] PCP - General 09/03/12 03/17/22 Ruchi Valles RN Nurse Clinic Transplant Surgery 07/30/15 documented as of this encounter
--- OUTSIDE RECORDS SUMMARY | 2024-04-04 14:10 | XMS_ITS | Encounter Summary ---
Author Organization [facility] [place] [address] Care Team Providers Care Senior Facilities Manager Name Role Phone Urbano Denis DO Primary Care Provider [phone] Reason for Visit * Consultation (Routine) - Closed Specialty Diagnoses / Procedures Referred By Humberto flor Referred To Contact Infectious Diseases Diagnoses Bacteremia Dina Moon [facility] [place] [address] [place] [facility] [place] [address] Referral ID Status Reason Start Date Expiration Date V isits Requested Visits Authorized [id number] Closed Assume Subset of Care 02/04/2016 02/03/2017 1 1 Encounter Details Date Type Department Care Team (Late st Contact Info) Description 02/15/2016 10:30 AM EDT Office Visit Infectious [place] [address] Dina Moon [facility] [address] Bacteremia; Pyelonephritis, acute; FDC current use of antibiotics Social History Tobacco [...] pain over kidney, getting antibiotics daily at [facility] through PICC, seen by transplant and urology [...] PM EDT Office Visit Cardiology at [address] [phone] Jay Urban MD [facility] [place] [address] 04/15/2024 10:00 AM EDT Hospital Encounter Non-Invasive [place] [phone] Arrived Scheduled Referrals Name Type Priority Associated Diagnoses Order Schedule OPAT: Order / Recommendation for Post Discharge IV Antibiotic Management Outpatient Referral Routine Bacteremia Ordered: 02/04/2016 documented as of this encounter Visit Diagnoses Diagnosis Bacteremia Pyelonephritis, acute Acute pyelonephritis without lesion of renal medullary necrosis 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
--- OUTSIDE RECORDS SUMMARY | 2024-04-04 14:10 | XMS_ITS | Encounter Summary ---
Author Organization [facility] [place] [address] Care Team Providers Care Rebeamer Name Role Phone Urbano Denis DO Primary Care Provider Encounter Details Date Type Department Care Team (Latest Contact Info) Description 03/25/2016 9:30 AM EDT Laboratory Appointment Lab [address] [place] [address] Kidney replaced by transplant; Hypothyroidism, unspecified type [...] PM EDT Office Visit Cardiology at [address] [phone] Jay Urban MD [facility] [address] [place] [phone] 04/15/2024 10:00 AM EDT Hospital Encounter [place] [address] Arrived documented as of this encounter Procedures [...] Quant Blood Result (03/25/2016 9:59 AM EDT) [facility] BKV Blood Result Not Detected [facility] BKV Blood Interp BK Virus Blood [...] DNA isolated from plasma was performed using [employer] BKV (ASR) reagents and the [employer] 7500 FAST Real-Time PCR System. In addition, the ??PCR product sequence is confirmed using physical properties (melting curve analysis). This test was developed and its performance determined by the [facility]. It has not been cleared or approved by the U.S. Food and Drug Administration. This test is used for clinical purposes and should not be considered investigational or for research purposes. The Molecular Pathology Laboratory is certified by the Clinical Laboratory Improvement Act of 1988 and as such is allowed to perform high complexity clinical testing. [facility] Comment: [VERIFIED DATE]04.08.16 Verified By:Fatemeh Garcia (Electronic Signature) Blood specimen (specimen) 03/25/2016 9:59 AM EDT 03/25/2016 10:54 AM EDT Narrative Resulting Agency Comment Spec In Lab Que Amaro MD HEMATOLOGY ORD ERABLES [facility] [place] [address] * Differential, Automated (03/25/2016 9:59 AM EDT) [facility] Neutrophil % 67.0 % [facility] Neutrophil Absolute 4.46 1.70 - 6.10 x10(3)/mcL [facility] Lymph % 22.9 % [facility] Lymphocytes Abs 1.5 0.9 - 3.2 x10(3)/[facility] Monocyte % 4.8 % [facility] Monocyte Abs 0.3 0.3 - 0.9 x10(3)/[facility] Eos % 3.6 % [facility] Eosinophils Abs 0.2 0.0 - 0.4 x10(3)/[facility] Basophil % 1.3 % [facility] Baso Absolute 0.1 0.0 - 0.1 x10(3)/[facility] Immature Gran % 0.40 % [facility] Comment: Immature granulocytes(IG's)percentage and absolute count will include metamyelocytes, myelocytes, and promyelocytes. Blood smears from CBCs yielding IG's will be scanned manually for concordance. If this scan disagrees with the automated IG or if promyelocytes are noted, a manual differential will be performed. Immature Gran Absolute 0.03 0.00 - 0.04 x10(3)/[facility] Blood specimen (specimen) 03/25/2016 9:59 AM EDT 03/25/2016 10:12 AM EDT Narrative Resulting Agency Comment Spec In Lab Tal Eagle MD HEMATOLOGY ORDERA BLES [facility] [place] [address] * (ABNORMAL) Hemogram (03/25/2016 9:59 AM EDT) White Blood Cell 6.7 4.0 - 9.5 x10(3)/[facility] Red Blood Cell 4.96 4.58 - 5.54 x10(6)/[facility] Hemoglobin 16.0 13.7 - 16.5 gm/dL [facility] Hematocrit 47.0 40.5 - 48.5 % [facility] Mean Cell Volume 94.8(H) 82.9 - 93.1 fL [facility] Mean Cell Hemoglobin 32.3(H) 27.5 - 32.1 pg [facility] Mean Cell Hemoglobin Concentration 34.0 32.0 - 35.7 gm/dL [facility] Platelet 247 145 - 357 x10(3)/mc L [facility] RDW Standard Deviation 48.3(H) 36.0 - 45.0 [facility] RDW coefficient of variation 13.9(H) 11.4 - 13.8 % [facility] Mean Platelet Volume 9.2 7.6 - 12.9 [facility] NRBC% auto 0.0 % [facility] NRBC Absolute 0.000 0.000 - 0.000 x10(3)/mc L [facility] Blood specimen (specimen) 03/25/2016 9:59 AM EDT 03/25/2016 10:12 AM EDT Narrative Resulting Agency Comment Spec In Lab Tal Eagle MD HEMATOLOGY ORDERA BLES Performing Organization Address [facility]/ZIP Co de Phone Number [facility] [place] [address] * Tacrolimus level (03/25/2016 9:59 AM EDT) Tacrolimus 6.5 ng/mL [facility] Comment: Trough therapeutic: ??5-15 ng/mL Performed by ultra-performance liquid chromatography tandem mass spectrometry (UPLCMS/MS). Blood specimen (specimen) 03/25/2016 9:59 AM EDT 03/25/2016 11:14 AM EDT Narrative Resulting Agency Comment Spec In Lab Que Amaro MD CHEMISTRY ROCHELLE JENNINGS Performing Organization Address City/[facility]/ZIP Co de Phone Number [facility] [place] [address] * (ABNORMAL) TSH (03/25/2016 9:59 AM EDT) Thyroid Stimulating Hormone 5.38(H) 0.27 - 4.20 mcIU/mL [facility] Blood specimen (specimen) 03/25/2016 9:59 AM EDT 03/25/2016 10:12 AM EDT Narrative Resulting Agency Comment Spec In Lab Que Amaro MD CHEMISTRY ROCHELLE JENNINGS [facility] [place] [address] * (ABNORMAL) Comprehensive metabolic panel (non-fasting) (03/25/2016 9:59 AM EDT) Glucose 152 65 - 199 mg/dL [facility] Comment:Diabetes: >=200 mg/d L plus symptoms Blood Urea Nitrogen 18 10 - 20 mg/dL [facility] Creatinine 1.65(H) 0.80 - 1.50 mg/dL [facility] Comment: Please note that the pediatric reference intervals supplied above were not validated at [facility]. Results from pediatric patients should be interpreted in conjunction to the patient's age, height and muscle mass. Sodium 139 135 - 145 mmol/L [facility] Potassium 4.7 3.5 - 5.0 mmol/L [facility] Anion Gap 17(H) 5 - 15 mmol/L [facility] Calcium 10.0 8.5 - 10.5 mg/dL [facility] Protein, Total 7.8 6.1 - 8.0 gm/dL [facility] Albumin 4.4 3.2 - 5.2 gm/dL [facility] Aspartate Aminotransferase 30 0 - 39 unit/L [facility] Alanine Aminotransferase 28 0 - 55 unit/L [facility] Alkaline Phosphatase 61 40 - 120 unit/L [facility] Bilirubin, Total 1.6(H) 0.2 - 1.3 mg/dL [facility] Bilirubin, Direct 0.4(H) 0.0 - 0.3 mg/dL [facility] Est Glomerular Filtration Rate 42(L) >=60 [facility] [...] the following links into your internet browser. [email or web address] Blood specimen (specimen) 03/25/2016 9:59 AM EDT 03/25/2016 10:12 AM EDT Narrative Resulting Agency Comment Spec In Lab Tal Eagle MD CHEMISTRY ORDERAB LES Performing Organization Address City/[facility]/ZIP Co de Phone Number [facility] [place] [address] * (ABNORMAL) Magnesium (03/25/2016 9:59 AM EDT) Magnesium 0.66(L) 0.69 - 1.07 mmol/L [facility] Blood specimen (specimen) 03/25/2016 9:59 AM EDT 03/25/2016 10:12 AM EDT Narrative Resulting Agency Comment Spec In Lab Tal Eagle MD CHEMISTRY ORDERAB LES Performing Organization Address City/[facility]/ZIP Co de Phone Number [facility] [place] [address] * Phosphorus (03/25/2016 9:59 AM EDT) Phosphorus 2.7 2.5 - 4.5 mg/dL [facility] Blood specimen (specimen) 03/25/2016 9:59 AM EDT 03/25/2016 10:12 AM EDT Narrative Resulting Agency Comment Spec In Lab Tal Eagle MD CHEMISTRY ORDERAB LES Performing Organization Address [facility] Co de Phone Number [facility] [place] [address] * (ABNORMAL) Uric acid (03/25/2016 9:59 AM EDT) Pathologist [facility] Uric Acid 9.3(H) 3.5 - 8.5 mg/dL [facility] Blood specimen (specimen) 03/25/2016 9:59 AM EDT 03/25/2016 10:12 AM EDT Narrative Resulting Agency Comment Spec In Lab Tal Eagle MD CHEMISTRY ORDERAB LES Performing Organization Address [facility] Co de Phone Number [facility] [place] [address] * Reticulocyte Count (03/25/2016 9:59 AM EDT) [facility] Reticulocyte % 2.0 0.7 - 2.6 % [facility] Retic Abs # 0.100 0.030 - 0.120 x10(6)/mcL [facility] Immature Retic% 5.7 0.0 - 15.6 % [facility] Reticulated Hgb 37.9 31.3 - 40.2 pg [facility] Blood specimen (specimen) 03/25/2016 9:59 AM EDT 03/25/2016 10:12 AM EDT Narrative Resulting Agency Comment Spec In Lab Tal Eagle MD HEMATOLOGY ORDERA BLES Performing Organization Address [facility] Co de Phone Number [facility] [place] [address] * Cholesterol, total (03/25/2016 9:59 AM EDT) Cholesterol, Total 145 <=199 mg/dL [facility] Comment: Recommendations of the NCEP Adult Treatment Panel for the following risk cutoff thresholds for the [place] population: Desirable: <200 mg/dL Borderline High: 200-239 mg/dL High: > or = 240 mg/dL Blood specimen (specimen) 03/25/2016 9:59 AM EDT 03/25/2016 10:12 AM EDT Narrative Resulting Agency Comment Spec In Lab Tal Eagle MD CHEMISTRY ORDERAB LES Performing Organization Address [facility]/ZIP Co de Phone Number [facility] [place] [address] * (ABNORMAL) Urine culture (03/25/2016 9:57 AM EDT) Urine Culture 1,000-9,000 cfu/ml Gram Positive organisms , probable contaminant(A ) [facility] Urine specimen (specimen) 03/25/2016 9:57 AM EDT 03/25/2016 10:44 AM EDT Narrative Resulting Agency Comment Spec In Lab Que Amaro MD MICROBIOLOGY - GENERAL ORDERABLES Performing Organization Address [facility] Co de Phone Number [facility] [place] [address] * (ABNORMAL) Urinalysis with reflex Culture (03/25/2016 [...] [facility] Leukocytes, Urine Dipstick Small(A) Negative [facility] Appearance, Urine Dipstick Clear Clear [facility] Specific [place] Urine Automated 1.024 1.002 - 1.030 [facility] Color, Urine Dipstick Yellow Yellow [facility] RBC, Urine 2 0 - 3 /HPF [facility] WBC, Urine 13(H) 0 - 3 /HPF [facility] Bacteria, Urine Rare(A) None /HPF [facility] Squamous Epithelial Cells, Urine <1 <=4 /HPF [facility] Renal Epithelial Cells, Urine <1(H) <=0 /HPF [facility] Reflex to Culture Yes [facility] Urine specimen (specimen) 03/25/2016 9:57 AM EDT 03/25/2016 10:06 AM EDT Narrative Resulting Agency Comment Spec In Lab Que Amaro MD URINE ORDERABL ES Performing Organization Address City/State/[facility] Co de Phone Number [facility] [place] [address] * (ABNORMAL) Protein/Creatinine Ratio, urine (03/25/2016 9:57 AM EDT) Creatinine, Urine 137 mg/dL [facility] Protein, Urine 40(H) 0 - 12 mg/dL [facility] Protein / Creatinine Ratio, Urine 0.3 ratio [facility] Urine specimen (specimen) 03/25/2016 9:57 AM EDT 03/25/2016 10:01 AM EDT Narrative Resulting Agency Comment Spec In Lab Tal Eagle MD URINE ORDERABLES [facility] [place] [address] documented in this encounter Visit Diagnoses Diagnosis Kidney replaced by transplant Hypothyroidism, unspecified type documented in this encounter Care Teams Rebeamer Relationship Specialty Start Date End Date Urbano Denis DO [address] [place] [address] PCP - General 09/03/12 03/17/22 Ruchi Valles RN Nurse Clinic Transplant Surgery 07/30/15 documented as of this encounter
--- OUTSIDE RECORDS SUMMARY | 2024-04-04 14:10 | XMS_ITS | Encounter Summary ---
[place] [address] Care Team Providers Care Lump Machine Operator Name Role Phone Urbano Denis DO Primary Care Provider [phone] Reason for Referral * Diagnostic Test (Routine) - Closed Specialty Diagnoses / Procedures Referred By Humberto flor Referred To Contact Radiology Diagnoses Kidney replaced by transplant Procedures IR all procedures Que Amaro MD [facility] [place] [address] [place] [address] Referral ID Status Reason Start Date Expiration Date V isits Requested Visits Authorized [id number] Closed Specialty Service Requested 02/26/2016 02/25/2017 1 1 Encounter Details Date Type Department Care Team (Late st Contact Info) Description 02/26/2016 10:30 AM EDT Office Visit [place] [address] Que Amaro MD [facility] [place] [address] Kidney replaced by transplant Social [...] EXTREMITY performed by Que Amaro MD at [facility] OR ??? Pro transplantation of kidney N/A 09/16/2015 @KIDNEY TRANSPLANT, WITHOUT RECIPIENT NEPHRECTOMY performed by Franko Larkin MD at [facility] OR ??? Pro transplant, prep cadaver renal graft N/A 09/16/2015 @PREPARATION CADAVERIC RENAL ALLOGRAFT performed by Franko Larkin MD at [facility] OR ??? N/A 09/16/2015 ORGAN ACQUISITION RENAL, CADAVERIC performed by Franko Larkin MD at [facility] OR Family History: No family history [...] clinic: 1 month. Cody Zavala, MS4 Transplant Sub-application internship Pg [phone] I have seen the patient and reviewed [...] Bell, RD - 02/26/2016 10:30 AM EDT [facility] Post Transplant Nutrition Follow Up Date: 02/27/2016 Patient: Cody Bolden Transplant Date: 09/16/15 [place] organ UNOS diagnosis: Transplant: Mr. Cody Bolden [...] Value Date CHLPL 140 02/26/2016 Assessment: This database report writer reviewed patient's labs with him and [...] PM EDT Office Visit Cardiology at [address] [place] [address] Jay Urban MD [facility] [place] [id number] 04/15/2024 10:00 AM EDT Hospital Encounter Non-Invasive [place] [address] Arrived Scheduled Orders Name Type Priority Associated [...] was prepped and draped in supine position. Curb Attendant image obtained. Contrast injection confirmed catheter location. [...] antegrade study. Resident/Fellow: ??Henrique Restrepo Attending: Dr. Ellsworth, I was present throughout this procedure. Que Amaro MD [facility] IR ORDERAB LES * BK Quant Urine Result (02/26/2016 10:00 AM EDT) BKV Urine Result Positive [facility] BKV Urine Interp BK [...] DNA isolated from urine was performed using [employer] BKV (ASR) reagents and the [employer] 7500 FAST Real-Time PCR System. In addition, the PCR product sequence is confirmed using physical properties (melting curve analysis). This test was developed and its performance determined by the [facility]ology [facility]. It has not been cleared or approved by the U.S. Food and Drug Administration. This test is used for clinical purposes and should not be considered investigational or for research purposes. The Molecular Pathology Laboratory is certified by the Clinical Laboratory Improvement Act of 1988 and as such is allowed to perform high complexity clinical testing. [facility] Comment: [VERIFIED DATE]02.29.16 Verified By:Jimmy Gleason (Electronic Signature) Urine specimen (specimen) 02/26/2016 10:00 AM EDT 02/26/2016 2:24 PM EDT Narrative Resulting Agency Comment Spec In Lab Que Amaro MD HEMATOLOGY ORD ERABLES Performing Organization Address [facility] Co de Phone Number [facility] [place] [place] [address] * Urine culture (02/26/2016 10:00 AM EDT) Pathologist [facility] Urine Culture No growth (Less than 1,000 cfu/ml). [facility] Urine specimen obtained by clean catch procedure (specimen) 02/26/2016 10:00 AM EDT 02/26/2016 10:52 AM EDT Narrative Resulting Agency Comment Spec In Lab Que Amaro MD MICROBIOLOGY - GENERAL ORDERABLES Performing Organization Address [facility] Co de Phone Number [facility] [place] [place] [address] * Green Tube HOLD (02/26/2016 10:00 AM EDT) Pathologist [facility] Green Hold Sample in lab. [facility] Blood specimen (specimen) Venous Draw / Unknown 02/26/2016 10:00 AM EDT 02/26/2016 10:26 AM EDT Tal Eagle MD CHEMISTRY ORDERAB LES Performing Organization Address [facility] Co de Phone Number [facility] [place] [address] * Differential, Automated (02/26/2016 10:00 AM EDT) Neutrophil % 67.9 % [facility] Neutrophil Absolute 4.65 1.50 - 6.30 x10(3)/[facility] Lymph % 23.0 % [facility] Lymphocytes Abs 1.6 1.0 - 3.6 x10(3)/[facility] Monocyte % 4.2 % [facility] Monocyte Abs 0.3 0.2 - 1.0 x10(3)/[facility] Eos % 3.5 % [facility] Eosinophils Abs 0.2 0.0 - 0.5 x10(3)/[facility] Basophil % 1.0 % [facility] Baso Absolute 0.1 0.0 - 0.2 x10(3)/[facility] Immature Gran % 0.40 % [facility] Comment: Immature granulocytes(IG's)percentage and absolute count will include metamyelocytes, myelocytes, and promyelocytes. Blood smears from CBCs yielding IG's will be scanned manually for concordance. If this scan disagrees with the automated IG or if promyelocytes are noted, a manual differential will be performed. Immature Gran Absolute 0.03 0.00 - 0.05 x10(3)/[facility] Blood specimen (specimen) 02/26/2016 10:00 AM EDT 02/26/2016 10:25 AM EDT Narrative Resulting Agency Comment Spec In Lab Que Amaro MD HEMATOLOGY ORD ERABLES [facility] [place] [address] * (ABNORMAL) Hemogram (02/26/2016 10:00 AM EDT) White Blood Cell 6.9 4.0 - 10.0 x10(3)/mc L [facility] Red Blood Cell 4.53(L) 4.63 - 6.08 x10(6)/mc L [facility] Hemoglobin 14.5 13.7 - 17.5 gm/dL [facility] Hematocrit 41.2 40.0 - 51.0 % [facility] Mean Cell Volume 90.9 79.0 - 92.0 fL [facility] Mean Cell Hemoglobin 32.0 25.6 - 32.2 pg [facility] Mean Cell Hemoglobin Concentration 35.2 32.0 - 36.5 gm/dL [facility] Platelet 189 145 - 370 x10(3)/mc L [facility] RDW Standard Deviation 48.6(H) 35.0 - 46.0 fL [facility] RDW coefficient of variation 14.7(H) 10.9 - 14.4 % [facility] Mean Platelet Volume 9.3 9.0 - 12.0 fL [facility] NRBC% auto 0.0 % [facility] NRBC Absolute 0.000 0.000 - 0.012 x10(3)/mc L [facility] Blood specimen (specimen) 02/26/2016 10:00 AM EDT 02/26/2016 10:25 AM EDT Narrative Resulting Agency Comment Spec In Lab Que Amaro MD HEMATOLOGY ORD MILAGROS Performing Organization Address [facility] Co de Phone Number [facility] [place] [address] * Tacrolimus level (02/26/2016 10:00 AM EDT) Pathologist [facility] Tacrolimus 8.5 ng/mL [facility] Comment: Trough therapeutic: ??5-15 ng/mL Performed by ultra-performance liquid chromatography tandem mass spectrometry (UPLCMS/MS). Blood specimen (specimen) 02/26/2016 10:00 AM EDT 02/26/2016 11:05 AM EDT Narrative Resulting Agency Comment Spec In Lab Que Amaro MD CHEMISTRY ORDBhargav JENNINGS Performing Organization Address [facility]/ZIP Co de Phone Number [facility] [place] [address] * (ABNORMAL) Urinalysis with reflex Culture (02/26/2016 10:00 AM EDT) Glucose, Urine Dipstick Negative Negative mg/dL [facility] Protein, Urine Dipstick Negative Negative mg/dL [facility] Bilirubin, [...] [facility] pH, Urn (dipstick) 6.0 5.0 - 8.0 [facility] Blood, Urine Dipstick Negative Negative mg/dL [facility] Ketone, Urine Dipstick Negative Negative mg/dL [facility] Nitrite, Urine Dipstick Negative Negative [facility] Leukocytes, Urine Dipstick Small(A) Negative [facility] Appearance, Urine Dipstick Clear Clear [facility] Specific [place] Urine Automated 1.014 1.002 - 1.030 [facility] Color, Urine Dipstick Yellow Yellow [facility] RBC, Urine 1 0 - 3 /HPF [facility] WBC, Urine 4(H) 0 - 3 /HPF [facility] Reflex to Culture Yes [facility] Urine specimen obtained by clean catch procedure (specimen) 02/26/2016 10:00 AM EDT 02/26/2016 10:26 AM EDT Narrative Resulting Agency Comment Spec In Lab Que Amaro MD URINE ORDERABL ES [facility] [place] [address] * (ABNORMAL) Reticulocyte Count (02/26/2016 10:00 AM EDT) Reticulocyte % 2.7(H) 0.5 - 2.4 % [facility] Retic Abs # 0.120(H) 0.027 - 0.095 x10(6)/mc L [facility] Immature Retic% 11.4 2.3 - 15.9 % [facility] Reticulated Hgb 39.5(H) 28.5 - 38.9 pg [facility] Blood specimen (specimen) 02/26/2016 10:00 AM EDT 02/26/2016 10:25 AM EDT Narrative Resulting Agency Comment Spec In Lab Que Amaro MD HEMATOLOGY ORD ERABLES Performing Organization Address City/[facility]/ZIP Co de Phone Number [facility] [place] [address] * (ABNORMAL) Uric acid (02/26/2016 10:00 AM EDT) Uric Acid 8.6(H) 3.5 - 8.5 mg/dL [facility] Blood specimen (specimen) 02/26/2016 10:00 AM EDT 02/26/2016 10:25 AM EDT Narrative Resulting Agency Comment Spec In Lab Que Amaro MD CHEMISTRY ROCHELLE JENNINGS Performing Organization Address [facility] Co de Phone Number [facility] [place] [address] * (ABNORMAL) Magnesium (02/26/2016 10:00 AM EDT) Magnesium 0.59(L) 0.69 - 1.07 mmol/L [facility] Blood specimen (specimen) 02/26/2016 10:00 AM EDT 02/26/2016 10:25 AM EDT Narrative Resulting Agency Comment Spec In Lab Que Amaro MD CHEMISTRY ROCHELLE JENNINGS Performing Organization Address [facility] Co de Phone Number [facility] [place] [address] * Phosphorus (02/26/2016 10:00 AM EDT) Phosphorus 2.5 2.5 - 4.5 mg/dL [facility] Blood specimen (specimen) 02/26/2016 10:00 AM EDT 02/26/2016 10:25 AM EDT Narrative Resulting Agency Comment Spec In Lab Que Amaro MD CHEMISTRY ROCHELLE JENNINGS [facility] [place] [address] * (ABNORMAL) Comprehensive metabolic panel (non-fasting) (02/26/2016 10:00 AM EDT) Glucose 141 65 - 199 mg/dL [facility] Comment:Diabetes: >=200 mg/d L plus symptoms Blood Urea Nitrogen 17 10 - 20 mg/dL [facility] Creatinine 1.56(H) 0.80 - 1.50 mg/dL [facility] Comment: Please note that the pediatric reference intervals supplied above were not validated at [facility]. Results from pediatric patients should be interpreted in conjunction to the patient's age, height and muscle mass. Sodium 138 135 - 145 mmol/L [facility] Potassium 3.9 3.5 - 5.0 mmol/L [facility] [...] mg/dL [facility] Protein, Total 7.6 6.1 - 8.0 gm/dL [facility] Albumin 4.3 3.2 - 5.2 gm/dL [facility] Aspartate Aminotransferase 30 0 - 39 unit/L [facility] Alanine Aminotransferase 30 0 - 55 unit/L [facility] Alkaline Phosphatase 71 40 - 120 unit/L [facility] Bilirubin, Total 1.0 0.2 - 1.3 mg/dL [facility] Bilirubin, Direct 0.2 0.0 - 0.3 mg/dL [facility] Est Glomerular Filtration Rate 45(L) >=60 [facility] Comment: This [...] the following links into your internet browser. [email or web address] Blood specimen (specimen) 02/26/2016 10:00 AM EDT 02/26/2016 10:25 AM EDT Narrative Resulting Agency Comment Spec In Lab Que Amaro MD CHEMISTRY ORDBhargav JENNINGS Performing Organization Address City/[facility]/ZIP Co de Phone Number [facility] [place] [address] * Cholesterol, total (02/26/2016 10:00 AM EDT) Cholesterol, Total 140 <=199 mg/dL [facility] Comment: Recommendations of the NCEP Adult Treatment Panel for the following risk cutoff thresholds for the [place] population: Desirable: <200 mg/dL Borderline High: 200-239 mg/dL High: > or = 240 mg/dL Blood specimen (specimen) 02/26/2016 10:00 AM EDT 02/26/2016 10:25 AM EDT Narrative Resulting Agency Comment Spec In Lab Que Aamro MD CHEMISTRY ROCHELLE JENNINGS Performing Organization Address City/[facility]/ZIP Co de Phone Number [facility] [place] [address] documented in this encounter Visit Diagnoses Diagnosis 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
--- OUTSIDE RECORDS SUMMARY | 2024-04-04 14:10 | XMS_ITS | Encounter Summary ---
Author Organization [facility] Address [facility] [place] [address] Care Team Providers Care Projection Technician Name Role Phone Urbano Denis DO Primary Care Provider [phone] Reason for Visit * Reason Comments Follow-up Encounter Details Date Type Department Care Team (Late st Contact Info) Description 02/12/2016 7:30 AM EDT [place] [address] Santosh Arredondo MD [facility] [place] [address] Ureteral stricture of left kidney transplant Social [...] PM EDT Office Visit Cardiology at [address] [address] Jay Urban MD [facility] [place] [address] 04/15/2024 10:00 AM EDT Hospital Encounter Non-Invasive [place] [address] Arrived documented as of this encounter Visit Diagnoses Diagnosis Ureteral stricture of left kidney transplant Complications of transplanted kidney documented in this encounter Care Teams Projection Technician Relationship Specialty Start Date End Date Urbano Denis DO [address] [place] [address] PCP - General 09/03/12 03/17/22 Ruchi Valles RN Nurse Clinic Transplant Surgery 07/30/15 documented as of this encounter
--- OUTSIDE RECORDS SUMMARY | 2024-04-04 14:10 | XMS_ITS | Encounter Summary ---
Author Organization [facility] [place] [address] Care Team Providers Care Machine Fitter Name Role Phone Urbano Denis DO Primary Care Provider [phone] Encounter Details Date Type Department Care Team (Late st Contact Info) Description 03/25/2016 10:30 AM EDT Office [place] [address] Jennifer Amaro MD [facility] [place] [address] Kidney replaced by transplant; Chronic hepatitis C [...] EXTREMITY performed by Jennifer Amaro MD at [facility] OR ??? Pro transplantation of kidney N/A 09/16/2015 @KIDNEY TRANSPLANT, WITHOUT RECIPIENT NEPHRECTOMY performed by Franko Larkin MD at [facility] MA[facility] OR ??? Pro transplant, prep cadaver renal graft N/A 09/16/2015 @PREPARATION CADAVERIC RENAL ALLOGRAFT performed by Franko Larkin MD at [facility] MA[facility] OR ??? N/A 09/16/2015 ORGAN ACQUISITION RENAL, CADAVERIC performed by Franko Larkin MD at [facility] MA[facility] OR Family History: No [...] Bell, RD - 03/25/2016 10:30 AM EDT [facility] Post Transplant Nutrition Follow Up Date: 03/25/2016 Patient: Cody Bolden Transplant Date: 09/16/15 [place] organ UNOS diagnosis: Transplant: Mr. Cody Bolden [...] Value Date CHLPL 145 03/25/2016 Assessment: This writer producer reviewed patient's labs with him and his . Serum magnesium and phosphorus improving. Reviewed magnesium-rich foods. Plan: Follow up next clinic visit and prn. documented in this encounter Plan of Treatment Upcoming Encounters Date Type Department Care Team (Late st Contact Info) Description 04/08/2024 1:40 PM EDT Office Visit Cardiology at [address] [address] Jay Urban MD [facility] [place] [address] 04/15/2024 10:00 AM EDT Hospital Encounter Non-[place] [phone] Arrived Scheduled Orders Name Type Priority Associated [...] (03/25/2016 9:59 AM EDT) Tacrolimus 6.5 ng/mL [facility] Comment: Trough therapeutic: ??5-15 ng/mL Performed by ultra-performance liquid chromatography tandem mass spectrometry (UPLCMS/MS). Blood specimen (specimen) 03/25/2016 9:59 AM EDT 03/25/2016 11:14 AM EDT Narrative Resulting Agency Comment Spec In Lab Jennifer Amaro MD CHEMISTRY ROCHELLE JENNIGNS [facility] [place] [address] * (ABNORMAL) Urinalysis with reflex Culture (03/25/2016 [...] HOSPITAL LABORATORY Leukocytes, Urine Dipstick Small(A) Negative [facility] Appearance, Urine Dipstick Clear Clear [facility] Specific [place] Urine Automated 1.024 1.002 - 1.030 [facility] [...] Lab Jennifer Amaro MD URINE ORDERABL ES [facility] [place] [id number] documented in this encounter Visit Diagnoses Diagnosis [...] kidney documented in this encounter Care Teams Machine Fitter Relationship Specialty Start Date End Date Urbano Denis DO [address] [place] [address] PCP - General 09/03/12 03/17/22 Ruchi Valles RN Nurse Clinic Transplant Surgery 07/30/15 documented as of this encounter
--- OUTSIDE RECORDS SUMMARY | 2024-04-04 14:10 | XMS_ITS | Encounter Summary ---
Author Organization [facility] [place] [address] Care Team Providers Care Bilingual Case Manager Name Role Phone Urbano Denis DO Primary Care Provider Reason for Visit * Auth/Cert Specialty Diagnoses / Procedures Referred By Humberto t Referred To Contact Diagnoses Fever FEVER, S/P KIDNEY TRANSPLANT Referral ID Status Reason Start Date Expiration Date Visits Re quested Visits Authorized [id number] 1 1 Encounter Details Date Type Department Care Team (Latest Contact Info) Description 04/23/2016 10:00 AM EDT Laboratory Appointment Lab [address] [place] [address] Kidney replaced by transplant Social [...] PM EDT Office Visit Cardiology at [address] [phone] Jay Urban MD [facility] [address] [place] [address] 04/15/2024 10:00 AM EDT Hospital Encounter Non-Invasive [place] [address] Arrived documented as of [...] Gram Positive organisms , probable contaminant(A ) [facility] Urine specimen (specimen) 04/23/2016 10:37 AM EDT 04/23/2016 11:19 AM EDT Narrative Resulting Agency Comment Spec In Lab Que Amaro MD MICROBIOLOGY - GENERAL ORDERABLES Performing Organization Address [facility] Co de Phone Number [facility] [place] [address] * (ABNORMAL) Protein/Creatinine Ratio, urine (04/23/2016 10:37 AM EDT) Creatinine, Urine 166 mg/dL [facility] Protein, Urine 38(H) 0 - 12 mg/dL [facility] Protein / Creatinine Ratio, Urine 0.2 ratio [facility] Urine specimen (specimen) 04/23/2016 10:37 AM EDT 04/23/2016 10:44 AM EDT Narrative Resulting Agency Comment Spec In Lab Que Amaro MD URINE ORDERABL ES Performing Organization Address [facility] Co de Phone Number [facility] [place] [address] * (ABNORMAL) Urinalysis with reflex Culture (04/23/2016 [...] CENTER LABORATORY Leukocytes, Urine Dipstick Negative Negative [facility] Appearance, Urine Dipstick Clear Clear [facility] Specific [place] Urine Automated 1.028 1.002 - 1.030 [facility] Color, Urine Dipstick Yellow Yellow [facility] RBC, Urine 24(H) 0 - 3 /HPF [facility] WBC, Urine 7(H) 0 - 3 /HPF [facility] Squamous Epithelial Cells, Urine <1 <=4 /HPF [facility] Reflex to Culture Yes [facility] Urine specimen (specimen) 04/23/2016 10:37 AM EDT 04/23/2016 10:44 AM EDT Narrative Resulting Agency Comment Spec In Lab Que Amaro MD URINE ORDERABL ES [facility] [place] [address] * BK Quant Blood Result (04/23/2016 10:29 AM EDT) BKV Blood Result Not Detected [facility] [...] DNA isolated from plasma was performed using Eragen BKV (ASR) reagents and the [employer] Insights 7500 FAST Real-Time PCR System. In addition, the ??PCR product sequence is confirmed using physical properties (melting curve analysis). This test was developed and its performance determined by the [facility]ology [facility]. It has not been cleared or approved by the U.S. Food and Drug Administration. This test is used for clinical purposes and should not be considered investigational or for research purposes. The Molecular Pathology Laboratory is certified by the Clinical Laboratory Improvement Act of 1988 and as such is allowed to perform high complexity clinical testing. [facility] Comment: [VERIFIED DATE]05.01.16 Verified By:Jimmy Gleason (Electronic Signature) Blood specimen (specimen) 04/23/2016 10:29 AM EDT 04/23/2016 11:32 AM EDT Narrative Resulting Agency Comment Spec In Lab Que Amaro MD HEMATOLOGY ORD ERABLES Performing Organization Address City/State/[facility] Co de Phone Number [facility] [place] [address] * (ABNORMAL) Differential, Automated (04/23/2016 10:29 AM EDT) Neutrophil % 70.9 % [facility] Neutrophil Absolute 4.21 1.70 - 6.10 x10(3)/mc L [facility] Lymph % 21.5 % [facility] Lymphocytes Abs 1.3 0.9 - 3.2 x10(3)/mc L [facility] Monocyte % 3.9 % [facility] Monocyte Abs 0.2(L) 0.3 - 0.9 x10(3)/mc L [facility] Eos % 2.2 % [facility] Eosinophils Abs 0.1 0.0 - 0.4 x10(3)/mc L [facility] Basophil % 1.2 % [facility] Baso Absolute 0.1 0.0 - 0.1 x10(3)/mc L [facility] Blood specimen (specimen) 04/23/2016 10:29 AM EDT 04/23/2016 10:36 AM EDT Narrative Resulting Agency Comment Spec In Lab Que Amaro MD HEMATOLOGY ORD ERABLES [facility] [place] [address] * (ABNORMAL) Hemogram (04/23/2016 10:29 AM EDT) White Blood Cell 5.9 4.0 - 9.5 x10(3)/ L [facility] Red Blood Cell 4.93 4.58 - 5.54 x10(6)/mc L [facility] Hemoglobin 16.2 13.7 - 16.5 gm/dL [facility] Hematocrit 46.0 40.5 - 48.5 % [facility] Mean Cell Volume 93.3(H) 82.9 - 93.1 fL [facility] Mean Cell Hemoglobin 32.9(H) 27.5 - 32.1 pg [facility] Mean Cell Hemoglobin Concentration 35.2 32.0 - 35.7 gm/dL [facility] Platelet 231 145 - 357 x10(3)/mc L [facility] RDW Standard Deviation 44.1 36.0 - 45.0 [facility] RDW coefficient of variation 13.0 11.4 - 13.8 % [facility] Mean Platelet Volume 9.1 7.6 - 12.9 [facility] NRBC% auto 0.0 % [facility] NRBC Absolute 0.000 0.000 - 0.000 x10(3)/mc L [facility] Blood specimen (specimen) 04/23/2016 10:29 AM EDT 04/23/2016 10:36 AM EDT Narrative Resulting Agency Comment Spec In Lab Que Amaro MD HEMATOLOGY ORD ERABLES [facility] [place] [address] * (ABNORMAL) Basic Metabolic Panel (non-fasting) (04/23/2016 10:29 AM EDT) Glucose 215(H) 65 - 199 mg/dL [facility] Comment:Diabetes: >=200 mg/d L plus symptoms Blood Urea Nitrogen 21(H) 10 - 20 mg/dL [facility] Creatinine 1.44 0.80 - 1.50 mg/dL [facility] Comment: Please note that the pediatric reference intervals supplied above were not validated at [facility]. Results from pediatric patients should be interpreted in conjunction to the patient's age, height and muscle mass. Sodium 138 135 - 145 mmol/L [facility] [...] [facility] Carbon Dioxide 22 22 - 31 mmol/L [facility] Anion Gap 15 5 - 15 mmol/L [facility] Calcium 9.6 8.5 - 10.5 mg/dL [facility] Est Glomerular Filtration Rate 49(L) >=60 [facility] Comment: This estimated [...] the following links into your internet browser. [email or web address] Blood specimen (specimen) 04/23/2016 10:29 AM EDT 04/23/2016 10:36 AM EDT Narrative Resulting Agency Comment Spec In Lab Que Amaro MD CHEMISTRY ROCHELLE JENNINGS Performing Organization Address [facility] Co de Phone Number [facility] [place] [address] * (ABNORMAL) Magnesium (04/23/2016 10:29 AM EDT) Magnesium 0.64(L) 0.69 - 1.07 mmol/L [facility] Blood specimen (specimen) 04/23/2016 10:29 AM EDT 04/23/2016 10:36 AM EDT Narrative Resulting Agency Comment Spec In Lab Que Amaro MD CHEMISTRY ORDBhargav JENNINGS Performing Organization Address [facility] Co de Phone Number [facility] [place] [address] * Phosphorus (04/23/2016 10:29 AM EDT) Phosphorus 2.7 2.5 - 4.5 mg/dL [facility] Blood specimen (specimen) 04/23/2016 10:29 AM EDT 04/23/2016 10:36 AM EDT Narrative Resulting Agency Comment Spec In Lab Que Amaro MD CHEMISTRY ROCHELLE JENNINGS Performing Organization Address [facility] Co de Phone Number [facility] [place] [address] * Uric acid (04/23/2016 10:29 AM EDT) Uric Acid 8.1 3.5 - 8.5 mg/dL [facility] Blood specimen (specimen) 04/23/2016 10:29 AM EDT 04/23/2016 10:36 AM EDT Narrative Resulting Agency Comment Spec In Lab Que Amaro MD CHEMISTRY ROCHELLE JENNINGS Performing Organization Address [facility] Co de Phone Number [facility] [place] [address] * Tacrolimus level (04/23/2016 10:29 AM EDT) Tacrolimus 6.3 ng/mL [facility] Comment: Trough therapeutic: ??5-15 ng/mL Performed by ultra-performance liquid chromatography tandem mass spectrometry (UPLCMS/MS). Blood specimen (specimen) 04/23/2016 10:29 AM EDT 04/23/2016 11:47 AM EDT Narrative Resulting Agency Comment Spec In Lab Que Amaro MD CHEMISTRY ROCHELLE JENNINGS Performing Organization Address [facility] Co de Phone Number [facility] [place] [address] * Reticulocyte Count (04/23/2016 10:29 AM EDT) Reticulocyte % 1.8 0.7 - 2.6 % [facility] Retic Abs # 0.090 0.030 - 0.120 x10(6)/mcL [facility] Immature Retic% 5.6 0.0 - 15.6 % [facility] Reticulated Hgb 38.9 31.3 - 40.2 pg [facility] Blood specimen (specimen) 04/23/2016 10:29 AM EDT 04/23/2016 10:36 AM EDT Narrative Resulting Agency Comment Spec In Lab Que Amaro MD HEMATOLOGY ORD ERABLES [facility] [place] [address] * Cholesterol, total (04/23/2016 10:29 AM EDT) Cholesterol, Total 128 <=199 mg/dL [facility] [...] MD CHEMISTRY ROCHELLE JENNINGS Performing Organization Address [facility]/ZIP Co de Phone Number [facility] [place] [address] documented in this encounter Visit Diagnoses Diagnosis Kidney replaced by transplant documented in this encounter Care Teams Bilingual Case Manager Relationship Specialty Start Date End Date Urbano Denis DO [address] [place] [address] PCP - General 09/03/12 03/17/22 Ruchi Valles RN Nurse Clinic Transplant Surgery 07/30/15 documented as of this encounter
--- OUTSIDE RECORDS SUMMARY | 2024-04-04 14:10 | XMS_ITS | Encounter Summary ---
[place] [address] Care Team Providers Care Tower Loader Operator Name Role Phone Albania Denis DO Primary Care Provider [phone] Reason for Referral * Consultation (Routine) - Closed Specialty Diagnoses / Procedures Referred By Humberto flor Referred To Contact Infectious Diseases Diagnoses Bacteremia due to coagulase-negative Staphylococcus Ramez Serrano DO [facility] [place] [address] [facility] Infectious Dis [address] [place] [phone] Referral ID Status Reason Start Date Expiration Date V isits Requested Visits Authorized [id number] Closed Assume Subset of Care 04/30/2016 04/30/2017 1 1 Reason for Visit * Auth/Cert Specialty Diagnoses / Procedures Referred By Humberto flor Referred To Contact Diagnoses Fever FEVER, S/P KIDNEY TRANSPLANT Referral ID Status Reason Start Date Expiration Date Visits Re quested Visits Authorized [id number] 1 1 Encounter Details Date Type Department Care Team (Late st Contact Info) Description 04/25/2016 4:32 PM EDT - 04/30/2016 5:23 PM EDT Hospital Encounter [address] [place] [address] Tal Eagle MD [facility] [place] [address] Que Amaro MD [facility] [place] [address] Bacteremia due to coagulase-negative Staphylococcus Discharge Disposition: [...] this year that resulted in sepsis requiring fpc antibiotic treatment. He completed his course of [...] mg Tab Commonly known as: BACTRIM;SEPTRA ? [address] [address] Fax: ? Member Information? PCP Information?? Name: ?? Ethel Akins? PCP: ALBANIA DENIS, DO?? :?? 1950? Address:?? [address] [place] [address]? PCP PH: [phone] PCP ?? Phone:? Referring Provider Information? Urgency of Referral?? Name:?? RAMEZ SERRANO? Phone:?? [phone]? Routine? Fax: NPI#? [id number]? Ordered and Electronically Signed by: ?? Ramez [...] results to: OPAT Program Infectious Disease Section [facility] [place], [place] [address] FAX: ?? Line care instructions per [facility] OPAT Program protocol. ?? After hours, please contact the Infectious Disease Physician concrete block mason at . ?? If this order was signed greater than 72 hours prior to [facility] discharge, please call to confirm the accuracy of this order. ? Referral Information?? Reference# [id number]?? Referral type: Consultation?? # Visits requested: 1?? [...] regarding this request for services, please contact [facility] at [phone] between the hours of 8:00am-5:00pm (Mon - Fri).? Updated Allergies/ADRs: No KnowNo Known Allergiesw-up Recommendations for Providers: Continue daily IV abx until 1 week after surgery. PCP: LANIE DENIS, DOheduled Appointments: Fut Future Appointments Date Time Provider Department Center 05/13/2016 10:00 AM LAB, THREE L Lab 3L [facility] 05/13/2016 11:00 AM Que Amaro MD Leb Trans 2M [facility] 06/03/2016 9:00 AM Tulio Marcelo MD Leb Gastro [facility] 09/15/2016 9:00 AM LAB, THREE L Lab 3L [facility] 09/15/2016 10:00 AM Tal Eagle MD Leb Trans 2M [facility] tpatient Services/Studies: OPAT: Order / Recommendation for Post Discharge IV Antibiotic Management Referral Priority: Routine Referral Type: Consultation Referral Reason: Assume Subset of Care Number of Visits Requested: 1 Instructions Given to Patient at Discharge:. An After Visit Summary was printed and given to the patient. Patient Instructions [facility] Department of Transplant Surgery Discharge Instructions CALL [...] will be mailed to you. Please call [phone] (clinic number for appointments) to confirm date and time of your appointment if you do not receive your apointment in 1 week. During the night or weekends call the [facility] table machine operator at [phone] and ask to speak to the surgery resident concrete block mason for general surgery. - You are scheduled for surgery on 05/20/2016. You will receive more information regarding this surgery at your follow up visit in 2 weeks. Please note: Your surgeon may not be Instructor Programmable Controllers, especially during the night or on weekends, so be ready to describe yourself and your surgery when you call. Future Appointments Date Time Provider Department Center 05/13/2016 10:00 AM LAB, THREE L Lab 3L [facility] 05/13/2016 11:00 AM Que Amaro MD Leb Trans 2M [facility] 06/03/2016 9:00 AM Tulio Marcelo MD Leb [facility] 09/15/2016 9:00 AM LAB, THREE L Lab 3L [facility] 09/15/2016 10:00 AM Tal Eagle MD Leb Trans [facility] General Instructions Office of Care Management/ Solvent Station Attendant(CM) Infusion Room Referral for Outpatient IV Antibiotic Therapy Dr. Haynes pefsherwin pt for continued home IV antibiotic therapy after discharge from the hospital. Patient requested referral to [facility] Infusion Room Confirmed availability of service with infusion room nurse. Documentation faxed to Infusion Room via [employer] Patient to report to [facility] on 05/01/16 at 2:00 PM. Diabetic Status: Patient is a diabetic. IV access: Type of line: PICC Date placed: 04/29/16 Signed: Marcio Haynes MD documented in this encounter Discharge Instructions * Discharge Instructions* Malina Phelan RN - 05/01/2016 12:15 PM EDT Office of Care Management/ Solvent Station Attendant(CM) Infusion Room Referral for Outpatient IV Antibiotic Therapy Dr. Haynes pefsherwin pt for continued home IV antibiotic therapy after discharge from the hospital. Patient requested referral to [facility] Infusion Room Confirmed availability of service with infusion room nurse. Documentation faxed to Infusion Room via [employer] Patient to report to [facility] on 05/01/16 at 2:00 PM. Diabetic Status: Patient is a diabetic. IV access: Type of line: PICC Date placed: 04/29/16 * Patient Instructions* Marcio Haynes MD - 04/29/2016 4:27 PM EDT [facility] Department of Transplant Surgery Discharge Instructions CALL [...] will be mailed to you. Please call [phone] (clinic number for appointments) to confirm date and time of your appointment if you do not receive your apointment in 1 week. During the night or weekends call the [facility] table machine operator at [phone] and ask to speak to the surgery resident concrete block mason for general surgery. - You are scheduled for surgery on 05/20/2016. You will receive more information regarding this surgery at your follow up visit in 2 weeks. Please note: Your surgeon may not be Instructor Programmable Controllers, especially during the night or on weekends, so be ready to describe yourself and your surgery when you call. Future Appointments Date Time Provider Department Center 05/13/2016 10:00 AM LAB[facility] 05/13/2016 11:00 AM Que Amaro MD Leb Trans 2M [facility] 06/03/2016 9:00 AM Tulio Marcelo MD Leb Gastro [facility] 09/15/2016 9:00 AM LAB, [facility] L [facility] 09/15/2016 10:00 AM Tal Eagle MD [...] PM EDT DEVORA Phelan, MSN, RN P: [phone] Service: Transplant Patient medically ready for discharge to home today. to drive home. Patient to receive outpatient antibiotics once per day at [facility] in [place], [place]. Patient has refused the services of a VNA. * Carmenza Shaw RN - 04/30/2016 5:23 PM EDT OPAT Program/Infectious Disease Infusion Room Referral for Outpatient IV Antibiotic Therapy Patient has been referred for outpatient IV ABX to: [facility] ([facility] [address] [place] [address] IV access: Type of line: PICC Date placed: 04/29/16 Carmenza Morgan. MARK Shaw, ACM-RN, pager [phone] * Brandee Akins RN - 04/30/2016 4:41 [...] 3:12 PM EDT Office of Care Management/ Solvent Station Attendant(CM) Infusion Room Referral for Outpatient IV Antibiotic Therapy Dr. Ivy broderick pt for continued home IV antibiotic therapy after discharge from the hospital. Patient requested referral to [facility] Infusion Room Confirmed availability of service with infusion room nurse. Documentation faxed to Infusion Room via [employer] Patient to report to [facility] on 05/01/16 at 2:00 PM Diabetic Status: [...] Franko Kim MD Infectious Disease Fellow Pager [phone] ?? I have seen the patient and [...] Joanne Mackey - 04/29/2016 7:38 PM EDT Pump Erector Helper Encounter Note Patient Name: Ethel Akins : [id number] MR#: [id number] Admit Date: 04/25/2016 4:32 PM Hospital Day [...] of : 1950 AGE 65 y.o. Address: [address] [place] [phone] (home) [phone] (work) Mobile: Telephone Information: Referring Provider: No [...] EXTREMITY performed by Que Amaro MD at [facility] OR ??? Pro transplantation of kidney N/A 09/16/2015 @KIDNEY TRANSPLANT, WITHOUT RECIPIENT NEPHRECTOMY performed by Franko Larkin MD at [facility] OR ??? Pro transplant, prep cadaver renal graft N/A 09/16/2015 @PREPARATION CADAVERIC RENAL ALLOGRAFT performed by Franko Larkin MD at [facility] OR ??? N/A 09/16/2015 ORGAN ACQUISITION RENAL, CADAVERIC performed by Franko Larkin MD at [facility] OR Date/Procedure? Med's given/comments 01/08/2015: [...] EXTREMITY performed by Que Amaro MD at [facility] OR ??? Pro transplantation of kidney N/A 09/16/2015 @KIDNEY TRANSPLANT, WITHOUT RECIPIENT NEPHRECTOMY performed by Franko Larkin MD at [facility] OR ??? Pro transplant, prep cadaver renal graft N/A 09/16/2015 @PREPARATION CADAVERIC RENAL ALLOGRAFT performed by Franko Larkin MD at [facility] OR ??? N/A 09/16/2015 ORGAN ACQUISITION RENAL, CADAVERIC performed by Franko Larkin MD at [facility] OR Medications: No current facility-administered [...] Prone Consent: Pending Libia Lake MD Pager #[phone] * Que Amaro MD - 04/29/2016 8:19 [...] 250 BID Marcio Haynes MD Transplant Surgery 5060 I have seen the patient and reviewed [...] 04/28/2016 11:17 AM EDT Office of Care Management/Solvent Station Attendant(CM) Home IV Antibiotic Therapy Referral Note. Report received from Dr. Amaro that patient will require continued home IV antibiotic therapy after discharge from the hospital. Met with patient/family to discuss vendor and visiting nurse choices for home IV antibiotic therapy. Reviewed Home Infusion Vendors and Home Health Agencies that serve patient???s address and accept patient???s insurance. Home Health Agency: [facility] [employer]. ?? PHONE: [phone] ??FAX: [phone] Referrals sent via edischarge. Home Infusion Vendor: Patient requested referral to [facility]. Referrals sent via edischarge. Diabetic Status: Patient [...] Eagle MD - 04/25/2016 4:48 PM EDT [facility] Department of Transplant Surgery History and Physical [...] this year that resulted in sepsis requiring lobsterman antibiotic treatment. He completed his course of [...] EXTREMITY performed by Que Amaro MD at [facility] OR ??? Pro transplantation of kidney N/A 09/16/2015 @KIDNEY TRANSPLANT, WITHOUT RECIPIENT NEPHRECTOMY performed by Franko Larkin MD at [facility] OR ??? Pro transplant, prep cadaver renal graft N/A 09/16/2015 @PREPARATION CADAVERIC RENAL ALLOGRAFT performed by Franko Larkin MD at [facility] OR ??? N/A 09/16/2015 ORGAN ACQUISITION RENAL, CADAVERIC performed by Franko Larkin MD at [facility] OR Home Medications: No current [...] Negative mcL Appearance UA Clear Clear Spec Thompson UA 1.024 1.002 - 1.030 Color UA [...] patient was prepped and drapedin supine position. Ux Design Lead image obtained. Contrast injection confirmed catheter location. [...] to the planned procedure. Hand Hygiene: The carbon rod inserter did not perform hand hygiene prior to line insertion. Catheter type: PICC Lot number: [id number] Procedure Technique: Skin was prepped with chlorhexidine. [...] Discharge Planning Comments -- -- [facility] involved. [facility] to follow with home antibiotic [...] 04/30/16 0208 Health Knowledge, Opportunity to Enhance (Adult,NICU,[place],Obstetrics,Pediatric) Knowledgeable about Health Subject/Topic making progress toward [...] Discharge Planning Comments -- -- CRC involved. [facility] to follow with home antibiotic Activity/Self Care Review of Systems Equipment Currently Used at Home none -- -- Current Health Outpatient/Agency/Support Group Needs homecare agency (specify level of care) -- -- Anticipated Changes Related to Illness none -- -- Living Environment Transportation Available family or friend will provide -- -- Problem: Health Knowledge, Opportunity for Enhanced (Adult, NICU, [place], Obstetrics, Pediatric) Goal: Knowledgeable about Health Subject/Topic Patient will demonstrate the desired outcomes. 04/30/16207 Health Knowledge, Opportunity to Enhance (Adult,NICU,[place]erton,Obstetrics,Pediatric) Knowledgeable about Health Subject/Topic making progress toward [...] 04/28/16 1308 Health Knowledge, Opportunity to Enhance (Adult,NICU,[place]erton,Obstetrics,Pediatric) Knowledgeable about Health Subject/Topic making progress toward [...] EXTREMITY performed by Que Amaro MD at [facility] MA[facility] OR ??? Pro transplantation of kidney N/A 09/16/2015 @KIDNEY TRANSPLANT, WITHOUT RECIPIENT NEPHRECTOMY performed by Franko Larkin MD at [facility] MA[facility] OR ??? Pro transplant, prep cadaver renal graft N/A 09/16/2015 @PREPARATION CADAVERIC RENAL ALLOGRAFT performed by Franko Larkin MD at [facility] MA[facility] OR ??? N/A 09/16/2015 ORGAN ACQUISITION RENAL, CADAVERIC performed by Franko Larkin MD at [facility] OR Social History: Social History [...] to Admission: Independent Home Environment: Lives in [place], [place] with his Mara. Social & Family Supports/Community Resources: Patient has good support system with and family. Behavioral Health History: None on file Substance Use/Abuse: None on file Other Pertinent/Service Specific Information: None Health/Prescription Coverage: Primary Insurance: Medicare A&B Secondary Insurance: BC/BS Prescription Coverage: Yes [facility] in [place], [place] Other: None Primary Care Provider: Dr. Albania Denis [phone] Patient/Caregiver Goals of Treatment: To return home [...] of care planning. Malina Phelan RN Pager: [phone] * Plan of Care - Polina Delgado [...] PLAN MOVING FORWARD: Potential PICC placement for fpc abx at home - return at later [...] Health Knowledge, Opportunity for Enhanced (Adult, NICU, [place], Obstetrics, Pediatric) Goal: Knowledgeable about Health Subject/Topic Patient will demonstrate the desired outcomes. Outcome: Ongoing (Interventions Implemented as Appropriate) 04/27/16 1311 Health Knowledge, Opportunity to Enhance (Adult,NICU,[place]erton,Obstetrics,Pediatric) Knowledgeable about Health Subject/Topic making progress toward [...] Goal: Individualization and Mutuality 04/25/16 1819 04/26/16 0038 Individualization Patient Specific Preferences -- call me [...] EXTREMITY performed by Que Amaro MD at [facility] OR ??? Pro transplantation of kidney N/A 09/16/2015 @KIDNEY TRANSPLANT, WITHOUT RECIPIENT NEPHRECTOMY performed by Franko Larkin MD at [facility] OR ??? Pro transplant, prep cadaver renal graft N/A 09/16/2015 @PREPARATION CADAVERIC RENAL ALLOGRAFT performed by Franko Larkin MD at [facility] OR ??? N/A 09/16/2015 ORGAN ACQUISITION RENAL, CADAVERIC performed by Franko Larkin MD at [facility] OR Prior To Admission Medications: [...] Do not hesitate to page us at [phone] with any further questions or concerns. Franko Kim MD Infectious Disease Fellow Pager [phone] Attending Addendum: I have seen and examined [...] * Consult Note - Eleanor Bird, [facility] - 04/27/2016 7:10 AM EDT Clinical Pharmacist Note-Maci Ethel Akins [id number] Ethel Akins is a 65 y.o. [...] have. Alternately, during off-hours you may call [phone] to contact a pharmacist. ELEANOR BIRD [facility] Ext [phone] * Downtime Event Note - Nathen Horton [...] Health Knowledge, Opportunity for Enhanced (Adult, NICU, [place], Obstetrics, Pediatric) Goal: Identify Signs and Symptoms [...] Needs Assessment 04/25/16 1819 04/25/16 1900 04/26/16 1041 Discharge Needs Assessment Concerns to be Addressed [...] Health Knowledge, Opportunity for Enhanced (Adult, NICU, [place], Obstetrics, Pediatric) Goal: Knowledgeable about Health Subject/Topic Patient will demonstrate the desired outcomes. Peripherally Inserted Central Catheter (PICC) Teaching Sheet Peripherally inserted central catheters ([id number]) (PICC) are used when you need IV [...] midline catheter? PICC lines are used for lobsterman treatments. PICC lines may be used for [...] can be set up via the nurse Solvent Station Attendant to help you. What are possible complications [...] Efficacy, Safety, Use, and Administration of [employer] 2006 * Plan of Care - [...] * Consult Note - Ewelina Solorzano [facility] - 04/25/2016 5:56 PM EDT Dosing recommendations: [...] have. Alternately, during off-hours you may call [phone] to contact a pharmacist. documented in this encounter Plan of Treatment Upcoming Encounters Date Type Department Care Team (Late st Contact Info) Description 04/08/2024 1:40 PM EDT Office Visit Cardiology at [address] [phone] Jay Urban MD [facility] [place] [address] 04/15/2024 10:00 AM EDT Hospital Encounter [place] [phone] Arrived Scheduled Referrals Name Type Priority Associated Diagnoses Orde r Schedule OPAT: Order / Recommendation for Post Discharge IV Antibiotic Management Outpatient Referral Routine Bacteremia due to coagulase-negative Staphylococcus Ordered: 04/30/2016 documented as of this encounter Procedures Procedure Name Priority Date/Time Associated Diagnosis Comments CARDIAC ENZYMES ([facility]) STAT 04/30/2016 2:00 PM EDT IR ALL [...] 2:00 PM EDT) Troponin-T <0.03 <=0.03 ng/mL [facility] Comment: 0.03 ng/mL: Represents the 99th percentile upper reference limit for normals. >0.03 ng/mL: Elevated cardiac troponin T level indicative of myocardial damage. Diagnosis of acute, evolving or recent MA requires a typical rise and gradual fall [...] consensus document of the Joint Society of Cardiology/[place] College of Cardiology Committee for the redefinition of myocardial infarction. ??Journal of the [place] College of Cardiology 2000; 36: 959-969] Creatine Kinase 36 0 - 200 unit/L [facility] Blood specimen (specimen) 04/30/2016 2:00 PM EDT 04/30/2016 2:25 PM EDT Narrative Resulting Agency Comment Spec In Lab Que Amaro MD CHEMISTRY ROCHELLE JENNINGS Performing Organization Address City/State/[facility] Co de Phone Number [facility] [place] [address] * IR all procedures (04/30/2016 11:22 AM [...] was prepped and draped in supine position. Ux Design Lead image obtained. Contrast injection confirmed catheter location. [...] drainage. Fellow: Jaylin Moreira DO Attending: Dr. Ellsworth I was present throughout this procedure. Que Amaro MD IMG IR ORDERAB LES * BK Quant Blood Result (04/30/2016 5:12 AM EDT) BKV Blood Result Not Detected [facility] BKV Blood Interp BK Virus Plasma Result Interpretation Result: BK Virus not detected Specimen type: plasma Assay Range: 2.83-8.83 log copies/mL (6.8x10^2 - 6.8x10^8 copies/mL) Methods: Quantitative real-time polymerase chain reaction (PCR) of viral DNA isolated from plasma was performed using [employer]) BKV analyte-specific reagents and the [employer] 7500 FAST Real-Time PCR System. In addition, [...] Genomics and Advanced Technology (CGAT) Laboratory at [facility]. It has not been cleared or approved by the FDA. The laboratory is regulated under CLIA as qualified to perform high-complexity testing. This test is used for clinical purposes. It should not be regarded as investigational or for research. [facility] Comment: [VERIFIED DATE]05.21.16 Verified By:Xiomy Gupta (Electronic Signature) Blood specimen (specimen) 04/30/2016 5:12 AM EDT 04/30/2016 10:00 AM EDT Narrative Resulting Agency Comment Spec In Lab Que Amaro MD HEMATOLOGY STEVE LINARES Performing Organization Address City/State/[facility] Co de Phone Number [facility] [place] [address] * Phosphorus (04/30/2016 5:12 AM EDT) Phosphorus 2.5 2.5 - 4.5 mg/dL [facility] Blood specimen (specimen) 04/30/2016 5:12 AM EDT 04/30/2016 5:21 AM EDT Narrative Resulting Agency Comment Spec In Lab Que Amaro MD CHEMISTRY ROCHELLE JENNINGS Performing Organization Address City/[facility]/ZIP Co de Phone Number [facility] [place] [address] * (ABNORMAL) Magnesium (04/30/2016 5:12 AM EDT) [facility] Magnesium 0.59(L) 0.69 - 1.07 mmol/L [facility] Blood specimen (specimen) 04/30/2016 5:12 AM EDT 04/30/2016 5:21 AM EDT Narrative Resulting Agency Comment Spec In Lab Que Amaro MD CHEMISTRY ROCHELLE JENNINGS Performing Organization Address [facility] Co de Phone Number [facility] [place] [address] * Basic Metabolic Panel (non-fasting) (04/30/2016 5:12 AM EDT) [facility] Glucose 163 65 - 199 mg/dL [facility] Comment:Diabetes: >=200 mg/d L plus symptoms Blood Urea Nitrogen 15 10 - 20 mg/dL [facility] Creatinine 1.10 0.80 - 1.50 mg/dL [facility] Comment: Please note that the pediatric reference intervals supplied above were not validated at [facility]. Results from pediatric patients should be interpreted in conjunction to the patient's age, height and muscle mass. Sodium 140 135 - 145 mmol/L [facility] Potassium 3.5 3.5 - 5.0 mmol/L [facility] Comment: Please note: ??Patients with WBC >100,000 may have falsely elevated Potassium levels. ??For accurate Potassium quantification in these patients send serum separator tube (gold top) for subsequent determinations. ??Contact the Clinical Chemistry Laboratory if there are any questions. Chloride 102 98 - 107 mmol/L [facility] Carbon Dioxide 25 22 - 31 mmol/L [facility] Anion Gap 13 5 - 15 mmol/L [facility] Calcium 8.9 8.5 - 10.5 mg/dL [facility] Est Glomerular Filtration Rate >60 >=60 [facility] Comment: This [...] the following links into your internet browser. [email or web address] Blood specimen (specimen) 04/30/2016 5:12 AM EDT 04/30/2016 5:21 AM EDT Narrative Resulting Agency Comment Spec In Lab Que Amaro MD CHEMISTRY ORDE DICK Performing Organization Address [facility] Co de Phone Number [facility] [place] [address] * Vancomycin, trough (04/29/2016 6:07 PM EDT) Vancomycin, Trough 13.2 mg/L [facility] Comment: Therapeutic range for complicated [...] ORDERAB LES Performing Organization Address [facility] [facility] Co de Phone Number [facility] [place] [address] * Place PICC Line: Contact Vascular Access Page [id number] Extremity to exclude: DO NOT use LEFT Arm; Is PICC procedure required PRIOR to patients discharge? Yes (04/29/2016 11:51 AM EDT) Narrative Carmelina Roca RN - 04/29/2016 11:51 AM EDT Carmelina Roca [...] to the planned procedure. Hand Hygiene: The carbon rod inserter did not perform hand hygiene prior to line insertion. Catheter type: PICC Lot number: [id number] Procedure Technique: Skin was prepped with chlorhexidine. [...] ROCA RN 04/29/2016 Que Amaro MD PROCEDURE/SAE Sheth SURGICAL ORDERABLES * XR PICC Placement Over [...] mg/dL [facility] Blood specimen (specimen) 04/29/2016 3:40 AM EDT 04/29/2016 3:54 AM EDT Narrative Resulting Agency Comment Spec In Lab Que Amaro MD [facility] [place] [address] * (ABNORMAL) Magnesium (04/29/2016 3:40 AM EDT) [facility] Magnesium 0.64(L) 0.69 - 1.07 mmol/L [facility] Blood specimen (specimen) 04/29/2016 3:40 AM EDT 04/29/2016 3:54 AM EDT Narrative Resulting Agency Comment Spec In Lab Que Amaro MD CHEMISTRY ORDBhargav JENNINGS [facility] [place] [address] * Basic Metabolic Panel (non-fasting) (04/29/2016 3:40 AM EDT) [facility] Glucose 168 65 - 199 mg/dL [facility] Comment:Diabetes: >=200 mg/d L plus symptoms Blood Urea Nitrogen 12 10 - 20 mg/dL [facility] Creatinine 1.13 0.80 - 1.50 mg/dL [facility] Comment: Please note that the pediatric reference intervals supplied above were not validated at [facility]. Results from pediatric [...] questions. Chloride 103 98 - 107 mmol/L [facility] Carbon Dioxide 25 22 - 31 mmol/L [facility] Anion Gap 14 5 - 15 mmol/L [facility] Calcium 9.1 8.5 - 10.5 mg/dL [facility] Est Glomerular Filtration Rate >60 >=60 [facility] Comment: This [...] the following links into your internet browser. [email or web address] Blood specimen (specimen) 04/29/2016 3:40 AM EDT 04/29/2016 3:54 AM EDT Narrative Resulting Agency Comment Spec In Lab Que Amaro MD CHEMISTRY ROCHELLE JENNINGS Performing Organization Address [facility] Co de Phone Number [facility] [place] [address] * Urine culture Nephrostomy Urine (04/28/2016 1:44 PM EDT) Urine Culture No growth (Less than 100 cfu/ml). [facility] Urine specimen from nephrostomy tube (specimen) 04/28/2016 1:44 PM EDT 04/28/2016 3:44 PM EDT Narrative Resulting Agency Comment Spec In Lab Que Amaro MD MICROBIOLOGY - GENERAL ORDERABLES Performing Organization Address [facility] Co de Phone Number [facility] [place] [address] * Blood culture (04/28/2016 7:59 AM EDT) Blood Culture No growth at 5 days. [facility] Blood specimen (specimen) 04/28/2016 7:59 AM EDT 04/28/2016 8:20 AM EDT Comment:R AC Narrative Resulting Agency Comment Spec In Lab Tal Eagle MD MICROBIOLOGY - BL OOD ORDERABLES Performing Organization Address [facility]/ZIP Co de Phone Number [facility] [place] [address] * Tacrolimus level (04/28/2016 7:59 AM EDT) Tacrolimus 7.1 ng/mL [facility] Comment: Trough therapeutic: ??5-15 ng/mL Performed by ultra-performance liquid chromatography tandem mass spectrometry (UPLCMS/MS). Blood specimen (specimen) 04/28/2016 7:59 AM EDT 04/28/2016 11:12 AM EDT Narrative Resulting Agency Comment Spec In Lab Tal Eagle MD CHEMISTRY ORDERAB LES Performing Organization Address [facility] Co de Phone Number [facility] [place] [address] * Differential, Automated (04/28/2016 6:06 AM EDT) Pathologist [facility] Neutrophil % 66.0 % [facility] Neutrophil Absolute 4.48 1.70 - 6.10 x10(3)/[facility] LAB[facility]AT[facility] Lymph % 22.5 % [facility] Lymphocytes Abs 1.5 0.9 - 3.2 x10(3)/[facility] Monocyte % 7.9 % [facility] Monocyte Abs 0.5 0.3 - 0.9 x10(3)/[facility] LAB[facility] Eos % 2.6 % [facility] Eosinophils Abs 0.2 0.0 - 0.4 x10(3)/[facility] LABOR[facility] Basophil % 0.7 % [facility] Baso Absolute 0.0 0.0 - 0.1 x10(3)/[facility] LABORATORY Immature Gran % 0.30 % [facility] Comment: Immature granulocytes(IG's)percentage and absolute count will include metamyelocytes, myelocytes, and promyelocytes. Blood smears from CBCs yielding IG's will be scanned manually for concordance. If this scan disagrees with the automated IG or if promyelocytes are noted, a manual differential will be performed. Immature Gran Absolute 0.02 0.00 - 0.04 x10(3)/[facility] LABORATORY Blood specimen (specimen) 04/28/2016 6:06 AM EDT 04/28/2016 6:18 AM EDT Narrative Resulting Agency Comment Spec In Lab Tal Eagle MD HEMATOLOGY ORDERA BLES [facility] [place] [address] * (ABNORMAL) Hemogram (04/28/2016 6:06 AM EDT) White Blood Cell 6.8 4.0 - 9.5 x10(3)/[facility] LABORATORY Red Blood Cell 4.66 4.58 - 5.54 x10(6)/[facility] LABORATORY Hemoglobin 15.0 13.7 - 16.5 gm/dL [facility] Hematocrit 43.5 40.5 - 48.5 % [facility] Mean Cell Volume 93.3(H) 82.9 - 93.1 fL [facility] Mean Cell Hemoglobin 32.2(H) 27.5 - 32.1 pg [facility] Mean Cell Hemoglobin Concentration 34.5 32.0 - 35.7 gm/dL [facility] Platelet 162 145 - 357 x10(3)/[facility] LABORATORY RDW Standard Deviation 43.8 36.0 - 45.0 [facility] LABORATORY RDW coefficient of variation 12.7 11.4 - 13.8 % [facility] Mean Platelet Volume 9.7 7.6 - 12.9 [facility] LABORATORY NRBC% auto 0.0 % [facility] NRBC Absolute 0.000 0.000 - 0.000 x10(3)/[facility] LABORATORY Blood specimen (specimen) 04/28/2016 6:06 AM EDT 04/28/2016 6:18 AM EDT Narrative Resulting Agency Comment Spec In Lab Tal Eagle MD HEMATOLOGY ORDERA BLES Performing Organization Address [facility] de Phone Number [facility] [place] [address] * Blood culture (04/28/2016 6:06 AM EDT) Blood Culture No growth at 5 days. [facility] Blood specimen (specimen) 04/28/2016 6:06 AM EDT 04/28/2016 7:42 AM EDT Comment:R WRIST Narrative Resulting Agency Comment Spec In Lab Que Amaro MD MICROBIOLOGY - BLOOD ORDERABLES Performing Organization Address [facility] Phone Number [facility] [place] [address] * Phosphorus (04/28/2016 6:06 AM EDT) Phosphorus 2.5 2.5 - 4.5 mg/dL [facility] Blood specimen (specimen) 04/28/2016 6:06 AM EDT 04/28/2016 6:22 AM EDT Narrative Resulting Agency Comment Spec In Lab Tal Eagle MD CHEMISTRY ORDERAB LES Performing Organization Address [facility] de Phone Number [facility] [place] [address] * (ABNORMAL) Magnesium (04/28/2016 6:06 AM EDT) Magnesium 0.67(L) 0.69 - 1.07 mmol/L [facility] Blood specimen (specimen) 04/28/2016 6:06 AM EDT 04/28/2016 6:22 AM EDT Narrative Resulting Agency Comment Spec In Lab Tal Eagle MD CHEMISTRY ORDERAB LES Performing Organization Address [facility] Co de Phone Number [facility] [place] [address] * (ABNORMAL) BMP w/fasting Glucose (04/28/2016 6:06 AM EDT) [facility] Signature Glucose Fasting 150(H) 65 - 99 mg/dL [facility] [...] of Diabetes Mellitus, Position Statement from the [place] [employer]. ??Diabetes Care, Volume 33, Supplement 1, Jul 2009 Blood Urea Nitrogen 10 10 - 20 mg/dL [facility] Creatinine 1.10 0.80 - 1.50 mg/dL [facility] Comment: Please note that the pediatric reference intervals supplied above were not validated at [facility]. Results from pediatric patients should be interpreted in conjunction to the patient's age, height and muscle mass. Sodium 142 135 - 145 mmol/L [facility] Potassium 3.5 3.5 - 5.0 mmol/L [facility] [...] - 15 mmol/L [facility] Calcium 9.1 8.5 - 10.5 mg/dL [facility] Est Glomerular Filtration Rate >60 >=60 [facility] Comment: This [...] the following links into your internet browser. [email or web address] Blood specimen (specimen) 04/28/2016 6:06 AM EDT 04/28/2016 6:22 AM EDT Narrative Resulting Agency Comment Spec In Lab Tal Eagle MD CHEMISTRY ORDERAB LES [facility] [place] [address] * BK Quant Urine Result (04/27/2016 4:26 PM EDT) BKV Urine Result Positive [facility] BKV Urine Interp BK Virus [...] DNA isolated from urine was performed using [employer] BKV (ASR) reagents and the Applied Biosystems 7500 FAST Real-Time PCR System. In addition, the PCR product sequence is confirmed using physical properties (melting curve analysis). This test was developed and its performance determined by the [facility] Molecular Pathology Laboratory. It [...] clinical testing. [facility] Comment: [VERIFIED DATE]05.01.16 Verified By:Jimmy Gleason (Electronic Signature) Urine specimen (specimen) 04/27/2016 4:26 PM EDT 04/28/2016 10:43 AM EDT Narrative Resulting Agency Comment Spec In Lab Que Amaro MD HEMATOLOGY ORD ERABLES Performing Organization Address [facility]/ZIP Co de Phone Number [facility] [place] [address] * Blood culture (04/27/2016 11:32 AM EDT) Blood Culture No growth at 5 days. [facility] Blood specimen (specimen) STRUCTURE OF RIGHT HAND / Unknown 04/27/2016 11:32 AM EDT 04/27/2016 12:17 PM EDT Narrative Resulting Agency Comment Spec In Lab Que Amaro MD MICROBIOLOGY - BLOOD ORDERABLES Performing Organization Address [facility] Co de Phone Number [facility] [place] [address] * (ABNORMAL) Urinalysis with reflex Culture (04/27/2016 [...] mg/dL [facility] pH, Urn (dipstick) 7.0 5.0 - 8.0 [facility] Blood, Urine Dipstick Moderate(A) Negative mg/dL [facility] Ketone, Urine Dipstick Negative Negative mg/dL [facility] Nitrite, Urine Dipstick Negative Negative [facility] Leukocytes, Urine Dipstick Negative Negative [facility] Appearance, Urine Dipstick Clear Clear [facility] Specific Thompson Urine Automated 1.008 1.002 - 1.030 [facility] Color, Urine Dipstick Straw Yellow [facility] RBC, Urine 68(H) 0 - 3 /HPF [facility] WBC, Urine 4(H) 0 - 3 /HPF [facility] Bacteria, Urine Rare(A) None /HPF [facility] Reflex to Culture No [facility] Urine specimen from nephrostomy tube (specimen) 04/27/2016 11:15 AM EDT 04/27/2016 12:07 PM EDT Narrative Resulting Agency Comment Spec In Lab Que Amaro MD URINE ORDERABL ES Performing Organization Address [facility]/ZIP Co de Phone Number [facility] [place] [address] * Scan, Peripheral Blood (04/27/2016 5:36 AM EDT) Plat estimate Normal [facility] RBC Morphology Normal [facility] Blood specimen (specimen) 04/27/2016 5:36 AM EDT 04/27/2016 5:52 AM EDT Narrative Resulting Agency Comment Spec In Lab Tal Eagle MD HEMATOLOGY ORDERA BLES Performing Organization Address [facility]/ZIP Co de Phone Number [facility] [place] [address] * Vancomycin, trough (04/27/2016 5:36 AM EDT) Vancomycin, Trough 9.1 mg/L [facility] Comment: Therapeutic range for complicated [...] MD CHEMISTRY ORDERAB LES [facility] [place] [address] * Differential, Automated (04/27/2016 5:36 AM EDT) Neutrophil % 73.6 % [facility] Neutrophil Absolute 5.11 1.70 - 6.10 x10(3)/[facility] LABORATORY Lymph % 15.0 % [facility] Lymphocytes Abs 1.0 0.9 - 3.2 x10(3)/[facility] LABORATORY Monocyte % 9.7 % [facility] Monocyte Abs 0.7 0.3 - 0.9 x10(3)/[facility] LABORATORY Eos % 0.7 % [facility] Eosinophils Abs 0.0 0.0 - 0.4 x10(3)/[facility] LABORATORY Basophil % 0.6 % [facility] Baso Absolute 0.0 0.0 - 0.1 x10(3)/[facility] LABORATORY Immature Gran % 0.40 % [facility] Comment: Immature granulocytes(IG's)percentage and absolute count will include metamyelocytes, myelocytes, and promyelocytes. Blood smears from CBCs yielding IG's will be scanned manually for concordance. If this scan disagrees with the automated IG or if promyelocytes are noted, a manual differential will be performed. Immature Gran Absolute 0.03 0.00 - 0.04 x10(3)/[facility] LAB[facility]ATORY Blood specimen (specimen) 04/27/2016 5:36 AM EDT 04/27/2016 5:52 AM EDT Narrative Resulting Agency Comment Spec In Lab Tal Eagle MD HEMATOLOGY ORDERA BLES [facility] [place] [address] * (ABNORMAL) Hemogram (04/27/2016 5:36 AM EDT) White Blood Cell 6.9 4.0 - 9.5 x10(3)/mc L [facility] Red Blood Cell 4.57(L) 4.58 - 5.54 x10(6)/mc L [facility] Hemoglobin 14.7 13.7 - 16.5 gm/dL [facility] Hematocrit 42.6 40.5 - 48.5 % [facility] Mean Cell Volume 93.2(H) 82.9 - 93.1 fL [facility] Mean Cell Hemoglobin 32.2(H) 27.5 - 32.1 pg [facility] Mean Cell Hemoglobin Concentration 34.5 32.0 - 35.7 gm/dL [facility] Platelet 146 145 - 357 x10(3)/mc L [facility] RDW Standard Deviation 43.7 36.0 - 45.0 [facility] LABORATORY RDW coefficient of variation 12.8 11.4 - 13.8 % [facility] Mean Platelet Volume 9.1 7.6 - 12.9 fL [facility] NRBC% auto 0.0 % [facility] NRBC Absolute 0.000 0.000 - 0.000 x10(3)/mc L [facility] Blood specimen (specimen) 04/27/2016 5:36 AM EDT 04/27/2016 5:52 AM EDT Narrative Resulting Agency Comment Spec In Lab Tal Eagle MD HEMATOLOGY ORDERA BLES Performing Organization Address [facility] de Phone Number [facility] [place] [address] * (ABNORMAL) Phosphorus (04/27/2016 5:36 AM EDT) Phosphorus 1.7(L) 2.5 - 4.5 mg/dL [facility] Blood specimen (specimen) 04/27/2016 5:36 AM EDT 04/27/2016 5:52 AM EDT Narrative Resulting Agency Comment Spec In Lab Tal Eagle MD CHEMISTRY ORDERAB LES Performing Organization Address [facility] de Phone Number [facility] [place] [address] * (ABNORMAL) Magnesium (04/27/2016 5:36 AM EDT) Magnesium 0.56(L) 0.69 - 1.07 mmol/L [facility] Blood specimen (specimen) 04/27/2016 5:36 AM EDT 04/27/2016 5:52 AM EDT Narrative Resulting Agency Comment Spec In Lab Tal Eagle MD CHEMISTRY ORDERAB LES Performing Organization Address [facility] de Phone Number [facility] [place] [address] * (ABNORMAL) BMP w/fasting Glucose (04/27/2016 5:36 AM EDT) Glucose Fasting 183(H) 65 - 99 mg/dL [facility] [...] of Diabetes Mellitus, Position Statement from the [place] [employer]. ??Diabetes Care, Volume 33, Supplement 1, Jul 2009 Blood Urea Nitrogen 13 10 - 20 mg/dL [facility] Creatinine 1.38 0.80 - 1.50 mg/dL [facility] Comment: Please note that the pediatric reference intervals supplied above were not validated at [facility]. Results from pediatric patients should be interpreted in conjunction to the patient's age, height and muscle mass. Sodium 136 135 - 145 mmol/L [facility] Potassium 3.3(L) 3.5 - 5.0 mmol/L [facility] Comment: Please note: ??Patients with WBC >100,000 may have falsely elevated Potassium levels. ??For accurate Potassium quantification in these patients send serum separator tube (gold top) for subsequent determinations. ??Contact the Clinical Chemistry Laboratory if there are any questions. Chloride 100 98 - 107 mmol/L [facility] Carbon Dioxide 22 22 - 31 mmol/L [facility] Anion Gap 14 5 - 15 mmol/L [facility] Calcium 8.3(L) 8.5 - 10.5 mg/dL [facility] Comment:result rechecked-kb Est Glomerular Filtration Rate 51(L) >=60 [facility] Comment: This [...] the following links into your internet browser. [email or web address] Blood specimen (specimen) 04/27/2016 5:36 AM EDT 04/27/2016 5:52 AM EDT Narrative Resulting Agency Comment Spec In Lab Tal Eagle MD CHEMISTRY ORDERAB LES Performing Organization Address [facility] de Phone Number [facility] [place] [address] * Blood culture (04/26/2016 4:41 PM EDT) Blood Culture No growth at 5 days. [facility] Blood specimen (specimen) 04/26/2016 4:41 PM EDT 04/26/2016 5:04 PM EDT Comment:#2 R A.BRDRAW WHE N DRAWING BMP THIS AFTERNOON Narrative Resulting Agency Comment Spec In Lab Tal Eagle MD MICROBIOLOGY - BL OOD ORDERABLES Performing Organization Address [facility] de Phone Number [facility] [place] [address] * Blood culture (04/26/2016 4:41 PM EDT) Blood Culture No growth at 5 days. [facility] Blood specimen (specimen) 04/26/2016 4:41 PM EDT 04/26/2016 5:03 PM EDT Comment:#1 R ACHEYENNEBRDRAW WHE N DRAWING BMP THIS AFTERNOON Narrative Resulting Agency Comment Spec In Lab Tal Eagle MD MICROBIOLOGY - BL OOD ORDERABLES Performing Organization Address [facility] de Phone Number [facility] [place] [address] * (ABNORMAL) BMP w/fasting Glucose (04/26/2016 4:41 PM EDT) Glucose Fasting 121(H) 65 - 99 mg/dL [facility] [...] of Diabetes Mellitus, Position Statement from the [place] [employer]. ??Diabetes Care, Volume 33, Supplement 1, Jul 2009 Blood Urea Nitrogen 15 10 - 20 mg/dL [facility] Creatinine 1.51(H) 0.80 - 1.50 mg/dL [facility] Comment: Please note that the pediatric reference intervals supplied above were not validated at [facility]. Results from pediatric patients should be interpreted in conjunction to the patient's age, height and muscle mass. Sodium 138 135 - 145 mmol/L [facility] Potassium 3.6 3.5 - 5.0 mmol/L [facility] Comment: Please note: ??Patients with WBC >100,000 may have falsely elevated Potassium levels. ??For accurate Potassium quantification in these patients send serum separator tube (gold top) for subsequent determinations. ??Contact the Clinical Chemistry Laboratory if there are any questions. Chloride 97(L) 98 - 107 mmol/L [facility] Carbon Dioxide 26 22 - 31 mmol/L [facility] Anion Gap 15 5 - 15 mmol/L [facility] Calcium 9.0 8.5 - 10.5 mg/dL [facility] Est Glomerular Filtration Rate 46(L) >=60 [facility] Comment: This [...] the following links into your internet browser. [email or web address] Blood specimen (specimen) 04/26/2016 4:41 PM EDT 04/26/2016 4:46 PM EDT Narrative Resulting Agency Comment Spec In Lab Tal Eagle MD CHEMISTRY ORDERAB LES [facility] [place] [address] * Differential, Automated (04/26/2016 6:21 AM EDT) Neutrophil % 81.3 % [facility] Neutrophil Absolute 5.60 1.70 - 6.10 x10(3)/[facility] LABORATORY Lymph % 12.8 % [facility] Lymphocytes Abs 0.9 0.9 - 3.2 x10(3)/[facility] LAB[facility]ORY Monocyte % 5.2 % [facility] Monocyte Abs 0.4 0.3 - 0.9 x10(3)/[facility] LAB[facility] Eos % 0.0 % [facility] Eosinophils Abs 0.0 0.0 - 0.4 x10(3)/[facility] LABOR[facility]ORY Basophil % 0.4 % [facility] Baso Absolute 0.0 0.0 - 0.1 x10(3)/[facility] LABORATORY Immature Gran % 0.30 % [facility] Comment: Immature granulocytes(IG's)percentage and absolute count will include metamyelocytes, myelocytes, and promyelocytes. Blood smears from CBCs yielding IG's will be scanned manually for concordance. If this scan disagrees with the automated IG or if promyelocytes are noted, a manual differential will be performed. Immature Gran Absolute 0.02 0.00 - 0.04 x10(3)/[facility] LAB[facility]ATORY Blood specimen (specimen) 04/26/2016 6:21 AM EDT 04/26/2016 6:32 AM EDT Narrative Resulting Agency Comment Spec In Lab Tal Eagle MD HEMATOLOGY ORDERA BLES [facility] [place] [address] * (ABNORMAL) Hemogram (04/26/2016 6:21 AM EDT) White Blood Cell 6.9 4.0 - 9.5 x10(3)/mc L [facility] Red Blood Cell 4.82 4.58 - 5.54 x10(6)/ L [facility] Hemoglobin 15.5 13.7 - 16.5 gm/dL [facility] Hematocrit 43.8 40.5 - 48.5 % [facility] Mean Cell Volume 90.9 82.9 - 93.1 fL [facility] Mean Cell Hemoglobin 32.2(H) 27.5 - 32.1 pg [facility] Mean Cell Hemoglobin Concentration 35.4 32.0 - 35.7 gm/dL [facility] Platelet 177 145 - 357 x10(3)/ L [facility] RDW Standard Deviation 41.2 36.0 - 45.0 [facility] LABORATORY RDW coefficient of variation 12.5 11.4 - 13.8 % [facility] Mean Platelet Volume 9.2 7.6 - 12.9 [facility] LAB[facility]ORY NRBC% auto 0.0 % [facility] NRBC Absolute 0.000 0.000 - 0.000 x10(3)/ L [facility] Blood specimen (specimen) 04/26/2016 6:21 AM EDT 04/26/2016 6:32 AM EDT Narrative Resulting Agency Comment Spec In Lab Tal Eagle MD HEMATOLOGY ORDERA BLES [facility] [place] [address] * (ABNORMAL) Phosphorus (04/26/2016 6:21 AM EDT) Phosphorus 2.1(L) 2.5 - 4.5 mg/dL [facility] Blood specimen (specimen) 04/26/2016 6:21 AM EDT 04/26/2016 6:32 AM EDT Narrative Resulting Agency Comment Spec In Lab Tal Eagle MD CHEMISTRY ORDERAB LES Performing Organization Address [facility] Co de Phone Number [facility] [place] [address] * (ABNORMAL) Magnesium (04/26/2016 6:21 AM EDT) Magnesium 0.45(L) 0.69 - 1.07 mmol/L [facility] Blood specimen (specimen) 04/26/2016 6:21 AM EDT 04/26/2016 6:32 AM EDT Narrative Resulting Agency Comment Spec In Lab Tal Eagle MD CHEMISTRY ORDERAB LES Performing Organization Address [facility] Co de Phone Number [facility] [place] [address] * (ABNORMAL) BMP w/fasting Glucose (04/26/2016 6:21 AM EDT) Glucose Fasting 143(H) 65 - 99 mg/dL [facility] [...] of Diabetes Mellitus, Position Statement from the [place] [employer]. ??Diabetes Care, Volume 33, Supplement 1, Jul 2009 Blood Urea Nitrogen 13 10 - 20 mg/dL [facility] Creatinine 1.30 0.80 - 1.50 mg/dL [facility] Comment: Please note that the pediatric reference intervals supplied above were not validated at [facility]. Results from pediatric patients should be interpreted in conjunction to the patient's age, height and muscle mass. Sodium 136 135 - 145 mmol/L [facility] Potassium 3.3(L) 3.5 - 5.0 mmol/L [facility] Comment: Please note: ??Patients with WBC >100,000 may have falsely elevated Potassium levels. ??For accurate Potassium quantification in these patients send serum separator tube (gold top) for subsequent determinations. ??Contact the Clinical Chemistry Laboratory if there are any questions. Chloride 98 98 - 107 mmol/L [facility] Carbon Dioxide 23 22 - 31 mmol/L [facility] Anion Gap 15 5 - 15 mmol/L [facility] Calcium 8.2(L) 8.5 - 10.5 mg/dL [facility] Comment:result rechecked-llu Est Glomerular Filtration Rate 55(L) >=60 [facility] Comment: This [...] the following links into your internet browser. [email or web address] Blood specimen (specimen) 04/26/2016 6:21 AM EDT 04/26/2016 6:32 AM EDT Narrative Resulting Agency Comment Spec In Lab Tal Eagle MD CHEMISTRY ORDERAB LES [facility] [place] [address] * (ABNORMAL) Urine culture Nephrostomy Urine (04/25/2016 10:25 PM EDT) Urine Culture 1,000-9,000 cfu/ml Coagulase Negative Staph, not S. saprophyticus Susceptibility testing not routinely performed for Coagulase Negative Staphylococcus species and other Gram Positive organisms from urine. (A) [facility] Organism Coagulase Negative Staph, not S. saprophyticus(A) [facility] Urine specimen from nephrostomy tube (specimen) 04/25/2016 10:25 PM EDT 04/25/2016 11:03 PM EDT Comment:PLEASE OBTAIN FROM I NDWELLING NEPHROSTOMY TUBE Narrative Resulting Agency Comment Spec In Lab Tal Eagle MD [facility] [place] [address] * XR Chest PA & Lateral (Generic) [...] ONCE, 1 dose, On Thu04/30/16 at 1345, STAT, Indication for (Active or Suspected): Urinary Tract/Pyelonephritis, Restricted Antibiotic: Please indicate the most appropriate choice: ID Aprroval by Franko Kim Given 04/30/2016 1:45 PM EDT 775 mg [...] 1 g, Intravenous, ONCE, 1 dose, On Thu04/26/16 at 0900, Administer over 60 Minutes Given [...] 40 mEq, Oral, ONCE, 1 dose, On 04/28/16 at 0945, 20 mEq tablet may be dissolved in water for administration, Routine Given 04/28/2016 9:40 AM EDT 40 mEq potassium chloride (K-DUR/KLOR-CON) extended release tablet 40 mEq 40 mEq, Oral, ONCE, 1 dose, On 04/29/16 at 1330, 20 mEq tablet may be [...] 15 mmol, Intravenous, ONCE, 1 dose, On 04/26/16 at 1200, Administer over 4 Hours, Administer over 4-6 hours Given 04/26/2016 12:00 PM EDT 15 mmol 37.5 mL/hr sodium phosphate 15 mMol in sodium chloride 0.9% 150 mL 15 mmol, Intravenous, EVERY 4 HOURS, 3 doses, First dose (after last reorder) on 04/27/16 at 0900, Last dose on Thu04/27/16 at [...] on Thu04/25/16 at 1830, Last dose on 04/27/16 at 0600, Maximum infusion rate is 1 gram/hour. If flushing of the face, neck, upper body, arms, and/or back occurs decrease infusion rate by 50% to reduce the severity of symptoms. This medication may have an associated drug lab level. Please see MAR for scheduled level. Warning Vesicant/Irritant Medication , STAT, Indication for (Active or Suspected): Urinary Tract/Pyelonephritis Given 04/27/2016 6:25 AM EDT 1,000 mg [...] Indication for (Active or Suspected): Bacteremia/Sepsis Given 04/30/2016 6:11 AM EDT 1,250 mg 2 00 mL/hr Given 04/29/2016 6:30 PM EDT 1,250 [...] Polina Delgado RN)0940 (Given - Provider: Ethel Flores, JADEN)1802 (Given - Provider: Ethel Flores RN) 0200 (Not Given - Provider: Polina Delgado RN - Reason: Patient/family refused - Comment: Pt requested that I do not wake him up for tylenol)0929 (Given - Provider: Ryan Fuchs, JADEN)1802 (Given - Provider: Ryan Fuchs RN) 0812 (Given - Provider: Brandee Akins RN - Comment: pt requested not to be awakened for tylenol.)1000 (Not Given - Provider: Brandee Akins RN - Reason: Patient/family refused) calciTRIol (ROCALTROL) capsule 0.5 mcg 0.5 mcg, Oral, DAILY, First dose on 04/26/16 at 0900, Until Discontinued, Routine 0804 (Given - Provider: Bernarda Pedroza RN) 0804 (Given - Provider: Bernarda Pedroza RN) 0811 (Given - Provider: Brandee Akins, JADEN) calcium carbonate (TUMS) chewable tablet 500 [...] at 131 mL/hr, ONCE, 1 dose, On 04/30/16 at 1345, STAT, Indication for (Active or Suspected): Urinary Tract/Pyelonephritis, Restricted Antibiotic: Please indicate the most appropriate choice: ID Aprroval by Franko Kim 0642 (Given - Provider: Brandee Akins RN) DILTiazem (DILTIAZEM CD) ER capsule 120 mg 120 mg, Oral, DAILY, First dose on 04/26/16 at 0900, Until Discontinued, DO NOT CRUSH [...] Patient/family refused) 0600 (Not Given - Provider: Polian Delgado RN - Reason: Patient/family refused)1327 (Not [...] 60 Minutes 1101 (Given - Provider: Ethel Flores, JADEN) magnesium sulfate 2 g in sterile water 50 mL (COMPLETED) 2 g, Intravenous, ONCE, 1 dose, On Thu04/29/16 at 0900, Administer over 120 Minutes 0929 (Given - Provider: Ryan Fuchs RN) magnesium sulfate 2 g in sterile water 50 mL (COMPLETED) 2 g, Intravenous, ONCE, 1 dose, On Thu04/30/16 at 0730, Administer over 120 Minutes 0746 (Given - Provider: Brandee Akins, JADEN) mycophenolate (CELLCEPT) capsule 250 mg 250 mg, Oral, 2 TIMES DAILY, First dose on Thu04/25/16 at 2100, Until Discontinued, DO NOT CRUSH OR OPEN, Routine 0803 (Given - Provider: Bernarda Pedroza RN)2038 (Given - Provider: Polina Delgado RN) 08 (Given - Provider: Bernarda Pedroza RN)2100 (Given - Provider: Ethel Flores, JADEN) 08 (Given - Provider: Brandee Akins, JADEN) pantoprazole (PROTONIX) tablet 40 mg 40 mg, Oral, DAILY, First dose on Thu04/25/16 at 1800, Until Discontinued, DO NOT CRUSH OR OPEN, Routine 0803 (Given - Provider: Bernarda Pedroza RN) 08 (Given - Provider: Bernarda Pedroza RN) 0811 (Given - Provider: Brandee Akins, JADEN) potassium chloride (K-DUR/KLOR-CON) extended release tablet 40 mEq (COMPLETED) 40 mEq, Oral, ONCE, 1 dose, On Thu04/28/16 at 0945, 20 mEq tablet may be dissolved in water for administration, Routine 09 (Given - Provider: Ethel Flores RN) potassium [...] then stir and give to patient., Routine 08 (Given - Provider: Bernarda Pedroza RN)2038 (Given - Provider: Polina Delgado RN) 08 (Given - Provider: Bernarda Pedroza RN)2101 (Given - Provider: Ethel Flores RN) 0811 (Given - Provider: Brandee Akins RN) sodium chloride 0.9 % flush 5 mL 5 mL, Intravenous, 2 TIMES DAILY, First dose on Thu04/25/16 at 2100, Until Discontinued, Routine 08 (Given - Provider: Bernarda Pedroza RN)2099 (Given - Provider: Polina Delgado RN) 08 (Given - Provider: Bernarda Pedroza RN)2102 (Given - Provider: Ethel Flores, JADEN) 0812 (Given - Provider: Brandee Akins RN) tacrolimus (PROGRAF) capsule 1 mg 1 mg, Oral, 2 TIMES DAILY, First dose on Thu04/25/16 at 2100, Until Discontinued, Routine 0803 (Given - Provider: Bernarda Pedroza RN)2038 (Given - Provider: Polina Delgado RN) 08 (Given - Provider: Bernarda Pedroza RN)2101 (Given - Provider: Ethel Flores RN) 08 (Given - Provider: Brandee Akins, JADEN) tamsulosin (FLOMAX) ER capsule 0.4 mg 0.4 mg, Oral, NIGHTLY, First dose on Thu04/25/16 at 2100, Until Discontinued, DO NOT CRUSH OR OPEN, Routine 2038 (Given - Provider: Polina Delgado RN) 2101 (Given - Provider: Ethel Flores RN) valGANciclovir (VALCYTE) tablet 450 mg 450 mg, Oral, 2 TIMES DAILY, First dose on Thu04/25/16 at 2100, Until Discontinued, Routine, Indication for (Active or Suspected): Prophylaxis 802 (Given - Provider: Bernarda Pedroza RN)2038 (Given - Provider: Polina Delgado RN) 803 (Given - Provider: Bernarda Pedroza RN)2101 (Given - Provider: Ethel Flores RN) 810 (Given - Provider: Brandee Akins RN) vancomycin [...] Routine, Indication for (Active or Suspected): Bacteremia/Sepsis 0535 (Given - Provider: Polina Delgado RN)1804 [...] 1800 (Lab Order Released - Provider: Ryan Fuchs, JADEN) Continuous Medication Order 04/28/2016 04/29/2016 04/30/2016 sodium [...] Routine 1020 (Given - Provid er: Marisela Miller RN)1025 (Given - Provider: Marisela Miller RN)1100 (Given - Provider: Marisela Miller RN) iohexol (OMNIPAQUE) 350 mg/mL solution 5,250 mg [...] Miller, RN)1025 (Given - Provider: Marisela Miller, RN) ondansetron (ZOFRAN) injection 4 mg(Linked Group [...] Routine, Indication for (Active or Suspected): Bacteremia/Sepsis And Vancomycin Level - [facility] Order Reminder (CANCELED) NOT APPLICABLE, ONCE, On [...] first. documented in this encounter Care Teams Tower Loader Operator Relationship Specialty Start Date End Date [place] Denis DO [address] [place] [address] PCP - General 09/03/12 03/17/22 Hai STANLEY,Ruchi Nurse Clinic Transplant Surgery 07/30/15 documented as of this encounter
--- OUTSIDE RECORDS SUMMARY | 2024-04-04 14:10 | XMS_ITS | Encounter Summary ---
Author Organization [facility] [place] [address] Care Team Providers Care Industrial Gas Servicer Supervisor Name Role Phone AdeelUrbano boland Primary Care Provider Encounter Details Date Type Department Care Team (Late st Contact Info) Description 02/08/2016 Notes Only Infectious Disease at [facility] [place] [address] Es Arreaga, RN Social History Tobacco Use [...] 10-15. I called the Infusion Suite @ [facility] and asked them to please decrease the dose to Vanco 1.25 gms IV q24h. Cr 1.87 up from 1.36. This is per order Dr Dina Moon. documented in this encounter Plan of Treatment Upcoming Encounters Date Type Department Care Team (Late st Contact Info) Description 04/08/2024 1:40 PM EDT Office Visit Cardiology at [address] [phone] Jay Urban MD [facility] [place] [address] 04/15/2024 10:00 AM EDT Hospital Encounter Non-Invasive [place] [phone] Arrived documented as of this encounter Visit Diagnoses Not on filedocumented in this encounter Care Teams Industrial Gas Servicer Supervisor Relationship Specialty Start Date End Date Urbano Denis DO [facility] [address] [address] PCP - General 09/03/12 03/17/22 Hai STANLEY,Ruchi Nurse Clinic Transplant Surgery 07/30/15 documented as of this encounter
--- OUTSIDE RECORDS SUMMARY | 2024-04-04 14:10 | XMS_ITS | Encounter Summary ---
Author Organization [facility] [place] [address] Care Team Providers Care Roller Coaster Operator Name Role Phone Adeel Urbano KIRBY Primary Care Provider Encounter Details Date Type Department Care Team (Late st Contact Info) Description 04/25/2016 Orders Only Solid [place] [phone] Samia Escalante, RN H/O kidney transplant Social [...] PM EDT Office Visit Cardiology at [address] [phone] Jay Urban MD [facility] [place] [address] 04/15/2024 10:00 AM EDT Hospital Encounter Non-[place] [address] Arrived Scheduled Orders Name Type [...] * Uric acid (04/25/2016 4:04 PM EDT) [facility] Uric Acid 7.4 3.5 - 8.5 mg/dL [facility] Blood specimen (specimen) 04/25/2016 4:04 PM EDT 04/25/2016 4:10 PM EDT Narrative Resulting Agency Comment Spec In Lab Tal Eagle MD CHEMISTRY ORDERAB LES Performing Organization Address City/[facility]/ZIP Co de Phone Number [facility] [place] [address] * Cholesterol, total (04/25/2016 4:04 PM EDT) [facility] Cholesterol, Total 125 <=199 mg/dL [facility] Comment: Recommendations of the NCEP Adult Treatment Panel for the following risk cutoff thresholds for the [place] population: Desirable: <200 mg/dL Borderline High: 200-239 mg/dL High: > or = 240 mg/dL Blood specimen (specimen) 04/25/2016 4:04 PM EDT 04/25/2016 4:10 PM EDT Narrative Resulting Agency Comment Spec In Lab Tal Eagle MD CHEMISTRY ORDERAB LES [facility] [place] [address] * (ABNORMAL) Blood culture (04/25/2016 4:03 PM EDT) Blood Culture Coagulase negative Staphylococcus species detected by PCR Isolate saved. If future testing is required, contact the Microbiology Broadcast Engineer. (A) [facility] Gram Stain Anaerobic Growth detected in anaerobic bottle. Gram Positive Cocci in clusters seen Results called to and read back by DR. PACK. (A) [facility] Organism Coagulase negative Staphylococcus species(A) [facility] Organism Gram Positive Cocci in clusters(A) [facility] Blood specimen (specimen) STRUCTURE [...] Resistant Comment:Gentamicin i s not appropriate for Routt-therapy. Coagulase Negative Staphylococcus species Levofloxacin MICROSCAN METHOD Resistant Coagulase Negative Staphylococcus species Oxacillin MICROSCAN METHOD Resistant Coagulase Negative Staphylococcus species Penicillin MICROSCAN METHOD Resistant Coagulase Negative Staphylococcus species Tetracycline MICROSCAN METHOD Sensitive Coagulase Negative Staphylococcus species Trimethoprim/Sulfa MICROSCAN METHOD Resistant Coagulase Negative Staphylococcus species Vancomycin MICROSCAN METHOD Sensitive Tal Eagle MD MICROBIOLOGY - BL OOD ORDERABLES [facility] [place] [address] documented in this encounter Visit Diagnoses Diagnosis H/O kidney transplant Kidney replaced by transplant documented in this encounter Care Teams Roller Coaster Operator Relationship Specialty Start Date End Date Urbano Denis DO [address] [place] [address] PCP - General 3/1/13 9/12/22 Hai STANLEY,Ruchi Nurse Clinic Transplant Surgery 07/30/15 documented as of this encounter
--- OUTSIDE RECORDS SUMMARY | 2024-04-04 14:10 | XMS_ITS | Encounter Summary ---
Author Organization [facility] [place] [address] Care Team Providers Care Piercing Mill Operator Name Role Phone Urbano Denis DO Primary Care Provider [phone] Reason for Visit * Reason Comments Follow-up * Auth/Cert Specialty Diagnoses / Procedures Referred By Humberto flor Referred To Contact Diagnoses Fever FEVER, S/P KIDNEY TRANSPLANT Referral ID Status Reason Start Date Expiration Date Visits Re quested Visits Authorized [id number] 1 1 Encounter Details Date Type Department Care Team (Late st Contact Info) Description 04/23/2016 2:20 PM EDT [place] [phone] Santosh Arredondo MD [facility] [place] [address] Ureteral stricture of left kidney transplant Social [...] ??? Hematuria PSHx Bilateral inguinal hernias with [id number] Shoulder surgery Knee arthroscopy Vasectomy Medications: Reviewed [...] we will consider a ureteroureterostomy using his [place] ureter (would require a left nephrectomy). We [...] PM EDT Office Visit Cardiology at [address] [phone] Jay Urban MD [facility] [place] [address] 04/15/2024 10:00 AM EDT Hospital Encounter Non[place] [phone] Arrived documented as of this encounter Visit Diagnoses Diagnosis Ureteral stricture of left kidney transplant Complications of transplanted kidney documented in this encounter Care Teams Piercing Mill Operator Relationship Specialty Start Date End Date Urbano Denis DO [address] [place] [address] PCP - General 09/03/12 03/17/22 Rucih Valles RN Nurse Clinic Transplant Surgery 07/30/15 documented as of this encounter
--- OUTSIDE RECORDS SUMMARY | 2024-04-04 14:10 | XMS_ITS | Encounter Summary ---
Author Organization [facility] [address] Care Team Providers Care Director Vaccine Name Role Phone Adeel Urbano KIRBY Primary Care Provider [phone] Encounter Details Date Type Department Care Team (Late st Contact Info) Description 03/13/2016 Telephone [place] [address] Marisela Metcalf, RN Social History Tobacco Use [...] PM EDT Office Visit Cardiology at [address] [phone] Jay Urban MD [facility] [place] [address] 04/15/2024 10:00 AM EDT Hospital Encounter Non-[place]vasive [place] [phone] Arrived documented as of this encounter Visit Diagnoses Not on filedocumented in this encounter Care Teams Director Vaccine Relationship Specialty Start Date End Date Urbano Denis DO [address] [facility] [place] [address] PCP - General 09/03/12 03/17/22 Hai STANLEY,Ruchi Nurse Clinic Transplant Surgery 07/30/15 documented as of this encounter
--- OUTSIDE RECORDS SUMMARY | 2024-04-04 14:10 | XMS_ITS | Encounter Summary ---
Author Organization [facility] [place] [address] Care Team Providers Care Qualitative Field Project Manager Name Role Phone Urbano Denis DO Primary Care Provider [phone] Reason for Visit * Auth/Cert Specialty Diagnoses / Procedures Referred By Humberto t Referred To Contact Diagnoses Fever FEVER, S/P KIDNEY TRANSPLANT Referral ID Status Reason Start Date Expiration Date Visits Re quested Visits Authorized [id number] 1 1 Encounter Details Date Type Department Care Team (Latest Contact Info) Description 04/25/2016 3:20 PM EDT Laboratory Appointment Lab [address] [place] [address] Fever, unspecified fever cause; H/O kidney transplant [...] PM EDT Office Visit Cardiology at [address] [phone] Jay Urban MD [facility] [place] [address] 04/15/2024 10:00 AM EDT Hospital Encounter Non[place] [address] Arrived documented as of this encounter Procedures [...] species 10,000-49,000 cfu/ml mixed mucosal gareth (A) [facility] Organism Coagulase negative Staphylococcus species(A) [facility] Urine specimen (specimen) 04/25/2016 4:07 PM [...] Resistant Comment:Gentamicin i s not appropriate for [place]-therapy. Coagulase Negative Staphylococcus species Levofloxacin MICROSCAN METHOD Resistant Coagulase Negative Staphylococcus species Nitrofurantoin MICROSCAN METHOD Sensitive Coagulase Negative Staphylococcus species Oxacillin MICROSCAN METHOD Resistant Coagulase Negative Staphylococcus species Penicillin MICROSCAN METHOD Resistant Coagulase Negative Staphylococcus species Tetracycline MICROSCAN METHOD Sensitive Coagulase Negative Staphylococcus species Trimethoprim/Sulfa MICROSCAN METHOD Resistant Coagulase Negative Staphylococcus species Vancomycin MICROSCAN METHOD Sensitive Tal Eagle MD MICROBIOLOGY - [facility] ORDERABLES [facility] [place] [phone] * (ABNORMAL) Urinalysis with reflex Culture (04/25/2016 4:07 PM EDT) Glucose, Urine Dipstick Negative Negative mg/dL [facility] Protein, Urine Dipstick 30(A) Negative mg/dL [facility] [...] CENTER LABORATORY Leukocytes, Urine Dipstick Small(A) Negative [facility] Appearance, Urine Dipstick Clear Clear [facility] Specific [place] Urine Automated 1.024 1.002 - 1.030 [facility] Color, Urine Dipstick Yellow Yellow [facility] RBC, Urine 44(H) 0 - 3 /HPF [facility] WBC, Urine 16(H) 0 - 3 /HPF [facility] Reflex to Culture Yes [facility] Urine specimen (specimen) Urine / Unknown 04/25/2016 4:07 PM EDT 04/25/2016 4:20 PM EDT Narrative Resulting Agency Comment Spec In Lab Tal Eagle MD URINE ORDERABLES Performing Organization Address City/State/[facility] Co de Phone Number [facility] [place] [address] * (ABNORMAL) Differential, Automated (04/25/2016 4:04 PM EDT) Neutrophil % 83.7 % [facility] Neutrophil Absolute 6.31(H) 1.70 - 6.10 x10(3)/mc L [facility] Lymph % 8.8 % [facility] Lymphocytes Abs 0.7(L) 0.9 - 3.2 x10(3)/mc L [facility] Monocyte % 5.3 % [facility] Monocyte Abs 0.4 0.3 - 0.9 x10(3)/mc L [facility] Eos % 0.8 % [facility] Eosinophils Abs 0.1 0.0 - 0.4 x10(3)/mc L [facility] Basophil % 0.7 % [facility] Baso Absolute 0.0 0.0 - 0.1 x10(3)/mc L [facility] Immature Gran % 0.70 % [facility] Comment: Immature granulocytes(IG's)percentage and absolute count will include metamyelocytes, myelocytes, and promyelocytes. Blood smears from CBCs yielding IG's will be scanned manually for concordance. If this scan disagrees with the automated IG or if promyelocytes are noted, a manual differential will be performed. Immature Gran Absolute 0.05(H) 0.00 - 0.04 x10(3)/[facility] Blood specimen (specimen) 04/25/2016 4:04 PM EDT 04/25/2016 4:10 PM EDT Narrative Resulting Agency Comment Spec In Lab Tal Eagle MD HEMATOLOGY ORDERA BLES [facility] [place] [address] * (ABNORMAL) Hemogram (04/25/2016 4:04 PM EDT) White Blood Cell 7.5 4.0 - 9.5 x10(3)/[facility] Red Blood Cell 5.10 4.58 - 5.54 x10(6)/[facility] Hemoglobin 16.5 13.7 - 16.5 gm/dL [facility] Hematocrit 47.9 40.5 - 48.5 % [facility] Mean Cell Volume 93.9(H) 82.9 - 93.1 fL [facility] Mean Cell Hemoglobin 32.4(H) 27.5 - 32.1 pg [facility] Mean Cell Hemoglobin Concentration 34.4 32.0 - 35.7 gm/dL [facility] Platelet 218 145 - 357 x10(3)/ L [facility] RDW Standard Deviation 44.3 36.0 - 45.0 [facility] RDW coefficient of variation 12.9 11.4 - 13.8 % [facility] Mean Platelet Volume 8.9 7.6 - 12.9 [facility] NRBC% auto 0.0 % [facility] NRBC Absolute 0.000 0.000 - 0.000 x10(3)/mc L [facility] Blood specimen (specimen) 04/25/2016 4:04 PM EDT 04/25/2016 4:10 PM EDT Narrative Resulting Agency Comment Spec In Lab Tal Eagle MD HEMATOLOGY ORDERA BLES [facility] [place] [address] * Uric acid (04/25/2016 4:04 PM EDT) Uric Acid 7.4 3.5 - 8.5 mg/dL [facility] Blood specimen (specimen) 04/25/2016 4:04 PM EDT 04/25/2016 4:10 PM EDT Narrative Resulting Agency Comment Spec In Lab Tal Eagle MD CHEMISTRY ORDERAB LES Performing Organization Address [facility]/ZIP Co de Phone Number [facility] [place] [address] * Cholesterol, total (04/25/2016 4:04 PM EDT) [facility] Cholesterol, Total 125 <=199 mg/dL [facility]/ZIP Co de Phone Number [facility] [place] [address] * (ABNORMAL) Phosphorus (04/25/2016 4:04 PM EDT) Phosphorus 2.4(L) 2.5 - 4.5 mg/dL [facility] Blood specimen (specimen) 04/25/2016 4:04 PM EDT 04/25/2016 4:10 PM EDT Narrative Resulting Agency Comment Spec In Lab Tal Eagle MD CHEMISTRY ORDERAB LES Performing Organization Address [facility]/ZIP Co de Phone Number [facility] [place] [address] * (ABNORMAL) Magnesium (04/25/2016 4:04 PM EDT) Magnesium 0.54(L) 0.69 - 1.07 mmol/L [facility] Blood specimen (specimen) 04/25/2016 4:04 PM EDT 04/25/2016 4:10 PM EDT Narrative Resulting Agency Comment Spec In Lab Tal Eagle MD CHEMISTRY ORDERAB LES Performing Organization Address [facility]/ZIP Co de Phone Number [facility] [place] [address] * (ABNORMAL) Comprehensive metabolic panel (non-fasting) (04/25/2016 4:04 PM EDT) Glucose 139 65 - 199 mg/dL [facility] Comment:Diabetes: >=200 mg/d L plus symptoms Blood Urea Nitrogen 14 10 - 20 mg/dL [facility] Creatinine 1.53(H) 0.80 - 1.50 mg/dL [facility] [...] questions. Chloride 96(L) 98 - 107 mmol/L [facility] Carbon Dioxide 25 22 - 31 mmol/L [facility] Anion Gap 17(H) 5 - 15 mmol/L [facility] Calcium 9.5 8.5 - 10.5 mg/dL [facility] Protein, Total 7.7 6.1 - 8.0 gm/dL [facility] Albumin 4.3 3.2 - 5.2 gm/dL [facility] Aspartate Aminotransferase 23 0 - 39 unit/L [facility] Alanine Aminotransferase 25 0 - 55 unit/L [facility] Alkaline Phosphatase 63 40 - 120 unit/L [facility] Bilirubin, Total 1.6(H) 0.2 - 1.3 mg/dL [facility] Bilirubin, Direct 0.3 0.0 - 0.3 mg/dL [facility] Est Glomerular Filtration Rate 46(L) >=60 [facility] Comment: [...] the following links into your internet browser. [email or web address] Blood specimen (specimen) 04/25/2016 4:04 PM EDT 04/25/2016 4:10 PM EDT Narrative Resulting Agency Comment Spec In Lab Tal Eagle MD CHEMISTRY ORDERAB LES [facility] [place] [address] * (ABNORMAL) Blood culture (04/25/2016 4:03 PM EDT) Blood Culture Coagulase negative Staphylococcus species detected by PCR Isolate saved. If future testing is required, contact the Microbiology Utility System Operator. (A) [facility] Gram [...] Resistant Comment:Gentamicin i s not appropriate for [place]-therapy. Coagulase Negative Staphylococcus species Levofloxacin MICROSCAN METHOD Resistant Coagulase Negative Staphylococcus species Oxacillin MICROSCAN METHOD Resistant Coagulase Negative Staphylococcus species Penicillin MICROSCAN METHOD Resistant Coagulase Negative Staphylococcus species Tetracycline MICROSCAN METHOD Sensitive Coagulase Negative Staphylococcus species Trimethoprim/Sulfa MICROSCAN METHOD Resistant Coagulase Negative Staphylococcus species Vancomycin MICROSCAN METHOD Sensitive Tal Eagle MD MICROBIOLOGY - BL OOD ORDERABLES [facility] [place] [address] documented in this encounter Visit Diagnoses Diagnosis Fever, unspecified fever cause H/O kidney transplant Kidney replaced by transplant documented in this encounter Care Teams Qualitative Field Project Manager Relationship Specialty Start Date End Date Urbano Denis DO [address] [place] [address] [address] [place] [address] PCP - General 09/03/12 03/17/22 Hai STANLEY,Ruchi Nurse Clinic Transplant Surgery 07/30/15 documented as of this encounter
--- OUTSIDE RECORDS SUMMARY | 2024-04-04 14:10 | XMS_ITS | Encounter Summary ---
Author Organization [facility] [place] [address] Care Team Providers Care Kick Press Operator Name Role Phone Urbano Denis DO Primary Care Provider [phone] Reason for Visit * Auth/Cert Specialty Diagnoses / Procedures Referred By Humberto t Referred To Contact Diagnoses Fever FEVER, S/P KIDNEY TRANSPLANT Referral ID Status Reason Start Date Expiration Date Visits Re quested Visits Authorized [id number] 1 1 Encounter Details Date Type Department Care Team (Late st Contact Info) Description 04/23/2016 11:00 AM EDT Office [place] [phone] Que Amaro MD [facility] [place] [address] H/O kidney transplant Social History Tobacco Use [...] EXTREMITY performed by Que Amaro MD at [facility] MAIN OR ??? Pro transplantation of kidney N/A 09/16/2015 @KIDNEY TRANSPLANT, WITHOUT RECIPIENT NEPHRECTOMY performed by Franko Larkin MD at [facility] MAIN OR ??? Pro transplant, prep cadaver renal graft N/A 09/16/2015 @PREPARATION CADAVERIC RENAL ALLOGRAFT performed by Franko Larkin MD at [facility] MAIN OR ??? N/A 09/16/2015 ORGAN ACQUISITION RENAL, CADAVERIC performed by Franko Larkin MD at [facility] MA[facility] OR Social History Social History ??? [...] patient was prepped and drapedin supine position. Cco & President image obtained. Contrast injection confirmed catheter location. [...] PM EDT Office Visit Cardiology at [address] [phone] Jay Urban MD [facility] [place] [address] 04/15/2024 10:00 AM EDT Hospital Encounter Non-[place] [address] Arrived documented as of this [...] (Bezet) 448 ms MUSE SYSTEM Calculated P [place] 39 degrees MUSE SYSTEM Calculated R [place] -54 degrees MUSE SYSTEM Calculated T [place] -9 degrees MUSE SYSTEM INTERPRETATION Sinus rhythm with Premature supraventricular complexes Left anterior fascicular block Abnormal ECG When compared with ECG of 07-DEC-2015 20:48, No significant change was found Confirmed by MD WALLACE JOHN ([id number]) on 04/23/2016 4:59:28 PM MUSE SYSTEM 04/23/2016 11:3 5 AM EDT 04/23/2016 4:59 PM EDT Que Amaro MD ECG ORDERABLES MUSE SYSTEM documented in this encounter Visit Diagnoses Diagnosis H/O kidney transplant Kidney replaced by transplant documented in this encounter Care Teams Kick Press Operator Relationship Specialty Start Date End Date Urbano Denis DO [address] [place] [address] PCP - General 09/03/12 03/17/22 Ruchi Valles RN Nurse Clinic Transplant Surgery 07/30/15 documented as of this encounter
--- OUTSIDE RECORDS SUMMARY | 2024-04-04 14:10 | XMS_ITS | Encounter Summary ---
Author Organization [facility] [place] [address] Care Team Providers Care Hoist Cylinder Loader Name Role Phone AdeelUrbano boland Primary Care Provider Encounter Details Date Type Department Care Team (Late st Contact Info) Description 02/20/2016 Notes Only Infectious Disease at [facility] [place] [address] Es Arreaga, RN Social History Tobacco Use [...] PM EDT Office Visit Cardiology at [address] [phone] Jay Urban MD [facility] [place] [address] 04/15/2024 10:00 AM EDT Hospital Encounter Non[place] [phone] Arrived documented as of this encounter Visit Diagnoses Not on filedocumented in this encounter Care Teams Hoist Cylinder Loader Relationship Specialty Start Date End Date Urbano Denis DO [address] [place] [address] PCP - General 09/03/12 03/17/22 Ruchi Valles RN Nurse Clinic Transplant Surgery 07/30/15 documented as of this encounter
--- OUTSIDE RECORDS SUMMARY | 2024-04-04 14:10 | XMS_ITS | Encounter Summary ---
[place] [address] Care Team Providers Care Instructional Design Technologist Name Role Phone [place] Denis DO Primary Care Provider Reason for Referral * Diagnostic Test (Routine) - Duplicate Referral Specialty Diagnoses / Procedures Referred By Contac t Referred To Contact Radiology Diagnoses Ureteral stenosis of kidney transplant Procedures IR all procedures Sonu Restrepo MD [facility] [place] [address] [place] [address] Referral ID Status Reason Start Date Expiration Date Visits Requested Visits Authorized [id number] Duplicate Referral Specialty Service Requested 04/04/2016 04/04/2017 1 1 Reason for Visit * Diagnostic Test (Routine) - Duplicate Referral Specialty Diagnoses / Procedures Referred By Contpaula t Referred To Contact Radiology Diagnoses Ureteral stenosis of kidney transplant Procedures IR all procedures Sonu Restrepo MD [facility] [place] [address] [place] [address] Referral ID Status Reason Start Date Expiration Date Visits Requested Visits Authorized [id number] Duplicate Referral Specialty Service Requested 04/04/2016 04/04/2017 1 1 Encounter Details Date Type Department Care Team (Latest Contact Info) Description 03/25/2016 11:54 AM EDT - 03/25/2016 11:59 PM EDT Hospital Encounter Radiology at [facility] [place] [place] [facility] [address] Santosh Ellsworth MD [facility] [place] [address] Ureteral stenosis of kidney transplant Discharge Disposition: [...] from the original note were not included. [facility] Vascular and Interventional Radiology Discharge Instructions for [...] is during regular office hours, please call [phone]. If it is after regular office hours, or on weekends or holidays, please call [phone] and ask to speak to the Meat Hostess harpooner for Interventional Radiology. XXX You have received [...] EXTREMITY performed by Que Amaro MD at [facility] OR ??? Pro transplantation of kidney N/A 09/16/2015 @KIDNEY TRANSPLANT, WITHOUT RECIPIENT NEPHRECTOMY performed by Franko Larkin MD at [facility] OR ??? Pro transplant, prep cadaver renal graft N/A 09/16/2015 @PREPARATION CADAVERIC RENAL ALLOGRAFT performed by Franko Larkin MD at [facility] OR ??? N/A 09/16/2015 ORGAN ACQUISITION RENAL, CADAVERIC performed by Franko Larkin MD at [facility] OR Medications: Current Outpatient Prescriptions on [...] Consent: Pending - Alessandro Obando MD (Pager #[phone]) 03/24/2016 VIR PRE-PROCEDURE VIR NOTE ADDENDUM Name: [...] of : 1950 AGE 65 y.o. Address: [address] [place] [phone] (home) [phone] (work) Mobile: Telephone Information: Referring Provider: Sonu [...] EXTREMITY performed by Que Amaro MD at [facility] OR ??? Pro transplantation of kidney N/A 09/16/2015 @KIDNEY TRANSPLANT, WITHOUT RECIPIENT NEPHRECTOMY performed by Franko Larkin MD at [facility] OR ??? Pro transplant, prep cadaver renal graft N/A 09/16/2015 @PREPARATION CADAVERIC RENAL ALLOGRAFT performed by Franko Larkin MD at [facility] OR ??? N/A 09/16/2015 ORGAN ACQUISITION RENAL, CADAVERIC performed by Franko Larkin MD at [facility] OR Date/Procedure? Med's given/comments 01/08/2015: Tunneled [...] PM EDT Office Visit Cardiology at [address] [phone] Jay Urban MD [facility] [place] [address] 04/15/2024 10:00 AM EDT Hospital Encounter Non-[place] [phone] Arrived documented as of this encounter Procedures [...] was prepped and draped in supine position. Stock Worker And Deliverer image obtained. Contrast injection confirmed catheter location. [...] the entire procedure) ?? Santosh Ellsworth MD [facility] ORDERABLES documented in this encounter Visit [...] PRN, Starting on Thu03/25/16 at 1214, Until Thu03/25/16 at 1404, Pain, per unit protocol, - [...] Other, ONCE PRN, 1 dose, Starting on Thu03/25/16 at 1414, Until Thu03/25/16 at 1415, Per Protocol, Warning Vesicant/Irritant Medication , Routine Given 03/25/2016 2:15 PM EDT 20 mLs midazolam (PF) (VERSED) 1 mg/mL multi-dose injection 0.5-1 mg 0.5-1 mg, Intravenous, EVERY 3 MIN PRN, Starting on Thu03/25/16 at 1214, Until Thu03/25/16 at 1404, Sleep, - Start dose; 1 [...] mg documented in this encounter Care Teams Instructional Design Technologist Relationship Specialty Start Date End Date Albania Denis DO [address] [place] [address] PCP - General 09/03/12 03/17/22 Hai STANLEY,Ruchi Nurse Clinic Transplant Surgery 07/30/15 documented as of this encounter
--- OUTSIDE RECORDS SUMMARY | 2024-04-04 14:10 | XMS_ITS | Encounter Summary ---
[place] [address] Care Team Providers Care Greenskeeper Head Name Role Phone Urbano Denis DO Primary Care Provider Reason for Referral * Diagnostic Test (Routine) - Closed Specialty Diagnoses / Procedures Referred By Contac t Referred To Contact Radiology Diagnoses Kidney replaced by transplant Procedures IR all procedures Que Amaro MD [facility] [place] [address] [place] [address] Referral ID Status Reason Start Date Expiration Date V isits Requested Visits Authorized [id number] Closed Specialty Service Requested 02/26/2016 02/25/2017 1 1 Reason for Visit * Diagnostic Test (Routine) - Closed Specialty Diagnoses / Procedures Referred By Contac t Referred To Contact Radiology Diagnoses Kidney replaced by transplant Procedures IR all procedures Que Amaro MD [facility] [place] [address] [place] [address] Referral ID Status Reason Start Date Expiration Date V isits Requested Visits Authorized [id number] Closed Specialty Service Requested 02/26/2016 02/25/2017 1 1 Encounter Details Date Type Department Care Team (Late st Contact Info) Description 03/04/2016 11:50 AM EDT - 03/04/2016 11:59 PM EDT Hospital Encounter Radiology at [facility] [place] [address] Que Amaro MD [facility] [place] [address] Kidney replaced by transplant Discharge Disposition: Home [...] Issa RN - 03/04/2016 2:13 PM EDT [facility] Vascular and Interventional Radiology Discharge Instructions for [...] is during regular office hours, please call [phone]. If it is after regular office hours, or on weekends or holidays, please call [phone] and ask to speak to the Internal Combustion Engine Assembler solar panel installation supervisor for Interventional Radiology. XXX You have received [...] in IR. Hebert Moreira IR Fellow Pager# [phone] * Sharmaine Hawkins RN - 02/28/2016 3:34 PM EDT [facility] Name: ETHEL AKINS Date of : 1950 AGE 65 y.o. Address: [address] [place] [phone] (home) [phone] (work) Mobile: Telephone Information: Referring Provider: Que [...] EXTREMITY performed by Que Amaro MD at [facility] MAIN OR ??? Pro transplantation of kidney N/A 09/16/2015 @KIDNEY TRANSPLANT, WITHOUT RECIPIENT NEPHRECTOMY performed by Franko Larkin MD at [facility] MAIN OR ??? Pro transplant, prep cadaver renal graft N/A 09/16/2015 @PREPARATION CADAVERIC RENAL ALLOGRAFT performed by Franko Larkin MD at [facility] OR ??? N/A 09/16/2015 ORGAN ACQUISITION RENAL, CADAVERIC performed by Franko Larkin MD at [facility] OR Date/Procedure? Med's given/comments 01/08/2015: Tunneled HD [...] patient was prepped and drapedin supine position. Photo Tech image obtained. Contrast injection confirmed catheter location. [...] PM EDT Office Visit Cardiology at [address] [phone] Jay Urban MD [facility] [place] [address] 04/15/2024 10:00 AM EDT Hospital Encounter [place] [phone] Arrived documented as of this encounter Procedures [...] was prepped and draped in supine position. Photo Tech image obtained. Contrast injection confirmed catheter location. [...] antegrade study. Resident/Fellow: ??Henrique Restrepo Attending: Dr. Gemery, I was present throughout this procedure. Que Amaro MD IMG IR ORDERAB LES documented in this encounter [...] mg documented in this encounter Care Teams Greenskeeper Head Relationship Specialty Start Date End Date Urbano Denis DO [address] [place] [address] [address] [place] [address] PCP - General 09/03/12 03/17/22 Ruchi Valles RN Nurse Clinic Transplant Surgery 07/30/15 documented as of this encounter
--- OUTSIDE RECORDS SUMMARY | 2024-04-04 14:10 | XMS_ITS | Encounter Summary ---
[place] [address] Care Team Providers Care Pigment Presser Name Role Phone Urbano Denis DO Primary Care Provider [phone] Reason for Referral * Diagnostic Test (Routine) - Duplicate Referral Specialty Diagnoses / Procedures Referred By Humberto flor Referred To Contact Radiology Diagnoses Ureteral stenosis of kidney transplant Procedures IR all procedures Sonu Restrepo MD [facility] [place] [address] [place] [address] Referral ID Status Reason Start Date Expiration Date Visits Requested Visits Authorized [id number] Duplicate Referral Specialty Service Requested 04/04/2016 04/04/2017 1 1 Encounter Details Date Type Department Care Team (Late st Contact Info) Description 03/04/2016 [place] [address] Sonu Restrepo MD [facility] [place] [address] Ureteral stenosis of kidney transplant [...] PM EDT Office Visit Cardiology at [address] [phone] Jay Urban MD [facility] [place] [address] 04/15/2024 10:00 AM EDT Hospital Encounter [place] [phone] Arrived documented as of this encounter Results [...] was prepped and draped in supine position. Worm Raiser image obtained. Contrast injection confirmed catheter location. [...] kidney documented in this encounter Care Teams Pigment Presser Relationship Specialty Start Date End Date Urbano Denis DO [address] [place] [address] [address] [facility] [address] [place] [address] PCP - General 09/03/12 03/17/22 Ruchi Valles RN Nurse Clinic Transplant Surgery 07/30/15 documented as of this encounter
--- OUTSIDE RECORDS SUMMARY | 2024-04-04 14:10 | XMS_ITS | Encounter Summary ---
Author Organization [facility] [place] [address] Care Team Providers Care Correction Warden Name Role Phone AdeelUrbano toscano Primary Care Provider Encounter Details Date Type Department Care Team (Late st Contact Info) Description 04/25/2016 Orders Only [place] [phone] Ellen Heller MD [facility] [place] [address] Fever, unspecified fever cause Social History Tobacco [...] PM EDT Office Visit Cardiology at [address] [phone] Jay Urban MD [facility] [place] [address] 04/15/2024 10:00 AM EDT Hospital Encounter Non-[place] [phone] Arrived documented as of this encounter Results * (ABNORMAL) Phosphorus (04/25/2016 4:04 PM EDT) Pathologist [facility] Phosphorus 2.4(L) 2.5 - 4.5 mg/dL [facility] Blood specimen (specimen) 04/25/2016 4:04 PM EDT 04/25/2016 4:10 PM EDT Narrative Resulting Agency Comment Spec In Lab Tal Eagle MD CHEMISTRY ORDERAB LES Performing Organization Address [facility]/ZIP Co de Phone Number [facility] [place] [address] * (ABNORMAL) Magnesium (04/25/2016 4:04 PM EDT) [facility] Magnesium 0.54(L) 0.69 - 1.07 mmol/L [facility] Blood specimen (specimen) 04/25/2016 4:04 PM EDT 04/25/2016 4:10 PM EDT Narrative Resulting Agency Comment Spec In Lab Tal Eagle MD CHEMISTRY ORDERAB LES Performing Organization Address [facility]/ZIP Co de Phone Number [facility] [place] [address] * (ABNORMAL) Comprehensive metabolic panel (non-fasting) (04/25/2016 4:04 PM EDT) [facility] Glucose 139 65 - 199 mg/dL [facility] Comment:Diabetes: >=200 mg/d L plus symptoms Blood Urea Nitrogen 14 10 - 20 mg/dL [facility] Creatinine 1.53(H) 0.80 - 1.50 mg/dL [facility] Comment: Please note that the pediatric reference intervals supplied above were not validated at [facility]. Results from pediatric patients should be interpreted in conjunction to the patient's age, height and muscle mass. Sodium 138 135 - 145 mmol/L [facility] Potassium 3.8 3.5 - 5.0 mmol/L [facility] Comment: Please note: ??Patients with WBC >100,000 may have falsely elevated Potassium levels. ??For accurate Potassium quantification in these patients send serum separator tube (gold top) for subsequent determinations. ??Contact the Clinical Chemistry Laboratory if there are any questions. Chloride 96(L) 98 - 107 mmol/L [facility] Carbon Dioxide 25 22 - 31 mmol/L [facility] Anion Gap 17(H) 5 - 15 mmol/L [facility] Calcium 9.5 8.5 - 10.5 mg/dL [facility] Protein, Total 7.7 6.1 - 8.0 gm/dL [facility] Albumin 4.3 3.2 - 5.2 gm/dL [facility] Aspartate Aminotransferase 23 0 - 39 unit/L [facility] Alanine Aminotransferase 25 0 - 55 unit/L [facility] Alkaline Phosphatase 63 40 - 120 unit/L [facility] Bilirubin, Total 1.6(H) 0.2 - 1.3 mg/dL [facility] Bilirubin, Direct 0.3 0.0 - 0.3 mg/dL [facility] Est Glomerular Filtration Rate 46(L) >=60 [facility] Comment: [...] the following links into your internet browser. [email or web address] Blood specimen (specimen) 04/25/2016 4:04 PM EDT 04/25/2016 4:10 PM EDT Narrative Resulting Agency Comment Spec In Lab Tal Eagle MD CHEMISTRY ORDERAB LES [facility] [place] [address] documented in this encounter Visit Diagnoses Diagnosis Fever, unspecified fever cause documented in this encounter Care Teams Correction Warden Relationship Specialty Start Date End Date Urbano Denis DO [address] [place] [address] [place] [address] PCP - General 09/03/12 03/17/22 Ruchi Valles RN Nurse Clinic Transplant Surgery 07/30/15 documented as of this encounter
--- OUTSIDE RECORDS SUMMARY | 2024-04-04 14:10 | XMS_ITS | Encounter Summary ---
[place] [address] Care Team Providers Care Back Pad Inspector Name Role Phone Adeel Urbano KIRBY Primary Care Provider [phone] Encounter Details Date Type Department Care Team (Late st Contact Info) Description 04/25/2016 Telephone [place] [phone] Margarette Kuhn, RN Social History Tobacco Use [...] PM EDT Office Visit Cardiology at [address] [phone] Jay Urban MD [facility] [place] [address] 04/15/2024 10:00 AM EDT Hospital Encounter Non[place] [phone] Arrived documented as of this encounter Visit Diagnoses Not on filedocumented in this encounter Care Teams Back Pad Inspector Relationship Specialty Start Date End Date Urbano Denis DO [address] [place] [address] [address] PCP - General 09/03/12 03/17/22 Hai STANLEY,Ruchi Nurse Clinic Transplant Surgery 07/30/15 documented as of this encounter
--- OUTSIDE RECORDS SUMMARY | 2024-04-04 14:10 | XMS_ITS | Encounter Summary ---
Author Organization [facility] [place] [address] Care Team Providers Care Ironer Or Presser Name Role Phone AdeelUrbano toscano Primary Care Provider Encounter Details Date Type Department Care Team (Late st Contact Info) Description 02/26/2016 Notes Only Infectious Disease at [facility] [place] [address] Es Arreaga, RN Social History Tobacco Use [...] PM EDT Office Visit Cardiology at [address] [phone] Jay Urban MD [facility] [place] [address] 04/15/2024 10:00 AM EDT Hospital Encounter Non-Invasive [place] [address] Arrived documented as of this encounter Visit Diagnoses Not on filedocumented in this encounter Care Teams Ironer Or Presser Relationship Specialty Start Date End Date Urbano Denis DO [address] [place] [address] [address] [address] PCP - General 09/03/12 03/17/22 Ruchi Valles RN Nurse Clinic Transplant Surgery 07/30/15 documented as of this encounter
--- OUTSIDE RECORDS SUMMARY | 2024-04-04 14:10 | XMS_ITS | Encounter Summary ---
Author Organization [facility] [address] [place] [address] Care Team Providers Care Plant Attendant Or Assistant Operator Name Role Phone Urbano Denis DO Primary Care Provider [phone] Reason for Visit * Reason Comments Follow-up Aftercare, Instructor Business Education Use Meds Encounter Details Date Type Department Care Team (Late st Contact Info) Description 02/26/2016 12:00 PM EDT Office [place] [address] Aubrey Horvath MD [facility] [place] [address] Bacteremia; Pyelonephritis, acute; custodial current use of antibiotics; Encounter for medication [...] in this encounter Progress Notes * Aubrey Horvath MD - 02/26/2016 12:00 PM EDT Infectious [...] pain over kidney, getting antibiotics daily at [facility] through PICC. PICC working well. Physical Exam: [...] PM EDT Office Visit Cardiology at [address] [phone] Jay Urban MD [facility] [place] [address] 04/15/2024 10:00 AM EDT Hospital Encounter Non-[place]vasive [place] [phone] Arrived documented as of this encounter Visit Diagnoses Diagnosis Bacteremia Pyelonephritis, acute Acute pyelonephritis without lesion of renal medullary necrosis custodial current use of antibiotics Encounter for long-term (current) use of antibiotics Encounter for medication monitoring Encounter for therapeutic drug monitoring documented in this encounter Care Teams Plant Attendant Or Assistant Operator Relationship Specialty Start Date End Date Urbano Denis DO [address] [place] [address] 1 [place] [address] PCP - General 09/03/12 03/17/22 Ruchi Valles RN Nurse Clinic Transplant Surgery 07/30/15 documented as of this encounter
--- OUTSIDE RECORDS SUMMARY | 2024-04-04 14:11 | XMS_ITS | Encounter Summary ---
[place] [address] Care Team Providers Care Marketing Intern Name Role Phone Urbano Denis DO Primary Care Provider + [phone] Reason for Referral * Consultation (Routine) - Closed Specialty Diagnoses / Procedures Referred By Contpaula t Referred To Contact Infectious Diseases Diagnoses Bacteremia Ramez Serrano [facility] [place] [address] Ramez Serrano [facility] [place] [address] Referral ID Status Reason Start Date Expiration Date V isits Requested Visits Authorized [id number] Closed Assume Subset of Care 02/04/2016 02/03/2017 1 1 * Diagnostic Test (Routine) - Closed Specialty Diagnoses / Procedures Referred By Contac t Referred To Contact Radiology Diagnoses Kidney replaced by transplant Procedures IR all procedures Epifanio Torre MD [facility] [place] [address] [facility] [place] [address] Referral ID Status Reason Start Date Expiration Date V isits Requested Visits Authorized [id number] Closed Specialty Service Requested 01/31/2016 01/30/2017 1 1 Reason for Visit * Auth/Cert Specialty Diagnoses / Procedures Referred By Contac t Referred To Contact Diagnoses UTI, FEVER S/P KIDNEY TRANSPLANT Referral ID Status Reason Start Date Expiration Date Visits Re quested Visits Authorized [id number] 1 1 Encounter Details Date Type Department Care Team (Late st Contact Info) Description 01/29/2016 10:10 PM EDT - 02/05/2016 12:27 PM EDT Hospital Encounter [address] [place] [address] Madhu Eagle MD [facility] [place] [address] Que Amaro MD [facility] [place] [address] Kidney replaced by transplant; Bacteremia; ESRD (end [...] Ethel Akins Patient Age: 65 y.o. Language: Canadian Race: White Ethnicity: Not nor Admit date: 01/29/2016 Discharge date and time: 02/05/2016 Attending Physician: Que Amaro,* Discharge Physician: MADHU EAGLE CHRISTOPHER E Follow-up Recommendations for Providers: -Please contact the [facility] Transplant team before changing any medications in Mr. Akins's regimen. Inpatient Provider Contact Information: Que Amaro M.D. [facility] [phone] Discharge Diagnoses (Hospital Problems) and Secondary Diagnoses [...] of breath. He was directly admitted to [facility] on 01/29/16 for further work-upand treatment. ?? Hospital Course: ?? Ethel Akins was admitted to [facility] on the night of 01/29/16. Upon admission [...] was prepped and draped in supine position. Database Security Administrator image obtained. 7 cc 1% lidocaine SQ [...] cigars, only sometimes Multidisciplinary Team Recommendations: - DIRECTOR DATA ANALYTICS TEAM: The cooperative education coordinator has completed the standard post operativepatient [...] 02/12/2016 7:30 AM Santosh Arredondo MD Urology [phone] 02/15/2016 9:00 AM TRANSPLANT, COORDINATOR Transplant [phone] 02/15/2016 10:00 AM Que Amaro MD Transplant [phone] 04/10/2016 11:30 AM Tulio Marcelo MD Gastroenterology [phone] 09/15/2016 9:00 AM LAB, THREE L [facility] Lab 3L [phone] 09/15/2016 10:00 AM Madhu Eagle MD Transplant [phone] Future Orders Complete By Expires OPAT: Order / Recommendation for Post Discharge IV Antibiotic Management [[id number] CPT(R)] As directed Process Instructions: If no progress note charted, please enter Clinical details in comments. Scheduling Instructions: Comments: Please Fax all results to: OPAT Program Infectious Disease Section [facility], [place] [address] FAX: Line care instructions per [facility] OPAT Program protocol. After hours, please contact the Infectious Disease Physician airborne missions systems at . If this order was signed greater than 72 hours prior to [facility] discharge, please call to confirm the accuracy [...] the transplant clinic: Solid Organ Transplant Department [facility], section [address] [place], [place] [id number] Future Appointments Date Time Provider Department Center 02/12/2016 7:30 AM Santosh Arredondo MD Leb Uro [facility] 02/15/2016 9:00 AM TRANSPLANT, COORDINATOR Fatimahb Trans 2M [facility] 02/15/2016 10:00 AM Que Amaro MD Leb Trans 2M [facility] 04/10/2016 11:30 AM Tulio Marcelo MD Leb Gastro [facility] 09/15/2016 9:00 AM LAB, THREE L Lab [address] [place] [address] 09/15/2016 10:00 AM Madhu Eagle MD Leb [...] Department anytime (day, night, weekend, holiday) at [phone] . After hours, please follow the instructions on the message. You can also reach the cooperative education coordinator after hours by calling (ask for the cooperative education coordinator on-call). Discharge References/Attachments None documented in [...] level. Will discharge with NU tube to [place] as per Urology recommendations. Will plan for [...] pneumonia or other acute cardiopulmonary process. ?? FUEL TECHNICIAN: 12/29 CT a/p WO: 1. 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 This information will be conveyed to the family as well as DEDE Dukes. DEDE NGUYEN Hadoop Application Developer for ICU's and ISCU Pager [phone] * John Keeys MD - 02/01/2016 1:32 PM EDT Brief [...] of : 1950 AGE 65 y.o. Address: [address] [place] [phone] (home) [phone] (work) Mobile: Telephone Information: Referring Provider: No [...] EXTREMITY performed by Que Amaro MD at [facility] OR ??? Pro transplantation of kidney N/A 09/16/2015 @KIDNEY TRANSPLANT, WITHOUT RECIPIENT NEPHRECTOMY performed by Franko Larkin MD at [facility] OR ??? Pro transplant, prep cadaver renal graft N/A 09/16/2015 @PREPARATION CADAVERIC RENAL ALLOGRAFT performed by Franko Larkin MD at [facility] OR ??? N/A 09/16/2015 ORGAN ACQUISITION RENAL, CADAVERIC performed by Franko Larkin MD at [facility] OR Date/Procedure? Med's given/comments 01/08/2015: Tunneled [...] of Care Management ?? 01/30/16 Ethel Akins [id number] Date of : 1950 ? Admission Diagnosis: [...] Narrative None on file ?? Lives in [place], [place] in own home w/ spouse Mara and 26 y.o. Son. ? Code Status: Full. Advance Directives:none in [facility]. Admission Status: written and signed by attending as IPI. ?? Insurance: Medicare A,B and D through [employer] and BC/BS. Pharmacy: [address], [place] ?? Baseline Functional Status: self [...] changing needs. ? Malina Phelan RN, MSN Document Review AttorneyCitrus Fruit Packer of Care Management Pager [phone] Phone: [phone] * John Keyes MD - 01/30/2016 8:50 [...] of breath. He was directly admitted to [facility] for further work-up and treatment. PMH/PSH: Past [...] EXTREMITY performed by Que Amaro MD at [facility] MAIN OR ??? Pro transplantation of kidney N/A 09/16/2015 @KIDNEY TRANSPLANT, WITHOUT RECIPIENT NEPHRECTOMY performed by Franko Larkin MD at [facility] OR ??? Pro transplant, prep cadaver renal graft N/A 09/16/2015 @PREPARATION CADAVERIC RENAL ALLOGRAFT performed by Franko Larkin MD at [facility] OR ??? N/A 09/16/2015 ORGAN ACQUISITION RENAL, CADAVERIC performed by Franko Larkin MD at [facility] OR MEDICATIONS: No current facility-administered medications on [...] to the planned procedure. Hand Hygiene: The audioprosthologist did perform hand hygiene prior to line insertion. Catheter type: PICC Lot number: [id number] Procedure Technique: Skin was prepped with chlorhexidine. [...] 02/04/2016 3:17 PM EDT DEDE informed by [facility] that patients PCP needs to co-sign [...] Health Knowledge, Opportunity for Enhanced (Adult, NICU, [place], Obstetrics, Pediatric) Goal: Knowledgeable about Health Subject/Topic Patient will demonstrate the desired outcomes. Outcome: Outcome (s) achieved Date Met: 02/04/16 Peripherally Inserted Central Catheter (PICC) Teaching Sheet Peripherally inserted central catheters (atdz-ea-yfgw) (PICC) are used when you need IV [...] midline catheter? PICC lines are used for mcc treatments. PICC lines may be used for [...] can be set up via the nurse Document Review Attorney to help you. What are possible complications [...] Efficacy, Safety, Use, and Administration of [employer], [employer] 2005 * Plan of Care - [...] Urine culture ?? Urine culture Nephrostomy Urine [[id number]] (Abnormal) Collected: 01/30/16 0121 ? Lab Status: Edited Result - FINAL Specimen: Nephrostomy Urine Updated: 02/03/16830 ? Urine Culture -- (A) ? Less than 1,000 cfu/mL Coagulase negative Staphylococcus species Susceptibility testing not routinely performed for Coagulase Negative Staphylococcus species and other Gram Positive organisms from urine. Blood culture [[id number]] (Abnormal) Collected: 01/30/16 0020 ? Lab Status: Preliminary result Specimen: Blood Updated: 02/02/16810 ? Blood Culture -- (A) ? Coagulase negative Staphylococcus species isolated Isolate saved. If future testing is required, contact the Microbiology Leaf Sorter. ? Gram Stain Aerobic -- (A) ? [...] follow up in ~4weeks for discussion of mcc management options -Please do not hesitate to [...] Arredondo * Consult Note - Eleanor Bird [facility] - 02/03/2016 8:27 AM EDT Clinical Pharmacist Note-Vancomycin Ethel Akins [id number] 1950 Ethel Akins is a 65 y.o. [...] have. Alternately, during off-hours you may call [phone] to contact a pharmacist. ELEANOR BIRD RPH Ext [phone] * Plan of Care - Tamela Mckeon [...] like to go to infusion suite at [facility]. Patient does not feel that he [...] didn't really feel. He had traveled to [place] with his family, and returned the day prior. He didn't have any focal symptoms at the time, denies abdominal pain, SOB, cough, CP. There was no other instrumentation between 01/02 and his admission now. He was admitted directly to the [facility] transplant surgical service for evaluation and management. [...] No pneumonia or other acute cardiopulmonary process. FUEL TECHNICIAN: 12/29 CT a/p WO: 1. Transplant kidney [...] Sharmaine Eden MD Infectious Disease Fellow Pager #[phone] I have seen the patient and reviewed [...] follow. Prakash Che MD Urology Consult Pager [phone] * Plan of Care - Anastasiia Denney [...] without vomiting. Pt had spike fever 38.6@2310. crew caller MD De La Vega notified. Blood culture [...] EXTREMITY performed by Que Amaro MD at [facility] MAIN OR ??? Pro transplantation of kidney N/A 09/16/2015 @KIDNEY TRANSPLANT, WITHOUT RECIPIENT NEPHRECTOMY performed by Franko Larkin MD at [facility] MAIN OR ??? Pro transplant, prep cadaver renal graft N/A 09/16/2015 @PREPARATION CADAVERIC RENAL ALLOGRAFT performed by Franko Larkin MD at [facility] MA[facility] OR ??? N/A 09/16/2015 ORGAN ACQUISITION RENAL, CADAVERIC performed by Franko Larkin MD at [facility] MAIN OR Social History: Social History [...] follow. Prakash Che MD Urology Consult Pager [phone] * Consult Note - Jayde Tristan RPH - 01/29/2016 11:03 PM EDT Clinical Pharmacist Note - Vancomycin Ethel Akins [id number] 1950 Ethel Akins is a 65 y.o. [...] Alternately, during off-hours (9p-7a) you may call [phone] to contact a pharmacist. JAYDE TRISTAN RPH documented in this encounter Plan of Treatment Upcoming Encounters Date Type Department Care Team (Late st Contact Info) Description 04/08/2024 1:40 PM EDT Office Visit Cardiology at [address] [place] [phone] Jay Urban MD [place] [address] 04/15/2024 10:00 AM EDT Hospital Encounter Non-Invasive Cardiology Lab [facility] [place] [address] Arrived Scheduled Referrals Name Type Priority [...] Blood Culture No growth at 5 days. [facility] Blood specimen (specimen) STRUCTURE OF RIGHT HAND / Unknown 02/05/2016 7:22 AM EDT 02/05/2016 7:44 AM EDT Narrative Resulting Agency Comment Spec In Lab Que Amaro MD MICROBIOLOGY - BLOOD ORDERABLES [facility] [place] [address] * Differential, Automated (02/05/2016 3:55 AM EDT) Pathologist [facility] Neutrophil % 67.5 % [facility] Neutrophil Absolute 5.66 1.50 - 6.30 x10(3)/[facility] LABORATORY Lymph % 20.4 % [facility] Lymphocytes Abs 1.7 1.0 - 3.6 x10(3)/[facility] LABORATORY Monocyte % 6.4 % [facility] Monocyte Abs 0.5 0.2 - 1.0 x10(3)/[facility]OR[facility] Eos % 4.2 % [facility] Eosinophils Abs 0.4 0.0 - 0.5 x10(3)/[facility] Basophil % 1.0 % [facility] Baso Absolute 0.1 0.0 - 0.2 x10(3)/[facility] Immature Gran % 0.50 % [facility] Comment: Immature granulocytes(IG's)percentage and absolute count will include metamyelocytes, myelocytes, and promyelocytes. Blood smears from CBCs yielding IG's will be scanned manually for concordance. If this scan disagrees with the automated IG or if promyelocytes are noted, a manual differential will be performed. Immature Gran Absolute 0.04 0.00 - 0.05 x10(3)/[facility] Blood specimen (specimen) 02/05/2016 3:55 AM EDT 02/05/2016 4:13 AM EDT Narrative Resulting Agency Comment Spec In Lab Que Amaro MD HEMATOLOGY ORD ERABLES [facility] [place] [address] * (ABNORMAL) Hemogram (02/05/2016 3:55 AM EDT) White Blood Cell 8.4 4.0 - 10.0 x10(3)/[facility] LABORATORY Red Blood Cell 4.23(L) 4.63 - 6.08 x10(6)/mc L [facility] Hemoglobin 13.5(L) 13.7 - 17.5 gm/dL [facility] Hematocrit 38.7(L) 40.0 - 51.0 % [facility] Mean Cell Volume 91.5 79.0 - 92.0 fL [facility] Mean Cell Hemoglobin 31.9 25.6 - 32.2 pg [facility] Mean Cell Hemoglobin Concentration 34.9 32.0 - 36.5 gm/dL [facility] Platelet 215 145 - 370 x10(3)/mc L [facility] RDW Standard Deviation 48.2(H) 35.0 - 46.0 fL [facility] RDW coefficient of variation 14.4 10.9 - 14.4 % [facility] Mean Platelet Volume 9.0 9.0 - 12.0 fL [facility] NRBC% auto 0.0 % [facility] NRBC Absolute 0.000 0.000 - 0.012 x10(3)/mc L [facility] Blood specimen (specimen) 02/05/2016 3:55 AM EDT 02/05/2016 4:13 AM EDT Narrative Resulting Agency Comment Spec In Lab Que Amaro MD HEMATOLOGY ORD AMANDABLES Performing Organization Address City/State/[facility] Co de Phone Number [facility] [place] [address] * Phosphorus (02/05/2016 3:55 AM EDT) Phosphorus 2.9 2.5 - 4.5 mg/dL [facility] Blood specimen (specimen) 02/05/2016 3:55 AM EDT 02/05/2016 4:13 AM EDT Narrative Resulting Agency Comment Spec In Lab Que Amaro MD CHEMISTRY ORDBhargav JENNINGS Performing Organization Address City/[facility]/ZIP Co de Phone Number [facility] [place] [address] * (ABNORMAL) Magnesium (02/05/2016 3:55 AM EDT) [facility] Magnesium 0.57(L) 0.69 - 1.07 mmol/L [facility] Blood specimen (specimen) 02/05/2016 3:55 AM EDT 02/05/2016 4:13 AM EDT Narrative Resulting Agency Comment Spec In Lab Que Amaro MD CHEMISTRY ROCHELLE JENNINGS Performing Organization Address [facility] Co de Phone Number [facility] [place] [address] * (ABNORMAL) Basic Metabolic Panel (non-fasting) (02/05/2016 3:55 AM EDT) [facility] Glucose 135 65 - 199 mg/dL [facility] Comment:Diabetes: >=200 mg/d L plus symptoms Blood Urea Nitrogen 12 10 - 20 mg/dL [facility] Creatinine 1.36 0.80 - 1.50 mg/dL [facility] Comment: Please note that the pediatric reference intervals supplied above were not validated at [facility]. Results from pediatric patients should be interpreted in conjunction to the patient's age, height and muscle mass. Sodium 140 135 - 145 mmol/L [facility] Calcium 9.1 8.5 - 10.5 mg/dL [facility] Est Glomerular Filtration Rate 52(L) >=60 [facility] Comment: This [...] the following links into your internet browser. [email or web address] Blood specimen (specimen) 02/05/2016 3:55 AM EDT 02/05/2016 4:13 AM EDT Narrative Resulting Agency Comment Spec In Lab Que Amaro MD CHEMISTRY ROCHELLE JENNINGS [facility] [place] [address] * Place PICC Line: Contact Vascular Access Page [phone] Extremity to exclude: DO NOT use LEFT [...] to the planned procedure. Hand Hygiene: The audioprosthologist did perform hand hygiene prior to line insertion. Catheter type: PICC Lot number: [id number] Procedure Technique: Skin was prepped with chlorhexidine. [...] at the superior cavoatrialjunction. Que Amaro MD G FLUORO ORD ERABLES * Tacrolimus level (02/04/2016 7:40 AM EDT) Tacrolimus 9.1 ng/mL [facility] Comment: Trough therapeutic: ??5-15 ng/mL Performed by ultra-performance liquid chromatography tandem mass spectrometry (UPLCMS/MS). Blood specimen (specimen) 02/04/2016 7:40 AM EDT 02/04/2016 11:48 AM EDT Narrative Resulting Agency Comment Spec In Lab Que JENNINGS Performing Organization Address [facility] Co de Phone Number [facility] [place] [address] * Phosphorus (02/04/2016 4:38 AM EDT) Pathologist [facility] Phosphorus 2.9 2.5 - 4.5 mg/dL [facility] Blood specimen (specimen) 02/04/2016 4:38 AM EDT 02/04/2016 4:50 AM EDT Narrative Resulting Agency Comment Spec In Lab Que Amaro MD CHEMISTRY ROCHELLE JENNINGS Performing Organization Address [facility] Co de Phone Number [facility] [place] [address] * (ABNORMAL) Magnesium (02/04/2016 4:38 AM EDT) Magnesium 0.61(L) 0.69 - 1.07 mmol/L [facility] Blood specimen (specimen) 02/04/2016 4:38 AM EDT 02/04/2016 4:50 AM EDT Narrative Resulting Agency Comment Spec In Lab Que Amaro MD CHEMISTRY ROCHELLE JENNINGS Performing Organization Address City/[facility]/ZIP Co de Phone Number [facility] [place] [address] * Blood culture (02/04/2016 4:38 AM EDT) Blood Culture No growth at 5 days. [facility] Blood specimen (specimen) STRUCTURE OF RIGHT HAND / Unknown 02/04/2016 4:38 AM EDT 02/04/2016 5:17 AM EDT Narrative Resulting Agency Comment Spec In Lab Que Amaro MD MICROBIOLOGY - BLOOD ORDERABLES [facility] [place] [address] * (ABNORMAL) Basic Metabolic Panel (non-fasting) (02/04/2016 4:38 AM EDT) Glucose 144 65 - 199 mg/dL [facility] Comment:Diabetes: >=200 mg/d L plus symptoms Blood Urea Nitrogen 12 10 - 20 mg/dL [facility] Creatinine 1.32 0.80 - 1.50 mg/dL [facility] Comment: Please note that the pediatric reference intervals supplied above were not validated at [facility]. Results from pediatric patients should be interpreted in conjunction to the patient's age, height and muscle mass. Sodium 141 135 - 145 mmol/L [facility] [...] questions. Chloride 102 98 - 107 mmol/L [facility] Carbon Dioxide 23 22 - 31 mmol/L [facility] Anion Gap 16(H) 5 - 15 mmol/L [facility] Calcium 9.6 8.5 - 10.5 mg/dL [facility] Est Glomerular Filtration Rate 54(L) >=60 [facility] Comment: This [...] the following links into your internet browser. [email or web address] Blood specimen (specimen) 02/04/2016 4:38 AM EDT 02/04/2016 4:50 AM EDT Narrative Resulting Agency Comment Spec In Lab Que Amaro MD CHEMISTRY ORDBhargav JENNINGS [facility] [place] [address] * Differential, Automated (02/04/2016 4:38 AM EDT) Neutrophil % 68.1 % [facility] Neutrophil Absolute 4.82 1.50 - 6.30 x10(3)/[facility] LABOR[facility] Lymph % 20.3 % [facility] Lymphocytes Abs 1.4 1.0 - 3.6 x10(3)/[facility] Monocyte % 6.1 % [facility] Monocyte Abs 0.4 0.2 - 1.0 x10(3)/[facility] Eos % 4.1 % [facility] Eosinophils Abs 0.3 0.0 - 0.5 x10(3)/[facility] Basophil % 1.1 % [facility] Baso Absolute 0.1 0.0 - 0.2 x10(3)/[facility] Immature Gran % 0.30 % WHITE [...] Gran Absolute 0.02 0.00 - 0.05 x10(3)/mcL [facility] Blood specimen (specimen) 02/04/2016 4:38 AM EDT 02/04/2016 4:50 AM EDT Narrative Resulting Agency Comment Spec In Lab Que Amaro MD HEMATOLOGY ORD ERABLES [facility] [place] [address] * (ABNORMAL) Hemogram (02/04/2016 4:38 AM EDT) White Blood Cell 7.1 4.0 - 10.0 x10(3)/mc L [facility] Red Blood Cell 4.48(L) 4.63 - 6.08 x10(6)/mc L [facility] Hemoglobin 14.0 13.7 - 17.5 gm/dL [facility] Hematocrit 40.3 40.0 - 51.0 % [facility] Mean Cell Volume 90.0 79.0 - 92.0 fL [facility] Mean Cell Hemoglobin 31.3 25.6 - 32.2 pg [facility] Mean Cell Hemoglobin Concentration 34.7 32.0 - 36.5 gm/dL [facility] Platelet 198 145 - 370 x10(3)/mc L [facility] RDW Standard Deviation 46.6(H) 35.0 - 46.0 fL [facility] RDW coefficient of variation 14.2 10.9 - 14.4 % [facility] Mean Platelet Volume 9.3 9.0 - 12.0 fL [facility] [facility] NRBC% auto 0.0 % [facility] NRBC Absolute 0.000 0.000 - 0.012 x10(3)/mc L [facility] Blood specimen (specimen) 02/04/2016 4:38 AM EDT 02/04/2016 4:50 AM EDT Narrative Resulting Agency Comment Spec In Lab Que Amaro MD HEMATOLOGY ORD ERABLES Performing Organization Address [facility] de Phone Number [facility] [place] [address] * Vancomycin, trough (02/03/2016 10:09 PM EDT) [facility] Vancomycin, Trough 10.8 mg/L [facility] Comment: Therapeutic range for complicated [...] MD CHEMISTRY ORDE DICK Performing Organization Address [facility] Co de Phone Number [facility] [place] [address] * Differential, Automated (02/03/2016 5:02 AM EDT) [facility] Neutrophil % 67.6 % [facility] Neutrophil Absolute 4.57 1.50 - 6.30 x10(3)/[facility] Lymph % 19.6 % [facility] Lymphocytes Abs 1.3 1.0 - 3.6 x10(3)/[facility] Monocyte % 6.6 % [facility] Monocyte Abs 0.4 0.2 - 1.0 x10(3)/[facility] Eos % 4.9 % [facility] Eosinophils Abs 0.3 0.0 - 0.5 x10(3)/[facility] Basophil % 1.2 % [facility] Baso Absolute 0.1 0.0 - 0.2 x10(3)/[facility] Immature Gran % 0.10 % [facility] Comment: Immature granulocytes(IG's)percentage and absolute count will include metamyelocytes, myelocytes, and promyelocytes. Blood smears from CBCs yielding IG's will be scanned manually for concordance. If this scan disagrees with the automated IG or if promyelocytes are noted, a manual differential will be performed. Immature Gran Absolute 0.01 0.00 - 0.05 x10(3)/[facility] Blood specimen (specimen) 02/03/2016 5:02 AM EDT 02/03/2016 5:24 AM EDT Narrative Resulting Agency Comment Spec In Lab Que Amaro MD HEMATOLOGY ORD ERABLES [facility] [place] [address] * (ABNORMAL) Hemogram (02/03/2016 5:02 AM EDT) White Blood Cell 6.8 4.0 - 10.0 x10(3)/mc L [facility] Red Blood Cell 4.43(L) 4.63 - 6.08 x10(6)/mc L [facility] Hemoglobin 13.9 13.7 - 17.5 gm/dL [facility] Hematocrit 39.8(L) 40.0 - 51.0 % [facility] Mean Cell Volume 89.8 79.0 - 92.0 fL [facility] Mean Cell Hemoglobin 31.4 25.6 - 32.2 pg [facility] Mean Cell Hemoglobin Concentration 34.9 32.0 - 36.5 gm/dL [facility] Platelet 194 145 - 370 x10(3)/mc L [facility] RDW Standard Deviation 47.2(H) 35.0 - 46.0 fL [facility] RDW coefficient of variation 14.3 10.9 - 14.4 % [facility] Mean Platelet Volume 9.6 9.0 - 12.0 fL [facility] NRBC% auto 0.0 % [facility] NRBC Absolute 0.000 0.000 - 0.012 x10(3)/mc L [facility] Blood specimen (specimen) 02/03/2016 5:02 AM EDT 02/03/2016 5:24 AM EDT Narrative Resulting Agency Comment Spec In Lab Que Amaro MD HEMATOLOGY ORD ERABLES Performing Organization Address [facility] Co de Phone Number [facility] [place] [address] * Phosphorus (02/03/2016 5:02 AM EDT) Phosphorus 2.6 2.5 - 4.5 mg/dL [facility] Blood specimen (specimen) 02/03/2016 5:02 AM EDT 02/03/2016 5:24 AM EDT Narrative Resulting Agency Comment Spec In Lab Que Amaro MD CHEMISTRY ORDBhargav JENNINGS Performing Organization Address [facility] de Phone Number [facility] [place] [address] * (ABNORMAL) Magnesium (02/03/2016 5:02 AM EDT) Magnesium 0.54(L) 0.69 - 1.07 mmol/L [facility] Blood specimen (specimen) 02/03/2016 5:02 AM EDT 02/03/2016 5:24 AM EDT Narrative Resulting Agency Comment Spec In Lab Que Amaro MD CHEMISTRY ORDBhargav JENNINGS [facility] [place] [address] * Blood culture (02/03/2016 5:02 AM EDT) Pathologist [facility] Blood Culture No growth at 5 days. [facility] Blood specimen (specimen) PERIPHERAL BLOOD / Unknown 02/03/2016 5:02 AM EDT 02/03/2016 6:07 AM EDT Comment:R HAND Narrative Resulting Agency Comment Spec In Lab Que Amaro MD MICROBIOLOGY - BLOOD ORDERABLES Performing Organization Address [facility]/ZIP Co de Phone Number [facility] [place] [address] * (ABNORMAL) Basic Metabolic Panel (non-fasting) (02/03/2016 5:02 AM EDT) [facility] Glucose 142 65 - 199 mg/dL [facility] Comment:Diabetes: >=200 mg/d L plus symptoms Blood Urea Nitrogen 13 10 - 20 mg/dL [facility] mass. Sodium 140 135 - 145 mmol/L [facility] Potassium 3.6 3.5 - 5.0 mmol/L [facility] Comment: Please note: ??Patients with WBC >100,000 may have falsely elevated Potassium levels. ??For accurate Potassium quantification in these patients send serum separator tube (gold top) for subsequent determinations. ??Contact the Clinical Chemistry Laboratory if there are any questions. Chloride 102 98 - 107 mmol/L [facility] Carbon Dioxide 24 22 - 31 mmol/L [facility] Anion Gap 14 5 - 15 mmol/L [facility] Calcium 9.4 8.5 - 10.5 mg/dL [facility] Est Glomerular Filtration Rate 59(L) >=60 [facility] Comment: This [...] the following links into your internet browser. [email or web address] Blood specimen (specimen) 02/03/2016 5:02 AM EDT 02/03/2016 5:24 AM EDT Narrative Resulting Agency Comment Spec In Lab Que Amaro MD CHEMISTRY ORDE RABLES Performing Organization Address [facility] Co de Phone Number [facility] [place] [address] * Urine culture Nephrostomy Urine (02/02/2016 3:46 PM EDT) Pathologist [facility] Urine Culture No growth (Less than 100 cfu/ml). [facility] Urine specimen from nephrostomy tube (specimen) 02/02/2016 3:46 PM EDT 02/02/2016 4:52 PM EDT Narrative Resulting Agency Comment Spec In Lab Que Amaro MD MICROBIOLOGY - GENERAL ORDERABLES Performing Organization Address [facility] Co de Phone Number [facility] [place] [address] * Differential, Automated (02/02/2016 8:09 AM EDT) Neutrophil % 64.2 % [facility] Neutrophil Absolute 4.23 1.50 - 6.30 x10(3)/[facility] Lymph % 21.4 % [facility] Lymphocytes Abs 1.4 1.0 - 3.6 x10(3)/[facility] Monocyte % 7.1 % [facility] Monocyte Abs 0.5 0.2 - 1.0 x10(3)/[facility] Eos % 5.8 % [facility] Eosinophils Abs 0.4 0.0 - 0.5 x10(3)/[facility] Basophil % 1.2 % [facility] Baso Absolute 0.1 0.0 - 0.2 x10(3)/[facility] Immature Gran % 0.30 % [facility] Comment: Immature granulocytes(IG's)percentage and absolute count will include metamyelocytes, myelocytes, and promyelocytes. Blood smears from CBCs yielding IG's will be scanned manually for concordance. If this scan disagrees with the automated IG or if promyelocytes are noted, a manual differential will be performed. Immature Gran Absolute 0.02 0.00 - 0.05 x10(3)/[facility] Blood specimen (specimen) 02/02/2016 8:09 AM EDT 02/02/2016 8:28 AM EDT Narrative Resulting Agency Comment Spec In Lab Que Amaro MD HEMATOLOGY ORD ERABLES [facility] [place] [address] * (ABNORMAL) Hemogram (02/02/2016 8:09 AM EDT) White Blood Cell 6.6 4.0 - 10.0 x10(3)/mc L [facility] Red Blood Cell 4.66 4.63 - 6.08 x10(6)/mc L [facility] Hemoglobin 15.2 13.7 - 17.5 gm/dL [facility] Hematocrit 42.2 40.0 - 51.0 % [facility] Mean Cell Volume 90.6 79.0 - 92.0 fL [facility] Mean Cell Hemoglobin 32.6(H) 25.6 - 32.2 pg [facility] Mean Cell Hemoglobin Concentration 36.0 32.0 - 36.5 gm/dL [facility] Platelet 202 145 - 370 x10(3)/mc L [facility] RDW Standard Deviation 47.8(H) 35.0 - 46.0 fL [facility] RDW coefficient of variation 14.5(H) 10.9 - 14.4 % [facility] Mean Platelet Volume 9.4 9.0 - 12.0 fL [facility] NRBC% auto 0.0 % [facility] NRBC Absolute 0.000 0.000 - 0.012 x10(3)/mc L [facility] Blood specimen (specimen) 02/02/2016 8:09 AM EDT 02/02/2016 8:28 AM EDT Narrative Resulting Agency Comment Spec In Lab Que Amaro MD HEMATOLOGY ORD ERABLES Performing Organization Address City/[facility]/ZIP Co de Phone Number [facility] [place] [address] * Phosphorus (02/02/2016 4:43 AM EDT) Phosphorus 2.8 2.5 - 4.5 mg/dL [facility] Blood specimen (specimen) 02/02/2016 4:43 AM EDT 02/02/2016 4:56 AM EDT Narrative Resulting Agency Comment Spec In Lab Que Amaro MD CHEMISTRY ORDBhargav JENNINGS Performing Organization Address City/[facility]/ZIP Co de Phone Number [facility] [place] [address] * (ABNORMAL) Magnesium (02/02/2016 4:43 AM EDT) Magnesium 0.62(L) 0.69 - 1.07 mmol/L [facility] Blood specimen (specimen) 02/02/2016 4:43 AM EDT 02/02/2016 4:56 AM EDT Narrative Resulting Agency Comment Spec In Lab Que Amaro MD CHEMISTRY ORDE RABLES Performing Organization Address [facility]/ZIP Co de Phone Number [facility] [place] [address] * Blood culture (02/02/2016 4:43 AM EDT) Blood Culture No growth at 5 days. [facility] Blood specimen (specimen) 02/02/2016 4:43 AM EDT 02/02/2016 9:01 AM EDT Comment:RH Narrative Resulting Agency Comment Spec In Lab Que Amaro MD MICROBIOLOGY - BLOOD ORDERABLES Performing Organization Address [facility] Co de Phone Number [facility] [place] [address] * (ABNORMAL) Basic Metabolic Panel (non-fasting) (02/02/2016 4:43 AM EDT) Pathologist [facility] Glucose 138 65 - 199 mg/dL [facility] Comment:Diabetes: >=200 mg/d L plus symptoms Blood Urea Nitrogen 13 10 - 20 mg/dL [facility] Creatinine 1.38 0.80 - 1.50 mg/dL [facility] Comment: Please note that the pediatric reference intervals supplied above were not validated at [facility]. Results from pediatric patients should be interpreted in conjunction to the patient's age, height and muscle mass. Sodium 140 135 - 145 mmol/L [facility] [...] questions. Chloride 102 98 - 107 mmol/L [facility] Carbon Dioxide 26 22 - 31 mmol/L [facility] Anion Gap 12 5 - 15 mmol/L [facility] Calcium 9.2 8.5 - 10.5 mg/dL [facility] Est Glomerular Filtration Rate 51(L) >=60 [facility] Comment: This [...] the following links into your internet browser. [email or web address] Blood specimen (specimen) 02/02/2016 4:43 AM EDT 02/02/2016 4:56 AM EDT Narrative Resulting Agency Comment Spec In Lab Que Amaro MD CHEMISTRY ROCHELLE JENNINGS Performing Organization Address [facility] Co de Phone Number [facility] [place] [address] * Vancomycin, trough (02/01/2016 10:32 PM EDT) Vancomycin, Trough 9.6 mg/L [facility] Comment: Therapeutic range for complicated [...] ORDERAB LES Performing Organization Address [facility] Co de Phone Number [facility] [place] [address] * IR all procedures (02/01/2016 11:37 AM [...] was prepped and draped in supine position. Database Security Administrator image obtained. ??7 cc 1% lidocaine SQ [...] * Tacrolimus level (02/01/2016 8:16 AM EDT) Pathologist [facility] Tacrolimus 5.8 ng/mL [facility] Comment: Trough therapeutic: ??5-15 ng/mL Performed by ultra-performance liquid chromatography tandem mass spectrometry (UPLCMS/MS). Blood specimen (specimen) 02/01/2016 8:16 AM EDT 02/01/2016 11:00 AM EDT Narrative Resulting Agency Comment Spec In Lab Que Amaro MD CHEMISTRY ROCHELLE JENNINGS [facility] [place] [id number] * Differential, Automated (02/01/2016 5:35 AM EDT) Pathologist [facility] Neutrophil % 59.3 % [facility] Neutrophil Absolute 4.05 1.50 - 6.30 x10(3)/[facility] Lymph % 22.3 % [facility] Lymphocytes Abs 1.5 1.0 - 3.6 x10(3)/[facility] Monocyte % 11.7 % [facility] Monocyte Abs 0.8 0.2 - 1.0 x10(3)/[facility] Eos % 5.0 % [facility] Eosinophils Abs 0.3 0.0 - 0.5 x10(3)/[facility] Basophil % 1.3 % [facility] Baso Absolute 0.1 0.0 - 0.2 x10(3)/[facility] Immature Gran % 0.40 % [facility] Comment: Immature granulocytes(IG's)percentage and absolute count will include metamyelocytes, myelocytes, and promyelocytes. Blood smears from CBCs yielding IG's will be scanned manually for concordance. If this scan disagrees with the automated IG or if promyelocytes are noted, a manual differential will be performed. Immature Gran Absolute 0.03 0.00 - 0.05 x10(3)/[facility] Blood specimen (specimen) 02/01/2016 5:35 AM EDT 02/01/2016 6:03 AM EDT Narrative Resulting Agency Comment Spec In Lab Que Amaro MD HEMATOLOGY ORD ERABLES [facility] [place] [address] * (ABNORMAL) Hemogram (02/01/2016 5:35 AM EDT) White Blood Cell 6.8 4.0 - 10.0 x10(3)/mc L [facility] Red Blood Cell 4.52(L) 4.63 - 6.08 x10(6)/mc L [facility] Hemoglobin 14.3 13.7 - 17.5 gm/dL [facility] Hematocrit 41.3 40.0 - 51.0 % [facility] Mean Cell Volume 91.4 79.0 - 92.0 fL [facility] Mean Cell Hemoglobin 31.6 25.6 - 32.2 pg [facility] Mean Cell Hemoglobin Concentration 34.6 32.0 - 36.5 gm/dL [facility] Platelet 161 145 - 370 x10(3)/mc L [facility] RDW Standard Deviation 48.5(H) 35.0 - 46.0 fL [facility] RDW coefficient of variation 14.5(H) 10.9 - 14.4 % [facility] Mean Platelet Volume 9.7 9.0 - 12.0 fL [facility] NRBC% auto 0.0 % [facility] NRBC Absolute 0.000 0.000 - 0.012 x10(3)/mc L [facility] Blood specimen (specimen) 02/01/2016 5:35 AM EDT 02/01/2016 6:03 AM EDT Narrative Resulting Agency Comment Spec In Lab Que Amaro MD HEMATOLOGY ORD ERABLES [facility] [address] [place] [address] * (ABNORMAL) Blood culture (02/01/2016 5:35 AM EDT) Blood Culture Coagulase negative Staphylococcus species isolated Isolate saved. If future testing is required, contact the Microbiology Leaf Sorter. (A) [facility] Gram Stain Aerobic Growth detected in aerobic bottle. Gram Positive Cocci in clusters seen (A) [facility] Organism Coagulase negative Staphylococcus species(A) [facility] Organism Gram Positive Cocci in clusters(A) [facility] Blood specimen (specimen) STRUCTURE [...] Sensitive Comment:Gentamicin i s not appropriate for [place]-therapy. Coagulase Negative Staphylococcus species Levofloxacin MICROSCAN METHOD Sensitive Coagulase Negative Staphylococcus species Oxacillin MICROSCAN METHOD Resistant Coagulase Negative Staphylococcus species Penicillin MICROSCAN METHOD Resistant Coagulase Negative Staphylococcus species Tetracycline MICROSCAN METHOD Sensitive Coagulase Negative Staphylococcus species Trimethoprim/Sulfa MICROSCAN METHOD Sensitive Coagulase Negative Staphylococcus species Vancomycin MICROSCAN METHOD Sensitive Que Amaro MD MICROBIOLOGY - BLOOD ORDERABLES [facility] [place] [address] * (ABNORMAL) Basic Metabolic Panel (non-fasting) (02/01/2016 5:35 AM EDT) Glucose 138 65 - 199 mg/dL [facility] Comment:Diabetes: >=200 mg/d L plus symptoms Blood Urea Nitrogen 9(L) 10 - 20 mg/dL [facility] Creatinine 1.42 0.80 - 1.50 mg/dL [facility] Comment: Please note that the pediatric reference intervals supplied above were not validated at [facility]. Results from pediatric patients should be interpreted in conjunction to the patient's age, height and muscle mass. Sodium 142 135 - 145 mmol/L [facility] Potassium 3.6 3.5 - 5.0 mmol/L [facility] Anion Gap 13 5 - 15 mmol/L [facility] Calcium 9.0 8.5 - 10.5 mg/dL [facility] Est Glomerular Filtration Rate 50(L) >=60 [facility] Comment: This [...] the following links into your internet browser. [email or web address] Blood specimen (specimen) 02/01/2016 5:35 AM EDT 02/01/2016 6:03 AM EDT Narrative Resulting Agency Comment Spec In Lab Que Amaro MD CHEMISTRY ORDBhargav JENNINGS Performing Organization Address City/[facility] Co de Phone Number [facility] [place] [address] * Phosphorus (02/01/2016 5:35 AM EDT) Phosphorus 2.7 2.5 - 4.5 mg/dL [facility] Blood specimen (specimen) 02/01/2016 5:35 AM EDT 02/01/2016 6:03 AM EDT Narrative Resulting Agency Comment Spec In Lab Que Amaro MD CHEMISTRY ORDBhargav JENNINGS Performing Organization Address [facility] Co de Phone Number [facility] [place] [address] * Magnesium (02/01/2016 5:35 AM EDT) Magnesium 0.70 0.69 - 1.07 mmol/L [facility] Blood specimen (specimen) 02/01/2016 5:35 AM EDT 02/01/2016 6:03 AM EDT Narrative Resulting Agency Comment Spec In Lab Que Amaro MD CHEMISTRY ORDBhargav JENNINGS Performing Organization Address [facility] Co de Phone Number [facility] [place] [address] * Hepatic Function Panel (02/01/2016 5:35 AM EDT) Protein, Total 6.8 6.1 - 8.0 gm/dL [facility] Albumin 3.6 3.2 - 5.2 gm/dL [facility] Aspartate Aminotransferase 18 0 - 39 unit/L [facility] Alanine Aminotransferase 14 0 - 55 unit/L [facility] Alkaline Phosphatase 52 40 - 120 unit/L [facility] Bilirubin, Total 1.3 0.2 - 1.3 mg/dL [facility] Bilirubin, Direct 0.2 0.0 - 0.3 mg/dL [facility] Blood specimen (specimen) 02/01/2016 5:35 AM EDT 02/01/2016 6:03 AM EDT Narrative Resulting Agency Comment Spec In Lab Que Amaro MD CHEMISTRY ORDBhargav JENNINGS Performing Organization Address [facility] de Phone Number [facility] [place] [address] * APTT (02/01/2016 5:35 AM EDT) Partial Thromboplastin Time 29 25 - 35 sec [facility] Comment: The recommended therapeutic range for full dose, unfractionated heparin at [facility] is 80 ? 114 seconds. The use of the anti-Xa (heparin) level rather than the PTT is recommended for monitoring anticoagulation intensity in critically ill patients receiving unfractionated heparin by continuous IV infusion. Blood specimen (specimen) 02/01/2016 5:35 AM EDT 02/01/2016 6:03 AM EDT Narrative Resulting Agency Comment Spec In Lab Que Amaro MD HEMATOLOGY ORD ERABLES Performing Organization Address [facility] Co de Phone Number [facility] [place] [address] * Prothrombin Time (02/01/2016 5:35 AM EDT) Prothrombin Time 13.5 12.0 - 15.0 sec [facility] Comment: An INR <2.0 [...] International Normalization Ratio 1.0 0.9 - 1.1 [facility] Blood specimen (specimen) 02/01/2016 5:35 AM EDT 02/01/2016 6:03 AM EDT Narrative Resulting Agency Comment Spec In Lab Que Amaro MD HEMATOLOGY ORD ERABLES Performing Organization Address [facility] [facility] Co de Phone Number [facility] [place] [address] * Blood culture (01/31/2016 12:28 AM EDT) Blood Culture No growth at 5 days. [facility] Blood specimen (specimen) STRUCTURE OF RIGHT FOREARM / Unknown 01/31/2016 12:28 AM EDT 01/31/2016 3:02 AM EDT Narrative Resulting Agency Comment Spec In Lab Que Amaro MD MICROBIOLOGY - BLOOD ORDERABLES Performing Organization Address [facility] Co de Phone Number [facility] [place] [address] * BK Quant Blood Result (01/31/2016 12:12 [...] DNA isolated from plasma was performed using Bamb[employer] BKV (ASR) reagents and the Applied Oxonica 7500 FAST Real-Time PCR System. In addition, the ??PCR product sequence is confirmed using physical properties (melting curve analysis). This test was developed and its performance determined by the [facility]ology [facility]. It has not been [...] [facility] Comment: [VERIFIED DATE]02.11.16 Verified By:Nella Evans (Electronic Signature) Blood specimen (specimen) 01/31/2016 12:12 AM EDT 01/31/2016 9:34 AM EDT Narrative Resulting Agency Comment Spec In Lab Que Amaro MD HEMATOLOGY ORD ERABLES Performing Organization Address [facility] Co de Phone Number [facility] [place] [address] * Antibody screen (01/31/2016 12:12 AM EDT) Ab Screen Interp Negative [facility] Expires at [id number] on: 02/03/2016 [facility] Blood specimen (specimen) 01/31/2016 12:12 AM EDT 01/31/2016 12:45 AM EDT Narrative Resulting Agency Comment Spec In Lab Que Amaro MD BLOOD BANK LAB ORDERABLES Performing Organization Address City/[facility] Co de Phone Number [facility] [place] [address] * ABO/Rh Typing (01/31/2016 12:12 AM EDT) ABORH Type AB Pos [facility] Blood specimen (specimen) 01/31/2016 12:12 AM EDT 01/31/2016 12:45 AM EDT Narrative Resulting Agency Comment Spec In Lab Que Amaro MD BLOOD BANK LAB ORDERABLES Performing Organization Address [facility]/ZIP Co de Phone Number [facility] [place] [address] * Differential, Automated (01/31/2016 12:12 AM EDT) Pathologist [facility] Neutrophil % 70.8 % [facility] Neutrophil Absolute 4.50 1.50 - 6.30 x10(3)/[facility] Lymph % 15.9 % [facility] Lymphocytes Abs 1.0 1.0 - 3.6 x10(3)/[facility] Monocyte % 10.8 % [facility] Monocyte Abs 0.7 0.2 - 1.0 x10(3)/[facility] Eos % 1.4 % [facility] Eosinophils Abs 0.1 0.0 - 0.5 x10(3)/[facility] Basophil % 0.6 % [facility] Baso Absolute 0.0 0.0 - 0.2 x10(3)/[facility] Immature Gran % 0.50 % [facility] Comment: Immature granulocytes(IG's)percentage and absolute count will include metamyelocytes, myelocytes, and promyelocytes. Blood smears from CBCs yielding IG's will be scanned manually for concordance. If this scan disagrees with the automated IG or if promyelocytes are noted, a manual differential will be performed. Immature Gran Absolute 0.03 0.00 - 0.05 x10(3)/[facility] Blood specimen (specimen) 01/31/2016 12:12 AM EDT 01/31/2016 12:37 AM EDT Narrative Resulting Agency Comment Spec In Lab Que Amaro MD HEMATOLOGY ORD ERABLES [facility] [place] [address] * (ABNORMAL) Hemogram (01/31/2016 12:12 AM EDT) Pathologist [facility] White Blood Cell 6.4 4.0 - 10.0 x10(3)/[facility] LABORATORY Red Blood Cell 4.34(L) 4.63 - 6.08 x10(6)/[facility] Hemoglobin 14.1 13.7 - 17.5 gm/dL [facility] Hematocrit 39.8(L) 40.0 - 51.0 % [facility] Mean Cell Volume 91.7 79.0 - 92.0 fL [facility] Mean Cell Hemoglobin 32.5(H) 25.6 - 32.2 pg [facility] Mean Cell Hemoglobin Concentration 35.4 32.0 - 36.5 gm/dL [facility] Platelet 140(L) 145 - 370 x10(3)/[facility] LABORATORY RDW Standard Deviation 48.9(H) 35.0 - 46.0 fL [facility] RDW coefficient of variation 14.3 10.9 - 14.4 % [facility] Mean Platelet Volume 10.0 9.0 - 12.0 fL [facility] NRBC% auto 0.0 % [facility] NRBC Absolute 0.000 0.000 - 0.012 x10(3)/[facility] Blood specimen (specimen) 01/31/2016 12:12 AM EDT 01/31/2016 12:37 AM EDT Narrative Resulting Agency Comment Spec In Lab Que Amaro MD HEMATOLOGY ORD ERABLES [facility] [place] [address] * Blood culture (01/31/2016 12:12 AM EDT) Blood Culture No growth at 5 days. [facility] Blood specimen (specimen) RIGHT ELBOW REGION STRUCTURE / Unknown 01/31/2016 12:12 AM EDT 01/31/2016 3:01 AM EDT Narrative Resulting Agency Comment Spec In Lab Que Amaro MD MICROBIOLOGY - BLOOD ORDERABLES Performing Organization Address [facility] Co de Phone Number [facility] [place] [address] * (ABNORMAL) Hepatic Function Panel (01/31/2016 12:12 AM EDT) [facility] Protein, Total 6.6 6.1 - 8.0 gm/dL [facility] Albumin 3.6 3.2 - 5.2 gm/dL [facility] Aspartate Aminotransferase 20 0 - 39 unit/L [facility] Alanine Aminotransferase 15 0 - 55 unit/L [facility] Alkaline Phosphatase 59 40 - 120 unit/L [facility] Bilirubin, Total 1.4(H) 0.2 - 1.3 mg/dL [facility] Bilirubin, Direct 0.3 0.0 - 0.3 mg/dL [facility] Blood specimen (specimen) 01/31/2016 12:12 AM EDT 01/31/2016 12:37 AM EDT Narrative Resulting Agency Comment Spec In Lab Que Amaro MD CHEMISTRY ORDE DICK Performing Organization Address [facility] Co de Phone Number [facility] [place] [address] * (ABNORMAL) Phosphorus (01/31/2016 12:12 AM EDT) [facility] Phosphorus 2.2(L) 2.5 - 4.5 mg/dL [facility] Blood specimen (specimen) 01/31/2016 12:12 AM EDT 01/31/2016 12:37 AM EDT Narrative Resulting Agency Comment Spec In Lab Que Amaro MD CHEMISTRY ORDE DICK Performing Organization Address City/[facility]/ZIP Co de Phone Number [facility] [place] [address] * (ABNORMAL) Magnesium (01/31/2016 12:12 AM EDT) Magnesium 0.65(L) 0.69 - 1.07 mmol/L [facility] Blood specimen (specimen) 01/31/2016 12:12 AM EDT 01/31/2016 12:37 AM EDT Narrative Resulting Agency Comment Spec In Lab Que Amaro MD CHEMISTRY ROCHELLE JENNINGS [facility] [place] [address] * (ABNORMAL) Basic Metabolic Panel (non-fasting) (01/31/2016 12:12 AM EDT) Glucose 189 65 - 199 mg/dL [facility] Comment:Diabetes: >=200 mg/d L plus symptoms Blood Urea Nitrogen 14 10 - 20 mg/dL [facility] Creatinine 1.55(H) 0.80 - 1.50 mg/dL [facility] Comment: Please note that the pediatric reference intervals supplied above were not validated at [facility]. Results from pediatric patients should be interpreted in conjunction to the patient's age, height and muscle mass. Sodium 136 135 - 145 mmol/L [facility] [...] questions. Chloride 99 98 - 107 mmol/L [facility] Carbon Dioxide 23 22 - 31 mmol/L [facility] Anion Gap 14 5 - 15 mmol/L [facility] Calcium 8.6 8.5 - 10.5 mg/dL [facility] Est Glomerular Filtration Rate 45(L) >=60 [facility] Comment: This [...] the following links into your internet browser. [email or web address] Blood specimen (specimen) 01/31/2016 12:12 AM EDT 01/31/2016 12:37 AM EDT Narrative Resulting Agency Comment Spec In Lab Que Amaro MD CHEMISTRY ORDE DICK Performing Organization Address [facility] de Phone Number [facility] [place] [address] * APTT (01/31/2016 12:12 AM EDT) Partial Thromboplastin Time 30 25 - 35 sec [facility] Comment: The recommended therapeutic range for full dose, unfractionated heparin at [facility] is 80 ? 114 seconds. The use of the anti-Xa (heparin) level rather than the PTT is recommended for monitoring anticoagulation intensity in critically ill patients receiving unfractionated heparin by continuous IV infusion. Blood specimen (specimen) 01/31/2016 12:12 AM EDT 01/31/2016 12:37 AM EDT Narrative Resulting Agency Comment Spec In Lab Que Amaro MD HEMATOLOGY ORD ERABLES Performing Organization Address [facility] de Phone Number [facility] [place] [address] * Prothrombin Time (01/31/2016 12:12 AM EDT) Prothrombin Time 13.8 12.0 - 15.0 sec [facility] Comment: An INR <2.0 [...] International Normalization Ratio 1.0 0.9 - 1.1 [facility] Blood specimen (specimen) 01/31/2016 12:12 AM EDT 01/31/2016 12:37 AM EDT Narrative Resulting Agency Comment Spec In Lab Que Amaro MD HEMATOLOGY ORD ERABLES [facility] [place] [address] * (ABNORMAL) Urinalysis with reflex Culture (01/31/2016 12:04 AM EDT) Glucose, Urine Dipstick 50(A) Negative mg/dL [facility] Protein, Urine Dipstick Negative Negative mg/dL [facility] Blood, Urine Dipstick Small(A) Negative mg/dL [facility] Ketone, Urine Dipstick Negative Negative mg/dL [facility] Nitrite, Urine Dipstick Negative Negative [facility] Leukocytes, Urine Dipstick Negative Negative [facility] Appearance, Urine Dipstick Clear Clear [facility] Specific Merkel Urine Automated 1.010 1.002 - 1.030 [facility] Color, Urine Dipstick Straw Yellow [facility] RBC, Urine 7(H) 0 - 3 /HPF [facility] WBC, Urine 2 0 - 3 /HPF [facility] Reflex to Culture No [facility] Urine specimen from nephrostomy tube (specimen) 01/31/2016 12:04 AM EDT 01/31/2016 12:36 AM EDT Narrative Resulting Agency Comment Spec In Lab Que Amaro MD URINE ORDERABL ES [facility] [place] [address] * (ABNORMAL) Urinalysis with reflex Culture (01/31/2016 12:03 AM EDT) Glucose, Urine Dipstick 50(A) Negative mg/dL [facility] Leukocytes, Urine Dipstick Trace(A) Negative [facility] Appearance, Urine Dipstick Clear Clear [facility] Specific Merkel Urine Automated 1.011 1.002 - 1.030 [facility] Color, Urine Dipstick Straw Yellow [facility] RBC, Urine 3 0 - 3 /HPF [facility] WBC, Urine 2 0 - 3 /HPF [facility] Squamous Epithelial Cells, Urine <1 <=4 /HPF [facility] Reflex to Culture Dup Culture [facility] Urine specimen obtained by clean catch procedure (specimen) 01/31/2016 12:03 AM EDT 01/31/2016 12:36 AM EDT Narrative Resulting Agency Comment Spec In Lab Que Amaro MD URINE ORDERABL ES [facility] [place] [address] * XR Chest PA & Lateral (Generic) [...] AM EDT) CMV Quant (Numeric) <137 IU/mL [facility] CMV Quant (Interp) Result: Not Detected Sample: plasma Method: This quantitative real-time PCR assay was performed in the [facility] Molecular Pathology [facility] using ??NIK?? AmpliPrep/NIK? ? TaqMan?? CMV Test ([employer] Linear Range: 137 IU/mL - 9,100,000 IU/mL (2.14 log ? 6.96 log IU/mL) Limit of Detection: 91 IU/mL (1.96 log IU/mL) [facility] Blood specimen (specimen) 01/30/2016 10:43 AM EDT 02/01/2016 3:06 PM EDT Narrative Resulting Agency Comment Spec In Lab Que JENNINGS [facility] [place] [address] * (ABNORMAL) Differential, Automated (01/30/2016 7:42 AM EDT) Neutrophil % 76.1 % [facility] Neutrophil Absolute 5.24 1.50 - 6.30 x10(3)/mc L [facility] Lymph % 11.3 % [facility] Lymphocytes Abs 0.8(L) 1.0 - 3.6 x10(3)/mc L [facility] Monocyte % 11.3 % [facility] Monocyte Abs 0.8 0.2 - 1.0 x10(3)/mc L [facility] Eos % 0.4 % [facility] Eosinophils Abs 0.0 0.0 - 0.5 x10(3)/mc L [facility] Basophil % 0.6 % [facility] Baso Absolute 0.0 0.0 - 0.2 x10(3)/mc L [facility] Immature Gran % 0.30 % WHITE [...] Absolute 0.02 0.00 - 0.05 x10(3)/mc L [facility] Blood specimen (specimen) 01/30/2016 7:42 AM EDT 01/30/2016 7:53 AM EDT Narrative Resulting Agency Comment Spec In Lab Madhu Eagle MD HEMATOLOGY ORDERA BLES [facility] [place] [address] * (ABNORMAL) Hemogram (01/30/2016 7:42 AM EDT) White Blood Cell 6.9 4.0 - 10.0 x10(3)/mc L [facility] Red Blood Cell 4.48(L) 4.63 - 6.08 x10(6)/mc L [facility] Hemoglobin 13.9 13.7 - 17.5 gm/dL [facility] Hematocrit 40.6 40.0 - 51.0 % [facility] Mean Cell Volume 90.6 79.0 - 92.0 fL [facility] Mean Cell Hemoglobin 31.0 25.6 - 32.2 pg [facility] Mean Cell Hemoglobin Concentration 34.2 32.0 - 36.5 gm/dL [facility] Platelet 145 145 - 370 x10(3)/mc L [facility] RDW Standard Deviation 48.1(H) 35.0 - 46.0 fL [facility] RDW coefficient of variation 14.6(H) 10.9 - 14.4 % [facility] Mean Platelet Volume 9.1 9.0 - 12.0 fL [facility] NRBC% auto 0.0 % [facility] NRBC Absolute 0.000 0.000 - 0.012 x10(3)/mc L [facility] Blood specimen (specimen) 01/30/2016 7:42 AM EDT 01/30/2016 7:53 AM EDT Narrative Resulting Agency Comment Spec In Lab Madhu Eagle MD HEMATOLOGY ORDERA BLES [facility] [place] [address] * (ABNORMAL) Phosphorus (01/30/2016 7:42 AM EDT) [facility] Phosphorus 2.3(L) 2.5 - 4.5 mg/dL [facility] Blood specimen (specimen) 01/30/2016 7:42 AM EDT 01/30/2016 7:53 AM EDT Narrative Resulting Agency Comment Spec In Lab Madhu Eagle MD CHEMISTRY ORDERAB LES Performing Organization Address [facility] Co de Phone Number [facility] [place] [address] * (ABNORMAL) Magnesium (01/30/2016 7:42 AM EDT) [facility] Magnesium 0.63(L) 0.69 - 1.07 mmol/L [facility] Blood specimen (specimen) 01/30/2016 7:42 AM EDT 01/30/2016 7:53 AM EDT Narrative Resulting Agency Comment Spec In Lab Madhu Eagle MD CHEMISTRY ORDERAB LES Performing Organization Address [facility] de Phone Number [facility] [place] [address] * (ABNORMAL) Basic Metabolic Panel (non-fasting) (01/30/2016 7:42 AM EDT) [facility] Glucose 163 65 - 199 mg/dL [facility] Comment:Diabetes: >=200 mg/d L plus symptoms Blood Urea Nitrogen 17 10 - 20 mg/dL [facility] Creatinine 1.67(H) 0.80 - 1.50 mg/dL [facility] Comment: Please note that the pediatric reference intervals supplied above were not validated at [facility]. Results from pediatric patients should be interpreted in conjunction to the patient's age, height and muscle mass. Sodium 137 135 - 145 mmol/L [facility] [...] questions. Chloride 99 98 - 107 mmol/L [facility] Carbon Dioxide 24 22 - 31 mmol/L [facility] Anion Gap 14 5 - 15 mmol/L [facility] Calcium 8.8 8.5 - 10.5 mg/dL [facility] Est Glomerular Filtration Rate 41(L) >=60 [facility] Comment: This [...] the following links into your internet browser. [email or web address] Blood specimen (specimen) 01/30/2016 7:42 AM EDT 01/30/2016 7:53 AM EDT Narrative Resulting Agency Comment Spec In Lab Madhu Eagle MD CHEMISTRY ORDERAB LES [facility] [place] [address] * Tacrolimus level (01/30/2016 7:42 AM EDT) Tacrolimus 6.2 ng/mL [facility] Comment: Trough therapeutic: ??5-15 ng/mL Performed by ultra-performance liquid chromatography tandem mass spectrometry (UPLCMS/MS). Blood specimen (specimen) 01/30/2016 7:42 AM EDT 01/30/2016 10:54 AM EDT Narrative Resulting Agency Comment Spec In Lab Madhu Eagle MD CHEMISTRY ORDERAB LES Performing Organization Address [facility] Co de Phone Number [facility] [place] [address] * (ABNORMAL) Urine culture Nephrostomy Urine (01/30/2016 1:21 AM EDT) Urine Culture Less than 1,000 cfu/mL Coagulase negative Staphylococcus species Susceptibility testing not routinely performed for Coagulase Negative Staphylococcus species and other Gram Positive organisms from urine. (A) [facility] Urine specimen from nephrostomy tube (specimen) 01/30/2016 1:21 AM EDT 01/30/2016 7:44 AM EDT Narrative Resulting Agency Comment Spec In Lab Que Amaro MD MICROBIOLOGY - GENERAL ORDERABLES Performing Organization Address [facility] Co de Phone Number [facility] [place] [address] * (ABNORMAL) Urinalysis with reflex Culture (01/30/2016 1:20 AM EDT) Glucose, Urine Dipstick Negative Negative mg/dL [facility] Protein, Urine Dipstick Negative Negative mg/dL [facility] Leukocytes, Urine Dipstick Trace(A) Negative [facility] Appearance, Urine Dipstick Clear Clear [facility] Specific Merkel Urine Automated 1.004 1.002 - 1.030 [facility] Color, Urine Dipstick Colorless Yellow [facility] RBC, Urine Not Present 0 - 3 /HPF [facility] WBC, Urine 1 0 - 3 /HPF [facility] Bacteria, Urine Rare(A) None /HPF [facility] Reflex to Culture Dup Culture [facility] Urine specimen from nephrostomy tube (specimen) 01/30/2016 1:20 AM EDT 01/30/2016 1:41 AM EDT Narrative Resulting Agency Comment Spec In Lab Que Amaro MD URINE ORDERABL ES [facility] [place] [id number] * (ABNORMAL) Blood culture (01/30/2016 12:20 AM EDT) Blood Culture Coagulase negative Staphylococcus species isolated Isolate saved. If future testing is required, contact the Microbiology Leaf Sorter. (A) [facility] Gram Stain Aerobic Growth detected in aerobic bottle. Gram Positive Cocci in clusters seen Results called to and read back by Dr. Yessica De La Vega. (A) [facility] Organism Coagulase negative Staphylococcus species(A) [facility] Organism Gram Positive Cocci in clusters(A) [facility] Blood specimen (specimen) 01/30/2016 12:20 AM [...] Resistant Comment:Gentamicin i s not appropriate for [place]-therapy. Coagulase Negative Staphylococcus species Levofloxacin MICROSCAN METHOD Resistant Coagulase Negative Staphylococcus species Oxacillin MICROSCAN METHOD Resistant Coagulase Negative Staphylococcus species Penicillin MICROSCAN METHOD Resistant Coagulase Negative Staphylococcus species Tetracycline MICROSCAN METHOD Sensitive Coagulase Negative Staphylococcus species Trimethoprim/Sulfa MICROSCAN METHOD Resistant Coagulase Negative Staphylococcus species Vancomycin MICROSCAN METHOD Sensitive Madhu Eagle MD MICROBIOLOGY - BL OOD ORDERABLES Performing Organization Address City/[facility]/ZIP Co de Phone Number [facility] [place] [address] * (ABNORMAL) Hepatic Function Panel (01/29/2016 11:37 PM EDT) [facility] Protein, Total 7.3 6.1 - 8.0 gm/dL [facility] Albumin 4.0 3.2 - 5.2 gm/dL [facility] Aspartate Aminotransferase 20 0 - 39 unit/L [facility] Alanine Aminotransferase 16 0 - 55 unit/L [facility] Alkaline Phosphatase 60 40 - 120 unit/L [facility] [facility] Bilirubin, Total 2.0(H) 0.2 - 1.3 mg/dL [facility] [facility] [place]/ZIP Co de Phone Number [facility] [place] [address] * (ABNORMAL) Differential, Automated (01/29/2016 11:37 PM EDT) [facility] Neutrophil % 80.0 % [facility] Neutrophil Absolute 6.02 1.50 - 6.30 x10(3)/mc L [facility] Lymph % 9.3 % [facility] Lymphocytes Abs 0.7(L) 1.0 - 3.6 x10(3)/[facility] Monocyte % 9.2 % [facility] Monocyte Abs 0.7 0.2 - 1.0 x10(3)/[facility] Eos % 0.3 % [facility] Eosinophils Abs 0.0 0.0 - 0.5 x10(3)/[facility] Basophil % 0.8 % [facility] Baso Absolute 0.1 0.0 - 0.2 x10(3)/[facility] Immature Gran % 0.40 % [facility] Comment: Immature granulocytes(IG's)percentage and absolute count will include metamyelocytes, myelocytes, and promyelocytes. Blood smears from CBCs yielding IG's will be scanned manually for concordance. If this scan disagrees with the automated IG or if promyelocytes are noted, a manual differential will be performed. Immature Gran Absolute 0.03 0.00 - 0.05 x10(3)/[facility] Blood specimen (specimen) 01/29/2016 11:37 PM EDT 01/29/2016 11:55 PM EDT Narrative Resulting Agency Comment Spec In Lab Madhu Eagle MD HEMATOLOGY ORDERA BLES [facility] [place] [address] * (ABNORMAL) Hemogram (01/29/2016 11:37 PM EDT) White Blood Cell 7.5 4.0 - 10.0 x10(3)/[facility] Red Blood Cell 4.66 4.63 - 6.08 x10(6)/[facility] Hemoglobin 14.4 13.7 - 17.5 gm/dL [facility] Hematocrit 41.6 40.0 - 51.0 % [facility] Mean Cell Volume 89.3 79.0 - 92.0 fL [facility] Mean Cell Hemoglobin 30.9 25.6 - 32.2 pg [facility] Mean Cell Hemoglobin Concentration 34.6 32.0 - 36.5 gm/dL [facility] Platelet 173 145 - 370 x10(3)/mc L [facility] RDW Standard Deviation 47.3(H) 35.0 - 46.0 fL [facility] RDW coefficient of variation 14.6(H) 10.9 - 14.4 % [facility] Mean Platelet Volume 9.8 9.0 - 12.0 fL [facility] NRBC% auto 0.0 % [facility] NRBC Absolute 0.000 0.000 - 0.012 x10(3)/mc L [facility] Blood specimen (specimen) 01/29/2016 11:37 PM EDT 01/29/2016 11:55 PM EDT Narrative Resulting Agency Comment Spec In Lab Madhu Eagle MD HEMATOLOGY ORDERA BLES [facility] [place] [address] * (ABNORMAL) Basic Metabolic Panel (non-fasting) (01/29/2016 11:37 PM EDT) Glucose 167 65 - 199 mg/dL [facility] Comment:Diabetes: >=200 mg/d L plus symptoms Blood Urea Nitrogen 18 10 - 20 mg/dL [facility] Creatinine 1.77(H) 0.80 - 1.50 mg/dL [facility] Carbon Dioxide 23 22 - 31 mmol/L [facility] Anion Gap 16(H) 5 - 15 mmol/L [facility] Calcium 9.3 8.5 - 10.5 mg/dL [facility] Est Glomerular Filtration Rate 39(L) >=60 [facility] Comment: This [...] the following links into your internet browser. [email or web address] Blood specimen (specimen) 01/29/2016 11:37 PM EDT 01/29/2016 11:55 PM EDT Narrative Resulting Agency Comment Spec In Lab Madhu Eagle MD CHEMISTRY ORDERAB LES Performing Organization Address City/[facility] [place]/ZIP Co de Phone Number [facility] [place] [address] * (ABNORMAL) Phosphorus (01/29/2016 11:37 PM EDT) Phosphorus 2.1(L) 2.5 - 4.5 mg/dL [facility] Blood specimen (specimen) 01/29/2016 11:37 PM EDT 01/29/2016 11:55 PM EDT Narrative Resulting Agency Comment Spec In Lab Madhu Eagle MD CHEMISTRY ORDERAB LES [facility] [place] [address] * (ABNORMAL) Magnesium (01/29/2016 11:37 PM EDT) Magnesium 0.39(Criti raulito) 0.69 - 1.07 mmol/L [facility] Comment: Result rechecked. Called by: jed, Read back by: Magaly Cobian, Date/Time:01/30/16 00:33. Blood specimen (specimen) 01/29/2016 11:37 PM EDT 01/29/2016 11:55 PM EDT Narrative Resulting Agency Comment Spec In Lab Madhu Eagle MD CHEMISTRY ORDERAB LES Performing Organization Address City/[facility]/ZIP Co de Phone Number [facility] [place] [address] * (ABNORMAL) Blood culture (01/29/2016 11:35 PM EDT) Blood Culture Coagulase negative Staphylococcus species detected by PCR Isolate saved. If future testing is required, contact the Microbiology Leaf Sorter. (A) [facility] Gram Stain Aerobic Growth detected in aerobic bottle. Gram Positive Cocci in clusters seen Results called to and read back by Dr. Yessica De La Vega. (A) [facility] Organism Coagulase negative Staphylococcus species(A) [facility] Organism Gram Positive Cocci in clusters(A) [facility] Blood specimen (specimen) 01/29/2016 11:35 PM [...] Resistant Comment:Gentamicin i s not appropriate for [place]-therapy. Coagulase Negative Staphylococcus species Levofloxacin MICROSCAN METHOD Resistant Coagulase Negative Staphylococcus species Oxacillin MICROSCAN METHOD Resistant Coagulase Negative Staphylococcus species Penicillin MICROSCAN METHOD Resistant Coagulase Negative Staphylococcus species Tetracycline MICROSCAN METHOD Sensitive Coagulase Negative Staphylococcus species Trimethoprim/Sulfa MICROSCAN METHOD Resistant Coagulase Negative Staphylococcus species Vancomycin MICROSCAN METHOD Sensitive Madhu Eagle MD MICROBIOLOGY - BL OOD ORDERABLES [facility] [place] [address] * (ABNORMAL) Urinalysis with reflex Culture (01/29/2016 [...] [facility] Blood, Urine Dipstick Small(A) Negative mg/dL [facility] Ketone, Urine Dipstick Negative Negative mg/dL [facility] Nitrite, Urine Dipstick Negative Negative [facility] Leukocytes, Urine Dipstick Moderate(A) Negative [facility] Appearance, Urine Dipstick Clear Clear [facility] Specific [place] Urine Automated 1.012 1.002 - 1.030 [facility] Color, Urine Dipstick Yellow Yellow [facility] RBC, Urine 2 0 - 3 /HPF [facility] WBC, Urine 11(H) 0 - 3 /HPF [facility] Reflex to Culture Dup Culture [facility] Urine specimen obtained by clean catch procedure (specimen) 01/29/2016 11:06 PM EDT 01/29/2016 11:36 PM EDT Narrative Resulting Agency Comment Spec In Lab Madhu Eagle MD URINE ORDERABLES [facility] [place] [address] documented in this encounter Visit Diagnoses Diagnosis [...] EVERY 8 HOURS SCHEDULED, First dose on Thu02/02/16 at 1400, Until Discontinued, Routine Given 02/03/2016 [...] CONTINUOUS, Starting on 02/02/16 at 1145, Until 02/03/16 at 0724 New Bag 02/03/2016 5:16 AM EDT 100 mL/hr 100 mL/hr New Bag 02/02/2016 6:31 PM EDT 100 mL/hr [...] Indication for (Active or Suspected): Bacteremia/Sepsis Given 02/04/2016 11:10 PM EDT 1,750 m g 162.9 mL/hr Given 02/03/2016 10:46 PM EDT [...] Indication for (Active or Suspected): Bacteremia/Sepsis Given 01/30/2016 11:29 PM EDT 1,500 mg [...] Indication for (Active or Suspected): Bacteremia/Sepsis Given 02/02/2016 10:39 PM EDT 1,500 mg [...] , STAT, Indication for (Active or Suspected): Bacteremia/Sepsis Given 01/30/2016 12:30 AM EDT 2,000 mg [...] Indication for (Active or Suspected): Bacteremia/Sepsis Given 01/31/2016 10:10 PM EDT 2,000 mg documented in this encounter Active and Recently Administered Medications Times are shown in EDT. Scheduled Medication Order 02/03/2016 02/04/2016 02/05/2016 calciTRIol (ROCALTROL) capsule 0.5 mcg 0.5 mcg, Oral, DAILY, First dose on Thu01/30/16 at 0900, Until Discontinued, Routine 0851 (Given - Provider: Bernarda Pedroza RN) 0821 (Given - Provider: Bernarda Pedroza RN) 09 (Given - Provider: Brandee Akins RN) DILTiazem [...] EVERY 8 HOURS SCHEDULED, First dose on Thu02/02/16 at 1400, Until Discontinued, Routine 0549 (Given [...] Until Discontinued, Routine 0549 (Given - Provider: Tameal Mckeon RN) 0631 (Given - Provider: Anatoly [...] Bernarda Pedroza RN)1537 (Given - Provider: Bernarda Pedroza, JADEN)2018 (Given - Provider: Anatoly Chapman RN) 0904 [...] Bernarda Pedroza RN)2143 (Given - Provider: Anatoly Chapman, JADEN) 0821 (Given - Provider: Bernarda Pedroza RN)2018 (Given - Provider: Anatoly Chapman RN) 09 (Given - Provider: Brandee Akins RN) pantoprazole (PROTONIX) tablet 40 mg 40 mg, Oral, DAILY, First dose (after last modification) on Thu01/30/16 at 2000, Until Discontinued, DO NOT CRUSH OR OPEN 0851 (Given - Provider: Bernarda Pedroza RN) 08 (Given - Provider: Bernarda Pedroza RN) 09 (Given - Provider: Brandee Akins, JADEN) potassium [...] Bernarda Pedroza RN)2310 (Given - Provider: Anatoly Chapman RN) 1104 (Given - Provider: Brandee Akins RN) sulfamethoxazole-trimet hoprim (BACTRIM;SEPTRA) 400-80 mg per tablet 1 tablet 1 tablet, Oral, EVERY 24 HOURS SCHEDULED (Daily), First dose on Thu01/30/16 at 1100, Until Discontinued, Routine, Indication for (Active or Suspected): Urinary Tract/Pyelonephritis 0851 (Given - Provider: Bernarda Pedroza RN) 08 (Given - Provider: Bernarda Pedroza RN) 09 (Given - Provider: Brandee Akins, JADEN) tacrolimus (PROGRAF) capsule 1 mg 1 mg, Oral, 2 TIMES DAILY, First dose on Thu01/30/16 at 0900, Until Discontinued, Routine 08 (Given - Provider: Bernarda Pedroza RN)2142 (Given - Provider: Anatoly Chapman RN) 08 (Given - Provider: Bernarda Pedroza, JADEN)2017 (Given - Provider: Anatoly Chapman RN) 906 (Given - Provider: Brandee Akins, JADEN) tamsulosin (FLOMAX) ER capsule 0.4 mg 0.4 mg, Oral, NIGHTLY, First dose on Thu01/30/16 at 0100, Until Discontinued, DO NOT CRUSH OR OPEN, Routine 2141 (Given - Provider: Anatoly Chapman RN) 2017 (Given - Provider: Anaotly Chapman RN) valGANciclovir (VALCYTE) tablet 450 mg 450 mg, Oral, DAILY, First dose on Thu01/30/16 at 1100, Until Discontinued, Routine, Indication for (Active or Suspected): Prophylaxis 08 (Given - Provider: Bernarda Pedroza RN) 08 (Given - Provider: Bernarda Pedroza RN) 09 (Given - Provider: Brandee Akins, JADEN) vancomycin [...] Routine, Indication for (Active or Suspected): Bacteremia/Sepsis 2245 (Given - Provider: Anatoly Chapman, RN) 2310 (Given - Provider: Anatoly Chapman, JADEN) Continuous Medication Order 02/03/2016 02/04/2016 02/05/2016 sodium chloride 0.9% infusion (CANCELED) 100 mL/hr, Intravenous, CONTINUOUS, Starting on 02/02/16 at 1145, Until 02/03/16 at 0724 0516 (New Bag - Provider: Tamela Mckeon, JADEN) PRN Medication Order 02/03/2016 02/04/2016 02/05/2016 acetaminophen (TYLENOL) tablet 650 mg 650 mg, Oral, EVERY 4 HOURS PRN, Starting on Thu01/30/16 at 0005, Until Thu02/05/16 at 1427, Pain, Maximum dose of acetaminophen is 4000 mg from all sources in 24 hours., Routine 2145 (Given - Provider: Anatoly Chapman, JADEN) 2016 (Given - Provider: Anatoly Chapman, JADEN) 0907 (Given - Provider: Brandee Akins RN) ondansetron (ZOFRAN) injection 4 mg 4 mg, Intravenous, EVERY 8 HOURS PRN, Starting on Thu01/30/16 at 2019, Until Thu02/05/16 at 1427, Nausea documented in this encounter Care Teams Marketing Intern Relationship Specialty Start Date End Date Urbano Denis DO [address] [place] [address] PCP - General 09/03/12 03/17/22 Ruchi Valles RN Nurse Clinic Transplant Surgery 07/30/15 documented as of this encounter
--- OUTSIDE RECORDS SUMMARY | 2024-04-04 14:11 | XMS_ITS | Encounter Summary ---
Author Organization Formerly [facility] [address] Care Team Providers Care Relay Shop Tester Name Role Phone Urbano Denis DO Primary Care Provider Encounter Details Date Type Department Care Team (Latest Contact Info) Description 01/11/2016 9:30 AM EDT Laboratory Appointment Lab [address] [place] [address] Kidney replaced by transplant Social [...] PM EDT Office Visit Cardiology at [address] [phone] Jay Urban MD [facility] [place] [address] 04/15/2024 10:00 AM EDT Hospital Encounter [place] [address] Arrived documented as of this [...] Culture No growth (Less than 1,000 cfu/ml). [facility] Urine specimen (specimen) 01/11/2016 9:33 AM EDT 01/11/2016 10:30 AM EDT Narrative Resulting Agency Comment Spec In Lab Que Amaro MD MICROBIOLOGY - GENERAL ORDERABLES Performing Organization Address [facility] Co de Phone Number [facility] [place] [address] * (ABNORMAL) Protein/Creatinine Ratio, urine (01/11/2016 9:33 AM EDT) Creatinine, Urine 114 mg/dL [facility] Protein, Urine 33(H) 0 - 12 mg/dL [facility] Protein / Creatinine Ratio, Urine 0.3 ratio [facility] Urine specimen (specimen) 01/11/2016 9:33 AM EDT 01/11/2016 9:41 AM EDT Narrative Resulting Agency Comment Spec In Lab Que Amaro MD URINE ORDERABL ES Performing Organization Address [facility] Co de Phone Number [facility] [place] [address] * (ABNORMAL) Urinalysis with reflex Culture (01/11/2016 [...] [facility] Blood, Urine Dipstick Small(A) Negative mg/dL [facility] Ketone, Urine Dipstick Negative Negative mg/dL [facility] Nitrite, Urine Dipstick Negative Negative [facility] Leukocytes, Urine Dipstick Small(A) Negative [facility] Appearance, Urine Dipstick Clear Clear [facility] Specific [place] Urine Automated 1.015 1.002 - 1.030 [facility] Color, Urine Dipstick Yellow Yellow [facility] RBC, Urine 1 0 - 3 /HPF [facility] WBC, Urine 6(H) 0 - 3 /HPF [facility] Bacteria, Urine Rare(A) None /HPF [facility] Hyaline Casts, Urine 1 0 - 2 /LPF [facility] Reflex to Culture Yes [facility] Urine specimen (specimen) 01/11/2016 9:33 AM EDT 01/11/2016 9:41 AM EDT Narrative Resulting Agency Comment Spec In Lab Que Amaro MD URINE ORDERABL ES [facility] [place] [address] * BK Quant Blood Result (01/11/2016 9:04 [...] DNA isolated from plasma was performed using Mindflash BKV (ASR) reagents and the [employer] 7500 FAST Real-Time PCR System. In addition, the ??PCR product sequence is confirmed using physical properties (melting curve analysis). This test was developed and its performance determined by the [facility]. It has not been [...] testing. [facility] Comment: [VERIFIED DATE]01.22.16 Verified By:Nella Evans (Electronic Signature) Blood specimen (specimen) 01/11/2016 9:04 AM EDT 01/11/2016 9:45 AM EDT Narrative Resulting Agency Comment Spec In Lab Que Amaro MD HEMATOLOGY ORD ERABLES [facility] [place] [address] * Differential, Automated (01/11/2016 9:04 AM EDT) Neutrophil % 69.7 % [facility] Neutrophil Absolute 3.82 1.50 - 6.30 x10(3)/[facility] Lymph % 21.2 % [facility] Lymphocytes Abs 1.2 1.0 - 3.6 x10(3)/[facility] Monocyte % 5.1 % [facility] Monocyte Abs 0.3 0.2 - 1.0 x10(3)/[facility] Eos % 1.8 % [facility] Eosinophils Abs 0.1 0.0 - 0.5 x10(3)/[facility] Basophil % 2.0 % [facility] Baso Absolute 0.1 0.0 - 0.2 x10(3)/[facility] Immature Gran % 0.20 % [facility] Comment: Immature granulocytes(IG's)percentage and absolute count will include metamyelocytes, myelocytes, and promyelocytes. Blood smears from CBCs yielding IG's will be scanned manually for concordance. If this scan disagrees with the automated IG or if promyelocytes are noted, a manual differential will be performed. Immature Gran Absolute 0.01 0.00 - 0.05 x10(3)/mcL [facility] Blood specimen (specimen) 01/11/2016 9:04 AM EDT 01/11/2016 9:11 AM EDT Narrative Resulting Agency Comment Spec In Lab Que Amaro MD HEMATOLOGY ORD ERABLES [facility] [place] [address] * (ABNORMAL) Hemogram (01/11/2016 9:04 AM EDT) White Blood Cell 5.5 4.0 - 10.0 x10(3)/mc L [facility] Red Blood Cell 4.47(L) 4.63 - 6.08 x10(6)/mc L [facility] Hemoglobin 14.0 13.7 - 17.5 gm/dL [facility] Hematocrit 40.9 40.0 - 51.0 % [facility] Mean Cell Volume 91.5 79.0 - 92.0 fL [facility] Mean Cell Hemoglobin 31.3 25.6 - 32.2 pg [facility] Mean Cell Hemoglobin Concentration 34.2 32.0 - 36.5 gm/dL [facility] Platelet 180 145 - 370 x10(3)/mc L [facility] RDW Standard Deviation 47.2(H) 35.0 - 46.0 fL [facility] RDW coefficient of variation 14.4 10.9 - 14.4 % [facility] Mean Platelet Volume 9.7 9.0 - 12.0 fL [facility] Blood specimen (specimen) 01/11/2016 9:04 AM EDT 01/11/2016 9:11 AM EDT Narrative Resulting Agency Comment Spec In Lab Que Amaro MD HEMATOLOGY ORD ERABLES [facility] [place] [address] * (ABNORMAL) Comprehensive metabolic panel (non-fasting) (01/11/2016 9:04 AM EDT) Glucose 207(H) 65 - 199 mg/dL [facility] Comment:Diabetes: >=200 mg/d L plus symptoms Blood Urea Nitrogen 21(H) 10 - 20 mg/dL [facility] Creatinine 2.12(H) 0.80 - 1.50 mg/dL [facility] [...] questions. Chloride 100 98 - 107 mmol/L [facility] Carbon Dioxide 27 22 - 31 mmol/L [facility] Anion Gap 15 5 - 15 mmol/L [facility] Calcium 9.6 8.5 - 10.5 mg/dL [facility] Protein, Total 7.8 6.1 - 8.0 gm/dL [facility] Albumin 4.3 3.2 - 5.2 gm/dL [facility] Aspartate Aminotransferase 19 0 - 39 unit/L [facility] Alanine Aminotransferase 13 0 - 55 unit/L [facility] Alkaline Phosphatase 77 40 - 120 unit/L [facility] Bilirubin, Total 1.1 0.2 - 1.3 mg/dL [facility] Bilirubin, Direct 0.3 0.0 - 0.3 mg/dL [facility] Est Glomerular Filtration Rate 31(L) >=60 [facility] Comment: This [...] the following links into your internet browser. [email or web address] Blood specimen (specimen) 01/11/2016 9:04 AM EDT 01/11/2016 9:10 AM EDT Narrative Resulting Agency Comment Spec In Lab Que Amaro MD CHEMISTRY ROCHELLE JENNINGS Performing Organization Address [facility] Co de Phone Number [facility] [place] [address] * (ABNORMAL) Magnesium (01/11/2016 9:04 AM EDT) Magnesium 0.46(L) 0.69 - 1.07 mmol/L [facility] Blood specimen (specimen) 01/11/2016 9:04 AM EDT 01/11/2016 9:10 AM EDT Narrative Resulting Agency Comment Spec In Lab Que Aamro MD CHEMISTRY ROCHELLE JENNINGS Performing Organization Address City/[facility]/ZIP Co de Phone Number [facility] [place] [address] * Phosphorus (01/11/2016 9:04 AM EDT) Phosphorus 2.7 2.5 - 4.5 mg/dL [facility] Blood specimen (specimen) 01/11/2016 9:04 AM EDT 01/11/2016 9:10 AM EDT Narrative Resulting Agency Comment Spec In Lab Que Amaro MD CHEMISTRY ORDBhargav JENNINGS [facility] [place] [address] * (ABNORMAL) Uric acid (01/11/2016 9:04 AM EDT) Uric Acid 8.8(H) 3.5 - 8.5 mg/dL [facility] Blood specimen (specimen) 01/11/2016 9:04 AM EDT 01/11/2016 9:10 AM EDT Narrative Resulting Agency Comment Spec In Lab Que Amaro MD CHEMISTRY ORDBhargav JENNINGS Performing Organization Address [facility] Co de Phone Number [facility] [place] [address] * Tacrolimus level (01/11/2016 9:04 AM EDT) Tacrolimus 9.7 ng/mL [facility] Comment:Trough therapeutic: 5-15 ng/mL Blood specimen (specimen) 01/11/2016 9:04 AM EDT 01/11/2016 10:45 AM EDT Narrative Resulting Agency Comment Spec In Lab Que Amaro MD CHEMISTRY ORDBhargav JENNINGS Performing Organization Address City/[facility]/ZIP Co de Phone Number [facility] [address] * (ABNORMAL) Reticulocyte Count (01/11/2016 9:04 AM EDT) Reticulocyte % 2.2 0.5 - 2.4 % [facility] Retic Abs # 0.100(H) 0.027 - 0.095 x10(6)/mc L [facility] Immature Retic% 8.4 2.3 - 15.9 % [facility] Reticulated Hgb 33.3 28.5 - 38.9 pg [facility] Immature Plt % 2.3 0.0 - 7.4 % [facility] Blood specimen (specimen) 01/11/2016 9:04 AM EDT 01/11/2016 9:11 AM EDT Narrative Resulting Agency Comment Spec In Lab Que Amaro MD HEMATOLOGY ORD ERABLES Performing Organization Address City/[facility]/ZIP Co de Phone Number [facility] [place] [address] * Cholesterol, total (01/11/2016 9:04 AM EDT) Cholesterol, Total 139 <=199 mg/dL [facility] Comment: [...] MD CHEMISTRY ORDBhargav JENNINGS Performing Organization Address [facility] Co de Phone Number [facility] [place] [address] documented in this encounter Visit Diagnoses Diagnosis Kidney replaced by transplant documented in this encounter Care Teams Relay Shop Tester Relationship Specialty Start Date End Date Urbano Denis DO [address] [place] [address] PCP - General 09/03/12 03/17/22 Ruchi Valles RN Nurse Clinic Transplant Surgery 07/30/15 documented as of this encounter
--- OUTSIDE RECORDS SUMMARY | 2024-04-04 14:11 | XMS_ITS | Encounter Summary ---
[place] [address] Care Team Providers Care Reception Clerk Name Role Phone Urbano Denis DO Primary Care Provider + [phone] Reason for Referral * Diagnostic Test (Routine) - Closed Specialty Diagnoses / Procedures Referred By Humberto flor Referred To Contact Radiology Diagnoses Kidney replaced by transplant Procedures IR all procedures Victor Manuel Torre MD [facility] DR VASCULAR [place] [address] [place] [address] Referral ID Status Reason Start Date Expiration Date V isits Requested Visits Authorized [id number] Closed Specialty Service Requested 01/31/2016 01/30/2017 1 1 Encounter Details Date Type Department Care Team (Late st Contact Info) Description 01/11/2016 10:30 AM EDT Office Visit [place] [address] Que Amaro MD [facility] DR TRANS[place] [address] Kidney replaced by transplant; Hypothyroidism, unspecified type [...] Bell, RD - 01/11/2016 1:06 PM EDT [facility] Post Transplant Nutrition Follow Up Date: 01/11/2016 Patient: Cody Bolden Transplant Date: 09/16/15 [place] organ UNOS diagnosis: Transplant: Mr. Cody Bolden [...] Value Date CHLPL 139 01/11/2016 Assessment: This jingle writer reviewed patient's blood chemistries with him. [...] by Que Amaro MD at [facility] OR? Pro transplantation of kidney?? N/A?? 09/16/2015? @KIDNEY TRANSPLANT, WITHOUT RECIPIENT NEPHRECTOMY performed by Franko Larkin MD at [facility] OR? Pro transplant, prep cadaver renal graft?? N/A?? 09/16/2015? @PREPARATION CADAVERIC RENAL ALLOGRAFT performed by Franko Larkin MD at [facility] OR? N/A?? 09/16/2015? ORGAN ACQUISITION RENAL, CADAVERIC performed by Franko Larkin MD at [facility] OR? Vitals: 01/11/16 1034 BP: 122/69 Pulse: [...] ?? Victor Manuel Torre M.D. PGY-4 Pager [phone] ?? I have seen the patient and [...] PM EDT Office Visit Cardiology at [address] [phone] Jay Urban MD [facility] [address] [place] [id number] 04/15/2024 10:00 AM EDT Hospital Encounter Non-[place] [address] Arrived documented as of this encounter Results * (ABNORMAL) TSH (03/25/2016 9:59 AM EDT) Thyroid Stimulating Hormone 5.38(H) 0.27 - 4.20 mcIU/mL [facility] Blood specimen (specimen) 03/25/2016 9:59 AM EDT 03/25/2016 10:12 AM EDT Narrative Resulting Agency Comment Spec In Lab Que Amaro MD CHEMISTRY ROCHELLE JENNINGS [facility] [place] [address] * IR all procedures (02/01/2016 11:37 AM [...] was prepped and draped in supine position. Lamp Wirer image obtained. ??7 cc 1% lidocaine SQ [...] 9:33 AM EDT) Creatinine, Urine 114 mg/dL [facility] Protein, Urine 33(H) 0 - 12 mg/dL [facility] Protein / Creatinine Ratio, Urine 0.3 ratio [facility] Urine specimen (specimen) 01/11/2016 9:33 AM EDT 01/11/2016 9:41 AM EDT Narrative Resulting Agency Comment Spec In Lab Que Amaro MD URINE ORDERABL ES [facility] [place] [address] * (ABNORMAL) Urinalysis with reflex Culture (01/11/2016 [...] [facility] Blood, Urine Dipstick Small(A) Negative mg/dL [facility] Ketone, Urine Dipstick Negative Negative mg/dL [facility] Nitrite, Urine Dipstick Negative Negative [facility] Leukocytes, Urine Dipstick Small(A) Negative [facility] Appearance, Urine Dipstick Clear Clear [facility] Specific [place] Urine Automated 1.015 1.002 - 1.030 [facility] Color, Urine Dipstick Yellow Yellow [facility] RBC, Urine 1 0 - 3 /HPF [facility] WBC, Urine 6(H) 0 - 3 /HPF [facility] Bacteria, Urine Rare(A) None /HPF [facility] Hyaline Casts, Urine 1 0 - 2 /LPF [facility] Reflex to Culture Yes [facility] Urine specimen (specimen) 01/11/2016 9:33 AM EDT 01/11/2016 9:41 AM EDT Narrative Resulting Agency Comment Spec In Lab Que Amaro MD URINE ORDERABL ES [facility] [place] [address] * (ABNORMAL) Comprehensive metabolic panel (non-fasting) (01/11/2016 9:04 AM EDT) Glucose 207(H) 65 - 199 mg/dL [facility] Comment:Diabetes: >=200 mg/d L plus symptoms Blood Urea Nitrogen 21(H) 10 - 20 mg/dL [facility] Creatinine 2.12(H) 0.80 - 1.50 mg/dL [facility] Comment: Please note that the pediatric reference intervals supplied above were not validated at [facility]. Results from pediatric patients should be interpreted in conjunction to the patient's age, height and muscle mass. Sodium 142 135 - 145 mmol/L [facility] [...] mmol/L [facility] Carbon Dioxide 27 22 - 31 mmol/L [facility] Anion Gap 15 5 - 15 mmol/L [facility] Calcium 9.6 8.5 - 10.5 mg/dL [facility] Protein, Total 7.8 6.1 - 8.0 gm/dL [facility] Albumin 4.3 3.2 - 5.2 gm/dL [facility] Aspartate Aminotransferase 19 0 - 39 unit/L [facility] Alanine Aminotransferase 13 0 - 55 unit/L [facility] Alkaline Phosphatase 77 40 - 120 unit/L [facility] Bilirubin, Total 1.1 0.2 - 1.3 mg/dL [facility] Bilirubin, Direct 0.3 0.0 - 0.3 mg/dL [facility] Est Glomerular Filtration Rate 31(L) >=60 [facility] Comment: This [...] the following links into your internet browser. [email or web address] Blood specimen (specimen) 01/11/2016 9:04 AM EDT 01/11/2016 9:10 AM EDT Narrative Resulting Agency Comment Spec In Lab Que Amaro MD CHEMISTRY ORDBhargav JENNINGS Performing Organization Address City/[facility]/ZIP Co de Phone Number [facility] [place] [address] * (ABNORMAL) Magnesium (01/11/2016 9:04 AM EDT) Magnesium 0.46(L) 0.69 - 1.07 mmol/L [facility] Blood specimen (specimen) 01/11/2016 9:04 AM EDT 01/11/2016 9:10 AM EDT Narrative Resulting Agency Comment Spec In Lab Que Amaro MD CHEMISTRY ORDBhargav JENNINGS Performing Organization Address City/[facility]/ZIP Co de Phone Number [facility] [place] [address] * Phosphorus (01/11/2016 9:04 AM EDT) Phosphorus 2.7 2.5 - 4.5 mg/dL [facility] Blood specimen (specimen) 01/11/2016 9:04 AM EDT 01/11/2016 9:10 AM EDT Narrative Resulting Agency Comment Spec In Lab Que Amaro MD CHEMISTRY ORDBhargav JENNINGS Performing Organization Address [facility] Co de Phone Number [facility] [place] [address] * (ABNORMAL) Uric acid (01/11/2016 9:04 AM EDT) Uric Acid 8.8(H) 3.5 - 8.5 mg/dL [facility] Blood specimen (specimen) 01/11/2016 9:04 AM EDT 01/11/2016 9:10 AM EDT Narrative Resulting Agency Comment Spec In Lab Que Amaro MD CHEMISTRY ORDE DICK Performing Organization Address [facility] Co de Phone Number [facility] [place] [address] * Tacrolimus level (01/11/2016 9:04 AM EDT) Tacrolimus 9.7 ng/mL [facility] Comment:Trough therapeutic: 5-15 ng/mL Blood specimen (specimen) 01/11/2016 9:04 AM EDT 01/11/2016 10:45 AM EDT Narrative Resulting Agency Comment Spec In Lab Que Amaro MD CHEMISTRY ORDBhargav JENNINGS Performing Organization Address [facility] Co de Phone Number [facility] [place] [address] * (ABNORMAL) Reticulocyte Count (01/11/2016 9:04 AM EDT) Reticulocyte % 2.2 0.5 - 2.4 % [facility] Retic Abs # 0.100(H) 0.027 - 0.095 x10(6)/mc L [facility] Immature Retic% 8.4 2.3 - 15.9 % [facility] Reticulated Hgb 33.3 28.5 - 38.9 pg [facility] Immature Plt % 2.3 0.0 - 7.4 % [facility] Blood specimen (specimen) 01/11/2016 9:04 AM EDT 01/11/2016 9:11 AM EDT Narrative Resulting Agency Comment Spec In Lab Que Amaro MD HEMATOLOGY ORD ERABLES Performing Organization Address [facility] Co de Phone Number [facility] [place] [address] * Cholesterol, total (01/11/2016 9:04 AM EDT) Cholesterol, Total 139 <=199 mg/dL [facility] Comment: Recommendations of the NCEP Adult Treatment Panel for the following risk cutoff thresholds for the [place] population: Desirable: <200 mg/dL Borderline High: 200-239 mg/dL High: > or = 240 mg/dL Blood specimen (specimen) 01/11/2016 9:04 AM EDT 01/11/2016 9:10 AM EDT Narrative Resulting Agency Comment Spec In Lab Que Amaro MD CHEMISTRY ORDBhargav JENNINGS Performing Organization Address [facility] Co de Phone Number [facility] [place] [address] documented in this encounter Visit Diagnoses Diagnosis Kidney replaced by transplant Hypothyroidism, unspecified type documented in this encounter Care Teams Reception Clerk Relationship Specialty Start Date End Date Urbano Denis DO [address] [place] [address] [address] [place] [address] PCP - General 09/03/12 03/17/22 Ruchi Valles RN Nurse Clinic Transplant Surgery 07/30/15 documented as of this encounter
--- OUTSIDE RECORDS SUMMARY | 2024-04-04 14:11 | XMS_ITS | Encounter Summary ---
Author Organization [facility] Address [facility] [place] [address] Care Team Providers Care Rim Fire Priming Tool Setter Name Role Phone Urbano Denis DO Primary Care Provider [phone] Reason for Visit * Auth/Cert Specialty Diagnoses / Procedures Referred By Humberto t Referred To Contact Diagnoses RAY (acute kidney injury) RAY - RO REJECTION / SP RENAL TRANSPLANT Referral ID Status Reason Start Date Expiration Date Visits Re quested Visits Authorized [id number] 1 1 Encounter Details Date Type Department Care Team (Late st Contact Info) Description 01/03/2016 12:33 PM EDT - 01/03/2016 11:59 PM EDT Hospital Encounter XRay at [address] [place] [address] Que Amaro MD [facility] [place] [address] H/O kidney transplant Discharge Disposition: Home Social [...] PM EDT Office Visit Cardiology at [address] [phone] Jay Urban MD [facility] [place] [address] 04/15/2024 10:00 AM EDT Hospital Encounter Non-Invasive Cardiology Lab [facility] [place] [address] Arrived documented as of this encounter Procedures [...] transplant documented in this encounter Care Teams Rim Fire Priming Tool Setter Relationship Specialty Start Date End Date Urbano Denis DO [address] [place] [address] PCP - General 09/03/12 03/17/22 Ruchi Valles RN Nurse Clinic Transplant Surgery 07/30/15 documented as of this encounter
--- OUTSIDE RECORDS SUMMARY | 2024-04-04 14:11 | XMS_ITS | Encounter Summary ---
Author Organization [facility] [place] [address] Care Team Providers Care Gunstock Spray Unit Feeder Name Role Phone AdeelUrbano toscano Primary Care Provider Encounter Details Date Type Department Care Team (Late st Contact Info) Description 01/03/2016 Orders Only Solid [place] [phone] [facility] [place] [address] H/O kidney transplant Social History Tobacco Use [...] PM EDT Office Visit Cardiology at [address] [phone] [facility] [place] [address] 04/15/2024 10:00 AM EDT Hospital Encounter Non[place] [address] Arrived documented as of this [...] transplant documented in this encounter Care Teams Gunstock Spray Unit Feeder Relationship Specialty Start Date End Date Urbano Denis DO [address] [place] [address] PCP - General 09/03/12 03/17/22 Ruchi Valles RN Nurse Clinic Transplant Surgery 07/30/15 documented as of this encounter
--- OUTSIDE RECORDS SUMMARY | 2024-04-04 14:11 | XMS_ITS | Encounter Summary ---
Author Organization [facility] [place] [address] Care Team Providers Care Toilet Attendant Name Role Phone AdeelUrbano boland Primary Care Provider + [phone] Encounter Details Date Type Department Care Team (Late st Contact Info) Description 01/09/2016 Telephone Solid [place] [address] Victor Manuel Torre MD [facility] DR [place]ULAR [place] [address] Social History Tobacco Use Types Packs/Day Years [...] PM EDT Office Visit Cardiology at [address] [phone] Jay Urban MD [facility] [place] [place] [address] 04/15/2024 10:00 AM EDT Hospital Encounter Non-Invasive [place] [address] Arrived documented as of this encounter Visit Diagnoses Not on filedocumented in this encounter Care Teams Toilet Attendant Relationship Specialty Start Date End Date Urbano Denis DO [address] [place] [address] [address] [facility] [address] [place] [address] PCP - General 09/03/12 03/17/22 Ruchi Valles RN Nurse Clinic Transplant Surgery 07/30/15 documented as of this encounter
--- OUTSIDE RECORDS SUMMARY | 2024-04-04 14:11 | XMS_ITS | Encounter Summary ---
Author Organization [facility] [place] [address] Care Team Providers Care Regulatory Affairs Internship Name Role Phone AdeelUrbano toscano Primary Care Provider Encounter Details Date Type Department Care Team (Late st Contact Info) Description 01/14/2016 Notes Only [place] [address] Chapin Lehman MSW Social History [...] PM EDT Office Visit Cardiology at [address] [phone] Jay Urban MD [facility] [place] [address] 04/15/2024 10:00 AM EDT Hospital Encounter Non-Invasive [place] [address] Arrived documented as of this encounter Visit Diagnoses Not on filedocumented in this encounter Care Teams Regulatory Affairs Internship Relationship Specialty Start Date End Date Urbano Denis DO [address] [place] [address] [address] [place] [address] PCP - General 09/03/12 03/17/22 Ruchi Valles RN Nurse Clinic Transplant Surgery 07/30/15 documented as of this encounter
--- OUTSIDE RECORDS SUMMARY | 2024-04-04 14:11 | XMS_ITS | Encounter Summary ---
Author Organization [facility] [place] [address] Care Team Providers Care Bunch Maker Name Role Phone Urbano Denis DO Primary Care Provider Encounter Details Date Type Department Care Team (Late st Contact Info) Description 01/04/2016 2:00 PM EDT Office Visit [place] [address] Que Amaro MD [facility] [place] [address] Kidney replaced by transplant Social History Tobacco [...] of urine from the time he left [facility] until 7 am. He did not measure [...] EXTREMITY performed by Que Amaro MD at [facility] OR ??? Pro transplantation of kidney N/A 09/16/2015 @KIDNEY TRANSPLANT, WITHOUT RECIPIENT NEPHRECTOMY performed by Franko Larkin MD at [facility] OR ??? Pro transplant, prep cadaver renal graft N/A 09/16/2015 @PREPARATION CADAVERIC RENAL ALLOGRAFT performed by Franko Larkin MD at [facility] OR ??? N/A 09/16/2015 ORGAN ACQUISITION RENAL, CADAVERIC performed by Franko Larkin MD at [facility] OR Visit Vitals: BP 112/68 [...] we spoke to the Transplant ID Fellow industrial relations analyst. She stated that the WBC/RBC ratio of [...] with Dr. Sondra Torre M.D. PGY-4 Pager [phone] documented in this encounter Plan of Treatment Upcoming Encounters Date Type Department Care Team (Late st Contact Info) Description 04/08/2024 1:40 PM EDT Office Visit Cardiology at [address] [phone] Jay Urban MD [facility] [place] [address] 04/15/2024 10:00 AM EDT Hospital Encounter Non-Invasive [place] [phone] Arrived Scheduled Orders Name Type Priority Associated Diagnoses Orde r Schedule CBC (with Diff) Lab STAT Kidney replaced by transplant Expected: 01/03/2016 (Approximate), Expires: 07/01/2016 Comprehensive metabolic panel (non-fasting) Lab STAT Kidney replaced by transplant Expected: 01/03/2016 (Approximate), Expires: 07/01/2016 documented as of this encounter Results * (ABNORMAL) Magnesium (01/04/2016 1:55 PM EDT) Magnesium 0.63(L) 0.69 - 1.07 mmol/L [facility] Blood specimen (specimen) 01/04/2016 1:55 PM EDT 01/04/2016 2:05 PM EDT Narrative Resulting Agency Comment Spec In Lab Que Amaro MD CHEMISTRY ORDBhargav JENNINGS Performing Organization Address City/[facility]/ZIP Co de Phone Number [facility] [place] [address] * (ABNORMAL) Phosphorus (01/04/2016 1:55 PM EDT) Phosphorus 2.1(L) 2.5 - 4.5 mg/dL [facility] Blood specimen (specimen) 01/04/2016 1:55 PM EDT 01/04/2016 2:05 PM EDT Narrative Resulting Agency Comment Spec In Lab Que Amaro MD CHEMISTRY ROCHELLE JENNINGS Performing Organization Address [facility]/ZIP Co de Phone Number [facility] [place] [address] * Uric acid (01/04/2016 1:55 PM EDT) Uric Acid 7.0 3.5 - 8.5 mg/dL [facility] Blood specimen (specimen) 01/04/2016 1:55 PM EDT 01/04/2016 2:05 PM EDT Narrative Resulting Agency Comment Spec In Lab Que Amaro MD CHEMISTRY ORDBhargav JENNINGS Performing Organization Address City/[facility] Co de Phone Number [facility] [place] [address] * Reticulocyte Count (01/04/2016 1:55 PM EDT) Reticulocyte % 1.0 0.5 - 2.4 % [facility] Retic Abs # 0.040 0.027 - 0.095 x10(6)/mcL [facility] Immature Retic% 5.5 2.3 - 15.9 % [facility] Reticulated Hgb 35.3 28.5 - 38.[address] [facility] Immature Plt % 1.1 0.0 - 7.4 % [facility] Blood specimen (specimen) 01/04/2016 1:55 PM EDT 01/04/2016 2:05 PM EDT Narrative Resulting Agency Comment Spec In Lab Que Amaro MD HEMATOLOGY ORD AMANDABLES Performing Organization Address [facility] Co de Phone Number [facility] [place] [address] * Cholesterol, total (01/04/2016 1:55 PM EDT) Cholesterol, Total 137 <=199 mg/dL [facility] Comment: Recommendations of the NCEP Adult Treatment Panel for the following risk cutoff thresholds for the [place] population: Desirable: <200 mg/dL Borderline High: 200-239 mg/dL High: > or = 240 mg/dL Blood specimen (specimen) 01/04/2016 1:55 PM EDT 01/04/2016 2:05 PM EDT Narrative Resulting Agency Comment Spec In Lab Que Amaro MD CHEMISTRY ORDBhargav JENNINGS Performing Organization Address [facility] Co de Phone Number [facility] [place] [address] * (ABNORMAL) Protein/Creatinine Ratio, urine (01/04/2016 1:54 PM EDT) Creatinine, Urine 128 mg/dL [facility] Protein, Urine 130(H) 0 - 12 mg/dL [facility] Protein / Creatinine Ratio, Urine 1.[address] [facility] Urine specimen (specimen) 01/04/2016 1:54 PM EDT 01/04/2016 2:01 PM EDT Narrative Resulting Agency Comment Spec In Lab Que Amaro MD URINE ORDERABL ES [facility] [place] [address] * (ABNORMAL) Urinalysis with reflex Culture (01/04/2016 [...] [facility] Blood, Urine Dipstick Moderate(A) Negative mg/dL [facility] Ketone, Urine Dipstick Negative Negative mg/dL [facility] Nitrite, Urine Dipstick Negative Negative [facility] Leukocytes, Urine Dipstick Moderate(A) Negative [facility] Appearance, Urine Dipstick Cloudy(A) Clear [facility] Specific [place] Urine Automated 1.016 1.002 - 1.030 [facility] Color, Urine Dipstick Yellow Yellow [facility] RBC, Urine 74(H) 0 - 3 /HPF [facility] WBC, Urine 35(H) 0 - 3 /HPF [facility] Bacteria, Urine Rare(A) None /HPF [facility] Squamous Epithelial Cells, Urine <1 <=4 /HPF [facility] Reflex to Culture Yes [facility] Urine specimen (specimen) 01/04/2016 1:54 PM EDT 01/04/2016 2:00 PM EDT Narrative Resulting Agency Comment Spec In Lab Que Amaro MD URINE ORDERABL ES [facility] [place] [address] documented in this encounter Visit Diagnoses Diagnosis Kidney replaced by transplant documented in this encounter Care Teams Bunch Maker Relationship Specialty Start Date End Date Urbano Denis DO [address] [place] [address] PCP - General 09/03/12 03/17/22 Ruchi Valles RN Nurse Clinic Transplant Surgery 07/30/15 documented as of this encounter
--- OUTSIDE RECORDS SUMMARY | 2024-04-04 14:11 | XMS_ITS | Encounter Summary ---
Author Organization [facility] [place] [address] Care Team Providers Care Separator Operator Shellfish Meats Name Role Phone Urbano Denis DO Primary Care Provider Encounter Details Date Type Department Care Team (Latest Contact Info) Description 01/04/2016 1:00 PM EDT Laboratory Appointment Lab [address] [place] [phone] Hepatitis C virus infection without hepatic coma, [...] PM EDT Office Visit Cardiology at [address] [phone] Jay Urban MD [facility] [place] [address] 04/15/2024 10:00 AM EDT Hospital Encounter Non-Invasive Cardiology [place] [address] Arrived Pending Results Name Type Priority Associated Diagnoses Date /Time Hepatitis C genotype Lab Routine Hepatitis C virus infection without hepatic coma, unspecified chronicity 01/04/2016 1:44 PM EDT documented as of this encounter Procedures Procedure Name Priority Date/Time Associated Diagnosis Comments MISCELLANEOUS LAB REQUEST Routine 01/04/2016 1:55 PM EDT Hepatitis C virus infection without hepatic coma, unspecified chronicity [facility] BERG TEST-BERG Routine 01/04/2016 1 :55 PM [...] EDT documented in this encounter Results * [facility] Test-Dillon (01/04/2016 1:55 PM EDT) [facility] Berg Test ?Result ?Flag ??Unit ??RefValue HCV RNA [...] For additional information please refer to [email or web address] This test was developed and its analytical performance characteristics have been determined by [employer]. It has not been cleared or approved by the FDA. This assay has been validated pursuant to the CLIA regulations and is used for clinical purposes. Test Performed by: [employer], [employer]. [id number] [place] [address] [facility] Blood specimen (specimen) Venous Draw / Unknown 01/04/2016 1:55 PM EDT 01/04/2016 4:01 PM EDT Narrative Resulting Agency Comment Spec In Lab Tulio Marcelo MD LAB SEND OUT ORDERA BLES [facility] [place] [address] * (ABNORMAL) Differential, Automated (01/04/2016 1:55 PM EDT) Neutrophil % 74.7 % [facility] Neutrophil Absolute 5.46 1.50 - 6.30 x10(3)/mc L [facility] Lymph % 19.9 % [facility] Lymphocytes Abs 1.5 1.0 - 3.6 x10(3)/mc L [facility] Monocyte % 1.8 % [facility] Monocyte Abs 0.1(L) 0.2 - 1.0 x10(3)/mc L [facility] Eos % 2.7 % [facility] Eosinophils Abs 0.2 0.0 - 0.5 x10(3)/mc L [facility] Basophil % 0.8 % [facility] Baso Absolute 0.1 0.0 - 0.2 x10(3)/mc L [facility] Immature Gran % 0.10 % WHITE [...] Absolute 0.01 0.00 - 0.05 x10(3)/ L [facility] Blood specimen (specimen) 01/04/2016 1:55 PM EDT 01/04/2016 2:05 PM EDT Narrative Resulting Agency Comment Spec In Lab Tulio Marcelo MD HEMATOLOGY ORDERABL ES [facility] [place] [address] * (ABNORMAL) Hemogram (01/04/2016 1:55 PM EDT) White Blood Cell 7.3 4.0 - 10.0 x10(3)/[facility] Red Blood Cell 4.29(L) 4.63 - 6.08 x10(6)/[facility] Hemoglobin 13.6(L) 13.7 - 17.5 gm/dL [facility] Hematocrit 39.9(L) 40.0 - 51.0 % [facility] Mean Cell Volume 93.0(H) 79.0 - 92.0 fL [facility] Mean Cell Hemoglobin 31.7 25.6 - 32.2 pg [facility] Mean Cell Hemoglobin Concentration 34.1 32.0 - 36.5 gm/dL [facility] Platelet 244 145 - 370 x10(3)/[facility] RDW Standard Deviation 45.9 35.0 - 46.0 fL [facility] RDW coefficient of variation 13.8 10.9 - 14.4 % [facility] Mean Platelet Volume 9.2 9.0 - 12.0 fL [facility] Blood specimen (specimen) 01/04/2016 1:55 PM EDT 01/04/2016 2:05 PM EDT Narrative Resulting Agency Comment Spec In Lab Tulio Marcelo MD HEMATOLOGY ORDERABL ES Performing Organization Address [facility]/ZIP Co de Phone Number [facility] [place] [address] * Miscellaneous Lab request (01/04/2016 1:55 PM EDT) Label Request received in lab. [facility] Blood specimen (specimen) 01/04/2016 1:55 PM EDT 01/04/2016 5:54 PM EDT Narrative Resulting Agency Comment Spec In Lab Tulio Marcelo MD LAB SEND OUT ORDERA BLES Performing Organization Address [facility] Co de Phone Number [facility] [place] [address] * (ABNORMAL) Magnesium (01/04/2016 1:55 PM EDT) Magnesium 0.63(L) 0.69 - 1.07 mmol/L [facility] Blood specimen (specimen) 01/04/2016 1:55 PM EDT 01/04/2016 2:05 PM EDT Narrative Resulting Agency Comment Spec In Lab Que Amaro MD CHEMISTRY ROCHELLE JENNINGS Performing Organization Address [facility] Co de Phone Number [facility] [place] [address] * (ABNORMAL) Phosphorus (01/04/2016 1:55 PM EDT) Phosphorus 2.1(L) 2.5 - 4.5 mg/dL [facility] Blood specimen (specimen) 01/04/2016 1:55 PM EDT 01/04/2016 2:05 PM EDT Narrative Resulting Agency Comment Spec In Lab Que Amaro MD CHEMISTRY ORDBhargav JENNINGS Performing Organization Address City/[facility]/ZIP Co de Phone Number [facility] [place] [address] * Uric acid (01/04/2016 1:55 PM EDT) Uric Acid 7.0 3.5 - 8.5 mg/dL [facility] Blood specimen (specimen) 01/04/2016 1:55 PM EDT 01/04/2016 2:05 PM EDT Narrative Resulting Agency Comment Spec In Lab Que Amaro MD CHEMISTRY ORDE RABLENORE Performing Organization Address [facility] de Phone Number [facility] [place] [address] * Reticulocyte Count (01/04/2016 1:55 PM EDT) Pathologist [facility] Reticulocyte % 1.0 0.5 - 2.4 % [...] ORD ERABLES Performing Organization Address [facility] Co de Phone Number [facility] [place] [address] * Cholesterol, total (01/04/2016 1:55 PM EDT) Cholesterol, Total 137 <=199 mg/dL [facility] Comment: Recommendations of the NCEP Adult Treatment Panel for the following risk cutoff thresholds for the [place] population: Desirable: <200 mg/dL Borderline High: 200-239 mg/dL High: > or = 240 mg/dL Blood specimen (specimen) 01/04/2016 1:55 PM EDT 01/04/2016 2:05 PM EDT Narrative Resulting Agency Comment Spec In Lab Que JENNINGS Performing Organization Address [facility] Co de Phone Number [facility] [place] [address] * Hepatitis C RNA, quantitative, PCR (01/04/2016 1:55 PM EDT) HCV Viral Load 516,252 IU/mL [facility] HCV Viral Load Result: [id number] IU/mL Indication for Study: Hepatitis C Infection Analysis: A quantitiative real time reverse transcriptase PCR assay was performed on extracted viral RNA for the purpose of quantification. Sample: plasma (1 mL minimum volume) Method: Kirsten June TaqMAN 48 HCV Linear Range: 15 IU/mL - 100,000,000IU/mL (95% CI) Note: This assay is being performed in the [facility]. Gibson Good, Ph.D. Director, Molecular Pathology [facility] Comment: [VERIFIED DATE]01.09.16 Verified By:Fatemeh Garcia (Electronic Signature) Blood specimen (specimen) 01/04/2016 1:55 PM EDT 01/08/2016 8:08 AM EDT Narrative Resulting Agency Comment Spec In Lab Tulio Marcelo MD MOLECULAR ORDERABLE S Performing Organization Address [facility] Co de Phone Number [facility] [place] [address] * Prothrombin Time (01/04/2016 1:55 PM EDT) Pathologist [facility] Prothrombin Time 13.6 12.0 - 15.0 sec [facility] [...] Lab Tulio Marcelo MD HEMATOLOGY ORDERABL ES [facility] [place] [address] * (ABNORMAL) Comprehensive metabolic panel (non-fasting) (01/04/2016 1:55 PM EDT) Glucose 104 65 - 199 mg/dL [facility] Comment:Diabetes: >=200 mg/d L plus symptoms Blood Urea Nitrogen 29(H) 10 - 20 mg/dL [facility] Creatinine 2.69(H) 0.80 - 1.50 mg/dL [facility] Comment: Please note that the pediatric reference intervals supplied above were not validated at [facility]. Results from pediatric patients should be interpreted in conjunction to the patient's age, height and muscle mass. Sodium 138 135 - 145 mmol/L [facility] Potassium 4.1 3.5 - 5.0 mmol/L [facility] Calcium 9.5 8.5 - 10.5 mg/dL [facility] Protein, Total 7.9 6.1 - 8.0 gm/dL [facility] Albumin 4.2 3.2 - 5.2 gm/dL [facility] Aspartate Aminotransferase 21 0 - 39 unit/L [facility] Alanine Aminotransferase 16 0 - 55 unit/L [facility] Alkaline Phosphatase 66 40 - 120 unit/L [facility] Bilirubin, Total 0.9 0.2 - 1.3 mg/dL [facility] Bilirubin, Direct 0.2 0.0 - 0.3 mg/dL [facility] Est Glomerular Filtration Rate 24(L) >=60 [facility] [...] the following links into your internet browser. [email or web address] Blood specimen (specimen) 01/04/2016 1:55 PM EDT 01/04/2016 2:05 PM EDT Narrative Resulting Agency Comment Spec In Lab Tulio Marcelo MD CHEMISTRY ORDERABLE S Performing Organization Address [facility] Co de Phone Number [facility] [place] [address] * Urine culture (01/04/2016 1:54 PM EDT) Urine Culture No growth (Less than 1,000 cfu/ml). [facility] Urine specimen (specimen) 01/04/2016 1:54 PM EDT 01/04/2016 2:23 PM EDT Narrative Resulting Agency Comment Spec In Lab Que Amaro MD MICROBIOLOGY - GENERAL ORDERABLES Performing Organization Address [facility] Co de Phone Number [facility] [place] [address] * (ABNORMAL) Protein/Creatinine Ratio, urine (01/04/2016 1:54 [...] [facility] [place] [address] * (ABNORMAL) Urinalysis with reflex Culture (01/04/2016 [...] CENTER LABOR[facility]ORY Leukocytes, Urine Dipstick Moderate(A) Negative [facility] Appearance, Urine Dipstick Cloudy(A) Clear [facility] Specific Gill Urine Automated 1.016 1.002 - 1.030 WHITE [...] [facility] [place] [address] documented in this encounter Visit Diagnoses Diagnosis Hepatitis C virus infection without hepatic coma, unspecified chronicity Kidney replaced by transplant Kidney transplant infection Complications of transplanted kidney documented in this encounter Care Teams Separator Operator [employer] Relationship Specialty Start Date End Date Urbano Denis DO [address] [place] [address] [address] [place] [address] PCP - General 09/03/12 03/17/22 Ruchi Valles RN Nurse Clinic Transplant Surgery 07/30/15 documented as of this encounter
--- OUTSIDE RECORDS SUMMARY | 2024-04-04 14:12 | XMS_ITS | Encounter Summary ---
[place] [address] Care Team Providers Care Chiseler Head Name Role Phone Urbano Denis DO Primary Care Provider [phone] Reason for Visit * Auth/Cert Specialty Diagnoses / Procedures Referred By Humberto t Referred To Contact Diagnoses RAY (acute kidney injury) RAY - RO REJECTION / SP RENAL TRANSPLANT Referral ID Status Reason Start Date Expiration Date Visits Re quested Visits Authorized [id number] 1 1 Encounter Details Date Type Department Care Team (Latest Contact Info) Description 12/28/2015 12:57 PM EDT - 12/28/2015 11:59 PM EDT Hospital Encounter [place] [address] Kidney replaced by transplant; RAY (acute kidney [...] PM EDT Office Visit Cardiology at [address] [phone] Jay Urban MD [facility] [place] [address] 04/15/2024 10:00 AM EDT Hospital Encounter Non[place] [address] Arrived documented as of this [...] 03:32 pm) PATIENT INFO: ID #: ? [id number] ? : [birth year] (65 yrs) Name: ? ETHEL Gomez MABLE ? Visit Date:12/28/2015 03:01 pm PERFORMED BY: Performed By: ? Kristin Fletcher RDMS Attending: ?Alec GERBER, Guy Vargas Referred By: ?TAL EAGLE MD SERVICE(S) PROVIDED: ??URTPL - Ultrasound Renal Transplant - Left - [id number] INDICATIONS: ??acute rise in creat. rule out [...] Final 12/28/2015 03:32pm) PATIENT INFO: ID #: [id number] : [birth year] (65 yrs) Name: ETHEL MERIDARAMÓN Visit Date:12/28/2015 03:01 pm PERFORMED BY: Performed By: Kristin Fletcher RDMS Attending: Guy Michael MD Referred By: TAL EAGLE MD SERVICE(S) PROVIDED: URTPL - Ultrasound Renal Transplant - Left - [id number] INDICATIONS: acute rise in creat. rule out [...] immunotherapy documented in this encounter Care Teams Chiseler Head Relationship Specialty Start Date End Date Urbano Denis DO [address] [place] [address] PCP - General 09/03/12 03/17/22 Ruchi Valles RN Nurse Clinic Transplant Surgery 07/30/15 documented as of this encounter
--- OUTSIDE RECORDS SUMMARY | 2024-04-04 14:12 | XMS_ITS | Encounter Summary ---
Author Organization [facility] [place] [address] Care Team Providers Care Manager Gyn Name Role Phone Adeel [place] KIRBY Primary Care Provider [phone] Reason for Visit * Reason Comments Follow-up * Auth/Cert Specialty Diagnoses / Procedures Referred By Humberto flor Referred To Contact Diagnoses RAY (acute kidney injury) RAY - RO REJECTION / SP RENAL TRANSPLANT Referral ID Status Reason Start Date Expiration Date Visits Re quested Visits Authorized [id number] 1 1 Encounter Details Date Type Department Care Team (Late st Contact Info) Description 01/03/2016 11:00 AM EDT Office [place] [address] Tulio Marcelo MD [facility] [place] [address] Hepatitis C virus infection without hepatic coma, [...] Marcelo MD - 01/03/2016 10:52 AM EDT [facility] Patient: Cody Bolden Date of : 1950 HOME MORTGAGE DISCLOSURE ACT SPECIALIST: Tulio Marcelo MD PCP: [place] DENIS DO Requesting Provider: 01/03/16 REASON FOR [...] nasal drugs (-) Tattoos? (-) service (+) [phone], airgun vaccines Blood Transfusions (-) Close contact with Hepatitis Relationship (+) cousan [phone]. never tested PHYSICAL EXAM There were no [...] Marcelo MD Section of Gastroenterology and Hepatology [facility] [place] [address] V: [phone] F: [phone] Copy: ALB[place] DENIS DO 25 of this 30 minute visit in face to face discussion regarding disease, prognosis and treatment documented in this encounter Plan of Treatment Upcoming Encounters Date Type Department Care Team (Late st Contact Info) Description 04/08/2024 1:40 PM EDT Office Visit Cardiology at [address] [address] Jay Urban MD [facility] [place] [address] 04/15/2024 10:00 AM EDT Hospital Encounter Non-[place] [address] Arrived documented as of this encounter Results * Miscellaneous Lab request (01/04/2016 1:55 PM EDT) Label Request received in lab. [facility] Blood specimen (specimen) 01/04/2016 1:55 PM EDT 01/04/2016 5:54 PM EDT Narrative Resulting Agency Comment Spec In Lab Tulio Marcelo MD LAB SEND OUT ORDERA BLES [facility] [place] [address] documented in this encounter Visit Diagnoses Diagnosis Hepatitis C virus infection without hepatic coma, unspecified chronicity documented in this encounter Care Teams Manager Gyn Relationship Specialty Start Date End Date [place] Denis DO [address] [place] [address] PCP - General 09/03/12 03/17/22 Hai STANLEY,Ruchi Nurse Clinic Transplant Surgery 07/30/15 documented as of this encounter
--- OUTSIDE RECORDS SUMMARY | 2024-04-04 14:12 | XMS_ITS | Encounter Summary ---
Author Organization [facility] [place] [address] Care Team Providers Care Skin Care Therapist Name Role Phone Adeel Urbano KIRBY Primary Care Provider [phone] Reason for Visit * Reason Comments Kidney Transplant Follow-up Immunotherapy Acute Kidney Injury * Auth/Cert Specialty Diagnoses / Procedures Referred By Humberto flor Referred To Contact Diagnoses RAY (acute kidney injury) RAY - RO REJECTION / SP RENAL TRANSPLANT Referral ID Status Reason Start Date Expiration Date Visits Re quested Visits Authorized [id number] 1 1 Encounter Details Date Type Department Care Team (Latest Contact Info) Description 12/28/2015 10:00 AM EDT Office Visit [place] [address] Madhu Eagle MD [facility] [place] [address] Kidney replaced by transplant; RAY (acute kidney [...] Ferrer MD - 12/28/2015 10:23 AM EDT [facility] Transplant Nephrology Follow Up Ethel Bolden [id number] Transplant ID: Date:? 12/28/2015?? Patient:? Ethel Bolden? Transplant Date:? 09/16/2015? Last clinic visit 12/04/2015?? [...] Negative mcL Appearance UA Clear Clear Spec [place] UA 1.009 1.002 - 1.030 Color UA [...] Miguel Ferrer MD Nephrology fellow Pager # [phone] I reviewed all of the above findings [...] PM EDT Office Visit Cardiology at [address] [address] Jay Urban MD [facility] [place] [address] 04/15/2024 10:00 AM EDT Hospital Encounter [place] [phone] Arrived documented as of this encounter Results [...] 03:32 pm) PATIENT INFO: ID #: ? [id number] ? : [birth year] (65 yrs) Name: ? ETHEL Gomez MABLE ? Visit Date:12/28/2015 03:01 pm PERFORMED BY: Performed By: ? Kristin Fletcher RDMS Attending: ?Alec GERBER, Guy Vargas Referred By: ?MADHU EAGEL MD SERVICE(S) PROVIDED: ??URTPL - Ultrasound Renal Transplant - Left - [id number] INDICATIONS: ??acute rise in creat. rule out [...] Final 12/28/2015 03:32pm) PATIENT INFO: ID #: [id number] : [birth year] (65 yrs) Name: ETHEL Gomez SHAKIRAANARAMÓN Visit Date:12/28/2015 03:01 pm PERFORMED BY: Performed By: Kristin Fletcher RDMS Attending: Guy Michael MD Referred By: MADHU EAGLE MD SERVICE(S) PROVIDED: URTPL - Ultrasound Renal Transplant - Left - [id number] INDICATIONS: acute rise in creat. rule out [...] EDT) Glucose 124 65 - 199 mg/dL [facility] Comment:Diabetes: >=200 mg/d L plus symptoms Blood Urea Nitrogen 51(H) 10 - 20 mg/dL [facility] Creatinine 7.29(H) 0.80 - 1.50 mg/dL [facility] Comment: Please note that the pediatric reference intervals supplied above were not validated at [facility]. Results from pediatric patients should be interpreted in conjunction to the patient's age, height and muscle mass. Sodium 138 135 - 145 mmol/L [facility] Potassium 5.2(H) 3.5 - 5.0 mmol/L [facility] Anion Gap 18(H) 5 - 15 mmol/L [facility] Calcium 9.3 8.5 - 10.5 mg/dL [facility] Protein, Total 7.7 6.1 - 8.0 gm/dL [facility] Albumin 4.1 3.2 - 5.2 gm/dL [facility] Aspartate Aminotransferase 16 0 - 39 unit/L [facility] Alanine Aminotransferase 11 0 - 55 unit/L [facility] Alkaline Phosphatase 74 40 - 120 unit/L [facility] Bilirubin, Total 0.7 0.2 - 1.3 mg/dL [facility] Bilirubin, Direct 0.2 0.0 - 0.3 mg/dL [facility] Est Glomerular Filtration Rate 8(L) >=60 [facility] Comment: [...] the following links into your internet browser. [email or web address] Blood specimen (specimen) 12/28/2015 9:14 AM EDT 12/28/2015 9:21 AM EDT Narrative Resulting Agency Comment Spec In Lab Madhu Eagle MD CHEMISTRY ORDERAB LES Performing Organization Address [facility]/ZIP Co de Phone Number [facility] [place] [address] * (ABNORMAL) Magnesium (12/28/2015 9:14 AM EDT) Magnesium 0.67(L) 0.69 - 1.07 mmol/L [facility] Blood specimen (specimen) 12/28/2015 9:14 AM EDT 12/28/2015 9:21 AM EDT Narrative Resulting Agency Comment Spec In Lab Madhu Eagle MD CHEMISTRY ORDERAB LES Performing Organization Address City/[facility]/ZIP Co de Phone Number [facility] [place] [address] * (ABNORMAL) Phosphorus (12/28/2015 9:14 AM EDT) Phosphorus 6.0(H) 2.5 - 4.5 mg/dL [facility] Blood specimen (specimen) 12/28/2015 9:14 AM EDT 12/28/2015 9:21 AM EDT Narrative Resulting Agency Comment Spec In Lab Madhu Eagle MD CHEMISTRY ORDERAB LES Performing Organization Address City/[facility]/ZIP Co de Phone Number [facility] [place] [address] * (ABNORMAL) Uric acid (12/28/2015 9:14 AM EDT) Uric Acid 11.4(H) 3.5 - 8.5 mg/dL [facility] Blood specimen (specimen) 12/28/2015 9:14 AM EDT 12/28/2015 9:21 AM EDT Narrative Resulting Agency Comment Spec In Lab Madhu Eagle MD CHEMISTRY ORDERAB LES Performing Organization Address [facility] Co de Phone Number [facility] [place] [address] * Tacrolimus level (12/28/2015 9:14 AM EDT) Tacrolimus 6.5 ng/mL [facility] Comment:Trough therapeutic: 5-15 ng/mL Blood specimen (specimen) 12/28/2015 9:14 AM EDT 12/28/2015 11:50 AM EDT Narrative Resulting Agency Comment Spec In Lab Madhu Eagle MD CHEMISTRY ORDERAB LES Performing Organization Address [facility] Co de Phone Number [facility] [place] [address] * Reticulocyte Count (12/28/2015 9:14 AM EDT) Reticulocyte % 1.0 0.5 - 2.4 % [facility] Retic Abs # 0.040 0.027 - 0.095 x10(6)/mcL [facility] Immature Retic% 6.1 2.3 - 15.9 % [facility] Reticulated Hgb 32.7 28.5 - 38.9 pg [facility] Immature Plt % 1.4 0.0 - 7.4 % [facility] Blood specimen (specimen) 12/28/2015 9:14 AM EDT 12/28/2015 9:21 AM EDT Narrative Resulting Agency Comment Spec In Lab Madhu Eagle MD HEMATOLOGY ORDERA BLES Performing Organization Address [facility] Co de Phone Number [facility] [place] [address] * Cholesterol, total (12/28/2015 9:14 AM EDT) Cholesterol, Total 172 <=199 mg/dL [facility] Comment: Recommendations of the NCEP Adult Treatment Panel for the following risk cutoff thresholds for the [place] population: Desirable: <200 mg/dL Borderline High: 200-239 mg/dL High: > or = 240 mg/dL Blood specimen (specimen) 12/28/2015 9:14 AM EDT 12/28/2015 9:21 AM EDT Narrative Resulting Agency Comment Spec In Lab Madhu Eagle MD CHEMISTRY ORDERAB LES Performing Organization Address [facility] Co de Phone Number [facility] [place] [address] * Protein/Creatinine Ratio, urine (12/28/2015 9:13 AM EDT) Creatinine, Urine 75 mg/dL [facility] Protein, Urine 9 0 - 12 mg/dL [facility] Protein / Creatinine Ratio, Urine 0.1 ratio [facility] Urine specimen (specimen) 12/28/2015 9:13 AM EDT 12/28/2015 9:31 AM EDT Narrative Resulting Agency Comment Spec In Lab Madhu Eagle MD URINE ORDERABLES [facility] [place] [address] * (ABNORMAL) Urinalysis with reflex Culture (12/28/2015 [...] LABORATORY Blood, Urine Dipstick Negative Negative mg/dL [facility] Ketone, Urine Dipstick Negative Negative mg/dL [facility] Nitrite, Urine Dipstick Negative Negative [facility] Leukocytes, Urine Dipstick Trace(A) Negative [facility] Appearance, Urine Dipstick Clear Clear [facility] Specific [place] Urine Automated 1.009 1.002 - 1.030 [facility] Color, Urine Dipstick Straw Yellow [facility] RBC, Urine <1 0 - 3 /HPF [facility] WBC, Urine 6(H) 0 - 3 /HPF [facility] Bacteria, Urine Rare(A) None /HPF [facility] Squamous Epithelial Cells, Urine <1 <=4 /HPF [facility] Reflex to Culture Yes [facility] Urine specimen (specimen) 12/28/2015 9:13 AM EDT 12/28/2015 9:31 AM EDT Narrative Resulting Agency Comment Spec In Lab Madhu Eagle MD URINE ORDERABLES [facility] [place] [address] documented in this encounter Visit Diagnoses Diagnosis Kidney replaced by transplant RAY (acute kidney injury) Acute kidney failure, unspecified Aftercare following organ transplant Prophylactic immunotherapy Need for prophylactic immunotherapy Kidney replaced by transplant RAY (acute kidney injury) Acute kidney failure, unspecified Aftercare following organ transplant Prophylactic immunotherapy Need for prophylactic immunotherapy documented in this encounter Care Teams Skin Care Therapist Relationship Specialty Start Date End Date Urbano Denis DO [address] [place] [address] PCP - General 09/03/12 03/17/22 Ruchi Valles RN Nurse Clinic Transplant Surgery 07/30/15 documented as of this encounter
--- OUTSIDE RECORDS SUMMARY | 2024-04-04 14:12 | XMS_ITS | Encounter Summary ---
Author Organization [facility] [place] [address] Care Team Providers Care [employer] Name Role Phone Urbano Denis DO Primary Care Provider [phone] Reason for Visit * Auth/Cert Specialty Diagnoses / Procedures Referred By Humberto t Referred To Contact Diagnoses RAY (acute kidney injury) RAY - RO REJECTION / SP RENAL TRANSPLANT Referral ID Status Reason Start Date Expiration Date Visits Re quested Visits Authorized [id number] 1 1 Encounter Details Date Type Department Care Team (Late st Contact Info) Description 01/03/2016 3:30 PM EDT Office Visit Cardiology at [address] [address] Byron Brown MD [facility] [place] [address] Acute renal failure, unspecified acute renal failure [...] PCP and referred for further evaluation at [facility] He underwent some testing including a head [...] PM EDT Office Visit Cardiology at [address] [address] Jay Urban MD [facility] [address] [place] [address] 04/15/2024 10:00 AM EDT Hospital Encounter Non-[place]vasive [place] [phone] Arrived documented as of this encounter Visit Diagnoses Diagnosis Acute renal failure, unspecified acute renal failure type documented in this encounter Care Teams [employer] Relationship Specialty Start Date End Date Adeel DO Urbano [address] [place] [address] PCP - General 09/03/12 03/17/22 Ruchi Valles RN Nurse Clinic Transplant Surgery 07/30/15 documented as of this encounter
--- OUTSIDE RECORDS SUMMARY | 2024-04-04 14:12 | XMS_ITS | Encounter Summary ---
Author Organization [facility] [place] [address] Care Team Providers Care Pickle Processor Name Role Phone Urbano Denis DO Primary Care Provider [phone] Reason for Visit * Auth/Cert Specialty Diagnoses / Procedures Referred By Humberto t Referred To Contact Diagnoses RAY (acute kidney injury) RAY - RO REJECTION / SP RENAL TRANSPLANT Referral ID Status Reason Start Date Expiration Date Visits Re quested Visits Authorized [id number] 1 1 Encounter Details Date Type Department Care Team (Latest Contact Info) Description 12/28/2015 9:00 AM EDT Laboratory Appointment Lab [address] [place] [phone] Kidney replaced by transplant Social History Tobacco [...] PM EDT Office Visit Cardiology at [address] [phone] Jay Urban MD [facility] [address] [place] [address] 04/15/2024 10:00 AM EDT Hospital Encounter Non-[place] [phone] Arrived documented as of this [...] Quant Blood Result (12/28/2015 9:14 AM EDT) Pathologist [facility] BKV Blood Result Positive [facility] BKV Blood Interp BK [...] DNA isolated from plasma was performed using [employer] BKV (ASR) [employer] and the [employer] SC[employer] 7500 FAST Real-Time PCR System. In addition, the ??PCR product sequence is confirmed using physical properties (melting curve analysis). This test was developed and its performance determined by the [facility]. It has not been cleared or approved by the U.S. Food and Drug Administration. This test is used for clinical purposes and should not be considered investigational or for research purposes. The Molecular Pathology Laboratory is certified by the Clinical Laboratory Improvement Act of 1988 and as such is allowed to perform high complexity clinical testing. [facility] Comment: [VERIFIED DATE]01.02.16 Verified By:Fatemeh Garcia (Electronic Signature) Blood specimen (specimen) 12/28/2015 9:14 AM EDT 12/28/2015 9:36 AM EDT Narrative Resulting Agency Comment Spec In Lab Tal Eagle MD HEMATOLOGY ORDERA BLES [facility] [place] [address] * Differential, Automated (12/28/2015 9:14 AM EDT) Pathologist [facility] Neutrophil % 71.1 % [facility] Neutrophil Absolute 5.05 1.50 - 6.30 x10(3)/mcL [facility] Lymph % 19.8 % [facility] Lymphocytes Abs 1.4 1.0 - 3.6 x10(3)/[facility] Monocyte % 4.1 % [facility] Monocyte Abs 0.3 0.2 - 1.0 x10(3)/[facility] Eos % 3.2 % [facility] Eosinophils Abs 0.2 0.0 - 0.5 x10(3)/[facility] Basophil % 1.5 % [facility] Baso Absolute 0.1 0.0 - 0.2 x10(3)/[facility] Immature Gran % 0.30 % [facility] Comment: Immature granulocytes(IG's)percentage and absolute count will include metamyelocytes, myelocytes, and promyelocytes. Blood smears from CBCs yielding IG's will be scanned manually for concordance. If this scan disagrees with the automated IG or if promyelocytes are noted, a manual differential will be performed. Immature Gran Absolute 0.02 0.00 - 0.05 x10(3)/[facility] Blood specimen (specimen) 12/28/2015 9:14 AM EDT 12/28/2015 9:21 AM EDT Narrative Resulting Agency Comment Spec In Lab Tal Eagle MD HEMATOLOGY ORDERA BLES [facility] [place] [address] * (ABNORMAL) Hemogram (12/28/2015 9:14 AM EDT) White Blood Cell 7.1 4.0 - 10.0 x10(3)/mc L [facility] Red Blood Cell 4.28(L) 4.63 - 6.08 x10(6)/mc L [facility] Hemoglobin 13.6(L) 13.7 - 17.5 gm/dL [facility] Hematocrit 38.9(L) 40.0 - 51.0 % [facility] Mean Cell Volume 90.9 79.0 - 92.0 fL [facility] Mean Cell Hemoglobin 31.8 25.6 - 32.2 pg [facility] Mean Cell Hemoglobin Concentration 35.0 32.0 - 36.5 gm/dL [facility] Platelet 279 145 - 370 x10(3)/mc L [facility] RDW Standard Deviation 45.7 35.0 - 46.0 fL [facility] RDW coefficient of variation 13.9 10.9 - 14.4 % [facility] Mean Platelet Volume 8.9(L) 9.0 - 12.0 fL [facility] Blood specimen (specimen) 12/28/2015 9:14 AM EDT 12/28/2015 9:21 AM EDT Narrative Resulting Agency Comment Spec In Lab Tal Eagle MD HEMATOLOGY ORDERA BLES [facility] [place] [id number] * (ABNORMAL) Comprehensive metabolic panel (non-fasting) (12/28/2015 9:14 AM EDT) Glucose 124 65 - 199 mg/dL [facility] Comment:Diabetes: >=200 mg/d L plus symptoms Blood Urea Nitrogen 51(H) 10 - 20 mg/dL [facility] Creatinine 7.29(H) 0.80 - 1.50 mg/dL [facility] Comment: Please note that the pediatric reference intervals supplied above were not validated at [facility]. Results from pediatric patients should be interpreted in conjunction to the patient's age, height and muscle mass. Sodium 138 135 - 145 mmol/L [facility] Potassium 5.2(H) 3.5 - 5.0 mmol/L [facility] [...] mmol/L [facility] Anion Gap 18(H) 5 - 15 mmol/L [facility] Calcium 9.3 8.5 - 10.5 mg/dL [facility] Protein, Total 7.7 6.1 - 8.0 gm/dL [facility] Albumin 4.1 3.2 - 5.2 gm/dL [facility] Aspartate Aminotransferase 16 0 - 39 unit/L [facility] Alanine Aminotransferase 11 0 - 55 unit/L [facility] Alkaline Phosphatase 74 40 - 120 unit/L [facility] Bilirubin, Total 0.7 0.2 - 1.3 mg/dL [facility] Bilirubin, Direct 0.2 0.0 - 0.3 mg/dL [facility] [...] the following links into your internet browser. [email or web address] Blood specimen (specimen) 12/28/2015 9:14 AM EDT 12/28/2015 9:21 AM EDT Narrative Resulting Agency Comment Spec In Lab Tal Eagle MD CHEMISTRY ORDERAB LES [facility] [place] [address] * (ABNORMAL) Magnesium (12/28/2015 9:14 AM EDT) Magnesium 0.67(L) 0.69 - 1.07 mmol/L [facility] Blood specimen (specimen) 12/28/2015 9:14 AM EDT 12/28/2015 9:21 AM EDT Narrative Resulting Agency Comment Spec In Lab Tal Eagle MD CHEMISTRY ORDERAB LES [facility] [place] [address] * (ABNORMAL) Phosphorus (12/28/2015 9:14 AM EDT) Phosphorus 6.0(H) 2.5 - 4.5 mg/dL [facility] Blood specimen (specimen) 12/28/2015 9:14 AM EDT 12/28/2015 9:21 AM EDT Narrative Resulting Agency Comment Spec In Lab Tal Eagle MD CHEMISTRY ORDERAB LES Performing Organization Address City/[facility]/ZIP Co de Phone Number [facility] [place] [address] * (ABNORMAL) Uric acid (12/28/2015 9:14 AM EDT) Uric Acid 11.4(H) 3.5 - 8.5 mg/dL [facility] Blood specimen (specimen) 12/28/2015 9:14 AM EDT 12/28/2015 9:21 AM EDT Narrative Resulting Agency Comment Spec In Lab Tal Eagle MD CHEMISTRY ORDERAB LES Performing Organization Address City/[facility]/ZIP Co de Phone Number [facility] [place] [address] * Tacrolimus level (12/28/2015 9:14 AM EDT) Tacrolimus 6.5 ng/mL [facility] Comment:Trough therapeutic: 5-15 ng/mL Blood specimen (specimen) 12/28/2015 9:14 AM EDT 12/28/2015 11:50 AM EDT Narrative Resulting Agency Comment Spec In Lab Tal Eagle MD CHEMISTRY ORDERAB LES Performing Organization Address [facility] de Phone Number [facility] [place] [address] * Reticulocyte Count (12/28/2015 9:14 AM EDT) Reticulocyte % 1.0 0.5 - 2.4 % [facility] Retic Abs # 0.040 0.027 - 0.095 x10(6)/mcL [facility] Immature Retic% 6.1 2.3 - 15.9 % [facility] Reticulated Hgb 32.7 28.5 - 38.9 pg [facility] Immature Plt % 1.4 0.0 - 7.4 % [facility] Blood specimen (specimen) 12/28/2015 9:14 AM EDT 12/28/2015 9:21 AM EDT Narrative Resulting Agency Comment Spec In Lab Tal Eagle MD HEMATOLOGY ORDERA BLES Performing Organization Address [facility] de Phone Number [facility] [place] [address] * Cholesterol, total (12/28/2015 9:14 AM EDT) Cholesterol, Total 172 <=199 mg/dL [facility] Comment: Recommendations of the NCEP Adult Treatment Panel for the following risk cutoff thresholds for the [place] population: Desirable: <200 mg/dL Borderline High: 200-239 mg/dL High: > or = 240 mg/dL Blood specimen (specimen) 12/28/2015 9:14 AM EDT 12/28/2015 9:21 AM EDT Narrative Resulting Agency Comment Spec In Lab Tal Eagle MD CHEMISTRY ORDERAB LES Performing Organization Address [facility] Co de Phone Number [facility] [place] [address] * (ABNORMAL) Urine culture (12/28/2015 9:13 AM EDT) Urine Culture 1,000-9,000 cfu/ml Gram Positive organisms , probable contaminant(A ) [facility] Urine specimen (specimen) 12/28/2015 9:13 AM EDT 12/28/2015 10:10 AM EDT Narrative Resulting Agency Comment Spec In Lab Tal Eagle MD MICROBIOLOGY - NERAL ORDERABLES Performing Organization Address City/[facility]/ZIP Co de Phone Number [facility] [place] [address] * Protein/Creatinine Ratio, urine (12/28/2015 9:13 AM EDT) Creatinine, Urine 75 mg/dL [facility] Protein, Urine 9 0 - 12 mg/dL [facility] Protein / Creatinine Ratio, Urine 0.1 ratio [facility] Urine specimen (specimen) 12/28/2015 9:13 AM EDT 12/28/2015 9:31 AM EDT Narrative Resulting Agency Comment Spec In Lab Tal Eagle MD URINE ORDERABLES Performing Organization Address City/[facility]/ZIP Co de Phone Number [facility] [place] [address] * (ABNORMAL) Urinalysis with reflex Culture (12/28/2015 9:13 AM EDT) Glucose, Urine Dipstick Negative Negative mg/dL [facility] [...] [facility] Leukocytes, Urine Dipstick Trace(A) Negative [facility] Appearance, Urine Dipstick Clear Clear [facility] Specific [place] Urine Automated 1.009 1.002 - 1.030 [facility] Color, Urine Dipstick Straw Yellow [facility] RBC, Urine <1 0 - 3 /HPF [facility] WBC, Urine 6(H) 0 - 3 /HPF [facility] Bacteria, Urine Rare(A) None /HPF [facility] Squamous Epithelial Cells, Urine <1 <=4 /HPF [facility] Reflex to Culture Yes [facility] Urine specimen (specimen) 12/28/2015 9:13 AM EDT 12/28/2015 9:31 AM EDT Narrative Resulting Agency Comment Spec In Lab Tal Eagle MD URINE ORDERABLES [facility] [place] [address] documented in this encounter Visit Diagnoses Diagnosis Kidney replaced by transplant documented in this encounter Care Teams Pickle Processor Relationship Specialty Start Date End Date Urbano Denis DO [address] [place] [address] PCP - General 09/03/12 03/17/22 Ruchi Valles RN Nurse Clinic Transplant Surgery 07/30/15 documented as of this encounter
--- OUTSIDE RECORDS SUMMARY | 2024-04-04 14:12 | XMS_ITS | Encounter Summary ---
Author Organization [facility] [place] [address] Care Team Providers Care Shuttle Hand Name Role Phone [place] Deins DO Primary Care Provider [phone] Encounter Details Date Type Department Care Team (Late st Contact Info) Description 12/29/2015 [place] [address] Nicholas Sim MD [facility] [place] [address] Social History Tobacco Use Types Packs/Day Years [...] EXTREMITY performed by Que Amaro MD at [facility] OR ??? Pro transplantation of kidney N/A 09/16/2015 @KIDNEY TRANSPLANT, WITHOUT RECIPIENT NEPHRECTOMY performed by Franko Larkin MD at [facility] OR ??? Pro transplant, prep cadaver renal graft N/A 09/16/2015 @PREPARATION CADAVERIC RENAL ALLOGRAFT performed by Franko Larkin MD at [facility] OR ??? N/A 09/16/2015 ORGAN ACQUISITION RENAL, CADAVERIC performed by Franko Larkin MD at [facility] OR Medications: Current Facility-Administered Medications on File [...] PM EDT Office Visit Cardiology at [address] [phone] Jay Urban MD [facility] [place] [place] [address] 04/15/2024 10:00 AM EDT Hospital Encounter Non-[place] [phone] Arrived documented as of this encounter Visit Diagnoses Not on filedocumented in this encounter Care Teams Shuttle Hand Relationship Specialty Start Date End Date [place] Denis DO [address] [place] [address] [address] PCP - General 09/03/12 03/17/22 Ruchi Valles RN Nurse Clinic Transplant Surgery 07/30/15 documented as of this encounter
--- OUTSIDE RECORDS SUMMARY | 2024-04-04 14:12 | XMS_ITS | Encounter Summary ---
[place] [address] Care Team Providers Care Software Licensing Specialist Name Role Phone Albania Denis DO Primary Care Provider [phone] Reason for Referral * Surgical (Routine) - Specialty Diagnoses / Procedures Referred By Humberto flor Referred To Contact Radiology Diagnoses Kidney transplant infection Francisco Valencia MD [facility] [place] [address] [place] [address] Referral ID Status Reason Start Date Expiration Date Visits Requested Visits Authorized [id number] Specialty Service Requested 01/02/2016 01/01/2017 1 1 Reason for Visit * Auth/Cert Specialty Diagnoses / Procedures Referred By Humberto flor Referred To Contact Diagnoses RAY (acute kidney injury) RAY - RO REJECTION / SP RENAL TRANSPLANT Referral ID Status Reason Start Date Expiration Date Visits Re quested Visits Authorized [id number] 1 1 Encounter Details Date Type Department Care Team (Late st Contact Info) Description 12/28/2015 11:19 AM EDT - 01/03/2016 10:40 AM EDT Hospital Encounter [address] [place] [address] Tal Eagle MD [facility] [place] [address] Que Amaro MD [facility] [place] [address] Kidney transplant infection Discharge Disposition: Home Social [...] Ethel Akins Patient Age: 65 y.o. Language: Palauan Race: White Ethnicity: Not nor Admit date: [...] Inpatient Provider Contact Information: Que Amaro MD [facility] Transplant [phone] Discharge Diagnoses (Hospital Problems) and Secondary Diagnoses [...] Hospital Course: Mr. Akins was admitted to [facility] from the Transplant clinic. Fludrocortisone discontinued. Transplant kidney U/S showed increased pelvicaliectasis with mild dilation of the proximal ureter. On HD #3, IR was consulted and placed transplant kidney 8 Jamaican nephrostomy tube. Urology was consulted and recommended anterior nephrostogram in IR, which was performed on HD #5. 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 With this, he began to [...] is requested. ?? Technique: Review of the [facility] US exam shows mild hydronephrosis; no perinephric [...] patient was prepped anddraped in supine position. Gauge Operator image obtained. Through the existing left pelvic [...] Multidisciplinary Team Recommendations: -NUTRITION TEAM: The transplant associate professor of theatre has reviewed your dietary limitations (fluid and food)and has provided you with standard post-op instructions. The associate professor of theatre recommendations were as follows: Regular diet, but [...] to have your blood drawn. General Instructions [facility] Vascular and Interventional Radiology Discharge [...] is during regular office hours, please call [phone]. If it is after regular office hours, or on weekends or holidays, please call [phone] and ask to speak to the Natural History Collections Curator chronometer repairer for Interventional Radiology. You have received medication [...] Phone 01/03/2016 10:00 AM LAB, THREE L [facility] Lab 01/03/2016 11:00 AM Tulio Marcelo MD Gastroenterology [phone] 01/03/2016 3:30 PM Byron Brown MD Cardiology [phone] 09/15/2016 9:00 AM LAB, THREE L [facility] Lab 09/15/2016 10:00 AM Tal Eagle MD Transplant [phone] Future Orders Complete By Expires Basic Metabolic Panel (non-fasting) [LAB15 Custom] 01/04/2016 01/02/2017 Process Instructions: INCLUDES: Calcium, BUN, Creat, GFR, Glucose, Lytes Scheduling Instructions: Comments: Questions: Magnesium [MHJ533 Custom] 01/04/2016 01/02/2017 Process Instructions: Scheduling Instructions: Comments: Questions: Phosphorus [KLY316 Custom] 01/04/2016 01/02/2017 Process Instructions: Scheduling Instructions: [...] Yes Content of discussion: Referral to Urology [IUX140 Custom] As directed Process Instructions: If no [...] the transplant clinic: Solid Organ Transplant Department [facility], [address] [address] Future Appointments Date Time Provider Department Center 01/03/2016 10:00 AM LAB[facility] 01[facility]03/2016 11:00 AM Tulio Marcelo MD [facility] 01/03/2016 3:30 PM Byron Brown MD [facility] 09/15/2016 9:00 AM LAB, [facility] L [facility] 09/15/2016 10:00 AM Tal Eagle MD Le[facility] [...] the message. You can also reach the air export coordinator after hours by calling (ask for the air export coordinator on-call). Discharge References/Attachments None documented in this encounter Discharge Instructions * Discharge Instructions* Zehra Tyson RN - 12/29/2015 3:51 PM EDT [facility] Vascular and Interventional Radiology Discharge [...] is during regular office hours, please call [phone]. If it is after regular office hours, or on weekends or holidays, please call [phone] and ask to speak to the Natural History Collections Curator chronometer repairer for Interventional Radiology. You have received medication [...] 5064 Office of Care Management (OCM) / Chief Port Director(CM)/ Initial Assessment Discussed patient with Provider Team [...] Lives with spouse Mara who was primary health care coach post kidney [id number] weeks ago. ?? ADVANCE DIRECTIVES: None on file. Full Code. ? HEALTH /PRESCRIPTION COVERAGE: Active Insurance as of 11/12/2015 ? Primary Coverage ? Payor?? Plan?? Insurance Group?? Employer/Plan Group? MEDICARE?? MEDICARE PART A & B? Payor Plan Address?? Payor Plan Phone Number?? Effective From?? Effective To? [address]?? [phone]?? 08/06/2013? [place] [address]? Subscriber Name?? Subscriber Date?? Member ID? ETHEL AKINS?? 1950?? [id number]? Secondary Coverage ? Payor?? Plan?? Insurance Group?? Employer/Plan Group? BLUE CROSS BLUE SHIELD OOS?? BCBS NATIONAL OOS PPO?? [id number]? Payor Plan Address?? Payor Plan Phone Number?? Effective From?? Effective To? [address]?? [phone]?? 11/03/2013? [place] [address]? Subscriber Name?? Subscriber Date?? Member ID? ETHEL AKINS?? 1950?? [id number]? Visit Level Coverage Information ? Payor?? Plan?? Plan Phone?? Plan Street?? Plan City?? Plan State?? Plan Zip? MEDICARE?? MEDICARE PART A & B?? [phone]?? [address] [place] [address]?? [place]?? [place] [21]?? [address]? CURRENT HOME/COMMUNITY SERVICES/EQUIPMENT: DME:[facility] - Not happy with 2/2 co-pay issues and delivery of supplies not used. Home Health Agency: [facility] - Not happy with 2/2 SN came 3 times and never came back or explained why services were no longer needed. Other: [facility] Transplant Organ Clinic ?? KEG FILLER REFERRAL: Not needed at this time. ? PRIMARY CARE PHYSICIAN: ALBANIA DENIS, DO [address] / [facility] [address] ?? POTENTIAL DISCHARGE NEEDS: Unknown at this time.?? ANTICIPATED BARRIERS TO DISCHARGE: None ?? TRANSPORTATION @ D/C: Mara via car ?? PLAN: CM will continue to monitor progress, follow for continuity of care and assist with dischargeplanning while hospitalized ?? * Andrade Mendez RN - 12/31/2015 2:56 PM EDT [facility] DATABASE Name: ETHEL AKINS Date of : 1950 AGE 65 y.o. Address: [address] [place] [phone] (home) [phone] (work) Mobile: Telephone Information: Referring Provider: No [...] EXTREMITY performed by Que Amaro MD at [facility] OR ??? Pro transplantation of kidney N/A 09/16/2015 @KIDNEY TRANSPLANT, WITHOUT RECIPIENT NEPHRECTOMY performed by Franko Larkin MD at [facility] OR ??? Pro transplant, prep cadaver renal graft N/A 09/16/2015 @PREPARATION CADAVERIC RENAL ALLOGRAFT performed by Franko Larkin MD at [facility] OR ??? N/A 09/16/2015 ORGAN ACQUISITION RENAL, CADAVERIC performed by Franko Larkin MD at [facility] OR Date/Procedure? Med's given/comments 01/08/2015: Tunneled [...] of PCN into transplant kidney Responsible Attending: Que Amaro,* Problem List: Active Hospital Problems Diagnosis [...] re-starting after procedure today 5) Spoke to critical care rn for possible VNA at discharge. 6) Prograf [...] Pain control with Tylenol IV and Dilaudid PARI MUTUEL TICKET SELLER CV: No acute issues, continue Plavix 75, [...] of : 1950 AGE 65 y.o. Address: [address] [place] [phone] (home) [phone] (work) Mobile: Telephone Information: Referring Provider: No [...] EXTREMITY performed by Que Amaro MD at [facility] OR ??? Pro transplantation of kidney N/A 09/16/2015 @KIDNEY TRANSPLANT, WITHOUT RECIPIENT NEPHRECTOMY performed by Franko Larkin MD at [facility] OR ??? Pro transplant, prep cadaver renal graft N/A 09/16/2015 @PREPARATION CADAVERIC RENAL ALLOGRAFT performed by Franko Larkin MD at [facility] OR ??? N/A 09/16/2015 ORGAN ACQUISITION RENAL, CADAVERIC performed by Franko Larkin MD at [facility] OR Date/Procedure? Med's given/comments 01/08/2015: Tunneled [...] informed this patient that they require a water truck driver to be present and in the building to drive them home after this procedure. In the absence of a water truck driver, IR will not be able [...] Pain control with Tylenol IV and Dilaudid PARI MUTUEL TICKET SELLER CV: No acute issues, continue Plavix 75, [...] 12/28/2015 8:17 PM EDT Patient arrived to [facility] from clinic/ultrasound at 1630. Patient alert, oriented, ambulatory. VSS.Patient in no pain, appears comfortable. Patient oriented to room. Patient met with Dr. Saravia, and reason for placing omran catheter was explained. Urethral catheter placed at [...] Bell RD - 12/28/2015 4:04 PM EDT [facility] Post Transplant Nutrition Follow Up Date: 12/28/2015 Patient: Ethel Aknis Transplant Date: 09/16/15 [facility] organ UNOS diagnosis: Transplant: Mr. Ethel Akins [...] Value Date CHLPL 172 12/28/2015 Assessment: This television script writer reviewed patient's blood chemistries at clinic visit; patient admitted. This television script writer suggests Renal, JAMESON diet rx since serum K+ and Phos also elevated, suggesting acute rejection. Possiblecauses are to be evaluated. Plan: Renal, JAMESON diet. Follow up with patient on Thursday with nutrition intervention prn. documented in this encounter H&P Notes * Tal Eagle MD - 12/28/2015 1:05 PM EDT [facility] Department of Transplant Surgery Inpatient Admission Note [...] EXTREMITY performed by Que Amaro MD at [facility] OR ??? Pro transplantation of kidney N/A 09/16/2015 @KIDNEY TRANSPLANT, WITHOUT RECIPIENT NEPHRECTOMY performed by Franko Larkin MD at [facility] OR ??? Pro transplant, prep cadaver renal graft N/A 09/16/2015 @PREPARATION CADAVERIC RENAL ALLOGRAFT performed by Franko Larkin MD at [facility] OR ??? N/A 09/16/2015 ORGAN ACQUISITION RENAL, CADAVERIC performed by Franko Larkin MD at [facility] OR ALL: No Known Allergies MED: No [...] Negative mcL Appearance UA Clear Clear Spec [place] UA 1.009 1.002 - 1.030 Color UA [...] Strengthening -- -- Self-Care Promotion -- -- Stephens Fall Risk History of [...] independent Muscle Strengthening -- Self-Care Promotion -- Stephnes Fall Risk History of Falling -- Secondary [...] NPO this AM for IR procedure, IR GRAIN TRIMMER up to tell pt that this procedure [...] EXTREMITY performed by Que Amaro MD at [facility] OR ??? Pro transplantation of kidney N/A 09/16/2015 @KIDNEY TRANSPLANT, WITHOUT RECIPIENT NEPHRECTOMY performed by Franko Larkin MD at [facility] OR ??? Pro transplant, prep cadaver renal graft N/A 09/16/2015 @PREPARATION CADAVERIC RENAL ALLOGRAFT performed by Franko Larkin MD at [facility] OR ??? N/A 09/16/2015 ORGAN ACQUISITION RENAL, CADAVERIC performed by Franko Larkin MD at [facility] OR Social History: Social History [...] Outcome: Ongoing (Interventions Implemented as Appropriate) 12/30/15 0456 Plan of Care Review Plan of Care [...] PM EDT Office Visit Cardiology at [address] [place] [place] [address] Jay Urban MD [facility] [place] [address] 04/15/2024 10:00 AM EDT Hospital Encounter Non-Invasive Cardiology Lab [facility] [place] [phone] Arrived Scheduled Orders Name Type Priority Associated [...] 12/29/2015 8:30 AM EDT TYPE AND SCREEN (MC/CGP/MOSES) STAT 12/29/2015 8:30 AM EDT HEMOGRAM Routine [...] LABORATORY Neutrophil Absolute 3.45 1.50 - 6.30 x10(3)/[facility] LABORATORY Lymph % 19.9 % [facility] Lymphocytes Abs 0.9(L) 1.0 - 3.6 x10(3)/[facility] LABORATORY Monocyte % 1.7 % [facility] Monocyte Abs 0.1(L) 0.2 - 1.0 x10(3)/[facility] LABORATORY Eos % 3.0 % [facility] Eosinophils Abs 0.1 0.0 - 0.5 x10(3)/[facility] LABORATORY Basophil % 1.3 % [facility] Baso Absolute 0.1 0.0 - 0.2 x10(3)/[facility] LABORATORY Immature Gran % 0.20 % [facility] Comment: Immature granulocytes(IG's)percentage and absolute count will include metamyelocytes, myelocytes, and promyelocytes. Blood smears from CBCs yielding IG's will be scanned manually for concordance. If this scan disagrees with the automated IG or if promyelocytes are noted, a manual differential will be performed. Immature Gran Absolute 0.01 0.00 - 0.05 x10(3)/[facility] LABORATORY Blood specimen (specimen) 01/03/2016 7:49 AM EDT 01/03/2016 8:40 AM EDT Narrative Resulting Agency Comment Spec In Lab Tal Eagle MD HEMATOLOGY ORDERA BLES [facility] [place] [address] * (ABNORMAL) Hemogram (01/03/2016 7:49 AM EDT) [facility] White Blood Cell 4.7 4.0 - 10.0 x10(3)/[facility] LABORATORY Red Blood Cell 4.31(L) 4.63 - 6.08 x10(6)/mc L [facility] Hemoglobin 13.7 13.7 - 17.5 gm/dL [facility] Hematocrit 39.7(L) 40.0 - 51.0 % [facility] Mean Cell Volume 92.1(H) 79.0 - 92.[address] [facility] Mean Cell Hemoglobin 31.8 25.6 - 32.[address] [facility] Mean Cell Hemoglobin Concentration 34.5 32.0 - 36.5 gm/dL [facility] Platelet 202 145 - 370 x10(3)/mc L [facility] RDW Standard Deviation 46.1(H) 35.0 - 46.[address] [facility] RDW coefficient of variation 13.8 10.9 - 14.4 % [facility] Mean Platelet Volume 9.5 9.0 - 12.[address] [facility] Blood specimen (specimen) 01/03/2016 7:49 AM EDT 01/03/2016 8:40 AM EDT Narrative Resulting Agency Comment Spec In Lab Tal Eagle MD HEMATOLOGY ORDERA BLES Performing Organization Address [facility] Co de Phone Number [facility] [place] [address] * (ABNORMAL) Phosphorus (01/03/2016 7:49 AM EDT) Phosphorus 2.1(L) 2.5 - 4.5 mg/dL [facility] Blood specimen (specimen) 01/03/2016 7:49 AM EDT 01/03/2016 8:40 AM EDT Narrative Resulting Agency Comment Spec In Lab Tal Eagle MD CHEMISTRY ORDERAB LES Performing Organization Address [facility] Co de Phone Number [facility] [place] [address] * (ABNORMAL) Basic Metabolic Panel (non-fasting) (01/03/2016 7:49 AM EDT) Glucose 176 65 - 199 mg/dL [facility] Comment:Diabetes: >=200 mg/d L plus symptoms Blood Urea Nitrogen 27(H) 10 - 20 mg/dL [facility] Creatinine 2.84(H) 0.80 - 1.50 mg/dL [facility] Comment: Please note that the pediatric reference intervals supplied above were not validated at [facility]. Results from pediatric patients [...] questions. Chloride 103 98 - 107 mmol/L [facility] Carbon Dioxide 22 22 - 31 mmol/L [facility] Anion Gap 16(H) 5 - 15 mmol/L [facility] Calcium 9.2 8.5 - 10.5 mg/dL [facility] Est Glomerular Filtration Rate 22(L) >=60 [facility] Comment: This [...] the following links into your internet browser. [email or web address] Blood specimen (specimen) 01/03/2016 7:49 AM EDT 01/03/2016 8:40 AM EDT Narrative Resulting Agency Comment Spec In Lab Tal Eagle MD CHEMISTRY ORDERAB LES Performing Organization Address [facility]/ZIP Co de Phone Number [facility] [place] [address] * (ABNORMAL) Magnesium (01/03/2016 7:49 AM EDT) Magnesium 0.68(L) 0.69 - 1.07 mmol/L [facility] Blood specimen (specimen) 01/03/2016 7:49 AM EDT 01/03/2016 8:40 AM EDT Narrative Resulting Agency Comment Spec In Lab Tal Eagle MD CHEMISTRY ORDERAB LES Performing Organization Address [facility]/ZIP Co de Phone Number [facility] [place] [address] * HCV Genotype (01/02/2016 3:59 PM EDT) [...] of HCV genotype was carried out using KwiClick-8 detection system. Method: Plasma was initially subjected to quantitative RT-PCR using the Kirsten NIK Ampliprep/NIK Taqman HCV assay. The HCV genotyping was carried out using AMENDIA XT-8 detection system that targets 5? -untranslated region of the HCV genome. The amplicon from the Kirsten assay served as a template for the nested PCR followed by a direct analysis on the Web and Rank XT-8 detection system for the identification of HCV genotypes. The genotypes/subtypes detected by this method include 1a, 1b, 2a/c, 2b, 3, 4, 5 and 6a/b. This test was validated and its performance characteristics determined by the Molecular Pathology Laboratory at [facility]. It has not been cleared or approved [...] 5, and 6. Clin Gastroenterol Hepatol. 2005; 3:D73-D577. Miner JS, Palomo E, Sole D, Elder AJ, Richy ME. Current and emerging antiviral treatments for hepatitis C infection. Br J Clin Pharmacol. 2012 Feb 13. [Epub ahead of print] [facility] Comment: [VERIFIED DATE]01.15.16 Verified By:Nella Evans (Electronic Signature) Blood specimen (specimen) 01/02/2016 3:59 PM EDT 01/08/2016 8:06 AM EDT Narrative Resulting Agency Comment Spec In Lab Que Amaro MD HEMATOLOGY ORD ERABLES [facility] [place] [address] * Hepatitis C RNA, quantitative, PCR (01/02/2016 3:59 PM EDT) HCV Viral Load 604,635 IU/mL [facility] HCV Viral Load Result: [id number] IU/mL Indication for Study: Hepatitis C Infection Analysis: A quantitiative real time reverse transcriptase PCR assay was performed on extracted viral RNA for the purpose of quantification. Sample: plasma (1 mL minimum volume) Method: Kirsten Nik TaqMAN 48 HCV Linear Range: 15 IU/mL - 100,000,000IU/mL (95% CI) Note: This assay is being performed in the [facility] Molecular Pathology Laboratory. Gibson Good, Ph.D. Director, Molecular Pathology [facility] Comment: [VERIFIED DATE]01.09.16 Verified By:Fatemeh Garcia (Electronic Signature) Blood specimen (specimen) 01/02/2016 3:59 PM EDT 01/08/2016 8:06 AM EDT Narrative Resulting Agency Comment Spec In Lab Que Amaro MD MOLECULAR ROCHELLE JENNINGS Performing Organization Address [facility] de Phone Number [facility] [place] [address] * Prothrombin Time (01/02/2016 3:59 PM EDT) Pathologist [facility] Prothrombin Time 13.6 12.0 - 15.0 sec [...] [facility] Blood specimen (specimen) 01/02/2016 3:59 PM EDT 01/02/2016 4:20 PM EDT Narrative Resulting Agency Comment Spec In Lab Que Amaro MD HEMATOLOGY ORD AMANDABLES Performing Organization Address [facility] Co de Phone Number [facility] [place] [address] * (ABNORMAL) Differential, Automated (01/02/2016 8:10 AM EDT) Pathologist [facility] Neutrophil % 72.5 % [facility] Neutrophil Absolute 4.09 1.50 - 6.30 x10(3)/mc L [facility] Lymph % 21.6 % [facility] Lymphocytes Abs 1.2 1.0 - 3.6 x10(3)/mc L [facility] Monocyte % 1.4 % [facility] Monocyte Abs 0.1(L) 0.2 - 1.0 x10(3)/[facility] LABORATORY Eos % 3.4 % [facility] Eosinophils Abs 0.2 0.0 - 0.5 x10(3)/[facility] LABORATORY Basophil % 0.9 % [facility] Baso Absolute 0.0 0.0 - 0.2 x10(3)/[facility] LABORATORY Immature Gran % 0.20 % [facility] Comment: Immature granulocytes(IG's)percentage and absolute count will include metamyelocytes, myelocytes, and promyelocytes. Blood smears from CBCs yielding IG's will be scanned manually for concordance. If this scan disagrees with the automated IG or if promyelocytes are noted, a manual differential will be performed. Immature Gran Absolute 0.01 0.00 - 0.05 x10(3)/[facility] LABORATORY Blood specimen (specimen) 01/02/2016 8:10 AM EDT 01/02/2016 8:16 AM EDT Narrative Resulting Agency Comment Spec In Lab Tal Eagle MD HEMATOLOGY ORDERA BLES [facility] [place] [address] * (ABNORMAL) Hemogram (01/02/2016 8:10 AM EDT) White Blood Cell 5.6 4.0 - 10.0 x10(3)/[facility] LABORATORY Red Blood Cell 4.44(L) 4.63 - 6.08 x10(6)/[facility] LABORATORY Hemoglobin 13.9 13.7 - 17.5 gm/dL [facility] Hematocrit 40.1 40.0 - 51.0 % [facility] Mean Cell Volume 90.3 79.0 - 92.[address] [facility] Mean Cell Hemoglobin 31.3 25.6 - 32.[address] [facility] Mean Cell Hemoglobin Concentration 34.7 32.0 - 36.5 gm/dL [facility] Platelet 230 145 - 370 x10(3)/mc L [facility] RDW Standard Deviation 45.1 35.0 - 46.[address] [facility] RDW coefficient of variation 13.7 10.9 - 14.4 % [facility] Mean Platelet Volume 9.2 9.0 - 12.[address] [facility] Blood specimen (specimen) 01/02/2016 8:10 AM EDT 01/02/2016 8:16 AM EDT Narrative Resulting Agency Comment Spec In Lab Tal Eagle MD HEMATOLOGY ORDERA BLES Performing Organization Address [facility] Co de Phone Number [facility] [place] [address] * Phosphorus (01/02/2016 8:10 AM EDT) Phosphorus 2.8 2.5 - 4.5 mg/dL [facility] Blood specimen (specimen) 01/02/2016 8:10 AM EDT 01/02/2016 8:16 AM EDT Narrative Resulting Agency Comment Spec In Lab Tal Eagle MD CHEMISTRY ORDERAB LES Performing Organization Address [facility] Co de Phone Number [facility] [place] [address] * (ABNORMAL) Basic Metabolic Panel (non-fasting) (01/02/2016 8:10 AM EDT) Glucose 141 65 - 199 mg/dL [facility] Comment:Diabetes: >=200 mg/d L plus symptoms Blood Urea Nitrogen 33(H) 10 - 20 mg/dL [facility] Creatinine 3.36(H) 0.80 - 1.50 mg/dL [facility] Comment: Please note that the pediatric reference intervals supplied above were not validated at [facility] [place]. Results from pediatric patients should be interpreted in conjunction to the patient's age, height and muscle mass. Sodium 136 135 - 145 mmol/L [facility] Est Glomerular Filtration Rate 18(L) >=60 [facility] Comment: This [...] the following links into your internet browser. [email or web address] Blood specimen (specimen) 01/02/2016 8:10 AM EDT 01/02/2016 8:16 AM EDT Narrative Resulting Agency Comment Spec In Lab Tal Eagle MD CHEMISTRY ORDERAB LES [facility] [place] [address] * Magnesium (01/02/2016 8:10 AM EDT) Magnesium 0.70 0.69 - 1.07 mmol/L [facility] Blood specimen (specimen) 01/02/2016 8:10 AM EDT 01/02/2016 8:16 AM EDT Narrative Resulting Agency Comment Spec In Lab Tal Eagle MD CHEMISTRY ORDERAB LES Performing Organization Address City/[facility]/ZIP Co de Phone Number [facility] [place] [address] * Tacrolimus level (01/02/2016 8:10 AM EDT) Tacrolimus 9.1 ng/mL [facility] Comment:Trough therapeutic: 5-15 ng/mL Blood specimen (specimen) 01/02/2016 8:10 AM EDT 01/02/2016 11:39 AM EDT Narrative Resulting Agency Comment Spec In Lab Que Amaro MD CHEMISTRY ORDE RABLES Performing Organization Address [facility] Co de Phone Number [facility] [place] [address] * IR all procedures (01/01/2016 5:01 PM [...] was prepped and draped in supine position. Gauge Operator image obtained. Through the existing left pelvic [...] Absolute 3.89 1.50 - 6.30 x10(3)/mc L [facility] Lymph % 23.4 % [facility] Lymphocytes Abs 1.3 1.0 - 3.6 x10(3)/mc L [facility] Monocyte % 1.4 % [facility] Monocyte Abs 0.1(L) 0.2 - 1.0 x10(3)/mc L [facility] Eos % 4.8 % [facility] Eosinophils Abs 0.3 0.0 - 0.5 x10(3)/mc L [facility] Basophil % 1.2 % [facility] Baso Absolute [...] Absolute 0.01 0.00 - 0.05 x10(3)/ L [facility] Blood specimen (specimen) 01/01/2016 6:22 AM EDT 01/01/2016 6:31 AM EDT Narrative Resulting Agency Comment Spec In Lab Tal Eagle MD HEMATOLOGY ORDERA BLES Performing Organization Address City/State/[facility] Co de Phone Number [facility] [place] [address] * (ABNORMAL) Hemogram (01/01/2016 6:22 AM EDT) White Blood Cell 5.6 4.0 - 10.0 x10(3)/ L [facility] Red Blood Cell 4.32(L) 4.63 - 6.08 x10(6)/mc L [facility] Hemoglobin 13.4(L) 13.7 - 17.5 gm/dL [facility] Hematocrit 38.7(L) 40.0 - 51.0 % [facility] Mean Cell Volume 89.6 79.0 - 92.[address] [facility] Mean Cell Hemoglobin 31.0 25.6 - 32.[address] [facility] Mean Cell Hemoglobin Concentration 34.6 32.0 - 36.5 gm/dL [facility] Platelet 243 145 - 370 x10(3)/ L [facility] RDW Standard Deviation 45.1 35.0 - 46.[address] [facility] RDW coefficient of variation 13.6 10.9 - 14.4 % [facility] Mean Platelet Volume 8.8(L) 9.0 - 12.[address] [facility] Blood specimen (specimen) 01/01/2016 6:22 AM EDT 01/01/2016 6:31 AM EDT Narrative Resulting Agency Comment Spec In Lab Tal Eagle MD HEMATOLOGY ORDERA BLES Performing Organization Address [facility]/ZIP Co de Phone Number [facility] [place] [address] * Phosphorus (01/01/2016 6:22 AM EDT) Phosphorus 3.5 2.5 - 4.5 mg/dL [facility] Blood specimen (specimen) 01/01/2016 6:22 AM EDT 01/01/2016 6:31 AM EDT Narrative Resulting Agency Comment Spec In Lab Tal Eagle MD CHEMISTRY ORDERAB LES Performing Organization Address [facility] Co de Phone Number [facility] [place] [address] * (ABNORMAL) Basic Metabolic Panel (non-fasting) (01/01/2016 6:22 AM EDT) Glucose 119 65 - 199 mg/dL [facility] Comment:Diabetes: >=200 mg/d L plus symptoms Blood Urea Nitrogen 35(H) 10 - 20 mg/dL [facility] Creatinine 3.64(H) 0.80 - 1.50 mg/dL [facility] Comment: Please note that the pediatric reference intervals supplied above were not validated at [facility]. Results from pediatric patients [...] mmol/L [facility] Carbon Dioxide 22 22 - 31 mmol/L [facility] Anion Gap 15 5 - 15 mmol/L [facility] Calcium 9.1 8.5 - 10.5 mg/dL [facility] Est Glomerular Filtration Rate 17(L) >=60 [facility] Comment: This [...] the following links into your internet browser. [email or web address] Blood specimen (specimen) 01/01/2016 6:22 AM EDT 01/01/2016 6:31 AM EDT Narrative Resulting Agency Comment Spec In Lab Tal Eagle MD CHEMISTRY ORDERAB LES Performing Organization Address City/[facility] Co de Phone Number [facility] [place] [address] * Magnesium (01/01/2016 6:22 AM EDT) Magnesium 0.74 0.69 - 1.07 mmol/L [facility] Blood specimen (specimen) 01/01/2016 6:22 AM EDT 01/01/2016 6:31 AM EDT Narrative Resulting Agency Comment Spec In Lab Tal Eagle MD CHEMISTRY ORDERAB LES Performing Organization Address City/[facility]/ZIP Co de Phone Number [facility] [place] [address] * Tacrolimus level (12/31/2015 8:00 AM EDT) Tacrolimus 6.5 ng/mL [facility] Comment:Trough therapeutic: 5-15 ng/mL Blood specimen (specimen) 12/31/2015 8:00 AM EDT 12/31/2015 11:45 AM EDT Narrative Resulting Agency Comment Spec In Lab Tal Eagle MD CHEMISTRY ORDERAB LES [facility] [place] [address] * (ABNORMAL) Differential, Automated (12/31/2015 7:59 AM EDT) Pathologist [facility] Neutrophil % 76.3 % [facility] Neutrophil Absolute 4.99 1.50 - 6.30 x10(3)/ L [facility] Lymph % 17.1 % [facility] Lymphocytes Abs 1.1 1.0 - 3.6 x10(3)/ L [facility] Monocyte % 2.0 % [facility] Monocyte Abs 0.1(L) 0.2 - 1.0 x10(3)/ L [facility] Eos % 3.2 % [facility] Eosinophils Abs 0.2 0.0 - 0.5 x10(3)/ L [facility] Basophil % 1.2 % [facility] Baso Absolute 0.1 0.0 - 0.2 x10(3)/ L [facility] Immature [...] [facility] Blood specimen (specimen) 12/31/2015 7:59 AM EDT 12/31/2015 8:10 AM EDT Narrative Resulting Agency Comment Spec In Lab Tal Eagle MD HEMATOLOGY ORDERA BLES Performing Organization Address City/[facility]/ZIP Co de Phone Number [facility] [place] [address] * (ABNORMAL) Hemogram (12/31/2015 7:59 AM EDT) White Blood Cell 6.5 4.0 - 10.0 x10(3)/mc L [facility] Red Blood Cell 4.51(L) 4.63 - 6.08 x10(6)/mc L [facility] Hemoglobin 14.2 13.7 - 17.5 gm/dL [facility] Hematocrit 40.8 40.0 - 51.0 % [facility] Mean Cell Volume 90.5 79.0 - 92.[address] [facility] Mean Cell Hemoglobin 31.5 25.6 - 32.[address] [facility] Mean Cell Hemoglobin Concentration 34.8 32.0 - 36.5 gm/dL [facility] Platelet 273 145 - 370 x10(3)/mc L [facility] RDW Standard Deviation 46.1(H) 35.0 - 46.[address] [facility] RDW coefficient of variation 14.0 10.9 - 14.4 % [facility] Mean Platelet Volume 9.1 9.0 - 12.[address] [facility] Blood specimen (specimen) 12/31/2015 7:59 AM EDT 12/31/2015 8:10 AM EDT Narrative Resulting Agency Comment Spec In Lab Tal Eagle MD HEMATOLOGY ORDERA BLES Performing Organization Address [facility] Co de Phone Number [facility] [place] [address] * Phosphorus (12/31/2015 7:59 AM EDT) Phosphorus 3.4 2.5 - 4.5 mg/dL [facility] Blood specimen (specimen) 12/31/2015 7:59 AM EDT 12/31/2015 8:10 AM EDT Narrative Resulting Agency Comment Spec In Lab Tal Eagle MD CHEMISTRY ORDERAB LES [facility] [place] [address] * (ABNORMAL) Basic Metabolic Panel (non-fasting) (12/31/2015 7:59 AM EDT) Glucose 126 65 - 199 mg/dL [facility] Comment:Diabetes: >=200 mg/d L plus symptoms Blood Urea Nitrogen 39(H) 10 - 20 mg/dL [facility] Creatinine 4.36(H) 0.80 - 1.50 mg/dL [facility] Comment: result [id number] Please note that the pediatric reference intervals supplied above were not validated at [facility]. Results from pediatric patients should be interpreted in conjunction to the patient's age, height and muscle mass. Sodium 139 135 - 145 mmol/L [facility] Potassium 4.3 3.5 - 5.0 mmol/L [facility] Comment: Please note: ??Patients with WBC >100,000 may have falsely elevated Potassium levels. ??For accurate Potassium quantification in these patients send serum separator tube (gold top) for subsequent determinations. ??Contact the Clinical Chemistry Laboratory if there are any questions. Chloride 102 98 - 107 mmol/L [facility] Carbon Dioxide 21(L) 22 - 31 mmol/L [facility] Anion Gap 16(H) 5 - 15 mmol/L [facility] Calcium 9.6 8.5 - 10.5 mg/dL [facility] Est Glomerular Filtration Rate 14(L) >=60 [facility] Comment: This [...] the following links into your internet browser. [email or web address] Blood specimen (specimen) 12/31/2015 7:59 AM EDT 12/31/2015 8:10 AM EDT Narrative Resulting Agency Comment Spec In Lab Tal Eagle MD CHEMISTRY ORDERAB LES Performing Organization Address [facility]/ZIP Co de Phone Number [facility] [place] [address] * Magnesium (12/31/2015 7:59 AM EDT) [facility] Magnesium 0.75 0.69 - 1.07 mmol/L [facility] Blood specimen (specimen) 12/31/2015 7:59 AM EDT 12/31/2015 8:10 AM EDT Narrative Resulting Agency Comment Spec In Lab Tal Eagle MD CHEMISTRY ORDERAB LES Performing Organization Address [facility] Co de Phone Number [facility] [place] [address] * (ABNORMAL) Basic Metabolic Panel (non-fasting) (12/30/2015 3:43 PM EDT) Glucose 140 65 - 199 mg/dL [facility] Comment:Diabetes: >=200 mg/d L plus symptoms Blood Urea Nitrogen 44(H) 10 - 20 mg/dL [facility] Creatinine 5.20(H) 0.80 - 1.50 mg/dL [facility] Comment: Please note that the pediatric reference intervals supplied above were not validated at [facility]. Results from pediatric patients should be interpreted in conjunction to the patient's age, height and muscle mass. Sodium 142 135 - 145 mmol/L [facility] Potassium 4.2 3.5 - 5.0 mmol/L [facility] Comment: Please note: ??Patients with WBC >100,000 may have falsely elevated Potassium levels. ??For accurate Potassium quantification in these patients send serum separator tube (gold top) for subsequent determinations. ??Contact the Clinical Chemistry Laboratory if there are any questions. Chloride 104 98 - 107 mmol/L [facility] Carbon Dioxide 20(L) 22 - 31 mmol/L [facility] Anion Gap 18(H) 5 - 15 mmol/L [facility] Calcium 9.1 8.5 - 10.5 mg/dL [facility] Est Glomerular Filtration Rate 11(L) >=60 [facility] Comment: This [...] the following links into your internet browser. [email or web address] Blood specimen (specimen) 12/30/2015 3:43 PM EDT 12/30/2015 4:03 PM EDT Narrative Resulting Agency Comment Spec In Lab Tal Eagle MD CHEMISTRY ORDERAB LES [facility] [place] [address] * CT Abdomen & Pelvis Wo Contrast [...] suggestive of a a gallstone. Atrophic bilateral [place] kidneys are seen with left inferior pole [...] suggestive of a a gallstone. Atrophic bilateral [place] kidneys are seen with left inferior poleexophytic [...] Absolute 4.53 1.50 - 6.30 x10(3)/mc L [facility] Lymph % 17.3 % [facility] Lymphocytes Abs 1.0 1.0 - 3.6 x10(3)/mc L [facility] Monocyte % 2.0 % [facility] Monocyte Abs 0.1(L) 0.2 - 1.0 x10(3)/mc L [facility] Eos % 3.5 % [facility] Eosinophils Abs 0.2 0.0 - 0.5 x10(3)/mc L [facility] Basophil % 0.7 % [facility] Baso Absolute 0.0 0.0 - 0.2 x10(3)/[facility] Immature Gran % 0.30 % [facility] Comment: Immature granulocytes(IG's)percentage and absolute count will include metamyelocytes, myelocytes, and promyelocytes. Blood smears from CBCs yielding IG's will be scanned manually for concordance. If this scan disagrees with the automated IG or if promyelocytes are noted, a manual differential will be performed. Immature Gran Absolute 0.02 0.00 - 0.05 x10(3)/[facility] Blood specimen (specimen) 12/30/2015 8:09 AM EDT 12/30/2015 8:27 AM EDT Narrative Resulting Agency Comment Spec In Lab Tal Eagle MD HEMATOLOGY ORDERA BLES Performing Organization Address City/State/[facility] Co de Phone Number [facility] [place] [address] * (ABNORMAL) Hemogram (12/30/2015 8:09 AM EDT) White Blood Cell 6.0 4.0 - 10.0 x10(3)/[facility] Red Blood Cell 4.61(L) 4.63 - 6.08 x10(6)/[facility] Hemoglobin 14.6 13.7 - 17.5 gm/dL [facility] Hematocrit 41.7 40.0 - 51.0 % [facility] Mean Cell Volume 90.5 79.0 - 92.[address] [facility] Mean Cell Hemoglobin 31.7 25.6 - 32.[address] [facility] Mean Cell Hemoglobin Concentration 35.0 32.0 - 36.5 gm/dL [facility] Platelet 278 145 - 370 x10(3)/[facility] RDW Standard Deviation 46.2(H) 35.0 - 46.[address] [facility] RDW coefficient of variation 14.2 10.9 - 14.4 % [facility] Mean Platelet Volume 9.2 9.0 - 12.[address] [facility] Blood specimen (specimen) 12/30/2015 8:09 AM EDT 12/30/2015 8:27 AM EDT Narrative Resulting Agency Comment Spec In Lab Tal Eagle MD HEMATOLOGY ORDERA BLES Performing Organization Address City/[facility]/ZIP Co de Phone Number [facility] [place] [address] * Phosphorus (12/30/2015 8:09 AM EDT) Phosphorus 4.3 2.5 - 4.5 mg/dL [facility] Blood specimen (specimen) 12/30/2015 8:09 AM EDT 12/30/2015 8:27 AM EDT Narrative Resulting Agency Comment Spec In Lab Tal Eagle MD CHEMISTRY ORDERAB LES Performing Organization Address [facility] Co de Phone Number [facility] [place] [address] * Magnesium (12/30/2015 8:09 AM EDT) Magnesium 0.73 0.69 - 1.07 mmol/L [facility] Blood specimen (specimen) 12/30/2015 8:09 AM EDT 12/30/2015 8:27 AM EDT Narrative Resulting Agency Comment Spec In Lab Tal Eagle MD CHEMISTRY ORDERAB LES Performing Organization Address [facility] Co de Phone Number [facility] [place] [address] * (ABNORMAL) Basic Metabolic Panel (non-fasting) (12/30/2015 8:09 AM EDT) Glucose 116 65 - 199 mg/dL [facility] Comment:Diabetes: >=200 mg/d L plus symptoms Blood Urea Nitrogen 45(H) 10 - 20 mg/dL [facility] Creatinine 5.46(H) 0.80 - 1.50 mg/dL [facility] Comment: result [id number]-mkf Please note that the pediatric reference intervals supplied above were not validated at [facility]. Results from pediatric patients should be interpreted in conjunction to the patient's age, height and muscle mass. Sodium 143 135 - 145 mmol/L [facility] Potassium 4.5 3.5 - 5.0 mmol/L [facility] Comment: Please note: ??Patients with WBC >100,000 may have falsely elevated Potassium levels. ??For accurate Potassium quantification in these patients send serum separator tube (gold top) for subsequent determinations. ??Contact the Clinical Chemistry Laboratory if there are any questions. Chloride 106 98 - 107 mmol/L [facility] Carbon Dioxide 17(L) 22 - 31 mmol/L [facility] Anion Gap 20(H) 5 - 15 mmol/L [facility] Calcium 9.7 8.5 - 10.5 mg/dL [facility] Est Glomerular Filtration Rate 11(L) >=60 [facility] Comment: This [...] the following links into your internet browser. [email or web address] Blood specimen (specimen) 12/30/2015 8:09 AM EDT 12/30/2015 8:27 AM EDT Narrative Resulting Agency Comment Spec In Lab Tal Eagle MD CHEMISTRY ORDERAB LES [facility] [place] [address] * IR all procedures (12/29/2015 3:14 PM [...] placement is requested. Technique: Review of the [facility] US exam shows mild hydronephrosis; no perinephric [...] for the entire procedure) Tal Eagle MD IMG IR ORDERABLES * Antibody screen (12/29/2015 8:30 AM EDT) Ab Screen Interp Negative [facility] Expires at [id number] on: 01/01/2016 [facility] Blood specimen (specimen) 12/29/2015 8:30 AM EDT 12/29/2015 8:52 AM EDT Narrative Resulting Agency Comment Spec In Lab Tal Eagle MD BLOOD BANK LAB OR DERABLES Performing Organization Address [facility]/ZIP Co de Phone Number [facility] [place] [address] * ABO/Rh Typing (12/29/2015 8:30 AM EDT) ABORH Type AB Pos [facility] Blood specimen (specimen) 12/29/2015 8:30 AM EDT 12/29/2015 8:52 AM EDT Narrative Resulting Agency Comment Spec In Lab Tal Eagle MD BLOOD BANK LAB OR DERABLES Performing Organization Address [facility]/ZIP Co de Phone Number [facility] [place] [address] * (ABNORMAL) Phosphorus (12/29/2015 6:07 AM EDT) Phosphorus 5.4(H) 2.5 - 4.5 mg/dL [facility] Blood specimen (specimen) Venous Draw / Unknown 12/29/2015 6:07 AM EDT 12/29/2015 6:36 AM EDT Narrative Resulting Agency Comment Spec In Lab Tal Eagle MD CHEMISTRY ORDERAB LES Performing Organization Address City/[facility]/ZIP Co de Phone Number [facility] [place] [address] * (ABNORMAL) Magnesium (12/29/2015 6:07 AM EDT) Magnesium 0.63(L) 0.69 - 1.07 mmol/L [facility] Blood specimen (specimen) Venous Draw / Unknown 12/29/2015 6:07 AM EDT 12/29/2015 6:36 AM EDT Narrative Resulting Agency Comment Spec In Lab Tal Egale MD CHEMISTRY ORDERAB LES [facility] [place] [address] * Differential, Automated (12/29/2015 6:07 AM EDT) [facility] Neutrophil % 74.4 % [facility] Neutrophil Absolute 5.16 1.50 - 6.30 x10(3)/[facility] Lymph % 17.5 % [facility] Lymphocytes Abs 1.2 1.0 - 3.6 x10(3)/[facility] Monocyte % 3.6 % [facility] Monocyte Abs 0.2 0.2 - 1.0 x10(3)/[facility] Eos % 3.3 % [facility] Eosinophils Abs 0.2 0.0 - 0.5 x10(3)/[facility] Basophil % 0.9 % [facility] Baso Absolute 0.1 0.0 - 0.2 x10(3)/[facility] Immature Gran % 0.30 % [facility] Comment: Immature granulocytes(IG's)percentage and absolute count will include metamyelocytes, myelocytes, and promyelocytes. Blood smears from CBCs yielding IG's will be scanned manually for concordance. If this scan disagrees with the automated IG or if promyelocytes are noted, a manual differential will be performed. Immature Gran Absolute 0.02 0.00 - 0.05 x10(3)/[facility] Blood specimen (specimen) 12/29/2015 6:07 AM EDT 12/29/2015 6:35 AM EDT Narrative Resulting Agency Comment Spec In Lab Tal Eagle MD HEMATOLOGY ORDERA BLES Performing Organization Address City/[facility]/ZIP Co de Phone Number [facility] [place] [address] * (ABNORMAL) Hemogram (12/29/2015 6:07 AM EDT) White Blood Cell 6.9 4.0 - 10.0 x10(3)/mc L [facility] Red Blood Cell 4.15(L) 4.63 - 6.08 x10(6)/mc L [facility] Hemoglobin 12.8(L) 13.7 - 17.5 gm/dL [facility] Hematocrit 37.3(L) 40.0 - 51.0 % [facility] Mean Cell Volume 89.9 79.0 - 92.[address] [facility] Mean Cell Hemoglobin 30.8 25.6 - 32.[address] [facility] Mean Cell Hemoglobin Concentration 34.3 32.0 - 36.5 gm/dL [facility] Platelet 259 145 - 370 x10(3)/ L [facility] RDW Standard Deviation 44.7 35.0 - 46.[address] [facility] RDW coefficient of variation 13.7 10.9 - 14.4 % [facility] Mean Platelet Volume 9.2 9.0 - 12.[address] [facility] Blood specimen (specimen) 12/29/2015 6:07 AM EDT 12/29/2015 6:35 AM EDT Narrative Resulting Agency Comment Spec In Lab Tal Eagle MD HEMATOLOGY ORDERA BLES Performing Organization Address [facility]/ZIP Co de Phone Number [facility] [place] [address] * (ABNORMAL) Basic Metabolic Panel (non-fasting) (12/29/2015 6:07 AM EDT) Glucose 121 65 - 199 mg/dL [facility] Comment:Diabetes: >=200 mg/d L plus symptoms Blood Urea Nitrogen 51(H) 10 - 20 mg/dL [facility] Creatinine 6.98(H) 0.80 - 1.50 mg/dL [facility] Comment: Please note that the pediatric reference intervals supplied above were not validated at [facility]. Results from pediatric patients should be interpreted in conjunction to the patient's age, height and muscle mass. Sodium 140 135 - 145 mmol/L [facility] Potassium 4.8 3.5 - 5.0 mmol/L [facility] Comment: Please note: ??Patients with WBC >100,000 may have falsely elevated Potassium levels. ??For accurate Potassium quantification in these patients send serum separator tube (gold top) for subsequent determinations. ??Contact the Clinical Chemistry Laboratory if there are any questions. Chloride 105 98 - 107 mmol/L [facility] Carbon Dioxide 17(L) 22 - 31 mmol/L [facility] Anion Gap 18(H) 5 - 15 mmol/L [facility] Calcium 8.9 8.5 - 10.5 mg/dL [facility] Est Glomerular Filtration Rate 8(L) [...] the following links into your internet browser. [email or web address] Blood specimen (specimen) 12/29/2015 6:07 AM EDT 12/29/2015 6:35 AM EDT Narrative Resulting Agency Comment Spec In Lab Tal Eagle MD CHEMISTRY ORDERAB LES [facility] Organization Address City/State/ZIP Co de Phone Number [facility] [address] [place] [address] documented in this encounter Visit Diagnoses Diagnosis [...] Intravenous, EVERY 5 MIN PRN, Starting on Tu01/01/16 at 1530, Until Tu01/01/16 at 1715, Pain, [...] 10 mg, Subcutaneous, ONCE, 1 dose, On Thu12/29/15 at 1500, For use in Interventional Radiology [...] infusion 150 mL/hr, Intravenous, CONTINUOUS, Starting on Thu01/02/16 at 2115, Until Laura 01/03/16 at 0835 [...] on Thu12/28/15 at 1800, Until Discontinued, Routine 914 (Not Given - Provider: Ethel Benitez RN - Reason: See comment - Comment: pt states MD's told him NOT to take prior to procedure) 1213 (Given - Provider: Ethel Benitez RN - Comment: pt states MD's do not want him to take. Will clarify since now post procedure.. OK'ed to give by Dr. amaro) 0920 (Given - Provider: Cami Leonardo RN) DILTiazem (DILTIAZEM CD) ER capsule 120 mg 120 mg, Oral, DAILY, First dose on Thu12/28/15 at 1800, Until Discontinued, DO NOT CRUSH OR OPEN, Routine 2056 (Given - Provider: Cami Leonardo RN) 2099 (Given - Provider: Magaly Rodrigues RN) guar gum soluble fiber powder (NUTRISOURCE FIBER) 1 scoop 1 scoop, Other, 2 TIMES DAILY, 6 doses, First dose on Thu12/31/15 at 0945, Last dose on Thu01/02/16 at 2100, Routine 0900 (Not Given - Provider: Ethel Benitez RN - Reason: Patient/family refused)2099 (Not Given - Provider: Cami Leonardo RN - Reason: Patient/family refused) 0900 (Not Given - Provider: Ethel Benitez RN - Reason: Patient/family refused)2100 (Not Given - Provider: Magaly Rodrigues RN - Reason: Patient/family refused) heparin (porcine) subcutaneous injection 5,000 Units 5,000 Units, Subcutaneous, EVERY 12 HOURS SCHEDULED (2 times per day), First dose on Thu12/28/15 at 2100, Until Discontinued, Routine 914 (Given - Provider: Ethel Benitez RN)2057 (Given - Provider: Cami Leonardo RN) 08 (Given - Provider: Ethel Benitez RN)2099 (Given - Provider: Magaly Rodrigues RN) 0900 (Not Given - Provider: Cami Leonardo RN - Reason: Patient/family refused - Comment: being discharged and going for multiple walks) levothyroxine (SYNTHROID) tablet 75 mcg 75 mcg, Oral, EVERY MORNING, First dose on Thu12/28/15 at 1800, Until Discontinued, Routine 0627 (Given - Provider: Malina Edmonds RN) 06 (Given - Provider: Cami Leonardo RN) 0600 (Given - Provider: Magaly Rodrigues, JADEN) lidocaine (XYLOCAINE) 10 mg/mL (1 %) [...] Rodrigues, JADEN) 0921 (Given - Provider: Cami Leonardo RN) [...] Benitez RN) 0921 (See Alternative - Provider: Cmai Leonardo, JADEN) pantoprazole (PROTONIX) tablet 40 mg(Linked Group 1) 40 mg, Oral, DAILY, First dose on Thu12/28/15 at 1630, Until Discontinued, DO NOT CRUSH OR OPEN If unable to take PO, may give IV 0915 (Given - Provider: Ethel Benitez RN) 0834 (Given - Provider: Ethel Benitez RN) 0921 (Given - Provider: Cami Leonardo, JADEN) sodium chloride 0.9 % flush 5 mL 5 mL, Intravenous, 2 TIMES DAILY, First dose on Thu12/28/15 at 2100, Until Discontinued, Recovery (Recovery-Hospital Unit), Routine 0916 (Given - Provider: Ethel Benitez RN)2057 (Given - Provider: Cami Leonardo, JADEN) 0835 (Given - Provider: Ethel Benitez RN)2100 (Given - Provider: Magaly Rodrigues RN) 0920 (Given - Provider: Cami Leonardo, JADEN) sodium chloride 0.9% infusion (COMPLETED) 250 mL/hr, Intravenous, ONCE, 1 dose, On Thu01/01/16 at 2300, Please give a one time 1000 cc normal saline bolus at 250cc / hr x 4 hours, then d/c bolus and resume original maintenance IVF orders 0105 (New Bag - Provider: Cami Leonardo, JADEN) sulfamethoxazole-trimeth oprim (BACTRIM;SEPTRA) 400-80 mg per tablet 1 tablet 1 tablet, Oral, EVERY 24 HOURS SCHEDULED (Daily), First dose on Thu12/30/15 at 0900, Until Discontinued, Routine, Indication for (Active or Suspected): Prophylaxis 0916 (Given - Provider: Ethel Benitez RN) 0835 (Given - Provider: Ethel Benitez RN) 0922 (Given - Provider: Cami Leonardo, JADEN) tacrolimus (PROGRAF) capsule 1 mg 1 mg, Oral, 2 TIMES DAILY, First dose on Thu12/28/15 at 2100, Until Discontinued, Routine 915 (Given - Provider: Ethel Benitez RN)2056 (Given - Provider: Cami Leonardo, JADEN) 0834 (Given - Provider: Ethel Benitez RN)2099 (Given - Provider: Magaly Rodrigues, RN) 0921 (Given - Provider: Cami Leonardo RN) tamsulosin (FLOMAX) ER capsule 0.4 mg 0.4 mg, Oral, NIGHTLY, First dose on Thu12/28/15 at 2100, Until Discontinued, DO NOT CRUSH OR OPEN, Routine 2056 (Given - Provider: Cami Leonardo RN) 2099 (Given - Provider: Magaly Rodrigues, JADEN) valGANciclovir (VALCYTE) tablet 450 mg 450 mg, Oral, DAILY, First dose on Thu12/28/15 at 1900, Until Discontinued, Routine, Indication for (Active or Suspected): Prophylaxis 915 (Given - Provider: Ethel Benitez RN) 0835 [...] hours, Routine 2056 (Given - Provider: Cami Leonardo, RN) 0110 (Given - Provider: Cami Leonardo, RN)1604 (Given - Provider: Ethel Benitez RN) [...] supervision and verbal order., Angio/IR (Intra-Procedure), Routine 1625 (Given - Provider: Andrade Mendez, JADEN)1630 (Given - Provider: Andrade Mendez, JADEN)1635 (Given - Provider: Andrade Mendez, JADEN) iohexol [...] supervision and verbal order., Angio/IR (Intra-Procedure), Routine 1625 (Given - Provider: Andrade Mendez, RN)1635 (Given - Provider: Andrade Mendez, RN) Linked Groups Order Group 1: pantoprazole [...] Routine documented in this encounter Care Teams Software Licensing Specialist Relationship Specialty Start Date End Date [place] Denis DO [address] [place] [address] [address] [place] [address] PCP - General 09/03/12 03/17/22 Ruchi Valles RN Nurse Clinic Transplant Surgery 07/30/15 documented as of this encounter
--- OUTSIDE RECORDS SUMMARY | 2024-04-04 14:13 | XMS_ITS | Encounter Summary ---
Author Organization [facility] [place] [address] Care Team Providers Care Candy Separator Hard Name Role Phone Adeel Urbano KIRBY Primary Care Provider [phone] Reason for Visit * Reason Comments Kidney Transplant Follow-up Immunotherapy * Auth/Cert Specialty Diagnoses / Procedures Referred By Humberto flor Referred To Contact Diagnoses UTI (urinary tract infection) RECURRENT UTI/KIDNEY TX 09/2015 Referral ID Status Reason Start Date Expiration Date Visits Re quested Visits Authorized [id number] 1 1 Encounter Details Date Type Department Care Team (Latest Contact Info) Description 12/04/2015 9:00 AM EDT Office Visit [place] [address] Tal Eagle MD [facility] [place] [address] Kidney replaced by transplant; RAY (acute kidney [...] Bell, RD - 12/05/2015 11:31 AM EDT [facility] Post Transplant Nutrition Follow Up Date: 12/05/2015 Patient: Ethel Akins Transplant Date: 09/16/15 [place] [facility] diagnosis: Transplant: Mr. Ethel Akins [...] Value Date CHLPL 154 12/04/2015 Assessment: This technical document writer provided patient with a copy of [...] Eagle MD - 12/04/2015 9:39 AM EDT [facility] Transplant Nephrology Follow Up Ethel Akins [id number] Transplant ID: Date:?? 12/04/2015 Patient:?? Ethel [...] UA Latest Ref Range: Clear Clear Spec [place] UA Latest Ref Range: 1.002 - 1.030 [...] Shagufta Villasenor MD Nephrology fellow Pager # [phone] I reviewed all of the above findings and assessment of Dr. Villasenor, examined the patient and formulated the recommendations which accurately reflect mine. documented in this encounter Plan of Treatment Upcoming Encounters Date Type Department Care Team (Late st Contact Info) Description 04/08/2024 1:40 PM EDT Office Visit Cardiology at [address] [phone] Jay Urban MD [facility] [place] [address] 04/15/2024 10:00 AM EDT Hospital Encounter Non[place] [phone] Arrived documented as of this encounter Results * (ABNORMAL) Comprehensive metabolic panel (non-fasting) (12/04/2015 8:34 AM EDT) Glucose 149 65 - 199 mg/dL [facility] Comment:Diabetes: >=200 mg/d L plus symptoms Blood Urea Nitrogen 37(H) 10 - 20 mg/dL [facility] Creatinine 3.10(H) 0.80 - 1.50 mg/dL [facility] Comment: Please note that the pediatric reference intervals supplied above were not validated at [facility]. Results from pediatric patients should be interpreted in conjunction to the patient's age, height and muscle mass. Sodium 141 135 - 145 mmol/L [facility] Potassium 5.0 3.5 - 5.0 mmol/L [facility] [...] mmol/L [facility] Anion Gap 18(H) 5 - 15 mmol/L [facility] Calcium 9.6 8.5 - 10.5 mg/dL [facility] Protein, Total 7.5 6.1 - 8.0 gm/dL [facility] Albumin 4.4 3.2 - 5.2 gm/dL [facility] Aspartate Aminotransferase 36 0 - 39 unit/L [facility] Alanine Aminotransferase 33 0 - 55 unit/L [facility] Alkaline Phosphatase 69 40 - 120 unit/L [facility] Bilirubin, Total 1.2 0.2 - 1.3 mg/dL [facility] Bilirubin, Direct 0.2 0.0 - 0.3 mg/dL [facility] Est Glomerular Filtration Rate 20(L) >=60 [facility] Comment: This [...] the following links into your internet browser. [email or web address] Blood specimen (specimen) 12/04/2015 8:34 AM EDT 12/04/2015 8:42 AM EDT Narrative Resulting Agency Comment Spec In Lab Tal Eagle MD CHEMISTRY ORDERAB LES Performing Organization Address City/[facility] Co de Phone Number [facility] [place] [address] * (ABNORMAL) Magnesium (12/04/2015 8:34 AM EDT) Magnesium 0.65(L) 0.69 - 1.07 mmol/L [facility] Blood specimen (specimen) 12/04/2015 8:34 AM EDT 12/04/2015 8:42 AM EDT Narrative Resulting Agency Comment Spec In Lab Tal Eagle MD CHEMISTRY ORDERAB LES Performing Organization Address [facility] Co de Phone Number [facility] [place] [address] * Phosphorus (12/04/2015 8:34 AM EDT) Phosphorus 3.9 2.5 - 4.5 mg/dL [facility] Blood specimen (specimen) 12/04/2015 8:34 AM EDT 12/04/2015 8:42 AM EDT Narrative Resulting Agency Comment Spec In Lab Tal Eagle MD CHEMISTRY ORDERAB LES Performing Organization Address [facility] Co de Phone Number [facility] [place] [address] * (ABNORMAL) Uric acid (12/04/2015 8:34 AM EDT) Uric Acid 11.8(H) 3.5 - 8.5 mg/dL [facility] Blood specimen (specimen) 12/04/2015 8:34 AM EDT 12/04/2015 8:42 AM EDT Narrative Resulting Agency Comment Spec In Lab Tal Eagle MD CHEMISTRY ORDERAB LES Performing Organization Address City/[facility]/ZIP Co de Phone Number [facility] [place] [address] * Tacrolimus level (12/04/2015 8:34 AM EDT) Tacrolimus 6.3 ng/mL [facility] Comment:Trough therapeutic: 5-15 ng/mL Blood specimen (specimen) 12/04/2015 8:34 AM EDT 12/04/2015 10:56 AM EDT Narrative Resulting Agency Comment Spec In Lab Tal Eagle MD CHEMISTRY ORDERAB LES Performing Organization Address City/[facility]/ZIP Co de Phone Number [facility] [place] [address] * Reticulocyte Count (12/04/2015 8:34 AM EDT) [facility] Reticulocyte % 1.4 0.5 - 2.4 % [facility] Retic Abs # 0.060 0.027 - 0.095 x10(6)/mcL [facility] Immature Retic% 4.1 2.3 - 15.9 % [facility] Reticulated Hgb 33.7 28.5 - 38.[address] [facility] Immature Plt % 1.7 0.0 - 7.4 % [facility] Blood specimen (specimen) 12/04/2015 8:34 AM EDT 12/04/2015 8:42 AM EDT Narrative Resulting Agency Comment Spec In Lab Tal Eagle MD HEMATOLOGY ORDERA BLES [facility] [place] [address] * Cholesterol, total (12/04/2015 8:34 AM EDT) Pathologist [facility] Cholesterol, Total 154 <=199 mg/dL [facility] Comment: Recommendations of the NCEP Adult Treatment Panel for the following risk cutoff thresholds for the [place] population: Desirable: <200 mg/dL Borderline High: 200-239 mg/dL High: > or = 240 mg/dL Blood specimen (specimen) 12/04/2015 8:34 AM EDT 12/04/2015 8:42 AM EDT Narrative Resulting Agency Comment Spec In Lab Tal Eagle MD CHEMISTRY ORDERAB LES Performing Organization Address [facility]/ZIP Co de Phone Number [facility] [place] [address] * Protein/Creatinine Ratio, urine (12/04/2015 8:30 AM EDT) Creatinine, Urine 69 mg/dL [facility] Protein, Urine <6 0 - 12 mg/dL [facility] Protein / Creatinine Ratio, Urine <0.[address] [facility] Urine specimen (specimen) 12/04/2015 8:30 AM EDT 12/04/2015 8:44 AM EDT Narrative Resulting Agency Comment Spec In Lab Tal Eagle MD URINE ORDERABLES Performing Organization Address [facility] Co de Phone Number [facility] [place] [address] * (ABNORMAL) Urinalysis with reflex Culture (12/04/2015 [...] Clear Clear [facility] Specific [place] Urine Automated 1.008 1.002 - 1.030 [facility] Color, Urine Dipstick Straw Yellow [facility] RBC, Urine 1 0 - 3 /HPF [facility] WBC, Urine 4(H) 0 - 3 /HPF [facility] Bacteria, Urine Rare(A) None /HPF [facility] Squamous Epithelial Cells, Urine <1 <=4 /HPF [facility] Reflex to Culture No [facility] Urine specimen (specimen) 12/04/2015 8:30 AM EDT 12/04/2015 8:42 AM EDT Narrative Resulting Agency Comment Spec In Lab Tal Eagle MD URINE ORDERABLES Performing Organization Address City/State/[facility] Co de Phone Number [facility] [place] [address] documented in this encounter Visit Diagnoses Diagnosis Kidney replaced by transplant RAY (acute kidney injury) Acute kidney failure, unspecified Aftercare following organ transplant Prophylactic immunotherapy Need for prophylactic immunotherapy documented in this encounter Care Teams Candy Separator Hard Relationship Specialty Start Date End Date Urbano Denis DO [address] [place] [address] PCP - General 09/03/12 03/17/22 Ruchi Valles RN Nurse Clinic Transplant Surgery 07/30/15 documented as of this encounter
--- OUTSIDE RECORDS SUMMARY | 2024-04-04 14:13 | XMS_ITS | Encounter Summary ---
Author Organization [facility] [place] [address] Care Team Providers Care Construction Operations Manager Name Role Phone [place] Denis DO Primary Care Provider [phone] Reason for Visit * Auth/Cert Specialty Diagnoses / Procedures Referred By Humberto t Referred To Contact Diagnoses RAY (acute kidney injury) CREATINE RISE S/P RENAL TRANPLANT Referral ID Status Reason Start Date Expiration Date Visits Re quested Visits Authorized [id number] 1 1 Encounter Details Date Type Department Care Team (Latest Contact Info) Description 11/27/2015 11:39 AM EDT - 11/28/2015 2:18 PM EDT Hospital Encounter [address] [place] [address] Madhu Eagle MD [facility] [place] [address] Discharge Disposition: Home Social History Tobacco Use [...] 9:30 AM LAB, [facility] 12/11/2015 10:30 AM Madhu Eagle [...] Department anytime (day, night, weekend, holiday) at [phone] . After hours, please follow the instructions on the message. You can also reach the preparation center coordinator after hours by calling (ask for the preparation center coordinator on-call). General Instructions None Provider Contact Information: [phone] Signed: JOANIE DANG MD 11/28/2015 I reviewed [...] the message. You can also reach the preparation center coordinator after hours by calling (ask for the preparation center coordinator on-call). documented in this encounter Medications [...] team. No discharge needs identified atthis time. Social Media Marketer remains available as needed for coordination of [...] leave and reported that they would call preparation center coordinator with questions.Follow up appointments and care of PICC site reviewed with patient and who report understanding. Patient left with staff to meet with at [facility]. * Ran Clement RN - 11/28/2015 [...] Dang MD - 11/27/2015 11:55 AM EDT [facility] Department of Transplant Surgery Inpatient Admission [...] EXTREMITY performed by Que Amaro MD at [facility] MAIN OR ??? Pro transplantation of kidney N/A 09/16/2015 @KIDNEY TRANSPLANT, WITHOUT RECIPIENT NEPHRECTOMY performed by Franko Larkin MD at [facility] MA[facility] OR ??? Pro transplant, prep cadaver renal graft N/A 09/16/2015 @PREPARATION CADAVERIC RENAL ALLOGRAFT performed by Franko Larkin MD at [facility] MA[facility] OR ??? N/A 09/16/2015 ORGAN ACQUISITION RENAL, CADAVERIC performed by Franko Larkin MD at [facility] MA[facility] OR ALL: No Known Allergies [...] Negative mcL Appearance UA Clear Clear Spec [place] UA 1.006 1.002 - 1.030 Color UA [...] PM EDT Office Visit Cardiology at [address] [phone] Jay Urban MD [facility] [place] [address] 04/15/2024 10:00 AM EDT Hospital Encounter Non[place] [phone] Arrived documented as of this encounter Procedures [...] Green Tube HOLD (11/28/2015 7:58 AM EDT) Green Hold Sample in lab. [facility] Blood specimen (specimen) Venous Draw / Unknown 11/28/2015 7:58 AM EDT 11/28/2015 7:59 AM EDT Madhu Eagle MD CHEMISTRY ORDERAB LES [facility] [place] [address] * (ABNORMAL) Differential, Automated (11/28/2015 7:58 AM EDT) Neutrophil % 65.7 % [facility] Neutrophil Absolute 3.39 1.50 - 6.30 x10(3)/ L [facility] Lymph % 21.7 % [facility] Lymphocytes Abs 1.1 1.0 - 3.6 x10(3)/ L [facility] Monocyte % 5.6 % [facility] Monocyte Abs 0.3 0.2 - 1.0 x10(3)/[facility] Eos % 3.3 % [facility] Eosinophils Abs 0.2 0.0 - 0.5 x10(3)/[facility] Basophil % 2.3 % [facility] Baso Absolute 0.1 0.0 - 0.2 x10(3)/[facility] Immature Gran % 1.40 % [facility] Comment: Immature granulocytes(IG's)percentage and absolute count will include metamyelocytes, myelocytes, and promyelocytes. Blood smears from CBCs yielding IG's will be scanned manually for concordance. If this scan disagrees with the automated IG or if promyelocytes are noted, a manual differential will be performed. Immature Gran Absolute 0.07(H) 0.00 - 0.05 x10(3)/[facility] Blood specimen (specimen) 11/28/2015 7:58 AM EDT 11/28/2015 7:58 AM EDT Narrative Resulting Agency Comment Spec In Lab Madhu Eagle MD HEMATOLOGY ORDERA BLES [facility] [place] [address] * (ABNORMAL) Hemogram (11/28/2015 7:58 AM EDT) White Blood Cell 5.2 4.0 - 10.0 x10(3)/ L [facility] Red Blood Cell 3.96(L) 4.63 - 6.08 x10(6)/[facility] Hemoglobin 12.6(L) 13.7 - 17.5 gm/dL [facility] Hematocrit 36.4(L) 40.0 - 51.0 % [facility] Mean Cell Volume 91.9 79.0 - 92.[address] [facility] Mean Cell Hemoglobin 31.8 25.6 - 32.[address] [facility] Mean Cell Hemoglobin Concentration 34.6 32.0 - 36.5 gm/dL [facility] Platelet 307 145 - 370 x10(3)/mc L [facility] RDW Standard Deviation 48.7(H) 35.0 - 46.[address] [facility] RDW coefficient of variation 14.4 10.9 - 14.4 % [facility] Mean Platelet Volume 9.2 9.0 - 12.[address] [facility] Blood specimen (specimen) 11/28/2015 7:58 AM EDT 11/28/2015 7:58 AM EDT Narrative Resulting Agency Comment Spec In Lab Madhu Eagle MD HEMATOLOGY ORDERA BLES Performing Organization Address City/[facility]/ZIP Co de Phone Number [facility] [place] [address] * Tacrolimus level (11/28/2015 7:58 AM EDT) Tacrolimus 5.2 ng/mL [facility] Comment:Trough therapeutic: 5-15 ng/mL Blood specimen (specimen) 11/28/2015 7:58 AM EDT 11/28/2015 9:09 AM EDT Narrative Resulting Agency Comment Spec In Lab Madhu Eagle MD CHEMISTRY ORDERAB LES Performing Organization Address City/[facility]/ZIP Co de Phone Number [facility] [place] [address] * Phosphorus (11/28/2015 7:58 AM EDT) Phosphorus 3.4 2.5 - 4.5 mg/dL [facility] Blood specimen (specimen) 11/28/2015 7:58 AM EDT 11/28/2015 7:58 AM EDT Narrative Resulting Agency Comment Spec In Lab Madhu Eagle MD CHEMISTRY ORDERAB LES Performing Organization Address [facility] Co de Phone Number [facility] [place] [address] * (ABNORMAL) Magnesium (11/28/2015 7:58 AM EDT) Magnesium 0.54(L) 0.69 - 1.07 mmol/L [facility] Blood specimen (specimen) 11/28/2015 7:58 AM EDT 11/28/2015 7:58 AM EDT Narrative Resulting Agency Comment Spec In Lab Madhu Eagle MD CHEMISTRY ORDERAB LES Performing Organization Address [facility] Co de Phone Number [facility] [place] [address] * (ABNORMAL) Basic Metabolic Panel (non-fasting) (11/28/2015 7:58 AM EDT) Glucose 149 65 - 199 mg/dL [facility] Comment:Diabetes: >=200 mg/d L plus symptoms Blood Urea Nitrogen 26(H) 10 - 20 mg/dL [facility] Creatinine 2.30(H) 0.80 - 1.50 mg/dL [facility] Comment: Please note that the pediatric reference intervals supplied above were not validated at [facility]. Results from pediatric patients should be interpreted in conjunction to the patient's age, height and muscle mass. Sodium 145 135 - 145 mmol/L [facility] Potassium 4.1 3.5 - 5.0 mmol/L [facility] Comment: Please note: ??Patients with WBC >100,000 may have falsely elevated Potassium levels. ??For accurate Potassium quantification in these patients send serum separator tube (gold top) for subsequent determinations. ??Contact the Clinical Chemistry Laboratory if there are any questions. Chloride 108(H) 98 - 107 mmol/L [facility] Carbon Dioxide 22 22 - 31 mmol/L [facility] Anion Gap 15 5 - 15 mmol/L [facility] Calcium 9.3 8.5 - 10.5 mg/dL [facility] Est Glomerular Filtration Rate 28(L) >=60 [facility] Comment: This [...] the following links into your internet browser. [email or web address] Blood specimen (specimen) 11/28/2015 7:58 AM EDT 11/28/2015 7:58 AM EDT Narrative Resulting Agency Comment Spec In Lab Madhu Eagle MD CHEMISTRY ORDERAB LES [facility] [place] [address] * XR Chest Pa or AP- 1 [...] 05:46 pm) Patient Info ID #: ? [id number] ? : [birth year] (65 yrs) Name: ? ETHEL AKINS ? Visit Date:11/27/2015 02:26 pm Performed By Performed By: ? Osmar Dowd RDMS Attending: ?Kerry GERBER, Jolly Toth Associate: ?Stefan GERBER, Enrique Hansen Referred By: ?MADHU EAGLE MD Service(s) Provided ??URTPL - Ultrasound Renal Transplant - Left - [id number] Indications ??s/p renal transplant now with RAY [...] Final 11/27/2015 05:46pm) Patient Info ID #: [id number] : [birth year] (65 yrs) Name: ETHEL AKINS Visit Date:11/27/2015 02:26 pm Performed By Performed By: Osmar Dowd RDMS Attending: Jolly Payne MD Associate: Enriuqe Aviles MD Referred By: MADHU EAGLE MD Service(s) Provided URTPL - Ultrasound Renal Transplant - Left - [id number] Indications s/p renal transplant now with ARY Comparison Renal transplant ultrasound 11/14/2015. Renal Allograft [...] Report 11/27/2015 05:46 pm Madhu Eagle MD [facility] GEN ORDERA BLES documented in this encounter [...] ONCE, 1 dose, On Thu11/27/15 at 1500, Routine, Indication for (Active or Suspected): Urinary Tract/Pyelonephritis, Restricted Antibiotic: Please indicate the most appropriate choice: ID Approval by Dina Moon Given 11/27/2015 3:57 PM EDT 500 mg 120 mL/hr DILTiazem (DILTIAZEM CD) ER capsule 120 [...] 4 hours to keep patient net even). yard caller internal review and audit compliance will also be checking to try to [...] this AM) 0841 (Given - Provider: Margarette Mota RN) DAPTOmycin (CUBICIN) 500 mg in sodium chloride 0.9% 60 mL (COMPLETED) 500 mg, Intravenous, at 120 mL/hr, ONCE, 1 dose, On Thu11/27/15 at 1500, Routine, Indication for (Active or Suspected): Urinary Tract/Pyelonephritis, Restricted Antibiotic: Please indicate the most appropriate choice: ID Approval by Dina Moon [id number] (Given - Provider: Malina Edmonds RN) DILTiazem (DILTIAZEM CD) ER capsule 120 mg 120 mg, Oral, DAILY, First dose on Thu11/27/15 at 1500, Until Discontinued, DO NOT CRUSH OR OPEN, Routine 2001 (Given - Provider: Sandra Dodd RN) 0840 (Given - Provider: Margarette Mota RN) heparin (porcine) subcutaneous injection 5,000 Units [...] unable to take PO, may give IV 161 (Given - Provider: Malina Edmonds RN) 0841 [...] Edmonds RN) 0840 (Given - Provider: Margarette Mota, JADEN) sodium chloride 0.9 % flush 5 mL 5 mL, Intravenous, 2 TIMES DAILY, First dose on Thu11/27/15 at 1345, Until Discontinued, Recovery (Recovery-Hospital Unit), Routine 1356 (Given - Provider: Malina Edmonds, JADEN)2100 (Not Given - Provider: Sandra Dodd RN - Reason: Patient/family refused) 0900 (Not Given - Provider: Margarette Mota RN - Reason: Loss of access) sodium chloride 0.9% 2,000 mL IV bolus (COMPLETED) Intravenous, ONCE, 1 dose, On Thu11/27/15 at 1845 1916 (Given - Provider: Malina Edmonds RN) sodium chloride 0.9% infusion (CANCELED) 0-1,000 mL/hr, [...] 4 hours to keep patient net even). yard caller internal review and audit compliance will also be checking to try to make patient +2L (so may have extra boluses overnight) 2001 (Continued Bag - Provider: Sandra Dodd RN) sulfamethoxazole-trimethop rim (BACTRIM;SEPTRA) 400-80 mg per tablet [...] OPEN, Routine 2001 (Given - Provider: Sandra Dodd, JADEN) valGANciclovir (VALCYTE) tablet 900 mg 900 mg, [...] Unit) 1356 (New Bag - Provider: Malina Edmonds RN)1916 (Stopped - Provider: Malina Edmonds, JADEN) PRN Medication Order 11/26/2015 11/27/2015 11/28/2015 acetaminophen [...] Intravenous, EVERY 1 MIN PRN, Starting on 5/24/16 at 1324, Until Thu11/28/15 at 1619, Opioid [...] first. documented in this encounter Care Teams Construction Operations Manager Relationship Specialty Start Date End Date [place] Denis DO [address] [place] [address] PCP - General 09/03/12 03/17/22 Ruchi Valles RN Nurse Clinic Transplant Surgery 07/30/15 documented as of this encounter
--- OUTSIDE RECORDS SUMMARY | 2024-04-04 14:13 | XMS_ITS | Encounter Summary ---
Author Organization [facility] [place] [address] Care Team Providers Care Railroad Conductor Name Role Phone Urbano Denis DO Primary Care Provider [phone] Reason for Visit * Auth/Cert Specialty Diagnoses / Procedures Referred By Humberto flor Referred To Contact Diagnoses UTI (urinary tract infection) RECURRENT UTI/KIDNEY [place] 09/2015 Referral ID Status Reason Start Date Expiration Date Visits Re quested Visits Authorized [id number] 1 1 Encounter Details Date Type Department Care Team (Latest Contact Info) Description 12/07/2015 7:30 AM EDT Laboratory Appointment Lab [address] [place] [phone] Kidney replaced by transplant Social History Tobacco [...] PM EDT Office Visit Cardiology at [address] [phone] Jay Urban MD [facility] [place] [address] 04/15/2024 10:00 AM EDT Hospital Encounter Non[place] [address] Arrived documented as of this [...] EDT) Glucose, Urine Dipstick Negative Negative mg/dL [facility] [...] 8.0 [facility] Blood, Urine Dipstick Large(A) Negative mg/dL [facility] Ketone, Urine Dipstick Negative Negative mg/dL [facility] Nitrite, Urine Dipstick Negative Negative [facility] Leukocytes, Urine Dipstick Large(A) Negative mcL [facility] Appearance, Urine Dipstick Hazy(A) Clear [facility] Specific [place] Urine Automated 1.011 1.002 - 1.030 [facility] Color, Urine Dipstick Yellow Yellow [facility] RBC, Urine 38(H) 0 - 3 /HPF [facility] WBC, Urine 56(H) 0 - 3 /HPF [facility] WBC Clumps, Urine Rare(A) None /HPF [facility] Bacteria, Urine Rare(A) None /HPF [facility] Hyaline Casts, Urine 1 0 - 2 /LPF [facility] Reflex to Culture Yes [facility] Urine specimen (specimen) 12/07/2015 8:10 AM EDT 12/07/2015 8:17 AM EDT Narrative Resulting Agency Comment Spec In Lab Que Amaro MD URINE ORDERABL ES [facility] [place] [address] * (ABNORMAL) Protein/Creatinine Ratio, urine (12/07/2015 8:09 AM EDT) Creatinine, Urine 97 mg/dL [facility] Protein, Urine 52(H) 0 - 12 mg/dL [facility] Protein / Creatinine Ratio, Urine 0.5 ratio [facility] Urine specimen (specimen) 12/07/2015 8:09 AM EDT 12/07/2015 8:15 AM EDT Narrative Resulting Agency Comment Spec In Lab Que Amaro MD URINE ORDERABL ES [facility] [place] [address] * (ABNORMAL) Differential, Automated (12/07/2015 7:55 AM EDT) Neutrophil % 78.4 % [facility] Neutrophil Absolute 4.07 1.50 - 6.30 x10(3)/mc L [facility] Lymph % 15.0 % [facility] Lymphocytes Abs 0.8(L) 1.0 - 3.6 x10(3)/mc L [facility] Monocyte % 2.3 % [facility] Monocyte Abs 0.1(L) 0.2 - 1.0 x10(3)/mc L [facility] Eos % 2.9 % [facility] Eosinophils Abs 0.2 0.0 - 0.5 x10(3)/mc L [facility] Basophil % 0.8 % [facility] Baso Absolute 0.0 0.0 - 0.2 x10(3)/mc L [facility] Immature Gran % 0.60 % [facility] Comment: Immature granulocytes(IG's)percentage and absolute count will include metamyelocytes, myelocytes, and promyelocytes. Blood smears from CBCs yielding IG's will be scanned manually for concordance. If this scan disagrees with the automated IG or if promyelocytes are noted, a manual differential will be performed. Immature Gran Absolute 0.03 0.00 - 0.05 x10(3)/mc L [facility] Blood specimen (specimen) 12/07/2015 7:55 AM EDT 12/07/2015 8:01 AM EDT Narrative Resulting Agency Comment Spec In Lab Que Amaro MD HEMATOLOGY ORD ERABLES Performing Organization Address City/[facility]/ZIP Co de Phone Number [facility] [place] [address] * (ABNORMAL) Hemogram (12/07/2015 7:55 AM EDT) White Blood Cell 5.2 4.0 - 10.0 x10(3)/mc L [facility] Red Blood Cell 4.47(L) 4.63 - 6.08 x10(6)/mc L [facility] Hemoglobin 14.3 13.7 - 17.5 gm/dL [facility] Hematocrit 42.0 40.0 - 51.0 % [facility] Mean Cell Volume 94.0(H) 79.0 - 92.0 fL [facility] Mean Cell Hemoglobin 32.0 25.6 - 32.2 pg [facility] Mean Cell Hemoglobin Concentration 34.0 32.0 - 36.5 gm/dL [facility] Platelet 232 145 - 370 x10(3)/mc L [facility] RDW Standard Deviation 47.4(H) 35.0 - 46.0 fL [facility] RDW coefficient of variation 13.9 10.9 - 14.4 % [facility] Mean Platelet Volume 9.7 9.0 - 12.0 fL [facility] Blood specimen (specimen) 12/07/2015 7:55 AM EDT 12/07/2015 8:01 AM EDT Narrative Resulting Agency Comment Spec In Lab Que Amaro MD HEMATOLOGY ORD ERABLES Performing Organization Address City/[facility]/ZIP Co de Phone Number [facility] [place] [address] * (ABNORMAL) Comprehensive metabolic panel (non-fasting) (12/07/2015 7:55 AM EDT) Glucose 155 65 - 199 mg/dL [facility] Comment:Diabetes: >=200 mg/d L plus symptoms Blood Urea Nitrogen 31(H) 10 - 20 mg/dL [facility] Creatinine 2.98(H) 0.80 - 1.50 mg/dL [facility] Comment: Please note that the pediatric reference intervals supplied above were not validated at [facility]. Results from pediatric patients should be interpreted in conjunction to the patient's age, height and muscle mass. Sodium 139 135 - 145 mmol/L [facility] Potassium 4.6 3.5 - 5.0 mmol/L [facility] [...] 10.5 mg/dL [facility] Protein, Total 8.1(H) 6.1 - 8.0 gm/dL [facility] Albumin 4.5 3.2 - 5.2 gm/dL [facility] Aspartate Aminotransferase 24 0 - 39 unit/L [facility] Alanine Aminotransferase 22 0 - 55 unit/L [facility] Alkaline Phosphatase 76 40 - 120 unit/L [facility] Bilirubin, Total 0.9 0.2 - 1.3 mg/dL [facility] Bilirubin, Direct 0.3 0.0 - 0.3 mg/dL [facility] Est Glomerular Filtration Rate 21(L) >=60 [facility] Comment: This estimated [...] the following links into your internet browser. [email or web address] Blood specimen (specimen) 12/07/2015 7:55 AM EDT 12/07/2015 8:01 AM EDT Narrative Resulting Agency Comment Spec In Lab Que Amaro MD CHEMISTRY ROCHELLE JENNINGS Performing Organization Address [facility] Co de Phone Number [facility] [place] [address] * (ABNORMAL) Magnesium (12/07/2015 7:55 AM EDT) Magnesium 0.65(L) 0.69 - 1.07 mmol/L [facility] Blood specimen (specimen) 12/07/2015 7:55 AM EDT 12/07/2015 8:01 AM EDT Narrative Resulting Agency Comment Spec In Lab Que Amaro MD CHEMISTRY ORDBhargav JENNINGS Performing Organization Address [facility] Co de Phone Number [facility] [place] [address] * Phosphorus (12/07/2015 7:55 AM EDT) Phosphorus 3.0 2.5 - 4.5 mg/dL [facility] Blood specimen (specimen) 12/07/2015 7:55 AM EDT 12/07/2015 8:01 AM EDT Narrative Resulting Agency Comment Spec In Lab Que Amaro MD CHEMISTRY ORDBhargav JENNINGS Performing Organization Address [facility] Co de Phone Number [facility] [place] [address] * (ABNORMAL) Uric acid (12/07/2015 7:55 AM EDT) Uric Acid 11.1(H) 3.5 - 8.5 mg/dL [facility] Blood specimen (specimen) 12/07/2015 7:55 AM EDT 12/07/2015 8:01 AM EDT Narrative Resulting Agency Comment Spec In Lab Que Amaro MD CHEMISTRY ORDE DICK Performing Organization Address City/[facility]/ZIP Co de Phone Number [facility] [place] [address] * Tacrolimus level (12/07/2015 7:55 AM EDT) Pathologist [facility] Tacrolimus 5.6 ng/mL [facility] Comment:Trough therapeutic: 5-15 ng/mL Blood specimen (specimen) 12/07/2015 7:55 AM EDT 12/07/2015 10:52 AM EDT Narrative Resulting Agency Comment Spec In Lab Que Amaro MD CHEMISTRY ORDE ITIS HoldingsLENORE Performing Organization Address [facility]/ZIP Co de Phone Number [facility] [place] [address] * Reticulocyte Count (12/07/2015 7:55 AM EDT) Reticulocyte % 1.8 0.5 - 2.4 % [facility] Retic Abs # 0.080 0.027 - 0.095 x10(6)/mcL [facility] Immature Retic% 3.8 2.3 - 15.9 % [facility] Reticulated Hgb 34.0 28.5 - 38.9 pg [facility] Immature Plt % 1.2 0.0 - 7.4 % [facility] Blood specimen (specimen) 12/07/2015 7:55 AM EDT 12/07/2015 8:01 AM EDT Narrative Resulting Agency Comment Spec In Lab Que Amaro MD HEMATOLOGY STEVE LINARES Performing Organization Address [facility]/ZIP Co de Phone Number [facility] [place] [address] * Cholesterol, total (12/07/2015 7:55 AM EDT) Cholesterol, Total 150 <=199 mg/dL [facility] Comment: Recommendations of the NCEP Adult Treatment Panel for the following risk cutoff thresholds for the [place] population: Desirable: <200 mg/dL Borderline High: 200-239 mg/dL High: > or = 240 mg/dL Blood specimen (specimen) 12/07/2015 7:55 AM EDT 12/07/2015 8:01 AM EDT Narrative Resulting Agency Comment Spec In Lab Que Amaro MD CHEMISTRY ROCHELLE JENNINGS Performing Organization Address [facility] Co de Phone Number [facility] [place] [address] documented in this encounter Visit Diagnoses Diagnosis Kidney replaced by transplant documented in this encounter Care Teams Railroad Conductor Relationship Specialty Start Date End Date Urbano Denis DO [address] [place] [address] PCP - General 09/03/12 03/17/22 Ruchi Valles RN Nurse Clinic Transplant Surgery 07/30/15 documented as of this encounter
--- OUTSIDE RECORDS SUMMARY | 2024-04-04 14:13 | XMS_ITS | Encounter Summary ---
[place] [address] Care Team Providers Care Supervisor Grinding Name Role Phone Urbano Denis DO Primary Care Provider Reason for Visit * Auth/Cert Specialty Diagnoses / Procedures Referred By Humberto flor Referred To Contact Diagnoses UTI (urinary tract infection) RECURRENT UTI/KIDNEY TX 09/2015 Referral ID Status Reason Start Date Expiration Date Visits Re quested Visits Authorized [id number] 1 1 Encounter Details Date Type Department Care Team (Latest Contact Info) Description 12/07/2015 12:00 PM EDT - 12/07/2015 11:59 PM EDT Hospital [place] [address] [place], [place] Discharge Disposition: Home Social History Tobacco [...] PM EDT Office Visit Cardiology at [address] [phone] Jay Urban MD [facility] [place] [address] 04/15/2024 10:00 AM EDT Hospital Encounter [place] [phone] Arrived documented as of this encounter Visit Diagnoses Not on filedocumented in this encounter Care Teams Supervisor Grinding Relationship Specialty Start Date End Date Urbano Denis DO [address] [place] [address] [address] [facility] [address] [place] [address] PCP - General 09/03/12 03/17/22 Ruchi Valles RN Nurse Clinic Transplant Surgery 07/30/15 documented as of this encounter
--- OUTSIDE RECORDS SUMMARY | 2024-04-04 14:13 | XMS_ITS | Encounter Summary ---
Author Organization [facility] [place] [address] Care Team Providers Care Piece Goods Packer Name Role Phone Urbano Denis DO Primary Care Provider [phone] Reason for Visit * Auth/Cert Specialty Diagnoses / Procedures Referred By Humberto t Referred To Contact Diagnoses RAY (acute kidney injury) CREATINE RISE S/P RENAL TRANPLANT Referral ID Status Reason Start Date Expiration Date Visits Re quested Visits Authorized [id number] 1 1 Encounter Details Date Type Department Care Team (Late st Contact Info) Description 11/27/2015 10:00 AM EDT Office Visit [place] [address] Jennifer Amaro MD [facility] [place] [address] H/O kidney transplant Social History Tobacco Use [...] Bell, RD - 11/27/2015 1:37 PM EDT [facility] Post Transplant Nutrition Follow Up Date: 11/27/2015 Patient: Cody Bolden Transplant Date: 09/16/15 [place] organ UNOS diagnosis: Transplant: Mr. Cody [...] Value Date CHLPL 152 11/27/2015 Assessment: This senior writer reviewed patient's blood chemistries with him. [...] EXTREMITY performed by Jennifer Amaro MD at [facility] OR ??? Pro transplantation of kidney N/A 09/16/2015 @KIDNEY TRANSPLANT, WITHOUT RECIPIENT NEPHRECTOMY performed by Franko Larkin MD at [facility] OR ??? Pro transplant, prep cadaver renal graft N/A 09/16/2015 @PREPARATION CADAVERIC RENAL ALLOGRAFT performed by Franko Larkin MD at [facility] OR ??? N/A 09/16/2015 ORGAN ACQUISITION RENAL, CADAVERIC performed by Franko Larkin MD at [facility] OR Family History: No family [...] 12:45p Total infusion: 2,000cc Samia Escalante RN [facility] [place] [phone] (Pager: [phone]) documented in this encounter Plan of Treatment Upcoming Encounters Date Type Department Care Team (Late st Contact Info) Description 04/08/2024 1:40 PM EDT Office Visit Cardiology at [address] [phone] Jay Urban MD [facility] [place] [address] 04/15/2024 10:00 AM EDT Hospital Encounter Non-[place] [phone] Arrived documented as of this encounter Procedures [...] Quant Blood Result (11/27/2015 9:30 AM EDT) BKV Blood Result Not Detected [...] DNA isolated from plasma was performed using [employer] BKV (ASR) reagents and the [employer] 7500 FAST Real-Time PCR System. In addition, the ??PCR product sequence is confirmed using physical properties (melting curve analysis). This test was developed and its performance determined by the [facility] [place] Molecular [...] clinical testing. [facility] Comment: [VERIFIED DATE]11.28.15 Verified By:Nella Evans (Electronic Signature) Blood specimen (specimen) 11/27/2015 9:30 AM EDT 11/27/2015 1:04 PM EDT Narrative Resulting Agency Comment Spec In Lab Jennifer Amaro MD HEMATOLOGY ORD MILAGROS Performing Organization Address [facility] Co de Phone Number [facility] [place] [address] * Green Tube HOLD (11/27/2015 9:30 AM EDT) Green Hold Sample in lab. [facility] Blood specimen (specimen) Venous Draw / Unknown 11/27/2015 9:30 AM EDT 11/27/2015 9:50 AM EDT Jennifer Amaro MD CHEMISTRY ORDTiny EJNNINGS Performing Organization Address [facility]/ZIP Co de Phone Number [facility] [place] [address] * (ABNORMAL) Differential, Automated (11/27/2015 9:30 AM EDT) Neutrophil % 70.3 % [facility] Neutrophil Absolute 4.59 1.50 - 6.30 x10(3)/[facility] Lymph % 20.0 % [facility] Lymphocytes Abs 1.3 1.0 - 3.6 x10(3)/[facility] Monocyte % 4.0 % [facility] Monocyte Abs 0.3 0.2 - 1.0 x10(3)/[facility] Eos % 2.4 % [facility] Eosinophils Abs 0.2 0.0 - 0.5 x10(3)/[facility] Basophil % 1.2 % [facility] Baso Absolute 0.1 0.0 - 0.2 x10(3)/[facility] Immature Gran % 2.10 % [facility] Comment: Immature granulocytes(IG's)percentage and absolute count will include metamyelocytes, myelocytes, and promyelocytes. Blood smears from CBCs yielding IG's will be scanned manually for concordance. If this scan disagrees with the automated IG or if promyelocytes are noted, a manual differential will be performed. Immature Gran Absolute 0.14(H) 0.00 - 0.05 x10(3)/[facility] Blood specimen (specimen) 11/27/2015 9:30 AM EDT 11/27/2015 9:46 AM EDT Narrative Resulting Agency Comment Spec In Lab Jennifer Amaro MD HEMATOLOGY ORD ERABLES [facility] [place] [address] * (ABNORMAL) Hemogram (11/27/2015 9:30 AM EDT) White Blood Cell 6.5 4.0 - 10.0 x10(3)/[facility]AT[facility] Red Blood Cell 4.12(L) 4.63 - 6.08 x10(6)/mc L [facility] Hemoglobin 13.3(L) 13.7 - 17.5 gm/dL [facility] Hematocrit 37.9(L) 40.0 - 51.0 % [facility] Mean Cell Volume 92.0 79.0 - 92.0 fL [facility] Mean Cell Hemoglobin 32.3(H) 25.6 - 32.2 pg [facility] Mean Cell Hemoglobin Concentration 35.1 32.0 - 36.5 gm/dL [facility] Platelet 349 145 - 370 x10(3)/mc L [facility] RDW Standard Deviation 48.3(H) 35.0 - 46.0 fL [facility] RDW coefficient of variation 14.4 10.9 - 14.4 % [facility] Mean Platelet Volume 9.1 9.0 - 12.0 fL [facility] Blood specimen (specimen) 11/27/2015 9:30 AM EDT 11/27/2015 9:46 AM EDT Narrative Resulting Agency Comment Spec In Lab Jennifer Amaro MD HEMATOLOGY ORD ERABLES Performing Organization Address City/[facility]/ZIP Co de Phone Number [facility] [place] [address] * Tacrolimus level (11/27/2015 9:30 AM EDT) Tacrolimus 7.2 ng/mL [facility] Comment:Trough therapeutic: 5-15 ng/mL Blood specimen (specimen) 11/27/2015 9:30 AM EDT 11/27/2015 10:56 AM EDT Narrative Resulting Agency Comment Spec In Lab Jennifer Amaro MD CHEMISTRY ORDE RABLENORE Performing Organization Address City/[facility]/ZIP Co de Phone Number [facility] [place] [address] * Urinalysis with reflex Culture (11/27/2015 9:30 [...] mg/dL [facility] pH, Urn (dipstick) 5.0 5.0 - 8.0 [facility] Blood, Urine Dipstick Negative Negative mg/dL [facility] Ketone, Urine Dipstick Negative Negative mg/dL [facility] Nitrite, Urine Dipstick Negative Negative [facility] Leukocytes, Urine Dipstick Negative Negative [facility] Appearance, Urine Dipstick Clear Clear [facility] Specific Harris Urine Automated 1.006 1.002 - 1.030 [facility] Color, Urine Dipstick Straw Yellow [facility] RBC, Urine 1 0 - 3 /HPF [facility] WBC, Urine 1 0 - 3 /HPF [facility] Reflex to Culture No [facility] Urine specimen obtained by clean catch procedure (specimen) 11/27/2015 9:30 AM EDT 11/27/2015 9:46 AM EDT Narrative Resulting Agency Comment Spec In Lab Jennifer Amaro MD URINE ORDERABL ES [facility] [place] [address] * (ABNORMAL) Reticulocyte Count (11/27/2015 9:30 AM EDT) Reticulocyte % 1.5 0.5 - 2.4 % [facility] Retic Abs # 0.060 0.027 - 0.095 x10(6)/mcL [facility] Immature Retic% 2.2(L) 2.3 - 15.9 % [facility] Reticulated Hgb 33.1 28.5 - 38.9 pg [facility] Immature Plt % 1.1 0.0 - 7.4 % [facility] Blood specimen (specimen) 11/27/2015 9:30 AM EDT 11/27/2015 9:46 AM EDT Narrative Resulting Agency Comment Spec In Lab Jennifer Amaro MD HEMATOLOGY ORD ERABLES Performing Organization Address [facility]/ZIP Co de Phone Number [facility] [place] [address] * (ABNORMAL) Uric acid (11/27/2015 9:30 AM EDT) Uric Acid 10.4(H) 3.5 - 8.5 mg/dL [facility] Blood specimen (specimen) 11/27/2015 9:30 AM EDT 11/27/2015 9:46 AM EDT Narrative Resulting Agency Comment Spec In Lab Jennifer Amaro MD CHEMISTRY ORDTiny JENNINGS Performing Organization Address [facility] Co de Phone Number [facility] [place] [address] * Phosphorus (11/27/2015 9:30 AM EDT) Phosphorus 3.8 2.5 - 4.5 mg/dL [facility] Blood specimen (specimen) 11/27/2015 9:30 AM EDT 11/27/2015 9:46 AM EDT Narrative Resulting Agency Comment Spec In Lab Jennifer Amaro MD CHEMISTRY ORDTiny JENNINGS Performing Organization Address [facility]/ZIP Co de Phone Number [facility] [place] [address] * (ABNORMAL) Magnesium (11/27/2015 9:30 AM EDT) Magnesium 0.61(L) 0.69 - 1.07 mmol/L [facility] Blood specimen (specimen) 11/27/2015 9:30 AM EDT 11/27/2015 9:46 AM EDT Narrative Resulting Agency Comment Spec In Lab Jennifer Amaro MD CHEMISTRY ROCHELLE JENNINGS [facility] [place] [address] * (ABNORMAL) Comprehensive metabolic panel (non-fasting) (11/27/2015 9:30 AM EDT) Glucose 145 65 - 199 mg/dL [facility] Comment:Diabetes: >=200 mg/d L plus symptoms Blood Urea Nitrogen 37(H) 10 - 20 mg/dL [facility] Creatinine 2.83(H) 0.80 - 1.50 mg/dL [facility] [...] - 15 mmol/L [facility] Calcium 9.5 8.5 - 10.5 mg/dL [facility] Protein, Total 7.4 6.1 - 8.0 gm/dL [facility] Albumin 4.0 3.2 - 5.2 gm/dL [facility] Aspartate Aminotransferase 30 0 - 39 unit/L [facility] Alanine Aminotransferase 28 0 - 55 unit/L [facility] Alkaline Phosphatase 73 40 - 120 unit/L [facility] Bilirubin, Total 0.8 0.2 - 1.3 mg/dL [facility] Bilirubin, Direct 0.2 0.0 - 0.3 mg/dL [facility] Est Glomerular Filtration Rate 22(L) >=60 [facility] Comment: This estimated [...] the following links into your internet browser. [email or web address] Blood specimen (specimen) 11/27/2015 9:30 AM EDT 11/27/2015 9:46 AM EDT Narrative Resulting Agency Comment Spec In Lab Jennifer Amaro MD CHEMISTRY ROCHELLE JENNINGS [facility] Organization Address City/State/ZIP Co de Phone Number [facility] [place] [address] * Cholesterol, total (11/27/2015 9:30 AM EDT) Cholesterol, Total 152 <=199 mg/dL [facility] Comment: Recommendations of the NCEP Adult Treatment Panel for the following risk cutoff thresholds for the [place] population: Desirable: <200 mg/dL Borderline High: 200-239 mg/dL High: > or = 240 mg/dL Blood specimen (specimen) 11/27/2015 9:30 AM EDT 11/27/2015 9:46 AM EDT Narrative Resulting Agency Comment Spec In Lab Jennifer Amaro MD CHEMISTRY ROCHELLE JENNINGS [facility] [place] [address] documented in this encounter Visit Diagnoses Diagnosis H/O kidney transplant Kidney replaced by transplant documented in this encounter Care Teams Piece Goods Packer Relationship Specialty Start Date End Date Urbano Denis DO [address] [place] [address] PCP - General 09/03/12 03/17/22 Hai STANLEY,Ruchi Nurse Clinic Transplant Surgery 07/30/15 documented as of this encounter
--- OUTSIDE RECORDS SUMMARY | 2024-04-04 14:13 | XMS_ITS | Encounter Summary ---
Author Organization [facility] [place] [address] Care Team Providers Care Hand Binder Stripper Name Role Phone Urbano Denis DO Primary Care Provider Reason for Visit * Auth/Cert Specialty Diagnoses / Procedures Referred By Humberto flor Referred To Contact Diagnoses UTI (urinary tract infection) RECURRENT UTI/KIDNEY [place] 09/2015 Referral ID Status Reason Start Date Expiration Date Visits Re quested Visits Authorized [id number] 1 1 Encounter Details Date Type Department Care Team (Latest Contact Info) Description 12/04/2015 7:55 AM EDT Laboratory Appointment Lab [address] [place] [phone] Kidney replaced by transplant Social History Tobacco [...] PM EDT Office Visit Cardiology at [address] [phone] Jay Urban MD [facility] [address] [place] [address] 04/15/2024 10:00 AM EDT Hospital Encounter Non-[place] [address] Arrived documented as of this [...] 8:34 AM EDT) Neutrophil % 69.8 % [facility] Neutrophil Absolute 3.70 1.50 - 6.30 x10(3)/mcL [facility] Lymph % 21.3 % [facility] Lymphocytes Abs 1.1 1.0 - 3.6 x10(3)/[facility] Monocyte % 3.6 % [facility] Monocyte Abs 0.2 0.2 - 1.0 x10(3)/[facility] Eos % 3.0 % [facility] Eosinophils Abs 0.2 0.0 - 0.5 x10(3)/[facility] Basophil % 1.5 % [facility] Baso Absolute 0.1 0.0 - 0.2 x10(3)/[facility] Immature Gran % 0.80 % [facility] Comment: Immature granulocytes(IG's)percentage and absolute count will include metamyelocytes, myelocytes, and promyelocytes. Blood smears from CBCs yielding IG's will be scanned manually for concordance. If this scan disagrees with the automated IG or if promyelocytes are noted, a manual differential will be performed. Immature Gran Absolute 0.04 0.00 - 0.05 x10(3)/[facility] Blood specimen (specimen) 12/04/2015 8:34 AM EDT 12/04/2015 8:42 AM EDT Narrative Resulting Agency Comment Spec In Lab Tal Eagle MD HEMATOLOGY ORDERA BLES [facility] [place] [address] * (ABNORMAL) Hemogram (12/04/2015 8:34 AM EDT) White Blood Cell 5.3 4.0 - 10.0 x10(3)/mc L [facility] Red Blood Cell 4.35(L) 4.63 - 6.08 x10(6)/mc L [facility] Hemoglobin 13.9 13.7 - 17.5 gm/dL [facility] Hematocrit 40.2 40.0 - 51.0 % [facility] Mean Cell Volume 92.4(H) 79.0 - 92.0 fL [facility] Mean Cell Hemoglobin 32.0 25.6 - 32.2 pg [facility] Mean Cell Hemoglobin Concentration 34.6 32.0 - 36.5 gm/dL [facility] Platelet 255 145 - 370 x10(3)/mc L [facility] RDW Standard Deviation 48.0(H) 35.0 - 46.0 fL [facility] RDW coefficient of variation 14.2 10.9 - 14.4 % [facility] Mean Platelet Volume 9.6 9.0 - 12.0 fL [facility] Blood specimen (specimen) 12/04/2015 8:34 AM EDT 12/04/2015 8:42 AM EDT Narrative Resulting Agency Comment Spec In Lab Tal Eagle MD HEMATOLOGY ORDERA BLES [facility] [place] [address] * (ABNORMAL) Comprehensive metabolic panel (non-fasting) (12/04/2015 8:34 AM EDT) Glucose 149 65 - 199 mg/dL [facility] Comment:Diabetes: >=200 mg/d L plus symptoms Blood Urea Nitrogen 37(H) 10 - 20 mg/dL [facility] Creatinine 3.10(H) 0.80 - 1.50 mg/dL [facility] Comment: Please note that the pediatric reference intervals supplied above were [place] validated [place] [facility] Results from pediatric patients should be interpreted in conjunction to the patient's age, height and muscle mass. Sodium 141 135 - 145 mmol/L [facility] Anion Gap 18(H) 5 - 15 mmol/L [facility] Calcium 9.6 8.5 - 10.5 mg/dL [facility] Protein, Total 7.5 6.1 - 8.0 gm/dL [facility] Albumin 4.4 3.2 - 5.2 gm/dL [facility] Aspartate Aminotransferase 36 0 - 39 unit/L [facility] Alanine Aminotransferase 33 0 - 55 unit/L [facility] Alkaline Phosphatase 69 40 - 120 unit/L [facility] Bilirubin, Total 1.2 0.2 - 1.3 mg/dL [facility] Bilirubin, Direct 0.2 0.0 - 0.3 mg/dL [facility] Est Glomerular Filtration Rate 20(L) >=60 [facility] [...] the following links into your internet browser. [email or web address] Blood specimen (specimen) 12/04/2015 8:34 AM EDT 12/04/2015 8:42 AM EDT Narrative Resulting Agency Comment Spec In Lab Tal Eagle MD CHEMISTRY ORDERAB LES [facility] [place] [address] * (ABNORMAL) Magnesium (12/04/2015 8:34 AM EDT) Magnesium 0.65(L) 0.69 - 1.07 mmol/L [facility] Blood specimen (specimen) 12/04/2015 8:34 AM EDT 12/04/2015 8:42 AM EDT Narrative Resulting Agency Comment Spec In Lab Tal Eagle MD CHEMISTRY ORDERAB LES Performing Organization Address City/[facility]/ZIP Co de Phone Number [facility] [place] [address] * Phosphorus (12/04/2015 8:34 AM EDT) Phosphorus 3.9 2.5 - 4.5 mg/dL [facility] Blood specimen (specimen) 12/04/2015 8:34 AM EDT 12/04/2015 8:42 AM EDT Narrative Resulting Agency Comment Spec In Lab Tal Eagle MD CHEMISTRY ORDERAB LES Performing Organization Address City/[facility] Co de Phone Number [facility] [place] [address] * (ABNORMAL) Uric acid (12/04/2015 8:34 AM EDT) Uric Acid 11.8(H) 3.5 - 8.5 mg/dL [facility] Blood specimen (specimen) 12/04/2015 8:34 AM EDT 12/04/2015 8:42 AM EDT Narrative Resulting Agency Comment Spec In Lab Tal Eagle MD CHEMISTRY ORDERAB LES Performing Organization Address City/[facility] Co de Phone Number [facility] [place] [address] * Tacrolimus level (12/04/2015 8:34 AM EDT) Tacrolimus 6.3 ng/mL [facility] Comment:Trough therapeutic: 5-15 ng/mL Blood specimen (specimen) 12/04/2015 8:34 AM EDT 12/04/2015 10:56 AM EDT Narrative Resulting Agency Comment Spec In Lab Tal Eagle MD CHEMISTRY ORDERAB LES Performing Organization Address [facility] Co de Phone Number [facility] [place] [address] * Reticulocyte Count (12/04/2015 8:34 AM EDT) Reticulocyte % 1.4 0.5 - 2.4 % [facility] Retic Abs # 0.060 0.027 - 0.095 x10(6)/mcL [facility] Immature Retic% 4.1 2.3 - 15.9 % [facility] Reticulated Hgb 33.7 28.5 - 38.9 pg [facility] Immature Plt % 1.7 0.0 - 7.4 % [facility] Blood specimen (specimen) 12/04/2015 8:34 AM EDT 12/04/2015 8:42 AM EDT Narrative Resulting Agency Comment Spec In Lab Tal Eagle MD HEMATOLOGY ORDERA BLES Performing Organization Address [facility] Co de Phone Number [facility] [place] [address] * Cholesterol, total (12/04/2015 8:34 AM EDT) Cholesterol, Total 154 <=199 mg/dL [facility] Comment: Recommendations of the NCEP Adult Treatment Panel for the following risk cutoff thresholds for the [place] population: Desirable: <200 mg/dL Borderline High: 200-239 mg/dL High: > or = 240 mg/dL Blood specimen (specimen) 12/04/2015 8:34 AM EDT 12/04/2015 8:42 AM EDT Narrative Resulting Agency Comment Spec In Lab Tal Eagle MD CHEMISTRY ORDERAB LES Performing Organization Address City/[facility]/ZIP Co de Phone Number [facility] [place] [address] * Protein/Creatinine Ratio, urine (12/04/2015 8:30 AM EDT) Creatinine, Urine 69 mg/dL [facility] Protein, Urine <6 0 - 12 mg/dL [facility] Protein / Creatinine Ratio, Urine <0.1 ratio [facility] Urine specimen (specimen) 12/04/2015 8:30 AM EDT 12/04/2015 8:44 AM EDT Narrative Resulting Agency Comment Spec In Lab Tal Eagle MD URINE ORDERABLES [facility] [place] [address] * (ABNORMAL) Urinalysis with reflex Culture (12/04/2015 [...] LABORATORY Leukocytes, Urine Dipstick Negative Negative [facility] Appearance, Urine Dipstick Clear Clear [facility] Specific [place] Urine Automated 1.008 1.002 - 1.030 [facility] Color, Urine Dipstick Straw Yellow [facility] RBC, Urine 1 0 - 3 /HPF [facility] WBC, Urine 4(H) 0 - 3 /HPF [facility] Bacteria, Urine Rare(A) None /HPF [facility] Squamous Epithelial Cells, Urine <1 <=4 /HPF [facility] Reflex to Culture No [facility] Urine specimen (specimen) 12/04/2015 8:30 AM EDT 12/04/2015 8:42 AM EDT Narrative Resulting Agency Comment Spec In Lab Tal Eagle MD URINE ORDERABLES [facility] [place] [address] documented in this encounter Visit Diagnoses Diagnosis Kidney replaced by transplant documented in this encounter Care Teams Hand Binder Stripper Relationship Specialty Start Date End Date Urbano Denis DO [address] [place] [address] PCP - General 09/03/12 03/17/22 Ruchi Valles RN Nurse Clinic Transplant Surgery 07/30/15 documented as of this encounter
--- OUTSIDE RECORDS SUMMARY | 2024-04-04 14:13 | XMS_ITS | Encounter Summary ---
Author Organization [facility] [place] [address] Care Team Providers Care Digital Asset Coordinator Name Role Phone Urbano Denis DO Primary Care Provider [phone] Reason for Visit * Auth/Cert Specialty Diagnoses / Procedures Referred By Humberto flor Referred To Contact Diagnoses UTI (urinary tract infection) RECURRENT UTI/KIDNEY [place] 09/2015 Referral ID Status Reason Start Date Expiration Date Visits Re quested Visits Authorized [id number] 1 1 Encounter Details Date Type Department Care Team (Late st Contact Info) Description 12/07/2015 8:30 AM EDT Office [place] [address] Jennifer Amaro MD [facility] [place] [address] Kidney replaced by transplant Social History Tobacco [...] performed by Jennifer Amaro MD at [facility] OR ??? Pro transplantation of kidney N/A 09/16/2015 @KIDNEY TRANSPLANT, WITHOUT RECIPIENT NEPHRECTOMY performed by Franko Larkin MD at [facility] OR ??? Pro transplant, prep cadaver renal graft N/A 09/16/2015 @PREPARATION CADAVERIC RENAL ALLOGRAFT performed by Franko Larkin MD at [facility] OR ??? N/A 09/16/2015 ORGAN ACQUISITION RENAL, CADAVERIC performed by Franko Larkin MD at [facility] OR Family History: No family history on [...] 1030 Total infusion: 2L Samia Escalante RN [facility] Solid Organ Transplant [phone] (Pager: [phone]) documented in this encounter Plan of Treatment Upcoming Encounters Date Type Department Care Team (Late st Contact Info) Description 04/08/2024 1:40 PM EDT Office Visit Cardiology at [address] [phone] Jay Urban MD [facility] [place] [address] 04/15/2024 10:00 AM EDT Hospital Encounter Non-Invasive [place] [phone] Arrived documented as of this encounter Procedures [...] which inactivates penicillins, cephalosporins, and aztreonam. (A) [facility] Organism Klebsiella oxytoca(A) [facility] Urine specimen (specimen) 12/07/2015 10:20 [...] Jennifer Amaro MD MICROBIOLOGY - GENERAL ORDERABLES [facility] [place] [address] * (ABNORMAL) Urinalysis with reflex Culture (12/07/2015 [...] HOSPITAL LABORATORY Leukocytes, Urine Dipstick Trace(A) Negative [facility] Appearance, Urine Dipstick Clear Clear [facility] Specific [place] Urine Automated 1.005 1.002 - 1.030 [facility] Color, Urine Dipstick Straw Yellow [facility] RBC, Urine 2 0 - 3 /HPF [facility] WBC, Urine 5(H) 0 - 3 /HPF [facility] Bacteria, Urine Moderate(A) None /HPF [facility] Reflex to Culture Yes [facility] Urine specimen (specimen) 12/07/2015 10:20 AM EDT 12/07/2015 10:29 AM EDT Narrative Resulting Agency Comment Spec In Lab Jennifer Amaro MD URINE ORDERABL ES [facility] [place] [address] * (ABNORMAL) Blood culture (12/07/2015 9:12 AM EDT) Blood Culture Klebsiella oxytoca detected by PCR This organism expresses extended spectrum beta-lactamase which inactivates penicillins, cephalosporins, and aztreonam. Isolate saved. If future testing is required, contact the Microbiology Manager Content. (A) [facility] Gram Stain Bottle Growth detected in aerobic and anaerobic bottles. Gram Negative Rods seen (A) [facility] Organism Klebsiella oxytoca(A) [facility] Organism Gram Negative Rods(A) [facility] Blood specimen (specimen) 12/07/2015 9:12 [...] Jennifer Amaro MD MICROBIOLOGY - BLOOD ORDERABLES [facility] [address] [place] [address] * (ABNORMAL) Urinalysis with reflex Culture (12/07/2015 [...] 8.0 [facility] Blood, Urine Dipstick Large(A) Negative mg/dL [facility] Ketone, Urine Dipstick Negative Negative mg/dL [facility] Nitrite, Urine Dipstick Negative Negative [facility] Leukocytes, Urine Dipstick Large(A) Negative [facility] Appearance, Urine Dipstick Hazy(A) Clear [facility] Specific [place] Urine Automated 1.011 1.002 - 1.030 [facility] Color, Urine Dipstick Yellow Yellow [facility] RBC, Urine 38(H) 0 - 3 /HPF [facility] WBC, Urine 56(H) 0 - 3 /HPF [facility] WBC Clumps, Urine Rare(A) None /HPF [facility] Bacteria, Urine Rare(A) None /HPF [facility] Hyaline Casts, Urine 1 0 - 2 /LPF [facility] Reflex to Culture Yes [facility] Urine specimen (specimen) 12/07/2015 8:10 AM EDT 12/07/2015 8:17 AM EDT Narrative Resulting Agency Comment Spec In Lab Jennifer Amaro MD URINE ORDERABL ES Performing Organization Address [facility] Co de Phone Number [facility] [place] [address] * (ABNORMAL) Protein/Creatinine Ratio, urine (12/07/2015 8:09 AM EDT) Creatinine, Urine 97 mg/dL [facility] Protein, Urine 52(H) 0 - 12 mg/dL [facility] Protein / Creatinine Ratio, Urine 0.5 ratio [facility] Urine specimen (specimen) 12/07/2015 8:09 AM EDT 12/07/2015 8:15 AM EDT Narrative Resulting Agency Comment Spec In Lab Jennifer Amaro MD URINE ORDERABL ES Performing Organization Address City/[facility] Co de Phone Number [facility] [place] [address] * (ABNORMAL) Comprehensive metabolic panel (non-fasting) (12/07/2015 7:55 AM EDT) Glucose 155 65 - 199 mg/dL [facility] Comment:Diabetes: >=200 mg/d L plus symptoms Blood Urea Nitrogen 31(H) 10 - 20 mg/dL [facility] Creatinine 2.98(H) 0.80 - 1.50 mg/dL [facility] Comment: Please note that the pediatric reference intervals supplied above were not validated at [facility]. Results from pediatric patients should be interpreted in conjunction to the patient's age, height and muscle mass. Sodium 139 135 - 145 mmol/L [facility] Potassium 4.6 3.5 - 5.0 mmol/L [facility] [...] 10.5 mg/dL [facility] Protein, Total 8.1(H) 6.1 - 8.0 gm/dL [facility] Albumin 4.5 3.2 - 5.2 gm/dL [facility] Aspartate Aminotransferase 24 0 - 39 unit/L [facility] Alanine Aminotransferase 22 0 - 55 unit/L [facility] Alkaline Phosphatase 76 40 - 120 unit/L [facility] Bilirubin, Total 0.9 0.2 - 1.3 mg/dL [facility] Bilirubin, Direct 0.3 0.0 - 0.3 mg/dL [facility] Est Glomerular Filtration Rate 21(L) >=60 [facility] Comment: This estimated [...] the following links into your internet browser. [email or web address] Blood specimen (specimen) 12/07/2015 7:55 AM EDT 12/07/2015 8:01 AM EDT Narrative Resulting Agency Comment Spec In Lab Jennifer Amaro MD CHEMISTRY ROCHELLE JENNINGS Performing Organization Address [facility] Co de Phone Number [facility] [place] [address] * (ABNORMAL) Magnesium (12/07/2015 7:55 AM EDT) Magnesium 0.65(L) 0.69 - 1.07 mmol/L [facility] Blood specimen (specimen) 12/07/2015 7:55 AM EDT 12/07/2015 8:01 AM EDT Narrative Resulting Agency Comment Spec In Lab Jennifer Amaro MD CHEMISTRY ROCHELLE JENNINGS Performing Organization Address [facility] Co de Phone Number [facility] [place] [address] * Phosphorus (12/07/2015 7:55 AM EDT) Phosphorus 3.0 2.5 - 4.5 mg/dL [facility] Blood specimen (specimen) 12/07/2015 7:55 AM EDT 12/07/2015 8:01 AM EDT Narrative Resulting Agency Comment Spec In Lab Jennifer Amaro MD CHEMISTRY ROCHELLE JENNINGS Performing Organization Address [facility] Co de Phone Number [facility] [place] [address] * (ABNORMAL) Uric acid (12/07/2015 7:55 AM EDT) Uric Acid 11.1(H) 3.5 - 8.5 mg/dL [facility] Blood specimen (specimen) 12/07/2015 7:55 AM EDT 12/07/2015 8:01 AM EDT Narrative Resulting Agency Comment Spec In Lab Jennifer Amaro MD CHEMISTRY ROCHELLE JENNINGS [facility] [place] [address] * Tacrolimus level (12/07/2015 7:55 AM EDT) Tacrolimus 5.6 ng/mL [facility] Comment:Trough therapeutic: 5-15 ng/mL Blood specimen (specimen) 12/07/2015 7:55 AM EDT 12/07/2015 10:52 AM EDT Narrative Resulting Agency Comment Spec In Lab Jennifer Amaro MD CHEMISTRY ROCHELLE JENNINGS Performing Organization Address [facility] Co de Phone Number [facility] [place] [address] * Reticulocyte Count (12/07/2015 7:55 AM EDT) [facility] Reticulocyte % 1.8 0.5 - 2.4 % [facility] Retic Abs # 0.080 0.027 - 0.095 x10(6)/mcL [facility] Immature Retic% 3.8 2.3 - 15.9 % [facility] Reticulated Hgb 34.0 28.5 - 38.9 pg [facility] Immature Plt % 1.2 0.0 - 7.4 % [facility] Blood specimen (specimen) 12/07/2015 7:55 AM EDT 12/07/2015 8:01 AM EDT Narrative Resulting Agency Comment Spec In Lab Jennifer Amaro MD HEMATOLOGY ORD ERABLES Performing Organization Address City/[facility]/ZIP Co de Phone Number [facility] [place] [address] * Cholesterol, total (12/07/2015 7:55 AM EDT) Cholesterol, Total 150 <=199 mg/dL [facility] Comment: Recommendations of the NCEP Adult Treatment Panel for the following risk cutoff thresholds for the [place] population: Desirable: <200 mg/dL Borderline High: 200-239 mg/dL High: > or = 240 mg/dL Blood specimen (specimen) 12/07/2015 7:55 AM EDT 12/07/2015 8:01 AM EDT Narrative Resulting Agency Comment Spec In Lab Jennifer Amaro MD CHEMISTRY ROCHELLE JENNINGS Performing Organization Address City/State/[facility] Co de Phone Number [facility] [place] [address] documented in this encounter Visit Diagnoses Diagnosis Kidney replaced by transplant documented in this encounter Care Teams Digital Asset Coordinator Relationship Specialty Start Date End Date Urbano Denis DO [address] [place] [address] PCP - General 09/03/12 03/17/22 Ruchi Valles RN Nurse Clinic Transplant Surgery 07/30/15 documented as of this encounter
--- OUTSIDE RECORDS SUMMARY | 2024-04-04 14:13 | XMS_ITS | Encounter Summary ---
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 Referral ID Status Reason Start Date Expiration Date Visits Re quested Visits Authorized [id number] 1 1 Encounter Details Date Type Department Care Team (Late st Contact Info) Description 12/07/2015 10:26 AM EDT - 12/13/2015 1:51 PM EDT Hospital Encounter [address] [place] [address] Jennifer Amaro MD [facility] [place] [address] Tal Eagle MD [facility] [place] [address] Tachycardia Discharge Disposition: Home Social History Tobacco [...] 9:00 AM DERRICK, STEPHANIE L Lab 3L [facility] 12/28/2015 10:00 AM Tal Eagle MD Leb [...] Department anytime (day, night, weekend, holiday) at [phone] . After hours, please follow the instructions on the message. You can also reach the it project coordinator after hours by calling (ask for the it project coordinator on-call). General Instructions None Provider Contact Information: [phone] Signed: JOHN DANG MD 12/13/2015 I reviewed [...] the message. You can also reach the it project coordinator after hours by calling (ask for the it project coordinator on-call). documented in this encounter Medications [...] PM EDT DEVORA Phelan, MSN, RN P: [phone] Service: Transplant This onsite case manager spoke with patient and patient states he does not want Visiting nurses when he returns home. If he needs catheter supplies, he does not want to have [facility] as his supplier. Will discuss further discharge [...] DISPO: 4w JOHN DANG MD 12/12/2015 Pager [phone] I reviewed all of the above findings [...] time. Recommendation: Patient to be seen by Pharmacoepidemiologist daily for meal choices. Check weight every [...] DISPO: 4w JOHN DANG MD 12/11/2015 Pager [phone] I reviewed all of the above findings [...] - Start ciprofloxacin 500mg PO BID - Measurement Psychologist on importance of not taking dairy products, multivitamins, calcium supplements, or divalent cation-containing antacids within 2 hours of taking ciprofloxacin - Duration 14 days from 12/08 to 12/22 Recommendations discussed with primary treating team. ID consult service will continue to follow. Page [phone] with questions or concerns. X Recommendations are above. ID will sign off. If clinical changes occur or new questions arise, [id number]. Patient discussed with ID attending Dr. Yuliet FATIMA MD Fellow, Infectious Disease 12/11/2015 Pager [phone] Attending Addendum: I have seen and examined the patient, reviewed the data and agree with the note by Dr. Fatima. * Angie Rodriguez RN - 12/10/2015 3:27 PM EDT Office of Care Management (OCM) / Sawmill Supervisor(CM)/ Initial Assessment Discussed patient with Provider Team [...] following 11/11 discharge and received those at [facility]. CURRENT FUNCTIONAL STATUS: At functional baseline SOCIAL / FAMILY SUPPORTS: Supportive who is able to assist if needed. ADVANCE DIRECTIVES: Does not have-verbalizing frustration that people always ask me this after thesurgery. He would identify his as person to assist with medical decision making if needed andwas not interested in filling out paperwork. HEALTH /PRESCRIPTION COVERAGE: Medicare and [employer]-he does not have prescription coverage CURRENT HOME/COMMUNITY SERVICES/EQUIPMENT: DME: none Home Health Agency:none Other:n/a RN HEMATOLOGY REFERRAL: not needed at this time: PRIMARY CARE PHYSICIAN: [place] DENIS DO [address] / [facility] [id number] POTENTIAL DISCHARGE NEEDS: None anticipated at this time-if he does require IV antibiotics would prefer out patient at [facility] ANTICIPATED BARRIERS TO DISCHARGE: none at [...] DISPO: 4w JOHN DANG MD 12/10/2015 Pager [phone] I reviewed all of the above findings [...] ID consult service will continue to follow.Page [phone] with questions or concerns. Recommendations are above. ID will sign off. If clinical changes occur or new questions arise, [id number]. Patient discussed with ID attending Dr. Yuliet FATIMA MD Fellow, Infectious Disease 12/10/2015 Pager [phone] Attending Addendum: I have seen and examined the patient, reviewed the data and agree with the note by Dr. Fatima. * Joseph Plsacencia MD - 12/09/2015 2:28 PM EDT Follow-up [...] DISPO: 4w Marcus Saravia MD 12/09/2015 Pager [phone] Associated attestation - Jennifer Amaro MD - [...] OOB PROPHYLAXIS: bactrim, RBO, PPI DISPO: 4w JONH DANG MD PGY-1 12/09/2015 Pager [phone] Associated attestation - Jennifer Amaro MD - [...] Saravia MD - 12/07/2015 10:53 AM EDT [facility] Department of Transplant Surgery Inpatient [...] EXTREMITY performed by Jennifer Amaro MD at [facility] MAIN OR ??? 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 Pro transplant, prep cadaver renal graft N/A 09/16/2015 @PREPARATION CADAVERIC RENAL ALLOGRAFT performed by Franko Larkin MD at [facility] MAIN OR ??? N/A 09/16/2015 ORGAN ACQUISITION RENAL, CADAVERIC performed by Franko Larkin MD at [facility] MAIN OR ALL: No Known Allergies [...] mcL Appearance UA Hazy (A) Clear Spec [place] UA 1.011 1.002 - 1.030 Color UA [...] mcL Appearance UA Clear Clear Spec [place] UA 1.005 1.002 - 1.030 Color UA [...] Marcus Saravia MD 12/07/2015 Transplant service pager [phone] Associated attestation - Jennifer Amaro MD - [...] EXTREMITY performed by Jennifer Amaro MD at [facility] OR [...] Larkin MD at [facility] OR No family history on file. Social [...] Shagufta Villasenor MD Nephrology fellow Pager # [phone] I reviewed all of the above findings [...] beginning of the shift, use of call robels when needing assistance and patient safety discussed. [...] EXTREMITY performed by Jennifer Amaro MD at [facility] MAIN OR ??? 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 Pro transplant, prep cadaver renal graft N/A 09/16/2015 @PREPARATION CADAVERIC RENAL ALLOGRAFT performed by Franko Larkin MD at [facility] MAIN OR ??? N/A 09/16/2015 ORGAN ACQUISITION RENAL, CADAVERIC performed by Franko Larkin MD at [facility] MAIN OR Social History and Habits: [...] The U/A obtained off a clean catheter ([id number]) does not have a particularly large number [...] continue to follow patient. Page us at [phone] with any further questions or concerns. Recommendations are above and were discussed with the primary treating team. ID will sign off. Please page if further consultation required. This patient was seen and discussed with ID attending Dr. Yuliet FATIMA MD Fellow, Infectious Disease 12/07/2015 Pager [phone] Attending Addendum: I have seen and examined the patient, reviewed the data and agree with the note by Dr. Fatima. documented in this encounter Plan of Treatment Upcoming Encounters Date Type Department Care Team (Late st Contact Info) Description 04/08/2024 1:40 PM EDT Office Visit Cardiology at [address] [address] Jay Urban MD [facility] [place] [address] 04/15/2024 10:00 AM EDT Hospital Encounter Non[place] [id number] Arrived documented as of this encounter Procedures [...] (12/13/2015 7:45 AM EDT) Tacrolimus 5.7 ng/mL [facility] Comment:Trough therapeutic: 5-15 ng/mL Blood specimen (specimen) 12/13/2015 7:45 AM EDT 12/13/2015 10:53 AM EDT Narrative Resulting Agency Comment Spec In Lab Tal Eagle MD CHEMISTRY ORDERAB LES Performing Organization Address City/[facility]/[place] [address] * (ABNORMAL) Differential, Automated (12/13/2015 5:38 AM EDT) Neutrophil % 54.5 % [facility] Neutrophil Absolute 1.50 1.50 - 6.30 x10(3)/mc L [facility] Lymph % 28.4 % [facility] Lymphocytes Abs 0.8(L) 1.0 - 3.6 x10(3)/mc L [facility] Monocyte % 12.0 % [facility] Monocyte Abs 0.3 0.2 - 1.0 x10(3)/mc L [facility] Eos % 2.2 % [facility] Eosinophils Abs 0.1 0.0 - 0.5 x10(3)/ L [facility] Basophil % 1.8 % [facility] Baso Absolute 0.0 0.0 - 0.2 x10(3)/mc L [facility] Immature Gran % 1.10 % [facility] Comment: Immature granulocytes(IG's)percentage and absolute count will include metamyelocytes, myelocytes, and promyelocytes. Blood smears from CBCs yielding IG's will be scanned manually for concordance. If this scan disagrees with the automated IG or if promyelocytes are noted, a manual differential will be performed. Immature Gran Absolute 0.03 0.00 - 0.05 x10(3)/mc L [facility] Blood specimen (specimen) 12/13/2015 5:38 AM EDT 12/13/2015 6:05 AM EDT Narrative Resulting Agency Comment Spec In Lab Tal Eagle MD HEMATOLOGY ORDERA BLES Performing Organization Address City/[facility]/[place] [address] * (ABNORMAL) Hemogram (12/13/2015 5:38 AM EDT) White Blood Cell 2.8(L) 4.0 - 10.0 x10(3)/mc L [facility] Red Blood Cell 4.07(L) 4.63 - 6.08 x10(6)/mc L [facility] Hemoglobin 12.7(L) 13.7 - 17.5 gm/dL [facility] Hematocrit 36.8(L) 40.0 - 51.0 % [facility] Mean Cell Volume 90.4 79.0 - 92.0 fL [facility] Mean Cell Hemoglobin 31.2 25.6 - 32.2 pg [facility] Mean Cell Hemoglobin Concentration 34.5 32.0 - 36.5 gm/dL [facility] Platelet 210 145 - 370 x10(3)/[facility]ORATORY RDW Standard Deviation 43.6 35.0 - 46.0 fL [facility] RDW coefficient of variation 13.3 10.9 - 14.4 % [facility] Mean Platelet Volume 9.7 9.0 - 12.0 fL [facility] Blood specimen (specimen) 12/13/2015 5:38 AM EDT 12/13/2015 6:05 AM EDT Narrative Resulting Agency Comment Spec In Lab Tal Eagle MD HEMATOLOGY ORDERA BLES [facility] [place] [address] * Phosphorus (12/13/2015 5:38 AM EDT) Phosphorus 2.7 2.5 - 4.5 mg/dL [facility] Blood specimen (specimen) 12/13/2015 5:38 AM EDT 12/13/2015 6:05 AM EDT Narrative Resulting Agency Comment Spec In Lab Tal Eagle MD CHEMISTRY ORDERAB LES Performing Organization Address City/[facility]/ZIP Co de Phone Number [facility] [place] [place] [address] * Magnesium (12/13/2015 5:38 AM EDT) [facility] Magnesium 0.71 0.69 - 1.07 mmol/L [facility] Blood specimen (specimen) 12/13/2015 5:38 AM EDT 12/13/2015 6:05 AM EDT Narrative Resulting Agency Comment Spec In Lab Tal Eagle MD CHEMISTRY ORDERAB LES Performing Organization Address [facility] [place] Co de Phone Number [facility] [place] [place] [address] * (ABNORMAL) Basic Metabolic Panel (non-fasting) (12/13/2015 5:38 AM EDT) [facility] Glucose 144 65 - 199 mg/dL [facility] Comment:Diabetes: >=200 mg/d L plus symptoms Blood Urea Nitrogen 16 10 - 20 mg/dL [facility] Creatinine 1.56(H) 0.80 - 1.50 mg/dL [facility] Comment: Please note that the pediatric reference intervals supplied above were not validated at [facility]. Results from pediatric patients should be interpreted [...] LABORATORY Est Glomerular Filtration Rate 45(L) >=60 [facility] Comment: This estimated [...] the following links into your internet browser. [email or web address] Blood specimen (specimen) 12/13/2015 5:38 AM EDT 12/13/2015 6:05 AM EDT Narrative Resulting Agency Comment Spec In Lab Tal Eagle MD CHEMISTRY ORDERAB LES [facility] [place] [place] [address] * (ABNORMAL) Basic Metabolic Panel (non-fasting) (12/12/2015 4:08 PM EDT) Glucose 150 65 - 199 mg/dL [facility] Comment:Diabetes: >=200 mg/d L plus symptoms Blood Urea Nitrogen 14 10 - 20 mg/dL [facility] Creatinine 1.68(H) 0.80 - 1.50 mg/dL [facility] Comment: Please note that the pediatric reference intervals supplied above were not validated at [facility]. Results from pediatric patients should be interpreted [...] LABORATORY Est Glomerular Filtration Rate 41(L) >=60 [facility] Comment: This estimated [...] the following links into your internet browser. [email or web address] Blood specimen (specimen) 12/12/2015 4:08 PM EDT 12/12/2015 4:13 PM EDT Narrative Resulting Agency Comment Spec In Lab Tal Eagle MD CHEMISTRY ORDERAB LES [facility] [place] [place] [address] * (ABNORMAL) Differential, Automated (12/12/2015 6:14 AM EDT) Neutrophil % 52.9 % [facility] Neutrophil Absolute 1.42(L) 1.50 - 6.30 x10(3)/mc L [facility] Lymph % 27.6 % [facility] Lymphocytes Abs 0.7(L) 1.0 - 3.6 x10(3)/mc L [facility] Monocyte % 12.7 % [facility] Monocyte Abs 0.3 0.2 - 1.0 x10(3)/mc L [facility] Eos % 3.4 % [facility] Eosinophils Abs 0.1 0.0 - 0.5 x10(3)/mc L [facility] Basophil % 1.9 % [facility] Baso Absolute 0.0 0.0 - 0.2 x10(3)/[facility] LABORATORY Immature Gran % 1.50 % [facility] Comment: Immature granulocytes(IG's)percentage and absolute count will include metamyelocytes, myelocytes, and promyelocytes. Blood smears from CBCs yielding IG's will be scanned manually for concordance. If this scan disagrees with the automated IG or if promyelocytes are noted, a manual differential will be performed. Immature Gran Absolute 0.04 0.00 - 0.05 x10(3)/[facility] LABORATORY Blood specimen (specimen) 12/12/2015 6:14 AM EDT 12/12/2015 6:33 AM EDT Narrative Resulting Agency Comment Spec In Lab Jennifer Amaro MD HEMATOLOGY ORD ERABLES [facility] [place] [place] [address] * (ABNORMAL) Hemogram (12/12/2015 6:14 AM EDT) White Blood Cell 2.7(L) 4.0 - 10.0 x10(3)/[facility] Red Blood Cell 4.26(L) 4.63 - 6.08 x10(6)/[facility] Hemoglobin 13.6(L) 13.7 - 17.5 gm/dL [facility] Hematocrit 37.8(L) 40.0 - 51.0 % [facility] Mean Cell Volume 88.7 79.0 - 92.0 fL [facility] Mean Cell Hemoglobin 31.9 25.6 - 32.2 pg [facility] Mean Cell Hemoglobin Concentration 36.0 32.0 - 36.5 gm/dL [facility] Platelet 201 145 - 370 x10(3)/[facility]ORATORY RDW Standard Deviation 44.1 35.0 - 46.0 fL [facility] RDW coefficient of variation 13.7 10.9 - 14.4 % [facility] Mean Platelet Volume 9.3 9.0 - 12.0 fL [facility] Blood specimen (specimen) 12/12/2015 6:14 AM EDT 12/12/2015 6:33 AM EDT Narrative Resulting Agency Comment Spec In Lab Jennifer Amaro MD HEMATOLOGY ORD ERABLES Performing Organization Address City/[facility] Co de Phone Number [facility] [place] [place] [address] * (ABNORMAL) Phosphorus (12/12/2015 6:14 AM EDT) [facility] Phosphorus 2.4(L) 2.5 - 4.5 mg/dL [facility] Blood specimen (specimen) 12/12/2015 6:14 AM EDT 12/12/2015 6:33 AM EDT Narrative Resulting Agency Comment Spec In Lab Jennifer Amaro MD CHEMISTRY ORDBhargav JENNINGS Performing Organization Address [facility] [place] Co de Phone Number [facility] [place] [place] [address] * (ABNORMAL) Magnesium (12/12/2015 6:14 AM EDT) Pathologist [facility] Magnesium 0.63(L) 0.69 - 1.07 mmol/L [facility] Blood specimen (specimen) 12/12/2015 6:14 AM EDT 12/12/2015 6:33 AM EDT Narrative Resulting Agency Comment Spec In Lab Jennifer Amaro MD CHEMISTRY ORDBhargav JENNINGS Performing Organization Address [facility] [place] Co de Phone Number [facility] [place] [place] [address] * (ABNORMAL) Basic Metabolic Panel (non-fasting) (12/12/2015 6:14 AM EDT) Glucose 157 65 - 199 mg/dL [facility] Comment:Diabetes: >=200 mg/d L plus symptoms Blood Urea Nitrogen 14 10 - 20 mg/dL [facility] Creatinine 1.49 0.80 - 1.50 mg/dL [facility] Comment: Please note that the pediatric reference intervals supplied above were not validated at [facility]. Results from pediatric patients should be interpreted [...] LABORATORY Est Glomerular Filtration Rate 47(L) >=60 [facility] Comment: This estimated [...] the following links into your internet browser. [email or web address] Blood specimen (specimen) 12/12/2015 6:14 AM EDT 12/12/2015 6:33 AM EDT Narrative Resulting Agency Comment Spec In Lab Jennifer Amaro MD CHEMISTRY ROCHELLE JENNINGS [facility] Organization Address City/State/ZIP Co de Phone Number [facility] [place] [address] * Phosphorus (12/11/2015 3:37 PM EDT) Pathologist [facility] Phosphorus 2.7 2.5 - 4.5 mg/dL [facility] Blood specimen (specimen) 12/11/2015 3:37 PM EDT 12/11/2015 3:49 PM EDT Narrative Resulting Agency Comment Spec In Lab Tal Eagle MD CHEMISTRY ORDERAB LES Performing Organization Address [facility] Co de Phone Number [facility] [place] [address] * Magnesium (12/11/2015 3:37 PM EDT) [facility] Magnesium 0.75 0.69 - 1.07 mmol/L [facility] Blood specimen (specimen) 12/11/2015 3:37 PM EDT 12/11/2015 3:49 PM EDT Narrative Resulting Agency Comment Spec In Lab Tal Eagle MD CHEMISTRY ORDERAB LES Performing Organization Address [facility] Co de Phone Number [facility] [place] [address] * (ABNORMAL) Basic Metabolic Panel (non-fasting) (12/11/2015 3:37 PM EDT) [facility] Glucose 162 65 - 199 mg/dL [facility] Comment:Diabetes: >=200 mg/d L plus symptoms Blood Urea Nitrogen 15 10 - 20 mg/dL [facility] Creatinine 1.68(H) 0.80 - 1.50 mg/dL [facility] Comment: Please note that the pediatric reference intervals supplied above were not validated at [facility]. Results from pediatric patients should be interpreted [...] LABORATORY Est Glomerular Filtration Rate 41(L) >=60 [facility] Comment: This estimated [...] the following links into your internet browser. [email or web address] Blood specimen (specimen) 12/11/2015 3:37 PM EDT 12/11/2015 3:49 PM EDT Narrative Resulting Agency Comment Spec In Lab Tal Eagle MD CHEMISTRY ORDERAB LES Performing Organization Address City/[facility] Co de Phone Number [facility] [place] [address] * Urine culture Indwelling Catheter Urine (12/11/2015 7:34 AM EDT) Urine Culture No growth (Less than 1,000 cfu/ml). [facility] Urine specimen obtained via indwelling urinary catheter (specimen) 12/11/2015 7:34 AM EDT 12/11/2015 9:16 AM EDT Narrative Resulting Agency Comment Spec In Lab Jennifer Amaro MD MICROBIOLOGY - GENERAL ORDERABLES [facility] [place] [place] [address] * Blood culture (12/11/2015 7:12 AM EDT) Blood Culture No growth at 5 days. [facility] Blood specimen (specimen) STRUCTURE OF RIGHT HAND / Unknown 12/11/2015 7:12 AM EDT 12/11/2015 7:36 AM EDT Narrative Resulting Agency Comment Spec In Lab Tal Eagle MD MICROBIOLOGY - BL OOD ORDERABLES [facility] [place] [address] * (ABNORMAL) Differential, Automated (12/11/2015 6:50 AM EDT) Pathologist [facility] Neutrophil % 56.6 % [facility] Neutrophil Absolute 1.45(L) 1.50 - 6.30 x10(3)/mc L [facility] Lymph % 27.0 % [facility] Lymphocytes Abs 0.7(L) 1.0 - 3.6 x10(3)/mc L [facility] Monocyte % 7.8 % [facility] Monocyte Abs 0.2 0.2 - 1.0 x10(3)/mc L [facility] Eos % 5.5 % [facility] Eosinophils Abs 0.1 0.0 - 0.5 x10(3)/mc L [facility] Basophil % 2.3 % [facility] Baso Absolute 0.1 0.0 - 0.2 x10(3)/mc L [facility] Immature Gran % 0.80 % [facility] Comment: Immature granulocytes(IG's)percentage and absolute count will include metamyelocytes, myelocytes, and promyelocytes. Blood smears from CBCs yielding IG's will be scanned manually for concordance. If this scan disagrees with the automated IG or if promyelocytes are noted, a manual differential will be performed. Immature Gran Absolute 0.02 0.00 - 0.05 x10(3)/mc L [facility] Blood specimen (specimen) 12/11/2015 6:50 AM EDT 12/11/2015 7:10 AM EDT Narrative Resulting Agency Comment Spec In Lab Jennifer Amaro MD HEMATOLOGY ORD ERABLES [facility] [place] [place] [address] * (ABNORMAL) Hemogram (12/11/2015 6:50 AM EDT) White Blood Cell 2.6(L) 4.0 - 10.0 x10(3)/[facility] LABORATORY Red Blood Cell 4.03(L) 4.63 - 6.08 x10(6)/[facility] Hemoglobin 12.8(L) 13.7 - 17.5 gm/dL [facility] Hematocrit 37.0(L) 40.0 - 51.0 % [facility] Mean Cell Volume 91.8 79.0 - 92.0 fL [facility] Mean Cell Hemoglobin 31.8 25.6 - 32.2 pg [facility] Mean Cell Hemoglobin Concentration 34.6 32.0 - 36.5 gm/dL [facility] Platelet 194 145 - 370 x10(3)/[facility]ORATORY RDW Standard Deviation 45.2 35.0 - 46.0 fL [facility] RDW coefficient of variation 13.4 10.9 - 14.4 % [facility] Mean Platelet Volume 9.7 9.0 - 12.0 fL [facility] Blood specimen (specimen) 12/11/2015 6:50 AM EDT 12/11/2015 7:10 AM EDT Narrative Resulting Agency Comment Spec In Lab Jennifer Amaro MD HEMATOLOGY ORD ERABLES Performing Organization Address [facility]/ZIP Co de Phone Number [facility] [place] [address] * Blood culture (12/11/2015 6:50 AM EDT) Blood Culture No growth at 5 days. [facility] Blood specimen (specimen) STRUCTURE OF RIGHT HAND / Unknown 12/11/2015 6:50 AM EDT 12/11/2015 7:36 AM EDT Narrative Resulting Agency Comment Spec In Lab Tal Eagle MD MICROBIOLOGY - BL OOD ORDERABLES Performing Organization Address [facility] Co de Phone Number [facility] [place] [address] * (ABNORMAL) Phosphorus (12/11/2015 6:50 AM EDT) Phosphorus 2.2(L) 2.5 - 4.5 mg/dL [facility] Blood specimen (specimen) 12/11/2015 6:50 AM EDT 12/11/2015 7:10 AM EDT Narrative Resulting Agency Comment Spec In Lab Jennifer Amaro MD CHEMISTRY ORDE DICK Performing Organization Address [facility] Co de Phone Number [facility] [place] [address] * (ABNORMAL) Magnesium (12/11/2015 6:50 AM EDT) Magnesium 0.60(L) 0.69 - 1.07 mmol/L [facility] Blood specimen (specimen) 12/11/2015 6:50 AM EDT 12/11/2015 7:10 AM EDT Narrative Resulting Agency Comment Spec In Lab Jennifer Amaro MD CHEMISTRY ORDE DICK Performing Organization Address [facility]/ZIP Co de Phone Number [facility] [place] [address] * (ABNORMAL) Basic Metabolic Panel (non-fasting) (12/11/2015 6:50 AM EDT) Glucose 149 65 - 199 mg/dL [facility] Comment:Diabetes: >=200 mg/d L plus symptoms Blood Urea Nitrogen 13 10 - 20 mg/dL [facility] Creatinine 1.59(H) 0.80 - 1.50 mg/dL [facility] Comment: Please note that the pediatric reference intervals supplied above were not validated at [facility]. Results from pediatric patients should be interpreted [...] questions. Chloride 105 98 - 107 mmol/L [facility] Carbon Dioxide 24 22 - 31 mmol/L [facility] Anion Gap 14 5 - 15 mmol/L [facility] Calcium 8.9 8.5 - 10.5 mg/dL [facility] Est Glomerular Filtration Rate 44(L) >=60 [facility] Comment: This estimated [...] the following links into your internet browser. [email or web address] Blood specimen (specimen) 12/11/2015 6:50 AM EDT 12/11/2015 7:10 AM EDT Narrative Resulting Agency Comment Spec In Lab Christopher E Sondra MD CHEMISTRY ROCHELLE JENNINGS Performing Organization Address City/[facility]/ZIP Co de Phone Number [facility] [place] [address] * Phosphorus (12/10/2015 3:12 PM EDT) Pathologist [facility] Phosphorus 2.5 2.5 - 4.5 mg/dL [facility] Blood specimen (specimen) Venous Draw / Unknown 12/10/2015 3:12 PM EDT 12/10/2015 3:29 PM EDT Narrative Resulting Agency Comment Spec In Lab Jennifer Amaro MD CHEMISTRY ROCHELLE JENNINGS Performing Organization Address [facility] Co de Phone Number [facility] [place] [address] * Magnesium (12/10/2015 3:12 PM EDT) [facility] Magnesium 0.78 0.69 - 1.07 mmol/L [facility] Blood specimen (specimen) Venous Draw / Unknown 12/10/2015 3:12 PM EDT 12/10/2015 3:29 PM EDT Narrative Resulting Agency Comment Spec In Lab Jennifer Amaro MD CHEMISTRY ROCHELLE JENNINGS Performing Organization Address [facility] Co de Phone Number [facility] [place] [address] * (ABNORMAL) Basic Metabolic Panel (non-fasting) (12/10/2015 3:12 PM EDT) Glucose 164 65 - 199 mg/dL [facility] Comment:Diabetes: >=200 mg/d L plus symptoms Blood Urea Nitrogen 14 10 - 20 mg/dL [facility] Creatinine 1.81(H) 0.80 - 1.50 mg/dL [facility] Comment: Please note that the pediatric reference intervals supplied above were not validated at [facility]. Results from pediatric patients should be interpreted in conjunction to the patient's age, height and muscle mass. Sodium 144 135 - 145 mmol/L [facility] Est Glomerular Filtration Rate 38(L) >=60 [facility] Comment: This estimated [...] the following links into your internet browser. [email or web address] Blood specimen (specimen) 12/10/2015 3:12 PM EDT 12/10/2015 3:29 PM EDT Narrative Resulting Agency Comment Spec In Lab Jennifer Amaro MD CHEMISTRY ROCHELLE JENNINGS [facility] [place] [address] * US Renal Transplant Left (12/10/2015 2:36 PM EDT) [...] agree with the above interpretation. ? Preeti Holloway MD Electronically Signed Final Report ?? 12/10/2015 03:25 pm Narrative 12/10/2015 3:25 PM EDT Transplant ? (Signed Final 12/10/2015 03:25 pm) Patient Info ID #: ? [id number] ? : 46 (65 yrs) Name: ? ETHEL AKINS ? Visit Date:12/10/2015 02:33 pm Performed By Performed By: ? Osmar Dowd RDMS Attending: ?Jewel GERBER, Preeti Sanford Associate: ?Alfredito GERBER, Rocky Vela Referred By: ?JENINFER AAMRO MD Service(s) Provided ??URTPL - Ultrasound Renal Transplant - Left - [id number] Indications ??eval perinephric abscess Renal Allograft Size [...] Final 12/10/2015 03:25pm) Patient Info ID #: [id number] : 46 (65 yrs) Name: ETHEL AKINS Visit Date:12/10/2015 02:33 pm Performed By Performed By: Osmar Dowd RDMS Attending: Preeti Holloway MD Associate: Rocky Glaser MD Referred By: JENNIFER AMARO MD Service(s) Provided URTPL - Ultrasound Renal Transplant - Left - [id number] Indications eval perinephric abscess Renal Allograft Size [...] * Blood culture (12/10/2015 8:25 AM EDT) Blood Culture No growth at 5 days. [facility] Blood specimen (specimen) STRUCTURE OF RIGHT FOREARM / Unknown 12/10/2015 8:25 AM EDT 12/10/2015 9:03 AM EDT Narrative Resulting Agency Comment Spec In Lab Jennifer Amaro MD MICROBIOLOGY - BLOOD ORDERABLES Performing Organization Address [facility]/ZIP Co de Phone Number [facility] [place] [address] * Tacrolimus level (12/10/2015 8:25 AM EDT) Tacrolimus 5.0 ng/mL [facility] Comment:Trough therapeutic: 5-15 ng/mL Blood specimen (specimen) 12/10/2015 8:25 AM EDT 12/10/2015 11:08 AM EDT Narrative Resulting Agency Comment Spec In Lab Jennifer Amaro MD CHEMISTRY ORDE RABLENORE Performing Organization Address City/[facility]/ZIP Co de Phone Number [facility] [place] [address] * POCT Glucose (12/10/2015 6:59 AM EDT) Glucose, POC 171 65 - 199 mg/dL [facility] Comment: Supplemental ranges: <140 mg/dL before meals <180 mg/dL all other times of the day Blood specimen (specimen) 12/10/2015 6:59 AM EDT 12/10/2015 6:59 AM EDT Jennifer Amaro MD POINT OF CARE TEST ORDERABLES Performing Organization Address City/[facility]/[place] [address] * (ABNORMAL) Differential, Automated (12/10/2015 5:23 AM EDT) Neutrophil % 62.5 % [facility] Neutrophil Absolute 2.05 1.50 - 6.30 x10(3)/mc L [facility] Lymph % 25.0 % [facility] Lymphocytes Abs 0.8(L) 1.0 - 3.6 x10(3)/ L [facility] Monocyte % 6.4 % [facility] Monocyte Abs 0.2 0.2 - 1.0 x10(3)/ L [facility] Eos % 4.0 % [facility] Eosinophils Abs 0.1 0.0 - 0.5 x10(3)/ L [facility] Basophil % 1.5 % [facility] Baso Absolute 0.0 0.0 - 0.2 x10(3)/mc L [facility] Immature Gran % 0.60 % [facility] Comment: Immature granulocytes(IG's)percentage and absolute count will include metamyelocytes, myelocytes, and promyelocytes. Blood smears from CBCs yielding IG's will be scanned manually for concordance. If this scan disagrees with the automated IG or if promyelocytes are noted, a manual differential will be performed. Immature Gran Absolute 0.02 0.00 - 0.05 x10(3)/mc L [facility] Blood specimen (specimen) 12/10/2015 5:23 AM EDT 12/10/2015 5:42 AM EDT Narrative Resulting Agency Comment Spec In Lab Jennifer Amaro MD HEMATOLOGY ORD ERABLES Performing Organization Address City/[facility]/[place] [address] * (ABNORMAL) Hemogram (12/10/2015 5:23 AM EDT) Pathologist [facility] White Blood Cell 3.3(L) 4.0 - 10.0 x10(3)/ L [facility] Red Blood Cell 3.84(L) 4.63 - 6.08 x10(6)/[facility] Hemoglobin 12.1(L) 13.7 - 17.5 gm/dL [facility] Hematocrit 35.4(L) 40.0 - 51.0 % [facility] Mean Cell Volume 92.2(H) 79.0 - 92.0 fL [facility] Mean Cell Hemoglobin 31.5 25.6 - 32.2 pg [facility] Mean Cell Hemoglobin Concentration 34.2 32.0 - 36.5 gm/dL [facility] Platelet 154 145 - 370 x10(3)/[facility]ATORY RDW Standard Deviation 46.1(H) 35.0 - 46.0 fL [facility] RDW coefficient of variation 13.7 10.9 - 14.4 % [facility] Mean Platelet Volume 9.9 9.0 - 12.0 fL [facility] Blood specimen (specimen) 12/10/2015 5:23 AM EDT 12/10/2015 5:42 AM EDT Narrative Resulting Agency Comment Spec In Lab Jennifer Amaro MD HEMATOLOGY ORD ERABLES [facility] [place] [address] * Complement, Total (12/10/2015 5:23 AM EDT) Pathologist [facility] Complement, Total 42 30 - 75 unit/mL [facility] Comment: Test Performed by: [place] [address] Mortgage Processor: Edinson Garcia II, M.D., Ph.D. Blood specimen (specimen) 12/10/2015 5:23 AM EDT 12/10/2015 9:48 AM EDT Narrative Resulting Agency Comment Spec In Lab Jennifer Amaro MD CHEMISTRY ORDBhargav JENNINGS Performing Organization Address [facility] Co de Phone Number [facility] [place] [address] * C4 Complement (12/10/2015 5:23 AM EDT) Complement C4 37 10 - 40 mg/dL [facility] Blood specimen (specimen) 12/10/2015 5:23 AM EDT 12/10/2015 5:42 AM EDT Narrative Resulting Agency Comment Spec In Lab Jennifer Amaro MD CHEMISTRY ROCHELLE JENNINGS Performing Organization Address [facility] Co de Phone Number [facility] [place] [address] * C3 Complement (12/10/2015 5:23 AM EDT) Complement C3 129 90 - 180 mg/dL [facility] Blood specimen (specimen) 12/10/2015 5:23 AM EDT 12/10/2015 5:42 AM EDT Narrative Resulting Agency Comment Spec In Lab Jennifer Amaro MD CHEMISTRY ORDBhargav JENNINGS Performing Organization Address [facility] Co de Phone Number [facility] [place] [address] * (ABNORMAL) C1q Complement (12/10/2015 5:23 AM EDT) Complement C1Q (NOVEMBER) 23(H) 12 - 22 mg/dL [facility] Comment: ADDITIONAL INFORMATION Laboratory developed test Test Performed by: [facility] [address] [address] Mortgage Processor: Edinson Garcia II, M.D., Ph.D. Blood specimen (specimen) 12/10/2015 5:23 AM EDT 12/10/2015 8:53 AM EDT Narrative Resulting Agency Comment Spec In Lab Jennifer Amaro MD LAB SEND OUT O RDERABLES Performing Organization Address [facility] [place] [address] * Blood culture (12/10/2015 5:23 AM EDT) Blood Culture No growth at 5 days. [facility] Blood specimen (specimen) 12/10/2015 5:23 AM EDT 12/10/2015 6:07 AM EDT Comment:R HAND Narrative Resulting Agency Comment Spec In Lab Jennifer Amaro MD MICROBIOLOGY - BLOOD ORDERABLES Performing Organization Address [facility] [place] [address] * (ABNORMAL) Phosphorus (12/10/2015 5:23 AM EDT) Phosphorus 2.0(L) 2.5 - 4.5 mg/dL [facility] Blood specimen (specimen) 12/10/2015 5:23 AM EDT 12/10/2015 5:42 AM EDT Narrative Resulting Agency Comment Spec In Lab Jennifer Amaro MD CHEMISTRY ORDE RABLES Performing Organization Address [facility] [place] [address] * (ABNORMAL) Magnesium (12/10/2015 5:23 AM EDT) Magnesium 0.59(L) 0.69 - 1.07 mmol/L [facility] Blood specimen (specimen) 12/10/2015 5:23 AM EDT 12/10/2015 5:42 AM EDT Narrative Resulting Agency Comment Spec In Lab Jennifer Amaro MD CHEMISTRY ROCHELLE JENNINGS [facility] [place] [address] * (ABNORMAL) Basic Metabolic Panel (non-fasting) (12/10/2015 5:23 AM EDT) Glucose 137 65 - 199 mg/dL [facility] Comment:Diabetes: >=200 mg/d L plus symptoms Blood Urea Nitrogen 14 10 - 20 mg/dL [facility] Creatinine 1.75(H) 0.80 - 1.50 mg/dL [facility] Comment: Please note that the pediatric reference intervals supplied above were not validated at [facility]. Results from pediatric patients should be interpreted [...] questions. Chloride 105 98 - 107 mmol/L [facility] Carbon Dioxide 23 22 - 31 mmol/L [facility] Anion Gap 15 5 - 15 mmol/L [facility] Calcium 8.5 8.5 - 10.5 mg/dL [facility] Est Glomerular Filtration Rate 39(L) >=60 [facility] Comment: This estimated [...] the following links into your internet browser. [email or web address] Blood specimen (specimen) 12/10/2015 5:23 AM EDT 12/10/2015 5:42 AM EDT Narrative Resulting Agency Comment Spec In Lab Jennifer Amaro MD CHEMISTRY ROCHELLE JENNINGS [facility] [place] [address] * (ABNORMAL) Basic Metabolic Panel (non-fasting) (12/09/2015 3:00 PM EDT) Glucose 197 65 - 199 mg/dL [facility] Comment:Diabetes: >=200 mg/d L plus symptoms Blood Urea Nitrogen 19 10 - 20 mg/dL [facility] Creatinine 1.96(H) 0.80 - 1.50 mg/dL [facility] Comment: Please note that the pediatric reference intervals supplied above were not validated at [facility]. Results from pediatric patients should be interpreted [...] 15 mmol/L [facility] Calcium 8.3(L) 8.5 - 10.5 mg/dL [facility] Est Glomerular Filtration Rate 34(L) >=60 [facility] Comment: This estimated [...] the following links into your internet browser. [email or web address] Blood specimen (specimen) 12/09/2015 3:00 PM EDT 12/09/2015 3:07 PM EDT Narrative Resulting Agency Comment Spec In Lab Jennifer Amaro MD CHEMISTRY ORDBhargav JENNINGS Performing Organization Address [facility] Co de Phone Number [facility] [place] [address] * Sodium, urine, random (12/09/2015 12:24 PM EDT) Sodium, Urine 98 mmol/L [facility] Urine specimen (specimen) 12/09/2015 12:24 PM EDT 12/09/2015 12:36 PM EDT Narrative Resulting Agency Comment Spec In Lab Jennifer Amaro MD URINE ORDERABL ES Performing Organization Address [facility] de Phone Number [facility] [place] [address] * Blood culture (12/09/2015 10:32 AM EDT) Blood Culture No growth at 5 days. [facility] Blood specimen (specimen) ANTECUBITAL REGION STRUCTURE / Unknown 12/09/2015 10:32 AM EDT 12/09/2015 11:24 AM EDT Comment:2ND SET Narrative Resulting Agency Comment Spec In Lab Jennifer Amaro MD MICROBIOLOGY - BLOOD ORDERABLES Performing Organization Address [facility] Co de Phone Number [facility] [place] [address] * Blood culture (12/09/2015 10:20 AM EDT) Pathologist [facility] Blood Culture No growth at 5 days. [facility] Blood specimen (specimen) STRUCTURE OF RIGHT HAND / Unknown 12/09/2015 10:20 AM EDT 12/09/2015 11:31 AM EDT Comment:#1 Narrative Resulting Agency Comment Spec In Lab Jennifer Amaro MD MICROBIOLOGY - BLOOD ORDERABLES Performing Organization Address [facility]/ZIP Co de Phone Number [facility] [place] [address] * Urine culture Indwelling Catheter Urine (12/09/2015 9:58 AM EDT) [facility] Urine Culture No growth (Less than 1,000 cfu/ml). [facility] Urine specimen obtained via indwelling urinary catheter (specimen) 12/09/2015 9:58 AM EDT 12/09/2015 11:26 AM EDT Narrative Resulting Agency Comment Spec In Lab Jennifer Amaro MD MICROBIOLOGY - GENERAL ORDERABLES Performing Organization Address City/[facility]/ZIP Co de Phone Number [facility] [place] [address] * (ABNORMAL) Differential, Automated (12/09/2015 4:41 AM EDT) Neutrophil % 68.1 % [facility] Neutrophil Absolute 3.17 1.50 - 6.30 x10(3)/mc L [facility] Lymph % 18.3 % [facility] Lymphocytes Abs 0.8(L) 1.0 - 3.6 x10(3)/mc L [facility] Monocyte % 5.6 % [facility] Monocyte Abs 0.3 0.2 - 1.0 x10(3)/mc L [facility] Eos % 4.5 % [facility] Eosinophils Abs 0.2 0.0 - 0.5 x10(3)/ L [facility] Basophil % 0.9 % [facility] Baso Absolute 0.0 0.0 - 0.2 x10(3)/[facility] LABORATORY Immature Gran % 2.60 % [facility] Comment: Immature granulocytes(IG's)percentage and absolute count will include metamyelocytes, myelocytes, and promyelocytes. Blood smears from CBCs yielding IG's will be scanned manually for concordance. If this scan disagrees with the automated IG or if promyelocytes are noted, a manual differential will be performed. Immature Gran Absolute 0.12(H) 0.00 - 0.05 x10(3)/[facility]ORY Blood specimen (specimen) 12/09/2015 4:41 AM EDT 12/09/2015 4:56 AM EDT Narrative Resulting Agency Comment Spec In Lab Jennifer Amaro MD HEMATOLOGY ORD ERABLES [facility] [place] [address] * (ABNORMAL) Hemogram (12/09/2015 4:41 AM EDT) White Blood Cell 4.6 4.0 - 10.0 x10(3)/[facility] Red Blood Cell 3.82(L) 4.63 - 6.08 x10(6)/[facility]ORY Hemoglobin 12.2(L) 13.7 - 17.5 gm/dL [facility] Hematocrit 34.8(L) 40.0 - 51.0 % [facility] Mean Cell Volume 91.1 79.0 - 92.0 fL [facility] Mean Cell Hemoglobin 31.9 25.6 - 32.2 pg [facility] Mean Cell Hemoglobin Concentration 35.1 32.0 - 36.5 gm/dL [facility] Platelet 142(L) 145 - 370 x10(3)/mc L [facility] RDW Standard Deviation 46.4(H) 35.0 - 46.0 fL [facility] RDW coefficient of variation 14.0 10.9 - 14.4 % [facility] Mean Platelet Volume 9.9 9.0 - 12.0 fL [facility] Blood specimen (specimen) 12/09/2015 4:41 AM EDT 12/09/2015 4:56 AM EDT Narrative Resulting Agency Comment Spec In Lab Jennifer Amaro MD HEMATOLOGY ORD ERABLES Performing Organization Address City/[facility]/ZIP Co de Phone Number [facility] [place] [address] * Phosphorus (12/09/2015 4:41 AM EDT) Phosphorus 3.1 2.5 - 4.5 mg/dL [facility] Blood specimen (specimen) 12/09/2015 4:41 AM EDT 12/09/2015 4:56 AM EDT Narrative Resulting Agency Comment Spec In Lab Jennifer Amaro MD CHEMISTRY ROCHELLE JENNINGS Performing Organization Address City/[facility] Co de Phone Number [facility] [place] [address] * Magnesium (12/09/2015 4:41 AM EDT) Magnesium 0.80 0.69 - 1.07 mmol/L [facility] Blood specimen (specimen) 12/09/2015 4:41 AM EDT 12/09/2015 4:56 AM EDT Narrative Resulting Agency Comment Spec In Lab Jennifer Amaro MD CHEMISTRY ROCHELLE JENNINGS Performing Organization Address City/[facility]/ZIP Co de Phone Number [facility] [place] [address] * (ABNORMAL) Basic Metabolic Panel (non-fasting) (12/09/2015 4:41 AM EDT) Glucose 134 65 - 199 mg/dL [facility] Comment:Diabetes: >=200 mg/d L plus symptoms Blood Urea Nitrogen 21(H) 10 - 20 mg/dL [facility] Creatinine 2.16(H) 0.80 - 1.50 mg/dL [facility] Comment: Please note that the pediatric reference intervals supplied above were not validated at [facility]. Results from pediatric patients should be interpreted [...] LABORATORY Est Glomerular Filtration Rate 31(L) >=60 [facility] Comment: This estimated [...] the following links into your internet browser. [email or web address] Blood specimen (specimen) 12/09/2015 4:41 AM EDT 12/09/2015 4:56 AM EDT Narrative Resulting Agency Comment Spec In Lab Jennifer Amaro MD CHEMISTRY ORDE RABLES Performing Organization Address City/[facility]/ZIP Co de Phone Number [facility] [place] [address] * POCT Glucose (12/08/2015 8:28 PM EDT) Glucose, POC 109 65 - 199 mg/dL [facility] Comment: Supplemental ranges: <140 mg/dL before meals <180 mg/dL all other times of the day Blood specimen (specimen) 12/08/2015 8:28 PM EDT 12/08/2015 8:28 PM EDT Jennifer Amaro MD POINT OF CARE TEST ORDERABLES Performing Organization Address [facility] Co de Phone Number [facility] [place] [address] * (ABNORMAL) Magnesium (12/08/2015 3:59 PM EDT) [facility] Magnesium 0.64(L) 0.69 - 1.07 mmol/L [facility] LABORATORY Blood specimen (specimen) 12/08/2015 3:59 PM EDT 12/08/2015 4:05 PM EDT Narrative Resulting Agency Comment Spec In Lab Jennifer Amaro MD CHEMISTRY ORDBhargav JENNINGS Performing Organization Address [facility] Co de Phone Number [facility] [place] [address] * (ABNORMAL) Basic Metabolic Panel (non-fasting) (12/08/2015 3:59 PM EDT) Glucose 233(H) 65 - 199 mg/dL [facility] Comment:Diabetes: >=200 mg/d L plus symptoms Blood Urea Nitrogen 24(H) 10 - 20 mg/dL [facility] Creatinine 2.25(H) 0.80 - 1.50 mg/dL [facility] Comment: Please note that the pediatric reference intervals supplied above were not validated at [facility]. Results from pediatric patients should be interpreted in conjunction to the patient's age, height and muscle mass. Sodium 137 135 - 145 mmol/L [facility] Potassium 3.2(L) 3.5 - 5.0 mmol/L [facility] Comment: Please note: ??Patients with WBC >100,000 may have falsely elevated Potassium levels. ??For accurate Potassium quantification in these patients send serum separator tube (gold top) for subsequent determinations. ??Contact the Clinical Chemistry Laboratory if there are any questions. Chloride 99 98 - 107 mmol/L [facility] Carbon Dioxide 21(L) 22 - 31 mmol/L [facility] Anion Gap 17(H) 5 - 15 mmol/L [facility] Calcium 8.0(L) 8.5 - 10.5 mg/dL [facility] Est Glomerular Filtration Rate 29(L) >=60 [facility] Comment: This estimated [...] the following links into your internet browser. [email or web address] Blood specimen (specimen) 12/08/2015 3:59 PM EDT 12/08/2015 4:05 PM EDT Narrative Resulting Agency Comment Spec In Lab Jennifer Amaro MD CHEMISTRY ROCHELLE JENNINGS [facility] [place] [address] * POCT Glucose (12/08/2015 11:40 AM EDT) Glucose, POC 167 65 - 199 mg/dL [facility] Comment: Supplemental ranges: <140 mg/dL before meals <180 mg/dL all other times of the day Blood specimen (specimen) 12/08/2015 11:40 AM EDT 12/08/2015 11:40 AM EDT Jennifer Amaro MD POINT OF CARE TEST ORDERABLES Performing Organization Address [facility] Co de Phone Number [facility] [place] [address] * POCT Glucose (12/08/2015 7:30 AM EDT) Glucose, POC 177 65 - 199 mg/dL [facility] Comment: Supplemental ranges: <140 mg/dL before meals <180 mg/dL all other times of the day Blood specimen (specimen) 12/08/2015 7:30 AM EDT 12/08/2015 7:30 AM EDT Jennifer Amaro MD POINT OF CARE TEST ORDERABLES Performing Organization Address [facility] Co de Phone Number [facility] [place] [address] * (ABNORMAL) Blood culture (12/08/2015 1:17 AM EDT) Pathologist [facility] Blood Culture Klebsiella oxytoca isolated This organism expresses extended spectrum beta-lactamase which inactivates penicillins, cephalosporins, and aztreonam. Susceptibilitie s previously reported (A) [facility] Gram Stain Bottle Growth detected in aerobic and anaerobic bottles. Gram Negative Rods seen (A) [facility] Organism Gram Negative Rods(A) [facility] Blood specimen (specimen) STRUCTURE OF RIGHT HAND / Unknown 12/08/2015 1:17 AM EDT 12/08/2015 2:20 AM EDT Narrative Resulting Agency Comment Spec In Lab Jennifer Amaro MD MICROBIOLOGY - BLOOD ORDERABLES Performing Organization Address [facility] Co de Phone Number [facility] [place] [address] * Scan, Peripheral Blood (12/08/2015 1:01 AM EDT) Plat estimate Normal [facility] RBC Morphology Normal [facility] Blood specimen (specimen) 12/08/2015 1:01 AM EDT 12/08/2015 1:12 AM EDT Narrative Resulting Agency Comment Spec In Lab Jennifer Amaro MD HEMATOLOGY ORD ERABLES [facility] [place] [address] * (ABNORMAL) Differential, Automated (12/08/2015 1:01 AM EDT) Pathologist [facility] Neutrophil % 79.8 % [facility] Neutrophil Absolute 3.78 1.50 - 6.30 x10(3)/mc L [facility] Lymph % 6.3 % [facility] Lymphocytes Abs 0.3(L) 1.0 - 3.6 x10(3)/mc L [facility] Monocyte % 4.9 % [facility] Monocyte Abs 0.2 0.2 - 1.0 x10(3)/ L [facility] Eos % 0.4 % [facility] Eosinophils Abs 0.0 0.0 - 0.5 x10(3)/mc L [facility] Basophil % 0.2 % [facility] Baso Absolute 0.0 0.0 - 0.2 x10(3)/mc L [facility] Immature Gran % 8.40 % [facility] Comment: Immature granulocytes(IG's)percentage and absolute count will include metamyelocytes, myelocytes, and promyelocytes. Blood smears from CBCs yielding IG's will be scanned manually for concordance. If this scan disagrees with the automated IG or if promyelocytes are noted, a manual differential will be performed. Immature Gran Absolute 0.40(H) 0.00 - 0.05 x10(3)/mc L [facility] Blood specimen (specimen) 12/08/2015 1:01 AM EDT 12/08/2015 1:12 AM EDT Narrative Resulting Agency Comment Spec In Lab Jennifer Amaro MD HEMATOLOGY ORD ERABLES Performing Organization Address City/[facility]/ZIP Co de Phone Number [facility] [place] [address] * (ABNORMAL) Hemogram (12/08/2015 1:01 AM EDT) White Blood Cell 4.7 4.0 - 10.0 x10(3)/mc L [facility] Red Blood Cell 3.92(L) 4.63 - 6.08 x10(6)/mc L [facility] Hemoglobin 12.6(L) 13.7 - 17.5 gm/dL [facility] Hematocrit 36.2(L) 40.0 - 51.0 % [facility] Mean Cell Volume 92.3(H) 79.0 - 92.0 fL [facility] Mean Cell Hemoglobin 32.1 25.6 - 32.2 pg [facility] Mean Cell Hemoglobin Concentration 34.8 32.0 - 36.5 gm/dL [facility] Platelet 151 145 - 370 x10(3)/mc L [facility] RDW Standard Deviation 46.4(H) 35.0 - 46.0 fL [facility] RDW coefficient of variation 13.9 10.9 - 14.4 % [facility] Mean Platelet Volume 9.8 9.0 - 12.0 fL [facility] Blood specimen (specimen) 12/08/2015 1:01 AM EDT 12/08/2015 1:12 AM EDT Narrative Resulting Agency Comment Spec In Lab Jennifer Amaro MD HEMATOLOGY ORD ERABLES Performing Organization Address City/[facility]/ZIP Co de Phone Number [facility] [place] [address] * (ABNORMAL) Blood culture (12/08/2015 1:01 AM EDT) [facility] Blood Culture Klebsiella oxytoca isolated This organism expresses extended spectrum beta-lactamase which inactivates penicillins, cephalosporins, and aztreonam. Susceptibilitie s previously reported (A) [facility] Gram Stain Aerobic Growth detected in aerobic bottle. Gram Negative Rods seen (A) [facility] Gram Stain Anaerobic Growth detected in anaerobic bottle. Gram Negative Rods seen (A) [facility] Organism Gram Negative Rods(A) [facility] Blood specimen (specimen) RIGHT ELBOW REGION STRUCTURE / Unknown 12/08/2015 1:01 AM EDT 12/08/2015 2:20 AM EDT Narrative Resulting Agency Comment Spec In Lab Jennifer Amaro MD MICROBIOLOGY - BLOOD ORDERABLES Performing Organization Address [facility]/ZIP Co de Phone Number [facility] [place] [address] * Cryoglobulin (12/08/2015 1:01 AM EDT) [facility] Cryoglobulin See Note [facility] Comment: Cryoglobulins negative at 24 and 72 hours. This test was developed and its performance characteristics determined by [facility]. It has not been cleared or [...] MD CHEMISTRY ORDE RABLES Performing Organization Address City/[facility]/ZIP Co de Phone Number [facility] [place] [address] * Hepatitis C RNA, quantitative, PCR (12/08/2015 1:01 AM EDT) [facility] HCV Viral Load 150,327 IU/mL [facility] HCV Viral Load Result: [id number] IU/mL Indication for Study: Hepatitis C Infection Analysis: A quantitiative real time reverse transcriptase PCR assay was performed on extracted viral RNA for the purpose of quantification. Sample: plasma (1 mL minimum volume) Method: Kirsten June TaqMAN 48 HCV Linear Range: 15 IU/mL - 100,000,000IU/mL (95% CI) Note: This assay is being performed in the [facility] Molecular Pathology Laboratory. Gibson Good, Ph.D. Director, Molecular Pathology [facility] Comment: [VERIFIED DATE]12.12.15 Verified By:Xiomy Gupta (Electronic Signature) Blood specimen (specimen) 12/08/2015 1:01 AM EDT 12/10/2015 11:17 AM EDT Narrative Resulting Agency Comment Spec In Lab Jennifer Amaro MD MOLECULAR ROCHELLE JENNINGS Performing Organization Address [facility] Co de Phone Number [facility] [place] [address] * (ABNORMAL) Phosphorus (12/08/2015 1:01 AM EDT) Phosphorus 1.7(L) 2.5 - 4.5 mg/dL [facility] Blood specimen (specimen) 12/08/2015 1:01 AM EDT 12/08/2015 1:12 AM EDT Narrative Resulting Agency Comment Spec In Lab Jennifer Amaro MD CHEMISTRY ROCHELLE JENNINGS Performing Organization Address City/[facility]/ZIP Co de Phone Number [facility] [place] [address] * (ABNORMAL) Magnesium (12/08/2015 1:01 AM EDT) Magnesium 0.43(L) 0.69 - 1.07 mmol/L [facility] Blood specimen (specimen) 12/08/2015 1:01 AM EDT 12/08/2015 1:12 AM EDT Narrative Resulting Agency Comment Spec In Lab Jennifer Amaro MD CHEMISTRY ROCHELLE JENNINGS [facility] [place] [address] * (ABNORMAL) Basic Metabolic Panel (non-fasting) (12/08/2015 1:01 AM EDT) Glucose 161 65 - 199 mg/dL [facility] Comment:Diabetes: >=200 mg/d L plus symptoms Blood Urea Nitrogen 26(H) 10 - 20 mg/dL [facility] Creatinine 2.27(H) 0.80 - 1.50 mg/dL [facility] Comment: Please note that the pediatric reference intervals supplied above were not validated at [facility]. Results from pediatric patients should be interpreted in conjunction to the patient's age, height and muscle mass. Sodium 140 135 - 145 mmol/L [facility] Potassium 3.5 3.5 - 5.0 mmol/L [facility] Comment: result rechecked-llu Please note: ??Patients with WBC >100,000 may have falsely elevated Potassium levels. ??For accurate Potassium quantification in these patients send serum separator tube (gold top) for subsequent determinations. ??Contact the Clinical Chemistry Laboratory if there are any questions. Chloride 102 98 - 107 mmol/L [facility] Carbon Dioxide 21(L) 22 - 31 mmol/L [facility] Anion Gap 17(H) 5 - 15 mmol/L [facility] Calcium 8.6 8.5 - 10.5 mg/dL [facility] Comment:result rechecked-llu Est Glomerular Filtration Rate 29(L) >=60 [facility] Comment: This estimated [...] the following links into your internet browser. [email or web address] Blood specimen (specimen) 12/08/2015 1:01 AM EDT 12/08/2015 1:12 AM EDT Narrative Resulting Agency Comment Spec In Lab Jennifer Amaro MD CHEMISTRY ORDE RABLES Performing Organization Address [facility] Co de Phone Number [facility] [place] [address] * POCT Glucose (12/07/2015 9:07 PM EDT) Pathologist [facility] Glucose, POC 166 65 - 199 mg/dL [facility] Comment: Supplemental ranges: <140 mg/dL before meals <180 mg/dL all other times of the day Blood specimen (specimen) 12/07/2015 9:07 PM EDT 12/07/2015 9:07 PM EDT Jennifer Amaro MD POINT OF CARE TEST ORDERABLES Performing Organization Address [facility] Co de Phone Number [facility] [place] [address] * EKG 12 Lead (12/07/2015 8:48 PM EDT) Ventricular rate 79 BPM MUSE SYSTEM Atrial Rate 79 BPM MUSE SYSTEM P-R Interval 166 ms MUSE SYSTEM QRS Duration 108 ms MUSE SYSTEM Q-T Interval 360 ms MUSE SYSTEM QTC Calculated (Bezet) 412 ms MUSE SYSTEM Calculated P Hydro 30 degrees MUSE SYSTEM Calculated R Hydro -44 degrees MUSE SYSTEM Calculated T Hydro -14 degrees MUSE SYSTEM INTERPRETATION Sinus rhythm with marked sinus arrhythmia Left axis deviation Abnormal ECG When compared with ECG of 14-NOV-2015 17:24, No significant change was found Confirmed by MD DAMON SALVATORE ([id number]) on 12/08/2015 1:04:24 PM MUSE SYSTEM 12/07/2015 8:48 PM EDT 12/08/2015 1:04 PM EDT Jennifer Amaro MD ECG ORDERABLES MUSE SYSTEM * (ABNORMAL) Differential, Manual (12/07/2015 8:07 PM EDT) Neutrophil % Manual 76 % [facility] Band % 15 % [facility] Lymphocyte Manual 6 % [facility] Monocyte Manual 1 % [facility] Metamyelocyte Manual 2 % [facility] Neutrophil Absolute (ANC) - Manual 2.5 1.5 - 6.3 x10(3)/mc L [facility] Band Abs 0.5 0.2 - 0.6 x10(3)/[facility] LABORATORY Neutrophil Absolute (ANC) - Automated 2.99 1.50 - 6.30 x10(3)/ L [facility] Lymph Absolute Manual 0.2(L) 1.0 - 3.6 x10(3)/ L [facility] Monocyte Absolute Manual 0.0(L) 0.2 - 1.0 x10(3)/mc L [facility] [place] Absolute Manual 0.1(H) 0.0 - 0.0 x10(3)/[facility] LABORATORY Total Cells Ct 100 [facility] Plat estimate Decreased [facility] RBC Morphology Abnormal [facility] Ovalocytes 1-5 /HPF [facility] Tear Cell 1-5 /HPF [facility] [place] Cells 1-5 /HPF [facility] Blood specimen (specimen) 12/07/2015 8:07 PM EDT 12/07/2015 8:12 PM EDT Narrative Resulting Agency Comment Spec In Lab Jennifer Amaro MD HEMATOLOGY ORD ERABLES [facility] [place] [place] [address] * Red Hold (12/07/2015 8:07 PM EDT) Pathologist [facility] Red Hold Sample in lab. [facility] Blood specimen (specimen) Venous Draw / Unknown 12/07/2015 8:07 PM EDT 12/07/2015 8:43 PM EDT Jennifer Amaro MD CHEMISTRY ROCHELLE JENNINGS [facility] [place] [address] * (ABNORMAL) Hemogram (12/07/2015 8:07 PM EDT) [facility] White Blood Cell 3.3(L) 4.0 - 10.0 x10(3)/mc L [facility] Red Blood Cell 2.39(L) 4.63 - 6.08 x10(6)/mc L [facility] Hemoglobin 7.4(L) 13.7 - 17.5 gm/dL [facility] Comment: This result has been called to JOSE Blum by MELISSA VANEGAS on 12 07 2015 at 2055, and has been read back. Hematocrit 22.2(L) 40.0 - 51.0 % [facility] Mean Cell Volume 92.9(H) 79.0 - 92.0 fL [facility] Mean Cell Hemoglobin 31.0 25.6 - 32.2 pg [facility] Mean Cell Hemoglobin Concentration 33.3 32.0 - 36.5 gm/dL [facility] Platelet 102(L) 145 - 370 x10(3)/mc L [facility] RDW Standard Deviation 46.9(H) 35.0 - 46.0 fL [facility] RDW coefficient of variation 13.8 10.9 - 14.4 % [facility] Mean Platelet Volume 9.5 9.0 - 12.0 fL [facility] Blood specimen (specimen) 12/07/2015 8:07 PM EDT 12/07/2015 8:12 PM EDT Narrative Resulting Agency Comment Spec In Lab Jennifer Amaro MD HEMATOLOGY ORD ERABLES [facility] [place] [address] * Lactate, whole blood, send to lab (12/07/2015 8:07 PM EDT) Lactate WB 0.9 0.5 - 2.2 mmol/L [facility] Blood specimen (specimen) 12/07/2015 8:07 PM EDT 12/07/2015 8:12 PM EDT Narrative Resulting Agency Comment Spec In Lab Jennifer Amaro MD CHEMISTRY ORDE RABLES Performing Organization Address City/[facility]/ZIP Co de Phone Number [facility] [place] [address] * XR Chest PA & Lateral (Generic) [...] Glucose, POC 170 65 - 199 mg/dL [facility] Comment: Supplemental ranges: <140 mg/dL before meals <180 mg/dL all other times of the day Blood specimen (specimen) 12/07/2015 5:14 PM EDT 12/07/2015 5:14 PM EDT Jennifre Amaro MD POINT OF CARE TEST ORDERABLES [facility] [place] [address] * Duplex Renal Transplant, Unilat (12/07/2015 10:46 AM EDT) VB Text Report Department: Vascular Surgery Lab Patient: [id number] (ETHEL AKINS) CPT: 15343F ICD10: N18.5 Referring Physician: JENNIFER AMARO ?? 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 flow/obstruction ICD10 Diagnosis Code: N18.5 Findings: Ama Renal Aorta ? PSV (cm/s): 93 ? EDV (cm/s): 7 Renal Hilum, Right ? RI: 1.47 Renal Artery Proximal, Left ? PSV (cm/s): 83 ? EDV (cm/s): 20 ? RAR-[place]: 0.9 ? RI: 0.76 Renal Artery Mid, Left ? PSV (cm/s): 122 ? EDV (cm/s): 27 ? RAR-[place]: 1.3 ? RI: 0.78 Renal Artery Distal, Left ? PSV (cm/s): 138 ? EDV (cm/s): 44 ? RAR-[place]: 1.5 ? RI: 0.68 Upper Pole Renal [...] the most appropriate choice: ID Approval by Seelna Fatima Given 12/11/2015 11:00 AM EDT 1 [...] Christian RN) 0850 (Given - Provider: Selena Nicolas, JADEN) 0819 (Given - Provider: Kenyetta Tom RN) ciprofloxacin (CIPRO) tablet 500 mg 500 mg, Oral, 2 TIMES DAILY, 23 doses, First dose (after last modification) on Thu12/11/15 at 1900, Last dose on Thu12/22/15 at 1900, Routine, Indication for (Active or Suspected): Urinary Tract/Pyelonephritis 1817 (Given - Provider: Selena Nicolas RN) 0622 [...] DAILY, First dose (after last modification) on 12/08/15 at 1500, Until Discontinued, Routine 0839 (Given [...] Selena Fatima 1100 (Given - Provider: Selena Nicolas, JADEN) mycophenolate (CELLCEPT) capsule 500 mg 500 mg, Oral, 2 TIMES DAILY, First dose on Thu12/07/15 at 2100, Until Discontinued, DO NOT CRUSH OR OPEN, Routine 0838 (Given - Provider: Monique Christian RN)2142 (Given - Provider: Anatoly Chapman, JADEN) 0850 (Given - Provider: Selena Nicolas, JADEN)2033 (Given - Provider: Perla Mccann, JADEN) 0819 (Given - Provider: Kenyetta Tom, JADEN) pantoprazole (PROTONIX) injection 40 mg 40 mg, Intravenous, DAILY, First dose on Thu12/09/15 at 0900, Until Discontinued 0844 (Given - Provider: Monique Christian RN) 0852 (Given - Provider: Selena Nicolas, JADEN) 0819 (Given - Provider: Kenyetta Tom, JADEN) polyethylene glycol (MIRALAX) packet 17 g [...] Nicolas RN)1642 (Given - Provider: Selena Nicolas RN)2141 (Given - Provider: Anatoly Chapman RN) 0849 (Given - Provider: Selena Nicolas RN)1249 (Given - Provider: Selena Nicolas RN)1744 (Given - Provider: Selena Nicolas RN)2031 (Given - Provider: Perla Mccann RN) 0819 (Given - Provider: Kenyetta Tom RN)1147 (Given - Provider: Selena Nicolas RN) potassium phosphate 15 mMol in sodium chloride 0.9% 250 mL (COMPLETED) 15 mmol, Intravenous, EVERY 4 HOURS, 2 doses, First dose (after last reorder) on Thu12/11/15 at 1100, Last dose on Thu12/11/15 at 1500, Administer over 4 Hours, Administer over 4-6 hours 1211 (Given - Provider: Selena Nicolas RN)164 (Given - Provider: Selena Nicolas RN) sodium chloride 0.9 % flush 5 mL 5 mL, Intravenous, 2 TIMES DAILY, First dose on Thu12/07/15 at 2100, Until Discontinued, Recovery (Recovery-Hospital Unit), Routine 0900 (Not Given - Provider: Monique Christian RN - Reason: See comment - Comment: infusing )2142 (Given - Provider: Anatoly Chapman RN) 0852 (Given - Provider: Selena Nicolas RN)2034 (Given - Provider: Perla Mccann RN) 0824 (Given - Provider: Kenyetta Tom RN) sulfamethoxazole-trimet hoprim (BACTRIM;SEPTRA) 400-80 mg per [...] Routine 0839 (Given - Provider: Monique Christian RN)2140 (Given - Provider: Anatoly Chapman, JADEN) 0849 (Given - Provider: Selena Nicolas, JADEN)2042 (Given - Provider: Perla Mccann, RN) 0819 (Given - Provider: Kenyetta Tom, RN) tamsulosin (FLOMAX) ER capsule 0.4 mg 0.4 mg, Oral, NIGHTLY, First dose on Thu12/07/15 at 2100, Until Discontinued, DO NOT CRUSH OR OPEN, Routine 2140 (Given - Provider: Anatoly Chapman, JADEN) 2031 (Given - Provider: Perla Mccann, RN) valGANciclovir (VALCYTE) tablet 450 mg 450 [...] Nicolas RN)2127 (Rate/Dose Change - Provider: Anatoly Chapman, JADEN) 0653 (Stopped - Provider: Anatoly Chapman RN) [...] Starting on Thu12/07/15 at 1640, Until Laura 16 at 1552, flush, Flush pertains to all [...] Intravenous, EVERY 8 HOURS PRN, Starting on 12/07/15 at 1640, Until Laura 12/13/15 at 1552, Nausea, May repeat times one in 30 minutes if ineffective. If multiple antiemetics are ordered, use ondanstron first, Recovery (Recovery- Hospital Unit) documented in this encounter Care Teams Control Room Operator Relationship Specialty Start Date End Date [place] Denis DO [address] [place] [address] [address] [facility] [address] [place] [address] PCP - General 09/03/12 03/17/22 Ruchi Valles RN Nurse Clinic Transplant Surgery 07/30/15 documented as of this encounter
--- OUTSIDE RECORDS SUMMARY | 2024-04-04 14:13 | XMS_ITS | Encounter Summary ---
Author Organization [facility] [place] [address] Care Team Providers Care Food Stylist Name Role Phone AdeelUrbano boland Primary Care Provider Encounter Details Date Type Department Care Team (Late st Contact Info) Description 11/27/2015 [facility] [place] [phone] Joanie Sim MD [facility] [place] [address] DH ERRONEOUS ENCOUNTER Social History Tobacco Use [...] PM EDT Office Visit Cardiology at [address] [phone] Jay Urban MD [facility] [place] [address] 04/15/2024 10:00 AM EDT Hospital Encounter Non-Invasive Cardiology [place] [phone] Arrived documented as of this encounter Visit Diagnoses Diagnosis DH ERRONEOUS ENCOUNTER documented in this encounter Care Teams Food Stylist Relationship Specialty Start Date End Date Urbano Denis DO [address] [place] [address] PCP - General 09/03/12 03/17/22 Ruchi Valles RN Nurse Clinic Transplant Surgery 07/30/15 documented as of this encounter
--- OUTSIDE RECORDS SUMMARY | 2024-04-04 14:14 | XMS_ITS | Encounter Summary ---
Author Organization [facility] [place] [address] Care Team Providers Care Window Shade Estimator Name Role Phone Urbano Denis DO Primary Care Provider [phone] Encounter Details Date Type Department Care Team (Late st Contact Info) Description 11/20/2015 10:00 AM EDT Office Visit [place] [phone] Jennifer Amaro MD [facility] [place] [address] H/O kidney transplant Social History Tobacco Use [...] Bell, RD - 11/20/2015 4:20 PM EDT [facility] Post Transplant Nutrition Follow Up Date: 11/20/2015 Patient: Cody Bolden Transplant Date: 09/16/15 [place] organ UNOS diagnosis: Transplant: Mr. Cody Bolden [...] Value Date CHLPL 149 11/20/2015 Assessment: This radio news writer provided patient with a copy of [...] EXTREMITY performed by Jennifer Amaro MD at [facility] OR ??? Pro transplantation of kidney N/A 09/16/2015 @KIDNEY TRANSPLANT, WITHOUT RECIPIENT NEPHRECTOMY performed by Franko Larkin MD at [facility] ??? Pro transplant, prep cadaver renal graft N/A 09/16/2015 @PREPARATION CADAVERIC RENAL ALLOGRAFT performed by Franko Larkin MD at [facility] OR ??? N/A 09/16/2015 ORGAN ACQUISITION RENAL, CADAVERIC performed by Franko Larkin MD at [facility] Family History: No family history [...] PM EDT Office Visit Cardiology at [address] [phone] Jay Urban MD [facility] [place] [address] 04/15/2024 10:00 AM EDT Hospital Encounter Non-[place] [address] Arrived documented as of [...] 9:20 AM EDT) BKV Urine Result Positive [facility] BKV Urine Interp [...] DNA isolated from urine was performed using [employer] BKV (ASR) reagents and the [employer] 7500 FAST Real-Time PCR System. In addition, the PCR product sequence is confirmed using physical properties (melting curve analysis). This test was developed and its performance determined by the [facility] [place] [place] Molecular Pathology Laboratory. It has not been cleared or approved by the U.S. Food and Drug Administration. This test is used for clinical purposes and should not be considered investigational or for research purposes. The Molecular Pathology Laboratory is certified by the Clinical Laboratory Improvement Act of 1988 and as such is allowed to perform high complexity clinical testing. [facility] Comment: [VERIFIED DATE]11.21.15 Verified By:Susy Grider (Electronic Signature) Urine specimen (specimen) 11/20/2015 9:20 AM EDT 11/20/2015 11:44 AM EDT Narrative Resulting Agency Comment Spec In Lab Jennifer Amaro MD HEMATOLOGY ORD ERABLES Performing Organization Address City/[facility]/ZIP Co de Phone Number [facility] [place] [address] * Scan, Peripheral Blood (11/20/2015 9:20 AM EDT) Plat estimate Increased [facility] RBC Morphology Normal [facility] Plat, Giant Less than 1 /HPF [facility] Platelet Clumps Present [facility] Blood specimen (specimen) 11/20/2015 9:20 AM EDT 11/20/2015 9:48 AM EDT Narrative Resulting Agency Comment Spec In Lab Jennifer Amaro MD HEMATOLOGY ORD ERABLES Performing Organization Address City/[facility]/ZIP Co de Phone Number [facility] [place] [address] * Urine culture (11/20/2015 9:20 AM EDT) [facility] Urine Culture No growth (Less than 1,000 cfu/ml). [facility] Urine specimen obtained by clean catch procedure (specimen) 11/20/2015 9:20 AM EDT 11/20/2015 10:39 AM EDT Narrative Resulting Agency Comment Spec In Lab Jennifer Amaro MD MICROBIOLOGY - GENERAL ORDERABLES Performing Organization Address City/[facility]/ZIP Co de Phone Number [facility] [place] [address] * Green Tube HOLD (11/20/2015 9:20 AM EDT) Pathologist [facility] Green Hold Sample in lab. [facility] Blood specimen (specimen) Venous Draw / Unknown 11/20/2015 9:20 AM EDT 11/20/2015 9:50 AM EDT Jennifer Amaro MD CHEMISTRY ORDE DICK Performing Organization Address City/[facility]/[place] [address] * (ABNORMAL) Differential, Automated (11/20/2015 9:20 AM EDT) Neutrophil % 64.6 % [facility] Neutrophil Absolute 5.33 1.50 - 6.30 x10(3)/mc L [facility] Lymph % 15.9 % [facility] Lymphocytes Abs 1.3 1.0 - 3.6 x10(3)/ L [facility] Monocyte % 7.1 % [facility] Monocyte Abs 0.6 0.2 - 1.0 x10(3)/ L [facility] Eos % 1.9 % [facility] Eosinophils Abs 0.2 0.0 - 0.5 x10(3)/ L [facility] Basophil % 0.8 % [facility] Baso Absolute 0.1 0.0 - 0.2 x10(3)/ L [facility] Immature Gran % 9.70 % [facility] Comment: Immature granulocytes(IG's)percentage and absolute count will include metamyelocytes, myelocytes, and promyelocytes. Blood smears from CBCs yielding IG's will be scanned manually for concordance. If this scan disagrees with the automated IG or if promyelocytes are noted, a manual differential will be performed. Immature Gran Absolute 0.80(H) 0.00 - 0.05 x10(3)/ L [facility] Blood specimen (specimen) 11/20/2015 9:20 AM EDT 11/20/2015 9:48 AM EDT Narrative Resulting Agency Comment Spec In Lab Jennifer Amaro MD HEMATOLOGY ORD ERABLES Performing Organization Address City/[facility]/ZIP Co de Phone Number [facility] [place] [address] * (ABNORMAL) Hemogram (11/20/2015 9:20 AM EDT) Pathologist [facility] White Blood Cell 8.3 4.0 - 10.0 x10(3)/mc L [facility] Red Blood Cell 4.45(L) 4.63 - 6.08 x10(6)/mc L [facility] Hemoglobin 14.4 13.7 - 17.5 gm/dL [facility] Hematocrit 40.7 40.0 - 51.0 % [facility] Mean Cell Volume 91.5 79.0 - 92.0 fL [facility] Mean Cell Hemoglobin 32.4(H) 25.6 - 32.2 pg [facility] Mean Cell Hemoglobin Concentration 35.4 32.0 - 36.5 gm/dL [facility] Platelet 427(H) 145 - 370 x10(3)/ L [facility] RDW Standard Deviation 45.3 35.0 - 46.0 fL [facility] RDW coefficient of variation 13.6 10.9 - 14.4 % [facility] Mean Platelet Volume 9.7 9.0 - 12.0 fL [facility] Blood specimen (specimen) 11/20/2015 9:20 AM EDT 11/20/2015 9:48 AM EDT Narrative Resulting Agency Comment Spec In Lab Jennifer Amaro MD HEMATOLOGY ORD ERABLES [facility] [place] [address] * (ABNORMAL) Reticulocyte Count (11/20/2015 9:20 AM EDT) Pathologist [facility] Reticulocyte % 2.3 0.5 - 2.4 % [facility] Retic Abs # 0.100(H) 0.027 - 0.095 x10(6)/ L [facility] Immature Retic% 5.0 2.3 - 15.9 % [facility] Reticulated Hgb 36.8 28.5 - 38.9 pg [facility] Immature Plt % 1.4 0.0 - 7.4 % [facility] Blood specimen (specimen) 11/20/2015 9:20 AM EDT 11/20/2015 9:48 AM EDT Narrative Resulting Agency Comment Spec In Lab Jennifer Amaro MD HEMATOLOGY ORD ERABLES Performing Organization Address [facility] Co de Phone Number [facility] [place] [address] * Tacrolimus level (11/20/2015 9:20 AM EDT) Tacrolimus 16.1 ng/mL [facility] Comment: Called by: REYNALDO, Read back by: JANINE, Date/Time:11/20/15 14:10_. Trough therapeutic: ??5-15 ng/mL Blood specimen (specimen) 11/20/2015 9:20 AM EDT 11/20/2015 1:28 PM EDT Narrative Resulting Agency Comment Spec In Lab Jennifer Amaro MD CHEMISTRY ORDE DICK Performing Organization Address [facility] Co de Phone Number [facility] [place] [address] * (ABNORMAL) Urinalysis with reflex Culture (11/20/2015 [...] CENTER [facility] Leukocytes, Urine Dipstick Trace(A) Negative [facility] Appearance, Urine Dipstick Hazy(A) Clear [facility] Specific [place] Urine Automated 1.014 1.002 - 1.030 [facility] Color, Urine Dipstick Yellow Yellow [facility] RBC, Urine 3 0 - 3 /HPF [facility] WBC, Urine 25(H) 0 - 3 /HPF [facility] Bacteria, Urine Rare(A) None /HPF [facility] Squamous Epithelial Cells, Urine <1 <=4 /HPF [facility] Transitional Epithelial Cells, Urine 2(H) <=1 /HPF [facility] Renal Epithelial Cells, Urine <1(H) <=0 /HPF [facility] Reflex to Culture Yes [facility] Urine specimen obtained by clean catch procedure (specimen) 11/20/2015 9:20 AM EDT 11/20/2015 9:48 AM EDT Narrative Resulting Agency Comment Spec In Lab Jennifer Amaro MD URINE ORDERABL ES [facility] [place] [address] * (ABNORMAL) Uric acid (11/20/2015 9:20 AM EDT) Uric Acid 9.3(H) 3.5 - 8.5 mg/dL [facility] Blood specimen (specimen) 11/20/2015 9:20 AM EDT 11/20/2015 9:48 AM EDT Narrative Resulting Agency Comment Spec In Lab Jennifer Amaro MD CHEMISTRY ORDE DICK Performing Organization Address City/[facility]/ZIP Co de Phone Number [facility] [place] [address] * Phosphorus (11/20/2015 9:20 AM EDT) [facility] Phosphorus 3.1 2.5 - 4.5 mg/dL [facility] Blood specimen (specimen) 11/20/2015 9:20 AM EDT 11/20/2015 9:48 AM EDT Narrative Resulting Agency Comment Spec In Lab Jennifer Amaro MD CHEMISTRY ORDTiny JENNINGS Performing Organization Address [facility] Co de Phone Number [facility] [place] [address] * (ABNORMAL) Magnesium (11/20/2015 9:20 AM EDT) [facility] Magnesium 0.60(L) 0.69 - 1.07 mmol/L [facility] Blood specimen (specimen) 11/20/2015 9:20 AM EDT 11/20/2015 9:48 AM EDT Narrative Resulting Agency Comment Spec In Lab Jennifer Amaro MD CHEMISTRY ORDTiny JENNINGS Performing Organization Address [facility] Co de Phone Number [facility] [place] [address] * (ABNORMAL) Comprehensive metabolic panel (non-fasting) (11/20/2015 9:20 AM EDT) [facility] Glucose 184 65 - 199 mg/dL [facility] Comment:Diabetes: >=200 mg/d L plus symptoms Blood Urea Nitrogen 25(H) 10 - 20 mg/dL [facility] Creatinine 2.37(H) 0.80 - 1.50 mg/dL [facility] Comment: Please note that the pediatric reference intervals supplied above were not validated at [facility] [place]. Results from pediatric patients should be interpreted in conjunction to the patient's age, height and muscle mass. Sodium 137 135 - 145 mmol/L [facility] Potassium 4.8 3.5 - 5.0 mmol/L [facility] Aspartate Aminotransferase 49(H) 0 - 39 unit/L [facility] Alanine Aminotransferase 70(H) 0 - 55 unit/L [facility] Alkaline Phosphatase 73 40 - 120 unit/L [facility] Bilirubin, Total 0.8 0.2 - 1.3 mg/dL [facility] [...] the following links into your internet browser. [email or web address] Blood specimen (specimen) 11/20/2015 9:20 AM EDT 11/20/2015 9:48 AM EDT Narrative Resulting Agency Comment Spec In Lab Jennifer Amaro MD CHEMISTRY ROCHELLE JENNINGS Performing Organization Address City/[facility]/ZIP Co de Phone Number [facility] [place] [address] * Cholesterol, total (11/20/2015 9:20 AM EDT) Cholesterol, Total 149 <=199 mg/dL [facility] Comment: Recommendations of the NCEP Adult Treatment Panel for the following risk cutoff thresholds for the [place] population: Desirable: <200 mg/dL Borderline High: 200-239 mg/dL High: > or = 240 mg/dL Blood specimen (specimen) 11/20/2015 9:20 AM EDT 11/20/2015 9:48 AM EDT Narrative Resulting Agency Comment Spec In Lab Jennifer JENNINGS Performing Organization Address [facility] Co de Phone Number [facility] [place] [address] documented in this encounter Visit Diagnoses Diagnosis H/O kidney transplant Kidney replaced by transplant documented in this encounter Care Teams Window Shade Estimator Relationship Specialty Start Date End Date Urbano Denis DO [address] [place] [address] PCP - General 09/03/12 03/17/22 Ruchi Valles RN Nurse Clinic Transplant Surgery 07/30/15 documented as of this encounter
--- OUTSIDE RECORDS SUMMARY | 2024-04-04 14:14 | XMS_ITS | Encounter Summary ---
[facility] [place] [address] Care Team Providers Care Seamless Tube Roller Name Role Phone Urbano Denis DO Primary Care Provider Encounter Details Date Type Department Care Team (Late st Contact Info) Description 11/23/2015 9:30 AM EDT Office Visit [place] [phone] Jennifer Amaro MD [facility] [place] [address] H/O kidney transplant Social History Tobacco Use [...] Bell, RD - 11/23/2015 2:36 PM EDT [facility] Post Transplant Nutrition Follow Up Date: 11/23/2015 Patient: Cody Bolden Transplant Date: 09/16/15 [place] organ UNOS diagnosis: Transplant: Mr. Cody Bolden [...] Value Date CHLPL 142 11/23/2015 Assessment: This medical technical writer provided patient with a copy [...] TOUCH ULTRAMINI Kit 0 ??? ONE TOUCH DELEcoLogicLiving LANCETS 30 gauge Misc 0 No current [...] EXTREMITY performed by Jennifer Amaro MD at [facility] MAIN OR ??? Pro transplantation of kidney N/A 09/16/2015 @KIDNEY TRANSPLANT, WITHOUT RECIPIENT NEPHRECTOMY performed by Franko Larkin MD at [facility] MAIN OR ??? Pro transplant, prep cadaver renal graft N/A 09/16/2015 @PREPARATION CADAVERIC RENAL ALLOGRAFT performed by Franko Larkin MD at [facility] MAIN OR ??? N/A 09/16/2015 ORGAN ACQUISITION RENAL, CADAVERIC performed by Franko Larkin MD at [facility] OR Family History: No [...] PM EDT Office Visit Cardiology at [address] [phone] Jay Urban MD [facility] [place] [address] 04/15/2024 10:00 AM EDT Hospital Encounter [place] [id number] Arrived documented as of this encounter Procedures [...] Culture No growth (Less than 1,000 cfu/ml). [facility] Urine specimen obtained by clean catch procedure (specimen) 11/23/2015 8:40 AM EDT 11/23/2015 9:15 AM EDT Narrative Resulting Agency Comment Spec In Lab Jennifer Amaro MD MICROBIOLOGY - GENERAL ORDERABLES [facility] [place] [address] * Green Tube HOLD (11/23/2015 8:40 AM EDT) Pathologist [facility] Green Hold Sample in lab. [facility] Blood specimen (specimen) Venous Draw / Unknown 11/23/2015 8:40 AM EDT 11/23/2015 8:54 AM EDT Jennifer Amaro MD CHEMISTRY ROCHELLE JENNINGS [facility] [place] [address] * (ABNORMAL) Differential, Automated (11/23/2015 8:40 AM EDT) [facility] Neutrophil % 73.2 % [facility] Neutrophil Absolute 5.58 1.50 - 6.30 x10(3)/mc L [facility] Lymph % 13.2 % [facility] Lymphocytes Abs 1.0 1.0 - 3.6 x10(3)/ L [facility] Monocyte % 5.2 % [facility] Monocyte Abs 0.4 0.2 - 1.0 x10(3)/ L [facility] Eos % 1.8 % [facility] Eosinophils Abs 0.1 0.0 - 0.5 x10(3)/ L [facility] Basophil % 1.0 % [facility] Baso Absolute 0.1 0.0 - 0.2 x10(3)/mc L [facility] Immature Gran % 5.60 % [facility] Comment: Immature granulocytes(IG's)percentage and absolute count will include metamyelocytes, myelocytes, and promyelocytes. Blood smears from CBCs yielding IG's will be scanned manually for concordance. If this scan disagrees with the automated IG or if promyelocytes are noted, a manual differential will be performed. Immature Gran Absolute 0.43(H) 0.00 - 0.05 x10(3)/mc L [facility] Blood specimen (specimen) 11/23/2015 8:40 AM EDT 11/23/2015 8:53 AM EDT Narrative Resulting Agency Comment Spec In Lab Jennifer Amaro MD HEMATOLOGY ORD ERABLES [facility] [place] [address] * (ABNORMAL) Hemogram (11/23/2015 8:40 AM EDT) White Blood Cell 7.6 4.0 - 10.0 x10(3)/mc L [facility] Red Blood Cell 4.21(L) 4.63 - 6.08 x10(6)/mc L [facility] Hemoglobin 13.4(L) 13.7 - 17.5 gm/dL [facility] Hematocrit 38.7(L) 40.0 - 51.0 % [facility] Mean Cell Volume 91.9 79.0 - 92.0 fL [facility] Mean Cell Hemoglobin 31.8 25.6 - 32.2 pg [facility] Mean Cell Hemoglobin Concentration 34.6 32.0 - 36.5 gm/dL [facility] Platelet 397(H) 145 - 370 x10(3)/mc L [facility] RDW Standard Deviation 47.4(H) 35.0 - 46.0 fL [facility] RDW coefficient of variation 14.2 10.9 - 14.4 % [facility] Mean Platelet Volume 9.3 9.0 - 12.0 fL [facility] Blood specimen (specimen) 11/23/2015 8:40 AM EDT 11/23/2015 8:53 AM EDT Narrative Resulting Agency Comment Spec In Lab Jennifer Amaro MD HEMATOLOGY ORD ERABLES [facility] [place] [address] * Tacrolimus level (11/23/2015 8:40 AM EDT) Tacrolimus 9.0 ng/mL [facility] Comment:Trough therapeutic: 5-15 ng/mL Blood specimen (specimen) 11/23/2015 8:40 AM EDT 11/23/2015 11:10 AM EDT Narrative Resulting Agency Comment Spec In Lab Jennifer Amaro MD CHEMISTRY ROCHELLE JENNINGS Performing Organization Address City/State/[facility] Co de Phone Number [facility] [place] [address] * (ABNORMAL) Urinalysis with reflex Culture (11/23/2015 8:40 AM EDT) Glucose, Urine Dipstick Negative Negative mg/dL [facility] Protein, Urine Dipstick Negative Negative mg/dL [facility] [...] Leukocytes, Urine Dipstick Negative Negative [facility] Appearance, Urine Dipstick Clear Clear [facility] Specific [place] Urine Automated 1.009 1.002 - 1.030 [facility] Color, Urine Dipstick Yellow Yellow [facility] RBC, Urine <1 0 - 3 /HPF [facility] WBC, Urine 6(H) 0 - 3 /HPF [facility] Squamous Epithelial Cells, Urine <1 <=4 /HPF [facility] Reflex to Culture Yes [facility] Urine specimen obtained by clean catch procedure (specimen) 11/23/2015 8:40 AM EDT 11/23/2015 8:50 AM EDT Narrative Resulting Agency Comment Spec In Lab Jennifer Amaro MD URINE ORDERABL ES Performing Organization Address [facility] Co de Phone Number [facility] [place] [address] * Reticulocyte Count (11/23/2015 8:40 AM EDT) Reticulocyte % 2.2 0.5 - 2.4 % [facility] Retic Abs # 0.090 0.027 - 0.095 x10(6)/[facility] Immature Retic% 10.9 2.3 - 15.9 % [facility] Reticulated Hgb 33.0 28.5 - 38.9 pg [facility] Immature Plt % 1.1 0.0 - 7.4 % [facility] Blood specimen (specimen) 11/23/2015 8:40 AM EDT 11/23/2015 8:53 AM EDT Narrative Resulting Agency Comment Spec In Lab Jennifer Amaro MD HEMATOLOGY ORD ERABLES Performing Organization Address [facility] de Phone Number [facility] [place] [address] * (ABNORMAL) Magnesium (11/23/2015 8:40 AM EDT) Magnesium 0.57(L) 0.69 - 1.07 mmol/L [facility] Blood specimen (specimen) 11/23/2015 8:40 AM EDT 11/23/2015 8:53 AM EDT Narrative Resulting Agency Comment Spec In Lab Jennifer Amaro MD CHEMISTRY ORDE RABLES Performing Organization Address [facility] Co de Phone Number [facility] [place] [address] * Phosphorus (11/23/2015 8:40 AM EDT) Phosphorus 3.0 2.5 - 4.5 mg/dL [facility] Blood specimen (specimen) 11/23/2015 8:40 AM EDT 11/23/2015 8:53 AM EDT Narrative Resulting Agency Comment Spec In Lab Jennifer Amaro MD CHEMISTRY ORDE DICK Performing Organization Address [facility] Co de Phone Number [facility] [place] [address] * (ABNORMAL) Uric acid (11/23/2015 8:40 AM EDT) [facility] Uric Acid 10.1(H) 3.5 - 8.5 mg/dL [facility] Blood specimen (specimen) 11/23/2015 8:40 AM EDT 11/23/2015 8:53 AM EDT Narrative Resulting Agency Comment Spec In Lab Jennifer Amaro MD CHEMISTRY ORDBhargav JENNINGS Performing Organization Address [facility] Co de Phone Number [facility] [place] [address] * (ABNORMAL) Comprehensive metabolic panel (non-fasting) (11/23/2015 8:40 AM EDT) Glucose 183 65 - 199 mg/dL [facility] Comment:Diabetes: >=200 mg/d L plus symptoms Blood Urea Nitrogen 26(H) 10 - 20 mg/dL [facility] Creatinine 2.27(H) 0.80 - 1.50 mg/dL [facility] Comment: Please note that the pediatric reference intervals supplied above were not validated at [facility]. Results from pediatric patients should be interpreted in conjunction to the patient's age, height and muscle mass. Sodium 141 135 - 145 mmol/L [facility] Potassium 4.8 3.5 - 5.0 mmol/L [facility] Comment: Please note: ??Patients with WBC >100,000 may have falsely elevated Potassium levels. ??For accurate Potassium quantification in these patients send serum separator tube (gold top) for subsequent determinations. ??Contact the Clinical Chemistry Laboratory if there are any questions. Chloride 104 98 - 107 mmol/L [facility] Carbon Dioxide 20(L) 22 - 31 mmol/L [facility] Anion Gap 17(H) 5 - 15 mmol/L [facility] Calcium 9.3 8.5 - 10.5 mg/dL [facility] Protein, Total 7.2 6.1 - 8.0 gm/dL [facility] Albumin 3.9 3.2 - 5.2 gm/dL [facility] Aspartate Aminotransferase 25 0 - 39 unit/L [facility] Alanine Aminotransferase 35 0 - 55 unit/L [facility] Alkaline Phosphatase 75 40 - 120 unit/L [facility] Bilirubin, Total 0.7 0.2 - 1.3 mg/dL [facility] Bilirubin, Direct 0.2 0.0 - 0.3 mg/dL [facility] Est Glomerular Filtration Rate 29(L) >=60 [facility] Comment: [...] the following links into your internet browser. [email or web address] Blood specimen (specimen) 11/23/2015 8:40 AM EDT 11/23/2015 8:53 AM EDT Narrative Resulting Agency Comment Spec In Lab Jennifer Amaro MD CHEMISTRY ORDBhargav JENNINGS [facility] Organization Address City/State/ZIP Co de Phone Number [facility] [place] [address] * Cholesterol, total (11/23/2015 8:40 AM EDT) Cholesterol, Total 142 <=199 mg/dL [facility] Comment: Recommendations of the NCEP Adult Treatment Panel for the following risk cutoff thresholds for the [place] population: Desirable: <200 mg/dL Borderline High: 200-239 mg/dL High: > or = 240 mg/dL Blood specimen (specimen) 11/23/2015 8:40 AM EDT 11/23/2015 8:53 AM EDT Narrative Resulting Agency Comment Spec In Lab Jennifer Amaro MD CHEMISTRY ROCHELLE JENNINGS [facility] [place] [address] documented in this encounter Visit Diagnoses Diagnosis H/O kidney transplant Kidney replaced by transplant documented in this encounter Care Teams Seamless Tube Roller Relationship Specialty Start Date End Date Urbano Denis DO [address] [place] [address] PCP - General 09/03/12 03/17/22 Ruchi Valles RN Nurse Clinic Transplant Surgery 07/30/15 documented as of this encounter
--- OUTSIDE RECORDS SUMMARY | 2024-04-04 14:14 | XMS_ITS | Encounter Summary ---
Author Organization [facility] Address [facility] [place] [address] Care Team Providers Care Metal Cut Off Saw Tender Name Role Phone Adeel Urbano KIRBY Primary Care Provider [phone] Reason for Visit * Reason Comments Immunotherapy Post Hospital Discharge Encounter Details Date Type Department Care Team (Late st Contact Info) Description 11/21/2015 10:30 AM EDT Office Visit [place] [address] Tal Eagle MD [facility] [place] [address] Kidney replaced by transplant; Aftercare following organ [...] Eagle MD - 12/03/2015 1:59 PM EDT [facility] Transplant Nephrology Follow Up Date:?? Patient:?? Ethel [...] for diabetics, every 5 for non diabetics [place] kidney ultrasound looking for renal cell CA, [...] UA Latest Ref Range: Clear Clear Spec [place] UA Latest Ref Range: 1.002 - 1.030 [...] PM EDT Office Visit Cardiology at [address] [phone] Jay Urban MD [facility] [place] [address] 04/15/2024 10:00 AM EDT Hospital Encounter Non[place] [id number] Arrived documented as of this encounter Procedures [...] Red Blood Cells (11/21/2015 10:00 AM EDT) Pathologist [facility] NRBC% auto 0.0 % [facility] NRBC Absolute 0.000 0.000 - 0.012 x10(3)/mcL [facility] Blood specimen (specimen) 11/21/2015 10:00 AM EDT 11/21/2015 11:07 AM EDT Narrative Resulting Agency Comment Spec In Lab Tal Eagle MD HEMATOLOGY ORDERA BLES [facility] [place] [address] * Scan, Peripheral Blood (11/21/2015 10:00 AM EDT) Plat estimate Increased [facility] RBC Morphology Normal [facility] Plat, Giant Less than 1 /HPF [facility] Blood specimen (specimen) 11/21/2015 10:00 AM EDT 11/21/2015 11:07 AM EDT Narrative Resulting Agency Comment Spec In Lab Tal Eagle MD HEMATOLOGY ORDERA BLES Performing Organization Address [facility]/ZIP Co de Phone Number [facility] [place] [address] * Green Tube HOLD (11/21/2015 10:00 AM EDT) Green Hold Sample in lab. [facility] Blood specimen (specimen) Venous Draw / Unknown 11/21/2015 10:00 AM EDT 11/21/2015 11:08 AM EDT Tal Eagle MD CHEMISTRY ORDERAB LES Performing Organization Address [facility] Co de Phone Number [facility] [place] [address] * (ABNORMAL) Differential, Automated (11/21/2015 10:00 AM EDT) Neutrophil % 65.5 % [facility] Neutrophil Absolute 4.80 1.50 - 6.30 x10(3)/mc L [facility] Lymph % 16.6 % [facility] Lymphocytes Abs 1.2 1.0 - 3.6 x10(3)/mc L [facility] Monocyte % 6.9 % [facility] Monocyte Abs 0.5 0.2 - 1.0 x10(3)/mc L [facility] Eos % 2.0 % [facility] Eosinophils Abs 0.2 0.0 - 0.5 x10(3)/mc L [facility] Basophil % 0.8 % [facility] Baso Absolute 0.1 0.0 - 0.2 x10(3)/mc L [facility] Immature Gran % 8.20 % [facility] Comment: Immature granulocytes(IG's)percentage and absolute count will include metamyelocytes, myelocytes, and promyelocytes. Blood smears from CBCs yielding IG's will be scanned manually for concordance. If this scan disagrees with the automated IG or if promyelocytes are noted, a manual differential will be performed. Immature Gran Absolute 0.60(H) 0.00 - 0.05 x10(3)/mc L [facility] Blood specimen (specimen) 11/21/2015 10:00 AM EDT 11/21/2015 11:07 AM EDT Narrative Resulting Agency Comment Spec In Lab Tal Eagle MD HEMATOLOGY ORDERA BLES [facility] [place] [address] * (ABNORMAL) Hemogram (11/21/2015 10:00 AM EDT) White Blood Cell 7.3 4.0 - 10.0 x10(3)/mc L [facility] Red Blood Cell 4.25(L) 4.63 - 6.08 x10(6)/mc L [facility] Hemoglobin 13.5(L) 13.7 - 17.5 gm/dL [facility] Hematocrit 39.2(L) 40.0 - 51.0 % [facility] Mean Cell Volume 92.2(H) 79.0 - 92.0 fL [facility] Mean Cell Hemoglobin 31.8 25.6 - 32.2 pg [facility] Mean Cell Hemoglobin Concentration 34.4 32.0 - 36.5 gm/dL [facility] Platelet 414(H) 145 - 370 x10(3)/mc L [facility] RDW Standard Deviation 46.2(H) 35.0 - 46.0 fL [facility] RDW coefficient of variation 13.9 10.9 - 14.4 % [facility] Mean Platelet Volume 9.6 9.0 - 12.0 fL [facility] Blood specimen (specimen) 11/21/2015 10:00 AM EDT 11/21/2015 11:07 AM EDT Narrative Resulting Agency Comment Spec In Lab Tal Eagle MD HEMATOLOGY ORDERA BLES [facility] [place] [address] * Urinalysis with reflex Culture (11/21/2015 10:00 [...] [facility] pH, Urn (dipstick) 5.0 5.0 - 8.0 [facility] Blood, Urine Dipstick Negative Negative mg/dL [facility] Ketone, Urine Dipstick Negative Negative mg/dL [facility] Nitrite, Urine Dipstick Negative Negative [facility] Leukocytes, Urine Dipstick Negative Negative [facility] Appearance, Urine Dipstick Clear Clear [facility] Specific [place] Urine Automated 1.008 1.002 - 1.030 [facility] [...] Eagle MD URINE ORDERABLES Performing Organization Address City/[facility]/ZIP Co de Phone Number [facility] [place] [address] * (ABNORMAL) Uric acid (11/21/2015 10:00 AM EDT) Uric Acid 10.2(H) 3.5 - 8.5 mg/dL [facility] Blood specimen (specimen) 11/21/2015 10:00 AM EDT 11/21/2015 11:07 AM EDT Narrative Resulting Agency Comment Spec In Lab Tal Eagle MD CHEMISTRY ORDERAB LES Performing Organization Address [facility] Co de Phone Number [facility] [place] [address] * Tacrolimus level (11/21/2015 10:00 AM EDT) Tacrolimus 12.0 ng/mL [facility] Comment:Trough therapeutic: 5-15 ng/mL Blood specimen (specimen) 11/21/2015 10:00 AM EDT 11/21/2015 1:49 PM EDT Narrative Resulting Agency Comment Spec In Lab Tal Eagle MD CHEMISTRY ORDERAB LES Performing Organization Address City/[facility] Co de Phone Number [facility] [place] [address] * Reticulocyte Count (11/21/2015 10:00 AM EDT) Reticulocyte % 2.2 0.5 - 2.4 % [facility] Retic Abs # 0.090 0.027 - 0.095 x10(6)/mcL [facility] Immature Retic% 2.3 2.3 - 15.9 % [facility] Reticulated Hgb 36.8 28.5 - 38.9 pg [facility] Immature Plt % 1.0 0.0 - 7.4 % [facility] Blood specimen (specimen) 11/21/2015 10:00 AM EDT 11/21/2015 11:07 AM EDT Narrative Resulting Agency Comment Spec In Lab Tal Eagle MD HEMATOLOGY ORDERA BLES [facility] [place] [address] * Protein/Creatinine Ratio, urine (11/21/2015 10:00 AM EDT) Creatinine, Urine 73 mg/dL [facility] Protein, Urine <6 0 - 12 mg/dL [facility] Protein / Creatinine Ratio, Urine <0.1 ratio [facility] Urine specimen (specimen) 11/21/2015 10:00 AM EDT 11/21/2015 10:59 AM EDT Narrative Resulting Agency Comment Spec In Lab Tal Eagle MD URINE ORDERABLES Performing Organization Address City/[facility]/ZIP Co de Phone Number [facility] [place] [address] * Phosphorus (11/21/2015 10:00 AM EDT) Phosphorus 2.8 2.5 - 4.5 mg/dL [facility] Blood specimen (specimen) 11/21/2015 10:00 AM EDT 11/21/2015 11:07 AM EDT Narrative Resulting Agency Comment Spec In Lab Tal Eagle MD CHEMISTRY ORDERAB LES Performing Organization Address City/[facility]/ZIP Co de Phone Number [facility] [place] [address] * (ABNORMAL) Magnesium (11/21/2015 10:00 AM EDT) Magnesium 0.60(L) 0.69 - 1.07 mmol/L [facility] Blood specimen (specimen) 11/21/2015 10:00 AM EDT 11/21/2015 11:07 AM EDT Narrative Resulting Agency Comment Spec In Lab Tal Eagle MD CHEMISTRY ORDERAB LES [facility] [place] [address] * (ABNORMAL) Comprehensive metabolic panel (non-fasting) (11/21/2015 10:00 AM EDT) Glucose 163 65 - 199 mg/dL [facility] Comment:Diabetes: >=200 mg/d L plus symptoms Blood Urea Nitrogen 26(H) 10 - 20 mg/dL [facility] Creatinine 2.33(H) 0.80 - 1.50 mg/dL [facility] Comment: Please note that the pediatric reference intervals supplied above were not validated at [facility]. Results from pediatric patients should be interpreted in conjunction to the patient's age, height and muscle mass. Sodium 139 135 - 145 mmol/L [facility] Potassium 4.7 3.5 - 5.0 mmol/L [facility] Comment: Please note: ??Patients with WBC >100,000 may have falsely elevated Potassium levels. ??For accurate Potassium quantification in these patients send serum separator tube (gold top) for subsequent determinations. ??Contact the Clinical Chemistry Laboratory if there are any questions. Chloride 102 98 - 107 mmol/L [facility] Carbon Dioxide 20(L) 22 - 31 mmol/L [facility] Anion Gap 17(H) 5 - 15 mmol/L [facility] Calcium 9.2 8.5 - 10.5 mg/dL [facility] Protein, Total 7.4 6.1 - 8.0 gm/dL [facility] Albumin 4.0 3.2 - 5.2 gm/dL [facility] Aspartate Aminotransferase 36 0 - 39 unit/L [facility] Alanine Aminotransferase 54 0 - 55 unit/L [facility] Alkaline Phosphatase 74 40 - 120 unit/L [facility] Bilirubin, Total 0.7 0.2 - 1.3 mg/dL [facility] Bilirubin, Direct 0.1 0.0 - 0.3 mg/dL [facility] Est Glomerular Filtration Rate 28(L) >=60 [facility] Comment: This [...] the following links into your internet browser. [email or web address] Blood specimen (specimen) 11/21/2015 10:00 AM EDT 11/21/2015 11:07 AM EDT Narrative Resulting Agency Comment Spec In Lab Tal Eagle MD CHEMISTRY ORDERAB LES [facility] [place] [phone] documented in this encounter Visit Diagnoses Diagnosis Kidney replaced by transplant Aftercare following organ transplant Enterococcal sepsis Streptococcal septicemia Prophylactic immunotherapy Need for prophylactic immunotherapy Chronic hepatitis C without hepatic coma documented in this encounter Care Teams Metal Cut Off Saw Tender Relationship Specialty Start Date End Date Urbano Denis DO [address] [place] [address] PCP - General 09/03/12 03/17/22 Ruchi Valles RN Nurse Clinic Transplant Surgery 07/30/15 documented as of this encounter
--- OUTSIDE RECORDS SUMMARY | 2024-04-04 14:14 | XMS_ITS | Encounter Summary ---
[place] [address] Care Team Providers Care Film Cutter Name Role Phone [place] Denis DO Primary Care Provider Reason for Referral * Consultation (Routine) - Closed Specialty Diagnoses / Procedures Referred By Humberto flor Referred To Contact Infectious Diseases Diagnoses Bacteremia due to Enterococcus Ramez Serrano [facility] [place] [address] Ramez Serrano [facility] [place] [address] Referral ID Status Reason Start Date Expiration Date V isits Requested Visits Authorized [id number] Closed Assume Subset of Care 11/16/2015 11/15/2016 1 1 Reason for Visit * Reason Comments Super SIRS Criteria kidney transplant x8 weeks ago * Auth/Cert Specialty Diagnoses / Procedures Referred By Contac t Referred To Contact Diagnoses Kidney transplant infection Referral ID Status Reason Start Date Expiration Date Visits Re quested Visits Authorized [id number] 1 1 Encounter Details Date Type Department Care Team (Latest Contact Info) Description 11/12/2015 2:00 PM EDT - 11/16/2015 5:34 PM EDT Hospital Encounter [address] [place] [address] Paola Colbert MD [facility] [place] [address] Tal Eagle MD [facility] [place] [address] Kidney transplant infection; Irregular heart rate; Bacteremia [...] Ethel Akins Patient Age: 65 y.o. Language: Bulgarian Race: White Ethnicity: Not nor Admit date: 11/12/2015 Discharge date and time: 11/16/2015 Attending Physician: Tal Eagle MD Discharge Physician: Tal Eagle MD Follow-up Recommendations for Providers: You will come back to Transplant Clinic on Thursday You will receive outpatient IV antibiotics for 2 weeks You will follow up with a Poultry Husbandman, Dr. Brown, at the end of December regarding your irregular heart rhythym Inpatient Provider Contact Information: Solid Organ Transplant Department [address], [address] [place] [address] Discharge Diagnoses (Hospital Problems) and Secondary Diagnoses [...] arranged for followup with Dr. Brown, a Poultry Husbandman who specializes in transplant patients. ANTIBIOTICS You [...] is a prescription for these procedures at [facility]. Your first dressing change and lab draw should happen on , November 22, 2015. Scheduled Appointments: You are scheduled to receive routine follow-up care in the transplant clinic: Solid Organ Transplant Department [facility] [address], [address] [place], [place] [id number] Future Appointments Future Appointments Date Time Provider [...] the waste reduction coordinator on-call). General Instructions Office of Care Management/Nitrator Operator(CM) Home IV Antibiotic Therapy Referral Note. ??Office of Care Management/ Nitrator Operator(CM) Infusion Room Referral for Outpatient IV Antibiotic [...] patient???s address.?? Patient requested referral to: 1. [facility] ? Infusion Suite (Jolly) ? Telephone call to Jolly at 12:00. ??Confirmed with Jolly availability of service. Documentation faxed to Infusion Room via edischarge as follows: OPAT and PICC power line installer and repairer protocol Patient to report to 1. [facility] in [facility] ? Infusion Suite (Jolly) ?on Thursday11/17/15 at (spouse Mara instructed to contact Jolly at above number to schedule time) time. Diabetic Status: Patient is not a diabetic. IV access: Type of line: right basilic vein PICC Date placed: 11/16/15 at 8:22 am CM signature ?? CM MAVERICK Alvarez, sail repair person of Care Manageidt pgr [phone] Future Appointments and Orders Future Appointments Provider Department Dept Phone 11/20/2015 9:00 AM TRANSPLANT, COORDINATOR Transplant [phone] 11/20/2015 10:00 AM Que Amaro MD Transplant [phone] 12/11/2015 9:30 AM LAB, THREE L [facility] Lab 12/11/2015 10:30 AM Tal Eagle MD Transplant [phone] 01/03/2016 3:30 PM Byron Brown MD Cardiology [phone] 01/04/2016 3:30 PM LAB, THREE L [facility] Lab 01/04/2016 4:30 PM Tulio Marcelo MD Gastroenterology [phone] 09/15/2016 9:00 AM LAB, THREE L [facility] Lab 09/15/2016 10:00 AM Tal Eagle MD Transplant [phone] Future Orders Complete By Expires OPAT: Order / Recommendation for Post Discharge IV Antibiotic Management [[id number] CPT(R)] As directed Process Instructions: If no progress note charted, please enter Clinical details in comments. Scheduling Instructions: Comments: Please Fax all results to: OPAT Program Infectious Disease Section [facility], [place] [address] FAX: Line care instructions per [facility] OPAT Program protocol. After hours, please contact the Infectious Disease Physician contact acid plant operator helper at . If this order was signed greater than 72 hours prior to [facility] discharge, please call to confirm the accuracy [...] the transplant clinic: Solid Organ Transplant Department [facility] [address], [address] [place] [address] Future Appointments Date Time Provider Department Center [...] Department anytime (day, night, weekend, holiday) at [phone] . After hours, please follow the instructions on the message. You can also reach the waste reduction coordinator after hours by calling (ask for the waste reduction coordinator on-call). I reviewed all of the [...] 11/16/2015 12:56 PM EDT Office of Care Management/Nitrator Operator(CM) Home IV Antibiotic Therapy Referral Note. ??Office of Care Management/ Nitrator Operator(CM) Infusion Room Referral for Outpatient IV Antibiotic [...] patient???s address.?? Patient requested referral to: 1. [facility] ? Infusion Suite (Jolly) ? Telephone call to Jolly at 12:00. ??Confirmed with Jolly availability of service. Documentation faxed to Infusion Room via edischarge as follows: OPAT and PICC power line installer and repairer protocol Patient to report to 1. [facility] in [facility] ? Infusion Suite (Jolly) ?on Thursday11/17/15 at (spouse Mara instructed to contact Jolly at above number to schedule time) time. Diabetic Status: Patient is not a diabetic. IV access: Type of line: right basilic vein PICC Date placed: 11/16/15 at 8:22 am CM signature ?? CM MAVERICK Alvarez, sail repair person of Care [facility] pgr [phone] * Patient Instructions* Merle Alva [...] arranged for followup with Dr. Brown, a Poultry Husbandman who specializes in transplant patients. ANTIBIOTICS You [...] is a prescription for these procedures at [facility]. Your first dressing change and lab draw should happen on , November 22, 2015. Scheduled Appointments: You are scheduled to receive routine follow-up care in the transplant clinic: Solid Organ Transplant Department [facility], [address] [address] Future Appointments Future Appointments Date Time Provider [...] Department anytime (day, night, weekend, holiday) at [phone] . After hours, please follow the instructions [...] patient and his . Orders faxed to [facility] for pt's PICC dressing changes. He has current standing orders for weekly draws and will use these next week forhis repeat CBC/CMP. Pt and understand the medication changes and plan for antibiotics and do not have questions atthis time. Samia Escalante, JADEN [facility] Solid Organ Transplant [phone] (Pager: [phone]) * Ramez Serrano DO - 11/16/2015 1:02 [...] office and reviewed with spouse Mara what [facility] would provide andwhat she would be responsible for including daily PICC saline flush between hanging new IV ABX and reconnecting pump to patient. Per Carli patient is in agreement with performing daily saline PICC flushes between changing IV ABX. [facility] has arrange for teaching patient and spouse Mara saline flush and changing IV ABX bag tomorrow 11/17/[address] Fung and floor nurse notified. MAVERICK Anne, sail repair person of Care Management pgr [phone] * Claribel Roberts RN - 11/16/2015 11:09 AM EDT Office of Care Management Progress Note Office of Care Management/Nitrator Operator(CM) Home IV Antibiotic Therapy Referral Note. Office of Care Management/ Nitrator Operator(CM) Infusion Room Referral for Outpatient IV Antibiotic [...] patient???s address. Patient requested referral to: 1. [facility] Infusion Suite (Jolly) Telephone call to Jolly at 12:00. Confirmed with Jolly availability of service. Documentation faxed to Infusion Room via edischarge as follows: OPAT and PICC power line installer and repairer protocol Patient to report to 1. [facility] in [facility] Infusion Suite (Jolly) on Thursday11/17/15 at (spouse Mara instructed to contact Jolly at above number to schedule time) time. Diabetic Status: Patient is not a diabetic. IV access: Type of line: right basilic vein PICC Date placed: 11/16/15 at 8:22 am DEVORA signature MAVERICK Anne, sail repair person of Care Managemnt pgr [phone] * Claribel Roberts RN - 11/16/2015 9:46 AM EDT Office of Care Management Discharge Progress Note Patient would benefit from acute/SNF/swing/LTAC rehab at discharge. Full Disclosure Statement provided, as appropriate. ?? Met with patient at bedside and left VM for spouse Mara. Provided [facility], Office of Care Management letter from the Cylinder Valve Repairer pertaining to rehab referrals.. ?? Reviewed levels of rehab including SNF, swing, acute and LTAC. ?? A list that serves the geographical area which the patient resides or the geographical area requested has been provided through [employer] search. ?? Requested patient and Mara provide at least three choices for referral. ?? Patient request referrals to: 1. [facility] swing bed 2. [facility] swing bed Note routed to Correspondence Transcriber who will communicate referrals to facilities via [employer] program. MAVERICK Anne, sail repair person of Care Management pgr [phone] MAVERICK Anne, sail repair person of Care Management pgr [phone] * Tal [...] PICC and plan for IV abx at [facility] infusion suite. CRC is working on coverage. [...] Patient discussed with ID attending Dr. Sarai FATIMA MD Fellow, Infectious Disease 11/15/2015 Pager [phone] I have seen the patient and reviewed [...] with PICCand plan for IV abx at [facility] infusion suite. Start Calcitriol and increase Mag repletion today. Will talk to Francisco Brown (Transplant Poultry Husbandman) about HR Immune suppression Cellcept 500mg BID [...] sheets attached to pt's chart. Notified by telephone sales representative mid shift that pt had increase ectopy. [...] states she prefers to drive patient to [facility] for out patient infusion if possible due to coverage issues. Spouse stated they are still paying on patient's home infusion bill from last time. CM notified Dr. Dereje Alcantara, of patient/spouse preference and payor barrier. CMcontacted [facility] ([phone], fax [phone]) spoke with Le and provided requested info: patient name, , insurance, home phone, MD. Le will contact patient to set-up out patient infusion times tomorrow upon receiving faxed MD order from ID.Dr. Dereje Alcantara notified. DEVORA Roberts, BSN, sail repair person of Care Management pgr [phone] * Tal [...] EDT Office of Care Management (OCM) / Nitrator Operator(CM)/ Initial Assessment Discussed patient with Provider Team [...] Lives with spouse Mara who was primary ocular care technician post kidney transplant8 weeks ago. ADVANCE DIRECTIVES: None on file. Full Code. HEALTH /PRESCRIPTION COVERAGE: Active Insurance as of 11/12/2015 ? Primary Coverage ? Payor Plan Insurance Group Employer/Plan Group ? MEDICARE MEDICARE PART A & B ? Payor Plan Address Payor Plan Phone Number Effective From Effective To ? [address] [place] [address] 08/06/2013 ? [place] [address] ? Subscriber Name Subscriber Date Member ID ? ETHEL AKINS 1950 [id number] ? Secondary Coverage ? Payor Plan Insurance Group Employer/Plan Group ? [facility] NATIONAL OOS PPO [id number] ? Payor Plan Address Payor Plan Phone Number Effective From Effective To ? [address] 11/03/2013 ? [place] [address] ? Subscriber Name Subscriber Date Member ID ? ETHEL AKINS 1950 [id number] ? Visit Level Coverage Information ? Payor Plan Plan Phone Plan [facility] ? MEDICARE MEDICARE PART A & B [phone] [place] [address]] [phone] ? CURRENT HOME/COMMUNITY SERVICES/EQUIPMENT: DME:[facility] - Not happy with 2/2 co-pay issues and delivery of supplies not used. Home Health Agency: [facility] - Not happy with 2/2 SN came 3 times and never came back or explained why services were no longer needed. Other: [facility] Transplant Organ Clinic ELECTRICIAN OFFICE REFERRAL: Not needed at this time. PRIMARY CARE PHYSICIAN: ALBANIA DENIS, [address] / [place] [address] POTENTIAL DISCHARGE NEEDS: Spoke with patient Mara ([phone]) regarding possible discharge needs. Spouse stated she [...] assist with dischargeplanning while hospitalized MAVERICK Anne, sail repair person of Care Management pgr [phone] * Tal Eagle MD - 11/13/2015 10:31 [...] gentleman s/p kidney transplant who presents to [facility] for fever, weakness, urinary incontinence. Bacteremia/UTI -BC/UC+ [...] -Diltiazem Shadi Wagner, Nephrology Fellow Pager # [phone] Case was d/w Dr. Eagle I reviewed [...] EXTREMITY performed by Que Amaro MD at [facility] MAIN OR ??? Pro transplantation of kidney N/A 09/16/2015 @KIDNEY TRANSPLANT, WITHOUT RECIPIENT NEPHRECTOMY performed by Franko Larkin MD at [facility] MAIN OR ??? Pro transplant, prep cadaver renal graft N/A 09/16/2015 @PREPARATION CADAVERIC RENAL ALLOGRAFT performed by Franko Larkin MD at [facility] MAIN OR ??? N/A 09/16/2015 ORGAN ACQUISITION RENAL, CADAVERIC performed by Franko Larkin MD at [facility] OR Allergies: No Known Allergies Home Medications: [...] 0.7 BILIDIR <0.1 Micro: ?? Urine culture [[id number]] (Abnormal) Collected: 11/08/15 0855 ? Lab Status: [...] mg daily Conrad Gray MD PGY-2 Pager #[phone] 11/12/2015 I reviewed all of the above [...] to the planned procedure. Hand Hygiene: The infant room teacher did perform hand hygiene prior to line insertion. Catheter type: PICC Lot number: [id number] Procedure Technique: Skin was prepped with chlorhexidine. [...] onset afib. Pt continues to be on remote sensing advisor. * Kitty Francisco RN - 11/12/2015 11:37 [...] Francisco RN - 11/12/2015 10:10 PM EDT Soaker Soda Worker questioned by Dr Luu why cellcept and prograf doses had not been administered. Soaker Soda Worker informed MD that these need to come [...] Francisco RN - 11/12/2015 9:40 PM EDT Soaker Soda Worker spoke w/ pt's via phone who verbalized her frustration that her was still in the ED and that he had phoned her saying he was starving. Soaker Soda Worker attempted to explain to woman the ED process and how a pt is admitted and the thought of being able to consume a diet w/o possibility of aspiration. Pt's continued to verbalize frustration about the process feeling noone has checked on my since I left. Soaker Soda Worker attempted to reassure the . * Kitty Francisco RN - 11/12/2015 9:40 PM EDT PIV access to rt a/c dislodged; PIV 22g flushed well and abx reinitiated. * Kitty Francisco RN - 11/12/2015 9:20 PM EDT Soaker Soda Worker reassessed pt who appeared to questionable for ability to eat meal provided. Pt appeared confused, but was appropriate to commands and questions. Soaker Soda Worker noted that pt's EKG rhythm to have [...] 11/12/2015 5:30 PM EDT Pt's verbalized to policy writer sales and Emily STANLEY about her frustration that her has not been assessed by MD's for admission and that he does not have a hospital room. She stated that when she asked the slide developer about taking the pt the [facility], she was instructed to come to [facility] ED. She was informed that surgery needed to see the pt for assessment for admission, she verbalized her frustrationthat the transplant team was not seeing him and that he was not being admitted sooner. She mentioned wanting to talk to Dr Eagle. This policy writer sales and Emily STANLEY spoke w/ Dr Ferrell [...] (PICC) Teaching Sheet Peripherally inserted central catheters ([id number]-pj-kevm) (PICC) are used when you need IV [...] midline catheter? PICC lines are used for intermodal truck driver treatments. PICC lines may be used for [...] can be set up via the nurse Nitrator Operator to help you. What are possible [...] Vascular Access Device Selection, Insertion, and Management, HistoryFile Access Systems 04/09. A Review of the Efficacy, Safety, Use, and Administration of Cathflo, [employer] 2005 * Plan of Care - [...] receive IV antibiotics at infusion suite at [facility]. Infectious Disease will need to fax the prescription for IV antibiotics to [phone]. * Plan of Care - Ethel Benitez [...] Potassium, phosphate, and magnesium replacements ordered. Per forest technology professor frequency of SVT runs has decreased since [...] EXTREMITY performed by Que Amaro MD at [facility] MAIN OR ??? Pro transplantation of kidney N/A 09/16/2015 @KIDNEY TRANSPLANT, WITHOUT RECIPIENT NEPHRECTOMY performed by Franko Larkin MD at [facility] MAIN OR ??? Pro transplant, prep cadaver renal graft N/A 09/16/2015 @PREPARATION CADAVERIC RENAL ALLOGRAFT performed by Franko Larkin MD at [facility] MAIN OR ??? N/A 09/16/2015 ORGAN ACQUISITION RENAL, CADAVERIC performed by Franko Larkin MD at [facility] MAIN OR Social History and Habits: - [...] continue to follow patient. Page us at [phone] with any further questions or concerns. Recommendations are above and were discussed with the primary treating team. ID will sign off. Please page if further consultation required. This patient was seen and discussed with ID attending Dr. Sarai FATIMA MD Fellow, Infectious Disease 11/13/2015 Pager [phone] I have seen the patient and reviewed [...] OUTCOME EVALUATION NOTE: OUTCOME SUMMARY: Patient to [facility] from ED at 0030 on 11/13/15. Had [...] * Consult Note - Yeimi Vasquez [facility] - 11/12/2015 8:05 PM EDT Clinical Pharmacist Note-Vancomycin Ethel Akins [id number] Ethel Akins is a 65 y.o. [...] given now and followed by a dose [id number] mg every 24 hours, to start at [...] have. Alternately, during off-hours you may call [phone] to contact a pharmacist. YEIMI VASQUEZ RPH [...] PM EDT Office Visit Cardiology at [address] [phone] Jay Urban MD [facility] [place] [address] 04/15/2024 10:00 AM EDT Hospital Encounter [place] [phone] Arrived Scheduled Referrals Name Type Priority Associated Diagnoses Orde r Schedule OPAT: Order / Recommendation for Post Discharge IV Antibiotic Management Outpatient Referral Routine Bacteremia due to Enterococcus Ordered: 11/16/2015 documented as of this encounter Procedures Procedure Name Priority Date/Time Associated Diagnosis Comments QUALITY CONTROL MICROBIOLOGY SUPERVISOR SCAN 11/17/2015 12:00 AM EDT POCT GLUCOSE [...] STAT 11/13/2015 4:43 PM EDT CARDIAC ENZYMES ([facility]) STAT 11/13/2015 4:30 PM EDT BLOOD CULTURE STAT 11/13/2015 4:30 PM EDT POCT GLUCOSE Routine 11/13/2015 4:27 PM EDT POCT GLUCOSE Routine 11/13/2015 11:29 AM EDT POCT GLUCOSE Routine 11/13/2015 8:12 AM EDT HEMOGRAM STAT 11/13/2015 7:30 AM EDT DIFFERENTIAL, AUTOMATED STAT 11/13/2015 7:30 AM EDT CARDIAC ENZYMES ([facility]) STAT 11/13/2015 7:30 AM EDT TACROLIMUS LEVEL Timed 11/13/2015 7:30 AM EDT CBC (WITH DIFF) STAT 11/13/2015 7:30 AM EDT PHOSPHORUS STAT 11/13/2015 7:30 AM EDT MAGNESIUM STAT 11/13/2015 7:30 AM EDT BASIC METABOLIC PANEL STAT 11/13/2015 7:30 AM EDT POCT GLUCOSE Routine 11/13/2015 3:47 AM EDT CARDIAC ENZYMES ([facility]) STAT 11/13/2015 12:10 AM EDT EKG 12-LEAD [...] in this encounter Results * SCAN DOC: QUALITY CONTROL MICROBIOLOGY SUPERVISOR (11/17/2015 12:00 AM EDT) Anatomical Region Laterality Modality Other Scanning Provider MEDIA MGR SCAN EXT O RDR/RSLT * (ABNORMAL) POCT Glucose (11/16/2015 4:23 PM EDT) Glucose, POC 206(H) 65 - 199 mg/dL [facility] Comment: Supplemental ranges: <140 mg/dL before meals <180 mg/dL all other times of the day Blood specimen (specimen) 11/16/2015 4:23 PM EDT 11/16/2015 4:23 PM EDT Tal Eagle MD POINT OF CARE BOBY T ORDERABLES Performing Organization Address [facility] Co de Phone Number [facility] [place] [address] * POCT Glucose (11/16/2015 11:28 AM EDT) Glucose, POC 199 65 - 199 mg/dL [facility] Comment: Supplemental ranges: <140 mg/dL before meals <180 mg/dL all other times of the day Blood specimen (specimen) 11/16/2015 11:28 AM EDT 11/16/2015 11:28 AM EDT Tal Eagle MD POINT OF CARE BOBY T ORDERABLES Performing Organization Address City/[facility] Co de Phone Number [facility] [place] [address] * Place PICC Line: Contact Vascular Access Page [phone] Extremity to exclude: DO NOT use LEFT [...] to the planned procedure. Hand Hygiene: The infant room teacher did perform hand hygiene prior to line insertion. Catheter type: PICC Lot number: [id number] Procedure Technique: Skin was prepped with chlorhexidine. [...] * POCT Glucose (11/16/2015 7:18 AM EDT) [facility] Glucose, POC 169 65 - 199 mg/dL [facility] Comment: Supplemental ranges: <140 mg/dL before meals <180 mg/dL all other times of the day Blood specimen (specimen) 11/16/2015 7:18 AM EDT 11/16/2015 7:18 AM EDT Tal Eagle MD POINT OF CARE BOBY T ORDERABLES [facility] [place] [address] * Differential, Automated (11/16/2015 5:25 AM EDT) [facility] Neutrophil % 57.1 % [facility] Neutrophil Absolute 3.15 1.50 - 6.30 x10(3)/[facility] Lymph % 26.5 % [facility] Lymphocytes Abs 1.5 1.0 - 3.6 x10(3)/[facility] Monocyte % 12.7 % [facility] Monocyte Abs 0.7 0.2 - 1.0 x10(3)/[facility] Eos % 2.4 % [facility] Eosinophils Abs 0.1 0.0 - 0.5 x10(3)/[facility] Basophil % 0.9 % [facility] Baso Absolute 0.0 0.0 - 0.2 x10(3)/[facility] Immature Gran % 0.40 % [facility] Comment: Immature granulocytes(IG's)percentage and absolute count will include metamyelocytes, myelocytes, and promyelocytes. Blood smears from CBCs yielding IG's will be scanned manually for concordance. If this scan disagrees with the automated IG or if promyelocytes are noted, a manual differential will be performed. Immature Gran Absolute 0.02 0.00 - 0.05 x10(3)/[facility] Blood specimen (specimen) 11/16/2015 5:25 AM EDT 11/16/2015 5:32 AM EDT Narrative Resulting Agency Comment Spec In Lab Tal Eagle MD HEMATOLOGY ORDERA BLES [facility] [place] [address] * (ABNORMAL) Hemogram (11/16/2015 5:25 AM EDT) White Blood Cell 5.5 4.0 - 10.0 x10(3)/mc L [facility] Red Blood Cell 4.13(L) 4.63 - 6.08 x10(6)/mc L [facility] Hemoglobin 13.1(L) 13.7 - 17.5 gm/dL [facility] Hematocrit 37.8(L) 40.0 - 51.0 % [facility] [facility] Mean Cell Volume 91.5 79.0 - 92.0 fL [facility] Mean Cell Hemoglobin 31.7 25.6 - 32.2 pg [facility] Mean Cell Hemoglobin Concentration 34.7 32.0 - 36.5 gm/dL [facility] Platelet 233 145 - 370 x10(3)/ L [facility] RDW Standard Deviation 46.1(H) 35.0 - 46.0 fL [facility] RDW coefficient of variation 13.7 10.9 - 14.4 % [facility] Mean Platelet Volume 9.6 9.0 - 12.0 fL [facility] Blood specimen (specimen) 11/16/2015 5:25 AM EDT 11/16/2015 5:32 AM EDT Narrative Resulting Agency Comment Spec In Lab Tal Eagle MD HEMATOLOGY ORDERA BLES Performing Organization Address [facility]/ZIP Co de Phone Number [facility] [place] [address] * Blood culture (11/16/2015 5:25 AM EDT) Blood Culture No growth at 5 days. [facility] Blood specimen (specimen) STRUCTURE OF RIGHT HAND / Unknown 11/16/2015 5:25 AM EDT 11/16/2015 5:42 AM EDT Narrative Resulting Agency Comment Spec In Lab Tal Eagle MD MICROBIOLOGY - BL OOD ORDERABLES Performing Organization Address [facility] Co de Phone Number [facility] [place] [address] * (ABNORMAL) Phosphorus (11/16/2015 5:25 AM EDT) Phosphorus 2.3(L) 2.5 - 4.5 mg/dL [facility] Blood specimen (specimen) 11/16/2015 5:25 AM EDT 11/16/2015 5:32 AM EDT Narrative Resulting Agency Comment Spec In Lab Tal Eagle MD CHEMISTRY ORDERAB LES Performing Organization Address [facility] Co de Phone Number [facility] [place] [address] * (ABNORMAL) Magnesium (11/16/2015 5:25 AM EDT) Magnesium 0.62(L) 0.69 - 1.07 mmol/L [facility] Blood specimen (specimen) 11/16/2015 5:25 AM EDT 11/16/2015 5:32 AM EDT Narrative Resulting Agency Comment Spec In Lab Tal Eagle MD CHEMISTRY ORDERAB LES [facility] [place] [address] * (ABNORMAL) Basic Metabolic Panel (non-fasting) (11/16/2015 5:25 AM EDT) Glucose 146 65 - 199 mg/dL [facility] Comment:Diabetes: >=200 mg/d L plus symptoms Blood Urea Nitrogen 17 10 - 20 mg/dL [facility] Creatinine 1.36 0.80 - 1.50 mg/dL [facility] Comment: Please note that the pediatric reference intervals supplied above were not validated at [facility]. Results from pediatric patients should be interpreted in conjunction to the patient's age, height and muscle mass. Sodium 141 135 - 145 mmol/L [facility] Potassium 4.7 3.5 - 5.0 mmol/L [facility] Comment: Please note: ??Patients with WBC >100,000 may have falsely elevated Potassium levels. ??For accurate Potassium quantification in these patients send serum separator tube (gold top) for subsequent determinations. ??Contact the Clinical Chemistry Laboratory if there are any questions. Chloride 104 98 - 107 mmol/L [facility] Carbon Dioxide 24 22 - 31 mmol/L [facility] Anion Gap 13 5 - 15 mmol/L [facility] Calcium 9.2 8.5 - 10.5 mg/dL [facility] Est Glomerular Filtration Rate 52(L) >=60 [facility] Comment: This estimated [...] the following links into your internet browser. [email or web address] Blood specimen (specimen) 11/16/2015 5:25 AM EDT 11/16/2015 5:32 AM EDT Narrative Resulting Agency Comment Spec In Lab Tal Eagle MD CHEMISTRY ORDERAB LES Performing Organization Address City/[facility]/ZIP Co de Phone Number [facility] [place] [address] * POCT Glucose (11/16/2015 4:15 AM EDT) Glucose, POC 139 65 - 199 mg/dL [facility] Comment: Supplemental ranges: <140 mg/dL before meals <180 mg/dL all other times of the day Blood specimen (specimen) 11/16/2015 4:15 AM EDT 11/16/2015 4:15 AM EDT Tal Eagle MD POINT OF CARE BOBY T ORDERABLES Performing Organization Address [facility] Co de Phone Number [facility] [place] [address] * POCT Glucose (11/15/2015 11:46 PM EDT) Glucose, POC 140 65 - 199 mg/dL [facility] Comment: Supplemental ranges: <140 mg/dL before meals <180 mg/dL all other times of the day Blood specimen (specimen) 11/15/2015 11:46 PM EDT 11/15/2015 11:46 PM EDT Tal Eagle MD POINT OF CARE BOBY T ORDERABLES [facility] [place] [address] * POCT Glucose (11/15/2015 7:19 PM EDT) Glucose, POC 199 65 - 199 mg/dL [facility] Comment: Supplemental ranges: <140 mg/dL before meals <180 mg/dL all other times of the day Blood specimen (specimen) 11/15/2015 7:19 PM EDT 11/15/2015 7:19 PM EDT Tal Eagle MD POINT OF CARE BOBY T ORDERABLES [facility] [place] [address] * POCT Glucose (11/15/2015 4:41 PM EDT) Glucose, POC 197 65 - 199 mg/dL [facility] Comment: Supplemental ranges: <140 mg/dL before meals <180 mg/dL all other times of the day Blood specimen (specimen) 11/15/2015 4:41 PM EDT 11/15/2015 4:41 PM EDT Tal Eagle MD POINT OF CARE BOBY T ORDERABLES [facility] [place] [address] * POCT Glucose (11/15/2015 12:00 PM EDT) Glucose, POC 177 65 - 199 mg/dL [facility] Comment: Supplemental ranges: <140 mg/dL before meals <180 mg/dL all other times of the day Blood specimen (specimen) 11/15/2015 12:00 PM EDT 11/15/2015 12:00 PM EDT Tal Eagle MD POINT OF CARE BOBY T ORDERABLES [facility] [place] [address] * POCT Glucose (11/15/2015 7:21 AM EDT) Glucose, POC 132 65 - 199 mg/dL [facility] Comment: Supplemental ranges: <140 mg/dL before meals <180 mg/dL all other times of the day Blood specimen (specimen) 11/15/2015 7:21 AM EDT 11/15/2015 7:21 AM EDT Tal Eagle MD POINT OF CARE BOBY T ORDERABLES [facility] [place] [address] * Differential, Automated (11/15/2015 6:14 AM EDT) [facility] Neutrophil % 67.5 % [facility] Neutrophil Absolute 4.24 1.50 - 6.30 x10(3)/[facility] Lymph % 18.0 % [facility] Lymphocytes Abs 1.1 1.0 - 3.6 x10(3)/[facility] Monocyte % 12.9 % [facility] Monocyte Abs 0.8 0.2 - 1.0 x10(3)/[facility] Eos % 0.8 % [facility] Eosinophils Abs 0.0 0.0 - 0.5 x10(3)/[facility] Basophil % 0.5 % [facility] Baso Absolute 0.0 0.0 - 0.2 x10(3)/[facility] Immature Gran % 0.30 % [facility] Comment: Immature granulocytes(IG's)percentage and absolute count will include metamyelocytes, myelocytes, and promyelocytes. Blood smears from CBCs yielding IG's will be scanned manually for concordance. If this scan disagrees with the automated IG or if promyelocytes are noted, a manual differential will be performed. Immature Gran Absolute 0.02 0.00 - 0.05 x10(3)/[facility] Blood specimen (specimen) 11/15/2015 6:14 AM EDT 11/15/2015 6:34 AM EDT Narrative Resulting Agency Comment Spec In Lab Tal Eagle MD HEMATOLOGY ORDERA BLES Performing Organization Address City/[facility]/ZIP Co de Phone Number [facility] [place] [address] * (ABNORMAL) Hemogram (11/15/2015 6:14 AM EDT) White Blood Cell 6.3 4.0 - 10.0 x10(3)/mc L [facility] Red Blood Cell 3.97(L) 4.63 - 6.08 x10(6)/mc L [facility] Hemoglobin 12.8(L) 13.7 - 17.5 gm/dL [facility] Hematocrit 36.0(L) 40.0 - 51.0 % [facility] Mean Cell Volume 90.7 79.0 - 92.0 fL [facility] Mean Cell Hemoglobin 32.2 25.6 - 32.2 pg [facility] Mean Cell Hemoglobin Concentration 35.6 32.0 - 36.5 gm/dL [facility] Platelet 215 145 - 370 x10(3)/mc L [facility] RDW Standard Deviation 45.6 35.0 - 46.0 fL [facility] RDW coefficient of variation 13.7 10.9 - 14.4 % [facility] Mean Platelet Volume 9.8 9.0 - 12.0 fL [facility] Blood specimen (specimen) 11/15/2015 6:14 AM EDT 11/15/2015 6:34 AM EDT Narrative Resulting Agency Comment Spec In Lab Tal Eagle MD HEMATOLOGY ORDERA BLES Performing Organization Address City/[facility]/ZIP Co de Phone Number [facility] [place] [address] * Blood culture (11/15/2015 6:14 AM EDT) Blood Culture No growth at 5 days. [facility] Blood specimen (specimen) STRUCTURE OF RIGHT HAND / Unknown 11/15/2015 6:14 AM EDT 11/15/2015 7:39 AM EDT Narrative Resulting Agency Comment Spec In Lab Tal Eagle MD MICROBIOLOGY - BL OOD ORDERABLES Performing Organization Address City/[facility]/ZIP Co de Phone Number [facility] [place] [address] * (ABNORMAL) Phosphorus (11/15/2015 6:14 AM EDT) [facility] Phosphorus 1.8(L) 2.5 - 4.5 mg/dL [facility] Blood specimen (specimen) 11/15/2015 6:14 AM EDT 11/15/2015 6:34 AM EDT Narrative Resulting Agency Comment Spec In Lab Tal Eagle MD CHEMISTRY ORDERAB LES Performing Organization Address [facility] Co de Phone Number [facility] [place] [address] * (ABNORMAL) Magnesium (11/15/2015 6:14 AM EDT) [facility] Magnesium 0.55(L) 0.69 - 1.07 mmol/L [facility] Blood specimen (specimen) 11/15/2015 6:14 AM EDT 11/15/2015 6:34 AM EDT Narrative Resulting Agency Comment Spec In Lab Tal Eagle MD CHEMISTRY ORDERAB LES Performing Organization Address City/[facility]/ZIP Co de Phone Number [facility] [place] [address] * (ABNORMAL) Basic Metabolic Panel (non-fasting) (11/15/2015 6:14 AM EDT) Glucose 139 65 - 199 mg/dL [facility] Comment:Diabetes: >=200 mg/d L plus symptoms Blood Urea Nitrogen 12 10 - 20 mg/dL [facility] Creatinine 1.28 0.80 - 1.50 mg/dL [facility] Comment: Please note that the pediatric reference intervals supplied above were not validated at [facility]. Results from pediatric patients should be interpreted in conjunction to the patient's age, height and muscle mass. Sodium 138 135 - 145 mmol/L [facility] Potassium 4.1 3.5 - 5.0 mmol/L [facility] Comment: Please note: ??Patients with WBC >100,000 may have falsely elevated Potassium levels. ??For accurate Potassium quantification in these patients send serum separator tube (gold top) for subsequent determinations. ??Contact the Clinical Chemistry Laboratory if there are any questions. Chloride 102 98 - 107 mmol/L [facility] Carbon Dioxide 23 22 - 31 mmol/L [facility] Anion Gap 13 5 - 15 mmol/L [facility] Calcium 8.6 8.5 - 10.5 mg/dL [facility] Est Glomerular Filtration Rate 56(L) >=60 [facility] Comment: This estimated [...] the following links into your internet browser. [email or web address] Blood specimen (specimen) 11/15/2015 6:14 AM EDT 11/15/2015 6:34 AM EDT Narrative Resulting Agency Comment Spec In Lab Tal Eagle MD CHEMISTRY ORDERAB LES [facility] [place] [address] * POCT Glucose (11/15/2015 4:29 AM EDT) Glucose, POC 127 65 - 199 mg/dL [facility] Comment: Supplemental ranges: <140 mg/dL before meals <180 mg/dL all other times of the day Blood specimen (specimen) 11/15/2015 4:29 AM EDT 11/15/2015 4:29 AM EDT Tal Eagle MD POINT OF CARE BOBY T ORDERABLES [facility] [place] [address] * POCT Glucose (11/15/2015 12:21 AM EDT) Glucose, POC 145 65 - 199 mg/dL [facility] Comment: Supplemental ranges: <140 mg/dL before meals <180 mg/dL all other times of the day Blood specimen (specimen) 11/15/2015 12:21 AM EDT 11/15/2015 12:21 AM EDT Tal Eagle MD POINT OF CARE BOBY T ORDERABLES Performing Organization Address [facility] Co de Phone Number [facility] [place] [address] * (ABNORMAL) POCT Glucose (11/14/2015 7:12 PM EDT) Glucose, POC 206(H) 65 - 199 mg/dL [facility] Comment: Supplemental ranges: <140 mg/dL before meals <180 mg/dL all other times of the day Blood specimen (specimen) 11/14/2015 7:12 PM EDT 11/14/2015 7:12 PM EDT Narrative Authorizing Provider Result Brodie Eagle MD POINT OF CARE BOBY T ORDERABLES Performing Organization Address City/[facility]/ZIP Co de Phone Number [facility] [place] [address] * EKG 12 Lead (11/14/2015 5:24 PM EDT) Ventricular rate 73 BPM MUSE SYSTEM Atrial Rate 73 BPM MUSE SYSTEM P-R Interval 160 ms MUSE SYSTEM QRS Duration 100 ms MUSE SYSTEM Q-T Interval 376 ms MUSE SYSTEM QTC Calculated (Bezet) 414 ms MUSE SYSTEM Calculated P [place] 60 degrees MUSE SYSTEM Calculated R [place] -55 degrees MUSE SYSTEM Calculated T [place] -8 degrees MUSE SYSTEM INTERPRETATION Sinus rhythm [...] AM EDT Tal Eagle MD ECG ORDERABLES Performing Organization Address City/[facility]/ZIP Co de Phone Number MUSE SYSTEM * POCT Glucose (11/14/2015 3:55 PM EDT) Pathologist [facility] Glucose, POC 176 65 - 199 mg/dL [facility] Comment: Supplemental ranges: <140 mg/dL before meals <180 mg/dL all other times of the day Blood specimen (specimen) 11/14/2015 3:55 PM EDT 11/14/2015 3:55 PM EDT Tal Eagle MD POINT OF CARE BOBY T ORDERABLES [facility] [place] [place] [address] * US Renal Transplant Left (11/14/2015 1:51 [...] 02:19 pm) Patient Info ID #: ? [id number] ? : [birth year] (65 yrs) Name: ? ETHEL Gomez MABLE ? Visit Date:11/14/2015 01:51 pm Performed By Performed By: ? Jessee Espinal RDMS Attending: ?Kerry GERBER, Jolly Gomez. Referred By: ?ALBANIA SCHMID MD Service(s) Provided ??URTPL - Ultrasound Renal Transplant - Left - [id number] Indications ??admitted with UTI, rule out abscess [...] Final 11/14/2015 02:19pm) Patient Info ID #: [id number] : [birth year] (65 yrs) Name: ETHEL AKINS Visit Date:11/14/2015 01:51 pm Performed By Performed By: Jessee Espinal RDMS Attending: Jolly Payne MD Referred By: ALBANIA SCHMID MD Service(s) Provided URTPL - Ultrasound Renal Transplant - Left - [id number] Indications admitted with UTI, rule out abscess [...] Report 11/14/2015 02:19 pm Tal Eagle MD IMG US GEN ORDERA BLES * POCT Glucose (11/14/2015 11:58 AM EDT) Pathologist [facility] Glucose, POC 134 65 - 199 mg/dL [facility] Comment: Supplemental ranges: <140 mg/dL before meals <180 mg/dL all other times of the day Blood specimen (specimen) 11/14/2015 11:58 AM EDT 11/14/2015 11:58 AM EDT Tal Eagle MD POINT OF CARE BOBY T ORDERABLES Performing Organization Address City/[facility] Co de Phone Number [facility] [place] [address] * Tacrolimus level (11/14/2015 9:42 AM EDT) Tacrolimus 9.0 ng/mL [facility] Comment:Trough therapeutic: 5-15 ng/mL Blood specimen (specimen) 11/14/2015 9:42 AM EDT 11/14/2015 10:48 AM EDT Narrative Resulting Agency Comment Spec In Lab Tal Eagle MD CHEMISTRY ORDERAB LES Performing Organization Address [facility] Co de Phone Number [facility] [place] [address] * (ABNORMAL) POCT Glucose (11/14/2015 7:26 AM EDT) Glucose, POC 201(H) 65 - 199 mg/dL [facility] Comment: Supplemental ranges: <140 mg/dL before meals <180 mg/dL all other times of the day Blood specimen (specimen) 11/14/2015 7:26 AM EDT 11/14/2015 7:26 AM EDT Tal Eagle MD POINT OF CARE BOBY T ORDERABLES Performing Organization Address [facility] Co de Phone Number [facility] [place] [address] * (ABNORMAL) Phosphorus (11/14/2015 5:18 AM EDT) Phosphorus 1.6(L) 2.5 - 4.5 mg/dL [facility] Blood specimen (specimen) Venous Draw / Unknown 11/14/2015 5:18 AM EDT 11/14/2015 6:05 AM EDT Narrative Resulting Agency Comment Spec In Lab Tal Eagle MD CHEMISTRY ORDERAB LES Performing Organization Address City/[facility]/ZIP Co de Phone Number [facility] [place] [address] * (ABNORMAL) Magnesium (11/14/2015 5:18 AM EDT) Pathologist [facility] Magnesium 0.59(L) 0.69 - 1.07 mmol/L [facility] Blood specimen (specimen) Venous Draw / Unknown 11/14/2015 5:18 AM EDT 11/14/2015 6:05 AM EDT Narrative Resulting Agency Comment Spec In Lab Tal Eagle MD CHEMISTRY ORDERAB LES Performing Organization Address [facility]/ZIP Co de Phone Number [facility] [place] [address] * Blood culture (11/14/2015 5:18 AM EDT) [facility] Blood Culture No growth at 5 days. [facility] Blood specimen (specimen) STRUCTURE OF RIGHT HAND / Unknown 11/14/2015 5:18 AM EDT 11/14/2015 7:35 AM EDT Narrative Resulting Agency Comment Spec In Lab Tal Eagle MD MICROBIOLOGY - BL OOD ORDERABLES Performing Organization Address City/[facility]/ZIP Co de Phone Number [facility] [place] [address] * (ABNORMAL) Differential, Automated (11/14/2015 5:18 AM EDT) Neutrophil % 79.9 % [facility] Neutrophil Absolute 6.85(H) 1.50 - 6.30 x10(3)/mc L [facility] Lymph % 9.8 % [facility] Lymphocytes Abs 0.8(L) 1.0 - 3.6 x10(3)/mc L [facility] Monocyte % 9.5 % [facility] Monocyte Abs 0.8 0.2 - 1.0 x10(3)/[facility] Eos % 0.2 % [facility] Eosinophils Abs 0.0 0.0 - 0.5 x10(3)/[facility] Basophil % 0.2 % [facility] Baso Absolute 0.0 0.0 - 0.2 x10(3)/[facility] Immature Gran % 0.40 % [facility] Comment: Immature granulocytes(IG's)percentage and absolute count will include metamyelocytes, myelocytes, and promyelocytes. Blood smears from CBCs yielding IG's will be scanned manually for concordance. If this scan disagrees with the automated IG or if promyelocytes are noted, a manual differential will be performed. Immature Gran Absolute 0.03 0.00 - 0.05 x10(3)/[facility] Blood specimen (specimen) 11/14/2015 5:18 AM EDT 11/14/2015 6:05 AM EDT Narrative Resulting Agency Comment Spec In Lab Tal Eagle MD HEMATOLOGY ORDERA BLES [facility] [place] [address] * (ABNORMAL) Hemogram (11/14/2015 5:18 AM EDT) White Blood Cell 8.6 4.0 - 10.0 x10(3)/[facility] Red Blood Cell 4.18(L) 4.63 - 6.08 x10(6)/[facility] Hemoglobin 13.2(L) 13.7 - 17.5 gm/dL [facility] Hematocrit 38.0(L) 40.0 - 51.0 % [facility] Mean Cell Volume 90.9 79.0 - 92.0 fL [facility] Mean Cell Hemoglobin 31.6 25.6 - 32.2 pg [facility] Mean Cell Hemoglobin Concentration 34.7 32.0 - 36.5 gm/dL [facility] Platelet 223 145 - 370 x10(3)/mc L [facility] RDW Standard Deviation 47.4(H) 35.0 - 46.0 fL [facility] RDW coefficient of variation 14.3 10.9 - 14.4 % [facility] Mean Platelet Volume 9.6 9.0 - 12.0 fL [facility] Blood specimen (specimen) 11/14/2015 5:18 AM EDT 11/14/2015 6:05 AM EDT Narrative Resulting Agency Comment Spec In Lab Tal Eagle MD HEMATOLOGY ORDERA BLES [facility] [place] [address] * (ABNORMAL) Basic Metabolic Panel (non-fasting) (11/14/2015 5:18 AM EDT) Glucose 168 65 - 199 mg/dL [facility] Comment:Diabetes: >=200 mg/d L plus symptoms Blood Urea Nitrogen 13 10 - 20 mg/dL [facility] Creatinine 1.47 0.80 - 1.50 mg/dL [facility] Comment: Please note that the pediatric reference intervals supplied above were not validated at [facility]. Results from pediatric patients should be interpreted in conjunction to the patient's age, height and muscle mass. Sodium 135 135 - 145 mmol/L [facility] Potassium 3.9 3.5 - 5.0 mmol/L [facility] Comment: Please note: ??Patients with WBC >100,000 may have falsely elevated Potassium levels. ??For accurate Potassium quantification in these patients send serum separator tube (gold top) for subsequent determinations. ??Contact the Clinical Chemistry Laboratory if there are any questions. Chloride 98 98 - 107 mmol/L [facility] Carbon Dioxide 23 22 - 31 mmol/L [facility] Anion Gap 14 5 - 15 mmol/L [facility] Calcium 8.7 8.5 - 10.5 mg/dL [facility] Est Glomerular Filtration Rate 48(L) >=60 [facility] Comment: This estimated [...] the following links into your internet browser. [email or web address] Blood specimen (specimen) 11/14/2015 5:18 AM EDT 11/14/2015 6:05 AM EDT Narrative Resulting Agency Comment Spec In Lab Tal Eagle MD CHEMISTRY ORDERAB LES Performing Organization Address City/[facility]/ZIP Co de Phone Number [facility] [place] [address] * POCT Glucose (11/14/2015 4:25 AM EDT) Glucose, POC 159 65 - 199 mg/dL [facility] Comment: Supplemental ranges: <140 mg/dL before meals <180 mg/dL all other times of the day Blood specimen (specimen) 11/14/2015 4:25 AM EDT 11/14/2015 4:25 AM EDT Tal Eagle MD POINT OF CARE BOBY T ORDERABLES Performing Organization Address City/[facility]/ZIP Co de Phone Number [facility] [place] [address] * POCT Glucose (11/14/2015 12:12 AM EDT) Glucose, POC 180 65 - 199 mg/dL [facility] Comment: Supplemental ranges: <140 mg/dL before meals <180 mg/dL all other times of the day Blood specimen (specimen) 11/14/2015 12:12 AM EDT 11/14/2015 12:12 AM EDT Tal Eagle MD POINT OF CARE BOBY T ORDERABLES [facility] [place] [address] * POCT Glucose (11/13/2015 8:13 PM EDT) Glucose, POC 182 65 - 199 mg/dL [facility] Comment: Supplemental ranges: <140 mg/dL before meals <180 mg/dL all other times of the day Blood specimen (specimen) 11/13/2015 8:13 PM EDT 11/13/2015 8:13 PM EDT Tal Eagle MD POINT OF CARE BOBY T ORDERABLES [facility] [place] [address] * POCT Glucose (11/13/2015 7:02 PM EDT) Glucose, POC 153 65 - 199 mg/dL [facility] Comment: Supplemental ranges: <140 mg/dL before meals <180 mg/dL all other times of the day Blood specimen (specimen) 11/13/2015 7:02 PM EDT 11/13/2015 7:02 PM EDT Tal Eagle MD POINT OF CARE BOBY T ORDERABLES [facility] [place] [address] * Blood culture (11/13/2015 4:43 PM EDT) Blood Culture No growth at 5 days. [facility] Blood specimen (specimen) 11/13/2015 4:43 PM EDT 11/13/2015 5:11 PM EDT Comment:RH Narrative Resulting Agency Comment Spec In Lab Tal Eagle MD MICROBIOLOGY - BL OOD ORDERABLES Performing Organization Address City/[facility]/ZIP Co de Phone Number [facility] [place] [address] * Blood culture (11/13/2015 4:30 PM EDT) Blood Culture No growth at 5 days. [facility] Blood specimen (specimen) 11/13/2015 4:30 PM EDT 11/13/2015 5:11 PM EDT Comment:RA Narrative Resulting Agency Comment Spec In Lab Tal Eagle MD MICROBIOLOGY - BL OOD ORDERABLES Performing Organization Address [facility] Co de Phone Number [facility] [place] [address] * (ABNORMAL) Cardiac Enzymes (11/13/2015 4:30 PM EDT) Troponin-T <0.03 <=0.03 ng/mL [facility] Comment: 0.03 ng/mL: Represents the 99th percentile upper reference limit for normals. >0.03 ng/mL: Elevated cardiac troponin T level indicative of myocardial damage. Diagnosis of acute, evolving or recent AL requires a typical rise and gradual fall [...] consensus document of the Joint Society of Cardiology/[place] [employer] Committee for the redefinition of myocardial infarction. ??Journal of the [place] College [employer] 2000; 36: 959-969] Creatine Kinase 277(H) 0 - 200 unit/L [facility] Blood specimen (specimen) 11/13/2015 4:30 PM EDT 11/13/2015 4:50 PM EDT Narrative Resulting Agency Comment Spec In Lab Tal Eagle MD CHEMISTRY ORDERAB LES [facility] [place] [address] * POCT Glucose (11/13/2015 4:27 PM EDT) Glucose, POC 185 65 - 199 mg/dL [facility] Comment: Supplemental ranges: <140 mg/dL before meals <180 mg/dL all other times of the day Blood specimen (specimen) 11/13/2015 4:27 PM EDT 11/13/2015 4:27 PM EDT Tal Eagle MD POINT OF CARE BOBY T ORDERABLES Performing Organization Address City/[facility]/ZIP Co de Phone Number [facility] [place] [address] * POCT Glucose (11/13/2015 11:29 AM EDT) Glucose, POC 184 65 - 199 mg/dL [facility] Comment: Supplemental ranges: <140 mg/dL before meals <180 mg/dL all other times of the day Blood specimen (specimen) 11/13/2015 11:29 AM EDT 11/13/2015 11:29 AM EDT Tal Eagle MD POINT OF CARE BOBY T ORDERABLES Performing Organization Address City/[facility]/ZIP Co de Phone Number [facility] [place] [address] * (ABNORMAL) POCT Glucose (11/13/2015 8:12 AM EDT) Glucose, POC 228(H) 65 - 199 mg/dL [facility] Comment: Supplemental ranges: <140 mg/dL before meals <180 mg/dL all other times of the day Blood specimen (specimen) 11/13/2015 8:12 AM EDT 11/13/2015 8:12 AM EDT Tal Eagle MD POINT OF CARE BOBY T ORDERABLES Performing Organization Address [facility] Co de Phone Number [facility] [place] [address] * (ABNORMAL) Phosphorus (11/13/2015 7:30 AM EDT) Phosphorus 1.6(L) 2.5 - 4.5 mg/dL [facility] Blood specimen (specimen) Venous Draw / Unknown 11/13/2015 7:30 AM EDT 11/13/2015 7:52 AM EDT Narrative Resulting Agency Comment Spec In Lab Tal Eagle MD CHEMISTRY ORDERAB LES Performing Organization Address [facility] Co de Phone Number [facility] [place] [address] * (ABNORMAL) Magnesium (11/13/2015 7:30 AM EDT) Magnesium 0.40(L) 0.69 - 1.07 mmol/L [facility] Blood specimen (specimen) Venous Draw / Unknown 11/13/2015 7:30 AM EDT 11/13/2015 7:52 AM EDT Narrative Resulting Agency Comment Spec In Lab Tal Eagle MD CHEMISTRY ORDERAB LES Performing Organization Address [facility] Co de Phone Number [facility] [place] [address] * Cardiac Enzymes (11/13/2015 7:30 AM EDT) Troponin-T <0.03 <=0.03 ng/mL [facility] Comment: 0.03 ng/mL: Represents the 99th percentile upper reference limit for normals. >0.03 ng/mL: Elevated cardiac troponin T level indicative of myocardial damage. Diagnosis of acute, evolving or recent AL requires a typical rise and gradual fall [...] consensus document of the Joint Society of Cardiology/[place] [employer] Committee for the redefinition of myocardial infarction. ??Journal of the [place] [employer]iology 2000; 36: 959-969] Creatine Kinase 193 0 - 200 unit/L [facility] Comment:result rechecked-mkf Blood specimen (specimen) Venous Draw / Unknown 11/13/2015 7:30 AM EDT 11/13/2015 7:52 AM EDT Narrative Resulting Agency Comment Spec In Lab Tal Eagle MD CHEMISTRY ORDERAB LES Performing Organization Address City/State/[facility] Co de Phone Number [facility] [place] [address] * (ABNORMAL) Differential, Automated (11/13/2015 7:30 AM EDT) Neutrophil % 86.3 % [facility] Neutrophil Absolute 8.26(H) 1.50 - 6.30 x10(3)/mc L [facility] Lymph % 6.9 % [facility] Lymphocytes Abs 0.7(L) 1.0 - 3.6 x10(3)/mc L [facility] Monocyte % 6.2 % [facility] Monocyte Abs 0.6 0.2 - 1.0 x10(3)/mc L [facility] Eos % 0.1 % [facility] Eosinophils Abs 0.0 0.0 - 0.5 x10(3)/mc L [facility] Basophil % 0.2 % [facility] Baso Absolute 0.0 0.0 - 0.2 x10(3)/mc L [facility] Immature Gran % 0.30 % [facility] Comment: Immature granulocytes(IG's)percentage and absolute count will include metamyelocytes, myelocytes, and promyelocytes. Blood smears from CBCs yielding IG's will be scanned manually for concordance. If this scan disagrees with the automated IG or if promyelocytes are noted, a manual differential will be performed. Immature Gran Absolute 0.03 0.00 - 0.05 x10(3)/[facility] Blood specimen (specimen) 11/13/2015 7:30 AM EDT 11/13/2015 7:52 AM EDT Narrative Resulting Agency Comment Spec In Lab Tal Eagle MD HEMATOLOGY ORDERA BLES [facility] [place] [address] * (ABNORMAL) Hemogram (11/13/2015 7:30 AM EDT) White Blood Cell 9.6 4.0 - 10.0 x10(3)/[facility] Red Blood Cell 4.00(L) 4.63 - 6.08 x10(6)/[facility] Hemoglobin 13.0(L) 13.7 - 17.5 gm/dL [facility] Hematocrit 36.3(L) 40.0 - 51.0 % [facility] Mean Cell Volume 90.8 79.0 - 92.0 fL [facility] Mean Cell Hemoglobin 32.5(H) 25.6 - 32.2 pg [facility] Mean Cell Hemoglobin Concentration 35.8 32.0 - 36.5 gm/dL [facility] Platelet 214 145 - 370 x10(3)/[facility] RDW Standard Deviation 46.6(H) 35.0 - 46.0 fL [facility] RDW coefficient of variation 14.0 10.9 - 14.4 % [facility] Mean Platelet Volume 9.4 9.0 - 12.0 fL [facility] Blood specimen (specimen) 11/13/2015 7:30 AM EDT 11/13/2015 7:52 AM EDT Narrative Resulting Agency Comment Spec In Lab Tal Eagle MD HEMATOLOGY ORDERA BLES [facility] [place] [place] [address] * (ABNORMAL) Basic Metabolic Panel (non-fasting) (11/13/2015 7:30 AM EDT) Glucose 238(H) 65 - 199 mg/dL [facility] Comment:Diabetes: >=200 mg/d L plus symptoms Blood Urea Nitrogen 16 10 - 20 mg/dL [facility] Creatinine 1.71(H) 0.80 - 1.50 mg/dL [facility] Comment: Please note that the pediatric reference intervals supplied above were not validated at [facility]. Results from pediatric patients should be interpreted in conjunction to the patient's age, height and muscle mass. Sodium 133(L) 135 - 145 mmol/L [facility] Potassium 3.0(Criti raulito) 3.5 - 5.0 mmol/L [facility] Comment: Results rechecked-mkf Called by: canelo, Read back by:tania rendon _, Date/Time:11/13/15 09:12. Please note: ??Patients with WBC >100,000 may have falsely elevated Potassium levels. ??For accurate Potassium quantification in these patients send serum separator tube (gold top) for subsequent determinations. ??Contact the Clinical Chemistry Laboratory if there are any questions. Chloride 98 98 - 107 mmol/L [facility] Carbon Dioxide 21(L) 22 - 31 mmol/L [facility] Anion Gap 14 5 - 15 mmol/L [facility] Calcium 8.2(L) 8.5 - 10.5 mg/dL [facility] Comment:result rechecked-mkf Est Glomerular Filtration Rate 40(L) >=60 [facility] Comment: This [...] the following links into your internet browser. [email or web address] Blood specimen (specimen) 11/13/2015 7:30 AM EDT 11/13/2015 7:52 AM EDT Narrative Resulting Agency Comment Spec In Lab Tal Eagle MD CHEMISTRY ORDERAB LES Performing Organization Address City/[facility]/ZIP Co de Phone Number [facility] [place] [address] * Tacrolimus level (11/13/2015 7:30 AM EDT) Tacrolimus 10.7 ng/mL [facility] Comment:Trough therapeutic: 5-15 ng/mL Blood specimen (specimen) 11/13/2015 7:30 AM EDT 11/13/2015 11:08 AM EDT Narrative Resulting Agency Comment Spec In Lab Tal Eagle MD CHEMISTRY ORDERAB LES Performing Organization Address City/[facility]/ZIP Co de Phone Number [facility] [place] [address] * POCT Glucose (11/13/2015 3:47 AM EDT) Glucose, POC 162 65 - 199 mg/dL [facility] Comment: Supplemental ranges: <140 mg/dL before meals <180 mg/dL all other times of the day Blood specimen (specimen) 11/13/2015 3:47 AM EDT 11/13/2015 3:47 AM EDT Tal Eagle MD POINT OF CARE BOBY T ORDERABLES Performing Organization Address [facility] Co de Phone Number [facility] [place] [address] * Cardiac Enzymes (11/13/2015 12:10 AM EDT) [facility] Troponin-T <0.03 <=0.03 ng/mL [facility] Comment: 0.03 ng/mL: Represents the 99th percentile upper reference limit for normals. >0.03 ng/mL: Elevated cardiac troponin T level indicative of myocardial damage. Diagnosis of acute, evolving or recent AL requires a typical rise and gradual fall [...] consensus document of the Joint Society of Cardiology/[place] [employer] Committee for the redefinition of myocardial infarction. ??Journal of the [place] [employer]iology 2000; 36: 959-969] Creatine Kinase 110 0 - 200 unit/L [facility] Blood specimen (specimen) 11/13/2015 12:10 AM EDT 11/13/2015 12:19 AM EDT Narrative Resulting Agency Comment Spec In Lab Tal Eagle MD CHEMISTRY ORDERAB LES Performing Organization Address [facility]/ZIP Co de Phone Number [facility] [place] [address] * EKG 12 Lead (11/12/2015 10:35 PM EDT) [facility] Ventricular rate 102 BPM MUSE SYSTEM Atrial Rate 107 BPM MUSE SYSTEM QRS Duration 94 ms MUSE SYSTEM Q-T Interval 358 ms MUSE SYSTEM QTC Calculated (Bezet) 466 ms MUSE SYSTEM Calculated R [place] -60 degrees MUSE SYSTEM Calculated T [place] 19 degrees MUSE SYSTEM INTERPRETATION Sinus tachycardia [...] 2:30 PM EDT) Lactate WB 2.4(H) mmol/L [facility] Comment: Reference Interval: Whole Blood Lactate: 0.5 to 2.2 mmol/L Blood specimen (specimen) 11/12/2015 2:30 PM EDT 11/12/2015 2:30 PM EDT Emergency Dept CHEMISTRY ORDERABLE S Performing Organization Address [facility] Co de Phone Number [facility] [place] [address] * (ABNORMAL) Urine culture (11/12/2015 2:27 PM EDT) [facility] Urine Culture Greater than 100,000 cfu/ml Enterococcus species(A) [facility] Organism Enterococcus species(A) [facility] Urine specimen obtained [...] - GENE RAL ORDERABLES Performing Organization Address [facility] Co de Phone Number [facility] [place] [address] * (ABNORMAL) Urinalysis with reflex Culture (11/12/2015 2:27 PM EDT) Glucose, Urine Dipstick 50(A) Negative mg/dL [facility] Protein, [...] [facility] pH, Urn (dipstick) 5.0 5.0 - 8.0 [facility] Blood, Urine Dipstick Moderate(A) Negative mg/dL [facility] Ketone, Urine Dipstick Negative Negative mg/dL [facility] Nitrite, Urine Dipstick Negative Negative [facility] Leukocytes, Urine Dipstick Small(A) Negative [facility] Appearance, Urine Dipstick Clear Clear [facility] Specific [place] Urine Automated 1.014 1.002 - 1.030 [facility] Color, Urine Dipstick Yellow Yellow [facility] RBC, Urine 3 0 - 3 /HPF [facility] WBC, Urine 20(H) 0 - 3 /HPF [facility] WBC Clumps, Urine Rare(A) None /HPF [facility] Bacteria, Urine Rare(A) None /HPF [facility] Reflex to Culture Yes [facility] Urine specimen obtained by clean catch procedure (specimen) 11/12/2015 2:27 PM EDT 11/12/2015 2:43 PM EDT Narrative Resulting Agency Comment Spec In Lab Paola Colbert MD URINE ORDERABLES [facility] [place] [address] * (ABNORMAL) Differential, Automated (11/12/2015 2:25 PM EDT) Neutrophil % 88.6 % [facility] Neutrophil Absolute 8.96(H) 1.50 - 6.30 x10(3)/mc L [facility] Lymph % 5.3 % [facility] Lymphocytes Abs 0.5(L) 1.0 - 3.6 x10(3)/ L [facility] Monocyte % 5.1 % [facility] Monocyte Abs 0.5 0.2 - 1.0 x10(3)/[facility] Eos % 0.2 % [facility] Eosinophils Abs 0.0 0.0 - 0.5 x10(3)/[facility] Basophil % 0.3 % [facility] Baso Absolute 0.0 0.0 - 0.2 x10(3)/[facility] Immature Gran % 0.50 % [facility] Comment: Immature granulocytes(IG's)percentage and absolute count will include metamyelocytes, myelocytes, and promyelocytes. Blood smears from CBCs yielding IG's will be scanned manually for concordance. If this scan disagrees with the automated IG or if promyelocytes are noted, a manual differential will be performed. Immature Gran Absolute 0.05 0.00 - 0.05 x10(3)/[facility] Blood specimen (specimen) 11/12/2015 2:25 PM EDT 11/12/2015 2:46 PM EDT Narrative Resulting Agency Comment Spec In Lab Paola Colbert MD HEMATOLOGY ORDERABL ES [facility] [place] [address] * (ABNORMAL) Hemogram (11/12/2015 2:25 PM EDT) White Blood Cell 10.1(H) 4.0 - 10.0 x10(3)/[facility] Red Blood Cell 4.54(L) 4.63 - 6.08 x10(6)/[facility] Hemoglobin 14.5 13.7 - 17.5 gm/dL [facility] Hematocrit 41.3 40.0 - 51.0 % [facility] Mean Cell Volume 91.0 79.0 - 92.0 fL [facility] Mean Cell Hemoglobin 31.9 25.6 - 32.2 pg [facility] Mean Cell Hemoglobin Concentration 35.1 32.0 - 36.5 gm/dL [facility] Platelet 268 145 - 370 x10(3)/mc L [facility] RDW Standard Deviation 48.1(H) 35.0 - 46.0 fL [facility] RDW coefficient of variation 14.5(H) 10.9 - 14.4 % [facility] Mean Platelet Volume 9.6 9.0 - 12.0 fL [facility] Blood specimen (specimen) 11/12/2015 2:25 PM EDT 11/12/2015 2:46 PM EDT Narrative Resulting Agency Comment Spec In Lab Paola Colbert MD HEMATOLOGY ORDERABL ES Performing Organization Address [facility] Co de Phone Number [facility] [place] [address] * Blue Tube HOLD (11/12/2015 2:25 PM EDT) Blue Hold Sample in lab. [facility] Blood specimen (specimen) 11/12/2015 2:25 PM EDT 11/12/2015 2:46 PM EDT Paola Colbert MD HEMATOLOGY ORDERABL ES Performing Organization Address [facility] Co de Phone Number [facility] [place] [address] * (ABNORMAL) BMP w/fasting Glucose (11/12/2015 2:25 PM EDT) Glucose Fasting 202(H) 65 - 99 mg/dL [facility] [...] of Diabetes Mellitus, Position Statement from the [place] [employer]. ??Diabetes Care, Volume 33, Supplement 1, Jul 2009 Blood Urea Nitrogen 20 10 - 20 mg/dL [facility] Creatinine 2.02(H) 0.80 - 1.50 mg/dL [facility] Comment: Please note that the pediatric reference intervals supplied above were not validated at [facility]. Results from pediatric patients should be interpreted in conjunction to the patient's age, height and muscle mass. Sodium 137 135 - 145 mmol/L [facility] Potassium 4.0 3.5 - 5.0 mmol/L [facility] Comment: Please note: ??Patients with WBC >100,000 may have falsely elevated Potassium levels. ??For accurate Potassium quantification in these patients send serum separator tube (gold top) for subsequent determinations. ??Contact the Clinical Chemistry Laboratory if there are any questions. Chloride 99 98 - 107 mmol/L [facility] Carbon Dioxide 20(L) 22 - 31 mmol/L [facility] Anion Gap 18(H) 5 - 15 mmol/L [facility] Calcium 9.3 8.5 - 10.5 mg/dL [facility] Est Glomerular Filtration Rate 33(L) >=60 [facility] Comment: This estimated [...] the following links into your internet browser. [email or web address] Blood specimen (specimen) 11/12/2015 2:25 PM EDT 11/12/2015 2:46 PM EDT Narrative Resulting Agency Comment Spec In Lab Paola Colbert MD CHEMISTRY ORDERABLE S Performing Organization Address [facility] de Phone Number [facility] [place] [address] * (ABNORMAL) Blood culture (11/12/2015 2:25 PM EDT) Blood Culture Enterococcus faecalis isolated Susceptibilities previously reported (A) [facility] Gram Stain Aerobic Growth detected in aerobic bottle. Gram Positive Cocci in pairs seen (A) [facility] Gram Stain Anaerobic Growth detected in anaerobic bottle. Gram Positive Cocci in pairs seen (A) [facility] Organism Gram Positive Cocci in pairs(A) [facility] Blood specimen (specimen) STRUCTURE OF RIGHT FOREARM / Unknown 11/12/2015 2:25 PM EDT 11/12/2015 2:53 PM EDT Comment:#1 Narrative Resulting Agency Comment Spec In Lab Paola Colbert MD MICROBIOLOGY - BLOO D ORDERABLES Performing Organization Address [facility] Co de Phone Number [facility] [place] [address] * (ABNORMAL) Blood culture (11/12/2015 2:25 PM EDT) Blood Culture Enterococcus faecalis isolated Isolate saved. If future testing is required, contact the [facility]. (A) [facility] Gram Stain Bottle Growth detected in aerobic and anaerobic bottles. Gram Positive Cocci in pairs seen (A) [facility] Organism Enterococcus faecalis(A) [facility] Organism Gram Positive Cocci in pairs(A) [facility] Blood specimen (specimen) ANTECUBITAL [...] Colbert MD MICROBIOLOGY - BLOO D ORDERABLES [facility] [place] [address] documented in this encounter Visit Diagnoses Diagnosis [...] 400 mg, Intravenous, ONCE, 1 dose, On Thu11/12/15 at 1536, Administer over 60 Minutes, Indication [...] dose on Thu11/16/15 at 1500, Until Discontinued, STAT, Indication for (Active or Suspected): Bacteremia/Sepsis, Restricted Antibiotic: Please indicate the most appropriate choice: ID Approval by Selena Fatima Given 11/16/2015 3:05 PM EDT 570 mg 122 .8 mL/hr DILTiazem (DILTIAZEM CD) ER capsule 120 [...] level., Routine, Indication for (Active or Suspected): Bacteremia/Sepsis Given 11/13/2015 12:35 AM EDT 2,000 mg [...] Malina Edmonds, JADEN)0609 (Given - Provider: Malina Edmonds, JADEN)1211 (Given - Provider: Ethel Benitez RN) ampicillin 2g vial attach to sodium chloride 0.9% 100 mL Mini-Bag Plus (CANCELED) 2,000 mg (2 g), Intravenous, EVERY 4 HOURS SCHEDULED, First dose (after last modification) on Thu11/14/15 at 1600, Until Discontinued, Administer over 15 Minutes, Indication for (Active or Suspected): Urinary Tract/Pyelonephritis 1634 (Given - Provider: Ethel Benitez RN)2025 (Given - Provider: Brenda Masterson, JADEN) 0005 (Given - Provider: Brenda Masterson RN)0434 (Given - Provider: Brenda Masterson RN)0808 (Given - Provider: Keyana Hedrick, JADEN)1202 (Given - Provider: Keyana Hedrick, JADEN)1553 (Given - Provider: Keyana Hedirck, RN)203 (Given - Provider: Brenda M Potter, RN)2354 (Given - Provider: rBenda Masterson RN) 0424 (Given - Provider: Brenda Masterson RN)0955 (Given - Provider: Angela Rendon, JADEN)1325 (Given - Provider: Angela Rendon RN) calciTRIol (ROCALTROL) capsule 0.5 mcg (CANCELED) 0.5 mcg, Oral, 2 TIMES DAILY, First dose on Thu11/15/15 at 0900, Until Discontinued, Routine 1041 (Given - Provider: Keyana Hedrick RN)2059 (Given - Provider: Brenda Masterson RN) 1029 (Given - Provider: Angela Rendon, JADEN) calcium carbonate (TUMS) chewable tablet 500 mg (COMPLETED) 500 mg, Oral, ONCE, 1 dose, On Thu11/14/15 at 2145, Routine 2123 (Given - Provider: Brenda Masterson RN) calcium carbonate (TUMS) chewable tablet 500 mg (COMPLETED) 500 mg, Oral, ONCE, 1 dose, On Thu11/15/15 at 2100, Routine 204 (Given - Provider: Brenda Masterson RN) clopidogrel [...] dose on Thu11/16/15 at 1500, Until Discontinued, STAT, Indication for (Active or Suspected): Bacteremia/Sepsis, Restricted Antibiotic: Please indicate the most appropriate choice: ID Approval by Selena Fatima [id number] (Given - Provider: Angela Rendon RN) DILTiazem (DILTIAZEM CD) ER capsule 120 mg (CANCELED) 120 mg, Oral, DAILY, First dose on Thu11/13/15 at 0900, Until Discontinued, DO NOT CRUSH OR OPEN, Routine 0820 (Given - Provider: Ethel Benitez, RN) 0836 (Given - Provider: Keyana Hedrick, RN) 1032 (Given - Provider: Angela Rendon, JADEN) heparin (porcine) subcutaneous injection 5,000 Units (CANCELED) 5,000 Units, Subcutaneous, EVERY 8 HOURS SCHEDULED, First dose on Thu11/13/15 at 0600, Until Discontinued, Routine 0018 (Given - Provider: Malina Edmonds RN)0610 (Given - Provider: Malina Edmonds, JADEN)1424 (Given - Provider: Ethel Benitez RN)2123 (Given - Provider: Brenda Masterson, JADEN) 0517 (Given - Provider: Brenda Masterson, JADEN)1459 (Given - Provider: Keyana Hedrick, JADEN)2101 (Given - Provider: Brenda Masterson, JADEN) 0549 (Given - Provider: Brenda Masterson, JADEN)1400 (Not Given - Provider: Angela Rendon, JADEN [...] not met)1717 (Given - Provider: Ethel Benitez RN)202 (Given - Provider: Brenda Masterson RN) 0024 (Given - Provider: Brenda Masterson RN)0400 (Not Given - Provider: Brenda Masterson RN - Reason: Order parameters not met)0800 (Not Given - Provider: Keyana Hderick RN - Reason: Order parameters not met)1203 (Given - Provider: Keyana Hedrick RN)1657 (Given - Provider: Bernarda Pedroza RN)2032 (Given - Provider: Brenda Masterson RN)2356 (Given - Provider: Brenda Masterson RN) 0400 (Not Given - Provider: Brenda Masterson RN - Reason: Order parameters not met)0821 (Given - Provider: Angela Rendon RN)1150 (Given - Provider: Angela Rendon RN)1634 (Given - Provider: Angela Rendon RN) levothyroxine [...] Routine 0820 (Given - Provider: Ethel Benitez RN)2023 (Given - Provider: Brenda Masterson RN) magnesium oxide (MAG-OX) tablet 800 mg (CANCELED) 800 mg, Oral, 3 TIMES DAILY, First dose (after last modification) on Thu11/15/15 at 0900, Until Discontinued, Routine 0935 (Given - Provider: Ethel Benitez RN)1459 (Given - Provider: Keyana Hedrick RN)2100 (Given - Provider: Brenda Masterson RN) 1032 (Given - Provider: Angela Rendon RN)1634 (Given - Provider: Angela Rendon RN) mycophenolate (CELLCEPT) capsule 500 mg (CANCELED) 500 mg, Oral, 2 TIMES DAILY, First dose on Thu11/12/15 at 2100, Until Discontinued, DO NOT CRUSH OR OPEN, Routine 0820 (Given - Provider: Ethel Benitez RN)2022 (Given - Provider: Brenda Masterson RN) 08 (Given - Provider: Keyana Hedrick RN)2099 (Given - Provider: Brenda Masterson RN) 103 (Given - Provider: Angela Rendon RN) pantoprazole (PROTONIX) tablet 40 mg (CANCELED) 40 mg, Oral, DAILY, First dose on Thu11/15/15 at 1800, Until Discontinued, DO NOT CRUSH OR OPEN 1810 (Given - Provider: Keyana Hedrick RN) pantoprazole (PROTONIX) tablet 40 mg (CANCELED) 40 mg, Oral, 2 TIMES DAILY, First dose (after last modification) on Thu11/15/15 at 2100, Until Discontinued, DO NOT CRUSH OR OPEN 2041 (Given - Provider: Brenda Masterson RN) 103 (Given - Provider: Anglea Rendon RN) polyethylene glycol (MIRALAX) packet 17 g (CANCELED) [...] RN) 0936 (Given - Provider: Ethel Benitez RN)145 (Given - Provider: Keyana Hedrick RN)2057 (Given - Provider: Brenda Masterson RN) 1149 (Given - Provider: Angela Rendon RN)1635 (Given - Provider: Angela Rendon RN) potassium phosphate (monobasic) (K-PHOS) tablet 1,000 [...] on Thu11/13/15 at 0200, Until Discontinued, Routine 0821 (Given - Provider: Ethel Benitez RN)2023 (Given [...] Discontinued, Routine 2022 (Given - Provider: Brenda Masterson, RN) 2058 (Given - Provider: Brenda Masterson, JADEN) tacrolimus (PROGRAF) capsule 3 mg (CANCELED) 3 mg, Oral, EVERY MORNING, First dose on Thu11/13/15 at 0900, Until Discontinued, Routine 0929 (Given - Provider: Ethel Benitez RN) 0835 (Given - Provider: Keyana Hedrick, JADEN) 1030 (Given - Provider: Angela Rendon, JADEN) tamsulosin [...] RN) 0023 (New Bag - Provider: Brenda Masterson, JADEN) PRN Medication Order 11/14/2015 11/15/2015 11/16/2015 calcium carbonate (TUMS) chewable tablet 500 mg (CANCELED) 500 mg, Oral, DAILY PRN, Starting on Thu11/15/15 at 1738, Until Thu11/15/15 at 2034, Heartburn, Routine 1811 (Given - Provider: Alessandra Hedrick RN) Linked Groups Order Group 1: POCT [...] schedule. documented in this encounter Care Teams Film Cutter Relationship Specialty Start Date End Date Albania Denis DO [address] [place] [address] [address] [place] [address] PCP - General 09/03/12 03/17/22 Ruchi Valles RN Nurse Clinic Transplant Surgery 07/30/15 documented as of this encounter
--- OUTSIDE RECORDS SUMMARY | 2024-04-04 14:14 | XMS_ITS | Encounter Summary ---
Author Organization [facility] [place] [address] Care Team Providers Care Geometry Teacher Name Role Phone Urbano Denis DO Primary Care Provider Encounter Details Date Type Department Care Team (Late st Contact Info) Description 11/21/2015 Telephone [place] [phone] Samia Escalante, RN Social History Tobacco Use [...] additional questions or concerns. Samia Escalante, RN [facility] Solid Organ Transplant [phone] (Pager: [phone]) documented in this encounter Plan of Treatment Upcoming Encounters Date Type Department Care Team (Late st Contact Info) Description 04/08/2024 1:40 PM EDT Office Visit Cardiology at [address] [phone] Jay Urbna MD [facility] [address] 04/15/2024 10:00 AM EDT Hospital Encounter Non[place] [phone] Arrived documented as of this encounter Visit Diagnoses Not on filedocumented in this encounter Care Teams Geometry Teacher Relationship Specialty Start Date End Date Urbano Denis DO [address] [place] [address] PCP - General 09/03/12 03/17/22 Ruchi Valles RN Nurse Clinic Transplant Surgery 07/30/15 documented as of this encounter
--- OUTSIDE RECORDS SUMMARY | 2024-04-04 14:14 | XMS_ITS | Encounter Summary ---
Author Organization [facility] [place] [address] Care Team Providers Care Air Conditioning Specialist Name Role Phone Urbano Denis DO Primary Care Provider Encounter Details Date Type Department Care Team (Late st Contact Info) Description 11/12/2015 Telephone [place] [phone] Samia Escalante, RN Social History Tobacco Use [...] additional questions or concerns. Samia Escalante, RN [facility] [place] Solid Organ Transplant [phone] (Pager: [phone]) documented in this encounter Plan of Treatment Upcoming Encounters Date Type Department Care Team (Late st Contact Info) Description 04/08/2024 1:40 PM EDT Office Visit Cardiology at [address] [phone] Jay Urban MD [facility] [place] [address] 04/15/2024 10:00 AM EDT Hospital Encounter Non-[place] [phone] Arrived documented as of this encounter Visit Diagnoses Not on filedocumented in this encounter Care Teams Air Conditioning Specialist Relationship Specialty Start Date End Date Urbano Denis DO [address] [place] [address] [address] PCP - General 09/03/12 03/17/22 Hai STANLEY,Ruchi Nurse Clinic Transplant Surgery 07/30/15 documented as of this encounter
--- OUTSIDE RECORDS SUMMARY | 2024-04-04 14:14 | XMS_ITS | Encounter Summary ---
Author Organization [facility] [place] [address] Care Team Providers Care Land Lease Information Clerk Name Role Phone Adeel Urbano KIRBY Primary Care Provider Encounter Details Date Type Department Care Team (Late st Contact Info) Description 11/12/2015 Telephone [place] [phone] Samia Escalante, RN Social History Tobacco Use [...] message asking for call-back. Samia Escalante, JADEN [facility] Solid Organ Transplant [phone] (Pager: [phone]) documented in this encounter Plan of Treatment Upcoming Encounters Date Type Department Care Team (Late st Contact Info) Description 04/08/2024 1:40 PM EDT Office Visit Cardiology at [address] [phone] Jay Urban MD [facility] [place] [address] 04/15/2024 10:00 AM EDT Hospital Encounter Non-Invasive [place] [phone] Arrived documented as of this encounter Visit Diagnoses Not on filedocumented in this encounter Care Teams Land Lease Information Clerk Relationship Specialty Start Date End Date Urbano Denis DO [address] [address] PCP - General 09/03/12 03/17/22 Ruchi Valles RN Nurse Clinic Transplant Surgery 07/30/15 documented as of this encounter
--- OUTSIDE RECORDS SUMMARY | 2024-04-04 14:14 | XMS_ITS | Encounter Summary ---
Author Organization [facility] [place] [address] Care Team Providers Care Market Research Analyst Name Role Phone Urbano Denis DO Primary Care Provider [phone] Encounter Details Date Type Department Care Team (Late st Contact Info) Description 11/20/2015 Telephone Solid [place] [phone] Samia Escalante, RN Social History Tobacco Use [...] call with additional concerns. Samia Escalante RN [facility] [place] [phone] (Pager: [phone]) documented in this encounter Plan of Treatment Upcoming Encounters Date Type Department Care Team (Late st Contact Info) Description 04/08/2024 1:40 PM EDT Office Visit Cardiology at [address] [phone] Jay Urban MD [facility] [place] [address] 04/15/2024 10:00 AM EDT Hospital Encounter Non-[place] [phone] Arrived documented as of this encounter Visit Diagnoses Not on filedocumented in this encounter Care Teams Market Research Analyst Relationship Specialty Start Date End Date Urbano Denis DO [address] [place] [address] [address] [facility] [address] [place] [address] PCP - General 09/03/12 03/17/22 Ruchi Valles RN Nurse Clinic Transplant Surgery 07/30/15 documented as of this encounter
--- OUTSIDE RECORDS SUMMARY | 2024-04-04 14:14 | XMS_ITS | Encounter Summary ---
Author Organization [facility] [place] [address] Care Team Providers Care Oracle Analyst Name Role Phone Urbano Denis DO Primary Care Provider Encounter Details Date Type Department Care Team (Latest Contact Info) Description 11/08/2015 9:00 AM EDT Laboratory Appointment Lab [address] [place] [phone] Kidney replaced by transplant Social [...] PM EDT Office Visit Cardiology at [address] [phone] Jay Urban MD [facility] [place] [address] 04/15/2024 10:00 AM EDT Hospital Encounter Non[place] [phone] Arrived documented as of this [...] DNA isolated from urine was performed using Tempered Mind BKV(ASR) reagents and the [employer] HealthQx 7500 Fast Real-Time PCR System. In addition, [...] allowed to perform high complexity clinical testing. [facility] Comment: [VERIFIED DATE]11.20.15 Verified By:Xiomy Gupta (Electronic Signature) Urine specimen (specimen) 11/08/2015 8:55 AM EDT 11/08/2015 10:49 AM EDT Narrative Resulting Agency Comment Spec In Lab Tal Eagle MD [facility]OLOGY [facility] [place] [address] * (ABNORMAL) Urine culture (11/08/2015 8:55 AM EDT) Urine Culture 10,000-49,000 cfu/ml Enterococcus species(A) [facility] Organism Enterococcus species(A) [facility] Urine specimen (specimen) 11/08/2015 8:55 [...] METHOD Sensitive Tal Eagle MD MICROBIOLOGY - GE NERAL ORDERABLES Performing Organization Address [facility]/ZIP Co de Phone Number [facility] [place] [address] * Protein/Creatinine Ratio, urine (11/08/2015 8:55 AM EDT) Creatinine, Urine 112 mg/dL [facility] Protein, Urine 8 0 - 12 mg/dL [facility] Protein / Creatinine Ratio, Urine <0.1 ratio [facility] Urine specimen (specimen) 11/08/2015 8:55 AM EDT 11/08/2015 9:03 AM EDT Narrative Resulting Agency Comment Spec In Lab Tal Eagle MD URINE ORDERABLES Performing Organization Address [facility] Co de Phone Number [facility] [place] [address] * (ABNORMAL) Urinalysis with reflex Culture (11/08/2015 [...] [facility] Leukocytes, Urine Dipstick Trace(A) Negative [facility] Appearance, Urine Dipstick Clear Clear [facility] Specific [place] Urine Automated 1.016 1.002 - 1.030 [facility] Color, Urine Dipstick Yellow Yellow [facility] RBC, Urine 1 0 - 3 /HPF [facility] WBC, Urine 17(H) 0 - 3 /HPF [facility] Reflex to Culture Yes [facility] Urine specimen (specimen) 11/08/2015 8:55 AM EDT 11/08/2015 9:03 AM EDT Narrative Resulting Agency Comment Spec In Lab Tal Eagle MD URINE ORDERABLES Performing Organization Address City/State/[facility] Co de Phone Number [facility] [place] [address] * Differential, Automated (11/08/2015 8:49 AM EDT) Neutrophil % 70.9 % [facility] Neutrophil Absolute 5.70 1.50 - 6.30 x10(3)/[facility] Lymph % 18.7 % [facility] Lymphocytes Abs 1.5 1.0 - 3.6 x10(3)/[facility] Monocyte % 5.6 % [facility] Monocyte Abs 0.4 0.2 - 1.0 x10(3)/[facility] Eos % 2.9 % [facility] Eosinophils Abs 0.2 0.0 - 0.5 x10(3)/[facility] Basophil % 1.4 % [facility] Baso Absolute 0.1 0.0 - 0.2 x10(3)/[facility] Immature Gran % 0.50 % [facility] Comment: Immature granulocytes(IG's)percentage and absolute count will include metamyelocytes, myelocytes, and promyelocytes. Blood smears from CBCs yielding IG's will be scanned manually for concordance. If this scan disagrees with the automated IG or if promyelocytes are noted, a manual differential will be performed. Immature Gran Absolute 0.04 0.00 - 0.05 x10(3)/mcL [facility] Blood specimen (specimen) 11/08/2015 8:49 AM EDT 11/08/2015 8:53 AM EDT Narrative Resulting Agency Comment Spec In Lab Tal Eagle MD HEMATOLOGY ORDERA BLES [facility] [place] [address] * (ABNORMAL) Hemogram (11/08/2015 8:49 AM EDT) White Blood Cell 8.0 4.0 - 10.0 x10(3)/mc L [facility] Red Blood Cell 4.42(L) 4.63 - 6.08 x10(6)/mc L [facility] Hemoglobin 14.0 13.7 - 17.5 gm/dL [facility] Hematocrit 41.1 40.0 - 51.0 % [facility] Mean Cell Volume 93.0(H) 79.0 - 92.0 fL [facility] Mean Cell Hemoglobin 31.7 25.6 - 32.2 pg [facility] Mean Cell Hemoglobin Concentration 34.1 32.0 - 36.5 gm/dL [facility] Platelet 279 145 - 370 x10(3)/mc L [facility] RDW Standard Deviation 50.8(H) 35.0 - 46.0 fL [facility] RDW coefficient of variation 14.9(H) 10.9 - 14.4 % [facility] Mean Platelet Volume 9.3 9.0 - 12.0 fL [facility] Blood specimen (specimen) 11/08/2015 8:49 AM EDT 11/08/2015 8:53 AM EDT Narrative Resulting Agency Comment Spec In Lab Tal Eagle MD HEMATOLOGY ORDERA BLES [facility] [place] [address] * (ABNORMAL) Comprehensive metabolic panel (non-fasting) (11/08/2015 8:49 AM EDT) Glucose 162 65 - 199 mg/dL [facility] Comment:Diabetes: >=200 mg/d L plus symptoms Blood Urea Nitrogen 23(H) 10 - 20 mg/dL [facility] Creatinine 1.89(H) 0.80 - 1.50 mg/dL [facility] Comment: Please note that the pediatric reference intervals supplied above were not validated at [facility]. Results from pediatric patients should be interpreted in conjunction to the patient's age, height and muscle mass. Sodium 141 135 - 145 mmol/L [facility] Potassium 4.4 3.5 - 5.0 mmol/L [facility] Comment: Please note: ??Patients with WBC >100,000 may have falsely elevated Potassium levels. ??For accurate Potassium quantification in these patients send serum separator tube (gold top) for subsequent determinations. ??Contact the Clinical Chemistry Laboratory if there are any questions. Chloride 104 98 - 107 mmol/L [facility] Carbon Dioxide 23 22 - 31 mmol/L [facility] Anion Gap 14 5 - 15 mmol/L [facility] Calcium 9.1 8.5 - 10.5 mg/dL [facility] Protein, Total 7.2 6.1 - 8.0 gm/dL [facility] Albumin 4.2 3.2 - 5.2 gm/dL [facility] Aspartate Aminotransferase 22 0 - 39 unit/L [facility] Alanine Aminotransferase 25 0 - 55 unit/L [facility] Alkaline Phosphatase 83 40 - 120 unit/L [facility] Bilirubin, Total 0.7 0.2 - 1.3 mg/dL [facility] Bilirubin, Direct <0.1 0.0 - 0.3 mg/dL [facility] Est Glomerular Filtration Rate 36(L) >=60 [facility] Comment: This [...] the following links into your internet browser. [email or web address] Blood specimen (specimen) 11/08/2015 8:49 AM EDT 11/08/2015 8:53 AM EDT Narrative Resulting Agency Comment Spec In Lab Tal Eagle MD CHEMISTRY ORDERAB LES [facility] [place] [address] * Magnesium (11/08/2015 8:49 AM EDT) Magnesium 0.69 0.69 - 1.07 mmol/L [facility] Blood specimen (specimen) 11/08/2015 8:49 AM EDT 11/08/2015 8:53 AM EDT Narrative Resulting Agency Comment Spec In Lab Tal Eagle MD CHEMISTRY ORDERAB LES [facility] [place] [address] * Phosphorus (11/08/2015 8:49 AM EDT) Phosphorus 2.7 2.5 - 4.5 mg/dL [facility] Blood specimen (specimen) 11/08/2015 8:49 AM EDT 11/08/2015 8:53 AM EDT Narrative Resulting Agency Comment Spec In Lab Tal Eagle MD CHEMISTRY ORDERAB LES Performing Organization Address [facility] Co de Phone Number [facility] [place] [address] * (ABNORMAL) Uric acid (11/08/2015 8:49 AM EDT) Uric Acid 9.8(H) 3.5 - 8.5 mg/dL [facility] Blood specimen (specimen) 11/08/2015 8:49 AM EDT 11/08/2015 8:53 AM EDT Narrative Resulting Agency Comment Spec In Lab Tal Eagle MD CHEMISTRY ORDERAB LES Performing Organization Address [facility] Co de Phone Number [facility] [place] [address] * Tacrolimus level (11/08/2015 8:49 AM EDT) Tacrolimus 12.7 ng/mL [facility] Comment:Trough therapeutic: 5-15 ng/mL Blood specimen (specimen) 11/08/2015 8:49 AM EDT 11/08/2015 11:06 AM EDT Narrative Resulting Agency Comment Spec In Lab Tal Eagle MD CHEMISTRY ORDERAB LES Performing Organization Address [facility] Co de Phone Number [facility] [place] [address] * Reticulocyte Count (11/08/2015 8:49 AM EDT) Reticulocyte % 1.8 0.5 - 2.4 % [facility] Retic Abs # 0.080 0.027 - 0.095 x10(6)/mcL [facility] Immature Retic% 8.8 2.3 - 15.9 % [facility] Reticulated Hgb 33.8 28.5 - 38.9 pg [facility] Immature Plt % 1.5 0.0 - 7.4 % [facility] Blood specimen (specimen) 11/08/2015 8:49 AM EDT 11/08/2015 8:53 AM EDT Narrative Resulting Agency Comment Spec In Lab Tal Eagle MD HEMATOLOGY ORDERA BLES Performing Organization Address City/[facility] Co de Phone Number [facility] [place] [address] * Cholesterol, total (11/08/2015 8:49 AM EDT) Cholesterol, Total 187 <=199 mg/dL [facility] Comment: Recommendations of the NCEP [...] ORDERAB LES Performing Organization Address [facility] Co de Phone Number [facility] [place] [address] documented in this encounter Visit Diagnoses Diagnosis Kidney replaced by transplant documented in this encounter Care Teams Oracle Analyst Relationship Specialty Start Date End Date Urbano Denis DO [address] [place] [address] PCP - General 09/03/12 03/17/22 Ruchi Valles RN Nurse Clinic Transplant Surgery 07/30/15 documented as of this encounter
--- OUTSIDE RECORDS SUMMARY | 2024-04-04 14:15 | XMS_ITS | Encounter Summary ---
Author Organization Formerly [facility] [place] [address] Care Team Providers Care Cuff Turner Machine Operator Name Role Phone Urbano Denis DO Primary Care Provider Encounter Details Date Type Department Care Team (Latest Contact Info) Description 10/12/2015 9:00 AM EDT Laboratory Appointment Lab [address] [place] [address] H/O kidney transplant; Kidney replaced by transplant [...] PM EDT Office Visit Cardiology at [address] [phone] Jay Urban MD [facility] [place] [address] 04/15/2024 10:00 AM EDT Hospital Encounter Non-[place] [address] Arrived documented as of this [...] AM EDT) BKV Urine Result Not Detected [facility] BKV Urine Interp BK Virus [...] DNA isolated from urine was performed using [employer] BKV(ASR) reagents and the [employer] Hunch 7500 Fast Real-Time PCR System. In addition, the PCR product sequence is confirmed using physical properties (melt curve analysis). This test was developed and its performance determined by the [facility] Molecular Pathology Laboratory. It has not been cleared or approved by the U.S. Food and Drug Administration. This test is used for clinical purposes and should not be considered investigational or for research purposes. The Molecular Pathology Laboratory is certified by the Clinical Laboratory Improvement Act of 1988 and as such is allowed to perform high complexity clinical testing. [facility] Comment: [VERIFIED DATE]10.18.15 Verified By:Xiomy Gupta (Electronic Signature) Urine specimen (specimen) 10/12/2015 9:50 AM EDT 10/12/2015 10:41 AM EDT Narrative Resulting Agency Comment Spec In Lab Que Amaro MD HEMATOLOGY ORD MILAGROS Performing Organization Address City/[facility]/ZIP Co de Phone Number [facility] [place] [address] * Gold Tube HOLD (10/12/2015 9:45 AM EDT) Gold Hold Sample in lab. [facility] Blood specimen (specimen) Venous Draw / Unknown 10/12/2015 9:45 AM EDT 10/12/2015 10:09 AM EDT Que Amaro MD CHEMISTRY ORDBhargav JENNINGS Performing Organization Address City/[facility]/ZIP Co de Phone Number [facility] [place] [address] * Differential, Automated (10/12/2015 9:45 AM EDT) Neutrophil % 61.7 % [facility] Neutrophil Absolute 4.69 1.50 - 6.30 x10(3)/mcL [facility] Lymph % 29.2 % [facility] Lymphocytes Abs 2.2 1.0 - 3.6 x10(3)/[facility] LABORATORY Monocyte % 3.7 % [facility] Monocyte Abs 0.3 0.2 - 1.0 x10(3)/[facility] LABORAT[facility] Eos % 3.8 % [facility] Eosinophils Abs 0.3 0.0 - 0.5 x10(3)/[facility] LABORATORY Basophil % 1.2 % [facility] Baso Absolute 0.1 0.0 - 0.2 x10(3)/[facility] LABORATORY Immature Gran % 0.40 % [facility] Comment: Immature granulocytes(IG's)percentage and absolute count will include metamyelocytes, myelocytes, and promyelocytes. Blood smears from CBCs yielding IG's will be scanned manually for concordance. If this scan disagrees with the automated IG or if promyelocytes are noted, a manual differential will be performed. Immature Gran Absolute 0.03 0.00 - 0.05 x10(3)/[facility] Blood specimen (specimen) 10/12/2015 9:45 AM EDT 10/12/2015 9:57 AM EDT Narrative Resulting Agency Comment Spec In Lab Que Amaro MD HEMATOLOGY ORD ERABLES [facility] [place] [address] * (ABNORMAL) Hemogram (10/12/2015 9:45 AM EDT) White Blood Cell 7.6 4.0 - 10.0 x10(3)/ L [facility] Red Blood Cell 4.08(L) 4.63 - 6.08 x10(6)/ L [facility] Hemoglobin 13.0(L) 13.7 - 17.5 gm/dL [facility] Hematocrit 37.7(L) 40.0 - 51.0 % [facility] Mean Cell Volume 92.4(H) 79.0 - 92.0 fL [facility] Mean Cell Hemoglobin 31.9 25.6 - 32.2 pg [facility] Mean Cell Hemoglobin Concentration 34.5 32.0 - 36.5 gm/dL [facility] Platelet 251 145 - 370 x10(3)/mc L [facility] RDW Standard Deviation 52.6(H) 35.0 - 46.0 fL [facility] RDW coefficient of variation 15.7(H) 10.9 - 14.4 % [facility] Mean Platelet Volume 9.1 9.0 - 12.0 fL [facility] Blood specimen (specimen) 10/12/2015 9:45 AM EDT 10/12/2015 9:57 AM EDT Narrative Resulting Agency Comment Spec In Lab Que Amaro MD HEMATOLOGY ORD ERABLES [facility] [place] [address] * (ABNORMAL) Comprehensive metabolic panel (non-fasting) (10/12/2015 9:45 AM EDT) Glucose 134 65 - 199 mg/dL [facility] Comment:Diabetes: >=200 mg/d L plus symptoms Blood Urea Nitrogen 19 10 - 20 mg/dL [facility] Creatinine 1.47 0.80 - 1.50 mg/dL [facility] Comment: Please note that the pediatric reference intervals supplied above were not validated at [facility]. Results from pediatric patients should be interpreted in conjunction to the patient's age, height and muscle mass. Sodium 137 135 - 145 mmol/L [facility] Potassium 3.6 3.5 - 5.0 mmol/L [facility] Comment: Please note: ??Patients with WBC >100,000 may have falsely elevated Potassium levels. ??For accurate Potassium quantification in these patients send serum separator tube (gold top) for subsequent determinations. ??Contact the Clinical Chemistry Laboratory if there are any questions. Chloride 99 98 - 107 mmol/L [facility] Carbon Dioxide 25 22 - 31 mmol/L [facility] Anion Gap 13 5 - 15 mmol/L [facility] Calcium 9.3 8.5 - 10.5 mg/dL [facility] Protein, Total 7.0 6.1 - 8.0 gm/dL [facility] Albumin 3.9 3.2 - 5.2 gm/dL [facility] Aspartate Aminotransferase 18 0 - 39 unit/L [facility] Alanine Aminotransferase 27 0 - 55 unit/L [facility] Alkaline Phosphatase 92 40 - 120 unit/L [facility] Bilirubin, Total 0.8 0.2 - 1.3 mg/dL [facility] Bilirubin, Direct 0.1 0.0 - 0.3 mg/dL [facility] Est Glomerular Filtration Rate 48(L) >=60 [facility] Comment: This [...] the following links into your internet browser. [email or web address]/DHnkdep [email or web address]/DHMCnkf Blood specimen (specimen) 10/12/2015 9:45 AM EDT 10/12/2015 9:57 AM EDT Narrative Resulting Agency Comment Spec In Lab Que Amaro MD CHEMISTRY ORDBhargav JENNINGS [facility] Organization Address City/State/ZIP Co de Phone Number [facility] [place] [address] * Tacrolimus level (10/12/2015 9:45 AM EDT) Tacrolimus 5.9 ng/mL [facility] Comment:Trough therapeutic: 5-15 ng/mL Blood specimen (specimen) 10/12/2015 9:45 AM EDT 10/12/2015 11:13 AM EDT Narrative Resulting Agency Comment Spec In Lab Que Amaro MD CHEMISTRY ORDBhargav JENNINGS Performing Organization Address [facility] de Phone Number [facility] [place] [address] * (ABNORMAL) Reticulocyte Count (10/12/2015 9:45 AM EDT) Pathologist [facility] Reticulocyte % 3.1(H) 0.5 - 2.4 % [facility] Retic Abs # 0.130(H) 0.027 - 0.095 x10(6)/mc L [facility] Immature Retic% 15.1 2.3 - 15.9 % [facility] Reticulated Hgb 34.9 28.5 - 38.9 pg [facility] Immature Plt % 1.0 0.0 - 7.4 % [facility] Blood specimen (specimen) 10/12/2015 9:45 AM EDT 10/12/2015 9:57 AM EDT Narrative Resulting Agency Comment Spec In Lab Que Amaro MD HEMATOLOGY ORD ERABLES Performing Organization Address [facility] de Phone Number [facility] [place] [address] * Uric acid (10/12/2015 9:45 AM EDT) Pathologist [facility] Uric Acid 6.3 3.5 - 8.5 mg/dL [facility] Blood specimen (specimen) 10/12/2015 9:45 AM EDT 10/12/2015 9:57 AM EDT Narrative Resulting Agency Comment Spec In Lab Que Amaro MD CHEMISTRY ROCHELLE JENNINGS Performing Organization Address City/[facility]/ZIP Co de Phone Number [facility] [place] [address] * (ABNORMAL) Phosphorus (10/12/2015 9:45 AM EDT) Phosphorus 2.4(L) 2.5 - 4.5 mg/dL [facility] Blood specimen (specimen) 10/12/2015 9:45 AM EDT 10/12/2015 9:57 AM EDT Narrative Resulting Agency Comment Spec In Lab Que JENNINGS Performing Organization Address [facility] Co de Phone Number [facility] [address] * (ABNORMAL) Magnesium (10/12/2015 9:45 AM EDT) Magnesium 0.54(L) 0.69 - 1.07 mmol/L [facility] Blood specimen (specimen) 10/12/2015 9:45 AM EDT 10/12/2015 9:57 AM EDT Narrative Resulting Agency Comment Spec In Lab Que Amaro MD CHEMISTRY ROCHELLE JENNINGS Performing Organization Address [facility] Co de Phone Number [facility] [place] [address] * (ABNORMAL) Cholesterol, total (10/12/2015 9:45 AM EDT) Cholesterol, Total 211(H) <=199 mg/dL [facility] Comment: Recommendations of the NCEP Adult Treatment Panel for the following risk cutoff thresholds for the [place] population: Desirable: <200 mg/dL Borderline High: 200-239 mg/dL High: > or = 240 mg/dL Blood specimen (specimen) 10/12/2015 9:45 AM EDT 10/12/2015 9:57 AM EDT Narrative Resulting Agency Comment Spec In Lab Que Amaro MD CHEMISTRY ROCHELLE JENNINGS [facility] [address] documented in this encounter Visit Diagnoses Diagnosis H/O kidney transplant Kidney replaced by transplant Kidney replaced by transplant documented in this encounter Care Teams Cuff Turner Machine Operator Relationship Specialty Start Date End Date Urbano Denis DO [address] [place] [address] PCP - General 09/03/12 03/17/22 Ruchi Valles RN Nurse Clinic Transplant Surgery 07/30/15 documented as of this encounter
--- OUTSIDE RECORDS SUMMARY | 2024-04-04 14:15 | XMS_ITS | Encounter Summary ---
[place] [address] Care Team Providers Care Card Brusher Name Role Phone Urbano Denis DO Primary Care Provider Encounter Details Date Type Department Care Team (Latest Contact Info) Description 10/19/2015 7:23 PM EDT - 10/19/2015 11:59 PM EDT Hospital [place] [address] Discharge Disposition: Home Social History Tobacco Use [...] PM EDT Office Visit Cardiology at [address] [phone] Jay Urban MD [facility] [address] 04/15/2024 10:00 AM EDT Hospital Encounter Non-Invasive [place] [address] Arrived documented as of this encounter Procedures Procedure Name Priority Date/Time Associated Diagnosis Comments TACROLIMUS LEVEL Routine 10/19/2015 12:0 5 PM EDT documented in this encounter Results * Tacrolimus level (10/19/2015 12:05 PM EDT) Tacrolimus 7.9 ng/mL [facility] Comment:Trough therapeutic: 5-15 ng/mL Blood specimen (specimen) Venous Draw / Unknown 10/19/2015 12:05 PM EDT 10/22/2015 8:02 AM EDT Narrative Resulting Agency Comment Spec In Lab Tal Eagle MD CHEMISTRY ORDERAB LES [facility] [place] [address] documented in this encounter Visit Diagnoses Not on filedocumented in this encounter Care Teams Card Brusher Relationship Specialty Start Date End Date Urbano Denis DO [address] [place] [address] PCP - General 09/03/12 03/17/22 Ruchi Valles RN Nurse Clinic Transplant Surgery 07/30/15 documented as of this encounter
--- OUTSIDE RECORDS SUMMARY | 2024-04-04 14:15 | XMS_ITS | Encounter Summary ---
Author Organization [facility] [place] [address] Care Team Providers Care Vp Public Relations Name Role Phone AdeelUrbano toscano Primary Care Provider Encounter Details Date Type Department Care Team (Late st Contact Info) Description 10/11/2015 Orders [place] [phone] Tulio Marcelo MD [facility] [address] Hepatitis C virus infection without hepatic coma, [...] PM EDT Office Visit Cardiology at [address] [phone] Jay Urban MD [facility] [place] [address] 04/15/2024 10:00 AM EDT Hospital Encounter Non-[place] [address] Arrived documented as of this encounter Results * Hepatitis C RNA, quantitative, PCR (01/04/2016 1:55 PM EDT) Pathologist [facility] HCV Viral Load 516,252 IU/mL [facility] HCV Viral Load Result: [id number] IU/mL Indication for Study: Hepatitis C Infection Analysis: A quantitiative real time reverse transcriptase PCR assay was performed on extracted viral RNA for the purpose of quantification. Sample: plasma (1 mL minimum volume) Method: Kirsten June TaqMAN 48 HCV Linear Range: 15 IU/mL - 100,000,000IU/mL (95% CI) Note: This assay is being performed in the [facility] Molecular Pathology Laboratory. Gibson Good, Ph.D. Director, Molecular Pathology [facility] Comment: [VERIFIED DATE]01.09.16 Verified By:Fatemeh Garcia (Electronic Signature) Blood specimen (specimen) 01/04/2016 1:55 PM EDT 01/08/2016 8:08 AM EDT Narrative Resulting Agency Comment Spec In Lab Tulio Marcelo MD MOLECULAR ORDERABLE S [facility] [place] [address] * Prothrombin Time (01/04/2016 1:55 PM EDT) Pathologist [facility] Prothrombin Time 13.6 12.0 - 15.0 sec [facility] Comment: An INR <2.0 indicates [...] International Normalization Ratio 1.0 0.9 - 1.1 [facility] Blood specimen (specimen) 01/04/2016 1:55 PM EDT 01/04/2016 2:05 PM EDT Narrative Resulting Agency Comment Spec In Lab Tulio Marcelo MD HEMATOLOGY ORDERABL ES [facility] [address] * (ABNORMAL) Comprehensive metabolic panel (non-fasting) (01/04/2016 1:55 PM EDT) Glucose 104 65 - 199 mg/dL [facility] Comment:Diabetes: >=200 mg/d L plus symptoms Blood Urea Nitrogen 29(H) 10 - 20 mg/dL [facility] Creatinine 2.69(H) 0.80 - 1.50 mg/dL [facility] Comment: Please note that the pediatric reference intervals supplied above were not validated at [facility]. Results from pediatric patients should be interpreted in conjunction to the patient's age, height and muscle mass. Sodium 138 135 - 145 mmol/L [facility] Potassium 4.1 3.5 - 5.0 mmol/L [facility] Comment: Please note: ??Patients with WBC >100,000 may have falsely elevated Potassium levels. ??For accurate Potassium quantification in these patients send serum separator tube (gold top) for subsequent determinations. ??Contact the Clinical Chemistry Laboratory if there are any questions. Chloride 97(L) 98 - 107 mmol/L [facility] Carbon Dioxide 26 22 - 31 mmol/L [facility] Anion Gap 15 5 - 15 mmol/L [facility] Calcium 9.5 8.5 - 10.5 mg/dL [facility] Protein, Total 7.9 6.1 - 8.0 gm/dL [facility] Albumin 4.2 3.2 - 5.2 gm/dL [facility] Aspartate Aminotransferase 21 0 - 39 unit/L [facility] Alanine Aminotransferase 16 0 - 55 unit/L [facility] Alkaline Phosphatase 66 40 - 120 unit/L [facility] Bilirubin, Total 0.9 0.2 - 1.3 mg/dL [facility] Bilirubin, Direct 0.2 0.0 - 0.3 mg/dL [facility] Est Glomerular Filtration Rate 24(L) >=60 [facility] Comment: This estimated [...] the following links into your internet browser. http://Nanoledge/DHnkdep [email or web address]://Nanoledge/DHMCnkf Blood specimen (specimen) 01/04/2016 1:55 PM EDT 01/04/2016 2:05 PM EDT Narrative Resulting Agency Comment Spec In Lab Tulio Marcelo MD CHEMISTRY ORDERABLE S [facility] [place] [phone] documented in this encounter Visit Diagnoses Diagnosis Hepatitis C virus infection without hepatic coma, unspecified chronicity documented in this encounter Care Teams Vp Public Relations Relationship Specialty Start Date End Date Urbano Denis DO [address] [place] [address] PCP - General 09/03/12 03/17/22 Ruchi Valles RN Nurse Clinic Transplant Surgery 07/30/15 documented as of this encounter
--- OUTSIDE RECORDS SUMMARY | 2024-04-04 14:15 | XMS_ITS | Encounter Summary ---
Author Organization [facility] [place] [address] Care Team Providers Care Septic Tank Setter Name Role Phone AdeelUrbano Primary Care Provider Encounter Details Date Type Department Care Team (Late st Contact Info) Description 10/26/2015 Orders Only [place] [phone] Dominique Jackson RN H/O kidney [...] PM EDT Office Visit Cardiology at [address] [phone] Jay Urban MD [facility] [place] [address] 04/15/2024 10:00 AM EDT Hospital Encounter Non-[place] [address] Arrived documented as of this [...] LABORATORY Blood, Urine Dipstick Small(A) Negative mg/dL [facility] Ketone, Urine Dipstick Negative Negative mg/dL [facility] Nitrite, Urine Dipstick Negative Negative [facility] Leukocytes, Urine Dipstick Trace(A) Negative [facility] Appearance, Urine Dipstick Clear Clear [facility] Specific [place] Urine Automated 1.023 1.002 - 1.030 [facility] Color, Urine Dipstick Yellow Yellow [facility] RBC, Urine 5(H) 0 - 3 /HPF [facility] WBC, Urine 10(H) 0 - 3 /HPF [facility] Squamous Epithelial Cells, Urine <1 <=4 /HPF [facility] Hyaline Casts, Urine 3(H) 0 - 2 /LPF [facility] Reflex to Culture Yes [facility] Urine specimen (specimen) 10/26/2015 8:13 AM EDT 10/26/2015 8:17 AM EDT Narrative Resulting Agency Comment Spec In Lab Tal Eagle MD URINE ORDERABLES [facility] [place] [address] * (ABNORMAL) Comprehensive metabolic panel (non-fasting) (10/26/2015 8:10 AM EDT) Glucose 176 65 - 199 mg/dL [facility] Comment:Diabetes: >=200 mg/d L plus symptoms Blood Urea Nitrogen 17 10 - 20 mg/dL [facility] Creatinine 1.49 0.80 - 1.50 mg/dL [facility] Comment: Please note that the pediatric reference intervals supplied above were not validated at [facility]. Results from pediatric patients should [...] [facility] Alanine Aminotransferase 29 0 - 55 unit/L [facility] Alkaline Phosphatase 86 40 - 120 unit/L [facility] Bilirubin, Total 1.0 0.2 - 1.3 mg/dL [facility] Bilirubin, Direct 0.2 0.0 - 0.3 mg/dL [facility] Est Glomerular Filtration Rate 47(L) >=60 [facility] Comment: This [...] the following links into your internet browser. [email or web address] [email or web address] Blood specimen (specimen) 10/26/2015 8:10 AM EDT 10/26/2015 8:19 AM EDT Narrative Resulting Agency Comment Spec In Lab Tal Eagle MD CHEMISTRY ORDERAB LES Performing Organization Address [facility] Co de Phone Number [facility] [place] [address] * Uric acid (10/26/2015 8:10 AM EDT) Uric Acid 7.8 3.5 - 8.5 mg/dL [facility] Blood specimen (specimen) 10/26/2015 8:10 AM EDT 10/26/2015 8:19 AM EDT Narrative Resulting Agency Comment Spec In Lab Tal Eagle MD CHEMISTRY ORDERAB LES Performing Organization Address [facility] Co de Phone Number [facility] [place] [address] * Tacrolimus level (10/26/2015 8:10 AM EDT) Tacrolimus 11.4 ng/mL [facility] Comment:Trough therapeutic: 5-15 ng/mL Blood specimen (specimen) 10/26/2015 8:10 AM EDT 10/26/2015 10:39 AM EDT Narrative Resulting Agency Comment Spec In Lab Tal Eagle MD CHEMISTRY ORDERAB LES Performing Organization Address [facility] Co de Phone Number [facility] [place] [address] * (ABNORMAL) Magnesium (10/26/2015 8:10 AM EDT) Magnesium 0.58(L) 0.69 - 1.07 mmol/L [facility] Blood specimen (specimen) 10/26/2015 8:10 AM EDT 10/26/2015 8:19 AM EDT Narrative Resulting Agency Comment Spec In Lab Tal Eagle MD CHEMISTRY ORDERAB LES [facility] [place] [address] documented in this encounter Visit Diagnoses Diagnosis H/O kidney transplant Kidney replaced by transplant documented in this encounter Care Teams Septic Tank Setter Relationship Specialty Start Date End Date Urbano Denis DO [address] [place] [address] PCP - General 09/03/12 03/17/22 Ruchi Valles RN Nurse Clinic Transplant Surgery 07/30/15 documented as of this encounter
--- OUTSIDE RECORDS SUMMARY | 2024-04-04 14:15 | XMS_ITS | Encounter Summary ---
Author Organization formerly [facility] [place] [address] Care Team Providers Care Pad Making Machine Operator Name Role Phone Urbano Denis DO Primary Care Provider [phone] Encounter Details Date Type Department Care Team (Late st Contact Info) Description 10/02/2015 10:30 AM EDT Office Visit [place] [address] Jennifer Amaro MD [facility] [place] [address] H/O kidney transplant Social History Tobacco Use [...] Bell, RD - 10/02/2015 4:29 PM EDT [facility] Post Transplant Nutrition Follow Up Date: 10/02/2015 Patient: Cody Bolden Transplant Date: 09/16/15 [place] organ UNOS diagnosis: Transplant: Mr. Cody Bolden [...] Value Date CHLPL 188 10/02/2015 Assessment: This va underwriter provided patient with a copy of his [...] Total infused: 2,000cc Juan Daniel Escalante RN [facility] Solid Organ Transplant [phone] (Pager: [phone]) * Jennifer Amaro MD - 10/02/2015 10:30 [...] EXTREMITY performed by Jennifer Amaro MD at [facility] OR ??? Pro transplantation of kidney N/A 09/16/2015 @KIDNEY TRANSPLANT, WITHOUT RECIPIENT NEPHRECTOMY performed by Franko Larkin MD at [facility] OR ??? Pro transplant, prep cadaver renal graft N/A 09/16/2015 @PREPARATION CADAVERIC RENAL ALLOGRAFT performed by Franko Larkin MD at [facility] OR ??? N/A 09/16/2015 ORGAN ACQUISITION RENAL, CADAVERIC performed by Franko Larkin MD at [facility] OR Family History: No family history [...] is no abdominal tenderness tenderness. Wound: Clean ([place] removed and replaced with half length steristrips). [...] PM EDT Office Visit Cardiology at [address] [phone] Jay Urban MD [facility] [address] 04/15/2024 10:00 AM EDT Hospital Encounter Non-Invasive [place] [phone] Arrived documented as of this encounter Procedures [...] * Urine culture (10/02/2015 9:30 AM EDT) [facility] Urine Culture No growth (Less than 1,000 cfu/ml). [facility] Urine specimen obtained by clean catch procedure (specimen) 10/02/2015 9:30 AM EDT 10/02/2015 10:31 AM EDT Narrative Resulting Agency Comment Spec In Lab Jennifer Amaro MD MICROBIOLOGY - GENERAL ORDERABLES Performing Organization Address [facility]/ZIP Co de Phone Number [facility] [place] [address] * Green Tube HOLD (10/02/2015 9:30 AM EDT) [facility] Green Hold Sample in lab. [facility] Blood specimen (specimen) Venous Draw / Unknown 10/02/2015 9:30 AM EDT 10/02/2015 9:53 AM EDT Jennifer Amaro MD CHEMISTRY ORDE RABLES Performing Organization Address City/[facility]/ZIP Co de Phone Number [facility] [place] [address] * (ABNORMAL) Differential, Automated (10/02/2015 9:30 AM EDT) Pathologist [facility] Neutrophil % 70.3 % [facility] Neutrophil Absolute 8.39(H) 1.50 - 6.30 x10(3)/[facility] LABORAT[facility] Lymph % 23.1 % [facility] Lymphocytes Abs 2.8 1.0 - 3.6 x10(3)/[facility] LABORATORY Monocyte % 3.4 % [facility] Monocyte Abs 0.4 0.2 - 1.0 x10(3)/[facility] LABORATORY Eos % 2.1 % [facility] Eosinophils Abs 0.2 0.0 - 0.5 x10(3)/[facility] LABORATORY Basophil % 0.6 % [facility] Baso Absolute 0.1 0.0 - 0.2 x10(3)/[facility] LABORATORY Immature Gran % 0.50 % [facility] Comment: Immature granulocytes(IG's)percentage and absolute count will include metamyelocytes, myelocytes, and promyelocytes. Blood smears from CBCs yielding IG's will be scanned manually for concordance. If this scan disagrees with the automated IG or if promyelocytes are noted, a manual differential will be performed. Immature Gran Absolute 0.06(H) 0.00 - 0.05 x10(3)/[facility]ORY Blood specimen (specimen) 10/02/2015 9:30 AM EDT 10/02/2015 9:52 AM EDT Narrative Resulting Agency Comment Spec In Lab Jennifer Amaro MD HEMATOLOGY ORD ERABLES [facility] [place] [address] * (ABNORMAL) Hemogram (10/02/2015 9:30 AM EDT) White Blood Cell 11.9(H) 4.0 - 10.0 x10(3)/[facility] LABORATORY Red Blood Cell 3.82(L) 4.63 - 6.08 x10(6)/mc L [facility] Hemoglobin 12.2(L) 13.7 - 17.5 gm/dL [facility] Hematocrit 35.8(L) 40.0 - 51.0 % [facility] Mean Cell Volume 93.7(H) 79.0 - 92.0 fL [facility] Mean Cell Hemoglobin 31.9 25.6 - 32.2 pg [facility] Mean Cell Hemoglobin Concentration 34.1 32.0 - 36.5 gm/dL [facility] Platelet 250 145 - 370 x10(3)/mc L [facility] RDW Standard Deviation 52.2(H) 35.0 - 46.0 fL [facility] RDW coefficient of variation 15.3(H) 10.9 - 14.4 % [facility] Mean Platelet Volume 9.6 9.0 - 12.0 fL [facility] Blood specimen (specimen) 10/02/2015 9:30 AM EDT 10/02/2015 9:52 AM EDT Narrative Resulting Agency Comment Spec In Lab Jennifer Amaro MD HEMATOLOGY ORD AMANDABLES Performing Organization Address City/[facility] Co de Phone Number [facility] [place] [address] * Tacrolimus level (10/02/2015 9:30 AM EDT) Tacrolimus 8.6 ng/mL [facility] Comment:Trough therapeutic: 5-15 ng/mL Blood specimen (specimen) 10/02/2015 9:30 AM EDT 10/02/2015 11:30 AM EDT Narrative Resulting Agency Comment Spec In Lab Jennifer Amaro MD CHEMISTRY ORDE DICK Performing Organization Address City/[facility] Co de Phone Number [facility] [place] [address] * (ABNORMAL) Urinalysis with reflex Culture (10/02/2015 9:30 AM EDT) Glucose, Urine Dipstick Negative Negative mg/dL [facility] Protein, Urine Dipstick Negative Negative mg/dL [facility] Bilirubin, [...] [facility] pH, Urn (dipstick) 5.0 5.0 - 8.0 [facility] Blood, Urine Dipstick Small(A) Negative mg/dL [facility] Ketone, Urine Dipstick Negative Negative mg/dL [facility] Nitrite, Urine Dipstick Negative Negative [facility] Leukocytes, Urine Dipstick Negative Negative mcL [facility] Appearance, Urine Dipstick Clear Clear [facility] Specific [place] Urine Automated 1.026 1.002 - 1.030 [facility] Color, Urine Dipstick Yellow Yellow [facility] RBC, Urine 4(H) 0 - 3 /HPF [facility] WBC, Urine 14(H) 0 - 3 /HPF [facility] WBC Clumps, Urine Rare(A) None /HPF [facility] Reflex to Culture Yes [facility] Urine specimen obtained by clean catch procedure (specimen) 10/02/2015 9:30 AM EDT 10/02/2015 9:43 AM EDT Narrative Resulting Agency Comment Spec In Lab Jennifer Amaro MD URINE ORDERABL ES [facility] [place] [address] * (ABNORMAL) Reticulocyte Count (10/02/2015 9:30 AM EDT) Reticulocyte % 3.0(H) 0.5 - 2.4 % [facility] Retic Abs # 0.110(H) 0.027 - 0.095 x10(6)/mc L [facility] Immature Retic% 3.2 2.3 - 15.9 % [facility] Reticulated Hgb 36.7 28.5 - 38.9 pg [facility] Immature Plt % 0.6 0.0 - 7.4 % [facility] Blood specimen (specimen) 10/02/2015 9:30 AM EDT 10/02/2015 9:52 AM EDT Narrative Resulting Agency Comment Spec In Lab Jennifer Amaro MD HEMATOLOGY ORD ERABLES Performing Organization Address [facility] Co de Phone Number [facility] [place] [address] * Uric acid (10/02/2015 9:30 AM EDT) Uric Acid 5.3 3.5 - 8.5 mg/dL [facility] Blood specimen (specimen) 10/02/2015 9:30 AM EDT 10/02/2015 9:52 AM EDT Narrative Resulting Agency Comment Spec In Lab Jennifer Amaro MD CHEMISTRY ORDTiny JENNINGS Performing Organization Address [facility] Co de Phone Number [facility] [place] [address] * Phosphorus (10/02/2015 9:30 AM EDT) Phosphorus 2.6 2.5 - 4.5 mg/dL [facility] Blood specimen (specimen) 10/02/2015 9:30 AM EDT 10/02/2015 9:52 AM EDT Narrative Resulting Agency Comment Spec In Lab Jennifer Amaro MD CHEMISTRY ORDTiny JENNINGS Performing Organization Address City/[facility]/ZIP Co de Phone Number [facility] [place] [address] * (ABNORMAL) Magnesium (10/02/2015 9:30 AM EDT) Pathologist [facility] Magnesium 0.53(L) 0.69 - 1.07 mmol/L [facility] Blood specimen (specimen) 10/02/2015 9:30 AM EDT 10/02/2015 9:52 AM EDT Narrative Resulting Agency Comment Spec In Lab Jennifer Amaro MD CHEMISTRY ROCHELLE JENNINGS [facility] [place] [address] * (ABNORMAL) Comprehensive metabolic panel (non-fasting) (10/02/2015 9:30 AM EDT) [facility] Glucose 137 65 - 199 mg/dL [facility] Comment:Diabetes: >=200 mg/d L plus symptoms Blood Urea Nitrogen 22(H) 10 - 20 mg/dL [facility] Creatinine 1.58(H) 0.80 - 1.50 mg/dL [facility] Comment: Please note that the pediatric reference intervals supplied above were not validated at [facility]. Results from pediatric patients should be interpreted in conjunction to the patient's age, height and muscle mass. Sodium 136 135 - 145 mmol/L [facility] Potassium 4.5 3.5 - 5.0 mmol/L [facility] Comment: Please note: ??Patients with WBC >100,000 may have falsely elevated Potassium levels. ??For accurate Potassium quantification in these patients send serum separator tube (gold top) for subsequent determinations. ??Contact the Clinical Chemistry Laboratory if there are any questions. Chloride 98 98 - 107 mmol/L [facility] Carbon Dioxide 23 22 - 31 mmol/L [facility] Anion Gap 15 5 - 15 mmol/L [facility] Calcium 9.1 8.5 - 10.5 mg/dL [facility] Protein, Total 6.6 6.1 - 8.0 gm/dL [facility] Albumin 3.8 3.2 - 5.2 gm/dL [facility] Aspartate Aminotransferase 15 0 - 39 unit/L [facility] Alanine Aminotransferase 25 0 - 55 unit/L [facility] Alkaline Phosphatase 78 40 - 120 unit/L [facility] Bilirubin, Total 0.8 0.2 - 1.3 mg/dL [facility] Bilirubin, Direct 0.2 0.0 - 0.3 mg/dL [facility] Est Glomerular Filtration Rate 44(L) >=60 [facility] Comment: This [...] the following links into your internet browser. [email or web address] Blood specimen (specimen) 10/02/2015 9:30 AM EDT 10/02/2015 9:52 AM EDT Narrative Resulting Agency Comment Spec In Lab Jennifer Amaro MD CHEMISTRY ROCHELLE JENNINGS [facility] Organization Address City/State/[facility] Co de Phone Number [facility] [place] [address] * Cholesterol, total (10/02/2015 9:30 AM EDT) Cholesterol, Total 188 <=199 mg/dL [facility] Comment: Recommendations of the NCEP Adult Treatment Panel for the following risk cutoff thresholds for the [place] population: Desirable: <200 mg/dL Borderline High: 200-239 mg/dL High: > or = 240 mg/dL Blood specimen (specimen) 10/02/2015 9:30 AM EDT 10/02/2015 9:52 AM EDT Narrative Resulting Agency Comment Spec In Lab Jennifer Amaro MD CHEMISTRY ROCHELLE EJNNINGS [facility] [place] [address] documented in this encounter Visit Diagnoses Diagnosis [...] mLs documented in this encounter Care Teams Pad Making Machine Operator Relationship Specialty Start Date End Date Urbano Denis DO [address] [place] [address] PCP - General 09/03/12 03/17/22 Ruchi Valles RN Nurse Clinic Transplant Surgery 07/30/15 documented as of this encounter
--- OUTSIDE RECORDS SUMMARY | 2024-04-04 14:15 | XMS_ITS | Encounter Summary ---
Author Organization Formerly [facility] [place] [address] Care Team Providers Care Board Handler Name Role Phone AdeelUrbnao toscano Primary Care Provider [phone] Encounter Details Date Type Department Care Team (Late st Contact Info) Description 10/01/2015 Orders [place] [phone] Tulio Marcelo MD [facility] 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, [...] PM EDT Office Visit Cardiology at [address] [phone] Jay Urban MD [facility] [place] [address] 04/15/2024 10:00 AM EDT Hospital Encounter Non-[place] [address] Arrived Pending Results Name Type Priority Associated [...] chronicity documented in this encounter Care Teams Board Handler Relationship Specialty Start Date End Date Urbano Denis DO [address] [place] [address] [address] [place] [address] PCP - General 09/03/12 03/17/22 Ruchi Valles RN Nurse Clinic Transplant Surgery 07/30/15 documented as of this encounter
--- OUTSIDE RECORDS SUMMARY | 2024-04-04 14:15 | XMS_ITS | Encounter Summary ---
Author Organization Formerly [facility] [place] [address] Care Team Providers Care Assistant News Director Name Role Phone AdeelUrbano toscano Primary Care Provider [phone] Reason for Visit * Reason Onset Date Comments Medication Refill 10/17/2015 Encounter Details Date Type Department Care Team (Late st Contact Info) Description 10/17/2015 Refill [place] [address] Samia Escalante, RN Social History [...] PM EDT Office Visit Cardiology at [address] [phone] Jay Urban MD [facility] [address] [place] [address] 04/15/2024 10:00 AM EDT Hospital Encounter Non-[place] [address] Arrived documented as of this encounter Visit Diagnoses Not on filedocumented in this encounter Care Teams Assistant News Director Relationship Specialty Start Date End Date Urbano Denis DO [address] [place] [address] [address] [facility] [address] [place] [address] PCP - General 09/03/12 03/17/22 Ruchi Valles RN Nurse Clinic Transplant Surgery 07/30/15 documented as of this encounter
--- OUTSIDE RECORDS SUMMARY | 2024-04-04 14:15 | XMS_ITS | Encounter Summary ---
Author Organization [facility] [place] [address] Care Team Providers Care Helium Arc Welder Name Role Phone Urbano Denis DO Primary Care Provider [phone] Encounter Details Date Type Department Care Team (Late st Contact Info) Description 10/12/2015 10:00 AM EDT Office [place] [address] Que Amaro MD [facility] [place] [address] Kidney replaced by transplant Social History Tobacco [...] TOUCH ULTRAMINI Kit 0 ??? ONE TOUCH DELVaporWire LANCETS 30 gauge Misc 0 No current [...] performed by Que Amaro MD at [facility] OR ??? Pro transplantation of kidney N/A 09/16/2015 @KIDNEY TRANSPLANT, WITHOUT RECIPIENT NEPHRECTOMY performed by Franko Larkin MD at [facility] OR ??? Pro transplant, prep cadaver renal graft N/A 09/16/2015 @PREPARATION CADAVERIC RENAL ALLOGRAFT performed by Franko Larkin MD at [facility] OR ??? N/A 09/16/2015 ORGAN ACQUISITION RENAL, CADAVERIC performed by Franko Larkin MD at [facility] OR Family History: No family [...] PM EDT Office Visit Cardiology at [address] [phone] Jay Urban MD [facility] [place] [address] 04/15/2024 10:00 AM EDT Hospital Encounter Non-Invasive [place] [address] Arrived documented as of this encounter Procedures [...] from urine. 10,000-49,000 cfu/ml Enterococcus species (A) [facility] Organism Enterococcus species(A) [facility] Organism Coagulase negative Staphylococcus species(A) [facility] Urine specimen obtained [...] Que Amaro MD MICROBIOLOGY - GENERAL ORDERABLES [facility] [place] [address] * (ABNORMAL) Urinalysis with reflex Culture (10/12/2015 [...] HOSPITAL LABOR[facility]ORY Leukocytes, Urine Dipstick Trace(A) Negative [facility] Appearance, Urine Dipstick Clear Clear [facility] Specific [place] Urine Automated 1.013 1.002 - 1.030 [facility] Color, Urine Dipstick Yellow Yellow [facility] RBC, Urine <1 0 - 3 /HPF [facility] WBC, Urine 11(H) 0 - 3 /HPF [facility] WBC Clumps, Urine Rare(A) None /HPF [facility] Bacteria, Urine Rare(A) None /HPF [facility] Transitional Epithelial Cells, Urine 1 <=1 /HPF [facility] Reflex to Culture Yes [facility] Urine specimen obtained by clean catch procedure (specimen) 10/12/2015 10:00 AM EDT 10/12/2015 10:00 AM EDT Narrative Resulting Agency Comment Spec In Lab Que Amaro MD URINE ORDERABL ES [facility] [place] [address] * Protein/Creatinine Ratio, urine (10/12/2015 9:50 AM EDT) Creatinine, Urine 69 mg/dL [facility] Protein, Urine 9 0 - 12 mg/dL [facility] Protein / Creatinine Ratio, Urine 0.1 ratio [facility] Urine specimen (specimen) 10/12/2015 9:50 AM EDT 10/12/2015 10:03 AM EDT Narrative Resulting Agency Comment Spec In Lab Que Amaro MD URINE ORDERABL ES [facility] [place] [address] documented in this encounter Visit Diagnoses Diagnosis Kidney replaced by transplant documented in this encounter Care Teams Helium Arc Welder Relationship Specialty Start Date End Date Urbano Denis DO [address] [place] [address] PCP - General 09/03/12 03/17/22 Ruchi Valles RN Nurse Clinic Transplant Surgery 07/30/15 documented as of this encounter
--- OUTSIDE RECORDS SUMMARY | 2024-04-04 14:15 | XMS_ITS | Encounter Summary ---
Author Organization [facility] [place] [address] Care Team Providers Care Client Services Administrator Name Role Phone Urbano Denis DO Primary Care Provider [phone] Encounter Details Date Type Department Care Team (Late st Contact Info) Description 10/04/2015 Telephone [place] [phone] Samia Escalante, RN Social History Tobacco Use [...] tomorrow with Dr. Amaro. Samia Escalante, RN [facility] Solid Organ Transplant [phone] (Pager: [phone]) documented in this encounter Plan of Treatment Upcoming Encounters Date Type Department Care Team (Late st Contact Info) Description 04/08/2024 1:40 PM EDT Office Visit Cardiology at [address] [phone] Jay Urban MD [facility] [place] [address] 04/15/2024 10:00 AM EDT Hospital Encounter Non-Invasive [place] [phone] Arrived documented as of this encounter Visit Diagnoses Not on filedocumented in this encounter Care Teams Client Services Administrator Relationship Specialty Start Date End Date Urbano Denis DO [address] [place] [address] [address] [facility] [address] [place] [address] PCP - General 09/03/12 03/17/22 Ruchi Valles RN Nurse Clinic Transplant Surgery 07/30/15 documented as of this encounter
--- OUTSIDE RECORDS SUMMARY | 2024-04-04 14:15 | XMS_ITS | Encounter Summary ---
Author Organization [facility] [place] [address] Care Team Providers Care Internet Marketer Name Role Phone Urbano Denis DO Primary Care Provider Encounter Details Date Type Department Care Team (Latest Contact Info) Description 10/26/2015 7:50 AM EDT Laboratory Appointment Lab [address] [place] [phone] H/O kidney transplant Social History [...] PM EDT Office Visit Cardiology at [address] [phone] Jay Urban MD [facility] [place] [address] 04/15/2024 10:00 AM EDT Hospital Encounter [place] [address] Arrived documented as of this [...] Gram Positive organisms , probable contaminant(A ) [facility] Urine specimen (specimen) 10/26/2015 8:13 AM EDT 10/26/2015 8:45 AM EDT Narrative Resulting Agency Comment Spec In Lab Tal Eagle MD MICROBIOLOGY - [facility] ORDERABLES [facility] [place] [address] * (ABNORMAL) Urinalysis with reflex Culture (10/26/2015 [...] [facility] pH, Urn (dipstick) 5.0 5.0 - 8.0 [facility] Blood, Urine Dipstick Small(A) Negative mg/dL [facility] Ketone, Urine Dipstick Negative Negative mg/dL [facility] Nitrite, Urine Dipstick Negative Negative [facility] Leukocytes, Urine Dipstick Trace(A) Negative [facility] Appearance, Urine Dipstick Clear Clear [facility] Specific Xenia Urine Automated 1.023 1.002 - 1.030 [facility] Color, Urine Dipstick Yellow Yellow [facility] RBC, Urine 5(H) 0 - 3 /HPF [facility] WBC, Urine 10(H) 0 - 3 /HPF [facility] Squamous Epithelial Cells, Urine <1 <=4 /HPF [facility] Hyaline Casts, Urine 3(H) 0 - 2 /LPF [facility] Reflex to Culture Yes [facility] Urine specimen (specimen) 10/26/2015 8:13 AM EDT 10/26/2015 8:17 AM EDT Narrative Resulting Agency Comment Spec In Lab Tal Eagle MD URINE ORDERABLES [facility] [place] [address] * (ABNORMAL) Phosphorus (10/26/2015 8:10 AM EDT) [facility] Phosphorus 2.4(L) 2.5 - 4.5 mg/dL [facility] Blood specimen (specimen) Venous Draw / Unknown 10/26/2015 8:10 AM EDT 10/26/2015 8:21 AM EDT Narrative Resulting Agency Comment Spec In Lab Tal Eagle MD CHEMISTRY ORDERAB LES [facility] [place] [address] * (ABNORMAL) Cholesterol, total (10/26/2015 8:10 AM EDT) [facility] Cholesterol, Total 261(H) <=199 mg/dL [facility] Comment: Recommendations of the NCEP Adult Treatment Panel for the following risk cutoff thresholds for the [place] population: Desirable: <200 mg/dL Borderline High: 200-239 mg/dL High: > or = 240 mg/dL Blood specimen (specimen) Venous Draw / Unknown 10/26/2015 8:10 AM EDT 10/26/2015 8:21 AM EDT Narrative Resulting Agency Comment Spec In Lab Tal Eagle MD CHEMISTRY ORDERAB LES Performing Organization Address City/[facility]/ZIP Co de Phone Number [facility] [place] [address] * (ABNORMAL) Differential, Automated (10/26/2015 8:10 AM EDT) [facility] Neutrophil % 77.6 % [facility] Neutrophil Absolute 6.76(H) 1.50 - 6.30 x10(3)/mc L [facility] Lymph % 16.5 % [facility] Lymphocytes Abs 1.4 1.0 - 3.6 x10(3)/mc L [facility] Monocyte % 4.2 % [facility] Monocyte Abs 0.4 0.2 - 1.0 x10(3)/[facility] Eos % 0.6 % [facility] Eosinophils Abs 0.0 0.0 - 0.5 x10(3)/[facility] Basophil % 0.2 % [facility] Baso Absolute 0.0 0.0 - 0.2 x10(3)/[facility] Immature Gran % 0.90 % [facility] Comment: Immature granulocytes(IG's)percentage and absolute count will include metamyelocytes, myelocytes, and promyelocytes. Blood smears from CBCs yielding IG's will be scanned manually for concordance. If this scan disagrees with the automated IG or if promyelocytes are noted, a manual differential will be performed. Immature Gran Absolute 0.08(H) 0.00 - 0.05 x10(3)/[facility] Blood specimen (specimen) 10/26/2015 8:10 AM EDT 10/26/2015 8:19 AM EDT Narrative Resulting Agency Comment Spec In Lab Tal Eagle MD HEMATOLOGY ORDERA BLES [facility] [place] [address] * (ABNORMAL) Hemogram (10/26/2015 8:10 AM EDT) White Blood Cell 8.7 4.0 - 10.0 x10(3)/[facility] Red Blood Cell 4.58(L) 4.63 - 6.08 x10(6)/ L [facility] Hemoglobin 15.0 13.7 - 17.5 gm/dL [facility] Hematocrit 42.1 40.0 - 51.0 % [facility] Mean Cell Volume 91.9 79.0 - 92.0 fL [facility] Mean Cell Hemoglobin 32.8(H) 25.6 - 32.2 pg [facility] Mean Cell Hemoglobin Concentration 35.6 32.0 - 36.5 gm/dL [facility] Platelet 295 145 - 370 x10(3)/mc L [facility] RDW Standard Deviation 52.0(H) 35.0 - 46.0 fL [facility] RDW coefficient of variation 15.6(H) 10.9 - 14.4 % [facility] Mean Platelet Volume 9.5 9.0 - 12.0 fL [facility] Blood specimen (specimen) 10/26/2015 8:10 AM EDT 10/26/2015 8:19 AM EDT Narrative Resulting Agency Comment Spec In Lab Tal Eagle MD HEMATOLOGY ORDERA BLES [facility] [place] [address] * (ABNORMAL) Comprehensive metabolic panel (non-fasting) (10/26/2015 8:10 AM EDT) Glucose 176 65 - 199 mg/dL [facility] Comment:Diabetes: >=200 mg/d L plus symptoms Blood Urea Nitrogen 17 10 - 20 mg/dL [facility] Creatinine 1.49 0.80 - 1.50 mg/dL [facility] Comment: Please note that the pediatric reference intervals supplied above were not validated at [facility]. Results from pediatric patients should be interpreted in conjunction to the patient's age, height and muscle mass. Sodium 138 135 - 145 mmol/L [facility] Potassium 4.2 3.5 - 5.0 mmol/L [facility] Comment: Please note: ??Patients with WBC >100,000 may have falsely elevated Potassium levels. ??For accurate Potassium quantification in these patients send serum separator tube (gold top) for subsequent determinations. ??Contact the Clinical Chemistry Laboratory if there are any questions. Chloride 99 98 - 107 mmol/L [facility] Carbon Dioxide 22 22 - 31 mmol/L [facility] Anion Gap 17(H) 5 - 15 mmol/L [facility] Calcium 9.2 8.5 - 10.5 mg/dL [facility] Protein, Total 7.5 6.1 - 8.0 gm/dL [facility] Albumin 4.3 3.2 - 5.2 gm/dL [facility] Aspartate Aminotransferase 19 0 - 39 unit/L [facility] Alanine Aminotransferase 29 0 - 55 unit/L [facility] Alkaline Phosphatase 86 40 - 120 unit/L [facility] Bilirubin, Total 1.0 0.2 - 1.3 mg/dL [facility] Bilirubin, Direct 0.2 0.0 - 0.3 mg/dL [facility] Est Glomerular Filtration Rate 47(L) >=60 [facility] Comment: This [...] the following links into your internet browser. [email or web address] Blood specimen (specimen) 10/26/2015 8:10 AM EDT 10/26/2015 8:19 AM EDT Narrative Resulting Agency Comment Spec In Lab Tal Eagle MD CHEMISTRY ORDERAB LES [facility] [place] [address] * Uric acid (10/26/2015 8:10 AM EDT) Uric Acid 7.8 3.5 - 8.5 mg/dL [facility] Blood specimen (specimen) 10/26/2015 8:10 AM EDT 10/26/2015 8:19 AM EDT Narrative Resulting Agency Comment Spec In Lab Tal Eagle MD CHEMISTRY ORDERAB LES Performing Organization Address City/[facility]/ZIP Co de Phone Number [facility] [place] [address] * Tacrolimus level (10/26/2015 8:10 AM EDT) Tacrolimus 11.4 ng/mL [facility] Comment:Trough therapeutic: 5-15 ng/mL Blood specimen (specimen) 10/26/2015 8:10 AM EDT 10/26/2015 10:39 AM EDT Narrative Resulting Agency Comment Spec In Lab Tal Eagle MD CHEMISTRY ORDERAB LES Performing Organization Address [facility] Co de Phone Number [facility] [place] [address] * (ABNORMAL) Magnesium (10/26/2015 8:10 AM EDT) Magnesium 0.58(L) 0.69 - 1.07 mmol/L [facility] Blood specimen (specimen) 10/26/2015 8:10 AM EDT 10/26/2015 8:19 AM EDT Narrative Resulting Agency Comment Spec In Lab Tal Eagle MD CHEMISTRY ORDERAB LES Performing Organization Address [facility] Co de Phone Number [facility] [place] [address] documented in this encounter Visit Diagnoses Diagnosis H/O kidney transplant Kidney replaced by transplant documented in this encounter Care Teams Internet Marketer Relationship Specialty Start Date End Date Urbano Denis DO [address] [place] [address] PCP - General 09/03/12 03/17/22 Hai STANLEY,Ruchi Nurse Clinic Transplant Surgery 07/30/15 documented as of this encounter
--- OUTSIDE RECORDS SUMMARY | 2024-04-04 14:15 | XMS_ITS | Encounter Summary ---
Author Organization [facility] [place] [address] Care Team Providers Care Bread And Pastry Baker Name Role Phone Urbano Denis DO Primary Care Provider Encounter Details Date Type Department Care Team (Late st Contact Info) Description 09/25/2015 External Results [place] [address] Provider, Scanning Social History Tobacco Use Types [...] PM EDT Office Visit Cardiology at [address] [phone] [facility] [place] [address] 04/15/2024 10:00 AM EDT Hospital Encounter Non-[place] [address] Arrived documented as of this encounter Procedures Procedure Name Priority Date/Time Associated Diagnosis Comments SURGICAL PATHOLOGY SCAN Routine 09/25/2015 documented in this encounter Results * Scan Doc: Surgical Pathology (09/25/2015) Franko Larkin MD MEDIA MGR SCAN EXT O RDR/RSLT documented in this encounter Visit Diagnoses Not on filedocumented in this encounter Care Teams Bread And Pastry Baker Relationship Specialty Start Date End Date Urbano Denis DO [address] [place] [address] PCP - General 09/03/12 03/17/22 Ruchi Valles RN Nurse Clinic Transplant Surgery 07/30/15 documented as of this encounter
--- OUTSIDE RECORDS SUMMARY | 2024-04-04 14:15 | XMS_ITS | Encounter Summary ---
Author Organization Formerly [facility] Address [facility] [place] [address] Care Team Providers Care Perinatal Coordinator Name Role Phone Urbano Denis DO Primary Care Provider [phone] Reason for Visit * Reason Comments Kidney Transplant Follow-up Encounter Details Date Type Department Care Team (Late st Contact Info) Description 10/05/2015 9:30 AM EDT Office Visit [place] [address] Larry Larkin MD [facility] [place] [address] H/O kidney transplant Social History Tobacco Use [...] EXTREMITY performed by Que Amaro MD at [facility] OR ??? Pro transplantation of kidney N/A 09/16/2015 @KIDNEY TRANSPLANT, WITHOUT RECIPIENT NEPHRECTOMY performed by Larry Larkin MD at [facility] OR ??? Pro transplant, prep cadaver renal graft N/A 09/16/2015 @PREPARATION CADAVERIC RENAL ALLOGRAFT performed by Larry Larkin MD at [facility] MAIN OR ??? N/A 09/16/2015 ORGAN ACQUISITION RENAL, CADAVERIC performed by Larry Larkin MD at [facility] MAIN OR Family History: No family history [...] Return to clinic: 3 days MD: LARRY LARIKN MD * Herlinda Bell, RD - 10/05/2015 12:37 PM EDT [facility] Post Transplant Nutrition Follow Up Date: 10/05/2015 Patient: Cody Bolden Transplant Date: 09/16/15 Hughes organ UNOS diagnosis: Transplant: Mr. Cody Bolden [...] Value Date CHLPL 193 10/05/2015 Assessment: This commercial lines underwriter provided patient with a copy of [...] PM EDT Office Visit Cardiology at [address] [address] Jay Urban MD [facility] [place] [address] 04/15/2024 10:00 AM EDT Hospital Encounter Non-[place] [address] Arrived documented as of this encounter Procedures [...] EDT) Glucose 134 65 - 199 mg/dL [facility] Comment:Diabetes: >=200 mg/d L plus symptoms Blood Urea Nitrogen 19 10 - 20 mg/dL [facility] Creatinine 1.47 0.80 - 1.50 mg/dL [facility] Comment: Please note that the pediatric reference intervals supplied above were not validated at [facility]. Results from pediatric patients should be interpreted [...] [facility] Protein, Total 7.0 6.1 - 8.0 gm/dL [facility] Albumin 3.9 3.2 - 5.2 gm/dL [facility] Aspartate Aminotransferase 18 0 - 39 unit/L [facility] Alanine Aminotransferase 27 0 - 55 unit/L [facility] Alkaline Phosphatase 92 40 - 120 unit/L [facility] Bilirubin, Total 0.8 0.2 - 1.3 mg/dL [facility] Bilirubin, Direct 0.1 0.0 - 0.3 mg/dL [facility] Est Glomerular Filtration Rate 48(L) >=60 [facility] Comment: This [...] the following links into your internet browser. [email or web address] [email or web address]/[facility] Blood specimen (specimen) 10/12/2015 9:45 AM EDT 10/12/2015 9:57 AM EDT Narrative Resulting Agency Comment Spec In Lab Que Amaro MD CHEMISTRY ROCHELLE JENNINGS Performing Organization Address [facility] Co de Phone Number [facility] [place] [address] * Tacrolimus level (10/12/2015 9:45 AM EDT) Tacrolimus 5.9 ng/mL [facility] Comment:Trough therapeutic: 5-15 ng/mL Blood specimen (specimen) 10/12/2015 9:45 AM EDT 10/12/2015 11:13 AM EDT Narrative Resulting Agency Comment Spec In Lab Que Amaro MD CHEMISTRY ROCHELLE JENNINGS Performing Organization Address [facility] Phone Number [facility] [place] [address] * (ABNORMAL) Reticulocyte Count (10/12/2015 9:45 AM EDT) Reticulocyte % 3.1(H) 0.5 - 2.4 % [facility] Retic Abs # 0.130(H) 0.027 - 0.095 x10(6)/mc L [facility] Immature Retic% 15.1 2.3 - 15.9 % [facility] Reticulated Hgb 34.9 28.5 - 38.9 pg [facility] Immature Plt % 1.0 0.0 - 7.4 % [facility] Blood specimen (specimen) 10/12/2015 9:45 AM EDT 10/12/2015 9:57 AM EDT Narrative Resulting Agency Comment Spec In Lab Que Amaro MD HEMATOLOGY ORD ERABG Performing Organization Address [facility] Co de Phone Number [facility] [place] [address] * Uric acid (10/12/2015 9:45 AM EDT) Uric Acid 6.3 3.5 - 8.5 mg/dL [facility] Blood specimen (specimen) 10/12/2015 9:45 AM EDT 10/12/2015 9:57 AM EDT Narrative Resulting Agency Comment Spec In Lab Que Amaro MD CHEMISTRY ORDTiny JENNINGS [facility] [place] [address] * (ABNORMAL) Phosphorus (10/12/2015 9:45 AM EDT) [facility] Phosphorus 2.4(L) 2.5 - 4.5 mg/dL [facility] Blood specimen (specimen) 10/12/2015 9:45 AM EDT 10/12/2015 9:57 AM EDT Narrative Resulting Agency Comment Spec In Lab Que Amaro MD CHEMISTRY ROCHELLE JENNINGS Performing Organization Address City/[facility]/ZIP Co de Phone Number [facility] [place] [address] * (ABNORMAL) Magnesium (10/12/2015 9:45 AM EDT) [facility] Magnesium 0.54(L) 0.69 - 1.07 mmol/L [facility] Blood specimen (specimen) 10/12/2015 9:45 AM EDT 10/12/2015 9:57 AM EDT Narrative Resulting Agency Comment Spec In Lab Que Amaro MD CHEMISTRY ROCHELLE JENNINGS [facility] [place] [address] * (ABNORMAL) Cholesterol, total (10/12/2015 9:45 AM EDT) Cholesterol, Total 211(H) <=199 mg/dL [facility] MD CHEMISTRY ORDE DICK Performing Organization Address [facility] Co de Phone Number [facility] [place] [address] * Urine culture (10/05/2015 8:45 AM EDT) [facility] Urine Culture No growth (Less than 1,000 cfu/ml). [facility] Urine specimen obtained by clean catch procedure (specimen) 10/05/2015 8:45 AM EDT 10/05/2015 10:03 AM EDT Narrative Resulting Agency Comment Spec In Lab Larry Larkin MD MICROBIOLOGY - GENER AL ORDERABLES Performing Organization Address [facility] Co de Phone Number [facility] [place] [address] * (ABNORMAL) Urinalysis with reflex Culture (10/05/2015 [...] [facility] pH, Urn (dipstick) 5.0 5.0 - 8.0 [facility] Blood, Urine Dipstick Small(A) Negative mg/dL [facility] Ketone, Urine Dipstick Negative Negative mg/dL [facility] Nitrite, Urine Dipstick Negative Negative [facility] Leukocytes, Urine Dipstick Negative Negative [facility] Appearance, Urine Dipstick Clear Clear [facility] Specific [place] Urine Automated 1.023 1.002 - 1.030 [facility] Color, Urine Dipstick Yellow Yellow [facility] RBC, Urine 2 0 - 3 /HPF [facility] WBC, Urine 8(H) 0 - 3 /HPF [facility] WBC Clumps, Urine Rare(A) None /HPF [facility] Reflex to Culture Yes [facility] Urine specimen obtained by clean catch procedure (specimen) 10/05/2015 8:45 AM EDT 10/05/2015 9:12 AM EDT Narrative Resulting Agency Comment Spec In Lab Larry Larkin MD URINE ORDERABLES [facility] [place] [address] * Green Tube HOLD (10/05/2015 8:00 AM EDT) Green Hold Sample in lab. [facility] Blood specimen (specimen) Venous Draw / Unknown 10/05/2015 8:00 AM EDT 10/05/2015 9:08 AM EDT Larry Larkin MD CHEMISTRY ORDERABLES [facility] [place] [address] * Differential, Automated (10/05/2015 8:00 AM EDT) Neutrophil % 63.0 % [facility] Neutrophil Absolute 5.57 1.50 - 6.30 x10(3)/[facility] Lymph % 28.9 % [facility] Lymphocytes Abs 2.6 1.0 - 3.6 x10(3)/[facility] Monocyte % 3.4 % [facility] Monocyte Abs 0.3 0.2 - 1.0 x10(3)/[facility] Eos % 2.8 % [facility] Eosinophils Abs 0.2 0.0 - 0.5 x10(3)/[facility] Basophil % 1.6 % [facility] Baso Absolute 0.1 0.0 - 0.2 x10(3)/[facility] Immature Gran % 0.30 [...] Immature Gran Absolute 0.03 0.00 - 0.05 x10(3)/[facility] Blood specimen (specimen) 10/05/2015 8:00 AM EDT 10/05/2015 9:07 AM EDT Narrative Resulting Agency Comment Spec In Lab Larry Larkin MD HEMATOLOGY ORDERABLE S Performing Organization Address City/State/[facility] Co de Phone Number [facility] [place] [address] * (ABNORMAL) Hemogram (10/05/2015 8:00 AM EDT) White Blood Cell 8.8 4.0 - 10.0 x10(3)/mc L [facility] Red Blood Cell 3.97(L) 4.63 - 6.08 x10(6)/ L [facility] Hemoglobin 12.7(L) 13.7 - 17.5 gm/dL [facility] Hematocrit 36.5(L) 40.0 - 51.0 % [facility] Mean Cell Volume 91.9 79.0 - 92.0 fL [facility] Mean Cell Hemoglobin 32.0 25.6 - 32.2 pg [facility] Mean Cell Hemoglobin Concentration 34.8 32.0 - 36.5 gm/dL [facility] Platelet 239 145 - 370 x10(3)/mc L [facility] RDW Standard Deviation 52.0(H) 35.0 - 46.0 fL [facility] RDW coefficient of variation 15.6(H) 10.9 - 14.4 % [facility] Mean Platelet Volume 9.4 9.0 - 12.0 fL [facility] Blood specimen (specimen) 10/05/2015 8:00 AM EDT 10/05/2015 9:07 AM EDT Narrative Resulting Agency Comment Spec In Lab Larry Larkin MD HEMATOLOGY ORDERABLE S Performing Organization Address City/[facility]/ZIP Co de Phone Number [facility] [place] [address] * Tacrolimus level (10/05/2015 8:00 AM EDT) Pathologist [facility] Tacrolimus 5.4 ng/mL [facility] Comment:Trough therapeutic: 5-15 ng/mL Blood specimen (specimen) 10/05/2015 8:00 AM EDT 10/05/2015 10:50 AM EDT Narrative Resulting Agency Comment Spec In Lab Larry Larkin MD CHEMISTRY ORDERABLES [facility] [place] [address] * (ABNORMAL) Reticulocyte Count (10/05/2015 8:00 AM EDT) [facility] Reticulocyte % 3.0(H) 0.5 - 2.4 % [facility] Retic Abs # 0.120(H) 0.027 - 0.095 x10(6)/mc L [facility] Immature Retic% 6.5 2.3 - 15.9 % [facility] Reticulated Hgb 34.2 28.5 - 38.9 pg [facility] Immature Plt % 1.2 0.0 - 7.4 % [facility] Blood specimen (specimen) 10/05/2015 8:00 AM EDT 10/05/2015 9:07 AM EDT Narrative Resulting Agency Comment Spec In Lab Larry Larkin MD HEMATOLOGY ORDERABLE S Performing Organization Address [facility] Co de Phone Number [facility] [place] [address] * (ABNORMAL) Magnesium (10/05/2015 8:00 AM EDT) Magnesium 0.58(L) 0.69 - 1.07 mmol/L [facility] Blood specimen (specimen) 10/05/2015 8:00 AM EDT 10/05/2015 9:07 AM EDT Narrative Resulting Agency Comment Spec In Lab Larry Larkin MD CHEMISTRY ORDERABLES Performing Organization Address [facility] Co de Phone Number [facility] [place] [address] * Phosphorus (10/05/2015 8:00 AM EDT) Phosphorus 3.0 2.5 - 4.5 mg/dL [facility] Blood specimen (specimen) 10/05/2015 8:00 AM EDT 10/05/2015 9:07 AM EDT Narrative Resulting Agency Comment Spec In Lab Larry Larkin MD CHEMISTRY ORDERABLES Performing Organization Address [facility] Co de Phone Number [facility] [place] [address] * Uric acid (10/05/2015 8:00 AM EDT) Uric Acid 6.0 3.5 - 8.5 mg/dL [facility] Blood specimen (specimen) 10/05/2015 8:00 AM EDT 10/05/2015 9:07 AM EDT Narrative Resulting Agency Comment Spec In Lab Larry Larkin MD CHEMISTRY ORDERABLES [facility] [place] [address] * (ABNORMAL) Comprehensive metabolic panel (non-fasting) (10/05/2015 8:00 AM EDT) Glucose 137 65 - 199 mg/dL [facility] Comment:Diabetes: >=200 mg/d L plus symptoms Blood Urea Nitrogen 21(H) 10 - 20 mg/dL [facility] Creatinine 1.45 0.80 - 1.50 mg/dL [facility] Comment: Please note that the pediatric reference intervals supplied above were not validated at [facility]. Results from pediatric patients should be interpreted in conjunction to the patient's age, height and muscle mass. Sodium 137 135 - 145 mmol/L [facility] Potassium 4.0 3.5 - 5.0 mmol/L [facility] Protein, Total 6.8 6.1 - 8.0 gm/dL [facility] Albumin 3.9 3.2 - 5.2 gm/dL [facility] Aspartate Aminotransferase 17 0 - 39 unit/L [facility] Alanine Aminotransferase 24 0 - 55 unit/L [facility] Alkaline Phosphatase 85 40 - 120 unit/L [facility] Bilirubin, Total 0.7 0.2 - 1.3 mg/dL [facility] Bilirubin, Direct 0.1 0.0 - 0.3 mg/dL [facility] Est Glomerular Filtration Rate 49(L) >=60 [facility] Comment: This [...] the following links into your internet browser. [email or web address] Blood specimen (specimen) 10/05/2015 8:00 AM EDT 10/05/2015 9:07 AM EDT Narrative Resulting Agency Comment Spec In Lab Larry Larkin MD CHEMISTRY ORDERABLES Performing Organization Address [facility] Co de Phone Number [facility] [place] [address] * Cholesterol, total (10/05/2015 8:00 AM EDT) Cholesterol, Total 193 <=199 mg/dL [facility] Larkin MD CHEMISTRY ORDERABLES Performing Organization Address City/[facility]/ZIP Co de Phone Number [facility] [place] [address] documented in this encounter Visit Diagnoses Diagnosis H/O kidney transplant Kidney replaced by transplant documented in this encounter Care Teams Perinatal Coordinator Relationship Specialty Start Date End Date Urbano Denis DO [address] [place] [address] PCP - General 09/03/12 03/17/22 Ruchi Valles RN Nurse Clinic Transplant Surgery 07/30/15 documented as of this encounter
--- OUTSIDE RECORDS SUMMARY | 2024-04-04 14:15 | XMS_ITS | Encounter Summary ---
[place] [address] Care Team Providers Care Sanitor Name Role Phone Urbano Denis DO Primary Care Provider [phone] Reason for Visit * Surgical (Routine) - Closed Specialty Diagnoses / Procedures Referred By Humberto flor Referred To Contact Urology Procedures cysto stent removal Franko Larkin MD [facility] [place] [address] [facility] [place] [address] Referral ID Status Reason Start Date Expiration Date Visits Re quested Visits Authorized [id number] Closed 09/17/2015 09/16/2016 1 1 Encounter Details Date Type Department Care Team (Late st Contact Info) Description 10/26/2015 11:00 AM EDT [place] [address] Alex Patten MD [address] [place] [address] H/O kidney transplant Social History Tobacco Use [...] and cola. You do not need to surour21 ounces of water today. Urination: You will likely have a small amount of blood in your urine for the next several days. This is normal; however, if you are passing large amounts of blood clots or are unable to void please call our office at [phone] before 5PM or [phone] after hours. Please call if: * you have copious blood in your urine * fevers greater than 101.3 F * you are unable to void The number for questions is [phone] before 5 PM weekdays and [phone] after 5 PM and weekends. Follow-up: With [...] PM EDT Office Visit Cardiology at [address] [address] Jay Urban MD [facility] [address] 04/15/2024 10:00 AM EDT Hospital Encounter Non-Invasive [place] [phone] Arrived Scheduled Orders Name Type Priority Associated Diagnoses Orde r Schedule Cystoscopy PROCEDURE Routine H/O kidney transplant Ordered: 10/26/2015 documented as of this encounter Visit Diagnoses Diagnosis H/O kidney transplant Kidney replaced by transplant documented in this encounter Care Teams Sanitor Relationship Specialty Start Date End Date Urbano Denis DO [address] [place] [address] PCP - General 09/03/12 03/17/22 Ruchi Valles RN Nurse Clinic Transplant Surgery 07/30/15 documented as of this encounter
--- OUTSIDE RECORDS SUMMARY | 2024-04-04 14:15 | XMS_ITS | Encounter Summary ---
Author Organization [facility] [address] Care Team Providers Care Commercial Credit Portfolio Manager Name Role Phone Urbano Denis DO Primary Care Provider Encounter Details Date Type Department Care Team (Late st Contact Info) Description 10/12/2015 Telephone [place] [phone] Marisela Metcalf, RN Social History Tobacco Use [...] PM EDT Office Visit Cardiology at [address] [phone] Jay Urban MD [facility] [place] [address] 04/15/2024 10:00 AM EDT Hospital Encounter Non-Invasive Cardiology [place] [phone] Arrived documented as of this encounter Visit Diagnoses Not on filedocumented in this encounter Care Teams Commercial Credit Portfolio Manager Relationship Specialty Start Date End Date Urbano Denis DO [address] [place] [address] [address] PCP - General 09/03/12 03/17/22 Ruchi Valles RN Nurse Clinic Transplant Surgery 07/30/15 documented as of this encounter
--- OUTSIDE RECORDS SUMMARY | 2024-04-04 14:15 | XMS_ITS | Encounter Summary ---
[place] [address] Care Team Providers Care Electroplating Worker Name Role Phone AdeelUrbano toscano Primary Care Provider [phone] Encounter Details Date Type Department Care Team (Late st Contact Info) Description 10/01/2015 Telephone [place] [address] Samia Escalante, RN Social History [...] message asking for call-back. Samia Escalante RN [facility] Solid Organ Transplant [phone] (Pager: [phone]) documented in this encounter Plan of Treatment Upcoming Encounters Date Type Department Care Team (Late st Contact Info) Description 04/08/2024 1:40 PM EDT Office Visit Cardiology at [address] [phone] Jay Urban MD [facility] [place] [address] 04/15/2024 10:00 AM EDT Hospital Encounter Non-Invasive Cardiology Lab [facility] [place] [address] Arrived documented as of this encounter Visit Diagnoses Not on filedocumented in this encounter Care Teams Electroplating Worker Relationship Specialty Start Date End Date Urbano Denis DO [address] [place] [address] PCP - General 09/03/12 03/17/22 Hai STANLEY,Ruchi Nurse Clinic Transplant Surgery 07/30/15 documented as of this encounter
--- OUTSIDE RECORDS SUMMARY | 2024-04-04 14:15 | XMS_ITS | Encounter Summary ---
Author Organization [facility] [place] [address] Care Team Providers Care Emt Name Role Phone Urbano Denis DO Primary Care Provider [phone] Encounter Details Date Type Department Care Team (Late st Contact Info) Description 10/05/2015 Telephone [place] [phone] Marisela Metcalf, RN Social History Tobacco Use [...] PM EDT Office Visit Cardiology at [address] [phone] Jay Urban MD [facility] [place] [address] 04/15/2024 10:00 AM EDT Hospital Encounter Non-[place]vasive [place] [phone] Arrived documented as of this encounter Visit Diagnoses Not on filedocumented in this encounter Care Teams Emt Relationship Specialty Start Date End Date Urbano Denis DO [address] [place] [address] [address] PCP - General 09/03/12 03/17/22 Ruchi Valles RN Nurse Clinic Transplant Surgery 07/30/15 documented as of this encounter
--- OUTSIDE RECORDS SUMMARY | 2024-04-04 14:15 | XMS_ITS | Encounter Summary ---
Author Organization [facility] Address [place] [address] Care Team Providers Care Block Press Operator Name Role Phone Adeel Urbano KIRBY Primary Care Provider [phone] Reason for Visit * Reason Comments Kidney Transplant Kidney Transplant Follow-up Immunotherapy Encounter Details Date Type Department Care Team (Latest Contact Info) Description 11/08/2015 10:00 AM EDT Office Visit [place] [address] Tal Eagle MD [facility] [place] [address] Kidney replaced by transplant; Aftercare following organ [...] T, RD - 11/08/2015 3:13 PM EDT [facility] Post Transplant Nutrition Follow Up Date: 11/08/2015 Patient: Ethel Akins Transplant Date: 09/16/15 [place] organ UNOS diagnosis: Transplant: Mr. Ethel Akins [...] Value Date CHLPL 187 11/08/2015 Assessment: This program writer provided patient with a copy of [...] Eagle MD - 11/08/2015 2:19 PM EDT [facility] Transplant Nephrology Follow Up Date: 11/08/15 Patient: [...] for diabetics, every 5 for non diabetics [place] kidney ultrasound looking for renal cell CA, [...] Dr. Shagufta Wagner, DO Nephrology Fellow Pager #[phone] I reviewed all of the above findings and assessment of Dr. Wagner, examined the patient and formulated the recommendations which accurately reflect mine. documented in this encounter Plan of Treatment Upcoming Encounters Date Type Department Care Team (Late st Contact Info) Description 04/08/2024 1:40 PM EDT Office Visit Cardiology at [address] [phone] Jay Urban MD [facility] [place] [address] 04/15/2024 10:00 AM EDT Hospital Encounter Non[place] [address] Arrived documented as of this [...] MD URINE ORDERABLES [facility] [place] [address] * (ABNORMAL) Urinalysis with reflex Culture (11/08/2015 [...] HOSPITAL LABORATORY Leukocytes, Urine Dipstick Trace(A) Negative [facility] LABORATORY Appearance, Urine Dipstick Clear Clear [facility] Specific [place] Urine Automated 1.016 1.002 - 1.030 [facility] [...] MD URINE ORDERABLES [facility] [place] [address] * (ABNORMAL) Comprehensive metabolic panel (non-fasting) (11/08/2015 8:49 AM EDT) Glucose 162 65 - 199 mg/dL [facility] Comment:Diabetes: >=200 mg/d L plus symptoms Blood Urea Nitrogen 23(H) 10 - 20 mg/dL [facility] Creatinine 1.89(H) 0.80 - 1.50 mg/dL [facility] Comment: Please note that the pediatric reference intervals supplied above were not validated at [facility]. Results from pediatric patients should be interpreted [...] the following links into your internet browser. [email or web address] Blood specimen (specimen) 11/08/2015 8:49 AM EDT 11/08/2015 8:53 AM EDT Narrative Resulting Agency Comment Spec In Lab Tal Eagle MD CHEMISTRY ORDERAB LES Performing Organization Address City/[facility]/ZIP Co de Phone Number [facility] [place] [phone] * Magnesium (11/08/2015 8:49 AM EDT) Magnesium 0.69 0.69 - 1.07 mmol/L [facility] Blood specimen (specimen) 11/08/2015 8:49 AM EDT 11/08/2015 8:53 AM EDT Narrative Resulting Agency Comment Spec In Lab Tal Eagle MD CHEMISTRY ORDERAB LES [facility] [place] [address] * Phosphorus (11/08/2015 8:49 AM EDT) Phosphorus 2.7 2.5 - 4.5 mg/dL [facility] Blood specimen (specimen) 11/08/2015 8:49 AM EDT 11/08/2015 8:53 AM EDT Narrative Resulting Agency Comment Spec In Lab Tal Eagle MD CHEMISTRY ORDERAB LES Performing Organization Address City/[facility]/ZIP Co de Phone Number [facility] [place] [address] * (ABNORMAL) Uric acid (11/08/2015 8:49 AM EDT) Uric Acid 9.8(H) 3.5 - 8.5 mg/dL [facility] Blood specimen (specimen) 11/08/2015 8:49 AM EDT 11/08/2015 8:53 AM EDT Narrative Resulting Agency Comment Spec In Lab Tal Eagle MD CHEMISTRY ORDERAB LES Performing Organization Address [facility] Co de Phone Number [facility] [place] [address] * Tacrolimus level (11/08/2015 8:49 AM EDT) Tacrolimus 12.7 ng/mL [facility] Comment:Trough therapeutic: 5-15 ng/mL Blood specimen (specimen) 11/08/2015 8:49 AM EDT 11/08/2015 11:06 AM EDT Narrative Resulting Agency Comment Spec In Lab Tal Eagle MD CHEMISTRY ORDERAB LES Performing Organization Address City/[facility] Co de Phone Number [facility] [place] [address] * Reticulocyte Count (11/08/2015 8:49 AM EDT) [...] Organization Address [facility] Co de Phone Number [facility] [place] [address] * Cholesterol, total (11/08/2015 8:49 AM EDT) Cholesterol, Total 187 <=199 mg/dL [facility] Comment: Recommendations of the NCEP Adult Treatment Panel for the following risk cutoff thresholds for the [place] population: Desirable: <200 mg/dL Borderline High: 200-239 mg/dL High: > or = 240 mg/dL Blood specimen (specimen) 11/08/2015 8:49 AM EDT 11/08/2015 8:53 AM EDT Narrative Resulting Agency Comment Spec In Lab Tal Eagle MD CHEMISTRY ORDERAB LES Performing Organization Address [facility] Co de Phone Number [facility] [place] [address] documented in this encounter Visit Diagnoses Diagnosis Kidney replaced by transplant Aftercare following organ transplant Prophylactic immunotherapy Need for prophylactic immunotherapy documented in this encounter Care Teams Block Press Operator Relationship Specialty Start Date End Date Urbano Denis DO [address] [place] [address] PCP - General 09/03/12 03/17/22 Ruchi Valles RN Nurse Clinic Transplant Surgery 07/30/15 documented as of this encounter
--- OUTSIDE RECORDS SUMMARY | 2024-04-04 14:15 | XMS_ITS | Encounter Summary ---
Author Organization [facility] [place] [address] Care Team Providers Care Community Director Name Role Phone Urbano Denis DO Primary Care Provider Encounter Details Date Type Department Care Team (Late st Contact Info) Description 10/08/2015 Telephone [place] [phone] Samia Escalante, RN Social History Tobacco Use [...] that Yash did well over the weekend. [place] fairly fatigued washed out for the better part of yesterday, but symptoms subsided overnight. Pain is getting better without narcotics, and pt is going to drive today for the first time. Pt due back in clinic Thursday with Dr. Amaro. Pt stated understanding of plan of care. No further questions at this time. Advised to call with additional concerns. Samia Escalante, RN [facility] Solid Organ Transplant [phone] (Pager: [phone]) documented in this encounter Plan of Treatment Upcoming Encounters Date Type Department Care Team (Late st Contact Info) Description 04/08/2024 1:40 PM EDT Office Visit Cardiology at [address] [phone] Jay Urban MD [facility] [place] [address] 04/15/2024 10:00 AM EDT Hospital Encounter Non-Invasive [place] [phone] Arrived documented as of this encounter Visit Diagnoses Not on filedocumented in this encounter Care Teams Community Director Relationship Specialty Start Date End Date Urbano Denis DO [address] [facility] [address] [place] [address] PCP - General 09/03/12 03/17/22 Hai STANLEY,Ruchi Nurse Clinic Transplant Surgery 07/30/15 documented as of this encounter
--- OUTSIDE RECORDS SUMMARY | 2024-04-04 14:15 | XMS_ITS | Encounter Summary ---
[place] [address] Care Team Providers Care Oil Well Services Dispatcher Name Role Phone Urbano Denis DO Primary Care Provider Encounter Details Date Type Department Care Team (Latest Contact Info) Description 11/02/2015 7:38 PM EDT - 11/02/2015 11:59 PM EDT [place] [address] Discharge Disposition: Home Social History Tobacco Use [...] PM EDT Office Visit Cardiology at [address] [phone] Jay Urban MD [facility] [place] [address] 04/15/2024 10:00 AM EDT Hospital Encounter Non-[place] [phone] Arrived documented as of this encounter Procedures Procedure Name Priority Date/Time Associated Diagnosis Comments TACROLIMUS LEVEL Routine 11/02/2015 9:36 AM EDT documented in this encounter Results * Tacrolimus level (11/02/2015 9:36 AM EDT) Tacrolimus 13.2 ng/mL [facility] Comment:Trough therapeutic: 5-15 ng/mL Blood specimen (specimen) Venous Draw / Unknown 11/02/2015 9:36 AM EDT 11/05/2015 7:57 AM EDT Narrative Resulting Agency Comment Spec In Lab Tal Eagle MD CHEMISTRY ORDERAB LES [facility] [place] [phone] documented in this encounter Visit Diagnoses Not on filedocumented in this encounter Care Teams [employer] Dispatcher Relationship Specialty Start Date End Date Urbano Denis DO [address] [place] [address] PCP - General 09/03/12 03/17/22 Ruchi Valles RN Nurse Clinic Transplant Surgery 07/30/15 documented as of this encounter
--- OUTSIDE RECORDS SUMMARY | 2024-04-04 14:15 | XMS_ITS | Encounter Summary ---
Author Organization [facility] [place] [address] Care Team Providers Care Senior Reliability Engineer Name Role Phone Urbano Denis DO Primary Care Provider [phone] Encounter Details Date Type Department Care Team (Late st Contact Info) Description 09/28/2015 10:30 AM EDT Office Visit [place] [address] Jennifer Amaro MD [facility] [place] [address] H/O kidney transplant Social History Tobacco Use [...] Bell, RD - 09/28/2015 1:54 PM EDT [facility] Post Transplant Nutrition Follow Up Date: 09/28/2015 Patient: Cody Bolden Transplant Date: 09/16/15 [place] organ UNOS diagnosis: Transplant: Mr. Cody Bolden [...] Value Date CHLPL 186 09/28/2015 Assessment: This lead technical writer provided patient with a copy [...] end time 1:15p. Juan Daniel Escalante RN [facility] Solid Organ Transplant [phone] (Pager: [phone]) * Jennifer Amaro MD - 09/28/2015 11:06 [...] EXTREMITY performed by Jennifer Amaro MD at [facility] OR ??? Pro transplantation of kidney N/A 09/16/2015 @KIDNEY TRANSPLANT, WITHOUT RECIPIENT NEPHRECTOMY performed by Franko Larkin MD at [facility] OR ??? Pro transplant, prep cadaver renal graft N/A 09/16/2015 @PREPARATION CADAVERIC RENAL ALLOGRAFT performed by Franko Larkin MD at [facility] OR ??? N/A 09/16/2015 ORGAN ACQUISITION RENAL, CADAVERIC performed by Franko Larkin MD at [facility] OR Family History: No family history on [...] PM EDT Office Visit Cardiology at [address] [phone] Jay Urban MD [facility] [place] [address] 04/15/2024 10:00 AM EDT Hospital Encounter [place] [address] Arrived documented as of this [...] * Urine culture (09/28/2015 9:35 AM EDT) Pathologist [facility] Urine Culture No growth (Less than 1,000 cfu/ml). [facility] Urine specimen obtained by clean catch procedure (specimen) 09/28/2015 9:35 AM EDT 09/28/2015 10:46 AM EDT Narrative Resulting Agency Comment Spec In Lab Jennifer Amaro MD MICROBIOLOGY - GENERAL ORDERABLES Performing Organization Address City/[facility]/ZIP Co de Phone Number [facility] [place] [address] * Green Tube HOLD (09/28/2015 9:35 AM EDT) Pathologist [facility] Green Hold Sample in lab. [facility] Blood specimen (specimen) Venous Draw / Unknown 09/28/2015 9:35 AM EDT 09/28/2015 9:58 AM EDT Jennifer Amaro MD CHEMISTRY ORDE RABLES Performing Organization Address City/[facility]/ZIP Co de Phone Number [facility] [place] [place] [address] * (ABNORMAL) Differential, Automated (09/28/2015 9:35 AM EDT) Neutrophil % 74.3 % [facility] Neutrophil Absolute 8.44(H) 1.50 - 6.30 x10(3)/mc L [facility] Lymph % 18.8 % [facility] Lymphocytes Abs 2.1 1.0 - 3.6 x10(3)/[facility] LABORATORY Monocyte % 3.8 % [facility] Monocyte Abs 0.4 0.2 - 1.0 x10(3)/[facility] LABORATORY Eos % 1.8 % [facility] Eosinophils Abs 0.2 0.0 - 0.5 x10(3)/[facility] LABORATORY Basophil % 0.4 % [facility] Baso Absolute 0.0 0.0 - 0.2 x10(3)/[facility] LABORATORY Immature Gran % 0.90 % [facility] Comment: Immature granulocytes(IG's)percentage and absolute count will include metamyelocytes, myelocytes, and promyelocytes. Blood smears from CBCs yielding IG's will be scanned manually for concordance. If this scan disagrees with the automated IG or if promyelocytes are noted, a manual differential will be performed. Immature Gran Absolute 0.10(H) 0.00 - 0.05 x10(3)/[facility] LABORATORY Blood specimen (specimen) 09/28/2015 9:35 AM EDT 09/28/2015 9:56 AM EDT Narrative Resulting Agency Comment Spec In Lab Jennifer Amaro MD HEMATOLOGY ORD ERABLES [facility] [place] [place] [address] * (ABNORMAL) Hemogram (09/28/2015 9:35 AM EDT) White Blood Cell 11.4(H) 4.0 - 10.0 x10(3)/[facility] LABORATORY Red Blood Cell 3.69(L) 4.63 - 6.08 x10(6)/[facility] LABORATORY Hemoglobin 11.5(L) 13.7 - 17.5 gm/dL [facility] Hematocrit 34.2(L) 40.0 - 51.0 % [facility] Mean Cell Volume 92.7(H) 79.0 - 92.0 fL [facility] Mean Cell Hemoglobin 31.2 25.6 - 32.2 pg [facility] Mean Cell Hemoglobin Concentration 33.6 32.0 - 36.5 gm/dL [facility] Platelet 266 145 - 370 x10(3)/mc L [facility] RDW Standard Deviation 49.6(H) 35.0 - 46.0 fL [facility] RDW coefficient of variation 14.9(H) 10.9 - 14.4 % [facility] Mean Platelet Volume 9.5 9.0 - 12.0 fL [facility] Blood specimen (specimen) 09/28/2015 9:35 AM EDT 09/28/2015 9:56 AM EDT Narrative Resulting Agency Comment Spec In Lab Jennifer Amaro MD HEMATOLOGY ORD MILAGROS Performing Organization Address City/[facility]/ZIP Co de Phone Number [facility] [address] * Tacrolimus level (09/28/2015 9:35 AM EDT) Tacrolimus 15.1 ng/mL [facility] Comment: Called by: payton, Read back by: jamil [phone], Date/Time:09/28/15 12:21. Trough therapeutic: ??5-15 ng/mL Blood specimen (specimen) 09/28/2015 9:35 AM EDT 09/28/2015 11:12 AM EDT Narrative Resulting Agency Comment Spec In Lab Jennifer Amaro MD CHEMISTRY ORDTiny JENNINGS Performing Organization Address City/[facility]/ZIP Co de Phone Number [facility] [address] * (ABNORMAL) Urinalysis with reflex Culture (09/28/2015 [...] [facility] pH, Urn (dipstick) 5.0 5.0 - 8.0 [facility] Blood, Urine Dipstick Large(A) Negative mg/dL [facility] Ketone, Urine Dipstick Negative Negative mg/dL [facility] Nitrite, Urine Dipstick Negative Negative [facility] Leukocytes, Urine Dipstick Trace(A) Negative [facility] Appearance, Urine Dipstick Clear Clear [facility] Specific [place] Urine Automated 1.025 1.002 - 1.030 [facility] Color, Urine Dipstick Yellow Yellow [facility] RBC, Urine 70(H) 0 - 3 /HPF [facility] WBC, Urine 13(H) 0 - 3 /HPF [facility] Reflex to Culture Yes [facility] Urine specimen obtained by clean catch procedure (specimen) 09/28/2015 9:35 AM EDT 09/28/2015 9:57 AM EDT Narrative Resulting Agency Comment Spec In Lab Jennifer Amaro MD URINE ORDERABL ES [facility] [address] * (ABNORMAL) Reticulocyte Count (09/28/2015 9:35 AM EDT) Reticulocyte % 4.7(H) 0.5 - 2.4 % [facility] Retic Abs # 0.170(H) 0.027 - 0.095 x10(6)/mc L [facility] Immature Retic% 8.0 2.3 - 15.9 % [facility] Reticulated Hgb 37.1 28.5 - 38.9 pg [facility] Immature Plt % 1.2 0.0 - 7.4 % [facility] Blood specimen (specimen) 09/28/2015 9:35 AM EDT 09/28/2015 9:56 AM EDT Narrative Resulting Agency Comment Spec In Lab Jennifer Amaro MD HEMATOLOGY ORD ERABLES Performing Organization Address City/[facility]/[place] [address] * Uric acid (09/28/2015 9:35 AM EDT) Uric Acid 4.9 3.5 - 8.5 mg/dL [facility] Blood specimen (specimen) 09/28/2015 9:35 AM EDT 09/28/2015 9:56 AM EDT Narrative Resulting Agency Comment Spec In Lab Jennifer Amaro MD CHEMISTRY ORDTiny JENNINGS Performing Organization Address City/[facility] [place] [address] * Phosphorus (09/28/2015 9:35 AM EDT) Phosphorus 4.5 2.5 - 4.5 mg/dL [facility] Blood specimen (specimen) 09/28/2015 9:35 AM EDT 09/28/2015 9:56 AM EDT Narrative Resulting Agency Comment Spec In Lab Jennifer Amaro MD CHEMISTRY ORDTiny JENNINGS Performing Organization Address City/[facility]/ZIP Co de Phone Number [facility] [address] * (ABNORMAL) Magnesium (09/28/2015 9:35 AM EDT) Magnesium 0.48(L) 0.69 - 1.07 mmol/L [facility] Blood specimen (specimen) 09/28/2015 9:35 AM EDT 09/28/2015 9:56 AM EDT Narrative Resulting Agency Comment Spec In Lab Jennifer Amaro MD CHEMISTRY ORDTiny Reality DigitalELNORE Performing Organization Address City/[facility] Co de Phone Number [facility] [address] * Cholesterol, total (09/28/2015 9:35 AM EDT) Cholesterol, Total 186 <=199 mg/dL [facility] Comment: Recommendations of the NCEP Adult Treatment Panel for the following risk cutoff thresholds for the [place]alt[place] population: Desirable: <200 mg/dL Borderline High: 200-239 mg/dL High: > or = 240 mg/dL Blood specimen (specimen) 09/28/2015 9:35 AM EDT 09/28/2015 9:56 AM EDT Narrative Resulting Agency Comment Spec In Lab Jennifer Amaro MD CHEMISTRY ORDLinkoveryLENORE Performing Organization Address [facility]/ZIP Co de Phone Number [facility] [address] * (ABNORMAL) Comprehensive metabolic panel (non-fasting) (09/28/2015 9:35 AM EDT) Glucose 148 65 - 199 mg/dL [facility] Comment:Diabetes: >=200 mg/d L plus symptoms Blood Urea Nitrogen 31(H) 10 - 20 mg/dL [facility] Creatinine 1.50 0.80 - 1.50 mg/dL [facility] Comment: Please note that the pediatric reference intervals supplied above were not validated at [facility]. Results from pediatric patients should be interpreted in conjunction to the patient's age, height and muscle mass. Sodium 136 135 - 145 mmol/L [facility] Potassium 4.9 3.5 - 5.0 mmol/L [facility] [...] mg/dL [facility] Protein, Total 6.7 6.1 - 8.0 gm/dL [facility] Albumin 3.7 3.2 - 5.2 gm/dL [facility] Aspartate Aminotransferase 20 0 - 39 unit/L [facility] Alanine Aminotransferase 37 0 - 55 unit/L [facility] Alkaline Phosphatase 72 40 - 120 unit/L [facility] Bilirubin, Total 0.7 0.2 - 1.3 mg/dL [facility] Bilirubin, Direct 0.2 0.0 - 0.3 mg/dL [facility] Est Glomerular Filtration Rate 47(L) >=60 [facility] Comment: This [...] the following links into your internet browser. [email or web address] Blood specimen (specimen) 09/28/2015 9:35 AM EDT 09/28/2015 9:56 AM EDT Narrative Resulting Agency Comment Spec In Lab Jennifer Amaro MD CHEMISTRY ROCHELLE JENNINGS [facility] [address] documented in this encounter Visit Diagnoses Diagnosis H/O kidney transplant Kidney replaced by transplant documented in this encounter Care Teams Senior Reliability Engineer Relationship Specialty Start Date End Date Urbano Denis DO [address] [place] [address] PCP - General 09/03/12 03/17/22 Hai STANLEY,Ruchi Nurse Clinic Transplant Surgery 07/30/15 documented as of this encounter
--- OUTSIDE RECORDS SUMMARY | 2024-04-04 14:15 | XMS_ITS | Encounter Summary ---
Author Organization [facility] [place] [address] Care Team Providers Care Steam Frame Operator Name Role Phone Urbano Denis DO Primary Care Provider [phone] Encounter Details Date Type Department Care Team (Late st Contact Info) Description 10/26/2015 9:00 AM EDT Office Visit [place] [address] Larry Larkin MD [facility] [place] [address] H/O kidney transplant Social History Tobacco Use [...] NEPHRECTOMY performed by Larry Larkin MD at [facility] OR ??? Pro transplant, prep cadaver renal graft N/A 09/16/2015 @PREPARATION CADAVERIC RENAL ALLOGRAFT performed by Larry Larkin MD at [facility] OR ??? N/A 09/16/2015 ORGAN ACQUISITION RENAL, CADAVERIC performed by Larry Larkin MD at [facility] OR Family History: No family [...] Bell, RD - 10/26/2015 3:54 PM EDT [facility] Post Transplant Nutrition Follow Up Date: 10/26/2015 Patient: Cody Bolden Transplant Date: 09/16/15 [place] organ UNOS diagnosis: Transplant: Mr. Cody Bolden [...] Value Date CHLPL 261* 10/26/2015 Assessment: This conventional mortgage underwriter provided patient with a copy of [...] PM EDT Office Visit Cardiology at [address] [phone] Jay Urban MD [facility] [place] [address] 04/15/2024 10:00 AM EDT Hospital Encounter Non[place] [phone] Arrived documented as of this encounter Visit Diagnoses Diagnosis H/O kidney transplant Kidney replaced by transplant documented in this encounter Care Teams Steam Frame Operator Relationship Specialty Start Date End Date Urbano Denis DO [address] [place] [address] PCP - General 09/03/12 03/17/22 Ruchi Vlales RN Nurse Clinic Transplant Surgery 07/30/15 documented as of this encounter
--- OUTSIDE RECORDS SUMMARY | 2024-04-04 14:15 | XMS_ITS | Encounter Summary ---
Author Organization [facility] [place] [address] Care Team Providers Care Hand Baseball Sewer Name Role Phone Urbano Denis DO Primary Care Provider Encounter Details Date Type Department Care Team (Late st Contact Info) Description 09/26/2015 Telephone [place] [phone] Samia Escalante, RN Social History Tobacco Use [...] tomorrow to check in. Samia Escalante, RN [facility] [place]plant [phone] (Pager: [phone]) documented in this encounter Plan of Treatment Upcoming Encounters Date Type Department Care Team (Late st Contact Info) Description 04/08/2024 1:40 PM EDT Office Visit Cardiology at [address] [phone] Jay Urban MD [facility] [place] [address] 04/15/2024 10:00 AM EDT Hospital Encounter Non-[place] [phone] Arrived documented as of this encounter Visit Diagnoses Not on filedocumented in this encounter Care Teams Hand Baseball Sewer Relationship Specialty Start Date End Date Urbano Denis DO [address] [place] [address] PCP - General 09/03/12 03/17/22 Ruchi Valles RN Nurse Clinic Transplant Surgery 07/30/15 documented as of this encounter
--- OUTSIDE RECORDS SUMMARY | 2024-04-04 14:16 | XMS_ITS | Encounter Summary ---
Author Organization [facility] [place] [address] Care Team Providers Care Glue Spreader Name Role Phone Urbano Denis DO Primary Care Provider [phone] Encounter Details Date Type Department Care Team (Late st Contact Info) Description 09/20/2015 Notes Only Solid Organ Transplant at [facility] [place] [address] Chapin Lehman, DEDE Social History Tobacco Use [...] PM EDT Office Visit Cardiology at [address] [phone] Jay Urban MD [facility] [place] [address] 04/15/2024 10:00 AM EDT Hospital Encounter Non-[place] [address] Arrived documented as of this encounter Visit Diagnoses Not on filedocumented in this encounter Care Teams Glue Spreader Relationship Specialty Start Date End Date Urbano Denis DO [address] [place] [address] [address] PCP - General 09/03/12 03/17/22 Ruchi Valles RN Nurse Clinic Transplant Surgery 07/30/15 documented as of this encounter
--- OUTSIDE RECORDS SUMMARY | 2024-04-04 14:16 | XMS_ITS | Encounter Summary ---
Author Organization [facility] [place] [address] Care Team Providers Care Glove Stitcher Name Role Phone AdeelUrbano Primary Care Provider [phone] Reason for Visit * Auth/Cert Specialty Diagnoses / Procedures Referred By Humberto flor Referred To Contact Diagnoses RENAL FAILURE Kidney transplant. UNOS #[id number] Procedures PRO TRANSPLANTATION OF KIDNEY PRO TRANSPLANT, PREP CADAVER RENAL GRAFT @KIDNEY TRANSPLANT, WITHOUT RECIPIENT NEPHRECTOMY @PREPARATION CADAVERIC RENAL ALLOGRAFT Referral ID Status Reason Start Date Expiration Date Visits Re quested Visits Authorized [id number] 1 1 Encounter Details Date Type Department Care Team (Late st Contact Info) Description 09/16/2015 11:38 AM EDT Anesthesia Event [place] [address] Maxi Garcia MD [facility] [place] [place] [address] Sara Zhong MD [facility] [place] [address] Anesthesia Record Procedure Summary Procedure Name Responsible [...] cephalic vein right (lateral side of arm); nczp-zkx-kwtymi catheter system; 18 gauge, 1 in length; [...] Time: 1503 09/16/15 1152 by Miller Seals, CRIS 09/16/15 1503 by Miller Seals, CRIS Arterial Line 09/16/15; 1205; radi al artery; 20 gauge; Arnel; Sterile Prep, Sterile Gloves; 09/17/15; 1210 09/16/15 1205 by Miller Seals, MINER OPERATOR 09/17/15 1210 by Kalyani Fuchs RN (RETIRED) Peripheral IV Line - Single Lumen 09/16/15; 1210; metacarpal vein right (top of hand); wkzj-[id number] catheter system; 16 gauge; MD Jose; leaking; 09/18/15; 1223 09/16/15 1210 by Miller Seals, MINER OPERATOR 09/18/15 1223 by Sonu Lara CRNA (RETIRED) Peripheral IV Line - Single Lumen 09/16/15; 1210; median vein right (underside of arm); [id number] catheter system; 16 gauge; MD Jose; no [...] by Santosh Higginbotham, JADEN 09/20/15 1330 by Pauline La, JADEN documented in this encounter Social [...] Garcia MD - 09/16/2015 3:41 PM EDT [facility] [place] Department of Anesthesiology Post-procedure Note Patient: Cody Bolden Procedure Summary Date Anesthesia Start Anesthesia Stop Room / Location 09/16/15 [id number] [facility] OR [facility] MAIN OR Procedure Diagnosis Surgeon Responsible Provider @KIDNEY TRANSPLANT, WITHOUT RECIPIENT NEPHRECTOMY (N/A Flank); @PREPARATION CADAVERIC RENAL ALLOGRAFT (N/A ) (Kidney transplant. UNOS #[id number]) Franko Larkin MD Allen, George K, MD All Anesthesia Providers: Anesthesiologist: Maxi Garcia MD MINER OPERATOR: Miller Seals CRNA Last (1hr) Vitals: BP Temp Pulse Resp SpO2 [facility] Level of Consciousness: Conscious but Sleepy [...] canula. * Anesthesia Preprocedure Evaluation - Sara Xiao - 09/16/2015 7:51 AM EDT Images from [...] at [facility] MAIN OR History Substance Use Topics [...] and spouse whom. Plan discussed with attending, MINER OPERATOR and resident. PAT Staff Note documented in this encounter Plan of Treatment Upcoming Encounters Date Type Department Care Team (Late st Contact Info) Description 04/08/2024 1:40 PM EDT Office Visit Cardiology at [address] [phone] Jay Urban MD [facility] [place] [address] 04/15/2024 10:00 AM EDT Hospital Encounter Non-[place] [address] Arrived documented as of this [...] Indication (State the indication in Comments field) / transplant Given 09/16/2015 12:21 PM EDT 1 g cisatracurium (NIMBEX) 2 mg/mL bolus injection (Anesthesia) PRN, Starting on 09/16/15 at 1157, Until 09/16/15 at 1519, Anesthesia Intra-op, Routine Given 09/16/2015 2:02 PM EDT 6 mg Given 09/16/2015 1:29 PM EDT 4 mg Given 09/16/2015 1:20 PM EDT 4 mg fentaNYL 50 mcg/mL multi-dose injection PRN, Starting on Thu09/16/15 at 1150, Until Thu09/16/15 at 1519, Pain, Anesthesia Intra-op, Routine Given 09/16/2015 3:12 PM EDT 50 mcg Given 09/16/2015 2:51 PM EDT 50 mcg Given 09/16/2015 12:38 PM EDT 100 mcg furosemide (LASIX) injection PRN, Starting on Thu09/16/15 at 1321, Until Thu09/16/15 at 1519, Anesthesia Intra-op, Routine Given 09/16/2015 [...] glycopyrrolate (ROBINUL) multi-dose injection PRN, Starting on Thu09/16/15 at 1447, Until Thu09/16/15 at 1519, Anesthesia Intra-op, Routine Given 09/16/2015 2:47 PM EDT 0.9 mg labetalol (NORMODYNE,TRANDATE) multi-dose injection PRN, Starting on Thu09/16/15 at 1445, Until Thu09/16/15 at 1519, High Blood Pressure, Anesthesia Intra-op, Routine Given 09/16/2015 2:45 PM EDT 5 mg mannitol (less than 50 grams) 25% injection PRN, Starting on Thu09/16/15 at 1321, Until Thu09/16/15 at 1519, Anesthesia Intra-op, Routine Given 09/16/2015 1:21 PM EDT 25 g methylPREDNISolone sodium succinate (PF) (solu-MEDROL) 375 mg in sodium chloride 0.9% 56 mL 375 mg, Intravenous, DIE CASTING MACHINE OPERATOR TO O.R., 1 dose, On Thu09/16/15 at 1015, Administer over 30 Minutes, Day of Surgery (Day of Procedure) Given 09/16/2015 11:58 AM EDT 375 g neostigmine (PROSTIGMINE) multi-dose injection PRN, Starting on Thu09/16/15 at 1447, Until Thu09/16/15 at 1519, Anesthesia Intra-op, Routine Given 09/16/2015 2:47 PM EDT 5 mg ondansetron (ZOFRAN) injection PRN, Starting on Thu09/16/15 at 1421, Until Thu09/16/15 at 1519, Nausea, Anesthesia Intra-op, Routine Given 09/16/2015 2:21 PM EDT 4 mg propofol (DIPRIVAN) 10 mg/mL bolus injection (Anesthesia) PRN, Starting on Thu09/16/15 at 1150, Until Thu09/16/15 at 1519, Anesthesia Intra-op Given 09/16/2015 11:52 AM EDT 50 mg Given 09/16/2015 11:50 AM EDT 150 mg sodium chloride 0.9% infusion CONTINUOUS PRN, Starting on Thu09/16/15 at 1138, Until Thu09/16/15 at 1519, Anesthesia Intra-op New Bag 09/16/2015 1:09 PM E DT New Bag 09/16/2015 11:38 AM EDT sodium chloride 0.9% infusion CONTINUOUS PRN, Starting on Thu09/16/15 at 1156, Until Thu09/16/15 at 1519, Anesthesia Intra-op New Bag 09/16/2015 1:23 PM E DT New Bag 09/16/2015 11:56 AM EDT succinylcholine (ANECTINE) injection PRN, Starting on Thu09/16/15 at 1150, Until Thu09/16/15 at 1519, Anesthesia Intra-op, Routine Given 09/16/2015 11:50 AM EDT 140 mg vancomycin 1 g in dextrose 5% 200 mL 1,000 mg (1 g), Intravenous, ONCE, 1 dose, On Thu09/16/15 at 1015, Give over 60-90 minutes. Do [...] level. Please see MAR for scheduled level., STAT, Indication for (Active or Suspected): Prophylaxis Given 09/16/2015 11:55 AM EDT 1 g documented in this encounter Care Teams Glove Stitcher Relationship Specialty Start Date End Date AdeelUrbano bolandDO [address] [place] [address] PCP - General 09/03/12 03/17/22 Ruchi Valles RN Nurse Clinic Transplant Surgery 07/30/15 documented as of this encounter
--- OUTSIDE RECORDS SUMMARY | 2024-04-04 14:16 | XMS_ITS | Encounter Summary ---
Author Organization [facility] [address] Care Team Providers Care Access Service Representative Name Role Phone Urbano Denis DO Primary Care Provider Encounter Details Date Type Department Care Team (Late st Contact Info) Description 09/24/2015 Telephone [place] [phone] Samia Escalante, RN Social History Tobacco Use [...] Advised to call with additional concerns. Samia Esclaante RN [facility] Solid Organ Transplant [phone] (Pager: [phone]) documented in this encounter Plan of Treatment Upcoming Encounters Date Type Department Care Team (Late st Contact Info) Description 04/08/2024 1:40 PM EDT Office Visit Cardiology at [address] [phone] Jay Urban MD [facility] [place] [address] 04/15/2024 10:00 AM EDT Hospital Encounter [place] [address] Arrived documented as of this encounter Visit Diagnoses Not on filedocumented in this encounter Care Teams Access Service Representative Relationship Specialty Start Date End Date Urbnao Denis DO [address] [place] [address] [address] [place] [address] PCP - General 09/03/12 03/17/22 Hai STANLEY,Ruchi Nurse Clinic Transplant Surgery 07/30/15 documented as of this encounter
--- OUTSIDE RECORDS SUMMARY | 2024-04-04 14:16 | XMS_ITS | Encounter Summary ---
Author Organization [facility] [place] [address] Care Team Providers Care Fountain Pen Nibs Inspector Name Role Phone Urbano Denis DO Primary Care Provider Encounter Details Date Type Department Care Team (Late st Contact Info) Description 09/25/2015 10:30 AM EDT Office Visit [place] [address] Larry Larkin MD [facility] [place] [address] H/O kidney transplant Social History Tobacco Use [...] - 09/25/2015 2:32 PM EDT [facility] Post Transplant Nutrition Follow Up Date: 09/25/2015 Patient: Cody Bolden Transplant Date: 09/16/15 [place] organ UNOS diagnosis: Transplant: Mr. Cody Bolden [...] Value Date CHLPL 149 09/25/2015 Assessment: This telegraphic typewriter operator chief provided patient with a copy of his [...] Reassess labs and weight prn. * Larry Larikn MD - 09/25/2015 10:38 AM EDT Follow-Up: [...] performed by Que Amaro MD at [facility] MAIN OR ??? Pro transplantation of kidney N/A 09/16/2015 @KIDNEY TRANSPLANT, WITHOUT RECIPIENT NEPHRECTOMY performed by Larry Larkin MD at [facility] MAIN OR ??? Pro transplant, prep cadaver renal graft N/A 09/16/2015 @PREPARATION CADAVERIC RENAL ALLOGRAFT performed by Larry Larkin MD at [facility] OR ??? N/A 09/16/2015 ORGAN ACQUISITION RENAL, CADAVERIC performed by Larry Larkin MD at [facility] OR Family History: No family history [...] encounter Miscellaneous Notes * Addendum Note - Madhu Eagle MD - 09/25/2015 11:28 AM EDTAddended by: MADHU EAGLE on: 09/25/2015 11:28 AM Modules accepted: Orders documented in this encounter Plan of Treatment Upcoming Encounters Date Type Department Care Team (Late st Contact Info) Description 04/08/2024 1:40 PM EDT Office Visit Cardiology at [address] [phone] Jay Urban MD [facility] [place] [address] 04/15/2024 10:00 AM EDT Hospital Encounter [place] [address] Arrived documented as of this encounter Procedures [...] Culture No growth (Less than 1,000 cfu/ml). [facility] Urine specimen obtained by clean catch procedure (specimen) 09/25/2015 9:55 AM EDT 09/25/2015 10:48 AM EDT Narrative Resulting Agency Comment Spec In Lab Larry Larkin MD MICROBIOLOGY - GENER AL ORDERABLES [facility] [place] [address] * (ABNORMAL) Urinalysis with reflex Culture (09/25/2015 9:55 AM EDT) Glucose, Urine Dipstick 50(A) Negative mg/dL [facility] Protein, Urine Dipstick 30(A) Negative mg/dL [facility] Bilirubin, [...] [facility] Blood, Urine Dipstick Large(A) Negative mg/dL [facility] Ketone, Urine Dipstick Negative Negative mg/dL [facility] Nitrite, Urine Dipstick Negative Negative [facility] Leukocytes, Urine Dipstick Trace(A) Negative [facility] Appearance, Urine Dipstick Clear Clear [facility] Specific [place] Urine Automated 1.021 1.002 - 1.030 [facility] Color, Urine Dipstick Yellow Yellow [facility] RBC, Urine 172(H) 0 - 3 /HPF [facility] WBC, Urine 12(H) 0 - 3 /HPF [facility] WBC Clumps, Urine Rare(A) None /HPF [facility] Hyaline Casts, Urine 1 0 - 2 /LPF [facility] Granular Casts, Urine 1(H) <=0 /LPF [facility] Reflex to Culture Yes [facility] Urine specimen obtained by clean catch procedure (specimen) 09/25/2015 9:55 AM EDT 09/25/2015 10:09 AM EDT Narrative Resulting Agency Comment Spec In Lab Larry Larkin MD URINE ORDERABLES Performing Organization Address [facility] Co de Phone Number [facility] [place] [address] * Green Tube HOLD (09/25/2015 9:40 AM EDT) Green Hold Sample in lab. [facility] Blood specimen (specimen) Venous Draw / Unknown 09/25/2015 9:40 AM EDT 09/25/2015 9:54 AM EDT Larry Larkin MD CHEMISTRY ORDERABLES Performing Organization Address City/[facility] Co de Phone Number [facility] [place] [address] * (ABNORMAL) Differential, Automated (09/25/2015 9:40 AM EDT) Neutrophil % 66.2 % [facility] Neutrophil Absolute 6.81(H) 1.50 - 6.30 x10(3)/mc L [facility] Lymph % 22.8 % [facility] Lymphocytes Abs 2.4 1.0 - 3.6 x10(3)/mc L [facility] Monocyte % 5.7 % [facility] Monocyte Abs 0.6 0.2 - 1.0 x10(3)/mc L [facility] Eos % 3.5 % [facility] Eosinophils Abs 0.4 0.0 - 0.5 x10(3)/mc L [facility] Basophil % 0.1 % [facility] Baso Absolute 0.0 0.0 - 0.2 x10(3)/ L [facility] Immature Gran % 1.70 % [facility] Comment: Immature granulocytes(IG's)percentage and absolute count will include metamyelocytes, myelocytes, and promyelocytes. Blood smears from CBCs yielding IG's will be scanned manually for concordance. If this scan disagrees with the automated IG or if promyelocytes are noted, a manual differential will be performed. Immature Gran Absolute 0.18(H) 0.00 - 0.05 x10(3)/ L [facility] Blood specimen (specimen) 09/25/2015 9:40 AM EDT 09/25/2015 9:53 AM EDT Narrative Resulting Agency Comment Spec In Lab Larry Larkin MD HEMATOLOGY ORDERABLE S [facility] [place] [address] * (ABNORMAL) Hemogram (09/25/2015 9:40 AM EDT) White Blood Cell 10.3(H) 4.0 - 10.0 x10(3)/ L [facility] Red Blood Cell 3.29(L) 4.63 - 6.08 x10(6)/mc L [facility] Hemoglobin 10.4(L) 13.7 - 17.5 gm/dL [facility] Hematocrit 30.5(L) 40.0 - 51.0 % [facility] Mean Cell Volume 92.7(H) 79.0 - 92.0 fL [facility] Mean Cell Hemoglobin 31.6 25.6 - 32.2 pg [facility] Mean Cell Hemoglobin Concentration 34.1 32.0 - 36.5 gm/dL [facility] Platelet 271 145 - 370 x10(3)/ L [facility] RDW Standard Deviation 48.1(H) 35.0 - 46.0 fL [facility] RDW coefficient of variation 14.6(H) 10.9 - 14.4 % [facility] Mean Platelet Volume 9.3 9.0 - 12.0 fL [facility] Blood specimen (specimen) 09/25/2015 9:40 AM EDT 09/25/2015 9:53 AM EDT Narrative Resulting Agency Comment Spec In Lab Larry Larkin MD HEMATOLOGY ORDERABLE S Performing Organization Address [facility] Co de Phone Number [facility] [place] [address] * Tacrolimus level (09/25/2015 9:40 AM EDT) Tacrolimus 11.2 ng/mL [facility] Comment:Trough therapeutic: 5-15 ng/mL Blood specimen (specimen) 09/25/2015 9:40 AM EDT 09/25/2015 11:07 AM EDT Narrative Resulting Agency Comment Spec In Lab Larry Larkin MD CHEMISTRY ORDERABLES Performing Organization Address [facility] Co de Phone Number [facility] [place] [address] * (ABNORMAL) Reticulocyte Count (09/25/2015 9:40 AM EDT) Reticulocyte % 4.4(H) 0.5 - 2.4 % [facility] Retic Abs # 0.140(H) 0.027 - 0.095 x10(6)/mc L [facility] Immature Retic% 8.2 2.3 - 15.9 % [facility] Reticulated Hgb 37.9 28.5 - 38.9 pg [facility] Immature Plt % 0.9 0.0 - 7.4 % [facility] Blood specimen (specimen) 09/25/2015 9:40 AM EDT 09/25/2015 9:53 AM EDT Narrative Resulting Agency Comment Spec In Lab aLrry Larkin MD HEMATOLOGY ORDERABLE S Performing Organization Address City/[facility]/ZIP Co de Phone Number [facility] [place] [address] * Uric acid (09/25/2015 9:40 AM EDT) Uric Acid 5.6 3.5 - 8.5 mg/dL [facility] Blood specimen (specimen) 09/25/2015 9:40 AM EDT 09/25/2015 9:53 AM EDT Narrative Resulting Agency Comment Spec In Lab Larry Larkin MD CHEMISTRY ORDERABLES Performing Organization Address [facility] Co de Phone Number [facility] [place] [address] * (ABNORMAL) Phosphorus (09/25/2015 9:40 AM EDT) Phosphorus 2.2(L) 2.5 - 4.5 mg/dL [facility] Blood specimen (specimen) 09/25/2015 9:40 AM EDT 09/25/2015 9:53 AM EDT Narrative Resulting Agency Comment Spec In Lab Larry Larkin MD CHEMISTRY ORDERABLES Performing Organization Address [facility] Co de Phone Number [facility] [place] [address] * (ABNORMAL) Magnesium (09/25/2015 9:40 AM EDT) Magnesium 0.57(L) 0.69 - 1.07 mmol/L [facility] Blood specimen (specimen) 09/25/2015 9:40 AM EDT 09/25/2015 9:53 AM EDT Narrative Resulting Agency Comment Spec In Lab Larry aLrkin MD CHEMISTRY ORDERABLES Performing Organization Address City/[facility] Co de Phone Number [facility] [place] [address] * (ABNORMAL) Comprehensive metabolic panel (non-fasting) (09/25/2015 9:40 AM EDT) Glucose 151 65 - 199 mg/dL [facility] Comment:Diabetes: >=200 mg/d L plus symptoms Blood Urea Nitrogen 39(H) 10 - 20 mg/dL [facility] Creatinine 1.65(H) 0.80 - 1.50 mg/dL [facility] Comment: Please note that the pediatric reference intervals supplied above were not validated at [facility]. Results from pediatric patients should be interpreted in conjunction to the patient's age, height and muscle mass. Sodium 138 135 - 145 mmol/L [facility] Potassium 4.4 3.5 - 5.0 mmol/L [facility] Comment: Please note: ??Patients with WBC >100,000 may have falsely elevated Potassium levels. ??For accurate Potassium quantification in these patients send serum separator tube (gold top) for subsequent determinations. ??Contact the Clinical Chemistry Laboratory if there are any questions. Chloride 103 98 - 107 mmol/L [facility] Carbon Dioxide 24 22 - 31 mmol/L [facility] Anion Gap 11 5 - 15 mmol/L [facility] Calcium 8.5 8.5 - 10.5 mg/dL [facility] Protein, Total 6.4 6.1 - 8.0 gm/dL [facility] Albumin 3.3 3.2 - 5.2 gm/dL [facility] Aspartate Aminotransferase 19 0 - 39 unit/L [facility] Alanine Aminotransferase 33 0 - 55 unit/L [facility] Alkaline Phosphatase 60 40 - 120 unit/L [facility] Bilirubin, Total 0.7 0.2 - 1.3 mg/dL [facility] Bilirubin, Direct 0.2 0.0 - 0.3 mg/dL [facility] Est Glomerular Filtration Rate 42(L) >=60 [facility] Comment: This [...] the following links into your internet browser. [email or web address] Blood specimen (specimen) 09/25/2015 9:40 AM EDT 09/25/2015 9:53 AM EDT Narrative Resulting Agency Comment Spec In Lab Larry Larkin MD CHEMISTRY ORDERABLES Performing Organization Address City/[facility]/ZIP Co de Phone Number [facility] [place] [address] * Cholesterol, total (09/25/2015 9:40 AM EDT) Cholesterol, Total 149 <=199 mg/dL [facility] Comment: Recommendations of the NCEP Adult Treatment Panel for the following risk cutoff thresholds for the [place] population: Desirable: <200 mg/dL Borderline High: 200-239 mg/dL High: > or = 240 mg/dL Blood specimen (specimen) 09/25/2015 9:40 AM EDT 09/25/2015 9:53 AM EDT Narrative Resulting Agency Comment Spec In Lab Larry Larkin MD CHEMISTRY ORDERABLES Performing Organization Address City/[facility]/ZIP Co de Phone Number [facility] [place] [address] documented in this encounter Visit Diagnoses Diagnosis H/O kidney transplant Kidney replaced by transplant documented in this encounter Care Teams Fountain Pen Nibs Inspector Relationship Specialty Start Date End Date Urbano Denis DO [address] [place] [address] PCP - General 09/03/12 03/17/22 Ruchi Valles RN Nurse Clinic Transplant Surgery 07/30/15 documented as of this encounter
--- OUTSIDE RECORDS SUMMARY | 2024-04-04 14:16 | XMS_ITS | Encounter Summary ---
[place] [address] Care Team Providers Care Diesel Tractor Operator Name Role Phone Albania Nunez DO Primary Care Provider + [phone] Reason for Referral * Consultation (Routine) - Closed Specialty Diagnoses / Procedures Referred By Humberto flor Referred To Contact Infectious Diseases Diagnoses Renal transplant recipient Larry Larkin MD [facility] [place] [address] [facility] [place] [address] Referral ID Status Reason Start Date Expiration Date V isits Requested Visits Authorized [id number] Closed Assume Subset of Care 09/18/2015 09/17/2016 1 1 Reason for Visit * Auth/Cert Specialty Diagnoses / Procedures Referred By Humberto flor Referred To Contact Diagnoses RENAL FAILURE Kidney transplant. UNOS #[id number] Procedures PRO TRANSPLANTATION OF KIDNEY PRO TRANSPLANT, PREP CADAVER RENAL GRAFT @KIDNEY TRANSPLANT, WITHOUT RECIPIENT NEPHRECTOMY @PREPARATION CADAVERIC RENAL ALLOGRAFT Referral ID Status Reason Start Date Expiration Date Visits Re quested Visits Authorized [id number] 1 1 Encounter Details Date Type Department Care Team (Latest Contact Info) Description 09/16/2015 9:46 AM EDT - 09/20/2015 3:40 PM EDT Hospital Encounter [address] [id number] [facility] [place] [address] Renal transplant recipient (Primary Dx); ESRD (end [...] Surgery Inpatient - Discharge Summary Patient Name: tEhel Bolden Patient Age: 65 y.o. Birthdate: 1950 [...] Bolden's stay because his kidney donor was [facility] high risk donor, and had known [...] Department Center 09/25/2015 9:00 AM TRANSPLANT, COORDINATOR [address] 09/25/2015 10:30 AM Larry Larkin MD [address] Outpatient Services/Studies: OPAT: Order / Recommendation [...] nurse practitioner, clinical nurse specialist or physician's mobile unit assistant who is working directly with them, had a face to face encounter that meets the physician face to face encounter requirements with this patient on 09/19/2015 The encounter with the patient was in whole, or in part, for the following medical condition, whichis the primary reason for home health care services: [ ESRD, on HD at [facility] HD Thu/Thu/Thursday since January 2015. OR on [...] changes will need to be obtained from [facility] Transplant Clinic [phone] or from this patient's PCP: ALBANIA NUNEZ, [address] [place] [address] All VNA agencies which cover the area of patient's residence have been reviewed, either verbally greg writing, and patient/family have chosen the indicated home health care agency for home services. [facility]. PHONE: [phone] FAX: [phone] RN visits to begin on day after patient's discharge to home, if possible. RN visits 3-4times/week for post-operative assessment, checking for signs and symptoms of infection. Assess nutrition and hydration/abdomen/stooling pattern. Check weight and intake/output records. Reinforcement of teaching about LEEANNA drain care/emptying and recording amount of drainage. Cardio-pulmonary assessment. Medication review. Central line care per [facility] OPAT protocol. Reinforcement of teaching about IV antibiotic administration. Question Response Notes Agency name and contact information [facility] Patient location post discharge home What services are requested Registered Nurse Responsible MD post discharge contact info [facility] Dr. Larry Larkin and PCP Albania Nunez Referral for Outpatient Antibiotics Question Response Notes Vendor / contact information [facility] Patient location post discharge home Service requested Central line care per OPAT protocol and IV antibiotic Responsible MD post discharge contact info [facility] Dr. Larry Larkin and Dr. Brian Grande [...] may be used if needed and are xyts-iib-vzozkce (OTC) medications available at most local pharmacies. [...] Medicine sheet provided to you by the Sash Sticker to guide your daily doses. If you did notreceive some medications from the pharmacy at [facility] it is likely because they are over [...] with the Transplant Surgery Outpatient Clinic - [address] in 2-4 days. You will recieve a letter in the mail and/or a phone call with information about this appointment. Please call [phone] (clinic number for appointments) to confirm date [...] blood work. Your surgeon may not be Hydraulic Dredge Operator, especially during the night or on weekends, so be ready to describe yourself and your surgery when you call. General Instructions Office of Care Management/Rerecording Mixer(CM) Home IV Antibiotic Therapy Referral Note. Report received from Dr. Brian Grande that patient will require continued home IV antibiotic therapyafter discharge from the hospital. Met with patient/family to discuss vendor and visiting nurse choices for home IV antibiotic therapy. Reviewed Home Infusion Vendors and Home Health Agencies that serve patient???s address and accept patient???s insurance. Home Health Agency: Patient requested referral to [facility] PHONE: [phone] FAX: [phone] Referrals sent via edischarge. Home Infusion Vendor: Patient requested referral to [place], [place] or Referrals sent via edischarge. Diabetic Status: Patient is a diabetic. IV access: Type of line: Tunneled CVC Date placed: 09/19/15 CM signature Ruchi Tang RN Pager# [phone] [facility] Vascular/Interventional Radiology DISCHARGE INSTRUCTIONS FOR TUNNELED [...] is during regular working hours, please call [phone]. If it is after 5 pm or a weekend or holiday, call [phone] and ask for the Willow Worker substation operator for Interventional Radiology. You have received medication [...] 09/19/2015 4:12 PM EDT Office of Care Management/Rerecording Mixer(CM) Home IV Antibiotic Therapy Referral Note. Report received from Dr. Brian Grande that patient will require continued home IV antibiotic therapyafter discharge from the hospital. Met with patient/family to discuss vendor and visiting nurse choices for home IV antibiotic therapy. Reviewed Home Infusion Vendors and Home Health Agencies that serve patient???s address and accept patient???s insurance. Home Health Agency: Patient requested referral to [facility] PHONE: [phone] FAX: [phone] Referrals sent via edischarge. Home Infusion Vendor: Patient requested referral to [place], [place] or Referrals sent via edischarge. Diabetic Status: Patient is a diabetic. IV access: Type of line: Tunneled CVC Date placed: 09/19/15 CM signature Ruchi Tang RN Pager# [phone] [facility] Vascular/Interventional Radiology DISCHARGE INSTRUCTIONS FOR TUNNELED [...] is during regular working hours, please call [phone]. If it is after 5 pm or a weekend or holiday, call [phone] and ask for the Willow Worker substation operator for Interventional Radiology. You have received medication [...] may be used if needed and are kmfi-xxp-xdwhtti (OTC) medications available at most local pharmacies. [...] Medicine sheet provided to you by the Sash Sticker to guide your daily doses. If you did notreceive some medications from the pharmacy at [facility] it is likely because they are over [...] with the Transplant Surgery Outpatient Clinic - [address] in 2-4 days. You will recieve a letter in the mail and/or a phone call with information about this appointment. Please call [phone] (clinic number for appointments) to confirm date [...] blood work. Your surgeon may not be Hydraulic Dredge Operator, especially during the night or on weekends, [...] by Que Amaro MD at [facility] OR? Pro transplantation of kidney?? N/A?? 09/16/2015? @KIDNEY TRANSPLANT, WITHOUT RECIPIENT NEPHRECTOMY performed by Larry Larkin MD at [facility] OR? Pro transplant, prep cadaver renal graft?? N/A?? 09/16/2015? @PREPARATION CADAVERIC RENAL ALLOGRAFT performed by Larry Larkin MD at [facility] OR? N/A?? 09/16/2015? ORGAN ACQUISITION RENAL, CADAVERIC performed by Larry Larkin MD at [facility] OR?? Social History: Patient lives with spouse in [place], [place].?? He reports he & not working [...] minutes Total timed interventions: 23 minutes Pager: [phone] Nicole Soares Physical Therapy Rehabilitation Department * [...] their responsibilities at home. Samia Escalante RN [facility] Solid Organ Transplant [phone] (Pager: [phone]) * Kyle Huizar, CREDIT COLLECTION ASSOCIATE - 09/20/2015 12:47 PM EDT Interventional Radiology Inpatient- Progress Note Post procedure day 1 s/p placement of tunneled RIJ single lumen CVC Responsible Attending: Larry Larkni MD Problem List: Active Hospital Problems Diagnosis [...] single lumen CVC was placed 09/19/15 for jail antibiotics. The CVC has not been used, according to nursing. Possible discharge home today. Plan: We will sign off, but would be happy to see patient again for any issues. KYLE HUIZAR APRN 09/20/2015 * Herlinda Bell, RD - 09/20/2015 12:02 PM EDT TRANSPLANT NUTRITION Post-Transplant Discharge Diet Instruction This senior medical writer met with Ethel Bolden a 65 [...] requirements decrease to ~85gms per day. This senior medical writer stressed importance of adequate hydration and [...] prior to his leaving. Samia Escalante RN [facility] Solid Organ Transplant [phone] (Pager: [phone]) * Therese Carpio RN - 09/19/2015 2:26 PM EDT 1410 To procedure room 2 via stretcher. Onto table in supine position. All monitors, O2, safety strap in place. Med's per protocol. * Herlinda Bell RD - 09/19/2015 11:11 AM EDT TRANSPLANT NUTRITION Post-Transplant Nutrition Visit This senior medical writer met with Ethel Bolden a 65 [...] decrease to ~82gms per day. Summary/Plan: This senior medical writer will initiate diet teaching tomorrow with patient and . Follow up with patient after discharge in outpatient solid organ transplant clinic. Remain available for questions/concerns. * Ruchi Tang RN - 09/19/2015 10:00 AM EDT Care Management/ Pager# [phone]/ Transfer note and Discharge planning S: Getting everything organized for me to be able to go home tomorrow sounds perfect. I was doing HD at [facility] on Thursday/Thursday/Thursday since January 2015. I won't be needing to go there anymore. Getting the referrals in to [facility] and [facility] is a good plan. Thanks for your help. O: Met with patient this morning. Patient [facility] Patient is POD# 3 [...] OOB ambulating with minimal assistance. Message to Professor Of Visual Arts about [facility] HD (M/W/F) prior to admission. Message to Professor Of Visual Arts for referral to [facility] and to [facility]. Call to Anthony of [facility] to discuss referral for CVC care and IV antibiotic. Care Management note for MD Discharge Summary (with VNA and IV antibiotic Vendor information) completed and pended by senior medical writer. Discussion with loan interviewer Tamela Mckeon. A/P: Discharge planning underway for likely patient discharge on 09/19. At time of patient's discharge, staff radiologist to call report to VNRay and MD Discharge Summary . * Ruchi Tang RN - 09/19/2015 9:47 AM EDT Office of Care Management/Rerecording Mixer(CM) Home IV Antibiotic Therapy Referral Note. Report received from Dr. Brian Grande that patient will require continued home IV antibiotic therapyafter discharge from the hospital. Met with patient/family to discuss vendor and visiting nurse choices for home IV antibiotic therapy. Reviewed Home Infusion Vendors and Home Health Agencies that serve patient???s address and accept patient???s insurance. Home Health Agency: Patient requested referral to [facility] PHONE: [phone] FAX: [phone] Referrals sent via edischarge. Home Infusion Vendor: Patient requested referral to [place], [place] or Referrals sent via edischarge. Diabetic Status: Patient is a diabetic. IV access: Type of line: Tunneled CVC Date placed: 09/19/15 CM signature Ruchi Tang RN Pager# [phone] * Que Amaro MD - 09/19/2015 9:03 [...] in the renal artery or vein. ASSESSMENT: Ethle Bolden is a 65 y.o. male s/p [...] on 07/31/2015 for an AV fistulagram without COAGULATING DRYING SUPERVISOR. He has had prior R IJ TDC [...] NEPHRECTOMY performed by Larry Larkin MD at [facility] OR ??? Pro transplant, prep cadaver renal graft N/A 09/16/2015 @PREPARATION CADAVERIC RENAL ALLOGRAFT performed by Larry Larkin MD at [facility] OR ??? N/A 09/16/2015 ORGAN ACQUISITION RENAL, CADAVERIC performed by Larry Larkin MD at [facility] OR No Known Allergies Scheduled [...] Amaro on 05.09.15. Patient last seen in [place] 07/31/2015 for an AV fistulagram without COAGULATING DRYING SUPERVISOR. He has had prior R IJ TDC [...] of : 1950 AGE 65 y.o. Address: [address] [place] [phone] (home) [phone] (work) Mobile: Telephone Information: Referring Provider: [place] [...] NEPHRECTOMY performed by Larry Larkin MD at [facility] OR ??? Pro transplant, prep cadaver renal graft N/A 09/16/2015 @PREPARATION CADAVERIC RENAL ALLOGRAFT performed by Larry Larkin MD at [facility] ??? N/A 09/16/2015 ORGAN ACQUISITION RENAL, CADAVERIC performed by Larry Larkin MD at [facility] Date/Procedure? Med's given/comments 01/08/2015: [...] hr Take 1 capsule by mouth daily. 09/17/15Qeu chavis MD valGANciclovir (VALCYTE) 450 mg Tablet [...] informed this patient that they require a regional flatbed truck driver to be present and in the building to drive them home after this procedure. In the absence of a regional flatbed truck driver, IR will not be able [...] EXTREMITY performed by Qeu Amaro MD at [facility] OR ??? Pro transplantation of kidney N/A 09/16/2015 @KIDNEY TRANSPLANT, WITHOUT RECIPIENT NEPHRECTOMY performed by Larry Larkin MD at [facility] ??? Pro transplant, prep cadaver renal graft N/A 09/16/2015 @PREPARATION CADAVERIC RENAL ALLOGRAFT performed by Larry Larkin MD at [facility] ??? N/A 09/16/2015 ORGAN ACQUISITION RENAL, CADAVERIC performed by Larry Larkin MD at [facility] Social History: Patient lives with spouse in [place], [place]. He reports he & not working [...] 20 minutes PARKER GILL, PT 09/18/2015 Pager: [phone] Physical Therapy Rehabilitation Department * Pauline Miles, RN - 09/18/2015 4:18 PM EDT 1615: Pt arrived to 422 via bed from [facility]. Skyla initiated. Call robles within reach. VS stable. [facility]. * Mundo Barry RN - 09/18/2015 1:35 PM EDT Nurse Rerecording Mixer Initial Assessment Mundo Barry RN, pager [phone] Office of Care Management 09/18/2015 Ethel Bolden [id number] Date of : 1950 Admission Diagnosis: Renal failure [N19]; per adm note: PMH significant for HCV with hemodialysis dependent ESRD 2/2 HTN who presents today for [facility] high risk donor kidney transplantation. Past Medical [...] History Narrative None on file Lives in [place], [place] in own home w/ spouse Mundo and 26 y.o. Son. Code Status: Full. Advance Directives:none in [facility]. Admission Status: written and signed by attending as IPI. Insurance: Medicare A,B and D through [employer] and /. [facility] [address] Baseline Functional Status: self reports no [...] with changing needs. Mundo Barry RN, MSN Rerecording MixerMachine Stone Polisher Apprentice of Care Management Pager [phone] Phone: [phone] * Brian Grande MD - [...] consult service will continue to follow. Page [phone] with questions or concerns. X Recommendations are above. ID will sign off. If clinical changes occur or new questions arise, page [phone]. Patient discussed with ID attending Dr. Harjinder BECK MD Fellow, Infectious Disease 09/18/2015 Pager [phone] Addendum Asked to comment on the possibility [...] the ceftriaxone. Selena Beck ID fellow Pager [phone] I agree with the recommendations of Dr. Beck after discussion with her and review of her note.I did not examine the patient myself today. Brian Grande MD * Tal Eagle MD - 09/18/2015 9:54 AM EDT TRANSPLANT NEPHROLOGY CONSULT PROGRESS NOTE REASON FOR CONSULTATION: medical management of transplant kidney referred by Dr. Larkin Ethel Bolden [id number] 1950 Transplant ID: Date: 09/18/2015 Patient: Ethel Bolden Transplant Date: 09/16/2015 Organ(s) donor [place] organ diagnosis: Renal biopsy showing diabetic and [...] kidney. Pt was getting HD MWF at [facility]. He was referred by Dr. Nunez for pre transplant evaluation for his kidney and was seen by Dr Eagle on 04/19/2015. He apparently had previouslybeen evaluated for transplant at the [facility]. He was told he will need a [...] Shagufta Villasenor MD Nephrology fellow Pager # [phone] I reviewed all of the above findings [...] Urine picked up throughout shift. Weaning from BATTER SCALER. Report given to next shift. * Samia [...] his second Simulect infusion. Samia Escalante RN [facility] Solid Organ Transplant [phone] (Pager: [phone]) * Tal Eagle MD - 09/17/2015 10:15 [...] which accurately reflect mine. * Jesus Bradley, [facility] - 09/16/2015 5:40 PM EDT Clinical Pharmacist Note-Vanc Ethel Bolden [id number] 1950 Ethel Bolden is a 65 y.o. [...] have. Alternately, during off-hours you may call [phone] to contact a pharmacist. JESUS BRADLEY RPH Pager [phone] * Brenda Masterson RN - 09/16/2015 11:24 [...] prior to OR. MD Saravia at bedside, Textile Artist, Ninoska GERBER will return for consent. Will continue to monitor. documented in this encounter H&P Notes * Marcus Saravia MD - 09/16/2015 9:57 AM EDT [facility] Department of Transplant Surgery H&P Note [...] Amaro MD at [facility] ALL: No Known Allergies [...] when outof bed;room near unit station 09/19/15 1651 Musculoskeletal Interventions Activity/Level of Assistance up in [...] EVALUATION NOTE: OUTCOME SUMMARY: Surgica sites WNL, REGIONAL BRANCH MANAGER, alessandro and well approximated. Patient transferred to IR for central access, for home Abx regime. Patients FC removed, patient voiding with no concerns. Reinforced teaching ofpatient documentation of I&O. Patient IVF d/c, and pt tolerating PO nutrition. Home Abx teaching completed during shift at approx 1800 by [place] [facility]. PLAN MOVING FORWARD: Patient +Flatus awaiting [...] small amount of serousanginous output. Inscision dry/intact REGIONAL BRANCH MANAGER. K this am is 5.2. Pt received prn oxycodone [id number]. Pt was OOB walked 100ft w/o any [...] kidney referred by Dr. Larkin Ethel Bolden [id number] 1950 Transplant ID: Date: 09/17/2015 Patient: Ethel Bolden Transplant Date: 09/16/2015 Organ(s) donor [place] organ diagnosis: Renal biopsy showing diabetic and [...] kidney. Pt was getting HD MWF at [facility]. He was referred by Dr. Nunez for pre transplant evaluation for his kidney and was seen by Dr Eagle on 04/19/2015. He apparently had previouslybeen evaluated for transplant at the [facility]. He was told he will need a [...] NEPHRECTOMY performed by Larry Larkin MD at [facility] ??? Pro transplant, prep cadaver renal graft N/A 09/16/2015 @PREPARATION CADAVERIC RENAL ALLOGRAFT performed by Larry Larkin MD at [facility] FH: Father had heart [...] Shagufta Villasenor MD Nephrology fellow Pager # [phone] I reviewed all of the above findings and assessment of Dr. Villasenor, examined the patient and formulated the recommendations which accurately reflect mine. 80 Min., >50%(40 min) in direct face to face credit support counselor. o Discussion with the patient and/or [...] NEPHRECTOMY performed by Larry Larkin MD at [facility] ??? Pro transplant, prep cadaver renal graft N/A 09/16/2015 @PREPARATION CADAVERIC RENAL ALLOGRAFT performed by Larry Larkin MD at [facility] Social History and Habits: [...] continue to follow patient. Page us at [phone] with any further questions or concerns. Recommendations are above and were discussed with the primary treating team. ID will sign off. Please page if further consultation required. This patient was seen and discussed with ID attending Dr. Harjinder BECK MD Fellow, Infectious Disease 09/17/2015 Pager [phone] I interviewed, examined and discussed the patient with Dr. Beck, with whose findings and recommendations I concur. I also reviewed all pertinent labs and radiology. Would treat the GCS with ceftriaxone as per Dr. Beck, with duration in part driven by final results of final cultures from donor. Brian Grande MD * Op Note - Larry Larkin MD - 09/17/2015 11:03 AM EDT [facility] Operative Note Patient Name: Ethel Bolden : [id number] MR#: [id number] Case Date: 09/16/2015 Surgeon: Surgeon(s) and Role: * Larry Larkin MD - Primary * Marcus Saravia MD Preoperative diagnosis: Kidney transplant. UNOS #[id number] Postoperative diagnosis: Kidney transplant. UNOS #[id number] Procedure(s): @KIDNEY TRANSPLANT, WITHOUT RECIPIENT NEPHRECTOMY @PREPARATION [...] to adjacent structures, lymphocoele, urtereral leak, stroke, ME, and . The donor and recipient are [...] NEPHRECTOMY performed by Larry Larkin MD at [facility] ??? Pro transplant, prep cadaver renal graft N/A 09/16/2015 @PREPARATION CADAVERIC RENAL ALLOGRAFT performed by Larry Larkin MD at [facility] Social History: Patient lives with spouse in [place], [place]. He reports he & not working [...] Pt seen for evaluation today. Pain: using BATTER SCALER but no c/o pain. Vital Signs: Sp02: [...] and wanting to sit to eat breakfast KF=424/64 and RN notified. Standing: he preferred to hold walker in case during first walk. Informed Consent: The patient understands and agrees to the PT treatment plan and goals. Education: patient have been educated on Role of therapy and verbalizes understanding. Patient status, treatment, and mobility recommendations discussed with nursing. Assessment: Ethel Gomez Keniamarialuisaramón presents to POD #1 s/p kidney transplant. [...] 0 minutes ANDREI GILL PT 09/17/2015 Pager: [phone] Physical Therapy Rehabilitation Department * Plan of [...] with turning/repositioning Supervision: Hourly rounding, direct care, RN/MANAGER DRUG Surveillance: Telemetry and pulse oximetry [facility] OUTCOME [...] Operative Note Patient Name: Ethel Bolden : [id number] MR#: [id number] Case Date: 09/16/2015 Surgeon: Surgeon(s) and Role: * Larry Larkin MD - Primary * Marcus Saravia MD Preoperative diagnosis: Kidney transplant. UNOS #[id number] Postoperative diagnosis: Kidney transplant. UNOS #[id number] Procedure(s): @KIDNEY TRANSPLANT, WITHOUT RECIPIENT NEPHRECTOMY @PREPARATION [...] PM EDT Office Visit Cardiology at [address] [place] [phone] [facility] [address] 04/15/2024 10:00 AM EDT Hospital Encounter Non-Invasive Cardiology Lab [facility] [place] [address] Arrived Scheduled Referrals Name Type Priority Associated Diagnoses Order Schedule OPAT: Order / Recommendation for Post Discharge IV Antibiotic Management Outpatient Referral Routine Renal transplant recipient Ordered: 09/18/2015 documented as of this encounter Procedures Procedure Name Priority Date/Time Associated Diagnosis Comments HOLLOW TILE PARTITION ERECTOR SCAN 09/21/2015 12:00 AM EDT POCT GLUCOSE [...] 09/16/2015 11:41 AM EDT Kidney transplant. UNOS #[id number] @PREPARATION CADAVERIC RENAL ALLOGRAFT (WRVU 9.24) 09/16/2015 11:41 AM EDT Kidney transplant. UNOS #[id number] @KIDNEY TRANSPLANT, WITHOUT RECIPIENT NEPHRECTOMY (WRVU 39.88) 09/16/2015 11:41 AM EDT Kidney transplant. UNOS #[id number] CMV ANTIBODY, IGG Routine 09/16/2015 10: 28 [...] in this encounter Results * SCAN DOC: HOLLOW TILE PARTITION ERECTOR (09/21/2015 12:00 AM EDT) Anatomical Region Laterality Modality Other Scanning Provider MEDIA MGR SCAN EXT O RDR/RSLT * POCT Glucose (09/20/2015 11:23 AM EDT) Glucose, POC 144 65 - 199 mg/dL [facility] Comment: Supplemental ranges: <140 mg/dL before meals <180 mg/dL all other times of the day Blood specimen (specimen) 09/20/2015 11:23 AM EDT 09/20/2015 11:23 AM EDT Larry Larkin MD POINT OF CARE TEST O RDERABLES [facility] [place] [place] [address] * Tacrolimus level (09/20/2015 8:04 AM EDT) Tacrolimus <3.0 ng/mL [facility] Comment:Trough therapeutic: 5-15 ng/mL Blood specimen (specimen) 09/20/2015 8:04 AM EDT 09/20/2015 10:58 AM EDT Narrative Resulting Agency Comment Spec In Lab Larry Larkin MD CHEMISTRY ORDERABLES Performing Organization Address City/[facility]/ZIP Co de Phone Number [facility] [place] [place] [address] * POCT Glucose (09/20/2015 7:10 AM EDT) Pathologist [facility] Glucose, POC 123 65 - 199 mg/dL [facility] Comment: Supplemental ranges: <140 mg/dL before meals <180 mg/dL all other times of the day Blood specimen (specimen) 09/20/2015 7:10 AM EDT 09/20/2015 7:10 AM EDT Larry Larkin MD POINT OF CARE TEST O RDERABLES Performing Organization Address City/[facility]/ZIP Co de Phone Number [facility] [place] [address] * (ABNORMAL) Differential, Automated (09/20/2015 4:58 AM EDT) [facility] Neutrophil % 80.6 % [facility] Neutrophil Absolute 7.65(H) 1.50 - 6.30 x10(3)/mc L [facility] Lymph % 7.2 % [facility] Lymphocytes Abs 0.7(L) 1.0 - 3.6 x10(3)/mc L [facility] Monocyte % 11.9 % [facility] Monocyte Abs 1.1(H) 0.2 - 1.0 x10(3)/mc L [facility] Eos % 0.0 % [facility] Eosinophils Abs 0.0 0.0 - 0.5 x10(3)/mc L [facility] Basophil % 0.0 % [facility] Baso Absolute 0.0 0.0 - 0.2 x10(3)/mc L [facility] Immature Gran % 0.30 % [facility] Comment: Immature granulocytes(IG's)percentage and absolute count will include metamyelocytes, myelocytes, and promyelocytes. Blood smears from CBCs yielding IG's will be scanned manually for concordance. If this scan disagrees with the automated IG or if promyelocytes are noted, a manual differential will be performed. Immature Gran Absolute 0.03 0.00 - 0.05 x10(3)/mc L [facility] Blood specimen (specimen) 09/20/2015 4:58 AM EDT 09/20/2015 5:17 AM EDT Narrative Resulting Agency Comment Spec In Lab Larry Larkin MD HEMATOLOGY ORDERABLE S [facility] [place] [place] [address] * (ABNORMAL) Hemogram (09/20/2015 4:58 AM EDT) White Blood Cell 9.5 4.0 - 10.0 x10(3)/mc L [facility] Red Blood Cell 2.95(L) 4.63 - 6.08 x10(6)/mc L [facility] Hemoglobin 9.4(L) 13.7 - 17.5 gm/dL [facility] Hematocrit 27.5(L) 40.0 - 51.0 % [facility] Mean Cell Volume 93.2(H) 79.0 - 92.0 fL [facility] Mean Cell Hemoglobin 31.9 25.6 - 32.2 pg [facility] Mean Cell Hemoglobin Concentration 34.2 32.0 - 36.5 gm/dL [facility] Platelet 234 145 - 370 x10(3)/mc L [facility] RDW Standard Deviation 50.1(H) 35.0 - 46.0 fL [facility] RDW coefficient of variation 14.6(H) 10.9 - 14.4 % [facility] Mean Platelet Volume 9.4 9.0 - 12.0 fL [facility] Blood specimen (specimen) 09/20/2015 4:58 AM EDT 09/20/2015 5:17 AM EDT Narrative Resulting Agency Comment Spec In Lab Larry Larkin MD HEMATOLOGY ORDERABLE S Performing Organization Address [facility] Co de Phone Number [facility] [place] [place] [address] * (ABNORMAL) Hepatic Function Panel (09/20/2015 4:58 AM EDT) Protein, Total 6.0(L) 6.1 - 8.0 gm/dL [facility] Albumin 3.1(L) 3.2 - 5.2 gm/dL [facility] Aspartate Aminotransferase 19 0 - 39 unit/L [facility] Alanine Aminotransferase 17 0 - 55 unit/L [facility] Alkaline Phosphatase 43 40 - 120 unit/L [facility] Bilirubin, Total 0.5 0.2 - 1.3 mg/dL [facility] Bilirubin, Direct 0.1 0.0 - 0.3 mg/dL [facility] Blood specimen (specimen) 09/20/2015 4:58 AM EDT 09/20/2015 5:17 AM EDT Narrative Resulting Agency Comment Spec In Lab Larry Larkin MD CHEMISTRY ORDERABLES Performing Organization Address [facility] Co de Phone Number [facility] [place] [address] * Phosphorus (09/20/2015 4:58 AM EDT) Phosphorus 3.0 2.5 - 4.5 mg/dL [facility] Blood specimen (specimen) 09/20/2015 4:58 AM EDT 09/20/2015 5:17 AM EDT Narrative Resulting Agency Comment Spec In Lab Larry Larkin MD CHEMISTRY ORDERABLES Performing Organization Address [facility] Co de Phone Number [facility] [place] [address] * Magnesium (09/20/2015 4:58 AM EDT) Magnesium 0.89 0.69 - 1.07 mmol/L [facility] Blood specimen (specimen) 09/20/2015 4:58 AM EDT 09/20/2015 5:17 AM EDT Narrative Resulting Agency Comment Spec In Lab Larry Larkin MD CHEMISTRY ORDERABLES [facility] [place] [address] * (ABNORMAL) Basic Metabolic Panel (non-fasting) (09/20/2015 4:58 AM EDT) Glucose 130 65 - 199 mg/dL [facility] Comment:Diabetes: >=200 mg/d L plus symptoms Blood Urea Nitrogen 60(H) 10 - 20 mg/dL [facility] Creatinine 2.30(H) 0.80 - 1.50 mg/dL [facility] Comment: result rechecked-monty Please note that the pediatric reference intervals supplied above were not validated at [facility]. Results from pediatric patients should be interpreted in conjunction to the patient's age, height and muscle mass. Sodium 144 135 - 145 mmol/L [facility] Potassium 5.1(H) 3.5 - 5.0 mmol/L [facility] Comment: Please note: ??Patients with WBC >100,000 may have falsely elevated Potassium levels. ??For accurate Potassium quantification in these patients send serum separator tube (gold top) for subsequent determinations. ??Contact the Clinical Chemistry Laboratory if there are any questions. Chloride 108(H) 98 - 107 mmol/L [facility] [...] the following links into your internet browser. [email or web address] Blood specimen (specimen) 09/20/2015 4:58 AM EDT 09/20/2015 5:17 AM EDT Narrative Resulting Agency Comment Spec In Lab Larry Larkin MD CHEMISTRY ORDERABLES Performing Organization Address [facility] Co de Phone Number [facility] [place] [address] * POCT Glucose (09/19/2015 9:00 PM EDT) Glucose, POC 183 65 - 199 mg/dL [facility] Comment: Supplemental ranges: <140 mg/dL before meals <180 mg/dL all other times of the day Blood specimen (specimen) 09/19/2015 9:00 PM EDT 09/19/2015 9:00 PM EDT Larry Larkin MD POINT OF CARE TEST O RDERABLES Performing Organization Address [facility] Co de Phone Number [facility] [place] [address] * POCT Glucose (09/19/2015 4:19 PM EDT) Glucose, POC 151 65 - 199 mg/dL [facility] Comment: Supplemental ranges: <140 mg/dL before meals <180 mg/dL all other times of the day Blood specimen (specimen) 09/19/2015 4:19 PM EDT 09/19/2015 4:19 PM EDT Larry Larkin MD POINT OF CARE TEST O RDERABLES [facility] [place] [address] * IR central venous access (09/19/2015 3:38 [...] Glucose, POC 122 65 - 199 mg/dL [facility] Comment: Supplemental ranges: <140 mg/dL before meals <180 mg/dL all other times of the day Blood specimen (specimen) 09/19/2015 11:56 AM EDT 09/19/2015 11:56 AM EDT Larry Larkin MD POINT OF CARE TEST O RDERABG Performing Organization Address [facility] Co de Phone Number [facility] [place] [place] [address] * POCT Glucose (09/19/2015 7:06 AM EDT) [facility] Glucose, POC 169 65 - 199 mg/dL [facility] Comment: Supplemental ranges: <140 mg/dL before meals <180 mg/dL all other times of the day Blood specimen (specimen) 09/19/2015 7:06 AM EDT 09/19/2015 7:06 AM EDT Larry Larkin MD POINT OF CARE TEST O RDERABLES Performing Organization Address City/[facility]/ZIP Co de Phone Number [facility] [place] [address] * (ABNORMAL) Differential, Automated (09/19/2015 6:14 AM EDT) Neutrophil % 87.3 % [facility] Neutrophil Absolute 10.11(H) 1.50 - 6.30 x10(3)/mc L [facility] Lymph % 3.0 % [facility] Lymphocytes Abs 0.4(L) 1.0 - 3.6 x10(3)/mc L [facility] Monocyte % 9.5 % [facility] Monocyte Abs 1.1(H) 0.2 - 1.0 x10(3)/[facility] Eos % 0.0 % [facility] Eosinophils Abs 0.0 0.0 - 0.5 x10(3)/[facility] Basophil % 0.0 % [facility] Baso Absolute 0.0 0.0 - 0.2 x10(3)/[facility] Immature Gran % 0.20 % [facility] Comment: [...] [facility] Blood specimen (specimen) 09/19/2015 6:14 AM EDT 09/19/2015 6:23 AM EDT Narrative Resulting Agency Comment Spec In Lab Larry Larkin MD HEMATOLOGY ORDERABLE S [facility] [place] [place] [address] * (ABNORMAL) Hemogram (09/19/2015 6:14 AM EDT) White Blood Cell 11.6(H) 4.0 - 10.0 x10(3)/[facility] Red Blood Cell 2.92(L) 4.63 - 6.08 x10(6)/[facility] Hemoglobin 9.1(L) 13.7 - 17.5 gm/dL [facility] Hematocrit 27.1(L) 40.0 - 51.0 % [facility] Mean Cell Volume 92.8(H) 79.0 - 92.0 fL [facility] Mean Cell Hemoglobin 31.2 25.6 - 32.2 pg [facility] Mean Cell Hemoglobin Concentration 33.6 32.0 - 36.5 gm/dL [facility] Platelet 206 145 - 370 x10(3)/mc L [facility] RDW Standard Deviation 48.3(H) 35.0 - 46.0 fL [facility] RDW coefficient of variation 14.2 10.9 - 14.4 % [facility] Mean Platelet Volume 9.3 9.0 - 12.0 fL [facility] Blood specimen (specimen) 09/19/2015 6:14 AM EDT 09/19/2015 6:23 AM EDT Narrative Resulting Agency Comment Spec In Lab Larry Larkin MD HEMATOLOGY ORDERABLE S Performing Organization Address [facility] de Phone Number [facility] [place] [address] * Cryoglobulin (09/19/2015 6:14 AM EDT) Cryoglobulin See Note [facility] Comment: Cryoglobulins negative at 24 and 72 hours. This test was developed and its performance characteristics determined by [facility]. It has not been [...] Larkin MD CHEMISTRY ORDERABLES Performing Organization Address [facility] Co de Phone Number [facility] [place] [place] [address] * (ABNORMAL) Hepatic Function Panel (09/19/2015 6:14 AM EDT) Protein, Total 6.1 6.1 - 8.0 gm/dL [facility] Albumin 3.1(L) 3.2 - 5.2 gm/dL [facility] Aspartate Aminotransferase 20 0 - 39 unit/L [facility] Alanine Aminotransferase 13 0 - 55 unit/L [facility] Alkaline Phosphatase 43 40 - 120 unit/L [facility] Bilirubin, Total 0.4 0.2 - 1.3 mg/dL [facility] Bilirubin, Direct 0.1 0.0 - 0.3 mg/dL [facility] Blood specimen (specimen) 09/19/2015 6:14 AM EDT 09/19/2015 6:23 AM EDT Narrative Resulting Agency Comment Spec In Lab Larry Larkin MD CHEMISTRY ORDERABLES Performing Organization Address [facility] Co de Phone Number [facility] [place] [address] * Phosphorus (09/19/2015 6:14 AM EDT) Phosphorus 3.9 2.5 - 4.5 mg/dL [facility] Blood specimen (specimen) 09/19/2015 6:14 AM EDT 09/19/2015 6:23 AM EDT Narrative Resulting Agency Comment Spec In Lab Larry Larkin MD CHEMISTRY ORDERABLES Performing Organization Address [facility] Co de Phone Number [facility] [place] [address] * Magnesium (09/19/2015 6:14 AM EDT) Magnesium 0.85 0.69 - 1.07 mmol/L [facility] Blood specimen (specimen) 09/19/2015 6:14 AM EDT 09/19/2015 6:23 AM EDT Narrative Resulting Agency Comment Spec In Lab Larry Larkin MD CHEMISTRY ORDERABLES Performing Organization Address City/[facility]/ZIP Co de Phone Number [facility] [place] [place] [address] * (ABNORMAL) Basic Metabolic Panel (non-fasting) (09/19/2015 6:14 AM EDT) Glucose 138 65 - 199 mg/dL [facility] Comment:Diabetes: >=200 mg/d L plus symptoms Blood Urea Nitrogen 64(H) 10 - 20 mg/dL [facility] Creatinine 3.25(H) 0.80 - 1.50 mg/dL [facility] Comment: result rechecked-[facility] Please note that the pediatric reference intervals supplied above were not validated at [facility]. Results from pediatric patients should be interpreted in conjunction to the patient's age, height and muscle mass. Sodium 142 135 - 145 mmol/L [facility] Potassium 4.6 3.5 - 5.0 mmol/L [facility] Comment: Please note: ??Patients with WBC >100,000 may have falsely elevated Potassium levels. ??For accurate Potassium quantification in these patients send serum separator tube (gold top) for subsequent determinations. ??Contact the Clinical Chemistry Laboratory if there are any questions. Chloride 108(H) 98 - 107 mmol/L [facility] Carbon Dioxide 21(L) 22 - 31 mmol/L [facility] Anion Gap 13 5 - 15 mmol/L [facility] Calcium 8.8 8.5 - 10.5 mg/dL [facility] Est Glomerular Filtration Rate 19(L) >=60 [facility] Comment: This [...] the following links into your internet browser. [email or web address] Blood specimen (specimen) 09/19/2015 6:14 AM EDT 09/19/2015 6:23 AM EDT Narrative Resulting Agency Comment Spec In Lab Larry Larkin MD CHEMISTRY ORDERABLES Performing Organization Address [facility] Co de Phone Number [facility] [place] [place] [address] * (ABNORMAL) Complement, Total (09/19/2015 6:14 AM EDT) Complement, Total 22(L) 30 - 75 unit/mL [facility] Comment: Test Performed by: [facility] [place] [address] [employer] Driver: Rosetta Conway, Ph.D. Blood specimen (specimen) 09/19/2015 6:14 AM EDT 09/19/2015 9:09 AM EDT Narrative Resulting Agency Comment Spec In Lab Larry Larkin MD CHEMISTRY ORDERABLES Performing Organization Address [facility] Co de Phone Number [facility] [place] [place] [address] * C4 Complement (09/19/2015 6:14 AM EDT) Complement C4 29 10 - 40 mg/dL [facility] Blood specimen (specimen) 09/19/2015 6:14 AM EDT 09/19/2015 6:23 AM EDT Narrative Resulting Agency Comment Spec In Lab Larry Larkin MD CHEMISTRY ORDERABLES Performing Organization Address [facility] Co de Phone Number [facility] [place] [place] [address] * C3 Complement (09/19/2015 6:14 AM EDT) Complement C3 100 90 - 180 mg/dL [facility] Blood specimen (specimen) 09/19/2015 6:14 AM EDT 09/19/2015 6:23 AM EDT Narrative Resulting Agency Comment Spec In Lab Larry Larkin MD CHEMISTRY ORDERABLES Performing Organization Address [facility] Co de Phone Number [facility] [place] [address] * POCT Glucose (09/18/2015 8:45 PM EDT) Glucose, POC 186 65 - 199 mg/dL [facility] Comment: Supplemental ranges: <140 mg/dL before meals <180 mg/dL all other times of the day Blood specimen (specimen) 09/18/2015 8:45 PM EDT 09/18/2015 8:45 PM EDT Larry Larkin MD POINT OF CARE TEST O RDMILAGROS Performing Organization Address [facility] Co de Phone Number [facility] [place] [place] [address] * POCT Glucose (09/18/2015 3:48 PM EDT) Glucose, POC 173 65 - 199 mg/dL [facility] Comment: Supplemental ranges: <140 mg/dL before meals <180 mg/dL all other times of the day Blood specimen (specimen) 09/18/2015 3:48 PM EDT 09/18/2015 3:48 PM EDT Larry Larkin MD POINT OF CARE TEST O TED Performing Organization Address [facility] Co de Phone Number [facility] [place] [address] * POCT Glucose (09/18/2015 12:10 PM EDT) Glucose, POC 186 65 - 199 mg/dL [facility] Comment: Supplemental ranges: <140 mg/dL before meals <180 mg/dL all other times of the day Blood specimen (specimen) 09/18/2015 12:10 PM EDT 09/18/2015 12:10 PM EDT Larry Larkin MD POINT OF CARE TEST O TED [facility] [place] [address] * POCT Glucose (09/18/2015 7:58 AM EDT) Pathologist [facility] Glucose, POC 133 65 - 199 mg/dL [facility] Comment: Supplemental ranges: <140 mg/dL before meals <180 mg/dL all other times of the day Blood specimen (specimen) 09/18/2015 7:58 AM EDT 09/18/2015 7:58 AM EDT Larry Larkin MD POINT OF CARE TEST O RDERABLES Performing Organization Address [facility] Co de Phone Number [facility] [place] [address] * (ABNORMAL) Differential, Automated (09/18/2015 2:31 AM EDT) [facility] Neutrophil % 92.1 % [facility] Neutrophil Absolute 13.35(H) 1.50 - 6.30 x10(3)/mc L [facility] Lymph % 4.5 % [facility] Lymphocytes Abs 0.6(L) 1.0 - 3.6 x10(3)/mc L [facility] Monocyte % 3.0 % [facility] Monocyte Abs 0.4 0.2 - 1.0 x10(3)/mc L [facility] Eos % 0.0 % [facility] Eosinophils Abs 0.0 0.0 - 0.5 x10(3)/mc L [facility] Basophil % 0.1 % [facility] Baso Absolute 0.0 0.0 - 0.2 x10(3)/mc L [facility] Immature Gran % 0.30 % [facility] Comment: Immature granulocytes(IG's)percentage and absolute count will include metamyelocytes, myelocytes, and promyelocytes. Blood smears from CBCs yielding IG's will be scanned manually for concordance. If this scan disagrees with the automated IG or if promyelocytes are noted, a manual differential will be performed. Immature Gran Absolute 0.04 0.00 - 0.05 x10(3)/mc L [facility] Blood specimen (specimen) 09/18/2015 2:31 AM EDT 09/18/2015 2:50 AM EDT Narrative Resulting Agency Comment Spec In Lab Larry Larkin MD HEMATOLOGY ORDERABLE S [facility] [place] [address] * (ABNORMAL) Hemogram (09/18/2015 2:31 AM EDT) White Blood Cell 14.5(H) 4.0 - 10.0 x10(3)/mc L [facility] Red Blood Cell 3.13(L) 4.63 - 6.08 x10(6)/[facility] Hemoglobin 9.7(L) 13.7 - 17.5 gm/dL [facility] Hematocrit 29.3(L) 40.0 - 51.0 % [facility] Mean Cell Volume 93.6(H) 79.0 - 92.0 fL [facility] Mean Cell Hemoglobin 31.0 25.6 - 32.2 pg [facility] Mean Cell Hemoglobin Concentration 33.1 32.0 - 36.5 gm/dL [facility] Platelet 233 145 - 370 x10(3)/mc L [facility] RDW Standard Deviation 48.8(H) 35.0 - 46.0 fL [facility] RDW coefficient of variation 14.3 10.9 - 14.4 % [facility] Mean Platelet Volume 9.3 9.0 - 12.0 fL [facility] Blood specimen (specimen) 09/18/2015 2:31 AM EDT 09/18/2015 2:50 AM EDT Narrative Resulting Agency Comment Spec In Lab Larry Larkin MD HEMATOLOGY ORDERABLE S Performing Organization Address [facility] Co de Phone Number [facility] [place] [place] [address] * (ABNORMAL) Hepatic Function Panel (09/18/2015 2:31 AM EDT) [facility] Protein, Total 6.1 6.1 - 8.0 gm/dL [facility] Albumin 3.1(L) 3.2 - 5.2 gm/dL [facility] Aspartate Aminotransferase 21 0 - 39 unit/L [facility] Alanine Aminotransferase 14 0 - 55 unit/L [facility] Alkaline Phosphatase 49 40 - 120 unit/L [facility] Bilirubin, Total 0.4 0.2 - 1.3 mg/dL [facility] Bilirubin, Direct 0.1 0.0 - 0.3 mg/dL [facility] Blood specimen (specimen) 09/18/2015 2:31 AM EDT 09/18/2015 2:50 AM EDT Narrative Resulting Agency Comment Spec In Lab Larry Larkin MD CHEMISTRY ORDERABLES Performing Organization Address [facility] Co de Phone Number [facility] [place] [address] * (ABNORMAL) Phosphorus (09/18/2015 2:31 AM EDT) [facility] Phosphorus 5.5(H) 2.5 - 4.5 mg/dL [facility] Blood specimen (specimen) 09/18/2015 2:31 AM EDT 09/18/2015 2:50 AM EDT Narrative Resulting Agency Comment Spec In Lab Larry Larkin MD CHEMISTRY ORDERABLES Performing Organization Address [facility] Co de Phone Number [facility] [place] [place] [address] * Magnesium (09/18/2015 2:31 AM EDT) [facility] Magnesium 0.77 0.69 - 1.07 mmol/L [facility] Blood specimen (specimen) 09/18/2015 2:31 AM EDT 09/18/2015 2:50 AM EDT Narrative Resulting Agency Comment Spec In Lab Larry Larkin MD CHEMISTRY ORDERABLES [facility] [place] [place] [address] * (ABNORMAL) Basic Metabolic Panel (non-fasting) (09/18/2015 2:31 AM EDT) Glucose 168 65 - 199 mg/dL [facility] Comment:Diabetes: >=200 mg/d L plus symptoms Blood Urea Nitrogen 69(H) 10 - 20 mg/dL [facility] Creatinine 6.26(H) 0.80 - 1.50 mg/dL [facility] Comment: Please note that the pediatric reference intervals supplied above were not validated at [facility]. Results from pediatric patients should be interpreted [...] LABORATORY Est Glomerular Filtration Rate 9(L) >=60 [facility] Comment: This [...] the following links into your internet browser. [email or web address] Blood specimen (specimen) 09/18/2015 2:31 AM EDT 09/18/2015 2:50 AM EDT Narrative Resulting Agency Comment Spec In Lab Larry Larkin MD CHEMISTRY ORDERABLES [facility] [place] [place] [address] * (ABNORMAL) Basic Metabolic Panel (non-fasting) (09/17/2015 9:55 PM EDT) Glucose 190 65 - 199 mg/dL [facility] Comment:Diabetes: >=200 mg/d L plus symptoms Blood Urea Nitrogen 67(H) 10 - 20 mg/dL [facility] Creatinine 6.73(H) 0.80 - 1.50 mg/dL [facility] Comment: Please note that the pediatric reference intervals supplied above were not validated at [facility]. Results from pediatric patients should be interpreted in conjunction to the patient's age, height and muscle mass. Sodium 137 135 - 145 mmol/L [facility] Potassium 5.0 3.5 - 5.0 mmol/L [facility] Comment: Please note: ??Patients with WBC >100,000 may have falsely elevated Potassium levels. ??For accurate Potassium quantification in these patients send serum separator tube (gold top) for subsequent determinations. ??Contact the Clinical Chemistry Laboratory if there are any questions. Chloride 101 98 - 107 mmol/L [facility] Carbon Dioxide 19(L) 22 - 31 mmol/L [facility] Anion Gap 17(H) 5 - 15 mmol/L [facility] Calcium 8.5 8.5 - 10.5 mg/dL [facility] Est Glomerular Filtration Rate 8(L) >=60 [facility] Comment: This [...] the following links into your internet browser. [email or web address] Blood specimen (specimen) 09/17/2015 9:55 PM EDT 09/17/2015 9:59 PM EDT Narrative Resulting Agency Comment Spec In Lab Larry Larkin MD CHEMISTRY ORDERABLES Performing Organization Address City/State/[facility] Co de Phone Number [facility] [place] [address] * Renal Transplant Left (09/17/2015 12:37 PM EDT) Anatomical Region Laterality Modality Abdomen Left Ultrasound 09/17/2015 1:09 PM EDT Narrative 09/17/2015 1:39 PM EDT Transplant ? (Signed Final 09/17/2015 01:38 pm) Patient Info ID #: ? [id number] ? : [birth year] (65 yrs) Name: ? ETHEL BOLDEN ? Visit Date:09/17/2015 01:09 pm Performed By Performed By: ? Jessee Espinal RDMS Attending: ?Jewel GERBER, Preeti Sanford Associate: ?Alan GERBER, Victor Manuel Sanford Referred By: ?LARRY LARKIN MD Service(s) Provided ??URTPL - Ultrasound Renal Transplant - Left - [id number] Indications ??POD#1 s/p renal transplant on Left; [...] Final 09/17/2015 01:38pm) Patient Info ID #: [id number] : [birth year] (65 yrs) Name: ETHEL Gomez KENIAMARIALUISARAMÓN Visit Date:09/17/2015 01:09 pm Performed By Performed By: Jessee Espinal RDMS Attending: Preeti Holloway MD Associate: Victor Manuel Phillips MD Referred By: LARRY LARKIN MD Service(s) Provided URTPL - Ultrasound Renal Transplant - Left - [id number] Indications POD#1 s/p renal transplant on Left; [...] Report 09/17/2015 01:38 pm Larry Larkin MD IMG US GEN ORDERABLE S * (ABNORMAL) Differential, Automated (09/17/2015 11:31 AM EDT) Neutrophil % 88.3 % [facility] Neutrophil Absolute 14.45(H) 1.50 - 6.30 x10(3)/mc L [facility] Lymph % 3.1 % [facility] Lymphocytes Abs 0.5(L) 1.0 - 3.6 x10(3)/mc L [facility] Monocyte % 8.3 % [facility] Monocyte Abs 1.4(H) 0.2 - 1.0 x10(3)/mc L [facility] Eos % 0.0 % [facility] Eosinophils Abs 0.0 0.0 - 0.5 x10(3)/mc L [facility] Basophil % 0.1 % [facility] Baso Absolute 0.0 0.0 - 0.2 x10(3)/mc L [facility] Immature Gran % 0.20 % [facility] Comment: Immature granulocytes(IG's)percentage and absolute count will include metamyelocytes, myelocytes, and promyelocytes. Blood smears from CBCs yielding IG's will be scanned manually for concordance. If this scan disagrees with the automated IG or if promyelocytes are noted, a manual differential will be performed. Immature Gran Absolute 0.03 0.00 - 0.05 x10(3)/mc L [facility] Blood specimen (specimen) 09/17/2015 11:31 AM EDT 09/17/2015 11:38 AM EDT Narrative Resulting Agency Comment Spec In Lab Larry Larkin MD HEMATOLOGY ORDERABLE S [facility] [place] [address] * (ABNORMAL) Hemogram (09/17/2015 11:31 AM EDT) Pathologist [facility] White Blood Cell 16.4(H) 4.0 - 10.0 x10(3)/ L [facility] Red Blood Cell 3.60(L) 4.63 - 6.08 x10(6)/ L [facility] Hemoglobin 11.1(L) 13.7 - 17.5 gm/dL [facility] Hematocrit 33.9(L) 40.0 - 51.0 % [facility] Mean Cell Volume 94.2(H) 79.0 - 92.0 fL [facility] Mean Cell Hemoglobin 30.8 25.6 - 32.2 pg [facility] Mean Cell Hemoglobin Concentration 32.7 32.0 - 36.5 gm/dL [facility] Platelet 276 145 - 370 x10(3)/[facility] RDW Standard Deviation 49.3(H) 35.0 - 46.0 fL [facility] RDW coefficient of variation 14.3 10.9 - 14.4 % [facility] Mean Platelet Volume 9.4 9.0 - 12.0 fL [facility] Blood specimen (specimen) 09/17/2015 11:31 AM EDT 09/17/2015 11:38 AM EDT Narrative Resulting Agency Comment Spec In Lab Larry Larkin MD HEMATOLOGY ORDERABLE S [facility] [place] [address] * HIV Quant (09/17/2015 11:31 AM EDT) Pathologist [facility] HIV Viral Load Result (Qualitative) * RESULT: [...] Administration. Gibson Good, Ph.D. Director, Molecular Pathology [facility] Comment: [VERIFIED DATE]09.21.15 Verified By:Xiomy Gupta (Electronic Signature) Blood specimen (specimen) 09/17/2015 11:31 AM EDT 09/20/2015 2:24 PM EDT Narrative Resulting Agency Comment Spec In Lab Que Amaro MD HEMATOLOGY ORD MILAGROS Performing Organization Address [facility] Co de Phone Number [facility] [place] [address] * HBV Quant (09/17/2015 11:31 AM EDT) Pathologist [facility] Hepatitis B DNA, quantitative, PCR Result: <20 [...] This assay is being performed in the [facility] Molecular Pathology Laboratory. Gibson Good, Ph.D. Director, Molecular Pathology [facility] Blood specimen (specimen) 09/17/2015 11:31 AM EDT 09/21/2015 9:44 AM EDT Narrative Resulting Agency Comment Spec In Lab Que Amaro MD CHEMISTRY ORDBhargav JENNINGS Performing Organization Address [facility] Co de Phone Number [facility] [place] [address] * (ABNORMAL) Potassium (09/17/2015 11:31 AM EDT) Potassium 5.6(H) 3.5 - 5.0 mmol/L [facility] Larkin MD CHEMISTRY ORDERABLES Performing Organization Address City/[facility]/ZIP Co de Phone Number [facility] [place] [address] * Blood culture (09/17/2015 10:36 AM EDT) Blood Culture No growth at 5 days. [facility] Blood specimen (specimen) ARTERIAL LINE / Unknown 09/17/2015 10:36 AM EDT 09/17/2015 10:46 AM EDT Narrative Resulting Agency Comment Spec In Lab Larry Larkin MD MICROBIOLOGY - BLOOD ORDERABLES Performing Organization Address City/[facility]/ZIP Co de Phone Number [facility] [place] [address] * Hep C Viral RNA NS3 Genotype (09/17/2015 10:17 AM EDT) HCV RNA NS3 Genotype See Note [facility] Comment: Please see scanned report in Chart Review under the Non-DH Laboratory Heading. Test performed by [employer], [address] [place] [address] Blood specimen (specimen) 09/17/2015 10:17 AM EDT 09/17/2015 11:42 AM EDT Narrative Resulting Agency Comment Spec In Lab Larry Larkin MD CHEMISTRY ORDERABLES Performing Organization Address City/[facility]/ZIP Co de Phone Number [facility] [place] [address] * Hepatitis C RNA, quantitative, PCR (09/17/2015 10:17 AM EDT) HCV Viral Load 323,972 IU/mL [facility] HCV Viral Load Result: [id number] IU/mL Indication for Study: Hepatitis C Infection Analysis: A quantitiative real time reverse transcriptase PCR assay was performed on extracted viral RNA for the purpose of quantification. Sample: plasma (1 mL minimum volume) Method: Kirsten Nik TaqMAN 48 HCV Linear Range: 15 IU/mL - 100,000,000IU/mL (95% CI) Note: This assay is being performed in the [facility] Molecular Pathology Laboratory. Gibson Good, Ph.D. Director, Molecular Pathology [facility] Comment: [VERIFIED DATE]09.21.15 Verified By:Xiomy Gupta (Electronic Signature) Blood specimen (specimen) 09/17/2015 10:17 AM EDT 09/20/2015 2:34 PM EDT Narrative Resulting Agency Comment Spec In Lab Larry Larkin MD MOLECULAR ORDERABLES Performing Organization Address City/[facility] Co de Phone Number [facility] [place] [place] [address] * Blood culture (09/17/2015 10:17 AM EDT) Blood Culture No growth at 5 days. [facility] Blood specimen (specimen) ANTECUBITAL REGION STRUCTURE / Unknown 09/17/2015 10:17 AM EDT 09/17/2015 10:46 AM EDT Narrative Resulting Agency Comment Spec In Lab Larry Larkin MD MICROBIOLOGY - BLOOD ORDERABLES Performing Organization Address City/[facility]/ZIP Co de Phone Number [facility] [place] [address] * (ABNORMAL) Phosphorus (09/17/2015 9:17 AM EDT) [facility] Phosphorus 6.9(H) 2.5 - 4.5 mg/dL [facility] Blood specimen (specimen) Venous Draw / Unknown 09/17/2015 9:17 AM EDT 09/17/2015 9:41 AM EDT Narrative Resulting Agency Comment Spec In Lab Larry Larkin MD CHEMISTRY ORDERABLES Performing Organization Address City/[facility]/ZIP Co de Phone Number [facility] [place] [address] * Magnesium (09/17/2015 9:17 AM EDT) [facility] Magnesium 0.75 0.69 - 1.07 mmol/L [facility] Blood specimen (specimen) Venous Draw / Unknown 09/17/2015 9:17 AM EDT 09/17/2015 9:41 AM EDT Narrative Resulting Agency Comment Spec In Lab Larry Larkin MD CHEMISTRY ORDERABLES Performing Organization Address City/[facility]/ZIP Co de Phone Number [facility] [place] [address] * (ABNORMAL) Differential, Automated (09/17/2015 9:17 AM EDT) [facility] Neutrophil % 90.3 % [facility] Neutrophil Absolute 13.67(H) 1.50 - 6.30 x10(3)/mc L [facility] Lymph % 3.7 % [facility] Lymphocytes Abs 0.6(L) 1.0 - 3.6 x10(3)/mc L [facility] Monocyte % 5.6 % [facility] Monocyte Abs 0.8 0.2 - 1.0 x10(3)/mc L [facility] Eos % 0.0 % [facility] Eosinophils Abs 0.0 0.0 - 0.5 x10(3)/mc L [facility] Basophil % 0.1 % [facility] Baso Absolute 0.0 0.0 - 0.2 x10(3)/ L [facility] Immature Gran % 0.30 % [facility] [...] 0.04 0.00 - 0.05 x10(3)/[facility] Blood specimen (specimen) 09/17/2015 9:17 AM EDT 09/17/2015 9:41 AM EDT Narrative Resulting Agency Comment Spec In Lab Larry Larkin MD HEMATOLOGY ORDERABLE S Performing Organization Address City/State/[facility] Co de Phone Number [facility] [place] [address] * (ABNORMAL) Hemogram (09/17/2015 9:17 AM EDT) White Blood Cell 15.1(H) 4.0 - 10.0 x10(3)/ L [facility] Red Blood Cell 3.58(L) 4.63 - 6.08 x10(6)/ L [facility] Hemoglobin 11.3(L) 13.7 - 17.5 gm/dL [facility] Hematocrit 33.3(L) 40.0 - 51.0 % [facility] Mean Cell Volume 93.0(H) 79.0 - 92.0 fL [facility] Mean Cell Hemoglobin 31.6 25.6 - 32.2 pg [facility] Mean Cell Hemoglobin Concentration 33.9 32.0 - 36.5 gm/dL [facility] Platelet 271 145 - 370 x10(3)/ L [facility] RDW Standard Deviation 49.5(H) 35.0 - 46.0 fL [facility] RDW coefficient of variation 14.5(H) 10.9 - 14.4 % [facility] Mean Platelet Volume 9.5 9.0 - 12.0 fL [facility] Blood specimen (specimen) 09/17/2015 9:17 AM EDT 09/17/2015 9:41 AM EDT Narrative Resulting Agency Comment Spec In Lab Larry Larkin MD HEMATOLOGY ORDERABLE S [facility] [place] [address] * (ABNORMAL) Comprehensive metabolic panel (non-fasting) (09/17/2015 9:17 AM EDT) Glucose 157 65 - 199 mg/dL [facility] Comment:Diabetes: >=200 mg/d L plus symptoms Blood Urea Nitrogen 59(H) 10 - 20 mg/dL [facility] Creatinine 6.96(H) 0.80 - 1.50 mg/dL [facility] Comment: Please note that the pediatric reference intervals supplied above were not validated at [facility]. Results from pediatric patients should be interpreted in conjunction to the patient's age, height and muscle mass. Sodium 137 135 - 145 mmol/L [facility] Potassium Not Perf 3.5 - 5.0 mmol/L [facility] Comment: Unable to [...] [facility] Carbon Dioxide 16(L) 22 - 31 mmol/L [facility] Anion Gap 21(H) 5 - 15 mmol/L [facility] Calcium 8.6 8.5 - 10.5 mg/dL [facility] Protein, Total 6.7 6.1 - 8.0 gm/dL [facility] Albumin 3.5 3.2 - 5.2 gm/dL [facility] Aspartate Aminotransferase Not Perf 0 - 39 unit/L [facility] Comment: Unable to quantitate due to sample hemolysis. ??Sample redraw suggested. Called by:nasra _, Read back by: rafy hooker, Date/Time:09/17/15 10:48. Alanine Aminotransferase 18 0 - 55 unit/L [facility] Alkaline Phosphatase 57 40 - 120 unit/L [facility] Bilirubin, Total 0.7 0.2 - 1.3 mg/dL [facility] Bilirubin, Direct Not Perf 0.0 - 0.3 mg/dL [facility] Comment: Unable to quantitate due to sample hemolysis. ??Sample redraw suggested. Called by:nasra _, Read back by: rafy hooker, Date/Time:09/17/15 10:48. Est Glomerular Filtration Rate 8(L) >=60 [facility] [...] the following links into your internet browser. [email or web address] Blood specimen (specimen) 09/17/2015 9:17 AM EDT 09/17/2015 9:41 AM EDT Narrative Resulting Agency Comment Spec In Lab Larry Larkin MD CHEMISTRY ORDERABLES [facility] [place] [address] * Vancomycin, trough (09/17/2015 9:17 AM EDT) Pathologist [facility] Vancomycin, Trough 24.6 mg/L [facility] [...] Larkin MD CHEMISTRY ORDERABLES Performing Organization Address [facility]/ZIP Co de Phone Number [facility] [place] [address] * POCT Glucose (09/17/2015 8:58 AM EDT) [facility] Glucose, POC 143 65 - 199 mg/dL [facility] Comment: Supplemental ranges: <140 mg/dL before meals <180 mg/dL all other times of the day Blood specimen (specimen) 09/17/2015 8:58 AM EDT 09/17/2015 8:58 AM EDT Larry Larkin MD POINT OF CARE TEST O RDERABLES [facility] [place] [address] * (ABNORMAL) Differential, Automated (09/17/2015 3:30 AM EDT) Pathologist [facility] Neutrophil % 92.5 % [facility] Neutrophil Absolute 12.16(H) 1.50 - 6.30 x10(3)/mc L [facility] Lymph % 3.6 % [facility] Lymphocytes Abs 0.5(L) 1.0 - 3.6 x10(3)/[facility] Monocyte % 3.5 % [facility] Monocyte Abs 0.5 0.2 - 1.0 x10(3)/[facility] Eos % 0.1 % [facility] Eosinophils Abs 0.0 0.0 - 0.5 x10(3)/[facility] Basophil % 0.1 % [facility] Baso Absolute 0.0 0.0 - 0.2 x10(3)/[facility] Immature Gran % 0.20 % [facility] Comment: [...] [facility] Blood specimen (specimen) 09/17/2015 3:30 AM EDT 09/17/2015 3:36 AM EDT Narrative Resulting Agency Comment Spec In Lab Larry Larkin MD HEMATOLOGY ORDERABLE S [facility] [place] [address] * (ABNORMAL) Hemogram (09/17/2015 3:30 AM EDT) White Blood Cell 13.1(H) 4.0 - 10.0 x10(3)/[facility] Red Blood Cell 3.56(L) 4.63 - 6.08 x10(6)/[facility] Hemoglobin 11.2(L) 13.7 - 17.5 gm/dL [facility] Hematocrit 32.8(L) 40.0 - 51.0 % [facility] Mean Cell Volume 92.1(H) 79.0 - 92.0 fL [facility] Mean Cell Hemoglobin 31.5 25.6 - 32.2 pg [facility] Mean Cell Hemoglobin Concentration 34.1 32.0 - 36.5 gm/dL [facility] Platelet 223 145 - 370 x10(3)/mc L [facility] RDW Standard Deviation 48.0(H) 35.0 - 46.0 fL [facility] RDW coefficient of variation 14.3 10.9 - 14.4 % [facility] Mean Platelet Volume 9.4 9.0 - 12.0 fL [facility] Blood specimen (specimen) 09/17/2015 3:30 AM EDT 09/17/2015 3:36 AM EDT Narrative Resulting Agency Comment Spec In Lab Larry Larkin MD HEMATOLOGY ORDERABLE S Performing Organization Address City/[facility]/ZIP Co de Phone Number [facility] [place] [address] * (ABNORMAL) Phosphorus (09/17/2015 3:30 AM EDT) Phosphorus 6.7(H) 2.5 - 4.5 mg/dL [facility] Blood specimen (specimen) 09/17/2015 3:30 AM EDT 09/17/2015 3:36 AM EDT Narrative Resulting Agency Comment Spec In Lab Larry Larkin MD CHEMISTRY ORDERABLES Performing Organization Address City/[facility]/ZIP Co de Phone Number [facility] [place] [address] * Magnesium (09/17/2015 3:30 AM EDT) Magnesium 0.73 0.69 - 1.07 mmol/L [facility] Blood specimen (specimen) 09/17/2015 3:30 AM EDT 09/17/2015 3:36 AM EDT Narrative Resulting Agency Comment Spec In Lab Larry Larkin MD CHEMISTRY ORDERABLES [facility] [place] [address] * (ABNORMAL) Comprehensive metabolic panel (non-fasting) (09/17/2015 3:30 AM EDT) Glucose 160 65 - 199 mg/dL [facility] Comment:Diabetes: >=200 mg/d L plus symptoms Blood Urea Nitrogen 52(H) 10 - 20 mg/dL [facility] Creatinine 6.94(H) 0.80 - 1.50 mg/dL [facility] Comment: Please note that the pediatric reference intervals supplied above were not validated at [facility]. Results from pediatric patients should be interpreted in conjunction to the patient's age, height and muscle mass. Sodium 137 135 - 145 mmol/L [facility] Potassium 5.7(H) 3.5 - 5.0 mmol/L [facility] [...] mmol/L [facility] Calcium 8.3(L) 8.5 - 10.5 mg/dL [facility] Protein, Total 6.4 6.1 - 8.0 gm/dL [facility] Albumin 3.3 3.2 - 5.2 gm/dL [facility] Aspartate Aminotransferase 20 0 - 39 unit/L [facility] Alanine Aminotransferase 16 0 - 55 unit/L [facility] Alkaline Phosphatase 55 40 - 120 unit/L [facility] Bilirubin, Total 0.6 0.2 - 1.3 mg/dL [facility] the following links into your internet browser. [email or web address] Blood specimen (specimen) 09/17/2015 3:30 AM EDT 09/17/2015 3:36 AM EDT Narrative Resulting Agency Comment Spec In Lab Larry Larkin MD CHEMISTRY ORDERABLES [facility] [place] [place] [address] * (ABNORMAL) Differential, Automated (09/16/2015 9:50 PM EDT) Neutrophil % 92.3 % [facility] Neutrophil Absolute 12.45(H) 1.50 - 6.30 x10(3)/mc L [facility] Lymph % 3.6 % [facility] Lymphocytes Abs 0.5(L) 1.0 - 3.6 x10(3)/mc L [facility] Monocyte % 3.6 % [facility] Monocyte Abs 0.5 0.2 - 1.0 x10(3)/mc L [facility] Eos % 0.1 % [facility] Eosinophils Abs 0.0 0.0 - 0.5 x10(3)/mc L [facility] Basophil % 0.1 % [facility] Baso Absolute 0.0 0.0 - 0.2 x10(3)/mc L [facility] Immature Gran % 0.30 % [facility] [...] 0.04 0.00 - 0.05 x10(3)/[facility] Blood specimen (specimen) 09/16/2015 9:50 PM EDT 09/16/2015 10:05 PM EDT Narrative Resulting Agency Comment Spec In Lab Larry Larkin MD HEMATOLOGY ORDERABLE S [facility] [place] [address] * (ABNORMAL) Hemogram (09/16/2015 9:50 PM EDT) White Blood Cell 13.5(H) 4.0 - 10.0 x10(3)/[facility] Red Blood Cell 3.70(L) 4.63 - 6.08 x10(6)/ L [facility] Hemoglobin 11.7(L) 13.7 - 17.5 gm/dL [facility] Hematocrit 33.9(L) 40.0 - 51.0 % [facility] Mean Cell Volume 91.6 79.0 - 92.0 fL [facility] Mean Cell Hemoglobin 31.6 25.6 - 32.2 pg [facility] Mean Cell Hemoglobin Concentration 34.5 32.0 - 36.5 gm/dL [facility] Platelet 227 145 - 370 x10(3)/ L [facility] RDW Standard Deviation 47.7(H) 35.0 - 46.0 fL [facility] RDW coefficient of variation 14.3 10.9 - 14.4 % [facility] Mean Platelet Volume 9.5 9.0 - 12.0 fL [facility] Blood specimen (specimen) 09/16/2015 9:50 PM EDT 09/16/2015 10:05 PM EDT Narrative Resulting Agency Comment Spec In Lab Larry Larkin MD HEMATOLOGY ORDERABLE S Performing Organization Address City/[facility]/ZIP Co de Phone Number [facility] [place] [address] * (ABNORMAL) Phosphorus (09/16/2015 9:50 PM EDT) Phosphorus 6.2(H) 2.5 - 4.5 mg/dL [facility] Blood specimen (specimen) 09/16/2015 9:50 PM EDT 09/16/2015 10:05 PM EDT Narrative Resulting Agency Comment Spec In Lab Larry Larkin MD CHEMISTRY ORDERABLES Performing Organization Address [facility]/ZIP Co de Phone Number [facility] [place] [place] [address] * Magnesium (09/16/2015 9:50 PM EDT) Magnesium 0.75 0.69 - 1.07 mmol/L [facility] Blood specimen (specimen) 09/16/2015 9:50 PM EDT 09/16/2015 10:05 PM EDT Narrative Resulting Agency Comment Spec In Lab Larry Larkin MD CHEMISTRY ORDERABLES Performing Organization Address [facility]/ZIP Co de Phone Number [facility] [place] [address] * (ABNORMAL) Comprehensive metabolic panel (non-fasting) (09/16/2015 9:50 PM EDT) Glucose 158 65 - 199 mg/dL [facility] Comment:Diabetes: >=200 mg/d L plus symptoms Blood Urea Nitrogen 48(H) 10 - 20 mg/dL [facility] Creatinine 6.94(H) 0.80 - 1.50 mg/dL [facility] Comment: Please note that the pediatric reference intervals supplied above were not validated at [facility]. Results from pediatric patients should be interpreted in conjunction to the patient's age, height and muscle mass. Sodium 138 135 - 145 mmol/L [facility] Potassium 5.3(H) 3.5 - 5.0 mmol/L [facility] Protein, Total 6.6 6.1 - 8.0 gm/dL [facility] Albumin 3.4 3.2 - 5.2 gm/dL [facility] Aspartate Aminotransferase 19 0 - 39 unit/L [facility] Alanine Aminotransferase 17 0 - 55 unit/L [facility] Alkaline Phosphatase 59 40 - 120 unit/L [facility] the following links into your internet browser. [email or web address] Blood specimen (specimen) 09/16/2015 9:50 PM EDT 09/16/2015 10:05 PM EDT Narrative Resulting Agency Comment Spec In Lab Larry Larkin MD CHEMISTRY ORDERABLES Performing Organization Address [facility] Co de Phone Number [facility] [place] [address] * POCT Glucose (09/16/2015 5:36 PM EDT) [facility] Glucose, POC 135 65 - 199 mg/dL [facility] Comment: Supplemental ranges: <140 mg/dL before meals <180 mg/dL all other times of the day Blood specimen (specimen) 09/16/2015 5:36 PM EDT 09/16/2015 5:36 PM EDT Larry Larkin MD POINT OF CARE TEST O RDERABLES Performing Organization Address [facility] Co de Phone Number [facility] [place] [address] * (ABNORMAL) Differential, Automated (09/16/2015 3:29 PM EDT) [facility] Neutrophil % 88.2 % [facility] Neutrophil Absolute 6.47(H) 1.50 - 6.30 x10(3)/mc L [facility] Lymph % 8.3 % [facility] Lymphocytes Abs 0.6(L) 1.0 - 3.6 x10(3)/mc L [facility] Monocyte % 1.5 % [facility] Monocyte Abs 0.1(L) 0.2 - 1.0 x10(3)/mc L [facility] Eos % 1.6 % [facility] Eosinophils Abs 0.1 0.0 - 0.5 x10(3)/mc L [facility] Basophil % 0.3 % [facility] Baso Absolute 0.0 0.0 - 0.2 x10(3)/ L [facility] Immature Gran % 0.10 % [facility] Comment: Immature granulocytes(IG's)percentage and absolute count will include metamyelocytes, myelocytes, and promyelocytes. Blood smears from CBCs yielding IG's will be scanned manually for concordance. If this scan disagrees with the automated IG or if promyelocytes are noted, a manual differential will be performed. Immature Gran Absolute 0.01 0.00 - 0.05 x10(3)/ L [facility] Blood specimen (specimen) 09/16/2015 3:29 PM EDT 09/16/2015 3:29 PM EDT Narrative Resulting Agency Comment Spec In Lab Larry Larkin MD HEMATOLOGY ORDERABLE S [facility] [place] [address] * (ABNORMAL) Hemogram (09/16/2015 3:29 PM EDT) White Blood Cell 7.3 4.0 - 10.0 x10(3)/ L [facility] Red Blood Cell 3.65(L) 4.63 - 6.08 x10(6)/ L [facility] Hemoglobin 11.5(L) 13.7 - 17.5 gm/dL [facility] Hematocrit 33.3(L) 40.0 - 51.0 % [facility] Mean Cell Volume 91.2 79.0 - 92.0 fL [facility] Mean Cell Hemoglobin 31.5 25.6 - 32.2 pg [facility] Mean Cell Hemoglobin Concentration 34.5 32.0 - 36.5 gm/dL [facility] Platelet 211 145 - 370 x10(3)/ L [facility] RDW Standard Deviation 46.8(H) 35.0 - 46.0 fL [facility] RDW coefficient of variation 14.1 10.9 - 14.4 % [facility] Mean Platelet Volume 9.3 9.0 - 12.0 fL [facility] Blood specimen (specimen) 09/16/2015 3:29 PM EDT 09/16/2015 3:29 PM EDT Narrative Resulting Agency Comment Spec In Lab Larry Larkin MD HEMATOLOGY ORDERABLE S Performing Organization Address [facility] Co de Phone Number [facility] [place] [address] * APTT (09/16/2015 3:29 PM EDT) Partial Thromboplastin Time 29 25 - 35 sec [facility] Comment: The recommended therapeutic range for full dose, unfractionated heparin at [facility] is 80 ? 114 seconds. The use of the anti-Xa (heparin) level rather than the PTT is recommended for monitoring anticoagulation intensity in critically ill patients receiving unfractionated heparin by continuous IV infusion. Blood specimen (specimen) 09/16/2015 3:29 PM EDT 09/16/2015 3:29 PM EDT Narrative Resulting Agency Comment Spec In Lab Larry Larkin MD HEMATOLOGY ORDERABLE S Performing Organization Address [facility] de Phone Number [facility] [place] [place] [address] * Prothrombin Time (09/16/2015 3:29 PM EDT) Prothrombin Time 14.3 12.0 - 15.0 sec [facility] International Normalization Ratio 1.1 0.9 - 1.1 [facility] Blood specimen (specimen) 09/16/2015 3:29 PM EDT 09/16/2015 3:29 PM EDT Narrative Resulting Agency Comment Spec In Lab Larry Larkin MD HEMATOLOGY ORDERABLE S [facility] [place] [address] * (ABNORMAL) Comprehensive metabolic panel (non-fasting) (09/16/2015 3:29 PM EDT) Glucose 148 65 - 199 mg/dL [facility] Comment:Diabetes: >=200 mg/d L plus symptoms Blood Urea Nitrogen 45(H) 10 - 20 mg/dL [facility] Creatinine 6.99(H) 0.80 - 1.50 mg/dL [facility] Comment: Please note that the pediatric reference intervals supplied above were not validated at [facility]. Results from pediatric patients should be interpreted in conjunction to the patient's age, height and muscle mass. Sodium 136 135 - 145 mmol/L [facility] Potassium 5.0 3.5 - 5.0 mmol/L [facility] Anion Gap 12 5 - 15 mmol/L [facility] Calcium 8.3(L) 8.5 - 10.5 mg/dL [facility] Comment:result rechecked-DANITZA Protein, Total 6.7 6.1 - 8.0 gm/dL [facility] Albumin 3.3 3.2 - 5.2 gm/dL [facility] Aspartate Aminotransferase 19 0 - 39 unit/L [facility] Alanine Aminotransferase 18 0 - 55 unit/L [facility] Alkaline Phosphatase 59 40 - 120 unit/L [facility] Bilirubin, Total 0.9 0.2 - 1.3 mg/dL [facility] [...] the following links into your internet browser. [email or web address] Blood specimen (specimen) 09/16/2015 3:29 PM EDT 09/16/2015 3:29 PM EDT Narrative Resulting Agency Comment Spec In Lab Larry Larkin MD CHEMISTRY ORDERABLES Performing Organization Address City/[facility] Co de Phone Number [facility] [place] [address] * Magnesium (09/16/2015 3:29 PM EDT) Magnesium 0.75 0.69 - 1.07 mmol/L [facility] Blood specimen (specimen) 09/16/2015 3:29 PM EDT 09/16/2015 3:29 PM EDT Narrative Resulting Agency Comment Spec In Lab Larry Larkin MD CHEMISTRY ORDERABLES Performing Organization Address [facility] Co de Phone Number [facility] [place] [address] * POCT Glucose (09/16/2015 3:12 PM EDT) Glucose, POC 125 65 - 199 mg/dL [facility] Comment: Supplemental ranges: <140 mg/dL before meals <180 mg/dL all other times of the day Blood specimen (specimen) 09/16/2015 3:12 PM EDT 09/16/2015 3:12 PM EDT Larry Larkin MD POINT OF CARE TEST O RDERABLES [facility] [place] [place] [address] * (ABNORMAL) BLOOD GAS 2 ARTERIAL (09/16/2015 2:02 PM EDT) pH, Arterial 7.37 7.35 - 7.45 [facility] PCO2, Arterial 43 35 - 45 mmHg [facility] PO2, Arterial 204(H) 85 - 104 mmHg [facility] Bicarbonate, Arterial 24.1 20.0 - 26.0 mmol/L [facility] Base Excess, Arterial -1.1 -3.0 - 3.0 mmol/L [facility] Hgb Blood Gas 11.4(L) 13.7 - 17.5 gm/dL [facility] Oxyhemoglobin, Arterial 98.8(H) 94.0 - 97.0 % [facility] Carboxyhemoglob in, Arterial 0.2 % [facility] Comment: Nonsmokers: 0.5-1.5% COHB Smokers: Variable, but usually less than 10% Toxic: 20-30% COHB Lethal: Greater than 60% COHB Methemoglobin, Arterial 0.3 <=1.5 % [facility] Na Whole Blood 135 135 - 145 mmol/L [facility] K Whole Blood 4.8 3.5 - 5.0 mmol/L [facility] Comment: Please note: Patients with WBC >100,000 may have falsely elevated Potassium levels. Contact the Clinical Chemistry Laboratory if there are any questions. ICa Whole Blood 1.08(L) 1.15 - 1.33 mmol/L [facility] Comment: Note: ??Total bilirubin higher than 20 mg/dL may lead to falsely low ionized calcium. CL Whole Blood 102 98 - 107 mmol/L [facility] Gluc Whole Bld 135 65 - 199 mg/dL [facility] Comment:Diabetes: >=200 mg/d L plus symptoms. Blood specimen (specimen) 09/16/2015 2:02 PM EDT 09/16/2015 2:02 PM EDT Larry Larkin MD POINT OF CARE TEST O RDERABLES Performing Organization Address [facility] Co de Phone Number [facility] [place] [address] * CMV Antibody, IgG (09/16/2015 10:28 AM EDT) CMV IgG Neg Neg [facility] Blood specimen (specimen) 09/16/2015 10:28 AM EDT 09/17/2015 7:28 AM EDT Narrative Resulting Agency Comment Spec In Lab Larry Larkin MD IMMUNOLOGY ORDERABLE S Performing Organization Address [facility] de Phone Number [facility] [place] [address] * EKG 12 Lead (09/16/2015 10:10 AM EDT) Ventricular rate 60 BPM MUSE SYSTEM Atrial Rate 60 BPM MUSE SYSTEM P-R Interval 184 ms MUSE SYSTEM QRS Duration 110 ms MUSE SYSTEM Q-T Interval 476 ms MUSE SYSTEM QTC Calculated (Bezet) 476 ms MUSE SYSTEM Calculated P [place] -14 degrees MUSE SYSTEM Calculated R [place] -44 degrees MUSE SYSTEM Calculated T [place] -26 degrees MUSE SYSTEM INTERPRETATION Sinus rhythm Occasional Premature atrial complexes Left axis deviation Nonspecific T wave abnormality Abnormal ECG When compared with ECG of 29-MAY-2015 10:24, T wave inversion no longer evident in Lateral leads Confirmed by MD FISH, JUNG ([id number]) on 09/16/2015 12:22:23 PM MUSE SYSTEM 09/16/2015 10:1 0 AM EDT 09/16/2015 12:22 PM EDT Larry Larkin MD ECG ORDERABLES MUSE SYSTEM * Differential, Automated (09/16/2015 10:08 AM EDT) Neutrophil % 65.2 % [facility] Neutrophil Absolute 4.72 1.50 - 6.30 x10(3)/[facility] Lymph % 20.3 % [facility] Lymphocytes Abs 1.5 1.0 - 3.6 x10(3)/[facility] Monocyte % 8.1 % [facility] Monocyte Abs 0.6 0.2 - 1.0 x10(3)/[facility] Eos % 5.4 % [facility] Eosinophils Abs 0.4 0.0 - 0.5 x10(3)/[facility] Basophil % 0.7 % [facility] Baso Absolute 0.0 0.0 - 0.2 x10(3)/[facility] Immature Gran % 0.30 % [facility] Comment: Immature granulocytes(IG's)percentage and absolute count will include metamyelocytes, myelocytes, and promyelocytes. Blood smears from CBCs yielding IG's will be scanned manually for concordance. If this scan disagrees with the automated IG or if promyelocytes are noted, a manual differential will be performed. Immature Gran Absolute 0.02 0.00 - 0.05 x10(3)/[facility] Blood specimen (specimen) 09/16/2015 10:08 AM EDT 09/16/2015 10:23 AM EDT Narrative Resulting Agency Comment Spec In Lab Larry Larkin MD HEMATOLOGY ORDERABLE S [facility] [place] [address] * (ABNORMAL) Hemogram (09/16/2015 10:08 AM EDT) White Blood Cell 7.2 4.0 - 10.0 x10(3)/ L [facility] Red Blood Cell 3.83(L) 4.63 - 6.08 x10(6)/mc L [facility] Hemoglobin 12.1(L) 13.7 - 17.5 gm/dL [facility] Hematocrit 35.8(L) 40.0 - 51.0 % [facility] Mean Cell Volume 93.5(H) 79.0 - 92.0 fL [facility] Mean Cell Hemoglobin 31.6 25.6 - 32.2 pg [facility] Mean Cell Hemoglobin Concentration 33.8 32.0 - 36.5 gm/dL [facility] Platelet 231 145 - 370 x10(3)/mc L [facility] RDW Standard Deviation 47.3(H) 35.0 - 46.0 fL [facility] RDW coefficient of variation 13.9 10.9 - 14.4 % [facility] Mean Platelet Volume 9.4 9.0 - 12.0 fL [facility] Blood specimen (specimen) 09/16/2015 10:08 AM EDT 09/16/2015 10:23 AM EDT Narrative Resulting Agency Comment Spec In Lab Larry Larkin MD HEMATOLOGY ORDERABLE S Performing Organization Address City/[facility]/[place] [address] * Antibody screen (09/16/2015 10:08 AM EDT) Ab Screen Interp Negative [facility] Expires at [id number] on: 09/19/2015 [facility] Blood specimen (specimen) 09/16/2015 10:08 AM EDT 09/16/2015 10:17 AM EDT Narrative Resulting Agency Comment Spec In Lab Larry Larkin MD BLOOD BANK LAB ORDER IGNACIO [facility] [place] [address] * ABO/Rh Typing (09/16/2015 10:08 AM EDT) ABORH Type AB Pos [facility] Blood specimen (specimen) 09/16/2015 10:08 AM EDT 09/16/2015 10:17 AM EDT Narrative Resulting Agency Comment Spec In Lab Larry Larkin MD BLOOD BANK LAB ORDER IGNACIO Performing Organization Address [facility]/ZIP Co de Phone Number [facility] [place] [address] * APTT (09/16/2015 10:08 AM EDT) Partial Thromboplastin Time 28 25 - 35 sec [facility] Comment: The recommended therapeutic range for full dose, unfractionated heparin at [facility] is 80 ? 114 seconds. The use of the anti-Xa (heparin) level rather than the PTT is recommended for monitoring anticoagulation intensity in critically ill patients receiving unfractionated heparin by continuous IV infusion. Blood specimen (specimen) 09/16/2015 10:08 AM EDT 09/16/2015 10:23 AM EDT Narrative Resulting Agency Comment Spec In Lab Larry Larkin MD HEMATOLOGY ORDERABLE S Performing Organization Address [facility] Co de Phone Number [facility] [place] [address] * Prothrombin Time (09/16/2015 10:08 AM EDT) Prothrombin Time 14.0 12.0 - 15.0 sec [facility] International Normalization Ratio 1.1 0.9 - 1.1 [facility] Blood specimen (specimen) 09/16/2015 10:08 AM EDT 09/16/2015 10:23 AM EDT Narrative Resulting Agency Comment Spec In Lab Larry Larkin MD HEMATOLOGY ORDERABLE S Performing Organization Address [facility] Co de Phone Number [facility] [place] [address] * (ABNORMAL) Phosphorus (09/16/2015 10:08 AM EDT) Phosphorus 5.0(H) 2.5 - 4.5 mg/dL [facility] Blood specimen (specimen) 09/16/2015 10:08 AM EDT 09/16/2015 10:23 AM EDT Narrative Resulting Agency Comment Spec In Lab Larry Larkin MD CHEMISTRY ORDERABLES Performing Organization Address [facility] de Phone Number [facility] [place] [address] * Magnesium (09/16/2015 10:08 AM EDT) Magnesium 0.83 0.69 - 1.07 mmol/L [facility] Blood specimen (specimen) 09/16/2015 10:08 AM EDT 09/16/2015 10:23 AM EDT Narrative Resulting Agency Comment Spec In Lab Larry Larkin MD CHEMISTRY ORDERABLES Performing Organization Address [facility] Co de Phone Number [facility] [place] [address] * (ABNORMAL) Comprehensive metabolic panel (non-fasting) (09/16/2015 10:08 AM EDT) Glucose 127 65 - 199 mg/dL [facility] Comment:Diabetes: >=200 mg/d L plus symptoms Blood Urea Nitrogen 44(H) 10 - 20 mg/dL [facility] Creatinine 7.50(H) 0.80 - 1.50 mg/dL [facility] Comment: Please note that the pediatric reference intervals supplied above were not validated at [facility]. Results from pediatric patients should be interpreted in conjunction to the patient's age, height and muscle mass. Sodium 139 135 - 145 mmol/L [facility] Potassium 4.9 3.5 - 5.0 mmol/L [facility] Comment: Please note: ??Patients with WBC >100,000 may have falsely elevated Potassium levels. ??For accurate Potassium quantification in these patients send serum separator tube (gold top) for subsequent determinations. ??Contact the Clinical Chemistry Laboratory if there are any questions. Chloride 96(L) 98 - 107 mmol/L [facility] Carbon Dioxide 28 22 - 31 mmol/L [facility] Anion Gap 15 5 - 15 mmol/L [facility] [facility] Calcium 9.4 8.5 - 10.5 mg/dL [facility] Protein, Total 7.4 6.1 - 8.0 gm/dL [facility] Albumin 3.8 3.2 - 5.2 gm/dL [facility] Aspartate Aminotransferase 15 0 - 39 unit/L [facility] Alanine Aminotransferase 18 0 - 55 unit/L [facility] Alkaline Phosphatase 65 40 - 120 unit/L [facility] Bilirubin, Total 0.9 0.2 - 1.3 mg/dL [facility] Bilirubin, Direct 0.1 0.0 - 0.3 mg/dL [facility] Est Glomerular Filtration Rate 7(L) >=60 [facility] Comment: [...] the following links into your internet browser. [email or web address] Blood specimen (specimen) 09/16/2015 10:08 AM EDT 09/16/2015 10:23 AM EDT Narrative Resulting Agency Comment Spec In Lab Larry Larkin MD CHEMISTRY ORDERABLES [facility] [place] [address] documented in this encounter Visit Diagnoses Diagnosis [...] (TYLENOL) tablet 650 mg 650 mg, Oral, GERIATRIC CARE MANAGER TO O.R., 1 dose, On 09/16/15 at 1015, Maximum dose of acetaminophen is [...] 20 mg, Intravenous, ONCE, 1 dose, On Alura 09/20/15 at 0800, Given in the morning [...] on Tu09/18/15 at 1700, Until Discontinued, Routine Given 09/19/2015 4:47 PM EDT 12.5 mg Given 09/18/2015 5:35 PM EDT 12.5 mg cefTAZidime (FORTAZ) 2g vial attach to sodium chloride 0.9% 50 mL Mini-Bag Plus 2 g, Intravenous, EVERY 12 HOURS, First dose (after last reorder) on 09/16/15 at 1830, Until Discontinued, Administer over 30 Minutes, Indication for (Active or Suspected): Prophylaxis, Restricted Antibiotic: Please indicate the most appropriate choice: ID Approval by Aubrey Horvath / transplant Given 09/17/2015 5:49 AM EDT 2 g [...] (BENADRYL) injection 50 mg 50 mg, Intravenous, GERIATRIC CARE MANAGER TO O.R., 1 dose, On Thu09/16/15 at [...] EDT 5,000 Units HYDROmorphone (DILAUDID) 1 mg/mL BATTER SCALER 50 mL Intravenous, BATTER SCALER ONLY, Starting on Thu09/16/15 at 1545, Until 09/17/15 at 1657, Recovery (Recovery-Hospital Unit) New Syringe/Cartridge 09/16/2015 4:03 PM EDT 50 mg HYDROmorphone (DILAUDID) syringe 0.2-0.4 mg 0.2-0.4 mg, Intravenous, EVERY 5 MIN PRN, Pain, Starting on Thu09/16/15 at 1426, Until Thu09/16/15 at 1716, For moderate pain (4-6) give: [...] Intravenous, DAILY, 1 dose, First dose on Tu09/18/15 at 0900, POD #2. If receiving thymoglobulin, [...] (CELLCEPT) capsule 1,000 mg 1,000 mg, Oral, GERIATRIC CARE MANAGER TO O.R., 1 dose, On Thu09/16/15 at [...] Oral, 4 TIMES DAILY, First dose on 09/16/15 at 1745, Until Discontinued, Swish and swallow., [...] 40 mg 40 mg, Oral, ONCE, On 09/16/15 at 1015, 1 dose, DO NOT CRUSH OR OPEN, Day of Surgery (Day of Procedure) Given 09/16/2015 11:09 AM EDT 40 mg pantoprazole (PROTONIX) tablet 40 mg 40 mg, Oral, DAILY, First dose on 09/16/15 at 1800, Until Discontinued, DO NOT CRUSH [...] for (Active or Suspected): Prophylaxis Given 09/16/2015 6:16 PM EDT 2,000 mg [...] OPEN, Routine 0844 (Given - Provider: Sonu Lara, JADEN)212 (Given - Provider: Keyana Moy, JADEN) 0825 (Given - Provider: Tamela Mckeon RN)205 (Given - Provider: Margarette Mota RN) 0830 (Given - Provider: Pauline Miles, JADEN) BUpivacaine-EPINEPHrine 0.25 %-1:200,000 injection 20 mL (COMPLETED) 20 mL (50 mg), Infiltration, ONCE, 1 dose, On Thu09/19/15 at 1345, For use in Interventional Radiology (IR) only for procedural sedation with direct provider supervision and verbal order., Angio/IR (Intra-Procedure), Routine 1430 (Given - Provider: Therese Carpio RN - Comment: Given by CREDIT COLLECTION ASSOCIATE.) carvedilol (COREG) tablet 12.5 mg (CANCELED) 12.5 mg, Oral, DAILY WITH DINNER, First dose on 09/18/15 at 1700, Until Discontinued, Routine 1735 (Given - Provider: Pauline Miles RN) 1647 (Given - Provider: Tamela Mckeon JADEN) cefTRIAXone (ROCEPHIN) 2 g vial attach to sodium chloride 0.9% 50 mL Mini-Bag Plus (CANCELED) 2 g, Intravenous, EVERY 24 HOURS, First dose on Thu09/17/15 at 1800, Until Discontinued, Administer over 30 Minutes, To cover bacteremia (group C strep), culture positive in kidney DONOR, Indication for (Active or Suspected): Other (See comment) 1740 (Given - Provider: Pauline Miles RN) 1719 (Given - Provider: Tamela Mckeon, JADEN) [...] Routine 0844 (Given - Provider: Sonu Lara RN)212 (Given - Provider: Keyana Moy RN) heparin (porcine) subcutaneous injection 5,000 Units (CANCELED) 5,000 Units, Subcutaneous, EVERY 8 HOURS SCHEDULED, First dose (after last modification) on Thu09/19/15 at 1400, Until Discontinued, Routine 1645 (Given - Provider: Tamela Mckeon RN)2100 (Given - Provider: Margarette Mota RN) 0629 (Given - Provider: Margarette Mota, JADEN)1400 [...] prior schedule. 1217 (Given - Provider: Sonu Lara RN)1554 (Given - Provider: Sonu Lara RN)2116 (Given - Provider: Keyana Moy RN) 0824 (Given - Provider: Tamela Mckeon, JADEN)1130 (Not Given - Provider: Sandra Dodd RN - Reason: Order parameters not met)1647 (Given - Provider: Tamela Mckeon, JADEN)2100 (Given - Provider: Margarette Mota, JADEN) 0730 [...] Therese Carpio RN - Comment: Given by CREDIT COLLECTION ASSOCIATE.) magnesium oxide (MAG-OX) tablet 400 mg (CANCELED) 400 mg, Oral, 2 TIMES DAILY, First dose on Thu09/18/15 at 0900, Until Discontinued, Routine 912 (Given - Provider: Sonu Lara, RN)2117 (Given - Provider: Keyana Moy RN) 825 (Given - Provider: Tamela Mckeon, JADEN)2056 (Given - Provider: Margarette Mota RN) 08 (Given - Provider: Pauline Miles RN) methylPREDNISolone [...] of thymoglobulin. 843 (Given - Provider: Sonu Lara, JADEN) mycophenolate (CELLCEPT) capsule 750 mg (CANCELED)(Linked Group 3) 750 mg, Oral, 2 TIMES DAILY, First dose on Thu09/17/15 at 0900, Until Discontinued, DO NOT CRUSH OR OPEN, Routine 0844 (Given - Provider: Sonu Lara, RN)2118 (Given - Provider: Keyana Moy, JADEN) 0826 (Given - Provider: Tamela Mckeon RN)2055 (Given - Provider: Margarette Mota, JADEN) 0830 (Given - Provider: Pauline Miles, JADEN) nystatin (MYCOSTATIN) 100,000 unit/mL oral suspension 500,000 Units (CANCELED) 500,000 Units (5 mL), Oral, 4 TIMES DAILY, First dose on 09/16/15 at 1745, Until Discontinued, Swish and swallow., Routine 0844 (Given - Provider: Sonu Lara RN)1518 (Given - Provider: Sonu Lara RN)1742 (Given - Provider: Pauline Miles, JADEN)2122 (Given - Provider: Keyana Moy RN) 0827 (Given - Provider: Tamela Mckeon RN)1300 (Not Given - Provider: Tamela Mckeon RN - Reason: Transfer to a Procedural area)1647 (Given - Provider: Tamela Mckeon RN)2056 (Given - Provider: Margarette Mota, JADEN) 0831 (Given - Provider: Pauline Miles, JADEN)1205 (Given - Provider: Pauline Miles RN) pantoprazole (PROTONIX) tablet 40 mg (CANCELED)(Linked Group 4) 40 mg, Oral, DAILY, First dose on 09/16/15 at 1800, Until Discontinued, DO NOT CRUSH OR OPEN If unable to take PO, may give IV 0844 (Given - Provider: Sonu Lara RN) 0825 (Given - Provider: Tamela Mckeon, JADEN) 0831 (Given - Provider: Pauline Miles, JADEN) polyethylene glycol (MIRALAX) packet 17 g 17 g, Oral, DAILY, First dose on 09/17/15 at 1315, Until Discontinued, Routine 0844 (Given [...] RN)0744 (Rate/Dose Change - Provider: Sonu Lara, JADEN)0745 (Not Given - Provider: Sonu Lara RN - Reason: Order parameters not met) tacrolimus (PROGRAF) capsule 1 mg (CANCELED) 1 mg, Oral, 2 TIMES DAILY, First dose on Thu09/18/15 at 2100, Until Discontinued, Routine 2118 (Given - Provider: Keyana Moy RN) 0826 (Given - Provider: Tamela Mckeon RN)205 (Given - Provider: Margarette Mota RN) 0831 (Given - Provider: Pauline Miles, JADEN) tamsulosin (FLOMAX) ER capsule 0.4 mg (CANCELED) 0.4 mg, Oral, DAILY, First dose on Thu09/19/15 at 1100, Until Discontinued, DO NOT CRUSH OR OPEN, Routine 1154 (Given - Provider: Sandra Dodd RN) 0831 (Given - Provider: Pauline Miles RN) Continuous Medication Order 09/18/2015 09/19/2015 09/20/2015 sodium chloride 0.9% infusion (CANCELED) 50 mL/hr, Intravenous, CONTINUOUS, Starting on Thu09/16/15 at 1545, Until Thu09/18/15 at 0842, Recovery (Recovery-Hospital Unit) 0533 (New Bag - Provider: Isela Clay RN)0800 (Rate/Dose Verify - Provider: Sonu Lara, JADEN) sodium chloride 0.9% infusion (CANCELED) 50 mL/hr, Intravenous, CONTINUOUS, Starting on Thu09/18/15 at 1030, Until Thu09/19/15 at 0714 1044 (New Bag - Provider: Sonu Lara, JADEN) 0037 (New Bag - Provider: Keyana Moy, JADEN) sodium chloride 0.9% infusion (CANCELED) 50 mL/hr, Intravenous, CONTINUOUS, Starting on Thu09/19/15 at 0915, Until Thu09/19/15 at 1622 1000 (Continued Bag - Provider: Sandra Dodd, JADEN)1638 (Stopped - Provider: Tamela Mckeon RN) PRN Medication Order 09/18/2015 09/19/2015 09/20/2015 acetaminophen [...] Wheezing, Routine 0705 (Given - Provider: Keyana Moy, JADEN) meTOPROLOL (LOPRESSOR) injection 5 mg (CANCELED) 5 [...] JADEN)1446 (Given - Provider: Therese Carpio, JADEN) oxyCODONE [...] RN) 0845 (See Alternative - Provider: Tamela Mckeon, JADEN)1319 (See Alternative - Provider: Tamela Mckeon, JADEN)2002 (See Alternative - Provider: Margarette Mota, JADEN)2346 (See Alternative - Provider: Margarette Mota, JADEN) 0358 (See Alternative - Provider: Margarette Mota, JADEN)0839 (See Alternative - Provider: Pauline Miles, JADEN)1241 [...] relieved., Routine 1012 (Given - Provider: Sonu Lara, RN) 0845 (Given - Provider: Tamela Mckeon, RN)1319 (Given - Provider: Tamela Mckeon, RN - Comment: on way to IR)2001 (Given - Provider: Margarette Mota, RN)2346 (Given - Provider: Margarette Mota, JADEN) 0358 (Given - Provider: Margarette Mota, JADEN)0839 (Given - Provider: Pauline Miles, RN)1241 (See [...] 40 mg, Oral, DAILY, First dose on 09/16/15 at 1800, Until Discontinued, DO NOT CRUSH OR OPEN If unable to take PO, may give IV Or pantoprazole (PROTONIX) injection 40 mg (CANCELED) 40 mg, Intravenous, DAILY, First dose on 09/16/15 at 1800, Until Discontinued, Reconstitute with 10 [...] Routine documented in this encounter Care Teams Diesel Tractor Operator Relationship Specialty Start Date End Date Albania Nunez DO [address] [place] [address] PCP - General 09/03/12 03/17/22 Ruchi Valles RN Nurse Clinic Transplant Surgery 07/30/15 documented as of this encounter
--- OUTSIDE RECORDS SUMMARY | 2024-04-04 14:16 | XMS_ITS | Encounter Summary ---
Author Organization [facility] [place] [address] Care Team Providers Care Roof Fixer Name Role Phone AdeelUrbano toscano Primary Care Provider Encounter Details Date Type Department Care Team (Late st Contact Info) Description 09/21/2015 External Results [place] [address] Social History Tobacco Use Types [...] PM EDT Office Visit Cardiology at [address] [phone] Jay Urban MD [facility] [place] [place] [address] 04/15/2024 10:00 AM EDT Hospital Encounter Non-[place] [address] Arrived documented as of this encounter Procedures Procedure Name Priority Date/Time Associated Diagnosis Comments TISSUE TYPING, ABO AND CROSSMATCH Routine 09/15/2015 documented in this encounter Results * Scan Doc: Tissue Typing, ABO,and Crossmatch (09/15/2015) Historical Provider MD PAIZ MGR SCAN EX T ORDR/RSLT documented in this encounter Visit Diagnoses Not on filedocumented in this encounter Care Teams Roof Fixer Relationship Specialty Start Date End Date Urbano Denis DO [address] [place] [address] [address] [place] [address] PCP - General 09/03/12 03/17/22 Hai STANLEY,Ruchi Nurse Clinic Transplant Surgery 07/30/15 documented as of this encounter
--- OUTSIDE RECORDS SUMMARY | 2024-04-04 14:16 | XMS_ITS | Encounter Summary ---
[place] [address] Care Team Providers Care Software Writer Name Role Phone Urbano Denis DO Primary Care Provider [phone] Encounter Details Date Type Department Care Team (Latest Contact Info) Description 09/25/2015 10:47 AM EDT - 09/25/2015 11:59 PM EDT Hospital Encounter [place] [address] Discharge Disposition: Home Social History Tobacco Use [...] PM EDT Office Visit Cardiology at [address] [phone] Jay Urban MD [facility] [place] [place] [address] 04/15/2024 10:00 AM EDT Hospital Encounter Non-[place] [address] Arrived documented as of this encounter Procedures Procedure Name Priority Date/Time Associated Diagnosis Comments SURGICAL PATHOLOGY REPORT Routine 09/25/2015 10:47 AM EDT documented in this encounter Results * Surgical Pathology Report (09/25/2015 10:47 AM EDT) Final Diagnosis [id number] ? Location: [facility]W The signing pathologist has (i) examined the relevant preparation(s) for the specimen(s) and (ii) rendered or confirmed the diagnosis(es). . ?Surgical Pathology DIAGNOSIS CONSULTATION CASE Outside slides labeled RtK (Donor ID# [id number]), collection date 09/15/2015. Kidney, wedge biopsy, pre-transplant: [...] are identified. ADDITIONAL STUDIES Whole slide scan: First Mate slide CLINICAL INFORMATION Specimen Submitted: CONSULTATION CASE A - 3 slides labeled RtK (Donor ID# [id number]), collection date 09/15/2015. [id number] Report to: [facility] [address] [id number] T: [phone] F: [phone] SPECIMEN PROCESSING [facility] ([facility]) pathology slide(s) are reviewed. ??Refer to Diagnosis and Specimen Submitted for specific case information. For the full text of the [facility] report(s) please refer to Non-DH Documentation Pathology in the electronic health record (eDH). 09/26/2015 10:03 AM EDT [facility] Consult Case 09/25/2015 10:4 7 AM EDT 09/25/2015 10:47 AM EDT Franko Larkin MD PATHOLOGY/CYTOLOGY O RDERABLES [facility] [place] [id number] documented in this encounter Visit Diagnoses Not on filedocumented in this encounter Care Teams Software Writer Relationship Specialty Start Date End Date Urbano Denis DO [address] [place] [address] PCP - General 09/03/12 03/17/22 Ruchi Valles RN Nurse Clinic Transplant Surgery 07/30/15 documented as of this encounter
--- OUTSIDE RECORDS SUMMARY | 2024-04-04 14:16 | XMS_ITS | Encounter Summary ---
Author Organization [facility] [place] [address] Care Team Providers Care Utility Division Project Manager Name Role Phone AdeelUrbano toscano Primary Care Provider Encounter Details Date Type Department Care Team (Late st Contact Info) Description 09/19/2015 Orders Only [place] [address] Samia Ecsalante, RN Social History Tobacco Use Types Packs/Day [...] PM EDT Office Visit Cardiology at [address] [phone] Jay Urban MD [facility] [place] [address] 04/15/2024 10:00 AM EDT Hospital Encounter Non-[place] [address] Arrived documented as of this encounter Visit Diagnoses Not on filedocumented in this encounter Care Teams Utility Division Project Manager Relationship Specialty Start Date End Date Urbano Denis DO [address] [place] [address] PCP - General 09/03/12 03/17/22 Ruchi Valles RN Nurse Clinic Transplant Surgery 07/30/15 documented as of this encounter
--- OUTSIDE RECORDS SUMMARY | 2024-04-04 14:16 | XMS_ITS | Encounter Summary ---
Author Organization [facility] [place] [address] Care Team Providers Care Podiatric Aide Name Role Phone Adeel Urbano KIRBY Primary Care Provider Encounter Details Date Type Department Care Team (Late st Contact Info) Description 09/21/2015 Abstract [place] [address] Clark Bro Social History Tobacco [...] PM EDT Office Visit Cardiology at [address] [phone] Jay Urban MD [facility] [place] [address] 04/15/2024 10:00 AM EDT Hospital Encounter Non-Invasive [place] [address] Arrived documented as of this encounter Visit Diagnoses Not on filedocumented in this encounter Care Teams Podiatric Aide Relationship Specialty Start Date End Date Urbano Denis DO [address] [place] [address] PCP - General 09/03/12 03/17/22 Ruchi Valles RN Nurse Clinic Transplant Surgery 07/30/15 documented as of this encounter
--- OUTSIDE RECORDS SUMMARY | 2024-04-04 14:17 | XMS_ITS | Encounter Summary ---
Author Organization [facility] [place] [address] Care Team Providers Care Commercial Real Estate Associate Name Role Phone Urbano Denis DO Primary Care Provider Reason for Referral * Diagnostic Test (Routine) - Closed Specialty Diagnoses / Procedures Referred By Humberto flor Referred To Contact Radiology Diagnoses ESRD (end stage renal disease) Procedures IR a/v fistula evaluations Jomar Franco MD [facility] [address] [place] [address] Referral ID Status Reason Start Date Expiration Date V isits Requested Visits Authorized [id number] Closed Specialty Service Requested 07/30/2015 07/29/2016 1 1 Encounter Details Date Type Department Care Team (Late st Contact Info) Description 07/30/2015 Orders Only [place] [address] Jomar Franco MD [facility] [address] ESRD (end stage renal disease) [...] PM EDT Office Visit Cardiology at [address] [phone] Jay Urban MD [facility] [place] [address] 04/15/2024 10:00 AM EDT Hospital Encounter Non-[place] [phone] Arrived documented as of this encounter Results [...] by US. Fellow: Gibson Avelar MD (pager #[phone]) Attending: Jade Nelson MD ?? (I was present and scrubbed for the entire procedure) Jomar Franco MD IMG IR ORDERABLES documented in this encounter Visit Diagnoses Diagnosis ESRD (end stage renal disease) End stage renal disease ESRD (end stage renal disease) End stage renal disease documented in this encounter Care Teams Commercial Real Estate Associate Relationship Specialty Start Date End Date Urbano Denis DO [address] [place] [address] [address] [facility] [address] [place] [address] PCP - General 09/03/12 03/17/22 Ruchi Valles RN Nurse Clinic Transplant Surgery 07/30/15 documented as of this encounter
--- OUTSIDE RECORDS SUMMARY | 2024-04-04 14:17 | XMS_ITS | Encounter Summary ---
Author Organization [facility] [place] [address] Care Team Providers Care Hospice Clinical Supervisor Name Role Phone AdeelUrbano boland Primary Care Provider Encounter Details Date Type Department Care Team (Late st Contact Info) Description 07/17/2015 Abstract [place] [address] Aurora Kessler Social History Tobacco Use Types [...] PM EDT Office Visit Cardiology at [address] [phone] Jay Urban MD [facility] [place] [address] 04/15/2024 10:00 AM EDT Hospital Encounter Non-[place] [address] Arrived documented as of this encounter Visit Diagnoses Not on filedocumented in this encounter Care Teams Hospice Clinical Supervisor Relationship Specialty Start Date End Date Urbano Denis DO [address] [place] [address] PCP - General 09/03/12 03/17/22 documented as of this encounter
--- OUTSIDE RECORDS SUMMARY | 2024-04-04 14:17 | XMS_ITS | Encounter Summary ---
Author Organization [facility] [place] [address] Care Team Providers Care Engraver Apprentice Decorative Name Role Phone Adeel Urbano KIRBY Primary Care Provider Encounter Details Date Type Department Care Team (Late st Contact Info) Description 07/16/2015 Abstract [place] [address] Aurora Kessler Social History Tobacco [...] PM EDT Office Visit Cardiology at [address] [phone] Jay Urban MD [facility] [place] [address] 04/15/2024 10:00 AM EDT Hospital Encounter Non-Invasive [place] [address] Arrived documented as of this encounter Visit Diagnoses Not on filedocumented in this encounter Care Teams Engraver Apprentice Decorative Relationship Specialty Start Date End Date Urbano Densi DO [address] [place] [address] PCP - General 09/03/12 03/17/22 documented as of this encounter
--- OUTSIDE RECORDS SUMMARY | 2024-04-04 14:17 | XMS_ITS | Encounter Summary ---
Author Organization [facility] [place] [address] Care Team Providers Care Carpenter Mine Name Role Phone Adeel Urbano KIRBY Primary Care Provider Encounter Details Date Type Department Care Team (Late st Contact Info) Description 09/04/2015 External Results [place] [address] Social History Tobacco Use Types [...] PM EDT Office Visit Cardiology at [address] [phone] Jay Urban MD [facility] [place] [place] [address] 04/15/2024 10:00 AM EDT Hospital Encounter Non-[place] [address] Arrived documented as of this encounter Procedures Procedure Name Priority Date/Time Associated Diagnosis Comments TXP FOLLOW UP RENAL RECIPIEN T WORK-UP Routine 08/08/2015 documented in this encounter Results * Transplant: Renal Recipient Work-up (08/08/2015) Historical Provider CHEMISTRY ORDERAB LES documented in this encounter Visit Diagnoses Not on filedocumented in this encounter Care Teams Carpenter Mine Relationship Specialty Start Date End Date Urbano Denis DO [address] [place] [address] PCP - General 09/03/12 03/17/22 Ruchi Valles RN Nurse Clinic Transplant Surgery 07/30/15 documented as of this encounter
--- OUTSIDE RECORDS SUMMARY | 2024-04-04 14:17 | XMS_ITS | Encounter Summary ---
Author Organization [facility] [place] [address] Care Team Providers Care Rn Primary Care Name Role Phone Urbano Denis DO Primary Care Provider Encounter Details Date Type Department Care Team (Latest Contact Info) Description 07/17/2015 1:15 PM EST Laboratory Appointment Lab [address] [place] [address] Pre-transplant evaluation for kidney transplant; End stage [...] PM EDT Office Visit Cardiology at [address] [address] Jay Urban MD [facility] [place] [address] 04/15/2024 10:00 AM EDT Hospital Encounter Non[place] [address] Arrived documented as of this [...] TXP BLD Draw Req Sample in lab. [facility] Blood specimen (specimen) Venous Draw / Unknown 07/17/2015 1:44 PM EST 07/17/2015 2:03 PM EST Narrative Resulting Agency Comment Spec In Lab Tal Eagle MD LAB SEND OUT ROCHELLE JENNINGS Performing Organization Address [facility] Co de Phone Number [facility] * Varicella zoster Antibody, IgG (07/17/2015 1:44 PM EST) Varicella Zoster Antibody IgG Pos [facility] Blood specimen (specimen) 07/17/2015 1:44 PM EST 07/18/2015 7:56 AM EST Narrative Resulting Agency Comment Spec In Lab Tal Eagle MD IMMUNOLOGY ORDERA BLES Performing Organization Address City/[facility] Co de Phone Number [facility] MettlENNIUM * Toxoplasma Antibody, IgM (07/17/2015 1:44 PM EST) Toxoplasma Antibody IgM Neg Neg CERNER MILLENNIUM Blood specimen (specimen) 07/17/2015 1:44 PM EST 07/18/2015 7:56 AM EST Narrative Resulting Agency Comment Spec In Lab Tal Eagle MD IMMUNOLOGY ORDERA BLES Performing Organization Address City/[facility]/ZIP Co de Phone Number [facility] * Toxoplasma Antibody, IgG (07/17/2015 1:44 PM EST) Toxoplasma Antibody IgG Neg Neg CERNER MILLENNIUM Blood specimen (specimen) 07/17/2015 1:44 PM EST 07/18/2015 7:56 AM EST Narrative Resulting Agency Comment Spec In Lab Tal Eagle MD IMMUNOLOGY ORDERA BLES Performing Organization Address [facility] Co de Phone Number [facility] DANELLEENNIUM * (ABNORMAL) HSV 1 and 2 IgG Antibodies (07/17/2015 1:44 PM EST) HSV Type 1 Ab, IgG Pos(A) Neg CERNER MILLENNIUM HSV Type 2 Ab, IgG Equivocal( A) Neg CERNER MILLENNIUM Blood specimen (specimen) 07/17/2015 1:44 PM EST 07/18/2015 7:56 AM EST Narrative Resulting Agency Comment Spec In Lab Tal Eagle MD IMMUNOLOGY ORDERA BLES Performing Organization Address [facility] Co de Phone Number BENEDICT PEACOCKIUM * (ABNORMAL) Titus-Tam Virus Antibodies (07/17/2015 [...] In Lab Tal Eagle MD IMMUNOLOGY ORDERA [facility] Performing Organization Address City/State/[facility] Co de Phone Number [facility] documented in this encounter Visit Diagnoses Diagnosis Pre-transplant evaluation for kidney transplant Other specified pre-operative examination End stage renal disease documented in this encounter Care Teams Rn Primary Care Relationship Specialty Start Date End Date Urbano Denis DO [address] [place] [address] PCP - General 09/03/12 03/17/22 documented as of this encounter
--- OUTSIDE RECORDS SUMMARY | 2024-04-04 14:17 | XMS_ITS | Encounter Summary ---
[facility] [place] [address] Care Team Providers Care Sleep Lab Technician Name Role Phone Urbano Denis DO Primary Care Provider Encounter Details Date Type Department Care Team (Latest Contact Info) Description 07/17/2015 1:57 PM EST - 07/17/2015 11:59 PM [facility] Hospital Encounter [place] [address] Kitty Townsend RVT Pre-transplant evaluation for kidney [...] PM EDT Office Visit Cardiology at [address] [address] Jay Urban MD [facility] [place] [address] 04/15/2024 10:00 AM EDT Hospital Encounter Non-[place]vasive [place] [address] Arrived documented as of this encounter Procedures [...] Text Report Department: Vascular Surgery Lab Patient: [id number] (ETHEL AKINS) CPT: 20376 ICD10: N18.6;Z01.818 Referring Physician: TAL PURI ?? [...] Text Report Department: Vascular Surgery Lab Patient: [id number] (ETHEL AKINS) CPT: 82915 ICD10: Z01.818;N18.6 Referring Physician: TAL PURI ?? [...] disease documented in this encounter Care Teams Sleep Lab Technician Relationship Specialty Start Date End Date Urbano Denis DO [address] [place] [address] PCP - General 09/03/12 03/17/22 documented as of this encounter
--- OUTSIDE RECORDS SUMMARY | 2024-04-04 14:17 | XMS_ITS | Encounter Summary ---
[place] [address] Care Team Providers Care Park Maintenance Technician Name Role Phone [place] Denis DO Primary Care Provider Reason for Referral * Diagnostic Test (Routine) - Closed Specialty Diagnoses / Procedures Referred By Contac t Referred To Contact Radiology Diagnoses ESRD (end stage renal disease) Procedures IR a/v fistula evaluations Jomar Franco MD [facility] [place] [address] [place] [address] Referral ID Status Reason Start Date Expiration Date V isits Requested Visits Authorized [id number] Closed Specialty Service Requested 07/30/2015 07/29/2016 1 1 Reason for Visit * Diagnostic Test (Routine) - Closed Specialty Diagnoses / Procedures Referred By Contac t Referred To Contact Radiology Diagnoses ESRD (end stage renal disease) Procedures IR a/v fistula evaluations Jomar Franco MD [facility] [place] [address] [place] [address] Referral ID Status Reason Start Date Expiration Date V isits Requested Visits Authorized [id number] Closed Specialty Service Requested 07/30/2015 07/29/2016 1 1 Encounter Details Date Type Department Care Team (Latest Contact Info) Description 07/31/2015 7:13 AM EST - 07/31/2015 11:59 PM EST Hospital Encounter Radiology at [facility] [place] [address] Jomar Franco MD [facility] [place] [place] [address] ESRD (end stage renal disease) Discharge Disposition: [...] Tomlin RN - 07/31/2015 9:04 AM EST [facility] Vascular and Interventional Radiology Discharge Instructions after [...] is during regular office hours, please call [phone]. If it is after regular office hours, or on weekends or holidays, please call [phone] and ask to speak to the War[employer] Vat Tender trade union official for Interventional Radiology. You have received medication [...] visible) Gibson Avelar MD VIR Fellow Pager #[phone] * Huyen Mariano RN - 07/30/2015 1:52 PM EST ANGIO/VIR NURSING DATABASE Name: ETHEL AKINS Date of : 1950 AGE 64 y.o. Address: [address] [place] [phone] (home) [phone] (work) Mobile: Telephone Information: Referring Provider: Jomar [...] EXTREMITY performed by Que Amaro MD at [facility] MAIN OR Date/Procedure? Med's given/comments 01/08/2015: [...] informed this patient that they require a semi driver to be present and in the building to drive them home after this procedure. In the absence of a semi driver, IR will not be able to perform this procedure and will need to reschedule. Pt verbalized understanding of these i nstructions during the pre-procedure education via phone. (initials) documented in this encounter Plan of Treatment Upcoming Encounters Date Type Department Care Team (Late st Contact Info) Description 04/08/2024 1:40 PM EDT Office Visit Cardiology at [address] [address] Jay Urban MD [facility] [place] [address] 04/15/2024 10:00 AM EDT Hospital Encounter Non[place] [address] Arrived documented as of this encounter Procedures [...] by US. Fellow: Gibson Avelar MD (pager #[phone]) Attending: Jade Nelson MD ?? (I was present and scrubbed for the entire procedure) Jomar Franco MD IMG IR ORDERABLES * POCT Glucose (07/31/2015 7:28 AM EST) [facility] Glucose, POC 112 65 - 199 mg/dL [facility] Comment: Supplemental ranges: <140 mg/dL before meals <180 mg/dL all other times of the day Blood specimen (specimen) 07/31/2015 7:28 AM EST 07/31/2015 7:28 AM EST Jomar Franco MD POINT OF CARE TEST ORDERABLES Performing Organization Address City/State/[facility] Co de Phone Number [facility] documented in this encounter Visit Diagnoses Diagnosis [...] mg documented in this encounter Care Teams Park Maintenance Technician Relationship Specialty Start Date End Date Albania Denis DO [address] [place] [address] PCP - General 09/03/12 03/17/22 Ruchi Valles RN Nurse Clinic Transplant Surgery 07/30/15 documented as of this encounter
--- OUTSIDE RECORDS SUMMARY | 2024-04-04 14:17 | XMS_ITS | Encounter Summary ---
Author Organization [facility] [place] [address] Care Team Providers Care Power System Operator Name Role Phone AdeelUrbano toscano Primary Care Provider Encounter Details Date Type Department Care Team (Late st Contact Info) Description 07/31/2015 Orders Only [place] [phone] Ellen Foote RN Pre-transplant evaluation for kidney [...] PM EDT Office Visit Cardiology at [address] [phone] [facility] [place] [address] 04/15/2024 10:00 AM EDT Hospital Encounter Non-[place] [address] Arrived documented as of this encounter Visit Diagnoses Diagnosis Pre-transplant evaluation for kidney transplant Other specified pre-operative examination documented in this encounter Care Teams Power System Operator Relationship Specialty Start Date End Date Urbano Denis DO [address] [place] [address] [address] [facility] [address] [place] [address] PCP - General 09/03/12 03/17/22 Ruchi Valles RN Nurse Clinic Transplant Surgery 07/30/15 documented as of this encounter
--- OUTSIDE RECORDS SUMMARY | 2024-04-04 14:17 | XMS_ITS | Encounter Summary ---
[place] [address] Care Team Providers Care Learn To Swim Instructor Name Role Phone Urbano Denis DO Primary Care Provider + [phone] Reason for Referral * Diagnostic Test (Routine) - Closed Specialty Diagnoses / Procedures Referred By Contac t Referred To Contact Radiology Diagnoses ESRD on dialysis Procedures IR line/tube removal recovery room- Jaz Gregorio MD [facility] [address] [place] [address] Referral ID Status Reason Start Date Expiration Date V isits Requested Visits Authorized [id number] Closed Specialty Service Requested 07/18/2015 07/17/2016 1 1 Reason for Visit * Diagnostic Test (Routine) - Closed Specialty Diagnoses / Procedures Referred By Contac t Referred To Contact Radiology Diagnoses ESRD on dialysis Procedures IR line/tube removal recovery room- Jaz Gregorio MD [facility] [place] [address] [place] [address] Referral ID Status Reason Start Date Expiration Date V isits Requested Visits Authorized [id number] Closed Specialty Service Requested 07/18/2015 07/17/2016 1 1 Encounter Details Date Type Department Care Team (Latest Contact Info) Description 07/24/2015 12:25 PM EST - 07/24/2015 11:59 PM EST Hospital Encounter Radiology at [facility] [place] [address] Jomar Franco MD [facility] [place] [address] ESRD on dialysis Discharge Disposition: Home Social [...] Estrada RN - 07/24/2015 2:05 PM EST [facility] Vascular and Interventional Radiology Discharge Instructions For [...] is during regular office hours, please call [phone]. If it is after regular office hours, or on weekends or holidays, please call [phone] and ask to speak to the Vocational Nursing Instructor business solution analyst for Interventional Radiology. Revised 07/20/15 documented in [...] Estrada RN - 07/24/2015 2:02 PM EST [facility] Vascular and Interventional Radiology Discharge Instructions For [...] is during regular office hours, please call [phone]. If it is after regular office hours, or on weekends or holidays, please call [phone] and ask to speak to the Vocational Nursing Instructor business solution analyst for Interventional Radiology. You may resume your regular diet as tolerated. documented in this encounter Plan of Treatment Upcoming Encounters Date Type Department Care Team (Late st Contact Info) Description 04/08/2024 1:40 PM EDT Office Visit Cardiology at [address] [address] Jay Urban MD [facility] [place] [address] 04/15/2024 10:00 AM EDT Hospital Encounter Non-Invasive Cardiology Lab [facility] [place] [address] Arrived documented as of this encounter Procedures [...] tunneled HD catheter which was placed in [place]. Technique: ??The patient was positioned supine on [...] from angio recovery. Fellow: Gibson Avelar MD(pager #[phone]) Attending: Ghassan Lange, Dr. Ferrell, was present for the procedure. Jomar Franco MD IMG IR ORDERABLES documented in this encounter Visit Diagnoses Diagnosis ESRD on dialysis End stage renal disease documented in this encounter Care Teams Learn To Swim Instructor Relationship Specialty Start Date End Date Urbano Denis DO [address] [place] [address] PCP - General 09/03/12 03/17/22 documented as of this encounter
--- OUTSIDE RECORDS SUMMARY | 2024-04-04 14:17 | XMS_ITS | Encounter Summary ---
Author Organization [facility] [place] [address] Care Team Providers Care Food And Beverage Analyst Name Role Phone AdeelUrbano toscano Primary Care Provider Encounter Details Date Type Department Care Team (Late st Contact Info) Description 09/07/2015 Abstract [place] [address] Ellen Foote RN Social History Tobacco Use [...] PM EDT Office Visit Cardiology at [address] [address] Jay Urban MD [facility] [place] [address] 04/15/2024 10:00 AM EDT Hospital Encounter Non[place] [address] Arrived documented as of this encounter Visit Diagnoses Not on filedocumented in this encounter Care Teams Food And Beverage Analyst Relationship Specialty Start Date End Date Urbano Denis DO [address] [place] [address] PCP - General 09/03/12 03/17/22 Ruchi Valles RN Nurse Clinic Transplant Surgery 07/30/15 documented as of this encounter
--- OUTSIDE RECORDS SUMMARY | 2024-04-04 14:17 | XMS_ITS | Encounter Summary ---
Author Organization [facility] [place] [address] Care Team Providers Care Snap Shearer Name Role Phone Adeel Urbano KIRBY Primary Care Provider [phone] Encounter Details Date Type Department Care Team (Late st Contact Info) Description 07/26/2015 External Results Solid [place] [address] Social History Tobacco Use Types [...] PM EDT Office Visit Cardiology at [address] [phone] Jay Urban MD [facility] [place] [address] 04/15/2024 10:00 AM EDT Hospital Encounter Non[place] [address] Arrived documented as of this encounter Procedures Procedure Name Priority Date/Time Associated Diagnosis Comments [facility] KIDNEY INITIAL - RECIPIENT Routine 07/20/2015 documented in this encounter Results * Transplant: Kidney Initial (Recipient) - EXTERNAL collections (07/20/2015) Historical Provider EXTERNAL LAB ROCHELLE JENNINGS documented in this encounter Visit Diagnoses Not on filedocumented in this encounter Care Teams Snap Shearer Relationship Specialty Start Date End Date Urbano Denis DO [address] [place] [address] PCP - General 09/03/12 03/17/22 documented as of this encounter
--- OUTSIDE RECORDS SUMMARY | 2024-04-04 14:17 | XMS_ITS | Encounter Summary ---
Author Organization [facility] [place] [address] Care Team Providers Care Wire Fence Erector Name Role Phone AdeelUrbano boland Primary Care Provider Encounter Details Date Type Department Care Team (Late st Contact Info) Description 09/07/2015 Notes Only [place] [address] Ellen Foote RN Social History Tobacco Use [...] been formally activated on 09/07/2015 on the [facility] Kidney transplant list. The patient???s medical, psychosocial and financial review have been completed and reviewed by the [facility]???s multidisciplinary transplant committee and he/she [...] PM EDT Office Visit Cardiology at [address] [address] Jay Urban MD [facility] [place] [address] 04/15/2024 10:00 AM EDT Hospital Encounter Non-Invasive [place] [address] Arrived documented as of this encounter Visit Diagnoses Not on filedocumented in this encounter Care Teams Wire Fence Erector Relationship Specialty Start Date End Date Urbano Denis DO [address] [facility] [address] [place] [address] PCP - General 09/03/12 03/17/22 Ruchi Valles RN Nurse Clinic Transplant Surgery 07/30/15 documented as of this encounter
--- OUTSIDE RECORDS SUMMARY | 2024-04-04 14:17 | XMS_ITS | Encounter Summary ---
Author Organization [facility] [place] [address] Care Team Providers Care Secondary Spanish Teacher Name Role Phone AdeelUrbano toscano Primary Care Provider Encounter Details Date Type Department Care Team (Late st Contact Info) Description 07/17/2015 External Results [place] [address] Aurora Kessler Social History Tobacco [...] PM EDT Office Visit Cardiology at [address] [address] Jay Urban MD [facility] [place] [address] 04/15/2024 10:00 AM EDT Hospital Encounter Non-[place] [address] Arrived documented as of this [...] 159 mg/dL Protein S Ag Total 6.8 Neutrophil % Manual 73.5 Lymphocyte Manual 73.5 Monocyte Manual 7.3 Eosinophil Manual 3.5 Basophil Manual 0.9 Neutrophil Absolute (ANC) - Automated 5.90 Est Glomerular Filtration Rate 14 12/28/2014 Historical Provider CHEMISTRY ORDERAB LES * Transplant: Renal Recipient Work-up (12/21/2014) ABORH Type AB POS Prostate Specific Antigen (Ultrasensitiv e) 0.75 CMV IgG 0.3 Hepatitis B Surface Antigen Negative Hepatitis B Surface Antibody NEGATIVE Hepatitis B Core Antibody NEGATIVE HIV 1/2 Ab NEGATIVE RPR (ARU) NEGATIVE HCV Viral Load 192404 IU/ML HCV Viral Load 5.7 12/21/2014 Historical Provider CHEMISTRY ORDERAB LES documented in this encounter Visit Diagnoses Not on filedocumented in this encounter Care Teams Secondary Spanish Teacher Relationship Specialty Start Date End Date Urbano Denis DO [address] [place] [address] PCP - General 09/03/12 03/17/22 documented as of this encounter
--- OUTSIDE RECORDS SUMMARY | 2024-04-04 14:17 | XMS_ITS | Encounter Summary ---
Author Organization [facility] [place] [address] Care Team Providers Care Supervisor Gear Repair Name Role Phone Albania Nunez DO Primary Care Provider [phone] Reason for Visit * Auth/Cert Specialty Diagnoses / Procedures Referred By Humberto flor Referred To Contact Diagnoses RENAL FAILURE Kidney transplant. UNOS #[id number] Procedures PRO TRANSPLANTATION OF KIDNEY PRO TRANSPLANT, PREP CADAVER RENAL GRAFT @KIDNEY TRANSPLANT, WITHOUT RECIPIENT NEPHRECTOMY @PREPARATION CADAVERIC RENAL ALLOGRAFT Referral ID Status Reason Start Date Expiration Date Visits Re quested Visits Authorized [id number] 1 1 Encounter Details Date Type Department Care Team (Late st Contact Info) Description 09/16/2015 9:00 AM EDT - 09/16/2015 1:01 PM EDT [place] [address] Larry Larkin MD [facility] [place] [address] @KIDNEY TRANSPLANT, WITHOUT RECIPIENT NEPHRECTOMY (WRVU 39.88) [...] Tubiello's stay because [facility] and had known Group [...] Center 09/25/2015 9:00 AM TRANSPLANT, COORDINATOR [facility] [address] [place] [facility] 09/25/2015 10:30 AM Larry Larkin MD [facility] [address] [facility] Outpatient Services/Studies: OPAT: Order / [...] nurse practitioner, clinical nurse specialist or physician's medical office assistant who is working directly with them, had a face to face encounter that meets the physician face to face encounter requirements with this patient on 09/19/2015 The encounter with the patient was in whole, or in part, for the following medical condition, whichis the primary reason for home health care services: [ ESRD, on HD at [facility] HD Thu/Thu/Thursday since January 2015. [...] changes will need to be obtained from [facility] Transplant Clinic [phone] or from this patient's PCP: ALBANIA NUNEZ DO [address] [place] [address] All VNA agencies which cover the area of patient's residence have been reviewed, either verbally greg writing, and patient/family have chosen the indicated home health care agency for home services. [facility] PHONE: [phone] FAX: [phone] RN visits to begin on day after patient's discharge to home, if possible. RN visits 3-4times/week for post-operative assessment, checking for signs and symptoms of infection. Assess nutrition and hydration/abdomen/stooling pattern. Check weight and intake/output records. Reinforcement of teaching about LEEANNA drain care/emptying and recording amount of drainage. Cardio-pulmonary assessment. Medication review. Central line care per [facility] OPAT protocol. Reinforcement of teaching about IV antibiotic administration. Question Response Notes Agency name and contact information [facility] Patient location post discharge home What services are requested Registered Nurse Responsible MD post discharge contact info [facility] Dr. Larry Larkin and PCP Albania Nunez Referral for Outpatient Antibiotics Question Response Notes Vendor / contact information [facility] Patient location post discharge home Service requested Central line care per OPAT protocol and IV antibiotic Responsible MD post discharge contact info [facility] Dr. Larry Larkin and Dr. Brian [...] may be used if needed and are uvda-vke-rvnzhtu (OTC) medications available at most local pharmacies. Prunes or prune juice, taken daily, can also be helpful for constipation treatment or prevention and are available at most [employer]. Driving Restrictions*: - No driving if you [...] Medicine sheet provided to you by the Chassis Wirer to guide your daily doses. If you did notreceive some medications from the pharmacy at [facility] it is likely because they are [...] with the Transplant Surgery Outpatient Clinic - [id number] in 2-4 days. You will recieve a letter in the mail and/or a phone call with information about this appointment. Please call [phone] (clinic number for appointments) to confirm date [...] blood work. Your surgeon may not be Summer Clerk, especially during the night or on weekends, so be ready to describe yourself and your surgery when you call. General Instructions Office of Care Management/Assistant Cook(CM) Home IV Antibiotic Therapy Referral Note. Report received from Dr. Brian Grande that patient will require continued home IV antibiotic therapyafter discharge from the hospital. Met with patient/family to discuss vendor and visiting nurse choices for home IV antibiotic therapy. Reviewed Home Infusion Vendors and Home Health Agencies that serve patient???s address and accept patient???s insurance. Home Health Agency: Patient requested referral to [facility]. PHONE: [phone] FAX: [phone] Referrals sent via [employer]ischarge. Home Infusion Vendor: Patient requested referral to [place], [place] or Referrals sent via edischarge. Diabetic Status: Patient is a diabetic. IV access: Type of line: Tunneled CVC Date placed: 09/19/15 CM signature Ruchi Tang RN Pager# [phone] [facility] Vascular/Interventional Radiology DISCHARGE INSTRUCTIONS FOR TUNNELED CENTRAL [...] is during regular working hours, please call [phone]. If it is after 5 pm or a weekend or holiday, call [phone] and ask for the Whipper sludge control attendant for Interventional Radiology. You have received [...] 09/19/2015 4:12 PM EDT Office of Care Management/Assistant Cook(CM) Home IV Antibiotic Therapy Referral Note. Report received from Dr. Brian Grande that patient will require continued home IV antibiotic therapyafter discharge from the hospital. Met with patient/family to discuss vendor and visiting nurse choices for home IV antibiotic therapy. Reviewed Home Infusion Vendors and Home Health Agencies that serve patient???s address and accept patient???s insurance. Home Health Agency: Patient requested referral to [facility] PHONE: [phone] FAX: [phone] Referrals sent via edischarge. Home Infusion Vendor: Patient requested referral to [place], [place] or Referrals sent via edischarge. Diabetic Status: Patient is a diabetic. IV access: Type of line: Tunneled CVC Date placed: 09/19/15 CM signature Ruchi Tang RN Pager# [phone] [facility] Vascular/Interventional Radiology DISCHARGE INSTRUCTIONS FOR TUNNELED CENTRAL [...] is during regular working hours, please call [phone]. If it is after 5 pm or a weekend or holiday, call [phone] and ask for the Whipper sludge control attendant for Interventional Radiology. You have received [...] may be used if needed and are ghdb-dpi-bjxlmrx (OTC) medications available at most local pharmacies. Prunes or prune juice, taken daily, can also be helpful for constipation treatment or prevention and are available at most [employer]. Driving Restrictions*: - No driving if you [...] Medicine sheet provided to you by the Chassis Wirer to guide your daily doses. If you did notreceive some medications from the pharmacy at [facility] it is likely because they are [...] with the Transplant Surgery Outpatient Clinic - [id number] in 2-4 days. You will recieve a letter in the mail and/or a phone call with information about this appointment. Please call [phone] (clinic number for appointments) to confirm date [...] blood work. Your surgeon may not be Summer Clerk, especially during the night or on weekends, [...] NEPHRECTOMY performed by Larry Larkin MD at [facility] OR? Pro transplant, prep cadaver renal graft?? N/A?? 09/16/2015? @PREPARATION CADAVERIC RENAL ALLOGRAFT performed by Larry Larkin MD at [facility] OR? N/A?? 09/16/2015? ORGAN ACQUISITION RENAL, CADAVERIC performed by Larry Larkin MD at [facility] OR?? Social History: Patient lives with spouse in [place], [place].?? He reports he & not working [...] minutes Total timed interventions: 23 minutes Pager: [phone] Nicole Soares Physical Therapy Rehabilitation Department * [...] their responsibilities at home. Samia Escalante RN [facility] Solid Organ Transplant [phone] (Pager: [phone]) * Kyle Huizar APRN - 09/20/2015 12:47 [...] single lumen CVC was placed 09/19/15 for usp antibiotics. The CVC has not been used, according to nursing. Possible discharge home today. Plan: We will sign off, but would be happy to see patient again for any issues. KYLE HUIZAR APRN 09/20/2015 * Herlinda Bell, RD - 09/20/2015 12:02 PM EDT TRANSPLANT NUTRITION Post-Transplant Discharge Diet Instruction This scientific technical writer met with Ethel Bolden a 65 [...] requirements decrease to ~85gms per day. This scientific technical writer stressed importance of adequate hydration and [...] prior to his leaving. Samia Escalante RN [facility] Solid Organ Transplant [phone] (Pager: [phone]) * Therese Carpio RN - 09/19/2015 2:26 PM EDT 1410 To procedure room 2 via stretcher. Onto table in supine position. All monitors, O2, safety strap in place. Med's per protocol. * Herlinda Bell RD - 09/19/2015 11:11 AM EDT TRANSPLANT NUTRITION Post-Transplant Nutrition Visit This scientific technical writer met with Ethel Toth Helderneri a 65 year old male for nutrition [...] decrease to ~82gms per day. Summary/Plan: This scientific technical writer will initiate diet teaching tomorrow with patient and . Follow up with patient after discharge in outpatient solid organ transplant clinic. Remain available for questions/concerns. * Ruchi Tang, RN - 09/19/2015 10:00 AM EDT Care Management/ Pager# [phone]/ Transfer note and Discharge planning S: Getting everything organized for me to be able to go home tomorrow sounds perfect. I was doing HD at [facility] on Thursday/Thursday/Thursday since January 2015. I won't be needing to go there anymore. Getting the referrals in to [facility] and [facility] is a good plan. Thanks for your help. O: Met with patient this morning. [facility] Patient is POD# 3 donor [...] OOB ambulating with minimal assistance. Message to Moisture Tester about [facility] (M/W/F) prior to admission. Message to Moisture Tester for referral to [facility] and to [facility]. Call to Anthony of [facility] to discuss referral for CVC care and IV antibiotic. Care Management note for MD Discharge Summary (with VNA and IV antibiotic Vendor information) completed and pended by scientific technical writer. Discussion with electrical timing device calibrator Tamela Mckeon. A/P: Discharge planning underway for likely patient discharge on 09/19. At time of patient's discharge, bell staff to call report to VNRay and MD Discharge Summary . * Ruchi Tang RN - 09/19/2015 9:47 AM EDT Office of Care Management/Assistant Cook(CM) Home IV Antibiotic Therapy Referral Note. Report received from Dr. Brian Grande that patient will require continued home IV antibiotic therapyafter discharge from the hospital. Met with patient/family to discuss vendor and visiting nurse choices for home IV antibiotic therapy. Reviewed Home Infusion Vendors and Home Health Agencies that serve patient???s address and accept patient???s insurance. Home Health Agency: Patient requested referral to [facility] PHONE: [phone] FAX: [phone] Referrals sent via edischarge. Home Infusion Vendor: Patient requested referral to [place], [place] or Referrals sent via edischarge. Diabetic Status: Patient is a diabetic. IV access: Type of line: Tunneled CVC Date placed: 09/19/15 CM signature Ruchi Tang RN Pager# [phone] * Que Amaro MD - 09/19/2015 9:03 [...] on 07/31/2015 for an AV fistulagram without SHEET METAL WORKER APPRENTICE. He has had prior R IJ TDC [...] [facility] OR ??? Pro transplantation of kidney N/A 09/16/2015 @KIDNEY TRANSPLANT, WITHOUT RECIPIENT NEPHRECTOMY performed by Larry Larkin MD at [facility] OR ??? Pro transplant, prep cadaver renal graft N/A 09/16/2015 @PREPARATION CADAVERIC RENAL ALLOGRAFT performed by Larry Larkin MD at [facility] OR ??? N/A 09/16/2015 ORGAN ACQUISITION RENAL, CADAVERIC performed by Larry Larkin MD at [facility] OR No Known Allergies Scheduled Meds: ??? [...] Amaro on 05.09.15. Patient last seen in [place] 07/31/2015 for an AV fistulagram without SHEET METAL WORKER APPRENTICE. He has had prior R IJ TDC [...] of : 1950 AGE 65 y.o. Address: [address] [place] [phone] (home) [phone] (work) Mobile: Telephone Information: Referring Provider: [place] [...] [facility] OR ??? Pro transplantation of kidney N/A 09/16/2015 @KIDNEY TRANSPLANT, WITHOUT RECIPIENT NEPHRECTOMY performed by Larry Larkin MD at [facility] OR ??? Pro transplant, prep cadaver renal graft N/A 09/16/2015 @PREPARATION CADAVERIC RENAL ALLOGRAFT performed by Larry Larkin MD at [facility] OR ??? N/A 09/16/2015 ORGAN ACQUISITION RENAL, CADAVERIC performed by Larry Larkin MD at [facility] OR Date/Procedure? Med's given/comments 01/08/2015: [...] informed this patient that they require a ambulette driver to be present and in the building to drive them home after this procedure. In the absence of a ambulette driver, IR will not be able to perform this procedure and will need to reschedule. Pt verbalized understanding of these i nstructions during the pre-procedure education via phone. (initials) * Andrei Gill, PT - 09/18/2015 4:40 PM EDT Physical Therapy Note Visit #2 Patient profile: Ethel Bolden is a 65 y.o. male admitted on 09/16/2015 by Larry Anuglo MD with PMH significant for DMII, HTN, [...] performed by Que Amaro MD at [facility] MA[facility] OR ??? Pro transplantation of kidney N/A 09/16/2015 @KIDNEY TRANSPLANT, WITHOUT RECIPIENT NEPHRECTOMY performed by Larry Larkin MD at [facility] OR ??? Pro transplant, prep cadaver renal graft N/A 09/16/2015 @PREPARATION CADAVERIC RENAL ALLOGRAFT performed by Larry Larkin MD at [facility] OR ??? N/A 09/16/2015 ORGAN ACQUISITION RENAL, CADAVERIC performed by Larry Larkin MD at [facility] OR Social History: Patient lives with spouse in [place], [place]. He reports he & not working [...] Assessment: Ethel Gomez Keniamarialuisaneri presents to POD #2 s/p kidney transplant. [...] 20 minutes PARKER GILL, PT 09/18/2015 Pager: [phone] Physical Therapy Rehabilitation Department * Pauline Miles RN - 09/18/2015 4:18 PM EDT 1615: Pt [facility] via bed from [facility]. Skyla initiated. Call robles within reach. VS stable. [facility]. * Mundo Barry RN - 09/18/2015 1:35 PM EDT Nurse Assistant Cook Initial Assessment Mundo Barry RN, pager [phone] Office of Care Management 09/18/2015 Ethel Bolden [id number] Date of : 1950 Admission Diagnosis: Renal failure [N19]; per adm note: PMH significant for HCV with hemodialysis dependent ESRD 2/2 HTN who presents today for [facility] high risk donor kidney transplantation. Past [...] History Narrative None on file Lives in [place], [place] in own home w/ spouse Mundo and 26 y.o. Son. Code Status: Full. Advance Directives:none in [facility]. Admission Status: written and signed by attending as IPI. Insurance: Medicare A,B and D through [employer] and BC/BS. Pharmacy: [address] Baseline Functional Status: self reports no [...] with changing needs. Mundo Barry RN, MSN Assistant CookKeg Raiser of Care Management Pager [phone] Phone: [phone] * Brian Grande MD - 09/18/2015 1:00 [...] BECK MD Fellow, Infectious Disease 09/18/2015 Pager [phone] Addendum Asked to comment on the possibility [...] the ceftriaxone. Selena Beck ID fellow Pager [phone] I agree with the recommendations of Dr. Beck after discussion with her and review of her note.I did not examine the patient myself today. Brian Grande MD * Tal Eagle MD - 09/18/2015 9:54 AM EDT TRANSPLANT NEPHROLOGY CONSULT PROGRESS NOTE REASON FOR CONSULTATION: medical management of transplant kidney referred by Dr. Larkin Ethel Bolden [id number] 1950 Transplant ID: Date: 09/18/2015 Patient: Ethel Bolden Transplant Date: 09/16/2015 Organ(s) donor Squaxin organ diagnosis: Renal biopsy showing diabetic and [...] kidney. Pt was getting HD MWF at [facility]. He was referred by Dr. Nunez for pre transplant evaluation for his kidney and was seen by Dr Eagle on 04/19/2015. He apparently had previouslybeen evaluated for transplant at the [facility]. He was told he will need a [...] Shagufta Villasenor MD Nephrology fellow Pager # [phone] I reviewed all of the above findings and assessment of Dr. Villasenor, examined the patient and formulated the recommendations which accurately reflect mine. * Dyan Rodriguez Domenic - 09/18/2015 9:52 AM EDT INPATIENT [...] all four extremities spontaneously. Lines/Drains: PIV Whaley ELEANNA drain Recent Labs 09/18/15 0231 09/17/15 1131 [...] Urine picked up throughout shift. Weaning from HAND CLOTH FOLDER. Report given to next shift. * Samia [...] his second Simulect infusion. Samia Escalante RN [facility] Solid Organ Transplant [phone] (Pager: [phone]) * Tal Eagle MD - 09/17/2015 10:15 [...] which accurately reflect mine. * Jesus Bradley [facility] - 09/16/2015 5:40 PM EDT Clinical Pharmacist Note-Vanc Ethel Bolden [id number] 1950 Ethel Bolden is a 65 y.o. [...] have. Alternately, during off-hours you may call [phone] to contact a pharmacist. JESUS BRADLEY RPH Pager [phone] * Brenda Masterson RN - 09/16/2015 11:24 [...] prior to OR. MD Saravia at bedside, Senior Datastage Developer, Ninoska GERBER will return for consent. Will continue to monitor. documented in this encounter H&P Notes * Marcus Saravia MD - 09/16/2015 9:57 AM EDT [facility] Department of Transplant Surgery H&P Note [...] performed by Que Amaro MD at [facility] MA[facility] OR ALL: No Known Allergies [...] ESRD 2/2 HTN who presents today for [facility] high risk donor kidney transplantation. Stat CBC, [...] when outof bed;room near unit station 09/19/15 1893 Musculoskeletal Interventions Activity/Level of Assistance up in [...] Outcome: Ongoing (Interventions Implemented as Appropriate) 09/19/15 3017 Plan of Care Review Plan of Care Outcome Status ongoing (interventions implemented as appropriate) Progress progress toward functional goals as expected Coping/Psychosocial Response Interventions Plan of Care Reviewed with patient OUTCOME EVALUATION NOTE: OUTCOME SUMMARY: Surgica sites WNL, ANALYTICS INTERN, alessandro and well approximated. Patient transferred to IR for central access, for home Abx regime. Patients FC removed, patient voiding with no concerns. Reinforced teaching ofpatient documentation of I&O. Patient IVF d/c, and pt tolerating PO nutrition. Home Abx teaching completed during shift at approx 1800 by [place] [facility]. PLAN MOVING FORWARD: Patient +Flatus awaiting BM. [...] am is 5.2. Pt received prn oxycodone [id number]. Pt was OOB walked 100ft w/o any [...] kidney referred by Dr. Larkin Ethel Gomez Keniamarialuisaneri [id number] 1950 Transplant ID: Date: 09/17/2015 Patient: Ethel Bolden Transplant Date: 09/16/2015 Organ(s) donor Squaxin organ diagnosis: Renal biopsy showing diabetic and [...] kidney. Pt was getting HD MWF at [facility]. He was referred by Dr. Nunez for pre transplant evaluation for his kidney and was seen by Dr Eagle on 04/19/2015. He apparently had previouslybeen evaluated for transplant at the [facility]. He was told he will need a [...] performed by Que Amaro MD at [facility] OR ??? Pro transplantation of kidney N/A 09/16/2015 @KIDNEY TRANSPLANT, WITHOUT RECIPIENT NEPHRECTOMY performed by Larry Larkin MD at [facility] OR ??? Pro transplant, prep cadaver renal graft N/A 09/16/2015 @PREPARATION CADAVERIC RENAL ALLOGRAFT performed by Larry Larkin MD at [facility] OR FH: Father had heart [...] Shagufta Villasenor MD Nephrology fellow Pager # [phone] I reviewed all of the above findings and assessment of Dr. Villasenor, examined the patient and formulated the recommendations which accurately reflect mine. 80 Min., >50%(40 min) in direct face to face pediatric genetic counselor. o Discussion with the patient and/or [...] the donor had positive blood cultures. Mr. Bolden presented on 09/15 for a renal transplant [...] performed by Que Amaro MD at [facility] OR ??? Pro transplantation of kidney N/A 09/16/2015 @KIDNEY TRANSPLANT, WITHOUT RECIPIENT NEPHRECTOMY performed by Larry Larkin MD at [facility] OR ??? Pro transplant, prep cadaver renal graft N/A 09/16/2015 @PREPARATION CADAVERIC RENAL ALLOGRAFT performed by Larry Larkin MD at [facility] OR Social History and Habits: [...] continue to follow patient. Page us at [phone] with any further questions or concerns. Recommendations are above and were discussed with the primary treating team. ID will sign off. Please page if further consultation required. This patient was seen and discussed with ID attending Dr. Harjinder BECK MD Fellow, Infectious Disease 09/17/2015 Pager [phone] I interviewed, examined and discussed the patient with Dr. Beck, with whose findings and recommendations I concur. I also reviewed all pertinent labs and radiology. Would treat the GCS with ceftriaxone as per Dr. Beck, with duration in part driven by final results of final cultures from donor. Brian Grande MD * Op Note - Larry Larkin MD - 09/17/2015 11:03 AM EDT [facility] Operative Note Patient Name: Ethel Bolden : [id number] MR#: [id number] Case Date: 09/16/2015 Surgeon: Surgeon(s) and Role: * Larry Larkin MD - Primary * Marcus Saravia MD Preoperative diagnosis: Kidney transplant. UNOS #[id number] Postoperative diagnosis: Kidney transplant. UNOS #[id number] Procedure(s): @KIDNEY TRANSPLANT, WITHOUT RECIPIENT NEPHRECTOMY @PREPARATION [...] to adjacent structures, lymphocoele, urtereral leak, stroke, NM, and . 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 This was a [facility] high risk donor. Procedure and Findings: [...] performed by Que Amaro MD at [facility] OR ??? Pro transplantation of kidney N/A 09/16/2015 @KIDNEY TRANSPLANT, WITHOUT RECIPIENT NEPHRECTOMY performed by Larry Larkin MD at [facility] OR ??? Pro transplant, prep cadaver renal graft N/A 09/16/2015 @PREPARATION CADAVERIC RENAL ALLOGRAFT performed by Larry Larkin MD at [facility] OR Social History: Patient lives with spouse in [place], [place]. He reports he & not working [...] Pt seen for evaluation today. Pain: using HAND CLOTH FOLDER but no c/o pain. Vital Signs: Sp02: [...] and wanting to sit to eat breakfast OP=118/64 and RN notified. Standing: he preferred to [...] 0 minutes ANDREI GILL PT 09/17/2015 Pager: [phone] Physical Therapy Rehabilitation Department * Plan of [...] toward outcome * Brief Op Note - Macrus Saravia MD - 09/16/2015 2:55 PM EDT Brief Operative Note Patient Name: Ethel Bolden : [id number] MR#: [id number] Case Date: 09/16/2015 Surgeon: Surgeon(s) and Role: * Larry Larkin MD - Primary * Marcus Saravia MD Preoperative diagnosis: Kidney transplant. UNOS #[id number] Postoperative diagnosis: Kidney transplant. [facility]OS #[id number] Procedure(s): @KIDNEY TRANSPLANT, WITHOUT RECIPIENT NEPHRECTOMY @PREPARATION [...] PM EDT Office Visit Cardiology at [address] [phone] Jay Urban MD [facility] [place] [address] 04/15/2024 10:00 AM EDT Hospital Encounter [place] [phone] Arrived Scheduled Referrals Name Type Priority Associated Diagnoses Order Schedule OPAT: Order / Recommendation for Post Discharge IV Antibiotic Management Outpatient Referral Routine Renal transplant recipient Ordered: 09/18/2015 documented as of this encounter Procedures Procedure Name Priority Date/Time Associated Diagnosis Comments TELEGRAPH EQUIPMENT MAINTAINER SCAN 09/21/2015 12:00 AM EDT POCT GLUCOSE [...] 09/16/2015 11:41 AM EDT Kidney transplant. UNOS #[id number] @PREPARATION CADAVERIC RENAL ALLOGRAFT (WRVU 9.24) 09/16/2015 11:41 AM EDT Kidney transplant. [facility]OS #[id number] @KIDNEY TRANSPLANT, WITHOUT RECIPIENT NEPHRECTOMY (WRVU 39.88) 09/16/2015 11:41 AM EDT Kidney transplant. UNOS #[id number] CMV ANTIBODY, IGG Routine 09/16/2015 10: 28 [...] in this encounter Results * SCAN DOC: TELEGRAPH EQUIPMENT MAINTAINER (09/21/2015 12:00 AM EDT) Anatomical Region Laterality Modality Other Scanning Provider MEDIA MGR SCAN EXT O RDR/RSLT * POCT Glucose (09/20/2015 11:23 AM EDT) Glucose, POC 144 65 - 199 mg/dL [facility] Comment: Supplemental ranges: <140 mg/dL before meals <180 mg/dL all other times of the day Blood specimen (specimen) 09/20/2015 11:23 AM EDT 09/20/2015 11:23 AM EDT Larry Larkin MD POINT OF CARE TEST O RDERABLES Performing Organization Address City/[facility]/ZIP Co de Phone Number [facility] [place] [address] * Tacrolimus level (09/20/2015 8:04 AM EDT) Tacrolimus <3.0 ng/mL [facility] Comment:Trough therapeutic: 5-15 ng/mL Blood specimen (specimen) 09/20/2015 8:04 AM EDT 09/20/2015 10:58 AM EDT Narrative Resulting Agency Comment Spec In Lab Larry Larkin MD CHEMISTRY ORDERABLES Performing Organization Address City/[facility]/ZIP Co de Phone Number [facility] [place] [address] * POCT Glucose (09/20/2015 7:10 AM EDT) Glucose, POC 123 65 - 199 mg/dL [facility] Comment: Supplemental ranges: <140 mg/dL before meals <180 mg/dL all other times of the day Blood specimen (specimen) 09/20/2015 7:10 AM EDT 09/20/2015 7:10 AM EDT Larry Larkin MD POINT OF CARE TEST O RDERABLES Performing Organization Address City/[facility]/ZIP [place] [address] * (ABNORMAL) Differential, Automated (09/20/2015 4:58 AM EDT) Neutrophil % 80.6 % [facility] Neutrophil Absolute 7.65(H) 1.50 - 6.30 x10(3)/mc L [facility] Lymph % 7.2 % [facility] Lymphocytes Abs 0.7(L) 1.0 - 3.6 x10(3)/ L [facility] Monocyte % 11.9 % [facility] Monocyte Abs 1.1(H) 0.2 - 1.0 x10(3)/ L [facility] Eos % 0.0 % [facility] Eosinophils Abs 0.0 0.0 - 0.5 x10(3)/ L [facility] Basophil % 0.0 % [facility] Baso Absolute 0.0 0.0 - 0.2 x10(3)/ L [facility] Immature Gran % 0.30 % [facility] Comment: Immature granulocytes(IG's)percentage and absolute count will include metamyelocytes, myelocytes, and promyelocytes. Blood smears from CBCs yielding IG's will be scanned manually for concordance. If this scan disagrees with the automated IG or if promyelocytes are noted, a manual differential will be performed. Immature Gran Absolute 0.03 0.00 - 0.05 x10(3)/ L [facility] Blood specimen (specimen) 09/20/2015 4:58 AM EDT 09/20/2015 5:17 AM EDT Narrative Resulting Agency Comment Spec In Lab Larry Larkin MD HEMATOLOGY ORDERABLE S Performing Organization Address City/[facility]/ZIP Co de Phone Number [facility] [place] [address] * (ABNORMAL) Hemogram (09/20/2015 4:58 AM EDT) [facility] White Blood Cell 9.5 4.0 - 10.0 x10(3)/mc L [facility] Red Blood Cell 2.95(L) 4.63 - 6.08 x10(6)/mc L [facility] Hemoglobin 9.4(L) 13.7 - 17.5 gm/dL [facility] Hematocrit 27.5(L) 40.0 - 51.0 % [facility] Mean Cell Volume 93.2(H) 79.0 - 92.0 fL [facility] Mean Cell Hemoglobin 31.9 25.6 - 32.2 pg [facility] Mean Cell Hemoglobin Concentration 34.2 32.0 - 36.5 gm/dL [facility] Platelet 234 145 - 370 x10(3)/mc L [facility] RDW Standard Deviation 50.1(H) 35.0 - 46.0 fL [facility] RDW coefficient of variation 14.6(H) 10.9 - 14.4 % [facility] Mean Platelet Volume 9.4 9.0 - 12.0 fL [facility] Blood specimen (specimen) 09/20/2015 4:58 AM EDT 09/20/2015 5:17 AM EDT Narrative Resulting Agency Comment Spec In Lab Larry Larkin MD HEMATOLOGY ORDERABLE S [facility] [place] [address] * (ABNORMAL) Hepatic Function Panel (09/20/2015 4:58 AM EDT) [facility] Protein, Total 6.0(L) 6.1 - 8.0 gm/dL [facility] Albumin 3.1(L) 3.2 - 5.2 gm/dL [facility] Aspartate Aminotransferase 19 0 - 39 unit/L [facility] Alanine Aminotransferase 17 0 - 55 unit/L [facility] Alkaline Phosphatase 43 40 - 120 unit/L [facility] Bilirubin, Total 0.5 0.2 - 1.3 mg/dL [facility] Bilirubin, Direct 0.1 0.0 - 0.3 mg/dL [facility] Blood specimen (specimen) 09/20/2015 4:58 AM EDT 09/20/2015 5:17 AM EDT Narrative Resulting Agency Comment Spec In Lab Larry Larkin MD CHEMISTRY ORDERABLES Performing Organization Address [facility] Co de Phone Number [facility] [place] [address] * Phosphorus (09/20/2015 4:58 AM EDT) Phosphorus 3.0 2.5 - 4.5 mg/dL [facility] Blood specimen (specimen) 09/20/2015 4:58 AM EDT 09/20/2015 5:17 AM EDT Narrative Resulting Agency Comment Spec In Lab Larry Larkin MD CHEMISTRY ORDERABLES Performing Organization Address [facility] Co de Phone Number [facility] [place] [address] * Magnesium (09/20/2015 4:58 AM EDT) Magnesium 0.89 0.69 - 1.07 mmol/L [facility] Blood specimen (specimen) 09/20/2015 4:58 AM EDT 09/20/2015 5:17 AM EDT Narrative Resulting Agency Comment Spec In Lab Larry Larkin MD CHEMISTRY ORDERABLES Performing Organization Address [facility] Co de Phone Number [facility] [place] [address] * (ABNORMAL) Basic Metabolic Panel (non-fasting) (09/20/2015 4:58 AM EDT) Glucose 130 65 - 199 mg/dL [facility] Comment:Diabetes: >=200 mg/d L plus symptoms Blood Urea Nitrogen 60(H) 10 - 20 mg/dL [facility] Creatinine 2.30(H) 0.80 - 1.50 mg/dL [facility] Comment: result rechecked-monty Please note that the pediatric reference intervals supplied above were not validated at [facility]. Results from pediatric patients should be interpreted in conjunction to the patient's age, height and muscle mass. Sodium 144 135 - 145 mmol/L [facility] Potassium 5.1(H) 3.5 - 5.0 mmol/L [facility] Comment: Please note: ??Patients with WBC >100,000 may have falsely elevated Potassium levels. ??For accurate Potassium quantification in these patients send serum separator tube (gold top) for subsequent determinations. ??Contact the Clinical Chemistry Laboratory if there are any questions. Chloride 108(H) 98 - 107 mmol/L [facility] Carbon Dioxide 23 22 - 31 mmol/L [facility] Anion Gap 13 5 - 15 mmol/L [facility] Calcium 9.0 8.5 - 10.5 mg/dL [facility] Est Glomerular Filtration Rate 28(L) >=60 [facility] Comment: [...] the following links into your internet browser. [email or web address] Blood specimen (specimen) 09/20/2015 4:58 AM EDT 09/20/2015 5:17 AM EDT Narrative Resulting Agency Comment Spec In Lab Larry Larkin MD CHEMISTRY ORDERABLES Performing Organization Address [facility] Co de Phone Number [facility] [place] [address] * POCT Glucose (09/19/2015 9:00 PM EDT) Glucose, POC 183 65 - 199 mg/dL [facility] Comment: Supplemental ranges: <140 mg/dL before meals <180 mg/dL all other times of the day Blood specimen (specimen) 09/19/2015 9:00 PM EDT 09/19/2015 9:00 PM EDT Larry Larkin MD POINT OF CARE TEST O RDERABLES Performing Organization Address [facility] Co de Phone Number [facility] [place] [address] * POCT Glucose (09/19/2015 4:19 PM EDT) Glucose, POC 151 65 - 199 mg/dL [facility] Comment: Supplemental ranges: <140 mg/dL before meals <180 mg/dL all other times of the day Blood specimen (specimen) 09/19/2015 4:19 PM EDT 09/19/2015 4:19 PM EDT Larry Larkin MD POINT OF CARE TEST O TED Performing Organization Address [facility] Co de Phone Number [facility] [place] [address] * IR central venous access (09/19/2015 3:38 [...] Catheter ready for use. Procedure performed by: ??Kyel Huizar APRN Attending: ?Radha was present for procedure. Larry Larkin MD IMG IR ORDERABLES * POCT Glucose (09/19/2015 11:56 AM EDT) Glucose, POC 122 65 - 199 mg/dL [facility] Comment: Supplemental ranges: <140 mg/dL before meals <180 mg/dL all other times of the day Blood specimen (specimen) 09/19/2015 11:56 AM EDT 09/19/2015 11:56 AM EDT Larry Larkin MD POINT OF CARE TEST O RDERABLES [facility] [place] [address] * POCT Glucose (09/19/2015 7:06 AM EDT) Pathologist [facility] Glucose, POC 169 65 - 199 mg/dL [facility] Comment: Supplemental ranges: <140 mg/dL before meals <180 mg/dL all other times of the day Blood specimen (specimen) 09/19/2015 7:06 AM EDT 09/19/2015 7:06 AM EDT Larry Larkin MD POINT OF CARE TEST O RDERABLES Performing Organization Address City/[facility]/ZIP Co de Phone Number [facility] [place] [address] * (ABNORMAL) Differential, Automated (09/19/2015 6:14 AM EDT) [facility] Neutrophil % 87.3 % [facility] Neutrophil Absolute 10.11(H) 1.50 - 6.30 x10(3)/mc L [facility] Lymph % 3.0 % [facility] Lymphocytes Abs 0.4(L) 1.0 - 3.6 x10(3)/mc L [facility] Monocyte % 9.5 % [facility] Monocyte Abs 1.1(H) 0.2 - 1.0 x10(3)/mc L [facility] Eos % 0.0 % [facility] Eosinophils Abs 0.0 0.0 - 0.5 x10(3)/mc L [facility] Basophil % 0.0 % [facility] Baso Absolute 0.0 0.0 - 0.2 x10(3)/mc L [facility] Immature Gran % 0.20 % [facility] Comment: Immature granulocytes(IG's)percentage and absolute count will include metamyelocytes, myelocytes, and promyelocytes. Blood smears from CBCs yielding IG's will be scanned manually for concordance. If this scan disagrees with the automated IG or if promyelocytes are noted, a manual differential will be performed. Immature Gran Absolute 0.02 0.00 - 0.05 x10(3)/mc L [facility] Blood specimen (specimen) 09/19/2015 6:14 AM EDT 09/19/2015 6:23 AM EDT Narrative Resulting Agency Comment Spec In Lab Larry Larkin MD HEMATOLOGY ORDERABLE S [facility] [place] [address] * (ABNORMAL) Hemogram (09/19/2015 6:14 AM EDT) White Blood Cell 11.6(H) 4.0 - 10.0 x10(3)/[facility] Red Blood Cell 2.92(L) 4.63 - 6.08 x10(6)/[facility] Hemoglobin 9.1(L) 13.7 - 17.5 gm/dL [facility] Hematocrit 27.1(L) 40.0 - 51.0 % [facility] Mean Cell Volume 92.8(H) 79.0 - 92.0 fL [facility] Mean Cell Hemoglobin 31.2 25.6 - 32.2 pg [facility] Mean Cell Hemoglobin Concentration 33.6 32.0 - 36.5 gm/dL [facility] Platelet 206 145 - 370 x10(3)/mc L [facility] RDW Standard Deviation 48.3(H) 35.0 - 46.0 fL [facility] RDW coefficient of variation 14.2 10.9 - 14.4 % [facility] Mean Platelet Volume 9.3 9.0 - 12.0 fL [facility] Blood specimen (specimen) 09/19/2015 6:14 AM EDT 09/19/2015 6:23 AM EDT Narrative Resulting Agency Comment Spec In Lab Larry Larkin MD HEMATOLOGY ORDERABLE S Performing Organization Address [facility] Co de Phone Number [facility] [place] [address] * Cryoglobulin (09/19/2015 6:14 AM EDT) Pathologist [facility] Cryoglobulin See Note [facility] Comment: Cryoglobulins negative at 24 and 72 hours. This test was developed and its performance characteristics determined by [facility]. It has not been cleared or [...] Larkin MD CHEMISTRY ORDERABLES Performing Organization Address [facility] Co de Phone Number [facility] [place] [address] * (ABNORMAL) Hepatic Function Panel (09/19/2015 6:14 AM EDT) Pathologist [facility] Protein, Total 6.1 6.1 - 8.0 gm/dL [facility] Albumin 3.1(L) 3.2 - 5.2 gm/dL [facility] Aspartate Aminotransferase 20 0 - 39 unit/L [facility] Alanine Aminotransferase 13 0 - 55 unit/L [facility] Alkaline Phosphatase 43 40 - 120 unit/L [facility] Bilirubin, Total 0.4 0.2 - 1.3 mg/dL [facility] Bilirubin, Direct 0.1 0.0 - 0.3 mg/dL [facility] Blood specimen (specimen) 09/19/2015 6:14 AM EDT 09/19/2015 6:23 AM EDT Narrative Resulting Agency Comment Spec In Lab Larry Larkin MD CHEMISTRY ORDERABLES Performing Organization Address City/[facility]/ZIP Co de Phone Number [facility] [place] [address] * Phosphorus (09/19/2015 6:14 AM EDT) [facility] Phosphorus 3.9 2.5 - 4.5 mg/dL [facility] Blood specimen (specimen) 09/19/2015 6:14 AM EDT 09/19/2015 6:23 AM EDT Narrative Resulting Agency Comment Spec In Lab Larry Larkin MD CHEMISTRY ORDERABLES Performing Organization Address [facility] Co de Phone Number [facility] [place] [address] * Magnesium (09/19/2015 6:14 AM EDT) [facility] Magnesium 0.85 0.69 - 1.07 mmol/L [facility] Blood specimen (specimen) 09/19/2015 6:14 AM EDT 09/19/2015 6:23 AM EDT Narrative Resulting Agency Comment Spec In Lab Larry Larkin MD CHEMISTRY ORDERABLES Performing Organization Address [facility] Co de Phone Number [facility] [place] [address] * (ABNORMAL) Basic Metabolic Panel (non-fasting) (09/19/2015 6:14 AM EDT) [facility] Glucose 138 65 - 199 mg/dL [facility] Comment:Diabetes: >=200 mg/d L plus symptoms Blood Urea Nitrogen 64(H) 10 - 20 mg/dL [facility] Creatinine 3.25(H) 0.80 - 1.50 mg/dL [facility] Comment: result [id number]-mkf Please note that the pediatric reference intervals supplied above were not validated at [facility]. Results from pediatric patients should be interpreted in conjunction to the patient's age, height and muscle mass. Sodium 142 135 - 145 mmol/L [facility] Potassium 4.6 3.5 - 5.0 mmol/L [facility] Comment: Please note: ??Patients with WBC >100,000 may have falsely elevated Potassium levels. ??For accurate Potassium quantification in these patients send serum separator tube (gold top) for subsequent determinations. ??Contact the Clinical Chemistry Laboratory if there are any questions. Chloride 108(H) 98 - 107 mmol/L [facility] Carbon Dioxide 21(L) 22 - 31 mmol/L [facility] Anion Gap 13 5 - 15 mmol/L [facility] Calcium 8.8 8.5 - 10.5 mg/dL [facility] Est Glomerular Filtration Rate 19(L) >=60 [facility] Comment: [...] the following links into your internet browser. [email or web address] Blood specimen (specimen) 09/19/2015 6:14 AM EDT 09/19/2015 6:23 AM EDT Narrative Resulting Agency Comment Spec In Lab Larry Larkin MD CHEMISTRY ORDERABLES [facility] [place] [address] * (ABNORMAL) Complement, Total (09/19/2015 6:14 AM EDT) Complement, Total 22(L) 30 - 75 unit/mL [facility] Comment: Test Performed by: [facility] [address], [place] [address] Release Of Information Specialist: Rosetta Conway, Ph.D. Blood specimen (specimen) 09/19/2015 6:14 AM EDT 09/19/2015 9:09 AM EDT Narrative Resulting Agency Comment Spec In Lab Larry Larkin MD CHEMISTRY ORDERABLES Performing Organization Address [facility] Co de Phone Number [facility] [place] [address] * C4 Complement (09/19/2015 6:14 AM EDT) Complement C4 29 10 - 40 mg/dL [facility] Blood specimen (specimen) 09/19/2015 6:14 AM EDT 09/19/2015 6:23 AM EDT Narrative Resulting Agency Comment Spec In Lab Larry Larkin MD CHEMISTRY ORDERABLES Performing Organization Address [facility] de Phone Number [facility] [address] * C3 Complement (09/19/2015 6:14 AM EDT) Complement C3 100 90 - 180 mg/dL [facility] Blood specimen (specimen) 09/19/2015 6:14 AM EDT 09/19/2015 6:23 AM EDT Narrative Resulting Agency Comment Spec In Lab Larry Larkin MD CHEMISTRY ORDERABLES Performing Organization Address [facility] de Phone Number [facility] [address] * POCT Glucose (09/18/2015 8:45 PM EDT) Glucose, POC 186 65 - 199 mg/dL [facility] Comment: Supplemental ranges: <140 mg/dL before meals <180 mg/dL all other times of the day Blood specimen (specimen) 09/18/2015 8:45 PM EDT 09/18/2015 8:45 PM EDT Larry Larkin MD POINT OF CARE TEST O RDERABLES Performing Organization Address City/[facility] Co de Phone Number [facility] [place] [address] * POCT Glucose (09/18/2015 3:48 PM EDT) Glucose, POC 173 65 - 199 mg/dL [facility] Comment: Supplemental ranges: <140 mg/dL before meals <180 mg/dL all other times of the day Blood specimen (specimen) 09/18/2015 3:48 PM EDT 09/18/2015 3:48 PM EDT Larry Larkin MD POINT OF CARE TEST O TED Performing Organization Address [facility] de Phone Number [facility] [place] [address] * POCT Glucose (09/18/2015 12:10 PM EDT) Glucose, POC 186 65 - 199 mg/dL [facility] Comment: Supplemental ranges: <140 mg/dL before meals <180 mg/dL all other times of the day Blood specimen (specimen) 09/18/2015 12:10 PM EDT 09/18/2015 12:10 PM EDT Larry Larkin MD POINT OF CARE TEST O TED Performing Organization Address [facility] de Phone Number [facility] [place] [address] * POCT Glucose (09/18/2015 7:58 AM EDT) Glucose, POC 133 65 - 199 mg/dL [facility] Comment: Supplemental ranges: <140 mg/dL before meals <180 mg/dL all other times of the day Blood specimen (specimen) 09/18/2015 7:58 AM EDT 09/18/2015 7:58 AM EDT Larry Larkin MD POINT OF CARE TEST O DENNYSERABG Performing Organization Address [facility]/ZIP [place] [address] * (ABNORMAL) Differential, Automated (09/18/2015 2:31 AM EDT) [facility] Neutrophil % 92.1 % [facility] Neutrophil Absolute 13.35(H) 1.50 - 6.30 x10(3)/mc L [facility] Lymph % 4.5 % [facility] Lymphocytes Abs 0.6(L) 1.0 - 3.6 x10(3)/ L [facility] Monocyte % 3.0 % [facility] Monocyte Abs 0.4 0.2 - 1.0 x10(3)/ L [facility] Eos % 0.0 % [facility] Eosinophils Abs 0.0 0.0 - 0.5 x10(3)/[facility] Basophil % 0.1 % [facility] Baso Absolute 0.0 0.0 - 0.2 x10(3)/ L [facility] Immature Gran % 0.30 % [facility] Comment: Immature granulocytes(IG's)percentage and absolute count will include metamyelocytes, myelocytes, and promyelocytes. Blood smears from CBCs yielding IG's will be scanned manually for concordance. If this scan disagrees with the automated IG or if promyelocytes are noted, a manual differential will be performed. Immature Gran Absolute 0.04 0.00 - 0.05 x10(3)/ L [facility] Blood specimen (specimen) 09/18/2015 2:31 AM EDT 09/18/2015 2:50 AM EDT Narrative Resulting Agency Comment Spec In Lab Larry Larkin MD HEMATOLOGY ORDERABLE S [facility] [place] [address] * (ABNORMAL) Hemogram (09/18/2015 2:31 AM EDT) [facility] White Blood Cell 14.5(H) 4.0 - 10.0 x10(3)/mc L [facility] Red Blood Cell 3.13(L) 4.63 - 6.08 x10(6)/mc L [facility] Hemoglobin 9.7(L) 13.7 - 17.5 gm/dL [facility] Hematocrit 29.3(L) 40.0 - 51.0 % [facility] Mean Cell Volume 93.6(H) 79.0 - 92.0 fL [facility] Mean Cell Hemoglobin 31.0 25.6 - 32.2 pg [facility] Mean Cell Hemoglobin Concentration 33.1 32.0 - 36.5 gm/dL [facility] Platelet 233 145 - 370 x10(3)/mc L [facility] RDW Standard Deviation 48.8(H) 35.0 - 46.0 fL [facility] RDW coefficient of variation 14.3 10.9 - 14.4 % [facility] Mean Platelet Volume 9.3 9.0 - 12.0 fL [facility] Blood specimen (specimen) 09/18/2015 2:31 AM EDT 09/18/2015 2:50 AM EDT Narrative Resulting Agency Comment Spec In Lab Larry Larkin MD HEMATOLOGY ORDERABLE S Performing Organization Address City/State/[facility] Co de Phone Number [facility] [place] [address] * (ABNORMAL) Hepatic Function Panel (09/18/2015 2:31 AM EDT) Pathologist [facility] Protein, Total 6.1 6.1 - 8.0 gm/dL [facility] Albumin 3.1(L) 3.2 - 5.2 gm/dL [facility] Aspartate Aminotransferase 21 0 - 39 unit/L [facility] Alanine Aminotransferase 14 0 - 55 unit/L [facility] Alkaline Phosphatase 49 40 - 120 unit/L [facility] Bilirubin, Total 0.4 0.2 - 1.3 mg/dL [facility] Bilirubin, Direct 0.1 0.0 - 0.3 mg/dL [facility] Blood specimen (specimen) 09/18/2015 2:31 AM EDT 09/18/2015 2:50 AM EDT Narrative Resulting Agency Comment Spec In Lab Larry Larkin MD CHEMISTRY ORDERABLES Performing Organization Address City/[facility] Co de Phone Number [facility] [place] [address] * (ABNORMAL) Phosphorus (09/18/2015 2:31 AM EDT) Phosphorus 5.5(H) 2.5 - 4.5 mg/dL [facility] Blood specimen (specimen) 09/18/2015 2:31 AM EDT 09/18/2015 2:50 AM EDT Narrative Resulting Agency Comment Spec In Lab Larry Larkin MD CHEMISTRY ORDERABLES Performing Organization Address [facility] Co de Phone Number [facility] [place] [address] * Magnesium (09/18/2015 2:31 AM EDT) Magnesium 0.77 0.69 - 1.07 mmol/L [facility] Blood specimen (specimen) 09/18/2015 2:31 AM EDT 09/18/2015 2:50 AM EDT Narrative Resulting Agency Comment Spec In Lab Larry Larkin MD CHEMISTRY ORDERABLES Performing Organization Address [facility] Co de Phone Number [facility] [place] [address] * (ABNORMAL) Basic Metabolic Panel (non-fasting) (09/18/2015 2:31 AM EDT) Glucose 168 65 - 199 mg/dL [facility] Comment:Diabetes: >=200 mg/d L plus symptoms Blood Urea Nitrogen 69(H) 10 - 20 mg/dL [facility] Creatinine 6.26(H) 0.80 - 1.50 mg/dL [facility] Comment: Please note that the pediatric reference intervals supplied above were not validated at [facility]. Results from pediatric patients should be interpreted in conjunction to the patient's age, height and muscle mass. Sodium 137 135 - 145 mmol/L [facility] Potassium 5.2(H) 3.5 - 5.0 mmol/L [facility] Comment: Please note: ??Patients with WBC >100,000 may have falsely elevated Potassium levels. ??For accurate Potassium quantification in these patients send serum separator tube (gold top) for subsequent determinations. ??Contact the Clinical Chemistry Laboratory if there are any questions. Chloride 102 98 - 107 mmol/L [facility] Carbon Dioxide 20(L) 22 - 31 mmol/L [facility] Anion Gap 15 5 - 15 mmol/L [facility] Calcium 8.8 8.5 - 10.5 mg/dL [facility] Est Glomerular Filtration Rate 9(L) >=60 [facility] Comment: [...] the following links into your internet browser. [email or web address] Blood specimen (specimen) 09/18/2015 2:31 AM EDT 09/18/2015 2:50 AM EDT Narrative Resulting Agency Comment Spec In Lab Larry Larkin MD CHEMISTRY ORDERABLES [facility] [place] [address] * (ABNORMAL) Basic Metabolic Panel (non-fasting) (09/17/2015 9:55 PM EDT) Glucose 190 65 - 199 mg/dL [facility] Comment:Diabetes: >=200 mg/d L plus symptoms Blood Urea Nitrogen 67(H) 10 - 20 mg/dL [facility] Creatinine 6.73(H) 0.80 - 1.50 mg/dL [facility] Comment: Please note that the pediatric reference intervals supplied above were not validated at [facility]. Results from pediatric patients should be interpreted in conjunction to the patient's age, height and muscle mass. Sodium 137 135 - 145 mmol/L [facility] Potassium 5.0 3.5 - 5.0 mmol/L [facility] Comment: Please note: ??Patients with WBC >100,000 may have falsely elevated Potassium levels. ??For accurate Potassium quantification in these patients send serum separator tube (gold top) for subsequent determinations. ??Contact the Clinical Chemistry Laboratory if there are any questions. Chloride 101 98 - 107 mmol/L [facility] Carbon Dioxide 19(L) 22 - 31 mmol/L [facility] Anion Gap 17(H) 5 - 15 mmol/L [facility] Calcium 8.5 8.5 - 10.5 mg/dL [facility] Est Glomerular Filtration Rate 8(L) >=60 [facility] Comment: [...] the following links into your internet browser. [email or web address] Blood specimen (specimen) 09/17/2015 9:55 PM EDT 09/17/2015 9:59 PM EDT Narrative Resulting Agency Comment Spec In Lab Larry Larkin MD CHEMISTRY ORDERABLES [facility] [place] [address] * Renal Transplant Left (09/17/2015 12:37 PM EDT) Anatomical Region Laterality Modality Abdomen Left Ultrasound 09/17/2015 1:09 PM EDT Narrative 09/17/2015 1:39 PM EDT Transplant ? (Signed Final 09/17/2015 01:38 pm) Patient Info ID #: ? [id number] ? : [birth year] (65 yrs) Name: ? ETHEL BOLDEN ? Visit Date:09/17/2015 01:09 pm Performed By Performed By: ? Jessee Espinal RDMS Attending: ?Jewel GERBER, Preeti Sanford Associate: ?Alan GERBER, Victor Manuel Sanford Referred By: ?LARRY LARKIN MD Service(s) Provided ??URTPL - Ultrasound Renal Transplant - Left - [id number] Indications ??POD#1 s/p renal transplant on Left; [...] Final 09/17/2015 01:38pm) Patient Info ID #: [id number] : [birth year] (65 yrs) Name: ETHEL BOLDEN Visit Date:09/17/2015 01:09 pm Performed By Performed By: Jesese Espinal RDMS Attending: Preeti Holloway MD Associate: Victor Manuel Phillips MD Referred By: LARRY LARKIN MD Service(s) Provided URTPL - Ultrasound Renal Transplant - Left - [id number] Indications POD#1 s/p renal transplant on Left; [...] 11:31 AM EDT) Neutrophil % 88.3 % [facility] Neutrophil Absolute 14.45(H) 1.50 - 6.30 x10(3)/mc L [facility] Lymph % 3.1 % [facility] Lymphocytes Abs 0.5(L) 1.0 - 3.6 x10(3)/mc L [facility] Monocyte % 8.3 % [facility] Monocyte Abs 1.4(H) 0.2 - 1.0 x10(3)/[facility] Eos % 0.0 % [facility] Eosinophils Abs 0.0 0.0 - 0.5 x10(3)/[facility] Basophil % 0.1 % [facility] Baso Absolute 0.0 0.0 - 0.2 x10(3)/[facility] Immature Gran % 0.20 % [facility] Comment: Immature granulocytes(IG's)percentage and absolute count will include metamyelocytes, myelocytes, and promyelocytes. Blood smears from CBCs yielding IG's will be scanned manually for concordance. If this scan disagrees with the automated IG or if promyelocytes are noted, a manual differential will be performed. Immature Gran Absolute 0.03 0.00 - 0.05 x10(3)/[facility] Blood specimen (specimen) 09/17/2015 11:31 AM EDT 09/17/2015 11:38 AM EDT Narrative Resulting Agency Comment Spec In Lab Larry Larkin MD HEMATOLOGY ORDERABLE S [facility] [place] [address] * (ABNORMAL) Hemogram (09/17/2015 11:31 AM EDT) White Blood Cell 16.4(H) 4.0 - 10.0 x10(3)/[facility] Red Blood Cell 3.60(L) 4.63 - 6.08 x10(6)/[facility] Hemoglobin 11.1(L) 13.7 - 17.5 gm/dL [facility] Hematocrit 33.9(L) 40.0 - 51.0 % [facility] Mean Cell Volume 94.2(H) 79.0 - 92.0 fL [facility] Mean Cell Hemoglobin 30.8 25.6 - 32.2 pg [facility] Mean Cell Hemoglobin Concentration 32.7 32.0 - 36.5 gm/dL [facility] Platelet 276 145 - 370 x10(3)/mc L [facility] RDW Standard Deviation 49.3(H) 35.0 - 46.0 fL [facility] RDW coefficient of variation 14.3 10.9 - 14.4 % [facility] Mean Platelet Volume 9.4 9.0 - 12.0 fL [facility] Blood specimen (specimen) 09/17/2015 11:31 AM EDT 09/17/2015 11:38 AM EDT Narrative Resulting Agency Comment Spec In Lab Larry Larkin MD HEMATOLOGY ORDERABLE S [facility] [place] [id number] * HIV Quant (09/17/2015 11:31 AM EDT) [...] Administration. Gibson Good, Ph.D. Director, Molecular Pathology [facility] Comment: [VERIFIED DATE]09.21.15 Verified By:Xiomy Gupta (Electronic Signature) Blood specimen (specimen) 09/17/2015 11:31 AM EDT 09/20/2015 2:24 PM EDT Narrative Resulting Agency Comment Spec In Lab Que Amaro MD HEMATOLOGY ORD ERABLES Performing Organization Address [facility] Co de Phone Number [facility] [place] [address] * HBV Quant (09/17/2015 11:31 AM EDT) Hepatitis B DNA, quantitative, PCR Result: <20 [...] This assay is being performed in the [facility] Molecular Pathology Laboratory. Gibson Good, Ph.D. Director, Molecular Pathology [facility] Blood specimen (specimen) 09/17/2015 11:31 AM EDT 09/21/2015 9:44 AM EDT Narrative Resulting Agency Comment Spec In Lab Que Amaro MD CHEMISTRY ORDBhargav JENNINGS Performing Organization Address [facility] de Phone Number [facility] [place] [address] * (ABNORMAL) Potassium (09/17/2015 11:31 AM EDT) Pathologist [facility] [place] Potassium 5.6(H) 3.5 - 5.0 mmol/L [facility] [...] Larkin MD CHEMISTRY ORDERABLES Performing Organization Address [facility]/ZIP Co de Phone Number [facility] [place] [address] * Blood culture (09/17/2015 10:36 AM EDT) Pathologist [facility] Blood Culture No growth at 5 days. [facility] Blood specimen (specimen) ARTERIAL LINE / Unknown 09/17/2015 10:36 AM EDT 09/17/2015 10:46 AM EDT Narrative Resulting Agency Comment Spec In Lab Larry Larkin MD MICROBIOLOGY - BLOOD ORDERABLES Performing Organization Address [facility] Co de Phone Number [facility] [place] [address] * Hep C Viral RNA NS3 Genotype (09/17/2015 10:17 AM EDT) [facility] HCV RNA NS3 Genotype See Note [facility] Comment: Please see scanned report in Chart Review under the Non-DH Laboratory Heading. Test performed by R[facility] [place], [address] [place] [address] Blood specimen (specimen) 09/17/2015 10:17 AM EDT 09/17/2015 11:42 AM EDT Narrative Resulting Agency Comment Spec In Lab Larry Larkin MD CHEMISTRY ORDERABLES Performing Organization Address [facility] Co de Phone Number [facility] [place] [address] * Hepatitis C RNA, quantitative, PCR (09/17/2015 10:17 AM EDT) Pathologist [facility] HCV Viral Load 323,972 IU/mL [facility] HCV Viral Load Result: [id number] IU/mL Indication for Study: Hepatitis C Infection Analysis: A quantitiative real time reverse transcriptase PCR assay was performed on extracted viral RNA for the purpose of quantification. Sample: plasma (1 mL minimum volume) Method: Kirsten Nik TaqMAN 48 HCV Linear Range: 15 IU/mL - 100,000,000IU/mL (95% CI) Note: This assay is being performed in the [facility] Molecular Pathology Laboratory. Gibson Good, Ph.D. Director, Molecular Pathology [facility] Comment: [VERIFIED DATE]09.21.15 Verified By:Xiomy Gupta (Electronic Signature) Blood specimen (specimen) 09/17/2015 10:17 AM EDT 09/20/2015 2:34 PM EDT Narrative Resulting Agency Comment Spec In Lab Larry Larkin MD MOLECULAR ORDERABLES [facility] [place] [address] * Blood culture (09/17/2015 10:17 AM EDT) Blood Culture No growth at 5 days. [facility] Blood specimen (specimen) ANTECUBITAL REGION STRUCTURE / Unknown 09/17/2015 10:17 AM EDT 09/17/2015 10:46 AM EDT Narrative Resulting Agency Comment Spec In Lab Larry Larkin MD MICROBIOLOGY - BLOOD ORDERABLES Performing Organization Address City/[facility]/ZIP Co de Phone Number [facility] [place] [address] * (ABNORMAL) Phosphorus (09/17/2015 9:17 AM EDT) Phosphorus 6.9(H) 2.5 - 4.5 mg/dL [facility] Blood specimen (specimen) Venous Draw / Unknown 09/17/2015 9:17 AM EDT 09/17/2015 9:41 AM EDT Narrative Resulting Agency Comment Spec In Lab Larry Larkin MD CHEMISTRY ORDERABLES Performing Organization Address City/[facility]/ZIP Co de Phone Number [facility] [place] [address] * Magnesium (09/17/2015 9:17 AM EDT) Magnesium 0.75 0.69 - 1.07 mmol/L [facility] Blood specimen (specimen) Venous Draw / Unknown 09/17/2015 9:17 AM EDT 09/17/2015 9:41 AM EDT Narrative Resulting Agency Comment Spec In Lab Larry Larkin MD CHEMISTRY ORDERABLES Performing Organization Address City/State/[facility] Co de Phone Number [facility] [place] [address] * (ABNORMAL) Differential, Automated (09/17/2015 9:17 AM EDT) [facility] Neutrophil % 90.3 % [facility] Neutrophil Absolute 13.67(H) 1.50 - 6.30 x10(3)/mc L [facility] Lymph % 3.7 % [facility] Lymphocytes Abs 0.6(L) 1.0 - 3.6 x10(3)/ L [facility] Monocyte % 5.6 % [facility] Monocyte Abs 0.8 0.2 - 1.0 x10(3)/ L [facility] Eos % 0.0 % [facility] Eosinophils Abs 0.0 0.0 - 0.5 x10(3)/ L [facility] Basophil % 0.1 % [facility] Baso Absolute 0.0 0.0 - 0.2 x10(3)/mc L [facility] Immature Gran % 0.30 % [facility] Comment: Immature granulocytes(IG's)percentage and absolute count will include metamyelocytes, myelocytes, and promyelocytes. Blood smears from CBCs yielding IG's will be scanned manually for concordance. If this scan disagrees with the automated IG or if promyelocytes are noted, a manual differential will be performed. Immature Gran Absolute 0.04 0.00 - 0.05 x10(3)/mc L [facility] Blood specimen (specimen) 09/17/2015 9:17 AM EDT 09/17/2015 9:41 AM EDT Narrative Resulting Agency Comment Spec In Lab Larry Larkin MD HEMATOLOGY ORDERABLE S [facility] [place] [address] * (ABNORMAL) Hemogram (09/17/2015 9:17 AM EDT) White Blood Cell 15.1(H) 4.0 - 10.0 x10(3)/mc L [facility] Red Blood Cell 3.58(L) 4.63 - 6.08 x10(6)/mc L [facility] Hemoglobin 11.3(L) 13.7 - 17.5 gm/dL [facility] Hematocrit 33.3(L) 40.0 - 51.0 % [facility] Mean Cell Volume 93.0(H) 79.0 - 92.0 fL [facility] Mean Cell Hemoglobin 31.6 25.6 - 32.2 pg [facility] Mean Cell Hemoglobin Concentration 33.9 32.0 - 36.5 gm/dL [facility] Platelet 271 145 - 370 x10(3)/mc L [facility] RDW Standard Deviation 49.5(H) 35.0 - 46.0 fL [facility] RDW coefficient of variation 14.5(H) 10.9 - 14.4 % [facility] Mean Platelet Volume 9.5 9.0 - 12.0 fL [facility] Blood specimen (specimen) 09/17/2015 9:17 AM EDT 09/17/2015 9:41 AM EDT Narrative Resulting Agency Comment Spec In Lab Larry Larkin MD HEMATOLOGY ORDERABLE S Performing Organization Address City/[facility]/ZIP Co de Phone Number [facility] [place] [address] * (ABNORMAL) Comprehensive metabolic panel (non-fasting) (09/17/2015 9:17 AM EDT) Glucose 157 65 - 199 mg/dL [facility] Comment:Diabetes: >=200 mg/d L plus symptoms Blood Urea Nitrogen 59(H) 10 - 20 mg/dL [facility] Creatinine 6.96(H) 0.80 - 1.50 mg/dL [facility] Comment: Please note that the pediatric reference intervals supplied above were not validated at [facility]. Results from pediatric patients should be interpreted in conjunction to the patient's age, height and muscle mass. Sodium 137 135 - 145 mmol/L [facility] Potassium Not Perf 3.5 - 5.0 mmol/L [facility] Comment: Unable to quantitate due to sample hemolysis. ??Sample redraw suggested. Called by:hp _, Read back by: rafy hooker, Date/Time:09/17/15 10:48. Please note: ??Patients with WBC >100,000 may have falsely elevated Potassium levels. ??For accurate Potassium quantification in these patients send serum separator tube (gold top) for subsequent determinations. ??Contact the Clinical Chemistry Laboratory if there are any questions. Chloride 100 98 - 107 mmol/L [facility] Carbon Dioxide 16(L) 22 - 31 mmol/L [facility] Anion Gap 21(H) 5 - 15 mmol/L [facility] Calcium 8.6 8.5 - 10.5 mg/dL [facility] Protein, Total 6.7 6.1 - 8.0 gm/dL [facility] Albumin 3.5 3.2 - 5.2 gm/dL [facility] Aspartate Aminotransferase Not Perf 0 - 39 unit/L [facility] Comment: Unable to quantitate due to sample hemolysis. ??Sample redraw suggested. Called by:hp _, Read back by: rafy hooker, Date/Time:09/17/15 10:48. Alanine Aminotransferase 18 0 - 55 unit/L [facility] Alkaline Phosphatase 57 40 - 120 unit/L [facility] Bilirubin, Total 0.7 0.2 - 1.3 mg/dL [facility] Bilirubin, Direct Not Perf 0.0 - 0.3 mg/dL [facility] Comment: Unable to quantitate due to sample hemolysis. ??Sample redraw suggested. Called by:nasra _, Read back by: rafy hooker, Date/Time:09/17/15 10:48. Est Glomerular Filtration Rate 8(L) >=60 [facility] Comment: This estimated [...] the following links into your internet browser. [email or web address] Blood specimen (specimen) 09/17/2015 9:17 AM EDT 09/17/2015 9:41 AM EDT Narrative Resulting Agency Comment Spec In Lab Larry Larkin MD CHEMISTRY ORDERABLES [facility] [place] [address] * Vancomycin, trough (09/17/2015 9:17 AM EDT) Pathologist [facility] Vancomycin, Trough 24.6 mg/L [facility] Comment: Therapeutic range for complicated [...] Larkin MD CHEMISTRY ORDERABLES Performing Organization Address City/[facility]/ZIP Co de Phone Number [facility] [place] [address] * POCT Glucose (09/17/2015 8:58 AM EDT) Glucose, POC 143 65 - 199 mg/dL [facility] Comment: Supplemental ranges: <140 mg/dL before meals <180 mg/dL all other times of the day Blood specimen (specimen) 09/17/2015 8:58 AM EDT 09/17/2015 8:58 AM EDT Larry Larkin MD POINT OF CARE TEST O RDERABLES Performing Organization Address City/[facility] Co de Phone Number [facility] [place] [address] * (ABNORMAL) Differential, Automated (09/17/2015 3:30 AM EDT) [facility] Neutrophil % 92.5 % [facility] Neutrophil Absolute 12.16(H) 1.50 - 6.30 x10(3)/mc L [facility] Lymph % 3.6 % [facility] Lymphocytes Abs 0.5(L) 1.0 - 3.6 x10(3)/mc L [facility] Monocyte % 3.5 % [facility] Monocyte Abs 0.5 0.2 - 1.0 x10(3)/mc L [facility] Eos % 0.1 % [facility] Eosinophils Abs 0.0 0.0 - 0.5 x10(3)/mc L [facility] Basophil % 0.1 % [facility] Baso Absolute 0.0 0.0 - 0.2 x10(3)/mc L [facility] Immature Gran % 0.20 % [facility] Comment: Immature granulocytes(IG's)percentage and absolute count will include metamyelocytes, myelocytes, and promyelocytes. Blood smears from CBCs yielding IG's will be scanned manually for concordance. If this scan disagrees with the automated IG or if promyelocytes are noted, a manual differential will be performed. Immature Gran Absolute 0.02 0.00 - 0.05 x10(3)/mc L [facility] Blood specimen (specimen) 09/17/2015 3:30 AM EDT 09/17/2015 3:36 AM EDT Narrative Resulting Agency Comment Spec In Lab Larry Larkin MD HEMATOLOGY ORDERABLE S [facility] [place] [address] * (ABNORMAL) Hemogram (09/17/2015 3:30 AM EDT) White Blood Cell 13.1(H) 4.0 - 10.0 x10(3)/mc L [facility] Red Blood Cell 3.56(L) 4.63 - 6.08 x10(6)/mc L [facility] Hemoglobin 11.2(L) 13.7 - 17.5 gm/dL [facility] Hematocrit 32.8(L) 40.0 - 51.0 % [facility] Mean Cell Volume 92.1(H) 79.0 - 92.0 fL [facility] Mean Cell Hemoglobin 31.5 25.6 - 32.2 pg [facility] Mean Cell Hemoglobin Concentration 34.1 32.0 - 36.5 gm/dL [facility] Platelet 223 145 - 370 x10(3)/mc L [facility] RDW Standard Deviation 48.0(H) 35.0 - 46.0 fL [facility] RDW coefficient of variation 14.3 10.9 - 14.4 % [facility] Mean Platelet Volume 9.4 9.0 - 12.0 fL [facility] Blood specimen (specimen) 09/17/2015 3:30 AM EDT 09/17/2015 3:36 AM EDT Narrative Resulting Agency Comment Spec In Lab Larry Larkin MD HEMATOLOGY ORDERABLE S Performing Organization Address [facility] Co de Phone Number [facility] [place] [address] * (ABNORMAL) Phosphorus (09/17/2015 3:30 AM EDT) Phosphorus 6.7(H) 2.5 - 4.5 mg/dL [facility] Blood specimen (specimen) 09/17/2015 3:30 AM EDT 09/17/2015 3:36 AM EDT Narrative Resulting Agency Comment Spec In Lab Larry Larkin MD CHEMISTRY ORDERABLES Performing Organization Address [facility] de Phone Number [facility] [place] [address] * Magnesium (09/17/2015 3:30 AM EDT) Magnesium 0.73 0.69 - 1.07 mmol/L [facility] Blood specimen (specimen) 09/17/2015 3:30 AM EDT 09/17/2015 3:36 AM EDT Narrative Resulting Agency Comment Spec In Lab Larry Larkin MD CHEMISTRY ORDERABLES Performing Organization Address [facility] Co de Phone Number [facility] [place] [address] * (ABNORMAL) Comprehensive metabolic panel (non-fasting) (09/17/2015 3:30 AM EDT) Glucose 160 65 - 199 mg/dL [facility] Comment:Diabetes: >=200 mg/d L plus symptoms Blood Urea Nitrogen 52(H) 10 - 20 mg/dL [facility] Creatinine 6.94(H) 0.80 - 1.50 mg/dL [facility] Comment: Please note that the pediatric reference intervals supplied above were not validated at [facility]. Results from pediatric patients should be interpreted in conjunction to the patient's age, height and muscle mass. Sodium 137 135 - 145 mmol/L [facility] Potassium 5.7(H) 3.5 - 5.0 mmol/L [facility] Comment: Please note: ??Patients with WBC >100,000 may have falsely elevated Potassium levels. ??For accurate Potassium quantification in these patients send serum separator tube (gold top) for subsequent determinations. ??Contact the Clinical Chemistry Laboratory if there are any questions. Chloride 101 98 - 107 mmol/L [facility] Carbon Dioxide 20(L) 22 - 31 mmol/L [facility] Anion Gap 16(H) 5 - 15 mmol/L [facility] Calcium 8.3(L) 8.5 - 10.5 mg/dL [facility] Protein, Total 6.4 6.1 - 8.0 gm/dL [facility] Albumin 3.3 3.2 - 5.2 gm/dL [facility] Aspartate Aminotransferase 20 0 - 39 unit/L [facility] Alanine Aminotransferase 16 0 - 55 unit/L [facility] Alkaline Phosphatase 55 40 - 120 unit/L [facility] Bilirubin, Total 0.6 0.2 - 1.3 mg/dL [facility] Bilirubin, Direct 0.2 0.0 - 0.3 mg/dL [facility] Est Glomerular Filtration Rate 8(L) >=60 [facility] Comment: This estimated [...] the following links into your internet browser. [email or web address] Blood specimen (specimen) 09/17/2015 3:30 AM EDT 09/17/2015 3:36 AM EDT Narrative Resulting Agency Comment Spec In Lab Larry Larkin MD CHEMISTRY ORDERABLES [facility] [place] [address] * (ABNORMAL) Differential, Automated (09/16/2015 9:50 PM EDT) Neutrophil % 92.3 % [facility] Neutrophil Absolute 12.45(H) 1.50 - 6.30 x10(3)/mc L [facility] Lymph % 3.6 % [facility] Lymphocytes Abs 0.5(L) 1.0 - 3.6 x10(3)/ L [facility] Monocyte % 3.6 % [facility] Monocyte Abs 0.5 0.2 - 1.0 x10(3)/mc L [facility] Eos % 0.1 % [facility] Eosinophils Abs 0.0 0.0 - 0.5 x10(3)/ L [facility] Basophil % 0.1 % [facility] Baso Absolute 0.0 0.0 - 0.2 x10(3)/mc L [facility] Immature Gran % 0.30 % [facility] Comment: Immature granulocytes(IG's)percentage and absolute count will include metamyelocytes, myelocytes, and promyelocytes. Blood smears from CBCs yielding IG's will be scanned manually for concordance. If this scan disagrees with the automated IG or if promyelocytes are noted, a manual differential will be performed. Immature Gran Absolute 0.04 0.00 - 0.05 x10(3)/mc L [facility] Blood specimen (specimen) 09/16/2015 9:50 PM EDT 09/16/2015 10:05 PM EDT Narrative Resulting Agency Comment Spec In Lab Larry Larkin MD HEMATOLOGY ORDERABLE S [facility] [place] [address] * (ABNORMAL) Hemogram (09/16/2015 9:50 PM EDT) White Blood Cell 13.5(H) 4.0 - 10.0 x10(3)/mc L [facility] Red Blood Cell 3.70(L) 4.63 - 6.08 x10(6)/mc L [facility] Hemoglobin 11.7(L) 13.7 - 17.5 gm/dL [facility] Hematocrit 33.9(L) 40.0 - 51.0 % [facility] Mean Cell Volume 91.6 79.0 - 92.0 fL [facility] Mean Cell Hemoglobin 31.6 25.6 - 32.2 pg [facility] Mean Cell Hemoglobin Concentration 34.5 32.0 - 36.5 gm/dL [facility] Platelet 227 145 - 370 x10(3)/mc L [facility] RDW Standard Deviation 47.7(H) 35.0 - 46.0 fL [facility] RDW coefficient of variation 14.3 10.9 - 14.4 % [facility] Mean Platelet Volume 9.5 9.0 - 12.0 fL [facility] Blood specimen (specimen) 09/16/2015 9:50 PM EDT 09/16/2015 10:05 PM EDT Narrative Resulting Agency Comment Spec In Lab Larry Larkin MD HEMATOLOGY ORDERABLE S [facility] [place] [address] * (ABNORMAL) Phosphorus (09/16/2015 9:50 PM EDT) Phosphorus 6.2(H) 2.5 - 4.5 mg/dL [facility] Blood specimen (specimen) 09/16/2015 9:50 PM EDT 09/16/2015 10:05 PM EDT Narrative Resulting Agency Comment Spec In Lab Larry Larkin MD CHEMISTRY ORDERABLES Performing Organization Address [facility] Co de Phone Number [facility] [place] [address] * Magnesium (09/16/2015 9:50 PM EDT) Magnesium 0.75 0.69 - 1.07 mmol/L [facility] Blood specimen (specimen) 09/16/2015 9:50 PM EDT 09/16/2015 10:05 PM EDT Narrative Resulting Agency Comment Spec In Lab Larry Larkin MD CHEMISTRY ORDERABLES Performing Organization Address [facility] Co de Phone Number [facility] [place] [address] * (ABNORMAL) Comprehensive metabolic panel (non-fasting) (09/16/2015 9:50 PM EDT) Glucose 158 65 - 199 mg/dL [facility] Comment:Diabetes: >=200 mg/d L plus symptoms Blood Urea Nitrogen 48(H) 10 - 20 mg/dL [facility] Creatinine 6.94(H) 0.80 - 1.50 mg/dL [facility] Comment: Please note that the pediatric reference intervals supplied above were not validated at [facility]. Results from pediatric patients should be interpreted in conjunction to the patient's age, height and muscle mass. Sodium 138 135 - 145 mmol/L [facility] Potassium 5.3(H) 3.5 - 5.0 mmol/L [facility] Comment: Please note: ??Patients with WBC >100,000 may have falsely elevated Potassium levels. ??For accurate Potassium quantification in these patients send serum separator tube (gold top) for subsequent determinations. ??Contact the Clinical Chemistry Laboratory if there are any questions. Chloride 100 98 - 107 mmol/L [facility] Carbon Dioxide 22 22 - 31 mmol/L [facility] Anion Gap 16(H) 5 - 15 mmol/L [facility] Calcium 8.5 8.5 - 10.5 mg/dL [facility] Protein, Total 6.6 6.1 - 8.0 gm/dL [facility] Albumin 3.4 3.2 - 5.2 gm/dL [facility] Aspartate Aminotransferase 19 0 - 39 unit/L [facility] Alanine Aminotransferase 17 0 - 55 unit/L [facility] Alkaline Phosphatase 59 40 - 120 unit/L [facility] Bilirubin, Total 0.7 0.2 - 1.3 mg/dL [facility] Bilirubin, Direct 0.2 0.0 - 0.3 mg/dL [facility] Est Glomerular Filtration Rate 8(L) >=60 [facility] Comment: This estimated [...] the following links into your internet browser. [email or web address] Blood specimen (specimen) 09/16/2015 9:50 PM EDT 09/16/2015 10:05 PM EDT Narrative Resulting Agency Comment Spec In Lab Larry Larkin MD CHEMISTRY ORDERABLES [facility] [place] [address] * POCT Glucose (09/16/2015 5:36 PM EDT) Glucose, POC 135 65 - 199 mg/dL [facility] Comment: Supplemental ranges: <140 mg/dL before meals <180 mg/dL all other times of the day Blood specimen (specimen) 09/16/2015 5:36 PM EDT 09/16/2015 5:36 PM EDT Larry Larkin MD POINT OF CARE TEST O RDERABLES [facility] [place] [address] * (ABNORMAL) Differential, Automated (09/16/2015 3:29 PM EDT) Neutrophil % 88.2 % [facility] Neutrophil Absolute 6.47(H) 1.50 - 6.30 x10(3)/ L [facility] Lymph % 8.3 % [facility] Lymphocytes Abs 0.6(L) 1.0 - 3.6 x10(3)/ L [facility] Monocyte % 1.5 % [facility] Monocyte Abs 0.1(L) 0.2 - 1.0 x10(3)/mc L [facility] Eos % 1.6 % [facility] Eosinophils Abs 0.1 0.0 - 0.5 x10(3)/ L [facility] Basophil % 0.3 % [facility] Baso Absolute 0.0 0.0 - 0.2 x10(3)/ L [facility] Immature Gran % 0.10 % [facility] Comment: Immature granulocytes(IG's)percentage and absolute count will include metamyelocytes, myelocytes, and promyelocytes. Blood smears from CBCs yielding IG's will be scanned manually for concordance. If this scan disagrees with the automated IG or if promyelocytes are noted, a manual differential will be performed. Immature Gran Absolute 0.01 0.00 - 0.05 x10(3)/mc L [facility] Blood specimen (specimen) 09/16/2015 3:29 PM EDT 09/16/2015 3:29 PM EDT Narrative Resulting Agency Comment Spec In Lab Larry Larkin MD HEMATOLOGY ORDERABLE S [facility] [place] [address] * (ABNORMAL) Hemogram (09/16/2015 3:29 PM EDT) White Blood Cell 7.3 4.0 - 10.0 x10(3)/mc L [facility] Red Blood Cell 3.65(L) 4.63 - 6.08 x10(6)/mc L [facility] Hemoglobin 11.5(L) 13.7 - 17.5 gm/dL [facility] Hematocrit 33.3(L) 40.0 - 51.0 % [facility] Mean Cell Volume 91.2 79.0 - 92.0 fL [facility] Mean Cell Hemoglobin 31.5 25.6 - 32.2 pg [facility] Mean Cell Hemoglobin Concentration 34.5 32.0 - 36.5 gm/dL [facility] Platelet 211 145 - 370 x10(3)/mc L [facility] RDW Standard Deviation 46.8(H) 35.0 - 46.0 fL [facility] RDW coefficient of variation 14.1 10.9 - 14.4 % [facility] Mean Platelet Volume 9.3 9.0 - 12.0 fL [facility] Blood specimen (specimen) 09/16/2015 3:29 PM EDT 09/16/2015 3:29 PM EDT Narrative Resulting Agency Comment Spec In Lab Larry Larkin MD HEMATOLOGY ORDERABLE S [facility] [place] [address] * APTT (09/16/2015 3:29 PM EDT) Partial Thromboplastin Time 29 25 - 35 sec [facility] Comment: The recommended therapeutic range for full dose, unfractionated heparin at [facility] is 80 ? 114 seconds. The use of the anti-Xa (heparin) level rather than the PTT is recommended for monitoring anticoagulation intensity in critically ill patients receiving unfractionated heparin by continuous IV infusion. Blood specimen (specimen) 09/16/2015 3:29 PM EDT 09/16/2015 3:29 PM EDT Narrative Resulting Agency Comment Spec In Lab Larry Larkin MD HEMATOLOGY ORDERABLE S Performing Organization Address [facility] Co de Phone Number [facility] [place] [address] * Prothrombin Time (09/16/2015 3:29 PM EDT) Prothrombin Time 14.3 12.0 - 15.0 sec [facility] Comment: An INR <2.0 indicates [...] International Normalization Ratio 1.1 0.9 - 1.1 [facility] Blood specimen (specimen) 09/16/2015 3:29 PM EDT 09/16/2015 3:29 PM EDT Narrative Resulting Agency Comment Spec In Lab Larry Larkin MD HEMATOLOGY ORDERABLE S Performing Organization Address [facility] Co de Phone Number [facility] [place] [address] * (ABNORMAL) Comprehensive metabolic panel (non-fasting) (09/16/2015 3:29 PM EDT) Glucose 148 65 - 199 mg/dL [facility] Comment:Diabetes: >=200 mg/d L plus symptoms Blood Urea Nitrogen 45(H) 10 - 20 mg/dL [facility] Creatinine 6.99(H) 0.80 - 1.50 mg/dL [facility] Comment: Please note that the pediatric reference intervals supplied above were not validated at [facility]. Results from pediatric patients should be interpreted in conjunction to the patient's age, height and muscle mass. Sodium 136 135 - 145 mmol/L [facility] Potassium 5.0 3.5 - 5.0 mmol/L [facility] Comment: Please note: ??Patients with WBC >100,000 may have falsely elevated Potassium levels. ??For accurate Potassium quantification in these patients send serum separator tube (gold top) for subsequent determinations. ??Contact the Clinical Chemistry Laboratory if there are any questions. Chloride 99 98 - 107 mmol/L [facility] Carbon Dioxide 25 22 - 31 mmol/L [facility] Anion Gap 12 5 - 15 mmol/L [facility] Calcium 8.3(L) 8.5 - 10.5 mg/dL [facility] Comment:result rechecked-DANITZA Protein, Total 6.7 6.1 - 8.0 gm/dL [facility] Albumin 3.3 3.2 - 5.2 gm/dL [facility] Aspartate Aminotransferase 19 0 - 39 unit/L [facility] Alanine Aminotransferase 18 0 - 55 unit/L [facility] Alkaline Phosphatase 59 40 - 120 unit/L [facility] Bilirubin, Total 0.9 0.2 - 1.3 mg/dL [facility] Bilirubin, Direct 0.2 0.0 - 0.3 mg/dL [facility] Est Glomerular Filtration Rate 8(L) >=60 [facility] Comment: This estimated [...] the following links into your internet browser. [email or web address] Blood specimen (specimen) 09/16/2015 3:29 PM EDT 09/16/2015 3:29 PM EDT Narrative Resulting Agency Comment Spec In Lab Larry Larkin MD CHEMISTRY ORDERABLES Performing Organization Address [facility] Co de Phone Number [facility] [address] * Magnesium (09/16/2015 3:29 PM EDT) Pathologist [facility] [place] Magnesium 0.75 0.69 - 1.07 mmol/L [facility] Blood specimen (specimen) 09/16/2015 3:29 PM EDT 09/16/2015 3:29 PM EDT Narrative Resulting Agency Comment Spec In Lab Larry Larkin MD CHEMISTRY ORDERABLES Performing Organization Address [facility] Co de Phone Number [facility] [place] [address] * POCT Glucose (09/16/2015 3:12 PM EDT) [facility] Glucose, POC 125 65 - 199 mg/dL [facility] Comment: Supplemental ranges: <140 mg/dL before meals <180 mg/dL all other times of the day Blood specimen (specimen) 09/16/2015 3:12 PM EDT 09/16/2015 3:12 PM EDT Larry Larkin MD POINT OF CARE TEST O RDERABLES Performing Organization Address [facility] Co de Phone Number [facility] [place] [address] * (ABNORMAL) BLOOD GAS 2 ARTERIAL (09/16/2015 2:02 PM EDT) pH, Arterial 7.37 7.35 - 7.45 [facility] PCO2, Arterial 43 35 - 45 mmHg [facility] PO2, Arterial 204(H) 85 - 104 mmHg [facility] Bicarbonate, Arterial 24.1 20.0 - 26.0 mmol/L [facility] Base Excess, Arterial -1.1 -3.0 - 3.0 mmol/L [facility] Hgb Blood Gas 11.4(L) 13.7 - 17.5 gm/dL [facility] Oxyhemoglobin, Arterial 98.8(H) 94.0 - 97.0 % [facility] Carboxyhemoglob in, Arterial 0.2 % [facility] Comment: Nonsmokers: 0.5-1.5% COHB Smokers: Variable, but usually less than 10% Toxic: 20-30% COHB Lethal: Greater than 60% COHB Methemoglobin, Arterial 0.3 <=1.5 % [facility] Na Whole Blood 135 135 - 145 mmol/L [facility] K Whole Blood 4.8 3.5 - 5.0 mmol/L [facility] Comment: Please note: Patients with WBC >100,000 may have falsely elevated Potassium levels. Contact the Clinical Chemistry Laboratory if there are any questions. ICa Whole Blood 1.08(L) 1.15 - 1.33 mmol/L [facility] Comment: Note: ??Total bilirubin higher than 20 mg/dL may lead to falsely low ionized calcium. CL Whole Blood 102 98 - 107 mmol/L [facility] Gluc Whole Bld 135 65 - 199 mg/dL [facility] Comment:Diabetes: >=200 mg/d L plus symptoms. Blood specimen (specimen) 09/16/2015 2:02 PM EDT 09/16/2015 2:02 PM EDT Larry Larkin MD POINT OF CARE TEST O RDERABLES [facility] [place] [address] * CMV Antibody, IgG (09/16/2015 10:28 AM EDT) Pathologist [facility] [place] CMV IgG Neg Neg [facility] Blood specimen (specimen) 09/16/2015 10:28 AM EDT 09/17/2015 7:28 AM EDT Narrative Resulting Agency Comment Spec In Lab Larry Larkin MD IMMUNOLOGY ORDERABLE S [facility] [place] [address] * EKG 12 Lead (09/16/2015 10:10 AM EDT) Ventricular rate 60 BPM MUSE SYSTEM Atrial Rate 60 BPM MUSE SYSTEM P-R Interval 184 ms MUSE SYSTEM QRS Duration 110 ms MUSE SYSTEM Q-T Interval 476 ms MUSE SYSTEM QTC Calculated (Bezet) 476 ms MUSE SYSTEM Calculated P Zachary -14 degrees MUSE SYSTEM Calculated R Zachary -44 degrees MUSE SYSTEM Calculated T Zachary -26 degrees MUSE SYSTEM INTERPRETATION Sinus rhythm [...] 10:08 AM EDT) Neutrophil % 65.2 % [facility] Neutrophil Absolute 4.72 1.50 - 6.30 x10(3)/[facility] Lymph % 20.3 % [facility] Lymphocytes Abs 1.5 1.0 - 3.6 x10(3)/[facility] Monocyte % 8.1 % [facility] Monocyte Abs 0.6 0.2 - 1.0 x10(3)/[facility] Eos % 5.4 % [facility] Eosinophils Abs 0.4 0.0 - 0.5 x10(3)/[facility] Basophil % 0.7 % [facility] Baso Absolute 0.0 0.0 - 0.2 x10(3)/[facility] Immature Gran % 0.30 % [facility] Comment: Immature granulocytes(IG's)percentage and absolute count will include metamyelocytes, myelocytes, and promyelocytes. Blood smears from CBCs yielding IG's will be scanned manually for concordance. If this scan disagrees with the automated IG or if promyelocytes are noted, a manual differential will be performed. Immature Gran Absolute 0.02 0.00 - 0.05 x10(3)/[facility] Blood specimen (specimen) 09/16/2015 10:08 AM EDT 09/16/2015 10:23 AM EDT Narrative Resulting Agency Comment Spec In Lab Larry Larkin MD HEMATOLOGY ORDERABLE S [facility] [place] [address] * (ABNORMAL) Hemogram (09/16/2015 10:08 AM EDT) White Blood Cell 7.2 4.0 - 10.0 x10(3)/mc L [facility] Red Blood Cell 3.83(L) 4.63 - 6.08 x10(6)/mc L [facility] Hemoglobin 12.1(L) 13.7 - 17.5 gm/dL [facility] Hematocrit 35.8(L) 40.0 - 51.0 % [facility] Mean Cell Volume 93.5(H) 79.0 - 92.0 fL [facility] Mean Cell Hemoglobin 31.6 25.6 - 32.2 pg [facility] Mean Cell Hemoglobin Concentration 33.8 32.0 - 36.5 gm/dL [facility] Platelet 231 145 - 370 x10(3)/mc L [facility] RDW Standard Deviation 47.3(H) 35.0 - 46.0 fL [facility] RDW coefficient of variation 13.9 10.9 - 14.4 % [facility] Mean Platelet Volume 9.4 9.0 - 12.0 fL [facility] Blood specimen (specimen) 09/16/2015 10:08 AM EDT 09/16/2015 10:23 AM EDT Narrative Resulting Agency Comment Spec In Lab Larry Larkin MD HEMATOLOGY ORDERABLE S [facility] [place] [address] * Antibody screen (09/16/2015 10:08 AM EDT) Ab Screen Interp Negative [facility] Expires at [id number] on: 09/19/2015 [facility] Blood specimen (specimen) 09/16/2015 10:08 AM EDT 09/16/2015 10:17 AM EDT Narrative Resulting Agency Comment Spec In Lab Larry Larkin MD BLOOD BANK LAB ORDER IGNACIO [facility] [place] [address] * ABO/Rh Typing (09/16/2015 10:08 AM EDT) ABORH Type AB Pos [facility] Blood specimen (specimen) 09/16/2015 10:08 AM EDT 09/16/2015 10:17 AM EDT Narrative Resulting Agency Comment Spec In Lab Larry Larkin MD BLOOD BANK LAB ORDER IGNACIO [facility] [place] [address] * APTT (09/16/2015 10:08 AM EDT) Partial Thromboplastin Time 28 25 - 35 sec [facility] Comment: The recommended therapeutic range for full dose, unfractionated heparin at [facility] is 80 ? 114 seconds. The use of the anti-Xa (heparin) level rather than the PTT is recommended for monitoring anticoagulation intensity in critically ill patients receiving unfractionated heparin by continuous IV infusion. Blood specimen (specimen) 09/16/2015 10:08 AM EDT 09/16/2015 10:23 AM EDT Narrative Resulting Agency Comment Spec In Lab Larry Larkin MD HEMATOLOGY ORDERABLE S Performing Organization Address [facility] Co de Phone Number [facility] [place] [address] * Prothrombin Time (09/16/2015 10:08 AM EDT) Prothrombin Time 14.0 12.0 - 15.0 sec [facility] Comment: An INR <2.0 indicates [...] International Normalization Ratio 1.1 0.9 - 1.1 [facility] Blood specimen (specimen) 09/16/2015 10:08 AM EDT 09/16/2015 10:23 AM EDT Narrative Resulting Agency Comment Spec In Lab Larry Larkin MD HEMATOLOGY ORDERABLE S Performing Organization Address [facility] Co de Phone Number [facility] [place] [address] * (ABNORMAL) Phosphorus (09/16/2015 10:08 AM EDT) Phosphorus 5.0(H) 2.5 - 4.5 mg/dL [facility] Blood specimen (specimen) 09/16/2015 10:08 AM EDT 09/16/2015 10:23 AM EDT Narrative Resulting Agency Comment Spec In Lab Larry Larkin MD CHEMISTRY ORDERABLES Performing Organization Address City/[facility] Co de Phone Number [facility] [place] [address] * Magnesium (09/16/2015 10:08 AM EDT) Pathologist [facility] [place] Magnesium 0.83 0.69 - 1.07 mmol/L [facility] Blood specimen (specimen) 09/16/2015 10:08 AM EDT 09/16/2015 10:23 AM EDT Narrative Resulting Agency Comment Spec In Lab Larry Larkin MD CHEMISTRY ORDERABLES Performing Organization Address [facility] Co de Phone Number [facility] [place] [address] * (ABNORMAL) Comprehensive metabolic panel (non-fasting) (09/16/2015 10:08 AM EDT) Pathologist [facility] [place] Glucose 127 65 - 199 mg/dL [facility] Comment:Diabetes: >=200 mg/d L plus symptoms Blood Urea Nitrogen 44(H) 10 - 20 mg/dL [facility] Creatinine 7.50(H) 0.80 - 1.50 mg/dL [facility] Comment: Please note that the pediatric reference intervals supplied above were not validated at [facility]. Results from pediatric patients should be interpreted in conjunction to the patient's age, height and muscle mass. Sodium 139 135 - 145 mmol/L [facility] Potassium 4.9 3.5 - 5.0 mmol/L [facility] Comment: Please note: ??Patients with WBC >100,000 may have falsely elevated Potassium levels. ??For accurate Potassium quantification in these patients send serum separator tube (gold top) for subsequent determinations. ??Contact the Clinical Chemistry Laboratory if there are any questions. Chloride 96(L) 98 - 107 mmol/L [facility] Carbon Dioxide 28 22 - 31 mmol/L [facility] Anion Gap 15 5 - 15 mmol/L [facility] Calcium 9.4 8.5 - 10.5 mg/dL [facility] Protein, Total 7.4 6.1 - 8.0 gm/dL [facility] Albumin 3.8 3.2 - 5.2 gm/dL [facility] Aspartate Aminotransferase 15 0 - 39 unit/L [facility] Alanine Aminotransferase 18 0 - 55 unit/L [facility] Alkaline Phosphatase 65 40 - 120 unit/L [facility] Bilirubin, Total 0.9 0.2 - 1.3 mg/dL [facility] Bilirubin, Direct 0.1 0.0 - 0.3 mg/dL [facility] Est Glomerular Filtration Rate 7(L) >=60 [facility] Comment: This estimated [...] the following links into your internet browser. [email or web address] Blood specimen (specimen) 09/16/2015 10:08 AM EDT 09/16/2015 10:23 AM EDT Narrative Resulting Agency Comment Spec In Lab Larry Larkin MD CHEMISTRY ORDERABLES [facility] [place] [address] documented in this encounter Visit Diagnoses Not [...] attending). 0842 (New Bag - Provider: Pauline Miles, JADEN) bisacodyl (DULCOLAX) EC tablet 10 mg (CANCELED) 10 mg, Oral, 2 TIMES DAILY, First dose on Thu09/16/15 at 2100, Until Discontinued, DO NOT CRUSH OR OPEN, Routine 0844 (Given - Provider: Sonu Lara, JADEN)212 (Given - Provider: Keyana Moy RN) 0825 (Given - Provider: Tamela Mckeon, JADEN)205 (Given - Provider: Margarette Mota, JADEN) 0830 (Given - Provider: Pauline Miles, JADEN) BUpivacaine-EPINEPHrine 0.25 %-1:200,000 injection 20 mL (COMPLETED) 20 mL (50 mg), Infiltration, ONCE, 1 dose, On Thu09/19/15 at 1345, For use in Interventional Radiology (IR) only for procedural sedation with direct provider supervision and verbal order., Angio/IR (Intra-Procedure), Routine 1430 (Given - Provider: Therese Carpio RN - Comment: Given by GOVERNMENT SERVICES PROFESSIONAL.) carvedilol (COREG) tablet 12.5 mg (CANCELED) 12.5 mg, Oral, DAILY WITH DINNER, First dose on 09/18/15 at 1700, Until Discontinued, Routine 1735 (Given - Provider: Pauline Miles RN) 1647 (Given - Provider: Tamela Mckeon, JADEN) [...] Mota RN) 0629 (Given - Provider: Margarette Mota RN)1400 (Not Given - Provider: Pauline Miles RN [...] Sonu Lara RN)2116 (Given - Provider: Keyana Moy, JADEN) 0824 (Given - Provider: Tamela Mckeon RN)1130 [...] Therese Carpio RN - Comment: Given by GOVERNMENT SERVICES PROFESSIONAL.) magnesium oxide (MAG-OX) tablet 400 mg (CANCELED) 400 mg, Oral, 2 TIMES DAILY, First dose on Thu09/18/15 at 0900, Until Discontinued, Routine 912 (Given - Provider: Sonu Lara, RN)2117 (Given - Provider: Keyana Moy RN) 825 (Given - Provider: Tamela Mckeon RN)2056 (Given - Provider: Margarette Mota RN) 08 (Given - Provider: Pauline Miles RN) methylPREDNISolone sodium succinate (PF) (solu-MEDROL) 40 mg/mL injection 40 mg (COMPLETED)(Linked Group 2) 40 mg, Intravenous, DAILY, 1 dose, First dose on Thu09/20/15 at 0900, POD #4. If receiving thymoglobulin, give 30 minutes prior to administration of thymoglobulin. 08 (Given - Provider: Pauline Miles RN) [...] 30 minutes prior to administration of thymoglobulin. 0844 (Given - Provider: Sonu Lara, JADEN) mycophenolate (CELLCEPT) capsule 750 mg (CANCELED)(Linked Group 3) 750 mg, Oral, 2 TIMES DAILY, First dose on Thu09/17/15 at 0900, Until Discontinued, DO NOT CRUSH OR OPEN, Routine 0844 (Given - Provider: Sonu Lara, JADEN)2118 (Given - Provider: Keyana Moy RN) 08 (Given - Provider: Tamela Mckeon RN)2055 (Given [...] Lara RN)1742 (Given - Provider: Pauline Miles RN)212 (Given - Provider: Keyana Moy RN) 0827 (Given - Provider: Tamela Mckeon RN)1300 (Not Given - Provider: Tamela Mckeon RN - Reason: Transfer to a Procedural area)1647 (Given - Provider: Tamela Mckeon RN)2056 (Given - Provider: Margarette Mota, JADEN) 0831 (Given - Provider: Pauline Miles RN)1205 [...] Moy RN) 0826 (Given - Provider: Tamela Mckeon, JADEN)205 (Given [...] (CANCELED) 50 mL/hr, Intravenous, CONTINUOUS, Starting on Tu09/18/15 at 1030, Until Thu09/19/15 at 0714 1044 [...] Mckeon, JADEN)1319 (See Alternative - Provider: Tamela Mckeon RN)2001 [...] Routine 1012 (Given - Provider: Sonu Lara, JADEN) 0845 (Given - Provider: Tamela Mckeon, RN)1319 (Given - Provider: Tamela Mckeon, RN - Comment: on way to IR)2001 (Given - Provider: Margarette Mota, JADEN)2346 (Given - Provider: Margarette Mota, JADEN) 0358 (Given - Provider: Margarette Mota, JADEN)0839 (Given - Provider: Pauline Miles, JADEN)1241 (See Alternative - Provider: Pauline Miles, RN) [...] Oral, DAILY, 1 dose, First dose on 09/16/15 at 1745, DO NOT CRUSH OR OPEN, [...] Routine documented in this encounter Care Teams Supervisor Gear Repair Relationship Specialty Start Date End Date Albania Nunez DO [address] [place] [address] PCP - General 09/03/12 03/17/22 Ruchi Valles RN Nurse Clinic Transplant Surgery 07/30/15 documented as of this encounter
--- OUTSIDE RECORDS SUMMARY | 2024-04-04 14:17 | XMS_ITS | Encounter Summary ---
Author Organization [facility] [place] [address] Care Team Providers Care Supervisor Waterproofing Name Role Phone Urbano Denis DO Primary Care Provider [phone] Encounter Details Date Type Department Care Team (Late st Contact Info) Description 07/17/2015 4:00 PM EST Office Visit Solid [place] [address] Larry Larkin MD [facility] [place] [address] ESRD (end stage renal disease) Social History [...] proceeding withtransplantation. 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 Problem [...] EXTREMITY performed by Que Amaro MD at [facility] MAIN OR FAMILY HISTORY: No family history [...] PM EDT Office Visit Cardiology at [address] [address] Jay Urban MD [facility] [place] [address] 04/15/2024 10:00 AM EDT Hospital Encounter Non-Invasive Cardiology [place] [address] Arrived documented as of this encounter Visit Diagnoses Diagnosis ESRD (end stage renal disease) End stage renal disease documented in this encounter Care Teams Supervisor Waterproofing Relationship Specialty Start Date End Date Urbano Denis DO [address] [place] [address] PCP - General 09/03/12 03/17/22 documented as of this encounter
--- OUTSIDE RECORDS SUMMARY | 2024-04-04 14:17 | XMS_ITS | Encounter Summary ---
Author Organization [facility] Address [facility] [place] [address] Care Team Providers Care Residue Furnace Operator Name Role Phone Urbano Denis DO Primary Care Provider [phone] Reason for Referral * Diagnostic Test (Routine) - Closed Specialty Diagnoses / Procedures Referred By Humberto flor Referred To Contact Radiology Diagnoses ESRD on dialysis Procedures IR line/tube removal recovery room- [facility] Jaz Mayorga MD [facility] [place] [address] [place] [address] Referral ID Status Reason Start Date Expiration Date V isits Requested Visits Authorized [id number] Closed Specialty Service Requested 07/18/2015 07/17/2016 1 1 Encounter Details Date Type Department Care Team (Late st Contact Info) Description 07/18/2015 Orders Only Nephrology [place] [address] Jaz Mayorga MD [facility] [place] [address] ESRD on dialysis Social History [...] PM EDT Office Visit Cardiology at [address] [address] Jay Urban MD [facility] [place] [address] 04/15/2024 10:00 AM EDT Hospital Encounter Non-Invasive Cardiology Lab [facility] [address] Arrived documented as of this encounter Results * IR line/tube removal recovery room- [facility] (07/24/2015 1:55 PM EST) Anatomical Region Laterality [...] tunneled HD catheter which was placed in [place]. Technique: ??The patient was positioned supine on [...] from angio recovery. Fellow: Gibson Avelar MD(pager #[phone]) Attending: Ghassan Lange, Dr. Ferrell, was present for the procedure. Jomar Franco MD IMG IR ORDERABLES documented in this encounter Visit Diagnoses Diagnosis ESRD on dialysis End stage renal disease ESRD on dialysis End stage renal disease documented in this encounter Care Teams Residue Furnace Operator Relationship Specialty Start Date End Date Urbano Denis DO [address] [place] [address] PCP - General 09/03/12 03/17/22 documented as of this encounter
--- OUTSIDE RECORDS SUMMARY | 2024-04-04 14:18 | XMS_ITS | Encounter Summary ---
Author Organization [facility] [place] [address] Care Team Providers Care Cmv Driver Name Role Phone Urbano Denis DO [...] Expiration Date Visits Re quested Visits Authorized [id number] Closed 1 1 Encounter Details Date Type Department Care Team (Late st Contact Info) Description 05/09/2015 12:58 PM EST - 05/09/2015 3:35 PM EST Surgery [place] [phone] Jennifer Amaro MD [facility] [place] [address] AV FISTULA CREATION, DIRECT HEMODIALYSIS, ANY SITE, [...] concerning symptoms The number for questions is [phone] before 5 PM weekdays and [phone] after 5 PM and on weekends (ask for the General Surgery resident student admissions clerk). Activity level: Do not lift more than [...] Del Castillo MD General Surgery, PGY2 P# [phone] documented in this encounter H&P Notes * [...] Amaro MD - 05/09/2015 4:01 PM EST [facility] [place] Note Patient Name: Cody Bolden : [id number] MR#: [id number] Case Date: 05/09/2015 Surgeon: Surgeon(s) and Role: [...] PM EDT Office Visit Cardiology at [address] [phone] Jay Urban MD [facility] [place] [address] 04/15/2024 10:00 AM EDT Hospital Encounter Non-Invasive Cardiology Lab [facility] [place] [address] Arrived documented as of this [...] Glucose, POC 98 65 - 199 mg/dL [facility] Comment: Supplemental ranges: <140 mg/dL before meals <180 mg/dL all other times of the day Blood specimen (specimen) 05/09/2015 1:30 PM EST 05/09/2015 1:30 PM EST Jennifer Amaro MD POINT OF CARE TEST ORDERABLES [facility] * Potassium (05/09/2015 12:45 PM EST) Pathologist [facility] Potassium 4.2 3.5 - 5.0 mmol/L [facility] Comment: Please note: ??Patients with WBC >100,000 may have falsely elevated Potassium levels. ??For accurate Potassium quantification in these patients send serum separator tube (gold top) for subsequent determinations. ??Contact the Clinical Chemistry Laboratory if there are any questions. Blood specimen (specimen) 05/09/2015 12:45 PM EST 05/09/2015 12:49 PM EST Narrative Resulting Agency Comment Spec In Lab Jennifer Amaro MD CHEMISTRY ROCHELLE JENN[facility] Organization Address City/State/[facility] [place] Phone Number [facility] documented in this encounter Visit Diagnoses Not [...] RN) documented in this encounter Care Teams Cmv Driver Relationship Specialty Start Date End Date Urabno Denis DO [address] [place] [address] [address] [place] [address] PCP - General 09/03/12 03/17/22 documented as of this encounter
--- OUTSIDE RECORDS SUMMARY | 2024-04-04 14:18 | XMS_ITS | Encounter Summary ---
Author Organization [facility] [place] [address] Care Team Providers Care Plastering Supervisor Name Role Phone Urbano Denis DO Primary Care Provider [phone] Encounter Details Date Type Department Care Team (Late st Contact Info) Description 05/23/2015 Notes Only Solid [place] [address] Anabella Bright Social History Tobacco Use Types [...] Bright - 05/23/2015 12:38 PM EST Transplant Apparatus Repair Mechanic Note: Verification of prescription drug coverage - [employer] part D, sponsored by patient's fci plan. Monthly medication costs will vary greatly [...] PM EDT Office Visit Cardiology at [address] [address] Jay Urban MD [facility] [place] [address] 04/15/2024 10:00 AM EDT Hospital Encounter Non-Invasive [place] [address] Arrived documented as of this encounter Visit Diagnoses Not on filedocumented in this encounter Care Teams Plastering Supervisor Relationship Specialty Start Date End Date Urbano Denis DO [facility] [address] [facility] [address] [place] [address] PCP - General 09/03/12 03/17/22 documented as of this encounter
--- OUTSIDE RECORDS SUMMARY | 2024-04-04 14:18 | XMS_ITS | Encounter Summary ---
Author Organization [facility] [place] [address] Care Team Providers Care Sde Name Role Phone AdeelUrbano toscano Primary Care Provider Encounter Details Date Type Department Care Team (Late st Contact Info) Description 07/16/2015 External Results [place] [address] Social History Tobacco Use Types [...] PM EDT Office Visit Cardiology at [address] [phone] Jay Urban MD [facility] [place] [place] [address] 04/15/2024 10:00 AM EDT Hospital Encounter Non-Invasive [place] [address] Arrived documented as of this encounter Procedures Procedure Name Priority Date/Time Associated Diagnosis Comments NON DH EXTERNAL RADIOLOGY EXAM Routine 04/04/2015 GI SCAN Routine 03/16/2009 documented in this encounter Results * Non DH EXTERNAL radiology exam (04/04/2015) Anatomical Region Laterality Modality Radiographic Yumiko ging Historical Provider MD MURPHY MRI ORDERABLE S * Scan Doc: GI (03/16/2009) Historical Provider MEDIA MGR SCAN EX T ORDR/RSLT documented in this encounter Visit Diagnoses Not on filedocumented in this encounter Care Teams Sde Relationship Specialty Start Date End Date Urbano Denis DO [address] [place] [address] PCP - General 09/03/12 03/17/22 documented as of this encounter
--- OUTSIDE RECORDS SUMMARY | 2024-04-04 14:18 | XMS_ITS | Encounter Summary ---
Author Organization Formerly [facility] Address [facility] [address] Care Team Providers Care Pet Care Associate Name Role Phone Urbano Denis DO Primary Care Provider [phone] Encounter Details Date Type Department Care Team (Latest Contact Info) Description 06/07/2014 9:31 AM EST - 06/07/2014 11:59 PM [facility] Hospital Encounter [place] [address] CLINIC, Urbano Milian MD [facility] [place] [address] Hypertension; Proteinuria; DM type 2 (diabetes mellitus, [...] % Mouthwash 0 01/08/2014 03/16/2015 FLUZONE QUAD 2225-4847, PF, 60 mcg (15 mcg x 4)/0.5 mL Syringe 0 04/07/2014 01/04/2015 ONE TOUCH DELICA LANCETS 30 gauge Misc 0 04/28/2014 01/28/2016 [...] PM EDT Office Visit Cardiology at [address] [phone] Jay Urban MD [facility] [place] [address] 04/15/2024 10:00 AM EDT Hospital Encounter Non-[place] [address] Arrived documented as of this encounter Procedures [...] ? am) Patient Info ID #: ? [id number] ?: [birth year] (63 yrs) Name: ? ETHEL AKINS ?Visit Date: 06/07/2014 10:10 am Performed By Performed By: ?Isrrael NOYOLAMS, ??Nuris Attending: ? Alec GERBER, Guy Vargas Referred By: ? URBANO LOYA MD Service(s) Provided ??URETRO - Retroperitoneal Complete - [id number] ? [id number] Indications ??63 year old male with DM, [...] 06/07/2014 10:29 am) Patient Info ID #: [id number] : [birth year] (63 yrs) Name: ETHEL AKINS Visit Date: 06/07/2014 10:10 am Performed By Performed By: Nuris Arcos RDMS Attending: Guy Michael MD Referred By: URBANO LOYA MD Service(s) Provided URETRO - Retroperitoneal Complete - [id number] Indications 63 year old male with DM, [...] (moderate) documented in this encounter Care Teams Pet Care Associate Relationship Specialty Start Date End Date Urbano Denis DO [address] [place] [address] PCP - General 09/03/12 03/17/22 documented as of this encounter
--- OUTSIDE RECORDS SUMMARY | 2024-04-04 14:18 | XMS_ITS | Encounter Summary ---
Author Organization [facility] [place] [address] Care Team Providers Care Property Underwriter Name Role Phone Urbano Denis DO Primary Care Provider [phone] Encounter Details Date Type Department Care Team (Late st Contact Info) Description 01/09/2015 Telephone [place] [phone] Kandace Houston RN Social History Tobacco Use [...] TDC placement. Plan for first dialysis treatment: [facility] Mon-Wed-Fri at 1430 (await start date) Access: TDC placed 01/09/15 Transportation Plans: Insurance clearance on: 01/09/15 Plan: Called [facility] today-no answer Will call tomorrow AM to get start date for dialysis. documented in this encounter Plan of Treatment Upcoming Encounters Date Type Department Care Team (Late st Contact Info) Description 04/08/2024 1:40 PM EDT Office Visit Cardiology at [address] [address] Jay Urban MD [facility] [place] [address] 04/15/2024 10:00 AM EDT Hospital Encounter Non-Invasive [place] [address] Arrived documented as of this encounter Visit Diagnoses Not on filedocumented in this encounter Care Teams Property Underwriter Relationship Specialty Start Date End Date Urbano Denis DO [address] [place] [address] [address] [facility] [address] [place] [address] PCP - General 09/03/12 03/17/22 documented as of this encounter
--- OUTSIDE RECORDS SUMMARY | 2024-04-04 14:18 | XMS_ITS | Encounter Summary ---
Author Organization [facility] [place] [address] Care Team Providers Care Claims Manager Name Role Phone Urbano Denis DO Primary Care Provider Encounter Details Date Type Department Care Team (Latest Contact Info) Description 01/09/2015 6:33 AM EDT - 01/09/2015 11:59 PM EDT Hospital [place] [address] Urbano Loya MD [facility] [place] [address] Type 2 diabetes mellitus with stage 5 [...] numbers on file. PCP URBANO DENIS DO [phone] Date/Time of call: January 10, 2015/7:20 AM [...] of : 1950 AGE 64 y.o. Address: [address] [place] [phone] (home) Mobile: No relevant phone numbers on [...] % Mouthwash 01/08/14 PROVIDER, HISTORICAL FLUZONE QUAD [id number], PF, 60 mcg (15 mcg x 4)/0.5 mL Syringe 04/07/14 PROVIDER, HISTORICAL ONE TOUCH DELICA LANCETS 30 gauge Misc 04/28/14 PROVIDER, HISTORICAL doxazosin (CARDURA) 4 mg Tablet Take 1 tablet by mouth nightly. 05/22/14 rUbano Loya MD omeprazole (PRILOSEC) 20 mg capsule [...] this patient that they require a local intermodal truck driver to be present and in the building to drive them home after this procedure. In the absence of a local intermodal truck driver, IR will not be able [...] NOTE Procedure: Tunneled HD catheter placement. ACC#: [id number] Indication for Procedure: 64 y.o. male with Stage 5 CKD who presents for placement of a tunneled pheresis catheter for dialysis. Per Dr. Loya 01/04/15, Spoke with Dr. Lewis from nephrology at [facility]. He has been seeing [Yuan] for a few months and his Cr has been steadily rising to the mid 5s. Mr. Akins is developing some AM nausea and Dr. Lewis is concerned that he is becoming uremic. He would like me to arrange dialysis catheter placement here and dialysis initiation at [facility]. Procedure events and findings: After obtaining [...] PM EDT Office Visit Cardiology at [address] [phone] Jay Urban MD [facility] [place] [address] 04/15/2024 10:00 AM EDT Hospital Encounter Non-[place] [address] Arrived documented as of this encounter Procedures [...] NOTE Procedure: Tunneled HD catheter placement. ACC#: [id number] Indication for Procedure: 64 y.o. male with Stage 5 CKD who presents for placement of a tunneled pheresis catheter for dialysis. Per Dr. Loya 01/04/15, Spoke with Dr. Lewis from nephrology at [facility]. He has been seeing [Yuan] for a few months and his Cr has been steadily rising to the mid 5s. Mr. Akins is developing some AM nausea and Dr. Lewis is concerned that he is becoming uremic. He would like me to arrange dialysis catheter placement here and dialysis initiation at [facility]. Procedure events and findings: After obtaining [...] NOTE Procedure: Tunneled HD catheter placement. ACC#: [id number] Indication for Procedure: 64 y.o. male with Stage 5 CKD who presents for placement of a tunneled pheresis catheter for dialysis. Per Dr. Loya 01/04/15, Spoke with Dr. Lewis from nephrology at [facility]. Vinods been seeing [Yuan] for a few months and his Cr has been steadily risingto the mid 5s. Mr. Akins is developing some AM nausea and Dr. Lewis isconcerned that he is becoming uremic. He would like me to arrange dialysiscatheter placement here and dialysis initiation at [facility]. Procedure events and findings: After obtaining [...] Thu01/09/15 at 0711, Until Thu01/09/15 at 0833, Anxiety, per unit protocol, For [...] mLs documented in this encounter Care Teams Claims Manager Relationship Specialty Start Date End Date Urbano Denis DO [address] [place] [address] PCP - General 09/03/12 03/17/22 documented as of this encounter
--- OUTSIDE RECORDS SUMMARY | 2024-04-04 14:18 | XMS_ITS | Encounter Summary ---
Author Organization [facility] [place] [address] Care Team Providers Care Mess Cook Name Role Phone Urbano Denis DO Primary Care Provider Encounter Details Date Type Department Care Team (Late st Contact Info) Description 03/16/2015 9:00 AM EDT Office Visit [place] [address] Jennifer Amaro MD [facility] [place] [address] ESRD (end stage renal disease) Discharge Disposition: [...] cirrhosis. He is closely followed by a executive vice president and chief financial officer at [facility] where he is being evaluated for kidney [...] etc) reports sent to my office from [facility]. I would like to confirm that his liver disease is not more advanced than he suggests in the clinic. He is making arragements to have the records faxed to our office. 2. I will confirm that a perioperative Plavix hold (7 days pre, ~ 2 days post) will not be an issuewith his neurologist (Dr. Shannan Plaza at [facility]). 3. Obtain 12-lead EKG results from [facility]. Patient arranging to have records faxed to [...] PM EDT Office Visit Cardiology at [address] [address] Jay Urban MD [facility] [place] [address] 04/15/2024 10:00 AM EDT Hospital Encounter Non-[place] [address] Arrived documented as of this encounter Visit Diagnoses Diagnosis ESRD (end stage renal disease) End stage renal disease documented in this encounter Care Teams Mess Cook Relationship Specialty Start Date End Date Urbano Denis DO [facility] [address] [place] [address] PCP - General 09/03/12 03/17/22 documented as of this encounter
--- OUTSIDE RECORDS SUMMARY | 2024-04-04 14:18 | XMS_ITS | Encounter Summary ---
Author Organization [facility] [place] [address] Care Team Providers Care Bicycle Repair Technician Name Role Phone Adeel Urbano KIRBY Primary Care Provider [phone] Encounter Details Date Type Department Care Team (Late st Contact Info) Description 05/14/2015 Abstract [place] [address] [place] Kessler Social History Tobacco [...] PM EDT Office Visit Cardiology at [address] [address] Jay Urban MD [facility] [place] [address] 04/15/2024 10:00 AM EDT Hospital Encounter Non-[place] [address] Arrived documented as of this encounter Visit Diagnoses Not on filedocumented in this encounter Care Teams Bicycle Repair Technician Relationship Specialty Start Date End Date Urbano Denis DO [address] [place] [address] PCP - General 09/03/12 03/17/22 documented as of this encounter
--- OUTSIDE RECORDS SUMMARY | 2024-04-04 14:18 | XMS_ITS | Encounter Summary ---
Author Organization [facility] [place] [address] Care Team Providers Care Pick Up Worker Name Role Phone Urbano Denis DO Primary Care Provider Encounter Details Date Type Department Care Team (Late st Contact Info) Description 06/07/2014 8:30 AM EST Ancillary Appointment [place] [address] Mac Hurley, RVT Hypertension; Proteinuria; DM type [...] PM EDT Office Visit Cardiology at [address] [address] Jay Urban MD [facility] [place] [address] 04/15/2024 10:00 AM EDT Hospital Encounter Non-[place]vasive [place] [address] Arrived documented as of this [...] Text Report Department: Vascular Surgery Lab Patient: [id number] (ETHEL AKINS) CPT Code: 38147 ICD-9: 401.9; 272.0 Referring Physician: URBANO LOYA [...] (moderate) documented in this encounter Care Teams Pick Up Worker Relationship Specialty Start Date End Date Urbano Denis DO [address] [place] [address] PCP - General 09/03/12 03/17/22 documented as of this encounter
--- OUTSIDE RECORDS SUMMARY | 2024-04-04 14:18 | XMS_ITS | Encounter Summary ---
Author Organization [facility] [place] [address] Care Team Providers Care Assistant Professor Of Theater Name Role Phone AdeelUbrano boland Primary Care Provider Encounter Details Date Type Department Care Team (Late st Contact Info) Description 01/16/2015 Orders Only [place] [phone] Franko Larkin MD [facility] [place] [address] ESRD (end stage renal disease) Social History [...] PM EDT Office Visit Cardiology at [address] [phone] Jay Urban MD [facility] [place] [address] 04/15/2024 10:00 AM EDT Hospital Encounter Non-[place] [address] Arrived documented as of this encounter Results * First Time Hemodialysis access (03/15/2015 7:37 AM EDT) VB Text Report Department: Vascular Surgery Lab Patient: [id number] (ETHEL AKINS) CPT Code: G0365 ICD-9: 585.6 Referring Physician: [...] Franco MD VASCULAR ORDERABLES Performing Organization Address City/State/[facility] Co de Phone Number VASCUBASE documented in this encounter Visit Diagnoses Diagnosis ESRD (end stage renal disease) End stage renal disease documented in this encounter Care Teams Assistant Professor Of Theater Relationship Specialty Start Date End Date Urbano Denis DO [address] [place] [address] PCP - General 09/03/12 03/17/22 documented as of this encounter
--- OUTSIDE RECORDS SUMMARY | 2024-04-04 14:18 | XMS_ITS | Encounter Summary ---
Author Organization [facility] [place] [address] Care Team Providers Care Security Controls Assessor Name Role Phone AdeelUrbano toscano Primary Care Provider Encounter Details Date Type Department Care Team (Late st Contact Info) Description 07/05/2015 Orders Only [place] [address] Ellen Foote RN Pre-transplant evaluation [...] PM EDT Office Visit Cardiology at [address] [phone] Jay Urban MD [facility] [place] [address] 04/15/2024 10:00 AM EDT Hospital Encounter Non-[place] [address] Arrived documented as of this encounter Results * Cerebrovascular Duplex, Bilateral (07/17/2015 1:58 PM EST) VB Text Report Department: Vascular Surgery Lab Patient: [id number] (ETHEL AKINS) CPT: 17319 ICD10: N18.6;Z01.818 Referring Physician: MADHU PURI ?? Indications: hx of stroke/pre-op evaluation [...] of Report VASCUBASE 07/17/2015 1:58 PM EST Madhu Puri MD VASCULAR ORDERABL ES VASCUBASE * ALEXANDER, legs, multiple levels (07/17/2015 1:58 PM EST) VB Text Report Department: Vascular Surgery Lab Patient: [id number] (ETHEL AKINS) CPT: 15407 ICD10: Z01.818;N18.6 Referring Physician: MADHU PURI ?? Indications: pre-op evaluation for kidney [...] of Report VASCUBASE 07/17/2015 1:58 PM EST Madhu Puri MD VASCULAR ORDERABL ES Performing Organization Address [facility] de Phone Number VASCUBASE * Varicella zoster Antibody, IgG (07/17/2015 1:44 PM EST) Varicella Zoster Antibody IgG Pos CERNER MILLENNIUM Blood specimen (specimen) 07/17/2015 1:44 PM EST 07/18/2015 7:56 AM EST Narrative Resulting Agency Comment Spec In Lab Madhu Puri MD IMMUNOLOGY ORDERA BLES Performing Organization Address [facility] Co de Phone Number CERNER MILLENNIUM * Toxoplasma Antibody, IgM (07/17/2015 1:44 PM EST) Toxoplasma Antibody IgM Neg Neg CERNER MILLENNIUM Blood specimen (specimen) 07/17/2015 1:44 PM EST 07/18/2015 7:56 AM EST Narrative Resulting Agency Comment Spec In Lab Madhu Puri MD IMMUNOLOGY ORDERA BLECathy Performing Organization Address City/[facility] Co de Phone Number CERNER DANELLEENNIUM * Toxoplasma Antibody, IgG (07/17/2015 1:44 PM EST) Toxoplasma Antibody IgG Neg Neg CERNER MILLENNIUM Blood specimen (specimen) 07/17/2015 1:44 PM EST 07/18/2015 7:56 AM EST Narrative Resulting Agency Comment Spec In Lab Madhu Puri MD IMMUNOLOGY ORDERA BLECathy Performing Organization Address [facility] Co de Phone Number CERNER DANELLEENNIUM * (ABNORMAL) HSV 1 and 2 IgG Antibodies (07/17/2015 1:44 PM EST) HSV Type 1 Ab, IgG Pos(A) Neg CERNER MILLENNIUM HSV Type 2 Ab, IgG Equivocal( A) Neg CERNER MILLENNIUM Blood specimen (specimen) 07/17/2015 1:44 PM EST 07/18/2015 7:56 AM EST Narrative Resulting Agency Comment Spec In Lab Madhu Puri MD IMMUNOLOGY ORDERA BLES Performing Organization Address [facility] Phone Number CERORSALINA MCCLENDONENNIUM * (ABNORMAL) Brennan-Schreiber Virus Antibodies (07/17/2015 1:44 [...] Resulting Agency Comment Spec In Lab Madhu Puri MD IMMUNOLOGY ORDERA [place] Performing Organization Address City/State/[facility] Co va Phone Number [facility] documented in this encounter Visit Diagnoses Diagnosis Pre-transplant evaluation for kidney transplant Other specified pre-operative examination End stage renal disease documented in this encounter Care Teams Security Controls Assessor Relationship Specialty Start Date End Date Urbano Denis DO [facility] [address] [place] [address] PCP - General 09/03/12 03/17/22 documented as of this encounter
--- OUTSIDE RECORDS SUMMARY | 2024-04-04 14:18 | XMS_ITS | Encounter Summary ---
Author Organization [facility] [place] [address] Care Team Providers Care Factorer Name Role Phone AdeelUrbano toscano Primary Care Provider Encounter Details Date Type Department Care Team (Late st Contact Info) Description 05/15/2015 External Results [place] [phone] Tulio Marcelo MD [facility] [place] [address] Social History Tobacco Use Types Packs/Day Years [...] PM EDT Office Visit Cardiology at [address] [phone] Jay Urban MD [facility] [place] [address] 04/15/2024 10:00 AM EDT Hospital Encounter Non-Invasive [place] [address] Arrived documented as of this encounter Procedures [...] on filedocumented in this encounter Care Teams Factorer Relationship Specialty Start Date End Date Urbano Denis DO [address] [place] [address] PCP - General 09/03/12 03/17/22 documented as of this encounter
--- OUTSIDE RECORDS SUMMARY | 2024-04-04 14:18 | XMS_ITS | Encounter Summary ---
Author Organization [facility] [place] [address] Care Team Providers Care News Technical Director Name Role Phone Adeel Urbano KIRBY Primary Care Provider [phone] Encounter Details Date Type Department Care Team (Late st Contact Info) Description 01/15/2015 Orders Only [place] [phone] Que Amaro MD [facility] [place] [address] Social History Tobacco Use Types Packs/Day Years [...] PM EDT Office Visit Cardiology at [address] [phone] Jay Urban MD [facility] [place] [address] 04/15/2024 10:00 AM EDT Hospital Encounter Non-Invasive [place] [address] Arrived documented as of this encounter Visit Diagnoses Not on filedocumented in this encounter Care Teams News Technical Director Relationship Specialty Start Date End Date Urbano Denis DO [address] [place] [address] PCP - General 09/03/12 03/17/22 documented as of this encounter
--- OUTSIDE RECORDS SUMMARY | 2024-04-04 14:18 | XMS_ITS | Encounter Summary ---
[place] [address] Care Team Providers Care Tile Layer Supervisor Name Role Phone Urbano Denis DO Primary Care Provider [phone] Reason for Referral * Diagnostic Test (Routine) - Closed Specialty Diagnoses / Procedures Referred By Humberto flor Referred To Contact Diagnoses ESRD (end stage renal disease) Procedures Echo pharm stress test (DSE) Shin Sebastian MD [facility] [place] [address] [facility] [place] [address] Referral ID Status Reason Start Date Expiration Date V isits Requested Visits Authorized [id number] Closed Specialty Service Requested 05/29/2015 05/28/2016 1 1 Reason for Visit * Consultation (Routine) - Closed Specialty Diagnoses / Procedures Referred By Contpaula flor Referred To Contact Cardiology Procedures Patient is undergoing considration for renal transplant. Please see scanned documents (Stress test, Cath etc.). Patient needs formal evaluation with Dr. Brown or delegate for clearance and further testing as determined. Byron Brown MD [facility] [place] [address] Referral ID Status Reason Start Date Expiration Date Visits Re quested Visits Authorized [id number] Closed 05/14/2015 05/13/2016 1 1 Encounter Details Date Type Department Care Team (Latest Contact Info) Description 05/29/2015 10:00 AM EST Office Visit Cardiology at [address] [place] [address] Shin Sebastian MD [facility] [place] [address] ESRD (end stage renal disease); Pre-operative cardiovascular [...] PM EDT Office Visit Cardiology at [address] [phone] Jay Urban MD [facility] [address] 04/15/2024 10:00 AM EDT Hospital Encounter Non-[place] [address] Arrived documented as of this [...] P ? (Age): 1950(64y) Med Rec#: ? [id number] ?Sex: ?M ? Site Loc: ? [facility] ?Ht / Wt: ??177(cm)/102(kg) Pt. Loc: ?Echo Lab ?BSA: ?2.19 Study Date: ?? 06/14/2015 ?Pt. Type: Tape: ? Referring: Shin Sebastian ([id number]) Referring: UNKNOWN Reading: Joseph Zuniga ([id number]) Industrial Education Teacher: Chiquis Kelly Nurse: Meka Kim Diagnosis: *ICD-10-PCS End stage renal disease (N18.6) CPT Codes: *Stress Echo (31336) *Color Doppler (82581) *Doppler LTD (48089) *ECG Interpretation (87796) *Definity (92503IF) Stage ? BP ?HR ? Rest ?157/82 [...] E-wave Vmax ?0.5 ?m/sec ? MV deceleration [id number] ?msec ? MV A-wave Vmax ?0.6 ?m/sec [...] ?Normal ?Normal ? Mid-Inferoseptal ?Normal ?Normal ? [place]-Septal ? Normal ?Normal ? [place]-Anterior ? Normal ?Normal ? [place]-Lateral ?Normal ?Normal ? [place]-Inferior ? Normal ?Normal ? [place]-Tip ?Normal ?Normal ? This report has been electronically signed by: Joseph Zuniga M.D. ? 06/14/2015 12:01:18 Images reviewed and interpretation verified [facility] Cardiac Ultrasound Laboratory Procedure Note Joseph Zuniga MD - 06/14/2015 Procedure: Stress Echocardiogram Patient: MABLE DORANTES(Age): 1950(64y) Med Rec#: [id number] Sex: M Site Loc: [facility] Ht / Wt: 177(cm)/102(kg) Pt. Loc: Echo Lab BSA: 2.19 Study Date: 06/14/2015 Pt. Type: Tape: Referring: Shin Sebastian ([id number]) Referring: UNKNOWN Reading: Joseph Zuniga ([id number]) Industrial Education Teacher: Chiquis Kelly Nurse: Meka Kim Diagnosis: *ICD-10-PCS End stage renal disease (N18.6) CPT Codes: *Stress Echo (41187) *Color Doppler (48924) *Doppler LTD (81744) *ECG Interpretation (22117) *Definity (23382UD) Stage BP HR Rest 157/82 60 Low [...] MV E-wave Vmax 0.5 m/sec MV deceleration [id number] msec MV A-wave Vmax 0.6 m/sec MV [...] Normal Mid-Inferior Normal Normal Mid-Inferoseptal Normal Normal [place]-Septal Normal Normal [place]-Anterior Normal Normal [place]-Lateral Normal Normal [place]-Inferior Normal Normal [place]-Tip Normal Normal This report has been electronically signed by: Joseph Zuniga M.D. 06/14/2015 12:01:18 Images reviewed and interpretation verified [facility] Cardiac Ultrasound Laboratory Shin Sebastian MD ECHO ORDERABLES * EKG 12 Lead (05/29/2015 10:24 AM EST) Ventricular rate 61 BPM MUSE SYSTEM Atrial Rate 61 BPM MUSE SYSTEM P-R Interval 192 ms MUSE SYSTEM QRS Duration 106 ms MUSE SYSTEM Q-T Interval 428 ms MUSE SYSTEM QTC Calculated (Bezet) 430 ms MUSE SYSTEM Calculated P [place] -19 degrees MUSE SYSTEM Calculated R [place] -54 degrees MUSE SYSTEM Calculated T [place] -10 degrees MUSE SYSTEM INTERPRETATION Normal sinus [...] disease documented in this encounter Care Teams Tile Layer Supervisor Relationship Specialty Start Date End Date Urbano Denis DO [address] [place] [address] [address] [place] [address] PCP - General 09/03/12 03/17/22 documented as of this encounter
--- OUTSIDE RECORDS SUMMARY | 2024-04-04 14:18 | XMS_ITS | Encounter Summary ---
Author Organization [facility] [place] [address] Care Team Providers Care Advertising Teacher Name Role Phone AdeelUrbano Primary Care Provider [phone] Reason for Referral * Consultation (Routine) - Closed Specialty Diagnoses / Procedures Referred By Humberto flor Referred To Contact Neurology Diagnoses Acute respiratory failure, unspecified whether with hypoxia or hypercapnia Shadi Wagner, [facility] [place] [address] [facility] Neurology [address] [place] [phone] Referral ID Status Reason Start Date Expiration Date V isits Requested Visits Authorized [id number] Closed Consult Only 04/09/2015 04/08/2016 1 1 Encounter Details Date Type Department Care Team (Late st Contact Info) Description 04/09/2015 Orders Only Nephrology [place] [address] Shadi Wagner, [facility] [place] [address] Acute respiratory failure, unspecified whether [...] EDT Patient seen in hemodialysis rounds at [facility]. Nursing staff noted that patient has had [...] PM EDT Office Visit Cardiology at [address] [phone] Jay Urban MD [facility] [place] [address] 04/15/2024 10:00 AM EDT Hospital Encounter Non-[place]vasive [place] [address] Arrived Scheduled Referrals Name Type Priority Associated Diagnoses Orde r Schedule Referral to Neurology Outpatient Referral Routine Acute respiratory failure, unspecified whether with hypoxia or hypercapnia Ordered: 04/09/2015 documented as of this encounter Visit Diagnoses Diagnosis Acute respiratory failure, unspecified whether with hypoxia or hypercapnia documented in this encounter Care Teams Advertising Teacher Relationship Specialty Start Date End Date Urbano Denis DO [facility] [address] [place] [address] PCP - General 09/03/12 03/17/22 documented as of this encounter
--- OUTSIDE RECORDS SUMMARY | 2024-04-04 14:18 | XMS_ITS | Encounter Summary ---
Author Organization [facility] [place] [address] Care Team Providers Care Quality Cloth Tester Name Role Phone Urbano Denis DO Primary Care Provider Encounter Details Date Type Department Care Team (Late st Contact Info) Description 01/24/2015 Orders Only Ne[place] [address] Urbano Loya MD [facility] [address] Social History Tobacco Use Types Packs/Day Years [...] PM EDT Office Visit Cardiology at [address] [phone] Jay Urban MD [facility] [place] [address] 04/15/2024 10:00 AM EDT Hospital Encounter Non-Invasive [place] [address] Arrived documented as of this encounter Visit Diagnoses Not on filedocumented in this encounter Care Teams Quality Cloth Tester Relationship Specialty Start Date End Date Urbano Denis DO [address] [place] [address] PCP - General 09/03/12 03/17/22 documented as of this encounter
--- OUTSIDE RECORDS SUMMARY | 2024-04-04 14:18 | XMS_ITS | Encounter Summary ---
Author Organization [facility] [place] [address] Care Team Providers Care Scissors Grinder Name Role Phone Urbano Denis DO Primary Care Provider [phone] Encounter Details Date Type Department Care Team (Late st Contact Info) Description 04/19/2015 Notes Only Solid Organ Transplant at [facility] [place] [address] Chapin Lehman MSW Social History Tobacco Use [...] Background and Supports: Pt was born [place], [place] graduated from [place] school in [place], [place]. Pt grew up in his biological [...] Pt reports that they were not a tenriism family, though pt was made to go to taoist until he was 14 years old. Pt [...] his life. 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 Pt was in 1983 and in 1987, [...] 20 miles from pt. Pt moved to [place] when they retired in 2003. Education/Employment/Financial Situation: [...] good relationship with him. Pt has good music teacher with Dr. Lazar. Pt reports that he will work well with his new music teacher.Did not like his previous music teacher here. Pt is in dialysis. Donors: Pt [...] PM EDT Office Visit Cardiology at [address] [phone] Jay Urban MD [facility] [place] [address] 04/15/2024 10:00 AM EDT Hospital Encounter Non-[place] [phone] Arrived documented as of this encounter Visit Diagnoses Not on filedocumented in this encounter Care Teams Scissors Grinder Relationship Specialty Start Date End Date Urbano Denis DO [address] [address] PCP - General 09/03/12 03/17/22 documented as of this encounter
--- OUTSIDE RECORDS SUMMARY | 2024-04-04 14:18 | XMS_ITS | Encounter Summary ---
[place] [address] Care Team Providers Care New Account Interviewer Name Role Phone AdeelUrbano toscano Primary Care Provider [phone] Encounter Details Date Type Department Care Team (Late st Contact Info) Description 05/02/2015 1:58 PM EDT Anesthesia [place] [address] Zohra Beltran, CAUSTIC LIQUOR MAKER [address] [facility] [address] [place] [address] Anesthesia Record Procedure Summary Procedure Name Responsible [...] 9:23 PM EDT Pre-Anesthesia Evaluation for: Cody Boldne a 64 y.o. male. Procedure(s): AV FISTULA [...] access Standard ASA monitors DYAN STARR MD [address] [place]-1 Region - Other Informed Consent: PAT Staff Note documented in this encounter Plan of Treatment Upcoming Encounters Date Type Department Care Team (Late st Contact Info) Description 04/08/2024 1:40 PM EDT Office Visit Cardiology at [address] [phone] Jay Urban MD [facility] [place] [address] 04/15/2024 10:00 AM EDT Hospital Encounter Non-[place] [phone] Arrived documented as of this encounter Visit Diagnoses Not on filedocumented in this encounter Care Teams New Account Interviewer Relationship Specialty Start Date End Date Urbano Denis DO [address] [place] [address] PCP - General 09/03/12 03/17/22 documented as of this encounter
--- OUTSIDE RECORDS SUMMARY | 2024-04-04 14:18 | XMS_ITS | Encounter Summary ---
Author Organization [facility] Address [facility] [place] [address] Care Team Providers Care Mini Bar Attendant Name Role Phone [place]ia Denis DO Primary Care Provider + [phone] Reason for Visit * Reason Comments GI Problem Encounter Details Date Type Department Care Team (Late st Contact Info) Description 05/16/2015 3:00 PM EST Office [place] [address] Tulio Marcelo MD [facility] [place] [address] Chronic hepatitis C without hepatic coma; Hepatitis [...] Marcelo MD - 05/16/2015 3:26 PM EST [facility] NEW HEPATOLOGY EVALUATION Patient: Cody Bolden Date of : 1950 CARE TRANSITION MGR: Tulio Marcelo MD PCP: ALBANIA DENIS DO [...] nasal drugs (-) Tattoos? (-) service (+) [phone], airgun vaccines Blood Transfusions (-) Close contact with Hepatitis Relationship (+) cousan [phone]. never tested FAMILY HISTORY Negative except as [...] with sexual activity Decreased desire for sexual Sully History of Sexually Transmitted Disease Urinating more [...] Results Component Value Date INR 1.0 05/11/2015 [facility] Hepatology Fibrosis Assessment 05/16/2015 Liver disease diagnosis: HCV, NAFLD Procedure: Vibration Controlled Transient Elastography (VCTE) or Fibroscan Patterson Protocol: Patient's identity, procedure and site were [...] Marcelo MD Section of Gastroenterology and Hepatology [facility] [place] [address] V: [phone] F: [phone] Copy: DO elder FUENTES documented in this encounter Plan of Treatment Upcoming Encounters Date Type Department Care Team (Late st Contact Info) Description 04/08/2024 1:40 PM EDT Office Visit Cardiology at [address] [address] Jay Urban MD [facility] [place] [address] 04/15/2024 10:00 AM EDT Hospital Encounter Non-[place]vasive [place] [address] Arrived Pending Results Name Type Priority Associated [...] Liver Fibrosis Panel (05/16/2015 4:33 PM EST) Pathologist [facility] Liver Fibrosis Panel FLEXITEST 3(A) [facility] Comment: FLEXITEST 3 TESTS RESULTS--------UNITS--REF. RANGE--- Fibrosis [...] 0.61-0.62 ?A2-A3 0.63-1.00 ?A3 ? severe activity Urrkk-7-Rllmcvipslrfc ? 124 ?mg/dL ??106-279 Haptoglobin ?95 ?mg/dL ??43-212 Apolipoprotein A1 ?49 L ?mg/dL ??94-176 This value is very low, under the 1 percentile. Check the value. Usual minimum value is 56.0 mg/dl. Total Bilirubin ? 1.0 ?mg/dL ??0.2-1.2 GGT ?26 ?U/L ??3- 70 ALT ?15 ?U/L ??9- 46 Reference ID ?[id number] Footnote ?SEE NOTE The reliability of results is dependent on compliance with the preanalytical and analytical conditions recommended by [place] community health[facility]USEUM[facility]. The tests have to be deferred for: [...] The performance characteristics have been determined by [facility]. It has not been cleared or approved by the U.S. Food and Drug Administration. Performance characteristics refer to the analytical performance of the test. [employer], the associated logo, My [employer] and all associated e[employer] jacobsen are the registered trademarks of [employer]. All third democrat jacobsen - (R) and (TM) - are the property of their respective owners. (C) [phone] [employer]. All rights reserved. Test performed by: ? [facility] ? [address] [facility] ? [place] [address] ? Phone: ??[phone] Director: ??Tanmay Huggins M.D. Test Reported by [facility], [address] [facility], [place], [place] Fer Stoll M.D., Ph.D., Director of Laboratories , [facility] [id number] Blood specimen (specimen) Venous Draw / Unknown 05/16/2015 4:33 PM EST 05/17/2015 7:56 AM EST Narrative Resulting Agency Comment Spec In Lab Tulio Marcelo MD LAB SEND OUT [place] documented in this encounter Visit Diagnoses Diagnosis Chronic hepatitis C without hepatic coma Hepatitis C virus infection without hepatic coma, unspecified chronicity documented in this encounter Care Teams Mini Bar Attendant Relationship Specialty Start Date End Date Albania Denis DO [address] [place] [address] PCP - General 09/03/12 03/17/22 Ruchi Valles RN Nurse Clinic Transplant Surgery 07/30/15 documented as of this encounter
--- OUTSIDE RECORDS SUMMARY | 2024-04-04 14:18 | XMS_ITS | Encounter Summary ---
Author Organization [facility] [place] [address] Care Team Providers Care Industrial Relations Worker Name Role Phone Adeel Urbano KIRBY Primary Care Provider Encounter Details Date Type Department Care Team (Latest Contact Info) Description 05/16/2015 4:10 PM EST Laboratory Appointment Lab [address]L [place] [address] Hypertension; Proteinuria; DM type 2 (diabetes mellitus, [...] PM EDT Office Visit Cardiology at [address] [phone] Jay Urban MD [facility] [place] [place] [address] 04/15/2024 10:00 AM EDT Hospital Encounter Non-[place] [address] Arrived Pending Results Name Type [...] of HCV genotype was carried out using Truckily XT-8 detection system. Method: Plasma was initially subjected to quantitative RT-PCR using the Kirsten JUNE Ampliprep/JUNE Taqman HCV assay. The HCV genotyping was carried out using Truckily XT-8 detection system that targets 5? -untranslated region of the HCV genome. The amplicon from the Kirsten assay served as a template for the nested PCR followed by a direct analysis on the electrochemical Veohensor XT-8 detection system for the identification of HCV genotypes. The genotypes/subtypes detected by this method include 1a, 1b, 2a/c, 2b, 3, 4, 5 and 6a/b. This test was validated and its performance characteristics determined by the Molecular Pathology Laboratory at [facility]. It has not been cleared or approved by the FDA. This laboratory is regulated under CLIA as qualified to perform high-complexity testing. This test is used for clinical purposes. It should not be regarded as investigational or for research. References: Kleshani RM, Rubén DJ, Kelton R, Gauri SD. Evolving epidemiology of hepatitis C virus in the [place]. Clin Infect Dis. 2012; 55:S3-9. Yvnoned F, Monroe D. Treating hepatitis C: current standard of care and emerging direct-acting antiviral agents. J Viral Hepat. 2012; 19:449-64. Amrita MH, Elias EB. Prevalence and treatment of hepatitis C virus genotypes 4, 5, and 6. Clin Gastroenterol Hepatol. 2005; 3:L61-J787. Kristofer JS, Aspandrel E, Sole D, Elder AJ, Richy ME. Current and emerging antiviral treatments for hepatitis C infection. Br J Clin Pharmacol. 2012 Feb 13. [Epub ahead of print] [facility] Comment: [VERIFIED DATE]05.23.15 Verified By:Fatemeh Garcia (Electronic Signature) Blood specimen (specimen) 05/16/2015 4:33 PM EST 05/18/2015 8:13 AM EST Narrative Resulting Agency Comment Spec In Lab Tulio Marcelo MD HEMATOLOGY ORDERABL ES [facility] Organization Address City/State/ZIP Co de Phone Number CERNER MILLENNIUM * Differential, Automated (05/16/2015 4:33 PM EST) Neutrophil % 71.7 % CERNER MILLENNIUM Neutrophil Absolute 5.29 1.50 - 6.30 x10(3)/mcL [...] MD HEMATOLOGY ORDERABL ES [facility] * (ABNORMAL) Hemogram (05/16/2015 4:33 PM EST) White Blood Cell 7.4 4.0 - 10.0 x10(3)/mc L CERNER MILLENNIUM Red Blood Cell 3.72(L) 4.63 - 6.08 x10(6)/mc L CERNER MILLENNIUM Hemoglobin 11.5(L) 13.7 - 17.5 gm/dL CERNER MILLENNIUM Hematocrit 34.4(L) 40.0 - 51.0 % [facility]ERROSALINA PEACOCKIUM Mean Cell Volume 92.5(H) 79.0 - 92.0 fL [facility] Mean Cell Hemoglobin 30.9 25.6 - 32.2 pg [facility]ICT PEACOCKIUM Mean Cell Hemoglobin Concentration 33.4 32.0 - 36.5 gm/dL [facility]ICT PEACOCKIUM Platelet 228 145 - 370 x10(3)/mc L [facility] PEACOCKIUM RDW Standard Deviation 50.0(H) 35.0 - 46.0 fL [facility]ICT PEACOCKIUM RDW coefficient of variation 15.0(H) 10.9 - 14.4 % BENEDICT PEACOCKIUM Mean Platelet Volume 9.9 9.0 - 12.0 fL [facility] C[facility] Blood specimen (specimen) 05/16/2015 4:33 PM EST 05/16/2015 4:57 PM EST Narrative Resulting Agency Comment Spec In Lab Tulio Marcelo MD HEMATOLOGY ORDERABL ES Performing Organization Address [facility] Co de Phone Number [facility]ICT COOK * Miscellaneous Lab request (05/16/2015 4:33 PM EST) Label Request received in lab. [facility] COOK Blood specimen (specimen) 05/16/2015 4:33 PM EST 05/16/2015 4:57 PM EST Narrative Resulting Agency Comment Spec In Lab Tulio Marcelo MD LAB SEND OUT ORDERA BLES Performing Organization Address [facility] Co de Phone Number BENEDICT COKO * Hepatitis C RNA, quantitative, PCR (05/16/2015 4:33 PM EST) HCV Viral Load 471,245 IU/mL [facility] HCV Viral Load Result: [id number] IU/mL Indication for Study: Hepatitis C Infection Analysis: A quantitiative real time reverse transcriptase PCR assay was performed on extracted viral RNA for the purpose of quantification. Sample: plasma (1 mL minimum volume) Method: Kirsten June TaqMAN 48 HCV Linear Range: 15 IU/mL - 100,000,000IU/mL (95% CI) Note: This assay is being performed in the [facility] Molecular Pathology Laboratory. Gibson Good, Ph.D. Director, Molecular Pathology [facility] Comment: [VERIFIED DATE]05.18.15 Verified By:Xiomy Gupta (Electronic Signature) Blood specimen (specimen) 05/16/2015 4:33 PM EST 05/18/2015 8:13 AM EST Narrative Resulting Agency Comment Spec In Lab Tulio Marcelo MD MOLECULAR ORDERABLE S Performing Organization Address [facility] de Phone Number [facility] * Prothrombin Time (05/16/2015 4:33 PM EST) Pathologist [facility] Prothrombin Time 13.7 12.0 - 15.0 sec [facility] Comment: Transfusion Committee Guidelines: INR less than 2.0, PTT less than OR equal to 43.5 seconds, or Fibrinogen greater than or equal to 100 mg/dl indicate adequate procoagulant activity for hemostasis in patients without underlying bleeding disorders. International Normalization Ratio 1.0 0.9 - 1.1 [facility] Blood specimen (specimen) 05/16/2015 4:33 PM EST 05/16/2015 4:57 PM EST Narrative Resulting Agency Comment Spec In Lab Tulio Marcelo MD HEMATOLOGY ORDERABL ES Performing Organization Address [facility] Phone Number [facility] * (ABNORMAL) Comprehensive metabolic panel (non-fasting) (05/16/2015 4:33 PM EST) Pathologist [facility] Glucose 115 65 - 199 mg/dL [facility] Comment:Diabetes: >=200 mg/d L plus symptoms Blood Urea Nitrogen 22(H) 10 - 20 mg/dL [facility] MILLENNIUM Creatinine 4.29(H) 0.80 - 1.50 mg/dL [facility] MILLENNIUM Comment: Please note that the pediatric reference intervals supplied above were not validated at [facility]. Results from pediatric patients should be interpreted in conjunction to the patient's age, height and muscle mass. Sodium 141 135 - 145 mmol/L [facility] Potassium 4.4 3.5 - 5.0 mmol/L CERNER [...] the following links into your internet browser. [email or web address] Blood specimen (specimen) 05/16/2015 4:33 PM EST 05/16/2015 4:57 PM EST Narrative Resulting Agency Comment Spec In Lab Tulio Marcelo MD CHEMISTRY ORDERABLE S [facility]ERNER MILLENNIUM documented in this encounter Visit Diagnoses [...] coma documented in this encounter Care Teams Industrial Relations Worker Relationship Specialty Start Date End Date Urbano Denis DO [address] [place] [address] PCP - General 09/03/12 03/17/22 documented as of this encounter
--- OUTSIDE RECORDS SUMMARY | 2024-04-04 14:18 | XMS_ITS | Encounter Summary ---
Author Organization [facility] [place] [address] Care Team Providers Care Corporate Recycling Manager Name Role Phone Urbano Denis DO [...] Expiration Date Visits Re quested Visits Authorized [id number] Closed 1 1 Encounter Details Date Type Department Care Team (Late st Contact Info) Description 05/09/2015 12:28 PM [facility] - 05/09/2015 5:37 PM [facility] Hospital [place] [address] Jennifer Amaro MD [facility] [place] [address] CKD (chronic kidney disease), unspecified stage Discharge [...] concerning symptoms The number for questions is [phone] before 5 PM weekdays and [phone] after 5 PM and on weekends (ask for the General Surgery resident instructional media services technician). Activity level: Do not lift more than [...] Del Castillo MD General Surgery, PGY2 P# [phone] documented in this encounter H&P Notes * [...] Amaro MD - 05/09/2015 4:01 PM EST [facility] Operative Note Patient Name: Cody Bolden : [id number] MR#: [id number] Case Date: 05/09/2015 Surgeon: Surgeon(s) and Role: [...] PM EDT Office Visit Cardiology at [address] [phone] Jay Urban MD [facility] [place] [address] 04/15/2024 10:00 AM EDT Hospital Encounter Non-Invasive Cardiology Lab [facility] [place] [phone] Arrived documented as of this encounter Procedures [...] Glucose, POC 98 65 - 199 mg/dL [facility] Comment: Supplemental ranges: <140 mg/dL before meals <180 mg/dL all other times of the day Blood specimen (specimen) 05/09/2015 1:30 PM EST 05/09/2015 1:30 PM EST Jennifer Amaro MD POINT OF CARE TEST ORDERABLES [facility] * Potassium (05/09/2015 12:45 PM EST) Potassium 4.2 3.5 - 5.0 mmol/L [facility] Comment: Please note: ??Patients with WBC [...] MD CHEMISTRY ROCHELLE JENNINGS Performing Organization Address City/State/ZIP Co wv Phone Number [facility] COOK documented in this [...] RN) documented in this encounter Care Teams Corporate Recycling Manager Relationship Specialty Start Date End Date Urbano eDnis DO [address] [place] [address] PCP - General 09/03/12 03/17/22 documented as of this encounter
--- OUTSIDE RECORDS SUMMARY | 2024-04-04 14:18 | XMS_ITS | Encounter Summary ---
Author Organization [facility] [place] [address] Care Team Providers Care Loss Prevention Research Engineer Name Role Phone [place] Denis DO Primary Care Provider Encounter Details Date Type Department Care Team (Late st Contact Info) Description 07/11/2014 9:00 AM EST Follow-Up [place] [address] Albania Loya MD [facility] [place] [address] CKD (chronic kidney disease) stage 3, GFR [...] 9:25 AM EST Nephrology/Hypertension Clinic Follow-up Note [id number] ID: 63 y.o.year-old male for follow up [...] 0.12 % Mouthwash 0 ??? FLUZONE QUAD [id number], PF, 60 mcg (15 mcg x 4)/0.5 [...] PM EDT Office Visit Cardiology at [address] [place] [phone] Jay Urban MD [facility] [place] [id number] 04/15/2024 10:00 AM EDT Hospital Encounter Non-Invasive Cardiology Lab [facility] [place] [address] Arrived documented as of this [...] MD URINE ORDERABLES CERNER MILLENNIUM * (ABNORMAL) Protein/Creatinine Ratio, urine (07/11/2014 9:43 AM EST) Creatinine, Urine 209 mg/dL CERNER MILLENNIUM Protein, Urine 741(H) 0 - 12 mg/dL CERNER MILLENNIUM Protein / Creatinine Ratio, Urine 3.5 ratio [facility]ERNER MILLENNIUM Urine specimen (specimen) 07/11/2014 9:43 AM EST 07/11/2014 9:47 AM EST Narrative Resulting Agency Comment Spec In Lab Albania Loya MD URINE ORDERABLES Performing Organization Address City/[facility]/ZIP Co de Phone Number CERNER MILLENNIUM * Differential, Automated (07/11/2014 9:37 [...] Lab Albania Loya MD HEMATOLOGY ORDERABLE S CERROSALINA MILLENNIUM * Protein Electrophoresis, serum (07/11/2014 [...] In Lab Albania Loya MD CHEMISTRY ORDERABLES [facility] * (ABNORMAL) Hemoglobin A1c (07/11/2014 9:37 AM [...] Mellitus, Diabetes Care 2013; 36: Suppl. 1, Q27-63 Estimated Average Glucose 123 mg/dL CERNER MILLENNIUM Comment: eAG equivalents for HbA1c percentages: HbA1c(%) ?eAG(mg/dL) 6.0 ?126 6.5 ?140 7.0 ?154 7.5 ?169 8.0 ?183 8.5 ?197 9.0 ?212 9.5 ?226 10.0 ? 240 Limitations: The eAG calculation has not been validated on women, individuals below 18 years old and above 70 years old, and individuals with hemoglobinopathies. Additional resources are available on the ADA website: [email or web address] Harjeet MENDOSA, Chanel J, Philip R, et al. ??Translating the A1C assay into estimated average glucose values. ??Diabetes Care 2008:31(8):5224-9424. Blood specimen (specimen) 07/11/2014 9:37 AM EST 07/11/2014 9:41 AM EST Narrative Resulting Agency Comment Spec In Lab Albania Loya MD CHEMISTRY ORDERABLES Performing Organization Address [facility] de Phone Number CERROSALINA PEACOCKIUM * Phosphorus (07/11/2014 9:37 AM EST) Phosphorus 3.4 2.5 - 4.5 mg/dL CERNER MILLENNIUM Blood specimen (specimen) 07/11/2014 9:37 AM EST 07/11/2014 9:41 AM EST Narrative Resulting Agency Comment Spec In Lab Albania Loya MD CHEMISTRY ORDERABLES Performing Organization Address [facility] de Phone Number CERROSALINA PEACOCKIUM * Albumin Level (07/11/2014 9:37 AM EST) Albumin 3.7 3.2 - 5.2 gm/dL CERNER MILLENNIUM Blood specimen (specimen) 07/11/2014 9:37 AM EST 07/11/2014 9:41 AM EST Narrative Resulting Agency Comment Spec In Lab Albania Loya MD CHEMISTRY ORDERABLES Performing Organization Address [facility] de Phone Number CERROSALINA [facility]CCLENDON[facility]UM * (ABNORMAL) PTH (07/11/2014 9:37 AM EST) Parathyroid Hormone 164(H) 15 - 65 pg/mL CERNER MILLENNIUM Blood specimen (specimen) 07/11/2014 9:37 AM EST 07/11/2014 9:41 AM EST Narrative Resulting Agency Comment Spec In Lab Albania Loya MD CHEMISTRY ORDERABLES CERNER DANELLEENNIUM * (ABNORMAL) Basic Metabolic Panel (non-fasting) (07/11/2014 [...] the following links into your internet browser. [email or web address] Blood specimen (specimen) 07/11/2014 9:37 AM EST 07/11/2014 9:41 AM EST Narrative Resulting Agency Comment Spec In Lab Albania Loya MD CHEMISTRY ORDERABLES [facility] documented in this encounter Visit Diagnoses [...] system documented in this encounter Care Teams Loss Prevention Research Engineer Relationship Specialty Start Date End Date Albania Denis DO [address] [place] [address] PCP - General 09/03/12 03/17/22 documented as of this encounter
--- OUTSIDE RECORDS SUMMARY | 2024-04-04 14:18 | XMS_ITS | Encounter Summary ---
Author Organization [facility] [place] [address] Care Team Providers Care Harvesting Contractor Name Role Phone AdeelUrbano boland Primary Care Provider Encounter Details Date Type Department Care Team (Late st Contact Info) Description 06/20/2015 Multidisciplinary Ca re Committee [place] [address] Ellen Foote RN Social History Tobacco Use [...] for Kidney transplant. He have seen the [facility];Dr. Marcelo and have recommended not to treat his Hepatitis C. He will be treated after he received a transplant, the team have agreed with the recommendation. His DSE was also.completed and is normal. documented in this encounter Plan of Treatment Upcoming Encounters Date Type Department Care Team (Late st Contact Info) Description 04/08/2024 1:40 PM EDT Office Visit Cardiology at [address] [phone] Jay Urban MD [facility] [place] [address] 04/15/2024 10:00 AM EDT Hospital Encounter Non[place] [address] Arrived documented as of this encounter Visit Diagnoses Not on filedocumented in this encounter Care Teams Harvesting Contractor Relationship Specialty Start Date End Date Urbano Denis DO [address] [facility] [address] [place] [address] PCP - General 09/03/12 03/17/22 documented as of this encounter
--- OUTSIDE RECORDS SUMMARY | 2024-04-04 14:18 | XMS_ITS | Encounter Summary ---
Author Organization Formerly [facility] [place] [address] Care Team Providers Care Supervisor Malt House Name Role Phone AdeelUrbano toscano Primary Care Provider Encounter Details Date Type Department Care Team (Late st Contact Info) Description 05/04/2015 Orders Only [place] [phone] Tulio Marcelo MD [facility] DR GASTROENTEROLOGY DEPT. [place], [place] [id number] Chronic hepatitis C without hepatic coma Social [...] PM EDT Office Visit Cardiology at [address] [phone] Jay Urban MD [facility] [address] [place], [place] [phone] 04/15/2024 10:00 AM EDT Hospital Encounter [place] [address] Arrived documented as of this encounter Results * Miscellaneous Lab request (05/16/2015 4:33 PM EST) Label Request received in lab. [facility] Blood specimen (specimen) 05/16/2015 4:33 PM EST 05/16/2015 4:57 PM EST Narrative Resulting Agency Comment Spec In Lab Tulio Marcelo MD LAB SEND OUT ORDERA BLES Performing Organization Address [facility] Co de Phone Number [facility] * Hepatitis C RNA, quantitative, PCR (05/16/2015 4:33 PM EST) HCV Viral Load 471,245 IU/mL [facility] HCV Viral Load Result: [id number] IU/mL Indication for Study: Hepatitis C Infection Analysis: A quantitiative real time reverse transcriptase PCR assay was performed on extracted viral RNA for the purpose of quantification. Sample: plasma (1 mL minimum volume) Method: Kirsten June TaqMAN 48 HCV Linear Range: 15 IU/mL - 100,000,000IU/mL (95% CI) Note: This assay is being performed in the [facility] Molecular Pathology Laboratory. Gibson Good, Ph.D. Director, Molecular Pathology [facility] Comment: [VERIFIED DATE]05.18.15 Verified By:Xiomy Gupta (Electronic Signature) Blood specimen (specimen) 05/16/2015 4:33 PM EST 05/18/2015 8:13 AM EST Narrative Resulting Agency Comment Spec In Lab Tulio Marcelo MD MOLECULAR ORDERABLE S Performing Organization Address [facility] Co de Phone Number [facility] * Prothrombin Time (05/16/2015 4:33 PM EST) Prothrombin Time 13.7 12.0 - 15.0 sec [facility] Comment: Transfusion Committee Guidelines: INR less than 2.0, PTT less than OR equal to 43.5 seconds, or Fibrinogen greater than or equal to 100 mg/dl indicate adequate procoagulant activity for hemostasis in patients without underlying bleeding disorders. International Normalization Ratio 1.0 0.9 - 1.1 [facility] Blood specimen (specimen) 05/16/2015 4:33 PM EST 05/16/2015 4:57 PM EST Narrative Resulting Agency Comment Spec In Lab Tulio Marcelo MD HEMATOLOGY ORDERABL ES [facility] * (ABNORMAL) Comprehensive metabolic panel (non-fasting) (05/16/2015 4:33 PM EST) Glucose 115 65 - 199 mg/dL [facility] Comment:Diabetes: >=200 mg/d L plus symptoms Blood Urea Nitrogen 22(H) 10 - 20 mg/dL [facility] Creatinine 4.29(H) 0.80 - 1.50 mg/dL [facility] Comment: Please note that the pediatric reference intervals supplied above were not validated at [facility]. Results from pediatric patients should be interpreted [...] MILLENNIUM Est Glomerular Filtration Rate 14(L) >=60 [facility] Comment: This estimated GFR (eGFR) value was [...] the following links into your internet browser. [email or web address] Blood specimen (specimen) 05/16/2015 4:33 PM EST 05/16/2015 4:57 PM EST Narrative Resulting Agency Comment Spec In Lab Tulio Marcelo MD CHEMISTRY ORDERABLE S [facility] documented in this encounter Visit Diagnoses Diagnosis Chronic hepatitis C without hepatic coma documented in this encounter Care Teams Supervisor Malt House Relationship Specialty Start Date End Date Urbano Denis DO [address] [place] [address] PCP - General 09/03/12 03/17/22 documented as of this encounter
--- OUTSIDE RECORDS SUMMARY | 2024-04-04 14:18 | XMS_ITS | Encounter Summary ---
Author Organization [facility] [place] [address] Care Team Providers Care Dress Operator Name Role Phone Adeel, Urbano KIRBY Primary Care Provider [phone] Encounter Details Date Type Department Care Team (Late st Contact Info) Description 01/16/2015 Orders [place] [address] Qeu Amaro MD [facility] [place] [address] ESRD (end stage renal disease) Social History [...] PM EDT Office Visit Cardiology at [address] [phone] Jay Urban MD [facility] [address] [place], [place] [phone] 04/15/2024 10:00 AM EDT Hospital Encounter Non-Invasive [place] [address] Arrived documented as of this encounter Visit Diagnoses Diagnosis ESRD (end stage renal disease) End stage renal disease documented in this encounter Care Teams Dress Operator Relationship Specialty Start Date End Date Urbano Denis DO [address] [facility] 1 [place] [address] PCP - General 09/03/12 03/17/22 documented as of this encounter
--- OUTSIDE RECORDS SUMMARY | 2024-04-04 14:18 | XMS_ITS | Encounter Summary ---
Author Organization [facility] Address [facility] [place] [address] Care Team Providers Care Maintenance And Engineering Manager Name Role Phone Urbano Denis DO Primary Care Provider Reason for Visit * Reason Comments Kidney Transplant Evaluation End Stage Renal Disease Encounter Details Date Type Department Care Team (Late st Contact Info) Description 04/19/2015 8:00 AM EDT Office Visit Solid [place] [address] Tal Eagle MD [facility] [place] [address] Pre-transplant evaluation for ESRD (end stage renal [...] Bright - 05/23/2015 12:29 PM EST Transplant Retail Cashier Associate Note: Met with patient and his in Kidney Class to review medical and pharmacy benefits for transplant services. He is covered under Medicare AB as well as an [employer] retiree plan as his supplement. [employer] is his part D plan. I did not have his prescription insurance information prior to meeting with him, therefore I arranged with him to mail estimated post transplant medications copays. Primary Insurance: Medicare AB Secondary Plan:BCBS Medigap plan (part of longterm) Pharmacy Carrier:[employer] part D - longterm sponsored * Herlinda Bell RD - 04/19/2015 4:25 PM EDT TRANSPLANT NUTRITION Initial Transplant Note This sheet writer met with Cody Bolden a 64 y.o. year old male on 04/19/2015 for nutrition assessment as part of kidney transplant work-up. Patient and his , Mara, attended the Kidney Transplant Information Session and then met with each member of the transplant team. Patient has previously been worked up for transplant at [facility]. Medical history: ESRD, DM2, HTN, Hep C, obstructive sleep apnea, h/o colon polyp, GERD, CVA Diabetic History: Type 2 not on any insulin or OHA Dialysis History: initiated 01/2015 and receives his treatments at the [facility] dialysis unit. Patient and his state [...] means for contact provided. Plan communicated to Ciaio Lumite Injector for Documentation in patient's transplant medical record. Remain available for questions/concerns. * Ellen Bauer RN - 04/19/2015 2:50 PM EDT Solid Organ Acquisition and Transplantation [facility] PRE-OPERATIVE PATIENT TEACHING PATIENT NAME: Cody Bolden : 1950 Identification Barriers (Check those that apply): X None Identified Unable to Read Fatigue/Pain Vision Motivation Cultural/Pentecostal Hearing Language Lisw Needed Other Learner: Patient Name: Cody Bolden Family/Caregiver Name: Paola Yuan Attendees: Paola [...] expectations, unit assignments, ADL activities, VS, monitors, MOTION STUDY ANALYST pain management, return to work schedules). X [...] done,waiting toschedule placement, seeing Dr. Hunt. * Anibal Haro, [facility] - 04/19/2015 1:11 PM EDT Encounter Date: [...] fill your prescription completely)? Mr. Bolden uses [facility] in [place], [place] and has never had any problems [...] 20 mg by mouth daily. No current [facility]-ordered facility-administered medications on file. Assessment/plan: 1. There are no medication contraindications noted to proceed with transplant surgery. 2. The need for oil heaterman medication and potential adjustment of medications post-transplant were discussed. 3. Patient was provided with handout reviewing post-transplant discharge medication costs. 4. Will remain available for any medication questions ANIBAL HARO RPH * Tal Eagle MD - 04/19/2015 11:46 AM EDT TRANSPLANT NEPHROLOGY CONSULT PATIENT: Cody Bolden : 1950 REASON FOR CONSULTATION: Kidney transplant Pre evaluation referred by Dr. Urbano Denis ID: 62 y.o. old male seen at the request of Dr. Denis for pre transplant evaluation for his kidney. He apparently has previously undergone a transplant evaluation at the [facility]. He has been told he will need [...] evaluation. [facility] by Dr [facility] (per pt after that he changed his representative government relations after discussing with his PCP.[facility] representative government relations did kideny biopsy which according to pt showed ESRD due to DM and HTN. He has been on HD MWF at [facility] since then being followed by Dr Franco there. He is on list for kidney transplant since December [address] [facility] as he has one house in [place] and visits that area very frequently. Off note Pt is also being worked up by GI at [facility] for his hepatitis C. MEDICATIONS: Current Outpatient [...] for his fistula creation. Obtain record from [facility]. Seen and Discussed w/ Dr. Shagufta Villasenor MD Nephrology fellow Pager # [phone] I reviewed all of the above findings and assessment of Dr. Villasenor and formulated the recommendationswhich accurately reflect mine. 120 Min., >50% in direct face to face reimbursement counselor. documented in this encounter Plan of Treatment Upcoming Encounters Date Type Department Care Team (Late st Contact Info) Description 04/08/2024 1:40 PM EDT Office Visit Cardiology at [address] [phone] Jay Urban MD [facility] [place] [address] 04/15/2024 10:00 AM EDT Hospital Encounter Non-[place] [address] Arrived documented as of this encounter Visit Diagnoses Diagnosis Pre-transplant evaluation for ESRD (end stage renal disease) Other specified pre-operative examination Type 2 diabetes mellitus with ESRD (end-stage renal disease) Type II or unspecified type diabetes mellitus with renal manifestations, not stated as uncontrolled documented in this encounter Care Teams Maintenance And Engineering Manager Relationship Specialty Start Date End Date Urbano Denis DO [address] [place] [address] PCP - General 09/03/12 03/17/22 documented as of this encounter
--- OUTSIDE RECORDS SUMMARY | 2024-04-04 14:18 | XMS_ITS | Encounter Summary ---
Author Organization [facility] Address [facility] [place] [address] Care Team Providers Care Multi Sensor Operator Name Role Phone Urbano Denis DO Primary Care Provider [phone] Encounter Details Date Type Department Care Team (Late st Contact Info) Description 01/04/2015 Telephone Nephrology [place] [address] Urbano Loya MD [facility] [place] [address] Social History Tobacco Use Types Packs/Day Years [...] nephrology at [facility]. He has been seeing Mr. Lewis for a few months and his Cr has been steadily rising to the mid 5s. Mr. Bolden is developing some AM nausea and Dr. Lewis is concerned that he is becoming uremic. He would like me to arrange dialysis catheter placement here and dialysis initiation at [facility]. I called Mr. Lewis who reports that he was hospitalized 2 months ago for severe hypertension and several of his medications were changed. His Eliquis was stopped. He does endorse fatigue and AM nauseaand is interested in starting dialysis. He is also being evaluated for a kidney transplant in [place]. Juan order renal function testing and hep B serologies to be done at [facility] tomorrow and have contacted IR for dialysis catheter placement. They can take him Thursday morning. I will contact . dialysis in the morning to confirm that they have an opening to take a new dialysis patient. documented in this encounter Plan of Treatment Upcoming Encounters Date Type Department Care Team (Late st Contact Info) Description 04/08/2024 1:40 PM EDT Office Visit Cardiology at [address] [phone] Jay Urban MD [facility] [place] [address] 04/15/2024 10:00 AM EDT Hospital Encounter Non-[place] [phone] Arrived documented as of this encounter Results [...] NOTE Procedure: Tunneled HD catheter placement. ACC#: [id number] Indication for Procedure: 64 y.o. male with Stage 5 CKD who presents for placement of a tunneled pheresis catheter for dialysis. Per Dr. Loya 01/04/15, Spoke with Dr. Lewis from nephrology at [facility]. He has been seeing [Yuan] for a few months and his Cr has been steadily rising to the mid 5s. Mr. Bolden is developing some AM nausea and Dr. Lewis is concerned that he is becoming uremic. He would like me to arrange dialysis catheter placement here and dialysis initiation at [facility]. Procedure events and findings: After obtaining [...] NOTE Procedure: Tunneled HD catheter placement. ACC#: [id number] Indication for Procedure: 64 y.o. male with Stage 5 CKD who presents for placement of a tunneled pheresis catheter for dialysis. Per Dr. Loya 01/04/15, Spoke with Dr. Lewis from nephrology at [facility]. Vinods been seeing [Yuan] for a few months and his Cr has been steadily risingto the mid 5s. Mr. Bolden is developing some AM nausea and Dr. Lewis isconcerned that he is becoming uremic. He would like me to arrange dialysiscatheter placement here and dialysis initiation at [facility]. Procedure events and findings: After obtaining [...] unspecified documented in this encounter Care Teams Multi Sensor Operator Relationship Specialty Start Date End Date Urbano Denis DO [address] [place] [address] PCP - General 09/03/12 03/17/22 documented as of this encounter
--- OUTSIDE RECORDS SUMMARY | 2024-04-04 14:18 | XMS_ITS | Encounter Summary ---
Author Organization [facility] [place] [address] Care Team Providers Care Family Worker Name Role Phone Urbano Denis DO Primary Care Provider Encounter Details Date Type Department Care Team (Late st Contact Info) Description 05/29/2015 11:00 AM EST Office Visit [place] [address] Jennifer Amaro MD [facility] [place] [address] A-V fistula Social History Tobacco Use Types [...] performed by Jennifer Amaro MD at [facility] MAIN OR FAMILY HISTORY: No family [...] of the left hand. Neurological: Normal symmetric sea captain strength in the bilateral hands. He has [...] PM EDT Office Visit Cardiology at [address] [phone] Jay Urban MD [facility] [place] [address] 04/15/2024 10:00 AM EDT Hospital Encounter Non-Invasive [place] [phone] Arrived documented as of this encounter Visit Diagnoses Diagnosis A-V fistula Arteriovenous fistula, acquired documented in this encounter Care Teams Family Worker Relationship Specialty Start Date End Date Urbano Denis DO [address] [place] [address] PCP - General 09/03/12 03/17/22 documented as of this encounter
--- OUTSIDE RECORDS SUMMARY | 2024-04-04 14:18 | XMS_ITS | Encounter Summary ---
Author Organization Formerly [facility] [place] [address] Care Team Providers Care National Sales Executive Name Role Phone Urbano Denis DO Primary Care Provider [phone] Reason for Visit * Auth/Cert - Closed Specialty Diagnoses / Procedures Referred By Humberto t Referred To Contact Diagnoses ESRD ESRD Procedures AV FISTULA CREATION, DIRECT HEMODIALYSIS, ANY SITE, EG ASHWINI FISTULA UPPER EXTREMITY AV FISTULA CREATION, DIRECT HEMODIALYSIS, ANY SITE, EG ASHWINI FISTULA UPPER EXTREMITY Referral ID Status Reason Start Date Expiration Date Visits Re quested Visits Authorized [id number] Closed 1 1 Encounter Details Date Type Department Care Team (Late st Contact Info) Description 05/09/2015 2:04 PM EST Anesthesia Event [place] [address] Tal Basurto MD [facility] [place] [address] Marisela Cohen MD [facility] [place] [address] Anesthesia Record Procedure Summary Procedure Name Responsible [...] 1335; metacarpal vein right (top of hand); sazv-[id number] catheter system; 18 gauge, 1 in length; [...] consented to blood products. Plan discussed with STAINED GLASS INSTALLER. PAT Staff Note documented in this encounter Plan of Treatment Upcoming Encounters Date Type Department Care Team (Late st Contact Info) Description 04/08/2024 1:40 PM EDT Office Visit Cardiology at [address] [phone] Jay Urban MD [facility] [place] [address] 04/15/2024 10:00 AM EDT Hospital Encounter Non-Invasive [place] [address] Arrived documented as of [...] EST documented in this encounter Care Teams National Sales Executive Relationship Specialty Start Date End Date Urbano Denis DO [address] [place] [address] PCP - General 09/03/12 03/17/22 documented as of this encounter
--- OUTSIDE RECORDS SUMMARY | 2024-04-04 14:18 | XMS_ITS | Encounter Summary ---
Author Organization Formerly [facility] [place] [address] Care Team Providers Care Cattle Brander Name Role Phone Urbano Denis DO Primary Care Provider Encounter Details Date Type Department Care Team (Late st Contact Info) Description 01/04/2015 Telephone Ne[place] [phone] Urbano Loya MD [facility] [address] Social History Tobacco Use Types Packs/Day Years [...] PM EDT Office Visit Cardiology at [address] [phone] Jay Urban MD [facility] [place] [address] 04/15/2024 10:00 AM EDT Hospital Encounter Non[place] [address] Arrived documented as of this encounter Visit Diagnoses Not on filedocumented in this encounter Care Teams Cattle Brander Relationship Specialty Start Date End Date Urbano Denis DO [address] [place] [address] [address] [place] [address] PCP - General 09/03/12 03/17/22 documented as of this encounter
--- OUTSIDE RECORDS SUMMARY | 2024-04-04 14:18 | XMS_ITS | Encounter Summary ---
Author Organization [facility] [place] [address] Care Team Providers Care Braider Setter Name Role Phone Urbano Denis DO Primary Care Provider Encounter Details Date Type Department Care Team (Late st Contact Info) Description 03/27/2015 Notes Only [place] [address] Aurora Kessler Social History Tobacco Use Types [...] Primary Care Provider URBANO DENIS Dialysis Unit [facility] Dialysis Schedule MON, WED, FRI Work-up @ another Center? YES - [facility] Listed @ another Center NOT YET Patient have computer? Yes - Will complete questionnaire online REQUEST FOR RECORDS FAXED TO [facility]. REQUEST FOR RECORDS FAXED TO PCP. documented in this encounter Plan of Treatment Upcoming Encounters Date Type Department Care Team (Late st Contact Info) Description 04/08/2024 1:40 PM EDT Office Visit Cardiology at [address] [phone] Jay Urban MD [facility] [place] [address] 04/15/2024 10:00 AM EDT Hospital Encounter Non-[place] [address] Arrived documented as of this encounter Visit Diagnoses Not on filedocumented in this encounter Care Teams Braider Setter Relationship Specialty Start Date End Date Urbano Denis DO [address] [facility] [facility] [facility] 1 [place] [address] PCP - General 09/03/12 03/17/22 documented as of this encounter
--- OUTSIDE RECORDS SUMMARY | 2024-04-04 14:18 | XMS_ITS | Encounter Summary ---
Author Organization [facility] [place] [address] Care Team Providers Care Mechanical Handyman Name Role Phone Adeel Urbano KIRBY Primary Care Provider Encounter Details Date Type Department Care Team (Late st Contact Info) Description 07/12/2015 Abstract [place] [address] Aurora Kessler Social History Tobacco [...] PM EDT Office Visit Cardiology at [address] [phone] Jay Urban MD [facility] [place] [address] 04/15/2024 10:00 AM EDT Hospital Encounter Non-[place] [address] Arrived documented as of this encounter Visit Diagnoses Not on filedocumented in this encounter Care Teams Mechanical Handyman Relationship Specialty Start Date End Date Urbano Denis DO [address] [place] [address] PCP - General 09/03/12 03/17/22 documented as of this encounter
--- OUTSIDE RECORDS SUMMARY | 2024-04-04 14:18 | XMS_ITS | Encounter Summary ---
[place] [address] Care Team Providers Care Law Firm Receptionist Name Role Phone Urbano Denis DO Primary Care Provider + [phone] Reason for Referral * Diagnostic Test (Routine) - Closed Specialty Diagnoses / Procedures Referred By Contac t Referred To Contact Diagnoses ESRD (end stage renal disease) Procedures Echo pharm stress test (DSE) Shin Sebastian MD [facility] [place] [address] [facility] [place] [address] Referral ID Status Reason Start Date Expiration Date V isits Requested Visits Authorized [id number] Closed Specialty Service Requested 05/29/2015 05/28/2016 1 1 Reason for Visit * Diagnostic Test (Routine) - Closed Specialty Diagnoses / Procedures Referred By Contac t Referred To Contact Diagnoses ESRD (end stage renal disease) Procedures Echo pharm stress test (DSE) Shin Sebastian MD [facility] [place] [address] [facility] [place] [address] Referral ID Status Reason Start Date Expiration Date V isits Requested Visits Authorized [id number] Closed Specialty Service Requested 05/29/2015 05/28/2016 1 1 Encounter Details Date Type Department Care Team (Latest Contact Info) Description 06/14/2015 9:47 AM EST - 06/14/2015 11:59 PM EST Hospital Encounter Non-Invasive Cardiology Lab [facility] [place] [address] Shin Sebastian MD [facility] [place] [address] ESRD (end stage renal disease) Discharge Disposition: [...] PM EDT Office Visit Cardiology at [address] [address] Jay Urban MD [facility] [place] [address] 04/15/2024 10:00 AM EDT Hospital Encounter Non-[place] [phone] Arrived documented as of this encounter Procedures Procedure Name Priority Date/Time Associated Diagnosis Comments STRESS ECHO W CONTRAST Routine 06/14/2015 11:32 AM EST ESRD (end stage renal disease) documented in this encounter Results * STRESS ECHO W CONTRAST (06/14/2015 11:32 AM EST) EF 60 HEARTSCL SYSTEM Anatomical Region Laterality Modality Other 06/14/2015 Narrative 06/14/2015 12:01 PM EST Procedure: ?Stress Echocardiogram Patient: ?MABLE DAVENPORT P ? (Age): 1950(64y) Med Rec#: ? [id number] ?Sex: ?M ? Site Loc: ? [facility] ?Ht / Wt: ??177(cm)/102(kg) Pt. Loc: ?Echo Lab ?BSA: ?2.19 Study Date: ?? 06/14/2015 ?Pt. Type: Tape: ? Referring: Shin Sebastian ([id number]) Referring: UNKNOWN Reading: Joseph Zuniga ([id number]) Dental Laboratory Supervisor: Chiquis Kelly Nurse: Meka Kim Diagnosis: *ICD-10-PCS End stage renal disease (N18.6) CPT Codes: *Stress Echo (22265) *Color Doppler (40398) *Doppler LTD (85390) *ECG Interpretation (35399) *Definity (51146UU) Stage ? BP ?HR ? Rest ?157/82 [...] E-wave Vmax ?0.5 ?m/sec ? MV deceleration [id number] ?msec ? MV A-wave Vmax ?0.6 ?m/sec [...] ?Normal ?Normal ? Mid-Inferoseptal ?Normal ?Normal ? [place]-Septal ? Normal ?Normal ? [place]-Anterior ? Normal ?Normal ? [place]-Lateral ?Normal ?Normal ? [place]-Inferior ? Normal ?Normal ? [place]-Tip ?Normal ?Normal ? This report has been electronically signed by: Joseph Zuniga M.D. ? 06/14/2015 12:01:18 Images reviewed and interpretation verified [facility] Cardiac Ultrasound Laboratory Procedure Note Joseph Zuniga MD - 06/14/2015 Procedure: Stress Echocardiogram Patient: MABLE Gomez DOB(Age): 1950(64y) Med Rec#: [id number] Sex: M [place] [facility] Ht / Wt: 177(cm)/102(kg) Pt. Loc: Echo Lab BSA: 2.19 Study Date: 06/14/2015 Pt. Type: Tape: Referring: Shin Sebastian ([id number]) Referring: UNKNOWN Reading: Joseph Zuniga ([id number]) Dental Laboratory Supervisor: Chiquis Kelly Nurse: Meka Kim Diagnosis: *ICD-10-PCS End stage renal disease (N18.6) CPT Codes: *Stress Echo (43601) *Color Doppler (68241) *Doppler LTD (26428) *ECG Interpretation (54232) *Definity (97375FA) Stage BP HR Rest 157/82 60 Low [...] MV E-wave Vmax 0.5 m/sec MV deceleration [id number] msec MV A-wave Vmax 0.6 m/sec MV [...] Normal Mid-Inferior Normal Normal Mid-Inferoseptal Normal Normal [place]-Septal Normal Normal [place]-Anterior Normal Normal [place]-Lateral Normal Normal [place]-Inferior Normal Normal [place]-Tip Normal Normal This report has been electronically signed by: Joseph Zuniga M.D. 06/14/2015 12:01:18 Images reviewed and interpretation verified [facility] Cardiac Ultrasound Laboratory Shin Sebastian MD [...] mLs documented in this encounter Care Teams Law Firm Receptionist Relationship Specialty Start Date End Date Urbano Denis DO [facility] [address] [place] [address] PCP - General 09/03/12 03/17/22 documented as of this encounter
--- OUTSIDE RECORDS SUMMARY | 2024-04-04 14:18 | XMS_ITS | Encounter Summary ---
[place] [address] Care Team Providers Care Oracle Applications Analyst Name Role Phone AdeelUrbano toscano Primary Care Provider Reason for Visit * Reason Onset Date Comments Patient Not Seen 04/19/2015 Encounter Details Date Type Department Care Team (Late st Contact Info) Description 04/19/2015 9:40 AM EDT Office Visit Solid [place] [address] Que Amaro MD [facility] [place] [address] PATIENT NOT SEEN Social History Tobacco Use Types Packs/Day Years Used Date Smoking Tobacco: Former Sex and Gender Information Value Date Recorded Sex Assigned at Not on file Gender Identity Not on file Sexual Orientation Not on file documented as of this encounter Progress Notes * Que Amrao MD - 04/19/2015 3:38 PM EDT This patient was not seen in this encounter. This patient was not seen in this encounter. documented in this encounter Plan of Treatment Upcoming Encounters Date Type Department Care Team (Late st Contact Info) Description 04/08/2024 1:40 PM EDT Office Visit Cardiology at [address] [address] aJy Urban MD [facility] [place] [address] 04/15/2024 10:00 AM EDT Hospital Encounter Non-Invasive Cardiology Lab [facility] [place] [phone] Arrived documented as of this encounter Visit Diagnoses Diagnosis PATIENT NOT SEEN documented in this encounter Care Teams Oracle Applications Analyst Relationship Specialty Start Date End Date Urbano Denis DO [address] [place] [address] PCP - General 09/03/12 03/17/22 documented as of this encounter
--- OUTSIDE RECORDS SUMMARY | 2024-04-04 14:19 | XMS_ITS | Encounter Summary ---
Author Organization [facility]ly [facility] [place] [address] Care Team Providers Care Associate Project Manager Name Role Phone Urbano Denis DO Primary Care Provider [phone] Reason for Visit * Reason Comments Other Encounter Details Date Type Department Care Team (Late st Contact Info) Description 02/15/2014 Telephone [place] [address] Urbano Loya MD [facility] [place] [address] Social History Tobacco Use Types Packs/Day Years [...] PM EDT Office Visit Cardiology at [address] [phone] Jay Urban MD [facility] [place] [address] 04/15/2024 10:00 AM EDT Hospital Encounter Non[place] [address] Arrived documented as of this encounter Visit Diagnoses Not on filedocumented in this encounter Care Teams Associate Project Manager Relationship Specialty Start Date End Date Urbano Denis DO [address] [place] [address] PCP - General 09/03/12 03/17/22 documented as of this encounter
--- OUTSIDE RECORDS SUMMARY | 2024-04-04 14:19 | XMS_ITS | Encounter Summary ---
Author Organization Formerly [facility] [place] [place] [address] Care Team Providers Care Pull Worker Name Role Phone Adeel Urbano KIRBY Primary Care Provider [phone] Reason for Visit * Reason Onset Date Comments Medication Refill 07/12/2013 Encounter Details Date Type Department Care Team (Late st Contact Info) Description 07/12/2013 Refill Nephrology [place] [phone] Urbano Loya MD [facility] [place] [address] Social History Tobacco Use Types Packs/Day Years [...] PM EDT Office Visit Cardiology at [address] [phone] Jay Urban MD [facility] [place] [address] 04/15/2024 10:00 AM EDT Hospital Encounter Non-Invasive [place] [phone] Arrived documented as of this encounter Visit Diagnoses Not on filedocumented in this encounter Care Teams Pull Worker Relationship Specialty Start Date End Date Urbano Denis DO [address] [facility] [address] [place] [address] PCP - General 09/03/12 03/17/22 documented as of this encounter
--- OUTSIDE RECORDS SUMMARY | 2024-04-04 14:19 | XMS_ITS | Encounter Summary ---
Author Organization [facility] [place] [address] Care Team Providers Care Carport Erector Name Role Phone Urbano Denis DO Primary Care Provider [phone] Encounter Details Date Type Department Care Team (Late st Contact Info) Description 12/06/2012 11:30 AM EDT Follow-Up Nephrology [place] [address] Urbano Loya MD [facility] [place] [address] Hypertension (Primary Dx); H/O hematuria; Proteinuria; DM [...] 11:25 AM EDT Nephrology/Hypertension Clinic Follow-up Note [id number] ID: 62 y.o.year-old male for follow up [...] UA Negative Appearance UA Clear Clear Spec [place] UA 1.014 1.002 - 1.030 Color UA [...] daily - f/u 3 months CC: URBANO DENIS, @[email or web address]@ documented in this encounter Plan of Treatment Upcoming Encounters Date Type Department Care Team (Late st Contact Info) Description 04/08/2024 1:40 PM EDT Office Visit Cardiology at [address] [phone] Jay Urban MD [facility] [place] [address] 04/15/2024 10:00 AM EDT Hospital Encounter Non-[place] [phone] Arrived documented as of this encounter Procedures [...] Loya MD URINE ORDERABLES Performing Organization Address City/State/[facility] Co de Phone Number CERNER MILLENNIUM * Phosphorus (07/12/2013 10:57 AM EST) Phosphorus 2.8 2.5 - 4.5 mg/dL CERNER MILLENNIUM Blood specimen (specimen) 07/12/2013 10:57 AM EST 07/12/2013 11:06 AM EST Narrative Resulting Agency Comment Spec In Lab Urbano Loya MD CHEMISTRY ORDERABLES Performing Organization Address City/State/[facility] Co de Phone Number BENEDICT PEACOCKIUM * Albumin Level (07/12/2013 10:57 AM EST) Albumin 3.8 3.2 - 5.2 gm/dL CERNER MILLENNIUM Blood specimen (specimen) 07/12/2013 10:57 AM EST 07/12/2013 11:06 AM EST Narrative Resulting Agency Comment Spec In Lab Urbano Loya MD CHEMISTRY ORDERABLES Performing Organization Address [facility] Co de Phone Number BENEDICT PEACOCKIUM * (ABNORMAL) PTH (07/12/2013 10:57 AM EST) Parathyroid Hormone 73(H) 15 - 65 pg/mL CERNER MILLENNIUM Blood specimen (specimen) 07/12/2013 10:57 AM EST 07/12/2013 11:06 AM EST Narrative Resulting Agency Comment Spec In Lab Urbano Loya MD CHEMISTRY ORDERABLES Performing Organization Address [facility] de Phone Number BENEDICT PEACOCKIUM * CBC (with Diff) (07/12/2013 10:57 AM [...] MILLENNIUM * (ABNORMAL) Basic Metabolic Panel (non-fasting) (07/12/2013 [...] Loya MD CHEMISTRY ORDERABLES Performing Organization Address City/[facility]/ZIP Co de Phone Number CERNER MILLENNIUM * [...] Loya MD URINE ORDERABLES Performing Organization Address [facility] Co de Phone Number CERNER MILLENNIUM * [...] Urine Dipstick Clear Clear CERNER MILLENNIUM Specific [place] Urine Automated 1.014 1.002 - 1.030 CERNER MILLENNIUM Color, Urine Dipstick Yellow Yellow CERNER MILLENNIUM Urine specimen (specimen) URINE SPECIMEN OBTAINED BY CLEAN CATCH PROCEDURE / Unknown 12/06/2012 10:51 AM EDT 12/06/2012 10:54 AM EDT Narrative Resulting Agency Comment Spec In Lab Urbano Loya MD URINE ORDERABLES CERNER MILLENNIUM * Differential, Automated (12/06/2012 10:34 AM EDT) [...] EDT Urbano Loya MD HEMATOLOGY ORDERABLE S CERROSALINA MCCLENDONENNIUM * Phosphorus (12/06/2012 10:34 AM EDT) Phosphorus 2.8 2.5 - 4.5 mg/dL CERNER MILLENNIUM Blood specimen (specimen) 12/06/2012 10:34 AM EDT 12/06/2012 10:42 AM EDT Narrative Resulting Agency Comment Spec In Lab Urbano Loya MD CHEMISTRY ORDERABLES Performing Organization Address City/[facility]/ZIP Co de Phone Number CERROSALINA MCCLENDONENNIUM * (ABNORMAL) PTH (12/06/2012 10:34 AM EDT) Pathologist [facility] Parathyroid Hormone 91(H) 15 - 65 pg/mL [facility] MILLEN[facility]UM Blood specimen (specimen) 12/06/2012 10:34 AM EDT 12/06/2012 10:42 AM EDT Narrative Resulting Agency Comment Spec In Lab Urbano Loya MD CHEMISTRY ORDERABLES Performing Organization Address [facility] Co de Phone Number CERROSALINA MCCLENDONENNIUM * Albumin Level (12/06/2012 10:34 AM EDT) Pathologist [facility] Albumin 4.0 3.2 - 5.2 gm/dL [facility] MILLENNIUM Blood specimen (specimen) 12/06/2012 10:34 AM EDT 12/06/2012 10:42 AM EDT Narrative Resulting Agency Comment Spec In Lab Urbano Loya MD CHEMISTRY ORDERABLES CERNER DANELLEENNIUM * CBC (with Diff) (12/06/2012 10:34 AM [...] Metabolic Panel (non-fasting) (12/06/2012 10:34 AM EDT) [facility] Glucose 119 60 - 199 mg/dL [...] (moderate) documented in this encounter Care Teams Carport Erector Relationship Specialty Start Date End Date Urbano Denis DO [address] [place] [address] PCP - General 09/03/12 03/17/22 documented as of this encounter
--- OUTSIDE RECORDS SUMMARY | 2024-04-04 14:19 | XMS_ITS | Encounter Summary ---
Author Organization [facility] [address] Care Team Providers Care Bending Machine Set Up Operator Name Role Phone [place] Denis DO Primary Care Provider Encounter Details Date Type Department Care Team (Late st Contact Info) Description 10/27/2013 10:00 AM EDT Follow-Up Nephrology [place] [address] CLINIC, [place] Milian MD [facility] [address] CKD (chronic kidney disease) stage 3, GFR [...] Progress Notes * [place]ia Loya MD - 10/27/2013 10:05 AM EDT Nephrology/Hypertension Clinic Follow-up Note [id number] ID: 63 y.o.year-old male for follow up [...] frankly nephrotic will discuss renal biopsy. CC: ALBANIA DENIS DO @[email or web address]@ documented in this encounter Plan of Treatment Upcoming Encounters Date Type Department Care Team (Late st Contact Info) Description 04/08/2024 1:40 PM EDT Office Visit Cardiology at [address] [phone] Jay Urban MD [facility] [place] [address] 04/15/2024 10:00 AM EDT Hospital Encounter Non-[place] [address] Arrived documented as of this [...] Urine Dipstick Hazy(A) Clear CERNER MILLENNIUM Specific [place] Urine Automated 1.015 1.002 - 1.030 CERROSALINA MILLENNIUM Color, Urine Dipstick Yellow Yellow CERROSALINA MILLENNIUM Urine specimen (specimen) URINE SPECIMEN OBTAINED BY CLEAN CATCH PROCEDURE / Unknown 05/22/2014 10:16 AM EST 05/22/2014 10:25 AM EST Narrative Resulting Agency Comment Spec In Lab [place] Loya MD URINE ORDERABLES BENEDICT PEACOCKIUM * Cholesterol, total (05/22/2014 10:13 AM EST) Cholesterol, Total 166 <=199 mg/dL BENEDICT DANELLEBANNER MD [facility] Comment: Recommendations of the NCEP Adult Treatment Panel for the following risk cutoff thresholds for the [place] population: Desirable: <200 mg/dL Borderline High: 200-239 mg/dL High: > or = 240 mg/dL Blood specimen (specimen) 05/22/2014 10:13 AM EST 05/22/2014 10:22 AM EST Narrative Resulting Agency Comment Spec In Lab [place] Loya MD CHEMISTRY ORDERABLES Performing Organization Address City/[facility] Co de Phone Number BENEDICT COOK * Hemoglobin A1c (05/22/2014 10:13 AM EST) Hemoglobin A1c 5.6 <=5.6 % SONJA Sheth DANELLEJACKIUM Comment: Reference Range: 4.3 - 5.6% 5.7 [...] 36: Suppl. 1, S67-74 Estimated Average Glucose 114 mg/dL [facility] Comment: eAG equivalents for HbA1c percentages: HbA1c(%) ?eAG(mg/dL) 6.0 ?126 6.5 ?140 7.0 ?154 7.5 ?169 8.0 ?183 8.5 ?197 9.0 ?212 9.5 ?226 10.0 ? 240 Limitations: The eAG calculation has not been validated on women, individuals below 18 years old and above 70 years old, and individuals with hemoglobinopathies. Additional resources are available on the ADA website: http://Poachable/DHMCadacalc Harjeet MENDOSA, Chanel J, Philip R, et al. ??Translating the A1C assay into estimated average glucose values. ??Diabetes Care 2008:31(8):3551-5170. Blood specimen (specimen) 05/22/2014 10:13 AM EST 05/22/2014 10:22 AM EST Narrative Resulting Agency Comment Spec In Lab [place] Loya MD CHEMISTRY ORDERABLES Performing Organization Address [facility] de Phone Number [facility] * Phosphorus (05/22/2014 10:13 AM EST) Phosphorus 3.7 2.5 - 4.5 mg/dL [facility] Blood specimen (specimen) 05/22/2014 10:13 AM EST 05/22/2014 10:22 AM EST Narrative Resulting Agency Comment Spec In Lab [place] Loya MD CHEMISTRY ORDERABLES Performing Organization Address [facility] de Phone Number [facility] * Albumin Level (05/22/2014 10:13 AM EST) Albumin 3.5 3.2 - 5.2 gm/dL CERNER MILLENNIUM Blood specimen (specimen) 05/22/2014 10:13 AM EST 05/22/2014 10:22 AM EST Narrative Resulting Agency Comment Spec In Lab [place] Loya MD CHEMISTRY ORDERABLES CERNER MILLENNIUM * (ABNORMAL) PTH (05/22/2014 10:13 AM EST) Parathyroid Hormone 153(H) 15 - 65 pg/mL CERNER MILLENNIUM Blood specimen (specimen) 05/22/2014 10:13 AM EST 05/22/2014 10:22 AM EST Narrative Resulting Agency Comment Spec In Lab [place] Loya MD CHEMISTRY ORDERABLES Performing Organization Address City/[facility] Co de Phone Number CERNER MILLENNIUM * (ABNORMAL) Basic Metabolic Panel (non-fasting) (05/22/2014 [...] the following links into your internet browser. http://[email or web address]/DHnkdep [email or web address]/[email or web address] Blood specimen (specimen) 05/22/2014 10:13 AM EST 05/22/2014 10:22 AM EST Narrative Resulting Agency Comment Spec In Lab [place] Loya MD CHEMISTRY ORDERABLES Performing Organization Address [facility] de Phone Number CERNER MILLENNIUM * (ABNORMAL) [...] Loya MD URINE ORDERABLES Performing Organization Address [facility] Co de Phone Number CERNER MILLENNIUM [...] MILLENNIUM Monocyte Abs 0.5 0.2 - 1.0 x10(3)/[facility] CERNER MILLENNIUM Eos % 3.5 0.0 - 7.0 % CERNER MILLENNIUM Eosinophils Abs 0.3 0.0 - 0.5 x10(3)/mcL CERNER MILLENNIUM Basophil % 0.7 0.0 - 2.0 % CERNER MILLENNIUM Baso Absolute 0.1 0.0 - 0.2 x10(3)/[facility] CERNER MILLENNIUM Immature Gran % 0.10 0.00 - 0.66 % CERNER MILLENNIUM Comment: Immature granulocytes(IG's)percentage and absolute count will include metamyelocytes, myelocytes, and promyelocytes. Blood smears from CBCs yielding IG's will be scanned manually for concordance. If this scan disagrees with the automated IG or if promyelocytes are noted, a manual differential will be performed. Immature Gran Absolute 0.01 0.00 - 0.05 x10(3)/[facility] BENEDICT MCCLENDONENNIUM Blood specimen (specimen) 10/27/2013 9:37 AM EDT 10/27/2013 9:45 AM EDT [place] Loya MD HEMATOLOGY ORDERABLE S BENEDICT COOK * (ABNORMAL) Hemoglobin A1c (10/27/2013 9:37 AM EDT) Hemoglobin A1c 6.2(H) <=5.6 % SONJA Sheth DANELLEJACKIUM Comment: As of 2013 the methodology for [...] 36: Suppl. 1, S67-74 Estimated Average Glucose 131 mg/dL [facility] Comment: eAG equivalents for HbA1c percentages: [...] into estimated average glucose values. ??Diabetes Care 2008:31(8):6700-7757. Blood specimen (specimen) 10/27/2013 9:37 AM EDT 10/27/2013 9:45 AM EDT Narrative Resulting Agency Comment Spec In Lab [place] Loya MD CHEMISTRY ORDERABLES [facility] * (ABNORMAL) VIT D Total Evaluation (10/27/2013 9:37 AM EDT) Vitamin D Total 25 OH 20(L) 30 - 100 ng/mL [facility] Comment: Deficient <10 ng/mL Insufficient 10 [...] Loya MD CHEMISTRY ORDERABLES Performing Organization Address [facility] de Phone Number [facility] * Phosphorus (10/27/2013 9:37 AM EDT) Phosphorus 3.1 2.5 - 4.5 mg/dL [facility] Blood specimen (specimen) 10/27/2013 9:37 AM EDT 10/27/2013 9:45 AM EDT Narrative Resulting Agency Comment Spec In Lab [place] Loya MD CHEMISTRY ORDERABLES Performing Organization Address [facility] de Phone Number [facility] * Albumin Level (10/27/2013 9:37 AM EDT) Albumin 3.5 3.2 - 5.2 gm/dL [facility] Blood specimen (specimen) 10/27/2013 9:37 AM EDT 10/27/2013 9:45 AM EDT Narrative Resulting Agency Comment Spec In Lab [place] Loya MD CHEMISTRY ORDERABLES Performing Organization Address [facility] Co de Phone Number [facility] * (ABNORMAL) PTH (10/27/2013 9:37 AM EDT) Parathyroid Hormone 95(H) 15 - 65 pg/mL CERNER MILLENNIUM Blood specimen (specimen) 10/27/2013 9:37 AM EDT 10/27/2013 9:45 AM EDT Narrative Resulting Agency Comment Spec In Lab [place] Loya MD CHEMISTRY ORDERABLES Performing Organization Address City/[facility]/ZIP Co de Phone Number CERROSALINA MCCLENDONENNIUM * [...] [place] Loya MD HEMATOLOGY ORDERABLE S CERROSALINA PEACOCKIUM * (ABNORMAL) Basic Metabolic Panel (non-fasting) (10/27/2013 [...] In Lab [place] Loya MD CHEMISTRY ORDERABLES CERROSALINA COOK documented in [...] unspecified documented in this encounter Care Teams Bending Machine Set Up Operator Relationship Specialty Start Date End Date [place]ia Denis DO [address] [place] [address] PCP - General 09/03/12 03/17/22 documented as of this encounter
--- OUTSIDE RECORDS SUMMARY | 2024-04-04 14:19 | XMS_ITS | Encounter Summary ---
Author Organization [facility] [place] [address] Care Team Providers Care A Operator Name Role Phone Urbano Denis DO Primary Care Provider [phone] Encounter Details Date Type Department Care Team (Latest Contact Info) Description 10/27/2013 8:30 AM EDT - 10/27/2013 11:59 PM EDT Hospital En[place] [address] Hypertension; H/O hematuria; Proteinuria; DM type 2 [...] PM EDT Office Visit Cardiology at [address] [phone] Jay Urban MD [facility] [place] [address] 04/15/2024 10:00 AM EDT Hospital Encounter [place] [phone] Arrived documented as of this encounter Procedures [...] 10/27/2013 10:25 am) Patient Info ID: ? [id number] ? : [birth year] (63 yrs) Name: ? ETHEL AKINS ? Visit Date: 10/27/2013 09:11 am Performed By Performed By: ?Leigha MCGRATH, Amanda Associate: ? Kameron Holloway MD Attending: ? Jewel GERBER, Preeti Sanford Referred By: ? URBANO LOYA MD Service(s) Provided URETRO - Retroperitoneal Complete - [id number] ? [id number] Indications 62 year old male with microhematuria [...] Final 10/27/2013 10:25 am) Patient Info ID: [id number] : [birth year] (63 yrs) Name: ETHEL AKINS Visit Date: 10/27/2013 09:11 am Performed By Performed By: Amanda Ahuja RDMS Associate: Kameron Holloway MD Attending: Preeti Holloway MD Referred By: URBANO LOYA MD Service(s) Provided URETRO - Retroperitoneal Complete - [id number] Indications 62 year old male with microhematuria [...] unspecified documented in this encounter Care Teams A Operator Relationship Specialty Start Date End Date Urbano Denis DO [address] [place] [address] PCP - General 09/03/12 03/17/22 documented as of this encounter
--- OUTSIDE RECORDS SUMMARY | 2024-04-04 14:19 | XMS_ITS ---
[place] [address] Care Team Providers Care Melter Supervisor Name Role Phone Urbano Jimenez DO Primary Care Provider [phone] Transplant Episode Kidney Recipient [facility] ([place], [place]) - [facility] Organ Received: Right Kidney Transplanted on 09/16/2015 [...] Coordinator N/A N/A N/A Jomar Franco MD Restaurant Line Server Referring Physician N/A N/A N/A Urbano Denis DO PCP N/A N/A N/A Events Post-Transplant Pre-Transplant Admitted: 09/16/2015 Referred: 01/15/2015 Transplanted: 09/16/2015 Evaluation began: 5 Discharged: 09/20/2015 [facility]OS qualified: 01/11/2015 Center waitlisted: 6 Dialysis History Dialysis History Start End Type Comments Center 01/11/2015 MON, WED, [facility] Dialysis Center Information Center Phone Fax Address [facility] [phone] [place] [address] [place] [address]
--- OUTSIDE RECORDS SUMMARY | 2024-04-04 14:19 | XMS_ITS | Encounter Summary ---
Author Organization [facility] [place] [address] Care Team Providers Care Urban Forester Name Role Phone Urbano Denis DO Primary Care Provider Encounter Details Date Type Department Care Team (Late st Contact Info) Description 05/24/2014 External Results [place] [phone] Social History Tobacco Use Types Packs/Day Years [...] PM EDT Office Visit Cardiology at [address] [phone] Jay Urban MD [facility] [place] [address] 04/15/2024 10:00 AM EDT Hospital Encounter Non-Invasive [place] [phone] Arrived documented as of this encounter Procedures Procedure Name Priority Date/Time Associated Diagnosis Comments LAB SCAN Routine 05/11/2014 LAB SCAN Routine 05/11/2014 LAB SCAN Routine 05/02/2014 LAB SCAN Routine 04/26/2014 documented in this encounter Results * Scan Doc: Lab (05/11/2014) Historical Provider MD MEDIA MGR SCAN EX T ORDR/RSLT * Scan Doc: Lab (05/11/2014) Historical Provider MD MEDIA MGR SCAN EX T ORDR/RSLT * Scan Doc: Lab (05/02/2014) Historical Provider MD MEDIA MGR SCAN EX T ORDR/RSLT * Scan Doc: Lab (04/26/2014) Historical Provider MD MEDIA MGR SCAN EX T ORDR/RSLT documented in this encounter Visit Diagnoses Not on filedocumented in this encounter Care Teams Urban Forester Relationship Specialty Start Date End Date Urbano Denis DO [address] [place] [address] PCP - General 09/03/12 03/17/22 documented as of this encounter
--- OUTSIDE RECORDS SUMMARY | 2024-04-04 14:19 | XMS_ITS | Encounter Summary ---
Author Organization [facility] [place] [address] Care Team Providers Care Supervisor Litharge Name Role Phone Urbano Denis DO Primary Care Provider Reason for Visit * Reason Onset Date Comments Medication Refill 02/21/2014 Encounter Details Date Type Department Care Team (Late st Contact Info) Description 02/21/2014 Refill Solid [place] [phone] Urbano Loya MD [facility] [place] [address] Social History Tobacco Use Types Packs/Day Years [...] PM EDT Office Visit Cardiology at [address] [phone] Jay Urban MD [facility] [place] [address] 04/15/2024 10:00 AM EDT Hospital Encounter Non-[place] [phone] Arrived documented as of this encounter Visit Diagnoses Not on filedocumented in this encounter Care Teams Supervisor Litharge Relationship Specialty Start Date End Date Urbano Denis DO [address] [facility] [address] [facility] [address] [place] [address] PCP - General 09/03/12 03/17/22 documented as of this encounter
--- OUTSIDE RECORDS SUMMARY | 2024-04-04 14:19 | XMS_ITS | Encounter Summary ---
Author Organization [facility] [place] [address] Care Team Providers Care Floor Tiling Professional Name Role Phone Urbano Denis DO Primary Care Provider Encounter Details Date Type Department Care Team (Latest Contact Info) Description 09/03/2012 10:00 AM EST Office Visit Ne[place] [address] Urbano Loya MD [facility] [place] [address] Hypertension (Primary Dx); H/O hematuria; Proteinuria; DM [...] 10:26 AM EST Hypertension/Nephrology Consultation Ethel Akins [phone] ID: [id number] y.o. old male seen [...] No Known Allergies Family History: Father of [place], brother of sarcoma. Social History: , smokes [...] this interesting patient. >the total time spent ulza-cy-fohy AND total time the provider spent counseling was xxx minutes. Please CC to: Urbano Denis, @[email or web address]@ documented in this encounter Plan of Treatment Upcoming Encounters Date Type Department Care Team (Late st Contact Info) Description 04/08/2024 1:40 PM EDT Office Visit Cardiology at [address] [phone] Jay Urban MD [facility] [place] [address] 04/15/2024 10:00 AM EDT Hospital Encounter Non-Invasive [place] [address] Arrived documented as of this encounter Procedures [...] Lab Urbano Loya MD URINE ORDERABLES CERNER eMotion TechnologiesENNIUM * (ABNORMAL) Urinalysis without microscopic (12/06/2012 10:51 [...] Urine Dipstick Clear Clear CERNER MILLENNIUM Specific [place] Urine Automated 1.014 1.002 - 1.030 CERNER MILLENNIUM Color, Urine Dipstick Yellow Yellow CERNER MILLENNIUM Urine specimen (specimen) URINE SPECIMEN OBTAINED BY CLEAN CATCH PROCEDURE / Unknown 12/06/2012 10:51 AM EDT 12/06/2012 10:54 AM EDT Narrative Resulting Agency Comment Spec In Lab Urbano Loya MD URINE ORDERABLES BENEDICT MCCLENDONENNIUM * Phosphorus (12/06/2012 10:34 AM EDT) Phosphorus 2.8 2.5 - 4.5 mg/dL CERROSALINA MCCLENDONENNIUM Blood specimen (specimen) 12/06/2012 10:34 AM EDT 12/06/2012 10:42 AM EDT Narrative Resulting Agency Comment Spec In Lab Urbano Loya MD CHEMISTRY ORDERABLES BENEDICT PEACOCKIUM * (ABNORMAL) PTH (12/06/2012 10:34 AM EDT) Parathyroid Hormone 91(H) 15 - 65 pg/mL CERROSALINA MCCLENDONENNIUM Blood specimen (specimen) 12/06/2012 10:34 AM EDT 12/06/2012 10:42 AM EDT Narrative Resulting Agency Comment Spec In Lab Urbano Loya MD CHEMISTRY ORDERABLES BENEDICT MCCLENDONENNIUM * Albumin Level (12/06/2012 10:34 AM EDT) Albumin 4.0 3.2 - 5.2 gm/dL CERROSALINA MCCLENDONENNIUM Blood specimen (specimen) 12/06/2012 10:34 AM EDT 12/06/2012 10:42 AM EDT Narrative Resulting Agency Comment Spec In Lab Urbano Loya MD CHEMISTRY ORDERABLES Performing Organization Address City/[facility]/ZIP Co de Phone Number CERROSALINA PEACOCKIUM * CBC (with Diff) (12/06/2012 10:34 AM [...] MD HEMATOLOGY ORDERABLE S Performing Organization Address City/[facility]/ZIP Co de Phone Number BENEDICT COOK * (ABNORMAL) Basic Metabolic Panel (non-fasting) (12/06/2012 10:34 AM EDT) Pathologist [facility] Glucose 119 60 - 199 mg/dL CERNER MILLENNIUM Comment:Diabetes: >=200 mg/d L plus symptoms Blood Urea Nitrogen 28(H) 10 - 20 mg/dL CERNER MILLENNIUM Creatinine 1.68(H) 0.80 - 1.50 mg/dL CERNER MILLENNIUM Comment: Please note that the pediatric reference intervals supplied above were not validated at [facility]. Results from pediatric patients should [...] Gran Absolute 0.01 0.00 - 0.05 x10(3)/mcL ADELINANER DANELLEENNIUM Blood specimen (specimen) 09/03/2012 11:06 AM EST 09/03/2012 11:15 AM EST Urbano Loya MD HEMATOLOGY ORDERABLE S Performing Organization Address City/[facility] de Phone Number BEENDICT COOK * Phosphorus (09/03/2012 11:06 AM EST) Phosphorus 2.7 2.5 - 4.5 mg/dL BENEDICT PEACOCKIUM Blood specimen (specimen) 09/03/2012 11:06 AM EST 09/03/2012 11:15 AM EST Narrative Resulting Agency Comment Spec In Lab Urbano Loya MD CHEMISTRY ORDERABLES Performing Organization Address City/[facility] Co de Phone Number BENEDICT PEACOCKIUM * Albumin Level (09/03/2012 11:06 AM EST) Albumin 3.8 3.2 - 5.2 gm/dL BENEDICT MCCLENDONENNIUM Blood specimen (specimen) 09/03/2012 11:06 AM EST 09/03/2012 11:15 AM EST Narrative Resulting Agency Comment Spec In Lab Urbano Loya MD CHEMISTRY ORDERABLES Performing Organization Address [facility] Co de Phone Number CERROSALINA MCCLENDONENNIUM * CBC (with Diff) (09/03/2012 11:06 AM EST) White Blood Cell 8.8 4.0 - 10.0 [...] MD HEMATOLOGY ORDERABLE S Performing Organization Address City/[facility] Co de Phone Number CERROSALINA PEACOCKIUM * (ABNORMAL) Basic Metabolic Panel (non-fasting) (09/03/2012 11:06 AM EST) Glucose 93 60 - 199 mg/dL CERNER MILLENNIUM Comment:Diabetes: >=200 mg/d L plus symptoms Blood Urea Nitrogen 31(H) 10 - 20 mg/dL CERNER MILLENNIUM Creatinine 1.58(H) 0.80 - 1.50 mg/dL CERNER MILLENNIUM Comment: Please note that the pediatric reference intervals supplied above were not validated at [facility]. Results from pediatric patients should [...] Loya MD CHEMISTRY ORDERABLES Performing Organization Address City/[facility]/ZIP Co de Phone Number [place] * (ABNORMAL) Protein/Creatinine Ratio, urine (09/03/2012 10:30 AM EST) Creatinine, Urine 135 mg/dL CERNER MILLENNIUM Protein, Urine 457(H) 0 - 12 mg/dL CERNER MILLENNIUM Protein / Creatinine Ratio, Urine 3.4 ratio CERNER MILLENNIUM Urine specimen (specimen) 09/03/2012 10:30 AM EST 09/03/2012 10:42 AM EST Narrative Resulting Agency Comment Spec In Lab Urbano Loya MD URINE ORDERABLES Performing Organization Address City/State/[facility] Co de Phone Number BENEDICT [employer] documented in this encounter Visit Diagnoses Diagnosis [...] (moderate) documented in this encounter Care Teams Floor Tiling Professional Relationship Specialty Start Date End Date Urbano Denis DO [address] [place] [address] PCP - General 09/03/12 03/17/22 documented as of this encounter
--- OUTSIDE RECORDS SUMMARY | 2024-04-04 14:19 | XMS_ITS | Encounter Summary ---
Author Organization [facility] [place] [address] Care Team Providers Care Kiln Setter Name Role Phone AdeelUrbano toscano Primary Care Provider Encounter Details Date Type Department Care Team (Late st Contact Info) Description 04/26/2014 Orders [place] [address] Joseph Cortés MD [facility] [place] [address] Social History Tobacco Use Types Packs/Day Years [...] PM EDT Office Visit Cardiology at [address] [phone] Jay Urban MD [facility] [place] [address] 04/15/2024 10:00 AM EDT Hospital Encounter Non[place] [address] Arrived documented as of this [...] is a Non-reportable exam Joseph Cortés MD IMG FILM LIBRARY O RDERABLES documented in this encounter Visit Diagnoses Not on filedocumented in this encounter Care Teams Kiln Setter Relationship Specialty Start Date End Date Urbano Denis DO [address] [place] [address] PCP - General 09/03/12 03/17/22 documented as of this encounter
--- OUTSIDE RECORDS SUMMARY | 2024-04-04 14:19 | XMS_ITS | Encounter Summary ---
Author Organization [facility] [place] [address] Care Team Providers Care Blueprint Cutter Name Role Phone AdeelUrbano toscano Primary Care Provider Encounter Details Date Type Department Care Team (Late st Contact Info) Description 05/11/2014 [place] [phone] Joseph Cortés MD [facility] [place] [address] Social History Tobacco Use Types Packs/Day Years [...] PM EDT Office Visit Cardiology at [address] [phone] Jay Urban MD [facility] [place] [place] [address] 04/15/2024 10:00 AM EDT Hospital Encounter Non-Invasive [place] [address] Arrived documented as of this [...] on filedocumented in this encounter Care Teams Blueprint Cutter Relationship Specialty Start Date End Date Urbano Denis DO [address] [place] [address] PCP - General 09/03/12 03/17/22 documented as of this encounter
--- OUTSIDE RECORDS SUMMARY | 2024-04-04 14:19 | XMS_ITS | Encounter Summary ---
Author Organization [facility] [place] [address] Care Team Providers Care Bee Worker Name Role Phone Urbano Denis DO Primary Care Provider Reason for Visit * Reason Onset Date Comments Medication Refill 02/20/2014 Encounter Details Date Type Department Care Team (Late st Contact Info) Description 02/20/2014 Refill [place] [phone] Urbano Loya MD [facility] [place] [address] Hypertension (Primary Dx) Social History Tobacco Use [...] PM EDT Office Visit Cardiology at [address] [phone] Jay Urban MD [facility] [place] [address] 04/15/2024 10:00 AM EDT Hospital Encounter Non-[place] [address] Arrived documented as of this encounter Visit Diagnoses Diagnosis Hypertension- Primary Unspecified essential hypertension documented in this encounter Care Teams Bee Worker Relationship Specialty Start Date End Date Urbano Denis DO [address] [place] [address] PCP - General 09/03/12 03/17/22 documented as of this encounter
--- OUTSIDE RECORDS SUMMARY | 2024-04-04 14:19 | XMS_ITS | Encounter Summary ---
Author Organization [facility] [place] [address] Care Team Providers Care Filler Shredder Machine Name Role Phone AdeelUrbano toscano Primary Care Provider Encounter Details Date Type Department Care Team (Late st Contact Info) Description 05/02/2014 Orders [place] [address] Joseph Cortés MD [facility] [place] [address] Social History Tobacco Use Types Packs/Day Years [...] PM EDT Office Visit Cardiology at [address] [phone] Jay Urban MD [facility] [place] [address] 04/15/2024 10:00 AM EDT Hospital Encounter Non-Invasive [place] [address] Arrived documented as of this [...] filedocumented in this encounter Care Teams Filler Shredder Machine Relationship Specialty Start Date End Date Urbano Denis DO [address] [place] [address] PCP - General 09/03/12 03/17/22 documented as of this encounter
--- OUTSIDE RECORDS SUMMARY | 2024-04-04 14:19 | XMS_ITS | Encounter Summary ---
Author Organization [facility] [place] [address] Care Team Providers Care Diathermy Equipment Repairer Name Role Phone Albania Denis DO Primary Care Provider Encounter Details Date Type Department Care Team (Late st Contact Info) Description 07/12/2013 11:30 AM EST Follow-Up Ne[place] [address] Albania Schmid MD [facility] [place] [address] CKD (chronic kidney disease) stage 3, GFR [...] 12:03 PM EST Nephrology/Hypertension Clinic Follow-up Note [id number] ID: 62 y.o.year-old male for follow up [...] PM EDT Office Visit Cardiology at [address] [phone] Jay Urban MD [facility] [place] [address] 04/15/2024 10:00 AM EDT Hospital Encounter Non-Invasive [place] [address] Arrived documented as of this [...] 9:39 AM EDT) Creatinine, Urine 121 mg/dL [employer] Protein, Urine 575(H) 0 - 12 mg/dL CERNER MILLENNIUM Protein / Creatinine Ratio, Urine 4.8 ratio [facility] MILLENNIUM Urine specimen (specimen) 10/27/2013 9:39 AM EDT 10/27/2013 9:44 AM EDT Narrative Resulting Agency Comment Spec In Lab Albania Schmid MD URINE ORDERABLES [facility] [employer] * (ABNORMAL) Hemoglobin A1c (10/27/2013 9:37 AM EDT) Hemoglobin A1c 6.2(H) <=5.6 % SONJA Sheth [facility] Comment: As of 2013 the methodology for [...] Mellitus, Diabetes Care 2013; 36: Suppl. 1, P97-35 Estimated Average Glucose 131 mg/dL [facility] Comment: eAG equivalents for HbA1c [...] into estimated average glucose values. ??Diabetes Care 2008:31(8):2300-8614. Blood specimen (specimen) 10/27/2013 9:37 AM EDT 10/27/2013 9:45 AM EDT Narrative Resulting Agency Comment Spec In Lab Albania Schmid MD CHEMISTRY ORDERABLES Performing Organization Address [facility] de Phone Number [facility] * (ABNORMAL) VIT D Total Evaluation (10/27/2013 9:37 AM EDT) Vitamin D Total 25 OH 20(L) 30 - 100 ng/mL [facility] Comment: Deficient <10 ng/mL Insufficient 10 to [...] Schmid MD CHEMISTRY ORDERABLES Performing Organization Address [facility] de Phone Number [facility] * Phosphorus (10/27/2013 9:37 AM EDT) Phosphorus 3.1 2.5 - 4.5 mg/dL [facility] Blood specimen (specimen) 10/27/2013 9:37 AM EDT 10/27/2013 9:45 AM EDT Narrative Resulting Agency Comment Spec In Lab Albania Schmid MD CHEMISTRY ORDERABLES Performing Organization Address [facility] Co de Phone Number [facility] * Albumin Level (10/27/2013 9:37 AM EDT) Albumin 3.5 3.2 - 5.2 gm/dL [facility] Blood specimen (specimen) 10/27/2013 9:37 AM EDT 10/27/2013 9:45 AM EDT Narrative Resulting Agency Comment Spec In Lab Albania Schmid MD CHEMISTRY ORDERABLES Performing Organization Address [facility] Co de Phone Number [facility] * (ABNORMAL) PTH (10/27/2013 9:37 AM EDT) Parathyroid Hormone 95(H) 15 - 65 pg/mL [facility] Blood specimen (specimen) 10/27/2013 9:37 AM EDT 10/27/2013 9:45 AM EDT Narrative Resulting Agency Comment Spec In Lab Albania Schmid MD CHEMISTRY ORDERABLES Performing Organization Address [facility] de Phone Number [facility] * CBC (with Diff) (10/27/2013 [...] Albania Schmid MD HEMATOLOGY ORDERABLE S [facility] * (ABNORMAL) Basic Metabolic Panel (non-fasting) (10/27/2013 9:37 AM EDT) Glucose 95 60 - 199 mg/dL [facility] Comment:Diabetes: >=200 mg/d L plus symptoms Blood Urea Nitrogen 39(H) 10 - 20 mg/dL [facility] Creatinine 2.05(H) 0.80 - 1.50 mg/dL [facility] Comment: Please note that the pediatric reference intervals supplied above were not validated at [facility] [place] Results from [...] Lab Albania Schmid MD CHEMISTRY ORDERABLES [facility] * US retroperitoneal complete (10/27/2013 9:15 AM EDT) Anatomical Region Laterality Modality Abdomen Ultrasound 10/27/2013 9:15 AM EDT Narrative 10/27/2013 10:26 AM EDT ? Renal ? (Signed Final 10/27/2013 10:25 am) Patient Info ID: ? [id number] ? : [birth year] (63 yrs) Name: ? ETHEL AKINS ? Visit Date: 10/27/2013 09:11 am Performed By Performed By: ?Amanda Ahuja RDMS Associate: ? Kameron Holloway MD Attending: ? Preeti Holloway MD Referred By: ? ALBANIA SCHMID MD Service(s) Provided URETRO - Retroperitoneal Complete - [id number] ? [id number] Indications 62 year old male with microhematuria [...] Final 10/27/2013 10:25 am) Patient Info ID: [id number] : [birth year] (63 yrs) Name: ETHEL AKINS Visit Date: 10/27/2013 09:11 am Performed By Performed By: Amanda Ahuja RDMS Associate: Kameron Holloway MD Attending: Preeti Holloway MD Referred By: ALBANIA SCHMID MD Service(s) Provided URETRO - Retroperitoneal Complete - [id number] [id number] Indications 62 year old male with microhematuria [...] MD HEMATOLOGY ORDERABLE S Performing Organization Address City/[facility] Co de Phone Number [facility] * (ABNORMAL) Protein/Creatinine Ratio, urine (07/12/2013 10:57 AM EST) Creatinine, Urine 211 mg/dL [facility] Protein, Urine 555(H) 0 - 12 mg/dL [facility] Protein / Creatinine Ratio, Urine 2.6 ratio [facility] M[facility]NI[facility] Urine specimen (specimen) 07/12/2013 10:57 AM EST 07/12/2013 11:06 AM EST Narrative Resulting Agency Comment Spec In Lab Albania Schmid MD URINE ORDERABLES Performing Organization Address [facility] Co de Phone Number [facility] * Phosphorus (07/12/2013 10:57 AM EST) Phosphorus 2.8 2.5 - 4.5 mg/dL [facility]ERR[facility]CCLENDON[facility]NIUM Blood specimen (specimen) 07/12/2013 10:57 AM EST 07/12/2013 11:06 AM EST Narrative Resulting Agency Comment Spec In Lab Albania Schmid MD CHEMISTRY ORDERABLES Performing Organization Address [facility] Co de Phone Number [facility] * Albumin Level (07/12/2013 10:57 AM EST) Albumin 3.8 3.2 - 5.2 gm/dL [facility] Blood specimen (specimen) 07/12/2013 10:57 AM EST 07/12/2013 11:06 AM EST Narrative Resulting Agency Comment Spec In Lab Albania Schmid MD CHEMISTRY ORDERABLES [facility] * (ABNORMAL) PTH (07/12/2013 10:57 AM EST) Parathyroid Hormone 73(H) 15 - 65 pg/mL [facility] Blood specimen (specimen) 07/12/2013 10:57 AM EST 07/12/2013 11:06 AM EST Narrative Resulting Agency Comment Spec In Lab Albania Schmid MD CHEMISTRY ORDERABLES Performing Organization Address City/[facility]/ZIP Co de Phone Number [facility]ER M[facility]ENNI[facility] * CBC (with Diff) (07/12/2013 10:57 AM [...] Albania Schmid MD HEMATOLOGY ORDERABLE S [facility] * (ABNORMAL) Basic Metabolic Panel (non-fasting) (07/12/2013 10:57 AM EST) [facility] Glucose 157 60 - 199 mg/dL [facility]NI[facility] Comment:Diabetes: >=200 mg/d L plus symptoms Blood Urea Nitrogen 28(H) 10 - 20 mg/dL [facility] Creatinine 1.86(H) 0.80 - 1.50 mg/dL [facility] Comment: Please note that the pediatric reference intervals supplied above were not validated [place] [facility] [place] Results from [...] Lab Albania Schmid MD CHEMISTRY ORDERABLES BENEDICT COOK documented in [...] unspecified documented in this encounter Care Teams Diathermy Equipment Repairer Relationship Specialty Start Date End Date Albania Denis DO [address] [place] [address] PCP - General 09/03/12 03/17/22 documented as of this encounter
--- OUTSIDE RECORDS SUMMARY | 2024-04-04 14:19 | XMS_ITS | Encounter Summary ---
Author Organization [facility] [place] [address] Care Team Providers Care Draw Off Worker Name Role Phone Albania Denis DO Primary Care Provider [phone] Encounter Details Date Type Department Care Team (Late st Contact Info) Description 05/22/2014 11:00 AM EST Follow-Up Ne[place] [address] Albania Schmid MD [facility] [place] [address] CKD (chronic kidney disease) stage 3, GFR [...] 11:29 AM EST Nephrology/Hypertension Clinic Follow-up Note [id number] ID: 63 y.o.year-old male for follow up [...] 0.12 % [place] 0 ??? FLUZONE QUAD 1132-8089, PF, 60 mcg (15 mcg x 4)/0.5 [...] - 0.2 x10(3)/mcL Immature Gran % 0.10 Yaesha Gran Abs 0.01 0.00 - 0.05 x10(3)/mcL [...] mcL Appearance UA Hazy (*) Clear Spec Lacey UA 1.015 1.002 - 1.030 Color UA [...] PM EDT Office Visit Cardiology at [address] [phone] Jay Urban MD [facility] [place] [address] 04/15/2024 10:00 AM EDT Hospital Encounter Non-Invasive [place] [address] Arrived documented as of this [...] Schmid MD URINE ORDERABLES Performing Organization Address [facility]/ZIP Co de Phone Number CERNER MILLENNIUM [...] Schmid MD URINE ORDERABLES Performing Organization Address [facility] de Phone Number CERNER MILLENNIUM * Protein Electrophoresis, serum (07/11/2014 [...] Schmid MD CHEMISTRY ORDERABLES Performing Organization Address [facility] Co de Phone Number CERROSALINA MILLENNIUM * (ABNORMAL) Hemoglobin A1c (07/11/2014 9:37 AM EST) Hemoglobin A1c 5.9(H) <=5.6 % SONJA Sheth [facility] Comment: Reference Range: 4.3 - 5.6% [...] 36: Suppl. 1, S67-74 Estimated Average Glucose 123 mg/dL [facility] Comment: eAG equivalents for HbA1c percentages: HbA1c(%) ?eAG(mg/dL) 6.0 ?126 6.5 ?140 7.0 ?154 7.5 ?169 8.0 ?183 8.5 ?197 9.0 ?212 9.5 ?226 10.0 ? 240 Limitations: The eAG calculation has not been validated on women, individuals below 18 years old and above 70 years old, and individuals with hemoglobinopathies. Additional resources are available on the ADA website: [email or web address] Harjeet MENDOSA, Chanel J, Philip R, et al. ??Translating the A1C assay into estimated average glucose values. ??Diabetes Care 2008:31(8):0930-1429. Blood specimen (specimen) 07/11/2014 9:37 AM EST 07/11/2014 9:41 AM EST Narrative Resulting Agency Comment Spec In Lab Albania Schmid MD CHEMISTRY ORDERABLES Performing Organization Address City/State/[facility] Co de Phone Number [facility] MADONNAIUM * Phosphorus (07/11/2014 9:37 AM EST) Phosphorus 3.4 2.5 - 4.5 mg/dL [facility] MILLENNIUM Blood specimen (specimen) 07/11/2014 9:37 AM EST 07/11/2014 9:41 AM EST Narrative Resulting Agency Comment Spec In Lab Albania Schmid MD CHEMISTRY ORDERABLES Performing Organization Address [facility] Co de Phone Number [facility] * Albumin Level (07/11/2014 9:37 AM EST) Albumin 3.7 3.2 - 5.2 gm/dL [facility] Blood specimen (specimen) 07/11/2014 9:37 AM EST 07/11/2014 9:41 AM EST Narrative Resulting Agency Comment Spec In Lab Albania Schmid MD CHEMISTRY ORDERABLES Performing Organization Address [facility] Co de Phone Number [facility] * (ABNORMAL) PTH (07/11/2014 9:37 AM EST) Parathyroid Hormone 164(H) 15 - 65 pg/mL [facility] Blood specimen (specimen) 07/11/2014 9:37 AM EST 07/11/2014 9:41 AM EST Narrative Resulting Agency Comment Spec In Lab Albania Schmid MD CHEMISTRY ORDERABLES Performing Organization Address [facility] Co de Phone Number [facility] * (ABNORMAL) Basic Metabolic Panel (non-fasting) (07/11/2014 9:37 AM EST) Glucose 111 60 - 199 mg/dL [facility] Comment:Diabetes: >=200 mg/d L plus symptoms Blood Urea Nitrogen 41(H) 10 - 20 mg/dL [facility] Creatinine 2.73(H) 0.80 - 1.50 mg/dL [facility] Comment: Please note that the pediatric reference [...] the following links into your internet browser. [email or web address] Blood specimen (specimen) 07/11/2014 9:37 AM EST 07/11/2014 9:41 AM EST Narrative Resulting Agency Comment Spec In Lab Albania Schmid MD CHEMISTRY ORDERABLES [facility] [employer] * US retroperitoneal complete (06/07/2014 10:23 AM EST) Anatomical Region Laterality Modality Abdomen Ultrasound 06/07/2014 10:2 3 AM EST Narrative 06/07/2014 10:30 AM EST Renal ?(Signed Final 06/07/2014 10:29 ? am) Patient Info ID #: ? [id number] ?: ??[birth year] (63 yrs) Name: ? ETHEL AKINS ?Visit Date: 06/07/2014 10:10 am Performed By Performed By: ?Isrrael MCGRATH, ??Nuris Attending: ? Alec GERBER, Guy Vargas Referred By: ? ALBANIA SCHMID MD Service(s) Provided ??URETRO - Retroperitoneal Complete - [id number] ? [id number] Indications ??63 year old male with DM, [...] 06/07/2014 10:29 am) Patient Info ID #: [id number] : [birth year] (63 yrs) Name: ETHEL AKINS Visit Date: 06/07/2014 10:10 am Performed By Performed By: Nuris Arcos RDMS Attending: Guy Michael MD Referred By: ALBANIA SCHMID MD Service(s) Provided URETRO - Retroperitoneal Complete - [id number] Indications 63 year old male with DM, [...] Text Report Department: Vascular Surgery Lab Patient: [id number] (ETHEL AKINS) CPT Code: 00287 ICD-9: 401.9; 272.0 Referring Physician: ALBANIA SCHMID [...] Urine Dipstick Hazy(A) Clear CERNER MILLENNIUM Specific Lacey Urine Automated 1.015 1.002 - 1.030 CERNER [...] ORDERABLE S CERNER MILLENNIUM * (ABNORMAL) Hemogram (05/22/2014 10:13 AM EST) [...] MD HEMATOLOGY ORDERABLE S CERNER DANELLEENNIUM * Cholesterol, total (05/22/2014 10:13 AM EST) Cholesterol, Total 166 <=199 mg/dL [facility]ERNER MILLENNIUM Comment: Recommendations of the NCEP Adult Treatment Panel for the following risk cutoff thresholds for the [place] population: Desirable: <200 mg/dL Borderline High: 200-239 mg/dL High: > or = 240 mg/dL Blood specimen (specimen) 05/22/2014 10:13 AM EST 05/22/2014 10:22 AM EST Narrative Resulting Agency Comment Spec In Lab Albania Schmid MD CHEMISTRY ORDERABLES [facility] * Hemoglobin A1c (05/22/2014 10:13 AM EST) Hemoglobin A1c 5.6 <=5.6 % SONJA Sheth [facility] Comment: Reference Range: 4.3 - 5.6% [...] Mellitus, Diabetes Care 2013; 36: Suppl. 1, S67-41 Estimated Average Glucose 114 mg/dL [facility] Comment: eAG equivalents for HbA1c percentages: HbA1c(%) ?eAG(mg/dL) 6.0 ?126 6.5 ?140 7.0 ?154 7.5 ?169 8.0 ?183 8.5 ?197 9.0 ?212 9.5 ?226 10.0 ? 240 Limitations: The eAG calculation has not been validated on women, individuals below 18 years old and above 70 years old, and individuals with hemoglobinopathies. Additional resources are available on the ADA website: [email or web address] Harjeet MENDOSA, Chanel J, Philip R, et al. ??Translating the A1C assay into estimated average glucose values. ??Diabetes Care 2008:31(8):7219-8753. Blood specimen (specimen) 05/22/2014 10:13 AM EST 05/22/2014 10:22 AM EST Narrative Resulting Agency Comment Spec In Lab Albania Schmid MD CHEMISTRY ORDERABLES Performing Organization Address [facility] Co de Phone Number [facility] * Phosphorus (05/22/2014 10:13 AM EST) Phosphorus 3.7 2.5 - 4.5 mg/dL [facility] Blood specimen (specimen) 05/22/2014 10:13 AM EST 05/22/2014 10:22 AM EST Narrative Resulting Agency Comment Spec In Lab Albania Schmid MD CHEMISTRY ORDERABLES Performing Organization Address [facility] Co de Phone Number [facility] * Albumin Level (05/22/2014 10:13 AM EST) Albumin 3.5 3.2 - 5.2 gm/dL [facility] Blood specimen (specimen) 05/22/2014 10:13 AM EST 05/22/2014 10:22 AM EST Narrative Resulting Agency Comment Spec In Lab Albania Schmid MD CHEMISTRY ORDERABLES Performing Organization Address [facility] Co de Phone Number [facility] * (ABNORMAL) PTH (05/22/2014 10:13 AM EST) Parathyroid Hormone 153(H) 15 - 65 pg/mL [facility] Blood specimen (specimen) 05/22/2014 10:13 AM EST 05/22/2014 10:22 AM EST Narrative Resulting Agency Comment Spec In Lab Albania Schmid MD CHEMISTRY ORDERABLES [facility] * (ABNORMAL) Basic Metabolic Panel (non-fasting) (05/22/2014 [...] the following links into your internet browser. [email or web address] Blood specimen (specimen) 05/22/2014 10:13 AM EST [...] (moderate) documented in this encounter Care Teams Draw Off Worker Relationship Specialty Start Date End Date Albania Denis DO [address] [place] [address] PCP - General 09/03/12 03/17/22 documented as of this encounter
== END 2024-04-04 13:16 | disposition home or self-care (01) ==
LOC: LBN 13:15
PROVIDERS: PCP Family Medicine; Referring Provider Family Medicine; Visit Provider Surgery
DX: C44.529 Squamous cell carcinoma of skin of other part of trunk (principal)
CPT/HCPCS: 88305

== ENCOUNTER → 2024-04-04 13:15 | Outpatient (BNVA) | payer MEDICARE, SELFPAY | PROVIDERS: PCP Family Medicine; Referring Provider Family Medicine; Visit Provider Surgery | DX: C44.529 Squamous cell carcinoma of skin of other part of trunk | CPT/HCPCS: 11602 ==

== ENCOUNTER → 2024-04-14 12:51 | Outpatient (BNVA) | payer MEDICARE, SELFPAY | PROVIDERS: PCP Family Medicine; Referring Provider Family Medicine; Visit Provider Surgery | DX: Z48.02 Encounter for removal of sutures (principal); C44.92 Squamous cell carcinoma of skin, unspecified ==

== ENCOUNTER 2024-05-16 12:25 | Observation (INO) | payer MEDICARE, SELFPAY ==
[2024-05-16] VITALS (34 sets, daily range): BP systolic 125–164; BP diastolic 43–87; PULSE 50–80; RESP 15–28; TEMP 36.4–36.8; O2SAT 87–95
--- NOTE | 2024-05-16 12:45 | RT.EKG_ITS ---
APPROVED REPORT Exam: Resting ECG Reason for Exam: sob Patient Location: E HR:56 bpm ECG Measurements Heart Rate [address] 66 P 0 QRSd 171 QRS -70 QT 496 T 103 QTc 478 Conclusion paced 56
--- NOTE | 2024-05-16 13:30 | DI.RAD_ITS ---
Exam(s) XR CHEST 2V PA LATERAL EXAM: XR CHEST 2V PA LATERAL CLINICAL HISTORY: SOB TECHNIQUE: 2D digital imaging was performed. Two views. COMPARISON: CR,XR XR PORTABLE CHEST AP from 02/16/2022 FINDINGS: HEART: Enlarged, unchanged. Pacemaker again noted. Aorta: Tortuous. PULMONARY VASCULATURE: Prominent. MEDIASTINUM: Unremarkable. LUNGS: Clear fibrotic changes. PLEURAL SPACE: Tiny bilateral pleural effusions. No pneumothorax. BONE:Unremarkable for age. SOFT TISSUES: Unremarkable. IMPRESSION: Mild CHF with tiny bilateral pleural effusions. DATA REPOSITORY: RADIATION DOSE DELIVERED:
[2024-05-16 13:47] LABS: Abs Immature Grans 0.02 10^3/uL (0.0-0.06); Absolute Basophil Count 0.08 10^3/uL (0.0-0.2); Absolute Eosinophil Count 0.35 10^3/uL (0.0-0.7); Absolute Lymphocyte Count 1.31 10^3/uL (1.2-3.4); Absolute Monocyte Count 0.65 10^3/uL (0.1-0.8); Absolute Neutrophil Count 5.03 10^3/uL (1.2-6.7); Basophils % 1.1 %; Eosinophils % 4.7 %; HGB 13.4 g/dL (13.5-17.5); Immature Grans % 0.3 %; Lymphocytes % 17.6 %; MCH 29.7 pg (27.0-33.0); MCHC 32.7 % (32.0-36.0); MCV 91 fL (80-95); MPV 9.2 fL (8.0-11.0); Monocytes % 8.7 %; Neutrophils % 67.6 %; Platelet Count 228 10^3/uL (130-400); RBC 4.51 10^6/uL (4.36-5.78); RDW-SD 46.1 fL; WBC 7.44 10^3/uL (4.4-10.8)
[2024-05-16 14:30] LABS: ALT 25 U/L (16-63); AST 18 U/L (15-37); Albumin 3.3 g/dL (3.4-5.0); Alkaline Phosphatase 79 U/L (46-116); Anion Gap 7.8 mmol/L (3-11); BUN 19 mg/dL (7-18); Bilirubin, Total 3.32 mg/dL (0.2-1.0); CO2 30.2 mmol/L (21.0-32.0); CREATININE 1.5 mg/dL (0.70-1.30); Calcium 9.6 mg/dL (8.5-10.1); Chloride 109 mmol/L (98-107); Estimated GFR 48.25 (mL/min/1.73m2); Glucose 111 mg/dL (74-106); Magnesium 1.5 mg/dL (1.8-2.4); NT-proBNP 3744 pg/mL (<300); Sodium 147 mmol/L (136-145); Total Protein 7.5 g/dL (6.4-8.2); Troponin I 47 ng/L (<or=76)
[2024-05-16 14:56] LABS: INR 1.2 (0.9-1.1); PTT Activated 26.1 sec (23.6-32.8); Prothrombin Time 11.6 sec (9.1-11.1)
[2024-05-16] MEDS: Furosemide 40 MG/4 ML VIAL IVP (15:25)
[2024-05-16 15:56] LABS: Bilirubin Negative (Negative); Blood Negative (Negative); Clarity Clear (Clear); Glucose Negative (Negative); Ketones Negative (Negative); Leukocyte Esterase Negative (Negative); Nitrite Negative (Negative); Urobilinogen 0.2 mg/dL (Up to 0.2); pH 6.5 (5-8)
[2024-05-16 16:17] LABS: Troponin I 39 ng/L (<or=76)
[2024-05-16 16:20] LABS: Bacteria Rare HPF (Negative); Crystals Rare Calcium Oxalate HPF (Negative); Epithelial Cells Rare HPF (Negative); WBC 0-2 HPF (0-5)
[2024-05-16 16:21] LABS: C & S Indicated? No; RBC 0-2 HPF (0-2)
--- NOTE | 2024-05-16 16:39 | HPE_ITS ---
Date of service: 05/16/24 Time of Service: 16:39 Assessment and Plan Assessment and plan (1) CHF (congestive heart failure): Status: Acute Assessment and plan: CHF with history of ischemic cardiomyopathy and last echocardiogram showing HFmrEF. He is responding to 40mg IV furosemide, continue this BID for now. Monitor on telemetry, consider interrogating pacer as rhythm has gone from atrial to ventricular pacing, I wonder if this could have contributed to CHF. Should repeat echocardiogram He is on metoprolol, but not SGLT2i, ANNAMARIE/ARB/ARNI or MRA. I would talk to Dr. Eagle from transplant team before considering adding anything that can affect renal function (2) Atrial fibrillation: Status: Chronic Assessment and plan: rate controlled with pacer, s/p watchman. Qualifiers: Atrial fibrillation type: unspecified Qualified Code(s): I48.91 - Unspecified atrial fibrillation (3) Hypertension: Status: Chronic Assessment and plan: Continue outpatient therapy, BP should improve with diuresis (4) Diabetes mellitus, type II: Status: Chronic Assessment and plan: Well controlled, possibly too well controlled, with A1c 6.5% in April. Continue outpatient medication and monitor. Given CAD, [facility] he would be much better off on GLP-1 and SLGT2i than gliptin and glipizide, but will defer to PCP. 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 (6) Chronic kidney disease: Assessment and plan: S/p transplant. Mild proteinuria on u/a. Cr similar to recent numbers, monitor on diuretic. (7) Tobacco use disorder: Status: Acute Assessment and plan: Discussed. Low level cigar use, but still possible health inpact in terms of CVA/IL risk. (8) Hypomagnesemia: Status: Acute Assessment and plan: replace and follow. (9) Hyperbilirubinemia: Status: Acute Assessment and plan: This is chronic, likely medication effect. No intervention. (10) Hypernatremia: Status: Acute Assessment and plan: Mild, follow with diuresis (11) DVT prophylaxis: Status: Acute Assessment and plan: relatively high risk for DVT, use LMWH History of Present Illness History of Present Illness Chief Complaint: SOB Narrative: 73 yo M with h/o CAD, well controlled type 2 DM, atrial fibrillation with h/o embolic and hemorrhagic strokes, s/p watchman, and s/p kidney trasplant who presented with 5 days of progressively increased shortness of breath. He states his symptoms started while he was down in [facility] helping a friend build a deck. He was exerting him self moderately but more than usual. He did not have chest pain, palpitations, or dizziness. He just felt more fatigued and more SOB with activity. Over the subsequent days he noted increased MILIAN and SOB at rest, as well as orthopnea and 10-12lb weight gain. He isn't sure what triggered the change. He denies change in diet or medications. He denies taking NSAIDs or other OTC agents. He did notice he was urinating less over the past week, but he is making a lot of urine since he was treated with IV furosemide. Review of Systems All systems reviewed & are unremarkable except as noted in HPI and below Constitutional Constitutional: Denies chills, Denies fever(s) and Denies headache(s) Eyes Eyes: Denies loss of vision ENT Ears, Nose, Mouth, and Throat: Denies headache(s), Denies nasal discharge, Denies nasal obstruction and Denies sore throat Cardiovascular Cardiovascular: Reports as per HPI, Denies chest pain with activity, Denies syncope, Reports leg edema, Denies palpitations and Reports orthopnea Respiratory Respiratory: Denies chest congestion, Denies cough, Denies hemoptysis and Denies excessive phlegm production Gastrointestinal Gastrointestinal: Denies abdominal pain and Reports constipation (more in past 2 weeks, looser before that) Neurologic Neurologic: Denies syncope, Denies headache(s), Denies localized weakness, Denies loss of vision and Denies sensory deficit Endocrine Endocrine: Denies palpitations PFSH All Active Problems (Updated 05/16/24 @ 17:02 by Sukumar Vega MD) Dyspnea (Acute) Hypernatremia (Acute) DVT prophylaxis (Acute) Hyperbilirubinemia (Acute) Hypomagnesemia (Acute) Squamous cell skin cancer (Acute) Atypical pigmented skin lesion (Acute) Pigmented skin lesion (Acute) Gout (Chronic) Acute diverticulitis (Acute) Physical deconditioning (Acute) Gait difficulty (Acute) Meibomian gland dysfunction (MGD) of upper and lower eyelid of left eye (Acute ~08/2022) Meibomian gland dysfunction (MGD) of upper and lower eyelid of right eye (Acute ~08/2022) [place]en (degenerative) of macula, bilateral (Acute) [place] note 08/15/22 Age-related nuclear cataract, bilateral (Acute) [place] note 08/15/22 Dry mouth (Acute) Periodic limb movement disorder (Acute) Central sleep apnea (Acute) 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 (Acute) Diverticulitis of intestine with perforation (Acute) Pacemaker (Acute) dual lead Med[employer]onic Tina 01/31/2022 RIGHT SIDED Presence of Watchman left atrial appendage closure device (Acute) [facility] 05/27 Long-term current use of immunosuppressive biologic agent (Chronic) Vitamin D deficiency (Acute ~05/2022) Osteoarthritis of left knee (Acute) Parkinsonism (Acute) Tremor (Acute) Acute diverticulitis (Acute) - confirmed by CT , inpt at [facility] Bradycardia (Chronic) Vasogenic edema (Acute) Hypertension (Chronic) Hiccups (Acute) Altered mental status (Acute) 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, tx at [facility], anticoagulant stopped Hypertensive retinopathy (Acute ~09/27/20) [place] 09/27/20- MILD TO MODERATE-KB Spinal stenosis (Acute) L5-S1 Subsequent non-ST elevation (NSTEMI) myocardial infarction within 4 weeks of initial infarction (Acute) stents Status post rotator cuff repair (Acute) Postoperative stiffness of total knee replacement (Chronic) Olecranon bursitis, left elbow (Chronic) Arthritis of left elbow (Acute) Tubular adenoma (Acute 09/12/15) 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 Microscopic hematuria (Acute 05/21/12) neg workup [facility]. Kidney transplant recipient (Chronic 09/16/15) [facility]; without recipient nephrectomy ureteral stenosis with multiple surgeries Inguinal hernia, unilateral (Acute) left Hypothyroidism (Acute 04/06/15) Hypertension (Acute) GERD (gastroesophageal reflux disease) (Acute) Elevated BUN (Acute) Diverticula of colon (Acute 09/12/15) Colon polyp (Acute 06/04/03) Repeat colonoscopy-no polyps; diverticulosis Cardiomyopathy due to hypertension (Acute 11/29/14) EF 40% 09/17 CKD (chronic kidney disease) stage 3, GFR 30-59 ml/min (Acute 04/25/14) 10/18 Stage 4.. Need dialysis or transplant. 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 s/p hernia repair b. s/p knee arthroscopy c. s/p unspecified shoulder surgery d. s/p vasectomy Chronic renal insufficiency (Chronic) Cryptogenic stroke (Chronic) Hyperlipidemia (Chronic) Diabetes mellitus, type II (Chronic) Hypertension (Chronic) CHF (congestive heart failure) (Acute 09/19/14) Medical History History of diverticulitis (09/14/22) Fistula Obstructive sleep apnea Myocardial infarction Hepatitis C Treated and cured Chronic kidney disease Hypothyroidism CVA (cerebral vascular accident) CHF (congestive heart failure) Diabetes HTN (hypertension) Hyperlipemia GERD (gastroesophageal reflux disease) BPH (benign prostatic hyperplasia) Atrial fibrillation Surgical History History of arthroscopy of knee History of biopsy H/O bladder repair surgery History of hernia repair H/O vasectomy Rotator Cuff Repair left Colonoscopy - MAC 2009 BIOPSY, KIDNEY (10/16/14) [facility]-RIGHT Arthroplasty of knee 2006-right Family History Mother Essential hypertension Father Myocardial infarction Stroke Brother Essential hypertension Neoplasm Social History Smoking/Tobacco Use Status: Current-Occasional Tobacco Type: cigars Tobacco: How many years used: 20 Smoking risk assessment performed?: Yes Alcohol Intake: never Drug use: Occasionally Substance use type: marijuana Adopted: No Caregiver/Support person: Yes Foster care: No Household members: spouse Housing: house Number of Children: 2 number of grandchildren: 1 Communication Needs: None Education Level: high school 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 Pets and animals: Yes Pets and animals: dog(s) Sexually active: No Do you think of yourself as: straight/heterosexual Current gender identity: male What is your relationship status?: How often do you talk on the phone with friends or family?: three or more times per week Do you belong to any clubs or organized social groups?: no Panel score (0-1 are the most socially isolated patients): 2 Idalia/Amish: None Special idalia needs: No Seatbelt use: always Helmet use: Yes Helmet use: always 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 Do you feel safe at home: Yes Do you feel safe in your relationship?: Yes Meds Allergies and Home Medications Allergies Allergy/AdvReac Type Severity Reaction Status Date / Time strawberry Allergy Unknown Other (See Verified 05/16/24 12:55 Comment) IV contrast AdvReac Severe Other (See Uncoded 05/16/24 12:55 Comment) Home Medications ?Medication ?Instructions ?Recorded ?Confirmed ?Type mycophenolate mofetil 250 mg 250 mg PO BID 04/15/16 05/16/24 History capsule (CellCept) ascorbic acid (vitamin C) 500 mg 500 mg PO TID 09/05/16 05/16/24 History capsule,extended release (Vitamin C) omeprazole 20 mg capsule,delayed 20 mg PO DAILY PRN GERD #90 caps 06/17/19 05/16/24 Rx release sjbdwuka-mgz-eiszc acid 0.4 2 tab PO DAILY 01/16/21 05/16/24 History mg-lycopene 300 mcg-lutein 250 mcg tablet (Centrum Silver) acetaminophen 500 mg capsule 500 mg PO Q8H PRN PRN pain 07/17/22 05/16/24 History aspirin 81 mg tablet,delayed 81 mg PO DAILY 07/17/22 05/16/24 History release (Adult Low Dose Aspirin) blood-glucose meter #1 ea 10/06/22 05/16/24 Rx nitroglycerin 0.4 mg sublingual 0.4 mg sublingual Q5M PRN chest 12/22/22 04/17/24 Rx tablet pain #30 tabs amlodipine 5 mg tablet 5 mg PO DAILY #90 tabs 04/16/23 05/16/24 Rx levothyroxine 137 mcg tablet 137 mcg PO DAILY #90 tab-caps 05/01/23 05/16/24 Rx atorvastatin 40 mg tablet 40 mg PO QHS #90 tabs 05/26/23 05/16/24 Rx tamsulosin 0.4 mg capsule 0.4 mg PO DAILY #90 tab-caps 05/26/23 05/16/24 Rx tacrolimus 1 mg capsule, 1 mg PO BID 06/25/23 05/16/24 History immediate-release (Prograf) metoprolol succinate 50 mg 75 mg PO BID 09/24/23 05/16/24 History tablet,extended release 24 hr blood sugar diagnostic #180 ea 09/28/23 05/16/24 Rx lancets 28 gauge #100 ea 09/28/23 05/16/24 Rx hydralazine 100 mg tablet 100 mg PO BID #180 tabs 10/12/23 05/16/24 Rx metformin 500 mg tablet 500 mg PO BID #180 tabs 10/12/23 05/16/24 Rx glipizide 10 mg tablet, extended 10 mg PO BID #180 tabs 12/03/23 05/16/24 Rx release 24 hr lidocaine 5 % topical patch 1 patch topical DAILY PRN pain #15 02/14/24 05/16/24 Rx (Lidoderm) ea saxagliptin 5 mg tablet 5 mg PO DAILY #90 tabs 04/07/24 05/16/24 Rx calcitriol 0.5 mcg capsule 0.5 mcg PO DAILY 05/16/24 05/16/24 History Exam Narrative Exam Narrative: GEN: Alert and oriented x 4, pleasant and cooperative, gives linear history. No acute distress at rest. HEENT: Head atraumatic. Conjunctiva clear, no icterus. PEERL, EOMI. no rhinorrhea. MMM, OP benign. Neck is supple with no masses or lymphadenopathy, trachea midline. JVP about 12 cm H20. LUNGS: CTAB with normal effort, but diminished at bases bilaterally. CV: RRR with 3/6 systolic murmur loudest LUSB, towards neck. No gallops, or rubs. ABD: active bowel sounds, soft, nontender and nondistended. No masses. EXT: no cyanosis, clubbing. 1+ pitting edema to knees bilaterally. not tender MSK: No joint redness or swelling NEURO: CN 2-12 grossly intact. Normal movement of 4 extremities. Normal speech and coordination. No tremor SKIN: No rashes or open wounds. Mild jaundice. PSYCH: normal mood and affect, normal thought process Results Imaging Chest x-ray: report reviewed (Mild CHF with tiny bilateral pleural effusions. ) and image reviewed EKG: report reviewed and image reviewed (v- paced rate 56. last EKG 08/20/22 shows atrial pacing) Labs 05/16/24 13:40 05/16/24 13:40 Labs: Laboratory Results - last 24 hr 05/16/24 05/16/24 05/16/24 13:40 15:22 15:39 WBC 7.44 RBC 4.51 Hgb 13.4 L Hct 41.0 MCV 91 MCH 29.7 MCHC 32.7 RDW 14.0 Plt Count 228 MPV 9.2 Immature Gran % 0.3 Neutrophils % 67.6 Lymphocytes % 17.6 Monocytes % 8.7 Eosinophils % 4.7 Basophils % 1.1 Nucleated RBC % 0.0 Absolute Neutrophils 5.03 Absolute Lymphocytes 1.31 Absolute Monocytes 0.65 Absolute Eosinophils 0.35 Absolute Basophils 0.08 PT 11.6 H INR 1.2 H APTT 26.1 Sodium 147 H Potassium 4.0 Chloride 109 H Carbon Dioxide 30.2 Anion Gap 7.8 BUN 19 H Creatinine 1.5 H Est GFR (CKD-EPI 2020) 48.25 Glucose 111 H Calcium 9.6 Magnesium 1.5 L Total Bilirubin 3.32 H AST 18 ALT 25 Alkaline Phosphatase 79 Troponin I 47 39 NT-Pro-B Natriuret Pep 3744 H Total Protein 7.5 Albumin 3.3 L Urine Color Yellow Urine Clarity Clear Urine pH 6.5 Ur Specific [place] 1.020 Urine Protein 100 H Urine Ketones Negative Urine Blood Negative Urine Nitrite Negative Urine Bilirubin Negative Urine Urobilinogen 0.2 Ur Leukocyte Esterase Negative Urine RBC 0-2 Urine WBC 0-2 Ur Epithelial Cells Rare Urine Crystals Rare Calcium Oxalate Urine Bacteria Rare Urine Mucus Not Applicable Ur Culture Indicated? No Urine Glucose Negative Last Vital Signs Temp 36.8 C 05/16/24 13:27 Pulse 51 L 05/16/24 15:47 Resp 24 05/16/24 16:00 BP 164/67 H 05/16/24 15:47 Pulse Ox 94 05/16/24 15:50 Time Spent Time spent with Patient: 55-74 minutes Time was spent: preparing to see the patient(eg.review tests), obtaining and/or reviewing separately otained hiistory, ordering medications,tests, procedures, referring, communicating with other health menagerie caretaker, indepentently interpreting results, counseling the patient and care coordination
--- NOTE | 2024-05-16 16:56 | W.ED.GENAD ---
Discharge Plan Disposition Patient Disposition: Admit to [facility] Condition: Fair Discharge Details Chief Complaint: SOB Clinical Impression: CHF (congestive heart failure), Dyspnea Primary Care Provider: Urbano Jimenez ED Provider: Sukumar Vega Home Meds and New Rx's Prescriptions: No Action omeprazole 20 mg capsule,delayed release(DR/EC) 20 mg PO DAILY PRN (Reason: GERD) Qty: 90 3RF metformin 500 mg tablet 500 mg PO BID Qty: 180 3RF hydralazine 100 mg tablet 100 mg PO BID Qty: 180 3RF nitroglycerin 0.4 mg tablet, sublingual 0.4 mg SL Q5M PRN (Reason: chest pain) Qty: 30 0RF (DME) blood sugar diagnostic Strip See Rx Instructions .ROUTE .MEDSUPPLY Qty: 180 4RF Rx Instructions: test BID (DME) lancets 28 gauge misc 1 ea Miscellaneous DAILY Qty: 100 0RF Rx Instructions: FOR ONE TOUCH ULTRA MINI METER. NO INSULIN. DIAGNOSIS CODE E11.3 mycophenolate mofetil [CellCept] 250 MG capsule 250 mg PO BID ascorbic acid (vitamin C) [Vitamin C] 500 MG capsule, extended release 500 mg PO TID Centrum Silver 0.4-300-250 mg-mcg-mcg tablet 2 tab PO DAILY aspirin [Adult Low Dose Aspirin] 81 mg tablet,delayed release (DR/EC) 81 mg PO DAILY acetaminophen 500 mg capsule 500 mg PO Q8H PRN PRN (Reason: pain) (DME) blood-glucose meter Misc 1 ea Miscellaneous DAILY Qty: 1 0RF Rx Instructions: FOR ONE TOUCH ULTRA MINI; Dx E11.9, to keep HbA1c less than 6.5% amlodipine 5 mg tablet 5 mg PO DAILY Qty: 90 3RF levothyroxine 137 mcg tablet 137 mcg PO DAILY Qty: 90 3RF atorvastatin 40 mg tablet 40 mg PO QHS Qty: 90 3RF tamsulosin 0.4 mg capsule 0.4 mg PO DAILY Qty: 90 3RF tacrolimus [Prograf] 1 mg capsule 1 mg PO BID glipizide 10 mg tablet extended release 24hr 10 mg PO BID Qty: 180 3RF saxagliptin 5 mg tablet 5 mg PO DAILY Qty: 90 3RF metoprolol succinate 50 mg tablet extended release 24 hr 75 mg PO BID Patient Comments: TAKE 1&1/2 TABLETS BY MOUTH TWO TIMES A DAY lidocaine [Lidoderm] 5 % adhesive patch,medicated 1 patch topical DAILY PRN (Reason: pain) Qty: 15 0RF Rx Instructions: leave on most painful area for up to 12 hrs calcitriol 0.5 mcg capsule 0.5 mcg PO DAILY Patient Comments: TAKE ONE CAPSULE BY MOUTH EVERY DAY HPI General Date/Time Provider Initiated Documentation: 05/16/24 13:31. Limitations to Documentation: no limitations. Information obtained by: patient and family (). HPI Narrative: 73-year-old gentleman with past medical history of renal transplant 2016, pacemaker A-fib, Watchman device, NSTEMI, CVA, diabetes, hypertension presents for evaluation of shortness of breath. Symptoms have been ongoing for the last 5 days and progressively worsening. Associated with abdominal distention and leg swelling. He reports that he has gained 33 pounds over the last 2 weeks. He denies cough or fever or chest pain. Related Data Home Medications ?Medication ?Instructions ?Recorded ?Confirmed mycophenolate mofetil 250 mg 250 mg PO BID 04/15/16 05/16/24 capsule (CellCept) ascorbic acid (vitamin C) 500 mg 500 mg PO TID 09/05/16 05/16/24 capsule,extended release (Vitamin C) omeprazole 20 mg capsule,delayed 20 mg PO DAILY PRN GERD #90 caps 06/17/19 05/16/24 release [id number] acid 0.4 2 tab PO DAILY 01/16/21 05/16/24 mg-lycopene 300 mcg-lutein 250 mcg tablet (Centrum Silver) acetaminophen 500 mg capsule 500 mg PO Q8H PRN PRN pain 07/17/22 05/16/24 aspirin 81 mg tablet,delayed 81 mg PO DAILY 07/17/22 05/16/24 release (Adult Low Dose Aspirin) blood-glucose meter #1 ea 10/06/22 05/16/24 nitroglycerin 0.4 mg sublingual 0.4 mg sublingual Q5M PRN chest 12/22/22 04/17/24 tablet pain #30 tabs amlodipine 5 mg tablet 5 mg PO DAILY #90 tabs 04/16/23 05/16/24 levothyroxine 137 mcg tablet 137 mcg PO DAILY #90 tab-caps 05/01/23 05/16/24 atorvastatin 40 mg tablet 40 mg PO QHS #90 tabs 05/26/23 05/16/24 tamsulosin 0.4 mg capsule 0.4 mg PO DAILY #90 tab-caps 05/26/23 05/16/24 tacrolimus 1 mg capsule, 1 mg PO BID 06/25/23 05/16/24 immediate-release (Prograf) metoprolol succinate 50 mg 75 mg PO BID 09/24/23 05/16/24 tablet,extended release 24 hr blood sugar diagnostic #180 ea 09/28/23 05/16/24 lancets 28 gauge #100 ea 09/28/23 05/16/24 hydralazine 100 mg tablet 100 mg PO BID #180 tabs 10/12/23 05/16/24 metformin 500 mg tablet 500 mg PO BID #180 tabs 10/12/23 05/16/24 glipizide 10 mg tablet, extended 10 mg PO BID #180 tabs 12/03/23 05/16/24 release 24 hr lidocaine 5 % topical patch 1 patch topical DAILY PRN pain #15 02/14/24 05/16/24 (Lidoderm) gia saxagliptin 5 mg tablet 5 mg PO DAILY #90 tabs 04/07/24 05/16/24 calcitriol 0.5 mcg capsule 0.5 mcg PO DAILY 05/16/24 05/16/24 Previous Rx's ?Medication ?Instructions ?Recorded omeprazole 20 mg capsule,delayed 20 mg PO DAILY PRN GERD #90 caps 06/17/19 release blood-glucose meter #1 ea 10/06/22 nitroglycerin 0.4 mg sublingual 0.4 mg sublingual Q5M PRN chest 12/22/22 tablet pain #30 tabs amlodipine 5 mg tablet 5 mg PO DAILY #90 tabs 04/16/23 levothyroxine 137 mcg tablet 137 mcg PO DAILY #90 tab-caps 05/01/23 atorvastatin 40 mg tablet 40 mg PO QHS #90 tabs 05/26/23 tamsulosin 0.4 mg capsule 0.4 mg PO DAILY #90 tab-caps 05/26/23 blood sugar diagnostic #180 ea 09/28/23 lancets 28 gauge #100 ea 09/28/23 hydralazine 100 mg tablet 100 mg PO BID #180 tabs 10/12/23 metformin 500 mg tablet 500 mg PO BID #180 tabs 10/12/23 glipizide 10 mg tablet, extended 10 mg PO BID #180 tabs 12/03/23 release 24 hr lidocaine 5 % topical patch 1 patch topical DAILY PRN pain #15 02/14/24 (Lidoderm) ea saxagliptin 5 mg tablet 5 mg PO DAILY #90 tabs 04/07/24 Allergies Allergy/AdvReac Type Severity Reaction Status Date / Time strawberry Allergy Unknown Other (See Verified 05/16/24 12:55 Comment) IV contrast AdvReac Severe Other (See Uncoded 05/16/24 12:55 Comment) General Stated Complaint: SOB ALICIA: 3 Exam Narrative Exam Narrative: Review of Systems: All systems reviewed & are unremarkable except as noted in HPI and below Well-developed NCAT Periorbital edema noted RRR Mild tachypnea and increased work of breathing, difficulty completing full sentences, diminished breath sounds at the bases with mild crackles Mild abdominal distention that is soft nontender Extremities with trace edema edema Course Vital Signs Vital signs: Vital Signs Temperature 36.8 C 05/16/24 12:49 Pulse 70 05/16/24 12:49 Respiratory Rate 20 05/16/24 12:49 Blood Pressure 140/77 05/16/24 12:49 Pulse Oximetry 94 05/16/24 12:49 Temperature 36.8 C 05/16/24 13:27 Temperature Source Temporal Artery Scan 05/16/24 13:27 Pulse 51 L 05/16/24 15:47 Pulse 63 05/16/24 16:00 Respiratory Rate 24 05/16/24 16:00 Respiratory Effort Normal, Non-Labored 05/16/24 13:22 Respiratory Depth Normal 05/16/24 13:22 Respiratory Pattern Normal 05/16/24 13:22 Blood Pressure 164/67 H 05/16/24 15:47 Blood Pressure Mean 105 05/16/24 15:47 Blood Pressure Position Supine 05/16/24 13:27 Pulse Oximetry 94 05/16/24 15:50 Oxygen Delivery Method Room Air 05/16/24 13:27 Pain Level 0 05/16/24 12:49 Lab/Test Results Lab/Test Results: Laboratory Tests Range/Units 05/16/24 05/16/24 05/16/24 13:40 15:22 15:39 WBC (4.4-10.8) 10^3/uL 7.44 RBC (4.36-5.78) 10^6/uL 4.51 Hgb (13.5-17.5) g/dL 13.4 L Hct (40.0-50.0) % 41.0 MCV (80-95) fL 91 MCH (27.0-33.0) pg 29.7 MCHC (32.0-36.0) % 32.7 RDW (11.8-14.1) % 14.0 Plt Count (130-400) 10^3/uL 228 MPV (8.0-11.0) fL 9.2 Immature Gran % % 0.3 Neutrophils % % 67.6 Lymphocytes % % 17.6 Monocytes % % 8.7 Eosinophils % % 4.7 Basophils % % 1.1 Nucleated RBC % (0.0-0.3) % 0.0 Absolute Neutrophils (1.2-6.7) 10^3/uL 5.03 Absolute Lymphocytes (1.2-3.4) 10^3/uL 1.31 Absolute Monocytes (0.1-0.8) 10^3/uL 0.65 Absolute Eosinophils (0.0-0.7) 10^3/uL 0.35 Absolute Basophils (0.0-0.2) 10^3/uL 0.08 PT (9.1-11.1) sec 11.6 H INR (0.9-1.1) 1.2 H APTT (23.6-32.8) sec 26.1 Sodium (136-145) mmol/L 147 H Potassium (3.5-5.1) mmol/L 4.0 Chloride (98-107) mmol/L 109 H Carbon Dioxide (21.0-32.0) mmol/L 30.2 Anion Gap (3-11) mmol/L 7.8 BUN (7-18) mg/dL 19 H Creatinine (0.70-1.30) mg/dL 1.5 H Est GFR (CKD-EPI 2020) (mL/min/1.73m2) 48.25 Glucose (74-106) mg/dL 111 H Calcium (8.5-10.1) mg/dL 9.6 Magnesium (1.8-2.4) mg/dL 1.5 L Total Bilirubin (0.2-1.0) mg/dL 3.32 H AST (15-37) U/L 18 ALT (16-63) U/L 25 Alkaline Phosphatase (46-116) U/L 79 Troponin I (<or=76) ng/L 47 39 NT-Pro-B Natriuret Pep (<300) pg/mL 3744 H Total Protein (6.4-8.2) g/dL 7.5 Albumin (3.4-5.0) g/dL 3.3 L Urine Color (Yellow) Yellow Urine Clarity (Clear) Clear Urine pH (5-8) 6.5 Ur Specific [place] (1.005-1.025) 1.020 Urine Protein (Neg-Trace) mg/dL 100 H Urine Ketones (Negative) mg/dL Negative Urine Blood (Negative) Negative Urine Nitrite (Negative) Negative Urine Bilirubin (Negative) Negative Urine Urobilinogen (Up to 0.2) mg/dL 0.2 Ur Leukocyte Esterase (Negative) Negative Urine RBC (0-2) HPF 0-2 Urine WBC (0-5) HPF 0-2 Ur Epithelial Cells (Negative) HPF Rare Urine Crystals (Negative) HPF Rare Calcium Oxalate Urine Bacteria (Negative) HPF Rare Urine Mucus Not Applicable Ur Culture Indicated? No Urine Glucose (Negative) mg/dL Negative Medical Decision Making Emergent evaluation of shortness of breath. Initial differential includes volume overload, CHF, hepatorenal syndrome, renal failure. Patient has signs of significant volume overload on examination. He has no sick symptoms concerning for infectious etiology. The patient did have a prior tacky dysrhythmia cardiomyopathy that had resolved and her echocardiogram January 2022 had an EF of 45%. No recent echo. Has a watchman secondary to intolerance of anticoagulant. EKG reviewed independently interpreted: Paced rhythm at 56. Lab work was obtained, no leukocytosis or anemia. He has a creatinine of 1.5 which is his baseline. His T. bili is 3.3 which also seems to be baseline for him unclear etiology of this chronic finding. His BNP is 3744 and his chest x-ray indicates cardiomegaly with pulmonary edema. I will give an IV dose of Lasix. On reevaluation the patient was noted to have desaturations to 87% and was placed on supplemental oxygen. At this time I have discussed with the hospitalist feel the patient needs admission for continued gentle in the setting of his renal transplant, diuresis repeat echocardiogram and reassessment of symptoms. Quality:[facility] Related Social Needs: No Data to Display PFSH All Active Problems Dyspnea (Acute) Hypernatremia (Acute) DVT prophylaxis (Acute) Hyperbilirubinemia (Acute) Hypomagnesemia (Acute) Squamous cell skin cancer (Acute) Atypical pigmented skin lesion (Acute) Pigmented skin lesion (Acute) Gout (Chronic) KIDNEY TRANSPLANT (Acute 09/16/15) [facility]-09/16/15 Acute diverticulitis (Acute) Physical deconditioning (Acute) Gait difficulty (Acute) Meibomian gland dysfunction (MGD) of upper and lower eyelid of left eye (Acute ~08/2022) Meibomian gland dysfunction (MGD) of upper and lower eyelid of right eye (Acute ~08/2022) [place] (degenerative) of macula, bilateral (Acute) [place] note 08/15/22 Age-related nuclear cataract, bilateral (Acute) [place] note 08/15/22 Dry mouth (Acute) Periodic limb movement disorder (Acute) Central sleep apnea (Acute) 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 (Acute) Diverticulitis of intestine with perforation (Acute) Pacemaker (Acute) dual lead [employer] [place] 01/31/2022 RIGHT SIDED Presence of Watchman left atrial appendage closure device (Acute) [facility] 05/27 Long-term current use of immunosuppressive biologic agent (Chronic) Vitamin D deficiency (Acute ~05/2022) Osteoarthritis of left knee (Acute) Parkinsonism (Acute) Tremor (Acute) Acute diverticulitis (Acute) - confirmed by CT , inpt at [facility] Bradycardia (Chronic) Vasogenic edema (Acute) Hypertension (Chronic) Hiccups (Acute) 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, tx at [facility], anticoagulant stopped Altered mental status (Acute) Hypertensive retinopathy (Acute ~09/27/20) [place] 09/27/20- MILD TO MODERATE-KB Spinal stenosis (Acute) L5-S1 Subsequent non-ST elevation (NSTEMI) myocardial infarction within 4 weeks of initial infarction (Acute) stents Status post rotator cuff repair (Acute) Postoperative stiffness of total knee replacement (Chronic) Olecranon bursitis, left elbow (Chronic) Arthritis of left elbow (Acute) Tubular adenoma (Acute 09/12/15) 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 Microscopic hematuria (Acute 05/21/12) neg workup [facility]. 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 Need dialysis or transplant. 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 s/p hernia repair b. s/p knee arthroscopy c. s/p unspecified shoulder surgery d. s/p vasectomy Medical History History of diverticulitis (09/14/22) Fistula Obstructive sleep apnea Myocardial infarction Hepatitis C Treated and cured Chronic kidney disease Hypothyroidism CVA (cerebral vascular accident) CHF (congestive heart failure) Diabetes HTN (hypertension) Hyperlipemia GERD (gastroesophageal reflux disease) BPH (benign prostatic hyperplasia) Atrial fibrillation Surgical History History of arthroscopy of knee History of biopsy H/O bladder repair surgery History of hernia repair H/O vasectomy Rotator Cuff Repair left Colonoscopy - MAC 2009 BIOPSY, KIDNEY (10/16/14) [facility]-RIGHT Arthroplasty of knee 2006-right Family History Mother Essential hypertension Father Myocardial infarction Stroke Brother Essential hypertension Neoplasm Social History Smoking/Tobacco Use Status: Current-Occasional Tobacco Type: cigars Tobacco: How many years used: 20 Smoking risk assessment performed?: Yes Alcohol Intake: never Drug use: Occasionally Substance use type: marijuana Adopted: No Caregiver/Support person: Yes Foster care: No Household members: spouse Housing: house Number of Children: 2 number of grandchildren: 1 Communication Needs: None Education Level: high school 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 Pets and animals: Yes Pets and animals: dog(s) Sexually active: No Do you think of yourself as: straight/heterosexual Current gender identity: male What is your relationship status?: How often do you talk on the phone with friends or family?: three or more times per week Do you belong to any clubs or organized social groups?: no Panel score (0-1 are the most socially isolated patients): 2 Idalia/Confucianist: None Special idalia needs: No Seatbelt use: always Helmet use: Yes Helmet use: always Drive intox or ride w/intox 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
--- OUTSIDE RECORDS SUMMARY | 2024-05-16 17:13 | XMS_ITS | Encounter Summary ---
Author Organization [facility] Address [address] [place] [address] Care Team Providers Care Wearing Apparel Presser Name Role Phone Urbano Denis DO Primary Care Provider [phone]- [phone] Encounter Details Date Type Department Care Team (Late st Contact Info) Description 12/24/2021 Lab Requisition [facility] Pathology & Laboratory Medicine - [facility] [address] [place] [address] Outr Resulting Lab, Provider Social History Tobacco Use Types Packs/Day Years Used Date Smoking Tobacco: Unknown Alcohol Use Standard Drinks/Week Comments Not Asked 0 (1 standard drink = 0.6 oz pur e alcohol) Sex and Gender Information Value Date Recorded Sex Assigned at Not on file Legal Sex Male 13:38 EDT Gender Identity Not on file Sexual Orientation Not on file documented as of this encounter Functional Status * Are you deaf or do you have serious difficulty hearing? Answer Date of Assessment Author No 10/16/2014 20:52 Bev Min RN * Are you blind or do you have serious difficulty seeing, even when wearing glasses? Answer Date of Assessment Author No 10/16/2014 20:52 Bev Min RN * Do you have serious difficulty walking or climbing stairs? (5 years old or older) Answer Date of Assessment Author No 10/16/2014 20:52 Bev Min RN * Do you have difficulty dressing or bathing? (5 years old or older) Answer Date of Assessment Author No 10/16/2014 20:52 Bev Min RN * Because of a physical, mental, or emotional condition, do you have difficulty doing errands alone such as visiting a doctor's office or shopping? (15 years old or older) Answer Date of Assessment Author No 10/16/2014 20:52 EDT Bev Merino RN documented as of this encounter Mental Status * Because of a physical, mental, or emotional condition, do you have serious difficulty concentrating, remembering, or making decisions? (5 years old or older) Answer Entry Date Author No 10/16/2014 20:52 EDT Bev Merino RN documented in this encounter Plan of Treatment Not on file documented as of this encounter Procedures Procedure Name Priority Date/Time Associated Diagnosis Comments TACROLIMUS (FK506) Routine 12/24/2021 11 :50 EDT documented in this encounter Results * TACROLIMUS (FK506) (12/24/2021 11:50 EDT) Tacrolimus 5.7 See Note ng/mL 12/25/2021 13:39 EDT [facility] Comment: NOTE: Tacrolimus Therapeutic Range: 3-12 ng/mL (The goal level is based on clinical context). Assayed utilizing [employer] Chemiluminescent technology. ??Values obtained using different assay methods cannot be used interchangeably. Blood VENOUS BLOOD / Unknown 12/24/2021 11:50 EDT 12/24/2021 22:01 EDT us Provider Outr Resulting Lab CHEMISTRY & BLOOD GA S ORDERABLES Final Result [facility] [address] [place] [address] documented in this encounter Visit Diagnoses Not on filedocumented in this encounter Care Teams Wearing Apparel Presser Relationship Specialty Start Date End Date Urbano Denis DO [address] [place] [address] PCP - General 09/27/14 documented as of this encounter
--- OUTSIDE RECORDS SUMMARY | 2024-05-16 17:13 | XMS_ITS | Encounter Summary ---
Author Organization [facility] Address [address] [place] [address] Care Team Providers Care Catheter Builder Name Role Phone Urbano Denis DO Primary Care Provider [phone]- [phone] Encounter Details Date Type Department Care Team (Late st Contact Info) Description 01/30/2022 Lab Requisition [facility] Pathology & Laboratory Medicine - [facility] [address] [place] [address] Outr Resulting Lab, Provider Social History Tobacco [...] Entry Date Author No 10/16/2014 20:52 EDT Bve Merino RN documented in this encounter Plan of Treatment Not on file documented as of this encounter Procedures Procedure Name Priority Date/Time Associated Diagnosis Comments TACROLIMUS (FK506) Routine 01/30/2022 10 :49 EDT documented in this encounter Results * TACROLIMUS (FK506) (01/30/2022 10:49 EDT) Tacrolimus 13.4 See Note ng/mL 01/31/2022 13:56 EDT [facility] Comment: NOTE: Tacrolimus Therapeutic Range: 3-12 ng/mL (The goal level is based on clinical context). Assayed utilizing [employer] Chemiluminescent technology. ??Values obtained using different assay methods cannot be used interchangeably. Blood VENOUS BLOOD / Unknown 01/30/2022 10:49 EDT 01/30/2022 21:58 EDT us Provider Outr Resulting Lab CHEMISTRY & BLOOD GA S ORDERABLES Final Result [facility] [address] [place] [address] documented in this encounter Visit Diagnoses Not on filedocumented in this encounter Care Teams Catheter Builder Relationship Specialty Start Date End Date Urbano Denis DO [address] [place] [address] PCP - General 09/27/14 documented as of this encounter
--- OUTSIDE RECORDS SUMMARY | 2024-05-16 17:13 | XMS_ITS | Encounter Summary ---
Author Organization [facility] Address [address] [place] [address] Care Team Providers Care Data Entry Operator Name Role Phone Urbano Denis DO Primary Care Provider +1- [phone] Encounter Details Date Type Department Care Team (Late st Contact Info) Description 04/24/2021 Lab Requisition [facility] Pathology & Laboratory Medicine - [facility] [address] [place] [address] Outr Resulting Lab, Provider Social History Tobacco [...] 0.0 - 6.5 ng/mL 04/24/2021 17:39 EDT [facility] Blood VENOUS BLOOD / Unknown 04/23/2021 11:45 EDT 04/24/2021 16:43 EDT Narrative [facility] - 04/24/2021 17:39 EDT NOTE: Serum PSA concentration should not be interpreted as absolute evidence for the presence or absence of malignant disease. Assayed on Siemens ADVIA Centaur XPT using chemiluminescent technology.??Values obtained by using different assay methods cannot be used interchangeably. us Provider Outr Resulting Lab CHEMISTRY & BLOOD GA S ORDERABLES Final Result [facility] [address] [place] [address] documented in this encounter Visit Diagnoses Not on filedocumented in this encounter Care Teams Data Entry Operator Relationship Specialty Start Date End Date Urbano Denis DO [address] [place], [place] [address] PCP - General 09/27/14 documented as of this encounter
--- OUTSIDE RECORDS SUMMARY | 2024-05-16 17:13 | XMS_ITS | Encounter Summary ---
Author Organization [facility] Address [address] [place] [address] Care Team Providers Care Project Hire Name Role Phone Urbano Denis DO Primary Care Provider +1- [phone] Encounter Details Date Type Department Care Team (Late st Contact Info) Description 04/04/2024 Lab Requisition [facility] Pathology & Laboratory Medicine - [facility] [address] [place] [address] Lazara Peres DO [address] [place], [place] [id number] Encounter for other general examination Social History Tobacco Use Types Packs/Day [...] No 10/16/2014 20:52 EDT Bev Merino RN * Because of a physical, mental, or emotional condition, do you have difficulty doing errands alone such as visiting a doctor's office or shopping? (15 years old or older) Answer Date of Assessment Author No 10/16/2014 20:52 APRILT Bev Merino RN documented as of this [...] Priority Date/Time Associated Diagnosis Comments SURGICAL PATHOLOGY Today 04/04/2024 13 :55 EDT Encounter for other general examination documented in this encounter Results * SURGICAL PATHOLOGY (04/04/2024 13:55 EDT) Note to Patient The following pathology results have been interpreted by your pathologist and may be available to you before your health provider has had the opportunity to review them. Please allow time for your provider to receive these results and explore management options, if applicable. 04/06/2024 11:13 [facility] Final Diagnosis A. SKIN OF SUPRA PUBIC, EXCISION: - Squamous cell carcinoma in-situ, completely excised. 04/06/2024 11:13 [facility] Attestation By the signature below, the attending physician certifies that they have 1) personally conducted a gross and/or microscopic examination of the described specimen(s), and/or personally interpreted the results of laboratory testing of the described specimen(s), and 2) personally rendered or confirmed the above diagnosis. 04/06/2024 11:13 [facility] at 1113 Clinical History Skin lesion, suture at 12 o'clock 04/06/2024 11:13 [facility] Gross Description A. Received in formalin labelled with proper patient identification (initials T, S) and suprapubic is an elliptical excision of oro skin received with a looped suture at the center of the specimen. The requisition states the suture jacobsen 12 o'clock, however due to the placement and mobility of the looped portion of suture, the true orientation can not be determined. The specimen is 1.2 x 0.8 cm, excised to a depth of 0.2 cm. On the central skin surface there is a oro-erwin scaly lesion (0.9 x 0.7 x 0.2 cm) within which the suture enters. The margin is inked blue. Specimen is sectioned and submitted entirely as tips, reverse en face in A1 and central sections in A2. MCKINLEY BOWER(ASCP) 04/05/2024 8:45 04/06/2024 11:13 EDT [facility] Performing Lab [facility] 04/06/2024 11:13 EDT [facility] Scanned Images 04/06/2024 11:13 EDT [facility] Tissue SPECIMEN FROM SKIN / Unknown 04/04/2024 13:55 EDT 04/04/2024 22:23 EDT us Lazara Peres DO PATHOLOGY ORDERABLES Final Re sult [facility] [address] [place] [address] documented in this encounter Visit Diagnoses Diagnosis Encounter for other general examination documented in this encounter Care Teams Project Hire Relationship Specialty Start Date End Date Urbano Denis DO [address] [place] [address] PCP - General 09/27/14 documented as of this encounter
--- OUTSIDE RECORDS SUMMARY | 2024-05-16 17:13 | XMS_ITS | Encounter Summary ---
Author Organization [facility] Address [address] [place] [address] Care Team Providers Care Elementary Tutor Name Role Phone Urbano Denis DO Primary Care Provider +1- [phone] Encounter Details Date Type Department Care Team (Late st Contact Info) Description 08/20/2023 Lab Requisition [facility] Pathology & Laboratory Medicine - [facility] [address] [place] [address] Outr Resulting Lab, Provider Social History Tobacco [...] Author No 10/16/2014 20:52 Bev Min RN documented as of this encounter Mental Status * Because of a physical, mental, or emotional condition, do you have serious difficulty concentrating, remembering, or making decisions? (5 years old or older) Answer Entry Date Author No 10/16/2014 20:52 Bev Min RN documented in this encounter Plan of [...] 14.4 See Note mg/dL 08/21/2023 8:58 EST [facility] Comment: NOTE: Reference range has not been established for calcium concentration in random urine specimens. Urine URINE / Unknown 08/20/2023 1 4:50 EST 08/20/2023 21:23 EST us Provider Outr Resulting Lab URINALYSIS ORDERABLE S Final Result [facility] [address] [place] [address] * MAGNESIUM,URINE RANDOM (08/20/2023 14:50 EST) Magnesium, Urine 5.0 See Note mg/dL 08/21/2023 9:00 EST [facility] Comment: NOTE: Reference range has not been established for magnesium concentration in random urine specimens. Urine URINE / Unknown 08/20/2023 1 4:50 EST 08/20/2023 21:23 EST us Provider Outr Resulting Lab URINALYSIS ORDERABLE S Final Result Performing Organization Address [facility] Co de Phone Number [facility] [address] [place] [address] * PHOSPHORUS, URINE RANDOM (08/20/2023 14:50 EST) Phosphorous, Urine 28.9 See Note mg/dL 08/21/2023 8:58 EST [facility] Comment: NOTE: Reference range has not been established for phosporous concentration in random urine specimens. Urine URINE / Unknown 08/20/2023 1 4:50 EST 08/20/2023 21:23 EST us Provider Outr Resulting Lab URINALYSIS ORDERABLE S Final Result Performing Organization Address [facility] de Phone Number [facility] [address] [place] [address] documented in this encounter Visit Diagnoses Not on filedocumented in this encounter Care Teams Elementary Tutor Relationship Specialty Start Date End Date Urbano Denis DO [address] [place] [address] PCP - General 09/27/14 documented as of this encounter
--- OUTSIDE RECORDS SUMMARY | 2024-05-16 17:13 | XMS_ITS | Encounter Summary ---
Author Organization [facility] Address [address] [place] [address] Care Team Providers Care Parking Enforcement Manager Name Role Phone Urbano Denis DO Primary Care Provider +1- [phone] Encounter Details Date Type Department Care Team (Late st Contact Info) Description 09/10/2021 Lab Requisition [facility] Pathology & Laboratory Medicine - [facility] [address] [place] [address] Outr Resulting Lab, Provider Social History Tobacco [...] 12.1 See Note ng/mL 09/12/2021 13:59 EST [facility] Comment: NOTE: Therapeutic range is dependent on the clinical situation. Assayed utilizing [employer] Chemiluminescent technology. ??Values obtained using different assay methods cannot be used interchangeably. Blood VENOUS BLOOD / Unknown 09/10/2021 11:25 EST 09/11/2021 16:49 EST us Provider Outr Resulting Lab CHEMISTRY & BLOOD GA S ORDERABLES Final Result Performing Organization Address City/State/[place] Co de Phone Number [facility] [address] [place] [address] documented in this encounter Visit Diagnoses Not on filedocumented in this encounter Care Teams Parking Enforcement Manager Relationship Specialty Start Date End Date Urbano Denis DO [address] [place] [address] PCP - General 09/27/14 documented as of this encounter
--- OUTSIDE RECORDS SUMMARY | 2024-05-16 17:13 | XMS_ITS | Encounter Summary ---
Author Organization [facility] Address [address] [place] [address] Care Team Providers Care Boat Repairer Name Role Phone Urbano Denis DO Primary Care Provider +1- [phone] Encounter Details Date Type Department Care Team (Late st Contact Info) Description 09/12/2022 Lab Requisition [facility] Pathology & Laboratory Medicine - [facility] [address] [place] [address] Outr Resulting Lab, Provider Social History Tobacco [...] 19 - 88 pg/mL 09/12/2022 22:37 EST [facility] Blood VENOUS BLOOD / Unknown 09/12/2022 14:11 EST 09/12/2022 21:45 EST Provider Outr Resulting Lab CHEMISTRY & BLOOD GA S ORDERABLES Final Result [facility] [address] [place] [address] * TACROLIMUS ([id number]) (09/12/2022 14:11 EST) Tacrolimus 14.2 See Note ng/mL 09/13/2022 12:32 EST [facility] Comment: NOTE: Tacrolimus Therapeutic Range: 3-12 ng/mL (The goal level is based on clinical context). Assayed utilizing [employer] Chemiluminescent technology. ??Values obtained using different assay methods cannot be used interchangeably. Blood VENOUS BLOOD / Unknown 09/12/2022 14:11 EST 09/12/2022 21:45 EST us Provider Outr Resulting Lab CHEMISTRY & BLOOD GA S ORDERABLES Final Result [facility] [address] [place] [address] documented in this encounter Visit Diagnoses Not on filedocumented in this encounter Care Teams Boat Repairer Relationship Specialty Start Date End Date Urbano Denis DO [address] [place], [place] [id number] PCP - General 09/27/14 documented as of this encounter
--- OUTSIDE RECORDS SUMMARY | 2024-05-16 17:13 | XMS_ITS | Continuity of Care Document ---
Author Name [facility] Organization [facility] Care Team Providers Care Radiation Control Technician Name Role Phone [facility] Unavailable Unavailable Problems Combined list of problems from Department of Defense and Veterans Affairs facilities. It does not include entries that were removed or entered in error. Problem Status Onset Date Problem Type Date of Resolution Comments Source CAD - Coronary Artery Disease ([facility] 48345580) Active Condition Oct 13, 2022 Entered By: CHARLEEN GONZALES Comment: Hx MIApr 2022 Entered By: CHARLEEN GONZALES Comment: PacemakerApr 2022 Entered By: CHARLEEN GONZALES Comment: Watchman [facility] Diabetes Mellitus Type 2 ([facility] [id number]) [facility] Exposure to potentially hazardous substance Active Condition Oct 13, 2022 Entered By: CHARLEEN GONZALES Comment: Agent orange [facility] History of cerebrovascular accident Active Condition [facility] History of hepatitis C Active Condition Oct 13, 2022 Entered By: CHARLEEN GONZALES Comment: Treated and cured [facility] History of renal transplant Active Condition Oct 13, 2022 Entered By: CHARLEEN GONZALES Comment: given Hep C + kidney [facility] HTN - Hypertension ([facility] [id number]) Active Condition [facility] Hyperlipidemia ([facility] 15015629) Active [facility] Hypothyroidism ([facility] [id number]) Active Condition [facility] 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 Active Condition Oct 13, 2022 Entered By: CHARLEEN GONZALES Comment: x 2 [facility] Diagnosis: ICD-10-CM H90.3 Sensorineural hearing loss, bilateral Active Diagnosis [facility] Diagnosis: ICD-10-CM Z94.0 Kidney transplant status Active Diagnosis [facility] Diagnosis: ICD-10-CM 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 Medication Details Route Status Patient Instructions Prescription Expires Prescription Number Last Dispense Date Ordering Provider Order Date Order Qty Source AMLODIPINE BESYLATE 5MG TAB TAKE ONE TABLET BY MOUTH ONCE DAILY ORAL ACTIVE VALDO GONZALES 2022 [facility] ASCORBIC ACID 500MG TAB TAKE ONE TABLET BY MOUTH ONCE DAILY ORAL ACTIVE VALDO GONZALES 2022 [facility] ASPIRIN 81MG TAB,EC TAKE ONE TABLET BY MOUTH ONCE DAILY ORAL ACTIVE VALDO GONZALES 2022 [facility] ATORVASTATI N CA 40MG TAB TAKE ONE TABLET BY MOUTH ONCE DAILY ORAL ACTIVE VALDO GONZALES 2022 [facility] CALCITRIOL 0.5MCG CAP TAKE 1 CAPSULE BY MOUTH ONCE DAILY ORAL ACTIVE VALDO GONZALES 2022 [facility] GLIPIZIDE 10MG TAB TAKE ONE TABLET BY MOUTH TWICE A DAY ORAL ACTIVE VALDO GONZALES 2022 [facility] HYDRALAZINE HCL 100MG TAB TAKE ONE TABLET BY MOUTH TWICE A DAY ORAL ACTIVE VALDO GONZALES 2022 [facility] LEVOTHYROXI NE NA 137MCG TAB (SYNTHROID) TAKE ONE TABLET BY MOUTH EVERY MORNING ORAL ACTIVE VALDO GONZALES 2022 [facility] MAGNESIUM GLUCONATE 500MG TAB TAKE TWO TABLETS BY MOUTH EVERY MORNING WITH BREAKFAS T ORAL ACTIVE VALDO GONZALES 2022 [facility] METOPROLOL SUCCINATE 50MG TAB,SA TAKE ONE TABLET BY MOUTH TWICE A DAY ORAL ACTIVE VALDO GONZALES 2022 [facility] MULTIVITAMI NS W/MINERALS CAP/TAB TAKE ONE CAP/TAB BY MOUTH ONCE DAILY ORAL ACTIVE VALDO GONZALES 2022 [facility] MYCOPHENOLA TE MOFETIL (CELLCEPT) 250MG CAP TAKE 1 CAPSULE BY MOUTH TWICE A DAY ORAL ACTIVE VALDO GONZALES N 2022 [facility] TACROLIMUS (PROGRAF) 1MG CAP TAKE 1 CAPSULE BY MOUTH EVERY MORNING AND TAKE 2 CAPSULES BY MOUTH EVERY EVENING ORAL ACTIVE VALDO GONZALES N 2022 [facility] TAMSULOSIN HCL 0.4MG CAP TAKE 1 CAPSULE BY MOUTH ONCE DAILY ORAL ACTIVE VALDO GONZALES N 2022 [facility] Allergies, Adverse Reactions, Alerts Combined list of allergies from Department of Defense and Veterans Affairs facilities. It does not include entries that were removed or entered in error. Substance Category Reaction Severity Reaction type Status Date Reported Comments Source MONA Propensity to adverse reactions to substance (finding) active 3 [facility] Immunizations Combined list of available immunizations from the Department of [facility] and [facility] facilities. Immunization Series Date Given Administered By Site Reaction Lot Number CVX Code Drug Pattern Grader Cutter Status Comments Source COVID-19 (PFIZER), MRNA, LNP-S, PF, 30 MCG/0.3 ML DOSE 2021 208 complet [facility] INFLUENZA, UNSPECIFIED FORMULATION 2021 88 complet [facility] COVID-19 (MODERNA), MRNA, LNP-S, PF, 100 MCG/0.5ML DOSE OR 50 MCG/0.25ML DOSE 3 2020 207 complet [facility] COVID-19 (MODERNA), MRNA, LNP-S, PF, 100 MCG/0.5ML DOSE OR 50 MCG/0.25ML DOSE 2 2020 207 complet [facility] COVID-19 (MODERNA), MRNA, LNP-S, PF, 100 MCG/0.5ML DOSE OR 50 MCG/0.25ML DOSE 1 2020 207 complet [facility] Results Combined list of recent chemistry, hematology and other laboratory results from Department of Defense and Veterans Affairs, ranging from 15 months to all on record, depending upon the facility. Order Name Results Value Reference Range Date Interpretation Specimen Comments Source CBC PROFILE LEUKOCYTES [#/VOLUME] IN BLOOD BY AUTOMATED COUNT 10.3 10*3/uL 4.5 - 11.0 10/01 Specimen Type: BLOOD No comment entered. Ordering Provider: CHARLEEN GONZALES Report Released Date/Time: Sep 03, 2022 12:59 PM Reporting Lab: [facility] [address] [facility] [address] Performing Lab: [facility] [address] [facility] [address] [facility] CBC PROFILE ERYTHROCYTES [#/VOLUME] IN BLOOD BY AUTOMATED COUNT 4.54 10*6/uL 4.23 - 5.66 10/01 Specimen Type: BLOOD No comment entered. Ordering Provider: CHARLEEN GONZALES Report Released Date/Time: Sep 03, 2022 12:59 PM Reporting Lab: [facility] [address] [facility] [address] Performing Lab: [facility] [address] [facility] [address] [facility] CBC PROFILE HEMOGLOBIN [MASS/VOLUME ] IN BLOOD 13.8 g/dL 12.8 - 17 10/01 Specimen Type: BLOOD No comment entered. Ordering Provider: CHARLEEN GONZALES Report Released Date/Time: Sep 03, 2022 12:59 PM Reporting Lab: [facility] [address] [facility] [address] Performing Lab: [facility] [address] [facility] [address] [facility] CBC PROFILE HEMATOCRIT [VOLUME FRACTION] OF BLOOD BY AUTOMATED COUNT 41.8 39.2 - 50.4 10/01 Specimen Type: BLOOD No comment entered. Ordering Provider: CHARLEEN GONZALES Report Released Date/Time: Sep 03, 2022 12:59 PM Reporting Lab: [facility] [address] [facility] [address] Performing Lab: [facility] [address] [facility] [address] [facility] CBC PROFILE MCV [ENTITIC VOLUME] BY AUTOMATED COUNT 92.1 fL 82 - 99 10/01 Specimen Type: BLOOD No comment entered. Ordering Provider: CHARLEEN GONZALES Report Released Date/Time: Sep 03, 2022 12:59 PM Reporting Lab: [facility] [address] [facility] [address] Performing Lab: [facility] [address] [facility] [address] [facility] CBC PROFILE MCH [ENTITIC MASS] BY AUTOMATED COUNT 30.4 pg 26.2 - 32.6 10/01 Specimen Type: BLOOD No comment entered. Ordering Provider: CHARLEEN GONZALES Report Released Date/Time: Sep 03, 2022 12:59 PM Reporting Lab: [facility] [address] [facility] [address] Performing Lab: [facility] [address] [facility] [address] [facility] CBC PROFILE MCHC [MASS/VOLUME ] BY AUTOMATED COUNT 33.0 g/dL 30.8 - 35.1 10/01 Specimen Type: BLOOD No comment entered. Ordering Provider: CHARLEEN GONZALES Report Released Date/Time: Sep 03, 2022 12:59 PM Reporting Lab: [facility] [address] [facility] [address] Performing Lab: [facility] [address] [facility] [address] [facility] CBC PROFILE PLATELETS [#/VOLUME] IN BLOOD BY AUTOMATED COUNT 270 10*3/uL 140 - 360 10/01 Specimen Type: BLOOD No comment entered. Ordering Provider: CHARLEEN GONZALES Report Released Date/Time: Sep 03, 2022 12:59 PM Reporting Lab: [facility] [address] [facility] [address] Performing Lab: [facility] [address] [facility] [address] [facility] CBC PROFILE PLATELET MEAN VOLUME [ENTITIC VOLUME] IN BLOOD BY AUTOMATED COUNT 10.3 fL 9.2 - 12.4 10/01 Specimen Type: BLOOD No comment entered. Ordering Provider: CHARLEEN GONZALES Report Released Date/Time: Sep 03, 2022 12:59 PM Reporting Lab: [facility] [address] [facility] [address] Performing Lab: [facility] [address] [facility] [address] [facility] CBC PROFILE ERYTHROCYTE DISTRIBUTION WIDTH [RATIO] BY AUTOMATED COUNT 13.2 12.0 - 16.0 10/01 Specimen Type: BLOOD No comment entered. Ordering Provider: CHARLEEN GONZALES Report Released Date/Time: Sep 03, 2022 12:59 PM Reporting Lab: [facility] [address] [facility] [address] Performing Lab: [facility] [address] [facility] [address] [facility] CBC PROFILE LYMPHOCYTES/ 100 LEUKOCYTES IN BLOOD BY AUTOMATED COUNT 17.2 14.0 - 42.3 10/01 Specimen Type: BLOOD No comment entered. Ordering Provider: CHARLEEN GONZALES Report Released Date/Time: Sep 03, 2022 12:59 PM Reporting Lab: [facility] [address] [facility] [address] Performing Lab: [facility] [address] [facility] [address] [facility] CBC PROFILE MONOCYTES/10 0 LEUKOCYTES IN BLOOD BY AUTOMATED COUNT 5.7 5.1 - 13.7 10/01 Specimen Type: BLOOD No comment entered. Ordering Provider: CHARLEEN GONZALES Report Released Date/Time: Sep 03, 2022 12:59 PM Reporting Lab: [facility] [address] [facility] [address] Performing Lab: [facility] [address] [facility] [address] [facility] CBC PROFILE GRANULOCYTES /100 LEUKOCYTES IN BLOOD BY AUTOMATED COUNT 67.4 43.7 - 75.8 10/01 Specimen Type: BLOOD No comment entered. Ordering Provider: CAHRLEEN GONZALES Report Released Date/Time: Sep 03, 2022 12:59 PM Reporting Lab: [facility] [address] [facility] [address] Performing Lab: [facility] [address] [facility] [address] [facility] CBC PROFILE EOSINOPHILS/ 100 LEUKOCYTES IN BLOOD BY AUTOMATED COUNT 7.8 0.4 - 6.8 10/01 H Specimen Type: BLOOD No comment entered. Ordering Provider: CHARLEEN GONZALES Report Released Date/Time: Sep 03, 2022 12:59 PM Reporting Lab: [facility] [address] [facility] [address] Performing Lab: [facility] [address] [facility] [address] [facility] CBC PROFILE BASOPHILS/10 0 LEUKOCYTES IN BLOOD BY AUTOMATED COUNT 1.5 0.1 - 2.0 10/01 Specimen Type: BLOOD No comment entered. Ordering Provider: CHARLEEN GONZALES Report Released Date/Time: Sep 03, 2022 12:59 PM Reporting Lab: [facility] [address] [facility] [address] Performing Lab: [facility] [address] [facility] [address] [facility] CBC PROFILE IMMATURE GRANULOCYTES /100 LEUKOCYTES IN BLOOD BY AUTOMATED COUNT 0.4 0.0 - 0.7 10/01 Specimen Type: BLOOD No comment entered. Ordering Provider: CHARLEEN GONZALES Report Released Date/Time: Sep 03, 2022 12:59 PM Reporting Lab: [facility] [address] [facility] [address] Performing Lab: [facility] [address] [facility] [address] [facility] CBC PROFILE NUCLEATED ERYTHROCYTES [#/VOLUME] IN BLOOD BY AUTOMATED COUNT 0.0 /100{WB Cs} 0.0 - 0.0 10/01 Specimen Type: BLOOD No comment entered. Ordering Provider: CHARLEEN GONZALES Report Released Date/Time: Sep 03, 2022 12:59 PM Reporting Lab: [facility] [address] [facility] [address] Performing Lab: [facility] [address] [facility] [address] [facility] CBC PROFILE IMMATURE GRANULOCYTES [#/VOLUME] IN BLOOD 0.0 10*3/uL 0 - 0.06 10/01 Specimen Type: BLOOD No comment entered. Ordering Provider: CHARLEEN GONZALES Report Released Date/Time: Sep 03, 2022 12:59 PM Reporting Lab: [facility] [address] [facility] [address] Performing Lab: [facility] [address] [facility] [address] [facility] CBC PROFILE BASOPHILS [#/VOLUME] IN BLOOD BY AUTOMATED COUNT 0.2 10*3/uL 0.01 - 0.13 10/01 H Specimen Type: BLOOD No comment entered. Ordering Provider: CHARLEEN GONZALES Report Released Date/Time: Sep 03, 2022 12:59 PM Reporting Lab: [facility] [address] [facility] [address] Performing Lab: [facility] [address] [facility] [address] [facility] CBC PROFILE EOSINOPHILS [#/VOLUME] IN BLOOD BY AUTOMATED COUNT 0.8 10*3/uL 0.03 - 0.44 10/01 H Specimen Type: BLOOD No comment entered. Ordering Provider: CHARLEEN GONZALES Report Released Date/Time: Sep 03, 2022 12:59 PM Reporting Lab: [facility] [address] [facility] [address] Performing Lab: [facility] [address] [facility] [address] [facility] CBC PROFILE LYMPHOCYTES [#/VOLUME] IN BLOOD BY AUTOMATED COUNT 1.8 10*3/uL 1.0 - 3.2 10/01 Specimen Type: BLOOD No comment entered. Ordering Provider: CHARLEEN GONZALES Report Released Date/Time: Sep 03, 2022 12:59 PM Reporting Lab: [facility] [address] [facility] [address] Performing Lab: [facility] [address] [facility] [address] [facility] CBC PROFILE MONOCYTES [#/VOLUME] IN BLOOD BY AUTOMATED COUNT 0.6 10*3/uL 0.3 - 1.1 10/01 Specimen Type: BLOOD No comment entered. Ordering Provider: CHARLEEN GONZALES Report Released Date/Time: Sep 03, 2022 12:59 PM Reporting Lab: [facility] [address] [facility] [address] Performing Lab: [facility] [address] [facility] [address] [facility] CBC PROFILE NEUTROPHILS [#/VOLUME] IN BLOOD BY AUTOMATED COUNT 7.0 10*3/uL 2.2 - 7.6 10/01 Specimen Type: BLOOD No comment entered. Ordering Provider: CHARLEEN GONZALES Report Released Date/Time: Sep 03, 2022 12:59 PM Reporting Lab: [facility] [address] [facility] [address] Performing Lab: [facility] [address] [facility] [address] [facility] CBC PROFILE NUCLEATED ERYTHROCYTES [#/VOLUME] IN BLOOD BY AUTOMATED COUNT 0.00 10*3/uL 0 - 0 10/01 Specimen Type: BLOOD No comment entered. Ordering Provider: CHARLEEN GONZALES Report Released Date/Time: Sep 03, 2022 12:59 PM Reporting Lab: [facility] [address] [facility] [address] Performing Lab: [facility] [address] [facility] [address] [facility] LIPOPROTEI N CHOLESTERO L FRACT. PANEL CHOLESTEROL [MASS/VOLUME ] IN SERUM OR PLASMA 104 mg/dL 0 - 199 10/01 Specimen Type: PLASMA Comment: Tests performed on Number 100 (405) SN:[id number] Ordering Provider: CHARLEEN GONZALES Report Released Date/Time: Sep 03, 2022 12:59 PM Reporting Lab: [facility] [address] [facility] [address] Performing Lab: [facility] [address] [facility] [address] [facility] LIPOPROTEI N CHOLESTERO L FRACT. PANEL TRIGLYCERIDE [MASS/VOLUME ] IN SERUM OR PLASMA 219 mg/dL 0 - 149 10/01 H Specimen Type: PLASMA Comment: Tests performed on Number 100 (405) SN:[id number] Ordering Provider: CHARLEEN GONZALES Report Released Date/Time: Sep 03, 2022 12:59 PM Reporting Lab: [facility] [address] [facility] [address] Performing Lab: [facility] [address] [facility] [address] [facility] LIPOPROTEI N CHOLESTERO L FRACT. PANEL CHOLESTEROL IN HDL [MASS/VOLUME ] IN SERUM OR PLASMA 31 mg/dL 40 10/01 L Specimen Type: PLASMA Comment: Tests performed on [employer] Broad[employer] Maintenance Technician (405) SN:[id number] Ordering Provider: CHARLEEN GONZALES Report Released Date/Time: Sep 03, 2022 12:59 PM Reporting Lab: [facility] [address] [facility] [address] Performing Lab: [facility] [address] [facility] [address] [facility] LIPOPROTEI N CHOLESTERO L FRACT. PANEL CHOLESTEROL IN LDL [MASS/VOLUME ] IN SERUM OR PLASMA BY CALCULATION 29 mg/dL 0 - 129 10/01 Specimen Type: PLASMA Comment: Tests performed on [employer] Maintenance Technician (405) SN:[id number] Ordering Provider: CHARLEEN GONZALES Report Released Date/Time: Sep 03, 2022 12:59 PM Reporting Lab: [facility] [address] [facility] [address] Performing Lab: [facility] [address] [facility] [address] [facility] LIVER PROFILE PROTEIN [MASS/VOLUME ] IN SERUM OR PLASMA 7.3 g/dL 6.0 - 8.5 10/01 Specimen Type: PLASMA Comment: Tests performed on [employer] Maintenance Technician (405) SN:[id number] Ordering Provider: CHARLEEN GONZALES Report Released Date/Time: Sep 03, 2022 12:59 PM Reporting Lab: [facility] [address] [facility] [address] Performing Lab: [facility] [address] [facility] [address] [facility] LIVER PROFILE ALBUMIN [MASS/VOLUME ] IN SERUM OR PLASMA 3.4 g/dL 3.2 - 5.0 10/01 Specimen Type: PLASMA Comment: Tests performed on [employer] Maintenance Technician (405) SN:[id number] Ordering Provider: CHARLEEN GONZALES Report Released Date/Time: Sep 03, 2022 12:59 PM Reporting Lab: [facility] [address] [facility] [address] Performing Lab: [facility] [address] [facility] [address] [facility] LIVER PROFILE BILIRUBIN.TO J CARLOS [MASS/VOLUME ] IN SERUM OR PLASMA 2.1 mg/dL 0.2 - 1.2 10/01 H Specimen Type: PLASMA Comment: Tests performed on [employer] Maintenance Technician (405) SN:[id number] Ordering Provider: CHARELEN GONZALES Report Released Date/Time: Sep 03, 2022 12:59 PM Reporting Lab: [facility] [address] [facility] [address] Performing Lab: [facility] [address] [facility] [address] [facility] LIVER PROFILE BILIRUBIN.DI RECT [MASS/VOLUME ] IN SERUM OR PLASMA 0.5 mg/dL 0 - 0.5 10/01 Specimen Type: PLASMA Comment: Tests performed on [employer] (405) SN:[id number] Ordering Provider: CHARLEEN GONZALES Report Released Date/Time: Sep 03, 2022 12:59 PM Reporting Lab: [facility] [address] [facility] [address] Performing Lab: [facility] [address] [facility] [address] [facility] LIVER PROFILE ALKALINE PHOSPHATASE [ENZYMATIC ACTIVITY/VOL UME] IN SERUM OR PLASMA 78 U/L 40 - 150 10/01 Specimen Type: PLASMA Comment: Tests performed on [employer] (405) SN:[id number] Ordering Provider: CHARLEEN GONZALES Report Released Date/Time: Sep 03, 2022 12:59 PM Reporting Lab: [facility] [address] [facility] [address] Performing Lab: [facility] [address] [facility] [address] [facility] LIVER PROFILE ALANINE AMINOTRANSFE RASE [ENZYMATIC ACTIVITY/VOL UME] IN SERUM OR PLASMA 29 U/L 7 - 52 10/01 Specimen Type: PLASMA Comment: Tests performed on [employer] (405) SN:[id number] Ordering Provider: CHARLEEN GONZALES Report Released Date/Time: Sep 03, 2022 12:59 PM Reporting Lab: [facility] [address] [facility] [address] Performing Lab: [facility] [address] [facility] [address] [facility] LIVER PROFILE ASPARTATE AMINOTRANSFE RASE [ENZYMATIC ACTIVITY/VOL UME] IN SERUM OR PLASMA 20 U/L 5 - 34 10/01 Specimen Type: PLASMA Comment: Tests performed on [employer] Maintenance Technician (405) SN:[id number] Ordering Provider: CHARLEEN GONZALES Report Released Date/Time: Sep 03, 2022 12:59 PM Reporting Lab: [facility] [address] [facility] [address] Performing Lab: [facility] [address] [facility] [address] [facility] LIVER PROFILE FIB-4 SCORE 1.02 {index} <2.67 - 2.67 10/01 Specimen Type: PLASMA Comment: Tests performed on [employer] Maintenance Technician (405) SN:[id number] Ordering Provider: CHARLEEN GONZALES Report Released Date/Time: Sep 03, 2022 12:59 PM Reporting Lab: [facility] [address] [facility] [address] Performing Lab: [facility] [address] [facility] [address] [facility] MAGNESIUM MAGNESIUM [MASS/VOLUME ] IN SERUM OR PLASMA 1.4 mg/dL 1.6 - 2.6 10/01 L Specimen Type: PLASMA Comment: Tests performed on [employer] Maintenance Technician (405) SN:[id number] Ordering Provider: CHARLEEN GONZALES Report Released Date/Time: Sep 03, 2022 12:59 PM Reporting Lab: [facility] [address] [facility] [address] Performing Lab: [facility] [address] [facility] [address] [facility] MICROALBUM IN/CREATIN INE RATIO PANEL CREATININE [MASS/VOLUME ] IN URINE 128.0 mg/dL 10/01 Specimen Type: URINE No comment entered. Ordering Provider: CHARLEEN GONZALES Report Released Date/Time: Sep 03, 2022 12:59 PM Reporting Lab: [facility] [address] [facility] [address] Performing Lab: [facility] [address] [facility] [address] [facility] MICROALBUM IN/CREATIN INE RATIO PANEL MICROALBUMIN [MASS/VOLUME ] IN URINE 14.9 mg/dL 0.0 - 29.9 10/01 Specimen Type: URINE No comment entered. Ordering Provider: CHARLEEN GONZALES Report Released Date/Time: Sep 03, 2022 12:59 PM Reporting Lab: [facility] [address] [facility] [address] Performing Lab[facility] [address] [facility] [address] [facility]/CREATIN INE RATIO PANEL MICROALBUMIN /CREATININE [MASS RATIO] IN URINE 116.4 mg/g 0.0 - 29.9 10/01 H Specimen Type: URINE No comment entered. Ordering Provider: CHARLEEN GONZALES Report Released Date/Time: Sep 03, 2022 12:59 PM Reporting Lab: [facility] [address] [facility] [address] [facility] [address] [facility] [facility] [address] [facility] P4 GLU,BUN,CR EAT,LYTES, CA UREA NITROGEN [MASS/VOLUME ] IN SERUM OR PLASMA 19 mg/dL 7 - 25 10/01 Specimen Type: PLASMA Comment: Tests performed on Number 100 (405) SN:[id number] Ordering Provider: CHARLEEN GONZALES Report Released Date/Time: Sep 03, 2022 12:59 PM Reporting Lab: [facility] [address] [facility] [address] Performing Lab: [facility] [address] [facility] [address] [facility] P4 GLU,BUN,CR EAT,LYTES, CA SODIUM [MOLES/VOLUM E] IN SERUM OR PLASMA 140 mmol/L 135 - 145 10/01 Specimen Type: PLASMA Comment: Tests performed on Number 100 (405) SN:[id number] Ordering Provider: CHARLEEN GONZALES Report Released Date/Time: Sep 03, 2022 12:59 PM Reporting Lab: [facility] [address] [facility] [address] Performing Lab: [facility] [address] [facility] [address] [facility] P4 GLU,BUN,CR EAT,LYTES, CA POTASSIUM [MOLES/VOLUM E] IN SERUM OR PLASMA 3.7 mmol/L 3.5 - 5.0 10/01 Specimen Type: PLASMA Comment: Tests performed on [employer] Broad[employer] Maintenance Technician (405) SN:[id number] Ordering Provider: CHARLEEN GONZALES Report Released Date/Time: Sep 03, 2022 12:59 PM Reporting Lab: [facility] [address] [facility] [address] Performing Lab: [facility] [address] [facility] [address] [facility] P4 GLU,BUN,CR EAT,LYTES, CA CHLORIDE [MOLES/VOLUM E] IN SERUM OR PLASMA 105 mmol/L 100 - 110 10/01 Specimen Type: PLASMA Comment: Tests performed on [employer] Broad[employer] Maintenance Technician (405) SN:[id number] Ordering Provider: CHARLEEN GONZALES Report Released Date/Time: Sep 03, 2022 12:59 PM Reporting Lab: [facility] [address] [facility] [address] Performing Lab: [facility] [address] [facility] [address] [facility] P4 GLU,BUN,CR EAT,LYTES, CA CARBON DIOXIDE, TOTAL [MOLES/VOLUM E] IN SERUM OR PLASMA 27 mmol/L 20 - 30 10/01 Specimen Type: PLASMA Comment: Tests performed on [employer] (405) SN:[id number] Ordering Provider: CHARLEEN GONZALES Report Released Date/Time: Sep 03, 2022 12:59 PM Reporting Lab: [facility] [address] [facility] [address] Performing Lab: [facility] [address] [facility] [address] [facility] P4 GLU,BUN,CR EAT,LYTES, CA ANION GAP IN SERUM OR PLASMA 8 mmol/L 4 - 16 10/01 Specimen Type: PLASMA Comment: Tests performed on [employer] (405) SN:[id number] Ordering Provider: CHARLEEN GONZALES Report Released Date/Time: Sep 03, 2022 12:59 PM Reporting Lab: [facility] [address] [facility] [address] Performing Lab: [facility] [address] [facility] [address] [facility] P4 GLU,BUN,CR EAT,LYTES, CA GLUCOSE [MASS/VOLUME ] IN SERUM OR PLASMA 162 mg/dL 65 - 100 10/01 H Specimen Type: PLASMA Comment: Tests performed on [employer] (405) SN:[id number] Ordering Provider: CHARLEEN GONZALES Report Released Date/Time: Sep 03, 2022 12:59 PM Reporting Lab: [facility] [address] [facility] [address] Performing Lab: [facility] [address] [facility] [address] [facility] P4 GLU,BUN,CR EAT,LYTES, CA CREATININE [MASS/VOLUME ] IN SERUM OR PLASMA 1.40 mg/dL 0.5 - 1.5 10/01 Specimen Type: PLASMA Comment: Tests performed on Number 100 (405) SN:[id number] Ordering Provider: CHARLEEN GONZALES Report Released Date/Time: Sep 03, 2022 12:59 PM Reporting Lab: [facility] [address] [facility] [address] Performing Lab: [facility] [address] [facility] [address] [facility] P4 GLU,BUN,CR EAT,LYTES, CA CALCIUM [MASS/VOLUME ] IN SERUM OR PLASMA 9.7 mg/dL 8.5 - 10.5 10/01 Specimen Type: PLASMA Comment: Tests performed on Number 100 (405) SN:[id number] Ordering Provider: CHARLEEN GONZALES Report Released Date/Time: Sep 03, 2022 12:59 PM Reporting Lab: [facility] [address] [facility] [address] Performing Lab: [facility] [address] [facility] [address] [facility] P4 GLU,BUN,CR EAT,LYTES, CA eGFR(CKD-EPI 2020) 53 mL/min 60 10/01 L Specimen Type: PLASMA Comment: Tests performed on Number 100 (405) SN:[id number] Ordering Provider: CHARLEEN GONZALES Report Released Date/Time: Sep 03, 2022 12:59 PM Reporting Lab: [facility] [address] [facility] [address] Performing Lab: [facility] [address] [facility] [address] [facility] TSH THYROTROPIN [UNITS/VOLUM E] IN SERUM OR PLASMA 0.73 u[IU]/m L 0.35 - 5.00 10/01 Specimen Type: SERUM No comment entered. Ordering Provider: CHARLEEN GONZALES Report Released Date/Time: Sep 03, 2022 12:59 PM Reporting Lab: [facility] [address] [facility] [address] Performing Lab: [facility] [address] [facility] [address] [facility] URINALYSIS W/REFLEX TO CULTURE COLOR OF URINE Yellow 10/01 Specimen Type: URINE No comment entered. Ordering Provider: CHARLEEN GONZALES Report Released Date/Time: Sep 03, 2022 12:59 PM Reporting Lab: [facility] [address] [facility] [address] Performing Lab: [facility] [address] [facility] [address] [facility] URINALYSIS W/REFLEX TO CULTURE SPECIFIC GRAVITY OF URINE BY REFRACTOMETR Y 1.024 1.003 - 1.030 10/01 Specimen Type: URINE No comment entered. Ordering Provider: CHARLEEN GONZALES Report Released Date/Time: Sep 03, 2022 12:59 PM Reporting Lab: [facility] [address] [facility] [address] Performing Lab: [facility] [address] [facility] [address] [facility] URINALYSIS W/REFLEX TO CULTURE UROBILINOGEN [MASS/VOLUME ] IN URINE <2.0mg/ dL <2.0 - 2.0 10/01 Specimen Type: URINE No comment entered. Ordering Provider: CHARLEEN GONZALES Report Released Date/Time: Sep 03, 2022 12:59 PM Reporting Lab: [facility] [address] [facility] [address] Performing Lab: [facility] [address] [facility] [address] [facility] URINALYSIS W/REFLEX TO CULTURE BILIRUBIN.TO J CARLOS [PRESENCE] IN URINE BY TEST STRIP NEG 10/01 Specimen Type: URINE No comment entered. Ordering Provider: CHARLEEN GONZALES Report Released Date/Time: Sep 03, 2022 12:59 PM Reporting Lab: [facility] [address] [facility] [address] Performing Lab: [facility] [address] [facility] [address] [facility] URINALYSIS W/REFLEX TO CULTURE KETONES [PRESENCE] IN URINE NEGmg/d L 10/01 Specimen Type: URINE No comment entered. Ordering Provider: CHARLEEN GONZALES Report Released Date/Time: Sep 03, 2022 12:59 PM Reporting Lab: [facility] [address] [facility] [address] Performing Lab: [facility] [address] [facility] [address] [facility] URINALYSIS W/REFLEX TO CULTURE GLUCOSE [MASS/VOLUME ] IN URINE BY TEST STRIP NEGmg/d L 10/01 Specimen Type: URINE No comment entered. Ordering Provider: CHARLEEN GONZALES Report Released Date/Time: Sep 03, 2022 12:59 PM Reporting Lab: [facility] [address] [facility] [address] Performing Lab: [facility] [address] [facility] [address] [facility] URINALYSIS W/REFLEX TO CULTURE PROTEIN [MASS/VOLUME ] IN URINE BY TEST STRIP TRACEmg /dL 10/01 Specimen Type: URINE No comment entered. Ordering Provider: CHARLEEN GONZALES Report Released Date/Time: Sep 03, 2022 12:59 PM Reporting Lab: [facility] [address] [facility] [address] Performing Lab: [facility] [address] [facility] [address] [facility] URINALYSIS W/REFLEX TO CULTURE PH OF URINE BY TEST STRIP 6.5 5 - 8 10/01 Specimen Type: URINE No comment entered. Ordering Provider: CHARLEEN GONZALES Report Released Date/Time: Sep 03, 2022 12:59 PM Reporting Lab: [facility] [address] [facility] [address] Performing Lab: [facility] [address] [facility] [address] [facility] URINALYSIS W/REFLEX TO CULTURE LEUKOCYTES [#/AREA] IN URINE SEDIMENT BY MICROSCOPY HIGH POWER FIELD 3 /[HPF] 0 - 5 10/01 Specimen Type: URINE No comment entered. Ordering Provider: CHARLEEN GONZALES Report Released Date/Time: Sep 03, 2022 12:59 PM Reporting Lab: [facility] [address] [facility] [address] Performing Lab: [facility] [address] [facility] [address] [facility] URINALYSIS W/REFLEX TO CULTURE ERYTHROCYTES [#/AREA] IN URINE SEDIMENT BY MICROSCOPY HIGH POWER FIELD 4 /[HPF] 0 - 3 10/01 H Specimen Type: URINE No comment entered. Ordering Provider: CHARLEEN GONZALES Report Released Date/Time: Sep 03, 2022 12:59 PM Reporting Lab: [facility] [address] [facility] [address] Performing Lab: [facility] [address] [facility] [address] [facility] URINALYSIS W/REFLEX TO CULTURE APPEARANCE OF URINE CLEAR 10/01 Specimen Type: URINE No comment entered. Ordering Provider: CHARLEEN GONZALES Report Released Date/Time: Sep 03, 2022 12:59 PM Reporting Lab: [facility] [address] [facility] [address] Performing Lab: [facility] [address] [facility] [address] [facility] URINALYSIS W/REFLEX TO CULTURE HEMOGLOBIN [PRESENCE] IN URINE NEG 10/01 Specimen Type: URINE No comment entered. Ordering Provider: CHARLEEN GONZALES Report Released Date/Time: Sep 03, 2022 12:59 PM Reporting Lab: [facility] [address] [facility] [address] Performing Lab: [facility] [address] [facility] [address] [facility] URINALYSIS W/REFLEX TO CULTURE NITRITE [PRESENCE] IN URINE BY TEST STRIP NEG 10/01 Specimen Type: URINE No comment entered. Ordering Provider: CHARLEEN GONZALES Report Released Date/Time: Sep 03, 2022 12:59 PM Reporting Lab: [facility] [address] [facility] [address] Performing Lab: [facility] [address] [facility] [address] [facility] URINALYSIS W/REFLEX TO CULTURE LEUKOCYTES [PRESENCE] IN URINE NEG 10/01 Specimen Type: URINE No comment entered. Ordering Provider: CHARLEEN GONZALES Report Released Date/Time: Sep 03, 2022 12:59 PM Reporting Lab: [facility] [address] [facility] [address] Performing Lab: [facility] [address] [facility] [address] [facility] VIT D 25-OH(J) CALCIFEROL (VIT D2) [MASS/VOLUME ] IN SERUM OR PLASMA 37.7 ng/mL 20 - 50 10/01 Specimen Type: SERUM No comment entered. Ordering Provider: CHARLEEN GONZALES Report Released Date/Time: Sep 03, 2022 12:59 PM Reporting Lab: [facility] [address] [facility] [address] Performing Lab: [facility] [address] [facility] [address] [facility] VITAMIN B-12 COBALAMIN (VITAMIN B12) [MASS/VOLUME ] IN SERUM OR PLASMA 840 pg/mL 200 - 900 10/01 Specimen Type: SERUM No comment entered. Ordering Provider: CHARLEEN GONZALES Report Released Date/Time: Sep 03, 2022 12:59 PM Reporting Lab: [facility] [address] [facility] [address] Performing Lab: [facility] [address] [facility] [address] [facility] Encounters Combined list of: 1) Encounters from Department of Veterans Affairs facilities going back up to thelast 18 months. 2) Encounters from the Department of Defense facilities going back up to 280 months. Location Location Details Encounter Type Encounter Number Reason For Visit Attending Provider ADM Date DC Date Status Disposition Source [facility] OFFICE O/P [place] 60-74 MIN [id number] Diagnos is: ICD-10- CM Z77.29 Contact with and exposur e to other hazardo us substan germán<br/ > CHARLEEN GONZALES 10/08 [facility] UNLISTED SPEC DERM SVC/PX [id number] Diagnos is: ICD-10- CM Z13.89 Encount er for screeni ng for other disorde r
Celeste KIRKLAND 11/04 [facility] Outpatient Encounter [id number]. Diagnos is: ICD-10- CM D48.5 Neoplas m of uncerta in behavio r of skin
MARYSOLRAMYA AGUILAR 11/04 [facility] Outpatient Encounter [id number] 11/11 [facility] OFFICE O/P NEW LOW 30-44 MIN [id number] Diagnos is: ICD-10- CM Z94.0 Kidney transpl ant status< br/> RAMYA GREGG GIELSIE 03/23 [facility] Outpatient Encounter [id number] 06/02 [facility] Outpatient Encounter [id number] 07/15 [facility] HEARING AID EXAM BOTH EARS [id number] Diagnos is: ICD-10- CM H90.3 Sensori neural hearing loss, bilater al
YULY PORTILLO R 07/30 [facility] Outpatient Encounter [id number] 09/14 [facility] Social History Combined list of available smoking, tobacco, and other social history from Department of Defense and Veterans Affairs facilities. Social History Type Response Date Comment Sourc e Tobacco smoking status NHIS VA-TOBACCO USE > 15 LESS THAN 30 YEARS 09/03/2022 [facility] CB History of tobacco use VA-TOBACCO USE ADVICE 09/03/2022 [facility]
--- OUTSIDE RECORDS SUMMARY | 2024-05-16 17:13 | XMS_ITS | Encounter Summary ---
Author Organization [facility] Address [address] [place] [address] Care Team Providers Care Soldering Machine Feeder Name Role Phone Urbano Denis DO Primary Care Provider +1- [phone] Encounter Details Date Type Department Care Team (Late st Contact Info) Description 07/15/2023 Lab Requisition [facility] Pathology & Laboratory Medicine - [facility] [address] [place] [address] Outr Resulting Lab, Provider Social History Tobacco [...] 2.8 - 5.3 pg/mL 07/15/2023 22:40 EST [facility] Blood VENOUS BLOOD / Unknown 07/15/2023 13:08 EST 07/15/2023 22:09 EST us Provider Outr Resulting Lab CHEMISTRY & BLOOD GA S ORDERABLES Final Result Performing Organization Address City/State/[facility] Co de Phone Number [facility] [address] [place] [address] documented in this encounter Visit Diagnoses Not on filedocumented in this encounter Care Teams Soldering Machine Feeder Relationship Specialty Start Date End Date Urbano Denis DO [address] [place] [address] PCP - General 09/27/14 documented as of this encounter
--- OUTSIDE RECORDS SUMMARY | 2024-05-16 17:13 | XMS_ITS | Encounter Summary ---
Author Organization [facility] Address [address] [place] [address] Care Team Providers Care Manometer Technician Name Role Phone Urbano Denis DO Primary Care Provider +1- [phone] Encounter Details Date Type Department Care Team (Late st Contact Info) Description 09/14/2022 Lab Requisition [facility] Pathology & Laboratory Medicine - [facility] [address] [place] [address] Outr Resulting Lab, Provider Social History Tobacco [...] 14.3 See Note ng/mL 09/16/2022 13:37 EDT [facility] Comment: NOTE: Tacrolimus Therapeutic Range: 3-12 ng/mL (The goal level is based on clinical context). Assayed utilizing [employer] Chemiluminescent technology. ??Values obtained using different assay methods cannot be used interchangeably. Blood VENOUS BLOOD / Unknown 09/14/2022 5:40 EDT 09/15/2022 16:46 EDT us Provider Outr Resulting Lab CHEMISTRY & BLOOD GA S ORDERABLES Final Result [facility] [address] [place] [address] documented in this encounter Visit Diagnoses Not on filedocumented in this encounter Care Teams Manometer Technician Relationship Specialty Start Date End Date Urbano Denis DO [address] [place] [address] PCP - General 09/27/14 documented as of this encounter
--- OUTSIDE RECORDS SUMMARY | 2024-05-16 17:13 | XMS_ITS | Encounter Summary ---
Author Organization [facility] Address [address] [place] [address] Care Team Providers Care Gas Station Cashier Name Role Phone Urbano Denis DO Primary Care Provider +1- [phone] Encounter Details Date Type Department Care Team (Late st Contact Info) Description 08/20/2023 Lab Requisition [facility] Pathology & Laboratory Medicine - [facility] [address] [place] [address] Outr Resulting Lab, Provider Social History Tobacco [...] 19 - 88 pg/mL 08/20/2023 22:26 EST [facility] Blood VENOUS BLOOD / Unknown 08/20/2023 14:56 EST 08/20/2023 21:23 EST Provider Outr Resulting Lab CHEMISTRY & BLOOD GA S ORDERABLES Final Result [facility] [address] [place] [address] * TACROLIMUS ([id number]) (08/20/2023 14:56 EST) Tacrolimus 4.4 See Note ng/mL 08/21/2023 11:40 EST [facility] Comment: NOTE: Tacrolimus Therapeutic Range: 3-12 ng/mL (The goal level is based on clinical context). Assayed utilizing [employer] Chemiluminescent technology. ??Values obtained using different assay methods cannot be used interchangeably. Blood VENOUS BLOOD / Unknown 08/20/2023 14:56 EST 08/20/2023 21:23 EST us Provider Outr Resulting Lab CHEMISTRY & BLOOD GA S ORDERABLES Final Result [facility] [address] [place] [address] documented in this encounter Visit Diagnoses Not on filedocumented in this encounter Care Teams Gas Station Cashier Relationship Specialty Start Date End Date Urbano Denis DO [address] [place], [place] [id number] PCP - General 09/27/14 documented as of this encounter
--- OUTSIDE RECORDS SUMMARY | 2024-05-16 17:13 | XMS_ITS | Encounter Summary ---
Author Organization [facility] Address [address] [place] [address] Care Team Providers Care Public Speaking Coach Name Role Phone Urbano Denis DO Primary Care Provider +1- [phone] Encounter Details Date Type Department Care Team (Late st Contact Info) Description 09/10/2021 Lab Requisition [facility] Pathology & Laboratory Medicine - [facility] [address] [place] [address] Outr Resulting Lab, Provider Social History Tobacco [...] 4.7 See Note mg/dL 09/12/2021 8:43 EST [facility] Comment: NOTE: Reference range has not been established for magnesium concentration in random urine specimens. Urine URINE SPECIMEN COLLECTION, CLEAN CATCH / Unknown 09/10/2021 10:55 EST 09/11/2021 16:49 EST us Provider Outr Resulting Lab URINALYSIS ORDERABLE S Final Result [facility] [address] [place] [id number] * PHOSPHORUS, URINE RANDOM (09/10/2021 10:55 EST) Phosphorous, Urine 22.7 See Note mg/dL 09/12/2021 8:45 EST [facility] Comment: NOTE: Reference range has not been established for phosporous concentration in random urine specimens. Urine URINE SPECIMEN COLLECTION, CLEAN CATCH / Unknown 09/10/2021 10:55 EST 09/11/2021 16:49 EST us Provider Outr Resulting Lab URINALYSIS ORDERABLE S Final Result [facility] [address] [place] [address] documented in this encounter Visit Diagnoses Not on filedocumented in this encounter Care Teams Public Speaking Coach Relationship Specialty Start Date End Date Urbano Denis DO [address] [place] [address] PCP - General 09/27/14 documented as of this encounter
--- OUTSIDE RECORDS SUMMARY | 2024-05-16 17:13 | XMS_ITS | Encounter Summary ---
Author Organization [facility] Address [address] [place] [address] Care Team Providers Care Podiatric Medicine Doctor Name Role Phone Urbano Denis DO Primary Care Provider +1- [phone] Encounter Details Date Type Department Care Team (Late st Contact Info) Description 03/24/2024 Lab Requisition [facility] Pathology & Laboratory Medicine - [facility] [address] [place] [address] Outr Resulting Lab, Provider Social History Tobacco [...] 9.0 See Note ng/mL 03/25/2024 14:32 EDT [facility] Comment: NOTE: Tacrolimus Therapeutic Range: 3-12 ng/mL (The goal level is based on clinical context). Assayed utilizing [employer] Chemiluminescent technology. ??Values obtained using different assay methods cannot be used interchangeably. Blood VENOUS BLOOD / Unknown 03/23/2024 12:58 EDT 03/24/2024 18:55 EDT us Provider Outr Resulting Lab CHEMISTRY & BLOOD GA S ORDERABLES Final Result [facility] [address] [place] [address] documented in this encounter Visit Diagnoses Not on filedocumented in this encounter Care Teams Podiatric Medicine Doctor Relationship Specialty Start Date End Date Urbano Denis DO [address] [place] [address] PCP - General 09/27/14 documented as of this encounter
--- OUTSIDE RECORDS SUMMARY | 2024-05-16 17:13 | XMS_ITS | Encounter Summary ---
Author Organization [facility] Address [address] [place] [address] Care Team Providers Care Die Maker Electronic Name Role Phone Urbano Denis DO Primary Care Provider +1- [phone] Encounter Details Date Type Department Care Team (Late st Contact Info) Description 09/12/2022 Lab Requisition [facility] Pathology & Laboratory Medicine - [facility] [address] [place] [address] Outr Resulting Lab, Provider Social History Tobacco [...] 14.5 See Note mg/dL 09/13/2022 8:25 EST [facility] Comment: NOTE: Reference range has not been established for calcium concentration in random urine specimens. Urine URINE / Unknown 09/12/2022 1 3:55 EST 09/12/2022 21:45 EST us Provider Outr Resulting Lab URINALYSIS ORDERABLE S Final Result [facility] [address] [place] [address] * MAGNESIUM,URINE RANDOM (09/12/2022 13:55 EST) Magnesium, Urine 19.9 See Note mg/dL 09/13/2022 8:27 EST [facility] Comment: NOTE: Reference range has not been established for magnesium concentration in random urine specimens. Urine URINE / Unknown 09/12/2022 1 3:55 EST 09/12/2022 21:45 EST us Provider Outr Resulting Lab URINALYSIS ORDERABLE S Final Result Performing Organization Address [facility] Co de Phone Number [facility] [address] [place] [address] * PHOSPHORUS, URINE RANDOM (09/12/2022 13:55 EST) Phosphorous, Urine 21.9 See Note mg/dL 09/13/2022 8:25 EST [facility] Comment: NOTE: Reference range has not been established for phosporous concentration in random urine specimens. Urine URINE / Unknown 09/12/2022 1 3:55 EST 09/12/2022 21:45 EST us Provider Outr Resulting Lab URINALYSIS ORDERABLE S Final Result Performing Organization Address [facility] de Phone Number [facility] [address] [place] [address] documented in this encounter Visit Diagnoses Not on filedocumented in this encounter Care Teams Die Maker Electronic Relationship Specialty Start Date End Date Urbano Denis DO [address] [place] [address] PCP - General 09/27/14 documented as of this encounter
--- OUTSIDE RECORDS SUMMARY | 2024-05-16 17:13 | XMS_ITS | Clinical Summary ---
Author Organization [facility] Address [address] [place] [address] Care Team Providers Care Rn Acls Name Role Phone Urbano Denis DO Primary Care Provider +1- [phone] Allergies No known active allergies Medications magnesium oxide (MAG-OX) 400 mg tablet Take [...] Daily Max: 16 mg 40 Tab 0 5 Active CLOPIDOGREL BISULFATE (PLAVIX ORAL)Indication s:RESTART OK'D BY DR MAR Take by mouth Ac tive calcium carbonate (TUMS) 200 mg calcium (500 mg) tablet,chewable Take 1 Tab by mouth 3 times daily with meals 5 Active doxazosin (CARDURA) 8 mg tablet Take 1 Tab by mouth daily 90 Tab 3 5 Active furosemide (LASIX) 40 mg tablet Take 3 Tabs by mouth 2 times daily 540 Tab 3 5 Active spironolactone (ALDACTONE) 25 mg tablet Take 1 Tab by mouth daily 90 Tab 3 5 Active hydrALAzine (APRESOLINE) 25 mg tablet Take 3 Tabs by mouth 2 times daily 540 Tab 3 5 Active carvedilol (COREG) 12.5 mg tablet Take 1 Tab by mouth 2 times daily with breakfast and dinner 180 Tab 0 5 Active Active Problems Problem Noted Date Diagnosed Date Hepatitis C virus infection 01/04/2015 Hyperpotassemia 01/04/2015 Essential hypertension 11/10/2014 Overview (04/05/2015): ICD10 Update Auto Replacement Retroperitoneal hematoma 10/17/2014 Chronic glomerulonephritis in diseases classifie d elsewhere 10/16/2014 Overview (11/08/2014): 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 ([facility]) Overview (10/05/2014): echo 09/17: ef 40%, concentric LVH Hyperparathyroidism, secondary renal ([facility]) Overview (04/05/2015): ICD10 Update Auto Replacement Type 2 diabetes mellitus wit h renal manifestations ([facility]) Overview (04/05/2015): dx 2011, - retinopathy, - neuropathy ICD10 Update Auto Replacement Chronic kidney disease, stage V ([facility]) Encounters Date Type Department Care Team Description 04/04/[address] [facility] Pathology & Laboratory [address] [address] Lazara Peres, DO Encounter for other general examination 03/24/[address] [facility]ology & Laboratory [address] [address] Outr Resulting Lab, Provider 02/14/[address] [facility]ology & Laboratory [address] [address] Outr Resulting Lab, Provider from Last 3 Months Surgical History Surgery Date Site/Laterality Comments KNEE ARTHROSCOPY Medical History Medical History Date Comments CVA (cerebral infarction) 2013 Cardiomyopathy due to hypertension ([facility]) echo 09/17: ef 40%, concentric LVH Dyslipidemia Secondary hyperparathyroidis m (of renal origin) Obesity (BMI 30-39.9) GERD (gastroesophageal reflux disease) Diabetes mellitus type 2, co ntrolled ([facility]) dx 2011, - retinopathy, - neuropathy ARIELLA (obstructive sleep apnea) Chronic kidney disease, stag e IV (severe) ([facility]) Social History Tobacco Use Types Packs/Day Years [...] 2008 Fall Risk Screening 2013 COVID-19 Vaccine ( season) 2024 Procedures Procedure Name Priority Date/Time Associated Diagnosis Comments SURGICAL PATHOLOGY Today 04/04/2024 13 :55 EDT Encounter for other general examination TACROLIMUS (FK506) Routine 03/23/2024 12 :58 EDT TACROLIMUS (FK506) Routine 02/14/2024 11 :12 EDT from Last 3 Months Results * SURGICAL PATHOLOGY (04/04/2024 13:55 EDT) Note to Patient The following pathology results have been interpreted by your pathologist and may be available to you before your health provider has had the opportunity to review them. Please allow time for your provider to receive these results and explore management options, if applicable. 04/06/2024 11:13 [facility] Final Diagnosis A. SKIN OF SUPRA PUBIC, EXCISION: - Squamous cell carcinoma in-situ, completely excised. 04/06/2024 11:13 [facility] Attestation By the signature below, the attending physician certifies that they have 1) personally conducted a gross and/or microscopic examination of the described specimen(s), and/or personally interpreted the results of laboratory testing of the described specimen(s), and 2) personally rendered or confirmed the above diagnosis. 04/06/2024 11:13 [facility] at 1113 Clinical History Skin lesion, suture at 12 o'clock 04/06/2024 11:13 [facility] Gross Description A. Received in [...] A2. MCKINLEY BOWER(ASCP) 04/05/2024 8:45 04/06/2024 11:13 [facility] Performing Lab [facility] 04/06/2024 11:13 [facility] Scanned Images 04/06/2024 11:13 [facility] Tissue SPECIMEN FROM SKIN / Unknown 04/04/2024 13:55 EDT 04/04/2024 22:23 EDT us Lazara Peres DO PATHOLOGY ORDERABLES Final Re sult [facility] [address] [place] [address] * TACROLIMUS (FK506) (03/23/2024 12:58 EDT) Only the most recent of2 resultswithin the time period is included. Tacrolimus 9.0 See Note ng/mL 03/25/2024 14:32 EDT [facility] Comment: NOTE: Tacrolimus Therapeutic Range: 3-12 ng/mL (The goal level is based on clinical context). Assayed utilizing [employer] Chemiluminescent technology. ??Values obtained using different assay methods cannot be used interchangeably. Blood VENOUS BLOOD / Unknown 03/23/2024 12:58 EDT 03/24/2024 18:55 EDT us Provider Outr Resulting Lab CHEMISTRY & BLOOD GA S ORDERABLES Final Result Performing Organization Address [facility]/ZIP Co de Phone Number [facility] [address] [place] [address] from Last 3 Months Insurance [facility] MEDICARE Advance Directives For more information, please contact: [phone] * Full Code (Latest Code Status on [...] TIME OF CONSENT IN PPR Care Teams Rn Acls Relationship Specialty Start Date End Date Urbano Denis DO [address] [place] [address] [facility] - General 09/27/14
--- OUTSIDE RECORDS SUMMARY | 2024-05-16 17:13 | XMS_ITS | Encounter Summary ---
Author Organization [facility] Address [address] [place] [address] Care Team Providers Care Tree Trimmer Helper Name Role Phone Urbano Denis DO Primary Care Provider +1- [phone] Encounter Details Date Type Department Care Team (Late st Contact Info) Description 03/26/2023 Lab Requisition [facility] Pathology & Laboratory Medicine - [facility] [address] [place] [address] Outr Resulting Lab, Provider Social History Tobacco [...] 19 - 88 pg/mL 03/26/2023 23:02 EDT [facility] Blood VENOUS BLOOD / Unknown 03/26/2023 11:30 EDT 03/26/2023 21:29 EDT us Provider Outr Resulting Lab CHEMISTRY & BLOOD GA S ORDERABLES Final Result [facility] [address] [place] [address] * TACROLIMUS (FK506) (03/26/2023 11:30 EDT) Tacrolimus 7.6 See Note ng/mL 03/27/2023 13:40 EDT [facility] Comment: NOTE: Tacrolimus Therapeutic Range: 3-12 ng/mL (The goal level is based on clinical context). Assayed utilizing [employer] Chemiluminescent technology. ??Values obtained using different assay methods cannot be used interchangeably. Blood VENOUS BLOOD / Unknown 03/26/2023 11:30 EDT 03/26/2023 21:38 EDT us Provider Outr Resulting Lab CHEMISTRY & BLOOD GA S ORDERABLES Final Result [facility] [address] [place] [address] documented in this encounter Visit Diagnoses Not on filedocumented in this encounter Care Teams Tree Trimmer Helper Relationship Specialty Start Date End Date Urbano Denis DO [address] [place] [address] PCP - General 09/27/14 documented as of this encounter
--- OUTSIDE RECORDS SUMMARY | 2024-05-16 17:13 | XMS_ITS | Encounter Summary ---
Author Organization [facility] Address [address] [place] [address] Care Team Providers Care Cloth Inspector Name Role Phone Urbano Denis DO Primary Care Provider +1- [phone] Encounter Details Date Type Department Care Team (Late st Contact Info) Description 11/12/2023 Lab Requisition [facility] Pathology & Laboratory Medicine - [facility] [address] [place] [address] Outr Resulting Lab, Provider Social History Tobacco [...] 6.2 See Note ng/mL 11/13/2023 11:28 EDT [facility] Comment: NOTE: Tacrolimus Therapeutic Range: 3-12 ng/mL (The goal level is based on clinical context). Assayed utilizing [employer] Chemiluminescent technology. ??Values obtained using different assay methods cannot be used interchangeably. Blood VENOUS BLOOD / Unknown 11/12/2023 11:16 EDT 11/12/2023 18:30 EDT us Provider Outr Resulting Lab CHEMISTRY & BLOOD GA S ORDERABLES Final Result [facility] [address] [place] [address] documented in this encounter Visit Diagnoses Not on filedocumented in this encounter Care Teams Cloth Inspector Relationship Specialty Start Date End Date Urbano Denis DO [address] [place] [address] PCP - General 09/27/14 documented as of this encounter
--- OUTSIDE RECORDS SUMMARY | 2024-05-16 17:13 | XMS_ITS | Encounter Summary ---
Author Organization [facility] Address [address] [place] [address] Care Team Providers Care Subsurface Augmentee Elint Operator Name Role Phone Urbano Denis DO Primary Care Provider +1- [phone] Encounter Details Date Type Department Care Team (Late st Contact Info) Description 02/14/2024 Lab Requisition [facility] Pathology & Laboratory Medicine - [facility] [address] [place] [address] Outr Resulting Lab, Provider Social History Tobacco [...] 9.4 See Note ng/mL 02/16/2024 11:38 EDT [facility] Comment: NOTE: Tacrolimus Therapeutic Range: 3-12 ng/mL (The goal level is based on clinical context). Assayed utilizing [employer] Chemiluminescent technology. ??Values obtained using different assay methods cannot be used interchangeably. Blood VENOUS BLOOD / Unknown 02/14/2024 11:12 EDT 02/15/2024 17:46 EDT us Provider Outr Resulting Lab CHEMISTRY & BLOOD GA S ORDERABLES Final Result [facility] [address] [place] [address] documented in this encounter Visit Diagnoses Not on filedocumented in this encounter Care Teams Subsurface Augmentee Elint Operator Relationship Specialty Start Date End Date Urbano Denis DO [address] [place] [address] PCP - General 09/27/14 documented as of this encounter
--- OUTSIDE RECORDS SUMMARY | 2024-05-16 17:13 | XMS_ITS | Referral Summary ---
Author Organization [facility] Address [address] [place] [address] Care Team Providers Care Etl Bi Developer Name Role Phone Urbano Denis DO Primary Care Provider +1- [phone] Encounters Date Type Department Care Team Description 04/04/2024 Lab Requisition [facility] Pathology & Laboratory [address] [address] Lazara Peres DO Encounter for other general examination 03/24/2024 Lab Requisition [facility] Pathology & Laboratory [address] [address] Outr Resulting Lab, Provider 02/14/2024 Lab Requisition [facility]ology Laboratory [address] [address] Outr Resulting Lab, Provider from Last 3 Months Allergies No known active allergies Medications magnesium [...] biopsy 2014 Cardiomyopathy due to hypertension ([facility]) Overview (10/05/2014): echo 09/17: ef 40%, concentric LVH Hyperparathyroidism, secondary renal ([facility]) Overview (04/05/2015): ICD10 Update Auto Replacement Type 2 diabetes mellitus wit h renal manifestations ([facility]) Overview (04/05/2015): dx 2011, - retinopathy, - neuropathy ICD10 Update Auto Replacement Chronic kidney disease, stage V ([facility]) Social History Tobacco Use Types Packs/Day Years [...] 1201 EDT Temperature 36 ??C (96.8 ??F) 10/17/2014527 EDT Respiratory Rate 16 10/17/2014527 EDT Oxygen Saturation 92% 10/17/2014527 EDT Inhaled Oxygen Concentration - - Weight 103.1 kg (227 lb 4.7 oz) 01/04/2015 120 EDT Height 180.3 cm (5' 11) 10/16/20142051 EDT Body Mass Index 31.7 10/16/20142051 EDT Functional Status * Are you deaf or [...] Author No 10/16/2014 20:52 Bev Min RN Mental Status * Because of a physical, mental, or emotional condition, do you have serious difficulty concentrating, remembering, or making decisions? (5 years old or older) Answer Entry Date Author No 10/16/2014 20:52 Bev Min RN Plan of Treatment Not on file Procedures [...] A2. MCKINLEY BOWER(ASCP) 04/05/2024 8:45 04/06/2024 11:13 [facility] Performing Lab [facility] 04/06/2024 11:13 EDT [facility] Scanned Images 04/06/2024 11:13 EDT [facility] Tissue SPECIMEN FROM SKIN / Unknown 04/04/2024 13:55 EDT 04/04/2024 22:23 EDT us Lazara Peres DO PATHOLOGY ORDERABLES Final Re sult Performing Organization Address City/[facility]/ZIP Co de Phone Number [facility] [address] [place] [address] * TACROLIMUS (FK506) (03/23/2024 12:58 EDT) Only the most recent of2 resultswithin the time period is included. Tacrolimus 9.0 See Note ng/mL 03/25/2024 14:32 EDT [facility] Comment: NOTE: Tacrolimus Therapeutic Range: 3-12 ng/mL (The goal level is based on clinical context). Assayed utilizing [employer] Chemiluminescent technology. ??Values obtained using different assay methods cannot be used interchangeably. Blood VENOUS BLOOD / Unknown 03/23/2024 12:58 EDT 03/24/2024 18:55 EDT us Provider Outr Resulting Lab CHEMISTRY & BLOOD GA S ORDERABLES Final Result Performing Organization Address [facility] Co de Phone Number [facility] [address] [place] [address] from Last [address] [place] [address] [place] [address] MEDICARE Advance Directives For more information, please contact: [phone] * Full Code (Latest Code Status on [...] TIME OF CONSENT IN PPR Care Teams Etl Bi Developer Relationship Specialty Start Date End Date Urbano Denis DO [address] [place] [address] PCP - General 09/27/14
--- OUTSIDE RECORDS SUMMARY | 2024-05-16 17:13 | XMS_ITS | Encounter Summary ---
Author Organization [facility] Address [address] [place] [address] Care Team Providers Care Pollution Control Chemist Name Role Phone Urbano Denis DO Primary Care Provider +1- [phone] Encounter Details Date Type Department Care Team (Late st Contact Info) Description 03/26/2023 Lab Requisition [facility] Pathology & Laboratory Medicine - [facility] [address] [place] [address] Outr Resulting Lab, Provider Social History Tobacco [...] 15.5 See Note mg/dL 03/27/2023 9:44 EDT [facility] Comment: NOTE: Reference range has not been established for calcium concentration in random urine specimens. Urine URINE / Unknown 03/26/2023 1 1:35 EDT 03/26/2023 21:27 EDT us Provider Outr Resulting Lab URINALYSIS ORDERABLE S Final Result [facility] [address] [place] [address] * MAGNESIUM,URINE RANDOM (03/26/2023 11:35 EDT) Magnesium, Urine 5.8 See Note mg/dL 03/27/2023 9:37 EDT [facility] Comment: NOTE: Reference range has not been established for magnesium concentration in random urine specimens. Urine URINE / Unknown 03/26/2023 1 1:35 EDT 03/26/2023 21:27 EDT us Provider Outr Resulting Lab URINALYSIS ORDERABLE S Final Result Performing Organization Address [facility] Co de Phone Number [facility] [address] [place] [address] * PHOSPHORUS, URINE RANDOM (03/26/2023 11:35 EDT) Phosphorous, Urine 29.4 See Note mg/dL 03/27/2023 9:36 EDT [facility] Comment: NOTE: Reference range has not been established for phosporous concentration in random urine specimens. Urine URINE / Unknown 03/26/2023 1 1:35 EDT 03/26/2023 21:27 EDT us Provider Outr Resulting Lab URINALYSIS ORDERABLE S Final Result Performing Organization Address [facility] de Phone Number [facility] [address] [place] [address] documented in this encounter Visit Diagnoses Not on filedocumented in this encounter Care Teams Pollution Control Chemist Relationship Specialty Start Date End Date Urbano Denis DO [address] [place] [address] PCP - General 09/27/14 documented as of this encounter
--- OUTSIDE RECORDS SUMMARY | 2024-05-16 17:13 | XMS_ITS | Encounter Summary ---
Author Organization [facility] Address [address] [place] [address] Care Team Providers Care Sales Broker Name Role Phone Urbano Denis DO Primary Care Provider +1- [phone] Encounter Details Date Type Department Care Team (Late st Contact Info) Description 06/19/2023 Lab Requisition [facility] Pathology & Laboratory Medicine - [facility] [address] [place] [address] Outr Resulting Lab, Provider Social History Tobacco [...] 9.5 See Note ng/mL 06/20/2023 12:46 EST [facility] Comment: NOTE: Tacrolimus Therapeutic Range: 3-12 ng/mL (The goal level is based on clinical context). Assayed utilizing [employer] Chemiluminescent technology. ??Values obtained using different assay methods cannot be used interchangeably. Blood VENOUS BLOOD / Unknown 06/19/2023 11:55 EST 06/19/2023 17:30 EST us Provider Outr Resulting Lab CHEMISTRY & BLOOD GA S ORDERABLES Final Result [facility] [address] [place] [address] documented in this encounter Visit Diagnoses Not on filedocumented in this encounter Care Teams Sales Broker Relationship Specialty Start Date End Date Urbano Denis DO [address] [place] [address] PCP - General 09/27/14 documented as of this encounter
--- OUTSIDE RECORDS SUMMARY | 2024-05-16 17:14 | XMS_ITS | Encounter Summary ---
Author Organization [facility] Address [address] [place] [address] Care Team Providers Care Oil Well Directional Surveyor Name Role Phone Adeel, Urbano Checo Primary Care Provider +1- [phone] Encounter Details Date Type Department Care Team (Late st Contact Info) Description 12/01/2014 Orders Only [facility] Nephrology - [address] [address] Liu Adams MD Social History Tobacco Use [...] Bev Merino RN documented in this encounter Ordered Prescriptions Prescription Sig Dispense Quantity Refills Last Filled Start Date End Date carvedilol (COREG) 12.5 mg tablet Take 1 Tab by mouth 2 times daily with breakfast and dinner 60 Tab 3 12/01/2014 5 documented in this encounter Progress Notes * [...] documented as of this encounter Care Teams Oil Well Directional Surveyor Relationship Specialty Start Date End Date Urbano Denis DO [address] [place] [address] PCP - General 09/27/14 documented as of this encounter
--- OUTSIDE RECORDS SUMMARY | 2024-05-16 17:14 | XMS_ITS | Encounter Summary ---
Author Organization [facility] Address [address] [place] [address] Care Team Providers Care Egg Grader Name Role Phone Urbano Denis DO Primary Care Provider +1- [phone] Encounter Details Date Type Department Care Team (Late st Contact Info) Description 01/10/2020 Lab Requisition [facility] Pathology & Laboratory Medicine - [address] [address] Outr Resulting Lab, Provider Social History Tobacco [...] 7.0 See Note ng/mL 01/11/2020 14:02 EDT [facility] Comment: NOTE: Therapeutic range is dependent on the clinical situation. Assayed utilizing [employer] Chemiluminescent technology. ??Values obtained using different assay methods cannot be used interchangeably. Blood VENOUS BLOOD / Unknown 01/10/2020 8:45 EDT 01/10/2020 17:09 EDT us Provider Outr Resulting Lab CHEMISTRY & BLOOD GA S ORDERABLES Final Result [facility] [address] [place] [address] documented in this encounter Visit Diagnoses Not on filedocumented in this encounter Care Teams Egg Grader Relationship Specialty Start Date End Date Urbano Denis DO [address] [place] [address] PCP - General 09/27/14 documented as of this encounter
--- OUTSIDE RECORDS SUMMARY | 2024-05-16 17:14 | XMS_ITS | Encounter Summary ---
Author Organization [facility] Address [address] [place] [address] Care Team Providers Care Mechanical Reliability Engineer Name Role Phone Adeel Urbano Checo Primary Care Provider +1- [phone] Encounter Details Date Type Department Care Team (Late st Contact Info) Description 10/11/2014 Abstract [facility] Nephrology - [address] [place] [address] [place], [place] [address] Que Lewis MD [address] [place] [id number] Social History Tobacco Use Types Packs/Day [...] * PTH INTACT (10/09/2014) PTH, External [address] [facility] Blood specimen (specimen) 10/09/2014 us Que Lewis MD CHEMISTRY & BLOOD GAS ROCHELLE JENNINGS Final Result [facility] * HEMAGRAM (10/09/2014) HCT, External 40.6 [facility] MCH, External [facility] MCV, External [facility] MCHC, External [facility] Hemoglobin, External 13.4 [facility] WBC, External 7.86 [facility] RBC, External 4.60 [facility] PLT, External 371 [facility] RDW-CV, External [facility] Blood specimen (specimen) 10/09/2014 us Que Lewis MD HEMATOLOGY & PF4 ORDERABLE S Final Result Performing Organization Address City/[facility]/ZIP Co de Phone Number [facility] * NEPHROLOGY PROFILE (INCLUDES BUN, CREATININE, CALCULATED GFR, ELECTROLYTES, CALCIUM, PHOSPHORUS, ALBUMIN) (10/09/2014) Phosphorus, External 4.3 [facility] Albumin, External 2.7 [facility] BUN, External 57 [facility] Chloride, External 105 [facility] Creatinine, External 3.7 [facility] Potassium, External 4.4 [facility] GFR, Calculated, External 16.52 [facility] Calculated Calcium, External [facility] Calcium, External 8.9 [facility] Sodium, External 142 [facility] CO2, External 28.6 [facility] Blood specimen (specimen) 10/09/2014 us Que Lewis MD PACKAGES & DNA PROBE ORDER IGNACIO Final Result [facility] documented in this encounter Visit Diagnoses Not on filedocumented in this encounter Care Teams Mechanical Reliability Engineer Relationship Specialty Start Date End Date Urbano Denis DO [address] [place] [address] PCP - General 09/27/14 documented as of this encounter
--- OUTSIDE RECORDS SUMMARY | 2024-05-16 17:14 | XMS_ITS | Encounter Summary ---
Author Organization [facility] Address [address] [place] [address] Care Team Providers Care Rubber Vulcanizing Machine Operator Name Role Phone Urbano Denis DO Primary Care Provider +1- [phone] Encounter Details Date Type Department Care Team (Late st Contact Info) Description 04/05/2021 Lab Requisition [facility] Pathology & Laboratory Medicine - [facility] [address] [place] [address] Outr Resulting Lab, Provider Social History Tobacco [...] Date of Assessment Author No 10/16/2014 20:52 Bve Min RN * Do you have serious [...] 5.9 See Note ng/mL 04/06/2021 13:51 EDT [facility] Comment: NOTE: Therapeutic range is dependent on the clinical situation. Assayed utilizing [employer] Chemiluminescent technology. ??Values obtained using different assay methods cannot be used interchangeably. Blood VENOUS BLOOD / Unknown 04/05/2021 7:05 EDT 04/05/2021 20:50 EDT us Provider Outr Resulting Lab CHEMISTRY & BLOOD GA S ORDERABLES Final Result [facility] [address] [place] [address] documented in this encounter Visit Diagnoses Not on filedocumented in this encounter Care Teams Rubber Vulcanizing Machine Operator Relationship Specialty Start Date End Date Urbano Denis DO [address] [place] [address] PCP - General 09/27/14 documented as of this encounter
--- OUTSIDE RECORDS SUMMARY | 2024-05-16 17:14 | XMS_ITS | Encounter Summary ---
Author Organization [facility] Address [address] [place] [address] Care Team Providers Care Lumber Chain Offbearer Name Role Phone Urbano Denis DO Primary Care Provider +1- [phone] Encounter Details Date Type Department Care Team (Late st Contact Info) Description 10/06/2014 Abstract [facility] Nephrology - [address] [place], [place] [id number] Que Lewis MD [address] [place] [phone] Social History Tobacco Use Types Packs/Day [...] METABOLIC PANEL (10/02/2014) GFR, Calculated, External 18.85 [facility] Glucose, Serum, External 118 [facility] Calculated Calcium, External [facility] BUN, External 39 [facility] Calcium, External 8.7 [facility] Chloride, External 105 [facility] CO2, External 27.9 [facility] Creatinine, External 3.3 [facility] Fasting?, External [facility] Potassium, External 3.9 [facility] Sodium, External 141 [facility] Blood specimen (specimen) 10/02/2014 us Urbano Denis DO CHEMISTRY & BLOOD GAS ROCHELLE JENNINGS Final Result [facility] * BASIC METABOLIC PANEL (09/22/2014) GFR, Calculated, External 19.53 [facility] Glucose, Serum, External 102 [facility] Calculated Calcium, External [facility] BUN, External 43 [facility] Calcium, External 8.8 [facility] Chloride, External 108 [facility] CO2, External 28.9 [facility] Creatinine, External 3.2 [facility] Fasting?, External [facility] Potassium, External 3.6 [facility] Sodium, External 146 [facility] Blood specimen (specimen) 09/22/2014 us Tal Diallo MD CHEMISTRY & BLOOD GAS ORDERABL ES Final Result [facility] * HEMAGRAM (09/21/2014) HCT, External 36.5 [facility] MCH, External [facility] MCV, External [facility] MCHC, External [facility] Hemoglobin, External 11.9 [facility] WBC, External 6.09 [facility] RBC, External 4.10 [facility] PLT, External 253 [facility] RDW-CV, External [facility] Blood specimen (specimen) 09/21/2014 us Tal Diallo MD HEMATOLOGY & PF4 ORDERABLES Fi nal Result Performing Organization Address City/[facility]/ZIP Co de Phone Number [facility] * C-REACTIVE PROTEIN HIGH SENSITIVITY (09/21/2014) Pathologist [facility] High Sensitivity CRP, External 0.39 [facility] Blood specimen (specimen) 09/21/2014 us Tal Diallo MD CHEMISTRY & BLOOD GAS ORDERABL ES Final Result Performing Organization Address City/[facility]/ZIP Co de Phone Number [facility] * MAGNESIUM (09/21/2014) Pathologist [facility] Magnesium, External 1.9 [facility] Blood specimen (specimen) 09/21/2014 us Tal Diallo MD CHEMISTRY & BLOOD GAS ORDERABL ES Final Result Performing Organization Address [facility]/ZIP Co de Phone Number [facility] * BASIC METABOLIC PANEL (09/21/2014) GFR, Calculated, External 19.53 [facility] Glucose, Serum, External 96 [facility] Calculated Calcium, External [facility] BUN, External 39 [facility] Calcium, External 8.4 [facility] Chloride, External 108 [facility] CO2, External 29.1 [facility] Creatinine, External 3.2 [facility] Fasting?, External [facility] Potassium, External 3.3 [facility] Sodium, External 145 [facility] Blood specimen (specimen) 09/21/2014 us Tal Diallo MD CHEMISTRY & BLOOD GAS ORDERABL ES Final Result [facility] documented in this encounter Visit Diagnoses Not on filedocumented in this encounter Care Teams Lumber Chain Offbearer Relationship Specialty Start Date End Date Urbano Denis DO [address] [place] [id number] PCP - General 09/27/14 documented as of this encounter
--- OUTSIDE RECORDS SUMMARY | 2024-05-16 17:14 | XMS_ITS | Encounter Summary ---
Author Organization [facility] Address [address] [place] [address] Care Team Providers Care Packaging Sales Consultant Name Role Phone Urbano Denis DO Primary Care Provider +1- [phone] Encounter Details Date Type Department Care Team (Late st Contact Info) Description 03/21/2020 Lab Requisition [facility] Pathology & Laboratory Medicine - [address] [address] Outr Resulting Lab, Provider Social History Tobacco [...] 11.6 See Note ng/mL 03/22/2020 13:28 EDT [facility] Comment: NOTE: Therapeutic range is dependent on the clinical situation. Assayed utilizing [employer] Chemiluminescent technology. ??Values obtained using different assay methods cannot be used interchangeably. Blood VENOUS BLOOD / Unknown 03/21/2020 14:20 EDT 03/21/2020 21:23 EDT us Provider Outr Resulting Lab CHEMISTRY & BLOOD GA S ORDERABLES Final Result [facility] [address] [place] [address] documented in this encounter Visit Diagnoses Not on filedocumented in this encounter Care Teams Packaging Sales Consultant Relationship Specialty Start Date End Date Urbano Denis DO [address] [place] [address] PCP - General 09/27/14 documented as of this encounter
--- OUTSIDE RECORDS SUMMARY | 2024-05-16 17:14 | XMS_ITS | Encounter Summary ---
Author Organization [facility] Address [address] [place] [address] Care Team Providers Care Rag Boiler Name Role Phone Urbano Denis DO Primary Care Provider +1- [phone] Encounter Details Date Type Department Care Team (Late st Contact Info) Description 06/21/2020 Lab Requisition [facility] Pathology & Laboratory Medicine - [address] [address] Outr Resulting Lab, Provider Social History Tobacco [...] 11.6 See Note ng/mL 06/22/2020 13:51 EST [facility] Comment: NOTE: Therapeutic range is dependent on the clinical situation. Assayed utilizing [employer] Chemiluminescent technology. ??Values obtained using different assay methods cannot be used interchangeably. Blood VENOUS BLOOD / Unknown 06/21/2020 11:25 EST 06/21/2020 17:09 EST us Provider Outr Resulting Lab CHEMISTRY & BLOOD GA S ORDERABLES Final Result Performing Organization Address City/State/[facility] Co de Phone Number [facility] [address] [place] [address] documented in this encounter Visit Diagnoses Not on filedocumented in this encounter Care Teams Rag Boiler Relationship Specialty Start Date End Date Urbano Denis DO [address] [place] [address] PCP - General 09/27/14 documented as of this encounter
--- OUTSIDE RECORDS SUMMARY | 2024-05-16 17:14 | XMS_ITS | Encounter Summary ---
Author Organization [facility] Address [address] [place] [address] Care Team Providers Care Engineering Drawings Checker Name Role Phone Urbano Denis DO Primary Care Provider +1- [phone] Reason for Visit * Reason Onset Date Comments Appointment Related 02/22/2015 Encounter Details Date Type Department Care Team (Late st Contact Info) Description 02/22/2015 Telephone [facility] Nephrology - [address] [phone] Arianna Richardson MD [address] [place] [address], [address] [place] [address] Appointment Related Social History Tobacco [...] Bev Merino RN documented in this encounter Miscellaneous Notes * Telephone Encounter - Brunilda Pinon - 02/22/2015 1016 EDT Pt NOS appt with Dr. Richardson in [facility] on 02/21/15. LMOM for pt to call back to rescheduled. Letter sent 02/22/15 documented in this encounter Plan of Treatment Not on file documented as of this encounter Visit Diagnoses Not on filedocumented in this encounter Care Teams Engineering Drawings Checker Relationship Specialty Start Date End Date Urbano Denis DO [address] [place] [address] PCP - General 09/27/14 documented as of this encounter
--- OUTSIDE RECORDS SUMMARY | 2024-05-16 17:14 | XMS_ITS | Encounter Summary ---
Author Organization [facility] Address [address] [place] [address] Care Team Providers Care Graining Machine Operator Name Role Phone Urbano Denis DO Primary Care Provider +1- [phone] Reason for Visit * Reason Onset Date Comments Medications Refill 12/05/2014 Encounter Details Date Type Department Care Team (Late st Contact Info) Description 12/05/2014 Refill [facility] Transplant - [address] [place] [address] [place], [place] [id number] Que Lewis MD [address] [phone] Medications Refill Social History Tobacco [...] of Assessment Author No 10/16/2014 20:52 EDT Angelique, Bev, RN * Do you have difficulty dressing [...] Bev Min RN documented in this encounter Ordered Prescriptions [...] documented as of this encounter Care Teams Graining Machine Operator Relationship Specialty Start Date End Date Urbano Denis DO [address] [place] [address] PCP - General 09/27/14 documented as of this encounter
--- OUTSIDE RECORDS SUMMARY | 2024-05-16 17:14 | XMS_ITS | Encounter Summary ---
Author Organization [facility] Address [address] [place] [address] Care Team Providers Care Production Support Analyst Name Role Phone Urbano Denis DO Primary Care Provider +1- [phone] Reason for Visit * Reason Comments Chronic Kidney Disease Encounter Details Date Type Department Care Team (Late st Contact Info) Description 11/23/2014 9:00 EDT Office Visit [facility] Nephrology [address] [phone] Que Lewis MD [address] [place] [phone] Chronic kidney disease, stage IV (severe) ([facility]) (Primary Dx); Unspecified essential hypertension Social History [...] 144/78 11/23/2014 0906 EDT Pulse 55 11/23/2014 09 EDT Temperature - - Respiratory Rate - - Oxygen Saturation - - Inhaled Oxygen Concentration - - Weight 102.6 kg (226 lb 3.1 oz) 11/23/2014 09 EDT Height - - Body Mass Index 31.55 10/16/20142051 EDT documented in this encounter Functional Status * Are you [...] Bev Min RN documented in this encounter Patient Instructions * Patient Instructions* Que Lewis MD - 11/23/2014 9:40 EDT 1. Increase hydralazine to 75mg twice each day 2. Home dialysis evaluation/consultation documented in this encounter Ordered Prescriptions Prescription Sig Dispense Quantity Refills Last Filled Start Date End Date hydrALAzine (APRESOLINE) 25 mg tablet Take 3 Tabs by mouth 2 times daily 540 Tab 3 11/23/2014 spironolactone (ALDACTONE) 25 mg tablet Take 1 Tab by mouth daily 90 Tab 3 11/23/2014 documented in this encounter Progress Notes * Que Lewis MD - 11/23/2014 0919 EDT [facility] Note DATE OF SERVICE: 11/23/2014 NAME: Cody DORANTES: 1950 Patient Active Problem List Diagnosis ??? [...] transplant evaluation at [facility] in mid-December. He notes stable edema. Home [...] Diagnosis Chronic kidney disease, stage IV (severe) ([facility])- Primary Chronic kidney disease, Stage IV (severe) Unspecified essential hypertension documented in this encounter Discontinued Medications Medication Sig Discontinue Reason Start Date End Da te spironolactone (ALDACTONE) 25 mg tablet Take 1 Tab by mouth daily Reorder 10/06/2014 11/23/2014 hydrALAzine (APRESOLINE) 25 mg tablet Take 50 mg by mouth 2 times daily Reorder 11/23/2014 documented as of this encounter Care Teams Production Support Analyst Relationship Specialty Start Date End Date Urbano Denis DO [address] [place] [address] PCP - General 09/27/14 documented as of this encounter
--- OUTSIDE RECORDS SUMMARY | 2024-05-16 17:14 | XMS_ITS | Encounter Summary ---
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 Chronic kidney disease, stage IV (severe) ([facility]) Edinson Leary MD Phone: tel: fax: Devon Zaman MD Phone: tel: fax: Referral ID Status Reason Start Date Expiration Date V isits Requested Visits Authorized [id number] Closed Specialty Services Required 10/17/2014 1 1 Question Answer Reason for Request: post-procedure follow up Encounter Details Date Type Department Care Team (Latest Contact Info) Description 10/16/2014 8:34 EDT - 10/17/2014 15:13 EDT Hospital Encounter [facility] General Surgery Unit [address], [place] [id number] Devon Zaman MD 1 [facility], Level [address] [place] [address] 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 Appointments Scheduled with [facility] in the Next 3 Months: These [facility] appointments have already been scheduled November 08, 2014 14:00 Established Patient Visit with Que Lewis [facility] Nephrology [facility] (--) [address] [place] [id number] Follow-Up Appointments and Procedures Recommended to Patient: [...] Edinson Leary MD PGY-1 10/17/2014 14:32 Pager #[phone] I interviewed and examined the patient and confirmed the findings of Dr. Leary. The case was discussed with Dr. Adams and I agree with the assessment and plan. Devon Zaman MD 10/17/2014 20:05 documented in this encounter Discharge Instructions * Discharge Instructions* Karly Pettit CNM - 10/16/2014 14:23 EDT [facility] Renal Biopsy Discharge Instructions Date: 10/16/14 Physician: Junie Physician Telephone number: [phone] Diet: You may resume your normal diet [...] clinic immediately. * Discharge Instr - Lab* [place], Edinson - 10/17/2014 13:53 EDT Please call the nephrology office with the results of your blood work. A copy will be sent to them.They will help you restart your plavix. documented in this encounter Medications at Time of Discharge amLODIPine (NORVASC) 10 mg tablet Take 10 [...] capsule Take 0.25 mcg by mouth daily 5 carvedilol (COREG) 12.5 mg tablet Take 12.5 mg by mouth 2 times daily with breakfast and dinner 5 cloNIDine HCl (CATAPRES) 0.1 mg tablet Take 1 Tab by mouth 2 times daily for 30 days 60 Tab 0 10/17/2014 5 doxazosin (CARDURA) 2 mg tablet Take 6 mg by mouth daily 5 furosemide (LASIX) 20 mg tablet Take 80 mg by mouth 2 times daily 5 hydrALAzine (APRESOLINE) 25 mg tablet Take 50 mg by mouth 2 times daily 5 losartan (COZAAR) 100 mg tablet Take 100 mg by mouth daily 5 spironolactone (ALDACTONE) 25 mg tablet Take 1 Tab by mouth daily 30 Tab 5 10/06/2014 5 documented as of this encounter Ordered Prescriptions Prescription Sig Dispense Quantity Refills Last Filled Start Date End Date HYDROmorphone (DILAUDID) 2 mg tablet Take 1-2 [...] services: DME Provider: [place] [facility] [place] L[place]ING ARRANGEMENTS AND ACCESSIBILITY ISSUES: House Are there any home access issues? No What in home social supports are available to the patient? spouse ADVANCED DIRECTIVES, POA &/or COLST IN PLACE: No CULTURAL, CONGREGATIONAL and/or LANGUAGE factors affecting health care/discharge planning:: [...] No Initial plan discussed with: spouse Brandee Cardoza 10/17/2014 11:30 * Liu Adams MD - 10/17/2014 0955 EDT Nephrology Progress Note Admit Date: 10/16/2014 Hospital Day: LOS: 1 day Date of Service: 10/17/2014 Reason for follow up: Post renal biopsy bleeding. Brief history: 64 year old male got admitted yesterday after a Rt caddo kidney biopsy due to a retroperitoneal bleed. [...] his bony lesions seen in CT incidentally. Liu Adams MD 10/17/2014 9:55 * Yanna Morse MD - 10/16/2014 0345 EDT I was notified about the Ct scan finding by Dr. Adams. I discussed the findings with logistics vice president:Moderate size hematoma. On exam: pt [...] Dr. Leary D/W Lazaro D/W Dr. Zaman Cosigned by Aubrey Willis MD at 10/17/2014 11:28 EDT * Tamela Pa RN - 10/16/2014 1551 EDT 1500 taking over care of pt at this time 1530 pt c/o intense pain to groin region. Unable to even sit up on stretcher without asst. drsg to right back reveals scant amt of blood show. Pt voided small amt approximately 30 cc at this time of clear yellow urine no blood. md notified and stated that [facility] 1600 md here [...] [address] scan 1755 bisi here to see pt at this time. Decision to admit pt 1820 pain meds given for pain to groin 12/13. 1840 pt sleeping. No distress 1919 report given to [place] 3 1944 pt transferred via stretcher to [place] [address] at this time. * Karly Pettit CNM - 10/16/2014 1153 EDT 1154-pt admitted to [facility] bed # 28 after kidney biopsy-dressing with dime size spot on right side-pt without c/o of pain-vs obtained 1230-no change in discharge from previous 1321-pt eating lunch 1455-labs drawn as ordered-iv dc'd * Karly Pettit CNM - 10/16/2014 0844 EDT 0845-pt admitted to [facility] bed # 28 for kidney biopsy-diagnosis code 585.4 and 581.9-identity and allergies verified-bp elevated-MD notified plavix stopped 10 days ago 912-catapres given to pt BP 159/83 0915-Dr Zaman in to see pt 1020-pt to procedure documented in this encounter H&P Notes * Edinson Leary - 10/16/2014 5472 EDT Admission H+P Admit Date: 10/16/2014 Date [...] care Edinson Leary MD 10/16/2014 21:52 [id number] Cosigned by Devon Zaman MD at 10/17/2014 20:03 EDT documented in this encounter Procedure Notes * Devon Zaman MD - 10/16/2014 1135 EDTProcedure(s): KIDNEY BIOPSY Pre-Procedure Diagnose(s): CKD (chronic kidney disease) stage 4, GFR 15-29 ml/min ([facility]) Post-Procedure Diagnose(s): CKD (chronic kidney disease) stage 4, GFR 15-29 ml/min ([facility]) Kidney Biopsy PROCEDURE REPORT SERVICE DATE: 10/16/2014 OPERATORS: Liu Adams MD SORTER LUMBER STRAIGHTENER: Devon Zaman MD PROCEDURE: US guided Percutaneous needle core biopsy of the right caddo kidney. INDICATIONS Ethel Akins is a 64 y.o.-year-old male with a history of CKD stage 4. The glomerular filtration rate is 16ml/min/1.73m2. At the time of this procedure, the patient had no clinical complaints. NARRATIVE First, it was ascertained that the patient's coagulation parameters and blood pressure were appropriate for the procedure. To obtain informed consent, Dr Liu Adams MD reviewed the indications andrisks of [...] fellow to compare prior to planning discharge. Liu Adams MD Renal fellow PGY 4 Hb [...] bleeding. His vitals remain normal for now. Liu Adams MD I got a call from Dr Bauer (Radiologist) at 17:[address] scan has shown a Rt sided retroperitoneal bleed without any compression or obstruction of the ureter. I hence called (Attending bullard machine operator oncall) and Dr Morse (Renal fellow oncall) to update them of the situation and the plan to admit him for observation. Liu Adams MD I was present at the bedside throughout the procedure. The initial 4 passes did not yield adequate tissue. Because of the need to explain progressive kidney failure and the absence of obvious complications and additional two passes were made and adequate cores were obtained. All tissue was taken topathology and processing of the tissue was discussed.. Devon Zaman. 10/16/2014 19:22 documented in this encounter Miscellaneous [...] his . Prescriptions were sent to the [facility] pharmacy. Marisabel Wadsworth RN 10/17/2014 14:29 * Plan of Care - Bev Merino RN - 10/17/2014 0329 EDT Problem: Daily Care Plan Goals Goal: Care Plan Documentation 10/16/142014 Care Plan Focus Area of Focus Education Goal This Shift orient pt to room, unit and facility Data: Pt admitted to [facility]- from [facility] s/p R renal biopsy post bleed, Pt [...] glomerulonephritis Chronic kidney disease, stage IV (severe) ([facility]) Ordered: 10/17/2014 documented as of this encounter [...] 10.60(H) 4.0 - 10.4 K/cmm 10/17/2014 13:01 [facility] RBC 3.87(L) 4.36 - 5.78 M/cmm 10/17/2014 13:01 [facility] Hemoglobin 11.4(L) 13.8 - 17.3 gm/dl 10/17/2014 13:01 [facility] HCT 33.7(L) 39.5 - 50.2 % 10/17/2014 13:01 [facility] MCV 87 81 - 95 fl 10/17/2014 13:01 [facility] MCH 29.5 27.6 - 33.0 pg 10/17/2014 13:01 [facility] MCHC 34.0 32.8 - 36.4 gm/dl 10/17/2014 13:01 [facility] RDW-CV 13.8 11.8 - 14.1 % 10/17/2014 13:01 [facility] RDW-SD 41.6 36.5 - 45.9 fl 10/17/2014 13:01 [facility] PLT 277 141 - 320 K/cmm 10/17/2014 13:01 [facility] MPV 8.1 7.5 - 11.2 fl 10/17/2014 13:01 T [facility] Blood specimen (specimen) BLOOD SPECIMEN / Unknown 10/17/2014 12:45 EDT 10/17/2014 12:54 EDT us Edinson Leary MD HEMATOLOGY & PF4 ORDERABLES F inal Result [facility] [address] [place] [address] * (ABNORMAL) HEMAGRAM (10/17/2014 6:16 EDT) WBC 9.51 4.0 - 10.4 K/cmm 10/17/2014 7:32 [facility] RBC 3.65(L) 4.36 - 5.78 M/cmm 10/17/2014 7:32 [facility] Hemoglobin 11.1(L) 13.8 - 17.3 gm/dl 10/17/2014 7:32 [facility] HCT 31.5(L) 39.5 - 50.2 % 10/17/2014 7:32 [facility] MCV 86 81 - 95 fl 10/17/2014 7:32 [facility] MCH 30.3 27.6 - 33.0 pg 10/17/2014 7:32 [facility] MCHC 35.2 32.8 - 36.4 gm/dl 10/17/2014 7:32 [facility] RDW-CV 13.5 11.8 - 14.1 % 10/17/2014 7:32 [facility] RDW-SD 40.7 36.5 - 45.9 fl 10/17/2014 7:32 [facility] PLT 272 141 - 320 K/cmm 10/17/2014 7:32 [facility] MPV 8.3 7.5 - 11.2 fl 10/17/2014 7:32 [facility] Blood specimen (specimen) BLOOD SPECIMEN / Unknown 10/17/2014 6:16 EDT 10/17/2014 6:45 EDT us Edinson Leary MD HEMATOLOGY & PF4 ORDERABLES F inal Result [facility] [address] [place] [address] * (ABNORMAL) HEMAGRAM (10/16/2014 23:56 EDT) WBC 10.12 4.0 - 10.4 K/cmm 10/17/2014 0:08 [facility] RBC 3.71(L) 4.36 - 5.78 M/cmm 10/17/2014 0:08 [facility] Hemoglobin 11.0(L) 13.8 - 17.3 gm/dl 10/17/2014 0:08 [facility] HCT 32.0(L) 39.5 - 50.2 % 10/17/2014 0:08 [facility] MCV 86 81 - 95 fl 10/17/2014 0:08 [facility] MCH 29.5 27.6 - 33.0 pg 10/17/2014 0:08 [facility] MCHC 34.3 32.8 - 36.4 gm/dl 10/17/2014 0:08 [facility] RDW-CV 13.7 11.8 - 14.1 % 10/17/2014 0:08 [facility] RDW-SD 42.4 36.5 - 45.9 fl 10/17/2014 0:08 [facility] PLT 265 141 - 320 K/cmm 10/17/2014 0:08 [facility] MPV 7.8 7.5 - 11.2 fl 10/17/2014 0:08 [facility] Blood specimen (specimen) BLOOD SPECIMEN / Unknown 10/16/2014 23:56 EDT 10/17/2014 us Edinson Leary MD HEMATOLOGY & PF4 ORDERABLES F inal Result [facility] [address] [place] [address] * PROTIME (10/16/2014 20:12 EDT) Pro Time 11.5 9.5 - 12.3 secs 10/16/2014 21:05 EDT [facility] I.N.R. 1.1 0.9 - 1.1 Ratio 10/16/2014 21:05 EDT [facility] Comment: Moderate Intensity Coumadin INR = 2.0-3.0 Adjustments in anticoagulant therapy dose should be based upon the INR and NOT the Pro Time. Blood specimen (specimen) BLOOD SPECIMEN / Unknown 10/16/2014 20:12 EDT 10/16/2014 20:29 EDT us Edinson Leary MD HEMATOLOGY & PF4 ORDERABLES F inal Result [facility] [address] [place] [address] * CT ABDOMEN, PELVIS WO CONTRAST (10/16/2014 [...] above interpretation and agree with the findings. us Liu Adams MD IMG CT ORDER IGNACIO Final Result * (ABNORMAL) HEMAGRAM (10/16/2014 16:07 EDT) WBC 8.58 4.0 - 10.4 K/cmm 10/16/2014 16:18 EDT [facility] RBC 4.01(L) 4.36 - 5.78 M/cmm 10/16/2014 16:18 EDT [facility] Hemoglobin 11.7(L) 13.8 - 17.3 gm/dl 10/16/2014 16:18 EDT [facility] HCT 34.5(L) 39.5 - 50.2 % 10/16/2014 16:18 EDT [facility] MCV 86 81 - 95 fl 10/16/2014 16:18 EDT [facility] MCH 29.2 27.6 - 33.0 pg 10/16/2014 16:18 EDT [facility] MCHC 33.9 32.8 - 36.4 gm/dl 10/16/2014 16:18 T [facility] RDW-CV 13.5 11.8 - 14.1 % 10/16/2014 16:18 EDT [facility] RDW-SD 41.6 36.5 - 45.9 fl 10/16/2014 16:18 EDT [facility] PLT 274 141 - 320 K/cmm 10/16/2014 16:18 T [facility] MPV 7.9 7.5 - 11.2 fl 10/16/2014 16:18 EDT [facility] Blood specimen (specimen) BLOOD SPECIMEN / Unknown 10/16/2014 16:07 EDT 10/16/2014 16:15 EDT us Liu Adams MD HEMATOLOGY & PF4 ORDERABLES Final Result [facility] [address] [place] [address] * (ABNORMAL) HEMAGRAM (10/16/2014 14:55 EDT) WBC 8.88 4.0 - 10.4 K/cmm 10/16/2014 15:29 [facility] RBC 4.03(L) 4.36 - 5.78 M/cmm 10/16/2014 15:29 [facility] Hemoglobin 11.8(L) 13.8 - 17.3 gm/dl 10/16/2014 15:29 [facility] HCT 34.6(L) 39.5 - 50.2 % 10/16/2014 15:29 [facility] MCV 86 81 - 95 fl 10/16/2014 15:29 [facility] MCH 29.3 27.6 - 33.0 pg 10/16/2014 15:29 [facility] MCHC 34.1 32.8 - 36.4 gm/dl 10/16/2014 15:29 [facility] RDW-CV 13.6 11.8 - 14.1 % 10/16/2014 15:29 [facility] RDW-SD 40.7 36.5 - 45.9 fl 10/16/2014 15:29 [facility] PLT 277 141 - 320 K/cmm 10/16/2014 15:29 [facility] MPV 8.2 7.5 - 11.2 fl 10/16/2014 15:29 [facility] Blood specimen (specimen) BLOOD SPECIMEN / Unknown 10/16/2014 14:55 EDT 10/16/2014 15:13 EDT us Liu Adams MD HEMATOLOGY & PF4 ORDERABLES Final Result [facility] [address] [place] [address] * SURGICAL PATHOLOGY (10/16/2014 11:28 EDT) Pathology Report: SURGICAL PATHOLOGY REPORT Reports generated via electronic interface contain original data; however they are lacking the format of the original report. Caution should be taken when reading/interpreting unformatted reports. Name: ? ETHEL AKINS ? Accession #: ? [id number] ? : ? 1950 (Age: 64) ??M ?Collect Date: ? 10/16/2014 ? Location: ? B003 ? Receive Date: ? 10/16/2014 ? Provider: DEVON ZAMAN MD Copy to: [place] GHOSH ? Provisional Light Microscopic Diagnosis: KIDNEY, NENANA, NEEDLE CORE BIOPSIES: - ??Diffuse and nodular [...] Date Reported: ? 10/28/2014 ? Interpretation KIDNEY, NENANA, NEEDLE CORE BIOPSIES: - ??Features consistent with diabetic glomerulopathy. ??See comment. 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 ??Immunofluorescence showed no specific glomerular staining. Electron microscopy findings correlate with the light and immunofluorescence findings in this case. ??There is no evidence of an immune complex mediated glomerular injury. Dr. Horowitz 10/28/2014 3:28 PM Description EM#[id number] Portions of this renal biopsy are received [...] Reported: ? 10/20/2014 ? Interpretation KIDNEY, RIGHT NENANA, NEEDLE CORE BIOPSIES: - ??Nonspecific staining by [...] against IgG, IgA, IgM, C3, C1q, Fibrinogen, Summer Set, Lambda, and polyclonal immunoglobulins (IgG, IgA, IgM). There is no specific staining of the glomeruli with any of the antibodies. Sclerotic regions of glomeruli show nonspecific entrapment with anti-IgM, anti-C3 and anti-C1q. ??There is accentuation of thickened glomerular and tubular basement membranes with many of the antibodies. ??The intratubular casts stain appropriately. ??There is no specific staining of the tubular basement membranes with anti-Summer Set or anti-lambda light chains. NOTE: ??One or [...] performance characteristics have been determined by the [facility]. ??The positive and negative controls worked [...] confirmed the above diagnosis. End of Report [facility] 10/16/2014 11:2 8 EDT 10/16/2014 11:28 EDT Devon Zaman MD PATHOLOGY ORDERABLES F inal Result [facility] [address] [place] [address] * (ABNORMAL) HEMAGRAM (10/16/2014 9:25 EDT) WBC 10.66(H) 4.0 - 10.4 K/cmm 10/16/2014 9:34 EDT [facility] RBC 4.39 4.36 - 5.78 M/cmm 10/16/2014 9:34 [facility] Hemoglobin 13.0(L) 13.8 - 17.3 gm/dl 10/16/2014 9:34 [facility] HCT 37.9(L) 39.5 - 50.2 % 10/16/2014 9:34 [facility] MCV 86 81 - 95 fl 10/16/2014 9:34 T [facility] MCH 29.5 27.6 - 33.0 pg 10/16/2014 9:34 [facility] MCHC 34.2 32.8 - 36.4 gm/dl 10/16/2014 9:34 [facility] RDW-CV 13.6 11.8 - 14.1 % 10/16/2014 9:34 [facility] RDW-SD 42.0 36.5 - 45.9 fl 10/16/2014 9:34 [facility] PLT 278 141 - 320 K/cmm 10/16/2014 9:34 [facility] MPV 8.0 7.5 - 11.2 fl 10/16/2014 9:34 [facility] Blood specimen (specimen) BLOOD SPECIMEN / Unknown 10/16/2014 9:25 EDT 10/16/2014 9:31 EDT us Devon Zaman MD HEMATOLOGY & PF4 ORDER IGNACIO Final Result [facility] [address] [place] [address] documented in this encounter Visit Diagnoses Diagnosis [...] on Thu10/16/14 at 2100, Until Discontinued, Routine 2220 (Given - Provider: Bev Merino RN) 0834 [...] 2001, Until Thu10/17/14 at 1714, Pain, Routine 2045 (Given - Provider: Bev Merino RN)2228 (See Alternative - Provider: Bev Merino RN) 0255 (Given - Provider: Bev Merino RN)0835 (Given - Provider: Marisabel Wadsworth RN)1228 (Given - Provider: Marisabel Wadsworth RN) HYDROmorphone (PF) (DILAUDID) 1 mg/mL injection 0.2-0.6 mg (CANCELED)(Linked Group 1) 0.2-0.6 mg, intravenous, EVERY 4 HOURS PRN, Starting on Thu10/16/14 at 2001, Until Thu10/17/14 at 1714, Pain, Routine 2045 (See Alternative - Provider: Bev Merino RN)2228 [...] 2002, Until Thu10/17/14 at 1714, Pain, Routine Or [...] 10/04 documented in this encounter Care Teams Silicator Relationship Specialty Start Date End Date Albania Denis DO [address] [place] [address] PCP - General 09/27/14 documented as of this encounter
--- OUTSIDE RECORDS SUMMARY | 2024-05-16 17:14 | XMS_ITS | Encounter Summary ---
Author Organization [facility] Address [address] [place] [address] Care Team Providers Care Debt Recovery Officer Name Role Phone Urbano Denis DO Primary Care Provider [phone]- [phone] Encounter Details Date Type Department Care Team (Late st Contact Info) Description 06/17/2019 Lab Requisition [facility] Pathology & Laboratory Medicine - [address] [address] Unknown, Provider, Social History Tobacco Use Types [...] 8.7 See Note ng/mL 06/18/2019 12:12 EST [facility] Comment: NOTE: Therapeutic range is dependent on the clinical situation. Assayed utilizing [employer] Chemiluminescent technology. ??Values obtained using different assay methohds cannot be used interchangeably. Blood VENOUS BLOOD / Unknown 06/17/2019 11:30 EST 06/17/2019 22:31 EST us Provider Unknown CHEMISTRY & BLOOD GAS ORDERA BLES Final Result [facility] [address] [place] [address] documented in this encounter Visit Diagnoses Not on filedocumented in this encounter Care Teams Debt Recovery Officer Relationship Specialty Start Date End Date Urbano Denis DO [address] [place] [address] PCP - General 09/27/14 documented as of this encounter
--- OUTSIDE RECORDS SUMMARY | 2024-05-16 17:14 | XMS_ITS | Encounter Summary ---
Author Organization [facility] Address [address] [place] [address] Care Team Providers Care Sales Representative Aircraft Name Role Phone Urbano Denis DO Primary Care Provider +1- [phone] Encounter Details Date Type Department Care Team (Late st Contact Info) Description 11/09/2014 Abstract [facility] Nephrology - [address] [place] [place], [place] [id number] Que Lewis MD [address] [place] [phone] Social History Tobacco Use Types Packs/Day [...] Results * HGB (11/08/2014) Hemoglobin, External 12.3 [facility] Blood specimen (specimen) 11/08/2014 us Que Lewis MD HEMATOLOGY & PF4 ORDERABLE S Final Result [facility] * NEPHROLOGY PROFILE (INCLUDES BUN, CREATININE, CALCULATED GFR, ELECTROLYTES, CALCIUM, PHOSPHORUS, ALBUMIN) (11/08/2014) Phosphorus, External 5.3 [facility] Albumin, External 3.9 [facility] BUN, External 82 [facility] Chloride, External 104 [facility] Creatinine, External 4.00 [facility] Potassium, External 4.2 [facility] GFR, Calculated, External 15 [facility] Calculated Calcium, External [facility] Calcium, External 9.0 [facility] Sodium, External 141 [facility] CO2, External 24.0 [facility] Blood specimen (specimen) 11/08/2014 us Que Lewis MD PACKAGES & DNA PROBE ORDER IGNACIO Final Result [facility] documented in this encounter Visit Diagnoses Not on filedocumented in this encounter Care Teams Sales Representative Aircraft Relationship Specialty Start Date End Date Urbano Denis DO [address] [place] [address] PCP - General 09/27/14 documented as of this encounter
--- OUTSIDE RECORDS SUMMARY | 2024-05-16 17:14 | XMS_ITS | Encounter Summary ---
Author Organization [facility] Address [address] [place] [address] Care Team Providers Care Cold Press Loader Name Role Phone Urbano Denis DO Primary Care Provider +1- [phone] Reason for Referral * Radiology Services (Routine/Next Available) - Closed Specialty Diagnoses / Procedures Referred By Contac t Referred To Contact Diagnoses Chronic kidney disease, stage IV (severe) ([facility]) Proteinuria Procedures RAD US GUIDANCE, BX, ASP, INJ, LOC Que Bender MD Phone: tel: fax: Referral ID Status Reason Start Date Expiration Date Visits Re quested Visits Authorized [id number] Closed 10/06/2014 1 1 Reason for Visit * Reason Comments Chronic Kidney Disease * Consult (Routine) - Closed Specialty Diagnoses / Procedures Referred By Contac t Referred To Contact Diagnoses Chronic renal failure Urbano Denis DO [address] [place] [address] Phone: tel: fax: Osito Traylor MD Phone: tel: fax: Referral ID Status Reason Start Date Expiration Date Visits Re quested Visits Authorized [id number] Closed 1 1 Encounter Details Date Type Department Care Team (Late st Contact Info) Description 10/05/2014 9:00 EDT Office Visit [facility] Nephrology [address] [address] Que Bender MD [address] [facility] [address] [phone] Chronic kidney disease, stage IV (severe) ([facility]) (Primary Dx); Proteinuria; Secondary hyperparathyroidism (of renal origin); Diabetes mellitus type 2, controlled ([facility]) ([facility]) Social History Tobacco Use Types Packs/Day [...] Pressure 155/82 10/05/2014 09 EDT Pulse 57 10/05/2014 09 EDT Temperature - - Respiratory Rate - - Oxygen Saturation - - Inhaled Oxygen Concentration - - Weight 105.8 kg (233 lb 4 oz) 10/05/2014 09 ED T Height - - Body Mass Index - - documented in this encounter Patient Instructions * Patient Instructions* Que Bender MD - 10/05/2014 9:34 EDT i will call you regarding stopping plavix and starting aldactone (spironolactone) Will call you to schedule kidney biopsy documented in this encounter Ordered Prescriptions Prescription Sig Dispense Quantity Refills Last Filled Start Date End Date spironolactone (ALDACTONE) 25 mg tablet Take 1 Tab by mouth daily 30 Tab 5 10/06/2014 11/23/2014 documented in this encounter Progress Notes * Radha Judge RN - 10/06/2014 1040 EDT Pending. done * Que Bender MD - 10/05/[address] [facility] Nephrology New Patient DATE OF SERVICE: 10/05/2014 NAME: Cody Bolden REASON FOR VISIT: Chronic Kidney Disease DATE OF : 1950 HISTORY OF PRESENT ILLNESS: 64 y.o. year old male who I am requested to see in consultation by Urbano Denis DO for Chronic Kidney Disease. History gathered from patient and review of medical records from visits with Dr. Loya ([facility] focus puller) and conversation with Dr. Denis. Chronic Kidney [...] for a second opinion today. Hospitalized at [facility] with volume overload and hypertension, responding [...] 1 months to review kidney biopsy results. Que Bender MD 10/06/2014 ADDENDUM: 10/02/14: k 3.9, co2 28, cr 3.3. OK to stop potassium chloride and start spironolactone 25mg daily. Discussed with patient via phone. documented in this encounter Miscellaneous Notes * Addendum Note - Que Bender MD - 10/06/2014 0927 EDTAddended by: QUE BENDER. on: 10/06/2014 09:27 Modules accepted: Orders, Medications, Level of Service documented in this encounter Plan of Treatment Not on file documented as of this encounter Procedures Procedure Name Priority Date/Time Associated Diagnosis Comments RAD US GUIDANCE, BX, ASP, INJ, LOC Routine 10/16/2014 11:39 EDT Chronic kidney disease, stage IV (severe) ([facility]) Proteinuria documented in this encounter Results * RAD US GUIDANCE, BX, ASP, INJ, LOC (10/16/2014 11:39 EDT) Anatomical Region Laterality Modality Other 10/16/2014 11:3 9 EDT 10/16/2014 17:03 EDT Narrative 10/16/2014 17:03 EDT RAD US GUIDANCE, BX, ASP, INJ, LOC ??10/16/2014 11:39 AM Signs and Symptoms/Comments: 585.4-Chronic kidney disease, stage IV (severe)-ICD-9-CM 791.1-Tzeheidnoiy-MLL-9-CM; ckd with nephrotic range proteinuria Comparison: None Description: Dr. Soni provided ultrasound guidance for core biopsies of [place] right kidney. Biopsy performed by nephrology service. Post biopsy ultrasound video images show no significant perinephric hemorrhage. Procedure Note Franko Soni MD - 10/16/2014 RAD US GUIDANCE, BX, ASP, INJ, LOC 10/16/2014 11:39 AM Signs and Symptoms/Comments: 585.4-Chronic kidney disease, stage IV (severe)-ICD-9-CM 791.5-Gjnhvpslcdh-PFV-9-CM; ckd with nephrotic range proteinuria Comparison: None Description: Dr. Soni provided ultrasound guidance for core biopsies of [place] right kidney. Biopsy performed by nephrology service. Post biopsy ultrasound video images show no significant perinephric hemorrhage. us Que Bender MD IMG US ORDERABLES Final Re sult documented in this encounter Visit Diagnoses Diagnosis Chronic kidney disease, stage IV (severe) ([facility])- Primary Chronic kidney disease, Stage IV (severe) Proteinuria Secondary hyperparathyroidism (of renal origin) Diabetes mellitus type 2, controlled ([facility]) Type II or unspecified type diabetes [...] may reflect changes made after this encounter. furosemide (LASIX) 20 mg tablet Take 80 mg by mouth 2 times daily 5 carvedilol (COREG) 12.5 mg tablet Take 12.5 mg by mouth 2 times daily with breakfast and dinner 5 added in this encounter Care Teams Cold Press Loader Relationship Specialty Start Date End Date Urbano Denis DO [address] [place] [address] PCP - General 09/27/14 documented as of this encounter
--- OUTSIDE RECORDS SUMMARY | 2024-05-16 17:14 | XMS_ITS | Encounter Summary ---
Author Organization [facility] Address [address] [place] [address] Care Team Providers Care Chute Man Name Role Phone Urbano Denis DO Primary Care Provider +1- [phone] Encounter Details Date Type Department Care Team (Late st Contact Info) Description 02/27/2021 Lab Requisition [facility] Pathology & Laboratory Medicine - [facility] [address] [place] [address] Outr Resulting Lab, Provider Social History Tobacco [...] 12.9 See Note ng/mL 02/28/2021 12:56 EDT [facility] Comment: NOTE: Therapeutic range is dependent on the clinical situation. Assayed utilizing [employer] Chemiluminescent technology. ??Values obtained using different assay methods cannot be used interchangeably. Blood VENOUS BLOOD / Unknown 02/26/2021 11:30 EDT 02/27/2021 15:57 EDT us Provider Outr Resulting Lab CHEMISTRY & BLOOD GA S ORDERABLES Final Result [facility] [address] [place] [address] documented in this encounter Visit Diagnoses Not on filedocumented in this encounter Care Teams Chute Man Relationship Specialty Start Date End Date Urbano Denis DO [address] [place] [address] PCP - General 09/27/14 documented as of this encounter
--- OUTSIDE RECORDS SUMMARY | 2024-05-16 17:14 | XMS_ITS | Encounter Summary ---
Author Organization [facility] Address [address] [place] [address] Care Team Providers Care Test Rider Name Role Phone AdeelUrbano boland DO Primary Care Provider +1- [phone] Reason for Visit * Reason Onset Date Comments Critical Value 10/09/2014 Encounter Details Date Type Department Care Team ([facility] st Contact Info) Description 10/09/2014 Telephone [place] [facility]ph[facility] - [address] [id number] Que Lewis MD [address] [place] [phone] Critical Value Social History Tobacco Use [...] Que Lewis 10/09/14 @ 1320 CALLED FROM [facility] Treatment Plan: no changes per Dr. Lewis. Pt is set up for Biopsy 10/16/14 * Telephone Encounter - Sandra Umaña - 10/09/2014 1324 EDT error documented in this encounter Plan of Treatment Not on file documented as of this encounter Visit Diagnoses Not on filedocumented in this encounter Care Teams Test Rider Relationship Specialty Start Date End Date Urbano Denis DO [address] [place] [address] PCP - General 09/27/14 documented as of this encounter
--- OUTSIDE RECORDS SUMMARY | 2024-05-16 17:14 | XMS_ITS | Encounter Summary ---
Author Organization [facility] Address [address] [place] [address] Care Team Providers Care Integration Software Engineer Name Role Phone Urbano Denis DO Primary Care Provider +1- [phone] Encounter Details Date Type Department Care Team (Late st Contact Info) Description 02/23/2021 Lab Requisition [facility] Pathology & Laboratory Medicine - [facility] [address] [place] [address] Outr Resulting Lab, Provider Social History Tobacco [...] Priority Date/Time Associated Diagnosis Comments ZZCOVID-19 TEST [facility] PCR Today 02/22/2021 12:30 EDT COVID-19 TESTING Routine 02/22/2021 12:3 0 EDT documented in this encounter Results * COVID-19 TEST [facility] PCR (02/22/2021 12:30 EDT) Swab ENTIRE NASOPHARYNX / Unknown 02/22/2021 12:30 EDT 02/23/2021 21:35 EDT us Provider Outr Resulting Lab MICROBIOLOGY - GENER AL ORDERABLES Final Result [facility] [address] [place] [id number] * COVID-19 TESTING (02/22/2021 12:30 EDT) COVID-19 rt-PCR Result Negative Negative 02/24/2021 12:44 EDT [facility] Comment: This test has not [...] was performed using the ester SARS-CoV-2 assay ([employer] on the Ester 6800 System Performing Lab Ester 6800 [facility] 02/24/2021 12:44 EDT [facility] Swab 02/22/2021 12:3 0 EDT 02/23/2021 21:35 EDT us Provider Outr Resulting Lab MICROBIOLOGY - GENER AL ORDERABLES Final Result [facility] [address] [place] [address] documented in this encounter Visit Diagnoses Not on filedocumented in this encounter Care Teams Integration Software Engineer Relationship Specialty Start Date End Date Urbano Denis DO [address] [place] [address] PCP - General 09/27/14 documented as of this encounter
--- OUTSIDE RECORDS SUMMARY | 2024-05-16 17:14 | XMS_ITS | Encounter Summary ---
Author Organization [facility] Address [address] [place] [address] Care Team Providers Care Radio Artist Name Role Phone Urbano Denis DO Primary Care Provider +1- [phone] Encounter Details Date Type Department Care Team (Late st Contact Info) Description 11/10/2014 Orders Only [facility] Nephrology - [address] [place] [address] [place], [place] [phone] Que Lewis MD [address] [place] [phone] Social History Tobacco Use Types Packs/Day [...] Refills Last Filled Start Date End Date furosemide (LASIX) 40 mg tablet Take 3 [...] documented as of this encounter Care Teams Radio Artist Relationship Specialty Start Date End Date Urbano Denis DO [address] [place] [address] PCP - General 09/27/14 documented as of this encounter
--- OUTSIDE RECORDS SUMMARY | 2024-05-16 17:14 | XMS_ITS | Encounter Summary ---
Author Organization [facility] Address [address] [place] [address] Care Team Providers Care Dry Starch Supervisor Name Role Phone Urbano Denis DO Primary Care Provider +1- [phone] Encounter Details Date Type Department Care Team (Late st Contact Info) Description 12/15/2019 Lab Requisition [facility] Pathology & Laboratory Medicine - [address] [address] Outr Resulting Lab, Provider Social History Tobacco [...] 12.9 See Note ng/mL 12/16/2019 13:42 EDT [facility] Comment: NOTE: Therapeutic range is dependent on the clinical situation. Assayed utilizing [employer] Chemiluminescent technology. ??Values obtained using different assay methods cannot be used interchangeably. Blood VENOUS BLOOD / Unknown 12/15/2019 10:40 EDT 12/15/2019 16:55 EDT us Provider Outr Resulting Lab CHEMISTRY & BLOOD GA S ORDERABLES Final Result [facility] [address] [place] [address] documented in this encounter Visit Diagnoses Not on filedocumented in this encounter Care Teams Dry Starch Supervisor Relationship Specialty Start Date End Date Urbano Denis DO [address] [place] [address] PCP - General 09/27/14 documented as of this encounter
--- OUTSIDE RECORDS SUMMARY | 2024-05-16 17:14 | XMS_ITS | Encounter Summary ---
Author Organization [facility] Address [address] [place] [address] Care Team Providers Care Business School Dean Name Role Phone Urbano Denis DO Primary Care Provider +1- [phone] Reason for Visit * Reason Onset Date Comments Paperwork request 03/29/2015 Encounter Details Date Type Department Care Team (Late st Contact Info) Description 03/29/2015 Telephone [facility] Nephrology - [address] [phone] Arianna Richardson MD [address] [place] [address], [address] [place] [phone] Paperwork request Social History Tobacco [...] No 10/16/2014 20:52 Bve Min RN * Are you blind or [...] the pt's Txp coordinator, Ruchi Valles, at [facility]. Provided phone number: [phone]. * Telephone Encounter - Brunilda Pinon - 03/29/2015 1535 EDT Faxed office note from Dr. Lewis on 01/04/15. LMOM asking pt to clarify the department or person at the [facility]. Also asked for a phone number or fax number. * Telephone Encounter - Brunilda Pinon - 03/29/2015 1116 EDT Caller wants to be sure that the pt's last visit note from Dr. Lewis have been sent to the pt's PCP and [facility]. documented in this encounter Plan of Treatment Not on file documented as of this encounter Visit Diagnoses Not on filedocumented in this encounter Care Teams Business School Dean Relationship Specialty Start Date End Date Urbano Denis DO [address] [place] [address] PCP - General 09/27/14 documented as of this encounter
--- OUTSIDE RECORDS SUMMARY | 2024-05-16 17:14 | XMS_ITS | Encounter Summary ---
Author Organization [facility] Address [address] [place] [address] Care Team Providers Care Diesel Technology Instructor Name Role Phone Urbano Denis DO Primary Care Provider +1- [phone] Encounter Details Date Type Department Care Team (Late st Contact Info) Description 09/12/2020 Lab Requisition [facility] Pathology & Laboratory Medicine - [facility] [address] [place] [address] Outr Resulting Lab, Provider Social History Tobacco [...] 19 - 88 pg/mL 09/13/2020 10:[address] [facility] Blood VENOUS BLOOD / Unknown 09/12/2020 11:08 EST 09/12/2020 15:46 EST us Provider Outr Resulting Lab CHEMISTRY & BLOOD GA S ORDERABLES Final Result Performing Organization Address City/State/[facility] Co de Phone Number [facility] [address] [place] [address] * TACROLIMUS ([id number]) (09/12/2020 11:08 EST) Tacrolimus 15.2 See Note ng/mL 09/13/2020 14:[address] [facility] Comment: NOTE: Therapeutic range is dependent on the clinical situation. Assayed utilizing [employer] Chemiluminescent technology. ??Values obtained using different assay methods cannot be used interchangeably. Blood VENOUS BLOOD / Unknown 09/12/2020 11:08 EST 09/12/2020 15:47 EST us Provider Outr Resulting Lab CHEMISTRY & BLOOD GA S ORDERABLES Final Result [facility] [address] [place] [address] documented in this encounter Visit Diagnoses Not on filedocumented in this encounter Care Teams Diesel Technology Instructor Relationship Specialty Start Date End Date Urbano Denis DO [address] [place], [place] [address] PCP - General 09/27/14 documented as of this encounter
--- OUTSIDE RECORDS SUMMARY | 2024-05-16 17:14 | XMS_ITS | Encounter Summary ---
Author Organization [facility] Address [address] [place] [address] Care Team Providers Care Quantitative Consultant Name Role Phone AdeelUrbano DO Primary Care Provider +1- [phone] Reason for Visit * Reason Onset Date Comments Other 10/10/2014 Encounter Details Date Type Department Care Team (Late st Contact Info) Description 10/10/2014 Telephone [facility] Nephrology - [address] [phone] Que Lewis MD [address] [phone] Other Social History Tobacco Use [...] - 10/10/2014 1442 EDT Faxing labs from [facility], will be entered in Prism. DONE * [...] on filedocumented in this encounter Care Teams Quantitative Consultant Relationship Specialty Start Date End Date Urbano Denis DO [address] [place] [address] PCP - General 09/27/14 documented as of this encounter
--- OUTSIDE RECORDS SUMMARY | 2024-05-16 17:14 | XMS_ITS | Encounter Summary ---
Author Organization [facility] Address [address] [place] [address] Care Team Providers Care Lead Mechanic Name Role Phone Urbano Denis DO Primary Care Provider +1- [phone] Encounter Details Date Type Department Care Team (Late st Contact Info) Description 12/20/2019 Lab Requisition [facility] Pathology & Laboratory Medicine - [address] [address] Outr Resulting Lab, Provider Social History Tobacco [...] 11.8 See Note ng/mL 12/21/2019 13:29 EDT [facility] Comment: NOTE: Therapeutic range is dependent on the clinical situation. Assayed utilizing [employer] Chemiluminescent technology. ??Values obtained using different assay methods cannot be used interchangeably. Blood VENOUS BLOOD / Unknown 12/20/2019 7:25 EDT 12/20/2019 17:59 EDT us Provider Outr Resulting Lab CHEMISTRY & BLOOD GA S ORDERABLES Final Result [facility] [address] [place] [address] documented in this encounter Visit Diagnoses Not on filedocumented in this encounter Care Teams Lead Mechanic Relationship Specialty Start Date End Date Urbano Denis DO [address] [place] [address] PCP - General 09/27/14 documented as of this encounter
--- OUTSIDE RECORDS SUMMARY | 2024-05-16 17:14 | XMS_ITS | Encounter Summary ---
Author Organization [facility] Address [address] [place] [address] Care Team Providers Care Fitness Coach Name Role Phone Urbano Denis DO Primary Care Provider +1- [phone] Encounter Details Date Type Department Care Team (Late st Contact Info) Description 09/12/2020 Lab Requisition [facility] Pathology & Laboratory Medicine - [facility] [address] [place] [address] Outr Resulting Lab, Provider Social History Tobacco [...] 14.6 See Note mg/dL 09/13/2020 10:38 EST [facility] Comment: NOTE: Reference range has not been established for calcium concentration in random urine specimens. Urine URINE SPECIMEN COLLECTION, CLEAN CATCH / Unknown 09/12/2020 11:08 EST 09/12/2020 15:47 EST us Provider Outr Resulting Lab URINALYSIS ORDERABLE S Final Result [facility] [address] [place] [address] * MAGNESIUM,URINE RANDOM (09/12/2020 11:08 EST) Magnesium, Urine 3.6 See Note mg/dL 09/13/2020 10:41 EST [facility] Comment: NOTE: Reference range has not been established for magnesium concentration in random urine specimens. Urine URINE SPECIMEN COLLECTION, CLEAN CATCH / Unknown 09/12/2020 11:08 EST 09/12/2020 15:47 EST us Provider Outr Resulting Lab URINALYSIS ORDERABLE S Final Result Performing Organization Address [facility] Co de Phone Number [facility] [address] [place] [address] * PHOSPHOROUS, URINE RANDOM (09/12/2020 11:08 EST) Phosphorous, Urine 45.4 See Note mg/dL 09/13/2020 10:38 EST [facility] Comment: NOTE: Reference range has not been established for phosporous concentration in random urine specimens. Urine URINE SPECIMEN COLLECTION, CLEAN CATCH / Unknown 09/12/2020 11:08 EST 09/12/2020 15:47 EST us Provider Outr Resulting Lab URINALYSIS ORDERABLE S Final Result Performing Organization Address [facility] de Phone Number [facility] [address] [place] [address] documented in this encounter Visit Diagnoses Not on filedocumented in this encounter Care Teams Fitness Coach Relationship Specialty Start Date End Date Urbano Denis DO [address] [place] [address] PCP - General 09/27/14 documented as of this encounter
--- OUTSIDE RECORDS SUMMARY | 2024-05-16 17:14 | XMS_ITS | Encounter Summary ---
Author Organization [facility] Address [address] [place] [address] Care Team Providers Care Automotive Manager Name Role Phone Urbano Denis DO Primary Care Provider +1- [phone] Encounter Details Date Type Department Care Team (Late st Contact Info) Description 11/09/2014 Abstract [facility] Nephrology - [address] [place] [address] [place], [place] [address] Que Lewis MD [address] [place] [phone] Social History Tobacco Use Types Packs/Day [...] * PTH INTACT (11/08/2014) PTH, External 123 [facility] Blood specimen (specimen) 11/08/2014 Que Lewis MD CHEMISTRY & BLOOD [facility] Final Result [facility] documented in this encounter Visit Diagnoses Not on filedocumented in this encounter Care Teams Automotive Manager Relationship Specialty Start Date End Date Urbano Denis DO [address] [place] [address] PCP - General 09/27/14 documented as of this encounter
--- OUTSIDE RECORDS SUMMARY | 2024-05-16 17:14 | XMS_ITS | Encounter Summary ---
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
--- OUTSIDE RECORDS SUMMARY | 2024-05-16 17:14 | XMS_ITS | Encounter Summary ---
Author Organization [facility] Address [address] [place] [address] Care Team Providers Care Historical Records Administrator Name Role Phone AdeelUrbano DO Primary Care Provider +1- [phone] Reason for Visit * Reason Onset Date Comments Other 09/28/2014 Encounter Details Date Type Department Care Team ([facility] st Contact Info) Description 09/28/2014 Telephone [facility] Nephrology - [address] [phone] Que Lewis MD [address] [phone] Other Social History Tobacco Use [...] Encounter - Que Lewis MD - 10/05/2014 0992 EDT Please get results of lab tests (chemistry) done most recently (thursday) at [facility] * Telephone Encounter - Que Lewis MD - 09/28/2014 1129 EDT Always up for a good baffel * Telephone Encounter - Radha Judge, RN - 09/28/2014 0920 EDT Spoke with : records release faxed to [facility]. Signed by verbal order. Pt and wifecalled to let us do this. DONE * Telephone Encounter - Ethel Persaud - 09/28/2014 0911 EDT Patient has given [facility] the ok to send his records to [facility]. However they need A request from us asking for them. FAX #[phone].. documented in this encounter Plan of Treatment Not on file documented as of this encounter Visit Diagnoses Not on filedocumented in this encounter Care Teams Historical Records Administrator Relationship Specialty Start Date End Date Urbano Denis DO [address] [place] [address] PCP - General 09/27/14 documented as of this encounter
--- OUTSIDE RECORDS SUMMARY | 2024-05-16 17:14 | XMS_ITS | Encounter Summary ---
Author Organization [facility] Address [address] [place] [address] Care Team Providers Care Operations And Maintenance Technican Name Role Phone AdeelUrbano toscano Primary Care Provider +1- [phone] Reason for Visit * Reason Onset Date Comments Labs Only 10/12/2014 pt ptt Encounter Details Date Type Department Care Team (Late st Contact Info) Description 10/12/2014 Telephone [facility] Nephrology - [address] [phone] Radha Judge, RN [address] [place] [address] Labs Only (pt ptt) Social History Tobacco [...] Encounter - Radha Judge RN - 10/12/2014 1613 EDT ----- Message from Que Lewis MD sent at 10/12/2014 12:59 EDT ----- Any PT/INR results on this pateint yet? Just want to make sure they are done prior to biposy for Thursday. documented in this encounter Plan of Treatment Not on file documented as of this encounter Visit Diagnoses Not on filedocumented in this encounter Care Teams Operations And Maintenance Technican Relationship Specialty Start Date End Date Urbano Denis DO [address] [place] [address] PCP - General 09/27/14 documented as of this encounter
--- OUTSIDE RECORDS SUMMARY | 2024-05-16 17:14 | XMS_ITS | Encounter Summary ---
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 Answer Date of Assessment Author No 10/16/2014 20:52 Bev Min RN * Are you blind or do you have serious difficulty seeing, even when wearing glasses? Answer Date of Assessment Author No 10/16/2014 20:52 APRILT Bev Merino RN * Do you have serious difficulty walking or climbing stairs? (5 years old or older) Answer Date of Assessment Author No 10/16/2014 20:52 EDT Bev Merino RN * Do you have difficulty dressing [...] Que Lewis MD - 01/04/2015 1041 EDT [facility] Nephrology Clinic Note DATE OF SERVICE: 01/04/2015 NAME: Cody Gomez Yuan : 1950 Patient Active Problem List Diagnosis [...] HISTORY: Cody Bolden has been seen at [facility] regarding kidney transplantation and during that process [...] evaluation with the home dialysis clinic in [place] due to the travel distance, but remains [...] would like to receive this care in [facility] as it is much closer for him. I have called [facility] to contact Dr. Franco regarding dialysis through his group, but have been instructed to discuss with Dr. Loya, the patient's previous nurse esthetician, and am awaiting a return call. Hypertension [...] Loya regarding in-center and home dialysis in [facility]. 5. Return to clinic in 2 weeks if dialysis not started sooner. Que Lewis M.D. 01/12/2015 ADDENDUM: No change in symptoms. i did speak with Dr. Loya, and he arranged for insertion of TDC and starting dialysis. Nephrology care now transitioned to [facility]. 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
--- OUTSIDE RECORDS SUMMARY | 2024-05-16 17:14 | XMS_ITS | Encounter Summary ---
Author Organization [facility] Address [address] [place] [address] Care Team Providers Care Manager Of Administration Name Role Phone Urbano Denis DO Primary Care Provider +1- [phone] Encounter Details Date Type Department Care Team (Late st Contact Info) Description 10/03/2014 Abstract [facility] Nephrology - [address] [place], [place] [phone] Que Lewis MD [address] [place] [phone] Social History Tobacco Use Types Packs/Day [...] RANDOM (05/22/2014) Tot Prot,Ur Random, External 570 [facility] Total Protein, 24 Hour Calc, [facility] Urine specimen (specimen) 05/22/2014 [facility] Adeel DO URINALYSIS ORDERABLES Francisca l Result [facility] * CREATININE, URINE RANDOM (05/22/2014) Creatinine, Random U (UCRR), External 191 [facility] Urine specimen (specimen) 05/22/2014 [facility] Adeel DO URINALYSIS ORDERABLES Francisca l Result [facility] * URINALYSIS (05/22/2014) Color UA, External yellow [facility] Clarity UA, External hazy [facility] Glucose UA, [facility] Bilirubin UA, [facility] Ketones UA, External [facility] Specific Pollock UA, External 1.015 [facility] Blood UA, [facility] pH UA, External 5.0 [facility] Protein UA, External >=500 [facility] Urobilinogen UA, External normal [facility] Nitrite UA, [facility] Leukocyte Esterase UA, [facility] Urine specimen (specimen) 05/22/2014 [facility] Adeel DO URINALYSIS ORDERABLES Francisca l Result [facility] * HEMAGRAM (05/22/2014) HCT, External 39.3 [facility] MCH, External [facility] MCV, External [facility] MCHC, External [facility] Hemoglobin, External 13.8 [facility] WBC, External 7.1 [facility] RBC, External 4.57 [facility] PLT, External 285 [facility] RDW-CV, External [facility] Blood specimen (specimen) 05/22/2014 Urbano Denis DO HEMATOLOGY & PF4 ORDERABLE S Final Result [facility] * HEMOGLOBIN A1C (05/22/2014) Hemoglobin A1C, External 5.6 [facility] Est Avg Glucose, External 114 [facility] Blood specimen (specimen) 05/22/2014 Urbano Denis DO CHEMISTRY & BLOOD GAS ORDE RABLES Final Result [facility] * PHOSPHORUS (05/22/2014) Phosphorus, External 3.7 [facility] Blood specimen (specimen) 05/22/2014 us Urbano Denis DO CHEMISTRY & BLOOD GAS ORDE RABLES Final Result [facility] * ALBUMIN (05/22/2014) Albumin, External 3.5 [facility] Blood specimen (specimen) 05/22/2014 Urbano Denis DO CHEMISTRY & BLOOD GAS ORDE RABLES Final Result [facility] * PTH INTACT (05/22/2014) PTH, External 153 [facility] Blood specimen (specimen) 05/22/2014 [facility] Adeel DO [facility] Final Result [facility] * BASIC METABOLIC PANEL (05/22/2014) GFR, Calculated, External 20 [facility] Glucose, Serum, External 124 [facility] Calculated Calcium, External [facility] BUN, External 48 [facility] Calcium, External 9.0 [facility] Chloride, External 103 [facility] CO2, External 28 [facility] Creatinine, External 3.19 [facility] Fasting?, External [facility] Potassium, External 3.6 [facility] Sodium, External 144 [facility] Blood specimen (specimen) 05/22/2014 [facility] CHEMISTRY & BLOOD [facility]AS [facility] Final Result [facility] documented in this encounter Visit Diagnoses Not on filedocumented in this encounter Historical Medications * This list may reflect changes made after this encounter. omeprazole (PRILOSEC) 20 mg capsule Take 20 mg by mouth daily pravastatin (PRAVACHOL) 20 mg tablet Take 20 mg by mouth daily amLODIPine (NORVASC) 10 mg tablet Take 10 mg by mouth daily magnesium oxide (MAG-OX) 400 mg tablet Take 400 mg by mouth daily doxazosin (CARDURA) 2 mg tablet Take 6 mg by mouth daily 5 losartan (COZAAR) 100 mg tablet Take 100 mg by mouth daily 5 calcitRIOL (ROCALTROL) 0.25 mcg capsule Take 0.25 mcg by mouth daily 5 carvedilol (COREG) 6.25 mg tablet Take 6.25 mg by mouth 2 times daily with breakfast and dinner 5 clopidogrel (PLAVIX) 75 mg tablet Take 75 mg by mouth daily 5 furosemide (LASIX) 20 mg tablet Take 20 mg by mouth 2 times daily 5 hydrALAzine (APRESOLINE) 25 mg tablet Take 50 mg by mouth 2 times daily 5 potassium chloride CR (KLOR-CON) 10 mEq tablet extended release Take 20 mEq by mouth daily 5 added in this encounter Care Teams Manager Of Administration Relationship Specialty Start Date End Date Urbano Denis DO [address] [place] [address] PCP - General 09/27/14 documented as of this encounter
--- OUTSIDE RECORDS SUMMARY | 2024-05-16 17:14 | XMS_ITS | Encounter Summary ---
Author Organization [facility] Address [address] [place] [address] Care Team Providers Care Advertising Manager Name Role Phone Urbano Denis DO Primary Care Provider +1- [phone] Reason for Visit * Reason Onset Date Comments Appointment Related 11/21/2014 Encounter Details Date Type Department Care Team ([facility] st Contact Info) Description 11/21/2014 Telephone [facility] Nephrology - [address] [address] Que Perez MD [address] [phone] Appointment Related Social History Tobacco [...] them tomorrow. * Telephone Encounter - Radha Judge RN - 11/21/2014 1558 EDT Spoke with pt's : they are aware to come to appt tomorrow for follow up htn. They wanted to know if he had mailed out note, etc. If not, they can get a copy at [facility]. Pt and informs us that they have appt with transplant [place] for December 21, they have family in [place]. fyi to dr perez. * Telephone Encounter [...] on filedocumented in this encounter Care Teams Advertising Manager Relationship Specialty Start Date End Date Urbaon Denis DO [address] [place] [address] PCP - General 09/27/14 documented as of this encounter
--- OUTSIDE RECORDS SUMMARY | 2024-05-16 17:14 | XMS_ITS | Encounter Summary ---
Author Organization [facility] Address [address] [place] [address] Care Team Providers Care Manager Business Name Role Phone Urbano Denis DO Primary Care Provider +1- [phone] Encounter Details Date Type Department Care Team (Latest Contact Info) Description 09/12/2015 7:20 EST - 09/12/2015 23:59 [facility] Encounter [address] [address] Unknown, Provider, MD Discharge Disposition: Home or Self Care Social [...] Bev Min RN documented in this encounter Medications at Time [...] 180 Tab 0 12/05/2014 CLOPIDOGREL BISULFATE (PLAVIX ORAL)Indications :RESTART OK'D BY DR MAR Take by mouth [...] Code Departure Means Destination Home or Self Long-Term documented in this encounter Plan of Treatment Not on file documented as of this encounter Visit Diagnoses Not on filedocumented in this encounter Care Teams Manager Business Relationship Specialty Start Date End Date Urbano Denis DO [address] [place] [address] PCP - General 09/27/14 documented as of this encounter
--- OUTSIDE RECORDS SUMMARY | 2024-05-16 17:14 | XMS_ITS | Encounter Summary ---
Author Organization [facility] Address [address] [place] [address] Care Team Providers Care News Wire Photo Operator Name Role Phone Urbano Denis DO Primary Care Provider +1- [phone] Reason for Visit * Reason Onset Date Comments Medication Management 10/25/2014 Biopsy Results 10/25/2014 Encounter Details Date Type Department Care Team ([facility] st Contact Info) Description 10/25/2014 Telephone [facility] Nephrology - [address] [phone] Que Lewis MD [address] [phone] Medication Management; Biopsy Results Social [...] with patient * Telephone Encounter - Radha Jugde RN - 10/26/2014 1039 EDT Med list updated appt 11/08/[address] Lewis. DONE * Telephone Encounter - Aubrey Willis MD - 10/25/2014 2110 EDT He can restart clopidigrel (Plavix) and follow-up with Dr Lewis in [place]. The biopsy is most consistent with diabetic [...] may reflect changes made after this encounter. CLOPIDOGREL BISULFATE (PLAVIX ORAL)Indications:R GERALDO VASQUEZ'D BY DR WILLIS Take by mouth added in this encounter Care Teams News Wire Photo Operator Relationship Specialty Start Date End Date Urbano Denis DO [address] [place] [address] PCP - General 09/27/14 documented as of this encounter
--- OUTSIDE RECORDS SUMMARY | 2024-05-16 17:14 | XMS_ITS | Encounter Summary ---
Author Organization [facility] Address [address] [place] [address] Care Team Providers Care Track Repair Supervisor Name Role Phone Urbano Denis DO Primary Care Provider +1- [phone] Reason for Visit * Reason Onset Date Comments Appointment Related 10/06/2014 biopsy Encounter Details Date Type Department Care Team ([facility] st Contact Info) Description 10/06/2014 Telephone [facility] Nephrology - [address] [phone] Radha Judge, RN [address] [place] [address] Appointment Related (biopsy) Social History Tobacco Use [...] 27 at [address] Lewis re: Pt Ptt and Plavix. PENDING documented in this encounter Plan of Treatment Not on file documented as of this encounter Visit Diagnoses Not on filedocumented in this encounter Care Teams Track Repair Supervisor Relationship Specialty Start Date End Date Urbano Denis DO [address] [place] [address] PCP - General 09/27/14 documented as of this encounter
--- OUTSIDE RECORDS SUMMARY | 2024-05-16 17:14 | XMS_ITS | Encounter Summary ---
Author Organization [facility] Address [address] [place] [address] Care Team Providers Care Title Searcher Name Role Phone Urbano Denis DO Primary Care Provider +1- [phone] Encounter Details Date Type Department Care Team (Late st Contact Info) Description 01/03/[address] [facility] Nephrology - [address] [place], [place] [phone] Que Lewis MD [address] [place] [phone] Social History Tobacco Use Types Packs/Day [...] Results * HGB (12/27/2014) Hemoglobin, External 12.3 [facility] Blood specimen (specimen) 12/27/2014 us Que Lewis MD HEMATOLOGY & PF4 ORDERABLE S Final Result [facility] * NEPHROLOGY PROFILE (INCLUDES BUN, CREATININE, CALCULATED GFR, ELECTROLYTES, CALCIUM, PHOSPHORUS, ALBUMIN) (12/27/2014) Phosphorus, External 5.3 [facility] Albumin, External 3.2 [facility] BUN, External 115 [facility] Chloride, External 104 [facility] Creatinine, External 5.4 [facility] Potassium, External 5.2 [facility] GFR, Calculated, External 10.68 [facility] Calculated Calcium, External [facility] Calcium, External 8.9 [facility] Sodium, External 141 [facility] CO2, External 26.6 [facility] Blood specimen (specimen) 12/27/2014 us Que Lewis MD PACKAGES & DNA PROBE ORDER IGNACIO Final Result [facility] * PTH INTACT (12/27/2014) PTH, External 130 [facility] Blood specimen (specimen) 12/27/2014 us Que Lewis MD CHEMISTRY & BLOOD GAS ORDE DICK Final Result Performing Organization Address City/[facility]/ZIP Co de Phone Number [facility] documented in this encounter Visit Diagnoses Not on filedocumented in this encounter Care Teams Title Searcher Relationship Specialty Start Date End Date Urbano Denis DO [address] [place] [address] PCP - General 09/27/14 documented as of this encounter
--- OUTSIDE RECORDS SUMMARY | 2024-05-16 17:14 | XMS_ITS | Encounter Summary ---
Author Organization [facility] Address [address] [place] [address] Care Team Providers Care Mortgage Analyst Name Role Phone Urbano Denis DO Primary Care Provider +1- [phone] Reason for Visit * Reason Onset Date Comments Labs Only 10/18/2014 Encounter Details Date Type Department Care Team ([facility] st Contact Info) Description 10/18/2014 Telephone [facility] Nephrology - [address] [phone] Ginny Flores, RN [address] [place], [place] [phone] Labs Only Social History Tobacco Use Types [...] Telephone Encounter - Brunilda Pinon - 10/19/2014 0971 EDT Caller reports that labs were not written correctly and when sent to [place], the labs were not able to be drawn. Caller reports that the pt needs the labs done today and the orders needs to be sent to [facility] in [place], fax number: [phone]. [address] new orders and fax over. Please confirm that this has been done. * Telephone Encounter - uQe Lewis MD - 10/18/2014 4642 EDT He will stop clonidine * Telephone Encounter - Ginny Flores RN - 10/18/2014 1346 EDT Spoke with . When patient discharged yesterday was told to have labs drawn 10/23, however, Dr. Adams would like labs done this week. He will have them done tomorrow in [facility]. Saw Dr. Geller, seismograph helper, today who wanted patient to check with [...] Results * HEMAGRAM (10/19/2014) HCT, External 37.1 [facility] MCH, External [facility] MCV, External [facility] MCHC, External [facility] Hemoglobin, External 12.1 [facility] WBC, External 8.78 [facility] RBC, External [facility] PLT, External 304 [facility] RDW-CV, External [facility] Blood specimen (specimen) 10/19/2014 us Historical Provider HEMATOLOGY & PF4 ORDERABL ES Final Result [facility] documented in this encounter Visit Diagnoses Diagnosis Chronic kidney disease, stage IV (severe) ([facility])- Primary Chronic kidney disease, Stage IV (severe) documented in this encounter Care Teams Mortgage Analyst Relationship Specialty Start Date End Date Urbano Denis DO [address] [place] [address] PCP - General 09/27/14 documented as of this encounter
--- OUTSIDE RECORDS SUMMARY | 2024-05-16 17:14 | XMS_ITS | Encounter Summary ---
Author Organization [facility] Address [address] [place] [address] Care Team Providers Care Utilities And Maintenance Supervisor Name Role Phone Adeel Urbano Kessler DO Primary Care Provider +1- [phone] Encounter Details Date Type Department Care Team (Late st Contact Info) Description 09/12/2015 Results Only [facility] [phone] Jennifer Momin, [address] [facility] ROCAEL DALY [address] [place] [address] Social History Tobacco Use Types Packs/Day [...] ? ETHEL AKINS ? Accession #: ? [id number] ? : ? 1950 (Age: 65) ??M ? Collect Date: ? 09/12/2015 ? Location: ? [facility] ? Receive Date: ? 09/12/2015 ? Provider: JENNIFER MOMIN DO Copy to: URBANO DENIS DO [...] Reyes 09/13/2015 8:20 AM End of Report [facility] 09/12/2015 17:2 7 EST 09/12/2015 17:27 EST us Jennifer Momin DO PATHOLOGY ORDERABLES Fi nal Result Performing Organization Address City/State/[facility] Co de Phone Number [facility] [address] [place] [address] documented in this encounter Visit Diagnoses Not on filedocumented in this encounter Care Teams Utilities And Maintenance Supervisor Relationship Specialty Start Date End Date Urbano Denis DO [address] [place] [address] PCP - General 09/27/14 documented as of this encounter
--- OUTSIDE RECORDS SUMMARY | 2024-05-16 17:15 | XMS_ITS | Encounter Summary ---
Author Organization [facility] [place] [address] Care Team Providers Care Gas Utility Worker Name Role Phone PerrydebUrbano DO Primary Care Provider [phone] Encounter Details Date Type Department Care Team (Late st Contact Info) Description 08/31/2023 Telephone Cardiology at [address] [phone] Giovanna Hernandez, RN Social History Tobacco Use Types Packs/Day Years Used Date Smoking Tobacco: Light Smoker Cigars Smokeless Tobacco: Never Comments:cigars, one weekly Alcohol Use Standard Drinks/Week Comments No 0 (1 standard drink = 0.6 oz pur e alcohol) [facility] Inpatient Questions Answer Date Recorded Does Anyone [...] 75 mg BID be sent to the [facility] in [place] and for the prescription to be Metoprolol Succinate 50 mg tabs one and one half tablets twice a day. stated in her vm left that they wanted 3 50 mg tabs daily to split one in half to make the dose. Will re-pend prescription to [facility] to please sign off and re-route this prescription to [facility] in [place] documented in this encounter Plan of Treatment Upcoming Encounters Date Type Department Care Team (Late st Contact Info) Description 06/22/2024 11:00 AM EST TH Visit (TeleHealth) Cardiology at [address] [address] Byron Brown MD [facility] [place] [place] [address] 07/14/2024 10:00 AM EST Hospital Encounter Non-[place] [address] Arrived documented as of this encounter Goals Goal Patient Goal Type Associated Problems Recent Progress Patient-Stated? Author [facility] Medication Compliance and Understanding Patient Facing Action Plan On track( 017 10:41 AM EDT) No Selena Cisneros, [facility] Note: Patient Goal: Clear hepatitis C Timeframe to meet goal: within 12 weeks of therapy documented as of this encounter Visit Diagnoses Not on filedocumented in this encounter Care Teams Gas Utility Worker Relationship Specialty Start Date End Date Urbano Jimenez DO [address] [place] [address] PCP - General Family Medicine 03/18/22 Ruchi Valles RN Nurse Clinic Transplant Surgery 07/30/15 documented as of this encounter
--- OUTSIDE RECORDS SUMMARY | 2024-05-16 17:15 | XMS_ITS | Encounter Summary ---
Author Organization [facility] [place] [address] Care Team Providers Care Sign Letterer Name Role Phone Urbano Jimenez DO Primary Care Provider [phone] Encounter Details Date Type Department Care Team (Late st Contact Info) Description 10/01/2023 Telephone [place] [phone] Marisela Metcalf, RN Social History Tobacco Use [...] Contact Info) Description 06/22/2024 11:00 AM EST Visit (TeleHealth) Cardiology at [address] [address] Byron Brown MD [facility] [place] [address] 07/14/2024 10:00 AM EST Hospital Encounter Non-[place] [address] Arrived documented as of this encounter Goals Goal Patient Goal Type Associated Problems Recent Progress Patient-Stated? Author [facility] Medication Compliance and Understanding Patient Facing Action Plan On track( 017 10:41 AM EDT) No Selena Cisneros [facility] Note: Patient Goal: Clear hepatitis C Timeframe to meet goal: within 12 weeks of therapy documented as of this encounter Visit Diagnoses Not on filedocumented in this encounter Care Teams Sign Letterer Relationship Specialty Start Date End Date Urbano Jimenez DO [address] [place] [address] PCP - General Family Medicine 03/18/22 Ruchi Valles RN Nurse Clinic Transplant Surgery 07/30/15 documented as of this encounter
--- OUTSIDE RECORDS SUMMARY | 2024-05-16 17:15 | XMS_ITS | Encounter Summary ---
[place] [address] Care Team Providers Care Acting Section Chief Name Role Phone Urbano Jimenez DO Primary Care Provider [phone] Encounter Details Date Type Department Care Team (Late st Contact Info) Description 04/07/2024 Telephone Solid [place] [phone] Barbara Josue Social History Tobacco Use Types Packs/Day Years Used Date Smoking Tobacco: Light Smoker Cigars Smokeless Tobacco: Never Comments:cigars, one weekly Alcohol Use Standard Drinks/Week Comments No 0 (1 standard drink = 0.6 oz pur e alcohol) [facility] Inpatient Questions Answer Date Recorded [...] * Telephone Encounter - Barbara Josue - 04/07/2024 11:36 AM EDT Mara called. Trying to get Mycophenolate through [facility] is not working and she told them to cancelit. Yash has 2 pills left. She would like a new prescription sent to [place], [place] Please be sure it is for a 3 month supply at a time. Thank you documented in this encounter Plan of Treatment Upcoming Encounters Date Type Department Care Team (Late st Contact Info) Description 06/22/2024 11:00 AM EST TH Visit (TeleHealth) Cardiology at [address] [phone] Byron Brown MD [facility] [place] [place] [address] 07/14/2024 10:00 AM EST Hospital Encounter Non-[place]vasive [place] [address] Arrived documented as of this encounter Goals [...] on filedocumented in this encounter Care Teams Acting Section Chief Relationship Specialty Start Date End Date Urbano Jimenez DO [address] [place] [address] PCP - General Family Medicine 03/18/22 Ruchi Valles RN Nurse Clinic Transplant Surgery 07/30/15 documented as of this encounter
--- OUTSIDE RECORDS SUMMARY | 2024-05-16 17:15 | XMS_ITS | Encounter Summary ---
[place] [address] Care Team Providers Care Guest Relations Executive Name Role Phone Urbano Jimenez Ray KIRBY Primary Care Provider [phone] Reason for Visit * Reason Onset Date Comments Medication Refill 04/04/2024 Encounter Details Date Type Department Care Team (Late st Contact Info) Description 04/04/2024 Refill [place] [phone] Marisela Metcalf RN H/O kidney transplant Social [...] AM EST TH Visit (TeleHealth) Cardiology at [address] [phone] Byron Brown MD [facility] [place] [address] 07/14/2024 10:00 AM EST Hospital Encounter Non-Invasive Cardiology Lab [facility] [place] [address] Arrived documented as of this encounter Goals [...] transplant documented in this encounter Care Teams Guest Relations Executive Relationship Specialty Start Date End Date Urbano Jimenez DO [address] [place], [place] [address] [place] [address] PCP - General Family Medicine 03/18/22 Ruchi Valles RN Nurse Clinic Transplant Surgery 07/30/15 documented as of this encounter
--- OUTSIDE RECORDS SUMMARY | 2024-05-16 17:15 | XMS_ITS | Encounter Summary ---
[facility] [place] [address] Care Team Providers Care Limehouse Worker Name Role Phone PerrydebUrbano DO Primary Care Provider [phone] Reason for Visit * Reason Comments Medication Refill Encounter Details Date Type Department Care Team (Late st Contact Info) Description 03/29/2024 Refill [place] [address] Gurdeep Boston APRN [facility] [place] [address] H/O kidney transplant Social History Tobacco Use Types Packs/Day Years Used Date Smoking Tobacco: Light Smoker Cigars Smokeless Tobacco: Never Comments:cigars, one weekly Alcohol Use Standard Drinks/Week Comments No 0 (1 standard drink = 0.6 oz pur e alcohol) [facility] Inpatient Questions Answer Date Recorded Does Anyone [...] AM EST TH Visit (TeleHealth) Cardiology at [address] [address] Byron Brown MD [facility] [address] 07/14/2024 10:00 AM [facility] Hospital Encounter Non-[place]vasive [place] [address] Arrived documented as of this [...] transplant documented in this encounter Care Teams Limehouse Worker Relationship Specialty Start Date End Date Urbano Jimenez DO [address] [place] [address] PCP - General Family Medicine 03/18/22 Ruchi Valles RN Nurse Clinic Transplant Surgery 07/30/15 documented as of this encounter
--- OUTSIDE RECORDS SUMMARY | 2024-05-16 17:15 | XMS_ITS | Encounter Summary ---
[place] [address] Care Team Providers Care Width Stripper Name Role Phone Urbano Jimenez DO Primary Care Provider [phone] Encounter Details Date Type Department Care Team (Late st Contact Info) Description 09/30/2023 Telephone [place] [phone] Barbara Josue Social History Tobacco Use Types [...] antibiotic. He's very tired. Recently was at [facility] for a couple of nights with diverticulitis. 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 Was given tramadol but hasn't had any for a couple of days. Her # [phone] documented in this encounter Plan of Treatment Upcoming Encounters Date Type Department Care Team (Late st Contact Info) Description 06/22/2024 11:00 AM EST Visit (TeleHealth) Cardiology at [address] [phone] Byron Brown MD [facility] [place] [address] 07/14/2024 10:00 AM EST Hospital Encounter Non[place] [address] Arrived documented as of this encounter Goals [...] on filedocumented in this encounter Care Teams Width Stripper Relationship Specialty Start Date End Date Urbano Jimenez DO [address] [place] [address] PCP - General Family Medicine 03/18/22 Ruchi Valles RN Nurse Clinic Transplant Surgery 07/30/15 documented as of this encounter
--- OUTSIDE RECORDS SUMMARY | 2024-05-16 17:15 | XMS_ITS | Encounter Summary ---
Author Organization [facility] [place] [address] Care Team Providers Care Liquid Fertilizer Servicer Name Role Phone Tony Urbano Bell DO Primary Care Provider [phone] Encounter Details Date Type Department Care Team (Late st Contact Info) Description 11/10/2023 Orders Only [place] [phone] Gurdeep Boston APRN [facility] [place] [address] Social History Tobacco Use Types Packs/Day Years Used Date Smoking Tobacco: Light Smoker Cigars Smokeless Tobacco: Never Comments:cigars, one weekly Alcohol Use Standard Drinks/Week Comments No 0 (1 standard drink = 0.6 oz pur e alcohol) [facility] Inpatient Questions Answer Date Recorded Does [...] AM EST TH Visit (TeleHealth) Cardiology at [address] [address] Byron Brown MD [facility] [place] [address] 07/14/2024 10:00 AM EST Hospital Encounter Non-Invasive Cardiology Lab [facility] [place] [address] Arrived documented as of this encounter Goals [...] on filedocumented in this encounter Care Teams Liquid Fertilizer Servicer Relationship Specialty Start Date End Date Urbano Jimenez DO [address] [place], [place] [address] [place] [place] [address] PCP - General Family Medicine 03/18/22 Ruchi Valles RN Nurse Clinic Transplant Surgery 07/30/15 documented as of this encounter
--- OUTSIDE RECORDS SUMMARY | 2024-05-16 17:15 | XMS_ITS | Encounter Summary ---
Author Organization [facility] [place] [address] Care Team Providers Care Masonry Instructor Name Role Phone Urbano Jimenez Ray KIRBY Primary Care Provider [phone] Encounter Details Date Type Department Care Team (Late st Contact Info) Description 02/16/2024 Telephone [place] [address] Mara Kimble Social History Tobacco Use Types Packs/Day Years Used Date Smoking Tobacco: Light Smoker Cigars Smokeless Tobacco: Never Comments:cigars, one weekly Alcohol Use Standard Drinks/Week Comments No 0 (1 standard drink = 0.6 oz pur e alcohol) [facility] Inpatient Questions Answer Date Recorded Does [...] AM EST TH Visit (TeleHealth) Cardiology at [address] [phone] Byron Brown MD [facility] [place] [address] 07/14/2024 10:00 AM EST Hospital Encounter Non-[place] [address] Arrived documented as of this [...] on filedocumented in this encounter Care Teams Masonry Instructor Relationship Specialty Start Date End Date Urbano Jimenez DO [address] [place] [address] PCP - General Family Medicine 03/18/22 Ruchi Valles RN Nurse Clinic Transplant Surgery 07/30/15 documented as of this encounter
--- OUTSIDE RECORDS SUMMARY | 2024-05-16 17:15 | XMS_ITS | Encounter Summary ---
Author Organization [facility] [place] [address] Care Team Providers Care Hospital Manager Name Role Phone Urbano Jimenez DO Primary Care Provider [phone] Encounter Details Date Type Department Care Team (Late st Contact Info) Description 02/16/2024 Telephone [place] [phone] Marisela Metcalf, RN Social History Tobacco Use Types Packs/Day Years Used Date Smoking Tobacco: Light Smoker Cigars Smokeless Tobacco: Never Comments:cigars, one weekly Alcohol Use Standard Drinks/Week Comments No 0 (1 standard drink = 0.6 oz pur e alcohol) [facility] Inpatient Questions Answer Date Recorded Does [...] Yash's recent ED visit. He went to [facility] about 1-2 months ago for back pain. PCP prescribed allopurinol for potential gout? He went back to the ED over the weekend due to continued back pain. He was prescribed lidocaine patches and methocarbamol. She called and spoke with Dr. Green over the weekend and was instructed notto chicken picker these prescriptions and to follow up [...] 11:00 AM EST Visit (TeleHealth) Cardiology at [address] [phone] Byron Brown MD [facility] [place] [address] 07/14/2024 10:00 AM [facility] Hospital Encounter Non-[place] [address] Arrived documented as of this encounter Goals [...] on filedocumented in this encounter Care Teams Hospital Manager Relationship Specialty Start Date End Date Urbano Jimenez DO [address] [place] [address] PCP - General Family Medicine 03/18/22 Ruchi Valles RN Nurse Clinic Transplant Surgery 07/30/15 documented as of this encounter
--- OUTSIDE RECORDS SUMMARY | 2024-05-16 17:15 | XMS_ITS | Encounter Summary ---
Author Organization [facility] [place] [address] Care Team Providers Care Cross Country Coach Name Role Phone Urbano Jimenez DO Primary Care Provider [phone] Encounter Details Date Type Department Care Team (Late st Contact Info) Description 11/10/2023 Telephone [place] [address] [facility] [place] [address] Social History Tobacco Use Types Packs/Day Years [...] AM EST TH Visit (TeleHealth) Cardiology at [address] [phone] [facility] [place] [place] [address] 07/14/2024 10:00 AM EST Hospital Encounter Non-Invasive [place] [address] Arrived documented as of this encounter Goals [...] on filedocumented in this encounter Care Teams Cross Country Coach Relationship Specialty Start Date End Date Urbano Jimenez DO [facility] [place] [address] [place] [address] PCP - General Family Medicine 03/18/22 Ruchi Valles RN Nurse Clinic Transplant Surgery 07/30/15 documented as of this encounter
--- OUTSIDE RECORDS SUMMARY | 2024-05-16 17:15 | XMS_ITS | Encounter Summary ---
Author Organization [place] [id number] Care Team Providers Care Group Exercise Class Instructor Name Role Phone Urbano Jimenez DO Primary Care Provider [phone] Reason for Referral * Diagnostic Test (Routine) - Pending Review Specialty Diagnoses / Procedures Referred By Humberto flor Referred To Contact Radiology Procedures Non External Radiology Exam [facility] [address] [place] [phone] Referral ID Status Reason Start Date Expiration Date Visits Requested Visits Authorized [id number] Pending Review Specialty Service Requested 01/14/2024 07/16/2025 1 1 * Diagnostic Test (Routine) - New Request Specialty Diagnoses / Procedures Referred By Humberto flor Referred To Contact Radiology Procedures Non External Radiology Exam [facility] [address] [place] [phone] Referral ID Status Reason Start Date Expiration Date Visits Requested Visits Authorized [id number] New Request Specialty Service Requested 01/14/2024 07/16/2025 1 1 Encounter Details Date Type Department Care Team (Late st Contact Info) Description 01/14/2024 External Results [place] [address] Social History Tobacco Use Types [...] EST TH Visit (TeleHealth) Cardiology at [address] [address] Byron Brown MD [facility] [place] [place] [address] 07/14/2024 10:00 AM EST Hospital Encounter Non-[place] [phone] Arrived documented as of this encounter Goals Goal Patient Goal Type Associated Problems Recent Progress Patient-Stated? Author [facility] Medication Compliance and Understanding Patient Facing Action Plan On track( 017 10:41 AM EDT) No Selena Cisneros, [facility] Note: Patient Goal: Clear hepatitis C Timeframe to meet goal: within 12 weeks of therapy documented as of this encounter Procedures Procedure Name Priority Date/Time Associated Diagnosis Comments NON EXTERNAL RADIOLOGY EXAM Routine 11/13/2023 2:17 PM EDT [facility] [place] [place] Routine 11/13/2023 2:03 PM EDT NON EXTERNAL RADIOLOGY EXAM Routine 09/23/2023 2:07 PM EDT documented in this encounter Results * Non External Radiology Exam (11/13/2023 2:17 PM EDT) Anatomical Region Laterality Modality Magnetic Resonan ce Historical Provider IMG MRI ORDERABLE S * [facility] [place] Panel (11/13/2023 2:03 PM EDT) Historical Provider POINT OF CARE BOBY T ORDERABLES * Non DH External Radiology Exam (09/23/2023 2:07 PM EDT) Anatomical Region Laterality Modality Magnetic Resonan ce Historical Provider IMDanielle MRI ORDERABLE S documented in this encounter Visit Diagnoses Not on filedocumented in this encounter Care Teams Group Exercise Class Instructor Relationship Specialty Start Date End Date Urbano Jimenez DO [address] [place] [address] PCP - General Family Medicine 03/18/22 Ruchi Valles RN Nurse Clinic Transplant Surgery 07/30/15 documented as of this encounter
--- OUTSIDE RECORDS SUMMARY | 2024-05-16 17:15 | XMS_ITS | Encounter Summary ---
[place] [address] Care Team Providers Care Surgery Consultant Name Role Phone Urbano Jimenez DO Primary Care Provider [phone] Encounter Details Date Type Department Care Team (Late st Contact Info) Description 04/04/2024 Telephone [place] [phone] Barbara Josue Social History Tobacco Use Types Packs/Day Years Used Date Smoking Tobacco: Light Smoker Cigars Smokeless Tobacco: Never Comments:cigars, one weekly Alcohol Use Standard Drinks/Week Comments No 0 (1 standard drink = 0.6 oz pur e alcohol) [facility] Inpatient Questions Answer Date Recorded [...] * Telephone Encounter - Barbara Josue - 04/04/2024 3:35 PM EDT Yash's Mara called. Yash is out of the following medications. She wants them sent to a DIFFERENT PHARMACY AND FOR A 90 DAY SUPPLY AT A TIME. Tacrolimus Mycophenolate [facility] - WILLIE Ledezma documented in this encounter Plan of Treatment Upcoming Encounters Date Type Department Care Team (Late st Contact Info) Description 06/22/2024 11:00 AM EST TH Visit (TeleHealth) Cardiology at [address] [phone] Byron Brown MD [facility] [place] [address] 07/14/2024 10:00 AM EST Hospital Encounter Non-Invasive [place] [address] Arrived documented as of [...] on filedocumented in this encounter Care Teams Surgery Consultant Relationship Specialty Start Date End Date Urbano Jimenez DO [address] [place] [address] PCP - General Family Medicine 03/18/22 Ruchi Valles RN Nurse Clinic Transplant Surgery 07/30/15 documented as of this encounter
--- OUTSIDE RECORDS SUMMARY | 2024-05-16 17:15 | XMS_ITS | Encounter Summary ---
Author Organization [facility] [place] [address] Care Team Providers Care Family Educator Name Role Phone Urbano Jimenez Ray KIRBY Primary Care Provider [phone] Encounter Details Date Type Department Care Team (Late st Contact Info) Description 04/22/2024 [place] [address] Destin Hanks MD [facility] [place] [address] Social History Tobacco Use Types Packs/Day Years [...] encounter Miscellaneous Notes * Telephone Encounter - Destin Hanks MD - 04/22/2024 4:47 PM EDT Spoke to patient and regarding patients symptoms. He is more tired and I could not pin down whether it was new or something old. I explained that it is difficult determining if this is due to his afib/flutter and they were more concerned that it was due to his lower rates as Dr. Urban decreased lower rate from 60 --> 50. We asked patient to send a remote transmission and there were essentially no changes and he is pacing about the same as he was previously (30% in the V compared to 40% as well as almost 0% pacing in the A due to his atrial arrhythmias). Explained that this is nonspecific and the most we could do for his afib/flutter would be a DAVEY/cardioversion and we would need to be anticoagulated for 30 days after (even with his LAAO) and the risks of this likely outweigh the benefits given his prior head bleed. They are going to watch his symptoms for now. Destni Hanks, PGY-7 Electrophysiology Fellow [id number] documented in this encounter Plan of Treatment Upcoming Encounters Date Type Department Care Team (Late st Contact Info) Description 06/22/2024 11:00 AM EST TH Visit (TeleHealth) Cardiology at [address] [address] Byron Brown MD [facility] [place] [address] 07/14/2024 10:00 AM EST Hospital Encounter Non-[place] [address] Arrived documented as of this encounter Goals [...] on filedocumented in this encounter Care Teams Family Educator Relationship Specialty Start Date End Date Urbano Jimenez DO [address] [place] [address] PCP - General Family Medicine 03/18/22 Ruchi Valles RN Nurse Clinic Transplant Surgery 07/30/15 documented as of this encounter
--- OUTSIDE RECORDS SUMMARY | 2024-05-16 17:15 | XMS_ITS | Encounter Summary ---
Author Organization [facility] [place] [address] Care Team Providers Care Spool Cleaner Hand Name Role Phone Urbano Jimenez DO Primary Care Provider [phone] Encounter Details Date Type Department Care Team (Late st Contact Info) Description 01/06/2024 Telephone [place] [phone] Barbara Josue Social History Tobacco Use Types Packs/Day Years Used Date Smoking Tobacco: Light Smoker Cigars Smokeless Tobacco: Never Comments:cigars, one weekly Alcohol Use Standard Drinks/Week Comments No 0 (1 standard drink = 0.6 oz pur e alcohol) [facility] Inpatient Questions Answer Date Recorded Does Anyone [...] 11:00 AM EST Visit (TeleHealth) Cardiology at [address] [phone] Byron Brown MD [facility] [place] [place] [address] 07/14/2024 10:00 AM EST Hospital Encounter Non-[place]vasive [place] [address] Arrived documented as of this encounter Goals Goal Patient Goal Type Associated Problems Recent Progress Patient-Stated? Author [facility] Medication Compliance and Understanding Patient Facing Action Plan On track( 017 10:41 AM EDT) No Selena Cisneros, [facility] Note: Patient Goal: Clear hepatitis C Timeframe to meet goal: within 12 weeks of therapy documented as of this encounter Visit Diagnoses Not on filedocumented in this encounter Care Teams Spool Cleaner Hand Relationship Specialty Start Date End Date Urbano Jimenez DO [address] [place] [address] PCP - General Family Medicine 03/18/22 Ruchi Valles RN Nurse Clinic Transplant Surgery 07/30/15 documented as of this encounter
--- OUTSIDE RECORDS SUMMARY | 2024-05-16 17:15 | XMS_ITS | Encounter Summary ---
Author Organization [facility] Address [facility] [place] [address] Care Team Providers Care Clinical Systems Analyst Name Role Phone Urbano Jimenez Ray KIRBY Primary Care Provider [phone] Reason for Visit * Reason Onset Date Comments Medication Refill 07/08/2023 Encounter Details Date Type Department Care Team (Late st Contact Info) Description 07/08/2023 Refill Cardiology at [address] [address] Byron Brown MD [facility] [place] [address] Medication Refill Social History Tobacco Use Types Packs/Day Years Used Date Smoking Tobacco: Light Smoker Cigars Smokeless Tobacco: Never Comments:cigars, one weekly Alcohol Use Standard Drinks/Week Comments No 0 (1 standard drink = 0.6 oz pur e alcohol) [facility] Inpatient Questions Answer Date [...] or prn Next f/u: 10/22/23 Monica Roberson gluing machine operator Clinic at [facility] [address] documented in this encounter Plan of Treatment Upcoming Encounters Date Type Department Care Team (Late st Contact Info) Description 06/22/2024 11:00 AM EST TH Visit (TeleHealth) Cardiology at [address] [address] Byron Brown MD [facility] [place] [address] 07/14/2024 10:00 AM EST Hospital Encounter Non-[place]vasive [place] [address] Arrived documented as of this [...] fibrillation documented in this encounter Care Teams Clinical Systems Analyst Relationship Specialty Start Date End Date Urbano Jimenez DO [address] [place] [address] PCP - General Family Medicine 03/18/22 Ruchi Valles RN Nurse Clinic Transplant Surgery 07/30/15 documented as of this encounter
--- OUTSIDE RECORDS SUMMARY | 2024-05-16 17:15 | XMS_ITS | Encounter Summary ---
Author Organization [facility] [place] [address] Care Team Providers Care Receivables Specialist Name Role Phone Urbano Jimenez DO Primary Care Provider [phone] Encounter Details Date Type Department Care Team (Late st Contact Info) Description 06/17/2023 Telephone [place] [address] Breezy Dale MD [facility] [place] [address] Social History Tobacco Use Types Packs/Day Years [...] AM EST TH Visit (TeleHealth) Cardiology at [address] [phone] Byron Brown MD [facility] [place] [address] 07/14/2024 10:00 AM EST Hospital Encounter Non-Invasive [place] [address] Arrived documented as of this encounter Goals Goal Patient Goal Type Associated Problems Recent Progress Patient-Stated? Author [facility] Medication Compliance and Understanding Patient Facing Action Plan On track( 017 10:41 AM EDT) No Selena Cisneros, [facility] Note: Patient Goal: Clear hepatitis C Timeframe to meet goal: within 12 weeks of therapy documented as of this encounter Visit Diagnoses Not on filedocumented in this encounter Care Teams Receivables Specialist Relationship Specialty Start Date End Date Urbano Jimenez DO [address] [place] [address] PCP - General Family Medicine 03/18/22 Ruchi Valles RN Nurse Clinic Transplant Surgery 07/30/15 documented as of this encounter
--- OUTSIDE RECORDS SUMMARY | 2024-05-16 17:15 | XMS_ITS | Encounter Summary ---
[place] [address] Care Team Providers Care Caterpillar Tractor Operator Name Role Phone Urbano Jimenez DO Primary Care Provider [phone] Encounter Details Date Type Department Care Team (Latest Contact Info) Description 04/15/2024 10:00 AM EDT - 04/15/2024 11:59 PM EDT Hospital Encounter Non[place] [address] Discharge Disposition: Home Social History Tobacco Use Types Packs/Day Years Used Date Smoking Tobacco: Light Smoker Cigars Smokeless Tobacco: Never Comments:cigars, one weekly Alcohol Use Standard Drinks/Week Comments No 0 (1 standard drink = 0.6 oz pur e alcohol) [facility] Inpatient Questions Answer Date [...] Sig Dispensed Refills Start Date End Date Saxagliptin (Onglyza) 5 mg tablet Take 1 tablet by mouth Daily at Noon. 04/01/2024 mycophenolate (Cellcept) 250 mg capsuleIndications:H/O kidney transplant Take 1 capsule by mouth 2 times daily. 180 capsule 1 04/07/2024 tacrolimus (Prograf) 1 mg IR capsuleIndications:H/O kidney transplant Take 1 capsule by mouth 2 times daily. 180 capsule 1 04/04/2024 calciTRIoL (Rocaltrol) 0.5 mcg capsuleIndications:H/O kidney transplant,Other complication of kidney transplant Take 1 capsule by mouth daily. 90 capsule 3 12/02/2023 aspirin 81 mg chewable tablet Take 81 mg by mouth daily. metoprolol succinate XL (Toprol-XL) [...] Tablet Take 137 mcg by mouth daily. metFORMIN (Glucophage) 500 mg tablet Take 500 mg by mouth 2 times daily (with meals). empagliflozin (Jardiance) 10 mg tabletIndications:Type 2 diabetes mellitus with complication, without long-term current use of insulin Take 1 tablet by mouth daily. 90 tablet 3 09/16/2023 documented as of this encounter Plan of Treatment Upcoming Encounters Date Type Department Care Team (Late st Contact Info) Description 06/22/2024 11:00 AM EST Visit (TeleHealth) Cardiology at [address] [phone] Byron Brown MD [facility] [place] [address] 07/14/2024 10:00 AM EST Hospital Encounter Non-[place] [address] Arrived documented as of this encounter Goals [...] INTERROGATION REMOTE UP TO 90 DAYS Routine 03/22/2024 1:42 PM EDT documented in this encounter Results * Cardiac Device Check - Remote (03/22/2024 1:42 PM EDT) Anatomical Region Laterality Modality Other 03/22/2024 1:42 PM EDT Ryley Vargas MD IMPLANTABLE CARDIAC DEVICE documented in this encounter Visit Diagnoses Not on filedocumented in this encounter Care Teams Caterpillar Tractor Operator Relationship Specialty Start Date End Date Urbano Jimenez DO [address] [place] [address] PCP - General Family Medicine 03/18/22 Ruchi Valles RN Nurse Clinic Transplant Surgery 07/30/15 documented as of this encounter
--- OUTSIDE RECORDS SUMMARY | 2024-05-16 17:15 | XMS_ITS | Encounter Summary ---
Author Organization [facility] [place] [address] Care Team Providers Care Early Childhood Education Instructor Name Role Phone Urbano Jimenez Ray KIRBY Primary Care Provider [phone] Encounter Details Date Type Department Care Team (Late st Contact Info) Description 08/28/2023 External Results [place] [address] Social History Tobacco Use Types Packs/Day Years Used Date Smoking Tobacco: Light Smoker Cigars Smokeless Tobacco: Never Comments:cigars, one weekly Alcohol Use Standard Drinks/Week Comments No 0 (1 standard drink = 0.6 oz pur e alcohol) [facility] Inpatient Questions Answer Date Recorded [...] AM EST TH Visit (TeleHealth) Cardiology at [address] [phone] Byron Brown MD [facility] [place] [address] 07/14/2024 10:00 AM EST Hospital Encounter Non-Invasive [place] [address] Arrived documented as of this encounter Goals [...] Procedure Name Priority Date/Time Associated Diagnosis Comments [facility] EXTERNAL LAB PANEL Routine 08/20/2023 1:05 PM EST documented in this encounter Results * [facility] External Lab Panel (08/20/2023 1:05 PM EST) Historical Provider POINT OF CARE BOBY T ORDERABLES documented in this encounter Visit Diagnoses Not on filedocumented in this encounter Care Teams Early Childhood Education Instructor Relationship Specialty Start Date End Date Urbano Jimenez DO [address] [place] [address] PCP - General Family Medicine 03/18/22 Ruchi Valles RN Nurse Clinic Transplant Surgery 07/30/15 documented as of this encounter
--- OUTSIDE RECORDS SUMMARY | 2024-05-16 17:15 | XMS_ITS | Encounter Summary ---
Author Organization [facility] Address [facility] [place] [address] Care Team Providers Care Home School Teacher Name Role Phone Tony Urbano Bell DO Primary Care Provider [phone] Reason for Visit * Reason Onset Date Comments Medication Refill 08/13/2023 Encounter Details Date Type Department Care Team (Late st Contact Info) Description 08/13/2023 Refill [place] [address] Gurdeep Boston, ORTHODONTIST SMALL BUSINESS OWNER [facility] [place] [address] H/O kidney transplant Social History Tobacco Use [...] AM EST TH Visit (TeleHealth) Cardiology at [address] [address] Byron Brown MD [facility] [place] [address] 07/14/2024 10:00 AM EST Hospital Encounter Non[place] [address] Arrived documented as of this [...] transplant documented in this encounter Care Teams Home School Teacher Relationship Specialty Start Date End Date Urbano Jimenez DO [address] [place] [address] PCP - General Family Medicine 03/18/22 Ruchi Valles RN Nurse Clinic Transplant Surgery 07/30/15 documented as of this encounter
--- OUTSIDE RECORDS SUMMARY | 2024-05-16 17:15 | XMS_ITS | Encounter Summary ---
Author Organization [facility] [place] [address] Care Team Providers Care Tree Worker Name Role Phone PerrydebUrbano DO Primary Care Provider [phone] Encounter Details Date Type Department Care Team (Latest Contact Info) Description 04/08/2024 Travel Social History Tobacco Use Types Packs/Day Years Used Date Smoking Tobacco: Light Smoker Cigars Smokeless Tobacco: Never Comments:cigars, one weekly Alcohol Use Standard Drinks/Week Comments No 0 (1 standard drink = 0.6 oz pur e alcohol) [facility] Inpatient Questions Answer Date Recorded Does Anyone [...] AM EST Visit (TeleHealth) Cardiology at [address] [address] Byron Brown MD [facility] [place] [address] 07/14/2024 10:00 AM EST Hospital Encounter Non-[place] [address] Arrived documented as of this encounter Goals [...] filedocumented in this encounter Care Teams Tree Worker Relationship Specialty Start Date End Date Urbano Jimenez DO [address] [place] [address] PCP - General Family Medicine 03/18/22 Ruchi Valles RN Nurse Clinic Transplant Surgery 07/30/15 documented as of this encounter
--- OUTSIDE RECORDS SUMMARY | 2024-05-16 17:15 | XMS_ITS | Encounter Summary ---
Author Organization [place] [address] Care Team Providers Care Forensic Accountant Name Role Phone PerrydebUrbano DO Primary Care Provider [phone] Reason for Visit * Reason Comments Medication Refill Encounter Details Date Type Department Care Team (Late st Contact Info) Description 12/02/2023 Refill [place] [address] Gurdeep Boston APRN [facility] [place] [address] H/O kidney transplant; Other complication of kidney transplant Social History Tobacco Use Types Packs/Day Years Used Date Smoking Tobacco: Light Smoker Cigars Smokeless Tobacco: Never Comments:cigars, one weekly Alcohol Use Standard Drinks/Week Comments No 0 (1 standard drink = 0.6 oz pur e alcohol) [facility] Inpatient Questions Answer Date Recorded [...] AM EST TH Visit (TeleHealth) Cardiology at [address] [address] Byron Brown MD [facility] [place] [address] 07/14/2024 10:00 AM EST Hospital Encounter Non-[place] [address] Arrived documented as of this encounter Goals [...] transplant documented in this encounter Care Teams Forensic Accountant Relationship Specialty Start Date End Date Urbano Jimenez DO [address] [place] [address] PCP - General Family Medicine 03/18/22 Ruchi Valles RN Nurse Clinic Transplant Surgery 07/30/15 documented as of this encounter
--- OUTSIDE RECORDS SUMMARY | 2024-05-16 17:15 | XMS_ITS | Encounter Summary ---
Author Organization [facility] Address [facility] Joel [facility] [place] [address] Care Team Providers Care Monologist Name Role Phone Urbano Jimenez DO Primary Care Provider [phone] Encounter Details Date Type Department Care Team (Latest Contact Info) Description 09/16/2023 10:40 AM EDT Office Visit [place] [address] Tal Eagle MD [facility] [place] [address] Type 2 diabetes mellitus with complication, without [...] drink = 0.6 oz pur e alcohol) [facility] Inpatient Questions Answer Date Recorded Does [...] from 50 BID to 75 BID by Rider Ticket Worker overlooking his Pacemaker. He was started saxagliptin [...] (chronic active hepatitis) 08/25/2016 Prophylactic immunotherapy 09/22/2016 long-term current use of immunosuppressive drug 09/22/2016 Vitamin [...] 0.17) performed by Joseph Ang MD at [facility] MAIN OR PRG DAVEY REAL TIME IMG 2D W PRB IMG ACQUIS I&R N/A 07/15/2022 TRANSESOPHAGEAL ECHOCARDIOGRAM (WRVU 2.55) performed by Ruchi Park MD at [facility] OR PRO ANASTOMOSIS, AV, ANY SITE Left 05/09/2015 AV FISTULA CREATION, DIRECT HEMODIALYSIS, ANY SITE, EG ASHWINI FISTULA UPPER EXTREMITY performed by Que Amaro MD at [facility] MAIN OR PRO ARTHROPLASTY KNEE CONDYLE & PLATEAU MEDIAL & LAT COMPARTMENTS Right 11/25/2017 TOTAL KNEE ARTHROPLASTY (WRVU 20.72) performed by Breezy Dale MD at [facility] OR PRO CYSTOURETHROSCOPY, URETER CATHETER Left 06/17/2018 CYSTO, RETROGRADE, URETEROPYELOGRAPHY (WRVU 2.37) performed by Edinson Grider III, [facility] PRO LAMINEC/FACETECT/FORAMIN, LUMBAR 1 SEG N/A 05/10/2020 LAMINECTOMY, FACETECTOMY & FORAMINOTOMY,LUMBAR, ONE LEVEL (WRVU 15.37) performed by Joseph Ang MD at [facility] OR PRO LAMINOTOMY, LUMBAR DISK, 1 INTRSP N/A 05/10/2020 LAMINOTOMY, DECOMPRESSION, FORAMINOTOMY, LUMBAR (WRVU 13.18) performed by Joseph Ang MD at [facility] OR [facility] MICROSURG TECHNIQUES, REQ OPER MICROSCOPE N/A 05/10/2020 MICROSCOPE USE (WRVU 3.46) performed by Joseph Ang MD at [facility] OR PRO PERQ CLSR TCAT L ATR APNDGE W/ENDOCARDIAL IMPLNT N/A 05/08/2022 @PERQ TRANSCATH CLOSURE LEFT ATRIAL APPENDAGE W ENDOCARDIAL IMPLANT, INC RAD S&I (WRVU 14) performed by Tal Diana MD at [facility] CATH LABS PRO REIMPLANT URETER, SINGLE URETER Left 05/20/2016 @URETERONEOCYSTOSTOMY ANASTOMOSIS OF SINGLE URETER TO BLADDER performed by Santosh Arredondo MD at [facility] MAIN OR PRO REIMPLANT URETER, SINGLE URETER N/A 05/20/2016 @URETERONEOCYSTOSTOMY ANASTOMOSIS OF SINGLE URETER TO BLADDER performed by Que Amaro MD at [facility] MAIN OR PRO TRANSPLANT, PREP CADAVER RENAL GRAFT N/A 09/16/2015 @PREPARATION CADAVERIC RENAL ALLOGRAFT performed by Franko Larkin MD at [facility] MAIN OR PRO TRANSPLANTATION OF KIDNEY N/A 09/16/2015 @KIDNEY TRANSPLANT, WITHOUT RECIPIENT NEPHRECTOMY performed by Franko Larkin MD at [facility] MAIN OR TISSUE TRANSFER kidney US RENAL TRANSPLANT LEFT Left 01/31/2019 US Renal Transplant Left 01/31/2019 [facility] RAD ULTRASOUND US RENAL TRANSPLANT LEFT Left 02/07/2019 US Renal Transplant Left 02/07/2019 [facility] RAD ULTRASOUND Current Outpatient Medications: aspirin [...] Unspecified Formulation 04/24/2022 Moderna Covid-19 Monovalent 12Yr+ (Industrial Relations Manager 100mcg) 09/05/2020, 10/03/2020, 05/11/2021 Pfizer Covid-19 (Purple [...] for diabetics, every 5 for non diabetics [place] kidney ultrasound looking for renal cell CA, [...] 10/10/2022 RDWCV 13.4 10/10/2022 Labs done at [facility] on 08/27/23 scanned into the media [...] around 7% K wnl #PO4/Mg Magnesium gluconate [id number] TID #Lipid panel Elevated TG related most [...] liver enzymes in past TB then 2.5 [id number] labs f/u 12 months Discussion with the patient and/or family concerned the following: ? Diagnostic results or recommended studies ? Prognosis; ? Risks and benefits of management; ? Instructions for management; ? Compliance with treatment; ? Risk factor reduction; ? Patient and family education. Total time 25 of 30 min in direct face to face educational guidance counselor. This case was staffed with Tal Ayala Nephrology and HTN Fellow I reviewed all of the above findings and assessment of Dr. Kilpatrick edited the above note to reflect my assessment and examination and formulated the recommendations which accurately reflect mine. 25 of 30 min in direct face to face educational guidance counselor. documented in this encounter Plan of Treatment Upcoming Encounters Date Type Department Care Team (Late st Contact Info) Description 06/22/2024 11:00 AM EST TH Visit (TeleHealth) Cardiology at [address] [address] Byron Brown MD [facility] [place] [address] 07/14/2024 10:00 AM EST Hospital Encounter Non-Invasive [place] [address] Arrived documented as of this encounter Goals [...] obstruction documented in this encounter Care Teams Monologist Relationship Specialty Start Date End Date Urbano Jimenez DO [address] [place] [address] PCP - General Family Medicine 03/18/22 Hai STALNEY,Ruchi Nurse Clinic Transplant Surgery 07/30/15 documented as of this encounter
--- OUTSIDE RECORDS SUMMARY | 2024-05-16 17:15 | XMS_ITS | Encounter Summary ---
Author Organization [facility] [place] [address] Care Team Providers Care Audit Intern Name Role Phone Urbano Jimenez Ray KIRBY Primary Care Provider [phone] Encounter Details Date Type Department Care Team (Late st Contact Info) Description 11/09/2023 Telephone Solid [place] [address] Mara Kimble Social History Tobacco Use Types Packs/Day Years Used Date Smoking Tobacco: Light Smoker Cigars Smokeless Tobacco: Never Comments:cigars, one weekly Alcohol Use Standard Drinks/Week Comments No 0 (1 standard drink = 0.6 oz pur e alcohol) [facility] Inpatient Questions Answer Date Recorded [...] EST TH Visit (TeleHealth) Cardiology at [address] [phone] Byron Brown MD [facility] [place] [address] 07/14/2024 10:00 AM EST Hospital Encounter Non-[place] [address] Arrived documented as of this [...] on filedocumented in this encounter Care Teams Audit Intern Relationship Specialty Start Date End Date Urbano Jimenez DO [address] [place] [address] PCP - General Family Medicine 03/18/22 Ruchi Valles RN Nurse Clinic Transplant Surgery 07/30/15 documented as of this encounter
--- OUTSIDE RECORDS SUMMARY | 2024-05-16 17:15 | XMS_ITS | Encounter Summary ---
Author Organization [facility] Address [facility] [place] [address] Care Team Providers Care Operations Controller Name Role Phone Urbano Jimenez Ray KIRBY Primary Care Provider [phone] Encounter Details Date Type Department Care Team (Late st Contact Info) Description 09/23/2023 5:00 PM EDT Ancillary Procedure Radiology Library at [facility] [place] [address] Tal Eagle MD [facility] [address] Social History Tobacco Use Types Packs/Day Years Used Date Smoking Tobacco: Light Smoker Cigars Smokeless Tobacco: Never Comments:cigars, one weekly Alcohol Use Standard Drinks/Week Comments No 0 (1 standard drink = 0.6 oz pur e alcohol) [facility] Inpatient Questions Answer Date Recorded Does Anyone [...] AM EST TH Visit (TeleHealth) Cardiology at [facility] [address] [place] [address] Byron Brown MD [facility] [place] [address] 07/14/2024 10:00 AM [email or web address] Hospital Encounter Non-Invasive Cardiology Lab [facility] [place] [address] Arrived documented as of this encounter Goals [...] IMG FILM LIBRARY ORDERABLES Performing Organization Address City/State/[facility] Co de Phone Number [place], [place] documented in this encounter Visit Diagnoses Not on filedocumented in this encounter Care Teams Operations Controller Relationship Specialty Start Date End Date Urbano Jimenez DO [address] [place] [address] PCP - General Family Medicine 03/18/22 Ruchi Valles RN Nurse Clinic Transplant Surgery 07/30/15 documented as of this encounter
--- OUTSIDE RECORDS SUMMARY | 2024-05-16 17:15 | XMS_ITS | Encounter Summary ---
[place] [address] Care Team Providers Care Tankroom Tender Name Role Phone Urbano Jimenez DO Primary Care Provider [phone] Reason for Referral * Diagnostic Test (Routine) - New Request Specialty Diagnoses / Procedures Referred By Contac t Referred To Contact Cardiology Diagnoses Cardiomyopathy, unspecified type Pacemaker Atrial flutter by electrocardiogram Procedures Echocardiogram Transthoracic Jay Urban MD [facility] [place] [address] [facility] [place] [address] Referral ID Status Reason Start Date Expiration Date Visits Requested Visits Authorized [id number] New Request Specialty Service Requested 4 04/19/2025 1 1 Encounter Details Date Type Department Care Team (Late st Contact Info) Description 04/08/2024 11:40 AM EDT Office Visit Cardiology at [address] [address] Jay Urban MD [facility] [place] [address] Persistent atrial fibrillation; Cardiomyopathy, unspecified type; Pacemaker; Atrial fibrillation with RVR - had flutter initially, then fib; Atrial flutter by electrocardiogram; History of left atrial appendage closure Social History Tobacco Use Types Packs/Day Years [...] Sign Reading Time Taken Comments Blood Pressure 128/69 04/08/2024 11:40 AM EDT Pulse 61 04/08/2024 11:40 AM EDT Temperature - - Respiratory Rate - - Oxygen Saturation 97% 04/08/2024 11:40 AM EDT Inhaled Oxygen Concentration - - Weight 101.6 kg (224 lb) 04/08/2024 11:40 AM EDT Height 180.3 cm (5' 11) 04/08/2024 11:40 AM EDT Body Mass Index 31.24 04/08/2024 11:40 AM EDT documented in this encounter Progress Notes * Jay Urban MD - 04/08/2024 11:40 AM EDT Images from the original note were not included. 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 He also is s/p Watchman LAAC. He is NOT currently anticoagulated (on ASA only) . He has a h/o basal ganglia hemorrhage. Comorbidities include HTN and DM2. He is s/p renal transplant on immunosuppressive therapy. Generally rate controlled. Somewhat unclear attributable symptoms. Pacemaker interrogation suggestspersistent AF since End of January / early February of this year (see graphs below) Patient Active Problem List Diagnosis Code Hypertension I10 DJD (degenerative joint disease) M19.90 Hematuria R31.9 CGN (chronic glomerulonephritis) N03.9 Hepatitis C virus infection B19.20 Other complication of kidney transplant T86.19 Enterococcal bacteremia R78.81, B95.2 Ureteral stricture N13.5 Dehydration E86.0 H/O kidney transplant Z94.0 Aftercare following organ transplant Z48.298 Type 2 diabetes mellitus with complication, without long-term current use of insulin E11.8 CAH (chronic active hepatitis) K73.2 Prophylactic immunotherapy Z29.89 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 immunosuppressive drug Z79.899 Vitamin D deficiency E55.9 Debility R53.81 Pain of right lower extremity M79.604 Obesity (BMI 30.0-34.9) E66.811 Hydronephrosis N13.30 Atrial fibrillation with RVR - had flutter initially, then fib I48.91 Left leg pain M79.605 CAD (coronary artery disease) I25.10 Herniated lumbar intervertebral disc M51.26 Tobacco abuse counseling Z71.6 Postprandial RUQ pain R10.11 Gall stones K80.20 Tachy-sakina syndrome I49.5 Pacemaker Z95.0 Aortic stenosis, mild I35.0 Mitral regurgitation I34.0 Atrial fibrillation I48.91 Diverticulitis K57.92 Hypertriglyceridemia E78.1 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 Outpatient Medications Marked as Taking for the 04/08/24 encounter (Office Visit) with Jay Urban MD Medication Sig Dispense Refill Saxagliptin (Onglyza) 5 mg tablet Take 1 tablet by mouth Daily at Noon. mycophenolate (Cellcept) 250 mg capsule Take 1 capsule by mouth 2 times daily. 180 capsule 1 tacrolimus (Prograf) 1 mg IR capsule Take 1 capsule by mouth 2 times daily. 180 capsule 1 calciTRIoL (Rocaltrol) 0.5 mcg capsule Take 1 capsule by mouth daily. 90 capsule 3 aspirin 81 mg chewable tablet Take 81 mg by mouth daily. metoprolol succinate XL (Toprol-XL) 50 mg ER 24 hr tablet Take 1.5 tablets by mouth 2 times daily. 270 tablet 1 Magnesium Gluconate (Mag-G) 27 mg magnesium (500 mg) Tablet Take 2 tablets by mouth every morning AND 1 tablet Daily at Noon AND 2 tablets every evening. 450 tablet 1 atorvastatin (Lipitor) 40 mg tablet TAKE ONE TABLET BY MOUTH EVERY EVENING 90 tablet 3 hydrALAZINE (Apresoline) 100 mg tablet Take 1 tablet by mouth 2 times daily. 180 tablet 3 amLODIPine (Norvasc) 5 mg Tablet Take 1 tablet by mouth daily. (Patient taking differently: Take 5 mg by mouth nightly.) 90 tablet 3 ascorbic acid, Vitamin C, (Vitamin C) 500 mg Tablet Take 1 tablet by mouth 3 times daily. 270 tablet 2 multivitamin with minerals and lutein Tablet Take 2 tablets by mouth daily. (Patient taking differently: Take 1 tablet by mouth 2 times daily.) 180 tablet 2 glipiZIDE XL (Glucotrol XL) 10 mg Tablet Extended Rel 24 hr Take 10 mg by mouth 2 times daily. nitroGLYcerin (NITROSTAT) 0.4 mg Tablet, Sublingual Place 1 tablet under the tongue every 5 minutesas needed for Chest pain. 90 tablet 12 tamsulosin (FLOMAX) 0.4 mg Capsule Take 0.4 mg by mouth daily. acetaminophen (TYLENOL) 500 mg Tablet Take 1,000 mg by mouth every 8 hours as needed for Pain. levothyroxine (SYNTHROID) 137 mcg Tablet Take 137 mcg by mouth daily. Allergies Allergen Reactions Cosmos Exam: BP 128/69 Pulse 61 Ht 180.3 cm (5' 11) Wt 101.6 kg (224 lb) SpO2 97% BMI 31.24 kg/m?? A&O x 3 Lungs clear to auscultation bilaterally Heart rather regular at this time Extr tr edema ECG today more consistent with atrial flutter (unclear whether typical ) with variable AV conduction with both conducted and V-paced beats. Echo 10/2022: Interpretation Summary 1. Left ventricular function is [...] echo 02/19/2022, LV function visually appears similar. Assessment: Rate controlled persistent AF. H/o basal ganglia bleed, LAAO closure. Recommend: given that he is not much if at all symptomatic from atrial fibrillation, and that current consensus favors anticoagulation x 30 days even in presence of BATOOL closure when cardioverting persistent AF, and he seems to have a pretty strong contraindication to this (h/o basal ganglia bleed) I provided my opinion that it would likely be safer to pursue a rate controlling strategy over rhythm control. Inasmuch as his [place] QRS is relatively narrow (<120 ms), his pacemaker can be used longitudinally to modulate his metoprolol to favor rate controlled (at rest, w/ chronotropic competence) intrinsic conduction, so as to minimize both risk of tachycardia-related and rapid ventricular pacing-related cardiomyopathy. I lowered his programmed LRL from 60 to 55 BPM to that end. F/u via remote monitoring. A follow-up echo is not unreasonable for ~ 3 months from now - I've taken the liberty of ordering. Thank-you for the opportunity of participating in this patient's cardiac electrophysiologic care along with you. Jay Urban MD, PhD, [facility] Cardiac Electrophysiology documented in this encounter Plan of Treatment Upcoming Encounters Date Type Department Care Team (Late st Contact Info) Description 06/22/2024 11:00 AM EST Visit (TeleHealth) Cardiology at [address] [phone] Shaq Brown MD [facility] [place] [address] 07/14/2024 10:00 AM EST Hospital Encounter Non[place] [phone] Arrived Scheduled Orders Name Type Priority Associated Diagnoses Orde r Schedule EKG 12 Lead ECG Routine Persistent atrial fibrillation Expected: 04/08/2024, Expires: 10/08/2024 Echocardiogram Transthoracic Echocardiography Routine Cardiomyopathy, unspecified type Pacemaker Atrial flutter by electrocardiogram Expected: 06/22/2024, Expires: 10/18/2024 documented as of this encounter Goals Goal [...] Date/Time Associated Diagnosis Comments EKG 12-LEAD Routine 04/08/2024 12:26 PM EDT documented in this encounter Results * EKG 12 Lead (04/08/2024 12:26 PM EDT) Ventricular rate 59 BPM MUSE SYSTEM QRS Duration 126 ms MUSE SYSTEM Q-T Interval 410 ms MUSE SYSTEM QTC Calculated (Bezet) 405 ms MUSE SYSTEM Calculated R Industry -63 degrees MUSE SYSTEM Calculated T Industry -52 degrees MUSE SYSTEM INTERPRETATION Atrial flutter with slow ventricular response with frequent ventricular-pa brenda complexes Left axis deviation Non-specific intra-ventricu lar conduction block Minimal voltage criteria for LVH, may be normal variant ( Steele product ) Nonspecific T wave abnormality Abnormal ECG When compared with ECG of 08-MAY-2022 13:26, Vent. rate has decreased BY ??14 BPM Confirmed by MD MARISOL, SHAQ ([id number]) on 04/08/2024 2:15:21 PM MUSE SYSTEM 04/08/2024 12:2 6 PM EDT 04/08/2024 2:15 PM EDT Unknown ECG ORDERABLES MUSE SYSTEM documented in this encounter Visit Diagnoses Diagnosis Persistent atrial fibrillation Atrial fibrillation Cardiomyopathy, unspecified type Pacemaker Cardiac pacemaker in situ Atrial fibrillation with RVR - had flutter initially, then fib Atrial fibrillation Atrial flutter by electrocardiogram Atrial flutter History of left atrial appendage closure documented in this encounter Care Teams Tankroom Tender Relationship Specialty Start Date End Date Urbano Jimenez DO [address] [place] [address] PCP - General Family Medicine 03/18/22 Ruchi Valles RN Nurse Clinic Transplant Surgery 07/30/15 documented as of this encounter
--- OUTSIDE RECORDS SUMMARY | 2024-05-16 17:15 | XMS_ITS | Encounter Summary ---
[place] [address] Care Team Providers Care Ground Water Technician Name Role Phone Urbano Jimenez DO Primary Care Provider [phone] Encounter Details Date Type Department Care Team (Latest Contact Info) Description 01/16/2024 10:00 AM EDT - 01/16/2024 11:59 PM EDT Hospital Encounter Non-[place]vasive [place] [address] Discharge Disposition: Home Social History Tobacco Use [...] by mouth daily. 90 tablet 3 09/16/2023 tacrolimus (Prograf) 1 mg IR capsuleIndications:H/O kidney [...] AM EST TH Visit (TeleHealth) Cardiology at [address] [phone] [place] Brown MD [facility] [place] [address] 07/14/2024 10:00 AM EST Hospital Encounter Non-Invasive [place] [address] Arrived documented as of this [...] on filedocumented in this encounter Care Teams Ground Water Technician Relationship Specialty Start Date End Date Urbano Jimenez DO [address] [place] [address] PCP - General Family Medicine 03/18/22 Ruchi Valles RN Nurse Clinic Transplant Surgery 07/30/15 documented as of this encounter
--- OUTSIDE RECORDS SUMMARY | 2024-05-16 17:15 | XMS_ITS | Encounter Summary ---
Author Organization [facility] Address [facility] [place] [address] Care Team Providers Care Restaurant District Manager Name Role Phone Urbano Jimenez Ray KIRBY Primary Care Provider [phone] Reason for Visit * Reason Onset Date Comments Medication Refill 08/31/2023 Encounter Details Date Type Department Care Team (Late st Contact Info) Description 08/31/2023 Refill Cardiology at [address] [phone] Mayco Haro PA [facility] [place] [address] Medication Refill Social History Tobacco Use Types [...] AM EST TH Visit (TeleHealth) Cardiology at [address] [phone] [place] Brown MD [facility] [place] [address] 07/14/2024 10:00 AM EST Hospital Encounter Non-[place] [phone] Arrived documented as of this encounter Goals [...] on filedocumented in this encounter Care Teams Restaurant District Manager Relationship Specialty Start Date End Date Urbano Jimenez DO [address] [place] [address] PCP - General Family Medicine 03/18/22 Ruchi Valles RN Nurse Clinic Transplant Surgery 07/30/15 documented as of this encounter
--- OUTSIDE RECORDS SUMMARY | 2024-05-16 17:15 | XMS_ITS | Encounter Summary ---
[place] [address] Care Team Providers Care Dance Director Name Role Phone Urbano Jimenez Ray KIRBY Primary Care Provider [phone] Reason for Visit * Reason Onset Date Comments Medication Refill 04/07/2024 Encounter Details Date Type Department Care Team (Late st Contact Info) Description 04/07/2024 Refill [place] [phone] Marisela Metcalf RN H/O kidney transplant Social History Tobacco Use Types Packs/Day Years Used Date Smoking Tobacco: Light Smoker Cigars Smokeless Tobacco: Never Comments:cigars, one weekly Alcohol Use Standard Drinks/Week Comments No 0 (1 standard drink = 0.6 oz pur e alcohol) [facility] Inpatient Questions Answer Date Recorded Does [...] AM EST TH Visit (TeleHealth) Cardiology at [address] [phone] [place] Brown MD [facility] [place] [address] 07/14/2024 10:00 AM EST Hospital Encounter Non-Invasive Cardiology Lab [facility] [place] [address] Arrived documented as of this encounter Goals [...] transplant documented in this encounter Care Teams Dance Director Relationship Specialty Start Date End Date Urbano Jimenez DO [address] [place], [place] [address] [place] [address] PCP - General Family Medicine 03/18/22 Ruchi Valles RN Nurse Clinic Transplant Surgery 07/30/15 documented as of this encounter
--- OUTSIDE RECORDS SUMMARY | 2024-05-16 17:15 | XMS_ITS | Encounter Summary ---
Author Organization [facility] [place] [address] Care Team Providers Care Airfield Engineer Officer Name Role Phone Urbano Jimenez DO Primary Care Provider [phone] Encounter Details Date Type Department Care Team (Late st Contact Info) Description 10/01/2023 Notes Only [place] [address] Anabella Bright Social History Tobacco Use Types [...] Bright - 10/01/2023 3:43 PM EDT Transplant Network Control Supervisor Note: Completed physician portion of Jardiance MAP form, obtained signature from Dr. Eagle, and emailed form back to Mara. She will file the application on her own. Will remain available for support as needed. documented in this encounter Plan of Treatment Upcoming Encounters Date Type Department Care Team (Late st Contact Info) Description 06/22/2024 11:00 AM EST TH Visit (TeleHealth) Cardiology at [address] [phone] [place] Brown MD [facility] [place] [place] [address] 07/14/2024 10:00 AM EST Hospital Encounter Non[place] [address] Arrived documented as of this encounter Goals Goal Patient Goal Type Associated Problems Recent Progress Patient-Stated? Author Home Medication Compliance and Understanding Patient Facing Action Plan On track( 017 10:41 AM EDT) No Selena Cisneros, [facility] Note: Patient Goal: Clear hepatitis C Timeframe to meet goal: within 12 weeks of therapy documented as of this encounter Visit Diagnoses Not on filedocumented in this encounter Care Teams Airfield Engineer Officer Relationship Specialty Start Date End Date Urbano Jimenez DO [address] [place] [address] PCP - General Family Medicine 03/18/22 Ruchi Valles RN Nurse Clinic Transplant Surgery 07/30/15 documented as of this encounter
--- OUTSIDE RECORDS SUMMARY | 2024-05-16 17:15 | XMS_ITS | Encounter Summary ---
[place] [address] Care Team Providers Care Water Valve Mechanic Name Role Phone Tony Urbano Ray KIRBY Primary Care Provider [phone] Reason for Visit * Reason Onset Date Comments Fatigue 05/13/2024 Patient has pers istent Rate Controlled Atrial Fibrillation Encounter Details Date Type Department Care Team (Late st Contact Info) Description 05/13/2024 Telephone Cardiology at [address] [phone] Marisela Bob, RN Fatigue (Patient has persistent Rate Controlled Atrial Fibrillation) Social History Tobacco Use Types Packs/Day Years [...] Telephone Encounter - Marisela Bob RN - 05/13/2024 4:43 PM EST Reason for Call: Fatigue Past medical history which may be related to reason for call: OV per Dr Urban, 04/08/2024 Diagnoses Codes Comments Persistent atrial fibrillation I48.19 Cardiomyopathy, unspecified type I42.9 Pacemaker Z95.0 Atrial fibrillation with RVR I48.91 Atrial flutter by electrocardiogram I48.92 History of left atrial appendage closure Z98.890 History: History: Cody Bolden is 73 yo male [...] February of this year (see graphs below) //////////////////////////////////////////////////////////////////// Nursing Assessment: RTC to Mrs Bolden who has concern regarding her 's activity level, especially since he hashad a rate adjustment, to his Pacemaker, per Seam Taper Machine. She states at times he gets up inthe morning, and then goes back to bed, as he has a lack of energy. ///////////////////////////////////////////////////////////////// Telephone with MD CAROLIN, on 04/22/2024: Spoke to patient and regarding patients symptoms. [...] are going to watch his symptoms for now ///////////////////////////////////////////////////////////////////////// Disposition: Agree with Mrs Bolden, to forward message and request for scheduling with Dr Brown. Worsening Symptoms: Mrs Bolden agrees to call with any further questions, or issues, and knows when to call 911, and seek emergency care. Marisela Bob (Jodie) RN, BSN Cardiology Ambulatory Clinic documented in this encounter Plan of Treatment Upcoming Encounters Date Type Department Care Team (Late st Contact Info) Description 06/22/2024 11:00 AM EST TH Visit (TeleHealth) Cardiology at [address] [phone] [place] Brown MD [facility] [place] [address] 07/14/2024 10:00 AM EST Hospital Encounter Non-[place] [phone] Arrived documented as of this encounter Goals [...] on filedocumented in this encounter Care Teams Water Valve Mechanic Relationship Specialty Start Date End Date Urbano Jimenez DO [address] [place] [address] PCP - General Family Medicine 03/18/22 Ruchi Valles RN Nurse Clinic Transplant Surgery 07/30/15 documented as of this encounter
--- OUTSIDE RECORDS SUMMARY | 2024-05-16 17:15 | XMS_ITS | Encounter Summary ---
Author Organization [facility] [place] [address] Care Team Providers Care Pesticide Control Inspector Name Role Phone Urbano Jimenez DO Primary Care Provider [phone] Encounter Details Date Type Department Care Team (Latest Contact Info) Description 08/05/2023 Orders Only [place] [phone] Urbano Houston LPN H/O kidney transplant; Other complication of kidney transplant; penitentiary current use of immunosuppressive drug; Vitamin D [...] AM EST TH Visit (TeleHealth) Cardiology at [address] [phone] [place] Brown MD 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
--- OUTSIDE RECORDS SUMMARY | 2024-05-16 17:15 | XMS_ITS | Encounter Summary ---
Author Organization [facility] [place] [address] Care Team Providers Care Concrete Panel Installer Name Role Phone Urbano Jimenez DO Primary Care Provider [phone] Encounter Details Date Type Department Care Team (Late st Contact Info) Description 06/05/2023 Telephone Cardiology at [address] [phone] Kate Gastelum Social History Tobacco Use Types Packs/Day Years Used Date Smoking Tobacco: Light Smoker Cigars Smokeless Tobacco: Never Comments:cigars, one weekly Alcohol Use Standard Drinks/Week Comments No 0 (1 standard drink = 0.6 oz pur e alcohol) [facility] Inpatient Questions Answer Date Recorded Does Anyone [...] has appt for a device check at [facility] in August. Kate Gastelum EP Scheduling documented in this encounter Plan of Treatment Upcoming Encounters Date Type Department Care Team (Late st Contact Info) Description 06/22/2024 11:00 AM EST TH Visit (TeleHealth) Cardiology at [address] [phone] [place] Brown MD [facility] [place] [address] 07/14/2024 10:00 AM EST Hospital Encounter Non-[place] [phone] Arrived documented as of this encounter Goals [...] filedocumented in this encounter Care Teams Concrete Panel Installer Relationship Specialty Start Date End Date Urbano Jimenez DO [address] [place] [address] PCP - General Family Medicine 03/18/22 Ruchi Valles RN Nurse Clinic Transplant Surgery 07/30/15 documented as of this encounter
--- OUTSIDE RECORDS SUMMARY | 2024-05-16 17:15 | XMS_ITS | Clinical Summary ---
Author Organization [facility] Address [facility] [place] [address] Care Team Providers Care Pari Mutuel Ticket Seller Name Role Phone Urbano Jimenez DO Primary Care Provider [phone] Allergies Active Allergy Reactions Criticality Noted Date Comments [place] 02/25/2022 Medications Medication Sig Dispensed Refills Start [...] mouth daily. 90 tablet 3 09/16/2023 Active Additional Information Patient not taking.Reported on 04/08/2024 metFORMIN (Glucophage) 500 mg tablet Take 500 mg by mouth 2 times daily (with meals). Active calciTRIoL (Rocaltrol) 0.5 mcg capsuleIndications: H/O kidney transplant,Other complication of kidney transplant Take 1 capsule by mouth daily. 90 capsule 3 12/02/2023 Active tacrolimus (Prograf) 1 mg IR capsuleIndications: H/O kidney transplant Take 1 capsule by mouth 2 times daily. 180 capsule 1 04/04/2024 Active mycophenolate (Cellcept) 250 mg capsuleIndications: H/O kidney transplant Take 1 capsule by mouth 2 times daily. 180 capsule 1 04/07/2024 Active Saxagliptin (Onglyza) 5 mg tablet Take 1 tablet by mouth Daily at Noon. 04/01/2024 Active Active Problems Problem Noted Date Diagnosed Date Hypertriglyceridemia 09/21/2023 PTDM (post-transplant diabetes mellitus) 024 Calculus of bile duct withou t cholangitis or cholecystitis without obstruction 09/21/2023 Diverticulitis 09/14/2022 Atrial fibrillation 05/08/2022 Aortic stenosis, mild 03/18/2022 Mitral regurgitation 03/18/2022 Overview (03/18/2022): Moderate Pacemaker 01/31/2022 Overview (03/18/2022): 01/31/2022 Successful implantation of a dual chamber Medtronic pacemaker Medtronic [place] XT DR MRI Model 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 [...] back surgery to lower risk of periop AZ or stent thrombosis. Left leg pain 05/30/2019 [...] mary-device leak. No change in pericardial effusion. Rspm-ca-ilcwh flow across atrial septostomy. See report for [...] not on ARB as discussed by Dr Damon in his last note, but at this point does not have clinical CHF (and his LVEF had improved after aflutter episode). Hydronephrosis 06/16/2018 Obesity (BMI 30.0-34.9) 11/10/2017 Debility 10/05/2017 Pain of right lower extremity 10/05/2017 Vitamin D deficiency 09/20/2017 Prophylactic immunotherapy 09/22/2016 magnetic locater current use of immunosuppressive drug 09/22/2016 CAH [...] Have suggested to follow up with Dr Damon or his PCP in this regard, could [...] Encounters Date Type Department Care Team Description 05/13/2024 Telephone Cardiology at [address] [address] Marisela Bob RN Fatigue (Patient has persistent Rate Controlled Atrial Fibrillation) 04/22/2024 [place] [address] Destin Hanks MD 04/15/2024 10:00 AM EDT - 04/15/2024 11:59 PM EDT Hospital Encounter Non[place] [phone] Discharge Disposition: Home 04/08/2024 11:40 AM EDT Office Visit Cardiology at [address] [address] Jay Urban MD Persistent atrial fibrillation; Cardiomyopathy, unspecified type; Pacemaker; Atrial fibrillation with RVR - had flutter initially, then fib; Atrial flutter by electrocardiogram; History of left atrial appendage closure 04/08/2024 Travel 04/07/2024 Refill Solid Organ Transplant at [place] [phone] Marisela Metcalf RN H/O kidney transplant 04/07/2024 Telephone [place] [address] Barbara Josue 04/04/2024 Refill [place] [address] Marisela Metcalf RN H/O kidney transplant 04/04/2024 Telephone [place] [address] Barbara Josue 03/29/2024 Refill [place] [address] Gurdeep Boston APRN H/O kidney transplant 02/16/2024 Telephone [place] [address] Marisela Metcalf RN 02/16/2024 Telephone [place] [address] Mara Kimble from Last 3 Months Immunizations Name Administration Dates Next Due Covid-19 Bivalent (Pfizer Co mirnaty) 12yrs+ (8314-8231) 12/22/2022,04/24/2022 Covid-19 Monovalent (Moderna Spikevax) 12yrs+ () 05/11/2021,10/03/2020,09/05/2020 Covid-19 Monovalent (Pfizer Comirnaty purple cap) 12yrs+ () 04/24/2022 Hepatitis B, Unspecified Formulation 06/20/2015, 05/14/2015,04/16/2015 Influenza (Fluzone HD) Triva lent High Dose 04/23/2016 Influenza PF, Split 08/03/2017, 5,05/26/2013,06/04 Influenza Quadrivalent, Pres ervative Free (6-35 Mos) 04/04/2015 Influenza Unspecified Formulation 04/24/2022 Pneumococcal 23-Valent Polys accharide (Pneumovax 23) 10/03/2021,04/11/2015,06/20/2014 Td Adult (not absorbed) 05/20/2011,07/06/2000 Tdap (Adacel, Boostrix) 09/30/2022,05/20/2011 Zoster LIVE (Zostavax) 08/30/2015 Family History Medical History Relation Comments [...] Pulse 61 04/08/2024 11:40 AM EDT Temperature 36.7 ??C (98 ??F) 09/16/2023 11:01 AM EDT Respiratory Rate 18 09/19/2022 10:37 AM EDT Oxygen Saturation 97% 04/08/2024 11:40 AM EDT Inhaled Oxygen Concentration - - Weight 101.6 kg (224 lb) 04/08/2024 11:40 AM EDT Height 180.3 cm (5' 11) 04/08/2024 11:40 AM EDT Body Mass Index 31.24 04/08/2024 11:40 AM EDT Plan of Treatment Upcoming Encounters Date Type Department Care Team (Late st Contact Info) Description 06/22/2024 11:00 AM EST TH Visit (TeleHealth) Cardiology at [address] [phone] [facility] [address] 07/14/2024 10:00 AM EST Hospital Encounter [place] [address] Arrived Health Maintenance Due Date Last Done [...] Additional history exists Covid-19 Vaccine (7 - 2023-2 5 season) 2024 12/22/2022, 04/24/2022, 04/24/2022, Additional history [...] of therapy Medical Devices Implanted Type Area Video Software Engineer Device Identifier Shelf Expiration Date Model / Serial / Lot Organ Aquisition Renal Donor Kidney - [id number] Implanted:Qty : 1 on 09/16/2015 by Franko Larkin MD at [facility] IMPLANTS UNOS # [id number] / / Stent,Dbl-J,U ret,[id number] ([id number]) - [id number] Implanted:Qty : 1 on 09/16/2015 by Franko Larkin MD at [facility] IMPLANTS DO NOT USE Olympus Kassandra - Surgical Pro - [id number] / / Stent,Dbl-J,U ret,7uzp32kg ([id number]) - [id number] Implanted:Qty : 1 on 05/20/2016 by Santosh Arredondo MD at [facility] IMPLANTS Left: Ureter DO NOT USE Olympus Kassandra - Surgical Pro - [id number] 05/28/2020 [id number] / / [id number] Cement,Bne,Sm artset,Ghv,40 g ([id number]) - [id number] Implanted:Qty : 2 on 11/25/2017 by Breezy Dale MD at [facility] IMPLANTS Right: Knee DO NOT USE Depuy Cylinder Die Machine Operator - 3527 05/05/2019 [id number] / / [id number] Base,Atun,Tib ,Fb,Cmnt,Sz8 ([id number]) (Autoreq) - [id number] Implanted:Qty : 1 on 11/25/2017 by Breezy Dale MD at [facility] IMPLANTS Right: Knee DO NOT USE Depuy Cylinder Die Machine Operator - 3527 07/05/2027 [id number] / / [id number] Ramón Mack Mdl,Dome,41mm ([id number]) (Autoreq) - [id number] Implanted:Qty : 1 on 11/25/2017 by Breezy Dale MD at [facility] IMPLANTS Right: Knee DO NOT USE Depuy Cylinder Die Machine Operator - 3527 09/02/2022 1518-20-041 / / [id number] [place],Attune, Fem,Cr,Sz8,Rt ([id number]) (Autoreq) - [id number] Implanted:Qty : 1 on 11/25/2017 by Breezy Dale MD at [facility] IMPLANTS Right: Knee DO NOT USE Depuy Cylinder Die Machine Operator - 3527 06/04/2027 [id number] / / [id number] Inser,Attune, Cr,Fb,Sz8,5mm ([id number]) (Autoreq) - [id number] Implanted:Qty : 1 on 11/25/2017 by Breezy Dale MD at [facility] IMPLANTS Right: Knee DO NOT USE Depuy Cylinder Die Machine Operator - 3527 09/02/2022 1516-20-805 / / [id number] Putty,Bone,Pr ogenix,Dbm,5c c ([id number]) - [id number] Implanted:Qty : 1 on 05/10/2020 by Joseph Ang MD at [facility] IMPLANTS Left: Spine Lumbar [employer]TR[employer] - MEDTRONIC [id number] 01/11/2021 [id number] / [id number] / [id number] Mdt: 5076: [id number]/ 29/2022 Implanted: by Jay Urban MD (Quantity not on file) Lead Heart Medtronic - [id number] / [id number] / t: 5076: [id number]/ 29/2022 Implanted: by Jay Urban MD (Quantity not on file) Lead Heart Medtronic - [id number] / [id number] / t: W1dr01: [id number]/ 29/2022 Implanted: by Jay Urban MD (Quantity not on file) Pacemaker Chest Medtronic - [id number] / [id number] / Procedures Procedure Name Priority Date/Time Associated Diagnosis Comments EKG 12-LEAD Routine 04/08/2024 12:26 PM EDT PRO PM INTERROGATION REMOTE UP TO 90 DAYS Routine 03/22/2024 1:[address] SCAN (SCAN) 02/14/2024 12:00 AM EDT COMPREHENSIVE METABOLIC PANEL Routine 10/10/2022 8:22 AM EDT H/O kidney transplant magnetic locater current use of immunosuppressive drug Vitamin D deficiency HC HEMOGLOBIN A1C Routine 03/18/2022 10: 58 AM EDT H/O kidney transplant Vitamin D deficiency magnetic locater current use of immunosuppressive drug from Last 3 Months or Most Recently Relevant to Health Maintenance Results * EKG 12 Lead (04/08/2024 12:26 PM EDT) Ventricular rate 59 BPM MUSE SYSTEM QRS Duration 126 ms MUSE SYSTEM Q-T Interval 410 ms MUSE SYSTEM QTC Calculated (Bezet) 405 ms MUSE SYSTEM Calculated R [place] -63 degrees MUSE SYSTEM Calculated T [place] -52 degrees MUSE SYSTEM INTERPRETATION Atrial flutter with slow ventricular response with frequent ventricular-pa brenda complexes Left axis deviation Non-specific intra-ventricu lar conduction block Minimal voltage criteria for LVH, may be normal variant ( [place] product ) Nonspecific T wave abnormality Abnormal ECG When compared with ECG of 08-MAY-2022 13:26, Vent. rate has decreased BY ??14 BPM Confirmed by MD DAMON SALVATORE ([id number]) on 04/08/2024 2:15:21 PM MUSE SYSTEM 04/08/2024 12:2 6 PM EDT 04/08/2024 2:15 PM EDT Unknown ECG ORDERABLES MUSE SYSTEM * Cardiac Device Check - Remote (03/22/2024 1:42 PM EDT) Anatomical Region Laterality Modality Other 03/22/2024 1:42 PM EDT Ryley Vargas MD IMPLANTABLE CARDIAC DEVICE * Scan Doc: CT Scan (02/14/2024 12:00 AM EDT) Anatomical Region Laterality Modality Other Narrative 02/14/2024 12:00 AM EDT Ordered by an unspecified provider. Scanning Provider MEDIA MGR SCAN EXT O RDR/RSLT * (ABNORMAL) Comprehensive metabolic panel (non-fasting) (10/10/2022 8:22 AM EDT) Glucose 183 65 - 199 mg/dL [facility] Comment:Diabetes: >=200 mg/d L plus symptoms Blood Urea Nitrogen 15 10 - 20 mg/dL [facility] Creatinine 1.26 0.80 - 1.50 mg/dL [facility] Sodium 143 135 - 145 mmol/L [facility] Potassium 4.2 3.5 - 5.0 mmol/L [facility] Comment: Please note: ??Patients with WBC >100,000 may have falsely elevated Potassium levels. ??For accurate Potassium quantification in these patients send serum separator tube (gold top) for subsequent determinations. ??Contact the Clinical Chemistry Laboratory if there are any questions. Chloride 104 98 - 107 mmol/L [facility] Carbon Dioxide 28 22 - 31 mmol/L [facility] Anion Gap 11 5 - 15 mmol/L [facility] Calcium 9.9 8.5 - 10.5 mg/dL [facility] Protein, Total 7.2 6.1 - 8.0 g/dL [facility] Albumin 4.2 3.2 - 5.2 g/dL [facility] Aspartate Aminotransferase 22 0 - 39 unit/L [facility] Alanine Aminotransferase 22 0 - 55 unit/L [facility] Alkaline Phosphatase 84 40 - 130 unit/L [facility] Bilirubin, Total 2.0(H) 0.2 - 1.3 mg/dL [facility] Est Glomerular Filtration Rate 60 >=60 mL/min/1. 73 m?? [facility] Comment: This patient's estimated GFR was [...] Agency Comment Spec In Lab Gurdeep Boston RN FAMILY PRACTICE CHEMISTRY ORDERABLES Performing Organization Address City/State/[facility] Co de Phone Number [facility] [address] * (ABNORMAL) Hemoglobin A1c (03/18/2022 10:58 AM EDT) Hemoglobin A1c 6.6(H) 4.3 - 5.6 % [facility] [...] Mellitus, Diabetes Care 2013; 36: Suppl. 1, S67-99 Estimated Average Glucose See note mg/dL [facility] [...] into estimated average glucose values. ??Diabetes Care 2008:31(8):4736-9188. Blood 03/18/2022 10:5 8 AM EDT 03/18/2022 11:17 AM EDT Narrative Resulting Agency Comment Spec In Lab Tal Eagle MD CHEMISTRY ORDERAB LES [facility] [place] [address] from Last 3 Months or Most Recently Relevant to Health Maintenance Advance Directives Documents on File Type Date Recorded Patient Remelt Furnace Expediter Expl anation Personal Remelt Furnace Expediter 04/23/2020 11:55 AM Mara Bolden Advance Directives [...] capacity to make decision: Yes Care Teams Pari Mutuel Ticket Seller Relationship Specialty Start Date End Date Urbano Jimenez DO [address] [place] [address] PCP - General Family Medicine 03/18/22 Ruchi Valles RN Nurse Clinic Transplant Surgery 07/30/15
--- OUTSIDE RECORDS SUMMARY | 2024-05-16 17:15 | XMS_ITS | Encounter Summary ---
Author Organization [facility] [place] [address] Care Team Providers Care Band Sawing Machine Operator Name Role Phone PerrydebUrbano DO Primary Care Provider [phone] Encounter Details Date Type Department Care Team (Latest Contact Info) Description 09/16/2023 Travel Social History Tobacco Use Types Packs/Day Years Used Date Smoking Tobacco: Light Smoker Cigars Smokeless Tobacco: Never Comments:cigars, one weekly Alcohol Use Standard Drinks/Week Comments No 0 (1 standard drink = 0.6 oz pur e alcohol) [facility] Inpatient Questions Answer Date Recorded Does [...] 11:00 AM EST Visit (TeleHealth) Cardiology at [address] [address] Byron Brown MD [facility] [place] [address] 07/14/2024 10:00 AM EST Hospital Encounter Non[place] [address] Arrived documented as of this encounter Goals [...] on filedocumented in this encounter Care Teams Band Sawing Machine Operator Relationship Specialty Start Date End Date Urbano Jimenez DO [address] [place] [address] PCP - General Family Medicine 03/18/22 Ruchi Valles RN Nurse Clinic Transplant Surgery 07/30/15 documented as of this encounter
--- OUTSIDE RECORDS SUMMARY | 2024-05-16 17:15 | XMS_ITS | Encounter Summary ---
Author Organization [facility] [place] [address] Care Team Providers Care Brim Blocker Name Role Phone Urbano Jimenez Ray KIRBY Primary Care Provider [phone] Encounter Details Date Type Department Care Team (Late st Contact Info) Description 09/02/2023 Telephone [place] [address] Mara Kimble Social History Tobacco [...] AM EST TH Visit (TeleHealth) Cardiology at [address] [phone] Byron Brown MD [facility] [place] [address] 07/14/2024 10:00 AM EST Hospital Encounter Non[place] [address] Arrived documented as of this [...] on filedocumented in this encounter Care Teams Brim Blocker Relationship Specialty Start Date End Date Urbano Jimenez DO [address] [place] [address] PCP - General Family Medicine 03/18/22 Ruchi Valles RN Nurse Clinic Transplant Surgery 07/30/15 documented as of this encounter
--- OUTSIDE RECORDS SUMMARY | 2024-05-16 17:15 | XMS_ITS | Encounter Summary ---
Author [facility] [place] [address] Care Team Providers Care Orthopaedic Technologist Name Role Phone Urbano Jimenez DO Primary Care Provider [phone] Encounter Details Date Type Department Care Team (Latest Contact Info) Description 08/05/2023 Orders Only [place] [address] Urbano [place] LPN H/O kidney transplant; Other complication of kidney transplant; skilled nursing current use of immunosuppressive drug; Vitamin D [...] AM EST TH Visit (TeleHealth) Cardiology at [address] [phone] Byron Brown MD [facility] [place] [address] 07/14/2024 10:00 AM EST Hospital Encounter Non-Invasive Cardiology Lab [facility] [place] [address] Arrived Scheduled Orders Name Type Priority Associated Diagnoses Orde r Schedule CBC (with Diff) Lab Routine H/O kidney transplant Other complication of kidney transplant skilled nursing current use of immunosuppressive drug Vitamin D deficiency Expected: 08/05/2023, Expires: 02/02/2025 Hemoglobin A1c Lab Routine H/O kidney transplant Other complication of kidney transplant skilled nursing current use of immunosuppressive drug Vitamin D deficiency Expected: 08/06/2023 (Approximate), Expires: 08/05/2024 Reticulocyte Count Lab Routine H/O kidney transplant Other complication of kidney transplant skilled nursing current use of immunosuppressive drug Vitamin D deficiency Expected: 08/05/2023, Expires: 02/02/2025 Comprehensive metabolic panel (non-fasting) Lab Routine H/O kidney transplant Other complication of kidney transplant skilled nursing current use of immunosuppressive drug Vitamin D deficiency Expected: 08/05/2023, Expires: 02/02/2025 Lipid Panel (Reflex Direct LDL) Lab Routine H/O kidney transplant Other complication of kidney transplant skilled nursing current use of immunosuppressive drug Vitamin D deficiency Expected: 08/05/2023, Expires: 02/02/2025 Phosphorus Lab Routine H/O kidney transplant Other complication of kidney transplant skilled nursing current use of immunosuppressive drug Vitamin D deficiency Expected: 08/05/2023, Expires: 02/02/2025 Magnesium Lab Routine H/O kidney transplant Other complication of kidney transplant terminal superintendent current use of immunosuppressive drug Vitamin D deficiency Expected: 08/05/2023, Expires: 02/02/2025 Uric acid Lab Routine H/O kidney transplant Other complication of kidney transplant terminal superintendent current use of immunosuppressive drug Vitamin D deficiency Expected: 08/05/2023, Expires: 02/02/2025 PTH Lab Routine H/O kidney transplant Other complication of kidney transplant terminal superintendent current use of immunosuppressive drug Vitamin D deficiency Expected: 08/05/2023, Expires: 02/02/2025 Vitamin D, 25-Hydroxy Lab Routine H/O kidney transplant Other complication of kidney transplant terminal superintendent current use of immunosuppressive drug Vitamin D deficiency Expected: 08/05/2023, Expires: 02/02/2025 1,25-dihydroxycholecalci ferol Lab Routine H/O kidney transplant Other complication of kidney transplant skilled nursing current use of immunosuppressive drug Vitamin D deficiency Expected: 08/05/2023, Expires: 02/02/2025 Urinalysis with reflex Culture Lab Routine H/O kidney transplant Other complication of kidney transplant skilled nursing current use of immunosuppressive drug Vitamin D deficiency Expected: 08/06/2023 (Approximate), Expires: 08/05/2024 Protein/Creatinine Ratio, urine Lab Routine H/O kidney transplant Other complication of kidney transplant terminal superintendent current use of immunosuppressive drug Vitamin D deficiency Expected: 08/05/2023, Expires: 02/02/2025 Calcium Creatinine Ratio, random urine Lab Routine H/O kidney transplant Other complication of kidney transplant skilled nursing current use of immunosuppressive drug Vitamin D deficiency Expected: 08/05/2023, Expires: 02/02/2025 Creatinine, urine, random Lab Routine H/O kidney transplant Other complication of kidney transplant terminal superintendent current use of immunosuppressive drug Vitamin D deficiency Expected: 08/05/2023, Expires: 02/02/2025 Magnesium, urine, random Lab Routine H/O kidney transplant Other complication of kidney transplant skilled nursing current use of immunosuppressive drug Vitamin D deficiency Expected: 08/05/2023, Expires: 02/02/2025 Phosphorus, urine, random Lab Routine H/O kidney transplant Other complication of kidney transplant 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 superintendent current use of immunosuppressive drug Vitamin D deficiency Expected: 08/05/2023, Expires: 02/02/2025 Gold Tube HOLD Lab Routine H/O kidney transplant Other complication of kidney transplant 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 superintendent current use of immunosuppressive drug Vitamin D deficiency Expected: 08/05/2023, Expires: 02/02/2025 Lavender Tube HOLD Lab Routine H/O kidney transplant Other complication of kidney transplant skilled nursing current use of immunosuppressive drug Vitamin D deficiency Expected: 08/05/2023, Expires: 02/02/2025 Tacrolimus level Lab Routine H/O kidney transplant Other complication of kidney transplant skilled nursing current use of immunosuppressive drug Vitamin D deficiency Expected: 08/05/2023, Expires: 02/02/2025 BKV Quant Blood Lab Routine H/O kidney transplant Other complication of kidney transplant terminal superintendent current use of immunosuppressive drug Vitamin D [...] by transplant Other complication of kidney transplant skilled nursing current use of immunosuppressive drug Vitamin D deficiency Unspecified vitamin D deficiency documented in this encounter Care Teams Orthopaedic Technologist Relationship Specialty Start Date End Date Urbano Jimenez DO [address] [place] [address] PCP - General Family Medicine 03/18/22 Ruchi Valles RN Nurse Clinic Transplant Surgery 07/30/15 documented as of this encounter
--- OUTSIDE RECORDS SUMMARY | 2024-05-16 17:15 | XMS_ITS | Encounter Summary ---
Author [place] [address] Care Team Providers Care Hrbp Name Role Phone Urbano Jimenez DO Primary Care Provider [phone] Encounter Details Date Type Department Care Team (Latest Contact Info) Description 07/20/2023 10:00 AM EST - 07/20/2023 11:59 PM [facility] Hospital Encounter [place] [address] Discharge Disposition: Home Social History Tobacco Use [...] AM EST TH Visit (TeleHealth) Cardiology at [address] [phone] Byron Brown MD [facility] [place] [address] 07/14/2024 10:00 AM EST Hospital Encounter Non-[place] [address] Arrived documented as of this [...] on filedocumented in this encounter Care Teams Hrbp Relationship Specialty Start Date End Date Urbano Jimenez DO [address] [place] [address] PCP - General Family Medicine 03/18/22 Ruchi Valles RN Nurse Clinic Transplant Surgery 07/30/15 documented as of this encounter
--- OUTSIDE RECORDS SUMMARY | 2024-05-16 17:15 | XMS_ITS | Encounter Summary ---
Author Organization [place] [address] Care Team Providers Care Bioinformatics Technician Name Role Phone Urbano Jimenez Ray KIRBY Primary Care Provider [phone] Encounter Details Date Type Department Care Team (Late st Contact Info) Description 11/09/2023 Telephone [place] [address] Mara Kimble Social History Tobacco [...] AM EST TH Visit (TeleHealth) Cardiology at [address] [phone] Byron Brown MD [facility] [address] 07/14/2024 10:00 AM EST Hospital Encounter Non-Invasive Cardiology Lab [place] [...] on filedocumented in this encounter Care Teams Bioinformatics Technician Relationship Specialty Start Date End Date Urbano Jimenez DO [address] [place] [address] PCP - General Family Medicine 03/18/22 Ruchi Valles RN Nurse Clinic Transplant Surgery 07/30/15 documented as of this encounter
--- OUTSIDE RECORDS SUMMARY | 2024-05-16 17:15 | XMS_ITS | Encounter Summary ---
Author Organization [facility] [place] [address] Care Team Providers Care Manager State Name Role Phone Urbano Jimenez Ray KIRBY Primary Care Provider [phone] Encounter Details Date Type Department Care Team (Late st Contact Info) Description 11/17/2023 External Results [place] [address] Social History Tobacco Use Types Packs/Day Years Used Date Smoking Tobacco: Light Smoker Cigars Smokeless Tobacco: Never Comments:cigars, one weekly Alcohol Use Standard Drinks/Week Comments No 0 (1 standard drink = 0.6 oz pur e alcohol) [facility] Inpatient Questions Answer Date Recorded [...] AM EST TH Visit (TeleHealth) Cardiology at [address] [phone] Byron Brown MD [facility] [place] [address] 07/14/2024 10:00 AM EST Hospital Encounter Non-[place]vasive [place] [address] Arrived documented as of this encounter Goals [...] Procedure Name Priority Date/Time Associated Diagnosis Comments [facility] [place] Routine 11/12/2023 5:01 PM EDT documented in this encounter Results * [facility] [place] (11/12/2023 5:01 PM EDT) Historical Provider POINT OF CARE BOBY T ORDERABLES documented in this encounter Visit Diagnoses Not on filedocumented in this encounter Care Teams Manager State Relationship Specialty Start Date End Date Urbano Jimenez DO [address] [place] [address] PCP - General Family Medicine 03/18/22 Ruchi Valles RN Nurse Clinic Transplant Surgery 07/30/15 documented as of this encounter
--- OUTSIDE RECORDS SUMMARY | 2024-05-16 17:15 | XMS_ITS | Encounter Summary ---
[place] [address] Care Team Providers Care Incident Response Coordinator Name Role Phone Urbano Jimenez DO Primary Care Provider [phone] Encounter Details Date Type Department Care Team (Latest Contact Info) Description 10/18/2023 10:00 AM EDT - 10/18/2023 11:59 PM EDT Hospital Encounter [place] [phone] Discharge Disposition: Home Social History Tobacco Use Types Packs/Day Years Used Date Smoking Tobacco: Light Smoker Cigars Smokeless Tobacco: Never Comments:cigars, one weekly Alcohol Use Standard Drinks/Week Comments No 0 (1 standard drink = 0.6 oz pur e alcohol) [facility] Inpatient Questions Answer Date Recorded [...] Tablet Take 137 mcg by mouth daily. empagliflozin (Jardiance) 10 mg [...] AM EST TH Visit (TeleHealth) Cardiology at [address] [phone] Byron Brown MD [facility] [place] [address] 07/14/2024 10:00 AM EST Hospital Encounter Non[place] [address] Arrived documented as of this [...] on filedocumented in this encounter Care Teams Incident Response Coordinator Relationship Specialty Start Date End Date Urbano Jimenez DO [address] [facility] [place] [address] PCP - General Family Medicine 03/18/22 Ruchi Valles RN Nurse Clinic Transplant Surgery 07/30/15 documented as of this encounter
--- OUTSIDE RECORDS SUMMARY | 2024-05-16 17:16 | XMS_ITS | Encounter Summary ---
Author Organization [facility] Address [facility] [place] [address] Care Team Providers Care Hydro Station Supervisor Name Role Phone Urbano Jimenez Ray KIRBY Primary Care Provider [phone] Reason for Visit * Reason Onset Date Comments Medication Refill 10/13/2022 Encounter Details Date Type Department Care Team (Late st Contact Info) Description 10/13/2022 Refill [place] [address] Tal Eagle MD [facility] [place] [address] H/O kidney transplant; Aftercare following organ transplant; Hypertension secondary to other renal disorders Social History Tobacco Use Types Packs/Day Years Used Date Smoking Tobacco: Light Smoker Cigars Smokeless Tobacco: Never Comments:cigars, one weekly Alcohol Use Standard Drinks/Week Comments No 0 (1 standard drink = 0.6 oz pur e alcohol) [facility] Inpatient Questions Answer Date Recorded Does Anyone [...] AM EST TH Visit (TeleHealth) Cardiology at [address] [phone] Byron Brown MD [facility] [place] [address] 07/14/2024 10:00 AM EST Hospital Encounter Non[place] [phone] Arrived documented as of this encounter Goals [...] disorders documented in this encounter Care Teams Hydro Station Supervisor Relationship Specialty Start Date End Date Urbano Jimenez DO [address] [place], [place] [address] [address] PCP - General Family Medicine 03/18/22 Ruchi Valles RN Nurse Clinic Transplant Surgery 07/30/15 documented as of this encounter
--- OUTSIDE RECORDS SUMMARY | 2024-05-16 17:16 | XMS_ITS | Encounter Summary ---
Author Organization [facility] Address [facility] [place] [address] Care Team Providers Care Elocution Teacher Name Role Phone Urbano Jimenez Ray KIRBY Primary Care Provider [phone] Reason for Visit * Reason Comments Medication Refill Encounter Details Date Type Department Care Team (Late st Contact Info) Description 03/27/2023 Refill Cardiology at [address] [address] Byron Brown MD [facility] [place] [address] Medication Refill Social History Tobacco Use Types [...] AM EST TH Visit (TeleHealth) Cardiology at [address] [address] Byron Brown MD [facility] [place] [address] 07/14/2024 10:00 AM EST Hospital Encounter Non-[place] [phone] Arrived documented as of this encounter Goals Goal Patient Goal Type Associated Problems Recent Progress Patient-Stated? Author [facility] Medication Compliance and Understanding Patient Facing Action Plan On track( 017 10:41 AM EDT) Selena Scott, [facility] Note: Patient Goal: Clear hepatitis C Timeframe to meet goal: within 12 weeks of therapy documented as of this encounter Visit Diagnoses Diagnosis Atrial fibrillation with RVR - had flutter initially, then fib Atrial fibrillation documented in this encounter Care Teams Elocution Teacher Relationship Specialty Start Date End Date Urbano Jimenez DO [address] [place] [address] PCP - General Family Medicine 03/18/22 Ruchi Valles RN Nurse Clinic Transplant Surgery 07/30/15 documented as of this encounter
--- OUTSIDE RECORDS SUMMARY | 2024-05-16 17:16 | XMS_ITS | Encounter Summary ---
Author Organization [facility] Address [facility] [place] [address] Care Team Providers Care Wheel Lacer And Truer Name Role Phone Urbano Jimenez Ray KIRBY Primary Care Provider [phone] Reason for Visit * Reason Onset Date Comments Medication Refill 05/29/2023 Encounter Details Date Type Department Care Team (Late st Contact Info) Description 05/29/2023 Refill [place] [address] Tal Eagle MD [facility] [place] [address] Prophylactic immunotherapy; H/O kidney transplant Social History [...] AM EST TH Visit (TeleHealth) Cardiology at [address] [phone] Byron Brown MD [facility] [place] [address] 07/14/2024 10:00 AM EST Hospital Encounter Non-[place]vasive [place] [phone] Arrived documented as of this encounter Goals [...] transplant documented in this encounter Care Teams Wheel Lacer And Truer Relationship Specialty Start Date End Date Urbano Jimenez DO [address] [place] [address] PCP - General Family Medicine 03/18/22 Ruchi Valles RN Nurse Clinic Transplant Surgery 07/30/15 documented as of this encounter
--- OUTSIDE RECORDS SUMMARY | 2024-05-16 17:16 | XMS_ITS | Encounter Summary ---
Author Organization [facility] Address [place] [address] Care Team Providers Care Educational Therapy Teacher Name Role Phone Urbano Jimenez DO Primary Care Provider [phone] Reason for Visit * Reason Comments Medication Refill Encounter Details Date Type Department Care Team (Late st Contact Info) Description 11/13/2022 Refill Solid [place] [address] Tal Eagle MD [facility] [place] [address] H/O kidney transplant; Aftercare following organ transplant; Other complication of kidney transplant; Vitamin D deficiency Social History Tobacco Use Types Packs/Day Years Used Date Smoking Tobacco: Light Smoker Cigars Smokeless Tobacco: Never Comments:cigars, one weekly Alcohol Use Standard Drinks/Week Comments No 0 (1 standard drink = 0.6 oz pur e alcohol) [facility] Inpatient Questions Answer Date Recorded Does [...] AM EST TH Visit (TeleHealth) Cardiology at [address] [phone] Byron Brown MD [facility] [address] 07/14/2024 10:00 AM EST Hospital Encounter Non-[place]vasive [place] [address] Arrived documented as of this [...] deficiency documented in this encounter Care Teams Educational Therapy Teacher Relationship Specialty Start Date End Date Urbano Jimenez DO [address] [place] [address] PCP - General Family Medicine 03/18/22 Ruchi Valles RN Nurse Clinic Transplant Surgery 07/30/15 documented as of this encounter
--- OUTSIDE RECORDS SUMMARY | 2024-05-16 17:16 | XMS_ITS | Encounter Summary ---
[place] [address] Care Team Providers Care Pattern Designer Name Role Phone Urbano Jimenez DO Primary Care Provider [phone] Reason for Referral * Diagnostic Test (Routine) - Closed Specialty Diagnoses / Procedures Referred By Humberto t Referred To Contact Cardiology Diagnoses Cardiomyopathy, unspecified type Procedures Echocardiogram Transthoracic Shaq Damon MD [facility] [place] [address] [facility] [place] [address] Referral ID Status Reason Start Date Expiration Date V isits Requested Visits Authorized [id number] Closed Specialty Service Requested 09/02/2022 09/02/2023 1 1 Reason for Visit * Diagnostic Test (Routine) - Closed Specialty Diagnoses / Procedures Referred By Humberto flor Referred To Contact Cardiology Diagnoses Cardiomyopathy, unspecified type Procedures Echocardiogram Transthoracic Shaq Damon MD [facility] [place] [address] [facility] [place] [address] Referral ID Status Reason Start Date Expiration Date V isits Requested Visits Authorized [id number] Closed Specialty Service Requested 09/02/2022 09/02/2023 1 1 Encounter Details Date Type Department Care Team (Late st Contact Info) Description 10/22/2022 11:44 AM EDT - 10/22/2022 11:59 PM EDT Hospital Encounter Non-Invasive Cardiology Lab [facility] [place] [address] Shaq Damon MD [facility] [place] [address] Cardiomyopathy, unspecified type Discharge Disposition: Home Social [...] transplant,Aftercare following organ transplant,Other complication of kidney transplant,prison current use of immunosuppressive drug TAKE 2 [...] AM EST TH Visit (TeleHealth) Cardiology at [address] [address] Shaq Damon MD [facility] [place] [address] 07/14/2024 10:00 AM EST Hospital Encounter Non-Invasive Cardiology Lab [facility] [place] [address] Arrived documented as of this encounter Goals [...] 1950 ? Height: 180 cm ? Account: [id number] Age: 72 yrs ? Weight: 101 kg Gender: Male ?BSA: 2.2 m2 Ordering Physician: SHAQ DAMON Referring Physician: SHAQ DAMON Performed By: Leila Max RDCS Reason For Study: Cardiomyopathy Exam Location: [facility]. Interpretation Summary 1. Left ventricular function is [...] 02/19/2022, LV function visually appears similar. Procedure Complete-81111. Left ventricular strain. Satisfactory quality. Left Ventricle [...] Location: : 1950 Height: 180 cm Account: [id number] Age: 72 yrs Weight: 101 kg Gender: Male BSA: 2.2 m2 Ordering Physician: SHAQ DAMON Referring Physician: SHAQ DAMON Performed By: Leila Max RDCS Reason For Study: Cardiomyopathy Exam Location: [facility]. Interpretation Summary 1. Left ventricular function is [...] echo 02/19/2022, LV function visually appearssimilar. Procedure Complete-[id number]. Left ventricular strain. Satisfactory quality. Left Ventricle [...] type documented in this encounter Care Teams Pattern Designer Relationship Specialty Start Date End Date Urbano Jimenez DO [address] [place] [address] PCP - General Family Medicine 03/18/22 Ruchi Valles RN Nurse Clinic Transplant Surgery 07/30/15 documented as of this encounter
--- OUTSIDE RECORDS SUMMARY | 2024-05-16 17:16 | XMS_ITS | Encounter Summary ---
Author Organization [facility] Address [facility] [place] [address] Care Team Providers Care Rat Exterminator Name Role Phone PerryUrbano boyd Ray KIRBY Primary Care Provider [phone] Reason for Visit * Reason Onset Date Comments Medication Refill 02/11/2023 Encounter Details Date Type Department Care Team (Late st Contact Info) Description 02/11/2023 Refill [place] [address] Tal Eagle MD [facility] [place] [address] Prophylactic immunotherapy; H/O kidney transplant Social History [...] AM EST TH Visit (TeleHealth) Cardiology at [address] [address] Byron Brown MD [facility] [place] [address] 07/14/2024 10:00 AM EST Hospital Encounter Non-[place] [phone] Arrived documented as of this encounter Goals [...] transplant documented in this encounter Care Teams Rat Exterminator Relationship Specialty Start Date End Date Urbano Jimenez DO [address] [place] [address] PCP - General Family Medicine 03/18/22 Ruchi Valles RN Nurse Clinic Transplant Surgery 07/30/15 documented as of this encounter
--- OUTSIDE RECORDS SUMMARY | 2024-05-16 17:16 | XMS_ITS | Encounter Summary ---
Author Organization [facility] [place] [address] Care Team Providers Care Plastics Tooling Engineer Name Role Phone Urbano Jimenez Ray KIRBY Primary Care Provider [phone] Encounter Details Date Type Department Care Team (Late st Contact Info) Description 01/01/2023 Telephone Solid [place] [address] Mara Kimble Social History Tobacco [...] EST TH Visit (TeleHealth) Cardiology at [address] [phone] Byron Brown MD [facility] [place] [address] 07/14/2024 10:00 AM EST Hospital Encounter Non-[place] [address] Arrived documented as of this [...] on filedocumented in this encounter Care Teams Plastics Tooling Engineer Relationship Specialty Start Date End Date Urbano Jimenez DO [address] [place] [address] PCP - General Family Medicine 03/18/22 Ruchi Valles RN Nurse Clinic Transplant Surgery 07/30/15 documented as of this encounter
--- OUTSIDE RECORDS SUMMARY | 2024-05-16 17:16 | XMS_ITS | Encounter Summary ---
Author Organization [facility] [place] [address] Care Team Providers Care Lead Inspector Name Role Phone PerrydebUrbano DO Primary Care Provider [phone] Encounter Details Date Type Department Care Team [...] 11:00 AM EST Visit (TeleHealth) Cardiology at [address] [address] Byron Brown MD [facility] [address] 07/14/2024 10:00 AM EST Hospital Encounter Non-[place] [address] Arrived documented as of this encounter Goals [...] filedocumented in this encounter Care Teams Lead Inspector Relationship Specialty Start Date End Date Urbano Jimenez DO [address] [place] [address] PCP - General Family Medicine 03/18/22 Ruchi Valles RN Nurse Clinic Transplant Surgery 07/30/15 documented as of this encounter
--- OUTSIDE RECORDS SUMMARY | 2024-05-16 17:16 | XMS_ITS | Encounter Summary ---
Author Organization 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; Vitamin D [...] AM EST TH Visit (TeleHealth) Cardiology at [address] [address] Byron Brown MD [facility] [place] [address] 07/14/2024 10:00 AM EST Hospital Encounter Non-Invasive Cardiology Lab [facility] [place] [address] Arrived documented as of this encounter Goals [...] 10/10/2022 9:02 AM EDT H/O kidney transplant retirement current use of immunosuppressive drug Vitamin D deficiency URINALYSIS WITH REFLEX CULTURE Routine 10/10/2022 9:02 AM EDT 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 Vitamin D deficiency BKV QUANT BLOOD Routine 10/10/2022 8:22 AM EDT H/O kidney transplant retirement current use of immunosuppressive drug Vitamin D deficiency HEMOGRAM Routine 10/10/2022 8:22 AM EDT H/O kidney transplant retirement current use of immunosuppressive drug Vitamin D deficiency DIFFERENTIAL, AUTOMATED Routine 10/10/2022 8:22 AM EDT H/O kidney transplant retirement current use of immunosuppressive drug Vitamin D deficiency HC FK-506 (TACROLIMUS) Routine 10/10/2022 8:22 AM EDT 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 Vitamin D deficiency HC RETIC,AUTO INCLUDES RETHE & IRF Routine 10/10/2022 8:22 AM EDT H/O kidney transplant retirement current use of immunosuppressive drug Vitamin D deficiency HC CBC,PLT & AUTO DIFF Routine 10/10/2022 8:22 AM EDT H/O kidney transplant retirement current use of immunosuppressive drug Vitamin D deficiency HC URIC ACID, SERUM Routine 10/10/2022 8 :22 AM EDT 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 Vitamin D deficiency HC PHOSPHORUS, SERUM Routine 10/10/2022 8:22 AM EDT H/O kidney transplant retirement current use of immunosuppressive drug Vitamin D deficiency HC MAGNESIUM, SERUM Routine 10/10/2022 8 :22 AM EDT H/O kidney transplant retirement current use of immunosuppressive drug Vitamin D deficiency LIPID PANEL (REFLEX DIRECT LDL) Routine 10/10/2022 8:22 AM EDT 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 Vitamin D deficiency COMPREHENSIVE METABOLIC PANEL Routine 10/10/2022 8:22 AM EDT H/O kidney transplant retirement current use of immunosuppressive drug Vitamin D deficiency documented in this encounter Results * Urinalysis Microscopic Exam (10/10/2022 9:02 AM EDT) RBC, Urine 1 0 - 3 /HPF [facility] WBC, Urine 1 0 - 3 /HPF [facility] Clean Catch Urine 10/10/2022 9:02 AM EDT 10/10/2022 9:08 AM EDT Narrative Resulting Agency Comment Spec In Lab Gurdeep Boston APRN URINE ORDERABLES [facility] [place] [address] * (ABNORMAL) Urinalysis with reflex Culture (10/10/2022 9:02 AM EDT) Glucose, Urine Dipstick Negative Negative mg/dL [facility] Protein, Urine Dipstick Trace(A) Negative mg/dL [facility] Bilirubin, Urine Dipstick Negative Negative mg/dL [facility] Comment: Clinical correlation required for positive Urine Bilirubin results as false positive may occur with some drugs and drug related products. If a false positive is suspected a serum total bilirubin should be considered if clinically indicated. Urobilinogen, Urine Dipstick Normal Normal mg/dL [facility] pH, Urn (dipstick) 7.0 5.0 - 8.0 [facility] Blood, Urine Dipstick Negative Negative mg/dL [facility] Ketone, Urine Dipstick Negative Negative mg/dL [facility] Nitrite, Urine Dipstick Negative Negative [facility] Leukocytes, Urine Dipstick Negative Negative mcL [facility] Appearance, Urine Dipstick Clear Clear [facility] Specific [place] Urine Automated 1.018 1.005 - 1.030 [facility] Color, Urine Dipstick Yellow Yellow [facility] Reflex to Culture No [facility] Clean Catch Urine 10/10/2022 9:02 AM EDT 10/10/2022 9:08 AM EDT Narrative Resulting Agency Comment Spec In Lab Gurdeep Boston SONOGRAPHY TECHNOLOGIST URINE ORDERABLES Performing Organization Address City/[facility]/ZIP Co de Phone Number [facility] [place] [address] * (ABNORMAL) Protein/Creatinine Ratio, urine (10/10/2022 9:02 AM EDT) Creatinine, Urine 86 mg/dL [facility] Protein, Urine 20(H) 0 - 12 mg/dL [facility] Protein / Creatinine Ratio, Urine 0.2 ratio [facility] Urine 10/10/2022 9:02 AM EDT 10/10/2022 9:08 AM EDT Narrative Resulting Agency Comment Spec In Lab Gurdeep L Bowling SONOGRAPHY TECHNOLOGIST URINE ORDERABLES Performing Organization Address City/[facility]/ZIP Co de Phone Number [facility] [place] [address] * (ABNORMAL) Differential, Automated (10/10/2022 8:22 AM EDT) Neutrophil % 61.5 % [facility] Neutrophil Absolute 5.49 1.70 - 6.10 x10(3)/[facility] Lymph % 18.9 % [facility] Lymphocytes Abs 1.7 0.9 - 3.2 x10(3)/[facility] Monocyte % 8.3 % [facility] Monocyte Abs 0.7 0.3 - 0.9 x10(3)/[facility] Eos % 10.1 % [facility] Eosinophils Abs 0.9(H) 0.0 - 0.4 x10(3)/[facility] Basophil % 1.0 % [facility] Baso Absolute 0.1 0.0 - 0.1 x10(3)/[facility] Immature Gran % 0.20 % [facility] Comment: Immature granulocytes(IG's)percentage and absolute count will include metamyelocytes, myelocytes, and promyelocytes. Blood smears from CBCs yielding IG's will be scanned manually for concordance. If this scan disagrees with the automated IG or if promyelocytes are noted, a manual differential will be performed. Immature Gran Absolute 0.02 0.00 - 0.04 x10(3)/[facility] Blood 10/10/2022 8:22 AM EDT 10/10/2022 8:26 AM EDT Narrative Resulting Agency Comment Spec In Lab Gurdeep Boston SONOGRAPHY TECHNOLOGIST HEMATOLOGY ORDERABLE S [facility] [place] [address] * (ABNORMAL) Hemogram (10/10/2022 8:22 AM EDT) White Blood Cell 8.9 4.0 - 9.5 x10(3)/[facility] Red Blood Cell 4.54(L) 4.58 - 5.54 x10(6)/[facility] Hemoglobin 13.8 13.7 - 16.5 g/dL [facility] Hematocrit 40.2(L) 40.5 - 48.5 % [facility] Mean Cell Volume 88.5 82.9 - 93.1 fL [facility] Mean Cell Hemoglobin 30.4 27.5 - 32.1 pg [facility] Mean Cell Hemoglobin Concentration 34.3 32.0 - 35.7 g/dL [facility] Platelet 275 145 - 357 x10(3)/mc L [facility] RDW Standard Deviation 42.9 36.0 - 45.0 fL [facility] RDW coefficient of variation 13.4 11.4 - 13.8 % [facility] Mean Platelet Volume 9.9 7.6 - 12.9 fL [facility] NRBC% auto 0.0 % [facility] NRBC Absolute 0.000 0.000 - 0.000 x10(3)/mc L [facility] Blood 10/10/2022 8:22 AM EDT 10/10/2022 8:26 AM EDT Narrative Resulting Agency Comment Spec In Lab Gurdeep Boston APRN HEMATOLOGY ORDERABLE S [facility] [place] [address] * BKV Quant Blood (10/10/2022 8:22 AM EDT) BKV Blood Result Not Detected Not Detected IU/mL [facility] Comment: Indication for Study: Monitoring BKV DNA Analysis: The ester BKV test is an in vitro nucleic acid amplification tests using real-time polymerase chain reaction (PCR) assay for the quantitative measurement of BK virus (BKV) DNA in human EDTA plasma. Sample: EDTA plasma Method: ester BKV test used with the Yebhi0 platform (Kirsten) Linear Range: 21.5 - 1.0 x 10^8 IU/mL (1.33 - 8.00 log IU/mL) Note: The Kirsten ester BKV assay has been cleared by the U.S. Food and Drug Administration for clinical testing. Blood 10/10/2022 8:22 AM EDT 10/10/2022 10:31 AM EDT Narrative Resulting Agency Comment Spec In Lab Gurdeep L Bowling SONOGRAPHY TECHNOLOGIST MOLECULAR ORDERABLES Performing Organization Address [facility]/ZIP Co de Phone Number [facility] [place] [address] * (ABNORMAL) Reticulocyte Count (10/10/2022 8:22 AM EDT) Reticulocyte % 2.6 0.7 - 2.6 % [facility] Retic Abs # 0.120 0.030 - 0.120 x10(6)/mcL [facility] Immature Retic% 17.8(H) 0.0 - 15.6 % [facility] Reticulated Hgb 34.4 31.3 - 40.2 pg [facility] Blood 10/10/2022 8:22 AM EDT 10/10/2022 8:26 AM EDT Narrative Resulting Agency Comment Spec In Lab Gurdeep Boston SONOGRAPHY TECHNOLOGIST HEMATOLOGY ORDERABLE S Performing Organization Address [facility] Co de Phone Number [facility] [place] [address] * (ABNORMAL) Comprehensive metabolic panel (non-fasting) (10/10/2022 8:22 AM EDT) Glucose 183 65 - 199 mg/dL [facility] Comment:Diabetes: >=200 mg/d L plus symptoms Blood Urea Nitrogen 15 10 - 20 mg/dL [facility] Creatinine 1.26 0.80 - 1.50 mg/dL [facility] Sodium 143 135 - 145 mmol/L [facility] Potassium 4.2 3.5 - 5.0 mmol/L [facility] Comment: Please note: ??Patients with WBC >100,000 may have falsely elevated Potassium levels. ??For accurate Potassium quantification in these patients send serum separator tube (gold top) for subsequent determinations. ??Contact the Clinical Chemistry Laboratory if there are any questions. Chloride 104 98 - 107 mmol/L [facility] Carbon Dioxide 28 22 - 31 mmol/L [facility] Anion Gap 11 5 - 15 mmol/L [facility] Calcium 9.9 8.5 - 10.5 mg/dL [facility] Protein, Total 7.2 6.1 - 8.0 g/dL [facility] Albumin 4.2 3.2 - 5.2 g/dL [facility] Aspartate Aminotransferase 22 0 - 39 unit/L [facility] Alanine Aminotransferase 22 0 - 55 unit/L [facility] Alkaline Phosphatase 84 40 - 130 unit/L [facility] Bilirubin, Total 2.0(H) 0.2 - 1.3 mg/dL [facility] Est Glomerular Filtration Rate 60 >=60 mL/min/1. 73 m?? [facility] Comment: This patient's estimated GFR was [...] Agency Comment Spec In Lab Gurdeep Boston SONOGRAPHY TECHNOLOGIST CHEMISTRY ORDERABLES Performing Organization Address City/State/[facility] Co de Phone Number [facility] [place] [address] * Lipid Panel (Reflex Direct LDL) (10/10/2022 8:22 AM EDT) Cholesterol, Total 99 mg/dL [facility] Comment: Lower Risk: <200 mg/dL Average Risk: 200-239 mg/dL Higher Risk: >uc=674 mg/dL Triglyceride 197 mg/dL [facility] Comment: Average Risk/Lower Risk: <150 mg/dL Borderline High Risk: 150-199 mg/dL High Risk: 200-499 mg/dL Very High Risk: >iy=968 mg/dL HDL Cholesterol 35 mg/dL [facility] Comment: Males: ?? Higher Risk: <40 mg/dL Females: ?? Higher Risk: <50 mg/dL LDL Cholesterol 25 mg/dL [facility] Comment: Lowest Risk: <100 mg/dL Lower Risk: 100-129 mg/dL Borderline High Risk: 130-159 mg/dL High Risk: 160-189 mg/dL Very High Risk: >in=697 mg/dL Cholesterol/HDL Ratio 2.8 ratio [facility] Lipid Interpretation See Note [facility] Comment: Lipid management should be guided by a patient? s ASCVD risk, goals and preferences. ACC/AHA Guidelines recommend high intensity statin if clinical ASCVD or LDL greater than or equal to 190 mg/dL. http://[employer].com/SRB-CYF-Oxsbmnoms Adults aged 40-75 with LDL 70-189 mg/dL should have their 10 year ASCVD risk estimated with the ACC/AHA ASCVD risk printing estimator http://tools.acc.org/UGZXX-Firv-Aonoqbtcy/ Statin should be discussed if risk greater [...] Agency Comment Spec In Lab Gurdeep Boston SONOGRAPHY TECHNOLOGIST CHEMISTRY ORDERABLES [facility] [place] [address] * Phosphorus (10/10/2022 8:22 AM EDT) Phosphorus 2.5 2.5 - 4.5 mg/dL [facility] Blood 10/10/2022 8:22 AM EDT 10/10/2022 8:26 AM EDT Narrative Resulting Agency Comment Spec In Lab Gurdeep Boston SONOGRAPHY TECHNOLOGIST CHEMISTRY ORDERABLES [facility] [place] [address] * (ABNORMAL) Magnesium (10/10/2022 8:22 AM EDT) Magnesium 0.64(L) 0.69 - 1.07 mmol/L [facility] Blood 10/10/2022 8:22 AM EDT 10/10/2022 8:26 AM EDT Narrative Resulting Agency Comment Spec In Lab Gurdeep Boston SONOGRAPHY TECHNOLOGIST CHEMISTRY ORDERABLES Performing Organization Address City/[facility] Co de Phone Number [facility] [place] [address] * Uric acid (10/10/2022 8:22 AM EDT) Uric Acid 6.4 3.5 - 8.5 mg/dL [facility] Blood 10/10/2022 8:22 AM EDT 10/10/2022 8:26 AM EDT Narrative Resulting Agency Comment Spec In Lab Gurdeep Boston SONOGRAPHY TECHNOLOGIST CHEMISTRY ORDERABLES Performing Organization Address [facility] Co de Phone Number [facility] [place] [address] * Tacrolimus level (10/10/2022 8:22 AM EDT) Tacrolimus 6.2 ng/mL 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
--- OUTSIDE RECORDS SUMMARY | 2024-05-16 17:16 | XMS_ITS | Encounter Summary ---
Author Organization Formerly [facility] Address [facility] [place] [address] Care Team Providers Care Service Desk Specialist Name Role Phone Perrydeb Urbano Bell DO Primary Care Provider [phone] Encounter Details Date Type Department Care Team (Late st Contact Info) Description 10/22/2022 2:30 PM EDT Office Visit Cardiology at [address] [address] Byron Brown MD [facility] [place] [address] Cardiomyopathy, unspecified type Social History Tobacco Use Types Packs/Day Years Used Date Smoking Tobacco: Light Smoker Cigars Smokeless Tobacco: Never Comments:cigars, one weekly Alcohol Use Standard Drinks/Week Comments No 0 (1 standard drink = 0.6 oz pur e alcohol) [facility] Inpatient Questions Answer Date Recorded Does Anyone [...] Brown MD - 10/22/2022 2:30 PM EDT [facility] [place] [address] CARDIOLOGY/ VASCULAR OUTPATIENT NOTE Cody Bolden Urbano [...] his had an 8-unit apartment building in [facility] that they just sold. He used [...] 1 year or prn Byron Brown MD, [facility] Cardiovascular Medicine [facility] [address] Clinic [phone] Clinic Team Nurse: [phone] Estimated time : 30 minutes total time in review of lab tests, evaluation, education of suggested medication, ordering medications and tests, communicating care coordination, and documentation of my findings and recommendations. documented in this encounter Plan of Treatment Upcoming Encounters Date Type Department Care Team (Late st Contact Info) Description 06/22/2024 11:00 AM EST Visit (TeleHealth) Cardiology at [address] [phone] Byron Brown MD [facility] [place] [address] 07/14/2024 10:00 AM EST Hospital Encounter Non-[place] [phone] Arrived documented as of this encounter Goals Goal Patient Goal Type Associated Problems Recent Progress Patient-Stated? Author [facility] Medication Compliance and Understanding Patient Facing Action Plan On track( 017 10:41 AM EDT) No Selena Cisneros, [facility] Note: Patient Goal: Clear hepatitis C Timeframe to meet goal: within 12 weeks of therapy documented as of this encounter Visit Diagnoses Diagnosis Cardiomyopathy, unspecified type documented in this encounter Care Teams Service Desk Specialist Relationship Specialty Start Date End Date Urbano Jimenez DO [address] [place] [address] PCP - General Family Medicine 03/18/22 Ruchi Valles RN Nurse Clinic Transplant Surgery 07/30/15 documented as of this encounter
--- OUTSIDE RECORDS SUMMARY | 2024-05-16 17:16 | XMS_ITS | Encounter Summary ---
Author Organization [facility] [address] Care Team Providers Care Process Operator Name Role Phone Perrydeb Urbano Bell DO Primary Care Provider [phone] Encounter Details Date Type Department Care Team (Latest Contact Info) Description 10/10/2022 12:00 PM EDT Office [place] [address] Cathie Yeager MD [facility] [place] [address] History of diverticulitis Social History Tobacco Use Types Packs/Day Years Used Date Smoking Tobacco: Light Smoker Cigars Smokeless Tobacco: Never Comments:cigars, one weekly Alcohol Use Standard Drinks/Week Comments No 0 (1 standard drink = 0.6 oz pur e alcohol) [facility] Inpatient Questions Answer Date Recorded [...] history of HTN, DM, CAD s/p PCI, tachy/skaina syndrome s/p PPM, Afib s/p Watchman procedure, hx basal ganglia hemorrhage, hx embolic stroke, hypothyroidism, BPH, ESRD s/p DDKT in 2015, who presented to [facility] on 09/14 due to diverticulitis with microperforation. [...] 11:00 AM EST Visit (TeleHealth) Cardiology at [address] [address] Byron Brown MD [facility] [place] [address] 07/14/2024 10:00 AM EST Hospital Encounter Non-[place] [phone] Arrived documented as of this encounter Goals [...] diverticulitis documented in this encounter Care Teams Process Operator Relationship Specialty Start Date End Date Urbano Jimenez DO [address] [place] [address] PCP - General Family Medicine 03/18/22 Ruchi Valles RN Nurse Clinic Transplant Surgery 07/30/15 documented as of this encounter
--- OUTSIDE RECORDS SUMMARY | 2024-05-16 17:16 | XMS_ITS | Encounter Summary ---
Author Organization [facility] [place] [address] Care Team Providers Care Distribution Sales Manager Name Role Phone Urbano Jimenez DO Primary Care Provider [phone] Reason for Visit * Reason Comments Medication Refill Encounter Details Date Type Department Care Team (Late st Contact Info) Description 06/05/2023 Refill [place] [address] Gurdeep Boston [employer] [facility] [place] [address] H/O kidney transplant; Aftercare following organ transplant; Other complication of kidney transplant; FDC current use of immunosuppressive drug Social History Tobacco Use Types Packs/Day Years Used Date Smoking Tobacco: Light Smoker Cigars Smokeless Tobacco: Never Comments:cigars, one weekly Alcohol Use Standard Drinks/Week Comments No 0 (1 standard drink = 0.6 oz pur e alcohol) [facility] Inpatient Questions Answer Date Recorded Does [...] EST TH Visit (TeleHealth) Cardiology at [address] [phone] Byron Brown MD [facility] [place] [address] 07/14/2024 10:00 AM EST Hospital Encounter Non-[place] [phone] Arrived documented as of this encounter Goals [...] drug documented in this encounter Care Teams Distribution Sales Manager Relationship Specialty Start Date End Date Urbano Jimenez DO [address] [place] [address] PCP - General Family Medicine 03/18/22 Ruchi Valles RN Nurse Clinic Transplant Surgery 07/30/15 documented as of this encounter
--- OUTSIDE RECORDS SUMMARY | 2024-05-16 17:16 | XMS_ITS | Encounter Summary ---
Author Organization [facility] [place] [address] Care Team Providers Care Tanbark Peeler Name Role Phone PerrydebUrbano DO Primary Care Provider [phone] Encounter Details Date Type Department Care Team (Latest Contact Info) Description 10/10/2022 Travel Social History Tobacco Use Types Packs/Day Years Used Date Smoking Tobacco: Light Smoker Cigars Smokeless Tobacco: Never Comments:cigars, one weekly Alcohol Use Standard Drinks/Week Comments No 0 (1 standard drink = 0.6 oz pur e alcohol) [facility] Inpatient Questions Answer Date [...] 11:00 AM EST Visit (TeleHealth) Cardiology at [address] [address] Byron Brown MD [facility] [place] [address] 07/14/2024 10:00 AM EST Hospital Encounter Non-Invasive [place] [address] Arrived documented as of this encounter Goals [...] on filedocumented in this encounter Care Teams Tanbark Peeler Relationship Specialty Start Date End Date Urbano Jimenez DO [address] [place] [address] PCP - General Family Medicine 03/18/22 Ruchi Valles RN Nurse Clinic Transplant Surgery 07/30/15 documented as of this encounter
--- OUTSIDE RECORDS SUMMARY | 2024-05-16 17:16 | XMS_ITS | Encounter Summary ---
Author Organization [facility] Address [facility] [place] [address] Care Team Providers Care Animal Husbandry Professor Name Role Phone Urbano Jimenez Ray KIRBY Primary Care Provider [phone] Reason for Visit * Reason Onset Date Comments Medication Refill 05/26/2023 Encounter Details Date Type Department Care Team (Late st Contact Info) Description 05/26/2023 Refill [place] [address] Tal Eagle MD [facility] [place] [address] H/O kidney transplant; Aftercare following organ transplant; Other complication of kidney transplant; Vitamin D deficiency Social History Tobacco Use Types Packs/Day Years Used Date Smoking Tobacco: Light Smoker Cigars Smokeless Tobacco: Never Comments:cigars, one weekly Alcohol Use Standard Drinks/Week Comments No 0 (1 standard drink = 0.6 oz pur e alcohol) [facility] Inpatient Questions Answer Date Recorded [...] AM EST TH Visit (TeleHealth) Cardiology at [address] [phone] Byron Brown MD [facility] [place] [place] [address] 07/14/2024 10:00 AM EST Hospital Encounter Non-[place] [address] Arrived documented as of this encounter Goals [...] deficiency documented in this encounter Care Teams Animal Husbandry Professor Relationship Specialty Start Date End Date Urbano Jimenez DO [address] [place] [address] PCP - General Family Medicine 03/18/22 Ruchi Valles RN Nurse Clinic Transplant Surgery 07/30/15 documented as of this encounter
--- OUTSIDE RECORDS SUMMARY | 2024-05-16 17:16 | XMS_ITS | Encounter Summary ---
Author Organization [facility] Address [facility] [place] [address] Care Team Providers Care Oracle Endeca Consultant Name Role Phone Urbano Jimenez Ray KIRBY Primary Care Provider [phone] Reason for Visit * Reason Onset Date Comments Medication Refill 05/26/2023 Encounter Details Date Type Department Care Team (Late st Contact Info) Description 05/26/2023 Refill Cardiology at [address] [address] Byron Brown MD [facility] [place] [address] Medication Refill Social History Tobacco Use Types [...] AM EST TH Visit (TeleHealth) Cardiology at [address] [address] Byron Brown MD [facility] [place] [address] 07/14/2024 10:00 AM [facility] Hospital Encounter Non-[place]vasive [place] [address] Arrived documented as of this [...] Coronary atherosclerosis of unspecified type of vessel, [place] or graft documented in this encounter Care Teams Oracle Endeca Consultant Relationship Specialty Start Date End Date Urbano Jimenez DO [address] [place] [address] PCP - General Family Medicine 03/18/22 Ruchi Valles RN Nurse Clinic Transplant Surgery 07/30/15 documented as of this encounter
--- OUTSIDE RECORDS SUMMARY | 2024-05-16 17:16 | XMS_ITS | Encounter Summary ---
Author Organization [facility] [place] [address] Care Team Providers Care Manager Consumer Name Role Phone Urbano Jimenez Ray KIRBY Primary Care Provider [phone] Encounter Details Date Type Department Care Team (Late st Contact Info) Description 04/03/2023 External Results Solid [place] [address] Social History Tobacco Use Types Packs/Day Years Used Date Smoking Tobacco: Light Smoker Cigars Smokeless Tobacco: Never Comments:cigars, one weekly Alcohol Use Standard Drinks/Week Comments No 0 (1 standard drink = 0.6 oz pur e alcohol) [facility] Inpatient Questions Answer Date Recorded Does Anyone [...] EST TH Visit (TeleHealth) Cardiology at [address] [phone] Byron Brown MD [facility] [address] 07/14/2024 10:00 AM EST Hospital Encounter Non-[place] [phone] Arrived documented as of this encounter Goals [...] Procedure Name Priority Date/Time Associated Diagnosis Comments [facility]TERNAL [place] PANEL Routine 03/26/2023 2:43 PM EDT documented in this encounter Results * [facility] [place] Panel (03/26/2023 2:43 PM EDT) Historical Provider POINT OF CARE BOBY T ORDERABLES documented in this encounter Visit Diagnoses Not on filedocumented in this encounter Care Teams Manager Consumer Relationship Specialty Start Date End Date Urbano Jimenez DO [address] [place] [address] PCP - General Family Medicine 03/18/22 Ruchi Valles RN Nurse Clinic Transplant Surgery 07/30/15 documented as of this encounter
--- OUTSIDE RECORDS SUMMARY | 2024-05-16 17:16 | XMS_ITS | Encounter Summary ---
[place] [address] Care Team Providers Care Baseball Umpire For Little League Name Role Phone Urbano Jimenez DO Primary Care Provider [phone] Encounter Details Date Type Department Care Team (Latest Contact Info) Description 04/21/2023 10:00 AM EDT - 04/21/2023 11:59 PM EDT Hospital Encounter Non-[place] [address] Discharge Disposition: Home Social History Tobacco Use Types Packs/Day Years Used Date Smoking Tobacco: Light Smoker Cigars Smokeless Tobacco: Never Comments:cigars, one weekly Alcohol Use Standard Drinks/Week Comments No 0 (1 standard drink = 0.6 oz pur e alcohol) [facility] Inpatient Questions Answer Date Recorded Does [...] transplant,Aftercare following organ transplant,Other complication of kidney transplant,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 450 tablet 2 09/01/2022 06/05/2023 documented as of this encounter Plan of Treatment Upcoming Encounters Date Type Department Care Team (Late st Contact Info) Description 06/22/2024 11:00 AM EST TH Visit (TeleHealth) Cardiology at [address] [phone] Byron Brown MD [facility] [place] [address] 07/14/2024 10:00 AM EST Hospital Encounter Non-[place] [address] Arrived documented as of this [...] on filedocumented in this encounter Care Teams Baseball Umpire For Little League Relationship Specialty Start Date End Date Urbano Jimenez DO [address] [place] [address] PCP - General Family Medicine 03/18/22 Ruchi Valles RN Nurse Clinic Transplant Surgery 07/30/15 documented as of this encounter
--- OUTSIDE RECORDS SUMMARY | 2024-05-16 17:16 | XMS_ITS | Encounter Summary ---
Author Organization [facility] Address [facility] [place] [address] Care Team Providers Care Digital Developer Name Role Phone Urbano Jimenez DO Primary Care Provider [phone] Encounter Details Date Type Department Care Team (Latest Contact Info) Description 10/10/2022 10:00 AM EDT Office Visit [place] [address] Tal Eagle MD [facility] [place] [address] H/O kidney transplant; Aftercare following organ transplant; Other complication of kidney transplant; Prophylactic immunotherapy; 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 Cortés) and diverticulitis 03/2021 (see [facility]). He has no residual defects. Has [...] hepatitis) 08/25/2016 ??? Prophylactic immunotherapy 09/22/2016 ??? penitentiary current use of immunosuppressive drug 09/22/2016 ??? [...] 0.17) performed by Joseph Ang MD at [facility] MAIN OR ? ? PRG DAVEY REAL TIME IMG 2D W PRB IMG ACQUIS I&R N/A 07/15/2022 TRANSESOPHAGEAL ECHOCARDIOGRAM (WRVU 2.55) performed by Ruchi Park MD at [facility] MAIN OR ??? PRO ANASTOMOSIS, AV, ANY SITE Left 05/09/2015 AV FISTULA CREATION, DIRECT HEMODIALYSIS, ANY SITE, EG ASHWINI FISTULA UPPER EXTREMITY performed by Que Amaro MD at [facility] OR ? ? PRO ARTHROPLASTY KNEE CONDYLE & PLATEAU MEDIAL & LAT COMPARTMENTS Right 11/25/2017 TOTAL KNEE ARTHROPLASTY (WRVU 20.72) performed by Breezy Dale MD at [facility] OR ??? PRO CYSTOURETHROSCOPY, URETER CATHETER Left 06/17/2018 CYSTO, RETROGRADE, URETEROPYELOGRAPHY (WRVU 2.37) [facility] Edinson Grider III[facility] ??? PRO LAMINEC/FACETECT/FORAMIN, LUMBAR 1 SEG N/A 05/10/2020 LAMINECTOMY, FACETECTOMY & FORAMINOTOMY,LUMBAR, ONE LEVEL (WRVU 15.37) performed by Joseph Ang MD at [facility] OR ??? PRO LAMINOTOMY, LUMBAR DISK, 1 INTRSP N/A 05/10/2020 LAMINOTOMY, DECOMPRESSION, FORAMINOTOMY, LUMBAR (WRVU 13.18) performed by Joseph Ang MD at [facility] OR ??? PRO MICROSURG TECHNIQUES, REQ OPER MICROSCOPE N/A 05/10/2020 MICROSCOPE USE (WRVU 3.46) performed by Joseph Ang MD at [facility] OR ??? PRO PERQ CLSR TCAT L ATR APNDGE W/ENDOCARDIAL IMPLNT N/A 05/08/2022 @PERQ TRANSCATH CLOSURE LEFT ATRIAL APPENDAGE W ENDOCARDIAL IMPLANT, INC RAD S&I (WRVU 14) performed by Tal Diana MD at [facility] CATH LABS ??? PRO REIMPLANT URETER, SINGLE URETER Left 05/20/2016 @URETERONEOCYSTOSTOMY ANASTOMOSIS OF SINGLE URETER TO BLADDER performed by Santosh Arredondo MD at [facility] OR ??? PRO REIMPLANT URETER, SINGLE URETER N/A 05/20/2016 @URETERONEOCYSTOSTOMY ANASTOMOSIS OF SINGLE URETER TO BLADDER performed by Que Amaro MD at [facility] OR ??? PRO TRANSPLANT, PREP CADAVER RENAL GRAFT N/A 09/16/2015 @PREPARATION CADAVERIC RENAL ALLOGRAFT performed by Franko Larkin MD at [facility] OR ??? PRO TRANSPLANTATION OF KIDNEY N/A 09/16/2015 @KIDNEY TRANSPLANT, WITHOUT RECIPIENT NEPHRECTOMY performed by Franko Larkin MD at [facility] MAIN OR ??? TISSUE TRANSFER kidney ??? US RENAL TRANSPLANT LEFT Left 01/31/2019 US Renal Transplant Left 01/31/[address] [facility] RAD ULTRASOUND ??? US RENAL TRANSPLANT LEFT Left 02/07/2019 US Renal Transplant Left 02/07/[address] [facility] RAD ULTRASOUND ?? Current Outpatient Medications: [...] Vaccine, Unspecified Formulation 04/24/2022 ??? Moderna Covid-19 (Fashion Journalist 100mcg) Vaccine 09/05/2020, 10/03/2020, 05/11/2021 ??? Pfizer [...] for diabetics, every 5 for non diabetics [place] kidney ultrasound looking for renal cell CA, [...] from 10/10/2022 in Solid Organ Transplant at [facility] Weight 100.9 kg (222 lb 6.4 oz) [...] Negative mcL Appearance UA Clear Clear Spec [place] UA 1.018 1.005 - 1.030 Color UA [...] Cellcept 250 mg bid ?? Proteinuria Likely [place] kidney involvement, no nephrosis ? PO4/Mg - Magnesium??gluconate [id number] TID ?? Erythrocytosis -??cont' to observe No [...] enzymes in past TB then 2.5 ? [id number] labs f/u 12 months ?? ? Discussion with the patient and/or family concerned the following: ?Diagnostic results or recommended studies ?Prognosis; ?Risks and benefits of management; ?Instructions for management; ?Compliance with treatment; ?Risk factor reduction; ?Patient and family education. ? Total time?25 of 30 min??in direct face to face psychologist counseling. 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
--- OUTSIDE RECORDS SUMMARY | 2024-05-16 17:16 | XMS_ITS | Encounter Summary ---
Author Organization [facility] Address [facility] [place] [address] Care Team Providers Care Foundry Melt Supervisor Name Role Phone Urbano Jimenze Ray KIRBY Primary Care Provider [phone] Reason for Visit * Reason Comments Medication Refill Encounter Details Date Type Department Care Team (Late st Contact Info) Description 02/09/2023 Refill Cardiology at [address] [address] Byron Brown MD [facility] [place] [address] Medication Refill Social History Tobacco Use Types [...] AM EST TH Visit (TeleHealth) Cardiology at [address] [address] Byron Brown MD [facility] [address] 07/14/2024 10:00 AM EST Hospital Encounter Non-Invasive [place] [address] Arrived documented as of this [...] Coronary atherosclerosis of unspecified type of vessel, [place] or graft documented in this encounter Care Teams Foundry Melt Supervisor Relationship Specialty Start Date End Date Urbano Jimenez DO [address] [place] [address] PCP - General Family Medicine 03/18/22 Ruchi Valles RN Nurse Clinic Transplant Surgery 07/30/15 documented as of this encounter
--- OUTSIDE RECORDS SUMMARY | 2024-05-16 17:16 | XMS_ITS | Encounter Summary ---
Author Organization [facility] [place] [address] Care Team Providers Care Human Resources Operations Director Name Role Phone TonyUrbano DO Primary Care Provider [phone] Encounter Details Date Type Department Care Team (Late st Contact Info) Description 09/20/2022 Telephone [place] [phone] Noelle Hoffman MD [facility] [place] [address] Social History Tobacco Use Types Packs/Day Years [...] Augmentin although says went to [facility] in [place], [place] in the system, the prescription was actually sent to [facility] order so the [facility] pharmacy does not have the order to fill his Augmentin. From eDH I can see the Augmentin WAS sent to the [facility] pharmacy. I called [facility] in [place], [place] directly. There is an issue withprocessing [...] AM EST TH Visit (TeleHealth) Cardiology at [address] [address] Byron Brown MD [facility] [place] [address] 07/14/2024 10:00 AM EST Hospital Encounter Non-[place] [address] Arrived documented as of this encounter Goals Goal Patient Goal Type Associated Problems Recent Progress Patient-Stated? Author [facility] Medication Compliance and Understanding Patient Facing Action Plan On track( 017 10:41 AM EDT) No Selena Cisneros, [facility] Note: Patient Goal: Clear hepatitis C Timeframe to meet goal: within 12 weeks of therapy documented as of this encounter Visit Diagnoses Not on filedocumented in this encounter Care Teams Human Resources Operations Director Relationship Specialty Start Date End Date Urbano Jimenez DO [address] [place] [address] PCP - General Family Medicine 03/18/22 Ruchi Valles RN Nurse Clinic Transplant Surgery 07/30/15 documented as of this encounter
--- OUTSIDE RECORDS SUMMARY | 2024-05-16 17:16 | XMS_ITS | Encounter Summary ---
[place] [address] Care Team Providers Care Writer Editor Name Role Phone Urbano Jimenez DO Primary Care Provider [phone] Encounter Details Date Type Department Care Team (Latest Contact Info) Description 01/21/2023 10:00 AM EDT - 01/21/2023 11:59 PM EDT Hospital Encounter Non-[place] [address] Discharge Disposition: Home Social History Tobacco Use Types Packs/Day Years Used Date Smoking Tobacco: Light Smoker Cigars Smokeless Tobacco: Never Comments:cigars, one weekly Alcohol Use Standard Drinks/Week Comments No 0 (1 standard drink = 0.6 oz pur e alcohol) [facility] Inpatient Questions Answer Date Recorded Does Anyone [...] transplant,Aftercare following organ transplant,Other complication of kidney transplant,meterman current use of immunosuppressive drug TAKE 2 [...] AM EST TH Visit (TeleHealth) Cardiology at [address] [phone] Byron Brown MD [facility] [place] [address] 07/14/2024 10:00 AM EST Hospital Encounter Non-[place] [address] Arrived documented as of this [...] on filedocumented in this encounter Care Teams Writer Editor Relationship Specialty Start Date End Date Urbano Jimenez DO [address] [place] [address] PCP - General Family Medicine 03/18/22 Ruchi Valles RN Nurse Clinic Transplant Surgery 07/30/15 documented as of this encounter
--- OUTSIDE RECORDS SUMMARY | 2024-05-16 17:16 | XMS_ITS | Encounter Summary ---
[place] [address] Care Team Providers Care Dog Pound Attendant Name Role Phone Urbano Jimenez DO Primary Care Provider [phone] Encounter Details Date Type Department Care Team (Latest Contact Info) Description 10/23/2022 10:00 AM EDT - 10/23/2022 11:59 PM EDT Hospital Encounter Non-[place] [address] Discharge Disposition: Home Social History Tobacco Use [...] transplant,Aftercare following organ transplant,Other complication of kidney transplant,jail current use of immunosuppressive drug TAKE 2 [...] AM EST TH Visit (TeleHealth) Cardiology at [address] [phone] Byron Brown MD [facility] [place] [address] 07/14/2024 10:00 AM EST Hospital Encounter Non-[place] [address] Arrived documented as of this encounter Goals [...] filedocumented in this encounter Care Teams Dog Pound Attendant Relationship Specialty Start Date End Date Urbano Jimenez DO [address] [place] [address] PCP - General Family Medicine 03/18/22 Ruchi Valles RN Nurse Clinic Transplant Surgery 07/30/15 documented as of this encounter
--- OUTSIDE RECORDS SUMMARY | 2024-05-16 17:17 | XMS_ITS | Encounter Summary ---
Author Organization [facility] [place] [address] Care Team Providers Care Manager Ems Name Role Phone Urbano Jimenez Ray KIRBY Primary Care Provider [phone] Reason for Visit * Reason Onset Date Comments Bumped Appointment 08/18/2022 Encounter Details Date Type Department Care Team (Late st Contact Info) Description 08/18/2022 Telephone [place] [address] Breezy Dale MD [facility] [place] [address] Bumped Appointment Social History Tobacco Use Types [...] AM EST TH Visit (TeleHealth) Cardiology at [address] [phone] Byron Brown MD [facility] [place] [address] 07/14/2024 10:00 AM EST Hospital Encounter Non[place] [address] Arrived documented as of this encounter Goals [...] filedocumented in this encounter Care Teams Manager Ems Relationship Specialty Start Date End Date Urbano Jimenez DO [address] [place] [address] PCP - General Family Medicine 03/18/22 Ruchi Valles RN Nurse Clinic Transplant Surgery 07/30/15 documented as of this encounter
--- OUTSIDE RECORDS SUMMARY | 2024-05-16 17:17 | XMS_ITS | Encounter Summary ---
Author Organization [facility] [place] [address] Care Team Providers Care Partner Manager Name Role Phone Urbano Jimenez Ray KIRBY Primary Care Provider [phone] Encounter Details Date Type Department Care Team [...] AM EST TH Visit (TeleHealth) Cardiology at [address] [phone] Byron Brown MD [facility] [place] [address] 07/14/2024 10:00 AM EST Hospital Encounter Non-[place] [address] Arrived documented as of this encounter Goals Goal Patient Goal Type Associated Problems Recent Progress Patient-Stated? Author [facility] Medication Compliance and Understanding Patient Facing Action Plan On track( 017 10:41 AM EDT) No Selena Cisneros RPH Note: Patient Goal: Clear hepatitis C Timeframe to meet goal: within 12 weeks of therapy documented as of this encounter Visit Diagnoses Not on filedocumented in this encounter Care Teams Partner Manager Relationship Specialty Start Date End Date Urbano Jimenez DO [address] [place] [address] PCP - General Family Medicine 03/18/22 Ruchi Valles RN Nurse Clinic Transplant Surgery 07/30/15 documented as of this encounter
--- OUTSIDE RECORDS SUMMARY | 2024-05-16 17:17 | XMS_ITS | Encounter Summary ---
Author Organization [facility] [place] [address] Care Team Providers Care Data Network Architect Name Role Phone Urbano Jimenez DO Primary Care Provider [phone] Encounter Details Date Type Department Care Team (Latest Contact Info) Description 05/23/2022 8:40 AM EST Laboratory Appointment Lab [address] [place] [phone] H/O kidney transplant; Vitamin D deficiency; shelter current use of immunosuppressive drug Social [...] EST TH Visit (TeleHealth) Cardiology at [address] [phone] Byron Brown MD [facility] [place] [address] 07/14/2024 10:00 AM EST Hospital Encounter Non-Invasive [place] [address] Arrived documented as of this encounter Goals [...] EST H/O kidney transplant Vitamin D deficiency shelter current use of immunosuppressive drug HEMOGRAM STAT 05/23/2022 9:10 AM EST H/O kidney transplant Vitamin D deficiency shelter current use of immunosuppressive drug DIFFERENTIAL, AUTOMATED STAT 05/23/2022 9:10 AM EST H/O kidney transplant Vitamin D deficiency shelter current use of immunosuppressive drug HC FK-506 (TACROLIMUS) STAT 05/23/2022 9:10 AM EST H/O kidney transplant Vitamin D deficiency 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 HC RETIC,AUTO INCLUDES RETHE & IRF STAT 05/23/2022 9:10 AM EST H/O kidney transplant Vitamin D deficiency shelter current use of immunosuppressive drug HC CBC,PLT & AUTO DIFF STAT 05/23/2022 9:10 AM EST H/O kidney transplant Vitamin D deficiency shelter current use of immunosuppressive drug HC URIC ACID, SERUM STAT 05/23/2022 9 :04 AM EST H/O kidney transplant Vitamin D deficiency shelter current use of immunosuppressive drug HC PHOSPHORUS, SERUM STAT 05/23/2022 9:04 AM EST H/O kidney transplant Vitamin D deficiency shelter current use of immunosuppressive drug HC MAGNESIUM, SERUM STAT 05/23/2022 9 :04 AM EST H/O kidney transplant Vitamin D deficiency shelter current use of immunosuppressive drug HC CHOLESTEROL STAT 05/23/2022 9:04 AM EST H/O kidney transplant Vitamin D deficiency 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 HC VENIPUNCTURE STAT 05/23/2022 9:04 AM EST H/O kidney transplant Vitamin D deficiency 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 Lymphocytes Abs 1.7 0.9 - 3.2 x10(3)/[facility] Monocyte % 7.3 % [facility] Monocyte Abs 0.6 0.3 - 0.9 x10(3)/[facility] Eos % 2.9 % [facility] Eosinophils Abs 0.2 0.0 - 0.4 x10(3)/[facility] Basophil % 0.7 % [facility] Baso Absolute 0.1 0.0 - 0.1 x10(3)/[facility] Immature Gran % 0.20 % [facility] Comment: Immature granulocytes(IG's)percentage and absolute count will include metamyelocytes, myelocytes, and promyelocytes. Blood smears from CBCs yielding IG's will be scanned manually for concordance. If this scan disagrees with the automated IG or if promyelocytes are noted, a manual differential will be performed. Immature Gran Absolute 0.02 0.00 - 0.04 x10(3)/mcL [facility] Blood 05/23/2022 9:10 AM EST 05/23/2022 9:17 AM EST Narrative Resulting Agency Comment Spec In Lab Tal Eagle MD HEMATOLOGY ORDERA BLES [facility] [place] [address] * (ABNORMAL) Hemogram (05/23/2022 9:10 AM EST) White Blood Cell 8.6 4.0 - 9.5 x10(3)/mc L [facility] Red Blood Cell 4.57(L) 4.58 - 5.54 x10(6)/ L [facility] Hemoglobin 13.7 13.7 - 16.5 g/dL [facility] Hematocrit 41.7 40.5 - 48.5 % [facility] Mean Cell Volume 91.2 82.9 - 93.1 fL [facility] Mean Cell Hemoglobin 30.0 27.5 - 32.1 pg [facility] Mean Cell Hemoglobin Concentration 32.9 32.0 - 35.7 g/dL [facility] Platelet 305 145 - 357 x10(3)/ L [facility] RDW Standard Deviation 41.8 36.0 - 45.0 [facility] RDW coefficient of variation 12.8 11.4 - 13.8 % [facility] Mean Platelet Volume 9.0 7.6 - 12.9 fL [facility] NRBC% auto 0.0 % [facility] NRBC Absolute 0.000 0.000 - 0.000 x10(3)/ L [facility] Blood 05/23/2022 9:10 AM EST 05/23/2022 9:17 AM EST Narrative Resulting Agency Comment Spec In Lab Tal Eagle MD HEMATOLOGY ORDERA BLES Performing Organization Address [facility]/ZIP Co de Phone Number [facility] [place] [address] * Tacrolimus level (05/23/2022 9:10 AM EST) Pathologist [facility] Tacrolimus 8.6 ng/mL [facility] Comment: Trough [...] CHEMISTRY ORDERAB LES Performing Organization Address [facility] Co de Phone Number [facility] [place] [address] * Reticulocyte Count (05/23/2022 9:10 AM EST) Pathologist [facility] Reticulocyte % 2.0 0.7 - 2.6 % [facility] Retic Abs # 0.090 0.030 - 0.120 x10(6)/mcL [facility] Immature Retic% 12.0 0.0 - 15.6 % [facility] Reticulated Hgb 31.8 31.3 - 40.2 pg [facility] Blood 05/23/2022 9:10 AM EST 05/23/2022 9:17 AM EST Narrative Resulting Agency Comment Spec In Lab Tal Eagle MD HEMATOLOGY ORDERA BLES Performing Organization Address City/[facility]/ZIP Co de Phone Number [facility] [place] [address] * BKV Quant Blood (05/23/2022 9:10 AM [...] Method: ester BKV test used with the DataArt0 platform (VidBid) Linear Range: 21.5 - 1.0 x 10^8 IU/mL (1.33 - 8.00 log IU/mL) Note: The Kirsten ester BKV assay has been cleared by the U.S. Food and Drug Administration for clinical testing. Blood 05/23/2022 9:10 AM EST 05/23/2022 10:53 AM EST Narrative Resulting Agency Comment Spec In Lab Tal Eagle MD MOLECULAR ORDERAB LES [facility] [place] [address] * Cholesterol, total (05/23/2022 9:04 AM EST) [facility] Cholesterol, Total 71 mg/dL [facility] Comment: Lower Risk: <200 mg/dL Average Risk: 200-239 mg/dL Higher Risk: >qt=753 mg/dL Lipid Interpretation See Note [facility] Comment: Lipid management should be guided by a patient? s ASCVD risk, goals and preferences. ACC/AHA Guidelines recommend high intensity statin if clinical ASCVD or LDL greater than or equal to 190 mg/dL. http://tinyurl.com/UES-OYM-Opfesujst Adults aged 40-75 with LDL 70-189 mg/dL should have their 10 year ASCVD risk estimated with the ACC/AHA ASCVD risk legal billing clerk http://tools.acc.org/TDSEV-Arpi-Nbwgcynhd/ Statin should be discussed if risk greater [...] CHEMISTRY ORDERAB LES [facility] [place] [address] * Uric acid (05/23/2022 9:04 AM EST) Uric Acid 7.5 3.5 - 8.5 mg/dL [facility] Blood 05/23/2022 9:04 AM EST 05/23/2022 9:21 AM EST Narrative Resulting Agency Comment Spec In Lab Tal Eagle MD CHEMISTRY ORDERAB LES Performing Organization Address City/[facility]/ZIP Co de Phone Number [facility] [place] [place] [address] * Phosphorus (05/23/2022 9:04 AM EST) Phosphorus 3.0 2.5 - 4.5 mg/dL [facility] Blood 05/23/2022 9:04 AM EST 05/23/2022 9:21 AM EST Narrative Resulting Agency Comment Spec In Lab Tal Eagle MD CHEMISTRY ORDERAB LES Performing Organization Address [facility] Co de Phone Number [facility] [address] * (ABNORMAL) Magnesium (05/23/2022 9:04 AM EST) Magnesium 0.66(L) 0.69 - 1.07 mmol/L [facility] Blood 05/23/2022 9:04 AM EST 05/23/2022 9:21 AM EST Narrative Resulting Agency Comment Spec In Lab Tal Eagle MD CHEMISTRY ORDERAB LES [facility] [place] [address] * (ABNORMAL) Comprehensive metabolic panel (non-fasting) (05/23/2022 9:04 AM EST) Glucose 140 65 - 199 mg/dL [facility] Comment:Diabetes: >=200 mg/d L plus symptoms Blood Urea Nitrogen 21(H) 10 - 20 mg/dL [facility] Creatinine 1.60(H) 0.80 - 1.50 mg/dL [facility] Sodium 141 135 - 145 mmol/L [facility] Potassium 4.3 3.5 - 5.0 mmol/L [facility] Comment: Please note: ??Patients with WBC >100,000 may have falsely elevated Potassium levels. ??For accurate Potassium quantification in these patients send serum separator tube (gold top) for subsequent determinations. ??Contact the Clinical Chemistry Laboratory if there are any questions. Chloride 103 98 - 107 mmol/L [facility] Carbon Dioxide 29 22 - 31 mmol/L [facility] Anion Gap 9 5 - 15 mmol/L [facility] Calcium 10.1 8.5 - 10.5 mg/dL [facility] Protein, Total 7.3 6.1 - 8.0 g/dL [facility] Albumin 4.0 3.2 - 5.2 g/dL [facility] Aspartate Aminotransferase 15 0 - 39 unit/L [facility] Alanine Aminotransferase 16 0 - 55 unit/L [facility] Alkaline Phosphatase 80 40 - 130 unit/L [facility] Bilirubin, Total 2.0(H) 0.2 - 1.3 mg/dL [facility] Est Glomerular Filtration Rate 45(L) >=60 mL/min/1. 73 m?? [facility] [...] CHEMISTRY ORDERAB LES Performing Organization Address [facility] Co de Phone Number [facility] [place] [address] * Urinalysis Microscopic Exam (05/23/2022 8:56 AM EST) RBC, Urine 1 0 - 3 /HPF [facility] WBC, Urine 1 0 - 3 /HPF [facility] Squamous Epithelial Cells Raw Data, Urine 1 <=4 /HPF [facility] Clean Catch Urine 05/23/2022 8:56 AM EST 05/23/2022 9:08 AM EST Narrative Resulting Agency Comment Spec In Lab Tal Eagle MD URINE ORDERABLES Performing Organization Address City/[facility]/ZIP Co de Phone Number [facility] [place] [address] * (ABNORMAL) Urinalysis with reflex Culture (05/23/2022 8:56 AM EST) Glucose, Urine Dipstick Negative Negative mg/dL [facility] [...] Clear Clear [facility] Specific [place] Urine Automated 1.020 1.005 - 1.030 [facility] Color, Urine Dipstick Yellow Yellow [facility] Reflex to Culture No [facility] Clean Catch Urine 05/23/2022 8:56 AM EST 05/23/2022 9:08 AM EST Narrative Resulting Agency Comment Spec In Lab Tal Eagle MD URINE ORDERABLES Performing Organization Address [facility] Co de Phone Number [facility] [place] [address] * (ABNORMAL) Protein/Creatinine Ratio, urine (05/23/2022 8:56 AM EST) Creatinine, Urine 125 mg/dL [facility] Protein, Urine 38(H) 0 - 12 mg/dL [facility] Protein / Creatinine Ratio, Urine 0.3 ratio [facility] Urine 05/23/2022 8:56 AM EST 05/23/2022 9:10 AM EST Narrative Resulting Agency Comment Spec In Lab Tal Eagle MD URINE ORDERABLES Performing Organization Address City/[facility]/ZIP Co de Phone Number [facility] [place] [address] documented in this encounter Visit Diagnoses Diagnosis H/O kidney transplant Kidney replaced by transplant Vitamin D deficiency Unspecified vitamin D deficiency shelter current use of immunosuppressive drug documented in this encounter Care Teams Data Network Architect Relationship Specialty Start Date End Date Urbano Jimenez DO [address] [place] [address] PCP - General Family Medicine 03/18/22 Ruchi Valles RN Nurse Clinic Transplant Surgery 07/30/15 documented as of this encounter
--- OUTSIDE RECORDS SUMMARY | 2024-05-16 17:17 | XMS_ITS | Encounter Summary ---
Author Organization [facility] Address [facility] [place] [address] Care Team Providers Care Foundation Engineer Name Role Phone Urbano Jimenez Ray KIRBY Primary Care Provider [phone] Reason for Visit * Reason Onset Date Comments Medication Refill 07/28/2022 Encounter Details Date Type Department Care Team (Late st Contact Info) Description 07/28/2022 Refill [place] [phone] Tal Eagle MD [facility] [place] [address] Other complication of kidney transplant; Prophylactic immunotherapy; [...] AM EST TH Visit (TeleHealth) Cardiology at [address] [phone] Byron Brown MD [facility] [place] [address] 07/14/2024 10:00 AM EST Hospital Encounter Non-Invasive Cardiology Lab [place], [...] transplant documented in this encounter Care Teams Foundation Engineer Relationship Specialty Start Date End Date Urbano Jimenez DO [address] [place] [address] PCP - General Family Medicine 03/18/22 Ruchi Valles RN Nurse Clinic Transplant Surgery 07/30/15 documented as of this encounter
--- OUTSIDE RECORDS SUMMARY | 2024-05-16 17:17 | XMS_ITS | Encounter Summary ---
Author Organization [facility] Address [facility] [place] [address] Care Team Providers Care Tightening Machine Operator Name Role Phone Urbano Jimenez Primary Care Provider [phone] Reason for Visit * Reason Onset Date Comments Medication Refill 07/21/2022 Encounter Details Date Type Department Care Team (Late st Contact Info) Description 07/21/2022 Refill [place] [phone] Tal Eagle MD [facility] [place] [address] H/O kidney transplant; Aftercare following organ transplant; Other complication of kidney transplant; 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 Author DH Home Medication Compliance and Understanding Patient Facing Action Plan On track( 017 10:41 AM EDT) Selena Scott, [facility] Note: Patient Goal: Clear hepatitis C Timeframe to meet goal: within 12 weeks of therapy documented as of this encounter Visit Diagnoses Diagnosis H/O kidney transplant Kidney replaced by transplant Aftercare following organ transplant Other complication of kidney transplant senior living current use of immunosuppressive drug documented in this encounter Care Teams Tightening Machine Operator Relationship Specialty Start Date End Date Urbano Jimenez DO [address] [place] [address] PCP - General Family Medicine 03/18/22 Ruchi Valles RN Nurse Clinic Transplant Surgery 07/30/15 documented as of this encounter
--- OUTSIDE RECORDS SUMMARY | 2024-05-16 17:17 | XMS_ITS | Encounter Summary ---
[place] [address] Care Team Providers Care Soccer Ball Assembler Name Role Phone Urbano Jimenez DO Primary Care Provider [phone] Reason for Referral * Diagnostic Test (Routine) - Closed Specialty Diagnoses / Procedures Referred By Humberto flor Referred To Contact Cardiology Diagnoses Cardiomyopathy, unspecified type Procedures Echocardiogram Transthoracic Shaq Damon MD [facility] [place] [address] [facility] [place] [address] Referral ID Status Reason Start Date Expiration Date V isits Requested Visits Authorized [id number] Closed Specialty Service Requested 09/02/2022 09/02/2023 1 1 Encounter Details Date Type Department Care Team (Late st Contact Info) Description 09/02/2022 2:00 PM EST TH Visit (TeleHealth) Cardiology at [address] [phone] Shaq Damon MD [facility] [place] [address] Cardiomyopathy, unspecified type Social History [...] from the original note were not included. [facility] [place] [address] CARDIOLOGY/ VASCULAR OUTPATIENT NOTE Ethel Bolden Urbano [...] weeks or more (he was seen at [facility] recently and told he did not [...] complaints. He is establishing care with the [facility] as well. Meds: Current Outpatient Medications Medication [...] lead Intrinsic P-wave chronically measured < 1 mV~~Ap:64.2%~Director Of Front Office:10.0%~~Device Defined Counters:~Atrial Fibrillation/Flutter: 0~Trending illustrates atrial events [...] time Shaq Damon MD, FACC Cardiovascular Medicine [facility] [address] Clinic [phone] Clinic Team Nurse: [phone] Estimated time : 30 minutes total time in review of lab tests, evaluation, education of suggested medication, ordering medications and tests, communicating care coordination, and documentation of my findings and recommendations. documented in this encounter Plan of Treatment Upcoming Encounters Date Type Department Care Team (Late st Contact Info) Description 06/22/2024 11:00 AM EST TH Visit (TeleHealth) Cardiology at [address] [phone] Shaq Damon MD [facility] DR CARDIOLOGY [place] [id number] 07/14/2024 10:00 AM EST Hospital Encounter Non[place] [phone] Arrived documented as of this encounter Goals Goal Patient Goal Type Associated Problems Recent Progress Patient-Stated? Author DH Spencer Medication Compliance and Understanding Patient Facing Action [...] 1950 ? Height: 180 cm ? Account: [id number] Age: 72 yrs ? Weight: 101 kg Gender: Male ?BSA: 2.2 m2 Ordering Physician: SHAQ DAMON Referring Physician: SHAQ DAMON Performed By: Leila Max RDCS Reason For Study: Cardiomyopathy Exam Location: [facility]. Interpretation Summary 1. Left ventricular function [...] 02/19/2022, LV function visually appears similar. Procedure Complete-48852. Left ventricular strain. Satisfactory quality. Left Ventricle [...] Location: : 1950 Height: 180 cm Account: [id number] Age: 72 yrs Weight: 101 kg Gender: Male BSA: 2.2 m2 Ordering Physician: SHAQ DAMON Referring Physician: SHAQ DAMON Performed By: Leila Max RDCS Reason For Study: Cardiomyopathy Exam Location: [facility]. Interpretation Summary 1. Left ventricular function [...] echo 02/19/2022, LV function visually appearssimilar. Procedure Complete-17857. Left ventricular strain. Satisfactory quality. Left Ventricle [...] type documented in this encounter Care Teams Soccer Ball Assembler Relationship Specialty Start Date End Date Urbano Jimenez DO [address] [facility] [place] [address] PCP - General Family Medicine 03/18/22 Ruchi Valles RN Nurse Clinic Transplant Surgery 07/30/15 documented as of this encounter
--- OUTSIDE RECORDS SUMMARY | 2024-05-16 17:17 | XMS_ITS | Encounter Summary ---
Author Organization [facility] [place] [address] Care Team Providers Care Hat Stock Laminating Machine Operator Name Role Phone Urbano Jimenez Ray KIRBY Primary Care Provider [phone] Encounter Details Date Type Department Care Team (Late st Contact Info) Description 06/02/2022 Unscheduled Encounter Cardiology at [address] [phone] Mara Holman APRN [facility] [place] [address] Pacemaker Social History Tobacco Use Types Packs/Day [...] EST TH Visit (TeleHealth) Cardiology at [address] [phone] Byron Brown MD [facility] [place] [address] 07/14/2024 10:00 AM EST Hospital Encounter Non-Invasive Cardiology Lab [facility] [place] [address] Arrived documented as of this encounter Goals [...] situ documented in this encounter Care Teams Hat Stock Laminating Machine Operator Relationship Specialty Start Date End Date Urbano Jimenez DO [address] [place] [address] [place] [address] PCP - General Family Medicine 03/18/22 Ruchi Valles RN Nurse Clinic Transplant Surgery 07/30/15 documented as of this encounter
--- OUTSIDE RECORDS SUMMARY | 2024-05-16 17:17 | XMS_ITS | Encounter Summary ---
Author Organization [facility] [place] [address] Care Team Providers Care Hop Farm Worker Name Role Phone Urbano Jimenez DO Primary Care Provider [phone] Reason for Visit * Auth/Cert (Routine) Specialty Diagnoses / Procedures Referred By Contac t Referred To Contact Diagnoses Other persistent atrial fibrillation Persistent atrial fibrillation S/P BATOOL 45D F/U Procedures PRG DAVEY REAL TIME IMG 2D W PRB IMG ACQUIS I&R TRANSESOPHAGEAL ECHOCARDIOGRAM (WRVU 2.55) Liseth Calero MD [facility] [place] [address] [facility] Referral ID Status Reason Start Date Expiration Date Visits Re quested Visits Authorized [id number] 1 1 Encounter Details Date Type Department Care Team (Latest Contact Info) Description 07/15/2022 4:40 PM EST TH Visit (TeleHealth) Cardiology at [address] [phone] Tal Diana MD [facility] [place] [address] Atrial fibrillation, unspecified type (Primary Dx); Hypertension secondary to other renal disorders; Coronary artery disease involving [place]bi[place] sh[place] heart, unspecified vessel or lesion type, unspecified [...] deficiency 09/20/2017 ??? Prophylactic immunotherapy 09/22/2016 ??? 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 [...] documentation: 30 minutes. Tal Diana MD Pager [phone] documented in this encounter Plan of Treatment Upcoming Encounters Date Type Department Care Team (Late st Contact Info) Description 06/22/2024 11:00 AM EST Visit (TeleHealth) Cardiology at [address] [phone] Byron Brown MD [facility] [place] [address] 07/14/2024 10:00 AM EST Hospital Encounter Non-[place] [address] Arrived documented as of this encounter Goals [...] other renal disorders Coronary artery disease involving timbi[place]sha [place] heart, unspecified vessel or lesion type, unspecified whether angina present Tachy-sakina syndrome Sinoatrial node dysfunction Pacemaker Cardiac pacemaker in situ Aortic stenosis, mild Aortic valve disorders Mitral valve insufficiency, unspecified etiology Atrial fibrillation with RVR - had flutter initially, then fib Atrial fibrillation documented in this encounter Care Teams Hop Farm Worker Relationship Specialty Start Date End Date Urbano Jimenez DO [address] [place] [address] PCP - General Family Medicine 03/18/22 Ruchi Valles RN Nurse Clinic Transplant Surgery 07/30/15 documented as of this encounter
--- OUTSIDE RECORDS SUMMARY | 2024-05-16 17:17 | XMS_ITS | Encounter Summary ---
[facility] Organization [facility] [place] [address] Care Team Providers Care Criminal Justice Faculty Name Role Phone Urbano Jimenez DO Primary Care Provider Encounter Details Date Type Department Care Team (Late st Contact Info) Description 06/02/2022 11:00 AM EST Office Visit Cardiology at [address] [phone] Mara Holman, SUPERINTENDENT ELECTRIC POWER [facility] [place] [address] Pacemaker; Atrial fibrillation with RVR; Persistent atrial [...] Media section for details Cody Patricia Yuan [id number] 06/02/2022 History: 71 yo male with history [...] RA Lead: Medtronic 5076-45 CapsureFix Novus MRI [id number] Implanted: 31-Jan-2022 RV Lead: Medtronic 5076-52 CapsureFix Novus MRI [id number] Implanted: 31-Jan-2022 Device is MRI-conditional. Alerts ?? AT/AF >= 6 hr for 26 days. Episode in progress 16 days, 12 hours and 37 minutes. Diagnostics Pacing Mode: AAIR<=>DDDR 60-130 Presenting EGMs: ,Ar/VS and occasional ETIQUETTE TEACHER Underlying Rhythm: atrial fibrillation 43 bpm. Atrial [...] possible cardioversion. Mara Holman APRN 06/02/2022 Pager: [phone] documented in this encounter Plan of Treatment Upcoming Encounters Date Type Department Care Team (Late st Contact Info) Description 06/22/2024 11:00 AM EST TH Visit (TeleHealth) Cardiology at [address] [phone] Byron Brown MD [facility] [place] [address] 07/14/2024 10:00 AM EST Hospital Encounter Non-[place] [phone] Arrived documented as of this encounter Goals Goal Patient Goal Type Associated Problems Recent Progress Patient-Stated? Author [facility] Medication Compliance and Understanding Patient Facing [...] fibrillation documented in this encounter Care Teams Criminal Justice Faculty Relationship Specialty Start Date End Date Urbano Jimenez DO [address] [place] [id number] PCP - General Family Medicine 03/18/22 Ruchi Valles RN Nurse Clinic Transplant Surgery 07/30/15 documented as of this encounter
--- OUTSIDE RECORDS SUMMARY | 2024-05-16 17:17 | XMS_ITS | Encounter Summary ---
Author Organization [facility] [place] [address] Care Team Providers Care Gas Distribution And Emergency Clerk Name Role Phone Urbano Jimenez Ray KIRBY Primary Care Provider Reason for Visit * Reason Comments Medication Refill Encounter Details Date Type Department Care Team (Late st Contact Info) Description 07/21/2022 Refill Solid [place] [phone] Gurdeep Boston APRN [facility] [place] [address] Social History Tobacco Use Types Packs/Day Years [...] 11:00 AM EST Visit (TeleHealth) Cardiology at [address] [phone] Byron Brown MD [facility] [place] [address] 07/14/2024 10:00 AM EST Hospital Encounter Non[place] [address] Arrived documented as of this encounter Goals [...] filedocumented in this encounter Care Teams Gas Distribution And Emergency Clerk Relationship Specialty Start Date End Date Urbano Jimenez DO [address] [place] [address] PCP - General Family Medicine 03/18/22 Ruchi Valles RN Nurse Clinic Transplant Surgery 07/30/15 documented as of this encounter
--- OUTSIDE RECORDS SUMMARY | 2024-05-16 17:17 | XMS_ITS | Encounter Summary ---
Author Organization [facility] [place] [address] Care Team Providers Care Mounter Clarinets Name Role Phone Urbano Jimenez Ray KIRBY Primary Care Provider [phone] Encounter Details Date Type Department Care Team [...] EST TH Visit (TeleHealth) Cardiology at [address] [phone] Byron Brown MD [facility] [place] [address] 07/14/2024 10:00 AM EST Hospital Encounter Non-[place] [phone] Arrived documented as of this encounter Goals [...] on filedocumented in this encounter Care Teams Mounter Clarinets Relationship Specialty Start Date End Date Urbano Jimenez DO [address] [place] [address] PCP - General Family Medicine 03/18/22 Ruchi Valles RN Nurse Clinic Transplant Surgery 07/30/15 documented as of this encounter
--- OUTSIDE RECORDS SUMMARY | 2024-05-16 17:17 | XMS_ITS | Encounter Summary ---
[place] [address] Care Team Providers Care House Painting Instructor Name Role Phone Urbano Jimenez DO Primary Care Provider [phone] Reason for Referral * Diagnostic Test (Routine) - Closed Specialty Diagnoses / Procedures Referred By Humberto flor Referred To Contact Cardiology Diagnoses Persistent atrial fibrillation Procedures Transesophageal Echocardiogram (DAVEY) Tal Diana MD [facility] [place] [address] [facility] [place] [address] Referral ID Status Reason Start Date Expiration Date V isits Requested Visits Authorized [id number] Closed Specialty Service Requested 07/06/2022 10/03/2022 1 1 Reason for Visit * Auth/Cert (Routine) Specialty Diagnoses / Procedures Referred By Humberto flor Referred To Contact Diagnoses Other persistent atrial fibrillation Persistent atrial fibrillation S/P BATOOL 45D F/U Procedures PRG DAVEY REAL TIME IMG 2D W PRB IMG ACQUIS I&R TRANSESOPHAGEAL ECHOCARDIOGRAM (WRVU 2.55) Liseth Calero MD [facility] [place] [address] [facility] Referral ID Status Reason Start Date Expiration Date Visits Re quested Visits Authorized [id number] 1 1 Encounter Details Date Type Department Care Team (Late st Contact Info) Description 07/15/2022 9:37 AM EST - 07/15/2022 1:44 PM EST Hospital Encounter Same Day Program at [facility] [address] Liseth Calero MD [facility] [place] [address] Persistent atrial fibrillation Discharge Disposition: Home Social [...] Weight increase 08/12/2016 Allergies Allergen Reactions ??? [place] Physical Exam Last value Range last 24 [...] mary-device leak. No change in pericardial effusion. [id number] flow across atrial septostomy. See report for [...] patient is FULL CODE Cathie Palmer MD Roll Off Driver documented in this encounter Plan of Treatment Upcoming Encounters Date Type Department Care Team (Late st Contact Info) Description 06/22/2024 11:00 AM EST TH Visit (TeleHealth) Cardiology at [address] [phone] Byron Brown MD [facility] [place] [address] 07/14/2024 10:00 AM EST Hospital Encounter Non-[place]vasive [place] [phone] Arrived documented as of this encounter Goals [...] Persistent atrial fibrillation DAVEY complete wo contrast (27333) 07/15/2022 10:47 AM EST Persistent atrial fibrillation documented in this encounter Results * DAVEY W LMTD SPECTRAL DOPPLER COLOR DOPPLER (07/15/2022 12:43 PM EST) Anatomical Region Laterality Modality Cardiac Other 07/15/2022 10:3 4 AM EST Narrative 07/15/2022 5:24 PM EST ? Transesophageal Echocardiogram Report Name: SHAKIRAANAETHEL MELGAR ?Study Date: 07/15/2022 10:34 AMBP: 146/86 mmHg ? Patient Location: OR^ORMN^A HR: 60 : 1950 ? Height: 180 cm ? Account: [id number] Age: 71 yrs ? Weight: 100 kg Gender: Male ?BSA: 2.2 m2 Ordering Physician: GENA CHERRY Referring Physician: UNKNOWN Performed By: Cathie Palmer MD Reason For Study: Atrial fibrillation History: Post-Watchman Interpreting Fellow: Cathie Palmer. Exam Location: [facility]. Interpretation Summary Post-Watchman DAVEY follow up. [...] Echocardiogram Report Name: ETHEL AKINS Study Date: 01:34 AMBP: 146/86 mmHg Patient Location:OR^ORMN^A HR: 60 : 1950 Height: 180 cm Account: [id number] Age: 71 yrs Weight: 100 kg Gender: Male BSA: 2.2 m2 Ordering Physician: GENA CHERRY Referring Physician: UNKNOWN Performed By: Cathie Palmer MD Reason For Study: Atrial fibrillation History: Post-Watchman Interpreting Fellow: Cathie Palmer. Exam Location: [facility]. Interpretation Summary Post-Watchman DAVEY follow up. [...] PRN, Starting on Thu07/15/22 at 1051, Until 07/15/22 at 1545, Intra-Operative (Intra-Procedure) 1051 (Given - Provid er: Cathie Palmer MD - Comment: To Back of throat) documented in this encounter Care Teams House Painting Instructor Relationship Specialty Start Date End Date Urbano Jimenez DO [address] [place] [address] PCP - General Family Medicine 03/18/22 Ruchi Valles RN Nurse Clinic Transplant Surgery 07/30/15 documented as of this encounter
--- OUTSIDE RECORDS SUMMARY | 2024-05-16 17:17 | XMS_ITS | Encounter Summary ---
Author Organization [facility] [place] [address] Care Team Providers Care Director Experimental Medicine Name Role Phone Urbano Jimenez DO Primary Care Provider [phone] Encounter Details Date Type Department Care Team (Latest Contact Info) Description 08/06/2022 Orders Only [place] [phone] Urbano Houston LPN H/O kidney transplant; half-way current use of immunosuppressive drug; Vitamin D [...] AM EST TH Visit (TeleHealth) Cardiology at [address] [phone] Byron Brown MD [facility] [place] [address] 07/14/2024 10:00 AM EST Hospital Encounter Non-[place] [address] Arrived documented as of this [...] 9:02 AM EDT) Creatinine, Urine 86 mg/dL [facility] Protein, Urine 20(H) 0 - 12 mg/dL [facility] Protein / Creatinine Ratio, Urine 0.2 ratio [facility] Urine 10/10/2022 9:02 AM EDT 10/10/2022 9:08 AM EDT Narrative Resulting Agency Comment Spec In Lab Gurdeep Boston APRN URINE ORDERABLES Performing Organization Address City/State/[facility] Co de Phone Number [facility] [place] [address] * (ABNORMAL) Urinalysis with reflex Culture (10/10/2022 9:02 AM EDT) Glucose, Urine Dipstick Negative Negative mg/dL [facility] Protein, Urine Dipstick Trace(A) Negative mg/dL [facility] Bilirubin, Urine Dipstick Negative Negative mg/dL [facility] Comment: Clinical correlation required for positive Urine Bilirubin results as false positive may occur with some drugs and drug related products. If a false positive is suspected a serum total bilirubin should be considered if clinically indicated. Urobilinogen, Urine Dipstick Normal Normal mg/dL [facility] pH, Urn (dipstick) 7.0 5.0 - 8.0 [facility] Blood, Urine Dipstick Negative Negative mg/dL [facility] Ketone, Urine Dipstick Negative Negative mg/dL [facility] Nitrite, Urine Dipstick Negative Negative [facility] Leukocytes, Urine Dipstick Negative Negative mcL [facility] Appearance, Urine Dipstick Clear Clear [facility] Specific [place] Urine Automated 1.018 1.005 - 1.030 [facility] Color, Urine Dipstick Yellow Yellow [facility] Reflex to Culture No [facility] Clean Catch Urine 10/10/2022 9:02 AM EDT 10/10/2022 9:08 AM EDT Narrative Resulting Agency Comment Spec In Lab Gurdeep Boston APRN URINE ORDERABLES Performing Organization Address [facility] Co de Phone Number [facility] [place] [address] * BKV Quant Blood (10/10/2022 8:22 AM EDT) BKV Blood Result Not Detected Not Detected IU/mL [facility] Comment: Indication for Study: Monitoring BKV DNA Analysis: The ester BKV test is an in vitro nucleic acid amplification tests using real-time polymerase chain reaction (PCR) assay for the quantitative measurement of BK virus (BKV) DNA in human EDTA plasma. Sample: EDTA plasma Method: ester BKV test used with the Cognuse0 platform ([employer]) Linear Range: 21.5 - 1.0 x 10^8 IU/mL (1.33 - 8.00 log IU/mL) Note: The Kirsten ester BKV assay has been cleared by the U.S. Food and Drug Administration for clinical testing. Blood 10/10/2022 8:22 AM EDT 10/10/2022 10:31 AM EDT Narrative Resulting Agency Comment Spec In Lab Gurdeep Boston IVETH MOLECULAR ORDERABLES Performing Organization Address [facility] Co de Phone Number [facility] [place] [address] * Tacrolimus level (10/10/2022 8:22 AM EDT) Tacrolimus 6.2 ng/mL [facility] Comment: Trough therapeutic range is 3-15 [...] Agency Comment Spec In Lab Gurdeep Boston ADMINISTRATIVE EXECUTIVE CHEMISTRY ORDERABLES Performing Organization Address City/[facility]/ZIP Co de Phone Number [facility] [place] [address] * Uric acid (10/10/2022 8:22 AM EDT) Uric Acid 6.4 3.5 - 8.5 mg/dL [facility] Blood 10/10/2022 8:22 AM EDT 10/10/2022 8:26 AM EDT Narrative Resulting Agency Comment Spec In Lab Gurdeep Boston ADMINISTRATIVE EXECUTIVE CHEMISTRY ORDERABLES Performing Organization Address [facility] Co de Phone Number [facility] [place] [address] * (ABNORMAL) Magnesium (10/10/2022 8:22 AM EDT) Magnesium 0.64(L) 0.69 - 1.07 mmol/L [facility] Blood 10/10/2022 8:22 AM EDT 10/10/2022 8:26 AM EDT Narrative Resulting Agency Comment Spec In Lab Gurdeep Boston ADMINISTRATIVE EXECUTIVE CHEMISTRY ORDERABLES Performing Organization Address City/[facility] Co de Phone Number [facility] [place] [address] * Phosphorus (10/10/2022 8:22 AM EDT) Phosphorus 2.5 2.5 - 4.5 mg/dL [facility] Blood 10/10/2022 8:22 AM EDT 10/10/2022 8:26 AM EDT Narrative Resulting Agency Comment Spec In Lab Gurdeep Cook Bowling ADMINISTRATIVE EXECUTIVE CHEMISTRY ORDERABLES Performing Organization Address City/[facility] Co de Phone Number [facility] [place] [address] * Lipid Panel (Reflex Direct LDL) (10/10/2022 8:22 AM EDT) Cholesterol, Total 99 mg/dL [facility] Comment: Lower Risk: <200 mg/dL Average Risk: 200-239 mg/dL Higher Risk: >bd=637 mg/dL Triglyceride 197 mg/dL [facility] Comment: Average Risk/Lower Risk: <150 mg/dL Borderline High Risk: 150-199 mg/dL High Risk: 200-499 mg/dL Very High Risk: >zq=513 mg/dL HDL Cholesterol 35 mg/dL [facility] Comment: Males: ?? Higher Risk: <40 mg/dL Females: ?? Higher Risk: <50 mg/dL LDL Cholesterol 25 mg/dL [facility] Comment: Lowest Risk: <100 mg/dL Lower Risk: 100-129 mg/dL Borderline High Risk: 130-159 mg/dL High Risk: 160-189 mg/dL Very High Risk: >wd=204 mg/dL Cholesterol/HDL Ratio 2.8 ratio [facility] Lipid Interpretation See Note [facility] Comment: Lipid management should be guided by a patient? s ASCVD risk, goals and preferences. ACC/AHA Guidelines recommend high intensity statin if clinical ASCVD or LDL greater than or equal to 190 mg/dL. http://Nu3.com/IBY-RHP-Rnoqlqwni Adults aged 40-75 with LDL 70-189 mg/dL should have their 10 year ASCVD risk estimated with the ACC/AHA ASCVD risk quill collector http://tools.acc.org/SHMWO-Ymyj-Dlnnuhabu/ Statin should be discussed if risk greater [...] Agency Comment Spec In Lab Gurdeep Boston ADMINISTRATIVE EXECUTIVE CHEMISTRY ORDERABLES [facility] [place] [address] * (ABNORMAL) Comprehensive metabolic panel (non-fasting) (10/10/2022 8:22 AM EDT) Glucose 183 65 - 199 mg/dL [facility] Comment:Diabetes: >=200 mg/d L plus symptoms Blood Urea Nitrogen 15 10 - 20 mg/dL [facility] Creatinine 1.26 0.80 - 1.50 mg/dL [facility] Sodium 143 135 - 145 mmol/L [facility] Potassium 4.2 3.5 - 5.0 mmol/L [facility] Comment: Please note: ??Patients with WBC >100,000 may have falsely elevated Potassium levels. ??For accurate Potassium quantification in these patients send serum separator tube (gold top) for subsequent determinations. ??Contact the Clinical Chemistry Laboratory if there are any questions. Chloride 104 98 - 107 mmol/L [facility] Carbon Dioxide 28 22 - 31 mmol/L [facility] Anion Gap 11 5 - 15 mmol/L [facility] Calcium 9.9 8.5 - 10.5 mg/dL [facility] Protein, Total 7.2 6.1 - 8.0 g/dL [facility] Albumin 4.2 3.2 - 5.2 g/dL [facility] Aspartate Aminotransferase 22 0 - 39 unit/L [facility] Alanine Aminotransferase 22 0 - 55 unit/L [facility] Alkaline Phosphatase 84 40 - 130 unit/L [facility] Bilirubin, Total 2.0(H) 0.2 - 1.3 mg/dL [facility] Est Glomerular Filtration Rate 60 >=60 mL/min/1. 73 m?? [facility] Comment: This patient's estimated GFR was [...] Agency Comment Spec In Lab Gurdeep Boston ADMINISTRATIVE EXECUTIVE CHEMISTRY ORDERABLES Performing Organization Address City/[facility]/ZIP Co de Phone Number [facility] [place] [address] * (ABNORMAL) Reticulocyte Count (10/10/2022 8:22 AM EDT) Reticulocyte % 2.6 0.7 - 2.6 % [facility] Retic Abs # 0.120 0.030 - 0.120 x10(6)/mcL [facility] Immature Retic% 17.8(H) 0.0 - 15.6 % [facility] Reticulated Hgb 34.4 31.3 - 40.2 pg [facility] Blood 10/10/2022 8:22 AM EDT 10/10/2022 8:26 AM EDT Narrative Resulting Agency Comment Spec In Lab Gurdeep Boston ADMINISTRATIVE EXECUTIVE HEMATOLOGY ORDERABLE S Performing Organization Address City/[facility] Co de Phone Number [facility] [place] [address] documented in this encounter Visit Diagnoses Diagnosis H/O kidney transplant 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
--- OUTSIDE RECORDS SUMMARY | 2024-05-16 17:17 | XMS_ITS | Encounter Summary ---
Author Organization [facility] [place] [address] Care Team Providers Care Expense Clerk Name Role Phone Tony Urbano Ray KIRBY Primary Care Provider [phone] Reason for Visit * Auth/Cert (Routine) Specialty Diagnoses / Procedures Referred By Contac t Referred To Contact Diagnoses Other persistent atrial fibrillation Persistent atrial fibrillation S/P BATOOL 45D F/U Procedures PRG DAVEY REAL TIME IMG 2D W PRB IMG ACQUIS I&R TRANSESOPHAGEAL ECHOCARDIOGRAM (WRVU 2.55) Liseth Calero MD [facility] [place] [address] [facility] Referral ID Status Reason Start Date Expiration Date Visits Re quested Visits Authorized [id number] 1 1 Encounter Details Date Type Department Care Team (Late st Contact Info) Description 07/15/2022 10:47 AM EST Anesthesia Event [place] [address] Joseph Vigil DO [facility] [place] [address] Destin Bond CRNA Anesthesia Record Procedure Summary [...] 1044; median cubital vein (antecubital fossa), right; axtz-scf-gullqh catheter system; Anatomical Landmarks; 20 gauge; ewelina; [...] Procedure Summary Date: 07/15/22 Room / Location: [facility] MINOR SURGERY / [facility] MAIN OR Anesthesia Start: 1046 Anesthesia Stop: 1114 Procedure: TRANSESOPHAGEAL ECHOCARDIOGRAM (WRVU 2.55) Diagnosis: Persistent atrial fibrillation (Persistent atrial fibrillation) Surgeons: Ruchi Park MD Responsible Provider: Joseph Vigil DO Anesthesia Type: general ASA Status: 3 All Anesthesia Providers: Anesthesiologist: Joseph Vigil DO [employer] ARTISTIC DIRECTOR: Destin Bond CRNA Vitals Value Taken Time BP 122/74 07/15/22 1315 Temp 36.4 ??C (97.5 ??F) 07/15/22 1121 Pulse 64 07/15/22 1201 Resp 16 07/15/22 1300 SpO2 94 % 07/15/22 1321 Pain Level Vitals shown include unvalidated device data. Patient Location: PACU/[facility] Level of Consciousness: Awake and Alert [...] a 71 y.o. male. Procedure(s): TRANSESOPHAGEAL [facility]ARDIOGRAM [facility] Patient Active Problem List Diagnosis Date [...] ??? Prophylactic immunotherapy 09/22/2016 ??? 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 [...] 0.17) performed by Joseph Ang MD at [facility] MAIN OR ??? PRO ANASTOMOSIS, AV, ANY SITE Left 05/09/2015 AV FISTULA CREATION, DIRECT HEMODIALYSIS, ANY SITE, EG ASHWINI FISTULA UPPER EXTREMITY performed by Que Amaro MD at [facility] OR ? ? PRO ARTHROPLASTY KNEE CONDYLE & PLATEAU MEDIAL & LAT COMPARTMENTS Right 11/25/2017 TOTAL KNEE ARTHROPLASTY (WRVU 20.72) performed by Breezy Dale MD at [facility] OR ??? PRO CYSTOURETHROSCOPY, URETER CATHETER Left 06/17/2018 CYSTO, RETROGRADE, URETEROPYELOGRAPHY (WRVU 2.37) [facility] Edinson Grider III[facility] ??? PRO LAMINEC/FACETECT/FORAMIN, LUMBAR 1 SEG N/A 05/10/2020 LAMINECTOMY, FACETECTOMY & FORAMINOTOMY,LUMBAR, ONE LEVEL (WRVU 15.37) performed by Joseph Ang MD at [facility] OR ??? PRO LAMINOTOMY, LUMBAR DISK, 1 INTRSP N/A 05/10/2020 LAMINOTOMY, DECOMPRESSION, FORAMINOTOMY, LUMBAR (WRVU 13.18) performed by Joseph Ang MD at [facility] OR ??? PRO MICROSURG TECHNIQUES, REQ OPER MICROSCOPE N/A 05/10/2020 MICROSCOPE USE (WRVU 3.46) performed by Joseph Ang MD at [facility] OR ??? PRO PERQ CLSR TCAT L ATR APNDGE W/ENDOCARDIAL IMPLNT N/A 05/08/2022 @PERQ TRANSCATH CLOSURE LEFT ATRIAL APPENDAGE W ENDOCARDIAL IMPLANT, INC RAD S&I (WRVU 14) performed by Tal Diana MD at [facility] CATH LABS ??? PRO REIMPLANT URETER, SINGLE URETER Left 05/20/2016 @URETERONEOCYSTOSTOMY ANASTOMOSIS OF SINGLE URETER TO BLADDER performed by Santosh Arredondo MD at [facility] OR ??? PRO REIMPLANT URETER, SINGLE URETER N/A 05/20/2016 @URETERONEOCYSTOSTOMY ANASTOMOSIS OF SINGLE URETER TO BLADDER performed by Que Amaro MD at [facility] OR ??? PRO TRANSPLANT, PREP CADAVER RENAL GRAFT N/A 09/16/2015 @PREPARATION CADAVERIC RENAL ALLOGRAFT performed by Franko Larkin MD at [facility] OR ??? PRO TRANSPLANTATION OF KIDNEY N/A 09/16/2015 @KIDNEY TRANSPLANT, WITHOUT RECIPIENT NEPHRECTOMY performed by Franko Larkin MD at [facility] MAIN OR ??? TISSUE TRANSFER kidney ??? US RENAL TRANSPLANT LEFT Left 01/31/2019 US Renal Transplant Left 01/31/2019 [facility] RAD ULTRASOUND ??? US RENAL TRANSPLANT LEFT Left 02/07/2019 US Renal Transplant Left 02/07/2019 [facility] RAD ULTRASOUND Social History Tobacco Use ??? Smoking status: Light Smoker Types: Cigars ??? Smokeless tobacco: Never ??? Tobacco comments: cigars, one weekly Substance Use Topics ??? Alcohol use: No Social History Substance and Sexual Activity Drug Use Yes ??? Frequency: 7.0 times per week ??? Types: Marijuana Allergies Allergen Reactions ??? Aston Medications: MAR and/or home medications have been [...] AM EST TH Visit (TeleHealth) Cardiology at [address] [phone] Byron Brown MD [facility] [place] [address] 07/14/2024 10:00 AM EST Hospital Encounter Non-[place] [phone] Arrived documented as of this encounter Goals Goal Patient Goal Type Associated Problems Recent Progress Patient-Stated? Author Home Medication Compliance and Understanding Patient Facing Action Plan On track( 017 10:41 AM EDT) No Selena Cisneros [facility] ED [...] mg documented in this encounter Care Teams Expense Clerk Relationship Specialty Start Date End Date Urbano Jimenez DO [address] [place] [address] PCP - General Family Medicine 03/18/22 Ruchi Valles RN Nurse Clinic Transplant Surgery 07/30/15 documented as of this encounter
--- OUTSIDE RECORDS SUMMARY | 2024-05-16 17:17 | XMS_ITS | Encounter Summary ---
Author Organization [facility] [place] [address] Care Team Providers Care Apparel Designer Name Role Phone Urbano Jimenez Ray KIRBY Primary Care Provider [phone] Reason for Visit * Reason Comments Medication Refill Encounter Details Date Type Department Care Team (Late st Contact Info) Description 09/01/2022 Refill [place] [phone] Gurdeep Boston APRN [facility] [place] [address] H/O kidney transplant; Aftercare following organ transplant; [...] AM EST TH Visit (TeleHealth) Cardiology at [address] [phone] Byron Brown MD [facility] [place] [address] 07/14/2024 10:00 AM EST Hospital Encounter Non-[place]vasive [place] [address] Arrived documented as of this [...] organ transplant 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
--- OUTSIDE RECORDS SUMMARY | 2024-05-16 17:17 | XMS_ITS | Encounter Summary ---
Author Organization [facility] [place] [address] Care Team Providers Care Supervisor Of Officials Name Role Phone PerrydebUrbano DO Primary Care Provider [phone] Reason for Visit * Auth/Cert (Routine) Specialty Diagnoses / Procedures Referred By Contac t Referred To Contact Diagnoses Other persistent atrial fibrillation Persistent atrial fibrillation S/P BATOOL 45D F/U Procedures PRG DAVEY REAL TIME IMG 2D W PRB IMG ACQUIS I&R TRANSESOPHAGEAL ECHOCARDIOGRAM (WRVU 2.55) Liseth Calero MD [facility] [place] [address] [facility] Referral ID Status Reason Start Date Expiration Date Visits Re quested Visits Authorized [id number] 1 1 Encounter Details Date Type Department Care Team (Late st Contact Info) Description 07/15/2022 10:30 AM EST - 07/15/2022 11:30 AM EST Surgery [place] [address] Ruchi Park MD [facility] [place] [address] TRANSESOPHAGEAL ECHOCARDIOGRAM (WRVU 2.3) Social [...] Weight increase 08/12/2016 Allergies Allergen Reactions ??? [place] Physical Exam Last value Range last 24 [...] mary-device leak. No change in pericardial effusion. Ahfn-jz-djejo flow across atrial septostomy. See report for [...] patient is FULL CODE Cathie Palmer MD Industrial Safety And Health Technician documented in this encounter Plan of Treatment Upcoming Encounters Date Type Department Care Team (Late st Contact Info) Description 06/22/2024 11:00 AM EST TH Visit (TeleHealth) Cardiology at [address] [phone] Byron Brown MD [facility] [place] [address] 07/14/2024 10:00 AM EST Hospital Encounter Non-Invasive [place] [phone] Arrived documented as of this encounter Goals [...] Persistent atrial fibrillation DAVEY complete wo contrast (12402) 07/15/2022 10:47 AM EST Persistent atrial fibrillation [...] 1950 ? Height: 180 cm ? Account: [id number] Age: 71 yrs ? Weight: 100 kg Gender: Male ?BSA: 2.2 m2 Ordering Physician: GENA CHERRY Referring Physician: UNKNOWN Performed By: Cathie Palmer MD Reason For Study: Atrial fibrillation History: Post-Watchman Interpreting Fellow: Cathie Palmer. Exam Location: [facility]. Interpretation Summary Post-Watchman DAVEY follow [...] 58 : 1950 Height: 180 cm Account: [id number] Age: 71 yrs Weight: 100 kg Gender: Male BSA: 2.2 m2 Ordering Physician: GENA CHERRY Referring Physician: UNKNOWN Performed By: Cathie Plamer MD Reason For Study: Atrial fibrillation History: Post-Watchman Interpreting Fellow: Cathie Palmer. Exam Location: [facility]. Interpretation Summary Post-Watchman DAVEY follow [...] documented in this encounter Care Teams Supervisor Of Officials Relationship Specialty Start Date End Date Urbano Jimenez DO [address] [place] [address] PCP - General Family Medicine 03/18/22 Ruchi Valles RN Nurse Clinic Transplant Surgery 07/30/15 documented as of this encounter
--- OUTSIDE RECORDS SUMMARY | 2024-05-16 17:17 | XMS_ITS | Encounter Summary ---
Author Organization [facility] [place] [address] Care Team Providers Care Supervisor Plastic Sheets Name Role Phone Urbano Jimenez Ray KIRBY Primary Care Provider [phone] Reason for Visit * Reason Comments Medication Refill Encounter Details Date Type Department Care Team (Late st Contact Info) Description 09/01/2022 Refill Cardiology at [address] [phone] Byron Brown MD [facility] [place] [address] Medication Refill Social History Tobacco Use Types [...] AM EST TH Visit (TeleHealth) Cardiology at [address] [phone] Byron Brown MD [facility] [place] [address] 07/14/2024 10:00 AM EST Hospital Encounter Non-Invasive [place] [address] Arrived documented as of this encounter Goals [...] fibrillation documented in this encounter Care Teams Supervisor Plastic Sheets Relationship Specialty Start Date End Date Urbano Jimenez DO [address] [place], [place] [address] [place] [address] PCP - General Family Medicine 03/18/22 Ruchi Valles RN Nurse Clinic Transplant Surgery 07/30/15 documented as of this encounter
--- OUTSIDE RECORDS SUMMARY | 2024-05-16 17:17 | XMS_ITS | Encounter Summary ---
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 H/O kidney transplant; nursing [...] EST TH Visit (TeleHealth) Cardiology at [address] [phone] Byron Brown MD [facility] [place] [address] 07/14/2024 10:00 AM EST Hospital Encounter Non-[place] [address] Arrived documented as of this [...] deficiency documented in this encounter Care Teams Sales Support Assistant Relationship Specialty Start Date End Date Urbano Jimenez DO [address] [place] [address] PCP - General Family Medicine 03/18/22 Ruhci Valles RN Nurse Clinic Transplant Surgery 07/30/15 documented as of this encounter
--- OUTSIDE RECORDS SUMMARY | 2024-05-16 17:17 | XMS_ITS | Encounter Summary ---
[place] [address] Care Team Providers Care Sand Miller Name Role Phone Urbano Jimenez DO Primary Care Provider [phone] Encounter Details Date Type Department Care Team (Latest Contact Info) Description 09/16/2022 10:00 AM EDT - 09/16/2022 11:59 PM EDT Hospital Encounter Non-Invasive [place] [phone] Discharge Disposition: Home Social History Tobacco Use [...] transplant,Aftercare following organ transplant,Other complication of kidney transplant,shelter current use of immunosuppressive drug TAKE 2 [...] AM EST TH Visit (TeleHealth) Cardiology at [address] [phone] Byron Brown MD [facility] [place] [address] 07/14/2024 10:00 AM EST Hospital Encounter Non-Invasive [place] [phone] Arrived documented as of this encounter Goals Goal Patient Goal Type Associated Problems Recent Progress Patient-Stated? Author DH [place] Medication Compliance and Understanding Patient Facing Action Plan On track( 017 10:41 AM EDT) Selena Scott, [facility] Note: Patient Goal: Clear hepatitis C Timeframe to meet goal: within 12 weeks of therapy documented as of this encounter Visit Diagnoses Not on filedocumented in this encounter Care Teams Sand Miller Relationship Specialty Start Date End Date Urbano Jimenez DO [address] [place] [address] PCP - General Family Medicine 03/18/22 Hai STANLEY,Ruchi Nurse Clinic Transplant Surgery 07/30/15 documented as of this encounter
--- OUTSIDE RECORDS SUMMARY | 2024-05-16 17:17 | XMS_ITS | Encounter Summary ---
Author Organization [facility] [place] [address] Care Team Providers Care Lean Consultant Name Role Phone Urbano Jimenez DO Primary Care Provider [phone] Encounter Details Date Type Department Care Team (Late st Contact Info) Description 06/06/2022 Telephone Cardiology at [address] [phone] Marisela Bob, RN Social History Tobacco Use [...] number to reach Dr Brown. Marisela Bob (Jodie) RN, BSN Cardiology Ambulatory Clinic * Telephone Encounter - Marisela Bob RN - 06/06/2022 3:02 PM EST RTC to Mrs Bolden regarding her questions about Afib and the possible treatment plan for Mr Bolden. 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 Mrs Bolden is also asking if there is any plan for a possible Cardioversion, at some point. Forwarding to Mr Bolden's provider. Marisela Bob RN (Jodie), MARKN Cardiology Ambulatory Clinic * Telephone Encounter - [...] EST TH Visit (TeleHealth) Cardiology at [address] [phone] Byron Brown MD [facility] [place] [address] 07/14/2024 10:00 AM [facility] Hospital Encounter Non-[place]vasive [place] [phone] Arrived documented as of this encounter Goals [...] on filedocumented in this encounter Care Teams Lean Consultant Relationship Specialty Start Date End Date Urbano Jimenez DO [address] [place] [address] PCP - General Family Medicine 03/18/22 Ruchi Valles RN Nurse Clinic Transplant Surgery 07/30/15 documented as of this encounter
--- OUTSIDE RECORDS SUMMARY | 2024-05-16 17:17 | XMS_ITS | Encounter Summary ---
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 Phone Number [facility] [place] [address] * (ABNORMAL) Magnesium (09/18/2022 1:05 AM EDT) Magnesium 0.47(L) 0.69 - 1.07 mmol/L [facility] Blood 09/18/2022 1:05 AM EDT 09/18/2022 1:17 AM EDT Narrative Resulting Agency Comment Spec In Lab Asa Skaggs MD CHEMISTRY ORDERABLES Performing Organization Address [facility] de Phone Number [facility] [place] [address] * (ABNORMAL) Basic Metabolic Panel (non-fasting) (09/18/2022 1:05 AM EDT) Glucose 119 65 - 199 mg/dL [facility] Comment:Diabetes: >=200 mg/d L plus symptoms Blood Urea Nitrogen 12 10 - 20 mg/dL [facility] Creatinine 1.13 0.80 - 1.50 mg/dL [facility] Sodium 142 135 - 145 mmol/L [facility] Potassium 3.3(L) 3.5 - 5.0 mmol/L [facility] Comment: Please note: ??Patients with WBC >100,000 may have falsely elevated Potassium levels. ??For accurate Potassium quantification in these patients send serum separator tube (gold top) for subsequent determinations. ??Contact the Clinical Chemistry Laboratory if there are any questions. Chloride 104 98 - 107 mmol/L [facility] Carbon Dioxide 25 22 - 31 mmol/L [facility] Anion Gap 13 5 - 15 mmol/L [facility] Calcium 8.9 8.5 - 10.5 mg/dL [facility] Est Glomerular Filtration Rate 68 >=60 [...] City/[facility]/ZIP Co de Phone Number [facility] [place] [address] * POCT Glucose (09/17/2022 11:18 PM EDT) Glucose, POC 127 65 - 199 mg/dL [facility] Comment: Supplemental ranges: <140 mg/dL before meals <180 mg/dL all other times of the day Blood 09/17/2022 11:1 8 PM EDT 09/17/2022 11:18 PM EDT Dyan Sears MD POINT OF CARE TEST O RDERABLES Performing Organization Address City/[facility]/ZIP Co de Phone Number [facility] [place] [address] * (ABNORMAL) POCT Glucose (09/17/2022 7:10 PM EDT) Glucose, POC 201(H) 65 - 199 mg/dL [facility] Comment: Supplemental ranges: <140 mg/dL before meals <180 mg/dL all other times of the day Blood 09/17/2022 7:10 PM EDT 09/17/2022 7:10 PM EDT Dyan Sears MD POINT [place] [address] * CT Abdomen & Pelvis w Contrast [...] who have questions please contact the health cna caregiver that requested your imaging first. ? Narrative [...] patients who have questions please contactthe health cna caregiver that requested your imaging first. Dyan Sears MD IM CT ORDERABLES * POCT Glucose (09/17/2022 3:58 PM EDT) Glucose, POC 171 65 - 199 mg/dL [facility] Comment: Supplemental ranges: <140 mg/dL before meals <180 mg/dL all other times of the day Blood 09/17/2022 3:58 PM EDT 09/17/2022 3:58 PM EDT Dyan Sears MD POINT OF CARE TEST O TED Performing Organization Address City/[facility] Co de Phone Number [facility] [place] [address] * POCT Glucose (09/17/2022 11:37 AM EDT) Glucose, POC 175 65 - 199 mg/dL [facility] Comment: Supplemental ranges: <140 mg/dL before meals <180 mg/dL all other times of the day Blood 09/17/2022 11:3 7 AM EDT 09/17/2022 11:37 AM EDT Dyan Sears MD POINT OF CARE TEST Mario JEAN Performing Organization Address [facility] Co de Phone Number [facility] [place] [address] * POCT Glucose (09/17/2022 7:30 AM EDT) Glucose, POC 139 65 - 199 mg/dL [facility] Comment: Supplemental ranges: <140 mg/dL before meals <180 mg/dL all other times of the day Blood 09/17/2022 7:30 AM EDT 09/17/2022 7:30 AM EDT Dyan Sears MD POINT OF CARE TEST O TED Performing Organization Address [facility] Co de Phone Number [facility] [place] [address] * POCT Glucose (09/17/2022 3:29 AM EDT) Glucose, POC 151 65 - 199 mg/dL [facility] Comment: Supplemental ranges: <140 mg/dL before meals <180 mg/dL all other times of the day Blood 09/17/2022 3:29 AM EDT 09/17/2022 3:29 AM EDT Dyan Sears MD POINT [place] [address] * Differential, Automated (09/17/2022 12:51 AM EDT) Neutrophil % 68.9 % [facility] Neutrophil Absolute 5.82 1.70 - 6.10 x10(3)/[facility] Lymph % 16.7 % [facility] Lymphocytes Abs 1.4 0.9 - 3.2 x10(3)/[facility] Monocyte % 9.2 % [facility] Monocyte Abs 0.8 0.3 - 0.9 x10(3)/[facility] Eos % 4.1 % [facility] Eosinophils Abs 0.4 0.0 - 0.4 x10(3)/[facility] Basophil % 0.7 % [facility] Baso Absolute 0.1 0.0 - 0.1 x10(3)/[facility] Immature Gran % 0.40 % [facility] Comment: Immature granulocytes(IG's)percentage and absolute count will include metamyelocytes, myelocytes, and promyelocytes. Blood smears from CBCs yielding IG's will be scanned manually for concordance. If this scan disagrees with the automated IG or if promyelocytes are noted, a manual differential will be performed. Immature Gran Absolute 0.03 0.00 - 0.04 x10(3)/[facility] Blood 09/17/2022 12:5 1 AM EDT 09/17/2022 12:57 AM EDT Narrative Resulting Agency Comment Spec In Lab Miguel Rogers MD HEMATOLOGY ORDERABLE S Performing Organization Address City/[facility]/ZIP Co de Phone Number [facility] [place] [address] * (ABNORMAL) Hemogram (09/17/2022 12:51 AM EDT) White Blood Cell 8.4 4.0 - 9.5 x10(3)/mc L [facility] Red Blood Cell 4.29(L) 4.58 - 5.54 x10(6)/mc L [facility] Hemoglobin 12.8(L) 13.7 - 16.5 g/dL [facility] Hematocrit 37.1(L) 40.5 - 48.5 % [facility] Mean Cell Volume 86.5 82.9 - 93.1 fL [facility] Mean Cell Hemoglobin 29.8 27.5 - 32.1 pg [facility] Mean Cell Hemoglobin Concentration 34.5 32.0 - 35.7 g/dL [facility] Platelet 229 145 - 357 x10(3)/mc L [facility] RDW Standard Deviation 40.2 36.0 - 45.0 fL [facility] RDW coefficient of variation 12.8 11.4 - 13.8 % [facility] Mean Platelet Volume 9.3 7.6 - 12.9 fL [facility] NRBC% auto 0.0 % [facility] NRBC Absolute 0.000 0.000 - 0.000 x10(3)/mc L [facility] Blood 09/17/2022 12:5 1 AM EDT 09/17/2022 12:57 AM EDT Narrative Resulting Agency Comment Spec In Lab Miguel Rogers MD HEMATOLOGY ORDERABLE S Performing Organization Address City/[facility] Co de Phone Number [facility] [place] [address] * (ABNORMAL) Phosphorus (09/17/2022 12:51 AM EDT) Phosphorus 2.4(L) 2.5 - 4.5 mg/dL [facility] Blood 09/17/2022 12:5 1 AM EDT 09/17/2022 12:57 AM EDT Narrative Resulting Agency Comment Spec In Lab Asa Skaggs MD CHEMISTRY ORDERABLES Performing Organization Address City/[facility] Co de Phone Number [facility] [place] [address] * (ABNORMAL) Magnesium (09/17/2022 12:51 AM EDT) Magnesium 0.58(L) 0.69 - 1.07 mmol/L [facility] Blood 09/17/2022 12:5 1 AM EDT 09/17/2022 12:57 AM EDT Narrative Resulting Agency Comment Spec In Lab Asa Skaggs MD CHEMISTRY ORDERABLES [facility] [place] [address] * (ABNORMAL) Basic Metabolic Panel (non-fasting) (09/17/2022 12:51 AM EDT) Glucose 173 65 - 199 mg/dL [facility] Comment:Diabetes: >=200 mg/d L plus symptoms Blood Urea Nitrogen 11 10 - 20 mg/dL [facility] Comment:result rechecked-[place] Creatinine 1.52(H) 0.80 - 1.50 mg/dL [facility] Sodium 140 135 - 145 mmol/L [facility] Potassium 3.7 3.5 - 5.0 mmol/L [facility] Comment: Please note: ??Patients with WBC >100,000 may have falsely elevated Potassium levels. ??For accurate Potassium quantification in these patients send serum separator tube (gold top) for subsequent determinations. ??Contact the Clinical Chemistry Laboratory if there are any questions. Chloride 107 98 - 107 mmol/L [facility] Carbon Dioxide 21(L) 22 - 31 mmol/L [facility] Anion Gap 12 5 - 15 mmol/L [facility] Calcium 9.0 8.5 - 10.5 mg/dL [facility] Est Glomerular Filtration Rate 48(L) >=60 mL/min/1. 73 m?? [facility] Comment: This patient's estimated GFR was [...] City/[facility]/ZIP Co de Phone Number [facility] [place] [address] * (ABNORMAL) CRP, acute inflammation (09/17/2022 12:51 AM EDT) C-Reactive Protein 67.5(H) <=4.9 mg/L [facility] Comment:result rechecked-[place] Blood 09/17/2022 12:5 1 AM EDT 09/17/2022 12:57 AM EDT Narrative Resulting Agency Comment Spec In Lab Dyan Sears MD CHEMISTRY ORDERABLES Performing Organization Address [facility] Co de Phone Number [facility] [place] [address] * POCT Glucose (09/16/2022 11:53 PM EDT) Glucose, POC 132 65 - 199 mg/dL [facility] Comment: Supplemental ranges: <140 mg/dL before meals <180 mg/dL all other times of the day Blood 09/16/2022 11:5 3 PM EDT 09/16/2022 11:53 PM EDT Dyan Sears MD POINT OF CARE TEST O RDERABLES Performing Organization Address City/[facility] Co de Phone Number [facility] [place] [address] * POCT Glucose (09/16/2022 7:31 PM EDT) Glucose, POC 165 65 - 199 mg/dL [facility] Comment: Supplemental ranges: <140 mg/dL before meals <180 mg/dL all other times of the day Blood 09/16/2022 7:31 PM EDT 09/16/2022 7:31 PM EDT Dyan Sears MD POINT OF CARE TEST O TED Performing Organization Address [facility] Co de Phone Number [facility] [place] [address] * POCT Glucose (09/16/2022 3:33 PM EDT) Glucose, POC 190 65 - 199 mg/dL [facility] Comment: Supplemental ranges: <140 mg/dL before meals <180 mg/dL all other times of the day Blood 09/16/2022 3:33 PM EDT 09/16/2022 3:33 PM EDT Dyan Sears MD POINT OF CARE TEST O TED Performing Organization Address [facility] Co de Phone Number [facility] [place] [address] * (ABNORMAL) POCT Glucose (09/16/2022 11:42 AM EDT) Glucose, POC 224(H) 65 - 199 mg/dL [facility] Comment: Supplemental ranges: <140 mg/dL before meals <180 mg/dL all other times of the day Blood 09/16/2022 11:4 2 AM EDT 09/16/2022 11:42 AM EDT Dyan Sears MD POINT OF CARE TEST O TED Performing Organization Address [facility] Co de Phone Number [facility] [place] [address] * POCT Glucose (09/16/2022 7:27 AM EDT) Glucose, POC 154 65 - 199 mg/dL [facility] Comment: Supplemental ranges: <140 mg/dL before meals <180 mg/dL all other times of the day Blood 09/16/2022 7:27 AM EDT 09/16/2022 7:27 AM EDT Dyan Sears MD POINT OF CARE TEST O RDERABLES Performing Organization Address City/[facility] Co de Phone Number [facility] [place] [address] * POCT Glucose (09/16/2022 3:48 AM EDT) Pathologist [facility] Glucose, POC 124 65 - 199 mg/dL [facility] Comment: Supplemental ranges: <140 mg/dL before meals <180 mg/dL all other times of the day Blood 09/16/2022 3:48 AM EDT 09/16/2022 3:48 AM EDT Dyan Sears MD POINT OF CARE TEST O RDERABLES Performing Organization Address [facility] Co de Phone Number [facility] [place] [address] * (ABNORMAL) CRP, acute inflammation (09/16/2022 12:49 AM EDT) [facility] C-Reactive Protein 57.7(H) <=4.9 mg/L [facility] Blood Venous Draw / Unknown 09/16/2022 12:49 AM EDT 09/16/2022 12:57 AM EDT Narrative Resulting Agency Comment Spec In Lab Janet Perkins MD CHEMISTRY ORDERABLES Performing Organization Address [facility] Co de Phone Number [facility] [place] [address] * Differential, Automated (09/16/2022 12:49 AM EDT) Neutrophil % 64.8 % [facility] Neutrophil Absolute 5.18 1.70 - 6.10 x10(3)/[facility] Lymph % 19.2 % [facility] Lymphocytes Abs 1.5 0.9 - 3.2 x10(3)/[facility] Monocyte % 9.4 % [facility] Monocyte Abs 0.8 0.3 - 0.9 x10(3)/[facility] [facility] LABORATORY Eos % 5.4 % [facility] Eosinophils Abs 0.4 0.0 - 0.4 x10(3)/[facility] LABORATORY Basophil % 0.9 % [facility] ITAL LABORATORY Baso Absolute 0.1 0.0 - 0.1 x10(3)/[facility] LABORATORY Immature Gran % 0.30 % [facility] LABORATORY Comment: Immature granulocytes(IG's)percentage and absolute count will include metamyelocytes, myelocytes, and promyelocytes. Blood smears from CBCs yielding IG's will be scanned manually for concordance. If this scan disagrees with the automated IG or if promyelocytes are noted, a manual differential will be performed. Immature Gran Absolute 0.02 0.00 - 0.04 x10(3)/[facility] LABORATORY Blood 09/16/2022 12:4 9 AM EDT 09/16/2022 12:55 AM EDT Narrative Resulting Agency Comment Spec In Lab Miguel Rogers MD HEMATOLOGY ORDERABLE S Performing Organization Address City/State/[facility] Co de Phone Number [facility] [place] [address] * (ABNORMAL) Hemogram (09/16/2022 12:49 AM EDT) White Blood Cell 8.0 4.0 - 9.5 x10(3)/mc L [facility] LABORATORY Red Blood Cell 4.51(L) 4.58 - 5.54 x10(6)/mc L [facility] LABOR[facility]ORY Hemoglobin 13.6(L) 13.7 - 16.5 g/dL [facility]OR[facility] Hematocrit 39.1(L) 40.5 - 48.5 % [facility] LABOR[facility]ORY Mean Cell Volume 86.7 82.9 - 93.1 fL [facility] Mean Cell Hemoglobin 30.2 27.5 - 32.1 pg [facility] LABOR[facility]ORY Mean Cell Hemoglobin Concentration 34.8 32.0 - 35.7 g/dL [facility] LABORATORY Platelet 224 145 - 357 x10(3)/mc L [facility] LABORATORY RDW Standard Deviation 39.9 36.0 - 45.0 fL [facility] RDW coefficient of variation 12.7 11.4 - 13.8 % [facility]ORAT[facility] Mean Platelet Volume 9.0 7.6 - 12.9 fL [facility] NRBC% auto 0.0 % [facility] LABORATORY NRBC Absolute 0.000 0.000 - 0.000 x10(3)/mc L [facility] LABORATORY Blood 09/16/2022 12:4 9 AM EDT 09/16/2022 12:55 AM EDT Narrative Resulting Agency Comment Spec In Lab Miguel Rogers MD HEMATOLOGY ORDERABLE S Performing Organization Address City/[facility]/ZIP Co de Phone Number [facility] [place] [address] * (ABNORMAL) Phosphorus (09/16/2022 12:49 AM EDT) Phosphorus 1.9(L) 2.5 - 4.5 mg/dL [facility] Blood 09/16/2022 12:4 9 AM EDT 09/16/2022 12:55 AM EDT Narrative Resulting Agency Comment Spec In Lab Asa Skaggs MD CHEMISTRY ORDERABLES Performing Organization Address [facility] Co de Phone Number [facility] [place] [address] * (ABNORMAL) Magnesium (09/16/2022 12:49 AM EDT) Magnesium 0.64(L) 0.69 - 1.07 mmol/L [facility] Blood 09/16/2022 12:4 9 AM EDT 09/16/2022 12:55 AM EDT Narrative Resulting Agency Comment Spec In Lab Asa Skaggs MD CHEMISTRY ORDERABLES Performing Organization Address [facility] Co de Phone Number [facility] [place] [address] * (ABNORMAL) Basic Metabolic Panel (non-fasting) (09/16/2022 12:49 AM EDT) Glucose 135 65 - 199 mg/dL [facility] Comment:Diabetes: >=200 mg/d L plus symptoms Blood Urea Nitrogen 6(L) 10 - 20 mg/dL [facility] LABORATORY Creatinine 1.20 0.80 - 1.50 mg/dL [facility]ORATORY Sodium 141 135 - 145 mmol/L [facility] Potassium 3.6 3.5 - 5.0 mmol/L [facility] LABORATORY Comment: Please note: ??Patients with WBC >100,000 may have falsely elevated Potassium levels. ??For accurate Potassium quantification in these patients send serum separator tube (gold top) for subsequent determinations. ??Contact the Clinical Chemistry Laboratory if there are any questions. Chloride 107 98 - 107 mmol/L [facility] LABORATORY Carbon Dioxide 24 22 - 31 mmol/L [facility]ORATORY Anion Gap 10 5 - 15 mmol/L [facility] LABOR[facility]ORY Calcium 8.7 8.5 - 10.5 mg/dL [facility] Est Glomerular Filtration Rate 63 >=60 mL/min/1. 73 m?? [facility] LABORATORY Comment: This patient's estimated GFR was [...] In Lab Asa Skaggs MD CHEMISTRY ORDERABLES [facility] [place] [address] * POCT Glucose (09/16/2022 12:08 AM EDT) Glucose, POC 143 65 - 199 mg/dL [facility] LABORATORY Comment: Supplemental ranges: <140 mg/dL before meals <180 mg/dL all other times of the day Blood 09/16/2022 12:0 8 AM EDT 09/16/2022 12:08 AM EDT Dyan Sears MD POINT OF CARE TEST O RDMILAGROS Performing Organization Address [facility] Co de Phone Number [facility] [place] [address] * POCT Glucose (09/15/2022 9:04 PM EDT) Glucose, POC 137 65 - 199 mg/dL [facility] Comment: Supplemental ranges: <140 mg/dL before meals <180 mg/dL all other times of the day Blood 09/15/2022 9:04 PM EDT 09/15/2022 9:04 PM EDT Dyan Sears MD POINT OF CARE TEST O TED Performing Organization Address [facility] Co de Phone Number [facility] [place] [address] * POCT Glucose (09/15/2022 3:51 PM EDT) Glucose, POC 195 65 - 199 mg/dL [facility] Comment: Supplemental ranges: <140 mg/dL before meals <180 mg/dL all other times of the day Blood 09/15/2022 3:51 PM EDT 09/15/2022 3:51 PM EDT Dyan Sears MD POINT OF CARE TEST O TED Performing Organization Address [facility] Co de Phone Number [facility] [place] [address] * POCT Glucose (09/15/2022 12:00 PM EDT) Glucose, POC 171 65 - 199 mg/dL [facility] Comment: Supplemental ranges: <140 mg/dL before meals <180 mg/dL all other times of the day Blood 09/15/2022 12:0 0 PM EDT 09/15/2022 12:00 PM EDT Asa Skaggs MD POINT OF CARE TEST O RDERABLES Performing Organization Address [facility] Co de Phone Number [facility] [place] [address] * Tacrolimus level (09/15/2022 11:38 AM EDT) Tacrolimus 12.8 ng/mL [facility] Comment: Trough therapeutic range is [...] Skaggs MD CHEMISTRY ORDERABLES Performing Organization Address [facility] Co de Phone Number [facility] [place] [address] * POCT Glucose (09/15/2022 7:42 AM EDT) Glucose, POC 147 65 - 199 mg/dL [facility] Comment: Supplemental ranges: <140 mg/dL before meals <180 mg/dL all other times of the day Blood 09/15/2022 7:42 AM EDT 09/15/2022 7:42 AM EDT Asa Skaggs MD POINT OF CARE TEST O RDERABLES Performing Organization Address [facility] Co de Phone Number [facility] [place] [address] * POCT Glucose (09/15/2022 5:56 AM EDT) Glucose, POC 158 65 - 199 mg/dL [facility] Comment: Supplemental ranges: <140 mg/dL before meals <180 mg/dL all other times of the day Blood 09/15/2022 5:56 AM EDT 09/15/2022 5:56 AM EDT Asa Skaggs MD POINT OF CARE TEST O RDERABLES Performing Organization Address [facility] Co de Phone Number [facility] [place] [address] * POCT Glucose (09/15/2022 4:50 AM EDT) [facility] Glucose, POC 164 65 - 199 mg/dL [facility] Comment: Supplemental ranges: <140 mg/dL before meals <180 mg/dL all other times of the day Blood 09/15/2022 4:50 AM EDT 09/15/2022 4:50 AM EDT Asa Skaggs MD POINT OF CARE TEST O RDERABLES Performing Organization Address [facility] Co de Phone Number [facility] [place] [address] * (ABNORMAL) CRP, acute inflammation (09/15/2022 12:11 AM EDT) [facility] C-Reactive Protein 80.3(H) <=4.9 mg/L [facility] Blood Venous Draw / Unknown 09/15/2022 12:11 AM EDT 09/15/2022 12:20 AM EDT Narrative Resulting Agency Comment Spec In Lab Marcio Haynes MD CHEMISTRY ORDERABLES Performing Organization Address [facility] Co de Phone Number [facility] [place] [address] * Differential, Automated (09/15/2022 12:11 AM EDT) [facility] Neutrophil % 68.5 % [facility] Neutrophil Absolute 5.50 1.70 - 6.10 x10(3)/[facility] LABORATORY Lymph % 18.2 % [facility] Lymphocytes Abs 1.5 0.9 - 3.2 x10(3)/[facility] LABORATORY Monocyte % 8.1 % [facility] LAB[facility]AT[facility] Monocyte Abs 0.6 0.3 - 0.9 x10(3)/[facility] LABORATORY Eos % 3.9 % [facility] Eosinophils Abs 0.3 0.0 - 0.4 x10(3)/[facility] LABORATORY Basophil % 1.1 % [facility] LAB[facility]ATORY Baso Absolute 0.1 0.0 - 0.1 x10(3)/[facility] LABORATORY Immature Gran % 0.20 % [facility] Comment: Immature granulocytes(IG's)percentage and absolute count will include metamyelocytes, myelocytes, and promyelocytes. Blood smears from CBCs yielding IG's will be scanned manually for concordance. If this scan disagrees with the automated IG or if promyelocytes are noted, a manual differential will be performed. Immature Gran Absolute 0.02 0.00 - 0.04 x10(3)/[facility] LABORATORY Blood 09/15/2022 12:1 1 AM EDT 09/15/2022 12:18 AM EDT Narrative Resulting Agency Comment Spec In Lab Miguel Rogers MD HEMATOLOGY ORDERABLE S Performing Organization Address City/State/[facility] Co de Phone Number [facility] [place] [address] * (ABNORMAL) Hemogram (09/15/2022 12:11 AM EDT) White Blood Cell 8.0 4.0 - 9.5 x10(3)/mc L [facility] LABORATORY Red Blood Cell 4.37(L) 4.58 - 5.54 x10(6)/mc L [facility]OR[facility]ORY Hemoglobin 13.2(L) 13.7 - 16.5 g/dL [facility] Hematocrit 38.2(L) 40.5 - 48.5 % [facility] Mean Cell Volume 87.4 82.9 - 93.1 fL [facility] Mean Cell Hemoglobin 30.2 27.5 - 32.1 pg [facility] Mean Cell Hemoglobin Concentration 34.6 32.0 - 35.7 g/dL [facility] Platelet 217 145 - 357 x10(3)/mc L [facility] RDW Standard Deviation 41.2 36.0 - 45.0 fL [facility] RDW coefficient of variation 12.8 11.4 - 13.8 % [facility] Mean Platelet Volume 9.4 7.6 - 12.9 fL [facility] NRBC% auto 0.0 % [facility]ATORY NRBC Absolute 0.000 0.000 - 0.000 x10(3)/mc L [facility] Blood 09/15/2022 12:1 1 AM EDT 09/15/2022 12:18 AM EDT Narrative Resulting Agency Comment Spec In Lab Miguel Rogers MD HEMATOLOGY ORDERABLE S Performing Organization Address City/[facility] Co de Phone Number [facility] [place] [address] * (ABNORMAL) Hepatic Function Panel (09/15/2022 12:11 AM EDT) Protein, Total 6.0(L) 6.1 - 8.0 g/dL [facility] Albumin 3.4 3.2 - 5.2 g/dL [facility] Aspartate Aminotransferase 11 0 - 39 unit/L [facility] Alanine Aminotransferase 10 0 - 55 unit/L [facility] Alkaline Phosphatase 67 40 - 130 unit/L [facility] Bilirubin, Total 2.1(H) 0.2 - 1.3 mg/dL [facility] Bilirubin, Direct 0.2 0.0 - 0.3 mg/dL [facility] Blood 09/15/2022 12:1 1 AM EDT 09/15/2022 12:18 AM EDT Narrative Resulting Agency Comment Spec In Lab Asa Skaggs MD CHEMISTRY ORDERABLES Performing Organization Address [facility] Co de Phone Number [facility] [place] [address] * (ABNORMAL) Phosphorus (09/15/2022 12:11 AM EDT) Phosphorus 2.3(L) 2.5 - 4.5 mg/dL [facility] Blood 09/15/2022 12:1 1 AM EDT 09/15/2022 12:18 AM EDT Narrative Resulting Agency Comment Spec In Lab Asa Skaggs MD CHEMISTRY ORDERABLES Performing Organization Address City/[facility]/ZIP Co de Phone Number [facility] [place] [address] * Magnesium (09/15/2022 12:11 AM EDT) Magnesium 0.78 0.69 - 1.07 mmol/L [facility] Blood 09/15/2022 12:1 1 AM EDT 09/15/2022 12:18 AM EDT Narrative Resulting Agency Comment Spec In Lab Asa Skaggs MD CHEMISTRY ORDERABLES [facility] [place] [address] * (ABNORMAL) Basic Metabolic Panel (non-fasting) (09/15/2022 12:11 AM EDT) Glucose 202(H) 65 - 199 mg/dL [facility] Comment:Diabetes: >=200 mg/d L plus symptoms Blood Urea Nitrogen 9(L) 10 - 20 mg/dL [facility] Creatinine 1.28 0.80 - 1.50 mg/dL [facility] Sodium 140 135 - 145 mmol/L [facility] Potassium 3.7 3.5 - 5.0 mmol/L [facility] Comment: Please note: ??Patients with WBC >100,000 may have falsely elevated Potassium levels. ??For accurate Potassium quantification in these patients send serum separator tube (gold top) for subsequent determinations. ??Contact the Clinical Chemistry Laboratory if there are any questions. Chloride 106 98 - 107 mmol/L [facility] Carbon Dioxide 26 22 - 31 mmol/L [facility] Anion Gap 8 5 - 15 mmol/L [facility] Calcium 8.5 8.5 - 10.5 mg/dL [facility] Est Glomerular Filtration Rate 59(L) >=60 mL/min/1. 73 m?? [facility] Comment: This patient's estimated GFR was [...] In Lab Asa Skaggs MD CHEMISTRY ORDERABLES [facility] [place] [address] * POCT Glucose (09/14/2022 9:51 PM EDT) [facility] Signature Glucose, POC 159 65 - 199 mg/dL [facility] Comment: Supplemental ranges: <140 mg/dL before meals <180 mg/dL all other times of the day Blood 09/14/2022 9:51 PM EDT 09/14/2022 9:51 PM EDT Asa Skaggs MD POINT OF CARE TEST O RDERABLES Performing Organization Address City/[facility] Co de Phone Number [facility] [place] [address] documented in this encounter Visit Diagnoses Diagnosis Diverticulitis- Primary Diverticulitis of colon (without mention of hemorrhage) halfway current use of immunosuppressive drug Diverticulitis Diverticulitis [...] CONTINUOUS, Starting on Thu09/17/22 at 1900, Until Thu09/18/22 at 1816 Restarted 09/18/2022 12:10 PM EDT [...] on Thu09/14/22 at 2200, Until Discontinued, Routine 2008 (Given - Provider: Alla Power RN) 2005 (Given - Provider: Jo-Ann Chen, JADEN) ascorbic acid (Vitamin C) (Vitamin C) tablet 500 mg 500 mg, Oral, 3 TIMES DAILY, First dose on 09/14/22 at 2200, Until Discontinued, Routine 0810 (Given - Provider: Emily Dawkins LPN)1509 (Given - Provider: Jomar Cantor RN)2008 (Given - Provider: Alla Power RN) 0905 (Given - Provider: Margarita Smiley RN)1612 (Given - Provider: Margarita Smiley RN)2004 (Given [...] Chen, JADEN)2342 (New Bag - Provider: Jo-Ann Chen, JADEN) 0342 (Stopped - Provider: Luma Su [...] JADEN)1437 (Given - Provider: Margarita Smiley, JADEN) bisacodyL [...] Intramuscular, EVERY 30 MIN PRN, Starting on Thu23 at 0406, Until Thu09/19/22 at 1746, Low [...] Routine documented in this encounter Care Teams Patient Care Relationship Specialty Start Date End Date Urbano Jimenez DO [address] [place] [address] PCP - General Family Medicine 03/18/22 Ruchi Valles RN Nurse Clinic Transplant Surgery 07/30/15 documented as of this encounter
--- OUTSIDE RECORDS SUMMARY | 2024-05-16 17:17 | XMS_ITS | Encounter Summary ---
Author Organization [facility] [place] [address] Care Team Providers Care Global President Name Role Phone Urbano Jimenez aRy KIRBY Primary Care Provider [phone] Encounter Details Date Type Department Care Team (Late st Contact Info) Description 09/17/2022 External Results [place] [id number] Social History Tobacco Use Types [...] AM EST TH Visit (TeleHealth) Cardiology at [address] [phone] Byron Brown MD [facility] [place] [address] 07/14/2024 10:00 AM EST Hospital Encounter Non-Invasive [place] [phone] Arrived documented as of this encounter Goals [...] filedocumented in this encounter Care Teams Global President Relationship Specialty Start Date End Date Urbano Jimenez DO [address] [place] [address] PCP - General Family Medicine 03/18/22 Ruchi Valles RN Nurse Clinic Transplant Surgery 07/30/15 documented as of this encounter
--- OUTSIDE RECORDS SUMMARY | 2024-05-16 17:17 | XMS_ITS | Encounter Summary ---
Author Organization [facility] Address 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 [facility]). He has no residual defects. [...] 08/25/2016 ??? Prophylactic immunotherapy 09/22/2016 ??? senior care current use of immunosuppressive drug 09/22/2016 ??? [...] EXAM [facility] TO [facility] HR [facility] N/A 05/10/2020 ?? FLUOROSCOPY (WRVU 0.17) performed by Joseph Ang MD at [facility] OR ??? PRO ANASTOMOSIS, AV, ANY SITE Left 05/09/2015 ?? AV FISTULA CREATION, DIRECT HEMODIALYSIS, ANY SITE, EG ASHWINI FISTULA UPPER EXTREMITY performed by Que Amaro MD at [facility] OR ??? PRO CYSTOURETHROSCOPY, URETER CATHETER Left 06/17/2018 ?? CYSTO, RETROGRADE, URETEROPYELOGRAPHY (WRVU 2.37) performed by Edinson Grider III, MD at [facility] OR ??? PRO LAMINEC/FACETECT/FORAMIN, LUMBAR 1 SEG N/A 05/10/2020 ?? LAMINECTOMY, FACETECTOMY & FORAMINOTOMY,LUMBAR, ONE LEVEL (WRVU 15.37) performed by Joseph Ang MD at [facility] OR ??? PRO LAMINOTOMY, LUMBAR DISK, 1 INTRSP N/A 05/10/2020 ?? LAMINOTOMY, DECOMPRESSION, FORAMINOTOMY, LUMBAR (WRVU 13.18) performed by Joseph Ang MD at [facility] OR ??? PRO MICROSURG TECHNIQUES, REQ OPER MICROSCOPE N/A 05/10/2020 ?? MICROSCOPE USE (WRVU 3.46) performed by Joseph Ang MD at [facility] OR ??? PRO REIMPLANT URETER, SINGLE URETER Left 05/20/2016 ?? @URETERONEOCYSTOSTOMY ANASTOMOSIS OF SINGLE URETER TO BLADDER performed by Santosh Arredondo MD [facility] OR ??? PRO REIMPLANT URETER, SINGLE URETER N/A 05/20/2016 ?? @URETERONEOCYSTOSTOMY ANASTOMOSIS OF SINGLE URETER TO BLADDER performed by Akhil Amaro MD at [facility] OR ??? PRO TOTAL KNEE ARTHROPLASTY Right 11/25/2017 ?? TOTAL KNEE ARTHROPLASTY (WRVU 20.72) performed by Breezy Dale MD at [facility] OR ??? PRO TRANSPLANT, PREP CADAVER RENAL GRAFT N/A 09/16/2015 ?? @PREPARATION CADAVERIC RENAL ALLOGRAFT performed by Franko Larkin MD at [facility] OR ??? PRO TRANSPLANTATION OF KIDNEY N/A 09/16/2015 ?? @KIDNEY TRANSPLANT, WITHOUT RECIPIENT NEPHRECTOMY [facility] ??? TISSUE TRANSFER ? kidney ??? US RENAL TRANSPLANT LEFT Left 01/31/2019 ?? US Renal Transplant Left 01/31/2019 [facility] ??? US RENAL TRANSPLANT LEFT Left 02/07/2019 ?? US Renal Transplant Left 02/07/2019 [facility] ? Current Outpatient Medications: [...] Quadrivalent (6-35 Mos) 04/04/2015 ??? Moderna Covid-19 (Furniture Delivery Driver 100mcg) Vaccine 09/05/2020, 10/03/2020, 05/11/2021 ??? Pneumococcal [...] from 05/23/2022 in Solid Organ Transplant at [facility] Weight 103.8 kg (228 lb 12.8 oz) [...] Yellow Yellow Appearance UA Clear Clear Spec [place] UA 1.005 - 1.030 1.020 pH UA [...] ? Immunosuppression -Prograf, Cellcept ?? 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 PO4/Mg - Kphos.??2 tabs bid?? - Magnesium??gluconate [id number] TID ?? Erythrocytosis -??cont' to observe No need of RAAS inhibition , continue hydration Close follow up? Hypertension: BP is??stable;??not on antihypertensive Encourage to check BP at home?? -??on??Flomax ? Hepatitis C -on Harvoni?treatment -Viral load undetectable after treatment??in June 2018? CV disease, AF/Afib Followed by Dr. Brown Long discussion about multiple med problems and prognosis ?? Hyperbilirubinemia Known gall stones and hepatic steatosis with normal liver enzymes in past TB then 2.5 no assessment for pancreatitis But abdominal signs and symptoms transient Suggested evaluation by Dr. Corea for possible cholecystectomy or watchful waiting in anticipation of progression ? d4vypipgd labs f/u 12 months ?? ? Discussion with the patient and/or family concerned the following: ?Diagnostic results or recommended studies ?Prognosis; ?Risks and benefits of management; ?Instructions for management; ?Compliance with treatment; ?Risk factor reduction; ?Patient and family education. ? Total time?25 of 30 min??in direct face to face corporate travel counselor. documented in this encounter Plan of Treatment Upcoming Encounters Date Type Department Care Team (Late st Contact Info) Description 06/22/2024 11:00 AM EST TH Visit (TeleHealth) Cardiology at [address] [address] Byron Brown MD [facility] [place] [address] 07/14/2024 10:00 AM EST Hospital Encounter Non-[place] [address] Arrived documented as of this encounter Goals [...] Blood Result Not Detected Not Detected IU/mL [facility] Comment: Indication for Study: Monitoring BKV DNA Analysis: The ester BKV test is an in vitro nucleic acid amplification tests using real-time polymerase chain reaction (PCR) assay for the quantitative measurement of BK virus (BKV) DNA in human EDTA plasma. Sample: EDTA plasma Method: ester BKV test used with the HyprKey0 platform ([employer]) Linear Range: 21.5 - 1.0 x 10^8 IU/mL (1.33 - 8.00 log IU/mL) Note: The Kirsten ester BKV assay has been cleared by the U.S. Food and Drug Administration for clinical testing. Blood 05/23/2022 9:10 AM EST 05/23/2022 10:53 AM EST Narrative Resulting Agency Comment Spec In Lab Tal Eagle MD MOLECULAR ORDERAB LES [facility] [place] [address] * Tacrolimus level (05/23/2022 9:10 AM EST) Tacrolimus 8.6 ng/mL [facility] Comment: Trough therapeutic [...] CHEMISTRY ORDERAB LES Performing Organization Address [facility] Co de Phone Number [facility] [place] [address] * Reticulocyte Count (05/23/2022 9:10 AM EST) Reticulocyte % 2.0 0.7 - 2.6 % [facility] Retic Abs # 0.090 0.030 - 0.120 x10(6)/mcL [facility] Immature Retic% 12.0 0.0 - 15.6 % [facility] Reticulated Hgb 31.8 31.3 - 40.2 pg [facility] Blood 05/23/2022 9:10 AM EST 05/23/2022 9:17 AM EST Narrative Resulting Agency Comment Spec In Lab Tal Eagle MD HEMATOLOGY ORDERA BLES Performing Organization Address [facility] Phone Number [facility] [place] [address] * (ABNORMAL) Comprehensive metabolic panel (non-fasting) (05/23/2022 9:04 AM EST) Glucose 140 65 - 199 mg/dL [facility] Comment:Diabetes: >=200 mg/d L plus symptoms Blood Urea Nitrogen 21(H) 10 - 20 mg/dL [facility] Creatinine 1.60(H) 0.80 - 1.50 mg/dL [facility] Sodium 141 135 - 145 mmol/L [facility] Potassium 4.3 3.5 - 5.0 mmol/L [facility] [...] 31 mmol/L [facility] Anion Gap 9 5 - 15 mmol/L [facility] Calcium 10.1 8.5 - 10.5 mg/dL [facility] Protein, Total 7.3 6.1 - 8.0 g/dL [facility] Albumin 4.0 3.2 - 5.2 g/dL [facility] Aspartate Aminotransferase 15 0 - 39 unit/L [facility] Alanine Aminotransferase 16 0 - 55 unit/L [facility] Alkaline Phosphatase 80 40 - 130 unit/L [facility] Bilirubin, Total 2.0(H) 0.2 - 1.3 mg/dL [facility] Est Glomerular Filtration Rate 45(L) >=60 mL/min/1. 73 m?? [facility] [...] MD CHEMISTRY ORDERAB LES [facility] [place] [address] * (ABNORMAL) Magnesium (05/23/2022 9:04 AM EST) Magnesium 0.66(L) 0.69 - 1.07 mmol/L [facility] Blood 05/23/2022 9:04 AM EST 05/23/2022 9:21 AM EST Narrative Resulting Agency Comment Spec In Lab Tal Eagle MD CHEMISTRY ORDERAB LES Performing Organization Address [facility] Co de Phone Number [facility] [place] [address] * Phosphorus (05/23/2022 9:04 AM EST) Phosphorus 3.0 2.5 - 4.5 mg/dL [facility] Blood 05/23/2022 9:04 AM EST 05/23/2022 9:21 AM EST Narrative Resulting Agency Comment Spec In Lab Tal Eagle MD CHEMISTRY ORDERAB LES Performing Organization Address [facility] Co de Phone Number [facility] [place] [address] * Uric acid (05/23/2022 9:04 AM EST) Uric Acid 7.5 3.5 - 8.5 mg/dL [facility] Blood 05/23/2022 9:04 AM EST 05/23/2022 9:21 AM EST Narrative Resulting Agency Comment Spec In Lab Tal Eagle MD CHEMISTRY ORDERAB LES Performing Organization Address [facility] Co de Phone Number [facility] [place] [address] * Cholesterol, total (05/23/2022 9:04 AM EST) Cholesterol, Total 71 mg/dL [facility] Comment: Lower Risk: <200 mg/dL Average Risk: 200-239 mg/dL Higher Risk: >zq=209 mg/dL Lipid Interpretation See Note [facility] Comment: Lipid management should be guided by a patient? s ASCVD risk, goals and preferences. ACC/AHA Guidelines recommend high intensity statin if clinical ASCVD or LDL greater than or equal to 190 mg/dL. http://Gocellaurl.com/QQM-PAD-Zfxesuuhu Adults aged 40-75 with LDL 70-189 mg/dL should have their 10 year ASCVD risk estimated with the ACC/AHA ASCVD risk curtain cutter hand http://tools.acc.org/WRHKP-Eoqc-Byyuobwgy/ Statin should be discussed if risk greater [...] MD CHEMISTRY ORDERAB LES Performing Organization Address City/[facility]/ZIP Co de Phone Number [facility] [place] [address] * (ABNORMAL) Protein/Creatinine Ratio, urine (05/23/2022 8:56 AM EST) Creatinine, Urine 125 mg/dL [facility] Protein, Urine 38(H) 0 - 12 mg/dL [facility] Protein / Creatinine Ratio, Urine 0.3 ratio [facility] Urine 05/23/2022 8:56 AM EST 05/23/2022 9:10 AM EST Narrative Resulting Agency Comment Spec In Lab Tal Eagle MD URINE ORDERABLES Performing Organization Address City/[facility]/ZIP Co de Phone Number [facility] [place] [address] * (ABNORMAL) Urinalysis with reflex Culture (05/23/2022 [...] Dipstick Clear Clear [facility] Specific [place] Urine Automated 1.020 1.005 - 1.030 [facility] Color, Urine Dipstick Yellow Yellow [facility] Reflex to Culture No [facility] Clean Catch Urine 05/23/2022 8:56 AM EST 05/23/2022 9:08 AM EST Narrative Resulting Agency Comment Spec In Lab Tal Eagle MD URINE ORDERABLES Performing Organization Address City/State/[facility] Co de Phone Number [facility] [place] [address] documented in this encounter Visit Diagnoses Diagnosis H/O kidney transplant Kidney replaced by transplant Vitamin D deficiency Unspecified vitamin D deficiency senior care current use of immunosuppressive drug Aftercare following organ transplant documented in this encounter Care Teams Marine Steam Fitter Helper Relationship Specialty Start Date End Date Urbano Jimenez DO [address] [place] [address] PCP - General Family Medicine 03/18/22 Ruchi Valles RN Nurse Clinic Transplant Surgery 07/30/15 documented as of this encounter
--- OUTSIDE RECORDS SUMMARY | 2024-05-16 17:17 | XMS_ITS | Encounter Summary ---
[place] [address] Care Team Providers Care Student Specialist Name Role Phone Urbano Jimenez DO Primary Care Provider [phone] Encounter Details Date Type Department Care Team (Late st Contact Info) Description 06/02/2022 Telephone Cardiology at [address] [phone] Urbano Padilla, RN Social History Tobacco Use [...] scheduled for 07/15/2021. Best contact number is [phone]. Note routed to the Structural Heart Team as requested. Karthik Padilla RNsenior policy analyst Team Nurse [facility] documented in this encounter Plan of Treatment Upcoming Encounters Date Type Department Care Team (Late st Contact Info) Description 06/22/2024 11:00 AM EST TH Visit (TeleHealth) Cardiology at [address] [phone] Byron Brown MD [facility] [place] [address] 07/14/2024 10:00 AM EST Hospital Encounter Non[place] [address] Arrived documented as of this [...] filedocumented in this encounter Care Teams Student Specialist Relationship Specialty Start Date End Date Urbano Jimenez DO [address] [facility] [place] [address] PCP - General Family Medicine 03/18/22 Ruchi Valles RN Nurse Clinic Transplant Surgery 07/30/15 documented as of this encounter
--- OUTSIDE RECORDS SUMMARY | 2024-05-16 17:17 | XMS_ITS | Encounter Summary ---
Author Organization [facility] Address [facility] [place] [address] Care Team Providers Care Plastics Patternmaker Name Role Phone Urbano Jimenez DO Primary Care Provider [phone] Encounter Details Date Type Department Care Team (Late st Contact Info) Description 06/02/2022 10:30 AM EST Office Visit Cardiology at [address] [address] Byron Brown MD [facility] [place] [address] Atrial fibrillation, unspecified type; Fatigue, unspecified type [...] from the original note were not included. [facility] [place] [address] CARDIOLOGY/ VASCULAR OUTPATIENT NOTE Cody Bolden Urbano [...] DCCV with an ECG Byron Brown MD, [facility] Cardiovascular Medicine [facility] [address] Clinic [phone] Clinic Team Nurse: [phone] The total time associated with this visit was 30 minutes. documented in this encounter Plan of Treatment Upcoming Encounters Date Type Department Care Team (Late st Contact Info) Description 06/22/2024 11:00 AM EST TH Visit (TeleHealth) Cardiology at [address] [address] Byron Brown MD [facility] DR CARDIOLOGY [place] [id number] 07/14/2024 10:00 AM EST Hospital Encounter Non-[place] [phone] Arrived documented as of this encounter Goals [...] type documented in this encounter Care Teams Plastics Patternmaker Relationship Specialty Start Date End Date Urbano Jimenez DO [address] [place] [address] PCP - General Family Medicine 03/18/22 Ruchi Valles RN Nurse Clinic Transplant Surgery 07/30/15 documented as of this encounter
--- OUTSIDE RECORDS SUMMARY | 2024-05-16 17:17 | XMS_ITS | Encounter Summary ---
Author Organization [facility] [place] [address] Care Team Providers Care Hydraulic Technician Name Role Phone Urbano Jimenez Ray KIRBY Primary Care Provider [phone] Encounter Details Date Type Department Care Team (Late st Contact Info) Description 06/17/2022 Orders Only Cardiology at [address] [phone] Nikolas Loving MD [facility] [place] [address] Social History Tobacco Use Types Packs/Day Years [...] EST TH Visit (TeleHealth) Cardiology at [address] [phone] Byron Brown MD [facility] [place] [address] 07/14/2024 10:00 AM EST Hospital Encounter Non-Invasive [place] [address] Arrived documented as of this encounter Goals [...] filedocumented in this encounter Care Teams Hydraulic Technician Relationship Specialty Start Date End Date Urbano Jimenez DO [address] [place] [address] PCP - General Family Medicine 03/18/22 Ruchi Valles RN Nurse Clinic Transplant Surgery 07/30/15 documented as of this encounter
--- OUTSIDE RECORDS SUMMARY | 2024-05-16 17:17 | XMS_ITS | Encounter Summary ---
Author Organization [facility] [place] [address] Care Team Providers Care Supervisor Winter Name Role Phone Urbano Jimenez Primary Care Provider [phone] Encounter Details Date Type Department Care Team (Late st Contact Info) Description 09/12/2022 Ancillary Procedure Radiology Library at [facility] [place] [address] Tang Jin MD [facility] [address] Social History Tobacco Use Types Packs/Day Years [...] 11:00 AM EST Visit (TeleHealth) Cardiology at [address] [phone] Byron Brown MD [facility] [place] [address] 07/14/2024 10:00 AM EST Hospital Encounter Non-Invasive [place] [address] Arrived documented as of this encounter Goals [...] & Pelvis (09/12/2022 12:00 AM EST) Narrative [facility] - 09/13/2022 5:04 PM EST This exam is auto-finalizing. It's purpose is for storage only. Tang Jin MD IMG FILM LIBRARY ORD ERABLES Performing Organization Address City/State/[facility] Co de Phone Number [place], [place] documented in this encounter Visit Diagnoses Not on filedocumented in this encounter Care Teams Supervisor Winter Relationship Specialty Start Date End Date Urbano Jimenez DO [address] [place] [address] PCP - General Family Medicine 03/18/22 Ruchi Valles RN Nurse Clinic Transplant Surgery 07/30/15 documented as of this encounter
--- OUTSIDE RECORDS SUMMARY | 2024-05-16 17:17 | XMS_ITS | Encounter Summary ---
Author Organization [facility] [place] [address] Care Team Providers Care Signs Cleaner Name Role Phone Urbano Jimenez Ray KIRBY Primary Care Provider [phone] Reason for Visit * Reason Comments Medication Refill Encounter Details Date Type Department Care Team (Late st Contact Info) Description 09/11/2022 Refill [place] [phone] Gurdeep Boston APRN [facility] [place] [address] H/O kidney transplant; Aftercare following organ transplant; [...] EST TH Visit (TeleHealth) Cardiology at [address] [phone] Byron Brown MD [facility] [place] [address] 07/14/2024 10:00 AM EST Hospital Encounter Non-[place] [address] Arrived documented as of this [...] organ transplant 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
--- OUTSIDE RECORDS SUMMARY | 2024-05-16 17:17 | XMS_ITS | Encounter Summary ---
Author Organization [facility] [place] [address] Care Team Providers Care Tugger Operator Name Role Phone Urbano Jimenez Ray KIRBY Primary Care Provider [phone] Reason for Visit * Reason Comments Medication Refill Encounter Details Date Type Department Care Team (Late st Contact Info) Description 09/04/2022 Refill [place] [phone] Gurdeep Boston APRN [facility] [place] [address] H/O kidney transplant; Aftercare following organ transplant; [...] EST TH Visit (TeleHealth) Cardiology at [address] [phone] Byron Brown MD [facility] [place] [address] 07/14/2024 10:00 AM EST Hospital Encounter Non-Invasive Cardiology Lab [place], [place] [...] organ transplant 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
--- OUTSIDE RECORDS SUMMARY | 2024-05-16 17:18 | XMS_ITS | Encounter Summary ---
[place] [address] Care Team Providers Care Biology Lecturer Name Role Phone Urbano Jimenez DO Primary Care Provider [phone] Reason for Visit * Reason Onset Date Comments Other 05/07/2022 Asking if I had called Encounter Details Date Type Department Care Team (Late st Contact Info) Description 05/07/2022 Telephone Cardiology at [address] [phone] Herlinda Li RN Other (Asking if I [...] call him. No messages seen. Number to Shank Stapler Schedulers given. Pt reports a message was left but he accidentally erased it prior to listening. Herlinda Li RN 4A Cardiology documented in this encounter Plan of Treatment Upcoming Encounters Date Type Department Care Team (Late st Contact Info) Description 06/22/2024 11:00 AM EST TH Visit (TeleHealth) Cardiology at [address] [phone] Byron Brown MD [facility] [place] [address] 07/14/2024 10:00 AM EST Hospital Encounter Non[place] [phone] Arrived documented as of this encounter Goals [...] on filedocumented in this encounter Care Teams Biology Lecturer Relationship Specialty Start Date End Date Urbano Jimenez DO [address] [place] [address] PCP - General Family Medicine 03/18/22 Ruchi Valles RN Nurse Clinic Transplant Surgery 07/30/15 documented as of this encounter
--- OUTSIDE RECORDS SUMMARY | 2024-05-16 17:18 | XMS_ITS | Encounter Summary ---
Author Organization [facility] [place] [address] Care Team Providers Care Bread Dough Mixer Name Role Phone Adeel Urbano KIRBY Primary Care Provider Encounter Details Date Type Department Care Team (Late st Contact Info) Description 02/16/2022 External [place] [address] Social History Tobacco Use Types [...] AM EST Visit (TeleHealth) Cardiology at [address] [phone] Byron Brown MD [facility] [place] [address] 07/14/2024 10:00 AM EST Hospital Encounter Non-[place] [address] Arrived documented as of this [...] filedocumented in this encounter Care Teams Bread Dough Mixer Relationship Specialty Start Date End Date Urbano Denis DO [address] [place] [address] PCP - General 09/03/12 03/17/22 Ruchi Valles RN Nurse Clinic Transplant Surgery 07/30/15 documented as of this encounter
--- OUTSIDE RECORDS SUMMARY | 2024-05-16 17:18 | XMS_ITS | Encounter Summary ---
Author Organization [facility] Address [facility] [address] Care Team Providers Care Print Binding And Finishing Worker Name Role Phone Adeel Urbano KIRBY Primary Care Provider Encounter Details Date Type Department Care Team (Late st Contact Info) Description 02/18/2022 External [place] [address] Social History Tobacco Use Types [...] AM EST Visit (TeleHealth) Cardiology at [address] [phone] Byron Brown MD [facility] [place] [address] 07/14/2024 10:00 AM EST Hospital Encounter Non-Invasive [place] [address] Arrived documented as of this [...] * Scan Doc: ECG (02/18/2022) Historical Provider MEDIA MGR SCAN EX T ORDR/RSLT documented in this encounter Visit Diagnoses Not on filedocumented in this encounter Care Teams Print Binding And Finishing Worker Relationship Specialty Start Date End Date Urbano Denis DO [address] [place] [address] PCP - General 09/03/12 03/17/22 Ruchi Valles RN Nurse Clinic Transplant Surgery 07/30/15 documented as of this encounter
--- OUTSIDE RECORDS SUMMARY | 2024-05-16 17:18 | XMS_ITS | Encounter Summary ---
Author Organization [facility] [place] [address] Care Team Providers Care Hospice Admitting Clerk Name Role Phone AdeelUrbano toscano Primary Care Provider [phone] Reason for Visit * Reason Comments Medication Refill Encounter Details Date Type Department Care Team (Late st Contact Info) Description 02/13/2022 Refill [place] [phone] Tal aEgle MD [facility] TR[place] [address] Social History Tobacco Use Types Packs/Day Years [...] EST TH Visit (TeleHealth) Cardiology at [address] [phone] Byron Brown MD [facility] [place] [address] 07/14/2024 10:00 AM [facility] Encounter Non[place] [address] Arrived documented as of this [...] filedocumented in this encounter Care Teams Hospice Admitting Clerk Relationship Specialty Start Date End Date Urbano Deins DO [facility] [address] [facility] [address] [place] [address] PCP - General 09/03/12 03/17/22 Ruchi Valles RN Nurse Clinic Transplant Surgery 07/30/15 documented as of this encounter
--- OUTSIDE RECORDS SUMMARY | 2024-05-16 17:18 | XMS_ITS | Encounter Summary ---
Author Organization [facility] [place] [address] Care Team Providers Care Sweatband Shaper Name Role Phone Urbano Jimenez Ray KIRBY Primary Care Provider [phone] Encounter Details Date Type Department Care Team (Late st Contact Info) Description 04/17/2022 Notes Only Cardiology at [address] [phone] Nazia Coleman RN Social History Tobacco Use [...] procedure instructions; they exhibit understanding. Plan: BATOOL Thu 3 documented in this encounter Plan of Treatment Upcoming Encounters Date Type Department Care Team (Late st Contact Info) Description 06/22/2024 11:00 AM EST TH Visit (TeleHealth) Cardiology at [address] [phone] Byron Brown MD [facility] [place] [address] 07/14/2024 10:00 AM EST Hospital Encounter Non-Invasive [place] [phone] Arrived documented as of this encounter Goals [...] on filedocumented in this encounter Care Teams Sweatband Shaper Relationship Specialty Start Date End Date Urbano Jimenez DO [address] [place] [address] PCP - General Family Medicine 03/18/22 Ruchi Valles RN Nurse Clinic Transplant Surgery 07/30/15 documented as of this encounter
--- OUTSIDE RECORDS SUMMARY | 2024-05-16 17:18 | XMS_ITS | Encounter Summary ---
Author Organization [facility] [place] [address] Care Team Providers Care Ophthalmologist Retina Specialist Name Role Phone AdeelUrbano boland Primary Care Provider [phone] Encounter Details Date Type Department Care Team (Late st Contact Info) Description 02/18/2022 Telephone Cardiology at [address] [phone] Luigi Mathew MD [facility] [place] [address] Social History Tobacco Use Types Packs/Day Years [...] 19:49 Referring Provider: Dr. Easton Patient Location: [facility] Presenting Symptoms per OSH: Mr. Bolden is [...] or examined this patient. Luigi Mathew MD Machine Coremaker PGY-5 [facility] documented in this encounter Plan of Treatment Upcoming Encounters Date Type Department Care Team (Late st Contact Info) Description 06/22/2024 11:00 AM EST TH Visit (TeleHealth) Cardiology at [address] [phone] Byron Brown MD [facility] [place] [address] 07/14/2024 10:00 AM EST Hospital Encounter Non-[place]vasive [place] [address] Arrived documented as of this encounter Goals [...] on filedocumented in this encounter Care Teams Ophthalmologist Retina Specialist Relationship Specialty Start Date End Date Urbano Denis DO [address] [place] [address] PCP - General 09/03/12 03/17/22 Ruchi Valles RN Nurse Clinic Transplant Surgery 07/30/15 documented as of this encounter
--- OUTSIDE RECORDS SUMMARY | 2024-05-16 17:18 | XMS_ITS | Encounter Summary ---
Author Organization [facility] Address [facility] [place] [place] [facility] [place] [address] Care Team Providers Care Naprapath Name Role Phone Perrydeb Urbano Bell DO Primary Care Provider [phone] Encounter Details Date Type Department Care Team (Late st Contact Info) Description 03/18/2022 9:20 AM EDT Office Visit Cardiology at [address] [phone] Tal Diana MD [facility] [place] [address] Atrial fibrillation with RVR - had flutter initially, then fib (Primary Dx); Hypertension secondary to other renal disorders; Coronary artery disease involving [place] heart, unspecified vessel or lesion type, unspecified [...] from the original note were not included. [facility] [place] [address] Structural Heart Disease New Patient Note Primary [...] Cardioversion: No/Yes Anti-Arrhythmics: No/Yes Sleep Apnea: No/Yes [id number] ( HTN 1, Age 1, DM [...] Vitamin D deficiency ??? 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 senior care current use of immunosuppressive drug ??? CAH [...] PRG FLUOROSCOPY EXAM UP TO 1 HR [facility] CARE PROV N/A 05/10/2020 FLUOROSCOPY (WRVU 0.17) performed by Joseph Ang MD at [facility] OR ??? PRO ANASTOMOSIS, AV, ANY SITE Left 05/09/2015 AV FISTULA CREATION, DIRECT HEMODIALYSIS, ANY SITE, EG ASHWINI FISTULA UPPER EXTREMITY performed by Que Amaro MD at [facility] OR ??? PRO CYSTOURETHROSCOPY, URETER CATHETER Left 06/17/2018 CYSTO, RETROGRADE, URETEROPYELOGRAPHY (WRVU 2.37) performed by Edinson Grider III, MD at [facility] ??? PRO LAMINEC/FACETECT/FORAMIN, LUMBAR 1 SEG N/A 05/10/2020 LAMINECTOMY, FACETECTOMY & FORAMINOTOMY,LUMBAR, ONE LEVEL (WRVU 15.37) performed by Joseph Ang MD at [facility] OR ??? PRO LAMINOTOMY, LUMBAR DISK, 1 INTRSP N/A 05/10/2020 LAMINOTOMY, DECOMPRESSION, FORAMINOTOMY, LUMBAR (WRVU 13.18) performed by Joseph Ang MD at [facility] OR ??? PRO MICROSURG TECHNIQUES, REQ OPER MICROSCOPE N/A 05/10/2020 MICROSCOPE USE (WRVU 3.46) performed by Joseph Ang MD at [facility] OR [...] at [facility] OR ??? TISSUE TRANSFER kidney ??? US RENAL TRANSPLANT LEFT Left 01/31/2019 US Renal Transplant Left 01/31/2019 [facility] RAD ULTRASOUND ??? US RENAL TRANSPLANT LEFT Left 02/07/2019 US Renal Transplant Left 02/07/2019 [facility] RAD ULTRASOUND SOCIAL HISTORY: reports that he [...] be decided after discussion withneurologist Dr. Penaloza ([phone]) whom we left a message for recommendations. [...] to speak with his primary neurologist at [facility], Dr. Liu, today by phone. No absolute [...] Diana MD Director, Structural Heart Disease Pager [phone] documented in this encounter Plan of Treatment Upcoming Encounters Date Type Department Care Team (Late st Contact Info) Description 06/22/2024 11:00 AM EST TH Visit (TeleHealth) Cardiology at [address] [phone] Byron Brown MD [facility] [place] [address] 07/14/2024 10:00 AM EST Hospital Encounter Non-Invasive Cardiology Lab [facility] [place] [address] Arrived documented as of this encounter Goals [...] other renal disorders Coronary artery disease involving [place] heart, unspecified vessel or lesion type, unspecified whether angina present Tachy-sakina syndrome Sinoatrial node dysfunction Pacemaker Cardiac pacemaker in situ Aortic stenosis, mild Aortic valve disorders Mitral valve insufficiency, unspecified etiology documented in this encounter Care Teams Naprapath Relationship Specialty Start Date End Date Urbano Jimenez DO [address] [place] [address] [place] [address] PCP - General Family Medicine 03/18/22 Ruchi Valles RN Nurse Clinic Transplant Surgery 07/30/15 documented as of this encounter
--- OUTSIDE RECORDS SUMMARY | 2024-05-16 17:18 | XMS_ITS | Encounter Summary ---
Author Organization [facility] [place] [address] Care Team Providers Care Substation Operator Transforming Name Role Phone Urbano Jimenez Ray KIRBY Primary Care Provider [phone] Encounter Details Date Type Department Care Team (Late st Contact Info) Description 05/08/2022 [place] [phone] Yessica Johnson [place] [facility] [address] Atrial fibrillation with RVR Social History Tobacco [...] st Contact Info) Description 06/22/2024 11:00 AM [facility] Visit (TeleHealth) Cardiology at [address] [phone] Byron Brown MD [facility] [address] 07/14/2024 10:00 AM EST Hospital Encounter [place] [address] Arrived documented as of this encounter Goals [...] fibrillation documented in this encounter Care Teams Substation Operator Transforming Relationship Specialty Start Date End Date Urbano Jimenez DO [address] [place] [address] [place] [address] PCP - General Family Medicine 03/18/22 Ruchi Valles RN Nurse Clinic Transplant Surgery 07/30/15 documented as of this encounter
--- OUTSIDE RECORDS SUMMARY | 2024-05-16 17:18 | XMS_ITS | Encounter Summary ---
[place] [address] Care Team Providers Care Furnace Feeder Name Role Phone Urbano Jimenez DO Primary Care Provider [phone] Encounter Details Date Type Department Care Team (Late st Contact Info) Description 04/30/2022 Telephone Cardiology at [address] [phone] Jena Lombardi Social History Tobacco Use Types [...] have his inclinic PM checks done at [facility]. Message sent to Timothy at [facility] asking for pt to be scheduled for next PM check in Aug 2022. Pt is having a watchman placed on 05/08/22 and we will be checking his device at that time. Jena Lombardi EP Scheduling documented in this encounter Plan of Treatment Upcoming Encounters Date Type Department Care Team (Late st Contact Info) Description 06/22/2024 11:00 AM EST TH Visit (TeleHealth) Cardiology at [address] [phone] Byron Brown MD [facility] [place] [address] 07/14/2024 10:00 AM EST Hospital Encounter Non-Invasive [place] [phone] Arrived documented as of this encounter Goals [...] on filedocumented in this encounter Care Teams Furnace Feeder Relationship Specialty Start Date End Date Urbano Jimenez DO [address] [place] [address] PCP - General Family Medicine 03/18/22 Ruchi Valles RN Nurse Clinic Transplant Surgery 07/30/15 documented as of this encounter
--- OUTSIDE RECORDS SUMMARY | 2024-05-16 17:18 | XMS_ITS | Encounter Summary ---
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 Social History [...] 11:00 AM EST Visit (TeleHealth) Cardiology at [address] [phone] Byron Brown MD [facility] [place] [address] 07/14/2024 10:00 AM EST Hospital Encounter Non-Invasive Cardiology Lab [facility] [place] [address] Arrived documented as of this encounter Goals [...] EDT H/O kidney transplant Vitamin D deficiency 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 PROTEIN/CREATININE RATIO, URINE Routine 03/18/2022 11:01 AM EDT HC PHOSPHORUS, URINE Routine 03/18/2022 11:01 AM EDT H/O kidney transplant Vitamin D deficiency 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 HC MAGNESIUM, URINE Routine 03/18/2022 1 1:01 AM EDT H/O kidney transplant Vitamin D deficiency USP current use of immunosuppressive drug URINALYSIS WITH REFLEX CULTURE Routine 03/18/2022 11:01 AM EDT COVID-19 SPIKE ANTIBODY Routine 03/18/2022 10:58 AM EDT LIPID PANEL (NO REFLEX) Routine 03/18/2022 10:58 AM EDT HC PARATHYROID HORMONE(PTH INTACT Routine 03/18/2022 10:58 AM EDT H/O kidney transplant Vitamin D deficiency 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 HC BK VIRUS QUANT PCR,PLASMA Routine 03/18/2022 10:58 AM EDT H/O kidney transplant Vitamin D deficiency USP current use of immunosuppressive drug HEMOGRAM Routine 03/18/2022 10:58 AM EDT DIFFERENTIAL, AUTOMATED Routine 03/18/2022 10:58 AM EDT GOLD TUBE HOLD Routine 03/18/2022 10:58 AM EDT H/O kidney transplant Vitamin D deficiency 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 URIC ACID Routine 03/18/2022 10:58 AM EDT PHOSPHORUS Routine 03/18/2022 10:58 AM EDT MAGNESIUM Routine 03/18/2022 10:58 AM EDT HC HEMOGLOBIN A1C Routine 03/18/2022 10: 58 AM EDT H/O kidney transplant Vitamin D deficiency USP current use of immunosuppressive drug CHOLESTEROL, TOTAL Routine 03/18/2022 10 :58 AM EDT COMPREHENSIVE METABOLIC PANEL Routine 03/18/2022 10:58 AM EDT documented in this encounter Results * Urinalysis Microscopic Exam (03/18/2022 11:01 AM EDT) RBC, Urine 2 0 - 3 /HPF [facility] WBC, Urine 1 0 - 3 /HPF [facility] Urine Urine / Unknown 03/18/2022 1 1:01 AM EDT 03/18/2022 11:08 AM EDT Narrative Resulting Agency Comment Spec In Lab Tal Eagle MD URINE ORDERABLES [facility] [place] [address] * (ABNORMAL) Protein/Creatinine Ratio, urine (03/18/2022 11:01 AM EDT) Creatinine, Urine 146 mg/dL [facility] Protein, Urine 54(H) 0 - 12 mg/dL [facility] Protein / Creatinine Ratio, Urine 0.4 ratio [facility] Urine Urine / Unknown 03/18/2022 1 1:01 AM EDT 03/18/2022 11:20 AM EDT Narrative Resulting Agency Comment Spec In Lab Tal Eagle MD URINE ORDERABLES [facility] [place] [address] * (ABNORMAL) Urinalysis with reflex Culture (03/18/2022 [...] mg/dL [facility] pH, Urn (dipstick) 6.5 5.0 - 8.0 [facility] Blood, Urine Dipstick Negative Negative mg/dL [facility] Ketone, Urine Dipstick Trace(A) Negative mg/dL [facility] Nitrite, Urine Dipstick Negative Negative [facility] Leukocytes, Urine Dipstick Negative Negative [facility] Appearance, Urine Dipstick Clear Clear [facility] Specific [place] Urine Automated 1.022 1.005 - 1.030 [facility] Color, Urine Dipstick Dark Yellow Yellow [facility] Reflex to Culture No [facility] Urine Urine / Unknown 03/18/2022 1 1:01 AM EDT 03/18/2022 11:08 AM EDT Narrative Resulting Agency Comment Spec In Lab Tal Eagle MD URINE ORDERABLES Performing Organization Address City/[facility]/ZIP Co de Phone Number [facility] [place] [address] * Calcium Creatinine Ratio, random urine (03/18/2022 11:01 AM EDT) Calcium, Urine 11.9 mg/dL [facility] Creatinine, Urine 145 mg/dL [facility] Calcium / Creatinine Ratio, Urine 0.08 ratio [facility] Urine 03/18/2022 11:0 1 AM EDT 03/18/2022 11:20 AM EDT Narrative Resulting Agency Comment Spec In Lab Tal Eagle MD URINE ORDERABLES Performing Organization Address City/[facility]/ZIP Co de Phone Number [facility] [place] [address] * Magnesium, urine, random (03/18/2022 11:01 AM EDT) Magnesium, Urine 2.28 mmol/L [facility] Urine 03/18/2022 11:0 1 AM EDT 03/18/2022 11:20 AM EDT Narrative Resulting Agency Comment Spec In Lab Tal Eagle MD URINE ORDERABLES Performing Organization Address City/[facility]/ZIP Co de Phone Number [facility] [place] [address] * Phosphorus, urine, random (03/18/2022 11:01 AM EDT) Phosphorus, Urine 26.0 mg/dL [facility] Urine 03/18/2022 11:0 1 AM EDT 03/18/2022 11:20 AM EDT Narrative Resulting Agency Comment Spec In Lab Tal Eagle MD URINE ORDERABLES Performing Organization Address City/[facility]/ZIP Co de Phone Number [facility] [place] [address] * Lavender Tube HOLD (03/18/2022 10:58 AM EDT) Lavender Hold Sample in lab. [facility] Blood Venous Draw / Unknown 03/18/2022 10:58 AM EDT 03/18/2022 11:20 AM EDT Tal Eagle MD HEMATOLOGY ORDERA BLES Performing Organization Address City/[facility]/ZIP Co de Phone Number [facility] [place] [address] * Lavender Tube HOLD (03/18/2022 10:58 AM EDT) Lavender Hold Sample in lab. [facility] Blood Venous Draw / Unknown 03/18/2022 10:58 AM EDT 03/18/2022 11:18 AM EDT Tal Eagle MD HEMATOLOGY ORDERA BLES Performing Organization Address City/[facility]/ZIP Co de Phone Number [facility] [place] [address] * Lavender Tube HOLD (03/18/2022 10:58 AM EDT) Lavender Hold Sample in lab. [facility] Blood Venous Draw / Unknown 03/18/2022 10:58 AM EDT 03/18/2022 11:18 AM EDT Tal Eagle MD HEMATOLOGY ORDERA BLES Performing Organization Address [facility] Co de Phone Number [facility] [place] [address] * Lipid Panel (No Reflex) (03/18/2022 10:58 AM EDT) Cholesterol, Total 81 mg/dL [facility] Comment: Lower Risk: <200 mg/dL Average Risk: 200-239 mg/dL Higher Risk: >yg=715 mg/dL Triglyceride 115 mg/dL [facility] Comment: Average Risk/Lower Risk: <150 mg/dL Borderline High Risk: 150-199 mg/dL High Risk: 200-499 mg/dL Very High Risk: >ps=388 mg/dL HDL Cholesterol 36 mg/dL [facility] Comment: Males: ?? Higher Risk: <40 mg/dL Females: ?? Higher Risk: <50 mg/dL LDL Cholesterol 22 mg/dL [facility] Comment: Lowest Risk: <100 mg/dL Lower Risk: 100-129 mg/dL Borderline High Risk: 130-159 mg/dL High Risk: 160-189 mg/dL Very High Risk: >fi=680 mg/dL Cholesterol/HDL Ratio 2.2 ratio [facility] Lipid Interpretation See Note [facility] Comment: Lipid management should be guided by a patient? s ASCVD risk, goals and preferences. ACC/AHA Guidelines recommend high intensity statin if clinical ASCVD or LDL greater than or equal to 190 mg/dL. http://sambaash.com/OHQ-YNV-Rjeransbl Adults aged 40-75 with LDL 70-189 mg/dL should have their 10 year ASCVD risk estimated with the ACC/AHA ASCVD risk bomb technician http://tools.acc.org/IKITV-Xqmf-Tjaftyzua/ Statin should be discussed if risk greater [...] MD CHEMISTRY ORDERAB LES [facility] [place] [id number] * COVID-19 Jah Antibody (03/18/2022 10:58 AM EDT) SARS-CoV-2 Jah Ab Detected [facility] Comment: This is a total [...] be due to a past infection with zod-HVTL-XtQ-2 coronavirus strains, such as coronavirus HKU1, NL63, OC43, or 229E. This test was performed using the Elecsys Rjsb-GOJF-UxE-2 S total antibody assay on the Kirsten June e801 analyzer. This serology test is available following FDA Emergency Use Authorization, however it has not been reviewed by the FDA, nor is it FDA cleared or approved. The performance characteristics of this test were determined by the Department of Pathology and Laboratory Medicine at [facility]. The laboratory is certified under the Clinical [...] fact sheets at the following FDA website: https://www.fda.gov/medical-devices/uocssyjomnv-tdphdle-2383-pxrdl-52-ljoywikqz- use-a jiifqsrvjiifj-nzknipg-wegukrj/weutu-nidvotnqrcx-saoj Blood Venous Draw / Unknown 03/18/2022 10:58 AM EDT 03/18/2022 11:13 AM EDT Tal Eagle MD CHEMISTRY ORDERAB LES [facility] [place] [address] * Tacrolimus level (03/18/2022 10:58 AM EDT) Tacrolimus 8.0 ng/mL [facility] Comment: Trough therapeutic range is [...] MD CHEMISTRY ORDERAB LES Performing Organization Address City/[facility]/ZIP Co de Phone Number [facility] [place] [address] * Cholesterol, total (03/18/2022 10:58 AM EDT) [facility] Cholesterol, Total 81 mg/dL [facility] Comment: Lower Risk: <200 mg/dL Average Risk: 200-239 mg/dL Higher Risk: >xj=521 mg/dL Lipid Interpretation See Note [facility] Comment: Lipid management should be guided by a patient? s ASCVD risk, goals and preferences. ACC/AHA Guidelines recommend high intensity statin if clinical ASCVD or LDL greater than or equal to 190 mg/dL. http://sambaash.com/ZZT-DAU-Jbcwilzsr Adults aged 40-75 with LDL 70-189 mg/dL should have their 10 year ASCVD risk estimated with the ACC/AHA ASCVD risk bomb technician http://tools.acc.org/HWQTC-Zmxr-Mrymseccj/ Statin should be discussed if risk greater [...] MD CHEMISTRY ORDERAB LES Performing Organization Address City/[facility]/ZIP Co de Phone Number [facility] [place] [address] * (ABNORMAL) Comprehensive metabolic panel (non-fasting) (03/18/2022 10:58 AM EDT) Glucose 134 65 - 199 mg/dL [facility] Comment:Diabetes: >=200 mg/d L plus symptoms Blood Urea Nitrogen 22(H) 10 - 20 mg/dL [facility] Creatinine 1.55(H) 0.80 - 1.50 mg/dL [facility] Sodium 142 135 - 145 mmol/L [facility] Potassium 4.5 3.5 - 5.0 mmol/L [facility] Comment: Please note: ??Patients with WBC >100,000 may have falsely elevated Potassium levels. ??For accurate Potassium quantification in these patients send serum separator tube (gold top) for subsequent determinations. ??Contact the Clinical Chemistry Laboratory if there are any questions. Chloride 102 98 - 107 mmol/L [facility] Carbon Dioxide 30 22 - 31 mmol/L [facility] Anion Gap 10 5 - 15 mmol/L [facility] Calcium 10.1 8.5 - 10.5 mg/dL [facility] Protein, Total 6.9 6.1 - 8.0 g/dL [facility] Albumin 4.3 3.2 - 5.2 g/dL [facility] Aspartate Aminotransferase 21 0 - 39 unit/L [facility] Alanine Aminotransferase 24 0 - 55 unit/L [facility] Alkaline Phosphatase 78 40 - 130 unit/L [facility] Bilirubin, Total 3.1(H) 0.2 - 1.3 mg/dL [facility] Est Glomerular Filtration Rate 47(L) >=60 mL/min/1. 73 m?? [facility] Comment: This patient's estimated GFR [...] MD CHEMISTRY ORDERAB LES [facility] [address] * Uric acid (03/18/2022 10:58 AM EDT) Uric Acid 8.1 3.5 - 8.5 mg/dL [facility] Blood Venous Draw / Unknown 03/18/2022 10:58 AM EDT 03/18/2022 11:13 AM EDT Narrative Resulting Agency Comment Spec In Lab Tal Eagle MD CHEMISTRY ORDERAB LES Performing Organization Address City/[facility]/ZIP Co de Phone Number [facility] [place] [address] * Magnesium (03/18/2022 10:58 AM EDT) Magnesium 0.76 0.69 - 1.07 mmol/L [facility] Blood Venous Draw / Unknown 03/18/2022 10:58 AM EDT 03/18/2022 11:13 AM EDT Narrative Resulting Agency Comment Spec In Lab Tal Eagle MD CHEMISTRY ORDERAB LES Performing Organization Address City/[facility]/ZIP Co de Phone Number [facility] [place] [address] * Phosphorus (03/18/2022 10:58 AM EDT) Phosphorus 2.5 2.5 - 4.5 mg/dL [facility] Blood Venous Draw / Unknown 03/18/2022 10:58 AM EDT 03/18/2022 11:13 AM EDT Narrative Resulting Agency Comment Spec In Lab Tal Eagle MD CHEMISTRY ORDERAB LES [facility] [address] * Differential, Automated (03/18/2022 10:58 AM EDT) Neutrophil % 66.2 % [facility] Neutrophil Absolute 5.21 1.70 - 6.10 x10(3)/[facility] Lymph % 20.7 % [facility] Lymphocytes Abs 1.6 0.9 - 3.2 x10(3)/[facility] Monocyte % 8.3 % [facility] Monocyte Abs 0.6 0.3 - 0.9 x10(3)/[facility] Eos % 3.6 % [facility] Eosinophils Abs 0.3 0.0 - 0.4 x10(3)/[facility] Basophil % 0.8 % [facility] Baso Absolute 0.1 0.0 - 0.1 x10(3)/[facility] Immature Gran % 0.40 % [facility] Comment: Immature granulocytes(IG's)percentage and absolute count will include metamyelocytes, myelocytes, and promyelocytes. Blood smears from CBCs yielding IG's will be scanned manually for concordance. If this scan disagrees with the automated IG or if promyelocytes are noted, a manual differential will be performed. Immature Gran Absolute 0.03 0.00 - 0.04 x10(3)/[facility] Blood Venous Draw / Unknown 03/18/2022 10:58 AM EDT 03/18/2022 11:13 AM EDT Narrative Resulting Agency Comment Spec In Lab Tal Eagle MD HEMATOLOGY ORDERA BLES [facility] [address] * Hemogram (03/18/2022 10:58 AM EDT) Pathologist [facility] White Blood Cell 7.9 4.0 - 9.5 x10(3)/[facility] Red Blood Cell 4.83 4.58 - 5.54 x10(6)/[facility] Hemoglobin 14.9 13.7 - 16.5 g/dL [facility] Hematocrit 42.9 40.5 - 48.5 % [facility] Mean Cell Volume 88.8 82.9 - 93.1 [facility] Mean Cell Hemoglobin 30.8 27.5 - 32.1 pg [facility] Mean Cell Hemoglobin Concentration 34.7 32.0 - 35.7 g/dL [facility] Platelet 248 145 - 357 x10(3)/[facility] RDW Standard Deviation 42.1 36.0 - 45.0 [facility] RDW coefficient of variation 13.0 11.4 - 13.8 % [facility] Mean Platelet Volume 9.5 7.6 - 12.9 [facility] NRBC% auto 0.0 % [facility] NRBC Absolute 0.000 0.000 - 0.000 x10(3)/[facility] Blood Venous Draw / Unknown 03/18/2022 10:58 AM EDT 03/18/2022 11:13 AM EDT Narrative Resulting Agency Comment Spec In Lab Tal Eagle MD HEMATOLOGY ORDERA BLES [facility] [address] * (ABNORMAL) Hemoglobin A1c (03/18/2022 10:58 AM EDT) Hemoglobin A1c 6.6(H) 4.3 - 5.6 % [facility] [...] Mellitus, Diabetes Care 2013; 36: Suppl. 1, M23-18 Estimated Average Glucose See note mg/dL [facility] Comment: Estimated Average Glucose not [...] into estimated average glucose values. ??Diabetes Care 2008:31(8):2252-9979. Blood 03/18/2022 10:5 8 AM EDT 03/18/2022 11:17 AM EDT Narrative Resulting Agency Comment Spec In Lab Tal Eagle MD CHEMISTRY ORDERAB LES Performing Organization Address City/[facility]/ZIP Co de Phone Number [facility] [place] [address] * Reticulocyte Count (03/18/2022 10:58 AM EDT) Reticulocyte % 1.8 0.7 - 2.6 % [facility] Retic Abs # 0.080 0.030 - 0.120 x10(6)/mcL [facility] Immature Retic% 10.0 0.0 - 15.6 % [facility] Reticulated Hgb 35.2 31.3 - 40.2 pg [facility] Blood 03/18/2022 10:5 8 AM EDT 03/18/2022 11:15 AM EDT Narrative Resulting Agency Comment Spec In Lab Tal Eagle MD HEMATOLOGY ORDERA BLES Performing Organization Address [facility]/ZIP Co de Phone Number [facility] [place] [address] * PTH (03/18/2022 10:58 AM EDT) Parathyroid Hormone 38 15 - 65 pg/mL [facility] Blood 03/18/2022 10:5 8 AM EDT 03/18/2022 11:17 AM EDT Narrative Resulting Agency Comment Spec In Lab Tal Eagle MD CHEMISTRY ORDERAB LES Performing Organization Address City/[facility]/ZIP Co de Phone Number [facility] [place] [address] * Vitamin D, 25-Hydroxy (03/18/2022 10:58 AM EDT) Vitamin D Total 25 OH 39 21 - 100 ng/mL [facility] Vit D Interp Sufficient [facility] Blood 03/18/2022 10:5 8 AM EDT 03/18/2022 11:13 AM EDT Narrative Resulting Agency Comment Spec In Lab Tal Eagle MD CHEMISTRY ORDERAB LES Performing Organization Address [facility]/ZIP Co de Phone Number [facility] [place] [address] * 1,25-dihydroxycholecalciferol (03/18/2022 10:58 AM EDT) Vit D 1,25 Dihydroxy (NOVEMBER) 43 18 - 64 pg/mL [facility] Comment: ADDITIONAL INFORMATION This test was developed and its performance characteristics determined by [facility] in a manner consistent with CLIA requirements. This test has not been cleared or approved by the U.S. Food and Drug Administration. Test Performed by: [facility] - [address] [address] Heavy Threader: Edinson Garcia M.D. Ph.D.; CLIA# [id number] Blood 03/18/2022 10:5 8 AM EDT 03/18/2022 1:56 PM EDT Narrative Resulting Agency Comment Spec In Lab Tal Eagle MD LAB SEND OUT ORDE RABLES Performing Organization Address [facility] Co de Phone Number [facility] [place] [address] * Gold Tube HOLD (03/18/2022 10:58 AM EDT) [facility] Gold Hold Sample in lab. [facility] Blood 03/18/2022 10:5 8 AM EDT 03/18/2022 11:13 AM EDT Tal Eagle MD CHEMISTRY ORDERAB LES Performing Organization Address [facility]/ZIP Co de Phone Number [facility] [place] [address] * BKV Quant Blood (03/18/2022 10:58 AM EDT) BKV Blood Result Not Detected Not Detected IU/mL [facility] Comment: Indication for Study: Monitoring BKV DNA Analysis: The june BKV test is an in vitro nucleic acid amplification tests using real-time polymerase chain reaction (PCR) assay for the quantitative measurement of BK virus (BKV) DNA in human EDTA plasma. Sample: EDTA plasma Method: june BKV test used with the [employer]0 platform ([employer]) Linear Range: 21.5 - 1.0 x 10^8 IU/mL (1.33 - 8.00 log IU/mL) Note: The Kirsten june BKV assay has been cleared by the U.S. Food and Drug Administration for clinical testing. 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
--- OUTSIDE RECORDS SUMMARY | 2024-05-16 17:18 | XMS_ITS | Encounter Summary ---
Author Organization [facility] [place] [address] Care Team Providers Care Sail Maker Name Role Phone Urbano Denis DO Primary Care Provider [phone] Encounter Details Date Type Department Care Team (Late st Contact Info) Description 02/16/2022 [place] [phone] Yash Chang MD [facility] [place] [address] Social History Tobacco Use Types Packs/Day Years [...] Referring provider: Rolando Cole MD Patient location: [facility] Past medical history: Atrial Flutter CAD [...] from a formal TTE. If discharged from [facility] will attempt to arrange at [facility]. Yash Chang MD 02/16/2022 2:13 PM documented in this encounter Plan of Treatment Upcoming Encounters Date Type Department Care Team (Late st Contact Info) Description 06/22/2024 11:00 AM EST Visit (TeleHealth) Cardiology at [address] [phone] Byron Brown MD [facility] [place] [address] 07/14/2024 10:00 AM EST Hospital Encounter Non-[place] [address] Arrived documented as of this encounter Goals [...] on filedocumented in this encounter Care Teams Sail Maker Relationship Specialty Start Date End Date Urbano Denis DO [address] [place] [address] PCP - General 09/03/12 03/17/22 Ruchi Valles RN Nurse Clinic Transplant Surgery 07/30/15 documented as of this encounter
--- OUTSIDE RECORDS SUMMARY | 2024-05-16 17:18 | XMS_ITS | Encounter Summary ---
[place] [address] Care Team Providers Care Veterans' Counselor Name Role Phone Urbano Denis DO Primary Care Provider Reason for Referral * Diagnostic Test (Routine) - Closed Specialty Diagnoses / Procedures Referred By Contac t Referred To Contact Cardiology Diagnoses Tachy-roman syndrome Procedures Echocardiogram Transthoracic Shaq Damon MD [facility] [place] [address] [facility] [place] [address] Referral ID Status Reason Start Date Expiration Date V isits Requested Visits Authorized [id number] Closed Specialty Service Requested 02/19/2022 04/19/2022 1 1 Reason for Visit * Diagnostic Test (Routine) - Closed Specialty Diagnoses / Procedures Referred By Contpaula t Referred To Contact Cardiology Diagnoses Tachy-roman syndrome Procedures Echocardiogram Transthoracic Shaq Damon MD [facility] [place] [address] [facility] [place] [address] Referral ID Status Reason Start Date Expiration Date V isits Requested Visits Authorized [id number] Closed Specialty Service Requested 02/19/2022 04/19/2022 1 1 Encounter Details Date Type Department Care Team (Late st Contact Info) Description 02/19/2022 12:34 PM EDT - 02/19/2022 11:59 PM EDT Hospital Encounter Non-Invasive Cardiology Lab [facility] [place] [address] Shaq Damon MD [facility] [place] [address] Tachy-roman syndrome Discharge Disposition: Home Social History [...] EST TH Visit (TeleHealth) Cardiology at [address] [phone] Shaq Damon MD [facility] [place] [address] 07/14/2024 10:00 AM EST Hospital Encounter Non-Invasive [place] [address] Arrived documented as of this encounter Goals Goal Patient Goal Type Associated Problems Recent Progress Patient-Stated? Author [facility] Medication Compliance and Understanding Patient Facing Action Plan On track( 017 10:41 AM EDT) Selena Scott [facility] Note: Patient [...] Name: FUADRAMÓN ETHEL P ? Study Date: 02/19/2022 01:02 PM ?BP: 152/81 mmHg ?Patient Location: 4A ? HR: 68 : 1950 ?Height: 180 cm ? Account: [id number] Age: 71 yrs ?Weight: 103 kg Gender: [...] is moderate mitral regurgitation. Procedure Limited - 36394. Doppler - 76478. Color Doppler - 80249. Satisfactory quality. There is a pacemaker rhythm. [...] HR: 68 : 1950 Height: 180 cm Account:[id number] Age: 71 yrs Weight: 103 kg Gender: [...] is moderate mitral regurgitation. Procedure Limited - 94804. Doppler - 25166. Color Doppler - 14880. Satisfactoryquality. There is a pacemaker rhythm. Left [...] dysfunction documented in this encounter Care Teams Veterans' Counselor Relationship Specialty Start Date End Date Urbano Denis DO [address] [place] [address] PCP - General 09/03/12 03/17/22 Ruchi Valles RN Nurse Clinic Transplant Surgery 07/30/15 documented as of this encounter
--- OUTSIDE RECORDS SUMMARY | 2024-05-16 17:18 | XMS_ITS | Encounter Summary ---
Author Organization [facility] Address [facility] [place] [address] Care Team Providers Care Manager Oracle Name Role Phone Urbano Jimenez Ray KIRBY Primary Care Provider [phone] Encounter Details Date Type Department Care Team (Late st Contact Info) Description 04/01/2022 Orders Only Cardiology at [address] [phone] Mayco Barnes PA [facility] [place] [address] Atrial fibrillation with RVR Social History Tobacco [...] 11:00 AM EST Visit (TeleHealth) Cardiology at [address] [phone] Byron Brown MD [facility] [place] [address] 07/14/2024 10:00 AM EST Hospital Encounter Non[place] [address] Arrived documented as of this encounter Goals [...] documented in this encounter Care Teams Manager Oracle Relationship Specialty Start Date End Date Urbano Jimenez DO [facility] [place] [address] PCP - General Family Medicine 03/18/22 Ruchi Valles RN Nurse Clinic Transplant Surgery 07/30/15 documented as of this encounter
--- OUTSIDE RECORDS SUMMARY | 2024-05-16 17:18 | XMS_ITS | Encounter Summary ---
Author Organization [facility] [place] [address] Care Team Providers Care Life Tester [employer] Name Role Phone Urbano Denis DO Primary Care Provider [phone] Reason for Visit * Consultation (Routine) - Closed Specialty Diagnoses / Procedures Referred By Contact Referred To Contact Electrophysiology / Cardiology Diagnoses Tachy-roman syndrome Tachy-roman syndrome Leela Acosta MD [facility] [address] [facility] Cardiology [address]a [address] [place] [phone] Referral ID Status Reason Start Date Expiration Date V isits Requested Visits Authorized [id number] Closed Consult, Test & Treat 02/04/2022 02/04/2023 1 1 Encounter Details Date Type Department Care Team (Late st Contact Info) Description 02/12/2022 11:00 AM EDT Office Visit Cardiology at [address] [phone] Elisha Amaya RN Tachy-roman syndrome [...] pacemaker and Watchman were shown. PCP:Urbano Denis, Stitchdown Thread Laster: Dr Brown Final Parameters at implant: ? 1. Medtronic Geneva XT DR LOULOU Model #W1DR01, Serial # [id number] Atrial lead ?? 1. Medtronic CapsureFix Model# 5076-45 cm Serial# [id number] ??? Bipolar, steroid-tipped, active-fixation IS-1 lead ??? Access: ? Right Axillary vein ??? Location ? Right atrial appendage ??? F wave, pacemaker: ?? 0.6 mV ??? Pacing threshold, pacemaker: N/A (pt in atrial flutter) ??? Impedance, pacemaker: ??437 Ohms ??? Diaphragmatic Stim. @ 8V: ??No Ventricular electrode: ?? Medtronic CapsureFix Model# 5076-52 cm Serial# [id number] ??? Bipolar, steroid-tipped, active-fixation IS-1 lead ??? Access: ? Right Axillary vein ??? Location: ?Right ventricular apical septum ??? R wave, pacemaker: ?11.1 mV ??? Pacing threshold, pacemaker: 0.5 V at 0.4 ms ??? Impedance, pacemaker: ??607 ohms ??? Diaphragmatic Stim. @ 8V : No Settings: Underlying rhythm: AF with ventricular rates 40-80's Presenting: AF/VS/TILE AND MARBLE SETTER Atrial Lead: P wave: 0.4 mV Fib wave Impedance: 399 ohms Threshold: not performed Ventricular Lead: R wave: 7.9 mV Impedance: 418 ohms Threshold: 0.75V@0.4 ms Since January Heart rate histograms: reasonable distribution Pacing percentages: AP 6.3%; TILE AND MARBLE SETTER 61.5 % Mode switch episodes: 214 for a 97.2% burden- with average ventricular rates 60- 90's bpm, some atrial undersensing observed suggesting burden is greater. VHR: None PVC per hour: 3.3 singles and 0.5 of the 2-4 beat runs Battery voltage: 3.21V(CONDENSER OPERATOR:2.63 V) Est 12.6 years remaining Wound assessment: [...] EST TH Visit (TeleHealth) Cardiology at [address] [phone] Byron Brown MD [facility] [place] [address] 07/14/2024 10:00 AM EST Hospital Encounter Non-[place] [address] Arrived Scheduled Referrals Name Type [...] dysfunction documented in this encounter Care Teams Life Tester [employer] Relationship Specialty Start Date End Date Urbano Denis DO [address] [place] [address] PCP - General 09/03/12 03/17/22 Ruchi Valles RN Nurse Clinic Transplant Surgery 07/30/15 documented as of this encounter
--- OUTSIDE RECORDS SUMMARY | 2024-05-16 17:18 | XMS_ITS | Encounter Summary ---
Author Organization [facility] Address [facility] [place] [address] Care Team Providers Care Dwarf Tree Grower Name Role Phone Urbano Jimenez Ray KIRBY Primary Care Provider [phone] Reason for Visit * Reason Onset Date Comments Medication Refill 04/15/2022 Encounter Details Date Type Department Care Team (Late st Contact Info) Description 04/15/2022 Refill [place] [phone] Tal Eagle MD [facility] [place] [address] Social History Tobacco Use Types Packs/Day Years [...] AM EST TH Visit (TeleHealth) Cardiology at [address] [phone] Byron Brown MD [facility] [place] [address] 07/14/2024 10:00 AM EST Hospital Encounter Non-Invasive [place] [phone] Arrived documented as of this encounter Goals [...] on filedocumented in this encounter Care Teams Dwarf Tree Grower Relationship Specialty Start Date End Date Urbano Jimenez DO [address] [place] [address] [place] [address] PCP - General Family Medicine 03/18/22 Ruchi Valles RN Nurse Clinic Transplant Surgery 07/30/15 documented as of this encounter
--- OUTSIDE RECORDS SUMMARY | 2024-05-16 17:18 | XMS_ITS | Encounter Summary ---
Author Organization [facility] [place] [address] Care Team Providers Care Gas Mask Assembler Name Role Phone Urbano Jimenez DO Primary Care Provider [phone] Reason for Visit * Auth/Cert Specialty Diagnoses / Procedures Referred By Contac t Referred To Contact Diagnoses Persistent atrial fibrillation [I48.19] Watchman Procedures PRO PERQ CLSR TCAT L ATR APNDGE W/ENDOCARDIAL IMPLNT CARDIAC CATHETERIZATION @PERQ TRANSCATH CLOSURE LEFT ATRIAL APPENDAGE W ENDOCARDIAL IMPLANT, INC RAD S&I (WRVU 14) TRANSESOPHAGEAL ECHO DURING CATH/EP PROCEDURE Tal Diana MD [facility] [place] [address] [facility] Referral ID Status Reason Start Date Expiration Date Visits Re quested Visits Authorized [id number] 1 1 Encounter Details Date Type Department Care Team (Late st Contact Info) Description 05/08/2022 11:40 AM EDT Anesthesia [place] [address] Aldo Montes MD [facility] [place] [address] Bladimir Zee CRNA [facility] [place] [address] Anesthesia Record Procedure Summary Procedure Name Responsible [...] 0934; median cubital vein (antecubital fossa), right; pnlj-ven-mtrqbs catheter system; Anatomical Landmarks; 20 gauge; Jeffy [...] CRNA LDA Cath/EP Sheath 05/08/22; 1222; 14 Belarusian (Fr); Right; Femoral; Venous 05/08/22 1222 by [...] Procedure Summary Date: 05/08/22 Room / Location: [facility]IP[facility] HELPER [address] [place] [address] CATH LABS Anesthesia Start: 1140 Anesthesia Stop: [...] All Anesthesia Providers: Anesthesiologist: Aldo Montes MD CHILD DEVELOPMENT ASSOCIATE TEACHER: Bladimir Zee CRNA Vitals Value Taken Time BP 120/90 05/08/22 1525 Temp Pulse 61 05/08/22 1528 Resp 16 05/08/22 1528 SpO2 97 % 05/08/22 1528 Pain Level 0 05/08/22 1515 Vitals shown include unvalidated device data. 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 Prophylactic immunotherapy 09/22/2016 ??? [facility] current use of immunosuppressive drug 09/22/2016 ??? [...] PRG FLUOROSCOPY EXAM UP TO 1 HR [facility] CARE PROV N/A 05/10/2020 FLUOROSCOPY (WRVU 0.17) performed by Joseph Ang MD at [facility] MAIN OR ??? PRO ANASTOMOSIS, AV, ANY SITE Left 05/09/2015 AV FISTULA CREATION, DIRECT HEMODIALYSIS, ANY SITE, EG ASHWINI FISTULA UPPER EXTREMITY performed by Que Amaro MD at [facility] MAIN OR ??? PRO CYSTOURETHROSCOPY, URETER CATHETER Left 06/17/2018 CYSTO, RETROGRADE, URETEROPYELOGRAPHY (WRVU 2.37) performed by Edinson Grider III, MD at [facility] [place] ??? PRO LAMINEC/FACETECT/FORAMIN, LUMBAR 1 SEG N/A 05/10/2020 LAMINECTOMY, FACETECTOMY & FORAMINOTOMY,LUMBAR, ONE LEVEL (WRVU 15.37) performed by Joseph Ang MD at [facility] MAIN OR ??? PRO LAMINOTOMY, LUMBAR DISK, 1 INTRSP N/A 05/10/2020 LAMINOTOMY, DECOMPRESSION, FORAMINOTOMY, LUMBAR (WRVU 13.18) performed by Joseph Ang MD at [facility] OR ??? PRO MICROSURG TECHNIQUES, REQ OPER MICROSCOPE N/A 05/10/2020 MICROSCOPE USE (WRVU 3.46) performed by Joseph Ang MD at [facility] OR ??? PRO REIMPLANT URETER, SINGLE URETER Left 05/20/2016 @URETERONEOCYSTOSTOMY ANASTOMOSIS OF SINGLE URETER TO BLADDER performed by Santosh Arredondo MD at [facility] OR ??? PRO REIMPLANT URETER, SINGLE URETER N/A 05/20/2016 @URETERONEOCYSTOSTOMY ANASTOMOSIS OF SINGLE URETER TO BLADDER performed by Que Amaro MD at [facility] OR ??? PRO TOTAL KNEE ARTHROPLASTY Right 11/25/2017 TOTAL KNEE ARTHROPLASTY (WRVU 20.72) performed by Breezy Dale MD at [facility] OR ??? PRO TRANSPLANT, PREP CADAVER RENAL GRAFT N/A 09/16/2015 @PREPARATION CADAVERIC RENAL ALLOGRAFT performed by Franko Larkin MD at [facility] OR ??? PRO TRANSPLANTATION OF KIDNEY N/A 09/16/2015 @KIDNEY TRANSPLANT, WITHOUT RECIPIENT NEPHRECTOMY performed by Franko Larkin MD at [facility] OR ??? TISSUE TRANSFER kidney ??? US RENAL TRANSPLANT LEFT Left 01/31/2019 US Renal Transplant Left 01/31/2019 [facility] RAD ULTRASOUND ??? US RENAL TRANSPLANT LEFT Left 02/07/2019 US Renal Transplant Left 02/07/2019 [facility] RAD ULTRASOUND Social History Tobacco Use [...] ??? Types: Marijuana Allergies Allergen Reactions ??? [place] Medications: MAR and/or home medications have been [...] moderate mitral regurgitation. Activity status: ADR: -- [place] Recent Labs: Lab Results Component Value Date [...] risks discussed with patient. Plan discussed with CHILD DEVELOPMENT ASSOCIATE TEACHER. Anesthesia Screening documented in this encounter Plan of Treatment Upcoming Encounters Date Type Department Care Team (Late st Contact Info) Description 06/22/2024 11:00 AM EST Visit (TeleHealth) Cardiology at [address] [phone] Byron Brown MD [facility] [place] [address] 07/14/2024 10:00 AM EST Hospital Encounter Non-Invasive [place] [phone] Arrived documented as of this encounter Goals Goal Patient Goal Type Associated Problems Recent Progress Patient-Stated? Author [facility] Inez Medication Compliance and Understanding Patient Facing Action [...] mg documented in this encounter Care Teams Gas Mask Assembler Relationship Specialty Start Date End Date Urbano Jimenez DO [address] [place] [address] PCP - General Family Medicine 03/18/22 Ruchi Valles RN Nurse Clinic Transplant Surgery 07/30/15 documented as of this encounter
--- OUTSIDE RECORDS SUMMARY | 2024-05-16 17:18 | XMS_ITS | Encounter Summary ---
[place] [address] Care Team Providers Care Recreation Programmer Name Role Phone Urbano Jimenez DO Primary Care Provider [phone] Reason for Referral * Diagnostic Test (Routine) - Closed Specialty Diagnoses / Procedures Referred By Humberto flor Referred To Contact Cardiology Diagnoses Persistent atrial fibrillation Procedures Transesophageal Echocardiogram (DAVEY) Madhu Diana MD [facility] [place] [address] [facility] [place] [address] Referral ID Status Reason Start Date Expiration Date V isits Requested Visits Authorized [id number] Closed Specialty Service Requested 04/17/2022 07/15/2022 1 [...] ECHO DURING CATH/EP PROCEDURE Madhu Diana MD [facility] [place] [address] [place] Referral ID Status Reason Start Date Expiration Date Visits Re quested Visits Authorized [id number] 1 1 Encounter Details Date Type Department Care Team (Latest Contact Info) Description 05/08/2022 8:29 AM EDT - 05/09/2022 12:00 PM EDT Hospital Encounter Intermediate Cardiac Care Unit [place] [address] Madhu Diana MD [facility] [place] [address] Persistent atrial fibrillation Discharge Disposition: Home Social [...] Ethel Akins Patient Age: 71 y.o. Language: Luxembourger Race: White Ethnicity: Not nor Admit date: 05/08/2022 Discharge date and time: 05/09/2022 1000 Attending Physician: Madhu Diana MD Discharge Physician: Harjeet Daina MD Follow-up Recommendations for Providers: - continue [...] Diana MD - attending LIN Haddad PA-C [facility] Pager [phone] Discharge Diagnoses (Hospital Problems) and Secondary Diagnoses (Chronic Problems): Active Hospital Problems Diagnosis ??? Atrial fibrillation Resolved Hospital Problems No resolved problems to display. Active Non-Hospital Problems Diagnosis ??? Aortic stenosis, mild ??? Mitral regurgitation Moderate ??? Pacemaker 01/31/2022 Successful implantation of a dual chamber Medtronic pacemaker Medtronic [place] XT DR MRI Model ??? Tachy-sakina syndrome [...] D deficiency ??? 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 [...] AF Hx of Cardioversion:?No Anti-Arrhythmics:?No Sleep Apnea:?No [id number] ( HTN 1, Age??1,?? DM 1, Stroke [...] 27mm implant ACCESS: Right femoral vein, 14 Fijian, ultrasound guided access, perclose for hemostasis ?? [...] 0 STOPPED Medications aspirin EC 81 mg [facility] Updated Allergies/ADRs: Allergies Allergen Reactions ??? [place] Immunizations Given this Hospitalization: None Discharge Medications: [...] appointments: During 8am-5pm Thursday through Thursday call [phone] and ask to speak to the cardiology clinic triage nurse. All other times call [phone] and ask to speak to the transportation planning technician educational sign language interpreter. Return to work: One week Driving: No [...] questions or concerns. Harjeet Aburto Interventional Cardiology [facility] Pager [phone] (M-F 7am-5pm call [phone] flash oven operator) General Instructions Listed Below (repeat from [...] PCP 2-3 weeks post procedure and general spinner hand in the 1-3 months postprocedure. 4. For the first 6 months of the device, try to avoid unnecessary procedures. For only dental procedures in first 6 months if they must be done: take a prescribed antibiotic before dental procedures (typically amoxicillin 2 g by mouth or clindamycin 600 mg by mouth one time one hour before procedure). Your PCP or our cardiac nurse ([phone]) can prepare a prescription is needed. If there are questions, please contact Dr. Diana at [phone]. If there are emergency questions related to the device, call the transportation planning technician educational sign language interpreter at [phone]. Smoking cessation: If you are currently a [...] your PCP in 1-2 weeks, and your Telegraphic Typewriter Operator in 4-6 weeks. Please contact each office to make or confirm your appointments! Harjeet Aburto Interventional Cardiology [facility] Pager: [phone] MCKINLEY Calzada Interventional Cardiology 05/09/22 8:34 AM [facility] Pager: [phone] documented in this encounter Discharge Instructions * [...] appointments: During 8am-5pm Thursday through Thursday call [phone] and ask to speak to the cardiology clinic triage nurse. All other times call [phone] and ask to speak to the transportation planning technician educational sign language interpreter. Return to work: One week Driving: No driving for 24 hours after catherization Diet: low fat / low cholesterol Follow up Appointments: spinner hand Dr Diana in 45 days for repeat [...] is not improving, please call us at [phone]. Please caution and limit physical activity or exercise for the next 3 days, perform only light duty, do not lift anything heavier than a gallon of milk. Please follow up with your cardiology in 45 days (6 weeks). Follow up with your PCP in 2-4 weeks after procedure. If there are questions, please contact Yessica Johnson PA-C nurse, Karthik Padilla, at [phone] #3 and he will reach out to her as needed. If there are emergency questions at night or over the weekend, call the transportation planning technician educational sign language interpreter at [phone]. * Attachments The following attachments cannot be sent through Care Everywhere. * Left Atrial Appendage Closure: Percutaneous: Post-op (Luxembourger) documented in this encounter Medications at Time [...] the dark (lengthy drive up to [place], [place]). Due to patient and family preference, patient [...] of a dual chamber Medtronic pacemaker Medtronic [place] XT DR MRI Model ??? Tachy-sakina syndrome [...] D deficiency ??? 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 Birthdate: 1950 Admit date: 05/08/2022 Attending Physician: Madhu Diana MD [facility] Interventional Cardiology [...] MCKINLEY Boyle Interventional Cardiology 05/08/22 11:05 AM [facility] Pager: [phone] documented in this encounter Miscellaneous Notes * Plan of Care - Rhoda Velasquez RN - 05/09/2022 11:58 AM EDT Patient AVS reviewed. Questions answered. Patient discharged to [facility]. Problem: Adult Inpatient Plan of Care Goal: [...] today. PLAN MOVING FORWARD: pain management monitor monitor worker I/Os discharge planning as appropriate INDIVIDUALIZED FALL [...] Operative Note Patient Name: Ethel Akins : [id number] MR#: [id number] Case Date: 05/08/2022 Surgeon: Surgeon(s) and Role: Panel 1: * Madhu Diana MD - Primary * Yessica Johnson PA - Physician Bullion Weigher Panel 2: * Damien Ellis MD - [...] EST TH Visit (TeleHealth) Cardiology at [address] [address] Shaq Damon MD [facility] [place] [address] 07/14/2024 10:00 AM EST Hospital Encounter Non-Invasive Cardiology Lab [place] [address] Arrived documented as of this encounter Goals [...] 3:30 PM EDT) Neutrophil % 73.2 % [facility] Neutrophil Absolute 5.92 1.70 - 6.10 x10(3)/[facility] LABORATORY Lymph % 16.1 % [facility] Lymphocytes Abs 1.3 0.9 - 3.2 x10(3)/[facility] LABORATORY Monocyte % 6.6 % [facility] Monocyte Abs 0.5 0.3 - 0.9 x10(3)/[facility] LABORAT[facility] Eos % 3.1 % [facility] Eosinophils Abs 0.2 0.0 - 0.4 x10(3)/[facility]ORATORY Basophil % 0.6 % [facility] Baso Absolute 0.0 0.0 - 0.1 x10(3)/[facility] Immature Gran % 0.40 [...] Gran Absolute 0.03 0.00 - 0.04 x10(3)/mcL [facility] Blood 05/08/2022 3:30 PM EDT 05/08/2022 3:41 PM EDT Narrative Resulting Agency Comment Spec In Lab Madhu Diana MD HEMATOLOGY ORDERABLE S [facility] [place] [address] * (ABNORMAL) Hemogram (05/08/2022 3:30 PM EDT) White Blood Cell 8.1 4.0 - 9.5 x10(3)/mc L [facility] Red Blood Cell 4.31(L) 4.58 - 5.54 x10(6)/mc L [facility] Hemoglobin 13.2(L) 13.7 - 16.5 g/dL [facility] Hematocrit 38.4(L) 40.5 - 48.5 % [facility] Mean Cell Volume 89.1 82.9 - 93.1 fL [facility] Mean Cell Hemoglobin 30.6 27.5 - 32.1 pg [facility] Mean Cell Hemoglobin Concentration 34.4 32.0 - 35.7 g/dL [facility] Platelet 241 145 - 357 x10(3)/mc L [facility] RDW Standard Deviation 42.4 36.0 - 45.0 fL [facility] RDW coefficient of variation 13.0 11.4 - 13.8 % [facility] Mean Platelet Volume 9.4 7.6 - 12.9 fL [facility] NRBC% auto 0.0 % [facility] NRBC Absolute 0.000 0.000 - 0.000 x10(3)/mc L [facility] Blood 05/08/2022 3:30 PM EDT 05/08/2022 3:41 PM EDT Narrative Resulting Agency Comment Spec In Lab Madhu Diana MD HEMATOLOGY ORDERABLE S [facility] [place] [address] * ECHO LMTD W/O CONTRAST W LMTD SPEC DOPP COLOR DOPP (05/08/2022 3:02 PM EDT) Anatomical Region Laterality Modality Cardiac Other 05/08/2022 2:28 PM EDT Narrative 05/08/2022 3:56 PM EDT ? Echocardiogram Report Name: ETHEL AKINS ? Study Date: 05/08/2022 02:28 PM ?BP: 107/63 mmHg ?Patient Location: [address] : 1950 ?Height: 180 cm ? Account: [id number] Age: 71 yrs ?Weight: 101 kg Gender: Male ? BSA: 2.2 m2 Ordering Physician: MADHU DIANA Referring Physician: SHAQ DAMON Performed By: Halima York RDCS Reason For Study: S/P Watchman Interpretation Summary Limited post Watchman protocol. There was a small pericardial effusion pre-procedure which is unchanged immediately post procedure (earlier today by DAVEY) and by TTE now. There is no echocardiographic evidence of tamponade. See report for additional findings. Procedure Limited - 88050. limited spectral 18334. Color Doppler - 44200. Satisfactory quality. Irregular rhythm. Left Ventricle Left ventricular systolic function is mildly reduced. Left ventricular ejection fraction is estimated visually at 45%. Left Atrium Jknh-jy-nvyyy flow is present. There is a single [...] Calero MD - 05/08/2022 Echocardiogram Report Name: SHAKIRAANARAMÓNJOSIASETHEL P Study Date: 05/08/2022 02:28 PM BP: 107/63mmHg Patient Location: [address] : 1950 Height: 180 cm Account:[id number] Age: 71 yrs Weight: 101 kg Gender: Male BSA: 2.2 m2 Ordering Physician: MADHU DIANA Referring Physician: SHAQ DAMON Performed By: Halima York RDCS Reason For Study: S/P Watchman Interpretation Summary Limited post Watchman protocol. There was a small pericardial effusion pre-procedure which is unchanged immediately post procedure (earlier today by DAVEY) and by TTE now. There isno echocardiographic evidence of tamponade. See report for additional findings. Procedure Limited - 77146. limited spectral 43455. Color Doppler - 55879.Satisfactory quality. Irregular rhythm. Left Ventricle Left ventricular systolic function is mildly reduced. Left ventricularejection fraction is estimated visually at 45%. Left Atrium Gzmf-cj-cfcbx flow is present. There is a single [...] (Bezet) 464 ms MUSE SYSTEM Calculated R Mcdonough -57 degrees MUSE SYSTEM Calculated T Mcdonough -60 degrees MUSE SYSTEM INTERPRETATION Atrial fibrillation [...] Modality Other Narrative 05/08/2022 3:37 PM EDT ?[facility] ? Cardiac Catheterization/Intervention Report ? Patient Name: Ethel Akins. ? Procedure Date: 05/08/2022 ? A #: [id number] ? Primary Physician: Lebron, Madhu Petersen ? Case #: [id number] ? File Name: [id number] ? Catheterization Order Number: [id number] ? [facility] ? Final Report [place], [place] ? Patient Name: ? Ethel P. Tubiello ? ID#: ?[id number] ? : ?1950 ? Procedure Date: ? May 08, 2022 ? Case #: ? [id number] ? Room: ? 6 ? Case Physicians: ?Madhu Diana M.D. ?Start: ?12:18 ?Aldo Montes M.D. ?Admission: ??05/08/2022 ?Damien Ellis M.D. ? Referring Physician: ??Shaq Damon M.D. ? Procedures: ?* Left Heart Catheterization [...] procedure was Elective. The indication for ?the chemical laboratory chief visit is other indication. Chest pain symptom [...] for atrial fibrillation. ?The patient had a [id number] score of 6, a HAS-BLED score of [...] ?Watchman FLX Closure Device 27 mm (s/l/n [id number]) was prepared and ?deployed using standard technique. [...] to nor was it given in the ?chemical laboratory chief. ?Recommended anti-platelet/anti-thrombotic regimen: ?Continue apixaban 2.5 mg twice daily for 45 days then stop. ?These recommendations are made at the time of the intervention. Patient ?and provider preferences or a changing clinical situation may require ?modification of this regimen. Consult [facility] Interventional Cardiology for ?questions. ? Conclusions: [...] during ?cath, vascular closure device, anesthesia and ABTOOL closure. Dr. Aldo Morgan ?Herrera Montes performed [...] Date: 05/08/2022 11:58 AM ? Patient Location: [facility] A : 1950 ? Height: 180 cm ? Account: [id number] Age: 71 yrs ? Weight: 101 kg Gender: Male ?BSA: 2.2 m2 Ordering Physician: GENA CHERRY Referring Physician: MADHU DIANA Performed By: Damien Ellis MD Reason For Study: Atrial Fibrillation Exam Location: [facility]. Interpretation Summary DAVEY performed to guide BATOOL closure in catheterization laboratory. Baseline: No BATOOL thrombus. Max os diameter of ~22 mm. Small pericardial effusion. Post: 27 mm Watchman FLX device well-seated within BATOOL. No mary-device leak. No change in pericardial effusion. Mmou-lf-fryws flow across atrial septostomy. See report for [...] AKINS Study Date: 1:58 AM Patient Location: [address] : 1950 Height: 180 cm Account: [id number] Age: 71 yrs Weight: 101 kg Gender: Male BSA: 2.2 m2 Ordering Physician: GENA CHERRY Referring Physician: MADHU DIANA Performed By: Damien Ellis MD Reason For Study: Atrial Fibrillation Exam Location: [facility]. Interpretation Summary DAVEY performed to guide BATOOL closure in catheterization laboratory. Baseline: No BATOOL thrombus. Max os diameter of ~22 mm. Small pericardialeffusion. Post: 27 mm Watchman FLX device well-seated within BATOOL. No mary-deviceleak. No change in pericardial effusion. Svsw-lz-mmcfh flow across atrialseptostomy. See report for additional [...] Glucose, POC 142 65 - 199 mg/dL [facility] Comment: Supplemental ranges: <140 mg/dL before meals <180 mg/dL all other times of the day Blood 05/08/2022 12:3 2 PM EDT 05/08/2022 12:32 PM EDT Madhu Diana MD POINT OF CARE TEST Mario JEAN [facility] [place] [address] * POCT Glucose (05/08/2022 9:39 AM EDT) Glucose, POC 134 65 - 199 mg/dL [facility] Comment: Supplemental ranges: <140 mg/dL before meals <180 mg/dL all other times of the day Blood 05/08/2022 9:39 AM EDT 05/08/2022 9:39 AM EDT Madhu Diana MD POINT OF CARE TEST Mario JEAN [facility] [place] [address] * Type and Screen Validity (05/08/2022 8:54 AM EDT) T&S only valid at [facility] LABORATORY Comment:This Type and Screen result is only valid at the [facility] Hospital Blood 05/08/2022 8:54 AM EDT 05/08/2022 8:55 AM EDT Narrative Resulting Agency Comment Spec In Lab Harjeet SEN BLOOD BANK LAB ORDER IGNACIO [facility] [place] [address] * ABORH Recheck Status (05/08/2022 8:54 AM EDT) ABORH Type Recheck Completed [facility] Blood 05/08/2022 8:54 AM EDT 05/08/2022 8:55 AM EDT Narrative Resulting Agency Comment Spec In Lab Harjeet SEN BLOOD BANK LAB ORDER IGNACIO Performing Organization Address City/[facility]/ZIP Co de Phone Number [facility] [place] [address] * Antibody screen (05/08/2022 8:54 AM EDT) Ab Screen Interp Negative [facility] Expires at 2359 on: 05/11/2022 [facility] Blood 05/08/2022 8:54 AM EDT 05/08/2022 8:55 AM EDT Narrative Resulting Agency Comment Spec In Lab Harjeet SEN BLOOD BANK LAB ORDER IGNACIO Performing Organization Address City/[facility]/ZIP Co de Phone Number [facility] [place] [address] * ABO/Rh Typing (05/08/2022 8:54 AM EDT) ABORH Type AB Pos [facility] Blood 05/08/2022 8:54 AM EDT 05/08/2022 8:55 AM EDT Narrative Resulting Agency Comment Spec In Lab Harjeet SEN BLOOD BANK LAB ORDER [place] [address] * Differential, Automated (05/08/2022 8:54 AM EDT) Pathologist [facility] Neutrophil % 69.6 % [facility] Neutrophil Absolute 5.76 1.70 - 6.10 x10(3)/[facility] LABORATORY Lymph % 18.1 % [facility] Lymphocytes Abs 1.5 0.9 - 3.2 x10(3)/[facility] LABORATORY Monocyte % 7.1 % [facility] [place] Monocyte Abs 0.6 0.3 - 0.9 x10(3)/[facility] LABORATORY Eos % 3.7 % [facility] Eosinophils Abs 0.3 0.0 - 0.4 x10(3)/[facility] Basophil % 1.1 % [facility] [place] Baso Absolute 0.1 0.0 - 0.1 x10(3)/[facility] Immature Gran % 0.40 % [facility] Comment: Immature granulocytes(IG's)percentage and absolute count will include metamyelocytes, myelocytes, and promyelocytes. Blood smears from CBCs yielding IG's will be scanned manually for concordance. If this scan disagrees with the automated IG or if promyelocytes are noted, a manual differential will be performed. Immature Gran Absolute 0.03 0.00 - 0.04 x10(3)/[facility] LABORATORY Blood 05/08/2022 8:54 AM EDT 05/08/2022 9:05 AM EDT Narrative Resulting Agency Comment Spec In Lab Madhu Diana MD [place] [address] * Hemogram (05/08/2022 8:54 AM EDT) Pathologist [facility] White Blood Cell 8.3 4.0 - 9.5 x10(3)/[facility] LABORATORY Red Blood Cell 4.83 4.58 - 5.54 x10(6)/[facility] LABORATORY Hemoglobin 14.5 13.7 - 16.5 g/dL [facility] Hematocrit 42.1 40.5 - 48.5 % [facility] Mean Cell Volume 87.2 82.9 - 93.1 [facility] LABORATORY Mean Cell Hemoglobin 30.0 27.5 - 32.1 pg [facility] Mean Cell Hemoglobin Concentration 34.4 32.0 - 35.7 g/dL [facility] Platelet 273 145 - 357 x10(3)/[facility] LABORATORY RDW Standard Deviation 40.7 36.0 - 45.0 [facility]ORATORY RDW coefficient of variation 12.9 11.4 - 13.8 % [facility] Mean Platelet Volume 9.1 7.6 - 12.9 [facility] LAB[facility]ATORY NRBC% auto 0.0 % [facility] NRBC Absolute 0.000 0.000 - 0.000 x10(3)/[facility]ORATORY Blood 05/08/2022 8:54 AM EDT 05/08/2022 9:05 AM EDT Narrative Resulting Agency Comment Spec In Lab Madhu Diana MD HEMATOLOGY ORDERABLE S [facility] [place] [address] * (ABNORMAL) BMP w/fasting Glucose (05/08/2022 8:54 AM EDT) Glucose Fasting 168(H) 65 - 99 mg/dL [facility] [...] of Diabetes Mellitus, Position Statement from the [place] [employer]. ??Diabetes Care, Volume 33, Supplement 1, Jul 2009 Blood Urea Nitrogen 18 10 - 20 mg/dL [facility] Creatinine 1.44 0.80 - 1.50 mg/dL [facility] Carbon Dioxide 30 22 - 31 mmol/L [facility] Anion Gap 9 5 - 15 mmol/L [facility] Calcium 9.8 8.5 - 10.5 mg/dL [facility] Est Glomerular Filtration Rate 51(L) >=60 mL/min/1. 73 m?? [facility] Comment: This patient's estimated [...] In Lab Madhu Diana MD [place] [address] documented in this encounter Visit Diagnoses Diagnosis [...] 05/08/22 at 1743, Recovery (Recovery-Hospital Unit) New Bag 05/08/2022 1:30 PM EDT 100 mL/hr 100 [...] fibrillation 827 (Given - Provid er: Rhoda Velasquez, JADEN) aspirin EC tablet 81 mg 81 [...] Oral, DAILY, First dose on Thu05/08/22 at 5, Until Discontinued, Routine 2037 (Given - Provider: [...] Routine documented in this encounter Care Teams Recreation Programmer Relationship Specialty Start Date End Date Urbano Jimenez DO [address] [place] [address] PCP - General Family Medicine 03/18/22 Ruchi Valles RN Nurse Clinic Transplant Surgery 07/30/15 documented as of this encounter
--- OUTSIDE RECORDS SUMMARY | 2024-05-16 17:18 | XMS_ITS | Encounter Summary ---
[place] [address] Care Team Providers Care Special Services Coordinator Name Role Phone Urbano Jimenez DO Primary Care Provider [phone] Reason for Referral * Diagnostic Test (Routine) - Closed Specialty Diagnoses / Procedures Referred By Contpaula t Referred To Contact Cardiology Diagnoses Persistent atrial fibrillation Procedures Transesophageal Echocardiogram (DAVEY) Tal Diana MD [facility] [place] [address] [facility] [place] [address] Referral ID Status Reason Start Date Expiration Date V isits Requested Visits Authorized [id number] Closed Specialty Service Requested 07/06/2022 10/03/2022 1 1 Encounter Details Date Type Department Care Team (Late st Contact Info) Description 04/08/2022 Orders Only Cardiology at [address] [phone] Tal Diana MD [facility] [place] [address] Persistent atrial fibrillation Social History [...] EST TH Visit (TeleHealth) Cardiology at [address] [phone] Byron Brown MD [facility] [place] [address] 07/14/2024 10:00 AM EST Hospital Encounter Non-[place]vasive [place] [address] Arrived documented as of this [...] 1950 ? Height: 180 cm ? Account: [id number] Age: 71 yrs ? Weight: 100 kg Gender: Male ?BSA: 2.2 m2 Ordering Physician: GENA CHERRY Referring Physician: UNKNOWN Performed By: Cathie Palmer MD Reason For Study: Atrial fibrillation History: Post-Watchman Interpreting Fellow: Cathie Palmer. Exam Location: [facility]. Interpretation Summary Post-Watchman DAVEY follow [...] 58 : 1950 Height: 180 cm Account: [id number] Age: 71 yrs Weight: 100 kg Gender: Male BSA: 2.2 m2 Ordering Physician: GENA CHERRY Referring Physician: UNKNOWN Performed By: Cathie Palmer MD Reason For Study: Atrial fibrillation History: Post-Watchman Interpreting Fellow: Cathie Palmer. Exam Location: [facility]. Interpretation Summary Post-Watchman DAVEY follow [...] fibrillation documented in this encounter Care Teams Special Services Coordinator Relationship Specialty Start Date End Date Urbano Jimenez DO [facility] [place] [address] PCP - General Family Medicine 03/18/22 Hai STANLEY,Ruchi Nurse Clinic Transplant Surgery 07/30/15 documented as of this encounter
--- OUTSIDE RECORDS SUMMARY | 2024-05-16 17:18 | XMS_ITS | Encounter Summary ---
Author Organization Formerly [facility] [place] [address] Care Team Providers Care Business Operations Coordinator Name Role Phone PerrydebUrbano DO Primary Care Provider [phone] Encounter Details Date Type Department Care Team (Late st Contact Info) Description 04/08/2022 Notes Only Cardiology at [address] [phone] Nazia Coleman RN Social History Tobacco Use [...] EST TH Visit (TeleHealth) Cardiology at [address] [phone] Byron Brown MD [facility] [place] [address] 07/14/2024 10:00 AM [facility] Hospital Encounter [place] [address] Arrived documented as of this [...] filedocumented in this encounter Care Teams Business Operations Coordinator Relationship Specialty Start Date End Date Urbano Jimenez DO [address] [place] [address] PCP - General Family Medicine 03/18/22 Ruchi Valles RN Nurse Clinic Transplant Surgery 07/30/15 documented as of this encounter
--- OUTSIDE RECORDS SUMMARY | 2024-05-16 17:18 | XMS_ITS | Encounter Summary ---
[place] [address] Care Team Providers Care Health Care Technician Name Role Phone Urbano Denis DO Primary Care Provider Encounter Details Date Type Department Care Team (Late st Contact Info) Description 02/18/2022 Telephone Cardiology at [address] [phone] Marisela Bob RN Social History Tobacco Use [...] fatigued. Recent visit to his local ER ([facility]) with increased pericardial effusion after pacemaker. Patient statesthat he feels like something is not right and he is very weak/dizzy. The patient plans to be evaluated first at [facility] again with possible transfer to [facility] if needed. Would plan to repeat limited echo to assess for pericardial effusion after recent pacer and possible device interrogation. 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 He is being worked up at [facility] for an BATOOL occluder ([place]) in Mar 2022. Plan: -going to his local ER for initial evaluation -rule out pericardial tamponade -interrogate pacer for arrhythmia -standard labs/vitals -evaluate for need to transfer down to [facility] * Telephone Encounter - Marisela Bob RN - 02/18/2022 12:50 PM EDT RTC to Mrs Bolden regarding her phone call stating her , Mr Bolden was just seen in the ER at [facility], complaint of fatique and was found to [...] AM EST TH Visit (TeleHealth) Cardiology at [address] [phone] Byron Brown MD [facility] [place] [address] 07/14/2024 10:00 AM EST Hospital Encounter Non-[place]vasive [place] [phone] Arrived documented as of this encounter Goals [...] filedocumented in this encounter Care Teams Health Care Technician Relationship Specialty Start Date End Date Urbano Denis DO [address] [facility] [address] [place] [address] PCP - General 09/03/12 03/17/22 Ruchi Valles RN Nurse Clinic Transplant Surgery 07/30/15 documented as of this encounter
--- OUTSIDE RECORDS SUMMARY | 2024-05-16 17:18 | XMS_ITS | Encounter Summary ---
Author Organization [facility] [place] [address] Care Team Providers Care Gaming Worker Name Role Phone Urbano Jimenez DO Primary Care Provider [phone] Reason for Visit * Auth/Cert Specialty Diagnoses / Procedures Referred By Humberto t Referred To Contact Diagnoses Persistent atrial fibrillation [I48.19] Watchman Procedures PRO PERQ CLSR TCAT L ATR APNDGE W/ENDOCARDIAL IMPLNT CARDIAC CATHETERIZATION @PERQ TRANSCATH CLOSURE LEFT ATRIAL APPENDAGE W ENDOCARDIAL IMPLANT, INC RAD S&I (WRVU 14) TRANSESOPHAGEAL ECHO DURING CATH/EP PROCEDURE Madhu Diana MD [facility] [place] [address] [facility] Referral ID Status Reason Start Date Expiration Date Visits Re quested Visits Authorized [id number] 1 1 Encounter Details Date Type Department Care Team (Late st Contact Info) Description 05/08/2022 9:30 AM EDT - 05/08/2022 11:58 AM EDT Surgery [place] [address] Madhu Diana MD [facility] [place] [address] CARDIAC CATHETERIZATION Social History Tobacco Use Types [...] Ethel Akins Patient Age: 71 y.o. Language: Honduran Race: White Ethnicity: Not nor Admit date: [...] Diana MD - attending LIN Haddad PA-C [facility] Pager [phone] Discharge Diagnoses (Hospital Problems) and Secondary Diagnoses [...] AF Hx of Cardioversion:?No Anti-Arrhythmics:?No Sleep Apnea:?No [id number] ( HTN 1, Age??1,?? DM 1, Stroke [...] 27mm implant ACCESS: Right femoral vein, 14 Uzbek, ultrasound guided access, perclose for hemostasis ?? [...] Tbec Updated Allergies/ADRs: Allergies Allergen Reactions ??? [place] Immunizations Given this Hospitalization: None Discharge Medications: [...] appointments: During 8am-5pm Thursday through Thursday call [phone] and ask to speak to the cardiology clinic triage nurse. All other times call [phone] and ask to speak to the floor hand flight control manager. Return to work: One week Driving: No [...] questions or concerns. Harjeet Aburto Interventional Cardiology [facility] [place] [facility] Pager [phone] (M-F 7am-5pm call [phone] high energy forming equipment operator) General Instructions Listed Below (repeat from [...] PCP 2-3 weeks post procedure and general family court registrar in the 1-3 months postprocedure. 4. For the first 6 months of the device, try to avoid unnecessary procedures. For only dental procedures in first 6 months if they must be done: take a prescribed antibiotic before dental procedures (typically amoxicillin 2 g by mouth or clindamycin 600 mg by mouth one time one hour before procedure). Your PCP or our cardiac nurse ([phone]) can prepare a prescription is needed. If there are questions, please contact Dr. Diana at [phone]. If there are emergency questions related to the device, call the floor hand flight control manager at [phone]. Smoking cessation: If you are currently a [...] your PCP in 1-2 weeks, and your Bulk Intake Worker in 4-6 weeks. Please contact each office to make or confirm your appointments! Harjeet Aburto Interventional Cardiology [facility] Pager: [phone] MCKINLEY Calzada Interventional Cardiology 05/09/22 8:34 AM [facility] Pager: [phone] documented in this encounter Discharge Instructions * [...] appointments: During 8am-5pm Thursday through Thursday call [phone] and ask to speak to the cardiology clinic triage nurse. All other times call [phone] and ask to speak to the floor hand flight control manager. Return to work: One week Driving: No driving for 24 hours after catherization Diet: low fat / low cholesterol Follow up Appointments: family court registrar Dr Diana in 45 days for repeat [...] is not improving, please call us at [phone]. Please caution and limit physical activity or exercise for the next 3 days, perform only light duty, do not lift anything heavier than a gallon of milk. Please follow up with your cardiology in 45 days (6 weeks). Follow up with your PCP in 2-4 weeks after procedure. If there are questions, please contact Yessica Johnson PA-C nurse, Karthik Padilla, at [phone] #[phone] and he will reach out to her as needed. If there are emergency questions at night or over the weekend, call the floor hand flight control manager at [phone]. * Attachments The following attachments cannot be sent through Care Everywhere. * Left Atrial Appendage Closure: Percutaneous: Post-op (Honduran) documented in this encounter Medications at Time [...] in the dark (lengthy drive up to [place], [place]). 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 Birthdate: 1950 Admit date: 05/08/2022 Attending Physician: Madhu Diana MD [facility] Interventional Cardiology Structural [...] MCKINLEY Boyle Interventional Cardiology 05/08/22 11:05 AM [facility] Pager: [phone] documented in this encounter Miscellaneous Notes * Plan of Care - hRoda Velasquez RN - 05/09/2022 11:58 AM EDT Patient AVS reviewed. Questions answered. Patient discharged to [facility]. Problem: Adult Inpatient Plan of Care Goal: Plan of Care Review 05/09/2022 1158 by Rhoda Velaqsuez RN Outcome: Outcome (s) achieved 05/09/2022 0646 [...] today. PLAN MOVING FORWARD: pain management monitor secured entrance monitor I/Os discharge planning as appropriate INDIVIDUALIZED [...] Operative Note Patient Name: Ethel Akins : [id number] MR#: [id number] Case Date: 05/08/2022 Surgeon: Surgeon(s) and Role: Panel 1: * Madhu Diana MD - Primary * Yessica Johnson PA - Physician Elevator Dispatcher Panel 2: * Damien Ellis MD - [...] EST TH Visit (TeleHealth) Cardiology at [address] [address] Shaq Damon MD [facility] [place] [address] 07/14/2024 10:00 AM EST Hospital Encounter Non-[place] [address] Arrived documented as of this encounter Goals [...] 3:30 PM EDT) Neutrophil % 73.2 % [facility] Neutrophil Absolute 5.92 1.70 - 6.10 x10(3)/[facility] LABORATORY Lymph % 16.1 % [facility] Lymphocytes Abs 1.3 0.9 - 3.2 x10(3)/[facility] Monocyte % 6.6 % [facility] Monocyte Abs 0.5 0.3 - 0.9 x10(3)/[facility] LABOR[facility] Eos % 3.1 % [facility] Eosinophils Abs 0.2 0.0 - 0.4 x10(3)/[facility]OR[facility]ORY Basophil % 0.6 % [facility] Baso Absolute 0.0 0.0 - 0.1 x10(3)/[facility] LABORATORY Immature Gran % 0.40 % [facility] Comment: Immature granulocytes(IG's)percentage and absolute count will include metamyelocytes, myelocytes, and promyelocytes. Blood smears from CBCs yielding IG's will be scanned manually for concordance. If this scan disagrees with the automated IG or if promyelocytes are noted, a manual differential will be performed. Immature Gran Absolute 0.03 0.00 - 0.04 x10(3)/[facility]ATORY Blood 05/08/2022 3:30 PM EDT 05/08/2022 3:41 PM EDT Narrative Resulting Agency Comment Spec In Lab Madhu Diana MD HEMATOLOGY ORDERABLE S [facility] [place] [address] * (ABNORMAL) Hemogram (05/08/2022 3:30 PM EDT) White Blood Cell 8.1 4.0 - 9.5 x10(3)/[facility] LABORATORY Red Blood Cell 4.31(L) 4.58 - 5.54 x10(6)/[facility] LABORATORY Hemoglobin 13.2(L) 13.7 - 16.5 g/dL [facility] Hematocrit 38.4(L) 40.5 - 48.5 % [facility] Mean Cell Volume 89.1 82.9 - 93.1 fL [facility] Mean Cell Hemoglobin 30.6 27.5 - 32.1 pg [facility] Mean Cell Hemoglobin Concentration 34.4 32.0 - 35.7 g/dL [facility] Platelet 241 145 - 357 x10(3)/[facility] LABORATORY RDW Standard Deviation 42.4 36.0 - 45.0 [facility] LABORATORY RDW coefficient of variation 13.0 11.4 - 13.8 % [facility] Mean Platelet Volume 9.4 7.6 - 12.9 fL [facility] NRBC% auto 0.0 % [facility] NRBC Absolute 0.000 0.000 - 0.000 x10(3)/[facility] LABOR[facility] Blood 05/08/2022 3:30 PM EDT 05/08/2022 3:41 PM EDT Narrative Resulting Agency Comment Spec In Lab Madhu Diana MD HEMATOLOGY ORDERABLE S [facility] [place] [address] * ECHO LMTD W/O CONTRAST W LMTD SPEC DOPP COLOR DOPP (05/08/2022 3:02 PM EDT) Anatomical Region Laterality Modality Cardiac Other 05/08/2022 2:28 PM EDT Narrative 05/08/2022 3:56 PM EDT ? Echocardiogram Report Name: ETHEL AKINS ? Study Date: 05/08/2022 02:28 PM ?BP: 107/63 mmHg ?Patient Location: [address] : 1950 ?Height: 180 cm ? Account: [id number] Age: 71 yrs ?Weight: 101 kg Gender: Male ? BSA: 2.2 m2 Ordering Physician: MADHU DIANA Referring Physician: SHAQ DAMON Performed By: Haliam York RDCS Reason For Study: S/P Watchman Interpretation Summary Limited post Watchman protocol. There was a small pericardial effusion pre-procedure which is unchanged immediately post procedure (earlier today by DAVEY) and by TTE now. There is no echocardiographic evidence of tamponade. See report for additional findings. Procedure Limited - 33653. limited spectral 23301. Color Doppler - 55732. Satisfactory quality. Irregular rhythm. Left Ventricle Left ventricular systolic function is mildly reduced. Left ventricular ejection fraction is estimated visually at 45%. Left Atrium Dqyl-qp-oervu flow is present. There is a single [...] MD - 05/08/2022 Echocardiogram Report Name: ETHEL AKNIS Study Date: 05/08/2022 02:28 PM BP: 107/63mmHg Patient Location: [address] : 1950 Height: 180 cm Account:[id number] Age: 71 yrs Weight: 101 kg Gender: [...] report for additional findings. Procedure Limited - 14486. limited spectral 79466. Color Doppler - 31383.Satisfactory quality. Irregular rhythm. Left Ventricle Left ventricular systolic function is mildly reduced. Left ventricularejection fraction is estimated visually at 45%. Left Atrium Zllr-ux-kakkt flow is present. There is a single [...] (Bezet) 464 ms MUSE SYSTEM Calculated R [place] -57 degrees MUSE SYSTEM Calculated T [place] -60 degrees MUSE SYSTEM INTERPRETATION Atrial fibrillation [...] Modality Other Narrative 05/08/2022 3:37 PM EDT ?[facility] ? Cardiac Catheterization/Intervention Report ? Patient Name: Helderneri, Ethel P. ? Procedure Date: 05/08/2022 ? A #: [id number] ? Primary Physician: Madhu Diana ? Case #: [id number] ? File Name: [id number] ? Catheterization Order Number: [id number] ? [facility] ? Final Report [place], [place] ? Patient Name: ? Ethel Aquinoiello ? ID#: ?[id number] ? : ?1950 ? Procedure Date: ? May 08, 2022 ? Case #: ? [id number] ? Room: ? 6 ? Case Physicians: [...] was designated as ASA Class ?III. The [facility] clinical frailty scale is 6: Moderately [...] procedure was Elective. The indication for ?the geophysical laboratory supervisor visit is other indication. Chest pain symptom [...] for atrial fibrillation. ?The patient had a [id number] score of 6, a HAS-BLED score of [...] ?Watchman FLX Closure Device 27 mm (s/l/n [id number]) was prepared and ?deployed using standard technique. [...] to nor was it given in the ?geophysical laboratory supervisor. ?Recommended anti-platelet/anti-thrombotic regimen: ?Continue apixaban 2.5 mg twice daily for 45 days then stop. ?These recommendations are made at the time of the intervention. Patient ?and provider preferences or a changing clinical situation may require ?modification of this regimen. Consult [facility] Interventional Cardiology for ?questions. ? Conclusions: ?* [...] Report Name: ETHEL AKINS Patricia ?Study Date: 05/08/2022 11:58 AM ? Patient Location: [place] A : 1950 ? Height: 180 cm ? Account: [id number] Age: 71 yrs ? Weight: 101 kg Gender: Male ?BSA: 2.2 m2 Ordering Physician: GENA CHERRY Referring Physician: MADHU DIANA Performed By: Damien Ellis MD Reason For Study: Atrial Fibrillation Exam Location: [facility]. Interpretation Summary DAVEY performed to guide BATOOL closure in catheterization laboratory. Baseline: No BATOOL thrombus. Max os diameter of ~22 mm. Small pericardial effusion. Post: 27 mm Watchman FLX device well-seated within BATOOL. No mary-device leak. No change in pericardial effusion. Bxsm-dn-bfktu flow across atrial septostomy. See report for [...] AKINS Study Date: 1:58 AM Patient Location: [address] : 1950 Height: 180 cm Account: [id number] Age: 71 yrs Weight: 101 kg Gender: Male BSA: 2.2 m2 Ordering Physician: GENA CHERRY Referring Physician: MADHU DIANA Performed By: Damien Ellis MD Reason For Study: Atrial Fibrillation Exam Location: [facility]. Interpretation Summary DAVEY performed to guide BATOOL closure in catheterization laboratory. Baseline: No BATOOL thrombus. Max os diameter of ~22 mm. Small pericardialeffusion. Post: 27 mm Watchman FLX device well-seated within BATOOL. No mary-deviceleak. No change in pericardial effusion. Jgnm-un-dyjti flow across atrialseptostomy. See report for additional [...] Glucose, POC 142 65 - 199 mg/dL [facility] Comment: Supplemental ranges: <140 mg/dL before meals <180 mg/dL all other times of the day Blood 05/08/2022 12:3 2 PM EDT 05/08/2022 12:32 PM EDT Madhu Diana MD POINT OF CARE TEST O RDMILAGROS Performing Organization Address [facility] Co de Phone Number [facility] [place] [address] * POCT Glucose (05/08/2022 9:39 AM EDT) Glucose, POC 134 65 - 199 mg/dL [facility] Comment: Supplemental ranges: <140 mg/dL before meals <180 mg/dL all other times of the day Blood 05/08/2022 9:39 AM EDT 05/08/2022 9:39 AM EDT Madhu Diana MD POINT OF CARE TEST O TED Performing Organization Address [facility] de Phone Number [facility] [place] [address] * Type and Screen Validity (05/08/2022 8:54 AM EDT) T&S only valid at [facility] LABORATORY Comment:This Type and Screen result is only valid at the [facility] Blood 05/08/2022 8:54 AM EDT 05/08/2022 8:55 AM EDT Narrative Resulting Agency Comment Spec In Lab Harjeet SEN BLOOD BANK LAB ORDER IGNACIO Performing Organization Address [facility] Co de Phone Number [facility] [place] [address] * ABORH Recheck Status (05/08/2022 8:54 AM EDT) ABORH Type Recheck Completed [facility] Blood 05/08/2022 8:54 AM EDT 05/08/2022 8:55 AM EDT Narrative Resulting Agency Comment Spec In Lab Harjeet SEN BLOOD BANK LAB ORDER IGNACIO Performing Organization Address City/[facility]/ZIP Co de Phone Number [facility] [place] [address] * Antibody screen (05/08/2022 8:54 AM EDT) Ab Screen Interp Negative [facility] Expires at 2359 on: 05/11/2022 [facility] Blood 05/08/2022 8:54 AM EDT 05/08/2022 8:55 AM EDT Narrative Resulting Agency Comment Spec In Lab Harjeet SEN BLOOD BANK LAB ORDER IGNACIO [facility] [place] [address] * ABO/Rh Typing (05/08/2022 8:54 AM EDT) ABORH Type AB Pos [facility] Blood 05/08/2022 8:54 AM EDT 05/08/2022 8:55 AM EDT Narrative Resulting Agency Comment Spec In Lab Harjeet SEN BLOOD BANK LAB ORDER IGNACIO [facility] [place] [address] * Differential, Automated (05/08/2022 8:54 AM EDT) Pathologist [facility] Neutrophil % 69.6 % [facility] Neutrophil Absolute 5.76 1.70 - 6.10 x10(3)/[facility] LABORATORY Lymph % 18.1 % [facility] Lymphocytes Abs 1.5 0.9 - 3.2 x10(3)/[facility]OR[facility]ORY Monocyte % 7.1 % [facility] Monocyte Abs 0.6 0.3 - 0.9 x10(3)/[facility] LABOR[facility]ORY Eos % 3.7 % [facility] Eosinophils Abs 0.3 0.0 - 0.4 x10(3)/[facility]OR[facility] Basophil % 1.1 % [facility] Baso Absolute 0.1 0.0 - 0.1 x10(3)/[facility]ORATORY Immature Gran % 0.40 % [facility] Comment: Immature granulocytes(IG's)percentage and absolute count will include metamyelocytes, myelocytes, and promyelocytes. Blood smears from CBCs yielding IG's will be scanned manually for concordance. If this scan disagrees with the automated IG or if promyelocytes are noted, a manual differential will be performed. Immature Gran Absolute 0.03 0.00 - 0.04 x10(3)/[facility] Blood 05/08/2022 8:54 AM EDT 05/08/2022 9:05 AM EDT Narrative Resulting Agency Comment Spec In Lab Madhu Diana MD HEMATOLOGY ORDERABLE S Performing Organization Address City/State/[facility] Co de Phone Number [facility] [place] [address] * Hemogram (05/08/2022 8:54 AM EDT) White Blood Cell 8.3 4.0 - 9.5 x10(3)/[facility] LABOR[facility] Red Blood Cell 4.83 4.58 - 5.54 x10(6)/[facility] Hemoglobin 14.5 13.7 - 16.5 g/dL [facility] Hematocrit 42.1 40.5 - 48.5 % [facility] Mean Cell Volume 87.2 82.9 - 93.1 fL [facility] Mean Cell Hemoglobin 30.0 27.5 - 32.1 pg [facility] Mean Cell Hemoglobin Concentration 34.4 32.0 - 35.7 g/dL [facility] Platelet 273 145 - 357 x10(3)/[facility]ORATORY RDW Standard Deviation 40.7 36.0 - 45.0 [facility]ORY RDW coefficient of variation 12.9 11.4 - 13.8 % [facility] Mean Platelet Volume 9.1 7.6 - 12.9 fL [facility] NRBC% auto 0.0 % [facility] NRBC Absolute 0.000 0.000 - 0.000 x10(3)/mcL [facility] Blood 05/08/2022 8:54 AM EDT 05/08/2022 9:05 AM EDT Narrative Resulting Agency Comment Spec In Lab Madhu Diana MD HEMATOLOGY ORDERABLE S [facility] [place] [address] * (ABNORMAL) BMP w/fasting Glucose (05/08/2022 8:54 AM EDT) Glucose Fasting 168(H) 65 - 99 mg/dL [facility] Comment: ?Fasting* Glucose Interpretive [...] of Diabetes Mellitus, Position Statement from the [place] [employer]. ??Diabetes Care, Volume 33, Supplement 1, Jul 2009 Blood Urea Nitrogen 18 10 - 20 mg/dL [facility] Creatinine 1.44 0.80 - 1.50 mg/dL [facility] Sodium 142 135 - 145 mmol/L [facility] Potassium 3.6 3.5 - 5.0 mmol/L [facility] Comment: Please note: ??Patients with WBC >100,000 may have falsely elevated Potassium levels. ??For accurate Potassium quantification in these patients send serum separator tube (gold top) for subsequent determinations. ??Contact the Clinical Chemistry Laboratory if there are any questions. Chloride 103 98 - 107 mmol/L [facility] Carbon Dioxide 30 22 - 31 mmol/L [facility] Anion Gap 9 5 - 15 mmol/L [facility] Calcium 9.8 8.5 - 10.5 mg/dL [facility] Est Glomerular Filtration Rate 51(L) >=60 mL/min/1. 73 m?? [facility] Comment: This patient's estimated [...] In Lab Madhu Diana MD CHEMISTRY ORDERABLES [facility] [place] [address] documented in this encounter Visit Diagnoses Diagnosis [...] Routine documented in this encounter Care Teams Gaming Worker Relationship Specialty Start Date End Date Urbano Jimenez DO [address] [place] [address] PCP - General Family Medicine 03/18/22 Ruchi Valles RN Nurse Clinic Transplant Surgery 07/30/15 documented as of this encounter
--- OUTSIDE RECORDS SUMMARY | 2024-05-16 17:18 | XMS_ITS | Encounter Summary ---
[place] [address] Care Team Providers Care Digital Production Operator Name Role Phone Urbano Jimenez DO Primary Care Provider [phone] Reason for Referral * Diagnostic Test (Routine) - Closed Specialty Diagnoses / Procedures Referred By Contpaula t Referred To Contact Cardiology Diagnoses Persistent atrial fibrillation Procedures Transesophageal Echocardiogram (DAVEY) Madhu Diana MD [facility] [address] [facility] [place] [address] Referral ID Status Reason Start Date Expiration Date V isits Requested Visits Authorized [id number] Closed Specialty Service Requested 04/17/2022 07/15/2022 1 1 Encounter Details Date Type Department Care Team (Late st Contact Info) Description 04/08/2022 Orders Only Cardiology at [address] [address] Madhu Diana MD [facility] [address] Persistent atrial fibrillation Social History [...] EST TH Visit (TeleHealth) Cardiology at [address] [address] Byron Brown MD [facility] [place] [address] 07/14/2024 10:00 AM EST Hospital Encounter Non-Invasive [place] [address] Arrived documented as of this [...] Date: 05/08/2022 11:58 AM ? Patient Location: [facility] A : 1950 ? Height: 180 cm ? Account: [id number] Age: 71 yrs ? Weight: 101 kg Gender: Male ?BSA: 2.2 m2 Ordering Physician: GENA CHERRY Referring Physician: MADHU DIANA Performed By: Damien Ellis MD Reason For Study: Atrial Fibrillation Exam Location: [facility]. Interpretation Summary DAVEY performed to guide BATOOL closure in catheterization laboratory. Baseline: No BATOOL thrombus. Max os diameter of ~22 mm. Small pericardial effusion. Post: 27 mm Watchman FLX device well-seated within BATOOL. No mary-device leak. No change in pericardial effusion. Zzxm-lr-cimnp flow across atrial septostomy. See report for [...] 05/08/2022 Transesophageal Echocardiogram Report Name: ETHEL BOLDEN Patricia Study Date: :58 AM Patient Location: [address] : 1950 Height: 180 cm Account: [id number] Age: 71 yrs Weight: 101 kg Gender: Male BSA: 2.2 m2 Ordering Physician: GENA CHERRY Referring Physician: MADHU DIANA Performed By: Damien Ellis MD Reason For Study: Atrial Fibrillation Exam Location: [facility]. Interpretation Summary DAVEY performed to guide BATOOL closure in catheterization laboratory. Baseline: No BATOOL thrombus. Max os diameter of ~22 mm. Small pericardialeffusion. Post: 27 mm Watchman FLX device well-seated within BATOOL. No mary-deviceleak. No change in pericardial effusion. Irid-iv-unkfn flow across atrialseptostomy. See report for additional [...] fibrillation documented in this encounter Care Teams Digital Production Operator Relationship Specialty Start Date End Date Urbano Jimenez DO [address] [place] [address] PCP - General Family Medicine 03/18/22 Ruchi Valles RN Nurse Clinic Transplant Surgery 07/30/15 documented as of this encounter
--- OUTSIDE RECORDS SUMMARY | 2024-05-16 17:18 | XMS_ITS | Encounter Summary ---
Author Organization [facility] Address [place] [address] Care Team Providers Care Print Finishing Worker Name Role Phone Adeel Urbano KIRBY Primary Care Provider [phone] Encounter Details Date Type Department Care Team (Late st Contact Info) Description 02/25/2022 9:30 AM EDT Office Visit Cardiology at [address] [address] Byron Brown MD [facility] [place] [address] Atrial fibrillation, unspecified type; Atrial fibrillation with [...] Brown MD - 02/25/2022 9:30 AM EDT [facility] [place] [address] CARDIOLOGY/ VASCULAR OUTPATIENT NOTE Cody Bolden Urbano Denis, OFFICE VISIT : From the recent discharge summary: (01/31/2022) This is a 71 year old gentleman, followed by cardiology at [facility] (Dr Michael Brown). 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 ??2019 he underwent PCI, also history of basal ganglia bleed. ??Now with atrial fibrillation. ?? He underwent pacemaker implantation (see details below). Note that we did not anticoagulate him as he has history of basal ganglia bleed. His [id number] score is high and I have reached out to his chief architect (Dr. Michael Brown) to have him follow up (attempt at methodist of sinus, benefits:risks foranticoagulation, consideration of Watchman Device). From the recent device interrogation (02/12/2022) ?? Heart rate histograms: reasonable distribution ?? Pacing percentages: AP 6.3%; PUBLIC BATH ATTENDANT 61.5 % ?? 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 He was not feeling well about 2 weeks after the pacemaker - although mostly nonspecific symptoms such as fatigue. He was seen at his local ER at [facility] (02/16/2022) and [facility] (02/18/2022). However, both times he was released after initial evaluation. It is noted that his metoprolol wasincreased and I believe this may have helped with further rate control. He had a follow-up echo as an outpatient at [facility] on 02/19/2022. Results are below. Trivial pericardial [...] 3 months or prn Byron Brown MD, [facility] Cardiovascular Medicine [facility] [address] Clinic [phone] Clinic Team Nurse: [phone] The total time associated with this visit was 40 minutes. documented in this encounter Plan of Treatment Upcoming Encounters Date Type Department Care Team (Late st Contact Info) Description 06/22/2024 11:00 AM EST Visit (TeleHealth) Cardiology at [address] [phone] Byron Brown MD [facility] [place] [address] 07/14/2024 10:00 AM EST Hospital Encounter Non[place] [address] Arrived documented as of this encounter Goals Goal Patient Goal Type Associated Problems Recent Progress Patient-Stated? Author [facility] Medication Compliance and Understanding Patient [...] (Bezet) 501 ms MUSE SYSTEM Calculated R Power -72 degrees MUSE SYSTEM Calculated T Power 104 degrees MUSE SYSTEM INTERPRETATION Atrial flutter with intrinsic complexes and ??ventricular- paced complexes Left anterior fascicular block Poor R wave progression Abnormal ECG When compared with ECG of 30-JAN-2022 19:53, ventricular-pa brenda complexes are now present Confirmed by MD Kelly Danette ([id number]) on 02/25/2022 3:30:31 PM MUSE SYSTEM 02/25/2022 9:48 AM EDT 02/25/2022 3:30 PM EDT Byron Brown MD ECG ORDERABLES MUSE SYSTEM documented in this encounter Visit Diagnoses Diagnosis Atrial fibrillation, unspecified type Atrial fibrillation with RVR - had flutter initially, then fib Atrial fibrillation documented in this encounter Care Teams Print Finishing Worker Relationship Specialty Start Date End Date Urbano Denis DO [address] [place] [address] [address] [place] [address] PCP - General 09/03/12 03/17/22 Ruchi Valles RN Nurse Clinic Transplant Surgery 07/30/15 documented as of this encounter
--- OUTSIDE RECORDS SUMMARY | 2024-05-16 17:18 | XMS_ITS | Encounter Summary ---
Author Organization [facility] Address [facility] [place] [address] Care Team Providers Care Embroidery Assistant Name Role Phone AdeelUrbano Primary Care Provider Encounter Details Date Type Department Care Team (Late st Contact Info) Description 02/10/2022 Notes Only Cardiology at [address] [phone] Yossi Eric, RN Social History Tobacco Use [...] C; CVA; HF and current cigar smoker. [id number] VASc: 7 ( HF, HTN, DM, CVA, Vascular Disease, Age) HAS-BLED: 6 (HTN, RF, CVA, Bleeding, Age) Anticoagulation/antiplatelet: None currently Plan: Schedule clinic with . documented in this encounter Plan of Treatment Upcoming Encounters Date Type Department Care Team (Late st Contact Info) Description 06/22/2024 11:00 AM EST TH Visit (TeleHealth) Cardiology at [address] [phone] Byron Brown MD [facility] [address] 07/14/2024 10:00 AM EST Hospital Encounter Non-[place] [phone] Arrived documented as of this encounter Goals [...] on filedocumented in this encounter Care Teams Embroidery Assistant Relationship Specialty Start Date End Date Urbano Denis DO [address] [place] [address] [address] [place] [address] PCP - General 09/03/12 03/17/22 Hai STNALEY,Ruchi Nurse Clinic Transplant Surgery 07/30/15 documented as of this encounter
--- OUTSIDE RECORDS SUMMARY | 2024-05-16 17:18 | XMS_ITS | Encounter Summary ---
Author Organization [facility] [place] [address] Care Team Providers Care Underwriting Director Name Role Phone Urbano Jimenez Ray KIRBY Primary Care Provider [phone] Reason for Visit * Reason Onset Date Comments Medication Refill 04/28/2022 Encounter Details Date Type Department Care Team (Late st Contact Info) Description 04/28/2022 Refill Solid [place] [phone] Marisela Metcalf RN Other complication of kidney [...] 11:00 AM EST Visit (TeleHealth) Cardiology at [address] [phone] Byron Brown MD [facility] [place] [address] 07/14/2024 10:00 AM EST Hospital Encounter Non-[place] [address] Arrived documented as of this encounter Goals [...] immunotherapy documented in this encounter Care Teams Underwriting Director Relationship Specialty Start Date End Date Urbano Jimenez DO [address] [place] [address] PCP - General Family Medicine 03/18/22 Ruchi Valles RN Nurse Clinic Transplant Surgery 07/30/15 documented as of this encounter
--- OUTSIDE RECORDS SUMMARY | 2024-05-16 17:18 | XMS_ITS | Encounter Summary ---
[place] [address] Care Team Providers Care Environmental Remediation Specialist Name Role Phone Urbano Denis DO Primary Care Provider [phone] Reason for Visit * Reason Onset Date Comments Post Procedure Call 02/06/2022 Encounter Details Date Type Department Care Team (Late st Contact Info) Description 02/06/2022 Notes Only Cardiology at [address] [phone] Carmela Bentley, RN Post Procedure Call Social [...] AM EST TH Visit (TeleHealth) Cardiology at [address] [phone] Byron Brown MD [facility] [place] [address] 07/14/2024 10:00 AM EST Hospital Encounter Non-Invasive [place] [address] Arrived documented as of this [...] filedocumented in this encounter Care Teams Environmental Remediation Specialist Relationship Specialty Start Date End Date Urbano Denis DO [address] [place] [address] PCP - General 09/03/12 03/17/22 Ruchi Valles RN Nurse Clinic Transplant Surgery 07/30/15 documented as of this encounter
--- OUTSIDE RECORDS SUMMARY | 2024-05-16 17:18 | XMS_ITS | Encounter Summary ---
Author Organization [facility] [place] [address] Care Team Providers Care Flooring Machine Feeder Name Role Phone Urbano Jimenez Ray KIRBY Primary Care Provider Encounter Details Date Type Department Care Team (Latest Contact Info) Description 03/18/2022 Orders Only Solid [place] [phone] Tal Eagle MD [facility] [place] [address] H/O kidney transplant; Vitamin D deficiency; group home current use of immunosuppressive drug [...] EST TH Visit (TeleHealth) Cardiology at [address] [phone] Byron Brown MD [facility] [place] [address] 07/14/2024 10:00 AM EST Hospital Encounter Non-[place] [address] Arrived Scheduled Orders Name Type Priority Associated Diagnoses Orde r Schedule CBC (with Diff) Lab Routine H/O kidney transplant Vitamin D deficiency group home current use of immunosuppressive drug Expected: 03/18/2022, Expires: 09/16/2023 Comprehensive metabolic panel (non-fasting) Lab Routine H/O kidney transplant Vitamin D deficiency ad terminal makeup operator current use of immunosuppressive drug Expected: 03/18/2022, Expires: 09/16/2023 Phosphorus Lab Routine H/O kidney transplant Vitamin D deficiency group home current use of immunosuppressive drug Expected: 03/18/2022, Expires: 09/16/2023 Magnesium Lab Routine H/O kidney transplant Vitamin D deficiency ad terminal makeup operator current use of immunosuppressive drug Expected: 03/18/2022, Expires: 09/16/2023 Uric acid Lab Routine H/O kidney transplant Vitamin D deficiency group home current use of immunosuppressive drug Expected: 03/18/2022, Expires: 09/16/2023 Protein/Creatinine Ratio, urine Lab Routine H/O kidney transplant Vitamin D deficiency ad terminal makeup operator current use of immunosuppressive drug Expected: 03/18/2022, Expires: 09/16/2023 Lavender Tube HOLD Lab Routine H/O kidney transplant Vitamin D deficiency ad terminal makeup operator current use of immunosuppressive drug Expected: 03/18/2022, Expires: 09/16/2023 documented as of this encounter Goals Goal Patient Goal Type Associated Problems Recent Progress Patient-Stated? Author [facility] Medication Compliance and Understanding Patient Facing Action Plan On track( 017 10:41 AM EDT) Selena Scott [facility] Note: Patient Goal: Clear [...] Eagle MD URINE ORDERABLES Performing Organization Address City/[facility] Co de Phone Number [facility] [place] [address] * Magnesium, urine, random (03/18/2022 11:01 AM EDT) Magnesium, Urine 2.28 mmol/L [facility] Urine 03/18/2022 11:0 1 AM EDT 03/18/2022 11:20 AM EDT Narrative Resulting Agency Comment Spec In Lab Tal Eagle MD URINE ORDERABLES Performing Organization Address [facility] de Phone Number [facility] [place] [address] * Calcium Creatinine Ratio, random urine (03/18/2022 11:01 AM EDT) Calcium, Urine 11.9 mg/dL [facility] Creatinine, Urine 145 mg/dL [facility] Calcium / Creatinine Ratio, Urine 0.08 ratio [facility] Urine 03/18/2022 11:0 1 AM EDT 03/18/2022 11:20 AM EDT Narrative Resulting Agency Comment Spec In Lab Tal Eagle MD URINE ORDERABLES Performing Organization Address [facility] Co de Phone Number [facility] [place] [address] * BKV Quant Blood (03/18/2022 10:58 AM [...] MD MOLECULAR ORDERAB LES Performing Organization Address [facility] Co de Phone Number [facility] [place] [address] * Gold Tube HOLD (03/18/2022 10:58 AM EDT) Gold Hold Sample in lab. [facility] Blood 03/18/2022 10:5 8 AM EDT 03/18/2022 11:13 AM EDT Tal Eagle MD CHEMISTRY ORDERAB LES Performing Organization Address [facility] Co de Phone Number [facility] [place] [address] * 1,25-dihydroxycholecalciferol (03/18/2022 10:58 AM EDT) Vit D 1,25 Dihydroxy (NOVEMBER) 43 18 - 64 pg/mL [facility] Comment: ADDITIONAL INFORMATION This test was developed and its performance characteristics determined by [facility] in a manner consistent with CLIA requirements. This test has not been cleared or approved by the U.S. Food and Drug Administration. Test Performed by: [facility] - [address] [address] Human Services Program Specialist: Edinson Garcia M.D. Ph.D.; CLIA# [id number] Blood 03/18/2022 10:5 8 AM EDT 03/18/2022 1:56 PM EDT Narrative Resulting Agency Comment Spec In Lab Tal Eagle MD LAB SEND OUT ORDBhargav JENNINGS Performing Organization Address [facility] Co de Phone Number [facility] [place] [address] * Vitamin D, 25-Hydroxy (03/18/2022 10:58 AM EDT) Vitamin D Total 25 OH 39 21 - 100 ng/mL [facility] Vit D Interp Sufficient [facility] Blood 03/18/2022 10:5 8 AM EDT 03/18/2022 11:13 AM EDT Narrative Resulting Agency Comment Spec In Lab Tal Eagle MD CHEMISTRY ORDERAB LES Performing Organization Address [facility] Co de Phone Number [facility] [place] [address] * PTH (03/18/2022 10:58 AM EDT) Parathyroid Hormone 38 15 - 65 pg/mL [facility] Blood 03/18/2022 10:5 8 AM EDT 03/18/2022 11:17 AM EDT Narrative Resulting Agency Comment Spec In Lab Tal Eagle MD CHEMISTRY ORDERAB LES Performing Organization Address [facility] Co de Phone Number [facility] [place] [address] * Reticulocyte Count (03/18/2022 10:58 AM EDT) [...] Spec In Lab Tal Eagle MD HEMATOLOGY SUNIA BG [facility] [place] [address] * (ABNORMAL) Hemoglobin A1c (03/18/2022 10:58 AM [...] Mellitus, Diabetes Care 2013; 36: Suppl. 1, S67-61 Estimated Average Glucose See note mg/dL [facility] [...] into estimated average glucose values. ??Diabetes Care 2008:31(8):9738-8713. Blood 03/18/2022 10:5 8 AM EDT 03/18/2022 11:17 AM EDT Narrative Resulting Agency Comment Spec In Lab Tal Eagle MD CHEMISTRY ORDERAB LES [facility] [place] [address] documented in this encounter Visit Diagnoses Diagnosis H/O kidney transplant Kidney replaced by transplant Vitamin D deficiency Unspecified vitamin D deficiency group home current use of immunosuppressive drug documented in this encounter Care Teams Flooring Machine Feeder Relationship Specialty Start Date End Date Urbano Jimenez DO [address] [place] [address] PCP - General Family Medicine 03/18/22 Ruchi Valles RN Nurse Clinic Transplant Surgery 07/30/15 documented as of this encounter
--- OUTSIDE RECORDS SUMMARY | 2024-05-16 17:19 | XMS_ITS | Encounter Summary ---
Author Organization [facility] [place] [address] Care Team Providers Care Water Restoration Technician Name Role Phone AdeelUrbano toscano Primary Care Provider [phone] Reason for Visit * Reason Onset Date Comments Medication Refill 10/04/2021 Encounter Details Date Type Department Care Team (Late st Contact Info) Description 10/04/2021 Refill [place] [phone] Tal Eagle MD [facility] [place] [address] Other complication of kidney transplant; Prophylactic immunotherapy [...] EST TH Visit (TeleHealth) Cardiology at [address] [address] Byron Brown MD [facility] [place] [address] 07/14/2024 10:00 AM EST Hospital Encounter Non-[place]vasive [place] [address] Arrived documented as of this [...] immunotherapy documented in this encounter Care Teams Water Restoration Technician Relationship Specialty Start Date End Date Urbano Denis DO [address] [place] [address] PCP - General 09/03/12 03/17/22 Ruchi Valles RN Nurse Clinic Transplant Surgery 07/30/15 documented as of this encounter
--- OUTSIDE RECORDS SUMMARY | 2024-05-16 17:19 | XMS_ITS | Encounter Summary ---
Author Organization [facility] Address [facility] [place] [address] Care Team Providers Care School Transportation Supervisor Name Role Phone Urbano Denis DO Primary Care Provider Reason for Referral * Consultation (Routine) - Closed Specialty Diagnoses / Procedures Referred By Humberto flor Referred To Contact General Surgery Diagnoses Postprandial RUQ pain Hepatitis C virus infection without hepatic coma, unspecified chronicity Gall stones Hepatic steatosis Other complication of kidney transplant Tal Eagle MD [facility] [place] [address] Matt Corea MD [facility] [place] [address] Referral ID Status Reason Start Date Expiration Date V isits Requested Visits Authorized [id number] Closed Consult, Test & Treat 10/22/2021 10/22/2022 1 1 Encounter Details Date Type Department Care Team (Latest Contact Info) Description 10/02/2021 11:20 AM EDT Office Visit [place] [address] Tal Eagle MD [facility] [place] [address] Postprandial RUQ pain; Hepatitis C virus infection [...] Cortés) and diverticulitis 03/2021 (see [facility]). He has no residual defects. Has seen Dr. Brown via telehealth and his cardiomuopathy has improved and he seems stable now. Previously rec'd both COVID shots (09/12 and 10/03/20) and since the last time he was seen his 3rd:05/11/2021 - [facility]; today he rec'd an updated pneumovax 23 [...] hepatitis) 08/25/2016 ??? Prophylactic immunotherapy 09/22/2016 ??? assisted current use of immunosuppressive drug 09/22/2016 ??? [...] 0.17) performed by Joseph Ang MD at [facility] MAIN OR ??? PRO ANASTOMOSIS, AV, ANY SITE Left 05/09/2015 AV FISTULA CREATION, DIRECT HEMODIALYSIS, ANY SITE, EG ASHWINI FISTULA UPPER EXTREMITY performed by Que Amaro MD at [facility] MAIN OR ??? PRO CYSTOURETHROSCOPY, URETER CATHETER Left 06/17/2018 CYSTO, RETROGRADE, URETEROPYELOGRAPHY (WRVU 2.37) performed by Edinson Grider III, MD at [facility] [place]IS ??? PRO LAMINEC/FACETECT/FORAMIN, LUMBAR 1 [...] Left 01/31/2019 US Renal Transplant Left 01/31/2019 [facility] RAD ULTRASOUND ??? US RENAL TRANSPLANT LEFT Left 02/07/2019 US Renal Transplant Left 02/07/2019 [facility] RAD ULTRASOUND ?? Current Outpatient Medications: ??? [...] for diabetics, every 5 for non diabetics [place] kidney ultrasound looking for renal cell CA, [...] from 10/02/2021 in Solid Organ Transplant at [facility] Weight 102.5 kg (226 lb) Temp 36.7 [...] - No asterixis. ? Labs obtained at [facility]: 09/10/21 Creat 1.4 Ca 9.3 Lipid [...] ? Immunosuppression -Prograf, Cellcept ?? Proteinuria Likely citizen [place] kidney involvement, no nephrosis ? PO4/Mg - Kphos.??2 tabs bid - Magnesium??gluconate [id number] TID ?? Erythrocytosis -??cont' to observe No [...] watchful waiting in anticipation of progression ? [id number] labs f/u in??September 2022 ?? ? Discussion with the patient and/or family concerned the following: ?Diagnostic results or recommended studies ?Prognosis; ?Risks and benefits of management; ?Instructions for management; ?Compliance with treatment; ?Risk factor reduction; ?Patient and family education. ? Total time?25 of 30 min??in direct face to face group counselor. documented in this encounter Plan of Treatment Upcoming Encounters Date Type Department Care Team (Late st Contact Info) Description 06/22/2024 11:00 AM EST TH Visit (TeleHealth) Cardiology at [address] [phone] Byron Brown MD [facility] [place] [address] 07/14/2024 10:00 AM EST Hospital Encounter Non-[place]vasive [place] [address] Arrived Scheduled Referrals Name Type [...] immunotherapy documented in this encounter Care Teams School Transportation Supervisor Relationship Specialty Start Date End Date Urbano Denis DO [address] [place] [address] PCP - General 09/03/12 03/17/22 Ruchi Valles RN Nurse Clinic Transplant Surgery 07/30/15 documented as of this encounter
--- OUTSIDE RECORDS SUMMARY | 2024-05-16 17:19 | XMS_ITS | Encounter Summary ---
[place] [address] Care Team Providers Care Key Maker Name Role Phone Urbano Denis DO Primary Care Provider Encounter Details Date Type Department Care Team (Late st Contact Info) Description 02/04/2022 Telephone Cardiology at [address] [phone] Marisela Bob, RN Social History Tobacco Use [...] AM EST TH Visit (TeleHealth) Cardiology at [address] [phone] Byron Brown MD [facility] [place] [address] 07/14/2024 10:00 AM EST Hospital Encounter Non-[place] [address] Arrived documented as of this [...] on filedocumented in this encounter Care Teams Key Maker Relationship Specialty Start Date End Date Urbano Denis DO [address] [place] [address] PCP - General 09/03/12 03/17/22 Ruchi Valles RN Nurse Clinic Transplant Surgery 07/30/15 documented as of this encounter
--- OUTSIDE RECORDS SUMMARY | 2024-05-16 17:19 | XMS_ITS | Encounter Summary ---
Author Organization [facility] [place] [address] Care Team Providers Care Inspector Multifocal Lens Name Role Phone AdeelUrbano toscano Primary Care Provider Encounter Details Date Type Department Care Team (Late st Contact Info) Description 01/30/2022 12:20 PM EDT Ancillary Procedure Radiology Library at [facility] [place] [address] Nik Light MD [facility] [place] [address] Social History Tobacco Use Types Packs/Day Years [...] st Contact Info) Description 06/22/2024 11:[address] [facility] Visit (TeleHealth) Cardiology at [address] [address] Byron Brown MD [facility] [place] [address] 07/14/2024 10:00 AM EST Hospital Encounter Non-Invasive [place] [phone] Arrived documented as of this encounter Goals [...] Light MD IMG FILM LIBRARY ORD ERABLES [place], [place] documented in this encounter Visit Diagnoses Not on filedocumented in this encounter Care Teams Inspector Multifocal Lens Relationship Specialty Start Date End Date Urbano Denis DO [address] [place] [address] PCP - General 09/03/12 03/17/22 Ruchi Valles RN Nurse Clinic Transplant Surgery 07/30/15 documented as of this encounter
--- OUTSIDE RECORDS SUMMARY | 2024-05-16 17:19 | XMS_ITS | Encounter Summary ---
[place] [address] Care Team Providers Care Blurb Writer Name Role Phone Urbano Denis DO Primary Care Provider [phone] Reason for Referral * Diagnostic Test (Routine) - Closed Specialty Diagnoses / Procedures Referred By Humberto flor Referred To Contact Cardiology Diagnoses Tachy-roman syndrome Procedures Echocardiogram Transthoracic Shaq Damon MD [facility] [place] [address] [facility] [place] [address] Referral ID Status Reason Start Date Expiration Date V isits Requested Visits Authorized [id number] Closed Specialty Service Requested 02/19/2022 04/19/2022 1 1 Encounter Details Date Type Department Care Team (Late st Contact Info) Description 02/05/2022 11:00 AM EDT TH Visit (TeleHealth) Cardiology at [address] [address] Shaq Damon MD [facility] [place] [address] Tachy-roman syndrome Social History Tobacco [...] original note were not included. [facility] [place] [address] CARDIOLOGY/ VASCULAR OUTPATIENT NOTE Ethel Denis, OFFICE VISIT : (telehealth/phone) SUBJECTIVE: I spoke with Yash kAins and his by phone today. As below, [...] sees a local physician, Shannan Colunga, at [facility] for Parkinson's. His walking is somewhat limited due to this. We discussed the issues surrounding anticoagulation. See below. From the recent discharge summary: ?? This is a 71 year old gentleman, followed by cardiology at [facility] (Dr Michael Damon). 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 ??2019 he underwent PCI, also history of basal ganglia bleed. ??Now with atrial fibrillation. ?? He underwent pacemaker implantation (see details below). Note that we did not anticoagulate him as he has history of basal ganglia bleed. His [id number] score is high and I have reached out to his communications director (Dr. Michael Damon) to have him follow up (attempt at latter-day of sinus, benefits:risks foranticoagulation, consideration of Watchman Device). From my prior note (03/2021): 70 year old male ?? S/p kidney transplant in 2016. ? Admitted to [facility] in January 2019 with newly diagnosed AFlutter [...] kidney transplant in 2016. ? Admitted to [facility] in January 2019 with newly diagnosed AFlutter and a NSTEMI. ??He underwent cardiac cath and PCI to an OM lesion. ??LVEF was initially 30% (while in AFL with RVR) - but improved over time back to normal (most recent echo 2020 with normal LVEF). Readmitted to [facility] in January 2022 with recurrent AF, presumed [...] occluder) would be a reasonable option for fci management and the patient is in agreement. We will refer the patient to the structural heart team. ?? Follow-up plan: 3 months with an echo at that time (LVEF ?). Shaq Damon MD, [facility] Cardiovascular Medicine [facility] [address] Clinic [phone] Clinic Team Nurse: [phone] The total time associated with this visit was 30 minutes. documented in this encounter Plan of Treatment Upcoming Encounters Date Type Department Care Team (Late st Contact Info) Description 06/22/2024 11:00 AM EST TH Visit (TeleHealth) Cardiology at [address] [phone] Shaq Damon MD [facility] DR CARDIOLOGY [place] [id number] 07/14/2024 10:00 AM EST Hospital Encounter Non-[place] [phone] Arrived documented as of this encounter Goals Goal Patient Goal Type Associated Problems Recent Progress Patient-Stated? Author DH [place] Medication Compliance and Understanding Patient Facing Action [...] : 1950 ?Height: 180 cm ? Account: [id number] Age: 71 yrs ?Weight: 103 kg Gender: [...] is moderate mitral regurgitation. Procedure Limited - 77888. Doppler - 24959. Color Doppler - 48095. Satisfactory quality. There is a pacemaker rhythm. [...] HR: 68 : 1950 Height: 180 cm Account:[id number] Age: 71 yrs Weight: 103 kg Gender: [...] is moderate mitral regurgitation. Procedure Limited - 82822. Doppler - 55835. Color Doppler - 91058. Satisfactoryquality. There is a pacemaker rhythm. Left [...] Dyskinetic 3-5moderate 5 - 6-14large Aneurysmal 15-16diffuse hSaq Damon MD ECHO ORDERABLES documented in this encounter Visit Diagnoses Diagnosis Tachy-roman syndrome Sinoatrial node dysfunction Tachy-roman syndrome Sinoatrial node dysfunction documented in this encounter Care Teams Blurb Writer Relationship Specialty Start Date End Date Urbano Denis DO [address] [place] [address] [address] [place] [address] PCP - General 09/03/12 03/17/22 Hai STANLEY,Ruchi Nurse Clinic Transplant Surgery 07/30/15 documented as of this encounter
--- OUTSIDE RECORDS SUMMARY | 2024-05-16 17:19 | XMS_ITS | Encounter Summary ---
Author Organization formerly [place] [address] Care Team Providers Care Quality Process Engineer Name Role Phone Urbano Denis DO Primary Care Provider + [phone] Reason for Visit * Auth/Cert Specialty Diagnoses / Procedures Referred By Humberto flor Referred To Contact Diagnoses Tachy-roman syndrome Tachy-Roman Syndrome Procedures emerg robbi Niru Harrison MD [facility] [place] [address] [facility] Referral ID Status Reason Start Date Expiration Date Visits Re quested Visits Authorized [id number] 1 1 Encounter Details Date Type Department Care Team (Late st Contact Info) Description 01/31/2022 10:45 AM EDT - 01/31/2022 1:45 PM EDT Surgery [place] [address] Jay Urban MD [facility] [place] [address] ELECTROPHYSIOLOGY PROCEDURE Social History Tobacco Use Types [...] Ethel Akins Patient Age: 71 y.o. Language: [place] Citizen Race: White Ethnicity: Not nor Admit date: 01/30/2022 Discharge date and time: 02/01/2022 Attending Physician: Misael Ellis MD Discharge Physician: Misael Ellis MD ?? I have seen and examined this patient and discussed with the sports broadcasting internship, resident, fellow. ??I agree with the plan noted ?? This is a 71 year old gentleman, followed by cardiology at [facility] (Dr Michael Brown). 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 ??2019 he underwent PCI, also history of basal ganglia bleed. ??Now with atrial fibrillation. He underwent pacemaker implantation (see details below). Note that we did not anticoagulate him as he has history of basal ganglia bleed. His [id number] score is high and I have reached out to his vp biology (Dr. Michael Brown) to have him follow up (attempt at synagogue of sinus, benefits:risks foranticoagulation, consideration of Watchman Device). Niru Harrison MD, Karen, FACC Attending Spanish Professor ID: Ethel Akins is a 71 y.o. [...] DO [address] [place] [address] / [facility] [id number] Pending Studies and Lab Data: none Discharge [...] Vitamin D deficiency ??? 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 CAH [...] s/p renal transplant in 2016, also with hkv-lpxdmza-fqceblmyn diabetesmellitus, who presents with 3 weeks of intermittent lightheadedness. ?? He reports that approximately 3 weeks ago intermittent lightheadedness that was random and without any associated factors. He presented to the ER 2 times, initially to [facility] where hewas incidentally found to have [...] after that. This morning he presented to [facility] with frequent e pisodes of lightheadedness, as well as dyspnea on exertion, and was found to be in A. fib with intermittent bradycardia into the 20s. [facility] cardiology was consulted for transfer for pacemaker [...] place for about 24 hours. ?? At [facility] labs were notable for WBC 10.3, [...] Mr. Akins presented as a transfer from [facility] due to symptomatic pauses in [...] therapeutic range. 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 Procedures: Dual-Chamber [...] leaving the hospital. PCP: Urbano Denis, @ [phone] General Instructions - BEGIN EP DISCHARGE INSTRUCTIONS - FINAL PACEMAKER RECOMMENDATIONS: 1. Standard post implant discharge instructions (see below): 2. Medications as listed above. 3. You may use ice packs over the incision. Make sure to use a cloth printing utility worker (such as a towel) in between the [...] F. The office scheduling phone number is [phone]. ARM MOVEMENT RESTRICTIONS POST-IMPLANT - Do not [...] product, please call the device clinic at [phone]. - END EP DISCHARGE INSTRUCTIONS - Future Appointments and Orders Future Appointments and Orders Future Appointments Provider Department Dept Phone 02/05/2022 11:00 AM Byron Brown MD Cardiology at [facility] Arrive at: Breakfast And Room Attendant Area [phone] 02/12/2022 11:00 AM Elisha Amaya RN Cardiology at [facility] Arrive at: Breakfast And Room Attendant Area [phone] 04/04/2022 1:30 PM Mayco Barnes PA Cardiology at [facility] Arrive at: Breakfast And Room Attendant Area [phone] 05/05/2022 1:30 PM Elisha Amaya RN Cardiology at [facility] Arrive at: Breakfast And Room Attendant Area [phone] Primary Team Inpatient Physicians at [facility] was: Attending Physician(s): Niru Harrison MD Fellow: Que Raygoza MD Resident(s): Kayy Acosta MD Inpatient Provider Contact Information: If you have questions about this document please contact the [facility] shell reprint operator at and ask for one of [...] incision. Make sure to use a cloth printing utility worker (such as a towel) in between the [...] F. The office scheduling phone number is [phone]. ARM MOVEMENT RESTRICTIONS POST-IMPLANT - Do not [...] product, please call the device clinic at [phone]. - END EP DISCHARGE INSTRUCTIONS - * [...] leaving the hospital. PCP: Urbano Denis, @ [phone] documented in this encounter Medications at Time [...] Mr. Akins is referred to his primary vp biology ,Dr. Brown and his neurologist, Dr. Rebolledo regarding this issue. Post implant arm restrictions discussed. Follow up at [facility] device clinic. Nikolas Loving MD [facility] Cardiac Electrophysiology 02/01/2022 9:44 AM * Nikolas Loving MD - 02/01/2022 9:17 AM EDT Cardiac Electrophysiology Post-Implant Device Assessment/Rounding Note Ethel Akins [id number] 02/01/2022 History: Ethel Akins is a 71 [...] FINAL LEAD PARAMETERS: Pulse generator: ? 1. [email or web address] Geneva XT DR MRI Model #W1DR01, Serial # [id number] Atrial lead ?? 1. Medtronic CapsureFix Model# 5076-45 cm Serial# [id number] ??? Bipolar, steroid-tipped, active-fixation IS-1 lead ??? Access: ? Right Axillary vein ??? Location ? Right atrial appendage ??? F wave, pacemaker: ?? 0.6 mV ??? Pacing threshold, pacemaker: N/A (pt in atrial flutter) ??? Impedance, pacemaker: ??437 Ohms ??? Diaphragmatic Stim. @ 8V: ??No Ventricular electrode: ?? Medtronic CapsureFix Model# 5076-52 cm Serial# [id number] ??? Bipolar, steroid-tipped, active-fixation IS-1 lead ??? Access: ? Right Axillary vein ??? Location: ?Right ventricular apical septum ??? R wave, pacemaker: ?11.1 mV ??? Pacing threshold, pacemaker: 0.5 V at 0.4 ms ??? Impedance, pacemaker: ??607 ohms ??? Diaphragmatic Stim. @ 8V : No Diagnostics Pacing Mode: AAIR <==> DDDR 60/130/130 Presenting EGMs: -VS/-MANAGER LAN Underlying Rhythm: AFib 70-80's Atrial Episodes: 97.2% [...] post placement of right anterior chest wall dual-business unit leader. Impression: 71 y.o. male who is [...] 02/01/22. ? Dr. Nikolas Loving, electrophysiology attending ([id number]) * Niru Harrison MD - 02/01/2022 9:09 AM EDT Cardiology Day of Discharge Note ?? I have seen and examined this patient and discussed with the sports broadcasting internship, resident, fellow. ??I agree with the plan noted ?? This is a 71 year old gentleman, followed by cardiology at [facility] (Dr Michael Brown). 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 ??2019 he underwent PCI, also history of basal ganglia bleed. ??Now with atrial fibrillation. He underwent pacemaker implantation (see details below). Note that we did not anticoagulate him as he has history of basal ganglia bleed. His [id number] score is high and I have reached out to his vp biology (Dr. Michael Brown) to have him follow up (attempt at synagogue of sinus, benefits:risks foranticoagulation, consideration of Watchman Device). ?? Niru Harrison MD, Karen, [facility] Cardiology Attending? Ethel Akins was seen and [...] examined this patient and discussed with the sports broadcasting internship, resident, fellow. I agree withthe plan noted ?? This is a 71 year old gentleman, followed by cardiology at [facility] (Dr Michael Brown). He has history of renal transplant, previous tachy-cardia mediated cardiomyopathy but recovered LV systolic function. 2019 he underwent PCI, also history of basal ganglia bleed. Now with atrial fibrillation. He will be ev aluated for pacemaker implantation--question of tachy/roman syndrome. ?? Niru Harrison MD, Karen, [facility] Cardiology Attending ?? Patient Name: Ethel Akins [...] Kayy Acosta MD Internal Medicine PGY-1 Pager [phone], M1-S1 Service * Carmela Alicia RN - [...] examined this patient and discussed with the sports broadcasting internship, resident, fellow. I agree withthe plan noted This is a 71 year old gentleman, followed by cardiology at [facility] (Dr Michael Brown). He has history of renal transplant, previous tachy-cardia mediated cardiomyopathy but recovered LV systolic function. 2019 he underwent PCI, also history of basal ganglia bleed. Now with atrial fibrillation. He will be ev aluated for pacemaker implantation--question of tachy/roman syndrome. Niru Harrison MD, Karen, [facility] Cardiology Attending Patient Name: Ethel Akins Service: Cardiology Team Responsible Attending: MISAEL ELLIS MD PCP: Urbano Denis DO PCP phone #: [phone] ID/Chief Complaint: Lightheadedness Tachybradycardia syndrome History of Present Illness: Mr. 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 He reports that approximately 3 weeks ago intermittent lightheadedness that was random and without any associated factors. He presented to the ER 2 times, initially to [facility] where hewas incidentally found to have [...] after that. This morning he presented to [facility] with frequent e pisodes of lightheadedness, as well as dyspnea on exertion, and was found to be in A. fib with intermittent bradycardia into the 20s. [facility] cardiology was consulted for transfer for pacemaker [...] in place for about 24 hours. At [facility] labs were notable for WBC 10.3, [...] Vitamin D deficiency ??? 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 CAH [...] kg ABG No results for input(s): PHART, JCR4XVO, PO2ART, SPJ6EJQ in the last 168 hours. Examination: General [...] in the last 7068 hours. Invalid input(s): [id number] Heme: No results for input(s): LDH, HAPTOGLOBIN, URICACID in the last 168 hours. Microbiology: None Diagnostic Studies: No results found for this visit on 01/30/22. EKG here 01/30: Prior EKG at [facility] 01/10: CXR 01/30/22- MRI brain at [facility] 01/16/22: ASSESSMENT: Mr. Black is a 71M [...] block and frequent symptomatic pauses, transferred from [facility]. 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 Unclear trigger of his recurrent aflutter that was not detected on prior zioin 03/2021. No recent ischemic or infectious symptoms and exam today is benign. PLAN: Admit to Cardiology Team S1, Team Pager #[phone](S1) #Aflutter with variable block #symptomatic systolic pauses [...] MD Medicine, PGY-2 Cardiology Team S1, pager #[phone] 01/30/2022 documented in this encounter Miscellaneous Notes [...] were not included. [facility] [place] [address] CARDIOLOGY ELECTROPHYSIOLOGY NOTE 01/31/22 Consult Reason: Lightheadedness in the setting of afib/aflutter tachy-roman syndrome and ESRD status HPI: Mr. Akins is a pleasant 71 yo M with hx of atypical aflutter/afib, HTN, tachy-roman syndrome, renal transplant who was transferred to [facility] on 01/30/22 for frequent episodes of lightheadedness. [...] night. He presented to the ED in [facility] three times over the past three weeks [...] arrhythmia and still living, age 89 Father -CT at age 62 Social Hx: T: smokes cigars E: has not had alcohol in years, no hx of heavy ETOH use D: no substance use [place]. Retired. Allergy: + Chappell No medication allergies No current facility-administered medications [...] 95, LAFB, qtc 500 EKG 01/30/22 at [facility]: afib, HR 76 TTE 01/31/22: LVEF [...] past three weeks. He was transferred to [facility] for EP evaluation. He has a hx of renal transplant in 2016 and developed an RAY with Cr up to 1.8s from 1.2 oneyear ago here. For this reason, optimizing his cardiac output with better rate control is needed to protect the transplanted kidney. He qualifies for a dual chamber pacemaker. RIVETING MACHINE OPERATOR AUTOMATIC was considered but this will not be [...] Gonzales. Attestation to follow. Anali Dominguez MD Primary Operator, PGY4 Pager [phone] Addendum I personally interviewed and examined the patient, reviewed the available data. The above note reflects our thoughts and discussion. This 71-year-old man is transferred from [facility], for consideration of pacemaker therapy for [...] his paroxysmal to persistentatrial fibrillation, and elevated AIP5RG1-ZDUk score, CVA protection should be considered. ERASMO GONZALES MD documented in this encounter Plan of Treatment Upcoming Encounters Date Type Department Care Team (Late st Contact Info) Description 06/22/2024 11:00 AM EST TH Visit (TeleHealth) Cardiology at [address] [address] Byron Brown MD [facility] [place] [address] 07/14/2024 10:00 AM EST Hospital Encounter Non-[place] [address] Arrived Scheduled Orders Name Type [...] Glucose, POC 120 65 - 199 mg/dL [facility] Comment: Supplemental ranges: <140 mg/dL before meals <180 mg/dL all other times of the day Blood 02/01/2022 1:13 PM EDT 02/01/2022 1:13 PM EDT Misael Ellis MD POINT OF CARE TEST O RDERABLES [facility] [place] [address] * (ABNORMAL) POCT Glucose (02/01/2022 11:21 AM EDT) Glucose, POC 254(H) 65 - 199 mg/dL [facility] Comment: Supplemental ranges: <140 mg/dL before meals <180 mg/dL all other times of the day Blood 02/01/2022 11:2 1 AM EDT 02/01/2022 11:21 AM EDT Misael Ellis MD POINT OF CARE TEST O TED Performing Organization Address [facility] de Phone Number [facility] [place] [address] * (ABNORMAL) POCT Glucose (02/01/2022 11:09 AM EDT) Glucose, POC 218(H) 65 - 199 mg/dL [facility] Comment: Supplemental ranges: <140 mg/dL before meals <180 mg/dL all other times of the day Blood 02/01/2022 11:0 9 AM EDT 02/01/2022 11:09 AM EDT Misael Ellis MD POINT OF CARE TEST O TED Performing Organization Address [facility] Phone Number [facility] [place] [address] * XR Chest PA & Lateral (Generic) (02/01/2022 7:56 AM EDT) Anatomical Region Laterality Modality Chest N/A Digital Radiogra phy Impressions 02/01/2022 11:17 AM EDT No pneumothorax status post placement of right anterior chest wall dual-business unit leader. Thank you for letting us participate in the care of this patient. ??If you are a health care provider and have any questions regarding this report, please contact the number below. ??For patients who have questions please contact the health care analyst that requested your imaging first. ? Electronically signed by: Kitty Valencia MD, [facility] ([phone]), at 02/01/2022 11:17 AM Narrative 02/01/2022 11:17 [...] status post placement of right anterior chest walldual-business unit leader. Thank you for letting us participate in the care of this patient. If youare a health care provider and have any questions regarding this report,please contact the number below. For patients who have questions please contactthe health care analyst that requested your imaging first. Electronically signed by: Kitty Valencia MD, [facility]([phone]), at 02/01/2022 11:17 AM Jay Urban MD IMG DX ORDERABLES * POCT Glucose (02/01/2022 7:32 AM EDT) [facility] Signature Glucose, POC 133 65 - 199 mg/dL [facility] Comment: Supplemental ranges: <140 mg/dL before meals <180 mg/dL all other times of the day Blood 02/01/2022 7:32 AM EDT 02/01/2022 7:32 AM EDT Misael Ellis MD POINT OF CARE TEST O RDERABLES Performing Organization Address City/[facility]/ZIP Co de Phone Number [facility] [place] [address] * Phosphorus (02/01/2022 3:29 AM EDT) Phosphorus 2.9 2.5 - 4.5 mg/dL [facility] Blood 02/01/2022 3:29 AM EDT 02/01/2022 3:43 AM EDT Narrative Resulting Agency Comment Spec In Lab Jay Urban MD CHEMISTRY ORDERABLES Performing Organization Address [facility] Co de Phone Number [facility] [place] [address] * Magnesium (02/01/2022 3:29 AM EDT) Magnesium 0.72 0.69 - 1.07 mmol/L [facility] Blood 02/01/2022 3:29 AM EDT 02/01/2022 3:43 AM EDT Narrative Resulting Agency Comment Spec In Lab Jay Urban MD CHEMISTRY ORDERABLES Performing Organization Address [facility] Co de Phone Number [facility] [place] [address] * (ABNORMAL) Basic Metabolic Panel (non-fasting) (02/01/2022 3:29 AM EDT) Glucose 104 65 - 199 mg/dL [facility] Comment:Diabetes: >=200 mg/d L plus symptoms Blood Urea Nitrogen 22(H) 10 - 20 mg/dL [facility] Creatinine 1.38 0.80 - 1.50 mg/dL [facility] Sodium 143 135 - 145 mmol/L [facility] Potassium 3.7 3.5 - 5.0 mmol/L [facility] Comment: Please note: ??Patients with WBC >100,000 may have falsely elevated Potassium levels. ??For accurate Potassium quantification in these patients send serum separator tube (gold top) for subsequent determinations. ??Contact the Clinical Chemistry Laboratory if there are any questions. Chloride 108(H) 98 - 107 mmol/L [facility] Carbon Dioxide 23 22 - 31 mmol/L [facility] Anion Gap 12 5 - 15 mmol/L [facility] Calcium 8.4(L) 8.5 - 10.5 mg/dL [facility] Est Glomerular Filtration Rate 54(L) >=60 mL/min/1. 73 m?? [facility] Comment: This patient's estimated GFR [...] In Lab Jay Urban MD CHEMISTRY ORDERABLES [facility] [place] [address] * POCT Glucose (01/31/2022 8:37 PM EDT) Glucose, POC 99 65 - 199 mg/dL [facility] Comment: Supplemental ranges: <140 mg/dL before meals <180 mg/dL all other times of the day Blood 01/31/2022 8:37 PM EDT 01/31/2022 8:37 PM EDT Misael Ellis MD POINT OF CARE TEST O RDERABLES Performing Organization Address [facility] Co de Phone Number [facility] [place] [address] * (ABNORMAL) POCT Glucose (01/31/2022 5:05 PM EDT) Glucose, POC 225(H) 65 - 199 mg/dL [facility] Comment: Supplemental ranges: <140 mg/dL before meals <180 mg/dL all other times of the day Blood 01/31/2022 5:05 PM EDT 01/31/2022 5:05 PM EDT Misael Ellis MD POINT OF CARE TEST O DENNYSERABG Performing Organization Address [facility] Co de Phone Number [facility] [place] [address] * POCT Glucose (01/31/2022 2:31 PM EDT) Glucose, POC 124 65 - 199 mg/dL [facility] Comment: Supplemental ranges: <140 mg/dL before meals <180 mg/dL all other times of the day Blood 01/31/2022 2:31 PM EDT 01/31/2022 2:31 PM EDT Misael Ellis MD POINT OF CARE TEST O TED Performing Organization Address [facility] Co de Phone Number [facility] [place] [address] * ELECTROPHYSIOLOGY PROCEDURE (01/31/2022 1:49 PM EDT) Anatomical Region Laterality Modality Other Narrative 01/31/2022 2:09 PM EDT [facility] CARDIAC ELECTROPHYSIOLOGY LABORATORY CARDIAC DEVICE OPERATIVE NOTE PATIENT: Ethel Akins DATE OF OPERATION: 01/31/2022 SLIME PLANT OPERATOR (Injection Press Operator): JAY URBAN MD, PhD COMPOSITION FLOOR LAYER: Anali Dominguez MD REFERRING MACHINE SETTER AND REPAIRER: Niru Harrison MD PRE-PROCEDURE DIAGNOSIS/INDICATION(S): 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 Implantation of a permanent transvenous dual chamber pacemaker system ANESTHESIA: local and monitored anesthesia care INTRAVENOUS CONTRAST: 10 mL Omnipaque FLUOROSCOPY TIME & DOSE: 13.2 minutes, 119 Gycm2 ESTIMATED BLOOD LOSS: 15 mL COMPLICATIONS: none immediate IMPLANTED HARDWARE and FINAL LEAD PARAMETERS: Pulse generator: ? 1. [employer] Geneva XT DR MRI Model #W1DR01, Serial # [id number] Atrial lead ?? 1. Medtronic CapsureFix Model# 5076-45 cm Serial# [id number] ? ? Bipolar, steroid-tipped, active-fixation IS-1 lead ? ? Access: ? Right Axillary vein ? ? Location ? Right atrial appendage ? ? F wave, pacemaker: ?? 0.6 mV ? ? Pacing threshold, pacemaker: N/A (pt in atrial flutter) ? ? Impedance, pacemaker: ??437 Ohms ? ? Diaphragmatic Stim. @ 8V: ??No Ventricular electrode: ?? Medtronic CapsureFix Model# 5076-52 cm Serial# [id number] ? ? Bipolar, steroid-tipped, active-fixation IS-1 lead [...] guidance using modified ??Seldinger micropuncture technique. A [place] ??wire was advanced to the right atrium under fluoroscopic guidance. 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 The patient's spouse aMra was updated immediately following the procedure. Recommend no systemic anticoagulation x 72 hours minimum. Electronically signed by: Jay Urban MD, PhD, [facility] Procedure Note Jay Urban MD - 01/31/2022 [facility] CARDIAC ELECTROPHYSIOLOGY LABORATORY CARDIAC DEVICE OPERATIVE NOTE PATIENT: Ethel Akins DATE OF OPERATION: 01/31/2022 SLIME PLANT OPERATOR (Injection Press Operator): JAY URBAN MD, PhD COMPOSITION FLOOR LAYER: Anali Dominguez MD REFERRING MACHINE SETTER AND REPAIRER: Niru Harrison MD PRE-PROCEDURE DIAGNOSIS/INDICATION(S): paroxysmal atrialfibrillation/flutter [...] XT DR MRI Model #W1DR01, Serial # [id number] Atrial lead 1. Medtronic CapsureFix Model# 5076-45 cm Serial# [id number] ? ? Bipolar, steroid-tipped, active-fixation IS-1 lead ? ? Access: Right Axillary vein ? ? Location Right atrial appendage ? ? F wave, pacemaker: 0.6 mV ? ? Pacing threshold, pacemaker: N/A (pt in atrial flutter) ? ? Impedance, pacemaker: 437 Ohms ? ? Diaphragmatic Stim. @ 8V: No Ventricular electrode: Medtronic CapsureFix Model# 5076-52 cm Serial# [id number] ? ? Bipolar, steroid-tipped, active-fixation IS-1 lead [...] fluoroscopic guidance usingmodified Seldinger micropuncture technique. A [place] wire was advanced tothe right atrium under fluoroscopic guidance. Over the guide wire, a 9-Northern Irish long peel-away Safe-sheath was insertedinto the vein. 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 The patient's spouse Mara was updated immediately following theprocedure. Recommend no systemic anticoagulation x 72 hours minimum. Electronically signed by: Jay Urban MD, PhD, FACC Jay Urban MD EP PROCEDURE ORDERAB LES * POCT Glucose (01/31/2022 11:00 AM EDT) Glucose, POC 130 65 - 199 mg/dL [facility] Comment: Supplemental ranges: <140 mg/dL before meals <180 mg/dL all other times of the day Blood 01/31/2022 11:0 0 AM EDT 01/31/2022 11:00 AM EDT Misael Ellis MD POINT OF CARE TEST O RDERABG [facility] [place] [address] * ECHO COMPLETE (01/31/2022 8:29 AM EDT) EF 46 HEARTLAB SYSTEM Anatomical Region Laterality Modality Cardiac Other 01/31/2022 7:24 AM EDT Narrative 01/31/2022 9:05 AM EDT ? Echocardiogram Report Name: ETHEL AKINS Patricia ?Study Date: 01/31/2022 07:24 AMBP: 118/95 mmHg ? Patient Location: [facility] C453 A : 1950 ? Height: 180 cm ? Account: [id number] Age: 71 yrs ? Weight: 100 kg Gender: Male ?BSA: 2.2 m2 Ordering Physician: NIRU HARRISON Referring Physician: NICOLÁS REAGAN Performed By: Monster Abraham RDCS Reason For Study: Arrhythmia Exam Location: [facility]. Interpretation Summary Left ventricle is of normal [...] function, the estimated PASP has increased. Procedure Complete-29416. Satisfactory quality. The rhythm is atrial fibrillation. [...] Date: 207:24 AMBP: 118/95 mmHg Patient Location: [address] : 1950 Height: 180 cm Account: [id number] Age: 71 yrs Weight: 100 kg Gender: Male BSA: 2.2 m2 Ordering Physician: NIRU HARRISON Referring Physician: NICOLÁS REAGAN Performed By: Monster Abraham RDCS Reason For Study: Arrhythmia Exam Location: [facility]. Interpretation Summary Left ventricle is of normal [...] systolic function, the estimated PASP hasincreased. Procedure Complete-45257. Satisfactory quality. The rhythm is atrial fibrillation. [...] EDT) Phosphorus 2.7 2.5 - 4.5 mg/dL [facility] Blood 01/31/2022 8:16 AM EDT 01/31/2022 8:38 AM EDT Narrative Resulting Agency Comment Spec In Lab Misael Ellis MD CHEMISTRY ORDERABLES Performing Organization Address [facility] Co de Phone Number [facility] [place] [address] * Magnesium (01/31/2022 8:16 AM EDT) Magnesium 0.82 0.69 - 1.07 mmol/L [facility] Blood 01/31/2022 8:16 AM EDT 01/31/2022 8:38 AM EDT Narrative Resulting Agency Comment Spec In Lab Misael Ellis MD CHEMISTRY ORDERABLES Performing Organization Address [facility] Co de Phone Number [facility] [place] [address] * (ABNORMAL) Basic Metabolic Panel (non-fasting) (01/31/2022 8:16 AM EDT) Glucose 137 65 - 199 mg/dL [facility] Comment:Diabetes: >=200 mg/d L plus symptoms Blood Urea Nitrogen 22(H) 10 - 20 mg/dL [facility] Creatinine 1.58(H) 0.80 - 1.50 mg/dL [facility] Sodium 143 135 - 145 mmol/L [facility] [...] questions. Chloride 108(H) 98 - 107 mmol/L [facility] Carbon Dioxide 24 22 - 31 mmol/L [facility] Anion Gap 11 5 - 15 mmol/L [facility] Calcium 8.9 8.5 - 10.5 mg/dL [facility] Est Glomerular Filtration Rate 46(L) >=60 mL/min/1. 73 m?? [facility] Comment: This patient's estimated GFR [...] [facility]ZIP Co de Phone Number [facility] [place] [address] * Tacrolimus level (01/31/2022 8:16 AM EDT) Tacrolimus 8.0 ng/mL [facility] Comment: Trough therapeutic range is [...] [facility]ZIP Co de Phone Number [facility] [place] [address] * POCT Glucose (01/31/2022 8:07 AM EDT) Glucose, POC 137 65 - 199 mg/dL [facility] Comment: Supplemental ranges: <140 mg/dL before meals <180 mg/dL all other times of the day Blood 01/31/2022 8:07 AM EDT 01/31/2022 8:07 AM EDT Misael Ellis MD POINT OF CARE TEST O RDERABLES Performing Organization Address [facility] de Phone Number [facility] [place] [address] * (ABNORMAL) Urinalysis Microscopic Exam (01/31/2022 1:30 AM EDT) RBC, Urine 4(H) 0 - 3 /HPF [facility] WBC, Urine 1 0 - 3 /HPF [facility] Squamous Epithelial Cells Raw Data, Urine 1 <=4 /HPF [facility] Hyaline Casts, Urine 2 0 - 2 /LPF [facility] Clean Catch Urine 01/31/2022 1:30 AM EDT 01/31/2022 1:42 AM EDT Narrative Resulting Agency Comment Spec In Lab Les Garcia MD URINE ORDERABL ES Performing Organization Address [facility] de Phone Number [facility] [place] [address] * Sodium, urine, random (01/31/2022 1:30 AM EDT) Sodium, Urine <20 mmol/L [facility] Urine 01/31/2022 1:30 AM EDT 01/31/2022 1:41 AM EDT Narrative Resulting Agency Comment Spec In Lab Misael Ellis MD URINE ORDERABLES Performing Organization Address [facility] Co de Phone Number [facility] [place] [address] * Creatinine, urine, random (01/31/2022 1:30 AM EDT) Creatinine, Urine 173 mg/dL [facility] Urine 01/31/2022 1:30 AM EDT 01/31/2022 1:41 AM EDT Narrative Resulting Agency Comment Spec In Lab Misael Ellis MD URINE ORDERABLES [facility] [place] [address] * (ABNORMAL) Urinalysis with reflex Culture (01/31/2022 [...] [facility] pH, Urn (dipstick) 5.5 5.0 - 8.0 [facility] Blood, Urine Dipstick Negative Negative mg/dL [facility] Ketone, Urine Dipstick Trace(A) Negative mg/dL [facility] Nitrite, Urine Dipstick Negative Negative [facility] Leukocytes, Urine Dipstick Negative Negative [facility] Appearance, Urine Dipstick Clear Clear [facility] Specific [place] Urine Automated 1.021 1.005 - 1.030 [facility] Color, Urine Dipstick Yellow Yellow [facility] Reflex to Culture No [facility] Clean Catch Urine 01/31/2022 1:30 AM EDT 01/31/2022 1:42 AM EDT Narrative Resulting Agency Comment Spec In Lab Misael Ellis MD URINE ORDERABLES Performing Organization Address City/[facility]/ZIP Co de Phone Number [facility] [place] [address] * POCT Glucose (01/31/2022 12:06 AM EDT) Glucose, POC 116 65 - 199 mg/dL [facility] Comment: Supplemental ranges: <140 mg/dL before meals <180 mg/dL all other times of the day Blood 01/31/2022 12:0 6 AM EDT 01/31/2022 12:06 AM EDT Misael Ellis MD POINT OF CARE TEST O RDERABLES Performing Organization Address [facility] Co de Phone Number [facility] [place] [address] * (ABNORMAL) Hemoglobin A1c (01/30/2022 9:45 PM EDT) Hemoglobin A1c 6.7(H) 4.3 - 5.6 % [facility] Comment: Reference Range: 4.3 - [...] Mellitus, Diabetes Care 2013; 36: Suppl. 1, S67-26 Estimated Average Glucose See note mg/dL [facility] Comment: Estimated Average Glucose not [...] into estimated average glucose values. ??Diabetes Care 2008:31(8):9619-4595. Blood Venous Draw / Unknown 01/30/2022 9:45 PM EDT 01/30/2022 11:41 PM EDT Narrative Resulting Agency Comment Spec In Lab Les Garcia MD CHEMISTRY ROCHELLE JENNINGS Performing Organization Address City/State/[facility] Co de Phone Number [facility] [place] [address] * (ABNORMAL) Differential, Automated (01/30/2022 9:45 PM EDT) Neutrophil % 63.5 % [facility] Neutrophil Absolute 5.52 1.70 - 6.10 x10(3)/mc L [facility] Lymph % 24.1 % [facility] Lymphocytes Abs 2.1 0.9 - 3.2 x10(3)/mc L [facility] Monocyte % 6.0 % [facility] Monocyte Abs 0.5 0.3 - 0.9 x10(3)/mc L [facility] Eos % 5.4 % [facility] Eosinophils Abs 0.5(H) 0.0 - 0.4 x10(3)/mc L [facility] Basophil % 0.8 % [facility] Baso Absolute 0.1 0.0 - 0.1 x10(3)/[facility] Immature Gran % 0.20 % [facility] Comment: Immature granulocytes(IG's)percentage and absolute count will include metamyelocytes, myelocytes, and promyelocytes. Blood smears from CBCs yielding IG's will be scanned manually for concordance. If this scan disagrees with the automated IG or if promyelocytes are noted, a manual differential will be performed. Immature Gran Absolute 0.02 0.00 - 0.04 x10(3)/[facility] Blood 01/30/2022 9:45 PM EDT 01/30/2022 9:45 PM EDT Narrative Resulting Agency Comment Spec In Lab Les Garcia MD HEMATOLOGY ORD ERABLES Performing Organization Address City/State/[facility] Co de Phone Number [facility] [place] [address] * Hemogram (01/30/2022 9:45 PM EDT) White Blood Cell 8.7 4.0 - 9.5 x10(3)/[facility] Red Blood Cell 4.62 4.58 - 5.54 x10(6)/[facility] Hemoglobin 14.3 13.7 - 16.5 g/dL [facility] Hematocrit 41.7 40.5 - 48.5 % [facility] Mean Cell Volume 90.3 82.9 - 93.1 fL [facility] Mean Cell Hemoglobin 31.0 27.5 - 32.1 pg [facility] Mean Cell Hemoglobin Concentration 34.3 32.0 - 35.7 g/dL [facility] Platelet 219 145 - 357 x10(3)/[facility] RDW Standard Deviation 42.4 36.0 - 45.0 fL [facility] RDW coefficient of variation 13.0 11.4 - 13.8 % [facility] Mean Platelet Volume 9.8 7.6 - 12.9 [facility] NRBC% auto 0.0 % [facility] NRBC Absolute 0.000 0.000 - 0.000 x10(3)/mcL [facility] Blood 01/30/2022 9:45 PM EDT 01/30/2022 9:45 PM EDT Narrative Resulting Agency Comment Spec In Lab Les Garcia MD HEMATOLOGY ORD ERABLES [facility] [place] [address] * Lipid Panel (Reflex Direct LDL) (01/30/2022 9:45 PM EDT) Cholesterol, Total 65 mg/dL [facility] Comment: Lower Risk: <200 mg/dL Average Risk: 200-239 mg/dL Higher Risk: >rr=039 mg/dL Triglyceride 124 mg/dL [facility] Comment: Average Risk/Lower Risk: <150 mg/dL Borderline High Risk: 150-199 mg/dL High Risk: 200-499 mg/dL Very High Risk: >hx=120 mg/dL HDL Cholesterol 33 mg/dL [facility] Comment: Males: ?? Higher Risk: <40 mg/dL Females: ?? Higher Risk: <50 mg/dL LDL Cholesterol 7 mg/dL [facility] Comment: Lowest Risk: <100 mg/dL Lower Risk: 100-129 mg/dL Borderline High Risk: 130-159 mg/dL High Risk: 160-189 mg/dL Very High Risk: >xu=249 mg/dL Cholesterol/HDL Ratio 2.0 ratio [facility] Lipid Interpretation See Note [facility] Comment: Lipid management should be guided by a patient? s ASCVD risk, goals and preferences. ACC/AHA Guidelines recommend high intensity statin if clinical ASCVD or LDL greater than or equal to 190 mg/dL. http://[employer].com/VBU-ZUI-Jomlyqwgp Adults aged 40-75 with LDL 70-189 mg/dL should have their 10 year ASCVD risk estimated with the ACC/AHA ASCVD risk pharmacy technician inpatient http://tools.acc.org/KGRIU-Cnfm-Mdvfrpene/ Statin should be discussed if risk greater [...] Harrison MD CHEMISTRY ORDERABLES Performing Organization Address [facility] Co de Phone Number [facility] [place] [address] * (ABNORMAL) APTT (01/30/2022 9:45 PM EDT) Partial Thromboplastin Time 20(L) 25 - 37 sec [facility] Comment: Decreased clotting times may [...] HEMATOLOGY ORDERABLE S Performing Organization Address [facility] Co de Phone Number [facility] [place] [address] * (ABNORMAL) Prothrombin Time (01/30/2022 9:45 PM EDT) Prothrombin Time 12.9(H) 9.4 - 12.5 sec [facility] International Normalization Ratio 1.1 [facility] Comment: An [...] HEMATOLOGY ORDERABLE S Performing Organization Address [facility] Co de Phone Number [facility] [place] [address] * (ABNORMAL) Hepatic Function Panel (01/30/2022 9:45 PM EDT) Protein, Total 6.2 6.1 - 8.0 g/dL [facility] Albumin 3.8 3.2 - 5.2 g/dL [facility] Aspartate Aminotransferase 17 0 - 39 unit/L [facility] Alanine Aminotransferase 19 0 - 55 unit/L [facility] Alkaline Phosphatase 61 40 - 130 unit/L [facility] Bilirubin, Total 2.4(H) 0.2 - 1.3 mg/dL [facility] Bilirubin, Direct 0.2 0.0 - 0.3 mg/dL [facility] Blood 01/30/2022 9:45 PM EDT 01/30/2022 9:45 PM EDT Narrative Resulting Agency Comment Spec In Lab Niru Harrison MD CHEMISTRY ORDERABLES Performing Organization Address [facility]/ZIP Co de Phone Number [facility] [place] [address] * (ABNORMAL) pro-Brain Natriuretic Peptide (01/30/2022 9:45 PM EDT) NT-proBNP 4,113(H) <=124 pg/mL [facility] Blood 01/30/2022 9:45 PM EDT 01/30/2022 9:45 PM EDT Narrative Resulting Agency Comment Spec In Lab Niru Harrison MD CHEMISTRY ORDERABLES Performing Organization Address City/[facility]/ZIP Co de Phone Number [facility] [place] [address] * TSH (01/30/2022 9:45 PM EDT) Thyroid Stimulating Hormone 3.44 0.27 - 4.20 mcIU/mL [facility] Comment: Reference Interval (mcIU/mL): Females: ??First Trimester: 0.23-3.88 ??Second Trimester: 0.22-3.90 ??Third Trimester: 0.44-4.66 Blood 01/30/2022 9:45 PM EDT 01/30/2022 9:45 PM EDT Narrative Resulting Agency Comment Spec In Lab Niru Harrison MD CHEMISTRY ORDERABLES Performing Organization Address [facility] Co de Phone Number [facility] [place] [address] * Phosphorus (01/30/2022 9:45 PM EDT) Phosphorus 3.3 2.5 - 4.5 mg/dL [facility] Blood 01/30/2022 9:45 PM EDT 01/30/2022 9:45 PM EDT Narrative Resulting Agency Comment Spec In Lab Niru Harrison MD CHEMISTRY ORDERABLES Performing Organization Address [facility] Co de Phone Number [facility] [place] [address] * (ABNORMAL) Magnesium (01/30/2022 9:45 PM EDT) Magnesium 0.68(L) 0.69 - 1.07 mmol/L [facility] Blood 01/30/2022 9:45 PM EDT 01/30/2022 9:45 PM EDT Narrative Resulting Agency Comment Spec In Lab Niru Harrison MD CHEMISTRY ORDERABLES [facility] [place] [address] * (ABNORMAL) Basic Metabolic Panel (non-fasting) (01/30/2022 9:45 PM EDT) Glucose 177 65 - 199 mg/dL [facility] Comment:Diabetes: >=200 mg/d L plus symptoms Blood Urea Nitrogen 23(H) 10 - 20 mg/dL [facility] Creatinine 1.87(H) 0.80 - 1.50 mg/dL [facility] Sodium 144 135 - 145 mmol/L [facility] Potassium 3.6 3.5 - 5.0 mmol/L [facility] Comment: Please note: ??Patients with WBC >100,000 may have falsely elevated Potassium levels. ??For accurate Potassium quantification in these patients send serum separator tube (gold top) for subsequent determinations. ??Contact the Clinical Chemistry Laboratory if there are any questions. Chloride 106 98 - 107 mmol/L [facility] Carbon Dioxide 23 22 - 31 mmol/L [facility] Anion Gap 15 5 - 15 mmol/L [facility] Calcium 9.0 8.5 - 10.5 mg/dL [facility] Est Glomerular Filtration Rate 37(L) >=60 mL/min/1. 73 m?? [facility] Comment: This patient's estimated GFR [...] [facility]ZIP Co de Phone Number [facility] [place] [address] * EKG 12 Lead (01/30/2022 7:53 PM EDT) Ventricular rate 95 BPM MUSE SYSTEM Atrial Rate 277 BPM MUSE SYSTEM QRS Duration 108 ms MUSE SYSTEM Q-T Interval 398 ms MUSE SYSTEM QTC Calculated (Bezet) 500 ms MUSE SYSTEM Calculated R [place] -58 degrees MUSE SYSTEM Calculated T [place] 72 degrees MUSE SYSTEM INTERPRETATION Atrial flutter [...] has lengthened Confirmed by MD Kelly Danette ([id number]) on 01/31/2022 4:01:28 PM MUSE SYSTEM 01/30/2022 7:53 PM EDT 01/31/2022 4:01 PM EDT Niru Harrison MD ECG ORDERABLES Performing Organization Address City/[facility]/ZIP Co de Phone Number MUSE SYSTEM documented [...] to induce or maintain moderate sedation per [facility] Moderate Sedation Policy for the duration of the EP procedure., As needed to induce or maintain moderate sedation per [facility] Moderate Sedation Policy for the duration of [...] to induce or maintain moderate sedation per [facility] Moderate Sedation Policy for the duration of the EP procedure., As needed to induce or maintain moderate sedation per [facility] Moderate Sedation Policy for the duration of [...] Routine 0841 (Given - Provider: Roseanna Moss, JADEN)1117 ([facility] Hold - Provider: Admin Adt - Reason: Transfer to a Procedural area)1403 ([facility] Unhold - Provider: Admin Adt) 0836 (Given - Provider: Richard Lobo, JADEN) aspirin EC tablet 81 mg 81 mg, Oral, DAILY, First dose (after last modification) on Thu01/30/22 at 204, Until Discontinued, Routine 2104 (Given - Provider: Carmela Alicia, JADEN) 0841 (Given - Provider: Roseanna Moss, JADEN)1117 ([facility] Hold - Provider: Admin Adt - Reason: Transfer to a Procedural area)1403 ([facility] Unhold - Provider: Admin Adt) 0836 (Given - Provider: Richard Lobo, JADEN) atorvastatin (Lipitor) tablet 40 mg 40 mg, Oral, EVERY EVENING, First dose on Thu01/30/22 at 2030, Until Discontinued, Routine 2058 (Given - Provider: Carmela Alicia, JADEN) 1117 ([facility] Hold - Provider: Admin Adt - Reason: Transfer to a Procedural area)1403 ([facility] Unhold - Provider: Admin Adt)1702 (Given - [...] 0503 (Given - Provider: Carmela Alicia RN)1117 ([facility] Hold - Provider: Admin Adt - Reason: Transfer to a Procedural area)1403 ([facility] Unhold - Provider: Admin Adt) 0557 (Given [...] (Given - Provider: Carmela Alicia RN) 1117 ([facility] Hold - Provider: Admin Adt - Reason: Transfer to a Procedural area)1403 ([facility] Unhold - Provider: Admin Adt)2052 (Given - Provider: Sreedhar Arambula RN) tacrolimus (Prograf) capsule 2 mg 2 mg, Oral, DAILY, First dose on Thu01/31/22 at 0900, Until Discontinued, DO NOT SPLIT, CRUSH OR OPEN, Routine 0840 (Given - Provider: Roseanna Moss RN)111 ([facility] Hold - Provider: Admin Adt - Reason: Transfer to a Procedural area)1403 ([facility] Unhold - Provider: Admin Adt) 0836 (Given - Provider: Richard Lobo RN) tamsulosin (Flomax) capsule 0.4 mg 0.4 mg, Oral, DAILY, First dose on Thu01/31/22 at 0900, Until Discontinued, DO NOT CRUSH OR OPEN, Routine 0841 (Given - Provider: Roseanna Moss RN)111 ([facility] Hold - Provider: Admin Adt - Reason: Transfer to a Procedural area)1403 ([facility] Unhold - Provider: Admin Adt) 0836 (Given [...] Unit), Routine 1702 (Given - Provider: Roseanna Msos, JADEN)2349 (Given - Provider: Sreedhar Arambula, RN) 0556 (Given - Provider: Sreedhar Arambula, JADEN)1316 (Given - Provider: Richard Lobo, JADEN) dextrose [...] to induce or maintain moderate sedation per [facility] Moderate Sedation Policy for the duration of the EP procedure., As needed to induce or maintain moderate sedation per [facility] Moderate Sedation Policy for the duration of [...] Steffen Mora RN)1204 (Given - Provider: Steffen Mora, RN)1216 (Given - Provider: Steffen Mora, JADEN)1222 (Given - Provider: Steffen Mora, JADEN)1241 (Given - Provider: Steffen Mora RN) glucagon [...] to induce or maintain moderate sedation per [facility] [facility] Moderate Sedation Policy for the duration of the EP procedure., As needed to induce or maintain moderate sedation per [facility] Moderate Sedation Policy for the duration of [...] Steffen Mora RN)1222 (Given - Provider: Steffen P Monmaney, RN)1241 (Given - Provider: Steffen Mora RN) [...] - Reason: Transfer to a Procedural area)1403 ([facility] Unhold - Provider: Admin Adt) sodium chloride 0.9 % (flush) (BD PosiFlush Normal Saline 0.9) flush 5-20 mL 5-20 mL, Intravenous, EVERY 1 MIN PRN, Starting on Laura 01/30/22 at 1938, Until 02/01/22 at 1812, flush, Flush pertains to all indwelling lines. Flush per protocol found in the job aid using the link provided on this medication record., Routine 1117 ([facility] Hold - Provider: Admin Adt - Reason: Transfer to a Procedural area)1403 ([facility] Unhold - Provider: Admin Adt) sodium chloride [...] mMol/L. documented in this encounter Care Teams Quality Process Engineer Relationship Specialty Start Date End Date Urbano Denis DO [address] [place] [address] PCP - General 09/03/12 03/17/22 Ruchi Valles RN Nurse Clinic Transplant Surgery 07/30/15 documented as of this encounter
--- OUTSIDE RECORDS SUMMARY | 2024-05-16 17:19 | XMS_ITS | Encounter Summary ---
Author Organization [facility]ly [facility] [place] [address] Care Team Providers Care Admin Asst Name Role Phone Urbano Denis DO Primary Care Provider Encounter Details Date Type Department Care Team (Late Contact Info) Description 01/20/2022 Notes Only [place] [address] Anabella Bright Social History Tobacco Use Types [...] and Mycophenolate Insurance: [employer] Medicare Advantage Phone: Criminal Profiler: [employer] Reference #: Tacrolimus [id number] and Mycophenolate [id number] Outcome: Approved under part B side of benefit - this plan manages both part B and D, therefore letter indicates denied under part D BUT approved under B. documented in this encounter Plan of Treatment Upcoming Encounters Date Type Department Care Team (Late Contact Info) Description 06/22/2024 11:00 AM EST TH Visit (TeleHealth) Cardiology at [address] [phone] Byron Brown MD [facility] [place] [address] 07/14/2024 10:00 AM EST Hospital Encounter Non[place] [phone] Arrived documented as of this encounter Goals [...] on filedocumented in this encounter Care Teams Admin Asst Relationship Specialty Start Date End Date Urbano Denis DO [address] [place] [address] PCP - General 09/03/12 03/17/22 Ruchi Valles RN Nurse Clinic Transplant Surgery 07/30/15 documented as of this encounter
--- OUTSIDE RECORDS SUMMARY | 2024-05-16 17:19 | XMS_ITS | Encounter Summary ---
Author Organization On License Of [facility] [address] Care Team Providers Care Carpenter Foreman Name Role Phone Urbano Denis DO Primary Care Provider + [phone] Reason for Referral * Consultation (Routine) - Closed Specialty Diagnoses / Procedures Referred By Contact Referred To Contact Electrophysiology / Cardiology Diagnoses Tachy-sakina syndrome Tachy-sakina syndrome Leela Acosta MD [facility] [place] [address] [facility] [address] [place] [phone] Referral ID Status Reason Start Date Expiration Date V isits Requested Visits Authorized [id number] Closed Consult, Test & Treat 02/04/2022 02/04/2023 1 1 Encounter Details Date Type Department Care Team (Late st Contact Info) Description 02/04/2022 Orders [place] [phone] Leela Acosta MD [facility] [place] [address] Tachy-sakina syndrome (Primary Dx) Social History Tobacco [...] AM EST TH Visit (TeleHealth) Cardiology at [address] [phone] Byron Brown MD [facility] [place] [address] 07/14/2024 10:00 AM EST Hospital Encounter Non-[place] [phone] Arrived Scheduled Referrals Name Type Priority Associated Diagnoses Order Schedule Referral to Cardiac Electrophysiology Outpatient Referral Routine Tachy-sakina syndrome Ordered: 02/04/2022 documented as of this encounter Goals Goal Patient Goal Type Associated Problems Recent Progress Patient-Stated? Author [facility] Medication Compliance and Understanding Patient Facing Action Plan On track( 017 10:41 AM EDT) Selena Scott, [facility] Note: Patient Goal: Clear hepatitis C Timeframe to meet goal: within 12 weeks of therapy documented as of this encounter Visit Diagnoses Diagnosis Tachy-sakina syndrome- Primary Sinoatrial node dysfunction documented in this encounter Care Teams Carpenter Foreman Relationship Specialty Start Date End Date Urbano Denis DO [address] [place] [address] PCP - General 09/03/12 03/17/22 Ruchi Valles RN Nurse Clinic Transplant Surgery 07/30/15 documented as of this encounter
--- OUTSIDE RECORDS SUMMARY | 2024-05-16 17:19 | XMS_ITS | Encounter Summary ---
Author Organization Formerly [facility] Address [facility] [place] [address] Care Team Providers Care Health Care Coach Name Role Phone Adeel Urbano KIRBY Primary Care Provider + [phone] Encounter Details Date Type Department Care Team (Late st Contact Info) Description 01/30/2022 Telephone Cardiology at [address] [phone] Sandra Aleman PA [facility] [place] [address] Social History Tobacco Use Types Packs/Day Years [...] PM Referring Provider: Rosetta SEN Patient Location: [facility] Past Medical History: Coronary artery disease status [...] management. Sandra Aleman PA-C Cardiovascular Medicine Pager [phone] 01/30/2022 documented in this encounter Plan of Treatment Upcoming Encounters Date Type Department Care Team (Late st Contact Info) Description 06/22/2024 11:00 AM EST Visit (TeleHealth) Cardiology at [address] [phone] Byron Brown MD [facility] [place] [place] [address] 07/14/2024 10:00 AM EST Hospital Encounter Non-[place] [address] Arrived documented as of this encounter Goals [...] in this encounter Care Teams Health Care Coach Relationship Specialty Start Date End Date Urbano Denis DO [address] [place], [place] [address]Y [facility] [address] [place] [address] PCP - General 09/03/12 03/17/22 Ruchi Valles RN Nurse Clinic Transplant Surgery 07/30/15 documented as of this encounter
--- OUTSIDE RECORDS SUMMARY | 2024-05-16 17:19 | XMS_ITS | Encounter Summary ---
Author Organization [facility] [place] [address] Care Team Providers Care Endo Tech Name Role Phone Urbano Denis DO Primary Care Provider + [phone] Reason for Visit * Auth/Cert Specialty Diagnoses / Procedures Referred By Humberto flor Referred To Contact Diagnoses Tachy-roman syndrome Tachy-Roman Syndrome Procedures emerg ipi Niru Harrison MD [facility] [place] [address] [facility] Referral ID Status Reason Start Date Expiration Date Visits Re quested Visits Authorized [id number] 1 1 Encounter Details Date Type Department Care Team (Latest Contact Info) Description 01/30/2022 6:01 PM EDT - 02/01/2022 4:11 PM EDT Hospital Encounter [place] [address] Misael Ellis MD [facility] [place] [address] Niru Harrison MD [facility] [place] [address] Atrial fibrillation with RVR - had flutter [...] Ethel Akins Patient Age: 71 y.o. Language: Sri Lankan Race: White Ethnicity: Not nor Admit date: 01/30/2022 Discharge date and time: 02/01/2022 Attending Physician: Misael Ellis MD Discharge Physician: Misael Ellis MD ?? I have seen and examined this patient and discussed with the management internship, resident, fellow. ??I agree with the plan noted ?? This is a 71 year old gentleman, followed by cardiology [place] [facility] [place] Michael Brown). 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 ??2019 he underwent PCI, also history of basal ganglia bleed. ??Now with atrial fibrillation. He underwent pacemaker implantation (see details below). Note that we did not anticoagulate him as he has history of basal ganglia bleed. His YAJJS0VIUN score is high and I have reached out to his steamer blocker (Dr. Michael Brown) to have him follow up (attempt at cheondoism of sinus, benefits:risks foranticoagulation, consideration of Watchman Device). Niru Harrison MD, Karen, [facility] Attending Scenario Writer ID: Ethel Akins is a 71 y.o. [...] DO [address] [place] [address] / [facility] [place] [address] Pending Studies and Lab Data: none Discharge [...] D deficiency ??? 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 [...] s/p renal transplant in 2016, also with yda-xtyevmj-bprsopuyp diabetesmellitus, who presents with 3 weeks of [...] after that. This morning he presented to [facility] with frequent e pisodes of lightheadedness, as well as dyspnea on exertion, and was found to be in A. fib with intermittent bradycardia into the 20s. [facility] cardiology was consulted for transfer for pacemaker [...] place for about 24 hours. ?? At [facility] labs were notable for WBC 10.3, hemoglobin [...] Mr. Akins presented as a transfer from [facility] due to symptomatic pauses in [...] therapeutic range. 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 Procedures: [...] the hospital. PCP: Urbano Denis DO @ [phone] General Instructions - BEGIN EP DISCHARGE INSTRUCTIONS - FINAL PACEMAKER RECOMMENDATIONS: 1. Standard post implant discharge instructions (see below): 2. Medications as listed above. 3. You may use ice packs over the incision. Make sure to use a mica plate layer (such as a towel) in between the [...] F. The office scheduling phone number is [phone]. ARM MOVEMENT RESTRICTIONS POST-IMPLANT - Do not [...] product, please call the device clinic at [phone]. - END EP DISCHARGE INSTRUCTIONS - Future Appointments and Orders Future Appointments and Orders Future Appointments Provider Department Dept Phone 02/05/2022 11:00 AM Byron Brown MD Cardiology at [facility] Arrive at: Obgyn Nurse Area [phone] 02/12/2022 11:00 AM Elisha Amaya RN Cardiology at [facility] Arrive at: [facility] [phone] 04/04/2022 1:30 PM Mayco Barnes PA Cardiology at [facility] Arrive at: [facility] [phone] 05/05/2022 1:30 PM Elisha Amaya RN Cardiology at [facility] Arrive at: Obgyn Nurse Area [phone] Primary Team Inpatient Physicians at [facility] was: Attending Physician(s): Niru Harrison MD Fellow: Que Raygoza MD Resident(s): Kayy Acosta MD Inpatient Provider Contact Information: If you have questions about this document please contact the [facility] sweater operator at and ask for one of [...] the incision. Make sure to use a mica plate layer (such as a towel) in between the [...] F. The office scheduling phone number is [phone]. ARM MOVEMENT RESTRICTIONS POST-IMPLANT - Do not [...] product, please call the device clinic at [phone]. - END EP DISCHARGE INSTRUCTIONS - * [...] the hospital. PCP: Urbano Denis DO @ [phone] documented in this encounter Medications at Time [...] and device interrogation done this morning by EP. R incision remains CDI. AVS reviewed with pt and [...] Mr. Akins is referred to his primary steamer blocker ,Dr. Brown and his neurologist, Dr. Rebolledo regarding this issue. Post implant arm restrictions discussed. Follow up at [facility] device clinic. Nikolas Loving MD S Cardiac Electrophysiology 02/01/2022 9:44 AM * Nikolas Loving MD - 02/01/2022 9:17 AM EDT Cardiac Electrophysiology Post-Implant Device Assessment/Rounding Note Ethel Akins [id number] 02/01/2022 History: Ethel Akins is a 71 [...] FINAL LEAD PARAMETERS: Pulse generator: ? 1. [employer] XT DR MRI Model #W1DR01, Serial # [id number] Atrial lead ?? 1. Medtronic CapsureFix Model# 5076-45 cm Serial# [id number] ??? Bipolar, steroid-tipped, active-fixation IS-1 lead ??? Access: ? Right Axillary vein ??? Location ? Right atrial appendage ??? F wave, pacemaker: ?? 0.6 mV ??? Pacing threshold, pacemaker: N/A (pt in atrial flutter) ??? Impedance, pacemaker: ??437 Ohms ??? Diaphragmatic Stim. @ 8V: ??No Ventricular electrode: ?? Medtronic CapsureFix Model# 5076-52 cm Serial# [id number] ??? Bipolar, steroid-tipped, active-fixation IS-1 lead ??? Access: ? Right Axillary vein ??? Location: ?Right ventricular apical septum ??? R wave, pacemaker: ?11.1 mV ??? Pacing threshold, pacemaker: 0.5 V at 0.4 ms ??? Impedance, pacemaker: ??607 ohms ??? Diaphragmatic Stim. @ 8V : No Diagnostics Pacing Mode: AAIR <==> DDDR 60/130/130 Presenting EGMs: -VS/-TALEND ETL DEVELOPER Underlying Rhythm: AFib 70-80's Atrial Episodes: 97.2% [...] post placement of right anterior chest wall dual-documentation lead. Impression: 71 y.o. male who is [...] 02/01/22. ? Dr. Nikolas Loving, electrophysiology attending ([id number]) * Niru Harrison MD - 02/01/2022 9:09 AM EDT Cardiology Day of Discharge Note ?? I have seen and examined this patient and discussed with the management internship, resident, fellow. ??I agree with the plan noted ?? This is a 71 year old gentleman, followed by cardiology at [facility] ([place] Michael Brown). 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 ??2019 he underwent PCI, also history of basal ganglia bleed. ??Now with atrial fibrillation. He underwent pacemaker implantation (see details below). Note that we did not anticoagulate him as he has history of basal ganglia bleed. His APADR2NMVU score is high and I have reached out to his steamer blocker (Dr. Michael Brown) to have him follow up (attempt at cheondoism of sinus, benefits:risks foranticoagulation, consideration of Watchman Device). ?? Niru Harrison MD, Karen, [facility] Cardiology Attending? Ethel Gomez [place] was seen [...] examined this patient and discussed with the management internship, resident, fellow. I agree withthe plan noted ?? This is a 71 year old gentleman, followed by cardiology at [facility] ([place] Michael Brown). He has history of renal transplant, previous tachy-cardia mediated cardiomyopathy but recovered LV systolic function. 2019 he underwent PCI, also history of basal ganglia bleed. Now with atrial fibrillation. He will be ev aluated for pacemaker implantation--question of tachy/roman syndrome. ?? Niru Harrison MD, Karen, [facility] Cardiology Attending ?? Patient Name: Ethel Akins [...] atrial fibrillation/ flutter previously on Eliquis but WV'ed due to hemorrhagic stroke, tachymyopathy with EF [...] examined this patient and discussed with the management internship, resident, fellow. I agree withthe plan noted This is a 71 year old gentleman, followed by cardiology at [facility] ([place] Michael Brown). He has history of renal transplant, previous tachy-cardia mediated cardiomyopathy but recovered LV systolic function. 2019 he underwent PCI, also history of basal ganglia bleed. Now with atrial fibrillation. He will be ev aluated for pacemaker implantation--question of tachy/roman syndrome. Niru Harrison MD, Karen, [facility] Cardiology Attending Patient Name: Ethel Akins Service: Cardiology Team Responsible Attending: MISAEL ELLIS MD PCP: Urbano Denis DO PCP phone #: [phone] ID/Chief Complaint: Lightheadedness Tachybradycardia syndrome History of Present Illness: Mr. 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 This morning he presented to [facility] with frequent e pisodes of lightheadedness, as well as dyspnea on exertion, and was found to be in A. fib with intermittent bradycardia into the 20s. [facility] cardiology was consulted for transfer for pacemaker [...] in place for about 24 hours. At [facility] labs were notable for WBC 10.3, hemoglobin [...] D deficiency ??? 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 [...] kg ABG No results for input(s): PHART, WZH9WYS, PO2ART, GDY7KVR in the last 168 hours. Examination: General [...] in the last 7068 hours. Invalid input(s): [id number] Heme: No results for input(s): LDH, HAPTOGLOBIN, URICACID in the last 168 hours. Microbiology: None Diagnostic Studies: No results found for this visit on 01/30/22. EKG here 01/30: Prior EKG at [facility] 01/10: CXR 01/30/22- MRI brain at [facility] 01/16/22: ASSESSMENT: Mr. Black is a 71M [...] block and frequent symptomatic pauses, transferred from [facility]. 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 Unclear trigger of his recurrent aflutter that was not detected on prior zioin 03/2021. No recent ischemic or infectious symptoms and exam today is benign. PLAN: Admit to Cardiology Team S1, Team Pager #[phone](S1) #Aflutter with variable block #symptomatic systolic pauses [...] MD Medicine, PGY-2 Cardiology Team S1, pager #[phone] 01/30/2022 documented in this encounter Miscellaneous Notes [...] the original note were not included. [facility] [place] [address] CARDIOLOGY ELECTROPHYSIOLOGY NOTE 01/31/22 Consult Reason: Lightheadedness in the setting of afib/aflutter tachy-orman syndrome and ESRD status HPI: Mr. Akins is a pleasant 71 yo M with hx of atypical aflutter/afib, HTN, tachy-roman syndrome, renal transplant who was transferred to [facility] on 01/30/22 for frequent episodes of lightheadedness. [...] night. He presented to the ED in [facility] three times over the past three [...] arrhythmia and still living, age 89 Father -[place] at age 62 Social Hx: T: smokes cigars E: has not had alcohol in years, no hx of heavy ETOH use D: no substance use [place] Retired. Allergy: + [place] No medication allergies No current facility-administered medications [...] 95, LAFB, qtc 500 EKG 01/30/22 at [facility]: afib, HR 76 TTE 01/31/22: LVEF [...] past three weeks. He was transferred to [facility] [place] EP evaluation. He has a hx of renal transplant in 2016 and developed an RAY with Cr up to 1.8s from 1.2 oneyear ago here. For this reason, optimizing his cardiac output with better rate control is needed to protect the transplanted kidney. He qualifies for a dual chamber pacemaker. PMO MANAGER was considered but this will not be [...] Gonzales. Attestation to follow. Anali Dominguez MD Analytics Architect, PGY4 Pager [phone] Addendum I personally interviewed and examined the patient, reviewed the available data. The above note reflects our thoughts and discussion. This 71-year-old man is transferred from [facility], for consideration of pacemaker therapy for [...] his paroxysmal to persistentatrial fibrillation, and elevated CJV0CU6-WRVr score, CVA protection should be considered. ERASMO GONZALES MD documented in this encounter Plan of Treatment Upcoming Encounters Date Type Department Care Team (Late st Contact Info) Description 06/22/2024 11:00 AM EST TH Visit (TeleHealth) Cardiology at [address] [address] Byron Brown MD [facility] [place] [address] 07/14/2024 10:00 AM EST Hospital Encounter Non-Invasive Cardiology Lab [facility] [place] [address] Arrived Scheduled Orders Name Type [...] Glucose, POC 120 65 - 199 mg/dL [facility] Comment: Supplemental ranges: <140 mg/dL before meals <180 mg/dL all other times of the day Blood 02/01/2022 1:13 PM EDT 02/01/2022 1:13 PM EDT Misael Ellis MD POINT OF CARE TEST O RDERABLES Performing Organization Address [facility] de Phone Number [facility] [place] [address] * (ABNORMAL) POCT Glucose (02/01/2022 11:21 AM EDT) Glucose, POC 254(H) 65 - 199 mg/dL [facility] Comment: Supplemental ranges: <140 mg/dL before meals <180 mg/dL all other times of the day Blood 02/01/2022 11:2 1 AM EDT 02/01/2022 11:21 AM EDT Misael Ellis MD POINT OF CARE TEST O DENNYSERABG Performing Organization Address [facility] de Phone Number [facility] [place] [address] * (ABNORMAL) POCT Glucose (02/01/2022 11:09 AM EDT) Glucose, POC 218(H) 65 - 199 mg/dL [facility] Comment: Supplemental ranges: <140 mg/dL before meals <180 mg/dL all other times of the day Blood 02/01/2022 11:0 9 AM EDT 02/01/2022 11:09 AM EDT Misael Ellis MD POINT OF CARE TEST O TED Performing Organization Address [facility] de Phone Number [facility] [place] [address] * XR Chest PA & Lateral (Generic) (02/01/2022 7:56 AM EDT) Anatomical Region Laterality Modality Chest N/A Digital Radiogra phy Impressions 02/01/2022 11:17 AM EDT No pneumothorax status post placement of right anterior chest wall dual-documentation lead. Thank you for letting us participate in the care of this patient. ??If you are a health care provider and have any questions regarding this report, please contact the number below. ??For patients who have questions please contact the health manager long term care that requested your imaging first. ? Electronically signed by: Kitty Valencia MD, [facility] ([phone]), at 02/01/2022 11:17 AM Narrative 02/01/2022 11:17 [...] status post placement of right anterior chest walldual-documentation lead. Thank you for letting us participate in the care of this patient. If youare a health care provider and have any questions regarding this report,please contact the number below. For patients who have questions please contactthe health manager long term care that requested your imaging first. Electronically signed by: Kitty Valencia MD, [facility]([phone]), at 02/01/2022 11:17 AM Jay Urban MD IMG DX ORDERABLES * POCT Glucose (02/01/2022 7:32 AM EDT) Pathologist [facility] Glucose, POC 133 65 - 199 mg/dL [facility] Comment: Supplemental ranges: <140 mg/dL before meals <180 mg/dL all other times of the day Blood 02/01/2022 7:32 AM EDT 02/01/2022 7:32 AM EDT Misael Ellis MD POINT OF CARE TEST O RDERABLES [facility] [place] [address] * Phosphorus (02/01/2022 3:29 AM EDT) [facility] Phosphorus 2.9 2.5 - 4.5 mg/dL [facility] Blood 02/01/2022 3:29 AM EDT 02/01/2022 3:43 AM EDT Narrative Resulting Agency Comment Spec In Lab Jay Urban MD CHEMISTRY ORDERABLES Performing Organization Address City/[facility]/ZIP Co de Phone Number [facility] [place] [address] * Magnesium (02/01/2022 3:29 AM EDT) [facility] Magnesium 0.72 0.69 - 1.07 mmol/L [facility] Blood 02/01/2022 3:29 AM EDT 02/01/2022 3:43 AM EDT Narrative Resulting Agency Comment Spec In Lab Jay Urban MD CHEMISTRY ORDERABLES Performing Organization Address [facility]/ZIP Co de Phone Number [facility] [place] [address] * (ABNORMAL) Basic Metabolic Panel (non-fasting) (02/01/2022 3:29 AM EDT) [facility] Glucose 104 65 - 199 mg/dL [facility] Comment:Diabetes: >=200 mg/d L plus symptoms Blood Urea Nitrogen 22(H) 10 - 20 mg/dL [facility] Creatinine 1.38 0.80 - 1.50 mg/dL [facility] Sodium 143 135 - 145 mmol/L [facility] Potassium 3.7 3.5 - 5.0 mmol/L [facility] Comment: Please note: ??Patients with WBC >100,000 may have falsely elevated Potassium levels. ??For accurate Potassium quantification in these patients send serum separator tube (gold top) for subsequent determinations. ??Contact the Clinical Chemistry Laboratory if there are any questions. Chloride 108(H) 98 - 107 mmol/L [facility] Carbon Dioxide 23 22 - 31 mmol/L [facility] Anion Gap 12 5 - 15 mmol/L [facility] Calcium 8.4(L) 8.5 - 10.5 mg/dL [facility] Est Glomerular Filtration Rate 54(L) >=60 mL/min/1. 73 m?? [facility] Comment: This patient's estimated GFR [...] In Lab Jay Urban MD CHEMISTRY ORDERABLES [facility] [place] [address] * POCT Glucose (01/31/2022 8:37 PM EDT) [facility] Signature Glucose, POC 99 65 - 199 mg/dL [facility] Comment: Supplemental ranges: <140 mg/dL before meals <180 mg/dL all other times of the day Blood 01/31/2022 8:37 PM EDT 01/31/2022 8:37 PM EDT Misael Ellis MD POINT OF CARE TEST Mario JEAN Performing Organization Address City/[facility]/ZIP Co de Phone Number [facility] [place] [address] * (ABNORMAL) POCT Glucose (01/31/2022 5:05 PM EDT) Glucose, POC 225(H) 65 - 199 mg/dL [facility] Comment: Supplemental ranges: <140 mg/dL before meals <180 mg/dL all other times of the day Blood 01/31/2022 5:05 PM EDT 01/31/2022 5:05 PM EDT Misael Ellis MD POINT OF CARE TEST O TED Performing Organization Address [facility] Co de Phone Number [facility] [place] [address] * POCT Glucose (01/31/2022 2:31 PM EDT) Glucose, POC 124 65 - 199 mg/dL [facility] Comment: Supplemental ranges: <140 mg/dL before meals <180 mg/dL all other times of the day Blood 01/31/2022 2:31 PM EDT 01/31/2022 2:31 PM EDT Misael Ellis MD POINT OF CARE TEST O TED Performing Organization Address [facility] Co de Phone Number [facility] [place] [address] * ELECTROPHYSIOLOGY PROCEDURE (01/31/2022 1:49 PM EDT) Anatomical Region Laterality Modality Other Narrative 01/31/2022 2:09 PM EDT [facility] CARDIAC ELECTROPHYSIOLOGY LABORATORY CARDIAC DEVICE OPERATIVE NOTE PATIENT: Ethel Akins DATE OF OPERATION: 01/31/2022 ANALYTICS ARCHITECT (Assistant Case Manager): JAY URBAN MD, PhD SPORTS MEDICINE TRAINER: Anali Dominguez MD REFERRING SKIP MINER BLASTING: Niru Harrison MD PRE-PROCEDURE DIAGNOSIS/INDICATION(S): 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 Implantation of a permanent transvenous dual chamber pacemaker system ANESTHESIA: local and monitored anesthesia care INTRAVENOUS CONTRAST: 10 mL Omnipaque FLUOROSCOPY TIME & DOSE: 13.2 minutes, 119 Gycm2 ESTIMATED BLOOD LOSS: 15 mL COMPLICATIONS: none immediate IMPLANTED HARDWARE and FINAL LEAD PARAMETERS: Pulse generator: ? 1. [employer] [place] XT DR MRI Model #W1DR01, Serial # [id number] Atrial lead ?? 1. Medtronic CapsureFix Model# 5076-45 cm Serial# [id number] ? ? Bipolar, steroid-tipped, active-fixation IS-1 lead ? ? Access: ? Right Axillary vein ? ? Location ? Right atrial appendage ? ? F wave, pacemaker: ?? 0.6 mV ? ? Pacing threshold, pacemaker: N/A (pt in atrial flutter) ? ? Impedance, pacemaker: ??437 Ohms ? ? Diaphragmatic Stim. @ 8V: ??No Ventricular electrode: ?? Medtronic CapsureFix Model# 5076-52 cm Serial# [id number] ? ? Bipolar, steroid-tipped, active-fixation IS-1 lead [...] guidance using modified ??Seldinger micropuncture technique. A [place] ??wire was advanced to the right atrium under fluoroscopic guidance. 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 The patient's spouse Mara was updated immediately following the procedure. Recommend no systemic anticoagulation x 72 hours minimum. Electronically signed by: Jay Urban MD, PhD, [facility] Procedure Note Jay Urban MD - 01/31/2022 [facility] CARDIAC ELECTROPHYSIOLOGY LABORATORY CARDIAC DEVICE OPERATIVE NOTE PATIENT: Ethel Akins DATE OF OPERATION: 01/31/2022 ANALYTICS ARCHITECT (Assistant Case Manager): JAY URBAN MD, PhD SPORTS MEDICINE TRAINER: Anali Dominguez MD REFERRING SKIP MINER BLASTING: Niru Harrison MD PRE-PROCEDURE DIAGNOSIS/INDICATION(S): paroxysmal atrialfibrillation/flutter [...] XT DR MRI Model #W1DR01, Serial # [id number] Atrial lead 1. [employer]tronic CapsureFix Model# 5076-45 cm Serial# [id number] ? ? Bipolar, steroid-tipped, active-fixation IS-1 lead ? ? Access: Right Axillary vein ? ? Location Right atrial appendage ? ? F wave, pacemaker: 0.6 mV ? ? Pacing threshold, pacemaker: N/A (pt in atrial flutter) ? ? Impedance, pacemaker: 437 Ohms ? ? Diaphragmatic Stim. @ 8V: No Ventricular electrode: [employer] CapsureFix Model# 5076-52 cm Serial# [id number] ? ? Bipolar, steroid-tipped, active-fixation IS-1 lead [...] fluoroscopic guidance usingmodified Seldinger micropuncture technique. A [place] wire was advanced tothe right atrium under fluoroscopic guidance. Over the guide wire, a 9-[place] long peel-away Safe-sheath was insertedinto the vein. 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 The patient's spouse Mara was updated immediately following theprocedure. Recommend no systemic anticoagulation x 72 hours minimum. Electronically signed by: Jay Urban MD, PhD, FACC Jay Urban MD EP PROCEDURE ORDERAB LES * POCT Glucose (01/31/2022 11:00 AM EDT) Glucose, POC 130 65 - 199 mg/dL [facility] Comment: Supplemental ranges: <140 mg/dL before meals <180 mg/dL all other times of the day Blood 01/31/2022 11:0 0 AM EDT 01/31/2022 11:00 AM EDT Misael Ellis MD POINT OF CARE TEST O RDERABLES [facility] [place] [address] * ECHO COMPLETE (01/31/2022 8:29 AM EDT) EF 46 HEARTLAB SYSTEM Anatomical Region Laterality Modality Cardiac Other 01/31/2022 7:24 AM EDT Narrative 01/31/2022 9:05 AM EDT ? Echocardiogram Report Name: ETHEL AKINS ?Study Date: 01/31/2022 07:24 AMBP: 118/95 mmHg ? [facility] : 1950 ? Height: 180 cm ? Account: [id number] Age: 71 yrs ? Weight: 100 kg Gender: Male ?BSA: 2.2 m2 Ordering Physician: NIRU HARRISON Referring Physician: NICOLÁS REAGAN Performed By: Monster Abraham RDCS Reason For Study: Arrhythmia Exam Location: [facility]. Interpretation Summary Left ventricle is [...] function, the estimated PASP has increased. Procedure Complete-06472. Satisfactory quality. The rhythm is atrial fibrillation. [...] Date: 207:24 AMBP: 118/95 mmHg Patient Location: [address] : 1950 Height: 180 cm Account: [id number] Age: 71 yrs Weight: 100 kg Gender: Male BSA: 2.2 m2 Ordering Physician: NIRU HARRISON Referring Physician: NICOLÁS REAGAN Performed By: Monster Abraham RDCS Reason For Study: Arrhythmia Exam Location: [facility]. Interpretation Summary Left ventricle is [...] systolic function, the estimated PASP hasincreased. Procedure Complete-36711. Satisfactory quality. The rhythm is atrial fibrillation. [...] 4.5 mg/dL [facility] Blood 01/31/2022 8:16 AM EDT 01/31/2022 8:38 AM EDT Narrative Resulting Agency Comment Spec In Lab Misael Ellis MD CHEMISTRY ORDERABLES Performing Organization Address City/[facility]/ZIP Co de Phone Number [facility] [place] [phone] * Magnesium (01/31/2022 8:16 AM EDT) Magnesium 0.82 0.69 - 1.07 mmol/L [facility] Blood 01/31/2022 8:16 AM EDT 01/31/2022 8:38 AM EDT Narrative Resulting Agency Comment Spec In Lab Misael Ellis MD CHEMISTRY ORDERABLES Performing Organization Address City/[facility]/ZIP Co de Phone Number [facility] [place] [place] [address] * (ABNORMAL) Basic Metabolic Panel (non-fasting) (01/31/2022 8:16 AM EDT) Glucose 137 65 - 199 mg/dL [facility] Comment:Diabetes: >=200 mg/d L plus symptoms Blood Urea Nitrogen 22(H) 10 - 20 mg/dL [facility] Creatinine 1.58(H) 0.80 - 1.50 mg/dL [facility] Sodium 143 135 - 145 mmol/L [facility] Potassium 3.9 3.5 - 5.0 mmol/L [facility] Comment: Please note: ??Patients with WBC >100,000 may have falsely elevated Potassium levels. ??For accurate Potassium quantification in these patients send serum separator tube (gold top) for subsequent determinations. ??Contact the Clinical Chemistry Laboratory if there are any questions. Chloride 108(H) 98 - 107 mmol/L [facility] Carbon Dioxide 24 22 - 31 mmol/L [facility] Anion Gap 11 5 - 15 mmol/L [facility] Calcium 8.9 8.5 - 10.5 mg/dL [facility] Est Glomerular Filtration Rate 46(L) >=60 mL/min/1. 73 m?? [facility] Comment: This patient's estimated GFR [...] Ellis MD CHEMISTRY ORDERABLES Performing Organization Address City/State/[facility] Co de Phone Number [facility] [place] [address] * Tacrolimus level (01/31/2022 8:16 AM EDT) Tacrolimus 8.0 ng/mL [facility] Comment: Trough [...] Ellis MD CHEMISTRY ORDERABLES Performing Organization Address [facility] Co de Phone Number [facility] [place] [address] * POCT Glucose (01/31/2022 8:07 AM EDT) Glucose, POC 137 65 - 199 mg/dL [facility] Comment: Supplemental ranges: <140 mg/dL before meals <180 mg/dL all other times of the day Blood 01/31/2022 8:07 AM EDT 01/31/2022 8:07 AM EDT Misael Ellis MD POINT OF CARE TEST O RDERABLES Performing Organization Address [facility] de Phone Number [facility] [place] [address] * (ABNORMAL) Urinalysis Microscopic Exam (01/31/2022 1:30 AM EDT) RBC, Urine 4(H) 0 - 3 /HPF [facility] WBC, Urine 1 0 - 3 /HPF [facility] Squamous Epithelial Cells Raw Data, Urine 1 <=4 /HPF [facility] Hyaline Casts, Urine 2 0 - 2 /LPF [facility] Clean Catch Urine 01/31/2022 1:30 AM EDT 01/31/2022 1:42 AM EDT Narrative Resulting Agency Comment Spec In Lab Les Garcia MD URINE ORDERABL ES Performing Organization Address [facility] Co de Phone Number [facility] [place] [address] * Sodium, urine, random (01/31/2022 1:30 AM EDT) Sodium, Urine <20 mmol/L [facility] Urine 01/31/2022 1:30 AM EDT 01/31/2022 1:41 AM EDT Narrative Resulting Agency Comment Spec In Lab Misael Ellis MD URINE ORDERABLES Performing Organization Address City/[facility]/ZIP Co de Phone Number [facility] [place] [place] [address] * Creatinine, urine, random (01/31/2022 1:30 AM EDT) Creatinine, Urine 173 mg/dL [facility] Urine 01/31/2022 1:30 AM EDT 01/31/2022 1:41 AM EDT Narrative Resulting Agency Comment Spec In Lab Misael Ellis MD URINE ORDERABLES Performing Organization Address [facility] Co de Phone Number [facility] [place] [place] [address] * (ABNORMAL) Urinalysis with reflex Culture (01/31/2022 [...] Clear Clear [facility] Specific Hoffman Urine Automated 1.021 1.005 - 1.030 [facility] Color, Urine Dipstick Yellow Yellow [facility] Reflex to Culture No [facility] Clean Catch Urine 01/31/2022 1:30 AM EDT 01/31/2022 1:42 AM EDT Narrative Resulting Agency Comment Spec In Lab Misael Ellis MD URINE ORDERABLES Performing Organization Address [facility] Co de Phone Number [facility] [place] [address] * POCT Glucose (01/31/2022 12:06 AM EDT) Glucose, POC 116 65 - 199 mg/dL [facility] Comment: Supplemental ranges: <140 mg/dL before meals <180 mg/dL all other times of the day Blood 01/31/2022 12:0 6 AM EDT 01/31/2022 12:06 AM EDT Misael Ellis MD POINT OF CARE TEST O RDERABLES Performing Organization Address [facility] Co de Phone Number [facility] [place] [address] * (ABNORMAL) Hemoglobin A1c (01/30/2022 9:45 PM EDT) Hemoglobin A1c 6.7(H) 4.3 - 5.6 % [facility] [...] Mellitus, Diabetes Care 2013; 36: Suppl. 1, Z03-13 Estimated Average Glucose See note mg/dL [facility] [...] into estimated average glucose values. ??Diabetes Care 2008:31(8):3978-8000. Blood Venous Draw / Unknown 01/30/2022 9:45 PM EDT 01/30/2022 11:41 PM EDT Narrative Resulting Agency Comment Spec In Lab Les Garcia MD CHEMISTRY ROCHELLE JENNINGS [facility] [place] [address] * (ABNORMAL) Differential, Automated (01/30/2022 9:45 PM EDT) Neutrophil % 63.5 % [facility] Neutrophil Absolute 5.52 1.70 - 6.10 x10(3)/mc L [facility] Lymph % 24.1 % [facility] Lymphocytes Abs 2.1 0.9 - 3.2 x10(3)/mc L [facility] Monocyte % 6.0 % [facility] Monocyte Abs 0.5 0.3 - 0.9 x10(3)/[facility] Eos % 5.4 % [facility] Eosinophils Abs 0.5(H) 0.0 - 0.4 x10(3)/[facility] Basophil % 0.8 % [facility] Baso Absolute 0.1 0.0 - 0.1 x10(3)/[facility] Immature Gran % 0.20 % [facility] Comment: Immature granulocytes(IG's)percentage and absolute count will include metamyelocytes, myelocytes, and promyelocytes. Blood smears from CBCs yielding IG's will be scanned manually for concordance. If this scan disagrees with the automated IG or if promyelocytes are noted, a manual differential will be performed. Immature Gran Absolute 0.02 0.00 - 0.04 x10(3)/[facility] Blood 01/30/2022 9:45 PM EDT 01/30/2022 9:45 PM EDT Narrative Resulting Agency Comment Spec In Lab Les Garcia MD HEMATOLOGY ORD ERABLES [facility] [place] [address] * Hemogram (01/30/2022 9:45 PM EDT) White Blood Cell 8.7 4.0 - 9.5 x10(3)/[facility] Red Blood Cell 4.62 4.58 - 5.54 x10(6)/[facility] Hemoglobin 14.3 13.7 - 16.5 g/dL [facility] Hematocrit 41.7 40.5 - 48.5 % [facility] Mean Cell Volume 90.3 82.9 - 93.1 fL [facility] Mean Cell Hemoglobin 31.0 27.5 - 32.1 pg [facility] Mean Cell Hemoglobin Concentration 34.3 32.0 - 35.7 g/dL [facility] Platelet 219 145 - 357 x10(3)/[facility] RDW Standard Deviation 42.4 36.0 - 45.0 fL [facility] RDW coefficient of variation 13.0 11.4 - 13.8 % [facility] Mean Platelet Volume 9.8 7.6 - 12.9 fL [facility] NRBC% auto 0.0 % [facility] NRBC Absolute 0.000 0.000 - 0.000 x10(3)/[facility] Blood 01/30/2022 9:45 PM EDT 01/30/2022 9:45 PM EDT Narrative Resulting Agency Comment Spec In Lab Les Garcia MD HEMATOLOGY ORD ERABLES [facility] [place] [address] * Lipid Panel (Reflex Direct LDL) (01/30/2022 9:45 PM EDT) Cholesterol, Total 65 mg/dL [facility] Comment: Lower Risk: <200 mg/dL Average Risk: 200-239 mg/dL Higher Risk: >gl=302 mg/dL Triglyceride 124 mg/dL [facility] Comment: Average Risk/Lower Risk: <150 mg/dL Borderline High Risk: 150-199 mg/dL High Risk: 200-499 mg/dL Very High Risk: >gf=829 mg/dL HDL Cholesterol 33 mg/dL [facility] Comment: Males: ?? Higher Risk: <40 mg/dL Females: ?? Higher Risk: <50 mg/dL LDL Cholesterol 7 mg/dL [facility] Comment: Lowest Risk: <100 mg/dL Lower Risk: 100-129 mg/dL Borderline High Risk: 130-159 mg/dL High Risk: 160-189 mg/dL Very High Risk: >md=402 mg/dL Cholesterol/HDL Ratio 2.0 ratio [facility] Lipid Interpretation See Note [facility] Comment: Lipid management should be guided by a patient? s ASCVD risk, goals and preferences. ACC/AHA Guidelines recommend high intensity statin if clinical ASCVD or LDL greater than or equal to 190 mg/dL. http://LookIt.com/FZY-VLX-Fycnowhtr Adults aged 40-75 with LDL 70-189 mg/dL should have their 10 year ASCVD risk estimated with the ACC/AHA ASCVD risk jewelry estimator http://tools.acc.org/CHXPQ-Rhlp-Ltnjthvlm/ Statin should be discussed if risk greater [...] In Lab Niru Harrison MD CHEMISTRY ORDERABLES [facility] [place] [address] * (ABNORMAL) APTT (01/30/2022 9:45 PM EDT) Partial Thromboplastin Time 20(L) 25 - 37 sec [facility] Comment: Decreased clotting times may [...] S Performing Organization Address [facility] Co de Phone Number [facility] [place] [address] * (ABNORMAL) Prothrombin Time (01/30/2022 9:45 PM EDT) Prothrombin Time 12.9(H) 9.4 - 12.5 sec [facility] International Normalization Ratio 1.1 [facility] Comment: An INR [...] S Performing Organization Address [facility] Co de Phone Number [facility] [place] [address] * (ABNORMAL) Hepatic Function Panel (01/30/2022 9:45 PM EDT) Pathologist [facility] Protein, Total 6.2 6.1 - 8.0 g/dL [facility] Albumin 3.8 3.2 - 5.2 g/dL [facility] Aspartate Aminotransferase 17 0 - 39 unit/L [facility] Alanine Aminotransferase 19 0 - 55 unit/L [facility] Alkaline Phosphatase 61 40 - 130 unit/L [facility] Bilirubin, Total 2.4(H) 0.2 - 1.3 mg/dL [facility] Bilirubin, Direct 0.2 0.0 - 0.3 mg/dL [facility] Blood 01/30/2022 9:45 PM EDT 01/30/2022 9:45 PM EDT Narrative Resulting Agency Comment Spec In Lab Niru Harrison MD CHEMISTRY ORDERABLES Performing Organization Address City/[facility]/ZIP Co de Phone Number [facility] [place] [address] * (ABNORMAL) pro-Brain Natriuretic Peptide (01/30/2022 9:45 PM EDT) NT-proBNP 4,113(H) <=124 pg/mL [facility] Blood 01/30/2022 9:45 PM EDT 01/30/2022 9:45 PM EDT Narrative Resulting Agency Comment Spec In Lab Niru Harrison MD CHEMISTRY ORDERABLES Performing Organization Address [facility] Co de Phone Number [facility] [place] [address] * TSH (01/30/2022 9:45 PM EDT) Thyroid Stimulating Hormone 3.44 0.27 - 4.20 mcIU/mL [facility] Comment: Reference Interval (mcIU/mL): Females: ??First Trimester: 0.23-3.88 ??Second Trimester: 0.22-3.90 ??Third Trimester: 0.44-4.66 Blood 01/30/2022 9:45 PM EDT 01/30/2022 9:45 PM EDT Narrative Resulting Agency Comment Spec In Lab Niru Harrison MD CHEMISTRY ORDERABLES Performing Organization Address City/[facility]/ZIP Co de Phone Number [facility] [place] [address] * Phosphorus (01/30/2022 9:45 PM EDT) Phosphorus 3.3 2.5 - 4.5 mg/dL [facility] Blood 01/30/2022 9:45 PM EDT 01/30/2022 9:45 PM EDT Narrative Resulting Agency Comment Spec In Lab Niru Harrison MD CHEMISTRY ORDERABLES [facility] [place] [address] * (ABNORMAL) Magnesium (01/30/2022 9:45 PM EDT) Magnesium 0.68(L) 0.69 - 1.07 mmol/L [facility] Blood 01/30/2022 9:45 PM EDT 01/30/2022 9:45 PM EDT Narrative Resulting Agency Comment Spec In Lab Niru Harrison MD CHEMISTRY ORDERABLES Performing Organization Address [facility]/ZIP Co de Phone Number [facility] [place] [address] * (ABNORMAL) Basic Metabolic Panel (non-fasting) (01/30/2022 9:45 PM EDT) Pathologist [facility] Glucose 177 65 - 199 mg/dL [facility] Comment:Diabetes: >=200 mg/d L plus symptoms Blood Urea Nitrogen 23(H) 10 - 20 mg/dL [facility] Creatinine 1.87(H) 0.80 - 1.50 mg/dL [facility] Sodium 144 135 - 145 mmol/L [facility] Potassium 3.6 3.5 - 5.0 mmol/L [facility] Comment: Please note: ??Patients with WBC >100,000 may have falsely elevated Potassium levels. ??For accurate Potassium quantification in these patients send serum separator tube (gold top) for subsequent determinations. ??Contact the Clinical Chemistry Laboratory if there are any questions. Chloride 106 98 - 107 mmol/L [facility] Carbon Dioxide 23 22 - 31 mmol/L [facility] Anion Gap 15 5 - 15 mmol/L [facility] Calcium 9.0 8.5 - 10.5 mg/dL [facility] Est Glomerular Filtration Rate 37(L) >=60 mL/min/1. 73 m?? [facility] Comment: This patient's estimated GFR [...] In Lab Niru Harrison MD CHEMISTRY ORDERABLES [facility] [place] [address] * EKG 12 Lead (01/30/2022 7:53 PM EDT) Ventricular rate 95 BPM MUSE SYSTEM Atrial Rate 277 BPM MUSE SYSTEM QRS Duration 108 ms MUSE SYSTEM Q-T Interval 398 ms MUSE SYSTEM QTC Calculated (Bezet) 500 ms MUSE SYSTEM Calculated R [place] -58 degrees MUSE SYSTEM Calculated T [place] 72 degrees MUSE SYSTEM INTERPRETATION Atrial flutter with variable A-V block with premature ventricular or aberrantly conducted complexes Left anterior fascicular block Minimal voltage criteria for LVH, may be normal variant ( Minetto product ) Prolonged QTc Abnormal ECG When compared with ECG of 14-MAR-2021 15:13, Atrial flutter has replaced Sinus rhythm Vent. rate has increased BY ??35 BPM qtc has lengthened Confirmed by MD Kelly Danette ([id number]) on 01/31/2022 4:01:28 PM MUSE SYSTEM 01/30/2022 [...] 0841 (Given - Provider: Sigrid Moss RN)1117 ([facility] Hold - Provider: Admin Adt - Reason: Transfer to a Procedural area)1403 ([facility] Unhold - Provider: Admin Adt) 0836 (Given - Provider: Richard Lobo, JADEN) aspirin EC tablet 81 mg 81 mg, Oral, DAILY, First dose (after last modification) on Thu01/30/22 at 2044, Until Discontinued, Routine 2104 (Given - Provider: Carmela Alicia, JADEN) 0841 (Given - Provider: Sigrid Moss RN)1117 ([facility] Hold - Provider: Admin Adt - Reason: Transfer to a Procedural area)1403 ([facility] Unhold - [...] Admin Adt) 0835 (Given - Provider: Richard Lobo RN) ceFAZolin (Ancef) 2 g in dextrose [...] Adt)205 (Given - Provider: Sreedhar Arambula RN) insulin lispro (HumaLOG;Admelog) (100 unit/mL) subcutaneous [...] Sigrid Moss RN)1742 (Given - Provider: Sigrid Moss, JADEN) 1019 (Given - Provider: Richard Lobo RN [...] Alicia, JADEN)0205 (Stopped - Provider: Carmela Alicia, JADEN) metoprolol [...] Arambula RN) 0557 (Given - Provider: Sreedhar Arambula, JADEN)1132 (Given - Provider: Richard Lobo, JADEN) mycophenolate [...] Carmela Alicia, JADEN) 0842 (Given - Provider: Sigrid Moss RN)1117 (SEP [...] (Given - Provider: Carmela Alicia RN) 111 ([facility] Hold - Provider: Admin Adt - Reason: Transfer to a Procedural area)140 ([facility] Unhold - Provider: Admin Adt)2052 (Given - Provider: Sreedhar Arambula RN) tacrolimus (Prograf) capsule 2 mg 2 mg, Oral, DAILY, First dose on Thu01/31/22 at 0900, Until Discontinued, DO NOT SPLIT, CRUSH OR OPEN, Routine 0840 (Given - Provider: Sigrid Moss RN)111 ([facility] Hold - Provider: Admin Adt - Reason: Transfer to a Procedural area)1403 ([facility] Unhold - Provider: Admin Adt) 0836 (Given - Provider: Richard Lobo RN) tamsulosin (Flomax) capsule 0.4 mg 0.4 mg, Oral, DAILY, First dose on Thu01/31/22 at 0900, Until Discontinued, DO NOT CRUSH OR OPEN, Routine 0841 (Given - Provider: Sigrid Moss RN)111 ([facility] Hold - Provider: Admin Adt - Reason: Transfer to a Procedural area)1403 ([facility] Unhold - [...] Moss RN)2349 (Given - Provider: Sreedhar Arambula, JADEN) 0556 (Given - Provider: Sreedhar Arambula, JADEN)1316 [...] PRN, Starting on Thu01/31/22 at 1044, Until 01/31/22 at 1416, Pain, As needed to induce or maintain moderate sedation per [facility] [place] Sed[place] Policy for the duration of the EP procedure., As needed to induce or maintain moderate sedation per [facility] [place] Moderate Sedation Policy for the duration of [...] of tube = 37.5 grams.), Routine 1117 ([facility] Hold - Provider: Admin Adt - Reason: Transfer to a Procedural area)1403 ([facility] Unhold - Provider: Admin Adt) iohexoL (Omnipaque) [...] for discomfort with PIV insertion, Routine 1117 ([facility] Hold - Provider: Admin Adt - Reason: Transfer to a Procedural area)1403 ([facility] Unhold - Provider: Admin Adt) magnesium sulfate 2 g in sterile water 50 mL infusion(Linked Group 3) 2 g, Intravenous, EVERY 2 HOURS PRN, Starting on Thu01/31/22 at 0704, Until 02/01/22 at 1812, Administer over 120 Minutes, Hypomagnesemia, Administer one 2 g IV bag, over 120 minutes for serum magnesium of 0.65 - 0.79 mMol/L. 1117 ([facility] Hold - Provider: Admin Adt - Reason: Transfer to a Procedural area)1403 ([facility] Unhold - Provider: Admin Adt) magnesium sulfate 2 g in sterile water 50 mL infusion(Linked Group 3) 2 g, Intravenous, EVERY 2 HOURS PRN, Starting on Thu01/31/22 at 0704, Until 02/01/22 at 1812, Administer over 120 Minutes, Hypomagnesemia, Administer two 2 g IV bag, each over 120 minutes for serum magnesium of 0.5 - 0.64 mMol/L. 1117 ([facility] Hold - Provider: Admin Adt - Reason: Transfer to a Procedural area)1403 ([facility] Unhold - Provider: Admin Adt) metoprolol (LOPRESSOR) [...] to induce or maintain moderate sedation per [facility] [place]erate Sedation Policy for the duration of the EP procedure., As needed to induce or maintain moderate sedation per [facility] [place]erate Sedation Policy for the duration of [...] Mora, JADEN)1204 (Given - Provider: Steffen Mora, RN)1222 (Given - Provider: Steffen Mora, RN)1241 (Given - Provider: Steffen Mora, RN) nitroGLYcerin (Nitrostat) disintegrating tablet 0.4 mg [...] last 24 to 72 hours., Routine 1117 ([facility] Hold - Provider: Admin Adt - Reason: Transfer to a Procedural area)1403 ([facility] Unhold - [...] provided on this medication record., Routine 1117 ([facility] Hold - Provider: Admin Adt - Reason: Transfer to a Procedural area)1403 ([facility] Unhold - [...] mMol/L. documented in this encounter Care Teams Endo Tech Relationship Specialty Start Date End Date Urbano Denis DO [address] [place] [address] [address] [facility] [address] [place] [address] PCP - General 09/03/12 03/17/22 Ruchi Valles RN Nurse Clinic Transplant Surgery 07/30/15 documented as of this encounter
--- OUTSIDE RECORDS SUMMARY | 2024-05-16 17:19 | XMS_ITS | Encounter Summary ---
Author Organization [facility] Address [facility] [place] [address] Care Team Providers Care Hydroelectric Component Machinist Name Role Phone Urbano Denis DO Primary Care Provider [phone] Reason for Visit * Reason Comments Establish Care * Consultation (Routine) - Closed Specialty Diagnoses / Procedures Referred By Humberto flor Referred To Contact General Surgery Diagnoses Postprandial RUQ pain Hepatitis C virus infection without hepatic coma, unspecified chronicity Gall stones Hepatic steatosis Other complication of kidney transplant Tal Eagle MD [facility] [place] [address] Matt Corea MD [facility] [place] [address] Referral ID Status Reason Start Date Expiration Date V isits Requested Visits Authorized [id number] Closed Consult, Test & Treat 10/22/2021 10/22/2022 1 1 Encounter Details Date Type Department Care Team (Late st Contact Info) Description 12/05/2021 11:00 AM EDT Office Visit General Surgery at [place] [phone] Sandra Davis MD [facility] [address] Asymptomatic gallstones Social History Tobacco Use Types [...] hepatitis) K73.2 ??? Prophylactic immunotherapy Z29.8 ??? 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 [...] PRG FLUOROSCOPY EXAM UP TO 1 HR [facility] PROV N/A 05/10/2020 FLUOROSCOPY (WRVU 0.17) performed by Joseph Ang MD at [facility] MAIN OR ??? PRO ANASTOMOSIS, AV, ANY SITE Left 05/09/2015 AV FISTULA CREATION, DIRECT HEMODIALYSIS, ANY SITE, EG ASHWINI FISTULA UPPER EXTREMITY performed by Que Amaro MD at [facility] MAIN OR ??? PRO CYSTOURETHROSCOPY, URETER CATHETER Left 06/17/2018 CYSTO, RETROGRADE, URETEROPYELOGRAPHY (WRVU 2.37) performed by Edinson Grider III, MD at [facility] [place] ??? PRO LAMINEC/FACETECT/FORAMIN, LUMBAR 1 SEG N/A 05/10/2020 LAMINECTOMY, FACETECTOMY & FORAMINOTOMY,LUMBAR, ONE LEVEL (WRVU 15.37) performed by Joseph Ang MD at [facility] OR ??? PRO LAMINOTOMY, LUMBAR DISK, [...] Left 01/31/2019 US Renal Transplant Left 01/31/2019 [facility] RAD ULTRASOUND ??? US RENAL TRANSPLANT LEFT Left 02/07/2019 US Renal Transplant Left 02/07/2019 [facility] RAD ULTRASOUND Bilateral inguinal hernia [...] AM EST TH Visit (TeleHealth) Cardiology at [address] [address] Byron Armijo MD [facility] [place] [place] [address] 07/14/2024 10:00 AM EST Hospital Encounter Non-Invasive Cardiology Lab [facility] [place] [address] Arrived documented as of this encounter Goals [...] obstruction documented in this encounter Care Teams Hydroelectric Component Machinist Relationship Specialty Start Date End Date Urbano Denis DO [address] [place] [address] [address] [facility] 1 [place] [address] PCP - General 09/03/12 03/17/22 Ruchi Valles RN Nurse Clinic Transplant Surgery 07/30/15 documented as of this encounter
--- OUTSIDE RECORDS SUMMARY | 2024-05-16 17:19 | XMS_ITS | Encounter Summary ---
Author Organization [facility] Address [facility] [place] [address] Care Team Providers Care Tipple Tender Name Role Phone Adeel Urbano KIRBY Primary Care Provider Encounter Details Date Type Department Care Team (Late st Contact Info) Description 01/30/2022 [place] [address] Social History Tobacco Use Types [...] EST TH Visit (TeleHealth) Cardiology at [address] [phone] Byron Brown MD [facility] [address] 07/14/2024 10:00 AM EST Hospital Encounter Non-[place] [address] Arrived documented as of this [...] on filedocumented in this encounter Care Teams Tipple Tender Relationship Specialty Start Date End Date Urbano Denis DO [address] [place] [address] PCP - General 09/03/12 03/17/22 Ruchi Valles RN Nurse Clinic Transplant Surgery 07/30/15 documented as of this encounter
--- OUTSIDE RECORDS SUMMARY | 2024-05-16 17:19 | XMS_ITS | Encounter Summary ---
Author Organization [facility] [place] [address] Care Team Providers Care Sales Closer Name Role Phone AdeelUrbano boland Primary Care Provider [phone] Reason for Visit * Reason Comments Medication Refill Encounter Details Date Type Department Care Team (Late st Contact Info) Description 10/28/2021 Refill [place] [address] Tal Eagle MD [facility] [place] [address] Social History Tobacco Use Types Packs/Day Years [...] EST TH Visit (TeleHealth) Cardiology at [address] [address] Byron Brown MD [facility] [place] [address] 07/14/2024 10:00 AM [facility] Hospital Encounter Non-[place] [address] Arrived documented as of this encounter Goals Goal Patient Goal Type Associated Problems Recent Progress Patient-Stated? Author DH Home Medication Compliance and Understanding Patient Facing Action Plan On track( 017 10:41 AM EDT) eSlena Scott, [facility] Note: Patient Goal: Clear hepatitis C Timeframe to meet goal: within 12 weeks of therapy documented as of this encounter Visit Diagnoses Not on filedocumented in this encounter Care Teams Sales Closer Relationship Specialty Start Date End Date Urbano Denis DO [address] [place] [address] [address] [facility] 1 [place] [address] PCP - General 09/03/12 03/17/22 Ruchi Valles RN Nurse Clinic Transplant Surgery 07/30/15 documented as of this encounter
--- OUTSIDE RECORDS SUMMARY | 2024-05-16 17:19 | XMS_ITS | Encounter Summary ---
Author Organization [facility] [place] [address] Care Team Providers Care Envelope Folding Machine Adjuster Name Role Phone AdeelUrbano toscano Primary Care Provider [phone] Reason for Visit * Reason Onset Date Comments Medication Refill 01/14/2022 Atorvastatin Encounter Details Date Type Department Care Team (Late st Contact Info) Description 01/14/2022 Refill Cardiology at [address] [phone] Byron Brown MD [facility] [place] [address] Medication Refill (Atorvastatin) Social History Tobacco Use [...] AM EST TH Visit (TeleHealth) Cardiology at [address] [phone] Byron Brown MD [facility] [place] [address] 07/14/2024 10:00 AM EST Hospital Encounter Non-[place] [address] Arrived documented as of this [...] Coronary atherosclerosis of unspecified type of vessel, ekuk or graft documented in this encounter Care Teams Envelope Folding Machine Adjuster Relationship Specialty Start Date End Date Urbano Denis DO [address] [place] [place] [address] PCP - General 09/03/12 03/17/22 Ruchi Valles RN Nurse Clinic Transplant Surgery 07/30/15 documented as of this encounter
--- OUTSIDE RECORDS SUMMARY | 2024-05-16 17:19 | XMS_ITS | Encounter Summary ---
Author Organization [facility] [place] [address] Care Team Providers Care Vascular Technologist Sonographer Name Role Phone Urbano Denis DO Primary Care Provider Encounter Details Date Type Department Care Team (Late st Contact Info) Description 01/10/2022 [place] [phone] Javi Gamez MD Social History Tobacco Use Types Packs/Day [...] for ICH. Per provider Dyan Easton at [facility], the patient presented with mild [...] to the caudate head. Brain MRI from [facility] shows the deep hemorrhage in [...] 11:00 AM EST Visit (TeleHealth) Cardiology at [address] [phone] Byron Brown MD [facility] [place] [address] 07/14/2024 10:00 AM EST Hospital Encounter Non-[place] [address] Arrived documented as of this encounter Goals [...] on filedocumented in this encounter Care Teams Vascular Technologist Sonographer Relationship Specialty Start Date End Date Urbano Denis DO [address] [place] [address] [place] [address] PCP - General 09/03/12 03/17/22 Ruchi Valles RN Nurse Clinic Transplant Surgery 07/30/15 documented as of this encounter
--- OUTSIDE RECORDS SUMMARY | 2024-05-16 17:19 | XMS_ITS | Encounter Summary ---
Author [place] [address] Care Team Providers Care Residential Nurse Name Role Phone AdeelUrbano boland Primary Care Provider + [phone] Reason for Visit * Reason Comments Medication Refill Metoprolol Encounter Details Date Type Department Care Team (Late st Contact Info) Description 08/22/2021 Refill Cardiology at [address] [phone] Byron Brown MD [facility] [address] Medication Refill (Metoprolol) Social History Tobacco Use [...] AM EST TH Visit (TeleHealth) Cardiology at [address] [phone] Byron Brown MD [facility] [place] [address] 07/14/2024 10:00 AM EST Hospital Encounter Non-Invasive [place] [address] Arrived documented as of [...] fibrillation documented in this encounter Care Teams Residential Nurse Relationship Specialty Start Date End Date Urbano Denis DO [address] [place] [address] PCP - General 09/03/12 03/17/22 Ruchi Valles RN Nurse Clinic Transplant Surgery 07/30/15 documented as of this encounter
--- OUTSIDE RECORDS SUMMARY | 2024-05-16 17:19 | XMS_ITS | Encounter Summary ---
Author Organization [facility] Address [facility] [place] [address] Care Team Providers Care Specialty Therapist Name Role Phone Adeel Urbano KIRBY Primary Care Provider [phone] Encounter Details Date Type Department Care Team (Late st Contact Info) Description 02/03/2022 Notes Only Cardiology at [address] [place] [address] Niru Reyes [place] [address] Social History Tobacco Use Types Packs/Day Years [...] EST TH Visit (TeleHealth) Cardiology at [address] [phone] Byron Brown MD [facility] [place] [address] 07/14/2024 10:00 AM EST Hospital Encounter Non-[place] [address] Arrived documented as of this [...] on filedocumented in this encounter Care Teams Specialty Therapist Relationship Specialty Start Date End Date Urbano Denis DO [address] [place] [address] PCP - General 09/03/12 03/17/22 Ruchi Valles RN Nurse Clinic Transplant Surgery 07/30/15 documented as of this encounter
--- OUTSIDE RECORDS SUMMARY | 2024-05-16 17:19 | XMS_ITS | Encounter Summary ---
Author Organization [facility] [place] [address] Care Team Providers Care Diplomatic Interpreter/Translator Name Role Phone Adeel Urbano KIRBY Primary Care Provider [phone] Encounter Details Date Type Department Care Team (Late st Contact Info) Description 12/30/2021 External Results [place] [address] Social History Tobacco Use Types [...] EST TH Visit (TeleHealth) Cardiology at [address] [phone] Byron Brown MD [facility] [address] 07/14/2024 10:00 AM EST Hospital Encounter Non-Invasive [place] [address] Arrived documented as of this [...] filedocumented in this encounter Care Teams Diplomatic Interpreter/Translator Relationship Specialty Start Date End Date Urbano Denis DO [address] [place] [address] PCP - General 09/03/12 03/17/22 Ruchi Valles RN Nurse Clinic Transplant Surgery 07/30/15 documented as of this encounter
--- OUTSIDE RECORDS SUMMARY | 2024-05-16 17:19 | XMS_ITS | Encounter Summary ---
Author Organization [facility] [place] [address] Care Team Providers Care Degreasing Solution Mixer Name Role Phone Adeel Urbano KIRBY Primary Care Provider [phone] Encounter Details Date Type Department Care Team (Late st Contact Info) Description 09/16/2021 External Results [place] [address] Social History Tobacco Use Types [...] AM EST TH Visit (TeleHealth) Cardiology at [address] [phone] Byron Brown MD [facility] [place] [address] 07/14/2024 10:00 AM EST Hospital Encounter Non[place] [address] Arrived documented as of this [...] on filedocumented in this encounter Care Teams Degreasing Solution Mixer Relationship Specialty Start Date End Date Urbano Denis DO [address] [place] [address] PCP - General 09/03/12 03/17/22 Ruchi Valles RN Nurse Clinic Transplant Surgery 07/30/15 documented as of this encounter
--- OUTSIDE RECORDS SUMMARY | 2024-05-16 17:20 | XMS_ITS | Encounter Summary ---
Author Organization [facility] [place] [address] Care Team Providers Care Erp Programmer Name Role Phone Urbano Denis DO Primary Care Provider [phone] Encounter Details Date Type Department Care Team (Late st Contact Info) Description 01/10/2021 Notes Only Solid Organ Transplant at [facility] [place] [address] Anabella Bright Social History Tobacco Use Types [...] as of this encounter Progress Notes * Anaeblla Bright - 01/10/2021 3:03 PM EDT Transplant Log Loader Helper Note: Blue Medicare Advantage Plan effective 07/06/2020. [...] AM EST TH Visit (TeleHealth) Cardiology at [address] [phone] Byron Brown MD [facility] [place] [place] [address] 07/14/2024 10:00 AM EST Hospital Encounter Non[place] [address] Arrived documented as of this encounter Goals Goal Patient Goal Type Associated Problems Recent Progress Patient-Stated? Author [facility] Medication Compliance and Understanding Patient Facing Action Plan On track( 017 10:41 AM EDT) No Selena Cisneros, [facility] Note: Patient Goal: Clear hepatitis C Timeframe to meet goal: within 12 weeks of therapy documented as of this encounter Visit Diagnoses Not on filedocumented in this encounter Care Teams Erp Programmer Relationship Specialty Start Date End Date Urbano Denis DO [address] [facility] 1 [place] [address] PCP - General 09/03/12 03/17/22 Ruchi Valles RN Nurse Clinic Transplant Surgery 07/30/15 documented as of this encounter
--- OUTSIDE RECORDS SUMMARY | 2024-05-16 17:20 | XMS_ITS | Encounter Summary ---
[place] [address] Care Team Providers Care Recreation Attendant Name Role Phone AdeelUrbano boland Primary Care Provider Encounter Details Date Type Department Care Team (Late st Contact Info) Description 02/26/2021 Telephone Cardiology at [address] [address] Anel Proctor RN Social History Tobacco Use [...] for Dr. Brown- Yash is currently at [facility] for stroke and his apixaban and ASA have been stopped. [facility] has been in touch with Neurosurgery at [facility] and patient is scheduled for repeat head CT this afternoon. Unable to transfer patient to [facility] because of bed availability- so patient will remain at [facility] for now. Mrs Bolden has also contacted [...] EST TH Visit (TeleHealth) Cardiology at [address] [phone] Byron Brown MD [facility] [place] [address] 07/14/2024 10:00 AM EST Hospital Encounter [place] [address] Arrived documented as of this encounter Goals [...] on filedocumented in this encounter Care Teams Recreation Attendant Relationship Specialty Start Date End Date Urbano Denis DO [address] [place] [address] [facility] 1 [place] [address] PCP - General 09/03/12 03/17/22 Ruchi Valles RN Nurse Clinic Transplant Surgery 07/30/15 documented as of this encounter
--- OUTSIDE RECORDS SUMMARY | 2024-05-16 17:20 | XMS_ITS | Encounter Summary ---
Author Organization [facility] [place] [address] Care Team Providers Care Underwriting Support Manager Name Role Phone Urbano Denis DO Primary Care Provider [phone] Encounter Details Date Type Department Care Team (Late st Contact Info) Description 02/25/2021 Telephone [place] [address] Radha Espinoza, JUSTICE PROFESSOR [facility] [place] [address] Social History Tobacco Use Types Packs/Day Years [...] EST TH Visit (TeleHealth) Cardiology at [address] [phone] Byron Brown MD [facility] [place] [address] 07/14/2024 10:00 AM EST Hospital Encounter Non-[place] [phone] Arrived documented as of this encounter Goals [...] on filedocumented in this encounter Care Teams Underwriting Support Manager Relationship Specialty Start Date End Date Urbano Denis DO [address] [facility] 1 [place] [address] PCP - General 09/03/12 03/17/22 Hai STANLEY,Ruchi Nurse Clinic Transplant Surgery 07/30/15 documented as of this encounter
--- OUTSIDE RECORDS SUMMARY | 2024-05-16 17:20 | XMS_ITS | Encounter Summary ---
Author Organization [facility] [place] [address] Care Team Providers Care Pharmacology Associate Name Role Phone AdeelUrbano boland Primary Care Provider [phone] Reason for Visit * Reason Comments Medication Refill Encounter Details Date Type Department Care Team (Late st Contact Info) Description 10/23/2020 Refill [place] [address] Tal Eagle MD [facility] [place] [address] Social History Tobacco Use Types Packs/Day Years [...] EST TH Visit (TeleHealth) Cardiology at [address] [phone] Byron Brown MD [facility] [place] [address] 07/14/2024 10:00 AM [facility] Hospital Encounter Non[place] [address] Arrived documented as of this [...] on filedocumented in this encounter Care Teams Pharmacology Associate Relationship Specialty Start Date End Date Urbano Denis DO [address] [place] [address] [address] [facility] 1 [place] [address] PCP - General 09/03/12 03/17/22 Ruchi Valles RN Nurse Clinic Transplant Surgery 07/30/15 documented as of this encounter
--- OUTSIDE RECORDS SUMMARY | 2024-05-16 17:20 | XMS_ITS | Encounter Summary ---
[place] [address] Care Team Providers Care Well Site Drilling Engineer Name Role Phone Urbano Denis DO Primary Care Provider [phone] Reason for Referral * Consultation (Routine) - Closed Specialty Diagnoses / Procedures Referred By Humberto flor Referred To Contact Gastroenterology Diagnoses H/O kidney transplant Diverticulitis of large intestine without perforation or abscess without bleeding Tal Eagle MD [facility] [place] [address] [facility] [address] [place] [address] Referral ID Status Reason Start Date Expiration Date V isits Requested Visits Authorized [id number] Closed Test Only 05/14/2021 05/14/2022 1 1 Encounter Details Date Type Department Care Team (Late st Contact Info) Description 05/14/2021 Telephone Solid [place] [address] Marisela Metcalf RN Social History [...] up with GI after recent admission at [facility] when he was diagnosed with diverticulitis. Dr. Pettit recommended PPI daily for GERD and follow up colonoscopy. Mara does not believe Yash needs daily medication for GERD since he does not have frequent symptoms and would prefer he has his colonoscopy at [facility]. I let Mara know that if Yash is having GERD symptoms more than twice weekly he would benefit from a daily medication. I also confirmed we could set him up for his colonoscopy here at [facility] if that is what they prefer. Mara [...] AM EST TH Visit (TeleHealth) Cardiology at [address] [phone] Byron Brown MD [facility] [place] [address] 07/14/2024 10:00 AM EST Hospital Encounter Non-[place] [address] Arrived Scheduled Referrals Name Type Priority Associated Diagnoses Orde r Schedule REFERRAL TO COLONOSCOPY PROCEDURE Outpatient Referral Routine H/O kidney transplant Diverticulitis of large intestine without perforation or abscess without bleeding Ordered: 05/14/2021 documented as of this encounter Goals Goal Patient Goal Type Associated Problems Recent Progress Patient-Stated? Author [facility] Medication Compliance and Understanding Patient [...] hemorrhage) documented in this encounter Care Teams Well Site Drilling Engineer Relationship Specialty Start Date End Date Urbano Denis DO [address] [place] [address] PCP - General 09/03/12 03/17/22 Ruchi Valles RN Nurse Clinic Transplant Surgery 07/30/15 documented as of this encounter
--- OUTSIDE RECORDS SUMMARY | 2024-05-16 17:20 | XMS_ITS | Encounter Summary ---
Author Organization [facility] [place] [address] Care Team Providers Care Chief Vendor Quality Name Role Phone Urbano Denis DO Primary Care Provider Encounter Details Date Type Department Care Team (Late st Contact Info) Description 02/27/2021 Ancillary Procedure Radiology Library at [facility] [place] [address] Urbano Denis DO [address] [place], [place] [address] Social History Tobacco Use Types Packs/Day Years [...] 11:00 AM EST Visit (TeleHealth) Cardiology at [address] [place] [phone] Byron Brown MD [facility] [place] [address] 07/14/2024 10:00 AM EST Hospital Encounter Non-[place] [address] Arrived documented as of this encounter Goals [...] It's purpose is for storage only. Urbano LAGOS FILM LIBRARY ORD ERABLES [place], [place] documented in this encounter Visit Diagnoses Not on filedocumented in this encounter Care Teams Chief Vendor Quality Relationship Specialty Start Date End Date Urbano Denis DO [address] [place] [address] PCP - General 09/03/12 03/17/22 Ruchi Valles RN Nurse Clinic Transplant Surgery 07/30/15 documented as of this encounter
--- OUTSIDE RECORDS SUMMARY | 2024-05-16 17:20 | XMS_ITS | Encounter Summary ---
Author Organization [facility] [place] [address] Care Team Providers Care Applicator Sprayer Name Role Phone Urbano Denis DO Primary Care Provider [phone] Encounter Details Date Type Department Care Team (Late st Contact Info) Description 02/25/2021 Telephone Neurology at [facility] [place] [address] Maxi Clement Jr., MD [facility] [place] [address] Social History Tobacco Use Types Packs/Day Years [...] EDT Spoke to Dr. Walsh @ [facility] ED. Pt presented there with ~10 days [...] alertness past 2 days. Discussed with neurosurgery office communication professor who will review images. I advised BP control <140/90, and no anticoagulants/antiplateletes, neurochecks q1-2 hours and repeat HCT for further alterations of level of consciousness or new focal deficits. At the moment [facility] is taking transfers only for procedures- again [...] 11:00 AM EST Visit (TeleHealth) Cardiology at [address] [address] Byron Brown MD [facility] [place] [address] 07/14/2024 10:00 AM EST Hospital Encounter [place] [address] Arrived documented as of this encounter Goals [...] on filedocumented in this encounter Care Teams Applicator Sprayer Relationship Specialty Start Date End Date Urbano Denis DO [address] [place] [address] PCP - General 09/03/12 03/17/22 Ruchi Valles RN Nurse Clinic Transplant Surgery 07/30/15 documented as of this encounter
--- OUTSIDE RECORDS SUMMARY | 2024-05-16 17:20 | XMS_ITS | Encounter Summary ---
Author Organization [facility] [place] [address] Care Team Providers Care Freelance Photographer Name Role Phone AdeelUrbano toscano Primary Care Provider [phone] Encounter Details Date Type Department Care Team (Late st Contact Info) Description 02/25/2021 9:10 PM EDT Ancillary Procedure Radiology Library at [facility] [place] [phone] Sonia Stewart MD [facility] [place] [address] Social History Tobacco Use Types Packs/Day Years [...] 11:00 AM EST Visit (TeleHealth) Cardiology at [address] [place] [phone] Byron Brown MD [facility] [place] [address] 07/14/2024 10:00 AM EST Hospital Encounter Non-Invasive [place] [address] Arrived documented as of this encounter Goals [...] Stewart MD IMG FILM LIBRARY ORD ERABLES [place], [place] documented in this encounter Visit Diagnoses Not on filedocumented in this encounter Care Teams Freelance Photographer Relationship Specialty Start Date End Date Urbano Denis DO [address] [place] [address] PCP - General 09/03/12 03/17/22 Ruchi Valles RN Nurse Clinic Transplant Surgery 07/30/15 documented as of this encounter
--- OUTSIDE RECORDS SUMMARY | 2024-05-16 17:20 | XMS_ITS | Encounter Summary ---
[place] [address] Care Team Providers Care Fryline Attendant Name Role Phone Urbano Denis DO Primary Care Provider [phone] Reason for Referral * Diagnostic Test (Routine) - Closed Specialty Diagnoses / Procedures Referred By Contac t Referred To Contact Cardiology Diagnoses Atrial fibrillation with RVR Procedures Jeffrey 48 Hrs-15 Days Byron Brown MD [facility] [place] [address] [facility] [place] [address] Referral ID Status Reason Start Date Expiration Date V isits Requested Visits Authorized [id number] Closed Specialty Service Requested 03/15/2021 05/13/2021 1 1 Reason for Visit * Diagnostic Test (Routine) - Closed Specialty Diagnoses / Procedures Referred By Contac t Referred To Contact Cardiology Diagnoses Atrial fibrillation with RVR Procedures Jeffrey 48 Hrs-15 Days Byron Brown MD [facility] [place] [address] [facility] [place] [address] Referral ID Status Reason Start Date Expiration Date V isits Requested Visits Authorized [id number] Closed Specialty Service Requested 03/15/2021 05/13/2021 1 1 Encounter Details Date Type Department Care Team (Late st Contact Info) Description 03/14/2021 4:00 PM EDT - 03/14/2021 11:59 PM EDT Hospital Encounter Non-Invasive Cardiology Lab [facility] [place] [address] Byron Brown MD [facility] [place] [address] Atrial fibrillation with RVR - had flutter [...] 11:00 AM EST Visit (TeleHealth) Cardiology at [address] [address] Byron Brown MD [facility] [place] [address] 07/14/2024 10:00 AM EST Hospital Encounter Non-[place] [address] Arrived documented as of this encounter Goals [...] Modality Other Narrative 04/03/2021 10:27 AM EDT [facility] ? Ambulatory Cardiac Event Monitor Report Duration of recordind 23h Summary Data Predominant rhythm: Predominant underlying rhythm was Sinus Rhythm. Minimum sinus rate: 41 bpm ?? Maximum sinus rate: 82 bpm ? Average heart rate: 57 bpm Atrial fibrillation: ? None Pauses: ? None Ectopic beats Isolated SVEs were frequent (6.6%, [address]), SVE Couplets were rare (<1.0%, 4420), and [...] fibrillation documented in this encounter Care Teams Fryline Attendant Relationship Specialty Start Date End Date Urbano Denis DO [address] [place] [address] PCP - General 09/03/12 03/17/22 Hai STANLEY,Ruchi Nurse Clinic Transplant Surgery 07/30/15 documented as of this encounter
--- OUTSIDE RECORDS SUMMARY | 2024-05-16 17:20 | XMS_ITS | Encounter Summary ---
Author Organization [facility] [place] [address] Care Team Providers Care Currency Exchange Specialist Name Role Phone Adeel Urbano KIRBY Primary Care Provider Encounter Details Date Type Department Care Team (Late st Contact Info) Description 06/21/2021 Telephone [place] [address] Devi Preciado Social History Tobacco [...] 11:00 AM EST Visit (TeleHealth) Cardiology at [address] [address] Byron Brown MD [facility] [place] [address] 07/14/2024 10:00 AM EST Hospital Encounter Non-[place] [address] Arrived documented as of this [...] on filedocumented in this encounter Care Teams Currency Exchange Specialist Relationship Specialty Start Date End Date Urbano Denis DO [address] [place] [address] [address] [facility] 1 [place] [address] PCP - General 09/03/12 03/17/22 Ruchi Valles RN Nurse Clinic Transplant Surgery 07/30/15 documented as of this encounter
--- OUTSIDE RECORDS SUMMARY | 2024-05-16 17:20 | XMS_ITS | Encounter Summary ---
Author Organization [facility] Joel [facility] [place] [address] Care Team Providers Care Brasswind Instrument Repairer Name Role Phone Urbano Denis DO Primary Care Provider Encounter Details Date Type Department Care Team (Late st Contact Info) Description 05/03/2021 Telephone [place] [address] Radha Espinoza, GLOBAL LEAD [facility] [place] [address] Social History Tobacco Use Types Packs/Day Years [...] EST TH Visit (TeleHealth) Cardiology at [address] [address] Byron Brown MD [facility] [place] [address] 07/14/2024 10:00 AM EST Hospital Encounter Non-Invasive [place] [address] Arrived documented as of this encounter Goals [...] on filedocumented in this encounter Care Teams Brasswind Instrument Repairer Relationship Specialty Start Date End Date Urbano Denis DO [address] [place] [address] [address] [facility] 1 [place] [address] PCP - General 09/03/12 03/17/22 Hai STANLEY,Ruchi Nurse Clinic Transplant Surgery 07/30/15 documented as of this encounter
--- OUTSIDE RECORDS SUMMARY | 2024-05-16 17:20 | XMS_ITS | Encounter Summary ---
Author Organization [facility] [place] [address] Care Team Providers Care Copy Chief Name Role Phone Urbano Denis DO Primary Care Provider [phone] Reason for Visit * Reason Comments Medication Refill Encounter Details Date Type Department Care Team (Late st Contact Info) Description 01/24/2021 Refill Cardiology at [address] [phone] Byron Brown MD [facility] [place] [address] Medication Refill Social History Tobacco Use Types [...] AM EST TH Visit (TeleHealth) Cardiology at [address] [phone] Byron Brown MD [facility] [place] [address] 07/14/2024 10:00 AM [facility] Hospital Encounter Non-[place] [address] Arrived documented as of this encounter Goals [...] Coronary atherosclerosis of unspecified type of vessel, fond du lac or graft documented in this encounter Care Teams Copy Chief Relationship Specialty Start Date End Date Urbano Denis DO [address] [place] [address] PCP - General 09/03/12 03/17/22 Ruchi Valles RN Nurse Clinic Transplant Surgery 07/30/15 documented as of this encounter
--- OUTSIDE RECORDS SUMMARY | 2024-05-16 17:20 | XMS_ITS | Encounter Summary ---
Author Organization [facility] [place] [address] Care Team Providers Care Dry Box Operator Name Role Phone Urbano Denis DO Primary Care Provider Encounter Details Date Type Department Care Team (Late st Contact Info) Description 04/05/2021 Telephone [place] [phone] Marisela Metcalf RN Social History Tobacco Use [...] He is currently admitted for diverticulitis at [facility]. I assured Mara that CT scanwas re-asurring regarding his kidney. Mara feels better knowing we are aware and involved in Yash's care. I asked her to call at any timewith questions or concerns. documented in this encounter Plan of Treatment Upcoming Encounters Date Type Department Care Team (Late st Contact Info) Description 06/22/2024 11:00 AM EST TH Visit (TeleHealth) Cardiology at [address] [phone] [facility] [place] [address] 07/14/2024 10:00 AM EST Hospital Encounter Non-Invasive Cardiology Lab [place], [place] [...] filedocumented in this encounter Care Teams Dry Box Operator Relationship Specialty Start Date End Date Urbano Denis DO [address] [place] [address] PCP - General 09/03/12 03/17/22 Ruchi Valles RN Nurse Clinic Transplant Surgery 07/30/15 documented as of this encounter
--- OUTSIDE RECORDS SUMMARY | 2024-05-16 17:20 | XMS_ITS | Encounter Summary ---
Author Organization [facility] [place] [address] Care Team Providers Care Clinic Supervisor Name Role Phone Urbano Denis DO Primary Care Provider [phone] Encounter Details Date Type Department Care Team (Late st Contact Info) Description 12/27/2020 2:00 PM EDT TH Visit (TeleHealth) Cardiology at [address] [address] Byron Brown MD [facility] [place] [address] Coronary artery disease involving [place] heart, unspecified vessel or lesion type, unspecified [...] included. [facility] [place] [address] CARDIOLOGY/ VASCULAR OUTPATIENT NOTE Cody Bolden Urbano Denis, OFFICE VISIT : (Telehealth, phone) Pleasant 69 year old male.?S/p kidney transplant in 2016. ? The patient did not have a significant cardiac history but was admitted to [facility] in January 2019 with newly [...] shortness of breath. He recently came into [facility] for echo follow-up. In the past, his LVEF was as low as 30% and later improved to 45%. Currently back to normal at 59%. Mild noted (see below). He has back surgery at [facility] in May 2020. At that [...] significant cardiac history but was admitted to [facility] in January 2019 with newly [...] 6 months or prn Byron Brown MD, [facility] Cardiovascular Medicine [facility] Clinic scheduling: Trinidad John [phone] Clinic Team Nurse: Anel Proctor RN [phone] The total time associated with this visit was 20 minutes. documented in this encounter Plan of Treatment Upcoming Encounters Date Type Department Care Team (Late st Contact Info) Description 06/22/2024 11:00 AM EST TH Visit (TeleHealth) Cardiology at [address] [phone] Byron Brown MD [facility] [place] [address] 07/14/2024 10:00 AM EST Hospital Encounter Non-[place] [address] Arrived documented as of this encounter Goals [...] Visit Diagnoses Diagnosis Coronary artery disease involving [place] heart, unspecified vessel or lesion type, unspecified whether angina present documented in this encounter Care Teams Clinic Supervisor Relationship Specialty Start Date End Date Urbano Denis DO [address] [place] [address] [address] [facility] 1 [place] [address] PCP - General 09/03/12 03/17/22 Ruchi Valles RN Nurse Clinic Transplant Surgery 07/30/15 documented as of this encounter
--- OUTSIDE RECORDS SUMMARY | 2024-05-16 17:20 | XMS_ITS | Encounter Summary ---
Author Organization [facility] [place] [address] Care Team Providers Care Senior Investigator Name Role Phone AdeelUrbano Primary Care Provider Encounter Details Date Type Department Care Team (Late st Contact Info) Description 03/14/2021 Telephone [place] [address] Elsi Hernandez Social History Tobacco [...] AM EST TH Visit (TeleHealth) Cardiology at [address] [phone] Byron Brown MD [facility] [place] [address] 07/14/2024 10:00 AM EST Hospital Encounter Non-Invasive [place] [address] Arrived documented as of this encounter Goals [...] filedocumented in this encounter Care Teams Senior Investigator Relationship Specialty Start Date End Date Urbano Denis DO [address] [place] [address] [address] [place] [address] PCP - General 09/03/12 03/17/22 Ruchi Valles RN Nurse Clinic Transplant Surgery 07/30/15 documented as of this encounter
--- OUTSIDE RECORDS SUMMARY | 2024-05-16 17:20 | XMS_ITS | Encounter Summary ---
Author Organization [facility] [place] [address] Care Team Providers Care Back Roll Lathe Operator Name Role Phone AdeelUrbano toscano Primary Care Provider [phone] Encounter Details Date Type Department Care Team (Late st Contact Info) Description 02/25/2021 9:15 PM EDT Ancillary Procedure Radiology Library at [facility] [place] [phone] Sonia Stewart MD [facility] [place] [address] Social History Tobacco Use Types Packs/Day Years [...] 11:00 AM EST Visit (TeleHealth) Cardiology at [address] [place] [phone] Byron Brown MD [facility] [place] [address] 07/14/2024 10:00 AM EST Hospital Encounter Non-Invasive [place] [address] Arrived documented as of this encounter Goals Goal Patient Goal Type Associated Problems Recent Progress Patient-Stated? Author [facility] Medication Compliance and Understanding Patient Facing [...] Stewart MD IMG FILM LIBRARY ORD ERABLES [place], [place] documented in this encounter Visit Diagnoses Not on filedocumented in this encounter Care Teams Back Roll Lathe Operator Relationship Specialty Start Date End Date Urbano Denis DO [address] [place] [address] PCP - General 09/03/12 03/17/22 Ruchi Valles RN Nurse Clinic Transplant Surgery 07/30/15 documented as of this encounter
--- OUTSIDE RECORDS SUMMARY | 2024-05-16 17:20 | XMS_ITS | Encounter Summary ---
Author Organization [place] [id number] Care Team Providers Care Statistical Geneticist Name Role Phone Adeel Urbano KIRBY Primary Care Provider Encounter Details Date Type Department Care Team (Late st Contact Info) Description 03/15/2021 Telephone Cardiology at [address] [phone] Monica Roberson, RN Social History [...] BID Monica Roberson RN Cardiology Clinic at [facility] [address] documented in this encounter Plan of Treatment Upcoming Encounters Date Type Department Care Team (Late st Contact Info) Description 06/22/2024 11:00 AM EST TH Visit (TeleHealth) Cardiology at [address] [phone] Byron Brown MD [facility] [place] [address] 07/14/2024 10:00 AM EST Hospital Encounter Non-[place]vasive [place] [address] Arrived documented as of this [...] on filedocumented in this encounter Care Teams Statistical Geneticist Relationship Specialty Start Date End Date Urbano Denis DO [address] [place] [address] PCP - General 09/03/12 03/17/22 Ruchi Valles RN Nurse Clinic Transplant Surgery 07/30/15 documented as of this encounter
--- OUTSIDE RECORDS SUMMARY | 2024-05-16 17:20 | XMS_ITS | Encounter Summary ---
[place] [address] Care Team Providers Care Dredge Pump Operator Name Role Phone Adeel Urbano KIRBY Primary Care Provider [phone] Reason for Visit * Reason Onset Date Comments Medication Refill 12/27/2020 Encounter Details Date Type Department Care Team (Late st Contact Info) Description 12/27/2020 Refill [place] [address] Marisela Metcalf, RN Social History Tobacco Use [...] pharmacies but is available online. I recommended [facility] as prices are comparable to pharmacy and they offer quick shipping. I left a message for Mara to call back to discuss. documented in this encounter Plan of Treatment Upcoming Encounters Date Type Department Care Team (Late st Contact Info) Description 06/22/2024 11:00 AM EST TH Visit (TeleHealth) Cardiology at [address] [phone] Byron Brown MD [facility] [place] [address] 07/14/2024 10:00 AM EST Hospital Encounter Non-[place] [address] Arrived documented as of this [...] on filedocumented in this encounter Care Teams Dredge Pump Operator Relationship Specialty Start Date End Date Urbano Denis DO [address] [place] [address] [address] [facility] 1 [place] [address] PCP - General 09/03/12 03/17/22 Ruchi Valles RN Nurse Clinic Transplant Surgery 07/30/15 documented as of this encounter
--- OUTSIDE RECORDS SUMMARY | 2024-05-16 17:20 | XMS_ITS | Encounter Summary ---
Author Organization [facility] [place] [address] Care Team Providers Care Supervisor Fireworks Assembly Name Role Phone AdeelUrbano tosacno Primary Care Provider Encounter Details Date Type Department Care Team (Late st Contact Info) Description 03/14/2021 Orders Only [place] [address] Marisela Metcalf RN H/O kidney [...] AM EST TH Visit (TeleHealth) Cardiology at [address] [phone] Byron Brown MD [facility] [address] [place] [place] [phone] 07/14/2024 10:00 AM EST Hospital Encounter Non-[place]vasive [place] [address] Arrived documented as of this [...] documented in this encounter Care Teams Supervisor Fireworks Assembly Relationship Specialty Start Date End Date Urbano Denis DO [address] [place] [address] PCP - General 09/03/12 03/17/22 Ruchi Valles RN Nurse Clinic Transplant Surgery 07/30/15 documented as of this encounter
--- OUTSIDE RECORDS SUMMARY | 2024-05-16 17:20 | XMS_ITS | Encounter Summary ---
Author Organization [facility] [place] [address] Care Team Providers Care Filtering Machine Tender Name Role Phone Urbano Denis DO Primary Care Provider [phone] Encounter Details Date Type Department Care Team (Late st Contact Info) Description 12/20/2020 11:45 AM EDT Laboratory Appointment Lab [address] [place] [address] Social History Tobacco Use [...] AM EST TH Visit (TeleHealth) Cardiology at [address] [address] Byron Brown MD [facility] [place] [address] 07/14/2024 10:00 AM EST Hospital Encounter Non-[place] [address] Arrived documented as of [...] (12/20/2020 12:13 PM EDT) Tacrolimus 6.0 ng/mL [facility] Comment: Please be advised that as of 07/10/2020 the methodology for tacrolimus testing has changed from a liquid chromatography tandem mass spectrometry platform to an electrochemiluminescence immunoassay format. Blood Venous Draw / Unknown 12/20/2020 12:13 PM EDT 12/20/2020 12:24 PM EDT Narrative Resulting Agency Comment Spec In Lab Tal Kessler Daily CHEMISTRY ORDERABLES [facility] [place] [address] * Uric acid (12/20/2020 12:13 PM EDT) Uric Acid 6.5 3.5 - 8.5 mg/dL [facility] Blood Venous Draw / Unknown 12/20/2020 12:13 PM EDT 12/20/2020 12:24 PM EDT Narrative Resulting Agency Comment Spec In Lab Tal Kessler Daily CHEMISTRY ORDERABLES Performing Organization Address City/[facility] Co de Phone Number [facility] [place] [address] * Magnesium (12/20/2020 12:13 PM EDT) Magnesium 0.72 0.69 - 1.07 mmol/L [facility] Blood Venous Draw / Unknown 12/20/2020 12:13 PM EDT 12/20/2020 12:24 PM EDT Narrative Resulting Agency Comment Spec In Lab Tal Kessler Daily CHEMISTRY ORDERABLES Performing Organization Address City/[facility]/ZIP Co de Phone Number [facility] [place] [address] * Cholesterol, total (12/20/2020 12:13 PM EDT) Cholesterol, Total 83 mg/dL [facility] Comment: Lower Risk: <200 mg/dL Average Risk: 200-239 mg/dL Higher Risk: >pi=461 mg/dL Lipid Interpretation See Note [facility] Comment: Lipid management should be guided by a patient? s ASCVD risk, goals and preferences. ACC/AHA Guidelines recommend high intensity statin if clinical ASCVD or LDL greater than or equal to 190 mg/dL. http://tinyurl.com/KJR-PSP-Rqjzhvukc Adults aged 40-75 with LDL 70-189 mg/dL should have their 10 year ASCVD risk estimated with the ACC/AHA ASCVD risk lumber estimator http://tools.acc.org/WVQWY-Orvi-Eaygjlwyg/ Statin should be discussed if risk greater [...] Kessler Daily CHEMISTRY ORDERABLES Performing Organization Address City/State/[facility] Co de Phone Number [facility] [place] [address] * (ABNORMAL) Comprehensive metabolic panel (non-fasting) (12/20/2020 12:13 PM EDT) Glucose 144 65 - 199 mg/dL [facility] Comment:Diabetes: >=200 mg/d L plus symptoms Blood Urea Nitrogen 16 10 - 20 mg/dL [facility] Creatinine 1.34 0.80 - 1.50 mg/dL [facility] Sodium 142 135 - 145 mmol/L [facility] Potassium 4.2 3.5 - 5.0 mmol/L [facility] [...] mg/dL [facility] Protein, Total 7.1 6.1 - 8.0 gm/dL [facility] Albumin 4.2 3.2 - 5.2 gm/dL [facility] Aspartate Aminotransferase 24 0 - 39 unit/L [facility] Alanine Aminotransferase 23 0 - 55 unit/L [facility] Alkaline Phosphatase 82 40 - 130 unit/L [facility] Bilirubin, Total 2.6(H) 0.2 - 1.3 mg/dL [facility] Est Glomerular Filtration Rate 53(L) >=60 mL/min/1. 73 m?? [facility] Comment: This patient? s estimated [...] In Lab Tal Kessler Daily CHEMISTRY ORDERABLES [facility] [place] [address] * Differential, Automated (12/20/2020 12:13 PM EDT) Neutrophil % 66.9 % [facility] Neutrophil Absolute 5.53 1.70 - 6.10 x10(3)/mcL [facility] Lymph % 20.6 % [facility] Lymphocytes Abs 1.7 0.9 - 3.2 x10(3)/[facility] Monocyte % 7.9 % [facility] Monocyte Abs 0.6 0.3 - 0.9 x10(3)/[facility] Eos % 3.6 % [facility] Eosinophils Abs 0.3 0.0 - 0.4 x10(3)/[facility] Basophil % 0.8 % [facility] Baso Absolute 0.1 0.0 - 0.1 x10(3)/[facility] Immature Gran % 0.20 % ST [...] - 0.04 x10(3)/[facility] Blood Venous Draw / Unknown 12/20/2020 12:13 PM EDT 12/20/2020 12:24 PM EDT Narrative Resulting Agency Comment Spec In Lab Tal Quesada MD HEMATOLOGY ORDERABLE S Performing Organization Address City/[facility] Co de Phone Number [facility] [place] [address] * Phosphorus (12/20/2020 12:13 PM EDT) Phosphorus 2.6 2.5 - 4.5 mg/dL [facility] Blood Venous Draw / Unknown 12/20/2020 12:13 PM EDT 12/20/2020 12:24 PM EDT Narrative Resulting Agency Comment Spec In Lab Tal Quesada MD CHEMISTRY ORDERABLES Performing Organization Address City/[facility]/ZIP Co de Phone Number [facility] [place] [address] * Hemogram (12/20/2020 12:13 PM EDT) White Blood Cell 8.3 4.0 - 9.5 x10(3)/[facility] Red Blood Cell 4.94 4.58 - 5.54 x10(6)/[facility] Hemoglobin 15.2 13.7 - 16.5 gm/dL [facility] Hematocrit 44.6 40.5 - 48.5 % [facility] Mean Cell Volume 90.3 82.9 - 93.[address] [facility] Mean Cell Hemoglobin 30.8 27.5 - 32.[address] [facility] Mean Cell Hemoglobin Concentration 34.1 32.0 - 35.7 gm/dL [facility] Platelet 251 145 - 357 x10(3)/[facility] RDW Standard Deviation 41.9 36.0 - 45.0 [facility] RDW coefficient of variation 13.0 11.4 - 13.8 % [facility] Mean Platelet Volume 9.7 7.6 - 12.9 [facility] NRBC% auto 0.0 % [facility] NRBC Absolute 0.000 0.000 - 0.000 x10(3)/[facility] Blood Venous Draw / Unknown 12/20/2020 12:13 PM EDT 12/20/2020 12:24 PM EDT Narrative Resulting Agency Comment Spec In Lab Tal Quesada MD HEMATOLOGY ORDERABLE S [facility] [place] [address] * (ABNORMAL) Protein/Creatinine Ratio, urine (12/20/2020 12:07 PM EDT) Creatinine, Urine 93 mg/dL [facility] Protein, Urine 131(H) 0 - 12 mg/dL [facility] Protein / Creatinine Ratio, Urine 1.[address] [facility] Urine Urine / Unknown 12/20/2020 1 2:07 PM EDT 12/20/2020 12:31 PM EDT Narrative Resulting Agency Comment Spec In Lab Tal Quesada MD URINE ORDERABLES [facility] [place] [address] * (ABNORMAL) _Urinalysis with microscopic (12/20/2020 12:07 PM EDT) Glucose, Urine Dipstick Negative Negative mg/dL [facility] Protein, Urine Dipstick >=300(A) Negative mg/dL [facility] Bilirubin, [...] Clear Clear [facility] Specific Walker Urine Automated 1.021 1.005 - 1.030 [facility] Color, Urine Dipstick Yellow Yellow [facility] RBC, Urine 5(H) 0 - 3 /HPF [facility] WBC, Urine 0 0 - 3 /HPF [facility] Urine Urine / Unknown 12/20/2020 1 2:07 PM EDT 12/20/2020 12:31 PM EDT Narrative Resulting Agency Comment Spec In Lab Tal Kessler Daily URINE ORDERABLES [facility] [place] [address] documented in this encounter Visit Diagnoses Not on filedocumented in this encounter Care Teams Filtering Machine Tender Relationship Specialty Start Date End Date Urbano Denis DO [address] [place] [address] PCP - General 09/03/12 03/17/22 Ruchi Valles RN Nurse Clinic Transplant Surgery 07/30/15 documented as of this encounter
--- OUTSIDE RECORDS SUMMARY | 2024-05-16 17:20 | XMS_ITS | Encounter Summary ---
[place] [address] Care Team Providers Care Marketing Communications Associate Name Role Phone Adeel, Urbano KIRBY Primary Care Provider [phone] Reason for Referral * Consultation (Routine) - Closed Specialty Diagnoses / Procedures Referred By Contac t Referred To Contact Neurology Diagnoses Cerebrovascular accident (CVA), unspecified mechanism Byron Brown MD [facility] [place] [address] Joseph Cortés MD [facility] [address] Referral ID Status Reason Start Date Expiration Date V isits Requested Visits Authorized [id number] Closed Consult, Test & Treat 03/14/2021 03/14/2022 1 1 * Diagnostic Test (Routine) - Closed Specialty Diagnoses / Procedures Referred By Contac t Referred To Contact Cardiology Diagnoses Atrial fibrillation with RVR Procedures Ziopatch 48 Hrs-15 Days Byron Brown MD [facility] [place] [address] [facility] [place] [address] Referral ID Status Reason Start Date Expiration Date V isits Requested Visits Authorized [id number] Closed Specialty Service Requested 03/15/2021 05/13/2021 1 1 Encounter Details Date Type Department Care Team (Late st Contact Info) Description 03/14/2021 2:40 PM EDT Office Visit Cardiology at [address] [address] Byron Brown MD [facility] [place] [address] Atrial fibrillation with RVR - had flutter [...] from the original note were not included. [facility] [place] [address] CARDIOLOGY/ VASCULAR OUTPATIENT NOTE Ethel P Tubiello Urbano Adeel, DO OFFICE VISIT : From the recent phone call to [facility] (02/2021): 70 yo male with hx kidney transplant in 2016, atrial fibrillation/flutter, and CAD s/p PCI (2018) who was recently admitted to [facility] with a brain bleed. We do not have records of this. Pt's is calling saying that he was discharged on Thursday at which time eliquis and aspirin werestopped and his BP regimen was changed around. Today BP was 138/101 about 1 hour after giving hydralazine (started at [facility]) for bleed. Called [facility] who instructed her to repeat [...] significant cardiac history but was admitted to [facility] in January 2019 with newly diagnosed AFlutter [...] kidney transplant in 2016. ? Admitted to [facility] in January 2019 with newly diagnosed AFlutter [...] in -follow-up with neuro Byron Brown MD, [facility] Cardiovascular Medicine [facility] Clinic scheduling: Trinidad John [phone] Clinic Team Nurse: Anel Proctor RN [phone] The total time associated with this visit was 40 minutes. documented in this encounter Plan of Treatment Upcoming Encounters Date Type Department Care Team (Late st Contact Info) Description 06/22/2024 11:00 AM EST Visit (TeleHealth) Cardiology at [address] [phone] Byron Brown MD [facility] [place] [address] 07/14/2024 10:00 AM EST Hospital Encounter Non[place] [phone] Arrived Scheduled Referrals Name Type Priority Associated [...] Modality Other Narrative 04/03/2021 10:27 AM EDT [facility] ? Ambulatory Cardiac Event Monitor Report Duration of recordind 23h Summary Data Predominant rhythm: Predominant underlying rhythm was Sinus Rhythm. Minimum sinus rate: 41 bpm ?? Maximum sinus rate: 82 bpm ? Average heart rate: 57 bpm Atrial fibrillation: ? None Pauses: ? None Ectopic beats Isolated SVEs were frequent (6.6%, 09200), SVE Couplets were rare (<1.0%, 4420), and [...] (Bezet) 450 ms MUSE SYSTEM Calculated P [place] 69 degrees MUSE SYSTEM Calculated R [place] -69 degrees MUSE SYSTEM Calculated T [place] 82 degrees MUSE SYSTEM INTERPRETATION Sinus rhythm [...] fibrillation documented in this encounter Care Teams Marketing Communications Associate Relationship Specialty Start Date End Date Urbano Deins DO [address] [place] [address] PCP - General 09/03/12 03/17/22 Ruchi Valles RN Nurse Clinic Transplant Surgery 07/30/15 documented as of this encounter
--- OUTSIDE RECORDS SUMMARY | 2024-05-16 17:20 | XMS_ITS | Encounter Summary ---
Author Organization [facility] Address [facility] [place] [address] Care Team Providers Care Roll Up Helper Name Role Phone AdeelUrbano toscano Primary Care Provider [phone] Reason for Visit * Reason Onset Date Comments Medication Refill 08/16/2021 Encounter Details Date Type Department Care Team (Late st Contact Info) Description 08/16/2021 Refill Solid [place] [phone] Tal Eagle MD [facility] [place] [address] H/O kidney transplant; Vitamin D deficiency; retirement current use of immunosuppressive drug Social History [...] EST TH Visit (TeleHealth) Cardiology at [address] [phone] Byron Brown MD [facility] [place] [address] 07/14/2024 10:00 AM EST Hospital Encounter Non-[place] [address] Arrived Scheduled Orders Name Type Priority Associated Diagnoses Orde r Schedule Transplant: Yearly lab request - External Results Lab Routine H/O kidney transplant Vitamin D deficiency 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 Expected: 08/16/2021, [...] Vitamin D deficiency Unspecified vitamin D deficiency retirement current use of immunosuppressive drug documented in this encounter Care Teams Roll Up Helper Relationship Specialty Start Date End Date Urbano Denis DO [address] [place] [address] PCP - General 09/03/12 03/17/22 Ruchi Valles RN Nurse Clinic Transplant Surgery 07/30/15 documented as of this encounter
--- OUTSIDE RECORDS SUMMARY | 2024-05-16 17:20 | XMS_ITS | Encounter Summary ---
Author Organization [facility] [place] [address] Care Team Providers Care Rn Urgent Care Name Role Phone Urbano Denis DO Primary Care Provider Encounter Details Date Type Department Care Team (Late st Contact Info) Description 02/26/2021 Ancillary Procedure Radiology Library at [facility] [place] [address] Urbano Denis DO [address] [place], [place] [address] Social History Tobacco Use Types Packs/Day Years [...] 11:00 AM EST Visit (TeleHealth) Cardiology at [address] [place] [phone] Byron Brown MD [facility] [address] 07/14/2024 10:00 AM EST Hospital Encounter Non-Invasive [place] [address] Arrived documented as of this encounter Goals [...] Denis DO Danielle [employer]M LIBRARY ORD ERABLES [place], [place] documented in this encounter Visit Diagnoses Not on filedocumented in this encounter Care Teams Rn Urgent Care Relationship Specialty Start Date End Date Urbano Denis DO [address] [place] [address] PCP - General 09/03/12 03/17/22 Ruchi Valles RN Nurse Clinic Transplant Surgery 07/30/15 documented as of this encounter
--- OUTSIDE RECORDS SUMMARY | 2024-05-16 17:20 | XMS_ITS | Encounter Summary ---
Author Organization [facility] [place] [address] Care Team Providers Care Station Cashier Name Role Phone Urbano Denis DO Primary Care Provider [phone] Encounter Details Date Type Department Care Team (Late st Contact Info) Description 10/08/2020 11:40 AM EDT Office Visit [place] [phone] Dietary counseling and surveillance Social History Tobacco [...] post-transplant nurse coordinator, Marisela Metcalf, RN informed jingle writer pt's , Mararequesting to speak to jingle writer about encounter with pt. Caught Mara up to speed on jingle writer's visit with Yash, concerning increasing weight and HgbA1c trends over recent years. Maar appreciative of update, stating she will help Yash embark on nutrition-related goals set forth. Post-Transplant Follow-up Nutrition Note: Objective: Cody Bolden, 70 y.o. male, presents to transplant clinic today for [id number]. Industrial Technology Education Teacher following up with patient today concerning increasing [...] 2 diabetes mellitus ??? Weight increase 08/12/2016 [place] [facility] Diagnosis: Transplant date: 09/16/15 Nutritional [...] absence of KPhos supplements (previously discussed by jingle writer in Aug 2020). Yash provides the following diet recall: Breakfast: 2 cups coffee with stevia, kiswahili muffin, almond milk yogurt + blueberry smoothie [...] encounter on 10/08/20: 105.2 kg (232 lb). [place] Body Weight: 78.2kg %IBW: 135% Adjusted Body [...] good understanding, receptive to suggestions provided by jingle writer. Pt accepted Eating for HealthyBlood Sugars and Weight Control booklet complete with jingle writer's means of contact. Pt plans show wifeMara, and jingle writer offered to review info with Mara [...] EST TH Visit (TeleHealth) Cardiology at [address] [address] Byron Brown MD [facility] [place] [address] 07/14/2024 10:00 AM EST Hospital Encounter Non-[place] [address] Arrived documented as of this encounter Goals Goal Patient Goal Type Associated Problems Recent Progress Patient-Stated? Author DH Home Medication Compliance and Understanding Patient Facing Action Plan On track( 017 10:41 AM EDT) No Selena Cisneros [facility] Note: Patient Goal: Clear hepatitis C Timeframe to meet goal: within 12 weeks of therapy documented as of this encounter Visit Diagnoses Diagnosis Dietary counseling and surveillance Dietary surveillance and counseling documented in this encounter Care Teams Station Cashier Relationship Specialty Start Date End Date Urbano Denis DO [address] [place] [address] PCP - General 09/03/12 03/17/22 Hai STANLEY,Ruchi Nurse Clinic Transplant Surgery 07/30/15 documented as of this encounter
--- OUTSIDE RECORDS SUMMARY | 2024-05-16 17:20 | XMS_ITS | Encounter Summary ---
Author Organization Formerly [facility] [place] [address] Care Team Providers Care Supervisor Sulfuric Acid Plant Name Role Phone Urbano Denis DO Primary Care Provider [phone] Encounter Details Date Type Department Care Team (Latest Contact Info) Description 03/14/2021 2:00 PM EDT Laboratory Appointment Lab [address] [place] [address] H/O kidney transplant Social History [...] EST TH Visit (TeleHealth) Cardiology at [address] [address] Byron Brown MD [facility] [place] [place] [address] 07/14/2024 10:00 AM EST Hospital Encounter Non-[place] [address] Arrived documented as of this [...] RBC, Urine 2 0 - 3 /HPF [facility] WBC, Urine 1 0 - 3 /HPF [facility] Granular Casts, Urine <1(H) <=0 /LPF [facility] Calcium Oxalate Crystal, Urine Moderate(A ) None /HPF [facility] Clean Catch Urine 03/14/2021 2:57 PM EDT 03/14/2021 3:33 PM EDT Narrative Resulting Agency Comment Spec In Lab Tal Eagle MD URINE ORDERABLES [facility] [place] [address] * (ABNORMAL) Urinalysis with reflex Culture (03/14/2021 [...] Dipstick Negative Negative [facility] Appearance, Urine Dipstick Clear Clear [facility] Specific Leivasy Urine Automated 1.022 1.005 - 1.030 [facility] Color, Urine Dipstick Dark Yellow Yellow [facility] Reflex to Culture No [facility] Clean Catch Urine 03/14/2021 2:57 PM EDT 03/14/2021 3:33 PM EDT Narrative Resulting Agency Comment Spec In Lab Tal Eagle MD URINE ORDERABLES Performing Organization Address [facility] Co de Phone Number [facility] [place] [address] * (ABNORMAL) Protein/Creatinine Ratio, urine (03/14/2021 2:57 PM EDT) Creatinine, Urine 156 mg/dL [facility] Protein, Urine 73(H) 0 - 12 mg/dL [facility] Protein / Creatinine Ratio, Urine 0.5 ratio [facility] Urine 03/14/2021 2:57 PM EDT 03/14/2021 3:33 PM EDT Narrative Resulting Agency Comment Spec In Lab Tal Eagle MD URINE ORDERABLES Performing Organization Address City/[facility]/ZIP Co de Phone Number [facility] [place] [address] * (ABNORMAL) Differential, Automated (03/14/2021 2:50 PM EDT) Neutrophil % 68.0 % [facility] Neutrophil Absolute 6.24(H) 1.70 - 6.10 x10(3)/mc L [facility] Lymph % 17.6 % [facility] Lymphocytes Abs 1.6 0.9 - 3.2 x10(3)/mc L [facility] Monocyte % 9.4 % [facility] Monocyte Abs 0.9 0.3 - 0.9 x10(3)/[facility] Eos % 3.6 % [facility] Eosinophils Abs 0.3 0.0 - 0.4 x10(3)/[facility] Basophil % 0.5 % [facility] Baso Absolute 0.0 0.0 - 0.1 x10(3)/[facility] Immature Gran % 0.90 % [facility] Comment: Immature granulocytes(IG's)percentage and absolute count will include metamyelocytes, myelocytes, and promyelocytes. Blood smears from CBCs yielding IG's will be scanned manually for concordance. If this scan disagrees with the automated IG or if promyelocytes are noted, a manual differential will be performed. Immature Gran Absolute 0.08(H) 0.00 - 0.04 x10(3)/[facility] Blood 03/14/2021 2:50 PM EDT 03/14/2021 3:19 PM EDT Narrative Resulting Agency Comment Spec In Lab Tal Eagle MD HEMATOLOGY ORDERA BLES [facility] [place] [address] * Hemogram (03/14/2021 2:50 PM EDT) White Blood Cell 9.2 4.0 - 9.5 x10(3)/[facility] Red Blood Cell 4.94 4.58 - 5.54 x10(6)/[facility] Hemoglobin 15.2 13.7 - 16.5 gm/dL [facility] Hematocrit 43.7 40.5 - 48.5 % [facility] Mean Cell Volume 88.5 82.9 - 93.1 fL [facility] Mean Cell Hemoglobin 30.8 27.5 - 32.1 pg [facility] Mean Cell Hemoglobin Concentration 34.8 32.0 - 35.7 gm/dL [facility] Platelet 248 145 - 357 x10(3)/[facility] RDW Standard Deviation 41.2 36.0 - 45.0 [facility] RDW coefficient of variation 12.9 11.4 - 13.8 % [facility] Mean Platelet Volume 9.6 7.6 - 12.9 fL [facility] NRBC% auto 0.0 % [facility] NRBC Absolute 0.000 0.000 - 0.000 x10(3)/[facility] Blood 03/14/2021 2:50 PM EDT 03/14/2021 3:19 PM EDT Narrative Resulting Agency Comment Spec In Lab Tal Eagle MD HEMATOLOGY ORDERA BLES Performing Organization Address [facility]/ZIP Co de Phone Number [facility] [place] [address] * Reticulocyte Count (03/14/2021 2:50 PM EDT) Reticulocyte % 1.6 0.7 - 2.6 % [facility] Retic Abs # 0.080 0.030 - 0.120 x10(6)/[facility] Immature Retic% 8.2 0.0 - 15.6 % [facility] Reticulated Hgb 34.7 31.3 - 40.2 pg [facility] Blood 03/14/2021 2:50 PM EDT 03/14/2021 3:19 PM EDT Narrative Resulting Agency Comment Spec In Lab aTl Eagle MD HEMATOLOGY ORDERA BLES Performing Organization Address City/[facility]/ZIP Co de Phone Number [facility] [place] [address] * (ABNORMAL) Comprehensive metabolic panel (non-fasting) (03/14/2021 2:50 PM EDT) Glucose 123 65 - 199 mg/dL [facility] Comment:Diabetes: >=200 mg/d L plus symptoms Blood Urea Nitrogen 22(H) 10 - 20 mg/dL [facility] Creatinine 1.34 0.80 - 1.50 mg/dL [facility] Sodium 134(L) 135 - 145 mmol/L [facility] [...] Chloride 98 98 - 107 mmol/L [facility] Carbon Dioxide 23 22 - 31 mmol/L [facility] Anion Gap 13 5 - 15 mmol/L [facility] Calcium 9.8 8.5 - 10.5 mg/dL [facility] Protein, Total 6.8 6.1 - 8.0 gm/dL [facility] Albumin 3.6 3.2 - 5.2 gm/dL [facility] Aspartate Aminotransferase 15 0 - 39 unit/L [facility] Alanine Aminotransferase 18 0 - 55 unit/L [facility] Alkaline Phosphatase 72 40 - 130 unit/L [facility] Bilirubin, Total 2.3(H) 0.2 - 1.3 mg/dL [facility] Est Glomerular Filtration Rate 53(L) >=60 mL/min/1. 73 m?? [facility] Comment: This patient? s estimated [...] ORDERAB LES [facility] [place] [address] * Cholesterol, total (03/14/2021 2:50 PM EDT) Pathologist [facility] Cholesterol, Total 95 mg/dL [facility] Comment: Lower Risk: <200 mg/dL Average Risk: 200-239 mg/dL Higher Risk: >md=165 mg/dL Lipid Interpretation See Note [facility] Comment: Lipid management should be guided by a patient? s ASCVD risk, goals and preferences. ACC/AHA Guidelines recommend high intensity statin if clinical ASCVD or LDL greater than or equal to 190 mg/dL. http://Unight.com/SVC-VIT-Mcuazszdp Adults aged 40-75 with LDL 70-189 mg/dL should have their 10 year ASCVD risk estimated with the ACC/AHA ASCVD risk rate examiner http://tools.acc.org/XXCNW-Bwkk-Grchqxiwd/ Statin should be discussed if risk greater [...] ORDERAB LES [facility] [place] [address] * Magnesium (03/14/2021 2:50 PM EDT) Magnesium 0.76 0.69 - 1.07 mmol/L [facility] Blood 03/14/2021 2:50 PM EDT 03/14/2021 3:19 PM EDT Narrative Resulting Agency Comment Spec In Lab Tal Eagle MD CHEMISTRY ORDERAB LES Performing Organization Address City/[facility]/ZIP Co de Phone Number [facility] [place] [address] * Phosphorus (03/14/2021 2:50 PM EDT) Phosphorus 3.1 2.5 - 4.5 mg/dL [facility] Blood 03/14/2021 2:50 PM EDT 03/14/2021 3:19 PM EDT Narrative Resulting Agency Comment Spec In Lab Tal Eagle MD CHEMISTRY ORDERAB LES Performing Organization Address City/[facility]/ZIP Co de Phone Number [facility] [place] [address] * Uric acid (03/14/2021 2:50 PM EDT) Uric Acid 6.1 3.5 - 8.5 mg/dL [facility] Blood 03/14/2021 2:50 PM EDT 03/14/2021 3:19 PM EDT Narrative Resulting Agency Comment Spec In Lab Tal Eagle MD CHEMISTRY ORDERAB LES [facility] [place] [address] * Tacrolimus level (03/14/2021 2:50 PM EDT) Tacrolimus 5.5 ng/mL [facility] [...] ORDERAB LES [facility] [place] [address] * BKV Quant Blood (03/14/2021 2:50 PM EDT) [facility] BKV Blood Result Not Detected [facility] BKV Blood Interp BK Virus Plasma Result Interpretation Result: BK Virus not detected Specimen type: plasma Assay Range: 2.80-7.80 log copies/mL (6.28x10^2 - 6.28x10^7 copies/mL) Methods: Quantitative real-time polymerase chain reaction (PCR) of viral DNA isolated from plasma was performed using [employer] BKV analyte-specific reagents and the InstantLuxe System that automates both nucleic acid isolation [...] [employer] ([employer]) Laboratory at [facility]. It has not been cleared or approved by the FDA. The laboratory is regulated under CLIA as qualified to perform high-complexity testing. This test is used for clinical purposes. It should not be regarded as investigational or for research. [facility] Comment: [VERIFIED DATE]03.28.21 Verified By:Bev Hughes (Electronic Signature) Blood 03/14/2021 2:50 PM EDT 03/15/2021 6:19 AM EDT Narrative Resulting Agency Comment Spec In Lab Tal Eagle MD MOLECULAR ORDERAB LES [facility] [address] documented in this encounter Visit Diagnoses Diagnosis H/O kidney transplant Kidney replaced by transplant documented in this encounter Care Teams Supervisor Sulfuric Acid Plant Relationship Specialty Start Date End Date Urbano Denis DO [address] [place] [address] PCP - General 09/03/12 03/17/22 Ruchi [place]es RN Nurse Clinic Transplant Surgery 07/30/15 documented as of this encounter
--- OUTSIDE RECORDS SUMMARY | 2024-05-16 17:20 | XMS_ITS | Encounter Summary ---
Author Organization [facility] [place] [address] Care Team Providers Care Radiation Control Health Physicist Name Role Phone Urbano Denis DO Primary Care Provider + [phone] Encounter Details Date Type Department Care Team (Late st Contact Info) Description 02/25/2021 Telephone Solid [place] [address] Radha Espinoza, CUTTER GRINDER OPERATOR [facility] [place] [address] Social History Tobacco Use Types Packs/Day Years [...] took him to express care at [facility] on Thursday. He was tested for COVID and it was negative. No fever. I have faxed a request to [facility] for labs results and urgent care notes. documented in this encounter Plan of Treatment Upcoming Encounters Date Type Department Care Team (Late st Contact Info) Description 06/22/2024 11:00 AM EST Visit (TeleHealth) Cardiology at [address] [phone] Byron Brown MD [facility] [place] [address] 07/14/2024 10:00 AM EST Hospital Encounter Non-[place] [phone] Arrived documented as of this encounter Goals Goal Patient Goal Type Associated Problems Recent Progress Patient-Stated? Author [facility] Medication Compliance and Understanding Patient Facing Action Plan On track( 017 10:41 AM EDT) No Selena Cisneros, [facility] Note: Patient Goal: Clear hepatitis C Timeframe to meet goal: within 12 weeks of therapy documented as of this encounter Visit Diagnoses Not on filedocumented in this encounter Care Teams Radiation Control Health Physicist Relationship Specialty Start Date End Date Urbano Denis DO [address] [place] [address] PCP - General 09/03/12 03/17/22 Hai STANLEY,Ruchi Nurse Clinic Transplant Surgery 07/30/15 documented as of this encounter
--- OUTSIDE RECORDS SUMMARY | 2024-05-16 17:20 | XMS_ITS | Encounter Summary ---
Author Organization [facility] [place] [address] Care Team Providers Care Line Haul Truck Driver Name Role Phone AdeelUrbano toscano Primary Care Provider [phone] Encounter Details Date Type Department Care Team (Late st Contact Info) Description 04/04/2021 7:35 PM EDT Ancillary Procedure Radiology Library at [facility] [place] [address] Byron Brown MD [facility] [place] [address] Social History Tobacco Use Types Packs/Day Years [...] 11:00 AM EST Visit (TeleHealth) Cardiology at [address] [place] [address] Byron Brown MD [facility] [place] [address] 07/14/2024 10:00 AM EST Hospital Encounter Non-Invasive [place] [address] Arrived documented as of this encounter Goals [...] & Pelvis (04/04/2021 7:32 PM EDT) Narrative [facility] - 04/04/2021 7:32 PM EDT This exam is auto-finalizing. It's purpose is for storage only. Byron Brown MD IMG FILM LIBRARY OR DERABLES [place], [place] documented in this encounter Visit Diagnoses Not on filedocumented in this encounter Care Teams Line Haul Truck Driver Relationship Specialty Start Date End Date Urbano Denis DO [address] [place] [address] PCP - General 09/03/12 03/17/22 Ruchi Valles RN Nurse Clinic Transplant Surgery 07/30/15 documented as of this encounter
--- OUTSIDE RECORDS SUMMARY | 2024-05-16 17:20 | XMS_ITS | Encounter Summary ---
Author Organization [facility] [place] [address] Care Team Providers Care Lumber Sorter Machine Name Role Phone Urbano Denis DO Primary Care Provider [phone] Encounter Details Date Type Department Care Team (Latest Contact Info) Description 06/19/2021 11:05 AM EST Laboratory Appointment Lab [address] [place] [address] H/O kidney transplant Social History [...] EST TH Visit (TeleHealth) Cardiology at [address] [address] Byron Brown MD [facility] [address] [place], [place] [id number] 07/14/2024 10:00 AM EST Hospital Encounter Non-[place]vasive [place] [address] Arrived documented as of [...] 11:27 AM EST) Neutrophil % 68.2 % [facility] Neutrophil Absolute 5.47 1.70 - 6.10 x10(3)/[facility] LABORAT[facility] Lymph % 19.1 % [facility] Lymphocytes Abs 1.5 0.9 - 3.2 x10(3)/[facility] LABORATORY Monocyte % 8.2 % [facility] Monocyte Abs 0.7 0.3 - 0.9 x10(3)/[facility] LABORATORY Eos % 3.4 % [facility] Eosinophils Abs 0.3 0.0 - 0.4 x10(3)/[facility] LABORATORY Basophil % 0.9 % [facility] Baso Absolute 0.1 0.0 - 0.1 x10(3)/[facility] LABORATORY Immature Gran % 0.20 % [facility] [...] - 0.04 x10(3)/[facility] LABORATORY Blood 06/19/2021 11:2 7 AM EST 06/19/2021 11:42 AM EST Narrative Resulting Agency Comment Spec In Lab Tal Eagle MD HEMATOLOGY ORDERA BLES [facility] [place] [address] * Hemogram (06/19/2021 11:27 AM EST) Pathologist [facility] White Blood Cell 8.0 4.0 - 9.5 x10(3)/[facility] LABORATORY Red Blood Cell 5.11 4.58 - 5.54 x10(6)/[facility]ORY Hemoglobin 15.6 13.7 - 16.5 g/dL [facility] Hematocrit 45.7 40.5 - 48.5 % [facility] Mean Cell Volume 89.4 82.9 - 93.1 fL [facility] Mean Cell Hemoglobin 30.5 27.5 - 32.1 pg [facility] Mean Cell Hemoglobin Concentration 34.1 32.0 - 35.7 g/dL [facility] Platelet 249 145 - 357 x10(3)/[facility] LABORATORY RDW Standard Deviation 41.5 36.0 - 45.0 [facility] LABORATORY RDW coefficient of variation 12.7 11.4 - 13.8 % [facility] Mean Platelet Volume 9.5 7.6 - 12.9 [facility] LABORATORY NRBC% auto 0.0 % [facility] NRBC Absolute 0.000 0.000 - 0.000 x10(3)/[facility] LABORATORY Blood 06/19/2021 11:2 7 AM EST 06/19/2021 11:42 AM EST Narrative Resulting Agency Comment Spec In Lab Tal Eagle MD HEMATOLOGY ORDERA BLES [facility] [place] [address] * Reticulocyte Count (06/19/2021 11:27 AM EST) Pathologist [facility] Reticulocyte % 2.0 0.7 - 2.6 % [facility] Retic Abs # 0.100 0.030 - 0.120 x10(6)/[facility] LABORATORY Immature Retic% 7.0 0.0 - 15.6 % [facility] Reticulated Hgb 35.3 31.3 - 40.2 pg [facility] Blood 06/19/2021 11:2 7 AM EST 06/19/2021 11:42 AM EST Narrative Resulting Agency Comment Spec In Lab Tal Eagle MD HEMATOLOGY ORDERA BLES [facility] [place] [address] * (ABNORMAL) Comprehensive metabolic panel (non-fasting) (06/19/2021 11:27 AM EST) Glucose 109 65 - 199 mg/dL [facility] Comment:Diabetes: >=200 mg/d L plus symptoms Blood Urea Nitrogen 23(H) 10 - 20 mg/dL [facility] Creatinine 1.39 0.80 - 1.50 mg/dL [facility] Sodium 142 135 - 145 mmol/L [facility] Potassium 4.4 3.5 - 5.0 mmol/L [facility] Comment: Please note: ??Patients with WBC >100,000 may have falsely elevated Potassium levels. ??For accurate Potassium quantification in these patients send serum separator tube (gold top) for subsequent determinations. ??Contact the Clinical Chemistry Laboratory if there are any questions. Chloride 105 98 - 107 mmol/L [facility] Carbon Dioxide 29 22 - 31 mmol/L [facility] Anion Gap 8 5 - 15 mmol/L [facility] Calcium 10.0 8.5 - 10.5 mg/dL [facility] Protein, Total 6.9 6.1 - 8.0 g/dL [facility] Albumin 4.2 3.2 - 5.2 g/dL [facility] Aspartate Aminotransferase 19 0 - 39 unit/L [facility] Alanine Aminotransferase 22 0 - 55 unit/L [facility] Alkaline Phosphatase 69 40 - 130 unit/L [facility] Bilirubin, Total 2.5(H) 0.2 - 1.3 mg/dL [facility] Est Glomerular Filtration Rate 50(L) >=60 mL/min/1. 73 m?? [facility] Comment: This patient? s estimated [...] CHEMISTRY ORDERAB LES [facility] [place] [address] * Cholesterol, total (06/19/2021 11:27 AM EST) Cholesterol, Total 90 mg/dL [facility] Comment: Lower Risk: <200 mg/dL Average Risk: 200-239 mg/dL Higher Risk: >xg=966 mg/dL Lipid Interpretation See Note [facility] Comment: Lipid management should be guided by a patient? s ASCVD risk, goals and preferences. ACC/AHA Guidelines recommend high intensity statin if clinical ASCVD or LDL greater than or equal to 190 mg/dL. http://[employer].url.com/KLL-GYV-Fbicuqjzo Adults aged 40-75 with LDL 70-189 mg/dL should have their 10 year ASCVD risk estimated with the ACC/AHA ASCVD risk building estimator http://tools.acc.org/JHVKH-Part-Piygnqknj/ Statin should be discussed if risk greater [...] ORDERAB LES Performing Organization Address [facility] Co de Phone Number [facility] [place] [address] * Magnesium (06/19/2021 11:27 AM EST) Magnesium 0.74 0.69 - 1.07 mmol/L [facility] Blood 06/19/2021 11:2 7 AM EST 06/19/2021 11:42 AM EST Narrative Resulting Agency Comment Spec In Lab Tal Eagle MD CHEMISTRY ORDERAB LES Performing Organization Address [facility] de Phone Number [facility] [place] [address] * Phosphorus (06/19/2021 11:27 AM EST) Phosphorus 2.6 2.5 - 4.5 mg/dL [facility] Blood 06/19/2021 11:2 7 AM EST 06/19/2021 11:42 AM EST Narrative Resulting Agency Comment Spec In Lab Tal Eagle MD CHEMISTRY ORDERAB LES Performing Organization Address [facility] Co de Phone Number [facility] [place] [address] * Uric acid (06/19/2021 11:27 AM EST) Uric Acid 6.7 3.5 - 8.5 mg/dL [facility] Blood 06/19/2021 11:2 7 AM EST 06/19/2021 11:42 AM EST Narrative Resulting Agency Comment Spec In Lab Tal Eagle MD CHEMISTRY ORDERAB LES Performing Organization Address City/[facility] Co de Phone Number [facility] [place] [address] * Tacrolimus level (06/19/2021 11:27 AM EST) Pathologist [facility] Tacrolimus 5.0 ng/mL [facility] Comment: Trough [...] ORDERAB LES Performing Organization Address [facility] Co de Phone Number [facility] [place] [address] * BKV Quant Blood (06/19/2021 11:27 AM EST) Pathologist [facility] BKV Blood Result Not Detected [facility] BKV Blood Interp BK Virus Plasma Result Interpretation Result: BK Virus not detected Specimen type: plasma Assay Range: 2.80-7.80 log copies/mL (6.28x10^2 - 6.28x10^7 copies/mL) Methods: Quantitative real-time polymerase chain reaction (PCR) of viral DNA isolated from plasma was performed using [employer] BKV analyte-specific reagents and the [employer] System that automates both nucleic acid isolation [...] its performance characteristics determined by the [facility] [employer] ([employer]) Laboratory at [facility]. It has not been cleared or approved by the FDA. The laboratory is regulated under CLIA as qualified to perform high-complexity testing. This test is used for clinical purposes. It should not be regarded as investigational or for research. [facility] Comment: [VERIFIED DATE]06.27.21 Verified By:Kassi Friedman (Electronic Signature) Blood 06/19/2021 11:2 7 AM EST 06/19/2021 2:04 PM EST Narrative Resulting Agency Comment Spec In Lab Tal Eagle MD MOLECULAR ORDERAB LES Performing Organization Address City/[facility]/ZIP Co de Phone Number [facility] [place] [address] * Urinalysis Microscopic Exam (06/19/2021 11:22 AM EST) Pathologist [facility] RBC, Urine 2 0 - 3 /HPF [facility] WBC, Urine 0 0 - 3 /HPF [facility] Clean Catch Urine 06/19/2021 11:22 AM EST 06/19/2021 12:04 PM EST Narrative Resulting Agency Comment Spec In Lab Tal Eagle MD URINE ORDERABLES Performing Organization Address City/[facility]/ZIP Co de Phone Number [facility] [place] [address] * (ABNORMAL) Urinalysis with reflex Culture (06/19/2021 [...] HOSPITAL LABORATORY Leukocytes, Urine Dipstick Negative Negative [facility] Appearance, Urine Dipstick Clear Clear [facility] Specific Barton Urine Automated 1.023 1.005 - 1.030 [facility] Color, Urine Dipstick Yellow Yellow [facility] Reflex to Culture No [facility] Clean Catch Urine 06/19/2021 11:22 AM EST 06/19/2021 12:04 PM EST Narrative Resulting Agency Comment Spec In Lab Tal Eagle MD URINE ORDERABLES Performing Organization Address City/[facility]/ZIP Co de Phone Number [facility] [place] [address] * (ABNORMAL) Protein/Creatinine Ratio, urine (06/19/2021 11:22 AM EST) Creatinine, Urine 104 mg/dL [facility] Protein, Urine 74(H) 0 - 12 mg/dL [facility] Protein / Creatinine Ratio, Urine 0.7 ratio [facility] Urine 06/19/2021 11:2 2 AM EST 06/19/2021 12:04 PM EST Narrative Resulting Agency Comment Spec In Lab Tal Eagle MD URINE ORDERABLES [facility] [place] [address] documented in this encounter Visit Diagnoses Diagnosis H/O kidney transplant Kidney replaced by transplant documented in this encounter Care Teams Lumber Sorter Machine Relationship Specialty Start Date End Date Urbano Denis DO [address] [place] [address] PCP - General 09/03/12 03/17/22 Ruchi Valles RN Nurse Clinic Transplant Surgery 07/30/15 documented as of this encounter
--- OUTSIDE RECORDS SUMMARY | 2024-05-16 17:20 | XMS_ITS | Encounter Summary ---
Author Organization [facility] Address [facility] [place] [address] Care Team Providers Care Brick Baker Name Role Phone Adeel Urbano KIRBY Primary Care Provider + [phone] Reason for Visit * Consultation (Routine) - Closed Specialty Diagnoses / Procedures Referred By Humberto flor Referred To Contact Neurology Diagnoses Cerebrovascular accident (CVA), unspecified mechanism Byron Brown MD [facility] [place] [address] Joseph Cortés MD [facility] [place] [address] Referral ID Status Reason Start Date Expiration Date V isits Requested Visits Authorized [id number] Closed Consult, Test & Treat 03/14/2021 03/14/2022 1 1 Encounter Details Date Type Department Care Team (Late st Contact Info) Description 06/19/2021 10:00 AM EST [place] [address] Joseph Cortés MD [facility] [place] [address] 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 [...] Disease and Stroke Program Department of Neurology [place] [id number] t: [phone] / f: [phone] Date of Appointment: 06/19/2021 Patient: Cody Bolden PCP: Urbano Denis DO Consultation Requested By: Byron Brown Md [facility] [place] [address] . HISTORY: This 70 y.o. male is evaluated because of a left basal ganglionic hemorrhage in February. Retired at age 53y. 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 Long hx of BP issues. 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 Seen by Dr Loya and then to Dr Lewis at [facility] and had a kidney biopsy and eventually a transplant in 2016. In 2013 PCP suspected stroke and he had an MRI showing multiple lacunes and saw Dr Rebolledo. February 25 [facility] left basal ganglionic ICH and apixaban and aspirin dc. Roll exhausted and then loopy, went [facility] and then to [facility] Thursday. They dont recall BP issues then. Keptfor 4 days and then went home. BP 228/[address] [facility] Rebolledo saw in April and resumed aspirin. Zio no AF. says he DOESN'T have AF. says still a little slower. Handwriting sloppier since. Missed a Cardiology tele visit (forgot). May 03 [facility] for sigmoid diverticulitis with pain near transplant [...] hepatitis) K73.2 ??? Prophylactic immunotherapy Z29.8 ??? [facility] current use of immunosuppressive drug Z79.899 ??? [...] stop taking your medicine? No Stroke:PROMIS-10 06/19/2021 Yswbjx85-Kpieklzv Health Score 57.7 Qcopgn42-Zvznof Health Score 59 Health in general Very [...] lateral tothe caudate head. [facility] [...] providingthis patient's care. This includes time spent [id number] with the patient performing evaluation, examination, and counseling . It also includes non wnpu-af-qnsy time preparing to see the patient, reviewing the chart, coordinating care, and documenting clinical information in the electronic healthrecord. documented in this encounter Plan of Treatment Upcoming Encounters Date Type Department Care Team (Late st Contact Info) Description 06/22/2024 11:00 AM EST TH Visit (TeleHealth) Cardiology at [address] [phone] Byron Brown MD [facility] [place] [place] [address] 07/14/2024 10:00 AM EST Hospital Encounter Non-[place] [address] Arrived Scheduled Referrals Name Type [...] hemisphere documented in this encounter Care Teams Brick Baker Relationship Specialty Start Date End Date Urbano Denis DO [address] [place] [address] PCP - General 09/03/12 03/17/22 Ruchi Valles RN Nurse Clinic Transplant Surgery 07/30/15 documented as of this encounter
--- OUTSIDE RECORDS SUMMARY | 2024-05-16 17:20 | XMS_ITS | Encounter Summary ---
[place] [address] Care Team Providers Care Health Program Director Name Role Phone Urbano Denis DO Primary Care Provider + [phone] Encounter Details Date Type Department Care Team (Late st Contact Info) Description 03/03/2021 Telephone Cardiology at [address] [address] Garry Chaudhary [facility] [place] [address] Social History Tobacco Use Types Packs/Day Years [...] PCI (2019) who was recently admitted to [facility] with a brain bleed. We do not have records of this. Pt's is calling saying that he was discharged on Thursday at which time eliquis and aspirin werestopped and his BP regimen was changed around. Today BP was 138/101 about 1 hour after giving hydralazine (started at [facility]) for bleed. Called [facility] who instructed her to repeat BP [...] 11:00 AM EST Visit (TeleHealth) Cardiology at [address] [phone] Byron Brown MD [facility] [place] [address] 07/14/2024 10:00 AM [facility] Hospital Encounter Non-[place] [phone] Arrived documented as of this encounter Goals [...] filedocumented in this encounter Care Teams Health Program Director Relationship Specialty Start Date End Date Urbano Denis DO [address] [place] [address] [address] [place] [address] PCP - General 09/03/12 03/17/22 Ruchi Valles RN Nurse Clinic Transplant Surgery 07/30/15 documented as of this encounter
--- OUTSIDE RECORDS SUMMARY | 2024-05-16 17:20 | XMS_ITS | Encounter Summary ---
Author Organization [facility] [place] [address] Care Team Providers Care Behavioral Health Assistant Name Role Phone AdeelUrbano boland Primary Care Provider [phone] Reason for Visit * Reason Comments Medication Refill Encounter Details Date Type Department Care Team (Late st Contact Info) Description 01/17/2021 Refill [place] [address] Tal Eagle MD [facility] [place] [address] Social History Tobacco Use Types Packs/Day Years [...] EST TH Visit (TeleHealth) Cardiology at [address] [address] Byron Brown MD [facility] [place] [address] 07/14/2024 10:00 AM [facility] Encounter Non-Invasive [place] [address] Arrived documented as of this [...] on filedocumented in this encounter Care Teams Behavioral Health Assistant Relationship Specialty Start Date End Date Urbano Denis DO [address] [place] [address] [address] [facility] [address] [place] [address] PCP - General 09/03/12 03/17/22 Ruchi Valles RN Nurse Clinic Transplant Surgery 07/30/15 documented as of this encounter
--- OUTSIDE RECORDS SUMMARY | 2024-05-16 17:20 | XMS_ITS | Encounter Summary ---
Author Organization [facility] [place] [address] Care Team Providers Care Silk Soaker Name Role Phone Urbano Denis DO Primary Care Provider Encounter Details Date Type Department Care Team (Late st Contact Info) Description 02/27/2021 Telephone [place] [phone] Marisela Metcalf, RN Social History Tobacco Use [...] Mara reports that Yash was admitted to [facility] on Thursday night after his CT scan showed a brain bleed.He is currently in the ICU for observation but over all doing OK. They are holding his blood thinners for the time being. I asked Mara to keep us updated on aYsh's condition. Once discharged I will request in patient record from [facility] and determine if follow up is needed with Dr. Eagle. All Mara's questions were were answered; no other concerns at this time. documented in this encounter Plan of Treatment Upcoming Encounters Date Type Department Care Team (Late st Contact Info) Description 06/22/2024 11:00 AM EST TH Visit (TeleHealth) Cardiology at [address] [phone] Byron Brown MD [facility] [place] [address] 07/14/2024 10:00 AM EST Hospital Encounter Non-Invasive [place] [phone] Arrived documented as of this encounter Goals Goal Patient Goal Type Associated Problems Recent Progress Patient-Stated? Author DH [place] Medication Compliance and Understanding Patient Facing Action Plan On track( 017 10:41 AM EDT) No Selena Cisneros, [facility] Note: Patient Goal: Clear hepatitis C Timeframe to meet goal: within 12 weeks of therapy documented as of this encounter Visit Diagnoses Not on filedocumented in this encounter Care Teams Silk Soaker Relationship Specialty Start Date End Date Urbano Denis DO [address] [place] [address] PCP - General 09/03/12 03/17/22 Ruchi Valles RN Nurse Clinic Transplant Surgery 07/30/15 documented as of this encounter
--- OUTSIDE RECORDS SUMMARY | 2024-05-16 17:20 | XMS_ITS | Encounter Summary ---
[place] [address] Care Team Providers Care Ordnance Officer Name Role Phone Urbano Denis DO Primary Care Provider [phone] Reason for Referral * Diagnostic Test (Routine) - Closed Specialty Diagnoses / Procedures Referred By Contac t Referred To Contact Cardiology Diagnoses Cardiomyopathy, unspecified type Procedures Echocardiogram Transthoracic([facility]) Byron Brown MD [facility] [place] [address] [facility] [place] [address] Referral ID Status Reason Start Date Expiration Date V isits Requested Visits Authorized [id number] Closed Specialty Service Requested 09/14/2020 09/14/2021 1 1 Reason for Visit * Diagnostic Test (Routine) - Closed Specialty Diagnoses / Procedures Referred By Contac t Referred To Contact Cardiology Diagnoses Cardiomyopathy, unspecified type Procedures Echocardiogram Transthoracic([facility]) Byron Brown MD [facility] [address] [facility] [place] [address] Referral ID Status Reason Start Date Expiration Date V isits Requested Visits Authorized [id number] Closed Specialty Service Requested 09/14/2020 09/14/2021 1 1 Encounter Details Date Type Department Care Team (Late st Contact Info) Description 12/20/2020 12:23 PM EDT - 12/20/2020 11:59 PM EDT Hospital Encounter Non-Invasive Cardiology Lab [facility] [address] Byron Brown MD [facility] [place] [address] Cardiomyopathy, unspecified type Discharge Disposition: Home Social [...] unspecified vessel or lesion type, unspecified whether lumbee or transplanted heart Take 1 tablet by [...] AM EST TH Visit (TeleHealth) Cardiology at [address] [phone] Byron Brown MD [facility] [place] [address] 07/14/2024 10:00 AM EST Hospital Encounter Non-[place] [phone] Arrived documented as of this encounter Goals Goal Patient Goal Type Associated Problems Recent Progress Patient-Stated? Author [facility] Medication Compliance and Understanding Patient Facing [...] PM EDT Procedure: ?Transthoracic Echocardiogram Patient: ?MABLE DAVENPROT P ? (Age): 1950(70y) Med Rec#: ? [id number] ?Sex: ?M ? Site Loc: ? [facility] ?Ht / Wt: ??180(cm)/99.34(k Pt. Loc: ?Echo Lab ?BSA: ?2.19 Study Date: ?? 12/20/2020 ?Pt. Type: Outpatient Tape: ? Referring: Byron Brown ([id number]) Reading: Liseth Calero ([id number]) Journal Entry Audit Clerk: Anali Boudreaux Diagnosis: *Cardiomyopathy, unspecified (I42.9) BP: [...] Vmax ?0.79 ? m/sec ? MV deceleration [id number] ?msec ? MV A-wave Vmax ?0.34 ? [...] ? Mid-Inferior ?Normal ? Mid-Inferoseptal ?Normal ? [place]-Septal ? Normal ? [place]-Anterior ? Normal ? [place]-Lateral ?Normal ? [place]-Inferior ? Normal ? [place]-Tip ?Normal ? This report has been electronically signed by: Liseth Calero MD ? 12/20/2020 16:59:50 Images reviewed and interpretation verified [facility] Cardiac Ultrasound Laboratory Procedure Note Liseth Calero MD - 12/20/2020 Procedure: Transthoracic Echocardiogram Patient: MABLE Gomez (Age): 1950(70y) Med Rec#: [id number] Sex: M Site Loc: [facility] Ht / Wt: 180(cm)/99.34(k Pt. Loc: Echo Lab BSA: 2.19 Study Date: 12/20/2020 Pt. Type: Outpatient Tape: Referring: Byron Brown ([id number]) Reading: Liseth Calero ([id number]) Journal Entry Audit Clerk: Anali Boudreaux Diagnosis: *Cardiomyopathy, unspecified (I42.9) BP: [...] MV E-wave Vmax 0.79 m/sec MV deceleration [id number] msec MV A-wave Vmax 0.34 m/sec MV [...] Normal Mid-Posterolateral Normal Mid-Inferior Normal Mid-Inferoseptal Normal [place]-Septal Normal [place]-Anterior Normal [place]-Lateral Normal [place]-Inferior Normal [place]-Tip Normal This report has been electronically signed by: Liseth Calero MD 12/20/2020 16:59:50 Images reviewed and interpretation verified [facility] Cardiac Ultrasound Laboratory Byron Brown MD ECHO ORDERABLES documented in this encounter Visit Diagnoses Diagnosis Cardiomyopathy, unspecified type documented in this encounter Care Teams Ordnance Officer Relationship Specialty Start Date End Date Urbano Denis DO [address] [place] [address] PCP - General 09/03/12 03/17/22 Ruchi Valles RN Nurse Clinic Transplant Surgery 07/30/15 documented as of this encounter
--- OUTSIDE RECORDS SUMMARY | 2024-05-16 17:20 | XMS_ITS | Encounter Summary ---
Author Organization [facility] [place] [address] Care Team Providers Care Bank Compliance Officer Name Role Phone AdeelUbrano Primary Care Provider [phone] Encounter Details Date Type Department Care Team (Late st Contact Info) Description 03/13/2021 Orders Only Cardiology at [address] [address] Byron Brown MD [facility] [place] [address] Atrial fibrillation with RVR - had flutter [...] as of this encounter Progress Notes * Herilnda Li RN - 03/13/2021 5:41 PM EDT ekg as per protocol documented in this encounter Plan of Treatment Upcoming Encounters Date Type Department Care Team (Late st Contact Info) Description 06/22/2024 11:00 AM EST TH Visit (TeleHealth) Cardiology at [address] [address] Byron Brown MD [facility] [place] [address] 07/14/2024 10:00 AM EST Hospital Encounter Non-[place] [phone] Arrived documented as of this encounter Goals [...] fibrillation documented in this encounter Care Teams Bank Compliance Officer Relationship Specialty Start Date End Date Urbaon Denis DO [address] [place] [address] PCP - General 09/03/12 03/17/22 Ruchi Valles RN Nurse Clinic Transplant Surgery 07/30/15 documented as of this encounter
--- OUTSIDE RECORDS SUMMARY | 2024-05-16 17:20 | XMS_ITS | Encounter Summary ---
Author Organization [facility] [place] [address] Care Team Providers Care Juvenile Justice Officer Name Role Phone Urbano Denis DO Primary Care Provider Encounter Details Date Type Department Care Team (Late st Contact Info) Description 12/26/2020 Notes Only [place] [address] Anabella Bright Social History Tobacco Use Types [...] MG Insurance: [employer]M MEDICARE ADVANTAGE/ANTHEM RX Phone: Robotic Weld Technician: [employer]IA [employer] Reference #: TACRO- REF#[id number] MMF - REF#[id number] Outcome: DENIED UNDER PART D, APPROVED UNDER [...] EST TH Visit (TeleHealth) Cardiology at [address] [address] Byron Brown MD [facility] [place] [address] 07/14/2024 10:00 AM EST Hospital Encounter Non[place] [address] Arrived documented as of this encounter Goals [...] on filedocumented in this encounter Care Teams Juvenile Justice Officer Relationship Specialty Start Date End Date Urbano Denis DO [address] [place] [address] PCP - General 09/03/12 03/17/22 Hai STANLEY,Ruchi Nurse Clinic Transplant Surgery 07/30/15 documented as of this encounter
--- OUTSIDE RECORDS SUMMARY | 2024-05-16 17:20 | XMS_ITS | Encounter Summary ---
Author Organization [facility] [place] [address] Care Team Providers Care Reception Centre Manager Name Role Phone Adeel Urbano KIRBY Primary Care Provider Encounter Details Date Type Department Care Team (Late st Contact Info) Description 02/25/2021 External Results Solid [place] [address] Social History Tobacco Use Types [...] AM EST TH Visit (TeleHealth) Cardiology at [address] [phone] Byron Brown MD [facility] [place] [address] 07/14/2024 10:00 AM EST Hospital Encounter Non-Invasive [place] [address] Arrived documented as of this [...] on filedocumented in this encounter Care Teams Reception Centre Manager Relationship Specialty Start Date End Date Urbano Denis DO [address] [place] [address] PCP - General 09/03/12 03/17/22 Ruchi Valles RN Nurse Clinic Transplant Surgery 07/30/15 documented as of this encounter
--- OUTSIDE RECORDS SUMMARY | 2024-05-16 17:20 | XMS_ITS | Encounter Summary ---
Author Organization [facility] [place] [address] Care Team Providers Care Civil Service Worker Name Role Phone Urbano Denis DO Primary Care Provider [phone] Encounter Details Date Type Department Care Team (Late st Contact Info) Description 03/19/2021 Telephone [place] [address] Marisela Metcalf, RN Social History Tobacco Use [...] Visit (TeleHealth) Cardiology at [address] [address] Byron Brown MD [facility] [place] [address] 07/14/2024 10:00 AM EST Hospital Encounter Non-[place]vasive [place] [address] Arrived documented as of this encounter Goals [...] fibrillation documented in this encounter Care Teams Civil Service Worker Relationship Specialty Start Date End Date Urbano Denis DO [address] [place] [address] [address] [place] [address] PCP - General 09/03/12 03/17/22 Ruchi Valles RN Nurse Clinic Transplant Surgery 07/30/15 documented as of this encounter
--- OUTSIDE RECORDS SUMMARY | 2024-05-16 17:21 | XMS_ITS | Encounter Summary ---
Author Organization [facility] [place] [address] Care Team Providers Care Binder And Wrapper Packer Name Role Phone Adeel Urbano KIRBY Primary Care Provider Encounter Details Date Type Department Care Team (Late st Contact Info) Description 05/08/2020 [place] [phone] Nancy Iqbal Social History Tobacco Use Types [...] with patient Best number to reach caller: [phone] Reason for call: Mara calling with questions [...] 11:00 AM EST Visit (TeleHealth) Cardiology at [address] [address] Byron Brown MD [facility] [place] [address] 07/14/2024 10:00 AM EST Hospital Encounter Non-Invasive [place] [phone] Arrived documented as of this encounter Goals [...] on filedocumented in this encounter Care Teams Binder And Wrapper Packer Relationship Specialty Start Date End Date Urbano Denis DO [address] [place] [address] [address] [place] [address] PCP - General 09/03/12 03/17/22 Hai STANLEY,Ruchi Nurse Clinic Transplant Surgery 07/30/15 documented as of this encounter
--- OUTSIDE RECORDS SUMMARY | 2024-05-16 17:21 | XMS_ITS | Encounter Summary ---
Author Organization [facility] Address [facility] [place] [address] Care Team Providers Care Pallet Assembler Name Role Phone Urbano Denis DO Primary Care Provider [phone] Reason for Visit * Auth/Cert Specialty Diagnoses [...] Expiration Date Visits Re quested Visits Authorized [id number] 1 1 Encounter Details Date Type Department Care Team (Late st Contact Info) Description 05/10/2020 7:30 AM EST - 05/10/2020 10:28 AM EST [place] [phone] Joseph Ang MD [facility] [place] [address] LAMINECTOMY, FACETECTOMY & FORAMINOTOMY,LUMBAR, ONE LEVEL (WRVU [...] decompression with Dr. Bradford but referred to [facility] due anesthesiology concerns and complexity of care [...] Course: On 05/10/2020, Cody Bolden presented to [facility] for the above mentioned procedure which he [...] medications known as antiplatelets and anticoagulants. Common kait-bss-eawolqi medications which should be avoided include Aspirin, [...] retention Constipation not relieved by diet and/or iplb-ycr-twjgulo stool softeners and laxatives Nausea/vomiting (upset stomach) [...] your Primary Care Provider or withthe Neurosurgery PULP PILER/RN. Appointments: Please follow up in the Neurosurgery Clinic in 4-6 weeks. Please call the Neurosurgery Office at [phone] if you do not receive a scheduled appointment within two weeks. Your follow-up appointment will be with: [] Dr. Gomez [x] Dr. Ang [] Dr. Calloway [] Dr. Barrett [] Dr. Gutierrez [] Dr. Stewart [] Dr. Zafar HOW TO REACH NEUROSURGERY Contact your Doctor Office Hours: Thursday through Thursday, 8am-5pm. Call . On weekends or after office hours: Call [phone] and ask the calender roll press operator to page the Neurosurgery Resident store operations associate. IMPORTANT PHONE NUMBERS: Outpatient Nurse (Layla Pond) Inpatient Nurses Neurosurgical Resident On-Call (after 5pm or before 8am) Neurosurgery offices (Thursday through Thursday between 8am-5pm): Adult Neurosurgery Dr. Richard Barrett Pediatric Neurosurgery Dr. Franko Calloway Mid-level practitioners Franko Torres, Physician Machine Adjuster Leader Cristi Diana, Physician Machine Adjuster Leader Yaritza Guzman, Nurse Practitioner Karie Almeida, Nurse Practitioner * Your surgeon may not be call center operations manager, so be ready to tell about yourself [...] medications known as antiplatelets and anticoagulants. Common kjyy-jdc-ihtphui medications which should be avoided include Aspirin, [...] retention Constipation not relieved by diet and/or gemp-voa-rplvpir stool softeners and laxatives Nausea/vomiting (upset stomach) [...] your Primary Care Provider or withthe Neurosurgery PULP PILER/RN. Appointments: Please follow up in the Neurosurgery Clinic in 4-6 weeks. Please call the Neurosurgery Office at [phone] if you do not receive a scheduled [...] unspecified vessel or lesion type, unspecified whether [place] or transplanted heart Take 1 tablet by [...] Plan: - Likely home today PLEASE PAGE [phone] WITH QUESTIONS Active Hospital Problems Diagnosis ??? [...] EST Neurosurgery Pre-operative H&P 05/10/2020 Cody Bolden [id number] 1950 CC: L Leg pain HPI: Cody [...] performed by Que Amaro MD at [facility] OR ??? PRO CYSTOURETHROSCOPY, URETER CATHETER Left 06/17/2018 CYSTO, RETROGRADE, URETEROPYELOGRAPHY (WRVU 2.37) [facility] Edinson [facility]ider III[facility] ??? PRO REIMPLANT URETER, SINGLE URETER Left 05/20/2016 @URETERONEOCYSTOSTOMY ANASTOMOSIS OF SINGLE URETER TO BLADDER performed by Santosh Arredondo MD at [facility] OR ??? PRO REIMPLANT URETER, SINGLE URETER N/A 05/20/2016 @URETERONEOCYSTOSTOMY ANASTOMOSIS OF SINGLE URETER TO BLADDER performed by Que Amaro MD at [facility] OR ??? PRO TOTAL KNEE ARTHROPLASTY Right 11/25/2017 TOTAL KNEE ARTHROPLASTY (WRVU 20.72) performed by Breezy Dale MD at [facility] OR ??? PRO TRANSPLANT, PREP CADAVER RENAL GRAFT N/A 09/16/2015 @PREPARATION CADAVERIC RENAL ALLOGRAFT performed by Franko Larkin MD at [facility] OR ??? PRO TRANSPLANTATION OF KIDNEY N/A 09/16/2015 @KIDNEY TRANSPLANT, WITHOUT RECIPIENT NEPHRECTOMY performed by Franko Larkin MD at [facility] OR ??? TISSUE TRANSFER kidney ??? US RENAL TRANSPLANT LEFT Left 01/31/2019 US Renal Transplant Left 01/31/2019 [facility] RAD ULTRASOUND ??? US RENAL TRANSPLANT LEFT Left 02/07/2019 US Renal Transplant Left 02/07/2019 [facility] RAD ULTRASOUND Medications: No current [...] Ang MD - 05/11/2020 1:46 PM EST [facility] Neurosurgetry Operative Note Patient Name: Cody Bolden : [id number] MR#: [id number] ?? Case Date: 05/10/2020 ?? Surgeon: Surgeon(s) [...] Chair Section of Neurosurgery Department of Surgery [facility] * Plan of Care - Duyen Shoemaker [...] AM EST D/C planning: Team: neurosurg Pager: [phone] Pt to d/c home via private vehicle. Pt/team feel no d/c needs identified at this time. Pt is aware of d/c plan. Shira BELLO, RN CM operations and maintenance supervisor Office of Care Management Pager #[phone] * Initial Assessments - Shira Escalante RN [...] care provider on file: Urbano Denis DO [phone] Advance Directive on file and Code Status: Received, Attempt Cardiopulmonary Resuscitation - Inpatient Patient???s Functional Status:ind with mobility and ADL's Living Situation:lives with in [address] [address] Supports:/family Assessment: Patient with no apparent RNCM/SW needs at this time. No housing, transportation, insurance, resources concerns identified at this time. Supports in place to achieve a safe post-hospital transition. No identified barriers to accessing necessary care and/or follow-up after discharge. Plan: Patient to d/c to home via private vehicle when medically ready. operations and maintenance supervisor/Vascular Manager will continue to follow patient???s progress and remain available if situation changes for coordination of care, psychosocial support and/or discharge planning. Shira Escalante RN Pager [phone] Extension [phone] * Plan of Care - Magdalena Hanna [...] Ang MD - 05/10/2020 10:25 AM EST [facility] Neurosurgery Brief Operative Note Patient Name: Cody Bolden : [id number] MR#: [id number] Case Date: 05/10/2020 Surgeon: Surgeon(s) and Role: [...] AM EST TH Visit (TeleHealth) Cardiology at [address] [address] Byron Brown MD [facility] DR CARDIOLOGY [place], [place] [id number] 07/14/2024 10:00 AM EST Hospital Encounter Non[place] [address] Arrived documented as of this encounter Goals Goal Patient Goal Type Associated Problems Recent Progress Patient-Stated? Author [facility] Medication Compliance and Understanding Patient [...] recess stenosis Microsurg Techniques, Req Oper Microscope ([id number]) 05/10/2020 7:27 AM EST Left L45 radiculopathy bilateral lateral recess stenosis Fluoroscopy Exam Up To 1 Hr Phy Or Oth Hlth Care Prov ([id number]) 05/10/2020 7:27 AM EST Left L45 radiculopathy bilateral lateral recess stenosis Laminotomy, Lumbar Disk, 1 Intrsp ([id number]) 05/10/2020 7:27 AM EST Left L45 radiculopathy bilateral lateral recess stenosis Laminec/Facetect/For wagner, Lumbar 1 Seg (20217) 05/10/2020 7:27 AM EST Left L45 radiculopathy [...] Glucose, POC 205(H) 65 - 199 mg/dL [facility] Comment: Supplemental ranges: <140 mg/dL before meals <180 mg/dL all other times of the day Blood specimen (specimen) 05/11/2020 11:28 AM EST 05/11/2020 11:28 AM EST Joseph Ang MD POINT OF CARE TEST O RDERABLES [facility] [place] [address] * (ABNORMAL) POCT Glucose (05/11/2020 7:18 AM EST) Glucose, POC 222(H) 65 - 199 mg/dL [facility] Comment: Supplemental ranges: <140 mg/dL before meals <180 mg/dL all other times of the day Blood specimen (specimen) 05/11/2020 7:18 AM EST 05/11/2020 7:18 AM EST Joseph Ang MD POINT OF CARE TEST O RDERABG Performing Organization Address [facility] Co de Phone Number [facility] [place] [address] * POCT Glucose (05/10/2020 4:39 PM EST) Glucose, POC 151 65 - 199 mg/dL [facility] Comment: Supplemental ranges: <140 mg/dL before meals <180 mg/dL all other times of the day Blood specimen (specimen) 05/10/2020 4:39 PM EST 05/10/2020 4:39 PM EST Joseph Ang MD POINT OF CARE TEST O TED Performing Organization Address [facility] de Phone Number [facility] [place] [address] * XR Fluoro No Rad <1Hr - OR Use (05/10/2020 12:32 PM EST) Narrative RAD - 05/10/2020 12:33 PM EST This exam is auto-finalizing. No interpretation was done. Joseph Ang MD IMG FLUORO ORDERABLE S Performing Organization Address [facility] Co de Phone Number [place], [place] * (ABNORMAL) POCT Glucose (05/10/2020 10:47 AM EST) Glucose, POC 221(H) 65 - 199 mg/dL [facility] Comment: Supplemental ranges: <140 mg/dL before meals <180 mg/dL all other times of the day Blood specimen (specimen) 05/10/2020 10:47 AM EST 05/10/2020 10:47 AM EST Joseph Ang MD POINT OF CARE TEST O TED Performing Organization Address [facility] de Phone Number [facility] [place] [address] * POCT Glucose (05/10/2020 8:33 AM EST) Glucose, POC 198 65 - 199 mg/dL [facility] Comment: Supplemental ranges: <140 mg/dL before meals <180 mg/dL all other times of the day Blood specimen (specimen) 05/10/2020 8:33 AM EST 05/10/2020 8:33 AM EST Joseph Ang MD POINT OF CARE TEST O TED Performing Organization Address [facility] de Phone Number [facility] [place] [address] * ABORH Recheck Status (05/10/2020 7:00 AM EST) ABORH Type Recheck Completed [facility] Blood specimen (specimen) 05/10/2020 7:00 AM EST 05/10/2020 7:13 AM EST Narrative Resulting Agency Comment Spec In Lab Emer[facility] CRNA BLOOD BANK LAB ORDER IGNACIO Performing Organization Address [facility] de Phone Number [facility] [place] [address] * Antibody screen (05/10/2020 7:00 AM EST) Ab Screen Interp Negative [facility] Expires at 2359 on: 05/13/2020 [facility] Blood specimen (specimen) 05/10/2020 7:00 AM EST 05/10/2020 7:13 AM EST Narrative Resulting Agency Comment Spec In Lab Emerald [facility] CRNA BLOOD BANK LAB ORDER IGNACIO Performing Organization Address City/[facility]/ZIP Co de Phone Number [facility] [place] [address] * ABO/Rh Typing (05/10/2020 7:00 AM EST) ABORH Type AB Pos [facility] Blood specimen (specimen) 05/10/2020 7:00 AM EST 05/10/2020 7:13 AM EST Narrative Resulting Agency Comment Spec In Lab [facility] Carl[facility] CRNA BLOOD BANK LAB ORDER IGNACIO Performing Organization Address [facility] Co de Phone Number [facility] [place] [address] * (ABNORMAL) POCT Glucose (05/10/2020 6:21 AM EST) Glucose, POC 201(H) 65 - 199 mg/dL [facility] Comment: Supplemental ranges: <140 mg/dL before meals <180 mg/dL all other times of the day Blood specimen (specimen) 05/10/2020 6:21 AM EST 05/10/2020 6:21 AM EST Joseph Ang MD POINT OF CARE TEST O RDERABLES Performing Organization Address [facility] Co de Phone Number [facility] [place] [address] documented in this encounter Visit Diagnoses Not [...] mg, Oral, ONCE, 1 dose, On Laura 11/5/20 at 1530, Do not exceed 4000 mg [...] TIMES DAILY BEFORE MEALS, First dose on Alura 05/10/20 at 1200, Until Discontinued, CORRECTION BOLUS [...] Last dose on 05/12/20 at 0815, Routine 1645 (Given - Provider: Duyen Shoemaker RN)2056 (Given - Provider: Magdalena Hanna RN) 0157 (Given - Provider: Magdalean Hanna RN)0733 (Given - Provider: Duyen Shoemaker [...] Provider: Duyen Shoemaker RN)2099 (Given - Provider: Magdlaena Hanna RN) 0938 (Given - Provider: Duyen [...] 10 mg, Rectal, DAILY PRN, Starting on Lauar 05/10/20 at 1329, Until Thu05/11/20 at 1546, [...] Laura 05/10/20 at 1530, Give per rectum (SC) if [...] Routine documented in this encounter Care Teams Pallet Assembler Relationship Specialty Start Date End Date Urbano Denis DO [address] [place], [place] [address]Y [facility] [address] [place] [address] PCP - General 09/03/12 03/17/22 Ruchi Valles RN Nurse Clinic Transplant Surgery 07/30/15 documented as of this encounter
--- OUTSIDE RECORDS SUMMARY | 2024-05-16 17:21 | XMS_ITS | Encounter Summary ---
Author Organization [facility] Address [facility] [place] [address] Care Team Providers Care Credit Verifier Name Role Phone Urbano Denis DO Primary Care Provider Encounter Details Date Type Department Care Team (Late st Contact Info) Description 08/21/2020 Notes Only [place] [address] Anabella Bright Social History Tobacco Use Types [...] Bright - 08/21/2020 12:20 PM EST Transplant Drafter Construction Note: Phone conversation with Mara yesterday afternoon. [...] EST TH Visit (TeleHealth) Cardiology at [address] [phone] Byron Brown MD [facility] [place] [address] 07/14/2024 10:00 AM EST Hospital Encounter Non-[place] [phone] Arrived documented as of this encounter Goals [...] filedocumented in this encounter Care Teams Credit Verifier Relationship Specialty Start Date End Date Urbano Denis DO [address] [place] [address] [address] [place] [address] PCP - General 09/03/12 03/17/22 Ruchi Valles RN Nurse Clinic Transplant Surgery 07/30/15 documented as of this encounter
--- OUTSIDE RECORDS SUMMARY | 2024-05-16 17:21 | XMS_ITS | Encounter Summary ---
Author Organization [facility] [place] [address] Care Team Providers Care Nail Machine Operator Name Role Phone Urbano Denis DO Primary Care Provider [phone] Reason for Visit * Reason Comments Medication Refill Encounter Details Date Type Department Care Team (Late st Contact Info) Description 08/14/2020 Refill Cardiology at [address] [phone] Byron Brown MD [facility] [place] [address] Medication Refill Social History Tobacco Use Types [...] EST TH Visit (TeleHealth) Cardiology at [address] [phone] Byron Brown MD [facility] [address] 07/14/2024 10:00 AM [facility] Hospital Encounter [place] [address] Arrived documented as of this encounter Goals [...] fibrillation documented in this encounter Care Teams Nail Machine Operator Relationship Specialty Start Date End Date Urbano Denis DO [address] [place] [address] PCP - General 09/03/12 03/17/22 Ruchi Valles RN Nurse Clinic Transplant Surgery 07/30/15 documented as of this encounter
--- OUTSIDE RECORDS SUMMARY | 2024-05-16 17:21 | XMS_ITS | Encounter Summary ---
[place] [address] Care Team Providers Care Rubber Covering Machine Operator Name Role Phone Urbano Denis DO Primary Care Provider [phone] Reason for Referral * Diagnostic Test (Routine) - Closed Specialty Diagnoses / Procedures Referred By Contac t Referred To Contact Cardiology Diagnoses Cardiomyopathy, unspecified type Procedures Echocardiogram Transthoracic([facility]) Byron Brown MD [facility] [address] [facility] [place] [address] Referral ID Status Reason Start Date Expiration Date V isits Requested Visits Authorized [id number] Closed Specialty Service Requested 09/14/2020 09/14/2021 1 1 Encounter Details Date Type Department Care Team (Late st Contact Info) Description 09/14/2020 10:00 AM EST TH Visit (TeleHealth) Cardiology at [address] [phone] Byron Brown MD [facility] [address] Cardiomyopathy, unspecified type Social History [...] from the original note were not included. [facility] [place] [address] CARDIOLOGY/ VASCULAR OUTPATIENT NOTE Ethel Denis, DO TELEHEALTH VISIT : From my prior note in November 2019: Pleasant 69 year old male. S/p kidney transplant in 2016. ? The patient did not have a significant cardiac history but was admitted to [facility] in January 2019 [...] placed on plavix by a neurologist at [facility] (Shannan Redmond). There was some question about CVA/TIA at that time. He was later seen by a bell valet at [facility] (Petar) who obtained a ZIO that did [...] significant cardiac history but was admitted to [facility] in January 2019 [...] ECG in 3 months. Byron Brown MD, [facility] Cardiovascular Medicine [facility] Clinic scheduling: Trinidad John [phone] Clinic Team Nurse: Anel Proctor RN [phone] I provided care to the patient today video conference. The total time associated with this visit was 30 minutes. documented in this encounter Plan of Treatment Upcoming Encounters Date Type Department Care Team (Late st Contact Info) Description 06/22/2024 11:00 AM EST TH Visit (TeleHealth) Cardiology at [address] [phone] Byron Brown MD [facility] [place] [address] 07/14/2024 10:00 AM EST Hospital Encounter Non-Invasive [place] [address] Arrived Scheduled Orders Name Type [...] PM EDT Procedure: ?Transthoracic Echocardiogram Patient: ?MABLE ETHEL P ? (Age): 1950(70y) Med Rec#: ? [id number] ?Sex: ?M ? Site Loc: ? [facility] ?Ht / Wt: ??180(cm)/99.34(k Pt. Loc: ?Echo Lab ?BSA: ?2.19 Study Date: ?? 12/20/2020 ?Pt. Type: Outpatient Tape: ? Referring: Byron Brown ([id number]) Reading: Liseth Calero ([id number]) Parts Salvager: Anali Boudreaux Diagnosis: *Cardiomyopathy, unspecified (I42.9) BP: [...] Vmax ?0.79 ? m/sec ? MV deceleration [id number] ?msec ? MV A-wave Vmax ?0.34 ? [...] ? Mid-Inferior ?Normal ? Mid-Inferoseptal ?Normal ? [place]-Septal ? Normal ? [place]-Anterior ? Normal ? [place]-Lateral ?Normal ? [place]-Inferior ? Normal ? [place]-Tip ?Normal ? This report has been electronically signed by: Liseth Calero MD ? 12/20/2020 16:59:50 Images reviewed and interpretation verified [facility] Cardiac Ultrasound Laboratory Procedure Note Liseth Calero MD - 12/20/2020 Procedure: Transthoracic Echocardiogram Patient: MABLE Gomez (Age): 1950(70y) Med Rec#: [id number] Sex: M Site Loc: [facility] Ht / Wt: 180(cm)/99.34(k Pt. Loc: Echo Lab BSA: 2.19 Study Date: 12/20/2020 Pt. Type: Outpatient Tape: Referring: Byron Brown ([id number]) Reading: Liseth Calero ([id number]) Parts Salvager: Anali Boudreaux Diagnosis: *Cardiomyopathy, unspecified (I42.9) BP: [...] MV E-wave Vmax 0.79 m/sec MV deceleration [id number] msec MV A-wave Vmax 0.34 m/sec MV [...] Normal Mid-Posterolateral Normal Mid-Inferior Normal Mid-Inferoseptal Normal [place]-Septal Normal [place]-Anterior Normal [place]-Lateral Normal [place]-Inferior Normal [place]-Tip Normal This report has been electronically signed by: Liseth Calero MD 12/20/2020 16:59:50 Images reviewed and interpretation verified [facility] Cardiac Ultrasound Laboratory Byron Brown MD ECHO ORDERABLES documented in this encounter Visit Diagnoses Diagnosis Cardiomyopathy, unspecified type Cardiomyopathy, unspecified type documented in this encounter Care Teams Rubber Covering Machine Operator Relationship Specialty Start Date End Date Urbano Denis DO [address] [place] [address] [address] [facility] 1 [place] [address] PCP - General 09/03/12 03/17/22 Ruchi Valles RN Nurse Clinic Transplant Surgery 07/30/15 documented as of this encounter
--- OUTSIDE RECORDS SUMMARY | 2024-05-16 17:21 | XMS_ITS | Encounter Summary ---
Author Organization [facility] [place] [address] Care Team Providers Care Supervisor Force Adjustment Name Role Phone Urbano Denis DO Primary Care Provider [phone] Encounter Details Date Type Department Care Team (Late st Contact Info) Description 06/21/2020 1:20 PM EST Ancillary Procedure Radiology Library at [facility] [address] Urbano Denis DO [address] [place], [place] [address] Social History Tobacco Use Types Packs/Day Years [...] AM EST Visit (TeleHealth) Cardiology at [address] [place] [address] Byron Brown MD [facility] [place] [address] 07/14/2024 10:00 AM EST Hospital Encounter Non-Invasive [place] [phone] Arrived documented as of this encounter Goals [...] Denis DO Danielle FILM LIBRARY ORD ERABLES [place], [place] documented in this encounter Visit Diagnoses Not on filedocumented in this encounter Care Teams Supervisor Force Adjustment Relationship Specialty Start Date End Date Urbano Denis DO [address] [place] [address] PCP - General 09/03/12 03/17/22 Ruchi Valles RN Nurse Clinic Transplant Surgery 07/30/15 documented as of this encounter
--- OUTSIDE RECORDS SUMMARY | 2024-05-16 17:21 | XMS_ITS | Encounter Summary ---
[place] [address] Care Team Providers Care Guest Services Director Name Role Phone Adeel Urbano KIRBY Primary Care Provider [phone] Encounter Details Date Type Department Care Team (Late st Contact Info) Description 08/14/2020 Notes Only [place] [address] Anabella Bright Social History Tobacco Use Types [...] Needed: Medication: K-Phos Insurance: [employer] Phone: Landscape Maintenance Internship: Via CoverMyMeds Reference #: N/a Outcome: Denied - Excluded from Coverage under Medicare law documented in this encounter Plan of Treatment Upcoming Encounters Date Type Department Care Team (Late st Contact Info) Description 06/22/2024 11:00 AM EST TH Visit (TeleHealth) Cardiology at [address] [phone] Byron Brown MD [facility] [place] [address] 07/14/2024 10:00 AM EST Hospital Encounter Non-Invasive [place] [address] Arrived documented as of [...] on filedocumented in this encounter Care Teams Guest Services Director Relationship Specialty Start Date End Date Urbano Denis DO [address] [place] [address] [address] [facility] 1 [place] [address] PCP - General 09/03/12 03/17/22 Ruchi Valles RN Nurse Clinic Transplant Surgery 07/30/15 documented as of this encounter
--- OUTSIDE RECORDS SUMMARY | 2024-05-16 17:21 | XMS_ITS | Encounter Summary ---
Author Organization [facility] [place] [address] Care Team Providers Care Tube Heater Name Role Phone Adeel Urbano KIRBY Primary Care Provider [phone] Encounter Details Date Type Department Care Team (Late st Contact Info) Description 05/09/2020 Telephone [place] [address] Devi Preciado Social History Tobacco [...] EST TH Visit (TeleHealth) Cardiology at [address] [phone] Byron Brown MD [facility] [place] [address] 07/14/2024 10:00 AM EST Hospital Encounter Non-Invasive Cardiology Lab [place], [place] [...] on filedocumented in this encounter Care Teams Tube Heater Relationship Specialty Start Date End Date Urbano Denis DO [address] [place] [address] [address] [facility] 1 [place] [address] PCP - General 09/03/12 03/17/22 Ruchi Valles RN Nurse Clinic Transplant Surgery 07/30/15 documented as of this encounter
--- OUTSIDE RECORDS SUMMARY | 2024-05-16 17:21 | XMS_ITS | Encounter Summary ---
Author Organization [facility] [place] [address] Care Team Providers Care Smoking Pipe Mounter Name Role Phone AdeelUrbano boland Primary Care Provider [phone] Encounter Details Date Type Department Care Team (Late st Contact Info) Description 06/25/2020 External Results [place] [phone] Tal Eagle MD [facility] [place] [address] Social History Tobacco Use Types Packs/Day Years [...] 11:00 AM EST Visit (TeleHealth) Cardiology at [address] [phone] Byron Brown MD [facility] [place] [address] 07/14/2024 10:00 AM EST Hospital Encounter Non-[place] [address] Arrived documented as of this encounter Goals [...] on filedocumented in this encounter Care Teams Smoking Pipe Mounter Relationship Specialty Start Date End Date Urbano Denis DO [address] [place] [address] PCP - General 09/03/12 03/17/22 Ruchi Valles RN Nurse Clinic Transplant Surgery 07/30/15 documented as of this encounter
--- OUTSIDE RECORDS SUMMARY | 2024-05-16 17:21 | XMS_ITS | Encounter Summary ---
[place] [address] Care Team Providers Care Project Management Instructor Name Role Phone Adeel, Urbano KIRBY Primary Care Provider Encounter Details Date Type Department Care Team (Late st Contact Info) Description 09/18/2020 Notes Only [place] [address] Anabella Bright Social History Tobacco [...] Bright - 09/18/2020 1:10 PM EDT Transplant Hr Assistant Note: Patient's initiated appeal for coverage of K-Phos 500. Received denial letter today, filed under Media tab. documented in this encounter Plan of Treatment Upcoming Encounters Date Type Department Care Team (Late st Contact Info) Description 06/22/2024 11:00 AM EST TH Visit (TeleHealth) Cardiology at [address] [address] Byron Brown MD [facility] [place] [address] 07/14/2024 10:00 AM EST Hospital Encounter Non-Invasive Cardiology Lab [facility] [place] [phone] Arrived documented as of this encounter Goals [...] on filedocumented in this encounter Care Teams Project Management Instructor Relationship Specialty Start Date End Date Urbano Denis DO [address] [place] [address] [address] [facility] 1 [place] [address] PCP - General 09/03/12 03/17/22 Ruchi Valles RN Nurse Clinic Transplant Surgery 07/30/15 documented as of this encounter
--- OUTSIDE RECORDS SUMMARY | 2024-05-16 17:21 | XMS_ITS | Encounter Summary ---
Author Organization [facility] Address [facility] [place] [address] Care Team Providers Care Tower Cleaner Name Role Phone Urbano Denis DO Primary Care Provider Encounter Details Date Type Department Care Team (Late st Contact Info) Description 08/24/2020 Telephone [place] [phone] [facility] [place] [address] Social History Tobacco Use Types Packs/Day Years [...] to receive phosphorus foods list via email. Teletype Or Varitype Keyboard Operator emailed handouts complete with contact info to Yash's email for both Mara and Yash to review. Thank you, Jolene Reed RD documented in this encounter Plan of Treatment Upcoming Encounters Date Type Department Care Team (Late st Contact Info) Description 06/22/2024 11:00 AM EST TH Visit (TeleHealth) Cardiology at [address] [phone] Byron Brown MD [facility] [place] [address] 07/14/2024 10:00 AM EST Hospital Encounter Non-Invasive [place] [address] Arrived documented as of this [...] on filedocumented in this encounter Care Teams Tower Cleaner Relationship Specialty Start Date End Date Urbano Denis DO [address] [place] [address] [address] [place] [address] PCP - General 09/03/12 03/17/22 Hai STANLEY,Ruchi Nurse Clinic Transplant Surgery 07/30/15 documented as of this encounter
--- OUTSIDE RECORDS SUMMARY | 2024-05-16 17:21 | XMS_ITS | Encounter Summary ---
Author Organization [facility] [place] [address] Care Team Providers Care Starch Cooker Name Role Phone AdeelUrbano boland Primary Care Provider [phone] Reason for Visit * Reason Comments Medication Refill Encounter Details Date Type Department Care Team (Late st Contact Info) Description 08/12/2020 Refill Solid [place] [address] Tal Eagle MD [facility] [place] [address] Social History Tobacco Use Types Packs/Day Years [...] EST TH Visit (TeleHealth) Cardiology at [address] [phone] Byron Brown MD [facility] [place] [address] 07/14/2024 10:00 AM [facility] Hospital Encounter Non-[place] [address] Arrived documented as of this [...] on filedocumented in this encounter Care Teams Starch Cooker Relationship Specialty Start Date End Date Urbano Denis DO [address] [place] [address] [address] [facility] [facility] 1 [place] [address] PCP - General 09/03/12 03/17/22 Ruchi Valles RN Nurse Clinic Transplant Surgery 07/30/15 documented as of this encounter
--- OUTSIDE RECORDS SUMMARY | 2024-05-16 17:21 | XMS_ITS | Encounter Summary ---
Author Organization [facility] Address [facility] [place] [address] Care Team Providers Care Payroll Tax Analyst Name Role Phone Urbano Denis DO Primary Care Provider [phone] Reason for Visit * Auth/Cert Specialty Diagnoses [...] Expiration Date Visits Re quested Visits Authorized [id number] 1 1 Encounter Details Date Type Department Care Team (Latest Contact Info) Description 05/10/2020 5:41 AM EST - 05/11/2020 1:46 PM EST Hospital Encounter [place] [phone] Joseph Ang MD [facility] [place] [address] Discharge Disposition: Home Social History Tobacco Use [...] Vitamin D deficiency ??? 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 [...] decompression with Dr. Bradford but referred to [facility] due anesthesiology concerns and complexity of care [...] Course: On 05/10/2020, Cody Bolden presented to [facility] for the above mentioned procedure which he [...] below. Electronically signed by: Nadia Hernandez MD, [facility] ([phone]), at 04/11/2020 11:54 AM Xr Lumbar Spine [...] below. Electronically signed by: Jemma Pyle MD, [facility] ([phone]), at 04/11/2020 2:20 PM Pending Studies and [...] medications known as antiplatelets and anticoagulants. Common mvio-zku-fvusyop medications which should be avoided include Aspirin, [...] retention Constipation not relieved by diet and/or noxf-jcw-wbzpibh stool softeners and laxatives Nausea/vomiting (upset stomach) [...] your Primary Care Provider or withthe Neurosurgery STERILIZER MACHINE OPERATOR/RN. Appointments: Please follow up in the Neurosurgery Clinic in 4-6 weeks. Please call the Neurosurgery Office at [phone] if you do not receive a scheduled appointment within two weeks. Your follow-up appointment will be with: [] Dr. Gomez [x] Dr. Ang [] Dr. Calloway [] Dr. Barrett [] Dr. Gutierrez [] Dr. Stewart [] Dr. Zafar HOW TO REACH NEUROSURGERY Contact your Doctor Office Hours: Thursday through Thursday, 8am-5pm. Call . On weekends or after office hours: Call [phone] and ask the process camera operator to page the Neurosurgery Resident referral management liaison. IMPORTANT PHONE NUMBERS: Outpatient Nurse (Layla Pond) Inpatient Nurses Neurosurgical Resident On-Call (after 5pm or before 8am) Neurosurgery offices (Thursday through Thursday between 8am-5pm): Adult Neurosurgery Dr. Richard Barrett Pediatric Neurosurgery Dr. Franko Calloway Mid-level practitioners Franko Torres, Physician Slip Seat Coverer Cristi Diana, Physician Slip Seat Coverer Yaritza Guzman, Nurse Practitioner Karie Almeida, Nurse Practitioner * Your surgeon may not be banquet server on call, so be ready to tell [...] medications known as antiplatelets and anticoagulants. Common cocb-fvo-prbvolb medications which should be avoided include Aspirin, [...] retention Constipation not relieved by diet and/or mior-mdr-kvoauuf stool softeners and laxatives Nausea/vomiting (upset stomach) [...] your Primary Care Provider or withthe Neurosurgery STERILIZER MACHINE OPERATOR/RN. Appointments: Please follow up in the Neurosurgery Clinic in 4-6 weeks. Please call the Neurosurgery Office at [phone] if you do not receive a scheduled [...] unspecified vessel or lesion type, unspecified whether [place] or transplanted heart Take 1 tablet by [...] Plan: - Likely home today PLEASE PAGE [phone] WITH QUESTIONS Active Hospital Problems Diagnosis ??? [...] EST Neurosurgery Pre-operative H&P 05/10/2020 Cody Bolden [id number] CC: L Leg pain HPI: Cody [...] at [facility] OR ??? PRO CYSTOURETHROSCOPY, URETER CATHETER Left 06/17/2018 CYSTO, RETROGRADE, URETEROPYELOGRAPHY (WRVU 2.37) performed by Edinson Grider III, MD [facility] ??? PRO REIMPLANT URETER, SINGLE URETER Left 05/20/2016 @URETERONEOCYSTOSTOMY ANASTOMOSIS OF SINGLE URETER TO BLADDER performed by Santosh Arredondo MD at [facility] OR ??? PRO REIMPLANT URETER, SINGLE URETER N/A 05/20/2016 @URETERONEOCYSTOSTOMY ANASTOMOSIS OF SINGLE URETER TO BLADDER performed by Que Amaro MD at [facility] OR ??? PRO TOTAL KNEE ARTHROPLASTY Right 11/25/2017 TOTAL KNEE ARTHROPLASTY (WRVU 20.72) performed by Breezy Dale MD at [facility] OR ??? PRO TRANSPLANT, PREP CADAVER RENAL GRAFT N/A 09/16/2015 @PREPARATION CADAVERIC RENAL ALLOGRAFT performed by Franko Larkin MD at [facility] OR ??? PRO TRANSPLANTATION OF KIDNEY N/A 09/16/2015 @KIDNEY TRANSPLANT, WITHOUT RECIPIENT NEPHRECTOMY performed by Franko Larkin MD at [facility] OR ??? TISSUE TRANSFER kidney ??? US RENAL TRANSPLANT LEFT Left 01/31/2019 US Renal Transplant Left 01/31/2019 [facility] RAD ULTRASOUND ??? US RENAL TRANSPLANT LEFT Left 02/07/2019 US Renal Transplant Left 02/07/2019 [facility] RAD ULTRASOUND Medications: No current facility-administered [...] Ang MD - 05/11/2020 1:46 PM EST [facility] Neurosurgetry Operative Note Patient Name: Cody Bolden : [id number] MR#: [id number] ?? Case Date: 05/10/2020 ?? Surgeon: Surgeon(s) [...] Chair Section of Neurosurgery Department of Surgery [facility] * Plan of Care - Duyen [...] AM EST D/C planning: Team: neurosurg Pager: [phone] Pt to d/c home via private vehicle. Pt/team feel no d/c needs identified at this time. Pt is aware of d/c plan. Shira Escalante MSN, RN CM metal polisher and buffer apprentice Office of Care Management Pager #[phone] * Initial Assessments - Shira Escalante RN [...] care provider on file: Urbano Denis DO [phone] Advance Directive on file and Code Status: Received, Attempt Cardiopulmonary Resuscitation - Inpatient Patient???s Functional Status:ind with mobility and ADL's Living Situation:lives with in [address] [address] Supports:/family Assessment: Patient with no apparent RNCM/SW needs at this time. No housing, transportation, insurance, resources concerns identified at this time. Supports in place to achieve a safe post-hospital transition. No identified barriers to accessing necessary care and/or follow-up after discharge. Plan: Patient to d/c to home via private vehicle when medically ready. metal polisher and buffer apprentice/Sawsmith will continue to follow patient???s progress and remain available if situation changes for coordination of care, psychosocial support and/or discharge planning. Shira Escalante RN Pager [phone] Extension [phone] * Plan of Care - Magdalena Hanna [...] Ang MD - 05/10/2020 10:25 AM EST [facility] Neurosurgery Brief Operative Note Patient Name: Cody Bolden : [id number] MR#: [id number] Case Date: 05/10/2020 Surgeon: Surgeon(s) and Role: [...] AM EST TH Visit (TeleHealth) Cardiology at [address] [address] Byron Brown MD [facility] DR CARDIOLOGY [place], [place] [id number] 07/14/2024 10:00 AM EST Hospital Encounter Non-[place] [address] Arrived documented as of this [...] recess stenosis Microsurg Techniques, Req Oper Microscope ([id number]) 05/10/2020 7:27 AM EST Left L45 radiculopathy bilateral lateral recess stenosis Fluoroscopy Exam Up To 1 Hr Phy Or Oth Hlth Care Prov (11356) 05/10/2020 7:27 AM EST Left L45 radiculopathy bilateral lateral recess stenosis Laminotomy, Lumbar Disk, 1 Intrsp ([id number]) 05/10/2020 7:27 AM EST Left L45 radiculopathy bilateral lateral recess stenosis Laminec/Facetect/For wagner, Lumbar 1 Seg (42257) 05/10/2020 7:27 AM EST Left L45 radiculopathy [...] Glucose, POC 205(H) 65 - 199 mg/dL [facility] Comment: Supplemental ranges: <140 mg/dL before meals <180 mg/dL all other times of the day Blood specimen (specimen) 05/11/2020 11:28 AM EST 05/11/2020 11:28 AM EST Joseph Ang MD POINT OF CARE TEST O RDERABLES [facility] [place] [address] * (ABNORMAL) POCT Glucose (05/11/2020 7:18 AM EST) Glucose, POC 222(H) 65 - 199 mg/dL [facility] Comment: Supplemental ranges: <140 mg/dL before meals <180 mg/dL all other times of the day Blood specimen (specimen) 05/11/2020 7:18 AM EST 05/11/2020 7:18 AM EST Joseph Ang MD POINT OF CARE TEST O TED Performing Organization Address City/[facility] Co de Phone Number [facility] [place] [address] * POCT Glucose (05/10/2020 4:39 PM EST) Glucose, POC 151 65 - 199 mg/dL [facility] Comment: Supplemental ranges: <140 mg/dL before meals <180 mg/dL all other times of the day Blood specimen (specimen) 05/10/2020 4:39 PM EST 05/10/2020 4:39 PM EST Joseph Ang MD POINT OF CARE TEST O TED Performing Organization Address [facility] de Phone Number [facility] [place] [address] * XR Fluoro No Rad <1Hr - OR Use (05/10/2020 12:32 PM EST) Narrative RAD - 05/10/2020 12:33 PM EST This exam is auto-finalizing. No interpretation was done. Joseph Ang MD IMG FLUORO ORDERABLE S Performing Organization Address [facility] Co de Phone Number RAD [place], [place] * (ABNORMAL) POCT Glucose (05/10/2020 10:47 AM EST) Glucose, POC 221(H) 65 - 199 mg/dL [facility] Comment: Supplemental ranges: <140 mg/dL before meals <180 mg/dL all other times of the day Blood specimen (specimen) 05/10/2020 10:47 AM EST 05/10/2020 10:47 AM EST Joseph Ang MD POINT OF CARE TEST O TED Performing Organization Address [facility] de Phone Number [facility] [place] [address] * POCT Glucose (05/10/2020 8:33 AM EST) Glucose, POC 198 65 - 199 mg/dL [facility] Comment: Supplemental ranges: <140 mg/dL before meals <180 mg/dL all other times of the day Blood specimen (specimen) 05/10/2020 8:33 AM EST 05/10/2020 8:33 AM EST Joseph Ang MD POINT OF CARE TEST O TED Performing Organization Address [facility] Phone Number [facility] [place] [address] * ABORH Recheck Status (05/10/2020 7:00 AM EST) ABORH Type Recheck Completed [facility] Blood specimen (specimen) 05/10/2020 7:00 AM EST 05/10/2020 7:13 AM EST Narrative Resulting Agency Comment Spec In Lab Emerald Carlson CRNA BLOOD BANK LAB ORDER IGNACIO Performing Organization Address [facility] de Phone Number [facility] [place] [address] * Antibody screen (05/10/2020 7:00 AM EST) Ab Screen Interp Negative [facility] Expires at [id number] on: 05/13/2020 [facility] Blood specimen (specimen) 05/10/2020 7:00 AM EST 05/10/2020 7:13 AM EST Narrative Resulting Agency Comment Spec In Lab Emerald Carlson CRNA BLOOD BANK LAB ORDER IGNACIO Performing Organization Address City/[facility]/ZIP Co de Phone Number [facility] [place] [address] * ABO/Rh Typing (05/10/2020 7:00 AM EST) ABORH Type AB Pos [facility] Blood specimen (specimen) 05/10/2020 7:00 AM EST 05/10/2020 7:13 AM EST Narrative Resulting Agency Comment Spec In Lab Emerald Carlson CRNA BLOOD BANK LAB ORDER IGNACIO Performing Organization Address [facility] Co de Phone Number [facility] [place] [address] * (ABNORMAL) POCT Glucose (05/10/2020 6:21 AM EST) Glucose, POC 201(H) 65 - 199 mg/dL [facility] Comment: Supplemental ranges: <140 mg/dL before meals <180 mg/dL all other times of the day Blood specimen (specimen) 05/10/2020 6:21 AM EST 05/10/2020 6:21 AM EST Joseph Ang MD POINT OF CARE TEST O RDERABLES Performing Organization Address [facility] Co de Phone Number [facility] [place] [address] documented in this encounter Visit Diagnoses Diagnosis [...] mg/mL) injection (CANCELED) ONCE PRN, Starting on Lauar 05/10/20 at 0823, Until Thu05/11/20 at 1546, [...] Starting on Laura 05/10/20 at 1329, Until 05/11/20 at 1328, Pain, Give only if patient is awake/alert., Routine ondansetron (ZOFRAN) injection 4-8 mg(Linked Group 6) 4-8 mg, Intravenous, EVERY 8 HOURS PRN, Starting on Laura 05/10/20 at 1329, Until 05/11/20 at 1546, Nausea, If multiple antiemetics are ordered, use ondansetron first, prochlorperazine second, and metaclopramide third. Start with 4mg and if ineffective in 30 minutes, give an additional 4mg ondansetron (Zofran) tablet 4-8 mg(Linked Group 6) 4-8 mg, Oral, EVERY 8 HOURS PRN, Starting on Laura 05/10/20 at 1329, Until 05/11/20 at 1546, Nausea, Vomiting, If multiple antiemetics [...] Starting on Laura 05/10/20 at 1329, Until 05/11/20 at 1546, Pain, severe pain (7-10), Routine 2149 (See Alternative - Provider: Rubén Restrepo RN) 156 (See Alternative - Provider: Magdalena Hanna RN) oxyCODONE (Roxicodone) tablet 5 mg(Linked Group 7) 5 mg, Oral, EVERY 4 HOURS PRN, Starting on Laura 05/10/20 at 1329, Until 05/11/20 at 1546, Pain, moderate pain (4-6), Routine [...] Laura 05/10/20 at 1530, Give per rectum (HI) if unable to take PO. Do not [...] documented in this encounter Care Teams Payroll Tax Analyst Relationship Specialty Start Date End Date Urbano Denis DO [address] [place] [address] PCP - General 09/03/12 03/17/22 Ruchi Valles RN Nurse Clinic Transplant Surgery 07/30/15 documented as of this encounter
--- OUTSIDE RECORDS SUMMARY | 2024-05-16 17:21 | XMS_ITS | Encounter Summary ---
[place] [address] Care Team Providers Care Drum Stock Clerk Name Role Phone Urbano Denis DO Primary Care Provider [phone] Encounter Details Date Type Department Care Team (Late st Contact Info) Description 2020 Telephone [place] [phone] Anabella Bright Social History Tobacco Use Types [...] at 2020 9:55 AM EST ----- Contact: [facility] not covered by their insurance. [facility] was supposed to get in touch [...] EST TH Visit (TeleHealth) Cardiology at [address] [phone] Byron Brown MD [facility] [place] [address] 07/14/2024 10:00 AM EST Hospital Encounter Non-[place] [phone] Arrived documented as of this encounter Goals Goal Patient Goal Type Associated Problems Recent Progress Patient-Stated? Author [facility] Medication Compliance and Understanding Patient Facing Action Plan On track( 017 10:41 AM EDT) Selena Scott, [facility] Note: Patient Goal: Clear hepatitis C Timeframe to meet goal: within 12 weeks of therapy documented as of this encounter Visit Diagnoses Not on filedocumented in this encounter Care Teams Drum Stock Clerk Relationship Specialty Start Date End Date Urbano Denis DO [address] [place] [address] [address] [facility] [address] [place] [address] PCP - General 09/03/12 03/17/22 Ruchi Valles RN Nurse Clinic Transplant Surgery 07/30/15 documented as of this encounter
--- OUTSIDE RECORDS SUMMARY | 2024-05-16 17:21 | XMS_ITS | Encounter Summary ---
Author Organization [facility] [place] [address] Care Team Providers Care Compressor House Operator Name Role Phone Urbano Denis DO Primary Care Provider [phone] Encounter Details Date Type Department Care Team (Latest Contact Info) Description 06/15/2020 9:00 AM EST TH Visit (TeleHealth) [place] [address] Karie Reid, RESIDENTIAL DOOR INSTALLER [facility] [place] [address] [place] [address] Herniated lumbar intervertebral disc Social History Tobacco [...] of June. This can be done at [facility]. Plan: Follow up lumbar, flex and AP films at [facility] before 07/2020 then PRN. Patient [...] EST TH Visit (TeleHealth) Cardiology at [address] [address] Byron Brown MD [facility] [place] [address] 07/14/2024 10:00 AM EST Hospital Encounter Non[place] [address] Arrived documented as of this encounter Goals [...] myelopathy documented in this encounter Care Teams Compressor House Operator Relationship Specialty Start Date End Date Urbano Denis DO [address] [place] [address] PCP - General 09/03/12 03/17/22 Hai STANLEYRuchi Nurse Clinic Transplant Surgery 07/30/15 documented as of this encounter
--- OUTSIDE RECORDS SUMMARY | 2024-05-16 17:21 | XMS_ITS | Encounter Summary ---
Author Organization [facility] [place] [address] Care Team Providers Care Psychiatric Nurse Practitioner Name Role Phone Adeel Urbano KIRBY Primary Care Provider Encounter Details Date Type Department Care Team (Late st Contact Info) Description 06/15/2020 [place] [phone] Sonia Alcantar Social History Tobacco Use Types [...] 06/15/2020 1:04 PM EST Faxed order to [facility] When complete schedule TOV w BCB / send results to B ~~~~~~~~~~~~~~~~~~~~~~~~~~~~~~~~~~~~~~~~~~~~~~~~~~~~~ Karie Reid APRN Sent: ThuJune 15, 2020 12:15 PM To: P [facility] Neurosurgery Navy Material Inspector ?? Follow-up and Dispositions Check-out Note: Follow up lumbar flexion/extension/AP xray. He would like to do it before insurancechanges at the end of June. This can be done at [facility]. Plan: Follow up lumbar, flex and AP films at [facility] before 07/2020 ??then PRN. documented in this encounter Plan of Treatment Upcoming Encounters Date Type Department Care Team (Late st Contact Info) Description 06/22/2024 11:00 AM EST TH Visit (TeleHealth) Cardiology at [address] [phone] Byron Brown MD [facility] [place] [address] 07/14/2024 10:00 AM EST Hospital Encounter [place] [phone] Arrived documented as of this encounter Goals Goal Patient Goal Type Associated Problems Recent Progress Patient-Stated? Author [facility] Medication Compliance and Understanding Patient Facing Action Plan On track( 017 10:41 AM EDT) Selena Scott, [facility] Note: Patient Goal: Clear hepatitis C Timeframe to meet goal: within 12 weeks of therapy documented as of this encounter Visit Diagnoses Not on filedocumented in this encounter Care Teams Psychiatric Nurse Practitioner Relationship Specialty Start Date End Date Urbano Denis DO [address] [place] [address] PCP - General 09/03/12 03/17/22 Ruchi Valles RN Nurse Clinic Transplant Surgery 07/30/15 documented as of this encounter
--- OUTSIDE RECORDS SUMMARY | 2024-05-16 17:21 | XMS_ITS | Encounter Summary ---
Author Organization [facility] [place] [address] Care Team Providers Care Glue Specialty Supervisor Name Role Phone Adeel Urbano KIRBY Primary Care Provider [phone] Reason for Visit * Reason Onset Date Comments Medication Refill 07/26/2020 Encounter Details Date Type Department Care Team (Late st Contact Info) Description 07/26/2020 Refill Cardiology at [address] [phone] Byron Brown MD [facility] [place] [address] Medication Refill Social History Tobacco Use Types [...] EST TH Visit (TeleHealth) Cardiology at [address] [phone] Byron Brown MD [facility] [place] [address] 07/14/2024 10:00 AM EST Hospital Encounter Non-Invasive [place] [address] Arrived documented as of this [...] fibrillation documented in this encounter Care Teams Glue Specialty Supervisor Relationship Specialty Start Date End Date Urbano Denis DO [address] [place] [address] PCP - General 09/03/12 03/17/22 Ruchi Valles RN Nurse Clinic Transplant Surgery 07/30/15 documented as of this encounter
--- OUTSIDE RECORDS SUMMARY | 2024-05-16 17:21 | XMS_ITS | Encounter Summary ---
Author Organization [facility] [place] [address] Care Team Providers Care Household Coordinator Name Role Phone Urbano Denis DO Primary Care Provider Encounter Details Date Type Department Care Team (Latest Contact Info) Description 05/10/2020 7:30 AM EST - 05/10/2020 11:59 PM [facility] Hospital En[place] [address] Discharge Disposition: Home Social History Tobacco Use [...] unspecified vessel or lesion type, unspecified whether [place] or transplanted heart Take 1 tablet by [...] - 05/10/2020 10:30 AM EST NEURODIAGNOSTIC LABORATORY [facility] INTRAOPERATIVE MONITORING REPORT Name: Cody [...] and abductor hallucis pickup. . CPT Codes: 35327 (EEG); 64315 (EMG 2 limbs); 78154 (EMG anal sphincter); 51623 (upper & lower MEP); 14707 (upper & lower SSEP bilateral); 76827 (IOM, 2 units), 11921 (IOM, 4 units), Total IOMtime: 1 hours, [...] Olga Valencia MD; Jolly Dennison EEG/EP T., [facility], [facility]; Servando Alexandre PhD, [facility] Anesthesia: Propofol/opioid, with no muscle relaxant after [...] 11:00 AM EST Visit (TeleHealth) Cardiology at [address] [phone] Byron Brown MD [facility] [place] [address] 07/14/2024 10:00 AM EST Hospital Encounter Non-[place] [phone] Arrived documented as of this encounter Goals [...] on filedocumented in this encounter Care Teams Household Coordinator Relationship Specialty Start Date End Date Urbano Denis DO [address] [place] [address] [address] [place] [address] PCP - General 09/03/12 03/17/22 Ruchi Valles RN Nurse Clinic Transplant Surgery 07/30/15 documented as of this encounter
--- OUTSIDE RECORDS SUMMARY | 2024-05-16 17:21 | XMS_ITS | Encounter Summary ---
Author Organization [facility] [place] [address] Care Team Providers Care Flower Shop Laborer/Designer Name Role Phone Urbano Denis DO Primary Care Provider Encounter Details Date Type Department Care Team (Late st Contact Info) Description 08/21/2020 Telephone [place] [phone] Marisela Metcalf, RN Social History Tobacco Use [...] EST TH Visit (TeleHealth) Cardiology at [address] [phone] Byron Brown MD [facility] [place] [address] 07/14/2024 10:00 AM EST Hospital Encounter Non-Invasive [place] [address] Arrived documented as of [...] on filedocumented in this encounter Care Teams Flower Shop Laborer/Designer Relationship Specialty Start Date End Date Urbano Denis DO [address] [place] [address] PCP - General 09/03/12 03/17/22 Hai STANLEY,Ruchi Nurse Clinic Transplant Surgery 07/30/15 documented as of this encounter
--- OUTSIDE RECORDS SUMMARY | 2024-05-16 17:21 | XMS_ITS | Encounter Summary ---
[place] [address] Care Team Providers Care Sheet Metal Worker Supervisor Name Role Phone AdeelUrbano toscano Primary Care Provider [phone] Reason for Visit * Reason Onset Date Comments Results 05/08/2020 Negative Covid Encounter Details Date Type Department Care Team (Late st Contact Info) Description 05/08/2020 [place] [address] Huyen Garrison RN Results (Negative Covid) Social [...] AM EST TH Visit (TeleHealth) Cardiology at [address] [phone] Byron Brown MD [facility] [place] [address] 07/14/2024 10:00 AM EST Hospital Encounter Non-[place]vasive [place] [address] Arrived documented as of [...] filedocumented in this encounter Care Teams Sheet Metal Worker Supervisor Relationship Specialty Start Date End Date Urbano Denis DO [address] [place] [address] PCP - General 09/03/12 03/17/22 Ruchi Valles RN Nurse Clinic Transplant Surgery 07/30/15 documented as of this encounter
--- OUTSIDE RECORDS SUMMARY | 2024-05-16 17:21 | XMS_ITS | Encounter Summary ---
Author Organization [facility] Address [facility] [place] [address] Care Team Providers Care Tree Wrapper Name Role Phone Urbano Denis DO Primary Care Provider [phone] Reason for Visit * Auth/Cert Specialty Diagnoses [...] Expiration Date Visits Re quested Visits Authorized [id number] 1 1 Encounter Details Date Type Department Care Team (Late st Contact Info) Description 05/10/2020 7:27 AM EST Anesthesia [place] [phone] Brian Perez MD [facility] [address] [place] [address] Sonido Gurrola MD [facility] [address] [place] [address] Anesthesia Record Procedure Summary Procedure Name Responsible [...] cephalic vein (lateral side of arm), right; aubs-xcu-ydigbk catheter system; 20 gauge, 1 in length; distraction, tolerated well; 05/10/20; 0713 02/07/19 0315 by Marisela Barnes LPN 05/10/20 0713 by Alonzo Cohen RN (RETIRED) Peripheral IV Line - Single Lumen 05/10/20; 0645; median vein (underside of arm), right; ctsa-zig-jcollq catheter system; 20 gauge; alonzo cohen; distraction; [...] Time: 1036 05/10/20 0736 by Emerald Carlson FIRE EQUIPMENT INSPECTOR HELPER 05/10/20 1036 by Xochitl Camara Urethral Catheter [...] 0753; metacarpal vein (top of hand), right; qexu-nqh-brgway catheter system; 18 gauge; 05/11/20; 1128 05/10/20 0753 by Emerald Carlson FIRE EQUIPMENT INSPECTOR HELPER 05/11/20 1128 by Germaine Mayer Incision 05/10/20; 0823; back ; LDA not present upon assessment; 01/30/22; 22105/10/20 0823 by Lacho Escamilla RN 01/30/22 7105 by Carmela Martinez RN documented in this [...] Procedure Summary Date: 05/10/20 Room / Location: [facility] OR [address] [place] [address] MAIN OR Anesthesia Start: 726 Anesthesia Stop: [...] All Anesthesia Providers: Anesthesiologist: Brian Perez MD FIRE EQUIPMENT INSPECTOR HELPER: Emerald Carlson CRNA Student Nurse Electronic Maintenance Supervisor: Xochitl Pitts Vitals Value Taken Time BP 138/58 05/10/20 1230 Temp 36.5 ??C (97.7 ??F) 05/10/20 1040 Pulse 49 05/10/20 1237 Resp 19 05/10/20 1237 SpO2 91 % 05/10/20 1242 Pain Level 0 05/10/20 1200 Vitals shown include unvalidated device data. Patient Location: PACU/[facility] Level of Consciousness: Conscious but [...] Vitamin D deficiency ??? 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 CAH [...] EXTREMITY performed by Que Amaro MD at [facility] OR ??? PRO CYSTOURETHROSCOPY, URETER CATHETER Left 06/17/2018 CYSTO, RETROGRADE, URETEROPYELOGRAPHY (WRVU 2.37) performed by Edinson Grider III[facility] ??? PRO REIMPLANT URETER, SINGLE URETER Left 05/20/2016 @URETERONEOCYSTOSTOMY ANASTOMOSIS OF SINGLE URETER TO BLADDER performed by Santosh Arredondo MD at [facility] OR ??? PRO REIMPLANT URETER, SINGLE URETER N/A 05/20/2016 @URETERONEOCYSTOSTOMY ANASTOMOSIS OF SINGLE URETER TO BLADDER performed by Que Amaro MD at [facility] OR ??? PRO TOTAL KNEE ARTHROPLASTY Right 11/25/2017 TOTAL KNEE ARTHROPLASTY (WRVU 20.72) performed by Breezy Dale MD at [facility] OR ??? PRO TRANSPLANT, PREP CADAVER RENAL GRAFT N/A 09/16/2015 @PREPARATION CADAVERIC RENAL ALLOGRAFT performed by Franko Larkin MD at [facility] OR ??? PRO TRANSPLANTATION OF KIDNEY N/A 09/16/2015 @KIDNEY TRANSPLANT, WITHOUT RECIPIENT NEPHRECTOMY performed by Franko Larkin MD at [facility] OR ??? TISSUE TRANSFER kidney ??? US RENAL TRANSPLANT LEFT Left 01/31/2019 US Renal Transplant Left 01/31/2019 [facility] RAD ULTRASOUND ??? US RENAL TRANSPLANT LEFT Left 02/07/2019 US Renal Transplant Left 02/07/2019 [facility] RAD ULTRASOUND Social History Tobacco Use [...] distance: >3 FB Neck ROM: full Full abrry Cardiovascular Assessment: Rhythm: regular Rate: normal Pulmonary [...] with patient and spouse. Plan discussed with FIRE EQUIPMENT INSPECTOR HELPER. CATA PAT Clinic Note: Date and Time [...] EST TH Visit (TeleHealth) Cardiology at [address] [phone] Byron Brown MD [facility] [place] [address] 07/14/2024 10:00 AM EST Hospital Encounter Non-[place] [phone] Arrived documented as of this encounter Goals [...] mg documented in this encounter Care Teams Tree Wrapper Relationship Specialty Start Date End Date Urbano Denis DO [address] [place] [address] PCP - General 09/03/12 03/17/22 Ruchi Valles RN Nurse Clinic Transplant Surgery 07/30/15 documented as of this encounter
--- OUTSIDE RECORDS SUMMARY | 2024-05-16 17:21 | XMS_ITS | Encounter Summary ---
Author Organization Formerly [facility] [place] [address] Care Team Providers Care Special Needs Teacher Name Role Phone Adeel Urbano KIRBY Primary Care Provider Encounter Details Date Type Department Care Team (Late st Contact Info) Description 05/07/2020 10:00 AM [facility] Public [place] [address] COVID-19 ruled out Social History [...] EST TH Visit (TeleHealth) Cardiology at [address] [phone] Byron Brown MD [facility] [place] [address] 07/14/2024 10:00 AM EST Hospital Encounter Non-[place] [address] Arrived documented as of this [...] EST) SARS-CoV-2 RNA Not Detected Not Detected [facility] Comment: This result should be interpreted [...] on the instructions for use provided by [employer] and additional guidance provided by CDC and FDA. Testing is performed in the Clinical Genomics and Advanced Technology Laboratory within the Department of Pathology and Laboratory Medicine at [facility], certified under the Clinical Laboratory Improvement Amendments [...] fact sheets at the following FDA website: https://www.fda.gov/medical-devices/oxmsezvwyad-mnfpnae-0449-jlxfe-74-nkzpdjoek- use-a fpjczbijihggl-xwbxlln-mvhezuo/lbfmv-vqoxyggqnwp-tqze SARS-CoV-2 RNA Source [employer] Swab [facility] Nasopharyngeal swab (specimen) 05/07/2020 12:36 PM EST 05/07/2020 12:36 PM EST Comment:Symptoms->Asymptomat ic Narrative Resulting Agency Comment Spec In Lab Joseph Ang MD MOLECULAR ORDERABLES [facility] [place] [address] documented in this encounter Visit Diagnoses Diagnosis COVID-19 ruled out documented in this encounter Care Teams Special Needs Teacher Relationship Specialty Start Date End Date Urbano Denis DO [address] [place] [address] PCP - General 3/1/13 9/12/22 Hai STANLEY,Ruchi Nurse Clinic Transplant Surgery 07/30/15 documented as of this encounter
--- OUTSIDE RECORDS SUMMARY | 2024-05-16 17:21 | XMS_ITS | Encounter Summary ---
Author Organization Formerly [facility] [place] [address] Care Team Providers Care Gospel Worker Name Role Phone Urbano Denis DO Primary Care Provider [phone] Encounter Details Date Type Department Care Team (Late st Contact Info) Description 06/15/2020 Orders [place] [address] Layla Pond RN Spinal stenosis [...] 11:00 AM EST Visit (TeleHealth) Cardiology at [address] [phone] Byron Brown MD [facility] [address] 07/14/2024 10:00 AM EST Hospital Encounter Non-Invasive [place] [address] Arrived documented as of this encounter Goals [...] present documented in this encounter Care Teams Gospel Worker Relationship Specialty Start Date End Date Urbano Denis DO [address] [place] [address] PCP - General 09/03/12 03/17/22 Ruchi Valles RN Nurse Clinic Transplant Surgery 07/30/15 documented as of this encounter
--- OUTSIDE RECORDS SUMMARY | 2024-05-16 17:21 | XMS_ITS | Encounter Summary ---
Author Organization [facility]ly [facility] [place] [address] Care Team Providers Care Medical Historian Name Role Phone Urbano Denis DO Primary Care Provider [phone] Encounter Details Date Type Department Care Team (Late st Contact Info) Description 10/08/2020 11:00 AM EDT Office [place] [address] Tal Eagle MD [facility] [place] [address] Tobacco abuse counseling; H/O kidney transplant; Prophylactic [...] in this encounter Progress Notes * Tal Ealge MD - 10/08/2020 11:00 AM EDT Transplant [...] hepatitis) 08/25/2016 ??? Prophylactic immunotherapy 09/22/2016 ??? 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 OR ??? PRO REIMPLANT URETER, SINGLE URETER Left 05/20/2016 ?? @URETERONEOCYSTOSTOMY ANASTOMOSIS OF SINGLE URETER TO BLADDER performed by Santosh Arredondo MD [facility] OR ??? PRO REIMPLANT URETER, SINGLE URETER N/A 05/20/2016 ?? @URETERONEOCYSTOSTOMY ANASTOMOSIS OF SINGLE URETER TO BLADDER performed by [facility]hil [facility] Larkin [facility] ??? US RENAL TRANSPLANT LEFT Left 01/31/2019 ?? US Renal Transplant Left 01/31/2019 [facility] RAD ULTRASOUND ??? US RENAL TRANSPLANT LEFT Left 02/07/2019 ?? US Renal Transplant Left 02/07/2019 [facility] RAD ULTRASOUND ? Current Outpatient Medications: [...] for diabetics, every 5 for non diabetics [place] kidney ultrasound looking for renal cell CA, [...] from 10/08/2020 in Solid Organ Transplant at [facility] Weight 105.2 kg (232 lb) Heart Rate [...] control ? Immunosuppression -Prograf, Cellcept Proteinuria Likely [place] kidney involvement, no nephrosis ? PO4/Mg - Kphos.??decr to 2 tabs bid (did so in September 2020) - Magnesium??gluconate [phone] TID - He can take liquid antacid [...] disease, AF/Afib Followed by Dr. Brown ? [id number] labs f/u in??September 2021 ?? ? Discussion with the patient and/or family concerned the following: ?Diagnostic results or recommended studies ?Prognosis; ?Risks and benefits of management; ?Instructions for management; ?Compliance with treatment; ?Risk factor reduction; ?Patient and family education. ? Total time?25 of 30 min??in direct face to face crisis counselor. ?? documented in this encounter Plan of Treatment Upcoming Encounters Date Type Department Care Team (Late st Contact Info) Description 06/22/2024 11:00 AM EST TH Visit (TeleHealth) Cardiology at [address] [phone] Byron Brown MD [facility] [place] [address] 07/14/2024 10:00 AM EST Hospital Encounter Non[place] [address] Arrived documented as of this [...] transplant documented in this encounter Care Teams Medical Historian Relationship Specialty Start Date End Date Urbano Denis DO [address] [place] [address] PCP - General 09/03/12 03/17/22 Ruchi Valles RN Nurse Clinic Transplant Surgery 07/30/15 documented as of this encounter
--- OUTSIDE RECORDS SUMMARY | 2024-05-16 17:21 | XMS_ITS | Encounter Summary ---
Author Organization [facility] [place] [address] Care Team Providers Care Newspaper Publisher Name Role Phone AdeelUrbano boland Primary Care Provider [phone] Reason for Visit * Reason Comments Medication Refill Encounter Details Date Type Department Care Team (Late st Contact Info) Description 09/10/2020 Refill Solid [place] [address] [facility] [address] [place] [address] Social History Tobacco Use Types Packs/Day Years [...] EST TH Visit (TeleHealth) Cardiology at [address] [address] [facility] [place] [address] 07/14/2024 10:00 AM [facility] Hospital Encounter Non[place] [address] Arrived documented as of this [...] filedocumented in this encounter Care Teams Newspaper Publisher Relationship Specialty Start Date End Date Urbano Denis DO [address] [place] [address] [address] [facility] [address] [place] [address] PCP - General 09/03/12 03/17/22 Ruchi Valles RN Nurse Clinic Transplant Surgery 07/30/15 documented as of this encounter
--- OUTSIDE RECORDS SUMMARY | 2024-05-16 17:21 | XMS_ITS | Encounter Summary ---
Author Organization Formerly [facility] [place] [address] Care Team Providers Care Pop Singer Name Role Phone AdeelUrbano toscano Primary Care Provider Reason for Visit * Reason Onset Date Comments Medication Refill 08/21/2020 Encounter Details Date Type Department Care Team (Late st Contact Info) Description 08/21/2020 Refill [place] [phone] Tal Eagle MD [facility] [place] [address] Social History Tobacco Use Types Packs/Day Years [...] EST TH Visit (TeleHealth) Cardiology at [address] [phone] Byron Brown MD [facility] [place] [address] 07/14/2024 10:00 AM EST Hospital Encounter Non-[place] [phone] Arrived documented as of this encounter Goals [...] on filedocumented in this encounter Care Teams Pop Singer Relationship Specialty Start Date End Date Urbano Denis DO [address] [place] [address] PCP - General 09/03/12 03/17/22 Ruchi Valles RN Nurse Clinic Transplant Surgery 07/30/15 documented as of this encounter
--- OUTSIDE RECORDS SUMMARY | 2024-05-16 17:21 | XMS_ITS | Encounter Summary ---
Author Organization [facility] [place] [address] Care Team Providers Care Records Management Director Name Role Phone AdeelUrbano boland Primary Care Provider [phone] Encounter Details Date Type Department Care Team (Late st Contact Info) Description 08/06/2020 Abstract [place] [phone] Tal Eagle MD [facility] [place] [address] Social History Tobacco Use Types Packs/Day Years [...] AM EST Visit (TeleHealth) Cardiology at [address] [phone] Byron Brown MD [facility] [place] [address] 07/14/2024 10:00 AM EST Hospital Encounter Non[place] [address] Arrived documented as of this encounter Goals [...] on filedocumented in this encounter Care Teams Records Management Director Relationship Specialty Start Date End Date Urbano Denis DO [address] [place] [address] [address] [facility] [place] [address] PCP - General 09/03/12 03/17/22 Ruchi Valles RN Nurse Clinic Transplant Surgery 07/30/15 documented as of this encounter
--- OUTSIDE RECORDS SUMMARY | 2024-05-16 17:21 | XMS_ITS | Encounter Summary ---
Author Organization [facility] [place] [address] Care Team Providers Care Shipping Checker Name Role Phone AdeelUrbano Primary Care Provider Encounter Details Date Type Department Care Team (Late st Contact Info) Description 09/04/2020 Telephone Cardiology at [address] [phone] Hetal Lyle LNA Social History [...] EST TH Visit (TeleHealth) Cardiology at [address] [phone] Byron Brown MD [facility] [place] [address] 07/14/2024 10:00 AM EST Hospital Encounter Non-[place] [address] Arrived documented as of this encounter Goals [...] on filedocumented in this encounter Care Teams Shipping Checker Relationship Specialty Start Date End Date Urbano Denis DO [address] [place] [address] [address] [place] [address] PCP - General 09/03/12 03/17/22 Ruchi Valles RN Nurse Clinic Transplant Surgery 07/30/15 documented as of this encounter
--- OUTSIDE RECORDS SUMMARY | 2024-05-16 17:21 | XMS_ITS | Encounter Summary ---
Author Organization Formerly [facility] [place] [address] Care Team Providers Care Audio Engineer Name Role Phone AdeelUrbano toscano Primary Care Provider Encounter Details Date Type Department Care Team (Latest Contact Info) Description 09/04/2020 Orders Only [place] [phone] Tal Eagle MD [facility] [place] [address] H/O kidney transplant; Vitamin D deficiency; [facility] current use of immunosuppressive drug Social History [...] AM EST TH Visit (TeleHealth) Cardiology at [address] [phone] Byron Brown MD [facility] [place] [address] 07/14/2024 10:00 AM EST Hospital Encounter Non-Invasive Cardiology Lab [place], [place] [...] deficiency Unspecified vitamin D deficiency 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
--- OUTSIDE RECORDS SUMMARY | 2024-05-16 17:21 | XMS_ITS | Encounter Summary ---
Author Organization [facility] [place] [address] Care Team Providers Care Senior Software Engineer Name Role Phone Urbano Denis DO Primary Care Provider [phone] Encounter Details Date Type Department Care Team (Late st Contact Info) Description 09/03/2020 Notes Only [place] [address] Anabella Bright Social History Tobacco Use Types [...] Bright - 09/03/2020 10:41 AM EST Transplant Phosphoric Acid Supervisor Note: Patient's called to inform us that she has filed an appeal for [facility]'s hos. Will await call with decision. [...] EST TH Visit (TeleHealth) Cardiology at [address] [phone] Byron Brown MD [facility] [place] [address] 07/14/2024 10:00 AM EST Hospital Encounter Non-Invasive [place] [address] Arrived documented as of this [...] filedocumented in this encounter Care Teams Senior Software Engineer Relationship Specialty Start Date End Date Urbano Denis DO [address] [place] [address] PCP - General 09/03/12 03/17/22 Ruchi Valles RN Nurse Clinic Transplant Surgery 07/30/15 documented as of this encounter
--- OUTSIDE RECORDS SUMMARY | 2024-05-16 17:21 | XMS_ITS | Encounter Summary ---
[place] [address] Care Team Providers Care Racehorse Trainer Name Role Phone Urbano Denis DO Primary Care Provider [phone] Reason for Visit * Reason Onset Date Comments Post Hospital Discharge 05/14/2020 Encounter Details Date Type Department Care Team (Late st Contact Info) Description 05/14/2020 Tele[place] [phone] Genoveva Willard, RN Post Hospital Discharge Social [...] PM EST Cody Bolden 1950 69 y.o. [id number] F/U call s/p: L L45 discectomy/decompression Date [...] EST TH Visit (TeleHealth) Cardiology at [address] [phone] Byron Brown MD [facility] [place] [address] 07/14/2024 10:00 AM EST Hospital Encounter Non[place] [address] Arrived documented as of this encounter Goals [...] on filedocumented in this encounter Care Teams Racehorse Trainer Relationship Specialty Start Date End Date Urbano Denis DO [address] [place] [address] [address] [facility] [address] [place] [address] PCP - General 09/03/12 03/17/22 Ruchi Valles RN Nurse Clinic Transplant Surgery 07/30/15 documented as of this encounter
--- OUTSIDE RECORDS SUMMARY | 2024-05-16 17:21 | XMS_ITS | Encounter Summary ---
Author Organization Formerly [facility] [place] [address] Care Team Providers Care Clutch Mechanic Name Role Phone Adeel Urbano KIRBY Primary Care Provider Encounter Details Date Type Department Care Team (Late st Contact Info) Description 09/04/2020 Telephone [place] [address] Devi Preciado Social History Tobacco [...] AM EST Visit (TeleHealth) Cardiology at [address] [phone] Byron Brown MD [facility] [place] [address] 07/14/2024 10:00 AM EST Hospital Encounter Non-Invasive [place] [address] Arrived documented as of this [...] on filedocumented in this encounter Care Teams Clutch Mechanic Relationship Specialty Start Date End Date Urbano Denis DO [address] [place] [address] [address] [facility] 1 [place] [address] PCP - General 09/03/12 03/17/22 Ruchi Valles RN Nurse Clinic Transplant Surgery 07/30/15 documented as of this encounter
--- OUTSIDE RECORDS SUMMARY | 2024-05-16 17:21 | XMS_ITS | Encounter Summary ---
Author Organization [facility] [place] [address] Care Team Providers Care Generator Rebuilder Name Role Phone Urbano Denis DO Primary Care Provider Encounter Details Date Type Department Care Team (Late st Contact Info) Description 06/18/2020 Orders [place] [address] Layla Pond RN Spinal stenosis [...] 11:00 AM EST Visit (TeleHealth) Cardiology at [address] [phone] Byron Brown MD [facility] [place] [address] 07/14/2024 10:00 AM EST Hospital Encounter Non[place] [address] Arrived documented as of this encounter Goals [...] present documented in this encounter Care Teams Generator Rebuilder Relationship Specialty Start Date End Date Urbano Denis DO [address] [place] [address] PCP - General 09/03/12 03/17/22 Ruchi Valles RN Nurse Clinic Transplant Surgery 07/30/15 documented as of this encounter
--- OUTSIDE RECORDS SUMMARY | 2024-05-16 17:21 | XMS_ITS | Encounter Summary ---
Author Organization [facility] [place] [address] Care Team Providers Care Hydraulic Billet Maker Name Role Phone Urbano Denis DO Primary Care Provider [phone] Reason for Visit * Reason Comments Medication Refill Encounter Details Date Type Department Care Team (Late st Contact Info) Description 08/16/2020 Refill Cardiology at [address] [phone] Byron Brown MD [facility] [place] [address] Medication Refill Social History Tobacco Use Types [...] EST TH Visit (TeleHealth) Cardiology at [address] [phone] Byron Brown MD [facility] [place] [address] 07/14/2024 10:00 AM [facility] Encounter Non-[place]vasive [place] [phone] Arrived documented as of this encounter Goals [...] fibrillation documented in this encounter Care Teams Hydraulic Billet Maker Relationship Specialty Start Date End Date Urbano Denis DO [address] [place] [address] PCP - General 09/03/12 03/17/22 Ruchi Valles RN Nurse Clinic Transplant Surgery 07/30/15 documented as of this encounter
--- OUTSIDE RECORDS SUMMARY | 2024-05-16 17:21 | XMS_ITS | Encounter Summary ---
Author Organization [facility] [place] [address] Care Team Providers Care Merit System Director Name Role Phone Adeel Urbano KIRBY Primary Care Provider [phone] Reason for Visit * Reason Onset Date Comments TeleHealth 06/14/2020 Appt 06/15/20 Encounter Details Date Type Department Care Team (Late st Contact Info) Description 06/14/2020 Telephone [place] [address] Karie Reid HEATING EQUIPMENT INSTALLER [facility] [place] [address] TeleHealth (Appt 06/15/20) Social History Tobacco Use [...] EST TH Visit (TeleHealth) Cardiology at [address] [phone] Byron Brown MD [facility] [place] [address] 07/14/2024 10:00 AM EST Hospital Encounter Non[place] [address] Arrived documented as of this [...] on filedocumented in this encounter Care Teams Merit System Director Relationship Specialty Start Date End Date Urbano Denis DO [address] [place] [address] PCP - General 09/03/12 03/17/22 Ruchi Valles RN Nurse Clinic Transplant Surgery 07/30/15 documented as of this encounter
--- OUTSIDE RECORDS SUMMARY | 2024-05-16 17:21 | XMS_ITS | Encounter Summary ---
Author Organization [facility] Address [facility] [place] [address] Care Team Providers Care Student Admissions Clerk Name Role Phone Adeel Urbano KIRBY Primary Care Provider + [phone] Reason for Visit * Reason Onset Date Comments Medication Refill 09/24/2020 Encounter Details Date Type Department Care Team (Late st Contact Info) Description 09/24/2020 Refill Cardiology at [address] [phone] Byron Brown MD [facility] [place] [address] Medication Refill Social History Tobacco Use Types [...] to pay for some of this medication [id number] first Would like the Rx to go to [facility] to meet this requirement. Reviewed the office note from patient's 09/14/[address] Brown. Rx prepared as requested and forwarded to provider for their approval. Anel Proctor RN, BSN Ambulatory Cardiology Department documented in this encounter Plan of Treatment Upcoming Encounters Date Type Department Care Team (Late st Contact Info) Description 06/22/2024 11:00 AM EST TH Visit (TeleHealth) Cardiology at [address] [phone] Byron Brown MD [facility] [place] [address] 07/14/2024 10:00 AM EST Hospital Encounter Non-Invasive [place] [phone] Arrived documented as of this encounter Goals Goal Patient Goal Type Associated Problems Recent Progress Patient-Stated? Author DH [place] Medication Compliance and Understanding Patient Facing Action Plan On track( 017 10:41 AM EDT) Selena Scott, [facility] Note: Patient Goal: Clear hepatitis C Timeframe to meet goal: within 12 weeks of therapy documented as of this encounter Visit Diagnoses Diagnosis Atrial fibrillation with RVR - had flutter initially, then fib Atrial fibrillation documented in this encounter Care Teams Student Admissions Clerk Relationship Specialty Start Date End Date Urbano Denis DO [address] [place] [address] PCP - General 09/03/12 03/17/22 Hai STANLEY,Ruchi Nurse Clinic Transplant Surgery 07/30/15 documented as of this encounter
--- OUTSIDE RECORDS SUMMARY | 2024-05-16 17:21 | XMS_ITS | Encounter Summary ---
[place] [address] Care Team Providers Care Resolute Professional Name Role Phone Urbano Denis DO Primary Care Provider Encounter Details Date Type Department Care Team (Late st Contact Info) Description 07/26/2020 Telephone Cardiology at [address] [phone] Anel Proctor, RN Social History Tobacco Use [...] Brown complete the provider portion of the [place] Celia Squibb-2020 Patient Assistance Application for Eliquis. [...] EST TH Visit (TeleHealth) Cardiology at [address] [phone] Byron Brown MD [facility] [place] [address] 07/14/2024 10:00 AM EST Hospital Encounter Non-Invasive [place] [phone] Arrived documented as of this encounter Goals [...] on filedocumented in this encounter Care Teams Resolute Professional Relationship Specialty Start Date End Date Urbano Denis DO [address] [place] [address] PCP - General 09/03/12 03/17/22 Ruchi Valles RN Nurse Clinic Transplant Surgery 07/30/15 documented as of this encounter
--- OUTSIDE RECORDS SUMMARY | 2024-05-16 17:22 | XMS_ITS | Encounter Summary ---
Author Organization [facility] [place] [address] Care Team Providers Care Fire Department Battalion Chief Name Role Phone AdeelUrbano toscano Primary Care Provider [phone] Encounter Details Date Type Department Care Team (Late st Contact Info) Description 01/04/2020 Telephone [place] [address] Lazara Bhatia, RN Social History Tobacco Use [...] I would reorder a tacrolimus level to [facility] and that he should hold his tacrolimus dose prior to the blood draw. Cody verbalized understanding. documented in this encounter Plan of Treatment Upcoming Encounters Date Type Department Care Team (Late st Contact Info) Description 06/22/2024 11:00 AM EST TH Visit (TeleHealth) Cardiology at [address] [phone] Byron Brown MD [facility] [place] [address] 07/14/2024 10:00 AM EST Hospital Encounter Non[place] [address] Arrived documented as of this [...] transplant documented in this encounter Care Teams Fire Department Battalion Chief Relationship Specialty Start Date End Date Urbano Denis DO [address] [place] [address] PCP - General 09/03/12 03/17/22 Ruchi Valles RN Nurse Clinic Transplant Surgery 07/30/15 documented as of this encounter
--- OUTSIDE RECORDS SUMMARY | 2024-05-16 17:22 | XMS_ITS | Encounter Summary ---
Author Organization [facility] [place] [address] Care Team Providers Care Pattern Scratcher Name Role Phone AdeelUrbano boland Primary Care Provider [phone] Encounter Details Date Type Department Care Team (Late st Contact Info) Description 03/27/2020 Notes [place] [address] Joseph Ang MD [facility] [place] [address] Social History Tobacco Use Types Packs/Day Years [...] and note patient scheduling for surgery at [facility] by Dr. Leal due to progressive neurological [...] EST TH Visit (TeleHealth) Cardiology at [address] [phone] Byron Brown MD [facility] [place] [address] 07/14/2024 10:00 AM EST Hospital Encounter Non-[place] [address] Arrived documented as of this [...] on filedocumented in this encounter Care Teams Pattern Scratcher Relationship Specialty Start Date End Date Urbano Denis DO [address] [facility] [address] [place] [address] PCP - General 09/03/12 03/17/22 Ruchi Valles RN Nurse Clinic Transplant Surgery 07/30/15 documented as of this encounter
--- OUTSIDE RECORDS SUMMARY | 2024-05-16 17:22 | XMS_ITS | Encounter Summary ---
Author Organization [facility] [place] [address] Care Team Providers Care Night Shift Supervisor Name Role Phone AdeelUrbano boland Primary Care Provider [phone] Encounter Details Date Type Department Care Team (Late st Contact Info) Description 07/29/2019 Abstract [place] [phone] Tal Eagle MD [facility] DR [place] [address] Social History Tobacco Use Types Packs/Day Years [...] 11:00 AM EST Visit (TeleHealth) Cardiology at [address] [phone] Byron Brown MD [facility] [place] [address] 07/14/2024 10:00 AM EST Hospital Encounter Non[place] [address] Arrived documented as of this encounter Goals [...] on filedocumented in this encounter Care Teams Night Shift Supervisor Relationship Specialty Start Date End Date Urbano Denis DO [address] [place] [address] [address] [facility] 1 [place] [address] PCP - General 09/03/12 03/17/22 Ruchi Valles RN Nurse Clinic Transplant Surgery 07/30/15 documented as of this encounter
--- OUTSIDE RECORDS SUMMARY | 2024-05-16 17:22 | XMS_ITS | Encounter Summary ---
Author Organization [facility] Address [facility] [place] [address] Care Team Providers Care Parking Lot Laborer Name Role Phone Urbano Denis DO Primary Care Provider [phone] Encounter Details Date Type Department Care Team (Late st Contact Info) Description 02/17/2020 2:20 PM EDT Office Visit Cardiology at [address] [phone] Naif Garibay MD [facility] [place] [address] Coronary artery disease involving cher-ae heights heart, angina presence unspecified, unspecified vessel or lesion type; Atrial fibrillation with RVR - had flutter initially, then fib; Coronary artery disease, angina presence unspecified, unspecified vessel or lesion type, unspecified whether cher-ae heights or transplanted heart; Hypertension secondary to other [...] original note were not included. [facility] [place] [address] Subjective: Patient ID: Cody Bolden is a 69 y.o. male. Patient for Dr Brown, last seen by telemedicine in11/2019. He now is here for cardiovascular exam before back surgery at [facility]. Patient Active Problem List Diagnosis ??? CAD [...] has one building with 8 units in [place], [place]). He uses his pushmower. Review of [...] QTC Calculated (Bezet) 435 ms Calculated P [place] 49 degrees Calculated R [place] -65 degrees Calculated T [place] -5 degrees INTERPRETATION Sinus bradycardia Left anterior [...] back surgery to lower risk of periop UT or stent thrombosis. 25 minutes of this [...] back surgery to lower risk of periop UT or stent thrombosis. * Assessment & Plan [...] EST TH Visit (TeleHealth) Cardiology at [address] [phone] Byron Brown MD [facility] [place] [address] 07/14/2024 10:00 AM EST Hospital Encounter Non-Invasive [place] [address] Arrived documented as of [...] unspecified vessel or lesion type, unspecified whether cher-ae heights or transplanted heart documented in this encounter Results * EKG 12 Lead (02/17/2020 2:13 PM EDT) Ventricular rate 51 BPM MUSE SYSTEM Atrial Rate 51 BPM MUSE SYSTEM P-R Interval 200 ms MUSE SYSTEM QRS Duration 120 ms MUSE SYSTEM Q-T Interval 472 ms MUSE SYSTEM QTC Calculated (Bezet) 435 ms MUSE SYSTEM Calculated P [place] 49 degrees MUSE SYSTEM Calculated R [place] -65 degrees MUSE SYSTEM Calculated T [place] -5 degrees MUSE SYSTEM INTERPRETATION Sinus bradycardia Left anterior fascicular block Left ventricular hypertrophy with QRS widening Abnormal ECG When compared with ECG of 31-MAR-2019 13:58, No significant change was found Confirmed by MD Phillip Daniel ([id number]) on 02/17/2020 5:16:28 PM MUSE SYSTEM 02/17/2020 2:13 PM EDT 02/17/2020 5:16 PM EDT Danny Hicks MD ECG ORDERABLES MUSE SYSTEM documented in this encounter Visit Diagnoses Diagnosis Coronary artery disease involving cher-ae heights heart, angina presence unspecified, unspecified vessel or lesion type Atrial fibrillation with RVR - had flutter initially, then fib Atrial fibrillation Coronary artery disease, angina presence unspecified, unspecified vessel or lesion type, unspecified whether cher-ae heights or transplanted heart Hypertension secondary to other renal disorders documented in this encounter Care Teams Parking Lot Laborer Relationship Specialty Start Date End Date Urbano Denis DO [address] [place] [address] PCP - General 09/03/12 03/17/22 Ruchi Valles RN Nurse Clinic Transplant Surgery 07/30/15 documented as of this encounter
--- OUTSIDE RECORDS SUMMARY | 2024-05-16 17:22 | XMS_ITS | Encounter Summary ---
[place] [address] Care Team Providers Care Global Clinical Leader Name Role Phone AdeelUrbano toscano Primary Care Provider Encounter Details Date Type Department Care Team (Late st Contact Info) Description 12/30/2019 Telephone Cardiology at [address] [phone] Sera Aguillon RN Social History Tobacco Use [...] EST TH Visit (TeleHealth) Cardiology at [address] [phone] Byron Brown MD [facility] [place] [address] 07/14/2024 10:00 AM EST Hospital Encounter Non-Invasive Cardiology Lab [facility] [address] Arrived documented as of this encounter Goals [...] filedocumented in this encounter Care Teams Global Clinical Leader Relationship Specialty Start Date End Date Urbano Denis DO [address] [place] [address] PCP - General 09/03/12 03/17/22 Ruchi Valles RN Nurse Clinic Transplant Surgery 07/30/15 documented as of this encounter
--- OUTSIDE RECORDS SUMMARY | 2024-05-16 17:22 | XMS_ITS | Encounter Summary ---
Author Organization [facility] Address [facility] [place] [address] Care Team Providers Care Pierogi Maker Name Role Phone AdeelUrbano toscano Primary Care Provider [phone] Reason for Visit * Reason Onset Date Comments Medication Refill 10/28/2019 Encounter Details Date Type Department Care Team (Late st Contact Info) Description 10/28/2019 Refill [place] [phone] Tal Eagle MD [facility] [place] [address] Social History Tobacco Use Types Packs/Day Years [...] EST TH Visit (TeleHealth) Cardiology at [address] [phone] Byron Brown MD [facility] [place] [address] 07/14/2024 10:00 AM [facility] Hospital Encounter Non-[place]vasive [place] [address] Arrived documented as of this [...] on filedocumented in this encounter Care Teams Pierogi Maker Relationship Specialty Start Date End Date Urbano Denis DO [address] [place] [address] PCP - General 09/03/12 03/17/22 Ruchi Valles RN Nurse Clinic Transplant Surgery 07/30/15 documented as of this encounter
--- OUTSIDE RECORDS SUMMARY | 2024-05-16 17:22 | XMS_ITS | Encounter Summary ---
Author Organization [facility] [place] [address] Care Team Providers Care Paper Mill Supervisor Name Role Phone Adeel Urbano KIRBY Primary Care Provider Encounter Details Date Type Department Care Team (Late st Contact Info) Description 09/07/2019 Orders Only [place] [address] Dominique Jackson RN H/O kidney [...] EST TH Visit (TeleHealth) Cardiology at [address] [address] Byron Brown MD [facility] [place] [address] 07/14/2024 10:00 AM EST Hospital Encounter [place] [address] Arrived documented as of this [...] 10:23 AM EDT) Creatinine, Urine 107 mg/dL [facility] Protein, Urine 67(H) 0 - 12 mg/dL [facility] Protein / Creatinine Ratio, Urine 0.6 ratio [facility] Urine specimen (specimen) 09/12/2019 10:23 AM EDT 09/12/2019 10:32 AM EDT Narrative Resulting Agency Comment Spec In Lab Tal Eagle MD URINE ORDERABLES [facility] [place] [id number] * (ABNORMAL) Urinalysis with reflex Culture (09/12/2019 [...] [facility] pH, Urn (dipstick) 6.5 5.0 - 8.0 [facility] Blood, Urine Dipstick Negative Negative mg/dL [facility] Ketone, Urine Dipstick Negative Negative mg/dL [facility] Nitrite, Urine Dipstick Negative Negative [facility] Leukocytes, Urine Dipstick Negative Negative [facility] Appearance, Urine Dipstick Clear Clear [facility] Specific Success Urine Automated 1.022 1.002 - 1.030 [facility] Color, Urine Dipstick Yellow Yellow [facility] Reflex to Culture No [facility] Urine specimen (specimen) 09/12/2019 10:23 AM EDT 09/12/2019 10:31 AM EDT Narrative Resulting Agency Comment Spec In Lab Tal Eagle MD URINE ORDERABLES Performing Organization Address [facility] Co de Phone Number [facility] [place] [address] * Creatinine, urine, random (09/12/2019 10:23 AM EDT) Creatinine, Urine 107 mg/dL [facility] Urine specimen (specimen) 09/12/2019 10:23 AM EDT 09/12/2019 10:32 AM EDT Narrative Resulting Agency Comment Spec In Lab Tal Eagle MD URINE ORDERABLES Performing Organization Address [facility] Co de Phone Number [facility] [place] [address] * (ABNORMAL) Magnesium (09/12/2019 10:10 AM EDT) Magnesium 0.68(L) 0.69 - 1.07 mmol/L [facility] Blood specimen (specimen) 09/12/2019 10:10 AM EDT 09/12/2019 10:22 AM EDT Narrative Resulting Agency Comment Spec In Lab Tal Eagle MD CHEMISTRY ORDERAB LES Performing Organization Address [facility] Co de Phone Number [facility] [place] [address] * Phosphorus (09/12/2019 10:10 AM EDT) Phosphorus 2.5 2.5 - 4.5 mg/dL [facility] Blood specimen (specimen) 09/12/2019 10:10 AM EDT 09/12/2019 10:22 AM EDT Narrative Resulting Agency Comment Spec In Lab Tal Eagle MD CHEMISTRY ORDERAB LES Performing Organization Address [facility] Co de Phone Number [facility] [place] [address] * PTH (09/12/2019 10:10 AM EDT) Parathyroid Hormone 51 15 - 65 pg/mL [facility] Blood specimen (specimen) 09/12/2019 10:10 AM EDT 09/12/2019 10:22 AM EDT Narrative Resulting Agency Comment Spec In Lab Tal Eagle MD CHEMISTRY ORDERAB LES Performing Organization Address [facility] de Phone Number [facility] [place] [address] * Reticulocyte Count (09/12/2019 10:10 AM EDT) Reticulocyte % 2.1 0.7 - 2.6 % [facility] Retic Abs # 0.100 0.030 - 0.120 x10(6)/mcL [facility] Immature Retic% 11.9 0.0 - 15.6 % [facility] Reticulated Hgb 35.8 31.3 - 40.2 pg [facility] Blood specimen (specimen) 09/12/2019 10:10 AM EDT 09/12/2019 10:22 AM EDT Narrative Resulting Agency Comment Spec In Lab Tal Eagle MD HEMATOLOGY ORDERA BLES Performing Organization Address [facility] Co de Phone Number [facility] [place] [address] * Tacrolimus level (09/12/2019 10:10 AM EDT) Tacrolimus 5.4 ng/mL [facility] Comment: Trough therapeutic: ??5-15 ng/mL Performed by ultra-performance liquid chromatography tandem mass spectrometry (UPLCMS/MS). This test was developed and its performance characteristics determined by [facility]. It has not been cleared or [...] ORDERAB LES Performing Organization Address [facility] Co de Phone Number [facility] [place] [address] * Uric acid (09/12/2019 10:10 AM EDT) Uric Acid 6.7 3.5 - 8.5 mg/dL [facility] Blood specimen (specimen) 09/12/2019 10:10 AM EDT 09/12/2019 10:22 AM EDT Narrative Resulting Agency Comment Spec In Lab Tal Eagle MD CHEMISTRY ORDERAB LES Performing Organization Address [facility] Co de Phone Number [facility] [place] [address] * Vitamin B12 (09/12/2019 10:10 AM EDT) Vitamin B12 416 232 - 1,245 pg/mL [facility] Blood specimen (specimen) 09/12/2019 10:10 AM EDT 09/12/2019 10:22 AM EDT Narrative Resulting Agency Comment Spec In Lab Tal Eagle MD CHEMISTRY ORDERAB LES Performing Organization Address [facility] Co de Phone Number [facility] [place] [address] * 1,25-dihydroxycholecalciferol (09/12/2019 10:10 AM EDT) [facility] Vit D 1,25 Dihydroxy (NOVEMBER) 46 18 - 64 pg/mL [facility] Comment: ADDITIONAL INFORMATION This test was developed and its performance characteristics determined by [facility] in a manner consistent with CLIA requirements. This test has not been cleared or approved by the U.S. Food and Drug Administration. Test Performed by: [address] [address] Protozoology Teacher: Edinson Garcia M.D. Ph.D.; CLIA# [id number] Blood specimen (specimen) 09/12/2019 10:10 AM EDT 09/12/2019 4:17 PM EDT Narrative Resulting Agency Comment Spec In Lab Tal Eagle MD LAB SEND OUT ROCHELLE JENNINGS Performing Organization Address City/[facility] Co de Phone Number [facility] [place] [address] * (ABNORMAL) Vitamin D, 25-Hydroxy (09/12/2019 10:10 AM EDT) [facility] Vitamin D Total 25 OH 17(L) 30 - 100 ng/mL [facility] Comment: As of 2019, 25-hydroxyvitamin D testing has moved from the [employer] to the [employer]. No substantial change in measured values is expected. Blood specimen (specimen) 09/12/2019 10:10 AM EDT 09/12/2019 10:22 AM EDT Narrative Resulting Agency Comment Spec In Lab Tal Eagle MD CHEMISTRY ORDERAB LES Performing Organization Address City/[facility]/ZIP Co de Phone Number [facility] [place] [address] * Lipid Panel (Reflex Direct LDL) (09/12/2019 10:10 AM EDT) Cholesterol, Total 84 mg/dL [facility] Comment: Lower Risk: <200 mg/dL Average Risk: 200-239 mg/dL Higher Risk: >jl=250 mg/dL Triglyceride 104 mg/dL [facility] Comment: Average Risk/Lower Risk: <150 mg/dL Borderline High Risk: 150-199 mg/dL High Risk: 200-499 mg/dL Very High Risk: >bb=024 mg/dL HDL Cholesterol 40 mg/dL [facility] Comment: Males: ?? Higher Risk: <40 mg/dL Females: ?? HIgher Risk: <50 mg/dL LDL Cholesterol 23 mg/dL [facility] Comment: Lowest Risk: <100 mg/dL Lower Risk: 100-129 mg/dL Borderline High Risk: 130-159 mg/dL High Risk: 160-189 mg/dL Very High Risk: >ft=108 mg/dL Cholesterol/HDL Ratio 2.1 ratio [facility] Lipid Interpretation See Note [facility] Comment: Lipid management should be guided by a patient? s ASCVD risk, goals and preferences. ACC/AHA Guidelines recommend high intensity statin if clinical ASCVD or LDL greater than or equal to 190 mg/dL. http://[employer].com/UKY-QVQ-Fnnwhlwpb Adults aged 40-75 with LDL 70-189 mg/dL should have their 10 year ASCVD risk estimated with the ACC/AHA ASCVD risk wheat cleaner http://tools.acc.org/XIGXS-Qenm-Wxwdkjcbt/ Statin should be discussed if risk greater [...] ORDERAB LES Performing Organization Address [facility] Co de Phone Number [facility] [place] [address] * (ABNORMAL) Lipase (09/12/2019 10:10 AM EDT) Lipase 71(H) 0 - 60 unit/L [facility] Blood specimen (specimen) 09/12/2019 10:10 AM EDT 09/12/2019 10:22 AM EDT Narrative Resulting Agency Comment Spec In Lab Tal Eagle MD CHEMISTRY ORDERAB LES Performing Organization Address [facility] de Phone Number [facility] [place] [address] * Lavender Tube HOLD (09/12/2019 10:10 AM EDT) Lavender Hold Sample in lab. [facility] Blood specimen (specimen) 09/12/2019 10:10 AM EDT 09/12/2019 10:22 AM EDT Tal Eagle MD HEMATOLOGY ORDERA BLES Performing Organization Address [facility] de Phone Number [facility] [place] [address] * Iron and TIBC (09/12/2019 10:10 AM EDT) Iron 82 45 - 160 mcg/dL [facility] TIBC 269 250 - 450 mcg/dL [facility] Iron Saturation 30 20 - 50 % [facility] Blood specimen (specimen) 09/12/2019 10:10 AM EDT 09/12/2019 10:22 AM EDT Narrative Resulting Agency Comment Spec In Lab Tal Eagle MD CHEMISTRY ORDERAB LES Performing Organization Address City/[facility]/ZIP Co de Phone Number [facility] [place] [address] * (ABNORMAL) Hemoglobin A1c (09/12/2019 10:10 AM EDT) Hemoglobin A1c 7.1(H) 4.3 - 5.6 % [facility] Comment: Reference Range: 4.3 [...] S67-74 Estimated Average Glucose See note mg/dL [facility] Comment: Estimated Average Glucose [...] into estimated average glucose values. ??Diabetes Care 2008:31(8):8646-3132. Blood specimen (specimen) 09/12/2019 10:10 AM EDT 09/12/2019 10:23 AM EDT Narrative Resulting Agency Comment Spec In Lab Tal Eagle MD CHEMISTRY ORDERAB LES Performing Organization Address [facility] Co de Phone Number [facility] [place] [address] * Gold Tube HOLD (09/12/2019 10:10 AM EDT) Gold Hold Sample in lab. [facility] Blood specimen (specimen) 09/12/2019 10:10 AM EDT 09/12/2019 10:22 AM EDT Tal Eagle MD CHEMISTRY ORDERAB LES Performing Organization Address [facility] Co de Phone Number [facility] [place] [address] * Folate, serum (09/12/2019 10:10 AM EDT) Folate 9.3 4.8 - 24.2 ng/mL [facility] Blood specimen (specimen) 09/12/2019 10:10 AM EDT 09/12/2019 10:22 AM EDT Narrative Resulting Agency Comment Spec In Lab Tal Eagle MD CHEMISTRY ORDERAB LES Performing Organization Address [facility] Co de Phone Number [facility] [place] [address] * Ferritin (09/12/2019 10:10 AM EDT) Ferritin 246 30 - 400 ng/mL [facility] Comment: Pediatric reference ranges not verified at [facility], interpret with caution. Reference ranges for females greater than 50 years of age approach values for men, i.e., 30-400 ng/mL. Blood specimen (specimen) 09/12/2019 10:10 AM EDT 09/12/2019 10:22 AM EDT Narrative Resulting Agency Comment Spec In Lab Tal Eagle MD CHEMISTRY ORDERAB LES [facility] [place] [address] * (ABNORMAL) CMP w/fasting Glucose (09/12/2019 10:10 AM EDT) Glucose Fasting 153(H) 65 - 99 mg/dL [facility] of Diabetes Mellitus, Position Statement from the [place] [employer]. ??Diabetes Care, Volume 33, Supplement 1, Jul 2009 Blood Urea Nitrogen 16 10 - 20 mg/dL [facility] Creatinine 1.43 0.80 - 1.50 mg/dL [facility] Sodium 142 135 - 145 mmol/L [facility] Potassium 3.7 3.5 - 5.0 mmol/L [facility] Comment: Please note: ??Patients with WBC >100,000 may have falsely elevated Potassium levels. ??For accurate Potassium quantification in these patients send serum separator tube (gold top) for subsequent determinations. ??Contact the Clinical Chemistry Laboratory if there are any questions. Chloride 103 98 - 107 mmol/L [facility] Carbon Dioxide 28 22 - 31 mmol/L [facility] Anion Gap 11 5 - 15 mmol/L [facility] Calcium 9.7 8.5 - 10.5 mg/dL [facility] Protein, Total 7.1 6.1 - 8.0 gm/dL [facility] Albumin 4.1 3.2 - 5.2 gm/dL [facility] Aspartate Aminotransferase 18 0 - 39 unit/L [facility] Alanine Aminotransferase 16 0 - 55 unit/L [facility] Alkaline Phosphatase 69 40 - 130 unit/L [facility] Bilirubin, Total 2.5(H) 0.2 - 1.3 mg/dL [facility] Est Glomerular Filtration Rate 49(L) >=60 mL/min/1. 73 m?? [facility] Comment: The eGFR was calculated using the CKD-EPI equation. As with all creatinine based estimates of kidney function, eGFR values calculated with the CKD-EPI equation are not accurate in patients with acute kidney failure, extremes of body mass or the acutely ill. http://[employer]/[facility] eGFR 57(L) >=60 mL/min/1. 73 m?? [facility] Comment: The eGFR was calculated using the CKD-EPI equation. As with all creatinine based estimates of kidney function, eGFR values calculated with the CKD-EPI equation are not accurate in patients with acute kidney failure, extremes of body mass or the acutely ill. http://[employer]/[facility] Blood specimen (specimen) 09/12/2019 10:10 AM EDT 09/12/2019 10:22 AM EDT Narrative Resulting Agency Comment Spec In Lab Tal Eagle MD CHEMISTRY ORDERAB LES Performing Organization Address City/State/[facility] Co de Phone Number [facility] [place] [address] * Amylase (09/12/2019 10:10 AM EDT) Amylase 46 28 - 100 unit/L [facility] Blood specimen (specimen) 09/12/2019 10:10 AM EDT 09/12/2019 10:22 AM EDT Narrative Resulting Agency Comment Spec In Lab Tal Eagle MD CHEMISTRY ORDERAB LES [facility] [place] [address] documented in this encounter Visit Diagnoses Diagnosis H/O kidney transplant Kidney replaced by transplant documented in this encounter Care Teams Paper Mill Supervisor Relationship Specialty Start Date End Date Urbano Denis DO [address] [place] [address] PCP - General 09/03/12 03/17/22 Ruchi Valles RN Nurse Clinic Transplant Surgery 07/30/15 documented as of this encounter
--- OUTSIDE RECORDS SUMMARY | 2024-05-16 17:22 | XMS_ITS | Encounter Summary ---
Author Organization [facility] [place] [address] Care Team Providers Care Vehicle Care Specialist Name Role Phone Urbano Denis DO Primary Care Provider [phone] Encounter Details Date Type Department Care Team (Late st Contact Info) Description 04/11/2020 3:00 PM EDT [place] [address] Social History Tobacco Use Types [...] EST TH Visit (TeleHealth) Cardiology at [address] [address] Byron Brown MD [facility] [address] 07/14/2024 10:00 AM EST Hospital Encounter Non-[place]vasive [place] [address] Arrived documented as of this [...] filedocumented in this encounter Care Teams Vehicle Care Specialist Relationship Specialty Start Date End Date Urbano Denis DO [address] [place] [address] [address] [facility] [place] [address] PCP - General 09/03/12 03/17/22 Ruchi Valles RN Nurse Clinic Transplant Surgery 07/30/15 documented as of this encounter
--- OUTSIDE RECORDS SUMMARY | 2024-05-16 17:22 | XMS_ITS | Encounter Summary ---
Author Organization [facility] [place] [address] Care Team Providers Care Servicing Rep Name Role Phone AdeelUrbano toscano Primary Care Provider Reason for Visit * Reason Comments Medication Refill Encounter Details Date Type Department Care Team (Late st Contact Info) Description 10/14/2019 Refill [place] [address] Tal Eagle MD [facility] [place] [address] Social History Tobacco Use Types Packs/Day Years [...] EST TH Visit (TeleHealth) Cardiology at [address] [address] Byron Brown MD [facility] [place] [address] 07/14/2024 10:00 AM [facility] Encounter Non-Invasive [place] [phone] Arrived documented as of this encounter Goals [...] on filedocumented in this encounter Care Teams Servicing Rep Relationship Specialty Start Date End Date Urbano Denis DO [address] [place] [address] [address] [facility] [place] [address] PCP - General 09/03/12 03/17/22 Ruchi Valles RN Nurse Clinic Transplant Surgery 07/30/15 documented as of this encounter
--- OUTSIDE RECORDS SUMMARY | 2024-05-16 17:22 | XMS_ITS | Encounter Summary ---
Author Organization [facility] [place] [address] Care Team Providers Care It Project Manager Name Role Phone AdeelUrbano boland Primary Care Provider + [phone] Reason for Visit * Reason Onset Date Comments Medication Refill 02/07/2020 Encounter Details Date Type Department Care Team (Late st Contact Info) Description 02/07/2020 Refill Cardiology at [address] [address] Byron Brown MD [facility] [place] [address] Medication Refill Social History Tobacco Use Types [...] EST TH Visit (TeleHealth) Cardiology at [address] [phone] Byron Brown MD [facility] [place] [place] [address] 07/14/2024 10:00 AM EST Hospital Encounter Non-[place] [address] Arrived documented as of this encounter Goals [...] unspecified vessel or lesion type, unspecified whether [place] or transplanted heart documented in this encounter Care Teams It Project Manager Relationship Specialty Start Date End Date Urbano Denis DO [address] [place] [address] [address] [facility] [place] [address] PCP - General 09/03/12 03/17/22 Ruchi Valles RN Nurse Clinic Transplant Surgery 07/30/15 documented as of this encounter
--- OUTSIDE RECORDS SUMMARY | 2024-05-16 17:22 | XMS_ITS | Encounter Summary ---
Author Organization [facility] [place] [address] Care Team Providers Care Grey Tender Name Role Phone Urbano Denis DO Primary Care Provider + [phone] Encounter Details Date Type Department Care Team (Late st Contact Info) Description 11/24/2019 9:20 AM EDT TH Visit (TeleHealth) Cardiology at [address] [address] Byron Brown MD [facility] [place] [address] Atrial fibrillation with RVR - had flutter initially, then fib; Coronary artery disease, angina presence unspecified, unspecified vessel or lesion type, unspecified whether [place] or transplanted heart Social History Tobacco Use [...] from the original note were not included. [facility] [place] [address] CARDIOLOGY/ VASCULAR OUTPATIENT NOTE Cody Bolden Urbano [...] significant cardiac history but was admitted to [facility] in January 2019 with newly diagnosed AFlutter [...] placed on plavix by a neurologist at [facility] (Shannan Redmond). There was some question about CVA/TIA at that time. He was later seen by a lining strap closer at [facility] (Petar) who obtained a ZIO that [...] 6 months or prn. Byron Brown MD, [facility] Cardiovascular Medicine [facility] Clinic scheduling: Trinidad Burgosson [phone] Clinic Team Nurse: Anel Proctor RN [phone] I provided care to the patient today via telephone / video conference. The total time associated with this visit was 25 minutes. documented in this encounter Plan of Treatment Upcoming Encounters Date Type Department Care Team (Late st Contact Info) Description 06/22/2024 11:00 AM EST Visit (TeleHealth) Cardiology at [address] [address] Byron Brown MD [facility] [place] [place] [address] 07/14/2024 10:00 AM EST Hospital Encounter Non-Invasive [place] [phone] Arrived documented as of this encounter Goals [...] unspecified vessel or lesion type, unspecified whether [place] or transplanted heart documented in this encounter Care Teams Grey Tender Relationship Specialty Start Date End Date Urbano Denis DO [address] [place] [address] PCP - General 09/03/12 03/17/22 Ruchi Valles RN Nurse Clinic Transplant Surgery 07/30/15 documented as of this encounter
--- OUTSIDE RECORDS SUMMARY | 2024-05-16 17:22 | XMS_ITS | Encounter Summary ---
Author Organization [facility] [place] [address] Care Team Providers Care Chief Librarian Music Department Name Role Phone Urbano Denis DO Primary Care Provider + [phone] Reason for Visit * Reason Onset Date Comments Medication Refill 07/28/2019 Encounter Details Date Type Department Care Team (Late st Contact Info) Description 07/28/2019 Refill Cardiology at [address] [phone] Byron Brown MD [facility] [place] [address] Medication Refill Social History Tobacco Use Types [...] EST TH Visit (TeleHealth) Cardiology at [address] [phone] Byron Brown MD [facility] [place] [address] 07/14/2024 10:00 AM [facility] Encounter Non-[place]vasive [place] [address] Arrived documented as of this [...] documented in this encounter Care Teams Chief Librarian Music Department Relationship Specialty Start Date End Date Urbano Denis DO [address] [place] [address] PCP - General 09/03/12 03/17/22 Ruchi Valles RN Nurse Clinic Transplant Surgery 07/30/15 documented as of this encounter
--- OUTSIDE RECORDS SUMMARY | 2024-05-16 17:22 | XMS_ITS | Encounter Summary ---
Author Organization [facility] [place] [address] Care Team Providers Care Business Risk Analyst Name Role Phone Urbano Denis DO Primary Care Provider [phone] Encounter Details Date Type Department Care Team (Late st Contact Info) Description 09/19/2019 Telephone Cardiology at [address] [phone] Matti-Giovanna Hawkins, RN Social History Tobacco Use [...] EST TH Visit (TeleHealth) Cardiology at [address] [phone] Byron Brown MD [facility] [place] [address] 07/14/2024 10:00 AM EST Hospital Encounter Non-[place] [address] Arrived documented as of this encounter Goals Goal Patient Goal Type Associated Problems Recent Progress Patient-Stated? Author [facility] Medication Compliance and Understanding Patient Facing Action Plan On track( 017 10:41 AM EDT) No Selena Cisneros, [facility] Note: Patient Goal: Clear hepatitis C Timeframe to meet goal: within 12 weeks of therapy documented as of this encounter Visit Diagnoses Not on filedocumented in this encounter Care Teams Business Risk Analyst Relationship Specialty Start Date End Date Urbano Denis DO [address] [place] [address] PCP - General 09/03/12 03/17/22 Ruchi Valles RN Nurse Clinic Transplant Surgery 07/30/15 documented as of this encounter
--- OUTSIDE RECORDS SUMMARY | 2024-05-16 17:22 | XMS_ITS | Encounter Summary ---
Author Organization [facility] Address [facility] [place] [address] Care Team Providers Care Rn Call Center Name Role Phone Urbano Denis DO Primary Care Provider + [phone] Reason for Visit * Reason Comments Advice Only s/p discuss surgery - lumbar decompression Encounter Details Date Type Department Care Team (Late st Contact Info) Description 04/11/2020 12:30 PM EDT [place] [address] Joseph Ang MD [facility] [place] [address] Spinal stenosis of lumbar region, unspecified whether [...] included. Neurosurgery Pre-operative H&P 04/19/2020 Cody Bolden [id number] CC: Preop discussion - reschedule from [facility] for left L45 MIS decompression HPI: Cody Bolden is a 69 y.o. male presents for continued discussion regarding Dr. Brennanlanned procedure for left L45 decompression. Previous Telehealth Visit Reviewed (Mark Torres 03/27/2020): Thank you for referring your patient Cody Bolden to the Neurosurgery [facility] at [facility] for evaluation of lumbar spinal stenosis. As you know, Mr. Bolden is a pleasant 69 y.o. male who was set to undergo L4-[address] [place] [facility] and complexity of care given [...] small bouts of incontinence. 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 Past medical history is extensive and well documented in his problem list including DM, NM this February and received a stent, and [...] that we would need to get his knife setter grinder machine's approval to holdapixaban prior to injection and [...] but both his apixaban use status post NM with stent and he is chronic immunosuppression [...] EXTREMITY performed by Que Amaro MD at [facility] OR ??? PRO CYSTOURETHROSCOPY, URETER CATHETER Left 06/17/2018 CYSTO, RETROGRADE, URETEROPYELOGRAPHY (WRVU 2.37) performed [facility] Edinson Grider III[facility] ??? PRO REIMPLANT URETER, SINGLE URETER Left 05/20/2016 @URETERONEOCYSTOSTOMY ANASTOMOSIS OF SINGLE URETER TO BLADDER performed by Santosh Arredondo MD at [facility] OR ??? PRO REIMPLANT URETER, SINGLE URETER N/A 05/20/2016 @URETERONEOCYSTOSTOMY ANASTOMOSIS OF SINGLE URETER TO BLADDER performed by Que Amaro MD at [facility] OR ??? PRO TOTAL KNEE ARTHROPLASTY Right 11/25/2017 TOTAL KNEE ARTHROPLASTY (WRVU 20.72) performed by Breezy Dale MD at [facility] OR ??? PRO TRANSPLANT, PREP CADAVER RENAL GRAFT N/A 09/16/2015 @PREPARATION CADAVERIC RENAL ALLOGRAFT performed by Franko Larkin MD at [facility] OR ??? PRO TRANSPLANTATION OF KIDNEY N/A 09/16/2015 @KIDNEY TRANSPLANT, WITHOUT RECIPIENT NEPHRECTOMY performed by Franko Larkin MD at [facility] OR ??? TISSUE TRANSFER kidney ??? US RENAL TRANSPLANT LEFT Left 01/31/2019 US Renal Transplant Left 01/31/2019 [facility] ULTR[facility]OUND ??? US RENAL TRANSPLANT LEFT Left 02/07/2019 US Renal Transplant Left 02/07/2019 [facility] Medications: Current Outpatient Medications [...] assessed Labs EKG CXR: - sent to [facility] Imaging: Assessment and Plan: At the conclusion of our visit I discussed the risks and benefits of proceeding with MIS Left L45 Decompression (originally scheduled at [facility] with Dr. Maddox but defered by anesthesia). [...] Chair Section of Neurosurgery Department of Surgery [facility] documented in this encounter Plan of Treatment Upcoming Encounters Date Type Department Care Team (Late st Contact Info) Description 06/22/2024 11:00 AM EST TH Visit (TeleHealth) Cardiology at [address] [phone] Byron Brown MD [facility] [place] [address] 07/14/2024 10:00 AM EST Hospital Encounter Non[place] [address] Arrived documented as of this [...] present documented in this encounter Care Teams Rn Call Center Relationship Specialty Start Date End Date Urbano Denis DO [address] [place] [address] PCP - General 09/03/12 03/17/22 Ruchi Valles RN Nurse Clinic Transplant Surgery 07/30/15 documented as of this encounter
--- OUTSIDE RECORDS SUMMARY | 2024-05-16 17:22 | XMS_ITS | Encounter Summary ---
Author Organization Replaced By [facility] [place] [address] Care Team Providers Care Aluminum Sheet Cutter Name Role Phone Urbano Denis DO Primary Care Provider Encounter Details Date Type Department Care Team (Late st Contact Info) Description 02/15/2020 Telephone Cardiology at [address] [phone] Anel Proctor RN Social History Tobacco Use [...] exam if Cardiac clearance is being requested. [facility] now allowing patient to be accompanied by [...] 11:00 AM EST Visit (TeleHealth) Cardiology at [address] [phone] Byron Brown MD [facility] [place] [address] 07/14/2024 10:00 AM EST Hospital Encounter Non-[place] [phone] Arrived documented as of this encounter Goals [...] on filedocumented in this encounter Care Teams Aluminum Sheet Cutter Relationship Specialty Start Date End Date Urbano Denis DO [address] [place] [address] [address] [facility] [address] [place] [address] PCP - General 09/03/12 03/17/22 Ruchi Valles RN Nurse Clinic Transplant Surgery 07/30/15 documented as of this encounter
--- OUTSIDE RECORDS SUMMARY | 2024-05-16 17:22 | XMS_ITS | Encounter Summary ---
Author Organization [facility] [place] [address] Care Team Providers Care Gemologist Name Role Phone AdeelUrbano boland Primary Care Provider [phone] Reason for Visit * Reason Onset Date Comments Medication Refill 07/12/2019 Encounter Details Date Type Department Care Team (Late st Contact Info) Description 07/12/2019 Refill [place] [address] Viviana Coon, WILLIAM Social History Tobacco Use [...] 11:00 AM EST Visit (TeleHealth) Cardiology at [address] [phone] Byron Brown MD [facility] [place] [address] 07/14/2024 10:00 AM EST Hospital Encounter Non[place] [address] Arrived documented as of this encounter Goals [...] on filedocumented in this encounter Care Teams Gemologist Relationship Specialty Start Date End Date Urbano Denis DO [address] [place] [address] PCP - General 09/03/12 03/17/22 Ruchi Valles RN Nurse Clinic Transplant Surgery 07/30/15 documented as of this encounter
--- OUTSIDE RECORDS SUMMARY | 2024-05-16 17:22 | XMS_ITS | Encounter Summary ---
[place] [address] Care Team Providers Care Surgical Scrub Technologist Name Role Phone Urbano Denis DO Primary Care Provider Encounter Details Date Type Department Care Team (Late st Contact Info) Description 04/11/2020 2:00 PM EDT Clinical [place] [phone] Social History Tobacco Use Types Packs/Day Years [...] AM EST Visit (TeleHealth) Cardiology at [address] [phone] Byron Brown MD [facility] [place] [address] 07/14/2024 10:00 AM [facility] Hospital Encounter Non-Invasive [place] [phone] Arrived documented as of this encounter Goals Goal Patient Goal Type Associated Problems Recent Progress Patient-Stated? Author [facility] Medication Compliance and Understanding Patient Facing Action Plan On track( 017 10:41 AM EDT) No Selena Cisneros, [facility] Note: Patient Goal: Clear hepatitis C Timeframe to meet goal: within 12 weeks of therapy documented as of this encounter Visit Diagnoses Not on filedocumented in this encounter Care Teams Surgical Scrub Technologist Relationship Specialty Start Date End Date Urbano Denis DO [address] [place] [address] [address] [place] [address] PCP - General 09/03/12 03/17/22 Ruchi Valles RN Nurse Clinic Transplant Surgery 07/30/15 documented as of this encounter
--- OUTSIDE RECORDS SUMMARY | 2024-05-16 17:22 | XMS_ITS | Encounter Summary ---
Author Organization [facility] [place] [address] Care Team Providers Care Route Service Manager Name Role Phone AdeelUrbano Primary Care Provider Encounter Details Date Type Department Care Team (Late st Contact Info) Description 04/19/2020 [place] [phone] Layla Pond RN Social History Tobacco Use [...] - 04/19/2020 4:16 PM EDT Cody Bolden [phone] Caller: Mara () Reason for call: [...] AM EST TH Visit (TeleHealth) Cardiology at [address] [phone] Byron Brown MD [facility] [place] [address] 07/14/2024 10:00 AM EST Hospital Encounter Non-[place] [address] Arrived documented as of this encounter Goals Goal Patient Goal Type Associated Problems Recent Progress Patient-Stated? Author [facility] Medication Compliance and Understanding Patient Facing Action Plan On track( 017 10:41 AM EDT) Selena Scott, [facility] Note: Patient Goal: Clear hepatitis C Timeframe to meet goal: within 12 weeks of therapy documented as of this encounter Visit Diagnoses Not on filedocumented in this encounter Care Teams Route Service Manager Relationship Specialty Start Date End Date Urbano Denis DO [address] [place] [address] [address] [facility] [address] [place] [address] PCP - General 09/03/12 03/17/22 Ruchi Valles RN Nurse Clinic Transplant Surgery 07/30/15 documented as of this encounter
--- OUTSIDE RECORDS SUMMARY | 2024-05-16 17:22 | XMS_ITS | Encounter Summary ---
Author Organization [facility] [place] [address] Care Team Providers Care Certified Solid Waste Facility Operator Name Role Phone Urbano Denis DO Primary Care Provider Encounter Details Date Type Department Care Team (Late st Contact Info) Description 03/28/2020 Telephone [place] [phone] Sonia Alcantar Social History Tobacco Use Types [...] ??1:22 PM To: Joseph Ang MD; [facility] Auto Emissions Technician; Viviana Gardner ?? Follow-up and Dispositions Check-out Note: 1) clinic appt w/ TCR to discuss surgery 2) needs same day H&P and PAT with Anesthesia consult 3) same day lumbar XR (ordered) documented in this encounter Plan of Treatment Upcoming Encounters Date Type Department Care Team (Late st Contact Info) Description 06/22/2024 11:00 AM EST TH Visit (TeleHealth) Cardiology at [address] [phone] Byron Brown MD [facility] [place] [address] 07/14/2024 10:00 AM EST Hospital Encounter Non-[place] [address] Arrived documented as of this [...] filedocumented in this encounter Care Teams Certified Solid Waste Facility Operator Relationship Specialty Start Date End Date Urbano Denis DO [address] [place] [address] PCP - General 09/03/12 03/17/22 Ruchi Valles RN Nurse Clinic Transplant Surgery 07/30/15 documented as of this encounter
--- OUTSIDE RECORDS SUMMARY | 2024-05-16 17:22 | XMS_ITS | Encounter Summary ---
Author Organization [facility] Address [facility] [place] [address] Care Team Providers Care Dairy Farm Manager Name Role Phone Urbano Denis DO Primary Care Provider + [phone] Reason for Visit * Physical Therapy (Routine) - Specialty Diagnoses / Procedures Referred By Humberto flor Referred To Contact Diagnoses Left leg pain Jay Chakraborty, IVETH [facility] [place] [address] Referral ID Status Reason Start Date Expiration Date V isits Requested Visits Authorized [id number] Evaluate and Treat 05/30/2019 11/26/2019 12 12 Encounter Details Date Type Department Care Team (Latest Contact Info) Description 09/12/2019 11:00 AM EDT Office [place] [address] Tal Eagle MD [facility] [place] [address] H/O kidney transplant; Aftercare following organ transplant; [...] MD at [facility] OR ??? US RENAL TRANSPLANT LEFT Left 01/31/2019 US Renal Transplant Left 01/31/2019 [facility] RAD ULTRASOUND ??? US RENAL TRANSPLANT LEFT Left 02/07/2019 US Renal Transplant Left 02/07/2019 [facility] ULTR[facility] Current Outpatient Medications: ??? glipiZIDE [...] for diabetics, every 5 for non diabetics [place] kidney ultrasound looking for renal cell CA, [...] from 09/12/2019 in Solid Organ Transplant at [facility] Weight 102.1 kg (225 lb) Heart Rate [...] UA Latest Ref Range: Clear Clear Spec [place] UA Latest Ref Range: 1.002 - 1.030 [...] - Magnesium??gluconate??to 1000mg BID; increased today to [phone] TID - He can take liquid antacid [...] disease, AF/Afib Followed by Dr. Brown ? [id number] labs f/u in September 2020 ?? ? Discussion with the patient and/or family concerned the following: ?Diagnostic results or recommended studies ?Prognosis; ?Risks and benefits of management; ?Instructions for management; ?Compliance with treatment; ?Risk factor reduction; ?Patient and family education. ? Total time?25 of 30 min??in direct face to face res counselor. documented in this encounter Plan of Treatment Upcoming Encounters Date Type Department Care Team (Late st Contact Info) Description 06/22/2024 11:00 AM EST Visit (TeleHealth) Cardiology at [address] [phone] Byron Brown MD [facility] [place] [address] 07/14/2024 10:00 AM EST Hospital Encounter Non-[place] [phone] Arrived documented as of this encounter Goals [...] immunotherapy documented in this encounter Care Teams Dairy Farm Manager Relationship Specialty Start Date End Date Urbano Denis DO [address] [place] [address] PCP - General 09/03/12 03/17/22 Ruchi Valles RN Nurse Clinic Transplant Surgery 07/30/15 documented as of this encounter
--- OUTSIDE RECORDS SUMMARY | 2024-05-16 17:22 | XMS_ITS | Encounter Summary ---
Author Organization [facility] [place] [place] [address] Care Team Providers Care Chaperone Name Role Phone AdeelUrbano boland Primary Care Provider [phone] Encounter Details Date Type Department Care Team (Late st Contact Info) Description 12/21/2019 External Results [place] [phone] Tal Eagle MD [facility] [place] [address] Social History Tobacco Use Types Packs/Day Years [...] 11:00 AM EST Visit (TeleHealth) Cardiology at [address] [phone] Byron Brown MD [facility] [place] [address] 07/14/2024 10:00 AM EST Hospital Encounter Non-Invasive [place] [address] Arrived documented as of this encounter Goals [...] on filedocumented in this encounter Care Teams Chaperone Relationship Specialty Start Date End Date Urbano Denis DO [address] [place] [address] [address] [place] [address] PCP - General 09/03/12 03/17/22 Ruchi Valles RN Nurse Clinic Transplant Surgery 07/30/15 documented as of this encounter
--- OUTSIDE RECORDS SUMMARY | 2024-05-16 17:22 | XMS_ITS | Encounter Summary ---
Author Organization [facility] Address [facility] [place] [address] Care Team Providers Care Coffee Farmer Name Role Phone AdeelUrbano toscano Primary Care Provider [phone] Reason for Visit * Reason Onset Date Comments Medication Refill 08/30/2019 Encounter Details Date Type Department Care Team (Late st Contact Info) Description 08/30/2019 Refill [place] [phone] Tal Eagle MD [facility] [place] [address] Social History Tobacco Use Types Packs/Day Years [...] EST TH Visit (TeleHealth) Cardiology at [address] [phone] Byron Brown MD [facility] [place] [address] 07/14/2024 10:00 AM [facility] Hospital Encounter Non-[place] [address] Arrived documented as of this [...] on filedocumented in this encounter Care Teams Coffee Farmer Relationship Specialty Start Date End Date Urbano Denis DO [address] [place] [address] PCP - General 09/03/12 03/17/22 Ruchi Valles RN Nurse Clinic Transplant Surgery 07/30/15 documented as of this encounter
--- OUTSIDE RECORDS SUMMARY | 2024-05-16 17:22 | XMS_ITS | Encounter Summary ---
Author Organization [facility] [place] [address] Care Team Providers Care Senior Portfolio Analyst Name Role Phone Urbano Denis DO Primary Care Provider + [phone] Reason for Visit * Physical Therapy (Routine) - Specialty Diagnoses / Procedures Referred By Humberto flor Referred To Contact Diagnoses Left leg pain Jay Chakraborty, RETAIL TRAINING MANAGER [facility] [place] [address] Referral ID Status Reason Start Date Expiration Date V isits Requested Visits Authorized [id number] Evaluate and Treat 05/30/2019 11/26/2019 12 12 Encounter Details Date Type Department Care Team (Latest Contact Info) Description 09/12/2019 10:00 AM EDT Laboratory Appointment Lab [address] [place] [id number] H/O kidney transplant; BK viremia Social History [...] AM EST TH Visit (TeleHealth) Cardiology at [address] [place] [phone] Byron Brown MD [facility] [place] [address] 07/14/2024 10:00 AM EST Hospital Encounter Non-Invasive Cardiology Lab [facility] [place] [address] Arrived documented as of this [...] RBC, Urine 4(H) 0 - 3 /HPF [facility] WBC, Urine 0 0 - 3 /HPF [facility] Squamous Epithelial Cells Raw Data, Urine 1 <=4 /HPF [facility] Urine specimen (specimen) 09/12/2019 10:23 AM EDT 09/12/2019 10:31 AM EDT Narrative Resulting Agency Comment Spec In Lab Tal Eagle MD URINE ORDERABLES Performing Organization Address City/State/[facility] Co de Phone Number [facility] [place] [address] * BKV Quant Urine (09/12/2019 10:23 AM EDT) BKV Urine Result Not Detected [facility] BKV Urine Interp BK Virus Urine Result Interpretation Result: BK Virus not detected Specimen type: urine Assay Range: 2.80-7.80 log copies/mL (6.28x10^2 - 6.28x10^7 copies/mL) Methods: Quantitative real-time polymerase chain reaction (PCR) of viral DNA isolated from plasma was performed using [employer] BKV analyte-specific reagents and the [employer] System that automates both nucleic acid isolation [...] its performance characteristics determined by the Clinical [employer] (CG[facility]) Laboratory at [facility]. It has not been cleared or approved by the FDA. The laboratory is regulated under CLIA as qualified to perform high-complexity testing. This test is used for clinical purposes. It should not be regarded as investigational or for research. [facility] Comment: [VERIFIED DATE]09.17.19 Verified By:Tal Cleaning (Electronic Signature) Urine specimen (specimen) 09/12/2019 10:23 AM EDT 09/12/2019 11:59 AM EDT Narrative Resulting Agency Comment Spec In Lab Tal Eagle MD MOLECULAR ORDERAB LES Performing Organization Address City/[facility]/ZIP Co de Phone Number [facility] [place] [address] * (ABNORMAL) Protein/Creatinine Ratio, urine (09/12/2019 10:23 AM EDT) Creatinine, Urine 107 mg/dL [facility] Protein, Urine 67(H) 0 - 12 mg/dL [facility] Protein / Creatinine Ratio, Urine 0.6 ratio [facility] Urine specimen (specimen) 09/12/2019 10:23 AM EDT 09/12/2019 10:32 AM EDT Narrative Resulting Agency Comment Spec In Lab Tal Eagle MD URINE ORDERABLES Performing Organization Address City/[facility]/ZIP Co de Phone Number [facility] [place] [address] * (ABNORMAL) Urinalysis with reflex Culture (09/12/2019 [...] LABORATORY Leukocytes, Urine Dipstick Negative Negative [facility] Appearance, Urine Dipstick Clear Clear [facility] Specific [place] Urine Automated 1.022 1.002 - 1.030 [facility] Color, Urine Dipstick Yellow Yellow [facility] Reflex to Culture No [facility] Urine specimen (specimen) 09/12/2019 10:23 AM EDT 09/12/2019 10:31 AM EDT Narrative Resulting Agency Comment Spec In Lab Tal Eagle MD URINE ORDERABLES Performing Organization Address [facility] Co de Phone Number [facility] [place] [address] * Creatinine, urine, random (09/12/2019 10:23 AM EDT) Creatinine, Urine 107 mg/dL [facility] Urine specimen (specimen) 09/12/2019 10:23 AM EDT 09/12/2019 10:32 AM EDT Narrative Resulting Agency Comment Spec In Lab Tal Eagle MD URINE ORDERABLES Performing Organization Address [facility] Co de Phone Number [facility] [place] [address] * [facility] Sendout (09/12/2019 10:10 AM EDT) [facility] Sendout See Note [facility] Comment: The ordered test is: BKV Antibody Titer Test performed by: [facility], [address] [place] [address] See Scanned Report. Blood specimen (specimen) Venous Draw / Unknown 09/12/2019 10:10 AM EDT 09/12/2019 1:39 PM EDT Tal Eagle MD LAB SEND OUT ROCHELLE JENNINGS [facility] [place] [address] * Differential, Automated (09/12/2019 10:10 AM EDT) [facility] Neutrophil % 68.3 % [facility] Neutrophil Absolute 5.15 1.70 - 6.10 x10(3)/[facility] Lymph % 19.6 % [facility] Lymphocytes Abs 1.5 0.9 - 3.2 x10(3)/[facility] Monocyte % 7.6 % [facility] Monocyte Abs 0.6 0.3 - 0.9 x10(3)/[facility] Eos % 3.3 % [facility] Eosinophils Abs 0.2 0.0 - 0.4 x10(3)/[facility] Basophil % 0.8 % [facility] Baso Absolute 0.1 0.0 - 0.1 x10(3)/[facility] Immature Gran % 0.40 % [facility] Comment: Immature granulocytes(IG's)percentage and absolute count will include metamyelocytes, myelocytes, and promyelocytes. Blood smears from CBCs yielding IG's will be scanned manually for concordance. If this scan disagrees with the automated IG or if promyelocytes are noted, a manual differential will be performed. Immature Gran Absolute 0.03 0.00 - 0.04 x10(3)/[facility] Blood specimen (specimen) 09/12/2019 10:10 AM EDT 09/12/2019 10:22 AM EDT Narrative Resulting Agency Comment Spec In Lab Tal Eagle MD HEMATOLOGY ORDERA BLES [facility] [place] [address] * Hemogram (09/12/2019 10:10 AM EDT) White Blood Cell 7.5 4.0 - 9.5 x10(3)/[facility] Red Blood Cell 4.99 4.58 - 5.54 x10(6)/[facility] Hemoglobin 15.3 13.7 - 16.5 gm/dL [facility] Hematocrit 45.3 40.5 - 48.5 % [facility] Mean Cell Volume 90.8 82.9 - 93.1 fL [facility] Mean Cell Hemoglobin 30.7 27.5 - 32.1 pg [facility] Mean Cell Hemoglobin Concentration 33.8 32.0 - 35.7 gm/dL [facility] Platelet 261 145 - 357 x10(3)/[facility] RDW Standard Deviation 43.4 36.0 - 45.0 [facility] RDW coefficient of variation 13.2 11.4 - 13.8 % [facility] Mean Platelet Volume 9.7 7.6 - 12.9 [facility] NRBC% auto 0.0 % [facility] NRBC Absolute 0.000 0.000 - 0.000 x10(3)/[facility] Blood specimen (specimen) 09/12/2019 10:10 AM EDT 09/12/2019 10:22 AM EDT Narrative Resulting Agency Comment Spec In Lab Tal Eagle MD HEMATOLOGY ORDERA BLES Performing Organization Address [facility]/ZIP Co de Phone Number [facility] [place] [address] * Miscellaneous Lab request (09/12/2019 10:10 AM EDT) Label Request received in lab. [facility] Blood specimen (specimen) 09/12/2019 10:10 AM EDT 09/12/2019 10:23 AM EDT Narrative Resulting Agency Comment Spec In Lab Tal Eagle MD LAB SEND OUT ORDE RABLES Performing Organization Address [facility] Co de Phone Number [facility] [place] [address] * (ABNORMAL) Magnesium (09/12/2019 10:10 AM EDT) Magnesium 0.68(L) 0.69 - 1.07 mmol/L [facility] Blood specimen (specimen) 09/12/2019 10:10 AM EDT 09/12/2019 10:22 AM EDT Narrative Resulting Agency Comment Spec In Lab Tal Eagle MD CHEMISTRY ORDERAB LES Performing Organization Address [facility] Co de Phone Number [facility] [place] [address] * Phosphorus (09/12/2019 10:10 AM EDT) Phosphorus 2.5 2.5 - 4.5 mg/dL [facility] Blood specimen (specimen) 09/12/2019 10:10 AM EDT 09/12/2019 10:22 AM EDT Narrative Resulting Agency Comment Spec In Lab Tal Eagle MD CHEMISTRY ORDERAB LES Performing Organization Address City/[facility]/ZIP Co de Phone Number [facility] [place] [address] * PTH (09/12/2019 10:10 AM EDT) Parathyroid Hormone 51 15 - 65 pg/mL [facility] Blood specimen (specimen) 09/12/2019 10:10 AM EDT 09/12/2019 10:22 AM EDT Narrative Resulting Agency Comment Spec In Lab Tal Eagle MD CHEMISTRY ORDERAB LES Performing Organization Address [facility] Co de Phone Number [facility] [place] [address] * Reticulocyte Count (09/12/2019 10:10 AM EDT) Reticulocyte % 2.1 0.7 - 2.6 % [facility] Retic Abs # 0.100 0.030 - 0.120 x10(6)/mcL [facility] Immature Retic% 11.9 0.0 - 15.6 % [facility] Reticulated Hgb 35.8 31.3 - 40.2 pg [facility] Blood specimen (specimen) 09/12/2019 10:10 AM EDT 09/12/2019 10:22 AM EDT Narrative Resulting Agency Comment Spec In Lab Tal Eagle MD HEMATOLOGY ORDERA BLES Performing Organization Address [facility] de Phone Number [facility] [place] [address] * Tacrolimus level (09/12/2019 10:10 AM EDT) Tacrolimus 5.4 ng/mL [facility] Comment: Trough therapeutic: ??5-15 ng/mL Performed by ultra-performance liquid chromatography tandem mass spectrometry (UPLCMS/MS). This test was developed and its performance characteristics determined by [facility]. It has not been cleared or [...] MD CHEMISTRY ORDERAB LES Performing Organization Address [facility] Co de Phone Number [facility] [place] [address] * Uric acid (09/12/2019 10:10 AM EDT) Uric Acid 6.7 3.5 - 8.5 mg/dL [facility] Blood specimen (specimen) 09/12/2019 10:10 AM EDT 09/12/2019 10:22 AM EDT Narrative Resulting Agency Comment Spec In Lab Tal Eagle MD CHEMISTRY ORDERAB LES Performing Organization Address [facility] Co de Phone Number [facility] [place] [address] * Vitamin B12 (09/12/2019 10:10 AM EDT) Vitamin B12 416 232 - 1,245 pg/mL [facility] Blood specimen (specimen) 09/12/2019 10:10 AM EDT 09/12/2019 10:22 AM EDT Narrative Resulting Agency Comment Spec In Lab Tal Eagle MD CHEMISTRY ORDERAB LES Performing Organization Address [facility] Co de Phone Number [facility] [place] [address] * 1,25-dihydroxycholecalciferol (09/12/2019 10:10 AM EDT) Vit D 1,25 Dihydroxy (NOVEMBER) 46 18 - 64 pg/mL [facility] Comment: ADDITIONAL INFORMATION This test was developed and its performance characteristics determined by [facility] in a manner consistent with CLIA requirements. This test has not been cleared or approved by the U.S. Food and Drug Administration. Test Performed by: [facility] - [facility] [address] [place] [address] Seamer: Edinson Garcia M.D. Ph.D.; CLIA# [id number] Blood specimen (specimen) 09/12/2019 10:10 AM EDT 09/12/2019 4:17 PM EDT Narrative Resulting Agency Comment Spec In Lab Tal Eagle MD LAB SEND OUT ROCHELLE JENNINGS Performing Organization Address [facility] Co de Phone Number [facility] [place] [address] * (ABNORMAL) Vitamin D, 25-Hydroxy (09/12/2019 10:10 AM EDT) Pathologist [facility] Vitamin D Total 25 OH 17(L) 30 - 100 ng/mL [facility] Comment: As of 2019, 25-hydroxyvitamin D testing has moved from the [id number] to the [employer]. No substantial change in measured values is expected. Blood specimen (specimen) 09/12/2019 10:10 AM EDT 09/12/2019 10:22 AM EDT Narrative Resulting Agency Comment Spec In Lab Tal Eagle MD CHEMISTRY ORDERAB LES Performing Organization Address [facility] Co de Phone Number [facility] [place] [address] * Lipid Panel (Reflex Direct LDL) (09/12/2019 10:10 AM EDT) Cholesterol, Total 84 mg/dL [facility] Comment: Lower Risk: <200 mg/dL Average Risk: 200-239 mg/dL Higher Risk: >ba=003 mg/dL Triglyceride 104 mg/dL [facility] Comment: Average Risk/Lower Risk: <150 mg/dL Borderline High Risk: 150-199 mg/dL High Risk: 200-499 mg/dL Very High Risk: >zm=701 mg/dL HDL Cholesterol 40 mg/dL [facility] Comment: Males: ?? Higher Risk: <40 mg/dL Females: ?? HIgher Risk: <50 mg/dL LDL Cholesterol 23 mg/dL [facility] Comment: Lowest Risk: <100 mg/dL Lower Risk: 100-129 mg/dL Borderline High Risk: 130-159 mg/dL High Risk: 160-189 mg/dL Very High Risk: >ly=974 mg/dL Cholesterol/HDL Ratio 2.1 ratio [facility] Lipid Interpretation See Note [facility] Comment: Lipid management should be guided by a patient? s ASCVD risk, goals and preferences. ACC/AHA Guidelines recommend high intensity statin if clinical ASCVD or LDL greater than or equal to 190 mg/dL. http://[employer]/JKW-RXX-Mostaubkw Adults aged 40-75 with LDL 70-189 mg/dL should have their 10 year ASCVD risk estimated with the ACC/AHA ASCVD risk senior cost estimator http://tools.acc.org/KPWER-Yyno-Reiqwuyzc/ Statin should be discussed if risk greater [...] MD CHEMISTRY ORDERAB LES [facility] [place] [address] * (ABNORMAL) Lipase (09/12/2019 10:10 AM EDT) Lipase 71(H) 0 - 60 unit/L [facility] Blood specimen (specimen) 09/12/2019 10:10 AM EDT 09/12/2019 10:22 AM EDT Narrative Resulting Agency Comment Spec In Lab Tal Eagle MD CHEMISTRY ORDERAB LES Performing Organization Address [facility]/ZIP Co de Phone Number [facility] [place] [address] * Lavender Tube HOLD (09/12/2019 10:10 AM EDT) Pathologist [facility] Lavender Hold Sample in lab. [facility] Blood specimen (specimen) 09/12/2019 10:10 AM EDT 09/12/2019 10:22 AM EDT Tal Eagle MD HEMATOLOGY ORDERA BLES Performing Organization Address [facility] de Phone Number [facility] [place] [address] * Iron and TIBC (09/12/2019 10:10 AM EDT) Pathologist [facility] Iron 82 45 - 160 mcg/dL [facility] TIBC 269 250 - 450 mcg/dL [facility] Iron Saturation 30 20 - 50 % [facility] Blood specimen (specimen) 09/12/2019 10:10 AM EDT 09/12/2019 10:22 AM EDT Narrative Resulting Agency Comment Spec In Lab Tal Eagle MD CHEMISTRY ORDERAB LES Performing Organization Address [facility] Co de Phone Number [facility] [place] [address] * (ABNORMAL) Hemoglobin A1c (09/12/2019 10:10 AM EDT) Hemoglobin A1c 7.1(H) 4.3 - 5.6 % [facility] Comment: Reference Range: 4.3 - [...] Mellitus, Diabetes Care 2013; 36: Suppl. 1, N87-65 Estimated Average Glucose See note mg/dL [facility] Comment: Estimated Average Glucose not [...] into estimated average glucose values. ??Diabetes Care 2008:31(8):3760-8629. Blood specimen (specimen) 09/12/2019 10:10 AM EDT 09/12/2019 10:23 AM EDT Narrative Resulting Agency Comment Spec In Lab Tal Eagle MD CHEMISTRY ORDERAB LES [facility] [place] [address] * Gold Tube HOLD (09/12/2019 10:10 AM EDT) [facility] Gold Hold Sample in lab. [facility] Blood specimen (specimen) 09/12/2019 10:10 AM EDT 09/12/2019 10:22 AM EDT Tal Eagle MD CHEMISTRY ORDERAB LES [facility] [place] [address] * Folate, serum (09/12/2019 10:10 AM EDT) [facility] Folate 9.3 4.8 - 24.2 ng/mL [facility] Blood specimen (specimen) 09/12/2019 10:10 AM EDT 09/12/2019 10:22 AM EDT Narrative Resulting Agency Comment Spec In Lab Tal Eagle MD CHEMISTRY ORDERAB LES Performing Organization Address [facility]/ZIP Co de Phone Number [facility] [place] [address] * Ferritin (09/12/2019 10:10 AM EDT) [facility] Ferritin 246 30 - 400 ng/mL [facility] Comment: Pediatric reference ranges not verified at [facility], interpret with caution. Reference ranges for females greater than 50 years of age approach values for men, i.e., 30-400 ng/mL. Blood specimen (specimen) 09/12/2019 10:10 AM EDT 09/12/2019 10:22 AM EDT Narrative Resulting Agency Comment Spec In Lab Tal Eagle MD CHEMISTRY ORDERAB LES Performing Organization Address City/[facility]/ZIP Co de Phone Number [facility] [place] [address] * (ABNORMAL) CMP w/fasting Glucose (09/12/2019 10:10 AM EDT) [facility] Glucose Fasting 153(H) 65 - 99 mg/dL [facility] Comment: ?Fasting* Glucose Interpretive Criteria [...] of Diabetes Mellitus, Position Statement from the [place] [employer]. ??Diabetes Care, Volume 33, Supplement 1, Jul 2009 Blood Urea Nitrogen 16 10 - 20 mg/dL [facility] Creatinine 1.43 0.80 - 1.50 mg/dL [facility] [...] 107 mmol/L [facility] Carbon Dioxide 28 22 - 31 mmol/L [facility] Anion Gap 11 5 - 15 mmol/L [facility] Calcium 9.7 8.5 - 10.5 mg/dL [facility] Protein, Total 7.1 6.1 - 8.0 gm/dL [facility] Albumin 4.1 3.2 - 5.2 gm/dL [facility] Aspartate Aminotransferase 18 0 - 39 unit/L [facility] Alanine Aminotransferase 16 0 - 55 unit/L [facility] Alkaline Phosphatase 69 40 - 130 unit/L [facility] Bilirubin, Total 2.5(H) 0.2 - 1.3 mg/dL [facility] Est Glomerular Filtration Rate 49(L) >=60 mL/min/1. 73 m?? [facility] Comment: The eGFR was calculated using the CKD-EPI equation. As with all creatinine based estimates of kidney function, eGFR values calculated with the CKD-EPI equation are not accurate in patients with acute kidney failure, extremes of body mass or the acutely ill. http://[employer]/[facility]kf eGFR 57(L) >=60 mL/min/1. 73 m?? [facility] Comment: The eGFR was calculated using the CKD-EPI equation. As with all creatinine based estimates of kidney function, eGFR values calculated with the CKD-EPI equation are not accurate in patients with acute kidney failure, extremes of body mass or the acutely ill. http://[employer]/[facility]kf Blood specimen (specimen) 09/12/2019 10:10 AM EDT 09/12/2019 10:22 AM EDT Narrative Resulting Agency Comment Spec In Lab Tal Eagle MD CHEMISTRY ORDERAB LES Performing Organization Address [facility] Co de Phone Number [facility] [place] [address] * Amylase (09/12/2019 10:10 AM EDT) Amylase 46 28 - 100 unit/L [facility] Blood specimen (specimen) 09/12/2019 10:10 AM EDT 09/12/2019 10:22 AM EDT Narrative Resulting Agency Comment Spec In Lab Tal Eagle MD CHEMISTRY ORDERAB LES Performing Organization Address [facility] Co de Phone Number [facility] [place] [address] documented in this encounter Visit Diagnoses Diagnosis H/O kidney transplant Kidney replaced by transplant BK viremia Viremia, unspecified documented in this encounter Care Teams Senior Portfolio Analyst Relationship Specialty Start Date End Date Urbano Denis DO [address] [place] [address] PCP - General 09/03/12 03/17/22 Ruchi Valles RN Nurse Clinic Transplant Surgery 07/30/15 documented as of this encounter
--- OUTSIDE RECORDS SUMMARY | 2024-05-16 17:22 | XMS_ITS | Encounter Summary ---
Author Organization [facility] [place] [address] Care Team Providers Care Hotel Or Motel Room Service Supervisor Name Role Phone AdeelUrbano toscano Primary Care Provider Reason for Visit * Reason Comments Medication Refill Encounter Details Date Type Department Care Team (Late st Contact Info) Description 10/28/2019 Refill [place] [address] Tal Eagle MD [facility] [place] [address] Social History Tobacco Use Types Packs/Day Years [...] EST TH Visit (TeleHealth) Cardiology at [address] [address] Byron Brown MD [facility] [place] [address] 07/14/2024 10:00 AM [facility] Hospital Encounter Non-[place] [phone] Arrived documented as of this encounter Goals [...] filedocumented in this encounter Care Teams Hotel Or Motel Room Service Supervisor Relationship Specialty Start Date End Date Urbano Denis DO [address] [place] [address] [address] [facility] [address] [place] [address] PCP - General 09/03/12 03/17/22 Ruchi Valles RN Nurse Clinic Transplant Surgery 07/30/15 documented as of this encounter
--- OUTSIDE RECORDS SUMMARY | 2024-05-16 17:22 | XMS_ITS | Encounter Summary ---
Author Organization [facility] [place] [address] Care Team Providers Care Dimmer Board Operator Name Role Phone AdeelUrbano toscano Primary Care Provider Reason for Visit * Reason Comments Medication Refill Encounter Details Date Type Department Care Team (Late st Contact Info) Description 07/28/2019 Refill [place] [address] Tal Eagle MD [facility] [place] [address] Social History Tobacco Use Types Packs/Day Years [...] EST TH Visit (TeleHealth) Cardiology at [address] [phone] Byron Brown MD [facility] [place] [address] 07/14/2024 10:00 AM [facility] Hospital Encounter Non-Invasive [place] [phone] Arrived documented as of this encounter Goals [...] on filedocumented in this encounter Care Teams Dimmer Board Operator Relationship Specialty Start Date End Date Urbano Denis DO [address] [place] [address] [address] [facility] [place] [address] PCP - General 09/03/12 03/17/22 Ruchi Valles RN Nurse Clinic Transplant Surgery 07/30/15 documented as of this encounter
--- OUTSIDE RECORDS SUMMARY | 2024-05-16 17:22 | XMS_ITS | Encounter Summary ---
Author Organization [facility] [place] [address] Care Team Providers Care Menhaden Vessel Pilot Name Role Phone Urbano Denis DO Primary Care Provider Encounter Details Date Type Department Care Team (Late st Contact Info) Description 05/04/2020 [place] [phone] Erica Powers Social History Tobacco Use Types [...] ASK: TRAVEL ???Have you travelled outside of [place] ([place], [place], [place], [place], [place], [place]) in the past 14 days??? [...] Transfer patient to the Covid-19 Hotline Number ([phone]) for further instructions. If 'No' to all of the questions above Is this the first test for Covid 19 Yes If no, please list date of previous test, result, and type of test (Molecular, Antigen, Antibody orunknown): Resides in chcf, detention or other residential facility No Employee or [...] patient. Ordering provider: Dr Ang Testing Facility: [facility] Date of Testin/2 Time of Testin:00am Symptoms: no documented in this encounter Plan of Treatment Upcoming Encounters Date Type Department Care Team (Late st Contact Info) Description 06/22/2024 11:00 AM EST Visit (TeleHealth) Cardiology at [address] [phone] Byron Brown MD [facility] [place] [address] 07/14/2024 10:00 AM EST Hospital Encounter Non-Invasive [place] [address] Arrived documented as of this encounter Goals Goal Patient Goal Type Associated Problems Recent Progress Patient-Stated? Author [facility] Medication Compliance and Understanding Patient Facing Action Plan On track( 017 10:41 AM EDT) No Selena Cisneros [facility] Note: Patient Goal: Clear hepatitis C Timeframe to meet goal: within 12 weeks of therapy documented as of this encounter Visit Diagnoses Not on filedocumented in this encounter Care Teams Menhaden Vessel Pilot Relationship Specialty Start Date End Date Urbano Denis DO [address] [place] [address] PCP - General 09/03/12 03/17/22 Ruchi Valles RN Nurse Clinic Transplant Surgery 07/30/15 documented as of this encounter
--- OUTSIDE RECORDS SUMMARY | 2024-05-16 17:22 | XMS_ITS | Encounter Summary ---
Author Organization [facility] Address [facility] [place] [address] Care Team Providers Care Director Export Name Role Phone Urbano Denis DO Primary Care Provider Encounter Details Date Type Department Care Team (Latest Contact Info) Description 04/11/2020 10:45 AM EDT - 04/11/2020 11:59 PM EDT Hospital Encounter XRay at [address] [place] [address] Joseph Ang MD [facility] [place] [address] Spinal stenosis of lumbar region, unspecified whether [...] unspecified vessel or lesion type, unspecified whether [place] or transplanted heart Take 1 tablet by [...] EST TH Visit (TeleHealth) Cardiology at [address] [phone] Byron Brown MD [facility] [place] [address] 07/14/2024 10:00 AM EST Hospital Encounter Non-Invasive [place] [phone] Arrived documented as of this encounter Goals [...] ? Electronically signed by: Nadia Hernandez MD, [facility] ([phone]), at 04/11/2020 11:54 AM Narrative 04/11/2020 11:54 [...] below. Electronically signed by: Nadia Hernandez MD, [facility] ([phone]), at 04/11/2020 11:54 AM Joseph Ang MD [...] present documented in this encounter Care Teams Director Export Relationship Specialty Start Date End Date Urbano Denis DO [address] [place] [address] PCP - General 09/03/12 03/17/22 Ruchi Valles RN Nurse Clinic Transplant Surgery 07/30/15 documented as of this encounter
--- OUTSIDE RECORDS SUMMARY | 2024-05-16 17:22 | XMS_ITS | Encounter Summary ---
Author Organization [facility] [place] [address] Care Team Providers Care Textile Colorist Formulator Name Role Phone Urbano Denis DO Primary Care Provider Encounter Details Date Type Department Care Team (Latest Contact Info) Description 04/11/2020 2:00 PM EDT Laboratory [place]ointment [place] [address] Spinal stenosis of lumbar region, [...] EST TH Visit (TeleHealth) Cardiology at [address] [phone] Byron Brown MD [facility] [place] [address] 07/14/2024 10:00 AM EST Hospital Encounter Non-Invasive [place] [address] Arrived documented as of this [...] RBC, Urine 6(H) 0 - 3 /HPF [facility] WBC, Urine 1 0 - 3 /HPF [facility] Urine specimen obtained by clean catch procedure (specimen) 04/11/2020 2:50 PM EDT 04/11/2020 3:16 PM EDT Narrative Resulting Agency Comment Spec In Lab Joseph Ang MD URINE ORDERABLES [facility] [place] [address] * (ABNORMAL) Urinalysis with reflex Culture (04/11/2020 [...] Dipstick Clear Clear [facility] Specific [place] Urine Automated 1.019 1.006 - 1.030 [facility] Color, Urine Dipstick Yellow Yellow [facility] Reflex to Culture No [facility] Urine specimen obtained by clean catch procedure (specimen) 04/11/2020 2:50 PM EDT 04/11/2020 3:16 PM EDT Narrative Resulting Agency Comment Spec In Lab Joseph Ang MD URINE ORDERABLES Performing Organization Address City/[facility]/ZIP Co de Phone Number [facility] [place] [address] * Differential, Automated (04/11/2020 2:45 PM EDT) Neutrophil % 70.6 % [facility] Neutrophil Absolute 5.91 1.70 - 6.10 x10(3)/[facility] Lymph % 18.2 % [facility] Lymphocytes Abs 1.5 0.9 - 3.2 x10(3)/[facility] Monocyte % 6.5 % [facility] Monocyte Abs 0.5 0.3 - 0.9 x10(3)/[facility] Eos % 3.5 % [facility] Eosinophils Abs 0.3 0.0 - 0.4 x10(3)/[facility] Basophil % 0.7 % [facility] Baso Absolute 0.1 0.0 - 0.1 x10(3)/[facility] Immature Gran % 0.50 % [facility] Comment: Immature granulocytes(IG's)percentage and absolute count will include metamyelocytes, myelocytes, and promyelocytes. Blood smears from CBCs yielding IG's will be scanned manually for concordance. If this scan disagrees with the automated IG or if promyelocytes are noted, a manual differential will be performed. Immature Gran Absolute 0.04 0.00 - 0.04 x10(3)/[facility] Blood specimen (specimen) 04/11/2020 2:45 PM EDT 04/11/2020 3:18 PM EDT Narrative Resulting Agency Comment Spec In Lab Joseph Ang MD HEMATOLOGY ORDERABLE S [facility] [place] [address] * Hemogram (04/11/2020 2:45 PM EDT) [facility] White Blood Cell 8.4 4.0 - 9.5 x10(3)/[facility] Red Blood Cell 5.11 4.58 - 5.54 x10(6)/[facility] Hemoglobin 15.9 13.7 - 16.5 gm/dL [facility] Hematocrit 45.0 40.5 - 48.5 % [facility] Mean Cell Volume 88.1 82.9 - 93.1 fL [facility] Mean Cell Hemoglobin 31.1 27.5 - 32.1 pg [facility] Mean Cell Hemoglobin Concentration 35.3 32.0 - 35.7 gm/dL [facility] Platelet 280 145 - 357 x10(3)/[facility] RDW Standard Deviation 41.5 36.0 - 45.0 [facility] RDW coefficient of variation 12.8 11.4 - 13.8 % [facility] Mean Platelet Volume 9.8 7.6 - 12.9 [facility] NRBC% auto 0.0 % [facility] NRBC Absolute 0.000 0.000 - 0.000 x10(3)/[facility] Blood specimen (specimen) 04/11/2020 2:45 PM EDT 04/11/2020 3:18 PM EDT Narrative Resulting Agency Comment Spec In Lab Joseph Ang MD HEMATOLOGY ORDERABLE S Performing Organization Address City/[facility]/ZIP Co de Phone Number [facility] [place] [address] * (ABNORMAL) Electrolytes panel (04/11/2020 2:45 PM EDT) [facility] Sodium 138 135 - 145 mmol/L [facility] [...] Resulting Agency Comment Spec In Lab Joseph Agn MD CHEMISTRY ORDERABLES Performing Organization Address City/[facility]/ZIP Co de Phone Number [facility] [place] [address] * BUN (04/11/2020 2:45 PM EDT) Blood Urea Nitrogen 16 10 - 20 mg/dL [facility] Blood specimen (specimen) 04/11/2020 2:45 PM EDT 04/11/2020 3:18 PM EDT Narrative Resulting Agency Comment Spec In Lab Joseph Ang MD CHEMISTRY ORDERABLES Performing Organization Address [facility] Co de Phone Number [facility] [place] [address] * (ABNORMAL) Creatinine (04/11/2020 2:45 PM EDT) [...] of body mass or the acutely ill. http://tinyurl.com/DHnkf eGFR 69 >=60 mL/min/1.7 3 m?? [facility] Comment: The eGFR was calculated using the CKD-EPI equation. As with all creatinine based estimates of kidney function, eGFR values calculated with the CKD-EPI equation are not accurate in patients with acute kidney failure, extremes of body mass or the acutely ill. http://[employer]/[facility]nk[facility] Blood specimen (specimen) 04/11/2020 2:45 PM EDT 04/11/2020 3:18 PM EDT Narrative Resulting Agency Comment Spec In Lab Joseph Ang MD CHEMISTRY ORDERABLES Performing Organization Address [facility] de Phone Number [facility] [place] [address] * (ABNORMAL) Prothrombin Time (04/11/2020 2:45 PM [...] MD HEMATOLOGY ORDERABLE S Performing Organization Address [facility] Co de Phone Number [facility] [place] [address] * APTT (04/11/2020 2:45 PM EDT) Partial [...] MD HEMATOLOGY ORDERABLE S Performing Organization Address City/State/[facility] Co de Phone Number [facility] [place] [address] documented in this encounter Visit Diagnoses Diagnosis Spinal stenosis of lumbar region, unspecified whether neurogenic claudication present documented in this encounter Care Teams Textile Colorist Formulator Relationship Specialty Start Date End Date Urbano Denis DO [address] [place] [address] PCP - General 09/03/12 03/17/22 Ruchi Valles RN Nurse Clinic Transplant Surgery 07/30/15 documented as of this encounter
--- OUTSIDE RECORDS SUMMARY | 2024-05-16 17:22 | XMS_ITS | Encounter Summary ---
Author Organization [facility] [place] [address] Care Team Providers Care Machine Shorthand Reporter Name Role Phone AdeelUrbano toscano Primary Care Provider + [phone] Reason for Visit * Reason Onset Date Comments Medication Refill Medication Refill 02/14/2020 Encounter Details Date Type Department Care Team (Late st Contact Info) Description 02/06/2020 [place] [phone] [place] [address] Atrial fibrillation with RVR - had flutter initially, then fib; Coronary artery disease, angina presence unspecified, unspecified vessel or lesion type, unspecified whether [place] or transplanted heart Social History Tobacco Use [...] EST TH Visit (TeleHealth) Cardiology at [address] [phone] Byron Brown MD [facility] [place] [address] 07/14/2024 10:00 AM EST Hospital Encounter Non-Invasive Cardiology Lab [facility] [place] [address] Arrived documented as of this encounter Goals [...] (Bezet) 435 ms MUSE SYSTEM Calculated P [place] 49 degrees MUSE SYSTEM Calculated R [place] -65 degrees MUSE SYSTEM Calculated T [place] -5 degrees MUSE SYSTEM INTERPRETATION Sinus bradycardia Left anterior fascicular block Left ventricular hypertrophy with QRS widening Abnormal ECG When compared with ECG of 31-MAR-2019 13:58, No significant change was found Confirmed by MD Phillip Daniel ([id number]) on 02/17/2020 5:16:28 PM MUSE SYSTEM 02/17/2020 2:13 PM EDT 02/17/2020 5:16 PM EDT Danny Hicks MD ECG ORDERABLES MUSE SYSTEM documented in this encounter Visit Diagnoses Diagnosis Atrial fibrillation with RVR - had flutter initially, then fib Atrial fibrillation Coronary artery disease, angina presence unspecified, unspecified vessel or lesion type, unspecified whether [place] or transplanted heart documented in this encounter Care Teams Machine Shorthand Reporter Relationship Specialty Start Date End Date Urbano Denis DO [address] [place] [address] [address] [place] [address] PCP - General 09/03/12 03/17/22 Hai STANLEY,Ruchi Nurse Clinic Transplant Surgery 07/30/15 documented as of this encounter
--- OUTSIDE RECORDS SUMMARY | 2024-05-16 17:22 | XMS_ITS | Encounter Summary ---
Author Organization [facility] [place] [address] Care Team Providers Care Overlay Operator Name Role Phone AdeelUrbano toscano Primary Care Provider Encounter Details Date Type Department Care Team (Late st Contact Info) Description 03/27/2020 Orders [place] [phone] Joseph Ang MD [facility] [place] [address] Spinal stenosis of lumbar region, unspecified whether [...] EST TH Visit (TeleHealth) Cardiology at [address] [phone] Byron Brown MD [facility] [place] [address] 07/14/2024 10:00 AM [facility] Hospital Encounter Non-Invasive [place] [address] Arrived documented as of this [...] HOSPITAL LABORATORY Leukocytes, Urine Dipstick Negative Negative [facility] Appearance, Urine Dipstick Clear Clear [facility] Specific [place] Urine Automated 1.019 1.006 - 1.030 [facility] Color, Urine Dipstick Yellow Yellow [facility] Reflex to Culture No [facility] Urine specimen obtained by clean catch procedure (specimen) 04/11/2020 2:50 PM EDT 04/11/2020 3:16 PM EDT Narrative Resulting Agency Comment Spec In Lab Joseph Ang MD URINE ORDERABLES Performing Organization Address [facility] Co de Phone Number [facility] [place] [address] * APTT (04/11/2020 2:45 PM EDT) Partial [...] MD HEMATOLOGY ORDERABLE S Performing Organization Address [facility] Co de Phone Number [facility] [place] [address] * (ABNORMAL) Prothrombin Time (04/11/2020 2:45 PM [...] Performing Organization Address City/[facility] Co de Phone Number [facility] [place] [address] * (ABNORMAL) Creatinine (04/11/2020 2:45 PM EDT) [...] of body mass or the acutely ill. http://[employer]/[facility] GUYMONnkf eGFR 69 >=60 mL/min/1.7 3 m?? [facility] Comment: The eGFR was calculated using the CKD-EPI equation. As with all creatinine based estimates of kidney function, eGFR values calculated with the CKD-EPI equation are not accurate in patients with acute kidney failure, extremes of body mass or the acutely ill. http://[employer]/[facility]YMONnkf Blood specimen (specimen) 04/11/2020 2:45 PM EDT 04/11/2020 3:18 PM EDT Narrative Resulting Agency Comment Spec In Lab Joseph Ang MD CHEMISTRY ORDERABLES Performing Organization Address [facility] Co de Phone Number [facility] [place] [address] * BUN (04/11/2020 2:45 PM EDT) Blood Urea Nitrogen 16 10 - 20 mg/dL [facility] Blood specimen (specimen) 04/11/2020 2:45 PM EDT 04/11/2020 3:18 PM EDT Narrative Resulting Agency Comment Spec In Lab Joseph Ang MD CHEMISTRY ORDERABLES Performing Organization Address [facility] Co de Phone Number [facility] [place] [address] * (ABNORMAL) Electrolytes panel (04/11/2020 2:45 PM [...] Ang MD CHEMISTRY ORDERABLES [facility] [place] [address] * XR Chest PA & Lateral (Generic) [...] Electronically signed by: Nadia Hernandez MD, [facility] ([phone]), at 04/11/2020 11:54 AM Narrative 04/11/2020 11:54 [...] below. Electronically signed by: Nadia Hernandez MD, [facility] ([phone]), at 04/11/2020 11:54 AM Joseph Ang MD [...] present documented in this encounter Care Teams Overlay Operator Relationship Specialty Start Date End Date Urbano Denis DO [address] [place] [address] PCP - General 09/03/12 03/17/22 Ruchi Valles RN Nurse Clinic Transplant Surgery 07/30/15 documented as of this encounter
--- OUTSIDE RECORDS SUMMARY | 2024-05-16 17:22 | XMS_ITS | Encounter Summary ---
[place] [address] Care Team Providers Care Meter Reading Clerk Name Role Phone Urbano Denis DO Primary Care Provider [phone] Encounter Details Date Type Department Care Team (Late st Contact Info) Description 07/08/2019 Telephone Cardiology at [address] [phone] Anel Proctor RN Social History Tobacco Use [...] for completion of the application form for [place] [employer]- Patient Assistance form for 2019. [...] other concerns at this time. Anel L. Hitesh RN, BSN Ambulatory Cardiology Department documented in this encounter Plan of Treatment Upcoming Encounters Date Type Department Care Team (Late st Contact Info) Description 06/22/2024 11:00 AM EST TH Visit (TeleHealth) Cardiology at [address] [phone] Byron Brown MD [facility] [place] [address] 07/14/2024 10:00 AM EST Hospital Encounter Non-Invasive [place] [address] Arrived documented as of this [...] on filedocumented in this encounter Care Teams Meter Reading Clerk Relationship Specialty Start Date End Date Urbano Denis DO [address] [place] [address] PCP - General 09/03/12 03/17/22 Ruchi Valles RN Nurse Clinic Transplant Surgery 07/30/15 documented as of this encounter
--- OUTSIDE RECORDS SUMMARY | 2024-05-16 17:22 | XMS_ITS | Encounter Summary ---
Author Organization [facility] Address [facility] [place] [address] Care Team Providers Care Gifts Officer Name Role Phone Adeel Urbano KIRBY Primary Care Provider + [phone] Reason for Visit * Consultation (Routine) - Specialty Diagnoses / Procedures Referred By Contac t Referred To Contact Neurosurgery Diagnoses Radiculopathy, lumbar region Lumbar radiculopathy Sona Bradford MD [address] [place] [id number] Jospeh Ang MD [facility] [place] [address] Referral ID Status Reason Start Date Expiration Date V isits Requested Visits Authorized [id number] Consult, Test & Treat Connection [facility] PCP Updated and/or Approved 03/20/2020 03/20/2021 6 6 Encounter Details Date Type Department Care Team (Latest Contact Info) Description 03/27/2020 11:00 AM EDT TH Visit (TeleHealth) [place] [address] Franko Torres PA [facility] [address] Spinal stenosis of lumbar region, unspecified whether [...] of this encounter Progress Notes * Franko Torres PA - 03/27/2020 11:00 AM EDT Images from the original note were not included. Section of Neurosurgery Initial Consultation Note - Telephone Office Visit 03/27/2020 Urbano Denis, DO [address] [place] [address] RE: Cody Bolden : [address] Denis: Thank you for referring your patient Cody Bolden to the Neurosurgery Clinic at [facility] for evaluation of lumbar spinal stenosis. As you know, Mr. Bolden is a pleasant 69 y.o. male who was set to undergo L4-[address] Bradford but referred to [facility] due anesthesiology concerns and complexity of care [...] Vitamin D deficiency ??? 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 exterminator termite current use of immunosuppressive drug ??? CAH [...] by Que Amaro MD at [facility] MAIN OR ??? PRO CYSTOURETHROSCOPY, URETER CATHETER Left 06/17/2018 CYSTO, RETROGRADE, URETEROPYELOGRAPHY (WRVU 2.37) performed by Edinson Grider III, MD at [facility]IS ??? PRO REIMPLANT URETER, SINGLE URETER Left 05/20/2016 @URETERONEOCYSTOSTOMY ANASTOMOSIS OF SINGLE URETER TO BLADDER performed by Santosh Arredondo MD at [facility] MAIN OR ??? PRO REIMPLANT URETER, SINGLE URETER N/A 05/20/2016 @URETERONEOCYSTOSTOMY ANASTOMOSIS OF SINGLE URETER TO BLADDER performed by Que Amaro MD at [facility] MAIN OR ??? PRO TOTAL KNEE ARTHROPLASTY Right 11/25/2017 TOTAL KNEE ARTHROPLASTY (WRVU 20.72) performed by Breezy Dale MD at [facility] MAIN OR ??? PRO TRANSPLANT, PREP CADAVER RENAL GRAFT N/A 09/16/2015 @PREPARATION CADAVERIC RENAL ALLOGRAFT performed by Franko Larkin MD at [facility] OR ??? PRO TRANSPLANTATION OF KIDNEY N/A 09/16/2015 @KIDNEY TRANSPLANT, WITHOUT RECIPIENT NEPHRECTOMY performed by Franko Larkin MD at [facility] OR ??? US RENAL TRANSPLANT LEFT Left 01/31/2019 US Renal Transplant Left 01/31/2019 [facility] RAD ULTRASOUND ??? US RENAL TRANSPLANT LEFT Left 02/07/2019 US Renal Transplant Left 02/07/2019 [facility] RAD ULTRASOUND SOCIAL HISTORY: Social History [...] decompression by Dr. Bradford but referred to [facility] given his medical comorbidities. He has had cardiac clearance for surgery and to come off his OAC, though continuing ASA without stopping for surgery was recommended to lower periop MA and stent thrombosis risk. I explainedthat we [...] minutes. Sincerely, Franko Torres PA-C, MS Physician Product Applications Engineer [facility] Department of Neurosurgery [address] [place] [id number] CC: Urbano Denis DO CC: Urbano eDnis DO [address] [place], [place] [address] [place] [id number] This message is confidential, intended only for [...] 11:00 AM EST Visit (TeleHealth) Cardiology at [address] [phone] Byron Brown MD [facility] [place] [address] 07/14/2024 10:00 AM EST Hospital Encounter Non-Invasive [place] [phone] Arrived documented as of this encounter Goals [...] present documented in this encounter Care Teams Gifts Officer Relationship Specialty Start Date End Date Urbano Denis DO [address] [place] [address] PCP - General 09/03/12 03/17/22 Ruchi Valles RN Nurse Clinic Transplant Surgery 07/30/15 documented as of this encounter
--- OUTSIDE RECORDS SUMMARY | 2024-05-16 17:22 | XMS_ITS | Encounter Summary ---
Author Organization [facility] [place] [address] Care Team Providers Care Paper Machine Operator Name Role Phone AdeelUrbano boland Primary Care Provider Reason for Visit * Reason Comments Medication Refill Encounter Details Date Type Department Care Team (Late st Contact Info) Description 04/18/2020 Ref[place] [address] Tal Eagle MD [facility] [place] [address] Social History Tobacco Use Types Packs/Day Years [...] EST TH Visit (TeleHealth) Cardiology at [address] [phone] Byron Brown MD [facility] [place] [address] 07/14/2024 10:00 AM [facility] Hospital Encounter Non-Invasive [place] [phone] Arrived documented as of this encounter Goals [...] filedocumented in this encounter Care Teams Paper Machine Operator Relationship Specialty Start Date End Date Urbano Denis DO [address] [place] [address] [address] [facility] 1 [place] [address] PCP - General 09/03/12 03/17/22 Ruchi Valles RN Nurse Clinic Transplant Surgery 07/30/15 documented as of this encounter
--- OUTSIDE RECORDS SUMMARY | 2024-05-16 17:23 | XMS_ITS | Encounter Summary ---
Author Organization [facility] [place] [address] Care Team Providers Care Forestry And Wildlife Manager Name Role Phone Adeel Urbano KIRBY Primary Care Provider + [phone] Reason for Visit * Reason Onset Date Comments Medication Refill 07/08/2019 Encounter Details Date Type Department Care Team (Late st Contact Info) Description 07/08/2019 Refill Cardiology at [address] [phone] Byron Brown MD [facility] [place] [address] Medication Refill Social History Tobacco Use Types [...] EST TH Visit (TeleHealth) Cardiology at [address] [phone] Byron Brown MD [facility] [place] [address] 07/14/2024 10:00 AM [facility] Hospital Encounter Non[place] [address] Arrived documented as of this [...] fibrillation documented in this encounter Care Teams Forestry And Wildlife Manager Relationship Specialty Start Date End Date Urbano Denis DO [address] [place] [address] PCP - General 09/03/12 03/17/22 Ruchi Valles RN Nurse Clinic Transplant Surgery 07/30/15 documented as of this encounter
--- OUTSIDE RECORDS SUMMARY | 2024-05-16 17:23 | XMS_ITS | Encounter Summary ---
Author Organization [facility] [place] [address] Care Team Providers Care Automatic Drilling Machine Operator Name Role Phone Urbano Denis DO Primary Care Provider Encounter Details Date Type Department Care Team (Latest Contact Info) Description 03/11/2019 10:40 AM EDT Office Visit [place] [address] Tal Eagle MD [facility] [place] [address] H/O kidney transplant; Aftercare following organ transplant; [...] slowly recovering. He plans to go to [place] to visit his elderly mother. He has [...] for diabetics, every 5 for non diabetics [place] kidney ultrasound looking for renal cell CA, [...] from 03/11/2019 in Solid Organ Trans[facility] [place] [facility] Weight 97.2 kg (214 lb 3.2 oz) [...] UA Latest Ref Range: Clear Clear Spec Entiat UA Latest Ref Range: 1.002 - 1.030 [...] - Magnesium??gluconate??to 1000mg BID; increased today to [phone] TID -Advised not to take Baking soda [...] load undetectable after treatment in June ? [id number] labs f/u in September 2019 ?? ? Discussion with the patient and/or family concerned the following: ? Diagnostic results or recommended studies ? Prognosis; ? Risks and benefits of management; ? Instructions for management; ? Compliance with treatment; ? Risk factor reduction; ? Patient and family education. ? Total time 25 of 30 min in direct face to face residential substance abuse counselor. documented in this encounter Plan of Treatment Upcoming Encounters Date Type Department Care Team (Late st Contact Info) Description 06/22/2024 11:00 AM EST TH Visit (TeleHealth) Cardiology at [address] [phone] Byron Brown MD [facility] [place] [address] 07/14/2024 10:00 AM EST Hospital Encounter Non-[place]vasive [place] [address] Arrived documented as of this encounter Goals [...] 10:03 AM EDT) Creatinine, Urine 45 mg/dL [facility] Protein, Urine 31(H) 0 - 12 mg/dL [facility] Protein / Creatinine Ratio, Urine 0.7 ratio [facility] Urine specimen (specimen) 03/11/2019 10:03 AM EDT 03/11/2019 10:20 AM EDT Narrative Resulting Agency Comment Spec In Lab Tal Eagle MD URINE ORDERABLES [facility] [place] [address] * (ABNORMAL) Urinalysis with reflex Culture (03/11/2019 [...] LABORATORY Leukocytes, Urine Dipstick Negative Negative [facility] Appearance, Urine Dipstick Clear Clear [facility] Specific Entiat Urine Automated 1.011 1.002 - 1.030 [facility] Color, Urine Dipstick Yellow Yellow [facility] Reflex to Culture No [facility] Urine specimen obtained by clean catch procedure (specimen) 03/11/2019 10:03 AM EDT 03/11/2019 10:08 AM EDT Narrative Resulting Agency Comment Spec In Lab Tal Eagle MD URINE ORDERABLES Performing Organization Address [facility] Co de Phone Number [facility] [place] [address] * Tacrolimus level (03/11/2019 9:58 AM EDT) Tacrolimus 8.3 ng/mL [facility] Comment: Trough therapeutic: ??5-15 ng/mL Performed by ultra-performance liquid chromatography tandem mass spectrometry (UPLCMS/MS). This test was developed and its performance characteristics determined by [facility]. It has not been cleared [...] ORDERAB LES Performing Organization Address [facility]/ZIP Co de Phone Number [facility] [place] [address] * Uric acid (03/11/2019 9:58 AM EDT) Uric Acid 7.5 3.5 - 8.5 mg/dL [facility] Blood specimen (specimen) 03/11/2019 9:58 AM EDT 03/11/2019 10:23 AM EDT Narrative Resulting Agency Comment Spec In Lab Tal Eagle MD CHEMISTRY ORDERAB LES [facility] [place] [address] * Phosphorus (03/11/2019 9:58 AM EDT) Phosphorus 2.8 2.5 - 4.5 mg/dL [facility] Blood specimen (specimen) 03/11/2019 9:58 AM EDT 03/11/2019 10:23 AM EDT Narrative Resulting Agency Comment Spec In Lab Tal Eagle MD CHEMISTRY ORDERAB LES Performing Organization Address City/[facility]/ZIP Co de Phone Number [facility] [place] [address] * (ABNORMAL) Magnesium (03/11/2019 9:58 AM EDT) Magnesium 0.57(L) 0.69 - 1.07 mmol/L [facility] Blood specimen (specimen) 03/11/2019 9:58 AM EDT 03/11/2019 10:23 AM EDT Narrative Resulting Agency Comment Spec In Lab Tal Eagle MD CHEMISTRY ORDERAB LES Performing Organization Address City/[facility]/ZIP Co de Phone Number [facility] [place] [address] * Cholesterol, total (03/11/2019 9:58 AM EDT) Cholesterol, Total 83 mg/dL [facility] Comment: Lower Risk: <200 mg/dL Average Risk: 200-239 mg/dL Higher Risk: >bt=870 mg/dL Lipid Interpretation See Note [facility] Comment: Lipid management should be guided by a patient? s ASCVD risk, goals and preferences. ACC/AHA Guidelines recommend high intensity statin if clinical ASCVD or LDL greater than or equal to 190 mg/dL. http://FanGager [email or web address]).com/QOW-GBK-Fpfzziomf Adults aged 40-75 with LDL 70-189 mg/dL should have their 10 year ASCVD risk estimated with the ACC/AHA ASCVD risk electronic gaming device supervisor http://tools.acc.org/YLTMF-Dzaj-Luhbhobwg/ Statin should be discussed if risk greater [...] CHEMISTRY ORDERAB LES [facility] [place] [address] * (ABNORMAL) Comprehensive metabolic panel (non-fasting) (03/11/2019 9:58 AM EDT) Glucose 154 65 - 199 mg/dL [facility] Comment:Diabetes: >=200 mg/d L plus symptoms Blood Urea Nitrogen 19 10 - 20 mg/dL [facility] Creatinine 1.35 0.80 - 1.50 mg/dL [facility] [...] unit/L [facility] Alkaline Phosphatase 71 40 - 130 unit/L [facility] Bilirubin, Total 1.9(H) 0.2 - 1.3 mg/dL [facility] Est Glomerular Filtration Rate 53(L) >=60 mL/min/1. 73 m?? [facility] Comment: The eGFR was calculated using the CKD-EPI equation. As with all creatinine based estimates of kidney function, eGFR values calculated with the CKD-EPI equation are not accurate in patients with acute kidney failure, extremes of body mass or the acutely ill. [email or web address] eGFR 61 >=60 mL/min/1. 73 m?? [facility] Comment: The eGFR was calculated using the CKD-EPI equation. As with all creatinine based estimates of kidney function, eGFR values calculated with the CKD-EPI equation are not accurate in patients with acute kidney failure, extremes of body mass or the acutely ill. [email or web address] Blood specimen (specimen) 03/11/2019 9:58 AM EDT 03/11/2019 10:23 AM EDT Narrative Resulting Agency Comment Spec In Lab Tal Eagle MD CHEMISTRY ORDERAB LES [facility] [place] [address] * Reticulocyte Count (03/11/2019 9:58 AM EDT) Reticulocyte % 2.2 0.7 - 2.6 % [facility] Retic Abs # 0.110 0.030 - 0.120 x10(6)/mcL [facility] Immature Retic% 14.4 0.0 - 15.6 % [facility] Reticulated Hgb 35.8 31.3 - 40.2 pg [facility] Blood specimen (specimen) 03/11/2019 9:58 AM EDT 03/11/2019 10:23 AM EDT Narrative Resulting Agency Comment Spec In Lab Tal Eagle MD HEMATOLOGY ORDERA BLES Performing Organization Address [facility] de Phone Number [facility] [place] [address] documented in this encounter Visit Diagnoses Diagnosis H/O kidney transplant Kidney replaced by transplant Aftercare following organ transplant Hospital discharge follow-up Other follow-up examination Enterococcal bacteremia Bacteremia Prophylactic immunotherapy Need for prophylactic immunotherapy documented in this encounter Care Teams Automatic Drilling Machine Operator Relationship Specialty Start Date End Date Urbano Denis DO [address] [place] [address] PCP - General 09/03/12 03/17/22 Ruchi Valles RN Nurse Clinic Transplant Surgery 07/30/15 documented as of this encounter
--- OUTSIDE RECORDS SUMMARY | 2024-05-16 17:23 | XMS_ITS | Encounter Summary ---
Author Organization [facility] [place] [address] Care Team Providers Care Electric Wirer Name Role Phone Adeel Urbano KIRBY Primary Care Provider + [phone] Reason for Visit * Reason Onset Date Comments Medication Refill 04/06/2019 Encounter Details Date Type Department Care Team (Late st Contact Info) Description 04/06/2019 Refill Cardiology at [address] [phone] Byron Brown MD [facility] [place] [address] Medication Refill Social History Tobacco Use Types [...] EST TH Visit (TeleHealth) Cardiology at [address] [phone] Byron Brown MD [facility] [place] [place] [address] 07/14/2024 10:00 AM [facility] Hospital Encounter Non-[place] [address] Arrived documented as of this [...] filedocumented in this encounter Care Teams Electric Wirer Relationship Specialty Start Date End Date Urbano Denis DO [address] [facility] [address] [place] [address] PCP - General 09/03/12 03/17/22 Ruchi Valles RN Nurse Clinic Transplant Surgery 07/30/15 documented as of this encounter
--- OUTSIDE RECORDS SUMMARY | 2024-05-16 17:23 | XMS_ITS | Encounter Summary ---
[place] [address] Care Team Providers Care Urologist Md Name Role Phone Urbano Denis DO Primary Care Provider Encounter Details Date Type Department Care Team (Late st Contact Info) Description 04/20/2019 Telephone Cardiology at [address] [phone] Anel Proctor RN Social History Tobacco Use [...] Rx for the [place] to submit to [employer] with the application. Included contact information sheet for the Cardiology Department. Mrs. Bolden understands that she more than likely will need to apply again in July for [facility] . She has no other concerns at this time. Patient and or spouse know how to contact Cardiology office and understand they may do so at any time with further questions or concerns.\ Anel Proctor RN, [facility] Anel Proctor RN, [facility] . * Telephone Encounter - Anel Proctor RN - 04/20/2019 12:30 PM EDT Return call to patient spouse who was asking for Dr. Brown to sign application for Med Assistance form from [employer] for Eliquis. Patient apparently qualifies and need [...] 11:00 AM EST Visit (TeleHealth) Cardiology at [address] [phone] Byron Brown MD [facility] [place] [address] 07/14/2024 10:00 AM EST Hospital Encounter Non-Invasive [...] on filedocumented in this encounter Care Teams Urologist Md Relationship Specialty Start Date End Date Urbano Denis DO [address] [place] [address] PCP - General 09/03/12 03/17/22 Ruchi Valles RN Nurse Clinic Transplant Surgery 07/30/15 documented as of this encounter
--- OUTSIDE RECORDS SUMMARY | 2024-05-16 17:23 | XMS_ITS | Encounter Summary ---
Author Organization [facility] [place] [address] Care Team Providers Care Piping Blocker Name Role Phone Urbano Denis DO Primary Care Provider Encounter Details Date Type Department Care Team (Late st Contact Info) Description 04/28/2019 Ancillary Procedure Radiology Library at [facility] [place] [address] Urbano Denis DO [address] [place], [place] [address] Social History Tobacco Use Types Packs/Day Years [...] AM EST Visit (TeleHealth) Cardiology at [address] [phone] Byron Brown MD [facility] [place] [address] 07/14/2024 10:00 AM EST Hospital Encounter Non-[place] [address] Arrived documented as of this encounter Goals [...] Denis DO Danielle FILM LIBRARY ORD ERABLES [place], [place] documented in this encounter Visit Diagnoses Not on filedocumented in this encounter Care Teams Piping Blocker Relationship Specialty Start Date End Date Urbano Denis DO [address] [place] [address] PCP - General 09/03/12 03/17/22 Ruchi Valles RN Nurse Clinic Transplant Surgery 07/30/15 documented as of this encounter
--- OUTSIDE RECORDS SUMMARY | 2024-05-16 17:23 | XMS_ITS | Encounter Summary ---
Author Organization [facility] [place] [address] Care Team Providers Care Fisher Hand Line Name Role Phone Urbano Denis DO Primary Care Provider [phone] Encounter Details Date Type Department Care Team (Late st Contact Info) Description 04/06/2019 Orders Only Cardiology at [address] [phone] Byron Brown MD [facility] [place] [address] Social History Tobacco Use Types Packs/Day Years [...] Visit (TeleHealth) Cardiology at [address] [phone] Byron Brown MD [facility] [place] [address] 07/14/2024 10:00 AM EST Hospital Encounter Non-[place] [address] Arrived documented as of this encounter Goals [...] on filedocumented in this encounter Care Teams Fisher Hand Line Relationship Specialty Start Date End Date Urbano Denis DO [address] [place] [address] [address] [place] [address] PCP - General 09/03/12 03/17/22 Ruchi Valles RN Nurse Clinic Transplant Surgery 07/30/15 documented as of this encounter
--- OUTSIDE RECORDS SUMMARY | 2024-05-16 17:23 | XMS_ITS | Encounter Summary ---
Author Organization [facility] [place] [place] [address] Care Team Providers Care Washroom Cleaner Name Role Phone Urbano Denis DO Primary Care Provider Reason for Referral * Consultation (Routine) - Closed Specialty Diagnoses / Procedures Referred By Contac t Referred To Contact Infectious Diseases Diagnoses Bacteremia due to Enterococcus Pyelonephritis, acute Enterococcus faecalis infection Therese Lam MD [facility] [place] [address] Therese Lam MD [facility] [place] [address] Referral ID Status Reason Start Date Expiration Date V isits Requested Visits Authorized [id number] Closed Assume Subset of Care 02/09/2019 02/09/2020 1 1 Reason for Visit * Auth/Cert Specialty Diagnoses / Procedures Referred By Contac t Referred To Contact Diagnoses Fever PNEUMONIA Referral ID Status Reason Start Date Expiration Date Visits Re quested Visits Authorized [id number] 1 1 Encounter Details Date Type Department Care Team (Latest Contact Info) Description 02/06/2019 10:20 PM EDT - 02/11/2019 1:48 PM EDT Hospital Encounter [address] [address] Alessandro Limon [place] [address] [place] [address] [place] [address] Dyspnea, unspecified type; Bacteremia due to Enterococcus; [...] Ethel Bolden Patient Age: 68 y.o. Language: Ugandan Race: White Ethnicity: Not nor Admit date: [...] please contact your inpatient physician through the [facility] Senior Tableau Developer . Issues afterhours and on weekends will [...] Vitamin D deficiency ??? 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 MCFP current use of immunosuppressive drug ??? CAH [...] Staphylococcus ??? UTI (urinary tract infection) ??? RYA (acute kidney injury) ??? Kidney transplant infection [...] PT 23.5* INR 2.0 Studies: Blood culture [facility] 02/06 - no growth 4 days Urine [...] Your Primary Care Provider: Urbano Denis DO [phone] For questions regarding this document or issues relating to this hospitalization on the Medical Service, please contact your inpatient physician through the [facility] Senior Tableau Developer . Issues afterhours and on weekends will be handled by the Hospitalist staff on-call. General Instructions None Future Appointments and Orders Future Orders Complete By Expires OPAT: Order / Recommendation for Post Discharge IV Antibiotic Management [VUN591 CPT(R)] As directed Process Instructions: If no progress note charted, please enter Clinical details in comments. Scheduling Instructions: Comments: Please Fax all results to: OPAT Program Infectious Disease Section [facility], [place] [address] FAX: Line care instructions per [facility] OPAT Program protocol. After hours, please contact the Infectious Disease Physician consulting networking engineer at . If this order was signed greater than 72 hours prior to [facility] discharge, please call to confirm the accuracy [...] AM EDT ?? Office of Care Management /3D Technologist(CM) Facility Discharge on IV AntibioticTherapy ?? Patient will require continued IV antibiotic therapy after discharge from the hospital per Dr. Gandhi is medically ready for discharge. ?? Patient has accepted a bed offer from: [facility] Acute Rehabilitation and Sub-Acute (Swing) Rehab Levels of Care [address] [place] [address] IV access: Peripheral IV Line - Single [...] Your Primary Care Provider: Urbano Denis DO [phone] For questions regarding this document or issues relating to this hospitalization on the Medical Service, please contact your inpatient physician through the [facility] Senior Tableau Developer . Issues afterhours and on weekends will [...] D deficiency ??? 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 CAH [...] spent >30 minutes (Day of Discharge Code 91799) involved in the final examination of the [...] Physician: Danny Hicks MD Patient discharged to [facility] with in personal vehicle. Patient left with all personal belongings. IV is in place per MD orders. Documentation packet given to to be given to facility. DC Summary faxed to facility. Report called to JADEN Bauman at [facility]. Patient escorted to [facility] by RN. * Mahsa Celestin RN - 02/11/2019 1:11 PM EDT Marisela and Jolly from [facility] confirmed son has contacted them and oxygen needs will be delivered to patient today. Marisela states son was instructed to call [facility] upon discharge to schedule time of delivery. CM will continue to follow and assist with discharge planning and coordination of care as indicated. * oJlly Blum - 02/11/2019 10:23 AM EDT Images from the original note were not included. Office of Care Management/Computer Recycling Worker Patient Name: Ethel Bolden : 1950 Patient has been offered a swing bed at [facility], today 02/11 Family will transport patient to facility. Copy of patient demographics [place] Out of Hospital DNR/DNI order, if active MD to MD report to Dr Ramos at [phone] Please call Nursing Report to [phone] , ask for exterminator helper. Info to accompany patient: Narcotic Prescriptions Copies of Medication Administration Records and IV sheets for past 10 days. Plan: Computer Recycling Worker will be available to the patient and 3D Technologist-RN and/or Social Workerfor further assistance. Patient will be discharged to: [facility] [address] [place] [address] Jolly Blum Computer Recycling Worker * Mahsa Celestin RN - 02/11/2019 10:17 AM EDT Office of Care Management /3D Technologist(CM) Facility Discharge on IV AntibioticTherapy Patient will require continued IV antibiotic therapy after discharge from the hospital per Dr. Gandhi is medically ready for discharge. Patient has accepted a bed offer from: [facility] Acute Rehabilitation and Sub-Acute (Swing) Rehab Levels of Care [address] [place] [address] IV access: Peripheral IV Line - Single Lumen, cephalic vein (lateral side of arm), right 20 gauge; 1 in length Placed 02/07/19 * Mahsa Celestin RN - 02/11/2019 9:19 AM EDT Spoke with Sonia at [facility], for patient to receive services, [facility]NA would need complete support from with antibiotic therapy. Patient accepted bed at [facility]. [facility] and [facility] made aware. Patient [...] discharge planning needs. I have reviewed the [facility], Office of Care Management letter from the Sheet Folder pertaining to rehab referrals. I have also reviewed a letter describing our affiliations within the [facility]. I have provided information on the right to choose where referrals are placed. ?? I reviewed the different levels of rehab including SNF, swing, acute and LTAC. ?? I provided a list of facilities within the preferred geographic area. ?? I have requested that the patient provide at least three choices for referral. ?? The patient requested referrals to: 1. [facility] [address] [place] [address] ?? [phone] 2. [facility] PHONE: [phone] FAX: [phone] Nurse to Nurse report: [phone] Ajith Moreno [place] [address] 3. [place], [place], [place] PHONE: [phone] ext [phone] FAX: [phone] ?? Expected date of discharge: 02/11/19 Note routed to Computer Recycling Worker who will communicate referrals to facilities and provide any required information. * Venus Chand RD - 02/10/2019 1:36 PM EDT Nutrition Note: Patient is now downgraded to floor medicine. He continues to eat 100%. He is not available in room at time of my visit. Will follow up to offer education as able/appropriate. THANKS REYNALDO Mckeon Page [phone] * Mahsa Celestin RN - 02/10/2019 12:46 PM EDT I reviewed a list of Home Health Agencies/DME vendors with patient which serve the preferred geographic area. Education provided about the right to choose where referrals are placed. Patient requests referral to [facility] PHONE: [phone] FAX: [phone] Expected date of discharge: 02/11/19 Referral routed to the Computer Recycling Worker for matching with agency/vendor and to provide any required information. Patient asked for this keno writer to speak with in regards to choosing an infusion vendor, he was not able to recall who he had used in 2016. This keno writer will call . Called patient, she did not provide an infusion company's name and stated she is not taking patient home on IV antibiotics. She asked for a call from Dr. Hicks. made aware. Discussed with patient that did not have the name of infusion vendor. He agreed to a referral to be placed to: [place], [place] or Referral routed to the Computer Recycling Worker for matching with vendor and to provide [...] minimumof two midnights or is on the [facility] inpatient only procedure list (status C) due [...] us. Leelee Church MD 02/09/2019 2:00 PM 3169 ID ATTENDING I have seen the patient, [...] other appointment? What specialty? Weekly infusion at [facility]? [ ] yes: if so, please indicate [...] scale - Disposition: PT/OT eval, transfer from [facility] today IPI Certification I certify that I am a D-H credentialed attending provider with admitting privileges and that the patient meets or has met medical necessity to require an inpatient IPI level of care meeting a minimumof two midnights or is on the [facility] inpatient only procedure list (status C) due [...] scale - Disposition: PT/OT eval, transfer from [facility] today IPI Certification I certify that I am a D-H credentialed attending provider with admitting privileges and that the patient meets or has met medical necessity to require an inpatient IPI level of care meeting a minimumof two midnights or is on the [facility] inpatient only procedure list (status C) due [...] chloride 0.9 % (flush) * Elba Maciel, LANDING SIGNAL OFFICER - 02/08/2019 3:09 AM EDT Respiratory Therapy [...] number below. Electronically signed by: Franca Francisco [facility] ([phone]), at 02/07/2019 12:02 AM ASSESSMENT: received on [...] number below. Electronically signed by: Franca Francisco [facility] ([phone]), at 02/07/2019 12:02 AM ASSESSMENT: Patient received on HFNC 50L/50%. Settings weaned to 40L/40% per SpO2. Patient does have episodes of desaturation if NC moves out of nose. PLAN: Continue to titrate settings as tolerated. RT Shell * Maureen oHlloway RD - 02/07/2019 12:31 PM EDT Nutrition [...] hepatitis) K73.2 ??? Prophylactic immunotherapy Z29.8 ??? 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 [...] encounter: 101.4 kg (223 lb 9.6 oz). Evart Body Weight (IBW): Evart body weight: 75.3 kg (166 lb 0.1 [...] reach the patient's provider, Suzy Hicks MD #[id number], regarding above. REYNALDO URIBE Beeper #: [phone] * Danny Hicks MD - 02/07/2019 8:27 [...] Glycemic control: insulin sliding scale - [facility] Cert[facility] I certify that I am a D-H credentialed attending provider with admitting privileges and that the patient meets or has met medical necessity to require an inpatient IPI level of care meeting a minimumof two midnights or is on the [facility] inpatient only procedure list (status C) due to: acute respiratory compromise and/or hypoxia requiring assessment every 4 hours and the ability to respond immediately to the patient's need Danny Hicks MD TEAM/PAGER: [phone] Subjective/24hr events: - pt reports feeling better [...] chloride 0.9 % (flush) * Les Betancourt [facility] - 02/07/2019 3:28 AM EDT Respiratory [...] number below. Electronically signed by: Franca Francisco [facility] ([phone]), at 02/07/2019 12:02 AM ASSESSMENT: ~02:30 LANDING SIGNAL OFFICER paged to assess pt for increasing FiO2 [...] Stoddard MD - 02/06/2019 8:[address] [facility] Medicine History and Physical History provided by: [...] soft also with bradycardia patient, notably hypoxic [id number]% Ventimask, chest x-ray with evidence of pulmonary [...] BLADDER performed by Santosh Arredondo MD at [facility] OR ??? PRO REIMPLANT URETER, SINGLE URETER N/A 05/20/2016 @URETERONEOCYSTOSTOMY ANASTOMOSIS OF SINGLE URETER TO BLADDER performed by Que Amaro MD at [facility] OR ??? PRO TOTAL KNEE ARTHROPLASTY Right 11/25/2017 TOTAL KNEE ARTHROPLASTY (WRVU 20.72) performed by Breezy Dale MD at [facility] OR ??? PRO TRANSPLANT, PREP CADAVER RENAL GRAFT N/A 09/16/2015 @PREPARATION CADAVERIC RENAL ALLOGRAFT performed by Franko Larkin MD at [facility] OR ??? PRO TRANSPLANTATION OF KIDNEY N/A 09/16/2015 @KIDNEY TRANSPLANT, WITHOUT RECIPIENT NEPHRECTOMY performed by Franko Larkin MD at [facility] OR ??? RENAL TRANSPLANT LEFT Left 01/31/2019 US Renal Transplant Left 01/31/2019 [facility] Family Medical History: Family [...] file Gets together: Not on file Attends buddhist service: Not on file Active member of [...] floor Social History: lives with his in [place], [place] Home set-up: 2-level home but stays [...] Gait: good without device to bend to picking supervisor caution sign and turn to [...] 30(functional mobility, gait) TORIE HAGAN, PT Pager: [phone] Physical Therapy Inpatient Rehabilitation Department * Plan [...] -- 0 Score -- -- 45 OTHER [place] Fall Risk -- -- High Restraint Interventions [...] 2-3 times/wk Total Evaluation Minutes, Occupational Therapy: 45([place]) Pager: [phone] СЕРГЕЙ Schmidt Occupational Therapy Rehabilitation Department * [...] 133 K: 3.8 P: 2.1 Blood culture [facility] 02/06 - no growth 3 days Urine [...] 02/11 or 02/12 Destinee Leggett M4 Pager: [phone] * Plan of Care - Josefina English RN - 02/10/2019 2:50 AM EDT Problem: Patient Care Overview Goal: Plan of Care Review Outcome: Ongoing (Interventions Implemented as Appropriate) 02/10/19 0236 Coping/Psychosocial Plan Of Care Reviewed With patient Plan of Care Review Progress improving OUTCOME EVALUATION NOTE: OUTCOME SUMMARY: [facility] beginning of shift. [...] <-- 132 <--133 K: 3.6 Blood culture [facility] 02/06 - no growth 2 day Urine [...] for her ?? Destinee Leggett M4 Pager: [phone] * Plan of Care - Torie Hagan, [...] at [facility] OR ??? PRO CYSTOURETHROSCOPY, URETER CATHETER Left 06/17/2018 CYSTO, RETROGRADE, URETEROPYELOGRAPHY (WRVU 2.37) performed by Edinson Grider III[facility] ??? PRO REIMPLANT URETER, SINGLE URETER Left 05/20/2016 @URETERONEOCYSTOSTOMY ANASTOMOSIS OF SINGLE URETER TO BLADDER performed by Santosh Arredondo MD at [facility] OR ??? PRO REIMPLANT URETER, SINGLE URETER N/A 05/20/2016 @URETERONEOCYSTOSTOMY ANASTOMOSIS OF SINGLE URETER TO BLADDER performed by Que Amaro MD at [facility] OR ??? PRO TOTAL KNEE ARTHROPLASTY Right 11/25/2017 TOTAL KNEE ARTHROPLASTY (WRVU 20.72) performed by Breezy Dale MD at [facility] OR ??? PRO TRANSPLANT, PREP CADAVER RENAL GRAFT N/A 09/16/2015 @PREPARATION CADAVERIC RENAL ALLOGRAFT performed by Franko Larkin MD at [facility] OR ??? PRO TRANSPLANTATION OF KIDNEY N/A 09/16/2015 @KIDNEY TRANSPLANT, WITHOUT RECIPIENT NEPHRECTOMY performed by Franko Larkin MD at [facility] OR ??? US RENAL TRANSPLANT LEFT Left 01/31/2019 US Renal Transplant Left 01/31/2019 [facility] ??? US RENAL TRANSPLANT LEFT Left 02/07/2019 US Renal Transplant Left 02/07/2019 [facility] Social History: lives with his in [place], [place] Home set-up: 2-level home but stays [...] 63(eval; pt/family ed/discussion) TORIE HAGAN, PT Pager: [phone] Physical Therapy Inpatient Rehabilitation Department * Plan [...] BLADDER performed by Santosh Arredondo MD at [facility] OR ??? PRO REIMPLANT URETER, SINGLE URETER N/A 05/20/2016 @URETERONEOCYSTOSTOMY ANASTOMOSIS OF SINGLE URETER TO BLADDER performed by Que Amaro MD at [facility] OR ??? PRO TOTAL KNEE ARTHROPLASTY Right 11/25/2017 TOTAL KNEE ARTHROPLASTY (WRVU 20.72) performed by Breezy Dale MD at [facility] OR ??? PRO TRANSPLANT, PREP CADAVER RENAL GRAFT N/A 09/16/2015 @PREPARATION CADAVERIC RENAL ALLOGRAFT performed by Franko Larkin MD at [facility] OR ??? PRO TRANSPLANTATION OF KIDNEY N/A 09/16/2015 @KIDNEY TRANSPLANT, WITHOUT RECIPIENT NEPHRECTOMY performed by Franko Larkin MD at [facility] OR ??? US RENAL TRANSPLANT LEFT Left 01/31/2019 US Renal Transplant Left 01/31/2019 [facility] ??? US RENAL TRANSPLANT LEFT Left 02/07/2019 US Renal Transplant Left 02/07/2019 [facility] Social History: Patient lives with his Mara in a home in with 4 steps to enter, stays on the 1st level, has astuntapt shower w/ a seat and grab bars [...] increased) Vision & Perception: ?? 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 Difficulty seeing small print on phone but improved w/ increased font size Communication: WFL Range of motion, strength, coordination: Hand dominance: right Bilateral UEs are within functional limitations for strength and ROM (few manager income tax slips w/ tasks possibly r/t tingling) LE [...] and measurable assessment of functional outcome. Pager: [phone] GAYLE MCCRARY OT 02/09/2019 Occupational Therapy Rehabilitation [...] this shift. Pt denied pain. Continues to [id number] via NC to maintain O2 sats >92%. [...] CD4:CD8: 2.31 IgG = 884 Blood culture [facility] 02/06 - no growth 1 day Urine [...] floor today ?? Destinee Leggett M4 Pager: [phone] * Consult Note - Juancho Zuluaga, [facility] - 02/07/2019 7:45 PM EDT Clinical Pharmacist Note-Vancomycin Ethel Bolden [id number] Ethel Bolden is a 68 y.o. [...] have. Alternately, during off-hours you may call [phone] to contact a pharmacist. JUANCHO ZULUAGA RPH [...] evaluation in the ED. Initially going to in [place] he was noted to be febrile and [...] performed by [facility] ??? PRO REIMPLANT URETER, SINGLE URETER Left 05/20/2016 @URETERONEOCYSTOSTOMY ANASTOMOSIS OF SINGLE URETER TO BLADDER performed by Santosh Arredondo MD at [facility] OR ??? PRO REIMPLANT URETER, SINGLE URETER N/A 05/20/2016 @URETERONEOCYSTOSTOMY ANASTOMOSIS OF SINGLE URETER TO BLADDER performed by Que Amaro MD at [facility] OR ??? PRO TOTAL KNEE ARTHROPLASTY Right 11/25/2017 TOTAL KNEE ARTHROPLASTY (WRVU 20.72) performed by Breezy Dale MD at [facility] OR ??? PRO TRANSPLANT, PREP CADAVER RENAL GRAFT N/A 09/16/2015 @PREPARATION CADAVERIC RENAL ALLOGRAFT performed by Franko Larkin MD at [facility] OR ??? PRO TRANSPLANTATION OF KIDNEY N/A 09/16/2015 @KIDNEY TRANSPLANT, WITHOUT RECIPIENT NEPHRECTOMY performed by Franko Larkin MD at [facility] OR ??? US RENAL TRANSPLANT LEFT Left 01/31/2019 US Renal Transplant Left 01/31/2019 [facility] ??? US RENAL TRANSPLANT LEFT Left 02/07/2019 US Renal Transplant Left 02/07/2019 [facility] Medications: ??? glucose (GLUTOSE) [...] concerns. Leelee Church MD 02/07/2019 5:52 PM [id number] ID ATTENDING I have seen the patient, [...] Planning: written AD ,on file addy perkins [phone]/ [phone] Current Coping/Education/Information Needs: CM explained VNA, IPR,SNF [...] COMMERCIAL GENERIC Prescription Coverage: yes Preferred Pharmacy: [facility] Primary Care Provider: Urbano Denis DO [phone] Patient/Caregiver Goals of Treatment: home with VNA Potential Needs for Transition of Care: Rehab/SNF: na Home Health: VNA DME: owns cane/FWW Dialysis: ? Community Resources: na Transportation: Anticipated Barriers to Discharge/Special Considerations: had called renal transplant tea, to state she needed help at home with spouse as she cannot handle him anymore CM Will place VNA referral and place VULCANIZING PRESS OPERATOR in VNA orders as well as VULCANIZING PRESS OPERATOR consul tfor on CM stickynote Assessment: 68yowm [...] of care planning. Patricia Jones RN Pager: [phone] * Med Student Progress Note - Destinee [...] urine cultures ?? Destinee Leggett M4 Pager: [phone] * Consult Note - Ozzy Lane, RN - 02/07/2019 4:00 AM EDT Life Safety Note [id number] [facility] increased weakness and SOB. Patient confused to time/dateyear. PCXR at 2352 showed cardiomegaly with pulmonary edema. Lasix 40 mg IV administered at 0034. [place] condom applied to patient. Became febrile at 0213, 39.5 with rigors. Tylenol administered by primary nurse. Heart Rate vbdvexj11's-110's, regular ,blood pressure 90's/70's, RR mid 30's, SOB mildly labored. Oxygen requirementsincreasing. Hi-Compa NC initiated by LANDING SIGNAL OFFICER. ABG on Fio2 50% : 7.50/33/77/24.7/94.9, lactate 1.5 Patientstarted on ceftazidime and vancomycin. Patient remains confused to date/time/year. WBC now 19.7. A/P ? Heart failure/pneumonia Transfer patient to ISCU level of care for closer monitoring; to [facility] in ICU room 6. MARK OhN ,CCRN,RN documented in this encounter Plan of Treatment Upcoming Encounters Date Type Department Care Team (Late st Contact Info) Description 06/22/2024 11:00 AM EST TH Visit (TeleHealth) Cardiology at [address] [address] Byron Brown MD [facility] [place] [address] 07/14/2024 10:00 AM EST Hospital Encounter [place] [address] Arrived Scheduled Referrals Name Type [...] Glucose, POC 182 65 - 199 mg/dL [facility] Comment: Supplemental ranges: <140 mg/dL before meals <180 mg/dL all other times of the day Blood specimen (specimen) 02/11/2019 11:28 AM EDT 02/11/2019 11:28 AM EDT Danny Hicks MD POINT OF CARE TEST O RDERABLES Performing Organization Address City/State/[facility] Co de Phone Number [facility] [place] [address] * POCT Glucose (02/11/2019 6:51 AM EDT) Glucose, POC 134 65 - 199 mg/dL [facility] Comment: Supplemental ranges: <140 mg/dL before meals <180 mg/dL all other times of the day Blood specimen (specimen) 02/11/2019 6:51 AM EDT 02/11/2019 6:51 AM EDT Danny Hicks MD POINT OF CARE TEST O RDERABLES [facility] [place] [address] * Basic Metabolic Panel (non-fasting) (02/11/2019 5:43 AM EDT) Glucose 155 65 - 199 mg/dL [facility] Comment:Diabetes: >=200 mg/d L plus symptoms Blood Urea Nitrogen 17 10 - 20 mg/dL [facility] Creatinine 1.20 0.80 - 1.50 mg/dL [facility] Sodium 138 135 - 145 mmol/L [facility] Potassium 3.8 3.5 - 5.0 mmol/L [facility] Comment: Please note: ??Patients with WBC >100,000 may have falsely elevated Potassium levels. ??For accurate Potassium quantification in these patients send serum separator tube (gold top) for subsequent determinations. ??Contact the Clinical Chemistry Laboratory if there are any questions. Chloride 99 98 - 107 mmol/L [facility] Carbon Dioxide 28 22 - 31 mmol/L [facility] Anion Gap 11 5 - 15 mmol/L [facility] Calcium 8.6 8.5 - 10.5 mg/dL [facility] LABORATORY Est Glomerular Filtration Rate 61 >=60 mL/min/1. 73 m?? [facility] Comment: The eGFR was calculated using the CKD-EPI equation. As with all creatinine based estimates of kidney function, eGFR values calculated with the CKD-EPI equation are not accurate in patients with acute kidney failure, extremes of body mass or the acutely ill. [email or web address] eGFR 71 >=60 mL/min/1. 73 m?? [facility] Comment: The eGFR was calculated using the CKD-EPI equation. As with all creatinine based estimates of kidney function, eGFR values calculated with the CKD-EPI equation are not accurate in patients with acute kidney failure, extremes of body mass or the acutely ill. [email or web address] Blood specimen (specimen) 02/11/2019 5:43 AM EDT 02/11/2019 5:57 AM EDT Narrative Resulting Agency Comment Spec In Lab Danny Hicks MD CHEMISTRY ORDERABLES Performing Organization Address City/State/[facility] Co de Phone Number [facility] [place] [address] * (ABNORMAL) Hemogram (02/11/2019 5:43 AM EDT) White Blood Cell 9.2 4.0 - 9.5 x10(3)/ L [facility] Red Blood Cell 4.39(L) 4.58 - 5.54 x10(6)/mc L [facility] Hemoglobin 13.4(L) 13.7 - 16.5 gm/dL [facility] Hematocrit 39.9(L) 40.5 - 48.5 % [facility] Mean Cell Volume 90.9 82.9 - 93.1 [facility] Mean Cell Hemoglobin 30.5 27.5 - 32.1 pg [facility] Mean Cell Hemoglobin Concentration 33.6 32.0 - 35.7 gm/dL [facility] Platelet 281 145 - 357 x10(3)/mc L [facility] RDW Standard Deviation 43.1 36.0 - 45.0 [facility]ATORY RDW coefficient of variation 13.2 11.4 - 13.8 % [facility] Mean Platelet Volume 9.5 7.6 - 12.9 [facility]ATORY NRBC% auto 0.0 % [facility] NRBC Absolute 0.000 0.000 - 0.000 x10(3)/ L [facility] Blood specimen (specimen) 02/11/2019 5:43 AM EDT 02/11/2019 5:57 AM EDT Narrative Resulting Agency Comment Spec In Lab Danny Hicks MD HEMATOLOGY ORDERABLE S [facility] [place] [address] * POCT Glucose (02/10/2019 9:05 PM EDT) Glucose, POC 181 65 - 199 mg/dL [facility] Comment: Supplemental ranges: <140 mg/dL before meals <180 mg/dL all other times of the day Blood specimen (specimen) 02/10/2019 9:05 PM EDT 02/10/2019 9:05 PM EDT Danny Hicks MD POINT OF CARE TEST O TED Performing Organization Address [facility] Co de Phone Number [facility] [place] [address] * POCT Glucose (02/10/2019 4:53 PM EDT) Glucose, POC 165 65 - 199 mg/dL [facility] Comment: Supplemental ranges: <140 mg/dL before meals <180 mg/dL all other times of the day Blood specimen (specimen) 02/10/2019 4:53 PM EDT 02/10/2019 4:53 PM EDT Danny Hicks MD POINT OF CARE TEST O TED Performing Organization Address [facility] Co de Phone Number [facility] [place] [address] * POCT Glucose (02/10/2019 11:12 AM EDT) Glucose, POC 175 65 - 199 mg/dL [facility] Comment: Supplemental ranges: <140 mg/dL before meals <180 mg/dL all other times of the day Blood specimen (specimen) 02/10/2019 11:12 AM EDT 02/10/2019 11:12 AM EDT Danny Hicks MD POINT OF CARE TEST O TED Performing Organization Address [facility]/ZIP Co de Phone Number [facility] [place] [address] * POCT Glucose (02/10/2019 6:51 AM EDT) [facility] Glucose, POC 126 65 - 199 mg/dL [facility] Comment: Supplemental ranges: <140 mg/dL before meals <180 mg/dL all other times of the day Blood specimen (specimen) 02/10/2019 6:51 AM EDT 02/10/2019 6:51 AM EDT Danny Hicks MD POINT OF CARE TEST O RDERABLES Performing Organization Address City/[facility]/ZIP Co de Phone Number [facility] [place] [address] * (ABNORMAL) Phosphorus (02/10/2019 5:46 AM EDT) [facility] Phosphorus 2.1(L) 2.5 - 4.5 mg/dL [facility] Blood specimen (specimen) Venous Draw / Unknown 02/10/2019 5:46 AM EDT 02/10/2019 7:11 AM EDT Narrative Resulting Agency Comment Spec In Lab Danny Hicks MD CHEMISTRY ORDERABLES [facility] [place] [address] * (ABNORMAL) Differential, Automated (02/10/2019 5:46 AM EDT) [facility] Neutrophil % 72.7 % [facility] Neutrophil Absolute 6.58(H) 1.70 - 6.10 x10(3)/mc L [facility] Lymph % 11.6 % [facility] Lymphocytes Abs 1.0 0.9 - 3.2 x10(3)/mc L [facility] Monocyte % 13.5 % [facility] Monocyte Abs 1.2(H) 0.3 - 0.9 x10(3)/mc L [facility] Eos % 1.1 % [facility] Eosinophils Abs 0.1 0.0 - 0.4 x10(3)/[facility]ORATORY Basophil % 0.4 % [facility] Baso Absolute 0.0 0.0 - 0.1 x10(3)/[facility]ORATORY Immature Gran % 0.70 % [facility] Comment: Immature granulocytes(IG's)percentage and absolute count will include metamyelocytes, myelocytes, and promyelocytes. Blood smears from CBCs yielding IG's will be scanned manually for concordance. If this scan disagrees with the automated IG or if promyelocytes are noted, a manual differential will be performed. Immature Gran Absolute 0.06(H) 0.00 - 0.04 x10(3)/[facility] Blood specimen (specimen) 02/10/2019 5:46 AM EDT 02/10/2019 6:02 AM EDT Narrative Resulting Agency Comment Spec In Lab Danny Hicks MD HEMATOLOGY ORDERABLE S [facility] [place] [address] * (ABNORMAL) Hemogram (02/10/2019 5:46 AM EDT) White Blood Cell 9.0 4.0 - 9.5 x10(3)/[facility]AT[facility] Red Blood Cell 4.40(L) 4.58 - 5.54 x10(6)/[facility] Hemoglobin 13.5(L) 13.7 - 16.5 gm/dL [facility] Hematocrit 39.6(L) 40.5 - 48.5 % [facility] Mean Cell Volume 90.0 82.9 - 93.1 fL [facility] Mean Cell Hemoglobin 30.7 27.5 - 32.1 pg [facility] Mean Cell Hemoglobin Concentration 34.1 32.0 - 35.7 gm/dL [facility] Platelet 244 145 - 357 x10(3)/mc L [facility] RDW Standard Deviation 43.5 36.0 - 45.0 fL [facility] RDW coefficient of variation 13.2 11.4 - 13.8 % [facility] Mean Platelet Volume 9.7 7.6 - 12.9 fL [facility] NRBC% auto 0.0 % [facility] NRBC Absolute 0.000 0.000 - 0.000 x10(3)/mc L [facility] Blood specimen (specimen) 02/10/2019 5:46 AM EDT 02/10/2019 6:02 AM EDT Narrative Resulting Agency Comment Spec In Lab Danny Hicks MD HEMATOLOGY ORDERABLE S Performing Organization Address City/State/[facility] Co de Phone Number [facility] [place] [address] * (ABNORMAL) Basic Metabolic Panel (non-fasting) (02/10/2019 5:46 AM EDT) Glucose 136 65 - 199 mg/dL [facility] Comment:Diabetes: >=200 mg/d L plus symptoms Blood Urea Nitrogen 18 10 - 20 mg/dL [facility] Creatinine 1.31 0.80 - 1.50 mg/dL [facility] Sodium 133(L) 135 - 145 mmol/L [facility] Potassium 3.8 3.5 - 5.0 mmol/L [facility] Comment: Please note: ??Patients with WBC >100,000 may have falsely elevated Potassium levels. ??For accurate Potassium quantification in these patients send serum separator tube (gold top) for subsequent determinations. ??Contact the Clinical Chemistry Laboratory if there are any questions. Chloride 96(L) 98 - 107 mmol/L [facility] Carbon Dioxide 28 22 - 31 mmol/L [facility] Anion Gap 9 5 - 15 mmol/L [facility] Calcium 8.5 8.5 - 10.5 mg/dL [facility] Est Glomerular Filtration Rate 55(L) >=60 mL/min/1. 73 m?? [facility] Comment: The eGFR was calculated using the CKD-EPI equation. As with all creatinine based estimates of kidney function, eGFR values calculated with the CKD-EPI equation are not accurate in patients with acute kidney failure, extremes of body mass or the acutely ill. [email or web address] eGFR 63 >=60 mL/min/1. 73 m?? [facility] Comment: The eGFR was calculated using the CKD-EPI equation. As with all creatinine based estimates of kidney function, eGFR values calculated with the CKD-EPI equation are not accurate in patients with acute kidney failure, extremes of body mass or the acutely ill. [email or web address] Blood specimen (specimen) 02/10/2019 5:46 AM EDT 02/10/2019 6:02 AM EDT Narrative Resulting Agency Comment Spec In Lab Danny Hicks MD CHEMISTRY ORDERABLES Performing Organization Address City/[facility]/ZIP Co de Phone Number [facility] [place] [address] * (ABNORMAL) POCT Glucose (02/09/2019 9:33 PM EDT) Glucose, POC 213(H) 65 - 199 mg/dL [facility] Comment: Supplemental ranges: <140 mg/dL before meals <180 mg/dL all other times of the day Blood specimen (specimen) 02/09/2019 9:33 PM EDT 02/09/2019 9:33 PM EDT Danny Hicks MD POINT OF CARE TEST O RDERABLES Performing Organization Address City/[facility]/ZIP Co de Phone Number [facility] [place] [address] * POCT Glucose (02/09/2019 8:19 PM EDT) Glucose, POC 176 65 - 199 mg/dL [facility] Comment: Supplemental ranges: <140 mg/dL before meals <180 mg/dL all other times of the day Blood specimen (specimen) 02/09/2019 8:19 PM EDT 02/09/2019 8:19 PM EDT Danny Hicks MD POINT OF CARE TEST O TED Performing Organization Address City/[facility]/ZIP Co de Phone Number [facility] [place] [address] * POCT Glucose (02/09/2019 5:33 PM EDT) Glucose, POC 121 65 - 199 mg/dL [facility] Comment: Supplemental ranges: <140 mg/dL before meals <180 mg/dL all other times of the day Blood specimen (specimen) 02/09/2019 5:33 PM EDT 02/09/2019 5:33 PM EDT Danny Hicks MD POINT OF CARE TEST O TED Performing Organization Address [facility]/ZIP Co de Phone Number [facility] [place] [address] * POCT Glucose (02/09/2019 11:30 AM EDT) Glucose, POC 172 65 - 199 mg/dL [facility] Comment: Supplemental ranges: <140 mg/dL before meals <180 mg/dL all other times of the day Blood specimen (specimen) 02/09/2019 11:30 AM EDT 02/09/2019 11:30 AM EDT Danny Hicks MD POINT OF CARE TEST O TED Performing Organization Address City/[facility]/ZIP Co de Phone Number [facility] [place] [address] * POCT Glucose (02/09/2019 8:32 AM EDT) Glucose, POC 149 65 - 199 mg/dL [facility] Comment: Supplemental ranges: <140 mg/dL before meals <180 mg/dL all other times of the day Blood specimen (specimen) 02/09/2019 8:32 AM EDT 02/09/2019 8:32 AM EDT Danny Hicks MD POINT OF CARE TEST O RDERABLES [facility] [place] [address] * (ABNORMAL) Differential, Automated (02/09/2019 3:55 AM EDT) Neutrophil % 74.3 % [facility] Neutrophil Absolute 6.75(H) 1.70 - 6.10 x10(3)/mc L [facility] Lymph % 9.4 % [facility] Lymphocytes Abs 0.8(L) 0.9 - 3.2 x10(3)/ L [facility] Monocyte % 15.3 % [facility] Monocyte Abs 1.4(H) 0.3 - 0.9 x10(3)/mc L [facility] Eos % 0.2 % [facility] Eosinophils Abs 0.0 0.0 - 0.4 x10(3)/ L [facility] Basophil % 0.2 % [facility] Baso Absolute 0.0 0.0 - 0.1 x10(3)/mc L [facility] Immature Gran % 0.60 % [facility] Comment: Immature granulocytes(IG's)percentage and absolute count will include metamyelocytes, myelocytes, and promyelocytes. Blood smears from CBCs yielding IG's will be scanned manually for concordance. If this scan disagrees with the automated IG or if promyelocytes are noted, a manual differential will be performed. Immature Gran Absolute 0.05(H) 0.00 - 0.04 x10(3)/mc L [facility] Blood specimen (specimen) 02/09/2019 3:55 AM EDT 02/09/2019 4:09 AM EDT Narrative Resulting Agency Comment Spec In Lab Danny Hicks MD HEMATOLOGY ORDERABLE S Performing Organization Address City/[facility]/ZIP Co de Phone Number [facility] [place] [address] * (ABNORMAL) Hemogram (02/09/2019 3:55 AM EDT) White Blood Cell 9.1 4.0 - 9.5 x10(3)/mc L [facility] Red Blood Cell 4.24(L) 4.58 - 5.54 x10(6)/mc L [facility] Hemoglobin 13.3(L) 13.7 - 16.5 gm/dL [facility] Hematocrit 38.3(L) 40.5 - 48.5 % [facility] Mean Cell Volume 90.3 82.9 - 93.1 [facility] Mean Cell Hemoglobin 31.4 27.5 - 32.1 pg [facility] Mean Cell Hemoglobin Concentration 34.7 32.0 - 35.7 gm/dL [facility] Platelet 220 145 - 357 x10(3)/mc L [facility] RDW Standard Deviation 43.8 36.0 - 45.0 [facility] RDW coefficient of variation 13.3 11.4 - 13.8 % [facility] Mean Platelet Volume 9.8 7.6 - 12.9 [facility] NRBC% auto 0.0 % [facility] NRBC Absolute 0.000 0.000 - 0.000 x10(3)/mc L [facility] Blood specimen (specimen) 02/09/2019 3:55 AM EDT 02/09/2019 4:09 AM EDT Narrative Resulting Agency Comment Spec In Lab Danny Hicks MD HEMATOLOGY ORDERABLE S [facility] [place] [address] * (ABNORMAL) Basic Metabolic Panel (non-fasting) (02/09/2019 3:55 AM EDT) Glucose 173 65 - 199 mg/dL [facility] Comment:Diabetes: >=200 mg/d L plus symptoms Blood Urea Nitrogen 24(H) 10 - 20 mg/dL [facility] Creatinine 1.58(H) 0.80 - 1.50 mg/dL [facility] Sodium 133(L) 135 - 145 mmol/L [facility] mmol/L [facility] Carbon Dioxide 28 22 - 31 mmol/L [facility] Anion Gap 9 5 - 15 mmol/L [facility] Calcium 8.5 8.5 - 10.5 mg/dL [facility] Est Glomerular Filtration Rate 44(L) >=60 mL/min/1. 73 m?? [facility] Comment: The eGFR was calculated using the CKD-EPI equation. As with all creatinine based estimates of kidney function, eGFR values calculated with the CKD-EPI equation are not accurate in patients with acute kidney failure, extremes of body mass or the acutely ill. [email or web address] eGFR 51(L) >=60 mL/min/1. 73 m?? [facility] Comment: The eGFR was calculated using the CKD-EPI equation. As with all creatinine based estimates of kidney function, eGFR values calculated with the CKD-EPI equation are not accurate in patients with acute kidney failure, extremes of body mass or the acutely ill. [email or web address] Blood specimen (specimen) 02/09/2019 3:55 AM EDT 02/09/2019 4:09 AM EDT Narrative Resulting Agency Comment Spec In Lab Danny Hicks MD CHEMISTRY ORDERABLES Performing Organization Address [facility] Co de Phone Number [facility] [place] [address] * POCT Glucose (02/08/2019 8:31 PM EDT) Glucose, POC 153 65 - 199 mg/dL [facility] Comment: Supplemental ranges: <140 mg/dL before meals <180 mg/dL all other times of the day Blood specimen (specimen) 02/08/2019 8:31 PM EDT 02/08/2019 8:31 PM EDT Danny Hicks MD POINT OF CARE TEST O RDERABLES Performing Organization Address [facility] Co de Phone Number [facility] [place] [address] * POCT Glucose (02/08/2019 4:04 PM EDT) Glucose, POC 198 65 - 199 mg/dL [facility] Comment: Supplemental ranges: <140 mg/dL before meals <180 mg/dL all other times of the day Blood specimen (specimen) 02/08/2019 4:04 PM EDT 02/08/2019 4:04 PM EDT Trena Stoddard MD POINT OF CARE TEST O RDERABLES Performing Organization Address [facility] Co de Phone Number [facility] [place] [address] * EKG 12 Lead (02/08/2019 3:18 PM EDT) Ventricular rate 71 BPM MUSE SYSTEM Atrial Rate 96 BPM MUSE SYSTEM P-R Interval 160 ms MUSE SYSTEM QRS Duration 108 ms MUSE SYSTEM Q-T Interval 402 ms MUSE SYSTEM QTC Calculated (Bezet) 436 ms MUSE SYSTEM Calculated P [place] 73 degrees MUSE SYSTEM Calculated R [place] -63 degrees MUSE SYSTEM Calculated T [place] 10 degrees MUSE SYSTEM INTERPRETATION Sinus rhythm with frequent Premature supraventricular complexes Left anterior fascicular block T wave abnormality, consider inferior ischemia Abnormal ECG When compared with ECG of 07-FEB-2019 06:40, No significant change was found Confirmed by MD Yoselin, Memo ([id number]) on 02/09/2019 1:03:56 PM MUSE SYSTEM 02/08/2019 3:18 PM EDT 02/09/2019 1:03 PM EDT Danny Hicks MD ECG ORDERABLES Performing Organization Address City/[facility]/ZIP Co de Phone Number MUSE SYSTEM * C. Difficile Screen (02/08/2019 1:31 PM EDT) C Diff Interp Negative Negative [facility] Comment: C. diff ??Negative [...] AL ORDERABLES Performing Organization Address [facility] Co de Phone Number [facility] [place] [address] * POCT Glucose (02/08/2019 12:07 PM EDT) Glucose, POC 197 65 - 199 mg/dL [facility] Comment: Supplemental ranges: <140 mg/dL before meals <180 mg/dL all other times of the day Blood specimen (specimen) 02/08/2019 12:07 PM EDT 02/08/2019 12:07 PM EDT Trena Stoddard MD POINT OF CARE TEST O RDERABLES Performing Organization Address [facility] Co de Phone Number [facility] [place] [address] * POCT Glucose (02/08/2019 8:19 AM EDT) Pathologist [facility] Glucose, POC 123 65 - 199 mg/dL [facility] Comment: Supplemental ranges: <140 mg/dL before meals <180 mg/dL all other times of the day Blood specimen (specimen) 02/08/2019 8:19 AM EDT 02/08/2019 8:19 AM EDT Trena Stoddard MD POINT OF CARE TEST O RDERABLES [facility] [place] [address] * (ABNORMAL) Differential, Automated (02/08/2019 12:20 AM EDT) [facility] Neutrophil % 84.1 % [facility] Neutrophil Absolute 10.28(H) 1.70 - 6.10 x10(3)/mc L [facility] Lymph % 4.1 % [facility] Lymphocytes Abs 0.5(L) 0.9 - 3.2 x10(3)/mc L [facility] Monocyte % 11.2 % [facility] Monocyte Abs 1.4(H) 0.3 - 0.9 x10(3)/mc L [facility] Eos % 0.0 % [facility] Eosinophils Abs 0.0 0.0 - 0.4 x10(3)/mc L [facility] Basophil % 0.1 % [facility] Baso Absolute 0.0 0.0 - 0.1 x10(3)/mc L [facility] Immature Gran % 0.50 % [facility] Comment: Immature granulocytes(IG's)percentage and absolute count will include metamyelocytes, myelocytes, and promyelocytes. Blood smears from CBCs yielding IG's will be scanned manually for concordance. If this scan disagrees with the automated IG or if promyelocytes are noted, a manual differential will be performed. Immature Gran Absolute 0.06(H) 0.00 - 0.04 x10(3)/mc L [facility] Blood specimen (specimen) 02/08/2019 12:20 AM EDT 02/08/2019 1:08 AM EDT Narrative Resulting Agency Comment Spec In Lab Danny Hicks MD HEMATOLOGY ORDERABLE S [facility] [place] [address] * (ABNORMAL) Hemogram (02/08/2019 12:20 AM EDT) White Blood Cell 12.2(H) 4.0 - 9.5 x10(3)/[facility] Red Blood Cell 4.25(L) 4.58 - 5.54 x10(6)/[facility] Hemoglobin 13.2(L) 13.7 - 16.5 gm/dL [facility] Hematocrit 38.0(L) 40.5 - 48.5 % [facility] Mean Cell Volume 89.4 82.9 - 93.1 fL [facility] Mean Cell Hemoglobin 31.1 27.5 - 32.1 pg [facility] Mean Cell Hemoglobin Concentration 34.7 32.0 - 35.7 gm/dL [facility] Platelet 200 145 - 357 x10(3)/[facility] RDW Standard Deviation 44.3 36.0 - 45.0 [facility] RDW coefficient of variation 13.7 11.4 - 13.8 % [facility] Mean Platelet Volume 9.8 7.6 - 12.9 [facility] NRBC% auto 0.0 % [facility] NRBC Absolute 0.000 0.000 - 0.000 x10(3)/[facility] Blood specimen (specimen) 02/08/2019 12:20 AM EDT 02/08/2019 1:08 AM EDT Narrative Resulting Agency Comment Spec In Lab Danny Hicks MD HEMATOLOGY ORDERABLE S [facility] [place] [address] * (ABNORMAL) Basic Metabolic Panel (non-fasting) (02/08/2019 12:20 AM EDT) Glucose 171 65 - 199 mg/dL [facility] Comment:Diabetes: >=200 mg/d L plus symptoms Blood Urea Nitrogen 28(H) 10 - 20 mg/dL [facility] Creatinine 1.70(H) 0.80 - 1.50 mg/dL [facility] Sodium 132(L) 135 - 145 mmol/L [facility] Potassium 3.3(L) 3.5 - 5.0 mmol/L [facility] Comment: result rechecked- Please [...] mmol/L [facility] Anion Gap 12 5 - 15 mmol/L [facility] Calcium 8.2(L) 8.5 - 10.5 mg/dL [facility] Est Glomerular Filtration Rate 40(L) >=60 mL/min/1. 73 m?? [facility] Comment: The eGFR was calculated using the CKD-EPI equation. As with all creatinine based estimates of kidney function, eGFR values calculated with the CKD-EPI equation are not accurate in patients with acute kidney failure, extremes of body mass or the acutely ill. [email or web address] eGFR 46(L) >=60 mL/min/1. 73 m?? [facility] Comment: The eGFR was calculated using the CKD-EPI equation. As with all creatinine based estimates of kidney function, eGFR values calculated with the CKD-EPI equation are not accurate in patients with acute kidney failure, extremes of body mass or the acutely ill. [email or web address] Blood specimen (specimen) 02/08/2019 12:20 AM EDT 02/08/2019 1:08 AM EDT Narrative Resulting Agency Comment Spec In Lab Danny Hicks MD CHEMISTRY ORDERABLES Performing Organization Address [facility] [facility] Co de Phone Number [facility] [place] [address] * POCT Glucose (02/07/2019 10:06 PM EDT) Glucose, POC 168 65 - 199 mg/dL [facility] Comment: Supplemental ranges: <140 mg/dL before meals <180 mg/dL all other times of the day Blood specimen (specimen) 02/07/2019 10:06 PM EDT 02/07/2019 10:06 PM EDT Trena Stoddard MD POINT OF CARE TEST O RDERABLES Performing Organization Address [facility] Co de Phone Number [facility] [place] [address] * CT Abdomen & Pelvis wo Contrast [...] below. ? Electronically signed by: ARIEL Warner [facility] ([phone]), at 02/08/2019 1:45 AM Narrative 02/08/2019 1:45 [...] or ductal dilatation. Spleen: Normal. Adrenals: Normal. [place] left kidney: Atrophic with mild left hydronephrosis due to surgical clips at the left ureter for ureter ligation. Unchanged 4.4 cm simple cyst arising from the left lower pole. [place] right kidney: Atrophic. No hydronephrosis. Transplant kidney: [...] or ductal dilatation. Spleen: Normal. Adrenals: Normal. [place] left kidney: Atrophic with mild left hydronephrosis due to surgicalclips at the left ureter for ureter ligation. Unchanged 4.4 cm simple cystarising from the left lower pole. [place] right kidney: Atrophic. No hydronephrosis. Transplant kidney: [...] number below. Electronically signed by: Franca Francisco [facility]([phone]), at 02/08/2019 1:45 AM Danny Hicks MD IMG CT ORDERABLES * POCT Glucose (02/07/2019 7:36 PM EDT) Glucose, POC 171 65 - 199 mg/dL [facility] Comment: Supplemental ranges: <140 mg/dL before meals <180 mg/dL all other times of the day Blood specimen (specimen) 02/07/2019 7:36 PM EDT 02/07/2019 7:36 PM EDT Trena Stoddard MD POINT OF CARE TEST O RDERABLES Performing Organization Address [facility]/ZIP Co de Phone Number [facility] [place] [address] * Vancomycin, trough (02/07/2019 6:28 PM EDT) Vancomycin, Trough 14.0 mg/L [facility] Comment: Therapeutic range for complicated [...] Hicks MD CHEMISTRY ORDERABLES Performing Organization Address [facility]/ZIP Co de Phone Number [facility] [place] [address] * POCT Glucose (02/07/2019 4:31 PM EDT) Pathologist [facility] Glucose, POC 116 65 - 199 mg/dL [facility] Comment: Supplemental ranges: <140 mg/dL before meals <180 mg/dL all other times of the day Blood specimen (specimen) 02/07/2019 4:31 PM EDT 02/07/2019 4:31 PM EDT Trena Stoddard MD POINT OF CARE TEST O RDERABLES [facility] [place] [address] * ECHO LMTD W/O CONTRAST W LMTD SPEC DOPP COLOR DOPP (02/07/2019 3:47 PM EDT) Pathologist [facility] EF 40-50 HEARTLAB SYSTEM Anatomical Region Laterality Modality Other 02/07/2019 Narrative 02/07/2019 4:26 PM EDT Procedure: ?Transthoracic Echocardiogram Patient: ?TUBCRAIG FERRARAUEL P ? (Age): 1950(68y) Med Rec#: ? [id number] ?Sex: ?M ? [place] Loc: ? [facility] ?Ht / Wt: ??180(cm)/101(kg) Pt. Loc: ?ICU ? BSA: ?2.2 Study Date: ?? 02/07/2019 ?Pt. Type: Inpatient Tape: ? Referring: JACKY Reading: Ibrahima Celis ([id number]) World Designer: Quynh Calzada Diagnosis: *Enterococcus as the cause [...] E-wave Vmax ?1 ?m/sec ? MV deceleration sgsn086.5 ?msec ? MV A-wave Vmax ?0.3 ?m/sec [...] ? Mid-Inferior ?Hypokinetic ? Mid-Inferoseptal ?Hypokinetic ? [place]-Septal ? Hypokinetic ? [place]-Anterior ? Normal ? [place]-Lateral ?Hypokinetic ? [place]-Inferior ? Normal ? [place]-Tip ?Normal ? This report has been electronically signed by: Ibrahima Celis MD ? 02/07/2019 16:26:11 Images reviewed and interpretation verified [facility] Cardiac Ultrasound Laboratory Procedure Note Ibrahima Celis MD - 02/07/2019 Procedure: Transthoracic Echocardiogram Patient: MABLE Gomez DOB(Age): 1950(68y) Med Rec#: [id number] Sex: M [place] Loc: [facility] Ht / Wt: 180(cm)/101(kg) Pt. Loc: ICU BSA: 2.2 Study Date: 02/07/2019 Pt. Type: Inpatient Tape: Referring: JACKY Reading: Ibrahima Celis ([id number]) World Designer: Quynh Calzada Diagnosis: *Enterococcus as the cause [...] MV E-wave Vmax 1 m/sec MV deceleration [id number] msec MV A-wave Vmax 0.3 m/sec MV [...] Normal Mid-Posterolateral Hypokinetic Mid-Inferior Hypokinetic Mid-Inferoseptal Hypokinetic [place]-Septal Hypokinetic [place]-Anterior Normal [place]-Lateral Hypokinetic [place]-Inferior Normal [place]-Tip Normal This report has been electronically signed by: Ibrahima Celis MD 02/07/2019 16:26:11 Images reviewed and interpretation verified [facility] Cardiac Ultrasound Laboratory Danny Hicks MD ECHO [...] number below. Electronically signed by: Preeti Holloway [facility] ), at 02/07/2019 2:41 PM ? Preeti Holloway, Staff Physician Electronically Signed Final Report ?? 02/07/2019 02:48 pm Narrative 02/07/2019 2:48 PM EDT Transplant ?(Signed Final 02/07/2019 02:48 pm) PATIENT INFO: ID #: ? [id number] ? : [birth year] (68 yrs) Name: ? ETHEL BOLDEN ? Visit Date:02/07/2019 02:19 pm PERFORMED BY: Performed By: ? Karly Castillo RDMS Attending: ?Jewel GERBER, Preeti [place] Referred By: ?TRENA STODDARD Location: ? [place] SERVICE(S) PROVIDED: ??URTPL - Renal Transplant - Left - [id number] ?[id number] INDICATIONS: ??pt with hx of renal transplant [...] Final 02/07/2019 02:48pm) PATIENT INFO: ID #: [id number] : [birth year] (68 yrs) Name: ETHEL BOLDEN Visit Date:02/07/2019 02:19 pm PERFORMED BY: Performed By: Karly Castillo RDMS Attending: Preeti Holloway MD Referred By: TRENA STODDARD Location: [place] SERVICE(S) PROVIDED: URTPL - Renal Transplant - Left - [id number] INDICATIONS: pt with hx of renal transplant [...] number below. Electronically signed by: Preeti Holloway [facility] ), at 02/07/2019 2:41 PM Preeti Holloway, Staff Physician Electronically Signed Final Report 02/07/2019 02:48 pm Trena Stoddard MD IMG GEN ORDERABLE S * Blood culture (02/07/2019 12:55 PM EDT) Blood Culture No growth at 5 days. [facility] Blood specimen (specimen) STRUCTURE OF RIGHT FOOT / Unknown 02/07/2019 12:55 PM EDT 02/07/2019 1:57 PM EDT Narrative Resulting Agency Comment Spec In Lab Danny Hicks MD MICROBIOLOGY - BLOOD ORDERABLES [facility] [place] [address] * POCT Glucose (02/07/2019 12:13 PM EDT) Glucose, POC 151 65 - 199 mg/dL [facility] Comment: Supplemental ranges: <140 mg/dL before meals <180 mg/dL all other times of the day Blood specimen (specimen) 02/07/2019 12:13 PM EDT 02/07/2019 12:13 PM EDT Trena Stoddard MD POINT OF CARE TEST O RDERABLES [facility] [place] [address] * (ABNORMAL) Differential, Automated (02/07/2019 10:30 AM EDT) Pathologist [facility] Neutrophil % 87.2 % [facility] Neutrophil Absolute 12.33(H) 1.70 - 6.10 x10(3)/mc L [facility] Lymph % 3.3 % [facility] Lymphocytes Abs 0.5(L) 0.9 - 3.2 x10(3)/mc L [facility] Monocyte % 8.9 % [facility] Monocyte Abs 1.3(H) 0.3 - 0.9 x10(3)/mc L [facility] Eos % 0.0 % [facility] Eosinophils Abs 0.0 0.0 - 0.4 x10(3)/mc L [facility] Basophil % 0.2 % [facility] Baso Absolute 0.0 0.0 - 0.1 x10(3)/mc L [facility] Immature Gran % 0.40 % [facility] Comment: Immature granulocytes(IG's)percentage and absolute count will include metamyelocytes, myelocytes, and promyelocytes. Blood smears from CBCs yielding IG's will be scanned manually for concordance. If this scan disagrees with the automated IG or if promyelocytes are noted, a manual differential will be performed. Immature Gran Absolute 0.06(H) 0.00 - 0.04 x10(3)/ L [facility] Blood specimen (specimen) 02/07/2019 10:30 AM EDT 02/07/2019 10:40 AM EDT Narrative Resulting Agency Comment Spec In Lab Danny Hicks MD HEMATOLOGY ORDERABLE S [facility] [place] [address] * (ABNORMAL) Hemogram (02/07/2019 10:30 AM EDT) White Blood Cell 14.2(H) 4.0 - 9.5 x10(3)/[facility] Red Blood Cell 4.76 4.58 - 5.54 x10(6)/[facility] Hemoglobin 14.6 13.7 - 16.5 gm/dL [facility] Hematocrit 42.7 40.5 - 48.5 % [facility] Mean Cell Volume 89.7 82.9 - 93.1 [facility] Mean Cell Hemoglobin 30.7 27.5 - 32.1 pg [facility] Mean Cell Hemoglobin Concentration 34.2 32.0 - 35.7 gm/dL [facility] Platelet 245 145 - 357 x10(3)/[facility] RDW Standard Deviation 44.1 36.0 - 45.0 [facility] RDW coefficient of variation 13.4 11.4 - 13.8 % [facility] Mean Platelet Volume 9.2 7.6 - 12.9 [facility] NRBC% auto 0.0 % [facility] NRBC Absolute 0.000 0.000 - 0.000 x10(3)/ L [facility] Blood specimen (specimen) 02/07/2019 10:30 AM EDT 02/07/2019 10:40 AM EDT Narrative Resulting Agency Comment Spec In Lab Danny Hicks MD HEMATOLOGY ORDERABLE S Performing Organization Address City/[facility]/ZIP Co de Phone Number [facility] [place] [address] * IgG (02/07/2019 10:30 AM EDT) Immunoglobulin G 884 700 - 1,600 mg/dL [facility] Comment: Pediatric Reference Intervals obtained from the Caliper Reference Interval project. http://www.[employer].ca/caliperproject/index.html Blood specimen (specimen) 02/07/2019 10:30 AM EDT 02/07/2019 10:40 AM EDT Narrative Resulting Agency Comment Spec In Lab Danny Hicks MD CHEMISTRY ORDERABLES Performing Organization Address [facility] Co de Phone Number [facility] [place] [address] * (ABNORMAL) CD19 (02/07/2019 10:30 AM EDT) CD19% 13 6 - 23 % [facility] CD19 ABS 62(L) 99 - 473 /[facility] LABORATORY Comment: This assay is a dual platform determination. ??The PERCENTAGE of lymphocytes bearing the CD19 is determined using flow cytometry immunophenotyping. ??The ABSOULTE COUNT of [id number] is determined by multiplying the percentages by [...] White Blood Cell 14.2(H) 4.0 - 9.5 x10(3)/[facility] LABORATORY Lymph % 3.3 % [facility] Lymphocytes Abs 0.5(L) 0.9 - 3.2 x10(3)/[facility] LABORATORY Blood specimen (specimen) 02/07/2019 10:30 AM EDT 02/07/2019 10:40 AM EDT Narrative Resulting Agency Comment Spec In Lab Danny Hicks MD HEMATOLOGY ORDERABLE S [facility] [place] [address] * (ABNORMAL) CD4+8 (02/07/2019 10:30 AM EDT) CD3% 77 55 - 82 % [facility] CD3 ABS 361(L) 731 - 2,438 /[facility] LABORATORY CD4% 53 35 - 61 % [facility] CD4 ABS 250(L) 503 - 1,736 /[facility] LABORATORY CD8% 23 12 - 38 % [facility] CD8 ABS 108(L) 162 - 1,026 /[facility] LABORATORY Comment: This assay is a dual [...] CD4:8 Ratio 2.31 1.09 - 4.26 ratio [facility] White Blood Cell 14.2(H) 4.0 - 9.5 x10(3)/[facility] LABORATORY Lymph % 3.3 % [facility] Lymphocytes Abs 0.5(L) 0.9 - 3.2 x10(3)/[facility] LABORATORY Blood specimen (specimen) 02/07/2019 10:30 AM EDT 02/07/2019 10:40 AM EDT Narrative Resulting Agency Comment Spec In Lab Danny Hicks MD HEMATOLOGY ORDERABLE S Performing Organization Address City/[facility]/ZIP Co de Phone Number [facility] [place] [address] * POCT Glucose (02/07/2019 8:01 AM EDT) Glucose, POC 126 65 - 199 mg/dL [facility] Comment: Supplemental ranges: <140 mg/dL before meals <180 mg/dL all other times of the day Blood specimen (specimen) 02/07/2019 8:01 AM EDT 02/07/2019 8:01 AM EDT Trena Stoddard MD POINT OF CARE TEST O RDERABLES Performing Organization Address [facility] Co de Phone Number [facility] [place] [address] * EKG 12 Lead (02/07/2019 6:40 AM EDT) Ventricular rate 62 BPM MUSE SYSTEM Atrial Rate 52 BPM MUSE SYSTEM P-R Interval 184 ms MUSE SYSTEM QRS Duration 106 ms MUSE SYSTEM Q-T Interval 452 ms MUSE SYSTEM QTC Calculated (Bezet) 458 ms MUSE SYSTEM Calculated P [place] 52 degrees MUSE SYSTEM Calculated R [place] -76 degrees MUSE SYSTEM Calculated T [place] -27 degrees MUSE SYSTEM INTERPRETATION Sinus bradycardia with Premature supraventricular complexes Left anterior fascicular block T wave abnormality, consider inferior ischemia Abnormal ECG When compared with ECG of 06-FEB-2019 23:20, Premature ventricular complexes are no longer Present Confirmed by MD Yoselin, [facility] ([id number]) on 02/08/2019 9:38:37 AM MUSE SYSTEM 02/07/2019 6:40 AM EDT 02/08/2019 9:38 AM EDT Trena Stoddard MD ECG ORDERABLES Performing Organization Address [facility] Co de Phone Number MUSE SYSTEM * Tacrolimus level (02/07/2019 6:30 AM EDT) Tacrolimus 4.4 ng/mL [facility] Comment: Trough therapeutic: ??5-15 ng/mL Performed by ultra-performance liquid chromatography tandem mass spectrometry (UPLCMS/MS). This test was developed and its performance characteristics determined by [facility]. It has not been cleared or [...] Stoddard MD CHEMISTRY ORDERABLES Performing Organization Address [facility] Co de Phone Number [facility] [place] [address] * POCT Glucose (02/07/2019 3:27 AM EDT) Pathologist [facility] Glucose, POC 141 65 - 199 mg/dL [facility] Comment: Supplemental ranges: <140 mg/dL before meals <180 mg/dL all other times of the day Blood specimen (specimen) 02/07/2019 3:27 AM EDT 02/07/2019 3:27 AM EDT Alessandro Limon DO POINT OF CARE TEST O RDERABLES Performing Organization Address [facility] Co de Phone Number [facility] [place] [address] * Scan, Peripheral Blood (02/07/2019 1:50 AM EDT) Plat estimate Normal [facility] RBC Morphology Abnormal [facility] Ovalocytes 1-5 /HPF [facility] [place] Cells 1-5 /HPF [facility] Blood specimen (specimen) 02/07/2019 1:50 AM EDT 02/07/2019 1:57 AM EDT Narrative Resulting Agency Comment Spec In Lab Trena Sotddard MD HEMATOLOGY ORDERABLE S [facility] [place] [address] * (ABNORMAL) Differential, Automated (02/07/2019 1:50 AM EDT) Neutrophil % 84.1 % [facility] Neutrophil Absolute 16.55(H) 1.70 - 6.10 x10(3)/ L [facility] Lymph % 5.2 % [facility] Lymphocytes Abs 1.0 0.9 - 3.2 x10(3)/ L [facility] Monocyte % 10.0 % [facility] Monocyte Abs 2.0(H) 0.3 - 0.9 x10(3)/[facility]ORATORY Eos % 0.0 % [facility] Eosinophils Abs 0.0 0.0 - 0.4 x10(3)/[facility] LABORATORY Basophil % 0.2 % [facility] Baso Absolute 0.0 0.0 - 0.1 x10(3)/ L [facility] Immature Gran % 0.50 % [facility] Comment: Immature granulocytes(IG's)percentage and absolute count will include metamyelocytes, myelocytes, and promyelocytes. Blood smears from CBCs yielding IG's will be scanned manually for concordance. If this scan disagrees with the automated IG or if promyelocytes are noted, a manual differential will be performed. Immature Gran Absolute 0.10(H) 0.00 - 0.04 x10(3)/ L [facility] Blood specimen (specimen) 02/07/2019 1:50 AM EDT 02/07/2019 1:57 AM EDT Narrative Resulting Agency Comment Spec In Lab Trena Stoddard MD HEMATOLOGY ORDERABLE S [facility] [place] [address] * (ABNORMAL) Hemogram (02/07/2019 1:50 AM EDT) White Blood Cell 19.7(H) 4.0 - 9.5 x10(3)/mc L [facility] Red Blood Cell 5.08 4.58 - 5.54 x10(6)/mc L [facility] Hemoglobin 15.8 13.7 - 16.5 gm/dL [facility] Hematocrit 46.6 40.5 - 48.5 % [facility] Mean Cell Volume 91.7 82.9 - 93.1 fL [facility] Mean Cell Hemoglobin 31.1 27.5 - 32.1 pg [facility] Mean Cell Hemoglobin Concentration 33.9 32.0 - 35.7 gm/dL [facility] Platelet 260 145 - 357 x10(3)/[facility] LABORATORY RDW Standard Deviation 45.6(H) 36.0 - 45.0 fL [facility] RDW coefficient of variation 13.6 11.4 - 13.8 % [facility] Mean Platelet Volume 9.1 7.6 - 12.9 fL [facility] NRBC% auto 0.0 % [facility] NRBC Absolute 0.000 0.000 - 0.000 x10(3)/[facility] Blood specimen (specimen) 02/07/2019 1:50 AM EDT 02/07/2019 1:57 AM EDT Narrative Resulting Agency Comment Spec In Lab Trena Stoddard MD HEMATOLOGY ORDERABLE S [facility] [place] [address] * (ABNORMAL) Troponin (02/07/2019 1:50 AM EDT) Troponin-T 0.05(H) 0.00 - 0.00 ng/mL [facility] Comment: The 99th percentile [...] ischemia ?? New or presumed new significant GP-sxpgbwl-C wave (ST-T) changes or new left bundle [...] additional sample may be indicated. Reference: Third Fence Definition of Myocardial Infarction. Journal of the [place] [employer] 2012;60:1581-98 Blood specimen (specimen) 02/07/2019 1:50 AM EDT 02/07/2019 1:57 AM EDT Narrative Resulting Agency Comment Spec In Lab Trena Stoddard MD CHEMISTRY ORDERABLES Performing Organization Address [facility] Co de Phone Number [facility] [place] [address] * (ABNORMAL) Magnesium (02/07/2019 1:50 AM EDT) Magnesium 0.59(L) 0.69 - 1.07 mmol/L [facility] Blood specimen (specimen) 02/07/2019 1:50 AM EDT 02/07/2019 1:57 AM EDT Narrative Resulting Agency Comment Spec In Lab Trena Stoddard MD CHEMISTRY ORDERABLES Performing Organization Address [facility] Co de Phone Number [facility] [place] [address] * (ABNORMAL) Basic Metabolic Panel (non-fasting) (02/07/2019 1:50 AM EDT) Glucose 145 65 - 199 mg/dL [facility] Comment:Diabetes: >=200 mg/d L plus symptoms Blood Urea Nitrogen 26(H) 10 - 20 mg/dL [facility] Creatinine 1.82(H) 0.80 - 1.50 mg/dL [facility] Sodium 133(L) 135 - 145 mmol/L [facility] Potassium 4.7 3.5 - 5.0 mmol/L [facility] Comment: result rechecked- Please note: ??Patients with WBC >100,000 may have falsely elevated Potassium levels. ??For accurate Potassium quantification in these patients send serum separator tube (gold top) for subsequent determinations. ??Contact the Clinical Chemistry Laboratory if there are any questions. Chloride 94(L) 98 - 107 mmol/L [facility] Carbon Dioxide 25 22 - 31 mmol/L [facility] Anion Gap 14 5 - 15 mmol/L [facility] Calcium 9.0 8.5 - 10.5 mg/dL [facility] Est Glomerular Filtration Rate 37(L) >=60 mL/min/1. 73 m?? [facility] Comment: The eGFR was calculated using the CKD-EPI equation. As with all creatinine based estimates of kidney function, eGFR values calculated with the CKD-EPI equation are not accurate in patients with acute kidney failure, extremes of body mass or the acutely ill. [email or web address]Enk[facility] eGFR 43(L) >=60 mL/min/1. 73 m?? [facility] Comment: The eGFR was calculated using the CKD-EPI equation. As with all creatinine based estimates of kidney function, eGFR values calculated with the CKD-EPI equation are not accurate in patients with acute kidney failure, extremes of body mass or the acutely ill. [email or web address] Blood specimen (specimen) 02/07/2019 1:50 AM EDT 02/07/2019 1:57 AM EDT Narrative Resulting Agency Comment Spec In Lab Trena Stoddard MD CHEMISTRY ORDERABLES [facility] [place] [address] * Smear Review Report (02/07/2019 1:50 AM EDT) Smear Review Report [id number] ? Location: ICUS; IC06; A The signing pathologist has (i) examined the relevant preparation(s) for the specimen(s) and (ii) rendered or confirmed the diagnosis(es). . ? Smear Review DIAGNOSIS PERIPHERAL BLOOD, SMEAR: Absolute neutrophilia and monocytosis (see discussion) Electronically signed by: ??Shin Murray MD Verified: ??02/07/2019 ?Hematopathologist Performed at: ??-[facility] Dept. of Pathology, [place], [place] DISCUSSION The leukocytosis and morphologic findings [...] Ledipasvir-sofosbuvir, DM, HTN, and kidney transplant (09/16/2015). [facility] 02/07/2019 1:50 AM EDT Trena Stoddard MD HEMATOLOGY ORDERABLE S Performing Organization Address [facility]/ZIP Co de Phone Number [facility] [place] [address] * Urea nitrogen, urine, random (02/07/2019 12:56 AM EDT) Urea Nitrogen, Urine 831 mg/dL [facility] Urine specimen (specimen) Urine / Unknown 02/07/2019 12:56 AM EDT 02/07/2019 6:10 AM EDT Narrative Resulting Agency Comment Spec In Lab Trena Stoddard MD URINE ORDERABLES Performing Organization Address [facility] Co de Phone Number [facility] [place] [address] * Legionella Urinary Antigen (02/07/2019 12:56 AM EDT) Legionella Urinary Antigen Negative Negative [facility] Comment: A negative Legionella Urinary Antigen [...] - GENER AL ORDERABLES Performing Organization Address [facility]/ZIP Co de Phone Number [facility] [place] [address] * (ABNORMAL) Urine culture (02/07/2019 12:55 AM EDT) Urine Culture 1,000-9,000 cfu/ml Enterococcus faecalis(A) [facility] Organism Enterococcus faecalis(A) [facility] Urine specimen obtained [...] - GENER AL ORDERABLES Performing Organization Address City/[facility]/ZIP Co de Phone Number [facility] [place] [address] * (ABNORMAL) Urinalysis Microscopic Exam (02/07/2019 12:55 AM EDT) RBC, Urine 9(H) 0 - 3 /HPF [facility] WBC, Urine 22(H) 0 - 3 /HPF [facility] Bacteria, Urine Rare(A) None /HPF [facility] Granular Casts, Urine 2(H) <=0 /LPF [facility] Urine specimen obtained via straight catheter (specimen) 02/07/2019 12:55 AM EDT 02/07/2019 1:31 AM EDT Narrative Resulting Agency Comment Spec In Lab Trena Stoddard MD URINE ORDERABLES Performing Organization Address City/[facility]/ZIP Co de Phone Number [facility] [place] [address] * Creatinine, urine, random (02/07/2019 12:55 AM EDT) Creatinine, Urine 174 mg/dL [facility] Urine specimen (specimen) 02/07/2019 12:55 AM EDT 02/07/2019 1:31 AM EDT Narrative Resulting Agency Comment Spec In Lab Trena Stoddard MD URINE ORDERABLES Performing Organization Address [facility] Co de Phone Number [facility] [place] [address] * Electrolytes, urine, random (02/07/2019 12:55 AM EDT) Sodium, Urine 28 mmol/L [facility] Potassium, Urine 78 mmol/L [facility] Chloride, Urine 33 mmol/L [facility] Urine specimen (specimen) 02/07/2019 12:55 AM EDT 02/07/2019 1:31 AM EDT Narrative Resulting Agency Comment Spec In Lab Trena Stoddard MD URINE ORDERABLES Performing Organization Address [facility] Co de Phone Number [facility] [place] [address] * (ABNORMAL) Urinalysis with reflex Culture (02/07/2019 [...] [facility] pH, Urn (dipstick) 5.0 5.0 - 8.0 [facility] Blood, Urine Dipstick Negative Negative mg/dL [facility] Ketone, Urine Dipstick Negative Negative mg/dL [facility] Nitrite, Urine Dipstick Negative Negative [facility] Leukocytes, Urine Dipstick Negative Negative [facility] LABORATORY Appearance, Urine Dipstick Clear Clear [facility] Specific [place] Urine Automated 1.023 1.002 - 1.030 [facility] Color, Urine Dipstick Yellow Yellow [facility] Reflex to Culture Yes [facility] Urine specimen obtained via straight catheter (specimen) 02/07/2019 12:55 AM EDT 02/07/2019 1:31 AM EDT Narrative Resulting Agency Comment Spec In Lab Trena Stoddard MD URINE ORDERABLES Performing Organization Address [facility] Co de Phone Number [facility] [place] [address] * POCT Glucose (02/07/2019 12:27 AM EDT) Glucose, POC 183 65 - 199 mg/dL [facility] Comment: Supplemental ranges: <140 mg/dL before meals <180 mg/dL all other times of the day Blood specimen (specimen) 02/07/2019 12:27 AM EDT 02/07/2019 12:27 AM EDT Alessandro Limon DO POINT OF CARE TEST O RDERABLES Performing Organization Address [facility] Co de Phone Number [facility] [place] [address] * XR Chest One View (02/06/2019 11:52 PM EDT) Anatomical Region Laterality Modality Chest N/A Digital Radiogra phy Impressions 02/07/2019 12:02 AM EDT Cardiomegaly with pulmonary edema Thank you for letting us participate in the care of this patient. For questions regarding this report, please contact the number below. ? Electronically signed by: ARIEL Warner [facility] ([phone]), at 02/07/2019 12:02 AM Narrative 02/07/2019 12:02 [...] number below. Electronically signed by: ARIEL Warner [facility]([phone]), at 02/07/2019 12:02 AM Trena Stoddard MD IMG DX ORDERABLES * EKG 12 Lead (02/06/2019 11:20 PM EDT) Ventricular rate 63 BPM MUSE SYSTEM Atrial Rate 90 BPM MUSE SYSTEM P-R Interval 192 ms MUSE SYSTEM QRS Duration 106 ms MUSE SYSTEM Q-T Interval 484 ms MUSE SYSTEM QTC Calculated (Bezet) 495 ms MUSE SYSTEM Calculated R [place] -55 degrees MUSE SYSTEM Calculated T [place] -61 degrees MUSE SYSTEM INTERPRETATION Sinus rhythm with Premature atrial complexes Premature ventricular complexes Left anterior fascicular block Nonspecific T wave abnormality Prolonged QT Abnormal ECG When compared with ECG of 02-FEB-2019 19:26, T wave inversion now evident in Lateral leads Confirmed by MD Yoselin, Memo ([id number]) on 02/07/2019 10:22:06 AM MUSE SYSTEM 02/06/2019 11:2 0 PM EDT 02/07/2019 10:22 AM EDT Trena Stoddard MD ECG ORDERABLES MUSE SYSTEM * (ABNORMAL) Troponin (02/06/2019 11:10 PM EDT) Troponin-T 0.05(H) 0.00 - 0.00 ng/mL [facility] Comment: The 99th percentile [...] ischemia ?? New or presumed new significant BD-[id number]-J wave (ST-T) changes or new left bundle [...] additional sample may be indicated. Reference: Third Fence Definition of Myocardial Infarction. Journal of the [place] [employer] 2012;60:1581-98 Blood specimen (specimen) 02/06/2019 11:10 PM EDT 02/06/2019 11:21 PM EDT Narrative Resulting Agency Comment Spec In Lab Trena Stoddard MD CHEMISTRY ORDERABLES [facility] [place] [address] * (ABNORMAL) Differential, Automated (02/06/2019 11:10 PM EDT) Neutrophil % 86.6 % [facility] Neutrophil Absolute 12.13(H) 1.70 - 6.10 x10(3)/mc L [facility] Lymph % 3.9 % [facility] Lymphocytes Abs 0.5(L) 0.9 - 3.2 x10(3)/mc L [facility] Monocyte % 8.9 % [facility] Monocyte Abs 1.2(H) 0.3 - 0.9 x10(3)/mc L [facility] Eos % 0.0 % [facility] Eosinophils Abs 0.0 0.0 - 0.4 x10(3)/[facility] LABORATORY Basophil % 0.2 % [facility] Baso Absolute 0.0 0.0 - 0.1 x10(3)/mc L [facility] Immature Gran % 0.40 % [facility] Comment: Immature granulocytes(IG's)percentage and absolute count will include metamyelocytes, myelocytes, and promyelocytes. Blood smears from CBCs yielding IG's will be scanned manually for concordance. If this scan disagrees with the automated IG or if promyelocytes are noted, a manual differential will be performed. Immature Gran Absolute 0.06(H) 0.00 - 0.04 x10(3)/mc L [facility] Blood specimen (specimen) 02/06/2019 11:10 PM EDT 02/06/2019 11:21 PM EDT Narrative Resulting Agency Comment Spec In Lab Trena Stoddard MD HEMATOLOGY ORDERABLE S [facility] [place] [address] * (ABNORMAL) Hemogram (02/06/2019 11:10 PM EDT) White Blood Cell 14.0(H) 4.0 - 9.5 x10(3)/ L [facility] Red Blood Cell 4.51(L) 4.58 - 5.54 x10(6)/mc L [facility] Hemoglobin 13.9 13.7 - 16.5 gm/dL [facility] Hematocrit 40.5 40.5 - 48.5 % [facility] Mean Cell Volume 89.8 82.9 - 93.1 fL [facility] Mean Cell Hemoglobin 30.8 27.5 - 32.1 pg [facility] Mean Cell Hemoglobin Concentration 34.3 32.0 - 35.7 gm/dL [facility] Platelet 238 145 - 357 x10(3)/[facility] LABORATORY RDW Standard Deviation 44.2 36.0 - 45.0 [facility]ATORY RDW coefficient of variation 13.6 11.4 - 13.8 % [facility] Mean Platelet Volume 9.4 7.6 - 12.9 [facility] LAB[facility]ATORY NRBC% auto 0.0 % [facility] NRBC Absolute 0.000 0.000 - 0.000 x10(3)/[facility]ATORY Blood specimen (specimen) 02/06/2019 11:10 PM EDT 02/06/2019 11:21 PM EDT Narrative Resulting Agency Comment Spec In Lab Trena Stoddard MD HEMATOLOGY ORDERABLE S [facility] [place] [address] * Lactate, whole blood, send to lab (Leb/CGP) (02/06/2019 11:10 PM EDT) Pathologist [facility] Lactate WB 1.8 0.5 - 2.2 mmol/L [facility] Blood specimen (specimen) 02/06/2019 11:10 PM EDT 02/06/2019 11:18 PM EDT Narrative Resulting Agency Comment Spec In Lab Trena Stoddard MD CHEMISTRY ORDERABLES Performing Organization Address [facility] Co de Phone Number [facility] [place] [address] * Blood culture (02/06/2019 11:10 PM EDT) Blood Culture No growth at 5 days. [facility] Blood specimen (specimen) STRUCTURE OF RIGHT UPPER LIMB / Unknown 02/06/2019 11:10 PM EDT 02/07/2019 12:08 AM EDT Narrative Resulting Agency Comment Spec In Lab Trena Stoddard MD MICROBIOLOGY - BLOOD ORDERABLES Performing Organization Address [facility] Co de Phone Number [facility] [place] [address] * (ABNORMAL) Prothrombin Time (02/06/2019 11:10 PM EDT) Prothrombin Time 23.5(H) 9.4 - 12.5 sec [facility] International Normalization Ratio 2.0 [facility] Comment: An INR [...] MD HEMATOLOGY ORDERABLE S Performing Organization Address [facility] Co de Phone Number [facility] [place] [address] * (ABNORMAL) Hepatic Function Panel (02/06/2019 11:10 PM EDT) Protein, Total 6.6 6.1 - 8.0 gm/dL [facility] Albumin 3.3 3.2 - 5.2 gm/dL [facility] Aspartate Aminotransferase 17 0 - 39 unit/L [facility] Alanine Aminotransferase 15 0 - 55 unit/L [facility] Alkaline Phosphatase 47 40 - 130 unit/L [facility] Bilirubin, Total 2.2(H) 0.2 - 1.3 mg/dL [facility] Bilirubin, Direct 0.3 0.0 - 0.3 mg/dL [facility] Blood specimen (specimen) 02/06/2019 11:10 PM EDT 02/06/2019 11:21 PM EDT Narrative Resulting Agency Comment Spec In Lab Trena Stoddard MD CHEMISTRY ORDERABLES Performing Organization Address [facility]/ZIP Co de Phone Number [facility] [place] [address] * (ABNORMAL) Magnesium (02/06/2019 11:10 PM EDT) [facility] Magnesium 0.52(L) 0.69 - 1.07 mmol/L [facility] Blood specimen (specimen) 02/06/2019 11:10 PM EDT 02/06/2019 11:21 PM EDT Narrative Resulting Agency Comment Spec In Lab Trena Stoddard MD CHEMISTRY ORDERABLES [facility] [place] [address] * (ABNORMAL) Basic Metabolic Panel (non-fasting) (02/06/2019 11:10 PM EDT) [facility] Glucose 190 65 - 199 mg/dL [facility] Comment:Diabetes: >=200 mg/d L plus symptoms Blood Urea Nitrogen 26(H) 10 - 20 mg/dL [facility] Creatinine 1.68(H) 0.80 - 1.50 mg/dL [facility] Sodium 135 135 - 145 mmol/L [facility] Potassium 3.6 3.5 - 5.0 mmol/L [facility] Comment: Please note: ??Patients with WBC >100,000 may have falsely elevated Potassium levels. ??For accurate Potassium quantification in these patients send serum separator tube (gold top) for subsequent determinations. ??Contact the Clinical Chemistry Laboratory if there are any questions. Chloride 98 98 - 107 mmol/L [facility] Carbon Dioxide 24 22 - 31 mmol/L [facility] Anion Gap 13 5 - 15 mmol/L [facility] Calcium 8.3(L) 8.5 - 10.5 mg/dL [facility] Est Glomerular Filtration Rate 41(L) >=60 mL/min/1. 73 m?? [facility] Comment: The eGFR was calculated using the CKD-EPI equation. As with all creatinine based estimates of kidney function, eGFR values calculated with the CKD-EPI equation are not accurate in patients with acute kidney failure, extremes of body mass or the acutely ill. [email or web address] OKEENEnkf eGFR 47(L) >=60 mL/min/1. 73 m?? [facility] Comment: The eGFR was calculated using the CKD-EPI equation. As with all creatinine based estimates of kidney function, eGFR values calculated with the CKD-EPI equation are not accurate in patients with acute kidney failure, extremes of body mass or the acutely ill. [email or web address] Blood specimen (specimen) 02/06/2019 11:10 PM EDT 02/06/2019 11:21 PM EDT Narrative Resulting Agency Comment Spec In Lab Trena Stoddard MD CHEMISTRY ORDERABLES [facility] [place] [address] * Blood culture (02/06/2019 11:00 PM EDT) Blood Culture No growth at 5 days. [facility] Blood specimen (specimen) STRUCTURE OF RIGHT HAND / Unknown 02/06/2019 11:00 PM EDT 02/07/2019 12:08 AM EDT Narrative Resulting Agency Comment Spec In Lab Trena Stoddard MD MICROBIOLOGY - BLOOD ORDERABLES [facility] [place] [address] documented in this encounter Visit Diagnoses Diagnosis [...] dose on Thu02/07/19 at 0900, Until Discontinued, Fox teeth, Routine Given 02/10/2019 9:09 PM EDT [...] dose on Thu02/07/19 at 0900, Until Discontinued, [place] teeth, Routine 0857 (Given - Provider: Arely [...] RN) 0855 (Given - Provider: Ethel Darling, RN) 0910 (Given - Provider: Ethel Darling, RN) furosemide (LASIX) injection 20 mg (COMPLETED) [...] Arely Wang RN)1630 (Not Given - Provider: rAely Wang RN - Reason: Order parameters not met)2144 (Given - Provider: Josefina English, JADEN) 0655 (Not Given - Provider: Josefina English, JADEN - Reason: Order parameters not met)1118 (Given [...] Routine 1233 (Given - Provider: Ethel Darling RN)210 (Given - Provider: Sohan Smith RN) 09 (Given - Provider: Ethel Darling RN) sodium chloride 0.9 % (flush) flush 5 mL 5 mL, Intravenous, 2 TIMES DAILY, First dose on 02/06/19 at 2315, Until Discontinued, Routine 0858 (Given - Provider: Arely Wang RN)2151 (Given - Provider: Josefina English RN) 0856 (Given - Provider: Ethel Darling, JADEN)2109 (Given - Provider: Sohan Smith RN) 0900 [...] from all sources in 24 hours., Routine 2113 (Given - Provider: Sohan Smith, RN) 419 [...] Routine documented in this encounter Care Teams Washroom Cleaner Relationship Specialty Start Date End Date Urbano Denis DO [address] [place] [address] PCP - General 09/03/12 03/17/22 Ruchi Valles RN Nurse Clinic Transplant Surgery 07/30/15 documented as of this encounter
--- OUTSIDE RECORDS SUMMARY | 2024-05-16 17:23 | XMS_ITS | Encounter Summary ---
Author Organization [facility] Address [facility] [place] [address] Care Team Providers Care Software Engineering Specialist Name Role Phone Adeel Urbano KIRBY Primary Care Provider + [phone] Reason for Visit * Reason Comments Hypertension Atrial Fibrillation Ekg Encounter Details Date Type Department Care Team (Late st Contact Info) Description 03/31/2019 2:00 PM EDT Office Visit Cardiology at [address] [phone] [facility] [place] [address] Atrial fibrillation with RVR - had flutter [...] from the original note were not included. [facility] [place] [address] CARDIOLOGY/ VASCULAR OUTPATIENT NOTE Cody Denis DO SUBJECTIVE: S/p kidney transplant in 2015. Last seen in cardiology in 12/2015. The patient did not have a significant cardiac history but was admitted to [facility] [...] of fluid loss. ??Denies any??fevers or chills. ??[place] bloated in abdomen since yesterday.?No pain with [...] was also started on apixaban due to [id number] score of 6, with no complications of [...] night,and patient reported a history of ARIELLA. [place] Sleepiness Scale was notable for increased sleepiness; [...] Vitamin D deficiency ??? 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 CAH [...] 11:00 AM EST Visit (TeleHealth) Cardiology at [address] [phone] [facility] [place] [address] 07/14/2024 10:00 AM EST Hospital Encounter Non-Invasive [place] [phone] Arrived documented as of this encounter Goals [...] (Bezet) 444 ms MUSE SYSTEM Calculated R [place] -61 degrees MUSE SYSTEM Calculated T [place] 39 degrees MUSE SYSTEM INTERPRETATION Sinus rhythm [...] disorders documented in this encounter Care Teams Software Engineering Specialist Relationship Specialty Start Date End Date Urbano Denis DO [address] [place] [address] [address] [place] [address] PCP - General 09/03/12 03/17/22 Ruchi Valles RN Nurse Clinic Transplant Surgery 07/30/15 documented as of this encounter
--- OUTSIDE RECORDS SUMMARY | 2024-05-16 17:23 | XMS_ITS | Encounter Summary ---
Author Organization [facility]ly [facility] Address [facility] [place] [address] Care Team Providers Care Beet End Supervisor Name Role Phone AdeelUrbano Primary Care Provider [phone] Reason for Visit * Reason Onset Date Comments Other 02/10/2019 Encounter Details Date Type Department Care Team (Late st Contact Info) Description 02/10/2019 [place] [phone] Zehra Craig Other Social History Tobacco Use [...] 11:00 AM EST Visit (TeleHealth) Cardiology at [address] [phone] Byron Brown MD [facility] [place] [address] 07/14/2024 10:00 AM EST Hospital Encounter Non[place] [address] Arrived documented as of this [...] on filedocumented in this encounter Care Teams Beet End Supervisor Relationship Specialty Start Date End Date Urbano Denis DO [address] [place] [address] PCP - General 09/03/12 03/17/22 Ruchi Valles RN Nurse Clinic Transplant Surgery 07/30/15 documented as of this encounter
--- OUTSIDE RECORDS SUMMARY | 2024-05-16 17:23 | XMS_ITS | Encounter Summary ---
[place] [address] Care Team Providers Care Rail Signal Designer Name Role Phone Urbano Denis DO Primary Care Provider [phone] Reason for Referral * Physical Therapy (Routine) - Specialty Diagnoses / Procedures Referred By Humberto flor Referred To Contact Diagnoses Left leg pain [place] [address] Referral ID Status Reason Start Date Expiration Date V isits Requested Visits Authorized [id number] Evaluate and Treat 05/30/2019 11/26/2019 12 12 Reason for Visit * Reason Comments Back Pain * Consultation (Routine) - Closed Specialty Diagnoses / Procedures Referred By Humberto flor Referred To Contact [facility] Sp[facility] Center Diagnoses Spinal stenosis, site unspecified SPINE: Lumbar stenosis/MRI (L) 04/28/19 in e- Sonu Vanegas MD [address] [place] [address] [facility] [place] [address] Referral ID Status Reason Start Date Expiration Date Visits Re quested Visits Authorized [id number] Closed 05/10/2019 05/09/2020 1 1 Encounter Details Date Type Department Care Team (Late st Contact Info) Description 05/30/2019 9:00 AM EST Office Visit [facility] Sp[facility] Center at [facility] [place] [address] Jay Chakraborty, LABORER CHEESEMAKING [facility] [place] [address] Left leg pain Social History Tobacco Use [...] small bouts of incontinence. 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 Past medical history is extensive and [...] that we would need to get his tubing tester's approval to holdapixaban prior to injection and [...] EST TH Visit (TeleHealth) Cardiology at [address] [phone] Byron Brown MD [facility] [place] [address] 07/14/2024 10:00 AM EST Hospital Encounter Non-[place]vasive [place] [phone] Arrived Scheduled Referrals Name Type Priority Associated [...] limb documented in this encounter Care Teams Rail Signal Designer Relationship Specialty Start Date End Date Urbano Denis DO [address] [place] [address] [address] [place] [address] PCP - General 09/03/12 03/17/22 Ruchi Valles RN Nurse Clinic Transplant Surgery 07/30/15 documented as of this encounter
--- OUTSIDE RECORDS SUMMARY | 2024-05-16 17:23 | XMS_ITS | Encounter Summary ---
Author Organization [facility] [place] [address] Care Team Providers Care Demand Inspector Name Role Phone Urbano Denis DO Primary Care Provider Encounter Details Date Type Department Care Team (Latest Contact Info) Description 03/11/2019 9:40 AM EDT Laboratory Appointment Lab [address] [place] [address] H/O kidney transplant Social History [...] EST TH Visit (TeleHealth) Cardiology at [address] [phone] Byron Brown MD [facility] [place] [address] 07/14/2024 10:00 AM EST Hospital Encounter Non-[place] [address] Arrived documented as of this [...] - 3 /HPF [facility] Urine specimen obtained by clean catch procedure (specimen) 03/11/2019 10:03 AM EDT 03/11/2019 10:08 AM EDT Narrative Resulting Agency Comment Spec In Lab Tal Eagle MD URINE ORDERABLES [facility] [place] [address] * (ABNORMAL) Urinalysis with reflex Culture (03/11/2019 10:03 AM EDT) Glucose, Urine Dipstick Negative Negative mg/dL [facility] Protein, Urine Dipstick 30(A) Negative mg/dL [facility] Bilirubin, Urine [...] HOSPITAL LABORATORY Leukocytes, Urine Dipstick Negative Negative [facility] Appearance, Urine Dipstick Clear Clear [facility] Specific [place] Urine Automated 1.011 1.002 - 1.030 [facility] Color, Urine Dipstick Yellow Yellow [facility] Reflex to Culture No [facility] Urine specimen obtained by clean catch procedure (specimen) 03/11/2019 10:03 AM EDT 03/11/2019 10:08 AM EDT Narrative Resulting Agency Comment Spec In Lab Tal Eagle MD URINE ORDERABLES Performing Organization Address City/[facility]/ZIP Co de Phone Number [facility] [place] [address] * (ABNORMAL) Protein/Creatinine Ratio, urine (03/11/2019 10:03 AM EDT) Creatinine, Urine 45 mg/dL [facility] Protein, Urine 31(H) 0 - 12 mg/dL [facility] Protein / Creatinine Ratio, Urine 0.7 ratio [facility] Urine specimen (specimen) 03/11/2019 10:03 AM EDT 03/11/2019 10:20 AM EDT Narrative Resulting Agency Comment Spec In Lab Tal Eagle MD URINE ORDERABLES Performing Organization Address City/[facility]/ZIP Co de Phone Number [facility] [place] [address] * Differential, Automated (03/11/2019 9:58 AM EDT) Neutrophil % 63.2 % [facility] Neutrophil Absolute 4.86 1.70 - 6.10 x10(3)/[facility] Lymph % 23.5 % [facility] Lymphocytes Abs 1.8 0.9 - 3.2 x10(3)/[facility] Monocyte % 7.4 % [facility] Monocyte Abs 0.6 0.3 - 0.9 x10(3)/[facility] Eos % 4.3 % [facility] Eosinophils Abs 0.3 0.0 - 0.4 x10(3)/[facility] Basophil % 1.2 % [facility] Baso Absolute 0.1 0.0 - 0.1 x10(3)/[facility] Immature Gran % 0.40 % [facility] Comment: Immature granulocytes(IG's)percentage and absolute count will include metamyelocytes, myelocytes, and promyelocytes. Blood smears from CBCs yielding IG's will be scanned manually for concordance. If this scan disagrees with the automated IG or if promyelocytes are noted, a manual differential will be performed. Immature Gran Absolute 0.03 0.00 - 0.04 x10(3)/[facility] Blood specimen (specimen) 03/11/2019 9:58 AM EDT 03/11/2019 10:23 AM EDT Narrative Resulting Agency Comment Spec In Lab Tal Eagle MD HEMATOLOGY ORDERA BLES [facility] [place] [address] * Hemogram (03/11/2019 9:58 AM EDT) White Blood Cell 7.7 4.0 - 9.5 x10(3)/[facility] Red Blood Cell 4.78 4.58 - 5.54 x10(6)/[facility] Hemoglobin 14.7 13.7 - 16.5 gm/dL [facility] Hematocrit 42.8 40.5 - 48.5 % [facility] Mean Cell Volume 89.5 82.9 - 93.1 fL [facility] Mean Cell Hemoglobin 30.8 27.5 - 32.1 pg [facility] Mean Cell Hemoglobin Concentration 34.3 32.0 - 35.7 gm/dL [facility] Platelet 251 145 - 357 x10(3)/[facility] RDW Standard Deviation 45.0 36.0 - 45.0 fL [facility] RDW coefficient of variation 13.6 11.4 - 13.8 % [facility] Mean Platelet Volume 10.1 7.6 - 12.9 fL [facility] NRBC% auto 0.0 % [facility] NRBC Absolute 0.000 0.000 - 0.000 x10(3)/[facility] Blood specimen (specimen) 03/11/2019 9:58 AM EDT 03/11/2019 10:23 AM EDT Narrative Resulting Agency Comment Spec In Lab Tal Eagle MD HEMATOLOGY ORDERA BLES Performing Organization Address [facility] de Phone Number [facility] [place] [address] * Reticulocyte Count (03/11/2019 9:58 AM EDT) Reticulocyte % 2.2 0.7 - 2.6 % [facility] Retic Abs # 0.110 0.030 - 0.120 x10(6)/[facility] Immature Retic% 14.4 0.0 - 15.6 % [facility] Reticulated Hgb 35.8 31.3 - 40.2 pg [facility] Blood specimen (specimen) 03/11/2019 9:58 AM EDT 03/11/2019 10:23 AM EDT Narrative Resulting Agency Comment Spec In Lab Tal Eagle MD HEMATOLOGY ORDERA BLES Performing Organization Address [facility] Co de Phone Number [facility] [place] [address] * (ABNORMAL) Comprehensive metabolic panel (non-fasting) (03/11/2019 9:58 AM EDT) Glucose 154 65 - 199 mg/dL [facility] Comment:Diabetes: >=200 mg/d L plus symptoms Blood Urea Nitrogen 19 10 - 20 mg/dL [facility] Creatinine 1.35 0.80 - 1.50 mg/dL [facility] Sodium 139 135 - 145 mmol/L [facility] Potassium 3.3(L) 3.5 - 5.0 mmol/L [facility] [...] - 15 mmol/L [facility] Calcium 9.8 8.5 - 10.5 mg/dL [facility] Protein, Total 7.5 6.1 - 8.0 gm/dL [facility] Albumin 4.1 3.2 - 5.2 gm/dL [facility] Aspartate Aminotransferase 17 0 - 39 unit/L [facility] Alanine Aminotransferase 18 0 - 55 unit/L [facility] Alkaline Phosphatase 71 40 - 130 unit/L [facility] Bilirubin, Total 1.9(H) 0.2 - 1.3 mg/dL [facility] Est Glomerular Filtration Rate 53(L) >=60 mL/min/1. 73 m?? [facility] Comment: The eGFR was calculated using the CKD-EPI equation. As with all creatinine based estimates of kidney function, eGFR values calculated with the CKD-EPI equation are not accurate in patients with acute kidney failure, extremes of body mass or the acutely ill. http://Collect.it/[facility] OK[facility] CITYnkf eGFR 61 >=60 mL/min/1. 73 m?? [facility] Comment: The eGFR was calculated using the CKD-EPI equation. As with all creatinine based estimates of kidney function, eGFR values calculated with the CKD-EPI equation are not accurate in patients with acute kidney failure, extremes of body mass or the acutely ill. http://Collect.it/[facility] CITYnkf Blood specimen (specimen) 03/11/2019 9:58 AM EDT 03/11/2019 10:23 AM EDT Narrative Resulting Agency Comment Spec In Lab Tal Eagle MD CHEMISTRY ORDERAB LES Performing Organization Address City/[facility]/ZIP Co de Phone Number [facility] [place] [address] * Cholesterol, total (03/11/2019 9:58 AM EDT) Cholesterol, Total 83 mg/dL [facility] Comment: Lower Risk: <200 mg/dL Average Risk: 200-239 mg/dL Higher Risk: >qm=775 mg/dL Lipid Interpretation See Note [facility] Comment: Lipid management should be guided by a patient? s ASCVD risk, goals and preferences. ACC/AHA Guidelines recommend high intensity statin if clinical ASCVD or LDL greater than or equal to 190 mg/dL. http://[employer].com/GCZ-SPB-Ltebfyusu Adults aged 40-75 with LDL 70-189 mg/dL should have their 10 year ASCVD risk estimated with the ACC/AHA ASCVD risk speech correction consultant http://tools.acc.org/WKWPN-Tozc-Bpwvuadyb/ Statin should be discussed if risk greater [...] City/[facility]/ZIP Co de Phone Number [facility] [place] [address] * (ABNORMAL) Magnesium (03/11/2019 9:58 AM EDT) Magnesium 0.57(L) 0.69 - 1.07 mmol/L [facility] Blood specimen (specimen) 03/11/2019 9:58 AM EDT 03/11/2019 10:23 AM EDT Narrative Resulting Agency Comment Spec In Lab Tal Eagle MD CHEMISTRY ORDERAB LES Performing Organization Address City/[facility]/ZIP Co de Phone Number [facility] [place] [address] * Phosphorus (03/11/2019 9:58 AM EDT) Phosphorus 2.8 2.5 - 4.5 mg/dL [facility] Blood specimen (specimen) 03/11/2019 9:58 AM EDT 03/11/2019 10:23 AM EDT Narrative Resulting Agency Comment Spec In Lab Tal Eagle MD CHEMISTRY ORDERAB LES Performing Organization Address [facility] Co de Phone Number [facility] [place] [address] * Uric acid (03/11/2019 9:58 AM EDT) Uric Acid 7.5 3.5 - 8.5 mg/dL [facility] Blood specimen (specimen) 03/11/2019 9:58 AM EDT 03/11/2019 10:23 AM EDT Narrative Resulting Agency Comment Spec In Lab Tal Eagle MD CHEMISTRY ORDERAB LES Performing Organization Address City/[facility] Co de Phone Number [facility] [place] [address] * Tacrolimus level (03/11/2019 9:58 AM EDT) Tacrolimus 8.3 ng/mL [facility] Comment: Trough therapeutic: ??5-15 ng/mL Performed by ultra-performance liquid chromatography tandem mass spectrometry (UPLCMS/MS). This test was developed and its performance characteristics determined by [facility]. It has not been cleared or [...] MD CHEMISTRY ORDERAB LES Performing Organization Address City/State/[facility] Co de Phone Number [facility] [place] [address] documented in this encounter Visit Diagnoses Diagnosis H/O kidney transplant Kidney replaced by transplant documented in this encounter Care Teams Demand Inspector Relationship Specialty Start Date End Date Urbano Denis DO [address] [place] [address] PCP - General 09/03/12 03/17/22 Ruchi Valles RN Nurse [facility] Transplant Surgery 07/30/15 documented as of this encounter
--- OUTSIDE RECORDS SUMMARY | 2024-05-16 17:23 | XMS_ITS | Encounter Summary ---
Author Organization [facility] [place] [address] Care Team Providers Care Nail Tech Name Role Phone Urbano Denis DO Primary Care Provider Encounter Details Date Type Department Care Team (Late st Contact Info) Description 02/22/2019 Notes Only Infectious Disease at [facility] [place] [address] Carmenza Shaw RN Social History Tobacco Use [...] line was removed by nursing staff at [facility]. Patient completed his IV ABX course at [facility] and was discharged. MARK Lynn, RN, ACM-RN OPAT Program documented in this encounter Plan of Treatment Upcoming Encounters Date Type Department Care Team (Late st Contact Info) Description 06/22/2024 11:00 AM EST TH Visit (TeleHealth) Cardiology at [address] [phone] Byron Brown MD [facility] [place] [address] 07/14/2024 10:00 AM EST Hospital Encounter Non-[place]vasive [place] [phone] Arrived documented as of this encounter Goals [...] on filedocumented in this encounter Care Teams Nail Tech Relationship Specialty Start Date End Date Urbano Denis DO [address] [place] [address] PCP - General 09/03/12 03/17/22 Ruchi Valles RN Nurse Clinic Transplant Surgery 07/30/15 documented as of this encounter
--- OUTSIDE RECORDS SUMMARY | 2024-05-16 17:23 | XMS_ITS | Encounter Summary ---
Author Organization [facility] [place] [address] Care Team Providers Care Outside Dealer Sales Representative Name Role Phone Adeel Urbano KIRBY Primary Care Provider + [phone] Reason for Visit * Reason Onset Date Comments Medication Refill 05/04/2019 Encounter Details Date Type Department Care Team (Late st Contact Info) Description 05/04/2019 Refill Cardiology at [address] [phone] Byron Brown MD [facility] [place] [address] Medication Refill Social History Tobacco Use Types [...] AM EST TH Visit (TeleHealth) Cardiology at [address] [phone] Byron Brown MD [facility] [place] [address] 07/14/2024 10:00 AM [facility] Hospital Encounter Non-Invasive [place] [address] Arrived documented as of this [...] fibrillation documented in this encounter Care Teams Outside Dealer Sales Representative Relationship Specialty Start Date End Date Urbano Denis DO [address] [place] [address] PCP - General 09/03/12 03/17/22 Ruchi Valles RN Nurse Clinic Transplant Surgery 07/30/15 documented as of this encounter
--- OUTSIDE RECORDS SUMMARY | 2024-05-16 17:24 | XMS_ITS | Encounter Summary ---
Author Organization [facility] [place] [address] Care Team Providers Care Lard Bleacher Name Role Phone Urbano Denis DO Primary Care Provider [phone] Reason for Referral * Consultation (Routine) - Specialty Diagnoses / Procedures Referred By Humberto flor Referred To Contact Cardiac Rehabilitation Diagnoses Non-ST elevation myocardial infarction (NSTEMI) Bobby Engel MD [facility] [place] [address] Referral ID Status Reason Start Date Expiration Date V isits Requested Visits Authorized [id number] Consult, Test & Treat 02/05/2019 08/04/2019 36 36 Reason for Visit * Reason Comments Dehydration Dizziness * Auth/Cert Specialty Diagnoses / Procedures Referred By Humberto flor Referred To Contact Diagnoses Paroxysmal atrial fibrillation Atrial fibrillation with RVR Referral ID Status Reason Start Date Expiration Date Visits Re quested Visits Authorized [id number] 1 1 Encounter Details Date Type Department Care Team (Latest Contact Info) Description 01/31/2019 11:21 AM EDT - 02/05/2019 4:04 PM EDT Hospital Encounter 1 [place] [address] Mundo Yeung MD [facility] [place] [address] Sandra Bunch MD [facility] [place] [address] [place] [address] [place] [address] [place] [address] Naif Garibay MD [facility] [place] [address] Paroxysmal atrial fibrillation; Non-ST elevation myocardial infarction [...] Ethel Bolden Patient Age: 68 y.o. Language: Egyptian Race: White Ethnicity: Not nor Admit date: [...] please contact your inpatient physician through the [facility] Mercury Recoverer . Issues afterhours and on weekends will [...] fluid loss. Denies any fevers or chills. Harrison bloated in abdomen since yesterday. No pain [...] pursue cardiac catheterization for an NSTEMI. Mr. Bloden in advertently ate breakfast on the morning of 02/02, so catheter time was set for later that afternoon. 90% occlusion was seen in OM1, and a stent was placed. Mr. Bolden did well after catheterization with no complications. He was also started on apixaban due to [id number] score of 6, with no complications of [...] night,and patient reported a history of ARIELLA. [place] Sleepiness Scale was notable for increased sleepiness; [...] Complete By Expires Referral to Cardiac Rehab [LXT004 Custom] As directed Process Instructions: If no progress note charted, please enter Clinical details in comments. Scheduling Instructions: Questions: My question or request is: Pt will participate in cardiac rehab @ [facility] Referral to Home Health - at DISCHARGE [QOQ9018 CPT(R)] As directed Process Instructions: Scheduling Instructions: Comments: DOCUMENTATION FOR VNA SERVICES (INCLUDING THOSE PATIENTS WITH MEDICARE COVERAGE REQUIRING HOME VNA SERVICES AND/OR HOSPICE SERVICES) PATIENT'S LOCATION: Ethel Bolden [address] [place] [address] (home) Cell: Telephone Information: Career Development Associate's Name: Patient In discussion with the attending physician, it is certified that this patient is under their care and that they, or a Nurse Practitioner,Clinical Nurse specialist or Physician Spray Stainer who is working directly with them, had [...] for managing ADL's. HOME HEALTH CARE AGENCY: [facility] PHONE: [phone] FAX: [phone] Start of care: 24-48hrs upon discharge FOR [...] [address] / [place] [id number] All VNA agencies which cover the area of patient's residence have been reviewed, either verbally greg writing, and patient/family have chosen the home health care agency noted Questions: Agency name and contact information: [facility] Patient location post discharge: [...] 02/05/2019 4:04 PM EDT Pt discharged [facility] via wheelchair, accompanied by and [...] spent <30 minutes (Day of Discharge Code [id number]) involved in the final examination of the [...] DAILY PROGRESS NOTE Patient: Ethel Bolden, 1950, [id number] Physician: Alessandro Limon DO, Pager: [phone], Hospital Medicine Service Admit Date: 01/31/2019 Date [...] PRN DIET: Daily Healthy Menu Choices/Cardiac diet ([facility]-Diet) IPI Certification I certify that I am a D-H credentialed attending provider with admitting privileges and that the patient meets or has met medical necessity to require an inpatient IPI level of care meeting a minimumof two midnights or is on the [facility] inpatient only procedure list (status C) due [...] side effects and NSTEMI Alessandro Limon DO [facility] Hospitalist 02/04/2019 4:42 PM * Mahsa Celestin RN - 02/04/2019 3:41 PM EDT Spoke with patient regarding VNA services, he asked me to speak with Mundo. This brief writer Viktor and she asked for a referral to: [facility]. PHONE: [phone] FAX: [phone] Referral routed to the Manager Portable for matching with agency/vendor and to provide [...] DO - 02/03/2019 5:02 PM EDT [facility] MEDICINE ATTENDING DAILY PROGRESS NOTE Patient: Ethel Bolden, 1950, [id number] Physician: Alessandro Limon DO, Pager: [phone], Hospital Medicine Service Admit Date: 01/31/2019 Date [...] PRN DIET: Daily Healthy Menu Choices/Cardiac diet ([facility]-Diet) IPI Certification I certify that I am a D-H credentialed attending provider with admitting privileges and that the patient meets or has met medical necessity to require an inpatient IPI level of care meeting a minimumof two midnights or is on the [facility] inpatient only procedure list (status C) due [...] side effects and NSTEMI Alessandro Limon DO [facility] Hospitalist 02/03/2019 5:14 PM * [...] from 01/31/2019 in Intermediate Cardiac Care Unit [facility] Office Visit from 09/15/2018 in Solid Organ Transplant at [place] Weight 107 kg (235 lb 14.3 oz) [...] - currently on heparin gtt; will need snf anticoagulation for CHADS-VASc of at least 4; [...] CURRENT MEDICATIONS: , Patient place back on [facility] for wob and o2. Will continue to monitor. Dario Peñaloza RCP * Alessandro Limon DO - 02/02/2019 3:47 PM EDT HOSPITAL MEDICINE ATTENDING DAILY PROGRESS NOTE Patient: Ethel Bolden, 1950, [id number] Physician: Alessandro Limon DO, Pager: [phone], [facility] Medicine Service Admit Date: 01/31/2019 Date of [...] minimumof two midnights or is on the [facility] inpatient only procedure list (status C) due [...] side effects and NSTEMI Alessandro Limon DO [facility] Hospitalist 02/02/2019 8:59 PM * Yamile Montoya, [facility] - 02/02/2019 8:46 AM EDT Respiratory [...] 100% Non re breather for transport to File Machine Operator PLAN: RT will cont to support [...] on 8L venti mask desat to 86%. COMPARISON SHOPPER Giselle notified. Nebulizer ordered with minimal effect. Chest xray obtained. Pt place on 12L 50% venti.RT notified requesting hi-flow. Pt continued to desat. Placed on nonrebreather sating 89%. COMPARISON SHOPPER notified. Nonrebreather only set to 50% fiO2 via hi flow stand. Came to bedside to assess. 2343- RT at bedside 2346- life safety at bedside * Alessandro Limon DO - 02/01/2019 4:28 PM EDT [facility] MEDICINE ATTENDING DAILY PROGRESS NOTE Patient: Ethel Bolden, 1950, [id number] Physician: Alessandro Limon DO, Pager: [phone], [facility] Medicine Service Admit Date: 01/31/2019 Date of [...] minimumof two midnights or is on the [facility] inpatient only procedure list (status C) due [...] low 90s while on mask 65L 50%. COMPARISON SHOPPER aware and had IVF stopped, ordered ABG - 7.46/33/122/22.9 on60% FO2Hb 97.4 with SpO2 still reading low 90s. Weaned FiO2 back down to 45%. Plan to start diuresis pending AM labs. PLAN: Wean settings as tolerated. Sharon Boo RCP * Polina Glaser RN - 01/31/2019 10:24 PM EDT Pt desating while asleep on RA. NC applied, unable to maintain sats on 6L NC. COMPARISON SHOPPER Giselle notified.Came to bedside to assess. Pt placed on venti mask. Pt up to 50% 12L venti mask to maintain sats >90%. RT notified. Paper Cap Machine Operator updated. No further labs ordered at [...] Hematuria ID: 68 y.o. Male presents to [facility] with lightheadedness and decreased urine output History [...] fluid loss. Denies any fevers or chills. Harrison bloated in abdomen since yesterday. No pain [...] [facility] III[facility]?? PRO REIMPLANT URETER, SINGLE URETER Left 05/20/2016 @URETERONEOCYSTOSTOMY ANASTOMOSIS OF SINGLE URETER TO BLADDER performed by Santosh Arredondo MD at [facility] ??? PRO REIMPLANT URETER, SINGLE URETER N/A 05/20/2016 @URETERONEOCYSTOSTOMY ANASTOMOSIS OF SINGLE URETER TO BLADDER performed by Que Amaro MD at [facility] ??? PRO TOTAL KNEE ARTHROPLASTY Right 11/25/2017 TOTAL KNEE ARTHROPLASTY (WRVU 20.72) performed by Breezy Dael MD at [facility] ??? PRO TRANSPLANT, PREP CADAVER RENAL GRAFT N/A 09/16/2015 @PREPARATION CADAVERIC RENAL ALLOGRAFT performed by Larry Larkin MD at [facility] ??? PRO TRANSPLANTATION OF KIDNEY N/A 09/16/2015 @KIDNEY TRANSPLANT, WITHOUT RECIPIENT NEPHRECTOMY performed by Larry Larkin MD at [facility] ??? US RENAL TRANSPLANT LEFT [...] file Gets together: Not on file Attends latter-day service: Not on file Active member of [...] Negative mcL Appearance UA Clear Clear Spec [place] UA 1.023 1.002 - 1.030 Color UA [...] to medicine Rocky Wong MD Resident 01/31/19 [id number] Associated attestation - Mundo Yeung MD - [...] - Work up for ARIELLA--scored high on [place] Sleep Scale; may benefit from outpatient sleep [...] off oxygen ?? Destinee Leggett M4 Pager: [phone] * Consult Note - Blanca Jacobo RN [...] in an outpatient cardiac rehabilitation program at [facility] was discussed. Patient agrees to [...] Edinson [facility] III[facility] ??? PRO REIMPLANT URETER, SINGLE URETER Left 05/20/2016 @URETERONEOCYSTOSTOMY ANASTOMOSIS OF SINGLE URETER TO BLADDER performed by Santosh Arredondo MD at [facility] ??? PRO REIMPLANT URETER, SINGLE URETER N/A 05/20/2016 @URETERONEOCYSTOSTOMY ANASTOMOSIS OF SINGLE URETER TO BLADDER performed by Que Amaro MD at [facility] ??? PRO TOTAL KNEE ARTHROPLASTY Right 11/25/2017 TOTAL KNEE ARTHROPLASTY (WRVU 20.72) performed by Breezy Dale MD at [facility] ??? PRO TRANSPLANT, PREP CADAVER RENAL GRAFT N/A 09/16/2015 @PREPARATION CADAVERIC RENAL ALLOGRAFT performed by Larry Larkin MD at [facility] ??? PRO TRANSPLANTATION OF KIDNEY N/A 09/16/2015 @KIDNEY TRANSPLANT, WITHOUT RECIPIENT NEPHRECTOMY performed by Larry Larkin MD at [facility] ??? US RENAL TRANSPLANT LEFT Left 01/31/2019 US Renal Transplant Left 01/31/2019 [facility] RAD ULTRASOUND Social History: Patient lives with his . Home Setup: 2 [address] home with 4 ROCA[address]; everything is accessible [...] and measurable assessment of functional outcome. Pager: [phone] Lee Ann Thomas OT 02/04/2019 Occupational Therapy [...] w/ O2 sat at low 90's and [id number]% non sustained. - 3:00am: Stewart x1, Pt [...] possibly be re-evaluated for cardiac rehab. Given [id number] score and history of aflutter, will begin [...] off oxygen ?? Destinee Leggett M4 Pager: [phone] * Consult Note - Sara Amador RN [...] Procedure Note: Patient Name: Ethel Bolden : [id number] MR#: [id number] Case Date: 02/02/2019 Mercury Recoverer: Surgeon(s) and Role: * Bobby Engel MD [...] HR <50, Systolic BP <90 - Elevated [id number]; patient may benefit from anticoagulation; to discuss [...] d/c ?Thursday ?? Destinee Leggett M4 Pager: [phone] * Plan of Care - Sharon Ruth [...] to recover. 1653 patient transferred to the receiver/laborer PLAN MOVING FORWARD: Telemetry Heparin drip Bleeding [...] GENERIC Prescription Coverage: Yes Preferred Pharmacy: [facility] [address] [address] Not a 24 hour pharmacy; exact hours not known [place] [address] Not a 24 hour pharmacy; exact hours not known Other: None Primary Care Provider: Urbano Denis DO [phone] Patient/Caregiver Goals of Treatment: To get the [...] of care planning. Mahsa Celestin RN Pager: [phone] * Plan of Care - Nika Starr [...] left heart cath, coronaries Nika Starr MD Pedigree Researcher * Plan of Care - Polina Glaser [...] HR <50, Systolic BP <90 - Elevated [id number]; patient may benefit from anticoagulation but unclear [...] d/c ?Thursday ?? Destinee Leggett M4 Pager: [phone] * Consult Note - Larry Garay MD [...] Chest xray completed. Trop came back elevated. COMPARISON SHOPPER Giselle notified. STAT EKG completed. Heparin gtt infusing as ordered. Life safety came to bedside. IVF decreased to 75cc/hr from 120cc/hr. Tele in sinus rhythm with frequent PVCs. Will CTM and notify the team with changes. 0410- Pt continues to have difficulty maintain sats on venti mask. Placed on Hi- flow mask. IVF stopped. Rt at bedside. ABG drawn. Life safety and COMPARISON SHOPPER at bedside. PLAN MOVING FORWARD: Tele Monitor [...] remained coarse and diminished in bases. Primary CELLULAR EQUIPMENT INSTALLER notified with concern of new oxygen demand. Plan made to d/c IVF r/tincreased pulmonary congestion shown on CXR and elevated troponin. AM labs drawn to evaluate RAY and d/c of IVF. MD expressed concerns of sleep apnea. When patient originally awake no increases in O2sat noted. ACUPRESSURIST notified and down to eval. Plan made [...] couple of years ago and don't want it.CELLULAR EQUIPMENT INSTALLER consulted critical care fellow at this time. Lasix IVP was discussed to help with new pulmonary congestion. Plan made to re evaluate s/p AM labs (ie. BUN/Cr) for concern of worsening RAY. Plan made with CELLULAR EQUIPMENT INSTALLER, primary RN, and charge account identification clerk for continued monitoring of oxygen status, repeat [...] with oxygenation. Plan made with primary RN, CELLULAR EQUIPMENT INSTALLER, and charge account identification clerk to have patient remain on floor r/t [...] Edinson [facility] III, [facility] ??? PRO REIMPLANT URETER, SINGLE URETER Left 05/20/2016 @URETERONEOCYSTOSTOMY ANASTOMOSIS OF SINGLE URETER TO BLADDER performed by Santosh Arredondo MD at [facility] ??? PRO REIMPLANT URETER, SINGLE URETER N/A 05/20/2016 @URETERONEOCYSTOSTOMY ANASTOMOSIS OF SINGLE URETER TO BLADDER performed by Que Amaro MD at [facility] ??? PRO TOTAL KNEE ARTHROPLASTY Right 11/25/2017 TOTAL KNEE ARTHROPLASTY (WRVU 20.72) performed by Breezy Dale MD at [facility] ??? PRO TRANSPLANT, PREP CADAVER RENAL GRAFT N/A 09/16/2015 @PREPARATION CADAVERIC RENAL ALLOGRAFT performed by Larry Larkin MD at [facility] ??? PRO TRANSPLANTATION OF KIDNEY N/A 09/16/2015 @KIDNEY TRANSPLANT, WITHOUT RECIPIENT NEPHRECTOMY performed by Larry Larkin MD at [facility] ??? US RENAL TRANSPLANT LEFT [...] file Gets together: Not on file Attends latter-day service: Not on file Active member of [...] ED to Hosp-Admission (Current) from 01/31/[address] [place] [address] Office Visit from 09/15/2018 in Solid Organ Transplant at [facility] Weight 106.1 kg (234 lb) 1 01/31/2019 [...] will continue to follow. Jessee Nance MD Pedigree Researcher [phone] POST ROUNDS ADDENDUM 68 year old [...] Cheung, addendum to follow. Nika Starr MD Pedigree Researcher [phone] Cardiology Staff Addendum Ethel Bolden is [...] on TTE) #Atrial fibrillation and flutter, nonvalvular, [id number] 6 #HFrEF/acute systolic HF, new (LVEF 35%), [...] this morning, hasn't urinated much, spoke to rea GERBER yesterday and told to come to hospital at 0930 today for labs an appointment, no appointment and orders had been arranged. documented in this encounter Plan of Treatment Upcoming Encounters Date Type Department Care Team (Late st Contact Info) Description 06/22/2024 11:00 AM EST TH Visit (TeleHealth) Cardiology at [address] [phone] Byron Brown MD [facility] [place] [address] 07/14/2024 10:00 AM EST Hospital Encounter Non-Invasive [...] EDT) pH, Arterial 7.50(H) 7.35 - 7.45 [facility] PCO2, Arterial 33(L) 35 - 45 mmHg [facility] PO2, Arterial 77(L) 85 - 104 mmHg [facility] Bicarbonate, Arterial 24.7 20.0 - 26.0 mmol/L [facility] Base Excess, Arterial 1.5 -3.0 - 3.0 mmol/L [facility] Hgb Blood Gas 16.3 13.7 - 16.5 gm/dL [facility] Oxyhemoglobin, Arterial 94.9 94.0 - 97.0 % [facility] Carboxyhemoglob in, Arterial 0.7 % [facility] Comment: Nonsmokers: 0.5-1.5% COHB Smokers: Variable, but usually less than 10% Toxic: 20-30% COHB Lethal: Greater than 60% COHB Methemoglobin, Arterial 0.5 <=1.5 % [facility] Na Whole Blood 133(L) 135 - 145 mmol/L [facility] K Whole Blood 4.1 3.5 - 5.0 mmol/L [facility] Whole Blood 98 98 - 107 mmol/L [facility] Gluc Whole Bld 138 65 - 199 mg/dL [facility] Comment:Diabetes: >=200 mg/d L plus symptoms. Lactate WB 1.5 0.5 - 2.2 mmol/L [facility] FIO2 Art 50 % [facility] PF Ratio Art 154 [facility] Blood specimen (specimen) 02/07/2019 2:42 AM EDT 02/07/2019 2:42 AM EDT Danny Hicks MD POINT OF CARE TEST O RDERABLES Performing Organization Address City/[facility]/ZIP Co de Phone Number [facility] [place] [address] * POCT Glucose (02/05/2019 11:25 AM EDT) Glucose, POC 163 65 - 199 mg/dL [facility] Comment: Supplemental ranges: <140 mg/dL before meals <180 mg/dL all other times of the day Blood specimen (specimen) 02/05/2019 11:25 AM EDT 02/05/2019 11:25 AM EDT Alessandro Limon DO POINT OF CARE TEST O RDERABLES Performing Organization Address [facility] Co de Phone Number [facility] [place] [address] * (ABNORMAL) Magnesium (02/05/2019 7:47 AM EDT) Magnesium 0.67(L) 0.69 - 1.07 mmol/L [facility] Blood specimen (specimen) 02/05/2019 7:47 AM EDT 02/05/2019 8:13 AM EDT Narrative Resulting Agency Comment Spec In Lab Alessandro Limon DO CHEMISTRY ORDERABLES Performing Organization Address [facility] Co de Phone Number [facility] [place] [address] * POCT Glucose (02/05/2019 6:56 AM EDT) Glucose, POC 110 65 - 199 mg/dL [facility] Comment: Supplemental ranges: <140 mg/dL before meals <180 mg/dL all other times of the day Blood specimen (specimen) 02/05/2019 6:56 AM EDT 02/05/2019 6:56 AM EDT Alessandro Limon DO POINT OF CARE TEST O RDERABLES Performing Organization Address [facility] de Phone Number [facility] [place] [address] * POCT Glucose (02/04/2019 7:38 PM EDT) Glucose, POC 102 65 - 199 mg/dL [facility] Comment: Supplemental ranges: <140 mg/dL before meals <180 mg/dL all other times of the day Blood specimen (specimen) 02/04/2019 7:38 PM EDT 02/04/2019 7:38 PM EDT Alessandro Limon DO POINT OF CARE TEST O RDERABLES Performing Organization Address [facility] de Phone Number [facility] [place] [address] * (ABNORMAL) BMP w/fasting Glucose (02/04/2019 7:35 PM EDT) Glucose Fasting 107(H) 65 - 99 mg/dL [facility] [...] of Diabetes Mellitus, Position Statement from the [place] [employer]. ??Diabetes Care, Volume 33, Supplement 1, Jul 2009 Blood Urea Nitrogen 20 10 - 20 mg/dL [facility] Creatinine 1.43 0.80 - 1.50 mg/dL [facility] Sodium 142 135 - 145 mmol/L [facility] [...] [facility] Carbon Dioxide 31 22 - 31 mmol/L [facility] Anion Gap 13 5 - 15 mmol/L [facility] Calcium 9.2 8.5 - 10.5 mg/dL [facility] Est Glomerular Filtration Rate 49(L) >=60 mL/min/1. 73 m?? [facility] Comment: The eGFR was calculated using the CKD-EPI equation. As with all creatinine based estimates of kidney function, eGFR values calculated with the CKD-EPI equation are not accurate in patients with acute kidney failure, extremes of body mass or the acutely ill. http://[employer]/[facility] eGFR 57(L) >=60 mL/min/1. 73 m?? [facility] Comment: The eGFR was calculated using the CKD-EPI equation. As with all creatinine based estimates of kidney function, eGFR values calculated with the CKD-EPI equation are not accurate in patients with acute kidney failure, extremes of body mass or the acutely ill. http://[employer]/[facility] Blood specimen (specimen) 02/04/2019 7:35 PM EDT 02/04/2019 7:40 PM EDT Narrative Resulting Agency Comment Spec In Lab Patricia Lozano APRN CHEMISTRY ORDERAB LES [facility] [place] [address] * POCT Glucose (02/04/2019 4:30 PM EDT) Glucose, POC 143 65 - 199 mg/dL [facility] Comment: Supplemental ranges: <140 mg/dL before meals <180 mg/dL all other times of the day Blood specimen (specimen) 02/04/2019 4:30 PM EDT 02/04/2019 4:30 PM EDT Alessandro Limon DO POINT OF CARE TEST O RDERABLES Performing Organization Address [facility] de Phone Number [facility] [place] [address] * POCT Glucose (02/04/2019 11:26 AM EDT) Glucose, POC 141 65 - 199 mg/dL [facility] Comment: Supplemental ranges: <140 mg/dL before meals <180 mg/dL all other times of the day Blood specimen (specimen) 02/04/2019 11:26 AM EDT 02/04/2019 11:26 AM EDT Alessandro Limon DO POINT OF CARE TEST O RDERABLES Performing Organization Address [facility] Co de Phone Number [facility] [place] [address] * POCT Glucose (02/04/2019 7:01 AM EDT) Glucose, POC 152 65 - 199 mg/dL [facility] Comment: Supplemental ranges: <140 mg/dL before meals <180 mg/dL all other times of the day Blood specimen (specimen) 02/04/2019 7:01 AM EDT 02/04/2019 7:01 AM EDT Alessandro Limon DO POINT OF CARE TEST O RDERABLES Performing Organization Address [facility] Co de Phone Number [facility] [place] [address] * Magnesium (02/04/2019 3:40 AM EDT) Magnesium 0.69 0.69 - 1.07 mmol/L [facility] Blood specimen (specimen) Venous Draw / Unknown 02/04/2019 3:40 AM EDT 02/04/2019 3:49 AM EDT Narrative Resulting Agency Comment Spec In Lab Alessandro Limon DO CHEMISTRY ORDERABLES [facility] [place] [address] * (ABNORMAL) Basic Metabolic Panel (non-fasting) (02/04/2019 3:40 AM EDT) Pathologist [facility] Glucose 126 65 - 199 mg/dL [facility] Comment:Diabetes: >=200 mg/d L plus symptoms Blood Urea Nitrogen 21(H) 10 - 20 mg/dL [facility] Creatinine 1.56(H) 0.80 - 1.50 mg/dL [facility] Sodium 139 135 - 145 mmol/L [facility] [...] Filtration Rate 44(L) >=60 mL/min/1. 73 m?? [facility] Comment: The eGFR was calculated using the CKD-EPI equation. As with all creatinine based estimates of kidney function, eGFR values calculated with the CKD-EPI equation are not accurate in patients with acute kidney failure, extremes of body mass or the acutely ill. http://[employer]/DHnkf eGFR 51(L) >=60 mL/min/1. 73 m?? [facility] Comment: The eGFR was calculated using the CKD-EPI equation. As with all creatinine based estimates of kidney function, eGFR values calculated with the CKD-EPI equation are not accurate in patients with acute kidney failure, extremes of body mass or the acutely ill. http://[employer]/[facility] Blood specimen (specimen) 02/04/2019 3:40 AM EDT 02/04/2019 3:49 AM EDT Narrative Resulting Agency Comment Spec In Lab Alessandro Limon DO CHEMISTRY ORDERABLES [facility] [place] [address] * (ABNORMAL) Hemogram (02/04/2019 3:40 AM EDT) White Blood Cell 9.8(H) 4.0 - 9.5 x10(3)/mc L [facility] Red Blood Cell 4.59 4.58 - 5.54 x10(6)/mc L [facility] Hemoglobin 14.1 13.7 - 16.5 gm/dL [facility] Hematocrit 41.9 40.5 - 48.5 % [facility] Mean Cell Volume 91.3 82.9 - 93.1 fL [facility] Mean Cell Hemoglobin 30.7 27.5 - 32.1 pg [facility] Mean Cell Hemoglobin Concentration 33.7 32.0 - 35.7 gm/dL [facility] Platelet 247 145 - 357 x10(3)/mc L [facility] RDW Standard Deviation 45.1(H) 36.0 - 45.0 fL [facility] RDW coefficient of variation 13.8 11.4 - 13.8 % [facility] Mean Platelet Volume 9.5 7.6 - 12.9 fL [facility] NRBC% auto 0.0 % [facility] NRBC Absolute 0.000 0.000 - 0.000 x10(3)/mc L [facility] Blood specimen (specimen) 02/04/2019 3:40 AM EDT 02/04/2019 3:49 AM EDT Narrative Resulting Agency Comment Spec In Lab Alessandro Limon DO HEMATOLOGY ORDERABLE S Performing Organization Address [facility] de Phone Number [facility] [place] [address] * POCT Glucose (02/03/2019 8:56 PM EDT) [facility] Glucose, POC 117 65 - 199 mg/dL [facility] Comment: Supplemental ranges: <140 mg/dL before meals <180 mg/dL all other times of the day Blood specimen (specimen) 02/03/2019 8:56 PM EDT 02/03/2019 8:56 PM EDT Alessandro Limon DO POINT OF CARE TEST O RDERABLES Performing Organization Address [facility] de Phone Number [facility] [place] [address] * Heparin (unfractionated) Level (02/03/2019 5:07 PM EDT) [facility] UF Heparin 0.31 IU/mL [facility] Comment: Guidelines for therapeutic [...] MD HEMATOLOGY ORDERABLE S Performing Organization Address [facility] Co de Phone Number [facility] [place] [address] * POCT Glucose (02/03/2019 4:40 PM EDT) Glucose, POC 160 65 - 199 mg/dL [facility] Comment: Supplemental ranges: <140 mg/dL before meals <180 mg/dL all other times of the day Blood specimen (specimen) 02/03/2019 4:40 PM EDT 02/03/2019 4:40 PM EDT Alessandro Limon DO POINT OF CARE TEST O RDERABLES Performing Organization Address [facility] Co de Phone Number [facility] [place] [address] * POCT Glucose (02/03/2019 11:41 AM EDT) Glucose, POC 169 65 - 199 mg/dL [facility] Comment: Supplemental ranges: <140 mg/dL before meals <180 mg/dL all other times of the day Blood specimen (specimen) 02/03/2019 11:41 AM EDT 02/03/2019 11:41 AM EDT Alessandro Limon DO POINT OF CARE TEST O RDERABLES Performing Organization Address [facility] Co de Phone Number [facility] [place] [address] * Heparin (unfractionated) Level (02/03/2019 10:02 AM EDT) Pathologist [facility] UF Heparin 0.33 IU/mL [facility] Comment: Guidelines for therapeutic [...] DO HEMATOLOGY ORDERABLE S Performing Organization Address [facility] de Phone Number [facility] [place] [address] * POCT Glucose (02/03/2019 7:14 AM EDT) Pathologist [facility] Glucose, POC 118 65 - 199 mg/dL [facility] Comment: Supplemental ranges: <140 mg/dL before meals <180 mg/dL all other times of the day Blood specimen (specimen) 02/03/2019 7:14 AM EDT 02/03/2019 7:14 AM EDT Alessandro Limon DO POINT OF CARE TEST O RDERABLES Performing Organization Address [facility] de Phone Number [facility] [place] [address] * Magnesium (02/03/2019 6:34 AM EDT) Magnesium 0.71 0.69 - 1.07 mmol/L [facility] Blood specimen (specimen) 02/03/2019 6:34 AM EDT 02/03/2019 6:41 AM EDT Narrative Resulting Agency Comment Spec In Lab Alessandro Limon DO CHEMISTRY ORDERABLES [facility] [place] [address] * (ABNORMAL) Basic Metabolic Panel (non-fasting) (02/03/2019 6:34 AM EDT) Glucose 115 65 - 199 mg/dL [facility] Comment:Diabetes: >=200 mg/d L plus symptoms Blood Urea Nitrogen 22(H) 10 - 20 mg/dL [facility] Creatinine 1.44 0.80 - 1.50 mg/dL [facility] Sodium 137 135 - 145 mmol/L [facility] [...] [facility] Anion Gap 10 5 - 15 mmol/L [facility] Calcium 8.4(L) 8.5 - 10.5 mg/dL [facility] Est Glomerular Filtration Rate 49(L) >=60 mL/min/1. 73 m?? [facility] Comment: The eGFR was calculated using the CKD-EPI equation. As with all creatinine based estimates of kidney function, eGFR values calculated with the CKD-EPI equation are not accurate in patients with acute kidney failure, extremes of body mass or the acutely ill. http://[employer]/DHnkf eGFR 57(L) >=60 mL/min/1. 73 m?? [facility] Comment: The eGFR was calculated using the CKD-EPI equation. As with all creatinine based estimates of kidney function, eGFR values calculated with the CKD-EPI equation are not accurate in patients with acute kidney failure, extremes of body mass or the acutely ill. http://[employer]/[facility] Blood specimen (specimen) 02/03/2019 6:34 AM EDT 02/03/2019 6:41 AM EDT Narrative Resulting Agency Comment Spec In Lab Alessandro Limon DO CHEMISTRY ORDERABLES [facility] [place] [address] * (ABNORMAL) Hemogram (02/03/2019 6:34 AM EDT) White Blood Cell 8.9 4.0 - 9.5 x10(3)/mc L [facility] Red Blood Cell 4.05(L) 4.58 - 5.54 x10(6)/mc L [facility] Hemoglobin 12.8(L) 13.7 - 16.5 gm/dL [facility] Hematocrit 38.0(L) 40.5 - 48.5 % [facility] Mean Cell Volume 93.8(H) 82.9 - 93.1 fL [facility] Mean Cell Hemoglobin 31.6 27.5 - 32.1 pg [facility] Mean Cell Hemoglobin Concentration 33.7 32.0 - 35.7 gm/dL [facility] Platelet 200 145 - 357 x10(3)/mc L [facility] RDW Standard Deviation 46.7(H) 36.0 - 45.0 fL [facility] RDW coefficient of variation 13.8 11.4 - 13.8 % [facility] Mean Platelet Volume 9.6 7.6 - 12.9 fL [facility] NRBC% auto 0.0 % [facility] NRBC Absolute 0.000 0.000 - 0.000 x10(3)/mc L [facility] Blood specimen (specimen) 02/03/2019 6:34 AM EDT 02/03/2019 6:41 AM EDT Narrative Resulting Agency Comment Spec In Lab Alessandro Limon DO HEMATOLOGY ORDERABLE S Performing Organization Address City/[facility]/ZIP Co de Phone Number [facility] [place] [address] * POCT Glucose (02/02/2019 10:04 PM EDT) Glucose, POC 188 65 - 199 mg/dL [facility] Comment: Supplemental ranges: <140 mg/dL before meals <180 mg/dL all other times of the day Blood specimen (specimen) 02/02/2019 10:04 PM EDT 02/02/2019 10:04 PM EDT Alessandro Limon DO POINT OF CARE TEST O RDERABLES Performing Organization Address [facility] Co de Phone Number [facility] [place] [address] * POCT Glucose (02/02/2019 7:54 PM EDT) Glucose, POC 101 65 - 199 mg/dL [facility] Comment: Supplemental ranges: <140 mg/dL before meals <180 mg/dL all other times of the day Blood specimen (specimen) 02/02/2019 7:54 PM EDT 02/02/2019 7:54 PM EDT Alessandro Limon DO POINT OF CARE TEST O RDERABLES Performing Organization Address City/[facility]/ZIP Co de Phone Number [facility] [place] [address] * EKG 12 Lead (02/02/2019 7:26 PM EDT) Ventricular rate 65 BPM MUSE SYSTEM Atrial Rate 65 BPM MUSE SYSTEM P-R Interval 192 ms MUSE SYSTEM QRS Duration 116 ms MUSE SYSTEM Q-T Interval 440 ms MUSE SYSTEM QTC Calculated (Bezet) 457 ms MUSE SYSTEM Calculated P [place] 48 degrees MUSE SYSTEM Calculated R [place] -59 degrees MUSE SYSTEM Calculated T [place] 15 degrees MUSE SYSTEM INTERPRETATION Sinus rhythm with Premature atrial complexes Left anterior fascicular block Abnormal ECG When compared with ECG of 01-FEB-2019 01:00, T wave inversion no longer evident in Anterolateral leads Confirmed by MD Phillip Daniel ([id number]) on 02/03/2019 3:52:55 PM MUSE SYSTEM 02/02/2019 7:26 PM EDT 02/03/2019 3:52 PM EDT Alessandro Limon DO ECG ORDERABLES MUSE SYSTEM * CARDIAC CATHETERIZATION (02/02/2019 6:59 PM EDT) Anatomical Region Laterality Modality Other Narrative 02/03/2019 1:49 AM EDT ?[facility] ? Cardiac Catheterization/Intervention Report ? Patient Name: Ethel Bolden. ? Procedure Date: 02/02/2019 ? A #: [id number] ? Primary Physician: Toro, Bobby T ? Case #: [id number] ? File Name: [id number] ? Catheterization Order Number: [id number] ? [facility] ? Final Report [place], [place] ? Patient Name: ? Ethel P. Tubiello ? ID#: ?[id number] ? : ?1950 ? Procedure Date: ? [...] procedure was Urgent. The indication for ?the receiver/laborer visit is ACS less than or equal [...] on chronic DAPT on arrival to the receiver/laborer. ?Recommend continuing clopidogrel 75 mg PO daily [...] Procedure Note Bobby Engel MD - 06/25/2019 [facility] Cardiac Catheterization/Intervention Report Patient Name: Ethel Bolden Procedure Date: 02/02/2019 A #: [id number] Primary Physician: Bobby Engel Case #: [id number] File Name: [id number] Catheterization Order Number: [id number] [facility] FinalReport [place], [place] Patient Name: Ethel Bolden ID#:[id number] :1950 Procedure Date: February 02, 2019 Case [...] patient was designated as ASAClass III. The [facility] clinical frailty scale is 6: Moderately Frail. Diagnostic Tests: Prior Coronary Angiography: LV ejection fraction within 6 months is 55%. Electrocardiography: EKG was assessed by ECG. EKG was Abnormal. EKG showed T-wave inversions. Medications Prior to Procedure: ASA and Statin. Indications for Diagnostic Cath: The priority of the diagnostic procedure was Urgent. The indicationfor the receiver/laborer visit is ACS less than or equal [...] The lesion was predilated with a 2.00mm [id number] MM balloon with a maximum inflation pressure [...] on chronic DAPT on arrival to the receiver/laborer. Recommend continuing clopidogrel 75 mg PO daily [...] EDT) pH, POC 7.48(H) 7.35 - 7.45 [facility] pCO2, POC 33(L) 35 - 45 mmHg [facility] pO2, POC 51(L) 85 - 104 mmHg [facility] Base Excess, POC 1.0 -3.0 - 3.0 mmol/L [facility] Bicarbonate, POC 24.9 20.0 - 26.0 mmol/L [facility] Sodium, POC 140 135 - 145 mmol/L [facility] POC Potassium 3.5 3.5 - 5.0 mmol/L [facility] Ionized Calcium, POC 1.15 1.15 - 1.33 mmol/L [facility] POC Hematocrit 41.0 40.0 - 51.0 % [facility] POC Calc Hgb 13.9 13.7 - 17.5 gm/dL [facility] Comment:The calculation of h emoglobin from hematocrit assumes a normal MCHC. POC Bgas Loc CC LAB [facility] Blood specimen (specimen) 02/02/2019 6:15 PM EDT 02/04/2019 1:23 PM EDT Alessandro Limon DO CHEMISTRY ORDERABLES Performing Organization Address [facility] Co de Phone Number [facility] [place] [address] * POCT Glucose (02/02/2019 4:16 PM EDT) Glucose, POC 114 65 - 199 mg/dL [facility] Comment: Supplemental ranges: <140 mg/dL before meals <180 mg/dL all other times of the day Blood specimen (specimen) 02/02/2019 4:16 PM EDT 02/02/2019 4:16 PM EDT Alessandro Limon DO POINT OF CARE TEST O RDERABLES Performing Organization Address [facility] Co de Phone Number [facility] [place] [address] * XR Chest One View (02/02/2019 3:30 [...] EDT) pH, Arterial 7.46(H) 7.35 - 7.45 [facility] PCO2, Arterial 32(L) 35 - 45 mmHg [facility] PO2, Arterial 103 85 - 104 mmHg [facility] Bicarbonate, Arterial 22.2 20.0 - 26.0 mmol/L [facility] Base Excess, Arterial -1.5 -3.0 - 3.0 mmol/L [facility] Hgb Blood Gas 14.9 13.7 - 16.5 gm/dL [facility] Oxyhemoglobin, Arterial 97.1(H) 94.0 - 97.0 % [facility] Carboxyhemoglob in, Arterial 0.5 % [facility] Comment: Nonsmokers: 0.5-1.5% COHB Smokers: Variable, but usually less than 10% Toxic: 20-30% COHB Lethal: Greater than 60% COHB Methemoglobin, Arterial 0.3 <=1.5 % [facility] Na Whole Blood 134(L) 135 - 145 mmol/L [facility] K Whole Blood 3.8 3.5 - 5.0 mmol/L [facility] Comment: Please note: Patients with WBC >100,000 may have falsely elevated Potassium levels. Contact the Clinical Chemistry Laboratory if there are any questions. ICa Whole Blood 1.16 1.15 - 1.33 mmol/L [facility] Comment: Note: ??Total bilirubin higher than 20 mg/dL may lead to falsely low ionized calcium. CL Whole Blood 102 98 - 107 mmol/L [facility] Gluc Whole Bld 123 65 - 199 mg/dL [facility] Comment:Diabetes: >=200 mg/d L plus symptoms. Lactate WB 1.3 0.5 - 2.2 mmol/L [facility] FIO2 Art 70 % [facility] PF Ratio Art 147 [facility] Blood specimen (specimen) 02/02/2019 3:23 PM EDT 02/02/2019 3:23 PM EDT Alessandro Limon DO POINT OF CARE TEST O RDERABLES [facility] [place] [address] * POCT Glucose (02/02/2019 12:44 PM EDT) Glucose, POC 129 65 - 199 mg/dL [facility] Comment: Supplemental ranges: <140 mg/dL before meals <180 mg/dL all other times of the day Blood specimen (specimen) 02/02/2019 12:44 PM EDT 02/02/2019 12:44 PM EDT Alessandro Limon DO POINT OF CARE TEST O RDERABLES Performing Organization Address [facility] de Phone Number [facility] [place] [address] * Heparin (unfractionated) Level (02/02/2019 12:33 PM EDT) Pathologist [facility] UF Heparin 0.29 IU/mL [facility] Comment: Guidelines for therapeutic [...] MD HEMATOLOGY ORDERABLE S Performing Organization Address [facility] de Phone Number [facility] [place] [address] * POCT Glucose (02/02/2019 11:31 AM EDT) Glucose, POC 144 65 - 199 mg/dL [facility] Comment: Supplemental ranges: <140 mg/dL before meals <180 mg/dL all other times of the day Blood specimen (specimen) 02/02/2019 11:31 AM EDT 02/02/2019 11:31 AM EDT Alessanrdo Limon DO POINT OF CARE TEST O RDERABLES Performing Organization Address [facility] de Phone Number [facility] [place] [address] * (ABNORMAL) POCT Glucose (02/02/2019 8:23 AM EDT) Glucose, POC 217(H) 65 - 199 mg/dL [facility] Comment: Supplemental ranges: <140 mg/dL before meals <180 mg/dL all other times of the day Blood specimen (specimen) 02/02/2019 8:23 AM EDT 02/02/2019 8:23 AM EDT Alessandro Limon DO POINT OF CARE TEST O TED Performing Organization Address [facility] de Phone Number [facility] [place] [address] * Heparin (unfractionated) Level (02/02/2019 6:12 AM EDT) Pathologist [facility] UF Heparin 0.32 IU/mL [facility] Comment: Guidelines for therapeutic [...] MD HEMATOLOGY ORDERABLE S Performing Organization Address [facility] Co de Phone Number [facility] [place] [address] * Magnesium (02/02/2019 6:12 AM EDT) Magnesium 0.74 0.69 - 1.07 mmol/L [facility] Blood specimen (specimen) 02/02/2019 6:12 AM EDT 02/02/2019 6:33 AM EDT Narrative Resulting Agency Comment Spec In Lab Alessandro Limon DO CHEMISTRY ORDERABLES Performing Organization Address [facility] de Phone Number [facility] [place] [address] * (ABNORMAL) Basic Metabolic Panel (non-fasting) (02/02/2019 6:12 AM EDT) Glucose 146 65 - 199 mg/dL [facility] Comment:Diabetes: >=200 mg/d L plus symptoms Blood Urea Nitrogen 29(H) 10 - 20 mg/dL [facility] Creatinine 1.64(H) 0.80 - 1.50 mg/dL [facility] Sodium 138 135 - 145 mmol/L [facility] [...] Filtration Rate 42(L) >=60 mL/min/1. 73 m?? [facility] Comment: The eGFR was calculated using the CKD-EPI equation. As with all creatinine based estimates of kidney function, eGFR values calculated with the CKD-EPI equation are not accurate in patients with acute kidney failure, extremes of body mass or the acutely ill. http://[employer]/[facility] eGFR 48(L) >=60 mL/min/1. 73 m?? [facility] Comment: The eGFR was calculated using the CKD-EPI equation. As with all creatinine based estimates of kidney function, eGFR values calculated with the CKD-EPI equation are not accurate in patients with acute kidney failure, extremes of body mass or the acutely ill. http://[employer]/[facility] Blood specimen (specimen) 02/02/2019 6:12 AM EDT 02/02/2019 6:33 AM EDT Narrative Resulting Agency Comment Spec In Lab Alessandro Limon DO CHEMISTRY ORDERABLES Performing Organization Address City/State/[facility] Co de Phone Number [facility] [place] [address] * (ABNORMAL) Hemogram (02/02/2019 6:12 AM EDT) White Blood Cell 9.7(H) 4.0 - 9.5 x10(3)/mc L [facility] Red Blood Cell 4.52(L) 4.58 - 5.54 x10(6)/mc L [facility] Hemoglobin 14.0 13.7 - 16.5 gm/dL [facility] Hematocrit 42.4 40.5 - 48.5 % [facility] Mean Cell Volume 93.8(H) 82.9 - 93.1 fL [facility] Mean Cell Hemoglobin 31.0 27.5 - 32.1 pg [facility] Mean Cell Hemoglobin Concentration 33.0 32.0 - 35.7 gm/dL [facility] Platelet 206 145 - 357 x10(3)/mc L [facility] RDW Standard Deviation 45.8(H) 36.0 - 45.0 fL [facility] RDW coefficient of variation 13.8 11.4 - 13.8 % [facility] Mean Platelet Volume 9.9 7.6 - 12.9 fL [facility] NRBC% auto 0.0 % [facility] NRBC Absolute 0.000 0.000 - 0.000 x10(3)/mc L [facility] Blood specimen (specimen) 02/02/2019 6:12 AM EDT 02/02/2019 6:33 AM EDT Narrative Resulting Agency Comment Spec In Lab Alessandro Limon DO HEMATOLOGY ORDERABLE S Performing Organization Address City/[facility]/ZIP Co de Phone Number [facility] [place] [address] * POCT Glucose (02/02/2019 6:10 AM EDT) Pathologist [facility] Glucose, POC 139 65 - 199 mg/dL [facility] Comment: Supplemental ranges: <140 mg/dL before meals <180 mg/dL all other times of the day Blood specimen (specimen) 02/02/2019 6:10 AM EDT 02/02/2019 6:10 AM EDT Alessandro Limon DO POINT OF CARE TEST O RDERABLES Performing Organization Address City/[facility]/ZIP Co de Phone Number [facility] [place] [address] * Heparin (unfractionated) Level (02/01/2019 11:42 PM EDT) [facility] UF Heparin 0.24 IU/mL [facility] Comment: Guidelines for therapeutic [...] Lab Anabel Duncan MD HEMATOLOGY ORDERABLE S [facility] [place] [address] * XR Chest PA or AP 1 [...] Glucose, POC 111 65 - 199 mg/dL [facility] Comment: Supplemental ranges: <140 mg/dL before meals <180 mg/dL all other times of the day Blood specimen (specimen) 02/01/2019 8:41 PM EDT 02/01/2019 8:41 PM EDT Alessandro Limon DO POINT OF CARE TEST O DENNYSERABG Performing Organization Address City/[facility]/ZIP Co de Phone Number [facility] [place] [address] * POCT Glucose (02/01/2019 5:02 PM EDT) Pathologist [facility] Glucose, POC 145 65 - 199 mg/dL [facility] Comment: Supplemental ranges: <140 mg/dL before meals <180 mg/dL all other times of the day Blood specimen (specimen) 02/01/2019 5:02 PM EDT 02/01/2019 5:02 PM EDT Alessandro Limon POINT OF CARE TEST O TED Performing Organization Address [facility] Co de Phone Number [facility] [place] [place] [address] * (ABNORMAL) Troponin (02/01/2019 4:50 PM EDT) [facility] Troponin-T 0.08(H) 0.00 - 0.00 ng/mL [facility] Comment: The 99th percentile for Troponin T is less than 0.01 ng/mL, any detectable cTnT concentration using this assay should be considered elevated. According to the third universal definition of myocardial infarction the following criteria with a clinical presentation consistent with acute myocardial ischemia meets the diagnosis for a myocardial infarction ([place]). Detection of a rise and/or fall of cTnT, with at least one value greater than the 99th percentile (> or = 0.01) and with at least one of the following ?? Symptoms of ischemia ?? New or presumed new significant LT-uvejpnz-Q wave (ST-T) changes or new left bundle [...] additional sample may be indicated. Reference: Third [place] Definition of Myocardial Infarction. Journal of the [place] [employer] 2012;60:1581-98 Blood specimen (specimen) 02/01/2019 4:50 PM EDT 02/01/2019 5:14 PM EDT Narrative Resulting Agency Comment Spec In Lab Anabel Duncan MD CHEMISTRY ORDERABLES Performing Organization Address [facility] de Phone Number [facility] [place] [address] * Heparin (unfractionated) Level (02/01/2019 4:50 PM EDT) Pathologist [facility] UF Heparin 0.22 IU/mL [facility] Comment: Guidelines for therapeutic [...] ORDERABLE S Performing Organization Address [facility] de Phone Number [facility] [place] [address] * (ABNORMAL) Magnesium (02/01/2019 3:04 PM EDT) [facility] Magnesium 0.68(L) 0.69 - 1.07 mmol/L [facility] Blood specimen (specimen) 02/01/2019 3:04 PM EDT 02/01/2019 3:25 PM EDT Narrative Resulting Agency Comment Spec In Lab Alessandro Limon CHEMISTRY ORDERABLES [facility] [place] [address] * (ABNORMAL) Basic Metabolic Panel (non-fasting) (02/01/2019 3:04 PM EDT) Glucose 129 65 - 199 mg/dL [facility] Comment:Diabetes: >=200 mg/d L plus symptoms Blood Urea Nitrogen 33(H) 10 - 20 mg/dL [facility] Creatinine 2.05(H) 0.80 - 1.50 mg/dL [facility] Sodium 138 135 - 145 mmol/L [facility] Potassium 4.1 3.5 - 5.0 mmol/L [facility] mg/dL [facility] Comment:result rechecked-imm Est Glomerular Filtration Rate 32(L) >=60 mL/min/1. 73 m?? [facility] Comment: The eGFR was calculated using the CKD-EPI equation. As with all creatinine based estimates of kidney function, eGFR values calculated with the CKD-EPI equation are not accurate in patients with acute kidney failure, extremes of body mass or the acutely ill. http://[employer]/[facility] eGFR 37(L) >=60 mL/min/1. 73 m?? [facility] Comment: The eGFR was calculated using the CKD-EPI equation. As with all creatinine based estimates of kidney function, eGFR values calculated with the CKD-EPI equation are not accurate in patients with acute kidney failure, extremes of body mass or the acutely ill. http://[employer]/[facility] Blood specimen (specimen) 02/01/2019 3:04 PM EDT 02/01/2019 3:25 PM EDT Narrative Resulting Agency Comment Spec In Lab Alessandro Limon DO CHEMISTRY ORDERABLES Performing Organization Address [facility] de Phone Number [facility] [place] [address] * POCT Glucose (02/01/2019 11:22 AM EDT) [facility] Glucose, POC 116 65 - 199 mg/dL [facility] Comment: Supplemental ranges: <140 mg/dL before meals <180 mg/dL all other times of the day Blood specimen (specimen) 02/01/2019 11:22 AM EDT 02/01/2019 11:22 AM EDT Alessandro Limon DO POINT OF CARE TEST O RDERABLES Performing Organization Address [facility] de Phone Number [facility] [place] [address] * Heparin (unfractionated) Level (02/01/2019 10:58 AM EDT) Pathologist [facility] UF Heparin 0.15 IU/mL [facility] Comment: Guidelines for therapeutic [...] [facility] Co de Phone Number [facility] [place] [address] * ECHO COMPLETE W CONTRAST (02/01/2019 10:38 AM EDT) Anatomical Region Laterality Modality Other 02/01/2019 Narrative 02/01/2019 10:52 AM EDT Amended Report Procedure: ?Transthoracic Echocardiogram Patient: ?TUBANALO ETHEL P ? (Age): 1950(68y) Med Rec#: ? [id number] ?Sex: ?M ? [place] [facility] [place]t / Wt: ??177(cm)/104(kg) Pt. Loc: ?Adult Floor ? BSA: ?2.2 Study Date: ?? 02/01/2019 ?Pt. Type: Inpatient Tape: ? Referring: Anabel Duncan Reading: Gibson Rooney ([id number]) Human Capital Manager: Kameron Miller [facility] Diagnosis: *Paroxysmal atrial fibrillation (I48.0) [...] ? Mid-Inferior ?Hypokinetic ? Mid-Inferoseptal ?Hypokinetic ? [place]-Septal ? Hypokinetic ? [place]-Anterior ? Normal ? [place]-Lateral ?Hypokinetic ? [place]-Inferior ? Hypokinetic ? [place]-Tip ?Hypokinetic ? This report has been electronically signed by: Gibson Rooney MD ? 02/01/2019 13:30:01 Images reviewed and interpretation verified [facility] Procedure Note Gibson Rooney MD - 02/01/2019 Amended Report Procedure: Transthoracic Echocardiogram Patient: MABLE DORANTES(Age): 1950(68y) Med Rec#: [id number] Sex: M [place] [facility] Ht / Wt: 177(cm)/104(kg) Pt. Loc: Adult Floor BSA: 2.2 Study Date: 02/01/2019 Pt. Type: Inpatient Tape: Referring: Anabel Duncan Reading: Gibson Rooney ([id number]) Human Capital Manager: Kameron Miller RD Diagnosis: *Paroxysmal atrial fibrillation (I48.0) Rhythm: A-Fib [...] Hypokinetic Mid-Posterolateral Akinetic Mid-Inferior Hypokinetic Mid-Inferoseptal Hypokinetic [place]-Septal Hypokinetic [place]-Anterior Normal [place]-Lateral Hypokinetic [place]-Inferior Hypokinetic [place]-Tip Hypokinetic This report has been electronically signed by: Gibson Rooney MD 02/01/2019 13:30:01 Images reviewed and interpretation verified [facility] Anabel Duncan MD ECHO ORDERABLES * (ABNORMAL) Troponin (02/01/2019 7:40 AM EDT) Troponin-T 0.08(H) 0.00 - 0.00 ng/mL [facility] Comment: The 99th percentile for Troponin T is less than 0.01 ng/mL, any detectable cTnT concentration using this assay should be considered elevated. According to the third universal definition of myocardial infarction the following criteria with a clinical presentation consistent with acute myocardial ischemia meets the diagnosis for a myocardial infarction ([place]). Detection of a rise and/or fall of cTnT, with at least one value greater than the 99th percentile (> or = 0.01) and with at least one of the following ?? Symptoms of ischemia ?? New or presumed new significant GY-mjptlrz-N wave (ST-T) changes or new left bundle [...] additional sample may be indicated. Reference: Third [place] Definition of Myocardial Infarction. Journal of the [place] College [employer]iology 2012;60:1581-98 Blood specimen (specimen) 02/01/2019 7:40 AM EDT 02/01/2019 7:47 AM EDT Narrative Resulting Agency Comment Spec In Lab Nadia Haider APRN CHEMISTRY ORDERABL ES [facility] [place] [address] * (ABNORMAL) Differential, Automated (02/01/2019 7:40 AM EDT) Neutrophil % 77.0 % [facility] Neutrophil Absolute 7.40(H) 1.70 - 6.10 x10(3)/mc L [facility] Lymph % 13.0 % [facility] Lymphocytes Abs 1.2 0.9 - 3.2 x10(3)/[facility] Monocyte % 8.1 % [facility] Monocyte Abs 0.8 0.3 - 0.9 x10(3)/[facility] Eos % 1.2 % [facility] Eosinophils Abs 0.1 0.0 - 0.4 x10(3)/[facility] Basophil % 0.5 % [facility] [...] Absolute 0.02 0.00 - 0.04 x10(3)/mc L [facility] Blood specimen (specimen) 02/01/2019 7:40 AM EDT 02/01/2019 7:47 AM EDT Narrative Resulting Agency Comment Spec In Lab Anabel Duncan MD HEMATOLOGY ORDERABLE S [facility] [place] [address] * (ABNORMAL) Hemogram (02/01/2019 7:40 AM EDT) White Blood Cell 9.6(H) 4.0 - 9.5 x10(3)/mc L [facility] Red Blood Cell 4.50(L) 4.58 - 5.54 x10(6)/mc L [facility] Hemoglobin 14.0 13.7 - 16.5 gm/dL [facility] Hematocrit 41.2 40.5 - 48.5 % [facility] Mean Cell Volume 91.6 82.9 - 93.1 fL [facility] Mean Cell Hemoglobin 31.1 27.5 - 32.1 pg [facility] Mean Cell Hemoglobin Concentration 34.0 32.0 - 35.7 gm/dL [facility] Platelet 206 145 - 357 x10(3)/mc L [facility] RDW Standard Deviation 45.5(H) 36.0 - 45.0 fL [facility] RDW coefficient of variation 13.9(H) 11.4 - 13.8 % [facility] Mean Platelet Volume 10.0 7.6 - 12.9 fL [facility] NRBC% auto 0.0 % [facility] NRBC Absolute 0.000 0.000 - 0.000 x10(3)/mc L [facility] Blood specimen (specimen) 02/01/2019 7:40 AM EDT 02/01/2019 7:47 AM EDT Narrative Resulting Agency Comment Spec In Lab Anabel Duncan MD HEMATOLOGY ORDERABLE S [facility] [place] [address] * POCT Glucose (02/01/2019 6:22 AM EDT) Glucose, POC 121 65 - 199 mg/dL [facility] Comment: Supplemental ranges: <140 mg/dL before meals <180 mg/dL all other times of the day Blood specimen (specimen) 02/01/2019 6:22 AM EDT 02/01/2019 6:22 AM EDT Anabel Duncan MD POINT OF CARE TEST O RDERABLES [facility] [place] [address] * (ABNORMAL) BLOOD GAS 2 ARTERIAL (02/01/2019 4:14 AM EDT) Pathologist [facility] pH, Arterial 7.46(H) 7.35 - 7.45 [facility] PCO2, Arterial 33(L) 35 - 45 mmHg [facility] PO2, Arterial 122(H) 85 - 104 mmHg [facility] Bicarbonate, Arterial 22.9 20.0 - 26.0 mmol/L [facility] Base Excess, Arterial -1.0 -3.0 - 3.0 mmol/L [facility] Hgb Blood Gas 14.9 13.7 - 16.5 gm/dL [facility] Oxyhemoglobin, Arterial 97.4(H) 94.0 - 97.0 % [facility] Carboxyhemoglob in, Arterial 0.7 % [facility] Comment: Nonsmokers: 0.5-1.5% COHB Smokers: Variable, but usually less than 10% Toxic: 20-30% COHB Lethal: Greater than 60% COHB Methemoglobin, Arterial 0.3 <=1.5 % [facility] Na Whole Blood 134(L) 135 - 145 mmol/L [facility] K Whole Blood 3.7 3.5 - 5.0 mmol/L [facility] Comment: Please note: Patients with WBC >100,000 may have falsely elevated Potassium levels. Contact the Clinical Chemistry Laboratory if there are any questions. ICa Whole Blood 1.16 1.15 - 1.33 mmol/L [facility] Comment: Note: ??Total bilirubin higher than 20 mg/dL may lead to falsely low ionized calcium. CL Whole Blood 103 98 - 107 mmol/L [facility] Gluc Whole Bld 126 65 - 199 mg/dL [facility] Comment:Diabetes: >=200 mg/d L plus symptoms. Lactate WB 1.6 0.5 - 2.2 mmol/L [facility] FIO2 Art 60 % [facility] PF Ratio Art 203 [facility] Blood specimen (specimen) 02/01/2019 4:14 AM EDT 02/01/2019 4:14 AM EDT Anabel Duncan MD POINT OF CARE TEST O RDERABLES Performing Organization Address City/State/[facility] Co de Phone Number [facility] [place] [address] * Heparin (unfractionated) Level (02/01/2019 3:10 AM EDT) UF Heparin 0.17 IU/mL [facility] Comment: Guidelines for therapeutic [...] Lab Anabel Duncan MD HEMATOLOGY ORDERABLE S [facility] [place] [address] * (ABNORMAL) Differential, Automated (02/01/2019 3:10 AM EDT) Neutrophil % 77.6 % [facility] Neutrophil Absolute 8.18(H) 1.70 - 6.10 x10(3)/ L [facility] Lymph % 11.9 % [facility] Lymphocytes Abs 1.2 0.9 - 3.2 x10(3)/ L [facility] Monocyte % 8.5 % [facility] Monocyte Abs 0.9 0.3 - 0.9 x10(3)/ L [facility] Eos % 1.2 % [facility] Eosinophils Abs 0.1 0.0 - 0.4 x10(3)/[facility] Basophil % 0.4 % [facility] [...] Lab Anabel Duncan MD HEMATOLOGY ORDERABLE S [facility] [place] [address] * (ABNORMAL) Hemogram (02/01/2019 3:10 AM EDT) White Blood Cell 10.5(H) 4.0 - 9.5 x10(3)/mc L [facility] Red Blood Cell 4.33(L) 4.58 - 5.54 x10(6)/mc L [facility] Hemoglobin 13.5(L) 13.7 - 16.5 gm/dL [facility] Hematocrit 39.7(L) 40.5 - 48.5 % [facility] Mean Cell Volume 91.7 82.9 - 93.1 fL [facility] Mean Cell Hemoglobin 31.2 27.5 - 32.1 pg [facility] Mean Cell Hemoglobin Concentration 34.0 32.0 - 35.7 gm/dL [facility] Platelet 215 145 - 357 x10(3)/mc L [facility] RDW Standard Deviation 45.5(H) 36.0 - 45.0 fL [facility] RDW coefficient of variation 13.8 11.4 - 13.8 % [facility] Mean Platelet Volume 10.0 7.6 - 12.9 fL [facility] NRBC% auto 0.0 % [facility] NRBC Absolute 0.000 0.000 - 0.000 x10(3)/mc L [facility] Blood specimen (specimen) 02/01/2019 3:10 AM EDT 02/01/2019 3:20 AM EDT Narrative Resulting Agency Comment Spec In Lab Anabel Duncan MD HEMATOLOGY ORDERABLE S [facility] [place] [address] * (ABNORMAL) Basic Metabolic Panel (non-fasting) (02/01/2019 3:10 AM EDT) Glucose 116 65 - 199 mg/dL [facility] Comment:Diabetes: >=200 mg/d L plus symptoms Blood Urea Nitrogen 29(H) 10 - 20 mg/dL [facility] Creatinine 1.66(H) 0.80 - 1.50 mg/dL [facility] Sodium 140 135 - 145 mmol/L [facility] [...] [facility] Anion Gap 11 5 - 15 mmol/L [facility] Calcium 7.1(L) 8.5 - 10.5 mg/dL [facility] Comment:result rechecked- Est Glomerular Filtration Rate 41(L) >=60 mL/min/1. 73 m?? [facility] Comment: The eGFR was calculated using the CKD-EPI equation. As with all creatinine based estimates of kidney function, eGFR values calculated with the CKD-EPI equation are not accurate in patients with acute kidney failure, extremes of body mass or the acutely ill. http://[employer]/[facility] eGFR 48(L) >=60 mL/min/1. 73 m?? [facility] Comment: The eGFR was calculated using the CKD-EPI equation. As with all creatinine based estimates of kidney function, eGFR values calculated with the CKD-EPI equation are not accurate in patients with acute kidney failure, extremes of body mass or the acutely ill. http://[employer]/[facility]MCnkf Blood specimen (specimen) 02/01/2019 3:10 AM EDT 02/01/2019 3:20 AM EDT Narrative Resulting Agency Comment Spec In Lab Anabel Duncan MD CHEMISTRY ORDERABLES Performing Organization Address City/[facility]/ZIP Co de Phone Number [facility] [place] [address] * EKG 12 Lead (02/01/2019 1:00 AM EDT) Pathologist [facility] Ventricular rate 63 BPM MUSE SYSTEM Atrial Rate 63 BPM MUSE SYSTEM P-R Interval 184 ms MUSE SYSTEM QRS Duration 108 ms MUSE SYSTEM Q-T Interval 442 ms MUSE SYSTEM QTC Calculated (Bezet) 452 ms MUSE SYSTEM Calculated P [place] 72 degrees MUSE SYSTEM Calculated R [place] -54 degrees MUSE SYSTEM Calculated T [place] 118 degrees MUSE SYSTEM INTERPRETATION Sinus rhythm with Premature atrial complexes Left axis deviation ST & T wave abnormality, consider anterolateral ischemia Abnormal ECG When compared with ECG of 31-JAN-2019 18:31, (unconfirmed) Atrial bigeminy is no longer present Confirmed by MD Jonatan, Guille Almonte ([id number]) on 02/01/2019 3:56:21 PM MUSE SYSTEM 02/01/2019 1:00 AM EDT 02/01/2019 3:56 PM EDT Nadia Haider APRN ECG ORDERABLES Performing Organization Address [facility] Co de Phone Number MUSE SYSTEM * (ABNORMAL) Troponin (01/31/2019 11:33 PM EDT) [facility] Troponin-T 0.07(H) 0.00 - 0.00 ng/mL [facility] Comment: The 99th percentile for Troponin T is less than 0.01 ng/mL, any detectable cTnT concentration using this assay should be considered elevated. According to the third universal definition of myocardial infarction the following criteria with a clinical presentation consistent with acute myocardial ischemia meets the diagnosis for a myocardial infarction ([place]). Detection of a rise and/or fall of cTnT, with at least one value greater than the 99th percentile (> or = 0.01) and with at least one of the following ?? Symptoms of ischemia ?? New or presumed new significant UE-ekjdpmv-G wave (ST-T) changes or new left bundle [...] additional sample may be indicated. Reference: Third [place] Definition of Myocardial Infarction. Journal of the [place] [employer] 2012;60:1581-98 Blood specimen (specimen) 01/31/2019 11:33 PM EDT 01/31/2019 11:36 PM EDT Narrative Resulting Agency Comment Spec In Lab Anabel Duncan MD CHEMISTRY ORDERABLES [facility] [place] [address] * XR Chest PA or AP 1 [...] Glucose, POC 145 65 - 199 mg/dL [facility] Comment: Supplemental ranges: <140 mg/dL before meals <180 mg/dL all other times of the day Blood specimen (specimen) 01/31/2019 8:50 PM EDT 01/31/2019 8:50 PM EDT Anabel Duncan MD POINT OF CARE TEST O RDERABLES [facility] [place] [address] * (ABNORMAL) Differential, Automated (01/31/2019 8:36 PM EDT) Neutrophil % 81.4 % [facility] Neutrophil Absolute 9.84(H) 1.70 - 6.10 x10(3)/ L [facility] Lymph % 8.6 % [facility] Lymphocytes Abs 1.0 0.9 - 3.2 x10(3)/[facility] Monocyte % 8.5 % [facility] Monocyte Abs 1.0(H) 0.3 - 0.9 x10(3)/[facility] Eos % 0.8 % [facility] Eosinophils Abs 0.1 0.0 - 0.4 x10(3)/[facility] Basophil % 0.3 % [facility] Baso Absolute 0.0 0.0 - 0.1 x10(3)/[facility] Immature Gran % 0.40 % [facility] Comment: Immature granulocytes(IG's)percentage and absolute count will include metamyelocytes, myelocytes, and promyelocytes. Blood smears from CBCs yielding IG's will be scanned manually for concordance. If this scan disagrees with the automated IG or if promyelocytes are noted, a manual differential will be performed. Immature Gran Absolute 0.05(H) 0.00 - 0.04 x10(3)/[facility] Blood specimen (specimen) 01/31/2019 8:36 PM EDT 01/31/2019 8:40 PM EDT Narrative Resulting Agency Comment Spec In Lab Anabel Duncan MD HEMATOLOGY ORDERABLE S [facility] [place] [address] * (ABNORMAL) Hemogram (01/31/2019 8:36 PM EDT) White Blood Cell 12.1(H) 4.0 - 9.5 x10(3)/mc L [facility] Red Blood Cell 4.84 4.58 - 5.54 x10(6)/mc L [facility] Hemoglobin 15.2 13.7 - 16.5 gm/dL [facility] Hematocrit 44.7 40.5 - 48.5 % [facility] Mean Cell Volume 92.4 82.9 - 93.1 fL [facility] Mean Cell Hemoglobin 31.4 27.5 - 32.1 pg [facility] Mean Cell Hemoglobin Concentration 34.0 32.0 - 35.7 gm/dL [facility] Platelet 238 145 - 357 x10(3)/[facility] RDW Standard Deviation 45.2(H) 36.0 - 45.0 [facility] RDW coefficient of variation 13.6 11.4 - 13.8 % [facility] Mean Platelet Volume 9.3 7.6 - 12.9 [facility] NRBC% auto 0.0 % [facility] NRBC Absolute 0.000 0.000 - 0.000 x10(3)/[facility] Blood specimen (specimen) 01/31/2019 8:36 PM EDT 01/31/2019 8:40 PM EDT Narrative Resulting Agency Comment Spec In Lab Anabel Duncan MD HEMATOLOGY ORDERABLE S [facility] [place] [address] * Heparin (unfractionated) Level (01/31/2019 8:36 PM EDT) UF Heparin <0.04 IU/mL [facility] Comment: Guidelines for therapeutic [...] MD HEMATOLOGY ORDERABLE S Performing Organization Address [facility] Co de Phone Number [facility] [place] [address] * EKG 12 Lead (01/31/2019 4:28 PM EDT) Ventricular rate 70 BPM MUSE SYSTEM Atrial Rate 70 BPM MUSE SYSTEM P-R Interval 218 ms MUSE SYSTEM QRS Duration 106 ms MUSE SYSTEM Q-T Interval 416 ms MUSE SYSTEM QTC Calculated (Bezet) 449 ms MUSE SYSTEM Calculated P [place] 46 degrees MUSE SYSTEM Calculated R [place] -61 degrees MUSE SYSTEM Calculated T [place] 131 degrees MUSE SYSTEM INTERPRETATION Sinus rhythm with 1st degree A-V block Occasional Premature ventricular complexes and Premature atrial complexes Left axis deviation ST & T wave abnormality, consider anterolateral ischemia Abnormal ECG When compared with ECG of 31-JAN-2019 11:21, (unconfirmed) Sinus rhythm has replaced Atrial flutter T wave inversion now evident in Anterior leads Confirmed by MD Jonatan, Guille Almonte ([id number]) on 02/01/2019 3:45:40 PM MUSE SYSTEM 01/31/2019 4:28 PM EDT 02/01/2019 3:45 PM EDT Anabel Duncan MD ECG ORDERABLES MUSE SYSTEM * CK (01/31/2019 4:20 PM EDT) Creatine Kinase 127 0 - 200 unit/L [facility] LABORATORY Blood specimen (specimen) Venous Draw / Unknown 01/31/2019 4:20 PM EDT 01/31/2019 6:02 PM EDT Narrative Resulting Agency Comment Spec In Lab Anabel Duncan MD CHEMISTRY ORDERABLES [facility] [place] [address] * Lavender Tube HOLD (01/31/2019 4:20 PM EDT) Lavender Hold Sample in lab. [facility] Blood specimen (specimen) Venous Draw / Unknown 01/31/2019 4:20 PM EDT 01/31/2019 4:37 PM EDT Rocky Wong MD HEMATOLOGY ORDERABL ES Performing Organization Address [facility] Co de Phone Number [facility] [place] [address] * (ABNORMAL) Basic Metabolic Panel (non-fasting) (01/31/2019 4:20 PM EDT) Glucose 131 65 - 199 mg/dL [facility] Comment:Diabetes: >=200 mg/d L plus symptoms Blood Urea Nitrogen 28(H) 10 - 20 mg/dL [facility] Creatinine 2.12(H) 0.80 - 1.50 mg/dL [facility] Sodium 139 135 - 145 mmol/L [facility] [...] mmol/L [facility] Calcium 9.6 8.5 - 10.5 mg/dL [facility] Est Glomerular Filtration Rate 31(L) >=60 mL/min/1. 73 m?? [facility] Comment: The eGFR was calculated using the CKD-EPI equation. As with all creatinine based estimates of kidney function, eGFR values calculated with the CKD-EPI equation are not accurate in patients with acute kidney failure, extremes of body mass or the acutely ill. http://[employer]/[facility] eGFR 35(L) >=60 mL/min/1. 73 m?? [facility] Comment: The eGFR was calculated using the CKD-EPI equation. As with all creatinine based estimates of kidney function, eGFR values calculated with the CKD-EPI equation are not accurate in patients with acute kidney failure, extremes of body mass or the acutely ill. http://[employer]/[facility] Blood specimen (specimen) 01/31/2019 4:20 PM EDT 01/31/2019 4:37 PM EDT Narrative Resulting Agency Comment Spec In Lab Anabel Duncan MD CHEMISTRY ORDERABLES [facility] [place] [address] * (ABNORMAL) Troponin (01/31/2019 4:20 PM EDT) Troponin-T 0.04(H) 0.00 - 0.00 ng/mL [facility] Comment: Called by: MANE, [...] meets the diagnosis for a myocardial infarction ([place]). Detection of a rise and/or fall of cTnT, with at least one value greater than the 99th percentile (> or = 0.01) and with at least one of the following ?? Symptoms of ischemia ?? New or presumed new significant AY-prkcwhh-V wave (ST-T) changes or new left bundle [...] additional sample may be indicated. Reference: Third [place] Definition of Myocardial Infarction. Journal of the [place] [employer] 2012;60:1581-98 Blood specimen (specimen) 01/31/2019 4:20 PM EDT 01/31/2019 4:37 PM EDT Narrative Resulting Agency Comment Spec In Lab Mundo Yeung MD CHEMISTRY ORDERABLES [facility] [place] [address] * US Renal Transplant Left (01/31/2019 2:34 [...] 02:47 pm) PATIENT INFO: ID #: ? [id number] ? : [birth year] (68 yrs) Name: ? ETHEL BOLDEN ? Visit Date:01/31/2019 02:30 pm PERFORMED BY: Performed By: ? Osmar Dowd RDMS Attending: ?Kerry GERBER, Jolly Toth Referred By: ?MUNDO YEUNG Location: ? [place] SERVICE(S) PROVIDED: ??URTPL - Renal Transplant - Left - [id number] ?[id number] INDICATIONS: ??h/o kidney transplant in 2016. decreased [...] ?Patent Mid: ? Patent Distal: ?Patent LEFT [place] Iliac ? Waveform ?? Artery To Anastomos ?is Proximal: ?Patent LEFT [place] Iliac ? Waveform ?Vein To Anastomos ?is Proximal: ?Patent PARENCHYMAL EVALUATION: RIGHT ?Arcuate ? RI ??Waveform ?Artery Upper Pole: ?0.6 Patent Mid Pole: ?0.6 Patent Lower Pole: ?0.6 Patent URINARY BLADDER: Comment: ?Partially distended and unremarkable. Procedure Note Jolly Payne MD - 01/31/2019 Transplant (Signed Final 01/31/2019 02:47pm) PATIENT INFO: ID #: [id number] : 46 (68 yrs) Name: ETHEL BOLDEN Visit Date:01/31/2019 02:30 pm PERFORMED BY: Performed By: Osmar Dowd RDMS Attending: Jolly Payne MD Referred By: MUNDO YEUNG Location: [place] SERVICE(S) PROVIDED: URTPL - Renal Transplant - Left - [id number] INDICATIONS: h/o kidney transplant in 2016. decreased [...] Proximal: Patent Mid: Patent Distal: Patent LEFT [place] Iliac Waveform Artery To Anastomos is Proximal: Patent LEFT [place] Iliac Waveform Vein To Anastomos is Proximal: [...] - 3 /HPF [facility] Urine specimen (specimen) 01/31/2019 11:57 AM EDT 01/31/2019 12:34 PM EDT Narrative Resulting Agency Comment Spec In Lab Rocky Wong MD URINE ORDERABLES [facility] [place] [address] * Gold Tube HOLD (01/31/2019 11:57 AM EDT) Gold Hold Sample in lab. [facility] Blood specimen (specimen) Venous Draw / Unknown 01/31/2019 11:57 AM EDT 01/31/2019 12:31 PM EDT Rocky Wong MD CHEMISTRY ORDERABLE S Performing Organization Address City/[facility]/ZIP Co de Phone Number [facility] [place] [address] * Blue Tube HOLD (01/31/2019 11:57 AM EDT) Blue Hold Sample in lab. [facility] Blood specimen (specimen) Venous Draw / Unknown 01/31/2019 11:57 AM EDT 01/31/2019 12:32 PM EDT Rocky Wong MD HEMATOLOGY ORDERABL ES [facility] [place] [address] * (ABNORMAL) Differential, Automated (01/31/2019 11:57 AM EDT) Neutrophil % 74.9 % [facility] Neutrophil Absolute 8.74(H) 1.70 - 6.10 x10(3)/ L [facility] Lymph % 15.8 % [facility] Lymphocytes Abs 1.8 0.9 - 3.2 x10(3)/[facility] Monocyte % 7.6 % [facility] Monocyte Abs 0.9 0.3 - 0.9 x10(3)/ L [facility] Eos % 1.0 % [facility] Eosinophils Abs 0.1 0.0 - 0.4 x10(3)/[facility] Basophil % 0.4 % [facility] [...] [facility] Blood specimen (specimen) 01/31/2019 11:57 AM EDT 01/31/2019 12:30 PM EDT Narrative Resulting Agency Comment Spec In Lab Rocky Wong MD HEMATOLOGY ORDERABL ES [facility] [place] [address] * (ABNORMAL) Hemogram (01/31/2019 11:57 AM EDT) White Blood Cell 11.7(H) 4.0 - 9.5 x10(3)/mc L [facility] Red Blood Cell 5.41 4.58 - 5.54 x10(6)/mc L [facility] Hemoglobin 17.0(H) 13.7 - 16.5 gm/dL [facility] Hematocrit 49.8(H) 40.5 - 48.5 % [facility] Mean Cell Volume 92.1 82.9 - 93.1 fL [facility] Mean Cell Hemoglobin 31.4 27.5 - 32.1 pg [facility] Mean Cell Hemoglobin Concentration 34.1 32.0 - 35.7 gm/dL [facility] Platelet 295 145 - 357 x10(3)/mc L [facility] RDW Standard Deviation 46.0(H) 36.0 - 45.0 fL [facility] RDW coefficient of variation 13.9(H) 11.4 - 13.8 % [facility] Mean Platelet Volume 9.9 7.6 - 12.9 fL [facility] NRBC% auto 0.0 % [facility] NRBC Absolute 0.000 0.000 - 0.000 x10(3)/mc L [facility] Blood specimen (specimen) 01/31/2019 11:57 AM EDT 01/31/2019 12:30 PM EDT Narrative Resulting Agency Comment Spec In Lab Rocky Wong MD HEMATOLOGY ORDERABL ES [facility] [place] [address] * Electrolytes, urine, random (01/31/2019 11:57 AM EDT) Sodium, Urine <20 mmol/L [facility] Potassium, Urine 39 mmol/L [facility] Chloride, Urine <20 mmol/L [facility] Urine specimen (specimen) 01/31/2019 11:57 AM EDT 01/31/2019 12:34 PM EDT Narrative Resulting Agency Comment Spec In Lab Mundo Yeung MD URINE ORDERABLES [facility] [place] [address] * (ABNORMAL) Troponin (01/31/2019 11:57 AM EDT) Troponin-T 0.03(H) 0.00 - 0.00 ng/mL [facility] Comment: Called by: GIACOMO, [...] meets the diagnosis for a myocardial infarction ([place]). Detection of a rise and/or fall of cTnT, with at least one value greater than the 99th percentile (> or = 0.01) and with at least one of the following ?? Symptoms of ischemia ?? New or presumed new significant VA-rvjxsec-U wave (ST-T) changes or new left bundle [...] additional sample may be indicated. Reference: Third [place] Definition of Myocardial Infarction. Journal of the [place] College [employer]iology 2012;60:1581-98 Blood specimen (specimen) 01/31/2019 11:57 AM EDT 01/31/2019 12:30 PM EDT Narrative Resulting Agency Comment Spec In Lab Mundo Yeung MD CHEMISTRY ORDERABLES Performing Organization Address City/[facility]/ZIP Co de Phone Number [facility] [place] [address] * (ABNORMAL) Urinalysis with reflex Culture (01/31/2019 [...] pH, Urn (dipstick) 5.0 5.0 - 8.0 [facility] Blood, Urine Dipstick Negative Negative mg/dL [facility] Ketone, Urine Dipstick Negative Negative mg/dL [facility] Nitrite, Urine Dipstick Negative Negative [facility] Leukocytes, Urine Dipstick Negative Negative [facility] Appearance, Urine Dipstick Clear Clear [facility] Specific [place] Urine Automated 1.023 1.002 - 1.030 [facility] Color, Urine Dipstick Yellow Yellow [facility] Reflex to Culture No [facility] Urine specimen (specimen) 01/31/2019 11:57 AM EDT 01/31/2019 12:34 PM EDT Narrative Resulting Agency Comment Spec In Lab Mundo Yeung MD URINE ORDERABLES Performing Organization Address City/[facility]/ZIP Co de Phone Number [facility] [place] [address] * (ABNORMAL) Basic Metabolic Panel (non-fasting) (01/31/2019 11:57 AM EDT) Glucose 151 65 - 199 mg/dL [facility] Comment:Diabetes: >=200 mg/d L plus symptoms Blood Urea Nitrogen 29(H) 10 - 20 mg/dL [facility] Creatinine 1.82(H) 0.80 - 1.50 mg/dL [facility] Sodium 136 135 - 145 mmol/L [facility] Potassium 4.1 3.5 - 5.0 mmol/L [facility] [...] mmol/L [facility] Calcium 10.1 8.5 - 10.5 mg/dL [facility] Est Glomerular Filtration Rate 37(L) >=60 mL/min/1. 73 m?? [facility] Comment: The eGFR was calculated using the CKD-EPI equation. As with all creatinine based estimates of kidney function, eGFR values calculated with the CKD-EPI equation are not accurate in patients with acute kidney failure, extremes of body mass or the acutely ill. http://[employer]/[facility] eGFR 43(L) >=60 mL/min/1. 73 m?? [facility] Comment: The eGFR was calculated using the CKD-EPI equation. As with all creatinine based estimates of kidney function, eGFR values calculated with the CKD-EPI equation are not accurate in patients with acute kidney failure, extremes of body mass or the acutely ill. http://[employer]/[facility] Blood specimen (specimen) 01/31/2019 11:57 AM EDT 01/31/2019 12:30 PM EDT Narrative Resulting Agency Comment Spec In Lab Mundo Yeung MD CHEMISTRY ORDERABLES [facility] [place] [address] * EKG 12 Lead (01/31/2019 11:21 AM EDT) Ventricular rate 147 BPM MUSE SYSTEM Atrial Rate 294 BPM MUSE SYSTEM QRS Duration 100 ms MUSE SYSTEM Q-T Interval 334 ms MUSE SYSTEM QTC Calculated (Bezet) 522 ms MUSE SYSTEM Calculated R [place] -58 degrees MUSE SYSTEM Calculated T [place] 68 degrees MUSE SYSTEM INTERPRETATION Atrial flutter with 2:1 A-V conduction Left anterior fascicular block Nonspecific ST and T wave abnormality Abnormal ECG When compared with ECG of 04-NOV-2017 12:43, Significant changes have occurred Confirmed by MD SARA, LARRY ([id number]) on 01/31/2019 5:35:44 PM MUSE SYSTEM 01/31/2019 11:2 1 AM EDT 01/31/2019 5:35 PM EDT Mundo Yeung MD ECG ORDERABLES Performing Organization Address City/[facility]/ZIP Co de Phone Number MUSE SYSTEM documented [...] Purdy RN) 0936 (Given - Provider: Shannan Aguillon RN) [...] Emmy Purdy RN)1749 (Given - Provider: Emmy Purdy, RN)2337 (Given - Provider: Jovanna Abrams, JADEN) 0607 (Given - Provider: Jovanna Abrams, JADEN) mycophenolate (CELLCEPT) capsule 250 mg 250 mg, Oral, 2 TIMES DAILY, First dose on Thu01/31/19 at 2100, Until Discontinued, DO NOT CRUSH OR OPEN Administer to patient on empty stomach (1 hour before or two hours after a meal)., Routine 0920 (Given - Provider: Barron Epstein RN)204 (Given - Provider: Betzaida Sparks RN) 0823 (Given - Provider: Emmy Purdy RN)215 (Given - Provider: Jovanna Abrams, JADEN) 0936 [...] 0916 (Given - Provider: Barron Epstein, RN) 08 (Given - Provider: Emmy Purdy, RN) [...] Routine documented in this encounter Care Teams Lard Bleacher Relationship Specialty Start Date End Date Urbano Denis DO [address] [place] [address] [address] [facility] [address] [place] [address] PCP - General 09/03/12 03/17/22 Ruchi Valles RN Nurse Clinic Transplant Surgery 07/30/15 documented as of this encounter
--- OUTSIDE RECORDS SUMMARY | 2024-05-16 17:25 | XMS_ITS | Encounter Summary ---
Author Organization [facility] [place] [address] Care Team Providers Care Farm Owner Operator Name Role Phone AdeelUrbano boland Primary Care Provider Encounter Details Date Type Department Care Team (Late st Contact Info) Description 2018 Abstract [place] [address] Tim Miles LPN Social History [...] EST TH Visit (TeleHealth) Cardiology at [address] [address] Byron Brown MD [facility] [place] [address] 07/14/2024 10:00 AM EST Hospital Encounter Non[place] [address] Arrived documented as of this encounter Goals [...] filedocumented in this encounter Care Teams Farm Owner Operator Relationship Specialty Start Date End Date Urbano Denis DO [address] [place] [address] [address] [place] [address] PCP - General 09/03/12 03/17/22 Ruchi Valles RN Nurse Clinic Transplant Surgery 07/30/15 documented as of this encounter
--- OUTSIDE RECORDS SUMMARY | 2024-05-16 17:25 | XMS_ITS | Encounter Summary ---
Author Organization [facility] [place] [address] Care Team Providers Care Ship'S Cook Name Role Phone Urbano Denis DO Primary Care Provider [phone] Reason for Visit * Auth/Cert Specialty Diagnoses / Procedures Referred By Humberto flor Referred To Contact Diagnoses Paroxysmal atrial fibrillation Atrial fibrillation with RVR Referral ID Status Reason Start Date Expiration Date Visits Re quested Visits Authorized [id number] 1 1 Encounter Details Date Type Department Care Team (Late st Contact Info) Description 01/31/2019 10:20 AM EDT Office Visit [place] [address] Tal Eagle MD [facility] [place] [address] Hypotensive episode; H/O kidney transplant Social History [...] AM EDT Pt sent to ED by Brand Inspector. Symptomatic with c/o of dizziness when standing [...] AM EST TH Visit (TeleHealth) Cardiology at [address] [address] Byron Brown MD [facility] [place] [address] 07/14/2024 10:00 AM EST Hospital Encounter Non-[place] [address] Arrived documented as of this encounter Goals Goal Patient Goal Type Associated Problems Recent Progress Patient-Stated? Author [facility] Medication Compliance and Understanding Patient Facing Action Plan On track( 017 10:41 AM EDT) Selena Scott, [facility] Note: Patient Goal: Clear hepatitis C Timeframe to meet goal: within 12 weeks of therapy documented as of this encounter Visit Diagnoses Diagnosis Hypotensive episode Hypotension, unspecified H/O kidney transplant Kidney replaced by transplant documented in this encounter Care Teams Ship'S Cook Relationship Specialty Start Date End Date Urbano Denis DO [address] [place] [address] PCP - General 09/03/12 03/17/22 Ruchi Valles RN Nurse Clinic Transplant Surgery 07/30/15 documented as of this encounter
--- OUTSIDE RECORDS SUMMARY | 2024-05-16 17:25 | XMS_ITS | Encounter Summary ---
Author Organization Formerly [facility] [place] [address] Care Team Providers Care Rail Layer Name Role Phone Adeel Urbano KIRBY Primary Care Provider [phone] Encounter Details Date Type Department Care Team (Latest Contact Info) Description 09/15/2018 10:40 AM EDT Office Visit [place] [address] Tal Eagle MD [facility] [place] [address] Kidney replaced by transplant; Vitamin D deficiency [...] for diabetics, every 5 for non diabetics [place] kidney ultrasound looking for renal cell CA, [...] load undetectable after treatment in June ?? [id number] labs f/u in 1 year . Thanks [...] min in direct face to face assistant counsel. Abdirahman Chiu Nephrology Fellow I reviewed all of the above findings and assessment of Dr. Chiu, edited the above note to reflect my assessment and examination and formulated the recommendations which accurately reflect mine. documented in this encounter Plan of Treatment Upcoming Encounters Date Type Department Care Team (Late st Contact Info) Description 06/22/2024 11:00 AM EST Visit (TeleHealth) Cardiology at [address] [address] Byron Brown MD [facility] [place] [address] 07/14/2024 10:00 AM EST Hospital Encounter Non[place] [address] Arrived documented as of this encounter Goals Goal Patient Goal Type Associated Problems Recent Progress Patient-Stated? Author [facility] Medication Compliance and Understanding Patient Facing Action Plan On track( 017 10:41 AM EDT) No Selena Cisneros, [facility] Note: Patient Goal: Clear hepatitis C Timeframe to meet goal: within 12 weeks of therapy documented as of this encounter Results * (ABNORMAL) Vitamin D, 25-Hydroxy (09/15/2018 9:53 AM EDT) Vitamin D Total 25 OH 19(L) 30 - 100 ng/mL [facility] [...] be considered to be insufficient or deficient. http://The Old Reader.[employer]/nkf-guidelines http://The Old Reader.[employer]/nejm-VitD The IDS iSYS Vitamin D Immunoassay detects both 25-OH Vitamin D2 and 25-OH Vitamin D3, but only a total Vitamin D concentration is reported. Blood specimen (specimen) 09/15/2018 9:53 AM EDT 09/15/2018 12:08 PM EDT Narrative Resulting Agency Comment Spec In Lab Tal Eagle MD CHEMISTRY ORDERAB LES Performing Organization Address [facility] Co de Phone Number [facility] [address] * Uric acid (09/15/2018 9:53 AM EDT) Uric Acid 8.1 3.5 - 8.5 mg/dL [facility] Blood specimen (specimen) 09/15/2018 9:53 AM EDT 09/15/2018 10:01 AM EDT Narrative Resulting Agency Comment Spec In Lab Tal Eagle MD CHEMISTRY ORDERAB LES Performing Organization Address [facility] Co de Phone Number [facility] [address] * Tacrolimus level (09/15/2018 9:53 AM EDT) Tacrolimus 7.8 ng/mL [facility] Comment: Trough therapeutic: ??5-15 ng/mL [...] MD CHEMISTRY ORDERAB LES Performing Organization Address [facility] Co de Phone Number [facility] [address] * Reticulocyte Count (09/15/2018 9:53 AM EDT) Reticulocyte % 2.0 0.7 - 2.6 % [facility] Retic Abs # 0.110 0.030 - 0.120 x10(6)/mcL [facility] Immature Retic% 8.1 0.0 - 15.6 % [facility] Reticulated Hgb 35.9 31.3 - 40.2 pg [facility] Blood specimen (specimen) 09/15/2018 9:53 AM EDT 09/15/2018 10:01 AM EDT Narrative Resulting Agency Comment Spec In Lab Tal Eagle MD HEMATOLOGY ORDERA BLES Performing Organization Address [facility] Co de Phone Number [facility] [address] * (ABNORMAL) PTH (09/15/2018 9:53 AM EDT) Parathyroid Hormone 78(H) 15 - 65 pg/mL [facility] Blood specimen (specimen) 09/15/2018 9:53 AM EDT 09/15/2018 10:01 AM EDT Narrative Resulting Agency Comment Spec In Lab Tal Eagle MD CHEMISTRY ORDERAB LES Performing Organization Address [facility] Co de Phone Number [facility] [address] * Phosphorus (09/15/2018 9:53 AM EDT) Phosphorus 3.2 2.5 - 4.5 mg/dL [facility] Blood specimen (specimen) 09/15/2018 9:53 AM EDT 09/15/2018 10:01 AM EDT Narrative Resulting Agency Comment Spec In Lab Tal Eagle MD CHEMISTRY ORDERAB LES Performing Organization Address City/[facility]/ZIP Co de Phone Number [facility] [address] * Magnesium (09/15/2018 9:53 AM EDT) Magnesium 0.71 0.69 - 1.07 mmol/L [facility] Blood specimen (specimen) 09/15/2018 9:53 AM EDT 09/15/2018 10:01 AM EDT Narrative Resulting Agency Comment Spec In Lab Tal Eagle MD CHEMISTRY ORDERAB LES Performing Organization Address [facility] Co de Phone Number [facility] [address] * Lipid Panel (09/15/2018 9:53 AM EDT) Cholesterol, Total 151 mg/dL [facility] Comment: Lower Risk: <200 mg/dL Average Risk: 200-239 mg/dL Higher Risk: >yh=762 mg/dL Triglyceride 166 mg/dL [facility] Comment: Average Risk/Lower Risk: <150 mg/dL Borderline High Risk: 150-199 mg/dL High Risk: 200-499 mg/dL Very High Risk: >xx=737 mg/dL HDL Cholesterol 40 mg/dL [facility] Comment: Males: ?? Higher Risk: <40 mg/dL Females: ?? HIgher Risk: <50 mg/dL LDL Cholesterol 78 mg/dL [facility] Comment: Lowest Risk: <100 mg/dL Lower Risk: 100-129 mg/dL Borderline High Risk: 130-159 mg/dL High Risk: 160-189 mg/dL Very High Risk: >so=603 mg/dL Cholesterol/HDL Ratio 3.8 ratio [facility] Lipid Interpretation See Note [facility] Comment: Lipid management should be guided by a patient? s ASCVD risk, goals and preferences. ACC/AHA Guidelines recommend high intensity statin if clinical ASCVD or LDL greater than or equal to 190 mg/dL. http://ID.meurl.com/GDN-XEX-Wmcogbmte Adults aged 40-75 with LDL 70-189 mg/dL should have their 10 year ASCVD risk estimated with the ACC/AHA ASCVD risk de icer element winder http://tools.acc.org/LYLBZ-Mpxq-Uhqnwqjmr/ Statin should be discussed if risk greater [...] MD CHEMISTRY ORDERAB LES Performing Organization Address [facility]/ZIP Co de Phone Number [facility] [address] * Lavender Tube HOLD (09/15/2018 9:53 AM EDT) Lavender Hold Sample in lab. [facility] Blood specimen (specimen) 09/15/2018 9:53 AM EDT 09/15/2018 10:01 AM EDT Tal Eagle MD HEMATOLOGY ORDERA BLES Performing Organization Address [facility]/ZIP Co de Phone Number [facility] [address] * (ABNORMAL) Hemoglobin A1c (09/15/2018 9:53 AM [...] Mellitus, Diabetes Care 2013; 36: Suppl. 1, I27-34 Estimated Average Glucose See note mg/dL [facility] [...] into estimated average glucose values. ??Diabetes Care 2008:31(8):0715-2435. Blood specimen (specimen) 09/15/2018 9:53 AM EDT 09/15/2018 10:01 AM EDT Narrative Resulting Agency Comment Spec In Lab Tal Eagle MD CHEMISTRY ORDERAB LES [facility] [address] * Gold Tube HOLD (09/15/2018 9:53 AM EDT) Gold Hold Sample in lab. [facility] Blood specimen (specimen) 09/15/2018 9:53 AM EDT 09/15/2018 10:00 AM EDT Tal Eagle MD CHEMISTRY ORDERAB LES [facility] [address] * (ABNORMAL) CMP w/fasting Glucose (09/15/2018 9:53 AM EDT) Glucose Fasting 151(H) 65 - 99 mg/dL [facility] [...] of Diabetes Mellitus, Position Statement from the [place] [employer]. ??Diabetes Care, Volume 33, Supplement 1, Jul 2009 Blood Urea Nitrogen 18 10 - 20 mg/dL [facility] Creatinine 1.23 0.80 - 1.50 mg/dL [facility] Sodium 140 135 - 145 mmol/L [facility] Potassium 3.8 3.5 - 5.0 mmol/L [facility] Comment: Please note: ??Patients with WBC >100,000 may have falsely elevated Potassium levels. ??For accurate Potassium quantification in these patients send serum separator tube (gold top) for subsequent determinations. ??Contact the Clinical Chemistry Laboratory if there are any questions. Chloride 97(L) 98 - 107 mmol/L [facility] Carbon Dioxide 32(H) 22 - 31 mmol/L [facility] Anion Gap 11 5 - 15 mmol/L [facility] Calcium 10.0 8.5 - 10.5 mg/dL [facility] Protein, Total 7.7 6.1 - 8.0 gm/dL [facility] Albumin 4.3 3.2 - 5.2 gm/dL [facility] Aspartate Aminotransferase 20 0 - 39 unit/L [facility] Alanine Aminotransferase 22 0 - 55 unit/L [facility] Alkaline Phosphatase 78 40 - 120 unit/L [facility] Bilirubin, Total 2.9(H) 0.2 - 1.3 mg/dL [facility] Est Glomerular Filtration Rate 59(L) >=60 mL/min/1. 73 m?? [facility] Comment: The eGFR was calculated using the CKD-EPI equation. As with all creatinine based estimates of kidney function, eGFR values calculated with the CKD-EPI equation are not accurate in patients with acute kidney failure, extremes of body mass or the acutely ill. http://Cleanify/[facility] TULSAnkf eGFR 69 >=60 mL/min/1. 73 m?? [facility] Comment: The eGFR was calculated using the CKD-EPI equation. As with all creatinine based estimates of kidney function, eGFR values calculated with the CKD-EPI equation are not accurate in patients with acute kidney failure, extremes of body mass or the acutely ill. http://Cleanify/DHnkf Blood specimen (specimen) 09/15/2018 9:53 AM EDT 09/15/2018 10:01 AM EDT Narrative Resulting Agency Comment Spec In Lab Tal Eagle MD CHEMISTRY ORDERAB LES [facility] [address] * (ABNORMAL) 1,25-dihydroxycholecalciferol (09/15/2018 9:53 AM EDT) Vit D 1,25 Dihydroxy (NOVEMBER) 70(H) 18 - 64 pg/mL [facility] Comment: ADDITIONAL INFORMATION This test was developed and its performance characteristics determined by [facility] in a manner consistent with CLIA requirements. This test has not been cleared or approved by the U.S. Food and Drug Administration. Test Performed by: [facility] [address] [place] [address] Blood specimen (specimen) 09/15/2018 9:53 AM EDT 09/15/2018 1:05 PM EDT Narrative Resulting Agency Comment Spec In Lab Tal Eagle MD LAB SEND OUT ROCHELLE JENNINGS [facility] [address] * BKV Quant Blood (09/15/2018 9:53 AM EDT) [facility] BKV Blood Result Not Detected [facility] BKV Blood Interp BK Virus Plasma Result Interpretation Result: BK Virus not detected Specimen type: plasma Assay Range: 2.80-7.80 log copies/mL (6.28x10^2 - 6.28x10^7 copies/mL) Methods: Quantitative real-time polymerase chain reaction (PCR) of viral DNA isolated from plasma was performed using [employer] BKV analyte-specific reagents and the [employer] System that automates both nucleic acid isolation [...] [facility] [employer] (CG[facility]) Laboratory at [facility]. It has not been cleared or approved by the FDA. The laboratory is regulated under CLIA as qualified to perform high-complexity testing. This test is used for clinical purposes. It should not be regarded as investigational or for research. [facility] Comment: [VERIFIED DATE]09.23.18 Verified By:Tal Cleaning (Electronic Signature) Blood specimen (specimen) 09/15/2018 9:53 AM EDT 09/15/2018 11:12 AM EDT Narrative Resulting Agency Comment Spec In Lab Tal Eagle MD MOLECULAR ORDERAB LES [facility] [address] * (ABNORMAL) Urinalysis with reflex Culture (09/15/2018 [...] HOSPITAL LABORATORY Leukocytes, Urine Dipstick Negative Negative [facility] Appearance, Urine Dipstick Clear Clear [facility] Specific [place] Urine Automated 1.021 1.002 - 1.030 [facility] Color, Urine Dipstick Yellow Yellow [facility] Reflex to Culture No [facility] Urine specimen obtained by clean catch procedure (specimen) 09/15/2018 9:48 AM EDT 09/15/2018 9:58 AM EDT Narrative Resulting Agency Comment Spec In Lab Tal Eagle MD URINE ORDERABLES Performing Organization Address City/[facility]/ZIP Co de Phone Number [facility] [address] * (ABNORMAL) Protein/Creatinine Ratio, urine (09/15/2018 9:48 AM EDT) Creatinine, Urine 117 mg/dL [facility] Protein, Urine 153(H) 0 - 12 mg/dL [facility] Protein / Creatinine Ratio, Urine 1.3 ratio [facility] Urine specimen (specimen) 09/15/2018 9:48 AM EDT 09/15/2018 10:00 AM EDT Narrative Resulting Agency Comment Spec In Lab Tal Eagle MD URINE ORDERABLES Performing Organization Address [facility] Co de Phone Number [facility] [address] * Phosphorus, urine, random (09/15/2018 9:48 AM EDT) Phosphorus, Urine 71.7 mg/dL [facility] Urine specimen (specimen) 09/15/2018 9:48 AM EDT 09/15/2018 2:24 PM EDT Narrative Resulting Agency Comment Spec In Lab Tal Eagle MD URINE ORDERABLES Performing Organization Address [facility] Co de Phone Number [facility] [address] * Magnesium, urine, random (09/15/2018 9:48 AM EDT) Magnesium, Urine 0.84 mmol/L [facility] Urine specimen (specimen) 09/15/2018 9:48 AM EDT 09/15/2018 10:00 AM EDT Narrative Resulting Agency Comment Spec In Lab Tal Eagle MD URINE ORDERABLES Performing Organization Address City/[facility]/ZIP Co de Phone Number [facility] [address] * Calcium Creatinine Ratio, random urine (09/15/2018 9:48 AM EDT) Calcium, Urine 6.5 mg/dL [facility] Creatinine, Urine 117 mg/dL [facility] Calcium / Creatinine Ratio, Urine 0.06 ratio [facility] Urine specimen (specimen) 09/15/2018 9:48 AM EDT 09/15/2018 2:24 PM EDT Narrative Resulting Agency Comment Spec In Lab Tal Eagle MD URINE ORDERABLES Performing Organization Address [facility] Co de Phone Number [facility] [address] documented in this encounter Visit Diagnoses Diagnosis Kidney replaced by transplant Vitamin D deficiency Unspecified vitamin D deficiency Type 2 diabetes mellitus with complication, without long-term current use of insulin Aftercare following organ transplant Prophylactic immunotherapy Need for prophylactic immunotherapy documented in this encounter Care Teams Rail Layer Relationship Specialty Start Date End Date Urbano Denis DO [address] [place] [address] PCP - General 09/03/12 03/17/22 Ruchi Valles RN Nurse [facility] Transplant Surgery 07/30/15 documented as of this encounter
--- OUTSIDE RECORDS SUMMARY | 2024-05-16 17:25 | XMS_ITS | Encounter Summary ---
Author Organization Formerly [facility] [place] [address] Care Team Providers Care Mainframe Applications Developer Name Role Phone AdeelUrbano toscano Primary Care Provider [phone] Encounter Details Date Type Department Care Team (Late st Contact Info) Description 10/07/2018 Notes Only [place] [address] Jeremiah Betancur, RN Social History [...] EST TH Visit (TeleHealth) Cardiology at [address] [address] Byron Brown MD [facility] [place] [address] 07/14/2024 10:00 AM EST Hospital Encounter Non-Invasive Cardiology Lab [facility] [place] [address] Arrived documented as of this encounter Goals [...] on filedocumented in this encounter Care Teams Mainframe Applications Developer Relationship Specialty Start Date End Date Urbano Denis DO [address] [place] [address] PCP - General 09/03/12 03/17/22 Hai STANLEY,Ruchi Nurse Clinic Transplant Surgery 07/30/15 documented as of this encounter
--- OUTSIDE RECORDS SUMMARY | 2024-05-16 17:25 | XMS_ITS | Encounter Summary ---
Author Organization [facility] Address [facility] [place] [address] Care Team Providers Care Appetizer Packer Name Role Phone AdeelUrbano toscano Primary Care Provider [phone] Reason for Visit * Reason Onset Date Comments Medication Refill 01/12/2019 Encounter Details Date Type Department Care Team (Late st Contact Info) Description 01/12/2019 Refill [place] [phone] Tal Eagle MD [facility] [place] [address] Social History Tobacco Use Types Packs/Day Years [...] EST TH Visit (TeleHealth) Cardiology at [address] [phone] Byron Brown MD [facility] [place] [address] 07/14/2024 10:00 AM [facility] Hospital Encounter Non-Invasive [place] [address] Arrived documented as of this [...] on filedocumented in this encounter Care Teams Appetizer Packer Relationship Specialty Start Date End Date Urbano Denis DO [address] [place] [address] PCP - General 09/03/12 03/17/22 Ruchi Valles RN Nurse Clinic Transplant Surgery 07/30/15 documented as of this encounter
--- OUTSIDE RECORDS SUMMARY | 2024-05-16 17:25 | XMS_ITS | Encounter Summary ---
[place] [address] Care Team Providers Care Cork Insulator Name Role Phone AdeelUrbano toscano Primary Care Provider Encounter Details Date Type Department Care Team (Late st Contact Info) Description 12/22/2018 Notes [place] [address] Yris Johnson RPH Social History [...] EST TH Visit (TeleHealth) Cardiology at [address] [address] Byron Brown MD [facility] [place] [address] 07/14/2024 10:00 AM EST Hospital Encounter Non-Invasive Cardiology Lab [facility] [place] [address] Arrived documented as of this encounter Goals Goal Patient Goal Type Associated Problems Recent Progress Patient-Stated? Author [facility] Home Medication Compliance and Understanding Patient Facing Action Plan On track( 017 10:41 AM EDT) No Selena Cisneros, [facility] Note: Patient Goal: Clear hepatitis C Timeframe to meet goal: within 12 weeks of therapy documented as of this encounter Visit Diagnoses Not on filedocumented in this encounter Care Teams Cork Insulator Relationship Specialty Start Date End Date Urbano Denis DO [address] [place] [address] PCP - General 09/03/12 03/17/22 Ruchi Valles RN Nurse Clinic Transplant Surgery 07/30/15 documented as of this encounter
--- OUTSIDE RECORDS SUMMARY | 2024-05-16 17:25 | XMS_ITS | Encounter Summary ---
Author Organization [facility] [place] [address] Care Team Providers Care Piping Manager Name Role Phone AdeelUrbano toscano Primary Care Provider Encounter Details Date Type Department Care Team (Late st Contact Info) Description 09/24/2018 Orders Only [place] [phone] Tal Eagle MD [facility] [place] [address] BK viremia Social History Tobacco Use Types [...] AM EST Visit (TeleHealth) Cardiology at [address] [phone] Byron Brown MD [facility] [place] [address] 07/14/2024 10:00 AM EST Hospital Encounter Non-Invasive [place] [address] Arrived documented as of this encounter Goals [...] AM EDT) BKV Urine Result Not Detected [facility] BKV Urine Interp BK Virus Urine Result Interpretation Result: BK Virus not detected Specimen type: urine Assay Range: 2.80-7.80 log copies/mL (6.28x10^2 - 6.28x10^7 copies/mL) Methods: Quantitative real-time polymerase chain reaction (PCR) of viral DNA isolated from plasma was performed using [employer] BKV analyte-specific reagents and the [employer]i System that automates both nucleic acid isolation [...] [facility] Comment: [VERIFIED DATE]09.17.19 Verified By:Tal Cleaning (Electronic Signature) Urine specimen (specimen) 09/12/2019 10:23 AM EDT 09/12/2019 11:59 AM EDT Narrative Resulting Agency Comment Spec In Lab Tal Eagle MD MOLECULAR ORDERAB LES Performing Organization Address City/[facility]/ZIP Co de Phone Number [facility] [place] [address] * Miscellaneous Lab request (09/12/2019 10:10 AM EDT) Label Request received in lab. [facility] Blood specimen (specimen) 09/12/2019 10:10 AM EDT 09/12/2019 10:23 AM EDT Narrative Resulting Agency Comment Spec In Lab Tal Eagle MD LAB SEND OUT ORDE KORYLENORE Performing Organization Address City/[facility] Co de Phone Number [facility] [place] [address] documented in this encounter Visit Diagnoses Diagnosis BK viremia Viremia, unspecified documented in this encounter Care Teams Piping Manager Relationship Specialty Start Date End Date Urbano Denis DO [facility] [address] [place] [address] PCP - General 09/03/12 03/17/22 Ruchi Valles RN Nurse Clinic Transplant Surgery 07/30/15 documented as of this encounter
--- OUTSIDE RECORDS SUMMARY | 2024-05-16 17:25 | XMS_ITS | Encounter Summary ---
Author Organization [facility] Address [facility] [place] [address] Care Team Providers Care Sand Buffer Name Role Phone AdeelUrbano toscano Primary Care Provider [phone] Reason for Visit * Reason Onset Date Comments Medication Refill 01/13/2019 Encounter Details Date Type Department Care Team (Late st Contact Info) Description 01/13/2019 Refill [place] [phone] Tal Eagle MD [facility] [place] [address] Social History Tobacco Use Types Packs/Day Years [...] EST TH Visit (TeleHealth) Cardiology at [address] [phone] Byron Brown MD [facility] [place] [address] 07/14/2024 10:[address] [facility] Hospital Encounter Non-[place] [address] Arrived documented as of this [...] filedocumented in this encounter Care Teams Sand Buffer Relationship Specialty Start Date End Date Urbano Denis DO [address] [place] [address] PCP - General 09/03/12 03/17/22 Ruchi Valles RN Nurse Clinic Transplant Surgery 07/30/15 documented as of this encounter
--- OUTSIDE RECORDS SUMMARY | 2024-05-16 17:25 | XMS_ITS | Encounter Summary ---
Author Organization [facility] [place] [address] Care Team Providers Care Wind Technician Name Role Phone AdeelUrbano toscano Primary Care Provider [phone] Reason for Visit * Reason Comments Medication Refill Encounter Details Date Type Department Care Team (Late st Contact Info) Description 07/14/2018 Refill [place] [address] Tal Eagle MD [facility] [place] [address] Social History Tobacco Use Types Packs/Day Years [...] EST TH Visit (TeleHealth) Cardiology at [address] [phone] Byron Brown MD [facility] [place] [address] 07/14/2024 10:00 AM [facility] Hospital Encounter Non[place] [phone] Arrived documented as of this encounter Goals [...] filedocumented in this encounter Care Teams Wind Technician Relationship Specialty Start Date End Date Urbano Denis DO [address] [place] [address] [address] [facility] [address] [place] [address] PCP - General 09/03/12 03/17/22 Ruchi Valles RN [facility] Transplant Surgery 07/30/15 documented as of this encounter
--- OUTSIDE RECORDS SUMMARY | 2024-05-16 17:25 | XMS_ITS | Encounter Summary ---
Author Organization [facility] Address [facility] [place] [address] Care Team Providers Care Paper Handler Name Role Phone AdeelUrbano boland Primary Care Provider + [phone] Reason for Visit * Reason Onset Date Comments Medication Refill 01/18/2019 Encounter Details Date Type Department Care Team (Late st Contact Info) Description 01/18/2019 Refill [place] [address] Tal Eagle MD [facility] [place] [address] Social History Tobacco Use Types Packs/Day Years [...] 11:00 AM EST Visit (TeleHealth) Cardiology at [address] [phone] Byron Brown MD [facility] [place] [address] 07/14/2024 10:00 AM EST Hospital Encounter Non-[place] [address] Arrived documented as of this [...] filedocumented in this encounter Care Teams Paper Handler Relationship Specialty Start Date End Date Urbano Denis DO [address] [facility] [place] [address] PCP - General 09/03/12 03/17/22 Ruchi Valles RN Nurse Clinic Transplant Surgery 07/30/15 documented as of this encounter
--- OUTSIDE RECORDS SUMMARY | 2024-05-16 17:25 | XMS_ITS | Encounter Summary ---
Author Organization [facility] [place] [address] Care Team Providers Care Manager Equity Name Role Phone AdeelUrbano toscano Primary Care Provider [phone] Reason for Visit * Reason Onset Date Comments Medication Refill 06/28/2018 Encounter Details Date Type Department Care Team (Late st Contact Info) Description 06/28/2018 Refill [place] [address] Marisela Metcalf RN Social History Tobacco Use [...] AM EST TH Visit (TeleHealth) Cardiology at [address] [phone] Byron Brown MD [facility] [place] [address] 07/14/2024 10:00 AM EST Hospital Encounter Non-Invasive [place] [address] Arrived documented as of this encounter Goals [...] filedocumented in this encounter Care Teams Manager Equity Relationship Specialty Start Date End Date Urbano Denis DO [address] [facility] [address] [place] [address] PCP - General 09/03/12 03/17/22 Ruchi Valles RN Nurse Clinic Transplant Surgery 07/30/15 documented as of this encounter
--- OUTSIDE RECORDS SUMMARY | 2024-05-16 17:25 | XMS_ITS | Encounter Summary ---
Author Organization [facility] [place] [address] Care Team Providers Care Java Golden Gate Developer Name Role Phone Urbano Denis DO Primary Care Provider [phone] Reason for Visit * Reason Comments Dehydration Dizziness * Auth/Cert Specialty Diagnoses / Procedures Referred By Humberto flor Referred To Contact Diagnoses Paroxysmal atrial fibrillation Atrial fibrillation with RVR Referral ID Status Reason Start Date Expiration Date Visits Re quested Visits Authorized [id number] 1 1 Encounter Details Date Type Department Care Team (Late st Contact Info) Description 02/02/2019 1:00 PM EDT - 02/02/2019 2:00 PM EDT [place] [address] Bobby Engel MD [facility] [place] [address] CARDIAC CATHETERIZATION Social History Tobacco Use Types [...] Ethel Bolden Patient Age: 68 y.o. Language: Tajik Race: White Ethnicity: Not nor Admit date: [...] please contact your inpatient physician through the [facility] Ambulatory Care Nurse . Issues afterhours and on weekends will [...] fluid loss. Denies any fevers or chills. [place] bloated in abdomen since yesterday. No pain [...] was also started on apixaban due to [id number] score of 6, with no complications of [...] night,and patient reported a history of ARIELLA. Neffs Sleepiness Scale was notable for increased sleepiness; [...] Complete By Expires Referral to Cardiac Rehab [[id number] Custom] As directed Process Instructions: If no progress note charted, please enter Clinical details in comments. Scheduling Instructions: Questions: My question or request is: Pt will participate in cardiac rehab @ [facility] Referral to Home Health - at DISCHARGE [[id number] CPT(R)] As directed Process Instructions: Scheduling Instructions: Comments: DOCUMENTATION FOR VNA SERVICES (INCLUDING THOSE PATIENTS WITH MEDICARE COVERAGE REQUIRING HOME VNA SERVICES AND/OR HOSPICE SERVICES) PATIENT'S LOCATION: Ethel Bolden [address] [place], [place] [address] [place] [address] (home) Cell: Telephone Information: Electric Train Driver's Name: Patient In discussion with the attending physician, it is certified that this patient is under their care and that they, or a Nurse Practitioner,Clinical Nurse specialist or Physician Straight Cutter who is working directly with them, had [...] for managing ADL's. HOME HEALTH CARE AGENCY: [facility]. PHONE: [phone] FAX: [phone] Start of care: 24-48hrs upon discharge FOR [...] Denis DO [address] / [place] [address] All VNA agencies which cover the area of patient's residence have been reviewed, either verbally greg writing, and patient/family have chosen the home health care agency noted Questions: Agency name and contact information: [facility] Patient [...] 02/05/2019 4:04 PM EDT Pt discharged to [facility] via wheelchair, accompanied by and RN. [...] spent <30 minutes (Day of Discharge Code 56652) involved in the final examination of the [...] DAILY PROGRESS NOTE Patient: Ethel Bolden, 1950, [id number] Physician: Alessandro Limon DO, Pager: [phone], Hospital [...] PRN DIET: Daily Healthy Menu Choices/Cardiac diet ([facility]-Diet) IPI Certification I certify that I am [...] side effects and NSTEMI Alessandro Limon DO [facility] Hospitalist 02/04/2019 4:42 PM * Mahsa Celestin RN - 02/04/2019 3:41 PM EDT Spoke with patient regarding VNA services, he asked me to speak with Mundo. This leader writer calledHarpreetnicola and she asked for a referral to: [facility]. PHONE: [phone] FAX: [phone] Referral routed to the Regional Marketing Director for matching with agency/vendor and to provide [...] DAILY PROGRESS NOTE Patient: Ethel Bolden, 1950, [id number] Physician: Alessandro Limon DO, Pager: [phone], Hospital Medicine Service Admit Date: 01/31/2019 Date [...] PRN DIET: Daily Healthy Menu Choices/Cardiac diet ([facility]-Diet) IPI Certification I certify that I am [...] side effects and NSTEMI Alessandro Limon DO [facility] Hospitalist 02/03/2019 5:14 PM * Nika Starr [...] from 01/31/2019 in Intermediate Cardiac Care Unit [facility] Office Visit from 09/15/2018 in Solid Organ Transplant at [facility] Weight 107 kg (235 lb 14.3 oz) [...] - currently on heparin gtt; will need prison anticoagulation for CHADS-VASc of at least 4; [...] Limon DO - 02/02/2019 3:47 PM EDT [facility] ATTENDING DAILY PROGRESS NOTE Patient: Ethel Bolden, 1950, [id number] Physician: Alessandro Limon DO, Pager: [phone], Hospital Medicine Service Admit Date: 01/31/2019 Date [...] 100% Non re breather for transport to Plugger Worker PLAN: RT will cont to support and [...] on 8L venti mask desat to 86%. SHOE RECONDITIONER Giselle notified. Nebulizer ordered with minimal effect. Chest xray obtained. Pt place on 12L 50% venti.RT notified requesting hi-flow. Pt continued to desat. Placed on nonrebreather sating 89%. SHOE RECONDITIONER notified. Nonrebreather only set to 50% fiO2 via hi flow stand. Came to bedside to assess. 2343- RT at bedside 2346- life safety at bedside * Alessandro Limon DO - 02/01/2019 4:28 PM EDT [facility] ATTENDING DAILY PROGRESS NOTE Patient: Ethel Bolden, 1950, [id number] Physician: Alessandro Limon DO, Pager: [phone], Hospital Medicine Service Admit Date: 01/31/2019 Date [...] side effects and NSTEMI Alessandro Limon DO [facility] Hospitalist 02/01/2019 7:23 PM * Yeimi Martinez, [facility] - 02/01/2019 10:26 AM EDT Respiratory Therapy [...] low 90s while on mask 65L 50%. SHOE RECONDITIONER aware and had IVF stopped, ordered ABG - 7.46/33/122/22.9 on60% FO2Hb 97.4 with SpO2 still reading low 90s. Weaned FiO2 back down to 45%. Plan to start diuresis pending AM labs. PLAN: Wean settings as tolerated. Sharon Boo RCP * Polina Glaser, RN - 01/31/2019 10:24 PM EDT Pt desating while asleep on RA. NC applied, unable to maintain sats on 6L NC. SHOE RECONDITIONER Giselle notified.Came to bedside to assess. Pt placed on venti mask. Pt up to 50% 12L venti mask to maintain sats >90%. RT notified. Advanced Analytics Associate updated. No further labs ordered at this [...] Vitamin D deficiency ??? 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 CAH [...] Hematuria ID: 68 y.o. Male presents to [facility] with lightheadedness and decreased urine output History [...] fluid loss. Denies any fevers or chills. [place] bloated in abdomen since yesterday. No pain [...] ALLOGRAFT performed by Larry Larkin MD at [facility] OR ??? PRO TRANSPLANTATION OF KIDNEY N/A 09/16/2015 @KIDNEY TRANSPLANT, WITHOUT RECIPIENT NEPHRECTOMY performed by Larry Larkin MD at [facility] OR ??? US RENAL TRANSPLANT LEFT Left 01/31/2019 US Renal Transplant Left 01/31/2019 [facility] RAD ULTRASOUND Prior To Admission [...] file Gets together: Not on file Attends jewish service: Not on file Active member of [...] Negative mcL Appearance UA Clear Clear Spec [place] UA 1.023 1.002 - 1.030 Color UA [...] contact the number below. Electronically signed by: Jolly Payne [facility] ([phone]), at 01/31/2019 2:40 PM Jolly Payne, Staff Physician Electronically Signed Final Report 01/31/2019 02:47 pm XR Chest PA & Lateral (Generic) Final Result Small bilateral pleural effusions. No overt pulmonary edema. Thank you for letting us participate in the care of this patient. For questions regarding this report, please contact the number below. Electronically signed by: Edinson Woo [facility] ([phone]), at 01/31/2019 12:47 PM - I have reviewed EKG results, which [...] to medicine Rocky Wong MD Resident 01/31/19 6228 Associated attestation - Mundo Yeung MD - [...] Intake/Output Summary (Last 24 hours) at 02/04/2019 2071 Last data filed at 02/04/2019 1308 Gross [...] - Work up for ARIELLA--scored high on Neffs Sleep Scale; may benefit from outpatient sleep [...] off oxygen ?? Destinee Leggett M4 Pager: [phone] * Consult Note - Blanca Jacobo RN [...] in an outpatient cardiac rehabilitation program at [facility] was discussed. Patient agrees to a referral to this program. The referral will be sent at discharge and the patient should be contacted by the Program within 1- 2 weeks from discharge. * Plan of Care - Lee nAn Thomas OT - 02/04/2019 1:32 PM EDT [...] ALLOGRAFT performed by Larry Larkin MD at [facility] OR ??? PRO TRANSPLANTATION OF KIDNEY N/A 09/16/2015 @KIDNEY TRANSPLANT, WITHOUT RECIPIENT NEPHRECTOMY performed by Larry Larkin MD at [facility] OR ??? US RENAL TRANSPLANT LEFT Left 01/31/2019 US Renal Transplant Left 01/31/2019 [facility] RAD ULTRASOUND Social History: Patient [...] and measurable assessment of functional outcome. Pager: [phone] Lee Ann Thomas OT 02/04/2019 Occupational Therapy [...] w/ O2 sat at low 90's and jjjmisctom53% non sustained. - 3:00am: Duoneb x1, Pt [...] possibly be re-evaluated for cardiac rehab. Given [id number] score and history of aflutter, will begin [...] - Duoneb Q4H PRN # CKD # ARY # Hypokalemia # Hypocalcemia - Kidney function [...] ?? Destinee Duckworth Kenan Tidwell M4 Pager: [phone] * Consult Note - Sara Amador RN [...] Procedure Note: Patient Name: Ethel Bolden : [id number] MR#: [id number] Case Date: 02/02/2019 Ambulatory Care Nurse: Surgeon(s) and Role: * Bobby Engel MD [...] HR <50, Systolic BP <90 - Elevated [id number]; patient may benefit from anticoagulation; to discuss [...] d/c ?Thursday ?? Destinee Leggett M4 Pager: [phone] * Plan of Care - Sharon Ruth [...] to recover. 1653 patient transferred to the circus laborer PLAN MOVING FORWARD: Telemetry Heparin drip Bleeding [...] GENERIC Prescription Coverage: Yes Preferred Pharmacy: [facility] [address] [address] Not a 24 hour pharmacy; exact hours not known [facility] [address] Not a 24 hour pharmacy; exact hours not known Other: None Primary Care Provider: Urbano Denis DO [phone] Patient/Caregiver Goals of Treatment: To get the [...] of care planning. Mahsa Celestin, RN Pager: [phone] * Plan of Care - Nika Starr [...] left heart cath, coronaries Nika Starr MD Technical Project Manager * Plan of Care - Polina Glaser [...] HR <50, Systolic BP <90 - Elevated [id number]; patient may benefit from anticoagulation but unclear [...] d/c ?Thursday ?? Destinee Leggett M4 Pager: [phone] * Consult Note - Larry Garay MD [...] Chest xray completed. Trop came back elevated. SHOE RECONDITIONER Giselle notified. STAT EKG completed. Heparin gtt infusing as ordered. Life safety came to bedside. IVF decreased to 75cc/hr from 120cc/hr. Tele in sinus rhythm with frequent PVCs. Will CTM and notify the team with changes. 0410- Pt continues to have difficulty maintain sats on venti mask. Placed on Hi- flow mask. IVF stopped. Rt at bedside. ABG drawn. Life safety and SHOE RECONDITIONER at bedside. PLAN MOVING FORWARD: Tele Monitor [...] remained coarse and diminished in bases. Primary DRAW BENCH OPERATOR notified with concern of new oxygen demand. Plan made to d/c IVF r/tincreased pulmonary congestion shown on CXR and elevated troponin. AM labs drawn to evaluate RAY and d/c of IVF. MD expressed concerns of sleep apnea. When patient originally awake no increases in O2sat noted. WASH HELPER notified and down to eval. Plan made [...] couple of years ago and don't want it.DRAW BENCH OPERATOR consulted critical care fellow at this time. Lasix IVP was discussed to help with new pulmonary congestion. Plan made to re evaluate s/p AM labs (ie. BUN/Cr) for concern of worsening RAY. Plan made with DRAW BENCH OPERATOR, primary RN, and charge machine operator for continued monitoring of oxygen status, repeat [...] with oxygenation. Plan made with primary RN, DRAW BENCH OPERATOR, and charge machine operator to have patient remain on floor r/t [...] EXTREMITY performed by Que Amaro MD at [facility] MAIN OR ??? PRO CYSTOURETHROSCOPY, URETER CATHETER Left 06/17/2018 CYSTO, RETROGRADE, URETEROPYELOGRAPHY (WRVU 2.37) performed by Edinson Grider III, MD at [facility] FR[facility]IS ??? PRO REIMPLANT URETER, SINGLE URETER Left 05/20/2016 @URETERONEOCYSTOSTOMY ANASTOMOSIS OF SINGLE URETER TO BLADDER performed by Santosh Arredondo MD at [facility] MAIN OR ??? PRO REIMPLANT URETER, SINGLE URETER N/A 05/20/2016 @URETERONEOCYSTOSTOMY ANASTOMOSIS OF SINGLE URETER TO BLADDER performed by Que Amaro MD at [facility] MAIN OR ??? PRO TOTAL KNEE ARTHROPLASTY Right 11/25/2017 TOTAL KNEE ARTHROPLASTY (WRVU 20.72) performed by Breezy Dale MD at [facility] MAIN OR ??? PRO TRANSPLANT, PREP CADAVER RENAL GRAFT N/A 09/16/2015 @PREPARATION CADAVERIC RENAL ALLOGRAFT performed by Larry Larkin MD at [facility] MAIN OR ??? PRO TRANSPLANTATION OF KIDNEY N/A 09/16/2015 @KIDNEY TRANSPLANT, WITHOUT RECIPIENT NEPHRECTOMY performed by Larry Larkin MD at [facility] MAIN OR ??? US RENAL TRANSPLANT LEFT Left 01/31/2019 US Renal Transplant Left 01/31/2019 [facility] RAD ULTRASOUND No Known Allergies [...] file Gets together: Not on file Attends jewish service: Not on file Active member of [...] ED to Hosp-Admission (Current) from 01/31/[address] [place] [address] Office Visit from 09/15/2018 in Solid Organ Transplant at [facility] Weight 106.1 kg (234 lb) 1 01/31/2019 [...] will continue to follow. Jessee Nance MD Technical Project Manager [phone] POST ROUNDS ADDENDUM 68 year old [...] Cheung, addendum to follow. Nika Starr MD Technical Project Manager [phone] Cardiology Staff Addendum Ethel Bolden is [...] on TTE) #Atrial fibrillation and flutter, nonvalvular, [id number] 6 #HFrEF/acute systolic HF, new (LVEF 35%), [...] EST TH Visit (TeleHealth) Cardiology at [address] [address] Byron Brown MD [facility] [place] [address] 07/14/2024 10:00 AM EST Hospital Encounter Non[place] [address] Arrived Pending Results Name Type [...] EDT Paroxysmal atrial fibrillation CARDIAC CATHETERIZATION Routine 07/31/20 19 6:59 PM EDT POINT OF CARE [...] EDT) pH, Arterial 7.50(H) 7.35 - 7.45 [facility] PCO2, Arterial 33(L) 35 - 45 mmHg [facility] PO2, Arterial 77(L) 85 - 104 mmHg [facility] Bicarbonate, Arterial 24.7 20.0 - 26.0 mmol/L [facility] Base Excess, Arterial 1.5 -3.0 - 3.0 mmol/L [facility] Hgb Blood Gas 16.3 13.7 - 16.5 gm/dL [facility] Oxyhemoglobin, Arterial 94.9 94.0 - 97.0 % [facility] Carboxyhemoglob in, Arterial 0.7 % [facility] Comment: Nonsmokers: 0.5-1.5% COHB Smokers: Variable, but usually less than 10% Toxic: 20-30% COHB Lethal: Greater than 60% COHB Methemoglobin, Arterial 0.5 <=1.5 % [facility] Na Whole Blood 133(L) 135 - 145 mmol/L [facility] K Whole Blood 4.1 3.5 - 5.0 mmol/L [facility] Comment: Please note: Patients with WBC >100,000 may have falsely elevated Potassium levels. Contact the Clinical Chemistry Laboratory if there are any questions. ICa Whole Blood 1.08(L) 1.15 - 1.33 mmol/L [facility] Comment: Note: ??Total bilirubin higher than 20 mg/dL may lead to falsely low ionized calcium. CL Whole Blood 98 98 - 107 mmol/L [facility] Gluc Whole Bld 138 65 - 199 mg/dL [facility] Comment:Diabetes: >=200 mg/d L plus symptoms. Lactate WB 1.5 0.5 - 2.2 mmol/L [facility] FIO2 Art 50 % [facility] PF Ratio Art 154 [facility] Blood specimen (specimen) 02/07/2019 2:42 AM EDT 02/07/2019 2:42 AM EDT Danny Hicks MD POINT OF CARE TEST O RDERABG Performing Organization Address [facility] Co de Phone Number [facility] [place] [address] * POCT Glucose (02/05/2019 11:25 AM EDT) Glucose, POC 163 65 - 199 mg/dL [facility] Comment: Supplemental ranges: <140 mg/dL before meals <180 mg/dL all other times of the day Blood specimen (specimen) 02/05/2019 11:25 AM EDT 02/05/2019 11:25 AM EDT Alessandro Limon DO POINT OF CARE TEST O RDERABLES Performing Organization Address City/[facility]/ZIP Co de Phone Number [facility] [place] [address] * (ABNORMAL) Magnesium (02/05/2019 7:47 AM EDT) Magnesium 0.67(L) 0.69 - 1.07 mmol/L [facility] Blood specimen (specimen) 02/05/2019 7:47 AM EDT 02/05/2019 8:13 AM EDT Narrative Resulting Agency Comment Spec In Lab Alessandro Limon DO CHEMISTRY ORDERABLES Performing Organization Address [facility] Co de Phone Number [facility] [place] [address] * POCT Glucose (02/05/2019 6:56 AM EDT) Glucose, POC 110 65 - 199 mg/dL [facility] Comment: Supplemental ranges: <140 mg/dL before meals <180 mg/dL all other times of the day Blood specimen (specimen) 02/05/2019 6:56 AM EDT 02/05/2019 6:56 AM EDT Alessandro Limon DO POINT OF CARE TEST O RDERABLES Performing Organization Address [facility] Co de Phone Number [facility] [place] [address] * POCT Glucose (02/04/2019 7:38 PM EDT) Glucose, POC 102 65 - 199 mg/dL [facility] Comment: Supplemental ranges: <140 mg/dL before meals <180 mg/dL all other times of the day Blood specimen (specimen) 02/04/2019 7:38 PM EDT 02/04/2019 7:38 PM EDT Alessandro Limon DO POINT OF CARE TEST O RDERABLES Performing Organization Address [facility] Co de Phone Number [facility] [place] [address] * (ABNORMAL) BMP w/fasting Glucose (02/04/2019 7:35 PM EDT) Glucose Fasting 107(H) 65 - 99 mg/dL [facility] [...] 20 mg/dL [facility] Creatinine 1.43 0.80 - 1.50 mg/dL [facility] Sodium 142 135 - 145 mmol/L [facility] Potassium 3.4(L) 3.5 - 5.0 mmol/L [facility] Comment: Please note: ??Patients with WBC >100,000 may have falsely elevated Potassium levels. ??For accurate Potassium quantification in these patients send serum separator tube (gold top) for subsequent determinations. ??Contact the Clinical Chemistry Laboratory if there are any questions. Chloride 98 98 - 107 mmol/L [facility] Carbon Dioxide 31 22 - 31 mmol/L [facility] Anion Gap 13 5 - 15 mmol/L [facility] Calcium 9.2 8.5 - 10.5 mg/dL [facility] Est Glomerular Filtration Rate 49(L) >=60 mL/min/1. 73 m?? [facility] Comment: The eGFR was calculated using the CKD-EPI equation. As with all creatinine based estimates of kidney function, eGFR values calculated with the CKD-EPI equation are not accurate in patients with acute kidney failure, extremes of body mass or the acutely ill. http://[employer]/DHMCnkf eGFR 57(L) >=60 mL/min/1. 73 m?? [facility] Comment: The eGFR was calculated using the CKD-EPI equation. As with all creatinine based estimates of kidney function, eGFR values calculated with the CKD-EPI equation are not accurate in patients with acute kidney failure, extremes of body mass or the acutely ill. http://[employer]/DHMCnkf Blood specimen (specimen) 02/04/2019 7:35 PM EDT 02/04/2019 7:40 PM EDT Narrative Resulting Agency Comment Spec In Lab Patricia Lozano APRN CHEMISTRY ORDERAB LES Performing Organization Address City/[facility]/ZIP Co de Phone Number [facility] [place] [address] * POCT Glucose (02/04/2019 4:30 PM EDT) Glucose, POC 143 65 - 199 mg/dL [facility] Comment: Supplemental ranges: <140 mg/dL before meals <180 mg/dL all other times of the day Blood specimen (specimen) 02/04/2019 4:30 PM EDT 02/04/2019 4:30 PM EDT Alessandro Limon DO POINT OF CARE TEST O RDERABLES Performing Organization Address [facility] Co de Phone Number [facility] [place] [address] * POCT Glucose (02/04/2019 11:26 AM EDT) Glucose, POC 141 65 - 199 mg/dL [facility] Comment: Supplemental ranges: <140 mg/dL before meals <180 mg/dL all other times of the day Blood specimen (specimen) 02/04/2019 11:26 AM EDT 02/04/2019 11:26 AM EDT Alessandro Limon DO POINT OF CARE TEST O RDERABLES Performing Organization Address [facility] Co de Phone Number [facility] [place] [address] * POCT Glucose (02/04/2019 7:01 AM EDT) Glucose, POC 152 65 - 199 mg/dL [facility] Comment: Supplemental ranges: <140 mg/dL before meals <180 mg/dL all other times of the day Blood specimen (specimen) 02/04/2019 7:01 AM EDT 02/04/2019 7:01 AM EDT Alessandro Limon DO POINT OF CARE TEST O RDERABLES Performing Organization Address [facility] Co de Phone Number [facility] [place] [address] * Magnesium (02/04/2019 3:40 AM EDT) Magnesium 0.69 0.69 - 1.07 mmol/L [facility] Blood specimen (specimen) Venous Draw / Unknown 02/04/2019 3:40 AM EDT 02/04/2019 3:49 AM EDT Narrative Resulting Agency Comment Spec In Lab Alessandro Limon DO CHEMISTRY ORDERABLES Performing Organization Address [facility] Co de Phone Number [facility] [place] [address] * (ABNORMAL) Basic Metabolic Panel (non-fasting) (02/04/2019 3:40 AM EDT) Glucose 126 65 - 199 mg/dL [facility] Comment:Diabetes: >=200 mg/d L plus symptoms Blood Urea Nitrogen 21(H) 10 - 20 mg/dL [facility] Creatinine 1.56(H) 0.80 - 1.50 mg/dL [facility] Sodium 139 135 - 145 mmol/L [facility] Potassium 3.8 3.5 - 5.0 mmol/L [facility] Comment: Please note: ??Patients with WBC >100,000 may have falsely elevated Potassium levels. ??For accurate Potassium quantification in these patients send serum separator tube (gold top) for subsequent determinations. ??Contact the Clinical Chemistry Laboratory if there are any questions. Chloride 98 98 - 107 mmol/L [facility] Carbon Dioxide 28 22 - 31 mmol/L [facility] Anion Gap 13 5 - 15 mmol/L [facility] Calcium 8.7 8.5 - 10.5 mg/dL [facility] Est Glomerular Filtration Rate 44(L) >=60 mL/min/1. 73 m?? [facility] Comment: The eGFR was calculated using the CKD-EPI equation. As with all creatinine based estimates of kidney function, eGFR values calculated with the CKD-EPI equation are not accurate in patients with acute kidney failure, extremes of body mass or the acutely ill. http://[employer]/[facility]Dnkf eGFR 51(L) >=60 mL/min/1. 73 m?? [facility] Comment: The eGFR was calculated using the CKD-EPI equation. As with all creatinine based estimates of kidney function, eGFR values calculated with the CKD-EPI equation are not accurate in patients with acute kidney failure, extremes of body mass or the acutely ill. http://[employer]/[facility]Dnkf Blood specimen (specimen) 02/04/2019 3:40 AM EDT 02/04/2019 3:49 AM EDT Narrative Resulting Agency Comment Spec In Lab Alessandro Limon DO CHEMISTRY ORDERABLES Performing Organization Address City/State/[facility] Co de Phone Number [facility] [place] [address] * (ABNORMAL) Hemogram (02/04/2019 3:40 AM EDT) White Blood Cell 9.8(H) 4.0 - 9.5 x10(3)/mc L [facility] Red Blood Cell 4.59 4.58 - 5.54 x10(6)/mc L [facility] Hemoglobin 14.1 13.7 - 16.5 gm/dL [facility] Hematocrit 41.9 40.5 - 48.5 % [facility] Mean Cell Volume 91.3 82.9 - 93.1 fL [facility] Mean Cell Hemoglobin 30.7 27.5 - 32.1 pg [facility] Mean Cell Hemoglobin Concentration 33.7 32.0 - 35.7 gm/dL [facility] Platelet 247 145 - 357 x10(3)/mc L [facility] RDW Standard Deviation 45.1(H) 36.0 - 45.0 fL [facility] RDW coefficient of variation 13.8 11.4 - 13.8 % [facility] Mean Platelet Volume 9.5 7.6 - 12.9 fL [facility] NRBC% auto 0.0 % [facility] NRBC Absolute 0.000 0.000 - 0.000 x10(3)/mc L [facility] Blood specimen (specimen) 02/04/2019 3:40 AM EDT 02/04/2019 3:49 AM EDT Narrative Resulting Agency Comment Spec In Lab Alessandro Limon DO HEMATOLOGY ORDERABLE S Performing Organization Address City/[facility]/ZIP Co de Phone Number [facility] [place] [address] * POCT Glucose (02/03/2019 8:56 PM EDT) Pathologist [facility] Glucose, POC 117 65 - 199 mg/dL [facility] Comment: Supplemental ranges: <140 mg/dL before meals <180 mg/dL all other times of the day Blood specimen (specimen) 02/03/2019 8:56 PM EDT 02/03/2019 8:56 PM EDT Alessandro Limon DO POINT OF CARE TEST O RDERABLES Performing Organization Address [facility]/ZIP Co de Phone Number [facility] [place] [address] * Heparin (unfractionated) Level (02/03/2019 5:07 PM EDT) [facility] UF Heparin 0.31 IU/mL [facility] Comment: Guidelines for therapeutic [...] MD HEMATOLOGY ORDERABLE S Performing Organization Address [facility] de Phone Number [facility] [place] [address] * POCT Glucose (02/03/2019 4:40 PM EDT) Glucose, POC 160 65 - 199 mg/dL [facility] Comment: Supplemental ranges: <140 mg/dL before meals <180 mg/dL all other times of the day Blood specimen (specimen) 02/03/2019 4:40 PM EDT 02/03/2019 4:40 PM EDT Alessandro Limon DO POINT OF CARE TEST O RDERABLES Performing Organization Address [facility] Co de Phone Number [facility] [place] [address] * POCT Glucose (02/03/2019 11:41 AM EDT) Glucose, POC 169 65 - 199 mg/dL [facility] Comment: Supplemental ranges: <140 mg/dL before meals <180 mg/dL all other times of the day Blood specimen (specimen) 02/03/2019 11:41 AM EDT 02/03/2019 11:41 AM EDT Alessandro Limon DO POINT OF CARE TEST O RDERABLES Performing Organization Address [facility] de Phone Number [facility] [place] [address] * Heparin (unfractionated) Level (02/03/2019 10:02 AM EDT) [facility] UF Heparin 0.33 IU/mL [facility] Comment: Guidelines for therapeutic [...] DO HEMATOLOGY ORDERABLE S Performing Organization Address [facility] Co de Phone Number [facility] [place] [address] * POCT Glucose (02/03/2019 7:14 AM EDT) Glucose, POC 118 65 - 199 mg/dL [facility] Comment: Supplemental ranges: <140 mg/dL before meals <180 mg/dL all other times of the day Blood specimen (specimen) 02/03/2019 7:14 AM EDT 02/03/2019 7:14 AM EDT Alessandro Limon DO POINT OF CARE TEST O RDERABLES Performing Organization Address [facility] Co de Phone Number [facility] [place] [address] * Magnesium (02/03/2019 6:34 AM EDT) Magnesium 0.71 0.69 - 1.07 mmol/L [facility] Blood specimen (specimen) 02/03/2019 6:34 AM EDT 02/03/2019 6:41 AM EDT Narrative Resulting Agency Comment Spec In Lab Alessandro Limon DO CHEMISTRY ORDERABLES Performing Organization Address [facility] de Phone Number [facility] [place] [address] * (ABNORMAL) Basic Metabolic Panel (non-fasting) (02/03/2019 6:34 AM EDT) Glucose 115 65 - 199 mg/dL [facility] Comment:Diabetes: >=200 mg/d L plus symptoms Blood Urea Nitrogen 22(H) 10 - 20 mg/dL [facility] Creatinine 1.44 0.80 - 1.50 mg/dL [facility] Sodium 137 135 - 145 mmol/L [facility] Potassium 3.4(L) 3.5 - 5.0 mmol/L [facility] Comment: Please note: ??Patients with WBC >100,000 may have falsely elevated Potassium levels. ??For accurate Potassium quantification in these patients send serum separator tube (gold top) for subsequent determinations. ??Contact the Clinical Chemistry Laboratory if there are any questions. Chloride 101 98 - 107 mmol/L [facility] Carbon Dioxide 26 22 - 31 mmol/L [facility] Anion Gap 10 5 - 15 mmol/L [facility] Calcium 8.4(L) 8.5 - 10.5 mg/dL [facility] Est Glomerular Filtration Rate 49(L) >=60 mL/min/1. 73 m?? [facility] Comment: The eGFR was calculated using the CKD-EPI equation. As with all creatinine based estimates of kidney function, eGFR values calculated with the CKD-EPI equation are not accurate in patients with acute kidney failure, extremes of body mass or the acutely ill. http://[employer]/[facility]nkf eGFR 57(L) >=60 mL/min/1. 73 m?? [facility] Comment: The eGFR was calculated using the CKD-EPI equation. As with all creatinine based estimates of kidney function, eGFR values calculated with the CKD-EPI equation are not accurate in patients with acute kidney failure, extremes of body mass or the acutely ill. http://[employer]/[facility]nkf Blood specimen (specimen) 02/03/2019 6:34 AM EDT 02/03/2019 6:41 AM EDT Narrative Resulting Agency Comment Spec In Lab Alessandro Limon DO CHEMISTRY ORDERABLES Performing Organization Address City/State/[facility] Co de Phone Number [facility] [place] [address] * (ABNORMAL) Hemogram (02/03/2019 6:34 AM EDT) White Blood Cell 8.9 4.0 - 9.5 x10(3)/mc L [facility] Red Blood Cell 4.05(L) 4.58 - 5.54 x10(6)/mc L [facility] Hemoglobin 12.8(L) 13.7 - 16.5 gm/dL [facility] Hematocrit 38.0(L) 40.5 - 48.5 % [facility] Mean Cell Volume 93.8(H) 82.9 - 93.1 fL [facility] Mean Cell Hemoglobin 31.6 27.5 - 32.1 pg [facility] Mean Cell Hemoglobin Concentration 33.7 32.0 - 35.7 gm/dL [facility] Platelet 200 145 - 357 x10(3)/mc L [facility] RDW Standard Deviation 46.7(H) 36.0 - 45.0 fL [facility] RDW coefficient of variation 13.8 11.4 - 13.8 % [facility] Mean Platelet Volume 9.6 7.6 - 12.9 fL [facility] NRBC% auto 0.0 % [facility] NRBC Absolute 0.000 0.000 - 0.000 x10(3)/mc L [facility] Blood specimen (specimen) 02/03/2019 6:34 AM EDT 02/03/2019 6:41 AM EDT Narrative Resulting Agency Comment Spec In Lab Alessandro Limon DO HEMATOLOGY ORDERABLE S Performing Organization Address City/[facility]/ZIP Co de Phone Number [facility] [place] [address] * POCT Glucose (02/02/2019 10:04 PM EDT) Glucose, POC 188 65 - 199 mg/dL [facility] Comment: Supplemental ranges: <140 mg/dL before meals <180 mg/dL all other times of the day Blood specimen (specimen) 02/02/2019 10:04 PM EDT 02/02/2019 10:04 PM EDT Alessandro Limon DO POINT OF CARE TEST O RDERABLES [facility] [place] [address] * POCT Glucose (02/02/2019 7:54 PM EDT) Glucose, POC 101 65 - 199 mg/dL [facility] Comment: Supplemental ranges: <140 mg/dL before meals <180 mg/dL all other times of the day Blood specimen (specimen) 02/02/2019 7:54 PM EDT 02/02/2019 7:54 PM EDT Alessandro Limon DO POINT OF CARE TEST O RDERABLES Performing Organization Address [facility] Co de Phone Number [facility] [place] [address] * EKG 12 Lead (02/02/2019 7:26 PM EDT) Ventricular rate 65 BPM MUSE SYSTEM Atrial Rate 65 BPM MUSE SYSTEM P-R Interval 192 ms MUSE SYSTEM QRS Duration 116 ms MUSE SYSTEM Q-T Interval 440 ms MUSE SYSTEM QTC Calculated (Bezet) 457 ms MUSE SYSTEM Calculated P [place] 48 degrees MUSE SYSTEM Calculated R [place] -59 degrees MUSE SYSTEM Calculated T [place] 15 degrees MUSE SYSTEM INTERPRETATION Sinus rhythm with Premature atrial complexes Left anterior fascicular block Abnormal ECG When compared with ECG of 01-FEB-2019 01:00, T wave inversion no longer evident in Anterolateral leads Confirmed by MD Phillip Daniel ([id number]) on 02/03/2019 3:52:55 PM MUSE SYSTEM 02/02/2019 7:26 PM EDT 02/03/2019 3:52 PM EDT Alessandro Siddiqi Braxton DO ECG ORDERABLES Performing Organization Address [facility] Co de Phone Number MUSE SYSTEM * CARDIAC CATHETERIZATION (02/02/2019 6:59 PM EDT) Anatomical Region Laterality Modality Other Narrative 02/03/2019 1:49 AM EDT ?[facility] ? Cardiac Catheterization/Intervention Report ? Patient Name: Ethel Bolden P. ? Procedure Date: 02/02/2019 ? A #: [id number] ? Primary Physician: Toro, Bobby T ? Case #: [id number] ? File Name: [id number] ? Catheterization Order Number: [id number] ? [facility] ? Final Report [place], [place] ? Patient Name: ? Ethel P. Tubiello ? ID#: ?[id number] ? : ?1950 ? Procedure Date: ? February 02, 2019 ?Case #: ? [id number] ? Room: ? 2 ? Case Physician: [...] procedure was Urgent. 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 ?Recommend continuing clopidogrel 75 mg PO daily [...] Procedure Note Bobby Engel MD - 06/25/2019 [facility] Cardiac Catheterization/Intervention Report Patient Name: Ethel Bolden Procedure Date: 02/02/2019 A #: [id number] Primary Physician: Bobby Engel Case #: File Name: [id number] Catheterization Order Number: [id number] [facility] FinalReport [place], [place] Patient Name: tEhel Bolden ID#:[id number] :1950 Procedure Date: February 02, 2019 Case #: Room: 2 Case Physician: Bobby T Toro, M.D. Start: 18:00 Fellow: Yeimi Whittaker M.D. [...] patient was designated as ASAClass III. The [facility] clinical frailty scale is 6: Moderately Frail. Diagnostic Tests: Prior Coronary Angiography: LV ejection fraction within 6 months is 55%. Electrocardiography: EKG was assessed by ECG. EKG was Abnormal. EKG showed T-wave inversions. Medications Prior to Procedure: ASA and Statin. Indications for Diagnostic Cath: The priority of the diagnostic procedure was Urgent. 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 Recommend continuing clopidogrel 75 mg PO daily [...] 01:42 Report Last Ammended: 06/25/2019 16:39 Bobby nEgel MD CARDIAC CATH ORDERAB LES * (ABNORMAL) Point of Care Blood Gas Historical (02/02/2019 6:15 PM EDT) pH, POC 7.48(H) 7.35 - 7.45 [facility] pCO2, POC 33(L) 35 - 45 mmHg [facility] pO2, POC 51(L) 85 - 104 mmHg [facility] Base Excess, POC 1.0 -3.0 - 3.0 mmol/L [facility] Bicarbonate, POC 24.9 20.0 - 26.0 mmol/L [facility] Sodium, POC 140 135 - 145 mmol/L [facility] POC Potassium 3.5 3.5 - 5.0 mmol/L [facility] Ionized Calcium, POC 1.15 1.15 - 1.33 mmol/L [facility] POC Hematocrit 41.0 40.0 - 51.0 % [facility] POC Calc Hgb 13.9 13.7 - 17.5 gm/dL [facility] Comment:The calculation of h emoglobin from hematocrit assumes a normal MCHC. POC Bgas Loc CC LAB [facility] Blood specimen (specimen) 02/02/2019 6:15 PM EDT 02/04/2019 1:23 PM EDT Alessandro Limon DO CHEMISTRY ORDERABLES Performing Organization Address [facility] Co de Phone Number [facility] [place] [address] * POCT Glucose (02/02/2019 4:16 PM EDT) Glucose, POC 114 65 - 199 mg/dL [facility] Comment: Supplemental ranges: <140 mg/dL before meals <180 mg/dL all other times of the day Blood specimen (specimen) 02/02/2019 4:16 PM EDT 02/02/2019 4:16 PM EDT Alessandro Limon DO POINT OF CARE TEST O RDERABLES Performing Organization Address City/[facility] Co de Phone Number [facility] [place] [address] * XR Chest One View (02/02/2019 3:30 PM EDT) Anatomical Region Laterality Modality Chest N/A Digital Radiogra phy Impressions 02/02/2019 4:11 PM EDT No interval change. Mild pulmonary edema Thank you for letting us participate in the care of this patient. For questions regarding this report, please contact the number below. ? Electronically signed by: Edinson Woo [facility] ([phone]), at 02/02/2019 4:11 PM Narrative 02/02/2019 4:11 PM EDT EXAMINATION: XR [...] contact the number below. Electronically signed by: Edinson Woo [facility]([phone]), at 02/02/2019 4:11 PM Alessandro Limon DO IMG DX ORDERABLES * (ABNORMAL) BLOOD GAS 2 ARTERIAL (02/02/2019 3:23 PM EDT) pH, Arterial 7.46(H) 7.35 - 7.45 [facility] PCO2, Arterial 32(L) 35 - 45 mmHg [facility] PO2, Arterial 103 85 - 104 mmHg [facility] Bicarbonate, Arterial 22.2 20.0 - 26.0 mmol/L [facility] Base Excess, Arterial -1.5 -3.0 - 3.0 mmol/L [facility] Hgb Blood Gas 14.9 13.7 - 16.5 gm/dL [facility] Oxyhemoglobin, Arterial 97.1(H) 94.0 - 97.0 % [facility] Carboxyhemoglob in, Arterial 0.5 % [facility] Comment: Nonsmokers: 0.5-1.5% COHB Smokers: Variable, but usually less than 10% Toxic: 20-30% COHB Lethal: Greater than 60% COHB Methemoglobin, Arterial 0.3 <=1.5 % [facility] Na Whole Blood 134(L) 135 - 145 mmol/L [facility] K Whole Blood 3.8 3.5 - 5.0 mmol/L [facility] Comment: Please note: Patients with WBC >100,000 may have falsely elevated Potassium levels. Contact the Clinical Chemistry Laboratory if there are any questions. ICa Whole Blood 1.16 1.15 - 1.33 mmol/L [facility] Comment: Note: ??Total bilirubin higher than 20 mg/dL may lead to falsely low ionized calcium. CL Whole Blood 102 98 - 107 mmol/L [facility] Gluc Whole Bld 123 65 - 199 mg/dL [facility] Comment:Diabetes: >=200 mg/d L plus symptoms. Lactate WB 1.3 0.5 - 2.2 mmol/L [facility] FIO2 Art 70 % [facility] PF Ratio Art 147 [facility] Blood specimen (specimen) 02/02/2019 3:23 PM EDT 02/02/2019 3:23 PM EDT Alessandro Limon DO POINT OF CARE TEST O RDERABLES Performing Organization Address [facility]/ZIP Co de Phone Number [facility] [place] [address] * POCT Glucose (02/02/2019 12:44 PM EDT) Pathologist [facility] Glucose, POC 129 65 - 199 mg/dL [facility] Comment: Supplemental ranges: <140 mg/dL before meals <180 mg/dL all other times of the day Blood specimen (specimen) 02/02/2019 12:44 PM EDT 02/02/2019 12:44 PM EDT Alessandro Limon DO POINT OF CARE TEST O RDERABLES Performing Organization Address [facility] Co de Phone Number [facility] [place] [address] * Heparin (unfractionated) Level (02/02/2019 12:33 PM EDT) [facility] UF Heparin 0.29 IU/mL [facility] Comment: Guidelines for therapeutic [...] MD HEMATOLOGY ORDERABLE S Performing Organization Address [facility] Co de Phone Number [facility] [place] [address] * POCT Glucose (02/02/2019 11:31 AM EDT) Glucose, POC 144 65 - 199 mg/dL [facility] Comment: Supplemental ranges: <140 mg/dL before meals <180 mg/dL all other times of the day Blood specimen (specimen) 02/02/2019 11:31 AM EDT 02/02/2019 11:31 AM EDT Alessandro Limon DO POINT OF CARE TEST O RDERABLES Performing Organization Address [facility] de Phone Number [facility] [place] [address] * (ABNORMAL) POCT Glucose (02/02/2019 8:23 AM EDT) Glucose, POC 217(H) 65 - 199 mg/dL [facility] Comment: Supplemental ranges: <140 mg/dL before meals <180 mg/dL all other times of the day Blood specimen (specimen) 02/02/2019 8:23 AM EDT 02/02/2019 8:23 AM EDT Alessandro Limon DO POINT OF CARE TEST O TED Performing Organization Address [facility] Co de Phone Number [facility] [place] [address] * Heparin (unfractionated) Level (02/02/2019 6:12 AM EDT) UF Heparin 0.32 IU/mL [facility] Comment: Guidelines for therapeutic [...] MD HEMATOLOGY ORDERABLE S Performing Organization Address [facility] de Phone Number [facility] [place] [address] * Magnesium (02/02/2019 6:12 AM EDT) Pathologist [facility] Magnesium 0.74 0.69 - 1.07 mmol/L [facility] Blood specimen (specimen) 02/02/2019 6:12 AM EDT 02/02/2019 6:33 AM EDT Narrative Resulting Agency Comment Spec In Lab Alessandro Limon DO CHEMISTRY ORDERABLES Performing Organization Address [facility] de Phone Number [facility] [place] [address] * (ABNORMAL) Basic Metabolic Panel (non-fasting) (02/02/2019 6:12 AM EDT) Glucose 146 65 - 199 mg/dL [facility] Comment:Diabetes: >=200 mg/d L plus symptoms Blood Urea Nitrogen 29(H) 10 - 20 mg/dL [facility] Creatinine 1.64(H) 0.80 - 1.50 mg/dL [facility] Sodium 138 135 - 145 mmol/L [facility] Potassium 3.8 3.5 - 5.0 mmol/L [facility] Comment: Please note: ??Patients with WBC >100,000 may have falsely elevated Potassium levels. ??For accurate Potassium quantification in these patients send serum separator tube (gold top) for subsequent determinations. ??Contact the Clinical Chemistry Laboratory if there are any questions. Chloride 100 98 - 107 mmol/L [facility] Carbon Dioxide 25 22 - 31 mmol/L [facility] Anion Gap 13 5 - 15 mmol/L [facility] Calcium 8.9 8.5 - 10.5 mg/dL [facility] Est Glomerular Filtration Rate 42(L) >=60 mL/min/1. 73 m?? [facility] Comment: The eGFR was calculated using the CKD-EPI equation. As with all creatinine based estimates of kidney function, eGFR values calculated with the CKD-EPI equation are not accurate in patients with acute kidney failure, extremes of body mass or the acutely ill. http://[employer]/[facility] eGFR 48(L) >=60 mL/min/1. 73 m?? [facility] Comment: The eGFR was calculated using the CKD-EPI equation. As with all creatinine based estimates of kidney function, eGFR values calculated with the CKD-EPI equation are not accurate in patients with acute kidney failure, extremes of body mass or the acutely ill. http://[employer]/[facility] Blood specimen (specimen) 02/02/2019 6:12 AM EDT 02/02/2019 6:33 AM EDT Narrative Resulting Agency Comment Spec In Lab Alessandro Limon DO CHEMISTRY ORDERABLES [facility] [place] [address] * (ABNORMAL) Hemogram (02/02/2019 6:12 AM EDT) White Blood Cell 9.7(H) 4.0 - 9.5 x10(3)/mc L [facility] Red Blood Cell 4.52(L) 4.58 - 5.54 x10(6)/mc L [facility] Hemoglobin 14.0 13.7 - 16.5 gm/dL [facility] Hematocrit 42.4 40.5 - 48.5 % [facility] Mean Cell Volume 93.8(H) 82.9 - 93.1 fL [facility] Mean Cell Hemoglobin 31.0 27.5 - 32.1 pg [facility] Mean Cell Hemoglobin Concentration 33.0 32.0 - 35.7 gm/dL [facility] Platelet 206 145 - 357 x10(3)/ L [facility] RDW Standard Deviation 45.8(H) 36.0 - 45.0 [facility] RDW coefficient of variation 13.8 11.4 - 13.8 % [facility] Mean Platelet Volume 9.9 7.6 - 12.9 [facility] NRBC% auto 0.0 % [facility] NRBC Absolute 0.000 0.000 - 0.000 x10(3)/ L [facility] Blood specimen (specimen) 02/02/2019 6:12 AM EDT 02/02/2019 6:33 AM EDT Narrative Resulting Agency Comment Spec In Lab Alessandro Limon DO HEMATOLOGY ORDERABLE S [facility] [place] [address] * POCT Glucose (02/02/2019 6:10 AM EDT) Glucose, POC 139 65 - 199 mg/dL [facility] Comment: Supplemental ranges: <140 mg/dL before meals <180 mg/dL all other times of the day Blood specimen (specimen) 02/02/2019 6:10 AM EDT 02/02/2019 6:10 AM EDT Alessandro Limon DO POINT OF CARE TEST O RDERABLES Performing Organization Address [facility] de Phone Number [facility] [place] [address] * Heparin (unfractionated) Level (02/01/2019 11:42 PM EDT) UF Heparin 0.24 IU/mL [facility] Comment: Guidelines for therapeutic [...] MD HEMATOLOGY ORDERABLE S Performing Organization Address [facility] Co de Phone Number [facility] [place] [address] * XR Chest PA or AP 1 [...] below. ? Electronically signed by: Aarti Bocanegra [facility] ([phone]), at 02/01/2019 10:52 PM Narrative 02/01/2019 10:52 [...] number below. Electronically signed by: Aarti Bocanegra [facility]([phone]), at 02/01/2019 10:52 PM Nadia Haider APRN IMG DX ORDERABLES * POCT Glucose (02/01/2019 8:41 PM EDT) Glucose, POC 111 65 - 199 mg/dL [facility] Comment: Supplemental ranges: <140 mg/dL before meals <180 mg/dL all other times of the day Blood specimen (specimen) 02/01/2019 8:41 PM EDT 02/01/2019 8:41 PM EDT Alessandro Limon DO POINT OF CARE TEST O TED Performing Organization Address [facility] Co de Phone Number [facility] [place] [address] * POCT Glucose (02/01/2019 5:02 PM EDT) Glucose, POC 145 65 - 199 mg/dL [facility] Comment: Supplemental ranges: <140 mg/dL before meals <180 mg/dL all other times of the day Blood specimen (specimen) 02/01/2019 5:02 PM EDT 02/01/2019 5:02 PM EDT Alessandro Limon DO POINT OF CARE TEST O TED Performing Organization Address [facility] de Phone Number [facility] [place] [address] * (ABNORMAL) Troponin (02/01/2019 4:50 PM EDT) Troponin-T 0.08(H) 0.00 - 0.00 ng/mL [facility] Comment: The 99th percentile for Troponin T is less than 0.01 ng/mL, any detectable cTnT concentration using this assay should be considered elevated. According to the third universal definition of myocardial infarction the following criteria with a clinical presentation consistent with acute myocardial ischemia meets the diagnosis for a myocardial infarction ([place]). Detection of a rise and/or fall of cTnT, with at least one value greater than the 99th percentile (> or = 0.01) and with at least one of the following ?? Symptoms of ischemia ?? New or presumed new significant AN-vxnwewc-K wave (ST-T) changes or new left bundle [...] additional sample may be indicated. Reference: [place] Definition of Myocardial Infarction. Journal of the [place] [employer] 2012;60:1581-98 Blood specimen (specimen) 02/01/2019 4:50 PM EDT 02/01/2019 5:14 PM EDT Narrative Resulting Agency Comment Spec In Lab Anabel Duncan MD CHEMISTRY ORDERABLES [facility] [place] [address] * Heparin (unfractionated) Level (02/01/2019 4:50 PM EDT) UF Heparin 0.22 IU/mL [facility] Comment: Guidelines for therapeutic [...] HEMATOLOGY ORDERABLE S Performing Organization Address City/[facility]/ZIP Co de Phone Number [facility] [place] [address] * (ABNORMAL) Magnesium (02/01/2019 3:04 PM EDT) Pathologist [facility] Magnesium 0.68(L) 0.69 - 1.07 mmol/L [facility] Blood specimen (specimen) 02/01/2019 3:04 PM EDT 02/01/2019 3:25 PM EDT Narrative Resulting Agency Comment Spec In Lab Alessandro Limon DO CHEMISTRY ORDERABLES Performing Organization Address [facility] Co de Phone Number [facility] [place] [address] * (ABNORMAL) Basic Metabolic Panel (non-fasting) (02/01/2019 3:04 PM EDT) Pathologist [facility] Glucose 129 65 - 199 mg/dL [facility] Comment:Diabetes: >=200 mg/d L plus symptoms Blood Urea Nitrogen 33(H) 10 - 20 mg/dL [facility] Creatinine 2.05(H) 0.80 - 1.50 mg/dL [facility] Sodium 138 135 - 145 mmol/L [facility] Potassium 4.1 3.5 - 5.0 mmol/L [facility] Comment: Please note: ??Patients with WBC >100,000 may have falsely elevated Potassium levels. ??For accurate Potassium quantification in these patients send serum separator tube (gold top) for subsequent determinations. ??Contact the Clinical Chemistry Laboratory if there are any questions. Chloride 100 98 - 107 mmol/L [facility] Carbon Dioxide 25 22 - 31 mmol/L [facility] Anion Gap 13 5 - 15 mmol/L [facility] Calcium 8.9 8.5 - 10.5 mg/dL [facility] Comment:result rechecked-imm Est Glomerular Filtration Rate 32(L) >=60 mL/min/1. 73 m?? [facility] Comment: The eGFR was calculated using the CKD-EPI equation. As with all creatinine based estimates of kidney function, eGFR values calculated with the CKD-EPI equation are not accurate in patients with acute kidney failure, extremes of body mass or the acutely ill. http://[employer]/[facility] eGFR 37(L) >=60 mL/min/1. 73 m?? [facility] Comment: The eGFR was calculated using the CKD-EPI equation. As with all creatinine based estimates of kidney function, eGFR values calculated with the CKD-EPI equation are not accurate in patients with acute kidney failure, extremes of body mass or the acutely ill. http://[employer]/[facility] Blood specimen (specimen) 02/01/2019 3:04 PM EDT 02/01/2019 3:25 PM EDT Narrative Resulting Agency Comment Spec In Lab Alessandro Limon DO CHEMISTRY ORDERABLES Performing Organization Address City/[facility]/ZIP Co de Phone Number [facility] [place] [address] * POCT Glucose (02/01/2019 11:22 AM EDT) Glucose, POC 116 65 - 199 mg/dL [facility] Comment: Supplemental ranges: <140 mg/dL before meals <180 mg/dL all other times of the day Blood specimen (specimen) 02/01/2019 11:22 AM EDT 02/01/2019 11:22 AM EDT Alessandro Limon DO POINT OF CARE TEST O RDERABLES Performing Organization Address City/[facility]/ZIP Co de Phone Number [facility] [place] [address] * Heparin (unfractionated) Level (02/01/2019 10:58 AM EDT) UF Heparin 0.15 IU/mL [facility] Comment: Guidelines for therapeutic [...] MD HEMATOLOGY ORDERABLE S Performing Organization Address City/State/[facility] Co de Phone Number [facility] [place] [address] * ECHO COMPLETE W CONTRAST (02/01/2019 10:38 AM EDT) Anatomical Region Laterality Modality Other 02/01/2019 Narrative 02/01/2019 10:52 AM EDT Amended Report Procedure: ?Transthoracic Echocardiogram Patient: ?MABLE DAVENPORT P ? (Age): 1950(68y) Med Rec#: ? [id number] ?Sex: ?M ? Site Loc: ? [facility] ?Ht / Wt: ??177(cm)/104(kg) Pt. Loc: ?Adult Floor ? BSA: ?2.2 Study Date: ?? 02/01/2019 ?Pt. Type: Inpatient Tape: ? Referring: Anabel Duncan Reading: Gibson Rooney ([id number]) Underground Miner: Kameron Miller [facility] Diagnosis: *Paroxysmal atrial fibrillation (I48.0) Rhythm: [...] ? Mid-Inferior ?Hypokinetic ? Mid-Inferoseptal ?Hypokinetic ? [place]-Septal ? Hypokinetic ? [place]-Anterior ? Normal ? [place]-Lateral ?Hypokinetic ? [place]-Inferior ? Hypokinetic ? [place]-Tip ?Hypokinetic ? This report has been electronically signed by: Gibson Rooney MD ? 02/01/2019 13:30:01 Images reviewed and interpretation verified [facility] Cardiac Ultrasound [facility] Procedure Note Gibson Rooney MD - 02/01/2019 Amended Report Procedure: Transthoracic Echocardiogram Patient: MABLE DORANTES(Age): 1950(68y) Med Rec#: [id number] Sex: M Site Loc: [facility] Ht / Wt: 177(cm)/104(kg) Pt. Loc: Adult Floor BSA: 2.2 Study Date: 02/01/2019 Pt. Type: Inpatient Tape: Referring: Anabel Duncan Reading: Gibson Rooney ([id number]) Underground Miner: Kameron Miller [facility] Diagnosis: *Paroxysmal atrial fibrillation (I48.0) Rhythm: [...] Hypokinetic Mid-Posterolateral Akinetic Mid-Inferior Hypokinetic Mid-Inferoseptal Hypokinetic [place]-Septal Hypokinetic [place]-Anterior Normal [place]-Lateral Hypokinetic [place]-Inferior Hypokinetic [place]-Tip Hypokinetic This report has been electronically signed by: Gibson Rooney MD 02/01/2019 13:30:01 Images reviewed and interpretation verified [facility]ound [facility] Anabel Duncan MD ECHO ORDERABLES * (ABNORMAL) Troponin (02/01/2019 7:40 AM EDT) Troponin-T 0.08(H) 0.00 - 0.00 ng/mL [facility] Comment: The 99th percentile for Troponin T is less than 0.01 ng/mL, any detectable cTnT concentration using this assay should be considered elevated. According to the third universal definition of myocardial infarction the following criteria with a clinical presentation consistent with acute myocardial ischemia meets the diagnosis for a myocardial infarction ([place]). Detection of a rise and/or fall of cTnT, with at least one value greater than the 99th percentile (> or = 0.01) and with at least one of the following ?? Symptoms of ischemia ?? New or presumed new significant YW-onixsba-H wave (ST-T) changes or new left bundle [...] additional sample may be indicated. Reference: [place] Definition of Myocardial Infarction. Journal of the [place] [employer] 2012;60:1581-98 Blood specimen (specimen) 02/01/2019 7:40 AM EDT 02/01/2019 7:47 AM EDT Narrative Resulting Agency Comment Spec In Lab Nadia Haider APRN CHEMISTRY ORDERABL ES [facility] [place] [address] * (ABNORMAL) Differential, Automated (02/01/2019 7:40 AM EDT) Neutrophil % 77.0 % [facility] Neutrophil Absolute 7.40(H) 1.70 - 6.10 x10(3)/mc L [facility] Lymph % 13.0 % [facility] Lymphocytes Abs 1.2 0.9 - 3.2 x10(3)/mc L [facility] Monocyte % 8.1 % [facility] Monocyte Abs 0.8 0.3 - 0.9 x10(3)/mc L [facility] Eos % 1.2 % [facility] Eosinophils Abs 0.1 0.0 - 0.4 x10(3)/mc L [facility] Basophil % 0.5 % [facility] Baso Absolute 0.0 0.0 - 0.1 x10(3)/mc L [facility] Immature Gran % 0.20 % [facility] Comment: Immature granulocytes(IG's)percentage and absolute count will include metamyelocytes, myelocytes, and promyelocytes. Blood smears from CBCs yielding IG's will be scanned manually for concordance. If this scan disagrees with the automated IG or if promyelocytes are noted, a manual differential will be performed. Immature Gran Absolute 0.02 0.00 - 0.04 x10(3)/mc L [facility] Blood specimen (specimen) 02/01/2019 7:40 AM EDT 02/01/2019 7:47 AM EDT Narrative Resulting Agency Comment Spec In Lab Anabel Duncan MD HEMATOLOGY ORDERABLE S [facility] [place] [address] * (ABNORMAL) Hemogram (02/01/2019 7:40 AM EDT) White Blood Cell 9.6(H) 4.0 - 9.5 x10(3)/ L [facility] Red Blood Cell 4.50(L) 4.58 - 5.54 x10(6)/mc L [facility] Hemoglobin 14.0 13.7 - 16.5 gm/dL [facility] Hematocrit 41.2 40.5 - 48.5 % [facility] Mean Cell Volume 91.6 82.9 - 93.1 fL [facility] Mean Cell Hemoglobin 31.1 27.5 - 32.1 pg [facility] Mean Cell Hemoglobin Concentration 34.0 32.0 - 35.7 gm/dL [facility] Platelet 206 145 - 357 x10(3)/mc L [facility] RDW Standard Deviation 45.5(H) 36.0 - 45.0 fL [facility] RDW coefficient of variation 13.9(H) 11.4 - 13.8 % [facility] Mean Platelet Volume 10.0 7.6 - 12.9 fL [facility] NRBC% auto 0.0 % [facility] NRBC Absolute 0.000 0.000 - 0.000 x10(3)/mc L [facility] Blood specimen (specimen) 02/01/2019 7:40 AM EDT 02/01/2019 7:47 AM EDT Narrative Resulting Agency Comment Spec In Lab Anabel Duncan MD HEMATOLOGY ORDERABLE S Performing Organization Address [facility] de Phone Number [facility] [place] [address] * POCT Glucose (02/01/2019 6:22 AM EDT) [facility] Glucose, POC 121 65 - 199 mg/dL [facility] Comment: Supplemental ranges: <140 mg/dL before meals <180 mg/dL all other times of the day Blood specimen (specimen) 02/01/2019 6:22 AM EDT 02/01/2019 6:22 AM EDT Anabel Duncan MD POINT OF CARE TEST O RDERABLES Performing Organization Address [facility] de Phone Number [facility] [place] [address] * (ABNORMAL) BLOOD GAS 2 ARTERIAL (02/01/2019 4:14 AM EDT) [facility] pH, Arterial 7.46(H) 7.35 - 7.45 [facility] PCO2, Arterial 33(L) 35 - 45 mmHg [facility] PO2, Arterial 122(H) 85 - 104 mmHg [facility] Bicarbonate, Arterial 22.9 20.0 - 26.0 mmol/L [facility] Base Excess, Arterial -1.0 -3.0 - 3.0 mmol/L [facility] Hgb Blood Gas 14.9 13.7 - 16.5 gm/dL [facility] Oxyhemoglobin, Arterial 97.4(H) 94.0 - 97.0 % [facility] Carboxyhemoglob in, Arterial 0.7 % [facility] Comment: Nonsmokers: 0.5-1.5% COHB Smokers: Variable, but usually less than 10% Toxic: 20-30% COHB Lethal: Greater than 60% COHB Methemoglobin, Arterial 0.3 <=1.5 % [facility] Na Whole Blood 134(L) 135 - 145 mmol/L [facility] K Whole Blood 3.7 3.5 - 5.0 mmol/L [facility] Comment: Please note: Patients with WBC >100,000 may have falsely elevated Potassium levels. Contact the Clinical Chemistry Laboratory if there are any questions. ICa Whole Blood 1.16 1.15 - 1.33 mmol/L [facility] Comment: Note: ??Total bilirubin higher than 20 mg/dL may lead to falsely low ionized calcium. CL Whole Blood 103 98 - 107 mmol/L [facility] Gluc Whole Bld 126 65 - 199 mg/dL [facility] Comment:Diabetes: >=200 mg/d L plus symptoms. Lactate WB 1.6 0.5 - 2.2 mmol/L [facility] FIO2 Art 60 % [facility] PF Ratio Art 203 [facility] Blood specimen (specimen) 02/01/2019 4:14 AM EDT 02/01/2019 4:14 AM EDT Anabel Duncan MD POINT OF CARE TEST O RDERABLES [facility] [place] [address] * Heparin (unfractionated) Level (02/01/2019 3:10 AM EDT) UF Heparin 0.17 IU/mL [facility] Comment: Guidelines for therapeutic [...] MD HEMATOLOGY ORDERABLE S Performing Organization Address City/State/[facility] Co de Phone Number [facility] [place] [address] * (ABNORMAL) Differential, Automated (02/01/2019 3:10 AM EDT) Neutrophil % 77.6 % [facility] Neutrophil Absolute 8.18(H) 1.70 - 6.10 x10(3)/mc L [facility] Lymph % 11.9 % [facility] Lymphocytes Abs 1.2 0.9 - 3.2 x10(3)/mc L [facility] Monocyte % 8.5 % [facility] Monocyte Abs 0.9 0.3 - 0.9 x10(3)/mc L [facility] Eos % 1.2 % [facility] Eosinophils Abs 0.1 0.0 - 0.4 x10(3)/mc L [facility] Basophil % 0.4 % [facility] Baso Absolute 0.0 0.0 - 0.1 x10(3)/mc L [facility] Immature Gran % 0.40 % [facility] Comment: Immature granulocytes(IG's)percentage and absolute count will include metamyelocytes, myelocytes, and promyelocytes. Blood smears from CBCs yielding IG's will be scanned manually for concordance. If this scan disagrees with the automated IG or if promyelocytes are noted, a manual differential will be performed. Immature Gran Absolute 0.04 0.00 - 0.04 x10(3)/mc L [facility] Blood specimen (specimen) 02/01/2019 3:10 AM EDT 02/01/2019 3:20 AM EDT Narrative Resulting Agency Comment Spec In Lab Anabel Duncan MD HEMATOLOGY ORDERABLE S [facility] [place] [address] * (ABNORMAL) Hemogram (02/01/2019 3:10 AM EDT) White Blood Cell 10.5(H) 4.0 - 9.5 x10(3)/ L [facility] Red Blood Cell 4.33(L) 4.58 - 5.54 x10(6)/mc L [facility] Hemoglobin 13.5(L) 13.7 - 16.5 gm/dL [facility] Hematocrit 39.7(L) 40.5 - 48.5 % [facility] Mean Cell Volume 91.7 82.9 - 93.1 fL [facility] Mean Cell Hemoglobin 31.2 27.5 - 32.1 pg [facility] Mean Cell Hemoglobin Concentration 34.0 32.0 - 35.7 gm/dL [facility] Platelet 215 145 - 357 x10(3)/mc L [facility] RDW Standard Deviation 45.5(H) 36.0 - 45.0 fL [facility] RDW coefficient of variation 13.8 11.4 - 13.8 % [facility] Mean Platelet Volume 10.0 7.6 - 12.9 fL [facility] NRBC% auto 0.0 % [facility] NRBC Absolute 0.000 0.000 - 0.000 x10(3)/mc L [facility] Blood specimen (specimen) 02/01/2019 3:10 AM EDT 02/01/2019 3:20 AM EDT Narrative Resulting Agency Comment Spec In Lab Anabel Duncan MD HEMATOLOGY ORDERABLE S [facility] [place] [address] * (ABNORMAL) Basic Metabolic Panel (non-fasting) (02/01/2019 3:10 AM EDT) Glucose 116 65 - 199 mg/dL [facility] Comment:Diabetes: >=200 mg/d L plus symptoms Blood Urea Nitrogen 29(H) 10 - 20 mg/dL [facility] Creatinine 1.66(H) 0.80 - 1.50 mg/dL [facility] Sodium 140 135 - 145 mmol/L [facility] Potassium 3.3(L) 3.5 - 5.0 mmol/L [facility] Comment: Please note: ??Patients with WBC >100,000 may have falsely elevated Potassium levels. ??For accurate Potassium quantification in these patients send serum separator tube (gold top) for subsequent determinations. ??Contact the Clinical Chemistry Laboratory if there are any questions. Chloride 108(H) 98 - 107 mmol/L [facility] Carbon Dioxide 21(L) 22 - 31 mmol/L [facility] Anion Gap 11 5 - 15 mmol/L [facility] Calcium 7.1(L) 8.5 - 10.5 mg/dL [facility] Comment:result rechecked- Est Glomerular Filtration Rate 41(L) >=60 mL/min/1. 73 m?? [facility] Comment: The eGFR was calculated using the CKD-EPI equation. As with all creatinine based estimates of kidney function, eGFR values calculated with the CKD-EPI equation are not accurate in patients with acute kidney failure, extremes of body mass or the acutely ill. http://[employer]/[facility] eGFR 48(L) >=60 mL/min/1. 73 m?? [facility] Comment: The eGFR was calculated using the CKD-EPI equation. As with all creatinine based estimates of kidney function, eGFR values calculated with the CKD-EPI equation are not accurate in patients with acute kidney failure, extremes of body mass or the acutely ill. http://[employer]/[facility] Blood specimen (specimen) 02/01/2019 3:10 AM EDT 02/01/2019 3:20 AM EDT Narrative Resulting Agency Comment Spec In Lab Anabel Duncan MD CHEMISTRY ORDERABLES Performing Organization Address [facility] Co de Phone Number [facility] [place] [address] * EKG 12 Lead (02/01/2019 1:00 AM EDT) Ventricular rate 63 BPM MUSE SYSTEM Atrial Rate 63 BPM MUSE SYSTEM P-R Interval 184 ms MUSE SYSTEM QRS Duration 108 ms MUSE SYSTEM Q-T Interval 442 ms MUSE SYSTEM QTC Calculated (Bezet) 452 ms MUSE SYSTEM Calculated P [place] 72 degrees MUSE SYSTEM Calculated R [place] -54 degrees MUSE SYSTEM Calculated T [place] 118 degrees MUSE SYSTEM INTERPRETATION Sinus rhythm with Premature atrial complexes Left axis deviation ST & T wave abnormality, consider anterolateral ischemia Abnormal ECG When compared with ECG of 31-JAN-2019 18:31, (unconfirmed) Atrial bigeminy is no longer present Confirmed by MD Jonatan, Guille Almonte ([id number]) on 02/01/2019 3:56:21 PM MUSE SYSTEM 02/01/2019 1:00 AM EDT 02/01/2019 3:56 PM EDT Nadia Haider APRN ECG ORDERABLES Performing Organization Address [facility] Co de Phone Number MUSE SYSTEM * (ABNORMAL) Troponin (01/31/2019 11:33 PM EDT) Troponin-T 0.07(H) 0.00 - 0.00 ng/mL [facility] Comment: The 99th percentile for Troponin T is less than 0.01 ng/mL, any detectable cTnT concentration using this assay should be considered elevated. According to the third universal definition of myocardial infarction the following criteria with a clinical presentation consistent with acute myocardial ischemia meets the diagnosis for a myocardial infarction ([place]). Detection of a rise and/or fall of cTnT, with at least one value greater than the 99th percentile (> or = 0.01) and with at least one of the following ?? Symptoms of ischemia ?? New or presumed new significant LY-sskujir-G wave (ST-T) changes or new left bundle [...] additional sample may be indicated. Reference: [place] Definition of Myocardial Infarction. Journal of the [place] [employer] 2012;60:1581-98 Blood specimen (specimen) 01/31/2019 11:33 PM EDT 01/31/2019 11:36 PM EDT Narrative Resulting Agency Comment Spec In Lab Anabel Duncan MD CHEMISTRY ORDERABLES Performing Organization Address City/State/[facility] Co de Phone Number [facility] [place] [address] * XR Chest PA or AP 1 [...] below. ? Electronically signed by: Aarti Bocanegra [facility] ([phone]), at 02/01/2019 12:08 AM Narrative 02/01/2019 12:08 [...] number below. Electronically signed by: Aarti Bocanegra [facility]([phone]), at 02/01/2019 12:08 AM Nadia Haider APRN IMG DX ORDERABLES * POCT Glucose (01/31/2019 8:50 PM EDT) [facility] Signature Glucose, POC 145 65 - 199 mg/dL [facility] Comment: Supplemental ranges: <140 mg/dL before meals <180 mg/dL all other times of the day Blood specimen (specimen) 01/31/2019 8:50 PM EDT 01/31/2019 8:50 PM EDT Anabel Duncan MD POINT OF CARE TEST O RDERABLES [facility] [place] [address] * (ABNORMAL) Differential, Automated (01/31/2019 8:36 PM EDT) Neutrophil % 81.4 % [facility] Neutrophil Absolute 9.84(H) 1.70 - 6.10 x10(3)/mc L [facility] Lymph % 8.6 % [facility] Lymphocytes Abs 1.0 0.9 - 3.2 x10(3)/ L [facility] Monocyte % 8.5 % [facility] Monocyte Abs 1.0(H) 0.3 - 0.9 x10(3)/mc L [facility] Eos % 0.8 % [facility] Eosinophils Abs 0.1 0.0 - 0.4 x10(3)/ L [facility] Basophil % 0.3 % [facility] Baso Absolute 0.0 0.0 - 0.1 x10(3)/mc L [facility] Immature Gran % 0.40 % [facility] Comment: Immature granulocytes(IG's)percentage and absolute count will include metamyelocytes, myelocytes, and promyelocytes. Blood smears from CBCs yielding IG's will be scanned manually for concordance. If this scan disagrees with the automated IG or if promyelocytes are noted, a manual differential will be performed. Immature Gran Absolute 0.05(H) 0.00 - 0.04 x10(3)/mc L [facility] Blood specimen (specimen) 01/31/2019 8:36 PM EDT 01/31/2019 8:40 PM EDT Narrative Resulting Agency Comment Spec In Lab Anabel Duncan MD HEMATOLOGY ORDERABLE S Performing Organization Address City/[facility]/ZIP Co de Phone Number [facility] [place] [address] * (ABNORMAL) Hemogram (01/31/2019 8:36 PM EDT) White Blood Cell 12.1(H) 4.0 - 9.5 x10(3)/mc L [facility] Red Blood Cell 4.84 4.58 - 5.54 x10(6)/mc L [facility] Hemoglobin 15.2 13.7 - 16.5 gm/dL [facility] Hematocrit 44.7 40.5 - 48.5 % [facility] Mean Cell Volume 92.4 82.9 - 93.1 fL [facility] Mean Cell Hemoglobin 31.4 27.5 - 32.1 pg [facility] Mean Cell Hemoglobin Concentration 34.0 32.0 - 35.7 gm/dL [facility] Platelet 238 145 - 357 x10(3)/mc L [facility] RDW Standard Deviation 45.2(H) 36.0 - 45.0 [facility] RDW coefficient of variation 13.6 11.4 - 13.8 % [facility] Mean Platelet Volume 9.3 7.6 - 12.9 [facility] NRBC% auto 0.0 % [facility] NRBC Absolute 0.000 0.000 - 0.000 x10(3)/mc L [facility] Blood specimen (specimen) 01/31/2019 8:36 PM EDT 01/31/2019 8:40 PM EDT Narrative Resulting Agency Comment Spec In Lab Anabel Duncan MD HEMATOLOGY ORDERABLE S [facility] [place] [address] * Heparin (unfractionated) Level (01/31/2019 8:36 PM EDT) Pathologist [facility] UF Heparin <0.04 IU/mL [facility] Comment: Guidelines for therapeutic [...] Lab Anabel Duncan MD HEMATOLOGY ORDERABLE S [facility] [place] [address] * EKG 12 Lead (01/31/2019 4:28 PM EDT) Pathologist [facility] Ventricular rate 70 BPM MUSE SYSTEM Atrial Rate 70 BPM MUSE SYSTEM P-R Interval 218 ms MUSE SYSTEM QRS Duration 106 ms MUSE SYSTEM Q-T Interval 416 ms MUSE SYSTEM QTC Calculated (Bezet) 449 ms MUSE SYSTEM Calculated P [place] 46 degrees MUSE SYSTEM Calculated R [place] -61 degrees MUSE SYSTEM Calculated T [place] 131 degrees MUSE SYSTEM INTERPRETATION Sinus rhythm with 1st degree A-V block Occasional Premature ventricular complexes and Premature atrial complexes Left axis deviation ST & T wave abnormality, consider anterolateral ischemia Abnormal ECG When compared with ECG of 31-JAN-2019 11:21, (unconfirmed) Sinus rhythm has replaced Atrial flutter T wave inversion now evident in Anterior leads Confirmed by MD Jonatan, Guille Almonte ([id number]) on 02/01/2019 3:45:40 PM MUSE SYSTEM 01/31/2019 4:28 PM EDT 02/01/2019 3:45 PM EDT Anabel Duncan MD ECG ORDERABLES Performing Organization Address City/[facility]/ZIP Co de Phone Number MUSE SYSTEM * CK (01/31/2019 4:20 PM EDT) Creatine Kinase 127 0 - 200 unit/L [facility] Blood specimen (specimen) Venous Draw / Unknown 01/31/2019 4:20 PM EDT 01/31/2019 6:02 PM EDT Narrative Resulting Agency Comment Spec In Lab Anabel Duncan MD CHEMISTRY ORDERABLES Performing Organization Address [facility] Co de Phone Number [facility] [place] [address] * Lavender Tube HOLD (01/31/2019 4:20 PM EDT) Lavender Hold Sample in lab. [facility] Blood specimen (specimen) Venous Draw / Unknown 01/31/2019 4:20 PM EDT 01/31/2019 4:37 PM EDT Rocky Wong MD HEMATOLOGY ORDERABL ES Performing Organization Address [facility] Co de Phone Number [facility] [place] [address] * (ABNORMAL) Basic Metabolic Panel (non-fasting) (01/31/2019 4:20 PM EDT) Glucose 131 65 - 199 mg/dL [facility] Comment:Diabetes: >=200 mg/d L plus symptoms Blood Urea Nitrogen 28(H) 10 - 20 mg/dL [facility] Creatinine 2.12(H) 0.80 - 1.50 mg/dL [facility] Sodium 139 135 - 145 mmol/L [facility] [...] questions. Chloride 100 98 - 107 mmol/L [facility] Carbon Dioxide 27 22 - 31 mmol/L [facility] Anion Gap 12 5 - 15 mmol/L [facility] Calcium 9.6 8.5 - 10.5 mg/dL [facility] Est Glomerular Filtration Rate 31(L) >=60 mL/min/1. 73 m?? [facility] Comment: The eGFR was calculated using the CKD-EPI equation. As with all creatinine based estimates of kidney function, eGFR values calculated with the CKD-EPI equation are not accurate in patients with acute kidney failure, extremes of body mass or the acutely ill. http://[employer] eGFR 35(L) >=60 mL/min/1. 73 m?? [facility] Comment: The eGFR was calculated using the CKD-EPI equation. As with all creatinine based estimates of kidney function, eGFR values calculated with the CKD-EPI equation are not accurate in patients with acute kidney failure, extremes of body mass or the acutely ill. http://[employer]/DHMCnkf Blood specimen (specimen) 01/31/2019 4:20 PM EDT 01/31/2019 4:37 PM EDT Narrative Resulting Agency Comment Spec In Lab Anabel Duncan MD CHEMISTRY ORDERABLES [facility] [place] [address] * (ABNORMAL) Troponin (01/31/2019 4:20 PM EDT) Troponin-T 0.04(H) 0.00 - 0.00 ng/mL [facility] Comment: Called by: MANE, Read back by: Azeb Bartlett, Date/Time:01/31/19 17:34. The 99th percentile for Troponin T is less than 0.01 ng/mL, any detectable cTnT concentration using this assay should be considered elevated. According to the third universal definition of myocardial infarction the following criteria with a clinical presentation consistent with acute myocardial ischemia meets the diagnosis for a myocardial infarction ([place]). Detection of a rise and/or fall of cTnT, with at least one value greater than the 99th percentile (> or = 0.01) and with at least one of the following ?? Symptoms of ischemia ?? New or presumed new significant MQ-nnocure-U wave (ST-T) changes or new left bundle [...] additional sample may be indicated. Reference: [place] Definition of Myocardial Infarction. Journal of the [place] [employer] 2012;60:1581-98 Blood specimen (specimen) 01/31/2019 4:20 PM EDT 01/31/2019 4:37 PM EDT Narrative Resulting Agency Comment Spec In Lab Mundo Yeung MD CHEMISTRY ORDERABLES [facility] [place] [address] * US Renal Transplant Left (01/31/2019 2:34 [...] contact the number below. Electronically signed by: Jolly Payne [facility] ([phone]), at 01/31/2019 2:40 PM ? Jolly Payne, Staff Physician Electronically Signed Final Report ?? 01/31/2019 02:47 pm Narrative 01/31/2019 2:47 PM EDT Transplant ?(Signed Final 01/31/2019 02:47 pm) PATIENT INFO: ID #: ? [id number] ? : 46 (68 yrs) Name: ? ETHEL BOLDEN ? Visit Date:01/31/2019 02:30 pm PERFORMED BY: Performed By: ? Osmar Dowd RDMS Attending: ?Kerry GERBER, Jolly Toth Referred By: ?MUNDO YEUNG Location: ? [facility] SERVICE(S) PROVIDED: ??URTPL - Renal Transplant - Left - [id number] ?[id number] INDICATIONS: ??h/o kidney transplant in 2016. decreased [...] ?Patent Mid: ? Patent Distal: ?Patent LEFT Alutiiq Iliac ? Waveform ?? Artery To Anastomos ?is Proximal: ?Patent LEFT Alutiiq Iliac ? Waveform ?Vein To Anastomos ?is Proximal: ?Patent PARENCHYMAL EVALUATION: RIGHT ?Arcuate ? RI ??Waveform ?Artery Upper Pole: ?0.6 Patent Mid Pole: ?0.6 Patent Lower Pole: ?0.6 Patent URINARY BLADDER: Comment: ?Partially distended and unremarkable. Procedure Note YeJolly petersen MD - 01/31/2019 Transplant (Signed Final 01/31/2019 02:47pm) PATIENT INFO: ID #: [id number] : 46 (68 yrs) Name: ETHEL Gomez SHAKIRAANALO Visit Date:01/31/2019 02:30 pm PERFORMED BY: Performed By: Osmar Dowd RDMS Attending: Jolly Payne MD Referred By: MUNDO YEUNG Location: [facility] SERVICE(S) PROVIDED: URTPL - Renal Transplant - Left - [id number] INDICATIONS: h/o kidney transplant in 2016. decreased [...] Proximal: Patent Mid: Patent Distal: Patent LEFT Alutiiq Iliac Waveform Artery To Anastomos is Proximal: Patent LEFT Alutiiq Iliac Waveform Vein To Anastomos is Proximal: [...] contact the number below. Electronically signed by: Jolly Payne [facility] ([phone]), at 01/31/2019 2:40 PM Jolly Payne, Staff Physician Electronically Signed Final [...] the number below. ? Electronically signed by: Edinson Woo [facility] ([phone]), at 01/31/2019 12:47 PM Narrative 01/31/2019 12:47 PM EDT EXAMINATION: XR [...] contact the number below. Electronically signed by: Edinson Woo [facility]([phone]), at 01/31/2019 12:47 PM Mundo Yeung MD IMG DX ORDERABLES * Urinalysis Microscopic Exam (01/31/2019 11:57 AM EDT) RBC, Urine 2 0 - 3 /HPF [facility] WBC, Urine 1 0 - 3 /HPF [facility] Urine specimen (specimen) 01/31/2019 11:57 AM EDT 01/31/2019 12:34 PM EDT Narrative Resulting Agency Comment Spec In Lab Rocky Wong MD URINE ORDERABLES [facility] [place] [address] * Gold Tube HOLD (01/31/2019 11:57 AM EDT) Gold Hold Sample in lab. [facility] Blood specimen (specimen) Venous Draw / Unknown 01/31/2019 11:57 AM EDT 01/31/2019 12:31 PM EDT Rocky Wong MD CHEMISTRY ORDERABLE S Performing Organization Address City/[facility]/ZIP Co de Phone Number [facility] [place] [address] * Blue Tube HOLD (01/31/2019 11:57 AM EDT) Pathologist [facility] Blue Hold Sample in lab. [facility] Blood specimen (specimen) Venous Draw / Unknown 01/31/2019 11:57 AM EDT 01/31/2019 12:32 PM EDT Rocky Wong MD HEMATOLOGY ORDERABL ES Performing Organization Address [facility] Co de Phone Number [facility] [place] [address] * (ABNORMAL) Differential, Automated (01/31/2019 11:57 AM EDT) [facility] Neutrophil % 74.9 % [facility] Neutrophil Absolute 8.74(H) 1.70 - 6.10 x10(3)/mc L [facility] Lymph % 15.8 % [facility] Lymphocytes Abs 1.8 0.9 - 3.2 x10(3)/mc L [facility] Monocyte % 7.6 % [facility] Monocyte Abs 0.9 0.3 - 0.9 x10(3)/mc L [facility] Eos % 1.0 % [facility] Eosinophils Abs 0.1 0.0 - 0.4 x10(3)/mc L [facility] Basophil % 0.4 % [facility] Baso Absolute 0.0 0.0 - 0.1 x10(3)/mc L [facility] Immature Gran % 0.30 % [facility] Comment: Immature granulocytes(IG's)percentage and absolute count will include metamyelocytes, myelocytes, and promyelocytes. Blood smears from CBCs yielding IG's will be scanned manually for concordance. If this scan disagrees with the automated IG or if promyelocytes are noted, a manual differential will be performed. Immature Gran Absolute 0.04 0.00 - 0.04 x10(3)/ L [facility] Blood specimen (specimen) 01/31/2019 11:57 AM EDT 01/31/2019 12:30 PM EDT Narrative Resulting Agency Comment Spec In Lab Rocky Wong MD HEMATOLOGY ORDERABL ES [facility] [place] [address] * (ABNORMAL) Hemogram (01/31/2019 11:57 AM EDT) White Blood Cell 11.7(H) 4.0 - 9.5 x10(3)/[facility] Red Blood Cell 5.41 4.58 - 5.54 x10(6)/[facility] Hemoglobin 17.0(H) 13.7 - 16.5 gm/dL [facility] Hematocrit 49.8(H) 40.5 - 48.5 % [facility] Mean Cell Volume 92.1 82.9 - 93.1 fL [facility] Mean Cell Hemoglobin 31.4 27.5 - 32.1 pg [facility] Mean Cell Hemoglobin Concentration 34.1 32.0 - 35.7 gm/dL [facility] Platelet 295 145 - 357 x10(3)/[facility] RDW Standard Deviation 46.0(H) 36.0 - 45.0 fL [facility] RDW coefficient of variation 13.9(H) 11.4 - 13.8 % [facility] Mean Platelet Volume 9.9 7.6 - 12.9 fL [facility] NRBC% auto 0.0 % [facility] NRBC Absolute 0.000 0.000 - 0.000 x10(3)/mc L [facility] Blood specimen (specimen) 01/31/2019 11:57 AM EDT 01/31/2019 12:30 PM EDT Narrative Resulting Agency Comment Spec In Lab Rocky Wong MD HEMATOLOGY ORDERABL ES Performing Organization Address City/[facility]/ZIP Co de Phone Number [facility] [place] [address] * Electrolytes, urine, random (01/31/2019 11:57 AM EDT) Sodium, Urine <20 mmol/L [facility] Potassium, Urine 39 mmol/L [facility] Chloride, Urine <20 mmol/L [facility] Urine specimen (specimen) 01/31/2019 11:57 AM EDT 01/31/2019 12:34 PM EDT Narrative Resulting Agency Comment Spec In Lab Mundo Yeung MD URINE ORDERABLES Performing Organization Address [facility]/ZIP Co de Phone Number [facility] [place] [address] * (ABNORMAL) Troponin (01/31/2019 11:57 AM EDT) Troponin-T 0.03(H) 0.00 - 0.00 ng/mL [facility] Comment: Called by: GIACOMO, Read back by: Zehra Bartlett, Date/Time:01/31/19 13:15. The 99th percentile for Troponin T is less than 0.01 ng/mL, any detectable cTnT concentration using this assay should be considered elevated. According to the third universal definition of myocardial infarction the following criteria with a clinical presentation consistent with acute myocardial ischemia meets the diagnosis for a myocardial infarction ([place]). Detection of a rise and/or fall of cTnT, with at least one value greater than the 99th percentile (> or = 0.01) and with at least one of the following ?? Symptoms of ischemia ?? New or presumed new significant NI-qlgrisj-Y wave (ST-T) changes or new left bundle [...] additional sample may be indicated. Reference: [place] Definition of Myocardial Infarction. Journal of the [place] [employer] 2012;60:1581-98 Blood specimen (specimen) 01/31/2019 11:57 AM EDT 01/31/2019 12:30 PM EDT Narrative Resulting Agency Comment Spec In Lab Mundo Yeung MD CHEMISTRY ORDERABLES [facility] [place] [address] * (ABNORMAL) Urinalysis with reflex Culture (01/31/2019 11:57 AM EDT) Glucose, Urine Dipstick Negative Negative mg/dL [facility] Protein, Urine Dipstick 100(A) Negative mg/dL [facility] Bilirubin, [...] HOSPITAL LABORATORY Leukocytes, Urine Dipstick Negative Negative [facility] Appearance, Urine Dipstick Clear Clear [facility] Specific [place] Urine Automated 1.023 1.002 - 1.030 [facility] Color, Urine Dipstick Yellow Yellow [facility] Reflex to Culture No [facility] Urine specimen (specimen) 01/31/2019 11:57 AM EDT 01/31/2019 12:34 PM EDT Narrative Resulting Agency Comment Spec In Lab Mundo Yeung MD URINE ORDERABLES [facility] [place] [address] * (ABNORMAL) Basic Metabolic Panel (non-fasting) (01/31/2019 11:57 AM EDT) Glucose 151 65 - 199 mg/dL [facility] Comment:Diabetes: >=200 mg/d L plus symptoms Blood Urea Nitrogen 29(H) 10 - 20 mg/dL [facility] Creatinine 1.82(H) 0.80 - 1.50 mg/dL [facility] Sodium 136 135 - 145 mmol/L [facility] Potassium 4.1 3.5 - 5.0 mmol/L [facility] Comment: Please note: ??Patients with WBC >100,000 may have falsely elevated Potassium levels. ??For accurate Potassium quantification in these patients send serum separator tube (gold top) for subsequent determinations. ??Contact the Clinical Chemistry Laboratory if there are any questions. Chloride 96(L) 98 - 107 mmol/L [facility] Carbon Dioxide 26 22 - 31 mmol/L [facility] Anion Gap 14 5 - 15 mmol/L [facility] Calcium 10.1 8.5 - 10.5 mg/dL [facility] Est Glomerular Filtration Rate 37(L) >=60 mL/min/1. 73 m?? [facility] Comment: The eGFR was calculated using the CKD-EPI equation. As with all creatinine based estimates of kidney function, eGFR values calculated with the CKD-EPI equation are not accurate in patients with acute kidney failure, extremes of body mass or the acutely ill. http://[employer]/[facility] STR[facility]Dnkf eGFR 43(L) >=60 mL/min/1. 73 m?? [facility] Comment: The eGFR was calculated using the CKD-EPI equation. As with all creatinine based estimates of kidney function, eGFR values calculated with the CKD-EPI equation are not accurate in patients with acute kidney failure, extremes of body mass or the acutely ill. http://[employer]/DHMCnkf Blood specimen (specimen) 01/31/2019 11:57 AM EDT 01/31/2019 12:30 PM EDT Narrative Resulting Agency Comment Spec In Lab Mundo Yeung MD CHEMISTRY ORDERABLES Performing Organization Address City/[facility] Co de Phone Number [facility] [place] [address] * EKG 12 Lead (01/31/2019 11:21 AM EDT) Ventricular rate 147 BPM MUSE SYSTEM Atrial Rate 294 BPM MUSE SYSTEM QRS Duration 100 ms MUSE SYSTEM Q-T Interval 334 ms MUSE SYSTEM QTC Calculated (Bezet) 522 ms MUSE SYSTEM Calculated R [place] -58 degrees MUSE SYSTEM Calculated T [place] 68 degrees MUSE SYSTEM INTERPRETATION Atrial flutter with 2:1 A-V conduction Left anterior fascicular block Nonspecific ST and T wave abnormality Abnormal ECG When compared with ECG of 04-NOV-2017 12:43, Significant changes have occurred Confirmed by MD SARA, LARRY ([id number]) on 01/31/2019 5:35:44 PM MUSE SYSTEM 01/31/2019 11:2 1 AM EDT 01/31/2019 5:35 PM EDT Mudno Yeung MD ECG ORDERABLES MUSE SYSTEM documented [...] response: Approved indication of non-valvular atrial fibrillation 9654 (Given - Provider: Emmy Purdy RN) 0827 [...] JADEN) 09 (Given - Provider: Shannan Aguillon, JADEN)1549 (Given - Provider: Shannan Aguillon, RN) aspirin [...] 0949 (Given - Provider: Barron Epstein RN) 08 (Given - Provider: Emmy Purdy, RN) 0928 [...] 08 (Given - Provider: Emmy Purdy, JADEN) 0928 (Given - Provider: Shannan Aguillon RN) [...] Contraindicated)2040 (Given - Provider: Betzaida Sparks RN) 09 (Given - Provider: Emmy Purdy, JADEN)2201 (Given - Provider: Jovanna Abrams, RN) 09 (Given - Provider: Shannan Aguillon, RN) tacrolimus [...] Betzaida Sparks, JADEN)1344 (Stopped - Provider: Emmy Purdy, JADEN) heparin [...] Routine documented in this encounter Care Teams Java Golden Gate Developer Relationship Specialty Start Date End Date Urbano Denis DO [address] [place] [address] [address] [place] [address] PCP - General 09/03/12 03/17/22 Hai STANLEY,Ruchi Nurse Clinic Transplant Surgery 07/30/15 documented as of this encounter
--- OUTSIDE RECORDS SUMMARY | 2024-05-16 17:25 | XMS_ITS | Encounter Summary ---
Author Organization [facility]ly [facility] [place] [address] Care Team Providers Care Organ Tuner Electronic Name Role Phone AdeelUrbano toscano Primary Care Provider Reason for Visit * Reason Comments Medication Refill Encounter Details Date Type Department Care Team (Late st Contact Info) Description 01/17/2019 Refill [place] [address] Tal Eagle MD [facility] [place] [address] Social History Tobacco Use Types Packs/Day Years [...] EST TH Visit (TeleHealth) Cardiology at [address] [phone] Byron Brown MD [facility] [place] [address] 07/14/2024 10:00 AM [facility] Hospital Encounter Non-Invasive [place] [id number] Arrived documented as of this encounter Goals [...] on filedocumented in this encounter Care Teams Organ Tuner Electronic Relationship Specialty Start Date End Date Urbano Denis DO [address] [place] [address] [facility] [address] [place] [address] PCP - General 09/03/12 03/17/22 Ruchi Valles RN Nurse Clinic Transplant Surgery 07/30/15 documented as of this encounter
--- OUTSIDE RECORDS SUMMARY | 2024-05-16 17:25 | XMS_ITS | Encounter Summary ---
Author Organization [facility] [place] [address] Care Team Providers Care Exec. Creative Director Name Role Phone Adeel Urbano KIRBY Primary Care Provider [phone] Encounter Details Date Type Department Care Team (Latest Contact Info) Description 09/15/2018 9:40 AM EDT Laboratory Appointment Lab [address] [place] [phone] Kidney replaced by transplant; Vitamin D deficiency [...] EST TH Visit (TeleHealth) Cardiology at [address] [phone] Byron Brown MD [facility] [place] [address] 07/14/2024 10:00 AM EST Hospital Encounter Non-[place] [address] Arrived documented as of this encounter Goals [...] 9:53 AM EDT) Neutrophil % 69.8 % [facility] Neutrophil Absolute 5.87 1.70 - 6.10 x10(3)/[facility] Lymph % 17.8 % [facility] Lymphocytes Abs 1.5 0.9 - 3.2 x10(3)/[facility] LABOR[facility]ORY Monocyte % 8.4 % [facility] Monocyte Abs 0.7 0.3 - 0.9 x10(3)/[facility] Eos % 2.9 % [facility] Eosinophils Abs 0.2 0.0 - 0.4 x10(3)/[facility] Basophil % 0.7 % [facility] [...] - 0.04 x10(3)/[facility] Blood specimen (specimen) 09/15/2018 9:53 AM EDT 09/15/2018 10:01 AM EDT Narrative Resulting Agency Comment Spec In Lab Tal Eagle MD HEMATOLOGY ORDERA BLES [facility] [place] [address] * (ABNORMAL) Hemogram (09/15/2018 9:53 AM EDT) White Blood Cell 8.4 4.0 - 9.5 x10(3)/mc L [facility] Red Blood Cell 5.44 4.58 - 5.54 x10(6)/mc L [facility] Hemoglobin 16.4 13.7 - 16.5 gm/dL [facility] Hematocrit 48.8(H) 40.5 - 48.5 % [facility] Mean Cell Volume 89.7 82.9 - 93.1 fL [facility] Mean Cell Hemoglobin 30.1 27.5 - 32.1 pg [facility] Mean Cell Hemoglobin Concentration 33.6 32.0 - 35.7 gm/dL [facility] Platelet 272 145 - 357 x10(3)/mc L [facility] RDW Standard Deviation 41.9 36.0 - 45.0 fL [facility] RDW coefficient of variation 12.9 11.4 - 13.8 % [facility] Mean Platelet Volume 9.7 7.6 - 12.9 fL [facility] NRBC% auto 0.0 % [facility] NRBC Absolute 0.000 0.000 - 0.000 x10(3)/mc L [facility] Blood specimen (specimen) 09/15/2018 9:53 AM EDT 09/15/2018 10:01 AM EDT Narrative Resulting Agency Comment Spec In Lab Tal Eagle MD HEMATOLOGY ORDERA BLES Performing Organization Address City/State/[facility] Co de Phone Number [facility] [place] [address] * BKV Quant Blood (09/15/2018 9:53 AM EDT) BKV Blood Result Not Detected [facility] BKV Blood Interp BK Virus Plasma Result Interpretation Result: BK Virus not detected Specimen type: plasma Assay Range: 2.80-7.80 log copies/mL (6.28x10^2 - 6.28x10^7 copies/mL) Methods: Quantitative real-time polymerase chain reaction (PCR) of viral DNA isolated from plasma was performed using [employer] BKV analyte-specific reagents and the [employer] System that automates both nucleic acid isolation [...] its performance characteristics determined by the Clinical [employer] ([facility]) Laboratory at [facility]. It has not been cleared or approved by the FDA. The laboratory is regulated under CLIA as qualified to perform high-complexity testing. This test is used for clinical purposes. It should not be regarded as investigational or for research. [facility] Comment: [VERIFIED DATE]09.23.18 Verified By:Tal Cleaning (Electronic Signature) Blood specimen (specimen) 09/15/2018 9:53 AM EDT 09/15/2018 11:12 AM EDT Narrative Resulting Agency Comment Spec In Lab Tal Eagle MD MOLECULAR ORDERAB LES Performing Organization Address [facility]/ZIP Co de Phone Number [facility] [place] [address] * (ABNORMAL) 1,25-dihydroxycholecalciferol (09/15/2018 9:53 AM EDT) [facility] Vit D 1,25 Dihydroxy (NOVEMBER) 70(H) 18 - 64 pg/mL [facility] Comment: ADDITIONAL INFORMATION This test was developed and its performance characteristics determined by [facility] in a manner consistent with CLIA requirements. This test has not been cleared or approved by the U.S. Food and Drug Administration. Test Performed by: [facility] [address] [place] [address] Blood specimen (specimen) 09/15/2018 9:53 AM EDT 09/15/2018 1:05 PM EDT Narrative Resulting Agency Comment Spec In Lab Tal Eagle MD LAB SEND OUT ORDE RABLES Performing Organization Address [facility]/ZIP Co de Phone Number [facility] [place] [address] * (ABNORMAL) CMP w/fasting Glucose (09/15/2018 9:53 AM EDT) [facility] Glucose Fasting 151(H) 65 - 99 mg/dL [facility] Creatinine 1.23 0.80 - 1.50 mg/dL [facility] Sodium 140 135 - 145 mmol/L [facility] Potassium 3.8 3.5 - 5.0 mmol/L [facility] Comment: Please note: ??Patients with WBC >100,000 may have falsely elevated Potassium levels. ??For accurate Potassium quantification in these patients send serum separator tube (gold top) for subsequent determinations. ??Contact the Clinical Chemistry Laboratory if there are any questions. Chloride 97(L) 98 - 107 mmol/L [facility] Carbon Dioxide 32(H) 22 - 31 mmol/L [facility] Anion Gap 11 5 - 15 mmol/L [facility] Calcium 10.0 8.5 - 10.5 mg/dL [facility] Protein, Total 7.7 6.1 - 8.0 gm/dL [facility] Albumin 4.3 3.2 - 5.2 gm/dL [facility] Aspartate Aminotransferase 20 0 - 39 unit/L [facility] Alanine Aminotransferase 22 0 - 55 unit/L [facility] Alkaline Phosphatase 78 40 - 120 unit/L [facility] Bilirubin, Total 2.9(H) 0.2 - 1.3 mg/dL [facility] [...] of body mass or the acutely ill. http://Claim[employer]/[facility]f eGFR 69 >=60 mL/min/1. 73 m?? [facility] Comment: The eGFR was calculated using the CKD-EPI equation. As with all creatinine based estimates of kidney function, eGFR values calculated with the CKD-EPI equation are not accurate in patients with acute kidney failure, extremes of body mass or the acutely ill. http://Claim[employer]/[facility]ONnkf Blood specimen (specimen) 09/15/2018 9:53 AM EDT 09/15/2018 10:01 AM EDT Narrative Resulting Agency Comment Spec In Lab Tal Eagle MD CHEMISTRY ORDERAB LES Performing Organization Address City/[facility] Co de Phone Number [facility] [place] [address] * Gold Tube HOLD (09/15/2018 9:53 AM EDT) Gold Hold Sample in lab. [facility] Blood specimen (specimen) 09/15/2018 9:53 AM EDT 09/15/2018 10:00 AM EDT Tal Eagle MD CHEMISTRY ORDERAB LES Performing Organization Address [facility] Co de Phone Number [facility] [place] [address] * (ABNORMAL) Hemoglobin A1c (09/15/2018 9:53 AM EDT) Hemoglobin A1c 6.6(H) 4.3 - 5.6 % [facility] Comment: Reference Range: [...] [id number] Estimated Average Glucose See note mg/dL [facility] Comment: Estimated Average [...] into estimated average glucose values. ??Diabetes Care 2008:31(8):7939-2121. Blood specimen (specimen) 09/15/2018 9:53 AM EDT 09/15/2018 10:01 AM EDT Narrative Resulting Agency Comment Spec In Lab Tal Eagle MD CHEMISTRY ORDERAB LES [facility] [place] [address] * Lavender Tube HOLD (09/15/2018 9:53 AM EDT) [facility] Lavender Hold Sample in lab. [facility] Blood specimen (specimen) 09/15/2018 9:53 AM EDT 09/15/2018 10:01 AM EDT Tal Eagle MD HEMATOLOGY ORDERA BLES [facility] [place] [address] * Lipid Panel (09/15/2018 9:53 AM EDT) Cholesterol, Total 151 mg/dL [facility] Comment: Lower Risk: <200 mg/dL Average Risk: 200-239 mg/dL Higher Risk: >ze=025 mg/dL Triglyceride 166 mg/dL [facility] Comment: Average Risk/Lower Risk: <150 mg/dL Borderline High Risk: 150-199 mg/dL High Risk: 200-499 mg/dL Very High Risk: >uv=623 mg/dL HDL Cholesterol 40 mg/dL [facility] Comment: Males: ?? Higher Risk: <40 mg/dL Females: ?? HIgher Risk: <50 mg/dL LDL Cholesterol 78 mg/dL [facility] Comment: Lowest Risk: <100 mg/dL Lower Risk: 100-129 mg/dL Borderline High Risk: 130-159 mg/dL High Risk: 160-189 mg/dL Very High Risk: >eo=501 mg/dL Cholesterol/HDL Ratio 3.8 ratio [facility] Lipid Interpretation See Note [facility] Comment: Lipid management should be guided by a patient? s ASCVD risk, goals and preferences. ACC/AHA Guidelines recommend high intensity statin if clinical ASCVD or LDL greater than or equal to 190 mg/dL. http://tinyurl.com/PYN-MMS-Qdtfpljtj Adults aged 40-75 with LDL 70-189 mg/dL should have their 10 year ASCVD risk estimated with the ACC/AHA ASCVD risk commercial estimator http://tools.acc.org/LQFML-Kpem-Nipztlmyk/ Statin should be discussed if risk greater [...] CHEMISTRY ORDERAB LES Performing Organization Address City/[facility] Co de Phone Number [facility] [place] [address] * Magnesium (09/15/2018 9:53 AM EDT) Magnesium 0.71 0.69 - 1.07 mmol/L [facility] Blood specimen (specimen) 09/15/2018 9:53 AM EDT 09/15/2018 10:01 AM EDT Narrative Resulting Agency Comment Spec In Lab Tal Eagle MD CHEMISTRY ORDERAB LES Performing Organization Address [facility] Co de Phone Number [facility] [place] [address] * Phosphorus (09/15/2018 9:53 AM EDT) Phosphorus 3.2 2.5 - 4.5 mg/dL [facility] Blood specimen (specimen) 09/15/2018 9:53 AM EDT 09/15/2018 10:01 AM EDT Narrative Resulting Agency Comment Spec In Lab Tal Eagle MD CHEMISTRY ORDERAB LES Performing Organization Address City/[facility] Co de Phone Number [facility] [place] [address] * (ABNORMAL) PTH (09/15/2018 9:53 AM EDT) Parathyroid Hormone 78(H) 15 - 65 pg/mL [facility] Blood specimen (specimen) 09/15/2018 9:53 AM EDT 09/15/2018 10:01 AM EDT Narrative Resulting Agency Comment Spec In Lab Tal Eagle MD CHEMISTRY ORDERAB LES Performing Organization Address [facility] de Phone Number [facility] [place] [address] * Reticulocyte Count (09/15/2018 9:53 AM EDT) Reticulocyte % 2.0 0.7 - 2.6 % [facility] Retic Abs # 0.110 0.030 - 0.120 x10(6)/mcL [facility] Immature Retic% 8.1 0.0 - 15.6 % [facility] Reticulated Hgb 35.9 31.3 - 40.2 pg [facility] Blood specimen (specimen) 09/15/2018 9:53 AM EDT 09/15/2018 10:01 AM EDT Narrative Resulting Agency Comment Spec In Lab Tal Eagle MD HEMATOLOGY ORDERA BLES Performing Organization Address [facility] de Phone Number [facility] [place] [address] * Tacrolimus level (09/15/2018 9:53 AM EDT) Tacrolimus 7.8 ng/mL [facility] Comment: Trough therapeutic: ??5-15 ng/mL Performed by ultra-performance liquid chromatography tandem mass spectrometry (UPLCMS/MS). This test was developed and its performance characteristics determined by [facility]. It has not been cleared or approved [...] Address City/[facility]/ZIP Co de Phone Number [facility] [place] [address] * Uric acid (09/15/2018 9:53 AM EDT) Uric Acid 8.1 3.5 - 8.5 mg/dL [facility] Blood specimen (specimen) 09/15/2018 9:53 AM EDT 09/15/2018 10:01 AM EDT Narrative Resulting Agency Comment Spec In Lab Tal Eagle MD CHEMISTRY ORDERAB LES Performing Organization Address [facility] Co de Phone Number [facility] [place] [address] * (ABNORMAL) Vitamin D, 25-Hydroxy (09/15/2018 9:53 AM EDT) Vitamin D Total 25 OH 19(L) 30 - 100 ng/mL [facility] Comment: Deficient <10 ng/mL Insufficient 10 to 29 ng/mL Sufficient 30 to 100 ng/mL Potential Intoxication >100 ng/mL According to the [place] National Osteoporosis Foundation, Vitamin D concentrations >30 ng/mL are sufficient to protect bone health. ??The National Kidney Foundation has similarly stated that patients with Vitamin D concentrations <30ng/mL should be considered to be insufficient or deficient. http://OpenCloud.com/nkf-guidelines http://OpenCloud.myGreek/nejm-VitD The [employer]S iSYS Vitamin D Immunoassay detects both 25-OH Vitamin D2 and 25-OH Vitamin D3, but only a total Vitamin D concentration is reported. Blood specimen (specimen) 09/15/2018 9:53 AM EDT 09/15/2018 12:08 PM EDT Narrative Resulting Agency Comment Spec In Lab Tal Eagle MD CHEMISTRY ORDERAB LES Performing Organization Address City/[facility]/ZIP Co de Phone Number [facility] [place] [address] * Urinalysis Microscopic Exam (09/15/2018 9:48 AM [...] Address City/[facility]/ZIP Co de Phone Number [facility] [place] [place] [address] * Calcium Creatinine Ratio, random urine (09/15/2018 9:48 AM EDT) Calcium, Urine 6.5 mg/dL [facility] Creatinine, Urine 117 mg/dL [facility] Calcium / Creatinine Ratio, Urine 0.06 ratio [facility] Urine specimen (specimen) 09/15/2018 9:48 AM EDT 09/15/2018 2:24 PM EDT Narrative Resulting Agency Comment Spec In Lab Tal Eagle MD URINE ORDERABLES Performing Organization Address City/[facility]/ZIP Co de Phone Number [facility] [place] [address] * Magnesium, urine, random (09/15/2018 9:48 AM EDT) Magnesium, Urine 0.84 mmol/L [facility] Urine specimen (specimen) 09/15/2018 9:48 AM EDT 09/15/2018 10:00 AM EDT Narrative Resulting Agency Comment Spec In Lab Tal Eagle MD URINE ORDERABLES Performing Organization Address City/[facility]/ZIP Co de Phone Number [facility] [place] [address] * Phosphorus, urine, random (09/15/2018 9:48 AM EDT) Phosphorus, Urine 71.7 mg/dL [facility] Urine specimen (specimen) 09/15/2018 9:48 AM EDT 09/15/2018 2:24 PM EDT Narrative Resulting Agency Comment Spec In Lab Tal Eagle MD URINE ORDERABLES [facility] [place] [address] * (ABNORMAL) Protein/Creatinine Ratio, urine (09/15/2018 9:48 AM EDT) Creatinine, Urine 117 mg/dL [facility] Protein, Urine 153(H) 0 - 12 mg/dL [facility] Protein / Creatinine Ratio, Urine 1.3 ratio [facility] Urine specimen (specimen) 09/15/2018 9:48 AM EDT 09/15/2018 10:00 AM EDT Narrative Resulting Agency Comment Spec In Lab Tal Eagle MD URINE ORDERABLES Performing Organization Address City/[facility]/ZIP Co de Phone Number [facility] [place] [address] * (ABNORMAL) Urinalysis with reflex Culture (09/15/2018 9:48 AM EDT) Glucose, Urine Dipstick Negative Negative mg/dL [facility] Protein, Urine Dipstick 100(A) Negative mg/dL [facility] [...] C[facility] Leukocytes, Urine Dipstick Negative Negative [facility] Appearance, Urine Dipstick Clear Clear [facility] Specific [place] Urine Automated 1.021 1.002 - 1.030 [facility] Color, Urine Dipstick Yellow Yellow [facility] Reflex to Culture No [facility] Urine specimen obtained by clean catch procedure (specimen) 09/15/2018 9:48 AM EDT 09/15/2018 9:58 AM EDT Narrative Resulting Agency Comment Spec In Lab Tal Eagle MD URINE ORDERABLES Performing Organization Address City/State/[facility] Co de Phone Number [facility] [place] [phone] documented in this encounter Visit Diagnoses Diagnosis Kidney replaced by transplant Vitamin D deficiency Unspecified vitamin D deficiency Type 2 diabetes mellitus with complication, without long-term current use of insulin documented in this encounter Care Teams Exec. Creative Director Relationship Specialty Start Date End Date Urbano Denis DO [address] [place] [address] PCP - General 09/03/12 03/17/22 Ruchi Valles RN Nurse Clinic Transplant Surgery 07/30/15 documented as of this encounter
--- OUTSIDE RECORDS SUMMARY | 2024-05-16 17:25 | XMS_ITS | Encounter Summary ---
Author Organization [facility] [place] [address] Care Team Providers Care Stained Glass Painter Name Role Phone Urbano Denis DO Primary Care Provider [phone] Reason for Visit * Auth/Cert Specialty Diagnoses / Procedures Referred By Humberto flor Referred To Contact Diagnoses Paroxysmal atrial fibrillation Atrial fibrillation with RVR Referral ID Status Reason Start Date Expiration Date Visits Re quested Visits Authorized [id number] 1 1 Encounter Details Date Type Department Care Team (Latest Contact Info) Description 01/31/2019 9:25 AM EDT Laboratory Appointment Lab [address] [place] [address] Kidney replaced by transplant Social [...] AM EST TH Visit (TeleHealth) Cardiology at [address] [address] Byron Brown MD [facility] [place] [address] 07/14/2024 10:00 AM EST Hospital Encounter Non[place] [address] Arrived documented as of this [...] Absolute 8.42(H) 1.70 - 6.10 x10(3)/mc L [facility] Lymph % 14.9 % [facility] Lymphocytes Abs 1.6 0.9 - 3.2 x10(3)/[facility] Monocyte % 7.1 % [facility] Monocyte Abs 0.8 0.3 - 0.9 x10(3)/[facility] Eos % 0.7 % [facility] Eosinophils Abs 0.1 0.0 - 0.4 x10(3)/[facility] Basophil % 0.5 % [facility] Baso Absolute 0.1 0.0 - 0.1 x10(3)/[facility] Immature Gran % 0.30 % [facility] Comment: Immature granulocytes(IG's)percentage and absolute count will include metamyelocytes, myelocytes, and promyelocytes. Blood smears from CBCs yielding IG's will be scanned manually for concordance. If this scan disagrees with the automated IG or if promyelocytes are noted, a manual differential will be performed. Immature Gran Absolute 0.03 0.00 - 0.04 x10(3)/[facility] Blood specimen (specimen) 01/31/2019 9:46 AM EDT 01/31/2019 9:53 AM EDT Narrative Resulting Agency Comment Spec In Lab Tal Eagle MD HEMATOLOGY ORDERA BLES Performing Organization Address City/State/[facility] Co de Phone Number [facility] [place] [address] * (ABNORMAL) Hemogram (01/31/2019 9:46 AM EDT) White Blood Cell 11.0(H) 4.0 - 9.5 x10(3)/[facility] Red Blood Cell 5.39 4.58 - 5.54 x10(6)/[facility] Hemoglobin 17.0(H) 13.7 - 16.5 gm/dL [facility] Hematocrit 49.5(H) 40.5 - 48.5 % [facility] Mean Cell Volume 91.8 82.9 - 93.[address] [facility] Mean Cell Hemoglobin 31.5 27.5 - 32.[address] [facility] Mean Cell Hemoglobin Concentration 34.3 32.0 - 35.7 gm/dL [facility] Platelet 270 145 - 357 x10(3)/mc L [facility] RDW Standard Deviation 45.4(H) 36.0 - 45.[address] [facility] RDW coefficient of variation 13.8 11.4 - 13.8 % [facility] Mean Platelet Volume 10.0 7.6 - 12.[address] [facility] NRBC% auto 0.0 % [facility] NRBC Absolute 0.000 0.000 - 0.000 x10(3)/mc L [facility] Blood specimen (specimen) 01/31/2019 9:46 AM EDT 01/31/2019 9:53 AM EDT Narrative Resulting Agency Comment Spec In Lab Tal Eagle MD HEMATOLOGY ORDERA BLES [facility] [place] [address] * Cholesterol, total (01/31/2019 9:46 AM EDT) Cholesterol, Total 113 mg/dL [facility] Comment: Lower Risk: <200 mg/dL Average Risk: 200-239 mg/dL Higher Risk: >vv=526 mg/dL Lipid Interpretation See Note [facility] Comment: Lipid management should be guided by a patient? s ASCVD risk, goals and preferences. ACC/AHA Guidelines recommend high intensity statin if clinical ASCVD or LDL greater than or equal to 190 mg/dL. [email or web address] [email or web address]/[email or web address]-[email or web address]-Xpkwhahye Adults aged 40-75 with LDL 70-189 mg/dL should have their 10 year ASCVD risk estimated with the ACC/AHA ASCVD risk dredge engineer http://tools.acc.org/TYJUY-Uzap-Ravhgwhko/ Statin should be discussed if risk greater [...] LES Performing Organization Address [facility] Co de Phone Number [facility] [place] [address] * Magnesium (01/31/2019 9:46 AM EDT) Magnesium 0.76 0.69 - 1.07 mmol/L [facility] Blood specimen (specimen) 01/31/2019 9:46 AM EDT 01/31/2019 9:53 AM EDT Narrative Resulting Agency Comment Spec In Lab Tal Eagle MD CHEMISTRY ORDERAB LES Performing Organization Address [facility] Co de Phone Number [facility] [place] [address] * Phosphorus (01/31/2019 9:46 AM EDT) Phosphorus 3.7 2.5 - 4.5 mg/dL [facility] Blood specimen (specimen) 01/31/2019 9:46 AM EDT 01/31/2019 9:53 AM EDT Narrative Resulting Agency Comment Spec In Lab Tal Eagle MD CHEMISTRY ORDERAB LES Performing Organization Address City/[facility] Co de Phone Number [facility] [place] [address] * (ABNORMAL) Uric acid (01/31/2019 9:46 AM EDT) Uric Acid 11.1(H) 3.5 - 8.5 mg/dL [facility] Blood specimen (specimen) 01/31/2019 9:46 AM EDT 01/31/2019 9:53 AM EDT Narrative Resulting Agency Comment Spec In Lab Tal Eagle MD CHEMISTRY ORDERAB LES [facility] [place] [address] * (ABNORMAL) Comprehensive metabolic panel (non-fasting) (01/31/2019 9:46 AM EDT) Glucose 175 65 - 199 mg/dL [facility] Comment:Diabetes: >=200 mg/d L plus symptoms Blood Urea Nitrogen 30(H) 10 - 20 mg/dL [facility] Creatinine 1.99(H) 0.80 - 1.50 mg/dL [facility] Sodium 136 135 - 145 mmol/L [facility] Potassium 4.5 3.5 - 5.0 mmol/L [facility] Comment: Please note: ??Patients with WBC >100,000 may have falsely elevated Potassium levels. ??For accurate Potassium quantification in these patients send serum separator tube (gold top) for subsequent determinations. ??Contact the Clinical Chemistry Laboratory if there are any questions. Chloride 96(L) 98 - 107 mmol/L [facility] Carbon Dioxide 26 22 - 31 mmol/L [facility] Anion Gap 14 5 - 15 mmol/L [facility] Calcium 10.3 8.5 - 10.5 mg/dL [facility] Protein, Total 7.3 6.1 - 8.0 gm/dL [facility] Albumin 4.3 3.2 - 5.2 gm/dL [facility] Aspartate Aminotransferase 19 0 - 39 unit/L [facility] Alanine Aminotransferase 22 0 - 55 unit/L [facility] Alkaline Phosphatase 68 40 - 130 unit/L [facility] Bilirubin, Total 2.8(H) 0.2 - 1.3 mg/dL [facility] Est Glomerular Filtration Rate 33(L) >=60 mL/min/1. 73 m?? [facility] Comment: The eGFR was calculated using the CKD-EPI equation. As with all creatinine based estimates of kidney function, eGFR values calculated with the CKD-EPI equation are not accurate in patients with acute kidney failure, extremes of body mass or the acutely ill. http://Innovari/[facility] eGFR 38(L) >=60 mL/min/1. 73 m?? [facility] Comment: The eGFR was calculated using the CKD-EPI equation. As with all creatinine based estimates of kidney function, eGFR values calculated with the CKD-EPI equation are not accurate in patients with acute kidney failure, extremes of body mass or the acutely ill. http://Innovari/[facility]ONERnkf Blood specimen (specimen) 01/31/2019 9:46 AM EDT 01/31/2019 9:53 AM EDT Narrative Resulting Agency Comment Spec In Lab Tal Eagle MD CHEMISTRY ORDERAB LES [facility] [place] [address] * Tacrolimus level (01/31/2019 9:46 AM EDT) Tacrolimus 6.7 ng/mL [facility] Comment: Trough therapeutic: ??5-15 ng/mL Performed by ultra-performance liquid chromatography tandem mass spectrometry (UPLCMS/MS). This test was developed and its performance characteristics determined by [facility]. It has not been cleared [...] CHEMISTRY ORDERAB LES [facility] [place] [address] documented in this encounter Visit Diagnoses Diagnosis Kidney replaced by transplant documented in this encounter Care Teams Stained Glass Painter Relationship Specialty Start Date End Date Urbano Denis DO [address] [place] [address] PCP - General 09/03/12 03/17/22 Ruchi Valles RN Nurse Clinic Transplant Surgery 07/30/15 documented as of this encounter
--- OUTSIDE RECORDS SUMMARY | 2024-05-16 17:25 | XMS_ITS | Encounter Summary ---
Author Organization [facility] Address [facility] [place] [address] Care Team Providers Care Wire Basket Maker Name Role Phone AdeelUrbano Primary Care Provider [phone] Reason for Visit * Reason Onset Date Comments Medication Refill Medication Refill 07/27/2018 Encounter Details Date Type Department Care Team (Late st Contact Info) Description 07/27/2018 Refill [place] [address] Tal Eagle MD [facility] [place] [address] Social History Tobacco Use Types Packs/Day Years [...] verify a Rx refill request received from [facility] in [place]. Pt was vacationing there previously and had run out of Rx, therefore had to have emergency supply sent to local [place] pharmacy. No longer in [place]. Rx supply was for Mycophenolate 250 mg [...] EST TH Visit (TeleHealth) Cardiology at [address] [phone] Byron Brown MD [facility] [place] [address] 07/14/2024 10:00 AM EST Hospital Encounter Non-[place] [phone] Arrived documented as of this encounter Goals [...] filedocumented in this encounter Care Teams Wire Basket Maker Relationship Specialty Start Date End Date Urbano Denis DO [facility] [address] [facility] [place] [address] PCP - General 09/03/12 03/17/22 Ruchi Valles RN Nurse Clinic Transplant Surgery 07/30/15 documented as of this encounter
--- OUTSIDE RECORDS SUMMARY | 2024-05-16 17:25 | XMS_ITS | Encounter Summary ---
Author Organization [facility] [place] [address] Care Team Providers Care Wheel Of Fortune Dealer Name Role Phone AdeelUrbano boland Primary Care Provider [phone] Reason for Visit * Reason Comments Medication Refill Encounter Details Date Type Department Care Team (Late st Contact Info) Description 11/15/2018 Refill [place] [address] Tal Eagle MD [facility] [place] [address] Social History Tobacco Use Types Packs/Day Years [...] Request from pt pharmacy Pharmacy, 3rd Floor, [place], [place] for: Requested Prescriptions Pending Prescriptions Disp [...] EST TH Visit (TeleHealth) Cardiology at [address] [address] Byron Brown MD [facility] [place] [address] 07/14/2024 10:00 AM EST Hospital Encounter Non[place] [phone] Arrived documented as of this encounter Goals Goal Patient Goal Type Associated Problems Recent Progress Patient-Stated? Author [facility] Medication Compliance and Understanding Patient Facing Action Plan On track( 017 10:41 AM EDT) No Selena Cisneros, [facility] Note: Patient Goal: Clear hepatitis C Timeframe to meet goal: within 12 weeks of therapy documented as of this encounter Visit Diagnoses Not on filedocumented in this encounter Care Teams Wheel Of Fortune Dealer Relationship Specialty Start Date End Date Urbano Denis DO [address] [place] [address] [address] [facility] 1 [place] [address] PCP - General 09/03/12 03/17/22 Hai STANLEY,Ruchi Nurse Clinic Transplant Surgery 07/30/15 documented as of this encounter
--- OUTSIDE RECORDS SUMMARY | 2024-05-16 17:25 | XMS_ITS | Encounter Summary ---
Author Organization [facility] [place] [address] Care Team Providers Care Political Reporter Name Role Phone Adeel, Urbano KIRBY Primary Care Provider [phone] Encounter Details Date Type Department Care Team (Late st Contact Info) Description 01/31/2019 Orders Only [place] [address] Jeremiah Betancur RN Kidney replaced [...] EST TH Visit (TeleHealth) Cardiology at [address] [address] Byron Brown MD [facility] [place] [address] 07/14/2024 10:00 AM EST Hospital Encounter Non-[place] [address] Arrived Pending Results Name Type [...] (Bezet) 492 ms MUSE SYSTEM Calculated P Woodward 49 degrees MUSE SYSTEM Calculated R Woodward -58 degrees MUSE SYSTEM Calculated T Woodward 151 degrees MUSE SYSTEM INTERPRETATION Sinus rhythm with 1st degree A-V block with frequent Premature atrial complexes in a pattern of bigeminy Left axis deviation ST & T wave abnormality, consider anterolateral ischemia Prolonged QT Abnormal ECG When compared with ECG of 31-JAN-2019 16:28, (unconfirmed) No significant change was found Confirmed by MD Jonatan, Guille Almonte ([id number]) on 02/01/2019 3:55:38 PM MUSE SYSTEM 01/31/2019 6:31 PM EDT 02/01/2019 3:55 PM EDT Unknown ECG ORDERABLES MUSE SYSTEM * Tacrolimus level (01/31/2019 9:46 AM EDT) Tacrolimus 6.7 ng/mL [facility] Comment: Trough therapeutic: ??5-15 ng/mL Performed by ultra-performance liquid chromatography tandem mass spectrometry (UPLCMS/MS). This test was developed and its performance characteristics determined by [facility]. It has not been cleared or approved [...] CHEMISTRY ORDERAB LES [facility] [place] [address] * (ABNORMAL) Comprehensive metabolic panel (non-fasting) (01/31/2019 9:46 AM EDT) Glucose 175 65 - 199 mg/dL [facility] Comment:Diabetes: >=200 mg/d L plus symptoms Blood Urea Nitrogen 30(H) 10 - 20 mg/dL [facility] Creatinine 1.99(H) 0.80 - 1.50 mg/dL [facility] Sodium 136 135 - 145 mmol/L [facility] Potassium 4.5 3.5 - 5.0 mmol/L [facility] [...] 15 mmol/L [facility] Calcium 10.3 8.5 - 10.5 mg/dL [facility] Protein, Total 7.3 6.1 - 8.0 gm/dL [facility] Albumin 4.3 3.2 - 5.2 gm/dL [facility] Aspartate Aminotransferase 19 0 - 39 unit/L [facility] Alanine Aminotransferase 22 0 - 55 unit/L [facility] Alkaline Phosphatase 68 40 - 130 unit/L [facility] Bilirubin, Total 2.8(H) 0.2 - 1.3 mg/dL [facility] Est Glomerular Filtration Rate 33(L) >=60 mL/min/1. 73 m?? [facility] Comment: The eGFR was calculated using the CKD-EPI equation. As with all creatinine based estimates of kidney function, eGFR values calculated with the CKD-EPI equation are not accurate in patients with acute kidney failure, extremes of body mass or the acutely ill. http://Mapflow/[facility] NORMANnkf eGFR 38(L) >=60 mL/min/1. 73 m?? [facility] Comment: The eGFR was calculated using the CKD-EPI equation. As with all creatinine based estimates of kidney function, eGFR values calculated with the CKD-EPI equation are not accurate in patients with acute kidney failure, extremes of body mass or the acutely ill. http://Mapflow/[facility] NORMANnkf Blood specimen (specimen) 01/31/2019 9:46 AM EDT 01/31/2019 9:53 AM EDT Narrative Resulting Agency Comment Spec In Lab Tal Eagle MD CHEMISTRY ORDERAB LES [facility] [place] [address] * (ABNORMAL) Uric acid (01/31/2019 9:46 AM EDT) Uric Acid 11.1(H) 3.5 - 8.5 mg/dL [facility] Blood specimen (specimen) 01/31/2019 9:46 AM EDT 01/31/2019 9:53 AM EDT Narrative Resulting Agency Comment Spec In Lab Tal Eagle MD CHEMISTRY ORDERAB LES [facility] [place] [address] * Phosphorus (01/31/2019 9:46 AM EDT) Phosphorus 3.7 2.5 - 4.5 mg/dL [facility] Blood specimen (specimen) 01/31/2019 9:46 AM EDT 01/31/2019 9:53 AM EDT Narrative Resulting Agency Comment Spec In Lab Tal Eagle MD CHEMISTRY ORDERAB LES Performing Organization Address City/[facility]/ZIP Co de Phone Number [facility] [place] [address] * Magnesium (01/31/2019 9:46 AM EDT) Magnesium 0.76 0.69 - 1.07 mmol/L [facility] Blood specimen (specimen) 01/31/2019 9:46 AM EDT 01/31/2019 9:53 AM EDT Narrative Resulting Agency Comment Spec In Lab Tal Eagle MD CHEMISTRY ORDERAB LES Performing Organization Address [facility] Co de Phone Number [facility] [place] [address] * Cholesterol, total (01/31/2019 9:46 AM EDT) Cholesterol, Total 113 mg/dL [facility] Comment: Lower Risk: <200 mg/dL Average Risk: 200-239 mg/dL Higher Risk: >wu=840 mg/dL Lipid Interpretation See Note [facility] Comment: Lipid management should be guided by a patient? s ASCVD risk, goals and preferences. ACC/AHA Guidelines recommend high intensity statin if clinical ASCVD or LDL greater than or equal to 190 mg/dL. http://Decohunturl.com/JVF-FRU-Uczzeoihy Adults aged 40-75 with LDL 70-189 mg/dL should have their 10 year ASCVD risk estimated with the ACC/AHA ASCVD risk drug safety coordinator http://tools.acc.org/AUTQA-Wfvv-Kdjthfebt/ Statin should be discussed if risk greater [...] CHEMISTRY ORDERAB LES [facility] [place] [address] documented in this encounter Visit Diagnoses Diagnosis Kidney replaced by transplant documented in this encounter Care Teams Political Reporter Relationship Specialty Start Date End Date Urbano Denis DO [facility] [address] [place] [address] PCP - General 09/03/12 03/17/22 Ruchi Valles RN Nurse Clinic Transplant Surgery 07/30/15 documented as of this encounter
--- OUTSIDE RECORDS SUMMARY | 2024-05-16 17:25 | XMS_ITS | Encounter Summary ---
Author Organization [facility]ly [facility] [place] [address] Care Team Providers Care Cad Cam Programmer Name Role Phone Adeel, Urbano KIRBY Primary Care Provider [phone] Reason for Visit * Reason Comments Medication Refill Encounter Details Date Type Department Care Team (Late st Contact Info) Description 01/17/2019 [place] [phone] Guy Giraldo MD [facility] [place] [address] Social History Tobacco Use Types Packs/Day Years [...] st Contact Info) Description 06/22/2024 11:00 AM [facility] Visit (TeleHealth) Cardiology at [address] [phone] Byron Brown MD [facility] [place] [address] 07/14/2024 10:00 AM EST Hospital Encounter Non-[place] [phone] Arrived documented as of this encounter Goals [...] on filedocumented in this encounter Care Teams Cad Cam Programmer Relationship Specialty Start Date End Date Urbano Denis DO [address] [place] [address] [address] [place] [address] PCP - General 09/03/12 03/17/22 Ruchi Valles RN Nurse Clinic Transplant Surgery 07/30/15 documented as of this encounter
--- OUTSIDE RECORDS SUMMARY | 2024-05-16 17:26 | XMS_ITS | Encounter Summary ---
Author Organization [facility] [place] [address] Care Team Providers Care [place] Worker Name Role Phone Urbano Denis DO Primary Care Provider [phone] Reason for Visit * Reason Comments Abdominal Pain * Auth/Cert Specialty Diagnoses / Procedures Referred By Humberto flor Referred To Contact Diagnoses Hydronephrosis Referral ID Status Reason Start Date Expiration Date Visits Re quested Visits Authorized [id number] 1 1 Encounter Details Date Type Department Care Team (Latest Contact Info) Description 06/17/2018 3:16 PM EST - 06/17/2018 4:35 PM EST Surgery [place] [address] Edinson Grider III, MD [facility] [place] [address] CYSTO, RETROGRADE, URETEROPYELOGRAPHY (WRVU 2.37) Social History [...] D deficiency ??? 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 [...] or rigors on Thursday and presented to [facility] where he was worked up in [...] and emesis on Thursday prior to the [facility] visit.This spontaneously resolved and he has [...] calculus in the ureter of the LEFT EKUK kidney with evidence of proximal hydroureter and [...] (WRVU 2.37) Operative Findings: 1. B/l orthotopic koi UOs 2. 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 Normal bladder 4. No contrast passed proximally up left koi ureter, unable to advance wire, distal ureter had been previously ligated Hospital Course: Ethel Akins was admitted to the Transplant Surgery service on 06/16/18 with RIGHT abdominal pain. Work up with CT scan and abdominal US was notable for hydronephrosis of left koi ureter with 6x10mm stone. No evidence of sepsis or intraperitoneal process with reassuring imag ing/labs, benign abdominal exam and vital signs within normal limits. 06/17/18 the patient was taken to the OR with urology and retrograde ureteropyelogram confirmed, as noted in op report, that the L koi ureter had been ligated during previous Boari [...] and given to the patient. Patient Instructions [facility] Department of Surgery Discharge Instructions PROCEDURES [...] with the Surgery nurses. The number is [phone]. - During the night or weekends call the [facility] paper goods machine set up operator at [phone] and ask to speak to the surgery resident alternative education teacher for general surgery. Please note: Your surgeon may not be Extractor And Wringer Operator, especially during the night or on weekends, so be ready to describe yourself and your surgery when you call. FOLLOW UP You will have an appointment made with the transplant clinic- you will be contacted- please call with any questions Future Appointments Date Time Provider Department Center 06/18/2018 8:00 AM [facility] ROOM 8 [facility] information via phone/mail in the next week. If you do not hear anything, please call the clinic [phone] to confirm or reschedule. If you need a prior authorization, please call the General Surgery Clinic nurses [phone] for prior authorizations assistance General Instructions Instructions [...] to urinate, please call our office at [phone] before 5PM or [phone] after hours. Call Doctor for: - copious blood or large clots in your urine - you are unable to urinate - severe back or side pain - pain not controlled by oral medications at home - persistent nausea and vomiting - any fever > 101.3F The number for questions is [phone] before 5 PM weekdays and [phone] after 5 PM and weekends. Follow-up Recommendations [...] to urinate, please call our office at [phone] before 5PM or [phone] after hours. Call Doctor for: - copious blood or large clots in your urine - you are unable to urinate - severe back or side pain - pain not controlled by oral medications at home - persistent nausea and vomiting - any fever > 101.3F The number for questions is [phone] before 5 PM weekdays and [phone] after 5 PM and weekends. * Patient Instructions* Jennifer Palmer Joel - 06/17/2018 5:29 PM EST [facility] Department of Surgery Discharge Instructions PROCEDURES [...] with the Surgery nurses. The number is [phone]. - During the night or weekends call the [facility] paper goods machine set up operator at [phone] and ask to speak to the surgery resident alternative education teacher for general surgery. Please note: Your surgeon may not be Extractor And Wringer Operator, especially during the night or on weekends, so be ready to describe yourself and your surgery when you call. FOLLOW UP You will have an appointment made with the transplant clinic- you will be contacted- please call with any questions Future Appointments Date Time Provider Department Center 06/18/2018 8:00 AM [facility] ROOM 8 [facility] information via phone/mail in the next week. If you do not hear anything, please call the clinic [phone] to confirm or reschedule. If you need a prior authorization, please call the General Surgery Clinic nurses [phone] for prior authorizations assistance documented in this [...] Amaro MD - 06/18/2018 1:49 PM EST [facility] Transplant Progress Note Patient Name: Ethel Akins : [id number] MR#: [id number] Admit Date: 06/16/2018 2:45 PM Mr. Akins is hospital day #2 following admission for right lower quadrant pain that radiates to the right testicle. I reviewed Dr. Arredondo's operative report yesterday and the records suggested that Dr. Arredondo ligated the left koi ureter at the patient's Boari flap reconstruction operation that took place in 2015. This was likely to have explained the dilated left koi kidney collecting system and hydroureter. I contacted [...] Intraoperative findings as follows: 1. B/l orthotopic koi UOs 2. 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 Normal bladder 4. No contrast passed proximally up left koi ureter, unable to advance wire, distal ureter [...] RLQ abdominal pain, found to have obstructed koi LEFT ureter with 6x10mm stone 24h/S Reports [...] previously there 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 ?? Transplant kidney: Transplant kidney [...] imaging showing 6x10mm obstructing stone in LEFT koi ureter. He continues to report R>L Abdominal [...] Bah MD - 06/16/2018 6:16 PM EST [facility] Department of Transplant Surgery Inpatient Consult Note Patient Name: Ethel Akins Patient Age: 67 y.o. Birthdate: 1950 Admit date: 06/16/2018 Attending Physician: Ari Lucero MD REQUESTED BY: ED CONSULTATION QUESTION: Obstruction of L koi ureter. CC: RLQ abd pain 67??y.o. male [...] EXTREMITY performed by Jennifer Amaro MD at [facility] OR ??? PRO REIMPLANT URETER, SINGLE URETER Left 05/20/2016 @URETERONEOCYSTOSTOMY ANASTOMOSIS OF SINGLE URETER TO BLADDER performed by Santosh Arredondo MD at [facility] OR ??? PRO REIMPLANT URETER, SINGLE URETER N/A 05/20/2016 @URETERONEOCYSTOSTOMY ANASTOMOSIS OF SINGLE URETER TO BLADDER performed by Jennifer Amaro MD at [facility] OR ??? PRO TOTAL KNEE ARTHROPLASTY Right 11/25/2017 TOTAL KNEE ARTHROPLASTY (WRVU 20.72) performed by Breezy Dale MD at [facility] OR ??? PRO TRANSPLANT, PREP CADAVER RENAL GRAFT N/A 09/16/2015 @PREPARATION CADAVERIC RENAL ALLOGRAFT performed by Franko Larkin MD at [facility] OR ??? PRO TRANSPLANTATION OF KIDNEY N/A 09/16/2015 @KIDNEY TRANSPLANT, WITHOUT RECIPIENT NEPHRECTOMY performed by Franko Larkin MD at [facility] OR Family History: Family History Problem Relation [...] on CT is a 6x10mm obstructing L koi ureteral stone with new hydronephrosis. His appendix [...] or rigors on Thursday and presented to [facility] where he was worked up in their emergency department and received aRUQ US that did not demonstrate evidence of acute cholecystitis or a dilated biliary system. He wasdischarged home the same day and continued to experience low level gnawing pain in the RLQ that was in a 4-5 range. He had one episode of nausea and emesis on Thursday prior to the [facility] visit. This spontaneously resolved and he [...] calculus in the ureter of the LEFT EKUK kidney with evidence of proximal hydroureter and hydronephrosis. There is no gas in the collecting system proximal to this obstruction. Review of Dr. Arredondo's 05/2016 operative report indicates that the left koi ureter was ligated at that procedure which [...] need for therapy of the dilated left koi kidney tract in the setting of the left koi kidney ureter ligation in 2016. This is [...] home doses. Will verify this with the post-learning coordinator team. Tacrolimus trough level pending and [...] Patient states that Thursday he presented to [facility] with what he thought was [...] this before. Had 2x cup coffee and spanish muffin today, but states that appetite has [...] previously there 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 ?? Transplant kidney: Transplant kidney [...] mm renal calculous and new hydronephrosis in koi kidney. He was seen by transplant medicine [...] residual kidney stone and obstruction in his koi kidney on the left. Because of the tenuous nature of his transplant the transplant service would like to admit him. documented in this encounter Miscellaneous Notes * Op Note - Edinson Grider III, MD - 06/17/2018 3:45 PM EST [facility] Operative Note Patient Name: Ethel Akins : [id number] MR#: [id number] Case Date: 06/17/2018 Surgeon: Surgeon(s) and Role: * Edinson Grider III, MD - Primary * Shin Elam MD - Resident-Surgeon Chief Preoperative diagnosis: Hydronephrosis Postoperative diagnosis: Hydronephrosis Procedure(s) (LRB): CYSTO, RETROGRADE, URETEROPYELOGRAPHY (WRVU 2.37) (Left) Findings: 1. B/l orthotopic koi UOs 2. 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 Normal bladder 4. No contrast passed proximally up left koi ureter, unable to advance wire, distal ureter [...] bladder. 360 degree cystoscopy revealed b/l orthotopic koi UOs and a widely patient reimplant ureter/Boari [...] an incidental finding of a hydronephrotic left koi kidney with a 6 x 10 mid [...] minimal out of pocket co-pays. Preferred Pharmacy: [facility]; mails prescriptions to pt's home. Primary Care Provider: Urbano Denis DO [phone] Patient/Caregiver Goals of Treatment: Effective pain management; effective stent placement with lessoning of hydronephrosis. Potential Needs for Transition of Care: Rehab/SNF: no Home Health: no DME: Owns a cane, fww. Dialysis: no Community Resources: None offered. Transportation: Pt drove himself to [facility] yesterday; car here; he plans to drive himself home. Anticipated Barriers to Discharge/Special Considerations: None. Assessment: Pt admitted from the ED after complaining of right abdominal pain. CT of abdomen showed, normal left lower quadrant transplant kidney but a 6 x 10 mm obstructing stone in the mid to distal ureter with marketed hydronephrosis of the left koi kidney. Plan: Pt going to OR today for placement of left ureteral stent. [facility]. Pt does not need any home services at time of interview. A member of the Care Management team will continue to monitor progress, follow for continuity of care and assist with transition of care planning. Giovanna Haro RN Pager: [phone] * Consult Note - Tal Chen MD [...] ureter with marketed hydronephrosis of the left koi kidney. Urology was consulted for obstructing ureteral stone of koi left kidney in the setting of immunosuppression [...] EXTREMITY performed by Jennifer Amaro MD at [facility] OR ??? PRO REIMPLANT URETER, SINGLE URETER Left 05/20/2016 @URETERONEOCYSTOSTOMY ANASTOMOSIS OF SINGLE URETER TO BLADDER performed by Santosh Arredondo MD at [facility] OR ??? PRO REIMPLANT URETER, SINGLE URETER N/A 05/20/2016 @URETERONEOCYSTOSTOMY ANASTOMOSIS OF SINGLE URETER TO BLADDER performed by Jennifer Amaro MD at [facility] OR ??? PRO TOTAL KNEE ARTHROPLASTY Right 11/25/2017 TOTAL KNEE ARTHROPLASTY (WRVU 20.72) performed by Breezy Dale MD at [facility] OR ??? PRO TRANSPLANT, PREP CADAVER RENAL GRAFT N/A 09/16/2015 @PREPARATION CADAVERIC RENAL ALLOGRAFT performed by Franko Larkin MD at [facility] OR ??? PRO TRANSPLANTATION OF KIDNEY N/A 09/16/2015 @KIDNEY TRANSPLANT, WITHOUT RECIPIENT NEPHRECTOMY performed by Franko Larkin MD at [facility] No current facility-administered medications on file [...] previously there 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 ?? Transplant kidney: Transplant kidney [...] an incidental finding of a hydronephrotic left koi kidney with a 6 x 10 mid [...] However, the patient has an obstructed left koi kidney and is on immunosuppression.Therefore, we would [...] feels that ureteral stent placement for left koi kidney decompression isindicated at this time give [...] Chen MD, MPH Urology, PGY-2 Consult Pager #[phone] 06/17/2018 * Plan of Care - Ozzy [...] Appropriate) 06/17/18 0403 Interdisciplinary Rounds/Family Conf Participants watch case polisher;physician;pharmacy * Consult Note - Tal Chen MD [...] ureter with marketed hydronephrosis of the left koi kidney. Urology was consulted for obstructing ureteral stone of koi left kidney in the setting of immunosuppression [...] FISTULA CREATION, DIRECT HEMODIALYSIS, ANY SITE, EG SAHWINI FISTULA UPPER EXTREMITY performed by Jennifer Amaro MD at [facility] OR ??? PRO REIMPLANT URETER, SINGLE URETER Left 05/20/2016 @URETERONEOCYSTOSTOMY ANASTOMOSIS OF SINGLE URETER TO BLADDER performed by Santosh Arredondo MD at [facility] ??? PRO REIMPLANT URETER, SINGLE URETER N/A 05/20/2016 @URETERONEOCYSTOSTOMY ANASTOMOSIS OF SINGLE URETER TO BLADDER performed by Jennifer Amaro MD at [facility] OR ??? PRO TOTAL KNEE ARTHROPLASTY Right 11/25/2017 TOTAL KNEE ARTHROPLASTY (WRVU 20.72) performed by Breezy Dale MD at [facility] OR ??? PRO TRANSPLANT, PREP CADAVER RENAL GRAFT N/A 09/16/2015 @PREPARATION CADAVERIC RENAL ALLOGRAFT performed by Franko Larkin MD at [facility] ??? PRO TRANSPLANTATION OF KIDNEY N/A 09/16/2015 @KIDNEY TRANSPLANT, WITHOUT RECIPIENT NEPHRECTOMY performed by Franko Larkin MD at [facility] No current facility-administered medications on file [...] previously there 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 ?? Transplant kidney: Transplant kidney [...] an incidental finding of a hydronephrotic left koi kidney with a 6 x 10 mid [...] However, the patient has an obstructed left koi kidney and is on immunosuppression.Therefore, we would [...] Chen MD, MPH Urology, PGY-2 Consult Pager #[phone] 06/16/2018 Associated attestation - Fermin Whitney MD - 06/18/2018 7:33 AM EST I have seen the patient and reviewed the resident's above history and I agree with the details as written. The assessment and plan were formulated in discussion with me and I agree with them as documented. In discussion with Dr. Amaro, it sounds like his left koi ureter was ligated during repair ofhis necrotic [...] EST TH Visit (TeleHealth) Cardiology at [address] [phone] Byron Brown MD [facility] [place] [address] 07/14/2024 10:00 AM EST Hospital Encounter Non-[place] [id number] Arrived documented as of this encounter Goals [...] AM EST) HCV Viral Load <12 IU/mL [facility] HCV Viral Load Result: <12 IU/mL (Target Not Detected) Indication for Study: Hepatitis C Infection Analysis: The [employer] RealTime HCV assay is an in vitro reverse ultrasonic seaming machine operator polymerase chain reaction (RT-PCR)for the quantitation of hepatitis C viral (HCV) RNA in human serum or plasma (EDTA) from HCV-infected individuals. Sample: plasma (0.7 mL minimum volume) Method: Sparks RealTime HCV Assay Linear Range: 12 IU/mL - 100,000,000IU/mL Note: The [employer] RealTime HCV Assay has been approved by the U.S. Food and Drug Administration. [facility] Comment: [VERIFIED DATE]06.23.18 Verified By:Nella Evans (Electronic Signature) Blood specimen (specimen) 06/18/2018 11:07 AM EST 06/21/2018 11:26 AM EST Narrative Resulting Agency Comment Spec In Lab Jennifer JENNINGS [facility] [place] [address] * US Scrotum (06/18/2018 8:45 AM EST) [...] 09:31 am) PATIENT INFO: ID #: ? [id number] ?: ??[birth year] (67 yrs) Name: ? ETHEL Patricia AKINS ?Visit Date: 06/18/2018 08:42 am PERFORMED BY: Performed By: ? Osmar Dowd RDMS Attending: ?Kristen GERBER, Valencia Almonte Resident: ? Patricia Malik DO Referred By: ?JENNIFER AMARO Location: ? [place] SERVICE(S) PROVIDED: ??[facility] - Scrotum and Contents with Limited Vascular ?[id number], 43392 ??evaluation - [id number] INDICATIONS: ??RLQ and scrotal pain RIGHT TESTICLE: [...] 06/18/2018 09:31 am) PATIENT INFO: ID #: [id number] : [birth year] (67 yrs) Name: ETHEL AKINS Visit Date: 06/18/2018 08:42 am PERFORMED BY: Performed By: Osmar Dowd RDMS Attending: Valencia Carson MD Resident: Patricia Malik DO Referred By: JENNIFER AMARO Location: [place] SERVICE(S) PROVIDED: [facility] - Scrotum and Contents with Limited Vascular 23091, [id number] evaluation - [id number] INDICATIONS: RLQ and scrotal pain RIGHT TESTICLE: [...] 5:53 AM EST) Neutrophil % 61.9 % [facility] Neutrophil Absolute 4.45 1.70 - 6.10 x10(3)/[facility] Lymph % 23.8 % [facility] Lymphocytes Abs 1.7 0.9 - 3.2 x10(3)/[facility] Monocyte % 8.4 % [facility] Monocyte Abs 0.6 0.3 - 0.9 x10(3)/[facility] Eos % 4.5 % [facility] Eosinophils Abs 0.3 0.0 - 0.4 x10(3)/[facility]ORY Basophil % 1.0 % [facility] Baso Absolute 0.1 0.0 - 0.1 x10(3)/[facility] Immature Gran % 0.40 % [facility] Comment: Immature granulocytes(IG's)percentage and absolute count will include metamyelocytes, myelocytes, and promyelocytes. Blood smears from CBCs yielding IG's will be scanned manually for concordance. If this scan disagrees with the automated IG or if promyelocytes are noted, a manual differential will be performed. Immature Gran Absolute 0.03 0.00 - 0.04 x10(3)/[facility] Blood specimen (specimen) 06/18/2018 5:53 AM EST 06/18/2018 6:13 AM EST Narrative Resulting Agency Comment Spec In Lab Jennifer Palmer MD HEMATOLOGY OR DERABLES [facility] [place] [address] * Hemogram (06/18/2018 5:53 AM EST) White Blood Cell 7.2 4.0 - 9.5 x10(3)/[facility] Red Blood Cell 5.13 4.58 - 5.54 x10(6)/[facility] Hemoglobin 15.6 13.7 - 16.5 gm/dL [facility] Hematocrit 45.5 40.5 - 48.5 % [facility] Mean Cell Volume 88.7 82.9 - 93.1 fL [facility] Mean Cell Hemoglobin 30.4 27.5 - 32.1 pg [facility] Mean Cell Hemoglobin Concentration 34.3 32.0 - 35.7 gm/dL [facility] Platelet 259 145 - 357 x10(3)/[facility] RDW Standard Deviation 42.3 36.0 - 45.0 [facility] RDW coefficient of variation 13.0 11.4 - 13.8 % [facility] Mean Platelet Volume 9.8 7.6 - 12.9 fL [facility] NRBC% auto 0.0 % [facility] NRBC Absolute 0.000 0.000 - 0.000 x10(3)/[facility] Blood specimen (specimen) 06/18/2018 5:53 AM EST 06/18/2018 6:13 AM EST Narrative Resulting Agency Comment Spec In Lab Jennifer Palmer MD HEMATOLOGY OR DERABLES [facility] [place] [address] * Phosphorus (06/18/2018 5:53 AM EST) Phosphorus 3.3 2.5 - 4.5 mg/dL [facility] Blood specimen (specimen) 06/18/2018 5:53 AM EST 06/18/2018 6:13 AM EST Narrative Resulting Agency Comment Spec In Lab Jennifer Amaro MD CHEMISTRY ORDE DICK Performing Organization Address [facility] Co de Phone Number [facility] [place] [address] * Magnesium (06/18/2018 5:53 AM EST) Pathologist [facility] Magnesium 0.72 0.69 - 1.07 mmol/L [facility] Blood specimen (specimen) 06/18/2018 5:53 AM EST 06/18/2018 6:13 AM EST Narrative Resulting Agency Comment Spec In Lab Jennifer Amaro MD CHEMISTRY ORDE DICK Performing Organization Address [facility] Co de Phone Number [facility] [place] [address] * (ABNORMAL) Comprehensive metabolic panel (non-fasting) (06/18/2018 5:53 AM EST) Pathologist [facility] Glucose 113 65 - 199 mg/dL [facility] [...] - 15 mmol/L [facility] Calcium 8.8 8.5 - 10.5 mg/dL [facility] Protein, Total 6.4 6.1 - 8.0 gm/dL [facility] Albumin 3.5 3.2 - 5.2 gm/dL [facility] Aspartate Aminotransferase 14 0 - 39 unit/L [facility] Alanine Aminotransferase 14 0 - 55 unit/L [facility] Alkaline Phosphatase 61 40 - 120 unit/L [facility] Bilirubin, Total 2.7(H) 0.2 - 1.3 mg/dL [facility] Est Glomerular Filtration Rate 54(L) >=60 mL/min/1. 73 m?? [facility] Comment: The eGFR was calculated using the CKD-EPI equation. As with all creatinine based estimates of kidney function, eGFR values calculated with the CKD-EPI equation are not accurate in patients with acute kidney failure, extremes of body mass or the acutely ill. [email or web address]/DHMCnkf eGFR 62 >=60 mL/min/1. 73 m?? [facility] Comment: The eGFR was calculated using the CKD-EPI equation. As with all creatinine based estimates of kidney function, eGFR values calculated with the CKD-EPI equation are not accurate in patients with acute kidney failure, extremes of body mass or the acutely ill. [email or web address] Blood specimen (specimen) 06/18/2018 5:53 AM EST 06/18/2018 6:13 AM EST Narrative Resulting Agency Comment Spec In Lab Jennifer Amaro MD CHEMISTRY ROCHELLE JENNINGS [facility] Organization Address City/State/ZIP Co de Phone Number [facility] [place] [address] * XR Fluoro No Rad <1Hr - OR Use (06/17/2018 4:05 PM EST) Narrative [facility] RAD - 06/17/2018 4:05 PM EST This order does not need a radiologist interpretation. ?? Jennifer Amaro MD IMG FLUORO ORD ERABLES Performing Organization Address City/[facility]/ZIP Co de Phone Number [place], [place] * ABORH Recheck Status (06/17/2018 1:51 PM EST) ABORH Type Recheck Completed [facility] Blood specimen (specimen) 06/17/2018 1:51 PM EST 06/17/2018 3:10 PM EST Narrative Resulting Agency Comment Spec In Lab Jennifer Amaro MD BLOOD BANK LAB ORDERABLES Performing Organization Address [facility] Co de Phone Number [facility] [place] [address] * Antibody screen (06/17/2018 1:51 PM EST) Ab Screen Interp Negative [facility] Expires at [id number] on: 06/20/2018 [facility] Blood specimen (specimen) 06/17/2018 1:51 PM EST 06/17/2018 3:10 PM EST Narrative Resulting Agency Comment Spec In Lab Jennifer Amaro MD BLOOD BANK LAB ORDERABLES Performing Organization Address City/[facility] Co de Phone Number [facility] [place] [address] * ABO/Rh Typing (06/17/2018 1:51 PM EST) ABORH Type AB Pos [facility] Blood specimen (specimen) 06/17/2018 1:51 PM EST 06/17/2018 3:10 PM EST Narrative Resulting Agency Comment Spec In Lab Jennifer Amaro MD BLOOD BANK LAB ORDERABLES Performing Organization Address City/[facility]/ZIP Co de Phone Number [facility] [place] [address] * Tacrolimus level (06/17/2018 8:50 AM EST) Tacrolimus 5.2 ng/mL [facility] Comment: Trough therapeutic: ??5-15 ng/mL Performed by ultra-performance liquid chromatography tandem mass spectrometry (UPLCMS/MS). This test was developed and its performance characteristics determined by [facility]. It has not been cleared [...] Lucero MD CHEMISTRY ORDERABLES Performing Organization Address [facility] Co de Phone Number [facility] [place] [address] * Lipase (06/17/2018 6:19 AM EST) Lipase 25 0 - 60 unit/L [facility] Blood specimen (specimen) 06/17/2018 6:19 AM EST 06/17/2018 6:40 AM EST Narrative Resulting Agency Comment Spec In Lab Jennifer Amaro MD CHEMISTRY ORDTiny JENNINGS Performing Organization Address [facility] Co de Phone Number [facility] [place] [address] * Amylase (06/17/2018 6:19 AM EST) Amylase 29 28 - 100 unit/L [facility] Blood specimen (specimen) 06/17/2018 6:19 AM EST 06/17/2018 6:39 AM EST Narrative Resulting Agency Comment Spec In Lab Jennifer Amaro MD CHEMISTRY ORDTiny JENNINGS Performing Organization Address City/[facility]/ZIP Co de Phone Number [facility] [place] [address] * Phosphorus (06/17/2018 6:19 AM EST) Pathologist [facility] Phosphorus 2.8 2.5 - 4.5 mg/dL [facility] Blood specimen (specimen) 06/17/2018 6:19 AM EST 06/17/2018 6:39 AM EST Narrative Resulting Agency Comment Spec In Lab Jennifer Amaro MD CHEMISTRY ORDE DICK Performing Organization Address [facility]/ZIP Co de Phone Number [facility] [place] [address] * Magnesium (06/17/2018 6:19 AM EST) Pathologist [facility] Magnesium 0.70 0.69 - 1.07 mmol/L [facility] Blood specimen (specimen) 06/17/2018 6:19 AM EST 06/17/2018 6:39 AM EST Narrative Resulting Agency Comment Spec In Lab Jennifer Amaro MD CHEMISTRY ORDE DICK Performing Organization Address [facility]/ZIP Co de Phone Number [facility] [place] [address] * (ABNORMAL) Comprehensive metabolic panel (non-fasting) (06/17/2018 6:19 AM EST) Pathologist [facility] Glucose 108 65 - 199 mg/dL [facility] [...] - 15 mmol/L [facility] Calcium 8.8 8.5 - 10.5 mg/dL [facility] Protein, Total 6.5 6.1 - 8.0 gm/dL [facility] Albumin 3.4 3.2 - 5.2 gm/dL [facility] Aspartate Aminotransferase 16 0 - 39 unit/L [facility] Alanine Aminotransferase 17 0 - 55 unit/L [facility] Alkaline Phosphatase 64 40 - 120 unit/L [facility] Bilirubin, Total 2.8(H) 0.2 - 1.3 mg/dL [facility] Est Glomerular Filtration Rate 61 >=60 mL/min/1. 73 m?? [facility] Comment: The eGFR was calculated using the CKD-EPI equation. As with all creatinine based estimates of kidney function, eGFR values calculated with the CKD-EPI equation are not accurate in patients with acute kidney failure, extremes of body mass or the acutely ill. [email or web address]SAnkf eGFR 71 >=60 mL/min/1. 73 m?? [facility] Comment: The eGFR was calculated using the CKD-EPI equation. As with all creatinine based estimates of kidney function, eGFR values calculated with the CKD-EPI equation are not accurate in patients with acute kidney failure, extremes of body mass or the acutely ill. [email or web address] Blood specimen (specimen) 06/17/2018 6:19 AM EST 06/17/2018 6:39 AM EST Narrative Resulting Agency Comment Spec In Lab Jennifer Amaro MD CHEMISTRY ROCHELLE JENNINGS [facility] [place] [address] * Hemogram (06/17/2018 6:19 AM EST) White Blood Cell 7.6 4.0 - 9.5 x10(3)/[facility] Red Blood Cell 5.13 4.58 - 5.54 x10(6)/[facility] Hemoglobin 15.9 13.7 - 16.5 gm/dL [facility] Hematocrit 45.6 40.5 - 48.5 % [facility] Mean Cell Volume 88.9 82.9 - 93.1 fL [facility] Mean Cell Hemoglobin 31.0 27.5 - 32.1 pg [facility] Mean Cell Hemoglobin Concentration 34.9 32.0 - 35.7 gm/dL [facility] Platelet 274 145 - 357 x10(3)/[facility] RDW Standard Deviation 42.4 36.0 - 45.0 [facility] RDW coefficient of variation 13.0 11.4 - 13.8 % [facility] Mean Platelet Volume 9.8 7.6 - 12.9 [facility] NRBC% auto 0.0 % [facility] NRBC Absolute 0.000 0.000 - 0.000 x10(3)/[facility] Blood specimen (specimen) 06/17/2018 6:19 AM EST 06/17/2018 6:40 AM EST Narrative Resulting Agency Comment Spec In Lab Jennifer Amaro MD HEMATOLOGY ORD ERABLES [facility] [place] [place] [address] * Lipase (06/16/2018 9:54 PM EST) Lipase 44 0 - 60 unit/L [facility] Blood specimen (specimen) 06/16/2018 9:54 PM EST 06/16/2018 10:03 PM EST Narrative Resulting Agency Comment Spec In Lab Ari Lucero MD CHEMISTRY ORDERABLES Performing Organization Address City/[facility]/ZIP Co de Phone Number [facility] [place] [address] * Phosphorus (06/16/2018 9:54 PM EST) Phosphorus 2.9 2.5 - 4.5 mg/dL [facility] Blood specimen (specimen) 06/16/2018 9:54 PM EST 06/16/2018 10:03 PM EST Narrative Resulting Agency Comment Spec In Lab Ari Lucero MD CHEMISTRY ORDERABLES Performing Organization Address [facility] Co de Phone Number [facility] [place] [address] * (ABNORMAL) Magnesium (06/16/2018 9:54 PM EST) Magnesium 0.61(L) 0.69 - 1.07 mmol/L [facility] Blood specimen (specimen) 06/16/2018 9:54 PM EST 06/16/2018 10:03 PM EST Narrative Resulting Agency Comment Spec In Lab Ari Lucero MD CHEMISTRY ORDERABLES Performing Organization Address City/[facility] Co de Phone Number [facility] [place] [address] * Amylase (06/16/2018 9:54 PM EST) Amylase 34 28 - 100 unit/L [facility] Blood specimen (specimen) 06/16/2018 9:54 PM EST 06/16/2018 10:03 PM EST Narrative Resulting Agency Comment Spec In Lab Ari Lucero MD CHEMISTRY ORDERABLES Performing Organization Address City/[facility]/ZIP Co de Phone Number [facility] [place] [address] * Hemogram (06/16/2018 9:54 PM EST) White Blood Cell 9.2 4.0 - 9.5 x10(3)/[facility] Red Blood Cell 5.25 4.58 - 5.54 x10(6)/[facility] Hemoglobin 15.7 13.7 - 16.5 gm/dL [facility] Hematocrit 44.8 40.5 - 48.5 % [facility] Mean Cell Volume 85.3 82.9 - 93.1 [facility] Mean Cell Hemoglobin 29.9 27.5 - 32.1 pg [facility] Mean Cell Hemoglobin Concentration 35.0 32.0 - 35.7 gm/dL [facility] Platelet 270 145 - 357 x10(3)/[facility] RDW Standard Deviation 39.4 36.0 - 45.0 [facility] RDW coefficient of variation 12.9 11.4 - 13.8 % [facility] Mean Platelet Volume 9.5 7.6 - 12.9 [facility] NRBC% auto 0.0 % [facility] NRBC Absolute 0.000 0.000 - 0.000 x10(3)/[facility] Blood specimen (specimen) 06/16/2018 9:54 PM EST 06/16/2018 10:03 PM EST Narrative Resulting Agency Comment Spec In Lab Ari Lucero MD HEMATOLOGY ORDERABLE S Performing Organization Address City/State/[facility] Co de Phone Number [facility] [place] [address] * (ABNORMAL) Comprehensive metabolic panel (non-fasting) (06/16/2018 9:54 PM EST) Glucose 99 65 - 199 mg/dL [facility] Comment:Diabetes: >=200 mg/d L plus symptoms Blood Urea Nitrogen 14 10 - 20 mg/dL [facility] Creatinine 1.12 0.80 - 1.50 mg/dL [facility] [...] 10.5 mg/dL [facility] Protein, Total 6.8 6.1 - 8.0 gm/dL [facility] Albumin 3.6 3.2 - 5.2 gm/dL [facility] Aspartate Aminotransferase 17 0 - 39 unit/L [facility] Alanine Aminotransferase 16 0 - 55 unit/L [facility] Alkaline Phosphatase 65 40 - 120 unit/L [facility] Bilirubin, Total 2.3(H) 0.2 - 1.3 mg/dL [facility] Est Glomerular Filtration Rate 67 >=60 mL/min/1. 73 m?? [facility] Comment: The eGFR was calculated using the CKD-EPI equation. As with all creatinine based estimates of kidney function, eGFR values calculated with the CKD-EPI equation are not accurate in patients with acute kidney failure, extremes of body mass or the acutely ill. [email or web address]SAnkf eGFR 77 >=60 mL/min/1. 73 m?? [facility] Comment: The eGFR was calculated using the CKD-EPI equation. As with all creatinine based estimates of kidney function, eGFR values calculated with the CKD-EPI equation are not accurate in patients with acute kidney failure, extremes of body mass or the acutely ill. [email or web address] Blood specimen (specimen) 06/16/2018 9:54 PM EST 06/16/2018 10:03 PM EST Narrative Resulting Agency Comment Spec In Lab Ari Lucero MD CHEMISTRY ORDERABLES Performing Organization Address City/[facility]/ZIP Co de Phone Number [facility] [place] [address] * Blood culture (06/16/2018 6:51 PM EST) Blood Culture No growth at 5 days. [facility] Blood specimen (specimen) 06/16/2018 6:51 PM EST 06/16/2018 7:55 PM EST Comment:RH Narrative Resulting Agency Comment Spec In Lab Ari Lucero MD MICROBIOLOGY - BLOOD ORDERABLES Performing Organization Address [facility] Co de Phone Number [facility] [place] [address] * Blood culture (06/16/2018 6:35 PM EST) Blood Culture No growth at 5 days. [facility] Blood specimen (specimen) 06/16/2018 6:35 PM EST 06/16/2018 7:50 PM EST Comment:RAC Narrative Resulting Agency Comment Spec In Lab Ari Lucero MD MICROBIOLOGY - BLOOD ORDERABLES Performing Organization Address [facility] Co de Phone Number [facility] [place] [address] * Urinalysis Microscopic Exam (06/16/2018 6:33 PM EST) RBC, Urine 2 0 - 3 /HPF [facility] WBC, Urine <1 0 - 3 /HPF [facility] Urine specimen obtained by clean catch procedure (specimen) 06/16/2018 6:33 PM EST 06/16/2018 7:10 PM EST Narrative Resulting Agency Comment Spec In Lab Giovanna Arriola MD URINE ORDERABLES Performing Organization Address City/[facility]/ZIP Co de Phone Number [facility] [place] [address] * Urine Hold (06/16/2018 6:33 PM EST) Hold, Urine Sample in lab. [facility] Urine specimen (specimen) Urine / Unknown 06/16/2018 6:33 PM EST 06/16/2018 7:11 PM EST Giovanna Arriola MD URINE ORDERABLES Performing Organization Address City/[facility]/ZIP Co de Phone Number [facility] [place] [address] * (ABNORMAL) Urine culture Clean Catch Urine (06/16/2018 6:33 PM EST) Pathologist [facility] Urine Culture 1,000-9,000 cfu/ml Gram Positive organisms , probable contaminant(A ) [facility] Urine specimen obtained by clean catch procedure (specimen) 06/16/2018 6:33 PM EST 06/16/2018 7:48 PM EST Narrative Resulting Agency Comment Spec In Lab Ari Lucero MD MICROBIOLOGY - GENER AL ORDERABLES Performing Organization Address City/[facility]/ZIP Co de Phone Number [facility] [place] [address] * (ABNORMAL) Urinalysis with reflex Culture (06/16/2018 [...] Dipstick Clear Clear [facility] Specific Odon Urine Automated 1.010 1.002 - 1.030 [facility] Color, Urine Dipstick Straw Yellow [facility] Reflex to Culture No [facility] Urine specimen obtained by clean catch procedure (specimen) 06/16/2018 6:33 PM EST 06/16/2018 7:10 PM EST Narrative Resulting Agency Comment Spec In Lab Ari Lucero MD URINE ORDERABLES Performing Organization Address City/State/[facility] Co de Phone Number [facility] [place] [phone] * CT Abdomen & Pelvis wo Contrast [...] previously there 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 Transplant kidney: Transplant kidney noted [...] Osseous structures: No suspicious lesions. Procedure Note aTl Grimes MD - 06/16/2018 EXAMINATION: CT ABDOMEN [...] previously there is severe atrophy of the koi LEFTkidney.. Transplant kidney: Transplant kidney noted in [...] 04:48 pm) PATIENT INFO: ID #: ? [id number] ?: ??[birth year] (67 yrs) Name: ? ETHEL AKINS ?Visit Date: 06/16/2018 04:37 pm PERFORMED BY: Performed By: ? Nicole Thompson RDMS Attending: ?Esa GERBER, Joseph Verduzco Resident: ? Patricia Malik DO Referred By: ?NICK MENDES Location: ? [place] SERVICE(S) PROVIDED: ??UABDLIM - Abdominal Limited Survey Single ? [id number] ??Organ or Quadrant - [id number] INDICATIONS: ??RUQ pain COMPARISON: Prior CT: 06/12/18. [...] 06/16/2018 04:48 pm) PATIENT INFO: ID #: [id number] : [birth year] (67 yrs) Name: ETHEL AKINS Visit Date: 06/16/2018 04:37 pm PERFORMED BY: Performed By: Nicole Thompson RDMS Attending: Joseph See MD Resident: Patricia Malik DO Referred By: NICK MENDES Location: [place] SERVICE(S) PROVIDED: UABDLIM - Abdominal Limited Survey Single 08711 Organ or Quadrant - [id number] INDICATIONS: RUQ pain COMPARISON: Prior CT: 06/12/18. [...] PM EST) Gold Hold Sample in lab. [facility] Blood specimen (specimen) Venous Draw / Unknown 06/16/2018 4:05 PM EST 06/16/2018 4:20 PM EST Giovanna Arriola MD CHEMISTRY ORDERAB LES Performing Organization Address City/[facility]/ZIP Co de Phone Number [facility] [place] [address] * Blue Tube HOLD (06/16/2018 4:05 PM EST) [facility] Blue Hold Sample in lab. [facility] Blood specimen (specimen) Venous Draw / Unknown 06/16/2018 4:05 PM EST 06/16/2018 4:20 PM EST Giovanna Arriola MD HEMATOLOGY ORDERA BLES Performing Organization Address City/[facility]/ZIP Co de Phone Number [facility] [place] [address] * Differential, Automated (06/16/2018 4:05 PM EST) Neutrophil % 63.5 % [facility] Neutrophil Absolute 4.68 1.70 - 6.10 x10(3)/[facility] Lymph % 24.5 % [facility] Lymphocytes Abs 1.8 0.9 - 3.2 x10(3)/[facility] Monocyte % 7.3 % [facility] Monocyte Abs 0.5 0.3 - 0.9 x10(3)/[facility] Eos % 3.3 % [facility] Eosinophils Abs 0.2 0.0 - 0.4 x10(3)/[facility] Basophil % 1.0 % [facility] Baso Absolute 0.1 0.0 - 0.1 x10(3)/[facility] Immature Gran % 0.40 % [facility] Comment: Immature granulocytes(IG's)percentage and absolute count will include metamyelocytes, myelocytes, and promyelocytes. Blood smears from CBCs yielding IG's will be scanned manually for concordance. If this scan disagrees with the automated IG or if promyelocytes are noted, a manual differential will be performed. Immature Gran Absolute 0.03 0.00 - 0.04 x10(3)/[facility] Blood specimen (specimen) 06/16/2018 4:05 PM EST 06/16/2018 4:20 PM EST Narrative Resulting Agency Comment Spec In Lab Giovanna Arriola MD HEMATOLOGY ORDERA BLES Performing Organization Address City/State/[facility] Co de Phone Number [facility] [place] [address] * Hemogram (06/16/2018 4:05 PM EST) White Blood Cell 7.4 4.0 - 9.5 x10(3)/[facility] Red Blood Cell 5.45 4.58 - 5.54 x10(6)/[facility] Hemoglobin 16.5 13.7 - 16.5 gm/dL [facility] Hematocrit 47.0 40.5 - 48.5 % [facility] Mean Cell Volume 86.2 82.9 - 93.1 fL [facility] Mean Cell Hemoglobin 30.3 27.5 - 32.1 pg [facility] Mean Cell Hemoglobin Concentration 35.1 32.0 - 35.7 gm/dL [facility] Platelet 278 145 - 357 x10(3)/[facility] RDW Standard Deviation 40.4 36.0 - 45.0 fL [facility] RDW coefficient of variation 13.1 11.4 - 13.8 % [facility] Mean Platelet Volume 9.7 7.6 - 12.9 fL [facility] NRBC% auto 0.0 % [facility] NRBC Absolute 0.000 0.000 - 0.000 x10(3)/mcL [facility] Blood specimen (specimen) 06/16/2018 4:05 PM EST 06/16/2018 4:20 PM EST Narrative Resulting Agency Comment Spec In Lab Giovanna Arriola MD HEMATOLOGY ORDERA BLES Performing Organization Address [facility] Co de Phone Number [facility] [place] [address] * Lipase (06/16/2018 4:05 PM EST) Lipase 36 0 - 60 unit/L [facility] Blood specimen (specimen) 06/16/2018 4:05 PM EST 06/16/2018 4:20 PM EST Narrative Resulting Agency Comment Spec In Lab Nick Mendes MD CHEMISTRY ORDERAB LES Performing Organization Address [facility] Co de Phone Number [facility] [place] [address] * (ABNORMAL) Comprehensive metabolic panel (non-fasting) (06/16/2018 4:05 PM EST) Glucose 93 65 - 199 mg/dL [facility] Comment:Diabetes: >=200 mg/d L plus symptoms Blood Urea Nitrogen 17 10 - 20 mg/dL [facility] Creatinine 1.24 0.80 - 1.50 mg/dL [facility] Sodium 139 135 - 145 mmol/L [facility] Potassium Not Perf 3.5 - 5.0 [facility] Comment: called 06/16/18 17:05 to Carmen Ferrell Please note: ??Patients with WBC >100,000 may have falsely elevated Potassium levels. ??For accurate Potassium quantification in these patients send serum separator tube (gold top) for subsequent determinations. ??Contact the Clinical Chemistry Laboratory if there are any questions. Chloride 99 98 - 107 mmol/L [facility] Carbon Dioxide 28 22 - 31 mmol/L [facility] Anion Gap 12 5 - 15 mmol/L [facility] Calcium 9.3 8.5 - 10.5 mg/dL [facility] Protein, Total 7.6 6.1 - 8.0 gm/dL [facility] Albumin 4.0 3.2 - 5.2 gm/dL [facility] Aspartate Aminotransferase Not Perf 0 - 39 [facility] Comment:called 06/16/18 17:0 5 to Carmen Ferrell Alanine Aminotransferase Not Perf 0 - 55 [facility] Comment:called 06/16/18 17:0 5 to Carmen Ferrell Alkaline Phosphatase 64 40 - 120 unit/L [facility] Bilirubin, Total 2.0(H) [...] of body mass or the acutely ill. [email or web address]SAnkf eGFR 68 >=60 mL/min/1. 73 m?? [facility] Comment: The eGFR was calculated using the CKD-EPI equation. As with all creatinine based estimates of kidney function, eGFR values calculated with the CKD-EPI equation are not accurate in patients with acute kidney failure, extremes of body mass or the acutely ill. [email or web address]SAnkf Blood specimen (specimen) 06/16/2018 4:05 PM EST 06/16/2018 4:20 PM EST Narrative Resulting Agency Comment Spec In Lab Nick Mendes MD CHEMISTRY [place] [address] documented in this encounter Visit Diagnoses Not [...] - Reason: Transfer to a Procedural area)1644 ([facility] Unhold - Provider: Admin Adt)181 (Given - Provider: Tomasa Crawford RN) 0742 (Given - Provider: Sandra Ortiz RN) levothyroxine (SYNTHROID) tablet 100 mcg 100 mcg, Oral, EVERY MORNING, First dose on Laura 06/17/18 at 0700, Until Discontinued, Routine 06 (Given - Provider: Ozzy Mccormick RN)151 ([facility] Hold - Provider: Admin Adt - Reason: Transfer to a Procedural area)164 ([facility] Unhold - Provider: Admin Adt) 0742 (Given - Provider: Sandra Ortiz RN) magnesium oxide (MAG-OX) tablet 400 mg 400 mg, Oral, 2 TIMES DAILY, First dose on Thu06/16/18 at 2100, Until Discontinued, Routine 2200 (Given - Provider: Ozzy Mccormick RN) 0844 (Given - Provider: Tomasa Crawford RN)151 ([facility] Hold - Provider: Admin Adt - Reason: Transfer to a Procedural area)164 ([facility] Unhold - Provider: Admin Adt)2030 (Given - [...] RN) 0625 (Given - Provider: Ozzy Mccormick RN)151 ([facility] Hold - Provider: Admin Adt - Reason: Transfer to a Procedural area)164 ([facility] Unhold - Provider: Admin Adt)181 (Given - [...] Routine 1155 (Given - Provider: Tomasa Crawford RN)151 ([facility] Hold - Provider: Admin Adt [...] Procedural area)1644 ([facility] Unhold - Provider: Admin Adt)2029 (Given [...] RN) documented in this encounter Care Teams [employer] Worker Relationship Specialty Start Date End Date Urbano Denis DO [address] [place] [address] PCP - General 09/03/12 03/17/22 Ruchi Valles RN Nurse Clinic Transplant Surgery 07/30/15 documented as of this encounter
--- OUTSIDE RECORDS SUMMARY | 2024-05-16 17:26 | XMS_ITS | Encounter Summary ---
[place] [address] Care Team Providers Care Asphalt Machine Operator Name Role Phone Adeel Urbano KIRBY Primary Care Provider Reason for Visit * Auth/Cert Specialty Diagnoses / Procedures Referred By Humberto flor Referred To Contact Diagnoses Hydronephrosis Referral ID Status Reason Start Date Expiration Date Visits Re quested Visits Authorized [id number] 1 1 Encounter Details Date Type Department Care Team (Late st Contact Info) Description 06/17/2018 3:28 PM EST Anesthesia Event [place] [phone] Jesus Tavares MD [facility] [place] [address] Keenan Washburn MD [facility] [place] [address] Anesthesia Record Procedure Summary Procedure Name Responsible [...] 1605; median cubital vein (antecubital fossa), right; [id number] catheter system; 20 gauge; MLS; 0; 06/18/18; [...] Tavares MD - 06/17/2018 4:16 PM EST [facility] Department of Anesthesiology Post-procedure Note Patient: Cody Bolden Procedure Summary Date: 06/17/18 Room / Location: [address] MAIN OR Anesthesia Start: 1527 Anesthesia Stop: 1558 Procedure: CYSTO, RETROGRADE, URETEROPYELOGRAPHY (WRVU 2.37) (Left Ureter) Diagnosis: (Hydronephrosis) Surgeon: Edinson Grider III, MD Responsible Provider: Jesus Tavares MD Anesthesia Type: general ASA Status: 3 All Anesthesia Providers: Anesthesiologist: Jesus Tavares MD CHICKEN SEXER: Sonu Smith CRNA Most Recent Vitals: 06/17/18 1600 BP: 105/50 Pulse: (!) 47 Resp: 17 Temp: SpO2: 95% Pain Patient Location: PACU/[facility] Level of Consciousness: Awake and Alert [...] Vitamin D deficiency ??? 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 PRO REIMPLANT URETER, SINGLE URETER Left 05/20/2016 @URETERONEOCYSTOSTOMY ANASTOMOSIS OF SINGLE URETER TO BLADDER performed by Santosh Arredondo MD at [facility] OR ??? PRO REIMPLANT URETER, SINGLE URETER N/A 05/20/2016 @URETERONEOCYSTOSTOMY ANASTOMOSIS OF SINGLE URETER TO BLADDER performed by Que Amaro MD at [facility] OR ??? PRO TOTAL KNEE ARTHROPLASTY Right 11/25/2017 TOTAL KNEE ARTHROPLASTY (WRVU 20.72) performed by Breezy Dale MD at [facility] MAIN OR ??? PRO TRANSPLANT, PREP CADAVER RENAL GRAFT N/A 09/16/2015 @PREPARATION CADAVERIC RENAL ALLOGRAFT performed by Franko Larkin MD at [facility] OR ??? PRO TRANSPLANTATION OF KIDNEY N/A 09/16/2015 @KIDNEY TRANSPLANT, WITHOUT RECIPIENT NEPHRECTOMY performed by Franko Larkin MD at [facility] OR Social History Tobacco Use ??? Smoking [...] EST TH Visit (TeleHealth) Cardiology at [address] [phone] Byron Brown MD [facility] [place] [address] 07/14/2024 10:00 AM EST Hospital Encounter Non-[place]vasive [place] [phone] Arrived documented as of this encounter Goals [...] bolus injection (Anesthesia) PRN, Starting on Laura 18 at 1529, Until Laura 06/17/18 at 1559, Anesthesia Intra-op Given 06/17/2018 3:29 PM EST 150 mg documented in this encounter Care Teams Asphalt Machine Operator Relationship Specialty Start Date End Date Urbano Denis DO [address] [place] [address] PCP - General 09/03/12 03/17/22 Ruchi Valles RN Nurse Clinic Transplant Surgery 07/30/15 documented as of this encounter
--- OUTSIDE RECORDS SUMMARY | 2024-05-16 17:26 | XMS_ITS | Encounter Summary ---
[place] [address] Care Team Providers Care Supervisor Furnace Process Name Role Phone AdeelUrbano toscano Primary Care Provider [phone] Reason for Visit * Reason Onset Date Comments Medication Refill 12/04/2017 Encounter Details Date Type Department Care Team (Late st Contact Info) Description 12/04/2017 Refill [place] [address] Sonia Mota RN S/P R TKA 11/25/17 [...] for request: Cody Gomez Keniamarialuisaneri Mailing address: [address] [place] [address] [place] [phone] Surgeon: Dr. Dale Case: right total knee [...] EST TH Visit (TeleHealth) Cardiology at [address] [phone] Byron Brown MD [facility] [place] [address] 07/14/2024 10:00 AM EST Hospital Encounter Non[place] [address] Arrived documented as of this encounter Goals Goal Patient Goal Type Associated Problems Recent Progress Patient-Stated? Author [facility] Medication Compliance and Understanding Patient Facing Action Plan On track( 017 10:41 AM EDT) No Selena Cisneros [facility] Note: Patient Goal: Clear hepatitis C Timeframe to meet goal: within 12 weeks of therapy documented as of this encounter Visit Diagnoses Diagnosis S/P R TKA 11/25/17 Dr. Dale Knee joint replacement by other means documented in this encounter Care Teams Supervisor Furnace Process Relationship Specialty Start Date End Date Urbaon Denis DO [address] [place] [address] PCP - General 09/03/12 03/17/22 Ruchi Valles RN Nurse Clinic Transplant Surgery 07/30/15 documented as of this encounter
--- OUTSIDE RECORDS SUMMARY | 2024-05-16 17:26 | XMS_ITS | Encounter Summary ---
Author Organization [facility] Address [facility] [place] [address] Care Team Providers Care Windsmith Name Role Phone Urbano Denis DO Primary Care Provider Reason for Visit * Reason Comments Abdominal Pain * Auth/Cert Specialty Diagnoses / Procedures Referred By Humberto flor Referred To Contact Diagnoses Hydronephrosis Referral ID Status Reason Start Date Expiration Date Visits Re quested Visits Authorized [id number] 1 1 Encounter Details Date Type Department Care Team (Late st Contact Info) Description 06/16/2018 2:45 PM EST - 06/18/2018 3:00 PM EST Emergency [address] [place] [address] Nick Mendes MD [facility] [place] [address] Ari Lucero MD [facility] [place] [address] Jennifer Amaro MD [facility] [place] [address] H/O kidney transplant; S/P R TKA 11/25/17 [...] or rigors on Thursday and presented to [facility] where he was worked [...] and emesis on Thursday prior to the [facility] visit.This spontaneously resolved and [...] calculus in the ureter of the LEFT [place] kidney with evidence of proximal hydroureter and [...] (WRVU 2.37) Operative Findings: 1. B/l orthotopic [place] UOs 2. 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 Normal bladder 4. No contrast passed proximally up left [place] ureter, unable to advance wire, distal ureter had been previously ligated Hospital Course: Ethel Akins was admitted to the Transplant Surgery service on 06/16/18 with RIGHT abdominal pain. Work up with CT scan and abdominal US was notable for hydronephrosis of left [place] ureter with 6x10mm stone. No evidence of sepsis or intraperitoneal process with reassuring imag ing/labs, benign abdominal exam and vital signs within normal limits. 06/17/18 the patient was taken to the OR with urology and retrograde ureteropyelogram confirmed, as noted in op report, that the L [place] ureter had been ligated during previous Boari [...] and given to the patient. Patient Instructions [facility] Department of Surgery Discharge Instructions [...] with the Surgery nurses. The number is [phone]. - During the night or weekends call the [facility] blow moulding machine operator at [phone] and ask to speak to the surgery resident caregivers non medical for general surgery. Please note: Your surgeon may not be Building Maintenance Engineer, especially during the night or on weekends, so be ready to describe yourself and your surgery when you call. FOLLOW UP You will have an appointment made with the transplant clinic- you will be contacted- please call with any questions Future Appointments Date Time Provider Department Center 06/18/2018 8:00 AM [facility] US ROOM 8 [facility] information via phone/mail in the next week. If you do not hear anything, please call the clinic [phone] to confirm or reschedule. If you need a prior authorization, please call the General Surgery Clinic nurses [phone] for prior authorizations assistance General Instructions Instructions [...] to urinate, please call our office at [phone] before 5PM or [phone] after hours. Call Doctor for: - copious blood or large clots in your urine - you are unable to urinate - severe back or side pain - pain not controlled by oral medications at home - persistent nausea and vomiting - any fever > 101.3F The number for questions is [phone] before 5 PM weekdays and [phone] after 5 PM and weekends. Follow-up Recommendations [...] to urinate, please call our office at [phone] before 5PM or [phone] after hours. Call Doctor for: - copious blood or large clots in your urine - you are unable to urinate - severe back or side pain - pain not controlled by oral medications at home - persistent nausea and vomiting - any fever > 101.3F The number for questions is [phone] before 5 PM weekdays and [phone] after 5 PM and weekends. * Patient Instructions* Jennifer Palmer - 06/17/2018 5:29 PM EST [facility] Department of Surgery Discharge Instructions [...] with the Surgery nurses. The number is [phone]. - During the night or weekends call the [facility] blow moulding machine operator at [phone] and ask to speak to the surgery resident caregivers non medical for general surgery. Please note: Your surgeon may not be Building Maintenance Engineer, especially during the night or on weekends, so be ready to describe yourself and your surgery when you call. FOLLOW UP You will have an appointment made with the transplant clinic- you will be contacted- please call with any questions Future Appointments Date Time Provider Department Center 06/18/2018 8:00 AM [facility] ROOM 8 [facility] information via phone/mail in the next week. If you do not hear anything, please call the clinic [phone] to confirm or reschedule. If you need a prior authorization, please call the General Surgery Clinic nurses [phone] for prior authorizations assistance documented in this [...] Amaro MD - 06/18/2018 1:49 PM EST [facility] Transplant Progress Note Patient Name: Ethel Akins : [id number] MR#: [id number] Admit Date: 06/16/2018 2:45 PM Mr. Akins is hospital day #2 following admission for right lower quadrant pain that radiates to the right testicle. I reviewed Dr. Arredondo's operative report yesterday and the records suggested that Dr. Arredondo ligated the left [place] ureter at the patient's Boari flap reconstruction operation that took place in 2015. This was likely to have explained the dilated left [place] kidney collecting system and hydroureter. I contacted [...] Intraoperative findings as follows: 1. B/l orthotopic [place] UOs 2. 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 Normal bladder 4. No contrast passed proximally up left [place] ureter, unable to advance wire, distal ureter [...] RLQ abdominal pain, found to have obstructed [place] LEFT ureter with 6x10mm stone 24h/S Reports [...] previously there is severe 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 ?? Transplant kidney: Transplant kidney [...] imaging showing 6x10mm obstructing stone in LEFT [place] ureter. He continues to report R>L Abdominal [...] Bah MD - 06/16/2018 6:16 PM EST [facility] Department of Transplant Surgery Inpatient Consult Note Patient Name: Ethel Akins Patient Age: 67 y.o. Birthdate: 1950 Admit date: 06/16/2018 Attending Physician: Ari Lucero MD REQUESTED BY: ED CONSULTATION QUESTION: Obstruction of L [place] ureter. CC: RLQ abd pain 67??y.o. male [...] by Jennifer Amaro MD at [facility] OR ??? PRO REIMPLANT URETER, SINGLE URETER Left 05/20/2016 @URETERONEOCYSTOSTOMY ANASTOMOSIS OF SINGLE URETER TO BLADDER performed by Santosh Arredondo MD at [facility] OR ??? PRO REIMPLANT URETER, SINGLE URETER N/A 05/20/2016 @URETERONEOCYSTOSTOMY ANASTOMOSIS OF SINGLE URETER TO BLADDER performed by Jennifer Amaro MD at [facility] OR ??? PRO TOTAL KNEE ARTHROPLASTY Right 11/25/2017 TOTAL KNEE ARTHROPLASTY (WRVU 20.72) performed by Breezy Dale MD at [facility] OR ??? PRO TRANSPLANT, PREP CADAVER RENAL GRAFT N/A 09/16/2015 @PREPARATION CADAVERIC RENAL ALLOGRAFT performed by Franko Larkin MD at [facility] OR ??? PRO TRANSPLANTATION OF KIDNEY N/A 09/16/2015 @KIDNEY TRANSPLANT, WITHOUT RECIPIENT NEPHRECTOMY performed by Franko Larkin MD at [facility] OR Family History: Family History [...] on CT is a 6x10mm obstructing L [place] ureteral stone with new hydronephrosis. His appendix [...] or rigors on Thursday and presented to [facility] where he was worked [...] and emesis on Thursday prior to the [facility] visit. This spontaneously resolved [...] calculus in the ureter of the LEFT [place] kidney with evidence of proximal hydroureter and hydronephrosis. There is no gas in the collecting system proximal to this obstruction. Review of Dr. Arredondo's 05/2016 operative report indicates that the left [place] ureter was ligated at that procedure which [...] need for therapy of the dilated left [place] kidney tract in the setting of the left [place] kidney ureter ligation in 2016. This is [...] home doses. Will verify this with the post-tool procurement coordinator team. Tacrolimus trough level pending and [...] Patient states that Thursday he presented to [facility] with what he thought was appendicitis; [...] this before. Had 2x cup coffee and kyrgyz muffin today, but states that appetite has [...] previously there is severe 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 ?? Transplant kidney: Transplant kidney [...] mm renal calculous and new hydronephrosis in [place] kidney. He was seen by transplant medicine [...] residual kidney stone and obstruction in his [place] kidney on the left. Because of the tenuous nature of his transplant the transplant service would like to admit him. documented in this encounter Miscellaneous Notes * Op Note - Edinson Grider III, MD - 06/17/2018 3:45 PM EST [facility] Operative Note Patient Name: Ethel Akins : [id number] MR#: [id number] Case Date: 06/17/2018 Surgeon: Surgeon(s) and Role: * Edinson Grider III, MD - Primary * Shin Elam MD - Resident-Surgeon Chief Preoperative diagnosis: Hydronephrosis Postoperative diagnosis: Hydronephrosis Procedure(s) (LRB): CYSTO, RETROGRADE, URETEROPYELOGRAPHY (WRVU 2.37) (Left) Findings: 1. B/l orthotopic [place] UOs 2. 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 Normal bladder 4. No contrast passed proximally up left [place] ureter, unable to advance wire, distal ureter [...] bladder. 360 degree cystoscopy revealed b/l orthotopic [place] UOs and a widely patient reimplant ureter/Boari [...] an incidental finding of a hydronephrotic left [place] kidney with a 6 x 10 mid [...] Health/Prescription Coverage: Primary Insurance: MEDICARE Secondary Insurance: [employer] [facility] Prescription Coverage: Yes; can manage minimal out of pocket co-pays. Preferred Pharmacy: [facility]; mails prescriptions to pt's home. Primary Care Provider: Urbano Densi DO [phone] Patient/Caregiver Goals of Treatment: Effective pain management; effective stent placement with lessoning of hydronephrosis. Potential Needs for Transition of Care: Rehab/SNF: no Home Health: no DME: Owns a cane, fww. Dialysis: no Community Resources: None offered. Transportation: Pt drove himself to [facility] yesterday; car here; he plans to drive himself home. Anticipated Barriers to Discharge/Special Considerations: None. Assessment: Pt admitted from the ED after complaining of right abdominal pain. CT of abdomen showed, normal left lower quadrant transplant kidney but a 6 x 10 mm obstructing stone in the mid to distal ureter with marketed hydronephrosis of the left [place] kidney. Plan: Pt going to OR today for placement of left ureteral stent. [facility]. Pt does not need any home services at time of interview. A member of the Care Management team will continue to monitor progress, follow for continuity of care and assist with transition of care planning. Giovanna Haro RN Pager: [phone] * Consult Note - Tal Chen MD [...] ureter with marketed hydronephrosis of the left [place] kidney. Urology was consulted for obstructing ureteral stone of [place] left kidney in the setting of immunosuppression [...] by Jennifer Amaro MD at [facility] OR ??? PRO REIMPLANT URETER, SINGLE URETER Left 05/20/2016 @URETERONEOCYSTOSTOMY ANASTOMOSIS OF SINGLE URETER TO BLADDER performed by Santosh Arredondo MD at [facility] OR ??? PRO REIMPLANT URETER, SINGLE URETER N/A 05/20/2016 @URETERONEOCYSTOSTOMY ANASTOMOSIS OF SINGLE URETER TO BLADDER performed by Jennifer Amaro MD at [facility] OR ??? PRO TOTAL KNEE ARTHROPLASTY Right 11/25/2017 TOTAL KNEE ARTHROPLASTY (WRVU 20.72) performed by Breezy Dale MD at [facility] OR ??? PRO TRANSPLANT, PREP CADAVER RENAL GRAFT N/A 09/16/2015 @PREPARATION CADAVERIC RENAL ALLOGRAFT performed by Franko Larkin MD at [facility] OR ??? PRO TRANSPLANTATION OF KIDNEY N/A 09/16/2015 @KIDNEY TRANSPLANT, WITHOUT RECIPIENT NEPHRECTOMY performed by Franko Larkin MD at [facility] OR No current facility-administered medications on file [...] previously there is severe 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 ?? Transplant kidney: Transplant kidney [...] an incidental finding of a hydronephrotic left [place] kidney with a 6 x 10 mid [...] However, the patient has an obstructed left [place] kidney and is on immunosuppression.Therefore, we would [...] feels that ureteral stent placement for left [place] kidney decompression isindicated at this time give [...] Chen MD, MPH Urology, PGY-2 Consult Pager #[phone] 06/17/2018 * Plan of Care - Ozzy [...] as Appropriate) 06/17/18402 Interdisciplinary Rounds/Family Conf Participants field case manager;physician;pharmacy * Consult Note - Tal Chen MD [...] ureter with marketed hydronephrosis of the left [place] kidney. Urology was consulted for obstructing ureteral stone of [place] left kidney in the setting of immunosuppression [...] by Jennifer Amaro MD at [facility] OR ??? PRO REIMPLANT URETER, SINGLE URETER Left 05/20/2016 @URETERONEOCYSTOSTOMY ANASTOMOSIS OF SINGLE URETER TO BLADDER performed by Santosh Arredondo MD at [facility] OR ??? PRO REIMPLANT URETER, SINGLE URETER N/A 05/20/2016 @URETERONEOCYSTOSTOMY ANASTOMOSIS OF SINGLE URETER TO BLADDER performed by Jennifer Amaro MD at [facility] OR ??? PRO TOTAL KNEE ARTHROPLASTY Right 11/25/2017 TOTAL KNEE ARTHROPLASTY (WRVU 20.72) performed by Breezy Dale MD at [facility] OR ??? PRO TRANSPLANT, PREP CADAVER RENAL GRAFT N/A 09/16/2015 @PREPARATION CADAVERIC RENAL ALLOGRAFT performed by Franko Larkin MD at [facility] OR ??? PRO TRANSPLANTATION OF KIDNEY N/A 09/16/2015 @KIDNEY TRANSPLANT, WITHOUT RECIPIENT NEPHRECTOMY performed by Franko Larkin MD at [facility] OR No current facility-administered medications on file [...] previously there is severe 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 ?? Transplant kidney: Transplant kidney [...] an incidental finding of a hydronephrotic left [place] kidney with a 6 x 10 mid [...] However, the patient has an obstructed left [place] kidney and is on immunosuppression.Therefore, we would [...] Chen MD, MPH Urology, PGY-2 Consult Pager #[phone] 06/16/2018 Associated attestation - Fermin Whitney MD - 06/18/2018 7:33 AM EST I have seen the patient and reviewed the resident's above history and I agree with the details as written. The assessment and plan were formulated in discussion with me and I agree with them as documented. In discussion with Dr. Amaro, it sounds like his left [place] ureter was ligated during repair ofhis necrotic [...] EST TH Visit (TeleHealth) Cardiology at [address] [id number] Byron Brown MD [facility] [place] [address] 07/14/2024 10:00 AM EST Hospital Encounter Non-[place] [id number] Arrived documented as of this encounter Goals [...] AM EST) HCV Viral Load <12 IU/mL [facility] HCV Viral Load Result: <12 IU/mL (Target Not Detected) Indication for Study: Hepatitis C Infection Analysis: The [employer] RealTime HCV assay is an in vitro reverse ppap coordinator polymerase chain reaction (RT-PCR)for the quantitation of hepatitis C viral (HCV) RNA in human serum or plasma (EDTA) from HCV-infected individuals. Sample: plasma (0.7 mL minimum volume) Method: Sparks RealTime HCV Assay Linear Range: 12 IU/mL - 100,000,000IU/mL Note: The [employer] RealTime HCV Assay has been approved by the U.S. Food and Drug Administration. [facility] Comment: [VERIFIED DATE]06.23.18 Verified By:Nella Evans (Electronic Signature) Blood specimen (specimen) 06/18/2018 11:07 AM EST 06/21/2018 11:26 AM EST Narrative Resulting Agency Comment Spec In Lab Jennifer JENNINGS [facility] [place] [address] * US Scrotum (06/18/2018 8:45 AM EST) [...] 09:31 am) PATIENT INFO: ID #: ? [id number] ?: ??[birth year] (67 yrs) Name: ? ETHEL AKINS ?Visit Date: 06/18/2018 08:42 am PERFORMED BY: Performed By: ? Osmar Dowd RDMS Attending: ?Kristen GERBER, Valencia Almonte Resident: ? Patricia Malik DO Referred By: ?JENNIFER AMARO Location: ? [place] SERVICE(S) PROVIDED: ??US - Scrotum and Contents with Limited Vascular ?[id number], [id number] ??evaluation - [id number] INDICATIONS: ??RLQ and scrotal pain RIGHT TESTICLE: [...] 06/18/2018 09:31 am) PATIENT INFO: ID #: [id number] : [birth year] (67 yrs) Name: ETHEL AKINS Visit Date: 06/18/2018 08:42 am PERFORMED BY: Performed By: Osmar Dowd RDMS Attending: Valencia Carson MD Resident: Patricia Malik DO Referred By: JENNIFER AMARO Location: [place] SERVICE(S) PROVIDED: [facility] - Scrotum and Contents with Limited Vascular [id number], [id number] evaluation - [id number] INDICATIONS: RLQ and scrotal pain RIGHT TESTICLE: [...] 5:53 AM EST) Neutrophil % 61.9 % [facility] Neutrophil Absolute 4.45 1.70 - 6.10 x10(3)/[facility] Lymph % 23.8 % [facility] Lymphocytes Abs 1.7 0.9 - 3.2 x10(3)/[facility] Monocyte % 8.4 % [facility] Monocyte Abs 0.6 0.3 - 0.9 x10(3)/[facility] Eos % 4.5 % [facility] Eosinophils Abs 0.3 0.0 - 0.4 x10(3)/[facility] Basophil % 1.0 % [facility] Baso Absolute 0.1 0.0 - 0.1 x10(3)/[facility] Immature Gran % 0.40 % [facility] Blood specimen (specimen) 06/18/2018 5:53 AM EST 06/18/2018 6:13 AM EST Narrative Resulting Agency Comment Spec In Lab Jennifer Palmer MD HEMATOLOGY OR DERABLES [facility] [place] [address] * Hemogram (06/18/2018 5:53 AM EST) White Blood Cell 7.2 4.0 - 9.5 x10(3)/[facility] Red Blood Cell 5.13 4.58 - 5.54 x10(6)/[facility] Hemoglobin 15.6 13.7 - 16.5 gm/dL [facility] Hematocrit 45.5 40.5 - 48.5 % [facility] Mean Cell Volume 88.7 82.9 - 93.1 [facility] Mean Cell Hemoglobin 30.4 27.5 - 32.1 pg [facility] Mean Cell Hemoglobin Concentration 34.3 32.0 - 35.7 gm/dL [facility] Platelet 259 145 - 357 x10(3)/[facility] RDW Standard Deviation 42.3 36.0 - 45.0 [facility] RDW coefficient of variation 13.0 11.4 - 13.8 % [facility] Mean Platelet Volume 9.8 7.6 - 12.9 [facility] NRBC% auto 0.0 % [facility] NRBC Absolute 0.000 0.000 - 0.000 x10(3)/[facility] Blood specimen (specimen) 06/18/2018 5:53 AM EST 06/18/2018 6:13 AM EST Narrative Resulting Agency Comment Spec In Lab Jennifer Palmer MD HEMATOLOGY OR DERABLES Performing Organization Address [facility]/[employer] Co de Phone Number [facility] [place] [address] * Phosphorus (06/18/2018 5:53 AM EST) Phosphorus 3.3 2.5 - 4.5 mg/dL [facility] Blood specimen (specimen) 06/18/2018 5:53 AM EST 06/18/2018 6:13 AM EST Narrative Resulting Agency Comment Spec In Lab Jennifer Amaro MD CHEMISTRY ROCHELLE JENNINGS Performing Organization Address [facility] Phone Number [facility] [place] [address] * Magnesium (06/18/2018 5:53 AM EST) Magnesium 0.72 0.69 - 1.07 mmol/L [facility] Blood specimen (specimen) 06/18/2018 5:53 AM EST 06/18/2018 6:13 AM EST Narrative Resulting Agency Comment Spec In Lab Jennifer Amaro MD CHEMISTRY ORDTiny JENNINGS Performing Organization Address [facility] de Phone Number [facility] [place] [address] * (ABNORMAL) Comprehensive metabolic panel (non-fasting) (06/18/2018 5:53 AM EST) Glucose 113 65 - 199 mg/dL [facility] Comment:Diabetes: >=200 mg/d L plus symptoms Blood Urea Nitrogen 18 10 - 20 mg/dL [facility] Creatinine 1.34 0.80 - 1.50 mg/dL [facility] [...] 15 mmol/L [facility] Calcium 8.8 8.5 - 10.5 mg/dL [facility] Protein, Total 6.4 6.1 - 8.0 gm/dL [facility] Albumin 3.5 3.2 - 5.2 gm/dL [facility] Aspartate Aminotransferase 14 0 - 39 unit/L [facility] Alanine Aminotransferase 14 0 - 55 unit/L [facility] Alkaline Phosphatase 61 40 - 120 unit/L [facility] Bilirubin, Total 2.7(H) 0.2 - 1.3 mg/dL [facility] Est Glomerular Filtration Rate 54(L) >=60 mL/min/1. 73 m?? [facility] Comment: The eGFR was calculated using the CKD-EPI equation. As with all creatinine based estimates of kidney function, eGFR values calculated with the CKD-EPI equation are not accurate in patients with acute kidney failure, extremes of body mass or the acutely ill. http://[employer]/DHMCnkf eGFR 62 >=60 mL/min/1. 73 m?? [facility] Comment: The eGFR was calculated using the CKD-EPI equation. As with all creatinine based estimates of kidney function, eGFR values calculated with the CKD-EPI equation are not accurate in patients with acute kidney failure, extremes of body mass or the acutely ill. http://[employer]/DHMCnkf Blood specimen (specimen) 06/18/2018 5:53 AM EST 06/18/2018 6:13 AM EST Narrative Resulting Agency Comment Spec In Lab Jennifer Amaro MD CHEMISTRY ORDE RABLES Performing Organization Address City/[facility]/ZIP Co de Phone Number [facility] [place] [address] * XR Fluoro No Rad <1Hr - OR Use (06/17/2018 4:05 PM EST) Narrative RAD - 06/17/2018 4:05 PM EST This order does not need a radiologist interpretation. ?? Jennifer Amaro MD IMG FLUORO ORD ERABLES Performing Organization Address City/[facility]/ZIP Co de Phone Number RAD [place], [place] * ABORH Recheck Status (06/17/2018 1:51 PM EST) ABORH Type Recheck Completed [facility] Blood specimen (specimen) 06/17/2018 1:51 PM EST 06/17/2018 3:10 PM EST Narrative Resulting Agency Comment Spec In Lab Jennifer Amaro MD BLOOD BANK LAB ORDERABLES Performing Organization Address [facility]/ZIP Co de Phone Number [facility] [place] [address] * Antibody screen (06/17/2018 1:51 PM EST) Ab Screen Interp Negative [facility] Expires at [id number] on: 06/20/2018 [facility] Blood specimen (specimen) 06/17/2018 1:51 PM EST 06/17/2018 3:10 PM EST Narrative Resulting Agency Comment Spec In Lab Jennifer Amaro MD BLOOD BANK LAB ORDERABLES Performing Organization Address City/[facility]/ZIP Co de Phone Number [facility] [place] [address] * ABO/Rh Typing (06/17/2018 1:51 PM EST) ABORH Type AB Pos [facility] Blood specimen (specimen) 06/17/2018 1:51 PM EST 06/17/2018 3:10 PM EST Narrative Resulting Agency Comment Spec In Lab Jennifer Amaro MD BLOOD BANK LAB ORDERABLES Performing Organization Address [facility] de Phone Number [facility] [place] [address] * Tacrolimus level (06/17/2018 8:50 AM EST) Tacrolimus 5.2 ng/mL [facility] Comment: Trough therapeutic: ??5-15 ng/mL Performed by ultra-performance liquid chromatography tandem mass spectrometry (UPLCMS/MS). This test was developed and its performance characteristics determined by [facility]. It has not been cleared [...] Lucero MD CHEMISTRY ORDERABLES Performing Organization Address [facility] de Phone Number [facility] [place] [address] * Lipase (06/17/2018 6:19 AM EST) Lipase 25 0 - 60 unit/L [facility] Blood specimen (specimen) 06/17/2018 6:19 AM EST 06/17/2018 6:40 AM EST Narrative Resulting Agency Comment Spec In Lab Jennifer Amaro MD CHEMISTRY ORDE RABLES Performing Organization Address [facility] de Phone Number [facility] [place] [address] * Amylase (06/17/2018 6:19 AM EST) Amylase 29 28 - 100 unit/L [facility] Blood specimen (specimen) 06/17/2018 6:19 AM EST 06/17/2018 6:39 AM EST Narrative Resulting Agency Comment Spec In Lab Jennifer Amaro MD CHEMISTRY ROCHELLE JENNINGS Performing Organization Address [facility] de Phone Number [facility] [place] [address] * Phosphorus (06/17/2018 6:19 AM EST) Phosphorus 2.8 2.5 - 4.5 mg/dL [facility] Blood specimen (specimen) 06/17/2018 6:19 AM EST 06/17/2018 6:39 AM EST Narrative Resulting Agency Comment Spec In Lab Jennifer Amaro MD CHEMISTRY ROCHELLE JENNINGS Performing Organization Address [facility] Phone Number [facility] [place] [address] * Magnesium (06/17/2018 6:19 AM EST) Magnesium 0.70 0.69 - 1.07 mmol/L [facility] Blood specimen (specimen) 06/17/2018 6:19 AM EST 06/17/2018 6:39 AM EST Narrative Resulting Agency Comment Spec In Lab Jennifer Amaro MD CHEMISTRY ROCHELLE JENNINGS Performing Organization Address [facility] de Phone Number [facility] [place] [address] * (ABNORMAL) Comprehensive metabolic panel (non-fasting) (06/17/2018 6:19 AM EST) Glucose 108 65 - 199 mg/dL [facility] Comment:Diabetes: >=200 mg/d L plus symptoms Blood Urea Nitrogen 14 10 - 20 mg/dL [facility] Creatinine 1.20 0.80 - 1.50 mg/dL [facility] Sodium 139 135 - 145 mmol/L [facility] Potassium 3.5 3.5 - 5.0 mmol/L [facility] [...] 15 mmol/L [facility] Calcium 8.8 8.5 - 10.5 mg/dL [facility] Protein, Total 6.5 6.1 - 8.0 gm/dL [facility] Albumin 3.4 3.2 - 5.2 gm/dL [facility] Aspartate Aminotransferase 16 0 - 39 unit/L [facility] Alanine Aminotransferase 17 0 - 55 unit/L [facility] Alkaline Phosphatase 64 40 - 120 unit/L [facility] Bilirubin, Total 2.8(H) 0.2 - 1.3 mg/dL [facility] Est Glomerular Filtration Rate 61 >=60 mL/min/1. 73 m?? [facility] Comment: The eGFR was calculated using the CKD-EPI equation. As with all creatinine based estimates of kidney function, eGFR values calculated with the CKD-EPI equation are not accurate in patients with acute kidney failure, extremes of body mass or the acutely ill. http://[employer]/[facility] CITYnkf eGFR 71 >=60 mL/min/1. 73 m?? [facility] Comment: The eGFR was calculated using the CKD-EPI equation. As with all creatinine based estimates of kidney function, eGFR values calculated with the CKD-EPI equation are not accurate in patients with acute kidney failure, extremes of body mass or the acutely ill. [email or web address]/DHnkf Blood specimen (specimen) 06/17/2018 6:19 AM EST 06/17/2018 6:39 AM EST Narrative Resulting Agency Comment Spec In Lab Jennifer Amaro MD CHEMISTRY ORDE RABLES [facility] [place] [address] * Hemogram (06/17/2018 6:19 AM EST) White Blood Cell 7.6 4.0 - 9.5 x10(3)/[facility] Red Blood Cell 5.13 4.58 - 5.54 x10(6)/[facility] Hemoglobin 15.9 13.7 - 16.5 gm/dL [facility] Hematocrit 45.6 40.5 - 48.5 % [facility] Mean Cell Volume 88.9 82.9 - 93.1 fL [facility] Mean Cell Hemoglobin 31.0 27.5 - 32.1 pg [facility] Mean Cell Hemoglobin Concentration 34.9 32.0 - 35.7 gm/dL [facility] Platelet 274 145 - 357 x10(3)/[facility] RDW Standard Deviation 42.4 36.0 - 45.0 [facility] RDW coefficient of variation 13.0 11.4 - 13.8 % [facility] Mean Platelet Volume 9.8 7.6 - 12.9 [facility] NRBC% auto 0.0 % [facility] NRBC Absolute 0.000 0.000 - 0.000 x10(3)/[facility] Blood specimen (specimen) 06/17/2018 6:19 AM EST 06/17/2018 6:40 AM EST Narrative Resulting Agency Comment Spec In Lab Jennifer Amaro MD HEMATOLOGY ORD ERABLES [facility] [place] [address] * Lipase (06/16/2018 9:54 PM EST) Lipase 44 0 - 60 unit/L [facility] Blood specimen (specimen) 06/16/2018 9:54 PM EST 06/16/2018 10:03 PM EST Narrative Resulting Agency Comment Spec In Lab Ari Lucero MD CHEMISTRY ORDERABLES Performing Organization Address City/[facility]/ZIP Co de Phone Number [facility] [place] [address] * Phosphorus (06/16/2018 9:54 PM EST) Phosphorus 2.9 2.5 - 4.5 mg/dL [facility] Blood specimen (specimen) 06/16/2018 9:54 PM EST 06/16/2018 10:03 PM EST Narrative Resulting Agency Comment Spec In Lab Ari Lucero MD CHEMISTRY ORDERABLES Performing Organization Address City/[facility]/ZIP Co de Phone Number [facility] [place] [address] * (ABNORMAL) Magnesium (06/16/2018 9:54 PM EST) Magnesium 0.61(L) 0.69 - 1.07 mmol/L [facility] Blood specimen (specimen) 06/16/2018 9:54 PM EST 06/16/2018 10:03 PM EST Narrative Resulting Agency Comment Spec In Lab Ari Lucero MD CHEMISTRY ORDERABLES Performing Organization Address City/[facility]/ZIP Co de Phone Number [facility] [place] [address] * Amylase (06/16/2018 9:54 PM EST) Amylase 34 28 - 100 unit/L [facility] Blood specimen (specimen) 06/16/2018 9:54 PM EST 06/16/2018 10:03 PM EST Narrative Resulting Agency Comment Spec In Lab Ari Lucero MD CHEMISTRY ORDERABLES [facility] [place] [address] * Hemogram (06/16/2018 9:54 PM EST) White Blood Cell 9.2 4.0 - 9.5 x10(3)/[facility] Red Blood Cell 5.25 4.58 - 5.54 x10(6)/[facility] Hemoglobin 15.7 13.7 - 16.5 gm/dL [facility] Hematocrit 44.8 40.5 - 48.5 % [facility] Mean Cell Volume 85.3 82.9 - 93.1 fL [facility] Mean Cell Hemoglobin 29.9 27.5 - 32.1 pg [facility] Mean Cell Hemoglobin Concentration 35.0 32.0 - 35.7 gm/dL [facility] Platelet 270 145 - 357 x10(3)/[facility] RDW Standard Deviation 39.4 36.0 - 45.0 [facility] RDW coefficient of variation 12.9 11.4 - 13.8 % [facility] Mean Platelet Volume 9.5 7.6 - 12.9 [facility] NRBC% auto 0.0 % [facility] NRBC Absolute 0.000 0.000 - 0.000 x10(3)/[facility] Blood specimen (specimen) 06/16/2018 9:54 PM EST 06/16/2018 10:03 PM EST Narrative Resulting Agency Comment Spec In Lab Ari Lucero MD HEMATOLOGY ORDERABLE S [facility] [place] [address] * (ABNORMAL) Comprehensive metabolic panel (non-fasting) (06/16/2018 9:54 PM EST) Glucose 99 65 - 199 mg/dL [facility] Comment:Diabetes: >=200 mg/d L plus symptoms Blood Urea Nitrogen 14 10 - 20 mg/dL [facility] Creatinine 1.12 0.80 - 1.50 mg/dL [facility] mg/dL [facility] Protein, Total 6.8 6.1 - 8.0 gm/dL [facility] Albumin 3.6 3.2 - 5.2 gm/dL [facility] Aspartate Aminotransferase 17 0 - 39 unit/L [facility] Alanine Aminotransferase 16 0 - 55 unit/L [facility] Alkaline Phosphatase 65 40 - 120 unit/L [facility] Bilirubin, Total 2.3(H) 0.2 - 1.3 mg/dL [facility] Est Glomerular Filtration Rate 67 >=60 mL/min/1. 73 m?? [facility] Comment: The eGFR was calculated using the CKD-EPI equation. As with all creatinine based estimates of kidney function, eGFR values calculated with the CKD-EPI equation are not accurate in patients with acute kidney failure, extremes of body mass or the acutely ill. http://Panasas/DHMCnkf eGFR 77 >=60 mL/min/1. 73 m?? [facility] Comment: The eGFR was calculated using the CKD-EPI equation. As with all creatinine based estimates of kidney function, eGFR values calculated with the CKD-EPI equation are not accurate in patients with acute kidney failure, extremes of body mass or the acutely ill. http://[employer].Outcome Referrals/DHMCnkf Blood specimen (specimen) 06/16/2018 9:54 PM EST 06/16/2018 10:03 PM EST Narrative Resulting Agency Comment Spec In Lab Ari Lucero MD CHEMISTRY ORDERABLES Performing Organization Address City/[facility]/ZIP Co de Phone Number [facility] [place] [address] * Blood culture (06/16/2018 6:51 PM EST) Blood Culture No growth at 5 days. [facility] Blood specimen (specimen) 06/16/2018 6:51 PM EST 06/16/2018 7:55 PM EST Comment:RH Narrative Resulting Agency Comment Spec In Lab rAi Lucero MD MICROBIOLOGY - BLOOD ORDERABLES Performing Organization Address [facility] de Phone Number [facility] [place] [address] * Blood culture (06/16/2018 6:35 PM EST) Blood Culture No growth at 5 days. [facility] Blood specimen (specimen) 06/16/2018 6:35 PM EST 06/16/2018 7:50 PM EST Comment:RAC Narrative Resulting Agency Comment Spec In Lab Ari Lucero MD MICROBIOLOGY - BLOOD ORDERABLES Performing Organization Address City/[facility] de Phone Number [facility] [place] [address] * Urinalysis Microscopic Exam (06/16/2018 6:33 PM EST) RBC, Urine 2 0 - 3 /HPF [facility] WBC, Urine <1 0 - 3 /HPF [facility] Urine specimen obtained by clean catch procedure (specimen) 06/16/2018 6:33 PM EST 06/16/2018 7:10 PM EST Narrative Resulting Agency Comment Spec In Lab Giovanna Arriola MD URINE ORDERABLES Performing Organization Address [facility] de Phone Number [facility] [place] [address] * Urine Hold (06/16/2018 6:33 PM EST) Hold, Urine Sample in lab. [facility] Urine specimen (specimen) Urine / Unknown 06/16/2018 6:33 PM EST 06/16/2018 7:11 PM EST Giovanna Arriola MD URINE ORDERABLES Performing Organization Address [facility] Phone Number [facility] [place] [address] * (ABNORMAL) Urine culture Clean Catch Urine (06/16/2018 6:33 PM EST) Urine Culture 1,000-9,000 cfu/ml Gram Positive organisms , probable contaminant(A ) [facility] Urine specimen obtained by clean catch procedure (specimen) 06/16/2018 6:33 PM EST 06/16/2018 7:48 PM EST Narrative Resulting Agency Comment Spec In Lab Ari Lucero MD MICROBIOLOGY - GENER AL ORDERABLES Performing Organization Address [facility] Phone Number [facility] [place] [address] * (ABNORMAL) Urinalysis with reflex Culture (06/16/2018 [...] [facility] pH, Urn (dipstick) 7.0 5.0 - 8.0 [facility] Blood, Urine Dipstick Negative Negative mg/dL [facility] Ketone, Urine Dipstick Negative Negative mg/dL [facility] Nitrite, Urine Dipstick Negative Negative [facility] Leukocytes, Urine Dipstick Negative Negative [facility] Appearance, Urine Dipstick Clear Clear [facility] Specific [place] Urine Automated 1.010 1.002 - 1.030 [facility] Color, Urine Dipstick Straw Yellow [facility] Reflex to Culture No [facility] Urine specimen obtained by clean catch procedure (specimen) 06/16/2018 6:33 PM EST 06/16/2018 7:10 PM EST Narrative Resulting Agency Comment Spec In Lab Ari Lucero MD URINE ORDERABLES Performing Organization Address City/State/[place] [facility] de Phone Number [facility] [place] [address] * CT Abdomen & Pelvis wo Contrast [...] previously there is severe 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 Transplant kidney: Transplant kidney noted [...] previously there is severe atrophy of the [place] LEFTkidney.. Transplant kidney: Transplant kidney noted in [...] 04:48 pm) PATIENT INFO: ID #: ? [id number] ?: ??[birth year] (67 yrs) Name: ? ETHEL AKINS ?Visit Date: 06/16/2018 04:37 pm PERFORMED BY: Performed By: ? Nicole Thompson RDMS Attending: ?Esa GERBER, Joseph Verduzco Resident: ? Patricia Malik DO Referred By: ?NICK MENDES Location: ? [place] SERVICE(S) PROVIDED: ??UABDLIM - Abdominal Limited Survey Single ? [id number] ??Organ or Quadrant - [id number] INDICATIONS: ??RUQ pain COMPARISON: Prior CT: 06/12/18. [...] 06/16/2018 04:48 pm) PATIENT INFO: ID #: [id number] : [birth year] (67 yrs) Name: ETHEL AKINS Visit Date: 06/16/2018 04:37 pm PERFORMED BY: Performed By: Nicole Thompson RDMS Attending: Joseph See MD Resident: Patricia Malik DO Referred By: NICK MENDES Location: [place] SERVICE(S) PROVIDED: UABDLIM - Abdominal Limited Survey Single 24166 Organ or Quadrant - [id number] INDICATIONS: RUQ pain COMPARISON: Prior CT: 06/12/18. [...] PM EST) Gold Hold Sample in lab. [facility] Blood specimen (specimen) Venous Draw / Unknown 06/16/2018 4:05 PM EST 06/16/2018 4:20 PM EST Giovanna Arriola MD CHEMISTRY ORDERAB LES Performing Organization Address City/[facility]/ZIP Co de Phone Number [facility] [place] [address] * Blue Tube HOLD (06/16/2018 4:05 PM EST) Blue Hold Sample in lab. [facility] Blood specimen (specimen) Venous Draw / Unknown 06/16/2018 4:05 PM EST 06/16/2018 4:20 PM EST Giovanna Arriola MD HEMATOLOGY ORDERA BLES Performing Organization Address City/[facility]/ZIP Co de Phone Number [facility] [place] [address] * Differential, Automated (06/16/2018 4:05 PM EST) Neutrophil % 63.5 % [facility] Neutrophil Absolute 4.68 1.70 - 6.10 x10(3)/[facility] Lymph % 24.5 % [facility] Lymphocytes Abs 1.8 0.9 - 3.2 x10(3)/[facility] Monocyte % 7.3 % [facility] Monocyte Abs 0.5 0.3 - 0.9 x10(3)/[facility] Eos % 3.3 % [facility] Eosinophils Abs 0.2 0.0 - 0.4 x10(3)/[facility] Basophil % 1.0 % [facility] Baso Absolute 0.1 0.0 - 0.1 x10(3)/[facility] Immature Gran % 0.40 % [facility] Blood specimen (specimen) 06/16/2018 4:05 PM EST 06/16/2018 4:20 PM EST Narrative Resulting Agency Comment Spec In Lab Giovanna Arriola MD HEMATOLOGY ORDERA BLES [facility] [place] [address] * Hemogram (06/16/2018 4:05 PM EST) White Blood Cell 7.4 4.0 - 9.5 x10(3)/[facility] Red Blood Cell 5.45 4.58 - 5.54 x10(6)/[facility] Hemoglobin 16.5 13.7 - 16.5 gm/dL [facility] Hematocrit 47.0 40.5 - 48.5 % [facility] Mean Cell Volume 86.2 82.9 - 93.1 fL [facility] Mean Cell Hemoglobin 30.3 27.5 - 32.1 pg [facility] Mean Cell Hemoglobin Concentration 35.1 32.0 - 35.7 gm/dL [facility] Platelet 278 145 - 357 x10(3)/[facility] RDW Standard Deviation 40.4 36.0 - 45.0 fL [facility] RDW coefficient of variation 13.1 11.4 - 13.8 % [facility] Mean Platelet Volume 9.7 7.6 - 12.9 fL [facility] NRBC% auto 0.0 % [facility] NRBC Absolute 0.000 0.000 - 0.000 x10(3)/[facility] Blood specimen (specimen) 06/16/2018 4:05 PM EST 06/16/2018 4:20 PM EST Narrative Resulting Agency Comment Spec In Lab Giovanna Arriola MD HEMATOLOGY ORDERA BLES Performing Organization Address City/[facility]/ZIP Co de Phone Number [facility] [place] [address] * Lipase (06/16/2018 4:05 PM EST) Pathologist [facility] Lipase 36 0 - 60 unit/L [facility] Blood specimen (specimen) 06/16/2018 4:05 PM EST 06/16/2018 4:20 PM EST Narrative Resulting Agency Comment Spec In Lab Nick Mendes MD CHEMISTRY ORDERAB LES Performing Organization Address [facility]/ZIP Co de Phone Number [facility] [place] [address] * (ABNORMAL) Comprehensive metabolic panel (non-fasting) (06/16/2018 4:05 PM EST) Pathologist [facility] Glucose 93 65 - 199 mg/dL [facility] Comment:Diabetes: >=200 mg/d L plus symptoms Blood Urea Nitrogen 17 10 - 20 mg/dL [facility] Creatinine 1.24 0.80 - 1.50 mg/dL [facility] Sodium 139 135 - 145 mmol/L [facility] Potassium Not Perf 3.5 - 5.0 [facility] Comment: called 06/16/18 17:05 to Carmen Ferrell Please note: ??Patients with WBC >100,000 may have falsely elevated Potassium levels. ??For accurate Potassium quantification in these patients send serum separator tube (gold top) for subsequent determinations. ??Contact the Clinical Chemistry Laboratory if there are any questions. Chloride 99 98 - 107 mmol/L [facility] Carbon Dioxide 28 22 - 31 mmol/L [facility] Anion Gap 12 5 - 15 mmol/L [facility] Calcium 9.3 8.5 - 10.5 mg/dL [facility] Protein, Total 7.6 6.1 - 8.0 gm/dL [facility] Albumin 4.0 3.2 - 5.2 gm/dL [facility] Aspartate Aminotransferase Not Perf 0 - 39 [facility] Comment:called 06/16/18 17:0 5 to Carmen Ferrell Alanine Aminotransferase Not Perf 0 - 55 [facility] Comment:called 06/16/18 17:0 5 to Carmen Ferrell Alkaline Phosphatase 64 40 - 120 unit/L [facility] Bilirubin, Total 2.0(H) 0.2 - 1.3 mg/dL [facility] Est Glomerular Filtration Rate 59(L) >=60 mL/min/1. 73 m?? [facility] Comment: The eGFR was calculated using the CKD-EPI equation. As with all creatinine based estimates of kidney function, eGFR values calculated with the CKD-EPI equation are not accurate in patients with acute kidney failure, extremes of body mass or the acutely ill. http://[employer].Outcome Referrals/DHnkf eGFR 68 >=60 mL/min/1. 73 m?? [facility] Comment: The eGFR was calculated using the CKD-EPI equation. As with all creatinine based estimates of kidney function, eGFR values calculated with the CKD-EPI equation are not accurate in patients with acute kidney failure, extremes of body mass or the acutely ill. http://[employer].Outcome Referrals/DHMCnkf Blood specimen (specimen) 06/16/2018 4:05 PM EST 06/16/2018 4:20 PM EST Narrative Resulting Agency Comment Spec In Lab Nick Mendes MD CHEMISTRY ORDERAB LES [facility] [place] [address] documented in this encounter Visit Diagnoses Diagnosis [...] 0845 (Given - Provider: Tomasa Crawford RN)1517 (MAR Hold - Provider: Admin Adt - Reason: Transfer to a Procedural area)1644 (MAR Unhold - Provider: Admin Adt) 0907 (Given - Provider: Selena Nicolas RN) ciprofloxacin (CIPRO) tablet 500 mg 500 mg, Oral, 2 TIMES DAILY, First dose on Thu06/17/18 at 1030, Until Discontinued, Routine, Indication for (Active or Suspected): Urinary Tract/Pyelonephritis 1155 (Given - Provider: Tomasa Crawford RN)1517 ([facility] Hold - Provider: Admin Adt - Reason: Transfer to a Procedural area)1644 ([facility] Unhold - Provider: Admin Adt)1810 (Given - Provider: Tomasa Crawford RN) 0742 (Given - Provider: Sandra Ortiz RN) levothyroxine (SYNTHROID) tablet 100 mcg 100 mcg, Oral, EVERY MORNING, First dose on Thu06/17/18 at 0700, Until Discontinued, Routine 0625 (Given - Provider: Ozzy Mccormick RN)151 ([facility] Hold - Provider: Admin Adt - Reason: Transfer to a Procedural area)164 ([facility] Unhold - Provider: Admin Adt) 0742 (Given - Provider: Sandra Ortiz RN) magnesium oxide (MAG-OX) tablet 400 mg 400 mg, Oral, 2 TIMES DAILY, First dose on Thu06/16/18 at 2100, Until Discontinued, Routine 220 (Given - Provider: Ozzy Mccormick RN) 0844 (Given - Provider: Tomasa Crawford RN)151 ([facility] Hold - Provider: Admin Adt - Reason: Transfer to a Procedural area)1644 ([facility] Unhold - Provider: Admin Adt)2030 [...] (Given - Provider: Ozzy Mccormick RN)1517 ([facility] Hold - Provider: Admin Adt - Reason: Transfer to a Procedural area)1644 ([facility] Unhold - Provider: Admin Adt)1810 [...] 0927 (Given - Provider: Selena Nicolas RN) sodium [...] Parra, JADEN)2030 (Given - Provider: Sandra Ortiz, RN) 0040 (Given - Provider: Sandra Ortiz, JADEN)0503 (Given - Provider: Maris Tavarez V, RN) documented in this encounter Care Teams [employer] Relationship Specialty Start Date End Date Urbano Denis DO [address] [place] [address] PCP - General 09/03/12 03/17/22 Hai STANLEY,Ruchi Nurse Clinic Transplant Surgery 07/30/15 documented as of this encounter
--- OUTSIDE RECORDS SUMMARY | 2024-05-16 17:26 | XMS_ITS | Encounter Summary ---
[place] [address] Care Team Providers Care Application Packager Name Role Phone Urbano Denis DO Primary Care Provider [phone] Encounter Details Date Type Department Care Team (Latest Contact Info) Description 12/18/2017 8:45 PM EDT - 12/18/2017 11:59 PM EDT Hospital [place] [address] Discharge Disposition: Home Social History Tobacco Use [...] 11:00 AM EST Visit (TeleHealth) Cardiology at [address] [phone] Byron Brown MD [facility] [place] [address] 07/14/2024 10:00 AM EST Hospital Encounter Non-[place] [address] Arrived documented as of this encounter Goals Goal Patient Goal Type Associated Problems Recent Progress Patient-Stated? Author [facility] Medication Compliance and Understanding Patient Facing Action Plan On track( 017 10:41 AM EDT) Selena Scott [facility] Note: Patient Goal: Clear hepatitis C Timeframe to meet goal: within 12 weeks of therapy documented as of this encounter Procedures Procedure Name Priority Date/Time Associated Diagnosis Comments TACROLIMUS LEVEL Routine 12/18/2017 12:4 0 PM EDT documented in this encounter Results * Tacrolimus level (12/18/2017 12:40 PM EDT) Tacrolimus 5.2 ng/mL [facility] Comment: Trough therapeutic: ??5-15 ng/mL Performed by ultra-performance liquid chromatography tandem mass spectrometry (UPLCMS/MS). This test was developed and its performance characteristics determined by [facility]. It has not been [...] CHEMISTRY ORDERAB LES [facility] [address] documented in this encounter Visit Diagnoses Not on filedocumented in this encounter Care Teams Application Packager Relationship Specialty Start Date End Date Urbano Denis DO [address] [place] [address] PCP - General 09/03/12 03/17/22 Hai STANLEY,Ruchi Nurse Clinic Transplant Surgery 07/30/15 documented as of this encounter
--- OUTSIDE RECORDS SUMMARY | 2024-05-16 17:26 | XMS_ITS | Encounter Summary ---
Author Organization [facility] [place] [address] Care Team Providers Care Plant Worker Name Role Phone Urbano Denis DO Primary Care Provider [phone] Reason for Referral * Physical Therapy (Routine) - Specialty Diagnoses / Procedures Referred By Humberto flor Referred To Contact Physical Therapy Diagnoses Status post right knee replacement Breezy Dale MD [facility] [place] [address] Referral ID Status Reason Start Date Expiration Date V isits Requested Visits Authorized [id number] Evaluate and Treat 02/01/2018 07/31/2018 12 12 Reason for Visit * Reason Comments Follow Up Surgery Right TKA DOS 8 Encounter Details Date Type Department Care Team (Late st Contact Info) Description 02/01/2018 2:40 PM EDT Office [place] [address] Breezy Dale MD [facility] [place] [address] Status post right knee replacement; S/P R [...] MD, MS Chief, Division of Adult Reconstructive Pressure ControllerArboriculture Teacher of Orthopaedics Department of Orthopaedics [facility] [phone] [email or web address] * Anatoly Richards PA - 02/01/2018 2:40 [...] Sensory: Normal Quadriceps Strength: 4 Questionnaire Responses: [facility] Surgical Postop Visit 02/01/2018 PROMIS-10 General Health [...] Choose Same Treatment Again Completely uncertain Orthopeadics [facility] Response 02/01/2018 KOOS JR Scores 42.28 Spine [facility] Response 02/01/2018 KOOS JR Scores 42.28 ASSESSMENT/PLAN: [...] EST TH Visit (TeleHealth) Cardiology at [address] [phone] Byron Brown MD [facility] [place] [address] 07/14/2024 10:00 AM EST Hospital Encounter Non-Invasive Cardiology Lab [facility] [place] [phone] Arrived Scheduled Referrals Name Type Priority Associated [...] Neutrophil Absolute 5.77 1.70 - 6.10 x10(3)/mcL [facility] Lymph % 19.9 % [facility] Lymphocytes Abs 1.7 0.9 - 3.2 x10(3)/[facility] Monocyte % 9.6 % [facility] Monocyte Abs 0.8 0.3 - 0.9 x10(3)/[facility] Eos % 3.2 % [facility] Eosinophils Abs 0.3 0.0 - 0.4 x10(3)/[facility] Basophil % 0.7 % [facility] Baso Absolute 0.1 0.0 - 0.1 x10(3)/[facility] Immature Gran % 0.30 % [facility] Comment: Immature granulocytes(IG's)percentage and absolute count will include metamyelocytes, myelocytes, and promyelocytes. Blood smears from CBCs yielding IG's will be scanned manually for concordance. If this scan disagrees with the automated IG or if promyelocytes are noted, a manual differential will be performed. Immature Gran Absolute 0.03 0.00 - 0.04 x10(3)/[facility] Blood specimen (specimen) 02/01/2018 3:41 PM EDT 02/01/2018 3:48 PM EDT Narrative Resulting Agency Comment Spec In Lab Breezy Dale MD HEMATOLOGY ORDERABL ES [facility] [place] [address] * Hemogram (02/01/2018 3:41 PM EDT) White Blood Cell 8.7 4.0 - 9.5 x10(3)/[facility] Red Blood Cell 5.16 4.58 - 5.54 x10(6)/[facility] Hemoglobin 15.7 13.7 - 16.5 gm/dL [facility] Hematocrit 45.4 40.5 - 48.5 % [facility] Mean Cell Volume 88.0 82.9 - 93.1 fL [facility] Mean Cell Hemoglobin 30.4 27.5 - 32.1 pg [facility] Mean Cell Hemoglobin Concentration 34.6 32.0 - 35.7 gm/dL [facility] Platelet 284 145 - 357 x10(3)/[facility] RDW Standard Deviation 44.6 36.0 - 45.0 [facility] RDW coefficient of variation 13.8 11.4 - 13.8 % [facility] Mean Platelet Volume 9.2 7.6 - 12.9 [facility] NRBC% auto 0.0 % [facility] NRBC Absolute 0.000 0.000 - 0.000 x10(3)/[facility] Blood specimen (specimen) 02/01/2018 3:41 PM EDT 02/01/2018 3:48 PM EDT Narrative Resulting Agency Comment Spec In Lab Breezy Dale MD HEMATOLOGY ORDERABL ES Performing Organization Address City/[facility] Co de Phone Number [facility] [place] [address] * (ABNORMAL) Sedimentation rate (02/01/2018 3:41 PM EDT) Sedimentation Rate Automated 25(H) 0 - 15 mm/hr [facility] Blood specimen (specimen) 02/01/2018 3:41 PM EDT 02/01/2018 3:48 PM EDT Narrative Resulting Agency Comment Spec In Lab Breezy Dale MD HEMATOLOGY ORDERABL ES Performing Organization Address City/[facility]/ZIP Co de Phone Number [facility] [place] [address] * (ABNORMAL) CRP, acute inflammation (02/01/2018 3:41 PM EDT) C-Reactive Protein 8.5(H) <=4.9 mg/L [facility] Blood specimen (specimen) 02/01/2018 3:41 PM EDT 02/01/2018 3:48 PM EDT Narrative Resulting Agency Comment Spec In Lab Breezy Dale MD CHEMISTRY ORDERABLE S [facility] [place] [address] documented in this encounter Visit Diagnoses Diagnosis Status post right knee replacement S/P R TKA 11/25/17 Dr. Dale Knee joint replacement by other means documented in this encounter Care Teams Plant Worker Relationship Specialty Start Date End Date Urbano Denis DO [facility] [address] [place] [address] PCP - General 09/03/12 03/17/22 Ruchi Valles RN Nurse Clinic Transplant Surgery 07/30/15 documented as of this encounter
--- OUTSIDE RECORDS SUMMARY | 2024-05-16 17:26 | XMS_ITS | Encounter Summary ---
Author Organization [facility] Address [facility] [place] [address] Care Team Providers Care Tumbler Plater Name Role Phone Urbano Denis DO Primary Care Provider Encounter Details Date Type Department Care Team (Latest Contact Info) Description 06/12/2018 2:52 PM EST - 06/12/2018 11:59 PM EST Hospital Encounter Radiology Library at [facility] [place] [address] Tal Eagle MD [facility] [place] [address] Discharge Disposition: Home Social History Tobacco Use [...] 11:00 AM EST Visit (TeleHealth) Cardiology at [address] [address] Byron Brown MD [facility] [place] [address] 07/14/2024 10:00 AM EST Hospital Encounter Non-Invasive [place] [address] Arrived documented as of this encounter Goals [...] & Pelvis (06/12/2018 2:52 PM EST) Narrative [facility] - 06/12/2018 2:52 PM EST This exam is for storage only and is auto-finalizing. Tal Eagle MD IMG FILM LIBRARY ORDERABLES Performing Organization Address City/State/[facility] Co de Phone Number [place], [place] documented in this encounter Visit Diagnoses Not on filedocumented in this encounter Care Teams Tumbler Plater Relationship Specialty Start Date End Date Urbano Denis DO [address] [place] [address] PCP - General 09/03/12 03/17/22 Ruchi Valles RN Nurse Clinic Transplant Surgery 07/30/15 documented as of this encounter
--- OUTSIDE RECORDS SUMMARY | 2024-05-16 17:26 | XMS_ITS | Encounter Summary ---
Author Organization [facility] [address] Care Team Providers Care Product Owner Name Role Phone AdeelUrbano toscano Primary Care Provider [phone] Encounter Details Date Type Department Care Team (Late st Contact Info) Description 12/17/2017 Refill [place] [phone] Sonia Mota RN S/P R TKA 11/25/17 [...] request: Cody Bolden Mailing address: [place] [address] Surgeon: Dr. Dale Case: right total knee [...] is requesting the prescription be sent to [facility] pharmacy and then have the medication mailed. Last appointment: 11/25/2017 Future appointment: 01/04/2018 Last narcotic query: 12/17/2017 documented in this encounter Plan of Treatment Upcoming Encounters Date Type Department Care Team (Late st Contact Info) Description 06/22/2024 11:00 AM EST TH Visit (TeleHealth) Cardiology at [address] [phone] Byron Brown MD [facility] [place] [place] [address] 07/14/2024 10:00 AM EST Hospital Encounter Non-Invasive [place] [address] Arrived documented as of this encounter Goals [...] means documented in this encounter Care Teams Product Owner Relationship Specialty Start Date End Date Urbano Denis DO [address] [place] [address] [address] [facility] 1 [place] [address] PCP - General 09/03/12 03/17/22 Hai STANLEY,Ruchi Nurse Clinic Transplant Surgery 07/30/15 documented as of this encounter
--- OUTSIDE RECORDS SUMMARY | 2024-05-16 17:26 | XMS_ITS | Encounter Summary ---
[place] [address] Care Team Providers Care Lumber Kiln Operator Name Role Phone AdeelUrbano boland Primary Care Provider Reason for Visit * Reason Onset Date Comments Medication Refill 06/07/2018 Encounter Details Date Type Department Care Team (Late st Contact Info) Description 06/07/2018 Refill [place] [address] Julia Farris RN Social History Tobacco Use [...] BID. She would like it filled at [facility] and mailed to them like they have for their other medications. Script sent and [facility] called to confirm shipping. documented in this encounter Plan of Treatment Upcoming Encounters Date Type Department Care Team (Late st Contact Info) Description 06/22/2024 11:00 AM EST TH Visit (TeleHealth) Cardiology at [address] [address] Byron Brown MD [facility] [place] [address] 07/14/2024 10:00 AM EST Hospital Encounter Non[place] [address] Arrived documented as of this [...] filedocumented in this encounter Care Teams Lumber Kiln Operator Relationship Specialty Start Date End Date Urbano Denis DO [address] [place] [address] PCP - General 09/03/12 03/17/22 Ruchi Valles RN Nurse Clinic Transplant Surgery 07/30/15 documented as of this encounter
--- OUTSIDE RECORDS SUMMARY | 2024-05-16 17:26 | XMS_ITS | Encounter Summary ---
Author Organization [facility] [place] [address] Care Team Providers Care Bottom Presser Name Role Phone AdeelUrbano boland Primary Care Provider [phone] Reason for Visit * Reason Comments Medication Refill Encounter Details Date Type Department Care Team (Late st Contact Info) Description 12/21/2017 Refill [place] [phone] Tal Eagle MD [facility] [place] [address] Social History Tobacco Use Types Packs/Day Years [...] EST TH Visit (TeleHealth) Cardiology at [address] [phone] Byron Brown MD [facility] [place] [address] 07/14/2024 10:00 AM EST Hospital Encounter Non-[place] [phone] Arrived documented as of this encounter Goals [...] on filedocumented in this encounter Care Teams Bottom Presser Relationship Specialty Start Date End Date Urbano Denis DO [address] [place] [address] [address] [facility] [place] [address] PCP - General 09/03/12 03/17/22 Ruchi Valles RN Nurse Clinic Transplant Surgery 07/30/15 documented as of this encounter
--- OUTSIDE RECORDS SUMMARY | 2024-05-16 17:26 | XMS_ITS | Encounter Summary ---
Author Organization [facility] [place] [address] Care Team Providers Care Improvement Spec Name Role Phone AdeelUrbano boland Primary Care Provider [phone] Reason for Visit * Reason Comments Medication Refill Encounter Details Date Type Department Care Team (Late st Contact Info) Description 12/11/2017 Refill Solid [place] [phone] Tal Eagle MD [facility] [place] [address] Social History Tobacco Use Types Packs/Day Years [...] EST TH Visit (TeleHealth) Cardiology at [address] [phone] Byron Brown MD [facility] [address] 07/14/2024 10:00 AM EST Hospital Encounter Non-Invasive [place] [phone] Arrived documented as of this encounter Goals [...] on filedocumented in this encounter Care Teams Improvement Spec Relationship Specialty Start Date End Date Urbano Denis DO [address] [place] [address] [address] [facility] 1 [place] [address] PCP - General 09/03/12 03/17/22 Ruchi Valles RN Nurse Clinic Transplant Surgery 07/30/15 documented as of this encounter
--- OUTSIDE RECORDS SUMMARY | 2024-05-16 17:26 | XMS_ITS | Encounter Summary ---
Author Organization [facility] Address [facility] [place] [address] Care Team Providers Care Dull Coat Mill Operator Name Role Phone AdeelUrbano boland Primary Care Provider [phone] Reason for Visit * Reason Comments Post Op R TKA Encounter Details Date Type Department Care Team (Late st Contact Info) Description 01/04/2018 1:30 PM EDT Office [place] [address] Franko Hartley PA [facility] DR [place] [address] S/P R TKA 11/25/17 Dr. Dale (Primary [...] subsidence, loosening, or periprosthetic complication. Questionnaire Responses: [facility] Surgical Postop Visit 01/04/2018 PROMIS-10 General Health [...] None Satisfaction with Treatment Somewhat satisfied Orthopeadics [facility] Response 01/04/2018 KOOS JR Scores 39.63 Spine [facility] Response 01/04/2018 KOOS JR Scores 39.63 ASSESSMENT/PLAN: [...] and they will get them completed at [facility]. They also request a repeat pain script. [...] AM EST Visit (TeleHealth) Cardiology at [address] [address] Bryon Brown MD [facility] [place] [address] 07/14/2024 10:00 AM EST Hospital Encounter Non-Invasive [place] [address] Arrived documented as of this encounter Goals [...] means documented in this encounter Care Teams Dull Coat Mill Operator Relationship Specialty Start Date End Date Urbano Denis DO [address] [place] [address] PCP - General 09/03/12 03/17/22 Ruchi Valles RN Nurse Clinic Transplant Surgery 07/30/15 documented as of this encounter
--- OUTSIDE RECORDS SUMMARY | 2024-05-16 17:26 | XMS_ITS | Encounter Summary ---
Author Organization [facility] Address [facility] [place] [address] Care Team Providers Care Dairy Technologist Name Role Phone AdeelUrbano Primary Care Provider [phone] Reason for Visit * Reason Comments Follow Up Surgery right TKA Encounter Details Date Type Department Care Team (Late st Contact Info) Description 03/01/2018 2:10 PM EDT Office [place] [address] Breezy Dale MD [facility] [place] [address] S/P R TKA 11/25/17 Dr. Dale Social [...] MD, MS Chief, Division of Adult Reconstructive Central Supply ManagerContinuous Weld Pipe Mill Supervisor of Orthopaedics Department of Orthopaedics [facility] [address] [email or web address] * Anatoly Richards PA - 03/01/2018 2:10 [...] Sensory: Normal Quadriceps Strength: 4 Questionnaire Responses: [facility] Surgical Postop Visit 03/01/2018 PROMIS-10 General Health [...] Choose Same Treatment Again Completely uncertain Orthopeadics [facility] Response 03/01/2018 KOOS JR Scores 63.78 Spine [facility] Response 03/01/2018 KOOS JR Scores 63.78 ASSESSMENT/PLAN: [...] AM EST Visit (TeleHealth) Cardiology at [address] [phone] Byron Brown MD [facility] [place] [address] 07/14/2024 10:00 AM EST Hospital Encounter Non-[place] [phone] Arrived documented as of this encounter Goals [...] means documented in this encounter Care Teams Dairy Technologist Relationship Specialty Start Date End Date Urbano Denis DO [address] [place] [address] [address] [place] [address] PCP - General 09/03/12 03/17/22 Ruchi Valles RN Nurse Clinic Transplant Surgery 07/30/15 documented as of this encounter
--- OUTSIDE RECORDS SUMMARY | 2024-05-16 17:26 | XMS_ITS | Encounter Summary ---
Author Organization [facility] Address [facility] [place] [address] Care Team Providers Care Dairy Farmworker Name Role Phone Adeel Urbano KIRBY Primary Care Provider Encounter Details Date Type Department Care Team (Latest Contact Info) Description 01/04/2018 11:58 AM EDT - 01/04/2018 11:59 PM EDT Hospital Encounter XRay at [address] [place] [place] [address] Breezy Dale MD [facility] [place] [address] Pain of right lower extremity; Debility; Primary [...] 11:00 AM EST Visit (TeleHealth) Cardiology at [address] [address] Byron Brown MD [facility] [place] [address] 07/14/2024 10:00 AM EST Hospital Encounter Non-Invasive [place] [address] Arrived documented as of this encounter Goals [...] * XR Knee Standing Alignment AP Lat [place] Right (01/04/2018 12:15 PM EDT) Anatomical Region [...] leg documented in this encounter Care Teams Dairy Farmworker Relationship Specialty Start Date End Date Urbano Denis DO [address] [place] [address] PCP - General 09/03/12 03/17/22 Ruchi Valles RN Nurse Clinic Transplant Surgery 07/30/15 documented as of this encounter
--- OUTSIDE RECORDS SUMMARY | 2024-05-16 17:27 | XMS_ITS | Encounter Summary ---
Author Organization [facility] Address [place] [address] Care Team Providers Care Productivity Engineer Name Role Phone AdeelUrbano Primary Care Provider Reason for Visit * Reason Comments Knee Pain right Encounter Details Date Type Department Care Team (Latest Contact Info) Description 11/19/2017 12:10 PM EDT Office [place] [address] Breezy Arauz MD [facility] [place] [address] Primary osteoarthritis of right knee; Chronic pain [...] 1.39). Blood Type: AB Pos Questionnaire Response [facility] Surgical Preop Visit 11/19/2017 PROMIS-10 General Health [...] evaluated by Dr. [place] Stafford, our Orthopaedic adjunct professor, to help with perioperative optimization and he [...] MD, MS Chief, Division of Adult Reconstructive Real Estate Services AdministratorStudent Development Advisor of Orthopaedics Department of Orthopaedics [place] [phone] [email or web address] documented in this encounter Plan of Treatment Upcoming Encounters Date Type Department Care Team (Late st Contact Info) Description 06/22/2024 11:00 AM EST TH Visit (TeleHealth) Cardiology at [address] [place] [address] Byron Brown MD [facility] [place] [address] 07/14/2024 10:00 AM EST Hospital Encounter Non-[place] [address] Arrived documented as of this encounter Goals Goal Patient Goal Type Associated Problems Recent Progress Patient-Stated? Author DH Eagle Medication Compliance and Understanding Patient Facing Action [...] knee documented in this encounter Care Teams Productivity Engineer Relationship Specialty Start Date End Date Urbano Denis DO [address] [place] [address] 1 [place] [address] PCP - General 09/03/12 03/17/22 Ruchi Valles RN Nurse Clinic Transplant Surgery 07/30/15 documented as of this encounter
--- OUTSIDE RECORDS SUMMARY | 2024-05-16 17:27 | XMS_ITS | Encounter Summary ---
Author Organization [facility] [place] [address] Care Team Providers Care Optical Brightener Maker Helper Name Role Phone Urbano Denis DO Primary Care Provider Encounter Details Date Type Department Care Team (Latest Contact Info) Description 11/04/2017 12:20 PM EDT Laboratory [place] [address] Pain of right lower extremity; [...] EST TH Visit (TeleHealth) Cardiology at [address] [address] Byron Brown MD [facility] [place] [address] 07/14/2024 10:00 AM EST Hospital Encounter Non-[place] [address] Arrived documented as of this [...] 12:53 PM EDT) Neutrophil % 63.8 % [facility] Neutrophil Absolute 6.24(H) 1.70 - 6.10 x10(3)/mc L [facility] Lymph % 24.1 % [facility] Lymphocytes Abs 2.4 0.9 - 3.2 x10(3)/mc L [facility] Monocyte % 7.3 % [facility] Monocyte Abs 0.7 0.3 - 0.9 x10(3)/mc L [facility] Eos % 3.4 % [facility] Eosinophils Abs 0.3 0.0 - 0.4 x10(3)/[facility] Basophil % 0.8 % [facility] Baso Absolute 0.1 0.0 - 0.1 x10(3)/[facility] LABORATORY Immature Gran % 0.60 % [facility] Comment: Immature granulocytes(IG's)percentage and absolute count will include metamyelocytes, myelocytes, and promyelocytes. Blood smears from CBCs yielding IG's will be scanned manually for concordance. If this scan disagrees with the automated IG or if promyelocytes are noted, a manual differential will be performed. Immature Gran Absolute 0.06(H) 0.00 - 0.04 x10(3)/[facility] LAB[facility]ORY Blood specimen (specimen) 11/04/2017 12:53 PM EDT 11/04/2017 12:56 PM EDT Narrative Resulting Agency Comment Spec In Lab Breezy Dale MD HEMATOLOGY ORDERABL ES [facility] [place] [address] * (ABNORMAL) Hemogram (11/04/2017 12:53 PM EDT) White Blood Cell 9.8(H) 4.0 - 9.5 x10(3)/[facility] LAB[facility] Red Blood Cell 5.16 4.58 - 5.54 x10(6)/[facility] Hemoglobin 15.7 13.7 - 16.5 gm/dL [facility] Hematocrit 45.1 40.5 - 48.5 % [facility] Mean Cell Volume 87.4 82.9 - 93.1 fL [facility] Mean Cell Hemoglobin 30.4 27.5 - 32.1 pg [facility] Mean Cell Hemoglobin Concentration 34.8 32.0 - 35.7 gm/dL [facility] Platelet 272 145 - 357 x10(3)/mc L [facility] RDW Standard Deviation 42.3 36.0 - 45.0 [facility] RDW coefficient of variation 13.2 11.4 - 13.8 % [facility] Mean Platelet Volume 9.5 7.6 - 12.9 [facility]ORY NRBC% auto 0.0 % [facility] NRBC Absolute 0.000 0.000 - 0.000 x10(3)/mc L [facility] Blood specimen (specimen) 11/04/2017 12:53 PM EDT 11/04/2017 12:56 PM EDT Narrative Resulting Agency Comment Spec In Lab Breezy Dale MD HEMATOLOGY ORDERABL ES Performing Organization Address [facility] de Phone Number [facility] [place] [address] * APTT (11/04/2017 12:53 PM EDT) Partial Thromboplastin Time 30 25 - 37 sec [facility] MD HEMATOLOGY ORDERABL ES Performing Organization Address [facility] Co de Phone Number [facility] [place] [address] * Prothrombin Time (11/04/2017 12:53 PM EDT) Prothrombin Time 11.9 9.4 - 12.5 sec [facility] [...] Lab Breezy Dale MD HEMATOLOGY ORDERABL ES [facility] [place] [address] * (ABNORMAL) Basic Metabolic Panel (non-fasting) (11/04/2017 12:53 PM EDT) Glucose 129 65 - 199 mg/dL [facility] Comment:Diabetes: >=200 mg/d L plus symptoms Blood Urea Nitrogen 21(H) 10 - 20 mg/dL [facility] Creatinine 1.39 0.80 - 1.50 mg/dL [facility] Sodium 137 135 - 145 mmol/L [facility] Potassium 3.8 3.5 - 5.0 mmol/L [facility] [...] [facility] Anion Gap 14 5 - 15 mmol/L [facility] Calcium 9.3 8.5 - 10.5 mg/dL [facility] Est Glomerular Filtration Rate 51(L) >=60 [facility] Comment: The reported eGFR should be multiplied by 1.2 for patients. The MDRD is not an appropriate measure of renal function for patients with body mass extremes or in patients with acute kidney failure. http://BiiCode.com/DHnkdep http://[employer]DHMCnkf Blood specimen (specimen) 11/04/2017 12:53 PM EDT 11/04/2017 12:56 PM EDT Narrative Resulting Agency Comment Spec In Lab Breezy Dale MD CHEMISTRY ORDERABLE S [facility] [place] [address] documented in this encounter Visit Diagnoses Diagnosis Pain of right lower extremity Debility Debility, unspecified Primary osteoarthritis of right knee Primary localized osteoarthrosis, lower leg documented in this encounter Care Teams Optical Brightener Maker Helper Relationship Specialty Start Date End Date Urbano Denis DO [address] [place] [address] PCP - General 09/03/12 03/17/22 Ruchi Valles RN Nurse Clinic Transplant Surgery 07/30/15 documented as of this encounter
--- OUTSIDE RECORDS SUMMARY | 2024-05-16 17:27 | XMS_ITS | Encounter Summary ---
Author Organization [facility] [place] [address] Care Team Providers Care Stamp Redemption Clerk Name Role Phone AdeelUrbano toscano Primary Care Provider Encounter Details Date Type Department Care Team (Late st Contact Info) Description 10/05/2017 Orders [place] [phone] Breezy Dale MD [facility] [place]OP[place]ED[place] [address] Right knee pain, unspecified chronicity Social History [...] st Contact Info) Description 06/22/2024 11:00 AM [facility] Visit (TeleHealth) Cardiology at [address] [phone] Byron Brown MD [facility] [place] [address] 07/14/2024 10:00 AM EST Hospital Encounter Non[place] [address] Arrived documented as of this encounter Goals [...] chronicity documented in this encounter Care Teams Stamp Redemption Clerk Relationship Specialty Start Date End Date Urbano Denis DO [address] [place] [address] [address] [facility] [address] [place] [address] PCP - General 09/03/12 03/17/22 Ruchi Valles RN Nurse Clinic Transplant Surgery 07/30/15 documented as of this encounter
--- OUTSIDE RECORDS SUMMARY | 2024-05-16 17:27 | XMS_ITS | Encounter Summary ---
Author Organization [facility] [place] [address] Care Team Providers Care Marine Scientist Name Role Phone AdeelUrbano toscano Primary Care Provider + [phone] Reason for Referral * Consultation (Routine) - Specialty Diagnoses / Procedures Referred By Humberto flor Referred To Contact Orthopaedics Diagnoses Osteoarthritis of right knee, unspecified osteoarthritis type Tal Eagle MD [facility] [address] [place] [address] Breezy Dale MD [facility] DR ORTHOPAEDIC [place] [address] Referral ID Status Reason Start Date Expiration Date V isits Requested Visits Authorized [id number] Consult, Test & Treat 09/09/2017 09/09/2018 10 10 Reason for Visit * Reason Comments Kidney Transplant Follow-up Immunotherapy Encounter Details Date Type Department Care Team (Latest Contact Info) Description 09/09/2017 10:40 AM EST Office Visit [place] [address] Tal Eagle MD [facility] TR[place] [address] 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 Date: 09/09/2017 [...] for diabetics, every [address] kidney ultrasound looking for renal cell CA, [...] from 09/09/2017 in Solid Organ Transplant at [place] Weight 104.1 kg (229 lb 6.4 oz) [...] UA Latest Ref Range: Clear Clear Spec [place] UA Latest Ref Range: 1.002 - 1.030 [...] treatment -ID following ?? RTC 12 months, [id number] labs documented in this encounter Plan of Treatment Upcoming Encounters Date Type Department Care Team (Late st Contact Info) Description 06/22/2024 11:00 AM EST TH Visit (TeleHealth) Cardiology at [address] [phone] Byron Brown MD [facility] CARDIOLOGY [place] [id number] 07/14/2024 10:00 AM EST Hospital Encounter Non-Invasive Cardiology Lab [facility] [place] [address] Arrived Scheduled Referrals Name Type Priority Associated Diagnoses Orde r Schedule Referral to Orthopaedics Outpatient Referral Routine Kidney replaced by transplant shelter current use of immunosuppressive drug Osteoarthritis of [...] HOSPITAL LABORATORY Leukocytes, Urine Dipstick Negative Negative [facility]ORY Appearance, Urine Dipstick Clear Clear [facility] Specific [place] Urine Automated 1.016 1.002 - 1.030 [facility] Color, Urine Dipstick Yellow Yellow [facility] Reflex to Culture No [facility] Urine specimen obtained by clean catch procedure (specimen) 09/09/2017 10:53 AM EST 09/09/2017 10:58 AM EST Narrative Resulting Agency Comment Spec In Lab Tal Eagle MD URINE ORDERABLES Performing Organization Address City/[facility] Co de Phone Number [facility] [place] [address] * (ABNORMAL) Protein/Creatinine Ratio, urine (09/09/2017 10:53 [...] URINE ORDERABLES Performing Organization Address City/[facility]/ZIP Co de Phone Number [facility] [place] [address] * Phosphorus, urine, random (09/09/2017 10:53 AM EST) Phosphorus, Urine 49.2 mg/dL [facility] Urine specimen (specimen) 09/09/2017 10:53 AM EST 09/09/2017 10:58 AM EST Narrative Resulting Agency Comment Spec In Lab Tal Eagle MD URINE ORDERABLES Performing Organization Address City/[facility]/ZIP Co de Phone Number [facility] [place] [address] * Calcium Creatinine Ratio, random urine (09/09/2017 [...] URINE ORDERABLES Performing Organization Address City/[facility]/ZIP Co de Phone Number [facility] [place] [address] * Gold Tube HOLD (09/09/2017 10:03 AM EST) Pathologist [facility] Gold Hold Sample in lab. [facility] Blood specimen (specimen) 09/09/2017 10:03 AM EST 09/09/2017 10:09 AM EST Tal Eagle MD CHEMISTRY ORDERAB LES Performing Organization Address [facility] Co de Phone Number [facility] [place] [address] * Lavender Tube HOLD (09/09/2017 10:03 AM EST) [facility] Lavender Hold Sample in lab. [facility] Blood specimen (specimen) 09/09/2017 10:03 AM EST 09/09/2017 10:09 AM EST Tal Egale MD HEMATOLOGY ORDERA BLES Performing Organization Address City/[facility]/ZIP Co de Phone Number [facility] [place] [address] * (ABNORMAL) Vitamin D, 25-Hydroxy (09/09/2017 10:03 [...] be considered to be insufficient or deficient. http://Myrio/nkf-guidelines http://Myrio/nejm-VitD The [employer]S iSYS Vitamin D Immunoassay detects both 25-OH Vitamin D2 and 25-OH Vitamin D3, but only a total Vitamin D concentration is reported. Blood specimen (specimen) 09/09/2017 10:03 AM EST 09/09/2017 2:08 PM EST Narrative Resulting Agency Comment Spec In Lab Tal Eagle MD CHEMISTRY ORDERAB LES Performing Organization Address [facility]/ZIP Co de Phone Number [facility] [place] [address] * Uric acid (09/09/2017 10:03 AM EST) Uric Acid 7.3 3.5 - 8.5 mg/dL [facility] Blood specimen (specimen) 09/09/2017 10:03 AM EST 09/09/2017 10:09 AM EST Narrative Resulting Agency Comment Spec In Lab Tal Eagle MD CHEMISTRY ORDERAB LES Performing Organization Address City/[facility]/ZIP Co de Phone Number [facility] [place] [address] * Tacrolimus level (09/09/2017 10:03 AM EST) Tacrolimus 5.5 ng/mL [facility] Comment: Trough therapeutic: ??5-15 ng/mL Performed by ultra-performance liquid chromatography tandem mass spectrometry (UPLCMS/MS). This test was developed and its performance characteristics determined by [facility]. It has not been [...] MD CHEMISTRY ORDERAB LES Performing Organization Address [facility] Co de Phone Number [facility] [place] [address] * Reticulocyte Count (09/09/2017 10:03 AM EST) [...] MD HEMATOLOGY ORDERA BLES Performing Organization Address [facility] Co de Phone Number [facility] [place] [address] * PTH (09/09/2017 10:03 AM EST) Parathyroid Hormone 57 15 - 65 pg/mL [facility] Blood specimen (specimen) 09/09/2017 10:03 AM EST 09/09/2017 10:09 AM EST Narrative Resulting Agency Comment Spec In Lab Tal Eagle MD CHEMISTRY ORDERAB LES Performing Organization Address [facility] Co de Phone Number [facility] [place] [address] * Phosphorus (09/09/2017 10:03 AM EST) Phosphorus 2.5 2.5 - 4.5 mg/dL [facility] Blood specimen (specimen) 09/09/2017 10:03 AM EST 09/09/2017 10:09 AM EST Narrative Resulting Agency Comment Spec In Lab Tal Eagle MD CHEMISTRY ORDERAB LES Performing Organization Address [facility]/ZIP Co de Phone Number [facility] [place] [address] * BKV Quant Blood (09/09/2017 10:03 AM EST) BKV Blood Result Not Detected [facility] BKV Blood Interp BK Virus Plasma Result Interpretation Result: BK Virus not detected Specimen type: plasma Assay Range: 2.83-8.83 log copies/mL (6.8x10^2 - 6.8x10^8 copies/mL) Methods: Quantitative real-time polymerase chain reaction (PCR) of viral DNA isolated from plasma was performed using [employer] (formerly, [employer]) BKV analyte-specific reagents and the [employer] Intellect 7500 FAST Real-Time PCR System. In addition, [...] Genomics and Advanced Technology (CGAT) Laboratory at [facility]. It has not been cleared or approved [...] MD MOLECULAR ORDERAB LES Performing Organization Address City/[facility]/ZIP Co de Phone Number [facility] [place] [address] * (ABNORMAL) Magnesium (09/09/2017 10:03 AM EST) Magnesium 0.68(L) 0.69 - 1.07 mmol/L [facility] Blood specimen (specimen) 09/09/2017 10:03 AM EST 09/09/2017 10:09 AM EST Narrative Resulting Agency Comment Spec In Lab Tal Eagle MD CHEMISTRY ORDERAB LES [facility] [place] [address] * Lipid Panel (09/09/2017 10:03 AM EST) Cholesterol, Total 138 mg/dL [facility] Comment: Lower Risk: <200 mg/dL Average Risk: 200-239 mg/dL Higher Risk: >zb=414 mg/dL Triglyceride 178 mg/dL [facility] Comment: Average Risk/Lower Risk: <150 mg/dL Borderline High Risk: 150-199 mg/dL High Risk: 200-499 mg/dL Very High Risk: >es=205 mg/dL HDL Cholesterol 33 mg/dL [facility] Comment: Males: ?? Higher Risk: <40 mg/dL Females: ?? HIgher Risk: <50 mg/dL LDL Cholesterol 69 mg/dL [facility] Comment: Lowest Risk: <100 mg/dL Lower Risk: 100-129 mg/dL Borderline High Risk: 130-159 mg/dL High Risk: 160-189 mg/dL Very High Risk: >vj=753 mg/dL Cholesterol/HDL Ratio 4.2 ratio [facility] Lipid Interpretation See Note [facility] Comment: Lipid management should be guided by a patient? s ASCVD risk, goals and preferences. ACC/AHA Guidelines recommend high intensity statin if clinical ASCVD or LDL greater than or equal to 190 mg/dL. http://OurStoryurl.com/VXX-ZJM-Bpxlxogwy Adults aged 40-75 with LDL 70-189 mg/dL should have their 10 year ASCVD risk estimated with the ACC/AHA ASCVD risk shop estimator http://tools.acc.org/QVXOZ-Tuwx-Fvnxathtq/ Statin should be discussed if risk greater [...] CHEMISTRY ORDERAB LES [facility] [place] [address] * Hemoglobin A1c (09/09/2017 10:03 AM EST) [...] Mellitus, Diabetes Care 2013; 36: Suppl. 1, S67-49 Estimated Average Glucose 100 mg/dL [facility] [...] into estimated average glucose values. ??Diabetes Care 2008:31(8):5671-6089. Blood specimen (specimen) 09/09/2017 10:03 AM EST 09/09/2017 10:09 AM EST Narrative Resulting Agency Comment Spec In Lab Tal Eagle MD CHEMISTRY ORDERAB LES [facility] [place] [address] * (ABNORMAL) CMP w/fasting Glucose (09/09/2017 10:03 [...] of Diabetes Mellitus, Position Statement from the [place] [employer]. ??Diabetes Care, Volume 33, Supplement [...] or in patients with acute kidney failure. http://BrightSun.TurnStar/DHnkdep http://BrightSun.TurnStar/DHMCnkf Blood specimen (specimen) 09/09/2017 10:03 AM EST 09/09/2017 10:09 AM EST Narrative Resulting Agency Comment Spec In Lab Tal Eagle MD CHEMISTRY ORDERAB LES [facility] [place] [address] * 1,25-dihydroxycholecalciferol (09/09/2017 10:03 AM EST) Vit D 1,25 Dihydroxy (NOVEMBER) 59 18 - 64 pg/mL [facility] Comment: ADDITIONAL INFORMATION This test was developed and its performance characteristics determined by [facility] in a manner consistent with CLIA requirements. This test has not been cleared or approved by the U.S. Food and Drug Administration. Test Performed by: [facility] - [facility] [address] [place] [address] Blood specimen (specimen) 09/09/2017 10:03 AM EST 09/09/2017 12:15 PM EST Narrative Resulting Agency Comment Spec In Lab Tal Eagle MD LAB SEND OUT ORDBhargav RABLES [facility] [place] [address] * Uric acid, urine, 24 hour (09/09/2017 6:15 AM EST) Pathologist [facility] U24 Uric Conc 29.0 mg/dL [facility] Uric Acid, 24 Hour Urine 0.41 0.25 - 0.80 gm/24hr [facility] Urine specimen (specimen) 09/09/2017 6:15 AM EST 09/09/2017 11:04 AM EST Narrative Resulting Agency Comment Spec In Lab Tal Eagle MD URINE ORDERABLES [facility] [place] [address] * (ABNORMAL) Protein, urine, 24 hour (09/09/2017 6:15 AM EST) Protein Concentration, U24 56 <=80 mg/dL [facility] Protein, 24 Hour Urine 0.78(H) <=0.15 gm/24hr [facility] Urine specimen (specimen) 09/09/2017 6:15 AM EST 09/09/2017 11:04 AM EST Narrative Resulting Agency Comment Spec In Lab Tal Eagle MD URINE ORDERABLES Performing Organization Address [facility] Co de Phone Number [facility] [place] [address] * Phosphorus, urine, 24 hour (09/09/2017 6:15 AM EST) Phosphorus Concentration, U24 66.0 mg/dL [facility] Phosphorus, 24 Hour Urine 0.9 0.4 - 1.3 gm/24hr [facility] Urine specimen (specimen) 09/09/2017 6:15 AM EST 09/09/2017 11:04 AM EST Narrative Resulting Agency Comment Spec In Lab Tal Eagle MD URINE ORDERABLES Performing Organization Address [facility] Co de Phone Number [facility] [place] [address] * Creatinine, urine, 24 hour (09/09/2017 6:15 AM EST) Cre Concentration, U24 107 mg/dL [facility] Creatinine, 24 Hour Urine 1.50 0.80 - 1.90 gm/24hr [facility] Urine specimen (specimen) 09/09/2017 6:15 AM EST 09/09/2017 11:04 AM EST Narrative Resulting Agency Comment Spec In Lab Tal Eagle MD URINE ORDERABLES Performing Organization Address [facility] Co de Phone Number [facility] [place] [address] * (ABNORMAL) Creatinine Clearance, urine, 24 hour [...] URINE ORDERABLES Performing Organization Address [facility] de Phone Number [facility] [place] [address] * Calcium, urine, 24 hour (09/09/2017 6:15 [...] URINE ORDERABLES Performing Organization Address [facility] de Phone Number [facility] [place] [address] documented in this encounter Visit Diagnoses Diagnosis Kidney replaced by transplant shelter current use of immunosuppressive drug Vitamin D deficiency Unspecified vitamin D deficiency Osteoarthritis of right knee, unspecified osteoarthritis type Hypertension secondary to other renal disorders Aftercare following organ transplant Immunosuppression Unspecified disorder of immune mechanism documented in this encounter Care Teams Marine Scientist Relationship Specialty Start Date End Date Urbano Denis DO [address] [place] [address] PCP - General 09/03/12 03/17/22 Ruchi Valles RN Nurse Clinic Transplant Surgery 07/30/15 documented as of this encounter
--- OUTSIDE RECORDS SUMMARY | 2024-05-16 17:27 | XMS_ITS | Encounter Summary ---
Author Organization [facility] [place] [address] Care Team Providers Care Solution Maker Name Role Phone Urbano Denis DO Primary Care Provider [phone] Encounter Details Date Type Department Care Team (Latest Contact Info) Description 09/09/2017 9:40 AM EST Laboratory Appointment Lab [address] [place] [address] Kidney replaced by transplant; halfway current use of immunosuppressive drug ; Vitamin [...] EST TH Visit (TeleHealth) Cardiology at [address] [address] Byron Brown MD [facility] [place] [address] 07/14/2024 10:00 AM EST Hospital Encounter Non-[place] [address] Arrived documented as of this encounter Goals [...] HEMOGLOBIN A1C STAT 09/09/2017 10:03 AM EST halfway current use of immunosuppressive drug Kidney replaced [...] MD URINE ORDERABLES [facility] [place] [address] * (ABNORMAL) Urinalysis with reflex Culture (09/09/2017 [...] HOSPITAL LABORATORY Leukocytes, Urine Dipstick Negative Negative [facility]ATORY Appearance, Urine Dipstick Clear Clear [facility] Specific [place] Urine Automated 1.016 1.002 - 1.030 [facility] Color, Urine Dipstick Yellow Yellow [facility] Reflex to Culture No [facility] Urine specimen obtained by clean catch procedure (specimen) 09/09/2017 10:53 AM EST 09/09/2017 10:58 AM EST Narrative Resulting Agency Comment Spec In Lab Tal Eagle MD URINE ORDERABLES Performing Organization Address City/[facility]/ZIP Co de Phone Number [facility] [place] [address] * (ABNORMAL) Protein/Creatinine Ratio, urine (09/09/2017 10:53 AM EST) Creatinine, Urine 84 mg/dL [facility] Protein, Urine 62(H) 0 - 12 mg/dL [facility] Protein / Creatinine Ratio, Urine 0.7 ratio [facility] Urine specimen (specimen) 09/09/2017 10:53 AM EST 09/09/2017 10:58 AM EST Narrative Resulting Agency Comment Spec In Lab Tal Eagle MD URINE ORDERABLES Performing Organization Address [facility]/ZIP Co de Phone Number [facility] [place] [address] * Phosphorus, urine, random (09/09/2017 10:53 AM EST) Phosphorus, Urine 49.2 mg/dL [facility] Urine specimen (specimen) 09/09/2017 10:53 AM EST 09/09/2017 10:58 AM EST Narrative Resulting Agency Comment Spec In Lab Tal Eagle MD URINE ORDERABLES Performing Organization Address City/[facility]/ZIP Co de Phone Number [facility] [place] [address] * Calcium Creatinine Ratio, random urine (09/09/2017 10:53 AM EST) Calcium, Urine 7.9 mg/dL [facility] Creatinine, Urine 84 mg/dL [facility] Calcium / Creatinine Ratio, Urine 0.09 ratio [facility] Urine specimen (specimen) 09/09/2017 10:53 AM EST 09/09/2017 10:58 AM EST Narrative Resulting Agency Comment Spec In Lab Tal Eagle MD URINE ORDERABLES [facility] [place] [address] * (ABNORMAL) Differential, Automated (09/09/2017 10:03 AM EST) Neutrophil % 64.2 % [facility] Neutrophil Absolute 5.05 1.70 - 6.10 x10(3)/mc L [facility] Lymph % 24.2 % [facility] Lymphocytes Abs 1.9 0.9 - 3.2 x10(3)/mc L [facility] Monocyte % 7.1 % [facility] Monocyte Abs 0.6 0.3 - 0.9 x10(3)/mc L [facility] Eos % 2.7 % [facility] Eosinophils Abs 0.2 0.0 - 0.4 x10(3)/mc L [facility] Basophil % 1.0 % [facility] Baso Absolute 0.1 0.0 - 0.1 x10(3)/mc L [facility] Immature Gran % 0.80 % [facility] Comment: Immature granulocytes(IG's)percentage and absolute count will include metamyelocytes, myelocytes, and promyelocytes. Blood smears from CBCs yielding IG's will be scanned manually for concordance. If this scan disagrees with the automated IG or if promyelocytes are noted, a manual differential will be performed. Immature Gran Absolute 0.06(H) 0.00 - 0.04 x10(3)/mc L [facility] Blood specimen (specimen) 09/09/2017 10:03 AM EST 09/09/2017 10:09 AM EST Narrative Resulting Agency Comment Spec In Lab Tal Eagle MD HEMATOLOGY ORDERA BLES [facility] [place] [address] * Hemogram (09/09/2017 10:03 AM EST) [facility] White Blood Cell 7.9 4.0 - 9.5 x10(3)/[facility] LABORATORY Red Blood Cell 5.10 4.58 - 5.54 x10(6)/[facility] LABORATORY Hemoglobin 15.8 13.7 - 16.5 gm/dL [facility] Hematocrit 45.2 40.5 - 48.5 % [facility] Mean Cell Volume 88.6 82.9 - 93.1 fL [facility] Mean Cell Hemoglobin 31.0 27.5 - 32.1 pg [facility] Mean Cell Hemoglobin Concentration 35.0 32.0 - 35.7 gm/dL [facility] Platelet 304 145 - 357 x10(3)/[facility] LABORATORY RDW Standard Deviation 41.6 36.0 - 45.0 [facility] LABORATORY RDW coefficient of variation 12.8 11.4 - 13.8 % [facility] Mean Platelet Volume 8.9 7.6 - 12.9 [facility] LABORATORY NRBC% auto 0.0 % [facility] NRBC Absolute 0.000 0.000 - 0.000 x10(3)/[facility] LABORATORY Blood specimen (specimen) 09/09/2017 10:03 AM EST 09/09/2017 10:09 AM EST Narrative Resulting Agency Comment Spec In Lab Tal Eagle MD HEMATOLOGY ORDERA BLES [facility] [place] [address] * Gold Tube HOLD (09/09/2017 10:03 AM EST) Gold Hold Sample in lab. [facility] Blood specimen (specimen) 09/09/2017 10:03 AM EST 09/09/2017 10:09 AM EST Tal Eagle MD CHEMISTRY ORDERAB LES Performing Organization Address [facility] Co de Phone Number [facility] [place] [address] * Lavender Tube HOLD (09/09/2017 10:03 AM EST) Lavender Hold Sample in lab. [facility] Blood specimen (specimen) 09/09/2017 10:03 AM EST 09/09/2017 10:09 AM EST Tal Eagle MD HEMATOLOGY ORDERA BLES Performing Organization Address [facility] de Phone Number [facility] [place] [address] * (ABNORMAL) Vitamin D, 25-Hydroxy (09/09/2017 10:03 [...] be considered to be insufficient or deficient. http://SSEV.SquareKey/nkf-guidelines http://SSEV.com/nejm-VitD The [employer]S iSYS Vitamin D Immunoassay detects both 25-OH Vitamin D2 and 25-OH Vitamin D3, but only a total Vitamin D concentration is reported. Blood specimen (specimen) 09/09/2017 10:03 AM EST 09/09/2017 2:08 PM EST Narrative Resulting Agency Comment Spec In Lab Tal Eagle MD CHEMISTRY ORDERAB LES Performing Organization Address City/[facility] Co de Phone Number [facility] [place] [address] * Uric acid (09/09/2017 10:03 AM EST) Uric Acid 7.3 3.5 - 8.5 mg/dL [facility] Blood specimen (specimen) 09/09/2017 10:03 AM EST 09/09/2017 10:09 AM EST Narrative Resulting Agency Comment Spec In Lab Tal Eagle MD CHEMISTRY ORDERAB LES Performing Organization Address [facility] de Phone Number [facility] [place] [address] * Tacrolimus level (09/09/2017 10:03 AM EST) Pathologist [facility] Tacrolimus 5.5 ng/mL [facility] Comment: Trough [...] CHEMISTRY ORDERAB LES Performing Organization Address [facility] Co de Phone Number [facility] [place] [address] * Reticulocyte Count (09/09/2017 10:03 AM EST) Reticulocyte % 2.2 0.7 - 2.6 % [facility] Retic Abs # 0.110 0.030 - 0.120 x10(6)/mcL [facility] Immature Retic% 13.1 0.0 - 15.6 % [facility] Reticulated Hgb 35.4 31.3 - 40.2 pg [facility] Blood specimen (specimen) 09/09/2017 10:03 AM EST 09/09/2017 10:09 AM EST Narrative Resulting Agency Comment Spec In Lab Tal Eagle MD HEMATOLOGY ORDERA BLES Performing Organization Address [facility] Co de Phone Number [facility] [place] [address] * PTH (09/09/2017 10:03 AM EST) Parathyroid Hormone 57 15 - 65 pg/mL [facility] Blood specimen (specimen) 09/09/2017 10:03 AM EST 09/09/2017 10:09 AM EST Narrative Resulting Agency Comment Spec In Lab Tal Eagle MD CHEMISTRY ORDERAB LES Performing Organization Address [facility] Co de Phone Number [facility] [place] [address] * Phosphorus (09/09/2017 10:03 AM EST) Phosphorus 2.5 2.5 - 4.5 mg/dL [facility] Blood specimen (specimen) 09/09/2017 10:03 AM EST 09/09/2017 10:09 AM EST Narrative Resulting Agency Comment Spec In Lab Tal Egale MD CHEMISTRY ORDERAB LES Performing Organization Address [facility] Co de Phone Number [facility] [place] [address] * BKV Quant Blood (09/09/2017 10:03 AM EST) BKV Blood Result Not Detected [facility] BKV Blood Interp BK Virus Plasma Result Interpretation Result: BK Virus not detected Specimen type: plasma Assay Range: 2.83-8.83 log copies/mL (6.8x10^2 - 6.8x10^8 copies/mL) Methods: Quantitative real-time polymerase chain reaction (PCR) of viral DNA isolated from plasma was performed using [employer] (formerly, [employer]) BKV analyte-specific reagents and the Applied Biosystems [...] [facility] (CGAT) Laboratory at [facility]. It has not been cleared or approved by the FDA. The laboratory is regulated under CLIA as qualified to perform high-complexity testing. This test is used for clinical purposes. It should not be regarded as investigational or for research. [facility] Comment: [VERIFIED DATE]09.15.17 Verified By:Jimmy Gleason (Electronic Signature) Blood specimen (specimen) 09/09/2017 10:03 AM EST 09/09/2017 12:55 PM EST Narrative Resulting Agency Comment Spec In Lab Tal Eagle MD MOLECULAR ORDERAB LES Performing Organization Address [facility]/ZIP Co de Phone Number [facility] [place] [address] * (ABNORMAL) Magnesium (09/09/2017 10:03 AM EST) Magnesium 0.68(L) 0.69 - 1.07 mmol/L [facility] Blood specimen (specimen) 09/09/2017 10:03 AM EST 09/09/2017 10:09 AM EST Narrative Resulting Agency Comment Spec In Lab Tal Eagle MD CHEMISTRY ORDERAB LES Performing Organization Address City/[facility]/ZIP Co de Phone Number [facility] [place] [address] * Lipid Panel (09/09/2017 10:03 AM EST) Cholesterol, Total 138 mg/dL [facility] Comment: Lower Risk: <200 mg/dL Average Risk: 200-239 mg/dL Higher Risk: >oy=661 mg/dL Triglyceride 178 mg/dL [facility] Comment: Average Risk/Lower Risk: <150 mg/dL Borderline High Risk: 150-199 mg/dL High Risk: 200-499 mg/dL Very High Risk: >lt=614 mg/dL HDL Cholesterol 33 mg/dL [facility] Comment: Males: ?? Higher Risk: <40 mg/dL Females: ?? HIgher Risk: <50 mg/dL LDL Cholesterol 69 mg/dL [facility] Comment: Lowest Risk: <100 mg/dL Lower Risk: 100-129 mg/dL Borderline High Risk: 130-159 mg/dL High Risk: 160-189 mg/dL Very High Risk: >wi=790 mg/dL Cholesterol/HDL Ratio 4.2 ratio [facility] Lipid Interpretation See Note [facility] Comment: Lipid management should be guided by a patient? s ASCVD risk, goals and preferences. ACC/AHA Guidelines recommend high intensity statin if clinical ASCVD or LDL greater than or equal to 190 mg/dL. http://Practical EHR Solutionsurl.com/MDW-FYP-Avlsgynzp Adults aged 40-75 with LDL 70-189 mg/dL should have their 10 year ASCVD risk estimated with the ACC/AHA ASCVD risk senior mechanical estimator http://tools.acc.org/EKEYH-Pnxb-Vikjxmqpq/ Statin should be discussed if risk greater [...] MD CHEMISTRY ORDERAB LES Performing Organization Address City/State/[facility] Co de Phone Number [facility] [place] [address] * Hemoglobin A1c (09/09/2017 10:03 AM EST) Hemoglobin A1c 5.1 4.3 - 5.6 % [facility] [...] 1, S67-74 Estimated Average Glucose 100 mg/dL [facility] Comment: eAG [...] into estimated average glucose values. ??Diabetes Care 2008:31(8):9226-9545. Blood specimen (specimen) 09/09/2017 10:03 AM EST 09/09/2017 10:09 AM EST Narrative Resulting Agency Comment Spec In Lab Tal Eagle MD CHEMISTRY ORDERAB LES [facility] [place] [address] * (ABNORMAL) CMP w/fasting Glucose (09/09/2017 10:03 AM EST) Glucose Fasting 122(H) 65 - 99 mg/dL [facility] [...] of Diabetes Mellitus, Position Statement from the [place] [employer]. ??Diabetes Care, Volume 33, Supplement [...] Alkaline Phosphatase 71 40 - 120 unit/L [facility] Bilirubin, Total 1.1 0.2 - 1.3 mg/dL [facility] Est Glomerular Filtration Rate 60 >=60 [facility] Comment: The reported eGFR should be multiplied by 1.2 for patients. The MDRD is not an appropriate measure of renal function for patients with body mass extremes or in patients with acute kidney failure. http://[facility]/DHnkdep http://[facility]/DHMCnkf Blood specimen (specimen) 09/09/2017 10:03 AM EST 09/09/2017 10:09 AM EST Narrative Resulting Agency Comment Spec In Lab Tal Eagle MD CHEMISTRY ORDERAB LES [facility] [place] [address] * 1,25-dihydroxycholecalciferol (09/09/2017 10:03 AM EST) Vit D 1,25 Dihydroxy (NOVEMBER) 59 18 - 64 pg/mL [facility] Comment: ADDITIONAL INFORMATION This test was developed and its performance characteristics determined by [facility] in a manner consistent with CLIA requirements. This test has not been cleared or approved by the U.S. Food and Drug Administration. Test Performed by: [facility] [address] [place] [address] Blood specimen (specimen) 09/09/2017 10:03 AM EST 09/09/2017 12:15 PM EST Narrative Resulting Agency Comment Spec In Lab Tal Eagle MD LAB SEND OUT ORDE RABLENORE Performing Organization Address [facility] de Phone Number [facility] [place] [address] * U24 Hrs and Volume (09/09/2017 6:15 AM EST) Hours Collected 24 hour(s) [facility] Total Volume 1,400 mL [facility] Urine specimen (specimen) 09/09/2017 6:15 AM EST 09/09/2017 11:04 AM EST Narrative Resulting Agency Comment Spec In Lab Tal Eagle MD CHEMISTRY ORDERAB LES Performing Organization Address [facility] Number [facility] [place] [address] * Uric acid, urine, 24 hour (09/09/2017 6:15 AM EST) U24 Uric Conc 29.0 mg/dL [facility] Uric Acid, 24 Hour Urine 0.41 0.25 - 0.80 gm/24hr [facility] Urine specimen (specimen) 09/09/2017 6:15 AM EST 09/09/2017 11:04 AM EST Narrative Resulting Agency Comment Spec In Lab Tal Eagle MD URINE ORDERABLES Performing Organization Address [facility] de Phone Number [facility] [place] [address] * (ABNORMAL) Protein, urine, 24 hour (09/09/2017 6:15 AM EST) Protein Concentration, U24 56 <=80 mg/dL [facility] Protein, 24 Hour Urine 0.78(H) <=0.15 gm/24hr [facility] Urine specimen (specimen) 09/09/2017 6:15 AM EST 09/09/2017 11:04 AM EST Narrative Resulting Agency Comment Spec In Lab Tal Eagle MD URINE ORDERABLES Performing Organization Address [facility] Co de Phone Number [facility] [place] [address] * Phosphorus, urine, 24 hour (09/09/2017 6:15 AM EST) Phosphorus Concentration, U24 66.0 mg/dL [facility] Phosphorus, 24 Hour Urine 0.9 0.4 - 1.3 gm/24hr [facility] Urine specimen (specimen) 09/09/2017 6:15 AM EST 09/09/2017 11:04 AM EST Narrative Resulting Agency Comment Spec In Lab Tal Eagle MD URINE ORDERABLES Performing Organization Address [facility] Co de Phone Number [facility] [place] [address] * Creatinine, urine, 24 hour (09/09/2017 6:15 AM EST) Cre Concentration, U24 107 mg/dL [facility] Creatinine, 24 Hour Urine 1.50 0.80 - 1.90 gm/24hr [facility] Urine specimen (specimen) 09/09/2017 6:15 AM EST 09/09/2017 11:04 AM EST Narrative Resulting Agency Comment Spec In Lab Tal Eagle MD URINE ORDERABLES Performing Organization Address City/[facility]/ZIP Co de Phone Number [facility] [place] [address] * (ABNORMAL) Creatinine Clearance, urine, 24 hour (09/09/2017 6:15 AM EST) Creatinine Clearance, 24 Hour Urine 87(L) 90 - 139 mL/min [facility] Cre Concentration, U24 107 mg/dL [facility] Creatinine, 24 Hour Urine 1.50 0.80 - 1.90 gm/24hr [facility] Urine specimen (specimen) 09/09/2017 6:15 AM EST 09/09/2017 11:04 AM EST Narrative Resulting Agency Comment Spec In Lab Tal Eagle MD URINE ORDERABLES Performing Organization Address City/[facility] Co de Phone Number [facility] [place] [address] * Calcium, urine, 24 hour (09/09/2017 6:15 AM EST) Ca Concentration, U24 9.5 mg/dL [facility] Calcium, 24 Hour Urine 133.0 50.0 - 300.0 mg/24hr [facility] Comment:Reference Range: 50. 0-300.0 mg/24 hour based on diet. Urine specimen (specimen) 09/09/2017 6:15 AM EST 09/09/2017 11:04 AM EST Narrative Resulting Agency Comment Spec In Lab Tal Eagle MD URINE ORDERABLES Performing Organization Address City/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
--- OUTSIDE RECORDS SUMMARY | 2024-05-16 17:27 | XMS_ITS | Encounter Summary ---
Author Organization [facility] [place] [address] Care Team Providers Care Optics Test Technician Name Role Phone AdeelUrbano Primary Care Provider [phone] Reason for Visit * Auth/Cert Specialty Diagnoses / Procedures Referred By Humberto t Referred To Contact Diagnoses Presence of right artificial knee joint Osteoarthritis of the knee Procedures PRO TOTAL KNEE ARTHROPLASTY TOTAL KNEE ARTHROPLASTY (WRVU 20.72) MODIFIER, ATTUNE CURVED FIXED PLATFORM, DEPUY Referral ID Status Reason Start Date Expiration Date Visits Re quested Visits Authorized [id number] 1 1 Encounter Details Date Type Department Care Team (Latest Contact Info) Description 11/25/2017 9:14 AM EDT - 11/26/2017 3:14 PM EDT Hospital Encounter [place] [address] Breezy Dale MD [facility] [place] [address] Pain of right lower extremity; Debility; Primary [...] Cody Bolden Patient Age: 67 y.o. Language: Moroccan Race: White Ethnicity: Not nor Admit date: 11/25/2017 Discharge date and time: 11/26/2017 Attending Physician: Breezy Dale MD Discharge Physician: Breezy Dale MD Follow-up Recommendations for Providers: See discharge instructions for additional details. Future Appointments Date Time Provider Department Center 01/04/2018 12:30 PM [facility] DX ROOM 6 Xray [facility] 01/04/2018 1:30 PM Franko Hartley PA [facility] [address] [place] [address] CLIN Inpatient Provider Contact Information: Breezy Dale MD Orthopedics: [phone] After hours and weekends, call [facility] Coupler, , and have the Orthopedic resident paged. [...] Primary * Anmol De Leon MD - Resident-Algology Teacher Procedure(s): RIGHT TOTAL KNEE ARTHROPLASTY MODIFIER, ATTUNE CURVED FIXED PLATFORM, SendoidUY Intraoperative Findings: Arthritic changes in all three [...] bowel movement. You can also take an ecnt-svo-tcwuruo medication, Miralax if needed to combat constipation. [...] as much as possible. Call your doctor ([phone]) if you develop: 1. Fever greater than 100.5 2. Severe nausea or vomiting 3. Increasing pain that is not controlled by pain medications 4. Increasing redness, swelling, or drainage from incisions 5. Change in sensation FOLLOW-UP APPOINTMENTS: 1. You will have follow-up appointments at [facility] as indicated below in Future Appointment and Orders. 2. You will need to have x-rays prior to your follow-up appointment on 01/04/2018. Please come to Radiology, desk 3T, 1 hour BEFORE that appointment for those x-rays. Future Appointments Date Time Provider Department Center 01/04/2018 12:30 PM [facility] DX ROOM 6 Xray [facility] 01/04/2018 1:30 PM Franko Hartley PA [facility] [address] [place] [address] If you have questions or concerns: Thursday through Thursday, 8 AM - 5 PM, please call Breezy Yang MD's office at . If it is after 5 PM, the weekend, or holidays, please call and ask to speak with theOrthopedic resident on-call. General Instructions None Future Appointments and Orders Future Appointments Provider Department Dept Phone 01/04/2018 1:30 PM Franko Hartley PA Orthopaedics at [place] [phone] Future Orders Complete By Expires Walker standard [EQ135 Custom] As directed Process Instructions: Scheduling Instructions: Comments: Cody Bolden [address] [facility] [phone] (home) [phone] (work) Telephone Information: Diagnosis:right total knee arthroplasty with Unsteady gait Patient's: Hgt: 5'10 Wgt: 230 VENDOR: [facility] Ordering: Front wheel walker Deliver to pt's hospital room #: Short Stay 17 Questions: Vendor Name/Contact information: [facility] Primary Care Provider: Urbano Denis DO [phone] Discharge References/Attachments None documented in this encounter [...] bowel movement. You can also take an ehqf-qzl-wtgyzvu medication, Miralax if needed to combat constipation. [...] as much as possible. Call your doctor ([phone]) if you develop: 1. Fever greater than 100.5 2. Severe nausea or vomiting 3. Increasing pain that is not controlled by pain medications 4. Increasing redness, swelling, or drainage from incisions 5. Change in sensation FOLLOW-UP APPOINTMENTS: 1. You will have follow-up appointments at [facility] as indicated below in Future Appointment and Orders. 2. You will need to have x-rays prior to your follow-up appointment on 01/04/2018. Please come to Radiology, desk 3T, 1 hour BEFORE that appointment for those x-rays. Future Appointments Date Time Provider Department Center 01/04/2018 12:30 PM [facility] DX ROOM 6 Xray [facility] 01/04/2018 1:30 PM Franko Hartley PA [facility] [place] [facility] If you have questions or concerns: [...] EDT Office of Care Management (OCM) / Sleep Scientist(CM) Providers have indicated that patient would benefit from use of walker. CM will have natural resources engineer send referral to Ortho Care Located @ [facility] Center [place], [place] For discharge home today from Short Stay unit. Aarti Appiah RN Case Manager Pager [phone] * Anmol De Leon - 11/26/2017 6:17 [...] XR Guy Giraldo MD Orthopaedic Surgery Pager [phone] documented in this encounter H&P Notes * [...] with outpatient services Alize Hardwick, PT Pager: [phone] Inpatient Physical Therapy [facility] AM-PAC 6 Clicks/stairs Basic Mobility Inpatient [...] hepatitis) K73.2 ??? Prophylactic immunotherapy Z29.8 ??? [facility] current use of immunosuppressive drug Z79.899 ??? [...] Status right lower extremity Bed Mobility Assessment/Treatment Ewysee-ys-Ktb [place] (Bed Mobility) independent Kbb-ox-Tlekoc [place] (Bed Mobility) independent Transfer Assessment/Treatment [place] (Sit-Stand Transfers) conditional independence [place] (Stand-Sit Transfers) conditional independence Bxr-Krfbt-Pze Assistive Device (Transfers) rolling walker [place] (Toilet Transfers) conditional independence Assistive Device (Toilet Transfers) rolling walker Impairments (Transfers) ROM (range of motion) decreased;pain;strength decreased Gait Assessment/Treatment [place] (Gait) conditional independence Assistive Device (Gait) rolling walker Distance in Feet (Gait) >150ft Gait Pattern Analysis swing-through gait Impairments (Gait) pain;ROM (range of motion) decreased;strength decreased Comment (Gait) Pt demonstrates mild antalgic gait pattern, steady with use of walker Stairs Assessment/Treatment Number of Stairs (Stairs) 13 Handrail Location (Stairs) left side (ascending) [place] (Stairs) conditional independence Technique (Stairs) bsfa-ej-pyli (ascending);ofpz-ti-fppv (descending) Impairments (Stairs) pain;ROM (range of motion) [...] Discharge Disposition: (P) home with assist Pager: [phone] ANATOLY VAZQUEZ OT 11/26/2017 Occupational Therapy Rehabilitation [...] Comment 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 Patient uses cane when needed. Vision Assessment/Intervention Additional Documentation (WFL) Cognitive Assessment/Intervention Additional Documentation (WFL) Pain Scale/Rating Pain Assessment Scale Numbers (Numeric Rating Pain Scale) Pain Level 2 ROM (Range of Motion) Additional Documentation General Assessment (Group) General Range of Motion Detail WNL Bed Mobility Assessment/Treatment Dkwzpx-yd-Qba [place] (Bed Mobility) independent Transfer Assessment/Treatment Bed-Chair [place] (Transfers) independent Chair-Bed [place] (Transfers) independent Naq-Tnszy-Azi Assistive Device (Transfers) rolling walker [place] (Sit-Stand Transfers) independent [place] (Stand-Sit Transfers) independent Gee-Xildy-Sfj Assistive Device (Transfers) rolling walker Gait Assessment/Treatment [place] (Gait) independent Assistive Device (Gait) rolling walker [...] Body Dressing Assessment/Training Position (LB Dressing) standing;sitting [place] Level (LB Dressing) conditional independence Clinical Impression [...] Dale MD - 11/25/2017 12:15 PM EDT [facility] Operative Note Patient Name: Cody Bolden : [id number] MR#: [id number] Case Date: 11/25/2017 Surgeon: Surgeon(s) and Role: * Breezy Dale MD - Primary * Anmol De Leon MD - Resident-Algology Teacher Preoperative Diagnosis: Osteoarthritis right knee Postoperative Diagnosis: Same Procedure Performed: right Total Knee Arthroplasty (CPT 95964) Anesthesia: Spinal, Adductor Canal Block (performed in [...] spacer blocks were removed and the metal movie actor was placed on the medial side with [...] the remaining femoral cut. A large lamina extension service advisor was placed in the notch. On the medial side we removed the remaining meniscus and then ressected posterior osteophyte. The pericapsular injection was then infiltrated into themedial and posterior structures making sure to aspirate before infiltrating. The lamina extension service advisor was changed to view the lateral side. [...] Implant Name Type Inv. Item Serial No. Minibus Driver Lot No. LRB No. Used Action CEMENT,BNE,SMARTSET,GHV,40G ([id number]) - [id number] IMPLANTS CEMENT,BNE,SMARTSET,GHV,40G ([id number]) Fleck - [employer] [id number] Right 2 Implanted BASE,ATUN,TIB,FB,CMNT,SZ8 ([id number]) (AUTOREQ) - [id number] IMPLANTS BASE,ATUN,TIB,FB,CMNT,SZ8 ([id number]) (AUTOREQ) DepStarBlock.comPrekindergarten Teacher - [id number] Right 1 Implanted CAESAR CAUSEY MDL,DOME,41MM ([id number]) (AUTOREQ) - [id number] IMPLANTS CAESAR CAUSEY MDL,DOME,41MM ([id number]) (AUTOREQ) Depuy Prekindergarten Teacher - [id number] Right 1 Implanted COMPO,ATTUNE,FEM,CR,SZ8,RT ([id number]) (AUTOREQ) - [id number] IMPLANTS COMPO,ATTUNE,FEM,CR,SZ8,RT ([id number]) (AUTOREQ) Depuy Prekindergarten Teacher - 3527 [id number] Right 1 Implanted INSER,ATTUNE,CR,FB,SZ8,5MM ([id number]) (AUTOREQ) - [id number] IMPLANTS INSER,ATTUNE,CR,FB,SZ8,5MM ([id number]) (AUTOREQ) Depuy Prekindergarten Teacher - 3527 [id number] Right 1 Implanted documented in this encounter Plan of Treatment Upcoming Encounters Date Type Department Care Team (Late st Contact Info) Description 06/22/2024 11:00 AM EST TH Visit (TeleHealth) Cardiology at [address] [phone] Byron Brown MD [facility] [place] [address] 07/14/2024 10:00 AM EST Hospital Encounter Non-[place] [phone] Arrived documented as of this encounter Goals [...] POCT GLUCOSE Routine 11/25/2017 10:27 AM EDT HOMOEOPATH SCAN 11/25/2017 12:00 AM EDT EKG 12-LEAD Routine 11/04/2017 12:43 PM EDT Pain of right lower extremity Debility Primary osteoarthritis of right knee documented in this encounter Results * (ABNORMAL) POCT Glucose (11/26/2017 11:22 AM EDT) [facility] Signature Glucose, POC 208(H) 65 - 199 mg/dL [facility] Comment: Supplemental ranges: <140 mg/dL before meals <180 mg/dL all other times of the day Blood specimen (specimen) 11/26/2017 11:22 AM EDT 11/26/2017 11:22 AM EDT Breezy Dlae MD POINT OF CARE TEST ORDERABLES [facility] [place] [address] * POCT Glucose (11/26/2017 7:15 AM EDT) Pathologist [facility] Glucose, POC 176 65 - 199 mg/dL [facility] Comment: Supplemental ranges: <140 mg/dL before meals <180 mg/dL all other times of the day Blood specimen (specimen) 11/26/2017 7:15 AM EDT 11/26/2017 7:15 AM EDT Breezy Dale MD POINT OF CARE TEST ORDERABLES Performing Organization Address [facility]/ZIP Co de Phone Number [facility] [place] [address] * (ABNORMAL) Differential, Automated (11/26/2017 1:33 AM EDT) [facility] [address] Neutrophil % 90.9 % [facility] Neutrophil Absolute 11.45(H) 1.70 - 6.10 x10(3)/mc L [facility] Lymph % 5.2 % [facility] Lymphocytes Abs 0.6(L) 0.9 - 3.2 x10(3)/mc L [facility] Monocyte % 3.0 % [facility] Monocyte Abs 0.4 0.3 - 0.9 x10(3)/mc L [facility] Eos % 0.2 % [facility] Eosinophils Abs 0.0 0.0 - 0.4 x10(3)/mc L [facility] Basophil % 0.3 % [facility] [...] Gran Absolute 0.05(H) 0.00 - 0.04 x10(3)/[facility] Blood specimen (specimen) 11/26/2017 1:33 AM EDT 11/26/2017 1:37 AM EDT Narrative Resulting Agency Comment Spec In Lab Anmol De Leon MD HEMATOLOGY ORDERABLE S [facility] [place] [address] * (ABNORMAL) Hemogram (11/26/2017 1:33 AM EDT) White Blood Cell 12.6(H) 4.0 - 9.5 x10(3)/[facility] Red Blood Cell 4.90 4.58 - 5.54 x10(6)/[facility] Hemoglobin 15.1 13.7 - 16.5 gm/dL [facility] Hematocrit 42.8 40.5 - 48.5 % [facility] Mean Cell Volume 87.3 82.9 - 93.1 [facility] Mean Cell Hemoglobin 30.8 27.5 - 32.[address] [facility] Mean Cell Hemoglobin Concentration 35.3 32.0 - 35.7 gm/dL [facility] Platelet 249 145 - 357 x10(3)/[facility] RDW Standard Deviation 42.6 36.0 - 45.0 [facility] RDW coefficient of variation 13.3 11.4 - 13.8 % [facility] Mean Platelet Volume 9.4 7.6 - 12.9 [facility] NRBC% auto 0.0 % [facility] NRBC Absolute 0.000 0.000 - 0.000 x10(3)/ L [facility] Blood specimen (specimen) 11/26/2017 1:33 AM EDT 11/26/2017 1:37 AM EDT Narrative Resulting Agency Comment Spec In Lab Anmol De Leon MD HEMATOLOGY ORDERABLE S [facility] [place] [address] * Basic Metabolic Panel (non-fasting) (11/26/2017 1:33 AM EDT) Glucose 192 65 - 199 mg/dL [facility] Comment:Diabetes: >=200 mg/d L plus symptoms Blood Urea Nitrogen 15 10 - 20 mg/dL [facility] Creatinine 1.17 0.80 - 1.50 mg/dL [facility] [...] 15 mmol/L [facility] Calcium 8.8 8.5 - 10.5 mg/dL [facility] Est Glomerular Filtration Rate >60 >=60 [facility] Comment: The reported eGFR should be multiplied by 1.2 for patients. The MDRD is not an appropriate measure of renal function for patients with body mass extremes or in patients with acute kidney failure. http://DCITS.NXTM/DHnkdep http://DCITS.NXTM/DHMCnkf Blood specimen (specimen) 11/26/2017 1:33 AM EDT 11/26/2017 1:37 AM EDT Narrative Resulting Agency Comment Spec In Lab Breezy Dale MD CHEMISTRY ORDERABLE S [facility] [place] [address] * POCT Glucose (11/25/2017 10:04 PM EDT) Glucose, POC 192 65 - 199 mg/dL [facility] Comment: Supplemental ranges: <140 mg/dL before meals <180 mg/dL all other times of the day Blood specimen (specimen) 11/25/2017 10:04 PM EDT 11/25/2017 10:04 PM EDT Breezy Dale MD POINT OF CARE TEST ORDERABLES Performing Organization Address [facility]/ZIP Co de Phone Number [facility] [place] [address] * POCT Glucose (11/25/2017 7:06 PM EDT) Glucose, POC 116 65 - 199 mg/dL [facility] Comment: Supplemental ranges: <140 mg/dL before meals <180 mg/dL all other times of the day Blood specimen (specimen) 11/25/2017 7:06 PM EDT 11/25/2017 7:06 PM EDT Breezy Dale MD POINT OF CARE TEST ORDERABLES Performing Organization Address City/[facility]/ZIP Co de Phone Number [facility] [place] [address] * POCT Glucose (11/25/2017 3:36 PM EDT) Glucose, POC 167 65 - 199 mg/dL [facility] Comment: Supplemental ranges: <140 mg/dL before meals <180 mg/dL all other times of the day Blood specimen (specimen) 11/25/2017 3:36 PM EDT 11/25/2017 3:36 PM EDT Breezy Dale MD POINT OF CARE TEST ORDERABLES Performing Organization Address City/[facility]/ZIP Co de Phone Number [facility] [place] [address] * POCT Glucose (11/25/2017 1:05 PM EDT) Glucose, POC 146 65 - 199 mg/dL [facility] Comment: Supplemental ranges: <140 mg/dL before meals <180 mg/dL all other times of the day Blood specimen (specimen) 11/25/2017 1:05 PM EDT 11/25/2017 1:05 PM EDT Breezy Dale MD POINT OF CARE TEST ORDERABLES Performing Organization Address [facility] Co de Phone Number [facility] [place] [address] * POCT Glucose (11/25/2017 11:32 AM EDT) Glucose, POC 142 65 - 199 mg/dL [facility] Comment: Supplemental ranges: <140 mg/dL before meals <180 mg/dL all other times of the day Blood specimen (specimen) 11/25/2017 11:32 AM EDT 11/25/2017 11:32 AM EDT Breezy Dale MD POINT OF CARE TEST ORDERABLES Performing Organization Address [facility] Co de Phone Number [facility] [place] [address] * POCT Glucose (11/25/2017 10:27 AM EDT) Glucose, POC 141 65 - 199 mg/dL [facility] Comment: Supplemental ranges: <140 mg/dL before meals <180 mg/dL all other times of the day Blood specimen (specimen) 11/25/2017 10:27 AM EDT 11/25/2017 10:27 AM EDT Breezy Dale MD POINT OF CARE TEST ORDERABLES [facility] [place] [address] * SCAN DOC: HOMOEOPATH (11/25/2017 12:00 AM EDT) Anatomical Region Laterality [...] (Bezet) 453 ms MUSE SYSTEM Calculated P Center 44 degrees MUSE SYSTEM Calculated R Center -59 degrees MUSE SYSTEM Calculated T Center 2 degrees MUSE SYSTEM INTERPRETATION Sinus rhythm with Premature atrial complexes with Aberrant conduction Left anterior fascicular block Abnormal ECG When compared with ECG of 22-JUN-2016 20:24, No significant change was found Confirmed by Yogesh Ellis MDence (49) on 11/04/2017 2:05:54 PM MUSE SYSTEM 11/04/2017 12:4 3 PM EDT 11/04/2017 2:05 PM EDT Breezy Dale MD ECG ORDERABLES Performing Organization Address [facility] Co de Phone Number MUSE SYSTEM [...] Peralta, JADEN)1206 (Given - Provider: Daksha Peralta, RN) levothyroxine (SYNTHROID) tablet 137 mcg 137 [...] Flynn RN) 828 (Given - Provider: Daksha Peralta RN) senna-docusate (PERICOLACE) 8.6-50 mg per tablet 2 [...] Intravenous, EVERY 8 HOURS PRN, Starting on 5/23/18 at 1847, Until Laura 11/26/17 at 1714, [...] Unit) documented in this encounter Care Teams Optics Test Technician Relationship Specialty Start Date End Date Urbano Denis DO [address] [place] [address] PCP - General 09/03/12 03/17/22 Ruchi Valles RN Nurse Clinic Transplant Surgery 07/30/15 documented as of this encounter
--- OUTSIDE RECORDS SUMMARY | 2024-05-16 17:27 | XMS_ITS | Encounter Summary ---
[place] [address] Care Team Providers Care Supervisor Sample Name Role Phone AdeelUrbano Primary Care Provider Encounter Details Date Type Department Care Team (Late st Contact Info) Description 11/04/2017 1:30 PM EDT Notes [place] [address] Social History Tobacco Use Types Packs/Day Years [...] We discussed qualifications to go to a long-term facility. We discussed potential out of pocket [...] that they will be working with a healthcare network consultant after surgery to facilitate the discharge plan. I encouraged the patient to call with any questions or concerns prior to the surgery as well as when they discharge home. Health/Prescription Coverage: Primary Insurance: MEDICARE Secondary Insurance: [employer] [facility] Prescription Coverage: Yes Preferred Pharmacy: [place], [place] - [address] ? [facility] [address] ? Not a 24 hour pharmacy; exact hours not known Other: None Primary Care Provider: Urbano Denis DO [phone] Patient/Caregiver Goals of Treatment: He wants to move and do things. Potential Needs for Transition of Care: Rehab/SNF: No selection Home Health: No selection OP PT: [facility] [place], [place] A referral has been sent. Pt [...] with OP PT at [facility] [place]. A member of the Care Management team will continue to monitor progress, follow for continuity of care and assist with transition of care planning. Daksha Harrell Pager: [phone] documented in this encounter Plan of Treatment Upcoming Encounters Date Type Department Care Team (Late st Contact Info) Description 06/22/2024 11:00 AM EST Visit (TeleHealth) Cardiology at [address] [phone] Byron Brown MD [facility] [place] [address] 07/14/2024 10:00 AM EST Hospital Encounter Non-[place] [phone] Arrived documented as of this encounter Goals [...] filedocumented in this encounter Care Teams Supervisor Sample Relationship Specialty Start Date End Date Urbano Denis DO [address] [place] [address] PCP - General 09/03/12 03/17/22 Ruchi Valles RN Nurse Clinic Transplant Surgery 07/30/15 documented as of this encounter
--- OUTSIDE RECORDS SUMMARY | 2024-05-16 17:27 | XMS_ITS | Encounter Summary ---
Author Organization [facility] [place] [address] Care Team Providers Care Score Caller Name Role Phone Urbano Denis DO Primary Care Provider [phone] Encounter Details Date Type Department Care Team (Latest Contact Info) Description 2017 8:54 PM EST - 2017 11:59 PM EST Hospital [place] [address] Discharge Disposition: Home Social History Tobacco Use [...] EST TH Visit (TeleHealth) Cardiology at [address] [phone] Byron Brown MD [facility] [place] [address] 07/14/2024 10:00 AM EST Hospital Encounter Non-Invasive Cardiology [place] [phone] Arrived documented as of this encounter Goals [...] (2017 3:40 PM EST) Tacrolimus 6.2 ng/mL [facility] Comment: Trough therapeutic: ??5-15 ng/mL Performed by ultra-performance liquid chromatography tandem mass spectrometry (UPLCMS/MS). This test was developed and its performance characteristics determined by [facility]. It has not been cleared or [...] ORDERAB LES [facility] [place] [address] documented in this encounter Visit Diagnoses Not on filedocumented in this encounter Care Teams Score Caller Relationship Specialty Start Date End Date Urbano Denis DO [address] [place] [address] PCP - General 09/03/12 03/17/22 Ruchi Valles RN Nurse Clinic Transplant Surgery 07/30/15 documented as of this encounter
--- OUTSIDE RECORDS SUMMARY | 2024-05-16 17:27 | XMS_ITS | Encounter Summary ---
Author Organization [facility] [place] [address] Care Team Providers Care Commercial Credit Reviewer Name Role Phone AdeelUrbano boland Primary Care Provider Encounter Details Date Type Department Care Team (Late st Contact Info) Description 11/19/2017 8:30 AM EDT Notes Only [place] [phone] Social History Tobacco Use Types Packs/Day Years [...] AM EST TH Visit (TeleHealth) Cardiology at [address] [phone] Byron Brown MD [facility] [place] [address] 07/14/2024 10:00 AM EST Hospital Encounter Non[place] [address] Arrived documented as of this [...] in this encounter Care Teams Commercial Credit Reviewer Relationship Specialty Start Date End Date Urbano Denis DO [address] [place] [address] [address] [place] [address] PCP - General 09/03/12 03/17/22 Ruchi Valles RN Nurse Clinic Transplant Surgery 07/30/15 documented as of this encounter
--- OUTSIDE RECORDS SUMMARY | 2024-05-16 17:27 | XMS_ITS | Encounter Summary ---
Author Organization [facility] [place] [address] Care Team Providers Care Site Coordinator Name Role Phone AdeelUrbano Primary Care Provider [phone] Reason for Visit * Auth/Cert Specialty Diagnoses / Procedures Referred By Humberto t Referred To Contact Diagnoses Presence of right artificial knee joint Osteoarthritis of the knee Procedures PRO TOTAL KNEE ARTHROPLASTY TOTAL KNEE ARTHROPLASTY (WRVU 20.72) MODIFIER, ATTUNE CURVED FIXED PLATFORM, DEPUY Referral ID Status Reason Start Date Expiration Date Visits Re quested Visits Authorized [id number] 1 1 Encounter Details Date Type Department Care Team (Late st Contact Info) Description 11/25/2017 10:29 AM EDT Anesthesia Event [place] [address] Mariangel Varela MD [facility] [place] [address] Anesthesia Record Procedure Summary Procedure Name Responsible [...] Jerri Sanchez RN 11/26/17 1329 by Marley aCstillo RN Incision 11/25/17; 1105; knee ; 06/17/18; [...] Varela MD - 11/25/2017 1:41 PM EDT [facility] Department of Anesthesiology Post-procedure Note Patient: Cody Bolden Procedure Summary Date Anesthesia Start Anesthesia Stop Room / Location 11/25/17 1029 [facility] OR 10 / [facility] MAIN OR Procedure Diagnosis Surgeon Responsible Provider TOTAL KNEE ARTHROPLASTY (WRVU 20.72) (Right Knee); MODIFIER, ATTUNE CURVED FIXED PLATFORM, DEPUY (Right Knee) (Osteoarthritis of the knee) Breezy Dale MD Sites, Brian D, MD All Anesthesia Providers: Anesthesiologist: Mariangel Varela MD NECK PINNER: Marcio Argueta CRNA Most Recent Vitals: 11/25/17 1315 BP: 167/77 Pulse: 60 Resp: 22 Temp: SpO2: (!) 88% Pain Patient Location: PACU/[facility] Level of Consciousness: Awake and Alert [...] w dextrose 2 ml Events/Notes Events: None Resident/NECK PINNER: MARCIO ARGUETA Second Resident/NECK PINNER: Fellow: Attending Physician: MARIANGEL VARELA ~~~~~~~~~~~~~~~~~~~~~~~~~~~~~~~~~~~~~~~~~~~~~~~~~~~~~~~~~~~~ * [...] Length: 10 cm Gauge: 21 Needle Type: H-euvto-rjczn Medication injection made incrementally with aspirations. Nerve [...] D deficiency ??? 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 senior living current use of immunosuppressive drug ??? CAH [...] EXTREMITY performed by Que Amaro MD at [facility] OR ??? PRO REIMPLANT URETER, SINGLE URETER Left 05/20/2016 @URETERONEOCYSTOSTOMY ANASTOMOSIS OF SINGLE URETER TO BLADDER performed by Santosh Arredondo MD at [facility] OR ??? PRO REIMPLANT URETER, SINGLE URETER N/A 05/20/2016 @URETERONEOCYSTOSTOMY ANASTOMOSIS OF SINGLE URETER TO BLADDER performed by Que Amaro MD at [facility] OR ??? PRO TRANSPLANT, PREP CADAVER RENAL GRAFT N/A 09/16/2015 @PREPARATION CADAVERIC RENAL ALLOGRAFT performed by Franko Larkin MD at [facility] OR ??? PRO TRANSPLANTATION OF KIDNEY N/A 09/16/2015 @KIDNEY TRANSPLANT, WITHOUT RECIPIENT NEPHRECTOMY performed by Franko Larkin MD at [facility] OR Social History Substance Use Topics [...] EST TH Visit (TeleHealth) Cardiology at [address] [phone] Byron Brown MD [facility] [place] [address] 07/14/2024 10:00 AM EST Hospital Encounter Non-Invasive [place] [address] Arrived documented as of this encounter Goals [...] w dextrose 2 ml Events/Notes Events: None Resident/NECK PINNER: MARCIO ARGUETA Second Resident/NECK PINNER: Fellow: Attending Physician: MARIANGEL VARELA ~~~~~~~~~~~~~~~~~~~~~~~~~~~~~~~~~~~~~~~~~~~~~~~~~~~~~~~~~~~~ ANESTHESIA [...] Length: 10 cm Gauge: 21 Needle Type: W-odqdk-eplsr Medication injection made incrementally with aspirations. Nerve infiltration solution through a needle Bupivicaine 0.5% 20 mL Additional Notes No complications or paresthesias. Patient tolerated the procedure well.Intermittent aspiration negative. Resident: Sterling Resident: Fellow: JAVI [...] Change 11/25/2017 12:00 PM EDT 1,463 mg/kg/hr 03921.4 mL/hr New Bag 11/25/2017 10:48 AM EDT 1,463 mg documented in this encounter Care Teams Site Coordinator Relationship Specialty Start Date End Date Urbano Denis DO [address] [place] [address] PCP - General 09/03/12 03/17/22 Ruchi Valles RN Nurse Clinic Transplant Surgery 07/30/15 documented as of this encounter
--- OUTSIDE RECORDS SUMMARY | 2024-05-16 17:27 | XMS_ITS | Encounter Summary ---
Author Organization [facility] [place] [address] Care Team Providers Care Electrical Service Technician Name Role Phone Adeel Urbano KIRBY Primary Care Provider [phone] Reason for Visit * Auth/Cert Specialty Diagnoses / Procedures Referred By Humberto t Referred To Contact Diagnoses Presence of right artificial knee joint Osteoarthritis of the knee Procedures PRO TOTAL KNEE ARTHROPLASTY TOTAL KNEE ARTHROPLASTY (WRVU 20.72) MODIFIER, ATTUNE CURVED FIXED PLATFORM, DEPUY Referral ID Status Reason Start Date Expiration Date Visits Re quested Visits Authorized [id number] 1 1 Encounter Details Date Type Department Care Team (Late st Contact Info) Description 11/25/2017 11:16 AM EDT - 11/25/2017 1:39 PM EDT Surgery [place] [address] Breezy Dale MD [facility] [place] [address] TOTAL KNEE ARTHROPLASTY (WRVU 19.6) Social History [...] Cody Bolden Patient Age: 67 y.o. Language: Micronesian Race: White Ethnicity: Not nor Admit date: [...] Provider Contact Information: Breezy Dale MD Orthopedics: [phone] After hours and weekends, call [facility] Program Scheduler, , and have the Orthopedic resident paged. [...] Primary * Anmol De Leon MD - Resident-Merchant Tailor Procedure(s): RIGHT TOTAL KNEE ARTHROPLASTY MODIFIER, ATTUNE CURVED FIXED PLATFORM, YobbleUY Intraoperative Findings: Arthritic changes in all three [...] bowel movement. You can also take an gwwz-aod-qtmqukg medication, Miralax if needed to combat constipation. [...] as much as possible. Call your doctor ([phone]) if you develop: 1. Fever greater than 100.5 2. Severe nausea or vomiting 3. Increasing pain that is not controlled by pain medications 4. Increasing redness, swelling, or drainage from incisions 5. Change in sensation FOLLOW-UP APPOINTMENTS: 1. You will have follow-up appointments at [facility] as indicated below in Future Appointment and [...] 1:30 PM Franko Hartley PA [facility] [address] [place] [address] If you have questions or concerns: Thursday through Thursday, 8 AM - 5 PM, please call Breezy Yang MD's office at . If it is after 5 PM, the weekend, or holidays, please call and ask to speak with theOrthopedic resident on-call. General Instructions None Future Appointments and Orders Future Appointments Provider Department Dept Phone 01/04/2018 1:30 PM Franko Hartley PA Orthopaedics at [place] [phone] Future Orders Complete By Expires Walker standard [EQ135 Custom] As directed Process Instructions: Scheduling Instructions: Comments: Cody Bolden [address] [facility] [phone] (home) [phone] (work) Telephone Information: Diagnosis:right total knee arthroplasty with Unsteady gait Patient's: Hgt: 5'10 Wgt: 230 VENDOR: [facility] Ordering: Front wheel walker Deliver to pt's hospital room #: Short Stay 17 Questions: Vendor Name/Contact information: [facility] Primary Care Provider: Urbano Denis DO [phone] Discharge References/Attachments None documented in this encounter [...] bowel movement. You can also take an lzut-nnn-aqtuyvh medication, Miralax if needed to combat constipation. [...] as much as possible. Call your doctor ([phone]) if you develop: 1. Fever greater than 100.5 2. Severe nausea or vomiting 3. Increasing pain that is not controlled by pain medications 4. Increasing redness, swelling, or drainage from incisions 5. Change in sensation FOLLOW-UP APPOINTMENTS: 1. You will have follow-up appointments at [facility] as indicated below in Future Appointment and [...] 1:30 PM Franko Hartley PA [facility] [address] [place] [address] CLIN If you have questions or concerns: [...] EDT Office of Care Management (OCM) / Tooling Engineer(CM) Providers have indicated that patient would benefit from use of walker. CM will have clinical resource coordinator send referral to Ortho Care Located @ [place], [place] For discharge home today from Short Stay unit. Aarti Appiah RN Case Manager Pager [phone] * Anmol De Leon - 11/26/2017 6:17 [...] XR Guy Giraldo MD Orthopaedic Surgery Pager [phone] documented in this encounter H&P Notes * [...] with outpatient services Alize Hardwick, PT Pager: [phone] Inpatient Physical Therapy [facility] AM-PAC 6 Clicks/stairs Basic Mobility Inpatient [...] K73.2 ??? Prophylactic immunotherapy Z29.8 ??? senior living current use of immunosuppressive drug Z79.899 ??? [...] Status right lower extremity Bed Mobility Assessment/Treatment Fiedbw-ou-Pzy Keller (Bed Mobility) independent Yan-nd-Rgncnc Keller (Bed Mobility) independent Transfer Assessment/Treatment Keller (Sit-Stand Transfers) conditional independence Keller (Stand-Sit Transfers) conditional independence Khp-Okhaf-Dqj Assistive Device (Transfers) rolling walker Keller (Toilet Transfers) conditional independence Assistive Device (Toilet Transfers) rolling walker Impairments (Transfers) ROM (range of motion) decreased;pain;strength decreased Gait Assessment/Treatment Keller (Gait) conditional independence Assistive Device (Gait) rolling walker Distance in Feet (Gait) >150ft Gait Pattern Analysis swing-through gait Impairments (Gait) pain;ROM (range of motion) decreased;strength decreased Comment (Gait) Pt demonstrates mild antalgic gait pattern, steady with use of walker Stairs Assessment/Treatment Number of Stairs (Stairs) 13 Handrail Location (Stairs) left side (ascending) Keller (Stairs) conditional independence Technique (Stairs) apbw-xm-kxra (ascending);ftjj-ck-kqaf (descending) Impairments (Stairs) pain;ROM (range of motion) [...] Discharge Disposition: (P) home with assist Pager: [phone] ANATOLY VAZQUEZ, OT 11/26/2017 Occupational Therapy Rehabilitation [...] Comment Pt independent with ADLS and IADLS BLACKJACK PIT BOSS. Patient uses cane when needed. Vision Assessment/Intervention Additional Documentation (WFL) Cognitive Assessment/Intervention Additional Documentation (WFL) Pain Scale/Rating Pain Assessment Scale Numbers (Numeric Rating Pain Scale) Pain Level 2 ROM (Range of Motion) Additional Documentation General Assessment (Group) General Range of Motion Detail WNL Bed Mobility Assessment/Treatment Gzfhgz-dr-Sel Keller (Bed Mobility) independent Transfer Assessment/Treatment Bed-Chair Keller (Transfers) independent Chair-Bed Keller (Transfers) independent Cfa-Vwomc-Tyr Assistive Device (Transfers) rolling walker Keller (Sit-Stand Transfers) independent Keller (Stand-Sit Transfers) independent Mha-Cagvw-Czc Assistive Device (Transfers) rolling walker Gait Assessment/Treatment Keller (Gait) independent Assistive Device (Gait) rolling walker [...] Body Dressing Assessment/Training Position (LB Dressing) standing;sitting Keller Level (LB Dressing) conditional independence Clinical Impression [...] Dale MD - 11/25/2017 12:15 PM EDT [facility] Operative Note Patient Name: Cody Bolden : [id number] MR#: [id number] Case Date: 11/25/2017 Surgeon: Surgeon(s) and Role: * Breezy Dale MD - Primary * Anmol De Leon MD - Resident-Merchant Tailor Preoperative Diagnosis: Osteoarthritis right knee Postoperative Diagnosis: Same Procedure Performed: right Total Knee Arthroplasty (CPT 82668) Anesthesia: Spinal, Adductor Canal Block (performed in [...] spacer blocks were removed and the metal twist maker was placed on the medial side with [...] the remaining femoral cut. A large lamina freelance interpreter/translator was placed in the notch. On the medial side we removed the remaining meniscus and then ressected posterior osteophyte. The pericapsular injection was then infiltrated into themedial and posterior structures making sure to aspirate before infiltrating. The lamina freelance interpreter/translator was changed to view the lateral side. [...] Implant Name Type Inv. Item Serial No. Toe Closing Machine Tender Lot No. LRB No. Used Action CEMENT,BNE,SMARTSET,GHV,40G ([id number]) - [id number] IMPLANTS CEMENT,BNE,SMARTSET,GHV,40G ([id number]) Depuy Systems Navigator - [id number] Right 2 Implanted BASE,ATUN,TIB,FB,CMNT,SZ8 ([id number]) (AUTOREQ) - [id number] IMPLANTS BASE,ATUN,TIB,FB,CMNT,SZ8 ([id number]) (AUTOREQ) [employer] Navigator - [id number] Right 1 Implanted CAESAR CAUSEY MDL,DOME,41MM ([id number]) (AUTOREQ) - [id number] IMPLANTS CAESAR CAUSEY MDL,DOME,41MM ([id number]) (AUTOREQ) [employer] Navigator - [id number] Right 1 Implanted COMPO,ATTUNE,FEM,CR,SZ8,RT ([id number]) (AUTOREQ) - [id number] IMPLANTS COMPO,ATTUNE,FEM,CR,SZ8,RT ([id number]) (AUTOREQ) [employer] Navigator - [id number] Right 1 Implanted INSER,ATTUNE,CR,FB,SZ8,5MM ([id number]) (AUTOREQ) - [id number] IMPLANTS INSER,ATTUNE,CR,FB,SZ8,5MM ([id number]) (AUTOREQ) [employer] Systems Navigator - [id number] Right 1 Implanted documented in this encounter Plan of Treatment Upcoming Encounters Date Type Department Care Team (Late st Contact Info) Description 06/22/2024 11:00 AM EST TH Visit (TeleHealth) Cardiology at [address] [phone] Byron Brown MD [facility] [place] [address] 07/14/2024 10:00 AM EST Hospital Encounter Non[place] [phone] Arrived documented as of this encounter Goals [...] POCT GLUCOSE Routine 11/25/2017 10:27 AM EDT FREIGHT FLOW SALES LEADER SCAN 11/25/2017 12:00 AM EDT EKG 12-LEAD Routine 11/04/2017 12:43 PM EDT Pain of right lower extremity Debility Primary osteoarthritis of right knee documented in this encounter Results * (ABNORMAL) POCT Glucose (11/26/2017 11:22 AM EDT) [facility] Signature Glucose, POC 208(H) 65 - 199 mg/dL [facility] Comment: Supplemental ranges: <140 mg/dL before meals <180 mg/dL all other times of the day Blood specimen (specimen) 11/26/2017 11:22 AM EDT 11/26/2017 11:22 AM EDT Breezy Dale MD POINT OF CARE TEST ORDERABLES [facility] [place] [address] * POCT Glucose (11/26/2017 7:15 AM EDT) Glucose, POC 176 65 - 199 mg/dL [facility] Comment: Supplemental ranges: <140 mg/dL before meals <180 mg/dL all other times of the day Blood specimen (specimen) 11/26/2017 7:15 AM EDT 11/26/2017 7:15 AM EDT Breezy Dale MD POINT OF CARE TEST ORDERABLES [facility] [place] [address] * (ABNORMAL) Differential, Automated (11/26/2017 1:33 AM EDT) Pathologist [facility] Neutrophil % 90.9 % [facility] Neutrophil Absolute 11.45(H) 1.70 - 6.10 x10(3)/mc L [facility] Lymph % 5.2 % [facility] Lymphocytes Abs 0.6(L) 0.9 - 3.2 x10(3)/mc L [facility] Monocyte % 3.0 % [facility] Monocyte Abs 0.4 0.3 - 0.9 x10(3)/mc L [facility] Eos % 0.2 % [facility] Eosinophils Abs 0.0 0.0 - 0.4 x10(3)/mc L [facility] Basophil % 0.3 % [facility] Baso Absolute 0.0 0.0 - 0.1 x10(3)/mc L [facility] Immature Gran % 0.40 % [facility] Comment: Immature granulocytes(IG's)percentage and absolute count will include metamyelocytes, myelocytes, and promyelocytes. Blood smears from CBCs yielding IG's will be scanned manually for concordance. If this scan disagrees with the automated IG or if promyelocytes are noted, a manual differential will be performed. Immature Gran Absolute 0.05(H) 0.00 - 0.04 x10(3)/ L [facility] Blood specimen (specimen) 11/26/2017 1:33 AM EDT 11/26/2017 1:37 AM EDT Narrative Resulting Agency Comment Spec In Lab Anmol De Leon MD HEMATOLOGY ORDERABLE S [facility] [place] [address] * (ABNORMAL) Hemogram (11/26/2017 1:33 AM EDT) White Blood Cell 12.6(H) 4.0 - 9.5 x10(3)/[facility] Red Blood Cell 4.90 4.58 - 5.54 x10(6)/[facility] Hemoglobin 15.1 13.7 - 16.5 gm/dL [facility] Hematocrit 42.8 40.5 - 48.5 % [facility] Mean Cell Volume 87.3 82.9 - 93.1 fL [facility] Mean Cell Hemoglobin 30.8 27.5 - 32.1 pg [facility] Mean Cell Hemoglobin Concentration 35.3 32.0 - 35.7 gm/dL [facility] Platelet 249 145 - 357 x10(3)/[facility] RDW Standard Deviation 42.6 36.0 - 45.0 [facility] RDW coefficient of variation 13.3 11.4 - 13.8 % [facility] Mean Platelet Volume 9.4 7.6 - 12.9 fL [facility] NRBC% auto 0.0 % [facility] NRBC Absolute 0.000 0.000 - 0.000 x10(3)/ L [facility] Blood specimen (specimen) 11/26/2017 1:33 AM EDT 11/26/2017 1:37 AM EDT Narrative Resulting Agency Comment Spec In Lab Anmol De Leon MD HEMATOLOGY ORDERABLE S Performing Organization Address City/State/[facility] Co de Phone Number [facility] [place] [address] * Basic Metabolic Panel (non-fasting) (11/26/2017 1:33 AM EDT) Glucose 192 65 - 199 mg/dL [facility] Comment:Diabetes: >=200 mg/d L plus symptoms Blood Urea Nitrogen 15 10 - 20 mg/dL [facility] Creatinine 1.17 0.80 - 1.50 mg/dL [facility] [...] questions. Chloride 100 98 - 107 mmol/L [facility] Carbon Dioxide 24 22 - 31 mmol/L [facility] Anion Gap 15 5 - 15 mmol/L [facility] Calcium 8.8 8.5 - 10.5 mg/dL [facility] Est Glomerular Filtration Rate >60 >=60 [facility] Comment: The reported eGFR should be multiplied by 1.2 for patients. The MDRD is not an appropriate measure of renal function for patients with body mass extremes or in patients with acute kidney failure. [email or web address]/DHnkdep [email or web address]com/DHMCnkf Blood specimen (specimen) 11/26/2017 1:33 AM EDT 11/26/2017 1:37 AM EDT Narrative Resulting Agency Comment Spec In Lab Breezy Dale MD CHEMISTRY ORDERABLE S [facility] [place] [address] * POCT Glucose (11/25/2017 10:04 PM EDT) Glucose, POC 192 65 - 199 mg/dL [facility] Comment: Supplemental ranges: <140 mg/dL before meals <180 mg/dL all other times of the day Blood specimen (specimen) 11/25/2017 10:04 PM EDT 11/25/2017 10:04 PM EDT Breezy Dale MD POINT OF CARE TEST ORDERABLES Performing Organization Address [facility] Co de Phone Number [facility] [place] [address] * POCT Glucose (11/25/2017 7:06 PM EDT) Glucose, POC 116 65 - 199 mg/dL [facility] Comment: Supplemental ranges: <140 mg/dL before meals <180 mg/dL all other times of the day Blood specimen (specimen) 11/25/2017 7:06 PM EDT 11/25/2017 7:06 PM EDT Breezy Dale MD POINT OF CARE TEST ORDERABLES Performing Organization Address [facility] Co de Phone Number [facility] [place] [address] * POCT Glucose (11/25/2017 3:36 PM EDT) Glucose, POC 167 65 - 199 mg/dL [facility] Comment: Supplemental ranges: <140 mg/dL before meals <180 mg/dL all other times of the day Blood specimen (specimen) 11/25/2017 3:36 PM EDT 11/25/2017 3:36 PM EDT Breezy Dale MD POINT OF CARE TEST ORDERABLES [facility] [address] * POCT Glucose (11/25/2017 1:05 PM EDT) Glucose, POC 146 65 - 199 mg/dL [facility] Comment: Supplemental ranges: <140 mg/dL before meals <180 mg/dL all other times of the day Blood specimen (specimen) 11/25/2017 1:05 PM EDT 11/25/2017 1:05 PM EDT Breezy Dale MD POINT OF CARE TEST ORDERABLES Performing Organization Address City/[facility]/ZIP Co de Phone Number [facility] [place] [address] * POCT Glucose (11/25/2017 11:32 AM EDT) Glucose, POC 142 65 - 199 mg/dL [facility] Comment: Supplemental ranges: <140 mg/dL before meals <180 mg/dL all other times of the day Blood specimen (specimen) 11/25/2017 11:32 AM EDT 11/25/2017 11:32 AM EDT Breezy Dale MD POINT OF CARE TEST ORDERABLES Performing Organization Address City/[facility]/ZIP Co de Phone Number [facility] [place] [address] * POCT Glucose (11/25/2017 10:27 AM EDT) Glucose, POC 141 65 - 199 mg/dL [facility] Comment: Supplemental ranges: <140 mg/dL before meals <180 mg/dL all other times of the day Blood specimen (specimen) 11/25/2017 10:27 AM EDT 11/25/2017 10:27 AM EDT Breezy Dale MD POINT OF CARE TEST ORDERABLES [facility] [place] [address] * SCAN DOC: FREIGHT FLOW SALES LEADER (11/25/2017 12:00 AM EDT) Anatomical Region Laterality [...] (Bezet) 453 ms MUSE SYSTEM Calculated P [place] 44 degrees MUSE SYSTEM Calculated R [place] -59 degrees MUSE SYSTEM Calculated T [place] 2 degrees MUSE SYSTEM INTERPRETATION Sinus rhythm [...] on Thu11/26/17 at 0600, Until Discontinued, Routine 0622 (Given - Provid er: Brenda Flynn RN) [...] meal)., Routine 2041 (Given - Provider: Brenda Flynn, JADEN) 06 (Given - Provider: Brenda Flynn RN) [...] (Intra-Procedure), Routine 1205 (Given - Provider: Breezy aDle MD) bisacodyl (DULCOLAX) EC tablet 10 mg [...] Routine 1527 (Given - Provider: Shannan Garcia, RN)204 (Given - Provider: Brenda Flynn, RN) 0121 [...] Unit) documented in this encounter Care Teams Electrical Service Technician Relationship Specialty Start Date End Date Urbano Denis DO [address] [place] [address] PCP - General 09/03/12 03/17/22 Ruchi Valles RN Nurse Clinic Transplant Surgery 07/30/15 documented as of this encounter
--- OUTSIDE RECORDS SUMMARY | 2024-05-16 17:27 | XMS_ITS | Encounter Summary ---
[place] [address] Care Team Providers Care Core Cutter And Reamer Name Role Phone Urbano Denis DO Primary Care Provider [phone] Reason for Visit * Reason Onset Date Comments Medication Refill 08/19/2017 Encounter Details Date Type Department Care Team (Late st Contact Info) Description 08/19/2017 Refill [place] [address] Joanne Nogueira CMA Social History Tobacco Use [...] 500 mg to be called in to [facility]. documented in this encounter Plan of Treatment Upcoming Encounters Date Type Department Care Team (Late st Contact Info) Description 06/22/2024 11:00 AM EST TH Visit (TeleHealth) Cardiology at [address] [address] Byron Brown MD [facility] [place] [address] 07/14/2024 10:00 AM EST Hospital Encounter Non-[place] [address] Arrived documented as of this [...] on filedocumented in this encounter Care Teams Core Cutter And Reamer Relationship Specialty Start Date End Date Urbano Denis DO [address] [place] [address] [address] [facility] 1 [place] [address] PCP - General 09/03/12 03/17/22 Ruchi Valles RN Nurse Clinic Transplant Surgery 07/30/15 documented as of this encounter
--- OUTSIDE RECORDS SUMMARY | 2024-05-16 17:27 | XMS_ITS | Encounter Summary ---
Author Organization [facility] Address [facility] [place] [address] Care Team Providers Care Fish Processor Name Role Phone AdeelUrbano Primary Care Provider [phone] Encounter Details Date Type Department Care Team (Latest Contact Info) Description 10/05/2017 9:46 AM EDT - 10/05/2017 11:59 PM EDT Hospital Encounter XRay at [address] [place] [address] Breezy Dale MD [facility] [place] [address] Right knee pain, unspecified chronicity Discharge Disposition: [...] EST TH Visit (TeleHealth) Cardiology at [address] [address] Byron Brown MD [facility] [place] [address] 07/14/2024 10:00 AM EST Hospital Encounter Non-Invasive Cardiology Lab [facility] [place] [phone] Arrived documented as of this encounter Goals [...] chronicity documented in this encounter Care Teams Fish Processor Relationship Specialty Start Date End Date Urbano Denis DO [address] [place] [address] PCP - General 09/03/12 03/17/22 Ruchi Valles RN Nurse Clinic Transplant Surgery 07/30/15 documented as of this encounter
--- OUTSIDE RECORDS SUMMARY | 2024-05-16 17:27 | XMS_ITS | Encounter Summary ---
Author Organization [facility] [place] [address] Care Team Providers Care Byproduct Engineer Name Role Phone AdeelUrbano toscano Primary Care Provider [phone] Reason for Visit * Reason Comments Medication Refill Encounter Details Date Type Department Care Team (Late st Contact Info) Description 08/19/2017 Refill [place] [phone] Tal Eagle MD [facility] [place] [address] Social History Tobacco Use Types Packs/Day Years [...] EST TH Visit (TeleHealth) Cardiology at [address] [phone] Byron Brown MD [facility] [address] 07/14/2024 10:00 AM EST Hospital Encounter Non-Invasive [place] [address] Arrived documented as of this encounter Goals [...] on filedocumented in this encounter Care Teams Byproduct Engineer Relationship Specialty Start Date End Date Urbano Denis DO [address] [place] [address] [address] [facility] 1 [place] [address] PCP - General 09/03/12 03/17/22 Ruchi Valles RN Nurse Clinic Transplant Surgery 07/30/15 documented as of this encounter
--- OUTSIDE RECORDS SUMMARY | 2024-05-16 17:27 | XMS_ITS | Encounter Summary ---
Author Organization [facility] [address] Care Team Providers Care Mixing And Molding Machine Operator Name Role Phone AdeelUrbano boland Primary Care Provider Reason for Visit * Reason Comments Medication Refill Encounter Details Date Type Department Care Team (Late st Contact Info) Description 07/30/2017 Refill [place] [address] Que Amaro MD [facility] [place] [address] Social History Tobacco Use Types Packs/Day Years [...] EST TH Visit (TeleHealth) Cardiology at [address] [address] Byron Brown MD [facility] [place] [address] 07/14/2024 10:00 AM [facility] Hospital Encounter Non-[place] [address] Arrived documented as of this encounter Goals [...] on filedocumented in this encounter Care Teams Mixing And Molding Machine Operator Relationship Specialty Start Date End Date Urbano Denis DO [address] [place] [address] [address] [facility] 1 [place] [address] PCP - General 09/03/12 03/17/22 Ruchi Valles RN Nurse Clinic Transplant Surgery 07/30/15 documented as of this encounter
--- OUTSIDE RECORDS SUMMARY | 2024-05-16 17:27 | XMS_ITS | Encounter Summary ---
Author Organization [facility] [place] [address] Care Team Providers Care Turkey Egg Gatherer Name Role Phone Urbano Denis DO Primary Care Provider Encounter Details Date Type Department Care Team (Late st Contact Info) Description 11/04/2017 12:20 PM EDT Clinical [place] [phone] Social History Tobacco Use Types Packs/Day Years [...] EST TH Visit (TeleHealth) Cardiology at [address] [phone] Byron Brown MD [facility] [place] [address] 07/14/2024 10:00 AM EST Hospital Encounter Non-Invasive [place] [address] Arrived documented as of this encounter Goals Goal Patient Goal Type Associated Problems Recent Progress Patient-Stated? Author [facility] Medication Compliance and Understanding Patient Facing Action Plan On track( 017 10:41 AM EDT) Selena Scott, [facility] Note: Patient Goal: Clear hepatitis C Timeframe to meet goal: within 12 weeks of therapy documented as of this encounter Visit Diagnoses Not on filedocumented in this encounter Care Teams Turkey Egg Gatherer Relationship Specialty Start Date End Date Urbano Denis DO [address] [place] [address] PCP - General 09/03/12 03/17/22 Ruchi Valles RN Nurse Clinic Transplant Surgery 07/30/15 documented as of this encounter
--- OUTSIDE RECORDS SUMMARY | 2024-05-16 17:27 | XMS_ITS | Encounter Summary ---
Author Organization [facility] Address [facility] [place] [address] Care Team Providers Care Tobacco Packer Name Role Phone Adeel Urbano KIRBY Primary Care Provider [phone] Reason for Visit * Reason Comments Right Knee Pain * Consultation (Routine) - Specialty Diagnoses / Procedures Referred By Humberto flor Referred To Contact Orthopaedics Diagnoses Osteoarthritis of right knee, unspecified osteoarthritis type Tal Eagle MD [facility] [place] [address] Breezy Dale MD [facility] [place] [address] Referral ID Status Reason Start Date Expiration Date V isits Requested Visits Authorized [id number] Consult, Test & Treat 09/09/2017 09/09/2018 10 10 Encounter Details Date Type Department Care Team (Latest Contact Info) Description 10/05/2017 10:20 AM EDT Office [place] [address] Breezy Dale MD [facility] [place] [address] Pain of right lower extremity; Debility; Primary [...] Bolden was referred from Tal Eagle MD [facility] [place] [address] I.D.: Cody Bolden is a 67 y.o. [...] not to answer # People Supported 2 Argentine, , No, not Argentine// Race White Health Literacy Extremely Currently working No Not working because: Retired [employer] Response 10/05/2017 KOOS JR Scores 57.14 Spine [employer] Response 10/05/2017 KOOS JR Scores 57.14 ALLERGIES [...] hepatitis) K73.2 ??? Prophylactic immunotherapy Z29.8 ??? er tech current use of immunosuppressive drug Z79.899 ??? [...] with surgery. All questions were answered. Breezy aDle MD, MS Chief, Division of Adult Reconstructive Industrial Arts [employer] TeacherTerrapin Fisher of Orthopaedics Department of Orthopaedics [facility] [address] [email or web address] documented in this encounter Plan of Treatment Upcoming Encounters Date Type Department Care Team (Late st Contact Info) Description 06/22/2024 11:00 AM EST TH Visit (TeleHealth) Cardiology at [address] [address] Byron Brown MD [facility] [place] [address] 07/14/2024 10:00 AM EST Hospital Encounter Non-Invasive [place] [address] Arrived documented as of this encounter Goals [...] * XR Knee Standing Alignment AP Lat Wamic Right (01/04/2018 12:15 PM EDT) Anatomical Region [...] arthroplasty. No acute complication. Breezy Dale MD [facility] [place] [facility] DX ORDERABLES * APTT (11/04/2017 12:53 PM EDT) Partial Thromboplastin Time 30 25 - 37 sec [facility] Comment: The PTT is NOT appropriate for heparin monitoring. Use the Anti-Xa level for heparin monitoring (HEP UFH) or LMWH monitoring (HEP LMW). A PTT less than 37 seconds generally indicates adequate hemostasis. Blood specimen (specimen) 11/04/2017 12:53 PM EDT 11/04/2017 12:56 PM EDT Narrative Resulting Agency Comment Spec In Lab Breezy Dale MD HEMATOLOGY ORDERABL ES Performing Organization Address [facility] Co de Phone Number [facility] [place] [address] * Prothrombin Time (11/04/2017 12:53 PM EDT) Prothrombin Time 11.9 9.4 - 12.5 sec [facility] International Normalization Ratio 1.1 [facility] Comment: An INR [...] MD HEMATOLOGY ORDERABL ES Performing Organization Address [facility] Co de Phone Number [facility] [place] [address] * (ABNORMAL) Basic Metabolic Panel (non-fasting) (11/04/2017 12:53 PM EDT) Glucose 129 65 - 199 mg/dL [facility] Comment:Diabetes: >=200 mg/d L plus symptoms Blood Urea Nitrogen 21(H) 10 - 20 mg/dL [facility] Creatinine 1.39 0.80 - 1.50 mg/dL [facility] Sodium 137 135 - 145 mmol/L [facility] [...] 51(L) >=60 [facility] Comment: The reported eGFR should be multiplied by 1.2 for patients. The MDRD is not an appropriate measure of renal function for patients with body mass extremes or in patients with acute kidney failure. http://[employer]/DHnkdep http://[employer]/DHMCnkf Blood specimen (specimen) 11/04/2017 12:53 PM EDT 11/04/2017 12:56 PM EDT Narrative Resulting Agency Comment Spec In Lab Breezy Dale MD CHEMISTRY ORDERABLE S Performing Organization Address [facility] Co de Phone Number [facility] [place] [address] * EKG 12 Lead (11/04/2017 12:43 PM EDT) Ventricular rate 65 BPM MUSE SYSTEM Atrial Rate 65 BPM MUSE SYSTEM P-R Interval 178 ms MUSE SYSTEM QRS Duration 102 ms MUSE SYSTEM Q-T Interval 436 ms MUSE SYSTEM QTC Calculated (Bezet) 453 ms MUSE SYSTEM Calculated P [place] 44 degrees MUSE SYSTEM Calculated R [place] -59 degrees MUSE SYSTEM Calculated T [place] 2 degrees MUSE SYSTEM INTERPRETATION Sinus rhythm with Premature atrial complexes with Aberrant conduction Left anterior fascicular block Abnormal ECG When compared with ECG of 22-JUN-2016 20:24, No significant change was found Confirmed by Damien Ellis MD (49) on 11/04/2017 2:05:54 PM MUSE SYSTEM 11/04/2017 12:4 3 PM EDT 11/04/2017 2:05 PM EDT Breezy Dale MD ECG ORDERABLES Performing Organization Address [facility] Co de Phone Number MUSE SYSTEM documented in this encounter Visit Diagnoses Diagnosis Pain of right lower extremity Debility Debility, unspecified Primary osteoarthritis of right knee Primary localized osteoarthrosis, lower leg Pain of right lower extremity Debility Debility, unspecified Primary osteoarthritis of right knee Primary localized osteoarthrosis, lower leg documented in this encounter Care Teams Tobacco Packer Relationship Specialty Start Date End Date Urbano Denis DO [address] [place] [address] PCP - General 09/03/12 03/17/22 Ruchi Valles RN Nurse Clinic Transplant Surgery 07/30/15 documented as of this encounter
--- OUTSIDE RECORDS SUMMARY | 2024-05-16 17:27 | XMS_ITS | Encounter Summary ---
Author Organization [facility] [place] [address] Care Team Providers Care Mr Teacher Name Role Phone AdeelUrbano boland Primary Care Provider [phone] Encounter Details Date Type Department Care Team (Late st Contact Info) Description 08/28/2017 Orders Only Solid [place] [address] Joanne Nogueira CMA Social History [...] faxed to [facility] laboratory at [phone]. documented in this encounter Plan of Treatment Upcoming Encounters Date Type Department Care Team (Late st Contact Info) Description 06/22/2024 11:00 AM EST TH Visit (TeleHealth) Cardiology at [address] [phone] Byron Brown MD [facility] [address] 07/14/2024 10:00 AM EST Hospital Encounter Non-Invasive Cardiology Lab [facility] [place] [address] Arrived documented as of this encounter Goals [...] on filedocumented in this encounter Care Teams Mr Teacher Relationship Specialty Start Date End Date Urbano Denis DO [address] [place] [address] PCP - General 09/03/12 03/17/22 Ruchi Valles RN Nurse Clinic Transplant Surgery 07/30/15 documented as of this encounter
--- OUTSIDE RECORDS SUMMARY | 2024-05-16 17:27 | XMS_ITS | Encounter Summary ---
Author Organization [facility] [place] [address] Care Team Providers Care Material Control Analyst Name Role Phone Urbano Denis DO Primary Care Provider Reason for Referral * Physical Therapy (Routine) - Specialty Diagnoses / Procedures Referred By Humberto flor Referred To Contact Physical Therapy Diagnoses Primary osteoarthritis of right knee Breezy Dale MD [facility] [place] [address] Referral ID Status Reason Start Date Expiration Date V isits Requested Visits Authorized [id number] Evaluate and Treat 11/04/2017 05/03/2018 12 12 Reason for Visit * Reason Comments Pre-op Exam Right TKA Encounter Details Date Type Department Care Team (Latest Contact Info) Description 11/04/2017 2:00 PM EDT Office [place] [address] Orlando Stafford MD [facility] [place] [address] Preop examination; Primary osteoarthritis of right knee; [...] hepatitis) K73.2 ??? Prophylactic immunotherapy Z29.8 ??? longterm current use of immunosuppressive drug Z79.899 ??? [...] Family history: No colon cancer, dad of [place] young age. Mother alive at 98. Review [...] EST TH Visit (TeleHealth) Cardiology at [address] [phone] Byron Brown MD [facility] [place] [address] 07/14/2024 10:00 AM EST Hospital Encounter Non-[place] [address] Arrived Scheduled Referrals Name Type Priority Associated Diagnoses Orde r Schedule Referral to Physical Therapy Outpatient Referral Routine Primary osteoarthritis of right knee Ordered: 11/04/2017 documented as of this encounter Goals Goal Patient Goal Type Associated Problems Recent Progress Patient-Stated? Author [facility] Medication Compliance and Understanding Patient [...] therapy documented in this encounter Care Teams Material Control Analyst Relationship Specialty Start Date End Date Urbano Denis DO [address] [place] [address] [address] [facility] 1 [place] [address] PCP - General 09/03/12 03/17/22 Ruchi Valles RN Nurse Clinic Transplant Surgery 07/30/15 documented as of this encounter
--- OUTSIDE RECORDS SUMMARY | 2024-05-16 17:28 | XMS_ITS | Encounter Summary ---
Author Organization [facility] Address [facility] Joel [facility] [place] [address] Care Team Providers Care Supervisor Contact Lens Name Role Phone Urbano Denis DO Primary Care Provider [phone] Encounter Details Date Type Department Care Team (Late st Contact Info) Description 12/19/2016 Telephone [place] [address] Herlinda Bell, [facility] [place] [address] Social History Tobacco Use Types Packs/Day Years [...] RD - 12/19/2016 11:30 AM EDT This bond writer reviewed phosphorus-rich foods with patient. He has [...] EST TH Visit (TeleHealth) Cardiology at [address] [phone] Byron Brown MD [facility] [place] [address] 07/14/2024 10:00 AM EST Hospital Encounter Non-[place]vasive [place] [address] Arrived documented as of this [...] filedocumented in this encounter Care Teams Supervisor Contact Lens Relationship Specialty Start Date End Date Urbano Denis DO [address] [place] [address] PCP - General 09/03/12 03/17/22 Ruchi Valles RN Nurse Clinic Transplant Surgery 07/30/15 documented as of this encounter
--- OUTSIDE RECORDS SUMMARY | 2024-05-16 17:28 | XMS_ITS | Encounter Summary ---
Author Organization [facility] [address] Care Team Providers Care Solar Photovoltaic Electrician Name Role Phone Urbano Denis DO Primary Care Provider [phone] Encounter Details Date Type Department Care Team (Late st Contact Info) Description 12/11/2016 Telephone [place] [address] Joanne Nogueira CMA Social History Tobacco Use [...] ?? Insurance: [employer] ?? Phone: ?? Organ Tuner Electronic: [employer] ?? Reference #: [id number] ?? Outcome: [...] EST TH Visit (TeleHealth) Cardiology at [address] [phone] Byron Brown MD [facility] [place] [address] 07/14/2024 10:00 AM EST Hospital Encounter Non-[place] [address] Arrived documented as of this encounter Goals Goal Patient Goal Type Associated Problems Recent Progress Patient-Stated? Author [facility] Medication Compliance and Understanding Patient Facing Action Plan On track( 017 10:41 AM EDT) No Selena Cisneros, [facility] Note: Patient Goal: Clear hepatitis C Timeframe to meet goal: within 12 weeks of therapy documented as of this encounter Visit Diagnoses Not on filedocumented in this encounter Care Teams Solar Photovoltaic Electrician Relationship Specialty Start Date End Date Urbano Denis DO [address] [place] [address] [address] [facility] 1 [place] [address] PCP - General 09/03/12 03/17/22 Ruchi Valles RN Nurse Clinic Transplant Surgery 07/30/15 documented as of this encounter
--- OUTSIDE RECORDS SUMMARY | 2024-05-16 17:28 | XMS_ITS | Encounter Summary ---
Author Organization [facility] [place] [address] Care Team Providers Care Supervisor Special Education Name Role Phone AdeelUrbano boland Primary Care Provider Encounter Details Date Type Department Care Team (Late st Contact Info) Description 03/04/2017 Abstract Solid [place] [address] Clark Bro Social History Tobacco [...] EST TH Visit (TeleHealth) Cardiology at [address] [phone] Byron Brown MD [facility] [place] [address] 07/14/2024 10:00 AM EST Hospital Encounter Non-Invasive [place] [address] Arrived documented as of this [...] filedocumented in this encounter Care Teams Supervisor Special Education Relationship Specialty Start Date End Date Urbano Denis DO [facility] [address] [place] [address] PCP - General 09/03/12 03/17/22 Ruchi Valles RN Nurse Clinic Transplant Surgery 07/30/15 documented as of this encounter
--- OUTSIDE RECORDS SUMMARY | 2024-05-16 17:28 | XMS_ITS | Encounter Summary ---
[place] [address] Care Team Providers Care Distribution Field Engineer Name Role Phone AdeelUrbano DO Primary Care Provider Reason for Visit * Reason Onset Date Comments Medication Refill 12/12/2016 Encounter Details Date Type Department Care Team (Late st Contact Info) Description 12/12/2016 Refill [place] [address] Joanne Nogueira CMA Social History Tobacco Use [...] EST TH Visit (TeleHealth) Cardiology at [address] [phone] Byron Brown MD [facility] [place] [address] 07/14/2024 10:00 AM [facility] Hospital Encounter Non-Invasive [place] [address] Arrived documented as of this encounter Goals Goal Patient Goal Type Associated Problems Recent Progress Patient-Stated? Author [facility] Medication Compliance and Understanding Patient Facing Action Plan On track( 017 10:41 AM EDT) Selena Scott, [facility] Note: Patient Goal: Clear hepatitis C Timeframe to meet goal: within 12 weeks of therapy documented as of this encounter Visit Diagnoses Not on filedocumented in this encounter Care Teams Distribution Field Engineer Relationship Specialty Start Date End Date Urbano Denis DO [address] [place] [address] [address] [facility] 1 [place] [address] PCP - General 09/03/12 03/17/22 Ruchi Valels RN Nurse Clinic Transplant Surgery 07/30/15 documented as of this encounter
--- OUTSIDE RECORDS SUMMARY | 2024-05-16 17:28 | XMS_ITS | Encounter Summary ---
[place] [address] Care Team Providers Care Fruit Bar Maker Name Role Phone Urbano Denis DO Primary Care Provider Encounter Details Date Type Department Care Team (Latest Contact Info) Description 01/15/2017 8:31 PM EDT - 01/15/2017 11:59 PM EDT Hospital [place] [address] Discharge Disposition: Home Social History Tobacco Use [...] AM EST Visit (TeleHealth) Cardiology at [address] [phone] Byron Brown MD [facility] [place] [address] 07/14/2024 10:00 AM EST Hospital Encounter Non-Invasive [place] [phone] Arrived documented as of this encounter Goals Goal Patient Goal Type Associated Problems Recent Progress Patient-Stated? Author [facility] Medication Compliance and Understanding Patient Facing Action [...] (01/15/2017 11:20 AM EDT) Tacrolimus 8.1 ng/mL [facility] Comment: Trough therapeutic: ??5-15 ng/mL Performed by ultra-performance liquid chromatography tandem mass spectrometry (UPLCMS/MS). This test was developed and its performance characteristics determined by [facility]. It has not been cleared [...] ORDERAB LES [facility] [place] [address] documented in this encounter Visit Diagnoses Not on filedocumented in this encounter Care Teams Fruit Bar Maker Relationship Specialty Start Date End Date Urbano Denis DO [address] [place] [address] PCP - General 09/03/12 03/17/22 Ruchi Valles RN Nurse Clinic Transplant Surgery 07/30/15 documented as of this encounter
--- OUTSIDE RECORDS SUMMARY | 2024-05-16 17:28 | XMS_ITS | Encounter Summary ---
Author Organization [facility] [place] [address] Care Team Providers Care Wood Products Manufacturer Name Role Phone Urbano Denis DO Primary Care Provider Encounter Details Date Type Department Care Team (Late st Contact Info) Description 12/12/2016 Notes Only [place] [address] Anabella Bright Social History Tobacco Use Types [...] Bright - 12/12/2016 3:41 PM EDT Transplant Maintenance Service Technician Note: Patient had requested Prograf and Cellcept [...] EST TH Visit (TeleHealth) Cardiology at [address] [address] Byron Brown MD [facility] [place] [address] 07/14/2024 10:00 AM EST Hospital Encounter Non-Invasive [place] [address] Arrived documented as of this encounter Goals [...] on filedocumented in this encounter Care Teams Wood Products Manufacturer Relationship Specialty Start Date End Date rUbano Denis DO [address] [place] [address] 1 [place] [address] PCP - General 09/03/12 03/17/22 Hai STANLYE,Ruchi Nurse Clinic Transplant Surgery 07/30/15 documented as of this encounter
--- OUTSIDE RECORDS SUMMARY | 2024-05-16 17:28 | XMS_ITS | Encounter Summary ---
Author Organization [facility] [place] [address] Care Team Providers Care Dispatcher Radioactive Waste Disposal Name Role Phone Urbano Denis DO Primary Care Provider Encounter Details Date Type Department Care Team (Latest Contact Info) Description 06/18/2017 8:59 PM EST - 06/18/2017 11:59 PM EST [place] [address] Discharge Disposition: Home Social History Tobacco Use [...] AM EST Visit (TeleHealth) Cardiology at [address] [phone] Byron Brown MD [facility] [place] [address] 07/14/2024 10:00 AM EST Hospital Encounter Non-[place] [address] Arrived documented as of this [...] (06/18/2017 1:48 PM EST) Tacrolimus 6.9 ng/mL [facility] Comment: Trough therapeutic: ??5-15 ng/mL Performed by ultra-performance liquid chromatography tandem mass spectrometry (UPLCMS/MS). This test was developed and its performance characteristics determined by [facility]. It has not been cleared [...] MD CHEMISTRY ORDERAB LES [facility] [place] [address] documented in this encounter Visit Diagnoses Not on filedocumented in this encounter Care Teams Dispatcher Radioactive Waste Disposal Relationship Specialty Start Date End Date Urbano Denis DO [address] [place] [address] PCP - General 09/03/12 03/17/22 Ruchi Valles RN Nurse Clinic Transplant Surgery 07/30/15 documented as of this encounter
--- OUTSIDE RECORDS SUMMARY | 2024-05-16 17:28 | XMS_ITS | Encounter Summary ---
[place] [address] Care Team Providers Care State Farm Agent Name Role Phone Urbano Denis DO Primary Care Provider Encounter Details Date Type Department Care Team (Latest Contact Info) Description 02/17/2017 8:41 PM EDT - 02/17/2017 11:59 PM EDT [place] [address] Discharge Disposition: Home Social History Tobacco Use [...] 11:00 AM EST Visit (TeleHealth) Cardiology at [address] [phone] Byron Brown MD [facility] [place] [address] 07/14/2024 10:00 AM EST Hospital Encounter Non-[place]vasive [place] [phone] Arrived documented as of this encounter Goals Goal Patient Goal Type Associated Problems Recent Progress Patient-Stated? Author DH Vincent Medication Compliance and Understanding Patient Facing Action [...] (02/17/2017 11:25 AM EDT) Tacrolimus 7.3 ng/mL [facility] Comment: Trough therapeutic: ??5-15 ng/mL Performed by ultra-performance liquid chromatography tandem mass spectrometry (UPLCMS/MS). This test was developed and its performance characteristics determined by [facility]. It has not been cleared [...] CHEMISTRY ORDERAB LES [facility] [place] [address] documented in this encounter Visit Diagnoses Not on filedocumented in this encounter Care Teams State Farm Agent Relationship Specialty Start Date End Date Urbano Denis DO [address] [place] [address] PCP - General 09/03/12 03/17/22 Ruchi Valles RN Nurse Clinic Transplant Surgery 07/30/15 documented as of this encounter
--- OUTSIDE RECORDS SUMMARY | 2024-05-16 17:28 | XMS_ITS | Encounter Summary ---
Author Organization [facility] [place] [address] Care Team Providers Care Manager Case Name Role Phone AdeelUrbano boland Primary Care Provider Reason for Visit * Reason Comments Medication Refill Encounter Details Date Type Department Care Team (Late st Contact Info) Description 11/29/2016 Refill [place] [address] Que Amaro MD [facility] [place] [address] Social History Tobacco Use Types Packs/Day Years [...] EST TH Visit (TeleHealth) Cardiology at [address] [phone] Byron Brown MD [facility] [place] [address] 07/14/2024 10:00 AM [facility] Hospital Encounter Non-Invasive [place] [phone] Arrived documented as of this encounter Goals [...] filedocumented in this encounter Care Teams Manager Case Relationship Specialty Start Date End Date Urbano Denis DO [address] [place] [address] [address] [facility] 1 [place] [address] PCP - General 09/03/12 03/17/22 Ruchi Valles RN Nurse Clinic Transplant Surgery 07/30/15 documented as of this encounter
--- OUTSIDE RECORDS SUMMARY | 2024-05-16 17:28 | XMS_ITS | Encounter Summary ---
Author Organization [facility] [place] [address] Care Team Providers Care Associate Director Career Services Name Role Phone Urbano Denis DO Primary Care Provider Encounter Details Date Type Department Care Team (Latest Contact Info) Description 03/18/2017 9:20 AM EDT Laboratory Appointment Lab [address] [place] [address] Kidney replaced by transplant Social [...] EST TH Visit (TeleHealth) Cardiology at [address] [phone] Byron Brown MD [facility] [place] [address] 07/14/2024 10:00 AM EST Hospital Encounter Non-[place]vasive [place] [address] Arrived documented as of this [...] indicated. Urobilinogen, Urine Dipstick 2.0(A) Normal mg/dL [facility] pH, [...] Clear Clear [facility] Specific [place] Urine Automated 1.026 1.002 - 1.030 [facility] Color, Urine Dipstick Yellow Yellow [facility] RBC, Urine 2 0 - 3 /HPF [facility] WBC, Urine Not Present 0 - 3 /HPF [facility] Bacteria, Urine Rare(A) None /HPF [facility] Reflex to Culture No [facility] Urine specimen obtained by clean catch procedure (specimen) 03/18/2017 9:38 AM EDT 03/18/2017 9:52 AM EDT Narrative Resulting Agency Comment Spec In Lab Tal Eagle MD URINE ORDERABLES Performing Organization Address City/[facility]/ZIP Co de Phone Number [facility] [place] [address] * (ABNORMAL) Protein/Creatinine Ratio, urine (03/18/2017 9:38 AM EDT) Creatinine, Urine 154 mg/dL [facility] Protein, Urine 32(H) 0 - 12 mg/dL [facility] Protein / Creatinine Ratio, Urine 0.2 ratio [facility] Urine specimen (specimen) 03/18/2017 9:38 AM EDT 03/18/2017 9:51 AM EDT Narrative Resulting Agency Comment Spec In Lab Tal Eagle MD URINE ORDERABLES Performing Organization Address City/[facility]/[place] Co de Phone Number [facility] [place] [address] * Differential, Automated (03/18/2017 9:36 AM EDT) Neutrophil % 59.8 % [facility] Neutrophil Absolute 4.57 1.70 - 6.10 x10(3)/[facility] Lymph % 26.6 % [facility] Lymphocytes Abs 2.0 0.9 - 3.2 x10(3)/[facility] Monocyte % 8.2 % [facility] Monocyte Abs 0.6 0.3 - 0.9 x10(3)/[facility]ORAT[facility] Eos % 3.8 % [facility] Eosinophils Abs 0.3 0.0 - 0.4 x10(3)/[facility] Basophil % 1.2 % [facility] Baso Absolute 0.1 0.0 - 0.1 x10(3)/[facility] Immature Gran % 0.40 % [facility] Comment: Immature granulocytes(IG's)percentage and absolute count will include metamyelocytes, myelocytes, and promyelocytes. Blood smears from CBCs yielding IG's will be scanned manually for concordance. If this scan disagrees with the automated IG or if promyelocytes are noted, a manual differential will be performed. Immature Gran Absolute 0.03 0.00 - 0.04 x10(3)/mcL [facility] Blood specimen (specimen) 03/18/2017 9:36 AM EDT 03/18/2017 9:46 AM EDT Narrative Resulting Agency Comment Spec In Lab Tal Eagle MD HEMATOLOGY ORDERA BLES [facility] [place] [address] * (ABNORMAL) Hemogram (03/18/2017 9:36 AM EDT) White Blood Cell 7.6 4.0 - 9.5 x10(3)/[facility] LABORATORY Red Blood Cell 5.42 4.58 - 5.54 x10(6)/ L [facility] Hemoglobin 17.1(H) 13.7 - 16.5 gm/dL [facility] Hematocrit 48.9(H) 40.5 - 48.5 % [facility] Mean Cell Volume 90.2 82.9 - 93.1 fL [facility] Mean Cell Hemoglobin 31.5 27.5 - 32.1 pg [facility] Mean Cell Hemoglobin Concentration 35.0 32.0 - 35.7 gm/dL [facility] Platelet 255 145 - 357 x10(3)/mc L [facility] RDW Standard Deviation 42.0 36.0 - 45.0 [facility]ORY RDW coefficient of variation 12.9 11.4 - 13.8 % [facility] Mean Platelet Volume 9.7 7.6 - 12.9 fL [facility] NRBC% auto 0.0 % [facility] NRBC Absolute 0.000 0.000 - 0.000 x10(3)/mc L [facility] Blood specimen (specimen) 03/18/2017 9:36 AM EDT 03/18/2017 9:46 AM EDT Narrative Resulting Agency Comment Spec In Lab Tal Eagle MD HEMATOLOGY ORDERA BLES Performing Organization Address [facility]/[place] Co de Phone Number [facility] [place] [address] * Gold Tube HOLD (03/18/2017 9:36 AM EDT) Gold Hold Sample in lab. [facility] Blood specimen (specimen) 03/18/2017 9:36 AM EDT 03/18/2017 9:46 AM EDT Tal Eagle MD CHEMISTRY ORDERAB LES Performing Organization Address [facility]/[place] Co de Phone Number [facility] [place] [address] * Lavender Tube HOLD (03/18/2017 9:36 AM EDT) Lavender Hold Sample in lab. [facility] Blood specimen (specimen) 03/18/2017 9:36 AM EDT 03/18/2017 9:46 AM EDT Tal Eagle MD HEMATOLOGY ORDERA BLES Performing Organization Address [facility]/[place] Co de Phone Number [facility] [place] [address] * (ABNORMAL) Uric acid (03/18/2017 9:36 AM EDT) Uric Acid 9.3(H) 3.5 - 8.5 mg/dL [facility] Blood specimen (specimen) 03/18/2017 9:36 AM EDT 03/18/2017 9:46 AM EDT Narrative Resulting Agency Comment Spec In Lab Tal Eagle MD CHEMISTRY ORDERAB LES Performing Organization Address City/[facility]/ZIP Co de Phone Number [facility] [place] [address] * Tacrolimus level (03/18/2017 9:36 AM EDT) Tacrolimus 4.4 ng/mL [facility] Comment: Trough therapeutic: ??5-15 ng/mL Performed by ultra-performance liquid chromatography tandem mass spectrometry (UPLCMS/MS). This test was developed and its performance characteristics determined by [facility]. It has not been [...] [facility] de Phone Number [facility] [place] [address] * Reticulocyte Count (03/18/2017 9:36 AM EDT) Reticulocyte % 2.0 0.7 - 2.6 % [facility] Retic Abs # 0.110 0.030 - 0.120 x10(6)/mcL [facility] Immature Retic% 11.0 0.0 - 15.6 % [facility] Reticulated Hgb 36.1 31.3 - 40.2 pg [facility] Blood specimen (specimen) 03/18/2017 9:36 AM EDT 03/18/2017 9:46 AM EDT Narrative Resulting Agency Comment Spec In Lab Tal Eagle MD HEMATOLOGY ORDERA BLES Performing Organization Address [facility]/[place] Co de Phone Number [facility] [place] [address] * Phosphorus (03/18/2017 9:36 AM EDT) Phosphorus 2.6 2.5 - 4.5 mg/dL [facility] Blood specimen (specimen) 03/18/2017 9:36 AM EDT 03/18/2017 9:46 AM EDT Narrative Resulting Agency Comment Spec In Lab Tal Eagle MD CHEMISTRY ORDERAB LES Performing Organization Address [facility]/[place] Co de Phone Number [facility] [place] [address] * Magnesium (03/18/2017 9:36 AM EDT) Magnesium 0.77 0.69 - 1.07 mmol/L [facility] Blood specimen (specimen) 03/18/2017 9:36 AM EDT 03/18/2017 9:46 AM EDT Narrative Resulting Agency Comment Spec In Lab Tal Eagle MD CHEMISTRY ORDERAB LES Performing Organization Address [facility]/[place] Co de Phone Number [facility] [place] [address] * (ABNORMAL) Comprehensive metabolic panel (non-fasting) (03/18/2017 9:36 AM EDT) Pathologist [facility] Glucose 116 65 - 199 mg/dL [facility] Comment:Diabetes: >=200 mg/d L plus symptoms Blood Urea Nitrogen 27(H) 10 - 20 mg/dL [facility] Creatinine 1.52(H) 0.80 - 1.50 mg/dL [facility] [...] questions. Chloride 101 98 - 107 mmol/L [facility] Carbon Dioxide 27 22 - 31 mmol/L [facility] Anion Gap 13 5 - 15 mmol/L [facility] Calcium 9.8 8.5 - 10.5 mg/dL [facility] Protein, Total 7.7 6.1 - 8.0 gm/dL [facility] Albumin 4.3 3.2 - 5.2 gm/dL [facility] Aspartate Aminotransferase 17 0 - 39 unit/L [facility] Alanine Aminotransferase 17 0 - 55 unit/L [facility] Alkaline Phosphatase 65 40 - 120 unit/L [facility] Bilirubin, Total 2.4(H) 0.2 - 1.3 mg/dL [facility] Est Glomerular Filtration Rate 46(L) >=60 [facility] Comment: This [...] the following links into your internet browser. [email or web address] Blood specimen (specimen) 03/18/2017 9:36 AM EDT 03/18/2017 9:46 AM EDT Narrative Resulting Agency Comment Spec In Lab Tal Eagle MD CHEMISTRY ORDERAB LES [facility] [place] [address] * Cholesterol, total (03/18/2017 9:36 AM EDT) Cholesterol, Total 150 <=239 mg/dL [facility] Lipid Interpretation See Note [facility] Comment: Lipid management should be guided by a patient? s ASCVD risk, goals and preferences. ACC/AHA Guidelines recommend high intensity statin if clinical ASCVD or LDL greater than or equal to 190 mg/dL. [email or web address] Adults aged 40-75 with LDL 70-189 mg/dL should have their 10 year ASCVD risk estimated with the ACC/AHA ASCVD risk estimator jewelry http://tools.acc.org/NDCWM-Wqon-Ikilzcqmr/ Statin should be discussed if risk greater [...] CHEMISTRY ORDERAB LES [facility] [place] [address] * BKV Quant Blood (03/18/2017 9:36 AM EDT) BKV Blood Result Not Detected [facility] BKV Blood Interp BK Virus Plasma Result Interpretation Result: BK Virus not detected Specimen type: plasma Assay Range: 2.83-8.83 log copies/mL (6.8x10^2 - 6.8x10^8 copies/mL) Methods: Quantitative real-time polymerase chain reaction (PCR) of viral DNA isolated from plasma was performed using [employer] (formerly, [employer]) BKV analyte-specific reagents and the Applied CellControl 7500 FAST Real-Time PCR System. In addition, [...] Advanced Technology (CGAT) Laboratory at [facility] It has not been cleared or approved by the FDA. The laboratory is regulated under CLIA as qualified to perform high-complexity testing. This test is used for clinical purposes. It should not be regarded as investigational or for research. [facility] Comment: [VERIFIED DATE]03.26.17 Verified By:Bryan PhD, Sreedhar Bell Molecular Pathologist (Electronic Signature) Blood specimen (specimen) 03/18/2017 9:36 AM EDT 03/18/2017 10:31 AM EDT Narrative Resulting Agency Comment Spec In Lab Tal Eagle MD MOLECULAR ORDERAB LES [facility] [place] [address] documented in this encounter Visit Diagnoses Diagnosis Kidney replaced by transplant documented in this encounter Care Teams Associate Director Career Services Relationship Specialty Start Date End Date Urbano Denis DO [address] [place] [address] PCP - General 09/03/12 03/17/22 Ruchi Valles RN Nurse Clinic Transplant Surgery 07/30/15 documented as of this encounter
--- OUTSIDE RECORDS SUMMARY | 2024-05-16 17:28 | XMS_ITS | Encounter Summary ---
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 This test was developed and its performance characteristics determined by [facility]. It has not been cleared [...] MD CHEMISTRY ORDERAB LES [facility] [place] [id number] documented in this encounter Visit Diagnoses Not on filedocumented in this encounter Care Teams Food Mixer Repairer Relationship Specialty Start Date End Date Urbano Denis DO [address] [place] [address] PCP - General 09/03/12 03/17/22 Ruchi Valles RN Nurse Clinic Transplant Surgery 07/30/15 documented as of this encounter
--- OUTSIDE RECORDS SUMMARY | 2024-05-16 17:28 | XMS_ITS | Encounter Summary ---
Author Organization [facility] [place] [address] Care Team Providers Care Refractory Worker Name Role Phone AdeelUrbano toscano Primary Care Provider [phone] Reason for Visit * Reason Onset Date Comments Medication Refill 12/03/2016 Encounter Details Date Type Department Care Team (Late st Contact Info) Description 12/03/2016 Refill [place] [address] Samia Escalante, RN Social History [...] 11:00 AM EST Visit (TeleHealth) Cardiology at [address] [phone] Byron Brown MD [facility] [place] [address] 07/14/2024 10:00 AM EST Hospital Encounter Non-Invasive [place] [address] Arrived documented as of this encounter Goals [...] on filedocumented in this encounter Care Teams Refractory Worker Relationship Specialty Start Date End Date Urbano Denis DO [address] [place] [address] PCP - General 09/03/12 03/17/22 Ruchi Valles RN Nurse Clinic Transplant Surgery 07/30/15 documented as of this encounter
--- OUTSIDE RECORDS SUMMARY | 2024-05-16 17:28 | XMS_ITS | Encounter Summary ---
Author Organization [facility] [place] [address] Care Team Providers Care Egg Worker Name Role Phone Adeel Urbano KIRBY Primary Care Provider [phone] Encounter Details Date Type Department Care Team (Latest Contact Info) Description 06/04/2017 - 06/04/2017 11:59 PM EST Hospital Encounter Radiology Library at [facility] [place] [address] Breezy Dale MD [facility] [place] [address] Discharge Disposition: Home Social History Tobacco Use [...] EST TH Visit (TeleHealth) Cardiology at [address] [phone] Byron Brown MD [facility] [place] [address] 07/14/2024 10:00 AM EST Hospital Encounter Non-[place] [phone] Arrived documented as of this encounter Goals Goal Patient Goal Type Associated Problems Recent Progress Patient-Stated? Author [place] Home Medication Compliance and Understanding Patient Facing [...] DX Knee (06/04/2017 12:00 AM EST) Narrative [facility] - 09/16/2017 9:57 AM EDT This exam is for storage only and is auto-finalizing. Breezy Dale MD IMG FILM LIBRARY OR DERABLES [place], [place] documented in this encounter Visit Diagnoses Not on filedocumented in this encounter Care Teams Egg Worker Relationship Specialty Start Date End Date Urbano Denis DO [address] [place] [address] PCP - General 09/03/12 03/17/22 Ruchi Valles RN Nurse Clinic Transplant Surgery 07/30/15 documented as of this encounter
--- OUTSIDE RECORDS SUMMARY | 2024-05-16 17:28 | XMS_ITS | Encounter Summary ---
Author Organization [facility] [place] [address] Care Team Providers Care Employer Relations Representative Name Role Phone AdeelUrbano boland Primary Care Provider Encounter Details Date Type Department Care Team (Late st Contact Info) Description 12/11/2016 Notes Only [place] [address] Joanne Nogueira CMA Social History Tobacco Use [...] ?? Insurance: [employer] ?? Phone: ?? Circular Knitter Helper: [employer] ?? Reference #: [id number] ?? Outcome: DENIED documented in this encounter Plan of Treatment Upcoming Encounters Date Type Department Care Team (Late st Contact Info) Description 06/22/2024 11:00 AM EST TH Visit (TeleHealth) Cardiology at [address] [phone] Byron Brown MD [facility] CARDIOLOGY [place], [place] [phone] 07/14/2024 10:00 AM EST Hospital Encounter Non-[place] [address] Arrived documented as of this [...] on filedocumented in this encounter Care Teams Employer Relations Representative Relationship Specialty Start Date End Date Urbano Denis DO [address] [place] [address] PCP - General 09/03/12 03/17/22 Ruchi Valles RN Nurse Clinic Transplant Surgery 07/30/15 documented as of this encounter
--- OUTSIDE RECORDS SUMMARY | 2024-05-16 17:28 | XMS_ITS | Encounter Summary ---
Author Organization [facility] Address [facility] [place] [address] Care Team Providers Care Cutter Grinder Operator Name Role Phone Adeel Urbano KIRBY Primary Care Provider [phone] Reason for Visit * Reason Comments Kidney Transplant Follow-up Immunotherapy Encounter Details Date Type Department Care Team (Latest Contact Info) Description 03/18/2017 10:20 AM EDT Office Visit Solid Organ [place] [address] [facility] [address] [place] [address] Kidney replaced by transplant; Aftercare following organ [...] Eagle MD - 03/18/2017 10:20 AM EDT [facility] Transplant Nephrology Follow Up ? Date: 03/18/2017 [...] for diabetics, every 5 for non diabetics [place] kidney ultrasound looking for renal cell CA, [...] Office Visit from 03/18/2017 in Transplant at [place] Weight - Scale 100.3 kg (221 lb [...] UA Latest Ref Range: Clear Clear Spec Mcalister UA Latest Ref Range: 1.002 - 1.030 [...] 11:00 AM EST Visit (TeleHealth) Cardiology at [address] [id number] [facility] [place] [address] 07/14/2024 10:00 AM EST Hospital Encounter Non-[place]vasive [place] [phone] Arrived documented as of this encounter Goals Goal Patient Goal Type Associated Problems Recent Progress Patient-Stated? Author DH [employer] Medication Compliance and Understanding Patient Facing Action [...] indicated. Urobilinogen, Urine Dipstick 2.0(A) Normal mg/dL [facility] pH, Urn (dipstick) 6.0 5.0 - 8.0 [facility] Blood, Urine Dipstick Negative Negative mg/dL [facility] Ketone, Urine Dipstick Negative Negative mg/dL [facility] Nitrite, Urine Dipstick Negative Negative [facility] Leukocytes, Urine Dipstick Negative Negative [facility]AT[facility] Appearance, Urine Dipstick Clear Clear [facility] Specific Mcalister Urine Automated 1.026 1.002 - 1.030 [facility] Color, Urine Dipstick Yellow Yellow [facility] RBC, Urine 2 0 - 3 /HPF [facility] WBC, Urine Not Present 0 - 3 /HPF [facility] Bacteria, Urine Rare(A) None /HPF [facility] Reflex to Culture No [facility] Urine specimen obtained by clean catch procedure (specimen) 03/18/2017 9:38 AM EDT 03/18/2017 9:52 AM EDT Narrative Resulting Agency Comment Spec In Lab Tal Eagle MD URINE ORDERABLES Performing Organization Address [facility] [place] [address] * (ABNORMAL) Protein/Creatinine Ratio, urine (03/18/2017 9:38 AM EDT) Creatinine, Urine 154 mg/dL [facility] Protein, Urine 32(H) 0 - 12 mg/dL [facility] Protein / Creatinine Ratio, Urine 0.2 ratio [facility] Urine specimen (specimen) 03/18/2017 9:38 AM EDT 03/18/2017 9:51 AM EDT Narrative Resulting Agency Comment Spec In Lab Tal Eagle MD URINE ORDERABLES Performing Organization Address City/[facility]/ZIP Co de Phone Number [facility] [place] [address] * Gold Tube HOLD (03/18/2017 9:36 AM EDT) Gold Hold Sample in lab. [facility] Blood specimen (specimen) 03/18/2017 9:36 AM EDT 03/18/2017 9:46 AM EDT Tal Eagle MD CHEMISTRY ORDERAB LES Performing Organization Address City/[facility]/ZIP Co de Phone Number [facility] [place] [address] * Lavender Tube HOLD (03/18/2017 9:36 AM EDT) Lavender Hold Sample in lab. [facility] Blood specimen (specimen) 03/18/2017 9:36 AM EDT 03/18/2017 9:46 AM EDT Tal Eagle MD HEMATOLOGY ORDERA BLES Performing Organization Address [facility]/ZIP Co de Phone Number [facility] [place] [address] * (ABNORMAL) Uric acid (03/18/2017 9:36 AM EDT) Uric Acid 9.3(H) 3.5 - 8.5 mg/dL [facility] Blood specimen (specimen) 03/18/2017 9:36 AM EDT 03/18/2017 9:46 AM EDT Narrative Resulting Agency Comment Spec In Lab Tal Eagle MD CHEMISTRY ORDERAB LES Performing Organization Address City/[facility]/ZIP Co de Phone Number [facility] [place] [address] * Tacrolimus level (03/18/2017 9:36 AM EDT) Tacrolimus 4.4 ng/mL [facility] Comment: Trough therapeutic: ??5-15 ng/mL Performed by ultra-performance liquid chromatography tandem mass spectrometry (UPLCMS/MS). This test was developed and its performance characteristics determined by [facility]. It has not been cleared [...] MD CHEMISTRY ORDERAB LES Performing Organization Address [facility] Co de Phone Number [facility] [place] [address] * Reticulocyte Count (03/18/2017 9:36 AM EDT) Reticulocyte % 2.0 0.7 - 2.6 % [facility] Retic Abs # 0.110 0.030 - 0.120 x10(6)/mcL [facility] Immature Retic% 11.0 0.0 - 15.6 % [facility] Reticulated Hgb 36.1 31.3 - 40.2 pg [facility] Blood specimen (specimen) 03/18/2017 9:36 AM EDT 03/18/2017 9:46 AM EDT Narrative Resulting Agency Comment Spec In Lab Tal Eagle MD HEMATOLOGY ORDERA BLES Performing Organization Address [facility]/ZIP Co de Phone Number [facility] [place] [address] * Phosphorus (03/18/2017 9:36 AM EDT) Phosphorus 2.6 2.5 - 4.5 mg/dL [facility] Blood specimen (specimen) 03/18/2017 9:36 AM EDT 03/18/2017 9:46 AM EDT Narrative Resulting Agency Comment Spec In Lab Tal Eagle MD CHEMISTRY ORDERAB LES Performing Organization Address City/[facility]/ZIP Co de Phone Number [facility] [place] [address] * Magnesium (03/18/2017 9:36 AM EDT) Pathologist [facility] Magnesium 0.77 0.69 - 1.07 mmol/L [facility] Blood specimen (specimen) 03/18/2017 9:36 AM EDT 03/18/2017 9:46 AM EDT Narrative Resulting Agency Comment Spec In Lab Tal Eagle MD CHEMISTRY ORDERAB LES Performing Organization Address [facility] Co de Phone Number [facility] [place] [address] * (ABNORMAL) Comprehensive metabolic panel (non-fasting) (03/18/2017 9:36 AM EDT) [facility] Glucose 116 65 - 199 mg/dL [facility] Comment:Diabetes: >=200 mg/d L plus symptoms Blood Urea Nitrogen 27(H) 10 - 20 mg/dL [facility] Creatinine 1.52(H) 0.80 - 1.50 mg/dL [facility] [...] questions. Chloride 101 98 - 107 mmol/L [facility] Carbon Dioxide 27 22 - 31 mmol/L [facility] Anion Gap 13 5 - 15 mmol/L [facility] Calcium 9.8 8.5 - 10.5 mg/dL [facility] Protein, Total 7.7 6.1 - 8.0 gm/dL [facility] Albumin 4.3 3.2 - 5.2 gm/dL [facility] Aspartate Aminotransferase 17 0 - 39 unit/L [facility] Alanine Aminotransferase 17 0 - 55 unit/L [facility] Alkaline Phosphatase 65 40 - 120 unit/L [facility] Bilirubin, Total 2.4(H) 0.2 - 1.3 mg/dL [facility] Est Glomerular Filtration Rate 46(L) >=60 [facility] Comment: This [...] the following links into your internet browser. [email or web address] Blood specimen (specimen) 03/18/2017 9:36 AM EDT 03/18/2017 9:46 AM EDT Narrative Resulting Agency Comment Spec In Lab Tal Eagle MD CHEMISTRY ORDERAB LES [facility] [place] [address] * Cholesterol, total (03/18/2017 9:36 AM EDT) Cholesterol, Total 150 <=239 mg/dL [facility] Lipid Interpretation See Note [facility] Comment: Lipid management should be guided by a patient? s ASCVD risk, goals and preferences. ACC/AHA Guidelines recommend high intensity statin if clinical ASCVD or LDL greater than or equal to 190 mg/dL. [email or web address] Adults aged 40-75 with LDL 70-189 mg/dL should have their 10 year ASCVD risk estimated with the ACC/AHA ASCVD risk estimator project manager http://tools.acc.org/SIRYA-Vebm-Xjtdvkjbi/ Statin should be discussed if risk greater [...] CHEMISTRY ORDERAB LES [facility] [place] [address] * BKV Quant Blood (03/18/2017 9:36 AM EDT) BKV Blood Result Not Detected [facility] BKV Blood Interp BK Virus Plasma Result Interpretation Result: BK Virus not detected Specimen type: plasma Assay Range: 2.83-8.83 log copies/mL (6.8x10^2 - 6.8x10^8 copies/mL) Methods: Quantitative real-time polymerase chain reaction (PCR) of viral DNA isolated from plasma was performed using [employer] (formerly, Flex[employer]) BKV analyte-specific reagents and the Applied Biosystems [...] its performance characteristics determined by the [facility] [employer] [facility] at [facility]. It has not been cleared or approved by the FDA. The laboratory is regulated under CLIA as qualified to perform high-complexity testing. This test is used for clinical purposes. It should not be regarded as investigational or for research. [facility] Comment: [VERIFIED DATE]03.26.17 Verified By:Bryan Hernandez, Sreedhar Bell Molecular Pathologist (Electronic Signature) Blood specimen (specimen) 03/18/2017 9:36 AM EDT 03/18/2017 10:31 AM EDT Narrative Resulting Agency Comment Spec In Lab Tal Eagle MD MOLECULAR ORDERAB LES [facility] [place] [address] documented in this encounter Visit Diagnoses Diagnosis Kidney replaced by transplant Aftercare following organ transplant Prophylactic immunotherapy Need for prophylactic immunotherapy documented in this encounter Care Teams Cutter Grinder Operator Relationship Specialty Start Date End Date Urbano Denis DO [address] [place] [address] PCP - General 09/03/12 03/17/22 Ruchi Valles RN Nurse Clinic Transplant Surgery 07/30/15 documented as of this encounter
--- OUTSIDE RECORDS SUMMARY | 2024-05-16 17:28 | XMS_ITS | Encounter Summary ---
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 ; Vitamin [...] EST TH Visit (TeleHealth) Cardiology at [address] [phone] Byron Brown MD [facility] [address] 07/14/2024 10:00 AM EST Hospital Encounter Non-Invasive [place] [address] Arrived documented as of this encounter Goals [...] HEMOGLOBIN A1C STAT 09/15/2016 9:38 AM EDT 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 Kidney replaced [...] [place] [facility] Appearance, Urine Dipstick Clear Clear [facility] Specific [place] Urine Automated 1.016 1.002 - 1.030 [facility] Color, Urine Dipstick Yellow Yellow [facility] RBC, Urine 1 0 - 3 /HPF [facility] WBC, Urine 1 0 - 3 /HPF [facility] Reflex to Culture No [facility] Urine specimen obtained by clean catch procedure (specimen) 09/15/2016 9:57 AM EDT 09/15/2016 10:07 AM EDT Narrative Resulting Agency Comment Spec In Lab Tal Eagle MD URINE ORDERABLES [facility] [place] [address] * (ABNORMAL) Protein/Creatinine Ratio, urine (09/15/2016 9:57 AM EDT) Creatinine, Urine 83 mg/dL [facility] Protein, Urine 14(H) 0 - 12 mg/dL [facility] Protein / Creatinine Ratio, Urine 0.2 ratio [facility] Urine specimen (specimen) 09/15/2016 9:57 AM EDT 09/15/2016 10:13 AM EDT Narrative Resulting Agency Comment Spec In Lab Tal Eagle MD URINE ORDERABLES [facility] [place] [address] * Phosphorus, urine, random (09/15/2016 9:57 AM EDT) Phosphorus, Urine 56.0 mg/dL [facility] Urine specimen (specimen) 09/15/2016 9:57 AM EDT 09/15/2016 10:13 AM EDT Narrative Resulting Agency Comment Spec In Lab Tal Eagle MD URINE ORDERABLES [facility] [place] [address] * Calcium Creatinine Ratio, random urine (09/15/2016 9:57 AM EDT) Calcium, Urine 13.0 mg/dL [facility] Creatinine, Urine 83 mg/dL [facility] Calcium / Creatinine Ratio, Urine 0.16 ratio [facility] Urine specimen (specimen) 09/15/2016 9:57 AM EDT 09/15/2016 10:13 AM EDT Narrative Resulting Agency Comment Spec In Lab Tal Eagle MD URINE ORDERABLES [facility] [place] [address] * BK Quant Blood Result (09/15/2016 9:38 AM EDT) BKV Blood Result Not Detected [facility] BKV Blood Interp BK Virus Plasma Result Interpretation Result: BK Virus not detected Specimen type: plasma Assay Range: 2.83-8.83 log copies/mL (6.8x10^2 - 6.8x10^8 copies/mL) Methods: Quantitative real-time polymerase chain reaction (PCR) of viral DNA isolated from plasma was performed using [employer] (formerly, [employer]) BKV analyte-specific reagents and the Applied Beem 7500 FAST Real-Time PCR System. In addition, [...] be regarded as investigational or for research. [facility] Comment: [VERIFIED DATE]09.16.16 Verified By:Jimmy Gleason (Electronic Signature) Blood specimen (specimen) 09/15/2016 9:38 AM EDT 09/15/2016 12:42 PM EDT Narrative Resulting Agency Comment Spec In Lab Tal Eagle MD HEMATOLOGY ORDERA BLES [facility] [place] [address] * Differential, Automated (09/15/2016 9:38 AM EDT) [facility] Neutrophil % 61.7 % [facility] Neutrophil Absolute 3.73 1.70 - 6.10 x10(3)/[facility] Lymph % 25.6 % [facility] Lymphocytes Abs 1.6 0.9 - 3.2 x10(3)/[facility] Monocyte % 8.4 % [facility] Monocyte Abs 0.5 0.3 - 0.9 x10(3)/[facility] Eos % 3.1 % [facility] Eosinophils Abs 0.2 0.0 - 0.4 x10(3)/[facility] Basophil % 1.0 % [facility] Baso Absolute 0.1 0.0 - 0.1 x10(3)/[facility] Immature Gran % 0.20 % [facility] Comment: Immature granulocytes(IG's)percentage and absolute count will include metamyelocytes, myelocytes, and promyelocytes. Blood smears from CBCs yielding IG's will be scanned manually for concordance. If this scan disagrees with the automated IG or if promyelocytes are noted, a manual differential will be performed. Immature Gran Absolute 0.01 0.00 - 0.04 x10(3)/[facility] Blood specimen (specimen) 09/15/2016 9:38 AM EDT 09/15/2016 9:44 AM EDT Narrative Resulting Agency Comment Spec In Lab Tal Eagle MD HEMATOLOGY ORDERA BLES [facility] [place] [address] * Hemogram (09/15/2016 9:38 AM EDT) White Blood Cell 6.0 4.0 - 9.5 x10(3)/[facility] Red Blood Cell 5.05 4.58 - 5.54 x10(6)/[facility] Hemoglobin 15.7 13.7 - 16.5 gm/dL [facility] Hematocrit 44.2 40.5 - 48.5 % [facility] Mean Cell Volume 87.5 82.9 - 93.1 fL [facility] Mean Cell Hemoglobin 31.1 27.5 - 32.1 pg [facility] Mean Cell Hemoglobin Concentration 35.5 32.0 - 35.7 gm/dL [facility] Platelet 238 145 - 357 x10(3)/[facility] RDW Standard Deviation 39.8 36.0 - 45.0 [facility] RDW coefficient of variation 12.4 11.4 - 13.8 % [facility] Mean Platelet Volume 9.2 7.6 - 12.9 [facility] NRBC% auto 0.0 % [facility] NRBC Absolute 0.000 0.000 - 0.000 x10(3)/[facility] Blood specimen (specimen) 09/15/2016 9:38 AM EDT 09/15/2016 9:44 AM EDT Narrative Resulting Agency Comment Spec In Lab Tal Eagle MD HEMATOLOGY ORDERA BLES Performing Organization Address City/State/[facility] Co de Phone Number [facility] [place] [address] * (ABNORMAL) Vitamin D, 25-Hydroxy (09/15/2016 9:38 AM EDT) Vitamin D Total 25 OH 16(L) 30 - 100 ng/mL [facility] Comment: Deficient <10 ng/mL Insufficient 10 to 29 ng/mL Sufficient 30 to 100 ng/mL Potential Intoxication >100 ng/mL According to the [place] National Osteoporosis Foundation, Vitamin D concentrations >30 ng/mL are sufficient to protect bone health. ??The National Kidney Foundation has similarly stated that patients with Vitamin D concentrations <30ng/mL should be considered to be insufficient or deficient. http://Qriously.FireDrillMe/DHMCnatlkidneyfoundation http://Nutshell/DHMCVitD The IDS iSYS Vitamin D Immunoassay detects both 25-OH Vitamin D2 and 25-OH Vitamin D3, but only a total Vitamin D concentration is reported. Blood specimen (specimen) 09/15/2016 9:38 AM EDT 09/15/2016 12:08 PM EDT Narrative Resulting Agency Comment Spec In Lab Tal Eagle MD CHEMISTRY ORDERAB LES Performing Organization Address [facility] Co de Phone Number [facility] [place] [address] * Uric acid (09/15/2016 9:38 AM EDT) Uric Acid 7.7 3.5 - 8.5 mg/dL [facility] Blood specimen (specimen) 09/15/2016 9:38 AM EDT 09/15/2016 9:44 AM EDT Narrative Resulting Agency Comment Spec In Lab Tal Eagle MD CHEMISTRY ORDERAB LES Performing Organization Address [facility] de Phone Number [facility] [place] [address] * Tacrolimus level (09/15/2016 9:38 AM EDT) Tacrolimus 3.4 ng/mL [facility] Comment: Trough therapeutic: ??5-15 ng/mL Performed by ultra-performance liquid chromatography tandem mass spectrometry (UPLCMS/MS). Blood specimen (specimen) 09/15/2016 9:38 AM EDT 09/15/2016 10:07 AM EDT Narrative Resulting Agency Comment Spec In Lab Tal Eagle MD CHEMISTRY ORDERAB LES Performing Organization Address [facility] Co de Phone Number [facility] [place] [address] * PTH (09/15/2016 9:38 AM EDT) Parathyroid Hormone 36 15 - 65 pg/mL [facility] Blood specimen (specimen) 09/15/2016 9:38 AM EDT 09/15/2016 9:44 AM EDT Narrative Resulting Agency Comment Spec In Lab Tal Eagle MD CHEMISTRY ORDERAB LES Performing Organization Address City/[facility] Co de Phone Number [facility] [place] [address] * Phosphorus (09/15/2016 9:38 AM EDT) Phosphorus 3.1 2.5 - 4.5 mg/dL [facility] Blood specimen (specimen) 09/15/2016 9:38 AM EDT 09/15/2016 9:44 AM EDT Narrative Resulting Agency Comment Spec In Lab Tal Eagle MD CHEMISTRY ORDERAB LES Performing Organization Address City/[facility]/ZIP Co de Phone Number [facility] [place] [address] * Magnesium (09/15/2016 9:38 AM EDT) Magnesium 0.77 0.69 - 1.07 mmol/L [facility] Blood specimen (specimen) 09/15/2016 9:38 AM EDT 09/15/2016 9:44 AM EDT Narrative Resulting Agency Comment Spec In Lab Tal Eagle MD CHEMISTRY ORDERAB LES Performing Organization Address [facility]/ZIP Co de Phone Number [facility] [place] [address] * (ABNORMAL) Lipid Panel (09/15/2016 9:38 AM EDT) Cholesterol, Total 123 <=239 mg/dL [facility] Triglyceride 106 <=199 mg/dL [facility] HDL Cholesterol 38(L) >=40 mg/dL [facility] LDL Cholesterol 64 <=190 mg/dL [facility] Cholesterol/HDL Ratio 3.2 ratio [facility] Lipid Interpretation See Note [facility] Comment: Lipid management should be guided by a patient? s ASCVD risk, goals and preferences. ACC/AHA Guidelines recommend high intensity statin if clinical ASCVD or LDL greater than or equal to 190 mg/dL. http://circ.ahajournals.org/content/early/.cir.0002465790.79003.7a Adults aged 40-75 with LDL 70-189 mg/dL should have their 10 year ASCVD risk estimated with the ACC/AHA ASCVD risk fabric and accessories estimator http://tools.acc.org/EFWBG-Bdvt-Ttcxmwlyv/ Statin should be discussed if risk greater [...] MD CHEMISTRY ORDERAB LES Performing Organization Address [facility] Co de Phone Number [facility] [place] [address] * Lavender Tube HOLD (09/15/2016 9:38 AM EDT) Lavender Hold Sample in lab. [facility] Blood specimen (specimen) 09/15/2016 9:38 AM EDT 09/15/2016 9:44 AM EDT Tal Eagle MD HEMATOLOGY ORDERA BLES Performing Organization Address [facility] Co de Phone Number [facility] [place] [address] * (ABNORMAL) Hemoglobin A1c (09/15/2016 9:38 AM EDT) Hemoglobin A1c 6.9(H) 4.3 - 5.6 % [facility] Comment: Reference Range: [...] 1, S67-74 Estimated Average Glucose 151 mg/dL [facility] Comment: eAG equivalents for HbA1c percentages: HbA1c(%) ?eAG(mg/dL) 6.0 ?126 6.5 ?140 7.0 ?154 7.5 ?169 8.0 ?183 8.5 ?197 9.0 ?212 9.5 ?226 10.0 ? 240 Limitations: The eAG calculation has not been validated on women, individuals below 18 years old and above 70 years old, and individuals with hemoglobinopathies. Additional resources are available on the ADA website: http://Qriously.com/DHMCadacalc Harjeet MENDOSA, Chanel J, Philip R, et al. ??Translating the A1C assay into estimated average glucose values. ??Diabetes Care 2008:31(8):5418-5324. Blood specimen (specimen) 09/15/2016 9:38 AM EDT 09/15/2016 9:44 AM EDT Narrative Resulting Agency Comment Spec In Lab Tal Eagle MD CHEMISTRY ORDERAB LES [facility] [place] [address] * Gold Tube HOLD (09/15/2016 9:38 AM EDT) Gold Hold Sample in lab. [facility] Blood specimen (specimen) 09/15/2016 9:38 AM EDT 09/15/2016 9:44 AM EDT Tal Eagle MD CHEMISTRY ORDERAB LES [facility] [place] [address] * (ABNORMAL) CMP w/fasting Glucose (09/15/2016 9:38 AM EDT) [facility] Glucose Fasting 130(H) 65 - 99 mg/dL [facility] [...] of Diabetes Mellitus, Position Statement from the [place] Diabetes Association. ??Diabetes Care, Volume 33, Supplement [...] mmol/L [facility] Calcium 9.7 8.5 - 10.5 mg/dL [facility] Protein, Total 7.5 6.1 - 8.0 gm/dL [facility] Albumin 4.0 3.2 - 5.2 gm/dL [facility] Aspartate Aminotransferase 15 0 - 39 unit/L [facility] Alanine Aminotransferase 16 0 - 55 unit/L [facility] Alkaline Phosphatase 62 40 - 120 unit/L [facility] Bilirubin, Total 1.2 0.2 - 1.3 mg/dL [facility] Bilirubin, Direct 0.3 0.0 - 0.3 mg/dL [facility] Est Glomerular Filtration Rate 55(L) >=60 [facility] Comment: [...] the following links into your internet browser. http://Nutshell/DHnkdep http://Nutshell/DHMCnkf Blood specimen (specimen) 09/15/2016 9:38 AM EDT 09/15/2016 9:44 AM EDT Narrative Resulting Agency Comment Spec In Lab Tal Eagle MD CHEMISTRY ORDERAB LES [facility] [place] [address] * (ABNORMAL) 1,25-dihydroxycholecalciferol (09/15/2016 9:38 AM EDT) Vit D 1,25 Dihydroxy (NOVEMBER) 65(H) 18 - 64 pg/mL [facility] Comment: ADDITIONAL INFORMATION This test was developed and its performance characteristics determined by [facility] in a manner consistent with CLIA requirements. This test has not been cleared or approved by the U.S. Food and Drug Administration. Test Performed by: [facility] - [address] [address] Blood specimen (specimen) 09/15/2016 9:38 AM EDT 09/15/2016 11:07 AM EDT Narrative Resulting Agency Comment Spec In Lab Tal Eagle MD LAB SEND OUT ORDE RABLES Performing Organization Address [facility]/ZIP Co de Phone Number [facility] [place] [address] * U24 Hrs and Volume (09/15/2016 6:00 AM EDT) Hours Collected 24 hour(s) [facility] Total Volume 1,500 mL [facility] Urine specimen (specimen) 09/15/2016 6:00 AM EDT 09/15/2016 11:16 AM EDT Narrative Resulting Agency Comment Spec In Lab Tal Eagle MD CHEMISTRY ORDERAB LES Performing Organization Address [facility]/ZIP Co de Phone Number [facility] [place] [address] * Uric acid, urine, 24 hour (09/15/2016 6:00 AM EDT) U24 Uric Conc 38.4 mg/dL [facility] Uric Acid, 24 Hour Urine 0.58 0.25 - 0.80 gm/24hr [facility] Urine specimen (specimen) 09/15/2016 6:00 AM EDT 09/15/2016 11:16 AM EDT Narrative Resulting Agency Comment Spec In Lab Tal Eagle MD URINE ORDERABLES Performing Organization Address [facility] Co de Phone Number [facility] [place] [address] * (ABNORMAL) Protein, urine, 24 hour (09/15/2016 6:00 AM EDT) Protein Concentration, U24 14 <=80 mg/dL [facility] Protein, 24 Hour Urine 0.21(H) <=0.15 gm/24hr [facility] Urine specimen (specimen) 09/15/2016 6:00 AM EDT 09/15/2016 11:16 AM EDT Narrative Resulting Agency Comment Spec In Lab Tal Eagle MD URINE ORDERABLES Performing Organization Address [facility] Co de Phone Number [facility] [place] [address] * Phosphorus, urine, 24 hour (09/15/2016 6:00 AM EDT) Phosphorus Concentration, U24 70.2 mg/dL [facility] Phosphorus, 24 Hour Urine 1.1 0.4 - 1.3 gm/24hr [facility] Urine specimen (specimen) 09/15/2016 6:00 AM EDT 09/15/2016 11:16 AM EDT Narrative Resulting Agency Comment Spec In Lab Tal Eagle MD URINE ORDERABLES Performing Organization Address City/[facility] Co de Phone Number [facility] [place] [address] * Creatinine, urine, 24 hour (09/15/2016 6:00 AM EDT) Cre Concentration, U24 113 mg/dL [facility] Creatinine, 24 Hour Urine 1.70 0.80 - 1.90 gm/24hr [facility] Urine specimen (specimen) 09/15/2016 6:00 AM EDT 09/15/2016 11:16 AM EDT Narrative Resulting Agency Comment Spec In Lab Tal Eagle MD URINE ORDERABLES Performing Organization Address [facility] Co de Phone Number [facility] [place] [address] * Creatinine Clearance, urine, 24 hour (09/15/2016 6:00 AM EDT) Creatinine Clearance, 24 Hour Urine 91 90 - 139 mL/min [facility] Cre Concentration, U24 113 mg/dL [facility] Creatinine, 24 Hour Urine 1.70 0.80 - 1.90 gm/24hr [facility] Urine specimen (specimen) 09/15/2016 6:00 AM EDT 09/15/2016 11:16 AM EDT Narrative Resulting Agency Comment Spec In Lab Tal Eagle MD URINE ORDERABLES Performing Organization Address [facility] Co de Phone Number [facility] [place] [address] * Calcium, urine, 24 hour (09/15/2016 6:00 AM EDT) Ca Concentration, U24 12.9 mg/dL [facility] Calcium, 24 Hour Urine 193.5 50.0 - 300.0 mg/24hr [facility] Comment:Reference Range: 50. 0-300.0 mg/24 hour based on diet. Urine specimen (specimen) 09/15/2016 6:00 AM EDT 09/15/2016 11:16 AM EDT Narrative Resulting Agency Comment Spec In Lab Tal Eagle MD URINE ORDERABLES Performing Organization Address [facility] Co de Phone Number [facility] [place] [address] documented in this encounter Visit Diagnoses Diagnosis S/P kidney transplant Kidney replaced by transplant Kidney replaced by transplant [facility] current use of immunosuppressive drug Vitamin D deficiency Unspecified vitamin D deficiency documented in this encounter Care Teams Adult Care Manager Relationship Specialty Start Date End Date Urbano Denis DO [address] [place] [address] PCP - General 09/03/12 03/17/22 Hai STANLEY,Ruchi Nurse Clinic Transplant Surgery 07/30/15 documented as of this encounter
--- OUTSIDE RECORDS SUMMARY | 2024-05-16 17:28 | XMS_ITS | Encounter Summary ---
Author Organization [facility] [place] [address] Care Team Providers Care Developer Prover Mechanical Name Role Phone Urbano Denis DO Primary Care Provider Encounter Details Date Type Department Care Team (Late st Contact Info) Description 01/14/2017 Telephone Solid [place] [phone] Joanne Nogueira CMA Social History Tobacco Use [...] with 3 refills, confirmed dose Invoice # [id number] * Telephone Encounter - Joanne Nogueira CMA - 01/14/2017 2:42 PM EDT Left message on refill request line asking for 90 day supply of tamsulosin 0.4mg be called into [facility]. documented in this encounter Plan of Treatment Upcoming Encounters Date Type Department Care Team (Late st Contact Info) Description 06/22/2024 11:00 AM EST TH Visit (TeleHealth) Cardiology at [address] [phone] Byron Brown MD [facility] [place] [address] 07/14/2024 10:00 AM EST Hospital Encounter Non-Invasive Cardiology Lab [place], [...] on filedocumented in this encounter Care Teams Developer [employer]ver Mechanical Relationship Specialty Start Date End Date Urbano Denis DO [address] [place] [address] [address] [facility] [address] [place] [address] PCP - General 09/03/12 03/17/22 Hai STANLEY,Ruchi Nurse Clinic Transplant Surgery 07/30/15 documented as of this encounter
--- OUTSIDE RECORDS SUMMARY | 2024-05-16 17:28 | XMS_ITS | Encounter Summary ---
[place] [address] Care Team Providers Care Biodiesel Production Associate Name Role Phone Urbano Denis DO Primary Care Provider Encounter Details Date Type Department Care Team (Latest Contact Info) Description 04/16/2017 8:42 PM EDT - 04/16/2017 11:59 PM EDT Hospital [place] [address] Discharge Disposition: Home Social History Tobacco Use [...] 11:00 AM EST Visit (TeleHealth) Cardiology at [address] [phone] Byron Brown MD [facility] [place] [address] 07/14/2024 10:00 AM EST Hospital Encounter Non-Invasive [place] [phone] Arrived documented as of this encounter Goals Goal Patient Goal Type Associated Problems Recent Progress Patient-Stated? Author [facility] Medication Compliance and Understanding Patient Facing [...] (04/16/2017 10:35 AM EDT) Tacrolimus 8.2 ng/mL [facility] Comment: Trough therapeutic: ??5-15 ng/mL Performed by ultra-performance liquid chromatography tandem mass spectrometry (UPLCMS/MS). This test was developed and its performance characteristics determined by [facility]. It has not been [...] MD CHEMISTRY ORDERAB LES [facility] [place] [address] documented in this encounter Visit Diagnoses Not on filedocumented in this encounter Care Teams Biodiesel Production Associate Relationship Specialty Start Date End Date Urbano Denis DO [address] [place] [address] PCP - General 09/03/12 03/17/22 Ruchi Valles RN Nurse Clinic Transplant Surgery 07/30/15 documented as of this encounter
--- OUTSIDE RECORDS SUMMARY | 2024-05-16 17:28 | XMS_ITS | Encounter Summary ---
[place] [address] Care Team Providers Care Practice Or Student Teacher Name Role Phone Urbano Denis DO Primary Care Provider Encounter Details Date Type Department Care Team (Latest Contact Info) Description 07/20/2017 7:32 PM EST - 07/20/2017 11:59 PM EST [place] [address] Discharge Disposition: Home Social History Tobacco Use [...] EST TH Visit (TeleHealth) Cardiology at [address] [phone] Byron Brown MD [facility] [place] [address] 07/14/2024 10:00 AM EST Hospital Encounter Non-[place]vasive [place] [phone] Arrived documented as of this encounter Goals [...] (07/20/2017 8:30 PM EST) Tacrolimus 6.4 ng/mL [facility] Comment: Trough therapeutic: ??5-15 ng/mL Performed by ultra-performance liquid chromatography tandem mass spectrometry (UPLCMS/MS). This test was developed and its performance characteristics determined by [facility]. It has not been cleared or [...] ORDERAB LES [facility] [place] [address] documented in this encounter Visit Diagnoses Not on filedocumented in this encounter Care Teams Practice Or Student Teacher Relationship Specialty Start Date End Date Urbano Denis DO [address] [place] [address] PCP - General 09/03/12 03/17/22 Ruchi Valles RN Nurse Clinic Transplant Surgery 07/30/15 documented as of this encounter
--- OUTSIDE RECORDS SUMMARY | 2024-05-16 17:28 | XMS_ITS | Encounter Summary ---
Author Organization [facility] [place] [address] Care Team Providers Care Suspension Cord Tier Name Role Phone Urbano Denis DO Primary Care Provider [phone] Encounter Details Date Type Department Care Team (Latest Contact Info) Description 11/12/2016 8:46 PM EDT - 11/12/2016 11:59 PM EDT Hospital [place] [address] Discharge Disposition: Home Social History Tobacco Use [...] EST TH Visit (TeleHealth) Cardiology at [address] [phone] Byron Brown MD [facility] [place] [address] 07/14/2024 10:00 AM EST Hospital Encounter Non-Invasive [place] [phone] Arrived documented as of this encounter Goals [...] PM EDT) Lavender Hold Sample in lab. [facility] Blood specimen (specimen) No Charge / Unknown 11/12/2016 8:52 PM EDT 11/12/2016 8:54 PM EDT Tal Eagle MD HEMATOLOGY ORDERA BLES Performing Organization Address [facility]/ZIP Co de Phone Number [facility] [place] [address] * Tacrolimus level (11/12/2016 8:52 PM EDT) Tacrolimus <3.0 ng/mL [facility] Comment: Trough therapeutic: ??5-15 ng/mL Performed by ultra-performance liquid chromatography tandem mass spectrometry (UPLCMS/MS). This test was developed and its performance characteristics determined by [facility]. It has not been cleared [...] [facility]/ZIP Co de Phone Number [facility] [place] [address] documented in this encounter Visit Diagnoses Not on filedocumented in this encounter Care Teams Suspension Cord Tier Relationship Specialty Start Date End Date Urbano Denis DO [address] [facility] 1 [place] [address] PCP - General 09/03/12 03/17/22 Ruchi Valles RN Nurse Clinic Transplant Surgery 07/30/15 documented as of this encounter
--- OUTSIDE RECORDS SUMMARY | 2024-05-16 17:28 | XMS_ITS | Encounter Summary ---
[place] [address] Care Team Providers Care Hospice Team Lead Name Role Phone Urbano Denis DO Primary Care Provider Encounter Details Date Type Department Care Team (Latest Contact Info) Description 12/18/2016 8:36 PM EDT - 12/18/2016 11:59 PM EDT Hospital [place] [address] Discharge Disposition: Home Social History Tobacco Use [...] 11:00 AM EST Visit (TeleHealth) Cardiology at [address] [phone] Byron Brown MD [facility] [place] [address] 07/14/2024 10:00 AM EST Hospital Encounter Non-[place] [phone] Arrived documented as of this encounter Goals Goal Patient Goal Type Associated Problems Recent Progress Patient-Stated? Author [facility] Medication Compliance and Understanding Patient Facing Action [...] MD HEMATOLOGY ORDERA BLES Performing Organization Address [facility] Co de Phone Number [facility] [place] [address] * Tacrolimus level (12/18/2016 1:58 PM EDT) Tacrolimus 5.9 ng/mL [facility] Comment: Trough therapeutic: ??5-15 ng/mL Performed by ultra-performance liquid chromatography tandem mass spectrometry (UPLCMS/MS). This test was developed and its performance characteristics determined by [facility]. It has not been cleared [...] CHEMISTRY ORDERAB LES Performing Organization Address [facility]/ZIP Co [place] [address] documented in this encounter Visit Diagnoses Not on filedocumented in this encounter Care Teams Hospice Team Lead Relationship Specialty Start Date End Date Urbano Denis DO [address] [place] [address] PCP - General 09/03/12 03/17/22 Ruhci Valles RN Nurse Clinic Transplant Surgery 07/30/15 documented as of this encounter
--- OUTSIDE RECORDS SUMMARY | 2024-05-16 17:28 | XMS_ITS | Encounter Summary ---
Author Organization [facility] [place] [address] Care Team Providers Care Carbon Cutter Name Role Phone Urbano Denis DO Primary Care Provider [phone] Reason for Visit * Reason Comments Skin Lesion * Consultation (Routine) - Closed Specialty Diagnoses / Procedures Referred By Humberto flor Referred To Contact Dermatology Diagnoses Atypical nevus of face Procedures Pt has another appt on 03/18/17 if you can possibly have the same day? Urbano Denis DO [address] [place] [address] [facility] Dermatology [address] [place] [address] Referral ID Status Reason Start Date Expiration Date V isits Requested Visits Authorized [id number] Closed Consult, Test & Treat [facility] 02/25/2017 02/25/2018 1 1 Encounter Details Date Type Department Care Team (Late st Contact Info) Description 03/18/2017 3:00 PM EDT Office Visit Dermatology at [facility] [address] [place] [address] Valencia Henley MD [facility] DR JEANNETTE [place] [address] Rosacea Social History Tobacco Use [...] this encounter Progress Notes * Rahel Oneil, CLINICAL QUALITY ANALYST - 03/18/2017 3:00 PM EDT DERMATOLOGY NEW [...] encounter. Valencia Henley MD Section of Dermatology [facility] Cody Bolden 03/18/2017 [id number] documented in this encounter Plan of Treatment Upcoming Encounters Date Type Department Care Team (Late st Contact Info) Description 06/22/2024 11:00 AM EST TH Visit (TeleHealth) Cardiology at [address] [phone] Byron Brown MD [facility] [place] [address] 07/14/2024 10:00 AM EST Hospital Encounter Non-Invasive [place] [phone] Arrived documented as of this encounter Goals [...] Rosacea documented in this encounter Care Teams Carbon Cutter Relationship Specialty Start Date End Date Urbano Denis DO [address] [place] [address] PCP - General 09/03/12 03/17/22 Ruchi Valles RN Nurse Clinic Transplant Surgery 07/30/15 documented as of this encounter
--- OUTSIDE RECORDS SUMMARY | 2024-05-16 17:28 | XMS_ITS | Encounter Summary ---
Author Organization [facility] [place] [address] Care Team Providers Care Toe Sewer Name Role Phone AdeelUrbano boland Primary Care Provider Reason for Visit * Reason Comments Medication Refill Encounter Details Date Type Department Care Team (Late st Contact Info) Description 07/17/2017 Refill Solid [place] [address] Que Amaro MD [facility] [place] [address] Social History Tobacco Use Types Packs/Day Years [...] EST TH Visit (TeleHealth) Cardiology at [address] [phone] Byron Brown MD [facility] [place] [address] 07/14/2024 10:00 AM [facility] Hospital Encounter Non-Invasive [place] [phone] Arrived documented as of this encounter Goals [...] on filedocumented in this encounter Care Teams Toe Sewer Relationship Specialty Start Date End Date Urbano Denis DO [address] [place] [address] [facility] 1 [place] [address] PCP - General 09/03/12 03/17/22 Ruchi Valles RN Nurse Clinic Transplant Surgery 07/30/15 documented as of this encounter
--- OUTSIDE RECORDS SUMMARY | 2024-05-16 17:28 | XMS_ITS | Encounter Summary ---
[place] [address] Care Team Providers Care Pickling Tank Operator Name Role Phone Urbano Denis DO Primary Care Provider Encounter Details Date Type Department Care Team (Late st Contact Info) Description 06/16/2017 Telephone [place] [phone] Margarette Kuhn, RN Social History Tobacco Use [...] AM EST TH Visit (TeleHealth) Cardiology at [address] [address] Byron Brown MD [facility] [place] [address] 07/14/2024 10:00 AM EST Hospital Encounter Non-Invasive [place] [address] Arrived documented as of [...] filedocumented in this encounter Care Teams Pickling Tank Operator Relationship Specialty Start Date End Date Urbano Denis DO [address] [place] [address] [address] [facility] [place] [address] PCP - General 09/03/12 03/17/22 Ruchi Valles RN Nurse Clinic Transplant Surgery 07/30/15 documented as of this encounter
--- OUTSIDE RECORDS SUMMARY | 2024-05-16 17:28 | XMS_ITS | Encounter Summary ---
Author Organization [facility] [place] [address] Care Team Providers Care Winterizer Name Role Phone Adeel Urbano KIRBY Primary Care Provider [phone] Reason for Visit * Reason Onset Date Comments Medication Refill 03/25/2017 Encounter Details Date Type Department Care Team (Late st Contact Info) Description 03/24/2017 Refill [place] [address] Tal Eagle MD [facility] [place] [address] Social History Tobacco Use Types Packs/Day Years [...] for bacterium 400-80 [facility] [place] [facility] documented in this encounter Plan of Treatment Upcoming Encounters Date Type Department Care Team (Late st Contact Info) Description 06/22/2024 11:00 AM EST TH Visit (TeleHealth) Cardiology at [address] [phone] Byron Brown MD [facility] [place] [place] [address] 07/14/2024 10:00 AM EST Hospital Encounter Non-[place] [address] Arrived documented as of this [...] on filedocumented in this encounter Care Teams Winterizer Relationship Specialty Start Date End Date Urbano Denis DO [address] [place] [address] PCP - General 09/03/12 03/17/22 Ruchi Valles RN Nurse Clinic Transplant Surgery 07/30/15 documented as of this encounter
--- OUTSIDE RECORDS SUMMARY | 2024-05-16 17:28 | XMS_ITS | Encounter Summary ---
Author Organization [facility] [place] [address] Care Team Providers Care Kineseologist Name Role Phone AdeelUrbano boland Primary Care Provider [phone] Encounter Details Date Type Department Care Team (Late st Contact Info) Description 05/26/2017 [place] [phone] Luis Carpio RN Social History Tobacco Use [...] Carpio RN - 05/26/2017 11:11 AM EST Executive Personal Assistant called and spoke with Abbie from the [facility] [phone]. Abbie stated she will contact the Same Day Program to see what labs they were looking for. Luis Carpio RN-BSN Post Plasterer Spray Gun [facility] Solid Organ Transplant * Telephone Encounter - Luis Carpio RN - 05/26/2017 11:11 AM EST ----- Message from Barbara Josue sent at 05/25/2017 12:08 PM EST ----- Regarding: labs Bernadette from the same day program is looking for labs on Yash. He's there now for his procedure. Last fax said she attached labs but they weren't attached. documented in this encounter Plan of Treatment Upcoming Encounters Date Type Department Care Team (Late st Contact Info) Description 06/22/2024 11:00 AM EST TH Visit (TeleHealth) Cardiology at [address] [phone] Byron Brown MD [facility] [place] [address] 07/14/2024 10:00 AM EST Hospital Encounter Non[place] [phone] Arrived documented as of this encounter Goals Goal Patient Goal Type Associated Problems Recent Progress Patient-Stated? Author [facility] Medication Compliance and Understanding Patient Facing Action Plan On track( 017 10:41 AM EDT) Selena [place], [facility] Note: Patient Goal: Clear hepatitis C Timeframe to meet goal: within 12 weeks of therapy documented as of this encounter Visit Diagnoses Not on filedocumented in this encounter Care Teams Kineseologist Relationship Specialty Start Date End Date Urbano Denis DO [address] [place] [address] [address] [place] [address] PCP - General 09/03/12 03/17/22 Hai STANLEY,Ruchi Nurse Clinic Transplant Surgery 07/30/15 documented as of this encounter
--- OUTSIDE RECORDS SUMMARY | 2024-05-16 17:28 | XMS_ITS | Encounter Summary ---
Author Organization [facility] Address [facility] Joel [facility] [place] [address] Care Team Providers Care Public Health Physician Name Role Phone Urbano Denis DO Primary Care Provider [phone] Encounter Details Date Type Department Care Team (Late st Contact Info) Description 06/24/2017 Telephone [place] [address] [facility] [place] [address] Social History Tobacco Use Types Packs/Day Years [...] RD - 06/24/2017 9:54 AM EST This tag writer attempted to contact this patient in order to further review phosphorus-rich foods and drinks. Left a message at home phone. Patient's was already contacted by one of our nurse coordinators, but this tag writer mailed the lists of foods and drinks to patient as well. Remain available for any questions/concerns. documented in this encounter Plan of Treatment Upcoming Encounters Date Type Department Care Team (Late st Contact Info) Description 06/22/2024 11:00 AM EST TH Visit (TeleHealth) Cardiology at [address] [phone] Byron Brown MD [facility] [place] [address] 07/14/2024 10:00 AM EST Hospital Encounter Non[place] [address] Arrived documented as of this encounter Goals Goal Patient Goal Type Associated Problems Recent Progress Patient-Stated? Author [facility] Medication Compliance and Understanding Patient Facing Action Plan On track( 017 10:41 AM EDT) No Selena Cisneros, [facility] Note: Patient Goal: Clear hepatitis C Timeframe to meet goal: within 12 weeks of therapy documented as of this encounter Visit Diagnoses Not on filedocumented in this encounter Care Teams Public Health Physician Relationship Specialty Start Date End Date Urbano Denis DO [address] [place] [address] [address] [facility] 1 [place] [address] PCP - General 09/03/12 03/17/22 Ruchi Valles RN Nurse Clinic Transplant Surgery 07/30/15 documented as of this encounter
--- OUTSIDE RECORDS SUMMARY | 2024-05-16 17:28 | XMS_ITS | Encounter Summary ---
Author Organization [facility] [place] [address] Care Team Providers Care Visitor Service Assistant Name Role Phone AdeelUrbano toscano Primary Care Provider [phone] Reason for Visit * Reason Onset Date Comments Medication Refill 11/10/2016 Encounter Details Date Type Department Care Team (Late st Contact Info) Description 11/10/2016 Refill [place] [address] Samia Escalante, RN Social History [...] AM EST Visit (TeleHealth) Cardiology at [address] [phone] [facility] [address] 07/14/2024 10:00 AM EST Hospital Encounter Non-[place]vasive [place] [address] Arrived documented as of this encounter Goals [...] on filedocumented in this encounter Care Teams Visitor Service Assistant Relationship Specialty Start Date End Date Urbano Denis DO [address] [place] [address] PCP - General 09/03/12 03/17/22 Ruchi Valles RN Nurse Clinic Transplant Surgery 07/30/15 documented as of this encounter
--- OUTSIDE RECORDS SUMMARY | 2024-05-16 17:28 | XMS_ITS | Encounter Summary ---
Author Organization [facility] [place] [address] Care Team Providers Care [place] Program Coordinator Name Role Phone Adeel Urbano KIRBY Primary Care Provider Encounter Details Date Type Department Care Team (Late st Contact Info) Description 12/03/2016 Telephone [place] [phone] Smaia Escalante, RN Social History Tobacco Use Types [...] that we update his prescription with the [facility] which I have done. Pt stated understanding of plan of care. No further questions at this time. Advised to call with additional concerns. Samia Escalante, RN Post Blind Slat Stapling Machine Operator [facility] Solid Organ Transplant documented in this encounter Plan of Treatment Upcoming Encounters Date Type Department Care Team (Late st Contact Info) Description 06/22/2024 11:00 AM EST TH Visit (TeleHealth) Cardiology at [address] [phone] Byron Brown MD [facility] [place] [address] 07/14/2024 10:00 AM EST Hospital Encounter Non-Invasive [place] [phone] Arrived documented as of this encounter Goals [...] on filedocumented in this encounter Care Teams [place] Program Coordinator Relationship Specialty Start Date End Date Urbano Denis DO [address] [place] [address] PCP - General 09/03/12 03/17/22 Hai STANLEY,Ruchi Nurse Clinic Transplant Surgery 07/30/15 documented as of this encounter
--- OUTSIDE RECORDS SUMMARY | 2024-05-16 17:28 | XMS_ITS | Encounter Summary ---
Author Organization [facility] Address [facility] [place] [address] Care Team Providers Care Dairy Farmer Name Role Phone Urbano Denis DO Primary Care Provider [phone] Encounter Details Date Type Department Care Team (Late st Contact Info) Description 09/29/2016 Telephone [place] [address] Joanne Fernandes, RN [facility] [place] [address] Social History Tobacco Use Types Packs/Day Years [...] EST TH Visit (TeleHealth) Cardiology at [address] [phone] Byron Brown MD [facility] [place] [address] 07/14/2024 10:00 AM EST Hospital Encounter Non-Invasive [place] [address] Arrived documented as of this encounter Goals Goal Patient Goal Type Associated Problems Recent Progress Patient-Stated? Author [facility] Medication Compliance and Understanding Patient Facing Action Plan On track( 017 10:41 AM EDT) No Selena Cisneros, [facility] Note: Patient Goal: Clear hepatitis C Timeframe to meet goal: within 12 weeks of therapy documented as of this encounter Visit Diagnoses Not on filedocumented in this encounter Care Teams Dairy Farmer Relationship Specialty Start Date End Date Urbano Denis DO [address] [place] [address] PCP - General 09/03/12 03/17/22 Ruchi Valles RN Nurse Clinic Transplant Surgery 07/30/15 documented as of this encounter
--- OUTSIDE RECORDS SUMMARY | 2024-05-16 17:28 | XMS_ITS | Encounter Summary ---
Author Organization [facility] [place] [address] Care Team Providers Care Digital Service Engineer Name Role Phone Urbano Denis DO Primary Care Provider [phone] Encounter Details Date Type Department Care Team (Latest Contact Info) Description 05/19/2017 9:06 PM EST - 05/19/2017 11:59 PM EST Hospital [place] [address] Discharge Disposition: Home Social History Tobacco Use [...] 11:00 AM EST Visit (TeleHealth) Cardiology at [address] [phone] Byron Brown MD [facility] [place] [address] 07/14/2024 10:00 AM EST Hospital Encounter Non-[place] [address] Arrived documented as of this encounter Goals Goal Patient Goal Type Associated Problems Recent Progress Patient-Stated? Author [facility] Medication Compliance and Understanding Patient [...] (05/19/2017 11:10 AM EST) Tacrolimus 4.6 ng/mL [facility] Comment: Trough therapeutic: [...] CHEMISTRY ORDERAB LES [facility] [address] documented in this encounter Visit Diagnoses Not on filedocumented in this encounter Care Teams Digital Service Engineer Relationship Specialty Start Date End Date Urbano Denis DO [address] [place] [address] PCP - General 09/03/12 03/17/22 Ruchi Valles RN Nurse Clinic Transplant Surgery 07/30/15 documented as of this encounter
--- OUTSIDE RECORDS SUMMARY | 2024-05-16 17:28 | XMS_ITS | Encounter Summary ---
[place] [address] Care Team Providers Care Mica Plate Layer Name Role Phone Urbano Denis DO Primary Care Provider [phone] Reason for Visit * Reason Onset Date Comments Medication Refill 12/12/2016 Encounter Details Date Type Department Care Team (Late st Contact Info) Description 12/10/2016 Refill [place] [address] Joanne Nogueira CMA Social History Tobacco Use [...] - 12/12/2016 12:12 PM EDT Case # [id number] Spoke with [facility] staff, Brandee. Medicare part C paid [...] as it would be much easierthan calling [facility] every month. mycophenylate Prograf Flomax Calcitriol K-Phos documented in this encounter Plan of Treatment Upcoming Encounters Date Type Department Care Team (Late st Contact Info) Description 06/22/2024 11:00 AM EST Visit (TeleHealth) Cardiology at [address] [address] [facility] [place] [address] 07/14/2024 10:00 AM EST Hospital Encounter Non-Invasive [place] [address] Arrived documented as of this encounter Goals [...] on filedocumented in this encounter Care Teams Mica Plate Layer Relationship Specialty Start Date End Date Urbano Denis DO [address] [place] [address] PCP - General 09/03/12 03/17/22 Ruchi Valles RN Nurse Clinic Transplant Surgery 07/30/15 documented as of this encounter
--- OUTSIDE RECORDS SUMMARY | 2024-05-16 17:29 | XMS_ITS | Encounter Summary ---
[place] [address] Care Team Providers Care Long Term Care Phlebotomist Name Role Phone AdeelUrbano toscano Primary Care Provider Reason for Visit * Reason Onset Date Comments Medication Refill 06/18/2016 Encounter Details Date Type Department Care Team (Late st Contact Info) Description 06/18/2016 Ref[place] [address] Joanne Nogueira CMA Social History Tobacco Use [...] 8:43 AM EST This prescription destroyed by CBL[employer] in the presents of Martina Quezada LPN documented in this encounter Plan of Treatment Upcoming Encounters Date Type Department Care Team (Late st Contact Info) Description 06/22/2024 11:00 AM EST TH Visit (TeleHealth) Cardiology at [address] [address] Byron Brown MD [facility] [place] [address] 07/14/2024 10:00 AM EST Hospital Encounter Non[place] [address] Arrived documented as of this encounter Visit Diagnoses Not on filedocumented in this encounter Care Teams Long Term Care Phlebotomist Relationship Specialty Start Date End Date Urbano Denis DO [address] [place] [address] [address] [place] [address] PCP - General 09/03/12 03/17/22 Hai STANLEY,Ruchi Nurse Clinic Transplant Surgery 07/30/15 documented as of this encounter
--- OUTSIDE RECORDS SUMMARY | 2024-05-16 17:29 | XMS_ITS | Encounter Summary ---
Author Organization [facility] [place] [address] Care Team Providers Care Home Health Clinical Liaison Name Role Phone Adeel Urbano KIRBY Primary Care Provider [phone] Encounter Details Date Type Department Care Team (Late st Contact Info) Description 08/06/2016 Orders Only [place] [address] Dominique Jackson RN Kidney transplant [...] EST TH Visit (TeleHealth) Cardiology at [address] [address] Byron Brown MD [facility] [place] [address] 07/14/2024 10:00 AM EST Hospital Encounter Non-[place] [address] Arrived documented as of this encounter Results * (ABNORMAL) Protein/Creatinine Ratio, urine (08/12/2016 9:50 AM EST) Creatinine, Urine 132 mg/dL [facility] Protein, Urine 29(H) 0 - 12 mg/dL [facility] Protein / Creatinine Ratio, Urine 0.2 ratio [facility] Urine specimen (specimen) 08/12/2016 9:50 AM EST 08/12/2016 9:57 AM EST Narrative Resulting Agency Comment Spec In Lab Tal Eagle MD URINE ORDERABLES [facility] [place] [address] * (ABNORMAL) Urinalysis with reflex Culture (08/12/2016 9:50 AM EST) Glucose, Urine Dipstick >=500(Critic al) Negative mg/dL [facility] Comment: Urinalysis result NOT critical without a combination of Glucose greater than or equal to 500mg/dl AND Ketones greater than or equal to 80mg/dl. Protein, Urine Dipstick 30(A) Negative mg/dL [facility] Ketone, Urine Dipstick 5(A) Negative mg/dL [facility] Nitrite, Urine Dipstick Negative Negative [facility] Leukocytes, Urine Dipstick Negative Negative [facility] Appearance, Urine Dipstick Clear Clear [facility] Specific [place] Urine Automated 1.023 1.002 - 1.030 [facility] Color, Urine Dipstick Yellow Yellow [facility] RBC, Urine 2 0 - 3 /HPF [facility] WBC, Urine 5(H) 0 - 3 /HPF [facility] Reflex to Culture No [facility] Urine specimen (specimen) 08/12/2016 9:50 AM EST 08/12/2016 9:57 AM EST Narrative Resulting Agency Comment Spec In Lab Tal Eagle MD URINE ORDERABLES [facility] [place] [address] * (ABNORMAL) Comprehensive metabolic panel (non-fasting) (08/12/2016 9:31 AM EST) Glucose 330(H) 65 - 199 mg/dL [facility] Comment:Diabetes: >=200 mg/d L plus symptoms Blood Urea Nitrogen 14 10 - 20 mg/dL [facility] Creatinine 1.29 0.80 - 1.50 mg/dL [facility] Comment: Please note that the pediatric reference intervals supplied above were not validated at [facility]. Results from pediatric patients should be interpreted [...] questions. Chloride 96(L) 98 - 107 mmol/L [facility] Carbon Dioxide 24 22 - 31 mmol/L [facility] Anion Gap 15 5 - 15 mmol/L [facility] Calcium 9.9 8.5 - 10.5 mg/dL [facility] Protein, Total 7.7 6.1 - 8.0 gm/dL [facility] Albumin 4.3 3.2 - 5.2 gm/dL [facility] Aspartate Aminotransferase 22 0 - 39 unit/L [facility] Alanine Aminotransferase 28 0 - 55 unit/L [facility] Alkaline Phosphatase 74 40 - 120 unit/L [facility] Bilirubin, Total 1.4(H) 0.2 - 1.3 mg/dL [facility] Bilirubin, Direct 0.3 0.0 - 0.3 mg/dL [facility] Est Glomerular Filtration Rate 56(L) >=60 [facility] Comment: This [...] the following links into your internet browser. [email or web address] Blood specimen (specimen) 08/12/2016 9:31 AM EST 08/12/2016 9:38 AM EST Narrative Resulting Agency Comment Spec In Lab Tal Eagle MD CHEMISTRY ORDERAB LES Performing Organization Address [facility] Co de Phone Number [facility] [place] [address] * Uric acid (08/12/2016 9:31 AM EST) Uric Acid 6.3 3.5 - 8.5 mg/dL [facility] Blood specimen (specimen) 08/12/2016 9:31 AM EST 08/12/2016 9:38 AM EST Narrative Resulting Agency Comment Spec In Lab Tal Eagle MD CHEMISTRY ORDERAB LES Performing Organization Address [facility]/ZIP Co de Phone Number [facility] [place] [address] * Cholesterol, total (08/12/2016 9:31 AM EST) Cholesterol, Total 126 <=239 mg/dL [facility] Lipid Interpretation See Note [facility] Comment: Lipid management should be guided by a patient? s ASCVD risk, goals and preferences. ACC/AHA Guidelines recommend high intensity statin if clinical ASCVD or LDL greater than or equal to 190 mg/dL. http://circ.ahajournals.org/content/early/.cir.1450180875.63814.7a Adults aged 40-75 with LDL 70-189 mg/dL should have their 10 year ASCVD risk estimated with the ACC/AHA ASCVD risk sales estimator http://tools.acc.org/NVCOB-Qkza-Ceitwkrqp/ Statin should be discussed if risk greater [...] ORDERAB LES Performing Organization Address [facility]/ZIP Co de Phone Number [facility] [place] [address] * Tacrolimus level (08/12/2016 9:31 AM EST) Tacrolimus 4.9 ng/mL [facility] Comment: Trough therapeutic: ??5-15 ng/mL Performed by ultra-performance liquid chromatography tandem mass spectrometry (UPLCMS/MS). Blood specimen (specimen) 08/12/2016 9:31 AM EST 08/12/2016 10:15 AM EST Narrative Resulting Agency Comment Spec In Lab Tal Eagle MD CHEMISTRY ORDERAB LES Performing Organization Address [facility] Co de Phone Number [facility] [place] [address] * Phosphorus (08/12/2016 9:31 AM EST) Phosphorus 2.6 2.5 - 4.5 mg/dL [facility] Blood specimen (specimen) 08/12/2016 9:31 AM EST 08/12/2016 9:38 AM EST Narrative Resulting Agency Comment Spec In Lab Tal Eagle MD CHEMISTRY ORDERAB LES Performing Organization Address [facility] Co de Phone Number [facility] [place] [address] * (ABNORMAL) Magnesium (08/12/2016 9:31 AM EST) Magnesium 0.68(L) 0.69 - 1.07 mmol/L [facility] Blood specimen (specimen) 08/12/2016 9:31 AM EST 08/12/2016 9:38 AM EST Narrative Resulting Agency Comment Spec In Lab Tal Eagle MD CHEMISTRY ORDERAB LES Performing Organization Address [facility] Co de Phone Number [facility] [place] [address] documented in this encounter Visit Diagnoses Diagnosis Kidney transplant recipient documented in this encounter Care Teams Home Health Clinical Liaison Relationship Specialty Start Date End Date Urbano Denis DO [address] [place] [address] PCP - General 09/03/12 03/17/22 Hai STANLEY,Ruchi Nurse Clinic Transplant Surgery 07/30/15 documented as of this encounter
--- OUTSIDE RECORDS SUMMARY | 2024-05-16 17:29 | XMS_ITS | Encounter Summary ---
Author Organization [facility] Address [facility] [place] [address] Care Team Providers Care Police Academy Instructor Name Role Phone Urbano Denis DO Primary Care Provider [phone] Encounter Details Date Type Department Care Team (Late st Contact Info) Description 08/12/2016 Telephone [place] [address] Joanne Fernandes, RN [facility] DR [place] [address] Social History Tobacco Use Types Packs/Day Years [...] her about details HE was [facility] and picked up med today. Copay by the [facility] [place] Mrs Bolden had read package insert in [...] EST TH Visit (TeleHealth) Cardiology at [address] [address] Byron Brown MD [facility] [place] [address] 07/14/2024 10:00 AM EST Hospital Encounter Non-[place] [address] Arrived documented as of this encounter Visit Diagnoses Not on filedocumented in this encounter Care Teams [employer] Instructor Relationship Specialty Start Date End Date Urbano Denis DO [facility] [address] [place] [address] PCP - General 09/03/12 03/17/22 Hai STANLEY,Ruchi Nurse Clinic Transplant Surgery 07/30/15 documented as of this encounter
--- OUTSIDE RECORDS SUMMARY | 2024-05-16 17:29 | XMS_ITS | Encounter Summary ---
Author Organization [facility] [place] [address] Care Team Providers Care Revenue Inspector Name Role Phone Adeel Urbano KIRBY Primary Care Provider [phone] Encounter Details Date Type Department Care Team (Latest Contact Info) Description 07/08/2016 9:30 AM EST Laboratory Appointment Lab [address] [place] [address] Kidney replaced by transplant Social [...] EST TH Visit (TeleHealth) Cardiology at [address] [address] Byron Brown MD [facility] [place] [address] 07/14/2024 10:00 AM EST Hospital Encounter Non-Invasive [place] [address] Arrived documented as of [...] EST) Glucose, Urine Dipstick Negative Negative mg/dL [facility] Leukocytes, Urine Dipstick Negative Negative [facility] Appearance, Urine Dipstick Clear Clear [facility] Specific [place] Urine Automated 1.020 1.002 - 1.030 [facility] Color, Urine Dipstick Yellow Yellow [facility] RBC, Urine 2 0 - 3 /HPF [facility] WBC, Urine 3 0 - 3 /HPF [facility] Reflex to Culture No [facility] Urine specimen obtained by clean catch procedure (specimen) 07/08/2016 8:57 AM EST 07/08/2016 9:02 AM EST Narrative Resulting Agency Comment Spec In Lab Que Amaro MD URINE ORDERABL ES [facility] [place] [address] * (ABNORMAL) Protein/Creatinine Ratio, urine (07/08/2016 8:57 AM EST) Creatinine, Urine 124 mg/dL [facility] Protein, Urine 15(H) 0 - 12 mg/dL [facility] Protein / Creatinine Ratio, Urine 0.1 ratio [facility] Urine specimen (specimen) 07/08/2016 8:57 AM EST 07/08/2016 9:03 AM EST Narrative Resulting Agency Comment Spec In Lab Que Amaro MD URINE ORDERABL ES Performing Organization Address City/[facility]/ZIP Co de Phone Number [facility] [place] [address] * BK Quant Blood Result (07/08/2016 8:56 AM EST) [facility] BKV Blood Result Not Detected [facility] BKV Blood Interp BK Virus Plasma Result Interpretation Result: BK Virus not detected Specimen type: plasma Assay Range: 2.83-8.83 log copies/mL (6.8x10^2 - 6.8x10^8 copies/mL) Methods: Quantitative real-time polymerase chain reaction (PCR) of viral DNA isolated from plasma was performed using [employer] (formerly, [id number]) BKV analyte-specific reagents and the [employer] 7500 FAST Real-Time PCR System. In addition, [...] research. [facility] Comment: [VERIFIED DATE]07.16.16 Verified By:Fatemeh Garcia (Electronic Signature) Blood specimen (specimen) 07/08/2016 8:56 AM EST 07/08/2016 10:38 AM EST Narrative Resulting Agency Comment Spec In Lab Que Amaro MD HEMATOLOGY ORD ERABLES [facility] [place] [address] * Differential, Automated (07/08/2016 8:56 AM EST) [facility] Neutrophil % 68.4 % [facility] Neutrophil Absolute 5.86 1.70 - 6.10 x10(3)/[facility] Lymph % 21.5 % [facility] Lymphocytes Abs 1.8 0.9 - 3.2 x10(3)/[facility] Monocyte % 6.9 % [facility] Monocyte Abs 0.6 0.3 - 0.9 x10(3)/[facility] Eos % 2.1 % [facility] Eosinophils Abs 0.2 0.0 - 0.4 x10(3)/[facility] Basophil % 0.6 % [facility] Baso Absolute 0.0 0.0 - 0.1 x10(3)/[facility] Immature Gran [...] Immature Gran Absolute 0.04 0.00 - 0.04 x10(3)/[facility] Blood specimen (specimen) 07/08/2016 8:56 AM EST 07/08/2016 9:03 AM EST Narrative Resulting Agency Comment Spec In Lab Que Amaro MD HEMATOLOGY ORD ERABLES [facility] [place] [address] * Hemogram (07/08/2016 8:56 AM EST) [facility] White Blood Cell 8.6 4.0 - 9.5 x10(3)/[facility] Red Blood Cell 4.61 4.58 - 5.54 x10(6)/[facility] Hemoglobin 14.7 13.7 - 16.5 gm/dL [facility] Hematocrit 41.5 40.5 - 48.5 % [facility] Mean Cell Volume 90.0 82.9 - 93.1 fL [facility] Mean Cell Hemoglobin 31.9 27.5 - 32.1 pg [facility] Mean Cell Hemoglobin Concentration 35.4 32.0 - 35.7 gm/dL [facility] Platelet 252 145 - 357 x10(3)/[facility] RDW Standard Deviation 40.8 36.0 - 45.0 [facility] RDW coefficient of variation 12.5 11.4 - 13.8 % [facility] Mean Platelet Volume 9.0 7.6 - 12.9 [facility] NRBC% auto 0.0 % [facility] NRBC Absolute 0.000 0.000 - 0.000 x10(3)/[facility] Blood specimen (specimen) 07/08/2016 8:56 AM EST 07/08/2016 9:03 AM EST Narrative Resulting Agency Comment Spec In Lab Que Amaro MD HEMATOLOGY ORD ERABLES Performing Organization Address City/[facility]/ZIP Co de Phone Number [facility] [place] [address] * Uric acid (07/08/2016 8:56 AM EST) Uric Acid 7.1 3.5 - 8.5 mg/dL [facility] Blood specimen (specimen) 07/08/2016 8:56 AM EST 07/08/2016 9:03 AM EST Narrative Resulting Agency Comment Spec In Lab Que Amaro MD CHEMISTRY ORDE DICK Performing Organization Address City/[facility]/ZIP Co de Phone Number [facility] [place] [address] * Tacrolimus level (07/08/2016 8:56 AM EST) Tacrolimus 5.5 ng/mL [facility] Comment: Trough therapeutic: ??5-15 ng/mL Performed by ultra-performance liquid chromatography tandem mass spectrometry (UPLCMS/MS). Blood specimen (specimen) 07/08/2016 8:56 AM EST 07/08/2016 10:54 AM EST Narrative Resulting Agency Comment Spec In Lab Que Amaro MD CHEMISTRY ROCHELLE JENNINGS Performing Organization Address [facility] Co de Phone Number [facility] [place] [address] * Reticulocyte Count (07/08/2016 8:56 AM EST) Reticulocyte % 2.3 0.7 - 2.6 % [facility] Retic Abs # 0.110 0.030 - 0.120 x10(6)/mcL [facility] Immature Retic% 4.9 0.0 - 15.6 % [facility] Reticulated Hgb 37.2 31.3 - 40.2 pg [facility] Blood specimen (specimen) 07/08/2016 8:56 AM EST 07/08/2016 9:03 AM EST Narrative Resulting Agency Comment Spec In Lab Que Amaro MD HEMATOLOGY ORD ERABLES Performing Organization Address [facility] Co de Phone Number [facility] [place] [address] * Phosphorus (07/08/2016 8:56 AM EST) Phosphorus 2.8 2.5 - 4.5 mg/dL [facility] Blood specimen (specimen) 07/08/2016 8:56 AM EST 07/08/2016 9:03 AM EST Narrative Resulting Agency Comment Spec In Lab Que Amaro MD CHEMISTRY ROCHELLE JENNINGS Performing Organization Address [facility] Co de Phone Number [facility] [place] [address] * (ABNORMAL) Magnesium (07/08/2016 8:56 AM EST) Pathologist [facility] Magnesium 0.62(L) 0.69 - 1.07 mmol/L [facility] Blood specimen (specimen) 07/08/2016 8:56 AM EST 07/08/2016 9:03 AM EST Narrative Resulting Agency Comment Spec In Lab Que Amaro MD CHEMISTRY ROCHELLE JENNINGS [facility] [place] [address] * (ABNORMAL) Comprehensive metabolic panel (non-fasting) (07/08/2016 8:56 AM EST) Pathologist [facility] Glucose 258(H) 65 - 199 mg/dL [facility] [...] mass. Sodium 136 135 - 145 mmol/L [facility] Potassium 3.9 3.5 - 5.0 mmol/L [facility] Comment: Please note: ??Patients with WBC >100,000 may have falsely elevated Potassium levels. ??For accurate Potassium quantification in these patients send serum separator tube (gold top) for subsequent determinations. ??Contact the Clinical Chemistry Laboratory if there are any questions. Chloride 97(L) 98 - 107 mmol/L [facility] Carbon Dioxide 23 22 - 31 mmol/L [facility] Anion Gap 16(H) 5 - 15 mmol/L [facility] Calcium 9.7 8.5 - 10.5 mg/dL [facility] Protein, Total 7.7 6.1 - 8.0 gm/dL [facility] Albumin 4.0 3.2 - 5.2 gm/dL [facility] Aspartate Aminotransferase 23 0 - 39 unit/L [facility] Alanine Aminotransferase 24 0 - 55 unit/L [facility] Alkaline Phosphatase 82 40 - 120 unit/L [facility] Bilirubin, Total 1.6(H) 0.2 - 1.3 mg/dL [facility] [...] the following links into your internet browser. [email or web address] Blood specimen (specimen) 07/08/2016 8:56 AM EST 07/08/2016 9:03 AM EST Narrative Resulting Agency Comment Spec In Lab Que Amaro MD CHEMISTRY ROCHELLE JENNINGS [facility] Organization Address City/State/[facility] Co de Phone Number [facility] [place] [address] * Cholesterol, total (07/08/2016 8:56 AM EST) Cholesterol, Total 151 <=239 mg/dL [facility] Lipid Interpretation See Note [facility] Comment: Lipid management should be guided by a patient? s ASCVD risk, goals and preferences. ACC/AHA Guidelines recommend high intensity statin if clinical ASCVD or LDL greater than or equal to 190 mg/dL. http://circ.ahajournals.org/content/early/.cir.9342995364.12682.7a Adults aged 40-75 with LDL 70-189 mg/dL should have their 10 year ASCVD risk estimated with the ACC/AHA ASCVD risk one piece expansion maker hand http://tools.acc.org/PMTXU-Euze-Nuivvmahs/ Statin should be discussed if risk greater [...] Lab Que Amaro MD CHEMISTRY ROCHELLE JENNINGS [place] [id number] documented in this encounter Visit Diagnoses Diagnosis Kidney replaced by transplant documented in this encounter Care Teams Revenue Inspector Relationship Specialty Start Date End Date Urbano Denis DO [address] [place] [address] PCP - General 09/03/12 03/17/22 Ruchi Valles RN Nurse Clinic Transplant Surgery 07/30/15 documented as of this encounter
--- OUTSIDE RECORDS SUMMARY | 2024-05-16 17:29 | XMS_ITS | Encounter Summary ---
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 On 01/04/16, hisviral load was [id number], on 07/30/16 [id number]. I will order a viral load today, [...] Yuliet Kim MD Infectious Disease Fellow Pager [phone] * Aubrey Horvath MD - 09/10/2016 9:30 AM EST Attending Addendum: I have seen and examined the patient, reviewed the data and agree with the note by Dr. Tipton. documented in this encounter Plan of Treatment Upcoming Encounters Date Type Department Care Team (Late st Contact Info) Description 06/22/2024 11:00 AM EST TH Visit (TeleHealth) Cardiology at [address] [phone] Byron Brown MD [facility] [place] [address] 07/14/2024 10:00 AM EST Hospital Encounter Non-Invasive Cardiology Lab [facility] [place] [address] Arrived documented as of this encounter Goals [...] 10:44 AM EST) Neutrophil % 57.7 % [facility] Neutrophil Absolute 3.80 1.70 - 6.10 x10(3)/[facility] Lymph % 29.5 % [facility] Lymphocytes Abs 1.9 0.9 - 3.2 x10(3)/[facility] LABOR[facility]ORY Monocyte % 8.1 % [facility] Monocyte Abs 0.5 0.3 - 0.9 x10(3)/[facility] LABORATORY Eos % 3.3 % [facility] Eosinophils Abs 0.2 0.0 - 0.4 x10(3)/[facility] LAB[facility] Basophil % 1.1 % [facility] [...] Lab Aubrey Horvath MD HEMATOLOGY ORDERA BLES [facility] [place] [id number] * (ABNORMAL) Hemogram (09/10/2016 10:44 AM EST) White Blood Cell 6.6 4.0 - 9.5 x10(3)/ L [facility] Red Blood Cell 4.95 4.58 - 5.54 x10(6)/ L [facility] Hemoglobin 15.7 13.7 - 16.5 gm/dL [facility] Hematocrit 43.7 40.5 - 48.5 % [facility] Mean Cell Volume 88.3 82.9 - 93.1 fL [facility] Mean Cell Hemoglobin 31.7 27.5 - 32.1 pg [facility] Mean Cell Hemoglobin Concentration 35.9(H) 32.0 - 35.7 gm/dL [facility] Platelet 251 145 - 357 x10(3)/ L [facility] RDW Standard Deviation 40.6 36.0 - 45.0 [facility] RDW coefficient of variation 12.5 11.4 - 13.8 % [facility] Mean Platelet Volume 9.3 7.6 - 12.9 [facility] NRBC% auto 0.0 % [facility] NRBC Absolute 0.000 0.000 - 0.000 x10(3)/mc L [facility] Blood specimen (specimen) 09/10/2016 10:44 AM EST 09/10/2016 10:49 AM EST Narrative Resulting Agency Comment Spec In Lab Aubrey Horvath MD HEMATOLOGY ORDERA BLES Performing Organization Address [facility]/ZIP Co de Phone Number [facility] [place] [address] * Hepatitis C RNA, quantitative, PCR (09/10/2016 10:44 AM EST) HCV Viral Load <15 IU/mL [facility] HCV Viral Load Result: <15 [...] This assay is being performed in the [facility] Molecular Pathology Laboratory. Gibson Good, Ph.D. Director, Molecular Pathology [facility] Comment: [VERIFIED DATE]09.12.16 Verified By:Tal Cleaning (Electronic Signature) Blood specimen (specimen) 09/10/2016 10:44 AM EST 09/12/2016 10:39 AM EST Narrative Resulting Agency Comment Spec In Lab Aubrey Horvath MD MOLECULAR ORDERAB LES Performing Organization Address City/[facility]/ZIP Co de Phone Number [facility] [place] [address] * (ABNORMAL) Comprehensive metabolic panel (non-fasting) (09/10/2016 10:44 AM EST) Glucose 106 65 - 199 mg/dL [facility] [...] mass. Sodium 141 135 - 145 mmol/L [facility] [...] 15 mmol/L [facility] Calcium 9.7 8.5 - 10.5 mg/dL [facility] Protein, Total 7.4 6.1 - 8.0 gm/dL [facility] Albumin 4.1 3.2 - 5.2 gm/dL [facility] Aspartate Aminotransferase 16 0 - 39 unit/L [facility] Alanine Aminotransferase 16 0 - 55 unit/L [facility] Alkaline Phosphatase 60 40 - 120 unit/L [facility] Bilirubin, Total 1.8(H) 0.2 - 1.3 mg/dL [facility] Bilirubin, Direct 0.4(H) 0.0 - 0.3 mg/dL [facility] Est Glomerular Filtration Rate 49(L) >=60 [facility] Comment: This [...] the following links into your internet browser. [email or web address] Blood specimen (specimen) 09/10/2016 10:44 AM EST 09/10/2016 10:49 AM EST Narrative Resulting Agency Comment Spec In Lab Aubrey Horvath MD CHEMISTRY ORDERAB LES [facility] [place] [address] documented in this encounter Visit Diagnoses Diagnosis Chronic hepatitis C without hepatic coma Encounter for medication monitoring Encounter for therapeutic drug monitoring [facility] current use of antibiotics Encounter for long-term (current) use of antibiotics documented in this encounter Care Teams Trimmer Sorter Relationship Specialty Start Date End Date Urbano Denis DO [address] [place] [address] PCP - General 09/03/12 03/17/22 Ruchi Valles RN Nurse Clinic Transplant Surgery 07/30/15 documented as of this encounter
--- OUTSIDE RECORDS SUMMARY | 2024-05-16 17:29 | XMS_ITS | Encounter Summary ---
Author Organization [facility] [place] [address] Care Team Providers Care Area Mechanic Name Role Phone Adeel, Urbano KIRBY Primary Care Provider [phone] Encounter Details Date Type Department Care Team (Late st Contact Info) Description 07/02/2016 Orders Only Solid [place] [address] Samia Escalante, RN Recurrent UTI (urinary tract [...] EST TH Visit (TeleHealth) Cardiology at [address] [address] Byron Brown MD [facility] [place] [address] 07/14/2024 10:00 AM EST Hospital Encounter Non-[place] [address] Arrived documented as of this encounter Visit Diagnoses Diagnosis Recurrent UTI (urinary tract infection) Urinary tract infection, site not specified H/O kidney transplant Kidney replaced by transplant documented in this encounter Care Teams Area Mechanic Relationship Specialty Start Date End Date Urbano Denis DO [address] [place] [address] PCP - General 09/03/12 03/17/22 Ruchi Valles RN Nurse Clinic Transplant Surgery 07/30/15 documented as of this encounter
--- OUTSIDE RECORDS SUMMARY | 2024-05-16 17:29 | XMS_ITS | Encounter Summary ---
Author Organization [facility] [place] [address] Care Team Providers Care Sand Screener Name Role Phone Urbano Denis DO Primary Care Provider Encounter Details Date Type Department Care Team (Latest Contact Info) Description 06/18/2016 10:30 AM EST Laboratory Appointment Lab [address] [place] [address] Kidney replaced by transplant Social [...] EST TH Visit (TeleHealth) Cardiology at [address] [address] Byron Brown MD [facility] [place] [address] 07/14/2024 10:00 AM EST Hospital Encounter Non-Invasive [place] [address] Arrived documented as of this [...] MICROBIOLOGY - GENERAL ORDERABLES Performing Organization Address City/State/[facility] Co de Phone Number [facility] [place] [address] * (ABNORMAL) Urinalysis with reflex Culture (06/18/2016 [...] indicated. Urobilinogen, Urine Dipstick 2.0(A) Normal mg/dL [facility] pH, Urn (dipstick) 6.0 5.0 - 8.0 [facility] Blood, Urine Dipstick Small(A) Negative mg/dL [facility] Ketone, Urine Dipstick Negative Negative mg/dL [facility] Nitrite, Urine Dipstick Negative Negative [facility] Leukocytes, Urine Dipstick Trace(A) Negative [facility] Appearance, Urine Dipstick Clear Clear [facility] Specific Gerald Urine Automated 1.025 1.002 - 1.030 [facility] Color, Urine Dipstick Yellow Yellow [facility] RBC, Urine 3 0 - 3 /HPF [facility] WBC, Urine 14(H) 0 - 3 /HPF [facility] Bacteria, Urine Rare(A) None /HPF [facility] Transitional Epithelial Cells, Urine 1 <=1 /HPF [facility] Renal Epithelial Cells, Urine <1(H) <=0 /HPF [facility] Amorphous Crystals, Urine Rare(A) None /HPF [facility] Reflex to Culture Yes [facility] Urine specimen obtained by clean catch procedure (specimen) 06/18/2016 10:57 AM EST 06/18/2016 10:58 AM EST Narrative Resulting Agency Comment Spec In Lab Que Amaro MD URINE ORDERABL ES Performing Organization Address City/[facility]/ZIP Co de Phone Number [facility] [place] [address] * (ABNORMAL) Protein/Creatinine Ratio, urine (06/18/2016 10:57 AM EST) Creatinine, Urine 158 mg/dL [facility] Protein, Urine 24(H) 0 - 12 mg/dL [facility] Protein / Creatinine Ratio, Urine 0.2 ratio [facility] Urine specimen (specimen) 06/18/2016 10:57 AM EST 06/18/2016 11:15 AM EST Narrative Resulting Agency Comment Spec In Lab Que Amaro MD URINE ORDERABL ES Performing Organization Address City/[facility]/ZIP Co de Phone Number [facility] [place] [address] * BK Quant Blood Result (06/18/2016 10:44 AM EST) BKV Blood Result Not Detected [facility] BKV Blood Interp BK Virus Plasma Result Interpretation Result: BK Virus not detected Specimen type: plasma Assay Range: 2.83-8.83 log copies/mL (6.8x10^2 - 6.8x10^8 copies/mL) Methods: Quantitative real-time polymerase chain reaction (PCR) of viral DNA isolated from plasma was performed using [employer] (formerly, [employer]) BKV analyte-specific reagents and the [employer] 7500 FAST Real-Time PCR System. In addition, [...] Genomics and [employer] Technology (CGAT) Laboratory at [facility]. It has not been cleared or approved by the FDA. The laboratory is regulated under CLIA as qualified to perform high-complexity testing. This test is used for clinical purposes. It should not be regarded as investigational or for research. [facility] Comment: [VERIFIED DATE]06.24.16 Verified By:Tal Cleaning (Electronic Signature) Blood specimen (specimen) 06/18/2016 10:44 AM EST 06/18/2016 2:24 PM EST Narrative Resulting Agency Comment Spec In Lab Que Amaro MD HEMATOLOGY ORD ERABLES [facility] [place] [id number] * Differential, Automated (06/18/2016 10:44 AM EST) Neutrophil % 62.1 % [facility] Neutrophil Absolute 4.03 1.70 - 6.10 x10(3)/[facility] Lymph % 22.7 % [facility] Lymphocytes Abs 1.5 0.9 - 3.2 x10(3)/[facility] Monocyte % 8.0 % [facility] Monocyte Abs 0.5 0.3 - 0.9 x10(3)/[facility] Eos % 5.5 % [facility] Eosinophils Abs 0.4 0.0 - 0.4 x10(3)/[facility] Basophil % 1.2 % [facility] Baso Absolute 0.1 0.0 - 0.1 x10(3)/[facility] Immature Gran % 0.50 % [facility] [...] 0.04 x10(3)/[facility] Blood specimen (specimen) 06/18/2016 10:44 AM EST 06/18/2016 10:51 AM EST Narrative Resulting Agency Comment Spec In Lab Que Amaro MD HEMATOLOGY ORD ERABLES [facility] [place] [address] * (ABNORMAL) Hemogram (06/18/2016 10:44 AM EST) White Blood Cell 6.5 4.0 - 9.5 x10(3)/[facility] LABORATORY Red Blood Cell 4.37(L) 4.58 - 5.54 x10(6)/ L [facility] Hemoglobin 14.2 13.7 - 16.5 gm/dL [facility] Hematocrit 41.1 40.5 - 48.5 % [facility] Mean Cell Volume 94.1(H) 82.9 - 93.1 fL [facility] Mean Cell Hemoglobin 32.5(H) 27.5 - 32.1 pg [facility] Mean Cell Hemoglobin Concentration 34.5 32.0 - 35.7 gm/dL [facility] Platelet 199 145 - 357 x10(3)/ L [facility] RDW Standard Deviation 44.3 36.0 - 45.0 [facility] RDW coefficient of variation 12.9 11.4 - 13.8 % [facility] Mean Platelet Volume 9.4 7.6 - 12.9 fL [facility] NRBC% auto 0.0 % [facility] NRBC Absolute 0.000 0.000 - 0.000 x10(3)/mc L [facility] Blood specimen (specimen) 06/18/2016 10:44 AM EST 06/18/2016 10:51 AM EST Narrative Resulting Agency Comment Spec In Lab Que Amaro MD HEMATOLOGY ORD ERABLES [facility] [place] [address] * Uric acid (06/18/2016 10:44 AM EST) Pathologist [facility] Uric Acid 7.9 3.5 - 8.5 mg/dL [facility] Blood specimen (specimen) 06/18/2016 10:44 AM EST 06/18/2016 10:51 AM EST Narrative Resulting Agency Comment Spec In Lab Que Amaro MD CHEMISTRY ROCHELLE JENNINGS Performing Organization Address [facility] Co de Phone Number [facility] [place] [address] * Tacrolimus level (06/18/2016 10:44 AM EST) Pathologist [facility] Tacrolimus 4.0 ng/mL [facility] Comment: Trough therapeutic: ??5-15 ng/mL Performed by ultra-performance liquid chromatography tandem mass spectrometry (UPLCMS/MS). Blood specimen (specimen) 06/18/2016 10:44 AM EST 06/18/2016 1:23 PM EST Narrative Resulting Agency Comment Spec In Lab Que Amaro MD CHEMISTRY ROCHELLE JENNINGS Performing Organization Address City/[facility]/ZIP Co de Phone Number [facility] [place] [address] * (ABNORMAL) Reticulocyte Count (06/18/2016 10:44 AM EST) Reticulocyte % 2.7(H) 0.7 - 2.6 % [facility] Retic Abs # 0.120 0.030 - 0.120 x10(6)/mcL [facility] Immature Retic% 9.5 0.0 - 15.6 % [facility] Reticulated Hgb 37.8 31.3 - 40.2 pg [facility] Blood specimen (specimen) 06/18/2016 10:44 AM EST 06/18/2016 10:51 AM EST Narrative Resulting Agency Comment Spec In Lab Que Amaro MD HEMATOLOGY ORD ERABLES Performing Organization Address City/[facility]/ZIP Co de Phone Number [facility] [place] [address] * Phosphorus (06/18/2016 10:44 AM EST) Phosphorus 2.7 2.5 - 4.5 mg/dL [facility] Blood specimen (specimen) 06/18/2016 10:44 AM EST 06/18/2016 10:51 AM EST Narrative Resulting Agency Comment Spec In Lab Que Amaro MD CHEMISTRY ORDBhargav JENNINGS Performing Organization Address [facility]/ZIP Co de Phone Number [facility] [place] [address] * (ABNORMAL) Magnesium (06/18/2016 10:44 AM EST) Magnesium 0.66(L) 0.69 - 1.07 mmol/L [facility] Blood specimen (specimen) 06/18/2016 10:44 AM EST 06/18/2016 10:51 AM EST Narrative Resulting Agency Comment Spec In Lab Que Amaro MD CHEMISTRY ORDBhargav JENNINGS Performing Organization Address City/[facility]/ZIP Co de Phone Number [facility] [place] [address] * Cyclosporine level (06/18/2016 10:44 AM EST) Pathologist [facility] Cyclosporine A Level <30 ng/mL [facility] Comment: Trough therapeutic: ??100-300 ng/mL [...] Amaro MD LAB SEND OUT O RDERABLES [facility] [place] [address] * (ABNORMAL) Comprehensive metabolic panel (non-fasting) (06/18/2016 10:44 AM EST) Pathologist [facility] Glucose 153 65 - 199 mg/dL [facility] Comment:Diabetes: >=200 mg/d L plus symptoms Blood Urea Nitrogen 16 10 - 20 mg/dL [facility] Creatinine 1.34 0.80 - 1.50 mg/dL [facility] Comment: Please note that the pediatric reference intervals supplied above were not validated at [facility]. Results from pediatric patients should be interpreted in conjunction to the patient's age, height and muscle mass. Sodium 142 135 - 145 mmol/L [facility] Potassium 4.2 3.5 - 5.0 mmol/L [facility] [...] 8.0 gm/dL [facility] Albumin 4.1 3.2 - 5.2 gm/dL [facility] Aspartate Aminotransferase 32 0 - 39 unit/L [facility] Alanine Aminotransferase 26 0 - 55 unit/L [facility] Alkaline Phosphatase 80 40 - 120 unit/L [facility] Bilirubin, Total 1.1 0.2 - 1.3 mg/dL [facility] Bilirubin, Direct 0.3 0.0 - 0.3 mg/dL [facility] Est Glomerular Filtration Rate 53(L) >=60 [facility] Comment: This [...] the following links into your internet browser. [email or web address] Blood specimen (specimen) 06/18/2016 10:44 AM EST 06/18/2016 10:51 AM EST Narrative Resulting Agency Comment Spec In Lab Que Amaro MD CHEMISTRY ROCHELLE JENNINGS [facility] [place] [address] * Cholesterol, total (06/18/2016 10:44 AM EST) Cholesterol, Total 160 <=239 mg/dL [facility] Lipid Interpretation See Note [facility] Comment: Lipid management should be guided by a patient? s ASCVD risk, goals and preferences. ACC/AHA Guidelines recommend high intensity statin if clinical ASCVD or LDL greater than or equal to 190 mg/dL. http://circ.ahajournals.org/content/early/.cir.0050246356.32056.7a Adults aged 40-75 with LDL 70-189 mg/dL should have their 10 year ASCVD risk estimated with the ACC/AHA ASCVD risk take away attendant http://tools.acc.org/YXBIV-Rfna-Ufcgldlzx/ Statin should be discussed if risk greater [...] CHEMISTRY ROCHELLE JENNINGS [facility] [place] [address] documented in this encounter Visit Diagnoses Diagnosis Kidney replaced by transplant documented in this encounter Care Teams Sand Screener Relationship Specialty Start Date End Date Urbano Denis DO [address] [place] [address] PCP - General 09/03/12 03/17/22 Ruchi Valles RN Nurse Clinic Transplant Surgery 07/30/15 documented as of this encounter
--- OUTSIDE RECORDS SUMMARY | 2024-05-16 17:29 | XMS_ITS | Encounter Summary ---
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 Cody Bolden [id number] ?? Transplant ID: ?? Date:? 08/12/2016 [...] --> Dina DM2: -uncontrolled -referral to Endocrinology -product owner met with the patient and made recommendations regarding dietary changes RTC in 1 month Tanmay Camara DO Nephrology Fellow [facility] I reviewed all of the above findings and assessment of Dr. Camara, edited the above note to reflect my assessment and examination and formulated the recommendations which accurately reflect mine. * Herlinda Bell RD - 08/12/2016 10:00 AM EST [facility] Post Transplant Nutrition Follow Up Date: 08/13/2016 Patient: Cody Bolden Transplant Date: 09/16/15 [place] [facility] UNOS diagnosis: Transplant: Mr. Cody Bolden [...] in BG and spilling in urine. This publications writer discussed this with patient and counseled him on limiting his carbohydrate intake per meal to ~60gms. This publications writer discussed carbohydrate choices to equal 60gms or so per meal and rationale. This publications writer provided printed information on what we [...] EST TH Visit (TeleHealth) Cardiology at [address] [id number] Byron Brown MD [facility] [place] [address] 07/14/2024 10:00 AM EST Hospital Encounter Non-Invasive [place] [id number] Arrived documented as of this encounter Goals [...] Reticulocyte % 2.5 0.7 - 2.6 % [facility] Retic Abs # 0.130(H) 0.030 - 0.120 x10(6)/mc L [facility] Immature Retic% 9.1 0.0 - 15.6 % [facility] Reticulated Hgb 36.1 31.3 - 40.[address] [facility] Blood specimen (specimen) 08/12/2016 9:31 AM EST 08/12/2016 9:38 AM EST Narrative Resulting Agency Comment Spec In Lab Tal Eagle MD HEMATOLOGY ORDERA BLES [facility] [place] [address] documented in this encounter Visit Diagnoses Diagnosis Kidney replaced by transplant Type 2 diabetes mellitus with complication, without long-term current use of insulin Immunosuppression Unspecified disorder of immune mechanism Essential hypertension Unspecified essential hypertension Weight increase Abnormal weight gain CAH (chronic active hepatitis) Other chronic hepatitis documented in this encounter Care Teams Core Blower Operator Relationship Specialty Start Date End Date Urbano Denis DO [address] [place] [address] [address] [place] [address] PCP - General 09/03/12 03/17/22 Ruchi Valles RN Nurse Clinic Transplant Surgery 07/30/15 documented as of this encounter
--- OUTSIDE RECORDS SUMMARY | 2024-05-16 17:29 | XMS_ITS | Encounter Summary ---
Author Organization Formerly [facility] Address [facility] [place] [address] Care Team Providers Care Roller Turner Name Role Phone Adeel Urbano KIRBY Primary Care Provider [phone] Reason for Visit * Reason Comments Follow-up Encounter Details Date Type Department Care Team (Late st Contact Info) Description 07/30/2016 11:30 AM EST Office Visit [place] [address] Franko Kim MD [facility] [place] [address] Chronic hepatitis C without hepatic coma Social [...] fibrosis. On 01/04/16, his viral load was [id number]. He feels well today. Has not had [...] 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 On 01/04/16, hisviral load was [id number]. On 07/08, he had normal liver tests [...] Yuliet Kim MD Infectious Disease Fellow Pager [phone] * Aubrey Horvath MD - 07/30/2016 11:30 AM EST Attending Addendum: I have seen and examined the patient, reviewed the data and agree with the note by Dr. Tipton. documented in this encounter Plan of Treatment Upcoming Encounters Date Type Department Care Team (Late st Contact Info) Description 06/22/2024 11:00 AM EST TH Visit (TeleHealth) Cardiology at [address] [phone] Byron Brown MD [facility] DR CARDIOLOGY [place], [place] [id number] 07/14/2024 10:00 AM EST Hospital Encounter Non[place] [address] Arrived documented as of this [...] EST) Glucose 200(H) 65 - 199 mg/dL [facility] Comment:Diabetes: >=200 mg/d L plus symptoms Blood Urea Nitrogen 15 10 - 20 mg/dL [facility] Creatinine 1.24 0.80 - 1.50 mg/[facility] [...] mg/dL [facility] Protein, Total 7.8 6.1 - 8.0 gm/dL [facility] Albumin 4.2 3.2 - 5.2 gm/dL [facility] Aspartate Aminotransferase 25 0 - 39 unit/L [facility] Alanine Aminotransferase 32 0 - 55 unit/L [facility] Alkaline Phosphatase 65 40 - 120 unit/L [facility] Bilirubin, Total 1.8(H) 0.2 - 1.3 mg/dL [facility] Bilirubin, Direct 0.4(H) 0.0 - 0.3 mg/dL [facility] Est Glomerular Filtration Rate 58(L) >=60 [facility] Comment: This [...] the following links into your internet browser. [email or web address] Blood specimen (specimen) 07/30/2016 1:06 PM EST 07/30/2016 1:13 PM EST Narrative Resulting Agency Comment Spec In Lab Aubrey Horvath MD CHEMISTRY ORDERAB LES [facility] [place] [address] * Hepatitis C RNA, quantitative, PCR (07/30/2016 1:06 PM EST) HCV Viral Load 443,901 IU/mL [facility] HCV Viral Load Result: [id number] IU/mL Indication for Study: Hepatitis C Infection Analysis: A quantitiative real time reverse transcriptase PCR assay was performed on extracted viral RNA for the purpose of quantification. Sample: plasma (1 mL minimum volume) Method: Kirsten Jnue TaqMAN 48 HCV Linear Range: 15 IU/mL - 100,000,000IU/mL (95% CI) Note: This assay is being performed in the [facility] Molecular Pathology Laboratory. Gibson Good, Ph.D. Director, Molecular Pathology [facility] Comment: [VERIFIED DATE]08.05.16 Verified By:Fatemeh Garcia (Electronic Signature) Blood specimen (specimen) 07/30/2016 1:06 PM EST 08/04/2016 9:12 AM EST Narrative Resulting Agency Comment Spec In Lab Aubrey Horvath MD MOLECULAR ORDERAB LES [facility] [place] [address] documented in this encounter Visit Diagnoses Diagnosis Chronic hepatitis C without hepatic coma documented in this encounter Care Teams Roller Turner Relationship Specialty Start Date End Date Urbano Denis DO [address] [place] [address] [address] [place] [address] PCP - General 09/03/12 03/17/22 Ruchi Valles RN Nurse Clinic Transplant Surgery 07/30/15 documented as of this encounter
--- OUTSIDE RECORDS SUMMARY | 2024-05-16 17:29 | XMS_ITS | Encounter Summary ---
Author Organization [facility] [place] [address] Care Team Providers Care Dipper And Baker Name Role Phone Urbano Denis DO Primary Care Provider [phone] Encounter Details Date Type Department Care Team (Latest Contact Info) Description 08/12/2016 9:00 AM EST Laboratory Appointment Lab [address] [place] [address] Kidney transplant recipient; Kidney replaced [...] EST TH Visit (TeleHealth) Cardiology at [address] [address] Byron Brown MD [facility] [address] 07/14/2024 10:00 AM EST Hospital Encounter Non-[place] [address] Arrived documented as of this [...] 9:50 AM EST) Creatinine, Urine 132 mg/dL [facility] Protein, Urine 29(H) 0 - 12 mg/dL [facility] Protein / Creatinine Ratio, Urine 0.2 ratio [facility] Urine specimen (specimen) 08/12/2016 9:50 AM EST 08/12/2016 9:57 AM EST Narrative Resulting Agency Comment Spec In Lab Tal Eagle MD URINE ORDERABLES [facility] [place] [address] * (ABNORMAL) Urinalysis with reflex Culture (08/12/2016 9:50 AM EST) Glucose, Urine Dipstick >=500(Critic al) Negative mg/dL [facility] Comment: Urinalysis result NOT critical without a combination of Glucose greater than or equal to 500mg/dl AND Ketones greater than or equal to 80mg/dl. Protein, Urine Dipstick 30(A) Negative mg/dL [facility] [...] [facility] Ketone, Urine Dipstick 5(A) Negative mg/dL [facility] Nitrite, Urine Dipstick Negative Negative [facility] Leukocytes, Urine Dipstick Negative Negative [facility] Appearance, Urine Dipstick Clear Clear [facility] Specific Traer Urine Automated 1.023 1.002 - 1.030 [facility] Color, Urine Dipstick Yellow Yellow [facility] RBC, Urine 2 0 - 3 /HPF [facility] WBC, Urine 5(H) 0 - 3 /HPF [facility] Reflex to Culture No [facility] Urine specimen (specimen) 08/12/2016 9:50 AM EST 08/12/2016 9:57 AM EST Narrative Resulting Agency Comment Spec In Lab Tal Eagle MD URINE ORDERABLES [facility] [place] [address] * BK Quant Blood Result (08/12/2016 9:31 AM EST) BKV Blood Result Not Detected [facility] BKV Blood Interp BK Virus Plasma Result Interpretation Result: BK Virus not detected Specimen type: plasma Assay Range: 2.83-8.83 log copies/mL (6.8x10^2 - 6.8x10^8 copies/mL) Methods: Quantitative real-time polymerase chain reaction (PCR) of viral DNA isolated from plasma was performed using [employer] (formerly, [employer]) BKV analyte-specific reagents and the [employer] 7500 FAST Real-Time PCR System. In addition, [...] [employer] (CGAT) Laboratory at [facility]. It has not been cleared or approved by the FDA. The laboratory is regulated under CLIA as qualified to perform high-complexity testing. This test is used for clinical purposes. It should not be regarded as investigational or for research. [facility] Comment: [VERIFIED DATE]08.19.16 Verified By:Nella Evans (Electronic Signature) Blood specimen (specimen) 08/12/2016 9:31 AM EST 08/12/2016 1:20 PM EST Narrative Resulting Agency Comment Spec In Lab Tal Eagle MD HEMATOLOGY ORDERA BLES [facility] [place] [address] * Differential, Automated (08/12/2016 9:31 AM EST) Neutrophil % 67.5 % [facility] Neutrophil Absolute 5.38 1.70 - 6.10 x10(3)/[facility] Lymph % 21.5 % [facility] Lymphocytes Abs 1.7 0.9 - 3.2 x10(3)/[facility] Monocyte % 7.0 % [facility] Monocyte Abs 0.6 0.3 - 0.9 x10(3)/[facility] Eos % 2.5 % [facility] Eosinophils Abs 0.2 0.0 - 0.4 x10(3)/[facility] Basophil % 1.0 % [facility] Baso Absolute 0.1 0.0 - 0.1 x10(3)/[facility] Immature Gran % 0.50 % [facility] Comment: Immature granulocytes(IG's)percentage and absolute count will include metamyelocytes, myelocytes, and promyelocytes. Blood smears from CBCs yielding IG's will be scanned manually for concordance. If this scan disagrees with the automated IG or if promyelocytes are noted, a manual differential will be performed. Immature Gran Absolute 0.04 0.00 - 0.04 x10(3)/[facility] Blood specimen (specimen) 08/12/2016 9:31 AM EST 08/12/2016 9:38 AM EST Narrative Resulting Agency Comment Spec In Lab Tal Eagle MD HEMATOLOGY ORDERA BLES [facility] [place] [address] * Hemogram (08/12/2016 9:31 AM EST) [facility] White Blood Cell 8.0 4.0 - 9.5 x10(3)/[facility] Red Blood Cell 4.96 4.58 - 5.54 x10(6)/[facility] Hemoglobin 15.8 13.7 - 16.5 gm/dL [facility] Hematocrit 44.9 40.5 - 48.5 % [facility] Mean Cell Volume 90.5 82.9 - 93.1 fL [facility] Mean Cell Hemoglobin 31.9 27.5 - 32.1 pg [facility] Mean Cell Hemoglobin Concentration 35.2 32.0 - 35.7 gm/dL [facility] Platelet 236 145 - 357 x10(3)/[facility] RDW Standard Deviation 41.4 36.0 - 45.0 [facility] RDW coefficient of variation 12.6 11.4 - 13.8 % [facility] Mean Platelet Volume 9.6 7.6 - 12.9 [facility] NRBC% auto 0.0 % [facility] NRBC Absolute 0.000 0.000 - 0.000 x10(3)/[facility] Blood specimen (specimen) 08/12/2016 9:31 AM EST 08/12/2016 9:38 AM EST Narrative Resulting Agency Comment Spec In Lab Tal Eagle MD HEMATOLOGY ORDERA BLES [facility] [place] [address] * (ABNORMAL) Reticulocyte Count (08/12/2016 9:31 AM EST) [facility] Reticulocyte % 2.5 0.7 - 2.6 % [facility] Retic Abs # 0.130(H) 0.030 - 0.120 x10(6)/mc L [facility] Immature Retic% 9.1 0.0 - 15.6 % [facility] Reticulated Hgb 36.1 31.3 - 40.2 pg [facility] Blood specimen (specimen) 08/12/2016 9:31 AM EST 08/12/2016 9:38 AM EST Narrative Resulting Agency Comment Spec In Lab Tal Eagle MD HEMATOLOGY ORDERA BLES [facility] [place] [address] * (ABNORMAL) Comprehensive metabolic panel (non-fasting) (08/12/2016 9:31 AM EST) Glucose 330(H) 65 - 199 mg/dL [facility] Comment:Diabetes: >=200 mg/d L plus symptoms Blood Urea Nitrogen 14 10 - 20 mg/dL [facility] Creatinine 1.29 0.80 - 1.50 mg/dL [facility] Comment: Please note that the pediatric reference intervals supplied above were not validated at [facility]. Results from pediatric patients should be interpreted in conjunction to the patient's age, height and muscle mass. Sodium 135 135 - 145 mmol/L [facility] Potassium 4.2 3.5 - 5.0 mmol/L [facility] [...] mmol/L [facility] Calcium 9.9 8.5 - 10.5 mg/dL [facility] Protein, Total 7.7 6.1 - 8.0 gm/dL [facility] Albumin 4.3 3.2 - 5.2 gm/dL [facility] Aspartate Aminotransferase 22 0 - 39 unit/L [facility] Alanine Aminotransferase 28 0 - 55 unit/L [facility] Alkaline Phosphatase 74 40 - 120 unit/L [facility] Bilirubin, Total 1.4(H) 0.2 - 1.3 mg/dL [facility] Bilirubin, Direct 0.3 0.0 - 0.3 mg/dL [facility] Est Glomerular Filtration Rate 56(L) >=60 [facility] Comment: [...] the following links into your internet browser. [email or web address] Blood specimen (specimen) 08/12/2016 9:31 AM EST 08/12/2016 9:38 AM EST Narrative Resulting Agency Comment Spec In Lab Tal Eagle MD CHEMISTRY ORDERAB LES Performing Organization Address [facility] Co de Phone Number [facility] [place] [address] * Uric acid (08/12/2016 9:31 AM EST) Uric Acid 6.3 3.5 - 8.5 mg/dL [facility] Blood specimen (specimen) 08/12/2016 9:31 AM EST 08/12/2016 9:38 AM EST Narrative Resulting Agency Comment Spec In Lab Tal Eagle MD CHEMISTRY ORDERAB LES [facility] [place] [address] * Cholesterol, total (08/12/2016 9:31 AM EST) Cholesterol, Total 126 <=239 mg/dL [facility] Lipid Interpretation See Note [facility] Comment: Lipid management should be guided by a patient? s ASCVD risk, goals and preferences. ACC/AHA Guidelines recommend high intensity statin if clinical ASCVD or LDL greater than or equal to 190 mg/dL. http://circ.ahajournals.org/content/early/.cir.5549456836.66759.7a Adults aged 40-75 with LDL 70-189 mg/dL should have their 10 year ASCVD risk estimated with the ACC/AHA ASCVD risk television repairer http://tools.acc.org/XVLCJ-Jwsd-Wqhgwrjyl/ Statin should be discussed if risk greater [...] Lab Tal Eagle MD CHEMISTRY ORDERAB LES [facility] [place] [address] * Tacrolimus level (08/12/2016 9:31 AM EST) Tacrolimus 4.9 ng/mL [facility] Comment: Trough therapeutic: ??5-15 ng/mL Performed by ultra-performance liquid chromatography tandem mass spectrometry (UPLCMS/MS). Blood specimen (specimen) 08/12/2016 9:31 AM EST 08/12/2016 10:15 AM EST Narrative Resulting Agency Comment Spec In Lab Tal Eagle MD CHEMISTRY ORDERAB LES Performing Organization Address [facility] Co de Phone Number [facility] [place] [address] * Phosphorus (08/12/2016 9:31 AM EST) Phosphorus 2.6 2.5 - 4.5 mg/dL [facility] Blood specimen (specimen) 08/12/2016 9:31 AM EST 08/12/2016 9:38 AM EST Narrative Resulting Agency Comment Spec In Lab Tal Eagle MD CHEMISTRY ORDERAB LES Performing Organization Address [facility] Co de Phone Number [facility] [place] [address] * (ABNORMAL) Magnesium (08/12/2016 9:31 AM EST) Magnesium 0.68(L) 0.69 - 1.07 mmol/L [facility] Blood specimen (specimen) 08/12/2016 9:31 AM EST 08/12/2016 9:38 AM EST Narrative Resulting Agency Comment Spec In Lab Tal Eagle MD CHEMISTRY ORDERAB LES Performing Organization Address [facility] Co de Phone Number [facility] [place] [address] documented in this encounter Visit Diagnoses Diagnosis Kidney transplant recipient Kidney replaced by transplant documented in this encounter Care Teams Dipper And Baker Relationship Specialty Start Date End Date Ubrano Denis DO [address] [place] [address] PCP - General 09/03/12 03/17/22 Hai STANLEY,Ruchi Nurse Clinic Transplant Surgery 07/30/15 documented as of this encounter
--- OUTSIDE RECORDS SUMMARY | 2024-05-16 17:29 | XMS_ITS | Encounter Summary ---
Author Organization Formerly [facility] [place] [address] Care Team Providers Care Construction Supervisor Name Role Phone Urbano Denis DO Primary Care Provider [phone] Reason for Visit * Auth/Cert Specialty Diagnoses / Procedures Referred By Humberto t Referred To Contact Diagnoses Sepsis UROSEPSIS S/P TRANSPLANT Referral ID Status Reason Start Date Expiration Date Visits Re quested Visits Authorized [id number] 1 1 Encounter Details Date Type Department Care Team (Latest Contact Info) Description 06/22/2016 6:01 PM EST - 06/25/2016 11:22 AM EST Hospital Encounter [address] [place] [address] Tal Eagle MD [facility] [place] [address] ESRD (end stage renal disease) Discharge Disposition: [...] Cody Bolden was admitted [place] [facility] [place]from OSH for concern for UTI. [...] that part of your care. Urology Clinic: [phone] PCP: @PCP@, . Please follow-up with your PCP in 1-2 weeks or sooner as needed. Issues to be followed-up with your PCP: 1. Scheduled Appointments: The following appointments have been scheduled on your behalf: Future Appointments and Orders Future Appointments Provider Department Dept Phone 07/08/2016 9:30 AM [facility], [facility] Lab 07/08/2016 10:30 AM Que Amaro MD Transplant [phone] 07/22/2016 9:30 AM LAB, [facility] 07/22/2016 10:30 AM Que Amaro MD Transplant [phone] 09/15/2016 9:00 AM LAB, [facility] 09/15/2016 10:00 AM Tal Eagle MD Transplant [phone] Future Orders Complete By Expires Urinalysis with reflex Culture [FPH310 Custom] 07/01/2016 06/24/2017 Process Instructions: Scheduling Instructions: [...] 1 week. This can be done at [facility] or a facility closer to home. Ask for the results to be sent to [facility]. A follow-up appointment will be made to [...] Department anytime (day, night, weekend, holiday) at [phone] . After hours, please follow the instructions on the message. You can also reach the edi coordinator after hours by calling (ask for the edi coordinator on-call). General Instructions None Call your [...] managed by the Urologic Surgery Team at [facility]. If you have any questions or concerns, please feel free to contact us. Provider Contact Information: [facility] (after business hours): CC: Urbano Denis DO [phone] Signed: Jay Vargas MD 06/25/2016 I have [...] 1 week. This can be done at [facility] or a facility closer to home. Ask for the results to be sent to [facility]. A follow-up appointment will be made to [...] Department anytime (day, night, weekend, holiday) at [phone] . After hours, please follow the instructions on the message. You can also reach the edi coordinator after hours by calling (ask for the edi coordinator on-call). documented in this encounter Medications [...] Cultures: 06/22 NGTD Urine Cultures: 06/22 at [facility]: > 100k GNR 06/18 NGTD 06/22 [...] Klebsiella oxytoca in his urine culture at [facility]. Clinically improved on piperacillin/tazobactam, with negative [...] Do not hesitate to page us at [phone] with any further questions or concerns. ? Franko Kim MD Infectious Disease Fellow Pager [phone] ID Attending I agree with impression and [...] [facility] OR ??? Pro reimplant ureter, single ureter Left 05/20/2016 @URETERONEOCYSTOSTOMY ANASTOMOSIS OF SINGLE URETER TO BLADDER performed by Santosh Arredondo MD at [facility] OR ??? Pro reimplant ureter, single ureter N/A 05/20/2016 @URETERONEOCYSTOSTOMY ANASTOMOSIS OF SINGLE URETER TO BLADDER performed by Que Amaro MD at [facility] MEDICATIONS: No current facility-administered medications on file [...] Enrique Ferrell MD General Surgery PGY-1 Pager [phone] I reviewed all of the above findings [...] Conf 06/24/16 1509 Interdisciplinary Rounds/Family Conf Participants pillowcase sewer * Plan of Care - Brenda Escalante [...] incontinence. No dysuria. He went to the [facility] ED and was found to be septic, so he was transferred to [facility]. Here, he was febrile but hemodynamically stable. [...] 04/27 ? Past ID involvement in Mr. 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 Pro transplantation of kidney N/A 09/16/2015 @KIDNEY TRANSPLANT, WITHOUT RECIPIENT NEPHRECTOMY performed by Franko Larkin MD at [facility] OR ??? Pro transplant, prep cadaver renal graft N/A 09/16/2015 @PREPARATION CADAVERIC RENAL ALLOGRAFT performed by Franko Larkin MD at [facility] OR ??? N/A 09/16/2015 ORGAN ACQUISITION RENAL, CADAVERIC performed by Franko Larkin MD at [facility] OR ??? Pro reimplant ureter, single ureter Left 05/20/2016 @URETERONEOCYSTOSTOMY ANASTOMOSIS OF SINGLE URETER TO BLADDER performed by Santosh Arredondo MD at [facility] OR ??? Pro reimplant ureter, single ureter N/A 05/20/2016 @URETERONEOCYSTOSTOMY ANASTOMOSIS OF SINGLE URETER TO BLADDER performed by Que Amaro MD at [facility] OR Prior To Admission Medications: [...] NGTD Urine Cultures: >100 k GNR at [facility] Radiology/Studies/Procedures: 05/20 Op Note Complex/hard/aida dissection of bladder/ureter from graft Graft ureter completely stuck in pelvis, dissected up into the renal pelvis. Flexible intraop ureteroscopy to confirm location Boari flap performed and anastomosed to proximal graft ureter. Tension free. Short JJ stent placed [place] left ureter divided and dissected Assessment: Cody [...] 100k GNR in his urine culture at [facility]. Clinically improved on piperacillin/tazobactam, with negative cultures here. Most likely, his infection is related to the stent removal. We are awaiting final speciation and susceptibilities from the urine and [facility]. In the meantime, we recommend to stop vancomycin and to continue piperacillin/tazobactam Recommendations: - stop vancomycin - continue piperacillin/tazobactam - follow up cultures from [facility] This patient was seen and discussed with ID attending Dr. Plascencia. Recommendations discussed with primary treating team. ID consult service will continue to follow patient. Do not hesitate to page us at [phone] with any further questions or concerns. Franko Kim MD Infectious Disease Fellow Pager [phone] ID Attending Recurrent UTI previously ascribed to [...] states he has been attending HD in [place], [place], as well as, attending infusion suite. Health/Prescription Coverage: Primary Insurance: Medicare A+B Secondary Insurance: BCBS Prescription Coverage: BCBS Preferred Pharmacy: [facility] in [place], [place] Other: [facility] Primary Care Provider: Urbano Denis DO [phone] Patient/Caregiver Goals of Treatment: Resolve infection for [...] home with antibiotics. Aarti Appiah RN Pager: [phone] * Consult Note - Yeimi Elam - [...] transplant renal pelvis and ligation of left [place]ag[place] ureter in joint case with Urology and [...] uneventfully. He was transferred to [facility] last night after being admitted at OSH [...] EXTREMITY performed by Que Amaro MD at [facility] OR ??? Pro transplantation of kidney N/A 09/16/2015 @KIDNEY TRANSPLANT, WITHOUT RECIPIENT NEPHRECTOMY performed by Franko Larkin MD at [facility] OR ??? Pro transplant, prep cadaver renal graft N/A 09/16/2015 @PREPARATION CADAVERIC RENAL ALLOGRAFT performed by Franko Larkin MD at [facility] OR ??? N/A 09/16/2015 ORGAN ACQUISITION RENAL, CADAVERIC performed by Franko Larkin MD at [facility] OR ??? Pro reimplant ureter, single ureter Left 05/20/2016 @URETERONEOCYSTOSTOMY ANASTOMOSIS OF SINGLE URETER TO BLADDER performed by Santosh Arredondo MD at [facility] OR ??? Pro reimplant ureter, single ureter N/A 05/20/2016 @URETERONEOCYSTOSTOMY ANASTOMOSIS OF SINGLE URETER TO BLADDER performed by uQe Amaro MD at [facility] OR Social History: Social History Social History [...] EST TH Visit (TeleHealth) Cardiology at [address] [address] Byron Brown MD [facility] [place] [address] 07/14/2024 10:00 AM EST Hospital Encounter [place] [address] Arrived documented as of this [...] (06/25/2016 7:57 AM EST) Tacrolimus 6.1 ng/mL [facility] Comment: Trough therapeutic: ??5-15 ng/mL Performed by ultra-performance liquid chromatography tandem mass spectrometry (UPLCMS/MS). Blood specimen (specimen) 06/25/2016 7:57 AM EST 06/25/2016 9:15 AM EST Narrative Resulting Agency Comment Spec In Lab Tal Eagle MD CHEMISTRY ORDERAB LES [facility] [place] [address] * Differential, Automated (06/24/2016 6:24 AM EST) Pathologist [facility] Neutrophil % 68.7 % [facility] Neutrophil Absolute 5.68 1.70 - 6.10 x10(3)/[facility] LAB[facility] Lymph % 16.3 % [facility] Lymphocytes Abs 1.4 0.9 - 3.2 x10(3)/[facility]ORY Monocyte % 10.7 % [facility] Monocyte Abs 0.9 0.3 - 0.9 x10(3)/[facility]ATORY Eos % 3.5 % [facility] Eosinophils Abs 0.3 0.0 - 0.4 x10(3)/[facility]ORY Basophil % 0.6 % [facility] Baso Absolute 0.0 0.0 - 0.1 x10(3)/[facility] LABORATORY Immature Gran % 0.20 % [facility] Comment: Immature granulocytes(IG's)percentage and absolute count will include metamyelocytes, myelocytes, and promyelocytes. Blood smears from CBCs yielding IG's will be scanned manually for concordance. If this scan disagrees with the automated IG or if promyelocytes are noted, a manual differential will be performed. Immature Gran Absolute 0.02 0.00 - 0.04 x10(3)/[facility]ORY Blood specimen (specimen) 06/24/2016 6:24 AM EST 06/24/2016 6:37 AM EST Narrative Resulting Agency Comment Spec In Lab Tal Eagle MD HEMATOLOGY ORDERA BLES [facility] [place] [address] * (ABNORMAL) Hemogram (06/24/2016 6:24 AM EST) White Blood Cell 8.3 4.0 - 9.5 x10(3)/mc L [facility] Red Blood Cell 3.95(L) 4.58 - 5.54 x10(6)/mc L [facility] Hemoglobin 12.6(L) 13.7 - 16.5 gm/dL [facility] Hematocrit 36.0(L) 40.5 - 48.5 % [facility] Mean Cell Volume 91.1 82.9 - 93.1 fL [facility] Mean Cell Hemoglobin 31.9 27.5 - 32.1 pg [facility] Mean Cell Hemoglobin Concentration 35.0 32.0 - 35.7 gm/dL [facility] Platelet 139(L) 145 - 357 x10(3)/mc L [facility] RDW Standard Deviation 41.6 36.0 - 45.0 [facility] RDW coefficient of variation 12.5 11.4 - 13.8 % [facility] Mean Platelet Volume 9.7 7.6 - 12.9 fL [facility] NRBC% auto 0.0 % [facility] NRBC Absolute 0.000 0.000 - 0.000 x10(3)/mc L [facility] Blood specimen (specimen) 06/24/2016 6:24 AM EST 06/24/2016 6:37 AM EST Narrative Resulting Agency Comment Spec In Lab Tal Eagle MD HEMATOLOGY ORDERA BLES [facility] [address] * (ABNORMAL) Basic Metabolic Panel (non-fasting) (06/24/2016 6:24 AM EST) Glucose 150 65 - 199 mg/dL [facility] Comment:Diabetes: >=200 mg/d L plus symptoms Blood Urea Nitrogen 16 10 - 20 mg/dL [facility] Creatinine 1.12 0.80 - 1.50 mg/dL [facility] Comment: Please note that the pediatric reference intervals supplied above were not validated at [facility]. Results from pediatric patients should be interpreted in conjunction to the patient's age, height and muscle mass. Sodium 137 135 - 145 mmol/L [facility] Potassium 3.5 3.5 - 5.0 mmol/L [facility] Comment: Please note: ??Patients with WBC >100,000 may have falsely elevated Potassium levels. ??For accurate Potassium quantification in these patients send serum separator tube (gold top) for subsequent determinations. ??Contact the Clinical Chemistry Laboratory if there are any questions. Chloride 95(L) 98 - 107 mmol/L [facility] Carbon Dioxide 26 22 - 31 mmol/L [facility] Anion Gap 16(H) 5 - 15 mmol/L [facility] Calcium 8.9 8.5 - 10.5 mg/dL [facility] Est Glomerular Filtration Rate >60 >=60 [facility] Comment: [...] the following links into your internet browser. http://[employer]/DHnkdep http://[employer]/DHMCnkf Blood specimen (specimen) 06/24/2016 6:24 AM EST 06/24/2016 6:37 AM EST Narrative Resulting Agency Comment Spec In Lab Tal Eagle MD CHEMISTRY ORDERAB LES Performing Organization Address [facility] Co de Phone Number [facility] [place] [address] * Tacrolimus level (06/23/2016 8:04 AM EST) Pathologist [facility] Tacrolimus <3.0 ng/mL [facility] Comment: Trough therapeutic: ??5-15 ng/mL Performed by ultra-performance liquid chromatography tandem mass spectrometry (UPLCMS/MS). Blood specimen (specimen) 06/23/2016 8:04 AM EST 06/23/2016 11:47 AM EST Narrative Resulting Agency Comment Spec In Lab Tal Eagle MD CHEMISTRY ORDERAB LES Performing Organization Address [facility] Co de Phone Number [facility] [place] [place] [address] * Scan, Peripheral Blood (06/22/2016 10:00 PM EST) [facility] Plat estimate Decreased [facility] RBC Morphology Normal [facility] Dohle Bodies Present [facility] Plat, Giant Less than 1 /HPF [facility] Blood specimen (specimen) 06/22/2016 10:00 PM EST 06/22/2016 10:07 PM EST Narrative Resulting Agency Comment Spec In Lab Tal Eagle MD HEMATOLOGY ORDERA BLES Performing Organization Address [facility] Co de Phone Number [facility] [place] [address] * (ABNORMAL) Differential, Automated (06/22/2016 10:00 PM EST) Pathologist [facility] Neutrophil % 79.6 % [facility] Neutrophil Absolute 11.01(H) 1.70 - 6.10 x10(3)/mc L [facility] Lymph % 7.2 % [facility] Lymphocytes Abs 1.0 0.9 - 3.2 x10(3)/[facility] Monocyte % 12.4 % [facility] Monocyte Abs 1.7(H) 0.3 - 0.9 x10(3)/[facility] Eos % 0.3 % [facility] Eosinophils Abs 0.0 0.0 - 0.4 x10(3)/[facility] Basophil % 0.2 % [facility] Baso Absolute 0.0 0.0 - 0.1 x10(3)/[facility] Immature Gran % 0.30 % [facility] Comment: Immature granulocytes(IG's)percentage and absolute count will include metamyelocytes, myelocytes, and promyelocytes. Blood smears from CBCs yielding IG's will be scanned manually for concordance. If this scan disagrees with the automated IG or if promyelocytes are noted, a manual differential will be performed. Immature Gran Absolute 0.04 0.00 - 0.04 x10(3)/[facility] Blood specimen (specimen) 06/22/2016 10:00 PM EST 06/22/2016 10:07 PM EST Narrative Resulting Agency Comment Spec In Lab Tal Eagle MD HEMATOLOGY ORDERA BLES [facility] [place] [address] * (ABNORMAL) Hemogram (06/22/2016 10:00 PM EST) White Blood Cell 13.8(H) 4.0 - 9.5 x10(3)/[facility] Red Blood Cell 4.03(L) 4.58 - 5.54 x10(6)/[facility] Hemoglobin 12.8(L) 13.7 - 16.5 gm/dL [facility] Hematocrit 36.5(L) 40.5 - 48.5 % [facility] Mean Cell Volume 90.6 82.9 - 93.1 fL [facility] Mean Cell Hemoglobin 31.8 27.5 - 32.1 pg [facility] Mean Cell Hemoglobin Concentration 35.1 32.0 - 35.7 gm/dL [facility] Platelet 138(L) 145 - 357 x10(3)/mc L [facility] RDW Standard Deviation 41.4 36.0 - 45.0 fL [facility] RDW coefficient of variation 12.4 11.4 - 13.8 % [facility] Mean Platelet Volume 9.8 7.6 - 12.9 fL [facility] NRBC% auto 0.0 % [facility] NRBC Absolute 0.000 0.000 - 0.000 x10(3)/mc L [facility] Blood specimen (specimen) 06/22/2016 10:00 PM EST 06/22/2016 10:07 PM EST Narrative Resulting Agency Comment Spec In Lab Tal Eagle MD HEMATOLOGY ORDERA BLES Performing Organization Address City/[facility] Co de Phone Number [facility] [place] [address] * (ABNORMAL) APTT (06/22/2016 10:00 PM EST) [facility] Signature Partial Thromboplastin Time 36(H) 25 - 35 sec [facility] Comment: The recommended therapeutic range for full dose, unfractionated heparin at [facility] is 80 ? 114 seconds. The use of the anti-Xa (heparin) level rather than the PTT is recommended for monitoring anticoagulation intensity in critically ill patients receiving unfractionated heparin by continuous IV infusion. Blood specimen (specimen) 06/22/2016 10:00 PM EST 06/22/2016 10:07 PM EST Narrative Resulting Agency Comment Spec In Lab Tal Eagle MD HEMATOLOGY ORDERA BLES [facility] [place] [address] * Prothrombin Time (06/22/2016 10:00 PM EST) Pathologist [facility] Prothrombin Time 15.0 12.0 - 15.0 sec [facility] Comment: An [...] International Normalization Ratio 1.1 0.9 - 1.1 [facility] Blood specimen (specimen) 06/22/2016 10:00 PM EST 06/22/2016 10:07 PM EST Narrative Resulting Agency Comment Spec In Lab Tal Eagle MD HEMATOLOGY ORDERA BLES Performing Organization Address [facility] Co de Phone Number [facility] [place] [address] * Lactate, whole blood, send to lab (06/22/2016 8:51 PM EST) Pathologist [facility] Lactate WB 0.9 0.5 - 2.2 mmol/L [facility] Blood specimen (specimen) 06/22/2016 8:51 PM EST 06/22/2016 8:59 PM EST Narrative Resulting Agency Comment Spec In Lab Tal Eagle MD CHEMISTRY ORDERAB LES Performing Organization Address [facility] Co de Phone Number [facility] [place] [address] * EKG 12 Lead (06/22/2016 8:24 PM EST) Ventricular rate 85 BPM MUSE SYSTEM Atrial Rate 85 BPM MUSE SYSTEM P-R Interval 162 ms MUSE SYSTEM QRS Duration 96 ms MUSE SYSTEM Q-T Interval 370 ms MUSE SYSTEM QTC Calculated (Bezet) 440 ms MUSE SYSTEM Calculated P [place] 1 degrees MUSE SYSTEM Calculated R [place] -54 degrees MUSE SYSTEM Calculated T [place] -5 degrees MUSE SYSTEM INTERPRETATION Sinus rhythm with Premature atrial complexes Left anterior fascicular block Abnormal ECG When compared with ECG of 23-APR-2016 11:35, No significant change was found Confirmed by MD STEWART ARMIN ([id number]) on 06/23/2016 3:19:39 PM MUSE SYSTEM 06/22/2016 8:24 PM EST 06/23/2016 3:19 PM EST Tal Eagle MD ECG ORDERABLES MUSE SYSTEM * (ABNORMAL) Comprehensive metabolic panel (non-fasting) (06/22/2016 8:16 PM EST) Glucose 137 65 - 199 mg/dL [facility] Comment:Diabetes: >=200 mg/d L plus symptoms Blood Urea Nitrogen 15 10 - 20 mg/dL [facility] Creatinine 1.23 0.80 - 1.50 mg/dL [facility] Comment: Please note that the pediatric reference intervals supplied above were not validated at [facility]. Results from pediatric patients should be interpreted in conjunction to the patient's age, height and muscle mass. Sodium 132(L) 135 - 145 mmol/L [facility] [...] [facility] Protein, Total 7.4 6.1 - 8.0 gm/dL [facility] Albumin 3.4 3.2 - 5.2 gm/dL [facility] Aspartate Aminotransferase Not Perf 0 - 39 unit/L [facility] Comment: Unable to quantitate due to sample hemolysis. ??Sample redraw suggested. called to Mark Barba Alanine Aminotransferase 13 0 - 55 unit/L [facility] Alkaline Phosphatase 59 40 - 120 unit/L [facility] Bilirubin, Total 2.4(H) 0.2 - 1.3 mg/dL [facility] Bilirubin, Direct 0.5(H) 0.0 - 0.3 mg/dL [facility] Est Glomerular Filtration Rate 59(L) >=60 [facility] Comment: [...] the following links into your internet browser. http://[employer]/DHnkdep http://[employer]/DHMCnkf Blood specimen (specimen) 06/22/2016 8:16 PM EST 06/22/2016 8:26 PM EST Narrative Resulting Agency Comment Spec In Lab Tal Eagle MD CHEMISTRY ORDERAB LES Performing Organization Address City/[facility] Co de Phone Number [facility] [place] [address] * Blood culture (06/22/2016 8:16 PM EST) Blood Culture No growth at 5 days. [facility] Blood specimen (specimen) 06/22/2016 8:16 PM EST 06/22/2016 8:44 PM EST Comment:DRAW BLOOD CULTURES BEFORE ADMINISTERING ANTIBIOTICS Narrative Resulting Agency Comment Spec In Lab Tal Eagle MD MICROBIOLOGY - BL OOD ORDERABLES Performing Organization Address [facility]/ZIP Co de Phone Number [facility] [address] * Blood culture (06/22/2016 8:16 PM EST) Blood Culture No growth at 5 days. [facility] Blood specimen (specimen) 06/22/2016 8:16 PM EST 06/22/2016 8:44 PM EST Comment:DRAW BLOOD CULTURES BEFORE ADMINISTERING ANTIBIOTICS Narrative Resulting Agency Comment Spec In Lab Tal Eagle MD MICROBIOLOGY - BL OOD ORDERABLES Performing Organization Address City/[facility]/ZIP Co de Phone Number [facility] [place] [address] * Urine culture (06/22/2016 8:12 PM EST) Urine Culture No growth (Less than 1,000 cfu/ml). [facility] Urine specimen obtained by clean catch procedure (specimen) 06/22/2016 8:12 PM EST 06/22/2016 8:59 PM EST Narrative Resulting Agency Comment Spec In Lab Tal Eagle MD MICROBIOLOGY - GE NERAL ORDERABLES Performing Organization Address City/[facility]/ZIP Co de Phone Number [facility] [place] [address] * Urine Hold (06/22/2016 8:12 PM EST) Hold, Urine Sample in lab. [facility] Urine specimen (specimen) Urine / Unknown 06/22/2016 8:12 PM EST 06/22/2016 8:35 PM EST Tal Eagle MD URINE ORDERABLES Performing Organization Address City/[facility]/ZIP Co de Phone Number [facility] [place] [place] [address] * (ABNORMAL) Urinalysis with reflex Culture (06/22/2016 [...] [facility] Leukocytes, Urine Dipstick Large(A) Negative [facility] Appearance, Urine Dipstick Clear Clear [facility] Specific [place] Urine Automated 1.011 1.002 - 1.030 [facility] Color, Urine Dipstick Yellow Yellow [facility] RBC, Urine 4(H) 0 - 3 /HPF [facility] WBC, Urine 42(H) 0 - 3 /HPF [facility] WBC Clumps, Urine Rare(A) None /HPF [facility] Bacteria, Urine Rare(A) None /HPF [facility] Renal Epithelial Cells, Urine <1(H) <=0 /HPF [facility] Reflex to Culture Yes [facility] Urine specimen obtained by clean catch procedure (specimen) 06/22/2016 8:12 PM EST 06/22/2016 8:34 PM EST Narrative Resulting Agency Comment Spec In Lab Tal Eagle MD URINE ORDERABLES [facility] [place] [address] documented in this encounter Visit Diagnoses Diagnosis [...] 06/22/16 at 2100, Until Discontinued, Routine Given 06/25/2016 [...] Provider: Ryan Fuchs RN)7 (Given - Provider: Sonai Collins RN) 0807 (Given - Provider: Gonzalo Granados, JADEN) aspirin chewable tablet 81 mg (CANCELED) 81 mg, Oral, DAILY, First dose on Thu06/22/16 at 2015, Until Discontinued, Routine 911 (Given - Provider: Sonia Collins, JADEN) calciTRIol (ROCALTROL) capsule 0.5 mcg 0.5 [...] RN) 09 (Given - Provider: Ryan Fuchs RN)2035 (Given [...] Escalante RN)1138 (Given - Provider: Sonia Collins RN)2126 (Given - Provider: Brenda Escalante RN) 0342 [...] Fuchs RN)171 (Given - Provider: Ryan Fuchs RN)203 (Given - Provider: Sonia Collins RN) 0806 [...] 0.4 mg, Oral, NIGHTLY, First dose on Sun 18/16 at 2100, Until Discontinued, DO NOT CRUSH [...] 1953 (Given - Provider: Aubrey Abraham RN) 0346 (Given - Provider: Brenda Escalante, [...] Other, Starting on Thu06/23/16 at 1447, Until Tu06/24/16 at 0642, This alert will be scheduled by a pharmacist after order placement. This order is a reminder to nursing staff to release and draw the PRN drug level at the specified time. It may be necessary to contact phlebotomy 60 minutes prior to the scheduled due time to assure a timely blood draw. documented in this encounter Care Teams Construction Supervisor Relationship Specialty Start Date End Date Urbano Denis DO [address] [place] [address] [address] [place] [address] PCP - General 09/03/12 03/17/22 Hai STANLEY,Ruchi Nurse Clinic Transplant Surgery 07/30/15 documented as of this encounter
--- OUTSIDE RECORDS SUMMARY | 2024-05-16 17:29 | XMS_ITS | Encounter Summary ---
Author Organization [facility] Address [facility] [place] [address] Care Team Providers Care Veneer Layer Name Role Phone Urbano Denis DO Primary Care Provider [phone] Encounter Details Date Type Department Care Team (Late st Contact Info) Description 07/08/2016 10:30 AM EST Office Visit [place] [address] Jennifer Amaro MD [facility] [place] [address] Kidney replaced by transplant Social History Tobacco [...] EXTREMITY performed by Jennifer Amaro MD at [facility] MAIN OR ??? Pro transplantation of kidney N/A 09/16/2015 @KIDNEY TRANSPLANT, WITHOUT RECIPIENT NEPHRECTOMY performed by Franko Larkin MD at [facility] MAIN OR ??? Pro transplant, prep cadaver renal graft N/A 09/16/2015 @PREPARATION CADAVERIC RENAL ALLOGRAFT performed by Franko Larkin MD at [facility] MAIN OR ??? N/A 09/16/2015 ORGAN ACQUISITION RENAL, CADAVERIC performed by Franko Larkin MD at [facility] MAIN OR ??? Pro reimplant ureter, single ureter Left 05/20/2016 @URETERONEOCYSTOSTOMY ANASTOMOSIS OF SINGLE URETER TO BLADDER performed by Santosh Arredondo MD at [facility] OR ??? Pro reimplant ureter, single ureter N/A 05/20/2016 @URETERONEOCYSTOSTOMY ANASTOMOSIS OF SINGLE URETER TO BLADDER performed by Jennifer Amaro MD at [facility] OR Family History: No [...] EXTREMITY performed by Jennifer Amaro MD at [facility] OR ??? Pro transplantation of kidney N/A 09/16/2015 @KIDNEY TRANSPLANT, WITHOUT RECIPIENT NEPHRECTOMY performed by Franko Larkin MD at [facility] OR ??? Pro transplant, prep cadaver renal graft N/A 09/16/2015 @PREPARATION CADAVERIC RENAL ALLOGRAFT performed by Franko Larkin MD at [facility] OR ??? N/A 09/16/2015 ORGAN ACQUISITION RENAL, CADAVERIC performed by Franko Larkin MD at [facility] OR ??? Pro reimplant ureter, single ureter Left 05/20/2016 @URETERONEOCYSTOSTOMY ANASTOMOSIS OF SINGLE URETER TO BLADDER performed by Santosh Arredondo MD at [facility] MAIN OR ??? Pro reimplant ureter, single ureter N/A 05/20/2016 @URETERONEOCYSTOSTOMY ANASTOMOSIS OF SINGLE URETER TO BLADDER performed by Jennifer Amaro MD at [facility] MAIN OR Family History: No family [...] EST TH Visit (TeleHealth) Cardiology at [address] [phone] Byron Brown MD [facility] [place] [place] [address] 07/14/2024 10:00 AM EST Hospital Encounter [place] [address] Arrived documented as of this encounter Results * Urinalysis with reflex Culture (07/08/2016 8:57 AM EST) Glucose, Urine Dipstick Negative Negative mg/dL [facility] [...] Clear Clear [facility] Specific [place] Urine Automated 1.020 1.002 - 1.030 [facility] Color, Urine Dipstick Yellow Yellow [facility] RBC, Urine 2 0 - 3 /HPF [facility] WBC, Urine 3 0 - 3 /HPF [facility] Reflex to Culture No [facility] Urine specimen obtained by clean catch procedure (specimen) 07/08/2016 8:57 AM EST 07/08/2016 9:02 AM EST Narrative Resulting Agency Comment Spec In Lab Jennifer Amaro MD URINE ORDERABL ES Performing Organization Address [facility] Co de Phone Number [facility] [place] [place] [address] * (ABNORMAL) Protein/Creatinine Ratio, urine (07/08/2016 8:57 AM EST) Creatinine, Urine 124 mg/dL [facility] Protein, Urine 15(H) 0 - 12 mg/dL [facility] Protein / Creatinine Ratio, Urine 0.1 ratio [facility] Urine specimen (specimen) 07/08/2016 8:57 AM EST 07/08/2016 9:03 AM EST Narrative Resulting Agency Comment Spec In Lab Jennifer Amaro MD URINE ORDERABL ES Performing Organization Address [facility] Co de Phone Number [facility] [place] [address] * Uric acid (07/08/2016 8:56 AM EST) Uric Acid 7.1 3.5 - 8.5 mg/dL [facility] Blood specimen (specimen) 07/08/2016 8:56 AM EST 07/08/2016 9:03 AM EST Narrative Resulting Agency Comment Spec In Lab Jennifer Amaro MD CHEMISTRY ORDE RABLES Performing Organization Address [facility] Co de Phone Number [facility] [place] [address] * Tacrolimus level (07/08/2016 8:56 AM EST) Tacrolimus 5.5 ng/mL [facility] Comment: Trough therapeutic: ??5-15 ng/mL Performed by ultra-performance liquid chromatography tandem mass spectrometry (UPLCMS/MS). Blood specimen (specimen) 07/08/2016 8:56 AM EST 07/08/2016 10:54 AM EST Narrative Resulting Agency Comment Spec In Lab Jennifer Amaro MD CHEMISTRY ROCHELLE JENNINGS Performing Organization Address [facility] Co de Phone Number [facility] [place] [address] * Reticulocyte Count (07/08/2016 8:56 AM EST) Reticulocyte % 2.3 0.7 - 2.6 % [facility] Retic Abs # 0.110 0.030 - 0.120 x10(6)/mcL [facility] Immature Retic% 4.9 0.0 - 15.6 % [facility] Reticulated Hgb 37.2 31.3 - 40.2 pg [facility] Blood specimen (specimen) 07/08/2016 8:56 AM EST 07/08/2016 9:03 AM EST Narrative Resulting Agency Comment Spec In Lab Jennifer Amaro MD HEMATOLOGY ORD ERABLES Performing Organization Address [facility] Co de Phone Number [facility] [place] [address] * Phosphorus (07/08/2016 8:56 AM EST) Phosphorus 2.8 2.5 - 4.5 mg/dL [facility] Blood specimen (specimen) 07/08/2016 8:56 AM EST 07/08/2016 9:03 AM EST Narrative Resulting Agency Comment Spec In Lab Jennifer Amaro MD CHEMISTRY ROCHELLE JENNINGS Performing Organization Address [facility] Co de Phone Number [facility] [place] [address] * (ABNORMAL) Magnesium (07/08/2016 8:56 AM EST) Magnesium 0.62(L) 0.69 - 1.07 mmol/L [facility] Blood specimen (specimen) 07/08/2016 8:56 AM EST 07/08/2016 9:03 AM EST Narrative Resulting Agency Comment Spec In Lab Jennifer Amaro MD CHEMISTRY ROCHELLE JENNINGS [facility] [place] [address] * (ABNORMAL) Comprehensive metabolic panel (non-fasting) (07/08/2016 8:56 AM EST) Glucose 258(H) 65 - 199 mg/dL [facility] Comment:Diabetes: >=200 mg/d L plus symptoms Blood Urea Nitrogen 14 10 - 20 mg/dL [facility] Creatinine 1.28 0.80 - 1.50 mg/dL [facility] Comment: Please note that the pediatric reference intervals supplied above were not validated at [facility]. Results from pediatric patients should be interpreted in conjunction to the patient's age, height and muscle mass. Sodium 136 135 - 145 mmol/L [facility] Potassium 3.9 3.5 - 5.0 mmol/L [facility] Comment: Please note: ??Patients with WBC >100,000 may have falsely elevated Potassium levels. ??For accurate Potassium quantification in these patients send serum separator tube (gold top) for subsequent determinations. ??Contact the Clinical Chemistry Laboratory if there are any questions. Chloride 97(L) 98 - 107 mmol/L [facility] Carbon Dioxide 23 22 - 31 mmol/L [facility] Anion Gap 16(H) 5 - 15 mmol/L [facility] Calcium 9.7 8.5 - 10.5 mg/dL [facility] Protein, Total 7.7 6.1 - 8.0 gm/dL [facility] Albumin 4.0 3.2 - 5.2 gm/dL [facility] Aspartate Aminotransferase 23 0 - 39 unit/L [facility] Alanine Aminotransferase 24 0 - 55 unit/L [facility] Alkaline Phosphatase 82 40 - 120 unit/L [facility] Bilirubin, Total 1.6(H) 0.2 - 1.3 mg/dL [facility] Bilirubin, Direct 0.3 0.0 - 0.3 mg/dL [facility] Est Glomerular Filtration Rate 56(L) >=60 [facility] Comment: This [...] the following links into your internet browser. [email or web address] Blood specimen (specimen) 07/08/2016 8:56 AM EST 07/08/2016 9:03 AM EST Narrative Resulting Agency Comment Spec In Lab Jennifer Amaro MD CHEMISTRY ROCHELLE JENNINGS [facility] Organization Address City/State/ZIP Co de Phone Number [facility] [place] [address] * Cholesterol, total (07/08/2016 8:56 AM EST) Cholesterol, Total 151 <=239 mg/dL [facility] Lipid Interpretation See Note [facility] Comment: Lipid management should be guided by a patient? s ASCVD risk, goals and preferences. ACC/AHA Guidelines recommend high intensity statin if clinical ASCVD or LDL greater than or equal to 190 mg/dL. http://circ.ahajournals.org/content/early/.cir.9628711449.14467.7a Adults aged 40-75 with LDL 70-189 mg/dL should have their 10 year ASCVD risk estimated with the ACC/AHA ASCVD risk construction cost estimator http://tools.acc.org/RVDLB-Dqng-Yzahucjrm/ Statin should be discussed if risk greater [...] Lab Jennifer Amaro MD CHEMISTRY ROCHELLE JENNINGS [place] [id number] documented in this encounter Visit Diagnoses Diagnosis Kidney replaced by transplant documented in this encounter Care Teams Veneer Layer Relationship Specialty Start Date End Date Urbano Denis DO [address] [place] [address] PCP - General 09/03/12 03/17/22 Ruchi Valles RN Nurse Clinic Transplant Surgery 07/30/15 documented as of this encounter
--- OUTSIDE RECORDS SUMMARY | 2024-05-16 17:29 | XMS_ITS | Encounter Summary ---
Author Organization [facility] [place] [address] Care Team Providers Care Campus Dean Name Role Phone AdeelUrbano toscano Primary Care Provider [phone] Encounter Details Date Type Department Care Team (Late st Contact Info) Description 08/08/2016 [place] [phone] Franko Kim MD [facility] [place] [address] Chronic hepatitis C without hepatic coma Social [...] AM EST Visit (TeleHealth) Cardiology at [address] [phone] Byron Brown MD [facility] [place] [address] 07/14/2024 10:00 AM EST Hospital Encounter Non-[place]vasive [place] [address] Arrived documented as of this encounter Visit Diagnoses Diagnosis Chronic hepatitis C without hepatic coma documented in this encounter Care Teams Campus Dean Relationship Specialty Start Date End Date Adeel DO Urbano [address] [place] [address] PCP - General 09/03/12 03/17/22 Ruchi Valles RN Nurse Clinic Transplant Surgery 07/30/15 documented as of this encounter
--- OUTSIDE RECORDS SUMMARY | 2024-05-16 17:29 | XMS_ITS | Encounter Summary ---
Author Organization [facility] [place] [address] Care Team Providers Care Cd Mixer Helper Name Role Phone AdeelUrbano toscano Primary Care Provider Encounter Details Date Type Department Care Team (Late st Contact Info) Description 07/25/2016 Telephone [place] [address] Samia Escalante, RN Social History Tobacco Use [...] bodies of water. Samia Escalante, JADEN Post Philosophy Professor [facility] Solid Organ Transplant documented in this encounter Plan of Treatment Upcoming Encounters Date Type Department Care Team (Late st Contact Info) Description 06/22/2024 11:00 AM EST TH Visit (TeleHealth) Cardiology at [address] [phone] Byron Brown MD [facility] CARDIOLOGY [place], [place] [phone] 07/14/2024 10:00 AM EST Hospital Encounter Non[place] [address] Arrived documented as of this encounter Visit Diagnoses Not on filedocumented in this encounter Care Teams Cd Mixer Helper Relationship Specialty Start Date End Date Urbano Denis DO [address] [place], [place] [address]Y [facility] [address] [place] [address] PCP - General 09/03/12 03/17/22 Ruchi Valles RN Nurse Clinic Transplant Surgery 07/30/15 documented as of this encounter
--- OUTSIDE RECORDS SUMMARY | 2024-05-16 17:29 | XMS_ITS | Encounter Summary ---
Author Organization Formerly [facility], [facility] Address [facility] [place] [address] Care Team Providers Care Hydroelectric Powerplant Supervisor Name Role Phone Adeel Urbano KIRBY Primary Care Provider [phone] Reason for Visit * Reason Comments Kidney Transplant Follow-up Immunotherapy Encounter Details Date Type Department Care Team (Latest Contact Info) Description 09/15/2016 10:00 AM EDT Office Visit [place] [address] Tal Eagle MD [facility] [address] [place] [address] Kidney replaced by transplant; [facility] current use of immunosuppressive drug ; Vitamin [...] Wagner, DO - 09/15/2016 10:00 AM EDT [facility] Transplant Nephrology Follow Up Date: 09/15/16 Patient: [...] for diabetics, every 5 for non diabetics [place] kidney ultrasound looking for renal cell [...] RTC: 6 months Shadi Wagner DO Pager #[phone] I reviewed all of the above findings and assessment of Dr. Wagner, edited the above note to reflect my assessment and examination and formulated the recommendations which accurately reflect mine. * Herlinda Bell, RD - 09/15/2016 10:00 AM EDT [facility] Post Transplant Nutrition Follow Up Date: 09/16/2016 Patient: Ethel Akins Transplant Date: 09/16/15 [place] organ UNOS diagnosis: Transplant: Mr. Ethel Akins [...] 106 09/15/2016 LDL 64 09/15/2016 Assessment: This advertising copy writer reviewed patient's labs with him and [...] to see us in 6 months. This advertising copy writer encouraged patient to continue with decreased [...] EST TH Visit (TeleHealth) Cardiology at [address] [address] Byron Brown MD [facility] [place] [address] 07/14/2024 10:00 AM EST Hospital Encounter Non[place] [address] Arrived documented as of this [...] Dipstick Negative Negative [facility] Appearance, Urine Dipstick Clear Clear [facility] Specific [place] Urine Automated 1.016 1.002 - 1.030 [facility] [...] Performing Organization Address City/[facility] Co de Phone Number [facility] [place] [address] * (ABNORMAL) Protein/Creatinine Ratio, urine (09/15/2016 9:57 AM EDT) Creatinine, Urine 83 mg/dL [facility] Protein, Urine 14(H) 0 - 12 mg/dL [facility] Protein / Creatinine Ratio, Urine 0.2 ratio [facility] Urine specimen (specimen) 09/15/2016 9:57 AM EDT 09/15/2016 10:13 AM EDT Narrative Resulting Agency Comment Spec In Lab Tal Eagle MD URINE ORDERABLES Performing Organization Address City/[facility]/ZIP Co de Phone Number [facility] [place] [address] * Phosphorus, urine, random (09/15/2016 9:57 AM EDT) Phosphorus, Urine 56.0 mg/dL [facility] Urine specimen (specimen) 09/15/2016 9:57 AM EDT 09/15/2016 10:13 AM EDT Narrative Resulting Agency Comment Spec In Lab Tal Eagle MD URINE ORDERABLES Performing Organization Address [facility] Co de Phone Number [facility] [place] [address] * Calcium Creatinine Ratio, random urine (09/15/2016 9:57 AM EDT) Calcium, Urine 13.0 mg/dL [facility] Creatinine, Urine 83 mg/dL [facility] Calcium / Creatinine Ratio, Urine 0.16 ratio [facility] Urine specimen (specimen) 09/15/2016 9:57 AM EDT 09/15/2016 10:13 AM EDT Narrative Resulting Agency Comment Spec In Lab Tal Eagle MD URINE ORDERABLES Performing Organization Address [facility] Co de Phone Number [facility] [place] [address] * (ABNORMAL) Vitamin D, 25-Hydroxy (09/15/2016 9:38 [...] be considered to be insufficient or deficient. http://[employer]/DHMCnatlkidneyfoundation http://[employer]/DHMCVitD The IDS iSYS Vitamin D Immunoassay detects both 25-OH Vitamin D2 and 25-OH Vitamin D3, but only a total Vitamin D concentration is reported. Blood specimen (specimen) 09/15/2016 9:38 AM EDT 09/15/2016 12:08 PM EDT Narrative Resulting Agency Comment Spec In Lab Tal Eagle MD CHEMISTRY ORDERAB LES [facility] [place] [address] * Uric acid (09/15/2016 9:38 AM EDT) Uric Acid 7.7 3.5 - 8.5 mg/dL [facility] Blood specimen (specimen) 09/15/2016 9:38 AM EDT 09/15/2016 9:44 AM EDT Narrative Resulting Agency Comment Spec In Lab Tal Eagle MD CHEMISTRY ORDERAB LES Performing Organization Address [facility] Co de Phone Number [facility] [place] [address] * Tacrolimus level (09/15/2016 9:38 AM EDT) Tacrolimus 3.4 ng/mL [facility] Comment: Trough therapeutic: ??5-15 ng/mL Performed by ultra-performance liquid chromatography tandem mass spectrometry (UPLCMS/MS). Blood specimen (specimen) 09/15/2016 9:38 AM EDT 09/15/2016 10:07 AM EDT Narrative Resulting Agency Comment Spec In Lab Tal Eagle MD CHEMISTRY ORDERAB LES Performing Organization Address City/[facility]/ZIP Co de Phone Number [facility] [place] [address] * PTH (09/15/2016 9:38 AM EDT) Parathyroid Hormone 36 15 - 65 pg/mL [facility] Blood specimen (specimen) 09/15/2016 9:38 AM EDT 09/15/2016 9:44 AM EDT Narrative Resulting Agency Comment Spec In Lab Tal Eagle MD CHEMISTRY ORDERAB LES Performing Organization Address City/[facility]/ZIP Co de Phone Number [facility] [place] [address] * Phosphorus (09/15/2016 9:38 AM EDT) Phosphorus 3.1 2.5 - 4.5 mg/dL [facility] Blood specimen (specimen) 09/15/2016 9:38 AM EDT 09/15/2016 9:44 AM EDT Narrative Resulting Agency Comment Spec In Lab Tal Eagle MD CHEMISTRY ORDERAB LES Performing Organization Address City/[facility]/ZIP Co de Phone Number [facility] [place] [address] * Magnesium (09/15/2016 9:38 AM EDT) Magnesium 0.77 0.69 - 1.07 mmol/L [facility] Blood specimen (specimen) 09/15/2016 9:38 AM EDT 09/15/2016 9:44 AM EDT Narrative Resulting Agency Comment Spec In Lab Tal Eagle MD CHEMISTRY ORDERAB LES Performing Organization Address City/[facility]/ZIP Co de Phone Number [facility] [place] [address] * (ABNORMAL) Lipid Panel (09/15/2016 9:38 AM EDT) Cholesterol, Total 123 <=239 mg/dL [facility] Triglyceride 106 <=199 mg/dL [facility] HDL Cholesterol 38(L) >=40 mg/dL [facility] LDL Cholesterol 64 <=190 mg/dL [facility] Cholesterol/HDL Ratio 3.2 ratio [facility] Lipid Interpretation See Note [facility] Comment: Lipid management should be guided by a patient? s ASCVD risk, goals and preferences. ACC/AHA Guidelines recommend high intensity statin if clinical ASCVD or LDL greater than or equal to 190 mg/dL. http://circ.ahajournals.org/content/early/01.cir.6484516546.36274.7a Adults aged 40-75 with LDL 70-189 mg/dL should have their 10 year ASCVD risk estimated with the ACC/AHA ASCVD risk administrative support technician http://tools.acc.org/DQTYP-Tmba-Lkhwmoymn/ Statin should be discussed if risk greater [...] CHEMISTRY ORDERAB LES Performing Organization Address [facility] Co de Phone Number [facility] [place] [address] * Lavender Tube HOLD (09/15/2016 9:38 AM EDT) Lavender Hold Sample in lab. [facility] Blood specimen (specimen) 09/15/2016 9:38 AM EDT 09/15/2016 9:44 AM EDT Tal Eagle MD HEMATOLOGY ORDERA BLES Performing Organization Address [facility] Co de Phone Number [facility] [place] [address] * (ABNORMAL) Hemoglobin A1c (09/15/2016 9:38 AM EDT) Hemoglobin A1c 6.9(H) 4.3 - 5.6 % [facility] [...] Mellitus, Diabetes Care 2013; 36: Suppl. 1, R89-82 Estimated Average Glucose 151 mg/dL [facility] Comment: eAG [...] resources are available on the ADA website: http://HubCast.com/DHMCadacalc Harjeet MENDOSA, Chanel J, Philip R, et al. ??Translating the A1C assay into estimated average glucose values. ??Diabetes Care 2008:31(8):5547-0194. Blood specimen (specimen) 09/15/2016 9:38 AM EDT 09/15/2016 9:44 AM EDT Narrative Resulting Agency Comment Spec In Lab Tal Eagle MD CHEMISTRY ORDERAB LES [facility] [place] [address] * Gold Tube HOLD (09/15/2016 9:38 AM EDT) Gold Hold Sample in lab. [facility] Blood specimen (specimen) 09/15/2016 9:38 AM EDT 09/15/2016 9:44 AM EDT Tal Eagle MD CHEMISTRY ORDERAB LES [facility] [place] [address] * (ABNORMAL) CMP w/fasting Glucose (09/15/2016 9:38 AM EDT) Glucose Fasting 130(H) 65 - 99 mg/dL [facility] [...] of Diabetes Mellitus, Position Statement from the [place] Diabetes Association. ??Diabetes Care, Volume 33, Supplement 1, Jul 2009 Blood Urea Nitrogen 20 10 - 20 mg/dL [facility] Creatinine 1.30 0.80 - 1.50 mg/dL [facility] Comment: Please note that the pediatric reference intervals supplied above were not validated at [facility]. Results from pediatric patients should be interpreted in conjunction to the patient's age, height and muscle mass. Sodium 137 135 - 145 mmol/L [facility] Potassium 3.6 3.5 - 5.0 mmol/L [facility] Comment: Please note: ??Patients with WBC >100,000 may have falsely elevated Potassium levels. ??For accurate Potassium quantification in these patients send serum separator tube (gold top) for subsequent determinations. ??Contact the Clinical Chemistry Laboratory if there are any questions. Chloride 101 98 - 107 mmol/L [facility] Carbon Dioxide 24 22 - 31 mmol/L [facility] Anion Gap 12 5 - 15 mmol/L [facility] Calcium 9.7 8.5 - 10.5 mg/dL [facility] Protein, Total 7.5 6.1 - 8.0 gm/dL [facility] Albumin 4.0 3.2 - 5.2 gm/dL [facility] Aspartate Aminotransferase 15 0 - 39 unit/L [facility] Alanine Aminotransferase 16 0 - 55 unit/L [facility] Alkaline Phosphatase 62 40 - 120 unit/L [facility] Bilirubin, Total 1.2 0.2 - 1.3 mg/dL [facility] Bilirubin, Direct 0.3 0.0 - 0.3 mg/dL [facility] Est Glomerular Filtration Rate 55(L) >=60 [facility] Comment: This [...] the following links into your internet browser. http://[facility] [facility]/DHnkdep http://[employer]/DHMCnkf Blood specimen (specimen) 09/15/2016 9:38 AM EDT 09/15/2016 9:44 AM EDT Narrative Resulting Agency Comment Spec In Lab Tal Eagle MD CHEMISTRY ORDERAB LES [facility] [place] [address] * (ABNORMAL) 1,25-dihydroxycholecalciferol (09/15/2016 9:38 AM EDT) Vit D 1,25 Dihydroxy (NOVEMBER) 65(H) 18 - 64 pg/mL [facility] Comment: ADDITIONAL INFORMATION This test was developed and its performance characteristics determined by [facility] in a manner consistent with CLIA requirements. This test has not been cleared or approved by the U.S. Food and Drug Administration. Test Performed by: [facility] - [address] [address] Blood specimen (specimen) 09/15/2016 9:38 AM EDT 09/15/2016 11:07 AM EDT Narrative Resulting Agency Comment Spec In Lab Tal Eagle MD LAB SEND OUT ROCHELLE JENNINGS Performing Organization Address City/[facility]/ZIP Co de Phone Number [facility] [place] [address] * Uric acid, urine, 24 hour (09/15/2016 6:00 AM EDT) U24 Uric Conc 38.4 mg/dL [facility] Uric Acid, 24 Hour Urine 0.58 0.25 - 0.80 gm/24hr [facility] Urine specimen (specimen) 09/15/2016 6:00 AM EDT 09/15/2016 11:16 AM EDT Narrative Resulting Agency Comment Spec In Lab Tal Eagle MD URINE ORDERABLES Performing Organization Address [facility]/ZIP Co de Phone Number [facility] [place] [address] * (ABNORMAL) Protein, urine, 24 hour (09/15/2016 6:00 AM EDT) Protein Concentration, U24 14 <=80 mg/dL [facility] Protein, 24 Hour Urine 0.21(H) <=0.15 gm/24hr [facility] Urine specimen (specimen) 09/15/2016 6:00 AM EDT 09/15/2016 11:16 AM EDT Narrative Resulting Agency Comment Spec In Lab Tal Eagle MD URINE ORDERABLES Performing Organization Address [facility] Co de Phone Number [facility] [place] [address] * Phosphorus, urine, 24 hour (09/15/2016 6:00 AM EDT) Phosphorus Concentration, U24 70.2 mg/dL [facility] Phosphorus, 24 Hour Urine 1.1 0.4 - 1.3 gm/24hr [facility] Urine specimen (specimen) 09/15/2016 6:00 AM EDT 09/15/2016 11:16 AM EDT Narrative Resulting Agency Comment Spec In Lab Tal Eagle MD URINE ORDERABLES Performing Organization Address [facility] Co de Phone Number [facility] [place] [address] * Creatinine, urine, 24 hour (09/15/2016 6:00 AM EDT) Cre Concentration, U24 113 mg/dL [facility] Creatinine, 24 Hour Urine 1.70 0.80 - 1.90 gm/24hr [facility] Urine specimen (specimen) 09/15/2016 6:00 AM EDT 09/15/2016 11:16 AM EDT Narrative Resulting Agency Comment Spec In Lab Tal Eagle MD URINE ORDERABLES Performing Organization Address City/[facility]/ZIP Co de Phone Number [facility] [place] [address] * Creatinine Clearance, urine, 24 hour (09/15/2016 6:00 AM EDT) Creatinine Clearance, 24 Hour Urine 91 90 - 139 mL/min [facility] Cre Concentration, U24 113 mg/dL [facility] Creatinine, 24 Hour Urine 1.70 0.80 - 1.90 gm/24hr [facility] Urine specimen (specimen) 09/15/2016 6:00 AM EDT 09/15/2016 11:16 AM EDT Narrative Resulting Agency Comment Spec In Lab Tal Eagle MD URINE ORDERABLES Performing Organization Address [facility] Co de Phone Number [facility] [place] [address] * Calcium, urine, 24 hour (09/15/2016 6:00 AM EDT) Ca Concentration, U24 12.9 mg/dL [facility] Calcium, 24 Hour Urine 193.5 50.0 - 300.0 mg/24hr [facility] Comment:Reference Range: 50. 0-300.0 mg/24 hour based on diet. Urine specimen (specimen) 09/15/2016 6:00 AM EDT 09/15/2016 11:16 AM EDT Narrative Resulting Agency Comment Spec In Lab Tal Eagle MD URINE ORDERABLES Performing Organization Address [facility] Co de Phone Number [facility] [place] [address] documented in this encounter Visit Diagnoses Diagnosis Kidney replaced by transplant [facility] current use of immunosuppressive drug Vitamin D deficiency Unspecified vitamin D deficiency Aftercare following organ transplant CAH (chronic active hepatitis) Other chronic hepatitis Essential hypertension Unspecified essential hypertension Chronic hepatitis C without hepatic coma Ureteral stricture Stricture or kinking of ureter documented in this encounter Care Teams Hydroelectric Powerplant Supervisor Relationship Specialty Start Date End Date Urbano Denis DO [address] [place] [address] PCP - General 09/03/12 03/17/22 Ruchi Valles RN Nurse Clinic Transplant Surgery 07/30/15 documented as of this encounter
--- OUTSIDE RECORDS SUMMARY | 2024-05-16 17:29 | XMS_ITS | Encounter Summary ---
[place] [address] Care Team Providers Care Color Paste Mixer Name Role Phone AdeelUrbano toscano Primary Care Provider [phone] Reason for Visit * Reason Onset Date Comments Patient Education 09/23/2016 Encounter Details Date Type Department Care Team (Late st Contact Info) Description 08/13/2016 [place] [address] Selena Cisneros, [facility] Patient Education Social History Tobacco Use Types [...] Notes * Telephone Encounter - Selena Carias, [facility] - 10/23/2016 9:42 AM EDT [facility] Specialty Pharmacy: Clinical Management Plan Start Date: [...] yes * Telephone Encounter - Selena Carias [facility] - 10/22/2016 3:37 PM EDT [facility] Specialty Pharmacy: Clinical Management Plan Left message to follow up on Uriel. I also wanted to see how Yash was tolerating the glipizide. * Telephone Encounter - Selena Carias [facility] - 09/23/2016 10:30 AM EDT [facility] Specialty Pharmacy: Clinical Management Plan Start Date: [...] Carias [facility] - 08/13/2016 11:05 AM EST [facility] Specialty Pharmacy: Clinical Management Plan Start Date: [...] EST TH Visit (TeleHealth) Cardiology at [address] [address] Byron Brown MD [facility] [place] [address] 07/14/2024 10:00 AM EST Hospital Encounter Non[place] [phone] Arrived documented as of this encounter Goals [...] filedocumented in this encounter Care Teams Color Paste Mixer Relationship Specialty Start Date End Date Urbano Denis DO [address] [place] [address] PCP - General 09/03/12 03/17/22 Ruchi Valles RN Nurse Clinic Transplant Surgery 07/30/15 documented as of this encounter
--- OUTSIDE RECORDS SUMMARY | 2024-05-16 17:30 | XMS_ITS | Encounter Summary ---
Author Organization [facility] [place] [address] Care Team Providers Care Heavy Equipment Operator/Paver Name Role Phone Adeel Urbano KIRBY Primary Care Provider Encounter Details Date Type Department Care Team (Latest Contact Info) Description 06/03/2016 8:00 AM EST Laboratory Appointment Lab [address] [place] [address] H/O kidney transplant; H/O chronic [...] EST TH Visit (TeleHealth) Cardiology at [address] [address] Byron Brown MD [facility] [place] [address] 07/14/2024 10:00 AM EST Hospital Encounter [place] [address] Arrived Pending Results Name Type Priority Associated [...] [facility] Blood, Urine Dipstick Large(A) Negative mg/dL [facility] Ketone, Urine Dipstick Negative Negative mg/dL [facility] Nitrite, Urine Dipstick Negative Negative [facility] Leukocytes, Urine Dipstick Small(A) Negative [facility] Appearance, Urine Dipstick Hazy(A) Clear [facility] Specific [place] Urine Automated 1.023 1.002 - 1.030 [facility] Color, Urine Dipstick Yellow Yellow [facility] RBC, Urine >182(H) 0 - 3 /HPF [facility] WBC, Urine 20(H) 0 - 3 /HPF [facility] Bacteria, Urine Rare(A) None /HPF [facility] Squamous Epithelial Cells, Urine <1 <=4 /HPF [facility] Calcium Oxalate Crystal, Urine Few(A) None /HPF [facility] Reflex to Culture Dup Culture [facility] Urine specimen obtained by clean catch procedure (specimen) 06/03/2016 2:05 PM EST 06/03/2016 2:05 PM EST Narrative Resulting Agency Comment Spec In Lab Que Amaro MD URINE ORDERABL ES [facility] [place] [address] * (ABNORMAL) Differential, Automated (06/03/2016 9:52 AM EST) Pathologist [facility] Neutrophil % 85.3 % [facility] Neutrophil Absolute 11.89(H) 1.70 - 6.10 x10(3)/ L [facility] Lymph % 6.8 % [facility] Lymphocytes Abs 1.0 0.9 - 3.2 x10(3)/ L [facility] Monocyte % 5.8 % [facility] Monocyte Abs 0.8 0.3 - 0.9 x10(3)/ L [facility] Eos % 1.1 % [facility] Eosinophils Abs 0.2 0.0 - 0.4 x10(3)/[facility] Basophil % 0.6 % [facility] Baso Absolute 0.1 0.0 - 0.1 x10(3)/[facility] Immature Gran % 0.40 % [facility] Comment: Immature granulocytes(IG's)percentage and absolute count will include metamyelocytes, myelocytes, and promyelocytes. Blood smears from CBCs yielding IG's will be scanned manually for concordance. If this scan disagrees with the automated IG or if promyelocytes are noted, a manual differential will be performed. Immature Gran Absolute 0.06(H) 0.00 - 0.04 x10(3)/ L [facility] Blood specimen (specimen) 06/03/2016 9:52 AM EST 06/03/2016 9:55 AM EST Narrative Resulting Agency Comment Spec In Lab Que Amaro MD HEMATOLOGY ORD ERABLES [facility] [place] [address] * (ABNORMAL) Hemogram (06/03/2016 9:52 AM EST) Pathologist [facility] White Blood Cell 14.0(H) 4.0 - 9.5 x10(3)/ L [facility] Red Blood Cell 4.34(L) 4.58 - 5.54 x10(6)/mc L [facility] Hemoglobin 13.9 13.7 - 16.5 gm/dL [facility] Hematocrit 40.7 40.5 - 48.5 % [facility] Mean Cell Volume 93.8(H) 82.9 - 93.1 fL [facility] Mean Cell Hemoglobin 32.0 27.5 - 32.1 pg [facility] Mean Cell Hemoglobin Concentration 34.2 32.0 - 35.7 gm/dL [facility] Platelet 287 145 - 357 x10(3)/mc L [facility] RDW Standard Deviation 44.4 36.0 - 45.0 [facility] RDW coefficient of variation 13.0 11.4 - 13.8 % [facility] Mean Platelet Volume 8.6 7.6 - 12.9 [facility] NRBC% auto 0.0 % [facility] NRBC Absolute 0.000 0.000 - 0.000 x10(3)/mc L [facility] Blood specimen (specimen) 06/03/2016 9:52 AM EST 06/03/2016 9:55 AM EST Narrative Resulting Agency Comment Spec In Lab Que Amaro MD HEMATOLOGY ORD ERABLES Performing Organization Address City/[facility] Co de Phone Number [facility] [place] [place] [address] * Albumin Level (06/03/2016 9:52 AM EST) Albumin 4.0 3.2 - 5.2 gm/dL [facility] Blood specimen (specimen) 06/03/2016 9:52 AM EST 06/03/2016 9:55 AM EST Narrative Resulting Agency Comment Spec In Lab Que Amaro MD CHEMISTRY ORDBhargav JENNINGS Performing Organization Address City/[facility]/ZIP Co de Phone Number [facility] [place] [place] [address] * (ABNORMAL) Liver Fibrosis Panel (06/03/2016 9:52 AM EST) Liver Fibrosis Panel FLEXITEST 3(A) [facility] Comment: FLEXITEST 3 TESTS [...] 0.61-0.62 ?A2-A3 0.63-1.00 ?A3 ? severe activity Ovaef-6-Ntmbyhpvyipyd ? 267 ?mg/dL ??106-279 Haptoglobin ? 235 H ?mg/dL ??43-212 Apolipoprotein A1 ? 128 ?mg/dL ??94-176 Total Bilirubin ? 0.9 ?mg/dL ??0.2-1.2 GGT ?55 ?U/L ??3- 70 ALT ?28 ?U/L ??9- 46 Reference ID ?[id number] Footnote ?SEE NOTE The reliability of results [...] The performance characteristics have been determined by [facility], [place]. It has not been cleared or approved by the U.S. Food and Drug Administration. Performance characteristics refer to the analytical performance of the test. Intell[employer], the associated logo, [employer] and all associated [employer] jacobsen are the registered trademarks of [employer]. All third green party jacobsen - (R) and (TM) - are the property of their respective owners. (C) [id number] [employer] Inc[employer]. All rights reserved. Test performed by: ? [facility] ? [address] ? [place] [address] ? Phone: ??[phone] Director: ??Tanmay Huggins M.D. Test Reported by [employer] [facility], [address] [place] [address] Fer Stoll M.D., Ph.D., Director of Laboratories , [facility] [id number] Blood specimen (specimen) 06/03/2016 9:52 AM EST 06/03/2016 10:00 AM EST Narrative Resulting Agency Comment Spec In Lab Que Amaro MD LAB SEND OUT O RDERABLES Performing Organization Address City/State/[facility] Co de Phone Number [facility] [place] [place] [address] * Tacrolimus level (06/03/2016 9:52 AM EST) Tacrolimus 4.1 ng/mL [facility] Comment: Trough therapeutic: ??5-15 ng/mL Performed by ultra-performance liquid chromatography tandem mass spectrometry (UPLCMS/MS). Blood specimen (specimen) 06/03/2016 9:52 AM EST 06/03/2016 10:55 AM EST Narrative Resulting Agency Comment Spec In Lab Que Amaro MD CHEMISTRY ORDE RABLENORE Performing Organization Address City/[facility]/ZIP Co de Phone Number [facility] [place] [address] * Reticulocyte Count (06/03/2016 9:52 AM EST) Reticulocyte % 1.6 0.7 - 2.6 % [facility] Retic Abs # 0.070 0.030 - 0.120 x10(6)/mcL [facility] Immature Retic% 7.4 0.0 - 15.6 % [facility] Reticulated Hgb 36.7 31.3 - 40.2 pg [facility] Blood specimen (specimen) 06/03/2016 9:52 AM EST 06/03/2016 9:55 AM EST Narrative Resulting Agency Comment Spec In Lab Que Amaro MD HEMATOLOGY ORD ERABLES [facility] [place] [address] * Uric acid (06/03/2016 9:52 AM EST) Uric Acid 6.0 3.5 - 8.5 mg/dL [facility] Blood specimen (specimen) 06/03/2016 9:52 AM EST 06/03/2016 9:55 AM EST Narrative Resulting Agency Comment Spec In Lab Que Amaro MD CHEMISTRY ROCHELLE JENNINGS Performing Organization Address City/[facility]/ZIP Co de Phone Number [facility] [place] [address] * (ABNORMAL) Phosphorus (06/03/2016 9:52 AM EST) Phosphorus 2.4(L) 2.5 - 4.5 mg/dL [facility] Blood specimen (specimen) 06/03/2016 9:52 AM EST 06/03/2016 9:55 AM EST Narrative Resulting Agency Comment Spec In Lab Que Amaro MD CHEMISTRY ROCHELLE JENNINGS Performing Organization Address [facility] Co de Phone Number [facility] [place] [address] * (ABNORMAL) Magnesium (06/03/2016 9:52 AM EST) Magnesium 0.59(L) 0.69 - 1.07 mmol/L [facility] Blood specimen (specimen) 06/03/2016 9:52 AM EST 06/03/2016 9:55 AM EST Narrative Resulting Agency Comment Spec In Lab Que Amaro MD CHEMISTRY ROCHELLE JENNINGS Performing Organization Address [facility] Co de Phone Number [facility] [place] [address] * Cholesterol, total (06/03/2016 9:52 AM EST) Cholesterol, Total 131 <=199 mg/dL [facility] Comment: Recommendations of the NCEP Adult Treatment Panel for the following risk cutoff thresholds for the [place] population: Desirable: <200 mg/dL Borderline High: 200-239 mg/dL High: > or = 240 mg/dL Blood specimen (specimen) 06/03/2016 9:52 AM EST 06/03/2016 9:55 AM EST Narrative Resulting Agency Comment Spec In Lab Que Amaro MD CHEMISTRY ROCHELLE JENNINGS [facility] [place] [address] * (ABNORMAL) Basic Metabolic Panel (non-fasting) (06/03/2016 9:52 AM EST) Glucose 166 65 - 199 mg/dL [facility] Comment:Diabetes: >=200 mg/d L plus symptoms Blood Urea Nitrogen 16 10 - 20 mg/dL [facility] Creatinine 1.24 0.80 - 1.50 mg/dL [facility] [...] questions. Chloride 96(L) 98 - 107 mmol/L [facility] [...] the following links into your internet browser. [email or web address] Blood specimen (specimen) 06/03/2016 9:52 AM EST 06/03/2016 9:55 AM EST Narrative Resulting Agency Comment Spec In Lab Que Amaro MD [place] [address] documented in this encounter Visit Diagnoses Diagnosis H/O kidney transplant Kidney replaced by transplant H/O chronic hepatitis Personal history of other diseases of digestive system documented in this encounter Care Teams Heavy Equipment Operator/Paver Relationship Specialty Start Date End Date Urbano Denis DO [facility] [address] [place] [address] PCP - General 09/03/12 03/17/22 Ruchi Valles RN Nurse Clinic Transplant Surgery 07/30/15 documented as of this encounter
--- OUTSIDE RECORDS SUMMARY | 2024-05-16 17:30 | XMS_ITS | Encounter Summary ---
Author Organization [facility] Address [facility] [place] [address] Care Team Providers Care Pen And Pencil Repairer Name Role Phone Urbano Denis DO Primary Care Provider Encounter Details Date Type Department Care Team (Late st Contact Info) Description 06/03/2016 9:00 AM EST Office Visit [place] [address] Que Amaro MD [facility] [place] [address] H/O kidney transplant; H/O chronic hepatitis Social [...] vaccine 05/20/2021 ??? Hepatitis C screening (B. [id number]) Completed ??? Influenza (Flu) vaccine Completed ??? [...] [facility] OR ??? Pro reimplant ureter, single ureter Left 05/20/2016 @URETERONEOCYSTOSTOMY ANASTOMOSIS OF SINGLE URETER TO BLADDER performed by Santosh Arredondo MD at [facility] OR ??? Pro reimplant ureter, single ureter N/A 05/20/2016 @URETERONEOCYSTOSTOMY ANASTOMOSIS OF SINGLE URETER TO BLADDER performed by Que Amaro MD at [facility] OR FAMILY HISTORY: No family history [...] [address] RD - 06/03/2016 9:00 AM EST [facility] Post Transplant Nutrition Follow Up Date: 06/03/2016 Patient: Cody Bolden Transplant Date: 09/16/15 [place] organ UNOS diagnosis: Transplant: Mr. Cody Bolden [...] Value Date CHLPL 131 06/03/2016 Assessment: This film writer reviewed patient's labs with him and [...] EST TH Visit (TeleHealth) Cardiology at [address] [id number] Byron Brown MD [facility] [place] [address] 07/14/2024 10:00 AM EST Hospital Encounter Non-[place] [address] Arrived Pending Results Name Type Priority Associated [...] Leukocytes, Urine Dipstick Small(A) Negative [facility] Appearance, Urine Dipstick Hazy(A) Clear [facility] Specific [place] Urine Automated 1.023 1.002 - 1.030 [facility] [...] MD URINE ORDERABL ES Performing Organization Address [facility] Co de Phone Number [facility] [place] [address] * Albumin Level (06/03/2016 9:52 AM EST) Albumin 4.0 3.2 - 5.2 gm/dL [facility] Blood specimen (specimen) 06/03/2016 9:52 AM EST 06/03/2016 9:55 AM EST Narrative Resulting Agency Comment Spec In Lab Que Amaro MD CHEMISTRY ORDE RABLES Performing Organization Address [facility]/State/ZIP Co de Phone Number [facility] [place] [address] * (ABNORMAL) Liver Fibrosis Panel (06/03/2016 9:52 [...] 0.61-0.62 ?A2-A3 0.63-1.00 ?A3 ? severe activity Tajxg-3-Tmuamjldhutoo ? 267 ?mg/dL ??106-279 Haptoglobin ? 235 H ?mg/dL ??43-212 Apolipoprotein A1 ? 128 ?mg/dL ??94-176 Total Bilirubin ? 0.9 ?mg/dL ??0.2-1.2 GGT ?55 ?U/L ??3- 70 ALT ?28 ?U/L ??9- 46 Reference ID ?[id number] Footnote ?SEE NOTE The reliability of results [...] The performance characteristics have been determined by [employer], [place]. It has not been cleared or approved by the U.S. Food and Drug Administration. Performance characteristics refer to the analytical performance of the test. [employer], the associated logo, [employer] and all associated [employer] jacobsen are the registered trademarks of [employer]. All third democrat jacobsen - (R) and (TM) - are the property of their respective owners. (C) [phone] [employer]. All rights reserved. Test performed by: ? [facility] ? [address] [facility] ? [place] [address] ? Phone: ??[phone] Director: ??Tanmay Huggins M.D. Test Reported by Brittanie Sheikh, [employer], [address] [place], [place] Fer Stoll M.D., Ph.D., Director of Laboratories , [facility] [id number] Blood specimen (specimen) 06/03/2016 9:52 AM EST 06/03/2016 10:00 AM EST Narrative Resulting Agency Comment Spec In Lab Que Amaro MD LAB SEND OUT O RDERABLES [facility] [place] [address] * Tacrolimus level (06/03/2016 9:52 AM EST) Tacrolimus 4.1 ng/mL [facility] Comment: Trough therapeutic: ??5-15 ng/mL Performed by ultra-performance liquid chromatography tandem mass spectrometry (UPLCMS/MS). Blood specimen (specimen) 06/03/2016 9:52 AM EST 06/03/2016 10:55 AM EST Narrative Resulting Agency Comment Spec In Lab Que Amaro MD CHEMISTRY ORDE RABLENORE Performing Organization Address [facility] Co de Phone Number [facility] [place] [address] * Reticulocyte Count (06/03/2016 9:52 AM EST) [...] MD HEMATOLOGY ORD ERABLES Performing Organization Address [facility] Co de Phone Number [facility] [place] [address] * Uric acid (06/03/2016 9:52 AM EST) Uric Acid 6.0 3.5 - 8.5 mg/dL [facility] Blood specimen (specimen) 06/03/2016 9:52 AM EST 06/03/2016 9:55 AM EST Narrative Resulting Agency Comment Spec In Lab Que Amaro MD CHEMISTRY ROCHELLE JENNINGS Performing Organization Address [facility]/ZIP Co de Phone Number [facility] [place] [address] * (ABNORMAL) Phosphorus (06/03/2016 9:52 AM EST) Phosphorus 2.4(L) 2.5 - 4.5 mg/dL [facility] Blood specimen (specimen) 06/03/2016 9:52 AM EST 06/03/2016 9:55 AM EST Narrative Resulting Agency Comment Spec In Lab Que Amaro MD CHEMISTRY ROCHELLE JENNINGS Performing Organization Address [facility] Co de Phone Number [facility] [place] [address] * (ABNORMAL) Magnesium (06/03/2016 9:52 AM EST) Magnesium 0.59(L) 0.69 - 1.07 mmol/L [facility] Blood specimen (specimen) 06/03/2016 9:52 AM EST 06/03/2016 9:55 AM EST Narrative Resulting Agency Comment Spec In Lab Que Amaro MD CHEMISTRY ROCHELLE JENNINGS Performing Organization Address [facility] Co de Phone Number [facility] [place] [address] * Cholesterol, total (06/03/2016 9:52 AM EST) Cholesterol, Total 131 <=199 mg/dL [facility] Comment: Recommendations of the NCEP Adult Treatment Panel for the following risk cutoff thresholds for the [place] population: Desirable: <200 mg/dL Borderline High: 200-239 mg/dL High: > or = 240 mg/dL Blood specimen (specimen) 06/03/2016 9:52 AM EST 06/03/2016 9:55 AM EST Narrative Resulting Agency Comment Spec In Lab Que Amaro MD CHEMISTRY ROCHELLE JENNINGS [facility] [place] [address] * (ABNORMAL) Basic Metabolic Panel (non-fasting) (06/03/2016 9:52 AM EST) Glucose 166 65 - 199 mg/dL [facility] [...] the following links into your internet browser. [email or web address] Blood specimen (specimen) 06/03/2016 9:52 AM EST 06/03/2016 9:55 AM EST Narrative Resulting Agency Comment Spec In Lab Que Amaro MD CHEMISTRY ROCHELLE JENNINGS Performing Organization Address City/State/[facility] Co de Phone Number [facility] [place] [address] documented in this encounter Visit Diagnoses Diagnosis H/O kidney transplant Kidney replaced by transplant H/O chronic hepatitis Personal history of other diseases of digestive system documented in this encounter Care Teams Pen And Pencil Repairer Relationship Specialty Start Date End Date Urbano Denis DO [address] [place] [address] [address] [facility] [address] [place] [address] PCP - General 09/03/12 03/17/22 Ruchi Valles RN Nurse Clinic Transplant Surgery 07/30/15 documented as of this encounter
--- OUTSIDE RECORDS SUMMARY | 2024-05-16 17:30 | XMS_ITS | Encounter Summary ---
Author Organization [place] [id number] Care Team Providers Care Principal Java Software Engineer Name Role Phone Urbano Denis DO Primary Care Provider Reason for Referral * Diagnostic Test (Routine) - Closed Specialty Diagnoses / Procedures Referred By Contac t Referred To Contact Radiology Diagnoses Ureteral stricture Procedures IR all procedures Santosh Arredondo MD [facility] [place] [address] [place] [address] Referral ID Status Reason Start Date Expiration Date V isits Requested Visits Authorized [id number] Closed Specialty Service Requested 06/03/2016 06/03/2017 1 1 Reason for Visit * Diagnostic Test (Routine) - Closed Specialty Diagnoses / Procedures Referred By Contac t Referred To Contact Radiology Diagnoses Ureteral stricture Procedures IR all procedures Santosh Arredondo MD [facility] [place] [address] [place] [address] Referral ID Status Reason Start Date Expiration Date V isits Requested Visits Authorized [id number] Closed Specialty Service Requested 06/03/2016 06/03/2017 1 1 Encounter Details Date Type Department Care Team (Latest Contact Info) Description 06/09/2016 6:46 AM EST - 06/09/2016 11:59 PM EST Hospital Encounter Radiology at [facility] [place] [address] Santosh Arredondo MD [facility] [place] [address] Ureteral stricture Discharge Disposition: Home Social History [...] Tomlin RN - 06/09/2016 8:25 AM EST [facility] Vascular and Interventional Radiology Discharge Instructions For [...] is during regular office hours, please call [phone]. If it is after regular office hours, or on weekends or holidays, please call [phone] and ask to speak to the Salmon Troll Fisher installation helper for Interventional Radiology. You may resume your [...] the renal pelvis with ligation of the [place] ureter on 05/20/2016. Nephrostomy tube was capped [...] by Que Amaro MD at [facility] OR ??? Pro transplantation of kidney N/A 09/16/2015 @KIDNEY TRANSPLANT, WITHOUT RECIPIENT NEPHRECTOMY performed by Franko Larkin MD at [facility] OR ??? Pro transplant, prep cadaver renal graft N/A 09/16/2015 @PREPARATION CADAVERIC RENAL ALLOGRAFT performed by Franko Larkin MD at [facility] OR ??? N/A 09/16/2015 ORGAN ACQUISITION RENAL, CADAVERIC performed by Franko Larkin MD at [facility] OR ??? Pro reimplant ureter, single ureter Left 05/20/2016 @URETERONEOCYSTOSTOMY ANASTOMOSIS OF SINGLE URETER TO BLADDER performed by Santosh Arredondo MD at [facility] OR ??? Pro reimplant ureter, single ureter N/A 05/20/2016 @URETERONEOCYSTOSTOMY ANASTOMOSIS OF SINGLE URETER TO BLADDER performed by Que Amaro MD at [facility] OR Medications: Current Outpatient Prescriptions on File [...] of : 1950 AGE 65 y.o. Address: [address] [place] [phone] (home) [phone] (work) Mobile: Telephone Information: Referring Provider: Santosh [...] by Que Amaro MD at [facility] OR ??? Pro transplantation of kidney N/A 09/16/2015 @KIDNEY TRANSPLANT, WITHOUT RECIPIENT NEPHRECTOMY performed by Franko Larkin MD at [facility] OR ??? Pro transplant, prep cadaver renal graft N/A 09/16/2015 @PREPARATION CADAVERIC RENAL ALLOGRAFT performed by Franko Larkin MD at [facility] OR ??? N/A 09/16/2015 ORGAN ACQUISITION RENAL, CADAVERIC performed by Franko Larkin MD at [facility] OR ??? Pro reimplant ureter, single ureter Left 05/20/2016 @URETERONEOCYSTOSTOMY ANASTOMOSIS OF SINGLE URETER TO BLADDER performed by Santosh Arredondo MD at [facility] OR ??? Pro reimplant ureter, single ureter N/A 05/20/2016 @URETERONEOCYSTOSTOMY ANASTOMOSIS OF SINGLE URETER TO BLADDER performed by Que Amaro MD at [facility] OR Date/Procedure? Med's given/comments 01/08/2015: [...] the renal pelvis with ligation of the [place] ureter on 05/20/2016. Nephrostomy tube was capped [...] EST TH Visit (TeleHealth) Cardiology at [address] [address] Byron Brown MD [facility] [place] [address] 07/14/2024 10:00 AM EST Hospital Encounter Non-[place] [address] Arrived documented as of this [...] and removal. ?? Indication for Procedure: Per Ethel Gonzales Yuan [...] the renal pelvis with ligation of the [place] ureter on 05/20/2016. Nephrostomy tube was capped [...] performed this procedure. Santosh Arredondo MD [facility] IR ORDERABLES [...] mg documented in this encounter Care Teams Principal Java Software Engineer Relationship Specialty Start Date End Date Urbano Denis DO [address] [place] [address] PCP - General 09/03/12 03/17/22 Ruchi Valles RN Nurse Clinic Transplant Surgery 07/30/15 documented as of this encounter
--- OUTSIDE RECORDS SUMMARY | 2024-05-16 17:30 | XMS_ITS | Encounter Summary ---
Author Organization [facility] Address [facility] [place] [address] Care Team Providers Care Manager Practice Name Role Phone Urbano Denis DO Primary Care Provider [phone] Reason for Visit * Reason Comments Follow-up Encounter Details Date Type Department Care Team (Late st Contact Info) Description 06/18/2016 1:20 PM EST [place] [address] Santosh Arredondo MD [facility] [place] [address] S/P kidney transplant (Primary Dx) Social History [...] flap. He also underwent ligatio of the [place] LEFT ureter 09/17/2015 Donor renal transplant for [...] the renal pelvis with ligation of the [place] ureter. 05/28/2016 Discharged after post op course [...] ??? Hematuria PSHx Bilateral inguinal hernias with [id number] Shoulder surgery Knee arthroscopy Vasectomy Medications: Reviewed [...] sp donor transplantation.sp Boari flap. Ligation of [place] left ureter #2: Hx of staph and [...] EST TH Visit (TeleHealth) Cardiology at [address] [address] Byron Brown MD [facility] [place] [address] 07/14/2024 10:00 AM EST Hospital Encounter Non-Invasive [place] [phone] Arrived documented as of this encounter Procedures [...] documented in this encounter Care Teams Manager Practice Relationship Specialty Start Date End Date Urbano Denis DO [address] [place] [address] PCP - General 09/03/12 03/17/22 Ruchi Valles RN Nurse Clinic Transplant Surgery 07/30/15 documented as of this encounter
--- OUTSIDE RECORDS SUMMARY | 2024-05-16 17:30 | XMS_ITS | Encounter Summary ---
Author Organization [facility] [place] [address] Care Team Providers Care Access Consultant Name Role Phone AdeelUrbano toscano Primary Care Provider Encounter Details Date Type Department Care Team (Late st Contact Info) Description 06/10/2016 Abstract [place] [address] Chapin Lehman, [employer] Social History Tobacco Use Types Packs/Day Years [...] EST TH Visit (TeleHealth) Cardiology at [address] [address] Byron Brown MD [facility] [place] [address] 07/14/2024 10:00 AM EST Hospital Encounter Non-[place] [address] Arrived documented as of this encounter Visit Diagnoses Not on filedocumented in this encounter Care Teams Access Consultant Relationship Specialty Start Date End Date Urbano Denis DO [address] [place], [place] [address]Y [facility] [address] [place] [address] PCP - General 09/03/12 03/17/22 Ruchi Valles RN Nurse Clinic Transplant Surgery 07/30/15 documented as of this encounter
--- OUTSIDE RECORDS SUMMARY | 2024-05-16 17:30 | XMS_ITS | Encounter Summary ---
Author Organization [facility] Address [facility] [place] [address] Care Team Providers Care Repair Service Dispatcher Name Role Phone Urbano Denis DO Primary Care Provider [phone] Encounter Details Date Type Department Care Team (Late st Contact Info) Description 06/18/2016 11:30 AM EST Office Visit [place] [address] Que Amaro MD [facility] [place] [address] Kidney replaced by transplant Social History Tobacco [...] transplant procedure. Patient was recently discharged from [facility] s/p UTI, ureteral reimplant for recurring ureteral [...] EXTREMITY performed by Que Amaro MD at [facility] OR ??? Pro transplantation of [...] at [facility] OR ??? Pro reimplant ureter, single ureter Left 05/20/2016 @URETERONEOCYSTOSTOMY ANASTOMOSIS OF SINGLE URETER TO BLADDER performed by Santosh Arredondo MD at [facility] OR ??? Pro reimplant ureter, single ureter N/A 05/20/2016 @URETERONEOCYSTOSTOMY ANASTOMOSIS OF SINGLE URETER TO BLADDER performed by Que Amaro MD at [facility] OR Family History: No family history on [...] EST TH Visit (TeleHealth) Cardiology at [address] [phone] Byron Brown MD [facility] [place] [address] 07/14/2024 10:00 AM EST Hospital Encounter Non-Invasive [place] [phone] Arrived documented as of this encounter Results [...] indicated. Urobilinogen, Urine Dipstick 2.0(A) Normal mg/dL [facility] pH, Urn (dipstick) 6.0 5.0 - 8.0 [facility] Blood, Urine Dipstick Small(A) Negative mg/dL [facility] Ketone, Urine Dipstick Negative Negative mg/dL [facility] Nitrite, Urine Dipstick Negative Negative [facility] Leukocytes, Urine Dipstick Trace(A) Negative [facility] Appearance, Urine Dipstick Clear Clear [facility] Specific [place] Urine Automated 1.025 1.002 - 1.030 [facility] Color, Urine Dipstick Yellow Yellow [facility] RBC, Urine 3 0 - 3 /HPF [facility] WBC, Urine 14(H) 0 - 3 /HPF [facility] Bacteria, Urine Rare(A) None /HPF [facility] Transitional Epithelial Cells, Urine 1 <=1 /HPF [facility] Renal Epithelial Cells, Urine <1(H) <=0 /HPF [facility] Amorphous Crystals, Urine Rare(A) None /HPF [facility] Reflex to Culture Yes [facility] Urine specimen obtained by clean catch procedure (specimen) 06/18/2016 10:57 AM EST 06/18/2016 10:58 AM EST Narrative Resulting Agency Comment Spec In Lab Que Amaro MD URINE ORDERABL ES [facility] [place] [address] * (ABNORMAL) Protein/Creatinine Ratio, urine (06/18/2016 10:57 AM EST) Creatinine, Urine 158 mg/dL [facility] Protein, Urine 24(H) 0 - 12 mg/dL [facility] Protein / Creatinine Ratio, Urine 0.2 ratio [facility] Urine specimen (specimen) 06/18/2016 10:57 AM EST 06/18/2016 11:15 AM EST Narrative Resulting Agency Comment Spec In Lab Que Amaro MD URINE ORDERABL ES Performing Organization Address City/[facility]/ZIP Co de Phone Number [facility] [place] [address] * Uric acid (06/18/2016 10:44 AM EST) Pathologist [facility] Uric Acid 7.9 3.5 - 8.5 mg/dL [facility] Blood specimen (specimen) 06/18/2016 10:44 AM EST 06/18/2016 10:51 AM EST Narrative Resulting Agency Comment Spec In Lab Que Amaro MD CHEMISTRY ORDBhargav JENNINGS Performing Organization Address [facility] Co de Phone Number [facility] [place] [address] * Tacrolimus level (06/18/2016 10:44 AM EST) Pathologist [facility] Tacrolimus 4.0 ng/mL [facility] Comment: Trough therapeutic: ??5-15 ng/mL Performed by ultra-performance liquid chromatography tandem mass spectrometry (UPLCMS/MS). Blood specimen (specimen) 06/18/2016 10:44 AM EST 06/18/2016 1:23 PM EST Narrative Resulting Agency Comment Spec In Lab Que Amaro MD CHEMISTRY ORDBhargav JENNINGS Performing Organization Address [facility] Co de Phone Number [facility] [place] [address] * (ABNORMAL) Reticulocyte Count (06/18/2016 10:44 AM EST) Reticulocyte % 2.7(H) 0.7 - 2.6 % [facility] Retic Abs # 0.120 0.030 - 0.120 x10(6)/mcL [facility] Immature Retic% 9.5 0.0 - 15.6 % [facility] Reticulated Hgb 37.8 31.3 - 40.2 pg [facility] Blood specimen (specimen) 06/18/2016 10:44 AM EST 06/18/2016 10:51 AM EST Narrative Resulting Agency Comment Spec In Lab Que Amaro MD HEMATOLOGY ORD ERABLES Performing Organization Address City/[facility]/ZIP Co de Phone Number [facility] [place] [address] * Phosphorus (06/18/2016 10:44 AM EST) Phosphorus 2.7 2.5 - 4.5 mg/dL [facility] Blood specimen (specimen) 06/18/2016 10:44 AM EST 06/18/2016 10:51 AM EST Narrative Resulting Agency Comment Spec In Lab Que Amaro MD CHEMISTRY ORDBhargav JENNINGS Performing Organization Address [facility]/ZIP Co de Phone Number [facility] [place] [address] * (ABNORMAL) Magnesium (06/18/2016 10:44 AM EST) Magnesium 0.66(L) 0.69 - 1.07 mmol/L [facility] Blood specimen (specimen) 06/18/2016 10:44 AM EST 06/18/2016 10:51 AM EST Narrative Resulting Agency Comment Spec In Lab Que Amaro MD CHEMISTRY ORDBhargav JENNINGS Performing Organization Address City/[facility]/ZIP Co de Phone Number [facility] [place] [address] * Cyclosporine level (06/18/2016 10:44 AM EST) Pathologist [facility] Cyclosporine A Level <30 ng/mL [facility] Comment: Trough therapeutic: ??100-300 ng/mL [...] Amaro MD LAB SEND OUT O RDERABLES [facility] [place] [address] * (ABNORMAL) Comprehensive metabolic panel (non-fasting) (06/18/2016 10:44 AM EST) Pathologist [facility] Glucose 153 65 - 199 mg/dL [facility] Comment:Diabetes: >=200 mg/d L plus symptoms Blood Urea Nitrogen 16 10 - 20 mg/dL [facility] Creatinine 1.34 0.80 - 1.50 mg/dL [facility] [...] gm/dL [facility] Aspartate Aminotransferase 32 0 - 39 unit/L [facility] Alanine Aminotransferase 26 0 - 55 unit/L [facility] Alkaline Phosphatase 80 40 - 120 unit/L [facility] Bilirubin, Total 1.1 0.2 - 1.3 mg/dL [facility] Bilirubin, Direct 0.3 0.0 - 0.3 mg/dL [facility] Est Glomerular Filtration Rate 53(L) >=60 [facility] Comment: This [...] the following links into your internet browser. [email or web address] [email or web address] [email or web address] [email or web address] Blood specimen (specimen) 06/18/2016 10:44 AM EST 06/18/2016 10:51 AM EST Narrative Resulting Agency Comment Spec In Lab Que Amaro MD CHEMISTRY ROCHELLE JENNINGS [facility] [place] [address] * Cholesterol, total (06/18/2016 10:44 AM EST) Cholesterol, Total 160 <=239 mg/dL [facility] Lipid Interpretation See Note [facility] Comment: Lipid management should be guided by a patient? s ASCVD risk, goals and preferences. ACC/AHA Guidelines recommend high intensity statin if clinical ASCVD or LDL greater than or equal to 190 mg/dL. http://circ.ahajournals.org/content/early/.cir.6864832814.02402.7a Adults aged 40-75 with LDL 70-189 mg/dL should have their 10 year ASCVD risk estimated with the ACC/AHA ASCVD risk economics lecturer http://tools.acc.org/ZNWHI-Qrrz-Nicygwbgf/ Statin should be discussed if risk greater [...] CHEMISTRY ROCHELLE JENNINGS [facility] [place] [address] documented in this encounter Visit Diagnoses Diagnosis Kidney replaced by transplant documented in this encounter Care Teams Repair Service Dispatcher Relationship Specialty Start Date End Date Urbano Denis DO [address] [place] [address] PCP - General 09/03/12 03/17/22 Ruchi Valles RN Nurse Clinic Transplant Surgery 07/30/15 documented as of this encounter
--- OUTSIDE RECORDS SUMMARY | 2024-05-16 17:30 | XMS_ITS | Encounter Summary ---
[place] [address] Care Team Providers Care Renal Medicine Physician Name Role Phone Urbano Denis DO Primary Care Provider [phone] Reason for Referral * Diagnostic Test (Routine) - Closed Specialty Diagnoses / Procedures Referred By Humberto flor Referred To Contact Radiology Diagnoses Ureteral stricture Procedures IR all procedures Santosh Arredondo MD [facility] [address] [place] [address] Referral ID Status Reason Start Date Expiration Date V isits Requested Visits Authorized [id number] Closed Specialty Service Requested 06/03/2016 06/03/2017 1 1 Encounter Details Date Type Department Care Team (Latest Contact Info) Description 06/03/2016 10:00 AM EST Clinical [place] [address] Ureteral stricture Social History Tobacco [...] EST TH Visit (TeleHealth) Cardiology at [address] [phone] Byron Brown MD [facility] [place] [address] 07/14/2024 10:00 AM EST Hospital Encounter Non-[place] [phone] Arrived documented as of this encounter Results [...] the renal pelvis with ligation of the the [place] ureter on 05/20/2016. Nephrostomy tube was capped [...] Lange performed this procedure. Santosh Arredondo MD [facility] IR ORDERABLES documented in this encounter Visit Diagnoses Diagnosis Ureteral stricture Stricture or kinking of ureter Ureteral stricture Stricture or kinking of ureter documented in this encounter Care Teams Renal Medicine Physician Relationship Specialty Start Date End Date Ubrano Denis DO [address] [place] [address] PCP - General 09/03/12 03/17/22 Ruchi Valles RN Nurse Clinic Transplant Surgery 07/30/15 documented as of this encounter
--- OUTSIDE RECORDS SUMMARY | 2024-05-16 17:30 | XMS_ITS | Encounter Summary ---
Author Organization [facility] [place] [address] Care Team Providers Care Furnace Mechanic Name Role Phone Urbano Denis DO Primary Care Provider [phone] Encounter Details Date Type Department Care Team (Latest Contact Info) Description 06/03/2016 10:00 AM EST Procedure visit Urology at [facility] [place] [address] Other symptoms and signs involving the genitourinary [...] EST TH Visit (TeleHealth) Cardiology at [address] [phone] Byron Brown MD [facility] [place] [address] 07/14/2024 10:00 AM EST Hospital Encounter Non-[place] [phone] Arrived documented as of this encounter Procedures Procedure Name Priority Date/Time Associated Diagnosis Comments URINE CULTURE Routine 06/03/2016 10:44 AM EST Other symptoms and signs involving the genitourinary system documented in this encounter Results * Urine culture Clean Catch Urine (06/03/2016 10:44 AM EST) Urine Culture No growth (Less than 1,000 cfu/ml). [facility] Urine specimen obtained via indwelling urinary catheter (specimen) 06/03/2016 10:44 AM EST 06/03/2016 1:17 PM EST Narrative Resulting Agency Comment Spec In Lab Santosh Arredondo MD MICROBIOLOGY - [place] [address] documented in this encounter Visit Diagnoses Diagnosis Other symptoms and signs involving the genitourinary system documented in this encounter Care Teams Furnace Mechanic Relationship Specialty Start Date End Date Urbano Denis DO [address] [place] [address] PCP - General 09/03/12 03/17/22 Ruchi Valles RN Nurse Clinic Transplant Surgery 07/30/15 documented as of this encounter
--- OUTSIDE RECORDS SUMMARY | 2024-05-16 17:30 | XMS_ITS | Encounter Summary ---
Author Organization [facility] [place] [address] Care Team Providers Care Show Design Supervisor Name Role Phone Urbano Denis DO Primary Care Provider + [phone] Reason for Visit * Reason Comments Follow-up Encounter Details Date Type Department Care Team (Late st Contact Info) Description 06/03/2016 10:40 AM EST [place] [address] Santosh Arredondo MD [facility] [place] [address] Ureteral stricture of left kidney transplant Social [...] flap. He also underwent ligatio of the [place] LEFT ureter 09/17/2015 Donor renal transplant for [...] the renal pelvis with ligation of the [place] ureter. 05/28/2016 Discharged after post op course [...] ??? Hematuria PSHx Bilateral inguinal hernias with [id number] Shoulder surgery Knee arthroscopy Vasectomy Medications: Reviewed [...] sp donor transplantation.sp Boari flap. Ligation of [place] left ureter #2: Hx of staph and [...] EST TH Visit (TeleHealth) Cardiology at [address] [phone] Byron Brown MD [facility] [address] 07/14/2024 10:00 AM EST Hospital Encounter Non-[place]vasive [place] [phone] Arrived documented as of this encounter Visit Diagnoses Diagnosis Ureteral stricture of left kidney transplant Complications of transplanted kidney documented in this encounter Care Teams Show Design Supervisor Relationship Specialty Start Date End Date Urbano Denis DO [address] [place] [address] PCP - General 09/03/12 03/17/22 Ruchi Valles RN Nurse Clinic Transplant Surgery 07/30/15 documented as of this encounter
--- OUTSIDE RECORDS SUMMARY | 2024-05-16 17:31 | XMS_ITS | Encounter Summary ---
Author Organization [facility] [place] [address] Care Team Providers Care Oncology Transplant Network Manager Name Role Phone Urbano Denis DO Primary Care Provider Reason for Visit * Auth/Cert Specialty Diagnoses / Procedures Referred By Humberto t Referred To Contact Diagnoses Dehydration Referral ID Status Reason Start Date Expiration Date Visits Re quested Visits Authorized [id number] 1 1 Encounter Details Date Type Department Care Team (Late st Contact Info) Description 05/13/2016 4:29 PM EST - 05/28/2016 2:34 PM [facility] Hospital Encounter [address] [place] [address] Que Amaro MD [facility] [place] [address] Kitty Marie MD [facility] [address] [place] [address] Dehydration Discharge Disposition: Home Social History Tobacco [...] - Primary * Pako Booth MD - Resident-Oil Dispenser Panel 2: * Que Amaro MD - [...] No evidence of viral inclusions. B - [place] left ureter: ? 1. Benign ureter. ? [...] central cross- sections. ??(R2) B - ??Labeled/Fixative: [place] left ureter, fresh. Quantity/Size: Single, 8.2 x [...] 8:00 AM LAB, THREE L Lab 3L [facility] 06/03/2016 9:00 AM Que Amaro MD Le[facility] Trans 2M [facility] 06/03/2016 10:00 AM URODYNAMIC LAB [facility] 06/03/2016 10:00 AM UROLOGY, NURSE [facility] 06/03/2016 10:40 AM Moy Arredondo MD [facility] 06/25/2016 10:00 AM Franko Kim MD Leb Infec 5C [facility] 09/15/2016 9:00 AM LAB, THREE L Lab 3L [facility] 09/15/2016 10:00 AM Tal Eagle MD Leb Trans [address] [place] [address] Outpatient Services/Studies: XR Fluoro Cystogram Standing Status: [...] date and time of your appointment.Phone number: [phone] Future Appointments Date Time Provider Department Center 06/03/2016 8:00 AM LAB, THREE L Lab 3L [facility] 06/03/2016 9:00 AM Que Amaro MD Leb Trans 2M [facility] 06/03/2016 10:00 AM URODYNAMIC LAB Heri Uro [facility] 06/03/2016 10:00 AM UROLOGY, NURSE Leb [...] the message. You can also reach the membership coordinator after hours by calling (ask for the membership coordinator on-call). General Instructions None Provider Contact Information: If you have any questions or concerns during daytime hours, please call the Transplant clinic at [phone]. If you have questions or concerns during the night or weekends, please call [phone] ask to be transferred to the procurement cost coordinator media reconciliation specialist. Signed: EPIFANIO TORRE MD 05/28/2016 documented in [...] date and time of your appointment.Phone number: [phone] Future Appointments Date Time Provider Department Center 06/03/2016 8:00 AM LAB, THREE L Lab 3L [facility] 06/03/2016 9:00 AM Que Amaro MD Leb Trans [facility] 06/03/2016 10:00 AM URODYNAMIC LAB [facility] 06/03/2016 10:00 AM UROLOGY, NURSE [facility] 06/03/2016 10:40 AM Moy Arredondo MD [facility] 06/25/2016 10:00 AM Franko Kim MD Leb Infec 5C [facility] 09/15/2016 9:00 AM LAB, THREE L Lab 3L [facility] 09/15/2016 10:00 AM Tal Eagle [...] Department anytime (day, night, weekend, holiday) at [phone] . After hours, please follow the instructions on the message. You can also reach the membership coordinator after hours by calling (ask for the membership coordinator on-call). documented in this encounter Medications [...] from bladder to proximal transplant ureter on usp antibiotics for coag negative staph bacteremia. Keep [...] performed and anastomosed to proximal graft ureter 2-[place] left ureter divided and dissected then ligated [...] Bolden is a 65 y.o. male on oil heaterman IV abx for coag neg staph bacteremia [...] from bladder to proximal transplant ureter on usp antibiotics for coag negative staph bacteremia. Keep [...] performed and anastomosed to proximal graft ureter 2-[place] left ureter divided and dissected then ligated [...] Bolden is a 65 y.o. male on oil heaterman IV abx for coag neg staph bacteremia [...] from bladder to proximal transplant ureter on usp antibiotics for coag negative staph bacteremia. Keep [...] performed and anastomosed to proximal graft ureter 2-[place] left ureter divided and dissected then ligated [...] treatment of chronic HCV ?? --- ASSESSMENT: Coyd Bolden is a 65 y.o. male on oil heaterman IV abx for coag neg staph bacteremia [...] from bladder to proximal transplant ureter on oil heaterman antibiotics for coag negative staph bacteremia. PLAN: [...] performed and anastomosed to proximal graft ureter 2-[place] left ureter divided and dissected then ligated [...] Bolden is a 65 y.o. male on oil heaterman IV abx for coag neg staph bacteremia [...] from bladder to proximal transplant ureter on oil heaterman antibiotics for coag negative staph bacteremia. PLAN: [...] ureter. Tension free. Short JJ stent placed [place] left ureter divided and dissected then ligated [...] Franko Kim MD Infectious Disease Fellow Pager [phone] Attending Addendum: I have seen and examined the patient, reviewed the data and agree with the note by Dr. Tipton. * Cody Orr - 05/23/2016 2:32 PM EST Khloe Encounter Note Patient Name: Cody Bolden : [id number] MR#: [id number] Admit Date: 05/13/2016 4:29 PM Hospital Day [...] notes. MARS SCHREIBER RN 05/23/2016 Pager # [phone] I performed the above scribed service and agree with the accuracy of the note. Memo Alva MD * Herlinda Bell RD - 05/23/2016 1:24 PM EST This policy writer has noted that patient has been [...] of bowel function yet 3 Days Post-Op [facility] 10 05/20 - Intraop findings: 1-Graft ureter completely stuck in pelvis, dissected up until the renal pelvis. Boari flap performed and anastomosed to proximal graft ureter 2-[place] left ureter divided and dissected then ligated [...] Bolden is a 65 y.o. male on oil heaterman IV abx for coag neg staph bacteremia [...] from bladder to proximal transplant ureter on usp antibiotics for coag negative staph bacteremia. PLAN: [...] notes. MARS SCHREIBER RN 05/22/2016 Pager # [phone] Ria Schreiber RN, has performed the documentation [...] performed and anastomosed to proximal graft ureter 2-[place] left ureter divided and dissected then ligated [...] Bolden is a 65 y.o. male on oil heaterman IV abx for coag neg staph bacteremia [...] from bladder to proximal transplant ureter on usp antibiotics for coag negative staph bacteremia. PLAN: [...] notes. KITTY STEELE RN 05/21/2016 Pager # [phone] Socorro Steele RN, has performed the documentation [...] performed and anastomosed to proximal graft ureter 2-[place] left ureter divided and dissected then ligated [...] Bolden is a 65 y.o. male on usp IV abx for coag neg staph bacteremia [...] DISPO: Stable on floor. Code status: FULL aJy Vargas MD * Que Hayes MD - 05/21/2016 1:23 AM EST Post-Operative Progress Note Patient: Cody Bolden s/p Surgery: 05/20/2016 [id number] Procedure(s) (LRB): @URETERONEOCYSTOSTOMY ANASTOMOSIS OF SINGLE URETER TO BLADDER (Left) @URETERONEOCYSTOSTOMY ANASTOMOSIS OF SINGLE URETER TO BLADDER (N/A) Surgeon(s) and Role: Panel 1: * Moy Arredondo MD - Primary * Pako Booth MD - Resident-Oil Dispenser Panel 2: * Que Amaro MD - [...] Bolden is a 65 y.o. male on usp IV abx for coag neg staph bacteremia [...] of the kidney. Will send ureter for [id number] to determine whether there is evidence of [...] Bolden is a 65 y.o. male on usp IV abx for coag neg staph bacteremia [...] Bolden is a 65 y.o. male on oil heaterman IV abx for coag neg staph bacteremia [...] Bolden is a 65 y.o. male on usp IV abx for coag neg staph bacteremia [...] Patient is on a regular diet. This policy writer spoke with patient and his . [...] Franko Kim MD Infectious Disease Fellow Pager [phone] Attending Addendum: I have seen and examined [...] Bolden is a 65 y.o. male on oil heaterman IV abx for coag neg staph bacteremia [...] Bolden is a 65 y.o. male on oil heaterman IV abx for coag neg staph bacteremia [...] Bell RD - 05/14/2016 1:44 PM EST [facility] Post Transplant Nutrition Follow Up Date: 05/14/2016 Patient: Cody Bolden Transplant Date: 09/16/15 [place] organ UNOS diagnosis: Transplant: Mr. Cody Bolden [...] Value Date CHLPL 134 05/13/2016 Assessment: This policy writer saw patient in clinic yesterday. He [...] inpatient; hydration status more appropriate. Plan: This policy writer provided patient with a booklet Tips for Better Food Intake to offer tips for loss ofappetite and help to lessen diarrhea, as well as ideas for healthy snacks. This policy writer will follow patient's labs and weight [...] Bolden is a 65 y.o. male on usp IV abx for coag neg staph bacteremia [...] tube Discussed Boari flap, graft ureter to pamunkey ureter anastomosis, ileal ureter with him and [...] a 65 y.o. male who presents to [facility] with fever. History of Present Illness / [...] further clinical details. Kitty Marie MD 05/13/16 4990 * Paul Bain RN - 05/13/2016 5:33 PM EST Pt's leg bag switched to gravity bag for Pt's comfort. Per his request * Paul Bain RN - 05/13/2016 4:[address] Mix at the bed side * Martina Mix MD - 05/13/2016 4:34 PM EST Emergency Department Cody Bolden is a 65 y.o. male who presents to [facility] with from Transplant Surgery Clinic with an [...] Personalized Care? -- You can call me [facility] -- 05/24/16 1542 05/25/16 1449 Individualization Patient [...] nursing;patient Problem: Health Knowledge, Opportunity to Enhance (Adult,NICU,[place],Obstetrics,Pediatric) Intervention: Enhance Health Knowledge 05/27/16 2146 Coping Strategies Supportive Measures active listening utilized Family/Support System Care involvement promoted Goal: Knowledgeable about Health Subject/Topic Patient will demonstrate the desired outcomes by discharge/transition of care. Outcome: Ongoing (Interventions Implemented as Appropriate) 05/27/16 1542 Health Knowledge, Opportunity to Enhance (Adult,NICU,[place],Obstetrics,Pediatric) Knowledgeable about Health Subject/Topic making progress toward [...] Purposeful hourly rounding; room near unit station; [facility] Patient-specific fall prevention interventions for sensory [...] Personalized Care? -- You can call me [facility] -- 05/24/16 1542 05/25/16 1449 Individualization Patient [...] 05/27/16 1542 Health Knowledge, Opportunity to Enhance (Adult,NICU,[place],Obstetrics,Pediatric) Knowledgeable about Health Subject/Topic making progress toward [...] nursing;patient Problem: Health Knowledge, Opportunity to Enhance (Adult,NICU,[place],Obstetrics,Pediatric) Intervention: Enhance Health Knowledge 05/26/16 204 Coping Strategies Supportive Measures active listening utilized Family/Support System Care involvement promoted Goal: Knowledgeable about Health Subject/Topic Patient will demonstrate the desired outcomes by discharge/transition of care. Outcome: Ongoing (Interventions Implemented as Appropriate) 05/26/16 0128 Health Knowledge, Opportunity to Enhance (Adult,NICU,[place],Obstetrics,Pediatric) Knowledgeable about Health Subject/Topic making progress toward [...] OT needs. Precautions: immunosuppression, IV, whaley Pager: [phone] TAMELA MAK OT 05/25/2016 Occupational Therapy Rehabilitation [...] ambulate. Will continue to monitor. @0551: paged media reconciliation specialist MD Bonner for pt's elevated BP ( 184/83 @0424/ 180/81@6113). Pt c/o heartburnbut no chest pain. @0618: [...] Appropriate) 05/25/1643 Health Knowledge, Opportunity to Enhance (Adult,NICU,[place],Obstetrics,Pediatric) Knowledgeable about Health Subject/Topic making progress toward [...] -- Problem: Health Knowledge, Opportunity to Enhance (Adult,NICU,[place],Obstetrics,Pediatric) Goal: Identify Related Risk Factors and Signs [...] use of PCEA. Did not give Metop [id number], due to HR <55. Still unable to [...] for further information as needed. Melissa Stone, [facility] P.[phone] Goal: Discharge Needs Assessment Outcome: Ongoing (Interventions [...] to Achieve 1 day Gait Training Goal, Bucks Level independent Gait Training Goal, Distance to Achieve >150' Gait Training Goal, Outcome goal met Goal: Physical Therapy Goal Stand Alone Therapy Goal Outcome: Outcome (s) achieved Date Met: 05/22/16 05/22/16 0953 Physical Therapy Goal PT Goal, Time to Achieve 1 day PT Goal, Bucks Level independent PT Goal, Additional Goal Pt [...] PM EST Patient Name: Cody Bolden : [id number] MR#: [id number] ?? Case Date: 05/20/2016 ?? Surgeon: Surgeon(s) and Role: Panel 1: * Moy Arredondo MD - Primary * Pako Booth MD - Resident-Oil Dispenser ?? Panel 2: * Que Amaro MD - Primary ?? Preoperative diagnosis: Transplanted ureter stricture ?? Postoperative diagnosis: Same ?? Procedure(s): Boari flap from bladder to proximal transplant ureter ? Anesthesia: Epidural, General ?? Findings: ?? 1-Graft ureter completely stuck in pelvis, dissected up until the renal pelvis. Boari flap performed and anastomosed to proximal graft ureter 2-[place] left ureter divided and dissected then ligated [...] anastomosis between the graft ureter and the pamunkey ureter. The patient was then brought into [...] the bladder until we got to the pamunkey ureter, which was divided as it was [...] note, prior to closing the anastomosis, a 6-Icelandic double-J stent with 12 cm of length [...] ureter. Tension free. Short JJ stent placed [place] left ureter divided and dissected then ligated after observing it throughout the procedure without urine production MOY ARREDONDO MD 05/22/2016 * Brief Op Note - Pako Booth - 05/20/2016 9:09 PM EST Brief Operative Note Patient Name: Cody Bolden : [id number] MR#: [id number] Case Date: 05/20/2016 Surgeon: Surgeon(s) and Role: Panel 1: * Moy Arredondo MD - Primary * Pako Booth MD - Resident-Oil Dispenser Panel 2: * Que Amaro MD - Primary Preoperative diagnosis: Transplanted ureter stricture Postoperative diagnosis: Same Procedure(s): Boari flap from bladder to proximal transplant ureter Anesthesia: Epidural, General Findings: 1-Graft ureter completely stuck in pelvis, dissected up until the renal pelvis. Boari flap performed and anastomosed to proximal graft ureter 2-[place] left ureter divided and dissected then ligated [...] nursing;patient;physician * Consult Note - Eleanor Bird [facility] - 05/17/2016 1:19 PM EST Clinical Pharmacist Note-Vancomycin Cdoy Gomez Yuan [phone] Cody Pendletonneri is a 65 y.o. [...] have. Alternately, during off-hours you may call [phone] to contact a pharmacist. ELEANOR BIRD [facility] Ext [phone] * Consult Note - Guy Almanza RN [...] of infiltration/extravasation Name of MD contacted Paged [phone] pager at 0910 05/17 Name of RN contacted Katharine STANLEY 05/17 at 0900 Name of Pharmacist if consulted N/A Name of Plastics MD ( if consulted) NA (Mandatory photo for infiltrations/ extravasations scoring a stage 2 or greater, but recommended for stage 1)( include measuring tape and identifier in the photo) PROFESSOR OF MUSICOLOGY CARING FOR THIS PATIENT WILL CONTINUE TO [...] is fair OUTCOME EVALUATION NOTE: OUTCOME SUMMARY: aYsh has rested well tonight. He had an [...] EST Problem: Health Knowledge, Opportunity to Enhance (Adult,NICU,[place],Obstetrics,Pediatric) Goal: Knowledgeable about Health Subject/Topic Patient will [...] performed by Que Amaro MD at [facility] OR ??? Pro transplantation of kidney N/A 09/16/2015 @KIDNEY TRANSPLANT, WITHOUT RECIPIENT NEPHRECTOMY performed by Franko Larkin MD at [facility] OR ??? Pro transplant, prep cadaver renal graft N/A 09/16/2015 @PREPARATION CADAVERIC RENAL ALLOGRAFT performed by Franko Larkin MD at [facility] OR ??? N/A 09/16/2015 ORGAN ACQUISITION RENAL, CADAVERIC performed by Franko Larkin MD at [facility] SOCIAL HISTORY Social History [...] CREATININE 1.23 1.22 1.39 CULTURES: Urine culture [[id number]] (Abnormal) Collected: 05/13/16 1300 ? Lab Status: [...] Sensitive ? Trimethoprim/Sulfa Sensitive ? Blood culture [[id number]] Collected: 05/13/16 1232 ? Lab Status: Preliminary result Specimen: Blood from Peripheral Updated: 05/15/16 1501 ? Blood Culture No growth at 2 days. ? Blood culture [[id number]] Collected: 05/13/16 1219 ? Lab Status: Preliminary result Specimen: Blood from PICC Line Updated: 05/15/16 1501 ? Blood Culture No growth at 2 days. ? Urine culture Nephrostomy Urine [[id number]] Collected: 04/28/16 1344 ? Lab Status: Final [...] CADAVERIC performed by Franko Larkin MD at [facility] OR Prior To Admission Medications: Prescriptions [...] Do not hesitate to page us at [phone] with any further questions or concerns. Franko Kim MD Infectious Disease Fellow Pager [phone] Attending Addendum: I have seen and examined [...] Lives in a home with his in [facility] Social & Family Supports/Community Resources: , family and friends Behavioral Health History: None on file Substance Use/Abuse: None on file Other Pertinent/Service Specific Information: None Health/Prescription Coverage: Primary Insurance: Medicare Part A & B Secondary Insurance: BC/BS Prescription Coverage: Yes [facility] Other: None Primary Care Provider: Urbano Denis MD [phone] Patient/Caregiver Goals of Treatment: Patient states I [...] of care planning. Malina Phelan RN Pager: [phone] * Plan of Care - Keyana Moy [...] EST TH Visit (TeleHealth) Cardiology at [address] [phone] Byron Brown MD [facility] [place] [address] 07/14/2024 10:00 AM EST Hospital Encounter [place] [address] Arrived Scheduled Orders Name Type Priority Associated Diagnoses Orde r Schedule XR Fluoro No Rad <1Hr Imaging Routine Onc e PRN (for Radiant use) for 1 Occurrences starting 05/20/2016 until 05/20/2016 documented as of this encounter Procedures Procedure Name Priority Date/Time Associated Diagnosis Comments GEOLOGICAL MANAGER SCAN 05/29/2016 12:00 AM EST HEMOGRAM STAT [...] in this encounter Results * SCAN DOC: GEOLOGICAL MANAGER (05/29/2016 12:00 AM EST) Anatomical Region Laterality Modality Other Scanning Provider MEDIA MGR SCAN EXT O RDR/RSLT * Tacrolimus level (05/28/2016 8:01 AM EST) Tacrolimus 4.7 ng/mL [facility] Comment: Trough therapeutic: ??5-15 ng/mL Performed by ultra-performance liquid chromatography tandem mass spectrometry (UPLCMS/MS). Blood specimen (specimen) 05/28/2016 8:01 AM EST 05/28/2016 11:10 AM EST Narrative Resulting Agency Comment Spec In Lab Que Amaro MD CHEMISTRY ORDBhargav JENNINGS Performing Organization Address [facility]/ZIP Co de Phone Number [facility] [place] [address] * (ABNORMAL) Differential, Automated (05/28/2016 8:01 AM EST) Neutrophil % 82.6 % [facility] Neutrophil Absolute 10.51(H) 1.70 - 6.10 x10(3)/mc L [facility] Lymph % 9.7 % [facility] Lymphocytes Abs 1.2 0.9 - 3.2 x10(3)/mc L [facility] Monocyte % 5.3 % [facility] Monocyte Abs 0.7 0.3 - 0.9 x10(3)/mc L [facility] Eos % 1.5 % [facility] Eosinophils Abs 0.2 0.0 - 0.4 x10(3)/mc L [facility] Basophil % 0.4 % [facility] Baso Absolute 0.0 0.0 - 0.1 x10(3)/mc L [facility] Immature Gran % 0.50 % [facility] Comment: Immature granulocytes(IG's)percentage and absolute count will include metamyelocytes, myelocytes, and promyelocytes. Blood smears from CBCs yielding IG's will be scanned manually for concordance. If this scan disagrees with the automated IG or if promyelocytes are noted, a manual differential will be performed. Immature Gran Absolute 0.07(H) 0.00 - 0.04 x10(3)/mc L [facility] Blood specimen (specimen) 05/28/2016 8:01 AM EST 05/28/2016 8:07 AM EST Narrative Resulting Agency Comment Spec In Lab Que Amaro MD HEMATOLOGY ORD MILAGROS Performing Organization Address City/[facility]/ZIP Co de Phone Number [facility] [place] [address] * (ABNORMAL) Hemogram (05/28/2016 8:01 AM EST) White Blood Cell 12.7(H) 4.0 - 9.5 x10(3)/[facility] Red Blood Cell 4.20(L) 4.58 - 5.54 x10(6)/mc L [facility] Hemoglobin 13.8 13.7 - 16.5 gm/dL [facility] Hematocrit 39.6(L) 40.5 - 48.5 % [facility] Mean Cell Volume 94.3(H) 82.9 - 93.1 fL [facility] Mean Cell Hemoglobin 32.9(H) 27.5 - 32.1 pg [facility] Mean Cell Hemoglobin Concentration 34.8 32.0 - 35.7 gm/dL [facility] Platelet 276 145 - 357 x10(3)/[facility]ORATORY RDW Standard Deviation 45.1(H) 36.0 - 45.0 [facility] RDW coefficient of variation 13.2 11.4 - 13.8 % [facility] Mean Platelet Volume 8.5 7.6 - 12.9 [facility] NRBC% auto 0.0 % [facility] NRBC Absolute 0.000 0.000 - 0.000 x10(3)/[facility] Blood specimen (specimen) 05/28/2016 8:01 AM EST 05/28/2016 8:07 AM EST Narrative Resulting Agency Comment Spec In Lab Que Amaro MD HEMATOLOGY ORD ERABLES [facility] [place] [address] * (ABNORMAL) Magnesium (05/28/2016 8:01 AM EST) Magnesium 0.68(L) 0.69 - 1.07 mmol/L [facility] Blood specimen (specimen) 05/28/2016 8:01 AM EST 05/28/2016 8:07 AM EST Narrative Resulting Agency Comment Spec In Lab Que Amaro MD CHEMISTRY ROCHELLE JENNINGS Performing Organization Address City/[facility] Co de Phone Number [facility] [place] [address] * Phosphorus (05/28/2016 8:01 AM EST) Phosphorus 2.7 2.5 - 4.5 mg/dL [facility] Blood specimen (specimen) 05/28/2016 8:01 AM EST 05/28/2016 8:07 AM EST Narrative Resulting Agency Comment Spec In Lab Que Amaro MD CHEMISTRY ROCHELLE JENNINGS Performing Organization Address [facility] de Phone Number [facility] [address] * Basic Metabolic Panel (non-fasting) (05/28/2016 8:01 AM EST) Glucose 181 65 - 199 mg/dL [facility] Comment:Diabetes: >=200 mg/d L plus symptoms Blood Urea Nitrogen 19 10 - 20 mg/dL [facility] Creatinine 1.16 0.80 - 1.50 mg/dL [facility] Comment: Please note that the pediatric reference intervals supplied above were not validated at [facility]. Results from pediatric [...] 15 mmol/L [facility] Calcium 9.4 8.5 - 10.5 mg/dL [facility] [...] the following links into your internet browser. [email or web address] Blood specimen (specimen) 05/28/2016 8:01 AM EST 05/28/2016 8:07 AM EST Narrative Resulting Agency Comment Spec In Lab Que Amaro MD CHEMISTRY ROCHELLE JENNINGS [facility] [place] [id number] * (ABNORMAL) Differential, Automated (05/27/2016 5:43 AM EST) Neutrophil % 87.9 % [facility] Neutrophil Absolute 11.88(H) 1.70 - 6.10 x10(3)/mc L [facility] Lymph % 5.0 % [facility] Lymphocytes Abs 0.7(L) 0.9 - 3.2 x10(3)/mc L [facility] Monocyte % 5.5 % [facility] Monocyte Abs 0.8 0.3 - 0.9 x10(3)/mc L [facility] Eos % 0.9 % [facility] Eosinophils Abs 0.1 0.0 - 0.4 x10(3)/mc L [facility] Basophil % 0.3 % [facility] Baso [...] Absolute 0.06(H) 0.00 - 0.04 x10(3)/ L [facility] Blood specimen (specimen) 05/27/2016 5:43 AM EST 05/27/2016 6:09 AM EST Narrative Resulting Agency Comment Spec In Lab Que Amaro MD HEMATOLOGY ORD ERABLES [facility] [place] [address] * (ABNORMAL) Hemogram (05/27/2016 5:43 AM EST) White Blood Cell 13.5(H) 4.0 - 9.5 x10(3)/ L [facility] Red Blood Cell 4.10(L) 4.58 - 5.54 x10(6)/mc L [facility] Hemoglobin 13.1(L) 13.7 - 16.5 gm/dL [facility] Hematocrit 38.5(L) 40.5 - 48.5 % [facility] Mean Cell Volume 93.9(H) 82.9 - 93.1 fL [facility] Mean Cell Hemoglobin 32.0 27.5 - 32.1 pg [facility] Mean Cell Hemoglobin Concentration 34.0 32.0 - 35.7 gm/dL [facility] Platelet 246 145 - 357 x10(3)/ L [facility] RDW Standard Deviation 44.5 36.0 - 45.0 [facility] RDW coefficient of variation 13.1 11.4 - 13.8 % [facility] Mean Platelet Volume 8.8 7.6 - 12.9 fL [facility] NRBC% auto 0.0 % [facility] NRBC Absolute 0.000 0.000 - 0.000 x10(3)/mc L [facility] Blood specimen (specimen) 05/27/2016 5:43 AM EST 05/27/2016 6:09 AM EST Narrative Resulting Agency Comment Spec In Lab Que Amaro MD HEMATOLOGY ORD ERABLES Performing Organization Address City/[facility]/ZIP Co de Phone Number [facility] [place] [address] * Magnesium (05/27/2016 5:43 AM EST) Magnesium 0.73 0.69 - 1.07 mmol/L [facility] Blood specimen (specimen) 05/27/2016 5:43 AM EST 05/27/2016 6:09 AM EST Narrative Resulting Agency Comment Spec In Lab Que Amaro MD CHEMISTRY ORDBhargav JENNINGS Performing Organization Address City/[facility]/ZIP Co de Phone Number [facility] [place] [address] * Phosphorus (05/27/2016 5:43 AM EST) Phosphorus 3.2 2.5 - 4.5 mg/dL [facility] Blood specimen (specimen) 05/27/2016 5:43 AM EST 05/27/2016 6:09 AM EST Narrative Resulting Agency Comment Spec In Lab Que Amaro MD CHEMISTRY ORDBhargav JENNINGS Performing Organization Address City/[facility]/ZIP Co de Phone Number [facility] [place] [address] * Basic Metabolic Panel (non-fasting) (05/27/2016 5:43 AM EST) Glucose 148 65 - 199 mg/dL [facility] Comment:Diabetes: >=200 mg/d L plus symptoms Blood Urea Nitrogen 17 10 - 20 mg/dL [facility] Creatinine 1.04 0.80 - 1.50 mg/dL [facility] Comment: Please note that the pediatric reference intervals supplied above were not validated at [facility]. Results from pediatric [...] questions. Chloride 102 98 - 107 mmol/L [facility] Carbon Dioxide 24 22 - 31 mmol/L [facility] Anion Gap 15 5 - 15 mmol/L [facility] Calcium 9.0 8.5 - 10.5 mg/dL [facility] [...] the following links into your internet browser. [email or web address] Blood specimen (specimen) 05/27/2016 5:43 AM EST 05/27/2016 6:09 AM EST Narrative Resulting Agency Comment Spec In Lab Que Amaro MD CHEMISTRY ROCHELLE JENNINGS [facility] Organization Address City/State/ZIP Co de Phone Number [facility] [place] [address] * Potassium (05/26/2016 4:57 PM EST) Potassium 4.5 3.5 - 5.0 mmol/L [facility] [...] Que Amaro MD CHEMISTRY ROCHELLE JENNINGS [facility] [place] [address] * XR Chest PA & Lateral (Generic) [...] Blood Culture No growth at 5 days. [facility] Blood specimen (specimen) 05/26/2016 10:09 AM EST 05/26/2016 10:35 AM EST Comment:R AC Narrative Resulting Agency Comment Spec In Lab Que Amaro MD MICROBIOLOGY - BLOOD ORDERABLES Performing Organization Address [facility] Co de Phone Number [facility] [place] [address] * Blood culture (05/26/2016 10:04 AM EST) Blood Culture No growth at 5 days. [facility] Blood specimen (specimen) 05/26/2016 10:04 AM EST 05/26/2016 10:35 AM EST Comment:R H Narrative Resulting Agency Comment Spec In Lab Que Amaro MD MICROBIOLOGY - BLOOD ORDERABLES Performing Organization Address [facility] Co de Phone Number [facility] [place] [address] * Urine Hold (05/26/2016 9:54 AM EST) Hold, Urine Sample in lab. [facility] Urine specimen (specimen) Urine / Unknown 05/26/2016 9:54 AM EST 05/26/2016 10:46 AM EST Que Amaro MD URINE ORDERABL ES Performing Organization Address [facility] Co de [place] [address] * (ABNORMAL) Urinalysis without microscopic (05/26/2016 9:54 [...] [facility] Blood, Urine Dipstick Moderate(A) Negative mg/dL [facility] Ketone, Urine Dipstick Negative Negative mg/dL [facility] Nitrite, Urine Dipstick Negative Negative [facility] Leukocytes, Urine Dipstick Moderate(A) Negative [facility] Appearance, Urine Dipstick Clear Clear [facility] Specific [place] Urine Automated 1.027 1.002 - 1.030 [facility] Color, Urine Dipstick Muna Yellow [facility] Urine specimen (specimen) 05/26/2016 9:54 AM EST 05/26/2016 10:46 AM EST Narrative Resulting Agency Comment Spec In Lab Que [place]aro [place] [address] * Urine culture Indwelling Catheter Urine (05/26/2016 9:53 AM EST) Urine Culture No growth (Less than 1,000 cfu/ml). [facility] Urine specimen obtained via indwelling urinary catheter (specimen) 05/26/2016 9:53 AM EST 05/26/2016 10:56 AM EST Narrative Resulting Agency Comment Spec In Lab Que Amaro MD MICROBIOLOGY - GENERAL ORDERABLES Performing Organization Address [facility] Co de Phone Number [facility] [place] [address] * Tacrolimus level (05/26/2016 7:35 AM EST) Pathologist [facility] Tacrolimus 5.3 ng/mL [facility] Comment: Trough therapeutic: ??5-15 ng/mL Performed by ultra-performance liquid chromatography tandem mass spectrometry (UPLCMS/MS). Blood specimen (specimen) 05/26/2016 7:35 AM EST 05/26/2016 11:12 AM EST Narrative Resulting Agency Comment Spec In Lab Que Amaro MD CHEMISTRY ORDE RABLES Performing Organization Address [facility] de Phone Number [facility] [place] [address] * (ABNORMAL) Differential, Automated (05/26/2016 4:30 AM EST) Pathologist [facility] Neutrophil % 80.7 % [facility] Neutrophil Absolute 10.51(H) 1.70 - 6.10 x10(3)/mc L [facility] Lymph % 10.3 % [facility] Lymphocytes Abs 1.3 0.9 - 3.2 x10(3)/mc L [facility] Monocyte % 6.5 % [facility] Monocyte Abs 0.8 0.3 - 0.9 x10(3)/mc L [facility] Eos % 1.6 % [facility] Eosinophils Abs 0.2 0.0 - 0.4 x10(3)/mc L [facility] Basophil % 0.4 % [facility] Baso Absolute 0.0 0.0 - 0.1 x10(3)/mc L [facility] Immature Gran % 0.50 % [facility] Comment: Immature granulocytes(IG's)percentage and absolute count will include metamyelocytes, myelocytes, and promyelocytes. Blood smears from CBCs yielding IG's will be scanned manually for concordance. If this scan disagrees with the automated IG or if promyelocytes are noted, a manual differential will be performed. Immature Gran Absolute 0.06(H) 0.00 - 0.04 x10(3)/mc L [facility] Blood specimen (specimen) 05/26/2016 4:30 AM EST 05/26/2016 4:44 AM EST Narrative Resulting Agency Comment Spec In Lab Que Amaro MD HEMATOLOGY ORD ERABLES [facility] [place] [address] * (ABNORMAL) Hemogram (05/26/2016 4:30 AM EST) White Blood Cell 13.0(H) 4.0 - 9.5 x10(3)/mc L [facility] Red Blood Cell 4.67 4.58 - 5.54 x10(6)/ L [facility] Hemoglobin 14.8 13.7 - 16.5 gm/dL [facility] Hematocrit 43.2 40.5 - 48.5 % [facility] Mean Cell Volume 92.5 82.9 - 93.1 fL [facility] Mean Cell Hemoglobin 31.7 27.5 - 32.1 pg [facility] Mean Cell Hemoglobin Concentration 34.3 32.0 - 35.7 gm/dL [facility] Platelet 304 145 - 357 x10(3)/mc L [facility] RDW Standard Deviation 43.0 36.0 - 45.0 [facility] RDW coefficient of variation 12.9 11.4 - 13.8 % [facility] Mean Platelet Volume 8.6 7.6 - 12.9 fL [facility] NRBC% auto 0.0 % [facility] NRBC Absolute 0.000 0.000 - 0.000 x10(3)/mc L [facility] Blood specimen (specimen) 05/26/2016 4:30 AM EST 05/26/2016 4:44 AM EST Narrative Resulting Agency Comment Spec In Lab Que Amaro MD HEMATOLOGY ORD ERABLES Performing Organization Address [facility] Co de Phone Number [facility] [place] [address] * Magnesium (05/26/2016 4:30 AM EST) Magnesium 0.82 0.69 - 1.07 mmol/L [facility] Blood specimen (specimen) 05/26/2016 4:30 AM EST 05/26/2016 4:44 AM EST Narrative Resulting Agency Comment Spec In Lab Que Amaro MD CHEMISTRY ORDBhargav JENNINGS Performing Organization Address [facility] Co de Phone Number [facility] [place] [address] * Phosphorus (05/26/2016 4:30 AM EST) Phosphorus 3.0 2.5 - 4.5 mg/dL [facility] Blood specimen (specimen) 05/26/2016 4:30 AM EST 05/26/2016 4:44 AM EST Narrative Resulting Agency Comment Spec In Lab Que Amaro MD CHEMISTRY ORDBhargav JENNINGS Performing Organization Address [facility] Co de Phone Number [facility] [place] [address] * (ABNORMAL) Basic Metabolic Panel (non-fasting) (05/26/2016 4:30 AM EST) Glucose 224(H) 65 - 199 mg/dL [facility] Comment:Diabetes: >=200 mg/d L plus symptoms Blood Urea Nitrogen 20 10 - 20 mg/dL [facility] Comment:result rechecked-llu Creatinine 1.32 0.80 - 1.50 mg/dL [facility] Comment: Please note that the pediatric reference intervals supplied above were not validated at [facility]. Results from pediatric patients should be interpreted in conjunction to the patient's age, height and muscle mass. Sodium 143 135 - 145 mmol/L [facility] [...] mmol/L [facility] Anion Gap 20(H) 5 - 15 mmol/L [facility] Calcium 9.8 8.5 - 10.5 mg/dL [facility] Comment:result rechecked-llu Est Glomerular Filtration Rate 54(L) >=60 [facility] Comment: This estimated [...] the following links into your internet browser. [email or web address] Blood specimen (specimen) 05/26/2016 4:30 AM EST 05/26/2016 4:44 AM EST Narrative Resulting Agency Comment Spec In Lab Que Amaro MD CHEMISTRY ROCHELLE David Organization Address City/State/ZIP Co de Phone Number [facility] [place] [address] * (ABNORMAL) Basic Metabolic Panel (non-fasting) (05/25/2016 4:38 PM EST) Glucose 189 65 - 199 mg/dL [facility] Comment:Diabetes: >=200 mg/d L plus symptoms Blood Urea Nitrogen 12 10 - 20 mg/dL [facility] Creatinine 1.10 0.80 - 1.50 mg/dL [facility] Comment: Please note that the pediatric reference intervals supplied above were not validated at [facility]. Results from pediatric patients should be interpreted in conjunction to the patient's age, height and muscle mass. Sodium 140 135 - 145 mmol/L [facility] Potassium 4.0 3.5 - 5.0 mmol/L [facility] [...] mmol/L [facility] Anion Gap 16(H) 5 - 15 mmol/L [facility] [...] the following links into your internet browser. [email or web address] Blood specimen (specimen) 05/25/2016 4:38 PM EST 05/25/2016 4:44 PM EST Narrative Resulting Agency Comment Spec In Lab Que Amaro MD CHEMISTRY ROCHELLE JENNINGS Performing Organization Address City/[facility]/ZIP Co de Phone Number [facility] [place] [address] * Magnesium (05/25/2016 4:38 PM EST) Magnesium 0.74 0.69 - 1.07 mmol/L [facility] Blood specimen (specimen) 05/25/2016 4:38 PM EST 05/25/2016 4:44 PM EST Narrative Resulting Agency Comment Spec In Lab Que Amaro MD CHEMISTRY ROCHELLE JENNINGS Performing Organization Address [facility] Co de Phone Number [facility] [place] [address] * XR Abdomen 1 view (Generic) (05/25/2016 [...] with medication in the gut. There is cckh-ll-tcylruie gaseous distention of the large bowel most [...] correspond withmedication in the gut. There is ruhq-dk-hejxdhvi gaseous distention of the largebowel most suggestive of an adynamic ileus. No free air is seen. Bony structuresappear intact. IMPRESSION Increasing mild to moderate gaseous distention throughout the large bowelmost suggestive of an adynamic or reactive ileus Que Amaro MD IMG DX ORDERAB LES * (ABNORMAL) Magnesium (05/25/2016 4:47 AM EST) [facility] [address] Magnesium 0.61(L) 0.69 - 1.07 mmol/L [facility] Blood specimen (specimen) 05/25/2016 4:47 AM EST 05/25/2016 4:59 AM EST Narrative Resulting Agency Comment Spec In Lab Que Amaro MD CHEMISTRY [employer] Performing Organization Address [facility]/ZIP Co de Phone Number [facility] [place] [address] * Phosphorus (05/25/2016 4:47 AM EST) [facility] [address] Phosphorus 2.5 2.5 - 4.5 mg/dL [facility] Blood specimen (specimen) 05/25/2016 4:47 AM EST 05/25/2016 4:59 AM EST Narrative Resulting Agency Comment Spec In Lab Que Amaro MD CHEMISTRY ORDBhargav Cloud[employer]LENORE Performing Organization Address [facility]/ZIP Co de Phone Number [facility] [place] [address] * Basic Metabolic Panel (non-fasting) (05/25/2016 4:47 AM EST) [facility] [address] Glucose 159 65 - 199 mg/dL [facility] Comment:Diabetes: >=200 mg/d L plus symptoms Blood Urea Nitrogen 10 10 - 20 mg/dL [facility] Creatinine 0.98 0.80 - 1.50 mg/dL [facility] Comment: Please note that the pediatric reference intervals supplied above were not validated at [facility]. Results from pediatric patients should be interpreted in conjunction to the patient's age, height and muscle mass. Sodium 138 135 - 145 mmol/L [facility] Potassium 3.5 3.5 - 5.0 mmol/L [facility] [...] the following links into your internet browser. [email or web address] Blood specimen (specimen) 05/25/2016 4:47 AM EST 05/25/2016 4:59 AM EST Narrative Resulting Agency Comment Spec In Lab Que Amaro MD CHEMISTRY ROCHELLE JENNINGS [facility] Organization Address City/State/ZIP Co de Phone Number [facility] [place] [address] * (ABNORMAL) Differential, Automated (05/25/2016 4:47 AM EST) Neutrophil % 83.2 % [facility] Neutrophil Absolute 8.21(H) 1.70 - 6.10 x10(3)/[facility] Lymph % 9.3 % [facility] Lymphocytes Abs 0.9 0.9 - 3.2 x10(3)/[facility] Monocyte % 5.4 % [facility] Monocyte Abs 0.5 0.3 - 0.9 x10(3)/[facility] Eos % 1.2 % [facility] Eosinophils Abs 0.1 0.0 - 0.4 x10(3)/[facility] Basophil % 0.4 % [facility] Baso Absolute 0.0 0.0 - 0.1 x10(3)/[facility] Immature Gran % 0.50 % [facility] Blood specimen (specimen) 05/25/2016 4:47 AM EST 05/25/2016 4:59 AM EST Narrative Resulting Agency Comment Spec In Lab Que Amaro MD HEMATOLOGY ORD ERABLES [facility] [place] [address] * (ABNORMAL) Hemogram (05/25/2016 4:47 AM EST) White Blood Cell 9.9(H) 4.0 - 9.5 x10(3)/[facility] Red Blood Cell 4.35(L) 4.58 - 5.54 x10(6)/[facility] Hemoglobin 14.2 13.7 - 16.5 gm/dL [facility] Hematocrit 40.3(L) 40.5 - 48.5 % [facility] Mean Cell Volume 92.6 82.9 - 93.1 fL [facility] Mean Cell Hemoglobin 32.6(H) 27.5 - 32.1 pg [facility] Mean Cell Hemoglobin Concentration 35.2 32.0 - 35.7 gm/dL [facility] Platelet 247 145 - 357 x10(3)/[facility] RDW Standard Deviation 42.3 36.0 - 45.0 [facility] RDW coefficient of variation 12.5 11.4 - 13.8 % [facility] Mean Platelet Volume 8.7 7.6 - 12.9 fL [facility] NRBC% auto 0.0 % [facility] NRBC Absolute 0.000 0.000 - 0.000 x10(3)/[facility] Blood specimen (specimen) 05/25/2016 4:47 AM EST 05/25/2016 4:59 AM EST Narrative Resulting Agency Comment Spec In Lab Que Amaro MD HEMATOLOGY ORD ERABLES [facility] [place] [address] * (ABNORMAL) Differential, Automated (05/24/2016 4:45 AM EST) Neutrophil % 75.5 % [facility] Neutrophil Absolute 6.34(H) 1.70 - 6.10 x10(3)/[facility] Lymph % 14.6 % [facility] Lymphocytes Abs 1.2 0.9 - 3.2 x10(3)/[facility] Monocyte % 6.0 % [facility] Monocyte Abs 0.5 0.3 - 0.9 x10(3)/[facility] Eos % 2.9 % [facility] Eosinophils Abs 0.2 0.0 - 0.4 x10(3)/[facility] Basophil % 0.6 % [facility] Baso Absolute 0.0 0.0 - 0.1 x10(3)/[facility] Immature Gran % 0.40 % [facility] Comment: Immature granulocytes(IG's)percentage and absolute count will include metamyelocytes, myelocytes, and promyelocytes. Blood smears from CBCs yielding IG's will be scanned manually for concordance. If this scan disagrees with the automated IG or if promyelocytes are noted, a manual differential will be performed. Immature Gran Absolute 0.03 0.00 - 0.04 x10(3)/[facility] Blood specimen (specimen) 05/24/2016 4:45 AM EST 05/24/2016 5:06 AM EST Narrative Resulting Agency Comment Spec In Lab Que Amaro MD HEMATOLOGY ORD ERABLES [facility] [place] [address] * (ABNORMAL) Hemogram (05/24/2016 4:45 AM EST) White Blood Cell 8.4 4.0 - 9.5 x10(3)/[facility] Red Blood Cell 3.96(L) 4.58 - 5.54 x10(6)/[facility] Hemoglobin 12.7(L) 13.7 - 16.5 gm/dL [facility] Hematocrit 36.6(L) 40.5 - 48.5 % [facility] Mean Cell Volume 92.4 82.9 - 93.1 fL [facility] Mean Cell Hemoglobin 32.1 27.5 - 32.1 pg [facility] Mean Cell Hemoglobin Concentration 34.7 32.0 - 35.7 gm/dL [facility] Platelet 211 145 - 357 x10(3)/mc L [facility] RDW Standard Deviation 42.5 36.0 - 45.0 fL [facility] RDW coefficient of variation 12.5 11.4 - 13.8 % [facility] Mean Platelet Volume 8.9 7.6 - 12.9 fL [facility] NRBC% auto 0.0 % [facility] NRBC Absolute 0.000 0.000 - 0.000 x10(3)/mc L [facility] Blood specimen (specimen) 05/24/2016 4:45 AM EST 05/24/2016 5:06 AM EST Narrative Resulting Agency Comment Spec In Lab Que Amaro MD HEMATOLOGY ORD ERABLES [facility] [place] [address] * (ABNORMAL) Magnesium (05/24/2016 4:45 AM EST) Magnesium 0.59(L) 0.69 - 1.07 mmol/L [facility] Blood specimen (specimen) 05/24/2016 4:45 AM EST 05/24/2016 5:06 AM EST Narrative Resulting Agency Comment Spec In Lab Que Amaro MD CHEMISTRY ORDBhargav JENNINGS [facility] [place] [address] * Phosphorus (05/24/2016 4:45 AM EST) Phosphorus 2.6 2.5 - 4.5 mg/dL [facility] Blood specimen (specimen) 05/24/2016 4:45 AM EST 05/24/2016 5:06 AM EST Narrative Resulting Agency Comment Spec In Lab Que Amaro MD CHEMISTRY ROCHELLE David Organization Address City/State/ZIP Co de Phone Number [facility] [place] [address] * Basic Metabolic Panel (non-fasting) (05/24/2016 4:45 AM EST) Glucose 128 65 - 199 mg/dL [facility] Comment:Diabetes: >=200 mg/d L plus symptoms Blood Urea Nitrogen 10 10 - 20 mg/dL [facility] Creatinine 1.04 0.80 - 1.50 mg/dL [facility] Comment: Please note that the pediatric reference intervals supplied above were not validated at [facility]. Results from pediatric patients should be interpreted in conjunction to the patient's age, height and muscle mass. Sodium 139 135 - 145 mmol/L [facility] [...] 15 mmol/L [facility] Calcium 8.5 8.5 - 10.5 mg/dL [facility] [...] the following links into your internet browser. [email or web address] Blood specimen (specimen) 05/24/2016 4:45 AM EST 05/24/2016 5:06 AM EST Narrative Resulting Agency Comment Spec In Lab Que Amaro MD CHEMISTRY ORDE DICK Performing Organization Address [facility] Co de Phone Number [facility] [place] [address] * Tacrolimus level (05/23/2016 7:50 AM EST) Tacrolimus 5.4 ng/mL [facility] Comment: Trough therapeutic: ??5-15 ng/mL Performed by ultra-performance liquid chromatography tandem mass spectrometry (UPLCMS/MS). Blood specimen (specimen) 05/23/2016 7:50 AM EST 05/23/2016 11:06 AM EST Narrative Resulting Agency Comment Spec In Lab Que Amaro MD CHEMISTRY ORDE DICK Performing Organization Address [facility] Co de Phone Number [facility] [place] [address] * (ABNORMAL) Differential, Automated (05/23/2016 5:43 AM EST) Pathologist [facility] Neutrophil % 72.3 % [facility] Neutrophil Absolute 7.21(H) 1.70 - 6.10 x10(3)/mc L [facility] Lymph % 20.0 % [facility] Lymphocytes Abs 2.0 0.9 - 3.2 x10(3)/mc L [facility] Monocyte % 5.4 % [facility] Monocyte Abs 0.5 0.3 - 0.9 x10(3)/mc L [facility] Eos % 1.2 % [facility] Eosinophils Abs 0.1 0.0 - 0.4 x10(3)/mc L [facility] Basophil % 0.6 % [facility] Baso Absolute 0.1 0.0 - 0.1 x10(3)/mc L [facility] Immature Gran % 0.50 % [facility] Blood specimen (specimen) 05/23/2016 5:43 AM EST 05/23/2016 5:51 AM EST Narrative Resulting Agency Comment Spec In Lab Que Amaro MD HEMATOLOGY ORD ERABLES [facility] [place] [address] * (ABNORMAL) Hemogram (05/23/2016 5:43 AM EST) White Blood Cell 10.0(H) 4.0 - 9.5 x10(3)/ L [facility] Red Blood Cell 4.22(L) 4.58 - 5.54 x10(6)/mc L [facility] Hemoglobin 13.9 13.7 - 16.5 gm/dL [facility] Hematocrit 40.7 40.5 - 48.5 % [facility] Mean Cell Volume 96.4(H) 82.9 - 93.1 fL [facility] Mean Cell Hemoglobin 32.9(H) 27.5 - 32.1 pg [facility] Mean Cell Hemoglobin Concentration 34.2 32.0 - 35.7 gm/dL [facility] Platelet 211 145 - 357 x10(3)/ L [facility] RDW Standard Deviation 44.1 36.0 - 45.0 fL [facility] RDW coefficient of variation 12.5 11.4 - 13.8 % [facility] Mean Platelet Volume 8.9 7.6 - 12.9 fL [facility] NRBC% auto 0.0 % [facility] NRBC Absolute 0.000 0.000 - 0.000 x10(3)/mc L [facility] Blood specimen (specimen) 05/23/2016 5:43 AM EST 05/23/2016 5:51 AM EST Narrative Resulting Agency Comment Spec In Lab Que Amaro MD HEMATOLOGY ORD ERABLES Performing Organization Address [facility]/ZIP Co de Phone Number [facility] [place] [address] * (ABNORMAL) Magnesium (05/23/2016 5:37 AM EST) Magnesium 0.55(L) 0.69 - 1.07 mmol/L [facility] Blood specimen (specimen) 05/23/2016 5:37 AM EST 05/23/2016 5:51 AM EST Narrative Resulting Agency Comment Spec In Lab Que Amaro MD CHEMISTRY ORDBhargav JENNINGS Performing Organization Address [facility] Co de Phone Number [facility] [place] [address] * (ABNORMAL) Phosphorus (05/23/2016 5:37 AM EST) Phosphorus 2.2(L) 2.5 - 4.5 mg/dL [facility] Blood specimen (specimen) 05/23/2016 5:37 AM EST 05/23/2016 5:51 AM EST Narrative Resulting Agency Comment Spec In Lab Que Amaro MD CHEMISTRY ROCHELLE JENNINGS Performing Organization Address City/[facility] Co de Phone Number [facility] [place] [address] * (ABNORMAL) Basic Metabolic Panel (non-fasting) (05/23/2016 5:37 AM EST) Glucose 136 65 - 199 mg/dL [facility] Comment:Diabetes: >=200 mg/d L plus symptoms Blood Urea Nitrogen 14 10 - 20 mg/dL [facility] Creatinine 1.24 0.80 - 1.50 mg/dL [facility] Comment: Please note that the pediatric reference intervals supplied above were not validated at [facility]. Results from pediatric patients should be interpreted in conjunction to the patient's age, height and muscle mass. Sodium 140 135 - 145 mmol/L [facility] Est Glomerular Filtration Rate 58(L) >=60 [facility] Comment: This estimated [...] the following links into your internet browser. [email or web address] Blood specimen (specimen) 05/23/2016 5:37 AM EST 05/23/2016 5:51 AM EST Narrative Resulting Agency Comment Spec In Lab Que Amaro MD CHEMISTRY ROCHELLE JENNINGS Performing Organization Address City/State/[facility] de Phone Number [facility] [place] [address] * Vancomycin, trough (05/22/2016 7:29 AM EST) [facility] [address] Vancomycin, Trough 17.4 mg/L [facility] Comment: Therapeutic range for complicated [...] JENNINGS Performing Organization Address [facility] Co de Phone Number [facility] [place] [address] * (ABNORMAL) Differential, Automated (05/22/2016 7:29 AM EST) [facility] [address] Neutrophil % 81.7 % [facility] Neutrophil Absolute 8.59(H) 1.70 - 6.10 x10(3)/mc L [facility] Lymph % 11.3 % [facility] Lymphocytes Abs 1.2 0.9 - 3.2 x10(3)/mc L [facility] Monocyte % 6.3 % [facility] Monocyte Abs 0.7 0.3 - 0.9 x10(3)/mc L [facility] Eos % 0.1 % [facility] Eosinophils Abs 0.0 0.0 - 0.4 x10(3)/mc L [facility] Basophil % 0.2 % [facility] Baso [...] [facility] Blood specimen (specimen) 05/22/2016 7:29 AM EST 05/22/2016 8:02 AM EST Narrative Resulting Agency Comment Spec In Lab Que Amaro MD HEMATOLOGY ORD ERABLES [facility] [place] [address] * (ABNORMAL) Hemogram (05/22/2016 7:29 AM EST) White Blood Cell 10.5(H) 4.0 - 9.5 x10(3)/[facility] Red Blood Cell 3.92(L) 4.58 - 5.54 x10(6)/[facility] Hemoglobin 12.8(L) 13.7 - 16.5 gm/dL [facility] Hematocrit 36.7(L) 40.5 - 48.5 % [facility] Mean Cell Volume 93.6(H) 82.9 - 93.1 fL [facility] Mean Cell Hemoglobin 32.7(H) 27.5 - 32.1 pg [facility] Mean Cell Hemoglobin Concentration 34.9 32.0 - 35.7 gm/dL [facility] Platelet 210 145 - 357 x10(3)/[facility] RDW Standard Deviation 43.1 36.0 - 45.0 fL [facility] RDW coefficient of variation 12.5 11.4 - 13.8 % [facility] Mean Platelet Volume 8.9 7.6 - 12.9 fL [facility] NRBC% auto 0.0 % [facility] NRBC Absolute 0.000 0.000 - 0.000 x10(3)/mc L [facility] Blood specimen (specimen) 05/22/2016 7:29 AM EST 05/22/2016 8:02 AM EST Narrative Resulting Agency Comment Spec In Lab Que Amaro MD HEMATOLOGY ORD ERABLES Performing Organization Address City/[facility]/ZIP Co de Phone Number [facility] [place] [address] * (ABNORMAL) Magnesium (05/22/2016 7:29 AM EST) Magnesium 0.65(L) 0.69 - 1.07 mmol/L [facility] Blood specimen (specimen) 05/22/2016 7:29 AM EST 05/22/2016 8:02 AM EST Narrative Resulting Agency Comment Spec In Lab Que Amaro MD CHEMISTRY ORDBhargav JENNINGS Performing Organization Address [facility] Co de Phone Number [facility] [place] [address] * Phosphorus (05/22/2016 7:29 AM EST) Phosphorus 2.6 2.5 - 4.5 mg/dL [facility] Blood specimen (specimen) 05/22/2016 7:29 AM EST 05/22/2016 8:02 AM EST Narrative Resulting Agency Comment Spec In Lab Que Amaro MD CHEMISTRY ORDBhargav JENNINGS Performing Organization Address City/[facility] Co de Phone Number [facility] [place] [address] * (ABNORMAL) Basic Metabolic Panel (non-fasting) (05/22/2016 7:29 AM EST) Glucose 159 65 - 199 mg/dL [facility] Comment:Diabetes: >=200 mg/d L plus symptoms Blood Urea Nitrogen 19 10 - 20 mg/dL [facility] Creatinine 1.37 0.80 - 1.50 mg/dL [facility] Comment: Please note that the pediatric reference intervals supplied above were not validated at [facility]. Results from pediatric patients should be interpreted in conjunction to the patient's age, height and muscle mass. Sodium 137 135 - 145 mmol/L [facility] Potassium 4.0 3.5 - 5.0 mmol/L [facility] Comment: Please note: ??Patients with WBC >100,000 may have falsely elevated Potassium levels. ??For accurate Potassium quantification in these patients send serum separator tube (gold top) for subsequent determinations. ??Contact the Clinical Chemistry Laboratory if there are any questions. Chloride 101 98 - 107 mmol/L [facility] Carbon Dioxide 22 22 - 31 mmol/L [facility] Anion Gap 14 5 - 15 mmol/L [facility] Calcium 8.9 8.5 - 10.5 mg/dL [facility] Est Glomerular Filtration Rate 52(L) >=60 [facility] Comment: This estimated [...] the following links into your internet browser. [email or web address] Blood specimen (specimen) 05/22/2016 7:29 AM EST 05/22/2016 8:02 AM EST Narrative Resulting Agency Comment Spec In Lab Que Amaro MD CHEMISTRY ROCHELLE JENNINGS [facility] Organization Address City/State/ZIP Co de Phone Number [facility] [place] [address] * (ABNORMAL) Urinalysis with reflex Culture (05/21/2016 [...] [facility] Blood, Urine Dipstick Large(A) Negative mg/dL [facility] Ketone, Urine Dipstick Negative Negative mg/dL [facility] Nitrite, Urine Dipstick Negative Negative [facility] Leukocytes, Urine Dipstick Large(A) Negative [facility] Appearance, Urine Dipstick Clear Clear [facility] Specific [place] Urine Automated 1.021 1.002 - 1.030 [facility] Color, Urine Dipstick Yellow Yellow [facility] RBC, Urine 33(H) 0 - 3 /HPF [facility] WBC, Urine 25(H) 0 - 3 /HPF [facility] Bacteria, Urine Rare(A) None /HPF [facility] Squamous Epithelial Cells, Urine <1 <=4 /HPF [facility] Reflex to Culture Dup Culture [facility] Urine specimen obtained by clean catch procedure (specimen) 05/21/2016 10:52 AM EST 05/21/2016 10:59 AM EST Narrative Resulting Agency Comment Spec In Lab Que Amaro MD URINE ORDERABL ES [facility] [place] [address] * Urine culture Nephrostomy Urine (05/21/2016 10:51 AM EST) Urine Culture No growth (Less than 1,000 cfu/ml). [facility] Urine specimen obtained by clean catch procedure (specimen) 05/21/2016 10:51 AM EST 05/22/2016 4:32 PM EST Narrative Resulting Agency Comment Spec In Lab Que Amaro MD MICROBIOLOGY - GENERAL ORDERABLES Performing Organization Address City/[facility]/ZIP Co de Phone Number [facility] [place] [address] * Tacrolimus level (05/21/2016 7:52 AM EST) Tacrolimus 6.6 ng/mL [facility] Comment: Trough therapeutic: ??5-15 ng/mL Performed by ultra-performance liquid chromatography tandem mass spectrometry (UPLCMS/MS). Blood specimen (specimen) 05/21/2016 7:52 AM EST 05/21/2016 10:42 AM EST Narrative Resulting Agency Comment Spec In Lab Que Amaro MD CHEMISTRY ORDE RABLES Performing Organization Address [facility] Co de Phone Number [facility] [place] [address] * XR Abdomen 1 view (Generic) (05/21/2016 [...] 5:53 AM EST) Neutrophil % 90.9 % [facility] Neutrophil Absolute 10.31(H) 1.70 - 6.10 x10(3)/mc L [facility] Lymph % 4.5 % [facility] Lymphocytes Abs 0.5(L) 0.9 - 3.2 x10(3)/mc L [facility] Monocyte % 4.0 % [facility] Monocyte Abs 0.4 0.3 - 0.9 x10(3)/mc L [facility] Eos % 0.0 % [facility] Eosinophils Abs 0.0 0.0 - 0.4 x10(3)/mc L [facility] Basophil % 0.2 % [facility] Baso [...] [facility] Blood specimen (specimen) 05/21/2016 5:53 AM EST 05/21/2016 6:15 AM EST Narrative Resulting Agency Comment Spec In Lab Que Amaro MD HEMATOLOGY ORD ERABLES [facility] [place] [address] * (ABNORMAL) Hemogram (05/21/2016 5:53 AM EST) White Blood Cell 11.3(H) 4.0 - 9.5 x10(3)/[facility] LAB[facility]AT[facility] Red Blood Cell 4.15(L) 4.58 - 5.54 x10(6)/ L [facility] Hemoglobin 13.5(L) 13.7 - 16.5 gm/dL [facility] Hematocrit 37.8(L) 40.5 - 48.5 % [facility] Mean Cell Volume 91.1 82.9 - 93.1 [facility] Mean Cell Hemoglobin 32.5(H) 27.5 - 32.1 pg [facility] Mean Cell Hemoglobin Concentration 35.7 32.0 - 35.7 gm/dL [facility] Platelet 222 145 - 357 x10(3)/[facility] RDW Standard Deviation 40.7 36.0 - 45.0 [facility] RDW coefficient of variation 12.2 11.4 - 13.8 % [facility] Mean Platelet Volume 8.8 7.6 - 12.9 [facility] NRBC% auto 0.0 % [facility] NRBC Absolute 0.000 0.000 - 0.000 x10(3)/ L [facility] Blood specimen (specimen) 05/21/2016 5:53 AM EST 05/21/2016 6:15 AM EST Narrative Resulting Agency Comment Spec In Lab Que Amaro MD HEMATOLOGY ORD ERABLES Performing Organization Address [facility] Co de Phone Number [facility] [place] [address] * (ABNORMAL) Magnesium (05/21/2016 5:53 AM EST) Magnesium 0.51(L) 0.69 - 1.07 mmol/L [facility] Blood specimen (specimen) 05/21/2016 5:53 AM EST 05/21/2016 6:15 AM EST Narrative Resulting Agency Comment Spec In Lab Que Amaro MD CHEMISTRY ORDBhargav JENNINGS Performing Organization Address [facility] de Phone Number [facility] [place] [address] * (ABNORMAL) Phosphorus (05/21/2016 5:53 AM EST) Phosphorus 2.4(L) 2.5 - 4.5 mg/dL [facility] Blood specimen (specimen) 05/21/2016 5:53 AM EST 05/21/2016 6:15 AM EST Narrative Resulting Agency Comment Spec In Lab Que Amaro MD CHEMISTRY ORDBhargav JENNINGS Performing Organization Address [facility] de Phone Number [facility] [place] [address] * (ABNORMAL) Basic Metabolic Panel (non-fasting) (05/21/2016 5:53 AM EST) Glucose 269(H) 65 - 199 mg/dL [facility] Comment:Diabetes: >=200 mg/d L plus symptoms Blood Urea Nitrogen 17 10 - 20 mg/dL [facility] Creatinine 1.27 0.80 - 1.50 mg/dL [facility] Comment: Please note that the pediatric reference intervals supplied above were not validated at [facility]. Results from pediatric patients should be interpreted in conjunction to the patient's age, height and muscle mass. Sodium 136 135 - 145 mmol/L [facility] Potassium 4.5 3.5 - 5.0 mmol/L [facility] Comment: Please note: ??Patients with WBC >100,000 may have falsely elevated Potassium levels. ??For accurate Potassium quantification in these patients send serum separator tube (gold top) for subsequent determinations. ??Contact the Clinical Chemistry Laboratory if there are any questions. Chloride 101 98 - 107 mmol/L [facility] Carbon Dioxide 18(L) 22 - 31 mmol/L [facility] Anion Gap 17(H) 5 - 15 mmol/L [facility] Calcium 8.4(L) 8.5 - 10.5 mg/dL [facility] Est Glomerular Filtration Rate 57(L) >=60 [facility] Comment: This estimated [...] the following links into your internet browser. [email or web address] Blood specimen (specimen) 05/21/2016 5:53 AM EST 05/21/2016 6:15 AM EST Narrative Resulting Agency Comment Spec In Lab Que Amaro MD CHEMISTRY ROCHELLE JENNINGS [facility] [place] [address] * US Renal Transplant Left (05/20/2016 10:18 [...] at 05/27/2016 11:38 AM Que Amaro MD [facility] GEN ORD ERABLES * (ABNORMAL) Differential, Automated (05/20/2016 10:15 PM EST) Neutrophil % 92.5 % [facility] Neutrophil Absolute 9.41(H) 1.70 - 6.10 x10(3)/mc L [facility] Lymph % 4.3 % [facility] Lymphocytes Abs 0.4(L) 0.9 - 3.2 x10(3)/mc L [facility] Monocyte % 2.3 % [facility] Monocyte Abs 0.2(L) 0.3 - 0.9 x10(3)/[facility] Eos % 0.1 % [facility] Eosinophils Abs 0.0 0.0 - 0.4 x10(3)/[facility] Basophil % 0.3 % [facility] Baso Absolute 0.0 0.0 - 0.1 x10(3)/[facility] Immature Gran % 0.50 % [facility] Blood specimen (specimen) 05/20/2016 10:15 PM EST 05/20/2016 10:25 PM EST Narrative Resulting Agency Comment Spec In Lab Que Amaro MD HEMATOLOGY ORD ERABLES [facility] [place] [address] * (ABNORMAL) Hemogram (05/20/2016 10:15 PM EST) White Blood Cell 10.2(H) 4.0 - 9.5 x10(3)/[facility] Red Blood Cell 4.36(L) 4.58 - 5.54 x10(6)/[facility] Hemoglobin 13.9 13.7 - 16.5 gm/dL [facility] Hematocrit 40.6 40.5 - 48.5 % [facility] Mean Cell Volume 93.1 82.9 - 93.1 fL [facility] Mean Cell Hemoglobin 31.9 27.5 - 32.1 pg [facility] Mean Cell Hemoglobin Concentration 34.2 32.0 - 35.7 gm/dL [facility] Platelet 214 145 - 357 x10(3)/mc L [facility] RDW Standard Deviation 42.1 36.0 - 45.0 fL [facility] RDW coefficient of variation 12.2 11.4 - 13.8 % [facility] Mean Platelet Volume 8.7 7.6 - 12.9 fL [facility] NRBC% auto 0.0 % [facility] NRBC Absolute 0.000 0.000 - 0.000 x10(3)/mc L [facility] Blood specimen (specimen) 05/20/2016 10:15 PM EST 05/20/2016 10:25 PM EST Narrative Resulting Agency Comment Spec In Lab Que Amaro MD HEMATOLOGY ORD ERABLES Performing Organization Address [facility]/ZIP Co de Phone Number [facility] [address] * Lactate, whole blood, send to lab (05/20/2016 10:15 PM EST) Lactate WB 1.4 0.5 - 2.2 mmol/L [facility] Blood specimen (specimen) 05/20/2016 10:15 PM EST 05/20/2016 10:25 PM EST Narrative Resulting Agency Comment Spec In Lab Que Amaro MD CHEMISTRY ROCHELLE JENNINGS [facility] [place] [address] * Phosphorus (05/20/2016 10:15 PM EST) Phosphorus 3.0 2.5 - 4.5 mg/dL [facility] Blood specimen (specimen) 05/20/2016 10:15 PM EST 05/20/2016 10:25 PM EST Narrative Resulting Agency Comment Spec In Lab Que Amaro MD CHEMISTRY ROCHELLE JENNINGS Performing Organization Address [facility] Co de Phone Number [facility] [place] [address] * (ABNORMAL) Magnesium (05/20/2016 10:15 PM EST) Pathologist [facility] Magnesium 0.51(L) 0.69 - 1.07 mmol/L [facility] Blood specimen (specimen) 05/20/2016 10:15 PM EST 05/20/2016 10:25 PM EST Narrative Resulting Agency Comment Spec In Lab Que Amaro MD CHEMISTRY ROCHELLE JENNINGS Performing Organization Address [facility] de Phone Number [facility] [place] [address] * (ABNORMAL) BMP w/fasting Glucose (05/20/2016 10:15 PM EST) Pathologist [facility] Glucose Fasting 254(H) 65 - 99 mg/dL [facility] [...] of Diabetes Mellitus, Position Statement from the [employer]. ??Diabetes Care, Volume 33, Supplement 1, Jul 2009 Blood Urea Nitrogen 16 10 - 20 mg/dL [facility] Creatinine 1.21 0.80 - 1.50 mg/dL [facility] Comment: Please note that the pediatric reference intervals supplied above were not validated at [facility]. Results from pediatric patients should be interpreted in conjunction to the patient's age, height and muscle mass. Sodium 138 135 - 145 mmol/L [facility] Potassium 4.3 3.5 - 5.0 mmol/L [facility] Comment: Please note: ??Patients with WBC >100,000 may have falsely elevated Potassium levels. ??For accurate Potassium quantification in these patients send serum separator tube (gold top) for subsequent determinations. ??Contact the Clinical Chemistry Laboratory if there are any questions. Chloride 104 98 - 107 mmol/L [facility] Carbon Dioxide 20(L) 22 - 31 mmol/L [facility] Anion Gap 14 5 - 15 mmol/L [facility] Calcium 8.4(L) 8.5 - 10.5 mg/dL [facility] Est Glomerular Filtration Rate 60 >=60 [facility] Comment: This estimated [...] the following links into your internet browser. [email or web address] Blood specimen (specimen) 05/20/2016 10:15 PM EST 05/20/2016 10:25 PM EST Narrative Resulting Agency Comment Spec In Lab Que Amaro [facility] Organization Address City/State/ZIP Co de Phone Number [facility] [place] [address] * Specimen to Pathology (surgical or derm) (05/20/2016 7:38 PM EST) AP Specimen 05/20/2016 7:38 PM EST 05/20/2016 7:38 PM EST Narrative [facility] - 05/20/2016 7:38 PM EST Specimen requisition ordered. ??Separate Pathology report to follow Que Amaro MD PATHOLOGY/CYTO LOGY ORDERABLES Performing Organization Address [facility] de Phone Number [facility] [place] [address] * (ABNORMAL) POCT Glucose (05/20/2016 7:32 PM EST) Glucose, POC 204(H) 65 - 199 mg/dL [facility] Comment: Supplemental ranges: <140 mg/dL before meals <180 mg/dL all other times of the day Blood specimen (specimen) 05/20/2016 7:32 PM EST 05/20/2016 7:32 PM EST Que Amaro MD POINT OF CARE TEST ORDERABLES Performing Organization Address [facility] de Phone Number [facility] [place] [address] * (ABNORMAL) POCT Glucose (05/20/2016 7:30 PM EST) Glucose, POC 220(H) 65 - 199 mg/dL [facility] Comment: Supplemental ranges: <140 mg/dL before meals <180 mg/dL all other times of the day Blood specimen (specimen) 05/20/2016 7:30 PM EST 05/20/2016 7:30 PM EST Que Amaro MD POINT OF CARE TEST ORDERABLES Performing Organization Address [facility] Co de Phone Number [facility] [place] [address] * Specimen to Pathology (surgical or derm) (05/20/2016 7:25 PM EST) AP Specimen 05/20/2016 7:25 PM EST 05/20/2016 7:25 PM EST Narrative [facility] - 05/20/2016 7:25 PM EST Specimen requisition ordered. ??Separate Pathology report to follow Que Amaro MD PATHOLOGY/CYTO LOGY ORDERABLES Performing Organization Address City/[facility]/ZIP Co de Phone Number [facility] [place] [address] * Surgical Pathology Report (05/20/2016 7:23 PM EST) Final Diagnosis [id number] ?Location: [facility]; [facility]; A The signing pathologist has (i) examined the relevant preparation(s) for the specimen(s) and (ii) rendered or confirmed the diagnosis(es). . 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 ?2. No evidence of viral inclusions. B - [place] left ureter: ?1. Benign ureter. ?2. No [...] - Left transplant kidney ureter B - [place] left ureter Clinical History: Left ureteral stricture [...] central cross- sections. ??(R2) B - ??Labeled/Fixative: [place] left ureter, fresh. Quantity/Size: Single, 8.2 x 0.4 x 0.4 cm. Tissue Description: Unoriented segment of ureter. ??The wall averages 0.2 cm in thickness. there is a stellate lumen. ??The mucosa is glistening pink-oro. . SPECIMEN PROCESSING Sections/Processing: (1) Sections from the ends of the specimen; (2) additional central cross sections. ??(R2) ??ejr 05/23/2016 9:45 AM EST [facility] [place]IC [place]UCTURE / Unknown 05/20/2016 7:23 PM EST 05/20/2016 7:23 PM EST URETERIC STRUCTURE / Unknown 05/20/2016 7:23 PM EST 05/20/2016 7:23 PM EST Que Amaro MD PATHOLOGY/CYTO LOGY ORDERABLES Performing Organization Address [facility]/ZIP Co de Phone Number [facility] [place] [address] * XR Fluoro No Rad <1Hr (05/20/2016 1:59 PM EST) Narrative RAD - 05/20/2016 1:59 PM EST This order does not need a radiologist interpretation. ?? Que Amaro MD IMG FLUORO ORD ERABLES Performing Organization Address [facility]/ZIP Co de Phone Number [place], [place] * Differential, Automated (05/20/2016 5:47 AM EST) Neutrophil % 72.4 % [facility] Neutrophil Absolute 5.83 1.70 - 6.10 x10(3)/[facility] LAB[facility] Lymph % 15.8 % [facility] Lymphocytes Abs 1.3 0.9 - 3.2 x10(3)/[facility]ORY Monocyte % 6.1 % [facility] Monocyte Abs 0.5 0.3 - 0.9 x10(3)/[facility] LABORATORY Eos % 4.1 % [facility] Eosinophils Abs 0.3 0.0 - 0.4 x10(3)/[facility] LABORATORY Basophil % 1.1 % [facility] Baso Absolute 0.1 0.0 - 0.1 x10(3)/[facility] LABORATORY Immature Gran % 0.50 % [facility] [...] MD HEMATOLOGY ORD ERABLES Performing Organization Address City/State/[facility] Co de Phone Number [facility] [place] [address] * (ABNORMAL) Hemogram (05/20/2016 5:47 AM EST) White Blood Cell 8.0 4.0 - 9.5 x10(3)/ L [facility] Red Blood Cell 4.41(L) 4.58 - 5.54 x10(6)/ L [facility] Hemoglobin 14.1 13.7 - 16.5 gm/dL [facility] Hematocrit 40.0(L) 40.5 - 48.5 % [facility] Mean Cell Volume 90.7 82.9 - 93.1 fL [facility] Mean Cell Hemoglobin 32.0 27.5 - 32.1 pg [facility] Mean Cell Hemoglobin Concentration 35.3 32.0 - 35.7 gm/dL [facility] Platelet 214 145 - 357 x10(3)/mc L [facility] RDW Standard Deviation 39.4 36.0 - 45.0 fL [facility] RDW coefficient of variation 11.9 11.4 - 13.8 % [facility] Mean Platelet Volume 8.6 7.6 - 12.9 fL [facility] NRBC% auto 0.0 % [facility] NRBC Absolute 0.000 0.000 - 0.000 x10(3)/mc L [facility] Blood specimen (specimen) 05/20/2016 5:47 AM EST 05/20/2016 5:58 AM EST Narrative Resulting Agency Comment Spec In Lab Que Amaro MD HEMATOLOGY ORD ERABLES Performing Organization Address City/[facility]/ZIP Co de Phone Number [facility] [place] [address] * (ABNORMAL) Magnesium (05/20/2016 5:47 AM EST) Magnesium 0.55(L) 0.69 - 1.07 mmol/L [facility] Blood specimen (specimen) 05/20/2016 5:47 AM EST 05/20/2016 5:58 AM EST Narrative Resulting Agency Comment Spec In Lab Que Amaro MD CHEMISTRY ORDE DICK Performing Organization Address City/[facility]/ZIP Co de Phone Number [facility] [place] [address] * (ABNORMAL) Phosphorus (05/20/2016 5:47 AM EST) Phosphorus 2.4(L) 2.5 - 4.5 mg/dL [facility] Blood specimen (specimen) 05/20/2016 5:47 AM EST 05/20/2016 5:58 AM EST Narrative Resulting Agency Comment Spec In Lab Que Amaro MD CHEMISTRY ROCHELLE JENNINGS [facility] [place] [address] * Basic Metabolic Panel (non-fasting) (05/20/2016 5:47 AM EST) Glucose 150 65 - 199 mg/dL [facility] Comment:Diabetes: >=200 mg/d L plus symptoms Blood Urea Nitrogen 12 10 - 20 mg/dL [facility] Creatinine 1.14 0.80 - 1.50 mg/dL [facility] Comment: Please note that the pediatric reference intervals supplied above were not validated at [facility]. Results from pediatric patients should be interpreted in conjunction to the patient's age, height and muscle mass. Sodium 138 135 - 145 mmol/L [facility] Potassium 3.5 3.5 - 5.0 mmol/L [facility] [...] 15 mmol/L [facility] Calcium 9.0 8.5 - 10.5 mg/dL [facility] [...] the following links into your internet browser. [email or web address] Blood specimen (specimen) 05/20/2016 5:47 AM EST 05/20/2016 5:58 AM EST Narrative Resulting Agency Comment Spec In Lab Que Amaro MD CHEMISTRY ROCHELLE JENNINGS Performing Organization Address [facility] de Phone Number [facility] [address] * Tacrolimus level (05/19/2016 8:00 AM EST) Tacrolimus 8.1 ng/mL [facility] Comment: Trough therapeutic: ??5-15 ng/mL Performed by ultra-performance liquid chromatography tandem mass spectrometry (UPLCMS/MS). Blood specimen (specimen) 05/19/2016 8:00 AM EST 05/19/2016 10:28 AM EST Narrative Resulting Agency Comment Spec In Lab Que JENNINGS Performing Organization Address [facility] de Phone Number [facility] [place] [address] * Antibody screen (05/19/2016 4:17 AM EST) Ab Screen Interp Negative [facility] Expires at [id number] on: 05/22/2016 [facility] Blood specimen (specimen) 05/19/2016 4:17 AM EST 05/19/2016 4:33 AM EST Narrative Resulting Agency Comment Spec In Lab Que Amaro MD BLOOD BANK LAB ORDERABLES Performing Organization Address [facility] de Phone Number [facility] [place] [address] * ABO/Rh Typing (05/19/2016 4:17 AM EST) ABORH Type AB Pos [facility] Blood specimen (specimen) 05/19/2016 4:17 AM EST 05/19/2016 4:33 AM EST Narrative Resulting Agency Comment Spec In Lab Que Amaro MD BLOOD BANK LAB ORDERABLES Performing Organization Address [facility] de Phone Number [facility] [place] [address] * Prothrombin Time (05/19/2016 4:17 AM EST) Pathologist [facility] Prothrombin Time 13.3 12.0 - 15.0 sec [facility] Comment: An INR [...] International Normalization Ratio 1.0 0.9 - 1.1 [facility] Blood specimen (specimen) 05/19/2016 4:17 AM EST 05/19/2016 4:35 AM EST Narrative Resulting Agency Comment Spec In Lab Que Amaro MD HEMATOLOGY ORD ERABLES Performing Organization Address [facility] de Phone Number [facility] [place] [address] * Differential, Automated (05/19/2016 4:17 AM EST) Pathologist [facility] Neutrophil % 69.8 % [facility] Neutrophil Absolute 5.19 1.70 - 6.10 x10(3)/[facility] LABORATORY Lymph % 18.5 % [facility] Lymphocytes Abs 1.4 0.9 - 3.2 x10(3)/[facility] LAB[facility]ORY Monocyte % 6.2 % [facility] Monocyte Abs 0.5 0.3 - 0.9 x10(3)/[facility] LABORATORY Eos % 3.9 % [facility] Eosinophils Abs 0.3 0.0 - 0.4 x10(3)/[facility] Basophil % 1.1 % [facility] Baso Absolute 0.1 0.0 - 0.1 x10(3)/[facility] LAB[facility]ATORY Immature Gran % 0.50 % [facility] Blood specimen (specimen) 05/19/2016 4:17 AM EST 05/19/2016 4:35 AM EST Narrative Resulting Agency Comment Spec In Lab Que Amaro MD HEMATOLOGY ORD ERABLES [facility] [place] [address] * (ABNORMAL) Hemogram (05/19/2016 4:17 AM EST) White Blood Cell 7.4 4.0 - 9.5 x10(3)/mc L [facility] Red Blood Cell 4.43(L) 4.58 - 5.54 x10(6)/mc L [facility] Hemoglobin 14.2 13.7 - 16.5 gm/dL [facility] Hematocrit 40.2(L) 40.5 - 48.5 % [facility] Mean Cell Volume 90.7 82.9 - 93.1 fL [facility] Mean Cell Hemoglobin 32.1 27.5 - 32.1 pg [facility] Mean Cell Hemoglobin Concentration 35.3 32.0 - 35.7 gm/dL [facility] Platelet 192 145 - 357 x10(3)/mc L [facility] RDW Standard Deviation 39.8 36.0 - 45.0 [facility] LABORATORY RDW coefficient of variation 11.9 11.4 - 13.8 % [facility] Mean Platelet Volume 8.9 7.6 - 12.9 [facility] LAB[facility]ORY NRBC% auto 0.0 % [facility] NRBC Absolute 0.000 0.000 - 0.000 x10(3)/mc L [facility] Blood specimen (specimen) 05/19/2016 4:17 AM EST 05/19/2016 4:35 AM EST Narrative Resulting Agency Comment Spec In Lab Que Amaro MD HEMATOLOGY ORD ERABLES Performing Organization Address [facility] Co de Phone Number [facility] [place] [address] * (ABNORMAL) Magnesium (05/19/2016 4:17 AM EST) Magnesium 0.68(L) 0.69 - 1.07 mmol/L [facility] Blood specimen (specimen) 05/19/2016 4:17 AM EST 05/19/2016 4:35 AM EST Narrative Resulting Agency Comment Spec In Lab Que Amaro MD CHEMISTRY ORDBhargav JENNINGS Performing Organization Address [facility] Co la Phone Number [facility] [place] [address] * (ABNORMAL) Phosphorus (05/19/2016 4:17 AM EST) Phosphorus 2.4(L) 2.5 - 4.5 mg/dL [facility] Blood specimen (specimen) 05/19/2016 4:17 AM EST 05/19/2016 4:35 AM EST Narrative Resulting Agency Comment Spec In Lab Que Amaro MD CHEMISTRY ORDBhargav JENNINGS Performing Organization Address City/[facility]/ZIP Co de Phone Number [facility] [place] [address] * (ABNORMAL) Basic Metabolic Panel (non-fasting) (05/19/2016 4:17 AM EST) Glucose 166 65 - 199 mg/dL [facility] Comment:Diabetes: >=200 mg/d L plus symptoms Blood Urea Nitrogen 11 10 - 20 mg/dL [facility] Creatinine 1.09 0.80 - 1.50 mg/dL [facility] Comment: Please note that the pediatric reference intervals supplied above were not validated at [facility]. Results from pediatric patients should be interpreted in conjunction to the patient's age, height and muscle mass. Sodium 140 135 - 145 mmol/L [facility] [...] mmol/L [facility] Anion Gap 16(H) 5 - 15 mmol/L [facility] Calcium 9.0 8.5 - 10.5 mg/dL [facility] [...] the following links into your internet browser. [email or web address] Blood specimen (specimen) 05/19/2016 4:17 AM EST 05/19/2016 4:35 AM EST Narrative Resulting Agency Comment Spec In Lab Que Amaro MD CHEMISTRY ORDE DICK Performing Organization Address City/[facility]/ZIP Co de Phone Number [facility] [place] [address] * Differential, Automated (05/18/2016 5:54 AM EST) Neutrophil % 69.2 % [facility] Neutrophil Absolute 5.48 1.70 - 6.10 x10(3)/[facility] LABORATORY Lymph % 18.5 % [facility] Lymphocytes Abs 1.5 0.9 - 3.2 x10(3)/[facility] LAB[facility]ORY Monocyte % 6.6 % [facility] Monocyte Abs 0.5 0.3 - 0.9 x10(3)/[facility] LAB[facility]AT[facility] Eos % 4.3 % [facility] Eosinophils Abs 0.3 0.0 - 0.4 x10(3)/[facility] Basophil % 1.1 % [facility] Baso Absolute 0.1 0.0 - 0.1 x10(3)/[facility] LABORATORY Immature Gran % 0.30 % [facility] Comment: Immature granulocytes(IG's)percentage and absolute count will include metamyelocytes, myelocytes, and promyelocytes. Blood smears from CBCs yielding IG's will be scanned manually for concordance. If this scan disagrees with the automated IG or if promyelocytes are noted, a manual differential will be performed. Immature Gran Absolute 0.02 0.00 - 0.04 x10(3)/[facility] LAB[facility]ATORY Blood specimen (specimen) 05/18/2016 5:54 AM EST 05/18/2016 6:00 AM EST Narrative Resulting Agency Comment Spec In Lab Que Amaro MD HEMATOLOGY ORD MILAGROS Performing Organization Address City/[facility]/ZIP Co de Phone Number [facility] [place] [address] * (ABNORMAL) Hemogram (05/18/2016 5:54 AM EST) White Blood Cell 7.9 4.0 - 9.5 x10(3)/ L [facility] Red Blood Cell 4.51(L) 4.58 - 5.54 x10(6)/[facility] LABORATORY Hemoglobin 14.4 13.7 - 16.5 gm/dL [facility] Hematocrit 40.5 40.5 - 48.5 % [facility] Mean Cell Volume 89.8 82.9 - 93.1 fL [facility] Mean Cell Hemoglobin 31.9 27.5 - 32.1 pg [facility] Mean Cell Hemoglobin Concentration 35.6 32.0 - 35.7 gm/dL [facility] Platelet 205 145 - 357 x10(3)/[facility] LABORATORY RDW Standard Deviation 39.8 36.0 - 45.0 [facility] LABORATORY RDW coefficient of variation 12.1 11.4 - 13.8 % [facility] Mean Platelet Volume 8.7 7.6 - 12.9 [facility] LABORATORY NRBC% auto 0.0 % [facility] NRBC Absolute 0.000 0.000 - 0.000 x10(3)/[facility] LABORATORY Blood specimen (specimen) 05/18/2016 5:54 AM EST 05/18/2016 6:00 AM EST Narrative Resulting Agency Comment Spec In Lab Que Amaro MD HEMATOLOGY ORD ERABLES [facility] [place] [address] * (ABNORMAL) Magnesium (05/18/2016 5:54 AM EST) Magnesium 0.68(L) 0.69 - 1.07 mmol/L [facility] Blood specimen (specimen) 05/18/2016 5:54 AM EST 05/18/2016 6:00 AM EST Narrative Resulting Agency Comment Spec In Lab Que Amaro MD CHEMISTRY ROCHELLE JENNINGS Performing Organization Address City/[facility] Co de Phone Number [facility] [place] [address] * Phosphorus (05/18/2016 5:54 AM EST) Phosphorus 2.8 2.5 - 4.5 mg/dL [facility] Blood specimen (specimen) 05/18/2016 5:54 AM EST 05/18/2016 6:00 AM EST Narrative Resulting Agency Comment Spec In Lab Que Amaro MD CHEMISTRY ROCHELLE JENNINGS Performing Organization Address [facility] Co de Phone Number [facility] [place] [address] * Basic Metabolic Panel (non-fasting) (05/18/2016 5:54 AM EST) Glucose 168 65 - 199 mg/dL [facility] Comment:Diabetes: >=200 mg/d L plus symptoms Blood Urea Nitrogen 11 10 - 20 mg/dL [facility] Creatinine 1.15 0.80 - 1.50 mg/dL [facility] Comment: Please note that the pediatric reference intervals supplied above were not validated at [facility]. Results from pediatric patients should be interpreted in conjunction to the patient's age, height and muscle mass. Sodium 139 135 - 145 mmol/L [facility] Potassium 3.5 3.5 - 5.0 mmol/L [facility] [...] the following links into your internet browser. [email or web address] Blood specimen (specimen) 05/18/2016 5:54 AM EST 05/18/2016 6:00 AM EST Narrative Resulting Agency Comment Spec In Lab Que Amaro MD CHEMISTRY ROCHELLE JENNINGS Performing Organization Address [facility] de Phone Number [facility] [place] [address] * Vancomycin, trough (05/17/2016 5:35 AM EST) Pathologist [facility] Vancomycin, Trough 16.2 mg/L [facility] Comment: Therapeutic range for complicated [...] Comment Spec In Lab Que Amaro MD [employer] ROCHELLE JENNINGS Performing Organization Address [facility] [place] [address] * Differential, Automated (05/17/2016 5:35 AM EST) Pathologist [facility] Neutrophil % 64.3 % [facility] Neutrophil Absolute 4.39 1.70 - 6.10 x10(3)/[facility] Lymph % 20.2 % [facility] Lymphocytes Abs 1.4 0.9 - 3.2 x10(3)/[facility] LAB[facility]AT[facility] Monocyte % 8.3 % [facility] Monocyte Abs 0.6 0.3 - 0.9 x10(3)/[facility]AT[facility] Eos % 5.7 % [facility] Eosinophils Abs 0.4 0.0 - 0.4 x10(3)/[facility] Basophil % 1.2 % [facility] Baso Absolute 0.1 0.0 - 0.1 x10(3)/[facility] Immature Gran % 0.30 % [facility] Comment: Immature granulocytes(IG's)percentage and absolute count will include metamyelocytes, myelocytes, and promyelocytes. Blood smears from CBCs yielding IG's will be scanned manually for concordance. If this scan disagrees with the automated IG or if promyelocytes are noted, a manual differential will be performed. Immature Gran Absolute 0.02 0.00 - 0.04 x10(3)/[facility] LAB[facility]ATORY Blood specimen (specimen) 05/17/2016 5:35 AM EST 05/17/2016 5:42 AM EST Narrative Resulting Agency Comment Spec In Lab Que Amaro MD [place] [address] * (ABNORMAL) Hemogram (05/17/2016 5:35 AM EST) [facility] [address] White Blood Cell 6.8 4.0 - 9.5 x10(3)/[facility] LABORATORY Red Blood Cell 4.38(L) 4.58 - 5.54 x10(6)/[facility] LABORATORY Hemoglobin 14.2 13.7 - 16.5 gm/dL [facility] Hematocrit 39.4(L) 40.5 - 48.5 % [facility] Mean Cell Volume 90.0 82.9 - 93.1 fL [facility] Mean Cell Hemoglobin 32.4(H) 27.5 - 32.1 pg [facility] Mean Cell Hemoglobin Concentration 36.0(H) 32.0 - 35.7 gm/dL [facility] Platelet 213 145 - 357 x10(3)/[facility] LABORATORY RDW Standard Deviation 40.2 36.0 - 45.0 [facility] LABORATORY RDW coefficient of variation 12.2 11.4 - 13.8 % [facility] Mean Platelet Volume 8.7 7.6 - 12.9 [facility] LABORATORY NRBC% auto 0.0 % [facility] NRBC Absolute 0.000 0.000 - 0.000 x10(3)/[facility] LABORATORY Blood specimen (specimen) 05/17/2016 5:35 AM EST 05/17/2016 5:42 AM EST Narrative Resulting Agency Comment Spec In Lab Que Amaro MD HEMATOLOGY ORD ERABLES [facility] [place] [address] * Magnesium (05/17/2016 5:35 AM EST) Magnesium 0.73 0.69 - 1.07 mmol/L [facility] Blood specimen (specimen) 05/17/2016 5:35 AM EST 05/17/2016 5:42 AM EST Narrative Resulting Agency Comment Spec In Lab Que Amaro MD CHEMISTRY ROCHELLE JENNINGS Performing Organization Address City/[facility]/ZIP Co de Phone Number [facility] [place] [address] * Phosphorus (05/17/2016 5:35 AM EST) Pathologist [facility] Phosphorus 2.9 2.5 - 4.5 mg/dL [facility] Blood specimen (specimen) 05/17/2016 5:35 AM EST 05/17/2016 5:42 AM EST Narrative Resulting Agency Comment Spec In Lab Que Amaro MD CHEMISTRY ORDBhargav JENNINGS Performing Organization Address [facility] Co de Phone Number [facility] [place] [address] * (ABNORMAL) Basic Metabolic Panel (non-fasting) (05/17/2016 5:35 AM EST) [facility] [address] Glucose 164 65 - 199 mg/dL [facility] Comment:Diabetes: >=200 mg/d L plus symptoms Blood Urea Nitrogen 13 10 - 20 mg/dL [facility] Creatinine 1.23 0.80 - 1.50 mg/dL [facility] Comment: Please note that the pediatric reference intervals supplied above were not validated at [facility]. Results from pediatric patients should be interpreted in conjunction to the patient's age, height and muscle mass. Sodium 141 135 - 145 mmol/L [facility] Potassium 3.5 3.5 - 5.0 mmol/L [facility] Comment: Please note: ??Patients with WBC >100,000 may have falsely elevated Potassium levels. ??For accurate Potassium quantification in these patients send serum separator tube (gold top) for subsequent determinations. ??Contact the Clinical Chemistry Laboratory if there are any questions. Chloride 102 98 - 107 mmol/L [facility] Carbon Dioxide 26 22 - 31 mmol/L [facility] Anion Gap 13 5 - 15 mmol/L [facility] Calcium 8.9 8.5 - 10.5 mg/dL [facility] Est Glomerular Filtration Rate 59(L) >=60 [facility] Comment: This estimated [...] the following links into your internet browser. [email or web address] Blood specimen (specimen) 05/17/2016 5:35 AM EST 05/17/2016 5:42 AM EST Narrative Resulting Agency Comment Spec In Lab Que Amaro MD CHEMISTRY ROCHELLE JENNINGS Performing Organization Address [facility] Co de Phone Number [facility] [place] [address] * Tacrolimus level (05/16/2016 8:50 AM EST) Tacrolimus 5.7 ng/mL [facility] Comment: Trough therapeutic: ??5-15 ng/mL Performed by ultra-performance liquid chromatography tandem mass spectrometry (UPLCMS/MS). Blood specimen (specimen) 05/16/2016 8:50 AM EST 05/16/2016 11:43 AM EST Narrative Resulting Agency Comment Spec In Lab Que Amaro MD CHEMISTRY ORDBhargav CloudTagsLENORE Performing Organization Address [facility]/ZIP Co de Phone Number [facility] [place] [address] * Differential, Automated (05/16/2016 6:24 AM EST) Neutrophil % 68.9 % [facility] Neutrophil Absolute 5.15 1.70 - 6.10 x10(3)/mcL [facility] Lymph % 16.7 % [facility] Lymphocytes Abs 1.2 0.9 - 3.2 x10(3)/[facility] Monocyte % 8.2 % [facility] Monocyte Abs 0.6 0.3 - 0.9 x10(3)/[facility] Eos % 4.5 % [facility] Eosinophils Abs 0.3 0.0 - 0.4 x10(3)/[facility] Basophil % 1.3 % [facility] Baso [...] [facility] Blood specimen (specimen) 05/16/2016 6:24 AM EST 05/16/2016 6:34 AM EST Narrative Resulting Agency Comment Spec In Lab Que Amaro MD HEMATOLOGY ORD ERABLES [facility] [place] [address] * (ABNORMAL) Hemogram (05/16/2016 6:24 AM EST) White Blood Cell 7.5 4.0 - 9.5 x10(3)/mc L [facility] Red Blood Cell 4.52(L) 4.58 - 5.54 x10(6)/mc L [facility] Hemoglobin 14.4 13.7 - 16.5 gm/dL [facility] Hematocrit 41.1 40.5 - 48.5 % [facility] Mean Cell Volume 90.9 82.9 - 93.1 fL [facility] Mean Cell Hemoglobin 31.9 27.5 - 32.1 pg [facility] Mean Cell Hemoglobin Concentration 35.0 32.0 - 35.7 gm/dL [facility] Platelet 215 145 - 357 x10(3)/mc L [facility] RDW Standard Deviation 40.2 36.0 - 45.0 fL [facility] RDW coefficient of variation 12.0 11.4 - 13.8 % [facility] Mean Platelet Volume 8.8 7.6 - 12.9 fL [facility] NRBC% auto 0.0 % [facility] NRBC Absolute 0.000 0.000 - 0.000 x10(3)/mc L [facility] Blood specimen (specimen) 05/16/2016 6:24 AM EST 05/16/2016 6:34 AM EST Narrative Resulting Agency Comment Spec In Lab Que Amaro MD HEMATOLOGY ORD ERABLES [facility] [place] [address] * (ABNORMAL) Magnesium (05/16/2016 6:24 AM EST) Magnesium 0.58(L) 0.69 - 1.07 mmol/L [facility] Blood specimen (specimen) 05/16/2016 6:24 AM EST 05/16/2016 6:34 AM EST Narrative Resulting Agency Comment Spec In Lab Que Amaro MD CHEMISTRY ORDE RABLENORE [facility] [place] [address] * Phosphorus (05/16/2016 6:24 AM EST) Phosphorus 2.6 2.5 - 4.5 mg/dL [facility] Blood specimen (specimen) 05/16/2016 6:24 AM EST 05/16/2016 6:34 AM EST Narrative Resulting Agency Comment Spec In Lab Que Amaro MD CHEMISTRY ROCHELLE JENNINGS [facility] [place] [address] * (ABNORMAL) Basic Metabolic Panel (non-fasting) (05/16/2016 6:24 AM EST) Glucose 180 65 - 199 mg/dL [facility] Comment:Diabetes: >=200 mg/d L plus symptoms Blood Urea Nitrogen 11 10 - 20 mg/dL [facility] Creatinine 1.30 0.80 - 1.50 mg/dL [facility] Comment: Please note that the pediatric reference intervals supplied above were not validated at [facility]. Results from pediatric [...] 15 mmol/L [facility] Calcium 9.0 8.5 - 10.5 mg/dL [facility] Est Glomerular Filtration Rate 55(L) >=60 [facility] Comment: This estimated [...] the following links into your internet browser. [email or web address] Blood specimen (specimen) 05/16/2016 6:24 AM EST 05/16/2016 6:34 AM EST Narrative Resulting Agency Comment Spec In Lab Que Amaro MD CHEMISTRY ORDE RABLES Performing Organization Address [facility]/ZIP Co de Phone Number [facility] [place] [address] * Urine culture (05/15/2016 3:04 PM EST) Urine Culture No growth (Less than 100 cfu/ml). [facility] Urine specimen from nephrostomy tube (specimen) 05/15/2016 3:04 PM EST 05/15/2016 4:31 PM EST Narrative Resulting Agency Comment Spec In Lab Que Amaro MD MICROBIOLOGY - GENERAL ORDERABLES Performing Organization Address [facility] Co de Phone Number [facility] [place] [address] * (ABNORMAL) Urinalysis with reflex Culture (05/15/2016 [...] [facility] Blood, Urine Dipstick Small(A) Negative mg/dL [facility] Ketone, Urine Dipstick Negative Negative mg/dL [facility] Nitrite, Urine Dipstick Negative Negative [facility] Leukocytes, Urine Dipstick Small(A) Negative [facility] Appearance, Urine Dipstick Clear Clear [facility] Specific [place] Urine Automated 1.009 1.002 - 1.030 [facility] Color, Urine Dipstick Straw Yellow [facility] RBC, Urine 9(H) 0 - 3 /HPF [facility] WBC, Urine 10(H) 0 - 3 /HPF [facility] Bacteria, Urine Rare(A) None /HPF [facility] Reflex to Culture Yes [facility] Urine specimen from nephrostomy tube (specimen) 05/15/2016 3:04 PM EST 05/15/2016 3:44 PM EST Narrative Resulting Agency Comment Spec In Lab Que Amaro MD URINE ORDERABL ES Performing Organization Address [facility] de Phone Number [facility] [place] [address] * Vancomycin, trough (05/15/2016 5:50 AM EST) Vancomycin, Trough 8.9 mg/L [facility] Comment: Therapeutic range for [...] MD CHEMISTRY ORDE RABLES Performing Organization Address [facility]/ZIP Co de Phone Number [facility] [place] [address] * (ABNORMAL) Differential, Automated (05/15/2016 3:15 AM EST) Pathologist [facility] Neutrophil % 72.9 % [facility] Neutrophil Absolute 6.64(H) 1.70 - 6.10 x10(3)/[facility] Lymph % 14.1 % [facility] Lymphocytes Abs 1.3 0.9 - 3.2 x10(3)/[facility] Monocyte % 7.9 % [facility] Monocyte Abs 0.7 0.3 - 0.9 x10(3)/[facility] Eos % 3.7 % [facility] Eosinophils Abs 0.3 0.0 - 0.4 x10(3)/[facility] Basophil % 1.1 % [facility] Baso Absolute 0.1 0.0 - 0.1 x10(3)/[facility] Immature Gran % 0.30 % [facility] Comment: Immature granulocytes(IG's)percentage and absolute count will include metamyelocytes, myelocytes, and promyelocytes. Blood smears from CBCs yielding IG's will be scanned manually for concordance. If this scan disagrees with the automated IG or if promyelocytes are noted, a manual differential will be performed. Immature Gran Absolute 0.03 0.00 - 0.04 x10(3)/[facility] Blood specimen (specimen) 05/15/2016 3:15 AM EST 05/15/2016 3:23 AM EST Narrative Resulting Agency Comment Spec In Lab Que Amaro MD HEMATOLOGY ORD ERABLES [facility] [place] [address] * Hemogram (05/15/2016 3:15 AM EST) Pathologist [facility] White Blood Cell 9.1 4.0 - 9.5 x10(3)/[facility] Red Blood Cell 4.58 4.58 - 5.54 x10(6)/[facility] Hemoglobin 14.7 13.7 - 16.5 gm/dL [facility] Hematocrit 41.3 40.5 - 48.5 % [facility] Mean Cell Volume 90.2 82.9 - 93.1 [facility] Mean Cell Hemoglobin 32.1 27.5 - 32.1 pg [facility] Mean Cell Hemoglobin Concentration 35.6 32.0 - 35.7 gm/dL [facility] Platelet 209 145 - 357 x10(3)/[facility] RDW Standard Deviation 40.0 36.0 - 45.0 [facility] RDW coefficient of variation 12.2 11.4 - 13.8 % [facility] Mean Platelet Volume 8.7 7.6 - 12.9 [facility] NRBC% auto 0.0 % [facility] NRBC Absolute 0.000 0.000 - 0.000 x10(3)/[facility] Blood specimen (specimen) 05/15/2016 3:15 AM EST 05/15/2016 3:23 AM EST Narrative Resulting Agency Comment Spec In Lab Que Amaro MD HEMATOLOGY ORD AMANDABLES Performing Organization Address City/[facility]/ZIP Co de Phone Number [facility] [place] [address] * (ABNORMAL) Magnesium (05/15/2016 3:15 AM EST) Magnesium 0.68(L) 0.69 - 1.07 mmol/L [facility] Blood specimen (specimen) 05/15/2016 3:15 AM EST 05/15/2016 3:23 AM EST Narrative Resulting Agency Comment Spec In Lab Que Amaro MD CHEMISTRY ORDBhargav JENNINGS [facility] [place] [address] * Phosphorus (05/15/2016 3:15 AM EST) Phosphorus 2.9 2.5 - 4.5 mg/dL [facility] Blood specimen (specimen) 05/15/2016 3:15 AM EST 05/15/2016 3:23 AM EST Narrative Resulting Agency Comment Spec In Lab Que Amaro MD CHEMISTRY ROCHELLE JENNINGS [facility] [place] [address] * (ABNORMAL) Basic Metabolic Panel (non-fasting) (05/15/2016 3:15 AM EST) Glucose 162 65 - 199 mg/dL [facility] Comment:Diabetes: >=200 mg/d L plus symptoms Blood Urea Nitrogen 9(L) 10 - 20 mg/dL [facility] Creatinine 1.23 0.80 - 1.50 mg/dL [facility] Comment: Please note that the pediatric reference intervals supplied above were not validated at [facility]. Results from pediatric patients should be interpreted in conjunction to the patient's age, height and muscle mass. Sodium 140 135 - 145 mmol/L [facility] [...] 15 mmol/L [facility] Calcium 9.0 8.5 - 10.5 mg/dL [facility] Est Glomerular Filtration Rate 59(L) >=60 [facility] Comment: This estimated [...] the following links into your internet browser. [email or web address] Blood specimen (specimen) 05/15/2016 3:15 AM EST 05/15/2016 3:23 AM EST Narrative Resulting Agency Comment Spec In Lab Que Amaro MD [facility] [place] [id number] * XR Chest PA or AP 1 [...] Differential, Automated (05/14/2016 6:45 AM EST) Pathologist [facility] Neutrophil % 77.5 % [facility] Neutrophil Absolute 7.24(H) 1.70 - 6.10 x10(3)/ L [facility] Lymph % 11.1 % [facility] Lymphocytes Abs 1.0 0.9 - 3.2 x10(3)/[facility] Monocyte % 8.4 % [facility] Monocyte Abs 0.8 0.3 - 0.9 x10(3)/[facility] Eos % 1.7 % [facility] Eosinophils Abs 0.2 0.0 - 0.4 x10(3)/[facility] Basophil % 0.9 % [facility] Baso Absolute 0.1 0.0 - 0.1 x10(3)/[facility] Immature Gran % 0.40 [...] [facility] Blood specimen (specimen) 05/14/2016 6:45 AM EST 05/14/2016 7:06 AM EST Narrative Resulting Agency Comment Spec In Lab Que Amaro MD HEMATOLOGY ORD ERABLES [facility] [place] [address] * (ABNORMAL) Hemogram (05/14/2016 6:45 AM EST) Pathologist [facility] White Blood Cell 9.4 4.0 - 9.5 x10(3)/ L [facility] Red Blood Cell 4.43(L) 4.58 - 5.54 x10(6)/mc L [facility] Hemoglobin 14.2 13.7 - 16.5 gm/dL [facility] Hematocrit 41.1 40.5 - 48.5 % [facility] Mean Cell Volume 92.8 82.9 - 93.1 fL [facility] Mean Cell Hemoglobin 32.1 27.5 - 32.1 pg [facility] Mean Cell Hemoglobin Concentration 34.5 32.0 - 35.7 gm/dL [facility] Platelet 208 145 - 357 x10(3)/[facility] RDW Standard Deviation 41.6 36.0 - 45.0 [facility] RDW coefficient of variation 12.2 11.4 - 13.8 % [facility] Mean Platelet Volume 9.0 7.6 - 12.9 [facility] NRBC% auto 0.0 % [facility] NRBC Absolute 0.000 0.000 - 0.000 x10(3)/[facility] Blood specimen (specimen) 05/14/2016 6:45 AM EST 05/14/2016 7:06 AM EST Narrative Resulting Agency Comment Spec In Lab Que Amaro MD HEMATOLOGY ORD ERABLES [facility] [place] [address] * (ABNORMAL) Magnesium (05/14/2016 6:45 AM EST) Magnesium 0.60(L) 0.69 - 1.07 mmol/L [facility] Blood specimen (specimen) 05/14/2016 6:45 AM EST 05/14/2016 7:06 AM EST Narrative Resulting Agency Comment Spec In Lab Que Amaro MD CHEMISTRY ROCHELLE JENNINGS Performing Organization Address [facility]/ZIP Co de Phone Number [facility] [place] [address] * (ABNORMAL) Phosphorus (05/14/2016 6:45 AM EST) Pathologist [facility] Phosphorus 2.1(L) 2.5 - 4.5 mg/dL [facility] Blood specimen (specimen) 05/14/2016 6:45 AM EST 05/14/2016 7:06 AM EST Narrative Resulting Agency Comment Spec In Lab Que Amaro MD CHEMISTRY ROCHELLE JENNINGS Performing Organization Address [facility] Co de Phone Number [facility] [place] [address] * (ABNORMAL) Basic Metabolic Panel (non-fasting) (05/14/2016 6:45 AM EST) [facility] [address] Glucose 165 65 - 199 mg/dL [facility] Comment:Diabetes: >=200 mg/d L plus symptoms Blood Urea Nitrogen 12 10 - 20 mg/dL [facility] Creatinine 1.22 0.80 - 1.50 mg/dL [facility] Comment: Please note that the pediatric reference intervals supplied above were not validated at [facility]. Results from pediatric patients should be interpreted in conjunction to the patient's age, height and muscle mass. Sodium 139 135 - 145 mmol/L [facility] [...] [facility]ATORY Est Glomerular Filtration Rate 59(L) >=60 [facility] Comment: This estimated [...] the following links into your internet browser. [email or web address] Blood specimen (specimen) 05/14/2016 6:45 AM EST 05/14/2016 7:06 AM EST Narrative Resulting Agency Comment Spec In Lab Que Amaro MD CHEMISTRY ROCHELLE JENNINGS Performing Organization Address [facility] de Phone Number [facility] [place] [address] * C. Difficile Screen (05/14/2016 2:30 AM EST) C Diff Interp Negative Negative [facility] Comment: C. diff ??Negative [...] Performing Organization Address [facility] Co de Phone Number [facility] [place] [address] documented in this encounter Visit Diagnoses Diagnosis [...] 2100, Until Thu05/20/16 at 2249, PACU Recovery [facility] 05/20/2016 9:50 PM EST 150 mL/hr 150 mL/hr sodium chloride 0.9% infusion 100 mL/hr, Intravenous, CONTINUOUS, Starting on Thu05/21/16 at 0945, Until Thu05/25/16 at 1006 [facility] 05/25/2016 10:01 AM EST 100 mL/hr 100 mL/hr New Bag 05/25/2016 12:26 AM EST 100 mL/hr 100 mL/hr New Bag 05/24/2016 5:01 AM EST 100 mL/hr 100 mL/hr sodium chloride 0.9% infusion 75 mL/hr, Intravenous, CONTINUOUS, Starting on Thu05/26/16 at 1000, Until Thu05/27/16 at 0827 [facility] 05/26/2016 10:24 AM EST 75 mL/hr 75 [...] not met) 0400 (Not Given - Provider: Cmai Leonardo RN - Reason: Patient/family refused)1005 (Given - Provider: Monique Christian RN)1535 (Given - Provider: Monique Christian RN)2146 (Given - Provider: Cami Leonardo, JADEN) 0415 (Given - Provider: Cami Leonardo RN)1132 [...] Mirian Gambino, JADEN)1605 (Given - Provider: Mirian Gambino, JADEN)2036 (Given - Provider: Cami Leonardo RN) 1008 [...] Discontinued, Routine 1031 (Given - Provider: Mirian A Westenfeld, RN) 1015 (Given - Provider: Monique Christian [...] 55bpm, Routine 0840 (Given - Provider: Mirian Gabmino RN)2034 (Given - Provider: Cami Leonardo RN) [...] Routine 0836 (Given - Provider: Mirian Gambino RN)203 (Given - Provider: Cami Leonardo RN) 1018 (Given - Provider: Monique Christian RN)2013 (Given - Provider: Keyana Moy, JADEN) 0838 (Given - Provider: Lorena Oneal, JADEN) [...] JADEN - Comment: prograf level drawn by lab [...] Gambino RN)2034 (Given - Provider: Cami Leonardo, RN) Continuous Medication Order 05/26/2016 05/27/2016 05/28/2016 sodium [...] Leonardo RN)0826 (See Alternative - Provider: Ryan Fuchs, RN)1228 (See Alternative - Provider: Ryan Fuchs [...] Routine documented in this encounter Care Teams Oncology Transplant Network Manager Relationship Specialty Start Date End Date Urbano Denis DO [address] [place] [address] PCP - General 09/03/12 03/17/22 Ruchi Valles RN Nurse Clinic Transplant Surgery 07/30/15 documented as of this encounter
--- OUTSIDE RECORDS SUMMARY | 2024-05-16 17:32 | XMS_ITS | Encounter Summary ---
Author Organization [facility] Address [facility] [place] [address] Care Team Providers Care Mechanical Manufacturing Engineer Name Role Phone Urbano Denis DO Primary Care Provider [phone] Reason for Visit * Auth/Cert Specialty Diagnoses / Procedures Referred By Humberto flor Referred To Contact Diagnoses Dehydration Referral ID Status Reason Start Date Expiration Date Visits Re quested Visits Authorized [id number] 1 1 Encounter Details Date Type Department Care Team (Late st Contact Info) Description 05/13/2016 12:46 PM EST - 05/13/2016 4:28 PM [facility] [place] [phone] Que Amaro MD [facility] [address] [place] [address] Discharge Disposition: Still a Patient Social History [...] EST TH Visit (TeleHealth) Cardiology at [address] [phone] Byron Brown MD [facility] [place] [address] 07/14/2024 10:00 AM EST Hospital Encounter Non-[place] [phone] Arrived documented as of this encounter Procedures [...] costophrenic angle is not included in the [id number]. Right-sided PICC line terminates at the expected location of SVC. Procedure Note Shanon Brady MD - 05/13/2016 EXAMINATION: XR CHEST PA OR AP 1 VIEW CLINICAL HISTORY: Check PICC position TECHNIQUE: AP portable chest COMPARISON: 04/25/2016 FINDINGS: Cardiomediastinal contours are within normal limits. Lungs are clear. There are no pleural effusions. However, the rightcostophrenic angle is not included in the [id number]. Right-sided PICC line terminates at the expected location of SVC. IMPRESSION 1. No radiographic evidence of active cardiopulmonary disease. 2. The right-sided PICC line terminates at the expected location of SVC. Que Amaro MD IMG DX ORDERAB LES documented in this encounter Visit Diagnoses Diagnosis Dehydration documented in this encounter Admitting Diagnoses Diagnosis Dehydration documented in this encounter Care Teams Mechanical Manufacturing Engineer Relationship Specialty Start Date End Date Urbano Denis DO [address] [place] [address] [address] [facility] [address] [place] [address] PCP - General 09/03/12 03/17/22 Ruchi Valles RN Nurse Clinic Transplant Surgery 07/30/15 documented as of this encounter
--- OUTSIDE RECORDS SUMMARY | 2024-05-16 17:32 | XMS_ITS | Encounter Summary ---
Author Organization [facility] [place] [address] Care Team Providers Care Refuge Manager Name Role Phone AdeelUrbano Primary Care Provider [phone] Reason for Visit * Auth/Cert Specialty Diagnoses / Procedures Referred By Humberto flor Referred To Contact Diagnoses Dehydration Referral ID Status Reason Start Date Expiration Date Visits Re quested Visits Authorized [id number] 1 1 Encounter Details Date Type Department Care Team (Late st Contact Info) Description 05/20/2016 3:10 PM EST Anesthesia Event [place] [id number] Memo Alva MD [facility] [place] [address] Miller Seals CRNA [facility] [address] [place] [address] Anesthesia Record Procedure Summary Procedure Name Responsible [...] anesthetic/surgical status and plan, according to the [facility] Provider Handoff Checklist. 1853 Quick Note Nephrostomy [...] PCN and JJ stent 10 fr (Lot #[id number]); 06/09/16; 0809 04/30/16 1103 by Marisela Miller RN 06/09/16 0809 by Therese Carpio RN Hemodialysis AV Access Device - Single Lumen 05/15/16; 1028; fistula; upper arm, left; found on assessment; 05/28/16; 1228 05/15/16 1028 by Sonia Collins RN 05/28/16 1228 by Sintia Whipple RN (RETIRED) Peripheral IV Line - Single Lumen 05/16/16; 1113; cephalic vein (lateral side of arm), right; jzfp-aff-qrfsld catheter system; 20 gauge; intradermal injection, distraction, [...] cephalic vein (lateral side of arm), right; qkio-kmf-ahsmeq catheter system; 16 gauge; MD Amrita; site symptomatic, removed per policy/procedure, site care per policy/procedure, catheter/device intact; 05/23/16; 0657 05/20/16 1522 by Miller Seals, INFORMATION OFFICER 05/23/16 06 by Deandre Johnson RN ETT Mask Ventilation: Ad junct (2); ETT Type: Cuffed, Oral; ETT Size: 7 mm; Mac Blade: 3; Notes: Asleep, Pre-O2, Stylette; Attempts: 2; Laryngoscopy Grade: 1; ETT Placement Verified By: Auscultation, Capnometry, Visual; Secured at Teeth: 23 cm; Inserted by: MD Danielle; Removal Date: 05/20/16; Removal Time: 210405/20/16 152 by Miller Seals, INFORMATION OFFICER 05/20/162104 by Marisela Garzon CRNA Drain/Device Site 05/20/16; 2007; Left ; upper; abdomen; collapsible closed device; Dr. Arredondo; (19 armenian margret drain); 05/25/16; 0905/20/162007 by Hanh Adler, [...] Alva MD - 05/20/2016 11:24 PM EST [facility] Department of Anesthesiology Post-procedure Note Patient: Cody Bolden Procedure Summary Date Anesthesia Start Anesthesia Stop Room / Location 05/20/16 1510 [id number] Procedure Diagnosis Surgeon Responsible Provider @URETERONEOCYSTOSTOMY ANASTOMOSIS OF SINGLE URETER TO BLADDER (Left Ureter); @URETERONEOCYSTOSTOMY ANASTOMOSIS OF SINGLE URETER TO BLADDER (N/A Ureter) (left ureteral stricture) Santosh Arredondo MD; Que Amaro MD Sidash, Stanislav, MD All Anesthesia Providers: Anesthesiologist: Toney Crowe MD; Memo Alva MD INFORMATION OFFICER: Miller Seals CRNA; Marisela Garzon CRNA Last (1hr) Vitals: BP 155/83 (05/20/16 2300) Temp Pulse 62 (05/20/16 2300) Resp 15 (05/20/16 2300) SpO2 92 % (05/20/16 2300) Patient Location: PACU/[facility] Level of Consciousness: Awake and Alert [...] Iohexol 240 mgI/mL, 2 mL Events: None Resident/INFORMATION OFFICER: MINA GIORDANO Second Resident/INFORMATION OFFICER: Fellow: Attending Physician: MAUREEN SMALLS ~~~~~~~~~~~~~~~~~~~~~~~~~~~~~~~~~~~~~~~~~~~~~~~~~~~~~~~~~~~~ * [...] at [facility] OR ??? Pro transplant, prep cadaver renal graft N/A 09/16/2015 @PREPARATION CADAVERIC RENAL ALLOGRAFT performed by Franko Larkin MD at [facility] OR ??? N/A 09/16/2015 ORGAN ACQUISITION RENAL, CADAVERIC performed by Franko Larkin MD at [facility] OR Social History Substance Use Topics ??? [...] products discussed with patient and spouse who. [facility] Staff Note Attending NOTE Brief HPI: [...] EST TH Visit (TeleHealth) Cardiology at [address] [phone] Byron Brown MD [facility] [place] [address] 07/14/2024 10:00 AM EST Hospital Encounter Non-[place] [address] Arrived documented as of this encounter Procedures [...] Iohexol 240 mgI/mL, 2 mL Events: None Resident/INFORMATION OFFICER: MINA GIORDANO Second Resident/INFORMATION OFFICER: Fellow: Attending Physician: MAUREEN SMALLS ~~~~~~~~~~~~~~~~~~~~~~~~~~~~~~~~~~~~~~~~~~~~~~~~~~~~~~~~~~~~ documented [...] EST documented in this encounter Care Teams Refuge Manager Relationship Specialty Start Date End Date Urbano Denis DO [address] [place] [address] PCP - General 09/03/12 03/17/22 Ruchi Valles RN Nurse Clinic Transplant Surgery 07/30/15 documented as of this encounter
--- OUTSIDE RECORDS SUMMARY | 2024-05-16 17:32 | XMS_ITS | Encounter Summary ---
[place] [address] Care Team Providers Care Felt Pad Cutter Name Role Phone Albania Denis DO Primary Care Provider [phone] Reason for Referral * Consultation (Routine) - Closed Specialty Diagnoses / Procedures Referred By Humberto flor Referred To Contact Infectious Diseases Diagnoses Bacteremia due to coagulase-negative Staphylococcus Ramez Serrano DO [facility] [place] [address] [facility] Infectious Dis [address] [place] [phone] Referral ID Status Reason Start Date Expiration Date V isits Requested Visits Authorized [id number] Closed Assume Subset of Care 04/30/2016 04/30/2017 1 1 Reason for Visit * Auth/Cert Specialty Diagnoses / Procedures Referred By Humberto flor Referred To Contact Diagnoses Fever FEVER, S/P KIDNEY TRANSPLANT Referral ID Status Reason Start Date Expiration Date Visits Re quested Visits Authorized [id number] 1 1 Encounter Details Date Type Department Care Team (Late st Contact Info) Description 04/25/2016 4:32 PM EDT - 04/30/2016 5:23 PM EDT Hospital Encounter [address] [place] [address] Tal Eagle MD [facility] [place] [address] Que Amaro MD [facility] [place] [address] Bacteremia due to coagulase-negative Staphylococcus Discharge Disposition: [...] this year that resulted in sepsis requiring bankruptcy legal assistant antibiotic treatment. He completed his course of [...] mg Tab Commonly known as: BACTRIM;SEPTRA ? [address] [address] Fax: ? Member Information? PCP Information?? Name: ?? Ethel Akins? PCP: ALBANIA DENIS, DO?? :?? 1950? Address:?? [address] [place] [address]? PCP PH: [phone] PCP ?? Phone:? Referring Provider Information? Urgency of Referral?? Name:?? RAMEZ SERRANO? Phone:?? [phone]? Routine? Fax: NPI#? [id number]? Ordered and Electronically Signed by: ?? Ramez [...] results to: OPAT Program Infectious Disease Section [facility], [place] [address] FAX: ?? Line care instructions per [facility] OPAT Program protocol. ?? After hours, please contact the Infectious Disease Physician experimental electronics developer at . ?? If this order was signed greater than 72 hours prior to [facility] discharge, please call to confirm the accuracy of this order. ? Referral Information?? Reference# [id number]?? Referral type: Consultation?? # Visits requested: 1?? [...] regarding this request for services, please contact [facility] at [phone] between the hours of 8:00am-5:00pm (Mon - Fri).? Updated Allergies/ADRs: No KnowNo Known Allergiesw-up Recommendations for Providers: Continue daily IV abx until 1 week after surgery. PCP: LANIE DENIS, DOheduled Appointments: Fut Future Appointments Date Time Provider Department Center 05/13/2016 10:00 AM LAB, THREE L Lab 3L [facility] 05/13/2016 11:00 AM Que Amaro MD Leb Trans 2M [facility] 06/03/2016 9:00 AM Tulio Marcelo MD Leb Gastro [facility] 09/15/2016 9:00 AM LAB, THREE L Lab 3L [facility] 09/15/2016 10:00 AM Tal Eagle MD [facility] Trans [facility] tpatient Services/Studies: OPAT: Order / Recommendation for Post Discharge IV Antibiotic Management Referral Priority: Routine Referral Type: Consultation Referral Reason: Assume Subset of Care Number of Visits Requested: 1 Instructions Given to Patient at Discharge:. An After Visit Summary was printed and given to the patient. Patient Instructions [facility] Department of Transplant Surgery Discharge Instructions [...] will be mailed to you. Please call [phone] (clinic number for appointments) to confirm date and time of your appointment if you do not receive your apointment in 1 week. During the night or weekends call the [facility] polygraph operator at [phone] and ask to speak to the surgery resident experimental electronics developer for general surgery. - You are scheduled for surgery on 05/20/2016. You will receive more information regarding this surgery at your follow up visit in 2 weeks. Please note: Your surgeon may not be Client Support Analyst, especially during the night or on weekends, so be ready to describe yourself and your surgery when you call. Future Appointments Date Time Provider Department Center 05/13/2016 10:00 AM LAB, THREE L Lab 3L [facility] 05/13/2016 11:00 AM Que Amaro MD Leb Trans 2M [facility] 06/03/2016 9:00 AM Tulio Marcelo MD Leb [facility] 09/15/2016 9:00 AM LAB, THREE L Lab 3L [facility] 09/15/2016 10:00 AM Tal Eagle MD Leb Trans [facility] General Instructions Office of Care Management/ Tow Motor Mechanic(CM) Infusion Room Referral for Outpatient IV Antibiotic Therapy Dr. Haynes pefsherwin pt for continued home IV antibiotic therapy after discharge from the hospital. Patient requested referral to [facility] Infusion Room Confirmed availability of service with infusion room nurse. Documentation faxed to Infusion Room via Callvine Patient to report to [facility] on 05/01/16 at 2:00 PM. Diabetic Status: Patient is a diabetic. IV access: Type of line: PICC Date placed: 04/29/16 Signed: Marcio Haynes MD documented in this encounter Discharge Instructions * Discharge Instructions* Malina Phelan RN - 05/01/2016 12:15 PM EDT Office of Care Management/ Tow Motor Mechanic(CM) Infusion Room Referral for Outpatient IV Antibiotic Therapy Dr. Haynes pefsherwin pt for continued home IV antibiotic therapy after discharge from the hospital. Patient requested referral to [facility] Infusion Room Confirmed availability of service with infusion room nurse. Documentation faxed to Infusion Room via Callvine Patient to report to [facility] on 05/01/16 at 2:00 PM. Diabetic Status: Patient is a diabetic. IV access: Type of line: PICC Date placed: 04/29/16 * Patient Instructions* Marcio Haynes MD - 04/29/2016 4:27 PM EDT [facility] Department of Transplant Surgery Discharge Instructions [...] will be mailed to you. Please call [phone] (clinic number for appointments) to confirm date and time of your appointment if you do not receive your apointment in 1 week. During the night or weekends call the [facility] polygraph operator at [phone] and ask to speak to the surgery resident experimental electronics developer for general surgery. - You are scheduled for surgery on 05/20/2016. You will receive more information regarding this surgery at your follow up visit in 2 weeks. Please note: Your surgeon may not be Client Support Analyst, especially during the night or on weekends, so be ready to describe yourself and your surgery when you call. Future Appointments Date Time Provider Department Center 05/13/2016 10:00 AM LAB, [facility] L [facility] 05/13/2016 11:00 AM Que Amaro MD Leb Trans 2M [facility] 06/03/2016 9:00 AM Tulio Marcelo MD Leb Gastro [facility] 09/15/2016 9:00 AM LAB, THREE L [facility] 09/15/2016 10:00 AM Tal Eagle MD Leb [...] PM EDT DEVORA Phelan, MSN, RN P: [phone] Service: Transplant Patient medically ready for discharge to home today. to drive home. Patient to receive outpatient antibiotics once per day at [facility] in [place], [place]. Patient has refused the services of a VNA. * Carmenza Shaw RN - 04/30/2016 5:23 PM EDT OPAT Program/Infectious Disease Infusion Room Referral for Outpatient IV Antibiotic Therapy Patient has been referred for outpatient IV ABX to: [facility] [address] [place] [address] IV access: Type of line: PICC Date placed: 04/29/16 Carmenza Morgan. MARK Shaw, ACM-RN, pager [phone] * Brandee Akins RN - 04/30/2016 4:41 [...] 3:12 PM EDT Office of Care Management/ Tow Motor Mechanic(CM) Infusion Room Referral for Outpatient IV Antibiotic Therapy Dr. Ivy broderick pt for continued home IV antibiotic therapy after discharge from the hospital. Patient requested referral to [facility] Infusion Room Confirmed availability of service with infusion room nurse. Documentation faxed to Infusion Room via Callvine Patient to report to [facility] on 05/01/16 at 2:00 PM Diabetic Status: [...] Franko Kim MD Infectious Disease Fellow Pager [phone] ?? I have seen the patient and [...] Joanne Mackey - 04/29/2016 7:38 PM EDT Electrician Sound Encounter Note Patient Name: Ethel Akins : [id number] MR#: [id number] Admit Date: 04/25/2016 4:32 PM Hospital Day [...] of : 1950 AGE 65 y.o. Address: [address] [place] [phone] (home) [phone] (work) Mobile: Telephone Information: Referring Provider: No [...] performed by Que Amaro MD at [facility] OR ??? Pro transplantation of kidney N/A 09/16/2015 @KIDNEY TRANSPLANT, WITHOUT RECIPIENT NEPHRECTOMY performed by Franko Larkin MD at [facility] OR ??? Pro transplant, prep cadaver renal graft N/A 09/16/2015 @PREPARATION CADAVERIC RENAL ALLOGRAFT performed by Franko Larkin MD at [facility] OR ??? N/A 09/16/2015 ORGAN ACQUISITION RENAL, CADAVERIC performed by Franko Larkin MD at [facility] OR Date/Procedure? Med's given/comments 01/08/2015: Tunneled [...] performed by Que Amaro MD at [facility] OR ??? Pro transplantation of kidney N/A 09/16/2015 @KIDNEY TRANSPLANT, WITHOUT RECIPIENT NEPHRECTOMY performed by Franko Larkin MD at [facility] OR ??? Pro transplant, prep cadaver renal graft N/A 09/16/2015 @PREPARATION CADAVERIC RENAL ALLOGRAFT performed by Franko Larkin MD at [facility] OR ??? N/A 09/16/2015 ORGAN ACQUISITION RENAL, CADAVERIC performed by Franko Larkin MD at [facility] OR Medications: No current facility-administered medications [...] Prone Consent: Pending Libia Lake MD Pager #[phone] * Que Amaro MD - 04/29/2016 8:19 [...] 250 BID Marcio Haynes MD Transplant Surgery 5068 I have seen the patient and reviewed [...] 04/28/2016 11:17 AM EDT Office of Care Management/Tow Motor Mechanic(CM) Home IV Antibiotic Therapy Referral Note. Report received from Dr. Amaro that patient will require continued home IV antibiotic therapy after discharge from the hospital. Met with patient/family to discuss vendor and visiting nurse choices for home IV antibiotic therapy. Reviewed Home Infusion Vendors and Home Health Agencies that serve patient???s address and accept patient???s insurance. Home Health Agency: [facility] [employer]. ?? PHONE: [phone] ??FAX: [phone] Referrals sent via edischarge. Home Infusion Vendor: Patient requested referral to [facility]. Referrals sent via edischarge. Diabetic Status: Patient [...] Eagle MD - 04/25/2016 4:48 PM EDT [facility] Department of Transplant Surgery History and Physical [...] this year that resulted in sepsis requiring bankruptcy legal assistant antibiotic treatment. He completed his course of [...] performed by Que Amaro MD at [facility] OR ??? Pro transplantation of kidney N/A 09/16/2015 @KIDNEY TRANSPLANT, WITHOUT RECIPIENT NEPHRECTOMY performed by Franko Larkin MD at [facility] OR ??? Pro transplant, prep cadaver renal graft N/A 09/16/2015 @PREPARATION CADAVERIC RENAL ALLOGRAFT performed by Franko Larkin MD at [facility] OR ??? N/A 09/16/2015 ORGAN ACQUISITION RENAL, CADAVERIC performed by Franko Larkin MD at [facility] OR Home Medications: No current facility-administered [...] Negative mcL Appearance UA Clear Clear Spec Parkman UA 1.024 1.002 - 1.030 Color UA [...] patient was prepped and drapedin supine position. Pan Shaker image obtained. Contrast injection confirmed catheter location. [...] to the planned procedure. Hand Hygiene: The tissue inserter did not perform hand hygiene prior to line insertion. Catheter type: PICC Lot number: [id number] Procedure Technique: Skin was prepped with chlorhexidine. [...] Discharge Planning Comments -- -- CRC involved. [place] [facility] to follow with home antibiotic Activity/Self Care Review of Systems Equipment Currently Used at Home none -- -- Current Health Outpatient/Agency/Support Group Needs homecare agency (specify level of care) -- -- Anticipated Changes Related to Illness none -- -- Living Environment Transportation Available family or friend will provide -- -- Problem: Health Knowledge, Opportunity for Enhanced (Adult, NICU, Wood[place], Obstetrics, Pediatric) Goal: Knowledgeable about Health Subject/Topic [...] Discharge Planning Comments -- -- CRC involved. [place] [facility] to follow with home antibiotic Activity/Self Care Review of Systems Equipment Currently Used at Home none -- -- Current Health Outpatient/Agency/Support Group Needs homecare agency (specify level of care) -- -- Anticipated Changes Related to Illness none -- -- Living Environment Transportation Available family or friend will provide -- -- Problem: Health Knowledge, Opportunity for Enhanced (Adult, NICU, [place], Obstetrics, Pediatric) Goal: Knowledgeable about Health Subject/Topic [...] 04/28/16 1308 Health Knowledge, Opportunity to Enhance (Adult,NICU,Wood[place],Obstetrics,Pediatric) Knowledgeable about Health Subject/Topic making progress toward [...] Health Knowledge, Opportunity for Enhanced (Adult, NICU, [place], Obstetrics, Pediatric) Goal: Knowledgeable about Health Subject/Topic [...] EXTREMITY performed by Que Amaro MD at [facility] OR ??? Pro transplantation of kidney N/A 09/16/2015 @KIDNEY TRANSPLANT, WITHOUT RECIPIENT NEPHRECTOMY performed by Franko Larkin MD at [facility] OR ??? Pro transplant, prep cadaver renal graft N/A 09/16/2015 @PREPARATION CADAVERIC RENAL ALLOGRAFT performed by Franko Larkin MD at [facility] OR ??? N/A 09/16/2015 ORGAN ACQUISITION RENAL, CADAVERIC performed by Franko Larkin MD at [facility] OR Social History: Social History Social [...] to Admission: Independent Home Environment: Lives in [place], [place] with his Mara. Social & Family Supports/Community Resources: Patient has good support system with and family. Behavioral Health History: None on file Substance Use/Abuse: None on file Other Pertinent/Service Specific Information: None Health/Prescription Coverage: Primary Insurance: Medicare A&B Secondary Insurance: BC/BS Prescription Coverage: Yes [facility] in [place], [place] Other: None Primary Care Provider: Dr. Albania Denis [phone] Patient/Caregiver Goals of Treatment: To return home [...] of care planning. Malina Phelan RN Pager: [phone] * Plan of Care - Polina Delgado [...] PLAN MOVING FORWARD: Potential PICC placement for bankruptcy legal assistant abx at home - return at later [...] Health Knowledge, Opportunity for Enhanced (Adult, NICU, [place], Obstetrics, Pediatric) Goal: Knowledgeable about Health Subject/Topic Patient will demonstrate the desired outcomes. Outcome: Ongoing (Interventions Implemented as Appropriate) 04/27/16 1311 Health Knowledge, Opportunity to Enhance (Adult,NICU,Wood[place],Obstetrics,Pediatric) Knowledgeable about Health Subject/Topic making progress toward [...] Goal: Individualization and Mutuality 04/25/16 1819 04/26/16 0602 Individualization Patient Specific Preferences -- call me [...] Health Knowledge, Opportunity for Enhanced (Adult, NICU, [place], Obstetrics, Pediatric) Goal: Knowledgeable about Health Subject/Topic [...] performed by Que Amaro MD at [facility] OR ??? Pro transplantation of kidney N/A 09/16/2015 @KIDNEY TRANSPLANT, WITHOUT RECIPIENT NEPHRECTOMY performed by Franko Larkin MD at [facility] OR ??? Pro transplant, prep cadaver renal graft N/A 09/16/2015 @PREPARATION CADAVERIC RENAL ALLOGRAFT performed by Franko Larkin MD at [facility] OR ??? N/A 09/16/2015 ORGAN ACQUISITION RENAL, CADAVERIC performed by Franko Larkin MD at [facility] OR Prior To Admission Medications: Prescriptions [...] Do not hesitate to page us at [phone] with any further questions or concerns. Franko Kim MD Infectious Disease Fellow Pager [phone] Attending Addendum: I have seen and examined [...] recurrence. * Consult Note - Eleanor Bird, [facility] - 04/27/2016 7:10 AM EDT Clinical Pharmacist Note-Maci Ethel Akins [phone] Ethel Akins is a 65 y.o. [...] have. Alternately, during off-hours you may call [phone] to contact a pharmacist. ELEANOR BIRD [facility] Ext [phone] * Downtime Event Note - Nathen Horton [...] Needs Assessment 04/25/16 1819 04/25/16 1900 04/26/16 6305 Discharge Needs Assessment Concerns to be Addressed [...] Health Knowledge, Opportunity for Enhanced (Adult, NICU, [place], Obstetrics, Pediatric) Knowledgeable about Health Subject/Topic making progress toward outcome * Plan of Care - Carmelina Roca, JADEN - 04/26/2016 2:26 PM EDT Problem: Health Knowledge, Opportunity for Enhanced (Adult, NICU, , Obstetrics, Pediatric) Goal: Knowledgeable about Health Subject/Topic Patient will demonstrate the desired outcomes. Peripherally Inserted Central Catheter (PICC) Teaching Sheet Peripherally inserted central catheters ([id number]) (PICC) are used when you need IV [...] midline catheter? PICC lines are used for assisted treatments. PICC lines may be used for [...] can be set up via the nurse Tow Motor Mechanic to help you. What are possible complications [...] Efficacy, Safety, Use, and Administration of [employer], [employer] 2006 * Plan of Care - [...] discharge * Consult Note - Ewelina Solorzano [facility] - 04/25/2016 5:56 PM EDT Dosing recommendations: [...] have. Alternately, during off-hours you may call [phone] to contact a pharmacist. documented in this encounter Plan of Treatment Upcoming Encounters Date Type Department Care Team (Late st Contact Info) Description 06/22/2024 11:00 AM EST TH Visit (TeleHealth) Cardiology at [address] [phone] Byron Brown MD [facility] [place] [address] 07/14/2024 10:00 AM EST Hospital Encounter [place] [phone] Arrived Scheduled Referrals Name Type Priority Associated Diagnoses Orde r Schedule OPAT: Order / Recommendation for Post Discharge IV Antibiotic Management Outpatient Referral Routine Bacteremia due to coagulase-negative Staphylococcus Ordered: 04/30/2016 documented as of this encounter Procedures Procedure Name Priority Date/Time Associated Diagnosis Comments CARDIAC ENZYMES ([facility]) STAT 04/30/2016 2:00 PM EDT IR ALL [...] 2:00 PM EDT) Troponin-T <0.03 <=0.03 ng/mL [facility] Comment: 0.03 ng/mL: Represents the [...] consensus document of the Joint Society of Cardiology/[place] College of Cardiology Committee for the redefinition of myocardial infarction. ??Journal of the [place] College of Cardiology 2000; 36: 959-969] Creatine Kinase 36 0 - 200 unit/L [facility] Blood specimen (specimen) 04/30/2016 2:00 PM EDT 04/30/2016 2:25 PM EDT Narrative Resulting Agency Comment Spec In Lab Que Amaro MD CHEMISTRY ROCHELLE JENNINGS Performing Organization Address City/State/[facility] Co de Phone Number [facility] [place] [address] * IR all procedures (04/30/2016 11:22 AM [...] was prepped and draped in supine position. Pan Shaker image obtained. Contrast injection confirmed catheter location. [...] EDT) BKV Blood Result Not Detected [facility] BKV Blood Interp BK Virus Plasma Result Interpretation Result: BK Virus not detected Specimen type: plasma Assay Range: 2.83-8.83 log copies/mL (6.8x10^2 - 6.8x10^8 copies/mL) Methods: Quantitative real-time polymerase chain reaction (PCR) of viral DNA isolated from plasma was performed using [employer] (formerly, [employer]) BKV analyte-specific reagents and the [employer] Apps[employer] 7500 FAST Real-Time PCR System. In addition, [...] Genomics and Advanced Technology (CGAT) Laboratory at [facility]. It has not been cleared or approved by the FDA. The laboratory is regulated under CLIA as qualified to perform high-complexity testing. This test is used for clinical purposes. It should not be regarded as investigational or for research. [facility] Comment: [VERIFIED DATE]05.21.16 Verified By:Xiomy Gupta (Electronic Signature) Blood specimen (specimen) 04/30/2016 5:12 AM EDT 04/30/2016 10:00 AM EDT Narrative Resulting Agency Comment Spec In Lab Que Amaro MD HEMATOLOGY STEVE LINARES Performing Organization Address City/State/[facility] Co de Phone Number [facility] [place] [address] * Phosphorus (04/30/2016 5:12 AM EDT) Phosphorus 2.5 2.5 - 4.5 mg/dL [facility] Blood specimen (specimen) 04/30/2016 5:12 AM EDT 04/30/2016 5:21 AM EDT Narrative Resulting Agency Comment Spec In Lab Que Amaro MD CHEMISTRY ROCHELLE JENNINGS Performing Organization Address City/[facility]/ZIP Co de Phone Number [facility] [place] [address] * (ABNORMAL) Magnesium (04/30/2016 5:12 AM EDT) [facility] Magnesium 0.59(L) 0.69 - 1.07 mmol/L [facility] Blood specimen (specimen) 04/30/2016 5:12 AM EDT 04/30/2016 5:21 AM EDT Narrative Resulting Agency Comment Spec In Lab Que Amaro MD CHEMISTRY ROCHELLE JENNINGS Performing Organization Address [facility] Co de Phone Number [facility] [place] [address] * Basic Metabolic Panel (non-fasting) (04/30/2016 5:12 AM EDT) [facility] Glucose 163 65 - 199 mg/dL [facility] Comment:Diabetes: >=200 mg/d L plus symptoms Blood Urea Nitrogen 15 10 - 20 mg/dL [facility] Creatinine 1.10 0.80 - 1.50 mg/dL [facility] Comment: Please note that the pediatric reference intervals supplied above were not validated at [facility]. Results from pediatric patients should be interpreted in conjunction to the patient's age, height and muscle mass. Sodium 140 135 - 145 mmol/L [facility] Potassium 3.5 3.5 - 5.0 mmol/L [facility] Comment: Please note: ??Patients with WBC >100,000 may have falsely elevated Potassium levels. ??For accurate Potassium quantification in these patients send serum separator tube (gold top) for subsequent determinations. ??Contact the Clinical Chemistry Laboratory if there are any questions. Chloride 102 98 - 107 mmol/L [facility] Carbon Dioxide 25 22 - 31 mmol/L [facility] Anion Gap 13 5 - 15 mmol/L [facility] Calcium 8.9 8.5 - 10.5 mg/dL [facility] Est Glomerular Filtration Rate >60 >=60 [facility] Comment: This [...] the following links into your internet browser. [email or web address] Blood specimen (specimen) 04/30/2016 5:12 AM EDT 04/30/2016 5:21 AM EDT Narrative Resulting Agency Comment Spec In Lab Que Amaro MD CHEMISTRY ORDE DICK Performing Organization Address City/[facility]/ZIP Co de Phone Number [facility] [place] [address] * Vancomycin, trough (04/29/2016 6:07 PM EDT) Vancomycin, Trough 13.2 mg/L [facility] Comment: Therapeutic [...] Phone Number [facility] [place] [address] * Place PICC Line: Contact Vascular Access Page [phone] Extremity to exclude: DO NOT use LEFT [...] to the planned procedure. Hand Hygiene: The tissue inserter did not perform hand hygiene prior to line insertion. Catheter type: PICC Lot number: [id number] Procedure Technique: Skin was prepped with chlorhexidine. [...] [facility] Blood specimen (specimen) 04/29/2016 3:40 AM EDT 04/29/2016 3:54 AM EDT Narrative Resulting Agency Comment Spec In Lab Que Amaro MD [facility] [place] [address] * (ABNORMAL) Magnesium (04/29/2016 3:40 AM EDT) [facility] Magnesium 0.64(L) 0.69 - 1.07 mmol/L [facility] Blood specimen (specimen) 04/29/2016 3:40 AM EDT 04/29/2016 3:54 AM EDT Narrative Resulting Agency Comment Spec In Lab Que Amaro MD CHEMISTRY ORDBhargav JENNINGS [facility] [place] [address] * Basic Metabolic Panel (non-fasting) (04/29/2016 3:40 AM EDT) [facility] Glucose 168 65 - 199 mg/dL [facility] Comment:Diabetes: >=200 mg/d L plus symptoms Blood Urea Nitrogen 12 10 - 20 mg/dL [facility] Creatinine 1.13 0.80 - 1.50 mg/dL [facility] Comment: Please note that the pediatric reference intervals supplied above were not validated at [facility]. Results from pediatric patients should be interpreted in conjunction to the patient's age, height and muscle mass. Sodium 142 135 - 145 mmol/L [facility] [...] mmol/L [facility] Calcium 9.1 8.5 - 10.5 mg/dL [facility] Est Glomerular Filtration Rate >60 >=60 [facility] Comment: This [...] the following links into your internet browser. [email or web address] Blood specimen (specimen) 04/29/2016 3:40 AM EDT 04/29/2016 3:54 AM EDT Narrative Resulting Agency Comment Spec In Lab Que Amaro MD CHEMISTRY ROCHELLE JENNINGS Performing Organization Address [facility] Co de Phone Number [facility] [place] [address] * Urine culture Nephrostomy Urine (04/28/2016 1:44 PM EDT) Urine Culture No growth (Less than 100 cfu/ml). [facility] Urine specimen from nephrostomy tube (specimen) 04/28/2016 1:44 PM EDT 04/28/2016 3:44 PM EDT Narrative Resulting Agency Comment Spec In Lab Que Amaro MD MICROBIOLOGY - GENERAL ORDERABLES Performing Organization Address [facility] Co de Phone Number [facility] [place] [address] * Blood culture (04/28/2016 7:59 AM EDT) Blood Culture No growth at 5 days. [facility] Blood specimen (specimen) 04/28/2016 7:59 AM EDT 04/28/2016 8:20 AM EDT Comment:R AC Narrative Resulting Agency Comment Spec In Lab Tal Eagle MD MICROBIOLOGY - BL OOD ORDERABLES Performing Organization Address [facility]/ZIP Co de Phone Number [facility] [place] [address] * Tacrolimus level (04/28/2016 7:59 AM EDT) Tacrolimus 7.1 ng/mL [facility] Comment: Trough therapeutic: ??5-15 ng/mL Performed by ultra-performance liquid chromatography tandem mass spectrometry (UPLCMS/MS). Blood specimen (specimen) 04/28/2016 7:59 AM EDT 04/28/2016 11:12 AM EDT Narrative Resulting Agency Comment Spec In Lab Tal Eagle MD CHEMISTRY ORDERAB LES Performing Organization Address [facility] Co de Phone Number [facility] [place] [address] * Differential, Automated (04/28/2016 6:06 AM EDT) Pathologist [facility] Neutrophil % 66.0 % [facility] Neutrophil Absolute 4.48 1.70 - 6.10 x10(3)/[facility] LABORATORY Lymph % 22.5 % [facility] Lymphocytes Abs 1.5 0.9 - 3.2 x10(3)/[facility] Monocyte % 7.9 % [facility] Monocyte Abs 0.5 0.3 - 0.9 x10(3)/[facility] Eos % 2.6 % [facility] Eosinophils Abs 0.2 0.0 - 0.4 x10(3)/[facility] Basophil % 0.7 % [facility] Baso Absolute 0.0 0.0 - 0.1 x10(3)/[facility] LABORATORY Immature Gran % 0.30 % [facility] Comment: Immature granulocytes(IG's)percentage and absolute count will include metamyelocytes, myelocytes, and promyelocytes. Blood smears from CBCs yielding IG's will be scanned manually for concordance. If this scan disagrees with the automated IG or if promyelocytes are noted, a manual differential will be performed. Immature Gran Absolute 0.02 0.00 - 0.04 x10(3)/[facility] Blood specimen (specimen) 04/28/2016 6:06 AM EDT 04/28/2016 6:18 AM EDT Narrative Resulting Agency Comment Spec In Lab Tal Eagle MD HEMATOLOGY ORDERA BLES [facility] [place] [address] * (ABNORMAL) Hemogram (04/28/2016 6:06 AM EDT) White Blood Cell 6.8 4.0 - 9.5 x10(3)/[facility] LAB[facility]ATORY Red Blood Cell 4.66 4.58 - 5.54 x10(6)/[facility]ORY Hemoglobin 15.0 13.7 - 16.5 gm/dL [facility] Hematocrit 43.5 40.5 - 48.5 % [facility] Mean Cell Volume 93.3(H) 82.9 - 93.1 fL [facility] Mean Cell Hemoglobin 32.2(H) 27.5 - 32.1 pg [facility] Mean Cell Hemoglobin Concentration 34.5 32.0 - 35.7 gm/dL [facility] Platelet 162 145 - 357 x10(3)/[facility] LABORATORY RDW Standard Deviation 43.8 36.0 - 45.0 [facility]ORY RDW coefficient of variation 12.7 11.4 - 13.8 % [facility] Mean Platelet Volume 9.7 7.6 - 12.9 [facility] NRBC% auto 0.0 % [facility] NRBC Absolute 0.000 0.000 - 0.000 x10(3)/[facility] Blood specimen (specimen) 04/28/2016 6:06 AM EDT 04/28/2016 6:18 AM EDT Narrative Resulting Agency Comment Spec In Lab Tal Eagle MD HEMATOLOGY ORDERA BLES Performing Organization Address [facility] de Phone Number [facility] [place] [address] * Blood culture (04/28/2016 6:06 AM EDT) Blood Culture No growth at 5 days. [facility] Blood specimen (specimen) 04/28/2016 6:06 AM EDT 04/28/2016 7:42 AM EDT Comment:R WRIST Narrative Resulting Agency Comment Spec In Lab Que Amaro MD MICROBIOLOGY - BLOOD ORDERABLES Performing Organization Address [facility] Phone Number [facility] [place] [address] * Phosphorus (04/28/2016 6:06 AM EDT) Phosphorus 2.5 2.5 - 4.5 mg/dL [facility] Blood specimen (specimen) 04/28/2016 6:06 AM EDT 04/28/2016 6:22 AM EDT Narrative Resulting Agency Comment Spec In Lab Tal Eagle MD CHEMISTRY ORDERAB LES Performing Organization Address [facility] Phone Number [facility] [place] [address] * (ABNORMAL) Magnesium (04/28/2016 6:06 AM EDT) Magnesium 0.67(L) 0.69 - 1.07 mmol/L [facility] Blood specimen (specimen) 04/28/2016 6:06 AM EDT 04/28/2016 6:22 AM EDT Narrative Resulting Agency Comment Spec In Lab Tal Eagle MD CHEMISTRY ORDERAB LES Performing Organization Address [facility]/ZIP Co de Phone Number [facility] [place] [address] * (ABNORMAL) BMP w/fasting Glucose (04/28/2016 6:06 AM EDT) [facility] Glucose Fasting 150(H) 65 - 99 mg/dL [facility] [...] of Diabetes Mellitus, Position Statement from the [employer]. ??Diabetes Care, Volume 33, Supplement 1, Jul 2009 Blood Urea Nitrogen 10 10 - 20 mg/dL [facility] Creatinine 1.10 0.80 - 1.50 mg/dL [facility] Comment: Please note that the pediatric reference intervals supplied above were not validated at [facility]. Results from pediatric patients should be interpreted in conjunction to the patient's age, height and muscle mass. Sodium 142 135 - 145 mmol/L [facility] Potassium 3.5 3.5 - 5.0 mmol/L [facility] Comment: Please note: ??Patients with WBC >100,000 may have falsely elevated Potassium levels. ??For accurate Potassium quantification in these patients send serum separator tube (gold top) for subsequent determinations. ??Contact the Clinical Chemistry Laboratory if there are any questions. Chloride 104 98 - 107 mmol/L [facility] Carbon Dioxide 25 22 - 31 mmol/L [facility] Anion Gap 13 5 - 15 mmol/L [facility] Calcium 9.1 8.5 - 10.5 mg/dL [facility] Est Glomerular Filtration Rate >60 >=60 [facility] Comment: This [...] the following links into your internet browser. [email or web address] Blood specimen (specimen) 04/28/2016 6:06 AM EDT 04/28/2016 6:22 AM EDT Narrative Resulting Agency Comment Spec In Lab Tal Eagle MD CHEMISTRY ORDERAB LES [facility] [place] [address] * BK Quant Urine Result (04/27/2016 4:26 PM EDT) BKV Urine Result Positive [facility] BKV Urine [...] DNA isolated from urine was performed using [employer] BKV (ASR) reagents and the Applied Biosystems 7500 FAST Real-Time PCR System. In addition, the PCR product sequence is confirmed using physical properties (melting curve analysis). This test was developed and its performance determined by the [facility] Molecular Pathology Laboratory. It has not been cleared or approved by the U.S. Food and Drug Administration. This test is used for clinical purposes and should not be considered investigational or for research purposes. The Molecular Pathology Laboratory is certified by the Clinical Laboratory Improvement Act of 1988 and as such is allowed to perform high complexity clinical testing. [facility] Comment: [VERIFIED DATE]05.01.16 Verified By:Jimmy Gleason (Electronic Signature) Urine specimen (specimen) 04/27/2016 4:26 PM EDT 04/28/2016 10:43 AM EDT Narrative Resulting Agency Comment Spec In Lab Que Amaro MD HEMATOLOGY ORD ERABLES Performing Organization Address City/[facility]/ZIP Co de Phone Number [facility] [address] * Blood culture (04/27/2016 11:32 AM EDT) Blood Culture No growth at 5 days. [facility] Blood specimen (specimen) STRUCTURE OF RIGHT HAND / Unknown 04/27/2016 11:32 AM EDT 04/27/2016 12:17 PM EDT Narrative Resulting Agency Comment Spec In Lab Que Amaro MD MICROBIOLOGY - BLOOD ORDERABLES Performing Organization Address [facility] Co de Phone Number [facility] [place] [address] * (ABNORMAL) Urinalysis with reflex Culture (04/27/2016 11:15 AM EDT) Glucose, Urine Dipstick Negative Negative mg/dL [facility] Protein, Urine Dipstick Negative Negative mg/dL [facility] Blood, Urine Dipstick Moderate(A) Negative mg/dL [facility] Ketone, Urine Dipstick Negative Negative mg/dL [facility] Nitrite, Urine Dipstick Negative Negative [facility] Leukocytes, Urine Dipstick Negative Negative [facility] Appearance, Urine Dipstick Clear Clear [facility] Specific [place] Urine Automated 1.008 1.002 - 1.030 [facility] Color, Urine Dipstick Straw Yellow [facility] RBC, Urine 68(H) 0 - 3 /HPF [facility] WBC, Urine 4(H) 0 - 3 /HPF [facility] Bacteria, Urine Rare(A) None /HPF [facility] Reflex to Culture No [facility] Urine specimen from nephrostomy tube (specimen) 04/27/2016 11:15 AM EDT 04/27/2016 12:07 PM EDT Narrative Resulting Agency Comment Spec In Lab Que Amaro MD URINE ORDERABL ES Performing Organization Address City/[facility]/ZIP Co de Phone Number [facility] [place] [address] * Scan, Peripheral Blood (04/27/2016 5:36 AM EDT) Plat estimate Normal [facility] RBC Morphology Normal [facility] Blood specimen (specimen) 04/27/2016 5:36 AM EDT 04/27/2016 5:52 AM EDT Narrative Resulting Agency Comment Spec In Lab Tal Eagle MD HEMATOLOGY ORDERA BLES Performing Organization Address City/[facility]/ZIP Co de Phone Number [facility] [address] * Vancomycin, trough (04/27/2016 5:36 AM EDT) Pathologist [facility] Vancomycin, Trough 9.1 mg/L [facility] Comment: Therapeutic [...] ORDERAB LES [facility] [place] [address] * Differential, Automated (04/27/2016 5:36 AM EDT) Neutrophil % 73.6 % [facility] Neutrophil Absolute 5.11 1.70 - 6.10 x10(3)/[facility] LABORATORY Lymph % 15.0 % [facility] Lymphocytes Abs 1.0 0.9 - 3.2 x10(3)/[facility] LABORATORY Monocyte % 9.7 % [facility] Monocyte Abs 0.7 0.3 - 0.9 x10(3)/[facility] LABORAT[facility] Eos % 0.7 % [facility] Eosinophils Abs 0.0 0.0 - 0.4 x10(3)/[facility] Basophil % 0.6 % [facility] Baso Absolute 0.0 0.0 - 0.1 x10(3)/[facility] LABORATORY Immature Gran % [...] Immature Gran Absolute 0.03 0.00 - 0.04 x10(3)/[facility] Blood specimen (specimen) 04/27/2016 5:36 AM EDT 04/27/2016 5:52 AM EDT Narrative Resulting Agency Comment Spec In Lab Tal Eagle MD HEMATOLOGY ORDERA BLES [facility] [place] [address] * (ABNORMAL) Hemogram (04/27/2016 5:36 AM EDT) White Blood Cell 6.9 4.0 - 9.5 x10(3)/mc L [facility] Red Blood Cell 4.57(L) 4.58 - 5.54 x10(6)/mc L [facility] Hemoglobin 14.7 13.7 - 16.5 gm/dL [facility] Hematocrit 42.6 40.5 - 48.5 % [facility] Mean Cell Volume 93.2(H) 82.9 - 93.1 fL [facility] Mean Cell Hemoglobin 32.2(H) 27.5 - 32.1 pg [facility] Mean Cell Hemoglobin Concentration 34.5 32.0 - 35.7 gm/dL [facility] Platelet 146 145 - 357 x10(3)/mc L [facility] RDW Standard Deviation 43.7 36.0 - 45.0 [facility] RDW coefficient of variation 12.8 11.4 - 13.8 % [facility] Mean Platelet Volume 9.1 7.6 - 12.9 fL [facility] NRBC% auto 0.0 % [facility] NRBC Absolute 0.000 0.000 - 0.000 x10(3)/mc L [facility] Blood specimen (specimen) 04/27/2016 5:36 AM EDT 04/27/2016 5:52 AM EDT Narrative Resulting Agency Comment Spec In Lab Tal Eagle MD HEMATOLOGY ORDERA BLES Performing Organization Address [facility] de Phone Number [facility] [address] * (ABNORMAL) Phosphorus (04/27/2016 5:36 AM EDT) Phosphorus 1.7(L) 2.5 - 4.5 mg/dL [facility] Blood specimen (specimen) 04/27/2016 5:36 AM EDT 04/27/2016 5:52 AM EDT Narrative Resulting Agency Comment Spec In Lab Tal Eagle MD CHEMISTRY ORDERAB LES Performing Organization Address [facility] de Phone Number [facility] [place] [address] * (ABNORMAL) Magnesium (04/27/2016 5:36 AM EDT) Magnesium 0.56(L) 0.69 - 1.07 mmol/L [facility] Blood specimen (specimen) 04/27/2016 5:36 AM EDT 04/27/2016 5:52 AM EDT Narrative Resulting Agency Comment Spec In Lab Tal Eagle MD CHEMISTRY ORDERAB LES Performing Organization Address [facility] de Phone Number [facility] [place] [address] * (ABNORMAL) BMP w/fasting Glucose (04/27/2016 5:36 AM EDT) Glucose Fasting 183(H) 65 - 99 mg/dL [facility] [...] of Diabetes Mellitus, Position Statement from the [employer]. ??Diabetes Care, Volume 33, Supplement 1, Jul 2009 Blood Urea Nitrogen 13 10 - 20 mg/dL [facility] [...] Sodium 136 135 - 145 mmol/L [facility] Potassium 3.3(L) 3.5 - 5.0 mmol/L [facility] Comment: Please note: ??Patients with WBC >100,000 may have falsely elevated Potassium levels. ??For accurate Potassium quantification in these patients send serum separator tube (gold top) for subsequent determinations. ??Contact the Clinical Chemistry Laboratory if there are any questions. Chloride 100 98 - 107 mmol/L [facility] Carbon Dioxide 22 22 - 31 mmol/L [facility] Anion Gap 14 5 - 15 mmol/L [facility] Calcium 8.3(L) 8.5 - 10.5 mg/dL [facility] Comment:result rechecked-kb Est Glomerular Filtration Rate 51(L) >=60 [facility] Comment: This [...] the following links into your internet browser. [email or web address] Blood specimen (specimen) 04/27/2016 5:36 AM EDT 04/27/2016 5:52 AM EDT Narrative Resulting Agency Comment Spec In Lab Tal Eagle MD CHEMISTRY ORDERAB LES Performing Organization Address [facility] de Phone Number [facility] [place] [address] * Blood culture (04/26/2016 4:41 PM EDT) Blood Culture No growth at 5 days. [facility] Blood specimen (specimen) 04/26/2016 4:41 PM EDT 04/26/2016 5:04 PM EDT Comment:#2 R A.BRDRAW WHE N DRAWING BMP THIS AFTERNOON Narrative Resulting Agency Comment Spec In Lab Tal Eagle MD MICROBIOLOGY - BL OOD ORDERABLES Performing Organization Address [facility] de Phone Number [facility] [place] [address] * Blood culture (04/26/2016 4:41 PM EDT) Blood Culture No growth at 5 days. [facility] Blood specimen (specimen) 04/26/2016 4:41 PM EDT 04/26/2016 5:03 PM EDT Comment:#1 R AAnnelieseBRAnnelieseBRDRAW WHE N DRAWING BMP THIS AFTERNOON Narrative Resulting Agency Comment Spec In Lab Tal Eagle MD MICROBIOLOGY - BL OOD ORDERABLES Performing Organization Address [facility] de Phone Number [facility] [place] [address] * (ABNORMAL) BMP w/fasting Glucose (04/26/2016 4:41 PM EDT) Glucose Fasting 121(H) 65 - 99 mg/dL [facility] [...] of Diabetes Mellitus, Position Statement from the [employer]. ??Diabetes Care, Volume 33, Supplement 1, Jul 2009 Blood Urea Nitrogen 15 10 - 20 mg/dL [facility] Creatinine 1.51(H) 0.80 - 1.50 mg/dL [facility] [...] Chloride 97(L) 98 - 107 mmol/L [facility] Carbon Dioxide 26 22 - 31 mmol/L [facility] [...] the following links into your internet browser. [email or web address] Blood specimen (specimen) 04/26/2016 4:41 PM EDT 04/26/2016 4:46 PM EDT Narrative Resulting Agency Comment Spec In Lab Tal Eagle MD CHEMISTRY ORDERAB LES Performing Organization Address City/[facility] Co de Phone Number [facility] [place] [address] * Differential, Automated (04/26/2016 6:21 AM EDT) Neutrophil % 81.3 % [facility] Neutrophil Absolute 5.60 1.70 - 6.10 x10(3)/[facility] LABORATORY Lymph % 12.8 % [facility] Lymphocytes Abs 0.9 0.9 - 3.2 x10(3)/[facility] LABORATORY Monocyte % 5.2 % [facility] Monocyte Abs 0.4 0.3 - 0.9 x10(3)/[facility] LABORATORY Eos % 0.0 % [facility] Eosinophils Abs 0.0 0.0 - 0.4 x10(3)/[facility] LABORAT[facility] Basophil % 0.4 % [facility] Baso Absolute 0.0 0.0 - 0.1 x10(3)/[facility] LABORATORY Immature Gran % 0.30 % [facility] Comment: Immature granulocytes(IG's)percentage and absolute count will include metamyelocytes, myelocytes, and promyelocytes. Blood smears from CBCs yielding IG's will be scanned manually for concordance. If this scan disagrees with the automated IG or if promyelocytes are noted, a manual differential will be performed. Immature Gran Absolute 0.02 0.00 - 0.04 x10(3)/[facility] LABORATORY Blood specimen (specimen) 04/26/2016 6:21 AM EDT 04/26/2016 6:32 AM EDT Narrative Resulting Agency Comment Spec In Lab Tal Eagle MD HEMATOLOGY ORDERA BLES [facility] [place] [address] * (ABNORMAL) Hemogram (04/26/2016 6:21 AM EDT) White Blood Cell 6.9 4.0 - 9.5 x10(3)/ L [facility] Red Blood Cell 4.82 4.58 - 5.54 x10(6)/[facility] LAB[facility]ORY Hemoglobin 15.5 13.7 - 16.5 gm/dL [facility] Hematocrit 43.8 40.5 - 48.5 % [facility] Mean Cell Volume 90.9 82.9 - 93.1 fL [facility] Mean Cell Hemoglobin 32.2(H) 27.5 - 32.1 pg [facility] Mean Cell Hemoglobin Concentration 35.4 32.0 - 35.7 gm/dL [facility] Platelet 177 145 - 357 x10(3)/[facility] LABORATORY RDW Standard Deviation 41.2 36.0 - 45.0 [facility] RDW coefficient of variation 12.5 11.4 - 13.8 % [facility] Mean Platelet Volume 9.2 7.6 - 12.9 [facility]ORY NRBC% auto 0.0 % [facility] NRBC Absolute 0.000 0.000 - 0.000 x10(3)/[facility] Blood specimen (specimen) 04/26/2016 6:21 AM EDT 04/26/2016 6:32 AM EDT Narrative Resulting Agency Comment Spec In Lab Tal Eagle MD HEMATOLOGY ORDERA BLES [facility] [place] [address] * (ABNORMAL) Phosphorus (04/26/2016 6:21 AM EDT) Phosphorus 2.1(L) 2.5 - 4.5 mg/dL [facility] Blood specimen (specimen) 04/26/2016 6:21 AM EDT 04/26/2016 6:32 AM EDT Narrative Resulting Agency Comment Spec In Lab Tal Eagle MD CHEMISTRY ORDERAB LES Performing Organization Address [facility] Co de Phone Number [facility] [place] [address] * (ABNORMAL) Magnesium (04/26/2016 6:21 AM EDT) Magnesium 0.45(L) 0.69 - 1.07 mmol/L [facility] Blood specimen (specimen) 04/26/2016 6:21 AM EDT 04/26/2016 6:32 AM EDT Narrative Resulting Agency Comment Spec In Lab Tal Eagle MD CHEMISTRY ORDERAB LES Performing Organization Address [facility] Co de Phone Number [facility] [place] [address] * (ABNORMAL) BMP w/fasting Glucose (04/26/2016 6:21 AM EDT) Glucose Fasting 143(H) 65 - 99 mg/dL [facility] [...] of Diabetes Mellitus, Position Statement from the [employer]. ??Diabetes Care, Volume 33, Supplement 1, Jul 2009 Blood Urea Nitrogen 13 10 - 20 mg/dL [facility] Creatinine 1.30 0.80 - 1.50 mg/dL [facility] Comment: Please note that the pediatric reference intervals supplied above were not validated at [facility]. Results from pediatric patients should be interpreted in conjunction to the patient's age, height and muscle mass. Sodium 136 135 - 145 mmol/L [facility] Potassium 3.3(L) 3.5 - 5.0 mmol/L [facility] [...] mmol/L [facility] Calcium 8.2(L) 8.5 - 10.5 mg/dL [facility] Comment:result rechecked-llu Est Glomerular Filtration Rate 55(L) >=60 [facility] Comment: This [...] the following links into your internet browser. [email or web address] [email or web address] Blood specimen (specimen) 04/26/2016 6:21 AM EDT 04/26/2016 6:32 AM EDT Narrative Resulting Agency Comment Spec In Lab Tal Eagle MD CHEMISTRY ORDERAB LES [facility] [place] [address] * (ABNORMAL) Urine culture Nephrostomy Urine (04/25/2016 10:25 PM EDT) Urine Culture 1,000-9,000 cfu/ml Coagulase Negative Staph, not S. saprophyticus Susceptibility testing not routinely performed for Coagulase Negative Staphylococcus species and other Gram Positive organisms from urine. (A) [facility] Organism Coagulase Negative Staph, not S. saprophyticus(A) [facility] Urine specimen from nephrostomy tube (specimen) 04/25/2016 10:25 PM EDT 04/25/2016 11:03 PM EDT Comment:PLEASE OBTAIN FROM I NDWELLING NEPHROSTOMY TUBE Narrative Resulting Agency Comment Spec In Lab Tal Eagle MD [facility] [place] [address] * XR Chest PA & Lateral (Generic) [...] on 04/26/16 at 0600, Until Discontinued, Routine Given 04/30/2016 [...] for tylenol)0929 (Given - Provider: Ryan Fuchs RN)1802 (Given - Provider: Ryan Fuchs RN) 0812 [...] Thanks, Routine 0804 (Given - Provider: Bernarda Pedroza, JADEN)1403 (Given - Provider: Ethel Flores, JADEN)2039 (Given [...] appropriate choice: ID Aprroval by Franko Kim [id number] (Given - Provider: Brandee Akins RN) DILTiazem [...] an associated drug lab level. Please see [facility] for scheduled level. Warning Vesicant/Irritant Medication , [...] first. documented in this encounter Care Teams Felt Pad Cutter Relationship Specialty Start Date End Date [place] Denis DO [address] [place] [address] PCP - General 09/03/12 03/17/22 Hai STANLEY,Ruchi Nurse Clinic Transplant Surgery 07/30/15 documented as of this encounter
--- OUTSIDE RECORDS SUMMARY | 2024-05-16 17:32 | XMS_ITS | Encounter Summary ---
[facility] [place] [address] Care Team Providers Care Eap Consultant Name Role Phone Urbano Denis DO Primary Care Provider [phone] Reason for Visit * Auth/Cert Specialty Diagnoses / Procedures Referred By Humberto flor Referred To Contact Diagnoses Dehydration Referral ID Status Reason Start Date Expiration Date Visits Re quested Visits Authorized [id number] 1 1 Encounter Details Date Type Department Care Team (Late st Contact Info) Description 05/13/2016 11:00 AM EST Office Visit [place] [address] Que Amaro MD [facility] [address] Kidney replaced by transplant Social History Tobacco [...] NEPHRECTOMY performed by Franko Larkin MD at [facility] MAIN OR ??? Pro transplant, prep cadaver renal graft N/A 09/16/2015 @PREPARATION CADAVERIC RENAL ALLOGRAFT performed by Franko Larkin MD at [facility] MAIN OR ??? N/A 09/16/2015 ORGAN ACQUISITION RENAL, CADAVERIC performed by Franko Larkin MD at [facility] MAIN OR Family History: No [...] EST TH Visit (TeleHealth) Cardiology at [address] [phone] Byron Brown MD [facility] [place] [address] 07/14/2024 10:00 AM EST Hospital Encounter Non-[place] [phone] Arrived documented as of this encounter Procedures [...] Culture Greater than 100,000 cfu/ml Klebsiella pneumoniae(A) [facility] Organism Klebsiella pneumoniae(A) [facility] Urine specimen (specimen) 05/13/2016 [...] Que Amaro MD MICROBIOLOGY - GENERAL ORDERABLES [facility] [place] [address] * (ABNORMAL) Urinalysis with reflex Culture (05/13/2016 [...] [facility] Leukocytes, Urine Dipstick Large(A) Negative [facility] Appearance, Urine Dipstick Hazy(A) Clear [facility] Specific [place] Urine Automated 1.026 1.002 - 1.030 [facility] Color, Urine Dipstick Muna Yellow [facility] RBC, Urine 107(H) 0 - 3 /HPF [facility] WBC, Urine >182(H) 0 - 3 /HPF [facility] WBC Clumps, Urine Occasional(A ) None /HPF [facility] Bacteria, Urine Rare(A) None /HPF [facility] Squamous Epithelial Cells, Urine 1 <=4 /HPF [facility] Renal Epithelial Cells, Urine 1(H) <=0 /HPF [facility] Reflex to Culture Yes [facility] Urine specimen (specimen) 05/13/2016 1:00 PM EST 05/13/2016 1:20 PM EST Narrative Resulting Agency Comment Spec In Lab Que Amaro MD URINE ORDERABL ES Performing Organization Address [facility]/ZIP Co de Phone Number [facility] [place] [place] [address] * Blood culture (05/13/2016 12:32 PM EST) Blood Culture No growth at 5 days. [facility] Blood specimen (specimen) PERIPHERAL BLOOD / Unknown 05/13/2016 12:32 PM EST 05/13/2016 1:00 PM EST Comment:#2 Narrative Resulting Agency Comment Spec In Lab Que Amaro MD MICROBIOLOGY - BLOOD ORDERABLES Performing Organization Address [facility]/ZIP Co de Phone Number [facility] [place] [place] [address] * Blood culture (05/13/2016 12:19 PM EST) Blood Culture No growth at 5 days. [facility] Blood specimen (specimen) PERIPHERALLY INSERTED CENTRAL CATHETER / Unknown 05/13/2016 12:19 PM EST 05/13/2016 1:00 PM EST Comment:#1 Narrative Resulting Agency Comment Spec In Lab Que Amaro MD MICROBIOLOGY - BLOOD ORDERABLES Performing Organization Address City/[facility]/ZIP Co de Phone Number [facility] [place] [address] * Green Tube HOLD (05/13/2016 10:00 AM EST) Pathologist [facility] Green Hold Sample in lab. [facility] Blood specimen (specimen) Venous Draw / Unknown 05/13/2016 10:00 AM EST 05/13/2016 10:07 AM EST Que Amaro MD CHEMISTRY ORDE RABLES Performing Organization Address [facility] Co de Phone Number [facility] [place] [address] * (ABNORMAL) Differential, Automated (05/13/2016 10:00 AM EST) [facility] Neutrophil % 80.4 % [facility] Neutrophil Absolute 9.57(H) 1.70 - 6.10 x10(3)/mc L [facility] Lymph % 11.0 % [facility] Lymphocytes Abs 1.3 0.9 - 3.2 x10(3)/mc L [facility] Monocyte % 6.0 % [facility] Monocyte Abs 0.7 0.3 - 0.9 x10(3)/mc L [facility] Eos % 1.0 % [facility] Eosinophils Abs 0.1 0.0 - 0.4 x10(3)/mc L [facility] Basophil % 0.8 % [facility] Baso Absolute 0.1 0.0 - 0.1 x10(3)/mc L [facility] Immature Gran % 0.80 % [facility] Comment: Immature granulocytes(IG's)percentage and absolute count will include metamyelocytes, myelocytes, and promyelocytes. Blood smears from CBCs yielding IG's will be scanned manually for concordance. If this scan disagrees with the automated IG or if promyelocytes are noted, a manual differential will be performed. Immature Gran Absolute 0.10(H) 0.00 - 0.04 x10(3)/ L [facility] Blood specimen (specimen) 05/13/2016 10:00 AM EST 05/13/2016 10:06 AM EST Narrative Resulting Agency Comment Spec In Lab Que Amaro MD HEMATOLOGY ORD ERABLES [facility] [place] [address] * (ABNORMAL) Hemogram (05/13/2016 10:00 AM EST) White Blood Cell 11.9(H) 4.0 - 9.5 x10(3)/[facility] LABORATORY Red Blood Cell 4.84 4.58 - 5.54 x10(6)/[facility]ORATORY Hemoglobin 15.7 13.7 - 16.5 gm/dL [facility] Hematocrit 44.1 40.5 - 48.5 % [facility] Mean Cell Volume 91.1 82.9 - 93.1 [facility] Mean Cell Hemoglobin 32.4(H) 27.5 - 32.1 pg [facility] Mean Cell Hemoglobin Concentration 35.6 32.0 - 35.7 gm/dL [facility] Platelet 267 145 - 357 x10(3)/ L [facility] RDW Standard Deviation 40.6 36.0 - 45.0 [facility] RDW coefficient of variation 12.2 11.4 - 13.8 % [facility] Mean Platelet Volume 9.0 7.6 - 12.9 [facility] NRBC% auto 0.0 % [facility] NRBC Absolute 0.000 0.000 - 0.000 x10(3)/ L [facility] Blood specimen (specimen) 05/13/2016 10:00 AM EST 05/13/2016 10:06 AM EST Narrative Resulting Agency Comment Spec In Lab Que Amaro MD HEMATOLOGY ORD MILAGROS Performing Organization Address [facility]/ZIP Co de Phone Number [facility] [place] [address] * Uric acid (05/13/2016 10:00 AM EST) Uric Acid 6.7 3.5 - 8.5 mg/dL [facility] Blood specimen (specimen) 05/13/2016 10:00 AM EST 05/13/2016 10:06 AM EST Narrative Resulting Agency Comment Spec In Lab Que Amaro MD CHEMISTRY ROCHELLE JENNINGS Performing Organization Address [facility] Co de Phone Number [facility] [place] [address] * Tacrolimus level (05/13/2016 10:00 AM EST) Tacrolimus 6.9 ng/mL [facility] Comment: Trough therapeutic: ??5-15 ng/mL Performed by ultra-performance liquid chromatography tandem mass spectrometry (UPLCMS/MS). Blood specimen (specimen) 05/13/2016 10:00 AM EST 05/13/2016 11:05 AM EST Narrative Resulting Agency Comment Spec In Lab Que Amaro MD CHEMISTRY ROCHELLE JENNINGS Performing Organization Address [facility] Co de Phone Number [facility] [place] [address] * Reticulocyte Count (05/13/2016 10:00 AM EST) Reticulocyte % 1.7 0.7 - 2.6 % [facility] Retic Abs # 0.080 0.030 - 0.120 x10(6)/mcL [facility] Immature Retic% 9.5 0.0 - 15.6 % [facility] Reticulated Hgb 37.6 31.3 - 40.2 pg [facility] Blood specimen (specimen) 05/13/2016 10:00 AM EST 05/13/2016 10:06 AM EST Narrative Resulting Agency Comment Spec In Lab Que Amaro MD HEMATOLOGY ORD ERABLES Performing Organization Address City/[facility]/ZIP Co de Phone Number [facility] [place] [address] * Phosphorus (05/13/2016 10:00 AM EST) Phosphorus 2.7 2.5 - 4.5 mg/dL [facility] Blood specimen (specimen) 05/13/2016 10:00 AM EST 05/13/2016 10:06 AM EST Narrative Resulting Agency Comment Spec In Lab Que Amaro MD CHEMISTRY ORDTiny JENNINGS Performing Organization Address [facility] Co de Phone Number [facility] [place] [address] * (ABNORMAL) Magnesium (05/13/2016 10:00 AM EST) Magnesium 0.57(L) 0.69 - 1.07 mmol/L [facility] Blood specimen (specimen) 05/13/2016 10:00 AM EST 05/13/2016 10:06 AM EST Narrative Resulting Agency Comment Spec In Lab Que Amaro MD CHEMISTRY ORDTiny JENNINGS Performing Organization Address [facility]/ZIP Co de Phone Number [facility] [place] [address] * (ABNORMAL) Comprehensive metabolic panel (non-fasting) (05/13/2016 10:00 AM EST) Glucose 174 65 - 199 mg/dL [facility] Comment:Diabetes: >=200 mg/d L plus symptoms Blood Urea Nitrogen 15 10 - 20 mg/dL [facility] Creatinine 1.39 0.80 - 1.50 mg/dL [facility] [...] 15 mmol/L [facility] Calcium 9.5 8.5 - 10.5 mg/dL [facility] Protein, Total 7.8 6.1 - 8.0 gm/dL [facility] Albumin 4.0 3.2 - 5.2 gm/dL [facility] Aspartate Aminotransferase 18 0 - 39 unit/L [facility] Alanine Aminotransferase 17 0 - 55 unit/L [facility] Alkaline Phosphatase 63 40 - 120 unit/L [facility] Bilirubin, Total 2.4(H) 0.2 - 1.3 mg/dL [facility] Bilirubin, Direct 0.4(H) 0.0 - 0.3 mg/dL [facility] Est Glomerular Filtration Rate 51(L) >=60 [facility] Comment: This [...] the following links into your internet browser. [email or web address] Blood specimen (specimen) 05/13/2016 10:00 AM EST 05/13/2016 10:06 AM EST Narrative Resulting Agency Comment Spec In Lab Que Amaro MD CHEMISTRY ROCHELLE JENNINGS Performing Organization Address [facility] Co de Phone Number [facility] [place] [address] * Cholesterol, total (05/13/2016 10:00 AM EST) Cholesterol, Total 134 <=199 mg/dL [facility] Comment: Recommendations of the NCEP Adult Treatment Panel for the following risk cutoff thresholds for the [place] population: Desirable: <200 mg/dL Borderline High: 200-239 mg/dL High: > or = 240 mg/dL Blood specimen (specimen) 05/13/2016 10:00 AM EST 05/13/2016 10:06 AM EST Narrative Resulting Agency Comment Spec In Lab Que JENNINGS Performing Organization Address [facility] de Phone Number [facility] [place] [address] documented in this encounter Visit Diagnoses Diagnosis Kidney replaced by transplant documented in this encounter Care Teams Eap Consultant Relationship Specialty Start Date End Date Urbano Denis DO [address] [place] [address] PCP - General 09/03/12 03/17/22 Ruchi Valles RN Nurse Clinic Transplant Surgery 07/30/15 documented as of this encounter
--- OUTSIDE RECORDS SUMMARY | 2024-05-16 17:32 | XMS_ITS | Encounter Summary ---
Author Organization Formerly [facility] [place] [address] Care Team Providers Care Pipe Cleaner Name Role Phone Urbano Denis DO Primary Care Provider [phone] Reason for Visit * Auth/Cert Specialty Diagnoses / Procedures Referred By Humberto flor Referred To Contact Diagnoses Dehydration Referral ID Status Reason Start Date Expiration Date Visits Re quested Visits Authorized [id number] 1 1 Encounter Details Date Type Department Care Team (Late st Contact Info) Description 05/20/2016 12:43 PM EST - 05/20/2016 6:12 PM EST [place] [id number] Moy Arredondo MD [facility] [place] [address] @URETERONEOCYSTOSTOMY ANASTOMOSIS OF SINGLE URETER TO BLADDER [...] 05/20/2016 Surgeon(s) and Role: Panel 1: * oMy Arredondo MD - Primary * Pako Booth MD - Resident-Fire Extinguisher Repairer Panel 2: * Que Amaro MD - [...] No evidence of viral inclusions. B - [place] left ureter: ? 1. Benign ureter. ? [...] central cross- sections. ??(R2) B - ??Labeled/Fixative: [place] left ureter, fresh. Quantity/Size: Single, 8.2 x [...] AM LAB, THREE L [facility] 06/03/2016 9:00 AM Que Amaro MD Leb Trans 2M [facility] 06/03/2016 10:00 AM URODYNAMIC LAB [facility] 06/03/2016 10:00 AM UROLOGY, NURSE [facility] 06/03/2016 10:40 AM Moy Arredondo MD Le[facility] Uro [facility] 06/25/2016 10:00 AM Franko Kim MD Leb Infec 5C [facility] 09/15/2016 9:00 AM LAB, THREE L Lab 3L [facility] 09/15/2016 10:00 AM Tal Eagle MD Leb Trans 2M [facility] Outpatient Services/Studies: XR Fluoro Cystogram Standing [...] date and time of your appointment.Phone number: [phone] Future Appointments Date Time Provider Department Center 06/03/2016 8:00 AM LAB, THREE L Lab 3L [facility] 06/03/2016 9:00 AM Que Amaro MD Leb [...] the message. You can also reach the community relations coordinator after hours by calling (ask for the community relations coordinator on-call). General Instructions None Provider Contact Information: If you have any questions or concerns during daytime hours, please call the Transplant clinic at [phone]. If you have questions or concerns during the night or weekends, please call [phone] ask to be transferred to the adult daycare coordinator contact center rep. Signed: EPIFANIO TORRE MD 05/28/2016 documented in [...] date and time of your appointment.Phone number: [phone] Future Appointments Date Time Provider Department Center 06/03/2016 8:00 AM LAB, THREE L Lab 3L [facility] 06/03/2016 9:00 AM Que Amaro MD Leb Trans 2M [facility] 06/03/2016 10:00 AM URODYNAMIC LAB Leb Uro [facility] 06/03/2016 10:00 AM UROLOGY, NURSE [facility] 06/03/2016 10:40 AM Moy Arredondo MD Leb Uro [facility] 06/25/2016 10:00 AM Franko Kim MD Leb Infec 5C [facility] 09/15/2016 9:00 AM LAB, THREE L Lab 3L [facility] 09/15/2016 10:00 AM Tal Eagle [...] the message. You can also reach the community relations coordinator after hours by calling (ask for the community relations coordinator on-call). documented in this encounter Medications [...] from bladder to proximal transplant ureter on chcf antibiotics for coag negative staph bacteremia. Keep [...] performed and anastomosed to proximal graft ureter 2-[place] left ureter divided and dissected then ligated [...] Bolden is a 65 y.o. male on chcf IV abx for coag neg staph bacteremia [...] full code Francois Bowie MD Transplant Surgery [phone] Associated attestation - Que Amaro MD - [...] from bladder to proximal transplant ureter on chef antibiotics for coag negative staph bacteremia. Keep [...] performed and anastomosed to proximal graft ureter 2-[place] left ureter divided and dissected then ligated [...] Bolden is a 65 y.o. male on chef IV abx for coag neg staph bacteremia [...] from bladder to proximal transplant ureter on chef antibiotics for coag negative staph bacteremia. Keep [...] performed and anastomosed to proximal graft ureter 2-[place] left ureter divided and dissected then ligated [...] Bolden is a 65 y.o. male on chef IV abx for coag neg staph bacteremia [...] from bladder to proximal transplant ureter on chef antibiotics for coag negative staph bacteremia. PLAN: [...] performed and anastomosed to proximal graft ureter 2-[place] left ureter divided and dissected then ligated [...] Bolden is a 65 y.o. male on chcf IV abx for coag neg staph bacteremia [...] from bladder to proximal transplant ureter on chef antibiotics for coag negative staph bacteremia. PLAN: [...] ureter. Tension free. Short JJ stent placed [place] left ureter divided and dissected then ligated [...] Franko Kim MD Infectious Disease Fellow Pager [phone] Attending Addendum: I have seen and examined the patient, reviewed the data and agree with the note by Dr. Tipton. * Kirby Cody - 05/23/2016 2:32 PM EST Air Pollution Specialist Encounter Note Patient Name: Cody Bolden : [id number] MR#: [id number] Admit Date: 05/13/2016 4:29 PM Hospital Day [...] notes. MARS SCHREIBER RN 05/23/2016 Pager # [phone] I performed the above scribed service and agree with the accuracy of the note. Memo Alva MD * Herlinda Bell RD - 05/23/2016 1:24 PM EST This lead technical writer has noted that patient has [...] of bowel function yet 3 Days Post-Op [facility] 10 05/20 - Intraop findings: 1-Graft ureter completely stuck in pelvis, dissected up until the renal pelvis. Boari flap performed and anastomosed to proximal graft ureter 2-[place] left ureter divided and dissected then ligated [...] Bolden is a 65 y.o. male on chef IV abx for coag neg staph bacteremia [...] from bladder to proximal transplant ureter on chef antibiotics for coag negative staph bacteremia. PLAN: [...] notes. MARS SCHREIBER RN 05/22/2016 Pager # [phone] Ria Schreiber RN, has performed the documentation [...] performed and anastomosed to proximal graft ureter 2-[place] left ureter divided and dissected then ligated [...] Bolden is a 65 y.o. male on chef IV abx for coag neg staph bacteremia [...] from bladder to proximal transplant ureter on chcf antibiotics for coag negative staph bacteremia. PLAN: [...] notes. KITTY STEELE RN 05/21/2016 Pager # [phone] Socorro Steele RN, has performed the documentation for this encounter in the presence of and acting as a scribe for MAURENE SMALLS MD. I performed the above scribed service and agree with the accuracy of the documentation in this encounter. * Francois Bwoie MD - 05/21/2016 9:41 AM EST General [...] performed and anastomosed to proximal graft ureter 2-[place] left ureter divided and dissected then ligated [...] Bolden is a 65 y.o. male on chef IV abx for coag neg staph bacteremia [...] Note Patient: Cody Bolden s/p Surgery: 05/20/2016 [id number] Procedure(s) (LRB): @URETERONEOCYSTOSTOMY ANASTOMOSIS OF SINGLE URETER TO BLADDER (Left) @URETERONEOCYSTOSTOMY ANASTOMOSIS OF SINGLE URETER TO BLADDER (N/A) Surgeon(s) and Role: Panel 1: * Moy Arredondo MD - Primary * Pako Booth MD - Resident-Fire Extinguisher Repairer Panel 2: * Que Amaro MD - [...] Bolden is a 65 y.o. male on chcf IV abx for coag neg staph bacteremia [...] of the kidney. Will send ureter for [id number] to determine whether there is evidence of [...] Bolden is a 65 y.o. male on chef IV abx for coag neg staph bacteremia [...] Bolden is a 65 y.o. male on chef IV abx for coag neg staph bacteremia [...] Bolden is a 65 y.o. male on chef IV abx for coag neg staph bacteremia [...] Patient is on a regular diet. This lead technical writer spoke with patient and his [...] Franko Kim MD Infectious Disease Fellow Pager [phone] Attending Addendum: I have seen and examined [...] Bolden is a 65 y.o. male on chcf IV abx for coag neg staph bacteremia [...] Bolden is a 65 y.o. male on chef IV abx for coag neg staph bacteremia [...] Bell RD - 05/14/2016 1:44 PM EST [facility] Post Transplant Nutrition Follow Up Date: 05/14/2016 Patient: Cody Bolden Transplant Date: 09/16/15 [place] organ UNOS diagnosis: Transplant: Mr. Cody Bolden [...] Value Date CHLPL 134 05/13/2016 Assessment: This lead technical writer saw patient in clinic yesterday. [...] inpatient; hydration status more appropriate. Plan: This lead technical writer provided patient with a booklet Tips for Better Food Intake to offer tips for loss ofappetite and help to lessen diarrhea, as well as ideas for healthy snacks. This lead technical writer will follow patient's labs and [...] Bolden is a 65 y.o. male on chcf IV abx for coag neg staph bacteremia [...] tube Discussed Boari flap, graft ureter to knik ureter anastomosis, ileal ureter with him and [...] a 65 y.o. male who presents to [facility] with fever. History of Present Illness / [...] further clinical details. Kitty Marie MD 05/13/16 6042 * Paul Bain RN - 05/13/2016 5:33 PM EST Pt's leg bag switched to gravity bag for Pt's comfort. Per his request * Paul Bain RN - 05/13/2016 4:[address] Mix at the bed side * Martina Mix MD - 05/13/2016 4:34 PM EST Emergency Department Cody Bolden is a 65 y.o. male who presents to [facility] with from Transplant Surgery Clinic with an [...] (Interventions Implemented as Appropriate) 05/26/16 1519 05/27/16 9142 Coping/Psychosocial Plan Of Care Reviewed With -- [...] Personalized Care? 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 Outcome: Ongoing (Interventions Implemented as Appropriate) 05/27/16 1542 Health Knowledge, Opportunity to Enhance (Adult,NICU,Sellers,Obstetrics,Pediatric) Knowledgeable about Health Subject/Topic making progress toward [...] nursing;patient Problem: Health Knowledge, Opportunity to Enhance (Adult,NICU,Sellers,Obstetrics,Pediatric) Intervention: Enhance Health Knowledge 05/26/16 204 Coping Strategies Supportive Measures active listening utilized Family/Support System Care involvement promoted Goal: Knowledgeable about Health Subject/Topic Patient will demonstrate the desired outcomes by discharge/transition of care. Outcome: Ongoing (Interventions Implemented as Appropriate) 05/26/16 0128 Health Knowledge, Opportunity to Enhance (Adult,NICU,Sellers,Obstetrics,Pediatric) Knowledgeable about Health Subject/Topic making progress toward [...] Outcome: Ongoing (Interventions Implemented as Appropriate) 05/26/16 2928 Coping/Psychosocial Plan Of Care Reviewed With patient [...] OT needs. Precautions: immunosuppression, IV, whaley Pager: [phone] TAMELA MAK OT 05/25/2016 Occupational Therapy Rehabilitation [...] ambulate. Will continue to monitor. @0551: paged contact center rep MD Bonner for pt's elevated BP ( 184/83 @0424/ 180/81@2190). Pt c/o heartburnbut no chest pain. @0618: [...] -- Problem: Health Knowledge, Opportunity to Enhance (Adult,NICU,Sellers,Obstetrics,Pediatric) Goal: Identify Related Risk Factors and Signs [...] use of PCEA. Did not give Metop [id number], due to HR <55. Still unable to [...] further information as needed. Melissa Stone, CINTHIA P.[phone] Goal: Discharge Needs Assessment Outcome: Ongoing (Interventions [...] to Achieve 1 day Gait Training Goal, [place] Level independent Gait Training Goal, Distance to Achieve >150' Gait Training Goal, Outcome goal met Goal: Physical Therapy Goal Stand Alone Therapy Goal Outcome: Outcome (s) achieved Date Met: 05/22/16 05/22/16 0953 Physical Therapy Goal PT Goal, Time to Achieve 1 day PT Goal, [place] Level independent PT Goal, Additional Goal Pt [...] PM EST Patient Name: Cody Bolden : [id number] MR#: [id number] ?? Case Date: 05/20/2016 ?? Surgeon: Surgeon(s) and Role: Panel 1: * Moy Arredondo MD - Primary * Pako Booth MD - Resident-Fire Extinguisher Repairer ?? Panel 2: * Que Amaro MD - Primary ?? Preoperative diagnosis: Transplanted ureter stricture ?? Postoperative diagnosis: Same ?? Procedure(s): Boari flap from bladder to proximal transplant ureter ? Anesthesia: Epidural, General ?? Findings: ?? 1-Graft ureter completely stuck in pelvis, dissected up until the renal pelvis. Boari flap performed and anastomosed to proximal graft ureter 2-[place] left ureter divided and dissected then ligated [...] anastomosis between the graft ureter and the knik ureter. The patient was then brought into [...] the bladder until we got to the knik ureter, which was divided as it was [...] note, prior to closing the anastomosis, a 6-Romanian double-J stent with 12 cm of length [...] ureter. Tension free. Short JJ stent placed [place] left ureter divided and dissected then ligated after observing it throughout the procedure without urine production MOY ARREDONDO MD 05/22/2016 * Brief Op Note - Pako Booth - 05/20/2016 9:09 PM EST Brief Operative Note Patient Name: Cody Bolden : [id number] MR#: [id number] Case Date: 05/20/2016 Surgeon: Surgeon(s) and Role: Panel 1: * Moy Arredondo MD - Primary * Pako Booth MD - Resident-Fire Extinguisher Repairer Panel 2: * Que Amaro MD - Primary Preoperative diagnosis: Transplanted ureter stricture Postoperative diagnosis: Same Procedure(s): Boari flap from bladder to proximal transplant ureter Anesthesia: Epidural, General Findings: 1-Graft ureter completely stuck in pelvis, dissected up until the renal pelvis. Boari flap performed and anastomosed to proximal graft ureter 2-[place] left ureter divided and dissected then ligated [...] PM EST Clinical Pharmacist Note-Vancomycin Cody Bolden [id number] Cody Bolden is a 65 y.o. [...] have. Alternately, during off-hours you may call [phone] to contact a pharmacist. [facility] Ext [phone] * Consult Note - Guy Almanza RN [...] of infiltration/extravasation Name of MD contacted Paged [phone] pager at [phone] 05/17 Name of RN contacted Katharine RN 05/17 at 0900 Name of Pharmacist if consulted N/A Name of Plastics MD ( if consulted) NA (Mandatory photo for infiltrations/ extravasations scoring a stage 2 or greater, but recommended for stage 1)( include measuring tape and identifier in the photo) FLYING SHEAR OPERATOR CARING FOR THIS PATIENT WILL CONTINUE TO [...] nursing;physician;patient Problem: Health Knowledge, Opportunity to Enhance (Adult,NICU,Sellers,Obstetrics,Pediatric) Goal: Identify Related Risk Factors and Signs and Symptoms Related risk factors and signs and symptoms are identified upon initiation of Human Response Clinical Practice Guideline (CPG) Outcome: Ongoing (Interventions Implemented as Appropriate) 05/16/16 0412 Health Knowledge, Opportunity to Enhance Health Knowledge, Opportunity for Enhanced: Related Risk Factors reinforcement inadequate Signs and Symptoms (Health Knowledge Enhance) knowledge/skill deficiency * Plan of Care - Snoia Collins RN - 05/15/2016 4:38 PM EST [...] EST Problem: Health Knowledge, Opportunity to Enhance (Adult,NICU,Sellers,Obstetrics,Pediatric) Goal: Knowledgeable about Health Subject/Topic Patient will [...] EXTREMITY performed by Que Amaro MD at [facility] MAIN OR ??? Pro transplantation of kidney N/A 09/16/2015 @KIDNEY TRANSPLANT, WITHOUT RECIPIENT NEPHRECTOMY performed by Franko Larkin MD at [facility] MAIN OR ??? Pro transplant, prep cadaver renal graft N/A 09/16/2015 @PREPARATION CADAVERIC RENAL ALLOGRAFT performed by Franko Larkin MD at [facility] MAIN OR ??? N/A 09/16/2015 ORGAN ACQUISITION RENAL, CADAVERIC performed by Franko Larkin MD at [facility] MAIN OR SOCIAL HISTORY Social History [...] CREATININE 1.23 1.22 1.39 CULTURES: Urine culture [[id number]] (Abnormal) Collected: 05/13/16 1300 ? Lab Status: [...] Sensitive ? Trimethoprim/Sulfa Sensitive ? Blood culture [[id number]] Collected: 05/13/16 1232 ? Lab Status: Preliminary result Specimen: Blood from Peripheral Updated: 05/15/16 1501 ? Blood Culture No growth at 2 days. ? Blood culture [[id number]] Collected: 05/13/16 1219 ? Lab Status: Preliminary result Specimen: Blood from PICC Line Updated: 05/15/16 1501 ? Blood Culture No growth at 2 days. ? Urine culture Nephrostomy Urine [[id number]] Collected: 04/28/16 1344 ? Lab Status: Final [...] EXTREMITY performed by Que Amaro MD at [facility] OR ??? Pro transplantation of kidney N/A 09/16/2015 @KIDNEY TRANSPLANT, WITHOUT RECIPIENT NEPHRECTOMY performed by Franko Larkin MD at [facility] OR ??? Pro transplant, prep cadaver renal graft N/A 09/16/2015 @PREPARATION CADAVERIC RENAL ALLOGRAFT performed by Franko Larkin MD at [facility] OR ??? N/A 09/16/2015 ORGAN ACQUISITION RENAL, CADAVERIC performed by Franko Larkin MD at [facility] OR Prior To Admission Medications: Prescriptions Prior [...] Do not hesitate to page us at [phone] with any further questions or concerns. Franko Kim MD Infectious Disease Fellow Pager [phone] Attending Addendum: I have seen and examined [...] Lives in a home with his in [facility] Social & Family Supports/Community Resources: , family and friends Behavioral Health History: None on file Substance Use/Abuse: None on file Other Pertinent/Service Specific Information: None Health/Prescription Coverage: Primary Insurance: Medicare Part A & B Secondary Insurance: BC/BS Prescription Coverage: Yes [facility] Other: None Primary Care Provider: Urbano Denis MD [phone] Patient/Caregiver Goals of Treatment: Patient states I [...] of care planning. Malina Phelan RN Pager: [phone] * Plan of Care - Keyana Moy [...] EST TH Visit (TeleHealth) Cardiology at [address] [phone] Byron Brown MD [facility] [place] [address] 07/14/2024 10:00 AM EST Hospital Encounter Non-[place] [phone] Arrived Scheduled Orders Name Type Priority Associated Diagnoses Orde r Schedule XR Fluoro No Rad <1Hr Imaging Routine Onc e PRN (for Radiant use) for 1 Occurrences starting 05/20/2016 until 05/20/2016 documented as of this encounter Procedures Procedure Name Priority Date/Time Associated Diagnosis Comments ETHYL BLENDER SCAN 05/29/2016 12:00 AM EST HEMOGRAM STAT [...] in this encounter Results * SCAN DOC: ETHYL BLENDER (05/29/2016 12:00 AM EST) Anatomical Region Laterality Modality Other Scanning Provider MEDIA MGR SCAN EXT O RDR/RSLT * Tacrolimus level (05/28/2016 8:01 AM EST) Tacrolimus 4.7 ng/mL [facility] Comment: Trough therapeutic: ??5-15 ng/mL Performed by ultra-performance liquid chromatography tandem mass spectrometry (UPLCMS/MS). Blood specimen (specimen) 05/28/2016 8:01 AM EST 05/28/2016 11:10 AM EST Narrative Resulting Agency Comment Spec In Lab Que Amaro MD CHEMISTRY ROCHELLE JENNINGS [facility] [place] [address] * (ABNORMAL) Differential, Automated (05/28/2016 8:01 AM EST) Neutrophil % 82.6 % [facility] Neutrophil Absolute 10.51(H) 1.70 - 6.10 x10(3)/ L [facility] Lymph % 9.7 % [facility] Lymphocytes Abs 1.2 0.9 - 3.2 x10(3)/[facility] Monocyte % 5.3 % [facility] Monocyte Abs 0.7 0.3 - 0.9 x10(3)/[facility] Eos % 1.5 % [facility] Eosinophils Abs 0.2 0.0 - 0.4 x10(3)/[facility]OR[facility] Basophil % 0.4 % [facility] Baso Absolute 0.0 0.0 - 0.1 x10(3)/[facility] Immature Gran % 0.50 % [facility] Comment: Immature granulocytes(IG's)percentage and absolute count will include metamyelocytes, myelocytes, and promyelocytes. Blood smears from CBCs yielding IG's will be scanned manually for concordance. If this scan disagrees with the automated IG or if promyelocytes are noted, a manual differential will be performed. Immature Gran Absolute 0.07(H) 0.00 - 0.04 x10(3)/ L [facility] Blood specimen (specimen) 05/28/2016 8:01 AM EST 05/28/2016 8:07 AM EST Narrative Resulting Agency Comment Spec In Lab Que Amaro MD HEMATOLOGY ORD ERABLES [facility] [place] [address] * (ABNORMAL) Hemogram (05/28/2016 8:01 AM EST) White Blood Cell 12.7(H) 4.0 - 9.5 x10(3)/[facility] Red Blood Cell 4.20(L) 4.58 - 5.54 x10(6)/[facility] Hemoglobin 13.8 13.7 - 16.5 gm/dL [facility] Hematocrit 39.6(L) 40.5 - 48.5 % [facility] Mean Cell Volume 94.3(H) 82.9 - 93.1 fL [facility] Mean Cell Hemoglobin 32.9(H) 27.5 - 32.1 pg [facility] Mean Cell Hemoglobin Concentration 34.8 32.0 - 35.7 gm/dL [facility] Platelet 276 145 - 357 x10(3)/[facility] RDW Standard Deviation 45.1(H) 36.0 - 45.0 [facility] RDW coefficient of variation 13.2 11.4 - 13.8 % [facility] Mean Platelet Volume 8.5 7.6 - 12.9 [facility] NRBC% auto 0.0 % [facility] NRBC Absolute 0.000 0.000 - 0.000 x10(3)/[facility] Blood specimen (specimen) 05/28/2016 8:01 AM EST 05/28/2016 8:07 AM EST Narrative Resulting Agency Comment Spec In Lab Que Amaro MD HEMATOLOGY ORD ERABLES [facility] [place] [address] * (ABNORMAL) Magnesium (05/28/2016 8:01 AM EST) Magnesium 0.68(L) 0.69 - 1.07 mmol/L [facility] Blood specimen (specimen) 05/28/2016 8:01 AM EST 05/28/2016 8:07 AM EST Narrative Resulting Agency Comment Spec In Lab Que Amaro MD CHEMISTRY ROCHELLE JENNINGS Performing Organization Address City/[facility]/ZIP Co de Phone Number [facility] [place] [address] * Phosphorus (05/28/2016 8:01 AM EST) Phosphorus 2.7 2.5 - 4.5 mg/dL [facility] Blood specimen (specimen) 05/28/2016 8:01 AM EST 05/28/2016 8:07 AM EST Narrative Resulting Agency Comment Spec In Lab Que Amaro MD CHEMISTRY ROCHELLE JENNINGS Performing Organization Address [facility] Co de Phone Number [facility] [place] [address] * Basic Metabolic Panel (non-fasting) (05/28/2016 8:01 AM EST) Pathologist [facility] Glucose 181 65 - 199 mg/dL [facility] Comment:Diabetes: >=200 mg/d L plus symptoms Blood Urea Nitrogen 19 10 - 20 mg/dL [facility] Creatinine 1.16 0.80 - 1.50 mg/dL [facility] Comment: Please note that the pediatric reference intervals supplied above were not validated at [facility]. Results from pediatric patients should be interpreted in conjunction to the patient's age, height and muscle mass. Sodium 141 135 - 145 mmol/L [facility] Potassium 3.8 3.5 - 5.0 mmol/L [facility] Comment: Please note: ??Patients with WBC >100,000 may have falsely elevated Potassium levels. ??For accurate Potassium quantification in these patients send serum separator tube (gold top) for subsequent determinations. ??Contact the Clinical Chemistry Laboratory if there are any questions. Chloride 104 98 - 107 mmol/L [facility] Carbon Dioxide 23 22 - 31 mmol/L [facility] Anion Gap 14 5 - 15 mmol/L [facility] Calcium 9.4 8.5 - 10.5 mg/dL [facility] Est Glomerular [...] the following links into your internet browser. [email or web address] Blood specimen (specimen) 05/28/2016 8:01 AM EST 05/28/2016 8:07 AM EST Narrative Resulting Agency Comment Spec In Lab Que Amaro MD CHEMISTRY ROCHELLE JENNINGS [facility] [place] [address] * (ABNORMAL) Differential, Automated (05/27/2016 5:43 AM EST) Neutrophil % 87.9 % [facility] Neutrophil Absolute 11.88(H) 1.70 - 6.10 x10(3)/mc L [facility] Lymph % 5.0 % [facility] Lymphocytes Abs 0.7(L) 0.9 - 3.2 x10(3)/mc L [facility] Monocyte % 5.5 % [facility] Monocyte Abs 0.8 0.3 - 0.9 x10(3)/mc L [facility] Eos % 0.9 % [facility] Eosinophils Abs 0.1 0.0 - 0.4 x10(3)/mc L [facility] Basophil % 0.3 % [facility] Baso Absolute 0.0 0.0 - 0.1 x10(3)/mc L [facility] Immature Gran % 0.40 % [facility] Comment: Immature granulocytes(IG's)percentage and absolute count will include metamyelocytes, myelocytes, and promyelocytes. Blood smears from CBCs yielding IG's will be scanned manually for concordance. If this scan disagrees with the automated IG or if promyelocytes are noted, a manual differential will be performed. Immature Gran Absolute 0.06(H) 0.00 - 0.04 x10(3)/mc L [facility] Blood specimen (specimen) 05/27/2016 5:43 AM EST 05/27/2016 6:09 AM EST Narrative Resulting Agency Comment Spec In Lab Que Amaro MD HEMATOLOGY ORD ERABLES [facility] [place] [address] * (ABNORMAL) Hemogram (05/27/2016 5:43 AM EST) White Blood Cell 13.5(H) 4.0 - 9.5 x10(3)/mc L [facility] Red Blood Cell 4.10(L) 4.58 - 5.54 x10(6)/mc L [facility] Hemoglobin 13.1(L) 13.7 - 16.5 gm/dL [facility] Hematocrit 38.5(L) 40.5 - 48.5 % [facility] Mean Cell Volume 93.9(H) 82.9 - 93.1 fL [facility] Mean Cell Hemoglobin 32.0 27.5 - 32.1 pg [facility] Mean Cell Hemoglobin Concentration 34.0 32.0 - 35.7 gm/dL [facility] Platelet 246 145 - 357 x10(3)/mc L [facility] RDW Standard Deviation 44.5 36.0 - 45.0 fL [facility] RDW coefficient of variation 13.1 11.4 - 13.8 % [facility] Mean Platelet Volume 8.8 7.6 - 12.9 fL [facility] NRBC% auto 0.0 % [facility] NRBC Absolute 0.000 0.000 - 0.000 x10(3)/mc L [facility] Blood specimen (specimen) 05/27/2016 5:43 AM EST 05/27/2016 6:09 AM EST Narrative Resulting Agency Comment Spec In Lab Que Amaro MD HEMATOLOGY ORD ERABLES Performing Organization Address City/[facility] Co de Phone Number [facility] [place] [address] * Magnesium (05/27/2016 5:43 AM EST) Magnesium 0.73 0.69 - 1.07 mmol/L [facility] Blood specimen (specimen) 05/27/2016 5:43 AM EST 05/27/2016 6:09 AM EST Narrative Resulting Agency Comment Spec In Lab Que Amaro MD CHEMISTRY ORDE DICK Performing Organization Address [facility] de Phone Number [facility] [place] [address] * Phosphorus (05/27/2016 5:43 AM EST) Phosphorus 3.2 2.5 - 4.5 mg/dL [facility] Blood specimen (specimen) 05/27/2016 5:43 AM EST 05/27/2016 6:09 AM EST Narrative Resulting Agency Comment Spec In Lab Que Amaro MD CHEMISTRY ORDE RABLENORE Performing Organization Address [facility] Co de Phone Number [facility] [place] [address] * Basic Metabolic Panel (non-fasting) (05/27/2016 5:43 AM EST) Glucose 148 65 - 199 mg/dL [facility] Comment:Diabetes: >=200 mg/d L plus symptoms Blood Urea Nitrogen 17 10 - 20 mg/dL [facility] Creatinine 1.04 0.80 - 1.50 mg/dL [facility] Comment: Please note that the pediatric reference intervals supplied above were not validated at [facility]. Results from pediatric patients should be interpreted in conjunction to the patient's age, height and muscle mass. Sodium 141 135 - 145 mmol/L [facility] Potassium 3.8 3.5 - 5.0 mmol/L [facility] Comment: Please note: ??Patients with WBC >100,000 may have falsely elevated Potassium levels. ??For accurate Potassium quantification in these patients send serum separator tube (gold top) for subsequent determinations. ??Contact the Clinical Chemistry Laboratory if there are any questions. Chloride 102 98 - 107 mmol/L [facility] Carbon Dioxide 24 22 - 31 mmol/L [facility] Anion Gap 15 5 - 15 mmol/L [facility] Calcium 9.0 8.5 - 10.5 mg/dL [facility] Est Glomerular [...] the following links into your internet browser. [email or web address] Blood specimen (specimen) 05/27/2016 5:43 AM EST 05/27/2016 6:09 AM EST Narrative Resulting Agency Comment Spec In Lab Que Amaro MD CHEMISTRY ROCHELLE JENNINGS [facility] [place] [address] * Potassium (05/26/2016 4:57 PM EST) Potassium 4.5 3.5 - 5.0 mmol/L [facility] Spec In Lab Que Amaro MD CHEMISTRY STEVEE DICK [facility] [place] [address] * XR Chest PA & Lateral (Generic) [...] Blood Culture No growth at 5 days. [facility] Blood specimen (specimen) 05/26/2016 10:09 AM EST 05/26/2016 10:35 AM EST Comment:R AC Narrative Resulting Agency Comment Spec In Lab Que Amaro MD MICROBIOLOGY - BLOOD ORDERABLES Performing Organization Address [facility]/ZIP Co de Phone Number [facility] [place] [address] * Blood culture (05/26/2016 10:04 AM EST) Blood Culture No growth at 5 days. [facility] Blood specimen (specimen) 05/26/2016 10:04 AM EST 05/26/2016 10:35 AM EST Comment:R H Narrative Resulting Agency Comment Spec In Lab Que Amaro MD MICROBIOLOGY - BLOOD ORDERABLES Performing Organization Address [facility]/ZIP Co de Phone Number [facility] [place] [address] * Urine Hold (05/26/2016 9:54 AM EST) Hold, Urine Sample in lab. [facility] Urine specimen (specimen) Urine / Unknown 05/26/2016 9:54 AM EST 05/26/2016 10:46 AM EST Que Amaro MD URINE ORDERABL ES Performing Organization Address [facility] Co de Phone Number [facility] [place] [address] * (ABNORMAL) Urinalysis without microscopic (05/26/2016 9:54 [...] [facility] Blood, Urine Dipstick Moderate(A) Negative mg/dL [facility] Ketone, Urine Dipstick Negative Negative mg/dL [facility] Nitrite, Urine Dipstick Negative Negative [facility] Leukocytes, Urine Dipstick Moderate(A) Negative [facility] Appearance, Urine Dipstick Clear Clear [facility] Specific [place] Urine Automated 1.027 1.002 - 1.030 [facility] Color, Urine Dipstick [place] Yellow [facility] Urine specimen (specimen) 05/26/2016 9:54 AM EST 05/26/2016 10:46 AM EST Narrative Resulting Agency Comment Spec In Lab Que Amaro MD URINE ORDERABL ES [facility] [place] [address] * Urine culture Indwelling Catheter Urine (05/26/2016 9:53 AM EST) Urine Culture No growth (Less than 1,000 cfu/ml). [facility] Urine specimen obtained via indwelling urinary catheter (specimen) 05/26/2016 9:53 AM EST 05/26/2016 10:56 AM EST Narrative Resulting Agency Comment Spec In Lab Que Amaro MD MICROBIOLOGY - GENERAL ORDERABLES Performing Organization Address City/[facility]/ZIP Co de Phone Number [facility] [place] [address] * Tacrolimus level (05/26/2016 7:35 AM EST) Pathologist [facility] Tacrolimus 5.3 ng/mL [facility] Comment: Trough therapeutic: ??5-15 ng/mL Performed by ultra-performance liquid chromatography tandem mass spectrometry (UPLCMS/MS). Blood specimen (specimen) 05/26/2016 7:35 AM EST 05/26/2016 11:12 AM EST Narrative Resulting Agency Comment Spec In Lab Que Amaro MD CHEMISTRY ORDE RABLES Performing Organization Address [facility] Co de Phone Number [facility] [place] [address] * (ABNORMAL) Differential, Automated (05/26/2016 4:30 AM EST) Pathologist [facility] Neutrophil % 80.7 % [facility] Neutrophil Absolute 10.51(H) 1.70 - 6.10 x10(3)/mc L [facility] Lymph % 10.3 % [facility] Lymphocytes Abs 1.3 0.9 - 3.2 x10(3)/mc L [facility] Monocyte % 6.5 % [facility] Monocyte Abs 0.8 0.3 - 0.9 x10(3)/mc L [facility] Eos % 1.6 % [facility] Eosinophils Abs 0.2 0.0 - 0.4 x10(3)/mc L [facility] Basophil % 0.4 % [facility] Baso Absolute 0.0 0.0 - 0.1 x10(3)/mc L [facility] Immature Gran % 0.50 % [facility] Comment: Immature granulocytes(IG's)percentage and absolute count will include metamyelocytes, myelocytes, and promyelocytes. Blood smears from CBCs yielding IG's will be scanned manually for concordance. If this scan disagrees with the automated IG or if promyelocytes are noted, a manual differential will be performed. Immature Gran Absolute 0.06(H) 0.00 - 0.04 x10(3)/ L [facility] Blood specimen (specimen) 05/26/2016 4:30 AM EST 05/26/2016 4:44 AM EST Narrative Resulting Agency Comment Spec In Lab Que Amaro MD HEMATOLOGY ORD ERABLES [facility] [place] [address] * (ABNORMAL) Hemogram (05/26/2016 4:30 AM EST) White Blood Cell 13.0(H) 4.0 - 9.5 x10(3)/[facility] Red Blood Cell 4.67 4.58 - 5.54 x10(6)/[facility] Hemoglobin 14.8 13.7 - 16.5 gm/dL [facility] Hematocrit 43.2 40.5 - 48.5 % [facility] Mean Cell Volume 92.5 82.9 - 93.1 fL [facility] Mean Cell Hemoglobin 31.7 27.5 - 32.1 pg [facility] Mean Cell Hemoglobin Concentration 34.3 32.0 - 35.7 gm/dL [facility] Platelet 304 145 - 357 x10(3)/[facility] RDW Standard Deviation 43.0 36.0 - 45.0 [facility] RDW coefficient of variation 12.9 11.4 - 13.8 % [facility] Mean Platelet Volume 8.6 7.6 - 12.9 [facility] NRBC% auto 0.0 % [facility] NRBC Absolute 0.000 0.000 - 0.000 x10(3)/ L [facility] Blood specimen (specimen) 05/26/2016 4:30 AM EST 05/26/2016 4:44 AM EST Narrative Resulting Agency Comment Spec In Lab Que Amaro MD HEMATOLOGY ORD ERABLES Performing Organization Address [facility] Co de Phone Number [facility] [place] [address] * Magnesium (05/26/2016 4:30 AM EST) Magnesium 0.82 0.69 - 1.07 mmol/L [facility] Blood specimen (specimen) 05/26/2016 4:30 AM EST 05/26/2016 4:44 AM EST Narrative Resulting Agency Comment Spec In Lab Que Amaro MD CHEMISTRY ROCHELLE JENNINGS Performing Organization Address [facility] Phone Number [facility] [place] [address] * Phosphorus (05/26/2016 4:30 AM EST) Phosphorus 3.0 2.5 - 4.5 mg/dL [facility] Blood specimen (specimen) 05/26/2016 4:30 AM EST 05/26/2016 4:44 AM EST Narrative Resulting Agency Comment Spec In Lab Que Amaro MD CHEMISTRY ORDBhargav JENNINGS Performing Organization Address [facility] de Phone Number [facility] [place] [address] * (ABNORMAL) Basic Metabolic Panel (non-fasting) (05/26/2016 4:30 AM EST) Glucose 224(H) 65 - 199 mg/dL [facility] Comment:Diabetes: >=200 mg/d L plus symptoms Blood Urea Nitrogen 20 10 - 20 mg/dL [facility] Comment:result rechecked-llu Creatinine 1.32 0.80 - 1.50 mg/dL [facility] Comment: Please note that the pediatric reference intervals supplied above were not validated at [facility]. Results from pediatric patients should be interpreted in conjunction to the patient's age, height and muscle mass. Sodium 143 135 - 145 mmol/L [facility] Potassium 3.7 3.5 - 5.0 mmol/L [facility] Comment: Please note: ??Patients with WBC >100,000 may have falsely elevated Potassium levels. ??For accurate Potassium quantification in these patients send serum separator tube (gold top) for subsequent determinations. ??Contact the Clinical Chemistry Laboratory if there are any questions. Chloride 100 98 - 107 mmol/L [facility] Carbon Dioxide 23 22 - 31 mmol/L [facility] Anion Gap 20(H) 5 - 15 mmol/L [facility] Calcium 9.8 8.5 - 10.5 mg/dL [facility] Comment:result rechecked-llu Est Glomerular Filtration Rate 54(L) >=60 [facility] [...] the following links into your internet browser. [email or web address] Blood specimen (specimen) 05/26/2016 4:30 AM EST 05/26/2016 4:44 AM EST Narrative Resulting Agency Comment Spec In Lab Que Amaro MD CHEMISTRY ROCHELLE JENNINGS [facility] [place] [address] * (ABNORMAL) Basic Metabolic Panel (non-fasting) (05/25/2016 4:38 PM EST) Glucose 189 65 - 199 mg/dL [facility] Comment:Diabetes: >=200 mg/d L plus symptoms Blood Urea Nitrogen 12 10 - 20 mg/dL [facility] Creatinine 1.10 0.80 - 1.50 mg/dL [facility] Comment: Please note that the pediatric reference intervals supplied above were not validated at [facility]. Results from pediatric patients should be interpreted in conjunction to the patient's age, height and muscle mass. Sodium 140 135 - 145 mmol/L [facility] Potassium 4.0 3.5 - 5.0 mmol/L [facility] Comment: Please note: ??Patients with WBC >100,000 may have falsely elevated Potassium levels. ??For accurate Potassium quantification in these patients send serum separator tube (gold top) for subsequent determinations. ??Contact the Clinical Chemistry Laboratory if there are any questions. Chloride 99 98 - 107 mmol/L [facility] Carbon Dioxide 25 22 - 31 mmol/L [facility] Anion Gap 16(H) 5 - 15 mmol/L [facility] Calcium 9.2 8.5 - 10.5 mg/dL [facility] Est Glomerular [...] the following links into your internet browser. [email or web address] Blood specimen (specimen) 05/25/2016 4:38 PM EST 05/25/2016 4:44 PM EST Narrative Resulting Agency Comment Spec In Lab Que Amaro MD CHEMISTRY ROCHELLE JENNINGS [facility] Organization Address City/State/ZIP Co de Phone Number [facility] [place] [address] * Magnesium (05/25/2016 4:38 PM EST) Magnesium 0.74 0.69 - 1.07 mmol/L [facility] Blood specimen (specimen) 05/25/2016 4:38 PM EST 05/25/2016 4:44 PM EST Narrative Resulting Agency Comment Spec In Lab Que Amaro MD CHEMISTRY ROCHELLE JENNINGS [facility] [place] [address] * XR Abdomen 1 view (Generic) (05/25/2016 [...] with medication in the gut. There is [id number] gaseous distention of the large bowel most [...] correspond withmedication in the gut. There is [id number]-[id number] gaseous distention of the largebowel most suggestive of an adynamic ileus. No free air is seen. Bony structuresappear intact. IMPRESSION Increasing mild to moderate gaseous distention throughout the large bowelmost suggestive of an adynamic or reactive ileus Que Amaro MD IMG DX ORDERAB LES * (ABNORMAL) Magnesium (05/25/2016 4:47 AM EST) Pathologist [facility] Magnesium 0.61(L) 0.69 - 1.07 mmol/L [facility] Blood specimen (specimen) 05/25/2016 4:47 AM EST 05/25/2016 4:59 AM EST Narrative Resulting Agency Comment Spec In Lab Que Amaro MD CHEMISTRY ORDBhargav JENNINGS Performing Organization Address [facility] Co de Phone Number [facility] [place] [address] * Phosphorus (05/25/2016 4:47 AM EST) [facility] Phosphorus 2.5 2.5 - 4.5 mg/dL [facility] Blood specimen (specimen) 05/25/2016 4:47 AM EST 05/25/2016 4:59 AM EST Narrative Resulting Agency Comment Spec In Lab Que Amaro MD CHEMISTRY ORDBhargav JENNINGS Performing Organization Address [facility]/ZIP Co de Phone Number [facility] [place] [address] * Basic Metabolic Panel (non-fasting) (05/25/2016 4:47 AM EST) Pathologist [facility] Glucose 159 65 - 199 mg/dL [facility] Comment:Diabetes: >=200 mg/d L plus symptoms Blood Urea Nitrogen 10 10 - 20 mg/dL [facility] Creatinine 0.98 0.80 - 1.50 mg/dL [facility] Comment: Please note that the pediatric reference intervals supplied above were not validated at [facility]. Results from pediatric patients should be interpreted in conjunction to the patient's age, height and muscle mass. Sodium 138 135 - 145 mmol/L [facility] Potassium 3.5 3.5 - 5.0 mmol/L [facility] Comment: Please note: ??Patients with WBC >100,000 may have falsely elevated Potassium levels. ??For accurate Potassium quantification in these patients send serum separator tube (gold top) for subsequent determinations. ??Contact the Clinical Chemistry Laboratory if there are any questions. Chloride 98 98 - 107 mmol/L [facility] Carbon Dioxide 27 22 - 31 mmol/L [facility] Anion Gap 13 5 - 15 mmol/L [facility] Calcium 8.7 8.5 - 10.5 mg/dL [facility] Est Glomerular [...] the following links into your internet browser. [email or web address] Blood specimen (specimen) 05/25/2016 4:47 AM EST 05/25/2016 4:59 AM EST Narrative Resulting Agency Comment Spec In Lab Que Amaro MD CHEMISTRY ROCHELLE JENNINGS [facility] [place] [address] * (ABNORMAL) Differential, Automated (05/25/2016 4:47 AM EST) Neutrophil % 83.2 % [facility] Neutrophil Absolute 8.21(H) 1.70 - 6.10 x10(3)/[facility] Lymph % 9.3 % [facility] Lymphocytes Abs 0.9 0.9 - 3.2 x10(3)/ L [facility] Monocyte % 5.4 % [facility] Monocyte Abs 0.5 0.3 - 0.9 x10(3)/[facility] Eos % 1.2 % [facility] Eosinophils Abs 0.1 0.0 - 0.4 x10(3)/[facility] Basophil % 0.4 % [facility] Baso Absolute 0.0 0.0 - 0.1 x10(3)/[facility] Immature Gran % 0.50 % [facility] Comment: Immature granulocytes(IG's)percentage and absolute count will include metamyelocytes, myelocytes, and promyelocytes. Blood smears from CBCs yielding IG's will be scanned manually for concordance. If this scan disagrees with the automated IG or if promyelocytes are noted, a manual differential will be performed. Immature Gran Absolute 0.05(H) 0.00 - 0.04 x10(3)/[facility] Blood specimen (specimen) 05/25/2016 4:47 AM EST 05/25/2016 4:59 AM EST Narrative Resulting Agency Comment Spec In Lab Que Amaro MD HEMATOLOGY ORD ERABLES [facility] [place] [address] * (ABNORMAL) Hemogram (05/25/2016 4:47 AM EST) White Blood Cell 9.9(H) 4.0 - 9.5 x10(3)/[facility] Red Blood Cell 4.35(L) 4.58 - 5.54 x10(6)/[facility] Hemoglobin 14.2 13.7 - 16.5 gm/dL [facility] Hematocrit 40.3(L) 40.5 - 48.5 % [facility] Mean Cell Volume 92.6 82.9 - 93.1 fL [facility] Mean Cell Hemoglobin 32.6(H) 27.5 - 32.1 pg [facility] Mean Cell Hemoglobin Concentration 35.2 32.0 - 35.7 gm/dL [facility] Platelet 247 145 - 357 x10(3)/mc L [facility] RDW Standard Deviation 42.3 36.0 - 45.0 fL [facility] RDW coefficient of variation 12.5 11.4 - 13.8 % [facility] Mean Platelet Volume 8.7 7.6 - 12.9 [facility] NRBC% auto 0.0 % [facility] NRBC Absolute 0.000 0.000 - 0.000 x10(3)/mc L [facility] Blood specimen (specimen) 05/25/2016 4:47 AM EST 05/25/2016 4:59 AM EST Narrative Resulting Agency Comment Spec In Lab Que Amaro MD HEMATOLOGY ORD ERABLES Performing Organization Address City/State/[facility] Co de Phone Number [facility] [place] [address] * (ABNORMAL) Differential, Automated (05/24/2016 4:45 AM EST) Neutrophil % 75.5 % [facility] Neutrophil Absolute 6.34(H) 1.70 - 6.10 x10(3)/mc L [facility] Lymph % 14.6 % [facility] Lymphocytes Abs 1.2 0.9 - 3.2 x10(3)/mc L [facility] Monocyte % 6.0 % [facility] Monocyte Abs 0.5 0.3 - 0.9 x10(3)/ L [facility] Eos % 2.9 % [facility] Eosinophils Abs 0.2 0.0 - 0.4 x10(3)/[facility] Basophil % 0.6 % [facility] Baso Absolute 0.0 0.0 - 0.1 x10(3)/[facility] Immature Gran % 0.40 % [facility] Comment: Immature granulocytes(IG's)percentage and absolute count will include metamyelocytes, myelocytes, and promyelocytes. Blood smears from CBCs yielding IG's will be scanned manually for concordance. If this scan disagrees with the automated IG or if promyelocytes are noted, a manual differential will be performed. Immature Gran Absolute 0.03 0.00 - 0.04 x10(3)/[facility] LABORATORY Blood specimen (specimen) 05/24/2016 4:45 AM EST 05/24/2016 5:06 AM EST Narrative Resulting Agency Comment Spec In Lab Que Amaro MD HEMATOLOGY ORD ERABLES [facility] [place] [address] * (ABNORMAL) Hemogram (05/24/2016 4:45 AM EST) White Blood Cell 8.4 4.0 - 9.5 x10(3)/ L [facility] Red Blood Cell 3.96(L) 4.58 - 5.54 x10(6)/ L [facility] Hemoglobin 12.7(L) 13.7 - 16.5 gm/dL [facility] Hematocrit 36.6(L) 40.5 - 48.5 % [facility] Mean Cell Volume 92.4 82.9 - 93.1 fL [facility] Mean Cell Hemoglobin 32.1 27.5 - 32.1 pg [facility] Mean Cell Hemoglobin Concentration 34.7 32.0 - 35.7 gm/dL [facility] Platelet 211 145 - 357 x10(3)/mc L [facility] RDW Standard Deviation 42.5 36.0 - 45.0 fL [facility] RDW coefficient of variation 12.5 11.4 - 13.8 % [facility] Mean Platelet Volume 8.9 7.6 - 12.9 fL [facility] NRBC% auto 0.0 % [facility] NRBC Absolute 0.000 0.000 - 0.000 x10(3)/mc L [facility] Blood specimen (specimen) 05/24/2016 4:45 AM EST 05/24/2016 5:06 AM EST Narrative Resulting Agency Comment Spec In Lab Que Amaro MD HEMATOLOGY ORD ERABLES Performing Organization Address City/[facility]/ZIP Co de Phone Number [facility] [place] [address] * (ABNORMAL) Magnesium (05/24/2016 4:45 AM EST) Magnesium 0.59(L) 0.69 - 1.07 mmol/L [facility] Blood specimen (specimen) 05/24/2016 4:45 AM EST 05/24/2016 5:06 AM EST Narrative Resulting Agency Comment Spec In Lab Que Amaro MD CHEMISTRY ORDBhargav JENNINGS Performing Organization Address City/[facility]/ZIP Co de Phone Number [facility] [place] [address] * Phosphorus (05/24/2016 4:45 AM EST) Phosphorus 2.6 2.5 - 4.5 mg/dL [facility] Blood specimen (specimen) 05/24/2016 4:45 AM EST 05/24/2016 5:06 AM EST Narrative Resulting Agency Comment Spec In Lab Que Amaro MD CHEMISTRY ORDE RABLES [facility] [place] [address] * Basic Metabolic Panel (non-fasting) (05/24/2016 4:45 AM EST) Glucose 128 65 - 199 mg/dL [facility] Comment:Diabetes: >=200 mg/d L plus symptoms Blood Urea Nitrogen 10 10 - 20 mg/dL [facility] Creatinine 1.04 0.80 - 1.50 mg/dL [facility] Comment: Please note that the pediatric reference intervals supplied above were not validated at [facility]. Results from pediatric patients should be interpreted in conjunction to the patient's age, height and muscle mass. Sodium 139 135 - 145 mmol/L [facility] Potassium 3.6 3.5 - 5.0 mmol/L [facility] Comment: Please note: ??Patients with WBC >100,000 may have falsely elevated Potassium levels. ??For accurate Potassium quantification in these patients send serum separator tube (gold top) for subsequent determinations. ??Contact the Clinical Chemistry Laboratory if there are any questions. Chloride 101 98 - 107 mmol/L [facility] Carbon Dioxide 25 22 - 31 mmol/L [facility] Anion Gap 13 5 - 15 mmol/L [facility] Calcium 8.5 8.5 - 10.5 mg/dL [facility] Est Glomerular [...] the following links into your internet browser. [email or web address] Blood specimen (specimen) 05/24/2016 4:45 AM EST 05/24/2016 5:06 AM EST Narrative Resulting Agency Comment Spec In Lab Que Amaro MD CHEMISTRY ROCHELLE JENNINGS Performing Organization Address [facility] Co de Phone Number [facility] [place] [address] * Tacrolimus level (05/23/2016 7:50 AM EST) Pathologist [facility] Tacrolimus 5.4 ng/mL [facility] Comment: Trough therapeutic: ??5-15 ng/mL Performed by ultra-performance liquid chromatography tandem mass spectrometry (UPLCMS/MS). Blood specimen (specimen) 05/23/2016 7:50 AM EST 05/23/2016 11:06 AM EST Narrative Resulting Agency Comment Spec In Lab Que Amaro MD CHEMISTRY ROCHELLE JENNINGS Performing Organization Address [facility] de Phone Number [facility] [place] [address] * (ABNORMAL) Differential, Automated (05/23/2016 5:43 AM EST) [facility] Neutrophil % 72.3 % [facility] Neutrophil Absolute 7.21(H) 1.70 - 6.10 x10(3)/mc L [facility] Lymph % 20.0 % [facility] Lymphocytes Abs 2.0 0.9 - 3.2 x10(3)/mc L [facility] Monocyte % 5.4 % [facility] Monocyte Abs 0.5 0.3 - 0.9 x10(3)/mc L [facility] Eos % 1.2 % [facility] Eosinophils Abs 0.1 0.0 - 0.4 x10(3)/mc L [facility] Basophil % 0.6 % [facility] Baso Absolute 0.1 0.0 - 0.1 x10(3)/mc L [facility] Immature Gran % 0.50 % [facility] Comment: Immature granulocytes(IG's)percentage and absolute count will include metamyelocytes, myelocytes, and promyelocytes. Blood smears from CBCs yielding IG's will be scanned manually for concordance. If this scan disagrees with the automated IG or if promyelocytes are noted, a manual differential will be performed. Immature Gran Absolute 0.05(H) 0.00 - 0.04 x10(3)/ L [facility] Blood specimen (specimen) 05/23/2016 5:43 AM EST 05/23/2016 5:51 AM EST Narrative Resulting Agency Comment Spec In Lab Que Amaro MD HEMATOLOGY ORD ERABLES [facility] [place] [address] * (ABNORMAL) Hemogram (05/23/2016 5:43 AM EST) White Blood Cell 10.0(H) 4.0 - 9.5 x10(3)/ L [facility] Red Blood Cell 4.22(L) 4.58 - 5.54 x10(6)/mc L [facility] Hemoglobin 13.9 13.7 - 16.5 gm/dL [facility] Hematocrit 40.7 40.5 - 48.5 % [facility] Mean Cell Volume 96.4(H) 82.9 - 93.1 fL [facility] Mean Cell Hemoglobin 32.9(H) 27.5 - 32.1 pg [facility] Mean Cell Hemoglobin Concentration 34.2 32.0 - 35.7 gm/dL [facility] Platelet 211 145 - 357 x10(3)/ L [facility] RDW Standard Deviation 44.1 36.0 - 45.0 fL [facility] RDW coefficient of variation 12.5 11.4 - 13.8 % [facility] Mean Platelet Volume 8.9 7.6 - 12.9 fL [facility] NRBC% auto 0.0 % [facility] NRBC Absolute 0.000 0.000 - 0.000 x10(3)/mc L [facility] Blood specimen (specimen) 05/23/2016 5:43 AM EST 05/23/2016 5:51 AM EST Narrative Resulting Agency Comment Spec In Lab Que Amaro MD HEMATOLOGY ORD ERABLES Performing Organization Address City/[facility]/ZIP Co de Phone Number [facility] [place] [address] * (ABNORMAL) Magnesium (05/23/2016 5:37 AM EST) Magnesium 0.55(L) 0.69 - 1.07 mmol/L [facility] Blood specimen (specimen) 05/23/2016 5:37 AM EST 05/23/2016 5:51 AM EST Narrative Resulting Agency Comment Spec In Lab Que Amaro MD CHEMISTRY ORDBhargav JENNINGS Performing Organization Address [facility] Co de Phone Number [facility] [place] [address] * (ABNORMAL) Phosphorus (05/23/2016 5:37 AM EST) Phosphorus 2.2(L) 2.5 - 4.5 mg/dL [facility] Blood specimen (specimen) 05/23/2016 5:37 AM EST 05/23/2016 5:51 AM EST Narrative Resulting Agency Comment Spec In Lab Que Amaro MD CHEMISTRY ORDBhargav JENNINGS Performing Organization Address [facility] Co de Phone Number [facility] [place] [address] * (ABNORMAL) Basic Metabolic Panel (non-fasting) (05/23/2016 5:37 AM EST) Glucose 136 65 - 199 mg/dL [facility] Comment:Diabetes: >=200 mg/d L plus symptoms Blood Urea Nitrogen 14 10 - 20 mg/dL [facility] Creatinine 1.24 0.80 - 1.50 mg/dL [facility] Comment: Please note that the pediatric reference intervals supplied above were not validated at [facility]. Results from pediatric patients should be interpreted in conjunction to the patient's age, height and muscle mass. Sodium 140 135 - 145 mmol/L [facility] Potassium 3.7 3.5 - 5.0 mmol/L [facility] Comment: Please note: ??Patients with WBC >100,000 may have falsely elevated Potassium levels. ??For accurate Potassium quantification in these patients send serum separator tube (gold top) for subsequent determinations. ??Contact the Clinical Chemistry Laboratory if there are any questions. Chloride 101 98 - 107 mmol/L [facility] Carbon Dioxide 25 22 - 31 mmol/L [facility] Anion Gap 14 5 - 15 mmol/L [facility] Calcium 8.9 8.5 - 10.5 mg/dL [facility] Est Glomerular Filtration Rate 58(L) >=60 [facility] [...] the following links into your internet browser. [email or web address] Blood specimen (specimen) 05/23/2016 5:37 AM EST 05/23/2016 5:51 AM EST Narrative Resulting Agency Comment Spec In Lab Que Amaro MD CHEMISTRY ROCHELLE JENNINGS [facility] Organization Address City/State/ZIP Co de Phone Number [facility] [place] [address] * Vancomycin, trough (05/22/2016 7:29 AM EST) Vancomycin, Trough 17.4 mg/L [facility] Comment: Therapeutic range for [...] Lab Que Amaro MD CHEMISTRY ROCHELLE JENNINGS [facility] [place] [address] * (ABNORMAL) Differential, Automated (05/22/2016 7:29 AM EST) Neutrophil % 81.7 % [facility] Neutrophil Absolute 8.59(H) 1.70 - 6.10 x10(3)/mc L [facility] Lymph % 11.3 % [facility] Lymphocytes Abs 1.2 0.9 - 3.2 x10(3)/mc L [facility] Monocyte % 6.3 % [facility] Monocyte Abs 0.7 0.3 - 0.9 x10(3)/mc L [facility] Eos % 0.1 % [facility] Eosinophils Abs 0.0 0.0 - 0.4 x10(3)/mc L [facility] Basophil % 0.2 % [facility] Baso Absolute 0.0 0.0 - 0.1 x10(3)/mc L [facility] Immature Gran % 0.40 % [facility] Comment: Immature granulocytes(IG's)percentage and absolute count will include metamyelocytes, myelocytes, and promyelocytes. Blood smears from CBCs yielding IG's will be scanned manually for concordance. If this scan disagrees with the automated IG or if promyelocytes are noted, a manual differential will be performed. Immature Gran Absolute 0.04 0.00 - 0.04 x10(3)/mc L [facility] Blood specimen (specimen) 05/22/2016 7:29 AM EST 05/22/2016 8:02 AM EST Narrative Resulting Agency Comment Spec In Lab Que Amaro MD HEMATOLOGY ORD ERABLES [facility] [place] [address] * (ABNORMAL) Hemogram (05/22/2016 7:29 AM EST) White Blood Cell 10.5(H) 4.0 - 9.5 x10(3)/mc L [facility] Red Blood Cell 3.92(L) 4.58 - 5.54 x10(6)/mc L [facility] Hemoglobin 12.8(L) 13.7 - 16.5 gm/dL [facility] Hematocrit 36.7(L) 40.5 - 48.5 % [facility] Mean Cell Volume 93.6(H) 82.9 - 93.1 fL [facility] Mean Cell Hemoglobin 32.7(H) 27.5 - 32.1 pg [facility] Mean Cell Hemoglobin Concentration 34.9 32.0 - 35.7 gm/dL [facility] Platelet 210 145 - 357 x10(3)/mc L [facility] RDW Standard Deviation 43.1 36.0 - 45.0 [facility] LABORATORY RDW coefficient of variation 12.5 11.4 - 13.8 % [facility] Mean Platelet Volume 8.9 7.6 - 12.9 fL [facility] NRBC% auto 0.0 % [facility] NRBC Absolute 0.000 0.000 - 0.000 x10(3)/mc L [facility] Blood specimen (specimen) 05/22/2016 7:29 AM EST 05/22/2016 8:02 AM EST Narrative Resulting Agency Comment Spec In Lab Que Amaro MD HEMATOLOGY ORD ERABLES Performing Organization Address City/[facility]/ZIP Co de Phone Number [facility] [place] [address] * (ABNORMAL) Magnesium (05/22/2016 7:29 AM EST) Magnesium 0.65(L) 0.69 - 1.07 mmol/L [facility] Blood specimen (specimen) 05/22/2016 7:29 AM EST 05/22/2016 8:02 AM EST Narrative Resulting Agency Comment Spec In Lab Que Amaro MD CHEMISTRY ORDBhargav JENNINGS Performing Organization Address City/[facility]/ZIP Co de Phone Number [facility] [place] [address] * Phosphorus (05/22/2016 7:29 AM EST) Phosphorus 2.6 2.5 - 4.5 mg/dL [facility] Blood specimen (specimen) 05/22/2016 7:29 AM EST 05/22/2016 8:02 AM EST Narrative Resulting Agency Comment Spec In Lab Que Amaro MD CHEMISTRY ORDBhargav JENNINGS Performing Organization Address City/[facility]/ZIP Co de Phone Number [facility] [place] [address] * (ABNORMAL) Basic Metabolic Panel (non-fasting) (05/22/2016 7:29 AM EST) Glucose 159 65 - 199 mg/dL [facility] Comment:Diabetes: >=200 mg/d L plus symptoms Blood Urea Nitrogen 19 10 - 20 mg/dL [facility] Creatinine 1.37 0.80 - 1.50 mg/dL [facility] Comment: Please note that the pediatric reference intervals supplied above were not validated at [facility]. Results from pediatric patients should be interpreted in conjunction to the patient's age, height and muscle mass. Sodium 137 135 - 145 mmol/L [facility] Potassium 4.0 3.5 - 5.0 mmol/L [facility] Comment: Please note: ??Patients with WBC >100,000 may have falsely elevated Potassium levels. ??For accurate Potassium quantification in these patients send serum separator tube (gold top) for subsequent determinations. ??Contact the Clinical Chemistry Laboratory if there are any questions. Chloride 101 98 - 107 mmol/L [facility] Carbon Dioxide 22 22 - 31 mmol/L [facility] Anion Gap 14 5 - 15 mmol/L [facility] Calcium 8.9 8.5 - 10.5 mg/dL [facility] Est Glomerular Filtration Rate 52(L) >=60 [facility] [...] the following links into your internet browser. [email or web address] Blood specimen (specimen) 05/22/2016 7:29 AM EST 05/22/2016 8:02 AM EST Narrative Resulting Agency Comment Spec In Lab Que Amaro MD CHEMISTRY ROCHELLE JENNINGS [facility] [place] [address] * (ABNORMAL) Urinalysis with reflex Culture (05/21/2016 [...] [facility] Blood, Urine Dipstick Large(A) Negative mg/dL [facility] Ketone, Urine Dipstick Negative Negative mg/dL [facility] Nitrite, Urine Dipstick Negative Negative [facility] Leukocytes, Urine Dipstick Large(A) Negative [facility] Appearance, Urine Dipstick Clear Clear [facility] Specific [place] Urine Automated 1.021 1.002 - 1.030 [facility] Color, Urine Dipstick Yellow Yellow [facility] RBC, Urine 33(H) 0 - 3 /HPF [facility] WBC, Urine 25(H) 0 - 3 /HPF [facility] Bacteria, Urine Rare(A) None /HPF [facility] Squamous Epithelial Cells, Urine <1 <=4 /HPF [facility] Reflex to Culture Dup Culture [facility] Urine specimen obtained by clean catch procedure (specimen) 05/21/2016 10:52 AM EST 05/21/2016 10:59 AM EST Narrative Resulting Agency Comment Spec In Lab Que Amaro MD URINE ORDERABL ES [facility] [place] [address] * Urine culture Nephrostomy Urine (05/21/2016 10:51 AM EST) Urine Culture No growth (Less than 1,000 cfu/ml). [facility] Urine specimen obtained by clean catch procedure (specimen) 05/21/2016 10:51 AM EST 05/22/2016 4:32 PM EST Narrative Resulting Agency Comment Spec In Lab Que Amaro MD MICROBIOLOGY - GENERAL ORDERABLES Performing Organization Address [facility] Co de Phone Number [facility] [place] [address] * Tacrolimus level (05/21/2016 7:52 AM EST) Tacrolimus 6.6 ng/mL [facility] Comment: Trough therapeutic: ??5-15 ng/mL Performed by ultra-performance liquid chromatography tandem mass spectrometry (UPLCMS/MS). Blood specimen (specimen) 05/21/2016 7:52 AM EST 05/21/2016 10:42 AM EST Narrative Resulting Agency Comment Spec In Lab Que Amaro MD CHEMISTRY ORDE RABLES Performing Organization Address [facility] de Phone Number [facility] [place] [address] * XR Abdomen 1 view (Generic) (05/21/2016 [...] 5:53 AM EST) Neutrophil % 90.9 % [facility] Neutrophil Absolute 10.31(H) 1.70 - 6.10 x10(3)/mc L [facility] Lymph % 4.5 % [facility] Lymphocytes Abs 0.5(L) 0.9 - 3.2 x10(3)/mc L [facility] Monocyte % 4.0 % [facility] Monocyte Abs 0.4 0.3 - 0.9 x10(3)/mc L [facility] Eos % 0.0 % [facility] Eosinophils Abs 0.0 0.0 - 0.4 x10(3)/mc L [facility] Basophil % 0.2 % [facility] Baso Absolute 0.0 0.0 - 0.1 x10(3)/mc L [facility] Immature Gran % 0.40 % [facility] Comment: Immature granulocytes(IG's)percentage and absolute count will include metamyelocytes, myelocytes, and promyelocytes. Blood smears from CBCs yielding IG's will be scanned manually for concordance. If this scan disagrees with the automated IG or if promyelocytes are noted, a manual differential will be performed. Immature Gran Absolute 0.04 0.00 - 0.04 x10(3)/ L [facility] Blood specimen (specimen) 05/21/2016 5:53 AM EST 05/21/2016 6:15 AM EST Narrative Resulting Agency Comment Spec In Lab Que Amaro MD HEMATOLOGY ORD ERABLES Performing Organization Address City/State/[facility] Co de Phone Number [facility] [place] [address] * (ABNORMAL) Hemogram (05/21/2016 5:53 AM EST) White Blood Cell 11.3(H) 4.0 - 9.5 x10(3)/[facility] LABOR[facility] Red Blood Cell 4.15(L) 4.58 - 5.54 x10(6)/[facility] Hemoglobin 13.5(L) 13.7 - 16.5 gm/dL [facility] Hematocrit 37.8(L) 40.5 - 48.5 % [facility] Mean Cell Volume 91.1 82.9 - 93.1 [facility] Mean Cell Hemoglobin 32.5(H) 27.5 - 32.1 pg [facility] Mean Cell Hemoglobin Concentration 35.7 32.0 - 35.7 gm/dL [facility] Platelet 222 145 - 357 x10(3)/[facility] LAB[facility] RDW Standard Deviation 40.7 36.0 - 45.0 [facility] RDW coefficient of variation 12.2 11.4 - 13.8 % [facility] Mean Platelet Volume 8.8 7.6 - 12.9 [facility] NRBC% auto 0.0 % [facility] NRBC Absolute 0.000 0.000 - 0.000 x10(3)/[facility] LAB[facility] Blood specimen (specimen) 05/21/2016 5:53 AM EST 05/21/2016 6:15 AM EST Narrative Resulting Agency Comment Spec In Lab Que Amaro MD HEMATOLOGY ORD ERABLES Performing Organization Address [facility] de Phone Number [facility] [place] [address] * (ABNORMAL) Magnesium (05/21/2016 5:53 AM EST) Magnesium 0.51(L) 0.69 - 1.07 mmol/L [facility] Blood specimen (specimen) 05/21/2016 5:53 AM EST 05/21/2016 6:15 AM EST Narrative Resulting Agency Comment Spec In Lab Que Amaro MD CHEMISTRY ROCHELLE JENNINGS Performing Organization Address [facility] Phone Number [facility] [place] [address] * (ABNORMAL) Phosphorus (05/21/2016 5:53 AM EST) Phosphorus 2.4(L) 2.5 - 4.5 mg/dL [facility] Blood specimen (specimen) 05/21/2016 5:53 AM EST 05/21/2016 6:15 AM EST Narrative Resulting Agency Comment Spec In Lab Que Amaro MD CHEMISTRY ORDBhargav JENNINGS Performing Organization Address [facility] Phone Number [facility] [place] [address] * (ABNORMAL) Basic Metabolic Panel (non-fasting) (05/21/2016 5:53 AM EST) Glucose 269(H) 65 - 199 mg/dL [facility] Comment:Diabetes: >=200 mg/d L plus symptoms Blood Urea Nitrogen 17 10 - 20 mg/dL [facility] Creatinine 1.27 0.80 - 1.50 mg/dL [facility] Comment: Please note that the pediatric reference intervals supplied above were not validated at [facility]. Results from pediatric patients should be interpreted in conjunction to the patient's age, height and muscle mass. Sodium 136 135 - 145 mmol/L [facility] Potassium 4.5 3.5 - 5.0 mmol/L [facility] Comment: Please note: ??Patients with WBC >100,000 may have falsely elevated Potassium levels. ??For accurate Potassium quantification in these patients send serum separator tube (gold top) for subsequent determinations. ??Contact the Clinical Chemistry Laboratory if there are any questions. Chloride 101 98 - 107 mmol/L [facility] Carbon Dioxide 18(L) 22 - 31 mmol/L [facility] Anion Gap 17(H) 5 - 15 mmol/L [facility] Calcium 8.4(L) 8.5 - 10.5 mg/dL [facility] Est Glomerular Filtration Rate 57(L) >=60 [facility] [...] the following links into your internet browser. [email or web address] Blood specimen (specimen) 05/21/2016 5:53 AM EST 05/21/2016 6:15 AM EST Narrative Resulting Agency Comment Spec In Lab Que Amaro MD CHEMISTRY ROCHELLE JENNINGS [facility] Organization Address City/State/ZIP Co de Phone Number [facility] [place] [address] * US Renal Transplant Left (05/20/2016 10:18 [...] at 05/27/2016 11:38 AM Que Amaro MD [facility] [place] US GEN ORD ERABLES * (ABNORMAL) Differential, Automated (05/20/2016 10:15 PM EST) Neutrophil % 92.5 % [facility] Neutrophil Absolute 9.41(H) 1.70 - 6.10 x10(3)/mc L [facility] Lymph % 4.3 % [facility] Lymphocytes Abs 0.4(L) 0.9 - 3.2 x10(3)/mc L [facility] Monocyte % 2.3 % [facility] Monocyte Abs 0.2(L) 0.3 - 0.9 x10(3)/mc L [facility] Eos % 0.1 % [facility] Eosinophils Abs 0.0 0.0 - 0.4 x10(3)/ L [facility] Basophil % 0.3 % [facility] Baso Absolute 0.0 0.0 - 0.1 x10(3)/[facility] Immature Gran % 0.50 % [facility] Comment: Immature granulocytes(IG's)percentage and absolute count will include metamyelocytes, myelocytes, and promyelocytes. Blood smears from CBCs yielding IG's will be scanned manually for concordance. If this scan disagrees with the automated IG or if promyelocytes are noted, a manual differential will be performed. Immature Gran Absolute 0.05(H) 0.00 - 0.04 x10(3)/[facility] Blood specimen (specimen) 05/20/2016 10:15 PM EST 05/20/2016 10:25 PM EST Narrative Resulting Agency Comment Spec In Lab Que Amaro MD HEMATOLOGY ORD ERABLES [facility] [place] [address] * (ABNORMAL) Hemogram (05/20/2016 10:15 PM EST) White Blood Cell 10.2(H) 4.0 - 9.5 x10(3)/[facility] Red Blood Cell 4.36(L) 4.58 - 5.54 x10(6)/[facility] Hemoglobin 13.9 13.7 - 16.5 gm/dL [facility] Hematocrit 40.6 40.5 - 48.5 % [facility] Mean Cell Volume 93.1 82.9 - 93.1 fL [facility] Mean Cell Hemoglobin 31.9 27.5 - 32.1 pg [facility] Mean Cell Hemoglobin Concentration 34.2 32.0 - 35.7 gm/dL [facility] Platelet 214 145 - 357 x10(3)/[facility] RDW Standard Deviation 42.1 36.0 - 45.0 [facility] RDW coefficient of variation 12.2 11.4 - 13.8 % [facility] Mean Platelet Volume 8.7 7.6 - 12.9 [facility] NRBC% auto 0.0 % [facility] NRBC Absolute 0.000 0.000 - 0.000 x10(3)/mc L [facility] Blood specimen (specimen) 05/20/2016 10:15 PM EST 05/20/2016 10:25 PM EST Narrative Resulting Agency Comment Spec In Lab Que Amaro MD HEMATOLOGY ORD ERABLES Performing Organization Address [facility] Co de Phone Number [facility] [place] [address] * Lactate, whole blood, send to lab (05/20/2016 10:15 PM EST) Lactate WB 1.4 0.5 - 2.2 mmol/L [facility] Blood specimen (specimen) 05/20/2016 10:15 PM EST 05/20/2016 10:25 PM EST Narrative Resulting Agency Comment Spec In Lab Que Amaro MD CHEMISTRY ORDBhargav JENNINGS Performing Organization Address [facility] Co de Phone Number [facility] [place] [address] * Phosphorus (05/20/2016 10:15 PM EST) Phosphorus 3.0 2.5 - 4.5 mg/dL [facility] Blood specimen (specimen) 05/20/2016 10:15 PM EST 05/20/2016 10:25 PM EST Narrative Resulting Agency Comment Spec In Lab Que Amaro MD CHEMISTRY ORDBhargav JENNINGS Performing Organization Address City/[facility]/ZIP Co de Phone Number [facility] [place] [address] * (ABNORMAL) Magnesium (05/20/2016 10:15 PM EST) Pathologist [facility] Magnesium 0.51(L) 0.69 - 1.07 mmol/L [facility] Blood specimen (specimen) 05/20/2016 10:15 PM EST 05/20/2016 10:25 PM EST Narrative Resulting Agency Comment Spec In Lab Que Amaro MD CHEMISTRY ROCHELLE JENNINGS [facility] [place] [address] * (ABNORMAL) BMP w/fasting Glucose (05/20/2016 10:15 PM EST) [facility] Glucose Fasting 254(H) 65 - 99 mg/dL [facility] Comment: ?Fasting* Glucose Interpretive [...] of Diabetes Mellitus, Position Statement from the [employer]. ??Diabetes Care, Volume 33, Supplement 1, Jul 2009 Blood Urea Nitrogen 16 10 - 20 mg/dL [facility] Creatinine 1.21 0.80 - 1.50 mg/dL [facility] Comment: Please note that the pediatric reference intervals supplied above were not validated at [facility]. Results from pediatric patients should be interpreted in conjunction to the patient's age, height and muscle mass. Sodium 138 135 - 145 mmol/L [facility] Potassium 4.3 3.5 - 5.0 mmol/L [facility] Comment: Please note: ??Patients with WBC >100,000 may have falsely elevated Potassium levels. ??For accurate Potassium quantification in these patients send serum separator tube (gold top) for subsequent determinations. ??Contact the Clinical Chemistry Laboratory if there are any questions. Chloride 104 98 - 107 mmol/L [facility] Carbon Dioxide 20(L) 22 - 31 mmol/L [facility] Anion Gap 14 5 - 15 mmol/L [facility] Calcium 8.4(L) 8.5 - 10.5 mg/dL [facility] Est Glomerular Filtration Rate 60 >=60 [facility] [...] the following links into your internet browser. [email or web address] Blood specimen (specimen) 05/20/2016 10:15 PM EST 05/20/2016 10:25 PM EST Narrative Resulting Agency Comment Spec In Lab Que Amaro MD CHEMISTRY ROCHELLE JENNINGS Performing Organization Address [facility] [place] [address] * Specimen to Pathology (surgical or derm) (05/20/2016 7:38 PM EST) AP Specimen 05/20/2016 7:38 PM EST 05/20/2016 7:38 PM EST Narrative [facility] - 05/20/2016 7:38 PM EST Specimen requisition ordered. ??Separate Pathology report to follow Que Amaro MD PATHOLOGY/CYTO LOGY ORDERABLES Performing Organization Address City/[facility]/ZIP Co de Phone Number [facility] [place] [address] * (ABNORMAL) POCT Glucose (05/20/2016 7:32 PM EST) Glucose, POC 204(H) 65 - 199 mg/dL [facility] Comment: Supplemental ranges: <140 mg/dL before meals <180 mg/dL all other times of the day Blood specimen (specimen) 05/20/2016 7:32 PM EST 05/20/2016 7:32 PM EST Que Amaro MD POINT OF CARE TEST ORDERABLES Performing Organization Address City/[facility]/ZIP Co de Phone Number [facility] [place] [address] * (ABNORMAL) POCT Glucose (05/20/2016 7:30 PM EST) Glucose, POC 220(H) 65 - 199 mg/dL [facility] Comment: Supplemental ranges: <140 mg/dL before meals <180 mg/dL all other times of the day Blood specimen (specimen) 05/20/2016 7:30 PM EST 05/20/2016 7:30 PM EST Que Amaro MD POINT OF CARE TEST ORDERABLES Performing Organization Address City/[facility]/ZIP Co de Phone Number [facility] [place] [address] * Specimen to Pathology (surgical or derm) (05/20/2016 7:25 PM EST) AP Specimen 05/20/2016 7:25 PM EST 05/20/2016 7:25 PM EST Narrative [facility] - 05/20/2016 7:25 PM EST Specimen requisition ordered. ??Separate Pathology report to follow Que Amaro MD PATHOLOGY/CYTO LOGY ORDERABLES Performing Organization Address City/[facility]/ZIP Co de Phone Number [facility] [place] [address] * Surgical Pathology Report (05/20/2016 7:23 PM EST) Final Diagnosis [id number] ?Location: [facility]; 0423; A The signing pathologist has (i) examined the relevant preparation(s) for the specimen(s) and (ii) rendered or confirmed the diagnosis(es). . 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 ?2. No evidence of viral inclusions. B - [place] left ureter: ?1. Benign ureter. ?2. No [...] - Left transplant kidney ureter B - [place] left ureter Clinical History: Left ureteral stricture [...] central cross- sections. ??(R2) B - ??Labeled/Fixative: [place] left ureter, fresh. Quantity/Size: Single, 8.2 x 0.4 x 0.4 cm. Tissue Description: Unoriented segment of ureter. ??The wall averages 0.2 cm in thickness. there is a stellate lumen. ??The mucosa is glistening pink-oro. . SPECIMEN PROCESSING Sections/Processing: (1) Sections from the ends of the specimen; (2) additional central cross sections. ??(R2) ??ejr 05/23/2016 9:45 AM EST [facility] URETERIC STRUCTURE / Unknown 05/20/2016 7:23 PM EST 05/20/2016 7:23 PM EST URETERIC STRUCTURE / Unknown 05/20/2016 7:23 PM EST 05/20/2016 7:23 PM EST Que Amaro MD PATHOLOGY/CYTO LOGY ORDERABLES Performing Organization Address [facility] Co de Phone Number [facility] [place] [address] * XR Fluoro No Rad <1Hr (05/20/2016 1:59 PM EST) Narrative RAD - 05/20/2016 1:59 PM EST This order does not need a radiologist interpretation. ?? Que Amaro MD IMG FLUORO ORD ERABLES Performing Organization Address [facility] Co de Phone Number [place], [place] * Differential, Automated (05/20/2016 5:47 AM EST) Neutrophil % 72.4 % [facility] Neutrophil Absolute 5.83 1.70 - 6.10 x10(3)/[facility] Lymph % 15.8 % [facility] Lymphocytes Abs 1.3 0.9 - 3.2 x10(3)/[facility] Monocyte % 6.1 % [facility] Monocyte Abs 0.5 0.3 - 0.9 x10(3)/[facility] Eos % 4.1 % [facility] Eosinophils Abs 0.3 0.0 - 0.4 x10(3)/[facility] Basophil % 1.1 % [facility] Baso Absolute 0.1 0.0 - 0.1 x10(3)/[facility] Immature Gran % 0.50 % [facility] Comment: Immature granulocytes(IG's)percentage and absolute count will include metamyelocytes, myelocytes, and promyelocytes. Blood smears from CBCs yielding IG's will be scanned manually for concordance. If this scan disagrees with the automated IG or if promyelocytes are noted, a manual differential will be performed. Immature Gran Absolute 0.04 0.00 - 0.04 x10(3)/[facility] Blood specimen (specimen) 05/20/2016 5:47 AM EST 05/20/2016 5:58 AM EST Narrative Resulting Agency Comment Spec In Lab Que Amaro MD HEMATOLOGY ORD ERABLES [facility] [place] [address] * (ABNORMAL) Hemogram (05/20/2016 5:47 AM EST) White Blood Cell 8.0 4.0 - 9.5 x10(3)/mc L [facility] Red Blood Cell 4.41(L) 4.58 - 5.54 x10(6)/mc L [facility] Hemoglobin 14.1 13.7 - 16.5 gm/dL [facility] Hematocrit 40.0(L) 40.5 - 48.5 % [facility] Mean Cell Volume 90.7 82.9 - 93.1 fL [facility] Mean Cell Hemoglobin 32.0 27.5 - 32.1 pg [facility] Mean Cell Hemoglobin Concentration 35.3 32.0 - 35.7 gm/dL [facility] Platelet 214 145 - 357 x10(3)/mc L [facility] RDW Standard Deviation 39.4 36.0 - 45.0 [facility] RDW coefficient of variation 11.9 11.4 - 13.8 % [facility] Mean Platelet Volume 8.6 7.6 - 12.9 [facility] NRBC% auto 0.0 % [facility] NRBC Absolute 0.000 0.000 - 0.000 x10(3)/mc L [facility] Blood specimen (specimen) 05/20/2016 5:47 AM EST 05/20/2016 5:58 AM EST Narrative Resulting Agency Comment Spec In Lab Que Amaro MD HEMATOLOGY ORD ERABLES [facility] [place] [address] * (ABNORMAL) Magnesium (05/20/2016 5:47 AM EST) Magnesium 0.55(L) 0.69 - 1.07 mmol/L [facility] Blood specimen (specimen) 05/20/2016 5:47 AM EST 05/20/2016 5:58 AM EST Narrative Resulting Agency Comment Spec In Lab Que Amaro MD CHEMISTRY ORDE RABLENORE [facility] [place] [address] * (ABNORMAL) Phosphorus (05/20/2016 5:47 AM EST) Phosphorus 2.4(L) 2.5 - 4.5 mg/dL [facility] Blood specimen (specimen) 05/20/2016 5:47 AM EST 05/20/2016 5:58 AM EST Narrative Resulting Agency Comment Spec In Lab Que Amaro MD CHEMISTRY ROCHELLE David Organization Address City/State/ZIP Co de Phone Number [facility] [place] [address] * Basic Metabolic Panel (non-fasting) (05/20/2016 5:47 AM EST) Glucose 150 65 - 199 mg/dL [facility] Comment:Diabetes: >=200 mg/d L plus symptoms Blood Urea Nitrogen 12 10 - 20 mg/dL [facility] Creatinine 1.14 0.80 - 1.50 mg/dL [facility] Comment: Please note that the pediatric reference intervals supplied above were not validated at [facility]. Results from pediatric patients should be interpreted in conjunction to the patient's age, height and muscle mass. Sodium 138 135 - 145 mmol/L [facility] Potassium 3.5 3.5 - 5.0 mmol/L [facility] Comment: Please note: ??Patients with WBC >100,000 may have falsely elevated Potassium levels. ??For accurate Potassium quantification in these patients send serum separator tube (gold top) for subsequent determinations. ??Contact the Clinical Chemistry Laboratory if there are any questions. Chloride 100 98 - 107 mmol/L [facility] Carbon Dioxide 24 22 - 31 mmol/L [facility] Anion Gap 14 5 - 15 mmol/L [facility] Calcium 9.0 8.5 - 10.5 mg/dL [facility] Est Glomerular [...] the following links into your internet browser. [email or web address] Blood specimen (specimen) 05/20/2016 5:47 AM EST 05/20/2016 5:58 AM EST Narrative Resulting Agency Comment Spec In Lab Que JENNINSG Performing Organization Address [facility] Co de Phone Number [facility] [place] [address] * Tacrolimus level (05/19/2016 8:00 AM EST) Tacrolimus 8.1 ng/mL [facility] Comment: Trough therapeutic: ??5-15 ng/mL Performed by ultra-performance liquid chromatography tandem mass spectrometry (UPLCMS/MS). Blood specimen (specimen) 05/19/2016 8:00 AM EST 05/19/2016 10:28 AM EST Narrative Resulting Agency Comment Spec In Lab Que JENNINGS Performing Organization Address [facility] Co de Phone Number [facility] [place] [address] * Antibody screen (05/19/2016 4:17 AM EST) Ab Screen Interp Negative [facility] Expires at [id number] on: 05/22/2016 [facility] Blood specimen (specimen) 05/19/2016 4:17 AM EST 05/19/2016 4:33 AM EST Narrative Resulting Agency Comment Spec In Lab Que Amaro MD BLOOD BANK LAB ORDERABLES Performing Organization Address [facility] Co de Phone Number [facility] [place] [address] * ABO/Rh Typing (05/19/2016 4:17 AM EST) ABORH Type AB Pos [facility] Blood specimen (specimen) 05/19/2016 4:17 AM EST 05/19/2016 4:33 AM EST Narrative Resulting Agency Comment Spec In Lab Que Amaro MD BLOOD BANK LAB ORDERABLES Performing Organization Address [facility] Co de Phone Number [facility] [place] [address] * Prothrombin Time (05/19/2016 4:17 AM EST) Prothrombin Time 13.3 12.0 - 15.0 sec [facility] Comment: An INR [...] International Normalization Ratio 1.0 0.9 - 1.1 [facility] Blood specimen (specimen) 05/19/2016 4:17 AM EST 05/19/2016 4:35 AM EST Narrative Resulting Agency Comment Spec In Lab Que Amaro MD HEMATOLOGY ORD ERABLES Performing Organization Address [facility] Co de Phone Number [facility] [place] [address] * Differential, Automated (05/19/2016 4:17 AM EST) Neutrophil % 69.8 % [facility] Neutrophil Absolute 5.19 1.70 - 6.10 x10(3)/[facility] Lymph % 18.5 % [facility] Lymphocytes Abs 1.4 0.9 - 3.2 x10(3)/[facility] Monocyte % 6.2 % [facility] Monocyte Abs 0.5 0.3 - 0.9 x10(3)/[facility] Eos % 3.9 % [facility] Eosinophils Abs 0.3 0.0 - 0.4 x10(3)/[facility] Basophil % 1.1 % [facility] Baso Absolute 0.1 0.0 - 0.1 x10(3)/[facility] Immature Gran % 0.50 % [facility] Comment: Immature granulocytes(IG's)percentage and absolute count will include metamyelocytes, myelocytes, and promyelocytes. Blood smears from CBCs yielding IG's will be scanned manually for concordance. If this scan disagrees with the automated IG or if promyelocytes are noted, a manual differential will be performed. Immature Gran Absolute 0.04 0.00 - 0.04 x10(3)/[facility] Blood specimen (specimen) 05/19/2016 4:17 AM EST 05/19/2016 4:35 AM EST Narrative Resulting Agency Comment Spec In Lab Que Amaro MD HEMATOLOGY ORD ERABLES Performing Organization Address City/State/[facility] Co de Phone Number [facility] [place] [address] * (ABNORMAL) Hemogram (05/19/2016 4:17 AM EST) White Blood Cell 7.4 4.0 - 9.5 x10(3)/ L [facility] Red Blood Cell 4.43(L) 4.58 - 5.54 x10(6)/ L [facility] Hemoglobin 14.2 13.7 - 16.5 gm/dL [facility] Hematocrit 40.2(L) 40.5 - 48.5 % [facility] Mean Cell Volume 90.7 82.9 - 93.1 fL [facility] Mean Cell Hemoglobin 32.1 27.5 - 32.1 pg [facility] Mean Cell Hemoglobin Concentration 35.3 32.0 - 35.7 gm/dL [facility] Platelet 192 145 - 357 x10(3)/ L [facility] RDW Standard Deviation 39.8 36.0 - 45.0 fL [facility] RDW coefficient of variation 11.9 11.4 - 13.8 % [facility] Mean Platelet Volume 8.9 7.6 - 12.9 fL [facility] NRBC% auto 0.0 % [facility] NRBC Absolute 0.000 0.000 - 0.000 x10(3)/mc L [facility] Blood specimen (specimen) 05/19/2016 4:17 AM EST 05/19/2016 4:35 AM EST Narrative Resulting Agency Comment Spec In Lab Que Amaro MD HEMATOLOGY ORD ERABLES Performing Organization Address [facility] Co de Phone Number [facility] [place] [address] * (ABNORMAL) Magnesium (05/19/2016 4:17 AM EST) Magnesium 0.68(L) 0.69 - 1.07 mmol/L [facility] Blood specimen (specimen) 05/19/2016 4:17 AM EST 05/19/2016 4:35 AM EST Narrative Resulting Agency Comment Spec In Lab Que Amaro MD CHEMISTRY ORDBhargav JENNINGS Performing Organization Address [facility] Co de Phone Number [facility] [place] [address] * (ABNORMAL) Phosphorus (05/19/2016 4:17 AM EST) Phosphorus 2.4(L) 2.5 - 4.5 mg/dL [facility] Blood specimen (specimen) 05/19/2016 4:17 AM EST 05/19/2016 4:35 AM EST Narrative Resulting Agency Comment Spec In Lab Que Amaro MD CHEMISTRY ROCHELLE JENNINGS Performing Organization Address [facility]/ZIP Co de Phone Number [facility] [place] [address] * (ABNORMAL) Basic Metabolic Panel (non-fasting) (05/19/2016 4:17 AM EST) Glucose 166 65 - 199 mg/dL [facility] Comment:Diabetes: >=200 mg/d L plus symptoms Blood Urea Nitrogen 11 10 - 20 mg/dL [facility] Creatinine 1.09 0.80 - 1.50 mg/dL [facility] Comment: Please note that the pediatric reference intervals supplied above were not validated at [facility]. Results from pediatric patients should be interpreted in conjunction to the patient's age, height and muscle mass. Sodium 140 135 - 145 mmol/L [facility] [...] mmol/L [facility] Carbon Dioxide 25 22 - 31 mmol/L [facility] Anion Gap 16(H) 5 - 15 mmol/L [facility] Calcium 9.0 8.5 - 10.5 mg/dL [facility] Est Glomerular [...] the following links into your internet browser. [email or web address] Blood specimen (specimen) 05/19/2016 4:17 AM EST 05/19/2016 4:35 AM EST Narrative Resulting Agency Comment Spec In Lab Que Amaro MD CHEMISTRY ORDE RABLES Performing Organization Address City/[facility]/ZIP Co de Phone Number [facility] [place] [address] * Differential, Automated (05/18/2016 5:54 AM EST) Neutrophil % 69.2 % [facility] Neutrophil Absolute 5.48 1.70 - 6.10 x10(3)/[facility] Lymph % 18.5 % [facility] Lymphocytes Abs 1.5 0.9 - 3.2 x10(3)/[facility] Monocyte % 6.6 % [facility] Monocyte Abs 0.5 0.3 - 0.9 x10(3)/[facility] Eos % 4.3 % [facility] Eosinophils Abs 0.3 0.0 - 0.4 x10(3)/[facility] Basophil % 1.1 % [facility] Baso Absolute 0.1 0.0 - 0.1 x10(3)/[facility] Immature Gran % 0.30 % [facility] Comment: Immature granulocytes(IG's)percentage and absolute count will include metamyelocytes, myelocytes, and promyelocytes. Blood smears from CBCs yielding IG's will be scanned manually for concordance. If this scan disagrees with the automated IG or if promyelocytes are noted, a manual differential will be performed. Immature Gran Absolute 0.02 0.00 - 0.04 x10(3)/[facility] Blood specimen (specimen) 05/18/2016 5:54 AM EST 05/18/2016 6:00 AM EST Narrative Resulting Agency Comment Spec In Lab Que Amaro MD HEMATOLOGY ORD AMANDABLES Performing Organization Address City/[facility]/ZIP Co de Phone Number [facility] [place] [address] * (ABNORMAL) Hemogram (05/18/2016 5:54 AM EST) White Blood Cell 7.9 4.0 - 9.5 x10(3)/[facility] Red Blood Cell 4.51(L) 4.58 - 5.54 x10(6)/mc L [facility] Hemoglobin 14.4 13.7 - 16.5 gm/dL [facility] Hematocrit 40.5 40.5 - 48.5 % [facility] Mean Cell Volume 89.8 82.9 - 93.1 [facility] Mean Cell Hemoglobin 31.9 27.5 - 32.1 pg [facility] [facility] Mean Cell Hemoglobin Concentration 35.6 32.0 - 35.7 gm/dL [facility] Platelet 205 145 - 357 x10(3)/[facility] LABORATORY RDW Standard Deviation 39.8 36.0 - 45.0 [facility] LABORATORY RDW coefficient of variation 12.1 11.4 - 13.8 % [facility] Mean Platelet Volume 8.7 7.6 - 12.9 [facility] LABORATORY NRBC% auto 0.0 % [facility] NRBC Absolute 0.000 0.000 - 0.000 x10(3)/[facility] LABORATORY Blood specimen (specimen) 05/18/2016 5:54 AM EST 05/18/2016 6:00 AM EST Narrative Resulting Agency Comment Spec In Lab Que Amaro MD HEMATOLOGY ORD ERABLES [facility] [place] [address] * (ABNORMAL) Magnesium (05/18/2016 5:54 AM EST) Pathologist [facility] Magnesium 0.68(L) 0.69 - 1.07 mmol/L [facility] Blood specimen (specimen) 05/18/2016 5:54 AM EST 05/18/2016 6:00 AM EST Narrative Resulting Agency Comment Spec In Lab Que Amaro MD CHEMISTRY ROCHELLE JENNINGS Performing Organization Address City/[facility] Co de Phone Number [facility] [place] [address] * Phosphorus (05/18/2016 5:54 AM EST) [facility] Phosphorus 2.8 2.5 - 4.5 mg/dL [facility] Blood specimen (specimen) 05/18/2016 5:54 AM EST 05/18/2016 6:00 AM EST Narrative Resulting Agency Comment Spec In Lab Que Amaro MD CHEMISTRY ROCHELLE JENNINGS Performing Organization Address [facility] de Phone Number [facility] [place] [address] * Basic Metabolic Panel (non-fasting) (05/18/2016 5:54 AM EST) [facility] Glucose 168 65 - 199 mg/dL [facility] Comment:Diabetes: >=200 mg/d L plus symptoms Blood Urea Nitrogen 11 10 - 20 mg/dL [facility] Creatinine 1.15 0.80 - 1.50 mg/dL [facility] Comment: Please note that the pediatric reference intervals supplied above were not validated at [facility]. Results from pediatric patients should be interpreted in conjunction to the patient's age, height and muscle mass. Sodium 139 135 - 145 mmol/L [facility] Potassium 3.5 3.5 - 5.0 mmol/L [facility] Comment: Please note: ??Patients with WBC >100,000 may have falsely elevated Potassium levels. ??For accurate Potassium quantification in these patients send serum separator tube (gold top) for subsequent determinations. ??Contact the Clinical Chemistry Laboratory if there are any questions. Chloride 98 98 - 107 mmol/L [facility] Carbon Dioxide 27 22 - 31 mmol/L [facility] Anion Gap 14 5 - 15 mmol/L [facility] Calcium 9.1 8.5 - 10.5 mg/dL [facility] Est Glomerular [...] the following links into your internet browser. [email or web address] Blood specimen (specimen) 05/18/2016 5:54 AM EST 05/18/2016 6:00 AM EST Narrative Resulting Agency Comment Spec In Lab Que Amaro MD CHEMISTRY ROCHELLE JENNINGS Performing Organization Address [facility] de Phone Number [facility] [place] [address] * Vancomycin, trough (05/17/2016 5:35 AM EST) Pathologist [facility] Vancomycin, Trough 16.2 mg/L [facility] Comment: Therapeutic [...] CHEMISTRY ROCHELLE JENNINGS Performing Organization Address [facility] Co de Phone Number [facility] [place] [address] * Differential, Automated (05/17/2016 5:35 AM EST) Pathologist [facility] Neutrophil % 64.3 % [facility] Neutrophil Absolute 4.39 1.70 - 6.10 x10(3)/[facility] LABORATORY Lymph % 20.2 % [facility] Lymphocytes Abs 1.4 0.9 - 3.2 x10(3)/[facility] LABORATORY Monocyte % 8.3 % [facility] Monocyte Abs 0.6 0.3 - 0.9 x10(3)/[facility] LABORATORY Eos % 5.7 % [facility] Eosinophils Abs 0.4 0.0 - 0.4 x10(3)/[facility] LABORATORY Basophil % 1.2 % [facility] Baso Absolute 0.1 0.0 - 0.1 x10(3)/[facility] LABORATORY Immature Gran % 0.30 % [facility] Comment: Immature granulocytes(IG's)percentage and absolute count will include metamyelocytes, myelocytes, and promyelocytes. Blood smears from CBCs yielding IG's will be scanned manually for concordance. If this scan disagrees with the automated IG or if promyelocytes are noted, a manual differential will be performed. Immature Gran Absolute 0.02 0.00 - 0.04 x10(3)/[facility] LABORATORY Blood specimen (specimen) 05/17/2016 5:35 AM EST 05/17/2016 5:42 AM EST Narrative Resulting Agency Comment Spec In Lab Que Amaro MD HEMATOLOGY ORD ERABLES [facility] [place] [address] * (ABNORMAL) Hemogram (05/17/2016 5:35 AM EST) Pathologist [facility] White Blood Cell 6.8 4.0 - 9.5 x10(3)/mc L [facility] Red Blood Cell 4.38(L) 4.58 - 5.54 x10(6)/mc L [facility] Hemoglobin 14.2 13.7 - 16.5 gm/dL [facility] Hematocrit 39.4(L) 40.5 - 48.5 % [facility] Mean Cell Volume 90.0 82.9 - 93.1 fL [facility] Mean Cell Hemoglobin 32.4(H) 27.5 - 32.1 pg [facility] Mean Cell Hemoglobin Concentration 36.0(H) 32.0 - 35.7 gm/dL [facility] Platelet 213 145 - 357 x10(3)/mc L [facility] RDW Standard Deviation 40.2 36.0 - 45.0 fL [facility] RDW coefficient of variation 12.2 11.4 - 13.8 % [facility] Mean Platelet Volume 8.7 7.6 - 12.9 fL [facility] NRBC% auto 0.0 % [facility] NRBC Absolute 0.000 0.000 - 0.000 x10(3)/mc L [facility] Blood specimen (specimen) 05/17/2016 5:35 AM EST 05/17/2016 5:42 AM EST Narrative Resulting Agency Comment Spec In Lab Qeu Amaro MD HEMATOLOGY ORD ERABLES Performing Organization Address [facility] Co de Phone Number [facility] [place] [address] * Magnesium (05/17/2016 5:35 AM EST) Magnesium 0.73 0.69 - 1.07 mmol/L [facility] Blood specimen (specimen) 05/17/2016 5:35 AM EST 05/17/2016 5:42 AM EST Narrative Resulting Agency Comment Spec In Lab Que Amaro MD CHEMISTRY ORDE RABLENORE Performing Organization Address City/[facility]/ZIP Co de Phone Number [facility] [place] [address] * Phosphorus (05/17/2016 5:35 AM EST) Phosphorus 2.9 2.5 - 4.5 mg/dL [facility] Blood specimen (specimen) 05/17/2016 5:35 AM EST 05/17/2016 5:42 AM EST Narrative Resulting Agency Comment Spec In Lab Que Amaro MD CHEMISTRY ROCHELLE JENNINGS [facility] [place] [address] * (ABNORMAL) Basic Metabolic Panel (non-fasting) (05/17/2016 5:35 AM EST) Glucose 164 65 - 199 mg/dL [facility] Comment:Diabetes: >=200 mg/d L plus symptoms Blood Urea Nitrogen 13 10 - 20 mg/dL [facility] Creatinine 1.23 0.80 - 1.50 mg/dL [facility] Comment: Please note that the pediatric reference intervals supplied above were not validated at [facility]. Results from pediatric patients should be interpreted in conjunction to the patient's age, height and muscle mass. Sodium 141 135 - 145 mmol/L [facility] Potassium 3.5 3.5 - 5.0 mmol/L [facility] Comment: Please note: ??Patients with WBC >100,000 may have falsely elevated Potassium levels. ??For accurate Potassium quantification in these patients send serum separator tube (gold top) for subsequent determinations. ??Contact the Clinical Chemistry Laboratory if there are any questions. Chloride 102 98 - 107 mmol/L [facility] Carbon Dioxide 26 22 - 31 mmol/L [facility] Anion Gap 13 5 - 15 mmol/L [facility] Calcium 8.9 8.5 - 10.5 mg/dL [facility] Est Glomerular Filtration Rate 59(L) >=60 [facility] LABORATORY [...] the following links into your internet browser. [email or web address] Blood specimen (specimen) 05/17/2016 5:35 AM EST 05/17/2016 5:42 AM EST Narrative Resulting Agency Comment Spec In Lab Que Amaro MD CHEMISTRY ROCHELLE JENNINGS Performing Organization Address [facility] de Phone Number [facility] [place] [address] * Tacrolimus level (05/16/2016 8:50 AM EST) Tacrolimus 5.7 ng/mL [facility] Comment: Trough therapeutic: ??5-15 ng/mL Performed by ultra-performance liquid chromatography tandem mass spectrometry (UPLCMS/MS). Blood specimen (specimen) 05/16/2016 8:50 AM EST 05/16/2016 11:43 AM EST Narrative Resulting Agency Comment Spec In Lab Que Amaro MD CHEMISTRY ROCHELLE JENNINGS Performing Organization Address [facility] de Phone Number [facility] [place] [address] * Differential, Automated (05/16/2016 6:24 AM EST) Neutrophil % 68.9 % [facility] Neutrophil Absolute 5.15 1.70 - 6.10 x10(3)/[facility] LABORATORY Lymph % 16.7 % [facility] Lymphocytes Abs 1.2 0.9 - 3.2 x10(3)/[facility] LABORATORY Monocyte % 8.2 % [facility] Monocyte Abs 0.6 0.3 - 0.9 x10(3)/[facility] LABORATORY Eos % 4.5 % [facility] Eosinophils Abs 0.3 0.0 - 0.4 x10(3)/[facility] LABORATORY Basophil % 1.3 % [facility] Baso Absolute 0.1 0.0 - 0.1 x10(3)/[facility] LABORATORY Immature Gran % 0.40 % [facility] Comment: Immature granulocytes(IG's)percentage and absolute count will include metamyelocytes, myelocytes, and promyelocytes. Blood smears from CBCs yielding IG's will be scanned manually for concordance. If this scan disagrees with the automated IG or if promyelocytes are noted, a manual differential will be performed. Immature Gran Absolute 0.03 0.00 - 0.04 x10(3)/[facility] LABORATORY Blood specimen (specimen) 05/16/2016 6:24 AM EST 05/16/2016 6:34 AM EST Narrative Resulting Agency Comment Spec In Lab Que Amaro MD HEMATOLOGY ORD ERABLES [facility] [place] [address] * (ABNORMAL) Hemogram (05/16/2016 6:24 AM EST) White Blood Cell 7.5 4.0 - 9.5 x10(3)/mc L [facility] Red Blood Cell 4.52(L) 4.58 - 5.54 x10(6)/mc L [facility] Hemoglobin 14.4 13.7 - 16.5 gm/dL [facility] Hematocrit 41.1 40.5 - 48.5 % [facility] Mean Cell Volume 90.9 82.9 - 93.1 fL [facility] Mean Cell Hemoglobin 31.9 27.5 - 32.1 pg [facility] Mean Cell Hemoglobin Concentration 35.0 32.0 - 35.7 gm/dL [facility] Platelet 215 145 - 357 x10(3)/mc L [facility] RDW Standard Deviation 40.2 36.0 - 45.0 fL [facility] RDW coefficient of variation 12.0 11.4 - 13.8 % [facility] Mean Platelet Volume 8.8 7.6 - 12.9 fL [facility] NRBC% auto 0.0 % [facility] NRBC Absolute 0.000 0.000 - 0.000 x10(3)/mc L [facility] Blood specimen (specimen) 05/16/2016 6:24 AM EST 05/16/2016 6:34 AM EST Narrative Resulting Agency Comment Spec In Lab uQe Amaro MD HEMATOLOGY ORD ERABLES Performing Organization Address [facility]/ZIP Co de Phone Number [facility] [place] [address] * (ABNORMAL) Magnesium (05/16/2016 6:24 AM EST) Magnesium 0.58(L) 0.69 - 1.07 mmol/L [facility] Blood specimen (specimen) 05/16/2016 6:24 AM EST 05/16/2016 6:34 AM EST Narrative Resulting Agency Comment Spec In Lab Que Amaro MD CHEMISTRY ORDBhargav JENNINGS [facility] [place] [address] * Phosphorus (05/16/2016 6:24 AM EST) Phosphorus 2.6 2.5 - 4.5 mg/dL [facility] Blood specimen (specimen) 05/16/2016 6:24 AM EST 05/16/2016 6:34 AM EST Narrative Resulting Agency Comment Spec In Lab Que Amaro MD CHEMISTRY ROCHELLE JENNINGS [facility] [place] [address] * (ABNORMAL) Basic Metabolic Panel (non-fasting) (05/16/2016 6:24 AM EST) Glucose 180 65 - 199 mg/dL [facility] Comment:Diabetes: >=200 mg/d L plus symptoms Blood Urea Nitrogen 11 10 - 20 mg/dL [facility] Creatinine 1.30 0.80 - 1.50 mg/dL [facility] Comment: Please note that the pediatric reference intervals supplied above were not validated at [facility]. Results from pediatric patients should be interpreted in conjunction to the patient's age, height and muscle mass. Sodium 137 135 - 145 mmol/L [facility] Potassium 3.4(L) 3.5 - 5.0 mmol/L [facility] Comment: Please note: ??Patients with WBC >100,000 may have falsely elevated Potassium levels. ??For accurate Potassium quantification in these patients send serum separator tube (gold top) for subsequent determinations. ??Contact the Clinical Chemistry Laboratory if there are any questions. Chloride 100 98 - 107 mmol/L [facility] Carbon Dioxide 24 22 - 31 mmol/L [facility] Anion Gap 13 5 - 15 mmol/L [facility] Calcium 9.0 8.5 - 10.5 mg/dL [facility] Est Glomerular Filtration Rate 55(L) >=60 [facility] [...] the following links into your internet browser. [email or web address] Blood specimen (specimen) 05/16/2016 6:24 AM EST 05/16/2016 6:34 AM EST Narrative Resulting Agency Comment Spec In Lab Que Amaro MD CHEMISTRY ORDE RABLES Performing Organization Address [facility]/ZIP Co de Phone Number [facility] [place] [address] * Urine culture (05/15/2016 3:04 PM EST) Urine Culture No growth (Less than 100 cfu/ml). [facility] Urine specimen from nephrostomy tube (specimen) 05/15/2016 3:04 PM EST 05/15/2016 4:31 PM EST Narrative Resulting Agency Comment Spec In Lab Que Amaro MD MICROBIOLOGY - GENERAL ORDERABLES Performing Organization Address [facility] Co de Phone Number [facility] [place] [address] * (ABNORMAL) Urinalysis with reflex Culture (05/15/2016 [...] [facility] pH, Urn (dipstick) 7.0 5.0 - 8.0 [facility] Blood, Urine Dipstick Small(A) Negative mg/dL [facility] Ketone, Urine Dipstick Negative Negative mg/dL [facility] Nitrite, Urine Dipstick Negative Negative [facility] Leukocytes, Urine Dipstick Small(A) Negative [facility] Appearance, Urine Dipstick Clear Clear [facility] Specific [place] Urine Automated 1.009 1.002 - 1.030 [facility] Color, Urine Dipstick Straw Yellow [facility] RBC, Urine 9(H) 0 - 3 /HPF [facility] WBC, Urine 10(H) 0 - 3 /HPF [facility] Bacteria, Urine Rare(A) None /HPF [facility] Reflex to Culture Yes [facility] Urine specimen from nephrostomy tube (specimen) 05/15/2016 3:04 PM EST 05/15/2016 3:44 PM EST Narrative Resulting Agency Comment Spec In Lab Que Amaro MD URINE ORDERABL ES Performing Organization Address [facility] de Phone Number [facility] [place] [address] * Vancomycin, trough (05/15/2016 5:50 AM EST) Vancomycin, Trough 8.9 mg/L [facility] Comment: Therapeutic [...] CHEMISTRY ORDE RABLES Performing Organization Address [facility]/ZIP Co de Phone Number [facility] [place] [address] * (ABNORMAL) Differential, Automated (05/15/2016 3:15 AM EST) Neutrophil % 72.9 % [facility] Neutrophil Absolute 6.64(H) 1.70 - 6.10 x10(3)/[facility] LABORATORY Lymph % 14.1 % [facility] Lymphocytes Abs 1.3 0.9 - 3.2 x10(3)/[facility] LABORATORY Monocyte % 7.9 % [facility] Monocyte Abs 0.7 0.3 - 0.9 x10(3)/[facility] LABORATORY Eos % 3.7 % [facility] Eosinophils Abs 0.3 0.0 - 0.4 x10(3)/[facility] LABORATORY Basophil % 1.1 % [facility] Baso Absolute 0.1 0.0 - 0.1 x10(3)/[facility] LABORATORY Immature Gran % 0.30 % [facility] Comment: Immature granulocytes(IG's)percentage and absolute count will include metamyelocytes, myelocytes, and promyelocytes. Blood smears from CBCs yielding IG's will be scanned manually for concordance. If this scan disagrees with the automated IG or if promyelocytes are noted, a manual differential will be performed. Immature Gran Absolute 0.03 0.00 - 0.04 x10(3)/[facility] LABORATORY Blood specimen (specimen) 05/15/2016 3:15 AM EST 05/15/2016 3:23 AM EST Narrative Resulting Agency Comment Spec In Lab Que Amaro MD HEMATOLOGY ORD ERABLES [facility] [place] [address] * Hemogram (05/15/2016 3:15 AM EST) White Blood Cell 9.1 4.0 - 9.5 x10(3)/[facility] LABORAT[facility] Red Blood Cell 4.58 4.58 - 5.54 x10(6)/[facility] Hemoglobin 14.7 13.7 - 16.5 gm/dL [facility] Hematocrit 41.3 40.5 - 48.5 % [facility] Mean Cell Volume 90.2 82.9 - 93.1 fL [facility] Mean Cell Hemoglobin 32.1 27.5 - 32.1 pg [facility] Mean Cell Hemoglobin Concentration 35.6 32.0 - 35.7 gm/dL [facility] Platelet 209 145 - 357 x10(3)/[facility] LABORATORY RDW Standard Deviation 40.0 36.0 - 45.0 [facility] LABORATORY RDW coefficient of variation 12.2 11.4 - 13.8 % [facility] Mean Platelet Volume 8.7 7.6 - 12.9 [facility] LAB[facility]ORY NRBC% auto 0.0 % [facility] NRBC Absolute 0.000 0.000 - 0.000 x10(3)/[facility] Blood specimen (specimen) 05/15/2016 3:15 AM EST 05/15/2016 3:23 AM EST Narrative Resulting Agency Comment Spec In Lab Que Amaro MD HEMATOLOGY ORD MILAGROS Performing Organization Address City/[facility]/ZIP Co de Phone Number [facility] [place] [address] * (ABNORMAL) Magnesium (05/15/2016 3:15 AM EST) Magnesium 0.68(L) 0.69 - 1.07 mmol/L [facility] Blood specimen (specimen) 05/15/2016 3:15 AM EST 05/15/2016 3:23 AM EST Narrative Resulting Agency Comment Spec In Lab Que Amaro MD CHEMISTRY ORDBhargav JENNINGS Performing Organization Address City/[facility]/ZIP Co de Phone Number [facility] [place] [address] * Phosphorus (05/15/2016 3:15 AM EST) Phosphorus 2.9 2.5 - 4.5 mg/dL [facility] Blood specimen (specimen) 05/15/2016 3:15 AM EST 05/15/2016 3:23 AM EST Narrative Resulting Agency Comment Spec In Lab Que Amaro MD CHEMISTRY ROCHELLE JENNINGS [facility] [place] [address] * (ABNORMAL) Basic Metabolic Panel (non-fasting) (05/15/2016 3:15 AM EST) Glucose 162 65 - 199 mg/dL [facility] Comment:Diabetes: >=200 mg/d L plus symptoms Blood Urea Nitrogen 9(L) 10 - 20 mg/dL [facility] Creatinine 1.23 0.80 - 1.50 mg/dL [facility] Comment: Please note that the pediatric reference intervals supplied above were not validated at [facility]. Results from pediatric patients should be interpreted in conjunction to the patient's age, height and muscle mass. Sodium 140 135 - 145 mmol/L [facility] Potassium 3.6 3.5 - 5.0 mmol/L [facility] Comment: Please note: ??Patients with WBC >100,000 may have falsely elevated Potassium levels. ??For accurate Potassium quantification in these patients send serum separator tube (gold top) for subsequent determinations. ??Contact the Clinical Chemistry Laboratory if there are any questions. Chloride 101 98 - 107 mmol/L [facility] Carbon Dioxide 26 22 - 31 mmol/L [facility] Anion Gap 13 5 - 15 mmol/L [facility] Calcium 9.0 8.5 - 10.5 mg/dL [facility] Est Glomerular Filtration Rate 59(L) >=60 [facility] [...] the following links into your internet browser. [email or web address] Blood specimen (specimen) 05/15/2016 3:15 AM EST 05/15/2016 3:23 AM EST Narrative Resulting Agency Comment Spec In Lab Que Amaro MD CHEMISTRY ROCHELLE JENNINGS [facility] [place] [address] * XR Chest PA or AP 1 [...] Differential, Automated (05/14/2016 6:45 AM EST) Pathologist [facility] Neutrophil % 77.5 % [facility] Neutrophil Absolute 7.24(H) 1.70 - 6.10 x10(3)/[facility] LABORATORY Lymph % 11.1 % [facility] Lymphocytes Abs 1.0 0.9 - 3.2 x10(3)/[facility] LABORATORY Monocyte % 8.4 % [facility] Monocyte Abs 0.8 0.3 - 0.9 x10(3)/[facility] LABORATORY Eos % 1.7 % [facility] Eosinophils Abs 0.2 0.0 - 0.4 x10(3)/[facility] LABORATORY Basophil % 0.9 % [facility] Baso Absolute 0.1 0.0 - 0.1 x10(3)/[facility] LABORATORY Immature Gran % 0.40 % [facility] Comment: Immature granulocytes(IG's)percentage and absolute count will include metamyelocytes, myelocytes, and promyelocytes. Blood smears from CBCs yielding IG's will be scanned manually for concordance. If this scan disagrees with the automated IG or if promyelocytes are noted, a manual differential will be performed. Immature Gran Absolute 0.04 0.00 - 0.04 x10(3)/[facility] LABORATORY Blood specimen (specimen) 05/14/2016 6:45 AM EST 05/14/2016 7:06 AM EST Narrative Resulting Agency Comment Spec In Lab Que Amaro MD HEMATOLOGY ORD ERABLES [facility] [place] [address] * (ABNORMAL) Hemogram (05/14/2016 6:45 AM EST) [facility] White Blood Cell 9.4 4.0 - 9.5 x10(3)/[facility] [facility] Red Blood Cell 4.43(L) 4.58 - 5.54 x10(6)/mc L [facility] Hemoglobin 14.2 13.7 - 16.5 gm/dL [facility] Hematocrit 41.1 40.5 - 48.5 % [facility] Mean Cell Volume 92.8 82.9 - 93.1 fL [facility] Mean Cell Hemoglobin 32.1 27.5 - 32.1 pg [facility] Mean Cell Hemoglobin Concentration 34.5 32.0 - 35.7 gm/dL [facility] Platelet 208 145 - 357 x10(3)/mc L [facility] RDW Standard Deviation 41.6 36.0 - 45.0 fL [facility] RDW coefficient of variation 12.2 11.4 - 13.8 % [facility] Mean Platelet Volume 9.0 7.6 - 12.9 fL [facility] NRBC% auto 0.0 % [facility] NRBC Absolute 0.000 0.000 - 0.000 x10(3)/mc L [facility] Blood specimen (specimen) 05/14/2016 6:45 AM EST 05/14/2016 7:06 AM EST Narrative Resulting Agency Comment Spec In Lab Que Amaro MD HEMATOLOGY ORD MILAGROS Performing Organization Address City/[facility]/ZIP [place] [address] * (ABNORMAL) Magnesium (05/14/2016 6:45 AM EST) Magnesium 0.60(L) 0.69 - 1.07 mmol/L [facility] Blood specimen (specimen) 05/14/2016 6:45 AM EST 05/14/2016 7:06 AM EST Narrative Resulting Agency Comment Spec In Lab Que Amaro MD CHEMISTRY ORDBhargav JENNINGS [facility] [place] [address] * (ABNORMAL) Phosphorus (05/14/2016 6:45 AM EST) Phosphorus 2.1(L) 2.5 - 4.5 mg/dL [facility] Blood specimen (specimen) 05/14/2016 6:45 AM EST 05/14/2016 7:06 AM EST Narrative Resulting Agency Comment Spec In Lab Que Amaro MD CHEMISTRY ROCHELLE JENNINGS [facility] [place] [address] * (ABNORMAL) Basic Metabolic Panel (non-fasting) (05/14/2016 6:45 AM EST) Pathologist [facility] Glucose 165 65 - 199 mg/dL [facility] Comment:Diabetes: >=200 mg/d L plus symptoms Blood Urea Nitrogen 12 10 - 20 mg/dL [facility] Creatinine 1.22 0.80 - 1.50 mg/dL [facility] Comment: Please note that the pediatric reference intervals supplied above were not validated at [facility]. Results from pediatric patients should be interpreted in conjunction to the patient's age, height and muscle mass. Sodium 139 135 - 145 mmol/L [facility] Potassium 3.3(L) 3.5 - 5.0 mmol/L [facility] Comment: Please note: ??Patients with WBC >100,000 may have falsely elevated Potassium levels. ??For accurate Potassium quantification in these patients send serum separator tube (gold top) for subsequent determinations. ??Contact the Clinical Chemistry Laboratory if there are any questions. Chloride 100 98 - 107 mmol/L [facility] Carbon Dioxide 25 22 - 31 mmol/L [facility] Anion Gap 14 5 - 15 mmol/L [facility] Calcium 8.8 8.5 - 10.5 mg/dL [facility] Est Glomerular Filtration Rate 59(L) >=60 [facility] [...] the following links into your internet browser. [email or web address] [email or web address] Blood specimen (specimen) 05/14/2016 6:45 AM EST 05/14/2016 7:06 AM EST Narrative Resulting Agency Comment Spec In Lab Que Amaro MD CHEMISTRY ROCHELLE JENNINGS Performing Organization Address [facility] Co de Phone Number [facility] [place] [address] * C. Difficile Screen (05/14/2016 2:30 AM EST) C Diff Interp Negative Negative [facility] [...] - GENER AL ORDERABLES Performing Organization Address [facility] Co de Phone Number [facility] [place] [address] documented in this encounter Visit Diagnoses Not [...] Provider: Monique Christian RN - Reason: Patient/family refused)2018 (Not Given - Provider: Keyana Moy RN [...] Gambino RN) 1015 (Given - Provider: Monique Christain RN) 0839 (Given - Provider: Lorena Oneal [...] Provider: Mirian Gambino RN)2034 (Given - Provider: Cmai Leonardo RN) 100 (Given - Provider: Monique [...] Christian RN) 0837 (Given - Provider: Lorena Onela, JADEN) potassium chloride 10 mEq in 100 [...] Routine 0841 (Given - Provider: Mirian Gambino RN)203 (Given - Provider: Cami Leonardo RN) 1019 (Given - Provider: Monique Christian RN)2019 (Given [...] Provider: Monique Christian RN)2327 (Given - Provider: Cmai Leonardo RN) 0415 (Given - Provider: Cami [...] Gambino RN)1708 (Given - Provider: Mirian Gambino, JADEN)2156 (Given [...] JADEN)1258 (See Alternative - Provider: Mirian Gambino, RN)1708 (See Alternative - Provider: Mirian Gambino, RN)2156 (See Alternative - Provider: Cami Leonardo RN) 0216 (See Alternative - Provider: Cami Leonardo RN)0611 (See Alternative - Provider: Cami Leonardo, JADEN)1014 (See Alternative - Provider: Monique Christian RN)1728 [...] Routine documented in this encounter Care Teams Pipe Cleaner Relationship Specialty Start Date End Date Urbano Denis DO [address] [place] [address] [address] [place] [address] PCP - General 09/03/12 03/17/22 Ruchi Valles RN Nurse Clinic Transplant Surgery 07/30/15 documented as of this encounter
--- OUTSIDE RECORDS SUMMARY | 2024-05-16 17:32 | XMS_ITS | Encounter Summary ---
Author Organization [facility] [place] [address] Care Team Providers Care Operations General Agent Name Role Phone AdeelUrbano boland Primary Care Provider Encounter Details Date Type Department Care Team (Late st Contact Info) Description 04/25/2016 Orders Only [place] [address] Samia Escalante, RN H/O kidney transplant Social [...] EST TH Visit (TeleHealth) Cardiology at [address] [address] Byron Brown MD [facility] [place] [address] 07/14/2024 10:00 AM EST Hospital Encounter Non-[place] [address] Arrived Scheduled Orders Name Type [...] * Uric acid (04/25/2016 4:04 PM EDT) [facility] Uric Acid 7.4 3.5 - 8.5 mg/dL [facility] Blood specimen (specimen) 04/25/2016 4:04 PM EDT 04/25/2016 4:10 PM EDT Narrative Resulting Agency Comment Spec In Lab Tal Eagle MD CHEMISTRY ORDERAB LES Performing Organization Address [facility]/ZIP Co de Phone Number [facility] [place] [place] [address] * Cholesterol, total (04/25/2016 4:04 PM EDT) [facility] Cholesterol, Total 125 <=199 mg/dL [facility] Comment: Recommendations of the NCEP Adult Treatment Panel for the following risk cutoff thresholds for the [place] population: Desirable: <200 mg/dL Borderline High: 200-239 mg/dL High: > or = 240 mg/dL Blood specimen (specimen) 04/25/2016 4:04 PM EDT 04/25/2016 4:10 PM EDT Narrative Resulting Agency Comment Spec In Lab Tal Eagle MD CHEMISTRY ORDERAB LES [facility] [place] [address] * (ABNORMAL) Blood culture (04/25/2016 4:03 PM EDT) Blood Culture Coagulase negative Staphylococcus species detected by PCR Isolate saved. If future testing is required, contact the Microbiology Knife Finisher. (A) [facility] Gram Stain Anaerobic Growth detected in anaerobic bottle. Gram Positive Cocci in clusters seen Results called to and read back by DR. PACK. (A) [facility] Organism Coagulase negative Staphylococcus species(A) [facility] Organism Gram Positive Cocci in clusters(A) [facility] Blood specimen (specimen) STRUCTURE OF [...] Resistant Comment:Gentamicin i s not appropriate for [place]-therapy. Coagulase Negative Staphylococcus species Levofloxacin MICROSCAN METHOD Resistant Coagulase Negative Staphylococcus species Oxacillin MICROSCAN METHOD Resistant Coagulase Negative Staphylococcus species Penicillin MICROSCAN METHOD Resistant Coagulase Negative Staphylococcus species Tetracycline MICROSCAN METHOD Sensitive Coagulase Negative Staphylococcus species Trimethoprim/Sulfa MICROSCAN METHOD Resistant Coagulase Negative Staphylococcus species Vancomycin MICROSCAN METHOD Sensitive Tal Eagle MD MICROBIOLOGY - BL OOD ORDERABLES [facility] [place] [address] documented in this encounter Visit Diagnoses Diagnosis H/O kidney transplant Kidney replaced by transplant documented in this encounter Care Teams Operations General Agent Relationship Specialty Start Date End Date Urbano Denis DO [address] [place] [address] PCP - General 09/03/12 03/17/22 Ruchi Valles RN Nurse Clinic Transplant Surgery 07/30/15 documented as of this encounter
--- OUTSIDE RECORDS SUMMARY | 2024-05-16 17:33 | XMS_ITS | Encounter Summary ---
Author Organization [facility] [place] [address] Care Team Providers Care Mud Analysis Supervisor Name Role Phone AdeelUrbano toscano Primary Care Provider Encounter Details Date Type Department Care Team (Late st Contact Info) Description 04/25/2016 Orders [place] [phone] Ellen Heller MD [facility] [place] [address] Fever, unspecified fever cause Social History Tobacco [...] AM EST Visit (TeleHealth) Cardiology at [address] [phone] Byron Brown MD [facility] [place] [address] 07/14/2024 10:00 AM EST Hospital Encounter Non-[place] [phone] Arrived documented as of this encounter Results * (ABNORMAL) Phosphorus (04/25/2016 4:04 PM EDT) Pathologist [facility] Phosphorus 2.4(L) 2.5 - 4.5 mg/dL [facility] Blood specimen (specimen) 04/25/2016 4:04 PM EDT 04/25/2016 4:10 PM EDT Narrative Resulting Agency Comment Spec In Lab Tal Eagle MD CHEMISTRY ORDERAB LES Performing Organization Address [facility]/ZIP Co de Phone Number [facility] [place] [address] * (ABNORMAL) Magnesium (04/25/2016 4:04 PM EDT) [facility] Magnesium 0.54(L) 0.69 - 1.07 mmol/L [facility] Blood specimen (specimen) 04/25/2016 4:04 PM EDT 04/25/2016 4:10 PM EDT Narrative Resulting Agency Comment Spec In Lab Tal Eagle MD CHEMISTRY ORDERAB LES Performing Organization Address [facility]/ZIP Co de Phone Number [facility] [place] [address] * (ABNORMAL) Comprehensive metabolic panel (non-fasting) (04/25/2016 4:04 PM EDT) Pathologist [facility] Glucose 139 65 - 199 mg/dL [facility] Comment:Diabetes: >=200 mg/d L plus symptoms Blood Urea Nitrogen 14 10 - 20 mg/dL [facility] Creatinine 1.53(H) 0.80 - 1.50 mg/dL [facility] Comment: Please note that the pediatric reference intervals supplied above were not validated at [facility]. Results from pediatric patients [...] 15 mmol/L [facility] Calcium 9.5 8.5 - 10.5 mg/dL [facility] Protein, Total 7.7 6.1 - 8.0 gm/dL [facility] Albumin 4.3 3.2 - 5.2 gm/dL [facility] Aspartate Aminotransferase 23 0 - 39 unit/L [facility] Alanine Aminotransferase 25 0 - 55 unit/L [facility] Alkaline Phosphatase 63 40 - 120 unit/L [facility] Bilirubin, Total 1.6(H) 0.2 - 1.3 mg/dL [facility] Bilirubin, Direct 0.3 0.0 - 0.3 mg/dL [facility] Est Glomerular Filtration Rate 46(L) >=60 [facility] Comment: This [...] the following links into your internet browser. [email or web address] Blood specimen (specimen) 04/25/2016 4:04 PM EDT 04/25/2016 4:10 PM EDT Narrative Resulting Agency Comment Spec In Lab Tal Eagle MD CHEMISTRY ORDERAB LES [facility] [place] [address] documented in this encounter Visit Diagnoses Diagnosis Fever, unspecified fever cause documented in this encounter Care Teams Mud Analysis Supervisor Relationship Specialty Start Date End Date Urbano Denis DO [address] [place] [address] PCP - General 09/03/12 03/17/22 Ruchi Valles RN Nurse Clinic Transplant Surgery 07/30/15 documented as of this encounter
--- OUTSIDE RECORDS SUMMARY | 2024-05-16 17:33 | XMS_ITS | Encounter Summary ---
Author Organization [facility] Address [facility] [place] [address] Care Team Providers Care Shipping Point Inspector Name Role Phone Urbano Denis DO Primary Care Provider + [phone] Reason for Visit * Reason Comments Follow-up Encounter Details Date Type Department Care Team (Late st Contact Info) Description 02/12/2016 7:30 AM EDT [place] [address] Santosh Arredondo MD [facility] [place] [address] Ureteral stricture of left kidney transplant Social [...] AM EST TH Visit (TeleHealth) Cardiology at [address] [phone] Byron Brown MD [facility] [place] [address] 07/14/2024 10:00 AM EST Hospital Encounter Non-Invasive [place] [address] Arrived documented as of this encounter Visit Diagnoses Diagnosis 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
--- OUTSIDE RECORDS SUMMARY | 2024-05-16 17:33 | XMS_ITS | Encounter Summary ---
[place] [address] Care Team Providers Care Die Turner Name Role Phone [place] Denis DO Primary Care Provider Reason for Referral * Diagnostic Test (Routine) - Duplicate Referral Specialty Diagnoses / Procedures Referred By Contac t Referred To Contact Radiology Diagnoses Ureteral stenosis of kidney transplant Procedures IR all procedures Sonu Restrepo MD [facility] [place] [address] [place] [address] Referral ID Status Reason Start Date Expiration Date Visits Requested Visits Authorized [id number] Duplicate Referral Specialty Service Requested 04/04/2016 04/04/2017 1 1 Reason for Visit * Diagnostic Test (Routine) - Duplicate Referral Specialty Diagnoses / Procedures Referred By Contpaula t Referred To Contact Radiology Diagnoses Ureteral stenosis of kidney transplant Procedures IR all procedures Sonu Restrepo MD [facility] [place] [place] [address] [place] [address] Referral ID Status Reason Start Date Expiration Date Visits Requested Visits Authorized [id number] Duplicate Referral Specialty Service Requested 04/04/2016 04/04/2017 1 1 Encounter Details Date Type Department Care Team (Latest Contact Info) Description 03/25/2016 11:54 AM EDT - 03/25/2016 11:59 PM EDT Hospital Encounter Radiology at [facility] [address] Santosh Ellsworth MD [facility] [place] [address] Ureteral stenosis of kidney transplant Discharge Disposition: [...] from the original note were not included. [facility] Vascular and Interventional Radiology Discharge Instructions [...] is during regular office hours, please call [phone]. If it is after regular office hours, or on weekends or holidays, please call [phone] and ask to speak to the Aquarium Tank Attendant technical applications scientist for Interventional Radiology. XXX You have received [...] Que Amaro MD at [facility] OR ??? Pro transplantation of kidney [...] at [facility] OR Medications: Current Outpatient Prescriptions on File [...] Consent: Pending - Alessandro Obando MD (Pager #[phone]) 03/24/2016 VIR PRE-PROCEDURE VIR NOTE ADDENDUM Name: [...] of : 1950 AGE 65 y.o. Address: [address] [place] [phone] (home) [phone] (work) Mobile: Telephone Information: Referring Provider: Sonu [...] Que Amaro MD at [facility] OR ??? Pro transplantation of kidney [...] at [facility] OR Date/Procedure? Med's given/comments 01/08/2015: Tunneled HD [...] AM EST Visit (TeleHealth) Cardiology at [address] [address] Byron Brown MD [facility] [place] [address] 07/14/2024 10:00 AM EST Hospital Encounter Non-[place]vasive [place] [phone] Arrived documented as of this encounter Procedures [...] was prepped and draped in supine position. Plc Engineer image obtained. Contrast injection confirmed catheter location. [...] the entire procedure) ?? Santosh Ellsworth MD [facility] IR ORDERABLES documented in this encounter Visit [...] mg documented in this encounter Care Teams Die Turner Relationship Specialty Start Date End Date Albania Denis DO [address] [place] [address] PCP - General 09/03/12 03/17/22 Hai STANLEY,Ruchi Nurse Clinic Transplant Surgery 07/30/15 documented as of this encounter
--- OUTSIDE RECORDS SUMMARY | 2024-05-16 17:33 | XMS_ITS | Encounter Summary ---
Author Organization [facility] [place] [address] Care Team Providers Care Section Leader Screen Printing Name Role Phone Urbano Denis DO Primary Care Provider [phone] Reason for Visit * Auth/Cert Specialty Diagnoses / Procedures Referred By Humberto t Referred To Contact Diagnoses Fever FEVER, S/P KIDNEY TRANSPLANT Referral ID Status Reason Start Date Expiration Date Visits Re quested Visits Authorized [id number] 1 1 Encounter Details Date Type Department Care Team (Late st Contact Info) Description 04/23/2016 11:00 AM EDT Office Visit [place] [phone] Que Amaro MD [facility] [place] [address] H/O kidney transplant Social History Tobacco Use [...] EXTREMITY performed by Que Amaro MD at [facility] OR ??? Pro transplantation of kidney N/A 09/16/2015 @KIDNEY TRANSPLANT, WITHOUT RECIPIENT NEPHRECTOMY performed by Franko Larkin MD at [facility] OR ??? Pro transplant, prep cadaver renal graft N/A 09/16/2015 @PREPARATION CADAVERIC RENAL ALLOGRAFT performed by Franko Larkin MD at [facility] OR ??? N/A 09/16/2015 ORGAN ACQUISITION RENAL, CADAVERIC performed by Franko Larkin MD at [facility] OR Social History Social [...] was prepped and drapedin supine position. [employer] Crm Developer image obtained. Contrast injection confirmed catheter location. [...] EST TH Visit (TeleHealth) Cardiology at [address] [phone] Byron Brown MD [facility] [place] [place] [address] 07/14/2024 10:00 AM EST Hospital Encounter Non-Invasive [place] [address] Arrived documented as of [...] (Bezet) 448 ms MUSE SYSTEM Calculated P [place] 39 degrees MUSE SYSTEM Calculated R [place] -54 degrees MUSE SYSTEM Calculated T [place] -9 degrees MUSE SYSTEM INTERPRETATION Sinus rhythm [...] transplant documented in this encounter Care Teams Section Leader Screen Printing Relationship Specialty Start Date End Date Urbano Denis DO [address] [place] [address] PCP - General 09/03/12 03/17/22 Ruchi Valles RN Nurse Clinic Transplant Surgery 07/30/15 documented as of this encounter
--- OUTSIDE RECORDS SUMMARY | 2024-05-16 17:33 | XMS_ITS | Encounter Summary ---
Author Organization [facility] [place] [address] Care Team Providers Care Deputy Sheriff Lieutenant Name Role Phone AdeelUrbano toscano Primary Care Provider [phone] Reason for Visit * Reason Onset Date Comments Medication Refill 03/20/2016 Encounter Details Date Type Department Care Team (Late st Contact Info) Description 03/20/2016 Refill [place] [phone] Samia Escalante, RN Social History Tobacco Use [...] EST TH Visit (TeleHealth) Cardiology at [address] [phone] Byron Brown MD [facility] [place] [address] 07/14/2024 10:00 AM EST Hospital Encounter Non-Invasive [place] [address] Arrived documented as of this encounter Visit Diagnoses Not on filedocumented in this encounter Care Teams Deputy Sheriff Lieutenant Relationship Specialty Start Date End Date Urbano Denis DO [address] [place] [address] PCP - General 09/03/12 03/17/22 Ruchi Valles RN Nurse Clinic Transplant Surgery 07/30/15 documented as of this encounter
--- OUTSIDE RECORDS SUMMARY | 2024-05-16 17:33 | XMS_ITS | Encounter Summary ---
Author Organization [facility] [place] [address] Care Team Providers Care C Python Developer Name Role Phone AdeelUrbano boland Primary Care Provider Encounter Details Date Type Department Care Team (Late st Contact Info) Description 02/20/2016 Notes Only Infectious Disease at [facility] [place] [address] Es Arreaga, RN Social History Tobacco Use [...] AM EST Visit (TeleHealth) Cardiology at [address] [phone] Byron Brown MD [facility] [place] [address] 07/14/2024 10:00 AM EST Hospital Encounter Non-[place] [phone] Arrived documented as of this encounter Visit Diagnoses Not on filedocumented in this encounter Care Teams C Python Developer Relationship Specialty Start Date End Date Urbano Denis DO [address] [place] [address] PCP - General 09/03/12 03/17/22 Ruchi Valles RN Nurse Clinic Transplant Surgery 07/30/15 documented as of this encounter
--- OUTSIDE RECORDS SUMMARY | 2024-05-16 17:33 | XMS_ITS | Encounter Summary ---
[place] [address] Care Team Providers Care Cat Tender Name Role Phone Urbano Denis DO Primary Care Provider Reason for Visit * Reason Onset Date Comments Other 04/07/2016 Encounter Details Date Type Department Care Team (Late st Contact Info) Description 04/07/2016 Telephone [place] [phone] Xiomy Rush, RN Other Social History Tobacco [...] EST TH Visit (TeleHealth) Cardiology at [address] [phone] Byron Brown MD [facility] [place] [address] 07/14/2024 10:00 AM EST Hospital Encounter Non-[place] [phone] Arrived documented as of this encounter Visit Diagnoses Not on filedocumented in this encounter Care Teams Cat Tender Relationship Specialty Start Date End Date Urbano Denis DO [address] [place] [address] [address] PCP - General 09/03/12 03/17/22 Ruchi Valles RN Nurse Clinic Transplant Surgery 07/30/15 documented as of this encounter
--- OUTSIDE RECORDS SUMMARY | 2024-05-16 17:33 | XMS_ITS | Encounter Summary ---
Author Organization Formerly [facility] [place] [address] Care Team Providers Care Medical Oncologist Name Role Phone Urbano Denis DO Primary Care Provider Encounter Details Date Type Department Care Team (Latest Contact Info) Description 03/25/2016 9:30 AM EDT Laboratory Appointment Lab [address] [place] [address] Kidney replaced by transplant; Hypothyroidism, [...] EST TH Visit (TeleHealth) Cardiology at [address] [address] Byron Brown MD [facility] [place] [address] 07/14/2024 10:00 AM EST Hospital Encounter Non[place] [address] Arrived documented as of this encounter Procedures [...] Quant Blood Result (03/25/2016 9:59 AM EDT) [facility] BKV Blood Result Not Detected [facility] DNA isolated from plasma was performed using [employer] (EBTH) BKV (ASR) reagents and the Applied Avaamo 7500 FAST Real-Time PCR System. In addition, the ??PCR product sequence is confirmed using physical properties (melting curve analysis). This test was developed and its performance determined by the [facility] Molecular Pathology Laboratory. It has not been cleared or approved by the U.S. Food and Drug Administration. This test is used for clinical purposes and should not be considered investigational or for research purposes. The Molecular Pathology Laboratory is certified by the Clinical Laboratory Improvement Act of 1988 and as such is allowed to perform high complexity clinical testing. [facility] Comment: [VERIFIED DATE]04.08.16 Verified By:Fatemeh Garcia (Electronic Signature) Blood specimen (specimen) 03/25/2016 9:59 AM EDT 03/25/2016 10:54 AM EDT Narrative Resulting Agency Comment Spec In Lab Que Amaro MD HEMATOLOGY ORD ERABLES [facility] [place] [address] * Differential, Automated (03/25/2016 9:59 AM EDT) [facility] Neutrophil % 67.0 % [facility] Neutrophil Absolute 4.46 1.70 - 6.10 x10(3)/mcL [facility] Lymph % 22.9 % [facility] Lymphocytes Abs 1.5 0.9 - 3.2 x10(3)/[facility] Monocyte % 4.8 % [facility] Monocyte Abs 0.3 0.3 - 0.9 x10(3)/[facility] Eos % 3.6 % [facility] Eosinophils Abs 0.2 0.0 - 0.4 x10(3)/[facility] Basophil % 1.3 % [facility] Baso Absolute 0.1 0.0 - 0.1 x10(3)/[facility] Immature Gran % 0.40 % [facility] Comment: Immature granulocytes(IG's)percentage and absolute count will include metamyelocytes, myelocytes, and promyelocytes. Blood smears from CBCs yielding IG's will be scanned manually for concordance. If this scan disagrees with the automated IG or if promyelocytes are noted, a manual differential will be performed. Immature Gran Absolute 0.03 0.00 - 0.04 x10(3)/[facility] Blood specimen (specimen) 03/25/2016 9:59 AM EDT 03/25/2016 10:12 AM EDT Narrative Resulting Agency Comment Spec In Lab Tal Eagle MD HEMATOLOGY ORDERA BLES [facility] [place] [address] * (ABNORMAL) Hemogram (03/25/2016 9:59 AM EDT) White Blood Cell 6.7 4.0 - 9.5 x10(3)/[facility] Red Blood Cell 4.96 4.58 - 5.54 x10(6)/[facility] Hemoglobin 16.0 13.7 - 16.5 gm/dL [facility] Hematocrit 47.0 40.5 - 48.5 % [facility] Mean Cell Volume 94.8(H) 82.9 - 93.1 fL [facility] Mean Cell Hemoglobin 32.3(H) 27.5 - 32.1 pg [facility] Mean Cell Hemoglobin Concentration 34.0 32.0 - 35.7 gm/dL [facility] Platelet 247 145 - 357 x10(3)/mc L [facility] RDW Standard Deviation 48.3(H) 36.0 - 45.0 fL [facility] RDW coefficient of variation 13.9(H) 11.4 - 13.8 % [facility] Mean Platelet Volume 9.2 7.6 - 12.9 [facility] NRBC% auto 0.0 % [facility] NRBC Absolute 0.000 0.000 - 0.000 x10(3)/mc L [facility] Blood specimen (specimen) 03/25/2016 9:59 AM EDT 03/25/2016 10:12 AM EDT Narrative Resulting Agency Comment Spec In Lab Tal Eagle MD HEMATOLOGY ORDERA BLES Performing Organization Address City/[facility]/ZIP Co de Phone Number [facility] [place] [address] * Tacrolimus level (03/25/2016 9:59 AM EDT) Tacrolimus 6.5 ng/mL [facility] Comment: Trough therapeutic: ??5-15 ng/mL Performed by ultra-performance liquid chromatography tandem mass spectrometry (UPLCMS/MS). Blood specimen (specimen) 03/25/2016 9:59 AM EDT 03/25/2016 11:14 AM EDT Narrative Resulting Agency Comment Spec In Lab Que Amaro MD CHEMISTRY ROCHELLE JENNINGS Performing Organization Address City/[facility]/ZIP Co de Phone Number [facility] [place] [address] * (ABNORMAL) TSH (03/25/2016 9:59 AM EDT) Thyroid Stimulating Hormone 5.38(H) 0.27 - 4.20 mcIU/mL [facility] Blood specimen (specimen) 03/25/2016 9:59 AM EDT 03/25/2016 10:12 AM EDT Narrative Resulting Agency Comment Spec In Lab Que Amaro MD CHEMISTRY ROCHELLE JENNINGS [facility] [place] [address] * (ABNORMAL) Comprehensive metabolic panel (non-fasting) (03/25/2016 9:59 AM EDT) Glucose 152 65 - 199 mg/dL [facility] Comment:Diabetes: >=200 mg/d L plus symptoms Blood Urea Nitrogen 18 10 - 20 mg/dL [facility] Creatinine 1.65(H) 0.80 - 1.50 mg/dL [facility] Comment: Please note that the pediatric reference intervals supplied above were not validated at [facility]. Results from pediatric patients should be interpreted in conjunction to the patient's age, height and muscle mass. Sodium 139 135 - 145 mmol/L [facility] Potassium 4.7 3.5 - 5.0 mmol/L [facility] Comment: Please note: ??Patients with WBC >100,000 may have falsely elevated Potassium levels. ??For accurate Potassium quantification in these patients send serum separator tube (gold top) for subsequent determinations. ??Contact the Clinical Chemistry Laboratory if there are any questions. Chloride 97(L) 98 - 107 mmol/L [facility] Carbon Dioxide 25 22 - 31 mmol/L [facility] Anion Gap 17(H) 5 - 15 mmol/L [facility] Calcium 10.0 8.5 - 10.5 mg/dL [facility] Protein, Total 7.8 6.1 - 8.0 gm/dL [facility] Albumin 4.4 3.2 - 5.2 gm/dL [facility] Aspartate Aminotransferase 30 0 - 39 unit/L [facility] Alanine Aminotransferase 28 0 - 55 unit/L [facility] Alkaline Phosphatase 61 40 - 120 unit/L [facility] Bilirubin, Total 1.6(H) 0.2 - 1.3 mg/dL [facility] Bilirubin, Direct 0.4(H) 0.0 - 0.3 mg/dL [facility] Est Glomerular Filtration Rate 42(L) >=60 [facility] Comment: [...] the following links into your internet browser. [email or web address] Blood specimen (specimen) 03/25/2016 9:59 AM EDT 03/25/2016 10:12 AM EDT Narrative Resulting Agency Comment Spec In Lab Tal Eagle MD CHEMISTRY ORDERAB LES Performing Organization Address City/[facility]/ZIP Co de Phone Number [facility] [place] [address] * (ABNORMAL) Magnesium (03/25/2016 9:59 AM EDT) Magnesium 0.66(L) 0.69 - 1.07 mmol/L [facility] Blood specimen (specimen) 03/25/2016 9:59 AM EDT 03/25/2016 10:12 AM EDT Narrative Resulting Agency Comment Spec In Lab Tal Egale MD CHEMISTRY ORDERAB LES Performing Organization Address City/[facility]/ZIP Co de Phone Number [facility] [address] * Phosphorus (03/25/2016 9:59 AM EDT) Phosphorus 2.7 2.5 - 4.5 mg/dL [facility] Blood specimen (specimen) 03/25/2016 9:59 AM EDT 03/25/2016 10:12 AM EDT Narrative Resulting Agency Comment Spec In Lab Tal Eagle MD CHEMISTRY ORDERAB LES Performing Organization Address [facility] Co de Phone Number [facility] [place] [address] * (ABNORMAL) Uric acid (03/25/2016 9:59 AM EDT) Pathologist [facility] Uric Acid 9.3(H) 3.5 - 8.5 mg/dL [facility] Blood specimen (specimen) 03/25/2016 9:59 AM EDT 03/25/2016 10:12 AM EDT Narrative Resulting Agency Comment Spec In Lab Tal Eagle MD CHEMISTRY ORDERAB LES Performing Organization Address [facility] Co de Phone Number [facility] [place] [address] * Reticulocyte Count (03/25/2016 9:59 AM EDT) [facility] Reticulocyte % 2.0 0.7 - 2.6 % [facility] Retic Abs # 0.100 0.030 - 0.120 x10(6)/mcL [facility] Immature Retic% 5.7 0.0 - 15.6 % [facility] Reticulated Hgb 37.9 31.3 - 40.2 pg [facility] Blood specimen (specimen) 03/25/2016 9:59 AM EDT 03/25/2016 10:12 AM EDT Narrative Resulting Agency Comment Spec In Lab Tal Eagle MD HEMATOLOGY ORDERA BLES Performing Organization Address [facility] Co de Phone Number [facility] [place] [address] * Cholesterol, total (03/25/2016 9:59 AM EDT) Cholesterol, Total 145 <=199 mg/dL [facility] Comment: Recommendations of the NCEP Adult Treatment Panel for the following risk cutoff thresholds for the [place] population: Desirable: <200 mg/dL Borderline High: 200-239 mg/dL High: > or = 240 mg/dL Blood specimen (specimen) 03/25/2016 9:59 AM EDT 03/25/2016 10:12 AM EDT Narrative Resulting Agency Comment Spec In Lab Tal Eagle MD CHEMISTRY ORDERAB LES Performing Organization Address [facility] Co de Phone Number [facility] [place] [address] * (ABNORMAL) Urine culture (03/25/2016 9:57 AM EDT) Urine Culture 1,000-9,000 cfu/ml Gram Positive organisms , probable contaminant(A ) [facility] Urine specimen (specimen) 03/25/2016 9:57 AM EDT 03/25/2016 10:44 AM EDT Narrative Resulting Agency Comment Spec In Lab Que Amaro MD MICROBIOLOGY - GENERAL ORDERABLES Performing Organization Address [facility] Co de Phone Number [facility] [place] [address] * (ABNORMAL) Urinalysis with reflex Culture (03/25/2016 9:57 AM EDT) Glucose, Urine Dipstick Negative Negative mg/dL [facility] Protein, Urine Dipstick 30(A) Negative mg/dL [facility] Leukocytes, Urine Dipstick Small(A) Negative [facility] Appearance, Urine Dipstick Clear Clear [facility] Specific [place] Urine Automated 1.024 1.002 - 1.030 [facility] Color, Urine Dipstick Yellow Yellow [facility] RBC, Urine 2 0 - 3 /HPF [facility] WBC, Urine 13(H) 0 - 3 /HPF [facility] Bacteria, Urine Rare(A) None /HPF [facility] Squamous Epithelial Cells, Urine <1 <=4 /HPF [facility] Renal Epithelial Cells, Urine <1(H) <=0 /HPF [facility] Reflex to Culture Yes [facility] Urine specimen (specimen) 03/25/2016 9:57 AM EDT 03/25/2016 10:06 AM EDT Narrative Resulting Agency Comment Spec In Lab Que Amaro MD URINE ORDERABL ES [facility] [place] [address] * (ABNORMAL) Protein/Creatinine Ratio, urine (03/25/2016 9:57 AM EDT) Creatinine, Urine 137 mg/dL [facility] Protein, Urine 40(H) 0 - 12 mg/dL [facility] Protein / Creatinine Ratio, Urine 0.3 ratio [facility] Urine specimen (specimen) 03/25/2016 9:57 AM EDT 03/25/2016 10:01 AM EDT Narrative Resulting Agency Comment Spec In Lab Tal Eagle MD URINE ORDERABLES [facility] [place] [address] documented in this encounter Visit Diagnoses Diagnosis Kidney replaced by transplant Hypothyroidism, unspecified type documented in this encounter Care Teams Medical Oncologist Relationship Specialty Start Date End Date Urbano Denis DO [address] [place] [address] PCP - General 09/03/12 03/17/22 Ruchi Valles RN Nurse Clinic Transplant Surgery 07/30/15 documented as of this encounter
--- OUTSIDE RECORDS SUMMARY | 2024-05-16 17:33 | XMS_ITS | Encounter Summary ---
Author Organization [facility] [place] [address] Care Team Providers Care Automobile Parts Assembler Name Role Phone AdeelUrbano boland Primary Care Provider Encounter Details Date Type Department Care Team (Late st Contact Info) Description 02/08/2016 Notes Only Infectious Disease at [facility] [place] [address] Es Arreaga, RN Social History Tobacco Use [...] 10-15. I called the Infusion Suite @ [facility] and asked them to please decrease the dose to Vanco 1.25 gms IV q24h. Cr 1.87 up from 1.36. This is per order Dr Dina Moon. documented in this encounter Plan of Treatment Upcoming Encounters Date Type Department Care Team (Late st Contact Info) Description 06/22/2024 11:00 AM EST TH Visit (TeleHealth) Cardiology at [address] [address] Byron Brown MD [facility] [place] [address] 07/14/2024 10:00 AM EST Hospital Encounter Non-Invasive [place] [phone] Arrived documented as of this encounter Visit Diagnoses Not on filedocumented in this encounter Care Teams Automobile Parts Assembler Relationship Specialty Start Date End Date Urbano Denis DO [facility] [address] [address] PCP - General 09/03/12 03/17/22 Hai STANLEY,Ruchi Nurse Clinic Transplant Surgery 07/30/15 documented as of this encounter
--- OUTSIDE RECORDS SUMMARY | 2024-05-16 17:33 | XMS_ITS | Encounter Summary ---
Author Organization [facility] Joel [facility] [place] [address] Care Team Providers Care Loaf Counter Name Role Phone AdeelUrbano toscano Primary Care Provider Encounter Details Date Type Department Care Team (Late st Contact Info) Description 02/26/2016 Notes Only Infectious Disease at [facility] [place] [address] Es Arreaga, RN Social History Tobacco Use [...] EST TH Visit (TeleHealth) Cardiology at [address] [address] Byron Brown MD [facility] [place] [address] 07/14/2024 10:00 AM EST Hospital Encounter Non-Invasive [place] [address] Arrived documented as of this encounter Visit Diagnoses Not on filedocumented in this encounter Care Teams Loaf Counter Relationship Specialty Start Date End Date Urbano Denis DO [address] [place] [address] [address] [facility] [address] [place] [address] PCP - General 09/03/12 03/17/22 Ruchi Valles RN Nurse Clinic Transplant Surgery 07/30/15 documented as of this encounter
--- OUTSIDE RECORDS SUMMARY | 2024-05-16 17:33 | XMS_ITS | Encounter Summary ---
Author Organization [facility] [place] [address] Care Team Providers Care Contact Lens Assistant Name Role Phone Urbano Denis DO Primary Care Provider [phone] Reason for Visit * Reason Comments Follow-up * Auth/Cert Specialty Diagnoses / Procedures Referred By Humberto flor Referred To Contact Diagnoses Fever FEVER, S/P KIDNEY TRANSPLANT Referral ID Status Reason Start Date Expiration Date Visits Re quested Visits Authorized [id number] 1 1 Encounter Details Date Type Department Care Team (Late st Contact Info) Description 04/23/2016 2:20 PM EDT [place] [address] Santosh Arredondo MD [facility] [place] [address] Ureteral stricture of left kidney transplant Social [...] ??? Hematuria PSHx Bilateral inguinal hernias with [id number] Shoulder surgery Knee arthroscopy Vasectomy Medications: Reviewed [...] we will consider a ureteroureterostomy using his st. croix ureter (would require a left nephrectomy). We [...] 11:00 AM EST Visit (TeleHealth) Cardiology at [address] [phone] Byron Brown MD [facility] [place] [address] 07/14/2024 10:00 AM EST Hospital Encounter Non-[place] [address] Arrived documented as of this encounter Visit Diagnoses Diagnosis Ureteral stricture of left kidney transplant Complications of transplanted kidney documented in this encounter Care Teams Contact Lens Assistant Relationship Specialty Start Date End Date Urbano Denis DO [address] [place] [address] PCP - General 09/03/12 03/17/22 Ruchi Valles RN Nurse Clinic Transplant Surgery 07/30/15 documented as of this encounter
--- OUTSIDE RECORDS SUMMARY | 2024-05-16 17:33 | XMS_ITS | Encounter Summary ---
Author Organization [facility] [place] [address] Care Team Providers Care Behavioral Health Care Coordinator Name Role Phone Adeel Urbano KIRBY Primary Care Provider Encounter Details Date Type Department Care Team (Late st Contact Info) Description 03/13/2016 Telephone Solid [place] [address] Marisela Metcalf, RN Social History Tobacco Use [...] EST TH Visit (TeleHealth) Cardiology at [address] [phone] Byron Brown MD [facility] [place] [address] 07/14/2024 10:00 AM EST Hospital Encounter Non-[place] [address] Arrived documented as of this encounter Visit Diagnoses Not on filedocumented in this encounter Care Teams Behavioral Health Care Coordinator Relationship Specialty Start Date End Date Urbano Denis DO [address] [place] [address] PCP - General 09/03/12 03/17/22 Ruchi Valles RN Nurse Clinic Transplant Surgery 07/30/15 documented as of this encounter
--- OUTSIDE RECORDS SUMMARY | 2024-05-16 17:33 | XMS_ITS | Encounter Summary ---
Author Organization [facility] [place] [address] Care Team Providers Care Visual Supervisor Name Role Phone Urbano Denis DO Primary Care Provider + [phone] Reason for Visit * Consultation (Routine) - Closed Specialty Diagnoses / Procedures Referred By Humberto flor Referred To Contact Infectious Diseases Diagnoses Bacteremia Dina Moon [facility] [place] [address] [place] [facility] [place] [address] Referral ID Status Reason Start Date Expiration Date V isits Requested Visits Authorized [id number] Closed Assume Subset of Care 02/04/2016 02/03/2017 1 1 Encounter Details Date Type Department Care Team (Late st Contact Info) Description 02/15/2016 10:30 AM EDT Office Visit [place] [address] Dina Moon [facility] [place] [address] Bacteremia; Pyelonephritis, acute; 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 Social History Tobacco [...] pain over kidney, getting antibiotics daily at [facility] through PICC, seen by transplant and [...] EST TH Visit (TeleHealth) Cardiology at [address] [phone] Byron Brown MD [facility] [place] [address] 07/14/2024 10:00 AM EST Hospital Encounter Non[place] [phone] Arrived Scheduled Referrals Name Type Priority Associated Diagnoses Order Schedule OPAT: Order / Recommendation for Post Discharge IV Antibiotic Management Outpatient Referral Routine Bacteremia Ordered: 02/04/2016 documented as of this encounter Visit Diagnoses Diagnosis Bacteremia Pyelonephritis, acute Acute pyelonephritis without lesion of renal medullary necrosis 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
--- OUTSIDE RECORDS SUMMARY | 2024-05-16 17:33 | XMS_ITS | Encounter Summary ---
[facility] Organization [facility] [place] [address] Care Team Providers Care Nurse Discharge Name Role Phone Urbano Denis DO Primary Care Provider [phone] Reason for Visit * Auth/Cert Specialty Diagnoses / Procedures Referred By Humberto t Referred To Contact Diagnoses Fever FEVER, S/P KIDNEY TRANSPLANT Referral ID Status Reason Start Date Expiration Date Visits Re quested Visits Authorized [id number] 1 1 Encounter Details Date Type Department Care Team (Latest Contact Info) Description 04/25/2016 3:20 PM EDT Laboratory Appointment Lab [address] [place] [address] Fever, unspecified fever cause; H/O [...] EST TH Visit (TeleHealth) Cardiology at [address] [address] Byron Brown MD [facility] [address] 07/14/2024 10:00 AM EST Hospital Encounter Non-[place] [address] Arrived documented as of this [...] species 10,000-49,000 cfu/ml mixed mucosal gareth (A) [facility] Organism Coagulase negative Staphylococcus species(A) [facility] Urine specimen (specimen) 04/25/2016 4:07 [...] Resistant Comment:Gentamicin i s not appropriate for Angelina-therapy. Coagulase Negative Staphylococcus species Levofloxacin MICROSCAN METHOD Resistant Coagulase Negative Staphylococcus species Nitrofurantoin MICROSCAN METHOD Sensitive Coagulase Negative Staphylococcus species Oxacillin MICROSCAN METHOD Resistant Coagulase Negative Staphylococcus species Penicillin MICROSCAN METHOD Resistant Coagulase Negative Staphylococcus species Tetracycline MICROSCAN METHOD Sensitive Coagulase Negative Staphylococcus species Trimethoprim/Sulfa MICROSCAN METHOD Resistant Coagulase Negative Staphylococcus species Vancomycin MICROSCAN METHOD Sensitive Tal Eagle MD MICROBIOLOGY - [facility] ORDERABLES [facility] [place] [id number] * (ABNORMAL) Urinalysis with reflex Culture (04/25/2016 [...] HOSPITAL LABORATORY Leukocytes, Urine Dipstick Small(A) Negative [facility] Appearance, Urine Dipstick Clear Clear [facility] Specific [place] Urine Automated 1.024 1.002 - 1.030 [facility] Color, Urine Dipstick Yellow Yellow [facility] RBC, Urine 44(H) 0 - 3 /HPF [facility] WBC, Urine 16(H) 0 - 3 /HPF [facility] Reflex to Culture Yes [facility] Urine specimen (specimen) Urine / Unknown 04/25/2016 4:07 PM EDT 04/25/2016 4:20 PM EDT Narrative Resulting Agency Comment Spec In Lab Tal Eagle MD URINE ORDERABLES Performing Organization Address City/State/[facility] Co de Phone Number [facility] [place] [address] * (ABNORMAL) Differential, Automated (04/25/2016 4:04 PM EDT) Neutrophil % 83.7 % [facility] Neutrophil Absolute 6.31(H) 1.70 - 6.10 x10(3)/mc L [facility] Lymph % 8.8 % [facility] Lymphocytes Abs 0.7(L) 0.9 - 3.2 x10(3)/mc L [facility] Monocyte % 5.3 % [facility] Monocyte Abs 0.4 0.3 - 0.9 x10(3)/mc L [facility] Eos % 0.8 % [facility] Eosinophils Abs 0.1 0.0 - 0.4 x10(3)/mc L [facility] Basophil % 0.7 % [facility] Baso Absolute 0.0 0.0 - 0.1 x10(3)/mc L [facility] Immature Gran % 0.70 % [facility] Comment: Immature granulocytes(IG's)percentage and absolute count will include metamyelocytes, myelocytes, and promyelocytes. Blood smears from CBCs yielding IG's will be scanned manually for concordance. If this scan disagrees with the automated IG or if promyelocytes are noted, a manual differential will be performed. Immature Gran Absolute 0.05(H) 0.00 - 0.04 x10(3)/ L [facility] Blood specimen (specimen) 04/25/2016 4:04 PM EDT 04/25/2016 4:10 PM EDT Narrative Resulting Agency Comment Spec In Lab Tal Eagle MD HEMATOLOGY ORDERA BLES [facility] [place] [address] * (ABNORMAL) Hemogram (04/25/2016 4:04 PM EDT) White Blood Cell 7.5 4.0 - 9.5 x10(3)/ L [facility] Red Blood Cell 5.10 4.58 - 5.54 x10(6)/ L [facility] Hemoglobin 16.5 13.7 - 16.5 gm/dL [facility] Hematocrit 47.9 40.5 - 48.5 % [facility] Mean Cell Volume 93.9(H) 82.9 - 93.1 fL [facility] Mean Cell Hemoglobin 32.4(H) 27.5 - 32.1 pg [facility] Mean Cell Hemoglobin Concentration 34.4 32.0 - 35.7 gm/dL [facility] Platelet 218 145 - 357 x10(3)/mc L [facility] RDW Standard Deviation 44.3 36.0 - 45.0 [facility] RDW coefficient of variation 12.9 11.4 - 13.8 % [facility] Mean Platelet Volume 8.9 7.6 - 12.9 [facility] NRBC% auto 0.0 % [facility] NRBC Absolute 0.000 0.000 - 0.000 x10(3)/mc L [facility] Blood specimen (specimen) 04/25/2016 4:04 PM EDT 04/25/2016 4:10 PM EDT Narrative Resulting Agency Comment Spec In Lab Tal Eagle MD HEMATOLOGY ORDERA BLES [facility] [place] [address] * Uric acid (04/25/2016 4:04 PM EDT) Pathologist [facility] Uric Acid 7.4 3.5 - 8.5 mg/dL [facility] Blood specimen (specimen) 04/25/2016 4:04 PM EDT 04/25/2016 4:10 PM EDT Narrative Resulting Agency Comment Spec In Lab Tal Eagle MD CHEMISTRY ORDERAB LES Performing Organization Address [facility]/ZIP Co de Phone Number [facility] [place] [address] * Cholesterol, total (04/25/2016 4:04 PM EDT) [facility] Cholesterol, Total 125 <=199 mg/dL [facility] Comment: Recommendations of the NCEP Adult Treatment Panel for the following risk cutoff thresholds for the [place] population: Desirable: <200 mg/dL Borderline High: 200-239 mg/dL High: > or = 240 mg/dL Blood specimen (specimen) 04/25/2016 4:04 PM EDT 04/25/2016 4:10 PM EDT Narrative Resulting Agency Comment Spec In Lab Tal Eagle MD CHEMISTRY ORDERAB LES Performing Organization Address City/[facility]/ZIP Co de Phone Number [facility] [place] [address] * (ABNORMAL) Phosphorus (04/25/2016 4:04 PM EDT) Phosphorus 2.4(L) 2.5 - 4.5 mg/dL [facility] Blood specimen (specimen) 04/25/2016 4:04 PM EDT 04/25/2016 4:10 PM EDT Narrative Resulting Agency Comment Spec In Lab Tal Eagle MD CHEMISTRY ORDERAB LES Performing Organization Address [facility]/ZIP Co de Phone Number [facility] [place] [address] * (ABNORMAL) Magnesium (04/25/2016 4:04 PM EDT) Magnesium 0.54(L) 0.69 - 1.07 mmol/L [facility] Blood specimen (specimen) 04/25/2016 4:04 PM EDT 04/25/2016 4:10 PM EDT Narrative Resulting Agency Comment Spec In Lab Tal Eagle MD CHEMISTRY ORDERAB LES Performing Organization Address [facility]/ZIP Co de Phone Number [facility] [place] [address] * (ABNORMAL) Comprehensive metabolic panel (non-fasting) (04/25/2016 4:04 PM EDT) Glucose 139 65 - 199 mg/dL [facility] Comment:Diabetes: >=200 mg/d L plus symptoms Blood Urea Nitrogen 14 10 - 20 mg/dL [facility] Creatinine 1.53(H) 0.80 - 1.50 mg/dL [facility] Comment: Please note that the pediatric reference intervals supplied above were not validated at [facility]. Results from pediatric patients should [...] the following links into your internet browser. [email or web address] Blood specimen (specimen) 04/25/2016 4:04 PM EDT 04/25/2016 4:10 PM EDT Narrative Resulting Agency Comment Spec In Lab Tal Eagle MD CHEMISTRY ORDERAB LES [facility] [place] [address] * (ABNORMAL) Blood culture (04/25/2016 4:03 PM EDT) Blood Culture Coagulase negative Staphylococcus species detected by PCR Isolate saved. If future testing is required, contact the Microbiology Antisqueak Chalker. (A) [facility] Gram Stain Anaerobic Growth detected in anaerobic bottle. Gram Positive Cocci in clusters seen Results called to and read back by DR. PACK. (A) [facility] Organism Coagulase negative Staphylococcus species(A) [facility] Organism Gram Positive Cocci in clusters(A) [facility] Blood specimen (specimen) STRUCTURE OF [...] Resistant Comment:Gentamicin i s not appropriate for Angelina-therapy. Coagulase Negative Staphylococcus species Levofloxacin MICROSCAN METHOD Resistant Coagulase Negative Staphylococcus species Oxacillin MICROSCAN METHOD Resistant Coagulase Negative Staphylococcus species Penicillin MICROSCAN METHOD Resistant Coagulase Negative Staphylococcus species Tetracycline MICROSCAN METHOD Sensitive Coagulase Negative Staphylococcus species Trimethoprim/Sulfa MICROSCAN METHOD Resistant Coagulase Negative Staphylococcus species Vancomycin MICROSCAN METHOD Sensitive Tal Eagle MD MICROBIOLOGY - BL OOD ORDERABLES [facility] [place] [address] documented in this encounter Visit Diagnoses Diagnosis Fever, unspecified fever cause H/O kidney transplant Kidney replaced by transplant documented in this encounter Care Teams Nurse Discharge Relationship Specialty Start Date End Date Urbano Denis DO [address] [place] [address] [address] [place] [address] PCP - General 09/03/12 03/17/22 Hai STANLEY,Ruchi Nurse Clinic Transplant Surgery 07/30/15 documented as of this encounter
--- OUTSIDE RECORDS SUMMARY | 2024-05-16 17:33 | XMS_ITS | Encounter Summary ---
Author Organization [facility] [place] [address] Care Team Providers Care Abrasive Band Winder Name Role Phone Urbano Denis DO Primary Care Provider [phone] Reason for Visit * Reason Comments Follow-up Aftercare, Figure Skater Use Meds Encounter Details Date Type Department Care Team (Late st Contact Info) Description 02/26/2016 12:00 PM EDT Office [place] [address] Aubrey Horvath MD [facility] DR [place] [address] Bacteremia; Pyelonephritis, acute; rehabilitator current use of antibiotics; Encounter for medication [...] kidney, getting antibiotics daily at [facility] through PICC. PICC working well. Physical Exam: [...] EST TH Visit (TeleHealth) Cardiology at [address] [phone] Byron Brown MD [facility] [place] [address] 07/14/2024 10:00 AM EST Hospital Encounter Non[place] [phone] Arrived documented as of this encounter Visit Diagnoses Diagnosis Bacteremia Pyelonephritis, acute Acute pyelonephritis without lesion of renal medullary necrosis assisted current use of antibiotics Encounter for long-term (current) use of antibiotics Encounter for medication monitoring Encounter for therapeutic drug monitoring documented in this encounter Care Teams Abrasive Band Winder Relationship Specialty Start Date End Date Urbano Denis DO [address] [place], [place] [address]Y [facility] [address] [place] [address] PCP - General 09/03/12 03/17/22 Ruchi Valles RN Nurse Clinic Transplant Surgery 07/30/15 documented as of this encounter
--- OUTSIDE RECORDS SUMMARY | 2024-05-16 17:33 | XMS_ITS | Encounter Summary ---
[place] [address] Care Team Providers Care Lead Neurodiagnostic Technologist Name Role Phone Urbano Denis DO Primary Care Provider [phone] Reason for Referral * Diagnostic Test (Routine) - Duplicate Referral Specialty Diagnoses / Procedures Referred By Humberto flor Referred To Contact Radiology Diagnoses Ureteral stenosis of kidney transplant Procedures IR all procedures Sonu Restrepo MD [facility] [place] [address] [place] [address] Referral ID Status Reason Start Date Expiration Date Visits Requested Visits Authorized [id number] Duplicate Referral Specialty Service Requested 04/04/2016 04/04/2017 1 1 Encounter Details Date Type Department Care Team (Late st Contact Info) Description 03/04/2016 [place] [address] Sonu Restrepo MD [facility] [place] [place] [address] Ureteral stenosis of kidney transplant [...] AM EST Visit (TeleHealth) Cardiology at [address] [phone] Byron Brown MD [facility] [place] [address] 07/14/2024 10:00 AM EST Hospital Encounter Non-[place] [phone] Arrived documented as of this encounter Results [...] was prepped and draped in supine position. Hvac R Tech image obtained. Contrast injection confirmed catheter [...] the entire procedure) ?? 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
--- OUTSIDE RECORDS SUMMARY | 2024-05-16 17:33 | XMS_ITS | Encounter Summary ---
Author Organization [facility] [place] [address] Care Team Providers Care Tan Room Supervisor Name Role Phone Urbano Denis DO Primary Care Provider [phone] Reason for Visit * Auth/Cert Specialty Diagnoses / Procedures Referred By Humberto t Referred To Contact Diagnoses Fever FEVER, S/P KIDNEY TRANSPLANT Referral ID Status Reason Start Date Expiration Date Visits Re quested Visits Authorized [id number] 1 1 Encounter Details Date Type Department Care Team (Latest Contact Info) Description 04/23/2016 10:00 AM EDT Laboratory Appointment Lab [address]L [place] [address] Kidney replaced by transplant Social [...] EST TH Visit (TeleHealth) Cardiology at [address] [phone] Byron Brown MD [facility] [place] [address] 07/14/2024 10:00 AM EST Hospital Encounter Non-Invasive Cardiology Lab [place] [phone] Arrived documented as of this encounter Procedures [...] Gram Positive organisms , probable contaminant(A ) [facility] Urine specimen (specimen) 04/23/2016 10:37 AM EDT 04/23/2016 11:19 AM EDT Narrative Resulting Agency Comment Spec In Lab Que Amaro MD MICROBIOLOGY - GENERAL ORDERABLES Performing Organization Address [facility]/ZIP Co de Phone Number [facility] [place] [address] * (ABNORMAL) Protein/Creatinine Ratio, urine (04/23/2016 10:37 AM EDT) Creatinine, Urine 166 mg/dL [facility] Protein, Urine 38(H) 0 - 12 mg/dL [facility] Protein / Creatinine Ratio, Urine 0.2 ratio [facility] Urine specimen (specimen) 04/23/2016 10:37 AM EDT 04/23/2016 10:44 AM EDT Narrative Resulting Agency Comment Spec In Lab Que Amaro MD URINE ORDERABL ES Performing Organization Address [facility] Co de Phone Number [facility] [place] [address] * (ABNORMAL) Urinalysis with reflex Culture (04/23/2016 [...] Dipstick Negative Negative [facility]ORATORY Appearance, Urine Dipstick Clear Clear [facility] Specific [place] Urine Automated 1.028 1.002 - 1.030 [facility] Color, Urine Dipstick Yellow Yellow [facility] RBC, Urine 24(H) 0 - 3 /HPF [facility] WBC, Urine 7(H) 0 - 3 /HPF [facility] Squamous Epithelial Cells, Urine <1 <=4 /HPF [facility] Reflex to Culture Yes [facility] Urine specimen (specimen) 04/23/2016 10:37 AM EDT 04/23/2016 10:44 AM EDT Narrative Resulting Agency Comment Spec In Lab Que Amaro MD URINE ORDERABL ES [facility] [place] [address] * BK Quant Blood Result (04/23/2016 10:29 [...] DNA isolated from plasma was performed using Mimiboard BKV (ASR) reagents and the Applied V-Key 7500 FAST Real-Time PCR System. In addition, the ??PCR product sequence is confirmed using physical properties (melting curve analysis). This test was developed and its performance determined by the [facility] Molecular Pathology Laboratory. It has [...] testing. [facility] Comment: [VERIFIED DATE]05.01.16 Verified By:Jimmy Gleason (Electronic Signature) Blood specimen (specimen) 04/23/2016 10:29 AM EDT 04/23/2016 11:32 AM EDT Narrative Resulting Agency Comment Spec In Lab Que Amaro MD HEMATOLOGY ORD ERABLES Performing Organization Address City/State/[facility] Co de Phone Number [facility] [place] [address] * (ABNORMAL) Differential, Automated (04/23/2016 10:29 AM EDT) Neutrophil % 70.9 % [facility] Neutrophil Absolute 4.21 1.70 - 6.10 x10(3)/mc L [facility] Lymph % 21.5 % [facility] Lymphocytes Abs 1.3 0.9 - 3.2 x10(3)/mc L [facility] Monocyte % 3.9 % [facility] Monocyte Abs 0.2(L) 0.3 - 0.9 x10(3)/mc L [facility] Eos % 2.2 % [facility] Eosinophils Abs 0.1 0.0 - 0.4 x10(3)/mc L [facility] Basophil % 1.2 % [facility] Baso Absolute 0.1 0.0 - 0.1 x10(3)/mc L [facility] Immature [...] Absolute 0.02 0.00 - 0.04 x10(3)/ L [facility] Blood specimen (specimen) 04/23/2016 10:29 AM EDT 04/23/2016 10:36 AM EDT Narrative Resulting Agency Comment Spec In Lab Que Amaro MD HEMATOLOGY ORD ERABLES [facility] [place] [address] * (ABNORMAL) Hemogram (04/23/2016 10:29 AM EDT) White Blood Cell 5.9 4.0 - 9.5 x10(3)/[facility] Red Blood Cell 4.93 4.58 - 5.54 x10(6)/[facility] Hemoglobin 16.2 13.7 - 16.5 gm/dL [facility] Hematocrit 46.0 40.5 - 48.5 % [facility] Mean Cell Volume 93.3(H) 82.9 - 93.1 fL [facility] Mean Cell Hemoglobin 32.9(H) 27.5 - 32.1 pg [facility] Mean Cell Hemoglobin Concentration 35.2 32.0 - 35.7 gm/dL [facility] Platelet 231 145 - 357 x10(3)/ L [facility] RDW Standard Deviation 44.1 36.0 - 45.0 [facility] RDW coefficient of variation 13.0 11.4 - 13.8 % [facility] Mean Platelet Volume 9.1 7.6 - 12.9 [facility] NRBC% auto 0.0 % [facility] NRBC Absolute 0.000 0.000 - 0.000 x10(3)/mc L [facility] Blood specimen (specimen) 04/23/2016 10:29 AM EDT 04/23/2016 10:36 AM EDT Narrative Resulting Agency Comment Spec In Lab Que Amaro MD HEMATOLOGY ORD ERABLES [facility] [place] [address] * (ABNORMAL) Basic Metabolic Panel (non-fasting) (04/23/2016 10:29 AM EDT) Glucose 215(H) 65 - 199 mg/dL [facility] [...] LABORATORY Est Glomerular Filtration Rate 49(L) >=60 [facility] Comment: This [...] the following links into your internet browser. [email or web address] Blood specimen (specimen) 04/23/2016 10:29 AM EDT 04/23/2016 10:36 AM EDT Narrative Resulting Agency Comment Spec In Lab Que Amaro MD CHEMISTRY ROCHELLE JENNINGS Performing Organization Address [facility] Co de Phone Number [facility] [place] [address] * (ABNORMAL) Magnesium (04/23/2016 10:29 AM EDT) Magnesium 0.64(L) 0.69 - 1.07 mmol/L [facility] Blood specimen (specimen) 04/23/2016 10:29 AM EDT 04/23/2016 10:36 AM EDT Narrative Resulting Agency Comment Spec In Lab Que Amaro MD CHEMISTRY ORDBhargav JENNINGS Performing Organization Address [facility] Co de Phone Number [facility] [place] [address] * Phosphorus (04/23/2016 10:29 AM EDT) Phosphorus 2.7 2.5 - 4.5 mg/dL [facility] Blood specimen (specimen) 04/23/2016 10:29 AM EDT 04/23/2016 10:36 AM EDT Narrative Resulting Agency Comment Spec In Lab Que Amaro MD CHEMISTRY ROCHELLE JENNINGS Performing Organization Address [facility] Co de Phone Number [facility] [place] [address] * Uric acid (04/23/2016 10:29 AM EDT) Uric Acid 8.1 3.5 - 8.5 mg/dL [facility] Blood specimen (specimen) 04/23/2016 10:29 AM EDT 04/23/2016 10:36 AM EDT Narrative Resulting Agency Comment Spec In Lab Que Amaro MD CHEMISTRY ROCHELLE JENNINGS Performing Organization Address City/[facility] Co de Phone Number [facility] [place] [address] * Tacrolimus level (04/23/2016 10:29 AM EDT) Tacrolimus 6.3 ng/mL [facility] Comment: Trough therapeutic: ??5-15 ng/mL Performed by ultra-performance liquid chromatography tandem mass spectrometry (UPLCMS/MS). Blood specimen (specimen) 04/23/2016 10:29 AM EDT 04/23/2016 11:47 AM EDT Narrative Resulting Agency Comment Spec In Lab Que Amaro MD CHEMISTRY ROCHELLE JENNINGS Performing Organization Address [facility] Co de Phone Number [facility] [place] [address] * Reticulocyte Count (04/23/2016 10:29 AM EDT) Reticulocyte % 1.8 0.7 - 2.6 % [facility] Retic Abs # 0.090 0.030 - 0.120 x10(6)/mcL [facility] Immature Retic% 5.6 0.0 - 15.6 % [facility] Reticulated Hgb 38.9 31.3 - 40.2 pg [facility] Blood specimen (specimen) 04/23/2016 10:29 AM EDT 04/23/2016 10:36 AM EDT Narrative Resulting Agency Comment Spec In Lab Que Amaro MD HEMATOLOGY ORD ERABLES [facility] [place] [address] * Cholesterol, total (04/23/2016 10:29 AM EDT) Cholesterol, Total 128 <=199 mg/dL [facility] Comment: [...] MD CHEMISTRY ROCHELLE JENNINGS Performing Organization Address City/[facility]/ZIP Co de Phone Number [facility] [place] [address] documented in this encounter Visit Diagnoses Diagnosis Kidney replaced by transplant documented in this encounter Care Teams Tan Room Supervisor Relationship Specialty Start Date End Date Urbano Denis DO [address] [place] [address] PCP - General 09/03/12 03/17/22 Ruchi Valles RN Nurse Clinic Transplant Surgery 07/30/15 documented as of this encounter
--- OUTSIDE RECORDS SUMMARY | 2024-05-16 17:33 | XMS_ITS | Encounter Summary ---
[place] [address] Care Team Providers Care Oral Pathologist Name Role Phone Adeel Urbano KIRBY Primary Care Provider [phone] Encounter Details Date Type Department Care Team (Late st Contact Info) Description 04/25/2016 Telephone [place] [phone] Margarette Kuhn, RN Social History Tobacco Use [...] EST TH Visit (TeleHealth) Cardiology at [address] [phone] Byron Brown MD [facility] [place] [address] 07/14/2024 10:00 AM EST Hospital Encounter Non[place] [phone] Arrived documented as of this encounter Visit Diagnoses Not on filedocumented in this encounter Care Teams Oral Pathologist Relationship Specialty Start Date End Date Urbano Denis DO [address] [place] [address] [address] PCP - General 09/03/12 03/17/22 aHi STANLEY,uRchi Nurse Clinic Transplant Surgery 07/30/15 documented as of this encounter
--- OUTSIDE RECORDS SUMMARY | 2024-05-16 17:33 | XMS_ITS | Encounter Summary ---
[place] [address] Care Team Providers Care Ambulance Mechanic Name Role Phone Urbano Denis DO Primary Care Provider Reason for Referral * Diagnostic Test (Routine) - Closed Specialty Diagnoses / Procedures Referred By Contac t Referred To Contact Radiology Diagnoses Kidney replaced by transplant Procedures IR all procedures Que Amaro MD [facility] [place] [address] [place] [address] Referral ID Status Reason Start Date Expiration Date V isits Requested Visits Authorized [id number] Closed Specialty Service Requested 02/26/2016 02/25/2017 1 1 Reason for Visit * Diagnostic Test (Routine) - Closed Specialty Diagnoses / Procedures Referred By Contac t Referred To Contact Radiology Diagnoses Kidney replaced by transplant Procedures IR all procedures Que Amaro MD [facility] [place] [address] [place] [address] Referral ID Status Reason Start Date Expiration Date V isits Requested Visits Authorized [id number] Closed Specialty Service Requested 02/26/2016 02/25/2017 1 1 Encounter Details Date Type Department Care Team (Late st Contact Info) Description 03/04/2016 11:50 AM EDT - 03/04/2016 11:59 PM EDT Hospital Encounter Radiology at [facility] [place] [address] Que Amaro MD [facility] [place] [address] Kidney replaced by transplant Discharge Disposition: Home [...] Issa RN - 03/04/2016 2:13 PM EDT [facility] Vascular and Interventional Radiology Discharge Instructions for [...] is during regular office hours, please call [phone]. If it is after regular office hours, or on weekends or holidays, please call [phone] and ask to speak to the Sub Arc Operator concrete finishing machine operator for Interventional Radiology. XXX You have received [...] in IR. Hebert Moreira IR Fellow Pager# [phone] * Sharmaine Hawkins RN - 02/28/2016 3:34 PM EDT [facility] Name: ETHEL AKINS Date of : 1950 AGE 65 y.o. Address: [address] [place] [phone] (home) [phone] (work) Mobile: Telephone Information: Referring Provider: Que [...] EXTREMITY performed by Que Amaro MD at [facility] MAIN OR ??? Pro transplantation of kidney N/A 09/16/2015 @KIDNEY TRANSPLANT, WITHOUT RECIPIENT NEPHRECTOMY performed by Franko Larkin MD at [facility] MAIN OR ??? Pro transplant, prep cadaver renal graft N/A 09/16/2015 @PREPARATION CADAVERIC RENAL ALLOGRAFT performed by Franko Larkin MD at [facility] OR ??? N/A 09/16/2015 ORGAN ACQUISITION RENAL, CADAVERIC performed by Franko Larkin MD at [facility] OR Date/Procedure? Med's given/comments [...] patient was prepped and drapedin supine position. Fleet Assistant image obtained. Contrast injection confirmed catheter location. [...] EST TH Visit (TeleHealth) Cardiology at [address] [phone] Byron Brown MD [facility] [place] [address] 07/14/2024 10:00 AM EST Hospital Encounter Non-[place] [phone] Arrived documented as of this encounter Procedures [...] was prepped and draped in supine position. Fleet Assistant image obtained. Contrast injection confirmed catheter location. [...] mg documented in this encounter Care Teams Ambulance Mechanic Relationship Specialty Start Date End Date Urbano Denis DO [address] [place] [address] [address] [place] [address] PCP - General 09/03/12 03/17/22 Ruchi Valles RN Nurse Clinic Transplant Surgery 07/30/15 documented as of this encounter
--- OUTSIDE RECORDS SUMMARY | 2024-05-16 17:33 | XMS_ITS | Encounter Summary ---
Author Organization [facility] [place] [address] Care Team Providers Care Manager Environmental Affairs Name Role Phone Urbano Denis DO Primary Care Provider Encounter Details Date Type Department Care Team (Late st Contact Info) Description 03/25/2016 10:30 AM EDT Office [place] [address] Jennifer Amaro MD [facility] [place] [address] Kidney replaced by transplant; Chronic hepatitis C [...] performed by Jennifer Amaro MD at [facility] MAIN OR [...] Bell, RD - 03/25/2016 10:30 AM EDT [facility] Post Transplant Nutrition Follow Up Date: 03/25/2016 Patient: Cody Bolden Transplant Date: 09/16/15 [place] organ UNOS diagnosis: Transplant: Mr. Cody Bolden [...] Value Date CHLPL 145 03/25/2016 Assessment: This repairer typewriter reviewed patient's labs with him and his . Serum magnesium and phosphorus improving. Reviewed magnesium-rich foods. Plan: Follow up next clinic visit and prn. documented in this encounter Plan of Treatment Upcoming Encounters Date Type Department Care Team (Late st Contact Info) Description 06/22/2024 11:00 AM EST Visit (TeleHealth) Cardiology at [address] [phone] Byron Brown MD [facility] [place] [address] 07/14/2024 10:00 AM EST Hospital Encounter Non[place] [phone] Arrived Scheduled Orders Name Type Priority Associated [...] (03/25/2016 9:59 AM EDT) Tacrolimus 6.5 ng/mL [facility] Comment: Trough therapeutic: ??5-15 ng/mL Performed by ultra-performance liquid chromatography tandem mass spectrometry (UPLCMS/MS). Blood specimen (specimen) 03/25/2016 9:59 AM EDT 03/25/2016 11:14 AM EDT Narrative Resulting Agency Comment Spec In Lab Jennifer Amaro MD CHEMISTRY ROCHELLE JENNINGS [facility] [place] [address] * (ABNORMAL) Urinalysis with reflex Culture (03/25/2016 [...] HOSPITAL LABORATORY Leukocytes, Urine Dipstick Small(A) Negative [facility] Appearance, Urine Dipstick Clear Clear [facility] Specific [place] Urine Automated 1.024 1.002 - 1.030 [facility] Color, Urine Dipstick Yellow Yellow [facility] RBC, Urine 2 0 - 3 /HPF [facility] WBC, Urine 13(H) 0 - 3 /HPF [facility] Bacteria, Urine Rare(A) None /HPF [facility] Squamous Epithelial Cells, Urine <1 <=4 /HPF [facility] Renal Epithelial Cells, Urine <1(H) <=0 /HPF [facility] Reflex to Culture Yes [facility] Urine specimen (specimen) 03/25/2016 9:57 AM EDT 03/25/2016 10:06 AM EDT Narrative Resulting Agency Comment Spec In Lab Jennifer Amaro MD URINE ORDERABL ES [facility] [place] [address] documented in this encounter Visit Diagnoses Diagnosis [...] documented in this encounter Care Teams Manager Environmental Affairs Relationship Specialty Start Date End Date Urbano Denis DO [address] [place] [address] PCP - General 09/03/12 03/17/22 Ruchi Valles RN Nurse Clinic Transplant Surgery 07/30/15 documented as of this encounter
--- OUTSIDE RECORDS SUMMARY | 2024-05-16 17:33 | XMS_ITS | Encounter Summary ---
[place] [address] Care Team Providers Care Pack Mule Worker Name Role Phone Urbano Denis DO Primary Care Provider Reason for Referral * Diagnostic Test (Routine) - Closed Specialty Diagnoses / Procedures Referred By Humberto flor Referred To Contact Radiology Diagnoses Kidney replaced by transplant Procedures IR all procedures Que Amaro MD [facility] [place] [address] [place] [address] Referral ID Status Reason Start Date Expiration Date V isits Requested Visits Authorized [id number] Closed Specialty Service Requested 02/26/2016 02/25/2017 1 1 Encounter Details Date Type Department Care Team (Late st Contact Info) Description 02/26/2016 10:30 AM EDT Office Visit [place] [address] Que Amaro MD [facility] [place] [address] Kidney replaced by transplant Social [...] EXTREMITY performed by Que Amaro MD at [facility] OR ??? Pro transplantation of kidney N/A 09/16/2015 @KIDNEY TRANSPLANT, WITHOUT RECIPIENT NEPHRECTOMY performed by Franko Larkin MD at [facility] OR ??? Pro transplant, prep cadaver renal graft N/A 09/16/2015 @PREPARATION CADAVERIC RENAL ALLOGRAFT performed by Franko Larkin MD at [facility] OR ??? N/A 09/16/2015 ORGAN ACQUISITION RENAL, CADAVERIC performed by Franko Larkin MD at [facility] OR Family History: No family [...] clinic: 1 month. 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 Cody Bolden [...] Value Date CHLPL 140 02/26/2016 Assessment: This casualty underwriter reviewed patient's labs with him and [...] AM EST Visit (TeleHealth) Cardiology at [address] [phone] Byron Brown MD [facility] [place] [address] 07/14/2024 10:00 AM EST Hospital Encounter [place] [address] Arrived Scheduled Orders Name Type Priority Associated [...] was prepped and draped in supine position. Media Reporter image obtained. Contrast injection confirmed catheter location. [...] antegrade study. Resident/Fellow: ??Henrique Restrepo Attending: Dr. lElsworth, I was present throughout this procedure. Qeu Amaro MD [facility] IR ORDERAB LES * BK Quant Urine Result (02/26/2016 10:00 AM EDT) BKV Urine Result Positive [facility] BKV Urine Interp BK [...] DNA isolated from urine was performed using [employer] BKV (ASR) reagents and the [employer] 7500 FAST Real-Time PCR System. In addition, the PCR product sequence is confirmed using physical properties (melting curve analysis). This test was developed and its performance determined by the [facility] Molecular Pathology Laboratory. It has not been cleared or approved by the U.S. Food and Drug Administration. This test is used for clinical purposes and should not be considered investigational or for research purposes. The Molecular Pathology Laboratory is certified by the Clinical Laboratory Improvement Act of 1988 and as such is allowed to perform high complexity clinical testing. [facility] Comment: [VERIFIED DATE]02.29.16 Verified By:Jimmy Gleason (Electronic Signature) Urine specimen (specimen) 02/26/2016 10:00 AM EDT 02/26/2016 2:24 PM EDT Narrative Resulting Agency Comment Spec In Lab Que Amaro MD HEMATOLOGY ORD ERABLES Performing Organization Address [facility] Co de Phone Number [facility] [place] [address] * Urine culture (02/26/2016 10:00 AM EDT) [facility] Urine Culture No growth (Less than 1,000 cfu/ml). [facility] Urine specimen obtained by clean catch procedure (specimen) 02/26/2016 10:00 AM EDT 02/26/2016 10:52 AM EDT Narrative Resulting Agency Comment Spec In Lab Que Amaro MD MICROBIOLOGY - GENERAL ORDERABLES Performing Organization Address [facility] Co de Phone Number [facility] [place] [address] * Green Tube HOLD (02/26/2016 10:00 AM EDT) [facility] Green Hold Sample in lab. [facility] Blood specimen (specimen) Venous Draw / Unknown 02/26/2016 10:00 AM EDT 02/26/2016 10:26 AM EDT Tal Eagle MD CHEMISTRY ORDERAB LES Performing Organization Address [facility] Co de Phone Number [facility] [place] [address] * Differential, Automated (02/26/2016 10:00 AM EDT) Neutrophil % 67.9 % [facility] Neutrophil Absolute 4.65 1.50 - 6.30 x10(3)/[facility] Lymph % 23.0 % [facility] Lymphocytes Abs 1.6 1.0 - 3.6 x10(3)/[facility] LAB[facility] Monocyte % 4.2 % [facility] Monocyte Abs 0.3 0.2 - 1.0 x10(3)/[facility] LABOR[facility] Eos % 3.5 % [facility] Eosinophils Abs 0.2 0.0 - 0.5 x10(3)/[facility] LABOR[facility] Basophil % 1.0 % [facility] Baso Absolute 0.1 0.0 - 0.2 x10(3)/[facility] LABORATORY Immature Gran % 0.40 % [facility] Comment: Immature granulocytes(IG's)percentage and absolute count will include metamyelocytes, myelocytes, and promyelocytes. Blood smears from CBCs yielding IG's will be scanned manually for concordance. If this scan disagrees with the automated IG or if promyelocytes are noted, a manual differential will be performed. Immature Gran Absolute 0.03 0.00 - 0.05 x10(3)/[facility] Blood specimen (specimen) 02/26/2016 10:00 AM EDT 02/26/2016 10:25 AM EDT Narrative Resulting Agency Comment Spec In Lab Que Amaro MD HEMATOLOGY ORD ERABLES [facility] [place] [address] * (ABNORMAL) Hemogram (02/26/2016 10:00 AM EDT) White Blood Cell 6.9 4.0 - 10.0 x10(3)/mc L [facility] Red Blood Cell 4.53(L) 4.63 - 6.08 x10(6)/mc L [facility] Hemoglobin 14.5 13.7 - 17.5 gm/dL [facility] Hematocrit 41.2 40.0 - 51.0 % [facility] Mean Cell Volume 90.9 79.0 - 92.0 fL [facility] Mean Cell Hemoglobin 32.0 25.6 - 32.2 pg [facility] Mean Cell Hemoglobin Concentration 35.2 32.0 - 36.5 gm/dL [facility] Platelet 189 145 - 370 x10(3)/mc L [facility] RDW Standard Deviation 48.6(H) 35.0 - 46.0 fL [facility] RDW coefficient of variation 14.7(H) 10.9 - 14.4 % [facility] Mean Platelet Volume 9.3 9.0 - 12.0 fL [facility] NRBC% auto 0.0 % [facility] NRBC Absolute 0.000 0.000 - 0.012 x10(3)/mc L [facility] Blood specimen (specimen) 02/26/2016 10:00 AM EDT 02/26/2016 10:25 AM EDT Narrative Resulting Agency Comment Spec In Lab Que Amaro MD HEMATOLOGY ORD MILAGROS Performing Organization Address [facility]/ZIP Co de Phone Number [facility] [place] [address] * Tacrolimus level (02/26/2016 10:00 AM EDT) Pathologist [facility] Tacrolimus 8.5 ng/mL [facility] Comment: Trough therapeutic: ??5-15 ng/mL Performed by ultra-performance liquid chromatography tandem mass spectrometry (UPLCMS/MS). Blood specimen (specimen) 02/26/2016 10:00 AM EDT 02/26/2016 11:05 AM EDT Narrative Resulting Agency Comment Spec In Lab Que Amaro MD CHEMISTRY ORDBhargav JENNINGS Performing Organization Address [facility]/ZIP Co de Phone Number [facility] [place] [address] * (ABNORMAL) Urinalysis with reflex Culture (02/26/2016 [...] LABORATORY Leukocytes, Urine Dipstick Small(A) Negative [facility] Appearance, Urine Dipstick Clear Clear [facility] Specific [place] Urine Automated 1.014 1.002 - 1.030 [facility] Color, Urine Dipstick Yellow Yellow [facility] RBC, Urine 1 0 - 3 /HPF [facility] WBC, Urine 4(H) 0 - 3 /HPF [facility] Reflex to Culture Yes [facility] Urine specimen obtained by clean catch procedure (specimen) 02/26/2016 10:00 AM EDT 02/26/2016 10:26 AM EDT Narrative Resulting Agency Comment Spec In Lab Que Amaro MD URINE ORDERABL ES [facility] [place] [address] * (ABNORMAL) Reticulocyte Count (02/26/2016 10:00 AM EDT) Reticulocyte % 2.7(H) 0.5 - 2.4 % [facility] Retic Abs # 0.120(H) 0.027 - 0.095 x10(6)/mc L [facility] Immature Retic% 11.4 2.3 - 15.9 % [facility] Reticulated Hgb 39.5(H) 28.5 - 38.9 pg [facility] Blood specimen (specimen) 02/26/2016 10:00 AM EDT 02/26/2016 10:25 AM EDT Narrative Resulting Agency Comment Spec In Lab Que Amaro MD HEMATOLOGY ORD ERABLES Performing Organization Address City/[facility]/ZIP Co de Phone Number [facility] [place] [address] * (ABNORMAL) Uric acid (02/26/2016 10:00 AM EDT) Uric Acid 8.6(H) 3.5 - 8.5 mg/dL [facility] Blood specimen (specimen) 02/26/2016 10:00 AM EDT 02/26/2016 10:25 AM EDT Narrative Resulting Agency Comment Spec In Lab Que Amaro MD CHEMISTRY ORDBhargav JENNINGS Performing Organization Address [facility] Co de Phone Number [facility] [place] [address] * (ABNORMAL) Magnesium (02/26/2016 10:00 AM EDT) Magnesium 0.59(L) 0.69 - 1.07 mmol/L [facility] Blood specimen (specimen) 02/26/2016 10:00 AM EDT 02/26/2016 10:25 AM EDT Narrative Resulting Agency Comment Spec In Lab Que Amaro MD CHEMISTRY ORDBhargav JENNINGS Performing Organization Address [facility] Co de Phone Number [facility] [place] [address] * Phosphorus (02/26/2016 10:00 AM EDT) Phosphorus 2.5 2.5 - 4.5 mg/dL [facility] Blood specimen (specimen) 02/26/2016 10:00 AM EDT 02/26/2016 10:25 AM EDT Narrative Resulting Agency Comment Spec In Lab Que Amaro MD CHEMISTRY ROCHELLE JENNINGS [facility] [place] [address] * (ABNORMAL) Comprehensive metabolic panel (non-fasting) (02/26/2016 10:00 AM EDT) Glucose 141 65 - 199 mg/dL [facility] Comment:Diabetes: >=200 mg/d L plus symptoms Blood Urea Nitrogen 17 10 - 20 mg/dL [facility] Creatinine 1.56(H) 0.80 - 1.50 mg/dL [facility] [...] mmol/L [facility] Carbon Dioxide 22 22 - 31 mmol/L [facility] Anion Gap 14 5 - 15 mmol/L [facility] Calcium 9.8 8.5 - 10.5 mg/dL [facility] Protein, Total 7.6 6.1 - 8.0 gm/dL [facility] Albumin 4.3 3.2 - 5.2 gm/dL [facility] Aspartate Aminotransferase 30 0 - 39 unit/L [facility] Alanine Aminotransferase 30 0 - 55 unit/L [facility] Alkaline Phosphatase 71 40 - 120 unit/L [facility] Bilirubin, Total 1.0 0.2 - 1.3 mg/dL [facility] Bilirubin, Direct 0.2 0.0 - 0.3 mg/dL [facility] Est Glomerular Filtration Rate 45(L) >=60 [facility] Comment: This [...] the following links into your internet browser. [email or web address] Blood specimen (specimen) 02/26/2016 10:00 AM EDT 02/26/2016 10:25 AM EDT Narrative Resulting Agency Comment Spec In Lab Que Amaro MD CHEMISTRY ROCHELLE Make My plateLENORE Performing Organization Address City/[facility]/ZIP Co de Phone Number [facility] [place] [address] * Cholesterol, total (02/26/2016 10:00 AM EDT) Cholesterol, Total 140 <=199 mg/dL [facility] Comment: Recommendations of the NCEP Adult Treatment Panel for the following risk cutoff thresholds for the [place] population: Desirable: <200 mg/dL Borderline High: 200-239 mg/dL High: > or = 240 mg/dL Blood specimen (specimen) 02/26/2016 10:00 AM EDT 02/26/2016 10:25 AM EDT Narrative Resulting Agency Comment Spec In Lab Que Amaro MD CHEMISTRY ROCHELLE JENNINGS Performing Organization Address City/[facility]/ZIP Co de Phone Number [facility] [place] [address] documented in this encounter Visit Diagnoses Diagnosis 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 [address] [place] [address] PCP - General 09/03/12 03/17/22 Ruchi Valles RN Nurse Clinic Transplant Surgery 07/30/15 documented as of this encounter
--- OUTSIDE RECORDS SUMMARY | 2024-05-16 17:34 | XMS_ITS | Encounter Summary ---
[place] [address] Care Team Providers Care Framing Manager Name Role Phone Urbano Denis DO Primary Care Provider + [phone] Reason for Referral * Diagnostic Test (Routine) - Closed Specialty Diagnoses / Procedures Referred By Humberto flor Referred To Contact Radiology Diagnoses Kidney replaced by transplant Procedures IR all procedures Victor Manuel Torre MD [facility] [place] [address] [place] [address] Referral ID Status Reason Start Date Expiration Date V isits Requested Visits Authorized [id number] Closed Specialty Service Requested 01/31/2016 01/30/2017 1 1 Encounter Details Date Type Department Care Team (Late st Contact Info) Description 01/11/2016 10:30 AM EDT Office Visit [place] [address] Que Amaro MD [facility] [place] [address] Kidney replaced by transplant; Hypothyroidism, unspecified type [...] Bell, RD - 01/11/2016 1:06 PM EDT [facility] Post Transplant Nutrition Follow Up Date: 01/11/2016 Patient: Cody Bolden Transplant Date: 09/16/15 [place] organ UNOS diagnosis: Transplant: Mr. Cody Bolden [...] Value Date CHLPL 139 01/11/2016 Assessment: This copywriter reviewed patient's blood chemistries with him. All [...] Que Amaro MD at [facility] OR? Pro transplantation of kidney?? N/A?? 09/16/2015? @KIDNEY TRANSPLANT, WITHOUT RECIPIENT NEPHRECTOMY performed by Franko Larkin MD at [facility] OR? Pro transplant, prep cadaver renal graft?? N/A?? 09/16/2015? @PREPARATION CADAVERIC RENAL ALLOGRAFT performed by Franko Larkin MD at [facility] OR? N/A?? 09/16/2015? ORGAN ACQUISITION RENAL, CADAVERIC performed by Franko Larkin MD at [facility] OR? Vitals: 01/11/16 1034 BP: 122/69 Pulse: [...] ?? Victor Manuel Torre M.D. PGY-4 Pager [phone] ?? I have seen the patient and [...] EST TH Visit (TeleHealth) Cardiology at [address] [address] Byron Brown MD [facility] [place] [address] 07/14/2024 10:00 AM EST Hospital Encounter Non-[place] [address] Arrived documented as of this encounter Results * (ABNORMAL) TSH (03/25/2016 9:59 AM EDT) Thyroid Stimulating Hormone 5.38(H) 0.27 - 4.20 mcIU/mL [facility] Blood specimen (specimen) 03/25/2016 9:59 AM EDT 03/25/2016 10:12 AM EDT Narrative Resulting Agency Comment Spec In Lab Que Amaro MD CHEMISTRY ROCHELLE JENNINGS [facility] [place] [address] * IR all procedures (02/01/2016 11:37 AM [...] was prepped and draped in supine position. Financial Rep image obtained. ??7 cc 1% lidocaine SQ [...] 9:33 AM EDT) Creatinine, Urine 114 mg/dL [facility] Protein, Urine 33(H) 0 - 12 mg/dL [facility] Protein / Creatinine Ratio, Urine 0.3 ratio [facility] Urine specimen (specimen) 01/11/2016 9:33 AM EDT 01/11/2016 9:41 AM EDT Narrative Resulting Agency Comment Spec In Lab Que Amaro MD URINE ORDERABL ES [facility] [place] [address] * (ABNORMAL) Urinalysis with reflex Culture (01/11/2016 [...] CENTER LABOR[facility]ORY Leukocytes, Urine Dipstick Small(A) Negative mcL [facility] Appearance, Urine Dipstick Clear Clear [facility] Specific [place] Urine Automated 1.015 1.002 - 1.030 [facility] Color, Urine Dipstick Yellow Yellow [facility] RBC, Urine 1 0 - 3 /HPF [facility] WBC, Urine 6(H) 0 - 3 /HPF [facility] Bacteria, Urine Rare(A) None /HPF [facility] Hyaline Casts, Urine 1 0 - 2 /LPF [facility] Reflex to Culture Yes [facility] Urine specimen (specimen) 01/11/2016 9:33 AM EDT 01/11/2016 9:41 AM EDT Narrative Resulting Agency Comment Spec In Lab Que Amaro MD URINE ORDERABL ES [facility] [place] [address] * (ABNORMAL) Comprehensive metabolic panel (non-fasting) (01/11/2016 9:04 AM EDT) Glucose 207(H) 65 - 199 mg/dL [facility] Comment:Diabetes: >=200 mg/d L plus symptoms Blood Urea Nitrogen 21(H) 10 - 20 mg/dL [facility] Creatinine 2.12(H) 0.80 - 1.50 mg/dL [facility] [...] mmol/L [facility] Calcium 9.6 8.5 - 10.5 mg/dL [facility] Protein, Total 7.8 6.1 - 8.0 gm/dL [facility] Albumin 4.3 3.2 - 5.2 gm/dL [facility] Aspartate Aminotransferase 19 0 - 39 unit/L [facility] Alanine Aminotransferase 13 0 - 55 unit/L [facility] Alkaline Phosphatase 77 40 - 120 unit/L [facility] Bilirubin, Total 1.1 0.2 - 1.3 mg/dL [facility] Bilirubin, Direct 0.3 0.0 - 0.3 mg/dL [facility] Est Glomerular Filtration Rate 31(L) >=60 [facility] Comment: [...] the following links into your internet browser. [email or web address] Blood specimen (specimen) 01/11/2016 9:04 AM EDT 01/11/2016 9:10 AM EDT Narrative Resulting Agency Comment Spec In Lab Que Amaro MD CHEMISTRY ORDBhargav JENNINGS Performing Organization Address City/[facility]/ZIP Co de Phone Number [facility] [place] [address] * (ABNORMAL) Magnesium (01/11/2016 9:04 AM EDT) Magnesium 0.46(L) 0.69 - 1.07 mmol/L [facility] Blood specimen (specimen) 01/11/2016 9:04 AM EDT 01/11/2016 9:10 AM EDT Narrative Resulting Agency Comment Spec In Lab Que Amaro MD CHEMISTRY ORDBhargav JENNINGS Performing Organization Address City/[facility]/ZIP Co de Phone Number [facility] [place] [address] * Phosphorus (01/11/2016 9:04 AM EDT) Phosphorus 2.7 2.5 - 4.5 mg/dL [facility] Blood specimen (specimen) 01/11/2016 9:04 AM EDT 01/11/2016 9:10 AM EDT Narrative Resulting Agency Comment Spec In Lab uQe Amaro MD CHEMISTRY ORDBhargav JENNINGS Performing Organization Address [facility] Co de Phone Number [facility] [place] [address] * (ABNORMAL) Uric acid (01/11/2016 9:04 AM EDT) Uric Acid 8.8(H) 3.5 - 8.5 mg/dL [facility] Blood specimen (specimen) 01/11/2016 9:04 AM EDT 01/11/2016 9:10 AM EDT Narrative Resulting Agency Comment Spec In Lab Que Amaro MD CHEMISTRY ORDBhargav JENNINGS Performing Organization Address [facility] Co de Phone Number [facility] [place] [address] * Tacrolimus level (01/11/2016 9:04 AM EDT) Tacrolimus 9.7 ng/mL [facility] Comment:Trough therapeutic: 5-15 ng/mL Blood specimen (specimen) 01/11/2016 9:04 AM EDT 01/11/2016 10:45 AM EDT Narrative Resulting Agency Comment Spec In Lab Que Amaro MD CHEMISTRY ORDBhargav JENNINGS Performing Organization Address [facility] Co de Phone Number [facility] [place] [address] * (ABNORMAL) Reticulocyte Count (01/11/2016 9:04 AM EDT) Reticulocyte % 2.2 0.5 - 2.4 % [facility] Retic Abs # 0.100(H) 0.027 - 0.095 x10(6)/mc L [facility] Immature Retic% 8.4 2.3 - 15.9 % [facility] Reticulated Hgb 33.3 28.5 - 38.9 pg [facility] Immature Plt % 2.3 0.0 - 7.4 % [facility] Blood specimen (specimen) 01/11/2016 9:04 AM EDT 01/11/2016 9:11 AM EDT Narrative Resulting Agency Comment Spec In Lab Que Amaro MD HEMATOLOGY ORD ERABLES Performing Organization Address [facility] Co de Phone Number [facility] [place] [address] * Cholesterol, total (01/11/2016 9:04 AM EDT) Cholesterol, Total 139 <=199 mg/dL [facility] Comment: Recommendations of the NCEP Adult Treatment Panel for the following risk cutoff thresholds for the [place] population: Desirable: <200 mg/dL Borderline High: 200-239 mg/dL High: > or = 240 mg/dL Blood specimen (specimen) 01/11/2016 9:04 AM EDT 01/11/2016 9:10 AM EDT Narrative Resulting Agency Comment Spec In Lab Que Amaro MD CHEMISTRY ORDBhargav JENNINGS Performing Organization Address [facility] Co de Phone Number [facility] [place] [address] documented in this encounter Visit Diagnoses Diagnosis Kidney replaced by transplant Hypothyroidism, unspecified type documented in this encounter Care Teams Framing Manager Relationship Specialty Start Date End Date Urbano Denis DO [address] [place] [address] [address] [place] [address] PCP - General 09/03/12 03/17/22 Ruchi Valles RN Nurse Clinic Transplant Surgery 07/30/15 documented as of this encounter
--- OUTSIDE RECORDS SUMMARY | 2024-05-16 17:34 | XMS_ITS | Encounter Summary ---
Author Organization [facility] [address] Care Team Providers Care Entry Rep Name Role Phone AdeelUrbano toscano Primary Care Provider [phone] Encounter Details Date Type Department Care Team (Late st Contact Info) Description 01/03/2016 Orders Only [place] [address] Victor Manuel Torre MD [facility] [address] H/O kidney transplant Social History Tobacco Use [...] st Contact Info) Description 06/22/2024 11:00 AM Visit (TeleHealth) Cardiology at [address] [phone] Byron Brown MD [facility] [place] [address] 07/14/2024 10:00 AM EST Hospital Encounter Non-[place] [address] Arrived documented as of this [...] documented in this encounter Care Teams Entry Rep Relationship Specialty Start Date End Date Urbano Denis DO [address] [place] [address] PCP - General 09/03/12 03/17/22 Ruchi Valles RN Nurse Clinic Transplant Surgery 07/30/15 documented as of this encounter
--- OUTSIDE RECORDS SUMMARY | 2024-05-16 17:34 | XMS_ITS | Encounter Summary ---
Author Organization [facility] [place] [address] Care Team Providers Care Pork Cutlet Maker Name Role Phone AdeelUrbano boland Primary Care Provider + [phone] Encounter Details Date Type Department Care Team (Late st Contact Info) Description 01/09/2016 Telephone [place] [address] Victor Manuel Torre MD [facility] [place] [address] Social History Tobacco Use Types Packs/Day Years [...] EST TH Visit (TeleHealth) Cardiology at [address] [address] Byron Brown MD [facility] [place] [address] 07/14/2024 10:00 AM EST Hospital Encounter Non-[place] [address] Arrived documented as of this encounter Visit Diagnoses Not on filedocumented in this encounter Care Teams Pork Cutlet Maker Relationship Specialty Start Date End Date Urbano Denis DO [facility] [address] [facility] [address] [place] [address] PCP - General 09/03/12 03/17/22 Ruchi Valles RN Nurse Clinic Transplant Surgery 07/30/15 documented as of this encounter
--- OUTSIDE RECORDS SUMMARY | 2024-05-16 17:34 | XMS_ITS | Encounter Summary ---
Author Organization [facility] [place] [address] Care Team Providers Care Abstractor Name Role Phone AdeelUrbano toscano Primary Care Provider [phone] Encounter Details Date Type Department Care Team (Late st Contact Info) Description 01/14/2016 Notes Only Solid [place] [address] Chapin Lehman MSW Social History [...] EST TH Visit (TeleHealth) Cardiology at [address] [address] Byron Brown MD [facility] [place] [address] 07/14/2024 10:00 AM EST Hospital Encounter Non-Invasive Cardiology Lab [facility] [place] [address] Arrived documented as of this encounter Visit Diagnoses Not on filedocumented in this encounter Care Teams Abstractor Relationship Specialty Start Date End Date Urbano Denis DO [address] [place] [address] [address] [place] [address] PCP - General 09/03/12 03/17/22 Ruchi Valles RN Nurse Clinic Transplant Surgery 07/30/15 documented as of this encounter
--- OUTSIDE RECORDS SUMMARY | 2024-05-16 17:34 | XMS_ITS | Encounter Summary ---
Author Organization [facility] [place] [address] Care Team Providers Care Grading Clerk Name Role Phone Urbano Denis DO Primary Care Provider Encounter Details Date Type Department Care Team (Late st Contact Info) Description 01/04/2016 2:00 PM EDT Office Visit [place] [address] Que Amaro MD [facility] [place] [address] Kidney replaced by transplant Social History Tobacco [...] of urine from the time he left [facility] until 7 am. He [...] MD at [facility] OR Visit Vitals: BP 112/68 Pulse [...] we spoke to the Transplant ID Fellow cotton factor. She stated that the WBC/RBC ratio of [...] with Dr. Sondra Torre M.D. PGY-4 Pager [phone] documented in this encounter Plan of Treatment Upcoming Encounters Date Type Department Care Team (Late st Contact Info) Description 06/22/2024 11:00 AM EST Visit (TeleHealth) Cardiology at [address] [address] Byron Brown MD [facility] [place] [address] 07/14/2024 10:00 AM EST Hospital Encounter Non-Invasive [place] [address] Arrived Scheduled Orders Name Type Priority Associated Diagnoses Orde r Schedule CBC (with Diff) Lab STAT Kidney replaced by transplant Expected: 01/03/2016 (Approximate), Expires: 07/01/2016 Comprehensive metabolic panel (non-fasting) Lab STAT Kidney replaced by transplant Expected: 01/03/2016 (Approximate), Expires: 07/01/2016 documented as of this encounter Results * (ABNORMAL) Magnesium (01/04/2016 1:55 PM EDT) Magnesium 0.63(L) 0.69 - 1.07 mmol/L [facility] Blood specimen (specimen) 01/04/2016 1:55 PM EDT 01/04/2016 2:05 PM EDT Narrative Resulting Agency Comment Spec In Lab Que Amaro MD CHEMISTRY ROCHELLE JENNINGS Performing Organization Address City/[facility]/ZIP Co de Phone Number [facility] [place] [address] * (ABNORMAL) Phosphorus (01/04/2016 1:55 PM EDT) Phosphorus 2.1(L) 2.5 - 4.5 mg/dL [facility] Blood specimen (specimen) 01/04/2016 1:55 PM EDT 01/04/2016 2:05 PM EDT Narrative Resulting Agency Comment Spec In Lab Que Amaro MD CHEMISTRY ROCHELLE JENNINGS Performing Organization Address [facility] Co de Phone Number [facility] [place] [address] * Uric acid (01/04/2016 1:55 PM EDT) Uric Acid 7.0 3.5 - 8.5 mg/dL [facility] Blood specimen (specimen) 01/04/2016 1:55 PM EDT 01/04/2016 2:05 PM EDT Narrative Resulting Agency Comment Spec In Lab Que Amaro MD CHEMISTRY ORDBhargav JENNINGS Performing Organization Address City/[facility] Co de Phone Number [facility] [place] [address] * Reticulocyte Count (01/04/2016 1:55 PM EDT) Reticulocyte % 1.0 0.5 - 2.4 % [facility] Retic Abs # 0.040 0.027 - 0.095 x10(6)/mcL [facility] Immature Retic% 5.5 2.3 - 15.9 % [facility] Reticulated Hgb 35.3 28.5 - 38.9 pg [facility] Immature Plt % 1.1 0.0 - 7.4 % [facility] Blood specimen (specimen) 01/04/2016 1:55 PM EDT 01/04/2016 2:05 PM EDT Narrative Resulting Agency Comment Spec In Lab Que Amaro MD HEMATOLOGY ORD MILAGROS Performing Organization Address [facility] Co de Phone Number [facility] [place] [address] * Cholesterol, total (01/04/2016 1:55 PM EDT) Cholesterol, Total 137 <=199 mg/dL [facility] Comment: Recommendations of the NCEP Adult Treatment Panel for the following risk cutoff thresholds for the [place] population: Desirable: <200 mg/dL Borderline High: 200-239 mg/dL High: > or = 240 mg/dL Blood specimen (specimen) 01/04/2016 1:55 PM EDT 01/04/2016 2:05 PM EDT Narrative Resulting Agency Comment Spec In Lab Que Amaro MD CHEMISTRY ROCHELLE JENNINGS Performing Organization Address [facility] Co de Phone Number [facility] [place] [address] * (ABNORMAL) Protein/Creatinine Ratio, urine (01/04/2016 1:54 PM EDT) Creatinine, Urine 128 mg/dL [facility] Protein, Urine 130(H) 0 - 12 mg/dL [facility] Protein / Creatinine Ratio, Urine 1.0 ratio [facility] Urine specimen (specimen) 01/04/2016 1:54 PM EDT 01/04/2016 2:01 PM EDT Narrative Resulting Agency Comment Spec In Lab Que Amaro MD URINE ORDERABL ES [facility] [place] [address] * (ABNORMAL) Urinalysis with reflex Culture (01/04/2016 [...] CENTER [facility] Leukocytes, Urine Dipstick Moderate(A) Negative [facility] Appearance, Urine Dipstick Cloudy(A) Clear [facility] Specific [place] Urine Automated 1.016 1.002 - 1.030 [facility] Color, Urine Dipstick Yellow Yellow [facility] RBC, Urine 74(H) 0 - 3 /HPF [facility] WBC, Urine 35(H) 0 - 3 /HPF [facility] Bacteria, Urine Rare(A) None /HPF [facility] Squamous Epithelial Cells, Urine <1 <=4 /HPF [facility] Reflex to Culture Yes [facility] Urine specimen (specimen) 01/04/2016 1:54 PM EDT 01/04/2016 2:00 PM EDT Narrative Resulting Agency Comment Spec In Lab Que Amaro MD URINE ORDERABL ES [facility] [place] [address] documented in this encounter Visit Diagnoses Diagnosis Kidney replaced by transplant documented in this encounter Care Teams Grading Clerk Relationship Specialty Start Date End Date Urbano Denis DO [address] [place] [address] PCP - General 09/03/12 03/17/22 Ruchi Valles RN Nurse Clinic Transplant Surgery 07/30/15 documented as of this encounter
--- OUTSIDE RECORDS SUMMARY | 2024-05-16 17:34 | XMS_ITS | Encounter Summary ---
Author Organization [facility] [place] [address] Care Team Providers Care Tree Shear Operator Name Role Phone Adeel Urbano KIRBY Primary Care Provider + [phone] Reason for Visit * Reason Comments Follow-up * Auth/Cert Specialty Diagnoses / Procedures Referred By Humberto flor Referred To Contact Diagnoses RAY (acute kidney injury) RAY - RO REJECTION / SP RENAL TRANSPLANT Referral ID Status Reason Start Date Expiration Date Visits Re quested Visits Authorized [id number] 1 1 Encounter Details Date Type Department Care Team (Late st Contact Info) Description 01/03/2016 11:00 AM EDT Office [place] [address] Tulio Marcelo MD [facility] [place] [address] Hepatitis C virus infection without hepatic coma, [...] Marcelo MD - 01/03/2016 10:52 AM EDT [facility] [place] [place] Patient: Cody Bolden Date of : 1950 AQUACULTURIST: Tulio Marcelo MD PCP: URBANO DENIS DO [...] nasal drugs (-) Tattoos? (-) service (+) [phone], airgun vaccines Blood Transfusions (-) Close contact with Hepatitis Relationship (+) cousan [phone]. never tested PHYSICAL EXAM There were no [...] Marcelo MD Section of Gastroenterology and Hepatology [facility] [place] [address] V: [phone] F: [phone] Copy: URBANO DENIS DO 25 of this 30 minute visit in face to face discussion regarding disease, prognosis and treatment documented in this encounter Plan of Treatment Upcoming Encounters Date Type Department Care Team (Late st Contact Info) Description 06/22/2024 11:00 AM EST TH Visit (TeleHealth) Cardiology at [address] [address] Byron Brown MD [facility] [place] [address] 07/14/2024 10:00 AM EST Hospital Encounter Non-[place] [address] Arrived documented as of this encounter Results * Miscellaneous Lab request (01/04/2016 1:55 PM EDT) Label Request received in lab. [facility] Blood specimen (specimen) 01/04/2016 1:55 PM EDT 01/04/2016 5:54 PM EDT Narrative Resulting Agency Comment Spec In Lab Tulio Marcelo MD LAB SEND OUT ORDERA BLES [facility] [place] [address] documented in this encounter Visit Diagnoses Diagnosis Hepatitis C virus infection without hepatic coma, unspecified chronicity documented in this encounter Care Teams Tree Shear Operator Relationship Specialty Start Date End Date Urbano Denis DO [facility] [address] [place] [address] PCP - General 09/03/12 03/17/22 Hai STANLEY,Ruchi Nurse Clinic Transplant Surgery 07/30/15 documented as of this encounter
--- OUTSIDE RECORDS SUMMARY | 2024-05-16 17:34 | XMS_ITS | Encounter Summary ---
Author Organization [place] [address] Care Team Providers Care Corporate Relations Director Name Role Phone Urbano Denis DO Primary Care Provider [phone] Reason for Visit * Auth/Cert Specialty Diagnoses / Procedures Referred By Humberto t Referred To Contact Diagnoses RAY (acute kidney injury) RAY - RO REJECTION / SP RENAL TRANSPLANT Referral ID Status Reason Start Date Expiration Date Visits Re quested Visits Authorized [id number] 1 1 Encounter Details Date Type Department Care Team (Late st Contact Info) Description 01/03/2016 3:30 PM EDT Office Visit Cardiology at [address] [phone] Byron Brown MD [facility] [place] [address] Acute renal failure, unspecified acute renal failure [...] PCP and referred for further evaluation at [facility]. He underwent some testing including a [...] EST TH Visit (TeleHealth) Cardiology at [address] [phone] Byron Brown MD [facility] [place] [address] 07/14/2024 10:00 AM EST Hospital Encounter [place] [phone] Arrived documented as of this encounter Visit Diagnoses Diagnosis Acute renal failure, unspecified acute renal failure type documented in this encounter Care Teams Corporate Relations Director Relationship Specialty Start Date End Date Adeel DO Urbano [address] [place] [address] PCP - General 09/03/12 03/17/22 Ruchi Valles RN Nurse Clinic Transplant Surgery 07/30/15 documented as of this encounter
--- OUTSIDE RECORDS SUMMARY | 2024-05-16 17:34 | XMS_ITS | Encounter Summary ---
Author Organization [facility] Address [facility] [place] [address] Care Team Providers Care Short Goods Drier Name Role Phone Urbano Denis DO Primary Care Provider [phone] Reason for Visit * Auth/Cert Specialty Diagnoses / Procedures Referred By Humberto t Referred To Contact Diagnoses RAY (acute kidney injury) RAY - RO REJECTION / SP RENAL TRANSPLANT Referral ID Status Reason Start Date Expiration Date Visits Re quested Visits Authorized [id number] 1 1 Encounter Details Date Type Department Care Team (Late st Contact Info) Description 01/03/2016 12:33 PM EDT - 01/03/2016 11:59 PM EDT Hospital Encounter XRay at [address] [place] [id number] Que Amaro MD [facility] [place] [address] H/O kidney transplant Discharge Disposition: Home Social [...] EST TH Visit (TeleHealth) Cardiology at [address] [phone] Byron Brown MD [facility] [place] [address] 07/14/2024 10:00 AM EST Hospital Encounter Non-Invasive Cardiology Lab [facility] [place] [id number] Arrived documented as of this encounter Procedures [...] transplant documented in this encounter Care Teams Short Goods Drier Relationship Specialty Start Date End Date Urbano Denis DO [address] [place] [address] PCP - General 09/03/12 03/17/22 Ruchi Valles RN Nurse Clinic Transplant Surgery 07/30/15 documented as of this encounter
--- OUTSIDE RECORDS SUMMARY | 2024-05-16 17:34 | XMS_ITS | Encounter Summary ---
Author Organization [facility] [place] [address] Care Team Providers Care Compressor Service Technician Name Role Phone Adeel Urbano KIRBY Primary Care Provider [phone] Encounter Details Date Type Department Care Team (Latest Contact Info) Description 01/04/2016 1:00 PM EDT Laboratory Appointment Lab [address] [place] [phone] Hepatitis C virus infection without hepatic coma, [...] AM EST Visit (TeleHealth) Cardiology at [address] [phone] Byron Brown MD [facility] [place] [address] 07/14/2024 10:00 AM EST Hospital Encounter Non-Invasive [facility] [place] [phone] Arrived Pending Results Name Type Priority Associated Diagnoses Date /Time Hepatitis C genotype Lab Routine Hepatitis C virus infection without hepatic coma, unspecified chronicity 01/04/2016 1:44 PM EDT documented as of this encounter Procedures Procedure Name Priority Date/Time Associated Diagnosis Comments MISCELLANEOUS LAB REQUEST Routine 01/04/2016 1:55 PM EDT Hepatitis C virus infection without hepatic coma, unspecified chronicity [facility]ERG TEST-BERG Routine 01/04/2016 1 :55 PM [...] EDT documented in this encounter Results * [facility] Test-[place] (01/04/2016 1:55 PM EDT) [facility] Berg Test ?Result ?Flag ??Unit ??RefValue HCV [...] For additional information please refer to http://education .[employer]/faq/[email or web address] This test was developed and its analytical performance characteristics have been determined by [facility]. It has not been cleared or approved by the FDA. This assay has been validated pursuant to the CLIA regulations and is used for clinical purposes. Test Performed by: [facility], [address] [id number] [place] [address] [facility] Blood specimen (specimen) Venous Draw / Unknown 01/04/2016 1:55 PM EDT 01/04/2016 4:01 PM EDT Narrative Resulting Agency Comment Spec In Lab Tulio Marcelo MD LAB SEND OUT ORDERA BLES [facility] [place] [address] * (ABNORMAL) Differential, Automated (01/04/2016 1:55 PM EDT) Neutrophil % 74.7 % [facility] Neutrophil Absolute 5.46 1.50 - 6.30 x10(3)/mc L [facility] Lymph % 19.9 % [facility] Lymphocytes Abs 1.5 1.0 - 3.6 x10(3)/mc L [facility] Monocyte % 1.8 % [facility] Monocyte Abs 0.1(L) 0.2 - 1.0 x10(3)/mc L [facility] Eos % 2.7 % [facility] Eosinophils Abs 0.2 0.0 - 0.5 x10(3)/mc L [facility] Basophil % 0.8 % [facility] Baso Absolute 0.1 0.0 - 0.2 x10(3)/mc L [facility] [...] Absolute 0.01 0.00 - 0.05 x10(3)/mc L [facility] Blood specimen (specimen) 01/04/2016 1:55 PM EDT 01/04/2016 2:05 PM EDT Narrative Resulting Agency Comment Spec In Lab Tulio Marcelo MD HEMATOLOGY ORDERABL ES [facility] [place] [address] * (ABNORMAL) Hemogram (01/04/2016 1:55 PM EDT) White Blood Cell 7.3 4.0 - 10.0 x10(3)/[facility] Red Blood Cell 4.29(L) 4.63 - 6.08 x10(6)/[facility] Hemoglobin 13.6(L) 13.7 - 17.5 gm/dL [facility] Hematocrit 39.9(L) 40.0 - 51.0 % [facility] Mean Cell Volume 93.0(H) 79.0 - 92.0 fL [facility] Mean Cell Hemoglobin 31.7 25.6 - 32.2 pg [facility] Mean Cell Hemoglobin Concentration 34.1 32.0 - 36.5 gm/dL [facility] Platelet 244 145 - 370 x10(3)/[facility] RDW Standard Deviation 45.9 35.0 - 46.0 fL [facility] RDW coefficient of variation 13.8 10.9 - 14.4 % [facility] Mean Platelet Volume 9.2 9.0 - 12.0 fL [facility] Blood specimen (specimen) 01/04/2016 1:55 PM EDT 01/04/2016 2:05 PM EDT Narrative Resulting Agency Comment Spec In Lab Tulio Marcelo MD HEMATOLOGY ORDERABL ES Performing Organization Address [facility]/ZIP Co de Phone Number [facility] [place] [address] * Miscellaneous Lab request (01/04/2016 1:55 PM EDT) Label Request received in lab. [facility] Blood specimen (specimen) 01/04/2016 1:55 PM EDT 01/04/2016 5:54 PM EDT Narrative Resulting Agency Comment Spec In Lab Tulio Marcelo MD LAB SEND OUT ORDERA BLES Performing Organization Address [facility] Co de Phone Number [facility] [place] [address] * (ABNORMAL) Magnesium (01/04/2016 1:55 PM EDT) Magnesium 0.63(L) 0.69 - 1.07 mmol/L [facility] Blood specimen (specimen) 01/04/2016 1:55 PM EDT 01/04/2016 2:05 PM EDT Narrative Resulting Agency Comment Spec In Lab Que Amaro MD CHEMISTRY ROCHELLE JENNINGS Performing Organization Address [facility] Co de Phone Number [facility] [place] [address] * (ABNORMAL) Phosphorus (01/04/2016 1:55 PM EDT) Phosphorus 2.1(L) 2.5 - 4.5 mg/dL [facility] Blood specimen (specimen) 01/04/2016 1:55 PM EDT 01/04/2016 2:05 PM EDT Narrative Resulting Agency Comment Spec In Lab Que Amaro MD CHEMISTRY ORDTiny JENNINGS Performing Organization Address [facility]/ZIP Co de Phone Number [facility] [place] [address] * Uric acid (01/04/2016 1:55 PM EDT) Uric Acid 7.0 3.5 - 8.5 mg/dL [facility] Blood specimen (specimen) 01/04/2016 1:55 PM EDT 01/04/2016 2:05 PM EDT Narrative Resulting Agency Comment Spec In Lab Que Amaro MD CHEMISTRY ORDE RABLES Performing Organization Address [facility] [place] [address] * Reticulocyte Count (01/04/2016 1:55 PM EDT) Pathologist [facility] Reticulocyte % 1.0 0.5 - 2.4 % [facility] Retic Abs # 0.040 0.027 - 0.095 x10(6)/mcL [facility] Immature Retic% 5.5 2.3 - 15.9 % [facility] Reticulated Hgb 35.3 28.5 - 38.9 pg [facility] Immature Plt % 1.1 0.0 - 7.4 % [facility] Blood specimen (specimen) 01/04/2016 1:55 PM EDT 01/04/2016 2:05 PM EDT Narrative Resulting Agency Comment Spec In Lab Que Amaro MD HEMATOLOGY ORD ERABLES Performing Organization Address [facility] Co de Phone Number [facility] [place] [address] * Cholesterol, total (01/04/2016 1:55 PM EDT) Cholesterol, Total 137 <=199 mg/dL [facility] [...] MD CHEMISTRY ROCHELLE JENNINGS Performing Organization Address [facility] Co de Phone Number [facility] [place] [address] * Hepatitis C RNA, quantitative, PCR (01/04/2016 1:55 PM EDT) HCV Viral Load 516,252 IU/mL [facility] HCV Viral Load Result: [id number] IU/mL Indication for Study: Hepatitis C Infection Analysis: A quantitiative real time reverse transcriptase PCR assay was performed on extracted viral RNA for the purpose of quantification. Sample: plasma (1 mL minimum volume) Method: Kirsten June TaqMAN 48 HCV Linear Range: 15 IU/mL - 100,000,000IU/mL (95% CI) Note: This assay is being performed in the [facility] Molecular Pathology Laboratory. Gibson Good, Ph.D. Director, Molecular Pathology [facility] Comment: [VERIFIED DATE]01.09.16 Verified By:Fatemeh Garcia (Electronic Signature) Blood specimen (specimen) 01/04/2016 1:55 PM EDT 01/08/2016 8:08 AM EDT Narrative Resulting Agency Comment Spec In Lab Tulio Marcelo MD MOLECULAR ORDERABLE S Performing Organization Address [facility] Co de Phone Number [facility] [place] [address] * Prothrombin Time (01/04/2016 1:55 PM EDT) Prothrombin Time 13.6 12.0 - 15.0 sec [facility] Blood specimen (specimen) 01/04/2016 1:55 PM EDT 01/04/2016 2:05 PM EDT Narrative Resulting Agency Comment Spec In Lab Tulio Marcelo MD HEMATOLOGY ORDERABL ES [facility] [place] [address] * (ABNORMAL) Comprehensive metabolic panel (non-fasting) (01/04/2016 1:55 PM EDT) Glucose 104 65 - 199 mg/dL [facility] Comment:Diabetes: >=200 mg/d L plus symptoms Blood Urea Nitrogen 29(H) 10 - 20 mg/dL [facility] Creatinine 2.69(H) 0.80 - 1.50 mg/dL [facility] [...] questions. Chloride 97(L) 98 - 107 mmol/L [facility] Carbon Dioxide 26 22 - 31 mmol/L [facility] Anion Gap 15 5 - 15 mmol/L [facility] Calcium 9.5 8.5 - 10.5 mg/dL [facility] Protein, Total 7.9 6.1 - 8.0 gm/dL [facility] Albumin 4.2 3.2 - 5.2 gm/dL [facility] Aspartate Aminotransferase 21 0 - 39 unit/L [facility] Alanine Aminotransferase 16 0 - 55 unit/L [facility] Alkaline Phosphatase 66 40 - 120 unit/L [facility] Bilirubin, Total 0.9 0.2 - 1.3 mg/dL [facility] Bilirubin, Direct 0.2 0.0 - 0.3 mg/dL [facility] Est Glomerular Filtration Rate 24(L) >=60 [facility] Comment: [...] the following links into your internet browser. [email or web address]://[email or web address] [email or web address] Blood specimen (specimen) 01/04/2016 1:55 PM EDT 01/04/2016 2:05 PM EDT Narrative Resulting Agency Comment Spec In Lab Tulio Marcelo MD CHEMISTRY ORDERABLE S Performing Organization Address [facility] Co de Phone Number [facility] [place] [address] * Urine culture (01/04/2016 1:54 PM EDT) Urine Culture No growth (Less than 1,000 cfu/ml). [facility] Urine specimen (specimen) 01/04/2016 1:54 PM EDT 01/04/2016 2:23 PM EDT Narrative Resulting Agency Comment Spec In Lab Que Amaro MD MICROBIOLOGY - GENERAL ORDERABLES Performing Organization Address [facility]/ZIP Co de Phone Number [facility] [place] [address] * (ABNORMAL) Protein/Creatinine Ratio, urine (01/04/2016 1:54 PM EDT) Creatinine, Urine 128 mg/dL [facility] Protein, Urine 130(H) 0 - 12 mg/dL [facility] Protein / Creatinine Ratio, Urine 1.0 ratio [facility] Urine specimen (specimen) 01/04/2016 1:54 PM EDT 01/04/2016 2:01 PM EDT Narrative Resulting Agency Comment Spec In Lab Que Amaro MD URINE ORDERABL ES [facility] [place] [address] * (ABNORMAL) Urinalysis with reflex Culture (01/04/2016 [...] CENTER LABORATORY Leukocytes, Urine Dipstick Moderate(A) Negative [facility] Appearance, Urine Dipstick Cloudy(A) Clear [facility] Specific [place] Urine Automated 1.016 1.002 - 1.030 [facility] Color, Urine Dipstick Yellow Yellow [facility] RBC, Urine 74(H) 0 - 3 /HPF [facility] WBC, Urine 35(H) 0 - 3 /HPF [facility] Bacteria, Urine Rare(A) None /HPF [facility] Squamous Epithelial Cells, Urine <1 <=4 /HPF [facility] Reflex to Culture Yes [facility] Urine specimen (specimen) 01/04/2016 1:54 PM EDT 01/04/2016 2:00 PM EDT Narrative Resulting Agency Comment Spec In Lab Que Amaro MD URINE ORDERABL ES [facility] [place] [address] documented in this encounter Visit Diagnoses Diagnosis Hepatitis C virus infection without hepatic coma, unspecified chronicity Kidney replaced by transplant Kidney transplant infection Complications of transplanted kidney documented in this encounter Care Teams Compressor Service Technician Relationship Specialty Start Date End Date Urbano Denis DO [facility] [address] [place] [address] PCP - General 09/03/12 03/17/22 Ruchi Valles RN Nurse Clinic Transplant Surgery 07/30/15 documented as of this encounter
--- OUTSIDE RECORDS SUMMARY | 2024-05-16 17:34 | XMS_ITS | Encounter Summary ---
[place] [address] Care Team Providers Care Domestic Housekeeper Name Role Phone Urbano Denis DO Primary Care Provider + [phone] Reason for Referral * Consultation (Routine) - Closed Specialty Diagnoses / Procedures Referred By Contpaula t Referred To Contact Infectious Diseases Diagnoses Bacteremia Ramez Serrano [facility] [place] [address] Ramez Serrano [facility] [place] [address] Referral ID Status Reason Start Date Expiration Date V isits Requested Visits Authorized [id number] Closed Assume Subset of Care 02/04/2016 02/03/2017 1 1 * Diagnostic Test (Routine) - Closed Specialty Diagnoses / Procedures Referred By Contac t Referred To Contact Radiology Diagnoses Kidney replaced by transplant Procedures IR all procedures Epifanio Torre MD [facility] DR [place] [address] [facility] [place] [address] Referral ID Status Reason Start Date Expiration Date V isits Requested Visits Authorized [id number] Closed Specialty Service Requested 01/31/2016 01/30/2017 1 1 Reason for Visit * Auth/Cert Specialty Diagnoses / Procedures Referred By Contac t Referred To Contact Diagnoses UTI, FEVER S/P KIDNEY TRANSPLANT Referral ID Status Reason Start Date Expiration Date Visits Re quested Visits Authorized [id number] 1 1 Encounter Details Date Type Department Care Team (Late st Contact Info) Description 01/29/2016 10:10 PM EDT - 02/05/2016 12:27 PM EDT Hospital Encounter [address] [place] [address] Madhu Eagle MD [facility] [place] [address] Que Amaro MD [facility] [place] [address] Kidney replaced by transplant; Bacteremia; ESRD (end [...] Ethel Akins Patient Age: 65 y.o. Language: French Race: White Ethnicity: Not nor Admit date: 01/29/2016 Discharge date and time: 02/05/2016 Attending Physician: Que Amaro,* Discharge Physician: MADHU EAGLE CHRISTOPHER E Follow-up Recommendations for Providers: -Please contact the [facility] Transplant team before changing any medications in Mr. Akins's regimen. Inpatient Provider Contact Information: Que Amaro M.D. [facility] [phone] Discharge Diagnoses (Hospital Problems) and Secondary Diagnoses [...] of breath. He was directly admitted to [facility] on 01/29/16 for further work-upand treatment. ?? Hospital Course: ?? Ethel Akins was admitted to [facility] on the night of 01/29/16. Upon admission [...] was prepped and draped in supine position. Customer Service Sales Associate image obtained. 7 cc 1% lidocaine SQ [...] cigars, only sometimes Multidisciplinary Team Recommendations: - CARD WRITER HAND TEAM: The international logistics coordinator has completed the standard post operativepatient [...] 02/12/2016 7:30 AM Santosh Arredondo MD Urology [phone] 02/15/2016 9:00 AM TRANSPLANT, COORDINATOR Transplant [phone] 02/15/2016 10:00 AM Que Amaro MD Transplant [phone] 04/10/2016 11:30 AM Tulio Marcelo MD Gastroenterology [phone] 09/15/2016 9:00 AM LAB, THREE L [facility] Lab 3L [phone] 09/15/2016 10:00 AM Madhu Eagle MD Transplant [phone] Future Orders Complete By Expires OPAT: Order / Recommendation for Post Discharge IV Antibiotic Management [[id number] CPT(R)] As directed Process Instructions: If no progress note charted, please enter Clinical details in comments. Scheduling Instructions: Comments: Please Fax all results to: OPAT Program Infectious Disease Section [facility] [place], [place] [address] FAX: Line care instructions per [facility] OPAT Program protocol. After hours, please contact the Infectious Disease Physician outpatient receptionist at . If this order was signed greater than 72 hours prior to [facility] discharge, please call [...] the transplant clinic: Solid Organ Transplant Department [facility], section [address] [place], [place] [id number] Future Appointments Date Time Provider Department Center 02/12/2016 7:30 AM Santosh Arredondo MD Le[facility] Uro [facility] 02/15/2016 9:00 AM TRANSPLANT, COORDINATOR [facility] Trans 2M [facility] 02/15/2016 10:00 AM Que Amaro MD Leb Trans 2M [facility] 04/10/2016 11:30 AM Tulio Marcelo MD Leb Gastro [facility] 09/15/2016 9:00 AM LAB, THREE L Lab [address] [place] [address] 09/15/2016 10:00 AM Madhu Eagle MD Leb [...] the message. You can also reach the international logistics coordinator after hours by calling (ask for the international logistics coordinator on-call). Discharge References/Attachments None documented in [...] 02/05/2016 9:18 AM EDT Transplant Progress Note tEhel Akins is a 65 y.o. male is [...] level. Will discharge with NU tube to [place] as per Urology recommendations. Will plan for [...] pneumonia or other acute cardiopulmonary process. ?? PRINCIPAL LAW CLERK: 12/29 CT a/p WO: 1. 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 This information will be conveyed to the family as well as DEDE Dukes. DEDE NGUYEN Account Executive Trainee for ICU's and ISCU Pager [phone] * John Keyes MD - 02/01/2016 1:32 PM EDT [...] VIR PRE-PROCEDURE VIR NOTE ADDENDUM Name: Ethel Aikns Date of : 1950 Procedure: Left nephrostogram [...] of : 1950 AGE 65 y.o. [address]: [address] [place] [phone] (home) [phone] (work) Mobile: Telephone Information: Referring Provider: No [...] MD at [facility] OR ??? Pro transplantation of kidney N/A 09/16/2015 @KIDNEY TRANSPLANT, WITHOUT RECIPIENT NEPHRECTOMY performed by Franko Larkin MD at [facility] OR ??? Pro transplant, prep cadaver renal graft N/A 09/16/2015 @PREPARATION CADAVERIC RENAL ALLOGRAFT performed by Franko Larkin MD at [facility] OR ??? N/A 09/16/2015 ORGAN ACQUISITION RENAL, CADAVERIC performed by Franko Larkin MD at [facility] OR Date/Procedure? Med's given/comments 01/08/2015: [...] Cardio: RRR Pulm: CTAB GI: s/nd/nt : Mroan out, urine clear, yellow from nephrostomy Extremities: [...] of Care Management ?? 01/30/16 Ethel Akins [id number] Date of : 1950 ? Admission Diagnosis: [...] Narrative None on file ?? Lives in [place], [place] in own home w/ spouse Mara and 26 y.o. Son. ? Code Status: Full. Advance Directives:none in [facility]. Admission Status: written and signed by attending as IPI. ?? Insurance: Medicare A,B and D through [employer] and BC/BS. Pharmacy: [address], [place] ?? Baseline Functional Status: self [...] changing needs. ? Malina Phelan RN, MSN Liaison EngineerScreen Printing Equipment Setter of Care Management Pager [phone] Phone: [phone] * John Keyes MD - 01/30/2016 8:50 [...] of breath. He was directly admitted to [facility] for further work-up and treatment. PMH/PSH: Past [...] EXTREMITY performed by Que Amaro MD at [facility] MAIN OR ??? Pro transplantation of kidney N/A 09/16/2015 @KIDNEY TRANSPLANT, WITHOUT RECIPIENT NEPHRECTOMY performed by Franko Larkin MD at [facility] OR ??? Pro transplant, prep cadaver renal graft N/A 09/16/2015 @PREPARATION CADAVERIC RENAL ALLOGRAFT performed by Franko Larkin MD at [facility] OR ??? N/A 09/16/2015 ORGAN ACQUISITION RENAL, CADAVERIC performed by Franko Larkin MD at [facility] OR MEDICATIONS: No current facility-administered medications on [...] to the planned procedure. Hand Hygiene: The concrete curer did perform hand hygiene prior to line insertion. Catheter type: PICC Lot number: [id number] Procedure Technique: Skin was prepped with chlorhexidine. [...] 02/04/2016 3:17 PM EDT DEDE informed by [facility] that patients PCP needs to co-sign [...] (PICC) Teaching Sheet Peripherally inserted central catheters (oiqx-uu-zfol) (PICC) are used when you need IV [...] midline catheter? PICC lines are used for jail treatments. PICC lines may be used for [...] can be set up via the nurse Liaison Engineer to help you. What are possible complications [...] Efficacy, Safety, Use, and Administration of [employer], [employer] 2005 * Plan of Care - [...] Urine culture ?? Urine culture Nephrostomy Urine [[id number]] (Abnormal) Collected: 01/30/16 0121 ? Lab Status: Edited Result - FINAL Specimen: Nephrostomy Urine Updated: 02/03/16830 ? Urine Culture -- (A) ? Less than 1,000 cfu/mL Coagulase negative Staphylococcus species Susceptibility testing not routinely performed for Coagulase Negative Staphylococcus species and other Gram Positive organisms from urine. Blood culture [[id number]] (Abnormal) Collected: 01/30/16 0020 ? Lab Status: Preliminary result Specimen: Blood Updated: 02/02/16810 ? Blood Culture -- (A) ? Coagulase negative Staphylococcus species isolated Isolate saved. If future testing is required, contact the Microbiology Bilingual Medical Receptionist. ? Gram Stain Aerobic -- (A) ? [...] follow up in ~4weeks for discussion of intermediate teacher management options -Please do not hesitate to [...] Arredondo * Consult Note - Eleanor Bird [facility] - 02/03/2016 8:27 AM EDT Clinical Pharmacist Note-Vancomycin Ethel Akins [id number] 1950 Ethel Akins is a 65 y.o. [...] have. Alternately, during off-hours you may call [phone] to contact a pharmacist. ELEANOR BIRD RPH Ext [phone] * Plan of Care - Tamela Mckeon [...] like to go to infusion suite at [facility]. Patient does not feel that he [...] didn't really feel. He had traveled to [place] with his family, and returned the day prior. He didn't have any focal symptoms at the time, denies abdominal pain, SOB, cough, CP. There was no other instrumentation between 01/02 and his admission now. He was admitted directly to the [facility] transplant surgical service for evaluation and management. [...] No pneumonia or other acute cardiopulmonary process. PRINCIPAL LAW CLERK: 12/29 CT a/p WO: 1. Transplant kidney [...] Sharmaine Eden MD Infectious Disease Fellow Pager #[phone] I have seen the patient and reviewed [...] -- patient OUTCOME EVALUATION NOTE: OUTCOME SUMMARY: Yahs states no pain, sleeping a lot throughout [...] follow. Prakash Che MD Urology Consult Pager [phone] * Plan of Care - Anastasiia Denney [...] without vomiting. Pt had spike fever 38.6@2310. call center receptionist MD De La [place] notified. Blood culture [...] EXTREMITY performed by Que Amaro MD at [facility] OR ??? Pro transplantation of kidney N/A 09/16/2015 @KIDNEY TRANSPLANT, WITHOUT RECIPIENT NEPHRECTOMY performed by Franko Larkin MD at [facility] OR ??? Pro transplant, prep cadaver renal graft N/A 09/16/2015 @PREPARATION CADAVERIC RENAL ALLOGRAFT performed by Franko Larkin MD at [facility] OR ??? N/A 09/16/2015 ORGAN ACQUISITION RENAL, CADAVERIC performed by Franko Larkin MD at [facility] OR Social History: Social History [...] follow. Prakash Che MD Urology Consult Pager [phone] * Consult Note - Jayde Tristan RPH - 01/29/2016 11:03 PM EDT Clinical Pharmacist Note - Vancomycin Ethel Akins [id number] 1950 Ethel Akins is a 65 y.o. [...] questions you may have. Alternately, during off-hours (9p-) you may call [phone] to contact a pharmacist. JAYDE TRISTAN RPH documented in this encounter Plan of Treatment Upcoming Encounters Date Type Department Care Team (Late st Contact Info) Description 06/22/2024 11:00 AM EST TH Visit (TeleHealth) Cardiology at [address] [place] [address] Byron Brown MD [facility] [place] [address] 07/14/2024 10:00 AM EST Hospital Encounter Non-Invasive Cardiology Lab [facility] [place] [address] Arrived Scheduled Referrals Name Type [...] - BLOOD ORDERABLES [facility] [place] [address] * Differential, Automated (02/05/2016 3:55 AM EDT) Pathologist [facility] Neutrophil % 67.5 % [facility] Neutrophil Absolute 5.66 1.50 - 6.30 x10(3)/[facility] LABORATORY Lymph % 20.4 % [facility] Lymphocytes Abs 1.7 1.0 - 3.6 x10(3)/[facility] LABORATORY Monocyte % 6.4 % [facility] Monocyte Abs 0.5 0.2 - 1.0 x10(3)/[facility] LABORATORY Eos % 4.2 % [facility] Eosinophils Abs 0.4 0.0 - 0.5 x10(3)/[facility] Basophil % 1.0 % [facility] Baso Absolute 0.1 0.0 - 0.2 x10(3)/[facility] Immature Gran % 0.50 % [facility] Comment: Immature granulocytes(IG's)percentage and absolute count will include metamyelocytes, myelocytes, and promyelocytes. Blood smears from CBCs yielding IG's will be scanned manually for concordance. If this scan disagrees with the automated IG or if promyelocytes are noted, a manual differential will be performed. Immature Gran Absolute 0.04 0.00 - 0.05 x10(3)/[facility] Blood specimen (specimen) 02/05/2016 3:55 AM EDT 02/05/2016 4:13 AM EDT Narrative Resulting Agency Comment Spec In Lab Que Amaro MD HEMATOLOGY ORD ERABLES [facility] [place] [address] * (ABNORMAL) Hemogram (02/05/2016 3:55 AM EDT) Pathologist [facility] White Blood Cell 8.4 4.0 - 10.0 x10(3)/[facility] LABORATORY Red Blood Cell 4.23(L) 4.63 - 6.08 x10(6)/mc L [facility] Hemoglobin 13.5(L) 13.7 - 17.5 [...] [facility] NRBC% auto 0.0 % [facility] NRBC Absolute 0.000 0.000 - 0.012 x10(3)/mc L [facility] Blood specimen (specimen) 02/05/2016 3:55 AM EDT 02/05/2016 4:13 AM EDT Narrative Resulting Agency Comment Spec In Lab Que Amaro MD HEMATOLOGY ORD MILAGROS [facility] [place] [address] * Phosphorus (02/05/2016 3:55 AM EDT) Phosphorus 2.9 2.5 - 4.5 mg/dL [facility] Blood specimen (specimen) 02/05/2016 3:55 AM EDT 02/05/2016 4:13 AM EDT Narrative Resulting Agency Comment Spec In Lab Que Amaro MD CHEMISTRY ORDBhargav JENNINGS Performing Organization Address City/[facility]/ZIP Co de Phone Number [facility] [place] [address] * (ABNORMAL) Magnesium (02/05/2016 3:55 AM EDT) [facility] Magnesium 0.57(L) 0.69 - 1.07 mmol/L [facility] Blood specimen (specimen) 02/05/2016 3:55 AM EDT 02/05/2016 4:13 AM EDT Narrative Resulting Agency Comment Spec In Lab Que Amaro MD CHEMISTRY ROCHELLE JENNINGS Performing Organization Address [facility] Co de Phone Number [facility] [place] [address] * (ABNORMAL) Basic Metabolic Panel (non-fasting) (02/05/2016 3:55 AM EDT) [facility] Glucose 135 65 - 199 mg/dL [facility] [...] LABORATORY Est Glomerular Filtration Rate 52(L) >=60 [facility] Comment: This [...] the following links into your internet browser. [email or web address] Blood specimen (specimen) 02/05/2016 3:55 AM EDT 02/05/2016 4:13 AM EDT Narrative Resulting Agency Comment Spec In Lab Que Amaro MD CHEMISTRY ROCHELLE JENNINGS [facility] [place] [address] * Place PICC Line: Contact Vascular Access Page [phone] Extremity to exclude: DO NOT use LEFT [...] to the planned procedure. Hand Hygiene: The concrete curer did perform hand hygiene prior to line insertion. Catheter type: PICC Lot number: [id number] Procedure Technique: Skin was prepped with chlorhexidine. [...] (02/04/2016 7:40 AM EDT) Tacrolimus 9.1 ng/mL [facility] Comment: Trough therapeutic: ??5-15 ng/mL Performed by ultra-performance liquid chromatography tandem mass spectrometry (UPLCMS/MS). Blood specimen (specimen) 02/04/2016 7:40 AM EDT 02/04/2016 11:48 AM EDT Narrative Resulting Agency Comment Spec In Lab Que JENNINGS Performing Organization Address [facility] Co de Phone Number [facility] [place] [address] * Phosphorus (02/04/2016 4:38 AM EDT) Phosphorus 2.9 2.5 - 4.5 mg/dL [facility] Blood specimen (specimen) 02/04/2016 4:38 AM EDT 02/04/2016 4:50 AM EDT Narrative Resulting Agency Comment Spec In Lab Que Amaro MD CHEMISTRY ROCHELLE JENNINGS Performing Organization Address [facility] Co de Phone Number [facility] [place] [address] * (ABNORMAL) Magnesium (02/04/2016 4:38 AM EDT) Magnesium 0.61(L) 0.69 - 1.07 mmol/L [facility] Blood specimen (specimen) 02/04/2016 4:38 AM EDT 02/04/2016 4:50 AM EDT Narrative Resulting Agency Comment Spec In Lab Que Amaro MD CHEMISTRY ROCHELLE JENNINGS Performing Organization Address City/[facility]/ZIP Co de Phone Number [facility] [place] [address] * Blood culture (02/04/2016 4:38 AM EDT) Blood Culture No growth at 5 days. [facility] Blood specimen (specimen) STRUCTURE OF RIGHT HAND / Unknown 02/04/2016 4:38 AM EDT 02/04/2016 5:17 AM EDT Narrative Resulting Agency Comment Spec In Lab Que Amaro MD MICROBIOLOGY - BLOOD ORDERABLES [facility] [place] [address] * (ABNORMAL) Basic Metabolic Panel (non-fasting) (02/04/2016 [...] LABORATORY Est Glomerular Filtration Rate 54(L) >=60 [facility] Comment: This [...] the following links into your internet browser. [email or web address] Blood specimen (specimen) 02/04/2016 4:38 AM EDT 02/04/2016 4:50 AM EDT Narrative Resulting Agency Comment Spec In Lab Que Amaro MD CHEMISTRY ORDBhargav JENNINGS [facility] [place] [address] * Differential, Automated (02/04/2016 4:38 AM EDT) Neutrophil % 68.1 % [facility] Neutrophil Absolute 4.82 1.50 - 6.30 x10(3)/[facility] LABORATORY Lymph % 20.3 % [facility] Lymphocytes Abs 1.4 1.0 - 3.6 x10(3)/[facility] LABORATORY Monocyte % 6.1 % [facility] Monocyte Abs 0.4 0.2 - 1.0 x10(3)/[facility] LABORATORY Eos % 4.1 % [facility] Eosinophils Abs 0.3 0.0 - 0.5 x10(3)/[facility] LABORATORY Basophil % 1.1 % [facility] Baso Absolute 0.1 0.0 - 0.2 x10(3)/[facility] LABORATORY Immature Gran % 0.30 % [facility] Comment: Immature granulocytes(IG's)percentage and absolute count will include metamyelocytes, myelocytes, and promyelocytes. Blood smears from CBCs yielding IG's will be scanned manually for concordance. If this scan disagrees with the automated IG or if promyelocytes are noted, a manual differential will be performed. Immature Gran Absolute 0.02 0.00 - 0.05 x10(3)/mcL [facility] Blood specimen (specimen) 02/04/2016 4:38 AM EDT 02/04/2016 4:50 AM EDT Narrative Resulting Agency Comment Spec In Lab Que Amaro MD HEMATOLOGY ORD ERABLES [facility] [place] [address] * (ABNORMAL) Hemogram (02/04/2016 4:38 AM EDT) [...] [facility] NRBC% auto 0.0 % [facility] NRBC Absolute 0.000 0.000 - 0.012 x10(3)/mc L [facility] Blood specimen (specimen) 02/04/2016 4:38 AM EDT 02/04/2016 4:50 AM EDT Narrative Resulting Agency Comment Spec In Lab Que Amaro MD HEMATOLOGY ORD ERABLES Performing Organization Address [facility] de Phone Number [facility] [place] [address] * Vancomycin, trough (02/03/2016 10:09 PM EDT) Pathologist [facility] Vancomycin, Trough 10.8 mg/L [facility] Comment: Therapeutic range for complicated [...] MD CHEMISTRY ORDE DICK Performing Organization Address [facility] Co de Phone Number [facility] [place] [address] * Differential, Automated (02/03/2016 5:02 AM EDT) Pathologist [facility] Neutrophil % 67.6 % [facility] Neutrophil Absolute 4.57 1.50 - 6.30 x10(3)/[facility] LABORATORY Lymph % 19.6 % [facility] Lymphocytes Abs 1.3 1.0 - 3.6 x10(3)/[facility] LABORATORY Monocyte % 6.6 % [facility] Monocyte Abs 0.4 0.2 - 1.0 x10(3)/[facility] LABORATORY Eos % 4.9 % [facility] Eosinophils Abs 0.3 0.0 - 0.5 x10(3)/[facility] LABORATORY Basophil % 1.2 % [facility] Baso Absolute 0.1 0.0 - 0.2 x10(3)/[facility] LABORATORY Immature Gran % 0.10 % [facility] Comment: Immature granulocytes(IG's)percentage and absolute count will include metamyelocytes, myelocytes, and promyelocytes. Blood smears from CBCs yielding IG's will be scanned manually for concordance. If this scan disagrees with the automated IG or if promyelocytes are noted, a manual differential will be performed. Immature Gran Absolute 0.01 0.00 - 0.05 x10(3)/[facility] LABORATORY Blood specimen (specimen) 02/03/2016 5:02 AM EDT 02/03/2016 5:24 AM EDT Narrative Resulting Agency Comment Spec In Lab Que Amaro MD HEMATOLOGY ORD ERABLES [facility] [place] [address] * (ABNORMAL) Hemogram (02/03/2016 5:02 AM EDT) [...] [facility] NRBC% auto 0.0 % [facility] NRBC Absolute 0.000 0.000 - 0.012 x10(3)/mc L [facility] Blood specimen (specimen) 02/03/2016 5:02 AM EDT 02/03/2016 5:24 AM EDT Narrative Resulting Agency Comment Spec In Lab Que Amaro MD HEMATOLOGY ORD ERABLES Performing Organization Address [facility] Co de Phone Number [facility] [place] [address] * Phosphorus (02/03/2016 5:02 AM EDT) Phosphorus 2.6 2.5 - 4.5 mg/dL [facility] Blood specimen (specimen) 02/03/2016 5:02 AM EDT 02/03/2016 5:24 AM EDT Narrative Resulting Agency Comment Spec In Lab Que Amaro MD CHEMISTRY ORDBhargav RABLENORE Performing Organization Address [facility] Co de Phone Number [facility] [place] [address] * (ABNORMAL) Magnesium (02/03/2016 5:02 AM EDT) Magnesium 0.54(L) 0.69 - 1.07 mmol/L [facility] Blood specimen (specimen) 02/03/2016 5:02 AM EDT 02/03/2016 5:24 AM EDT Narrative Resulting Agency Comment Spec In Lab Que Amaro MD CHEMISTRY ORDE DICK [facility] [place] [address] * Blood culture (02/03/2016 5:02 AM EDT) Pathologist [facility] Blood Culture No growth at 5 days. [facility] Blood specimen (specimen) PERIPHERAL BLOOD / Unknown 02/03/2016 5:02 AM EDT 02/03/2016 6:07 AM EDT Comment:R HAND Narrative Resulting Agency Comment Spec In Lab Que Amaro MD MICROBIOLOGY - BLOOD ORDERABLES Performing Organization Address [facility] Co de Phone Number [facility] [place] [address] * (ABNORMAL) Basic Metabolic Panel (non-fasting) (02/03/2016 5:02 AM EDT) [facility] Glucose 142 65 - 199 mg/dL [facility] [...] LABORATORY Est Glomerular Filtration Rate 59(L) >=60 [facility] Comment: This [...] the following links into your internet browser. [email or web address] Blood specimen (specimen) 02/03/2016 5:02 AM EDT 02/03/2016 5:24 AM EDT Narrative Resulting Agency Comment Spec In Lab Que Amaro MD CHEMISTRY ORDE RABLES Performing Organization Address [facility] Co de Phone Number [facility] [place] [address] * Urine culture Nephrostomy Urine (02/02/2016 3:46 PM EDT) Pathologist [facility] Urine Culture No growth (Less than 100 cfu/ml). [facility] Urine specimen from nephrostomy tube (specimen) 02/02/2016 3:46 PM EDT 02/02/2016 4:52 PM EDT Narrative Resulting Agency Comment Spec In Lab Que Amaro MD MICROBIOLOGY - GENERAL ORDERABLES Performing Organization Address [facility] Co de Phone Number [facility] [place] [address] * Differential, Automated (02/02/2016 8:09 AM EDT) Neutrophil % 64.2 % [facility] Neutrophil Absolute 4.23 1.50 - 6.30 x10(3)/[facility] LAB[facility] Lymph % 21.4 % [facility] Lymphocytes Abs 1.4 1.0 - 3.6 x10(3)/[facility] LAB[facility]ORY Monocyte % 7.1 % [facility] Monocyte Abs 0.5 0.2 - 1.0 x10(3)/[facility]OR[facility]ORY Eos % 5.8 % [facility] Eosinophils Abs 0.4 0.0 - 0.5 x10(3)/[facility]OR[facility]ORY Basophil % 1.2 % [facility] Baso Absolute 0.1 0.0 - 0.2 x10(3)/[facility] Immature Gran % 0.30 % [facility] Comment: Immature granulocytes(IG's)percentage and absolute count will include metamyelocytes, myelocytes, and promyelocytes. Blood smears from CBCs yielding IG's will be scanned manually for concordance. If this scan disagrees with the automated IG or if promyelocytes are noted, a manual differential will be performed. Immature Gran Absolute 0.02 0.00 - 0.05 x10(3)/[facility] Blood specimen (specimen) 02/02/2016 8:09 AM EDT 02/02/2016 8:28 AM EDT Narrative Resulting Agency Comment Spec In Lab Que Amaro MD HEMATOLOGY ORD ERABLES [facility] [place] [address] * (ABNORMAL) Hemogram (02/02/2016 8:09 AM EDT) White Blood Cell 6.6 4.0 - 10.0 x10(3)/ L [facility] Red Blood Cell 4.66 4.63 - 6.08 x10(6)/ L [facility] Hemoglobin 15.2 13.7 - 17.5 gm/dL [...] Platelet 202 145 - 370 x10(3)/mc L [facility] RDW Standard Deviation 47.8(H) 35.0 - 46.0 fL [facility] RDW coefficient of variation 14.5(H) 10.9 - 14.4 % [facility] Mean Platelet Volume 9.4 9.0 - 12.0 fL [facility] NRBC% auto 0.0 % [facility] NRBC Absolute 0.000 0.000 - 0.012 x10(3)/mc L [facility] Blood specimen (specimen) 02/02/2016 8:09 AM EDT 02/02/2016 8:28 AM EDT Narrative Resulting Agency Comment Spec In Lab Que Amaro MD HEMATOLOGY ORD ERABLES Performing Organization Address City/[facility]/ZIP Co de Phone Number [facility] [place] [address] * Phosphorus (02/02/2016 4:43 AM EDT) Phosphorus 2.8 2.5 - 4.5 mg/dL [facility] Blood specimen (specimen) 02/02/2016 4:43 AM EDT 02/02/2016 4:56 AM EDT Narrative Resulting Agency Comment Spec In Lab Que Amaro MD CHEMISTRY ORDBhargav JENNINGS Performing Organization Address [facility]/ZIP Co de Phone Number [facility] [place] [address] * (ABNORMAL) Magnesium (02/02/2016 4:43 AM EDT) Magnesium 0.62(L) 0.69 - 1.07 mmol/L [facility] Blood specimen (specimen) 02/02/2016 4:43 AM EDT 02/02/2016 4:56 AM EDT Narrative Resulting Agency Comment Spec In Lab Que Amaro MD CHEMISTRY ORDE RABLES Performing Organization Address [facility]/ZIP Co de Phone Number [facility] [place] [address] * Blood culture (02/02/2016 4:43 AM EDT) Blood Culture No growth at 5 days. [facility] Blood specimen (specimen) 02/02/2016 4:43 AM EDT 02/02/2016 9:01 AM EDT Comment:RH Narrative Resulting Agency Comment Spec In Lab Que Amaro MD MICROBIOLOGY - BLOOD ORDERABLES Performing Organization Address [facility] Co de Phone Number [facility] [place] [address] * (ABNORMAL) Basic Metabolic Panel (non-fasting) (02/02/2016 4:43 AM EDT) Glucose 138 65 - 199 [...] LABORATORY Est Glomerular Filtration Rate 51(L) >=60 [facility] Comment: This [...] the following links into your internet browser. [email or web address] Blood specimen (specimen) 02/02/2016 4:43 AM EDT 02/02/2016 4:56 AM EDT Narrative Resulting Agency Comment Spec In Lab Que Amaro MD CHEMISTRY ROCHELLE JENNINGS Performing Organization Address [facility] Co de Phone Number [facility] [place] [address] * Vancomycin, trough (02/01/2016 10:32 PM EDT) Vancomycin, Trough 9.6 mg/L [facility] Comment: Therapeutic range for complicated [...] MD CHEMISTRY ORDERAB LES Performing Organization Address [facility] Co de Phone Number [facility] [place] [address] * IR all procedures (02/01/2016 11:37 AM [...] was prepped and draped in supine position. Customer Service Sales Associate image obtained. ??7 cc 1% lidocaine SQ [...] Tacrolimus level (02/01/2016 8:16 AM EDT) Pathologist [facility] Tacrolimus 5.8 ng/mL [facility] Comment: Trough therapeutic: ??5-15 ng/mL Performed by ultra-performance liquid chromatography tandem mass spectrometry (UPLCMS/MS). Blood specimen (specimen) 02/01/2016 8:16 AM EDT 02/01/2016 11:00 AM EDT Narrative Resulting Agency Comment Spec In Lab Que Amaro MD CHEMISTRY ROCHELLE JENNINGS [facility] [place] [id number] * Differential, Automated (02/01/2016 5:35 AM EDT) [facility] Neutrophil % 59.3 % [facility] Neutrophil Absolute 4.05 1.50 - 6.30 x10(3)/[facility] LAB[facility] Lymph % 22.3 % [facility] Lymphocytes Abs 1.5 1.0 - 3.6 x10(3)/[facility] Monocyte % 11.7 % [facility] Monocyte Abs 0.8 0.2 - 1.0 x10(3)/[facility] Eos % 5.0 % [facility] Eosinophils Abs 0.3 0.0 - 0.5 x10(3)/[facility] Basophil % 1.3 % [facility] Baso Absolute 0.1 0.0 - 0.2 x10(3)/[facility] Immature Gran % 0.40 % [facility] Comment: Immature granulocytes(IG's)percentage and absolute count will include metamyelocytes, myelocytes, and promyelocytes. Blood smears from CBCs yielding IG's will be scanned manually for concordance. If this scan disagrees with the automated IG or if promyelocytes are noted, a manual differential will be performed. Immature Gran Absolute 0.03 0.00 - 0.05 x10(3)/[facility] Blood specimen (specimen) 02/01/2016 5:35 AM EDT 02/01/2016 6:03 AM EDT Narrative Resulting Agency Comment Spec In Lab Que Amaro MD HEMATOLOGY ORD ERABLES [facility] [place] [address] * (ABNORMAL) Hemogram (02/01/2016 5:35 AM EDT) White Blood Cell 6.8 4.0 - 10.0 x10(3)/mc L [facility] Red Blood Cell 4.52(L) 4.63 - 6.08 x10(6)/mc L [facility] Hemoglobin 14.3 13.7 - 17.5 [...] HOSPITAL LABORATORY Platelet 161 145 - 370 x10(3)/mc L [facility] RDW Standard Deviation 48.5(H) 35.0 - 46.0 fL [facility] RDW coefficient of variation 14.5(H) 10.9 - 14.4 % [facility] Mean Platelet Volume 9.7 9.0 - 12.0 fL [facility] NRBC% auto 0.0 % [facility] NRBC Absolute 0.000 0.000 - 0.012 x10(3)/mc L [facility] Blood specimen (specimen) 02/01/2016 5:35 AM EDT 02/01/2016 6:03 AM EDT Narrative Resulting Agency Comment Spec In Lab Que Amaro MD HEMATOLOGY ORD ERABLES [facility] [address] [place] [address] * (ABNORMAL) Blood culture (02/01/2016 5:35 AM EDT) Blood Culture Coagulase negative Staphylococcus species isolated Isolate saved. If future testing is required, contact the Microbiology Bilingual Medical Receptionist. (A) [facility] Gram Stain [...] Sensitive Comment:Gentamicin i s not appropriate for Meigs-therapy. Coagulase Negative Staphylococcus species Levofloxacin MICROSCAN METHOD Sensitive Coagulase Negative Staphylococcus species Oxacillin MICROSCAN METHOD Resistant Coagulase Negative Staphylococcus species Penicillin MICROSCAN METHOD Resistant Coagulase Negative Staphylococcus species Tetracycline MICROSCAN METHOD Sensitive Coagulase Negative Staphylococcus species Trimethoprim/Sulfa MICROSCAN METHOD Sensitive Coagulase Negative Staphylococcus species Vancomycin MICROSCAN METHOD Sensitive Que Amaro MD MICROBIOLOGY - BLOOD ORDERABLES [facility] [place] [address] * (ABNORMAL) Basic Metabolic Panel (non-fasting) (02/01/2016 [...] LABORATORY Est Glomerular Filtration Rate 50(L) >=60 [facility] Comment: This [...] the following links into your internet browser. [email or web address] Blood specimen (specimen) 02/01/2016 5:35 AM EDT 02/01/2016 6:03 AM EDT Narrative Resulting Agency Comment Spec In Lab Que Amaro MD CHEMISTRY ORDBhargav JENNINGS Performing Organization Address City/[facility] Co de Phone Number [facility] [place] [address] * Phosphorus (02/01/2016 5:35 AM EDT) Phosphorus 2.7 2.5 - 4.5 mg/dL [facility] Blood specimen (specimen) 02/01/2016 5:35 AM EDT 02/01/2016 6:03 AM EDT Narrative Resulting Agency Comment Spec In Lab Que Amaro MD CHEMISTRY ORDBhargav JENNINGS Performing Organization Address [facility] Co de Phone Number [facility] [place] [address] * Magnesium (02/01/2016 5:35 AM EDT) Magnesium 0.70 0.69 - 1.07 mmol/L [facility] Blood specimen (specimen) 02/01/2016 5:35 AM EDT 02/01/2016 6:03 AM EDT Narrative Resulting Agency Comment Spec In Lab Que Amaro MD CHEMISTRY ORDBhargav JENNINGS Performing Organization Address [facility] Co de Phone Number [facility] [place] [address] * Hepatic Function Panel (02/01/2016 5:35 AM [...] MD CHEMISTRY ORDBhargav JENNINGS Performing Organization Address [facility] de Phone Number [facility] [place] [address] * APTT (02/01/2016 5:35 AM EDT) Partial Thromboplastin Time 29 25 - 35 sec [facility] Comment: The recommended therapeutic range for full dose, unfractionated heparin at [facility] is 80 ? [...] MD HEMATOLOGY ORD ERABLES Performing Organization Address [facility] Co de Phone Number [facility] [place] [address] * Prothrombin Time (02/01/2016 5:35 AM EDT) [...] MD HEMATOLOGY ORD ERABLES Performing Organization Address [facility] Co de Phone Number [facility] [place] [address] * Blood culture (01/31/2016 12:28 AM EDT) Blood Culture No growth at 5 days. [facility] Blood specimen (specimen) STRUCTURE OF RIGHT FOREARM / Unknown 01/31/2016 12:28 AM EDT 01/31/2016 3:02 AM EDT Narrative Resulting Agency Comment Spec In Lab Que Amaro MD MICROBIOLOGY - BLOOD ORDERABLES Performing Organization Address [facility] Co de Phone Number [facility] [place] [address] * BK Quant Blood Result (01/31/2016 12:12 [...] DNA isolated from plasma was performed using Scribz BKV (ASR) reagents and the [employer] Mintigo 7500 FAST Real-Time PCR System. In addition, the ??PCR product sequence is confirmed using physical properties (melting curve analysis). This test was developed and its performance determined by the [facility] Molecular Pathology Laboratory. [...] City/[facility]/ZIP Co de Phone Number [facility] [place] [address] * Antibody screen (01/31/2016 12:12 AM EDT) Ab Screen Interp Negative [facility] Expires at [id number] on: 02/03/2016 [facility] Blood specimen (specimen) 01/31/2016 12:12 AM EDT 01/31/2016 12:45 AM EDT Narrative Resulting Agency Comment Spec In Lab Que Amaro MD BLOOD BANK LAB ORDERABLES Performing Organization Address City/[facility]/ZIP Co de Phone Number [facility] [place] [address] * ABO/Rh Typing (01/31/2016 12:12 AM EDT) ABORH Type AB Pos [facility] Blood specimen (specimen) 01/31/2016 12:12 AM EDT 01/31/2016 12:45 AM EDT Narrative Resulting Agency Comment Spec In Lab Que Amaro MD BLOOD BANK LAB ORDERABLES Performing Organization Address City/[facility]/ZIP Co de Phone Number [facility] [place] [address] * Differential, Automated (01/31/2016 12:12 AM EDT) Pathologist [facility] Neutrophil % 70.8 % [facility] Neutrophil Absolute 4.50 1.50 - 6.30 x10(3)/[facility] LABORATORY Lymph % 15.9 % [facility] Lymphocytes Abs 1.0 1.0 - 3.6 x10(3)/[facility] Monocyte % 10.8 % [facility] Monocyte Abs 0.7 0.2 - 1.0 x10(3)/[facility]ORATORY Eos % 1.4 % [facility] Eosinophils Abs 0.1 0.0 - 0.5 x10(3)/[facility] Basophil % 0.6 % [facility] Baso Absolute 0.0 0.0 - 0.2 x10(3)/[facility]ORATORY Immature Gran % 0.50 % [facility] Comment: Immature granulocytes(IG's)percentage and absolute count will include metamyelocytes, myelocytes, and promyelocytes. Blood smears from CBCs yielding IG's will be scanned manually for concordance. If this scan disagrees with the automated IG or if promyelocytes are noted, a manual differential will be performed. Immature Gran Absolute 0.03 0.00 - 0.05 x10(3)/[facility]ATORY Blood specimen (specimen) 01/31/2016 12:12 AM EDT 01/31/2016 12:37 AM EDT Narrative Resulting Agency Comment Spec In Lab Que Amaro MD HEMATOLOGY ORD ERABLES [facility] [place] [address] * (ABNORMAL) Hemogram (01/31/2016 12:12 AM EDT) Pathologist [facility] White Blood Cell 6.4 4.0 - 10.0 x10(3)/[facility] LABORATORY Red Blood Cell 4.34(L) 4.63 - [...] HOSPITAL LABORATORY Platelet 140(L) 145 - 370 x10(3)/[facility] LABORATORY RDW Standard Deviation 48.9(H) 35.0 - 46.0 fL [facility] RDW coefficient of variation 14.3 10.9 - 14.4 % [facility] Mean Platelet Volume 10.0 9.0 - 12.0 fL [facility] NRBC% auto 0.0 % [facility] NRBC Absolute 0.000 0.000 - 0.012 x10(3)/[facility] LABORATORY Blood specimen (specimen) 01/31/2016 12:12 AM EDT 01/31/2016 12:37 AM EDT Narrative Resulting Agency Comment Spec In Lab Que Amaro MD HEMATOLOGY ORD ERABLES [facility] [place] [address] * Blood culture (01/31/2016 12:12 AM EDT) Blood Culture No growth at 5 days. [facility] Blood specimen (specimen) RIGHT [place] REGION STRUCTURE / Unknown 01/31/2016 12:12 AM EDT 01/31/2016 3:01 AM EDT Narrative Resulting Agency Comment Spec In Lab Que Amaro MD MICROBIOLOGY - BLOOD ORDERABLES Performing Organization Address [facility] Co de Phone Number [facility] [place] [address] * (ABNORMAL) Hepatic Function Panel (01/31/2016 12:12 AM EDT) [facility] Protein, Total 6.6 6.1 - 8.0 gm/dL [...] MD CHEMISTRY ORDE RABLENORE Performing Organization Address [facility] Co de Phone Number [facility] [place] [address] * (ABNORMAL) Phosphorus (01/31/2016 12:12 AM EDT) [facility] Phosphorus 2.2(L) 2.5 - 4.5 mg/dL [facility] Blood specimen (specimen) 01/31/2016 12:12 AM EDT 01/31/2016 12:37 AM EDT Narrative Resulting Agency Comment Spec In Lab Que Amaro MD CHEMISTRY ORDE DICK Performing Organization Address City/[facility]/ZIP Co de Phone Number [facility] [place] [address] * (ABNORMAL) Magnesium (01/31/2016 12:12 AM EDT) Magnesium 0.65(L) 0.69 - 1.07 mmol/L [facility] Blood specimen (specimen) 01/31/2016 12:12 AM EDT 01/31/2016 12:37 AM EDT Narrative Resulting Agency Comment Spec In Lab Que Amaro MD CHEMISTRY ROCHELLE JENNINGS [facility] [place] [address] * (ABNORMAL) Basic Metabolic Panel (non-fasting) (01/31/2016 12:12 AM EDT) Pathologist [facility] Glucose 189 65 - 199 mg/dL [facility] [...] LABORATORY Est Glomerular Filtration Rate 45(L) >=60 [facility] Comment: This [...] the following links into your internet browser. [email or web address] Blood specimen (specimen) 01/31/2016 12:12 AM EDT 01/31/2016 12:37 AM EDT Narrative Resulting Agency Comment Spec In Lab Que Amaro MD CHEMISTRY ORDBhargav JENNINGS Performing Organization Address [facility] de Phone Number [facility] [place] [address] * APTT (01/31/2016 12:12 AM EDT) Partial Thromboplastin Time 30 25 - 35 sec [facility] Comment: The recommended therapeutic range for full dose, unfractionated heparin at [facility] is 80 ? [...] MD HEMATOLOGY ORD ERABLES Performing Organization Address [facility] de Phone Number [facility] [place] [address] * Prothrombin Time (01/31/2016 12:12 AM EDT) [...] HEMATOLOGY ORD ERABLES [facility] [place] [address] * (ABNORMAL) Urinalysis with reflex Culture (01/31/2016 [...] LABORATORY Leukocytes, Urine Dipstick Negative Negative [facility] LABORATORY Appearance, Urine Dipstick Clear Clear [facility] Specific Fidelity Urine Automated 1.010 1.002 - 1.030 [facility]OUNT [...] URINE ORDERABL ES [facility] [place] [address] * (ABNORMAL) Urinalysis with reflex Culture (01/31/2016 [...] Clear Clear [facility] Specific [employer] Urine Automated 1.011 1.002 - 1.030 MOUNT [...] URINE ORDERABL ES [facility] [place] [address] * XR Chest PA & Lateral (Generic) [...] real-time PCR assay was performed in the [facility] Molecular Pathology Laboratory using ??NIK?? AmpliPrep/NIK? ? TaqMan?? CMV Test ([employer] Linear Range: 137 IU/mL - 9,100,000 IU/mL (2.14 log ? 6.96 log IU/mL) Limit of Detection: 91 IU/mL (1.96 log IU/mL) [facility] Blood specimen (specimen) 01/30/2016 10:43 AM EDT 02/01/2016 3:06 PM EDT Narrative Resulting Agency Comment Spec In Lab Que JENNINGS [facility] [place] [address] * (ABNORMAL) Differential, Automated (01/30/2016 7:42 AM EDT) Neutrophil % 76.1 % [facility] Neutrophil Absolute 5.24 1.50 - 6.30 x10(3)/mc L [facility] Lymph % 11.3 % [facility] Lymphocytes Abs 0.8(L) 1.0 - 3.6 x10(3)/ L [facility] Monocyte % 11.3 % [facility] Monocyte Abs 0.8 0.2 - 1.0 x10(3)/ L [facility] Eos % 0.4 % [facility] Eosinophils Abs 0.0 0.0 - 0.5 x10(3)/ L [facility] Basophil % 0.6 % [facility] Baso Absolute 0.0 0.0 - 0.2 x10(3)/mc L [facility] Immature [...] Absolute 0.02 0.00 - 0.05 x10(3)/mc L [facility] Blood specimen (specimen) 01/30/2016 7:42 AM EDT 01/30/2016 7:53 AM EDT Narrative Resulting Agency Comment Spec In Lab Madhu Eagle MD HEMATOLOGY ORDERA BLES Performing Organization Address City/[facility] Co de Phone Number [facility] [place] [address] * (ABNORMAL) Hemogram (01/30/2016 7:42 AM EDT) White Blood Cell 6.9 4.0 - 10.0 x10(3)/mc L [facility] [...] [facility]PITAL LABORATORY Platelet 145 145 - 370 x10(3)/mc L [facility] RDW Standard Deviation 48.1(H) 35.0 - 46.0 fL [facility] RDW coefficient of variation 14.6(H) 10.9 - 14.4 % [facility] Mean Platelet Volume 9.1 9.0 - 12.0 fL [facility] NRBC% auto 0.0 % [facility] NRBC Absolute 0.000 0.000 - 0.012 x10(3)/mc L [facility] Blood specimen (specimen) 01/30/2016 7:42 AM EDT 01/30/2016 7:53 AM EDT Narrative Resulting Agency Comment Spec In Lab Madhu Eagle MD HEMATOLOGY ORDERA BLES Performing Organization Address City/[facility] Co de Phone Number [facility] [place] [address] * (ABNORMAL) Phosphorus (01/30/2016 7:42 AM EDT) [facility] Phosphorus 2.3(L) 2.5 - 4.5 mg/dL [facility] Blood specimen (specimen) 01/30/2016 7:42 AM EDT 01/30/2016 7:53 AM EDT Narrative Resulting Agency Comment Spec In Lab Madhu Eagle MD CHEMISTRY ORDERAB LES Performing Organization Address [facility] Co de Phone Number [facility] [place] [address] * (ABNORMAL) Magnesium (01/30/2016 7:42 AM EDT) [facility] Magnesium 0.63(L) 0.69 - 1.07 mmol/L [facility] Blood specimen (specimen) 01/30/2016 7:42 AM EDT 01/30/2016 7:53 AM EDT Narrative Resulting Agency Comment Spec In Lab Madhu Eagle MD CHEMISTRY ORDERAB LES Performing Organization Address [facility] de Phone Number [facility] [place] [address] * (ABNORMAL) Basic Metabolic Panel (non-fasting) (01/30/2016 7:42 AM EDT) [facility] Glucose 163 65 - 199 mg/dL [facility] [...] LABORATORY Est Glomerular Filtration Rate 41(L) >=60 [facility] Comment: This [...] the following links into your internet browser. [email or web address] Blood specimen (specimen) 01/30/2016 7:42 AM EDT 01/30/2016 7:53 AM EDT Narrative Resulting Agency Comment Spec In Lab Madhu Eagle MD CHEMISTRY ORDERAB LES [facility] [place] [address] * Tacrolimus level (01/30/2016 7:42 AM EDT) Tacrolimus 6.2 ng/mL [facility] Comment: Trough therapeutic: ??5-15 ng/mL Performed by ultra-performance liquid chromatography tandem mass spectrometry (UPLCMS/MS). Blood specimen (specimen) 01/30/2016 7:42 AM EDT 01/30/2016 10:54 AM EDT Narrative Resulting Agency Comment Spec In Lab Madhu Eagle MD CHEMISTRY ORDERAB LES Performing Organization Address City/[facility] Co de Phone Number [facility] [place] [address] * (ABNORMAL) Urine culture Nephrostomy Urine (01/30/2016 [...] MICROBIOLOGY - GENERAL ORDERABLES Performing Organization Address [facility] Co de Phone Number [facility] [place] [address] * (ABNORMAL) Urinalysis with reflex Culture (01/30/2016 [...] Clear Clear [facility] Specific [place] Urine Automated 1.004 1.002 - 1.030 M[facility] [...] URINE ORDERABL ES [facility] [place] [address] * (ABNORMAL) Blood culture (01/30/2016 12:20 AM EDT) Blood Culture Coagulase negative Staphylococcus species isolated Isolate saved. If future testing is required, contact the Microbiology Bilingual Medical Receptionist. (A) [facility] Gram Stain [...] Resistant Comment:Gentamicin i s not appropriate for Meigs-therapy. Coagulase Negative Staphylococcus species Levofloxacin MICROSCAN METHOD Resistant Coagulase Negative Staphylococcus species Oxacillin MICROSCAN METHOD Resistant Coagulase Negative Staphylococcus species Penicillin MICROSCAN METHOD Resistant Coagulase Negative Staphylococcus species Tetracycline MICROSCAN METHOD Sensitive Coagulase Negative Staphylococcus species Trimethoprim/Sulfa MICROSCAN METHOD Resistant Coagulase Negative Staphylococcus species Vancomycin MICROSCAN METHOD Sensitive Madhu Eagle MD MICROBIOLOGY - BL OOD ORDERABLES Performing Organization Address City/[facility]/ZIP Co de Phone Number [facility] [place] [address] * (ABNORMAL) Hepatic Function Panel (01/29/2016 11:37 PM EDT) [facility] Protein, Total 7.3 6.1 - 8.0 gm/dL [...] MD CHEMISTRY ORDERAB LES Performing Organization Address [facility]/ZIP Co de Phone Number [facility] [place] [address] * (ABNORMAL) Differential, Automated (01/29/2016 11:37 PM EDT) [facility] Neutrophil % 80.0 % [facility] Neutrophil Absolute 6.02 1.50 - 6.30 x10(3)/mc L [facility] Lymph % 9.3 % [facility] Lymphocytes Abs 0.7(L) 1.0 - 3.6 x10(3)/[facility] Monocyte % 9.2 % [facility] Monocyte Abs 0.7 0.2 - 1.0 x10(3)/[facility] Eos % 0.3 % [facility] Eosinophils Abs 0.0 0.0 - 0.5 x10(3)/[facility] Basophil % 0.8 % [facility] Baso Absolute 0.1 0.0 - 0.2 x10(3)/[facility] Immature Gran % 0.40 % [facility] Comment: Immature granulocytes(IG's)percentage and absolute count will include metamyelocytes, myelocytes, and promyelocytes. Blood smears from CBCs yielding IG's will be scanned manually for concordance. If this scan disagrees with the automated IG or if promyelocytes are noted, a manual differential will be performed. Immature Gran Absolute 0.03 0.00 - 0.05 x10(3)/[facility] Blood specimen (specimen) 01/29/2016 11:37 PM EDT 01/29/2016 11:55 PM EDT Narrative Resulting Agency Comment Spec In Lab Madhu Eagle MD HEMATOLOGY ORDERA BLES Performing Organization Address City/State/[facility] Co de Phone Number [facility] [place] [address] * (ABNORMAL) Hemogram (01/29/2016 11:37 PM EDT) White Blood Cell 7.5 4.0 - 10.0 x10(3)/[facility] Red Blood Cell 4.66 4.63 - 6.08 x10(6)/[facility] Hemoglobin 14.4 13.7 - 17.5 gm/dL [...] [facility] NRBC% auto 0.0 % [facility] NRBC Absolute 0.000 0.000 - 0.012 x10(3)/mc L [facility] Blood specimen (specimen) 01/29/2016 11:37 PM EDT 01/29/2016 11:55 PM EDT Narrative Resulting Agency Comment Spec In Lab Madhu Eagle MD HEMATOLOGY ORDERA BLES [facility] [place] [address] * (ABNORMAL) Basic Metabolic Panel (non-fasting) (01/29/2016 [...] LABORATORY Est Glomerular Filtration Rate 39(L) >=60 [facility] Comment: This [...] the following links into your internet browser. [email or web address] Blood specimen (specimen) 01/29/2016 11:37 PM EDT 01/29/2016 11:55 PM EDT Narrative Resulting Agency Comment Spec In Lab Madhu Eagle MD CHEMISTRY ORDERAB LES Performing Organization Address City/[facility]/ZIP Co de Phone Number [facility] [place] [address] * (ABNORMAL) Phosphorus (01/29/2016 11:37 PM EDT) Phosphorus 2.1(L) 2.5 - 4.5 mg/dL [facility] Blood specimen (specimen) 01/29/2016 11:37 PM EDT 01/29/2016 11:55 PM EDT Narrative Resulting Agency Comment Spec In Lab Madhu Eagle MD CHEMISTRY ORDERAB LES Performing Organization Address City/[facility]/ZIP Co de Phone Number [facility] [place] [address] * (ABNORMAL) Magnesium (01/29/2016 11:37 PM EDT) Magnesium 0.39(Criti raulito) 0.69 - 1.07 mmol/L [facility] Comment: Result rechecked. Called by: jde, Read back by: Magaly Cobian, Date/Time:01/30/16 00:33. Blood specimen (specimen) 01/29/2016 11:37 PM EDT 01/29/2016 11:55 PM EDT Narrative Resulting Agency Comment Spec In Lab Madhu Eagle MD CHEMISTRY ORDERAB LES Performing Organization Address [facility]/ZIP Co de Phone Number [facility] [place] [address] * (ABNORMAL) Blood culture (01/29/2016 11:35 PM EDT) Blood Culture Coagulase negative Staphylococcus species detected by PCR Isolate saved. If future testing is required, contact the Microbiology Bilingual Medical Receptionist. (A) [facility] Gram Stain [...] Resistant Comment:Gentamicin i s not appropriate for Meigs-therapy. Coagulase Negative Staphylococcus species Levofloxacin MICROSCAN METHOD Resistant Coagulase Negative Staphylococcus species Oxacillin MICROSCAN METHOD Resistant Coagulase Negative Staphylococcus species Penicillin MICROSCAN METHOD Resistant Coagulase Negative Staphylococcus species Tetracycline MICROSCAN METHOD Sensitive Coagulase Negative Staphylococcus species Trimethoprim/Sulfa MICROSCAN METHOD Resistant Coagulase Negative Staphylococcus species Vancomycin MICROSCAN METHOD Sensitive Madhu Eagle MD MICROBIOLOGY - BL OOD ORDERABLES [facility] [place] [address] * (ABNORMAL) Urinalysis with reflex Culture (01/29/2016 [...] LABORATORY Leukocytes, Urine Dipstick Moderate(A) Negative [facility] Appearance, Urine Dipstick Clear Clear [facility] Specific [place] Urine Automated 1.012 1.002 - 1.030 [facility] Color, Urine Dipstick Yellow Yellow [facility] RBC, Urine 2 0 - 3 /HPF [facility] WBC, Urine 11(H) 0 - 3 /HPF [facility] Reflex to Culture Dup Culture [facility] Urine specimen obtained by clean catch procedure (specimen) 01/29/2016 11:06 PM EDT 01/29/2016 11:36 PM EDT Narrative Resulting Agency Comment Spec In Lab Madhu Eagle MD URINE ORDERABLES [facility] [place] [address] documented in this encounter Visit Diagnoses Diagnosis [...] 09 (Given - Provider: Brandee Akins RN) potassium [...] OPEN, Routine 2141 (Given - Provider: Anatoly Chapman, JADEN) 2017 (Given - Provider: Anatoly Chpaman RN) valGANciclovir (VALCYTE) tablet 450 mg 450 [...] 2016 (Given - Provider: Anatoly Chapman RN) 0907 (Given - Provider: Brandee Akins RN) ondansetron (ZOFRAN) injection 4 mg 4 mg, Intravenous, EVERY 8 HOURS PRN, Starting on Thu01/30/16 at 2019, Until Thu02/05/16 at 1427, Nausea documented in this encounter Care Teams Domestic Housekeeper Relationship Specialty Start Date End Date Urbano Denis DO [address] [place] [address] PCP - General 09/03/12 03/17/22 Ruchi Valles RN Nurse Clinic Transplant Surgery 07/30/15 documented as of this encounter
--- OUTSIDE RECORDS SUMMARY | 2024-05-16 17:34 | XMS_ITS | Encounter Summary ---
Author Organization [facility] [place] [address] Care Team Providers Care Shot Packer Name Role Phone Urbano Denis DO Primary Care Provider [phone] Encounter Details Date Type Department Care Team (Latest Contact Info) Description 01/11/2016 9:30 AM EDT Laboratory Appointment Lab [address] [place] [address] Kidney replaced by transplant Social [...] EST TH Visit (TeleHealth) Cardiology at [address] [address] Byron Brown MD [facility] [place] [address] 07/14/2024 10:00 AM EST Hospital Encounter Non[place] [address] Arrived documented as of this [...] cfu/ml). [facility] Urine specimen (specimen) 01/11/2016 9:33 AM EDT 01/11/2016 10:30 AM EDT Narrative Resulting Agency Comment Spec In Lab Que Amaro MD MICROBIOLOGY - GENERAL ORDERABLES Performing Organization Address [facility] Co de Phone Number [facility] [place] [address] * (ABNORMAL) Protein/Creatinine Ratio, urine (01/11/2016 9:33 [...] MD URINE ORDERABL ES Performing Organization Address [facility] Co de Phone Number [facility] [place] [address] * (ABNORMAL) Urinalysis with reflex Culture (01/11/2016 [...] CENTER LABORATORY Leukocytes, Urine Dipstick Small(A) Negative [facility] Appearance, Urine Dipstick Clear Clear [facility] Specific [place] Urine Automated 1.015 1.002 - 1.030 [facility] [...] URINE ORDERABL ES [facility] [place] [address] * BK Quant Blood Result (01/11/2016 9:04 [...] DNA isolated from plasma was performed using Apsmart BKV (ASR) reagents and the Applied Nu-B-2B 7500 FAST Real-Time PCR System. In addition, [...] testing. [facility] Comment: [VERIFIED DATE]01.22.16 Verified By:Nella Evans (Electronic Signature) Blood specimen (specimen) 01/11/2016 9:04 AM EDT 01/11/2016 9:45 AM EDT Narrative Resulting Agency Comment Spec In Lab Que Amaro MD HEMATOLOGY ORD ERABLES [facility] [place] [address] * Differential, Automated (01/11/2016 9:04 AM EDT) Neutrophil % 69.7 % [facility] Neutrophil Absolute 3.82 1.50 - 6.30 x10(3)/[facility] Lymph % 21.2 % [facility] Lymphocytes Abs 1.2 1.0 - 3.6 x10(3)/[facility] Monocyte % 5.1 % [facility] Monocyte Abs 0.3 0.2 - 1.0 x10(3)/[facility] Eos % 1.8 % [facility] Eosinophils Abs 0.1 0.0 - 0.5 x10(3)/[facility] Basophil % 2.0 % [facility] Baso Absolute 0.1 0.0 - 0.2 x10(3)/[facility] Immature Gran % 0.20 % [facility] Comment: Immature granulocytes(IG's)percentage and absolute count will include metamyelocytes, myelocytes, and promyelocytes. Blood smears from CBCs yielding IG's will be scanned manually for concordance. If this scan disagrees with the automated IG or if promyelocytes are noted, a manual differential will be performed. Immature Gran Absolute 0.01 0.00 - 0.05 x10(3)/mcL [facility] Blood specimen (specimen) 01/11/2016 9:04 AM EDT 01/11/2016 9:11 AM EDT Narrative Resulting Agency Comment Spec In Lab Que Amaro MD HEMATOLOGY ORD ERABLES [facility] [place] [address] * (ABNORMAL) Hemogram (01/11/2016 9:04 AM EDT) White Blood Cell 5.5 4.0 - 10.0 x10(3)/mc L [facility] Red Blood Cell 4.47(L) 4.63 - 6.08 x10(6)/mc L [facility] Hemoglobin 14.0 13.7 - 17.5 gm/dL [facility] Hematocrit 40.9 40.0 - 51.0 % [facility] Mean Cell Volume 91.5 79.0 - 92.0 fL [facility] Mean Cell Hemoglobin 31.3 25.6 - 32.2 pg [facility] Mean Cell Hemoglobin Concentration 34.2 32.0 - 36.5 gm/dL [facility] Platelet 180 145 - 370 x10(3)/mc L [facility] RDW Standard Deviation 47.2(H) 35.0 - 46.0 fL [facility] RDW coefficient of variation 14.4 10.9 - 14.4 % [facility] Mean Platelet Volume 9.7 9.0 - 12.0 fL [facility] Blood specimen (specimen) 01/11/2016 9:04 AM EDT 01/11/2016 9:11 AM EDT Narrative Resulting Agency Comment Spec In Lab Que Amaro MD HEMATOLOGY ORD ERABLES [facility] [place] [address] * (ABNORMAL) Comprehensive metabolic panel (non-fasting) (01/11/2016 [...] the following links into your internet browser. [email or web address] Blood specimen (specimen) 01/11/2016 9:04 AM EDT 01/11/2016 9:10 AM EDT Narrative Resulting Agency Comment Spec In Lab Que Amaro MD CHEMISTRY ROCHELLE JENNINGS Performing Organization Address [facility] Co de Phone Number [facility] [place] [address] * (ABNORMAL) Magnesium (01/11/2016 9:04 AM EDT) Magnesium 0.46(L) 0.69 - 1.07 mmol/L [facility] Blood specimen (specimen) 01/11/2016 9:04 AM EDT 01/11/2016 9:10 AM EDT Narrative Resulting Agency Comment Spec In Lab Que Amaro MD CHEMISTRY ROCHELLE JENNINGS Performing Organization Address City/[facility]/ZIP Co de Phone Number [facility] [place] [address] * Phosphorus (01/11/2016 9:04 AM EDT) Phosphorus 2.7 2.5 - 4.5 mg/dL [facility] Blood specimen (specimen) 01/11/2016 9:04 AM EDT 01/11/2016 9:10 AM EDT Narrative Resulting Agency Comment Spec In Lab Que Amaro MD CHEMISTRY ORDBhargav JENNINGS [facility] [place] [address] * (ABNORMAL) Uric acid (01/11/2016 9:04 AM EDT) Uric Acid 8.8(H) 3.5 - 8.5 mg/dL [facility] Blood specimen (specimen) 01/11/2016 9:04 AM EDT 01/11/2016 9:10 AM EDT Narrative Resulting Agency Comment Spec In Lab Que Amaro MD CHEMISTRY ORDBhargav JENNINGS Performing Organization Address [facility] Co de Phone Number [facility] [place] [address] * Tacrolimus level (01/11/2016 9:04 AM EDT) Tacrolimus 9.7 ng/mL [facility] Comment:Trough therapeutic: 5-15 ng/mL Blood specimen (specimen) 01/11/2016 9:04 AM EDT 01/11/2016 10:45 AM EDT Narrative Resulting Agency Comment Spec In Lab Que Amaro MD CHEMISTRY ORDBhargav JENNINGS Performing Organization Address City/[facility]/ZIP Co de Phone Number [facility] [place] [address] * (ABNORMAL) Reticulocyte Count (01/11/2016 9:04 AM [...] MD HEMATOLOGY ORD ERABLES Performing Organization Address City/[facility]/ZIP Co de Phone Number [facility] [place] [address] * Cholesterol, total (01/11/2016 9:04 AM EDT) [...] MD CHEMISTRY ORDE DICK Performing Organization Address [facility] Co de Phone Number [facility] [place] [address] documented in this encounter Visit Diagnoses Diagnosis Kidney replaced by transplant documented in this encounter Care Teams Shot Packer Relationship Specialty Start Date End Date Urbano Denis DO [address] [place] [address] PCP - General 09/03/12 03/17/22 Ruchi Valles RN Nurse Clinic Transplant Surgery 07/30/15 documented as of this encounter
--- OUTSIDE RECORDS SUMMARY | 2024-05-16 17:35 | XMS_ITS | Encounter Summary ---
[place] [address] Care Team Providers Care Veterinary Physiologist Name Role Phone Urbano Denis DO Primary Care Provider Reason for Visit * Auth/Cert Specialty Diagnoses / Procedures Referred By Humberto t Referred To Contact Diagnoses RAY (acute kidney injury) RAY - RO REJECTION / SP RENAL TRANSPLANT Referral ID Status Reason Start Date Expiration Date Visits Re quested Visits Authorized [id number] 1 1 Encounter Details Date Type Department Care Team (Latest Contact Info) Description 12/28/2015 12:57 PM EDT - 12/28/2015 11:59 PM EDT Hospital Encounter [place] [address] Kidney replaced by transplant; RAY (acute kidney [...] EST TH Visit (TeleHealth) Cardiology at [address] [address] Byron Brown MD [facility] [place] [address] 07/14/2024 10:00 AM EST Hospital Encounter Non-[place] [address] Arrived documented as of [...] 03:32 pm) PATIENT INFO: ID #: ? [id number] ? : [birth year] (65 yrs) Name: ? ETHEL Gomez YUAN ? Visit Date:12/28/2015 03:01 pm PERFORMED BY: Performed By: ? Kristin Fletcher RDMS Attending: ?Alec GERBER, Guy Vargas Referred By: ?MADHU EAGLE MD SERVICE(S) PROVIDED: ??URTPL - Ultrasound Renal Transplant - Left - [id number] INDICATIONS: ??acute rise in creat. rule out [...] Final 12/28/2015 03:32pm) PATIENT INFO: ID #: [id number] : [birth year] (65 yrs) Name: ETHEL MERIDARAMÓN Visit Date:12/28/2015 03:01 pm PERFORMED BY: Performed By: Kristin Fletcher RDMS Attending: Guy Michael MD Referred By: MADHU EAGLE MD SERVICE(S) PROVIDED: URTPL - Ultrasound Renal Transplant - Left - [id number] INDICATIONS: acute rise in creat. rule out [...] immunotherapy documented in this encounter Care Teams Veterinary Physiologist Relationship Specialty Start Date End Date Urbano Denis DO [address] [place] [address] PCP - General 09/03/12 03/17/22 Ruchi Valles RN Nurse Clinic Transplant Surgery 07/30/15 documented as of this encounter
--- OUTSIDE RECORDS SUMMARY | 2024-05-16 17:35 | XMS_ITS | Encounter Summary ---
Author Organization [facility] [place] [address] Care Team Providers Care Pharmacy Helper Name Role Phone [place] Denis DO Primary Care Provider Encounter Details Date Type Department Care Team (Late st Contact Info) Description 12/29/2015 [place] [address] Nicholas Sim MD [facility] [place] [address] Social History Tobacco Use Types Packs/Day Years [...] performed by Franko Larkin MD at [facility] [place] ??? Pro transplant, prep cadaver renal graft N/A 09/16/2015 @PREPARATION CADAVERIC RENAL ALLOGRAFT performed by Franko Larkin MD at [facility] [place] ??? N/A 09/16/2015 ORGAN ACQUISITION RENAL, CADAVERIC performed by Franko Larkin MD at [facility] [place] Medications: Current Facility-Administered Medications on File [...] EST TH Visit (TeleHealth) Cardiology at [address] [id number] Byron Brown MD [facility] [place] [address] 07/14/2024 10:00 AM EST Hospital Encounter Non[place] [phone] Arrived documented as of this encounter Visit Diagnoses Not on filedocumented in this encounter Care Teams Pharmacy Helper Relationship Specialty Start Date End Date Albania Denis DO [address] [place] [address] [address] [facility] [address] [place] [address] PCP - General 09/03/12 03/17/22 Ruchi Valles RN Nurse Clinic Transplant Surgery 07/30/15 documented as of this encounter
--- OUTSIDE RECORDS SUMMARY | 2024-05-16 17:35 | XMS_ITS | Encounter Summary ---
[place] [address] Care Team Providers Care Liquor Merchant Name Role Phone [place]ia Denis DO Primary Care Provider [phone] Reason for Referral * Surgical (Routine) - Specialty Diagnoses / Procedures Referred By Humberto flor Referred To Contact Radiology Diagnoses Kidney transplant infection Francisco Valencia MD [facility] [place] [address] [place] [address] Referral ID Status Reason Start Date Expiration Date Visits Requested Visits Authorized [id number] Specialty Service Requested 01/02/2016 01/01/2017 1 1 Reason for Visit * Auth/Cert Specialty Diagnoses / Procedures Referred By Humberto flor Referred To Contact Diagnoses RAY (acute kidney injury) RAY - RO REJECTION / SP RENAL TRANSPLANT Referral ID Status Reason Start Date Expiration Date Visits Re quested Visits Authorized [id number] 1 1 Encounter Details Date Type Department Care Team (Late st Contact Info) Description 12/28/2015 11:19 AM EDT - 01/03/2016 10:40 AM EDT Hospital Encounter [address] [place] [address] aTl Eagle MD [facility] [place] [address] Que Amaro MD [facility] [place] [address] Kidney transplant infection Discharge Disposition: Home Social [...] Ethel Akins Patient Age: 65 y.o. Language: Polish Race: White Ethnicity: Not nor Admit date: [...] Inpatient Provider Contact Information: Que Amaro MD [facility] Transplant [phone] Discharge Diagnoses (Hospital Problems) and Secondary Diagnoses [...] was consulted and placed transplant kidney 8 Slovak nephrostomy tube. Urology was consulted and recommended anterior nephrostogram in IR, which was performed on HD #5. 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 With this, he began to [...] is requested. ?? Technique: Review of the [facility] US exam shows mild hydronephrosis; no perinephric [...] patient was prepped anddraped in supine position. Demand Manager image obtained. Through the existing left pelvic [...] Multidisciplinary Team Recommendations: -NUTRITION TEAM: The transplant hand silvering supervisor has reviewed your dietary limitations (fluid and food)and has provided you with standard post-op instructions. The hand silvering supervisor recommendations were as follows: Regular diet, but [...] to have your blood drawn. General Instructions [facility] Vascular and Interventional Radiology Discharge Instructions [...] is during regular office hours, please call [phone]. If it is after regular office hours, or on weekends or holidays, please call [phone] and ask to speak to the [employer] vice president mission integration for Interventional Radiology. You have received medication [...] 01/03/2016 10:00 AM LAB, THREE L [facility] Lab 01/03/2016 11:00 AM Tulio Marcelo MD Gastroenterology [phone] 01/03/2016 3:30 PM Byron Brown MD Cardiology [phone] 09/15/2016 9:00 AM LAB, THREE L [facility] Lab 09/15/2016 10:00 AM Tal Eagle MD Transplant [phone] Future Orders Complete By Expires Basic Metabolic Panel (non-fasting) [LAB15 Custom] 01/04/2016 01/02/2017 Process Instructions: INCLUDES: Calcium, BUN, Creat, GFR, Glucose, Lytes Scheduling Instructions: Comments: Questions: Magnesium [[id number] Custom] 01/04/2016 01/02/2017 Process Instructions: Scheduling Instructions: Comments: Questions: Phosphorus [[id number] Custom] 01/04/2016 01/02/2017 Process Instructions: Scheduling Instructions: [...] Yes Content of discussion: Referral to Urology [[id number] Custom] As directed Process Instructions: If no [...] the transplant clinic: Solid Organ Transplant Department [facility], [address] [address] Future Appointments Date Time Provider Department Center 01/03/2016 10:00 AM LAB[facility] 01/03/2016 11:00 AM Tulio Marcelo MD [facility] 01/03/2016 3:30 PM Byron Brown MD [facility] 09/15/2016 9:00 AM LAB, [facility] L [facility] 09/15/2016 10:00 AM Tal Eagle MD [...] the message. You can also reach the fitness coordinator after hours by calling (ask for the fitness coordinator on-call). Discharge References/Attachments None documented in this encounter Discharge Instructions * Discharge Instructions* Zehra Tyson RN - 12/29/2015 3:51 PM EDT [facility] Vascular and Interventional Radiology Discharge Instructions [...] is during regular office hours, please call [phone]. If it is after regular office hours, or on weekends or holidays, please call [phone] and ask to speak to the [employer] vice president mission integration for Interventional Radiology. You have received medication [...] 5064 Office of Care Management (OCM) / Child Development Professor(CM)/ Initial Assessment Discussed patient with Provider Team [...] Lives with spouse Mara who was primary home health aide caregiver post kidney [id number] weeks ago. ?? ADVANCE DIRECTIVES: None on file. Full Code. ? HEALTH /PRESCRIPTION COVERAGE: Active Insurance as of 11/12/2015 ? Primary Coverage ? Payor?? Plan?? Insurance Group?? Employer/Plan Group? MEDICARE?? MEDICARE PART A & B? Payor Plan Address?? Payor Plan Phone Number?? Effective From?? Effective To? [address]?? [phone]?? 08/06/2013? [place] [address]? Subscriber Name?? Subscriber Date?? Member ID? ETHEL AKINS?? 1950?? [id number]? Secondary Coverage ? Payor?? Plan?? Insurance Group?? Employer/Plan Group? BLUE CROSS BLUE SHIELD OOS?? BCBS NATIONAL OOS PPO?? [id number]? Payor Plan Address?? Payor Plan Phone Number?? Effective From?? Effective To? [address]?? [phone]?? 11/03/2013? [place] [address]? Subscriber Name?? Subscriber Date?? Member ID? ETHEL AKINS?? 1950?? [id number]? Visit Level Coverage Information ? Payor?? Plan?? Plan Phone?? Plan Street?? Plan City?? Plan State?? Plan Zip? MEDICARE?? MEDICARE PART A & B?? [phone]?? [address] [place] [address]?? [place] [21]?? [address]? CURRENT HOME/COMMUNITY SERVICES/EQUIPMENT: DME:[facility] - Not happy with 2/2 co-pay issues and delivery of supplies not used. Home Health Agency: [facility] - Not happy with 2/2 SN came 3 times and never came back or explained why services were no longer needed. Other: [facility] Transplant Organ Clinic ?? SECTION BEAMER REFERRAL: Not needed at this time. ? PRIMARY CARE PHYSICIAN: ALBANIA DENIS, DO [address] / [facility] [address] ?? POTENTIAL DISCHARGE NEEDS: Unknown at this time.?? ANTICIPATED BARRIERS TO DISCHARGE: None ?? TRANSPORTATION @ D/C: Mara via car ?? PLAN: CM will continue to monitor progress, follow for continuity of care and assist with dischargeplanning while hospitalized ?? * Andrade Mendez RN - 12/31/2015 2:56 PM EDT [facility] Name: ETHEL AKINS Date of : 1950 AGE 65 y.o. [address]: [address] [place] [id number] (home) [phone] (work) Mobile: Telephone Information: Referring Provider: No [...] EXTREMITY performed by Que Amaro MD at [facility] OR ??? Pro transplantation of kidney N/A 09/16/2015 @KIDNEY TRANSPLANT, WITHOUT RECIPIENT NEPHRECTOMY performed by Franko Larkin MD at [facility] OR ??? Pro transplant, prep cadaver renal graft N/A 09/16/2015 @PREPARATION CADAVERIC RENAL ALLOGRAFT performed by Franko Larkin MD at [facility] OR ??? N/A 09/16/2015 ORGAN ACQUISITION RENAL, CADAVERIC performed by Franko Larkin MD at [facility] OR Date/Procedure? Med's given/comments 01/08/2015: Tunneled [...] re-starting after procedure today 5) Spoke to animal caregiver for possible VNA at discharge. 6) Prograf [...] 12/28/2016 Francisco Valencia MD Associated attestation - uQe Amaro MD - 01/02/2016 8:36 AM EDT [...] Pain control with Tylenol IV and Dilaudid CROSSING GUARD CV: No acute issues, continue Plavix 75, [...] of : 1950 AGE 65 y.o. Address: [address] [place] [phone] (home) [phone] (work) Mobile: Telephone Information: Referring Provider: No [...] EXTREMITY performed by Que Amaro MD at [facility] OR ??? Pro transplantation of kidney N/A 09/16/2015 @KIDNEY TRANSPLANT, WITHOUT RECIPIENT NEPHRECTOMY performed by Franko Larkin MD at [facility] OR ??? Pro transplant, prep cadaver renal graft N/A 09/16/2015 @PREPARATION CADAVERIC RENAL ALLOGRAFT performed by Franko Larkin MD at [facility] OR ??? N/A 09/16/2015 ORGAN ACQUISITION RENAL, CADAVERIC performed by Franko Larkin MD at [facility] OR Date/Procedure? Med's given/comments 01/08/2015: Tunneled [...] informed this patient that they require a driver/guide to be present and in the building to drive them home after this procedure. In the absence of a driver/guide, IR will not be able to perform [...] Pain control with Tylenol IV and Dilaudid CROSSING GUARD CV: No acute issues, continue Plavix 75, [...] Bell RD - 12/28/2015 4:04 PM EDT [facility] Post Transplant Nutrition Follow Up Date: 12/28/2015 Patient: Ethel Akins Transplant Date: 09/16/15 [place] organ UNOS diagnosis: Transplant: Mr. Ethel Akins [...] Value Date CHLPL 172 12/28/2015 Assessment: This credit underwriter reviewed patient's blood chemistries at clinic visit; patient admitted. This credit underwriter suggests Renal, JAMESON diet rx since serum K+ and Phos also elevated, suggesting acute rejection. Possiblecauses are to be evaluated. Plan: Renal, JAMESON diet. Follow up with patient on Thursday with nutrition intervention prn. documented in this encounter H&P Notes * Tal Eagle MD - 12/28/2015 1:05 PM EDT [facility] Department of Transplant Surgery Inpatient Admission [...] EXTREMITY performed by Que Amaro MD at [facility] OR ??? Pro transplantation of kidney N/A 09/16/2015 @KIDNEY TRANSPLANT, WITHOUT RECIPIENT NEPHRECTOMY performed by Franko Larkin MD at [facility] OR ??? Pro transplant, prep cadaver renal graft N/A 09/16/2015 @PREPARATION CADAVERIC RENAL ALLOGRAFT performed by Franko Larkin MD at [facility] OR ??? N/A 09/16/2015 ORGAN ACQUISITION RENAL, CADAVERIC performed by Franko Larkin MD at [facility] OR ALL: No Known Allergies MED: No [...] Negative mcL Appearance UA Clear Clear Spec [place] UA 1.009 1.002 - 1.030 Color UA [...] care? -- * Plan of Care - aMlina Edmonds RN - 01/01/2016 4:10 AM EDT [...] NPO this AM for IR procedure, IR MISSION WORKER up to tell pt that this procedure [...] performed by Que Amaro MD at [facility] MA[facility] OR ??? Pro transplantation of kidney N/A 09/16/2015 @KIDNEY TRANSPLANT, WITHOUT RECIPIENT NEPHRECTOMY performed by Franko Larkin MD at [facility] OR ??? Pro transplant, prep cadaver renal graft N/A 09/16/2015 @PREPARATION CADAVERIC RENAL ALLOGRAFT performed by Franko Larkin MD at [facility] OR ??? N/A 09/16/2015 ORGAN ACQUISITION RENAL, CADAVERIC performed by Franko Larkin MD at [facility] MAIN OR Social History: Social History [...] Outcome: Ongoing (Interventions Implemented as Appropriate) 12/30/15 0458 Plan of Care Review Plan of Care [...] EST TH Visit (TeleHealth) Cardiology at [address] [address] Byron Brown MD [facility] [place] [address] 07/14/2024 10:00 AM EST Hospital Encounter Non-Invasive Cardiology Lab [facility] [place] [phone] Arrived Scheduled Orders Name Type Priority Associated [...] 7:49 AM EDT) Neutrophil % 73.9 % [facility] Neutrophil Absolute 3.45 1.50 - 6.30 x10(3)/[facility] Lymph % 19.9 % [facility] Lymphocytes Abs 0.9(L) 1.0 - 3.6 x10(3)/[facility] Monocyte % 1.7 % [facility] Monocyte Abs 0.1(L) 0.2 - 1.0 x10(3)/[facility] Eos % 3.0 % [facility] Eosinophils Abs 0.1 0.0 - 0.5 x10(3)/[facility] Basophil % 1.3 % [facility] Baso Absolute 0.1 0.0 - 0.2 x10(3)/[facility]OR[facility] Immature Gran % 0.20 % [facility] Comment: Immature granulocytes(IG's)percentage and absolute count will include metamyelocytes, myelocytes, and promyelocytes. Blood smears from CBCs yielding IG's will be scanned manually for concordance. If this scan disagrees with the automated IG or if promyelocytes are noted, a manual differential will be performed. Immature Gran Absolute 0.01 0.00 - 0.05 x10(3)/[facility] Blood specimen (specimen) 01/03/2016 7:49 AM EDT 01/03/2016 8:40 AM EDT Narrative Resulting Agency Comment Spec In Lab Tal Eagle MD HEMATOLOGY ORDERA BLES [facility] [place] [address] * (ABNORMAL) Hemogram (01/03/2016 7:49 AM EDT) [facility] White Blood Cell 4.7 4.0 - 10.0 x10(3)/[facility] LAB[facility] Red Blood Cell 4.31(L) 4.63 - 6.08 x10(6)/mc L [facility] Hemoglobin 13.7 13.7 - 17.5 gm/dL [facility] Hematocrit 39.7(L) 40.0 - 51.0 % [facility] Mean Cell Volume 92.1(H) 79.0 - 92.0 fL [facility] Mean Cell Hemoglobin 31.8 25.6 - 32.2 pg [facility] Mean Cell Hemoglobin Concentration 34.5 32.0 - 36.5 gm/dL [facility] Platelet 202 145 - 370 x10(3)/mc L [facility] RDW Standard Deviation 46.1(H) 35.0 - 46.0 fL [facility] RDW coefficient of variation 13.8 10.9 - 14.4 % [facility] Mean Platelet Volume 9.5 9.0 - 12.0 fL [facility] Blood specimen (specimen) 01/03/2016 7:49 AM EDT 01/03/2016 8:40 AM EDT Narrative Resulting Agency Comment Spec In Lab Tal Eagle MD HEMATOLOGY ORDERA BLES Performing Organization Address [facility] Co de Phone Number [facility] [place] [address] * (ABNORMAL) Phosphorus (01/03/2016 7:49 AM EDT) Phosphorus 2.1(L) 2.5 - 4.5 mg/dL [facility] Blood specimen (specimen) 01/03/2016 7:49 AM EDT 01/03/2016 8:40 AM EDT Narrative Resulting Agency Comment Spec In Lab Tal Eagle MD CHEMISTRY ORDERAB LES Performing Organization Address [facility] Co de Phone Number [facility] [place] [address] * (ABNORMAL) Basic Metabolic Panel (non-fasting) (01/03/2016 7:49 AM EDT) Glucose 176 65 - 199 mg/dL [facility] Comment:Diabetes: >=200 mg/d L plus symptoms Blood Urea Nitrogen 27(H) 10 - 20 mg/dL [facility] Creatinine 2.84(H) 0.80 - 1.50 mg/dL [facility] Comment: Please note that the pediatric reference intervals supplied above were not validated at [facility]. Results from pediatric patients should be interpreted [...] questions. Chloride 103 98 - 107 mmol/L [facility] Carbon Dioxide 22 22 - 31 mmol/L [facility] Anion Gap 16(H) 5 - 15 mmol/L [facility] Calcium 9.2 8.5 - 10.5 mg/dL [facility] Est Glomerular Filtration Rate 22(L) [...] the following links into your internet browser. [email or web address] Blood specimen (specimen) 01/03/2016 7:49 AM EDT 01/03/2016 8:40 AM EDT Narrative Resulting Agency Comment Spec In Lab Tal Eagle MD CHEMISTRY ORDERAB LES Performing Organization Address City/[facility]/ZIP Co de Phone Number [facility] [place] [address] * (ABNORMAL) Magnesium (01/03/2016 7:49 AM EDT) Magnesium 0.68(L) 0.69 - 1.07 mmol/L [facility] Blood specimen (specimen) 01/03/2016 7:49 AM EDT 01/03/2016 8:40 AM EDT Narrative Resulting Agency Comment Spec In Lab Tal Eagle MD CHEMISTRY ORDERAB LES Performing Organization Address [facility] Co de Phone Number [facility] [place] [address] * HCV Genotype (01/02/2016 3:59 PM EDT) [...] of HCV genotype was carried out using WoowUp-8 detection system. Method: Plasma was initially subjected to quantitative RT-PCR using the Kirsten NIK Ampliprep/NIK Taqman HCV assay. The HCV genotyping was carried out using Sitrion XT-8 detection system that targets 5? -untranslated region of the HCV genome. The amplicon from the Kirsten assay served as a template for the nested PCR followed by a direct analysis on the [employer] XT-8 detection system for the identification of HCV genotypes. The genotypes/subtypes detected by this method include 1a, 1b, 2a/c, 2b, 3, 4, 5 and 6a/b. This test was validated and its performance characteristics determined by the Molecular Pathology Laboratory at [facility] [...] 5, and 6. Clin Gastroenterol Hepatol. 2005; 3:A97-Z792. Kristofer JS, Palomo E, Sole D, Elder AJ, Richy ME. Current and emerging antiviral treatments for hepatitis C infection. Br J Clin Pharmacol. 2012 Feb 13. [Epub ahead of print] [facility] Comment: [VERIFIED DATE]01.15.16 Verified By:Nella Evans (Electronic Signature) Blood specimen (specimen) 01/02/2016 3:59 PM EDT 01/08/2016 8:06 AM EDT Narrative Resulting Agency Comment Spec In Lab Que Amaro MD HEMATOLOGY ORD ERABLES [facility] [place] [address] * Hepatitis C RNA, quantitative, PCR (01/02/2016 3:59 PM EDT) HCV Viral Load 604,635 IU/mL [facility] HCV Viral Load Result: [id number] IU/mL Indication for Study: Hepatitis C Infection Analysis: A quantitiative real time reverse transcriptase PCR assay was performed on extracted viral RNA for the purpose of quantification. Sample: plasma (1 mL minimum volume) Method: Kirsten Nik TaqMAN 48 HCV Linear Range: 15 IU/mL - 100,000,000IU/mL (95% CI) Note: This assay is being performed in the [facility] Molecular Pathology Laboratory. Gibson Good, Ph.D. Director, Molecular Pathology [facility] Comment: [VERIFIED DATE]01.09.16 Verified By:Fatemeh Garcia (Electronic Signature) Blood specimen (specimen) 01/02/2016 3:59 PM EDT 01/08/2016 8:06 AM EDT Narrative Resulting Agency Comment Spec In Lab Que Amaro MD MOLECULAR ROCHELLE JENNINGS Performing Organization Address [facility] de Phone Number [facility] [place] [address] * Prothrombin Time (01/02/2016 3:59 PM EDT) Pathologist [facility] Prothrombin Time 13.6 12.0 - 15.0 sec [facility] Comment: An INR <2.0 indicates [...] International Normalization Ratio 1.0 0.9 - 1.1 [facility] Blood specimen (specimen) 01/02/2016 3:59 PM EDT 01/02/2016 4:20 PM EDT Narrative Resulting Agency Comment Spec In Lab Que Amaro MD HEMATOLOGY ORD ERABLES Performing Organization Address [facility] Co de Phone Number [facility] [place] [address] * (ABNORMAL) Differential, Automated (01/02/2016 8:10 AM EDT) Pathologist [facility] Neutrophil % 72.5 % [facility] Neutrophil Absolute 4.09 1.50 - 6.30 x10(3)/mc L [facility] Lymph % 21.6 % [facility] Lymphocytes Abs 1.2 1.0 - 3.6 x10(3)/mc L [facility] Monocyte % 1.4 % [facility] Monocyte Abs 0.1(L) 0.2 - 1.0 x10(3)/[facility] Eos % 3.4 % [facility] Eosinophils Abs 0.2 0.0 - 0.5 x10(3)/ L [facility] Basophil % 0.9 % [facility] Baso Absolute 0.0 0.0 - 0.2 x10(3)/[facility] Immature Gran % 0.20 % [facility] Comment: Immature granulocytes(IG's)percentage and absolute count will include metamyelocytes, myelocytes, and promyelocytes. Blood smears from CBCs yielding IG's will be scanned manually for concordance. If this scan disagrees with the automated IG or if promyelocytes are noted, a manual differential will be performed. Immature Gran Absolute 0.01 0.00 - 0.05 x10(3)/[facility] Blood specimen (specimen) 01/02/2016 8:10 AM EDT 01/02/2016 8:16 AM EDT Narrative Resulting Agency Comment Spec In Lab Tal Eagle MD HEMATOLOGY ORDERA BLES [facility] [place] [address] * (ABNORMAL) Hemogram (01/02/2016 8:10 AM EDT) White Blood Cell 5.6 4.0 - 10.0 x10(3)/ L [facility] Red Blood Cell 4.44(L) 4.63 - 6.08 x10(6)/ L [facility] Hemoglobin 13.9 13.7 - 17.5 gm/dL [facility] Hematocrit 40.1 40.0 - 51.0 % [facility] Mean Cell Volume 90.3 79.0 - 92.0 fL [facility] Mean Cell Hemoglobin 31.3 25.6 - 32.2 pg [facility] Mean Cell Hemoglobin Concentration 34.7 32.0 - 36.5 gm/dL [facility] Platelet 230 145 - 370 x10(3)/mc L [facility] RDW Standard Deviation 45.1 35.0 - 46.0 fL [facility] RDW coefficient of variation 13.7 10.9 - 14.4 % [facility] Mean Platelet Volume 9.2 9.0 - 12.0 fL [facility] Blood specimen (specimen) 01/02/2016 8:10 AM EDT 01/02/2016 8:16 AM EDT Narrative Resulting Agency Comment Spec In Lab Tal Eagle MD HEMATOLOGY ORDERA BLES Performing Organization Address [facility] Co de Phone Number [facility] [place] [address] * Phosphorus (01/02/2016 8:10 AM EDT) Phosphorus 2.8 2.5 - 4.5 mg/dL [facility] Blood specimen (specimen) 01/02/2016 8:10 AM EDT 01/02/2016 8:16 AM EDT Narrative Resulting Agency Comment Spec In Lab Tal Eagle MD CHEMISTRY ORDERAB LES Performing Organization Address [facility] Co de Phone Number [facility] [place] [address] * (ABNORMAL) Basic Metabolic Panel (non-fasting) (01/02/2016 8:10 AM EDT) Glucose 141 65 - 199 mg/dL [facility] Comment:Diabetes: >=200 mg/d L plus symptoms Blood Urea Nitrogen 33(H) 10 - 20 mg/dL [facility] Creatinine 3.36(H) 0.80 - 1.50 mg/dL [facility] Comment: Please note that the pediatric reference intervals supplied above were not validated at [facility]. Results from pediatric patients should be interpreted in conjunction to the patient's age, height and muscle mass. Sodium 136 135 - 145 mmol/L [facility] questions. Chloride 99 98 - 107 mmol/L [facility] Carbon Dioxide 21(L) 22 - 31 mmol/L [facility] Anion Gap 16(H) 5 - 15 mmol/L [facility] Calcium 9.6 8.5 - 10.5 mg/dL [facility] Est Glomerular Filtration Rate 18(L) [...] the following links into your internet browser. [email or web address] Blood specimen (specimen) 01/02/2016 8:10 AM EDT 01/02/2016 8:16 AM EDT Narrative Resulting Agency Comment Spec In Lab Tal Eagle MD CHEMISTRY ORDERAB LES [facility] [place] [address] * Magnesium (01/02/2016 8:10 AM EDT) Magnesium 0.70 0.69 - 1.07 mmol/L [facility] Blood specimen (specimen) 01/02/2016 8:10 AM EDT 01/02/2016 8:16 AM EDT Narrative Resulting Agency Comment Spec In Lab Tal Eagle MD CHEMISTRY ORDERAB LES Performing Organization Address City/[facility]/ZIP Co de Phone Number [facility] [place] [address] * Tacrolimus level (01/02/2016 8:10 AM EDT) Tacrolimus 9.1 ng/mL [facility] Comment:Trough therapeutic: 5-15 ng/mL Blood specimen (specimen) 01/02/2016 8:10 AM EDT 01/02/2016 11:39 AM EDT Narrative Resulting Agency Comment Spec In Lab Que Amaro MD CHEMISTRY ORDE RABLES Performing Organization Address [facility] Co de Phone Number [facility] [place] [address] * IR all procedures (01/01/2016 5:01 PM [...] was prepped and draped in supine position. [employer] image obtained. Through the existing left pelvic [...] 6:22 AM EDT) Neutrophil % 69.0 % [facility] Neutrophil Absolute 3.89 1.50 - 6.30 x10(3)/mc L [facility] Lymph % 23.4 % [facility] Lymphocytes Abs 1.3 1.0 - 3.6 x10(3)/mc L [facility] Monocyte % 1.4 % [facility] Monocyte Abs 0.1(L) 0.2 - 1.0 x10(3)/mc L [facility] Eos % 4.8 % [facility] Eosinophils Abs 0.3 0.0 - 0.5 x10(3)/mc L [facility] Basophil % 1.2 % [facility] Baso Absolute 0.1 0.0 - 0.2 x10(3)/mc L [facility] Immature Gran % 0.20 % [facility] Comment: Immature granulocytes(IG's)percentage and absolute count will include metamyelocytes, myelocytes, and promyelocytes. Blood smears from CBCs yielding IG's will be scanned manually for concordance. If this scan disagrees with the automated IG or if promyelocytes are noted, a manual differential will be performed. Immature Gran Absolute 0.01 0.00 - 0.05 x10(3)/mc L [facility] Blood specimen (specimen) 01/01/2016 6:22 AM EDT 01/01/2016 6:31 AM EDT Narrative Resulting Agency Comment Spec In Lab Tal Eagle MD HEMATOLOGY ORDERA BLES [facility] [place] [address] * (ABNORMAL) Hemogram (01/01/2016 6:22 AM EDT) White Blood Cell 5.6 4.0 - 10.0 x10(3)/ L [facility] Red Blood Cell 4.32(L) 4.63 - 6.08 x10(6)/mc L [facility] Hemoglobin 13.4(L) 13.7 - 17.5 gm/dL [facility] Hematocrit 38.7(L) 40.0 - 51.0 % [facility] Mean Cell Volume 89.6 79.0 - 92.0 fL [facility] Mean Cell Hemoglobin 31.0 25.6 - 32.2 pg [facility] Mean Cell Hemoglobin Concentration 34.6 32.0 - 36.5 gm/dL [facility] Platelet 243 145 - 370 x10(3)/mc L [facility] RDW Standard Deviation 45.1 35.0 - 46.0 fL [facility] RDW coefficient of variation 13.6 10.9 - 14.4 % [facility] Mean Platelet Volume 8.8(L) 9.0 - 12.0 fL [facility] Blood specimen (specimen) 01/01/2016 6:22 AM EDT 01/01/2016 6:31 AM EDT Narrative Resulting Agency Comment Spec In Lab Tal Eagle MD HEMATOLOGY ORDERA BLES Performing Organization Address [facility]/ZIP Co de Phone Number [facility] [place] [address] * Phosphorus (01/01/2016 6:22 AM EDT) Phosphorus 3.5 2.5 - 4.5 mg/dL [facility] Blood specimen (specimen) 01/01/2016 6:22 AM EDT 01/01/2016 6:31 AM EDT Narrative Resulting Agency Comment Spec In Lab Tal Eagle MD CHEMISTRY ORDERAB LES Performing Organization Address [facility] Co de Phone Number [facility] [place] [address] * (ABNORMAL) Basic Metabolic Panel (non-fasting) (01/01/2016 6:22 AM EDT) Glucose 119 65 - 199 mg/dL [facility] Comment:Diabetes: >=200 mg/d L plus symptoms Blood Urea Nitrogen 35(H) 10 - 20 mg/dL [facility] Creatinine 3.64(H) 0.80 - 1.50 mg/dL [facility] Comment: Please note that the pediatric reference intervals supplied above were not validated at [facility]. Results from pediatric patients should be interpreted in conjunction to the patient's age, height and muscle mass. Sodium 138 135 - 145 mmol/L [facility] Potassium 3.9 3.5 - 5.0 mmol/L [facility] Comment: Please note: ??Patients with WBC >100,000 may have falsely elevated Potassium levels. ??For accurate Potassium quantification in these patients send serum separator tube ([facility] top) for subsequent determinations. ??Contact the Clinical Chemistry Laboratory if there are any questions. Chloride 101 98 - 107 mmol/L [facility] Carbon Dioxide 22 22 - 31 mmol/L [facility] Anion Gap 15 5 - 15 mmol/L [facility] Calcium 9.1 8.5 - 10.5 mg/dL [facility] Est Glomerular Filtration Rate 17(L) [...] the following links into your internet browser. [email or web address] Blood specimen (specimen) 01/01/2016 6:22 AM EDT 01/01/2016 6:31 AM EDT Narrative Resulting Agency Comment Spec In Lab Tal Eagle MD CHEMISTRY ORDERAB LES Performing Organization Address City/[facility] Co de Phone Number [facility] [place] [address] * Magnesium (01/01/2016 6:22 AM EDT) Magnesium 0.74 0.69 - 1.07 mmol/L [facility] Blood specimen (specimen) 01/01/2016 6:22 AM EDT 01/01/2016 6:31 AM EDT Narrative Resulting Agency Comment Spec In Lab Tal Eagle MD CHEMISTRY ORDERAB LES Performing Organization Address City/[facility]/ZIP Co de Phone Number [facility] [place] [address] * Tacrolimus level (12/31/2015 8:00 AM EDT) Tacrolimus 6.5 ng/mL [facility] Comment:Trough therapeutic: 5-15 ng/mL Blood specimen (specimen) 12/31/2015 8:00 AM EDT 12/31/2015 11:45 AM EDT Narrative Resulting Agency Comment Spec In Lab Tal Eagle MD CHEMISTRY ORDERAB LES Performing Organization Address City/State/[facility] Co de Phone Number [facility] [place] [address] * (ABNORMAL) Differential, Automated (12/31/2015 7:59 AM EDT) Pathologist [facility] Neutrophil % 76.3 % [facility] Neutrophil Absolute 4.99 1.50 - 6.30 x10(3)/ L [facility] Lymph % 17.1 % [facility] Lymphocytes Abs 1.1 1.0 - 3.6 x10(3)/ L [facility] Monocyte % 2.0 % [facility] Monocyte Abs 0.1(L) 0.2 - 1.0 x10(3)/ L [facility] Eos % 3.2 % [facility] Eosinophils Abs 0.2 0.0 - 0.5 x10(3)/[facility] Basophil % 1.2 % [facility] Baso Absolute 0.1 0.0 - 0.2 x10(3)/ L [facility] Immature Gran % 0.20 % [facility] Comment: Immature granulocytes(IG's)percentage and absolute count will include metamyelocytes, myelocytes, and promyelocytes. Blood smears from CBCs yielding IG's will be scanned manually for concordance. If this scan disagrees with the automated IG or if promyelocytes are noted, a manual differential will be performed. Immature Gran Absolute 0.01 0.00 - 0.05 x10(3)/mc L [facility] Blood specimen (specimen) 12/31/2015 7:59 AM EDT 12/31/2015 8:10 AM EDT Narrative Resulting Agency Comment Spec In Lab Tal Eagle MD HEMATOLOGY ORDERA BLES Performing Organization Address City/[facility]/ZIP Co de Phone Number [facility] [place] [address] * (ABNORMAL) Hemogram (12/31/2015 7:59 AM EDT) White Blood Cell 6.5 4.0 - 10.0 x10(3)/mc L [facility] Red Blood Cell 4.51(L) 4.63 - 6.08 x10(6)/mc L [facility] Hemoglobin 14.2 13.7 - 17.5 gm/dL [facility] Hematocrit 40.8 40.0 - 51.0 % [facility] Mean Cell Volume 90.5 79.0 - 92.0 fL [facility] Mean Cell Hemoglobin 31.5 25.6 - 32.2 pg [facility] Mean Cell Hemoglobin Concentration 34.8 32.0 - 36.5 gm/dL [facility] Platelet 273 145 - 370 x10(3)/mc L [facility] RDW Standard Deviation 46.1(H) 35.0 - 46.0 fL [facility] RDW coefficient of variation 14.0 10.9 - 14.4 % [facility] Mean Platelet Volume 9.1 9.0 - 12.0 fL [facility] Blood specimen (specimen) 12/31/2015 7:59 AM EDT 12/31/2015 8:10 AM EDT Narrative Resulting Agency Comment Spec In Lab Tal Eagle MD HEMATOLOGY ORDERA BLES Performing Organization Address [facility] Co de Phone Number [facility] [place] [address] * Phosphorus (12/31/2015 7:59 AM EDT) Phosphorus 3.4 2.5 - 4.5 mg/dL [facility] Blood specimen (specimen) 12/31/2015 7:59 AM EDT 12/31/2015 8:10 AM EDT Narrative Resulting Agency Comment Spec In Lab Tal Eagle MD CHEMISTRY ORDERAB LES [facility] [place] [address] * (ABNORMAL) Basic Metabolic Panel (non-fasting) (12/31/2015 7:59 AM EDT) Glucose 126 65 - 199 mg/dL [facility] Comment:Diabetes: >=200 mg/d L plus symptoms Blood Urea Nitrogen 39(H) 10 - 20 mg/dL [facility] Creatinine 4.36(H) 0.80 - 1.50 mg/dL [facility] Comment: result [id number] Please note that the pediatric reference intervals supplied above were not validated at [facility]. Results from pediatric patients should be interpreted in conjunction to the patient's age, height and muscle mass. Sodium 139 135 - 145 mmol/L [facility] Potassium 4.3 3.5 - 5.0 mmol/L [facility] Comment: Please note: ??Patients with WBC >100,000 may have falsely elevated Potassium levels. ??For accurate Potassium quantification in these patients send serum separator tube (gold top) for subsequent determinations. ??Contact the Clinical Chemistry Laboratory if there are any questions. Chloride 102 98 - 107 mmol/L [facility] Carbon Dioxide 21(L) 22 - 31 mmol/L [facility] Anion Gap 16(H) 5 - 15 mmol/L [facility] Calcium 9.6 8.5 - 10.5 mg/dL [facility] Est Glomerular Filtration Rate 14(L) [...] the following links into your internet browser. [email or web address] Blood specimen (specimen) 12/31/2015 7:59 AM EDT 12/31/2015 8:10 AM EDT Narrative Resulting Agency Comment Spec In Lab Tal Eagle MD CHEMISTRY ORDERAB LES Performing Organization Address [facility]/ZIP Co de Phone Number [facility] [place] [address] * Magnesium (12/31/2015 7:59 AM EDT) [facility] Magnesium 0.75 0.69 - 1.07 mmol/L [facility] Blood specimen (specimen) 12/31/2015 7:59 AM EDT 12/31/2015 8:10 AM EDT Narrative Resulting Agency Comment Spec In Lab Tal Eagle MD CHEMISTRY ORDERAB LES Performing Organization Address [facility] Co de Phone Number [facility] [place] [address] * (ABNORMAL) Basic Metabolic Panel (non-fasting) (12/30/2015 3:43 PM EDT) Glucose 140 65 - 199 mg/dL [facility] Comment:Diabetes: >=200 mg/d L plus symptoms Blood Urea Nitrogen 44(H) 10 - 20 mg/dL [facility] Creatinine 5.20(H) 0.80 - 1.50 mg/dL [facility] Comment: Please note that the pediatric reference intervals supplied above were not validated at [facility]. Results from pediatric patients should be interpreted in conjunction to the patient's age, height and muscle mass. Sodium 142 135 - 145 mmol/L [facility] [...] questions. Chloride 104 98 - 107 mmol/L [facility] Carbon Dioxide 20(L) 22 - 31 mmol/L [facility] Anion Gap 18(H) 5 - 15 mmol/L [facility] Calcium 9.1 8.5 - 10.5 mg/dL [facility] Est Glomerular Filtration Rate 11(L) [...] the following links into your internet browser. [email or web address] Blood specimen (specimen) 12/30/2015 3:43 PM EDT 12/30/2015 4:03 PM EDT Narrative Resulting Agency Comment Spec In Lab Tal Eagle MD CHEMISTRY ORDERAB LES [facility] [place] [address] * CT Abdomen & Pelvis Wo Contrast [...] suggestive of a a gallstone. 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 with left inferior poleexophytic [...] 8:09 AM EDT) Neutrophil % 76.2 % [facility] Neutrophil Absolute 4.53 1.50 - 6.30 x10(3)/mc L [facility] Lymph % 17.3 % [facility] Lymphocytes Abs 1.0 1.0 - 3.6 x10(3)/mc L [facility] Monocyte % 2.0 % [facility] Monocyte Abs 0.1(L) 0.2 - 1.0 x10(3)/mc L [facility] Eos % 3.5 % [facility] Eosinophils Abs 0.2 0.0 - 0.5 x10(3)/mc L [facility] Basophil % 0.7 % [facility] Baso Absolute 0.0 0.0 - 0.2 x10(3)/[facility] Immature Gran % 0.30 % [facility] Comment: Immature granulocytes(IG's)percentage and absolute count will include metamyelocytes, myelocytes, and promyelocytes. Blood smears from CBCs yielding IG's will be scanned manually for concordance. If this scan disagrees with the automated IG or if promyelocytes are noted, a manual differential will be performed. Immature Gran Absolute 0.02 0.00 - 0.05 x10(3)/[facility] Blood specimen (specimen) 12/30/2015 8:09 AM EDT 12/30/2015 8:27 AM EDT Narrative Resulting Agency Comment Spec In Lab Tal Eagle MD HEMATOLOGY ORDERA BLES Performing Organization Address City/State/[facility] Co de Phone Number [facility] [place] [address] * (ABNORMAL) Hemogram (12/30/2015 8:09 AM EDT) White Blood Cell 6.0 4.0 - 10.0 x10(3)/[facility] Red Blood Cell 4.61(L) 4.63 - 6.08 x10(6)/[facility] Hemoglobin 14.6 13.7 - 17.5 gm/dL [facility] Hematocrit 41.7 40.0 - 51.0 % [facility] Mean Cell Volume 90.5 79.0 - 92.0 fL [facility] Mean Cell Hemoglobin 31.7 25.6 - 32.2 pg [facility] Mean Cell Hemoglobin Concentration 35.0 32.0 - 36.5 gm/dL [facility] Platelet 278 145 - 370 x10(3)/[facility] RDW Standard Deviation 46.2(H) 35.0 - 46.0 fL [facility] RDW coefficient of variation 14.2 10.9 - 14.4 % [facility] Mean Platelet Volume 9.2 9.0 - 12.0 fL [facility] Blood specimen (specimen) 12/30/2015 8:09 AM EDT 12/30/2015 8:27 AM EDT Narrative Resulting Agency Comment Spec In Lab Tal Eagle MD HEMATOLOGY ORDERA BLES Performing Organization Address City/[facility]/ZIP Co de Phone Number [facility] [place] [address] * Phosphorus (12/30/2015 8:09 AM EDT) Phosphorus 4.3 2.5 - 4.5 mg/dL [facility] Blood specimen (specimen) 12/30/2015 8:09 AM EDT 12/30/2015 8:27 AM EDT Narrative Resulting Agency Comment Spec In Lab Tal Eagle MD CHEMISTRY ORDERAB LES Performing Organization Address [facility] Co de Phone Number [facility] [place] [address] * Magnesium (12/30/2015 8:09 AM EDT) Magnesium 0.73 0.69 - 1.07 mmol/L [facility] Blood specimen (specimen) 12/30/2015 8:09 AM EDT 12/30/2015 8:27 AM EDT Narrative Resulting Agency Comment Spec In Lab Tal Eagle MD CHEMISTRY ORDERAB LES Performing Organization Address [facility] Co de Phone Number [facility] [place] [address] * (ABNORMAL) Basic Metabolic Panel (non-fasting) (12/30/2015 8:09 AM EDT) Glucose 116 65 - 199 mg/dL [facility] Comment:Diabetes: >=200 mg/d L plus symptoms Blood Urea Nitrogen 45(H) 10 - 20 mg/dL [facility] Creatinine 5.46(H) 0.80 - 1.50 mg/dL [facility] Comment: result [id number] Please note that the pediatric reference intervals supplied above were not validated at [facility]. Results from pediatric patients should be interpreted in conjunction to the patient's age, height and muscle mass. Sodium 143 135 - 145 mmol/L [facility] Potassium 4.5 3.5 - 5.0 mmol/L [facility] Comment: Please note: ??Patients with WBC >100,000 may have falsely elevated Potassium levels. ??For accurate Potassium quantification in these patients send serum separator tube (gold top) for subsequent determinations. ??Contact the Clinical Chemistry Laboratory if there are any questions. Chloride 106 98 - 107 mmol/L [facility] Carbon Dioxide 17(L) 22 - 31 mmol/L [facility] Anion Gap 20(H) 5 - 15 mmol/L [facility] Calcium 9.7 8.5 - 10.5 mg/dL [facility] Est Glomerular Filtration Rate 11(L) [...] the following links into your internet browser. [email or web address] Blood specimen (specimen) 12/30/2015 8:09 AM EDT 12/30/2015 8:27 AM EDT Narrative Resulting Agency Comment Spec In Lab Tal Eagle MD CHEMISTRY ORDERAB LES [facility] [place] [address] * IR all procedures (12/29/2015 3:14 PM [...] placement is requested. Technique: Review of the [facility] exam shows mild hydronephrosis; no perinephric [...] 8:30 AM EDT) Ab Screen Interp Negative [facility] Expires at [id number] on: 01/01/2016 [facility] Blood specimen (specimen) 12/29/2015 8:30 AM EDT 12/29/2015 8:52 AM EDT Narrative Resulting Agency Comment Spec In Lab Tal Eagle MD BLOOD BANK LAB OR DERABLES Performing Organization Address [facility]/ZIP Co de Phone Number [facility] [place] [address] * ABO/Rh Typing (12/29/2015 8:30 AM EDT) ABORH Type AB Pos [facility] Blood specimen (specimen) 12/29/2015 8:30 AM EDT 12/29/2015 8:52 AM EDT Narrative Resulting Agency Comment Spec In Lab Tal Eagle MD BLOOD BANK LAB OR DERABLES Performing Organization Address [facility] Co de Phone Number [facility] [place] [address] * (ABNORMAL) Phosphorus (12/29/2015 6:07 AM EDT) Phosphorus 5.4(H) 2.5 - 4.5 mg/dL [facility] Blood specimen (specimen) Venous Draw / Unknown 12/29/2015 6:07 AM EDT 12/29/2015 6:36 AM EDT Narrative Resulting Agency Comment Spec In Lab Tal Eagle MD CHEMISTRY ORDERAB LES Performing Organization Address City/[facility]/ZIP Co de Phone Number [facility] [place] [address] * (ABNORMAL) Magnesium (12/29/2015 6:07 AM EDT) Magnesium 0.63(L) 0.69 - 1.07 mmol/L [facility] Blood specimen (specimen) Venous Draw / Unknown 12/29/2015 6:07 AM EDT 12/29/2015 6:36 AM EDT Narrative Resulting Agency Comment Spec In Lab Tal Eagle MD CHEMISTRY ORDERAB LES [facility] [place] [address] * Differential, Automated (12/29/2015 6:07 AM EDT) [facility] Neutrophil % 74.4 % [facility] Neutrophil Absolute 5.16 1.50 - 6.30 x10(3)/[facility] Lymph % 17.5 % [facility] Lymphocytes Abs 1.2 1.0 - 3.6 x10(3)/[facility] LABORATORY Monocyte % 3.6 % [facility] Monocyte Abs 0.2 0.2 - 1.0 x10(3)/[facility] LABORATORY Eos % 3.3 % [facility]ORY Eosinophils Abs 0.2 0.0 - 0.5 x10(3)/[facility] Basophil % 0.9 % [facility] Baso Absolute 0.1 0.0 - 0.2 x10(3)/[facility] LABORATORY Immature Gran % 0.30 % [facility] Comment: Immature granulocytes(IG's)percentage and absolute count will include metamyelocytes, myelocytes, and promyelocytes. Blood smears from CBCs yielding IG's will be scanned manually for concordance. If this scan disagrees with the automated IG or if promyelocytes are noted, a manual differential will be performed. Immature Gran Absolute 0.02 0.00 - 0.05 x10(3)/[facility] LABORATORY Blood specimen (specimen) 12/29/2015 6:07 AM EDT 12/29/2015 6:35 AM EDT Narrative Resulting Agency Comment Spec In Lab Tal Eagle MD HEMATOLOGY ORDERA BLES Performing Organization Address City/[facility]/ZIP Co de Phone Number [facility] [place] [address] * (ABNORMAL) Hemogram (12/29/2015 6:07 AM EDT) White Blood Cell 6.9 4.0 - 10.0 x10(3)/mc L [facility] Red Blood Cell 4.15(L) 4.63 - 6.08 x10(6)/mc L [facility] Hemoglobin 12.8(L) 13.7 - 17.5 gm/dL [facility] Hematocrit 37.3(L) 40.0 - 51.0 % [facility] Mean Cell Volume 89.9 79.0 - 92.0 fL [facility] Mean Cell Hemoglobin 30.8 25.6 - 32.2 pg [facility] Mean Cell Hemoglobin Concentration 34.3 32.0 - 36.5 gm/dL [facility] Platelet 259 145 - 370 x10(3)/ L [facility] RDW Standard Deviation 44.7 35.0 - 46.0 fL [facility] RDW coefficient of variation 13.7 10.9 - 14.4 % [facility] Mean Platelet Volume 9.2 9.0 - 12.0 fL [facility] Blood specimen (specimen) 12/29/2015 6:07 AM EDT 12/29/2015 6:35 AM EDT Narrative Resulting Agency Comment Spec In Lab Tal Eagle MD HEMATOLOGY ORDERA BLES Performing Organization Address [facility] Co de Phone Number [facility] [place] [address] * (ABNORMAL) Basic Metabolic Panel (non-fasting) (12/29/2015 6:07 AM EDT) Glucose 121 65 - 199 mg/dL [facility] Comment:Diabetes: >=200 mg/d L plus symptoms Blood Urea Nitrogen 51(H) 10 - 20 mg/dL [facility] Creatinine 6.98(H) 0.80 - 1.50 mg/dL [facility] Comment: Please note that the pediatric reference intervals supplied above were not validated at [facility]. Results from pediatric patients should be interpreted in conjunction to the patient's age, height and muscle mass. Sodium 140 135 - 145 mmol/L [facility] Potassium 4.8 3.5 - 5.0 mmol/L [facility] Comment: Please note: ??Patients with WBC >100,000 may have falsely elevated Potassium levels. ??For accurate Potassium quantification in these patients send serum separator tube (gold top) for subsequent determinations. ??Contact the Clinical Chemistry Laboratory if there are any questions. Chloride 105 98 - 107 mmol/L [facility] Carbon Dioxide 17(L) 22 - 31 mmol/L [facility] Anion Gap 18(H) 5 - 15 mmol/L [facility] Calcium 8.9 8.5 - 10.5 mg/dL [facility] Est Glomerular Filtration Rate 8(L) [...] the following links into your internet browser. [email or web address] Blood specimen (specimen) 12/29/2015 6:07 AM EDT 12/29/2015 6:35 AM EDT Narrative Resulting Agency Comment Spec In Lab Tal Eagle MD CHEMISTRY ORDERAB LES [facility] Organization Address City/State/ZIP Co de Phone Number [address] [place] [address] documented in this encounter Visit Diagnoses Diagnosis [...] procedure.. OK'ed to give by Dr. amaro) 09 (Given - Provider: Cami Leonardo RN) DILTiazem [...] on Thu12/28/15 at 2100, Until Discontinued, Routine 15 (Given - Provider: Ethel Benitez RN)2057 (Given [...] 0627 (Given - Provider: Malina Edmonds RN) 0613 (Given - Provider: Cami Leonardo RN) 0600 [...] RN)2100 (Given - Provider: Magaly Rodrigues, JADEN) 0900 (Not Given - Provider: Cami Leonardo [...] RN) 0921 (See Alternative - Provider: Cami Leonardo, JADEN) pantoprazole (PROTONIX) tablet 40 mg(Linked [...] Benitez RN) 0922 (Given - Provider: Cami Leonardo RN) tacrolimus (PROGRAF) capsule 1 mg 1 mg, Oral, 2 TIMES DAILY, First dose on Thu12/28/15 at 2100, Until Discontinued, Routine 915 (Given - Provider: Ethel Benitez RN)2056 (Given - Provider: Cami Leonardo RN) 0834 (Given - Provider: Ethel Benitez RN)2099 [...] at 2115, Until Laura 01/03/16 at 0835 2115 (New Bag - Provider: [...] Routine documented in this encounter Care Teams Liquor Merchant Relationship Specialty Start Date End Date Albania Denis DO [address] [place] [address] [address] [facility] [address] [place] [address] PCP - General 09/03/12 03/17/22 Ruchi Valles RN Nurse Clinic Transplant Surgery 07/30/15 documented as of this encounter
--- OUTSIDE RECORDS SUMMARY | 2024-05-16 17:35 | XMS_ITS | Encounter Summary ---
Author Organization [facility] [place] [address] Care Team Providers Care Utilization Review Specialist Name Role Phone Urbano Denis DO Primary Care Provider Reason for Visit * Auth/Cert Specialty Diagnoses / Procedures Referred By Humberto flor Referred To Contact Diagnoses RAY (acute kidney injury) RAY - RO REJECTION / SP RENAL TRANSPLANT Referral ID Status Reason Start Date Expiration Date Visits Re quested Visits Authorized [id number] 1 Encounter Details Date Type Department Care Team (Latest Contact Info) Description 12/28/2015 9:00 AM EDT Laboratory Appointment Lab [address] [place] [address] Kidney replaced by transplant Social [...] EST TH Visit (TeleHealth) Cardiology at [address] [id number] Byron Brown MD [facility] [place] [address] 07/14/2024 10:00 AM EST Hospital Encounter Non-Invasive [place] [address] Arrived documented as of [...] Result (12/28/2015 9:14 AM EDT) Pathologist [facility] BKV Blood Result Positive [facility] BKV Blood Interp [...] DNA isolated from plasma was performed using Hepa Wash BKV (ASR) [employer] and the [employer] 7500 FAST Real-Time PCR System. In addition, the ??PCR product sequence is confirmed using physical properties (melting curve analysis). This test was developed and its performance determined by the [facility] Molecular Pathology Laboratory. It has not been cleared or approved by the U.S. Food and Drug Administration. This test is used for clinical purposes and should not be considered investigational or for research purposes. The Molecular Pathology Laboratory is certified by the Clinical Laboratory Improvement Act of 1988 and as such is allowed to perform high complexity clinical testing. [facility] Comment: [VERIFIED DATE]01.02.16 Verified By:Fatemeh Garcia (Electronic Signature) Blood specimen (specimen) 12/28/2015 9:14 AM EDT 12/28/2015 9:36 AM EDT Narrative Resulting Agency Comment Spec In Lab Tal Eagle MD HEMATOLOGY ORDERA BLES [facility] [place] [address] * Differential, Automated (12/28/2015 9:14 AM EDT) Pathologist [facility] Neutrophil % 71.1 % [facility] Neutrophil Absolute 5.05 1.50 - 6.30 x10(3)/mcL [facility] Lymph % 19.8 % [facility] Lymphocytes Abs 1.4 1.0 - 3.6 x10(3)/[facility] LABORATORY Monocyte % 4.1 % [facility] Monocyte Abs 0.3 0.2 - 1.0 x10(3)/[facility] LABORATORY Eos % 3.2 % [facility] Eosinophils Abs 0.2 0.0 - 0.5 x10(3)/[facility] LABORATORY Basophil % 1.5 % [facility] Baso Absolute 0.1 0.0 - 0.2 x10(3)/[facility] LABORATORY Immature Gran % 0.30 % [facility] Comment: Immature granulocytes(IG's)percentage and absolute count will include metamyelocytes, myelocytes, and promyelocytes. Blood smears from CBCs yielding IG's will be scanned manually for concordance. If this scan disagrees with the automated IG or if promyelocytes are noted, a manual differential will be performed. Immature Gran Absolute 0.02 0.00 - 0.05 x10(3)/[facility] LABORATORY Blood specimen (specimen) 12/28/2015 9:14 AM EDT 12/28/2015 9:21 AM EDT Narrative Resulting Agency Comment Spec In Lab Tal Eagle MD HEMATOLOGY ORDERA BLES Performing Organization Address City/State/[facility] Co de Phone Number [facility] [place] [address] * (ABNORMAL) Hemogram (12/28/2015 9:14 AM EDT) White Blood Cell 7.1 4.0 - 10.0 x10(3)/mc L [facility] Red Blood Cell 4.28(L) 4.63 - 6.08 x10(6)/mc L [facility] Hemoglobin 13.6(L) 13.7 - 17.5 gm/dL [facility] Hematocrit 38.9(L) 40.0 - 51.0 % [facility] Mean Cell Volume 90.9 79.0 - 92.[address] [facility] Mean Cell Hemoglobin 31.8 25.6 - 32.[address] [facility] Mean Cell Hemoglobin Concentration 35.0 32.0 - 36.5 gm/dL [facility] Platelet 279 145 - 370 x10(3)/mc L [facility] RDW Standard Deviation 45.7 35.0 - 46.[address] [facility] RDW coefficient of variation 13.9 10.9 - 14.4 % [facility] Mean Platelet Volume 8.9(L) 9.0 - 12.[address] [facility] Blood specimen (specimen) 12/28/2015 9:14 AM EDT 12/28/2015 9:21 AM EDT Narrative Resulting Agency Comment Spec In Lab Tal Eagle MD HEMATOLOGY ORDERA BLES [facility] [place] [address] * (ABNORMAL) Comprehensive metabolic panel (non-fasting) (12/28/2015 9:14 AM EDT) Glucose 124 65 - 199 mg/dL [facility] Comment:Diabetes: >=200 mg/d L plus symptoms Blood Urea Nitrogen 51(H) 10 - 20 mg/dL [facility] Creatinine 7.29(H) 0.80 - 1.50 mg/dL [facility] Comment: Please note that the pediatric reference intervals supplied above were not validated at [facility]. Results from pediatric patients should be interpreted in conjunction to the patient's age, height and muscle mass. Sodium 138 135 - 145 mmol/L [facility] Potassium 5.2(H) 3.5 - 5.0 mmol/L [facility] [...] 8.0 gm/dL [facility] Albumin 4.1 3.2 - 5.2 gm/dL [facility] Aspartate Aminotransferase 16 0 - 39 unit/L [facility] Alanine Aminotransferase 11 0 - 55 unit/L [facility] Alkaline Phosphatase 74 40 - 120 unit/L [facility] Bilirubin, Total 0.7 0.2 - 1.3 mg/dL [facility] Bilirubin, Direct 0.2 0.0 - 0.3 mg/dL [facility] Est Glomerular Filtration Rate 8(L) >=60 [facility] Comment: This [...] the following links into your internet browser. [email or web address] Blood specimen (specimen) 12/28/2015 9:14 AM EDT 12/28/2015 9:21 AM EDT Narrative Resulting Agency Comment Spec In Lab Tal Eagle MD CHEMISTRY ORDERAB LES [facility] [address] * (ABNORMAL) Magnesium (12/28/2015 9:14 AM EDT) Magnesium 0.67(L) 0.69 - 1.07 mmol/L [facility] Blood specimen (specimen) 12/28/2015 9:14 AM EDT 12/28/2015 9:21 AM EDT Narrative Resulting Agency Comment Spec In Lab Tal Eagle MD CHEMISTRY ORDERAB LES [facility] [place] [address] * (ABNORMAL) Phosphorus (12/28/2015 9:14 AM EDT) Phosphorus 6.0(H) 2.5 - 4.5 mg/dL [facility] Blood specimen (specimen) 12/28/2015 9:14 AM EDT 12/28/2015 9:21 AM EDT Narrative Resulting Agency Comment Spec In Lab Tal Eagle MD CHEMISTRY ORDERAB LES Performing Organization Address City/[facility]/ZIP Co de Phone Number [facility] [place] [address] * (ABNORMAL) Uric acid (12/28/2015 9:14 AM EDT) Uric Acid 11.4(H) 3.5 - 8.5 mg/dL [facility] Blood specimen (specimen) 12/28/2015 9:14 AM EDT 12/28/2015 9:21 AM EDT Narrative Resulting Agency Comment Spec In Lab Tal Eagle MD CHEMISTRY ORDERAB LES Performing Organization Address City/[facility]/ZIP Co de Phone Number [facility] [place] [address] * Tacrolimus level (12/28/2015 9:14 AM EDT) Tacrolimus 6.5 ng/mL [facility] Comment:Trough therapeutic: 5-15 ng/mL Blood specimen (specimen) 12/28/2015 9:14 AM EDT 12/28/2015 11:50 AM EDT Narrative Resulting Agency Comment Spec In Lab Tal Eagle MD CHEMISTRY ORDERAB LES Performing Organization Address [facility] Co de Phone Number [facility] [place] [address] * Reticulocyte Count (12/28/2015 9:14 AM EDT) Reticulocyte % 1.0 0.5 - 2.4 % [facility] Retic Abs # 0.040 0.027 - 0.095 x10(6)/mcL [facility] Immature Retic% 6.1 2.3 - 15.9 % [facility] Reticulated Hgb 32.7 28.5 - 38.[address] [facility] Immature Plt % 1.4 0.0 - 7.4 % [facility] Blood specimen (specimen) 12/28/2015 9:14 AM EDT 12/28/2015 9:21 AM EDT Narrative Resulting Agency Comment Spec In Lab Tal Eagle MD HEMATOLOGY ORDERA BLES Performing Organization Address [facility] de Phone Number [facility] [place] [address] * Cholesterol, total (12/28/2015 9:14 AM EDT) Cholesterol, Total 172 <=199 mg/dL [facility] Comment: Recommendations of the NCEP Adult Treatment Panel for the following risk cutoff thresholds for the [place] population: Desirable: <200 mg/dL Borderline High: 200-239 mg/dL High: > or = 240 mg/dL Blood specimen (specimen) 12/28/2015 9:14 AM EDT 12/28/2015 9:21 AM EDT Narrative Resulting Agency Comment Spec In Lab Tal Eagle MD CHEMISTRY ORDERAB LES Performing Organization Address City/[facility] Co de Phone Number [facility] [place] [address] * (ABNORMAL) Urine culture (12/28/2015 9:13 AM EDT) Urine Culture 1,000-9,000 cfu/ml Gram Positive organisms , probable contaminant(A ) [facility] Urine specimen (specimen) 12/28/2015 9:13 AM EDT 12/28/2015 10:10 AM EDT Narrative Resulting Agency Comment Spec In Lab Tal Eagle MD MICROBIOLOGY - NERAL ORDERABLES [facility] [address] * Protein/Creatinine Ratio, urine (12/28/2015 9:13 AM EDT) Creatinine, Urine 75 mg/dL [facility] Protein, Urine 9 0 - 12 mg/dL [facility] Protein / Creatinine Ratio, Urine 0.[address] [facility] Urine specimen (specimen) 12/28/2015 9:13 AM EDT 12/28/2015 9:31 AM EDT Narrative Resulting Agency Comment Spec In Lab Tal Eagle MD URINE ORDERABLES Performing Organization Address City/[facility] Co de Phone Number [facility] [place] [address] * (ABNORMAL) Urinalysis with reflex Culture (12/28/2015 [...] LABORATORY Leukocytes, Urine Dipstick Trace(A) Negative [facility] LABORATORY Appearance, Urine Dipstick Clear Clear [facility] Specific [place] Urine Automated 1.009 1.002 - 1.030 [facility] Color, Urine Dipstick Straw Yellow [facility] RBC, Urine <1 0 - 3 /HPF [facility] WBC, Urine 6(H) 0 - 3 /HPF [facility] Bacteria, Urine Rare(A) None /HPF [facility] Squamous Epithelial Cells, Urine <1 <=4 /HPF [facility] Reflex to Culture Yes [facility] Urine specimen (specimen) 12/28/2015 9:13 AM EDT 12/28/2015 9:31 AM EDT Narrative Resulting Agency Comment Spec In Lab Tal Eagle MD URINE ORDERABLES [facility] [place] [address] documented in this encounter Visit Diagnoses Diagnosis Kidney replaced by transplant documented in this encounter Care Teams Utilization Review Specialist Relationship Specialty Start Date End Date Urbano Denis DO [address] [place] [address] PCP - General 09/03/12 03/17/22 Ruchi Valles RN Nurse Clinic Transplant Surgery 07/30/15 documented as of this encounter
--- OUTSIDE RECORDS SUMMARY | 2024-05-16 17:35 | XMS_ITS | Encounter Summary ---
Author Organization [facility] [place] [address] Care Team Providers Care Pest Control Service Sales Agent Name Role Phone Adeel Urbano KIRBY Primary Care Provider [phone] Reason for Visit * Reason Comments Kidney Transplant Follow-up Immunotherapy Acute Kidney Injury * Auth/Cert Specialty Diagnoses / Procedures Referred By Humberto flor Referred To Contact Diagnoses RAY (acute kidney injury) RAY - RO REJECTION / SP RENAL TRANSPLANT Referral ID Status Reason Start Date Expiration Date Visits Re quested Visits Authorized [id number] 1 1 Encounter Details Date Type Department Care Team (Latest Contact Info) Description 12/28/2015 10:00 AM EDT Office Visit [place] [address] Madhu Eagle MD [facility] [place] [address] Kidney replaced by transplant; RAY (acute kidney [...] Ferrer MD - 12/28/2015 10:23 AM EDT [facility] Transplant Nephrology Follow Up Ethel Bolden [id number] Transplant ID: Date:? 12/28/2015?? Patient:? Ethel [...] Negative mcL Appearance UA Clear Clear Spec Hubbard UA 1.009 1.002 - 1.030 Color UA [...] Miguel Ferrer MD Nephrology fellow Pager # [phone] I reviewed all of the above findings [...] EST TH Visit (TeleHealth) Cardiology at [address] [phone] Byron Brown MD [facility] [place] [address] 07/14/2024 10:00 AM EST Hospital Encounter Non-Invasive [place] [id number] Arrived documented as of this encounter Results [...] 03:32 pm) PATIENT INFO: ID #: ? [id number] ? : [birth year] (65 yrs) Name: ? ETHEL Gomez SHAKIRAANARAMÓN ? Visit Date:12/28/2015 03:01 pm PERFORMED BY: Performed By: ? Kristin Fletcher RDMS Attending: ?Alec GERBER, Guy Vargas Referred By: ?MADHU EAGLE MD SERVICE(S) PROVIDED: ??URTPL - Ultrasound Renal Transplant - Left - [id number] INDICATIONS: ??acute rise in creat. rule out [...] Final 12/28/2015 03:32pm) PATIENT INFO: ID #: [id number] : [birth year] (65 yrs) Name: ETHEL Gomez SHAKIRAANARAMÓN Visit Date:12/28/2015 03:01 pm PERFORMED BY: Performed By: Kristin Fletcher RDMS Attending: Guy Michael MD Referred By: MADHU EAGLE MD SERVICE(S) PROVIDED: URTPL - Ultrasound Renal Transplant - Left - [id number] INDICATIONS: acute rise in creat. rule out [...] EDT) Glucose 124 65 - 199 mg/dL [facility] Comment:Diabetes: >=200 mg/d L plus symptoms Blood Urea Nitrogen 51(H) 10 - 20 mg/dL [facility] Creatinine 7.29(H) 0.80 - 1.50 mg/dL [facility] Comment: Please note that the pediatric reference intervals supplied above were not [place] [facility] Results from pediatric patients should be interpreted in conjunction to the patient's age, height and muscle mass. Sodium 138 135 - 145 mmol/L [facility] Potassium 5.2(H) 3.5 - 5.0 mmol/L [facility] [...] mmol/L [facility] Anion Gap 18(H) 5 - 15 mmol/L [facility] Calcium 9.3 8.5 - 10.5 mg/dL [facility] Protein, Total 7.7 6.1 - 8.0 gm/dL [facility] Albumin 4.1 3.2 - 5.2 gm/dL [facility] Aspartate Aminotransferase 16 0 - 39 unit/L [facility] Alanine Aminotransferase 11 0 - 55 unit/L [facility] Alkaline Phosphatase 74 40 - 120 unit/L [facility] Bilirubin, Total 0.7 0.2 - 1.3 mg/dL [facility] Bilirubin, Direct 0.2 0.0 - 0.3 mg/dL [facility] Est Glomerular Filtration Rate 8(L) >=60 [facility] Comment: This [...] the following links into your internet browser. [email or web address] Blood specimen (specimen) 12/28/2015 9:14 AM EDT 12/28/2015 9:21 AM EDT Narrative Resulting Agency Comment Spec In Lab Madhu Eagle MD CHEMISTRY ORDERAB LES Performing Organization Address [facility]/ZIP Co de Phone Number [facility] [place] [address] * (ABNORMAL) Magnesium (12/28/2015 9:14 AM EDT) Magnesium 0.67(L) 0.69 - 1.07 mmol/L [facility] Blood specimen (specimen) 12/28/2015 9:14 AM EDT 12/28/2015 9:21 AM EDT Narrative Resulting Agency Comment Spec In Lab Madhu Eagle MD CHEMISTRY ORDERAB LES Performing Organization Address City/[facility]/ZIP Co de Phone Number [facility] [place] [address] * (ABNORMAL) Phosphorus (12/28/2015 9:14 AM EDT) Phosphorus 6.0(H) 2.5 - 4.5 mg/dL [facility] Blood specimen (specimen) 12/28/2015 9:14 AM EDT 12/28/2015 9:21 AM EDT Narrative Resulting Agency Comment Spec In Lab Madhu Eagle MD CHEMISTRY ORDERAB LES Performing Organization Address City/[facility] Co de Phone Number [facility] [place] [address] * (ABNORMAL) Uric acid (12/28/2015 9:14 AM EDT) Uric Acid 11.4(H) 3.5 - 8.5 mg/dL [facility] Blood specimen (specimen) 12/28/2015 9:14 AM EDT 12/28/2015 9:21 AM EDT Narrative Resulting Agency Comment Spec In Lab Madhu Eagle MD CHEMISTRY ORDERAB LES Performing Organization Address [facility] Co de Phone Number [facility] [place] [address] * Tacrolimus level (12/28/2015 9:14 AM EDT) Tacrolimus 6.5 ng/mL [facility] Comment:Trough therapeutic: 5-15 ng/mL Blood specimen (specimen) 12/28/2015 9:14 AM EDT 12/28/2015 11:50 AM EDT Narrative Resulting Agency Comment Spec In Lab Madhu Eagle MD CHEMISTRY ORDERAB LES Performing Organization Address [facility] Co de Phone Number [facility] [place] [address] * Reticulocyte Count (12/28/2015 9:14 AM EDT) Reticulocyte % 1.0 0.5 - 2.4 % [facility] Retic Abs # 0.040 0.027 - 0.095 x10(6)/mcL [facility] Immature Retic% 6.1 2.3 - 15.9 % [facility] Reticulated Hgb 32.7 28.5 - 38.9 pg [facility] Immature Plt % 1.4 0.0 - 7.4 % [facility] Blood specimen (specimen) 12/28/2015 9:14 AM EDT 12/28/2015 9:21 AM EDT Narrative Resulting Agency Comment Spec In Lab Madhu Eagle MD HEMATOLOGY ORDERA BLES Performing Organization Address [facility] Co de Phone Number [facility] [place] [address] * Cholesterol, total (12/28/2015 9:14 AM EDT) Cholesterol, Total 172 <=199 mg/dL [facility] Comment: Recommendations of the NCEP Adult Treatment Panel for the following risk cutoff thresholds for the [place] population: Desirable: <200 mg/dL Borderline High: 200-239 mg/dL High: > or = 240 mg/dL Blood specimen (specimen) 12/28/2015 9:14 AM EDT 12/28/2015 9:21 AM EDT Narrative Resulting Agency Comment Spec In Lab Madhu Eagle MD CHEMISTRY ORDERAB LES Performing Organization Address [facility] Co de Phone Number [facility] [place] [address] * Protein/Creatinine Ratio, urine (12/28/2015 9:13 AM EDT) Creatinine, Urine 75 mg/dL [facility] Protein, Urine 9 0 - 12 mg/dL [facility] Protein / Creatinine Ratio, Urine 0.1 ratio [facility] Urine specimen (specimen) 12/28/2015 9:13 AM EDT 12/28/2015 9:31 AM EDT Narrative Resulting Agency Comment Spec In Lab Madhu Eagle MD URINE ORDERABLES [facility] [place] [address] * (ABNORMAL) Urinalysis with reflex Culture (12/28/2015 [...] LABORATORY Leukocytes, Urine Dipstick Trace(A) Negative [facility] Appearance, Urine Dipstick Clear Clear [facility] Specific Hubbard Urine Automated 1.009 1.002 - 1.030 [facility] Color, Urine Dipstick Straw Yellow [facility] RBC, Urine <1 0 - 3 /HPF [facility] WBC, Urine 6(H) 0 - 3 /HPF [facility] Bacteria, Urine Rare(A) None /HPF [facility] Squamous Epithelial Cells, Urine <1 <=4 /HPF [facility] Reflex to Culture Yes [facility] Urine specimen (specimen) 12/28/2015 9:13 AM EDT 12/28/2015 9:31 AM EDT Narrative Resulting Agency Comment Spec In Lab Madhu Eagle MD URINE ORDERABLES [facility] [place] [address] documented in this encounter Visit Diagnoses Diagnosis Kidney replaced by transplant RAY (acute kidney injury) Acute kidney failure, unspecified Aftercare following organ transplant Prophylactic immunotherapy Need for prophylactic immunotherapy Kidney replaced by transplant RAY (acute kidney injury) Acute kidney failure, unspecified Aftercare following organ transplant Prophylactic immunotherapy Need for prophylactic immunotherapy documented in this encounter Care Teams Pest Control Service Sales Agent Relationship Specialty Start Date End Date Urbano Denis DO [address] [place] [address] PCP - General 09/03/12 03/17/22 Ruchi Valles RN Nurse Clinic Transplant Surgery 07/30/15 documented as of this encounter
--- OUTSIDE RECORDS SUMMARY | 2024-05-16 17:36 | XMS_ITS | Encounter Summary ---
Author Organization [facility] [place] [address] Care Team Providers Care Bakery Helper Name Role Phone [place] Denis DO Primary Care Provider Reason for Visit * Auth/Cert Specialty Diagnoses / Procedures Referred By Humberto t Referred To Contact Diagnoses UTI (urinary tract infection) RECURRENT UTI/KIDNEY [place] 09/2015 Referral ID Status Reason Start Date Expiration Date Visits Re quested Visits Authorized [id number] 1 1 Encounter Details Date Type Department Care Team (Late st Contact Info) Description 12/07/2015 10:26 AM EDT - 12/13/2015 1:51 PM EDT Hospital Encounter [address] [place] [address] Jennifer Amaro MD [facility] [address] [place] [address] Tal Eagle MD [facility] [address] [place] [address] Tachycardia Discharge Disposition: Home Social History Tobacco [...] 9:00 AM DERRICK, STEPHANIE L Lab 3L [facility] 12/28/2015 10:00 AM Tal Eagle MD [...] message. You can also reach the clinical administrative coordinator after hours by calling (ask for the clinical administrative coordinator on-call). General Instructions None Provider Contact Information: [phone] Signed: JOANIE DANG MD 12/13/2015 I reviewed all of the above findings and assessment of Dr. Dang, examined the patient and formulatedthe recommendations which accurately reflect mine. documented in this encounter Discharge Instructions * Patient Instructions* Joanie Dang MD - 12/13/2015 11:40 AM EDT [...] message. You can also reach the clinical administrative coordinator after hours by calling (ask for the clinical administrative coordinator on-call). documented in this encounter Medications [...] PM EDT DEVORA Phelan, MSN, RN P: [phone] Service: Transplant This housing case manager spoke with patient and patient states he does not want Visiting nurses when he returns home. If he needs catheter supplies, he does not want to have [facility] as his supplier. Will discuss further discharge [...] OOB PROPHYLAXIS: bactrim, RBO, PPI DISPO: 4w JOANIE DANG MD 12/12/2015 Pager [phone] I reviewed all of the above findings [...] time. Recommendation: Patient to be seen by Lobby Attendant daily for meal choices. Check weight every [...] OOB PROPHYLAXIS: bactrim, RBO, PPI DISPO: 4w JOANIE DANG MD 12/11/2015 Pager [phone] I reviewed all of the above findings [...] - Start ciprofloxacin 500mg PO BID - Environmental Education Specialist on importance of not taking dairy products, multivitamins, calcium supplements, or divalent cation-containing antacids within 2 hours of taking ciprofloxacin - Duration 14 days from 12/08 to 12/22 Recommendations discussed with primary treating team. ID consult service will continue to follow. Page [phone] with questions or concerns. X Recommendations are above. ID will sign off. If clinical changes occur or new questions arise, [id number]. Patient discussed with ID attending Dr. Yuliet FATIMA MD Fellow, Infectious Disease 12/11/2015 Pager [phone] Attending Addendum: I have seen and examined the patient, reviewed the data and agree with the note by Dr. Fatima. * Angie Rodriguez RN - 12/10/2015 3:27 PM EDT Office of Care Management (OCM) / Meat Seafood Associate(CM)/ Initial Assessment Discussed patient with Provider Team [...] following 11/11 discharge and received those at [facility]. CURRENT FUNCTIONAL STATUS: At functional baseline SOCIAL / FAMILY SUPPORTS: Supportive who is able to assist if needed. ADVANCE DIRECTIVES: Does not have-verbalizing frustration that people always ask me this after thesurgery. He would identify his as person to assist with medical decision making if needed andwas not interested in filling out paperwork. 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 Recommendations are above. ID will sign off. If clinical changes occur or new questions arise, [id number]. Patient discussed with ID attending Dr. Yuliet FATIMA MD Fellow, Infectious Disease 12/10/2015 Pager [phone] Attending Addendum: I have seen and examined [...] DISPO: 4w Marcus Saravia MD 12/09/2015 Pager [phone] Associated attestation - Jennifer Amaro MD - [...] the setting of bacteremia + immunosuppression. * Joanie Dang MD - 12/08/2015 9:00 AM EDT [...] OOB PROPHYLAXIS: bactrim, RBO, PPI DISPO: 4w JOANIE DANG MD PGY-1 12/09/2015 Pager [phone] Associated attestation - Jennifer Amaro MD - [...] Saravia MD - 12/07/2015 10:53 AM EDT [facility] Department [...] EXTREMITY performed by Jennifer Amaro MD at [facility] OR ??? Pro transplantation of kidney N/A 09/16/2015 @KIDNEY TRANSPLANT, WITHOUT RECIPIENT NEPHRECTOMY performed by Franko Larkin MD at [facility] OR ??? Pro transplant, prep cadaver renal graft N/A 09/16/2015 @PREPARATION CADAVERIC RENAL ALLOGRAFT performed by Franko Larkin MD at [facility] OR ??? N/A 09/16/2015 ORGAN ACQUISITION RENAL, CADAVERIC performed by Franko Larkin MD at [facility] OR ALL: No Known Allergies [...] mcL Appearance UA Hazy (A) Clear Spec Marshall UA 1.011 1.002 - 1.030 Color UA [...] Negative mcL Appearance UA Clear Clear Spec Marshall UA 1.005 1.002 - 1.030 Color UA [...] Marcus Saravia MD 12/07/2015 Transplant service pager [phone] Associated attestation - Jennifer Amaro MD - [...] EXTREMITY performed by Jennifer Amaro MD at [facility] OR ??? Pro transplantation of kidney N/A 09/16/2015 @KIDNEY TRANSPLANT, WITHOUT RECIPIENT NEPHRECTOMY performed by Franko Larkin MD at [facility] OR ??? Pro transplant, prep cadaver renal graft N/A 09/16/2015 @PREPARATION CADAVERIC RENAL ALLOGRAFT performed by Franko Larkin MD at [facility] OR ??? N/A 09/16/2015 ORGAN ACQUISITION RENAL, CADAVERIC performed by Franko Larkin MD at [facility] OR No family history on [...] Shagufta Villasenor MD Nephrology fellow Pager # [phone] I reviewed all of the above findings [...] EXTREMITY performed by Jennifer Amaro MD at [facility] OR ??? Pro transplantation of kidney N/A 09/16/2015 @KIDNEY TRANSPLANT, WITHOUT RECIPIENT NEPHRECTOMY performed by Franko Larkin MD at [facility] OR ??? Pro transplant, prep cadaver renal graft N/A 09/16/2015 @PREPARATION CADAVERIC RENAL ALLOGRAFT performed by Franko Larkin MD at [facility] OR ??? N/A 09/16/2015 ORGAN ACQUISITION RENAL, CADAVERIC performed by Franko Larkin MD at [facility] OR Social History and Habits: [...] The U/A obtained off a clean catheter ([id number]) does not have a particularly large number [...] continue to follow patient. Page us at [phone] with any further questions or concerns. Recommendations are above and were discussed with the primary treating team. ID will sign off. Please page if further consultation required. This patient was seen and discussed with ID attending Dr. Yuliet FATIMA MD Fellow, Infectious Disease 12/07/2015 Pager [phone] Attending Addendum: I have seen and examined the patient, reviewed the data and agree with the note by Dr. Fatima. documented in this encounter Plan of Treatment Upcoming Encounters Date Type Department Care Team (Late st Contact Info) Description 06/22/2024 11:00 AM EST TH Visit (TeleHealth) Cardiology at [address] [address] Byron Damon MD [facility] [place] [address] 07/14/2024 10:00 AM EST Hospital Encounter [place] [phone] Arrived documented as of this encounter Procedures [...] (12/13/2015 7:45 AM EDT) Tacrolimus 5.7 ng/mL [facility] Comment:Trough therapeutic: 5-15 ng/mL Blood specimen (specimen) 12/13/2015 7:45 AM EDT 12/13/2015 10:53 AM EDT Narrative Resulting Agency Comment Spec In Lab Tal Eagle MD CHEMISTRY ORDERAB LES Performing Organization Address City/[facility]/[place] [address] * (ABNORMAL) Differential, Automated (12/13/2015 5:38 AM EDT) Neutrophil % 54.5 % [facility] Neutrophil Absolute 1.50 1.50 - 6.30 x10(3)/mc L [facility] Lymph % 28.4 % [facility] Lymphocytes Abs 0.8(L) 1.0 - 3.6 x10(3)/mc L [facility] Monocyte % 12.0 % [facility] Monocyte Abs 0.3 0.2 - 1.0 x10(3)/mc L [facility] Eos % 2.2 % [facility] Eosinophils Abs 0.1 0.0 - 0.5 x10(3)/mc L [facility] Basophil % 1.8 % [facility] Baso Absolute 0.0 0.0 - 0.2 x10(3)/mc L [facility] Immature Gran % 1.10 % [facility] Comment: Immature granulocytes(IG's)percentage and absolute count will include metamyelocytes, myelocytes, and promyelocytes. Blood smears from CBCs yielding IG's will be scanned manually for concordance. If this scan disagrees with the automated IG or if promyelocytes are noted, a manual differential will be performed. Immature Gran Absolute 0.03 0.00 - 0.05 x10(3)/mc L [facility] Blood specimen (specimen) 12/13/2015 5:38 AM EDT 12/13/2015 6:05 AM EDT Narrative Resulting Agency Comment Spec In Lab Tal Eagle MD HEMATOLOGY ORDERA BLES Performing Organization Address City/[facility]/[place] [address] * (ABNORMAL) Hemogram (12/13/2015 5:38 AM EDT) White Blood Cell 2.8(L) 4.0 - 10.0 x10(3)/ L [facility] Red Blood Cell 4.07(L) 4.63 - 6.08 x10(6)/ L [facility] Hemoglobin 12.7(L) 13.7 - 17.5 gm/dL [facility] Hematocrit 36.8(L) 40.0 - 51.0 % [facility] Mean Cell Volume 90.4 79.0 - 92.0 fL [facility] Mean Cell Hemoglobin 31.2 25.6 - 32.2 pg [facility] Mean Cell Hemoglobin Concentration 34.5 32.0 - 36.5 gm/dL [facility] Platelet 210 145 - 370 x10(3)/[facility] RDW Standard Deviation 43.6 35.0 - 46.0 fL [facility] RDW coefficient of variation 13.3 10.9 - 14.4 % [facility] Mean Platelet Volume 9.7 9.0 - 12.0 fL [facility] Blood specimen (specimen) 12/13/2015 5:38 AM EDT 12/13/2015 6:05 AM EDT Narrative Resulting Agency Comment Spec In Lab Tal Eagle MD HEMATOLOGY ORDERA BLES [facility] [place] [address] * Phosphorus (12/13/2015 5:38 AM EDT) Phosphorus 2.7 2.5 - 4.5 mg/dL [facility] Blood specimen (specimen) 12/13/2015 5:38 AM EDT 12/13/2015 6:05 AM EDT Narrative Resulting Agency Comment Spec In Lab Tal Eagle MD CHEMISTRY ORDERAB LES Performing Organization Address City/[facility]/ZIP Co de Phone Number [facility] [place] [address] * Magnesium (12/13/2015 5:38 AM EDT) [facility] Magnesium 0.71 0.69 - 1.07 mmol/L [facility] Blood specimen (specimen) 12/13/2015 5:38 AM EDT 12/13/2015 6:05 AM EDT Narrative Resulting Agency Comment Spec In Lab Tal Eagle MD CHEMISTRY ORDERAB LES Performing Organization Address [facility] Co de Phone Number [facility] [place] [address] * (ABNORMAL) Basic Metabolic Panel (non-fasting) (12/13/2015 5:38 AM EDT) [facility] Glucose 144 65 - 199 mg/dL [facility] Comment:Diabetes: >=200 mg/d L plus symptoms Blood Urea Nitrogen 16 10 - 20 mg/dL [facility] Creatinine 1.56(H) 0.80 - 1.50 mg/dL [place] [...] questions. Chloride 101 98 - 107 mmol/L [facility] [...] the following links into your internet browser. [email or web address] Blood specimen (specimen) 12/13/2015 5:38 AM EDT 12/13/2015 6:05 AM EDT Narrative Resulting Agency Comment Spec In Lab Tal Eagle MD CHEMISTRY ORDERAB LES [facility] [place] [address] * (ABNORMAL) Basic Metabolic Panel (non-fasting) (12/12/2015 4:08 PM EDT) Glucose 150 65 - 199 mg/dL [facility] Comment:Diabetes: >=200 mg/d L plus symptoms Blood Urea Nitrogen 14 10 - 20 mg/dL [facility] Creatinine 1.68(H) 0.80 - 1.50 mg/dL [facility] Comment: Please note that the pediatric reference intervals supplied above were not validated at [facility]. Results from pediatric patients should be interpreted in conjunction to the patient's age, height and muscle mass. Sodium 138 135 - 145 mmol/L [facility] Potassium 3.4(L) 3.5 - 5.0 mmol/L [facility] Comment: Please note: ??Patients with WBC >100,000 may have falsely elevated Potassium levels. ??For accurate Potassium quantification in these patients send serum separator tube (gold top) for subsequent determinations. ??Contact the Clinical Chemistry Laboratory if there are any questions. Chloride 98 98 - 107 mmol/L [place] [...] the following links into your internet browser. [email or web address] Blood specimen (specimen) 12/12/2015 4:08 PM EDT 12/12/2015 4:13 PM EDT Narrative Resulting Agency Comment Spec In Lab Tal Eagle MD CHEMISTRY ORDERAB LES [facility] [place] [address] * (ABNORMAL) Differential, Automated (12/12/2015 6:14 AM EDT) Neutrophil % 52.9 % [facility] Neutrophil Absolute 1.42(L) 1.50 - 6.30 x10(3)/mc L [facility] Lymph % 27.6 % [facility] Lymphocytes Abs 0.7(L) 1.0 - 3.6 x10(3)/mc L [facility] Monocyte % 12.7 % [facility] Monocyte Abs 0.3 0.2 - 1.0 x10(3)/mc L [facility] Eos % 3.4 % [facility] Eosinophils Abs 0.1 0.0 - 0.5 x10(3)/mc L [facility] Basophil % 1.9 % [facility] Baso Absolute 0.0 0.0 - 0.2 x10(3)/[facility] Immature Gran % 1.50 % [facility] Comment: Immature granulocytes(IG's)percentage and absolute count will include metamyelocytes, myelocytes, and promyelocytes. Blood smears from CBCs yielding IG's will be scanned manually for concordance. If this scan disagrees with the automated IG or if promyelocytes are noted, a manual differential will be performed. Immature Gran Absolute 0.04 0.00 - 0.05 x10(3)/[facility] Blood specimen (specimen) 12/12/2015 6:14 AM EDT 12/12/2015 6:33 AM EDT Narrative Resulting Agency Comment Spec In Lab Jennifer Amaro MD HEMATOLOGY ORD ERABLES [facility] [place] [address] * (ABNORMAL) Hemogram (12/12/2015 6:14 AM EDT) White Blood Cell 2.7(L) 4.0 - 10.0 x10(3)/[facility] Red Blood Cell 4.26(L) 4.63 - 6.08 x10(6)/[facility] Hemoglobin 13.6(L) 13.7 - 17.5 gm/dL [facility] Hematocrit 37.8(L) 40.0 - 51.0 % [facility] Mean Cell Volume 88.7 79.0 - 92.0 fL [facility] Mean Cell Hemoglobin 31.9 25.6 - 32.2 pg [facility] Mean Cell Hemoglobin Concentration 36.0 32.0 - 36.5 gm/dL [facility] Platelet 201 145 - 370 x10(3)/[facility] RDW Standard Deviation 44.1 35.0 - 46.0 fL [facility] RDW coefficient of variation 13.7 10.9 - 14.4 % [facility] Mean Platelet Volume 9.3 9.0 - 12.0 fL [facility] Blood specimen (specimen) 12/12/2015 6:14 AM EDT 12/12/2015 6:33 AM EDT Narrative Resulting Agency Comment Spec In Lab Jennifer Amaro MD HEMATOLOGY ORD ERABLES Performing Organization Address City/[facility] Co de Phone Number [facility] [place] [address] * (ABNORMAL) Phosphorus (12/12/2015 6:14 AM EDT) Phosphorus 2.4(L) 2.5 - 4.5 mg/dL [facility] Blood specimen (specimen) 12/12/2015 6:14 AM EDT 12/12/2015 6:33 AM EDT Narrative Resulting Agency Comment Spec In Lab Jennifer Amaro MD CHEMISTRY ROCHELLE JENNINGS Performing Organization Address [facility] Co de Phone Number [facility] [place] [address] * (ABNORMAL) Magnesium (12/12/2015 6:14 AM EDT) Magnesium 0.63(L) 0.69 - 1.07 mmol/L [facility] Blood specimen (specimen) 12/12/2015 6:14 AM EDT 12/12/2015 6:33 AM EDT Narrative Resulting Agency Comment Spec In Lab Jennifer Amaro MD CHEMISTRY ROCHELLE JENNINGS Performing Organization Address [facility] Co de Phone Number [facility] [place] [address] * (ABNORMAL) Basic Metabolic Panel (non-fasting) (12/12/2015 6:14 AM EDT) Glucose 157 65 - 199 mg/dL [facility] Comment:Diabetes: >=200 mg/d L plus symptoms Blood Urea Nitrogen 14 10 - 20 mg/dL [facility] Creatinine 1.49 0.80 - 1.50 mg/dL [facility] Comment: Please note that the pediatric reference intervals supplied above were not validated at [facility]. Results from pediatric patients should be interpreted in conjunction to the patient's age, height and muscle mass. Sodium 138 135 - 145 mmol/L [facility] Potassium 3.5 3.5 - 5.0 mmol/L [facility] [facility] Carbon Dioxide 22 22 - 31 mmol/L [place] [...] the following links into your internet browser. [email or web address] Blood specimen (specimen) 12/12/2015 6:14 AM EDT 12/12/2015 6:33 AM EDT Narrative Resulting Agency Comment Spec In Lab Jennifer Amaro MD CHEMISTRY ROCHELLE JENNINGS [facility] [place] [address] * Phosphorus (12/11/2015 3:37 PM EDT) Pathologist [facility] Phosphorus 2.7 2.5 - 4.5 mg/dL [facility] Blood specimen (specimen) 12/11/2015 3:37 PM EDT 12/11/2015 3:49 PM EDT Narrative Resulting Agency Comment Spec In Lab Tal Eagle MD CHEMISTRY ORDERAB LES Performing Organization Address [facility] Co de Phone Number [facility] [place] [address] * Magnesium (12/11/2015 3:37 PM EDT) [facility] Magnesium 0.75 0.69 - 1.07 mmol/L [facility] Blood specimen (specimen) 12/11/2015 3:37 PM EDT 12/11/2015 3:49 PM EDT Narrative Resulting Agency Comment Spec In Lab Tal Eagle MD CHEMISTRY ORDERAB LES Performing Organization Address [facility] Co de Phone Number [facility] [place] [address] * (ABNORMAL) Basic Metabolic Panel (non-fasting) (12/11/2015 3:37 PM EDT) [facility] Glucose 162 65 - 199 mg/dL [facility] Comment:Diabetes: >=200 mg/d L plus symptoms Blood Urea Nitrogen 15 10 - 20 mg/dL [facility] Creatinine 1.68(H) 0.80 - 1.50 mg/dL [place] [...] questions. Chloride 101 98 - 107 mmol/L [facility] Carbon Dioxide 24 22 - 31 mmol/L [facility] Anion Gap 13 5 - 15 mmol/L [facility] Calcium 8.4(L) 8.5 - 10.5 mg/dL [place] [...] the following links into your internet browser. [email or web address] Blood specimen (specimen) 12/11/2015 3:37 PM EDT 12/11/2015 3:49 PM EDT Narrative Resulting Agency Comment Spec In Lab Tal Eagle MD CHEMISTRY ORDERAB LES Performing Organization Address City/State/[facility] Co de Phone Number [facility] [place] [address] * Urine culture Indwelling Catheter Urine (12/11/2015 7:34 AM EDT) Urine Culture No growth (Less than 1,000 cfu/ml). [facility] Urine specimen obtained via indwelling urinary catheter (specimen) 12/11/2015 7:34 AM EDT 12/11/2015 9:16 AM EDT Narrative Resulting Agency Comment Spec In Lab Jennifer Amaro MD MICROBIOLOGY - GENERAL ORDERABLES [facility] [place] [address] * Blood culture (12/11/2015 7:12 AM EDT) Blood Culture No growth at 5 days. [facility] Blood specimen (specimen) STRUCTURE OF RIGHT HAND / Unknown 12/11/2015 7:12 AM EDT 12/11/2015 7:36 AM EDT Narrative Resulting Agency Comment Spec In Lab Tal Eagle MD MICROBIOLOGY - BL OOD ORDERABLES [facility] [place] [address] * (ABNORMAL) Differential, Automated (12/11/2015 6:50 AM EDT) Pathologist [facility] Neutrophil % 56.6 % [facility] Neutrophil Absolute 1.45(L) 1.50 - 6.30 x10(3)/mc L [facility] Lymph % 27.0 % [facility] Lymphocytes Abs 0.7(L) 1.0 - 3.6 x10(3)/mc L [facility] Monocyte % 7.8 % [facility] Monocyte Abs 0.2 0.2 - 1.0 x10(3)/mc L [facility] Eos % 5.5 % [facility] Eosinophils Abs 0.1 0.0 - 0.5 x10(3)/mc L [facility] Basophil % 2.3 % [facility] Baso Absolute 0.1 0.0 - 0.2 x10(3)/mc L [facility] Immature Gran % 0.80 % [facility] Blood specimen (specimen) 12/11/2015 6:50 AM EDT 12/11/2015 7:10 AM EDT Narrative Resulting Agency Comment Spec In Lab Jennifer Amaro MD HEMATOLOGY ORD ERABLES [facility] [place] [address] * (ABNORMAL) Hemogram (12/11/2015 6:50 AM EDT) White Blood Cell 2.6(L) 4.0 - 10.0 x10(3)/[facility] LABORATORY Red Blood Cell 4.03(L) 4.63 - 6.08 x10(6)/[facility] LABORATORY Hemoglobin 12.8(L) 13.7 - 17.5 gm/dL [facility] Hematocrit 37.0(L) 40.0 - 51.0 % [facility] Mean Cell Volume 91.8 79.0 - 92.0 fL [facility] Mean Cell Hemoglobin 31.8 25.6 - 32.2 pg [facility] Mean Cell Hemoglobin Concentration 34.6 32.0 - 36.5 gm/dL [facility] Platelet 194 145 - 370 x10(3)/[facility] LABORATORY RDW Standard Deviation 45.2 35.0 - 46.0 fL [facility] RDW coefficient of variation 13.4 10.9 - 14.4 % [facility] Mean Platelet Volume 9.7 9.0 - 12.0 fL [facility] Blood specimen (specimen) 12/11/2015 6:50 AM EDT 12/11/2015 7:10 AM EDT Narrative Resulting Agency Comment Spec In Lab Jennifer Amaro MD HEMATOLOGY ORD ERABLES Performing Organization Address City/[facility]/ZIP Co de Phone Number [facility] [place] [address] * Blood culture (12/11/2015 6:50 AM EDT) Blood Culture No growth at 5 days. [facility] Blood specimen (specimen) STRUCTURE OF RIGHT HAND / Unknown 12/11/2015 6:50 AM EDT 12/11/2015 7:36 AM EDT Narrative Resulting Agency Comment Spec In Lab Tal Eagle MD MICROBIOLOGY - BL OOD ORDERABLES Performing Organization Address [facility] Co de Phone Number [facility] [place] [address] * (ABNORMAL) Phosphorus (12/11/2015 6:50 AM EDT) Phosphorus 2.2(L) 2.5 - 4.5 mg/dL [facility] Blood specimen (specimen) 12/11/2015 6:50 AM EDT 12/11/2015 7:10 AM EDT Narrative Resulting Agency Comment Spec In Lab Jennifer Amaro MD CHEMISTRY ORDTiny JENNINGS Performing Organization Address [facility] Co de Phone Number [facility] [place] [address] * (ABNORMAL) Magnesium (12/11/2015 6:50 AM EDT) Magnesium 0.60(L) 0.69 - 1.07 mmol/L [facility] Blood specimen (specimen) 12/11/2015 6:50 AM EDT 12/11/2015 7:10 AM EDT Narrative Resulting Agency Comment Spec In Lab Jennifer Amaro MD CHEMISTRY ORDTiny JENNINGS Performing Organization Address City/[facility]/ZIP Co de Phone Number [facility] [place] [address] * (ABNORMAL) Basic Metabolic Panel (non-fasting) (12/11/2015 6:50 AM EDT) Glucose 149 65 - 199 mg/dL [facility] Comment:Diabetes: >=200 mg/d L plus symptoms Blood Urea Nitrogen 13 10 - 20 mg/dL [facility] Creatinine 1.59(H) 0.80 - 1.50 mg/dL [facility] Comment: Please note that the pediatric reference intervals supplied above were not validated at [facility]. Results from pediatric patients should be interpreted in conjunction to the patient's age, height and muscle mass. Sodium 143 135 - 145 mmol/L [facility] Potassium 3.5 3.5 - 5.0 mmol/L [facility] Calcium 8.9 8.5 - 10.5 mg/dL [facility] [...] the following links into your internet browser. [email or web address] Blood specimen (specimen) 12/11/2015 6:50 AM EDT 12/11/2015 7:10 AM EDT Narrative Resulting Agency Comment Spec In Lab Jennifer Amaro MD CHEMISTRY ORDTiny JENNINGS Performing Organization Address City/[facility]/ZIP Co de Phone Number [facility] [place] [address] * Phosphorus (12/10/2015 3:12 PM EDT) [facility] Phosphorus 2.5 2.5 - 4.5 mg/dL [facility] Blood specimen (specimen) Venous Draw / Unknown 12/10/2015 3:12 PM EDT 12/10/2015 3:29 PM EDT Narrative Resulting Agency Comment Spec In Lab Jennifer Amaro MD CHEMISTRY ROCHELLE JENNINGS Performing Organization Address [facility] Co de Phone Number [facility] [place] [address] * Magnesium (12/10/2015 3:12 PM EDT) [facility] Magnesium 0.78 0.69 - 1.07 mmol/L [facility] Blood specimen (specimen) Venous Draw / Unknown 12/10/2015 3:12 PM EDT 12/10/2015 3:29 PM EDT Narrative Resulting Agency Comment Spec In Lab Jennifer Amaro MD CHEMISTRY ROCHELLE JENNINGS Performing Organization Address [facility] Co de Phone Number [facility] [place] [address] * (ABNORMAL) Basic Metabolic Panel (non-fasting) (12/10/2015 3:12 PM EDT) Pathologist [facility] Glucose 164 65 - 199 mg/dL [facility] Comment:Diabetes: >=200 mg/d L plus symptoms Blood Urea Nitrogen 14 10 - 20 mg/dL [facility] Creatinine 1.81(H) 0.80 - 1.50 mg/dL [facility] Comment: Please note that the pediatric reference intervals supplied above were not validated at [facility]. Results from pediatric patients should be interpreted in conjunction to the patient's age, height and muscle mass. Sodium 144 135 - 145 mmol/L [facility] [...] questions. Chloride 104 98 - 107 mmol/L [facility] Carbon Dioxide 20(L) 22 - 31 mmol/L [facility] Anion Gap 20(H) 5 - 15 mmol/L [facility] Calcium 8.5 8.5 - 10.5 mg/dL [facility] [...] the following links into your internet browser. [email or web address] Blood specimen (specimen) 12/10/2015 3:12 PM EDT 12/10/2015 3:29 PM EDT Narrative Resulting Agency Comment Spec In Lab Jennifer Amaro MD CHEMISTRY ROCHELLE JENNINGS [facility] [place] [address] * US Renal Transplant Left (12/10/2015 2:36 [...] 03:25 pm) Patient Info ID #: ? [id number] ? : [birth year] (65 yrs) Name: ? ETHEL AKINS ? Visit Date:12/10/2015 02:33 pm Performed By Performed By: ? Osmar Dowd RDMS Attending: ?Jewel GERBER, Preeti Sanford Associate: ?Alfredito GERBER, Rocky Vela Referred By: ?JENNIFER AMARO MD Service(s) Provided ??URTPL - Ultrasound Renal Transplant - Left - [id number] Indications ??eval perinephric abscess Renal Allograft Size [...] Final 12/10/2015 03:25pm) Patient Info ID #: [id number] : [birth year] (65 yrs) Name: ETHEL AKINS Visit Date:12/10/2015 02:33 pm Performed By Performed By: Osmar Dowd RDMS Attending: Preeti Holloway MD Associate: Rocky Glaser MD Referred By: JENNIFER AMARO MD Service(s) Provided URTPL - Ultrasound Renal Transplant - Left - [id number] Indications eval perinephric abscess Renal Allograft Size [...] MICROBIOLOGY - BLOOD ORDERABLES Performing Organization Address [facility]/ZIP Co de Phone Number [facility] [place] [address] * Tacrolimus level (12/10/2015 8:25 AM EDT) Tacrolimus 5.0 ng/mL [facility] Comment:Trough therapeutic: 5-15 ng/mL Blood specimen (specimen) 12/10/2015 8:25 AM EDT 12/10/2015 11:08 AM EDT Narrative Resulting Agency Comment Spec In Lab Jennifer Amaro MD CHEMISTRY ORDE RABLENORE Performing Organization Address City/[facility]/ZIP Co de Phone Number [facility] [place] [address] * POCT Glucose (12/10/2015 6:59 AM EDT) Glucose, POC 171 65 - 199 mg/dL [facility] Comment: Supplemental ranges: <140 mg/dL before meals <180 mg/dL all other times of the day Blood specimen (specimen) 12/10/2015 6:59 AM EDT 12/10/2015 6:59 AM EDT Jennifer Amaro MD POINT OF CARE TEST ORDERABLES Performing Organization Address City/[facility]/[place] [address] * (ABNORMAL) Differential, Automated (12/10/2015 5:23 AM EDT) Neutrophil % 62.5 % [facility] Neutrophil Absolute 2.05 1.50 - 6.30 x10(3)/mc L [facility] Lymph % 25.0 % [facility] Lymphocytes Abs 0.8(L) 1.0 - 3.6 x10(3)/ L [facility] Monocyte % 6.4 % [facility] Monocyte Abs 0.2 0.2 - 1.0 x10(3)/ L [facility] Eos % 4.0 % [facility] Eosinophils Abs 0.1 0.0 - 0.5 x10(3)/ L [facility] Basophil % 1.5 % [facility] Baso Absolute 0.0 0.0 - 0.2 x10(3)/mc L [facility] Immature Gran % 0.60 % [facility] Blood specimen (specimen) 12/10/2015 5:23 AM EDT 12/10/2015 5:42 AM EDT Narrative Resulting Agency Comment Spec In Lab Jennifer Amaro MD HEMATOLOGY ORD ERABLES Performing Organization Address City/[facility]/ZIP Co de Phone Number [facility] [place] [address] * (ABNORMAL) Hemogram (12/10/2015 5:23 AM EDT) Pathologist [facility] White Blood Cell 3.3(L) 4.0 - 10.0 x10(3)/ L [facility] Red Blood Cell 3.84(L) 4.63 - 6.08 x10(6)/[facility] LABORATORY Hemoglobin 12.1(L) 13.7 - 17.5 gm/dL [facility] Hematocrit 35.4(L) 40.0 - 51.0 % [facility] Mean Cell Volume 92.2(H) 79.0 - 92.0 fL [facility] Mean Cell Hemoglobin 31.5 25.6 - 32.2 pg [facility] Mean Cell Hemoglobin Concentration 34.2 32.0 - 36.5 gm/dL [facility] Platelet 154 145 - 370 x10(3)/[facility] LABORATORY RDW Standard Deviation 46.1(H) 35.0 - 46.0 fL [facility] RDW coefficient of variation 13.7 10.9 - 14.4 % [facility] Mean Platelet Volume 9.9 9.0 - 12.0 fL [facility] Blood specimen (specimen) 12/10/2015 5:23 AM EDT 12/10/2015 5:42 AM EDT Narrative Resulting Agency Comment Spec In Lab Jennifer Amaro MD HEMATOLOGY ORD ERABLES [facility] [place] [address] * Complement, Total (12/10/2015 5:23 AM EDT) Pathologist [facility] Complement, Total 42 30 - 75 unit/mL [facility] Comment: Test Performed by: [place] [address] Finance Associate: Edinson Garcia II, M.D., Ph.D. Blood specimen (specimen) 12/10/2015 5:23 AM EDT 12/10/2015 9:48 AM EDT Narrative Resulting Agency Comment Spec In Lab Jennifer Amaro MD CHEMISTRY ROCHELLE JENNINGS Performing Organization Address [facility] Co de Phone Number [facility] [place] [address] * C4 Complement (12/10/2015 5:23 AM EDT) Complement C4 37 10 - 40 mg/dL [facility] Blood specimen (specimen) 12/10/2015 5:23 AM EDT 12/10/2015 5:42 AM EDT Narrative Resulting Agency Comment Spec In Lab Jennifer Amaro MD CHEMISTRY ROCHELLE JENNINGS Performing Organization Address [facility] Co de Phone Number [facility] [place] [address] * C3 Complement (12/10/2015 5:23 AM EDT) Complement C3 129 90 - 180 mg/dL [facility] Blood specimen (specimen) 12/10/2015 5:23 AM EDT 12/10/2015 5:42 AM EDT Narrative Resulting Agency Comment Spec In Lab Jennifer Amaro MD CHEMISTRY ORDTiny JENNINGS Performing Organization Address [facility] Co de Phone Number [facility] [place] [address] * (ABNORMAL) C1q Complement (12/10/2015 5:23 AM EDT) Complement C1Q (NOVEMBER) 23(H) 12 - 22 mg/dL [facility] Comment: ADDITIONAL INFORMATION Laboratory developed test Test Performed by: [facility] - [address] [address] Finance Associate: Edinson Garcia II, M.D., Ph.D. Blood specimen (specimen) 12/10/2015 5:23 AM EDT 12/10/2015 8:53 AM EDT Narrative Resulting Agency Comment Spec In Lab Jennifer Amaro MD LAB SEND OUT O RDERABLES Performing Organization Address [facility] [place] [address] * Blood culture (12/10/2015 5:23 AM EDT) Blood Culture No growth at 5 days. [facility] Blood specimen (specimen) 12/10/2015 5:23 AM EDT 12/10/2015 6:07 AM EDT Comment:R HAND Narrative Resulting Agency Comment Spec In Lab Jennifer Amaro MD MICROBIOLOGY - BLOOD ORDERABLES Performing Organization Address [facility] [place] [address] * (ABNORMAL) Phosphorus (12/10/2015 5:23 AM EDT) Phosphorus 2.0(L) 2.5 - 4.5 mg/dL [facility] Blood specimen (specimen) 12/10/2015 5:23 AM EDT 12/10/2015 5:42 AM EDT Narrative Resulting Agency Comment Spec In Lab Jennifer Amaro MD CHEMISTRY ORDE RABLES Performing Organization Address [facility]/[place] [address] * (ABNORMAL) Magnesium (12/10/2015 5:23 AM EDT) Magnesium 0.59(L) 0.69 - 1.07 mmol/L [facility] Blood specimen (specimen) 12/10/2015 5:23 AM EDT 12/10/2015 5:42 AM EDT Narrative Resulting Agency Comment Spec In Lab Jennifer Amaro MD CHEMISTRY ROCHELLE JENNINGS [facility] [place] [address] * (ABNORMAL) Basic Metabolic Panel (non-fasting) (12/10/2015 5:23 AM EDT) Glucose 137 65 - 199 mg/dL [facility] Comment:Diabetes: >=200 mg/d L plus symptoms Blood Urea Nitrogen 14 10 - 20 mg/dL [facility] Creatinine 1.75(H) 0.80 - 1.50 mg/dL [facility] Comment: Please note that the pediatric reference intervals supplied above were not validated at [facility]. Results from pediatric patients should be interpreted in conjunction to the patient's age, height and muscle mass. Sodium 143 135 - 145 mmol/L [facility] Calcium 8.5 8.5 - 10.5 mg/dL [facility] [...] the following links into your internet browser. [email or web address] Blood specimen (specimen) 12/10/2015 5:23 AM EDT 12/10/2015 5:42 AM EDT Narrative Resulting Agency Comment Spec In Lab Jennifer Amaro MD CHEMISTRY ROCHELLE JENNINGS [facility] [place] [address] * (ABNORMAL) Basic Metabolic Panel (non-fasting) (12/09/2015 3:00 PM EDT) Glucose 197 65 - 199 mg/dL [facility] Comment:Diabetes: >=200 mg/d L plus symptoms Blood Urea Nitrogen 19 10 - 20 mg/dL [facility] Creatinine 1.96(H) 0.80 - 1.50 mg/dL [facility] Comment: Please note that the pediatric reference intervals supplied above were not validated at [facility]. Results from pediatric patients should be interpreted in conjunction to the patient's age, height and muscle mass. Sodium 140 135 - 145 mmol/L [facility] Potassium 3.4(L) 3.5 - 5.0 mmol/L [facility] Calcium 8.3(L) 8.5 - 10.5 mg/dL [facility] [...] the following links into your internet browser. [email or web address] Blood specimen (specimen) 12/09/2015 3:00 PM EDT 12/09/2015 3:07 PM EDT Narrative Resulting Agency Comment Spec In Lab Jennifer Amaro MD CHEMISTRY ORDTiny JENNINGS Performing Organization Address [facility] Co de Phone Number [facility] [place] [address] * Sodium, urine, random (12/09/2015 12:24 PM EDT) Sodium, Urine 98 mmol/L [facility] Urine specimen (specimen) 12/09/2015 12:24 PM EDT 12/09/2015 12:36 PM EDT Narrative Resulting Agency Comment Spec In Lab Jennifer Amaro MD URINE ORDERABL ES Performing Organization Address [facility] Phone Number [facility] [place] [address] * Blood culture (12/09/2015 10:32 AM EDT) Blood Culture No growth at 5 days. [facility] Blood specimen (specimen) ANTECUBITAL REGION STRUCTURE / Unknown 12/09/2015 10:32 AM EDT 12/09/2015 11:24 AM EDT Comment:2ND SET Narrative Resulting Agency Comment Spec In Lab Jennifer Amaro MD MICROBIOLOGY - BLOOD ORDERABLES Performing Organization Address [facility] Co de Phone Number [facility] [place] [phone] * Blood culture (12/09/2015 10:20 AM EDT) Blood Culture No growth at 5 days. [facility] Blood specimen (specimen) STRUCTURE OF RIGHT HAND / Unknown 12/09/2015 10:20 AM EDT 12/09/2015 11:31 AM EDT Comment:#1 Narrative Resulting Agency Comment Spec In Lab Jennifer Amaro MD MICROBIOLOGY - BLOOD ORDERABLES Performing Organization Address [facility]/ZIP Co de Phone Number [facility] [place] [address] * Urine culture Indwelling Catheter Urine (12/09/2015 9:58 AM EDT) [facility] Urine Culture No growth (Less than 1,000 cfu/ml). [facility] Urine specimen obtained via indwelling urinary catheter (specimen) 12/09/2015 9:58 AM EDT 12/09/2015 11:26 AM EDT Narrative Resulting Agency Comment Spec In Lab Jennifer Amaro MD MICROBIOLOGY - GENERAL ORDERABLES Performing Organization Address City/[facility]/ZIP Co de Phone Number [facility] [place] [address] * (ABNORMAL) Differential, Automated (12/09/2015 4:41 AM EDT) Neutrophil % 68.1 % [facility] Neutrophil Absolute 3.17 1.50 - 6.30 x10(3)/mc L [facility] Lymph % 18.3 % [facility] Lymphocytes Abs 0.8(L) 1.0 - 3.6 x10(3)/mc L [facility] Monocyte % 5.6 % [facility] Monocyte Abs 0.3 0.2 - 1.0 x10(3)/mc L [facility] Eos % 4.5 % [facility] Eosinophils Abs 0.2 0.0 - 0.5 x10(3)/ L [facility] Basophil % 0.9 % [facility] Baso Absolute 0.0 0.0 - 0.2 x10(3)/[facility] Immature Gran % 2.60 % [facility] Comment: Immature granulocytes(IG's)percentage and absolute count will include metamyelocytes, myelocytes, and promyelocytes. Blood smears from CBCs yielding IG's will be scanned manually for concordance. If this scan disagrees with the automated IG or if promyelocytes are noted, a manual differential will be performed. Immature Gran Absolute 0.12(H) 0.00 - 0.05 x10(3)/[facility] Blood specimen (specimen) 12/09/2015 4:41 AM EDT 12/09/2015 4:56 AM EDT Narrative Resulting Agency Comment Spec In Lab Jennifer Amaro MD HEMATOLOGY ORD ERABLES [facility] [place] [address] * (ABNORMAL) Hemogram (12/09/2015 4:41 AM EDT) White Blood Cell 4.6 4.0 - 10.0 x10(3)/[facility] Red Blood Cell 3.82(L) 4.63 - 6.08 x10(6)/[facility] Hemoglobin 12.2(L) 13.7 - 17.5 gm/dL [facility] Hematocrit 34.8(L) 40.0 - 51.0 % [facility] Mean Cell Volume 91.1 79.0 - 92.0 fL [facility] Mean Cell Hemoglobin 31.9 25.6 - 32.2 pg [facility] Mean Cell Hemoglobin Concentration 35.1 32.0 - 36.5 gm/dL [facility] Platelet 142(L) 145 - 370 x10(3)/mc L [facility] RDW Standard Deviation 46.4(H) 35.0 - 46.0 fL [facility] RDW coefficient of variation 14.0 10.9 - 14.4 % [facility] Mean Platelet Volume 9.9 9.0 - 12.0 fL [facility] Blood specimen (specimen) 12/09/2015 4:41 AM EDT 12/09/2015 4:56 AM EDT Narrative Resulting Agency Comment Spec In Lab Jennifer Amaro MD HEMATOLOGY ORD ERABLES Performing Organization Address City/[facility]/ZIP Co de Phone Number [facility] [place] [address] * Phosphorus (12/09/2015 4:41 AM EDT) Phosphorus 3.1 2.5 - 4.5 mg/dL [facility] Blood specimen (specimen) 12/09/2015 4:41 AM EDT 12/09/2015 4:56 AM EDT Narrative Resulting Agency Comment Spec In Lab Jennifer Amaro MD CHEMISTRY ROCHELLE JENNINGS Performing Organization Address City/[facility]/ZIP Co de Phone Number [facility] [place] [address] * Magnesium (12/09/2015 4:41 AM EDT) Magnesium 0.80 0.69 - 1.07 mmol/L [facility] Blood specimen (specimen) 12/09/2015 4:41 AM EDT 12/09/2015 4:56 AM EDT Narrative Resulting Agency Comment Spec In Lab Jennifer Amaro MD CHEMISTRY ROCHELLE JENNINGS Performing Organization Address City/[facility]/ZIP Co de Phone Number [facility] [place] [address] * (ABNORMAL) Basic Metabolic Panel (non-fasting) (12/09/2015 4:41 AM EDT) Glucose 134 65 - 199 mg/dL [facility] Comment:Diabetes: >=200 mg/d L plus symptoms Blood Urea Nitrogen 21(H) 10 - 20 mg/dL [facility] Creatinine 2.16(H) 0.80 - 1.50 mg/dL [place] questions. Chloride 101 98 - 107 mmol/L [facility] Carbon Dioxide 23 22 - 31 mmol/L [facility] Anion Gap 16(H) 5 - 15 mmol/L [facility] Calcium 8.7 8.5 - 10.5 mg/dL [place] the following links into your internet browser. [email or web address] Blood specimen (specimen) 12/09/2015 4:41 AM EDT 12/09/2015 4:56 AM EDT Narrative Resulting Agency Comment Spec In Lab Jennifer Amaro MD CHEMISTRY ORDTiny JENNINGS Performing Organization Address City/[facility]/ZIP Co de Phone Number [facility] [place] [address] * POCT Glucose (12/08/2015 8:28 PM EDT) Glucose, POC 109 65 - 199 mg/dL [facility] Comment: Supplemental ranges: <140 mg/dL before meals <180 mg/dL all other times of the day Blood specimen (specimen) 12/08/2015 8:28 PM EDT 12/08/2015 8:28 PM EDT Jennifer Amaro MD POINT OF CARE TEST ORDERABLES Performing Organization Address [facility] Co de Phone Number [facility] [place] [address] * (ABNORMAL) Magnesium (12/08/2015 3:59 PM EDT) [facility] Magnesium 0.64(L) 0.69 - 1.07 mmol/L [facility] Blood specimen (specimen) 12/08/2015 3:59 PM EDT 12/08/2015 4:05 PM EDT Narrative Resulting Agency Comment Spec In Lab Jennifer Amaro MD CHEMISTRY ORDTiny JENNINGS Performing Organization Address [facility]/ZIP Co de Phone Number [facility] [place] [address] * (ABNORMAL) Basic Metabolic Panel (non-fasting) (12/08/2015 3:59 PM EDT) Glucose 233(H) 65 - 199 mg/dL [facility] Comment:Diabetes: >=200 mg/d L plus symptoms Blood Urea Nitrogen 24(H) 10 - 20 mg/dL [facility] Creatinine 2.25(H) 0.80 - 1.50 mg/dL [facility] Comment: Please note that the pediatric reference intervals supplied above were not validated at [facility]. Results from pediatric patients should be interpreted in conjunction to the patient's age, height and muscle mass. Sodium 137 135 - 145 mmol/L [facility] Potassium 3.2(L) 3.5 - 5.0 mmol/L [facility] [place] [facility] Carbon Dioxide 21(L) 22 - 31 mmol/L [facility] Anion Gap 17(H) 5 - 15 mmol/L [facility] Calcium 8.0(L) 8.5 - 10.5 mg/dL [place] the following links into your internet browser. [email or web address] Blood specimen (specimen) 12/08/2015 3:59 PM EDT 12/08/2015 4:05 PM EDT Narrative Resulting Agency Comment Spec In Lab Jennifer Amaro MD CHEMISTRY ROCHELLE JENNINGS [facility] [place] [address] * POCT Glucose (12/08/2015 11:40 AM EDT) Glucose, POC 167 65 - 199 mg/dL [facility] Comment: Supplemental ranges: <140 mg/dL before meals <180 mg/dL all other times of the day Blood specimen (specimen) 12/08/2015 11:40 AM EDT 12/08/2015 11:40 AM EDT Jennifer Amaro MD POINT OF CARE TEST ORDERABLES Performing Organization Address [facility] Co de Phone Number [facility] [place] [address] * POCT Glucose (12/08/2015 7:30 AM EDT) Glucose, POC 177 65 - 199 mg/dL [facility] Comment: Supplemental ranges: <140 mg/dL before meals <180 mg/dL all other times of the day Blood specimen (specimen) 12/08/2015 7:30 AM EDT 12/08/2015 7:30 AM EDT Jennifer Amaro MD POINT OF CARE TEST ORDERABLES Performing Organization Address [facility] de Phone Number [facility] [place] [address] * (ABNORMAL) Blood culture (12/08/2015 1:17 AM EDT) Blood Culture Klebsiella oxytoca isolated This organism expresses extended spectrum beta-lactamase which inactivates penicillins, cephalosporins, and aztreonam. Susceptibilitie s previously reported (A) [facility] Gram Stain Bottle Growth detected in aerobic and anaerobic bottles. Gram Negative Rods seen (A) [facility] Organism Gram Negative Rods(A) [facility] Blood specimen (specimen) STRUCTURE OF RIGHT HAND / Unknown 12/08/2015 1:17 AM EDT 12/08/2015 2:20 AM EDT Narrative Resulting Agency Comment Spec In Lab Jennifer Amaro MD MICROBIOLOGY - BLOOD ORDERABLES Performing Organization Address [facility] Co de Phone Number [facility] [place] [address] * Scan, Peripheral Blood (12/08/2015 1:01 AM EDT) Plat estimate Normal [facility] RBC Morphology Normal [facility] Blood specimen (specimen) 12/08/2015 1:01 AM EDT 12/08/2015 1:12 AM EDT Narrative Resulting Agency Comment Spec In Lab Jennifer Amaro MD HEMATOLOGY ORD ERABLES [facility] [place] [address] * (ABNORMAL) Differential, Automated (12/08/2015 1:01 AM EDT) Pathologist [facility] Neutrophil % 79.8 % [facility] Neutrophil Absolute 3.78 1.50 - 6.30 x10(3)/mc L [facility] Lymph % 6.3 % [facility] Lymphocytes Abs 0.3(L) 1.0 - 3.6 x10(3)/ L [facility] Monocyte % 4.9 % [facility] Monocyte Abs 0.2 0.2 - 1.0 x10(3)/ L [facility] Eos % 0.4 % [facility] Eosinophils Abs 0.0 0.0 - 0.5 x10(3)/ L [facility] Basophil % 0.2 % [facility] Baso Absolute 0.0 0.0 - 0.2 x10(3)/mc L [facility] Immature Gran % 8.40 % [facility] Comment: Immature granulocytes(IG's)percentage and absolute count will include metamyelocytes, myelocytes, and promyelocytes. Blood smears from CBCs yielding IG's will be scanned manually for concordance. If this scan disagrees with the automated IG or if promyelocytes are noted, a manual differential will be performed. Immature Gran Absolute 0.40(H) 0.00 - 0.05 x10(3)/mc L [facility] Blood specimen (specimen) 12/08/2015 1:01 AM EDT 12/08/2015 1:12 AM EDT Narrative Resulting Agency Comment Spec In Lab Jennifer Amaro MD HEMATOLOGY ORD ERABLES Performing Organization Address City/[facility]/ZIP Co de Phone Number [facility] [place] [address] * (ABNORMAL) Hemogram (12/08/2015 1:01 AM EDT) White Blood Cell 4.7 4.0 - 10.0 x10(3)/mc L [facility] Red Blood Cell 3.92(L) 4.63 - 6.08 x10(6)/mc L [facility] Hemoglobin 12.6(L) 13.7 - 17.5 gm/dL [facility] Hematocrit 36.2(L) 40.0 - 51.0 % [facility] Mean Cell Volume 92.3(H) 79.0 - 92.0 fL [facility] Mean Cell Hemoglobin 32.1 25.6 - 32.2 pg [facility] Mean Cell Hemoglobin Concentration 34.8 32.0 - 36.5 gm/dL [facility] Platelet 151 145 - 370 x10(3)/mc L [facility] RDW Standard Deviation 46.4(H) 35.0 - 46.0 fL [facility] RDW coefficient of variation 13.9 10.9 - 14.4 % [facility] Mean Platelet Volume 9.8 9.0 - 12.0 fL [facility] Blood specimen (specimen) 12/08/2015 1:01 AM EDT 12/08/2015 1:12 AM EDT Narrative Resulting Agency Comment Spec In Lab Jennifer Amaro MD HEMATOLOGY ORD ERABLES Performing Organization Address City/[facility]/ZIP Co de Phone Number [facility] [place] [address] * (ABNORMAL) Blood culture (12/08/2015 1:01 AM EDT) Pathologist [facility] Blood Culture Klebsiella oxytoca isolated This organism expresses extended spectrum beta-lactamase which inactivates penicillins, cephalosporins, and aztreonam. Susceptibilitie s previously reported (A) [facility] Gram Stain Aerobic Growth detected in aerobic bottle. Gram Negative Rods seen (A) [facility] Gram Stain Anaerobic Growth detected in anaerobic bottle. Gram Negative Rods seen (A) [facility] Organism Gram Negative Rods(A) [facility] Blood specimen (specimen) RIGHT ELBOW REGION STRUCTURE / Unknown 12/08/2015 1:01 AM EDT 12/08/2015 2:20 AM EDT Narrative Resulting Agency Comment Spec In Lab Jennifer Amaro MD MICROBIOLOGY - BLOOD ORDERABLES Performing Organization Address [facility]/[place] [address] * Cryoglobulin (12/08/2015 1:01 AM EDT) [facility] Cryoglobulin See Note [facility] Comment: Cryoglobulins negative at 24 and 72 hours. This test was developed and its performance characteristics determined by [facility]. It has not been cleared [...] MD CHEMISTRY ORDE RABLES Performing Organization Address City/[facility]/ZIP Co de Phone Number [facility] [place] [address] * Hepatitis C RNA, quantitative, PCR (12/08/2015 1:01 AM EDT) [facility] HCV Viral Load 150,327 IU/mL [facility] HCV Viral Load Result: [id number] IU/mL Indication for Study: Hepatitis C Infection [...] [facility] Comment: [VERIFIED DATE]12.12.15 Verified By:Xiomy Gupta (Electronic Signature) Blood specimen (specimen) 12/08/2015 1:01 AM EDT 12/10/2015 11:17 AM EDT Narrative Resulting Agency Comment Spec In Lab Jennifer Amaro MD MOLECULAR ROCHELLE JENNINGS Performing Organization Address [facility] Co de Phone Number [facility] [place] [address] * (ABNORMAL) Phosphorus (12/08/2015 1:01 AM EDT) Phosphorus 1.7(L) 2.5 - 4.5 mg/dL [facility] Blood specimen (specimen) 12/08/2015 1:01 AM EDT 12/08/2015 1:12 AM EDT Narrative Resulting Agency Comment Spec In Lab Jennifer Amaro MD CHEMISTRY ROCHELLE JENNINGS [facility] [place] [address] * (ABNORMAL) Magnesium (12/08/2015 1:01 AM EDT) Magnesium 0.43(L) 0.69 - 1.07 mmol/L [facility] Blood specimen (specimen) 12/08/2015 1:01 AM EDT 12/08/2015 1:12 AM EDT Narrative Resulting Agency Comment Spec In Lab Jennifer Amaro MD CHEMISTRY ROCHELLE JENNINGS [facility] [place] [address] * (ABNORMAL) Basic Metabolic Panel (non-fasting) (12/08/2015 1:01 AM EDT) Glucose 161 65 - 199 mg/dL [facility] Comment:Diabetes: >=200 mg/d L plus symptoms Blood Urea Nitrogen 26(H) 10 - 20 mg/dL [facility] Creatinine 2.27(H) 0.80 - 1.50 mg/dL [facility] Comment: Please note that the pediatric reference intervals supplied above were not validated at [facility]. Results from pediatric patients should be interpreted in conjunction to the patient's age, height and muscle mass. Sodium 140 135 - 145 mmol/L [facility] Potassium 3.5 3.5 - 5.0 mmol/L [facility] Comment: result rechecked-llu Please note: ??Patients with WBC >100,000 may have falsely elevated Potassium levels. ??For accurate Potassium quantification in these patients send serum separator tube (gold top) for subsequent determinations. ??Contact the Clinical Chemistry Laboratory if there are any questions. Chloride 102 98 - 107 mmol/L [facility] Carbon Dioxide 21(L) 22 - 31 mmol/L [facility] Anion Gap 17(H) 5 - 15 mmol/L [facility] Calcium 8.6 8.5 - 10.5 mg/dL [facility] Comment:result rechecked-llu Est Glomerular [...] the following links into your internet browser. [email or web address] Blood specimen (specimen) 12/08/2015 1:01 AM EDT 12/08/2015 1:12 AM EDT Narrative Resulting Agency Comment Spec In Lab Jennifer Amaro MD CHEMISTRY ORDE RABLES Performing Organization Address [facility] Co de Phone Number [facility] [place] [address] * POCT Glucose (12/07/2015 9:07 PM EDT) Pathologist [facility] Glucose, POC 166 65 - 199 mg/dL [facility] Comment: Supplemental ranges: <140 mg/dL before meals <180 mg/dL all other times of the day Blood specimen (specimen) 12/07/2015 9:07 PM EDT 12/07/2015 9:07 PM EDT Jennifer Amaro MD POINT OF CARE TEST ORDERABLES Performing Organization Address [facility]/[employer] de Phone Number [facility] [place] [address] * EKG 12 Lead (12/07/2015 8:48 PM EDT) Ventricular rate 79 BPM MUSE SYSTEM Atrial Rate 79 BPM MUSE SYSTEM P-R Interval 166 ms MUSE SYSTEM QRS Duration 108 ms MUSE SYSTEM Q-T Interval 360 ms MUSE SYSTEM QTC Calculated (Bezet) 412 ms MUSE SYSTEM Calculated P Ringle 30 degrees MUSE SYSTEM Calculated R Ringle -44 degrees MUSE SYSTEM Calculated T Ringle -14 degrees MUSE SYSTEM INTERPRETATION Sinus rhythm [...] PM EDT) Neutrophil % Manual 76 % [facility] Band % 15 % [facility] Lymphocyte Manual 6 % [facility] Monocyte Manual 1 % [facility] Metamyelocyte Manual 2 % [facility] Neutrophil Absolute (ANC) - Manual 2.5 1.5 - 6.3 x10(3)/mc L [facility] Band Abs 0.5 0.2 - 0.6 x10(3)/[facility] Neutrophil Absolute (ANC) - Automated 2.99 1.50 - 6.30 x10(3)/[facility] Lymph Absolute Manual 0.2(L) 1.0 - 3.6 x10(3)/ L [facility] Monocyte Absolute Manual 0.0(L) 0.2 - 1.0 x10(3)/mc L [facility] [place] Absolute Manual 0.1(H) 0.0 - 0.0 x10(3)/[facility] Total Cells Ct 100 [facility] Plat estimate Decreased [facility] RBC Morphology Abnormal [facility] Ovalocytes 1-5 /HPF [facility] Tear Cell 1-5 /HPF [facility] [place] Cells 1-5 /HPF [facility] Blood specimen (specimen) 12/07/2015 8:07 PM EDT 12/07/2015 8:12 PM EDT Narrative Resulting Agency Comment Spec In Lab Jennifer Amaro MD HEMATOLOGY ORD ERABLES [facility] [place] [address] * Red Hold (12/07/2015 8:07 PM EDT) Pathologist [facility] Red Hold Sample in lab. [facility] Blood specimen (specimen) Venous Draw / Unknown 12/07/2015 8:07 PM EDT 12/07/2015 8:43 PM EDT Jennifer Amaro MD CHEMISTRY ROCHELLE JENNINGS [facility] [place] [address] * (ABNORMAL) Hemogram (12/07/2015 8:07 PM EDT) [facility] White Blood Cell 3.3(L) 4.0 - 10.0 x10(3)/mc L [facility] Red Blood Cell 2.39(L) 4.63 - 6.08 x10(6)/mc L [facility] Hemoglobin 7.4(L) 13.7 - 17.5 gm/dL [facility] Comment: This result has been called to JOSE Blum by MELISSA VANEGAS on 12 07 2015 at 2055, and has been read back. Hematocrit 22.2(L) 40.0 - 51.0 % [facility] Mean Cell Volume 92.9(H) 79.0 - 92.0 fL [facility] Mean Cell Hemoglobin 31.0 25.6 - 32.2 pg [facility] Mean Cell Hemoglobin Concentration 33.3 32.0 - 36.5 gm/dL [facility] Platelet 102(L) 145 - 370 x10(3)/mc L [facility] RDW Standard Deviation 46.9(H) 35.0 - 46.0 fL [facility] RDW coefficient of variation 13.8 10.9 - 14.4 % [facility] Mean Platelet Volume 9.5 9.0 - 12.0 fL [facility] Blood specimen (specimen) 12/07/2015 8:07 PM EDT 12/07/2015 8:12 PM EDT Narrative Resulting Agency Comment Spec In Lab Jennifer Amaro MD HEMATOLOGY ORD ERABLES [facility] [place] [address] * Lactate, whole blood, send to lab (12/07/2015 8:07 PM EDT) Lactate WB 0.9 0.5 - 2.2 mmol/L [facility] Blood specimen (specimen) 12/07/2015 8:07 PM EDT 12/07/2015 8:12 PM EDT Narrative Resulting Agency Comment Spec In Lab Jennifer Amaro MD CHEMISTRY ORDE RABLENORE Performing Organization Address City/[facility]/ZIP Co de Phone Number [facility] [place] [address] * XR Chest PA & Lateral (Generic) [...] Glucose, POC 170 65 - 199 mg/dL [facility] Comment: Supplemental ranges: <140 mg/dL before meals <180 mg/dL all other times of the day Blood specimen (specimen) 12/07/2015 5:14 PM EDT 12/07/2015 5:14 PM EDT Jennifer Amaro MD POINT OF CARE TEST ORDERABLES [facility] [place] [address] * Duplex Renal Transplant, Unilat (12/07/2015 10:46 AM EDT) VB Text Report Department: Vascular Surgery Lab Patient: [id number] (ETHEL AKINS) CPT: 29762N ICD10: N18.5 Referring Physician: JENNIFER AMARO ?? 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 flow/obstruction ICD10 Diagnosis Code: N18.5 Findings: Ama Renal Aorta ? PSV (cm/s): 93 ? EDV (cm/s): 7 Renal Hilum, Right ? RI: 1.47 Renal Artery Proximal, Left ? PSV (cm/s): 83 ? EDV (cm/s): 20 ? RAR-MN: 0.9 ? RI: 0.76 Renal Artery Mid, Left ? PSV (cm/s): 122 ? EDV (cm/s): 27 ? RAR-MN: 1.3 ? RI: 0.78 Renal Artery Distal, Left ? PSV (cm/s): 138 ? EDV (cm/s): 44 ? RAR-MN: 1.5 ? RI: 0.68 Upper [place] Renal [...] Routine 1211 (Given - Provider: Selena Nicolas RN)164 (Given - Provider: Selena Nicolas RN)2141 (Given [...] Unit) documented in this encounter Care Teams Bakery Helper Relationship Specialty Start Date End Date [place] Denis DO [address] [place] [address] [address] [facility] [address] [place] [address] PCP - General 09/03/12 03/17/22 Ruchi Valles RN Nurse Clinic Transplant Surgery 07/30/15 documented as of this encounter
--- OUTSIDE RECORDS SUMMARY | 2024-05-16 17:36 | XMS_ITS | Encounter Summary ---
Author Organization [facility] [place] [address] Care Team Providers Care Spoon Maker Name Role Phone [place] Denis DO Primary Care Provider [phone] Reason for Visit * Auth/Cert Specialty Diagnoses / Procedures Referred By Humberto t Referred To Contact Diagnoses RAY (acute kidney injury) CREATINE RISE S/P RENAL TRANPLANT Referral ID Status Reason Start Date Expiration Date Visits Re quested Visits Authorized [id number] 1 1 Encounter Details Date Type Department Care Team (Latest Contact Info) Description 11/27/2015 11:39 AM EDT - 11/28/2015 2:18 PM EDT Hospital Encounter 4 [place] [address] Madhu Eagle MD [facility] [place] [address] Discharge Disposition: Home Social History Tobacco Use [...] 9:30 AM LAB, [facility] 12/11/2015 10:30 AM Madhu Eagle [...] Department anytime (day, night, weekend, holiday) at [phone] . After hours, please follow the instructions on the message. You can also reach the retail coordinator after hours by calling (ask for the retail coordinator on-call). General Instructions None Provider Contact Information: [phone] Signed: JOANIE DANG MD 11/28/2015 I reviewed [...] the message. You can also reach the retail coordinator after hours by calling (ask for the retail coordinator on-call). documented in this encounter Medications [...] team. No discharge needs identified atthis time. Catering Coordinator remains available as needed for coordination of [...] leave and reported that they would call retail coordinator with questions.Follow up appointments and care of PICC site reviewed with patient and who report understanding. Patient left with staff to meet with at [facility]. * Ran Clement RN - 11/28/2015 8:16 [...] Dang MD - 11/27/2015 11:55 AM EDT [facility] Department of Transplant Surgery Inpatient Admission [...] EXTREMITY performed by Que Amaro MD at [facility] MAIN OR ??? Pro transplantation of kidney N/A 09/16/2015 @KIDNEY TRANSPLANT, WITHOUT RECIPIENT NEPHRECTOMY performed by Franko Larkin MD at [facility] MAIN OR ??? Pro transplant, prep cadaver renal graft N/A 09/16/2015 @PREPARATION CADAVERIC RENAL ALLOGRAFT performed by Franko Larkin MD at [facility] MAIN OR ??? N/A 09/16/2015 ORGAN ACQUISITION RENAL, CADAVERIC performed by Franko Larkin MD at [facility] MAIN OR ALL: No Known Allergies [...] Negative mcL Appearance UA Clear Clear Spec [place] UA 1.006 1.002 - 1.030 Color UA [...] EST TH Visit (TeleHealth) Cardiology at [address] [address] Byron Brown MD [facility] [place] [address] 07/14/2024 10:00 AM EST Hospital Encounter [place] [id number] Arrived documented as of this encounter Procedures [...] Tube HOLD (11/28/2015 7:58 AM EDT) Pathologist Mar Green Hold Sample in lab. [facility] Blood specimen (specimen) Venous Draw / Unknown 11/28/2015 7:58 AM EDT 11/28/2015 7:59 AM EDT Madhu Eagel MD CHEMISTRY ORDERAB LES [facility] [place] [address] * (ABNORMAL) Differential, Automated (11/28/2015 7:58 AM EDT) Pathologist Mar Neutrophil % 65.7 % [facility] Neutrophil Absolute 3.39 1.50 - 6.30 x10(3)/ L [facility] Lymph % 21.7 % [facility] Lymphocytes Abs 1.1 1.0 - 3.6 x10(3)/ L [facility] Monocyte % 5.6 % [facility] Monocyte Abs 0.3 0.2 - 1.0 x10(3)/[facility] Eos % 3.3 % [facility] Eosinophils Abs 0.2 0.0 - 0.5 x10(3)/[facility] Basophil % 2.3 % [facility] Baso Absolute 0.1 0.0 - 0.2 x10(3)/[facility] Immature Gran % 1.40 % [facility] Comment: Immature granulocytes(IG's)percentage and absolute count will include metamyelocytes, myelocytes, and promyelocytes. Blood smears from CBCs yielding IG's will be scanned manually for concordance. If this scan disagrees with the automated IG or if promyelocytes are noted, a manual differential will be performed. Immature Gran Absolute 0.07(H) 0.00 - 0.05 x10(3)/[facility] Blood specimen (specimen) 11/28/2015 7:58 AM EDT 11/28/2015 7:58 AM EDT Narrative Resulting Agency Comment Spec In Lab Madhu Eagle MD HEMATOLOGY ORDERA BLES [facility] [place] [address] * (ABNORMAL) Hemogram (11/28/2015 7:58 AM EDT) White Blood Cell 5.2 4.0 - 10.0 x10(3)/ L [facility] Red Blood Cell 3.96(L) 4.63 - 6.08 x10(6)/[facility] Hemoglobin 12.6(L) 13.7 - 17.5 gm/dL [facility] Hematocrit 36.4(L) 40.0 - 51.0 % [facility] Mean Cell Volume 91.9 79.0 - 92.0 fL [facility] Mean Cell Hemoglobin 31.8 25.6 - 32.2 pg [facility] Mean Cell Hemoglobin Concentration 34.6 32.0 - 36.5 gm/dL [facility] Platelet 307 145 - 370 x10(3)/mc L [facility] RDW Standard Deviation 48.7(H) 35.0 - 46.0 fL [facility] RDW coefficient of variation 14.4 10.9 - 14.4 % [facility] Mean Platelet Volume 9.2 9.0 - 12.0 fL [facility] Blood specimen (specimen) 11/28/2015 7:58 AM EDT 11/28/2015 7:58 AM EDT Narrative Resulting Agency Comment Spec In Lab Madhu Eagle MD HEMATOLOGY ORDERA BLES Performing Organization Address City/[facility]/ZIP Co de Phone Number [facility] [place] [address] * Tacrolimus level (11/28/2015 7:58 AM EDT) Tacrolimus 5.2 ng/mL [facility] Comment:Trough therapeutic: 5-15 ng/mL Blood specimen (specimen) 11/28/2015 7:58 AM EDT 11/28/2015 9:09 AM EDT Narrative Resulting Agency Comment Spec In Lab Madhu Eagle MD CHEMISTRY ORDERAB LES Performing Organization Address City/[facility]/ZIP Co de Phone Number [facility] [place] [address] * Phosphorus (11/28/2015 7:58 AM EDT) Phosphorus 3.4 2.5 - 4.5 mg/dL [facility] Blood specimen (specimen) 11/28/2015 7:58 AM EDT 11/28/2015 7:58 AM EDT Narrative Resulting Agency Comment Spec In Lab Madhu Eagle MD CHEMISTRY ORDERAB LES Performing Organization Address [facility] Co de Phone Number [facility] [place] [address] * (ABNORMAL) Magnesium (11/28/2015 7:58 AM EDT) Magnesium 0.54(L) 0.69 - 1.07 mmol/L [facility] Blood specimen (specimen) 11/28/2015 7:58 AM EDT 11/28/2015 7:58 AM EDT Narrative Resulting Agency Comment Spec In Lab Madhu Eagle MD CHEMISTRY ORDERAB LES Performing Organization Address [facility] Co de Phone Number [facility] [place] [address] * (ABNORMAL) Basic Metabolic Panel (non-fasting) (11/28/2015 7:58 AM EDT) Glucose 149 65 - 199 mg/dL [facility] Comment:Diabetes: >=200 mg/d L plus symptoms Blood Urea Nitrogen 26(H) 10 - 20 mg/dL [facility] Creatinine 2.30(H) 0.80 - 1.50 mg/dL [facility] Comment: Please note that the pediatric reference intervals supplied above were not validated at [facility]. Results from pediatric patients should be interpreted in conjunction to the patient's age, height and muscle mass. Sodium 145 135 - 145 mmol/L [facility] Potassium 4.1 3.5 - 5.0 mmol/L [facility] Comment: Please note: ??Patients with WBC >100,000 may have falsely elevated Potassium levels. ??For accurate Potassium quantification in these patients send serum separator tube (gold top) for subsequent determinations. ??Contact the Clinical Chemistry Laboratory if there are any questions. Chloride 108(H) 98 - 107 mmol/L [facility] Carbon Dioxide 22 22 - 31 mmol/L [facility] Anion Gap 15 5 - 15 mmol/L [facility] Calcium 9.3 8.5 - 10.5 mg/dL [facility] Est Glomerular Filtration Rate 28(L) >=60 [facility] Comment: This [...] the following links into your internet browser. [email or web address] Blood specimen (specimen) 11/28/2015 7:58 AM EDT 11/28/2015 7:58 AM EDT Narrative Resulting Agency Comment Spec In Lab Madhu Eagle MD CHEMISTRY ORDERAB LES [facility] [place] [address] * XR Chest Pa or AP- 1 [...] 05:46 pm) Patient Info ID #: ? [id number] ? : [birth year] (65 yrs) Name: ? ETHEL AKINS ? Visit Date:11/27/2015 02:26 pm Performed By Performed By: ? Osmar Dowd RDMS Attending: ?Kerry GERBER, Jolly Toth Associate: ?Stefan GERBER, Enrique Hansen Referred By: ?MADHU EAGLE MD Service(s) Provided ??URTPL - Ultrasound Renal Transplant - Left - [id number] Indications ??s/p renal transplant now with RAY [...] Final 11/27/2015 05:46pm) Patient Info ID #: [id number] : [birth year] (65 yrs) Name: ETHEL AKINS Visit Date:11/27/2015 02:26 pm Performed By Performed By: Osmar Dowd RDMS Attending: Jolly Payne MD Associate: Enrique Aviles MD Referred By: MADHU EAGLE MD Service(s) Provided URTPL - Ultrasound Renal Transplant - Left - [id number] Indications s/p renal transplant now with RAY [...] Report 11/27/2015 05:46 pm Madhu Eagle MD [facility] GEN ORDERA BLES documented in [...] hours to keep patient net even). call manager program management intern will also be checking to try to [...] 900 mg, Oral, DAILY, First dose on 11/27/15 at 1500, Until Discontinued, Routine, Indication for [...] at 120 mL/hr, ONCE, 1 dose, On e 11/27/15 at 1500, Routine, Indication for (Active or [...] 75 mcg, Oral, DAILY, First dose on 11/27/15 at 1500, Until Discontinued, Routine 1500 (Not [...] hours to keep patient net even). call manager program management intern will also be checking to try to [...] took this AM) 0840 (Given - Provider: Mragarette Mota, JADEN) Continuous Medication Order 11/26/2015 11/27/2015 [...] first. documented in this encounter Care Teams Spoon Maker Relationship Specialty Start Date End Date [place] Denis DO [address] [place] [address] PCP - General 09/03/12 03/17/22 Ruchi Valles RN Nurse Clinic Transplant Surgery 07/30/15 documented as of this encounter
--- OUTSIDE RECORDS SUMMARY | 2024-05-16 17:36 | XMS_ITS | Encounter Summary ---
Author Organization [facility] Address [facility] [place] [address] Care Team Providers Care Public Events Facilities Rental Manager Name Role Phone Adeel Urbano KIRBY Primary Care Provider [phone] Reason for Visit * Reason Comments Immunotherapy Post Hospital Discharge Encounter Details Date Type Department Care Team (Late st Contact Info) Description 11/21/2015 10:30 AM EDT Office Visit Solid [place] [address] Tal Eagle MD [facility] [place] [address] Kidney replaced by transplant; Aftercare following organ [...] Eagle MD - 12/03/2015 1:59 PM EDT [facility] Transplant Nephrology Follow Up Date:?? Patient:?? [...] for diabetics, every 5 for non diabetics [place] kidney ultrasound looking for renal cell CA, [...] UA Latest Ref Range: Clear Clear Spec [place] UA Latest Ref Range: 1.002 - 1.030 [...] EST TH Visit (TeleHealth) Cardiology at [address] [phone] Byron Brown MD [facility] [place] [address] 07/14/2024 10:00 AM EST Hospital Encounter Non-Invasive [place] [phone] Arrived documented as of this encounter Procedures [...] Blood Cells (11/21/2015 10:00 AM EDT) Pathologist [facility] NRBC% auto 0.0 % [facility] NRBC Absolute 0.000 0.000 - 0.012 x10(3)/mcL [facility] Blood specimen (specimen) 11/21/2015 10:00 AM EDT 11/21/2015 11:07 AM EDT Narrative Resulting Agency Comment Spec In Lab Tal Eagle MD HEMATOLOGY ORDERA BLES [facility] [place] [address] * Scan, Peripheral Blood (11/21/2015 10:00 AM EDT) Plat estimate Increased [facility] RBC Morphology Normal [facility] Plat, Giant Less than 1 /HPF [facility] Blood specimen (specimen) 11/21/2015 10:00 AM EDT 11/21/2015 11:07 AM EDT Narrative Resulting Agency Comment Spec In Lab Tal Eagle MD HEMATOLOGY ORDERA BLES Performing Organization Address [facility]/[place] [address] * Green Tube HOLD (11/21/2015 10:00 AM EDT) Green Hold Sample in lab. [facility] Blood specimen (specimen) Venous Draw / Unknown 11/21/2015 10:00 AM EDT 11/21/2015 11:08 AM EDT Tal Eagle MD CHEMISTRY ORDERAB LES Performing Organization Address [facility] Co de Phone Number [facility] [place] [address] * (ABNORMAL) Differential, Automated (11/21/2015 10:00 AM EDT) Neutrophil % 65.5 % [facility] Neutrophil Absolute 4.80 1.50 - 6.30 x10(3)/mc L [facility] Lymph % 16.6 % [facility] Lymphocytes Abs 1.2 1.0 - 3.6 x10(3)/mc L [facility] Monocyte % 6.9 % [facility] Monocyte Abs 0.5 0.2 - 1.0 x10(3)/mc L [facility] Eos % 2.0 % [facility] Eosinophils Abs 0.2 0.0 - 0.5 x10(3)/mc L [facility] Basophil % 0.8 % [facility] Baso Absolute 0.1 0.0 - 0.2 x10(3)/mc L [facility] Immature Gran % 8.20 % [facility] Comment: Immature granulocytes(IG's)percentage and absolute count will include metamyelocytes, myelocytes, and promyelocytes. Blood smears from CBCs yielding IG's will be scanned manually for concordance. If this scan disagrees with the automated IG or if promyelocytes are noted, a manual differential will be performed. Immature Gran Absolute 0.60(H) 0.00 - 0.05 x10(3)/ L [facility] Blood specimen (specimen) 11/21/2015 10:00 AM EDT 11/21/2015 11:07 AM EDT Narrative Resulting Agency Comment Spec In Lab Tal Eagle MD HEMATOLOGY ORDERA BLES [facility] [place] [address] * (ABNORMAL) Hemogram (11/21/2015 10:00 AM EDT) White Blood Cell 7.3 4.0 - 10.0 x10(3)/ L [facility] Red Blood Cell 4.25(L) 4.63 - 6.08 x10(6)/mc L [facility] Hemoglobin 13.5(L) 13.7 - 17.5 gm/dL [facility] Hematocrit 39.2(L) 40.0 - 51.0 % [facility] Mean Cell Volume 92.2(H) 79.0 - 92.0 fL [facility] Mean Cell Hemoglobin 31.8 25.6 - 32.2 pg [facility] Mean Cell Hemoglobin Concentration 34.4 32.0 - 36.5 gm/dL [facility] Platelet 414(H) 145 - 370 x10(3)/mc L [facility] RDW Standard Deviation 46.2(H) 35.0 - 46.0 fL [facility] RDW coefficient of variation 13.9 10.9 - 14.4 % [facility] Mean Platelet Volume 9.6 9.0 - 12.0 fL [facility] Blood specimen (specimen) 11/21/2015 10:00 AM EDT 11/21/2015 11:07 AM EDT Narrative Resulting Agency Comment Spec In Lab Tal Eagle MD HEMATOLOGY ORDERA BLES [facility] [place] [address] * Urinalysis with reflex Culture (11/21/2015 10:00 [...] LABORATORY Leukocytes, Urine Dipstick Negative Negative [facility] Appearance, Urine Dipstick Clear Clear [facility] Specific [place]ston Urine Automated 1.008 1.002 - 1.030 [facility] Color, Urine Dipstick Yellow Yellow [facility] RBC, Urine 1 0 - 3 /HPF [facility] WBC, Urine 3 0 - 3 /HPF [facility] Reflex to Culture No [facility] Urine specimen obtained by clean catch procedure (specimen) 11/21/2015 10:00 AM EDT 11/21/2015 10:59 AM EDT Narrative Resulting Agency Comment Spec In Lab Tal Eagle MD URINE ORDERABLES Performing Organization Address City/[facility]/ZIP Co de Phone Number [facility] [place] [address] * (ABNORMAL) Uric acid (11/21/2015 10:00 AM EDT) Uric Acid 10.2(H) 3.5 - 8.5 mg/dL [facility] Blood specimen (specimen) 11/21/2015 10:00 AM EDT 11/21/2015 11:07 AM EDT Narrative Resulting Agency Comment Spec In Lab Tal Eagle MD CHEMISTRY ORDERAB LES Performing Organization Address [facility] Co de Phone Number [facility] [place] [address] * Tacrolimus level (11/21/2015 10:00 AM EDT) Tacrolimus 12.0 ng/mL [facility] Comment:Trough therapeutic: 5-15 ng/mL Blood specimen (specimen) 11/21/2015 10:00 AM EDT 11/21/2015 1:49 PM EDT Narrative Resulting Agency Comment Spec In Lab Tal Eagle MD CHEMISTRY ORDERAB LES Performing Organization Address City/[facility] Co de Phone Number [facility] [place] [address] * Reticulocyte Count (11/21/2015 10:00 AM EDT) Reticulocyte % 2.2 0.5 - 2.4 % [facility] Retic Abs # 0.090 0.027 - 0.095 x10(6)/mcL [facility] Immature Retic% 2.3 2.3 - 15.9 % [facility] Reticulated Hgb 36.8 28.5 - 38.9 pg [facility] Immature Plt % 1.0 0.0 - 7.4 % [facility] Blood specimen (specimen) 11/21/2015 10:00 AM EDT 11/21/2015 11:07 AM EDT Narrative Resulting Agency Comment Spec In Lab Tal Eagle MD HEMATOLOGY ORDERA BLES Performing Organization Address City/[facility]/ZIP Co de Phone Number [facility] [place] [address] * Protein/Creatinine Ratio, urine (11/21/2015 10:00 AM EDT) Creatinine, Urine 73 mg/dL [facility] Protein, Urine <6 0 - 12 mg/dL [facility] Protein / Creatinine Ratio, Urine <0.1 ratio [facility] Urine specimen (specimen) 11/21/2015 10:00 AM EDT 11/21/2015 10:59 AM EDT Narrative Resulting Agency Comment Spec In Lab Tal Eagle MD URINE ORDERABLES Performing Organization Address City/[facility]/ZIP Co de Phone Number [facility] [place] [address] * Phosphorus (11/21/2015 10:00 AM EDT) Phosphorus 2.8 2.5 - 4.5 mg/dL [facility] Blood specimen (specimen) 11/21/2015 10:00 AM EDT 11/21/2015 11:07 AM EDT Narrative Resulting Agency Comment Spec In Lab Tal Eagle MD CHEMISTRY ORDERAB LES Performing Organization Address City/[facility]/ZIP Co de Phone Number [facility] [place] [address] * (ABNORMAL) Magnesium (11/21/2015 10:00 AM EDT) Magnesium 0.60(L) 0.69 - 1.07 mmol/L [facility] Blood specimen (specimen) 11/21/2015 10:00 AM EDT 11/21/2015 11:07 AM EDT Narrative Resulting Agency Comment Spec In Lab Tal Eagle MD CHEMISTRY ORDERAB LES [facility] [place] [address] * (ABNORMAL) Comprehensive metabolic panel (non-fasting) (11/21/2015 10:00 AM EDT) Glucose 163 65 - 199 mg/dL [facility] Comment:Diabetes: >=200 mg/d L plus symptoms Blood Urea Nitrogen 26(H) 10 - 20 mg/dL [facility] Creatinine 2.33(H) 0.80 - 1.50 mg/dL [facility] Comment: Please note that the pediatric reference intervals supplied above were not validated at [facility]. Results from pediatric patients should be interpreted in conjunction to the patient's age, height and muscle mass. Sodium 139 135 - 145 mmol/L [facility] Potassium 4.7 3.5 - 5.0 mmol/L [facility] Comment: Please note: ??Patients with WBC >100,000 may have falsely elevated Potassium levels. ??For accurate Potassium quantification in these patients send serum separator tube (gold top) for subsequent determinations. ??Contact the Clinical Chemistry Laboratory if there are any questions. Chloride 102 98 - 107 mmol/L [facility] Carbon Dioxide 20(L) 22 - 31 mmol/L [facility] Anion Gap 17(H) 5 - 15 mmol/L [facility] Calcium 9.2 8.5 - 10.5 mg/dL [facility] Protein, Total 7.4 6.1 - 8.0 gm/dL [facility] Albumin 4.0 3.2 - 5.2 gm/dL [facility] Aspartate Aminotransferase 36 0 - 39 unit/L [facility] Alanine Aminotransferase 54 0 - 55 unit/L [facility] Alkaline Phosphatase 74 40 - 120 unit/L [facility] [...] the following links into your internet browser. [email or web address] Blood specimen (specimen) 11/21/2015 10:00 AM EDT 11/21/2015 11:07 AM EDT Narrative Resulting Agency Comment Spec In Lab Tal Eagle MD CHEMISTRY ORDERAB LES [facility] [place] [phone] documented in this encounter Visit Diagnoses Diagnosis Kidney replaced by transplant Aftercare following organ transplant Enterococcal sepsis Streptococcal septicemia Prophylactic immunotherapy Need for prophylactic immunotherapy Chronic hepatitis C without hepatic coma documented in this encounter Care Teams Public Events Facilities Rental Manager Relationship Specialty Start Date End Date Urbano Denis DO [address] [place] [address] PCP - General 09/03/12 03/17/22 Ruchi Valles RN Nurse Clinic Transplant Surgery 07/30/15 documented as of this encounter
--- OUTSIDE RECORDS SUMMARY | 2024-05-16 17:36 | XMS_ITS | Encounter Summary ---
Author Organization [facility] [place] [address] Care Team Providers Care 6Th Grade Teacher Name Role Phone Urbano Denis DO Primary Care Provider [phone] Reason for Visit * Auth/Cert Specialty Diagnoses / Procedures Referred By Humberto t Referred To Contact Diagnoses RAY (acute kidney injury) CREATINE RISE S/P RENAL TRANPLANT Referral ID Status Reason Start Date Expiration Date Visits Re quested Visits Authorized [id number] 1 1 Encounter Details Date Type Department Care Team (Late st Contact Info) Description 11/27/2015 10:00 AM EDT Office Visit [place] [address] Jennifer Amaro MD [facility] [place] [address] H/O kidney transplant Social History Tobacco Use [...] Bell, RD - 11/27/2015 1:37 PM EDT [facility] Post Transplant Nutrition Follow Up Date: 11/27/2015 Patient: Cody Bolden Transplant Date: 09/16/15 [place] organ UNOS diagnosis: Transplant: Mr. Cody Bolden [...] Value Date CHLPL 152 11/27/2015 Assessment: This gag writer reviewed patient's blood chemistries with him. [...] EXTREMITY performed by Jennifer Amaro MD at [facility] OR ??? Pro transplantation of kidney N/A 09/16/2015 @KIDNEY TRANSPLANT, WITHOUT RECIPIENT NEPHRECTOMY performed by Franko Larkin MD at [facility] OR ??? Pro transplant, prep cadaver renal graft N/A 09/16/2015 @PREPARATION CADAVERIC RENAL ALLOGRAFT performed by Franko Larkin MD at [facility] OR ??? N/A 09/16/2015 ORGAN ACQUISITION RENAL, CADAVERIC performed by Franko Larkin MD at [facility] OR Family History: No family history on [...] 12:45p Total infusion: 2,000cc Samia Escalante RN [facility] Solid Organ Transplant [phone] (Pager: [phone]) documented in this encounter Plan of Treatment Upcoming Encounters Date Type Department Care Team (Late st Contact Info) Description 06/22/2024 11:00 AM EST TH Visit (TeleHealth) Cardiology at [address] [phone] Byron Brown MD [facility] [place] [address] 07/14/2024 10:00 AM EST Hospital Encounter Non-[place] [phone] Arrived documented as of this encounter Procedures [...] AM EDT) BKV Blood Result Not Detected [facility] DNA isolated from plasma was performed using Peerby BKV (ASR) reagents and the [employer] 7500 FAST Real-Time PCR System. In addition, the ??PCR product sequence is confirmed using physical properties (melting curve analysis). This test was developed and its performance determined by the [facility] Molecular Pathology Laboratory. It [...] testing. [facility] Comment: [VERIFIED DATE]11.28.15 Verified By:Nella Evans (Electronic Signature) Blood specimen (specimen) 11/27/2015 9:30 AM EDT 11/27/2015 1:04 PM EDT Narrative Resulting Agency Comment Spec In Lab Jennifer Amaro MD HEMATOLOGY ORD MILAGROS Performing Organization Address [facility] Co de Phone Number [facility] [place] [place] [address] * Green Tube HOLD (11/27/2015 9:30 AM EDT) Green Hold Sample in lab. [facility] Blood specimen (specimen) Venous Draw / Unknown 11/27/2015 9:30 AM EDT 11/27/2015 9:50 AM EDT Jennifer Amaro MD CHEMISTRY ORDTiny JENNINGS Performing Organization Address [facility]/ZIP Co de Phone Number [facility] [place] [address] * (ABNORMAL) Differential, Automated (11/27/2015 9:30 AM EDT) Neutrophil % 70.3 % [facility] Neutrophil Absolute 4.59 1.50 - 6.30 x10(3)/[facility] Lymph % 20.0 % [facility] Lymphocytes Abs 1.3 1.0 - 3.6 x10(3)/[facility] LABOR[facility]ORY Monocyte % 4.0 % [facility] Monocyte Abs 0.3 0.2 - 1.0 x10(3)/[facility] LABOR[facility] Eos % 2.4 % [facility] Eosinophils Abs 0.2 0.0 - 0.5 x10(3)/[facility] LAB[facility] Basophil % 1.2 % [facility] Baso Absolute 0.1 0.0 - 0.2 x10(3)/[facility] LABOR[facility]ORY Immature Gran % 2.10 % [facility] Comment: Immature granulocytes(IG's)percentage and absolute count will include metamyelocytes, myelocytes, and promyelocytes. Blood smears from CBCs yielding IG's will be scanned manually for concordance. If this scan disagrees with the automated IG or if promyelocytes are noted, a manual differential will be performed. Immature Gran Absolute 0.14(H) 0.00 - 0.05 x10(3)/[facility] Blood specimen (specimen) 11/27/2015 9:30 AM EDT 11/27/2015 9:46 AM EDT Narrative Resulting Agency Comment Spec In Lab Jennifer Amaro MD HEMATOLOGY ORD ERABLES [facility] [place] [place] [address] * (ABNORMAL) Hemogram (11/27/2015 9:30 AM EDT) White Blood Cell 6.5 4.0 - 10.0 x10(3)/[facility] Red Blood Cell 4.12(L) 4.63 - 6.08 x10(6)/mc L [facility] Hemoglobin 13.3(L) 13.7 - 17.5 gm/dL [facility] Hematocrit 37.9(L) 40.0 - 51.0 % [facility] Mean Cell Volume 92.0 79.0 - 92.0 fL [facility] Mean Cell Hemoglobin 32.3(H) 25.6 - 32.2 pg [facility] Mean Cell Hemoglobin Concentration 35.1 32.0 - 36.5 gm/dL [facility] Platelet 349 145 - 370 x10(3)/mc L [facility] RDW Standard Deviation 48.3(H) 35.0 - 46.0 fL [facility] RDW coefficient of variation 14.4 10.9 - 14.4 % [facility] Mean Platelet Volume 9.1 9.0 - 12.0 fL [facility] Blood specimen (specimen) 11/27/2015 9:30 AM EDT 11/27/2015 9:46 AM EDT Narrative Resulting Agency Comment Spec In Lab Jennifer Amaro MD HEMATOLOGY ORD ERABLES Performing Organization Address City/[facility]/ZIP Co de Phone Number [facility] [place] [address] * Tacrolimus level (11/27/2015 9:30 AM EDT) Tacrolimus 7.2 ng/mL [facility] Comment:Trough therapeutic: 5-15 ng/mL Blood specimen (specimen) 11/27/2015 9:30 AM EDT 11/27/2015 10:56 AM EDT Narrative Resulting Agency Comment Spec In Lab Jennifer Amaro MD CHEMISTRY ORDE DICK Performing Organization Address City/[facility]/ZIP Co de Phone Number [facility] [place] [address] * Urinalysis with reflex Culture (11/27/2015 9:30 [...] [facility] pH, Urn (dipstick) 5.0 5.0 - 8.0 [facility] Blood, Urine Dipstick Negative Negative mg/dL [facility] Ketone, Urine Dipstick Negative Negative mg/dL [facility] Nitrite, Urine Dipstick Negative Negative [facility] Leukocytes, Urine Dipstick Negative Negative [facility] Appearance, Urine Dipstick Clear Clear [facility] Specific Ethel Urine Automated 1.006 1.002 - 1.030 [facility] Color, Urine Dipstick Straw Yellow [facility] RBC, Urine 1 0 - 3 /HPF [facility] WBC, Urine 1 0 - 3 /HPF [facility] Reflex to Culture No [facility] Urine specimen obtained by clean catch procedure (specimen) 11/27/2015 9:30 AM EDT 11/27/2015 9:46 AM EDT Narrative Resulting Agency Comment Spec In Lab Jeninfer Amaro MD URINE ORDERABL ES [facility] [place] [address] * (ABNORMAL) Reticulocyte Count (11/27/2015 9:30 AM EDT) Reticulocyte % 1.5 0.5 - 2.4 % [facility] Retic Abs # 0.060 0.027 - 0.095 x10(6)/mcL [facility] Immature Retic% 2.2(L) 2.3 - 15.9 % [facility] Reticulated Hgb 33.1 28.5 - 38.9 pg [facility] Immature Plt % 1.1 0.0 - 7.4 % [facility] Blood specimen (specimen) 11/27/2015 9:30 AM EDT 11/27/2015 9:46 AM EDT Narrative Resulting Agency Comment Spec In Lab Jennifer Amaro MD HEMATOLOGY ORD ERABLES Performing Organization Address [facility] Co de Phone Number [facility] [place] [address] * (ABNORMAL) Uric acid (11/27/2015 9:30 AM EDT) Uric Acid 10.4(H) 3.5 - 8.5 mg/dL [facility] Blood specimen (specimen) 11/27/2015 9:30 AM EDT 11/27/2015 9:46 AM EDT Narrative Resulting Agency Comment Spec In Lab Jennifer Amaro MD CHEMISTRY ORDTiny JENNINGS Performing Organization Address [facility] Co de Phone Number [facility] [place] [address] * Phosphorus (11/27/2015 9:30 AM EDT) Phosphorus 3.8 2.5 - 4.5 mg/dL [facility] Blood specimen (specimen) 11/27/2015 9:30 AM EDT 11/27/2015 9:46 AM EDT Narrative Resulting Agency Comment Spec In Lab Jennifer Amaro MD CHEMISTRY ORDTiny JENNINGS Performing Organization Address [facility]/ZIP Co de Phone Number [facility] [place] [address] * (ABNORMAL) Magnesium (11/27/2015 9:30 AM EDT) Pathologist [facility] Magnesium 0.61(L) 0.69 - 1.07 mmol/L [facility] Blood specimen (specimen) 11/27/2015 9:30 AM EDT 11/27/2015 9:46 AM EDT Narrative Resulting Agency Comment Spec In Lab Jennifer Amaro MD CHEMISTRY ROCHELLE JENNINGS [facility] [place] [address] * (ABNORMAL) Comprehensive metabolic panel (non-fasting) (11/27/2015 9:30 AM EDT) Pathologist [facility] Glucose 145 65 - 199 mg/dL [facility] Comment:Diabetes: >=200 mg/d L plus symptoms Blood Urea Nitrogen 37(H) 10 - 20 mg/dL [facility] Creatinine 2.83(H) 0.80 - 1.50 mg/dL [facility] Comment: Please note that the pediatric reference intervals supplied above were not validated at [facility]. Results from pediatric patients should be interpreted in conjunction to the patient's age, height and muscle mass. Sodium 141 135 - 145 mmol/L [facility] Potassium 4.5 3.5 - 5.0 mmol/L [facility] Comment: Please note: ??Patients with WBC >100,000 may have falsely elevated Potassium levels. ??For accurate Potassium quantification in these patients send serum separator tube (gold top) for subsequent determinations. ??Contact the Clinical Chemistry Laboratory if there are any questions. Chloride 104 98 - 107 mmol/L [facility] Carbon Dioxide 20(L) 22 - 31 mmol/L [facility] Anion Gap 17(H) 5 - 15 mmol/L [facility] Calcium 9.5 8.5 - 10.5 mg/dL [facility] Protein, Total 7.4 6.1 - 8.0 gm/dL [facility] Albumin 4.0 3.2 - 5.2 gm/dL [facility] Aspartate Aminotransferase 30 0 - 39 unit/L [facility] Alanine Aminotransferase 28 0 - 55 unit/L [facility] Alkaline Phosphatase 73 40 - 120 unit/L [facility] Bilirubin, Total 0.8 0.2 - 1.3 mg/dL [facility] Bilirubin, Direct 0.2 0.0 - 0.3 mg/dL [facility] Est Glomerular Filtration Rate 22(L) >=60 [facility] Comment: This [...] the following links into your internet browser. [email or web address] Blood specimen (specimen) 11/27/2015 9:30 AM EDT 11/27/2015 9:46 AM EDT Narrative Resulting Agency Comment Spec In Lab Jennifer Amaro MD CHEMISTRY ROCHELLE JENNINGS [facility] Organization Address City/State/ZIP Co de Phone Number [facility] [place] [address] * Cholesterol, total (11/27/2015 9:30 AM EDT) Cholesterol, Total 152 <=199 mg/dL [facility] Comment: Recommendations of the NCEP Adult Treatment Panel for the following risk cutoff thresholds for the [place] population: Desirable: <200 mg/dL Borderline High: 200-239 mg/dL High: > or = 240 mg/dL Blood specimen (specimen) 11/27/2015 9:30 AM EDT 11/27/2015 9:46 AM EDT Narrative Resulting Agency Comment Spec In Lab Jennifer Amaro MD CHEMISTRY ROCHELLE JENNINGS [facility] [place] [address] documented in this encounter Visit Diagnoses Diagnosis H/O kidney transplant Kidney replaced by transplant documented in this encounter Care Teams 6Th Grade Teacher Relationship Specialty Start Date End Date Urbano Denis DO [address] [place] [address] PCP - General 09/03/12 03/17/22 Ruchi Valles RN Nurse Clinic Transplant Surgery 07/30/15 documented as of this encounter
--- OUTSIDE RECORDS SUMMARY | 2024-05-16 17:36 | XMS_ITS | Encounter Summary ---
Author Organization [facility] [place] [address] Care Team Providers Care Turntable Worker Name Role Phone Adeel Urbano KIRBY Primary Care Provider [phone] Reason for Visit * Reason Comments Kidney Transplant Follow-up Immunotherapy * Auth/Cert Specialty Diagnoses / Procedures Referred By Humberto flor Referred To Contact Diagnoses UTI (urinary tract infection) RECURRENT UTI/KIDNEY TX 09/2015 Referral ID Status Reason Start Date Expiration Date Visits Re quested Visits Authorized [id number] 1 1 Encounter Details Date Type Department Care Team (Latest Contact Info) Description 12/04/2015 9:00 AM EDT Office Visit [place] [address] Tal Eagle MD [facility] [place] [address] Kidney replaced by transplant; RAY (acute kidney [...] Bell, RD - 12/05/2015 11:31 AM EDT [facility] Post Transplant Nutrition Follow Up Date: 12/05/2015 Patient: Ethel Akins Transplant Date: 09/16/15 [place] organ UNOS diagnosis: Transplant: Mr. Ethel Akins [...] Value Date CHLPL 154 12/04/2015 Assessment: This blurb writer provided patient with a copy of [...] Eagle MD - 12/04/2015 9:39 AM EDT [facility] Transplant Nephrology Follow Up Ethel Akins [id number] Transplant ID: Date:?? 12/04/2015 Patient:?? Ethel [...] UA Latest Ref Range: Clear Clear Spec [place]ley UA Latest Ref Range: 1.002 - 1.030 [...] Shagufta Villasenor MD Nephrology fellow Pager # [phone] I reviewed all of the above findings and assessment of Dr. Villasenor, examined the patient and formulated the recommendations which accurately reflect mine. documented in this encounter Plan of Treatment Upcoming Encounters Date Type Department Care Team (Late st Contact Info) Description 06/22/2024 11:00 AM EST Visit (TeleHealth) Cardiology at [address] [phone] Byron Brown MD [facility] [place] [address] 07/14/2024 10:00 AM EST Hospital Encounter Non-Invasive [place] [phone] Arrived documented as of this encounter Results * (ABNORMAL) Comprehensive metabolic panel (non-fasting) (12/04/2015 8:34 AM EDT) Glucose 149 65 - 199 mg/dL [facility] Comment:Diabetes: >=200 mg/d L plus symptoms Blood Urea Nitrogen 37(H) 10 - 20 mg/dL [facility] Creatinine 3.10(H) 0.80 - 1.50 mg/dL [facility] Comment: Please note that the pediatric reference intervals supplied above were not validated at [facility]. Results from pediatric patients should be interpreted in conjunction to the patient's age, height and muscle mass. Sodium 141 135 - 145 mmol/L [facility] Potassium 5.0 3.5 - 5.0 mmol/L [facility] [...] mmol/L [facility] Anion Gap 18(H) 5 - 15 mmol/L [facility] Calcium 9.6 8.5 - 10.5 mg/dL [facility] Protein, Total 7.5 6.1 - 8.0 gm/dL [facility] Albumin 4.4 3.2 - 5.2 gm/dL [facility] Aspartate Aminotransferase 36 0 - 39 unit/L [facility] Alanine Aminotransferase 33 0 - 55 unit/L [facility] Alkaline Phosphatase 69 40 - 120 unit/L [facility] Bilirubin, Total 1.2 0.2 - 1.3 mg/dL [facility] Bilirubin, Direct 0.2 0.0 - 0.3 mg/dL [facility] Est Glomerular Filtration Rate 20(L) >=60 [facility] Comment: This [...] the following links into your internet browser. [email or web address] Blood specimen (specimen) 12/04/2015 8:34 AM EDT 12/04/2015 8:42 AM EDT Narrative Resulting Agency Comment Spec In Lab Tal Eagle MD CHEMISTRY ORDERAB LES Performing Organization Address City/[facility]/ZIP Co de Phone Number [facility] [address] * (ABNORMAL) Magnesium (12/04/2015 8:34 AM EDT) Magnesium 0.65(L) 0.69 - 1.07 mmol/L [facility] Blood specimen (specimen) 12/04/2015 8:34 AM EDT 12/04/2015 8:42 AM EDT Narrative Resulting Agency Comment Spec In Lab Tal Eagle MD CHEMISTRY ORDERAB LES Performing Organization Address [facility] Co de Phone Number [facility] [place] [address] * Phosphorus (12/04/2015 8:34 AM EDT) Phosphorus 3.9 2.5 - 4.5 mg/dL [facility] Blood specimen (specimen) 12/04/2015 8:34 AM EDT 12/04/2015 8:42 AM EDT Narrative Resulting Agency Comment Spec In Lab Tal Eagle MD CHEMISTRY ORDERAB LES Performing Organization Address [facility] Co de Phone Number [facility] [place] [address] * (ABNORMAL) Uric acid (12/04/2015 8:34 AM EDT) Uric Acid 11.8(H) 3.5 - 8.5 mg/dL [facility] Blood specimen (specimen) 12/04/2015 8:34 AM EDT 12/04/2015 8:42 AM EDT Narrative Resulting Agency Comment Spec In Lab Tal Eagle MD CHEMISTRY ORDERAB LES Performing Organization Address City/[facility]/ZIP Co de Phone Number [facility] [place] [address] * Tacrolimus level (12/04/2015 8:34 AM EDT) Tacrolimus 6.3 ng/mL [facility] Comment:Trough therapeutic: 5-15 ng/mL Blood specimen (specimen) 12/04/2015 8:34 AM EDT 12/04/2015 10:56 AM EDT Narrative Resulting Agency Comment Spec In Lab Tal Eagle MD CHEMISTRY ORDERAB LES Performing Organization Address City/[facility]/ZIP Co de Phone Number [facility] [address] * Reticulocyte Count (12/04/2015 8:34 AM EDT) [facility] Reticulocyte % 1.4 0.5 - 2.4 % [facility] Retic Abs # 0.060 0.027 - 0.095 x10(6)/mcL [facility] Immature Retic% 4.1 2.3 - 15.9 % [facility] Reticulated Hgb 33.7 28.5 - 38.9 pg [facility] Immature Plt % 1.7 0.0 - 7.4 % [facility] Blood specimen (specimen) 12/04/2015 8:34 AM EDT 12/04/2015 8:42 AM EDT Narrative Resulting Agency Comment Spec In Lab Tal Eagle MD HEMATOLOGY ORDERA BLES [facility] [place] [address] * Cholesterol, total (12/04/2015 8:34 AM EDT) Pathologist [facility] Cholesterol, Total 154 <=199 mg/dL [facility] Comment: Recommendations of the NCEP Adult Treatment Panel for the following risk cutoff thresholds for the [place] population: Desirable: <200 mg/dL Borderline High: 200-239 mg/dL High: > or = 240 mg/dL Blood specimen (specimen) 12/04/2015 8:34 AM EDT 12/04/2015 8:42 AM EDT Narrative Resulting Agency Comment Spec In Lab Tal Eagle MD CHEMISTRY ORDERAB LES Performing Organization Address [facility]/ZIP Co de Phone Number [facility] [place] [address] * Protein/Creatinine Ratio, urine (12/04/2015 8:30 AM EDT) Creatinine, Urine 69 mg/dL [facility] Protein, Urine <6 0 - 12 mg/dL [facility] Protein / Creatinine Ratio, Urine <0.1 ratio [facility] Urine specimen (specimen) 12/04/2015 8:30 AM EDT 12/04/2015 8:44 AM EDT Narrative Resulting Agency Comment Spec In Lab Tal Eagle MD URINE ORDERABLES Performing Organization Address [facility] Co de Phone Number [facility] [place] [address] * (ABNORMAL) Urinalysis with reflex Culture (12/04/2015 [...] LABORATORY Leukocytes, Urine Dipstick Negative Negative [facility] Appearance, Urine Dipstick Clear Clear [facility] Specific [place] Urine Automated 1.008 1.002 - 1.030 [facility] Color, Urine Dipstick Straw Yellow [facility] RBC, Urine 1 0 - 3 /HPF [facility] WBC, Urine 4(H) 0 - 3 /HPF [facility] Bacteria, Urine Rare(A) None /HPF [facility] Squamous Epithelial Cells, Urine <1 <=4 /HPF [facility] Reflex to Culture No [facility] Urine specimen (specimen) 12/04/2015 8:30 AM EDT 12/04/2015 8:42 AM EDT Narrative Resulting Agency Comment Spec In Lab Tal Eagel MD URINE ORDERABLES Performing Organization Address City/State/[facility] Co de Phone Number [facility] [place] [address] documented in this encounter Visit Diagnoses Diagnosis Kidney replaced by transplant RAY (acute kidney injury) Acute kidney failure, unspecified Aftercare following organ transplant Prophylactic immunotherapy Need for prophylactic immunotherapy documented in this encounter Care Teams Turntable Worker Relationship Specialty Start Date End Date Urbano Denis DO [address] [place] [address] PCP - General 09/03/12 03/17/22 Ruchi Valles RN Nurse Clinic Transplant Surgery 07/30/15 documented as of this encounter
--- OUTSIDE RECORDS SUMMARY | 2024-05-16 17:36 | XMS_ITS | Encounter Summary ---
Author Organization [facility] [place] [address] Care Team Providers Care Electrification Adviser Name Role Phone AdeelUrbano toscano Primary Care Provider Encounter Details Date Type Department Care Team (Late st Contact Info) Description 11/27/2015 [facility] Hospital [place] [phone] Joanie Sim MD [facility] [place] [address] ERRONEOUS ENCOUNTER Social History Tobacco Use Types [...] EST TH Visit (TeleHealth) Cardiology at [address] [phone] Byron Brown MD [facility] [place] [address] 07/14/2024 10:00 AM EST Hospital Encounter Non-Invasive [place] [address] Arrived documented as of this encounter Visit Diagnoses Diagnosis DH ERRONEOUS ENCOUNTER documented in this encounter Care Teams Electrification Adviser Relationship Specialty Start Date End Date Urbano Denis DO [address] [place] [address] PCP - General 09/03/12 03/17/22 Ruchi Valles RN Nurse Clinic Transplant Surgery 07/30/15 documented as of this encounter
--- OUTSIDE RECORDS SUMMARY | 2024-05-16 17:36 | XMS_ITS | Encounter Summary ---
Author Organization [facility] [place] [address] Care Team Providers Care Forest Management Professor Name Role Phone Urbano Denis DO Primary Care Provider [phone] Reason for Visit * Auth/Cert Specialty Diagnoses / Procedures Referred By Humberto flor Referred To Contact Diagnoses UTI (urinary tract infection) RECURRENT UTI/KIDNEY [place] 09/2015 Referral ID Status Reason Start Date Expiration Date Visits Re quested Visits Authorized [id number] 1 1 Encounter Details Date Type Department Care Team (Late st Contact Info) Description 12/07/2015 8:30 AM EDT Office Visit [place] [address] Jennifer Amaro MD [facility] [place] [address] Kidney replaced by transplant Social History Tobacco [...] EXTREMITY performed by Jennifer Amaro MD at [facility] MAIN OR ??? Pro transplantation of kidney N/A 09/16/2015 @KIDNEY TRANSPLANT, WITHOUT RECIPIENT NEPHRECTOMY performed by Franko Larkin MD at [facility] OR ??? Pro transplant, prep cadaver renal graft N/A 09/16/2015 @PREPARATION CADAVERIC RENAL ALLOGRAFT performed by Franko Larkin MD at [facility] MAIN OR ??? N/A 09/16/2015 ORGAN ACQUISITION RENAL, CADAVERIC performed by Franko Larkin MD at [facility] OR Family History: No family history [...] 1030 Total infusion: 2L Samia Escalante RN [facility] Solid Organ Transplant [phone] (Pager: [phone]) documented in this encounter Plan of Treatment Upcoming Encounters Date Type Department Care Team (Late st Contact Info) Description 06/22/2024 11:00 AM EST TH Visit (TeleHealth) Cardiology at [address] [phone] Byron Brown MD [facility] [place] [address] 07/14/2024 10:00 AM EST Hospital Encounter Non[place] [phone] Arrived documented as of this encounter Procedures [...] which inactivates penicillins, cephalosporins, and aztreonam. (A) [facility] Organism Klebsiella oxytoca(A) [facility] Urine specimen (specimen) 12/07/2015 10:20 [...] Jennifer Amaro MD MICROBIOLOGY - GENERAL ORDERABLES [facility] [address] * (ABNORMAL) Urinalysis with reflex Culture (12/07/2015 10:20 AM EDT) Glucose, Urine Dipstick Negative Negative mg/dL [facility] Protein, Urine Dipstick Negative Negative mg/dL [facility] Bilirubin, Urine Dipstick Negative Negative mg/dL [facility] Comment: Clinical correlation required for positive Urine Bilirubin results as false positive may occur with some drugs and drug related products. If a false positive is suspected a serum total bilirubin should be considered if clinically indicated. Urobilinogen, Urine Dipstick Normal Normal mg/dL [facility] pH, Urn (dipstick) 6.0 5.0 - 8.0 [facility] Blood, Urine Dipstick Small(A) Negative mg/dL [facility] Ketone, Urine Dipstick Negative Negative mg/dL [facility] Nitrite, Urine Dipstick Negative Negative [facility] Leukocytes, Urine Dipstick Trace(A) Negative [facility] Appearance, Urine Dipstick Clear Clear [facility] Specific [place] Urine Automated 1.005 1.002 - 1.030 [facility] Color, Urine Dipstick Straw Yellow [facility] RBC, Urine 2 0 - 3 /HPF [facility] WBC, Urine 5(H) 0 - 3 /HPF [facility] Bacteria, Urine Moderate(A) None /HPF [facility] Reflex to Culture Yes [facility] Urine specimen (specimen) 12/07/2015 10:20 AM EDT 12/07/2015 10:29 AM EDT Narrative Resulting Agency Comment Spec In Lab Jennifer Amaro MD URINE ORDERABL ES [facility] [address] * (ABNORMAL) Blood culture (12/07/2015 9:12 AM EDT) Blood Culture Klebsiella oxytoca detected by PCR This organism expresses extended spectrum beta-lactamase which inactivates penicillins, cephalosporins, and aztreonam. Isolate saved. If future testing is required, contact the Microbiology Adjunct Psychology Faculty Member. (A) [facility] Gram Stain Bottle Growth detected in aerobic and anaerobic bottles. Gram Negative Rods seen (A) [facility] Organism Klebsiella oxytoca(A) [facility] Organism Gram Negative Rods(A) [facility] Blood specimen (specimen) 12/07/2015 9:12 [...] MICROBIOLOGY - BLOOD ORDERABLES [facility] [address] [place] [address] * (ABNORMAL) Urinalysis with reflex Culture (12/07/2015 [...] mg/dL [facility] pH, Urn (dipstick) 6.0 5.0 - 8.0 [facility] Blood, Urine Dipstick Large(A) Negative mg/dL [facility] Ketone, Urine Dipstick Negative Negative mg/dL [facility] Nitrite, Urine Dipstick Negative Negative [facility] Leukocytes, Urine Dipstick Large(A) Negative [facility] Appearance, Urine Dipstick Hazy(A) Clear [facility] Specific [place] Urine Automated 1.011 1.002 - 1.030 [facility] Color, Urine Dipstick Yellow Yellow [facility] RBC, Urine 38(H) 0 - 3 /HPF [facility] WBC, Urine 56(H) 0 - 3 /HPF [facility] WBC Clumps, Urine Rare(A) None /HPF [facility] Bacteria, Urine Rare(A) None /HPF [facility] Hyaline Casts, Urine 1 0 - 2 /LPF [facility] Reflex to Culture Yes [facility] Urine specimen (specimen) 12/07/2015 8:10 AM EDT 12/07/2015 8:17 AM EDT Narrative Resulting Agency Comment Spec In Lab Jennifer Amaro MD URINE ORDERABL ES Performing Organization Address [facility] Co de Phone Number [facility] [place] [address] * (ABNORMAL) Protein/Creatinine Ratio, urine (12/07/2015 8:09 AM EDT) Creatinine, Urine 97 mg/dL [facility] Protein, Urine 52(H) 0 - 12 mg/dL [facility] Protein / Creatinine Ratio, Urine 0.5 ratio [facility] Urine specimen (specimen) 12/07/2015 8:09 AM EDT 12/07/2015 8:15 AM EDT Narrative Resulting Agency Comment Spec In Lab Jennifer Amaro MD URINE ORDERABL ES Performing Organization Address [facility] Co de Phone Number [facility] [place] [address] * (ABNORMAL) Comprehensive metabolic panel (non-fasting) (12/07/2015 7:55 AM EDT) Glucose 155 65 - 199 mg/dL [facility] Comment:Diabetes: >=200 mg/d L plus symptoms Blood Urea Nitrogen 31(H) 10 - 20 mg/dL [facility] Creatinine 2.98(H) 0.80 - 1.50 mg/dL [facility] Comment: Please note that the pediatric reference intervals supplied above were not validated at [facility]. Results from pediatric patients should be interpreted in conjunction to the patient's age, height and muscle mass. Sodium 139 135 - 145 mmol/L [facility] Potassium 4.6 3.5 - 5.0 mmol/L [facility] [...] 10.5 mg/dL [facility] Protein, Total 8.1(H) 6.1 - 8.0 gm/dL [facility] Albumin 4.5 3.2 - 5.2 gm/dL [facility] Aspartate Aminotransferase 24 0 - 39 unit/L [facility] Alanine Aminotransferase 22 0 - 55 unit/L [facility] Alkaline Phosphatase 76 40 - 120 unit/L [facility] Bilirubin, Total 0.9 0.2 - 1.3 mg/dL [facility] Bilirubin, Direct 0.3 0.0 - 0.3 mg/dL [facility] Est Glomerular Filtration Rate 21(L) >=60 [facility] Comment: This estimated [...] the following links into your internet browser. [email or web address] Blood specimen (specimen) 12/07/2015 7:55 AM EDT 12/07/2015 8:01 AM EDT Narrative Resulting Agency Comment Spec In Lab Jennifer Amaro MD CHEMISTRY ROCHELLE JENNINGS Performing Organization Address [facility] Co de Phone Number [facility] [place] [address] * (ABNORMAL) Magnesium (12/07/2015 7:55 AM EDT) Magnesium 0.65(L) 0.69 - 1.07 mmol/L [facility] Blood specimen (specimen) 12/07/2015 7:55 AM EDT 12/07/2015 8:01 AM EDT Narrative Resulting Agency Comment Spec In Lab Jennifer Amaro MD CHEMISTRY ROCHELLE JENNINGS Performing Organization Address [facility] Co de Phone Number [facility] [place] [address] * Phosphorus (12/07/2015 7:55 AM EDT) Phosphorus 3.0 2.5 - 4.5 mg/dL [facility] Blood specimen (specimen) 12/07/2015 7:55 AM EDT 12/07/2015 8:01 AM EDT Narrative Resulting Agency Comment Spec In Lab Jennifer Amaro MD CHEMISTRY ROCHELLE JENNINGS Performing Organization Address [facility] Co de Phone Number [facility] [place] [address] * (ABNORMAL) Uric acid (12/07/2015 7:55 AM EDT) Uric Acid 11.1(H) 3.5 - 8.5 mg/dL [facility] Blood specimen (specimen) 12/07/2015 7:55 AM EDT 12/07/2015 8:01 AM EDT Narrative Resulting Agency Comment Spec In Lab Jennifer Amaro MD CHEMISTRY ROCHELLE JENNINGS [facility] [place] [address] * Tacrolimus level (12/07/2015 7:55 AM EDT) Tacrolimus 5.6 ng/mL [facility] Comment:Trough therapeutic: 5-15 ng/mL Blood specimen (specimen) 12/07/2015 7:55 AM EDT 12/07/2015 10:52 AM EDT Narrative Resulting Agency Comment Spec In Lab Jennifer Amaro MD CHEMISTRY ROCHELLE JENNINGS Performing Organization Address [facility] Co de Phone Number [facility] [place] [address] * Reticulocyte Count (12/07/2015 7:55 AM EDT) [facility] Reticulocyte % 1.8 0.5 - 2.4 % [facility] Retic Abs # 0.080 0.027 - 0.095 x10(6)/mcL [facility] Immature Retic% 3.8 2.3 - 15.9 % [facility] Reticulated Hgb 34.0 28.5 - 38.9 pg [facility] Immature Plt % 1.2 0.0 - 7.4 % [facility] Blood specimen (specimen) 12/07/2015 7:55 AM EDT 12/07/2015 8:01 AM EDT Narrative Resulting Agency Comment Spec In Lab Jennifer Amaro MD HEMATOLOGY ORD ERABLES Performing Organization Address City/[facility]/ZIP Co de Phone Number [facility] [place] [address] * Cholesterol, total (12/07/2015 7:55 AM EDT) Pathologist [facility] Cholesterol, Total 150 <=199 mg/dL [facility] Comment: Recommendations of the NCEP Adult Treatment Panel for the following risk cutoff thresholds for the [place] population: Desirable: <200 mg/dL Borderline High: 200-239 mg/dL High: > or = 240 mg/dL Blood specimen (specimen) 12/07/2015 7:55 AM EDT 12/07/2015 8:01 AM EDT Narrative Resulting Agency Comment Spec In Lab Jennifer Amaro MD CHEMISTRY ROCHELLE JENNINGS [facility] [place] [address] documented in this encounter Visit Diagnoses Diagnosis Kidney replaced by transplant documented in this encounter Care Teams Forest Management Professor Relationship Specialty Start Date End Date Urbano Denis DO [address] [place] [address] PCP - General 09/03/12 03/17/22 Ruchi Valles RN Nurse Clinic Transplant Surgery 07/30/15 documented as of this encounter
--- OUTSIDE RECORDS SUMMARY | 2024-05-16 17:36 | XMS_ITS | Encounter Summary ---
Author Organization [facility] [place] [address] Care Team Providers Care Dispatch Clerk Name Role Phone Urbano Denis DO Primary Care Provider Reason for Visit * Auth/Cert Specialty Diagnoses / Procedures Referred By Humberto flor Referred To Contact Diagnoses UTI (urinary tract infection) RECURRENT UTI/KIDNEY TX 09/2015 Referral ID Status Reason Start Date Expiration Date Visits Re quested Visits Authorized [id number] 1 1 Encounter Details Date Type Department Care Team (Latest Contact Info) Description 12/04/2015 7:55 AM EDT Laboratory Appointment Lab [address] [place] [phone] Kidney replaced by transplant Social History Tobacco [...] EST TH Visit (TeleHealth) Cardiology at [address] [phone] Byron Brown MD [facility] [address] 07/14/2024 10:00 AM EST Hospital Encounter [place] [address] Arrived documented as of this [...] 8:34 AM EDT) Neutrophil % 69.8 % [facility] Neutrophil Absolute 3.70 1.50 - 6.30 x10(3)/[facility] Lymph % 21.3 % [facility] Lymphocytes Abs 1.1 1.0 - 3.6 x10(3)/[facility] Monocyte % 3.6 % [facility] Monocyte Abs 0.2 0.2 - 1.0 x10(3)/[facility] Eos % 3.0 % [facility] Eosinophils Abs 0.2 0.0 - 0.5 x10(3)/[facility] Basophil % 1.5 % [facility] Baso Absolute 0.1 0.0 - 0.2 x10(3)/[facility] Immature Gran % 0.80 % [facility] Comment: Immature granulocytes(IG's)percentage and absolute count will include metamyelocytes, myelocytes, and promyelocytes. Blood smears from CBCs yielding IG's will be scanned manually for concordance. If this scan disagrees with the automated IG or if promyelocytes are noted, a manual differential will be performed. Immature Gran Absolute 0.04 0.00 - 0.05 x10(3)/[facility] Blood specimen (specimen) 12/04/2015 8:34 AM EDT 12/04/2015 8:42 AM EDT Narrative Resulting Agency Comment Spec In Lab Tal Eagle MD HEMATOLOGY ORDERA BLES [facility] [place] [address] * (ABNORMAL) Hemogram (12/04/2015 8:34 AM EDT) White Blood Cell 5.3 4.0 - 10.0 x10(3)/mc L [facility] Red Blood Cell 4.35(L) 4.63 - 6.08 x10(6)/mc L [facility] Hemoglobin 13.9 13.7 - 17.5 gm/dL [facility] Hematocrit 40.2 40.0 - 51.0 % [facility] Mean Cell Volume 92.4(H) 79.0 - 92.0 fL [facility] Mean Cell Hemoglobin 32.0 25.6 - 32.2 pg [facility] Mean Cell Hemoglobin Concentration 34.6 32.0 - 36.5 gm/dL [facility] Platelet 255 145 - 370 x10(3)/mc L [facility] RDW Standard Deviation 48.0(H) 35.0 - 46.0 fL [facility] RDW coefficient of variation 14.2 10.9 - 14.4 % [facility] Mean Platelet Volume 9.6 9.0 - 12.0 fL [facility] Blood specimen (specimen) 12/04/2015 8:34 AM EDT 12/04/2015 8:42 AM EDT Narrative Resulting Agency Comment Spec In Lab Tal Eagle MD HEMATOLOGY ORDERA BLES Performing Organization Address City/State/[facility] Co de Phone Number [facility] [place] [address] * (ABNORMAL) Comprehensive metabolic panel (non-fasting) (12/04/2015 8:34 AM EDT) Glucose 149 65 - 199 mg/dL [facility] Comment:Diabetes: >=200 mg/d L plus symptoms Blood Urea Nitrogen 37(H) 10 - 20 mg/dL [facility] Creatinine 3.10(H) 0.80 - 1.50 mg/dL [facility] Comment: Please note that the pediatric reference intervals supplied above were not validated at [facility]. Results from pediatric patients should be interpreted in conjunction to the patient's age, height and muscle mass. Sodium 141 135 - 145 mmol/L [facility] Potassium 5.0 3.5 - 5.0 mmol/L [facility] [...] mmol/L [facility] Anion Gap 18(H) 5 - 15 mmol/L [facility] Calcium 9.6 8.5 - 10.5 mg/dL [facility] Protein, Total 7.5 6.1 - 8.0 gm/dL [facility] Albumin 4.4 3.2 - 5.2 gm/dL [facility] Aspartate Aminotransferase 36 0 - 39 unit/L [facility] Alanine Aminotransferase 33 0 - 55 unit/L [facility] Alkaline Phosphatase 69 40 - 120 unit/L [facility] Bilirubin, Total 1.2 0.2 - 1.3 mg/dL [facility] Bilirubin, Direct 0.2 0.0 - 0.3 mg/dL [facility] Est Glomerular Filtration Rate 20(L) >=60 [facility] Comment: This [...] the following links into your internet browser. [email or web address] Blood specimen (specimen) 12/04/2015 8:34 AM EDT 12/04/2015 8:42 AM EDT Narrative Resulting Agency Comment Spec In Lab Tal Eagle MD CHEMISTRY ORDERAB LES [facility] [place] [address] * (ABNORMAL) Magnesium (12/04/2015 8:34 AM EDT) Magnesium 0.65(L) 0.69 - 1.07 mmol/L [facility] Blood specimen (specimen) 12/04/2015 8:34 AM EDT 12/04/2015 8:42 AM EDT Narrative Resulting Agency Comment Spec In Lab Tal Eagle MD CHEMISTRY ORDERAB LES Performing Organization Address City/[facility]/ZIP Co de Phone Number [facility] [place] [address] * Phosphorus (12/04/2015 8:34 AM EDT) Phosphorus 3.9 2.5 - 4.5 mg/dL [facility] Blood specimen (specimen) 12/04/2015 8:34 AM EDT 12/04/2015 8:42 AM EDT Narrative Resulting Agency Comment Spec In Lab Tal Eagle MD CHEMISTRY ORDERAB LES Performing Organization Address City/[facility]/ZIP Co de Phone Number [facility] [place] [address] * (ABNORMAL) Uric acid (12/04/2015 8:34 AM EDT) Uric Acid 11.8(H) 3.5 - 8.5 mg/dL [facility] Blood specimen (specimen) 12/04/2015 8:34 AM EDT 12/04/2015 8:42 AM EDT Narrative Resulting Agency Comment Spec In Lab Tal Eagle MD CHEMISTRY ORDERAB LES Performing Organization Address City/[facility]/ZIP Co de Phone Number [facility] [place] [address] * Tacrolimus level (12/04/2015 8:34 AM EDT) Tacrolimus 6.3 ng/mL [facility] Comment:Trough therapeutic: 5-15 ng/mL Blood specimen (specimen) 12/04/2015 8:34 AM EDT 12/04/2015 10:56 AM EDT Narrative Resulting Agency Comment Spec In Lab Tal Eagle MD CHEMISTRY ORDERAB LES Performing Organization Address [facility] Co de Phone Number [facility] [place] [address] * Reticulocyte Count (12/04/2015 8:34 AM EDT) Reticulocyte % 1.4 0.5 - 2.4 % [facility] Retic Abs # 0.060 0.027 - 0.095 x10(6)/mcL [facility] Immature Retic% 4.1 2.3 - 15.9 % [facility] Reticulated Hgb 33.7 28.5 - 38.9 pg [facility] Immature Plt % 1.7 0.0 - 7.4 % [facility] Blood specimen (specimen) 12/04/2015 8:34 AM EDT 12/04/2015 8:42 AM EDT Narrative Resulting Agency Comment Spec In Lab Tal Eagle MD HEMATOLOGY ORDERA BLES Performing Organization Address [facility] Co de Phone Number [facility] [place] [address] * Cholesterol, total (12/04/2015 8:34 AM EDT) Cholesterol, Total 154 <=199 mg/dL [facility] Comment: Recommendations of the NCEP Adult Treatment Panel for the following risk cutoff thresholds for the [place] population: Desirable: <200 mg/dL Borderline High: 200-239 mg/dL High: > or = 240 mg/dL Blood specimen (specimen) 12/04/2015 8:34 AM EDT 12/04/2015 8:42 AM EDT Narrative Resulting Agency Comment Spec In Lab Tal Eagle MD CHEMISTRY ORDERAB LES Performing Organization Address City/[facility]/ZIP Co de Phone Number [facility] [place] [address] * Protein/Creatinine Ratio, urine (12/04/2015 8:30 AM EDT) Creatinine, Urine 69 mg/dL [facility] Protein, Urine <6 0 - 12 mg/dL [facility] Protein / Creatinine Ratio, Urine <0.1 ratio [facility] Urine specimen (specimen) 12/04/2015 8:30 AM EDT 12/04/2015 8:44 AM EDT Narrative Resulting Agency Comment Spec In Lab Tal Eagle MD URINE ORDERABLES [facility] [place] [address] * (ABNORMAL) Urinalysis with reflex Culture (12/04/2015 [...] [place] [facility] Appearance, Urine Dipstick Clear Clear [facility] Specific Peculiar Urine Automated 1.008 1.002 - 1.030 [facility] Color, Urine Dipstick Straw Yellow [facility] RBC, Urine 1 0 - 3 /HPF [facility] WBC, Urine 4(H) 0 - 3 /HPF [facility] Bacteria, Urine Rare(A) None /HPF [facility] Squamous Epithelial Cells, Urine <1 <=4 /HPF [facility] Reflex to Culture No [facility] Urine specimen (specimen) 12/04/2015 8:30 AM EDT 12/04/2015 8:42 AM EDT Narrative Resulting Agency Comment Spec In Lab Tal Eagle MD URINE ORDERABLES [facility] [place] [address] documented in this encounter Visit Diagnoses Diagnosis Kidney replaced by transplant documented in this encounter Care Teams Dispatch Clerk Relationship Specialty Start Date End Date Urbano Denis DO [address] [place] [address] PCP - General 09/03/12 03/17/22 Ruchi Valles RN Nurse Clinic Transplant Surgery 07/30/15 documented as of this encounter
--- OUTSIDE RECORDS SUMMARY | 2024-05-16 17:36 | XMS_ITS | Encounter Summary ---
Author Organization [facility] [place] [address] Care Team Providers Care String Winding Machine Operator Name Role Phone Urbano Denis DO Primary Care Provider Encounter Details Date Type Department Care Team (Late st Contact Info) Description 11/20/2015 Telephone Solid [place] [phone] Samia Escalante, RN Social History Tobacco Use [...] call with additional concerns. Samia Escalante RN [facility] Solid Organ Transplant [phone] (Pager: [phone]) documented in this encounter Plan of Treatment Upcoming Encounters Date Type Department Care Team (Late st Contact Info) Description 06/22/2024 11:00 AM EST TH Visit (TeleHealth) Cardiology at [address] [phone] Byron Brown MD [facility] [place] [address] 07/14/2024 10:00 AM EST Hospital Encounter Non-[place] [phone] Arrived documented as of this encounter Visit Diagnoses Not on filedocumented in this encounter Care Teams String Winding Machine Operator Relationship Specialty Start Date End Date Urbano Denis DO [address] [place] [address] [address] [facility] [address] [place] [address] PCP - General 09/03/12 03/17/22 Ruchi Valles RN Nurse Clinic Transplant Surgery 07/30/15 documented as of this encounter
--- OUTSIDE RECORDS SUMMARY | 2024-05-16 17:36 | XMS_ITS | Encounter Summary ---
Author Organization [facility] [place] [address] Care Team Providers Care Nuclear Cardiology Technologist Name Role Phone Urbano Denis DO Primary Care Provider Encounter Details Date Type Department Care Team (Late st Contact Info) Description 11/21/2015 Telephone [place] [phone] Samia Escalante, RN Social History Tobacco Use [...] additional questions or concerns. Samia Escalante, RN [facility] Solid [place]plant [phone] (Pager: [phone]) documented in this encounter Plan of Treatment Upcoming Encounters Date Type Department Care Team (Late st Contact Info) Description 06/22/2024 11:00 AM EST TH Visit (TeleHealth) Cardiology at [address] [phone] Byron Brown MD [facility] [place] [address] 07/14/2024 10:00 AM EST Hospital Encounter [place] [phone] Arrived documented as of this encounter Visit Diagnoses Not on filedocumented in this encounter Care Teams Nuclear Cardiology Technologist Relationship Specialty Start Date End Date Urbano Denis DO [address] [place] [address] PCP - General 09/03/12 03/17/22 Ruchi Valles RN Nurse Clinic Transplant Surgery 07/30/15 documented as of this encounter
--- OUTSIDE RECORDS SUMMARY | 2024-05-16 17:36 | XMS_ITS | Encounter Summary ---
Author Organization [facility] [place] [address] Care Team Providers Care Stationary Plant Operators Name Role Phone Urbano Denis DO Primary Care Provider [phone] Reason for Visit * Auth/Cert Specialty Diagnoses / Procedures Referred By Humberto flor Referred To Contact Diagnoses UTI (urinary tract infection) RECURRENT UTI/KIDNEY TX 09/2015 Referral ID Status Reason Start Date Expiration Date Visits Re quested Visits Authorized [id number] 1 1 Encounter Details Date Type Department Care Team (Latest Contact Info) Description 12/07/2015 7:30 AM EDT Laboratory Appointment Lab [address] [place] [phone] Kidney replaced by transplant Social History Tobacco [...] EST TH Visit (TeleHealth) Cardiology at [address] [phone] Byron Brown MD [facility] [place] [address] 07/14/2024 10:00 AM EST Hospital Encounter Non-[place]vasive [place] [phone] Arrived documented as of this [...] LABORATORY Leukocytes, Urine Dipstick Large(A) Negative mcL [facility] Appearance, Urine Dipstick Hazy(A) Clear [facility] Specific [place] Urine Automated 1.011 1.002 - 1.030 [facility] Color, Urine Dipstick Yellow Yellow [facility] RBC, Urine 38(H) 0 - 3 /HPF [facility] WBC, Urine 56(H) 0 - 3 /HPF [facility] WBC Clumps, Urine Rare(A) None /HPF [facility] Bacteria, Urine Rare(A) None /HPF [facility] Hyaline Casts, Urine 1 0 - 2 /LPF [facility] Reflex to Culture Yes [facility] Urine specimen (specimen) 12/07/2015 8:10 AM EDT 12/07/2015 8:17 AM EDT Narrative Resulting Agency Comment Spec In Lab Que Amaro MD URINE ORDERABL ES [facility] [place] [address] * (ABNORMAL) Protein/Creatinine Ratio, urine (12/07/2015 8:09 AM EDT) Creatinine, Urine 97 mg/dL [facility] Protein, Urine 52(H) 0 - 12 mg/dL [facility] Protein / Creatinine Ratio, Urine 0.5 ratio [facility] Urine specimen (specimen) 12/07/2015 8:09 AM EDT 12/07/2015 8:15 AM EDT Narrative Resulting Agency Comment Spec In Lab Que Amaro MD URINE ORDERABL ES [facility] [place] [address] * (ABNORMAL) Differential, Automated (12/07/2015 7:55 AM EDT) Neutrophil % 78.4 % [facility] Neutrophil Absolute 4.07 1.50 - 6.30 x10(3)/mc L [facility] Lymph % 15.0 % [facility] Lymphocytes Abs 0.8(L) 1.0 - 3.6 x10(3)/mc L [facility] Monocyte % 2.3 % [facility] Monocyte Abs 0.1(L) 0.2 - 1.0 x10(3)/mc L [facility] Eos % 2.9 % [facility] Eosinophils Abs 0.2 0.0 - 0.5 x10(3)/mc L [facility] Basophil % 0.8 % [facility] Baso Absolute 0.0 0.0 - 0.2 x10(3)/mc L [facility] Immature Gran % 0.60 % [facility] Comment: Immature granulocytes(IG's)percentage and absolute count will include metamyelocytes, myelocytes, and promyelocytes. Blood smears from CBCs yielding IG's will be scanned manually for concordance. If this scan disagrees with the automated IG or if promyelocytes are noted, a manual differential will be performed. Immature Gran Absolute 0.03 0.00 - 0.05 x10(3)/mc L [facility] Blood specimen (specimen) 12/07/2015 7:55 AM EDT 12/07/2015 8:01 AM EDT Narrative Resulting Agency Comment Spec In Lab Que Amaro MD HEMATOLOGY ORD ERABLES Performing Organization Address City/[facility]/ZIP Co de Phone Number [facility] [place] [address] * (ABNORMAL) Hemogram (12/07/2015 7:55 AM EDT) White Blood Cell 5.2 4.0 - 10.0 x10(3)/mc L [facility] Red Blood Cell 4.47(L) 4.63 - 6.08 x10(6)/mc L [facility] Hemoglobin 14.3 13.7 - 17.5 gm/dL [facility] Hematocrit 42.0 40.0 - 51.0 % [facility] Mean Cell Volume 94.0(H) 79.0 - 92.0 fL [facility] Mean Cell Hemoglobin 32.0 25.6 - 32.2 pg [facility] Mean Cell Hemoglobin Concentration 34.0 32.0 - 36.5 gm/dL [facility] Platelet 232 145 - 370 x10(3)/mc L [facility] RDW Standard Deviation 47.4(H) 35.0 - 46.0 fL [facility] RDW coefficient of variation 13.9 10.9 - 14.4 % [facility] Mean Platelet Volume 9.7 9.0 - 12.0 fL [facility] Blood specimen (specimen) 12/07/2015 7:55 AM EDT 12/07/2015 8:01 AM EDT Narrative Resulting Agency Comment Spec In Lab Que Amaro MD HEMATOLOGY ORD ERABLES Performing Organization Address City/[facility]/ZIP Co de Phone Number [facility] [place] [address] * (ABNORMAL) Comprehensive metabolic panel (non-fasting) (12/07/2015 7:55 AM EDT) Glucose 155 65 - 199 mg/dL [facility] Comment:Diabetes: >=200 mg/d L plus symptoms Blood Urea Nitrogen 31(H) 10 - 20 mg/dL [facility] Creatinine 2.98(H) 0.80 - 1.50 mg/dL [facility] Comment: Please note that the pediatric reference intervals supplied above were not validated at [facility]. Results from pediatric patients should be interpreted in conjunction to the patient's age, height and muscle mass. Sodium 139 135 - 145 mmol/L [facility] Potassium 4.6 3.5 - 5.0 mmol/L [facility] [...] - 15 mmol/L [facility] Calcium 9.7 8.5 - 10.5 mg/dL [facility] Protein, Total 8.1(H) 6.1 - 8.0 gm/dL [facility] Albumin 4.5 3.2 - 5.2 gm/dL [facility] Aspartate Aminotransferase 24 0 - 39 unit/L [facility] Alanine Aminotransferase 22 0 - 55 unit/L [facility] Alkaline Phosphatase 76 40 - 120 unit/L [facility] Bilirubin, Total 0.9 0.2 - 1.3 mg/dL [facility] Bilirubin, Direct 0.3 0.0 - 0.3 mg/dL [facility] Est Glomerular Filtration Rate 21(L) >=60 [facility] Comment: This estimated [...] the following links into your internet browser. [email or web address] Blood specimen (specimen) 12/07/2015 7:55 AM EDT 12/07/2015 8:01 AM EDT Narrative Resulting Agency Comment Spec In Lab Que Amaro MD CHEMISTRY ROCHELLE JENNINGS Performing Organization Address [facility] Co de Phone Number [facility] [place] [address] * (ABNORMAL) Magnesium (12/07/2015 7:55 AM EDT) Magnesium 0.65(L) 0.69 - 1.07 mmol/L [facility] Blood specimen (specimen) 12/07/2015 7:55 AM EDT 12/07/2015 8:01 AM EDT Narrative Resulting Agency Comment Spec In Lab Que Amaro MD CHEMISTRY ORDBhargav JENNINGS Performing Organization Address [facility] Co de Phone Number [facility] [place] [address] * Phosphorus (12/07/2015 7:55 AM EDT) Phosphorus 3.0 2.5 - 4.5 mg/dL [facility] Blood specimen (specimen) 12/07/2015 7:55 AM EDT 12/07/2015 8:01 AM EDT Narrative Resulting Agency Comment Spec In Lab Que Amaro MD CHEMISTRY ORDBhargav JENNINGS Performing Organization Address City/[facility] Co de Phone Number [facility] [place] [address] * (ABNORMAL) Uric acid (12/07/2015 7:55 AM EDT) Pathologist [facility] Uric Acid 11.1(H) 3.5 - 8.5 mg/dL [facility] Blood specimen (specimen) 12/07/2015 7:55 AM EDT 12/07/2015 8:01 AM EDT Narrative Resulting Agency Comment Spec In Lab Que Amaro MD CHEMISTRY ORDBhargav JENNINGS Performing Organization Address City/[facility]/ZIP Co de Phone Number [facility] [place] [address] * Tacrolimus level (12/07/2015 7:55 AM EDT) Pathologist [facility] Tacrolimus 5.6 ng/mL [facility] Comment:Trough therapeutic: 5-15 ng/mL Blood specimen (specimen) 12/07/2015 7:55 AM EDT 12/07/2015 10:52 AM EDT Narrative Resulting Agency Comment Spec In Lab Que Amaro MD CHEMISTRY ORDE DICK Performing Organization Address [facility]/ZIP Co de Phone Number [facility] [place] [address] * Reticulocyte Count (12/07/2015 7:55 AM EDT) Reticulocyte % 1.8 0.5 - 2.4 % [facility] Retic Abs # 0.080 0.027 - 0.095 x10(6)/mcL [facility] Immature Retic% 3.8 2.3 - 15.9 % [facility] Reticulated Hgb 34.0 28.5 - 38.9 pg [facility] Immature Plt % 1.2 0.0 - 7.4 % [facility] Blood specimen (specimen) 12/07/2015 7:55 AM EDT 12/07/2015 8:01 AM EDT Narrative Resulting Agency Comment Spec In Lab Que Amaro MD HEMATOLOGY STEVE LINARES Performing Organization Address City/[facility]/ZIP Co de Phone Number [facility] [place] [address] * Cholesterol, total (12/07/2015 7:55 AM EDT) Cholesterol, Total 150 <=199 mg/dL [facility] Comment: Recommendations of the NCEP Adult Treatment Panel for the following risk cutoff thresholds for the [place] population: Desirable: <200 mg/dL Borderline High: 200-239 mg/dL High: > or = 240 mg/dL Blood specimen (specimen) 12/07/2015 7:55 AM EDT 12/07/2015 8:01 AM EDT Narrative Resulting Agency Comment Spec In Lab Que Amaro MD CHEMISTRY ROCHELLE JENNINGS Performing Organization Address [facility] Co de Phone Number [facility] [place] [address] documented in this encounter Visit Diagnoses Diagnosis Kidney replaced by transplant documented in this encounter Care Teams Stationary Plant Operators Relationship Specialty Start Date End Date Urbano Denis DO [address] [place] [address] PCP - General 09/03/12 03/17/22 Ruchi Valles RN Nurse Clinic Transplant Surgery 07/30/15 documented as of this encounter
--- OUTSIDE RECORDS SUMMARY | 2024-05-16 17:36 | XMS_ITS | Encounter Summary ---
Author Organization [place] [address] Care Team Providers Care Crab Butcher Name Role Phone Urbano Denis DO Primary Care Provider Encounter Details Date Type Department Care Team (Late st Contact Info) Description 11/23/2015 9:30 AM EDT Office Visit [place] [address] Jennifer Amaro MD [facility] [place] [address] H/O kidney transplant Social History Tobacco Use [...] Bell, RD - 11/23/2015 2:36 PM EDT [facility] Post Transplant Nutrition Follow Up Date: 11/23/2015 Patient: Cody Bolden Transplant Date: 09/16/15 [place] [facility] UNOS diagnosis: Transplant: Mr. Cody Bolden [...] Value Date CHLPL 142 11/23/2015 Assessment: This content writer provided patient with a copy of his post-transplant nutrition lab report and reviewed with him and his . 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 Continue present plan as per MD. Plan: Follow up next clinic visit and prn. * Jennifer mAaro MD - 11/23/2015 10:01 AM EDT Follow-Up: [...] TOUCH ULTRAMINI Kit 0 ??? ONE TOUCH [employer] LANCETS 30 gauge Misc 0 No current [...] EXTREMITY performed by Jennifer Amaro MD at [facility] MAIN OR ??? Pro transplantation of kidney N/A 09/16/2015 @KIDNEY TRANSPLANT, WITHOUT RECIPIENT NEPHRECTOMY performed by Franko Larkin MD at [facility] MAIN OR ??? Pro transplant, prep cadaver renal graft N/A 09/16/2015 @PREPARATION CADAVERIC RENAL ALLOGRAFT performed by Franko Larkin MD at [facility] MAIN OR ??? N/A 09/16/2015 ORGAN ACQUISITION RENAL, CADAVERIC performed by Franko Larkin MD at [facility] OR Family History: No [...] AM EST Visit (TeleHealth) Cardiology at [address] [phone] Byron Brown MD [facility] [place] [address] 07/14/2024 10:00 AM EST Hospital Encounter Non-[place] [phone] Arrived documented as of this encounter Procedures [...] Jennifer Amaro MD MICROBIOLOGY - GENERAL ORDERABLES [facility] [place] [address] * Green Tube HOLD (11/23/2015 8:40 AM EDT) Pathologist [facility] Green Hold Sample in lab. [facility] Blood specimen (specimen) Venous Draw / Unknown 11/23/2015 8:40 AM EDT 11/23/2015 8:54 AM EDT Jennifer Amaro MD CHEMISTRY ROCHELLE JENNINGS [facility] [place] [address] * (ABNORMAL) Differential, Automated (11/23/2015 8:40 AM EDT) [facility] Neutrophil % 73.2 % [facility] Neutrophil Absolute 5.58 1.50 - 6.30 x10(3)/mc L [facility] Lymph % 13.2 % [facility] Lymphocytes Abs 1.0 1.0 - 3.6 x10(3)/mc L [facility] Monocyte % 5.2 % [facility] Monocyte Abs 0.4 0.2 - 1.0 x10(3)/mc L [facility] Eos % 1.8 % [facility] Eosinophils Abs 0.1 0.0 - 0.5 x10(3)/mc L [facility] Basophil % 1.0 % [facility] Baso Absolute 0.1 0.0 - 0.2 x10(3)/mc L [facility] Immature Gran % 5.60 % [facility] Comment: Immature granulocytes(IG's)percentage and absolute count will include metamyelocytes, myelocytes, and promyelocytes. Blood smears from CBCs yielding IG's will be scanned manually for concordance. If this scan disagrees with the automated IG or if promyelocytes are noted, a manual differential will be performed. Immature Gran Absolute 0.43(H) 0.00 - 0.05 x10(3)/mc L [facility] Blood specimen (specimen) 11/23/2015 8:40 AM EDT 11/23/2015 8:53 AM EDT Narrative Resulting Agency Comment Spec In Lab Jennifer Amaro MD HEMATOLOGY ORD ERABLES [facility] [place] [address] * (ABNORMAL) Hemogram (11/23/2015 8:40 AM EDT) Pathologist [facility] White Blood Cell 7.6 4.0 - 10.0 x10(3)/mc L [facility] Red Blood Cell 4.21(L) 4.63 - 6.08 x10(6)/mc L [facility] Hemoglobin 13.4(L) 13.7 - 17.5 gm/dL [facility] Hematocrit 38.7(L) 40.0 - 51.0 % [facility] Mean Cell Volume 91.9 79.0 - 92.0 fL [facility] Mean Cell Hemoglobin 31.8 25.6 - 32.2 pg [facility] Mean Cell Hemoglobin Concentration 34.6 32.0 - 36.5 gm/dL [facility] Platelet 397(H) 145 - 370 x10(3)/mc L [facility] RDW Standard Deviation 47.4(H) 35.0 - 46.0 fL [facility] RDW coefficient of variation 14.2 10.9 - 14.4 % [facility] Mean Platelet Volume 9.3 9.0 - 12.0 fL [facility] Blood specimen (specimen) 11/23/2015 8:40 AM EDT 11/23/2015 8:53 AM EDT Narrative Resulting Agency Comment Spec In Lab Jennifer Amaro MD HEMATOLOGY ORD ERABLES [facility] [place] [address] * Tacrolimus level (11/23/2015 8:40 AM EDT) Pathologist [facility] Tacrolimus 9.0 ng/mL [facility] Comment:Trough therapeutic: 5-15 ng/mL Blood specimen (specimen) 11/23/2015 8:40 AM EDT 11/23/2015 11:10 AM EDT Narrative Resulting Agency Comment Spec In Lab Jennifer Amaro MD CHEMISTRY ROCHELLE JENNINGS Performing Organization Address City/State/[facility] Co de Phone Number [facility] [place] [address] * (ABNORMAL) Urinalysis with reflex Culture (11/23/2015 [...] [place] [facility] Appearance, Urine Dipstick Clear Clear [facility] Specific [place] Urine Automated 1.009 1.002 - 1.030 [facility] Color, Urine Dipstick Yellow Yellow [facility] RBC, Urine <1 0 - 3 /HPF [facility] WBC, Urine 6(H) 0 - 3 /HPF [facility] Squamous Epithelial Cells, Urine <1 <=4 /HPF [facility] Reflex to Culture Yes [facility] Urine specimen obtained by clean catch procedure (specimen) 11/23/2015 8:40 AM EDT 11/23/2015 8:50 AM EDT Narrative Resulting Agency Comment Spec In Lab Jennifer Amaro MD URINE ORDERABL ES Performing Organization Address [facility] Co de Phone Number [facility] [place] [address] * Reticulocyte Count (11/23/2015 8:40 AM EDT) Reticulocyte % 2.2 0.5 - 2.4 % [facility] Retic Abs # 0.090 0.027 - 0.095 x10(6)/[facility] Immature Retic% 10.9 2.3 - 15.9 % [facility] Reticulated Hgb 33.0 28.5 - 38.9 pg [facility] Immature Plt % 1.1 0.0 - 7.4 % [facility] Blood specimen (specimen) 11/23/2015 8:40 AM EDT 11/23/2015 8:53 AM EDT Narrative Resulting Agency Comment Spec In Lab Jennifer Amaro MD HEMATOLOGY ORD ERABLES Performing Organization Address [facility] de Phone Number [facility] [place] [address] * (ABNORMAL) Magnesium (11/23/2015 8:40 AM EDT) Magnesium 0.57(L) 0.69 - 1.07 mmol/L [facility] Blood specimen (specimen) 11/23/2015 8:40 AM EDT 11/23/2015 8:53 AM EDT Narrative Resulting Agency Comment Spec In Lab Jennifer Amaro MD CHEMISTRY ORDE RABLENORE Performing Organization Address [facility] Co de Phone Number [facility] [place] [address] * Phosphorus (11/23/2015 8:40 AM EDT) Phosphorus 3.0 2.5 - 4.5 mg/dL [facility] Blood specimen (specimen) 11/23/2015 8:40 AM EDT 11/23/2015 8:53 AM EDT Narrative Resulting Agency Comment Spec In Lab Jennifer Amaro MD CHEMISTRY ORDTiny JENNINGS Performing Organization Address [facility] Co de Phone Number [facility] [place] [address] * (ABNORMAL) Uric acid (11/23/2015 8:40 AM EDT) [facility] Uric Acid 10.1(H) 3.5 - 8.5 mg/dL [facility] Blood specimen (specimen) 11/23/2015 8:40 AM EDT 11/23/2015 8:53 AM EDT Narrative Resulting Agency Comment Spec In Lab Jennifer Amaro MD CHEMISTRY ORDTiny JENNINGS Performing Organization Address [facility] Co de Phone Number [facility] [place] [address] * (ABNORMAL) Comprehensive metabolic panel (non-fasting) (11/23/2015 8:40 AM EDT) Pathologist [facility] Glucose 183 65 - 199 mg/dL [facility] Comment:Diabetes: >=200 mg/d L plus symptoms Blood Urea Nitrogen 26(H) 10 - 20 mg/dL [facility] Creatinine 2.27(H) 0.80 - 1.50 mg/dL [facility] Comment: Please note that the pediatric reference intervals supplied above were not validated at [facility]. Results from pediatric patients should be interpreted in conjunction to the patient's age, height and muscle mass. Sodium 141 135 - 145 mmol/L [facility] Potassium 4.8 3.5 - 5.0 mmol/L [facility] [...] - 15 mmol/L [facility] Calcium 9.3 8.5 - 10.5 mg/dL [facility] Protein, Total 7.2 6.1 - 8.0 gm/dL [facility] Albumin 3.9 3.2 - 5.2 gm/dL [facility] Aspartate Aminotransferase 25 0 - 39 unit/L [facility] Alanine Aminotransferase 35 0 - 55 unit/L [facility] Alkaline Phosphatase 75 40 - 120 unit/L [facility] Bilirubin, Total 0.7 0.2 - 1.3 mg/dL [facility] Bilirubin, Direct 0.2 0.0 - 0.3 mg/dL [facility] Est Glomerular Filtration Rate 29(L) >=60 [facility] Comment: This estimated [...] the following links into your internet browser. [email or web address] Blood specimen (specimen) 11/23/2015 8:40 AM EDT 11/23/2015 8:53 AM EDT Narrative Resulting Agency Comment Spec In Lab Jennifer Amaro MD CHEMISTRY ORDE DICK [facility] Organization Address City/State/ZIP Co de Phone Number [facility] [place] [address] * Cholesterol, total (11/23/2015 8:40 AM EDT) Cholesterol, Total 142 <=199 mg/dL [facility] Comment: Recommendations of the NCEP Adult Treatment Panel for the following risk cutoff thresholds for the [place] population: Desirable: <200 mg/dL Borderline High: 200-239 mg/dL High: > or = 240 mg/dL Blood specimen (specimen) 11/23/2015 8:40 AM EDT 11/23/2015 8:53 AM EDT Narrative Resulting Agency Comment Spec In Lab Jennifer Amaro MD CHEMISTRY ROCHELLE JENNINGS [facility] [place] [address] documented in this encounter Visit Diagnoses Diagnosis H/O kidney transplant Kidney replaced by transplant documented in this encounter Care Teams Crab Butcher Relationship Specialty Start Date End Date Urbano Denis DO [address] [place] [address] PCP - General 09/03/12 03/17/22 Ruchi Valles RN Nurse Clinic Transplant Surgery 07/30/15 documented as of this encounter
--- OUTSIDE RECORDS SUMMARY | 2024-05-16 17:36 | XMS_ITS | Encounter Summary ---
[place] [address] Care Team Providers Care Scrap Iron Loader Name Role Phone Urbano Denis DO Primary Care Provider Reason for Visit * Auth/Cert Specialty Diagnoses / Procedures Referred By Humberto flor Referred To Contact Diagnoses UTI (urinary tract infection) RECURRENT UTI/KIDNEY TX 09/2015 Referral ID Status Reason Start Date Expiration Date Visits Re quested Visits Authorized [id number] 1 1 Encounter Details Date Type Department Care Team (Latest Contact Info) Description 12/07/2015 12:00 PM EDT - 12/07/2015 11:59 PM EDT Hospital [place] [address] [place], [place] Discharge Disposition: Home Social History Tobacco [...] EST TH Visit (TeleHealth) Cardiology at [address] [phone] Byron Brown MD [facility] [place] [address] 07/14/2024 10:00 AM EST Hospital Encounter [place] [phone] Arrived documented as of this encounter Visit Diagnoses Not on filedocumented in this encounter Care Teams Scrap Iron Loader Relationship Specialty Start Date End Date Urbano Denis DO [address] [facility] [address] [place] [address] PCP - General 09/03/12 03/17/22 Ruchi Valles RN Nurse Clinic Transplant Surgery 07/30/15 documented as of this encounter
--- OUTSIDE RECORDS SUMMARY | 2024-05-16 17:37 | XMS_ITS | Encounter Summary ---
[place] [address] Care Team Providers Care Grill Attendant Name Role Phone Urbano Denis DO Primary Care Provider Encounter Details Date Type Department Care Team (Latest Contact Info) Description 11/02/2015 7:38 PM EDT - 11/02/2015 11:59 PM EDT Hospital [place] [address] Discharge Disposition: Home Social History Tobacco Use [...] EST TH Visit (TeleHealth) Cardiology at [address] [phone] Byron Brown MD [facility] [place] [address] 07/14/2024 10:00 AM EST Hospital Encounter Non-Invasive [place] [phone] Arrived documented as of this encounter Procedures Procedure Name Priority Date/Time Associated Diagnosis Comments TACROLIMUS LEVEL Routine 11/02/2015 9:36 AM EDT documented in this encounter Results * Tacrolimus level (11/02/2015 9:36 AM EDT) Tacrolimus 13.2 ng/mL [facility] Comment:Trough therapeutic: 5-15 ng/mL Blood specimen (specimen) Venous Draw / Unknown 11/02/2015 9:36 AM EDT 11/05/2015 7:57 AM EDT Narrative Resulting Agency Comment Spec In Lab Tal Eagle MD CHEMISTRY ORDERAB LES [facility] [place] [phone] documented in this encounter Visit Diagnoses Not on filedocumented in this encounter Care Teams Grill Attendant Relationship Specialty Start Date End Date Urbano Denis DO [address] [place] [address] PCP - General 09/03/12 03/17/22 Ruchi Valles RN Nurse Clinic Transplant Surgery 07/30/15 documented as of this encounter
--- OUTSIDE RECORDS SUMMARY | 2024-05-16 17:37 | XMS_ITS | Encounter Summary ---
Author Organization [facility] [place] [address] Care Team Providers Care Instructional Services Librarian Name Role Phone Urbano Denis DO Primary Care Provider Encounter Details Date Type Department Care Team (Late st Contact Info) Description 11/20/2015 10:00 AM EDT Office Visit [place] [address] Jennifer Amaro MD [facility] [place] [address] H/O kidney transplant Social History Tobacco Use [...] Bell, RD - 11/20/2015 4:20 PM EDT [facility] Post Transplant Nutrition Follow Up Date: 11/20/2015 Patient: Cody Bolden Transplant Date: 09/16/15 [place] [facility] UNOS diagnosis: Transplant: Mr. Cody Bolden [...] Value Date CHLPL 149 11/20/2015 Assessment: This filing writer provided patient with a copy of [...] performed by Jennifer Amaro MD at [facility] OR [...] Larkin MD at [facility] OR Family History: No family history [...] EST TH Visit (TeleHealth) Cardiology at [address] [phone] Byron Brown MD [facility] [place] [address] 07/14/2024 10:00 AM EST Hospital Encounter Non[place] [address] Arrived documented as of this [...] 9:20 AM EDT) BKV Urine Result Positive [facility] BKV Urine Interp BK [...] DNA isolated from urine was performed using Realm BKV (ASR) reagents and the [employer] Bunch 7500 FAST Real-Time PCR System. In addition, [...] allowed to perform high complexity clinical testing. [facility] Comment: [VERIFIED DATE]11.21.15 Verified By:Susy Grider (Electronic Signature) Urine specimen (specimen) 11/20/2015 9:20 AM EDT 11/20/2015 11:44 AM EDT Narrative Resulting Agency Comment Spec In Lab Jennifer Amaro MD HEMATOLOGY ORD ERABLES Performing Organization Address City/[facility]/ZIP Co de Phone Number [facility] [place] [address] * Scan, Peripheral Blood (11/20/2015 9:20 AM EDT) Plat estimate Increased [facility] RBC Morphology Normal [facility] Plat, Giant Less than 1 /HPF [facility] Platelet Clumps Present [facility] Blood specimen (specimen) 11/20/2015 9:20 AM EDT 11/20/2015 9:48 AM EDT Narrative Resulting Agency Comment Spec In Lab Jennifer Amaro MD HEMATOLOGY ORD ERABLES Performing Organization Address City/[facility]/ZIP Co de Phone Number [facility] [place] [address] * Urine culture (11/20/2015 9:20 AM EDT) Pathologist [facility] Urine Culture No growth (Less than 1,000 cfu/ml). [facility] Urine specimen obtained by clean catch procedure (specimen) 11/20/2015 9:20 AM EDT 11/20/2015 10:39 AM EDT Narrative Resulting Agency Comment Spec In Lab Jennifer Amaro MD MICROBIOLOGY - GENERAL ORDERABLES Performing Organization Address City/[facility]/ZIP Co de Phone Number [facility] [place] [address] * Green Tube HOLD (11/20/2015 9:20 AM EDT) Pathologist [facility] Green Hold Sample in lab. [facility] Blood specimen (specimen) Venous Draw / Unknown 11/20/2015 9:20 AM EDT 11/20/2015 9:50 AM EDT Jennifer Amaro MD CHEMISTRY ORDE DICK Performing Organization Address City/[facility]/[place] [address] * (ABNORMAL) Differential, Automated (11/20/2015 9:20 AM EDT) Neutrophil % 64.6 % [facility] Neutrophil Absolute 5.33 1.50 - 6.30 x10(3)/mc L [facility] Lymph % 15.9 % [facility] Lymphocytes Abs 1.3 1.0 - 3.6 x10(3)/ L [facility] Monocyte % 7.1 % [facility] Monocyte Abs 0.6 0.2 - 1.0 x10(3)/ L [facility] Eos % 1.9 % [facility] Eosinophils Abs 0.2 0.0 - 0.5 x10(3)/ L [facility] Basophil % 0.8 % [facility] Baso Absolute 0.1 0.0 - 0.2 x10(3)/ L [facility] Immature Gran % 9.70 % [facility] Comment: Immature granulocytes(IG's)percentage and absolute count will include metamyelocytes, myelocytes, and promyelocytes. Blood smears from CBCs yielding IG's will be scanned manually for concordance. If this scan disagrees with the automated IG or if promyelocytes are noted, a manual differential will be performed. Immature Gran Absolute 0.80(H) 0.00 - 0.05 x10(3)/ L [facility] Blood specimen (specimen) 11/20/2015 9:20 AM EDT 11/20/2015 9:48 AM EDT Narrative Resulting Agency Comment Spec In Lab Jennifer Amaro MD HEMATOLOGY ORD MILAGROS Performing Organization Address City/[facility]/ZIP Co de Phone Number [facility] [place] [address] * (ABNORMAL) Hemogram (11/20/2015 9:20 AM EDT) Pathologist [facility] White Blood Cell 8.3 4.0 - 10.0 x10(3)/mc L [facility] Red Blood Cell 4.45(L) 4.63 - 6.08 x10(6)/mc L [facility] Hemoglobin 14.4 13.7 - 17.5 gm/dL [facility] Hematocrit 40.7 40.0 - 51.0 % [facility] Mean Cell Volume 91.5 79.0 - 92.0 fL [facility] Mean Cell Hemoglobin 32.4(H) 25.6 - 32.2 pg [facility] Mean Cell Hemoglobin Concentration 35.4 32.0 - 36.5 gm/dL [facility] Platelet 427(H) 145 - 370 x10(3)/mc L [facility] RDW Standard Deviation 45.3 35.0 - 46.0 fL [facility] RDW coefficient of variation 13.6 10.9 - 14.4 % [facility] Mean Platelet Volume 9.7 9.0 - 12.0 fL [facility] Blood specimen (specimen) 11/20/2015 9:20 AM EDT 11/20/2015 9:48 AM EDT Narrative Resulting Agency Comment Spec In Lab Jennifer Amaro MD HEMATOLOGY ORD ERABLES [facility] [place] [address] * (ABNORMAL) Reticulocyte Count (11/20/2015 9:20 AM EDT) [facility] Reticulocyte % 2.3 0.5 - 2.4 % [facility] Retic Abs # 0.100(H) 0.027 - 0.095 x10(6)/mc L [facility] Immature Retic% 5.0 2.3 - 15.9 % [facility] Reticulated Hgb 36.8 28.5 - 38.9 pg [facility] Immature Plt % 1.4 0.0 - 7.4 % [facility] Blood specimen (specimen) 11/20/2015 9:20 AM EDT 11/20/2015 9:48 AM EDT Narrative Resulting Agency Comment Spec In Lab Jennifer Amaro MD HEMATOLOGY ORD ERABLES Performing Organization Address [facility] Co de Phone Number [facility] [place] [address] * Tacrolimus level (11/20/2015 9:20 AM EDT) Tacrolimus 16.1 ng/mL [facility] Comment: Called by: REYNALDO, Read back by: JANINE, Date/Time:11/20/15 14:10_. Trough therapeutic: ??5-15 ng/mL Blood specimen (specimen) 11/20/2015 9:20 AM EDT 11/20/2015 1:28 PM EDT Narrative Resulting Agency Comment Spec In Lab Jennifer Amaro MD CHEMISTRY ORDE DICK Performing Organization Address [facility] Co de Phone Number [facility] [address] * (ABNORMAL) Urinalysis with reflex Culture (11/20/2015 [...] [facility] Leukocytes, Urine Dipstick Trace(A) Negative [facility] Appearance, Urine Dipstick Hazy(A) Clear [facility] Specific Macy Urine Automated 1.014 1.002 - 1.030 [facility] Color, Urine Dipstick Yellow Yellow [facility] RBC, Urine 3 0 - 3 /HPF [facility] WBC, Urine 25(H) 0 - 3 /HPF [facility] Bacteria, Urine Rare(A) None /HPF [facility] Squamous Epithelial Cells, Urine <1 <=4 /HPF [facility] Transitional Epithelial Cells, Urine 2(H) <=1 /HPF [facility] Renal Epithelial Cells, Urine <1(H) <=0 /HPF [facility] Reflex to Culture Yes [facility] Urine specimen obtained by clean catch procedure (specimen) 11/20/2015 9:20 AM EDT 11/20/2015 9:48 AM EDT Narrative Resulting Agency Comment Spec In Lab Jennifer Amaro MD URINE ORDERABL ES [facility] [address] * (ABNORMAL) Uric acid (11/20/2015 9:20 AM EDT) Uric Acid 9.3(H) 3.5 - 8.5 mg/dL [facility] Blood specimen (specimen) 11/20/2015 9:20 AM EDT 11/20/2015 9:48 AM EDT Narrative Resulting Agency Comment Spec In Lab Jennifer Amaro MD CHEMISTRY ORDTiny JENNINGS Performing Organization Address City/[facility]/ZIP Co de Phone Number [facility] [place] [address] * Phosphorus (11/20/2015 9:20 AM EDT) [facility] Phosphorus 3.1 2.5 - 4.5 mg/dL [facility] Blood specimen (specimen) 11/20/2015 9:20 AM EDT 11/20/2015 9:48 AM EDT Narrative Resulting Agency Comment Spec In Lab Jennifer Amaro MD CHEMISTRY ROCHELLE JENNINGS Performing Organization Address [facility] Co de Phone Number [facility] [address] * (ABNORMAL) Magnesium (11/20/2015 9:20 AM EDT) [facility] Magnesium 0.60(L) 0.69 - 1.07 mmol/L [facility] Blood specimen (specimen) 11/20/2015 9:20 AM EDT 11/20/2015 9:48 AM EDT Narrative Resulting Agency Comment Spec In Lab Jennifer Amaro MD CHEMISTRY ORDTiny JENNINGS Performing Organization Address [facility] Co de Phone Number [facility] [address] * (ABNORMAL) Comprehensive metabolic panel (non-fasting) (11/20/2015 9:20 AM EDT) [facility] Glucose 184 65 - 199 mg/dL [facility] Comment:Diabetes: >=200 mg/d L plus symptoms Blood Urea Nitrogen 25(H) 10 - 20 mg/dL [facility] Creatinine 2.37(H) 0.80 - 1.50 mg/dL [facility] Comment: Please note that the pediatric reference intervals supplied above were not validated at [facility] [place]. Results from pediatric patients should be interpreted in conjunction to the patient's age, height and muscle mass. Sodium 137 135 - 145 mmol/L [facility] Potassium 4.8 3.5 - 5.0 mmol/L [facility] Comment: Please note: ??Patients with WBC >100,000 may have falsely elevated Potassium levels. ??For accurate Potassium quantification in these patients send serum separator tube (gold top) for subsequent determinations. ??Contact the Clinical Chemistry Laboratory if there are any questions. Chloride 101 98 - 107 mmol/L [facility] Carbon Dioxide 20(L) 22 - 31 mmol/L [facility] Anion Gap 16(H) 5 - 15 mmol/L [facility] Calcium 9.4 8.5 - 10.5 mg/dL [facility] Protein, Total 7.6 6.1 - 8.0 gm/dL [facility] Albumin 4.0 3.2 - 5.2 gm/dL [facility] Aspartate Aminotransferase 49(H) 0 - 39 unit/L [facility] Alanine Aminotransferase 70(H) 0 - 55 unit/L [facility] Alkaline Phosphatase 73 40 - 120 unit/L [facility] Bilirubin, Total 0.8 0.2 - 1.3 mg/dL [facility] Bilirubin, Direct 0.1 0.0 - 0.3 mg/dL [facility] Est Glomerular Filtration Rate 28(L) >=60 [facility] Comment: This [...] the following links into your internet browser. [email or web address] Blood specimen (specimen) 11/20/2015 9:20 AM EDT 11/20/2015 9:48 AM EDT Narrative Resulting Agency Comment Spec In Lab Jennifer Amaro MD CHEMISTRY ROCHELLE JENNINGS Performing Organization Address City/[facility] Co de Phone Number [facility] [address] * Cholesterol, total (11/20/2015 9:20 AM EDT) Cholesterol, Total 149 <=199 mg/dL [facility] Comment: Recommendations of the NCEP Adult Treatment Panel for the following risk cutoff thresholds for the [place] population: Desirable: <200 mg/dL Borderline High: 200-239 mg/dL High: > or = 240 mg/dL Blood specimen (specimen) 11/20/2015 9:20 AM EDT 11/20/2015 9:48 AM EDT Narrative Resulting Agency Comment Spec In Lab Jennifer JENNINGS Performing Organization Address [facility] Co de Phone Number [facility] [address] documented in this encounter Visit Diagnoses Diagnosis H/O kidney transplant Kidney replaced by transplant documented in this encounter Care Teams Instructional Services Librarian Relationship Specialty Start Date End Date Urbano Denis DO [address] [place] [address] PCP - General 09/03/12 03/17/22 Ruchi Valles RN Nurse Clinic Transplant Surgery 07/30/15 documented as of this encounter
--- OUTSIDE RECORDS SUMMARY | 2024-05-16 17:37 | XMS_ITS | Encounter Summary ---
Author Organization [facility] [place] [address] Care Team Providers Care Nurse Behavioral Health Care Name Role Phone Adeel Urbano KIRBY Primary Care Provider Encounter Details Date Type Department Care Team (Latest Contact Info) Description 11/08/2015 9:00 AM EDT Laboratory Appointment Lab [address] [place] [address] Kidney replaced by transplant Social [...] EST TH Visit (TeleHealth) Cardiology at [address] [address] Byron Brown MD [facility] [place] [address] 07/14/2024 10:00 AM EST Hospital Encounter [place] [address] Arrived documented as of this [...] AM EDT) BKV Urine Result Not Detected [facility] BKV Urine Interp BK [...] DNA isolated from urine was performed using [employer] BKV(ASR) reagents and the Applied VitalsGuard 7500 Fast Real-Time PCR System. In addition, the PCR product sequence is confirmed using physical properties (melt curve analysis). This test was developed and its performance determined by the [facility] Molecular Pathology Laboratory. It has not been cleared or approved by the U.S. Food and Drug Administration. This test is used for clinical purposes and should not be considered investigational or for research purposes. The Molecular Pathology Laboratory is certified by the Clinical Laboratory Improvement Act of 1988 and as such is allowed to perform high complexity clinical testing. [facility] Comment: [VERIFIED DATE]11.20.15 Verified By:Xiomy Gupta (Electronic Signature) Urine specimen (specimen) 11/08/2015 8:55 AM EDT 11/08/2015 10:49 AM EDT Narrative Resulting Agency Comment Spec In Lab Tal Eagle MD HEMATOLOGY ORDERA [facility] [place] [address] * (ABNORMAL) Urine culture (11/08/2015 8:55 AM EDT) Urine Culture 10,000-49,000 cfu/ml Enterococcus species(A) [facility] Organism Enterococcus species(A) [facility] Urine specimen (specimen) 11/08/2015 8:55 [...] - GE NERAL ORDERABLES Performing Organization Address [facility]/ZIP Co de Phone Number [facility] [place] [address] * Protein/Creatinine Ratio, urine (11/08/2015 8:55 AM EDT) Creatinine, Urine 112 mg/dL [facility] Protein, Urine 8 0 - 12 mg/dL [facility] Protein / Creatinine Ratio, Urine <0.[address] [facility] Urine specimen (specimen) 11/08/2015 8:55 AM EDT 11/08/2015 9:03 AM EDT Narrative Resulting Agency Comment Spec In Lab Tal Eagle MD URINE ORDERABLES Performing Organization Address [facility] Co de Phone Number [facility] [place] [address] * (ABNORMAL) Urinalysis with reflex Culture (11/08/2015 [...] LABORATORY Leukocytes, Urine Dipstick Trace(A) Negative [facility] Appearance, Urine Dipstick Clear Clear [facility] Specific [place] Urine Automated 1.016 1.002 - 1.030 [facility] Color, Urine Dipstick Yellow Yellow [facility] RBC, Urine 1 0 - 3 /HPF [facility] WBC, Urine 17(H) 0 - 3 /HPF [facility] Reflex to Culture Yes [facility] Urine specimen (specimen) 11/08/2015 8:55 AM EDT 11/08/2015 9:03 AM EDT Narrative Resulting Agency Comment Spec In Lab Tal Eagle MD URINE ORDERABLES Performing Organization Address City/State/[facility] Co de Phone Number [facility] [place] [address] * Differential, Automated (11/08/2015 8:49 AM EDT) Neutrophil % 70.9 % [facility] Neutrophil Absolute 5.70 1.50 - 6.30 x10(3)/[facility] LAB[facility] Lymph % 18.7 % [facility] Lymphocytes Abs 1.5 1.0 - 3.6 x10(3)/[facility] Monocyte % 5.6 % [facility] Monocyte Abs 0.4 0.2 - 1.0 x10(3)/[facility] Eos % 2.9 % [facility] Eosinophils Abs 0.2 0.0 - 0.5 x10(3)/[facility] Basophil % 1.4 % [facility] Baso Absolute 0.1 0.0 - 0.2 x10(3)/[facility] Immature Gran % 0.50 % [facility] Comment: Immature granulocytes(IG's)percentage and absolute count will include metamyelocytes, myelocytes, and promyelocytes. Blood smears from CBCs yielding IG's will be scanned manually for concordance. If this scan disagrees with the automated IG or if promyelocytes are noted, a manual differential will be performed. Immature Gran Absolute 0.04 0.00 - 0.05 x10(3)/mcL [facility] Blood specimen (specimen) 11/08/2015 8:49 AM EDT 11/08/2015 8:53 AM EDT Narrative Resulting Agency Comment Spec In Lab Tal Eagle MD HEMATOLOGY ORDERA BLES [facility] [place] [address] * (ABNORMAL) Hemogram (11/08/2015 8:49 AM EDT) White Blood Cell 8.0 4.0 - 10.0 x10(3)/mc L [facility] Red Blood Cell 4.42(L) 4.63 - 6.08 x10(6)/mc L [facility] Hemoglobin 14.0 13.7 - 17.5 gm/dL [facility] Hematocrit 41.1 40.0 - 51.0 % [facility] Mean Cell Volume 93.0(H) 79.0 - 92.[address] [facility] Mean Cell Hemoglobin 31.7 25.6 - 32.[address] [facility] Mean Cell Hemoglobin Concentration 34.1 32.0 - 36.5 gm/dL [facility] Platelet 279 145 - 370 x10(3)/mc L [facility] RDW Standard Deviation 50.8(H) 35.0 - 46.[address] [facility] RDW coefficient of variation 14.9(H) 10.9 - 14.4 % [facility] Mean Platelet Volume 9.3 9.0 - 12.[address] [facility] Blood specimen (specimen) 11/08/2015 8:49 AM EDT 11/08/2015 8:53 AM EDT Narrative Resulting Agency Comment Spec In Lab Tal Eagle MD HEMATOLOGY ORDERA BLES [facility] [place] [address] * (ABNORMAL) Comprehensive metabolic panel (non-fasting) (11/08/2015 8:49 AM EDT) Glucose 162 65 - 199 mg/dL [facility] Comment:Diabetes: >=200 mg/d L plus symptoms Blood Urea Nitrogen 23(H) 10 - 20 mg/dL [facility] Creatinine 1.89(H) 0.80 - 1.50 mg/dL [facility] [...] mmol/L [facility] Carbon Dioxide 23 22 - 31 mmol/L [facility] Anion Gap 14 5 - 15 mmol/L [facility] Calcium 9.1 8.5 - 10.5 mg/dL [facility] Protein, Total 7.2 6.1 - 8.0 gm/dL [facility] Albumin 4.2 3.2 - 5.2 gm/dL [facility] Aspartate Aminotransferase 22 0 - 39 unit/L [facility] Alanine Aminotransferase 25 0 - 55 unit/L [facility] Alkaline Phosphatase 83 40 - 120 unit/L [facility] Bilirubin, Total 0.7 0.2 - 1.3 mg/dL [facility] Bilirubin, Direct <0.1 0.0 - 0.3 mg/dL [facility] Est Glomerular Filtration Rate 36(L) >=60 [facility] Comment: This [...] the following links into your internet browser. [email or web address] Blood specimen (specimen) 11/08/2015 8:49 AM EDT 11/08/2015 8:53 AM EDT Narrative Resulting Agency Comment Spec In Lab Tal Eagle MD CHEMISTRY ORDERAB LES Performing Organization Address City/[facility]/ZIP Co de Phone Number [facility] [place] [address] * Magnesium (11/08/2015 8:49 AM EDT) Magnesium 0.69 0.69 - 1.07 mmol/L [facility] Blood specimen (specimen) 11/08/2015 8:49 AM EDT 11/08/2015 8:53 AM EDT Narrative Resulting Agency Comment Spec In Lab Tal Eagle MD CHEMISTRY ORDERAB LES [facility] [place] [address] * Phosphorus (11/08/2015 8:49 AM EDT) Phosphorus 2.7 2.5 - 4.5 mg/dL [facility] Blood specimen (specimen) 11/08/2015 8:49 AM EDT 11/08/2015 8:53 AM EDT Narrative Resulting Agency Comment Spec In Lab Tal Eagle MD CHEMISTRY ORDERAB LES Performing Organization Address [facility] Co de Phone Number [facility] [place] [address] * (ABNORMAL) Uric acid (11/08/2015 8:49 AM EDT) Uric Acid 9.8(H) 3.5 - 8.5 mg/dL [facility] Blood specimen (specimen) 11/08/2015 8:49 AM EDT 11/08/2015 8:53 AM EDT Narrative Resulting Agency Comment Spec In Lab Tal Eagle MD CHEMISTRY ORDERAB LES Performing Organization Address [facility] Co de Phone Number [facility] [place] [address] * Tacrolimus level (11/08/2015 8:49 AM EDT) Tacrolimus 12.7 ng/mL [facility] Comment:Trough therapeutic: 5-15 ng/mL Blood specimen (specimen) 11/08/2015 8:49 AM EDT 11/08/2015 11:06 AM EDT Narrative Resulting Agency Comment Spec In Lab Tal Eagle MD CHEMISTRY ORDERAB LES Performing Organization Address [facility] Co de Phone Number [facility] [place] [address] * Reticulocyte Count (11/08/2015 8:49 AM EDT) Reticulocyte % 1.8 0.5 - 2.4 % [facility] Retic Abs # 0.080 0.027 - 0.095 x10(6)/mcL [facility] Immature Retic% 8.8 2.3 - 15.9 % [facility] Reticulated Hgb 33.8 28.5 - 38.9 pg [facility] Immature Plt % 1.5 0.0 - 7.4 % [facility] Blood specimen (specimen) 11/08/2015 8:49 AM EDT 11/08/2015 8:53 AM EDT Narrative Resulting Agency Comment Spec In Lab Tal Eagle MD HEMATOLOGY ORDERA BLES Performing Organization Address City/[facility]/ZIP Co de Phone Number [facility] [place] [address] * Cholesterol, total (11/08/2015 8:49 AM EDT) Cholesterol, Total 187 <=199 mg/dL [facility] Comment: Recommendations of the NCEP Adult Treatment Panel for the following risk cutoff thresholds for the [place] population: Desirable: <200 mg/dL Borderline High: 200-239 mg/dL High: > or = 240 mg/dL Blood specimen (specimen) 11/08/2015 8:49 AM EDT 11/08/2015 8:53 AM EDT Narrative Resulting Agency Comment Spec In Lab Tal Eagle MD CHEMISTRY ORDERAB LES Performing Organization Address [facility] Co de Phone Number [facility] [place] [address] documented in this encounter Visit Diagnoses Diagnosis Kidney replaced by transplant documented in this encounter Care Teams Nurse Behavioral Health Care Relationship Specialty Start Date End Date Urbano Denis DO [facility] [address] [place] [address] PCP - General 09/03/12 03/17/22 Ruchi Valles RN Nurse Clinic Transplant Surgery 07/30/15 documented as of this encounter
--- OUTSIDE RECORDS SUMMARY | 2024-05-16 17:37 | XMS_ITS | Encounter Summary ---
Author Organization [facility] [place] [address] Care Team Providers Care Juvenile Counselor Name Role Phone Urbano Denis DO Primary Care Provider [phone] Encounter Details Date Type Department Care Team (Late st Contact Info) Description 10/26/2015 9:00 AM EDT Office [place] [address] Larry Larkin MD [facility] [place] [address] H/O kidney transplant Social History Tobacco Use [...] performed by Que Amaro MD at [facility] OR ??? Pro transplantation of kidney N/A 09/16/2015 @KIDNEY TRANSPLANT, WITHOUT RECIPIENT NEPHRECTOMY performed by Larry Larkin MD at [facility] OR ??? Pro transplant, prep cadaver renal graft N/A 09/16/2015 @PREPARATION CADAVERIC RENAL ALLOGRAFT performed by Larry Larkin MD at [facility] OR ??? N/A 09/16/2015 ORGAN ACQUISITION RENAL, CADAVERIC performed by Larry Larkin MD at [facility] OR Family History: No [...] Bell, RD - 10/26/2015 3:54 PM EDT [facility] Post Transplant Nutrition Follow Up Date: 10/26/2015 Patient: Cody Bolden Transplant Date: 09/16/15 Chinik organ UNOS diagnosis: Transplant: Mr. Cody Bolden [...] Value Date CHLPL 261* 10/26/2015 Assessment: This commercial real estate underwriter provided patient with a copy of [...] EST TH Visit (TeleHealth) Cardiology at [address] [phone] Byron Brown MD [facility] [place] [address] 07/14/2024 10:00 AM EST Hospital Encounter Non-Invasive [place] [address] Arrived documented as of this encounter Visit Diagnoses Diagnosis H/O kidney transplant Kidney replaced by transplant documented in this encounter Care Teams Juvenile Counselor Relationship Specialty Start Date End Date Urbano Denis DO [address] [place] [address] PCP - General 09/03/12 03/17/22 Ruchi Valles RN Nurse Clinic Transplant Surgery 07/30/15 documented as of this encounter
--- OUTSIDE RECORDS SUMMARY | 2024-05-16 17:37 | XMS_ITS | Encounter Summary ---
[place] [address] Care Team Providers Care Robotic Welding Operator Name Role Phone Urbano Denis DO Primary Care Provider [phone] Encounter Details Date Type Department Care Team (Latest Contact Info) Description 10/19/2015 7:23 PM EDT - 10/19/2015 11:59 PM EDT Hospital [place] [address] Discharge Disposition: Home Social History Tobacco Use [...] EST TH Visit (TeleHealth) Cardiology at [address] [phone] Byron Brown MD [facility] [place] [address] 07/14/2024 10:00 AM EST Hospital Encounter Non[place] [address] Arrived documented as of this encounter Procedures Procedure Name Priority Date/Time Associated Diagnosis Comments TACROLIMUS LEVEL Routine 10/19/2015 12:0 5 PM EDT documented in this encounter Results * Tacrolimus level (10/19/2015 12:05 PM EDT) Tacrolimus 7.9 ng/mL [facility] Comment:Trough therapeutic: 5-15 ng/mL Blood specimen (specimen) Venous Draw / Unknown 10/19/2015 12:05 PM EDT 10/22/2015 8:02 AM EDT Narrative Resulting Agency Comment Spec In Lab Tal Eagle MD CHEMISTRY ORDERAB LES [facility] [place] [address] documented in this encounter Visit Diagnoses Not on filedocumented in this encounter Care Teams Robotic Welding Operator Relationship Specialty Start Date End Date Urbano Denis DO [address] [place] [address] PCP - General 09/03/12 03/17/22 Ruchi Valles RN Nurse Clinic Transplant Surgery 07/30/15 documented as of this encounter
--- OUTSIDE RECORDS SUMMARY | 2024-05-16 17:37 | XMS_ITS | Encounter Summary ---
Author Organization [facility] [place] [address] Care Team Providers Care Geologist Name Role Phone AdeelUrbano Primary Care Provider [phone] Encounter Details Date Type Department Care Team (Late st Contact Info) Description 10/26/2015 Orders Only [place] [address] Dominique Jackson RN H/O kidney [...] EST TH Visit (TeleHealth) Cardiology at [address] [address] Byron Brown MD [facility] [place] [address] 07/14/2024 10:00 AM EST Hospital Encounter Non-[place] [address] Arrived documented as of this [...] Clear Clear [facility] Specific [place] Urine Automated 1.023 1.002 - 1.030 [facility] Color, Urine Dipstick Yellow Yellow [facility] RBC, Urine 5(H) 0 - 3 /HPF [facility] WBC, Urine 10(H) 0 - 3 /HPF [facility] Squamous Epithelial Cells, Urine <1 <=4 /HPF [facility] Hyaline Casts, Urine 3(H) 0 - 2 /LPF [facility] Reflex to Culture Yes [facility] Urine specimen (specimen) 10/26/2015 8:13 AM EDT 10/26/2015 8:17 AM EDT Narrative Resulting Agency Comment Spec In Lab Tal Eagle MD URINE ORDERABLES [facility] [place] [address] * (ABNORMAL) Comprehensive metabolic panel (non-fasting) (10/26/2015 8:10 AM EDT) Glucose 176 65 - 199 mg/dL [facility] Comment:Diabetes: >=200 mg/d L plus symptoms Blood Urea Nitrogen 17 10 - 20 mg/dL [facility] Creatinine 1.49 0.80 - 1.50 mg/dL [facility] [...] mmol/L [facility] Anion Gap 17(H) 5 - 15 mmol/L [facility] Calcium 9.2 8.5 - 10.5 mg/dL [facility] Protein, Total 7.5 6.1 - 8.0 gm/dL [facility] Albumin 4.3 3.2 - 5.2 gm/dL [facility] Aspartate Aminotransferase 19 0 - 39 unit/L [facility] Alanine Aminotransferase 29 0 - 55 unit/L [facility] Alkaline Phosphatase 86 40 - 120 unit/L [facility] Bilirubin, Total 1.0 0.2 - 1.3 mg/dL [facility] Bilirubin, Direct 0.2 0.0 - 0.3 mg/dL [facility] Est Glomerular Filtration Rate 47(L) [...] the following links into your internet browser. [email or web address] Blood specimen (specimen) 10/26/2015 8:10 AM EDT 10/26/2015 8:19 AM EDT Narrative Resulting Agency Comment Spec In Lab Tal Eagle MD CHEMISTRY ORDERAB LES Performing Organization Address [facility] Co de Phone Number [facility] [place] [address] * Uric acid (10/26/2015 8:10 AM EDT) Uric Acid 7.8 3.5 - 8.5 mg/dL [facility] Blood specimen (specimen) 10/26/2015 8:10 AM EDT 10/26/2015 8:19 AM EDT Narrative Resulting Agency Comment Spec In Lab Tal Eagle MD CHEMISTRY ORDERAB LES Performing Organization Address [facility] Co de Phone Number [facility] [place] [address] * Tacrolimus level (10/26/2015 8:10 AM EDT) Tacrolimus 11.4 ng/mL [facility] Comment:Trough therapeutic: 5-15 ng/mL Blood specimen (specimen) 10/26/2015 8:10 AM EDT 10/26/2015 10:39 AM EDT Narrative Resulting Agency Comment Spec In Lab Tal Eagle MD CHEMISTRY ORDERAB LES Performing Organization Address [facility] Co de Phone Number [facility] [place] [address] * (ABNORMAL) Magnesium (10/26/2015 8:10 AM EDT) Magnesium 0.58(L) 0.69 - 1.07 mmol/L [facility] Blood specimen (specimen) 10/26/2015 8:10 AM EDT 10/26/2015 8:19 AM EDT Narrative Resulting Agency Comment Spec In Lab Tal Eagle MD CHEMISTRY ORDERAB LES [facility] [place] [address] documented in this encounter Visit Diagnoses Diagnosis H/O kidney transplant Kidney replaced by transplant documented in this encounter Care Teams Geologist Relationship Specialty Start Date End Date Urbano Denis DO [address] [place] [address] PCP - General 09/03/12 03/17/22 Ruchi Valles RN Nurse Clinic Transplant Surgery 07/30/15 documented as of this encounter
--- OUTSIDE RECORDS SUMMARY | 2024-05-16 17:37 | XMS_ITS | Encounter Summary ---
Author Organization [facility] [place] [address] Care Team Providers Care Certified Activities Director Name Role Phone AdeelUrbano toscano Primary Care Provider [phone] Reason for Visit * Reason Onset Date Comments Medication Refill 10/17/2015 Encounter Details Date Type Department Care Team (Late st Contact Info) Description 10/17/2015 Refill [place] [address] Samia Escalante, RN Social History [...] AM EST Visit (TeleHealth) Cardiology at [address] [phone] Byron Brown MD [facility] [place] [address] 07/14/2024 10:00 AM EST Hospital Encounter Non-Invasive [place] [address] Arrived documented as of this encounter Visit Diagnoses Not on filedocumented in this encounter Care Teams Certified Activities Director Relationship Specialty Start Date End Date Urbano Denis DO [address] [place] [address] [address] [facility] [address] [place] [address] PCP - General 09/03/12 03/17/22 Ruchi Valles RN Nurse Clinic Transplant Surgery 07/30/15 documented as of this encounter
--- OUTSIDE RECORDS SUMMARY | 2024-05-16 17:37 | XMS_ITS | Encounter Summary ---
[place] [address] Care Team Providers Care Interior Surface Insulation Worker Name Role Phone Urbano Denis DO Primary Care Provider [phone] Reason for Visit * Surgical (Routine) - Closed Specialty Diagnoses / Procedures Referred By Humberto flor Referred To Contact Urology Procedures cysto stent removal Franko Larkin MD [facility] [place] [address] [facility] [place] [address] Referral ID Status Reason Start Date Expiration Date Visits Re quested Visits Authorized [id number] Closed 09/17/2015 09/16/2016 1 1 Encounter Details Date Type Department Care Team (Late st Contact Info) Description 10/26/2015 11:00 AM EDT [place] [address] Alex Patten MD [address] [place] [address] H/O kidney transplant Social History Tobacco Use [...] and cola. You do not need to [id number] ounces of water today. Urination: You will likely have a small amount of blood in your urine for the next several days. This is normal; however, if you are passing large amounts of blood clots or are unable to void please call our office at [phone] before 5PM or [phone] after hours. Please call if: * you have copious blood in your urine * fevers greater than 101.3 F * you are unable to void The number for questions is [phone] before 5 PM weekdays and [phone] after 5 PM and weekends. Follow-up: With [...] EST TH Visit (TeleHealth) Cardiology at [address] [address] Byron Brown MD [facility] [place] [address] 07/14/2024 10:00 AM EST Hospital Encounter Non-Invasive [place] [phone] Arrived Scheduled Orders Name Type Priority Associated Diagnoses Orde r Schedule Cystoscopy PROCEDURE Routine H/O kidney transplant Ordered: 10/26/2015 documented as of this encounter Visit Diagnoses Diagnosis H/O kidney transplant Kidney replaced by transplant documented in this encounter Care Teams Interior Surface Insulation Worker Relationship Specialty Start Date End Date Urbano Denis DO [address] [place] [address] PCP - General 09/03/12 03/17/22 Ruchi Valles RN Nurse Clinic Transplant Surgery 07/30/15 documented as of this encounter
--- OUTSIDE RECORDS SUMMARY | 2024-05-16 17:37 | XMS_ITS | Encounter Summary ---
Author Organization [facility] [place] [address] Care Team Providers Care Mother Baby Rn Name Role Phone Urbano Denis DO Primary Care Provider [phone] Encounter Details Date Type Department Care Team (Late st Contact Info) Description 11/12/2015 Telephone [place] [phone] Samia Escalante, RN Social History Tobacco Use [...] additional questions or concerns. Samia Escalante, RN [facility] Solid Organ Transplant [phone] (Pager: [phone]) documented in this encounter Plan of Treatment Upcoming Encounters Date Type Department Care Team (Late st Contact Info) Description 06/22/2024 11:00 AM EST TH Visit (TeleHealth) Cardiology at [address] [phone] Byron Brown MD [facility] [place] [address] 07/14/2024 10:00 AM EST Hospital Encounter Non[place] [phone] Arrived documented as of this encounter Visit Diagnoses Not on filedocumented in this encounter Care Teams Mother Baby Rn Relationship Specialty Start Date End Date Urbano Denis DO [address] [place] [address] [address] [facility] [address] [place] [address] PCP - General 09/03/12 03/17/22 Ruchi Valles RN Nurse Clinic Transplant Surgery 07/30/15 documented as of this encounter
--- OUTSIDE RECORDS SUMMARY | 2024-05-16 17:37 | XMS_ITS | Encounter Summary ---
Author Organization [facility] [address] Care Team Providers Care Stock Layer Name Role Phone Adeel Urbano KIRBY Primary Care Provider Encounter Details Date Type Department Care Team (Late st Contact Info) Description 11/12/2015 Telephone [place] [phone] Samia Escalante, RN Social History Tobacco Use [...] message asking for call-back. Samia Escalante, [facility] [place] [phone] (Pager: [phone]) documented in this encounter Plan of Treatment Upcoming Encounters Date Type Department Care Team (Late st Contact Info) Description 06/22/2024 11:00 AM EST TH Visit (TeleHealth) Cardiology at [address] [phone] Byron Brown MD [facility] [address] 07/14/2024 10:00 AM EST Hospital Encounter Non-Invasive [place] [phone] Arrived documented as of this encounter Visit Diagnoses Not on filedocumented in this encounter Care Teams Stock Layer Relationship Specialty Start Date End Date Urbano Denis DO [address] [place] [address] PCP - General 09/03/12 03/17/22 Ruchi Valles RN Nurse Clinic Transplant Surgery 07/30/15 documented as of this encounter
--- OUTSIDE RECORDS SUMMARY | 2024-05-16 17:37 | XMS_ITS | Encounter Summary ---
Author Organization [place] [address] Care Team Providers Care Director Content Marketing Name Role Phone Alban[place] Denis DO Primary Care Provider [phone] Reason for Referral * Consultation (Routine) - Closed Specialty Diagnoses / Procedures Referred By Humberto flor Referred To Contact Infectious Diseases Diagnoses Bacteremia due to Enterococcus Ramez Serrano [facility] [place] [address] Ramez Serrano [facility] [place] [address] Referral ID Status Reason Start Date Expiration Date V isits Requested Visits Authorized [id number] Closed Assume Subset of Care 11/16/2015 11/15/2016 1 1 Reason for Visit * Reason Comments Super SIRS Criteria kidney transplant x8 weeks ago * Auth/Cert Specialty Diagnoses / Procedures Referred By Contac t Referred To Contact Diagnoses Kidney transplant infection Referral ID Status Reason Start Date Expiration Date Visits Re quested Visits Authorized [id number] 1 1 Encounter Details Date Type Department Care Team (Latest Contact Info) Description 11/12/2015 2:00 PM EDT - 11/16/2015 5:34 PM EDT Hospital Encounter [address] [place] [address] Paola Colbert MD [facility] [place] [address] Tal Eagle MD [facility] [place] [address] Kidney transplant infection; Irregular heart rate; Bacteremia [...] Ethel Akins Patient Age: 65 y.o. Language: Colombian Race: White Ethnicity: Not nor Admit date: 11/12/2015 Discharge date and time: 11/16/2015 Attending Physician: Tal Eagle MD Discharge Physician: Tal Eagle MD Follow-up Recommendations for Providers: You will come back to Transplant Clinic on Thursday You will receive outpatient IV antibiotics for 2 weeks You will follow up with a Assayer, Dr. Brown, at the end of December regarding your irregular heart rhythym Inpatient Provider Contact Information: Solid Organ Transplant Department [address], [address] [place] [address] Discharge Diagnoses (Hospital Problems) and Secondary Diagnoses [...] arranged for followup with Dr. Brown, a Assayer who specializes in transplant patients. ANTIBIOTICS You [...] is a prescription for these procedures at [facility]. Your first dressing change and lab draw should happen on , November 22, 2015. Scheduled Appointments: You are scheduled to receive routine follow-up care in the transplant clinic: Solid Organ Transplant Department [facility] [address], [address] [place], [place] [id number] Future Appointments Future Appointments Date Time Provider [...] the message. You can also reach the personnel coordinator after hours by calling (ask for the personnel coordinator on-call). General Instructions Office of Care Management/Monorail Operator(CM) Home IV Antibiotic Therapy Referral Note. ??Office of Care Management/ Monorail Operator(CM) Infusion Room Referral for Outpatient IV [...] patient???s address.?? Patient requested referral to: 1. [facility] ? Infusion Suite (Jolly) ? Telephone call to Jolly at 12:00. ??Confirmed with Jolly availability of service. Documentation faxed to Infusion Room via edischarge as follows: OPAT and PICC garment liner protocol Patient to report to 1. [facility] in [facility] ? Infusion Suite (Jolly) ?on Thursday11/17/15 at (spouse Mara instructed to contact Jolly at above number to schedule time) time. Diabetic Status: Patient is not a diabetic. IV access: Type of line: right basilic vein PICC Date placed: 11/16/15 at 8:22 am CM signature ?? CM MAVERICK Alvarez, intake coordinator of Care Managemit pgr [phone] Future Appointments and Orders Future Appointments Provider Department Dept Phone 11/20/2015 9:00 AM TRANSPLANT, COORDINATOR Transplant [phone] 11/20/2015 10:00 AM Que Amaro MD Transplant [phone] 12/11/2015 9:30 AM LAB, THREE L [facility] Lab 12/11/2015 10:30 AM Tal Eagle MD Transplant [phone] 01/03/2016 3:30 PM Byron Brown MD Cardiology [phone] 01/04/2016 3:30 PM LAB, THREE L [facility] Lab 01/04/2016 4:30 PM Tulio Marcelo MD Gastroenterology [phone] 09/15/2016 9:00 AM LAB, THREE L [facility] Lab 09/15/2016 10:00 AM Tal Eagle MD Transplant [phone] Future Orders Complete By Expires OPAT: Order / Recommendation for Post Discharge IV Antibiotic Management [OOE175 CPT(R)] As directed Process Instructions: If no progress note charted, please enter Clinical details in comments. Scheduling Instructions: Comments: Please Fax all results to: OPAT Program Infectious Disease Section [facility] [place] [address] FAX: Line care instructions per [facility] OPAT Program protocol. After hours, please contact the Infectious Disease Physician employee communications manager at . If this order was signed greater than 72 hours prior to [facility] discharge, please call to confirm the accuracy [...] the transplant clinic: Solid Organ Transplant Department [facility] [address], [address] [place] [address] Future Appointments Date Time Provider Department Center [...] the message. You can also reach the personnel coordinator after hours by calling (ask for the personnel coordinator on-call). I reviewed all of the [...] 11/16/2015 12:56 PM EDT Office of Care Management/Monorail Operator(CM) Home IV Antibiotic Therapy Referral Note. ??Office of Care Management/ Monorail Operator(CM) Infusion Room Referral for Outpatient IV [...] patient???s address.?? Patient requested referral to: 1. [facility] ? Infusion Suite (Jolly) ? Telephone call to Jolly at 12:00. ??Confirmed with Jolly availability of service. Documentation faxed to Infusion Room via edischarge as follows: OPAT and PICC garment liner protocol Patient to report to 1. [facility] in [facility] ? Infusion Suite (Jolly) ?on Thursday11/17/15 at (spouse Mara instructed to contact Jolly at above number to schedule time) time. Diabetic Status: Patient is not a diabetic. IV access: Type of line: right basilic vein PICC Date placed: 11/16/15 at 8:22 am CM signature ?? CM MAVERICK Alvarez, intake coordinator of Care [facility] pgr [phone] * Patient Instructions* Merle Alva [...] arranged for followup with Dr. Brown, a Assayer who specializes in transplant patients. ANTIBIOTICS You [...] is a prescription for these procedures at [facility]. Your first dressing change and lab draw should happen on , November 22, 2015. Scheduled Appointments: You are scheduled to receive routine follow-up care in the transplant clinic: Solid Organ Transplant Department [facility], [address] [address] Future Appointments Future Appointments Date Time Provider [...] the message. You can also reach the personnel coordinator after hours by calling (ask for the personnel coordinator on-call). documented in this encounter Medications [...] left floor via wheelchair per staff. * Saima Escalante RN - 11/16/2015 4:58 PM EDT Adjusted medication schedule provided to patient and his . Orders faxed to [facility] for pt's PICC dressing changes. He has current standing orders for weekly draws and will use these next week forhis repeat CBC/CMP. Pt and understand the medication changes and plan for antibiotics and do not have questions atthis time. Samia Escalante, JADEN [facility] Solid Organ Transplant [phone] (Pager: [phone]) * Ramez Serrano DO - 11/16/2015 1:02 [...] office and reviewed with spouse Mara what [facility] would provide andwhat she would be responsible for including daily PICC saline flush between hanging new IV ABX and reconnecting pump to patient. Per Carli patient is in agreement with performing daily saline PICC flushes between changing IV ABX. [facility] has arrange for teaching patient and spouse Mara saline flush and changing IV ABX bag tomorrow 11/17/[address] Fung and floor nurse notified. MAVERICK Anne, intake coordinator of Care Management pgr [phone] * Claribel Roberts RN - 11/16/2015 11:09 AM EDT Office of Care Management Progress Note Office of Care Management/Monorail Operator(CM) Home IV Antibiotic Therapy Referral Note. Office of Care Management/ Monorail Operator(CM) Infusion Room Referral for Outpatient IV [...] patient???s address. Patient requested referral to: 1. [facility] Infusion Suite (Jolly) Telephone call to Jolly at 12:00. Confirmed with Jolly availability of service. Documentation faxed to Infusion Room via edischarge as follows: OPAT and PICC garment liner protocol Patient to report to 1. [facility] in [facility] Infusion Suite (Jolly) on Thursday11/17/15 at (spouse Mara instructed to contact Jolly at above number to schedule time) time. Diabetic Status: Patient is not a diabetic. IV access: Type of line: right basilic vein PICC Date placed: 11/16/15 at 8:22 am DEVORA signature MAVERICK Anne, intake coordinator of Care Managemnt pgr [phone] * Claribel Roberts RN - 11/16/2015 9:46 AM EDT Office of Care Management Discharge Progress Note Patient would benefit from acute/SNF/swing/LTAC rehab at discharge. Full Disclosure Statement provided, as appropriate. ?? Met with patient at bedside and left VM for spouse Mara. Provided [facility], Office of Care Management letter from the Outboard System Operator pertaining to rehab referrals.. ?? Reviewed levels of rehab including SNF, swing, acute and LTAC. ?? A list that serves the geographical area which the patient resides or the geographical area requested has been provided through [email or web address] search. ?? Requested patient and Mara provide at least three choices for referral. ?? Patient request referrals to: 1. [facility] swing bed 2. [facility] swing bed Note routed to Metal Technician who will communicate referrals to facilities via [employer] program. MAVERICK Anne, intake coordinator of Care Management pgr [phone] MAVERICK Anne, intake coordinator of Care Management pgr [phone] * Tal [...] PICC and plan for IV abx at [facility] infusion suite. CRC is working on [...] FATIMA MD Fellow, Infectious Disease 11/15/2015 Pager [phone] I have seen the patient and reviewed [...] with PICCand plan for IV abx at [facility] infusion suite. Start Calcitriol and increase Mag repletion today. Will talk to Francisco Brown (Transplant Assayer) about HR Immune suppression Cellcept 500mg BID [...] sheets attached to pt's chart. Notified by teletypesetter operator mid shift that pt had increase [...] states she prefers to drive patient to [facility] for out patient infusion if possible due to coverage issues. Spouse stated they are still paying on patient's home infusion bill from last time. CM notified Dr. Dereje Alcantara, of patient/spouse preference and payor barrier. CMcontacted [facility] ([phone], fax [phone]) spoke with Le and provided requested info: patient name, , insurance, home phone, MD. eL will contact patient to set-up out patient infusion times tomorrow upon receiving faxed MD order from ID.Dr. Dereje Alcantara notified. DEVORA Roberts, BSN, intake coordinator of Care Management pgr [phone] * Tal [...] EDT Office of Care Management (OCM) / Monorail Operator(CM)/ Initial Assessment Discussed patient with Provider [...] Lives with spouse Mara who was primary field care advocate post kidney transplant8 weeks ago. ADVANCE DIRECTIVES: None on file. Full Code. HEALTH /PRESCRIPTION COVERAGE: Active Insurance as of 11/12/2015 ? Primary Coverage ? Payor Plan Insurance Group Employer/Plan Group ? MEDICARE MEDICARE PART A & B ? Payor Plan Address Payor Plan Phone Number Effective From Effective To ? [address] [place] [address] 08/06/2013 ? [place] [address] ? Subscriber Name Subscriber Date Member ID ? ETHEL AKINS 1950 [id number] ? Secondary Coverage ? Payor Plan Insurance Group Employer/Plan Group ? [facility] OOS [facility] NATIONAL OOS PPO [id number] ? Payor Plan Address Payor Plan Phone Number Effective From Effective To ? [address] 11/03/2013 ? [place] [address] ? Subscriber Name Subscriber Date Member ID ? ETHEL AKINS 1950 [id number] ? Visit Level Coverage Information ? Payor Plan Plan Phone Plan [facility] ? MEDICARE MEDICARE PART A & B [phone] [place] [address]] [phone] ? CURRENT HOME/COMMUNITY SERVICES/EQUIPMENT: DME:[facility] - Not happy with 2/2 co-pay issues and delivery of supplies not used. Home Health Agency: [facility] - Not happy with 2/2 SN came 3 times and never came back or explained why services were no longer needed. Other: [facility] Transplant Organ Clinic INTELLECTUAL PROPERTY LEGAL ASSISTANT REFERRAL: Not needed at this time. PRIMARY CARE PHYSICIAN: ALBANIA DENIS, [address] / [place] [address] POTENTIAL DISCHARGE NEEDS: Spoke with patient Mara ([phone]) regarding possible discharge needs. Spouse stated she [...] assist with dischargeplanning while hospitalized MAVERICK Anne, intake coordinator of Care Management pgr [phone] * Tal Eagle MD - 11/13/2015 10:31 [...] gentleman s/p kidney transplant who presents to [facility] for fever, weakness, urinary incontinence. Bacteremia/UTI -BC/UC+ [...] -Diltiazem Shadi Wagner, Nephrology Fellow Pager # [phone] Case was d/w Dr. Eagle I reviewed [...] CADAVERIC performed by Franko Larkin MD at [facility] OR Allergies: No Known Allergies Home [...] 0.7 BILIDIR <0.1 Micro: ?? Urine culture [[id number]] (Abnormal) Collected: 11/08/15 0855 ? Lab Status: [...] mg daily Conrad Gray MD PGY-2 Pager #[phone] 11/12/2015 I reviewed all of the above [...] to the planned procedure. Hand Hygiene: The manager stars did perform hand hygiene prior to line insertion. Catheter type: PICC Lot number: [id number] Procedure Technique: Skin was prepped with chlorhexidine. [...] onset afib. Pt continues to be on physician executive. * Kitty Francisco RN - 11/12/2015 11:37 [...] Francisco RN - 11/12/2015 10:10 PM EDT Family Medicine Resident questioned by Dr Luu why cellcept and prograf doses had not been administered. Family Medicine Resident informed MD that these need to come [...] Francisco RN - 11/12/2015 9:40 PM EDT Family Medicine Resident spoke w/ pt's via phone who verbalized her frustration that her was still in the ED and that he had phoned her saying he was starving. Family Medicine Resident attempted to explain to woman the ED process and how a pt is admitted and the thought of being able to consume a diet w/o possibility of aspiration. Pt's continued to verbalize frustration about the process feeling noone has checked on my since I left. Family Medicine Resident attempted to reassure the . * Kitty Francisco RN - 11/12/2015 9:40 PM EDT PIV access to rt a/c dislodged; PIV 22g flushed well and abx reinitiated. * Kitty Francisco RN - 11/12/2015 9:20 PM EDT Family Medicine Resident reassessed pt who appeared to questionable for ability to eat meal provided. Pt appeared confused, but was appropriate to commands and questions. Family Medicine Resident noted that pt's EKG rhythm to have [...] 11/12/2015 5:30 PM EDT Pt's verbalized to board writer and Emily STANLEY about her frustration that her has not been assessed by MD's for admission and that he does not have a hospital room. She stated that when she asked the engine mechanic about taking the pt the [facility], she was instructed to come to [facility] ED. She was informed that surgery needed to see the pt for assessment for admission, she verbalized her frustrationthat the transplant team was not seeing him and that he was not being admitted sooner. She mentioned wanting to talk to Dr Eagle. This board writer and Emily STANLEY spoke w/ Dr [...] (PICC) Teaching Sheet Peripherally inserted central catheters (uamd-nu-gede) (PICC) are used when you need IV [...] midline catheter? PICC lines are used for contact lens cutter treatments. PICC lines may be used for [...] can be set up via the nurse Monorail Operator to help you. What are possible [...] Vascular Access Device Selection, Insertion, and Management, [employer] Access Systems 04/09. A Review of the Efficacy, Safety, Use, and Administration of Cathflo, [employer] 2005 * Plan of Care - [...] receive IV antibiotics at infusion suite at [facility]. Infectious Disease will need to fax the prescription for IV antibiotics to [phone]. * Plan of Care - Ethel Benitez [...] Potassium, phosphate, and magnesium replacements ordered. Per tax technician frequency of SVT runs has decreased since [...] at [facility] MAIN OR Social History and [...] continue to follow patient. Page us at [phone] with any further questions or concerns. Recommendations are above and were discussed with the primary treating team. ID will sign off. Please page if further consultation required. This patient was seen and discussed with ID attending Dr. Sarai FATIMA MD Fellow, Infectious Disease 11/13/2015 Pager [phone] I have seen the patient and reviewed [...] OUTCOME EVALUATION NOTE: OUTCOME SUMMARY: Patient to [facility] from ED at 0030 on 11/13/15. [...] EVALUATION: * Consult Note - Yeimi Vasquez [facility] - 11/12/2015 8:05 PM EDT Clinical Pharmacist Note-Vancomycin Ethel Akins [id number] Ethel Akins is a 65 y.o. [...] given now and followed by a dose [id number] mg every 24 hours, to start at [...] have. Alternately, during off-hours you may call [phone] to contact a pharmacist. YEIMI VASQUEZ RPH [...] EST TH Visit (TeleHealth) Cardiology at [address] [phone] Byron Brown MD [facility] [place] [address] 07/14/2024 10:00 AM EST Hospital Encounter Non-[place] [phone] Arrived Scheduled Referrals Name Type Priority Associated Diagnoses Orde r Schedule OPAT: Order / Recommendation for Post Discharge IV Antibiotic Management Outpatient Referral Routine Bacteremia due to Enterococcus Ordered: 11/16/2015 documented as of this encounter Procedures Procedure Name Priority Date/Time Associated Diagnosis Comments HEADER SETUP OPERATOR SCAN 11/17/2015 12:00 AM EDT POCT GLUCOSE [...] STAT 11/13/2015 4:43 PM EDT CARDIAC ENZYMES ([facility]) STAT 11/13/2015 4:30 PM EDT BLOOD CULTURE STAT 11/13/2015 4:30 PM EDT POCT GLUCOSE Routine 11/13/2015 4:27 PM EDT POCT GLUCOSE Routine 11/13/2015 11:29 AM EDT POCT GLUCOSE Routine 11/13/2015 8:12 AM EDT HEMOGRAM STAT 11/13/2015 7:30 AM EDT DIFFERENTIAL, AUTOMATED STAT 11/13/2015 7:30 AM EDT CARDIAC ENZYMES ([facility]) STAT 11/13/2015 7:30 AM EDT TACROLIMUS LEVEL [...] in this encounter Results * SCAN DOC: HEADER SETUP OPERATOR (11/17/2015 12:00 AM EDT) Anatomical Region Laterality Modality Other Scanning Provider MEDIA MGR SCAN EXT O RDR/RSLT * (ABNORMAL) POCT Glucose (11/16/2015 4:23 PM EDT) Glucose, POC 206(H) 65 - 199 mg/dL [facility] Comment: Supplemental ranges: <140 mg/dL before meals <180 mg/dL all other times of the day Blood specimen (specimen) 11/16/2015 4:23 PM EDT 11/16/2015 4:23 PM EDT Tal Eagle MD POINT OF CARE BOBY T ORDERABLES Performing Organization Address [facility] Co de Phone Number [facility] [place] [address] * POCT Glucose (11/16/2015 11:28 AM EDT) Glucose, POC 199 65 - 199 mg/dL [facility] Comment: Supplemental ranges: <140 mg/dL before meals <180 mg/dL all other times of the day Blood specimen (specimen) 11/16/2015 11:28 AM EDT 11/16/2015 11:28 AM EDT Tal Eagle MD POINT OF CARE BOBY T ORDERABLES Performing Organization Address [facility] Co de Phone Number [facility] [place] [address] * Place PICC Line: Contact Vascular Access Page [phone] Extremity to exclude: DO NOT use LEFT [...] to the planned procedure. Hand Hygiene: The manager stars did perform hand hygiene prior to line insertion. Catheter type: PICC Lot number: [id number] Procedure Technique: Skin was prepped with chlorhexidine. [...] * POCT Glucose (11/16/2015 7:18 AM EDT) [facility] Glucose, POC 169 65 - 199 mg/dL [facility] Comment: Supplemental ranges: <140 mg/dL before meals <180 mg/dL all other times of the day Blood specimen (specimen) 11/16/2015 7:18 AM EDT 11/16/2015 7:18 AM EDT Tal Eagle MD POINT OF CARE BOBY T ORDERABLES [facility] [place] [address] * Differential, Automated (11/16/2015 5:25 AM EDT) [facility] Neutrophil % 57.1 % [facility] Neutrophil Absolute 3.15 1.50 - 6.30 x10(3)/[facility] Lymph % 26.5 % [facility] Lymphocytes Abs 1.5 1.0 - 3.6 x10(3)/[facility] Monocyte % 12.7 % [facility] Monocyte Abs 0.7 0.2 - 1.0 x10(3)/[facility] Eos % 2.4 % [facility] Eosinophils Abs 0.1 0.0 - 0.5 x10(3)/[facility] Basophil % 0.9 % [facility] Baso Absolute 0.0 0.0 - 0.2 x10(3)/[facility] Immature Gran % 0.40 % [facility] Comment: Immature granulocytes(IG's)percentage and absolute count will include metamyelocytes, myelocytes, and promyelocytes. Blood smears from CBCs yielding IG's will be scanned manually for concordance. If this scan disagrees with the automated IG or if promyelocytes are noted, a manual differential will be performed. Immature Gran Absolute 0.02 0.00 - 0.05 x10(3)/[facility] Blood specimen (specimen) 11/16/2015 5:25 AM EDT 11/16/2015 5:32 AM EDT Narrative Resulting Agency Comment Spec In Lab Tal Eagle MD HEMATOLOGY ORDERA BLES [facility] [place] [address] * (ABNORMAL) Hemogram (11/16/2015 5:25 AM EDT) White Blood Cell 5.5 4.0 - 10.0 x10(3)/mc L [facility] Red Blood Cell 4.13(L) 4.63 - 6.08 x10(6)/mc L [facility] Hemoglobin 13.1(L) 13.7 - 17.5 gm/dL [facility] Hematocrit 37.8(L) 40.0 - 51.0 % [facility] Mean Cell Volume 91.5 79.0 - 92.0 fL [facility] Mean Cell Hemoglobin 31.7 25.6 - 32.2 pg [facility] Mean Cell Hemoglobin Concentration 34.7 32.0 - 36.5 gm/dL [facility] Platelet 233 145 - 370 x10(3)/ L [facility] RDW Standard Deviation 46.1(H) 35.0 - 46.0 fL [facility] RDW coefficient of variation 13.7 10.9 - 14.4 % [facility] Mean Platelet Volume 9.6 9.0 - 12.0 fL [facility] Blood specimen (specimen) 11/16/2015 5:25 AM EDT 11/16/2015 5:32 AM EDT Narrative Resulting Agency Comment Spec In Lab Tal Eagle MD HEMATOLOGY ORDERA BLES Performing Organization Address [facility]/ZIP Co de Phone Number [facility] [place] [address] * Blood culture (11/16/2015 5:25 AM EDT) Blood Culture No growth at 5 days. [facility] Blood specimen (specimen) STRUCTURE OF RIGHT HAND / Unknown 11/16/2015 5:25 AM EDT 11/16/2015 5:42 AM EDT Narrative Resulting Agency Comment Spec In Lab Tal Eagle MD MICROBIOLOGY - BL OOD ORDERABLES Performing Organization Address [facility] Co de Phone Number [facility] [place] [address] * (ABNORMAL) Phosphorus (11/16/2015 5:25 AM EDT) Phosphorus 2.3(L) 2.5 - 4.5 mg/dL [facility] Blood specimen (specimen) 11/16/2015 5:25 AM EDT 11/16/2015 5:32 AM EDT Narrative Resulting Agency Comment Spec In Lab Tal Eagle MD CHEMISTRY ORDERAB LES Performing Organization Address [facility] Co de Phone Number [facility] [place] [address] * (ABNORMAL) Magnesium (11/16/2015 5:25 AM EDT) Magnesium 0.62(L) 0.69 - 1.07 mmol/L [facility] Blood specimen (specimen) 11/16/2015 5:25 AM EDT 11/16/2015 5:32 AM EDT Narrative Resulting Agency Comment Spec In Lab Tal Eagle MD CHEMISTRY ORDERAB LES [facility] [place] [address] * (ABNORMAL) Basic Metabolic Panel (non-fasting) (11/16/2015 5:25 AM EDT) Glucose 146 65 - 199 mg/dL [facility] Comment:Diabetes: >=200 mg/d L plus symptoms Blood Urea Nitrogen 17 10 - 20 mg/dL [facility] Creatinine 1.36 0.80 - 1.50 mg/dL [facility] [...] questions. Chloride 104 98 - 107 mmol/L [facility] Carbon Dioxide 24 22 - 31 mmol/L [facility] Anion Gap 13 5 - 15 mmol/L [facility] Calcium 9.2 8.5 - 10.5 mg/dL [facility] Est Glomerular Filtration Rate 52(L) >=60 [facility] Comment: This [...] the following links into your internet browser. [email or web address] Blood specimen (specimen) 11/16/2015 5:25 AM EDT 11/16/2015 5:32 AM EDT Narrative Resulting Agency Comment Spec In Lab Tal Eagle MD CHEMISTRY ORDERAB LES Performing Organization Address City/[facility]/ZIP Co de Phone Number [facility] [place] [place] [address] * POCT Glucose (11/16/2015 4:15 AM EDT) Glucose, POC 139 65 - 199 mg/dL [facility] Comment: Supplemental ranges: <140 mg/dL before meals <180 mg/dL all other times of the day Blood specimen (specimen) 11/16/2015 4:15 AM EDT 11/16/2015 4:15 AM EDT Tal Eagle MD POINT OF CARE BOBY T ORDERABLES Performing Organization Address [facility] Co de Phone Number [facility] [place] [address] * POCT Glucose (11/15/2015 11:46 PM EDT) Glucose, POC 140 65 - 199 mg/dL [facility] Comment: Supplemental ranges: <140 mg/dL before meals <180 mg/dL all other times of the day Blood specimen (specimen) 11/15/2015 11:46 PM EDT 11/15/2015 11:46 PM EDT Tal Eagle MD POINT OF CARE BOBY T ORDERABLES [facility] [place] [address] * POCT Glucose (11/15/2015 7:19 PM EDT) Glucose, POC 199 65 - 199 mg/dL [facility] Comment: Supplemental ranges: <140 mg/dL before meals <180 mg/dL all other times of the day Blood specimen (specimen) 11/15/2015 7:19 PM EDT 11/15/2015 7:19 PM EDT Tal Eagle MD POINT OF CARE BOBY T ORDERABLES [facility] [place] [address] * POCT Glucose (11/15/2015 4:41 PM EDT) Glucose, POC 197 65 - 199 mg/dL [facility] Comment: Supplemental ranges: <140 mg/dL before meals <180 mg/dL all other times of the day Blood specimen (specimen) 11/15/2015 4:41 PM EDT 11/15/2015 4:41 PM EDT Tla Eagle MD POINT OF CARE BOBY T ORDERABLES [facility] [place] [address] * POCT Glucose (11/15/2015 12:00 PM EDT) Glucose, POC 177 65 - 199 mg/dL [facility] Comment: Supplemental ranges: <140 mg/dL before meals <180 mg/dL all other times of the day Blood specimen (specimen) 11/15/2015 12:00 PM EDT 11/15/2015 12:00 PM EDT Tal Eagle MD POINT OF CARE BOBY T ORDERABLES [facility] [place] [address] * POCT Glucose (11/15/2015 7:21 AM EDT) Pathologist [facility] Glucose, POC 132 65 - 199 mg/dL [facility] Comment: Supplemental ranges: <140 mg/dL before meals <180 mg/dL all other times of the day Blood specimen (specimen) 11/15/2015 7:21 AM EDT 11/15/2015 7:21 AM EDT Tal Eagle MD POINT OF CARE BOBY T ORDERABLES [facility] [place] [address] * Differential, Automated (11/15/2015 6:14 AM EDT) [facility] Neutrophil % 67.5 % [facility] Neutrophil Absolute 4.24 1.50 - 6.30 x10(3)/[facility] LAB[facility] Lymph % 18.0 % [facility] Lymphocytes Abs 1.1 1.0 - 3.6 x10(3)/[facility] LABORATORY Monocyte % 12.9 % [facility] Monocyte Abs 0.8 0.2 - 1.0 x10(3)/[facility] LABORATORY Eos % 0.8 % [facility] Eosinophils Abs 0.0 0.0 - 0.5 x10(3)/[facility] LAB[facility]ORY Basophil % 0.5 % [facility] Baso Absolute 0.0 0.0 - 0.2 x10(3)/[facility] LAB[facility]ORY Immature Gran % 0.30 % [facility] Comment: Immature granulocytes(IG's)percentage and absolute count will include metamyelocytes, myelocytes, and promyelocytes. Blood smears from CBCs yielding IG's will be scanned manually for concordance. If this scan disagrees with the automated IG or if promyelocytes are noted, a manual differential will be performed. Immature Gran Absolute 0.02 0.00 - 0.05 x10(3)/[facility] Blood specimen (specimen) 11/15/2015 6:14 AM EDT 11/15/2015 6:34 AM EDT Narrative Resulting Agency Comment Spec In Lab Tal Eagle MD HEMATOLOGY ORDERA BLES Performing Organization Address City/[facility]/ZIP Co de Phone Number [facility] [place] [address] * (ABNORMAL) Hemogram (11/15/2015 6:14 AM EDT) White Blood Cell 6.3 4.0 - 10.0 x10(3)/mc L [facility] Red Blood Cell 3.97(L) 4.63 - 6.08 x10(6)/mc L [facility] Hemoglobin 12.8(L) 13.7 - 17.5 gm/dL [facility] Hematocrit 36.0(L) 40.0 - 51.0 % [facility] Mean Cell Volume 90.7 79.0 - 92.0 fL [facility] Mean Cell Hemoglobin 32.2 25.6 - 32.2 pg [facility] Mean Cell Hemoglobin Concentration 35.6 32.0 - 36.5 gm/dL [facility] Platelet 215 145 - 370 x10(3)/mc L [facility] RDW Standard Deviation 45.6 35.0 - 46.0 fL [facility] RDW coefficient of variation 13.7 10.9 - 14.4 % [facility] Mean Platelet Volume 9.8 9.0 - 12.0 fL [facility] Blood specimen (specimen) 11/15/2015 6:14 AM EDT 11/15/2015 6:34 AM EDT Narrative Resulting Agency Comment Spec In Lab Tal Eagle MD HEMATOLOGY ORDERA BLES Performing Organization Address City/[facility]/ZIP Co de Phone Number [facility] [place] [address] * Blood culture (11/15/2015 6:14 AM EDT) Blood Culture No growth at 5 days. [facility] Blood specimen (specimen) STRUCTURE OF RIGHT HAND / Unknown 11/15/2015 6:14 AM EDT 11/15/2015 7:39 AM EDT Narrative Resulting Agency Comment Spec In Lab Tal Eagle MD MICROBIOLOGY - BL OOD ORDERABLES Performing Organization Address City/[facility]/ZIP Co de Phone Number [facility] [place] [address] * (ABNORMAL) Phosphorus (11/15/2015 6:14 AM EDT) [facility] Phosphorus 1.8(L) 2.5 - 4.5 mg/dL [facility] Blood specimen (specimen) 11/15/2015 6:14 AM EDT 11/15/2015 6:34 AM EDT Narrative Resulting Agency Comment Spec In Lab Tal Eagle MD CHEMISTRY ORDERAB LES Performing Organization Address [facility] Co de Phone Number [facility] [place] [address] * (ABNORMAL) Magnesium (11/15/2015 6:14 AM EDT) Pathologist [facility] Magnesium 0.55(L) 0.69 - 1.07 mmol/L [facility] Blood specimen (specimen) 11/15/2015 6:14 AM EDT 11/15/2015 6:34 AM EDT Narrative Resulting Agency Comment Spec In Lab Tal Eagle MD CHEMISTRY ORDERAB LES Performing Organization Address [facility] Co de Phone Number [facility] [place] [address] * (ABNORMAL) Basic Metabolic Panel (non-fasting) (11/15/2015 6:14 AM EDT) Glucose 139 65 - 199 mg/dL [facility] Comment:Diabetes: >=200 mg/d L plus symptoms Blood Urea Nitrogen 12 10 - 20 mg/dL [facility] Creatinine 1.28 0.80 - 1.50 mg/dL [facility] Comment: Please note that the pediatric reference intervals supplied above were not validated at [facility]. Results from pediatric patients should be interpreted in conjunction to the patient's age, height and muscle mass. Sodium 138 135 - 145 mmol/L [facility] Potassium 4.1 3.5 - 5.0 mmol/L [facility] Comment: Please note: ??Patients with WBC >100,000 may have falsely elevated Potassium levels. ??For accurate Potassium quantification in these patients send serum separator tube (gold top) for subsequent determinations. ??Contact the Clinical Chemistry Laboratory if there are any questions. Chloride 102 98 - 107 mmol/L [facility] Carbon Dioxide 23 22 - 31 mmol/L [facility] Anion Gap 13 5 - 15 mmol/L [facility] Calcium 8.6 8.5 - 10.5 mg/dL [facility] Est Glomerular Filtration Rate 56(L) >=60 [facility] Comment: This [...] the following links into your internet browser. [email or web address] Blood specimen (specimen) 11/15/2015 6:14 AM EDT 11/15/2015 6:34 AM EDT Narrative Resulting Agency Comment Spec In Lab Tal Eagle MD CHEMISTRY ORDERAB LES [facility] [place] [address] * POCT Glucose (11/15/2015 4:29 AM EDT) Glucose, POC 127 65 - 199 mg/dL [facility] Comment: Supplemental ranges: <140 mg/dL before meals <180 mg/dL all other times of the day Blood specimen (specimen) 11/15/2015 4:29 AM EDT 11/15/2015 4:29 AM EDT Tal Eagle MD POINT OF CARE BOBY T ORDERABLES [facility] [place] [address] * POCT Glucose (11/15/2015 12:21 AM EDT) Glucose, POC 145 65 - 199 mg/dL [facility] Comment: Supplemental ranges: <140 mg/dL before meals <180 mg/dL all other times of the day Blood specimen (specimen) 11/15/2015 12:21 AM EDT 11/15/2015 12:21 AM EDT Tal Eagle MD POINT OF CARE BOBY T ORDERABLES Performing Organization Address [facility] Co de Phone Number [facility] [place] [address] * (ABNORMAL) POCT Glucose (11/14/2015 7:12 PM EDT) Glucose, POC 206(H) 65 - 199 mg/dL [facility] Comment: Supplemental ranges: <140 mg/dL before meals <180 mg/dL all other times of the day Blood specimen (specimen) 11/14/2015 7:12 PM EDT 11/14/2015 7:12 PM EDT Tal Eagle MD POINT OF CARE BOBY T ORDERABLES Performing Organization Address City/[facility]/ZIP Co de Phone Number [facility] [place] [address] * EKG 12 Lead (11/14/2015 5:24 PM EDT) Ventricular rate 73 BPM MUSE SYSTEM Atrial Rate 73 BPM MUSE SYSTEM P-R Interval 160 ms MUSE SYSTEM QRS Duration 100 ms MUSE SYSTEM Q-T Interval 376 ms MUSE SYSTEM QTC Calculated (Bezet) 414 ms MUSE SYSTEM Calculated P [place] 60 degrees MUSE SYSTEM Calculated R [place] -55 degrees MUSE SYSTEM Calculated T [place] -8 degrees MUSE SYSTEM INTERPRETATION Sinus [...] Eagle MD ECG ORDERABLES Performing Organization Address City/[facility]/ZIP Co de Phone Number MUSE SYSTEM * POCT Glucose (11/14/2015 3:55 PM EDT) Glucose, POC 176 65 - 199 mg/dL [facility] Comment: Supplemental ranges: <140 mg/dL before meals <180 mg/dL all other times of the day Blood specimen (specimen) 11/14/2015 3:55 PM EDT 11/14/2015 3:55 PM EDT Tal Eagle MD POINT OF CARE BOBY T ORDERABLES [facility] [place] [address] * US Renal Transplant Left (11/14/2015 1:51 [...] 02:19 pm) Patient Info ID #: ? [id number] ? : [birth year] (65 yrs) Name: ? ETHEL Gomez MABLE ? Visit Date:11/14/2015 01:51 pm Performed By Performed By: ? Jessee Espinal RDMS Attending: ?Kerry GERBER, Jolly Gomez. Referred By: ?ALBANIA SCHMID MD Service(s) Provided ??URTPL - Ultrasound Renal Transplant - Left - [id number] Indications ??admitted with UTI, rule out abscess [...] Final 11/14/2015 02:19pm) Patient Info ID #: [id number] : [birth year] (65 yrs) Name: ETHEL MERIDARAMÓN Visit Date:11/14/2015 01:51 pm Performed By Performed By: Jessee Espinal RDMS Attending: Jolly Payne MD Referred By: ALBANIA SCHMID MD Service(s) Provided URTPL - Ultrasound Renal Transplant - Left - [id number] Indications admitted with UTI, rule out abscess [...] POCT Glucose (11/14/2015 11:58 AM EDT) Pathologist [facility] Glucose, POC 134 65 - 199 mg/dL [facility] Comment: Supplemental ranges: <140 mg/dL before meals <180 mg/dL all other times of the day Blood specimen (specimen) 11/14/2015 11:58 AM EDT 11/14/2015 11:58 AM EDT Tal Eagle MD POINT OF CARE BOBY T ORDERABLES Performing Organization Address City/[facility] Co de Phone Number [facility] [place] [address] * Tacrolimus level (11/14/2015 9:42 AM EDT) Tacrolimus 9.0 ng/mL [facility] Comment:Trough therapeutic: 5-15 ng/mL Blood specimen (specimen) 11/14/2015 9:42 AM EDT 11/14/2015 10:48 AM EDT Narrative Resulting Agency Comment Spec In Lab Tal Eagle MD CHEMISTRY ORDERAB LES Performing Organization Address [facility] Co de Phone Number [facility] [place] [address] * (ABNORMAL) POCT Glucose (11/14/2015 7:26 AM EDT) Glucose, POC 201(H) 65 - 199 mg/dL [facility] Comment: Supplemental ranges: <140 mg/dL before meals <180 mg/dL all other times of the day Blood specimen (specimen) 11/14/2015 7:26 AM EDT 11/14/2015 7:26 AM EDT Tal Eagle MD POINT OF CARE BOBY T ORDERABLES Performing Organization Address [facility] Co de Phone Number [facility] [place] [address] * (ABNORMAL) Phosphorus (11/14/2015 5:18 AM EDT) Phosphorus 1.6(L) 2.5 - 4.5 mg/dL [facility] Blood specimen (specimen) Venous Draw / Unknown 11/14/2015 5:18 AM EDT 11/14/2015 6:05 AM EDT Narrative Resulting Agency Comment Spec In Lab Tal Eagle MD CHEMISTRY ORDERAB LES Performing Organization Address City/[facility]/ZIP Co de Phone Number [facility] [place] [address] * (ABNORMAL) Magnesium (11/14/2015 5:18 AM EDT) Magnesium 0.59(L) 0.69 - 1.07 mmol/L [facility] Blood specimen (specimen) Venous Draw / Unknown 11/14/2015 5:18 AM EDT 11/14/2015 6:05 AM EDT Narrative Resulting Agency Comment Spec In Lab Tal Eagle MD CHEMISTRY ORDERAB LES Performing Organization Address [facility] Co de Phone Number [facility] [place] [address] * Blood culture (11/14/2015 5:18 AM EDT) [facility] Blood Culture No growth at 5 days. [facility] Blood specimen (specimen) STRUCTURE OF RIGHT HAND / Unknown 11/14/2015 5:18 AM EDT 11/14/2015 7:35 AM EDT Narrative Resulting Agency Comment Spec In Lab Tal Eagle MD MICROBIOLOGY - BL OOD ORDERABLES Performing Organization Address City/[facility]/ZIP Co de Phone Number [facility] [place] [address] * (ABNORMAL) Differential, Automated (11/14/2015 5:18 AM EDT) Neutrophil % 79.9 % [facility] Neutrophil Absolute 6.85(H) 1.50 - 6.30 x10(3)/mc L [facility] Lymph % 9.8 % [facility] Lymphocytes Abs 0.8(L) 1.0 - 3.6 x10(3)/mc L [facility] Monocyte % 9.5 % [facility] Monocyte Abs 0.8 0.2 - 1.0 x10(3)/[facility] LABOR[facility] Eos % 0.2 % [facility] Eosinophils Abs 0.0 0.0 - 0.5 x10(3)/[facility] Basophil % 0.2 % [facility] Baso Absolute 0.0 0.0 - 0.2 x10(3)/[facility]OR[facility] Immature Gran [...] Immature Gran Absolute 0.03 0.00 - 0.05 x10(3)/[facility] Blood specimen (specimen) 11/14/2015 5:18 AM EDT 11/14/2015 6:05 AM EDT Narrative Resulting Agency Comment Spec In Lab Tal Eagle MD HEMATOLOGY ORDERA BLES [facility] [place] [address] * (ABNORMAL) Hemogram (11/14/2015 5:18 AM EDT) White Blood Cell 8.6 4.0 - 10.0 x10(3)/[facility] Red Blood Cell 4.18(L) 4.63 - 6.08 x10(6)/[facility] Hemoglobin 13.2(L) 13.7 - 17.5 gm/dL [facility] Hematocrit 38.0(L) 40.0 - 51.0 % [facility] Mean Cell Volume 90.9 79.0 - 92.0 fL [facility] Mean Cell Hemoglobin 31.6 25.6 - 32.2 pg [facility] Mean Cell Hemoglobin Concentration 34.7 32.0 - 36.5 gm/dL [facility] Platelet 223 145 - 370 x10(3)/mc L [facility] RDW Standard Deviation 47.4(H) 35.0 - 46.0 fL [facility] RDW coefficient of variation 14.3 10.9 - 14.4 % [facility] Mean Platelet Volume 9.6 9.0 - 12.0 fL [facility] Blood specimen (specimen) 11/14/2015 5:18 AM EDT 11/14/2015 6:05 AM EDT Narrative Resulting Agency Comment Spec In Lab Tal Eagle MD HEMATOLOGY ORDERA BLES [facility] [place] [address] * (ABNORMAL) Basic Metabolic Panel (non-fasting) (11/14/2015 5:18 AM EDT) Glucose 168 65 - 199 mg/dL [facility] Comment:Diabetes: >=200 mg/d L plus symptoms Blood Urea Nitrogen 13 10 - 20 mg/dL [facility] Creatinine 1.47 0.80 - 1.50 mg/dL [facility] Comment: Please note that the pediatric reference intervals supplied above were not validated at [facility]. Results from pediatric patients should be interpreted in conjunction to the patient's age, height and muscle mass. Sodium 135 135 - 145 mmol/L [facility] Potassium 3.9 3.5 - 5.0 mmol/L [facility] Comment: Please note: ??Patients with WBC >100,000 may have falsely elevated Potassium levels. ??For accurate Potassium quantification in these patients send serum separator tube (gold top) for subsequent determinations. ??Contact the Clinical Chemistry Laboratory if there are any questions. Chloride 98 98 - 107 mmol/L [facility] Carbon Dioxide 23 22 - 31 mmol/L [facility] Anion Gap 14 5 - 15 mmol/L [facility] Calcium 8.7 8.5 - 10.5 mg/dL [facility] Est Glomerular Filtration Rate 48(L) >=60 [facility] Comment: This [...] the following links into your internet browser. [email or web address] Blood specimen (specimen) 11/14/2015 5:18 AM EDT 11/14/2015 6:05 AM EDT Narrative Resulting Agency Comment Spec In Lab Tal Eagle MD CHEMISTRY ORDERAB LES Performing Organization Address City/[facility] Co de Phone Number [facility] [place] [address] * POCT Glucose (11/14/2015 4:25 AM EDT) Glucose, POC 159 65 - 199 mg/dL [facility] Comment: Supplemental ranges: <140 mg/dL before meals <180 mg/dL all other times of the day Blood specimen (specimen) 11/14/2015 4:25 AM EDT 11/14/2015 4:25 AM EDT Tal Eagle MD POINT OF CARE BOBY T ORDERABLES Performing Organization Address City/[facility]/ZIP Co de Phone Number [facility] [place] [address] * POCT Glucose (11/14/2015 12:12 AM EDT) Glucose, POC 180 65 - 199 mg/dL [facility] Comment: Supplemental ranges: <140 mg/dL before meals <180 mg/dL all other times of the day Blood specimen (specimen) 11/14/2015 12:12 AM EDT 11/14/2015 12:12 AM EDT Tal Eagle MD POINT OF CARE BOBY T ORDERABLES [facility] [place] [address] * POCT Glucose (11/13/2015 8:13 PM EDT) Glucose, POC 182 65 - 199 mg/dL [facility] Comment: Supplemental ranges: <140 mg/dL before meals <180 mg/dL all other times of the day Blood specimen (specimen) 11/13/2015 8:13 PM EDT 11/13/2015 8:13 PM EDT Tal Eagle MD POINT OF CARE BOBY T ORDERABLES Performing Organization Address City/[facility]/ZIP Co de Phone Number [facility] [place] [address] * POCT Glucose (11/13/2015 7:02 PM EDT) Glucose, POC 153 65 - 199 mg/dL [facility] Comment: Supplemental ranges: <140 mg/dL before meals <180 mg/dL all other times of the day Blood specimen (specimen) 11/13/2015 7:02 PM EDT 11/13/2015 7:02 PM EDT Tal Eagle MD POINT OF CARE BOBY T ORDERABLES [facility] [place] [address] * Blood culture (11/13/2015 4:43 PM EDT) Blood Culture No growth at 5 days. [facility] Blood specimen (specimen) 11/13/2015 4:43 PM EDT 11/13/2015 5:11 PM EDT Comment:RH Narrative Resulting Agency Comment Spec In Lab Tal Eagle MD MICROBIOLOGY - BL OOD ORDERABLES Performing Organization Address City/[facility]/ZIP Co de Phone Number [facility] [place] [address] * Blood culture (11/13/2015 4:30 PM EDT) Blood Culture No growth at 5 days. [facility] Blood specimen (specimen) 11/13/2015 4:30 PM EDT 11/13/2015 5:11 PM EDT Comment:RA Narrative Resulting Agency Comment Spec In Lab Tal Eagle MD MICROBIOLOGY - BL OOD ORDERABLES Performing Organization Address [facility] Co de Phone Number [facility] [place] [address] * (ABNORMAL) Cardiac Enzymes (11/13/2015 4:30 PM EDT) Pathologist [facility] Troponin-T <0.03 <=0.03 ng/mL [facility] Comment: 0.03 ng/mL: Represents the 99th percentile upper reference limit for normals. >0.03 ng/mL: Elevated cardiac troponin T level indicative of myocardial damage. Diagnosis of acute, evolving or recent HI requires a typical rise and gradual fall [...] consensus document of the Joint Society of Cardiology/[place] [employer] Committee for the redefinition of myocardial infarction. ??Journal of the [place] [employer] 2000; 36: 959-969] Creatine Kinase 277(H) 0 - 200 unit/L [facility] Blood specimen (specimen) 11/13/2015 4:30 PM EDT 11/13/2015 4:50 PM EDT Narrative Resulting Agency Comment Spec In Lab Tal Eagle MD CHEMISTRY ORDERAB LES [facility] [place] [address] * POCT Glucose (11/13/2015 4:27 PM EDT) Glucose, POC 185 65 - 199 mg/dL [facility] Comment: Supplemental ranges: <140 mg/dL before meals <180 mg/dL all other times of the day Blood specimen (specimen) 11/13/2015 4:27 PM EDT 11/13/2015 4:27 PM EDT Tal Eagle MD POINT OF CARE BOBY T ORDERABLES Performing Organization Address [place] Hospital/ZIP Co de Phone Number [facility] [place] [address] * POCT Glucose (11/13/2015 11:29 AM EDT) Glucose, POC 184 65 - 199 mg/dL [facility] Comment: Supplemental ranges: <140 mg/dL before meals <180 mg/dL all other times of the day Blood specimen (specimen) 11/13/2015 11:29 AM EDT 11/13/2015 11:29 AM EDT Tal Eagle MD POINT OF CARE BOBY T ORDERABLES Performing Organization Address City/[facility]/ZIP Co de Phone Number [facility] [place] [address] * (ABNORMAL) POCT Glucose (11/13/2015 8:12 AM EDT) Glucose, POC 228(H) 65 - 199 mg/dL [facility] Comment: Supplemental ranges: <140 mg/dL before meals <180 mg/dL all other times of the day Blood specimen (specimen) 11/13/2015 8:12 AM EDT 11/13/2015 8:12 AM EDT Tal Eagle MD POINT OF CARE BOBY T ORDERABLES Performing Organization Address [facility] Co de Phone Number [facility] [place] [address] * (ABNORMAL) Phosphorus (11/13/2015 7:30 AM EDT) Phosphorus 1.6(L) 2.5 - 4.5 mg/dL [facility] Blood specimen (specimen) Venous Draw / Unknown 11/13/2015 7:30 AM EDT 11/13/2015 7:52 AM EDT Narrative Resulting Agency Comment Spec In Lab Tal Eagle MD CHEMISTRY ORDERAB LES Performing Organization Address [facility] Co de Phone Number [facility] [place] [address] * (ABNORMAL) Magnesium (11/13/2015 7:30 AM EDT) Magnesium 0.40(L) 0.69 - 1.07 mmol/L [facility] Blood specimen (specimen) Venous Draw / Unknown 11/13/2015 7:30 AM EDT 11/13/2015 7:52 AM EDT Narrative Resulting Agency Comment Spec In Lab Tal Eagle MD CHEMISTRY ORDERAB LES Performing Organization Address [facility] Co de Phone Number [facility] [place] [address] * Cardiac Enzymes (11/13/2015 7:30 AM EDT) Troponin-T <0.03 <=0.03 ng/mL [facility] Comment: 0.03 ng/mL: Represents the 99th percentile upper reference limit for normals. >0.03 ng/mL: Elevated cardiac troponin T level indicative of myocardial damage. Diagnosis of acute, evolving or recent HI requires a typical rise and gradual fall [...] consensus document of the Joint Society of Cardiology/[place] College [employer] Cardiology Committee for the redefinition of myocardial infarction. ??Journal of the [place] College of Cardiology 2000; 36: 959-969] Creatine Kinase 193 0 - 200 unit/L [facility] Comment:result rechecked-mkf Blood specimen (specimen) Venous Draw / Unknown 11/13/2015 7:30 AM EDT 11/13/2015 7:52 AM EDT Narrative Resulting Agency Comment Spec In Lab Tal Eagle MD CHEMISTRY ORDERAB LES Performing Organization Address City/State/[facility] Co de Phone Number [facility] [place] [address] * (ABNORMAL) Differential, Automated (11/13/2015 7:30 AM EDT) Neutrophil % 86.3 % [facility] Neutrophil Absolute 8.26(H) 1.50 - 6.30 x10(3)/mc L [facility] Lymph % 6.9 % [facility] Lymphocytes Abs 0.7(L) 1.0 - 3.6 x10(3)/mc L [facility] Monocyte % 6.2 % [facility] Monocyte Abs 0.6 0.2 - 1.0 x10(3)/mc L [facility] Eos % 0.1 % [facility] Eosinophils Abs 0.0 0.0 - 0.5 x10(3)/mc L [facility] Basophil % 0.2 % [facility] Baso Absolute 0.0 0.0 - 0.2 x10(3)/mc L [facility] Immature Gran % 0.30 % [facility] Comment: Immature granulocytes(IG's)percentage and absolute count will include metamyelocytes, myelocytes, and promyelocytes. Blood smears from CBCs yielding IG's will be scanned manually for concordance. If this scan disagrees with the automated IG or if promyelocytes are noted, a manual differential will be performed. Immature Gran Absolute 0.03 0.00 - 0.05 x10(3)/[facility] Blood specimen (specimen) 11/13/2015 7:30 AM EDT 11/13/2015 7:52 AM EDT Narrative Resulting Agency Comment Spec In Lab Tal Eagle MD HEMATOLOGY ORDERA BLES [facility] [place] [address] * (ABNORMAL) Hemogram (11/13/2015 7:30 AM EDT) White Blood Cell 9.6 4.0 - 10.0 x10(3)/[facility] Red Blood Cell 4.00(L) 4.63 - 6.08 x10(6)/ L [facility] Hemoglobin 13.0(L) 13.7 - 17.5 gm/dL [facility] Hematocrit 36.3(L) 40.0 - 51.0 % [facility] Mean Cell Volume 90.8 79.0 - 92.0 fL [facility] Mean Cell Hemoglobin 32.5(H) 25.6 - 32.2 pg [facility] Mean Cell Hemoglobin Concentration 35.8 32.0 - 36.5 gm/dL [facility] Platelet 214 145 - 370 x10(3)/[facility] RDW Standard Deviation 46.6(H) 35.0 - 46.0 fL [facility] RDW coefficient of variation 14.0 10.9 - 14.4 % [facility] Mean Platelet Volume 9.4 9.0 - 12.0 fL [facility] Blood specimen (specimen) 11/13/2015 7:30 AM EDT 11/13/2015 7:52 AM EDT Narrative Resulting Agency Comment Spec In Lab Tal Eagle MD HEMATOLOGY ORDERA BLES [facility] [place] [address] * (ABNORMAL) Basic Metabolic Panel (non-fasting) (11/13/2015 7:30 AM EDT) Glucose 238(H) 65 - 199 mg/dL [facility] Comment:Diabetes: >=200 mg/d L plus symptoms Blood Urea Nitrogen 16 10 - 20 mg/dL [facility] Creatinine 1.71(H) 0.80 - 1.50 mg/dL [facility] Comment: Please note that the pediatric reference intervals supplied above were not validated at [facility]. Results from pediatric patients should be interpreted in conjunction to the patient's age, height and muscle mass. Sodium 133(L) 135 - 145 mmol/L [facility] Potassium 3.0(Criti raulito) 3.5 - 5.0 mmol/L [facility] Comment: Results rechecked-mkf Called [...] mmol/L [facility] Carbon Dioxide 21(L) 22 - 31 mmol/L [facility] Anion Gap 14 5 - 15 mmol/L [facility] Calcium 8.2(L) 8.5 - 10.5 mg/dL [facility] Comment:result rechecked-mkf Est Glomerular Filtration Rate 40(L) >=60 [facility] Comment: This [...] the following links into your internet browser. [email or web address] Blood specimen (specimen) 11/13/2015 7:30 AM EDT 11/13/2015 7:52 AM EDT Narrative Resulting Agency Comment Spec In Lab aTl Eagle MD CHEMISTRY ORDERAB LES Performing Organization Address City/[facility]/ZIP Co de Phone Number [facility] [place] [address] * Tacrolimus level (11/13/2015 7:30 AM EDT) Tacrolimus 10.7 ng/mL [facility] Comment:Trough therapeutic: 5-15 ng/mL Blood specimen (specimen) 11/13/2015 7:30 AM EDT 11/13/2015 11:08 AM EDT Narrative Resulting Agency Comment Spec In Lab Tal Eagle MD CHEMISTRY ORDERAB LES Performing Organization Address City/[facility]/ZIP Co de Phone Number [facility] [place] [address] * POCT Glucose (11/13/2015 3:47 AM EDT) Glucose, POC 162 65 - 199 mg/dL [facility] Comment: Supplemental ranges: <140 mg/dL before meals <180 mg/dL all other times of the day Blood specimen (specimen) 11/13/2015 3:47 AM EDT 11/13/2015 3:47 AM EDT Tal Eagle MD POINT OF CARE BOBY T ORDERABLES Performing Organization Address [facility] Co de Phone Number [facility] [place] [address] * Cardiac Enzymes (11/13/2015 12:10 AM EDT) [facility] Troponin-T <0.03 <=0.03 ng/mL [facility] Comment: 0.03 ng/mL: Represents the 99th percentile upper reference limit for normals. >0.03 ng/mL: Elevated cardiac troponin T level indicative of myocardial damage. Diagnosis of acute, evolving or recent HI requires a typical rise and gradual fall [...] consensus document of the Joint Society of Cardiology/[place] College of Cardiology Committee for the redefinition of myocardial infarction. ??Journal of the [place] College of Cardiology 2000; 36: 959-969] Creatine Kinase 110 0 - 200 unit/L [facility] Blood specimen (specimen) 11/13/2015 12:10 AM EDT 11/13/2015 12:19 AM EDT Narrative Resulting Agency Comment Spec In Lab Tal Eagle MD CHEMISTRY ORDERAB LES Performing Organization Address [facility]/ZIP Co de Phone Number [facility] [place] [address] * EKG 12 Lead (11/12/2015 10:35 PM EDT) [facility] Ventricular rate 102 BPM MUSE SYSTEM Atrial Rate 107 BPM MUSE SYSTEM QRS Duration 94 ms MUSE SYSTEM Q-T Interval 358 ms MUSE SYSTEM QTC Calculated (Bezet) 466 ms MUSE SYSTEM Calculated R [place] -60 degrees MUSE SYSTEM Calculated T [place] 19 degrees MUSE SYSTEM INTERPRETATION Sinus [...] 2:30 PM EDT) Lactate WB 2.4(H) mmol/L [facility] Comment: Reference Interval: Whole Blood Lactate: 0.5 to 2.2 mmol/L Blood specimen (specimen) 11/12/2015 2:30 PM EDT 11/12/2015 2:30 PM EDT Emergency Dept CHEMISTRY ORDERABLE S Performing Organization Address [facility] Co de Phone Number [facility] [place] [address] * (ABNORMAL) Urine culture (11/12/2015 2:27 PM EDT) [facility] Urine Culture Greater than 100,000 cfu/ml Enterococcus species(A) [facility] Organism Enterococcus species(A) [facility] Urine specimen obtained [...] - GENE RAL ORDERABLES Performing Organization Address [facility] Co de Phone Number [facility] [place] [address] * (ABNORMAL) Urinalysis with reflex Culture (11/12/2015 2:27 PM EDT) Glucose, Urine Dipstick 50(A) Negative mg/dL [facility] Protein, [...] [facility] Blood, Urine Dipstick Moderate(A) Negative mg/dL [facility] Ketone, Urine Dipstick Negative Negative mg/dL [facility] Nitrite, Urine Dipstick Negative Negative [facility] Leukocytes, Urine Dipstick Small(A) Negative [facility] Appearance, Urine Dipstick Clear Clear [facility] Specific [place] Urine Automated 1.014 1.002 - 1.030 [facility] Color, Urine Dipstick Yellow Yellow [facility] RBC, Urine 3 0 - 3 /HPF [facility] WBC, Urine 20(H) 0 - 3 /HPF [facility] WBC Clumps, Urine Rare(A) None /HPF [facility] Bacteria, Urine Rare(A) None /HPF [facility] Reflex to Culture Yes [facility] Urine specimen obtained by clean catch procedure (specimen) 11/12/2015 2:27 PM EDT 11/12/2015 2:43 PM EDT Narrative Resulting Agency Comment Spec In Lab Paola Colbert MD URINE ORDERABLES [facility] [place] [address] * (ABNORMAL) Differential, Automated (11/12/2015 2:25 PM EDT) Neutrophil % 88.6 % [facility] Neutrophil Absolute 8.96(H) 1.50 - 6.30 x10(3)/mc L [facility] Lymph % 5.3 % [facility] Lymphocytes Abs 0.5(L) 1.0 - 3.6 x10(3)/[facility] LABORATORY Monocyte % 5.1 % [facility] Monocyte Abs 0.5 0.2 - 1.0 x10(3)/[facility] Eos % 0.2 % [facility] Eosinophils Abs 0.0 0.0 - 0.5 x10(3)/[facility] Basophil % 0.3 % [facility] Baso Absolute 0.0 0.0 - 0.2 x10(3)/[facility] Immature Gran % 0.50 % [facility] Comment: Immature granulocytes(IG's)percentage and absolute count will include metamyelocytes, myelocytes, and promyelocytes. Blood smears from CBCs yielding IG's will be scanned manually for concordance. If this scan disagrees with the automated IG or if promyelocytes are noted, a manual differential will be performed. Immature Gran Absolute 0.05 0.00 - 0.05 x10(3)/[facility]ATORY Blood specimen (specimen) 11/12/2015 2:25 PM EDT 11/12/2015 2:46 PM EDT Narrative Resulting Agency Comment Spec In Lab Paola Colbert MD HEMATOLOGY ORDERABL ES [facility] [place] [address] * (ABNORMAL) Hemogram (11/12/2015 2:25 PM EDT) White Blood Cell 10.1(H) 4.0 - 10.0 x10(3)/[facility] Red Blood Cell 4.54(L) 4.63 - 6.08 x10(6)/[facility] Hemoglobin 14.5 13.7 - 17.5 gm/dL [facility] Hematocrit 41.3 40.0 - 51.0 % [facility] Mean Cell Volume 91.0 79.0 - 92.0 fL [facility] Mean Cell Hemoglobin 31.9 25.6 - 32.2 pg [facility] Mean Cell Hemoglobin Concentration 35.1 32.0 - 36.5 gm/dL [facility] Platelet 268 145 - 370 x10(3)/mc L [facility] RDW Standard Deviation 48.1(H) 35.0 - 46.0 fL [facility] RDW coefficient of variation 14.5(H) 10.9 - 14.4 % [facility] Mean Platelet Volume 9.6 9.0 - 12.0 fL [facility] Blood specimen (specimen) 11/12/2015 2:25 PM EDT 11/12/2015 2:46 PM EDT Narrative Resulting Agency Comment Spec In Lab Paola Colbert MD HEMATOLOGY ORDERABL ES Performing Organization Address City/[facility] Co de Phone Number [facility] [place] [address] * Blue Tube HOLD (11/12/2015 2:25 PM EDT) Blue Hold Sample in lab. [facility] Blood specimen (specimen) 11/12/2015 2:25 PM EDT 11/12/2015 2:46 PM EDT Paola Colbert MD HEMATOLOGY ORDERABL ES Performing Organization Address [facility] Co de Phone Number [facility] [place] [address] * (ABNORMAL) BMP w/fasting Glucose (11/12/2015 2:25 PM EDT) Glucose Fasting 202(H) 65 - 99 mg/dL [facility] [...] of Diabetes Mellitus, Position Statement from the [place] Diabetes Association. ??Diabetes Care, Volume 33, Supplement 1, Jul 2009 Blood Urea Nitrogen 20 10 - 20 mg/dL [facility] Creatinine 2.02(H) 0.80 - 1.50 mg/dL [facility] Comment: Please note that the pediatric reference intervals supplied above were not validated at [facility]. Results from pediatric patients should be interpreted in conjunction to the patient's age, height and muscle mass. Sodium 137 135 - 145 mmol/L [facility] Potassium 4.0 3.5 - 5.0 mmol/L [facility] [...] 15 mmol/L [facility] Calcium 9.3 8.5 - 10.5 mg/dL [facility] Est Glomerular Filtration Rate 33(L) >=60 [facility] Comment: This [...] the following links into your internet browser. [email or web address] Blood specimen (specimen) 11/12/2015 2:25 PM EDT 11/12/2015 2:46 PM EDT Narrative Resulting Agency Comment Spec In Lab Paola Colbert MD CHEMISTRY ORDERABLE S Performing Organization Address [facility] de Phone Number [facility] [place] [address] * (ABNORMAL) Blood culture (11/12/2015 2:25 PM EDT) Blood Culture Enterococcus faecalis isolated Susceptibilities previously reported (A) [facility] Gram Stain Aerobic Growth detected in aerobic bottle. Gram Positive Cocci in pairs seen (A) [facility] Gram Stain Anaerobic Growth detected in anaerobic bottle. Gram Positive Cocci in pairs seen (A) [facility] Organism Gram Positive Cocci in pairs(A) [facility] Blood specimen (specimen) STRUCTURE OF RIGHT FOREARM / Unknown 11/12/2015 2:25 PM EDT 11/12/2015 2:53 PM EDT Comment:#1 Narrative Resulting Agency Comment Spec In Lab Paola Colbert MD MICROBIOLOGY - BLOO D ORDERABLES Performing Organization Address [facility] Co de Phone Number [facility] [place] [address] * (ABNORMAL) Blood culture (11/12/2015 2:25 PM EDT) Blood Culture Enterococcus faecalis isolated Isolate saved. If future testing is required, contact the Microbiology [employer]. (A) [facility] Gram Stain Bottle Growth detected in aerobic and anaerobic bottles. Gram Positive Cocci in pairs seen (A) [facility] Organism Enterococcus faecalis(A) [facility] Organism Gram Positive Cocci in pairs(A) [facility] Blood specimen (specimen) ANTECUBITAL [...] Colbert MD MICROBIOLOGY - [place] [address] documented in this encounter Visit Diagnoses Diagnosis [...] 12:23 AM EDT 75 mL/hr 75 mL/hr Bag 11/14/2015 12:13 PM EDT 75 mL/hr [...] Urinary Tract/Pyelonephritis 0018 (Given - Provider: Malina Edmonds RN)0609 (Given - Provider: Malina Edmonds, JADEN)1211 (Given [...] Masterson, JADEN) 0005 (Given - Provider: Brenda Masterson, JADEN)0434 (Given - Provider: Brenda Masterson RN)0808 (Given - Provider: Keyana Hedrick, JADEN)1202 (Given - Provider: Keyana Hedrick, JADEN)1553 (Given - Provider: Keyana Hedrick, JADEN)203 (Given - Provider: Brenda Masterson RN)2354 (Given - Provider: Brenda Masterson RN) 0424 (Given - Provider: Brenda Masterson RN)0955 (Given - Provider: Angela Rendon, JADEN)1325 (Given - Provider: Angela Rendon RN) calciTRIol (ROCALTROL) capsule 0.5 mcg (CANCELED) 0.5 mcg, Oral, 2 TIMES DAILY, First dose on Thu11/15/15 at 0900, Until Discontinued, Routine 1041 (Given - Provider: Keyana Hedrick RN)2059 (Given - Provider: Brenda Mastesron RN) 1029 (Given - Provider: Angela Rendon, [...] appropriate choice: ID Approval by Selena Fatima 3445 (Given - Provider: Angela Rendon, JADEN) DILTiazem (DILTIAZEM CD) ER capsule 120 [...] Masterson, JADEN) 0517 (Given - Provider: Brenda Masterson RN)1459 (Given - Provider: Keyana Hedrick, JADEN)2101 (Given - Provider: Brenda Masterson RN) 0549 (Given - Provider: Brenda Masterson RN)1400 (Not Given - Provider: Angela Rendon RN - Reason: Patient/family refused) insulin aspart [...] 103 (Given - Provider: Angela Rendon RN) polyethylene glycol (MIRALAX) packet 17 [...] schedule. documented in this encounter Care Teams Director Content Marketing Relationship Specialty Start Date End Date [place] Denis DO [address] [facility] [address] [place] [address] PCP - General 09/03/12 03/17/22 Ruhci Valles RN Nurse Clinic Transplant Surgery 07/30/15 documented as of this encounter
--- OUTSIDE RECORDS SUMMARY | 2024-05-16 17:37 | XMS_ITS | Encounter Summary ---
Author Organization [facility] [place] [address] Care Team Providers Care Roll Finisher Name Role Phone Urbano Denis DO Primary Care Provider Encounter Details Date Type Department Care Team (Late st Contact Info) Description 10/12/2015 Telephone [place] [phone] Marisela Metcalf, RN Social History Tobacco Use [...] EST TH Visit (TeleHealth) Cardiology at [address] [phone] Byron Brown MD [facility] [place] [address] 07/14/2024 10:00 AM EST Hospital Encounter Non-Invasive [place] [phone] Arrived documented as of this encounter Visit Diagnoses Not on filedocumented in this encounter Care Teams Roll Finisher Relationship Specialty Start Date End Date Urbano Denis DO [address] [place] [address] [address] PCP - General 09/03/12 03/17/22 Ruchi Valles RN Nurse Clinic Transplant Surgery 07/30/15 documented as of this encounter
--- OUTSIDE RECORDS SUMMARY | 2024-05-16 17:37 | XMS_ITS | Encounter Summary ---
Author Organization Formerly [facility] [place] [address] Care Team Providers Care Clam Dredger Name Role Phone Urbano Denis DO Primary Care Provider Encounter Details Date Type Department Care Team (Latest Contact Info) Description 10/26/2015 7:50 AM EDT Laboratory Appointment Lab [address] [place] [address] H/O kidney transplant Social History [...] EST TH Visit (TeleHealth) Cardiology at [address] [phone] Byron Brown MD [facility] [place] [address] 07/14/2024 10:00 AM EST Hospital Encounter Non-[place] [address] Arrived documented as of this [...] Gram Positive organisms , probable contaminant(A ) [facility] Urine specimen (specimen) 10/26/2015 8:13 AM EDT 10/26/2015 8:45 AM EDT Narrative Resulting Agency Comment Spec In Lab Tal Eagle MD MICROBIOLOGY - [facility] ORDERABLES [facility] [place] [address] * (ABNORMAL) Urinalysis with reflex Culture (10/26/2015 [...] mg/dL [facility] pH, Urn (dipstick) 5.0 5.0 - 8.0 [facility] Blood, Urine Dipstick Small(A) Negative mg/dL [facility] Ketone, Urine Dipstick Negative Negative mg/dL [facility] Nitrite, Urine Dipstick Negative Negative [facility] Leukocytes, Urine Dipstick Trace(A) Negative [facility] Appearance, Urine Dipstick Clear Clear [facility] Specific [place] Urine Automated 1.023 1.002 - 1.030 [facility] Color, Urine Dipstick Yellow Yellow [facility] RBC, Urine 5(H) 0 - 3 /HPF [facility] WBC, Urine 10(H) 0 - 3 /HPF [facility] Squamous Epithelial Cells, Urine <1 <=4 /HPF [facility] Hyaline Casts, Urine 3(H) 0 - 2 /LPF [facility] Reflex to Culture Yes [facility] Urine specimen (specimen) 10/26/2015 8:13 AM EDT 10/26/2015 8:17 AM EDT Narrative Resulting Agency Comment Spec In Lab Tal Eagle MD URINE ORDERABLES [facility] [place] [address] * (ABNORMAL) Phosphorus (10/26/2015 8:10 AM EDT) [facility] Phosphorus 2.4(L) 2.5 - 4.5 mg/dL [facility] Blood specimen (specimen) Venous Draw / Unknown 10/26/2015 8:10 AM EDT 10/26/2015 8:21 AM EDT Narrative Resulting Agency Comment Spec In Lab Tal Eagle MD CHEMISTRY ORDERAB LES [facility] [place] [address] * (ABNORMAL) Cholesterol, total (10/26/2015 8:10 AM EDT) [facility] Cholesterol, Total 261(H) <=199 mg/dL [facility] Comment: Recommendations [...] MD CHEMISTRY ORDERAB LES Performing Organization Address City/[facility]/ZIP Co de Phone Number [facility] [place] [address] * (ABNORMAL) Differential, Automated (10/26/2015 8:10 AM EDT) [facility] Neutrophil % 77.6 % [facility] Neutrophil Absolute 6.76(H) 1.50 - 6.30 x10(3)/mc L [facility] Lymph % 16.5 % [facility] Lymphocytes Abs 1.4 1.0 - 3.6 x10(3)/mc L [facility] Monocyte % 4.2 % [facility] Monocyte Abs 0.4 0.2 - 1.0 x10(3)/[facility] Eos % 0.6 % [facility] Eosinophils Abs 0.0 0.0 - 0.5 x10(3)/[facility] Basophil % 0.2 % [facility] Baso Absolute 0.0 0.0 - 0.2 x10(3)/[facility] Immature Gran % 0.90 % [facility] Comment: Immature granulocytes(IG's)percentage and absolute count will include metamyelocytes, myelocytes, and promyelocytes. Blood smears from CBCs yielding IG's will be scanned manually for concordance. If this scan disagrees with the automated IG or if promyelocytes are noted, a manual differential will be performed. Immature Gran Absolute 0.08(H) 0.00 - 0.05 x10(3)/[facility] Blood specimen (specimen) 10/26/2015 8:10 AM EDT 10/26/2015 8:19 AM EDT Narrative Resulting Agency Comment Spec In Lab Tal Eagle MD HEMATOLOGY ORDERA BLES [facility] [place] [address] * (ABNORMAL) Hemogram (10/26/2015 8:10 AM EDT) White Blood Cell 8.7 4.0 - 10.0 x10(3)/[facility] Red Blood Cell 4.58(L) 4.63 - 6.08 x10(6)/[facility] Hemoglobin 15.0 13.7 - 17.5 gm/dL [facility] Hematocrit 42.1 40.0 - 51.0 % [facility] Mean Cell Volume 91.9 79.0 - 92.0 fL [facility] Mean Cell Hemoglobin 32.8(H) 25.6 - 32.2 pg [facility] Mean Cell Hemoglobin Concentration 35.6 32.0 - 36.5 gm/dL [facility] Platelet 295 145 - 370 x10(3)/mc L [facility] RDW Standard Deviation 52.0(H) 35.0 - 46.0 fL [facility] RDW coefficient of variation 15.6(H) 10.9 - 14.4 % [facility] Mean Platelet Volume 9.5 9.0 - 12.0 fL [facility] Blood specimen (specimen) 10/26/2015 8:10 AM EDT 10/26/2015 8:19 AM EDT Narrative Resulting Agency Comment Spec In Lab Tal Eagle MD HEMATOLOGY ORDERA BLES [facility] [place] [address] * (ABNORMAL) Comprehensive metabolic panel (non-fasting) (10/26/2015 8:10 AM EDT) Glucose 176 65 - 199 mg/dL [facility] Comment:Diabetes: >=200 mg/d L plus symptoms Blood Urea Nitrogen 17 10 - 20 mg/dL [facility] Creatinine 1.49 0.80 - 1.50 mg/dL [facility] Comment: Please note that the pediatric reference intervals supplied above were not validated at [facility]. Results from pediatric patients should be interpreted in conjunction to the patient's age, height and muscle mass. Sodium 138 135 - 145 mmol/L [facility] Potassium 4.2 3.5 - 5.0 mmol/L [facility] [...] - 8.0 gm/dL [facility] Albumin 4.3 3.2 - 5.2 gm/dL [facility] Aspartate Aminotransferase 19 0 - 39 unit/L [facility] Alanine Aminotransferase 29 0 - 55 unit/L [facility] Alkaline Phosphatase 86 40 - 120 unit/L [facility] Bilirubin, Total 1.0 0.2 - 1.3 mg/dL [facility] [...] the following links into your internet browser. [email or web address] [email or web address] Blood specimen (specimen) 10/26/2015 8:10 AM EDT 10/26/2015 8:19 AM EDT Narrative Resulting Agency Comment Spec In Lab Tal Eagle MD CHEMISTRY ORDERAB LES [facility] [place] [address] * Uric acid (10/26/2015 8:10 AM EDT) Uric Acid 7.8 3.5 - 8.5 mg/dL [facility] Blood specimen (specimen) 10/26/2015 8:10 AM EDT 10/26/2015 8:19 AM EDT Narrative Resulting Agency Comment Spec In Lab Tal Eagle MD CHEMISTRY ORDERAB LES Performing Organization Address City/[facility]/ZIP Co de Phone Number [facility] [place] [address] * Tacrolimus level (10/26/2015 8:10 AM EDT) Tacrolimus 11.4 ng/mL [facility] Comment:Trough therapeutic: 5-15 ng/mL Blood specimen (specimen) 10/26/2015 8:10 AM EDT 10/26/2015 10:39 AM EDT Narrative Resulting Agency Comment Spec In Lab Tal Eagle MD CHEMISTRY ORDERAB LES Performing Organization Address [facility] Co de Phone Number [facility] [place] [address] * (ABNORMAL) Magnesium (10/26/2015 8:10 AM EDT) Magnesium 0.58(L) 0.69 - 1.07 mmol/L [facility] Blood specimen (specimen) 10/26/2015 8:10 AM EDT 10/26/2015 8:19 AM EDT Narrative Resulting Agency Comment Spec In Lab Tal Eagle MD CHEMISTRY ORDERAB LES Performing Organization Address [facility] Co de Phone Number [facility] [place] [address] documented in this encounter Visit Diagnoses Diagnosis H/O kidney transplant Kidney replaced by transplant documented in this encounter Care Teams Clam Dredger Relationship Specialty Start Date End Date Urbano Denis DO [address] [place] [address] PCP - General 09/03/12 03/17/22 Hai STANLEY,Ruchi Nurse Clinic Transplant Surgery 07/30/15 documented as of this encounter
--- OUTSIDE RECORDS SUMMARY | 2024-05-16 17:37 | XMS_ITS | Encounter Summary ---
Author Organization [facility] Address [facility] [place] [address] Care Team Providers Care Top Lift Compresser Name Role Phone Adeel Urbano KIRBY Primary Care Provider [phone] Reason for Visit * Reason Comments Kidney Transplant Kidney Transplant Follow-up Immunotherapy Encounter Details Date Type Department Care Team (Latest Contact Info) Description 11/08/2015 10:00 AM EDT Office Visit [place] [address] Tal Eagle MD [facility] [place] [address] Kidney replaced by transplant; Aftercare following organ [...] T, RD - 11/08/2015 3:13 PM EDT [facility] Post Transplant Nutrition Follow Up Date: 11/08/2015 Patient: Ethel Akins Transplant Date: 09/16/15 [place] organ UNOS diagnosis: Transplant: Mr. Ethel Akins [...] Value Date CHLPL 187 11/08/2015 Assessment: This typewriter operator automatic provided patient with a copy of his [...] Eagle MD - 11/08/2015 2:19 PM EDT [facility] Transplant Nephrology Follow Up Date: 11/08/15 [...] for diabetics, every 5 for non diabetics [place] kidney ultrasound looking for renal cell CA, [...] Dr. Shagufta Wagner, DO Nephrology Fellow Pager #[phone] I reviewed all of the above findings and assessment of Dr. Wagner, examined the patient and formulated the recommendations which accurately reflect mine. documented in this encounter Plan of Treatment Upcoming Encounters Date Type Department Care Team (Late st Contact Info) Description 06/22/2024 11:00 AM EST Visit (TeleHealth) Cardiology at [address] [phone] Byron Brown MD [facility] [place] [address] 07/14/2024 10:00 AM EST Hospital Encounter Non-Invasive [place] [address] Arrived documented as of this encounter Results * Protein/Creatinine Ratio, urine (11/08/2015 8:55 AM EDT) Creatinine, Urine 112 mg/dL [facility] Protein, Urine 8 0 - 12 mg/dL [facility] Protein / Creatinine Ratio, Urine <0.1 ratio [facility] Urine specimen (specimen) 11/08/2015 8:55 AM EDT 11/08/2015 9:03 AM EDT Narrative Resulting Agency Comment Spec In Lab Tal Eagle MD URINE ORDERABLES [facility] [place] [address] * (ABNORMAL) Urinalysis with reflex Culture (11/08/2015 [...] HOSPITAL LABORATORY Leukocytes, Urine Dipstick Trace(A) Negative [facility] Appearance, Urine Dipstick Clear Clear [facility] Specific [place] Urine Automated 1.016 1.002 - 1.030 [facility] Color, Urine Dipstick Yellow Yellow [facility] RBC, Urine 1 0 - 3 /HPF [facility] WBC, Urine 17(H) 0 - 3 /HPF [facility] Reflex to Culture Yes [facility] Urine specimen (specimen) 11/08/2015 8:55 AM EDT 11/08/2015 9:03 AM EDT Narrative Resulting Agency Comment Spec In Lab Tal Eagle MD URINE ORDERABLES [facility] [place] [address] * (ABNORMAL) Comprehensive metabolic panel (non-fasting) (11/08/2015 8:49 AM EDT) Glucose 162 65 - 199 mg/dL [facility] Comment:Diabetes: >=200 mg/d L plus symptoms Blood Urea Nitrogen 23(H) 10 - 20 mg/dL [facility] Creatinine 1.89(H) 0.80 - 1.50 mg/dL [facility] Comment: Please note that the pediatric reference intervals supplied above were not validated at [facility]. Results from pediatric patients should be interpreted in conjunction to the patient's age, height and muscle mass. Sodium 141 135 - 145 mmol/L [facility] Potassium 4.4 3.5 - 5.0 mmol/L [facility] [...] 15 mmol/L [facility] Calcium 9.1 8.5 - 10.5 mg/dL [facility] Protein, Total 7.2 6.1 - 8.0 gm/dL [facility] Albumin 4.2 3.2 - 5.2 gm/dL [facility] Aspartate Aminotransferase 22 0 - 39 unit/L [facility] Alanine Aminotransferase 25 0 - 55 unit/L [facility] Alkaline Phosphatase 83 40 - 120 unit/L [facility] Bilirubin, Total 0.7 0.2 - 1.3 mg/dL [facility] Bilirubin, Direct <0.1 0.0 - 0.3 mg/dL [facility] Est Glomerular Filtration Rate 36(L) >=60 [facility] Comment: This [...] the following links into your internet browser. [email or web address]/[email or web address] [email or web address] Blood specimen (specimen) 11/08/2015 8:49 AM EDT 11/08/2015 8:53 AM EDT Narrative Resulting Agency Comment Spec In Lab Tal Eagle MD CHEMISTRY ORDERAB LES Performing Organization Address [facility] Co de Phone Number [facility] [place] [phone] * Magnesium (11/08/2015 8:49 AM EDT) Magnesium 0.69 0.69 - 1.07 mmol/L [facility] Blood specimen (specimen) 11/08/2015 8:49 AM EDT 11/08/2015 8:53 AM EDT Narrative Resulting Agency Comment Spec In Lab Tal Eagle MD CHEMISTRY ORDERAB LES Performing Organization Address City/State/[facility] Co de Phone Number [facility] [place] [address] * Phosphorus (11/08/2015 8:49 AM EDT) Phosphorus 2.7 2.5 - 4.5 mg/dL [facility] Blood specimen (specimen) 11/08/2015 8:49 AM EDT 11/08/2015 8:53 AM EDT Narrative Resulting Agency Comment Spec In Lab Tal Eagle MD CHEMISTRY ORDERAB LES Performing Organization Address City/[facility]/ZIP Co de Phone Number [facility] [place] [address] * (ABNORMAL) Uric acid (11/08/2015 8:49 AM EDT) Uric Acid 9.8(H) 3.5 - 8.5 mg/dL [facility] Blood specimen (specimen) 11/08/2015 8:49 AM EDT 11/08/2015 8:53 AM EDT Narrative Resulting Agency Comment Spec In Lab Tal Eagle MD CHEMISTRY ORDERAB LES Performing Organization Address [facility] Co de Phone Number [facility] [place] [address] * Tacrolimus level (11/08/2015 8:49 AM EDT) Tacrolimus 12.7 ng/mL [facility] Comment:Trough therapeutic: 5-15 ng/mL Blood specimen (specimen) 11/08/2015 8:49 AM EDT 11/08/2015 11:06 AM EDT Narrative Resulting Agency Comment Spec In Lab Tal Eagle MD CHEMISTRY ORDERAB LES Performing Organization Address City/[facility] Co de Phone Number [facility] [place] [address] * Reticulocyte Count (11/08/2015 8:49 AM EDT) Reticulocyte % 1.8 0.5 - 2.4 % [facility] Retic Abs # 0.080 0.027 - 0.095 x10(6)/mcL [facility] Immature Retic% 8.8 2.3 - 15.9 % [facility] Reticulated Hgb 33.8 28.5 - 38.9 pg [facility] Immature Plt % 1.5 0.0 - 7.4 % [facility] Blood specimen (specimen) 11/08/2015 8:49 AM EDT 11/08/2015 8:53 AM EDT Narrative Resulting Agency Comment Spec In Lab Tal Eagle MD HEMATOLOGY ORDERA BLES Performing Organization Address City/[facility] Co de Phone Number [facility] [place] [address] * Cholesterol, total (11/08/2015 8:49 AM EDT) Cholesterol, Total 187 <=199 mg/dL [facility] Comment: Recommendations of the NCEP Adult Treatment Panel for the following risk cutoff thresholds for the [place] population: Desirable: <200 mg/dL Borderline High: 200-239 mg/dL High: > or = 240 mg/dL Blood specimen (specimen) 11/08/2015 8:49 AM EDT 11/08/2015 8:53 AM EDT Narrative Resulting Agency Comment Spec In Lab Tal Eagle MD CHEMISTRY ORDERAB LES Performing Organization Address [facility] Co de Phone Number [facility] [place] [address] documented in this encounter Visit Diagnoses Diagnosis Kidney replaced by transplant Aftercare following organ transplant Prophylactic immunotherapy Need for prophylactic immunotherapy documented in this encounter Care Teams Top Lift Compresser Relationship Specialty Start Date End Date Urbano Denis DO [address] [place] [address] PCP - General 09/03/12 03/17/22 Ruchi Valles RN Nurse Clinic Transplant Surgery 07/30/15 documented as of this encounter
--- OUTSIDE RECORDS SUMMARY | 2024-05-16 17:38 | XMS_ITS | Encounter Summary ---
Author Organization [facility] [place] [address] Care Team Providers Care Engineering Patternmaker Name Role Phone Urbano Denis DO Primary Care Provider [phone] Encounter Details Date Type Department Care Team (Late st Contact Info) Description 09/25/2015 External [place] [address] Provider, Scanning Social History Tobacco [...] EST TH Visit (TeleHealth) Cardiology at [address] [phone] Byron Brown MD [facility] [place] [address] 07/14/2024 10:00 AM EST Hospital [...] filedocumented in this encounter Care Teams Engineering Patternmaker Relationship Specialty Start Date End Date Urbano Denis DO [address] [place] [address] PCP - General 09/03/12 03/17/22 Ruchi Valles RN Nurse Clinic Transplant Surgery 07/30/15 documented as of this encounter
--- OUTSIDE RECORDS SUMMARY | 2024-05-16 17:38 | XMS_ITS | Encounter Summary ---
Author Organization [facility] [place] [address] Care Team Providers Care Triple Drum Operator Name Role Phone Urbano Denis DO Primary Care Provider Encounter Details Date Type Department Care Team (Late st Contact Info) Description 10/02/2015 10:30 AM EDT Office Visit [place] [address] Jennifer Amaro MD [facility] [place] [address] H/O kidney transplant Social History Tobacco Use [...] Bell, RD - 10/02/2015 4:29 PM EDT [facility] Post Transplant Nutrition Follow Up Date: 10/02/2015 Patient: Cody Bolden Transplant Date: 09/16/15 [place] UNOS diagnosis: Transplant: Mr. Cody Bolden [...] Value Date CHLPL 188 10/02/2015 Assessment: This creative writer provided patient with a copy of [...] Total infused: 2,000cc Juan Daniel Escalante RN [facility] [place] [phone] (Pager: [phone]) * Jennifer Amaro MD - 10/02/2015 10:30 [...] EXTREMITY performed by Jennifer Amaro MD at [facility] [...] MD at [facility] OR Family History: No family [...] is no abdominal tenderness tenderness. Wound: Clean ([place] removed and replaced with half length steristrips). [...] EST TH Visit (TeleHealth) Cardiology at [address] [phone] Byron Brown MD [facility] [place] [address] 07/14/2024 10:00 AM EST Hospital Encounter Non-[place] [phone] Arrived documented as of this encounter Procedures [...] * Urine culture (10/02/2015 9:30 AM EDT) [facility] Urine Culture No growth (Less than 1,000 cfu/ml). [facility] Urine specimen obtained by clean catch procedure (specimen) 10/02/2015 9:30 AM EDT 10/02/2015 10:31 AM EDT Narrative Resulting Agency Comment Spec In Lab Jennifer Amaro MD MICROBIOLOGY - GENERAL ORDERABLES Performing Organization Address [facility] Co de Phone Number [facility] [place] [address] * Green Tube HOLD (10/02/2015 9:30 AM EDT) [facility] Green Hold Sample in lab. [facility] Blood specimen (specimen) Venous Draw / Unknown 10/02/2015 9:30 AM EDT 10/02/2015 9:53 AM EDT Jennifer Amaro MD CHEMISTRY ORDE RABLES Performing Organization Address City/[facility]/ZIP Co de Phone Number [facility] [place] [address] * (ABNORMAL) Differential, Automated (10/02/2015 9:30 AM EDT) [facility] Neutrophil % 70.3 % [facility] Neutrophil Absolute 8.39(H) 1.50 - 6.30 x10(3)/[facility] Lymph % 23.1 % [facility] Lymphocytes Abs 2.8 1.0 - 3.6 x10(3)/[facility] Monocyte % 3.4 % [facility] Monocyte Abs 0.4 0.2 - 1.0 x10(3)/[facility] Eos % 2.1 % [facility] Eosinophils Abs 0.2 0.0 - 0.5 x10(3)/[facility] Basophil % 0.6 % [facility] Baso Absolute 0.1 0.0 - 0.2 x10(3)/[facility] Immature Gran % 0.50 % [facility] Comment: Immature granulocytes(IG's)percentage and absolute count will include metamyelocytes, myelocytes, and promyelocytes. Blood smears from CBCs yielding IG's will be scanned manually for concordance. If this scan disagrees with the automated IG or if promyelocytes are noted, a manual differential will be performed. Immature Gran Absolute 0.06(H) 0.00 - 0.05 x10(3)/[facility] Blood specimen (specimen) 10/02/2015 9:30 AM EDT 10/02/2015 9:52 AM EDT Narrative Resulting Agency Comment Spec In Lab Jennifer Amaro MD HEMATOLOGY ORD ERABLES [facility] [place] [address] * (ABNORMAL) Hemogram (10/02/2015 9:30 AM EDT) [facility] White Blood Cell 11.9(H) 4.0 - 10.0 x10(3)/[facility] Red Blood Cell 3.82(L) 4.63 - 6.08 x10(6)/mc L [facility] Hemoglobin 12.2(L) 13.7 - 17.5 gm/dL [facility] Hematocrit 35.8(L) 40.0 - 51.0 % [facility] Mean Cell Volume 93.7(H) 79.0 - 92.0 fL [facility] Mean Cell Hemoglobin 31.9 25.6 - 32.2 pg [facility] Mean Cell Hemoglobin Concentration 34.1 32.0 - 36.5 gm/dL [facility] Platelet 250 145 - 370 x10(3)/mc L [facility] RDW Standard Deviation 52.2(H) 35.0 - 46.0 fL [facility] RDW coefficient of variation 15.3(H) 10.9 - 14.4 % [facility] Mean Platelet Volume 9.6 9.0 - 12.0 fL [facility] Blood specimen (specimen) 10/02/2015 9:30 AM EDT 10/02/2015 9:52 AM EDT Narrative Resulting Agency Comment Spec In Lab Jennifer Amaro MD HEMATOLOGY ORD ERABLES Performing Organization Address City/[facility]/ZIP Co de Phone Number [facility] [place] [address] * Tacrolimus level (10/02/2015 9:30 AM EDT) Tacrolimus 8.6 ng/mL [facility] Comment:Trough therapeutic: 5-15 ng/mL Blood specimen (specimen) 10/02/2015 9:30 AM EDT 10/02/2015 11:30 AM EDT Narrative Resulting Agency Comment Spec In Lab Jennifer Amaro MD CHEMISTRY ORDE DICK Performing Organization Address City/[facility] Co de Phone Number [facility] [place] [address] * (ABNORMAL) Urinalysis with reflex Culture (10/02/2015 [...] LABORATORY Leukocytes, Urine Dipstick Negative Negative mcL [facility] Appearance, Urine Dipstick Clear Clear [facility] Specific [place] Urine Automated 1.026 1.002 - 1.030 [facility] Color, Urine Dipstick Yellow Yellow [facility] RBC, Urine 4(H) 0 - 3 /HPF [facility] WBC, Urine 14(H) 0 - 3 /HPF [facility] WBC Clumps, Urine Rare(A) None /HPF [facility] Reflex to Culture Yes [facility] Urine specimen obtained by clean catch procedure (specimen) 10/02/2015 9:30 AM EDT 10/02/2015 9:43 AM EDT Narrative Resulting Agency Comment Spec In Lab Jennifer Amaro MD URINE ORDERABL ES [facility] [place] [address] * (ABNORMAL) Reticulocyte Count (10/02/2015 9:30 AM EDT) Reticulocyte % 3.0(H) 0.5 - 2.4 % [facility] Retic Abs # 0.110(H) 0.027 - 0.095 x10(6)/mc L [facility] Immature Retic% 3.2 2.3 - 15.9 % [facility] Reticulated Hgb 36.7 28.5 - 38.9 pg [facility] Immature Plt % 0.6 0.0 - 7.4 % [facility] Blood specimen (specimen) 10/02/2015 9:30 AM EDT 10/02/2015 9:52 AM EDT Narrative Resulting Agency Comment Spec In Lab Jennifer Amaro MD HEMATOLOGY ORD ERABLES Performing Organization Address [facility] Co de Phone Number [facility] [place] [address] * Uric acid (10/02/2015 9:30 AM EDT) Uric Acid 5.3 3.5 - 8.5 mg/dL [facility] Blood specimen (specimen) 10/02/2015 9:30 AM EDT 10/02/2015 9:52 AM EDT Narrative Resulting Agency Comment Spec In Lab Jennifer Amaro MD CHEMISTRY ORDTiny JENNINGS Performing Organization Address [facility] Co de Phone Number [facility] [place] [address] * Phosphorus (10/02/2015 9:30 AM EDT) Phosphorus 2.6 2.5 - 4.5 mg/dL [facility] Blood specimen (specimen) 10/02/2015 9:30 AM EDT 10/02/2015 9:52 AM EDT Narrative Resulting Agency Comment Spec In Lab Jennifer Amaro MD CHEMISTRY ORDTiny JENNINGS [facility] [place] [address] * (ABNORMAL) Magnesium (10/02/2015 9:30 AM EDT) [facility] Magnesium 0.53(L) 0.69 - 1.07 mmol/L [facility] Blood specimen (specimen) 10/02/2015 9:30 AM EDT 10/02/2015 9:52 AM EDT Narrative Resulting Agency Comment Spec In Lab Jennifer Amaro MD CHEMISTRY ROCHELLE JENNINGS [facility] [place] [address] * (ABNORMAL) Comprehensive metabolic panel (non-fasting) (10/02/2015 9:30 AM EDT) [facility] Glucose 137 65 - 199 mg/dL [facility] Comment:Diabetes: >=200 mg/d L plus symptoms Blood Urea Nitrogen 22(H) 10 - 20 mg/dL [facility] Creatinine 1.58(H) 0.80 - 1.50 mg/dL [facility] Comment: Please note that the pediatric reference intervals supplied above were not validated at [facility] [place]. Results from pediatric patients should be interpreted in conjunction to the patient's age, height and muscle mass. Sodium 136 135 - 145 mmol/L [facility] Potassium 4.5 3.5 - 5.0 mmol/L [facility] Comment: Please note: ??Patients with WBC >100,000 may have falsely elevated Potassium levels. ??For accurate Potassium quantification in these patients send serum separator tube (gold top) for subsequent determinations. ??Contact the Clinical Chemistry Laboratory if there are any questions. Chloride 98 98 - 107 mmol/L [facility] Carbon Dioxide 23 22 - 31 mmol/L [facility] Anion Gap 15 5 - 15 mmol/L [facility] Calcium 9.1 8.5 - 10.5 mg/dL [facility] Protein, Total 6.6 6.1 - 8.0 gm/dL [facility] Albumin 3.8 3.2 - 5.2 gm/dL [facility] Aspartate Aminotransferase 15 0 - 39 unit/L [facility] Alanine Aminotransferase 25 0 - 55 unit/L [facility] Alkaline Phosphatase 78 40 - 120 unit/L [facility] Bilirubin, Total 0.8 0.2 - 1.3 mg/dL [facility] Bilirubin, Direct 0.2 0.0 - 0.3 mg/dL [facility] Est Glomerular Filtration Rate 44(L) >=60 [facility] [...] the following links into your internet browser. [email or web address] Blood specimen (specimen) 10/02/2015 9:30 AM EDT 10/02/2015 9:52 AM EDT Narrative Resulting Agency Comment Spec In Lab Jennifer Amaro MD CHEMISTRY ROCHELLE JENNINGS [facility] [place] [address] * Cholesterol, total (10/02/2015 9:30 AM EDT) Cholesterol, Total 188 <=199 mg/dL [facility] Comment: Recommendations of the NCEP Adult Treatment Panel for the following risk cutoff thresholds for the [place] population: Desirable: <200 mg/dL Borderline High: 200-239 mg/dL High: > or = 240 mg/dL Blood specimen (specimen) 10/02/2015 9:30 AM EDT 10/02/2015 9:52 AM EDT Narrative Resulting Agency Comment Spec In Lab Jennifer Amaro MD CHEMISTRY ROCHELLE JENNINGS [facility] [place] [address] documented in this encounter Visit Diagnoses Diagnosis [...] mLs documented in this encounter Care Teams Triple Drum Operator Relationship Specialty Start Date End Date Urbano Denis DO [address] [place] [address] PCP - General 09/03/12 03/17/22 Ruchi Valles RN Nurse [facility] Transplant Surgery 07/30/15 documented as of this encounter
--- OUTSIDE RECORDS SUMMARY | 2024-05-16 17:38 | XMS_ITS | Encounter Summary ---
Author Organization [facility] [place] [address] Care Team Providers Care Nursing Care Attendant Name Role Phone AdeelUrbano toscano Primary Care Provider [phone] Encounter Details Date Type Department Care Team (Late st Contact Info) Description 09/21/2015 External Results [place] [address] Social History Tobacco Use Types [...] EST TH Visit (TeleHealth) Cardiology at [address] [phone] Byron Brown MD [facility] [place] [address] 07/14/2024 10:00 AM EST Hospital Encounter Non-Invasive [place] [address] Arrived documented as of this encounter Procedures Procedure Name Priority Date/Time Associated Diagnosis Comments TISSUE TYPING, ABO AND CROSSMATCH Routine 09/15/2015 documented in this encounter Results * Scan Doc: Tissue Typing, ABO,and Crossmatch (09/15/2015) Historical Provider MD PAIZ MGR SCAN EX T ORDR/RSLT documented in this encounter Visit Diagnoses Not on filedocumented in this encounter Care Teams Nursing Care Attendant Relationship Specialty Start Date End Date Urbano Denis DO [address] [place] [address] [address] [place] [address] PCP - General 09/03/12 03/17/22 Hai STANLEY,Ruchi Nurse Clinic Transplant Surgery 07/30/15 documented as of this encounter
--- OUTSIDE RECORDS SUMMARY | 2024-05-16 17:38 | XMS_ITS | Encounter Summary ---
Author Organization [facility] [place] [address] Care Team Providers Care Machine Installer Name Role Phone Urbano Denis DO Primary Care Provider Encounter Details Date Type Department Care Team (Late st Contact Info) Description 09/26/2015 Telephone [place] [phone] Samia Escalante, RN Social History Tobacco Use [...] tomorrow to check in. Samia Escalante, RN [facility] Solid Organ Transplant [phone] (Pager: [phone]) documented in this encounter Plan of Treatment Upcoming Encounters Date Type Department Care Team (Late st Contact Info) Description 06/22/2024 11:00 AM EST TH Visit (TeleHealth) Cardiology at [address] [phone] Byron Brown MD [facility] [place] [address] 07/14/2024 10:00 AM EST Hospital Encounter Non-[place] [phone] Arrived documented as of this encounter Visit Diagnoses Not on filedocumented in this encounter Care Teams Machine Installer Relationship Specialty Start Date End Date Urbano Denis DO [address] [place] [address] PCP - General 09/03/12 03/17/22 Ruchi Valles RN Nurse Clinic Transplant Surgery 07/30/15 documented as of this encounter
--- OUTSIDE RECORDS SUMMARY | 2024-05-16 17:38 | XMS_ITS | Encounter Summary ---
Author Organization [facility] [place] [address] Care Team Providers Care Wood Web Weaving Machine Operator Name Role Phone Urbano Denis DO Primary Care Provider [phone] Encounter Details Date Type Department Care Team (Late st Contact Info) Description 09/24/2015 Telephone [place] [phone] Samia Escalante, RN Social History Tobacco Use [...] call with additional concerns. Samia Escalante RN [facility] Solid Organ Transplant [phone] (Pager: [phone]) documented in this encounter Plan of Treatment Upcoming Encounters Date Type Department Care Team (Late st Contact Info) Description 06/22/2024 11:00 AM EST TH Visit (TeleHealth) Cardiology at [address] [phone] Byron Brown MD [facility] [place] [address] 07/14/2024 10:00 AM EST Hospital Encounter Non-[place] [address] Arrived documented as of this encounter Visit Diagnoses Not on filedocumented in this encounter Care Teams Wood Web Weaving Machine Operator Relationship Specialty Start Date End Date Urbano Denis DO [facility] [address] [facility] [address] [place] [address] PCP - General 09/03/12 03/17/22 Hai STANLEY,Ruchi Nurse Clinic Transplant Surgery 07/30/15 documented as of this encounter
--- OUTSIDE RECORDS SUMMARY | 2024-05-16 17:38 | XMS_ITS | Encounter Summary ---
[place] [address] Care Team Providers Care Logistics Planning Manager Name Role Phone Urbano Denis DO Primary Care Provider [phone] Encounter Details Date Type Department Care Team (Latest Contact Info) Description 09/25/2015 10:47 AM EDT - 09/25/2015 11:59 PM EDT Hospital [place] [address] Discharge Disposition: Home Social History Tobacco Use [...] EST TH Visit (TeleHealth) Cardiology at [address] [phone] Byron Brown MD [facility] [place] [place] [address] 07/14/2024 10:00 AM EST Hospital Encounter Non-Invasive [place] [address] Arrived documented as of this encounter Procedures Procedure Name Priority Date/Time Associated Diagnosis Comments SURGICAL PATHOLOGY REPORT Routine 09/25/2015 10:47 AM EDT documented in this encounter Results * Surgical Pathology Report (09/25/2015 10:47 AM EDT) Final Diagnosis [id number] ? Location: [facility] The signing pathologist has (i) examined the relevant preparation(s) for the specimen(s) and (ii) rendered or confirmed the diagnosis(es). . ?Surgical Pathology DIAGNOSIS CONSULTATION CASE Outside slides labeled RtK (Donor ID# [id number]), collection date 09/15/2015. Kidney, wedge biopsy, pre-transplant: [...] are identified. ADDITIONAL STUDIES Whole slide scan: Internet Ecommerce Specialist slide CLINICAL INFORMATION Specimen Submitted: CONSULTATION CASE A - 3 slides labeled RtK (Donor ID# [id number]), collection date 09/15/2015. [id number] Report to: [facility] [address] [id number] T: [phone] F: [phone] SPECIMEN PROCESSING [facility] ([facility]) pathology slide(s) are reviewed. ??Refer to Diagnosis and Specimen Submitted for specific case information. For the full text of the [facility] report(s) please refer to Non-DH Documentation Pathology in the electronic health record (eDH). 09/26/2015 10:03 AM EDT [facility] Consult Case 09/25/2015 10:4 7 AM EDT 09/25/2015 10:47 AM EDT Franko Larkin MD PATHOLOGY/CYTOLOGY O RDERABLES [facility] [place] [phone] documented in this encounter Visit Diagnoses Not on filedocumented in this encounter Care Teams Logistics Planning Manager Relationship Specialty Start Date End Date Urbano Denis DO [address] [place] [address] PCP - General 09/03/12 03/17/22 Ruchi Valles RN Nurse Clinic Transplant Surgery 07/30/15 documented as of this encounter
--- OUTSIDE RECORDS SUMMARY | 2024-05-16 17:38 | XMS_ITS | Encounter Summary ---
Author Organization [facility] [place] [address] Care Team Providers Care Services Executive Name Role Phone Urbano Denis DO Primary Care Provider Encounter Details Date Type Department Care Team (Late st Contact Info) Description 09/28/2015 10:30 AM EDT Office Visit [place] [address] Jennifer Amaro MD [facility] [place] [address] H/O kidney transplant Social History Tobacco Use [...] Bell, RD - 09/28/2015 1:54 PM EDT [facility] Post Transplant Nutrition Follow Up Date: 09/28/2015 Patient: Cody Bolden Transplant Date: 09/16/15 [place] organ UNOS diagnosis: Transplant: Mr. Cody Bolden [...] Value Date CHLPL 186 09/28/2015 Assessment: This chart writer provided patient with [...] end time 1:15p. Juan Daniel Escalante RN [facility] [phone] (Pager: [phone]) * Jennifer Amaro MD - 09/28/2015 11:06 [...] EXTREMITY performed by Jennifer Amaro MD at [facility] MAIN OR ??? Pro transplantation of kidney N/A 09/16/2015 @KIDNEY TRANSPLANT, WITHOUT RECIPIENT NEPHRECTOMY performed by Franko Larkin MD at [facility] OR ??? Pro transplant, prep cadaver renal graft N/A 09/16/2015 @PREPARATION CADAVERIC RENAL ALLOGRAFT performed by Franko Larkin MD at [facility] OR ??? N/A 09/16/2015 ORGAN ACQUISITION RENAL, CADAVERIC performed by Franko Larkin MD at [facility] OR Family History: No family history on [...] EST TH Visit (TeleHealth) Cardiology at [address] [phone] Byron Brown MD [facility] [place] [address] 07/14/2024 10:00 AM EST Hospital Encounter [place] [address] Arrived documented as of this [...] Urine culture (09/28/2015 9:35 AM EDT) Pathologist [facility] Urine Culture No growth (Less than 1,000 cfu/ml). [facility] Urine specimen obtained by clean catch procedure (specimen) 09/28/2015 9:35 AM EDT 09/28/2015 10:46 AM EDT Narrative Resulting Agency Comment Spec In Lab Jennifer Amaro MD MICROBIOLOGY - GENERAL ORDERABLES Performing Organization Address City/[facility]/ZIP Co de Phone Number [facility] [place] [address] * Green Tube HOLD (09/28/2015 9:35 AM EDT) Pathologist [facility] Green Hold Sample in lab. [facility] Blood specimen (specimen) Venous Draw / Unknown 09/28/2015 9:35 AM EDT 09/28/2015 9:58 AM EDT Jennifer Amaro MD CHEMISTRY ORDE RABLES Performing Organization Address City/[facility]/ZIP Co de Phone Number [facility] [place] [address] * (ABNORMAL) Differential, Automated (09/28/2015 9:35 AM EDT) Neutrophil % 74.3 % [facility] Neutrophil Absolute 8.44(H) 1.50 - 6.30 x10(3)/mc L [facility] Lymph % 18.8 % [facility] Lymphocytes Abs 2.1 1.0 - 3.6 x10(3)/[facility] Monocyte % 3.8 % [facility] Monocyte Abs 0.4 0.2 - 1.0 x10(3)/[facility] Eos % 1.8 % [facility] Eosinophils Abs 0.2 0.0 - 0.5 x10(3)/[facility] Basophil % 0.4 % [facility] Baso Absolute 0.0 0.0 - 0.2 x10(3)/[facility] Immature Gran % 0.90 % [facility] Comment: Immature granulocytes(IG's)percentage and absolute count will include metamyelocytes, myelocytes, and promyelocytes. Blood smears from CBCs yielding IG's will be scanned manually for concordance. If this scan disagrees with the automated IG or if promyelocytes are noted, a manual differential will be performed. Immature Gran Absolute 0.10(H) 0.00 - 0.05 x10(3)/[facility] Blood specimen (specimen) 09/28/2015 9:35 AM EDT 09/28/2015 9:56 AM EDT Narrative Resulting Agency Comment Spec In Lab Jennifer Amaro MD HEMATOLOGY ORD ERABLES [facility] [place] [address] * (ABNORMAL) Hemogram (09/28/2015 9:35 AM EDT) White Blood Cell 11.4(H) 4.0 - 10.0 x10(3)/[facility] Red Blood Cell 3.69(L) 4.63 - 6.08 x10(6)/[facility] Hemoglobin 11.5(L) 13.7 - 17.5 gm/dL [facility] Hematocrit 34.2(L) 40.0 - 51.0 % [facility] Mean Cell Volume 92.7(H) 79.0 - 92.0 fL [facility] Mean Cell Hemoglobin 31.2 25.6 - 32.2 pg [facility] Mean Cell Hemoglobin Concentration 33.6 32.0 - 36.5 gm/dL [facility] Platelet 266 145 - 370 x10(3)/mc L [facility] RDW Standard Deviation 49.6(H) 35.0 - 46.0 fL [facility] RDW coefficient of variation 14.9(H) 10.9 - 14.4 % [facility] Mean Platelet Volume 9.5 9.0 - 12.0 fL [facility] Blood specimen (specimen) 09/28/2015 9:35 AM EDT 09/28/2015 9:56 AM EDT Narrative Resulting Agency Comment Spec In Lab Jennifer Amaro MD HEMATOLOGY ORD AMANDABLES Performing Organization Address City/[facility]/ZIP Co de Phone Number [facility] [place] [address] * Tacrolimus level (09/28/2015 9:35 AM EDT) Tacrolimus 15.1 ng/mL [facility] Comment: Called by: payton, Read back by: [email or web address] [phone], Date/Time:09/28/15 12:21. Trough therapeutic: ??5-15 ng/mL Blood specimen (specimen) 09/28/2015 9:35 AM EDT 09/28/2015 11:12 AM EDT Narrative Resulting Agency Comment Spec In Lab Jennifer Amaro MD CHEMISTRY ORDTiny JENNINGS Performing Organization Address City/[facility]/ZIP Co de Phone Number [facility] [place] [address] * (ABNORMAL) Urinalysis with reflex Culture (09/28/2015 [...] [facility] Leukocytes, Urine Dipstick Trace(A) Negative [facility] Appearance, Urine Dipstick Clear Clear [facility] Specific [place] Urine Automated 1.025 1.002 - 1.030 [facility] Color, Urine Dipstick Yellow Yellow [facility] RBC, Urine 70(H) 0 - 3 /HPF [facility] WBC, Urine 13(H) 0 - 3 /HPF [facility] Reflex to Culture Yes [facility] Urine specimen obtained by clean catch procedure (specimen) 09/28/2015 9:35 AM EDT 09/28/2015 9:57 AM EDT Narrative Resulting Agency Comment Spec In Lab Jennifer Amaro MD URINE ORDERABL ES [facility] [place] [address] * (ABNORMAL) Reticulocyte Count (09/28/2015 9:35 AM EDT) Reticulocyte % 4.7(H) 0.5 - 2.4 % [facility] Retic Abs # 0.170(H) 0.027 - 0.095 x10(6)/mc L [facility] Immature Retic% 8.0 2.3 - 15.9 % [facility] Reticulated Hgb 37.1 28.5 - 38.9 pg [facility] Immature Plt % 1.2 0.0 - 7.4 % [facility] Blood specimen (specimen) 09/28/2015 9:35 AM EDT 09/28/2015 9:56 AM EDT Narrative Resulting Agency Comment Spec In Lab Jennifer Amaro MD HEMATOLOGY ORD ERABLES Performing Organization Address City/[facility]/[place] [address] * Uric acid (09/28/2015 9:35 AM EDT) Uric Acid 4.9 3.5 - 8.5 mg/dL [facility] Blood specimen (specimen) 09/28/2015 9:35 AM EDT 09/28/2015 9:56 AM EDT Narrative Resulting Agency Comment Spec In Lab Jennifer Amaro MD CHEMISTRY ORDTiny JENNINGS Performing Organization Address [facility] [place] [place] [address] * Phosphorus (09/28/2015 9:35 AM EDT) Phosphorus 4.5 2.5 - 4.5 mg/dL [facility] Blood specimen (specimen) 09/28/2015 9:35 AM EDT 09/28/2015 9:56 AM EDT Narrative Resulting Agency Comment Spec In Lab Jennifer Amaro MD CHEMISTRY ORDTiny JENNINGS Performing Organization Address City/[facility]/ZIP Co de Phone Number [facility] [place] [address] * (ABNORMAL) Magnesium (09/28/2015 9:35 AM EDT) Magnesium 0.48(L) 0.69 - 1.07 mmol/L [facility] Blood specimen (specimen) 09/28/2015 9:35 AM EDT 09/28/2015 9:56 AM EDT Narrative Resulting Agency Comment Spec In Lab Jennifer Amaro MD CHEMISTRY ORDTiny [employer]ORE Performing Organization Address City/[facility] Co de Phone Number [facility] [place] [address] * Cholesterol, total (09/28/2015 9:35 AM EDT) Cholesterol, Total 186 <=199 mg/dL [facility] Comment: Recommendations of the NCEP Adult Treatment Panel for the following risk cutoff thresholds for the [place] population: Desirable: <200 mg/dL Borderline High: 200-239 mg/dL High: > or = 240 mg/dL Blood specimen (specimen) 09/28/2015 9:35 AM EDT 09/28/2015 9:56 AM EDT Narrative Resulting Agency Comment Spec In Lab Jennifer Amaro MD CHEMISTRY ORDAldermore Bank plcLENORE Performing Organization Address [facility]/ZIP Co de Phone Number [facility] [place] [address] * (ABNORMAL) Comprehensive metabolic panel (non-fasting) (09/28/2015 9:35 AM EDT) Glucose 148 65 - 199 mg/dL [facility] Comment:Diabetes: >=200 mg/d L plus symptoms Blood Urea Nitrogen 31(H) 10 - 20 mg/dL [facility] Creatinine 1.50 0.80 - 1.50 mg/dL [facility] Comment: Please note that the pediatric reference intervals supplied above were not validated [place] [facility] Results from pediatric patients should be interpreted in conjunction to the patient's age, height and muscle mass. Sodium 136 135 - 145 mmol/L [facility] Potassium 4.9 3.5 - 5.0 mmol/L [facility] Comment: Please note: ??Patients with WBC >100,000 may have falsely elevated Potassium levels. ??For accurate Potassium quantification in these patients send serum separator tube (gold top) for subsequent determinations. ??Contact the Clinical Chemistry Laboratory if there are any questions. Chloride 101 98 - 107 mmol/L [facility] Carbon Dioxide 24 22 - 31 mmol/L [facility] Anion Gap 11 5 - 15 mmol/L [facility] Calcium 9.0 8.5 - 10.5 mg/dL [facility] Protein, Total 6.7 6.1 - 8.0 gm/dL [facility] Albumin 3.7 3.2 - 5.2 gm/dL [facility] Aspartate Aminotransferase 20 0 - 39 unit/L [facility] Alanine Aminotransferase 37 0 - 55 unit/L [facility] Alkaline Phosphatase 72 40 - 120 unit/L [facility] Bilirubin, Total 0.7 0.2 - 1.3 mg/dL [facility] Bilirubin, Direct 0.2 0.0 - 0.3 mg/dL [facility] Est Glomerular Filtration Rate 47(L) >=60 [facility] Comment: This [...] the following links into your internet browser. [email or web address] [email or web address] Blood specimen (specimen) 09/28/2015 9:35 AM EDT 09/28/2015 9:56 AM EDT Narrative Resulting Agency Comment Spec In Lab Jennifer Amaro MD CHEMISTRY ROCHELLE JENNINGS [facility] [place] [address] documented in this encounter Visit Diagnoses Diagnosis H/O kidney transplant Kidney replaced by transplant documented in this encounter Care Teams Services Executive Relationship Specialty Start Date End Date Urbano Denis DO [address] [place] [address] PCP - General 09/03/12 03/17/22 Hai STANLEY,Ruchi Nurse Clinic Transplant Surgery 07/30/15 documented as of this encounter
--- OUTSIDE RECORDS SUMMARY | 2024-05-16 17:38 | XMS_ITS | Encounter Summary ---
Author Organization [facility] [address] Care Team Providers Care Shoe Cutter Name Role Phone Urbano Denis DO Primary Care Provider Encounter Details Date Type Department Care Team (Late st Contact Info) Description 10/12/2015 10:00 AM EDT Office Visit [place] [address] Que Amaro MD [facility] DR [place] [address] Kidney replaced by transplant Social History Tobacco [...] TOUCH ULTRAMINI Kit 0 ??? ONE TOUCH DELAppe[employer] LANCETS 30 gauge Misc 0 No current [...] EXTREMITY performed by Que Amaro MD at [facility] MAIN OR ??? Pro transplantation of kidney N/A 09/16/2015 @KIDNEY TRANSPLANT, WITHOUT RECIPIENT NEPHRECTOMY performed by Franko Larkin MD at [facility] MAIN OR ??? Pro transplant, prep cadaver renal graft N/A 09/16/2015 @PREPARATION CADAVERIC RENAL ALLOGRAFT performed by Franko Larkin MD at [facility] MAIN OR ??? N/A 09/16/2015 ORGAN ACQUISITION RENAL, CADAVERIC performed by Franko Larkin MD at [facility] MAIN OR Family History: No family [...] st Contact Info) Description 06/22/2024 11:00 AM [facility] Visit (TeleHealth) Cardiology at [address] [phone] Byron Brown MD [facility] [place] [address] 07/14/2024 10:00 AM EST Hospital Encounter Non-[place] [phone] Arrived documented as of this encounter Procedures [...] from urine. 10,000-49,000 cfu/ml Enterococcus species (A) [facility] Organism Enterococcus species(A) [facility] Organism Coagulase negative Staphylococcus species(A) [facility] Urine specimen obtained [...] Que Amaro MD MICROBIOLOGY - GENERAL ORDERABLES [facility] [place] [address] * (ABNORMAL) Urinalysis with reflex Culture (10/12/2015 [...] [facility] Blood, Urine Dipstick Small(A) Negative mg/dL [facility] Ketone, Urine Dipstick Negative Negative mg/dL [facility] Nitrite, Urine Dipstick Negative Negative [facility] Leukocytes, Urine Dipstick Trace(A) Negative [facility] Appearance, Urine Dipstick Clear Clear [facility] Specific [place] Urine Automated 1.013 1.002 - 1.030 [facility] Color, Urine Dipstick Yellow Yellow [facility] RBC, Urine <1 0 - 3 /HPF [facility] WBC, Urine 11(H) 0 - 3 /HPF [facility] WBC Clumps, Urine Rare(A) None /HPF [facility] Bacteria, Urine Rare(A) None /HPF [facility] Transitional Epithelial Cells, Urine 1 <=1 /HPF [facility] Reflex to Culture Yes [facility] Urine specimen obtained by clean catch procedure (specimen) 10/12/2015 10:00 AM EDT 10/12/2015 10:00 AM EDT Narrative Resulting Agency Comment Spec In Lab Que Amaro MD URINE ORDERABL ES [facility] [place] [address] * Protein/Creatinine Ratio, urine (10/12/2015 9:50 AM EDT) Creatinine, Urine 69 mg/dL [facility] Protein, Urine 9 0 - 12 mg/dL [facility] Protein / Creatinine Ratio, Urine 0.1 ratio [facility] Urine specimen (specimen) 10/12/2015 9:50 AM EDT 10/12/2015 10:03 AM EDT Narrative Resulting Agency Comment Spec In Lab Que Amaro MD URINE ORDERABL ES [facility] [place] [address] documented in this encounter Visit Diagnoses Diagnosis Kidney replaced by transplant documented in this encounter Care Teams Shoe Cutter Relationship Specialty Start Date End Date Urbano Denis DO [address] [place] [address] PCP - General 09/03/12 03/17/22 Ruchi Valles RN Nurse Clinic Transplant Surgery 07/30/15 documented as of this encounter
--- OUTSIDE RECORDS SUMMARY | 2024-05-16 17:38 | XMS_ITS | Encounter Summary ---
Author Organization [facility] Address [facility] [place] [address] Care Team Providers Care Supply Chain Associate Name Role Phone Urbano Denis DO Primary Care Provider [phone] Reason for Visit * Reason Comments Kidney Transplant Follow-up Encounter Details Date Type Department Care Team (Late st Contact Info) Description 10/05/2015 9:30 AM EDT Office Visit [place] [address] Larry Larkin MD [facility] [place] [address] H/O kidney transplant Social History Tobacco Use [...] NEPHRECTOMY performed by Larry Larkin MD at [facility] OR ??? Pro transplant, prep cadaver renal graft N/A 09/16/2015 @PREPARATION CADAVERIC RENAL ALLOGRAFT performed by Larry Larkin MD at [facility] MAIN OR ??? N/A 09/16/2015 ORGAN ACQUISITION RENAL, CADAVERIC performed by Larry Larkin MD at [facility] MAIN OR Family History: No family history [...] Bell, RD - 10/05/2015 12:37 PM EDT [facility] Post Transplant Nutrition Follow Up Date: 10/05/2015 Patient: Cody Bolden Transplant Date: 09/16/15 [place] [...] Value Date CHLPL 193 10/05/2015 Assessment: This insurance writer provided patient with a copy of [...] EST TH Visit (TeleHealth) Cardiology at [address] [phone] Byron Brown MD [facility] [place] [address] 07/14/2024 10:00 AM EST Hospital Encounter Non-[place] [phone] Arrived documented as of this encounter Procedures [...] EDT) Glucose 134 65 - 199 mg/dL [facility] Comment:Diabetes: >=200 mg/d L plus symptoms Blood Urea Nitrogen 19 10 - 20 mg/dL [facility] Creatinine 1.47 0.80 - 1.50 mg/dL [facility] Protein, Total 7.0 6.1 - 8.0 gm/dL [facility] Albumin 3.9 3.2 - 5.2 gm/dL [facility] Aspartate Aminotransferase 18 0 - 39 unit/L [facility] Alanine Aminotransferase 27 0 - 55 unit/L [facility] Alkaline Phosphatase 92 40 - 120 unit/L [facility] Bilirubin, Total 0.8 0.2 - 1.3 mg/dL [facility] Bilirubin, Direct 0.1 0.0 - 0.3 mg/dL [facility] Est Glomerular Filtration Rate 48(L) >=60 [facility] Comment: This [...] the following links into your internet browser. [email or web address] [email or web address] Blood specimen (specimen) 10/12/2015 9:45 AM EDT 10/12/2015 9:57 AM EDT Narrative Resulting Agency Comment Spec In Lab Que Amaro MD CHEMISTRY ROCHELLE JENNINGS Performing Organization Address [facility] Co de Phone Number [facility] [place] [address] * Tacrolimus level (10/12/2015 9:45 AM EDT) Tacrolimus 5.9 ng/mL [facility] Comment:Trough therapeutic: 5-15 ng/mL Blood specimen (specimen) 10/12/2015 9:45 AM EDT 10/12/2015 11:13 AM EDT Narrative Resulting Agency Comment Spec In Lab Que Amaro MD CHEMISTRY ROCHELLE JENNINGS Performing Organization Address [facility] Co de Phone Number [facility] [place] [address] * (ABNORMAL) Reticulocyte Count (10/12/2015 9:45 AM EDT) Reticulocyte % 3.1(H) 0.5 - 2.4 % [facility] Retic Abs # 0.130(H) 0.027 - 0.095 x10(6)/mc L [facility] Immature Retic% 15.1 2.3 - 15.9 % [facility] Reticulated Hgb 34.9 28.5 - 38.9 pg [facility] Immature Plt % 1.0 0.0 - 7.4 % [facility] Blood specimen (specimen) 10/12/2015 9:45 AM EDT 10/12/2015 9:57 AM EDT Narrative Resulting Agency Comment Spec In Lab Que Amaro MD HEMATOLOGY ORD ERABG Performing Organization Address City/[facility] Co de Phone Number [facility] [place] [address] * Uric acid (10/12/2015 9:45 AM EDT) Uric Acid 6.3 3.5 - 8.5 mg/dL [facility] Blood specimen (specimen) 10/12/2015 9:45 AM EDT 10/12/2015 9:57 AM EDT Narrative Resulting Agency Comment Spec In Lab Que Amaro MD CHEMISTRY ROCHELLE JENNINGS Performing Organization Address City/[facility]/ZIP Co de Phone Number [facility] [place] [address] * (ABNORMAL) Phosphorus (10/12/2015 9:45 AM EDT) Phosphorus 2.4(L) 2.5 - 4.5 mg/dL [facility] Blood specimen (specimen) 10/12/2015 9:45 AM EDT 10/12/2015 9:57 AM EDT Narrative Resulting Agency Comment Spec In Lab Que Amaro MD CHEMISTRY ROCHELLE JENNINGS Performing Organization Address City/[facility]/ZIP Co de Phone Number [facility] [place] [address] * (ABNORMAL) Magnesium (10/12/2015 9:45 AM EDT) Pathologist [facility] Magnesium 0.54(L) 0.69 - 1.07 mmol/L [facility] Blood specimen (specimen) 10/12/2015 9:45 AM EDT 10/12/2015 9:57 AM EDT Narrative Resulting Agency Comment Spec In Lab Que Amaro MD CHEMISTRY ORDTiny JENNINGS [facility] [place] [address] * (ABNORMAL) Cholesterol, total (10/12/2015 9:45 AM EDT) Cholesterol, Total 211(H) <=199 mg/dL [facility] Comment: Recommendations of the NCEP Adult Treatment Panel for the following risk cutoff thresholds for the [place] population: Desirable: <200 mg/dL Borderline High: 200-239 mg/dL High: > or = 240 mg/dL Blood specimen (specimen) 10/12/2015 9:45 AM EDT 10/12/2015 9:57 AM EDT Narrative Resulting Agency Comment Spec In Lab Que Amaro MD CHEMISTRY ORDTiny JENNINGS Performing Organization Address [facility]/ZIP Co de Phone Number [facility] [place] [address] * Urine culture (10/05/2015 8:45 AM EDT) Pathologist [facility] Urine Culture No growth (Less than 1,000 cfu/ml). [facility] Urine specimen obtained by clean catch procedure (specimen) 10/05/2015 8:45 AM EDT 10/05/2015 10:03 AM EDT Narrative Resulting Agency Comment Spec In Lab Larry Larkin MD MICROBIOLOGY - GENER AL ORDERABLES Performing Organization Address [facility] Co de Phone Number [facility] [place] [address] * (ABNORMAL) Urinalysis with reflex Culture (10/05/2015 [...] CENTER [facility] Leukocytes, Urine Dipstick Negative Negative [facility] Appearance, Urine Dipstick Clear Clear [facility] Specific [place] Urine Automated 1.023 1.002 - 1.030 [facility] Color, Urine Dipstick Yellow Yellow [facility] RBC, Urine 2 0 - 3 /HPF [facility] WBC, Urine 8(H) 0 - 3 /HPF [facility] WBC Clumps, Urine Rare(A) None /HPF [facility] Reflex to Culture Yes [facility] Urine specimen obtained by clean catch procedure (specimen) 10/05/2015 8:45 AM EDT 10/05/2015 9:12 AM EDT Narrative Resulting Agency Comment Spec In Lab Larry Larkin MD URINE ORDERABLES [facility] [place] [address] * Green Tube HOLD (10/05/2015 8:00 AM EDT) Green Hold Sample in lab. [facility] Blood specimen (specimen) Venous Draw / Unknown 10/05/2015 8:00 AM EDT 10/05/2015 9:08 AM EDT Larry Larkin MD CHEMISTRY ORDERABLES [facility] [place] [address] * Differential, Automated (10/05/2015 8:00 AM EDT) Neutrophil % 63.0 % [facility] Neutrophil Absolute 5.57 1.50 - 6.30 x10(3)/[facility] Lymph % 28.9 % [facility] Lymphocytes Abs 2.6 1.0 - 3.6 x10(3)/[facility] Monocyte % 3.4 % [facility] Monocyte Abs 0.3 0.2 - 1.0 x10(3)/[facility] Eos % 2.8 % [facility] Eosinophils Abs 0.2 0.0 - 0.5 x10(3)/[facility] Basophil % 1.6 % [facility] Baso Absolute 0.1 0.0 - 0.2 x10(3)/[facility] Immature Gran % 0.30 % [facility] [...] Absolute 0.03 0.00 - 0.05 x10(3)/[facility] Blood specimen (specimen) 10/05/2015 8:00 AM EDT 10/05/2015 9:07 AM EDT Narrative Resulting Agency Comment Spec In Lab Larry Larkin MD HEMATOLOGY ORDERABLE S Performing Organization Address City/State/[facility] Co de Phone Number [facility] [place] [address] * (ABNORMAL) Hemogram (10/05/2015 8:00 AM EDT) White Blood Cell 8.8 4.0 - 10.0 x10(3)/mc L [facility] Red Blood Cell 3.97(L) 4.63 - 6.08 x10(6)/mc L [facility] Hemoglobin 12.7(L) 13.7 - 17.5 gm/dL [facility] Hematocrit 36.5(L) 40.0 - 51.0 % [facility] Mean Cell Volume 91.9 79.0 - 92.0 fL [facility] Mean Cell Hemoglobin 32.0 25.6 - 32.2 pg [facility] Mean Cell Hemoglobin Concentration 34.8 32.0 - 36.5 gm/dL [facility] Platelet 239 145 - 370 x10(3)/mc L [facility] RDW Standard Deviation 52.0(H) 35.0 - 46.0 fL [facility] RDW coefficient of variation 15.6(H) 10.9 - 14.4 % [facility] Mean Platelet Volume 9.4 9.0 - 12.0 fL [facility] Blood specimen (specimen) 10/05/2015 8:00 AM EDT 10/05/2015 9:07 AM EDT Narrative Resulting Agency Comment Spec In Lab Larry Larkin MD HEMATOLOGY ORDERABLE S Performing Organization Address City/[facility]/ZIP Co de Phone Number [facility] [place] [address] * Tacrolimus level (10/05/2015 8:00 AM EDT) Pathologist [facility] Tacrolimus 5.4 ng/mL [facility] Comment:Trough therapeutic: 5-15 ng/mL Blood specimen (specimen) 10/05/2015 8:00 AM EDT 10/05/2015 10:50 AM EDT Narrative Resulting Agency Comment Spec In Lab Larry Larkin MD CHEMISTRY ORDERABLES Performing Organization Address City/[facility]/ZIP Co de Phone Number [facility] [place] [address] * (ABNORMAL) Reticulocyte Count (10/05/2015 8:00 AM EDT) Pathologist [facility] Reticulocyte % 3.0(H) 0.5 - 2.4 % [facility] Retic Abs # 0.120(H) 0.027 - 0.095 x10(6)/mc L [facility] Immature Retic% 6.5 2.3 - 15.9 % [facility] Reticulated Hgb 34.2 28.5 - 38.9 pg [facility] Immature Plt % 1.2 0.0 - 7.4 % [facility] Blood specimen (specimen) 10/05/2015 8:00 AM EDT 10/05/2015 9:07 AM EDT Narrative Resulting Agency Comment Spec In Lab Larry Larkin MD HEMATOLOGY ORDERABLE S Performing Organization Address [facility] Co de Phone Number [facility] [place] [address] * (ABNORMAL) Magnesium (10/05/2015 8:00 AM EDT) Magnesium 0.58(L) 0.69 - 1.07 mmol/L [facility] Blood specimen (specimen) 10/05/2015 8:00 AM EDT 10/05/2015 9:07 AM EDT Narrative Resulting Agency Comment Spec In Lab Larry Larkin MD CHEMISTRY ORDERABLES Performing Organization Address [facility] Co de Phone Number [facility] [place] [address] * Phosphorus (10/05/2015 8:00 AM EDT) Phosphorus 3.0 2.5 - 4.5 mg/dL [facility] Blood specimen (specimen) 10/05/2015 8:00 AM EDT 10/05/2015 9:07 AM EDT Narrative Resulting Agency Comment Spec In Lab Larry Larkin MD CHEMISTRY ORDERABLES Performing Organization Address [facility] Co de Phone Number [facility] [place] [address] * Uric acid (10/05/2015 8:00 AM EDT) Uric Acid 6.0 3.5 - 8.5 mg/dL [facility] Blood specimen (specimen) 10/05/2015 8:00 AM EDT 10/05/2015 9:07 AM EDT Narrative Resulting Agency Comment Spec In Lab Larry Larkin MD CHEMISTRY ORDERABLES [facility] [place] [address] * (ABNORMAL) Comprehensive metabolic panel (non-fasting) (10/05/2015 8:00 AM EDT) Glucose 137 65 - 199 mg/dL [facility] Comment:Diabetes: >=200 mg/d L plus symptoms Blood Urea Nitrogen 21(H) 10 - 20 mg/dL [facility] Creatinine 1.45 0.80 - 1.50 mg/dL [facility] Comment: Please note that the pediatric reference intervals supplied above were not validated at [facility]. Results from pediatric patients should be interpreted in conjunction to the patient's age, height and muscle mass. Sodium 137 135 - 145 mmol/L [facility] Potassium 4.0 3.5 - 5.0 mmol/L [facility] Albumin 3.9 3.2 - 5.2 gm/dL [facility] Aspartate Aminotransferase 17 0 - 39 unit/L [facility] Alanine Aminotransferase 24 0 - 55 unit/L [facility] Alkaline Phosphatase 85 40 - 120 unit/L [facility] Bilirubin, Total 0.7 0.2 - 1.3 mg/dL [facility] Bilirubin, Direct 0.1 0.0 - 0.3 mg/dL [facility] Est Glomerular Filtration Rate 49(L) >=60 [facility] Comment: This [...] the following links into your internet browser. [email or web address] Blood specimen (specimen) 10/05/2015 8:00 AM EDT 10/05/2015 9:07 AM EDT Narrative Resulting Agency Comment Spec In Lab Larry Larkin MD CHEMISTRY ORDERABLES Performing Organization Address [facility] Co de Phone Number [facility] [place] [address] * Cholesterol, total (10/05/2015 8:00 AM EDT) Cholesterol, Total 193 <=199 mg/dL [facility] Comment: Recommendations of the NCEP Adult Treatment Panel for the following risk cutoff thresholds for the [place] population: Desirable: <200 mg/dL Borderline High: 200-239 mg/dL High: > or = 240 mg/dL Blood specimen (specimen) 10/05/2015 8:00 AM EDT 10/05/2015 9:07 AM EDT Narrative Resulting Agency Comment Spec In Lab Larry Larkin MD CHEMISTRY ORDERABLES Performing Organization Address City/[facility]/ZIP Co de Phone Number [facility] [place] [address] documented in this encounter Visit Diagnoses Diagnosis H/O kidney transplant Kidney replaced by transplant documented in this encounter Care Teams Supply Chain Associate Relationship Specialty Start Date End Date Urbano Denis DO [address] [place] [address] PCP - General 09/03/12 03/17/22 Ruchi Valles RN Nurse Clinic Transplant Surgery 07/30/15 documented as of this encounter
--- OUTSIDE RECORDS SUMMARY | 2024-05-16 17:38 | XMS_ITS | Encounter Summary ---
Author Organization [facility] [place] [address] Care Team Providers Care Grid Trimmer Name Role Phone AdeelUrbano boland Primary Care Provider Encounter Details Date Type Department Care Team (Late st Contact Info) Description 09/21/2015 Abstract [place] [address] Clark Bro Social History Tobacco [...] EST TH Visit (TeleHealth) Cardiology at [address] [phone] Byron Brown MD [facility] [place] [address] 07/14/2024 10:00 AM EST Hospital Encounter Non[place] [address] Arrived documented as of this encounter Visit Diagnoses Not on filedocumented in this encounter Care Teams Grid Trimmer Relationship Specialty Start Date End Date Adeel DO Urbano [address] [place] [address] PCP - General 09/03/12 03/17/22 Ruchi Valles RN Nurse Clinic Transplant Surgery 07/30/15 documented as of this encounter
--- OUTSIDE RECORDS SUMMARY | 2024-05-16 17:38 | XMS_ITS | Encounter Summary ---
Author Organization [facility] [place] [address] Care Team Providers Care Solar Hot Water Installer Name Role Phone Urbano Denis DO Primary Care Provider [phone] Encounter Details Date Type Department Care Team (Late st Contact Info) Description 09/20/2015 Notes Only Solid Organ Transplant at [facility] [place] [address] Chapin Lehman, DEDE Social History Tobacco Use [...] AM EST TH Visit (TeleHealth) Cardiology at [address] [phone] Byron Brown MD [facility] [place] [address] 07/14/2024 10:00 AM EST Hospital Encounter Non-[place]vasive [place] [address] Arrived documented as of this encounter Visit Diagnoses Not on filedocumented in this encounter Care Teams Solar Hot Water Installer Relationship Specialty Start Date End Date Urbano Denis DO [address] [place] [address] [address] PCP - General 09/03/12 03/17/22 Ruchi Valles RN Nurse Clinic Transplant Surgery 07/30/15 documented as of this encounter
--- OUTSIDE RECORDS SUMMARY | 2024-05-16 17:38 | XMS_ITS | Encounter Summary ---
Author Organization Formerly [facility] [place] [address] Care Team Providers Care Team Sports Sales Associate Name Role Phone Urbano Denis DO Primary Care Provider Encounter Details Date Type Department Care Team (Late st Contact Info) Description 09/25/2015 10:30 AM EDT Office Visit Solid [place] [address] Larry Larkin MD [facility] [place] [address] H/O kidney transplant Social History Tobacco Use [...] Bell, RD - 09/25/2015 2:32 PM EDT [facility] Post Transplant Nutrition Follow Up Date: 09/25/2015 Patient: Cody Bolden Transplant Date: 09/16/15 [place] organ UNOS diagnosis: Transplant: Mr. [...] Value Date CHLPL 149 09/25/2015 Assessment: This curriculum writer provided patient with [...] NEPHRECTOMY performed by Larry Larkin MD at [facility] MAIN OR ??? Pro transplant, prep cadaver renal graft N/A 09/16/2015 @PREPARATION CADAVERIC RENAL ALLOGRAFT performed by Larry Larkin MD at [facility] [...] EST TH Visit (TeleHealth) Cardiology at [address] [address] Byron Brown MD [facility] [place] [address] 07/14/2024 10:00 AM EST Hospital Encounter Non-Invasive [place] [address] Arrived documented as of this encounter Procedures [...] Larkin MD MICROBIOLOGY - GENER AL ORDERABLES [facility] [place] [address] * (ABNORMAL) Urinalysis with reflex Culture (09/25/2015 9:55 AM EDT) Glucose, Urine Dipstick 50(A) Negative mg/dL [facility] [...] [facility] Blood, Urine Dipstick Large(A) Negative mg/dL [facility] Ketone, Urine Dipstick Negative Negative mg/dL [facility] Nitrite, Urine Dipstick Negative Negative [facility] Leukocytes, Urine Dipstick Trace(A) Negative [facility] Appearance, Urine Dipstick Clear Clear [facility] Specific Lookout Urine Automated 1.021 1.002 - 1.030 [facility] Color, Urine Dipstick Yellow Yellow [facility] RBC, Urine 172(H) 0 - 3 /HPF [facility] WBC, Urine 12(H) 0 - 3 /HPF [facility] WBC Clumps, Urine Rare(A) None /HPF [facility] Hyaline Casts, Urine 1 0 - 2 /LPF [facility] Granular Casts, Urine 1(H) <=0 /LPF [facility] Reflex to Culture Yes [facility] Urine specimen obtained by clean catch procedure (specimen) 09/25/2015 9:55 AM EDT 09/25/2015 10:09 AM EDT Narrative Resulting Agency Comment Spec In Lab Larry Larkin MD URINE ORDERABLES Performing Organization Address [facility] Co de Phone Number [facility] [place] [address] * Green Tube HOLD (09/25/2015 9:40 AM EDT) Green Hold Sample in lab. [facility] Blood specimen (specimen) Venous Draw / Unknown 09/25/2015 9:40 AM EDT 09/25/2015 9:54 AM EDT Larry Larkin MD CHEMISTRY ORDERABLES Performing Organization Address City/[facility] Co de Phone Number [facility] [place] [address] * (ABNORMAL) Differential, Automated (09/25/2015 9:40 AM EDT) Neutrophil % 66.2 % [facility] Neutrophil Absolute 6.81(H) 1.50 - 6.30 x10(3)/mc L [facility] Lymph % 22.8 % [facility] Lymphocytes Abs 2.4 1.0 - 3.6 x10(3)/mc L [facility] Monocyte % 5.7 % [facility] Monocyte Abs 0.6 0.2 - 1.0 x10(3)/mc L [facility] Eos % 3.5 % [facility] Eosinophils Abs 0.4 0.0 - 0.5 x10(3)/mc L [facility] Basophil % 0.1 % [facility] Baso Absolute 0.0 0.0 - 0.2 x10(3)/ L [facility] Immature Gran % 1.70 % [facility] Comment: Immature granulocytes(IG's)percentage and absolute count will include metamyelocytes, myelocytes, and promyelocytes. Blood smears from CBCs yielding IG's will be scanned manually for concordance. If this scan disagrees with the automated IG or if promyelocytes are noted, a manual differential will be performed. Immature Gran Absolute 0.18(H) 0.00 - 0.05 x10(3)/ L [facility] Blood specimen (specimen) 09/25/2015 9:40 AM EDT 09/25/2015 9:53 AM EDT Narrative Resulting Agency Comment Spec In Lab Larry Larkin MD HEMATOLOGY ORDERABLE S [facility] [place] [address] * (ABNORMAL) Hemogram (09/25/2015 9:40 AM EDT) White Blood Cell 10.3(H) 4.0 - 10.0 x10(3)/ L [facility] Red Blood Cell 3.29(L) 4.63 - 6.08 x10(6)/mc L [facility] Hemoglobin 10.4(L) 13.7 - 17.5 gm/dL [facility] Hematocrit 30.5(L) 40.0 - 51.0 % [facility] Mean Cell Volume 92.7(H) 79.0 - 92.0 fL [facility] Mean Cell Hemoglobin 31.6 25.6 - 32.2 pg [facility] Mean Cell Hemoglobin Concentration 34.1 32.0 - 36.5 gm/dL [facility] Platelet 271 145 - 370 x10(3)/ L [facility] RDW Standard Deviation 48.1(H) 35.0 - 46.0 fL [facility] RDW coefficient of variation 14.6(H) 10.9 - 14.4 % [facility] Mean Platelet Volume 9.3 9.0 - 12.0 fL [facility] Blood specimen (specimen) 09/25/2015 9:40 AM EDT 09/25/2015 9:53 AM EDT Narrative Resulting Agency Comment Spec In Lab Larry Larkin MD HEMATOLOGY ORDERABLE S Performing Organization Address [facility] Co de Phone Number [facility] [place] [address] * Tacrolimus level (09/25/2015 9:40 AM EDT) Tacrolimus 11.2 ng/mL [facility] Comment:Trough therapeutic: 5-15 ng/mL Blood specimen (specimen) 09/25/2015 9:40 AM EDT 09/25/2015 11:07 AM EDT Narrative Resulting Agency Comment Spec In Lab Larry Larkin MD CHEMISTRY ORDERABLES Performing Organization Address [facility] Co de Phone Number [facility] [place] [address] * (ABNORMAL) Reticulocyte Count (09/25/2015 9:40 AM EDT) Reticulocyte % 4.4(H) 0.5 - 2.4 % [facility] Retic Abs # 0.140(H) 0.027 - 0.095 x10(6)/mc L [facility] Immature Retic% 8.2 2.3 - 15.9 % [facility] Reticulated Hgb 37.9 28.5 - 38.9 pg [facility] Immature Plt % 0.9 0.0 - 7.4 % [facility] Blood specimen (specimen) 09/25/2015 9:40 AM EDT 09/25/2015 9:53 AM EDT Narrative Resulting Agency Comment Spec In Lab Larry Larkin MD HEMATOLOGY ORDERABLE S Performing Organization Address City/[facility]/ZIP Co de Phone Number [facility] [place] [address] * Uric acid (09/25/2015 9:40 AM EDT) Uric Acid 5.6 3.5 - 8.5 mg/dL [facility] Blood specimen (specimen) 09/25/2015 9:40 AM EDT 09/25/2015 9:53 AM EDT Narrative Resulting Agency Comment Spec In Lab Larry Larkin MD CHEMISTRY ORDERABLES Performing Organization Address [facility] Co de Phone Number [facility] [place] [address] * (ABNORMAL) Phosphorus (09/25/2015 9:40 AM EDT) Phosphorus 2.2(L) 2.5 - 4.5 mg/dL [facility] Blood specimen (specimen) 09/25/2015 9:40 AM EDT 09/25/2015 9:53 AM EDT Narrative Resulting Agency Comment Spec In Lab Larry Larkin MD CHEMISTRY ORDERABLES Performing Organization Address [facility] Co de Phone Number [facility] [place] [address] * (ABNORMAL) Magnesium (09/25/2015 9:40 AM EDT) Magnesium 0.57(L) 0.69 - 1.07 mmol/L [facility] Blood specimen (specimen) 09/25/2015 9:40 AM EDT 09/25/2015 9:53 AM EDT Narrative Resulting Agency Comment Spec In Lab Larry Larkin MD CHEMISTRY ORDERABLES Performing Organization Address City/[facility]/ZIP Co de Phone Number [facility] [place] [address] * (ABNORMAL) Comprehensive metabolic panel (non-fasting) (09/25/2015 9:40 AM EDT) Glucose 151 65 - 199 mg/dL [facility] Comment:Diabetes: >=200 mg/d L plus symptoms Blood Urea Nitrogen 39(H) 10 - 20 mg/dL [facility] Creatinine 1.65(H) 0.80 - 1.50 mg/dL [facility] Comment: Please note that the pediatric reference intervals supplied above were not validated at [facility]. Results from pediatric patients should be interpreted in conjunction to the patient's age, height and muscle mass. Sodium 138 135 - 145 mmol/L [facility] Potassium 4.4 3.5 - 5.0 mmol/L [facility] Protein, Total 6.4 6.1 - 8.0 gm/dL [facility] Albumin 3.3 3.2 - 5.2 gm/dL [facility] Aspartate Aminotransferase 19 0 - 39 unit/L [facility] Alanine Aminotransferase 33 0 - 55 unit/L [facility] Alkaline Phosphatase 60 40 - 120 unit/L [facility] Bilirubin, Total 0.7 0.2 - 1.3 mg/dL [facility] Bilirubin, Direct 0.2 0.0 - 0.3 mg/dL [facility] Est Glomerular Filtration Rate 42(L) >=60 [facility] Comment: [...] the following links into your internet browser. [email or web address] Blood specimen (specimen) 09/25/2015 9:40 AM EDT 09/25/2015 9:53 AM EDT Narrative Resulting Agency Comment Spec In Lab Larry Larkin MD CHEMISTRY ORDERABLES Performing Organization Address [facility] Co de Phone Number [facility] [place] [address] * Cholesterol, total (09/25/2015 9:40 AM EDT) Cholesterol, Total 149 <=199 mg/dL [facility] [...] Larkin MD CHEMISTRY ORDERABLES Performing Organization Address City/[facility] Co de Phone Number [facility] [place] [address] documented in this encounter Visit Diagnoses Diagnosis H/O kidney transplant Kidney replaced by transplant documented in this encounter Care Teams Team Sports Sales Associate Relationship Specialty Start Date End Date Urbano Denis DO [address] [place] [address] PCP - General 09/03/12 03/17/22 Ruchi Valles RN Nurse Clinic Transplant Surgery 07/30/15 documented as of this encounter
--- OUTSIDE RECORDS SUMMARY | 2024-05-16 17:38 | XMS_ITS | Encounter Summary ---
Author Organization Formerly [facility] [place] [address] Care Team Providers Care Medical Research Associate Name Role Phone Urbano Denis DO Primary Care Provider [phone] Encounter Details Date Type Department Care Team (Late st Contact Info) Description 10/04/2015 Telephone [place] [phone] Samia Escalante, RN Social History Tobacco Use [...] tomorrow with Dr. Amaro. Samia Escalante, RN [facility] Solid Organ Transplant [phone] (Pager: [phone]) documented in this encounter Plan of Treatment Upcoming Encounters Date Type Department Care Team (Late st Contact Info) Description 06/22/2024 11:00 AM EST TH Visit (TeleHealth) Cardiology at [address] [address] Byron Brown MD [facility] [place] [address] 07/14/2024 10:00 AM EST Hospital Encounter [place] [phone] Arrived documented as of this encounter Visit Diagnoses Not on filedocumented in this encounter Care Teams Medical Research Associate Relationship Specialty Start Date End Date Urbano Denis DO [address] [place] [address] [address] [facility] [address] [place] [address] PCP - General 09/03/12 03/17/22 Ruchi Valles RN Nurse Clinic Transplant Surgery 07/30/15 documented as of this encounter
--- OUTSIDE RECORDS SUMMARY | 2024-05-16 17:38 | XMS_ITS | Encounter Summary ---
Author [place] [address] Care Team Providers Care Detasseling Crew Supervisor Name Role Phone AdeelUrbano toscano Primary Care Provider [phone] Encounter Details Date Type Department Care Team (Late st Contact Info) Description 10/01/2015 Telephone Solid [place] [phone] Samia Escalante, RN Social History Tobacco Use [...] message asking for call-back. Samia Escalante RN [facility] Solid Organ Transplant [phone] (Pager: [phone]) documented in this encounter Plan of Treatment Upcoming Encounters Date Type Department Care Team (Late st Contact Info) Description 06/22/2024 11:00 AM EST TH Visit (TeleHealth) Cardiology at [address] [address] Byron Brown MD [facility] [place] [address] 07/14/2024 10:00 AM EST Hospital Encounter Non-Invasive [place] [address] Arrived documented as of this encounter Visit Diagnoses Not on filedocumented in this encounter Care Teams Detasseling Crew Supervisor Relationship Specialty Start Date End Date Urbano Denis DO [address] [place] [address] PCP - General 09/03/12 03/17/22 Hai STANLEY,Ruchi Nurse Clinic Transplant Surgery 07/30/15 documented as of this encounter
--- OUTSIDE RECORDS SUMMARY | 2024-05-16 17:38 | XMS_ITS | Encounter Summary ---
Author Organization [facility] [place] [address] Care Team Providers Care Portfolio Strategist Name Role Phone Urbano Denis DO Primary Care Provider [phone] Encounter Details Date Type Department Care Team (Late st Contact Info) Description 10/05/2015 Telephone [place] [phone] Marisela Metcalf, RN Social History Tobacco Use [...] EST TH Visit (TeleHealth) Cardiology at [address] [phone] Bryon Brown MD [facility] [place] [address] 07/14/2024 10:00 AM EST Hospital Encounter Non-[place] [phone] Arrived documented as of this encounter Visit Diagnoses Not on filedocumented in this encounter Care Teams Portfolio Strategist Relationship Specialty Start Date End Date Urbano Denis DO [address] [place] [address] [address] [facility] [place] [address] PCP - General 09/03/12 03/17/22 Ruchi Valles RN Nurse Clinic Transplant Surgery 07/30/15 documented as of this encounter
--- OUTSIDE RECORDS SUMMARY | 2024-05-16 17:38 | XMS_ITS | Encounter Summary ---
Author Organization [facility] [place] [address] Care Team Providers Care Heel Seat Fitter Machine Name Role Phone AdeelUrbano toscano Primary Care Provider Encounter Details Date Type Department Care Team (Late st Contact Info) Description 10/11/2015 Orders [place] [phone] Tulio Marcelo MD [facility] [place] [address] Hepatitis C virus infection without hepatic coma, [...] AM EST Visit (TeleHealth) Cardiology at [address] [phone] Byron Brown MD [facility] [place] [address] 07/14/2024 10:00 AM EST Hospital Encounter Non-[place]vasive [place] [address] Arrived documented as of this encounter Results * Hepatitis C RNA, quantitative, PCR (01/04/2016 1:55 PM EDT) Pathologist [facility] HCV Viral Load 516,252 IU/mL [facility] HCV Viral Load Result: [id number] IU/mL Indication for Study: Hepatitis C Infection Analysis: A quantitiative real time reverse transcriptase PCR assay was performed on extracted viral RNA for the purpose of quantification. Sample: plasma (1 mL minimum volume) Method: Kirsten June TaqMAN 48 HCV Linear Range: 15 IU/mL - 100,000,000IU/mL (95% CI) Note: This assay is being performed in the [facility] Molecular Pathology Laboratory. Gibson Good, Ph.D. Director, Molecular Pathology [facility] Comment: [VERIFIED DATE]01.09.16 Verified By:Fatemeh Garcia (Electronic Signature) Blood specimen (specimen) 01/04/2016 1:55 PM EDT 01/08/2016 8:08 AM EDT Narrative Resulting Agency Comment Spec In Lab Tulio Marcelo MD MOLECULAR ORDERABLE S [facility] [place] [address] * Prothrombin Time (01/04/2016 1:55 PM EDT) Pathologist [facility] Prothrombin Time [...] Lab Tulio Marcelo MD HEMATOLOGY ORDERABL ES [facility] [place] [address] * (ABNORMAL) Comprehensive metabolic panel (non-fasting) (01/04/2016 [...] the following links into your internet browser. [email or web address] Blood specimen (specimen) 01/04/2016 1:55 PM EDT 01/04/2016 2:05 PM EDT Narrative Resulting Agency Comment Spec In Lab Tulio Marcelo MD CHEMISTRY ORDERABLE S [facility] [place] [phone] documented in this encounter Visit Diagnoses Diagnosis Hepatitis C virus infection without hepatic coma, unspecified chronicity documented in this encounter Care Teams Heel Seat Fitter Machine Relationship Specialty Start Date End Date Urbano Denis DO [address] [place] [address] PCP - General 09/03/12 03/17/22 Ruchi Valles RN Nurse Clinic Transplant Surgery 07/30/15 documented as of this encounter
--- OUTSIDE RECORDS SUMMARY | 2024-05-16 17:38 | XMS_ITS | Encounter Summary ---
Author Organization [facility] [place] [address] Care Team Providers Care Pig Machine Crane Operator Name Role Phone Adeel Urbano KIRBY Primary Care Provider Encounter Details Date Type Department Care Team (Latest Contact Info) Description 10/12/2015 9:00 AM EDT Laboratory Appointment Lab [address] [place] [address] H/O kidney transplant; Kidney replaced [...] EST TH Visit (TeleHealth) Cardiology at [address] [address] Byron Brown MD [facility] [address] 07/14/2024 10:00 AM EST Hospital Encounter Non-[place] [address] Arrived documented as of this [...] AM EDT) BKV Urine Result Not Detected [facility] BKV Urine Interp BK Virus [...] DNA isolated from urine was performed using [employer] BKV(ASR) reagents and the [employer] 7500 Fast Real-Time PCR System. In addition, [...] testing. [facility] Comment: [VERIFIED DATE]10.18.15 Verified By:Xiomy Gupta (Electronic Signature) Urine specimen (specimen) 10/12/2015 9:50 AM EDT 10/12/2015 10:41 AM EDT Narrative Resulting Agency Comment Spec In Lab Que Amaro MD HEMATOLOGY ORD MILAGROS Performing Organization Address City/[facility]/ZIP Co de Phone Number [facility] [place] [address] * Gold Tube HOLD (10/12/2015 9:45 AM EDT) Gold Hold Sample in lab. [facility] Blood specimen (specimen) Venous Draw / Unknown 10/12/2015 9:45 AM EDT 10/12/2015 10:09 AM EDT Que Amaro MD CHEMISTRY ORDBhargav JENNINGS Performing Organization Address City/[facility]/ZIP Co de Phone Number [facility] [place] [address] * Differential, Automated (10/12/2015 9:45 AM EDT) Neutrophil % 61.7 % [facility] Neutrophil Absolute 4.69 1.50 - 6.30 x10(3)/mcL [facility] Lymph % 29.2 % [facility] Lymphocytes Abs 2.2 1.0 - 3.6 x10(3)/[facility] Monocyte % 3.7 % [facility] Monocyte Abs 0.3 0.2 - 1.0 x10(3)/[facility] Eos % 3.8 % [facility] Eosinophils Abs 0.3 0.0 - 0.5 x10(3)/[facility] Basophil % 1.2 % [facility] Baso Absolute 0.1 0.0 - 0.2 x10(3)/[facility] Immature Gran % 0.40 % [facility] Comment: Immature granulocytes(IG's)percentage and absolute count will include metamyelocytes, myelocytes, and promyelocytes. Blood smears from CBCs yielding IG's will be scanned manually for concordance. If this scan disagrees with the automated IG or if promyelocytes are noted, a manual differential will be performed. Immature Gran Absolute 0.03 0.00 - 0.05 x10(3)/[facility] Blood specimen (specimen) 10/12/2015 9:45 AM EDT 10/12/2015 9:57 AM EDT Narrative Resulting Agency Comment Spec In Lab Que Amaro MD HEMATOLOGY ORD ERABLES [facility] [place] [address] * (ABNORMAL) Hemogram (10/12/2015 9:45 AM EDT) White Blood Cell 7.6 4.0 - 10.0 x10(3)/ L [facility] Red Blood Cell 4.08(L) 4.63 - 6.08 x10(6)/ L [facility] Hemoglobin 13.0(L) 13.7 - 17.5 gm/dL [facility] Hematocrit 37.7(L) 40.0 - 51.0 % [facility] Mean Cell Volume 92.4(H) 79.0 - 92.[address] [facility] Mean Cell Hemoglobin 31.9 25.6 - 32.[address] [facility] Mean Cell Hemoglobin Concentration 34.5 32.0 - 36.5 gm/dL [facility] Platelet 251 145 - 370 x10(3)/mc L [facility] RDW Standard Deviation 52.6(H) 35.0 - 46.[address] [facility] RDW coefficient of variation 15.7(H) 10.9 - 14.4 % [facility] Mean Platelet Volume 9.1 9.0 - 12.[address] [facility] Blood specimen (specimen) 10/12/2015 9:45 AM EDT 10/12/2015 9:57 AM EDT Narrative Resulting Agency Comment Spec In Lab Que Amaro MD HEMATOLOGY ORD ERABLES [facility] [place] [address] * (ABNORMAL) Comprehensive metabolic panel (non-fasting) (10/12/2015 9:45 AM EDT) Glucose 134 65 - 199 mg/dL [facility] Comment:Diabetes: >=200 mg/d L plus symptoms Blood Urea Nitrogen 19 10 - 20 mg/dL [facility] Creatinine 1.47 0.80 - 1.50 mg/dL [facility] Comment: Please note that the pediatric reference intervals supplied above were not validated at [facility]. Results from pediatric patients should be interpreted in conjunction to the patient's age, height and muscle mass. Sodium 137 135 - 145 mmol/L [facility] [...] mg/dL [facility] Protein, Total 7.0 6.1 - 8.0 gm/dL [facility] Albumin 3.9 3.2 - 5.2 gm/dL [facility] Aspartate Aminotransferase 18 0 - 39 unit/L [facility] Alanine Aminotransferase 27 0 - 55 unit/L [facility] Alkaline Phosphatase 92 40 - 120 unit/L [facility] Bilirubin, Total 0.8 0.2 - 1.3 mg/dL [facility] Bilirubin, Direct 0.1 0.0 - 0.3 mg/dL [facility] Est Glomerular Filtration Rate 48(L) [...] the following links into your internet browser. [email or web address] Blood specimen (specimen) 10/12/2015 9:45 AM EDT 10/12/2015 9:57 AM EDT Narrative Resulting Agency Comment Spec In Lab Que Amaro MD CHEMISTRY ROCHELLE JENNINGS [facility] [place] [address] * Tacrolimus level (10/12/2015 9:45 AM EDT) Tacrolimus 5.9 ng/mL [facility] Comment:Trough therapeutic: 5-15 ng/mL Blood specimen (specimen) 10/12/2015 9:45 AM EDT 10/12/2015 11:13 AM EDT Narrative Resulting Agency Comment Spec In Lab Que Amaro MD CHEMISTRY ORDE DICK Performing Organization Address [facility] Co de Phone Number [facility] [place] [address] * (ABNORMAL) Reticulocyte Count (10/12/2015 9:45 AM EDT) Pathologist [facility] Reticulocyte % 3.1(H) 0.5 - 2.4 % [facility] Retic Abs # 0.130(H) 0.027 - 0.095 x10(6)/mc L [facility] Immature Retic% 15.1 2.3 - 15.9 % [facility] Reticulated Hgb 34.9 28.5 - 38.[address] [facility] Immature Plt % 1.0 0.0 - 7.4 % [facility] Blood specimen (specimen) 10/12/2015 9:45 AM EDT 10/12/2015 9:57 AM EDT Narrative Resulting Agency Comment Spec In Lab Que Amaro MD HEMATOLOGY ORD ERABLES Performing Organization Address [facility] Co de Phone Number [facility] [place] [address] * Uric acid (10/12/2015 9:45 AM EDT) Pathologist [facility] Uric Acid 6.3 3.5 - 8.5 mg/dL [facility] Blood specimen (specimen) 10/12/2015 9:45 AM EDT 10/12/2015 9:57 AM EDT Narrative Resulting Agency Comment Spec In Lab Que Amaro MD CHEMISTRY ROCHELLE JENNINGS Performing Organization Address City/[facility]/ZIP Co de Phone Number [facility] [place] [address] * (ABNORMAL) Phosphorus (10/12/2015 9:45 AM EDT) Phosphorus 2.4(L) 2.5 - 4.5 mg/dL [facility] Blood specimen (specimen) 10/12/2015 9:45 AM EDT 10/12/2015 9:57 AM EDT Narrative Resulting Agency Comment Spec In Lab Que JENNINGS Performing Organization Address [facility] Co de Phone Number [facility] [place] [address] * (ABNORMAL) Magnesium (10/12/2015 9:45 AM EDT) Magnesium 0.54(L) 0.69 - 1.07 mmol/L [facility] Blood specimen (specimen) 10/12/2015 9:45 AM EDT 10/12/2015 9:57 AM EDT Narrative Resulting Agency Comment Spec In Lab Que Amaro MD CHEMISTRY ROCHELLE JENINNGS Performing Organization Address [facility] Co de Phone Number [facility] [place] [address] * (ABNORMAL) Cholesterol, total (10/12/2015 9:45 AM EDT) Cholesterol, Total 211(H) <=199 mg/dL [facility] Comment: Recommendations of the NCEP Adult Treatment Panel for the following risk cutoff thresholds for the [place] population: Desirable: <200 mg/dL Borderline High: 200-239 mg/dL High: > or = 240 mg/dL Blood specimen (specimen) 10/12/2015 9:45 AM EDT 10/12/2015 9:57 AM EDT Narrative Resulting Agency Comment Spec In Lab Que Amaro MD CHEMISTRY ROCHELLE JENNINGS [facility] [place] [address] documented in this encounter Visit Diagnoses Diagnosis H/O kidney transplant Kidney replaced by transplant Kidney replaced by transplant documented in this encounter Care Teams Pig Machine Crane Operator Relationship Specialty Start Date End Date Urbano Denis DO [address] [place] [address] PCP - General 09/03/12 03/17/22 Ruchi Valles RN Nurse Clinic Transplant Surgery 07/30/15 documented as of this encounter
--- OUTSIDE RECORDS SUMMARY | 2024-05-16 17:38 | XMS_ITS | Encounter Summary ---
Author Organization [facility] [place] [address] Care Team Providers Care Net Developer Software Engineer C Name Role Phone Urbano Denis DO Primary Care Provider Encounter Details Date Type Department Care Team (Late st Contact Info) Description 10/08/2015 Telephone [place] [phone] Samia Escalante, RN Social History Tobacco Use [...] that Yash did well over the weekend. [place] fairly fatigued washed out for the better part of yesterday, but symptoms subsided overnight. Pain is getting better without narcotics, and pt is going to drive today for the first time. Pt due back in clinic Thursday with Dr. Amaro. Pt stated understanding of plan of care. No further questions at this time. Advised to call with additional concerns. Samia Escalante, RN [facility] Solid Organ Transplant [phone] (Pager: [phone]) documented in this encounter Plan of Treatment Upcoming Encounters Date Type Department Care Team (Late st Contact Info) Description 06/22/2024 11:00 AM EST Visit (TeleHealth) Cardiology at [address] [phone] Byron Brown MD [facility] [place] [address] 07/14/2024 10:00 AM EST Hospital Encounter Non[place] [address] Arrived documented as of this encounter Visit Diagnoses Not on filedocumented in this encounter Care Teams Net Developer Software Engineer C Relationship Specialty Start Date End Date Urbano Denis DO [address] [place] [address] PCP - General 09/03/12 03/17/22 Hai STANLEY,Ruchi Nurse Clinic Transplant Surgery 07/30/15 documented as of this encounter
--- OUTSIDE RECORDS SUMMARY | 2024-05-16 17:38 | XMS_ITS | Encounter Summary ---
Author Organization [facility] [place] [address] Care Team Providers Care Supervisor Shearing Name Role Phone AdeelUrbano toscano Primary Care Provider Encounter Details Date Type Department Care Team (Late st Contact Info) Description 10/01/2015 Orders [place] [phone] Tulio Marcelo MD [facility] [place] [address] Hepatitis C virus infection without hepatic coma, [...] AM EST Visit (TeleHealth) Cardiology at [address] [phone] Byron Brown MD [facility] [place] [address] 07/14/2024 10:00 AM EST Hospital Encounter Non-Invasive [place] [address] Arrived Pending Results Name Type Priority Associated [...] chronicity documented in this encounter Care Teams Supervisor Shearing Relationship Specialty Start Date End Date Urbano Denis DO [address] [place] [address] [address] [place] [address] PCP - General 09/03/12 03/17/22 Ruchi Valles RN Nurse Clinic Transplant Surgery 07/30/15 documented as of this encounter
--- OUTSIDE RECORDS SUMMARY | 2024-05-16 17:39 | XMS_ITS | Encounter Summary ---
[place] [address] Care Team Providers Care Grade And Center Marker Name Role Phone Albania Nunez DO Primary Care Provider [phone] Reason for Referral * Consultation (Routine) - Closed Specialty Diagnoses / Procedures Referred By Humberto flor Referred To Contact Infectious Diseases Diagnoses Renal transplant recipient Larry Larkin MD [facility] [place] [address] Brian Grande MD [facility] [place] [address] Referral ID Status Reason Start Date Expiration Date V isits Requested Visits Authorized [id number] Closed Assume Subset of Care 09/18/2015 09/17/2016 1 1 Reason for Visit * Auth/Cert Specialty Diagnoses / Procedures Referred By Humberto flor Referred To Contact Diagnoses RENAL FAILURE Kidney transplant. UNOS #[id number] Procedures PRO TRANSPLANTATION OF KIDNEY PRO TRANSPLANT, PREP CADAVER RENAL GRAFT @KIDNEY TRANSPLANT, WITHOUT RECIPIENT NEPHRECTOMY @PREPARATION CADAVERIC RENAL ALLOGRAFT Referral ID Status Reason Start Date Expiration Date Visits Re quested Visits Authorized [id number] 1 1 Encounter Details Date Type Department Care Team (Latest Contact Info) Description 09/16/2015 9:46 AM EDT - 09/20/2015 3:40 PM EDT Hospital Encounter [address] [id number] Larry Larkin MD [facility] [place] [address] Renal transplant recipient (Primary Dx); ESRD (end [...] Bolden's stay because his kidney donor was [facility] high risk donor, and had known [...] Department Center 09/25/2015 9:00 AM TRANSPLANT, COORDINATOR [address] 09/25/2015 10:30 AM Larry Larkin MD [address] Outpatient Services/Studies: OPAT: Order / Recommendation [...] practitioner, clinical nurse specialist or physician's assistant unit forester who is working directly with them, had a face to face encounter that meets the physician face to face encounter requirements with this patient on 09/19/2015 The encounter with the patient was in whole, or in part, for the following medical condition, whichis the primary reason for home health care services: [ ESRD, on HD at [facility] HD Thu/Thu/Thursday since January 2015. OR [...] changes will need to be obtained from [facility] Transplant Clinic [phone] or from this patient's PCP: ALBANIA NUNEZ, [address] [place] [address] All VNA agencies which cover the area of patient's residence have been reviewed, either verbally greg writing, and patient/family have chosen the indicated home health care agency for home services. [facility]. PHONE: [phone] FAX: [phone] RN visits to begin on day after patient's discharge to home, if possible. RN visits 3-4times/week for post-operative assessment, checking for signs and symptoms of infection. Assess nutrition and hydration/abdomen/stooling pattern. Check weight and intake/output records. Reinforcement of teaching about LEEANNA drain care/emptying and recording amount of drainage. Cardio-pulmonary assessment. Medication review. Central line care per [facility] OPAT protocol. Reinforcement of teaching about IV antibiotic administration. Question Response Notes Agency name and contact information [facility] Patient location post discharge home What services are requested Registered Nurse Responsible MD post discharge contact info [facility] Dr. Larry Larkin and PCP Albania Nunez Referral for Outpatient Antibiotics Question Response Notes Vendor / contact information [facility] Patient location post discharge home Service requested Central line care per OPAT protocol and IV antibiotic Responsible MD post discharge contact info [facility] Dr. Larry Larkin and Dr. Brian Grande [...] may be used if needed and are zadj-yrp-jiduzkc (OTC) medications available at most local pharmacies. [...] Medicine sheet provided to you by the Tube Fitter to guide your daily doses. If you did notreceive some medications from the pharmacy at [facility] it is likely because they are over [...] with the Transplant Surgery Outpatient Clinic - [address] in 2-4 days. You will recieve a letter in the mail and/or a phone call with information about this appointment. Please call [phone] (clinic number for appointments) to confirm date [...] blood work. Your surgeon may not be Print Washer, especially during the night or on weekends, so be ready to describe yourself and your surgery when you call. General Instructions Office of Care Management/Turkey Boner(CM) Home IV Antibiotic Therapy Referral Note. Report received from Dr. Brian Grande that patient will require continued home IV antibiotic therapyafter discharge from the hospital. Met with patient/family to discuss vendor and visiting nurse choices for home IV antibiotic therapy. Reviewed Home Infusion Vendors and Home Health Agencies that serve patient???s address and accept patient???s insurance. Home Health Agency: Patient requested referral to [facility] PHONE: [phone] FAX: [phone] Referrals sent via edischarge. Home Infusion Vendor: Patient requested referral to [place], [place] or Referrals sent via edischarge. Diabetic Status: Patient is a diabetic. IV access: Type of line: Tunneled CVC Date placed: 09/19/15 CM signature Ruchi Tang RN Pager# [phone] [facility] Vascular/Interventional Radiology DISCHARGE INSTRUCTIONS FOR TUNNELED [...] is during regular working hours, please call [phone]. If it is after 5 pm or a weekend or holiday, call [phone] and ask for the Neurology Teacher cotton broker for Interventional Radiology. You have received medication [...] 09/19/2015 4:12 PM EDT Office of Care Management/Turkey Boner(CM) Home IV Antibiotic Therapy Referral Note. Report received from Dr. Brian Grande that patient will require continued home IV antibiotic therapyafter discharge from the hospital. Met with patient/family to discuss vendor and visiting nurse choices for home IV antibiotic therapy. Reviewed Home Infusion Vendors and Home Health Agencies that serve patient???s address and accept patient???s insurance. Home Health Agency: Patient requested referral to [facility] PHONE: [phone] FAX: [phone] Referrals sent via edischarge. Home Infusion Vendor: Patient requested referral to [place], [place] or Referrals sent via edischarge. Diabetic Status: Patient is a diabetic. IV access: Type of line: Tunneled CVC Date placed: 09/19/15 CM signature Ruchi Tang RN Pager# [phone] [facility] Vascular/Interventional Radiology DISCHARGE INSTRUCTIONS FOR TUNNELED [...] is during regular working hours, please call [phone]. If it is after 5 pm or a weekend or holiday, call [phone] and ask for the Neurology Teacher cotton broker for Interventional Radiology. You have received medication [...] may be used if needed and are mcix-kjx-aeysczk (OTC) medications available at most local pharmacies. [...] Medicine sheet provided to you by the Tube Fitter to guide your daily doses. If you did notreceive some medications from the pharmacy at [facility] it is likely because they are over [...] with the Transplant Surgery Outpatient Clinic - [address] in 2-4 days. You will recieve a letter in the mail and/or a phone call with information about this appointment. Please call [phone] (clinic number for appointments) to confirm date [...] blood work. Your surgeon may not be Print Washer, especially during the night or on weekends, [...] EXTREMITY performed by Que Amaro MD at [facility] OR? Pro transplantation of kidney?? N/A?? 09/16/2015? @KIDNEY TRANSPLANT, WITHOUT RECIPIENT NEPHRECTOMY performed by Larry Larkin MD at [facility] OR? Pro transplant, prep cadaver renal graft?? N/A?? 09/16/2015? @PREPARATION CADAVERIC RENAL ALLOGRAFT performed by Larry Larkin MD at [facility] MA[facility] OR? N/A?? 09/16/2015? ORGAN ACQUISITION RENAL, CADAVERIC performed by Larry Larkin MD at [facility] MA[facility] OR?? Social History: Patient lives with spouse in [place], [place].?? He reports he & not working [...] minutes Total timed interventions: 23 minutes Pager: [phone] Nicole Soares Physical Therapy Rehabilitation Department * [...] their responsibilities at home. Samia Escalante RN [facility] Solid Organ Transplant [phone] (Pager: [phone]) * Kyle Huizar, DRY PLASTERER HELPER - 09/20/2015 12:47 PM EDT Interventional Radiology [...] single lumen CVC was placed 09/19/15 for mcfp antibiotics. The CVC has not been used, according to nursing. Possible discharge home today. Plan: We will sign off, but would be happy to see patient again for any issues. KYLE HUIZAR APRN 09/20/2015 * Herlinda Bell, RD - 09/20/2015 12:02 PM EDT TRANSPLANT NUTRITION Post-Transplant Discharge Diet Instruction This sql report writer met with Ethel Bolden a 65 [...] requirements decrease to ~85gms per day. This sql report writer stressed importance of adequate hydration and [...] prior to his leaving. Samia Escalante RN [facility] Solid Organ Transplant [phone] (Pager: [phone]) * Therese Carpio RN - 09/19/2015 2:26 PM EDT 1410 To procedure room 2 via stretcher. Onto table in supine position. All monitors, O2, safety strap in place. Med's per protocol. * Herlinda Bell RD - 09/19/2015 11:11 AM EDT TRANSPLANT NUTRITION Post-Transplant Nutrition Visit This sql report writer met with Ethel Bolden a 65 [...] decrease to ~82gms per day. Summary/Plan: This sql report writer will initiate diet teaching tomorrow with patient and . Follow up with patient after discharge in outpatient solid organ transplant clinic. Remain available for questions/concerns. * Ruchi Tang RN - 09/19/2015 10:00 AM EDT Care Management/ Pager# [phone]/ Transfer note and Discharge planning S: Getting everything organized for me to be able to go home tomorrow sounds perfect. I was doing HD at [facility] on Thursday/Thursday/Thursday since January 2015. I won't be needing to go there anymore. Getting the referrals in to [facility] and [facility] is a good plan. Thanks for your help. O: Met with patient this morning. [facility] [facility] Patient is [facility]# 3 [...] OOB ambulating with minimal assistance. Message to Brand Communications Manager about [facility] HD (M/W/F) prior to admission. Message to Brand Communications Manager for referral to [facility] and to [facility]. Call to Anthony of [facility] to discuss referral for CVC care and IV antibiotic. Care Management note for MD Discharge Summary (with VNA and IV antibiotic Vendor information) completed and pended by sql report writer. Discussion with mechanical facilities technician Tamela Mckeon. A/P: Discharge planning underway for likely patient discharge on 09/19. At time of patient's discharge, staff counsel to call report to VNRay and MD Discharge Summary . * Ruchi Tang RN - 09/19/2015 9:47 AM EDT Office of Care Management/Turkey Boner(CM) Home IV Antibiotic Therapy Referral Note. Report received from Dr. Brian Grande that patient will require continued home IV antibiotic therapyafter discharge from the hospital. Met with patient/family to discuss vendor and visiting nurse choices for home IV antibiotic therapy. Reviewed Home Infusion Vendors and Home Health Agencies that serve patient???s address and accept patient???s insurance. Home Health Agency: Patient requested referral to [facility] PHONE: [phone] FAX: [phone] Referrals sent via edischarge. Home Infusion Vendor: Patient requested referral to [place], [place] or Referrals sent via edischarge. Diabetic Status: Patient is a diabetic. IV access: Type of line: Tunneled CVC Date placed: 09/19/15 CM signature Ruchi Tang RN Pager# [phone] * Que Amaro MD - 09/19/2015 9:03 [...] on 07/31/2015 for an AV fistulagram without DATA CAPTURE CLERK. He has had prior R IJ TDC [...] by Que Amaro MD at [facility] MA[facility] OR ??? Pro transplantation of kidney N/A 09/16/2015 @KIDNEY TRANSPLANT, WITHOUT RECIPIENT NEPHRECTOMY performed by Larry Larkin MD at [facility] MA[facility] OR ??? Pro transplant, prep cadaver renal graft N/A 09/16/2015 @PREPARATION CADAVERIC RENAL ALLOGRAFT performed by Larry Larkin MD at [facility] MA[facility] OR ??? N/A 09/16/2015 ORGAN ACQUISITION RENAL, CADAVERIC performed by Larry Larkin MD at [facility] MA[facility] OR No Known Allergies Scheduled [...] Amaro on 05.09.15. Patient last seen in [place] 07/31/2015 for an AV fistulagram without DATA CAPTURE CLERK. He has had prior R IJ TDC [...] : 1950 AGE 65 y.o. Address: [address] [place] [phone] (home) [phone] (work) Mobile: Telephone Information: Referring Provider: [place] [...] by Que Amaro MD at [facility] MA[facility] OR ??? Pro transplantation of kidney N/A 09/16/2015 @KIDNEY TRANSPLANT, WITHOUT RECIPIENT NEPHRECTOMY performed by Larry Larkin MD at [facility] MA[facility] OR ??? Pro transplant, prep cadaver renal graft N/A 09/16/2015 @PREPARATION CADAVERIC RENAL ALLOGRAFT performed by Larry Larkin MD at [facility] MA[facility] OR ??? N/A 09/16/2015 ORGAN ACQUISITION RENAL, CADAVERIC performed by Larry Larkin MD at [facility] OR Date/Procedure? Med's given/comments 01/08/2015: [...] tablet by mouth daily. 09/17/15 09/16/16 Que Amrao MD potassium phosphate, monobasic, (K-PHOS ORIGINAL) 500 [...] informed this patient that they require a commercial driver's license driver to be present and in the building to drive them home after this procedure. In the absence of a commercial driver's license driver, IR will not be able to [...] by Que Amaro MD at [facility] MA[facility] OR ??? Pro transplantation of kidney N/A 09/16/2015 @KIDNEY TRANSPLANT, WITHOUT RECIPIENT NEPHRECTOMY performed by Larry Larkin MD at [facility] MA[facility] OR ??? Pro transplant, prep cadaver renal graft N/A 09/16/2015 @PREPARATION CADAVERIC RENAL ALLOGRAFT performed by Larry Larkin MD at [facility] OR ??? N/A 09/16/2015 ORGAN ACQUISITION RENAL, CADAVERIC performed by Larry Larkin MD at [facility] OR Social History: Patient lives with spouse in [place], [place]. He reports he & not working [...] 20 minutes PARKER GILL, PT 09/18/2015 Pager: [phone] Physical Therapy Rehabilitation Department * Pauline Miles, RN - 09/18/2015 4:18 PM EDT 1615: Pt arrived to 422 via bed from [facility]. Skyla initiated. Call robles within reach. [facility] stable. [facility]. * Mundo Barry RN - 09/18/2015 1:35 PM EDT Nurse Turkey Boner Initial Assessment Mundo Barry RN, pager [phone] Office of Care Management 09/18/2015 Ethel Bolden [id number] Date of : 1950 Admission Diagnosis: Renal failure [N19]; per adm note: PMH significant for HCV with hemodialysis dependent ESRD 2/2 HTN who presents today for [facility] high risk donor kidney transplantation. Past [...] History Narrative None on file Lives in [place], [place] in own home w/ spouse Mundo and 26 y.o. Son. Code Status: Full. Advance Directives:none in [facility]. Admission Status: written and signed by attending as IPI. Insurance: Medicare A,B and D through [employer] and /. Pharmacy: [facility] [address] Baseline Functional Status: self reports no [...] with changing needs. Mundo Barry RN, MSN Turkey BonerPcmh Specialist of Care Management Pager [phone] Phone: [phone] * Brian Grande MD - [...] consult service will continue to follow. Page [phone] with questions or concerns. X Recommendations are above. ID will sign off. If clinical changes occur or new questions arise, page [phone]. Patient discussed with ID attending Dr. Harjinder BECK MD Fellow, Infectious Disease 09/18/2015 Pager [phone] Addendum Asked to comment on the possibility [...] the ceftriaxone. Selena Beck ID fellow Pager [phone] I agree with the recommendations of Dr. Beck after discussion with her and review of her note.I did not examine the patient myself today. Brian Grande MD * Tal Eagle MD - 09/18/2015 9:54 AM EDT TRANSPLANT NEPHROLOGY CONSULT PROGRESS NOTE REASON FOR CONSULTATION: medical management of transplant kidney referred by Dr. Larkin Ethel Bolden [id number] Transplant ID: Date: 09/18/2015 Patient: Ethel Bolden Transplant Date: 09/16/2015 Organ(s) donor Pala organ diagnosis: Renal biopsy showing diabetic and [...] kidney. Pt was getting HD MWF at [facility]. He was referred by Dr. Nunez for pre transplant evaluation for his kidney and was seen by Dr Eagle on 04/19/2015. He apparently had previouslybeen evaluated for transplant at the [facility]. He was told he will need a [...] Shagufta Villasenor MD Nephrology fellow Pager # [phone] I reviewed all of the above findings [...] Urine picked up throughout shift. Weaning from WAREHOUSE MANAGER. Report given to next shift. * Samia [...] his second Simulect infusion. Samia Escalante RN [facility] Solid Organ Transplant [phone] (Pager: [phone]) * Tal Eagle MD - 09/17/2015 10:15 [...] which accurately reflect mine. * Jesus Bradley, [facility] - 09/16/2015 5:40 PM EDT Clinical Pharmacist Note-Vanc Ethel Bolden [id number] 1950 Ethel Bolden is a 65 y.o. [...] have. Alternately, during off-hours you may call [phone] to contact a pharmacist. JESUS BRADLEY RPH Pager [phone] * Brenda Masterson RN - 09/16/2015 11:24 [...] prior to OR. MD Saravia at bedside, Tire Recapper, Ninoska GERBER will return for consent. Will continue to monitor. documented in this encounter H&P Notes * Marcus Saravia MD - 09/16/2015 9:57 AM EDT [facility] Department of Transplant Surgery H&P Note [...] by Que Amaro MD at [facility] MA[facility] OR ALL: No Known Allergies [...] when outof bed;room near unit station 09/19/15 2031 Musculoskeletal Interventions Activity/Level of Assistance up in [...] completed during shift at approx 1800 by [facility]. PLAN MOVING FORWARD: Patient +Flatus awaiting [...] small amount of serousanginous output. Inscision dry/intact [facility]. K this am is 5.2. Pt received prn oxycodone [id number]. Pt was OOB walked 100ft w/o any [...] kidney referred by Dr. Larkin Ethel Bolden [id number] Transplant ID: Date: 09/17/2015 Patient: Ethel Bolden Transplant Date: 09/16/2015 Organ(s) donor Pala organ diagnosis: Renal biopsy showing diabetic and [...] kidney. Pt was getting HD MWF at [facility]. He was referred by Dr. Nunez for pre transplant evaluation for his kidney and was seen by Dr Eagle on 04/19/2015. He apparently had previouslybeen evaluated for transplant at the [facility]. He was told he will need a [...] by Que Amaro MD at [facility] MA[facility] OR ??? Pro transplantation of kidney N/A 09/16/2015 @KIDNEY TRANSPLANT, WITHOUT RECIPIENT NEPHRECTOMY performed by Larry Larkin MD at [facility] MA[facility] OR ??? Pro transplant, prep cadaver renal graft N/A 09/16/2015 @PREPARATION CADAVERIC RENAL ALLOGRAFT performed by Larry Larkin MD at [facility] MA[facility] OR FH: Father had heart [...] Shagufta Villasenor MD Nephrology fellow Pager # [phone] I reviewed all of the above findings and assessment of Dr. Villasenor, examined the patient and formulated the recommendations which accurately reflect mine. 80 Min., >50%(40 min) in direct face to face counseling department chair. o Discussion with the patient and/or family [...] by Que Amaro MD at [facility] MA[facility] OR ??? Pro transplantation of kidney N/A 09/16/2015 @KIDNEY TRANSPLANT, WITHOUT RECIPIENT NEPHRECTOMY performed by Larry Larkin MD at [facility] MA[facility] OR ??? Pro transplant, prep cadaver renal graft N/A 09/16/2015 @PREPARATION CADAVERIC RENAL ALLOGRAFT performed by Larry Larkin MD at [facility] OR Social History and Habits: [...] continue to follow patient. Page us at [phone] with any further questions or concerns. Recommendations are above and were discussed with the primary treating team. ID will sign off. Please page if further consultation required. This patient was seen and discussed with ID attending Dr. Harjinder BECK MD Fellow, Infectious Disease 09/17/2015 Pager [phone] I interviewed, examined and discussed the patient with Dr. Beck, with whose findings and recommendations I concur. I also reviewed all pertinent labs and radiology. Would treat the GCS with ceftriaxone as per Dr. Beck, with duration in part driven by final results of final cultures from donor. Brian Grande MD * Op Note - Larry Larkin MD - 09/17/2015 11:03 AM EDT [facility] Operative Note Patient Name: Ethel Bolden : [id number] MR#: [id number] Case Date: 09/16/2015 Surgeon: Surgeon(s) and Role: * Larry Larkin MD - Primary * Marcus Saravia MD Preoperative diagnosis: Kidney transplant. UNOS #[id number] Postoperative diagnosis: Kidney transplant. UNOS #[id number] Procedure(s): @KIDNEY TRANSPLANT, WITHOUT RECIPIENT NEPHRECTOMY @PREPARATION [...] to adjacent structures, lymphocoele, urtereral leak, stroke, AL, and . The donor and recipient are [...] by Que Amaro MD at [facility] MA[facility] OR ??? Pro transplantation of kidney N/A 09/16/2015 @KIDNEY TRANSPLANT, WITHOUT RECIPIENT NEPHRECTOMY performed by Larry Larkin MD at [facility] MA[facility] OR ??? Pro transplant, prep cadaver renal graft N/A 09/16/2015 @PREPARATION CADAVERIC RENAL ALLOGRAFT performed by Larry Larkin MD at [facility] MA[facility] OR Social History: Patient lives with spouse in [place], [place]. He reports he & not working [...] Pt seen for evaluation today. Pain: using WAREHOUSE MANAGER but no c/o pain. Vital Signs: Sp02: [...] and wanting to sit to eat breakfast BI=866/64 and RN notified. Standing: he preferred to [...] 0 minutes ANDREI GILL PT 09/17/2015 Pager: [phone] Physical Therapy Rehabilitation Department * Plan of [...] with turning/repositioning Supervision: Hourly rounding, direct care, RN/LICENSED NUCLEAR CONTROL ROOM OPERATOR Surveillance: Telemetry and pulse oximetry CPG [...] Operative Note Patient Name: Ethel Bolden : [id number] MR#: [id number] Case Date: 09/16/2015 Surgeon: Surgeon(s) and Role: * Larry Larkin MD - Primary * Marcus Saravia MD Preoperative diagnosis: Kidney transplant. UNOS #[id number] Postoperative diagnosis: Kidney transplant. UNOS #[id number] Procedure(s): @KIDNEY TRANSPLANT, WITHOUT RECIPIENT NEPHRECTOMY @PREPARATION [...] EST TH Visit (TeleHealth) Cardiology at [address] [phone] Byron Brown MD [facility] [place] [address] 07/14/2024 10:00 AM EST Hospital Encounter Non-Invasive Cardiology Lab Replaced By [facility] [place] [address] Arrived Scheduled Referrals Name Type Priority Associated Diagnoses Order Schedule OPAT: Order / Recommendation for Post Discharge IV Antibiotic Management Outpatient Referral Routine Renal transplant recipient Ordered: 09/18/2015 documented as of this encounter Procedures Procedure Name Priority Date/Time Associated Diagnosis Comments PHYSICS INSTRUCTOR SCAN 09/21/2015 12:00 AM EDT POCT GLUCOSE [...] 09/16/2015 11:41 AM EDT Kidney transplant. UNOS #[id number] @PREPARATION CADAVERIC RENAL ALLOGRAFT (WRVU 9.24) 09/16/2015 11:41 AM EDT Kidney transplant. UNOS #[id number] @KIDNEY TRANSPLANT, WITHOUT RECIPIENT NEPHRECTOMY (WRVU 39.88) 09/16/2015 11:41 AM EDT Kidney transplant. UNOS #[id number] CMV ANTIBODY, IGG Routine 09/16/2015 10: 28 [...] in this encounter Results * SCAN DOC: PHYSICS INSTRUCTOR (09/21/2015 12:00 AM EDT) Anatomical Region Laterality Modality Other Scanning Provider MEDIA MGR SCAN EXT O RDR/RSLT * POCT Glucose (09/20/2015 11:23 AM EDT) Glucose, POC 144 65 - 199 mg/dL [facility] Comment: Supplemental ranges: <140 mg/dL before meals <180 mg/dL all other times of the day Blood specimen (specimen) 09/20/2015 11:23 AM EDT 09/20/2015 11:23 AM EDT Larry Larkin MD POINT OF CARE TEST O RDERABLES [facility] [place] [address] * Tacrolimus level (09/20/2015 8:04 AM EDT) Tacrolimus <3.0 ng/mL [facility] Comment:Trough therapeutic: 5-15 ng/mL Blood specimen (specimen) 09/20/2015 8:04 AM EDT 09/20/2015 10:58 AM EDT Narrative Resulting Agency Comment Spec In Lab Larry Larkin MD CHEMISTRY ORDERABLES Performing Organization Address City/[facility]/ZIP Co de Phone Number [facility] [place] [address] * POCT Glucose (09/20/2015 7:10 AM EDT) Pathologist [facility] [place] Glucose, POC 123 65 - 199 mg/dL [facility] Comment: Supplemental ranges: <140 mg/dL before meals <180 mg/dL all other times of the day Blood specimen (specimen) 09/20/2015 7:10 AM EDT 09/20/2015 7:10 AM EDT Larry Larkin MD POINT OF CARE TEST O RDERABLES Performing Organization Address [facility] Co de Phone Number [facility] [place] [address] * (ABNORMAL) Differential, Automated (09/20/2015 4:58 AM EDT) [facility] Neutrophil % 80.6 % [facility] Neutrophil Absolute 7.65(H) 1.50 - 6.30 x10(3)/mc L [facility] Lymph % 7.2 % [facility] Lymphocytes Abs 0.7(L) 1.0 - 3.6 x10(3)/mc L [facility] Monocyte % 11.9 % [facility] Monocyte Abs 1.1(H) 0.2 - 1.0 x10(3)/mc L [facility] Eos % 0.0 % [facility] Eosinophils Abs 0.0 0.0 - 0.5 x10(3)/mc L [facility] Basophil % 0.0 % [facility] Baso Absolute 0.0 [...] [facility] Blood specimen (specimen) 09/20/2015 4:58 AM EDT 09/20/2015 5:17 AM EDT Narrative Resulting Agency Comment Spec In Lab Larry Larkin MD HEMATOLOGY ORDERABLE S [facility] [place] [address] * (ABNORMAL) Hemogram (09/20/2015 4:58 AM EDT) White Blood Cell 9.5 4.0 - 10.0 x10(3)/mc L [facility] Red Blood Cell 2.95(L) 4.63 - 6.08 x10(6)/mc L [facility] Hemoglobin 9.4(L) 13.7 - 17.5 gm/dL [facility] Hematocrit 27.5(L) 40.0 - 51.0 % [facility] Mean Cell Volume 93.2(H) 79.0 - 92.0 fL [facility] Mean Cell Hemoglobin 31.9 25.6 - 32.2 pg [facility] Mean Cell Hemoglobin Concentration 34.2 32.0 - 36.5 gm/dL [facility] Platelet 234 145 - 370 x10(3)/mc L [facility] RDW Standard Deviation 50.1(H) 35.0 - 46.0 fL [facility] RDW coefficient of variation 14.6(H) 10.9 - 14.4 % [facility] Mean Platelet Volume 9.4 9.0 - 12.0 fL [facility] Blood specimen (specimen) 09/20/2015 4:58 AM EDT 09/20/2015 5:17 AM EDT Narrative Resulting Agency Comment Spec In Lab Larry Larkin MD HEMATOLOGY ORDERABLE S Performing Organization Address City/[facility] Co de Phone Number [facility] [place] [address] * (ABNORMAL) Hepatic Function Panel (09/20/2015 4:58 AM EDT) Protein, Total 6.0(L) 6.1 - 8.0 gm/dL [facility] Albumin 3.1(L) 3.2 - 5.2 gm/dL [facility] Aspartate Aminotransferase 19 0 - 39 unit/L [facility] Alanine Aminotransferase 17 0 - 55 unit/L [facility] Alkaline Phosphatase 43 40 - 120 unit/L [facility] Bilirubin, Total 0.5 0.2 - 1.3 mg/dL [facility] Bilirubin, Direct 0.1 0.0 - 0.3 mg/dL [facility] Blood specimen (specimen) 09/20/2015 4:58 AM EDT 09/20/2015 5:17 AM EDT Narrative Resulting Agency Comment Spec In Lab Larry Larkin MD CHEMISTRY ORDERABLES Performing Organization Address [facility] Co de Phone Number [facility] [place] [address] * Phosphorus (09/20/2015 4:58 AM EDT) Phosphorus 3.0 2.5 - 4.5 mg/dL [facility] Blood specimen (specimen) 09/20/2015 4:58 AM EDT 09/20/2015 5:17 AM EDT Narrative Resulting Agency Comment Spec In Lab Larry Larkin MD CHEMISTRY ORDERABLES Performing Organization Address City/[facility]/ZIP Co de Phone Number [facility] [place] [address] * Magnesium (09/20/2015 4:58 AM EDT) Magnesium 0.89 0.69 - 1.07 mmol/L [facility] Blood specimen (specimen) 09/20/2015 4:58 AM EDT 09/20/2015 5:17 AM EDT Narrative Resulting Agency Comment Spec In Lab Larry Larkin MD CHEMISTRY ORDERABLES [facility] [place] [address] * (ABNORMAL) Basic Metabolic Panel (non-fasting) (09/20/2015 4:58 AM EDT) Glucose 130 65 - 199 mg/dL [facility] Comment:Diabetes: >=200 mg/d L plus symptoms Blood Urea Nitrogen 60(H) 10 - 20 mg/dL [facility] Creatinine 2.30(H) 0.80 - 1.50 mg/dL [facility] Comment: result rechecked-monty Please note that the pediatric reference intervals supplied above were not validated at [facility]. Results from pediatric patients should be interpreted in conjunction to the patient's age, height and muscle mass. Sodium 144 135 - 145 mmol/L [facility] Potassium 5.1(H) 3.5 - 5.0 mmol/L [facility] Comment: Please note: ??Patients with WBC >100,000 may have falsely elevated Potassium levels. ??For accurate Potassium quantification in these patients send serum separator tube (gold top) for subsequent determinations. ??Contact the Clinical Chemistry Laboratory if there are any questions. Chloride 108(H) 98 - 107 mmol/L [facility] Carbon Dioxide 23 22 - 31 mmol/L [facility] Anion Gap 13 5 - 15 mmol/L [facility] Calcium 9.0 8.5 - 10.5 mg/dL [facility] Est Glomerular Filtration Rate 28(L) >=60 [facility] Comment: This [...] the following links into your internet browser. [email or web address] Blood specimen (specimen) 09/20/2015 4:58 AM EDT 09/20/2015 5:17 AM EDT Narrative Resulting Agency Comment Spec In Lab Larry Larkin MD CHEMISTRY ORDERABLES Performing Organization Address [facility] de Phone Number [facility] [place] [address] * POCT Glucose (09/19/2015 9:00 PM EDT) Glucose, POC 183 65 - 199 mg/dL [facility] Comment: Supplemental ranges: <140 mg/dL before meals <180 mg/dL all other times of the day Blood specimen (specimen) 09/19/2015 9:00 PM EDT 09/19/2015 9:00 PM EDT Larry Larkin MD POINT OF CARE TEST O RDERABLES Performing Organization Address [facility] Co de Phone Number [facility] [place] [address] * POCT Glucose (09/19/2015 4:19 PM EDT) Glucose, POC 151 65 - 199 mg/dL [facility] Comment: Supplemental ranges: <140 mg/dL before meals <180 mg/dL all other times of the day Blood specimen (specimen) 09/19/2015 4:19 PM EDT 09/19/2015 4:19 PM EDT Larry Larkin MD POINT OF CARE TEST O RDERABLES [facility] [place] [address] * IR central venous access (09/19/2015 3:38 [...] Glucose, POC 122 65 - 199 mg/dL [facility] Comment: Supplemental ranges: <140 mg/dL before meals <180 mg/dL all other times of the day Blood specimen (specimen) 09/19/2015 11:56 AM EDT 09/19/2015 11:56 AM EDT Larry Larkin MD POINT OF CARE TEST O RDERABG Performing Organization Address [facility]/ZIP Co de Phone Number [facility] [place] [address] * POCT Glucose (09/19/2015 7:06 AM EDT) Glucose, POC 169 65 - 199 mg/dL [facility] Comment: Supplemental ranges: <140 mg/dL before meals <180 mg/dL all other times of the day Blood specimen (specimen) 09/19/2015 7:06 AM EDT 09/19/2015 7:06 AM EDT Larry Larkin MD POINT OF CARE TEST O RDERABG Performing Organization Address City/[facility]/ZIP Co de Phone Number [facility] [place] [address] * (ABNORMAL) Differential, Automated (09/19/2015 6:14 AM EDT) Neutrophil % 87.3 % [facility] Neutrophil Absolute 10.11(H) 1.50 - 6.30 x10(3)/mc L [facility] Lymph % 3.0 % [facility] Lymphocytes Abs 0.4(L) 1.0 - 3.6 x10(3)/mc L [facility] Monocyte % 9.5 % [facility] Monocyte Abs 1.1(H) 0.2 - 1.0 x10(3)/[facility] Eos % 0.0 % [facility] Eosinophils Abs 0.0 0.0 - 0.5 x10(3)/[facility] Basophil % 0.0 % [facility] Baso Absolute 0.0 0.0 - 0.2 x10(3)/[facility] Immature Gran % 0.20 % [facility] Blood specimen (specimen) 09/19/2015 6:14 AM EDT 09/19/2015 6:23 AM EDT Narrative Resulting Agency Comment Spec In Lab Larry Larkin MD HEMATOLOGY ORDERABLE S [facility] [place] [address] * (ABNORMAL) Hemogram (09/19/2015 6:14 AM EDT) White Blood Cell 11.6(H) 4.0 - 10.0 x10(3)/[facility] Red Blood Cell 2.92(L) 4.63 - 6.08 x10(6)/[facility] Hemoglobin 9.1(L) 13.7 - 17.5 gm/dL [facility] Hematocrit 27.1(L) 40.0 - 51.0 % [facility] Mean Cell Volume 92.8(H) 79.0 - 92.0 fL [facility] Mean Cell Hemoglobin 31.2 25.6 - 32.2 pg [facility] Mean Cell Hemoglobin Concentration 33.6 32.0 - 36.5 gm/dL [facility] Platelet 206 145 - 370 x10(3)/mc L [facility] RDW Standard Deviation 48.3(H) 35.0 - 46.0 fL [facility] RDW coefficient of variation 14.2 10.9 - 14.4 % [facility] Mean Platelet Volume 9.3 9.0 - 12.0 fL [facility] Blood specimen (specimen) 09/19/2015 6:14 AM EDT 09/19/2015 6:23 AM EDT Narrative Resulting Agency Comment Spec In Lab Larry Larkin MD HEMATOLOGY ORDERABLE S Performing Organization Address [facility] Co de Phone Number [facility] [place] [address] * Cryoglobulin (09/19/2015 6:14 AM EDT) Cryoglobulin See Note [facility] Comment: Cryoglobulins negative at 24 and 72 hours. This test was developed and its performance characteristics determined by [facility]. It has not been cleared or approved [...] Larkin MD CHEMISTRY ORDERABLES Performing Organization Address [facility] Co de Phone Number [facility] [place] [address] * (ABNORMAL) Hepatic Function Panel (09/19/2015 6:14 AM EDT) Protein, Total 6.1 6.1 - 8.0 gm/dL [facility] Albumin 3.1(L) 3.2 - 5.2 gm/dL [facility] Aspartate Aminotransferase 20 0 - 39 unit/L [facility] Alanine Aminotransferase 13 0 - 55 unit/L [facility] Alkaline Phosphatase 43 40 - 120 unit/L [facility] Bilirubin, Total 0.4 0.2 - 1.3 mg/dL [facility] Bilirubin, Direct 0.1 0.0 - 0.3 mg/dL [facility] Blood specimen (specimen) 09/19/2015 6:14 AM EDT 09/19/2015 6:23 AM EDT Narrative Resulting Agency Comment Spec In Lab Larry Larkin MD CHEMISTRY ORDERABLES Performing Organization Address [facility] Co de Phone Number [facility] [place] [address] * Phosphorus (09/19/2015 6:14 AM EDT) Phosphorus 3.9 2.5 - 4.5 mg/dL [facility] Blood specimen (specimen) 09/19/2015 6:14 AM EDT 09/19/2015 6:23 AM EDT Narrative Resulting Agency Comment Spec In Lab Larry Larkin MD CHEMISTRY ORDERABLES Performing Organization Address [facility] Co de Phone Number [facility] [place] [address] * Magnesium (09/19/2015 6:14 AM EDT) Magnesium 0.85 0.69 - 1.07 mmol/L [facility] Blood specimen (specimen) 09/19/2015 6:14 AM EDT 09/19/2015 6:23 AM EDT Narrative Resulting Agency Comment Spec In Lab Larry Larkin MD CHEMISTRY ORDERABLES Performing Organization Address City/[facility]/ZIP Co de Phone Number [facility] [place] [address] * (ABNORMAL) Basic Metabolic Panel (non-fasting) (09/19/2015 6:14 AM EDT) Glucose 138 65 - 199 mg/dL [facility] Comment:Diabetes: >=200 mg/d L plus symptoms Blood Urea Nitrogen 64(H) 10 - 20 mg/dL [facility] Creatinine 3.25(H) 0.80 - 1.50 mg/dL [facility] Comment: result rechecked-[facility] Please note that the pediatric reference intervals supplied above were not validated at [facility]. Results from pediatric patients should be interpreted in conjunction to the patient's age, height and muscle mass. Sodium 142 135 - 145 mmol/L [facility] Potassium 4.6 3.5 - 5.0 mmol/L [facility] Comment: Please note: ??Patients with WBC >100,000 may have falsely elevated Potassium levels. ??For accurate Potassium quantification in these patients send serum separator tube (gold top) for subsequent determinations. ??Contact the Clinical Chemistry Laboratory if there are any questions. Chloride 108(H) 98 - 107 mmol/L [facility] Carbon Dioxide 21(L) 22 - 31 mmol/L [facility] Anion Gap 13 5 - 15 mmol/L [facility] Calcium 8.8 8.5 - 10.5 mg/dL [facility] Est Glomerular Filtration Rate 19(L) >=60 [facility] Comment: This [...] the following links into your internet browser. [email or web address] Blood specimen (specimen) 09/19/2015 6:14 AM EDT 09/19/2015 6:23 AM EDT Narrative Resulting Agency Comment Spec In Lab Larry Larkin MD CHEMISTRY ORDERABLES Performing Organization Address [facility] Co de Phone Number [facility] [place] [address] * (ABNORMAL) Complement, Total (09/19/2015 6:14 AM EDT) Complement, Total 22(L) 30 - 75 unit/mL [facility] Comment: Test Performed by: [facility] [place] [address] Supervisor [employer]: Rosetta Conway, Ph.D. Blood specimen (specimen) 09/19/2015 6:14 AM EDT 09/19/2015 9:09 AM EDT Narrative Resulting Agency Comment Spec In Lab Larry Larkin MD CHEMISTRY ORDERABLES Performing Organization Address [facility] Co de Phone Number [facility] [place] [address] * C4 Complement (09/19/2015 6:14 AM EDT) Complement C4 29 10 - 40 mg/dL [facility] Blood specimen (specimen) 09/19/2015 6:14 AM EDT 09/19/2015 6:23 AM EDT Narrative Resulting Agency Comment Spec In Lab Larry Larkin MD CHEMISTRY ORDERABLES Performing Organization Address [facility] Co de Phone Number [facility] [place] [address] * C3 Complement (09/19/2015 6:14 AM EDT) Complement C3 100 90 - 180 mg/dL [facility] Blood specimen (specimen) 09/19/2015 6:14 AM EDT 09/19/2015 6:23 AM EDT Narrative Resulting Agency Comment Spec In Lab Larry Larkin MD CHEMISTRY ORDERABLES Performing Organization Address [facility] Co de Phone Number [facility] [place] [address] * POCT Glucose (09/18/2015 8:45 PM EDT) Glucose, POC 186 65 - 199 mg/dL [facility] Comment: Supplemental ranges: <140 mg/dL before meals <180 mg/dL all other times of the day Blood specimen (specimen) 09/18/2015 8:45 PM EDT 09/18/2015 8:45 PM EDT Larry Larkin MD POINT OF CARE TEST O RDMILAGROS Performing Organization Address [facility] Co de Phone Number [facility] [place] [address] * POCT Glucose (09/18/2015 3:48 PM EDT) Glucose, POC 173 65 - 199 mg/dL [facility] Comment: Supplemental ranges: <140 mg/dL before meals <180 mg/dL all other times of the day Blood specimen (specimen) 09/18/2015 3:48 PM EDT 09/18/2015 3:48 PM EDT Larry Larkin MD POINT OF CARE TEST O TED Performing Organization Address [facility] Co de Phone Number [facility] [place] [address] * POCT Glucose (09/18/2015 12:10 PM EDT) Glucose, POC 186 65 - 199 mg/dL [facility] Comment: Supplemental ranges: <140 mg/dL before meals <180 mg/dL all other times of the day Blood specimen (specimen) 09/18/2015 12:10 PM EDT 09/18/2015 12:10 PM EDT Larry Larkin MD POINT OF CARE TEST O RDERABLES [facility] [place] [address] * POCT Glucose (09/18/2015 7:58 AM EDT) Glucose, POC 133 65 - 199 mg/dL [facility] Comment: Supplemental ranges: <140 mg/dL before meals <180 mg/dL all other times of the day Blood specimen (specimen) 09/18/2015 7:58 AM EDT 09/18/2015 7:58 AM EDT Larry Larkin MD POINT OF CARE TEST O RDERABLES Performing Organization Address [facility] Co de Phone Number [facility] [place] [address] * (ABNORMAL) Differential, Automated (09/18/2015 2:31 AM EDT) Pathologist [facility] Neutrophil % 92.1 % [facility] Neutrophil Absolute 13.35(H) 1.50 - 6.30 x10(3)/mc L [facility] Lymph % 4.5 % [facility] Lymphocytes Abs 0.6(L) 1.0 - 3.6 x10(3)/mc L [facility] Monocyte % 3.0 % [facility] Monocyte Abs 0.4 0.2 - 1.0 x10(3)/mc L [facility] Eos % 0.0 % [facility] Eosinophils Abs 0.0 0.0 - 0.5 x10(3)/mc L [facility] Basophil % 0.1 % [facility] Baso Absolute 0.0 [...] Absolute 0.04 0.00 - 0.05 x10(3)/mc L [facility] Blood specimen (specimen) 09/18/2015 2:31 AM EDT 09/18/2015 2:50 AM EDT Narrative Resulting Agency Comment Spec In Lab Larry Larkin MD HEMATOLOGY ORDERABLE S [facility] [place] [address] * (ABNORMAL) Hemogram (09/18/2015 2:31 AM EDT) White Blood Cell 14.5(H) 4.0 - 10.0 x10(3)/mc L [facility] Red Blood Cell 3.13(L) 4.63 - 6.08 x10(6)/ L [facility] Hemoglobin 9.7(L) 13.7 - 17.5 gm/dL [facility] Hematocrit 29.3(L) 40.0 - 51.0 % [facility] Mean Cell Volume 93.6(H) 79.0 - 92.0 fL [facility] Mean Cell Hemoglobin 31.0 25.6 - 32.2 pg [facility] Mean Cell Hemoglobin Concentration 33.1 32.0 - 36.5 gm/dL [facility] Platelet 233 145 - 370 x10(3)/mc L [facility] RDW Standard Deviation 48.8(H) 35.0 - 46.0 fL [facility] RDW coefficient of variation 14.3 10.9 - 14.4 % [facility] Mean Platelet Volume 9.3 9.0 - 12.0 fL [facility] Blood specimen (specimen) 09/18/2015 2:31 AM EDT 09/18/2015 2:50 AM EDT Narrative Resulting Agency Comment Spec In Lab Larry Larkin MD HEMATOLOGY ORDERABLE S Performing Organization Address [facility] Co de Phone Number [facility] [place] [address] * (ABNORMAL) Hepatic Function Panel (09/18/2015 2:31 AM EDT) [facility] Protein, Total 6.1 6.1 - 8.0 gm/dL [facility] Albumin 3.1(L) 3.2 - 5.2 gm/dL [facility] Aspartate Aminotransferase 21 0 - 39 unit/L [facility] Alanine Aminotransferase 14 0 - 55 unit/L [facility] Alkaline Phosphatase 49 40 - 120 unit/L [facility] Bilirubin, Total 0.4 0.2 - 1.3 mg/dL [facility] Bilirubin, Direct 0.1 0.0 - 0.3 mg/dL [facility] Blood specimen (specimen) 09/18/2015 2:31 AM EDT 09/18/2015 2:50 AM EDT Narrative Resulting Agency Comment Spec In Lab Larry Larkin MD CHEMISTRY ORDERABLES Performing Organization Address [facility] Co de Phone Number [facility] [place] [address] * (ABNORMAL) Phosphorus (09/18/2015 2:31 AM EDT) [facility] Phosphorus 5.5(H) 2.5 - 4.5 mg/dL [facility] Blood specimen (specimen) 09/18/2015 2:31 AM EDT 09/18/2015 2:50 AM EDT Narrative Resulting Agency Comment Spec In Lab Larry Larkin MD CHEMISTRY ORDERABLES Performing Organization Address City/[facility] Co de Phone Number [facility] [place] [address] * Magnesium (09/18/2015 2:31 AM EDT) Magnesium 0.77 0.69 - 1.07 mmol/L [facility] Blood specimen (specimen) 09/18/2015 2:31 AM EDT 09/18/2015 2:50 AM EDT Narrative Resulting Agency Comment Spec In Lab Larry Larkin MD CHEMISTRY ORDERABLES [facility] [place] [address] * (ABNORMAL) Basic Metabolic Panel (non-fasting) (09/18/2015 2:31 AM EDT) Glucose 168 65 - 199 mg/dL [facility] Comment:Diabetes: >=200 mg/d L plus symptoms Blood Urea Nitrogen 69(H) 10 - 20 mg/dL [facility] Creatinine 6.26(H) 0.80 - 1.50 mg/dL [facility] Comment: Please note that the pediatric reference intervals supplied above were not validated at [facility]. Results from pediatric patients should be interpreted in conjunction to the patient's age, height and muscle mass. Sodium 137 135 - 145 mmol/L [facility] Potassium 5.2(H) 3.5 - 5.0 mmol/L [facility] Est Glomerular Filtration Rate 9(L) >=60 [facility] Comment: This [...] the following links into your internet browser. [email or web address] Blood specimen (specimen) 09/18/2015 2:31 AM EDT 09/18/2015 2:50 AM EDT Narrative Resulting Agency Comment Spec In Lab Larry Larkin MD CHEMISTRY ORDERABLES [facility] [place] [address] * (ABNORMAL) Basic Metabolic Panel (non-fasting) (09/17/2015 9:55 PM EDT) Glucose 190 65 - 199 mg/dL [facility] Comment:Diabetes: >=200 mg/d L plus symptoms Blood Urea Nitrogen 67(H) 10 - 20 mg/dL [facility] Creatinine 6.73(H) 0.80 - 1.50 mg/dL [facility] Comment: Please note that the pediatric reference intervals supplied above were not validated at [facility]. Results from pediatric patients should be interpreted in conjunction to the patient's age, height and muscle mass. Sodium 137 135 - 145 mmol/L [facility] Potassium 5.0 3.5 - 5.0 mmol/L [facility] Carbon Dioxide 19(L) 22 - 31 mmol/L [facility] [place] [...] the following links into your internet browser. [email or web address] Blood specimen (specimen) 09/17/2015 9:55 PM EDT 09/17/2015 9:59 PM EDT Narrative Resulting Agency Comment Spec In Lab Larry Larkin MD CHEMISTRY ORDERABLES Performing Organization Address City/State/[facility] Co de Phone Number [facility] [place] [address] * Renal Transplant Left (09/17/2015 12:37 PM EDT) Anatomical Region Laterality Modality Abdomen Left Ultrasound 09/17/2015 1:09 PM EDT Narrative 09/17/2015 1:39 PM EDT Transplant ? (Signed Final 09/17/2015 01:38 pm) Patient Info ID #: ? [id number] ? : [birth year] (65 yrs) Name: ? ETHEL BOLDEN ? Visit Date:09/17/2015 01:09 pm Performed By Performed By: ? Jessee Espinal RDMS Attending: ?Jewel GERBER, Preeti Sanford Associate: ?Alan GERBER, Victor Manuel Sanford Referred By: ?LARRY LARKIN MD Service(s) Provided ??URTPL - Ultrasound Renal Transplant - Left - [id number] Indications ??POD#1 s/p renal transplant on Left; [...] Final 09/17/2015 01:38pm) Patient Info ID #: [id number] : [birth year] (65 yrs) Name: ETHEL Gomez KENIAMARIALUISARAMÓN Visit Date:09/17/2015 01:09 pm Performed By Performed By: Jessee Espinal RDMS Attending: Preeti Holloway MD Associate: Alan GERBER, Victor Manuel Sanford Referred By: LARRY LARKIN MD Service(s) Provided URTPL - Ultrasound Renal Transplant - Left - [id number] Indications POD#1 s/p renal transplant on Left; [...] Absolute 14.45(H) 1.50 - 6.30 x10(3)/mc L [facility] Lymph % 3.1 % [facility] Lymphocytes Abs 0.5(L) 1.0 - 3.6 x10(3)/ L [facility] Monocyte % 8.3 % [facility] Monocyte Abs 1.4(H) 0.2 - 1.0 x10(3)/ L [facility] Eos % 0.0 % [facility] Eosinophils Abs 0.0 0.0 - 0.5 x10(3)/ L [facility] Basophil % 0.1 % [facility] Baso Absolute 0.0 0.0 - 0.2 x10(3)/ L [facility] Immature Gran % 0.20 % WHITE [...] Absolute 0.03 0.00 - 0.05 x10(3)/ L [facility] Blood specimen (specimen) 09/17/2015 11:31 AM EDT 09/17/2015 11:38 AM EDT Narrative Resulting Agency Comment Spec In Lab Larry Larkin MD HEMATOLOGY ORDERABLE S [facility] [place] [address] * (ABNORMAL) Hemogram (09/17/2015 11:31 AM EDT) Pathologist [facility] [place] White Blood Cell 16.4(H) 4.0 - 10.0 x10(3)/ L [facility] Red Blood Cell 3.60(L) 4.63 - 6.08 x10(6)/ L [facility] Hemoglobin 11.1(L) 13.7 - 17.5 gm/dL [facility] Hematocrit 33.9(L) 40.0 - 51.0 % [facility] Mean Cell Volume 94.2(H) 79.0 - 92.0 fL [facility] Mean Cell Hemoglobin 30.8 25.6 - 32.2 pg [facility] Mean Cell Hemoglobin Concentration 32.7 32.0 - 36.5 gm/dL [facility] Platelet 276 145 - 370 x10(3)/[facility] RDW Standard Deviation 49.3(H) 35.0 - 46.0 fL [facility] RDW coefficient of variation 14.3 10.9 - 14.4 % [facility] Mean Platelet Volume 9.4 9.0 - 12.0 fL [facility] Blood specimen (specimen) 09/17/2015 11:31 AM EDT 09/17/2015 11:38 AM EDT Narrative Resulting Agency Comment Spec In Lab Larry Larkin MD HEMATOLOGY ORDERABLE S [facility] [place] [address] * HIV Quant (09/17/2015 11:31 AM EDT) Pathologist [facility] [place] HIV Viral Load Result (Qualitative) * RESULT: [...] Administration. Gibson Good, Ph.D. Director, Molecular Pathology [facility] Comment: [VERIFIED DATE]09.21.15 Verified By:Xiomy Gupta (Electronic Signature) Blood specimen (specimen) 09/17/2015 11:31 AM EDT 09/20/2015 2:24 PM EDT Narrative Resulting Agency Comment Spec In Lab Que Amaro MD HEMATOLOGY ORD MILAGROS Performing Organization Address [facility] Co de Phone Number [facility] [place] [address] * HBV Quant (09/17/2015 11:31 AM EDT) Pathologist [facility] [place] Hepatitis B DNA, quantitative, PCR Result: <20 [...] performed in the [facility] Molecular Pathology Laboratory. Gibson Good, Ph.D. Director, Molecular Pathology [facility] Blood specimen (specimen) 09/17/2015 11:31 AM EDT 09/21/2015 9:44 AM EDT Narrative Resulting Agency Comment Spec In Lab Que Amaro MD CHEMISTRY ORDBhargav JENNINGS Performing Organization Address [facility] Co de Phone Number [facility] [place] [address] * (ABNORMAL) Potassium (09/17/2015 11:31 AM EDT) Potassium 5.6(H) 3.5 - 5.0 mmol/L [facility] Larkin MD CHEMISTRY ORDERABLES Performing Organization Address [facility]/ZIP Co de Phone Number [facility] [place] [address] * Blood culture (09/17/2015 10:36 AM EDT) Blood Culture No growth at 5 days. [facility] Blood specimen (specimen) ARTERIAL LINE / Unknown 09/17/2015 10:36 AM EDT 09/17/2015 10:46 AM EDT Narrative Resulting Agency Comment Spec In Lab Larry Larkin MD MICROBIOLOGY - BLOOD ORDERABLES Performing Organization Address City/[facility]/ZIP Co de Phone Number [facility] [place] [address] * Hep C Viral RNA NS3 Genotype (09/17/2015 10:17 AM EDT) HCV RNA NS3 Genotype See Note [facility] Comment: Please see scanned report in Chart Review under the Non-DH Laboratory Heading. Test performed by [employer], [id number] [place] [address] Blood specimen (specimen) 09/17/2015 10:17 AM EDT 09/17/2015 11:42 AM EDT Narrative Resulting Agency Comment Spec In Lab Larry Larkin MD CHEMISTRY ORDERABLES Performing Organization Address City/[facility]/ZIP Co de Phone Number [facility] [place] [address] * Hepatitis C RNA, quantitative, PCR (09/17/2015 10:17 AM EDT) HCV Viral Load 323,972 IU/mL [facility] HCV Viral Load Result: [id number] IU/mL Indication for Study: Hepatitis C Infection Analysis: A quantitiative real time reverse transcriptase PCR assay was performed on extracted viral RNA for the purpose of quantification. Sample: plasma (1 mL minimum volume) Method: Kirsten Nik TaqMAN 48 HCV Linear Range: 15 IU/mL - 100,000,000IU/mL (95% CI) Note: This assay is being performed in the [facility] Molecular Pathology Laboratory. Gibson Good, Ph.D. Director, Molecular Pathology [facility] Comment: [VERIFIED DATE]09.21.15 Verified By:Xiomy Gupta (Electronic Signature) Blood specimen (specimen) 09/17/2015 10:17 AM EDT 09/20/2015 2:34 PM EDT Narrative Resulting Agency Comment Spec In Lab Larry Larkin MD MOLECULAR ORDERABLES Performing Organization Address [facility] Co de Phone Number [facility] [place] [address] * Blood culture (09/17/2015 10:17 AM EDT) [...] [facility]/ZIP Co de Phone Number [facility] [place] [address] * (ABNORMAL) Phosphorus (09/17/2015 9:17 AM EDT) [facility] Phosphorus 6.9(H) 2.5 - 4.5 mg/dL [facility] Blood specimen (specimen) Venous Draw / Unknown 09/17/2015 9:17 AM EDT 09/17/2015 9:41 AM EDT Narrative Resulting Agency Comment Spec In Lab Larry Larkin MD CHEMISTRY ORDERABLES [facility] [place] [address] * Magnesium (09/17/2015 9:17 AM EDT) [facility] Magnesium 0.75 0.69 - 1.07 mmol/L [facility] Blood specimen (specimen) Venous Draw / Unknown 09/17/2015 9:17 AM EDT 09/17/2015 9:41 AM EDT Narrative Resulting Agency Comment Spec In Lab Larry Larkin MD CHEMISTRY ORDERABLES Performing Organization Address City/[facility]/ZIP Co de Phone Number [facility] [place] [address] * (ABNORMAL) Differential, Automated (09/17/2015 9:17 AM EDT) [facility] Neutrophil % 90.3 % [facility] Neutrophil Absolute 13.67(H) 1.50 - 6.30 x10(3)/mc L [facility] Lymph % 3.7 % [facility] Lymphocytes Abs 0.6(L) 1.0 - 3.6 x10(3)/mc L [facility] Monocyte % 5.6 % [facility] Monocyte Abs 0.8 0.2 - 1.0 x10(3)/mc L [facility] Eos % 0.0 % [facility] Eosinophils Abs 0.0 0.0 - 0.5 x10(3)/mc L [facility] Basophil % 0.1 % [facility] Baso Absolute 0.0 0.0 - 0.2 x10(3)/[facility] Immature Gran % 0.30 % [facility] Comment: Immature granulocytes(IG's)percentage and absolute count will include metamyelocytes, myelocytes, and promyelocytes. Blood smears from CBCs yielding IG's will be scanned manually for concordance. If this scan disagrees with the automated IG or if promyelocytes are noted, a manual differential will be performed. Immature Gran Absolute 0.04 0.00 - 0.05 x10(3)/[facility] Blood specimen (specimen) 09/17/2015 9:17 AM EDT 09/17/2015 9:41 AM EDT Narrative Resulting Agency Comment Spec In Lab Larry Larkin MD HEMATOLOGY ORDERABLE S Performing Organization Address City/State/[facility] Co de Phone Number [facility] [place] [address] * (ABNORMAL) Hemogram (09/17/2015 9:17 AM EDT) White Blood Cell 15.1(H) 4.0 - 10.0 x10(3)/[facility] Red Blood Cell 3.58(L) 4.63 - 6.08 x10(6)/[facility] Hemoglobin 11.3(L) 13.7 - 17.5 gm/dL [facility] Hematocrit 33.3(L) 40.0 - 51.0 % [facility] Mean Cell Volume 93.0(H) 79.0 - 92.0 fL [facility] Mean Cell Hemoglobin 31.6 25.6 - 32.2 pg [facility] Mean Cell Hemoglobin Concentration 33.9 32.0 - 36.5 gm/dL [facility] Platelet 271 145 - 370 x10(3)/[facility] RDW Standard Deviation 49.5(H) 35.0 - 46.0 fL [facility] RDW coefficient of variation 14.5(H) 10.9 - 14.4 % [facility] Mean Platelet Volume 9.5 9.0 - 12.0 fL [facility] Blood specimen (specimen) 09/17/2015 9:17 AM EDT 09/17/2015 9:41 AM EDT Narrative Resulting Agency Comment Spec In Lab Larry Larkin MD HEMATOLOGY ORDERABLE S [facility] [place] [address] * (ABNORMAL) Comprehensive metabolic panel (non-fasting) (09/17/2015 9:17 AM EDT) Glucose 157 65 - 199 mg/dL [facility] Comment:Diabetes: >=200 mg/d L plus symptoms Blood Urea Nitrogen 59(H) 10 - 20 mg/dL [facility] Creatinine 6.96(H) 0.80 - 1.50 mg/dL [facility] Comment: Please note that the pediatric reference intervals supplied above were not validated at [facility]. Results from pediatric patients should be interpreted in conjunction to the patient's age, height and muscle mass. Sodium 137 135 - 145 mmol/L [facility] Potassium Not Perf 3.5 - 5.0 mmol/L [facility] Comment: Unable to quantitate [...] [facility] Carbon Dioxide 16(L) 22 - 31 mmol/L [facility] Anion Gap 21(H) 5 - 15 mmol/L [facility] Calcium 8.6 8.5 - 10.5 mg/dL [facility] Protein, Total 6.7 6.1 - 8.0 gm/dL [facility] Albumin 3.5 3.2 - 5.2 gm/dL [facility] Aspartate Aminotransferase Not Perf 0 - 39 unit/L [facility] Comment: Unable to quantitate due to sample hemolysis. ??Sample redraw suggested. Called by:nasra _, Read back by: rafy hooker, Date/Time:09/17/15 10:48. Alanine Aminotransferase 18 0 - 55 unit/L [facility] Alkaline Phosphatase 57 40 - 120 unit/L [facility] Bilirubin, Total 0.7 0.2 - 1.3 mg/dL [facility] Bilirubin, Direct Not Perf 0.0 - 0.3 mg/dL [facility] Comment: Unable to quantitate due to sample hemolysis. ??Sample redraw suggested. Called by:nasra _, Read back by: rafy hooker, Date/Time:09/17/15 10:48. Est Glomerular Filtration Rate 8(L) >=60 [facility] [...] the following links into your internet browser. [email or web address] Blood specimen (specimen) 09/17/2015 9:17 AM EDT 09/17/2015 9:41 AM EDT Narrative Resulting Agency Comment Spec In Lab Larry Larkin MD CHEMISTRY ORDERABLES [facility] [place] [address] * Vancomycin, trough (09/17/2015 9:17 AM EDT) Vancomycin, Trough 24.6 mg/L [facility] Comment: Therapeutic range for complicated [...] Larkin MD CHEMISTRY ORDERABLES Performing Organization Address [facility]/ZIP Co de Phone Number [facility] [place] [address] * POCT Glucose (09/17/2015 8:58 AM EDT) [facility] Glucose, POC 143 65 - 199 mg/dL [facility] Comment: Supplemental ranges: <140 mg/dL before meals <180 mg/dL all other times of the day Blood specimen (specimen) 09/17/2015 8:58 AM EDT 09/17/2015 8:58 AM EDT Larry Larkin MD POINT OF CARE TEST O RDERABLES [facility] [place] [address] * (ABNORMAL) Differential, Automated (09/17/2015 3:30 AM EDT) Neutrophil % 92.5 % [facility] Neutrophil Absolute 12.16(H) 1.50 - 6.30 x10(3)/mc L [facility] Lymph % 3.6 % [facility] Lymphocytes Abs 0.5(L) 1.0 - 3.6 x10(3)/[facility] Monocyte % 3.5 % [facility] Monocyte Abs 0.5 0.2 - 1.0 x10(3)/[facility] Eos % 0.1 % [facility] Eosinophils Abs 0.0 0.0 - 0.5 x10(3)/[facility] Basophil % 0.1 % [facility] Baso Absolute 0.0 0.0 - 0.2 x10(3)/[facility] Immature Gran % 0.20 % [facility] Blood specimen (specimen) 09/17/2015 3:30 AM EDT 09/17/2015 3:36 AM EDT Narrative Resulting Agency Comment Spec In Lab Larry Larkin MD HEMATOLOGY ORDERABLE S [facility] [place] [address] * (ABNORMAL) Hemogram (09/17/2015 3:30 AM EDT) White Blood Cell 13.1(H) 4.0 - 10.0 x10(3)/[facility] Red Blood Cell 3.56(L) 4.63 - 6.08 x10(6)/[facility] Hemoglobin 11.2(L) 13.7 - 17.5 gm/dL [facility] Hematocrit 32.8(L) 40.0 - 51.0 % [facility] Mean Cell Volume 92.1(H) 79.0 - 92.0 fL [facility] Mean Cell Hemoglobin 31.5 25.6 - 32.2 pg [facility] Mean Cell Hemoglobin Concentration 34.1 32.0 - 36.5 gm/dL [facility] Platelet 223 145 - 370 x10(3)/mc L [facility] RDW Standard Deviation 48.0(H) 35.0 - 46.0 fL [facility] RDW coefficient of variation 14.3 10.9 - 14.4 % [facility] Mean Platelet Volume 9.4 9.0 - 12.0 fL [facility] Blood specimen (specimen) 09/17/2015 3:30 AM EDT 09/17/2015 3:36 AM EDT Narrative Resulting Agency Comment Spec In Lab Larry Larkin MD HEMATOLOGY ORDERABLE S Performing Organization Address City/[facility]/ZIP Co de Phone Number [facility] [place] [address] * (ABNORMAL) Phosphorus (09/17/2015 3:30 AM EDT) Phosphorus 6.7(H) 2.5 - 4.5 mg/dL [facility] Blood specimen (specimen) 09/17/2015 3:30 AM EDT 09/17/2015 3:36 AM EDT Narrative Resulting Agency Comment Spec In Lab Larry Larkin MD CHEMISTRY ORDERABLES Performing Organization Address City/[facility]/ZIP Co de Phone Number [facility] [place] [address] * Magnesium (09/17/2015 3:30 AM EDT) Magnesium 0.73 0.69 - 1.07 mmol/L [facility] Blood specimen (specimen) 09/17/2015 3:30 AM EDT 09/17/2015 3:36 AM EDT Narrative Resulting Agency Comment Spec In Lab Larry Larkin MD CHEMISTRY ORDERABLES [facility] [place] [address] * (ABNORMAL) Comprehensive metabolic panel (non-fasting) (09/17/2015 3:30 AM EDT) Glucose 160 65 - 199 mg/dL [facility] Comment:Diabetes: >=200 mg/d L plus symptoms Blood Urea Nitrogen 52(H) 10 - 20 mg/dL [facility] Creatinine 6.94(H) 0.80 - 1.50 mg/dL [facility] Comment: Please note that the pediatric reference intervals supplied above were not validated at [facility]. Results from pediatric patients should be interpreted in conjunction to the patient's age, height and muscle mass. Sodium 137 135 - 145 mmol/L [facility] Potassium 5.7(H) 3.5 - 5.0 mmol/L [facility] Protein, Total 6.4 6.1 - 8.0 gm/dL [facility] Albumin 3.3 3.2 - 5.2 gm/dL [facility] Aspartate Aminotransferase 20 0 - 39 unit/L [facility] Alanine Aminotransferase 16 0 - 55 unit/L [facility] Alkaline Phosphatase 55 40 - 120 unit/L [facility] Bilirubin, Total 0.6 0.2 - 1.3 mg/dL [facility] Bilirubin, Direct 0.2 0.0 - 0.3 mg/dL [facility] Est Glomerular Filtration Rate 8(L) >=60 [facility] [...] the following links into your internet browser. [email or web address] Blood specimen (specimen) 09/17/2015 3:30 AM EDT 09/17/2015 3:36 AM EDT Narrative Resulting Agency Comment Spec In Lab Larry Larkin MD CHEMISTRY ORDERABLES [facility] [place] [address] * (ABNORMAL) Differential, Automated (09/16/2015 9:50 PM EDT) Neutrophil % 92.3 % [facility] Neutrophil Absolute 12.45(H) 1.50 - 6.30 x10(3)/mc L [facility] Lymph % 3.6 % [facility] Lymphocytes Abs 0.5(L) 1.0 - 3.6 x10(3)/mc L [facility] Monocyte % 3.6 % [facility] Monocyte Abs 0.5 0.2 - 1.0 x10(3)/mc L [facility] Eos % 0.1 % [facility] Eosinophils Abs 0.0 0.0 - 0.5 x10(3)/mc L [facility] Basophil % 0.1 % [facility] Baso Absolute 0.0 [...] Absolute 0.04 0.00 - 0.05 x10(3)/ L [facility] Blood specimen (specimen) 09/16/2015 9:50 PM EDT 09/16/2015 10:05 PM EDT Narrative Resulting Agency Comment Spec In Lab Larry Larkin MD HEMATOLOGY ORDERABLE S [facility] [place] [address] * (ABNORMAL) Hemogram (09/16/2015 9:50 PM EDT) White Blood Cell 13.5(H) 4.0 - 10.0 x10(3)/ L [facility] Red Blood Cell 3.70(L) 4.63 - 6.08 x10(6)/mc L [facility] Hemoglobin 11.7(L) 13.7 - 17.5 gm/dL [facility] Hematocrit 33.9(L) 40.0 - 51.0 % [facility] Mean Cell Volume 91.6 79.0 - 92.0 fL [facility] Mean Cell Hemoglobin 31.6 25.6 - 32.2 pg [facility] Mean Cell Hemoglobin Concentration 34.5 32.0 - 36.5 gm/dL [facility] Platelet 227 145 - 370 x10(3)/mc L [facility] RDW Standard Deviation 47.7(H) 35.0 - 46.0 fL [facility] [...] MD HEMATOLOGY ORDERABLE S Performing Organization Address City/[facility]/ZIP Co de Phone Number [facility] [place] [address] * (ABNORMAL) Phosphorus (09/16/2015 9:50 PM EDT) Phosphorus 6.2(H) 2.5 - 4.5 mg/dL [facility] Blood specimen (specimen) 09/16/2015 9:50 PM EDT 09/16/2015 10:05 PM EDT Narrative Resulting Agency Comment Spec In Lab Larry Larkin MD CHEMISTRY ORDERABLES Performing Organization Address City/[facility]/ZIP Co de Phone Number [facility] [place] [address] * Magnesium (09/16/2015 9:50 PM EDT) Magnesium 0.75 0.69 - 1.07 mmol/L [facility] Blood specimen (specimen) 09/16/2015 9:50 PM EDT 09/16/2015 10:05 PM EDT Narrative Resulting Agency Comment Spec In Lab Larry Larkin MD CHEMISTRY ORDERABLES Performing Organization Address City/[facility]/ZIP Co de Phone Number [facility] [place] [address] * (ABNORMAL) Comprehensive metabolic panel (non-fasting) (09/16/2015 9:50 PM EDT) Glucose 158 65 - 199 mg/dL [facility] Comment:Diabetes: >=200 mg/d L plus symptoms Blood Urea Nitrogen 48(H) 10 - 20 mg/dL [facility] Creatinine 6.94(H) 0.80 - 1.50 mg/dL [facility] Comment: Please note that the pediatric reference intervals supplied above were not validated at [facility]. Results from pediatric patients should be interpreted in conjunction to the patient's age, height and muscle mass. Sodium 138 135 - 145 mmol/L [facility] Potassium 5.3(H) 3.5 - 5.0 mmol/L [facility] Protein, Total 6.6 6.1 - 8.0 gm/dL [facility] Albumin 3.4 3.2 - 5.2 gm/dL [facility] Aspartate Aminotransferase 19 0 - 39 unit/L [facility] Alanine Aminotransferase 17 0 - 55 unit/L [facility] Alkaline Phosphatase 59 40 - 120 unit/L [facility] Bilirubin, Total 0.7 0.2 - 1.3 mg/dL [facility] Bilirubin, Direct 0.2 0.0 - 0.3 mg/dL [facility] Est Glomerular Filtration Rate 8(L) >=60 [facility] [...] the following links into your internet browser. [email or web address] Blood specimen (specimen) 09/16/2015 9:50 PM EDT 09/16/2015 10:05 PM EDT Narrative Resulting Agency Comment Spec In Lab Larry Larkin MD CHEMISTRY ORDERABLES Performing Organization Address [facility] Co de Phone Number [facility] [place] [address] * POCT Glucose (09/16/2015 5:36 PM EDT) [facility] Glucose, POC 135 65 - 199 mg/dL [facility] Comment: Supplemental ranges: <140 mg/dL before meals <180 mg/dL all other times of the day Blood specimen (specimen) 09/16/2015 5:36 PM EDT 09/16/2015 5:36 PM EDT Larry Larkin MD POINT OF CARE TEST O RDERABLES Performing Organization Address [facility] Co de Phone Number [facility] [place] [address] * (ABNORMAL) Differential, Automated (09/16/2015 3:29 PM EDT) [facility] Neutrophil % 88.2 % [facility] Neutrophil Absolute 6.47(H) 1.50 - 6.30 x10(3)/mc L [facility] Lymph % 8.3 % [facility] Lymphocytes Abs 0.6(L) 1.0 - 3.6 x10(3)/mc L [facility] Monocyte % 1.5 % [facility] Monocyte Abs 0.1(L) 0.2 - 1.0 x10(3)/mc L [facility] Eos % 1.6 % [facility] Eosinophils Abs 0.1 0.0 - 0.5 x10(3)/mc L [facility] Basophil % 0.3 % [facility] Baso Absolute 0.0 0.0 - 0.2 x10(3)/ L [facility] Lab Larry Larkin MD HEMATOLOGY ORDERABLE S [facility] [place] [address] * (ABNORMAL) Hemogram (09/16/2015 3:29 PM EDT) White Blood Cell 7.3 4.0 - 10.0 x10(3)/ L [facility] Red Blood Cell 3.65(L) 4.63 - 6.08 x10(6)/ L [facility] Hemoglobin 11.5(L) 13.7 - 17.5 gm/dL [facility] Hematocrit 33.3(L) 40.0 - 51.0 % [facility] Mean Cell Volume 91.2 79.0 - 92.0 fL [facility] Mean Cell Hemoglobin 31.5 25.6 - 32.2 pg [facility] Mean Cell Hemoglobin Concentration 34.5 32.0 - 36.5 gm/dL [facility] Platelet 211 145 - 370 x10(3)/ L [facility] RDW Standard Deviation 46.8(H) 35.0 - 46.0 fL [facility] RDW coefficient of variation 14.1 10.9 - 14.4 % [facility] Mean Platelet Volume 9.3 9.0 - 12.0 fL [facility] Blood specimen (specimen) 09/16/2015 3:29 PM EDT 09/16/2015 3:29 PM EDT Narrative Resulting Agency Comment Spec In Lab Larry Larkin MD HEMATOLOGY ORDERABLE S Performing Organization Address [facility] Co de Phone Number [facility] [place] [address] * APTT (09/16/2015 3:29 PM EDT) Partial Thromboplastin Time 29 25 - 35 sec [facility] Comment: The recommended therapeutic range for full dose, unfractionated heparin at [facility] is 80 ? 114 seconds. The use of the anti-Xa (heparin) level rather than the PTT is recommended for monitoring anticoagulation intensity in critically ill patients receiving unfractionated heparin by continuous IV infusion. Blood specimen (specimen) 09/16/2015 3:29 PM EDT 09/16/2015 3:29 PM EDT Narrative Resulting Agency Comment Spec In Lab Lrary Larkin MD HEMATOLOGY ORDERABLE S Performing Organization Address [facility] de Phone Number [facility] [place] [address] * Prothrombin Time (09/16/2015 3:29 PM EDT) Prothrombin Time 14.3 12.0 - 15.0 sec [place] International Normalization Ratio 1.1 0.9 - 1.1 [facility] Blood specimen (specimen) 09/16/2015 3:29 PM EDT 09/16/2015 3:29 PM EDT Narrative Resulting Agency Comment Spec In Lab Larry Larkin MD HEMATOLOGY ORDERABLE S [facility] [place] [address] * (ABNORMAL) Comprehensive metabolic panel (non-fasting) (09/16/2015 3:29 PM EDT) Glucose 148 65 - 199 mg/dL [facility] Comment:Diabetes: >=200 mg/d L plus symptoms Blood Urea Nitrogen 45(H) 10 - 20 mg/dL [facility] Creatinine 6.99(H) 0.80 - 1.50 mg/dL [facility] Comment: Please note that the pediatric reference intervals supplied above were not validated at [facility]. Results from pediatric patients should be interpreted in conjunction to the patient's age, height and muscle mass. Sodium 136 135 - 145 mmol/L [facility] Potassium 5.0 3.5 - 5.0 mmol/L [facility] Comment:result rechecked-DANITZA Protein, Total 6.7 6.1 - 8.0 gm/dL [facility] Albumin 3.3 3.2 - 5.2 gm/dL [facility] [facility]AT[facility] Est Glomerular Filtration Rate 8(L) >=60 [facility] [...] the following links into your internet browser. [email or web address] Blood specimen (specimen) 09/16/2015 3:29 PM EDT 09/16/2015 3:29 PM EDT Narrative Resulting Agency Comment Spec In Lab Larry Larkin MD CHEMISTRY ORDERABLES Performing Organization Address City/[facility] Co de Phone Number [facility] [place] [address] * Magnesium (09/16/2015 3:29 PM EDT) Magnesium 0.75 0.69 - 1.07 mmol/L [facility] Blood specimen (specimen) 09/16/2015 3:29 PM EDT 09/16/2015 3:29 PM EDT Narrative Resulting Agency Comment Spec In Lab Larry Larkin MD CHEMISTRY ORDERABLES Performing Organization Address [facility] Co de Phone Number [facility] [place] [address] * POCT Glucose (09/16/2015 3:12 PM EDT) Glucose, POC 125 65 - 199 mg/dL [facility] Comment: Supplemental ranges: <140 mg/dL before meals <180 mg/dL all other times of the day Blood specimen (specimen) 09/16/2015 3:12 PM EDT 09/16/2015 3:12 PM EDT Larry Larkin MD POINT OF CARE TEST O RDERABLES [facility] [place] [address] * (ABNORMAL) BLOOD GAS 2 ARTERIAL (09/16/2015 2:02 PM EDT) pH, Arterial 7.37 7.35 - 7.45 [facility] PCO2, Arterial 43 35 - 45 mmHg [facility] PO2, Arterial 204(H) 85 - 104 mmHg [facility] Bicarbonate, Arterial 24.1 20.0 - 26.0 mmol/L [facility] Base Excess, Arterial -1.1 -3.0 - 3.0 mmol/L [facility] Hgb Blood Gas 11.4(L) 13.7 - 17.5 gm/dL [facility] Oxyhemoglobin, Arterial 98.8(H) 94.0 - 97.0 % [facility] Carboxyhemoglob in, Arterial 0.2 % [facility] Comment: Nonsmokers: 0.5-1.5% COHB Smokers: Variable, but usually less than 10% Toxic: 20-30% COHB Lethal: Greater than 60% COHB Methemoglobin, Arterial 0.3 <=1.5 % [facility] Na Whole Blood 135 135 - 145 mmol/L [facility] K Whole Blood 4.8 3.5 - 5.0 mmol/L [facility] Comment: Please note: Patients with WBC >100,000 may have falsely elevated Potassium levels. Contact the Clinical Chemistry Laboratory if there are any questions. ICa Whole Blood 1.08(L) 1.15 - 1.33 mmol/L [facility] Comment: Note: ??Total bilirubin higher than 20 mg/dL may lead to falsely low ionized calcium. CL Whole Blood 102 98 - 107 mmol/L [facility] Gluc Whole Bld 135 65 - 199 mg/dL [facility] Comment:Diabetes: >=200 mg/d L plus symptoms. Blood specimen (specimen) 09/16/2015 2:02 PM EDT 09/16/2015 2:02 PM EDT Larry Larkin MD POINT OF CARE TEST O RDERABLES Performing Organization Address [facility] Co de Phone Number [facility] [place] [address] * CMV Antibody, IgG (09/16/2015 10:28 AM EDT) CMV IgG Neg Neg [facility] Blood specimen (specimen) 09/16/2015 10:28 AM EDT 09/17/2015 7:28 AM EDT Narrative Resulting Agency Comment Spec In Lab Larry Larkin MD IMMUNOLOGY ORDERABLE S Performing Organization Address [facility] de Phone Number [facility] [place] [address] * EKG 12 Lead (09/16/2015 10:10 AM EDT) Ventricular rate 60 BPM MUSE SYSTEM Atrial Rate 60 BPM MUSE SYSTEM P-R Interval 184 ms MUSE SYSTEM QRS Duration 110 ms MUSE SYSTEM Q-T Interval 476 ms MUSE SYSTEM QTC Calculated (Bezet) 476 ms MUSE SYSTEM Calculated P [place] -14 degrees MUSE SYSTEM Calculated R [place] -44 degrees MUSE SYSTEM Calculated T [place] -26 degrees MUSE SYSTEM INTERPRETATION Sinus rhythm [...] Differential, Automated (09/16/2015 10:08 AM EDT) Pathologist [facility] [place] Neutrophil % 65.2 % [facility] Neutrophil Absolute 4.72 1.50 - 6.30 x10(3)/[facility] Lymph % 20.3 % [facility] Lymphocytes Abs 1.5 1.0 - 3.6 x10(3)/[facility] Monocyte % 8.1 % [facility] Monocyte Abs 0.6 0.2 - 1.0 x10(3)/[facility] Eos % 5.4 % [facility] Eosinophils Abs 0.4 0.0 - 0.5 x10(3)/[facility] Basophil % 0.7 % [facility] Baso Absolute 0.0 0.0 - 0.2 x10(3)/[facility] Immature Gran % 0.30 % [...] x10(3)/[facility] Blood specimen (specimen) 09/16/2015 10:08 AM EDT 09/16/2015 10:23 AM EDT Narrative Resulting Agency Comment Spec In Lab Larry Larkin MD HEMATOLOGY ORDERABLE S [facility] [place] [address] * (ABNORMAL) Hemogram (09/16/2015 10:08 AM EDT) Pathologist [facility] [place] White Blood Cell 7.2 4.0 - 10.0 x10(3)/ L [facility] Red Blood Cell 3.83(L) 4.63 - 6.08 x10(6)/mc L [facility] Hemoglobin 12.1(L) 13.7 - 17.5 gm/dL [facility] Hematocrit 35.8(L) 40.0 - 51.0 % [facility] Mean Cell Volume 93.5(H) 79.0 - 92.0 fL [facility] Mean Cell Hemoglobin 31.6 25.6 - 32.2 pg [facility] Mean Cell Hemoglobin Concentration 33.8 32.0 - 36.5 gm/dL [facility] Platelet 231 145 - 370 x10(3)/mc L [facility] [...] Lab Larry Larkin MD [place] [address] * Antibody screen (09/16/2015 10:08 AM EDT) Ab Screen Interp Negative [facility] Expires at [id number] on: 09/19/2015 [facility] Blood specimen (specimen) 09/16/2015 10:08 AM EDT 09/16/2015 10:17 AM EDT Narrative Resulting Agency Comment Spec In Lab Larry Larkin MD BLOOD BANK LAB ORDER IGNACIO [facility] [place] [address] * ABO/Rh Typing (09/16/2015 10:08 AM EDT) ABORH Type AB Pos [facility] Blood specimen (specimen) 09/16/2015 10:08 AM EDT 09/16/2015 10:17 AM EDT Narrative Resulting Agency Comment Spec In Lab Larry Larkin MD BLOOD BANK LAB ORDER IGNACIO Performing Organization Address [facility]/ZIP Co de Phone Number [facility] [place] [address] * APTT (09/16/2015 10:08 AM EDT) Partial Thromboplastin Time 28 25 - 35 sec [facility] Comment: The recommended therapeutic range for full dose, unfractionated heparin at [facility] is 80 ? 114 seconds. The use of the anti-Xa (heparin) level rather than the PTT is recommended for monitoring anticoagulation intensity in critically ill patients receiving unfractionated heparin by continuous IV infusion. Blood specimen (specimen) 09/16/2015 10:08 AM EDT 09/16/2015 10:23 AM EDT Narrative Resulting Agency Comment Spec In Lab Larry Larkin MD HEMATOLOGY ORDERABLE S Performing Organization Address [facility] Co de Phone Number [facility] [place] [address] * Prothrombin Time (09/16/2015 10:08 AM EDT) Prothrombin Time 14.0 12.0 - 15.0 sec [facility] [place] International Normalization Ratio 1.1 0.9 - 1.1 [facility] Blood specimen (specimen) 09/16/2015 10:08 AM EDT 09/16/2015 10:23 AM EDT Narrative Resulting Agency Comment Spec In Lab Larry Larkin MD HEMATOLOGY ORDERABLE S Performing Organization Address [facility] Co de Phone Number [facility] [place] [address] * (ABNORMAL) Phosphorus (09/16/2015 10:08 AM EDT) Phosphorus 5.0(H) 2.5 - 4.5 mg/dL [facility] Blood specimen (specimen) 09/16/2015 10:08 AM EDT 09/16/2015 10:23 AM EDT Narrative Resulting Agency Comment Spec In Lab Larry Larkin MD CHEMISTRY ORDERABLES Performing Organization Address [facility] de Phone Number [facility] [place] [address] * Magnesium (09/16/2015 10:08 AM EDT) Magnesium 0.83 0.69 - 1.07 mmol/L [facility] Blood specimen (specimen) 09/16/2015 10:08 AM EDT 09/16/2015 10:23 AM EDT Narrative Resulting Agency Comment Spec In Lab Larry Larkin MD CHEMISTRY ORDERABLES Performing Organization Address [facility] de Phone Number [facility] [place] [address] * (ABNORMAL) Comprehensive metabolic panel (non-fasting) (09/16/2015 10:08 AM EDT) Glucose 127 65 - 199 mg/dL [facility] Comment:Diabetes: >=200 mg/d L plus symptoms Blood Urea Nitrogen 44(H) 10 - 20 mg/dL [facility] Creatinine 7.50(H) 0.80 - 1.50 mg/dL [facility] Comment: Please note that the pediatric reference intervals supplied above were not validated at [facility]. Results from pediatric patients should be interpreted in conjunction to the patient's age, height and muscle mass. Sodium 139 135 - 145 mmol/L [facility] Potassium 4.9 3.5 - 5.0 mmol/L [facility] Protein, Total 7.4 6.1 - 8.0 gm/dL [facility] Albumin 3.8 3.2 - 5.2 gm/dL [facility] Aspartate Aminotransferase 15 0 - 39 unit/L [facility] Alanine Aminotransferase 18 0 - 55 unit/L [facility] Alkaline Phosphatase 65 40 - 120 unit/L [facility] Bilirubin, Total 0.9 0.2 - 1.3 mg/dL [facility] Bilirubin, Direct 0.1 0.0 - 0.3 mg/dL [facility] Est Glomerular Filtration Rate 7(L) >=60 [facility] [...] the following links into your internet browser. [email or web address] Blood specimen (specimen) 09/16/2015 10:08 AM EDT 09/16/2015 10:23 AM EDT Narrative Resulting Agency Comment Spec In Lab Larry Larkin MD CHEMISTRY ORDERABLES [facility] [place] [address] documented in this encounter Visit Diagnoses Diagnosis [...] (TYLENOL) tablet 650 mg 650 mg, Oral, CORRECTIONAL FOOD SERVICE SUPERVISOR TO O.R., 1 dose, On 09/16/15 at [...] (50 mg), Infiltration, ONCE, 1 dose, On 09/19/15 at 1345, For use in Interventional Radiology [...] HOURS, First dose (after last reorder) on Thu09/16/15 at 1830, Until Discontinued, Administer over 30 [...] (BENADRYL) injection 50 mg 50 mg, Intravenous, CORRECTIONAL FOOD SERVICE SUPERVISOR TO O.R., 1 dose, On Thu09/16/15 at [...] EDT 5,000 Units HYDROmorphone (DILAUDID) 1 mg/mL WAREHOUSE MANAGER 50 mL Intravenous, WAREHOUSE MANAGER ONLY, Starting on Thu09/16/15 at 1545, Until [...] (CELLCEPT) capsule 1,000 mg 1,000 mg, Oral, CORRECTIONAL FOOD SERVICE SUPERVISOR TO O.R., 1 dose, On Thu09/16/15 at [...] CONTINUOUS, Starting on Thu09/16/15 at 1545, Until 3/15/16 at 0842, Recovery (Recovery-Hospital Unit) Rate/Dose Verify [...] RN)[id number] (Given - Provider: Margarette Mota, JADEN) 0830 (Given - Provider: Pauline Miles, JADEN) BUpivacaine-EPINEPHrine 0.25 %-1:200,000 injection 20 mL (COMPLETED) 20 mL (50 mg), Infiltration, ONCE, 1 dose, On Thu09/19/15 at 1345, For use in Interventional Radiology (IR) only for procedural sedation with direct provider supervision and verbal order., Angio/IR (Intra-Procedure), Routine 1430 (Given - Provider: Therese Carpio RN - Comment: Given by DRY PLASTERER HELPER.) carvedilol (COREG) tablet 12.5 mg (CANCELED) 12.5 [...] Therese Carpio RN - Comment: Given by DRY PLASTERER HELPER.) magnesium oxide (MAG-OX) tablet 400 mg (CANCELED) [...] Sonu Lara, RN)[id number] (Given - Provider: Keyana Moy RN) 0826 (Given - Provider: Tamela Mckeon RN)[id number] [...] RN) 0826 (Given - Provider: Tamela Mckeon, JADEN)2056 (Given - Provider: Margarette Mota, JADEN) 0831 [...] Routine 0705 (Given - Provider: Keyana Moy, JDAEN) meTOPROLOL (LOPRESSOR) injection 5 mg (CANCELED) 5 [...] (Intra-Procedure), Routine 1425 (Given - Provider: Therese Carpio, JADEN)1436 (Given - Provider: Therese Carpio, JADEN)1446 (Given [...] Intravenous, DAILY, 1 dose, First dose on Thu16 at 0900, POD #2. If receiving thymoglobulin, [...] Oral, 2 TIMES DAILY, First dose on 09/17/15 at 0900, Until Discontinued, DO NOT CRUSH [...] documented in this encounter Care Teams Grade And Center Marker Relationship Specialty Start Date End Date Albania Nunez DO [address] [place] [address] PCP - General 09/03/12 03/17/22 Ruchi Valles RN Nurse Clinic Transplant Surgery 07/30/15 documented as of this encounter
--- OUTSIDE RECORDS SUMMARY | 2024-05-16 17:39 | XMS_ITS | Encounter Summary ---
Author Organization [facility] [place] [address] Care Team Providers Care Blind Hooker Name Role Phone AdeelUrbano Primary Care Provider [phone] Reason for Visit * Auth/Cert Specialty Diagnoses / Procedures Referred By Humberto flor Referred To Contact Diagnoses RENAL FAILURE Kidney transplant. UNOS #[id number] Procedures PRO TRANSPLANTATION OF KIDNEY PRO TRANSPLANT, PREP CADAVER RENAL GRAFT @KIDNEY TRANSPLANT, WITHOUT RECIPIENT NEPHRECTOMY @PREPARATION CADAVERIC RENAL ALLOGRAFT Referral ID Status Reason Start Date Expiration Date Visits Re quested Visits Authorized [id number] 1 1 Encounter Details Date Type Department Care Team (Late st Contact Info) Description 09/16/2015 11:38 AM EDT Anesthesia [place] [address] Maxi Garcia MD [facility] [place] [address] Sara Zhong MD [facility] [place] [address] Anesthesia Record Procedure Summary Procedure Name Responsible [...] by Yoselin Tomlin RN 09/16/15 1427 by Knadace Valenzuela RN Incision 09/16/15; abdomen; o ther (see comments) (draini); (wound drain to small bulb); 06/17/18; 1547 09/16/15 0000 by Shira Kemp RN 06/17/18 1547 by Karly Parra RN Incision 09/16/15; abdomen; 06/17/18; 1547 09/16/15 0000 by Shira Kemp RN 06/17/18 1547 by Karly Parra RN (RETIRED) Peripheral IV Line - Single Lumen 09/16/15; 1028; cephalic vein right (lateral side of arm); orzk-vpv-sajkak catheter system; 18 gauge, 1 in length; [...] 09/17/15; 1210 09/16/15 1205 by Miller Seals, RESUME SPECIALIST 09/17/15 1210 by Kalyani Fuchs RN (RETIRED) Peripheral IV Line - Single Lumen 09/16/15; 1210; metacarpal vein right (top of hand); xtjz-mep-evlurj catheter system; 16 gauge; MD oJse; leaking; 09/18/15; 1223 09/16/15 1210 by Miller Seals, RESUME SPECIALIST 09/18/15 1223 by Sonu Lara CRNA (RETIRED) Peripheral IV Line - Single Lumen 09/16/15; 1210; median vein right (underside of arm); pztt-wdt-zwizin catheter system; 16 gauge; MD Jose; no [...] Garcia MD - 09/16/2015 3:41 PM EDT [facility] Department of Anesthesiology Post-procedure Note Patient: Cody Bolden Procedure Summary Date Anesthesia Start Anesthesia Stop Room / Location 09/16/15 2587 5156 [facility] OR [facility] MAIN OR Procedure Diagnosis Surgeon Responsible Provider @KIDNEY TRANSPLANT, WITHOUT RECIPIENT NEPHRECTOMY (N/A Flank); @PREPARATION CADAVERIC RENAL ALLOGRAFT (N/A ) (Kidney transplant. UNOS #[id number]) Franko Larkin MD Allen, George K, MD All Anesthesia Providers: Anesthesiologist: Maxi Garcia MD RESUME SPECIALIST: Miller Seals CRNA Last (1hr) Vitals: BP Temp Pulse Resp SpO2 Patient Location: PACU/[facility] Level of Consciousness: Conscious but Sleepy Pain [...] performed by Que Amaro MD at [facility] MAIN OR History Substance Use Topics ??? [...] and spouse whom. Plan discussed with attending, RESUME SPECIALIST and resident. PAT Staff Note documented in this encounter Plan of Treatment Upcoming Encounters Date Type Department Care Team (Late st Contact Info) Description 06/22/2024 11:00 AM EST TH Visit (TeleHealth) Cardiology at [address] [address] Byron Brown MD [facility] [place] [address] 07/14/2024 10:00 AM EST Hospital Encounter [place] [address] Arrived documented as of this [...] chloride 0.9% 56 mL 375 mg, Intravenous, NEUROSURGICAL PHYSICIAN ASSISTANT TO O.R., 1 dose, On Thu09/16/15 at [...] g documented in this encounter Care Teams Blind Hooker Relationship Specialty Start Date End Date AdeelUrbanoDO [address] [place] [address] PCP - General 09/03/12 03/17/22 Ruchi Valles RN Nurse Clinic Transplant Surgery 07/30/15 documented as of this encounter
--- OUTSIDE RECORDS SUMMARY | 2024-05-16 17:39 | XMS_ITS | Encounter Summary ---
Author Organization [facility] [place] [address] Care Team Providers Care Consumer Marketing Manager Name Role Phone AdeelUrbano boland Primary Care Provider Encounter Details Date Type Department Care Team (Late st Contact Info) Description 09/19/2015 Orders Only [place] [address] Samia Escalante, RN Social History [...] AM EST Visit (TeleHealth) Cardiology at [address] [address] Byron Brown MD [facility] [address] 07/14/2024 10:00 AM EST Hospital Encounter Non-Invasive [place] [address] Arrived documented as of this encounter Visit Diagnoses Not on filedocumented in this encounter Care Teams Consumer Marketing Manager Relationship Specialty Start Date End Date Urbano Denis DO [address] [place] [address] PCP - General 09/03/12 03/17/22 Ruchi Valles RN Nurse Clinic Transplant Surgery 07/30/15 documented as of this encounter
--- OUTSIDE RECORDS SUMMARY | 2024-05-16 17:40 | XMS_ITS | Encounter Summary ---
Author Organization [facility] [place] [address] Care Team Providers Care Staff Reporter Name Role Phone Adeel Urbano KIRBY Primary Care Provider Encounter Details Date Type Department Care Team (Latest Contact Info) Description 07/17/2015 1:15 PM EST Laboratory Appointment Lab [address] [place] [address] Pre-transplant evaluation for kidney transplant; [...] EST TH Visit (TeleHealth) Cardiology at [address] [address] Byron Brown MD [facility] [place] [address] 07/14/2024 10:00 AM EST Hospital Encounter Non[place] [address] Arrived documented as of this encounter Procedures Procedure Name Priority Date/Time Associated Diagnosis Comments TRANPLANT: BLOOD DRAW KIT REQUEST - INTERNAL Routine 07/17/2015 1:44 PM EST HSV 1 AND 2 IGG ANTIBODIES Routine 07/17/2015 1:44 PM EST Pre-transplant evaluation for kidney transplant End stage renal disease TITUS-TMA VIRUS ANTIBODIES Routine 07/17/2015 1:44 PM EST [...] TXP BLD Draw Req Sample in lab. [facility] Blood specimen (specimen) Venous Draw / Unknown 07/17/2015 1:44 PM EST 07/17/2015 2:03 PM EST Narrative Resulting Agency Comment Spec In Lab Tal [place] MD LAB SEND OUT ROCHELLE JENNINGS Performing Organization Address [facility] Co de Phone Number [email or web address] * Varicella zoster Antibody, IgG (07/17/2015 1:44 PM EST) Varicella Zoster Antibody IgG Pos [facility] Blood specimen (specimen) 07/17/2015 1:44 PM EST 07/18/2015 7:56 AM EST Narrative Resulting Agency Comment Spec In Lab Tal [place] MD IMMUNOLOGY ORDERA BLES Performing Organization Address City/[facility]/ZIP Co de Phone Number [facility] DANELLEENNIUM * Toxoplasma Antibody, IgM (07/17/2015 1:44 PM EST) Toxoplasma Antibody IgM Neg Neg [facility]ER MILLENNIUM Blood specimen (specimen) 07/17/2015 1:44 PM EST 07/18/2015 7:56 AM EST Narrative Resulting Agency Comment Spec In Lab Tal [place] MD IMMUNOLOGY ORDERA BLES Performing Organization Address City/[facility] Co de Phone Number [facility] MADONNAIUM * Toxoplasma Antibody, IgG (07/17/2015 1:44 PM EST) Toxoplasma Antibody IgG Neg Neg CERNER DANELLEENNIUM Blood specimen (specimen) 07/17/2015 1:44 PM EST 07/18/2015 7:56 AM EST Narrative Resulting Agency Comment Spec In Lab Tal [place] MD IMMUNOLOGY ORDERA BLES Performing Organization Address [facility] Co de Phone Number [facility] DANELLEENNIUM * (ABNORMAL) HSV 1 and 2 IgG Antibodies (07/17/2015 1:44 PM EST) HSV Type 1 Ab, IgG Pos(A) Neg CERNER MILLENNIUM HSV Type 2 Ab, IgG Equivocal( A) Neg C[facility] MILLENNIUM Blood specimen (specimen) 07/17/2015 1:44 PM EST 07/18/2015 7:56 AM EST Narrative Resulting Agency Comment Spec In Lab Tal [place] MD IMMUNOLOGY ORDERA BLES Performing Organization Address [facility] Co de Phone Number [facility] MADONNAIUM * (ABNORMAL) Titus-Tam Virus Antibodies (07/17/2015 1:44 [...] In Lab Tal [place] MD IMMUNOLOGY ORDERA [facility] Performing Organization Address City/State/[facility] Co de Phone Number [facility] documented in this encounter Visit Diagnoses Diagnosis Pre-transplant evaluation for kidney transplant Other specified pre-operative examination End stage renal disease documented in this encounter Care Teams Staff Reporter Relationship Specialty Start Date End Date Urbano Denis DO [address] [place] [address] PCP - General 09/03/12 03/17/22 documented as of this encounter
--- OUTSIDE RECORDS SUMMARY | 2024-05-16 17:40 | XMS_ITS | Encounter Summary ---
Author Organization [facility] [place] [address] Care Team Providers Care Tobacco Wrapping Machine Tender Name Role Phone AdeelUrbano boland Primary Care Provider Encounter Details Date Type Department Care Team (Late st Contact Info) Description 06/20/2015 Multidisciplinary Ca re Committee [place] [address] Ellen Foote RN Social History Tobacco Use [...] for Kidney transplant. He have seen the Sand Operator;Dr. Marcelo and have recommended not to treat his Hepatitis C. He will be treated after he received a transplant, the team have agreed with the recommendation. His DSE was also.completed and is normal. documented in this encounter Plan of Treatment Upcoming Encounters Date Type Department Care Team (Late st Contact Info) Description 06/22/2024 11:00 AM EST Visit (TeleHealth) Cardiology at [address] [address] Byron Brown MD [facility] [place] [address] 07/14/2024 10:00 AM EST Hospital Encounter Non-[place]vasive [place] [address] Arrived documented as of this encounter Visit Diagnoses Not on filedocumented in this encounter Care Teams Tobacco Wrapping Machine Tender Relationship Specialty Start Date End Date Urbano Denis DO [address] [facility] [address] [place] [address] PCP - General 09/03/12 03/17/22 documented as of this encounter
--- OUTSIDE RECORDS SUMMARY | 2024-05-16 17:40 | XMS_ITS | Encounter Summary ---
[place] [address] Care Team Providers Care Tractor Engine Mechanic Name Role Phone Urbano Dneis DO Primary Care Provider [phone] Reason for Referral * Diagnostic Test (Routine) - Closed Specialty Diagnoses / Procedures Referred By Contac t Referred To Contact Diagnoses ESRD (end stage renal disease) Procedures Echo pharm stress test (DSE) Shin Sebastian MD [facility] [place] [address] [facility] [place] [address] Referral ID Status Reason Start Date Expiration Date V isits Requested Visits Authorized [id number] Closed Specialty Service Requested 05/29/2015 05/28/2016 1 1 Reason for Visit * Diagnostic Test (Routine) - Closed Specialty Diagnoses / Procedures Referred By Contac t Referred To Contact Diagnoses ESRD (end stage renal disease) Procedures Echo pharm stress test (DSE) Shin Sebastian MD [facility] [place] [address] [facility] [place] [address] Referral ID Status Reason Start Date Expiration Date V isits Requested Visits Authorized [id number] Closed Specialty Service Requested 05/29/2015 05/28/2016 1 1 Encounter Details Date Type Department Care Team (Latest Contact Info) Description 06/14/2015 9:47 AM EST - 06/14/2015 11:59 PM EST Hospital Encounter Non-Invasive Cardiology Lab [facility] [place] [address] Shin Sebastian MD [facility] [place] [address] ESRD (end stage renal disease) Discharge Disposition: [...] Visit (TeleHealth) Cardiology at [address] [phone] Byron Brown MD [facility] [place] [address] 07/14/2024 10:00 AM EST Hospital Encounter Non-Invasive [place] [phone] Arrived documented as of this encounter Procedures Procedure Name Priority Date/Time Associated Diagnosis Comments STRESS ECHO W CONTRAST Routine 06/14/2015 11:32 AM EST ESRD (end stage renal disease) documented in this encounter Results * STRESS ECHO W CONTRAST (06/14/2015 11:32 AM EST) EF 60 HEARTRF [employer] SYSTEM Anatomical Region Laterality Modality Other 06/14/2015 Narrative 06/14/2015 12:01 PM EST Procedure: ?Stress Echocardiogram Patient: ?MABLE DAVENPORT P ? (Age): 1950(64y) Med Rec#: ? [id number] ?Sex: ?M ? Site Loc: ? [facility] ?Ht / Wt: ??177(cm)/102(kg) Pt. Loc: ?Echo Lab ?BSA: ?2.19 Study Date: ?? 06/14/2015 ?Pt. Type: Tape: ? Referring: Shin Sebastian ([id number]) Referring: UNKNOWN Reading: Joseph Zuniga ([id number]) Powder Room Attendant: Chiquis Kelly Nurse: Meka Kim Diagnosis: *ICD-10-PCS End stage renal disease (N18.6) CPT Codes: *Stress Echo (20938) *Color Doppler (10434) *Doppler LTD (18423) *ECG Interpretation (38772) *Definity (59563TU) Stage ? BP ?HR ? Rest ?157/82 [...] E-wave Vmax ?0.5 ?m/sec ? MV deceleration [id number] ?msec ? MV A-wave Vmax ?0.6 ?m/sec [...] ?Normal ?Normal ? Mid-Inferoseptal ?Normal ?Normal ? [place]-Septal ? Normal ?Normal ? [place]-Anterior ? Normal ?Normal ? [place]-Lateral ?Normal ?Normal ? [place]-Inferior ? Normal ?Normal ? [place]-Tip ?Normal ?Normal ? This report has been electronically signed by: Joseph Zuniga M.D. ? 06/14/2015 12:01:18 Images reviewed and interpretation verified [facility] Cardiac Ultrasound Laboratory Procedure Note Joseph Zuniga MD - 06/14/2015 Procedure: Stress Echocardiogram Patient: MABLE Gomez (Age): 1950(64y) Med Rec#: [id number] Sex: M Site Loc: [facility] Ht / Wt: 177(cm)/102(kg) Pt. Loc: Echo Lab BSA: 2.19 Study Date: 06/14/2015 Pt. Type: Tape: Referring: Shin Sebastian ([id number]) Referring: UNKNOWN Reading: Joseph Zuniga ([id number]) Powder Room Attendant: Chiquis Kelly Nurse: Meka Kim Diagnosis: *ICD-10-PCS End stage renal disease (N18.6) CPT Codes: *Stress Echo (66151) *Color Doppler (52034) *Doppler LTD (81260) *ECG Interpretation (33692) *Definity (74826NF) Stage BP HR Rest 157/82 60 Low [...] MV E-wave Vmax 0.5 m/sec MV deceleration [id number] msec MV A-wave Vmax 0.6 m/sec MV [...] Normal Mid-Inferior Normal Normal Mid-Inferoseptal Normal Normal [place]-Septal Normal Normal [place]-Anterior Normal Normal [place]-Lateral Normal Normal [place]-Inferior Normal Normal [place]-Tip Normal Normal This report has been electronically signed by: Joseph Zuniga M.D. 06/14/2015 12:01:18 Images reviewed and interpretation verified [facility] Cardiac Ultrasound Laboratory Shin Sebastian MD ECHO [...] mLs documented in this encounter Care Teams Tractor Engine Mechanic Relationship Specialty Start Date End Date Urbano Denis DO [address] [place] [address] PCP - General 09/03/12 03/17/22 documented as of this encounter
--- OUTSIDE RECORDS SUMMARY | 2024-05-16 17:40 | XMS_ITS | Encounter Summary ---
Author Organization [facility] [place] [address] Care Team Providers Care Tower Equipment Repairer Name Role Phone Adeel Urbano KIRBY Primary Care Provider [phone] Encounter Details Date Type Department Care Team (Late st Contact Info) Description 07/16/2015 Abstract [place] [address] Aurora Kessler Social History Tobacco [...] 11:00 AM EST Visit (TeleHealth) Cardiology at [address] [phone] Byron Brown MD [facility] [address] 07/14/2024 10:00 AM [facility] Hospital Encounter Non-[place]vasive [place] [address] Arrived documented as of this encounter Visit Diagnoses Not on filedocumented in this encounter Care Teams Tower Equipment Repairer Relationship Specialty Start Date End Date Urbano Denis DO [address] [place] [address] PCP - General 09/03/12 03/17/22 documented as of this encounter
--- OUTSIDE RECORDS SUMMARY | 2024-05-16 17:40 | XMS_ITS | Encounter Summary ---
[place] [address] Care Team Providers Care Radar Scientist Name Role Phone Urbano Denis DO Primary Care Provider [phone] Reason for Referral * Diagnostic Test (Routine) - Closed Specialty Diagnoses / Procedures Referred By Contac t Referred To Contact Radiology Diagnoses ESRD on dialysis Procedures IR line/tube removal recovery room- Jaz Gregorio MD [facility] [place] [address] [place] [address] Referral ID Status Reason Start Date Expiration Date V isits Requested Visits Authorized [id number] Closed Specialty Service Requested 07/18/2015 07/17/2016 1 1 Reason for Visit * Diagnostic Test (Routine) - Closed Specialty Diagnoses / Procedures Referred By Contac t Referred To Contact Radiology Diagnoses ESRD on dialysis Procedures IR line/tube removal recovery room- Jaz Gregorio MD [facility] [place] [address] [place] [address] Referral ID Status Reason Start Date Expiration Date V isits Requested Visits Authorized [id number] Closed Specialty Service Requested 07/18/2015 07/17/2016 1 1 Encounter Details Date Type Department Care Team (Latest Contact Info) Description 07/24/2015 12:25 PM EST - 07/24/2015 11:59 PM EST Hospital Encounter [facility] [place] [address] Jomar Franco MD [facility] [place] [address] ESRD on dialysis Discharge Disposition: Home Social [...] Estrada RN - 07/24/2015 2:05 PM EST [facility] Vascular and Interventional Radiology Discharge Instructions [...] is during regular office hours, please call [phone]. If it is after regular office hours, or on weekends or holidays, please call [phone] and ask to speak to the Router Operator Pin admission liaison for Interventional Radiology. Revised 07/20/15 documented in [...] Estrada RN - 07/24/2015 2:02 PM EST [facility] Vascular and Interventional Radiology Discharge Instructions [...] is during regular office hours, please call [phone]. If it is after regular office hours, or on weekends or holidays, please call [phone] and ask to speak to the Router Operator Pin admission liaison for Interventional Radiology. You may resume your regular diet as tolerated. documented in this encounter Plan of Treatment Upcoming Encounters Date Type Department Care Team (Late st Contact Info) Description 06/22/2024 11:00 AM EST TH Visit (TeleHealth) Cardiology at [address] [phone] Byron Brown MD [facility] [place] [address] 07/14/2024 10:00 AM EST Hospital Encounter Non-Invasive Cardiology Lab [facility] [place] [address] Arrived documented as of this encounter Procedures [...] tunneled HD catheter which was placed in [place]. Technique: ??The patient was positioned supine on [...] from angio recovery. Fellow: Gibson Avelar MD(pager #[phone]) Attending: Dr. Ghassan Haque, was present for the procedure. Jomar Franco MD IMG IR ORDERABLES documented in this encounter Visit Diagnoses Diagnosis ESRD on dialysis End stage renal disease documented in this encounter Care Teams Radar Scientist Relationship Specialty Start Date End Date Urbano Denis DO [address] [place] [address] PCP - General 09/03/12 03/17/22 documented as of this encounter
--- OUTSIDE RECORDS SUMMARY | 2024-05-16 17:40 | XMS_ITS | Encounter Summary ---
Author Organization [facility] [place] [address] Care Team Providers Care Power System Engineer Name Role Phone AdeelUrbano Primary Care Provider Encounter Details Date Type Department Care Team (Late st Contact Info) Description 09/04/2015 External Results [place] [address] Social History Tobacco Use Types [...] EST TH Visit (TeleHealth) Cardiology at [address] [phone] Byron Brown MD [facility] [place] [address] 07/14/2024 10:00 AM EST Hospital Encounter Non-[place] [address] Arrived documented as of this encounter Procedures Procedure Name Priority Date/Time Associated Diagnosis Comments TXP FOLLOW UP RENAL RECIPIEN T WORK-UP Routine 08/08/2015 documented in this encounter Results * Transplant: Renal Recipient Work-up (08/08/2015) Historical Provider CHEMISTRY ORDERAB LES documented in this encounter Visit Diagnoses Not on filedocumented in this encounter Care Teams Power System Engineer Relationship Specialty Start Date End Date Urbano Denis DO [address] [place] [address] PCP - General 09/03/12 03/17/22 Ruchi Valles RN Nurse Clinic Transplant Surgery 07/30/15 documented as of this encounter
--- OUTSIDE RECORDS SUMMARY | 2024-05-16 17:40 | XMS_ITS | Encounter Summary ---
Author Organization [facility] [place] [address] Care Team Providers Care Greenstone Polisher Operator Name Role Phone AdeelUrbano boland Primary Care Provider Encounter Details Date Type Department Care Team (Latest Contact Info) Description 05/16/2015 4:10 PM EST Laboratory Appointment Lab [address] [place] [address] Hypertension; Proteinuria; DM type 2 [...] EST TH Visit (TeleHealth) Cardiology at [address] [phone] [facility] [place] [address] 07/14/2024 10:00 AM EST Hospital Encounter Non-Invasive Cardiology Lab [place] [phone] Arrived Pending Results Name Type Priority Associated [...] of HCV genotype was carried out using [employer] XT-8 detection system. Method: Plasma was initially subjected to quantitative RT-PCR using the Kirsten JUNE Ampliprep/JUNE Taqman HCV assay. The HCV genotyping was carried out using [employer] XT-8 detection system that targets 5? -untranslated region of the HCV genome. The amplicon from the Kirsten assay served as a template for the nested PCR followed by a direct analysis on the electrochemical Smashrun XT-8 detection system for the identification of HCV genotypes. The genotypes/subtypes detected by this method include 1a, 1b, 2a/c, 2b, 3, 4, 5 and 6a/b. This test was validated and its performance characteristics determined by the Molecular Pathology Laboratory at [facility]. It has not been cleared or approved [...] Clin Infect Dis. 2012; 55:S3-9. Poordad F, [place] D. Treating hepatitis C: current standard of care and emerging direct-acting antiviral agents. J Viral Hepat. 2012; 19:449-64. Amrita MH, Elias EB. Prevalence and treatment of hepatitis C virus genotypes 4, 5, and 6. Clin Gastroenterol Hepatol. 2005; 3:S43-F078. Kristofer JS, Aspandrel E, Sole D, Elder AJ, Richy ME. Current and emerging antiviral treatments for hepatitis C infection. Br J Clin Pharmacol. 2012 Feb 13. [Epub ahead of print] [facility] Comment: [VERIFIED DATE]05.23.15 Verified By:Fatemeh Garcia (Electronic Signature) Blood specimen (specimen) 05/16/2015 4:33 PM EST 05/18/2015 8:13 AM EST Narrative Resulting Agency Comment Spec In Lab Tulio Marcelo MD HEMATOLOGY ORDERABL ES [facility] Organization Address City/State/ZIP Co de Phone Number CERROSALINA PEACOCKIUM * Differential, Automated (05/16/2015 4:33 PM EST) [...] MILLENNIUM Hematocrit 34.4(L) 40.0 - 51.0 % [facility]ICT MCCLENDON[facility] Mean Cell Volume 92.5(H) 79.0 - 92.0 fL [facility]OCK[facility] Mean Cell Hemoglobin 30.9 25.6 - 32.2 pg [facility]ICT [facility]OCK[facility] Mean Cell Hemoglobin Concentration 33.4 32.0 - 36.5 gm/dL [facility]ICT PEACOCKIUM Platelet 228 145 - 370 x10(3)/mc L [facility]EN[facility]ICT MCCLENDONENNIUM RDW Standard Deviation 50.0(H) 35.0 - 46.0 fL [facility]ICT [facility]OCK[facility] RDW coefficient of variation 15.0(H) 10.9 - 14.4 % [facility]ICT PEACOCKI[facility] Mean Platelet Volume 9.9 9.0 - 12.0 fL [facility]EDICT COOK Blood specimen (specimen) 05/16/2015 4:33 PM EST 05/16/2015 4:57 PM EST Narrative Resulting Agency Comment Spec In Lab Tulio Marcelo MD HEMATOLOGY ORDERABL ES Performing Organization Address [facility] Co de Phone Number BENEDICT COOK * Miscellaneous Lab request (05/16/2015 4:33 PM EST) Label Request received in lab. BENEDICT COOK Blood specimen (specimen) 05/16/2015 4:33 PM EST 05/16/2015 4:57 PM EST Narrative Resulting Agency Comment Spec In Lab Tulio Marcelo MD LAB SEND OUT ORDERA BLES Performing Organization Address [facility] Co de Phone Number BENEDICT COOK * Hepatitis C RNA, quantitative, PCR (05/16/2015 4:33 PM EST) HCV Viral Load 471,245 IU/mL [facility]EDICT COOK HCV Viral Load Result: [id number] IU/mL Indication for Study: Hepatitis C Infection Analysis: A quantitiative real time reverse transcriptase PCR assay was performed on extracted viral RNA for the purpose of quantification. Sample: plasma (1 mL minimum volume) Method: Kirsten June TaqMAN 48 HCV Linear Range: 15 IU/mL - 100,000,000IU/mL (95% CI) Note: This assay is being performed in the [facility] Molecular Pathology Laboratory. Gibson Good, Ph.D. Director, Molecular Pathology [facility] Comment: [VERIFIED DATE]05.18.15 Verified By:Xiomy Gupta (Electronic Signature) Blood specimen (specimen) 05/16/2015 4:33 PM EST 05/18/2015 8:13 AM EST Narrative Resulting Agency Comment Spec In Lab Tulio Marcelo MD MOLECULAR ORDERABLE S Performing Organization Address [facility] de Phone Number [facility] * Prothrombin Time (05/16/2015 4:33 PM EST) Pathologist [facility] Prothrombin Time 13.7 12.0 - 15.0 sec [facility] Comment: Transfusion Committee Guidelines: INR less than 2.0, PTT less than OR equal to 43.5 seconds, or Fibrinogen greater than or equal to 100 mg/dl indicate adequate procoagulant activity for hemostasis in patients without underlying bleeding disorders. International Normalization Ratio 1.0 0.9 - 1.1 [facility] Blood specimen (specimen) 05/16/2015 4:33 PM EST 05/16/2015 4:57 PM EST Narrative Resulting Agency Comment Spec In Lab Tulio Marcelo MD HEMATOLOGY ORDERABL ES Performing Organization Address [facility] Phone Number [facility] * (ABNORMAL) Comprehensive metabolic panel (non-fasting) (05/16/2015 4:33 PM EST) Pathologist [facility] Glucose 115 65 - 199 mg/dL [facility] Comment:Diabetes: >=200 mg/d L plus symptoms Blood Urea Nitrogen 22(H) 10 - 20 mg/dL [facility] MILLENNIUM Creatinine 4.29(H) 0.80 - 1.50 mg/dL CERNER MILLENNIUM Comment: Please note that the pediatric reference intervals supplied above were not validated at [facility]. Results from pediatric patients should be interpreted in conjunction to the patient's age, height and muscle mass. Sodium 141 135 - 145 mmol/L [facility] MILLENNIUM Potassium 4.4 3.5 - 5.0 mmol/L [...] the following links into your internet browser. [email or web address] [email or web address] Blood specimen (specimen) 05/16/2015 4:33 PM EST [...] coma documented in this encounter Care Teams Greenstone Polisher Operator Relationship Specialty Start Date End Date Urbano Denis DO [address] [place] [address] PCP - General 09/03/12 03/17/22 documented as of this encounter
--- OUTSIDE RECORDS SUMMARY | 2024-05-16 17:40 | XMS_ITS | Encounter Summary ---
Author Organization [facility] [place] [address] Care Team Providers Care Punch Box Tender Name Role Phone Urbano Denis DO Primary Care Provider [phone] Encounter Details Date Type Department Care Team (Late st Contact Info) Description 05/29/2015 11:00 AM EST Office Visit [place] [address] Jennifer Amaro MD [facility] [place] [place] [address] A-V fistula Social History Tobacco Use Types [...] EXTREMITY performed by Jennifer Amaro MD at [facility] MAIN OR FAMILY HISTORY: No family [...] of the left hand. Neurological: Normal symmetric spray maker strength in the bilateral hands. He has [...] EST TH Visit (TeleHealth) Cardiology at [address] [phone] Byron Brown MD [facility] [place] [address] 07/14/2024 10:00 AM EST Hospital Encounter Non-[place] [phone] Arrived documented as of this encounter Visit Diagnoses Diagnosis A-V fistula Arteriovenous fistula, acquired documented in this encounter Care Teams Punch Box Tender Relationship Specialty Start Date End Date Urbano Denis DO [address] [place] [address] PCP - General 09/03/12 03/17/22 documented as of this encounter
--- OUTSIDE RECORDS SUMMARY | 2024-05-16 17:40 | XMS_ITS | Encounter Summary ---
Author Organization [place] [address] Care Team Providers Care Purchasing Expeditor Name Role Phone Urbano Denis DO Primary Care Provider [phone] Reason for Visit * Auth/Cert - Closed Specialty Diagnoses / Procedures Referred By Humberto flor Referred To Contact Diagnoses ESRD ESRD Procedures AV FISTULA CREATION, DIRECT HEMODIALYSIS, ANY SITE, EG ASHWINI FISTULA UPPER EXTREMITY AV FISTULA CREATION, DIRECT HEMODIALYSIS, ANY SITE, EG ASHWINI FISTULA UPPER EXTREMITY Referral ID Status Reason Start Date Expiration Date Visits Re quested Visits Authorized [id number] Closed 1 1 Encounter Details Date Type Department Care Team (Late st Contact Info) Description 05/09/2015 12:28 PM [facility] - 05/09/2015 5:37 PM [facility] Hospital Encounter [place] [address] Jennifer Amaro MD [facility] [place] [address] CKD (chronic kidney disease), unspecified stage Discharge [...] concerning symptoms The number for questions is [phone] before 5 PM weekdays and [phone] after 5 PM and on weekends (ask for the General Surgery resident medication technician). Activity level: Do not lift more [...] Del Castillo MD General Surgery, PGY2 P# [id number] documented in this encounter H&P Notes * [...] Operative Note Patient Name: Cody Bolden : [id number] MR#: [id number] Case Date: 05/09/2015 Surgeon: Surgeon(s) and Role: [...] EST TH Visit (TeleHealth) Cardiology at [address] [phone] Byron Brown MD [facility] [place] [address] 07/14/2024 10:00 AM EST Hospital Encounter Non-Invasive [place] [address] Arrived documented as of this [...] POC 98 65 - 199 mg/dL [facility] Comment: Supplemental ranges: <140 mg/dL before meals <180 mg/dL all other times of the day Blood specimen (specimen) 05/09/2015 1:30 PM EST 05/09/2015 1:30 PM EST Jennifer Amaro MD POINT OF CARE TEST ORDERABLES [facility] * Potassium (05/09/2015 12:45 PM EST) Potassium 4.2 3.5 - 5.0 mmol/L [facility] Comment: Please note: ??Patients with WBC >100,000 [...] Procedure) 1404 (New Bag - Prov ider: aTl Owens CRNA)1547 (Anesthesia Volume Adjustment - Provider: [...] RN) documented in this encounter Care Teams Purchasing Expeditor Relationship Specialty Start Date End Date Urbano Denis DO [address] [place] [address] PCP - General 09/03/12 03/17/22 documented as of this encounter
--- OUTSIDE RECORDS SUMMARY | 2024-05-16 17:40 | XMS_ITS | Encounter Summary ---
Author Organization [facility] [place] [address] Care Team Providers Care Music Education Adjunct Professor Name Role Phone Adeel Urbano KIRBY Primary Care Provider Encounter Details Date Type Department Care Team (Late st Contact Info) Description 07/17/2015 Abstract [place] [address] Aurora Kessler Social History Tobacco [...] EST TH Visit (TeleHealth) Cardiology at [address] [phone] Byron Brown MD [facility] [place] [address] 07/14/2024 10:00 AM EST Hospital Encounter Non-[place] [address] Arrived documented as of this encounter Visit Diagnoses Not on filedocumented in this encounter Care Teams Music Education Adjunct Professor Relationship Specialty Start Date End Date Urbano Denis DO [address] [place] [address] PCP - General 09/03/12 03/17/22 documented as of this encounter
--- OUTSIDE RECORDS SUMMARY | 2024-05-16 17:40 | XMS_ITS | Encounter Summary ---
Author Organization [facility] Address [facility] [place] [address] Care Team Providers Care Line Prep Cook Name Role Phone Urbano Denis DO Primary Care Provider [phone] Reason for Referral * Diagnostic Test (Routine) - Closed Specialty Diagnoses / Procedures Referred By Humberto flor Referred To Contact Radiology Diagnoses ESRD on dialysis Procedures IR line/tube removal recovery room- [facility] Jaz Mayorga MD [facility] [place] [address] [place] [address] Referral ID Status Reason Start Date Expiration Date V isits Requested Visits Authorized [id number] Closed Specialty Service Requested 07/18/2015 07/17/2016 1 1 Encounter Details Date Type Department Care Team (Late st Contact Info) Description 07/18/2015 Orders Only Nephrology [place] [address] Jaz Mayorga MD [facility] [place] [address] ESRD on dialysis Social History [...] EST TH Visit (TeleHealth) Cardiology at [address] [phone] Byron Brown MD [facility] [place] [address] 07/14/2024 10:00 AM EST Hospital Encounter Non-[place] [phone] Arrived documented as of this encounter Results * IR line/tube removal recovery room- [facility] (07/24/2015 1:55 PM EST) Anatomical Region Laterality [...] tunneled HD catheter which was placed in [place]. Technique: ??The patient was positioned supine on [...] from angio recovery. Fellow: Gibson Avelar MD(pager #[phone]) Attending: Ghassan Lange, Dr. Ferrell, was present for the procedure. Jomar Franco MD IMG IR ORDERABLES documented in this encounter Visit Diagnoses Diagnosis ESRD on dialysis End stage renal disease ESRD on dialysis End stage renal disease documented in this encounter Care Teams Line Prep Cook Relationship Specialty Start Date End Date Urbano Denis DO [address] [place] [address] PCP - General 09/03/12 03/17/22 documented as of this encounter
--- OUTSIDE RECORDS SUMMARY | 2024-05-16 17:40 | XMS_ITS | Encounter Summary ---
Author Organization [facility] Joel [facility] [place] [address] Care Team Providers Care Child Health Associate Name Role Phone Urbano Denis DO Primary Care Provider [phone] Reason for Visit * Auth/Cert - Closed Specialty Diagnoses / Procedures Referred By Humberto t Referred To Contact Diagnoses ESRD ESRD Procedures AV FISTULA CREATION, DIRECT HEMODIALYSIS, ANY SITE, EG ASHWINI FISTULA UPPER EXTREMITY AV FISTULA CREATION, DIRECT HEMODIALYSIS, ANY SITE, EG ASHWINI FISTULA UPPER EXTREMITY Referral ID Status Reason Start Date Expiration Date Visits Re quested Visits Authorized [id number] Closed 1 1 Encounter Details Date Type Department Care Team (Late st Contact Info) Description 05/09/2015 2:04 PM EST Anesthesia Event [place] [address] Tal Basurto MD [facility] [place] [address] Marisela Cohen MD [facility] [place] [address] Anesthesia Record Procedure Summary Procedure Name Responsible [...] 1335; metacarpal vein right (top of hand); btpv-joi-jlujal catheter system; 18 gauge, 1 in length; [...] normal * Anesthesia Preprocedure Evaluation - Tal Bausrto MD - 05/08/2015 4:05 PM EST Pre-Anesthesia [...] consented to blood products. Plan discussed with HAND PATTERN MARKER. PAT Staff Note documented in this encounter Plan of Treatment Upcoming Encounters Date Type Department Care Team (Late st Contact Info) Description 06/22/2024 11:00 AM EST TH Visit (TeleHealth) Cardiology at [address] [phone] Byron Brown MD [facility] [place] [address] 07/14/2024 10:00 AM EST Hospital Encounter Non-Invasive [place] [address] Arrived documented as of this [...] EST documented in this encounter Care Teams Child Health Associate Relationship Specialty Start Date End Date Urbano Denis DO [address] [place] [address] PCP - General 09/03/12 03/17/22 documented as of this encounter
--- OUTSIDE RECORDS SUMMARY | 2024-05-16 17:40 | XMS_ITS | Encounter Summary ---
Author Organization [facility] [address] Care Team Providers Care Swine Extension Field Specialist Name Role Phone Urbano Denis DO [...] Expiration Date Visits Re quested Visits Authorized [id number] Closed 1 1 Encounter Details Date Type Department Care Team (Late st Contact Info) Description 05/09/2015 12:58 PM EST - 05/09/2015 3:35 PM EST Surgery [place] [phone] Jennifer Amaro MD [facility] [place] [address] AV FISTULA CREATION, DIRECT HEMODIALYSIS, ANY SITE, [...] concerning symptoms The number for questions is [phone] before 5 PM weekdays and [phone] after 5 PM and on weekends (ask for the General Surgery resident precast concrete ironworker). Activity level: Do not lift more than [...] Del Castillo MD General Surgery, PGY2 P# [id number] documented in this encounter H&P Notes * [...] Amaro MD - 05/09/2015 4:01 PM EST [facility] Operative Note Patient Name: Cody Bolden : [id number] MR#: [id number] Case Date: 05/09/2015 Surgeon: Surgeon(s) and Role: [...] EST TH Visit (TeleHealth) Cardiology at [address] [phone] Byron Brown MD [facility] [place] [address] 07/14/2024 10:00 AM EST Hospital Encounter Non-[place] [address] Arrived documented as of this [...] Glucose, POC 98 65 - 199 mg/dL [facility] Comment: Supplemental ranges: <140 mg/dL before meals <180 mg/dL all other times of the day Blood specimen (specimen) 05/09/2015 1:30 PM EST 05/09/2015 1:30 PM EST Jennifer Amaro MD POINT OF CARE TEST ORDERABLES [facility] * Potassium (05/09/2015 12:45 PM EST) Pathologist [facility] Potassium 4.2 3.5 - 5.0 mmol/L [facility] Comment: Please note: ??Patients with WBC [...] Lab Jennifer Amaro MD CHEMISTRY [facility] JENNINGS [facility] Organization Address City/State/[facility] Co ms Phone Number [facility] documented in this encounter Visit Diagnoses [...] RN) documented in this encounter Care Teams Swine Extension Field Specialist Relationship Specialty Start Date End Date Urbano Denis DO [address] [place] [address] [address] [place] [address] PCP - General 09/03/12 03/17/22 documented as of this encounter
--- OUTSIDE RECORDS SUMMARY | 2024-05-16 17:40 | XMS_ITS | Encounter Summary ---
Author Organization [facility] Joel [facility] [place] [address] Care Team Providers Care Processing Supervisor Name Role Phone Urbano Denis DO Primary Care Provider Encounter Details Date Type Department Care Team (Late st Contact Info) Description 05/23/2015 Notes Only [place] [address] Anabella Bright Social History Tobacco Use Types [...] Bright - 05/23/2015 12:38 PM EST Transplant Metal Fabricator Apprentice Note: Verification of prescription drug coverage - [employer] part D, sponsored by patient's long-term plan. Monthly medication costs will vary greatly [...] EST TH Visit (TeleHealth) Cardiology at [address] [address] Byron Brown MD [facility] [place] [address] 07/14/2024 10:00 AM EST Hospital Encounter Non-[place] [address] Arrived documented as of this encounter Visit Diagnoses Not on filedocumented in this encounter Care Teams Processing Supervisor Relationship Specialty Start Date End Date Urbano Denis DO [address] [place] [address] [address] [facility] [address] [place] [address] PCP - General 09/03/12 03/17/22 documented as of this encounter
--- OUTSIDE RECORDS SUMMARY | 2024-05-16 17:40 | XMS_ITS | Encounter Summary ---
Author Organization [facility] [place] [address] Care Team Providers Care Artificial Fly Tier Name Role Phone Adeel Urbano KIRBY Primary Care Provider [phone] Encounter Details Date Type Department Care Team (Late st Contact Info) Description 05/14/2015 Abstract [place] [address] Aurora Kessler Social History Tobacco [...] 11:00 AM EST Visit (TeleHealth) Cardiology at [address] [phone] Byron Brown MD [facility] [place] [address] 07/14/2024 10:00 AM [facility] Hospital Encounter Non[place] [address] Arrived documented as of this encounter Visit Diagnoses Not on filedocumented in this encounter Care Teams Artificial Fly Tier Relationship Specialty Start Date End Date Urbano Denis DO [address] [place] [address] PCP - General 09/03/12 03/17/22 documented as of this encounter
--- OUTSIDE RECORDS SUMMARY | 2024-05-16 17:40 | XMS_ITS | Encounter Summary ---
Author Organization [facility] Joel [facility] [address] Care Team Providers Care Atmospheric Chemist Name Role Phone AdeelUrbano boland Primary Care Provider Encounter Details Date Type Department Care Team (Late st Contact Info) Description 09/07/2015 Notes Only [place] [address] Ellen Foote RN Social History Tobacco Use [...] been formally activated on 09/07/2015 on the [facility] Kidney transplant list. The patient???s medical, psychosocial and financial review have been completed and reviewed by the [facility]???s multidisciplinary transplant committee and [...] EST TH Visit (TeleHealth) Cardiology at [address] [address] Byron Brown MD [facility] [address] 07/14/2024 10:00 AM EST Hospital Encounter Non-Invasive [place] [address] Arrived documented as of this encounter Visit Diagnoses Not on filedocumented in this encounter Care Teams Atmospheric Chemist Relationship Specialty Start Date End Date Urbano Denis DO [address] [place] [address] PCP - General 09/03/12 03/17/22 Ruchi Valles RN Nurse Clinic Transplant Surgery 07/30/15 documented as of this encounter
--- OUTSIDE RECORDS SUMMARY | 2024-05-16 17:40 | XMS_ITS | Encounter Summary ---
Author Organization [facility] [place] [address] Care Team Providers Care Service Desk Team Lead Name Role Phone Adeel Urbano KIRBY Primary Care Provider Encounter Details Date Type Department Care Team (Late st Contact Info) Description 07/12/2015 Abstract [place] [address] Aurora Kessler Social History Tobacco [...] 11:00 AM EST Visit (TeleHealth) Cardiology at [address] [phone] Byron Brown MD [facility] [address] 07/14/2024 10:00 AM [facility] Hospital Encounter Non[place] [address] Arrived documented as of this encounter Visit Diagnoses Not on filedocumented in this encounter Care Teams Service Desk Team Lead Relationship Specialty Start Date End Date Urbano Denis DO [address] [place] [address] PCP - General 09/03/12 03/17/22 documented as of this encounter
--- OUTSIDE RECORDS SUMMARY | 2024-05-16 17:40 | XMS_ITS | Encounter Summary ---
Author Organization [facility] [place] [address] Care Team Providers Care Glaze Grinder Name Role Phone AdeelUrbano Primary Care Provider + [phone] Reason for Referral * Diagnostic Test (Routine) - Closed Specialty Diagnoses / Procedures Referred By Humberto flor Referred To Contact Diagnoses ESRD (end stage renal disease) Procedures Echo pharm stress test (DSE) Shin Sebastian MD [facility] [address] [facility] [place] [address] Referral ID Status Reason Start Date Expiration Date V isits Requested Visits Authorized [id number] Closed Specialty Service Requested 05/29/2015 05/28/2016 1 1 Reason for Visit * Consultation (Routine) - Closed Specialty Diagnoses / Procedures Referred By Contpaula flor Referred To Contact Cardiology Procedures Patient is undergoing considration for renal transplant. Please see scanned documents (Stress test, Cath etc.). Patient needs formal evaluation with Dr. Brown or delegate for clearance and further testing as determined. Byron Brown MD [facility] [place] [place] [address] Referral ID Status Reason Start Date Expiration Date Visits Re quested Visits Authorized [id number] Closed 05/14/2015 05/13/2016 1 1 Encounter Details Date Type Department Care Team (Latest Contact Info) Description 05/29/2015 10:00 AM EST Office Visit Cardiology at [address] [place] [address] Shin Sebastian MD [facility] [place] [address] ESRD (end stage renal disease); Pre-operative cardiovascular [...] EST TH Visit (TeleHealth) Cardiology at [address] [address] Byron Brown MD [facility] [place] [address] 07/14/2024 10:00 AM EST Hospital Encounter Non-[place] [address] Arrived documented as of this [...] P ? (Age): 1950(64y) Med Rec#: ? [id number] ?Sex: ?M ? Site Loc: ? [facility] ?Ht / Wt: ??177(cm)/102(kg) Pt. Loc: ?Echo Lab ?BSA: ?2.19 Study Date: ?? 06/14/2015 ?Pt. Type: Tape: ? Referring: Shin Sebastian ([id number]) Referring: UNKNOWN Reading: Joseph Zuniga ([id number]) Crane Hooker: Chiquis Kelly Nurse: Meka Kim Diagnosis: *ICD-10-PCS End stage renal disease (N18.6) CPT Codes: *Stress Echo (12266) *Color Doppler (88249) *Doppler LTD (47517) *ECG Interpretation (67012) *Definity (99112PR) Stage ? BP ?HR ? Rest ?157/82 [...] E-wave Vmax ?0.5 ?m/sec ? MV deceleration [id number] ?msec ? MV A-wave Vmax ?0.6 ?m/sec [...] ?Normal ?Normal ? Mid-Inferoseptal ?Normal ?Normal ? [place]-Septal ? Normal ?Normal ? [place]-Anterior ? Normal ?Normal ? [place]-Lateral ?Normal ?Normal ? [place]-Inferior ? Normal ?Normal ? [place]-Tip ?Normal ?Normal ? This report has been electronically signed by: Joseph Zuniga M.D. ? 06/14/2015 12:01:18 Images reviewed and interpretation verified [facility] Cardiac Ultrasound Laboratory Procedure Note Joseph Zuniga MD - 06/14/2015 Procedure: Stress Echocardiogram Patient: MABLE Gomez DOB(Age): 1950(64y) Med Rec#: [id number] Sex: M Site Loc: [facility] Ht / Wt: 177(cm)/102(kg) Pt. Loc: Echo Lab BSA: 2.19 Study Date: 06/14/2015 Pt. Type: Tape: Referring: Shin Sebastian ([id number]) Referring: UNKNOWN Reading: Joseph Zuniga ([id number]) Crane Hooker: Chiquis Kelly Nurse: Meka Kim Diagnosis: *ICD-10-PCS End stage renal disease (N18.6) CPT Codes: *Stress Echo (82219) *Color Doppler (06220) *Doppler LTD (50962) *ECG Interpretation (63890) *Definity (86896QI) Stage BP HR Rest 157/82 60 Low [...] MV E-wave Vmax 0.5 m/sec MV deceleration [id number] msec MV A-wave Vmax 0.6 m/sec MV [...] Normal Mid-Inferior Normal Normal Mid-Inferoseptal Normal Normal [place]-Septal Normal Normal [place]-Anterior Normal Normal [place]-Lateral Normal Normal [place]-Inferior Normal Normal [place]-Tip Normal Normal This report has been electronically signed by: Joseph Zuniga M.D. 06/14/2015 12:01:18 Images reviewed and interpretation verified [facility] Cardiac Ultrasound Laboratory Shin Sebastian MD ECHO ORDERABLES * EKG 12 Lead (05/29/2015 10:24 AM EST) Ventricular rate 61 BPM MUSE SYSTEM Atrial Rate 61 BPM MUSE SYSTEM P-R Interval 192 ms MUSE SYSTEM QRS Duration 106 ms MUSE SYSTEM Q-T Interval 428 ms MUSE SYSTEM QTC Calculated (Bezet) 430 ms MUSE SYSTEM Calculated P [place] -19 degrees MUSE SYSTEM Calculated R [place] -54 degrees MUSE SYSTEM Calculated T [place] -10 degrees MUSE SYSTEM INTERPRETATION Normal sinus [...] disease documented in this encounter Care Teams Glaze Grinder Relationship Specialty Start Date End Date Urbano Denis DO [address] [place] [address] PCP - General 09/03/12 03/17/22 documented as of this encounter
--- OUTSIDE RECORDS SUMMARY | 2024-05-16 17:40 | XMS_ITS | Encounter Summary ---
Author Organization [facility] [place] [address] Care Team Providers Care Administration Clerk Name Role Phone Urbano Denis DO Primary Care Provider Reason for Referral * Diagnostic Test (Routine) - Closed Specialty Diagnoses / Procedures Referred By Humberto flor Referred To Contact Radiology Diagnoses ESRD (end stage renal disease) Procedures IR a/v fistula evaluations Jomar Franco MD [facility] [place] [address] [place] [address] Referral ID Status Reason Start Date Expiration Date V isits Requested Visits Authorized [id number] Closed Specialty Service Requested 07/30/2015 07/29/2016 1 1 Encounter Details Date Type Department Care Team (Late st Contact Info) Description 07/30/2015 Orders Only [place]ph[place] [address] Jomar Franco MD [facility] [place] [address] ESRD (end stage renal disease) [...] EST TH Visit (TeleHealth) Cardiology at [address] [phone] Byron Brown MD [facility] [address] 07/14/2024 10:00 AM EST Hospital Encounter Non-[place]vasive [place] [phone] Arrived documented as of this encounter Results [...] by US. Fellow: Gibson Avelar MD (pager #[phone]) Attending: Jade Nelson MD ?? (I was present and scrubbed for the entire procedure) Jomar Franco MD IMG IR ORDERABLES documented in this encounter Visit Diagnoses Diagnosis ESRD (end stage renal disease) End stage renal disease ESRD (end stage renal disease) End stage renal disease documented in this encounter Care Teams Administration Clerk Relationship Specialty Start Date End Date Urbano Denis DO [address] [place] [address] [address] [facility] [address] [place] [address] PCP - General 09/03/12 03/17/22 Ruchi Valles RN Nurse Clinic Transplant Surgery 07/30/15 documented as of this encounter
--- OUTSIDE RECORDS SUMMARY | 2024-05-16 17:40 | XMS_ITS | Encounter Summary ---
Author Organization [facility] [place] [address] Care Team Providers Care Company Manager Name Role Phone Urbano Denis DO Primary Care Provider Encounter Details Date Type Department Care Team (Late st Contact Info) Description 07/17/2015 4:00 PM EST Office Visit Solid [place] [address] Larry Larkin MD [facility] [place] [address] ESRD (end stage renal disease) Social History [...] in proceeding withtransplantation. 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 Problem [...] MD at [facility] MAIN OR FAMILY HISTORY: No family [...] AM EST Visit (TeleHealth) Cardiology at [address] [address] Byron Brown MD [facility] [place] [place] [address] 07/14/2024 10:00 AM EST Hospital Encounter Non-Invasive [facility] [address] Arrived documented as of this encounter Visit Diagnoses Diagnosis ESRD (end stage renal disease) End stage renal disease documented in this encounter Care Teams Company Manager Relationship Specialty Start Date End Date Urbano Denis DO [address] [place] [address] PCP - General 09/03/12 03/17/22 documented as of this encounter
--- OUTSIDE RECORDS SUMMARY | 2024-05-16 17:40 | XMS_ITS | Encounter Summary ---
Author Organization [facility] [address] Care Team Providers Care Yarn Inspector Name Role Phone Albania Nunez DO Primary Care Provider [phone] Reason for Visit * Auth/Cert Specialty Diagnoses / Procedures Referred By Humberto flor Referred To Contact Diagnoses RENAL FAILURE Kidney transplant. UNOS #[id number] Procedures PRO TRANSPLANTATION OF KIDNEY PRO TRANSPLANT, PREP CADAVER RENAL GRAFT @KIDNEY TRANSPLANT, WITHOUT RECIPIENT NEPHRECTOMY @PREPARATION CADAVERIC RENAL ALLOGRAFT Referral ID Status Reason Start Date Expiration Date Visits Re quested Visits Authorized [id number] 1 1 Encounter Details Date Type Department Care Team (Late st Contact Info) Description 09/16/2015 9:00 AM EDT - 09/16/2015 1:01 PM EDT Surgery [place] [address] Larry Larkin MD [facility] [place] [address] @KIDNEY TRANSPLANT, WITHOUT RECIPIENT NEPHRECTOMY (WRVU 39.88) [...] Tubiello's stay because [facility], and had known [...] Center 09/25/2015 9:00 AM TRANSPLANT, COORDINATOR Heri [address] [place] [facility] 09/25/2015 10:30 AM Larry Larkin MD [facility] [address] [facility] Outpatient Services/Studies: OPAT: Order / [...] practitioner, clinical nurse specialist or physician's assistant business manager who is working directly with them, had a face to face encounter that meets the physician face to face encounter requirements with this patient on 09/19/2015 The encounter with the patient was in whole, or in part, for the following medical condition, whichis the primary reason for home health care services: [ ESRD, on HD at [facility] HD Thu/Thu/Thursday since January 2015. [...] [facility] Transplant Clinic [phone] or from this patient's PCP: ALBANIA NUNEZ DO [address] [place] [address] All VNA agencies which cover the area of patient's residence have been reviewed, either verbally greg writing, and patient/family have chosen the indicated home health care agency for home services. [facility] PHONE: [phone] FAX: [phone] RN visits to begin on day after [...] Response Notes Agency name and contact information [facility] Patient location post discharge home What services are requested Registered Nurse Responsible MD post discharge contact info [facility] Dr. Larry Larkin and PCP Albania Nunez Referral for Outpatient Antibiotics Question Response Notes Vendor / contact information [facility] Patient location post discharge home Service requested [...] may be used if needed and are wkfd-ngs-mbwoitq (OTC) medications available at most local pharmacies. Prunes or prune juice, taken daily, can also be helpful for constipation treatment or prevention and are available at most [facility]. Driving Restrictions*: - No driving if you [...] Medicine sheet provided to you by the Truck Shop Supervisor to guide your daily doses. If you [...] with the Transplant Surgery Outpatient Clinic - [id number] in 2-4 days. You will recieve a letter in the mail and/or a phone call with information about this appointment. Please call [phone] (clinic number for appointments) to confirm date [...] blood work. Your surgeon may not be Contact Finger Assembler, especially during the night or on weekends, so be ready to describe yourself and your surgery when you call. General Instructions Office of Care Management/Otolaryngology Nurse(CM) Home IV Antibiotic Therapy Referral Note. Report received from Dr. Brian Grande that patient will require continued home IV antibiotic therapyafter discharge from the hospital. Met with patient/family to discuss vendor and visiting nurse choices for home IV antibiotic therapy. Reviewed Home Infusion Vendors and Home Health Agencies that serve patient???s address and accept patient???s insurance. Home Health Agency: Patient requested referral to [facility]. PHONE: [phone] FAX: [phone] Referrals sent via edischarge. Home Infusion Vendor: Patient requested referral to [place], [place] or Referrals sent via edischarge. Diabetic Status: Patient is a diabetic. IV access: Type of line: Tunneled CVC Date placed: 09/19/15 CM signature Ruchi Tang RN Pager# [phone] [facility] Vascular/Interventional Radiology DISCHARGE INSTRUCTIONS FOR TUNNELED [...] is during regular working hours, please call [phone]. If it is after 5 pm or a weekend or holiday, call [phone] and ask for the Cell Tuber Machine chief telephone operator for Interventional Radiology. You have received [...] 09/19/2015 4:12 PM EDT Office of Care Management/Otolaryngology Nurse(CM) Home IV Antibiotic Therapy Referral Note. Report received from Dr. Brian Grande that patient will require continued home IV antibiotic therapyafter discharge from the hospital. Met with patient/family to discuss vendor and visiting nurse choices for home IV antibiotic therapy. Reviewed Home Infusion Vendors and Home Health Agencies that serve patient???s address and accept patient???s insurance. Home Health Agency: Patient requested referral to [facility] PHONE: [phone] FAX: [phone] Referrals sent via edischarge. Home Infusion Vendor: Patient requested referral to [place], [place] or Referrals sent via edischarge. Diabetic Status: Patient is a diabetic. IV access: Type of line: Tunneled CVC Date placed: 09/19/15 CM signature Ruchi Tang RN Pager# [phone] [facility] Vascular/Interventional Radiology DISCHARGE INSTRUCTIONS FOR TUNNELED [...] is during regular working hours, please call [phone]. If it is after 5 pm or a weekend or holiday, call [phone] and ask for the Cell Tuber Machine chief telephone operator for Interventional Radiology. You have received [...] may be used if needed and are fjdq-bvy-xwrlimh (OTC) medications available at most local pharmacies. Prunes or prune juice, taken daily, can also be helpful for constipation treatment or prevention and are available at most [facility]. Driving Restrictions*: - No driving if you [...] Medicine sheet provided to you by the Truck Shop Supervisor to guide your daily doses. If you [...] with the Transplant Surgery Outpatient Clinic - [id number] in 2-4 days. You will recieve a letter in the mail and/or a phone call with information about this appointment. Please call [phone] (clinic number for appointments) to confirm date [...] blood work. Your surgeon may not be Contact Finger Assembler, especially during the night or on weekends, [...] Que Amaro MD at [facility] OR? Pro transplantation of kidney?? N/A?? 09/16/2015? @KIDNEY TRANSPLANT, WITHOUT RECIPIENT NEPHRECTOMY performed by Larry Larkin MD at [facility] OR? Pro transplant, prep cadaver renal graft?? N/A?? 09/16/2015? @PREPARATION CADAVERIC RENAL ALLOGRAFT performed by Larry Larkin MD at [facility] OR? N/A?? 09/16/2015? ORGAN ACQUISITION RENAL, CADAVERIC performed by Larry Larkin MD at [facility] OR?? Social History: Patient lives with spouse in [place], [place].?? He reports he & not working [...] minutes Total timed interventions: 23 minutes Pager: [phone] Nicole Soares Physical Therapy Rehabilitation Department * [facility] Transplant [phone] (Pager: [phone]) * Kyle Huizar APRN - 09/20/2015 12:47 [...] single lumen CVC was placed 09/19/15 for nursing home antibiotics. The CVC has not been used, according to nursing. Possible discharge home today. Plan: We will sign off, but would be happy to see patient again for any issues. KYLE HUIZAR APRN 09/20/2015 * Herlinda Bell, RD - 09/20/2015 12:02 PM EDT TRANSPLANT NUTRITION Post-Transplant Discharge Diet Instruction This designer/writer met with Ethel Bolden a 65 year [...] requirements decrease to ~85gms per day. This designer/writer stressed importance of adequate hydration and we [...] [facility] Solid [facility] Transplant [phone] (Pager: [phone]) * Therese Carpio RN - 09/19/2015 2:26 PM EDT 1410 To procedure room 2 via stretcher. Onto table in supine position. All monitors, O2, safety strap in place. Med's per protocol. * Herlinda Bell RD - 09/19/2015 11:11 AM EDT TRANSPLANT NUTRITION Post-Transplant Nutrition Visit This designer/writer met with Ethel Toth Helderneri a 65 [...] decrease to ~82gms per day. Summary/Plan: This designer/writer will initiate diet teaching tomorrow with patient and . Follow up with patient after discharge in outpatient solid organ transplant clinic. Remain available for questions/concerns. * Ruchi Tang, RN - 09/19/2015 10:00 AM EDT Care Management/ Pager# [phone]/ Transfer note and Discharge planning S: Getting everything organized for me to be able to go home tomorrow sounds perfect. I was doing HD at [facility] on Thursday/Thursday/Thursday since January 2015. I won't be needing to go there anymore. Getting the referrals in to [facility] and [facility] is a good plan. Thanks for your help. O: Met with patient this morning. [facility] Patient is POD# 3 [...] OOB ambulating with minimal assistance. Message to Sales Estimator about [facility] (M/W/F) prior to admission. Message to Sales Estimator for referral to [facility] and to [facility]. Call to Anthony of [facility] to discuss referral for CVC care and IV antibiotic. Care Management note for MD Discharge Summary (with VNA and IV antibiotic Vendor information) completed and pended by designer/writer. Discussion with estimator project manager Tamela Mckeon. A/P: Discharge planning underway for likely patient discharge on 09/19. At time of patient's discharge, staff weapons officer to call report to VNRay and MD Discharge Summary . * Ruchi Tang RN - 09/19/2015 9:47 AM EDT Office of Care Management/Otolaryngology Nurse(CM) Home IV Antibiotic Therapy Referral Note. Report received from Dr. Brian Grande that patient will require continued home IV antibiotic therapyafter discharge from the hospital. Met with patient/family to discuss vendor and visiting nurse choices for home IV antibiotic therapy. Reviewed Home Infusion Vendors and Home Health Agencies that serve patient???s address and accept patient???s insurance. Home Health Agency: Patient requested referral to [facility] PHONE: [phone] FAX: [phone] Referrals sent via edischarge. Home Infusion Vendor: Patient requested referral to [place], [place] or Referrals sent via edischarge. Diabetic Status: Patient is a diabetic. IV access: Type of line: Tunneled CVC Date placed: 09/19/15 CM signature Ruchi Tang RN Pager# [phone] * Que Amaro MD - 09/19/2015 9:03 [...] on 07/31/2015 for an AV fistulagram without COMMERCIAL OCEAN CLAMMER. He has had prior R IJ TDC [...] NEPHRECTOMY performed by Larry Larkin MD at [facility] OR ??? Pro transplant, prep cadaver renal graft N/A 09/16/2015 @PREPARATION CADAVERIC RENAL ALLOGRAFT performed by Larry Larkin MD at [facility] OR ??? N/A 09/16/2015 ORGAN ACQUISITION RENAL, CADAVERIC performed by Larry Larkin MD at [facility] OR No Known Allergies Scheduled [...] Amaro on 05.09.15. Patient last seen in [place] 07/31/2015 for an AV fistulagram without COMMERCIAL OCEAN CLAMMER. He has had prior R IJ TDC [...] of : 1950 AGE 65 y.o. Address: [address] [place] [phone] (home) [phone] (work) Mobile: Telephone Information: Referring Provider: Albania [...] NEPHRECTOMY performed by Larry Larkin MD at [facility] OR ??? Pro transplant, prep cadaver renal graft N/A 09/16/2015 @PREPARATION CADAVERIC RENAL ALLOGRAFT performed by Larry Larkin MD at [facility] OR ??? N/A 09/16/2015 ORGAN ACQUISITION RENAL, CADAVERIC performed by Larry Larkin MD at [facility] OR Date/Procedure? Med's given/comments 01/08/2015: [...] Take 1 capsule by mouth daily. 09/17/15Que chvais MD valGANciclovir (VALCYTE) 450 mg Tablet Take [...] informed this patient that they require a transit bus driver to be present and in the building to drive them home after this procedure. In the absence of a transit bus driver, IR will not be able to [...] NEPHRECTOMY performed by Larry Larkin MD at [facility] OR ??? Pro transplant, prep cadaver renal graft N/A 09/16/2015 @PREPARATION CADAVERIC RENAL ALLOGRAFT performed by Larry Larkin MD at [facility] OR ??? N/A 09/16/2015 ORGAN ACQUISITION RENAL, CADAVERIC performed by Larry Larkin MD at [facility] OR Social History: Patient lives with spouse in [place], [place]. He reports he & not working [...] 20 minutes PARKER GILL, PT 09/18/2015 Pager: [phone] Physical Therapy Rehabilitation Department * Pauline Miles RN - 09/18/2015 4:18 PM EDT 1615: [facility]. Skyla initiated. Call robles within reach. VS stable. [facility] for full [facility]. * Mundo Barry RN - 09/18/2015 1:35 PM EDT Nurse Otolaryngology Nurse Initial Assessment Mundo Barry RN, pager [phone] Office of Care Management 09/18/2015 Ethel Bolden [id number] Date of : 1950 Admission Diagnosis: Renal failure [N19]; per adm note: PMH significant for HCV with hemodialysis dependent ESRD 2/2 HTN who presents today for [facility] high risk donor kidney transplantation. [...] History Narrative None on file Lives in [place], [place] in own home w/ spouse Mundo and 26 y.o. Son. Code Status: Full. Advance Directives:none in [facility]. Admission Status: written and signed by attending as IPI. Insurance: Medicare A,B and D through [employer] and BC/BS. Pharmacy: [address] Baseline Functional Status: self reports no [...] with changing needs. Mundo Barry RN, MSN Otolaryngology NurseMeter Maker of Care Management Pager [phone] Phone: [phone] * Brian Grande MD - 09/18/2015 1:00 [...] BECK MD Fellow, Infectious Disease 09/18/2015 Pager [phone] Addendum Asked to comment on the possibility [...] the ceftriaxone. Selena Beck ID fellow Pager [phone] I agree with the recommendations of Dr. Beck after discussion with her and review of her note.I did not examine the patient myself today. Brian Grande MD * Tal Eagle MD - 09/18/2015 9:54 AM EDT TRANSPLANT NEPHROLOGY CONSULT PROGRESS NOTE REASON FOR CONSULTATION: medical management of transplant kidney referred by Dr. Larkin Ethel Bolden [id number] 1950 Transplant ID: Date: 09/18/2015 Patient: Ethel Bolden Transplant Date: 09/16/2015 Organ(s) donor Cheesh-Na organ diagnosis: Renal biopsy showing diabetic and [...] kidney. Pt was getting HD MWF at [facility]. He was referred by Dr. Nunez for pre transplant evaluation for his kidney and was seen by Dr Eagle on 04/19/2015. He apparently had previouslybeen evaluated for transplant at the [facility]. He was told he will [...] Shagufta Villasenor MD Nephrology fellow Pager # [phone] I reviewed all of the above findings [...] Urine picked up throughout shift. Weaning from SLIP BOX CHANGER. Report given to next shift. * Samia [...] [facility] Solid [facility] Transplant [phone] (Pager: [phone]) * Tal Eagle MD - 09/17/2015 10:15 [...] reflect mine. * Jesus Bradley [facility] - 09/16/2015 5:40 PM EDT Clinical Pharmacist Note-Vanc Ethel Bolden [id number] 1950 Ethel Bolden is a 65 y.o. [...] have. Alternately, during off-hours you may call [phone] to contact a pharmacist. JESUS BRADLEY RPH Pager [phone] * Brenda Masterson RN - 09/16/2015 11:24 [...] prior to OR. MD Saravia at bedside, Psychiatric Cns, Ninoska GERBER will return for consent. Will continue to monitor. documented in this encounter H&P Notes * Marcus Saravia MD - 09/16/2015 9:57 AM EDT [facility] Department of Transplant Surgery H&P [...] at [facility] OR ALL: No Known [...] ESRD 2/2 HTN who presents today for [facility] high risk donor kidney transplantation. Stat CBC, [...] when outof bed;room near unit station 09/19/15 9063 Musculoskeletal Interventions Activity/Level of Assistance up in [...] Outcome: Ongoing (Interventions Implemented as Appropriate) 09/19/15 2377 Plan of Care Review Plan of Care [...] completed during [facility]x 1800 [facility] PLAN MOVING FORWARD: Patient +Flatus awaiting [...] small amount of serousanginous output. Inscision dry/intact PATTERN DEVELOPER. K this am is 5.2. Pt received prn oxycodone [id number]. Pt was OOB walked 100ft w/o any [...] referred by Dr. Larkin Ethel Gomez Keniamarialuisaneri [id number] 1950 Transplant ID: Date: 09/17/2015 Patient: Ethel Bolden Transplant Date: 09/16/2015 Organ(s) donor Cheesh-Na organ diagnosis: Renal biopsy showing diabetic and [...] kidney. Pt was getting HD MWF at [facility]. He was referred by Dr. Nunez for pre transplant evaluation for his kidney and was seen by Dr Eagle on 04/19/2015. He apparently had previouslybeen evaluated for transplant at the [facility]. He was told he will [...] NEPHRECTOMY performed by Larry Larkin MD at [facility] OR ??? Pro transplant, prep cadaver renal graft N/A 09/16/2015 @PREPARATION CADAVERIC RENAL ALLOGRAFT performed by Larry Larkin MD at [facility] OR FH: Father had [...] Ceftraixone ganciclovir Seen and Discussed w/ Dr. Shaugfta Villasenor MD Nephrology fellow Pager # [phone] I reviewed all of the above findings and assessment of Dr. Villasenor, examined the patient and formulated the recommendations which accurately reflect mine. 80 Min., >50%(40 min) in direct face to face clinical counselor. o Discussion with the patient and/or [...] NEPHRECTOMY performed by Larry Larkin MD at [facility] OR ??? Pro transplant, prep cadaver renal graft N/A 09/16/2015 @PREPARATION CADAVERIC RENAL ALLOGRAFT performed by Larry Larkin MD at [facility] OR Social History and [...] continue to follow patient. Page us at [phone] with any further questions or concerns. Recommendations are above and were discussed with the primary treating team. ID will sign off. Please page if further consultation required. This patient was seen and discussed with ID attending Dr. Harjinder BECK MD Fellow, Infectious Disease 09/17/2015 Pager [phone] I interviewed, examined and discussed the patient [...] Operative Note Patient Name: Ethel Bolden : [id number] MR#: [id number] Case Date: 09/16/2015 Surgeon: Surgeon(s) and Role: * Larry Larkin MD - Primary * Marcus Saravia MD Preoperative diagnosis: Kidney transplant. UNOS #[id number] Postoperative diagnosis: Kidney transplant. UNOS #[id number] Procedure(s): @KIDNEY TRANSPLANT, WITHOUT RECIPIENT NEPHRECTOMY @PREPARATION [...] to adjacent structures, lymphocoele, urtereral leak, stroke, PR, and . 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 This was a [facility] high risk donor. Procedure and Findings: Following [...] NEPHRECTOMY performed by Larry Larkin MD at [facility] OR ??? Pro transplant, prep cadaver renal graft N/A 09/16/2015 @PREPARATION CADAVERIC RENAL ALLOGRAFT performed by Larry Larkin MD at [facility] OR Social History: Patient lives with spouse in [place], [place]. He reports he & not working [...] Pt seen for evaluation today. Pain: using SLIP BOX CHANGER but no c/o pain. Vital Signs: Sp02: [...] and wanting to sit to eat breakfast ZJ=132/64 and RN notified. Standing: he preferred to [...] 0 minutes ANDREI GILL PT 09/17/2015 Pager: [phone] Physical Therapy Rehabilitation Department * Plan of [...] Operative Note Patient Name: Ethel Bolden : [id number] MR#: [id number] Case Date: 09/16/2015 Surgeon: Surgeon(s) and Role: * Larry Larkin MD - Primary * Marcus Saravia MD Preoperative diagnosis: Kidney transplant. UNOS #[id number] Postoperative diagnosis: Kidney transplant. UNOS #[id number] Procedure(s): @KIDNEY TRANSPLANT, WITHOUT RECIPIENT NEPHRECTOMY @PREPARATION [...] EST TH Visit (TeleHealth) Cardiology at [address] [phone] Byron Brown MD [facility] [place] [address] 07/14/2024 10:00 AM EST Hospital Encounter Non-Invasive [place] [phone] Arrived Scheduled Referrals Name Type Priority Associated Diagnoses Order Schedule OPAT: Order / Recommendation for Post Discharge IV Antibiotic Management Outpatient Referral Routine Renal transplant recipient Ordered: 09/18/2015 documented as of this encounter Procedures Procedure Name Priority Date/Time Associated Diagnosis Comments NEWS ANCHOR SCAN 09/21/2015 12:00 AM EDT POCT GLUCOSE [...] 09/16/2015 11:41 AM EDT Kidney transplant. UNOS #[id number] @PREPARATION CADAVERIC RENAL ALLOGRAFT (WRVU 9.24) 09/16/2015 11:41 AM EDT Kidney transplant. UNOS #[id number] @KIDNEY TRANSPLANT, WITHOUT RECIPIENT NEPHRECTOMY (WRVU 39.88) 09/16/2015 11:41 AM EDT Kidney transplant. UNOS #[id number] CMV ANTIBODY, IGG Routine 09/16/2015 10: 28 [...] in this encounter Results * SCAN DOC: NEWS ANCHOR (09/21/2015 12:00 AM EDT) Anatomical Region Laterality Modality Other Scanning Provider MEDIA MGR SCAN EXT O RDR/RSLT * POCT Glucose (09/20/2015 11:23 AM EDT) Glucose, POC 144 65 - 199 mg/dL [facility] Comment: Supplemental ranges: <140 mg/dL before meals <180 mg/dL all other times of the day Blood specimen (specimen) 09/20/2015 11:23 AM EDT 09/20/2015 11:23 AM EDT Larry Larkin MD POINT OF CARE TEST O RDERABLES Performing Organization Address City/[facility]/ZIP Co de Phone Number [facility] [place] [address] * Tacrolimus level (09/20/2015 8:04 AM EDT) Tacrolimus <3.0 ng/mL [facility] Comment:Trough therapeutic: 5-15 ng/mL Blood specimen (specimen) 09/20/2015 8:04 AM EDT 09/20/2015 10:58 AM EDT Narrative Resulting Agency Comment Spec In Lab Larry Larkin MD CHEMISTRY ORDERABLES Performing Organization Address City/[facility]/ZIP Co de Phone Number [facility] [place] [address] * POCT Glucose (09/20/2015 7:10 AM EDT) Glucose, POC 123 65 - 199 mg/dL [facility] Comment: Supplemental ranges: <140 mg/dL before meals <180 mg/dL all other times of the day Blood specimen (specimen) 09/20/2015 7:10 AM EDT 09/20/2015 7:10 AM EDT Larry Larkin MD POINT OF CARE TEST O RDERABLES [facility] [place] [address] * (ABNORMAL) Differential, Automated (09/20/2015 4:58 AM EDT) Neutrophil % 80.6 % [facility] Neutrophil Absolute 7.65(H) 1.50 - 6.30 x10(3)/mc L [facility] Lymph % 7.2 % [facility] Lymphocytes Abs 0.7(L) 1.0 - 3.6 x10(3)/[facility] Monocyte % 11.9 % [facility] Monocyte Abs 1.1(H) 0.2 - 1.0 x10(3)/[facility] Eos % 0.0 % [facility] Eosinophils Abs 0.0 0.0 - 0.5 x10(3)/[facility] Basophil % 0.0 % [facility] Baso Absolute 0.0 0.0 - 0.2 x10(3)/[facility] Immature Gran % 0.30 % [facility] Comment: [...] [facility] Blood specimen (specimen) 09/20/2015 4:58 AM EDT 09/20/2015 5:17 AM EDT Narrative Resulting Agency Comment Spec In Lab Larry Larkin MD HEMATOLOGY ORDERABLE S Performing Organization Address City/[facility]/ZIP Co de Phone Number [facility] [place] [address] * (ABNORMAL) Hemogram (09/20/2015 4:58 AM EDT) [facility] White Blood Cell 9.5 4.0 - 10.0 x10(3)/mc L [facility] Red Blood Cell 2.95(L) 4.63 - 6.08 x10(6)/mc L [facility] Hemoglobin 9.4(L) 13.7 - 17.5 gm/dL [facility] Hematocrit 27.5(L) 40.0 - 51.0 % [facility] Mean Cell Volume 93.2(H) 79.0 - 92.0 fL [facility] Mean Cell Hemoglobin 31.9 25.6 - 32.2 pg [facility] Mean Cell Hemoglobin Concentration 34.2 32.0 - 36.5 gm/dL [facility] Platelet 234 145 - 370 x10(3)/mc L [facility] RDW Standard Deviation 50.1(H) 35.0 - 46.0 fL [facility] RDW coefficient of variation 14.6(H) 10.9 - 14.4 % [facility] Mean Platelet Volume 9.4 9.0 - 12.0 fL [facility] Blood specimen (specimen) 09/20/2015 4:58 AM EDT 09/20/2015 5:17 AM EDT Narrative Resulting Agency Comment Spec In Lab Larry Larkin MD HEMATOLOGY ORDERABLE S [facility] [place] [address] * (ABNORMAL) Hepatic Function Panel (09/20/2015 4:58 AM EDT) [facility] Protein, Total 6.0(L) 6.1 - 8.0 gm/dL [facility] Albumin 3.1(L) 3.2 - 5.2 gm/dL [facility] Aspartate Aminotransferase 19 0 - 39 unit/L [facility] Alanine Aminotransferase 17 0 - 55 unit/L [facility] Alkaline Phosphatase 43 40 - 120 unit/L [facility] Bilirubin, Total 0.5 0.2 - 1.3 mg/dL [facility] Bilirubin, Direct 0.1 0.0 - 0.3 mg/dL [facility] Blood specimen (specimen) 09/20/2015 4:58 AM EDT 09/20/2015 5:17 AM EDT Narrative Resulting Agency Comment Spec In Lab Larry Larkin MD CHEMISTRY ORDERABLES Performing Organization Address [facility]/ZIP Co de Phone Number [facility] [place] [address] * Phosphorus (09/20/2015 4:58 AM EDT) Phosphorus 3.0 2.5 - 4.5 mg/dL [facility] Blood specimen (specimen) 09/20/2015 4:58 AM EDT 09/20/2015 5:17 AM EDT Narrative Resulting Agency Comment Spec In Lab Larry Larkin MD CHEMISTRY ORDERABLES Performing Organization Address [facility] Co de Phone Number [facility] [place] [address] * Magnesium (09/20/2015 4:58 AM EDT) Magnesium 0.89 0.69 - 1.07 mmol/L [facility] Blood specimen (specimen) 09/20/2015 4:58 AM EDT 09/20/2015 5:17 AM EDT Narrative Resulting Agency Comment Spec In Lab Larry Larkin MD CHEMISTRY ORDERABLES Performing Organization Address [facility] Co de Phone Number [facility] [place] [address] * (ABNORMAL) Basic Metabolic Panel (non-fasting) (09/20/2015 4:58 AM EDT) Glucose 130 65 - 199 mg/dL [facility] Comment:Diabetes: >=200 mg/d L plus symptoms Blood Urea Nitrogen 60(H) 10 - 20 mg/dL [facility] Creatinine 2.30(H) 0.80 - 1.50 mg/dL [facility] Comment: result rechecked-monty Please note that the pediatric reference intervals supplied above were not validated at [facility]. Results from pediatric patients should be interpreted in conjunction to the patient's age, height and muscle mass. Sodium 144 135 - 145 mmol/L [facility] Potassium 5.1(H) 3.5 - 5.0 mmol/L [facility] Est Glomerular Filtration Rate 28(L) >=60 [facility] Comment: This estimated [...] the following links into your internet browser. [email or web address] Blood specimen (specimen) 09/20/2015 4:58 AM EDT 09/20/2015 5:17 AM EDT Narrative Resulting Agency Comment Spec In Lab Larry Larkin MD CHEMISTRY ORDERABLES Performing Organization Address [facility] Co de Phone Number [facility] [place] [address] * POCT Glucose (09/19/2015 9:00 PM EDT) Glucose, POC 183 65 - 199 mg/dL [facility] Comment: Supplemental ranges: <140 mg/dL before meals <180 mg/dL all other times of the day Blood specimen (specimen) 09/19/2015 9:00 PM EDT 09/19/2015 9:00 PM EDT Larry Larkin MD POINT OF CARE TEST O RDERABLES Performing Organization Address [facility] Co de Phone Number [facility] [place] [address] * POCT Glucose (09/19/2015 4:19 PM EDT) Glucose, POC 151 65 - 199 mg/dL [facility] Comment: Supplemental ranges: <140 mg/dL before meals <180 mg/dL all other times of the day Blood specimen (specimen) 09/19/2015 4:19 PM EDT 09/19/2015 4:19 PM EDT Larry Larkin MD POINT OF CARE TEST O TED Performing Organization Address [facility] Co de Phone Number [facility] [place] [address] * IR central venous access (09/19/2015 3:38 [...] Glucose, POC 122 65 - 199 mg/dL [facility] Comment: Supplemental ranges: <140 mg/dL before meals <180 mg/dL all other times of the day Blood specimen (specimen) 09/19/2015 11:56 AM EDT 09/19/2015 11:56 AM EDT Larry Larkin MD POINT OF CARE TEST O RDERABLES [facility] [place] [address] * POCT Glucose (09/19/2015 7:06 AM EDT) Pathologist [facility] Glucose, POC 169 65 - 199 mg/dL [facility] Comment: Supplemental ranges: <140 mg/dL before meals <180 mg/dL all other times of the day Blood specimen (specimen) 09/19/2015 7:06 AM EDT 09/19/2015 7:06 AM EDT Larry Larkin MD POINT OF CARE TEST O TED Performing Organization Address City/[facility]/ZIP Co de Phone Number [facility] [place] [address] * (ABNORMAL) Differential, Automated (09/19/2015 6:14 AM EDT) [facility] Neutrophil % 87.3 % [facility] Neutrophil Absolute 10.11(H) 1.50 - 6.30 x10(3)/mc L [facility] Lymph % 3.0 % [facility] Lymphocytes Abs 0.4(L) 1.0 - 3.6 x10(3)/mc L [facility] Monocyte % 9.5 % [facility] Monocyte Abs 1.1(H) 0.2 - 1.0 x10(3)/mc L [facility] Eos % 0.0 % [facility] Eosinophils Abs 0.0 0.0 - 0.5 x10(3)/mc L [facility] Basophil % 0.0 % [facility] Baso Absolute 0.0 0.0 - 0.2 x10(3)/mc L [facility] Immature Gran % 0.20 % [facility] Comment: Immature granulocytes(IG's)percentage and absolute count will include metamyelocytes, myelocytes, and promyelocytes. Blood smears from CBCs yielding IG's will be scanned manually for concordance. If this scan disagrees with the automated IG or if promyelocytes are noted, a manual differential will be performed. Immature Gran Absolute 0.02 0.00 - 0.05 x10(3)/ L [facility] Blood specimen (specimen) 09/19/2015 6:14 AM EDT 09/19/2015 6:23 AM EDT Narrative Resulting Agency Comment Spec In Lab Larry Larkin MD HEMATOLOGY ORDERABLE S [facility] [place] [address] * (ABNORMAL) Hemogram (09/19/2015 6:14 AM EDT) White Blood Cell 11.6(H) 4.0 - 10.0 x10(3)/[facility] Red Blood Cell 2.92(L) 4.63 - 6.08 x10(6)/[facility] Hemoglobin 9.1(L) 13.7 - 17.5 gm/dL [facility] Hematocrit 27.1(L) 40.0 - 51.0 % [facility] Mean Cell Volume 92.8(H) 79.0 - 92.0 fL [facility] Mean Cell Hemoglobin 31.2 25.6 - 32.2 pg [facility] Mean Cell Hemoglobin Concentration 33.6 32.0 - 36.5 gm/dL [facility] Platelet 206 145 - 370 x10(3)/ L [facility] RDW Standard Deviation 48.3(H) 35.0 - 46.0 fL [facility] RDW coefficient of variation 14.2 10.9 - 14.4 % [facility] Mean Platelet Volume 9.3 9.0 - 12.0 fL [facility] Blood specimen (specimen) 09/19/2015 6:14 AM EDT 09/19/2015 6:23 AM EDT Narrative Resulting Agency Comment Spec In Lab Larry Larkin MD HEMATOLOGY ORDERABLE S Performing Organization Address [facility] Co de Phone Number [facility] [place] [address] * Cryoglobulin (09/19/2015 6:14 AM EDT) Pathologist [facility] Cryoglobulin See Note [facility] Comment: Cryoglobulins negative at 24 and 72 hours. This test was developed and its performance characteristics determined by [facility]. It has not been cleared or approved [...] CHEMISTRY ORDERABLES Performing Organization Address [facility] Co de Phone Number [facility] [place] [address] * (ABNORMAL) Hepatic Function Panel (09/19/2015 6:14 AM EDT) Pathologist [facility] Protein, Total 6.1 6.1 - 8.0 gm/dL [facility] Albumin 3.1(L) 3.2 - 5.2 gm/dL [facility] Aspartate Aminotransferase 20 0 - 39 unit/L [facility] Alanine Aminotransferase 13 0 - 55 unit/L [facility] Alkaline Phosphatase 43 40 - 120 unit/L [facility] Bilirubin, Total 0.4 0.2 - 1.3 mg/dL [facility] Bilirubin, Direct 0.1 0.0 - 0.3 mg/dL [facility] Blood specimen (specimen) 09/19/2015 6:14 AM EDT 09/19/2015 6:23 AM EDT Narrative Resulting Agency Comment Spec In Lab Larry Larkin MD CHEMISTRY ORDERABLES Performing Organization Address City/[facility]/ZIP Co de Phone Number [facility] [place] [address] * Phosphorus (09/19/2015 6:14 AM EDT) [facility] Phosphorus 3.9 2.5 - 4.5 mg/dL [facility] Blood specimen (specimen) 09/19/2015 6:14 AM EDT 09/19/2015 6:23 AM EDT Narrative Resulting Agency Comment Spec In Lab Larry Larkin MD CHEMISTRY ORDERABLES Performing Organization Address [facility] Co de Phone Number [facility] [place] [address] * Magnesium (09/19/2015 6:14 AM EDT) [facility] Magnesium 0.85 0.69 - 1.07 mmol/L [facility] Blood specimen (specimen) 09/19/2015 6:14 AM EDT 09/19/2015 6:23 AM EDT Narrative Resulting Agency Comment Spec In Lab Larry Larkin MD CHEMISTRY ORDERABLES Performing Organization Address [facility] Co de Phone Number [facility] [place] [address] * (ABNORMAL) Basic Metabolic Panel (non-fasting) (09/19/2015 6:14 AM EDT) [facility] Glucose 138 65 - 199 mg/dL [facility] Comment:Diabetes: >=200 mg/d L plus symptoms Blood Urea Nitrogen 64(H) 10 - 20 mg/dL [facility] Creatinine 3.25(H) 0.80 - 1.50 mg/dL [facility] Comment: result rechecked-mkf Please note that the pediatric reference intervals supplied above were not validated at [facility]. Results from pediatric patients should be interpreted in conjunction to the patient's age, height and muscle mass. Sodium 142 135 - 145 mmol/L [facility] Carbon Dioxide 21(L) 22 - 31 mmol/L [facility] Anion Gap 13 5 - 15 mmol/L [facility] Calcium 8.8 8.5 - 10.5 mg/dL [facility] Est Glomerular Filtration Rate 19(L) >=60 [facility] Comment: This estimated [...] the following links into your internet browser. [email or web address] Blood specimen (specimen) 09/19/2015 6:14 AM EDT 09/19/2015 6:23 AM EDT Narrative Resulting Agency Comment Spec In Lab Larry Larkin MD CHEMISTRY ORDERABLES [facility] [place] [address] * (ABNORMAL) Complement, Total (09/19/2015 6:14 AM EDT) Complement, Total 22(L) 30 - 75 unit/mL [facility] Comment: Test Performed by: [facility] [address], [place] [address] Heating And Refrigeration Inspector: Rosetta Conway, Ph.D. Blood specimen (specimen) 09/19/2015 6:14 AM EDT 09/19/2015 9:09 AM EDT Narrative Resulting Agency Comment Spec In Lab Larry Larkin MD CHEMISTRY ORDERABLES Performing Organization Address [facility] Co de Phone Number [facility] [place] [address] * C4 Complement (09/19/2015 6:14 AM EDT) Complement C4 29 10 - 40 mg/dL [facility] Blood specimen (specimen) 09/19/2015 6:14 AM EDT 09/19/2015 6:23 AM EDT Narrative Resulting Agency Comment Spec In Lab Larry Larkin MD CHEMISTRY ORDERABLES Performing Organization Address [facility] Co de Phone Number [facility] [place] [address] * C3 Complement (09/19/2015 6:14 AM EDT) Complement C3 100 90 - 180 mg/dL [facility] Blood specimen (specimen) 09/19/2015 6:14 AM EDT 09/19/2015 6:23 AM EDT Narrative Resulting Agency Comment Spec In Lab Larry Larkin MD CHEMISTRY ORDERABLES Performing Organization Address [facility] Co de Phone Number [facility] [place] [address] * POCT Glucose (09/18/2015 8:45 PM EDT) Glucose, POC 186 65 - 199 mg/dL [facility] Comment: Supplemental ranges: <140 mg/dL before meals <180 mg/dL all other times of the day Blood specimen (specimen) 09/18/2015 8:45 PM EDT 09/18/2015 8:45 PM EDT Larry Larkin MD POINT OF CARE TEST O RDERABLES Performing Organization Address [facility] Co de Phone Number [facility] [place] [address] * POCT Glucose (09/18/2015 3:48 PM EDT) Glucose, POC 173 65 - 199 mg/dL [facility] Comment: Supplemental ranges: <140 mg/dL before meals <180 mg/dL all other times of the day Blood specimen (specimen) 09/18/2015 3:48 PM EDT 09/18/2015 3:48 PM EDT Larry Larkin MD POINT OF CARE TEST O TED Performing Organization Address [facility] Co de Phone Number [facility] [place] [address] * POCT Glucose (09/18/2015 12:10 PM EDT) Glucose, POC 186 65 - 199 mg/dL [facility] Comment: Supplemental ranges: <140 mg/dL before meals <180 mg/dL all other times of the day Blood specimen (specimen) 09/18/2015 12:10 PM EDT 09/18/2015 12:10 PM EDT Larry Larkin MD POINT OF CARE TEST O DENNYSERABG Performing Organization Address [facility] Co de Phone Number [facility] [place] [address] * POCT Glucose (09/18/2015 7:58 AM EDT) Glucose, POC 133 65 - 199 mg/dL [facility] Comment: Supplemental ranges: <140 mg/dL before meals <180 mg/dL all other times of the day Blood specimen (specimen) 09/18/2015 7:58 AM EDT 09/18/2015 7:58 AM EDT Larry Larkin MD POINT OF CARE TEST O RDERABG [facility] [place] [address] * (ABNORMAL) Differential, Automated (09/18/2015 2:31 AM EDT) Neutrophil % 92.1 % [facility] Neutrophil Absolute 13.35(H) 1.50 - 6.30 x10(3)/mc L [facility] Lymph % 4.5 % [facility] Lymphocytes Abs 0.6(L) 1.0 - 3.6 x10(3)/mc L [facility] Monocyte % 3.0 % [facility] Monocyte Abs 0.4 0.2 - 1.0 x10(3)/ L [facility] Eos % 0.0 % [facility] Eosinophils Abs 0.0 0.0 - 0.5 x10(3)/[facility] Basophil % 0.1 % [facility] Baso Absolute 0.0 0.0 - 0.2 x10(3)/ L [facility] Immature Gran % 0.30 % [facility] Comment: Immature granulocytes(IG's)percentage and absolute count will include metamyelocytes, myelocytes, and promyelocytes. Blood smears from CBCs yielding IG's will be scanned manually for concordance. If this scan disagrees with the automated IG or if promyelocytes are noted, a manual differential will be performed. Immature Gran Absolute 0.04 0.00 - 0.05 x10(3)/mc L [facility] Blood specimen (specimen) 09/18/2015 2:31 AM EDT 09/18/2015 2:50 AM EDT Narrative Resulting Agency Comment Spec In Lab Larry Larkin MD HEMATOLOGY ORDERABLE S [facility] [place] [address] * (ABNORMAL) Hemogram (09/18/2015 2:31 AM EDT) White Blood Cell 14.5(H) 4.0 - 10.0 x10(3)/mc L [facility] Red Blood Cell 3.13(L) 4.63 - 6.08 x10(6)/mc L [facility] Hemoglobin 9.7(L) 13.7 - 17.5 gm/dL [facility] Hematocrit 29.3(L) 40.0 - 51.0 % [facility] Mean Cell Volume 93.6(H) 79.0 - 92.0 fL [facility] Mean Cell Hemoglobin 31.0 25.6 - 32.2 pg [facility] Mean Cell Hemoglobin Concentration 33.1 32.0 - 36.5 gm/dL [facility] Platelet 233 145 - 370 x10(3)/mc L [facility] RDW Standard Deviation 48.8(H) 35.0 - 46.0 fL [facility] RDW coefficient of variation 14.3 10.9 - 14.4 % [facility] Mean Platelet Volume 9.3 9.0 - 12.0 fL [facility] Blood specimen (specimen) 09/18/2015 2:31 AM EDT 09/18/2015 2:50 AM EDT Narrative Resulting Agency Comment Spec In Lab Larry Larkin MD HEMATOLOGY ORDERABLE S Performing Organization Address City/State/[facility] Co de Phone Number [facility] [place] [address] * (ABNORMAL) Hepatic Function Panel (09/18/2015 2:31 AM EDT) [facility] Protein, Total 6.1 6.1 - 8.0 gm/dL [facility] Albumin 3.1(L) 3.2 - 5.2 gm/dL [facility] Aspartate Aminotransferase 21 0 - 39 unit/L [facility] Alanine Aminotransferase 14 0 - 55 unit/L [facility] Alkaline Phosphatase 49 40 - 120 unit/L [facility] Bilirubin, Total 0.4 0.2 - 1.3 mg/dL [facility] Bilirubin, Direct 0.1 0.0 - 0.3 mg/dL [facility] Blood specimen (specimen) 09/18/2015 2:31 AM EDT 09/18/2015 2:50 AM EDT Narrative Resulting Agency Comment Spec In Lab Larry Larkin MD CHEMISTRY ORDERABLES Performing Organization Address City/[facility]/ZIP Co de Phone Number [facility] [place] [address] * (ABNORMAL) Phosphorus (09/18/2015 2:31 AM EDT) Phosphorus 5.5(H) 2.5 - 4.5 mg/dL [facility] Blood specimen (specimen) 09/18/2015 2:31 AM EDT 09/18/2015 2:50 AM EDT Narrative Resulting Agency Comment Spec In Lab Larry Larkin MD CHEMISTRY ORDERABLES Performing Organization Address [facility] Co de Phone Number [facility] [place] [address] * Magnesium (09/18/2015 2:31 AM EDT) Magnesium 0.77 0.69 - 1.07 mmol/L [facility] Blood specimen (specimen) 09/18/2015 2:31 AM EDT 09/18/2015 2:50 AM EDT Narrative Resulting Agency Comment Spec In Lab Larry Larkin MD CHEMISTRY ORDERABLES Performing Organization Address [facility] Co de Phone Number [facility] [place] [address] * (ABNORMAL) Basic Metabolic Panel (non-fasting) (09/18/2015 2:31 AM EDT) Glucose 168 65 - 199 mg/dL [facility] Comment:Diabetes: >=200 mg/d L plus symptoms Blood Urea Nitrogen 69(H) 10 - 20 mg/dL [facility] Creatinine 6.26(H) 0.80 - 1.50 mg/dL [facility] Comment: Please note that the pediatric reference intervals supplied above were not validated at [facility]. Results from pediatric patients should be interpreted in conjunction to the patient's age, height and muscle mass. Sodium 137 135 - 145 mmol/L [facility] Potassium 5.2(H) 3.5 - 5.0 mmol/L [facility] Comment: Please note: ??Patients with WBC >100,000 may have falsely elevated Potassium levels. ??For accurate Potassium quantification in these patients send serum separator tube (gold top) for subsequent determinations. ??Contact the Clinical Chemistry Laboratory if there are any questions. Chloride 102 98 - 107 mmol/L [facility] Carbon Dioxide 20(L) 22 - 31 mmol/L [facility] Anion Gap 15 5 - 15 mmol/L [facility] Calcium 8.8 8.5 - 10.5 mg/dL [facility] Est Glomerular Filtration Rate 9(L) >=60 [facility] Comment: This estimated [...] the following links into your internet browser. [email or web address] Blood specimen (specimen) 09/18/2015 2:31 AM EDT 09/18/2015 2:50 AM EDT Narrative Resulting Agency Comment Spec In Lab Larry Larkin MD CHEMISTRY ORDERABLES [facility] [place] [address] * (ABNORMAL) Basic Metabolic Panel (non-fasting) (09/17/2015 9:55 PM EDT) Glucose 190 65 - 199 mg/dL [facility] Comment:Diabetes: >=200 mg/d L plus symptoms Blood Urea Nitrogen 67(H) 10 - 20 mg/dL [facility] Creatinine 6.73(H) 0.80 - 1.50 mg/dL [facility] Comment: Please note that the pediatric reference intervals supplied above were not validated at [facility]. Results from pediatric patients should be interpreted in conjunction to the patient's age, height and muscle mass. Sodium 137 135 - 145 mmol/L [facility] Potassium 5.0 3.5 - 5.0 mmol/L [facility] Comment: Please note: ??Patients with WBC >100,000 may have falsely elevated Potassium levels. ??For accurate Potassium quantification in these patients send serum separator tube (gold top) for subsequent determinations. ??Contact the Clinical Chemistry Laboratory if there are any questions. Chloride 101 98 - 107 mmol/L [facility] Carbon Dioxide 19(L) 22 - 31 mmol/L [facility] Anion Gap 17(H) 5 - 15 mmol/L [facility] Calcium 8.5 8.5 - 10.5 mg/dL [facility] Est Glomerular Filtration Rate 8(L) >=60 [facility] Comment: This estimated [...] the following links into your internet browser. [email or web address] Blood specimen (specimen) 09/17/2015 9:55 PM EDT 09/17/2015 9:59 PM EDT Narrative Resulting Agency Comment Spec In Lab Larry Larkin MD CHEMISTRY ORDERABLES [facility] [place] [address] * Renal Transplant Left (09/17/2015 12:37 PM EDT) Anatomical Region Laterality Modality Abdomen Left Ultrasound 09/17/2015 1:09 PM EDT Narrative 09/17/2015 1:39 PM EDT Transplant ? (Signed Final 09/17/2015 01:38 pm) Patient Info ID #: ? [id number] ? : [birth year] (65 yrs) Name: ? ETHEL BOLDEN ? Visit Date:09/17/2015 01:09 pm Performed By Performed By: ? Jessee Espinal RDMS Attending: ?Jewel GERBER, Preeti Sanford Associate: ?Alan GERBER, Victor Manuel Sanford Referred By: ?LARRY LARKIN MD Service(s) Provided ??URTPL - Ultrasound Renal Transplant - Left - [id number] Indications ??POD#1 s/p renal transplant on Left; [...] Final 09/17/2015 01:38pm) Patient Info ID #: [id number] : 46 (65 yrs) Name: ETHEL BOLDEN Visit Date:09/17/2015 01:09 pm Performed By Performed By: Jessee Espinal RDMS Attending: Preeti Holloway MD Associate: Victor Manuel Phillips MD Referred By: LARRY LARKIN MD Service(s) Provided URTPL - Ultrasound Renal Transplant - Left - [id number] Indications POD#1 s/p renal transplant on Left; [...] 11:31 AM EDT) Neutrophil % 88.3 % [facility] Neutrophil Absolute 14.45(H) 1.50 - 6.30 x10(3)/mc L [facility] Lymph % 3.1 % [facility] Lymphocytes Abs 0.5(L) 1.0 - 3.6 x10(3)/mc L [facility] Monocyte % 8.3 % [facility] Monocyte Abs 1.4(H) 0.2 - 1.0 x10(3)/[facility] Eos % 0.0 % [facility] Eosinophils Abs 0.0 0.0 - 0.5 x10(3)/[facility] Basophil % 0.1 % [facility] Baso Absolute 0.0 0.0 - 0.2 x10(3)/[facility] Immature Gran % 0.20 % [facility] Comment: Immature granulocytes(IG's)percentage and absolute count will include metamyelocytes, myelocytes, and promyelocytes. Blood smears from CBCs yielding IG's will be scanned manually for concordance. If this scan disagrees with the automated IG or if promyelocytes are noted, a manual differential will be performed. Immature Gran Absolute 0.03 0.00 - 0.05 x10(3)/[facility] Blood specimen (specimen) 09/17/2015 11:31 AM EDT 09/17/2015 11:38 AM EDT Narrative Resulting Agency Comment Spec In Lab Larry Larkin MD HEMATOLOGY ORDERABLE S [facility] [place] [address] * (ABNORMAL) Hemogram (09/17/2015 11:31 AM EDT) White Blood Cell 16.4(H) 4.0 - 10.0 x10(3)/[facility] Red Blood Cell 3.60(L) 4.63 - 6.08 x10(6)/[facility] Hemoglobin 11.1(L) 13.7 - 17.5 gm/dL [facility] Hematocrit 33.9(L) 40.0 - 51.0 % [facility] Mean Cell Volume 94.2(H) 79.0 - 92.0 fL [facility] Mean Cell Hemoglobin 30.8 25.6 - 32.2 pg [facility] Mean Cell Hemoglobin Concentration 32.7 32.0 - 36.5 gm/dL [facility] Platelet 276 145 - 370 x10(3)/mc L [facility] RDW Standard Deviation 49.3(H) 35.0 - 46.0 fL [facility] RDW coefficient of variation 14.3 10.9 - 14.4 % [facility] Mean Platelet Volume 9.4 9.0 - 12.0 fL [facility] Blood specimen (specimen) 09/17/2015 11:31 AM EDT 09/17/2015 11:38 AM EDT Narrative Resulting Agency Comment Spec In Lab Larry Larkin MD HEMATOLOGY ORDERABLE S [facility] [place] [phone] * HIV Quant (09/17/2015 11:31 AM EDT) [...] Administration. Gibson Good, Ph.D. Director, Molecular Pathology [facility] Comment: [VERIFIED DATE]09.21.15 Verified By:Xiomy Gupta (Electronic Signature) Blood specimen (specimen) 09/17/2015 11:31 AM EDT 09/20/2015 2:24 PM EDT Narrative Resulting Agency Comment Spec In Lab Que Amaro MD HEMATOLOGY ORD ERABLES Performing Organization Address [facility] Co de Phone Number [facility] [place] [address] * HBV Quant (09/17/2015 11:31 AM EDT) [...] Laboratory. Gibson Good, Ph.D. Director, Molecular Pathology [facility] Blood specimen (specimen) 09/17/2015 11:31 AM EDT 09/21/2015 9:44 AM EDT Narrative Resulting Agency Comment Spec In Lab Que Amaro MD CHEMISTRY ORDBhargav JENNINGS Performing Organization Address [facility] Co de Phone Number [facility] [place] [address] * (ABNORMAL) Potassium (09/17/2015 11:31 AM EDT) Pathologist [facility] Potassium 5.6(H) 3.5 - 5.0 mmol/L [facility] CHEMISTRY ORDERABLES Performing Organization Address [facility]/ZIP Co de Phone Number [facility] [place] [address] * Blood culture (09/17/2015 10:36 AM EDT) Pathologist [facility] Blood Culture No growth at 5 days. [facility] Blood specimen (specimen) ARTERIAL LINE / Unknown 09/17/2015 10:36 AM EDT 09/17/2015 10:46 AM EDT Narrative Resulting Agency Comment Spec In Lab Larry Larkin MD MICROBIOLOGY - BLOOD ORDERABLES Performing Organization Address [facility] Co de Phone Number [facility] [place] [address] * Hep C Viral RNA NS3 Genotype (09/17/2015 10:17 AM EDT) [facility] HCV RNA NS3 Genotype See Note [facility] Comment: Please see scanned report in Chart Review under the Non-[facility] Laboratory Heading. Test performed by [employer] [facility] [place], [address] [place] [address] Blood specimen (specimen) 09/17/2015 10:17 AM EDT 09/17/2015 11:42 AM EDT Narrative Resulting Agency Comment Spec In Lab Larry Larkin MD CHEMISTRY ORDERABLES Performing Organization Address [facility] Co de Phone Number [facility] [place] [address] * Hepatitis C RNA, quantitative, PCR (09/17/2015 10:17 AM EDT) Pathologist [facility] HCV Viral Load 323,972 IU/mL [facility] HCV Viral Load Result: [id number] IU/mL Indication for Study: Hepatitis C Infection [...] Laboratory. Gibson Good, Ph.D. Director, Molecular Pathology [facility] Comment: [VERIFIED DATE]09.21.15 Verified By:Xiomy Gupta (Electronic Signature) Blood specimen (specimen) 09/17/2015 10:17 AM EDT 09/20/2015 2:34 PM EDT Narrative Resulting Agency Comment Spec In Lab Larry Larkin MD MOLECULAR ORDERABLES [facility] [place] [address] * Blood culture (09/17/2015 10:17 AM EDT) Blood Culture No growth at 5 days. [facility] Blood specimen (specimen) ANTECUBITAL REGION STRUCTURE / Unknown 09/17/2015 10:17 AM EDT 09/17/2015 10:46 AM EDT Narrative Resulting Agency Comment Spec In Lab Larry Larkin MD MICROBIOLOGY - BLOOD ORDERABLES Performing Organization Address City/[facility]/ZIP Co de Phone Number [facility] [place] [address] * (ABNORMAL) Phosphorus (09/17/2015 9:17 AM EDT) Phosphorus 6.9(H) 2.5 - 4.5 mg/dL [facility] Blood specimen (specimen) Venous Draw / Unknown 09/17/2015 9:17 AM EDT 09/17/2015 9:41 AM EDT Narrative Resulting Agency Comment Spec In Lab Larry Larkin MD CHEMISTRY ORDERABLES Performing Organization Address City/[facility]/ZIP Co de Phone Number [facility] [place] [address] * Magnesium (09/17/2015 9:17 AM EDT) Magnesium 0.75 0.69 - 1.07 mmol/L [facility] Blood specimen (specimen) Venous Draw / Unknown 09/17/2015 9:17 AM EDT 09/17/2015 9:41 AM EDT Narrative Resulting Agency Comment Spec In Lab Larry Larkin MD CHEMISTRY ORDERABLES Performing Organization Address City/State/[facility] Co de Phone Number [facility] [place] [address] * (ABNORMAL) Differential, Automated (09/17/2015 9:17 AM EDT) [facility] Neutrophil % 90.3 % [facility] Neutrophil Absolute 13.67(H) 1.50 - 6.30 x10(3)/mc L [facility] Lymph % 3.7 % [facility] Lymphocytes Abs 0.6(L) 1.0 - 3.6 x10(3)/ L [facility] Monocyte % 5.6 % [facility] Monocyte Abs 0.8 0.2 - 1.0 x10(3)/ L [facility] Eos % 0.0 % [facility] Eosinophils Abs 0.0 0.0 - 0.5 x10(3)/ L [facility] Basophil % 0.1 % [facility] Baso Absolute 0.0 0.0 - 0.2 x10(3)/mc L [facility] Immature Gran % 0.30 % [facility] Comment: Immature granulocytes(IG's)percentage and absolute count will include metamyelocytes, myelocytes, and promyelocytes. Blood smears from CBCs yielding IG's will be scanned manually for concordance. If this scan disagrees with the automated IG or if promyelocytes are noted, a manual differential will be performed. Immature Gran Absolute 0.04 0.00 - 0.05 x10(3)/mc L [facility] Blood specimen (specimen) 09/17/2015 9:17 AM EDT 09/17/2015 9:41 AM EDT Narrative Resulting Agency Comment Spec In Lab Larry Larkin MD HEMATOLOGY ORDERABLE S [facility] [place] [address] * (ABNORMAL) Hemogram (09/17/2015 9:17 AM EDT) White Blood Cell 15.1(H) 4.0 - 10.0 x10(3)/mc L [facility] Red Blood Cell 3.58(L) 4.63 - 6.08 x10(6)/mc L [facility] Hemoglobin 11.3(L) 13.7 - 17.5 gm/dL [facility] Hematocrit 33.3(L) 40.0 - 51.0 % [facility] Mean Cell Volume 93.0(H) 79.0 - 92.0 fL [facility] Mean Cell Hemoglobin 31.6 25.6 - 32.2 pg [facility] Mean Cell Hemoglobin Concentration 33.9 32.0 - 36.5 gm/dL [facility] Platelet 271 145 - 370 x10(3)/mc L [facility] RDW Standard Deviation 49.5(H) 35.0 - 46.0 fL [facility] RDW coefficient of variation 14.5(H) 10.9 - 14.4 % [facility] Mean Platelet Volume 9.5 9.0 - 12.0 fL [facility] Blood specimen (specimen) 09/17/2015 9:17 AM EDT 09/17/2015 9:41 AM EDT Narrative Resulting Agency Comment Spec In Lab Larry Larkin MD HEMATOLOGY ORDERABLE S Performing Organization Address City/[facility]/ZIP Co de Phone Number [facility] [place] [address] * (ABNORMAL) Comprehensive metabolic panel (non-fasting) (09/17/2015 9:17 AM EDT) Glucose 157 65 - 199 mg/dL [facility] Comment:Diabetes: >=200 mg/d L plus symptoms Blood Urea Nitrogen 59(H) 10 - 20 mg/dL [facility] Creatinine 6.96(H) 0.80 - 1.50 mg/dL [facility] Comment: Please note that the pediatric reference intervals supplied above were not validated at [facility]. Results from pediatric patients should be interpreted in conjunction to the patient's age, height and muscle mass. Sodium 137 135 - 145 mmol/L [facility] Potassium Not Perf 3.5 - 5.0 mmol/L [facility] Comment: Unable to quantitate due [...] questions. Chloride 100 98 - 107 mmol/L [facility] Carbon Dioxide 16(L) 22 - 31 mmol/L [facility] Anion Gap 21(H) 5 - 15 mmol/L [facility] Calcium 8.6 8.5 - 10.5 mg/dL [facility] Protein, Total 6.7 6.1 - 8.0 gm/dL [facility] Albumin 3.5 3.2 - 5.2 gm/dL [facility] Aspartate Aminotransferase Not Perf 0 - 39 unit/L [facility] Comment: Unable to quantitate due to sample hemolysis. ??Sample redraw suggested. Called by:hp _, Read back by: rafy hooker, Date/Time:09/17/15 10:48. Alanine Aminotransferase 18 0 - 55 unit/L [facility] Alkaline Phosphatase 57 40 - 120 unit/L [facility] Bilirubin, Total 0.7 0.2 - 1.3 mg/dL [facility] Bilirubin, Direct Not Perf 0.0 - 0.3 mg/dL [facility] Comment: Unable to quantitate due to sample hemolysis. ??Sample redraw suggested. Called by:nasra _, Read back by: rafy hooker, Date/Time:09/17/15 10:48. Est Glomerular Filtration Rate 8(L) >=60 [facility] Comment: [...] the following links into your internet browser. [email or web address] Blood specimen (specimen) 09/17/2015 9:17 AM EDT 09/17/2015 9:41 AM EDT Narrative Resulting Agency Comment Spec In Lab Larry Larkin MD CHEMISTRY ORDERABLES [facility] [place] [address] * Vancomycin, trough (09/17/2015 9:17 AM EDT) Vancomycin, Trough 24.6 mg/L [facility] Comment: Therapeutic range for [...] In Lab Larry Larkin MD CHEMISTRY ORDERABLES [facility] [place] [address] * POCT Glucose (09/17/2015 8:58 AM EDT) Glucose, POC 143 65 - 199 mg/dL [facility] Comment: Supplemental ranges: <140 mg/dL before meals <180 mg/dL all other times of the day Blood specimen (specimen) 09/17/2015 8:58 AM EDT 09/17/2015 8:58 AM EDT Larry Larkin MD POINT OF CARE TEST O RDERABLES Performing Organization Address City/[facility]/ZIP Co de Phone Number [facility] [place] [address] * (ABNORMAL) Differential, Automated (09/17/2015 3:30 AM EDT) [facility] Neutrophil % 92.5 % [facility] Neutrophil Absolute 12.16(H) 1.50 - 6.30 x10(3)/mc L [facility] Lymph % 3.6 % [facility] Lymphocytes Abs 0.5(L) 1.0 - 3.6 x10(3)/mc L [facility] Monocyte % 3.5 % [facility] Monocyte Abs 0.5 0.2 - 1.0 x10(3)/mc L [facility] Eos % 0.1 % [facility] Eosinophils Abs 0.0 0.0 - 0.5 x10(3)/mc L [facility] Basophil % 0.1 % [facility] Baso Absolute 0.0 0.0 - 0.2 x10(3)/mc L [facility] Immature Gran % 0.20 % [facility] Comment: Immature granulocytes(IG's)percentage and absolute count will include metamyelocytes, myelocytes, and promyelocytes. Blood smears from CBCs yielding IG's will be scanned manually for concordance. If this scan disagrees with the automated IG or if promyelocytes are noted, a manual differential will be performed. Immature Gran Absolute 0.02 0.00 - 0.05 x10(3)/mc L [facility] Blood specimen (specimen) 09/17/2015 3:30 AM EDT 09/17/2015 3:36 AM EDT Narrative Resulting Agency Comment Spec In Lab Larry Larkin MD HEMATOLOGY ORDERABLE S [facility] [place] [address] * (ABNORMAL) Hemogram (09/17/2015 3:30 AM EDT) White Blood Cell 13.1(H) 4.0 - 10.0 x10(3)/ L [facility] Red Blood Cell 3.56(L) 4.63 - 6.08 x10(6)/mc L [facility] Hemoglobin 11.2(L) 13.7 - 17.5 gm/dL [facility] Hematocrit 32.8(L) 40.0 - 51.0 % [facility] Mean Cell Volume 92.1(H) 79.0 - 92.0 fL [facility] Mean Cell Hemoglobin 31.5 25.6 - 32.2 pg [facility] Mean Cell Hemoglobin Concentration 34.1 32.0 - 36.5 gm/dL [facility] Platelet 223 145 - 370 x10(3)/mc L [facility] RDW Standard Deviation 48.0(H) 35.0 - 46.0 fL [facility] RDW coefficient of variation 14.3 10.9 - 14.4 % [facility] Mean Platelet Volume 9.4 9.0 - 12.0 fL [facility] Blood specimen (specimen) 09/17/2015 3:30 AM EDT 09/17/2015 3:36 AM EDT Narrative Resulting Agency Comment Spec In Lab Larry Larkin MD HEMATOLOGY ORDERABLE S Performing Organization Address [facility] Co de Phone Number [facility] [place] [address] * (ABNORMAL) Phosphorus (09/17/2015 3:30 AM EDT) Phosphorus 6.7(H) 2.5 - 4.5 mg/dL [facility] Blood specimen (specimen) 09/17/2015 3:30 AM EDT 09/17/2015 3:36 AM EDT Narrative Resulting Agency Comment Spec In Lab Larry Larkin MD CHEMISTRY ORDERABLES Performing Organization Address [facility] de Phone Number [facility] [place] [address] * Magnesium (09/17/2015 3:30 AM EDT) Magnesium 0.73 0.69 - 1.07 mmol/L [facility] Blood specimen (specimen) 09/17/2015 3:30 AM EDT 09/17/2015 3:36 AM EDT Narrative Resulting Agency Comment Spec In Lab Larry Larkin MD CHEMISTRY ORDERABLES Performing Organization Address [facility] Co de Phone Number [facility] [place] [address] * (ABNORMAL) Comprehensive metabolic panel (non-fasting) (09/17/2015 3:30 AM EDT) Glucose 160 65 - 199 mg/dL [facility] Comment:Diabetes: >=200 mg/d L plus symptoms Blood Urea Nitrogen 52(H) 10 - 20 mg/dL [facility] Creatinine 6.94(H) 0.80 - 1.50 mg/dL [facility] Comment: Please note that the pediatric reference intervals supplied above were not validated at [facility]. Results from pediatric patients should be interpreted in conjunction to the patient's age, height and muscle mass. Sodium 137 135 - 145 mmol/L [facility] Potassium 5.7(H) 3.5 - 5.0 mmol/L [facility] [...] mmol/L [facility] Calcium 8.3(L) 8.5 - 10.5 mg/dL [facility] Protein, Total 6.4 6.1 - 8.0 gm/dL [facility] Albumin 3.3 3.2 - 5.2 gm/dL [facility] Aspartate Aminotransferase 20 0 - 39 unit/L [facility] Alanine Aminotransferase 16 0 - 55 unit/L [facility] Alkaline Phosphatase 55 40 - 120 unit/L [facility] Bilirubin, Total 0.6 0.2 - 1.3 mg/dL [facility] Bilirubin, Direct 0.2 0.0 - 0.3 mg/dL [facility] Est Glomerular Filtration Rate 8(L) >=60 [facility] Comment: [...] the following links into your internet browser. [email or web address] Blood specimen (specimen) 09/17/2015 3:30 AM EDT 09/17/2015 3:36 AM EDT Narrative Resulting Agency Comment Spec In Lab Larry Larkin MD CHEMISTRY ORDERABLES [facility] [place] [address] * (ABNORMAL) Differential, Automated (09/16/2015 9:50 PM EDT) Neutrophil % 92.3 % [facility] Neutrophil Absolute 12.45(H) 1.50 - 6.30 x10(3)/mc L [facility] Lymph % 3.6 % [facility] Lymphocytes Abs 0.5(L) 1.0 - 3.6 x10(3)/mc L [facility] Monocyte % 3.6 % [facility] Monocyte Abs 0.5 0.2 - 1.0 x10(3)/mc L [facility] Eos % 0.1 % [facility] Eosinophils Abs 0.0 0.0 - 0.5 x10(3)/mc L [facility] Basophil % 0.1 % [facility] Baso Absolute 0.0 0.0 - 0.2 x10(3)/mc L [facility] Immature Gran % 0.30 % [facility] Comment: Immature granulocytes(IG's)percentage and absolute count will include metamyelocytes, myelocytes, and promyelocytes. Blood smears from CBCs yielding IG's will be scanned manually for concordance. If this scan disagrees with the automated IG or if promyelocytes are noted, a manual differential will be performed. Immature Gran Absolute 0.04 0.00 - 0.05 x10(3)/mc L [facility] Blood specimen (specimen) 09/16/2015 9:50 PM EDT 09/16/2015 10:05 PM EDT Narrative Resulting Agency Comment Spec In Lab Larry Larkin MD HEMATOLOGY ORDERABLE S [facility] [place] [address] * (ABNORMAL) Hemogram (09/16/2015 9:50 PM EDT) White Blood Cell 13.5(H) 4.0 - 10.0 x10(3)/mc L [facility] Red Blood Cell 3.70(L) 4.63 - 6.08 x10(6)/mc L [facility] Hemoglobin 11.7(L) 13.7 - 17.5 gm/dL [facility] Hematocrit 33.9(L) 40.0 - 51.0 % [facility] Mean Cell Volume 91.6 79.0 - 92.0 fL [facility] Mean Cell Hemoglobin 31.6 25.6 - 32.2 pg [facility] Mean Cell Hemoglobin Concentration 34.5 32.0 - 36.5 gm/dL [facility] Platelet 227 145 - 370 x10(3)/mc L [facility] RDW Standard Deviation 47.7(H) 35.0 - 46.0 fL [facility] RDW coefficient of variation 14.3 10.9 - 14.4 % [facility] Mean Platelet Volume 9.5 9.0 - 12.0 fL [facility] Blood specimen (specimen) 09/16/2015 9:50 PM EDT 09/16/2015 10:05 PM EDT Narrative Resulting Agency Comment Spec In Lab Larry Larkin MD HEMATOLOGY ORDERABLE S [facility] [place] [address] * (ABNORMAL) Phosphorus (09/16/2015 9:50 PM EDT) Phosphorus 6.2(H) 2.5 - 4.5 mg/dL [facility] Blood specimen (specimen) 09/16/2015 9:50 PM EDT 09/16/2015 10:05 PM EDT Narrative Resulting Agency Comment Spec In Lab Larry Larkin MD CHEMISTRY ORDERABLES Performing Organization Address [facility] Co de Phone Number [facility] [place] [address] * Magnesium (09/16/2015 9:50 PM EDT) Magnesium 0.75 0.69 - 1.07 mmol/L [facility] Blood specimen (specimen) 09/16/2015 9:50 PM EDT 09/16/2015 10:05 PM EDT Narrative Resulting Agency Comment Spec In Lab Larry Larkin MD CHEMISTRY ORDERABLES Performing Organization Address [facility] Co de Phone Number [facility] [place] [address] * (ABNORMAL) Comprehensive metabolic panel (non-fasting) (09/16/2015 9:50 PM EDT) Glucose 158 65 - 199 mg/dL [facility] Comment:Diabetes: >=200 mg/d L plus symptoms Blood Urea Nitrogen 48(H) 10 - 20 mg/dL [facility] Creatinine 6.94(H) 0.80 - 1.50 mg/dL [facility] Comment: Please note that the pediatric reference intervals supplied above were not validated at [facility]. Results from pediatric patients should be interpreted in conjunction to the patient's age, height and muscle mass. Sodium 138 135 - 145 mmol/L [facility] Potassium 5.3(H) 3.5 - 5.0 mmol/L [facility] Comment: Please note: ??Patients with WBC >100,000 may have falsely elevated Potassium levels. ??For accurate Potassium quantification in these patients send serum separator tube (gold top) for subsequent determinations. ??Contact the Clinical Chemistry Laboratory if there are any questions. Chloride 100 98 - 107 mmol/L [facility] Carbon Dioxide 22 22 - 31 mmol/L [facility] Anion Gap 16(H) 5 - 15 mmol/L [facility] Calcium 8.5 8.5 - 10.5 mg/dL [facility] Protein, Total 6.6 6.1 - 8.0 gm/dL [facility] Albumin 3.4 3.2 - 5.2 gm/dL [facility] Aspartate Aminotransferase 19 0 - 39 unit/L [facility] Alanine Aminotransferase 17 0 - 55 unit/L [facility] Alkaline Phosphatase 59 40 - 120 unit/L [facility] Bilirubin, Total 0.7 0.2 - 1.3 mg/dL [facility] Bilirubin, Direct 0.2 0.0 - 0.3 mg/dL [facility] Est Glomerular Filtration Rate 8(L) >=60 [facility] Comment: [...] the following links into your internet browser. [email or web address] Blood specimen (specimen) 09/16/2015 9:50 PM EDT 09/16/2015 10:05 PM EDT Narrative Resulting Agency Comment Spec In Lab Larry Larkin MD CHEMISTRY ORDERABLES [facility] [place] [address] * POCT Glucose (09/16/2015 5:36 PM EDT) Glucose, POC 135 65 - 199 mg/dL [facility] Comment: Supplemental ranges: <140 mg/dL before meals <180 mg/dL all other times of the day Blood specimen (specimen) 09/16/2015 5:36 PM EDT 09/16/2015 5:36 PM EDT Larry Larkin MD POINT OF CARE TEST O RDERABLES [facility] [place] [address] * (ABNORMAL) Differential, Automated (09/16/2015 3:29 PM EDT) Neutrophil % 88.2 % [facility] Neutrophil Absolute 6.47(H) 1.50 - 6.30 x10(3)/ L [facility] Lymph % 8.3 % [facility] Lymphocytes Abs 0.6(L) 1.0 - 3.6 x10(3)/ L [facility] Monocyte % 1.5 % [facility] Monocyte Abs 0.1(L) 0.2 - 1.0 x10(3)/ L [facility] Eos % 1.6 % [facility] Eosinophils Abs 0.1 0.0 - 0.5 x10(3)/ L [facility] Basophil % 0.3 % [facility] Baso Absolute 0.0 0.0 - 0.2 x10(3)/ L [facility] Immature Gran % 0.10 % [facility] Comment: Immature granulocytes(IG's)percentage and absolute count will include metamyelocytes, myelocytes, and promyelocytes. Blood smears from CBCs yielding IG's will be scanned manually for concordance. If this scan disagrees with the automated IG or if promyelocytes are noted, a manual differential will be performed. Immature Gran Absolute 0.01 0.00 - 0.05 x10(3)/ L [facility] Blood specimen (specimen) 09/16/2015 3:29 PM EDT 09/16/2015 3:29 PM EDT Narrative Resulting Agency Comment Spec In Lab Larry Larkin MD HEMATOLOGY ORDERABLE S [facility] [place] [address] * (ABNORMAL) Hemogram (09/16/2015 3:29 PM EDT) White Blood Cell 7.3 4.0 - 10.0 x10(3)/mc L [facility] Red Blood Cell 3.65(L) 4.63 - 6.08 x10(6)/mc L [facility] Hemoglobin 11.5(L) 13.7 - 17.5 gm/dL [facility] Hematocrit 33.3(L) 40.0 - 51.0 % [facility] Mean Cell Volume 91.2 79.0 - 92.0 fL [facility] Mean Cell Hemoglobin 31.5 25.6 - 32.2 pg [facility] Mean Cell Hemoglobin Concentration 34.5 32.0 - 36.5 gm/dL [facility] Platelet 211 145 - 370 x10(3)/mc L [facility] RDW Standard Deviation 46.8(H) 35.0 - 46.0 fL [facility] RDW coefficient of variation 14.1 10.9 - 14.4 % [facility] Mean Platelet Volume 9.3 9.0 - 12.0 fL [facility] Blood specimen (specimen) 09/16/2015 3:29 PM EDT 09/16/2015 3:29 PM EDT Narrative Resulting Agency Comment Spec In Lab Larry Larkin MD HEMATOLOGY ORDERABLE S [facility] [place] [address] * APTT (09/16/2015 3:29 PM EDT) Partial Thromboplastin Time 29 25 - 35 sec [facility] Comment: The recommended therapeutic range [...] MD HEMATOLOGY ORDERABLE S Performing Organization Address [facility] Co de Phone Number [facility] [place] [address] * Prothrombin Time (09/16/2015 3:29 PM EDT) Prothrombin Time 14.3 12.0 - 15.0 sec [facility] Comment: An [...] International Normalization Ratio 1.1 0.9 - 1.1 [facility] Blood specimen (specimen) 09/16/2015 3:29 PM EDT 09/16/2015 3:29 PM EDT Narrative Resulting Agency Comment Spec In Lab Larry Larkin MD HEMATOLOGY ORDERABLE S Performing Organization Address [facility] Co de Phone Number [facility] [place] [address] * (ABNORMAL) Comprehensive metabolic panel (non-fasting) (09/16/2015 3:29 PM EDT) Glucose 148 65 - 199 mg/dL [facility] Comment:Diabetes: >=200 mg/d L plus symptoms Blood Urea Nitrogen 45(H) 10 - 20 mg/dL [facility] Creatinine 6.99(H) 0.80 - 1.50 mg/dL [facility] Comment: Please note that the pediatric reference intervals supplied above were not validated at [facility]. Results from pediatric patients should be interpreted in conjunction to the patient's age, height and muscle mass. Sodium 136 135 - 145 mmol/L [facility] Potassium 5.0 3.5 - 5.0 mmol/L [facility] mmol/L [facility] Calcium 8.3(L) 8.5 - 10.5 mg/dL [facility] Comment:result rechecked-DANITZA Protein, Total 6.7 6.1 - 8.0 gm/dL [facility] Albumin 3.3 3.2 - 5.2 gm/dL [facility] Aspartate Aminotransferase 19 0 - 39 unit/L [facility] Alanine Aminotransferase 18 0 - 55 unit/L [facility] Alkaline Phosphatase 59 40 - 120 unit/L [facility] Bilirubin, Total 0.9 0.2 - 1.3 mg/dL [facility] Bilirubin, Direct 0.2 0.0 - 0.3 mg/dL [facility] Est Glomerular Filtration Rate 8(L) >=60 [facility] Comment: [...] the following links into your internet browser. [email or web address] Blood specimen (specimen) 09/16/2015 3:29 PM EDT 09/16/2015 3:29 PM EDT Narrative Resulting Agency Comment Spec In Lab Larry Larkin MD CHEMISTRY ORDERABLES Performing Organization Address [facility] Co de Phone Number [facility] [place] [address] * Magnesium (09/16/2015 3:29 PM EDT) Pathologist [facility] Magnesium 0.75 0.69 - 1.07 mmol/L [facility] Blood specimen (specimen) 09/16/2015 3:29 PM EDT 09/16/2015 3:29 PM EDT Narrative Resulting Agency Comment Spec In Lab Larry Larkin MD CHEMISTRY ORDERABLES Performing Organization Address [facility] de Phone Number [facility] [place] [address] * POCT Glucose (09/16/2015 3:12 PM EDT) [facility] Glucose, POC 125 65 - 199 mg/dL [facility] Comment: Supplemental ranges: <140 mg/dL before meals <180 mg/dL all other times of the day Blood specimen (specimen) 09/16/2015 3:12 PM EDT 09/16/2015 3:12 PM EDT Larry Larkin MD POINT OF CARE TEST O RDERABLES Performing Organization Address [facility] Co de Phone Number [facility] [place] [address] * (ABNORMAL) BLOOD GAS 2 ARTERIAL (09/16/2015 2:02 PM EDT) pH, Arterial 7.37 7.35 - 7.45 [facility] PCO2, Arterial 43 35 - 45 mmHg [facility] PO2, Arterial 204(H) 85 - 104 mmHg [facility] Bicarbonate, Arterial 24.1 20.0 - 26.0 mmol/L [facility] Base Excess, Arterial -1.1 -3.0 - 3.0 mmol/L [facility] Hgb Blood Gas 11.4(L) 13.7 - 17.5 gm/dL [facility] Oxyhemoglobin, Arterial 98.8(H) 94.0 - 97.0 % [facility] Carboxyhemoglob in, Arterial 0.2 % [facility] Comment: Nonsmokers: 0.5-1.5% COHB Smokers: Variable, but usually less than 10% Toxic: 20-30% COHB Lethal: Greater than 60% COHB Methemoglobin, Arterial 0.3 <=1.5 % [facility] Na Whole Blood 135 135 - 145 mmol/L [facility] K Whole Blood 4.8 3.5 - 5.0 mmol/L [facility] Comment: Please note: Patients with WBC >100,000 may have falsely elevated Potassium levels. Contact the Clinical Chemistry Laboratory if there are any questions. ICa Whole Blood 1.08(L) 1.15 - 1.33 mmol/L [facility] Comment: Note: ??Total bilirubin higher than 20 mg/dL may lead to falsely low ionized calcium. CL Whole Blood 102 98 - 107 mmol/L [facility] Gluc Whole Bld 135 65 - 199 mg/dL [facility] Comment:Diabetes: >=200 mg/d L plus symptoms. Blood specimen (specimen) 09/16/2015 2:02 PM EDT 09/16/2015 2:02 PM EDT Larry Larkin MD POINT OF CARE TEST O RDERABLES [facility] [place] [address] * CMV Antibody, IgG (09/16/2015 10:28 AM EDT) CMV IgG Neg Neg [facility] Blood specimen (specimen) 09/16/2015 10:28 AM EDT 09/17/2015 7:28 AM EDT Narrative Resulting Agency Comment Spec In Lab Larry Larkin MD IMMUNOLOGY ORDERABLE S [facility] [place] [address] * EKG 12 Lead (09/16/2015 10:10 AM EDT) Ventricular rate 60 BPM MUSE SYSTEM Atrial Rate 60 BPM MUSE SYSTEM P-R Interval 184 ms MUSE SYSTEM QRS Duration 110 ms MUSE SYSTEM Q-T Interval 476 ms MUSE SYSTEM QTC Calculated (Bezet) 476 ms MUSE SYSTEM Calculated P Pike -14 degrees MUSE SYSTEM Calculated R Pike -44 degrees MUSE SYSTEM Calculated T Pike -26 degrees MUSE SYSTEM INTERPRETATION Sinus rhythm [...] 10:08 AM EDT) Neutrophil % 65.2 % [facility] Neutrophil Absolute 4.72 1.50 - 6.30 x10(3)/[facility] Lymph % 20.3 % [facility] Lymphocytes Abs 1.5 1.0 - 3.6 x10(3)/[facility] Monocyte % 8.1 % [facility] Monocyte Abs 0.6 0.2 - 1.0 x10(3)/[facility] Eos % 5.4 % [facility] Eosinophils Abs 0.4 0.0 - 0.5 x10(3)/[facility] Basophil % 0.7 % [facility] Baso Absolute 0.0 0.0 - 0.2 x10(3)/[facility] Immature Gran % 0.30 % [facility] Comment: Immature granulocytes(IG's)percentage and absolute count will include metamyelocytes, myelocytes, and promyelocytes. Blood smears from CBCs yielding IG's will be scanned manually for concordance. If this scan disagrees with the automated IG or if promyelocytes are noted, a manual differential will be performed. Immature Gran Absolute 0.02 0.00 - 0.05 x10(3)/[facility] Blood specimen (specimen) 09/16/2015 10:08 AM EDT 09/16/2015 10:23 AM EDT Narrative Resulting Agency Comment Spec In Lab Larry Larkin MD HEMATOLOGY ORDERABLE S [facility] [place] [address] * (ABNORMAL) Hemogram (09/16/2015 10:08 AM EDT) White Blood Cell 7.2 4.0 - 10.0 x10(3)/mc L [facility] Red Blood Cell 3.83(L) 4.63 - 6.08 x10(6)/mc L [facility] Hemoglobin 12.1(L) 13.7 - 17.5 gm/dL [facility] Hematocrit 35.8(L) 40.0 - 51.0 % [facility] Mean Cell Volume 93.5(H) 79.0 - 92.0 fL [facility] Mean Cell Hemoglobin 31.6 25.6 - 32.2 pg [facility] Mean Cell Hemoglobin Concentration 33.8 32.0 - 36.5 gm/dL [facility] Platelet 231 145 - 370 x10(3)/mc L [facility] RDW Standard Deviation 47.3(H) 35.0 - 46.0 fL [facility] RDW coefficient of variation 13.9 10.9 - 14.4 % [facility] Mean Platelet Volume 9.4 9.0 - 12.0 fL [facility] Blood specimen (specimen) 09/16/2015 10:08 AM EDT 09/16/2015 10:23 AM EDT Narrative Resulting Agency Comment Spec In Lab Larry Larkin MD HEMATOLOGY ORDERABLE S [facility] [place] [address] * Antibody screen (09/16/2015 10:08 AM EDT) Ab Screen Interp Negative [facility] Expires at [id number] on: 09/19/2015 [facility] Blood specimen (specimen) 09/16/2015 10:08 AM EDT 09/16/2015 10:17 AM EDT Narrative Resulting Agency Comment Spec In Lab Larry Larkin MD BLOOD BANK LAB ORDER IGNACIO Performing Organization Address City/[facility]/ZIP Co de Phone Number [facility] [place] [address] * ABO/Rh Typing (09/16/2015 10:08 AM EDT) ABORH Type AB Pos [facility] Blood specimen (specimen) 09/16/2015 10:08 AM EDT 09/16/2015 10:17 AM EDT Narrative Resulting Agency Comment Spec In Lab Larry Larkin MD BLOOD BANK LAB ORDER IGNACIO [facility] [place] [address] * APTT (09/16/2015 10:08 AM EDT) Partial Thromboplastin Time 28 25 - 35 sec [facility] Comment: The recommended therapeutic range [...] MD HEMATOLOGY ORDERABLE S Performing Organization Address [facility] Co de Phone Number [facility] [place] [address] * Prothrombin Time (09/16/2015 10:08 AM EDT) Prothrombin Time 14.0 12.0 - 15.0 sec [facility] Comment: An [...] International Normalization Ratio 1.1 0.9 - 1.1 [facility] Blood specimen (specimen) 09/16/2015 10:08 AM EDT 09/16/2015 10:23 AM EDT Narrative Resulting Agency Comment Spec In Lab Larry Larkin MD HEMATOLOGY ORDERABLE S Performing Organization Address [facility] Co de Phone Number [facility] [place] [address] * (ABNORMAL) Phosphorus (09/16/2015 10:08 AM EDT) Phosphorus 5.0(H) 2.5 - 4.5 mg/dL [facility] Blood specimen (specimen) 09/16/2015 10:08 AM EDT 09/16/2015 10:23 AM EDT Narrative Resulting Agency Comment Spec In Lab Larry Larkin MD CHEMISTRY ORDERABLES Performing Organization Address City/[facility]/ZIP Co de Phone Number [facility] [place] [address] * Magnesium (09/16/2015 10:08 AM EDT) Pathologist [facility] Magnesium 0.83 0.69 - 1.07 mmol/L [facility] Blood specimen (specimen) 09/16/2015 10:08 AM EDT 09/16/2015 10:23 AM EDT Narrative Resulting Agency Comment Spec In Lab Larry Larkin MD CHEMISTRY ORDERABLES Performing Organization Address [facility] Co de Phone Number [facility] [place] [address] * (ABNORMAL) Comprehensive metabolic panel (non-fasting) (09/16/2015 10:08 AM EDT) Pathologist [facility] Glucose 127 65 - 199 mg/dL [facility] Comment:Diabetes: >=200 mg/d L plus symptoms Blood Urea Nitrogen 44(H) 10 - 20 mg/dL [facility] Creatinine 7.50(H) 0.80 - 1.50 mg/dL [facility] Carbon Dioxide 28 22 - 31 mmol/L [facility] Anion Gap 15 5 - 15 mmol/L [facility] Calcium 9.4 8.5 - 10.5 mg/dL [facility] Protein, Total 7.4 6.1 - 8.0 gm/dL [facility] Albumin 3.8 3.2 - 5.2 gm/dL [facility] Aspartate Aminotransferase 15 0 - 39 unit/L [facility] Alanine Aminotransferase 18 0 - 55 unit/L [facility] Alkaline Phosphatase 65 40 - 120 unit/L [facility] Bilirubin, Total 0.9 0.2 - 1.3 mg/dL [facility] Bilirubin, Direct 0.1 0.0 - 0.3 mg/dL [facility] Est Glomerular Filtration Rate 7(L) >=60 [facility] Comment: [...] the following links into your internet browser. [email or web address] Blood specimen (specimen) 09/16/2015 10:08 AM EDT 09/16/2015 10:23 AM EDT Narrative Resulting Agency Comment Spec In Lab Larry Larkin MD CHEMISTRY ORDERABLES [facility] [place] [address] documented in this encounter Visit Diagnoses Not [...] RN)212 (Given - Provider: Keyana Moy RN) 0825 [...] Therese Carpio RN - Comment: Given by OCCUPATIONAL HEALTH COORDINATOR.) carvedilol (COREG) tablet 12.5 mg (CANCELED) 12.5 mg, Oral, DAILY WITH DINNER, First dose on 09/18/15 at 1700, Until Discontinued, Routine 1735 (Given - Provider: Pauline Miles RN) 1647 (Given - Provider: Tamela Mckeon RN) cefTRIAXone (ROCEPHIN) 2 g vial attach to [...] Miles RN) 1719 (Given - Provider: Tamela Mckeon RN) cefTRIAXone (ROCEPHIN) 2 g vial attach to [...] Therese Carpio RN - Comment: Given by OCCUPATIONAL HEALTH COORDINATOR.) magnesium oxide (MAG-OX) tablet 400 mg (CANCELED) 400 mg, Oral, 2 TIMES DAILY, First dose on Thu09/18/15 at 0900, Until Discontinued, Routine 09 (Given - Provider: Sonu Lara, RN)2117 (Given - Provider: Keyana Moy RN) 825 (Given - Provider: Tamela Mckeon RN)2056 (Given - Provider: Margarette Mota RN) 830 (Given - Provider: Pauline Miles RN) [...] 30 minutes prior to administration of thymoglobulin. 44 (Given - Provider: Sonu Lara, JADEN) mycophenolate [...] Mckeon, JADEN) 0831 (Given - Provider: Pauline Miles RN) [...] Therese Carpio, JADEN)1446 (Given - Provider: Therese Carpio RN) ipratropium-albuterol [...] JADEN)1319 (See Alternative - Provider: Tamela Mckeon RN)2002 (See Alternative - Provider: Margarette Mota, JADEN)2346 [...] Lara, JADEN) 0845 (Given - Provider: Tamela Mkceon, RN)1319 (Given - Provider: Tamela Mckeon, RN [...] Routine documented in this encounter Care Teams Yarn Inspector Relationship Specialty Start Date End Date Albania Nunez DO [address] [place] [address] PCP - General 09/03/12 03/17/22 Ruchi Valles RN Nurse Clinic Transplant Surgery 07/30/15 documented as of this encounter
--- OUTSIDE RECORDS SUMMARY | 2024-05-16 17:40 | XMS_ITS | Encounter Summary ---
Author Organization [facility] [place] [address] Care Team Providers Care Supervisor Heat Treating Name Role Phone AdeelUrbano toscano Primary Care Provider Encounter Details Date Type Department Care Team (Late st Contact Info) Description 07/17/2015 External Results Solid [place] [address] Aurora Kessler Social History Tobacco [...] AM EST Visit (TeleHealth) Cardiology at [address] [phone] Byron Brown MD [facility] [place] [address] 07/14/2024 10:00 AM EST Hospital Encounter Non-[place] [address] Arrived documented as of this [...] NEGATIVE RPR (ARU) NEGATIVE HCV Viral Load 088809 IU/ML HCV Viral Load 5.7 12/21/2014 Historical Provider CHEMISTRY ORDERAB LES documented in this encounter Visit Diagnoses Not on filedocumented in this encounter Care Teams Supervisor Heat Treating Relationship Specialty Start Date End Date Urbano Denis DO [address] [place] [address] PCP - General 09/03/12 03/17/22 documented as of this encounter
--- OUTSIDE RECORDS SUMMARY | 2024-05-16 17:40 | XMS_ITS | Encounter Summary ---
[place] [address] Care Team Providers Care Labor Representative Name Role Phone Albania Denis DO Primary Care Provider [phone] Reason for Referral * Diagnostic Test (Routine) - Closed Specialty Diagnoses / Procedures Referred By Contac t Referred To Contact Radiology Diagnoses ESRD (end stage renal disease) Procedures IR a/v fistula evaluations Jomar Franco MD [facility] [place] [address] [place] [address] Referral ID Status Reason Start Date Expiration Date V isits Requested Visits Authorized [id number] Closed Specialty Service Requested 07/30/2015 07/29/2016 1 1 Reason for Visit * Diagnostic Test (Routine) - Closed Specialty Diagnoses / Procedures Referred By Contac t Referred To Contact Radiology Diagnoses ESRD (end stage renal disease) Procedures IR a/v fistula evaluations Jomar Franco MD [facility] [place] [address] [place] [address] Referral ID Status Reason Start Date Expiration Date V isits Requested Visits Authorized [id number] Closed Specialty Service Requested 07/30/2015 07/29/2016 1 1 Encounter Details Date Type Department Care Team (Latest Contact Info) Description 07/31/2015 7:13 AM EST - 07/31/2015 11:59 PM EST Hospital Encounter Radiology at [facility] [place] [address] [facility] [place] [address] ESRD (end stage renal disease) Discharge Disposition: [...] Tomlin RN - 07/31/2015 9:04 AM EST [facility] Vascular and Interventional Radiology Discharge Instructions after [...] is during regular office hours, please call [phone]. If it is after regular office hours, or on weekends or holidays, please call [phone] and ask to speak to the Air[employer] fashion design professor for Interventional Radiology. You have received medication [...] visible) Gibson Avelar MD VIR Fellow Pager #[phone] * Huyen Mariano RN - 07/30/2015 1:52 PM EST ANGIO/VIR NURSING DATABASE Name: ETHEL AKINS Date of : 1950 AGE 64 y.o. Address: [address] [place] [phone] (home) [phone] (work) Mobile: Telephone Information: Referring Provider: Jomar [...] EXTREMITY performed by Que Amaro MD at [facility] MAIN OR Date/Procedure? Med's given/comments 01/08/2015: [...] informed this patient that they require a cement mixer driver to be present and in the building to drive them home after this procedure. In the absence of a cement mixer driver, IR will not be able to perform this procedure and will need to reschedule. Pt verbalized understanding of these i nstructions during the pre-procedure education via phone. (initials) documented in this encounter Plan of Treatment Upcoming Encounters Date Type Department Care Team (Late st Contact Info) Description 06/22/2024 11:00 AM EST TH Visit (TeleHealth) Cardiology at [address] [address] [facility] [place] [address] 07/14/2024 10:00 AM EST Hospital Encounter [place] [address] Arrived documented as of this encounter Procedures [...] by US. Fellow: Gibson Avelar MD (pager #[phone]) Attending: Jade Nelson MD ?? (I was present and scrubbed for the entire procedure) Jomar Franco MD IMG IR ORDERABLES * POCT Glucose (07/31/2015 7:28 AM EST) [facility] Glucose, POC 112 65 - 199 mg/dL [facility] Comment: Supplemental ranges: <140 mg/dL before meals <180 mg/dL all other times of the day Blood specimen (specimen) 07/31/2015 7:28 AM EST 07/31/2015 7:28 AM EST Jomar Franco MD POINT OF CARE TEST ORDERABLES [facility] documented in this encounter Visit Diagnoses [...] mg documented in this encounter Care Teams Labor Representative Relationship Specialty Start Date End Date Albania Denis DO [address] [place] [address] PCP - General 09/03/12 03/17/22 Ruchi Valles RN Nurse Clinic Transplant Surgery 07/30/15 documented as of this encounter
--- OUTSIDE RECORDS SUMMARY | 2024-05-16 17:40 | XMS_ITS | Encounter Summary ---
Author Organization [facility] [address] Care Team Providers Care Manager Respiratory Care Name Role Phone AdeelUrbano toscano Primary Care Provider Encounter Details Date Type Department Care Team (Late st Contact Info) Description 05/15/2015 External Results [place] [phone] Tulio Marcelo MD [facility] DR GASTROENTEROLOGY DEPT. [place], [place] [id number] Social History Tobacco Use Types Packs/Day Years [...] EST TH Visit (TeleHealth) Cardiology at [address] [phone] Byron Brown MD [facility] [place] [address] 07/14/2024 10:00 AM EST Hospital Encounter Non[place] [address] Arrived documented as of this encounter Procedures [...] Ratio 1.0 0.9 - 1.1 Historical Provider EXTERNAL LAB ROCHEL[address] JENNINGS documented in this encounter Visit Diagnoses Not on filedocumented in this encounter Care Teams Manager Respiratory Care Relationship Specialty Start Date End Date Urbano Denis DO [address] [place] [address] PCP - General 09/03/12 03/17/22 documented as of this encounter
--- OUTSIDE RECORDS SUMMARY | 2024-05-16 17:40 | XMS_ITS | Encounter Summary ---
Author Organization [facility] Address [facility] [place] [address] Care Team Providers Care Machines Technician Name Role Phone Albania Denis DO Primary Care Provider [phone] Reason for Visit * Reason Comments GI Problem Encounter Details Date Type Department Care Team (Late st Contact Info) Description 05/16/2015 3:00 PM EST Office Visit [place] [address] Tulio Marcelo MD [facility] DR [place] [address] Chronic hepatitis C without hepatic coma; Hepatitis [...] Marcelo MD - 05/16/2015 3:26 PM EST [facility] NEW HEPATOLOGY EVALUATION Patient: Cody Bolden Date of : 1950 BRAND COMMUNICATIONS MANAGER: Tulio Marcelo MD PCP: ALBANIA DENIS DO [...] nasal drugs (-) Tattoos? (-) service (+) [phone], airgun vaccines Blood Transfusions (-) Close contact with Hepatitis Relationship (+) cousan [phone]. never tested FAMILY HISTORY Negative except as [...] with sexual activity Decreased desire for sexual [place] History of Sexually Transmitted Disease Urinating more [...] Results Component Value Date INR 1.0 05/11/2015 [facility] Hepatology Fibrosis Assessment 05/16/2015 Liver disease diagnosis: HCV, NAFLD Procedure: Vibration Controlled Transient Elastography (VCTE) or Fibroscan [place] Protocol: Patient's identity, procedure and site were [...] Marcelo MD Section of Gastroenterology and Hepatology [facility] [place] [id number] V: [phone] F: [phone] Copy: ALBANIA DENIS DO d documented in this encounter Plan of Treatment Upcoming Encounters Date Type Department Care Team (Late st Contact Info) Description 06/22/2024 11:00 AM EST TH Visit (TeleHealth) Cardiology at [address] [address] Byron Brown MD [facility] [place] [address] 07/14/2024 10:00 AM EST Hospital Encounter Non-[place] [address] Arrived Pending Results Name Type Priority Associated [...] Fibrosis Panel (05/16/2015 4:33 PM EST) Pathologist [facility] Liver Fibrosis Panel FLEXITEST 3(A) [facility] Comment: FLEXITEST 3 TESTS RESULTS--------UNITS--REF. RANGE--- Fibrosis [...] 0.61-0.62 ?A2-A3 0.63-1.00 ?A3 ? severe activity Xjeos-2-Ppyubwoqfhvyp ? 124 ?mg/dL ??106-279 Haptoglobin ?95 ?mg/dL ??43-212 Apolipoprotein A1 ?49 L ?mg/dL ??94-176 This value is very low, under the 1 percentile. Check the value. Usual minimum value is 56.0 mg/dl. Total Bilirubin ? 1.0 ?mg/dL ??0.2-1.2 GGT ?26 ?U/L ??3- 70 ALT ?15 ?U/L ??9- 46 Reference ID ?[id number] Footnote ?SEE NOTE The reliability of results is dependent on compliance with the preanalytical and analytical conditions recommended by [employer]. The tests have to be deferred for: [...] The performance characteristics have been determined by [facility]. It has not been cleared or approved by the U.S. Food and Drug Administration. Performance characteristics refer to the analytical performance of the test. mParticle, the associated logo, [employer] and all associated [employer] jacobsen are the registered trademarks of [employer]. All third republican jacobsen - (R) and (TM) - are the property of their respective owners. (C) [id number] Writer.ly. All rights reserved. Test performed by: ? [employer] ? [address] [facility] ? [place] [address] ? Phone: ??[phone] Director: ??Tanmay Huggins M.D. Test Reported by [facility] [employer], [address] [place], [place] Fer Stoll M.D., Ph.D., Director of Laboratories , [facility] [id number] Blood specimen (specimen) Venous Draw / Unknown 05/16/2015 4:33 PM EST 05/17/2015 7:56 AM EST Narrative Resulting Agency Comment Spec In Lab Tulio Marcelo MD LAB SEND OUT SUNIA [facility] documented in this encounter Visit Diagnoses Diagnosis Chronic hepatitis C without hepatic coma Hepatitis C virus infection without hepatic coma, unspecified chronicity documented in this encounter Care Teams Machines Technician Relationship Specialty Start Date End Date Albania Denis DO [address] [place] [address] PCP - General 09/03/12 03/17/22 Ruchi Valles RN Nurse Clinic Transplant Surgery 07/30/15 documented as of this encounter
--- OUTSIDE RECORDS SUMMARY | 2024-05-16 17:40 | XMS_ITS | Encounter Summary ---
Author Organization [facility] [place] [address] Care Team Providers Care Telephone Operator Name Role Phone AdeelUrbano toscano Primary Care Provider Encounter Details Date Type Department Care Team (Late st Contact Info) Description 05/04/2015 Orders [place] [address] Tulio Marcelo MD [facility] [place] [address] Chronic hepatitis C without hepatic coma Social [...] EST TH Visit (TeleHealth) Cardiology at [address] [phone] Byron Brown MD [facility] [place] [address] 07/14/2024 10:00 AM EST Hospital Encounter Non-[place] [address] Arrived documented as of this encounter Results * Miscellaneous Lab request (05/16/2015 4:33 PM EST) Label Request received in lab. [facility] Blood specimen (specimen) 05/16/2015 4:33 PM EST 05/16/2015 4:57 PM EST Narrative Resulting Agency Comment Spec In Lab Tulio Marcelo MD LAB SEND OUT ORDERA BLES Performing Organization Address [facility] Co de Phone Number [facility] * Hepatitis C RNA, quantitative, PCR (05/16/2015 4:33 PM EST) HCV Viral Load 471,245 IU/mL [facility] HCV Viral Load Result: 068391 IU/mL Indication for Study: Hepatitis C Infection [...] Laboratory. Gibson Good, Ph.D. Director, Molecular Pathology [facility] Comment: [VERIFIED DATE]05.18.15 Verified By:Xiomy Gupta (Electronic Signature) Blood specimen (specimen) 05/16/2015 4:33 PM EST 05/18/2015 8:13 AM EST Narrative Resulting Agency Comment Spec In Lab Tulio Marcelo MD MOLECULAR ORDERABLE S Performing Organization Address [facility] Co de Phone Number [facility] * Prothrombin Time (05/16/2015 4:33 PM EST) Prothrombin Time 13.7 12.0 - 15.0 sec [facility] Comment: Transfusion Committee Guidelines: INR less than 2.0, PTT less than OR equal to 43.5 seconds, or Fibrinogen greater than or equal to 100 mg/dl indicate adequate procoagulant activity for hemostasis in patients without underlying bleeding disorders. International Normalization Ratio 1.0 0.9 - 1.1 [facility] Blood specimen (specimen) 05/16/2015 4:33 PM EST [...] MILLENNIUM Est Glomerular Filtration Rate 14(L) >=60 [facility] Comment: This estimated GFR (eGFR) value was [...] the following links into your internet browser. [email or web address] Blood specimen (specimen) 05/16/2015 4:33 PM EST 05/16/2015 4:57 PM EST Narrative Resulting Agency Comment Spec In Lab Tulio Marcelo MD CHEMISTRY ORDERABLE S [facility] documented in this encounter Visit Diagnoses Diagnosis Chronic hepatitis C without hepatic coma documented in this encounter Care Teams Telephone Operator Relationship Specialty Start Date End Date Urbano Denis DO [address] [place] [address] PCP - General 09/03/12 03/17/22 documented as of this encounter
--- OUTSIDE RECORDS SUMMARY | 2024-05-16 17:40 | XMS_ITS | Encounter Summary ---
Author Organization [facility] [place] [address] Care Team Providers Care Cyber Operator Name Role Phone AdeelUrbano boland Primary Care Provider Encounter Details Date Type Department Care Team (Late st Contact Info) Description 07/05/2015 Orders Only [place] [address] Ellen Foote RN Pre-transplant evaluation [...] EST TH Visit (TeleHealth) Cardiology at [address] [address] Byron Brown MD [facility] [place] [address] 07/14/2024 10:00 AM EST Hospital Encounter Non-[place]vasive [place] [address] Arrived documented as of this encounter Results * Cerebrovascular Duplex, Bilateral (07/17/2015 1:58 PM EST) VB Text Report Department: Vascular Surgery Lab Patient: [id number] (ETHEL AKINS) CPT: 04784 ICD10: N18.6;Z01.818 Referring Physician: MADHU PURI ?? [...] Text Report Department: Vascular Surgery Lab Patient: [id number] (ETHEL AKINS) CPT: 19289 ICD10: Z01.818;N18.6 Referring Physician: MADHU PURI ?? [...] MD VASCULAR ORDERABL ES Performing Organization Address [facility] de Phone Number [facility] * Varicella zoster Antibody, IgG (07/17/2015 1:44 PM EST) Varicella Zoster Antibody IgG Pos CERNER MILLENNIUM Blood specimen (specimen) 07/17/2015 1:44 PM EST 07/18/2015 7:56 AM EST Narrative Resulting Agency Comment Spec In Lab Madhu Puri MD IMMUNOLOGY ORDERA BLES Performing Organization Address City/[facility] Co de Phone Number CERNER MILLENNIUM * Toxoplasma Antibody, IgM (07/17/2015 1:44 PM EST) Toxoplasma Antibody IgM Neg Neg CERNER MILLENNIUM Blood specimen (specimen) 07/17/2015 1:44 PM EST 07/18/2015 7:56 AM EST Narrative Resulting Agency Comment Spec In Lab Madhu Puri MD IMMUNOLOGY ORDERA BLECathy Performing Organization Address [facility] Co de Phone Number CERNER DANELLEENNIUM * Toxoplasma Antibody, IgG (07/17/2015 1:44 PM EST) Toxoplasma Antibody IgG Neg Neg CERNER MILLENNIUM Blood specimen (specimen) 07/17/2015 1:44 PM EST 07/18/2015 7:56 AM EST Narrative Resulting Agency Comment Spec In Lab Madhu Puri MD IMMUNOLOGY ORDERA BG Performing Organization Address [facility] Co de Phone Number CERNER DANELLEENNIUM [...] MD IMMUNOLOGY ORDERA BLES Performing Organization Address [facility] de Phone Number CERROSALINA MCCLENDONENNIUM * (ABNORMAL) Brennan-Schreiber Virus Antibodies (07/17/2015 [...] MD IMMUNOLOGY ORDERA BLES Performing Organization Address City/State/[facility] [place] Phone Number [facility] documented in this encounter Visit Diagnoses Diagnosis Pre-transplant evaluation for kidney transplant Other specified pre-operative examination End stage renal disease documented in this encounter Care Teams Cyber Operator Relationship Specialty Start Date End Date Urbano Denis DO [address] [place] [address] [address] [place] [address] PCP - General 09/03/12 03/17/22 documented as of this encounter
--- OUTSIDE RECORDS SUMMARY | 2024-05-16 17:40 | XMS_ITS | Encounter Summary ---
Author Organization [facility] [place] [address] Care Team Providers Care Elect Equip Maint Eng Name Role Phone Urbano Denis DO Primary Care Provider Encounter Details Date Type Department Care Team (Latest Contact Info) Description 07/17/2015 1:57 PM EST - 07/17/2015 11:59 PM [facility] Hospital [place] [address] Kitty Townsend RVT Pre-transplant evaluation for kidney [...] EST TH Visit (TeleHealth) Cardiology at [address] [address] Byron Brown MD [facility] [place] [address] 07/14/2024 10:00 AM EST Hospital Encounter Non-[place] [address] Arrived documented as of this encounter Procedures [...] Text Report Department: Vascular Surgery Lab Patient: [id number] (ETHEL AKINS) CPT: 64783 ICD10: N18.6;Z01.818 Referring Physician: TAL PURI ?? [...] Text Report Department: Vascular Surgery Lab Patient: [id number] (ETHEL AKINS) CPT: 47382 ICD10: Z01.818;N18.6 Referring Physician: TAL PURI ?? [...] disease documented in this encounter Care Teams Elect Equip Maint Eng Relationship Specialty Start Date End Date Urbano Denis DO [address] [place] [address] PCP - General 09/03/12 03/17/22 documented as of this encounter
--- OUTSIDE RECORDS SUMMARY | 2024-05-16 17:40 | XMS_ITS | Encounter Summary ---
Author Organization [facility] [place] [address] Care Team Providers Care General Road Foreman Name Role Phone AdeelUrbano toscano Primary Care Provider Encounter Details Date Type Department Care Team (Late st Contact Info) Description 07/16/2015 External Results [place] [address] Social History Tobacco Use Types [...] EST TH Visit (TeleHealth) Cardiology at [address] [phone] Byron Brown MD [facility] [place] [address] 07/14/2024 10:00 AM EST Hospital Encounter Non[place] [address] Arrived documented as of this encounter Procedures [...] filedocumented in this encounter Care Teams General Road Foreman Relationship Specialty Start Date End Date Urbano Denis DO [address] [place] [address] PCP - General 09/03/12 03/17/22 documented as of this encounter
--- OUTSIDE RECORDS SUMMARY | 2024-05-16 17:40 | XMS_ITS | Encounter Summary ---
Author Organization [facility] [place] [address] Care Team Providers Care Getter Filler Name Role Phone AdeelUrbano boland Primary Care Provider Encounter Details Date Type Department Care Team (Late st Contact Info) Description 07/26/2015 External Results [place] [address] Social History Tobacco Use Types [...] EST TH Visit (TeleHealth) Cardiology at [address] [phone] Byron Brown MD [facility] [place] [address] 07/14/2024 10:00 AM EST Hospital Encounter Non-[place] [address] Arrived documented as of this encounter Procedures Procedure Name Priority Date/Time Associated Diagnosis Comments [facility] KIDNEY INITIAL - RECIPIENT Routine 07/20/2015 documented in this encounter Results * Transplant: Kidney Initial (Recipient) - EXTERNAL collections (07/20/2015) Historical Provider EXTERNAL LAB ROCHELLE JENNINGS documented in this encounter Visit Diagnoses Not on filedocumented in this encounter Care Teams Getter Filler Relationship Specialty Start Date End Date Urbano Denis DO [address] [place] [address] PCP - General 09/03/12 03/17/22 documented as of this encounter
--- OUTSIDE RECORDS SUMMARY | 2024-05-16 17:40 | XMS_ITS | Encounter Summary ---
Author Organization Formerly [facility] [place] [address] Care Team Providers Care Management Trainer Name Role Phone AdeelUrbano boland Primary Care Provider Encounter Details Date Type Department Care Team (Late st Contact Info) Description 09/07/2015 Abstract [place] [address] Ellen Foote, RN Social History Tobacco Use Types Packs/Day [...] 11:00 AM EST Visit (TeleHealth) Cardiology at [address] [phone] Byron Brown MD [place] [address] 07/14/2024 10:00 AM EST Hospital Encounter Non-Invasive [place] [address] Arrived documented as of this encounter Visit Diagnoses Not on filedocumented in this encounter Care Teams Management Trainer Relationship Specialty Start Date End Date Urbano Denis DO [address] [place] [address] PCP - General 09/03/12 03/17/22 Ruchi Valles RN Nurse Clinic Transplant Surgery 07/30/15 documented as of this encounter
--- OUTSIDE RECORDS SUMMARY | 2024-05-16 17:40 | XMS_ITS | Encounter Summary ---
Author Organization Formerly [facility] [place] [address] Care Team Providers Care Bareback Rider Name Role Phone AdeelUrbano toscano Primary Care Provider Encounter Details Date Type Department Care Team (Late st Contact Info) Description 07/31/2015 Orders Only [place] [address] Ellen Foote RN Pre-transplant evaluation [...] EST TH Visit (TeleHealth) Cardiology at [address] [address] Byron Brown MD [facility] [place] [address] 07/14/2024 10:00 AM EST Hospital Encounter Non-[place] [address] Arrived documented as of this encounter Visit Diagnoses Diagnosis Pre-transplant evaluation for kidney transplant Other specified pre-operative examination documented in this encounter Care Teams Bareback Rider Relationship Specialty Start Date End Date Urbano Denis DO [address] [place] [address] [address] [facility] 1 [place] [address] PCP - General 09/03/12 03/17/22 Ruchi Valles RN Nurse Clinic Transplant Surgery 07/30/15 documented as of this encounter
--- OUTSIDE RECORDS SUMMARY | 2024-05-16 17:41 | XMS_ITS | Encounter Summary ---
Author Organization [facility] [place] [address] Care Team Providers Care Cone Cleaner Name Role Phone AdeelUrbano boland Primary Care Provider [phone] Encounter Details Date Type Department Care Team (Late st Contact Info) Description 01/16/2015 [place] [phone] Que Amaro MD [facility] [place] [address] ESRD (end stage renal disease) [...] EST TH Visit (TeleHealth) Cardiology at [address] [address] Byron Brown MD [facility] [place] [address] 07/14/2024 10:00 AM EST Hospital Encounter Non-Invasive [place] [address] Arrived documented as of this encounter Visit Diagnoses Diagnosis ESRD (end stage renal disease) End stage renal disease documented in this encounter Care Teams Cone Cleaner Relationship Specialty Start Date End Date Urbano Denis DO [address] [facility] [address] [facility] 1 [place] [address] PCP - General 09/03/12 03/17/22 documented as of this encounter
--- OUTSIDE RECORDS SUMMARY | 2024-05-16 17:41 | XMS_ITS | Encounter Summary ---
Author Organization [facility] [place] [address] Care Team Providers Care Business Operations Analyst Name Role Phone [place] Denis DO Primary Care Provider Encounter Details Date Type Department Care Team (Late st Contact Info) Description 10/27/2013 10:00 AM EDT Follow-Up Neph[place] [address] CLINIC, [place] Milian MD [facility] [place] [address] CKD (chronic kidney disease) stage 3, GFR [...] 10:05 AM EDT Nephrology/Hypertension Clinic Follow-up Note [id number] ID: 63 y.o.year-old male for follow up [...] EST TH Visit (TeleHealth) Cardiology at [address] [address] Byron Brown MD [facility] [place] [address] 07/14/2024 10:00 AM EST Hospital Encounter Non[place] [address] Arrived documented as of this [...] Urine Dipstick Hazy(A) Clear CERNER MILLENNIUM Specific [place] Urine Automated 1.015 1.002 - 1.030 CERNER MILLENNIUM Color, Urine Dipstick Yellow Yellow CERNER MILLENNIUM Urine specimen (specimen) URINE SPECIMEN OBTAINED BY CLEAN CATCH PROCEDURE / Unknown 05/22/2014 10:16 AM EST 05/22/2014 10:25 AM EST Narrative Resulting Agency Comment Spec In Lab [place] Loya MD URINE ORDERABLES [facility] MARYVALEROSALINA PEACOCKIUM * Cholesterol, total (05/22/2014 10:13 AM EST) Cholesterol, Total 166 <=199 mg/dL [facility] DANELLEBANNERIUM Comment: Recommendations of the NCEP Adult Treatment Panel for the following risk cutoff thresholds for the [place] population: Desirable: <200 mg/dL Borderline High: 200-239 mg/dL High: > or = 240 mg/dL Blood specimen (specimen) 05/22/2014 10:13 AM EST 05/22/2014 10:22 AM EST Narrative Resulting Agency Comment Spec In Lab [place] Loya MD CHEMISTRY ORDERABLES Performing Organization Address City/[facility] Co de Phone Number BENEDICT PEACOCKIUM * Hemoglobin A1c (05/22/2014 10:13 AM EST) Hemoglobin A1c 5.6 <=5.6 % ADELINATN R [facility] BROWNWOODENNIUM Comment: Reference Range: 4.3 - 5.6% 5.7 [...] Mellitus, Diabetes Care 2013; 36: Suppl. 1, V97-83 Estimated Average Glucose 114 mg/dL [facility] Comment: eAG equivalents for HbA1c percentages: HbA1c(%) ?eAG(mg/dL) 6.0 ?126 6.5 ?140 7.0 ?154 7.5 ?169 8.0 ?183 8.5 ?197 9.0 ?212 9.5 ?226 10.0 ? 240 Limitations: The eAG calculation has not been validated on women, individuals below 18 years old and above 70 years old, and individuals with hemoglobinopathies. Additional resources are available on the ADA website: [email or web address] [email or web address] Harjeet MENDOSA, Chanel J, Philip R, et al. ??Translating the A1C assay into estimated average glucose values. ??Diabetes Care 2008:31(8):6032-5092. Blood specimen (specimen) 05/22/2014 10:13 AM EST 05/22/2014 10:22 AM EST Narrative Resulting Agency Comment Spec In Lab [place] Loya MD CHEMISTRY ORDERABLES Performing Organization Address [facility] de Phone Number [facility] * Phosphorus (05/22/2014 10:13 AM EST) Phosphorus 3.7 2.5 - 4.5 mg/dL [facility] Blood specimen (specimen) 05/22/2014 10:13 AM EST 05/22/2014 10:22 AM EST Narrative Resulting Agency Comment Spec In Lab [place] Loya MD CHEMISTRY ORDERABLES Performing Organization Address [facility] de Phone Number [facility] * Albumin Level (05/22/2014 10:13 AM [...] Loya MD CHEMISTRY ORDERABLES Performing Organization Address [facility] Co de Phone Number CERNER MILLENNIUM * (ABNORMAL) Basic Metabolic Panel (non-fasting) (05/22/2014 10:13 AM EST) Glucose 124 60 - 199 mg/dL CERNER MILLENNIUM Comment:Diabetes: >=200 mg/d L plus symptoms Blood Urea Nitrogen 48(H) 10 - 20 mg/dL CERNER MILLENNIUM Creatinine 3.19(H) 0.80 - 1.50 mg/dL CERNER MILLENNIUM Comment: Please note that the pediatric reference intervals supplied above were not validated at [facility]. Results from pediatric [...] the following links into your internet browser. [email or web address] Blood specimen (specimen) 05/22/2014 10:13 AM EST 05/22/2014 10:22 AM EST Narrative Resulting Agency Comment Spec In Lab [place] Loya MD CHEMISTRY ORDERABLES Performing Organization Address [facility] de Phone Number CERNER MILLENNIUM * [...] Loya MD URINE ORDERABLES Performing Organization Address [facility] Co de Phone Number CERNER MILLENNIUM [...] MILLENNIUM Monocyte Abs 0.5 0.2 - 1.0 x10(3)/[facility] CERNER MILLENNIUM Eos % 3.5 0.0 - 7.0 % CERNER MILLENNIUM Eosinophils Abs 0.3 0.0 - 0.5 x10(3)/[facility] CERNER MILLENNIUM Basophil % 0.7 0.0 - 2.0 % CERNER MILLENNIUM Baso Absolute 0.1 0.0 - 0.2 x10(3)/[facility] CERNER MILLENNIUM Immature Gran % 0.10 0.00 - 0.66 % CERNER MILLENNIUM Comment: Immature granulocytes(IG's)percentage and absolute count will include metamyelocytes, myelocytes, and promyelocytes. Blood smears from CBCs yielding IG's will be scanned manually for concordance. If this scan disagrees with the automated IG or if promyelocytes are noted, a manual differential will be performed. Immature Gran Absolute 0.01 0.00 - 0.05 x10(3)/[facility] BENEDICT MCCLENDONENNIUM Blood specimen (specimen) 10/27/2013 9:37 AM EDT 10/27/2013 9:45 AM EDT [place] Loya MD HEMATOLOGY ORDERABLE S B[facility] COOK * (ABNORMAL) Hemoglobin A1c (10/27/2013 9:37 AM EDT) Hemoglobin A1c 6.2(H) <=5.6 % SONJA Domenic MCCLENDONJACKIUM Comment: As of 2013 the methodology for [...] 1, S67-74 Estimated Average Glucose 131 mg/dL [facility] Comment: eAG equivalents for HbA1c percentages: [...] into estimated average glucose values. ??Diabetes Care 2008:31(8):6119-3630. Blood specimen (specimen) 10/27/2013 9:37 AM EDT 10/27/2013 9:45 AM EDT Narrative Resulting Agency Comment Spec In Lab [place] Loya MD CHEMISTRY ORDERABLES [facility] * (ABNORMAL) VIT D Total Evaluation (10/27/2013 9:37 AM EDT) Vitamin D Total 25 OH 20(L) 30 - 100 ng/mL [facility] Comment: Deficient <10 ng/mL Insufficient 10 [...] Loya MD CHEMISTRY ORDERABLES Performing Organization Address [facility] de Phone Number [facility] * Phosphorus (10/27/2013 9:37 AM EDT) Phosphorus 3.1 2.5 - 4.5 mg/dL [facility] Blood specimen (specimen) 10/27/2013 9:37 AM EDT 10/27/2013 9:45 AM EDT Narrative Resulting Agency Comment Spec In Lab [place] Loya MD CHEMISTRY ORDERABLES Performing Organization Address [facility] de Phone Number [facility] * Albumin Level (10/27/2013 9:37 AM EDT) Albumin 3.5 3.2 - 5.2 gm/dL [facility] Blood specimen (specimen) 10/27/2013 9:37 AM EDT 10/27/2013 9:45 AM EDT Narrative Resulting Agency Comment Spec In Lab [place] Loya MD CHEMISTRY ORDERABLES Performing Organization Address [facility] Co de Phone Number [facility] * (ABNORMAL) PTH (10/27/2013 9:37 AM EDT) Parathyroid Hormone 95(H) 15 - 65 pg/mL CERNER MILLENNIUM Blood specimen (specimen) 10/27/2013 9:37 AM EDT 10/27/2013 9:45 AM EDT Narrative Resulting Agency Comment Spec In Lab [place] Loya MD CHEMISTRY ORDERABLES CERROSALINA MCCLENDONENNIUM * CBC (with Diff) (10/27/2013 [...] [place] Loya MD HEMATOLOGY ORDERABLE S CERROSALINA MCCLENDONENNIUM * (ABNORMAL) Basic Metabolic Panel (non-fasting) (10/27/2013 9:37 AM EDT) Glucose 95 60 - 199 mg/dL CERNER MILLENNIUM Comment:Diabetes: >=200 mg/d L plus symptoms Blood Urea Nitrogen 39(H) 10 - 20 mg/dL CERNER MILLENNIUM Creatinine 2.05(H) 0.80 - 1.50 mg/dL CERNER MILLENNIUM Comment: Please note that the pediatric reference intervals supplied above were not validated at [facility]. Results from pediatric [...] [place] Loya MD CHEMISTRY ORDERABLES BENEDICT COOK documented [...] unspecified documented in this encounter Care Teams Business Operations Analyst Relationship Specialty Start Date End Date [place] Denis DO [address] [place] [address] PCP - General 09/03/12 03/17/22 documented as of this encounter
--- OUTSIDE RECORDS SUMMARY | 2024-05-16 17:41 | XMS_ITS | Encounter Summary ---
Author [facility] [place] [address] Care Team Providers Care Rivet Passer Name Role Phone Urbano Denis DO Primary Care Provider Encounter Details Date Type Department Care Team (Latest Contact Info) Description 10/27/2013 8:30 AM EDT - 10/27/2013 11:59 PM EDT Hospital En[place] [address] Hypertension; H/O hematuria; Proteinuria; DM type 2 [...] EST TH Visit (TeleHealth) Cardiology at [address] [phone] Byron Brown MD [facility] [place] [address] 07/14/2024 10:00 AM EST Hospital Encounter Non[place] [address] Arrived documented as of this encounter Procedures [...] 10/27/2013 10:25 am) Patient Info ID: ? [id number] ? : [birth year] (63 yrs) Name: ? ETHEL AKINS ? Visit Date: 10/27/2013 09:11 am Performed By Performed By: ?Leigha MCGRATH, Amanda Associate: ? Kameron Holloway MD Attending: ? Jewel GERBER, Preeti Sanford Referred By: ? URBANO LOYA MD Service(s) Provided URETRO - Retroperitoneal Complete - [id number] ? [id number] Indications 62 year old male with microhematuria [...] Final 10/27/2013 10:25 am) Patient Info ID: [id number] : [birth year] (63 yrs) Name: ETHEL AKINS Visit Date: 10/27/2013 09:11 am Performed By Performed By: Amanda Ahuja RDMS Associate: Kameron Holloway MD Attending: Preeti Holloway MD Referred By: URBANO LOYA MD Service(s) Provided URETRO - Retroperitoneal Complete - [id number] Indications 62 year old male with microhematuria [...] unspecified documented in this encounter Care Teams Rivet Passer Relationship Specialty Start Date End Date Urbano Denis DO [address] [place] [address] PCP - General 09/03/12 03/17/22 documented as of this encounter
--- OUTSIDE RECORDS SUMMARY | 2024-05-16 17:41 | XMS_ITS | Encounter Summary ---
Author Organization [facility] [place] [address] Care Team Providers Care Printer Helper Name Role Phone Urbano Denis DO Primary Care Provider Encounter Details Date Type Department Care Team (Late st Contact Info) Description 01/24/2015 Orders Only Nephrology [place] [address] Urbano Loya MD [facility] [place] [address] Social History Tobacco Use Types Packs/Day Years [...] AM EST Visit (TeleHealth) Cardiology at [address] [phone] Byron Brown MD [facility] [place] [address] 07/14/2024 10:00 AM EST Hospital Encounter Non[place] [address] Arrived documented as of this encounter Visit Diagnoses Not on filedocumented in this encounter Care Teams Printer Helper Relationship Specialty Start Date End Date Urbano Denis DO [address] [place] [address] PCP - General 09/03/12 03/17/22 documented as of this encounter
--- OUTSIDE RECORDS SUMMARY | 2024-05-16 17:41 | XMS_ITS | Encounter Summary ---
Author Organization [facility] [place] [address] Care Team Providers Care Cork Mixer Name Role Phone AdeelUrbano toscano Primary Care Provider [phone] Encounter Details Date Type Department Care Team (Late st Contact Info) Description 04/26/2014 Orders [place] [address] Joseph Cortés MD [facility] [place] [address] Social History Tobacco Use Types Packs/Day Years [...] EST TH Visit (TeleHealth) Cardiology at [address] [phone] Byron Brown MD [facility] [address] 07/14/2024 10:00 AM EST Hospital Encounter Non-[place] [address] Arrived documented as of this encounter Procedures [...] filedocumented in this encounter Care Teams Cork Mixer Relationship Specialty Start Date End Date Urbano Denis DO [address] [place] [address] PCP - General 09/03/12 03/17/22 documented as of this encounter
--- OUTSIDE RECORDS SUMMARY | 2024-05-16 17:41 | XMS_ITS | Encounter Summary ---
Author Organization [facility] [place] [address] Care Team Providers Care Morning Babysitter Name Role Phone Adeel Urbano KIRBY Primary Care Provider Reason for Visit * Reason Onset Date Comments Medication Refill 02/21/2014 Encounter Details Date Type Department Care Team (Late st Contact Info) Description 02/21/2014 Refill [place] [address] Urbano Loya MD [facility] [place] [address] Social History Tobacco Use Types Packs/Day Years [...] AM EST Visit (TeleHealth) Cardiology at [address] [phone] Byron Brown MD [facility] CARDIOLOGY [place], [place] [phone] 07/14/2024 10:00 AM EST Hospital Encounter Non-Invasive [place] [address] Arrived documented as of this encounter Visit Diagnoses Not on filedocumented in this encounter Care Teams Morning Babysitter Relationship Specialty Start Date End Date Urbano Denis DO [address] [facility] [address] [facility] 1 [place] [address] PCP - General 09/03/12 03/17/22 documented as of this encounter
--- OUTSIDE RECORDS SUMMARY | 2024-05-16 17:41 | XMS_ITS | Encounter Summary ---
Author Organization [facility] [place] [address] Care Team Providers Care Chronometer Assembler And Adjuster Name Role Phone AdeelUrbano boland Primary Care Provider [phone] Encounter Details Date Type Department Care Team (Late st Contact Info) Description 01/16/2015 Orders Only [place] [phone] Franko Larkin MD [facility] TRANSPLANT SURGERY [place], [place] [phone] ESRD (end stage renal disease) Social History [...] EST TH Visit (TeleHealth) Cardiology at [address] [phone] Byron Brown MD [facility] [place] [address] 07/14/2024 10:00 AM EST Hospital Encounter Non-[place] [address] Arrived documented as of this encounter Results * First Time Hemodialysis access (03/15/2015 7:37 AM EDT) VB Text Report Department: Vascular Surgery Lab Patient: [id number] (ETHEL AKINS) CPT Code: G0365 ICD-9: 585.6 [...] Franco MD VASCULAR ORDERABLES Performing Organization Address City/State/[facility] Co de Phone Number VASCUBASE documented in this encounter Visit Diagnoses Diagnosis ESRD (end stage renal disease) End stage renal disease documented in this encounter Care Teams Chronometer Assembler And Adjuster Relationship Specialty Start Date End Date Urbano Denis DO [address] [place] [address] PCP - General 09/03/12 03/17/22 documented as of this encounter
--- OUTSIDE RECORDS SUMMARY | 2024-05-16 17:41 | XMS_ITS | Encounter Summary ---
Author Organization [facility] [place] [place] [address] Care Team Providers Care Commercial Floor Covering Installer Name Role Phone Urbano Denis DO Primary Care Provider [phone] Encounter Details Date Type Department Care Team (Late st Contact Info) Description 03/27/2015 Notes Only [place] [address] Aurora Kessler Social History Tobacco Use Types [...] Primary Care Provider URBANO DENIS Dialysis Unit [facility] Dialysis Schedule MON, WED, FRI Work-up @ another Center? YES - [facility] Listed @ another Center NOT YET Patient have computer? Yes - Will complete questionnaire online REQUEST FOR RECORDS FAXED TO [facility]. REQUEST FOR RECORDS FAXED TO PCP. documented in this encounter Plan of Treatment Upcoming Encounters Date Type Department Care Team (Late st Contact Info) Description 06/22/2024 11:00 AM EST TH Visit (TeleHealth) Cardiology at [address] [address] Byron Brown MD [facility] [place] [address] 07/14/2024 10:00 AM EST Hospital Encounter Non-[place] [address] Arrived documented as of this encounter Visit Diagnoses Not on filedocumented in this encounter Care Teams Commercial Floor Covering Installer Relationship Specialty Start Date End Date Urbano Denis DO [address] [facility] [place] [address] PCP - General 09/03/12 03/17/22 documented as of this encounter
--- OUTSIDE RECORDS SUMMARY | 2024-05-16 17:41 | XMS_ITS | Encounter Summary ---
Author Organization [facility] [address] Care Team Providers Care Yarder Operator Name Role Phone AdeelUrbano toscano Primary Care Provider Encounter Details Date Type Department Care Team (Late st Contact Info) Description 05/11/2014 Orders [place] [address] Joseph Cortés MD [facility] [place] [address] Social History Tobacco Use Types Packs/Day Years [...] EST TH Visit (TeleHealth) Cardiology at [address] [phone] Byron Brown MD [facility] [place] [address] 07/14/2024 10:00 AM EST Hospital Encounter Non-[place] [address] Arrived documented as of this encounter Procedures [...] on filedocumented in this encounter Care Teams Yarder Operator Relationship Specialty Start Date End Date Urbano Denis DO [address] [place] [address] PCP - General 09/03/12 03/17/22 documented as of this encounter
--- OUTSIDE RECORDS SUMMARY | 2024-05-16 17:41 | XMS_ITS | Encounter Summary ---
Author Organization Formerly [facility] [place] [address] Care Team Providers Care Arborer Name Role Phone Albania Denis DO Primary Care Provider Encounter Details Date Type Department Care Team (Late st Contact Info) Description 07/11/2014 9:00 AM EST Follow-Up [place]rology [place] [address] Albania Loya MD [facility] [place] [address] CKD (chronic kidney disease) stage 3, GFR [...] 9:25 AM EST Nephrology/Hypertension Clinic Follow-up Note [id number] ID: 63 y.o.year-old male for follow up [...] 0.12 % Mouthwash 0 ??? FLUZONE QUAD [id number], PF, 60 mcg (15 mcg x 4)/0.5 [...] EST TH Visit (TeleHealth) Cardiology at [address] [address] Byron Brown MD [facility] [place] [address] 07/14/2024 10:00 AM EST Hospital Encounter Non[place] [address] Arrived documented as of this [...] Loya MD URINE ORDERABLES Performing Organization Address City/[facility] [...] MD HEMATOLOGY ORDERABLE S CERROSALINA PEACOCKIUM * Protein Electrophoresis, serum (07/11/2014 9:37 AM [...] In Lab Albania Loya MD CHEMISTRY ORDERABLES [facility] * (ABNORMAL) Hemoglobin A1c (07/11/2014 9:37 AM [...] Mellitus, Diabetes Care 2013; 36: Suppl. 1, D47-40 Estimated Average Glucose 123 mg/dL CERNER MILLENNIUM [...] resources are available on the ADA website: [email or web address] Harjeet MENDOSA, Chanel J, Philip R, et al. ??Translating the A1C assay into estimated average glucose values. ??Diabetes Care 2008:31(8):1408-4963. Blood specimen (specimen) 07/11/2014 9:37 AM EST 07/11/2014 9:41 AM EST Narrative Resulting Agency Comment Spec In Lab Albanai Loya MD CHEMISTRY ORDERABLES Performing Organization Address [facility] de Phone Number CERROSALINA PEACOCKIUM * Phosphorus (07/11/2014 9:37 AM EST) Phosphorus 3.4 2.5 - 4.5 mg/dL CERNER MILLENNIUM Blood specimen (specimen) 07/11/2014 9:37 AM EST 07/11/2014 9:41 AM EST Narrative Resulting Agency Comment Spec In Lab Albania Loya MD CHEMISTRY ORDERABLES Performing Organization Address [facility] de Phone Number CERROSALINA PEACOCKIUM * Albumin Level (07/11/2014 9:37 AM EST) Albumin 3.7 3.2 - 5.2 gm/dL CERNER MILLENNIUM Blood specimen (specimen) 07/11/2014 9:37 AM EST 07/11/2014 9:41 AM EST Narrative Resulting Agency Comment Spec In Lab Albania Loya MD CHEMISTRY ORDERABLES Performing Organization Address [facility] de Phone Number CERROSALINA MCCLENDONENNIUM * [...] the following links into your internet browser. [email or web address] Blood specimen (specimen) 07/11/2014 9:37 AM EST 07/11/2014 9:41 AM EST Narrative Resulting Agency Comment Spec In Lab Albania Loya MD CHEMISTRY ORDERABLES [facility] documented in this encounter Visit Diagnoses Diagnosis [...] system documented in this encounter Care Teams Arborer Relationship Specialty Start Date End Date Albania Denis DO [address] [place] [address] PCP - General 09/03/12 03/17/22 documented as of this encounter
--- OUTSIDE RECORDS SUMMARY | 2024-05-16 17:41 | XMS_ITS | Encounter Summary ---
Author Organization Formerly [facility] [place] [address] Care Team Providers Care Pigment Furnace Tender Name Role Phone Adeel Urbano KIRBY Primary Care Provider Reason for Visit * Reason Onset Date Comments Medication Refill 07/12/2013 Encounter Details Date Type Department Care Team (Late st Contact Info) Description 07/12/2013 Refill [place]ph[place] [phone] Urbano Loya MD [facility] [place] [address] Social History Tobacco Use Types Packs/Day Years [...] AM EST Visit (TeleHealth) Cardiology at [address] [phone] Byron Brown MD [facility] [place] [address] 07/14/2024 10:00 AM EST Hospital Encounter Non-[place] [address] Arrived documented as of this encounter Visit Diagnoses Not on filedocumented in this encounter Care Teams Pigment Furnace Tender Relationship Specialty Start Date End Date Urbano Denis DO [address] [facility] [address] [place] [address] PCP - General 09/03/12 03/17/22 documented as of this encounter
--- OUTSIDE RECORDS SUMMARY | 2024-05-16 17:41 | XMS_ITS | Encounter Summary ---
Author Organization [facility] [place] [address] Care Team Providers Care Automatic Machines Supervisor Name Role Phone AdeelUrbano toscano Primary Care Provider [phone] Encounter Details Date Type Department Care Team (Late st Contact Info) Description 01/15/2015 Orders Only Solid [place] [phone] Que Amaro MD [facility] TRANSPLANT SURGERY [place], [place] [id number] Social History Tobacco Use Types Packs/Day Years [...] EST TH Visit (TeleHealth) Cardiology at [address] [phone] Byron Brown MD [facility] CARDIOLOGY [place], [place] [id number] 07/14/2024 10:00 AM EST Hospital Encounter Non-[place]vasive [place] [address] Arrived documented as of this encounter Visit Diagnoses Not on filedocumented in this encounter Care Teams Automatic Machines Supervisor Relationship Specialty Start Date End Date Urbano Denis DO [address] [place] [address] PCP - General 09/03/12 03/17/22 documented as of this encounter
--- OUTSIDE RECORDS SUMMARY | 2024-05-16 17:41 | XMS_ITS | Encounter Summary ---
Author Organization [facility] [place] [address] Care Team Providers Care Diesel Engine Assembler Name Role Phone AdeelUrbano Primary Care Provider [phone] Reason for Referral * Consultation (Routine) - Closed Specialty Diagnoses / Procedures Referred By Humberto flor Referred To Contact Neurology Diagnoses Acute respiratory failure, unspecified whether with hypoxia or hypercapnia Shadi Wagner, [facility] [address] [facility] Neurology [address] [place] [id number] Referral ID Status Reason Start Date Expiration Date V isits Requested Visits Authorized [id number] Closed Consult Only 04/09/2015 04/08/2016 1 1 Encounter Details Date Type Department Care Team (Late st Contact Info) Description 04/09/2015 Orders Only [place] [address] Shadi Wagner, [facility] [address] Acute respiratory failure, unspecified whether [...] EDT Patient seen in hemodialysis rounds at [facility]. Nursing staff noted that patient has [...] EST TH Visit (TeleHealth) Cardiology at [address] [address] Byron Brown MD [facility] [place] [address] 07/14/2024 10:00 AM EST Hospital Encounter Non[place] [address] Arrived Scheduled Referrals Name Type Priority Associated Diagnoses Orde r Schedule Referral to Neurology Outpatient Referral Routine Acute respiratory failure, unspecified whether with hypoxia or hypercapnia Ordered: 04/09/2015 documented as of this encounter Visit Diagnoses Diagnosis Acute respiratory failure, unspecified whether with hypoxia or hypercapnia documented in this encounter Care Teams Diesel Engine Assembler Relationship Specialty Start Date End Date Urbano Denis DO [address] [place] [address] PCP - General 09/03/12 03/17/22 documented as of this encounter
--- OUTSIDE RECORDS SUMMARY | 2024-05-16 17:41 | XMS_ITS | Encounter Summary ---
Author Organization Formerly [facility] [place] [address] Care Team Providers Care Slubber Frame Changer Name Role Phone AdeelUrbano boland Primary Care Provider Encounter Details Date Type Department Care Team (Late st Contact Info) Description 05/02/2014 Orders [place] [phone] Joseph Cortés MD [facility] [place] [address] Social History Tobacco Use Types Packs/Day Years [...] EST TH Visit (TeleHealth) Cardiology at [address] [phone] Byron Brown MD [facility] [place] [address] 07/14/2024 10:00 AM EST Hospital Encounter Non-Invasive [place] [address] Arrived documented as of this encounter Procedures [...] on filedocumented in this encounter Care Teams Slubber Frame Changer Relationship Specialty Start Date End Date Urbano Denis DO [address] [place] [address] PCP - General 09/03/12 03/17/22 documented as of this encounter
--- OUTSIDE RECORDS SUMMARY | 2024-05-16 17:41 | XMS_ITS | Encounter Summary ---
Author Organization [facility] Address [facility] [place] [address] Care Team Providers Care Motor Mechanic Name Role Phone Urbano Denis DO Primary Care Provider Encounter Details Date Type Department Care Team (Late st Contact Info) Description 01/04/2015 Telephone Nephrology [place] [address] Urbano Loya MD [facility] [place] [address] Social History Tobacco Use Types Packs/Day Years Used Date Smoking Tobacco: Former Sex and Gender Information Value Date Recorded Sex Assigned at Not on file Gender Identity Not on file Sexual Orientation Not on file documented as of this encounter Miscellaneous Notes * Telephone Encounter - Urbano Loya MD - 01/04/2015 4:36 PM EDT Spoke with Dr. Lewis from nephrology at [facility]. He has been seeing Mr. Lewis for a few months and his Cr has been steadily rising to the mid 5s. Mr. Bolden is developing some AM nausea and Dr. Lewis is concerned that he is becoming uremic. He would like me to arrange dialysis catheter placement here and dialysis initiation at [facility]. I called Mr. Lewis who reports that he was hospitalized 2 months ago for severe hypertension and several of his medications were changed. His Eliquis was stopped. He does endorse fatigue and AM nauseaand is interested in starting dialysis. He is also being evaluated for a kidney transplant in [place]. Juan order renal function testing and hep B serologies to be done at [facility] tomorrow and have contacted IR for dialysis catheter placement. They can take him Thursday morning. I will contact . [facility] in the morning to confirm that they have an opening to take a new dialysis patient. documented in this encounter Plan of Treatment Upcoming Encounters Date Type Department Care Team (Late st Contact Info) Description 06/22/2024 11:00 AM EST TH Visit (TeleHealth) Cardiology at [address] [phone] Byron Brown MD [facility] [place] [address] 07/14/2024 10:00 AM EST Hospital Encounter Non-[place] [address] Arrived documented as of this encounter Results [...] NOTE Procedure: Tunneled HD catheter placement. ACC#: [id number] Indication for Procedure: 64 y.o. male with Stage 5 CKD who presents for placement of a tunneled pheresis catheter for dialysis. Per Dr. Loya 01/04/15, Spoke with Dr. Lewis from nephrology at [facility]. He has been seeing [Yuan] for a few months and his Cr has been steadily rising to the mid 5s. Mr. Bolden is developing some AM nausea and Dr. Lewis is concerned that he is becoming uremic. He would like me to arrange dialysis catheter placement here and dialysis initiation at [facility]. Procedure events and findings: After obtaining [...] NOTE Procedure: Tunneled HD catheter placement. ACC#: [id number] Indication for Procedure: 64 y.o. male with Stage 5 CKD who presents for placement of a tunneled pheresis catheter for dialysis. Per Dr. Loya 01/04/15, Spoke with Dr. Lewis from nephrology at [facility]. Hehas been seeing [Yuan] for a few months and his Cr has been steadily risingto the mid 5s. Mr. Bolden is developing some AM nausea and Dr. Lewis isconcerned that he is becoming uremic. He would like me to arrange dialysiscatheter placement here and dialysis initiation at [facility]. Procedure events and findings: After obtaining [...] unspecified documented in this encounter Care Teams Motor Mechanic Relationship Specialty Start Date End Date Urbano Denis DO [address] [place] [address] PCP - General 09/03/12 03/17/22 documented as of this encounter
--- OUTSIDE RECORDS SUMMARY | 2024-05-16 17:41 | XMS_ITS | Encounter Summary ---
Author Organization [facility] Address [facility] [place] [address] Care Team Providers Care Director It Project Name Role Phone Urbano Denis DO Primary Care Provider [phone] Reason for Visit * Reason Comments Kidney Transplant Evaluation End Stage Renal Disease Encounter Details Date Type Department Care Team (Late st Contact Info) Description 04/19/2015 8:00 AM EDT Office Visit [place] [address] Tal Eagle MD [facility] [place] [address] Pre-transplant evaluation for ESRD (end stage renal [...] Bright - 05/23/2015 12:29 PM EST Transplant Supervisor Pipeline Note: Met with patient and his in Kidney Class to review medical and pharmacy benefits for transplant services. He is covered under Medicare AB as well as an [employer] retiree plan as his supplement. [employer] is his part D plan. I did not have his prescription insurance information prior to meeting with him, therefore I arranged with him to mail estimated post transplant medications copays. Primary Insurance: Medicare AB Secondary Plan:BCBS Medigap plan (part of long-term) Pharmacy Carrier:[employer] part D - long-term sponsored * Herlinda Bell RD - 04/19/2015 4:25 PM EDT TRANSPLANT NUTRITION Initial Transplant Note This va underwriter met with Cody Bolden a 64 y.o. year old male on 04/19/2015 for nutrition assessment as part of kidney transplant work-up. Patient and his , Mara, attended the Kidney Transplant Information Session and then met with each member of the transplant team. Patient has previously been worked up for transplant at [facility]. Medical history: ESRD, DM2, HTN, Hep C, obstructive sleep apnea, h/o colon polyp, GERD, CVA Diabetic History: Type 2 not on any insulin or OHA Dialysis History: initiated 01/2015 and receives his treatments at the [facility] dialysis unit. Patient and his state [...] means for contact provided. Plan communicated to Casing Worker for Documentation in patient's transplant medical record. Remain available for questions/concerns. * Ellen Bauer RN - 04/19/2015 2:50 PM EDT Solid Organ Acquisition and Transplantation [facility] PRE-OPERATIVE PATIENT TEACHING PATIENT NAME: Cody Bolden : 1950 Identification Barriers (Check those that apply): X None Identified Unable to Read Fatigue/Pain Vision Motivation Cultural/Catholic Hearing Language Safety Inspector Needed Other Learner: Patient Name: Cody Bolden [...] expectations, unit assignments, ADL activities, VS, monitors, DEAN OF FACULTY pain management, return to work schedules). X [...] toschedule placement, seeing Dr. Hunt. * Anibal Schroeder, [facility] ED - 04/19/2015 1:11 PM EDT Encounter Date: [...] fill your prescription completely)? Mr. Bolden uses [email or web address] pharmacy in [place], [place] and has never had any problems [...] 20 mg by mouth daily. No current [facility]-ordered facility-administered medications on file. Assessment/plan: 1. There are no medication contraindications noted to proceed with transplant surgery. 2. The need for salvage determiner medication and potential adjustment of medications post-transplant were discussed. 3. Patient was provided with handout reviewing post-transplant discharge medication costs. 4. Will remain available for any medication questions ANIBAL SCHROEDER RPH * Tal Eagle MD - 04/19/2015 11:46 AM EDT TRANSPLANT NEPHROLOGY CONSULT PATIENT: Cody Bolden : 1950 REASON FOR CONSULTATION: Kidney transplant Pre evaluation referred by Dr. Urbano Denis ID: 62 y.o. old male seen at the request of Dr. Denis for pre transplant evaluation for his kidney. He apparently has previously undergone a transplant evaluation at the [facility]. He has been told he will need [...] evaluation. [facility] by Dr [facility]) (per pt after that he changed his lobsterman after discussing with his PCP.[facility] lobsterman did kideny biopsy which according to pt showed ESRD due to DM and HTN. He has been on HD MWF at [facility] since then being followed by Dr Franco there. He is on list for kidney transplant since December 2008 at [facility] as he has one house in [place] and visits that area very frequently. Off note Pt is also being worked up by GI at [facility] for his hepatitis C. MEDICATIONS: Current Outpatient [...] for his fistula creation. Obtain record from [facility]. Seen and Discussed w/ Dr. Shagufta Villasenor MD Nephrology fellow Pager # [phone] I reviewed all of the above findings and assessment of Dr. Villasenor and formulated the recommendationswhich accurately reflect mine. 120 Min., >50% in direct face to face mortgage counselor. documented in this encounter Plan of Treatment Upcoming Encounters Date Type Department Care Team (Late st Contact Info) Description 06/22/2024 11:00 AM EST TH Visit (TeleHealth) Cardiology at [address] [phone] Byron Brown MD [facility] [place] [address] 07/14/2024 10:00 AM EST Hospital Encounter Non-Invasive [place] [address] Arrived documented as of this encounter Visit Diagnoses Diagnosis Pre-transplant evaluation for ESRD (end stage renal disease) Other specified pre-operative examination Type 2 diabetes mellitus with ESRD (end-stage renal disease) Type II or unspecified type diabetes mellitus with renal manifestations, not stated as uncontrolled documented in this encounter Care Teams Director It Project Relationship Specialty Start Date End Date Urbano Denis DO [address] [place] [address] PCP - General 09/03/12 03/17/22 documented as of this encounter
--- OUTSIDE RECORDS SUMMARY | 2024-05-16 17:41 | XMS_ITS | Encounter Summary ---
Author Organization [facility] [place] [address] Care Team Providers Care Floral Designer Name Role Phone Albania Denis DO Primary Care Provider Encounter Details Date Type Department Care Team (Late st Contact Info) Description 07/12/2013 11:30 AM EST Follow-Up [place] [address] Albania Schmid MD [facility] [place] [address] CKD (chronic kidney disease) stage 3, GFR [...] 12:03 PM EST Nephrology/Hypertension Clinic Follow-up Note [id number] ID: 62 y.o.year-old male for follow up [...] EST TH Visit (TeleHealth) Cardiology at [address] [phone] Byron Brown MD [facility] [place] [address] 07/14/2024 10:00 AM EST Hospital Encounter [place] [address] Arrived documented as of this [...] 9:39 AM EDT) Creatinine, Urine 121 mg/dL [facility] Protein, Urine 575(H) 0 - 12 mg/dL [facility] MILLENNIUM Protein / Creatinine Ratio, Urine 4.8 ratio [facility] MILL[facility]NI[facility] Urine specimen (specimen) 10/27/2013 9:39 AM EDT 10/27/2013 9:44 AM EDT Narrative Resulting Agency Comment Spec In Lab Albania Schmid MD URINE ORDERABLES [facility] CCM Benchmark * (ABNORMAL) Hemoglobin A1c (10/27/2013 9:37 AM EDT) Hemoglobin A1c 6.2(H) <=5.6 % SONJA Sheth [facility] Comment: As of 2013 the methodology [...] 1, S67-74 Estimated Average Glucose 131 mg/dL [facility] Comment: eAG equivalents for HbA1c percentages: [...] into estimated average glucose values. ??Diabetes Care 2008:31(8):4544-5770. Blood specimen (specimen) 10/27/2013 9:37 AM EDT 10/27/2013 9:45 AM EDT Narrative Resulting Agency Comment Spec In Lab Albania Schmid MD CHEMISTRY ORDERABLES Performing Organization Address [facility] de Phone Number [facility] * (ABNORMAL) VIT D Total Evaluation (10/27/2013 9:37 AM EDT) Vitamin D Total 25 OH 20(L) 30 - 100 ng/mL [facility] Comment: Deficient <10 ng/mL Insufficient 10 [...] Schmid MD CHEMISTRY ORDERABLES Performing Organization Address [facility] de Phone Number [facility] * Phosphorus (10/27/2013 9:37 AM EDT) Phosphorus 3.1 2.5 - 4.5 mg/dL [facility] Blood specimen (specimen) 10/27/2013 9:37 AM EDT 10/27/2013 9:45 AM EDT Narrative Resulting Agency Comment Spec In Lab Albania Schmid MD CHEMISTRY ORDERABLES Performing Organization Address [facility] Co de Phone Number [facility] * Albumin Level (10/27/2013 9:37 AM EDT) Albumin 3.5 3.2 - 5.2 gm/dL [facility] MILLENNI[facility] Blood specimen (specimen) 10/27/2013 9:37 AM EDT 10/27/2013 9:45 AM EDT Narrative Resulting Agency Comment Spec In Lab Albania Schmid MD CHEMISTRY ORDERABLES Performing Organization Address [facility] Co de Phone Number [facility] * (ABNORMAL) PTH (10/27/2013 9:37 AM EDT) Parathyroid Hormone 95(H) 15 - 65 pg/mL [facility] MCCLENDONENNI[facility] Blood specimen (specimen) 10/27/2013 9:37 AM EDT 10/27/2013 9:45 AM EDT Narrative Resulting Agency Comment Spec In Lab Albania Schmid MD CHEMISTRY ORDERABLES Performing Organization Address [facility] de Phone Number [facility]OCK[facility] [...] intervals supplied above were not validated at [facility]. Results from pediatric patients should be interpreted [...] Lab Albania Schmid MD CHEMISTRY ORDERABLES [facility] * US retroperitoneal complete (10/27/2013 9:15 AM EDT) Anatomical Region Laterality Modality Abdomen Ultrasound 10/27/2013 9:15 AM EDT Narrative 10/27/2013 10:26 AM EDT ? Renal ? (Signed Final 10/27/2013 10:25 am) Patient Info ID: ? [id number] ? : [birth year] (63 yrs) Name: ? ETHEL AKINS ? Visit Date: 10/27/2013 09:11 am Performed By Performed By: ?Amanda Ahuja RDMS Associate: ? Kameron Holloway MD Attending: ? Preeti Holloway MD Referred By: ? ALBANIA SCHMID MD Service(s) Provided URETRO - Retroperitoneal Complete - [id number] ? [id number] Indications 62 year old male with microhematuria [...] Final 10/27/2013 10:25 am) Patient Info ID: [id number] : [birth year] (63 yrs) Name: ETHEL AKINS Visit Date: 10/27/2013 09:11 am Performed By Performed By: Amanda Ahuja RDMS Associate: Kameron Holloway MD Attending: Preeti Holloway MD Referred By: ALBANIA SCHMID MD Service(s) Provided URETRO - Retroperitoneal Complete - [id number] Indications 62 year old male with microhematuria [...] MD HEMATOLOGY ORDERABLE S Performing Organization Address [facility] Co de Phone Number [facility] * (ABNORMAL) Protein/Creatinine Ratio, urine (07/12/2013 10:57 AM EST) Creatinine, Urine 211 mg/dL [facility] Protein, Urine 555(H) 0 - 12 mg/dL [facility] MILLENNIUM Protein / Creatinine Ratio, Urine 2.6 ratio [facility]ER DANELLEENNIUM Urine specimen (specimen) 07/12/2013 10:57 AM EST 07/12/2013 11:06 AM EST Narrative Resulting Agency Comment Spec In Lab Albania Schmid MD URINE ORDERABLES Performing Organization Address [facility] de Phone Number [facility] * Phosphorus (07/12/2013 10:57 AM EST) Phosphorus 2.8 2.5 - 4.5 mg/dL [facility] MADONNAIUM Blood specimen (specimen) 07/12/2013 10:57 AM EST 07/12/2013 11:06 AM EST Narrative Resulting Agency Comment Spec In Lab Albania Schmid MD CHEMISTRY ORDERABLES Performing Organization Address [facility] Co de [...] Schmid MD CHEMISTRY ORDERABLES [facility] MILLENNI[facility] * CBC (with Diff) (07/12/2013 [...] Metabolic Panel (non-fasting) (07/12/2013 10:57 AM EST) [facility] Glucose 157 60 - 199 mg/dL [facility] MILLENNIUM Comment:Diabetes: >=200 mg/d L plus symptoms Blood Urea Nitrogen 28(H) 10 - 20 mg/dL [facility] MILLENNIUM Creatinine 1.86(H) 0.80 - 1.50 mg/dL [facility] MILLENNI[facility] Comment: Please note that the pediatric reference intervals supplied above were not validated at [facility]. Results from pediatric patients should be interpreted [...] unspecified documented in this encounter Care Teams Floral Designer Relationship Specialty Start Date End Date Albania Denis DO [address] [place] [address] PCP - General 09/03/12 03/17/22 documented as of this encounter
--- OUTSIDE RECORDS SUMMARY | 2024-05-16 17:41 | XMS_ITS | Encounter Summary ---
Author Organization [facility] [place] [address] Care Team Providers Care Manager Technical Training Name Role Phone Adeel Urbano KIRBY Primary Care Provider Reason for Visit * Reason Onset Date Comments Medication Refill 02/20/2014 Encounter Details Date Type Department Care Team (Late st Contact Info) Description 02/20/2014 Refill Neph[place] [phone] Urbano Loya MD [facility] NEPHROLOGY [place], [place] [id number] Hypertension (Primary Dx) Social History Tobacco Use [...] EST TH Visit (TeleHealth) Cardiology at [address] [address] Byron Brown MD [facility] [place] [address] 07/14/2024 10:00 AM EST Hospital Encounter Non-[place] [address] Arrived documented as of this encounter Visit Diagnoses Diagnosis Hypertension- Primary Unspecified essential hypertension documented in this encounter Care Teams Manager Technical Training Relationship Specialty Start Date End Date Urbano Denis DO [address] [place] [address] PCP - General 09/03/12 03/17/22 documented as of this encounter
--- OUTSIDE RECORDS SUMMARY | 2024-05-16 17:41 | XMS_ITS | Encounter Summary ---
Author Organization [facility] [place] [address] Care Team Providers Care Nanny Caregiver Name Role Phone Urbano Denis DO Primary Care Provider [phone] Encounter Details Date Type Department Care Team (Late st Contact Info) Description 04/19/2015 Notes Only Solid Organ Transplant at [facility] [address] Chapin Lehman MSW Social History Tobacco Use [...] Background and Supports: Pt [place] born [place] graduated from [place] school in [place], [place]. Pt grew up in his biological [...] Pt reports that they were not a bahai family, though pt was [place] to go to [employer] until he was 14 years old. Pt [...] his life. 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 Pt was in 1983 and in 1987, [...] 20 miles from pt. Pt moved to [place] when they retired in 2003. Education/Employment/Financial Situation: [...] good relationship with him. Pt has good case management coordinator with Dr. Lazar. Pt reports that he will work well with his new case management coordinator.Did not like his previous case management coordinator here. Pt is in dialysis. Donors: Pt [...] EST TH Visit (TeleHealth) Cardiology at [address] [address] Byron Brown MD [facility] [place] [address] 07/14/2024 10:00 AM EST Hospital Encounter Non[place] [address] Arrived documented as of this encounter Visit Diagnoses Not on filedocumented in this encounter Care Teams Nanny Caregiver Relationship Specialty Start Date End Date Urbano Denis DO [address] [facility] [place] [address] PCP - General 09/03/12 03/17/22 documented as of this encounter
--- OUTSIDE RECORDS SUMMARY | 2024-05-16 17:41 | XMS_ITS | Encounter Summary ---
Author Organization [facility] [place] [address] Care Team Providers Care Childcare Worker Name Role Phone Urbano Denis DO Primary Care Provider Encounter Details Date Type Department Care Team (Late st Contact Info) Description 05/24/2014 External Results [place] [phone] Social History Tobacco Use Types Packs/Day Years [...] EST TH Visit (TeleHealth) Cardiology at [address] [phone] Byron Brown MD [facility] [place] [address] 07/14/2024 10:00 AM EST Hospital Encounter Non-[place] [phone] Arrived documented as of this encounter Procedures [...] on filedocumented in this encounter Care Teams Childcare Worker Relationship Specialty Start Date End Date Urbano Denis DO [address] [place] [address] PCP - General 09/03/12 03/17/22 documented as of this encounter
--- OUTSIDE RECORDS SUMMARY | 2024-05-16 17:41 | XMS_ITS | Encounter Summary ---
Author Organization [facility] [place] [address] Care Team Providers Care Child Psychology Teacher Name Role Phone Urbano Denis DO Primary Care Provider [phone] Encounter Details Date Type Department Care Team (Late st Contact Info) Description 01/09/2015 Telephone [place] [phone] Kandace Houston RN Social History Tobacco Use [...] TDC placement. Plan for first dialysis treatment: [facility] Mon-Wed-Fri at 1430 (await start date) Access: TDC placed 01/09/15 Transportation Plans: Insurance clearance on: 01/09/15 Plan: Called [facility] today-no answer Will call tomorrow AM to get start date for dialysis. documented in this encounter Plan of Treatment Upcoming Encounters Date Type Department Care Team (Late st Contact Info) Description 06/22/2024 11:00 AM EST TH Visit (TeleHealth) Cardiology at [address] [address] Byron Brown MD [facility] [place] [address] 07/14/2024 10:00 AM EST Hospital Encounter Non-Invasive [place] [phone] Arrived documented as of this encounter Visit Diagnoses Not on filedocumented in this encounter Care Teams Child Psychology Teacher Relationship Specialty Start Date End Date Urbano Denis DO [address] [place] [address] [address] [facility] [address] [place] [address] PCP - General 09/03/12 03/17/22 documented as of this encounter
--- OUTSIDE RECORDS SUMMARY | 2024-05-16 17:41 | XMS_ITS | Encounter Summary ---
[place] [address] Care Team Providers Care Wing Mailer Machine Operator Name Role Phone AdeelUrbano toscano Primary Care Provider [phone] Encounter Details Date Type Department Care Team (Late st Contact Info) Description 05/02/2015 1:58 PM EDT Anesthesia [place] [address] Zohra Beltran, INSIDE SOLAR SALES CONSULTANT [facility] [address] [place] [address] Anesthesia Record Procedure Summary Procedure Name Responsible [...] access Standard ASA monitors DYAN STARR MD [address] Region - Other Informed Consent: PAT Staff Note documented in this encounter Plan of Treatment Upcoming Encounters Date Type Department Care Team (Late st Contact Info) Description 06/22/2024 11:00 AM EST TH Visit (TeleHealth) Cardiology at [address] [phone] Byron Brown MD [facility] [place] [address] 07/14/2024 10:00 AM EST Hospital Encounter Non-[place] [address] Arrived documented as of this encounter Visit Diagnoses Not on filedocumented in this encounter Care Teams Wing Mailer Machine Operator Relationship Specialty Start Date End Date Urbano Denis DO [address] [place] [address] PCP - General 09/03/12 03/17/22 documented as of this encounter
--- OUTSIDE RECORDS SUMMARY | 2024-05-16 17:41 | XMS_ITS | Encounter Summary ---
Author Organization [facility] [place] [address] Care Team Providers Care Operations Assistant Name Role Phone Urbano Denis DO Primary Care Provider [phone] Encounter Details Date Type Department Care Team (Latest Contact Info) Description 01/09/2015 6:33 AM EDT - 01/09/2015 11:59 PM EDT Hospital [place] [address] Urbano Loya MD [facility] [place] [address] Type 2 diabetes mellitus with stage 5 [...] numbers on file. PCP URBANO DENIS DO [phone] Date/Time of call: January 10, 2015/7:20 AM [...] : 1950 AGE 64 y.o. Address: [address] [place] [phone] (home) Mobile: No relevant phone numbers on [...] % Mouthwash 01/08/14 PROVIDER, HISTORICAL FLUZONE QUAD [phone], PF, 60 mcg (15 mcg x 4)/0.5 [...] informed this patient that they require a taxicab driver to be present and in the building to drive them home after this procedure. In the absence of a taxicab driver, IR will not be able to [...] NOTE Procedure: Tunneled HD catheter placement. ACC#: [id number] Indication for Procedure: 64 y.o. male with Stage 5 CKD who presents for placement of a tunneled pheresis catheter for dialysis. Per Dr. Loya 01/04/15, Spoke with Dr. Lewis from nephrology at [facility]. He has been seeing [Yuan] for [...] EST TH Visit (TeleHealth) Cardiology at [address] [phone] Byron Brown MD [facility] [place] [address] 07/14/2024 10:00 AM EST Hospital Encounter Non-Invasive [place] [address] Arrived documented as of this [...] NOTE Procedure: Tunneled HD catheter placement. ACC#: [id number] Indication for Procedure: 64 y.o. male with Stage 5 CKD who presents for placement of a tunneled pheresis catheter for dialysis. Per Dr. Loya 01/04/15, Spoke with Dr. Lewis from nephrology at [facility]. He has been seeing [Yuan] for [...] NOTE Procedure: Tunneled HD catheter placement. ACC#: [id number] Indication for Procedure: 64 y.o. male with Stage 5 CKD who presents for placement of a tunneled pheresis catheter for dialysis. Per Dr. Loya 01/04/15, Spoke with Dr. Lewis from nephrology at [facility]. Vinods been seeing [Yuan] for a few [...] mLs documented in this encounter Care Teams Operations Assistant Relationship Specialty Start Date End Date Urbano Denis DO [address] [place] [address] PCP - General 09/03/12 03/17/22 documented as of this encounter
--- OUTSIDE RECORDS SUMMARY | 2024-05-16 17:41 | XMS_ITS | Encounter Summary ---
Author Organization [facility] [place] [address] Care Team Providers Care Cardiac Cath Tech Name Role Phone Urbano Denis DO Primary Care Provider [phone] Reason for Visit * Reason Comments Other Encounter Details Date Type Department Care Team (Late st Contact Info) Description 02/15/2014 Telephone Ne[place] [address] Urbano Loya MD [facility] [place] [place] [address] Social History Tobacco Use Types Packs/Day Years [...] EST TH Visit (TeleHealth) Cardiology at [address] [phone] Byron Brown MD [facility] [place] [address] 07/14/2024 10:00 AM EST Hospital Encounter Non-Invasive [place] [address] Arrived documented as of this encounter Visit Diagnoses Not on filedocumented in this encounter Care Teams Cardiac Cath Tech Relationship Specialty Start Date End Date Urbano Denis DO [address] [place] [address] PCP - General 09/03/12 03/17/22 documented as of this encounter
--- OUTSIDE RECORDS SUMMARY | 2024-05-16 17:41 | XMS_ITS | Encounter Summary ---
Author Organization [facility] [place] [address] Care Team Providers Care Floating Labor Gang Supervisor Name Role Phone Urbano Denis DO Primary Care Provider Encounter Details Date Type Department Care Team (Late st Contact Info) Description 03/16/2015 9:00 AM EDT Office [place] [address] Jennifer Amaro MD [facility] [place] [address] ESRD (end stage renal disease) Discharge Disposition: [...] cirrhosis. He is closely followed by a professor of education at [facility] where he is being evaluated for kidney [...] etc) reports sent to my office from [facility]. I would like to confirm that his liver disease is not more advanced than he suggests in the clinic. He is making arragements to have the records faxed to our office. 2. I will confirm that a perioperative Plavix hold (7 days pre, ~ 2 days post) will not be an issuewith his neurologist (Dr. Shannan Plaza at [facility]). 3. Obtain 12-lead EKG results from [facility]. Patient arranging to have records faxed to [...] AM EST Visit (TeleHealth) Cardiology at [address] [address] Byron Brown MD [facility] [place] [address] 07/14/2024 10:00 AM EST Hospital Encounter Non-[place] [address] Arrived documented as of this encounter Visit Diagnoses Diagnosis ESRD (end stage renal disease) End stage renal disease documented in this encounter Care Teams Floating Labor Gang Supervisor Relationship Specialty Start Date End Date Urbano Denis DO [address] [place] [address] PCP - General 09/03/12 03/17/22 documented as of this encounter
--- OUTSIDE RECORDS SUMMARY | 2024-05-16 17:41 | XMS_ITS | Encounter Summary ---
Author Organization [facility] [place] [address] Care Team Providers Care Paddock Judge Name Role Phone Urbano Denis DO Primary Care Provider [phone] Encounter Details Date Type Department Care Team (Late st Contact Info) Description 01/04/2015 Telephone [place]ph[place] [phone] Urbano Loya MD [facility] [place] [address] Social History Tobacco Use Types Packs/Day Years [...] EST TH Visit (TeleHealth) Cardiology at [address] [phone] Byron Brown MD [facility] [place] [address] 07/14/2024 10:00 AM EST Hospital Encounter Non-[place] [address] Arrived documented as of this encounter Visit Diagnoses Not on filedocumented in this encounter Care Teams Paddock Judge Relationship Specialty Start Date End Date Urbano Denis DO [address] [place] [address] [address] [place] [address] PCP - General 09/03/12 03/17/22 documented as of this encounter
--- OUTSIDE RECORDS SUMMARY | 2024-05-16 17:41 | XMS_ITS | Encounter Summary ---
Author Organization [facility] [place] [address] Care Team Providers Care Hr Shared Services Consultant Name Role Phone [place] Denis DO Primary Care Provider [phone] Encounter Details Date Type Department Care Team (Late st Contact Info) Description 05/22/2014 11:00 AM EST Follow-Up Nephrology [place] [address] Albania Schmid MD [facility] [place] [address] CKD (chronic kidney disease) stage 3, GFR [...] 11:29 AM EST Nephrology/Hypertension Clinic Follow-up Note [id number] ID: 63 y.o.year-old male for follow up [...] 0.12 % Mouthwash 0 ??? FLUZONE QUAD [id number], PF, 60 mcg (15 mcg x 4)/0.5 [...] mcL Appearance UA Hazy (*) Clear Spec [place] UA 1.015 1.002 - 1.030 Color UA [...] EST TH Visit (TeleHealth) Cardiology at [address] [address] Byron Brown MD [facility] [place] [address] 07/14/2024 10:00 AM EST Hospital Encounter Non[place] [address] Arrived documented as of this [...] Schmid MD URINE ORDERABLES Performing Organization Address [facility]/ZIP Co de Phone Number CERNER MILLENNIUM [...] Schmid MD URINE ORDERABLES Performing Organization Address [facility] de Phone Number CERNER MILLENNIUM * Protein [...] Schmid MD CHEMISTRY ORDERABLES Performing Organization Address [facility] Co de Phone Number CERROSALINA MILLENNIUM * (ABNORMAL) Hemoglobin A1c (07/11/2014 9:37 AM EST) Hemoglobin A1c 5.9(H) <=5.6 % [facility] Comment: Reference Range: 4.3 - 5.6% 5.7 [...] 1, S67-74 Estimated Average Glucose 123 mg/dL [facility] Comment: eAG equivalents for HbA1c percentages: HbA1c(%) ?eAG(mg/dL) 6.0 ?126 6.5 ?140 7.0 ?154 7.5 ?169 8.0 ?183 8.5 ?197 9.0 ?212 9.5 ?226 10.0 ? 240 Limitations: The eAG calculation has not been validated on women, individuals below 18 years old and above 70 years old, and individuals with hemoglobinopathies. Additional resources are available on the ADA website: http://[email or web address]/DHMCadacalc Harjeet MENDOSA, Chanel J, Philip R, et al. ??Translating the A1C assay into estimated average glucose values. ??Diabetes Care 2008:31(8):6002-8979. Blood specimen (specimen) 07/11/2014 9:37 AM EST 07/11/2014 9:41 AM EST Narrative Resulting Agency Comment Spec In Lab Albania Schmid MD CHEMISTRY ORDERABLES Performing Organization Address City/State/[facility] Co de Phone Number [facility] * Phosphorus (07/11/2014 9:37 AM EST) Phosphorus 3.4 2.5 - 4.5 mg/dL [facility] MILLENNIUM Blood specimen (specimen) 07/11/2014 9:37 AM EST 07/11/2014 9:41 AM EST Narrative Resulting Agency Comment Spec In Lab Albania Schmid MD CHEMISTRY ORDERABLES Performing Organization Address [facility] Co de Phone Number [facility] * Albumin Level (07/11/2014 9:37 AM EST) Albumin 3.7 3.2 - 5.2 gm/dL [facility] Blood specimen (specimen) 07/11/2014 9:37 AM EST 07/11/2014 9:41 AM EST Narrative Resulting Agency Comment Spec In Lab Albania Schmid MD CHEMISTRY ORDERABLES Performing Organization Address [facility] Co de Phone Number [facility] * (ABNORMAL) PTH (07/11/2014 9:37 AM EST) Parathyroid Hormone 164(H) 15 - 65 pg/mL [facility] Blood specimen (specimen) 07/11/2014 9:37 AM EST 07/11/2014 9:41 AM EST Narrative Resulting Agency Comment Spec In Lab Albania Schmid MD CHEMISTRY ORDERABLES Performing Organization Address [facility] Co de Phone Number [facility] * (ABNORMAL) Basic Metabolic Panel (non-fasting) (07/11/2014 9:37 AM EST) Glucose 111 60 - 199 mg/dL [facility] Comment:Diabetes: >=200 mg/d L plus symptoms Blood Urea Nitrogen 41(H) 10 - 20 mg/dL [facility] Creatinine 2.73(H) 0.80 - 1.50 mg/dL [facility] Comment: Please note that the [...] the following links into your internet browser. [email or web address] Blood specimen (specimen) 07/11/2014 9:37 AM EST 07/11/2014 9:41 AM EST Narrative Resulting Agency Comment Spec In Lab [place] Schmid MD CHEMISTRY ORDERABLES [facility] [email or web address] * US retroperitoneal complete (06/07/2014 10:23 AM EST) Anatomical Region Laterality Modality Abdomen Ultrasound 06/07/2014 10:2 3 AM EST Narrative 06/07/2014 10:30 AM EST Renal ?(Signed Final 06/07/2014 10:29 ? am) Patient Info ID #: ? [id number] ?: ??[birth year] (63 yrs) Name: ? ETHEL AKINS ?Visit Date: 06/07/2014 10:10 am Performed By Performed By: ?Isrrael MCGRATH, ??Nuris Attending: ? Alec GERBER, Guy Vargas Referred By: ? ALBANAI SCHMID MD Service(s) Provided ??URETRO - Retroperitoneal Complete - [id number] ? [id number] Indications ??63 year old male with DM, [...] 06/07/2014 10:29 am) Patient Info ID #: [id number] : [birth year] (63 yrs) Name: ETHEL AKINS Visit Date: 06/07/2014 10:10 am Performed By Performed By: Nuris Arcos RDMS Attending: Guy Michael MD Referred By: ALBANIA SCHMID MD Service(s) Provided URETRO - Retroperitoneal Complete - [id number] Indications 63 year old male with DM, [...] Text Report Department: Vascular Surgery Lab Patient: [id number] (ETHEL AKINS) CPT Code: 01552 ICD-9: 401.9; 272.0 Referring Physician: ALBANIA SCHMID [...] Urine Dipstick Hazy(A) Clear CERNER MILLENNIUM Specific [place] Urine Automated 1.015 1.002 - 1.030 CERNER [...] following risk cutoff thresholds for the [place] population: Desirable: <200 mg/dL Borderline High: 200-239 mg/dL High: > or = 240 mg/dL Blood specimen (specimen) 05/22/2014 10:13 AM EST 05/22/2014 10:22 AM EST Narrative Resulting Agency Comment Spec In Lab Albania Schmid MD CHEMISTRY ORDERABLES [facility] * Hemoglobin A1c (05/22/2014 10:13 AM EST) Hemoglobin A1c 5.6 <=5.6 % [facility] Comment: Reference Range: [...] Mellitus, Diabetes Care 2013; 36: Suppl. 1, S67-60 Estimated Average Glucose 114 mg/dL [facility] Comment: eAG equivalents for HbA1c percentages: HbA1c(%) ?eAG(mg/dL) 6.0 ?126 6.5 ?140 7.0 ?154 7.5 ?169 8.0 ?183 8.5 ?197 9.0 ?212 9.5 ?226 10.0 ? 240 Limitations: The eAG calculation has not been validated on women, individuals below 18 years old and above 70 years old, and individuals with hemoglobinopathies. Additional resources are available on the ADA website: http://Databanq.com/DHMCadacalc Harjeet MENDOSA, Chanel J, Philip R, et al. ??Translating the A1C assay into estimated average glucose values. ??Diabetes Care 2008:31(8):9089-3281. Blood specimen (specimen) 05/22/2014 10:13 AM EST 05/22/2014 10:22 AM EST Narrative Resulting Agency Comment Spec In Lab Albania Schmid MD CHEMISTRY ORDERABLES Performing Organization Address [facility] Co de Phone Number [facility] * Phosphorus (05/22/2014 10:13 AM EST) Phosphorus 3.7 2.5 - 4.5 mg/dL [facility] Blood specimen (specimen) 05/22/2014 10:13 AM EST 05/22/2014 10:22 AM EST Narrative Resulting Agency Comment Spec In Lab Albania Schmid MD CHEMISTRY ORDERABLES Performing Organization Address [facility] Co de Phone Number [facility] * Albumin Level (05/22/2014 10:13 AM EST) Albumin 3.5 3.2 - 5.2 gm/dL [facility] Blood specimen (specimen) 05/22/2014 10:13 AM EST 05/22/2014 10:22 AM EST Narrative Resulting Agency Comment Spec In Lab Albania Schmid MD CHEMISTRY ORDERABLES Performing Organization Address [facility] Co de Phone Number [facility] * (ABNORMAL) PTH (05/22/2014 10:13 AM EST) Parathyroid Hormone 153(H) 15 - 65 pg/mL [facility] Blood specimen (specimen) 05/22/2014 10:13 AM EST 05/22/2014 10:22 AM EST Narrative Resulting Agency Comment Spec In Lab Albania Schmid MD CHEMISTRY ORDERABLES [facility] * (ABNORMAL) Basic Metabolic Panel [...] the following links into your internet browser. [email or web address] Blood specimen (specimen) 05/22/2014 10:13 AM EST [...] (moderate) documented in this encounter Care Teams Hr Shared Services Consultant Relationship Specialty Start Date End Date Albania Denis DO [address] [place] [address] PCP - General 09/03/12 03/17/22 documented as of this encounter
--- OUTSIDE RECORDS SUMMARY | 2024-05-16 17:41 | XMS_ITS | Encounter Summary ---
Author Organization [facility] [place] [address] Care Team Providers Care Community Services Manager Name Role Phone Urbano Denis DO Primary Care Provider [phone] Encounter Details Date Type Department Care Team (Late st Contact Info) Description 06/07/2014 8:30 AM EST Ancillary Appointment [place] [address] Mac Hurley, RVT Hypertension; Proteinuria; [...] EST TH Visit (TeleHealth) Cardiology at [address] [address] Byron Brown MD [facility] [place] [address] 07/14/2024 10:00 AM EST Hospital Encounter Non-Invasive [place] [address] Arrived documented as of [...] Text Report Department: Vascular Surgery Lab Patient: [id number] (ETHEL AKINS) CPT Code: 99871 ICD-9: 401.9; 272.0 Referring Physician: URBANO LOYA [...] documented in this encounter Care Teams Community Services Manager Relationship Specialty Start Date End Date Urbano Denis DO [address] [place] [address] PCP - General 09/03/12 03/17/22 documented as of this encounter
--- OUTSIDE RECORDS SUMMARY | 2024-05-16 17:41 | XMS_ITS | Encounter Summary ---
Author Organization [facility] Address [facility] [place] [address] Care Team Providers Care Grinder Set Up Operator Thread Name Role Phone Urbano Denis DO Primary Care Provider [phone] Encounter Details Date Type Department Care Team (Latest Contact Info) Description 06/07/2014 9:31 AM EST - 06/07/2014 11:59 PM [facility] Hospital [place] [address] CLINIC, Urbano Milian MD [facility] [place] [address] Hypertension; Proteinuria; DM type 2 (diabetes mellitus, [...] % Mouthwash 0 01/08/2014 03/16/2015 FLUZONE QUAD [id number], PF, 60 mcg (15 mcg x 4)/0.5 [...] EST TH Visit (TeleHealth) Cardiology at [address] [phone] Byron Brown MD [facility] [place] [address] 07/14/2024 10:00 AM EST Hospital Encounter Non-[place]vasive [place] [address] Arrived documented as of this encounter Procedures [...] ? am) Patient Info ID #: ? [id number] ?: ??[birth year] (63 yrs) Name: ? ETHEL AKINS ?Visit Date: 06/07/2014 10:10 am Performed By Performed By: ?Isrrael NOYOLAMS, ??Nuris Attending: ? Alec GERBER, Guy Vargas Referred By: ? URBANO LOYA MD Service(s) Provided ??URETRO - Retroperitoneal Complete - [id number] ? [id number] Indications ??63 year old male with DM, [...] 06/07/2014 10:29 am) Patient Info ID #: [id number] : [birth year] (63 yrs) Name: ETHEL AKINS Visit Date: 06/07/2014 10:10 am Performed By Performed By: Nuris Arcos RDMS Attending: Guy Michael MD Referred By: URBANO LOYA MD Service(s) Provided URETRO - Retroperitoneal Complete - [id number] Indications 63 year old male with DM, [...] (moderate) documented in this encounter Care Teams Grinder Set Up Operator Thread Relationship Specialty Start Date End Date Urbano Denis DO [address] [place] [address] PCP - General 09/03/12 03/17/22 documented as of this encounter
--- OUTSIDE RECORDS SUMMARY | 2024-05-16 17:41 | XMS_ITS | Encounter Summary ---
[place] [address] Care Team Providers Care Solution Engineer Name Role Phone AdeelUrbano toscano Primary Care Provider Reason for Visit * Reason Onset Date Comments Patient Not Seen 04/19/2015 Encounter Details Date Type Department Care Team (Late st Contact Info) Description 04/19/2015 9:40 AM EDT Office Visit Solid [place] [address] Que Amaro MD [facility] [place] [address] PATIENT NOT SEEN Social History Tobacco Use [...] EST TH Visit (TeleHealth) Cardiology at [address] [address] Byron Brown MD [facility] [place] [address] 07/14/2024 10:00 AM EST Hospital Encounter Non-Invasive Cardiology Lab [facility] [place] [address] Arrived documented as of this encounter Visit Diagnoses Diagnosis PATIENT NOT SEEN documented in this encounter Care Teams Solution Engineer Relationship Specialty Start Date End Date Urbano Denis DO [address] [place] [address] PCP - General 09/03/12 03/17/22 documented as of this encounter
--- OUTSIDE RECORDS SUMMARY | 2024-05-16 17:42 | XMS_ITS ---
[place] [address] Care Team Providers Care Senior Product Integrity Engineer Name Role Phone Urbano Jimenez DO Primary Care Provider [phone] Transplant Episode Kidney Recipient [facility] ([place], [place]) - [facility] Organ Received: Right Kidney Transplanted on 09/16/2015 [...] Coordinator N/A N/A N/A Jomar Franco MD Brush Or Broom Cutter Referring Physician N/A N/A N/A Urbano Denis DO PCP N/A N/A N/A Events Post-Transplant Pre-Transplant Admitted: 09/16/2015 Referred: 01/15/2015 Transplanted: 09/16/2015 Evaluation began: 5 Discharged: 09/20/2015 [facility] qualified: 01/11/2015 Center waitlisted: 6 Dialysis History Dialysis History Start End Type Comments Center 01/11/2015 MON, WED, FRI [facility] Dialysis Center Information Center Phone Fax Address [facility] [phone] [place] [address] [place] [address]
--- OUTSIDE RECORDS SUMMARY | 2024-05-16 17:42 | XMS_ITS | Encounter Summary ---
Author Organization [facility] [place] [address] Care Team Providers Care Glove Examiner Name Role Phone Urbano Denis DO Primary Care Provider Encounter Details Date Type Department Care Team (Late st Contact Info) Description 12/06/2012 11:30 AM EDT Follow-Up Nephrology [place] [address] Urbano Loya MD [facility] [place] [address] Hypertension (Primary Dx); H/O hematuria; Proteinuria; DM [...] 11:25 AM EDT Nephrology/Hypertension Clinic Follow-up Note [id number] ID: 62 y.o.year-old male for follow up [...] UA Negative Appearance UA Clear Clear Spec [place] UA 1.014 1.002 - 1.030 Color UA [...] EST TH Visit (TeleHealth) Cardiology at [address] [phone] Byron Brown MD [facility] [place] [address] 07/14/2024 10:00 AM EST Hospital Encounter Non[place] [address] Arrived documented as of this encounter Procedures [...] Loya MD URINE ORDERABLES Performing Organization Address City/State/[facility] Co de Phone Number CERNER MILLENNIUM * Phosphorus (07/12/2013 10:57 AM EST) Phosphorus 2.8 2.5 - 4.5 mg/dL CERNER MILLENNIUM Blood specimen (specimen) 07/12/2013 10:57 AM EST 07/12/2013 11:06 AM EST Narrative Resulting Agency Comment Spec In Lab Urbano Loya MD CHEMISTRY ORDERABLES Performing Organization Address City/State/[facility] Co de Phone Number BENEDICT MCCLENDONENNIUM * Albumin Level (07/12/2013 10:57 AM EST) Albumin 3.8 3.2 - 5.2 gm/dL CERNER MILLENNIUM Blood specimen (specimen) 07/12/2013 10:57 AM EST 07/12/2013 11:06 AM EST Narrative Resulting Agency Comment Spec In Lab Urbano Loya MD CHEMISTRY ORDERABLES Performing Organization Address [facility] Co de Phone Number BENEDICT PEACOCKIUM * (ABNORMAL) PTH (07/12/2013 10:57 AM EST) Parathyroid Hormone 73(H) 15 - 65 pg/mL CERNER MILLENNIUM Blood specimen (specimen) 07/12/2013 10:57 AM EST 07/12/2013 11:06 AM EST Narrative Resulting Agency Comment Spec In Lab Urbano Loya MD CHEMISTRY ORDERABLES Performing Organization Address [facility] de Phone Number BENEDICT PEACOCKIUM * CBC [...] Metabolic Panel (non-fasting) (07/12/2013 10:57 AM EST) [facility] Glucose 157 60 - 199 mg/dL [...] MD CHEMISTRY ORDERABLES CERNER MILLENNIUM * (ABNORMAL) Protein/Creatinine Ratio, urine (12/06/2012 10:51 AM EDT) Creatinine, Urine 164 mg/dL CERNER MILLENNIUM Protein, Urine 547(H) 0 - 12 mg/dL CERNER MILLENNIUM Protein / Creatinine Ratio, Urine 3.3 ratio CERNER MILLENNIUM Urine specimen (specimen) 12/06/2012 10:51 AM EDT 12/06/2012 10:54 AM EDT Narrative Resulting Agency Comment Spec In Lab Urbano Loya MD URINE ORDERABLES Performing Organization Address City/[facility]/ZIP Co de Phone Number CERNER MILLENNIUM * [...] Urine Dipstick Clear Clear CERNER MILLENNIUM Specific [place] Urine Automated 1.014 1.002 - 1.030 CERNER [...] Loya MD CHEMISTRY ORDERABLES Performing Organization Address City/[facility]/ZIP Co de Phone Number CERROSALINA MCCLENDONENNIUM * (ABNORMAL) PTH (12/06/2012 10:34 AM EDT) Pathologist [facility] Parathyroid Hormone 91(H) 15 - 65 pg/mL [facility] Blood specimen (specimen) 12/06/2012 10:34 AM EDT 12/06/2012 10:42 AM EDT Narrative Resulting Agency Comment Spec In Lab Urbano Loya MD CHEMISTRY ORDERABLES Performing Organization Address [facility] Co de Phone Number CERROSALINA MCCLENDONENNIUM * Albumin Level (12/06/2012 10:34 AM EDT) Albumin 4.0 3.2 - 5.2 gm/dL [facility] M[facility] Blood specimen (specimen) 12/06/2012 10:34 AM EDT 12/06/2012 10:42 AM EDT Narrative Resulting Agency Comment Spec In Lab Urbano Loya MD CHEMISTRY ORDERABLES Performing Organization Address City/[facility]/ZIP Co de Phone Number CERNER MILLENNIUM * CBC (with Diff) (12/06/2012 10:34 AM [...] Metabolic Panel (non-fasting) (12/06/2012 10:34 AM EDT) [facility] Glucose 119 60 - 199 mg/dL CERNER [...] (moderate) documented in this encounter Care Teams Glove Examiner Relationship Specialty Start Date End Date Urbano Denis DO [address] [place] [address] PCP - General 09/03/12 03/17/22 documented as of this encounter
--- OUTSIDE RECORDS SUMMARY | 2024-05-16 17:42 | XMS_ITS | Encounter Summary ---
Author Organization [facility] [place] [address] Care Team Providers Care Product Safety Technical Assistant Name Role Phone Urbano Denis DO Primary Care Provider Encounter Details Date Type Department Care Team (Latest Contact Info) Description 09/03/2012 10:00 AM EST Office Visit Nephrology [place] [address] Urbano Loya MD [facility] [place] [address] Hypertension (Primary Dx); H/O hematuria; Proteinuria; DM [...] 10:26 AM EST Hypertension/Nephrology Consultation Ethel Akins [id number] ID: [id number] y.o. old male seen [...] No Known Allergies Family History: Father of [place], brother of sarcoma. Social History: , smokes [...] this interesting patient. >the total time spent [id number] AND total time the provider spent counseling was xxx minutes. Please CC to: Urbano Denis, @[email or web address]@ documented in this encounter Plan of Treatment Upcoming Encounters Date Type Department Care Team (Late st Contact Info) Description 06/22/2024 11:00 AM EST TH Visit (TeleHealth) Cardiology at [address] [id number] Byron Brown MD [facility] [place] [address] 07/14/2024 10:00 AM EST Hospital Encounter Non-Invasive [place] [phone] Arrived documented as of this encounter Procedures [...] In Lab Urbano Loya MD URINE ORDERABLES [employer] * (ABNORMAL) Urinalysis without microscopic (12/06/2012 10:51 [...] Urine Dipstick Clear Clear CERNER MILLENNIUM Specific [place] Urine Automated 1.014 1.002 - 1.030 CERNER [...] Loya MD CHEMISTRY ORDERABLES BENEDICT PEACOCKIUM * Albumin Level (12/06/2012 10:34 AM EDT) Albumin 4.0 3.2 - 5.2 gm/dL CERROSALINA MCCLENDONENNIUM Blood specimen (specimen) 12/06/2012 10:34 AM EDT 12/06/2012 10:42 AM EDT Narrative Resulting Agency Comment Spec In Lab Urbano Loya MD CHEMISTRY ORDERABLES Performing Organization Address City/[facility]/ZIP Co de Phone Number CERROSALINA PEACOCKIUM * [...] MD HEMATOLOGY ORDERABLE S Performing Organization Address City/[facility]/ZIP Co de Phone Number BENEDICT COOK * (ABNORMAL) Basic Metabolic Panel (non-fasting) (12/06/2012 10:34 AM EDT) Glucose 119 60 - 199 mg/dL CERNER MILLENNIUM Comment:Diabetes: >=200 mg/d L plus symptoms Blood Urea Nitrogen 28(H) 10 - 20 mg/dL CERNER MILLENNIUM Creatinine 1.68(H) 0.80 - 1.50 mg/dL CERNER MILLENNIUM Comment: Please note that the pediatric reference intervals supplied above were not validated at [facility]. Results from pediatric patients should [...] Absolute 0.01 0.00 - 0.05 x10(3)/mcL CERNER DANELLEENNIUM Blood specimen (specimen) 09/03/2012 11:06 AM EST 09/03/2012 11:15 AM EST Urbano Loya MD HEMATOLOGY ORDERABLE S Performing Organization Address City/[facility] Co de Phone Number BENEDICT COOK * Phosphorus (09/03/2012 11:06 AM EST) Phosphorus 2.7 2.5 - 4.5 mg/dL BENEDICT PEACOCKIUM Blood specimen (specimen) 09/03/2012 11:06 AM EST 09/03/2012 11:15 AM EST Narrative Resulting Agency Comment Spec In Lab Urbano Loya MD CHEMISTRY ORDERABLES Performing Organization Address City/[facility] Co de Phone Number BENEDICT PEACOCKIUM * Albumin Level (09/03/2012 11:06 AM EST) Albumin 3.8 3.2 - 5.2 gm/dL BENEDICT MCCLENDONENNIUM Blood specimen (specimen) 09/03/2012 11:06 AM EST 09/03/2012 11:15 AM EST Narrative Resulting Agency Comment Spec In Lab Urbano Loya MD CHEMISTRY ORDERABLES Performing Organization Address [facility] Co [...] MD HEMATOLOGY ORDERABLE S Performing Organization Address City/[facility] Co [...] intervals supplied above were not validated at [facility]. Results from pediatric patients should [...] Loya MD CHEMISTRY ORDERABLES Performing Organization Address City/[facility]/ZIP Co de Phone Number [employer] * (ABNORMAL) Protein/Creatinine Ratio, urine (09/03/2012 10:30 AM EST) Creatinine, Urine 135 mg/dL CERNER MILLENNIUM Protein, Urine 457(H) 0 - 12 mg/dL CERNER MILLENNIUM Protein / Creatinine Ratio, Urine 3.4 ratio CERNER MILLENNIUM Urine specimen (specimen) 09/03/2012 10:30 AM EST 09/03/2012 10:42 AM EST Narrative Resulting Agency Comment Spec In Lab Urbano Loya MD URINE ORDERABLES Performing Organization Address City/[facility] Co de Phone Number BENEDICT [employer] documented in this encounter Visit Diagnoses Diagnosis [...] (moderate) documented in this encounter Care Teams Product Safety Technical Assistant Relationship Specialty Start Date End Date Urbano Denis DO [address] [place] [address] PCP - General 09/03/12 03/17/22 documented as of this encounter
[2024-05-16 17:50] LABS: Troponin I 55 ng/L (<or=76)
--- NOTE | 2024-05-16 18:13 | W.PC.ACHO ---
Registration Status: Primary Language: Preferred Language: ED Information & Data Chief Complaint SOB 05/16/24 17:02 Triage Note SOB stating , not 05/16/24 12:49 getting better. denies cough and swelling, uses cpap at night time. states that he is more labored than usual. weight has increased over the last couple weeks Medical / Surgical History (Last Reviewed 05/16/24 @ 16:57 by Sukumar Vega MD) History of diverticulitis (09/14/22) Fistula Obstructive sleep apnea Myocardial infarction Hepatitis C Chronic kidney disease Hypothyroidism CVA (cerebral vascular accident) CHF (congestive heart failure) Diabetes HTN (hypertension) Hyperlipemia GERD (gastroesophageal reflux disease) BPH (benign prostatic hyperplasia) Atrial fibrillation (Last Reviewed 05/16/24 @ 16:57 by Sukumar Vega MD) History of arthroscopy of knee History of biopsy H/O bladder repair surgery History of hernia repair H/O vasectomy Rotator Cuff Repair Colonoscopy - MAC BIOPSY, KIDNEY (10/16/14) Arthroplasty of knee Most Recent Vital Signs Temperature 97.5 F L 05/16/24 17:24 Temperature Source Tympanic 05/16/24 17:22 Pulse 65 05/16/24 17:24 Pulse Rhythm Regular 05/16/24 17:24 Pulse 60 05/16/24 16:47 Respiratory Rate 18 05/16/24 17:24 Respiratory Effort Normal, Non-Labored 05/16/24 17:24 Respiratory Depth Normal 05/16/24 17:24 Respiratory Pattern Normal 05/16/24 17:24 Blood Pressure 143/63 H 05/16/24 17:24 Blood Pressure Mean 76 05/16/24 17:03 Blood Pressure Position Supine 05/16/24 13:27 Pulse Oximetry 95 05/16/24 17:24 Oxygen Delivery Method Room Air 05/16/24 17:24 Oxygen Flow Rate 0 05/16/24 17:24 Pain Level 0 05/16/24 17:24 Allergies strawberry Allergy (Unknown, Verified 05/16/24 12:55) Other (See Comment) per patient, numb in the mouth IV contrast Adverse Reaction (Severe, Uncoded 05/16/24 12:55) Other (See Comment) Renal transplant, no IV contrast per transplant team Precautions Isolation Standard precaution 05/16/24 13:22 Diet Orders Category Date Time Status Renal [DIET] Nutrition 05/16/24 Dinner Active Diagnostics 05/16/24 05/16/24 05/16/24 Range/Units 17:15 15:39 15:22 WBC (4.4-10.8) 10^3/uL RBC (4.36-5.78) 10^6/uL Hgb (13.5-17.5) g/dL Hct (40.0-50.0) % MCV (80-95) fL MCH (27.0-33.0) pg MCHC (32.0-36.0) % RDW (11.8-14.1) % Plt Count (130-400) 10^3/uL MPV (8.0-11.0) fL Immature Gran % % Neutrophils % % Lymphocytes % % Monocytes % % Eosinophils % % Basophils % % Nucleated RBC % (0.0-0.3) % Absolute Neutrophils (1.2-6.7) 10^3/uL Absolute Lymphocytes (1.2-3.4) 10^3/uL Absolute Monocytes (0.1-0.8) 10^3/uL Absolute Eosinophils (0.0-0.7) 10^3/uL Absolute Basophils (0.0-0.2) 10^3/uL PT (9.1-11.1) sec INR (0.9-1.1) APTT (23.6-32.8) sec Sodium (136-145) mmol/L Potassium (3.5-5.1) mmol/L Chloride (98-107) mmol/L Carbon Dioxide (21.0-32.0) mmol/L Anion Gap (3-11) mmol/L BUN (7-18) mg/dL Creatinine (0.70-1.30) mg/dL Est GFR (CKD-EPI 2020) (mL/min/1.73m2) Glucose (74-106) mg/dL Calcium (8.5-10.1) mg/dL Magnesium (1.8-2.4) mg/dL Total Bilirubin (0.2-1.0) mg/dL AST (15-37) U/L ALT (16-63) U/L Alkaline Phosphatase (46-116) U/L Troponin I 55 39 (<or=76) ng/L NT-Pro-B Natriuret Pep (<300) pg/mL Total Protein (6.4-8.2) g/dL Albumin (3.4-5.0) g/dL Urine Color Yellow (Yellow) Urine Clarity Clear (Clear) Urine pH 6.5 (5-8) Ur Specific [place] 1.020 (1.005-1.025) Urine Protein 100 H (Neg-Trace) mg/dL Urine Ketones Negative (Negative) mg/dL Urine Blood Negative (Negative) Urine Nitrite Negative (Negative) Urine Bilirubin Negative (Negative) Urine Urobilinogen 0.2 (Up to 0.2) mg/dL Ur Leukocyte Esterase Negative (Negative) Urine RBC 0-2 (0-2) HPF Urine WBC 0-2 (0-5) HPF Ur Epithelial Cells Rare (Negative) HPF Urine Crystals Rare Calcium Oxalate (Negative) HPF Urine Bacteria Rare (Negative) HPF Urine Mucus Not Applicable Ur Culture Indicated? No Urine Glucose Negative (Negative) mg/dL Tacrolimus 05/16/24 Range/Units 13:40 WBC 7.44 (4.4-10.8) 10^3/uL RBC 4.51 (4.36-5.78) 10^6/uL Hgb 13.4 L (13.5-17.5) g/dL Hct 41.0 (40.0-50.0) % MCV 91 (80-95) fL MCH 29.7 (27.0-33.0) pg MCHC 32.7 (32.0-36.0) % RDW 14.0 (11.8-14.1) % Plt Count 228 (130-400) 10^3/uL MPV 9.2 (8.0-11.0) fL Immature Gran % 0.3 % Neutrophils % 67.6 % Lymphocytes % 17.6 % Monocytes % 8.7 % Eosinophils % 4.7 % Basophils % 1.1 % Nucleated RBC % 0.0 (0.0-0.3) % Absolute Neutrophils 5.03 (1.2-6.7) 10^3/uL Absolute Lymphocytes 1.31 (1.2-3.4) 10^3/uL Absolute Monocytes 0.65 (0.1-0.8) 10^3/uL Absolute Eosinophils 0.35 (0.0-0.7) 10^3/uL Absolute Basophils 0.08 (0.0-0.2) 10^3/uL PT 11.6 H (9.1-11.1) sec INR 1.2 H (0.9-1.1) APTT 26.1 (23.6-32.8) sec Sodium 147 H (136-145) mmol/L Potassium 4.0 (3.5-5.1) mmol/L Chloride 109 H (98-107) mmol/L Carbon Dioxide 30.2 (21.0-32.0) mmol/L Anion Gap 7.8 (3-11) mmol/L BUN 19 H (7-18) mg/dL Creatinine 1.5 H (0.70-1.30) mg/dL Est GFR (CKD-EPI 2020) 48.25 (mL/min/1.73m2) Glucose 111 H (74-106) mg/dL Calcium 9.6 (8.5-10.1) mg/dL Magnesium 1.5 L (1.8-2.4) mg/dL Total Bilirubin 3.32 H (0.2-1.0) mg/dL AST 18 (15-37) U/L ALT 25 (16-63) U/L Alkaline Phosphatase 79 (46-116) U/L Troponin I 47 (<or=76) ng/L NT-Pro-B Natriuret Pep 3744 H (<300) pg/mL Total Protein 7.5 (6.4-8.2) g/dL Albumin 3.3 L (3.4-5.0) g/dL Urine Color (Yellow) Urine Clarity (Clear) Urine pH (5-8) Ur Specific [place] (1.005-1.025) Urine Protein (Neg-Trace) mg/dL Urine Ketones (Negative) mg/dL Urine Blood (Negative) Urine Nitrite (Negative) Urine Bilirubin (Negative) Urine Urobilinogen (Up to 0.2) mg/dL Ur Leukocyte Esterase (Negative) Urine RBC (0-2) HPF Urine WBC (0-5) HPF Ur Epithelial Cells (Negative) HPF Urine Crystals (Negative) HPF Urine Bacteria (Negative) HPF Urine Mucus Ur Culture Indicated? Urine Glucose (Negative) mg/dL Tacrolimus Pending [id number] Documentation Fingerstick Glucose Start: 05/16/24 16:33 Freq: .AC Status: Active Protocol: Activity Type Activity Date Activity User E-sign Co-sign Detail Recorded Client Recorded Date Recorded By Document 05/16/24 17:19 BKG DAEMON(3) [id number] 05/16/24 17:20 BKG DAEMON(4) Intake and Output - 24 Hour Total 05/16/24 12:25 thru 05/16/24 17:24 Output Total 200 Balance -200 Weight 233 lb Output: Urine 200 Other: Urine Color Yellow Urine Appearance Clear Urine Odor None Falls Risk Assessment History of Falls No History 05/16/24 17:24 Contributing Factors No Factors 05/16/24 17:24 Ambulatory Aids Independent 05/16/24 17:24 Tubes/Lines None 05/16/24 17:24 Gait Evaluation No gait disturbance 05/16/24 17:24 Cognition No cognitive impairment 05/16/24 17:24 Fall Total Score 0 05/16/24 17:24 Level of Risk Standard/Low Risk 05/16/24 17:24 Problems (Last Reviewed 05/16/24 @ 16:57 by Sukumar Vega MD) Dyspnea (Acute) Hypernatremia (Acute) DVT prophylaxis (Acute) Hyperbilirubinemia (Acute) Hypomagnesemia (Acute) Tobacco use disorder (Acute) Hypothyroidism (Acute 04/06/15) Atrial fibrillation (Chronic 05/29/14) CHF (congestive heart failure) (Acute 09/19/14) Hypertension (Chronic) Diabetes mellitus, type II (Chronic) v v v v v v v v v Sending and/or Receiving Nurses: Please use comment section below to note any information pertinent to the patient hand-off not included above. Information / Comments: Right IV 18g Room Air Independent in room Report received from: Ewelina Nunez RN
[2024-05-16] MEDS: Enoxaparin 40 MG/0.4 ML SYR SC (18:24)
[2024-05-16] MEDS: metFORMIN 500 MG TAB PO (18:24)
[2024-05-16] MEDS: MAGNESIUM SULFATE 2 GM/50 ML BAG IV_INF (18:25)
[2024-05-16] MEDS: hydrALAZINE 25 MG TAB 100 MG PO (20:16)
[2024-05-16] MEDS: Tacrolimus 0.5 MG CAP 1 MG PO (20:16)
[2024-05-16] MEDS: Mycophenolate Mofetil 250 MG CAP PO (20:16)
[2024-05-16] MEDS: Ascorbic Acid 500 MG TAB PO (20:17)
[2024-05-16] MEDS: Normal Saline Flush 10 ML SYR IVP (20:17)
[2024-05-16] MEDS: Metoprolol CR 25 MG TABCR 75 MG PO (20:17)
[2024-05-16] MEDS: Atorvastatin 40 MG TAB PO (20:17)
[2024-05-17 02:59] VITALS: BP 136/86; PULSE 53; RESP 18; TEMP 37; O2SAT 100
[2024-05-17 06:58] LABS: Anion Gap 10.5 mmol/L (3-11); BUN 18 mg/dL (7-18); CO2 26.5 mmol/L (21.0-32.0); CREATININE 1.5 mg/dL (0.70-1.30); Chloride 110 mmol/L (98-107); Estimated GFR 48.25 (mL/min/1.73m2); Glucose 97 mg/dL (74-106); Magnesium 1.7 mg/dL (1.8-2.4); Potassium 3.3 mmol/L (3.5-5.1); Sodium 147 mmol/L (136-145); TSH (W/Ref FT4) 3.41 uIU/mL (0.36-3.74)
[2024-05-17 07:44] VITALS: BP 140/70; PULSE 62; RESP 18; TEMP 37.3; O2SAT 92
[2024-05-17 08:42] VITALS: BP 124/68; PULSE 54; RESP 16; O2SAT 95
[2024-05-17] MEDS: Furosemide 40 MG/4 ML VIAL IVP (09:00)
[2024-05-17] MEDS: MAGNESIUM SULFATE 2 GM/50 ML BAG IV_INF (09:00)
[2024-05-17] MEDS: Normal Saline Flush 10 ML SYR IVP (09:06)
[2024-05-17] MEDS: Aspirin E.C. 81 MG TABEC PO (09:08)
[2024-05-17] MEDS: Ascorbic Acid 500 MG TAB PO ×2 (09:08→16:34)
[2024-05-17] MEDS: metFORMIN 500 MG TAB PO (09:08)
[2024-05-17] MEDS: Tamsulosin 0.4 MG CAPCR PO (09:08)
[2024-05-17] MEDS: Mycophenolate Mofetil 250 MG CAP PO (09:08)
[2024-05-17] MEDS: Tacrolimus 0.5 MG CAP 1 MG PO (09:08)
--- NOTE | 2024-05-17 09:08 | PDOC.CMIN ---
Date of service: 05/17/24 Time of Service: 09:08 Care Management Initial Assmt Initial Assessment Reason for Hospitalization: CHF Functional Status/Living Situation Patient Presentation: Yash was sitting up in bed when CM met with him. He was pleasant in manner and agreeable to conversation. Yash was admitted with CHF after experiencing progressive SOB and weight gain over the last several days. When CM met with him he stated that he is feeling better today. His oxygen saturation has been in the mid to upper 90s on room air and he is diuresing well. Yash lives in a single family home in [place] with his Mara. They have one son who lives about 4 miles from them. 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 He is independent at baseline and does not receive any community services. Town of Residence: [place] Resides with: Spouse ( Mara) Significant Other/Family: Local (one son in [place], one local) Employment Status: Retired Instrumental Activities of Daily Living (ADLs): Independent Medications Medication Management: No Issues/Barriers identified Advance Directives Advance Directives: Do you have an Advance Directive: N 04/25/14 15:11 AD On File at [facility]: N 04/25/14 14:09 Date Asked 05/16/24 05/16/24 13:11 AD Date Reviewed COLST On File at [facility] COLST Date Scanned Code Status Resuscitation Status Full Code Insurance Coverage/Financial Issues Insurance: [employer] [facility] Care Team Visit Care Team Role Provider Type Urbano Jimenez DO Primary Care Provider OSTEOPATHIC DOCTOR Sukumar Vega MD Emergency Provider [facility] STAFF PHYSICIAN Santosh Hackett Admit Provider [facility] STAFF PHYSICIAN Attending Provider Discharge Potential Discharge Needs: PCP F/U Appt Anticipated Barriers to Discharge: None Identified Patient/Family Education Needs: Review discharge instructions, discuss Ask Me Three Transportation: Private vehicle Plan: Anticipate Yash will be discharged home with no new services. He will follow up with his community providers and plan of care and transport with family. CM will follow and continue to support discharge needs. PFSH All Active Problems Dyspnea (Acute) Hypernatremia (Acute) DVT prophylaxis (Acute) Hyperbilirubinemia (Acute) Hypomagnesemia (Acute) Squamous cell skin cancer (Acute) Atypical pigmented skin lesion (Acute) Pigmented skin lesion (Acute) Gout (Chronic) KIDNEY TRANSPLANT (Acute 09/16/15) [facility] Acute diverticulitis (Acute) Physical deconditioning (Acute) Gait difficulty (Acute) Meibomian gland dysfunction (MGD) of upper and lower eyelid of left eye (Acute ~08/2022) Meibomian gland dysfunction (MGD) of upper and lower eyelid of right eye (Acute ~08/2022) [place] (degenerative) of macula, bilateral (Acute) [place] note 08/15/22 Age-related nuclear cataract, bilateral (Acute) [place] note 08/15/22 Dry mouth (Acute) Periodic limb movement disorder (Acute) Central sleep apnea (Acute) alf current use of immunosuppressive drug (Acute) Diverticulitis of intestine with perforation (Acute) Pacemaker (Acute) dual lead [employer] [place] 01/31/2022 RIGHT SIDED Presence of Watchman left atrial appendage closure device (Acute) [facility] [place]/27 Long-term current use of immunosuppressive biologic agent (Chronic) Vitamin D deficiency (Acute ~05/2022) Osteoarthritis of left knee (Acute) Parkinsonism (Acute) Tremor (Acute) Acute diverticulitis (Acute) - confirmed by CT , inpt at 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, tx at [facility], anticoagulant stopped Altered mental status (Acute) Hypertensive retinopathy (Acute ~09/27/20) [place] 09/27/20- MILD TO MODERATE-KB Spinal stenosis (Acute) L5-S1 Subsequent non-ST elevation (NSTEMI) myocardial infarction within 4 weeks of initial infarction (Acute) stents Status post rotator cuff repair (Acute) Postoperative stiffness of total knee replacement (Chronic) Olecranon bursitis, left elbow (Chronic) Arthritis of left elbow (Acute) Tubular adenoma (Acute 09/12/15) 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 Microscopic hematuria (Acute 05/21/12) neg workup [facility] [place]. 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 Need dialysis or transplant. 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 s/p hernia repair b. s/p knee arthroscopy c. s/p unspecified shoulder surgery d. s/p vasectomy Medical History History of diverticulitis (09/14/22) Fistula Obstructive sleep apnea Myocardial infarction Hepatitis C Treated and cured Chronic kidney disease Hypothyroidism CVA (cerebral vascular accident) CHF (congestive heart failure) Diabetes HTN (hypertension) Hyperlipemia GERD (gastroesophageal reflux disease) BPH (benign prostatic hyperplasia) Atrial fibrillation Surgical History History of arthroscopy of knee History of biopsy H/O bladder repair surgery History of hernia repair H/O vasectomy Rotator Cuff Repair left Colonoscopy - MAC 2009 BIOPSY, KIDNEY (10/16/14) [facility] Arthroplasty of knee 2006-right Family History Mother Essential hypertension Father Myocardial infarction Stroke Brother Essential hypertension Neoplasm Social History Smoking/Tobacco Use Status: Current-Occasional Tobacco Type: cigars Tobacco: How many years used: 20 Smoking risk assessment performed?: Yes Alcohol Intake: never Drug use: Occasionally Substance use type: marijuana Adopted: No Caregiver/Support person: Yes Foster care: No Household members: spouse Housing: house Number of Children: 2 number of grandchildren: 1 Communication Needs: None Education Level: high school 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 Pets and animals: Yes Pets and animals: dog(s) Sexually active: No Do you think of yourself as: straight/heterosexual Current gender identity: male What is your relationship status?: How often do you talk on the phone with friends or family?: three or more times per week Do you belong to any clubs or organized social groups?: no Panel score (0-1 are the most socially isolated patients): 2 Idalia/Denominational: None Special idalia needs: No Seatbelt use: always Helmet use: Yes Helmet use: always Drive intox or ride w/intox front end loader driver: No Do you feel safe at home: Yes Do you feel safe in your relationship?: Yes SDOH(Care Management) Screening Will the Patient Participate in the Screening?: Yes Do you worry about having a steady place to live?: no Problems where you live: no known problems In the past 12 months, have you had to go without electric, gas, oil or water in your home?: no Have you or anyone in your house had to go without enough food to eat?: no Has lack of transportation kept you from medical appointments or from doing things needed for daily living?: no Has anyone in your support network made you feel unsafe for any reason?: no
[2024-05-17] MEDS: Calcitriol 0.25 MCG CAP 0.5 MCG PO (09:09)
[2024-05-17] MEDS: Metoprolol CR 25 MG TABCR 75 MG PO (09:09)
[2024-05-17] MEDS: hydrALAZINE 25 MG TAB 100 MG PO (09:09)
[2024-05-17] MEDS: Potassium Chloride 20 MEQ TABCR 40 MEQ PO (09:09)
[2024-05-17] MEDS: Multivitamin w/Minerals TAB 1 TAB PO (09:09)
[2024-05-17] MEDS: amLODIPine 5 MG TAB PO (09:09)
[2024-05-17 11:03] VITALS: BP 136/76; PULSE 62; RESP 16; TEMP 37; O2SAT 95
--- NOTE | 2024-05-17 14:30 | DI.US_ITS ---
APPROVED REPORT EXAM: Comprehensive 2D, Doppler, and color-flow Echocardiogram Patient Location: In-Patient Room/Bed: [address] [employer] Faculty Member: Lisa Moe RDCS (AE) Indications: CHF, SOB, Watchman Other Information Study Quality: Adequate Conclusion Borderline dilated left ventricle. Ejection fraction is 45%. There are no segmental wall motion abn ormalities Mildly dilated right ventricle Both atria are enlarged Device lead noted in the right heart Aortic valve is sclerotic and trileaflet with trace regurgitation Mild mitral annular calcification, mild mitral regurgitation Mild tricuspid regurgitation. Estimated right ventricular systolic pressure is 42 mmHg Ascending aorta measures 3.64 cm Wall motion Left Ventricle Left ventricle is mildly dilated. Left ventricular systolic function is moderately decreased. There i s normal left ventricular wall thickness. No segmental wall motion abnormalities There is no ventricu lar septal defect visualized. LVEF is 43%. Right Ventricle Right ventricle is mildly dilated. Right ventricle is mildly hypokinetic. Pacemaker lead is present i n the right ventricle. Atria Left atrium is severely dilated. Right atrium is severely dilated. The interatrial septum is intact with no evidence for an atrial septal defect. Aortic Valve The Aortic valve is sclerotic. Aortic valve is trileaflet. No hemodynamically significant valvular ao rtic stenosis. Trace aortic regurgitation. Mitral Valve Mild mitral annular calcification. No evidence of mitral valve stenosis. Mild mitral regurgitation. Tricuspid Valve The tricuspid valve is normal in structure. There is no tricuspid valve stenosis. Mild tricuspid regu rgitation. The RVSP is 42.0 mmHg. Pulmonic Valve The pulmonary valve is normal in structure. There is no pulmonic valvular stenosis. Trace pulmonic re gurgitation. Great Vessels The aortic root is normal in size. The ascending aorta is mildly dilated. Aortic arch is not well vis ualized. The IVC collapses <50% with inspiration. Pericardium There is no pericardial effusion. 2D Dimensions IVSD d PLAX 1.24 cm M: 0.6-1.2 Ao Root d 3.07 cm M: 3.1 - 3.7 LVPW d PLAX 1.20 cm M: 0.6 - 1.2 Ao Asc Diam d 3.64 cm M: 2.6 - 3.4 LVID d PLAX 6.00 cm M: 4.2 - 5.8 LVDs 4.75 cm M: 2.5 - 4.0 LV EF Teichholz 41.2 % FS 20.56 % LV EDV (Teich) 178.2 mL LV ESV (Teich) 104.7 mL M-Mode TAPSE 2.25 cm (M/F) >1.7 Auto EF LV EDV A4C 202.5 mL LV EDV A2C 183.3 mL LV EDV BP 192.7 mL LV ESV A4C 118.0 mL LV ESV A2C 101.9 mL LV ESV BP 110.5 mL LVEF(%) A4C 41.7 % LVEF(%) A2C 44.4 % LVEF(%) BP 42.6 % LV SV A4C 84.5 ml LV SV A2C 81.4 ml LV SV BP 82.2 ml LV CO A4C 5.5 L/min LV CO A2C 4.1 L/min LV CO BP 4.8 L/min HR A4C 65.34 BPM HR A2C 50.35 BPM LV EDV Index (BP) LV Strain Long Pk Overal Avg (s) 12.32 LA Volume LA Length A4C 6.4 cm LA Length A2C 6.7 cm LA Area A4C s 29.26 cm2 LA Area A2C s 27.83 cm2 LA Vol A4C A-L 113.83 mL LA Vol A2C A-L 98.10 mL LA Vol Biplane A-L 108.3 mL LA Vol/BSA A4C A-L LA Vol/BSA A2C A-L LA Vol/BSA BP A-L 67.7 mL/m2 LA Vol A4C MOD 105.6 mL LA Vol A2C MOD 93.2 mL LA Vol BP MOD 101.2 mL RA Volume RA Area A4C 20.2 cm2 RA ESV A4C (A-L) 64.6mL RA Vol/BSA A4C A-L RA Length A4C 5.4 cm RA ESV A4C (MOD) 59.4mL LV Diastology MV E' medial 0.087 (>0.07 m/s) MV E Vmax 1.16 (0.4-1.3 m/s) MV E/E' MED 13.21 (<14) MV E' lateral 0.113 (>0.1 m/s) MV E/E' LAT 10.19 (<14) MV E' Average 0.100 m/s MV E/E'(average) 11.50 Aortic Valve AoV Vmax 2.18 m/s LVOT Vmax 1.31 m/s AoV Peak Grad 40.9 mmHg LVOT Peak Grad 6.8 mmHg AoV Area (Vmax) 1.96 cm2 LVOT VTI 0.277 m AoV VTI 0.516 m LVOT Mean Grad 4.1 mmHg AoV Mean Kris. 1.51 m/s LVOT SV 90.43 mL AoV Mean Grad 10.5 mmHg LVOT Diam s 2.00 cm AoV Area (VTI) 1.75 cm2 AV Regurg Peak Gr. 19.07 mmHg Velocity Ratio 0.60 AR Decel [place] 2.1m/sec2 AR DT 1843 msec AR PHT 535 msec AR Vmax 3.96 m/s Mitral Valve MV DT 206 (160-240 msec) MR Vmax 4.40 m/s MV Vmax TIPS 1.05 m/s MR VTI 1.622 m MV Mean Grad 1.3 (<2mmHg) MR Peak Grad 77.3 mmHg MV VTI 0.315 m MR Mean Grad 47.6 mmHg Pulmonary Valve PV Vmax 1.05 (0.5-1.5 m/s) RVOT Vmax 0.77 m/s PV Peak Grad 4.4 mmHg RVOT Peak Gr. 2.4 mmHg PV Mean Kris 0.75 m/s RVOT VTI 0.187 m PV Mean Grad 2.5 mmHg RVOT Mean Gr. 1.4 mmHg Tricuspid Valve RA Pressure 8.00 mmHg TR Vmax 2.92 m/s TV S' 0.11 m/s TR Peak Grad 34.0 mmHg RVSP (TR) 42.0 mmHg
[2024-05-17 15:20] VITALS: BP 147/75; PULSE 63; RESP 16; TEMP 37.1; O2SAT 95
[2024-05-17] MEDS: Furosemide 80 MG TAB PO (16:35)
--- NOTE | 2024-05-17 17:35 | W.PM.DS.N ---
Date of service: 05/17/24 Time of Service: 17:36 DS: Diagnosis Discharge Diagnosis (1) CHF (congestive heart failure): Status: Acute (2) Atrial fibrillation: Status: Chronic (3) Hypertension: Status: Chronic (4) Diabetes mellitus, type II: Status: Chronic (5) Hypothyroidism: Status: Acute (6) Chronic kidney disease: (7) Tobacco use disorder: Status: Acute (8) Hypomagnesemia: Status: Acute (9) Hyperbilirubinemia: Status: Acute (10) Hypernatremia: Status: Acute (11) DVT prophylaxis: Status: Acute Discharge Plan Disposition Patient Disposition: Home Condition: Good Discharge Details Reason For Visit: CHF Admit Date/Time: 05/16/24 16:29 Admit Provider: Santosh Hackett Attending Provider: Santosh Hackett [facility] Hospital Course: 73 yo M with h/o CAD, well controlled type 2 DM, atrial fibrillation with h/o embolic and hemorrhagic strokes, s/p watchman, and s/p kidney transplant who presented with 5 days of progressively increased shortness of breath. His evaluation was consistent with congestive heart failure. EKG and troponins x 3 were not consitent with acute coronary syndrome. He was initially mildly hypoxic but he responded well to 40mg IV furosemide and was off oxygen the day of admission. He lost 2 Kg and was negative 2 liters overnight. Echocardiogram was repeated with results as below: Borderline dilated left ventricle. Ejection fraction is 45%. There are no segmental wall motion abnormalities (last echo showed LVEF 40% in 2014) Mildly dilated right ventricle Both atria are enlarged Device lead noted in the right heart Aortic valve is sclerotic and trileaflet with trace regurgitation Mild mitral annular calcification, mild mitral regurgitation Mild tricuspid regurgitation. Estimated right ventricular systolic pressure is 42 mmHg Ascending aorta measures 3.64 cm IVC collapsed <50% with inspiration Given his improvement and preferences we decided to continue diuresis at home. We continued furosemide at 80mg orally once a day. Potassium and magnesium supplementation was also recommended short term. The case was reviewed with Dr. Núñez [place] [facility] [place]. He did not recommend an SGLT2i due to risk of UTI with reconstructed bladder. Consideration of ANNAMARIE/ARB/ARNI also deferred to primary team. His creatinine was 1.5 and did not change after the first evening of diuresis, and this was not a change from his previous baseline. His magnesium and potassium were low and were replaced prior to discharge. His EKG showed ventricular pacing, and there were no concerning events on telemetry. It was noted his last EKG here had more atrial pacing, but both were seen on telemetry. His sodium was mildly elevated at 147. His bilirubin was mildly elevated, which was not new. Tacrolimus level was sent and was pending at time of discharge. Home Meds and New Rx's Prescriptions: New furosemide 80 mg tablet 80 mg PO DAILY Qty: 14 0RF magnesium oxide 400 mg magnesium capsule 400 mg PO DAILY Qty: 14 0RF potassium chloride 20 mEq tablet extended release 20 meq PO DAILY Qty: 14 0RF Continued omeprazole 20 mg capsule,delayed release(DR/EC) 20 mg PO DAILY PRN (Reason: GERD) Qty: 90 3RF metformin 500 mg tablet 500 mg PO BID Qty: 180 3RF hydralazine 100 mg tablet 100 mg PO BID Qty: 180 3RF nitroglycerin 0.4 mg tablet, sublingual 0.4 mg SL Q5M PRN (Reason: chest pain) Qty: 30 0RF (DME) blood sugar diagnostic Strip See Rx Instructions .ROUTE .MEDSUPPLY Qty: 180 4RF Rx Instructions: test BID (DME) lancets 28 gauge misc 1 ea Miscellaneous DAILY Qty: 100 0RF Rx Instructions: FOR ONE TOUCH ULTRA MINI METER. NO INSULIN. DIAGNOSIS CODE E11.3 mycophenolate mofetil [CellCept] 250 MG capsule 250 mg PO BID ascorbic acid (vitamin C) [Vitamin C] 500 MG capsule, extended release 500 mg PO TID Centrum Silver 0.4-300-250 mg-mcg-mcg tablet 2 tab PO DAILY aspirin [Adult Low Dose Aspirin] 81 mg tablet,delayed release (DR/EC) 81 mg PO DAILY acetaminophen 500 mg capsule 500 mg PO Q8H PRN PRN (Reason: pain) (DME) blood-glucose meter Misc 1 ea Miscellaneous DAILY Qty: 1 0RF Rx Instructions: FOR ONE TOUCH ULTRA MINI; Dx E11.9, to keep HbA1c less than 6.5% amlodipine 5 mg tablet 5 mg PO DAILY Qty: 90 3RF levothyroxine 137 mcg tablet 137 mcg PO DAILY Qty: 90 3RF atorvastatin 40 mg tablet 40 mg PO QHS Qty: 90 3RF tamsulosin 0.4 mg capsule 0.4 mg PO DAILY Qty: 90 3RF tacrolimus [Prograf] 1 mg capsule 1 mg PO BID glipizide 10 mg tablet extended release 24hr 10 mg PO BID Qty: 180 3RF saxagliptin 5 mg tablet 5 mg PO DAILY Qty: 90 3RF metoprolol succinate 50 mg tablet extended release 24 hr 75 mg PO BID Patient Comments: TAKE 1&1/2 TABLETS BY MOUTH TWO TIMES A DAY lidocaine [Lidoderm] 5 % adhesive patch,medicated 1 patch topical DAILY PRN (Reason: pain) Qty: 15 0RF Rx Instructions: leave on most painful area for up to 12 hrs calcitriol 0.5 mcg capsule 0.5 mcg PO DAILY Patient Comments: TAKE ONE CAPSULE BY MOUTH EVERY DAY Discharge Instructions Instructions: Heart Failure, Adult (DC) Additional Instructions: You should take the 80mg furosemide daily until seen in follow up by one of your medical providers. You should see your PCP or kidney specialist in the next week or two, preferably within the week. You should have another check of your kidney function in the next week, prior to your next appointment. You can get these done at [facility]. I ordered some, but Dr. Núñez wants to to ask for your transplant labs Stand Alone Forms: Nursing Discharge Form Referrals: Urbano Jimenez DO [Primary Care Provider] - 05/30/24 8:00 am Activity:: Activity as Tolerated Equipment/Supplies:: No Equipment Needed Diet:: Low Sodium Discharge Orders Discharge Orders: Discharge Order (Routine); Ordered 05/17/24 Ordered By: Santosh Hackett Other Ambulatory Orders: Basic Metabolic Panel (Routine) Timeframe: 1 Week Facility: [facility] - Location: Laboratory Outpatient - [facility] Ordered By: Santosh Hackett Magnesium (Routine) Timeframe: 1 Week Facility: [facility] - Location: Laboratory Outpatient - [facility] Ordered By: Santosh Hackett DS: Summary Time Spent with Patient providing and/or coordinating discharge services: Greater than 30 minutes Status at Discharge Functional status at discharge: independent ambulation Overall status at discharge: patient is back to baseline Mental Status: mental status grossly normal Speech and Movement: speech and movement normal Mood: congruent mood Affect: normal affect Quality:SDOH Health Related Social Needs: No Data to Display Exam Narrative Exam Narrative: GEN: Alert and oriented x 4. No acute distress at rest. Sitting up and walking around room. LUNGS: CTAB with normal effort, better air movement CV: RRR with no murmur, gallops, or rubs (murmur documented 05/16 was in error, was mistaken patient). ABD: active bowel sounds, soft, nontender and nondistended. No masses. EXT: no cyanosis, clubbing. trace pitting edema to knees bilaterally. not tender Psych Mental Status: mental status grossly normal Speech and Movement: speech and movement normal Mood: congruent mood Affect: normal affect DS: Data Vitals/I&O Vitals and I&O: Vital Signs Temperature 37.1 C 05/17/24 15:20 Temperature Source Temporal Artery Scan 05/17/24 15:20 Pulse 63 05/17/24 15:20 Pulse Rhythm Regular 05/16/24 17:24 Pulse 60 05/16/24 16:47 Respiratory Rate 16 05/17/24 15:20 Respiratory Effort Normal, Non-Labored 05/16/24 17:24 Respiratory Depth Normal 05/16/24 17:24 Respiratory Pattern Normal 05/16/24 17:24 Blood Pressure 147/75 H 05/17/24 15:20 Blood Pressure Mean 76 05/16/24 17:03 Blood Pressure Position Supine 05/16/24 13:27 Pulse Oximetry 95 05/17/24 15:20 Oxygen Delivery Method Nasal Cannula 05/17/24 15:20 Oxygen Flow Rate 0 05/17/24 11:03 Pain Level 0 05/17/24 07:44 Comment BP taken on lower right arm D/T IV running at this time 05/17/24 11:03 Intake & Output 05/16/24 05/17/24 05/17/24 23:59 11:59 23:59 Intake Total 150 / 150 540 / 780 240 / 780 Output Total 350 / 350 1625 / 2275 650 / 2275 Balance -200 / -200 -1085 / -1495 -410 / -1495 Weight 105.687 kg 103.873 kg Intake: IV 50 / 50 Oral 100 / 100 540 / 780 240 / 780 Output: Urine 350 / 350 1625 / 2275 650 / 2275 Other: Urine Color Yellow Pale Yellow Yellow Urine Appearance Clear Clear Clear Urine Odor None None Data Completed and Pending Labs on day of discharge: Labs from last 24 hours 05/17/24 05/16/24 05:42 17:15 Sodium 147 H Potassium 3.3 L Chloride 110 H Carbon Dioxide 26.5 Anion Gap 10.5 BUN 18 Creatinine 1.5 H Est GFR (CKD-EPI 2020) 48.25 Glucose 97 Calcium 9.0 Magnesium 1.7 L Troponin I 55 TSH 3.41 PFSH All Active Problems (Updated 05/16/24 @ 17:02 by Sukumar Vega MD) Dyspnea (Acute) Hypernatremia (Acute) DVT prophylaxis (Acute) Hyperbilirubinemia (Acute) Hypomagnesemia (Acute) Squamous cell skin cancer (Acute) Atypical pigmented skin lesion (Acute) Pigmented skin lesion (Acute) Gout (Chronic) Acute diverticulitis (Acute) Physical deconditioning (Acute) Gait difficulty (Acute) Meibomian gland dysfunction (MGD) of upper and lower eyelid of left eye (Acute ~08/2022) Meibomian gland dysfunction (MGD) of upper and lower eyelid of right eye (Acute ~08/2022) [place] (degenerative) of macula, bilateral (Acute) [place] note 08/15/22 Age-related nuclear cataract, bilateral (Acute) [place] note 08/15/22 Dry mouth (Acute) Periodic limb movement disorder (Acute) Central sleep apnea (Acute) 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 (Acute) Diverticulitis of intestine with perforation (Acute) Pacemaker (Acute) dual lead [employer] [place] 01/31/2022 RIGHT SIDED Presence of Watchman left atrial appendage closure device (Acute) [facility] 05/27 Long-term current use of immunosuppressive biologic agent (Chronic) Vitamin D deficiency (Acute ~05/2022) Osteoarthritis of left knee (Acute) Parkinsonism (Acute) Tremor (Acute) Acute diverticulitis (Acute) - confirmed by CT , inpt at [facility] Bradycardia (Chronic) Vasogenic edema (Acute) Hypertension (Chronic) Hiccups (Acute) Altered mental status (Acute) 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 Microscopic hematuria (Acute 05/21/12) [place] [facility] recipient (Chronic 09/16/15) [facility]; without recipient nephrectomy ureteral stenosis with multiple surgeries Inguinal hernia, unilateral (Acute) left Hypothyroidism (Acute 04/06/15) Hypertension (Acute) GERD (gastroesophageal reflux disease) (Acute) Elevated BUN (Acute) Diverticula of colon (Acute 09/12/15) Colon polyp (Acute 06/04/03) Repeat colonoscopy-no polyps; diverticulosis Cardiomyopathy due to hypertension (Acute 11/29/14) EF 40% 09/17 CKD (chronic kidney disease) stage 3, GFR 30-59 ml/min (Acute 04/25/14) 10/18 Stage 4.. Need dialysis or transplant. 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 s/p hernia repair b. s/p knee arthroscopy c. s/p unspecified shoulder surgery d. s/p vasectomy Chronic renal insufficiency (Chronic) Cryptogenic stroke (Chronic) Hyperlipidemia (Chronic) Diabetes mellitus, type II (Chronic) Hypertension (Chronic) CHF (congestive heart failure) (Acute 09/19/14) Medical History History of diverticulitis (09/14/22) Fistula Obstructive sleep apnea Myocardial infarction Hepatitis C Treated and cured Chronic kidney disease Hypothyroidism CVA (cerebral vascular accident) CHF (congestive heart failure) Diabetes HTN (hypertension) Hyperlipemia GERD (gastroesophageal reflux disease) BPH (benign prostatic hyperplasia) Atrial fibrillation Surgical History History of arthroscopy of knee History of biopsy H/O bladder repair surgery History of hernia repair H/O vasectomy Rotator Cuff Repair left Colonoscopy - MAC 2009 BIOPSY, KIDNEY (10/16/14) [facility]-RIGHT Arthroplasty of knee 2006-right Family History Mother Essential hypertension Father Myocardial infarction Stroke Brother Essential hypertension Neoplasm Social History Smoking/Tobacco Use Status: Current-Occasional Tobacco Type: cigars Tobacco: How many years used: 20 Smoking risk assessment performed?: Yes Alcohol Intake: never Drug use: Occasionally Substance use type: marijuana Adopted: No Caregiver/Support person: Yes Foster care: No Household members: spouse Housing: house Number of Children: 2 number of grandchildren: 1 Communication Needs: None Education Level: high school 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 Pets and animals: Yes Pets and animals: dog(s) Sexually active: No Do you think of yourself as: straight/heterosexual Current gender identity: male What is your relationship status?: How often do you talk on the phone with friends or family?: three or more times per week Do you belong to any clubs or organized social groups?: no Panel score (0-1 are the most socially isolated patients): 2 Idalia/Confucianism: None Special idalia needs: No Seatbelt use: always Helmet use: Yes Helmet use: always 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
[2024-05-18 14:06] LABS: Tacrolimus 7.8 ng/mL (See Note)
== END 2024-05-17 16:52 | disposition home or self-care (01) | DRG 291 ==
LOC: ER 17:02 → MS 05-17 09:58
PROVIDERS: Admitting Provider Family Medicine; Emergency Provider Emergency Medicine; PCP Family Medicine; Visit Provider Family Medicine
DX: I13.0 Hypertensive heart and chronic kidney disease with heart failure and stage 1 through stage 4 chronic kidney disease, or unspecified chronic kidney disease; I50.23 Acute on chronic systolic (congestive) heart failure; E87.0 Hyperosmolality and hypernatremia; Z94.0 Kidney transplant status; D84.821 Immunodeficiency due to drugs; I48.91 Unspecified atrial fibrillation; N18.9 Chronic kidney disease, unspecified; E03.9 Hypothyroidism, unspecified; F17.210 Nicotine dependence, cigarettes, uncomplicated; E83.42 Hypomagnesemia; E11.22 Type 2 diabetes mellitus with diabetic chronic kidney disease; E11.319 Type 2 diabetes mellitus with unspecified diabetic retinopathy without macular edema; E80.6 Other disorders of bilirubin metabolism; I25.5 Ischemic cardiomyopathy; Z86.73 Personal history of transient ischemic attack (TIA), and cerebral infarction without residual deficits; Z95.818 Presence of other cardiac implants and grafts; G47.61 Periodic limb movement disorder; G47.31 Primary central sleep apnea; Z95.0 Presence of cardiac pacemaker; G20.B1 Parkinson's disease with dyskinesia, without mention of fluctuations; Z96.651 Presence of right artificial knee joint; H90.3 Sensorineural hearing loss, bilateral; K21.9 Gastro-esophageal reflux disease without esophagitis; N40.0 Benign prostatic hyperplasia without lower urinary tract symptoms; F17.290 Nicotine dependence, other tobacco product, uncomplicated
CPT/HCPCS: 00123; 36415; 80048; 80053; 93005; 96365; 96366; 96372; 96374; 96375; 96376; 99285; J1650; 71046; 80197; 81003; 81015; 83735; 83880; 84443; 84484; 85025; 85610; 85730; 93010; 93306; 99222; 99239; G0378; J1815; J1940; J3475; J3490; J7517

== ENCOUNTER 2024-06-15 02:36 | Outpatient (CLI) | payer MEDICARE, SELFPAY ==
[2024-06-15 12:12] LABS: Abs Immature Grans 0.03 10^3/uL (0.0-0.06); Absolute Basophil Count 0.06 10^3/uL (0.0-0.2); Absolute Eosinophil Count 0.52 10^3/uL (0.0-0.7); Absolute Lymphocyte Count 1.31 10^3/uL (1.2-3.4); Absolute Monocyte Count 0.52 10^3/uL (0.1-0.8); Absolute Neutrophil Count 4.97 10^3/uL (1.2-6.7); Basophils % 0.8 %; HCT 40.9 % (40.0-50.0); HGB 13.2 g/dL (13.5-17.5); Immature Grans % 0.4 %; Lymphocytes % 17.7 %; MCH 29.3 pg (27.0-33.0); MCHC 32.3 % (32.0-36.0); MCV 91 fL (80-95); Neutrophils % 67.1 %; RDW 13.6 % (11.8-14.1); RDW-SD 45.1 fL; WBC 7.41 10^3/uL (4.4-10.8)
[2024-06-15 12:49] LABS: Platelet Count 137 10^3/uL (130-400)
[2024-06-15 13:06] LABS: COMMENT (LAB VIEW ONLY) 150.24 mg/dL; PROTEIN 32.2 mg/dL; Prot/Crea Ur Ratio 0.21
[2024-06-15 13:13] LABS: Cholesterol 78 mg/dL (<200)
[2024-06-15 13:15] LABS: Bilirubin Negative (Negative); Blood Negative (Negative); Clarity Clear (Clear); Glucose Negative (Negative); Ketones Negative (Negative); Leukocyte Esterase Negative (Negative); Nitrite Negative (Negative); Specific Gravity 1.015 (1.005-1.025); Urobilinogen 0.2 mg/dL (Up to 0.2); pH 6.5 (5-8)
[2024-06-15 13:15] LABS: ALT 11 U/L (16-63); AST 16 U/L (15-37); Albumin 3.4 g/dL (3.4-5.0); Alkaline Phosphatase 85 U/L (46-116); Anion Gap 6.2 mmol/L (3-11); BUN 18 mg/dL (7-18); Bilirubin, Total 2.85 mg/dL (0.2-1.0); CO2 29.8 mmol/L (21.0-32.0); CREATININE 1.5 mg/dL (0.70-1.30); Calcium 9.7 mg/dL (8.5-10.1); Chloride 108 mmol/L (98-107); Estimated GFR 48.25 (mL/min/1.73m2); Glucose 133 mg/dL (74-106); Magnesium 1.3 mg/dL (1.8-2.4); PHOSPHORUS 2.7 mg/dL (2.6-4.7); Potassium 4.1 mmol/L (3.5-5.1); Sodium 144 mmol/L (136-145); Total Protein 7.3 g/dL (6.4-8.2)
[2024-06-15 13:33] LABS: Bacteria Rare HPF (Negative); Crystals Few Calcium Oxalate HPF (Negative); Epithelial Cells Negative HPF (Negative); WBC 0-2 HPF (0-5)
[2024-06-15 13:34] LABS: C & S Indicated? No; Casts Negative LPF (Negative); Mucus Negative (Negative)
[2024-06-16 13:57] LABS: Tacrolimus 11.4 ng/mL (See Note)
== END 2024-06-15 02:37 | disposition home or self-care (01) ==
PROVIDERS: PCP Family Medicine; Visit Provider Internal Medicine Nephrology
DX: Z94.0 Kidney transplant status (principal); Z94.83 Pancreas transplant status; Z79.899 Other long term (current) drug therapy; Z29.81 Encounter for HIV pre-exposure prophylaxis
CPT/HCPCS: 36415; 80053; 80197; 81003; 81015; 82465; 82565; 83735; 84100; 84156; 84550; 85025

== ENCOUNTER 2024-09-01 10:26 | Outpatient (CLI) | payer MEDICARE, SELFPAY ==
[2024-09-01 14:13] LABS: Abs Immature Grans 0.02 10^3/uL (0.0-0.06); Absolute Basophil Count 0.08 10^3/uL (0.0-0.2); Absolute Eosinophil Count 0.32 10^3/uL (0.0-0.7); Absolute Lymphocyte Count 1.04 10^3/uL (1.2-3.4); Absolute Monocyte Count 0.63 10^3/uL (0.1-0.8); Absolute Neutrophil Count 5.11 10^3/uL (1.2-6.7); Basophils % 1.1 %; Eosinophils % 4.4 %; HCT 39.4 % (40.0-50.0); HGB 13.1 g/dL (13.5-17.5); Immature Grans % 0.3 %; Lymphocytes % 14.4 %; MCH 29.8 pg (27.0-33.0); MCHC 33.2 % (32.0-36.0); MCV 90 fL (80-95); MPV 9.6 fL (8.0-11.0); Monocytes % 8.8 %; Platelet Count 223 10^3/uL (130-400); RDW 14.4 % (11.8-14.1); RDW-SD 46.8 fL
[2024-09-01 14:30] LABS: Bilirubin Negative (Negative); Blood Negative (Negative); Clarity Clear (Clear); Glucose Negative (Negative); Ketones Negative (Negative); Leukocyte Esterase Negative (Negative); Nitrite Negative (Negative); Specific Gravity 1.015 (1.005-1.025); Urobilinogen 0.2 mg/dL (Up to 0.2); pH 6.5 (5-8)
[2024-09-01 14:43] LABS: COMMENT (LAB VIEW ONLY) 50.64 mg/dL; PROTEIN 12.9 mg/dL; Prot/Crea Ur Ratio 0.25
[2024-09-01 14:55] LABS: ALT 23 U/L (16-63); AST 17 U/L (15-37); Albumin 3.5 g/dL (3.4-5.0); Alkaline Phosphatase 75 U/L (46-116); Anion Gap 9.1 mmol/L (3-11); BUN 21 mg/dL (7-18); Bilirubin, Total 3.17 mg/dL (0.2-1.0); CO2 29.9 mmol/L (21.0-32.0); CREATININE 1.4 mg/dL (0.70-1.30); Calcium 9.9 mg/dL (8.5-10.1); Chloride 107 mmol/L (98-107); Cholesterol 81 mg/dL (<200); Estimated GFR 52.09 (mL/min/1.73m2); Glucose 140 mg/dL (74-106); Magnesium 1.2 mg/dL (1.8-2.4); Potassium 3.6 mmol/L (3.5-5.1); Sodium 146 mmol/L (136-145); Total Protein 7.4 g/dL (6.4-8.2)
[2024-09-02 13:19] LABS: Tacrolimus 10.8 ng/mL (See Note)
== END 2024-09-01 10:27 | disposition home or self-care (01) ==
PROVIDERS: PCP Family Medicine; Visit Provider Internal Medicine Nephrology
DX: Z94.0 Kidney transplant status (principal); Z94.83 Pancreas transplant status; Z79.899 Other long term (current) drug therapy; Z29.81 Encounter for HIV pre-exposure prophylaxis
CPT/HCPCS: 36415; 80053; 80197; 81003; 82465; 82565; 83735; 84100; 84156; 84550; 85025

== ENCOUNTER 2024-09-12 11:09 | Inpatient (IN) | payer MEDICARE, SELFPAY ==
[2024-09-12] VITALS (29 sets, daily range): BP systolic 123–149; BP diastolic 42–86; PULSE 47–81; RESP 8–25; TEMP 36.3–37.5; O2SAT 88–97
--- NOTE | 2024-09-12 11:30 | RT.EKG_ITS ---
APPROVED REPORT Exam: Resting ECG Reason for Exam: sob Patient Location: E HR:60 bpm ECG Measurements Heart Rate 60 AXIS VA 65 P 0 QRSd 178 QRS -68 QT 494 T 110 QTc 495 Conclusion Ventricular-paced rhythm
--- NOTE | 2024-09-12 12:00 | ED.GENADUL_ITS ---
Discharge Plan Disposition Patient Disposition: Admit to [facility] Condition: Stable Discharge Details Chief Complaint: RespSymp Clinical Impression: MILIAN (dyspnea on exertion), Acute exacerbation of CHF (congestive heart failure) Primary Care Provider: Urbano Jimenez ED Provider: Tal Plascencia [place] Meds and New Rx's Prescriptions: No Action omeprazole 20 mg capsule,delayed release(DR/EC) 20 mg PO DAILY PRN (Reason: GERD) Qty: 90 3RF metformin 500 mg tablet 500 mg PO BID Qty: 180 3RF hydralazine 100 mg tablet 100 mg PO BID Qty: 180 3RF nitroglycerin 0.4 mg tablet, sublingual 0.4 mg SL Q5M PRN (Reason: chest pain) Qty: 30 0RF magnesium gluconate 27 mg magnesium (500 mg) tablet 27 mg PO TID Rx Instructions: QAM 1,000 mg Noon 500 mg QPM 1,000 mg potassium chloride 20 mEq tablet extended release 20 meq PO DAILY Qty: 90 3RF (DME) blood sugar diagnostic Strip See Rx Instructions .ROUTE .MEDSUPPLY Qty: 180 4RF Rx Instructions: test BID (DME) lancets 28 gauge misc 1 ea Miscellaneous DAILY Qty: 100 6RF Rx Instructions: FOR ONE TOUCH ULTRA MINI METER. NO INSULIN. DIAGNOSIS CODE E11.3 Test BID mycophenolate mofetil [CellCept] 250 MG capsule 250 mg PO BID ascorbic acid (vitamin C) [Vitamin C] 500 MG capsule, extended release 500 mg PO TID Centrum Silver 0.4-300-250 mg-mcg-mcg tablet 2 tab PO DAILY aspirin [Adult Low Dose Aspirin] 81 mg tablet,delayed release (DR/EC) 81 mg PO DAILY acetaminophen 500 mg capsule 500 mg PO Q8H PRN PRN (Reason: pain) (DME) blood-glucose meter Misc 1 ea Miscellaneous DAILY Qty: 1 0RF Rx Instructions: FOR ONE TOUCH ULTRA MINI; Dx E11.9, to keep HbA1c less than 6.5% tacrolimus [Prograf] 1 mg capsule 1 mg PO BID glipizide 10 mg tablet extended release 24hr 10 mg PO BID Qty: 180 3RF saxagliptin 5 mg tablet 5 mg PO DAILY Qty: 90 3RF amlodipine 5 mg tablet 5 mg PO DAILY Qty: 90 3RF metoprolol succinate 50 mg tablet extended release 24 hr 75 mg PO BID Qty: 180 3RF tamsulosin 0.4 mg capsule 0.4 mg PO DAILY Qty: 90 3RF atorvastatin 40 mg tablet 40 mg PO QHS Qty: 90 3RF levothyroxine 137 mcg tablet 137 mcg PO DAILY Qty: 90 3RF furosemide 40 mg tablet 40 mg PO DAILY Qty: 90 0RF calcitriol 0.5 mcg capsule 0.5 mcg PO DAILY Patient Comments: TAKE ONE CAPSULE BY MOUTH EVERY DAY HPI General Mode of arrival: ambulatory . Date/Time Provider Initiated Documentation: 09/12/24 11:34 . Limitations to Documentation: no limitations . Information obtained by: patient . History of Present Illness 74 year old M presents to the emergency department with the chief complaint of dyspnea, described as moderate, Patient started experiencing this week(s) (2) and it has been constant. Rest improves symptom(s), Movement worsens symptoms . Patient notes no other symptoms.. Patient did receive the following treatments prior to arrival, none Related Data Home Medications ?Medication ?Instructions ?Recorded ?Confirmed mycophenolate mofetil 250 mg 250 mg PO BID 04/15/16 09/12/24 capsule (CellCept) ascorbic acid (vitamin C) 500 mg 500 mg PO TID 09/05/16 09/12/24 capsule,extended release (Vitamin C) omeprazole 20 mg capsule,delayed 20 mg PO DAILY PRN GERD #90 caps 06/17/19 09/12/24 release [id number] acid 0.4 2 tab PO DAILY 01/16/21 09/12/24 mg-lycopene 300 mcg-lutein 250 mcg tablet (Centrum Silver) acetaminophen 500 mg capsule 500 mg PO Q8H PRN PRN pain 07/17/22 09/12/24 aspirin 81 mg tablet,delayed 81 mg PO DAILY 07/17/22 09/12/24 release (Adult Low Dose Aspirin) blood-glucose meter #1 ea 10/06/22 09/12/24 tacrolimus 1 mg capsule, 1 mg PO BID 06/25/23 09/12/24 immediate-release (Prograf) hydralazine 100 mg tablet 100 mg PO BID #180 tabs 10/12/23 09/12/24 metformin 500 mg tablet 500 mg PO BID #180 tabs 10/12/23 09/12/24 glipizide 10 mg tablet, extended 10 mg PO BID #180 tabs 12/03/23 09/12/24 release 24 hr saxagliptin 5 mg tablet 5 mg PO DAILY #90 tabs 04/07/24 09/12/24 calcitriol 0.5 mcg capsule 0.5 mcg PO DAILY 05/16/24 09/12/24 amlodipine 5 mg tablet 5 mg PO DAILY #90 tabs 05/23/24 09/12/24 atorvastatin 40 mg tablet 40 mg PO QHS #90 tabs 05/23/24 09/12/24 metoprolol succinate 50 mg 75 mg (1.5 x 50 mg) PO BID #180 05/23/24 09/12/24 tablet,extended release 24 hr tabs tamsulosin 0.4 mg capsule 0.4 mg PO DAILY #90 tab-caps 05/23/24 09/12/24 levothyroxine 137 mcg tablet 137 mcg PO DAILY #90 tab-caps 05/26/24 09/12/24 nitroglycerin 0.4 mg sublingual 0.4 mg sublingual Q5M PRN chest 06/17/24 09/12/24 tablet pain #30 tabs blood sugar diagnostic #180 ea 07/11/24 09/12/24 lancets 28 gauge #100 ea 07/11/24 09/12/24 magnesium gluconate 27 mg 27 mg PO TID 07/11/24 09/12/24 magnesium (500 mg) tablet potassium chloride 20 mEq 20 meq PO DAILY #90 tabs 07/11/24 09/12/24 tablet,extended release furosemide 40 mg tablet 40 mg PO DAILY #90 tabs 08/29/24 09/12/24 Previous Rx's ?Medication ?Instructions ?Recorded omeprazole 20 mg capsule,delayed 20 mg PO DAILY PRN GERD #90 caps 06/17/19 release blood-glucose meter #1 ea 10/06/22 hydralazine 100 mg tablet 100 mg PO BID #180 tabs 10/12/23 metformin 500 mg tablet 500 mg PO BID #180 tabs 10/12/23 glipizide 10 mg tablet, extended 10 mg PO BID #180 tabs 12/03/23 release 24 hr saxagliptin 5 mg tablet 5 mg PO DAILY #90 tabs 04/07/24 amlodipine 5 mg tablet 5 mg PO DAILY #90 tabs 05/23/24 atorvastatin 40 mg tablet 40 mg PO QHS #90 tabs 05/23/24 metoprolol succinate 50 mg 75 mg (1.5 x 50 mg) PO BID #180 05/23/24 tablet,extended release 24 hr tabs tamsulosin 0.4 mg capsule 0.4 mg PO DAILY #90 tab-caps 05/23/24 levothyroxine 137 mcg tablet 137 mcg PO DAILY #90 tab-caps 05/26/24 nitroglycerin 0.4 mg sublingual 0.4 mg sublingual Q5M PRN chest 06/17/24 tablet pain #30 tabs blood sugar diagnostic #180 ea 07/11/24 lancets 28 gauge #100 ea 07/11/24 potassium chloride 20 mEq 20 meq PO DAILY #90 tabs 07/11/24 tablet,extended release furosemide 40 mg tablet 40 mg PO DAILY #90 tabs 08/29/24 Allergies Allergy/AdvReac Type Severity Reaction Status Date / Time strawberry Allergy Unknown Other (See Verified 09/12/24 11:18 Comment) IV contrast AdvReac Severe Other (See Uncoded 09/12/24 11:18 Comment) General Stated Complaint: RespSymp ALICIA: 3 Review of Systems All systems reviewed & are unremarkable except as noted in HPI and below Constitutional Constitutional: Denies chills, Denies fever(s) and Denies weakness Cardiovascular Cardiovascular: Denies chest pain and Reports dyspnea Respiratory Respiratory: Denies cough and Reports dyspnea Gastrointestinal Gastrointestinal: Denies abdominal pain, Denies nausea and Denies vomiting Neurologic Neurologic: Denies weakness Psychiatric Psychiatric: Denies depression Exam Const General: no acute distress Orientation: alert HENMT Head: normal to inspection Ears: external ears normal General nose exam: external nose normal Mouth: moist mucous membranes Eyes General: appearance normal, both eyes and all related structures Neck Neck: normal visual inspection Resp Effort & Inspection: normal respiratory effort and able to speak in complete sentences Auscultation: crackles Cardio Rate: regular rate Skin General skin exam: no rashes or lesions noted Neuro General: patient alert and patient oriented x3 Extrem General: edema Psych Mental Status: mental status grossly normal Course Vital Signs Vital signs: Vital Signs Temperature 36.7 C 09/12/24 11:15 Pulse 79 09/12/24 11:15 Respiratory Rate 24 09/12/24 11:15 Blood Pressure 149/81 H 09/12/24 11:15 Pulse Oximetry 93 09/12/24 11:15 Temperature 36.7 C 09/12/24 11:15 Pulse 79 09/12/24 11:15 Respiratory Rate 24 09/12/24 11:15 Blood Pressure 149/81 H 09/12/24 11:15 Blood Pressure Position Sitting 09/12/24 11:15 Pulse Oximetry 93 09/12/24 11:15 Oxygen Delivery Method Room Air 09/12/24 11:15 Oxygen Flow Rate 0 09/12/24 11:15 Medical Decision Making 74-year-old male with a history of prior kidney transplant, pacemaker, A-fib status post Watchman procedure comes in with several weeks of worsening shortness of breath with exertion. States his legs are more swollen than normal as well. He has been taking his 40 mg of daily Lasix. Denies any chest pain or chest pressure, no fevers. He is well-appearing on exam. Does have crackles at the bases bilaterally and pitting edema up to the mid tibia bilaterally with no calf tenderness. Suspect CHF exacerbation, will check CBC, CMP, proBNP and troponins. Also obtain a chest x-ray to further evaluate and give him a dose of IV Lasix while labs and x-ray are pending. Patient's labs show elevated proBNP otherwise no significant changes from baseline. X-ray does show pleural effusions and possible pulmonary edema. Patient is stable. He states that he gets very dyspneic when he tries to move at all, will discuss with hospitalist about admission. Differential Diagnosis Differential Diagnosis: CHF, anemia, electrolyte abnormality, NSTEMI Medical Records Medical records reviewed: Yes I reviewed the patient's medical records. Lab Data Lab results reviewed: Yes I reviewed the patient's lab results. ECG Data Attestation: I personally reviewed and interpreted this ECG (s) as follows: Prior ECG tracings: available for review Interpretation: Ventricular paced rhythm, rate of 60, QTc 495 Quality:SDOH Health Related Social Needs: No Data to Display PFSH All Active Problems (Updated 05/18/24 @ 00:08 by YUE ENGEL) Acute exacerbation of CHF (congestive heart failure) (Acute) MILIAN (dyspnea on exertion) (Acute) Hypertrophic toenail (Acute) Hyperbilirubinemia (Acute) Squamous cell skin cancer (Acute) Atypical pigmented skin lesion (Acute) Pigmented skin lesion (Acute) Gout (Chronic) KIDNEY TRANSPLANT (Acute 09/16/15) [facility] [place]-09/16/15 Acute diverticulitis (Acute) Physical deconditioning (Acute) Gait difficulty (Acute) Meibomian gland dysfunction (MGD) of upper and lower eyelid of left eye (Acute ~08/2022) Meibomian gland dysfunction (MGD) of upper and lower eyelid of right eye (Acute ~08/2022) [place] (degenerative) of macula, bilateral (Acute) [place] note 08/15/22 Age-related nuclear cataract, bilateral (Acute) [place] note 08/15/22 Dry mouth (Acute) Periodic limb movement disorder (Acute) Central sleep apnea (Acute) longterm current use of immunosuppressive drug (Acute) Diverticulitis of intestine with perforation (Acute) Pacemaker (Acute) dual lead [employer] [place] 01/31/2022 RIGHT SIDED Presence of Watchman left atrial appendage closure device (Acute) [facility] [place] 05/27 Long-term current use of immunosuppressive biologic agent (Chronic) Vitamin D deficiency (Acute ~05/2022) Osteoarthritis of left knee (Acute) Parkinsonism (Acute) Tremor (Acute) Acute diverticulitis (Acute) - confirmed by CT , inpt at [facility] Bradycardia (Chronic) Vasogenic edema (Acute) Hypertension (Chronic) Hiccups (Acute) 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, tx at [facility] [place], anticoagulant stopped Altered mental status (Acute) Hypertensive retinopathy (Acute ~09/27/20) [place] 09/27/20- MILD TO MODERATE-KB Spinal stenosis (Acute) L5-S1 Subsequent non-ST elevation (NSTEMI) myocardial infarction within 4 weeks of initial infarction (Acute) stents Status post rotator cuff repair (Acute) Postoperative stiffness of total knee replacement (Chronic) Olecranon bursitis, left elbow (Chronic) Arthritis of left elbow (Acute) Tubular adenoma (Acute 09/12/15) 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 cigar Stroke, embolic (Acute 05/29/14) Status post total knee replacement, right (Acute 01/08/18) Sensorineural hearing loss, bilateral (Acute 11/27/16) The patient has a bilateral moderate high frequency sensorineural hearing lo ss. Microscopic hematuria (Acute 05/21/12) neg work[facility] [place]. 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 Need dialysis or transplant. 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 s/p hernia repair b. s/p knee arthroscopy c. s/p unspecified shoulder surgery d. s/p vasectomy Medical History History of diverticulitis (09/14/22) Fistula Obstructive sleep apnea Myocardial infarction Hepatitis C Treated and cured Chronic kidney disease Hypothyroidism CVA (cerebral vascular accident) CHF (congestive heart failure) Diabetes HTN (hypertension) Hyperlipemia GERD (gastroesophageal reflux disease) BPH (benign prostatic hyperplasia) Atrial fibrillation Surgical History History of arthroscopy of knee History of biopsy H/O bladder repair surgery History of hernia repair H/O vasectomy Rotator Cuff Repair left Colonoscopy - [facility] [place] 2009 BIOPSY, KIDNEY (10/16/14) [facility] [place]-RIGHT Arthroplasty of knee 2006-right Family History Mother Essential hypertension Father Myocardial infarction Stroke Brother Essential hypertension Neoplasm Social History Smoking/Tobacco Use Status: Current-Occasional Tobacco Type: cigars Tobacco: How many years used: 20 Quit status: not considering quitting Smoking risk assessment performed?: Yes Alcohol Intake: never Drug use: Occasionally Substance use type: marijuana Adopted: No Caregiver/Support person: Yes Foster care: No Household members: spouse Housing: house Number of Children: 2 number of grandchildren: 1 Communication Needs: None Education Level: high school 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 Pets and animals: Yes Pets and animals: dog(s) Sexually active: No Do you think of yourself as: straight/heterosexual Current gender identity: male What is your relationship status?: How often do you talk on the phone with friends or family?: three or more times per week Do you belong to any clubs or organized social groups?: no Panel score (0-1 are the most socially isolated patients): 2 Idalia/Adventist: None Special idalia needs: No Seatbelt use: always Helmet use: Yes Helmet use: always Drive intox or ride w/intox trackless trolley driver: No Do you feel safe at home: Yes Do you feel safe in your relationship?: Yes
[2024-09-12] MEDS: Furosemide 100 MG/10 ML VIAL 80 MG IVP ×2 (12:34→16:35)
[2024-09-12 12:36] LABS: Abs Immature Grans 0.03 10^3/uL (0.0-0.06); Absolute Basophil Count 0.07 10^3/uL (0.0-0.2); Absolute Eosinophil Count 0.44 10^3/uL (0.0-0.7); Absolute Lymphocyte Count 1.04 10^3/uL (1.2-3.4); Absolute Monocyte Count 0.58 10^3/uL (0.1-0.8); Absolute Neutrophil Count 5.15 10^3/uL (1.2-6.7); HCT 39.3 % (40.0-50.0); HGB 12.7 g/dL (13.5-17.5); Immature Grans % 0.4 %; Lymphocytes % 14.2 %; MCH 29.1 pg (27.0-33.0); MCHC 32.3 % (32.0-36.0); MCV 90 fL (80-95); MPV 9.6 fL (8.0-11.0); Monocytes % 7.9 %; Neutrophils % 70.5 %; Platelet Count 227 10^3/uL (130-400); RBC 4.36 10^6/uL (4.36-5.78); RDW 14.3 % (11.8-14.1); RDW-SD 47.2 fL; WBC 7.31 10^3/uL (4.4-10.8)
--- NOTE | 2024-09-12 12:55 | DI.RAD_ITS ---
Exam(s) XR CHEST 2V PA LATERAL EXAM: XR CHEST 2V PA LATERAL CLINICAL HISTORY: dyspnea, ?chf TECHNIQUE: 2D digital imaging was performed of the chest. Two images were obtained. PA and lateral views were obtained. COMPARISON: CR XR CHEST 2V PA LATERAL from 05/16/2024 FINDINGS: MEDIASTINUM: Normal. HEART: Cardiac pacing device is stable in position. PULMONARY VASCULATURE: Normal. LUNGS: There is flattening of the diaphragms suggesting underlying COPD. No focal consolidating infi ltrates are seen. There are prominent interstitial markings in the lungs which are unchanged and lik isabel chronic. However, interstitial edema cannot be excluded. PLEURAL SPACE: There are small pleural effusions again seen. BONE:Within normal limits for the patient's age. OTHER FINDINGS:Normal. IMPRESSION: 1. Small bilateral pleural effusions. 2. Prominence of the interstitium bilaterally. Chronic interstitial disease is suspected, however mendoza perimposed interstitial edema/pneumonitis cannot be excluded. 3. No focal consolidating infiltrates. DATA REPOSITORY: RADIATION DOSE DELIVERED:
[2024-09-12 13:03] LABS: ALT 22 U/L (16-63); AST 18 U/L (15-37); Albumin 3.4 g/dL (3.4-5.0); Alkaline Phosphatase 77 U/L (46-116); Anion Gap 7.7 mmol/L (3-11); BUN 22 mg/dL (7-18); Bilirubin, Total 3.9 mg/dL (0.2-1.0); CO2 32.3 mmol/L (21.0-32.0); CREATININE 1.5 mg/dL (0.70-1.30); Calcium 9.4 mg/dL (8.5-10.1); Chloride 106 mmol/L (98-107); Estimated GFR 47.95 (mL/min/1.73m2); Glucose 149 mg/dL (74-106); NT-proBNP 5544 pg/mL (<300); Potassium 3.3 mmol/L (3.5-5.1); Sodium 146 mmol/L (136-145); Total Protein 7.2 g/dL (6.4-8.2); Troponin I 53 ng/L (<or=76)
[2024-09-12 13:45] LABS: Troponin I 53 ng/L (<or=76)
--- NOTE | 2024-09-12 14:20 | W.PM.HP.N ---
Date of service: 09/12/24 Time of Service: 14:20 Assessment and Plan Assessment and plan (1) Acute exacerbation of CHF (congestive heart failure): Status: Acute Assessment and plan: - Last echo May 2024, showed EF 43% -Patient presented with worsening shortness of breath despite taking his 40 mg Lasix p.o. daily -Had 200 mL urine output status post 80 mg IV Lasix in the emergency department, will continue 80 mg IV twice daily -Strict I's and O's (2) Atrial fibrillation: Status: Chronic Assessment and plan: -Status post watchman (due to intracranial bleed) (3) CAD (coronary artery disease): Status: Chronic Assessment and plan: - Status post PCI to OM -Continue home metoprolol XL 50 daily, sublingual nitro as needed, daily aspirin, and atorvastatin 40 mg daily (4) Non-insulin dependent type 2 diabetes mellitus: Status: Acute Assessment and plan: - Continue home metformin -Hold home glipizide while hospitalized (5) Pacemaker: Status: Acute Assessment and plan: - Due to tachybradycardia syndrome, placed in the summer 2021 (6) Hypertension: Status: Chronic Assessment and plan: - Continue home amlodipine (7) Long-term current use of immunosuppressive biologic agent: Status: Chronic Assessment and plan: - Status post kidney transplant -Continue home CellCept and tacro History of Present Illness History of Present Illness Chief Complaint: shortness of breath Narrative: 74-year-old male with past medical history of kidney transplant, pacemaker, A-fib status post Watchman, HFrEF last echo May 2024 with an EF of 43 presented presents the emergency department complaints of worsening shortness of breath with exertion. Patient states over the last few weeks he has noticed worsening shortness of breath with exertion as well as worsening swelling in his bilateral lower extremities. He states he has been taking his 40 mg of Lasix daily but continues to notice some worsening edema and shortness of breath. He denies any headache, lightheadedness, dizziness, chest pain, cough or fever. In the emergency department the patient was noted as having normal vital signs, saturating well on room air, but on physical exam he did have significant bilateral lower extremity edema and crackles in bilateral bases. CBC and CMP were unremarkable, troponin was negative, proBNP was 5544 (was 3744 during previous hospitalization in May 2024). Chest x-ray showed bilateral pleural effusions without consolidation or infiltrate. Patient was given 80 mg of IV Lasix and immediately had 200 mL of urine output. Patient was ambulated in the emergency department but continues to have significant exertional dyspnea. At which time emergency room physician paged hospitalist for admission for patient with acute exacerbation of HFrEF requiring IV Lasix. Review of Systems All systems reviewed & are unremarkable except as noted in HPI and below PFSH All Active Problems (Updated 05/18/24 @ 00:08 by YUE ENGEL) Non-insulin dependent type 2 diabetes mellitus (Acute) CAD (coronary artery disease) (Chronic) Acute exacerbation of CHF (congestive heart failure) (Acute) MILIAN (dyspnea on exertion) (Acute) Hypertrophic toenail (Acute) Hyperbilirubinemia (Acute) Squamous cell skin cancer (Acute) Atypical pigmented skin lesion (Acute) Pigmented skin lesion (Acute) Gout (Chronic) KIDNEY TRANSPLANT (Acute 09/16/15) [facility] [place]-09/16/15 Acute diverticulitis (Acute) Physical deconditioning (Acute) Gait difficulty (Acute) Meibomian gland dysfunction (MGD) of upper and lower eyelid of left eye (Acute ~08/2022) Meibomian gland dysfunction (MGD) of upper and lower eyelid of right eye (Acute ~08/2022) [place] (degenerative) of macula, bilateral (Acute) [place] note 08/15/22 Age-related nuclear cataract, bilateral (Acute) [place] note 08/15/22 Dry mouth (Acute) Periodic limb movement disorder (Acute) Central sleep apnea (Acute) 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 immunosuppressive 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 (Acute) Diverticulitis of intestine with perforation (Acute) Pacemaker (Acute) dual lead [employer] [place] 01/31/2022 RIGHT SIDED Presence of Watchman left atrial appendage closure device (Acute) [facility] 05/27 Long-term current use of immunosuppressive biologic agent (Chronic) Vitamin D deficiency (Acute ~05/2022) Osteoarthritis of left knee (Acute) Parkinsonism (Acute) Tremor (Acute) Acute diverticulitis (Acute) - confirmed by CT , inpt at [facility] Bradycardia (Chronic) Vasogenic edema (Acute) Hypertension (Chronic) Hiccups (Acute) 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, tx at [facility], anticoagulant stopped Altered mental status (Acute) Hypertensive retinopathy (Acute ~09/27/20) [place] 09/27/20- MILD TO MODERATE-KB Spinal stenosis (Acute) L5-S1 Subsequent non-ST elevation (NSTEMI) myocardial infarction within 4 weeks of initial infarction (Acute) stents Status post rotator cuff repair (Acute) Postoperative stiffness of total knee replacement (Chronic) Olecranon bursitis, left elbow (Chronic) Arthritis of left elbow (Acute) Tubular adenoma (Acute 09/12/15) 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 Microscopic hematuria (Acute 05/21/12) [place] [facility] [place] [place] (Chronic 09/16/15) [facility]; without recipient nephrectomy ureteral stenosis with multiple surgeries Inguinal hernia, unilateral (Acute) left Hypothyroidism (Acute 04/06/15) Hypertension (Acute) GERD (gastroesophageal reflux disease) (Acute) Elevated BUN (Acute) Diverticula of colon (Acute 09/12/15) Colon polyp (Acute 06/04/03) Repeat colonoscopy-no polyps; diverticulosis Cardiomyopathy due to hypertension (Acute 11/29/14) EF 40% 09/17 CKD (chronic kidney disease) stage 3, GFR 30-59 ml/min (Acute 04/25/14) 10/18 Stage 4.. Need dialysis or transplant. 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 s/p hernia repair b. s/p knee arthroscopy c. s/p unspecified shoulder surgery d. s/p vasectomy Medical History History of diverticulitis (09/14/22) Fistula Obstructive sleep apnea Myocardial infarction Hepatitis C Treated and cured Chronic kidney disease Hypothyroidism CVA (cerebral vascular accident) CHF (congestive heart failure) Diabetes HTN (hypertension) Hyperlipemia GERD (gastroesophageal reflux disease) BPH (benign prostatic hyperplasia) Atrial fibrillation Surgical History History of arthroscopy of knee History of biopsy H/O bladder repair surgery History of hernia repair H/O vasectomy Rotator Cuff Repair left Colonoscopy - MAC 2009 BIOPSY, KIDNEY (10/16/14) [facility] [place]-RIGHT Arthroplasty of knee 2006-right Family History Mother Essential hypertension Father Myocardial infarction Stroke Brother Essential hypertension Neoplasm Social History Smoking/Tobacco Use Status: Current-Occasional Tobacco Type: cigars Tobacco: How many years used: 20 Quit status: not considering quitting Smoking risk assessment performed?: Yes Alcohol Intake: never Drug use: Occasionally Substance use type: marijuana Adopted: No Caregiver/Support person: Yes Foster care: No Household members: spouse Housing: house Number of Children: 2 number of grandchildren: 1 Communication Needs: None Education Level: high school 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 Pets and animals: Yes Pets and animals: dog(s) Sexually active: No Do you think of yourself as: straight/heterosexual Current gender identity: male What is your relationship status?: How often do you talk on the phone with friends or family?: three or more times per week Do you belong to any clubs or organized social groups?: no Panel score (0-1 are the most socially isolated patients): 2 Idalia/Hindu: None Special idalia needs: No Seatbelt use: always Helmet use: Yes Helmet use: always Drive intox or ride w/intox courier driver: No Do you feel safe at home: Yes Do you feel safe in your relationship?: Yes Meds Allergies and Home Medications Allergies Allergy/AdvReac Type Severity Reaction Status Date / Time strawberry Allergy Unknown Other (See Verified 09/12/24 11:18 Comment) IV contrast AdvReac Severe Other (See Uncoded 09/12/24 11:18 Comment) Home Medications ?Medication ?Instructions ?Recorded ?Confirmed ?Type mycophenolate mofetil 250 mg 250 mg PO BID 04/15/16 09/12/24 History capsule (CellCept) ascorbic acid (vitamin C) 500 mg 500 mg PO TID 09/05/16 09/12/24 History capsule,extended release (Vitamin C) omeprazole 20 mg capsule,delayed 20 mg PO DAILY PRN GERD #90 caps 06/17/19 09/12/24 Rx release oyrnkybh-lef-udyio acid 0.4 2 tab PO DAILY 01/16/21 09/12/24 History mg-lycopene 300 mcg-lutein 250 mcg tablet (Centrum Silver) acetaminophen 500 mg capsule 500 mg PO Q8H PRN PRN pain 07/17/22 09/12/24 History aspirin 81 mg tablet,delayed 81 mg PO DAILY 07/17/22 09/12/24 History release (Adult Low Dose Aspirin) blood-glucose meter #1 ea 10/06/22 09/12/24 Rx tacrolimus 1 mg capsule, 1 mg PO BID 06/25/23 09/12/24 History immediate-release (Prograf) hydralazine 100 mg tablet 100 mg PO BID #180 tabs 10/12/23 09/12/24 Rx metformin 500 mg tablet 500 mg PO BID #180 tabs 10/12/23 09/12/24 Rx glipizide 10 mg tablet, extended 10 mg PO BID #180 tabs 12/03/23 09/12/24 Rx release 24 hr saxagliptin 5 mg tablet 5 mg PO DAILY #90 tabs 04/07/24 09/12/24 Rx calcitriol 0.5 mcg capsule 0.5 mcg PO DAILY 05/16/24 09/12/24 History amlodipine 5 mg tablet 5 mg PO DAILY #90 tabs 05/23/24 09/12/24 Rx atorvastatin 40 mg tablet 40 mg PO QHS #90 tabs 05/23/24 09/12/24 Rx metoprolol succinate 50 mg 75 mg (1.5 x 50 mg) PO BID #180 05/23/24 09/12/24 Rx tablet,extended release 24 hr tabs tamsulosin 0.4 mg capsule 0.4 mg PO DAILY #90 tab-caps 05/23/24 09/12/24 Rx levothyroxine 137 mcg tablet 137 mcg PO DAILY #90 tab-caps 05/26/24 09/12/24 Rx nitroglycerin 0.4 mg sublingual 0.4 mg sublingual Q5M PRN chest 06/17/24 09/12/24 Rx tablet pain #30 tabs blood sugar diagnostic #180 ea 07/11/24 09/12/24 Rx lancets 28 gauge #100 ea 07/11/24 09/12/24 Rx magnesium gluconate 27 mg 27 mg PO TID 07/11/24 09/12/24 History magnesium (500 mg) tablet potassium chloride 20 mEq 20 meq PO DAILY #90 tabs 07/11/24 09/12/24 Rx tablet,extended release furosemide 40 mg tablet 40 mg PO DAILY #90 tabs 08/29/24 09/12/24 Rx Exam Narrative Exam Narrative: Well-appearing older gentleman sitting up in the edge of the bed no acute distress, ANO x 4, heart regular rhythm, lungs with mild crackles in bilateral bases, abdomen soft, nontender, nondistended, +3 pitting edema bilateral lower extremities to the mid waterman Results Labs 09/12/24 12:29 09/12/24 12:29 Labs: Laboratory Results - last 24 hr 09/12/24 09/12/24 09/12/24 12:29 12:29 13:13 WBC 7.31 RBC 4.36 Hgb 12.7 L Hct 39.3 L MCV 90 MCH 29.1 MCHC 32.3 RDW 14.3 H Plt Count 227 MPV 9.6 Immature Gran % 0.4 Neutrophils % 70.5 Lymphocytes % 14.2 Monocytes % 7.9 Eosinophils % 6.0 Basophils % 1.0 Nucleated RBC % 0.0 Absolute Neutrophils 5.15 Absolute Lymphocytes 1.04 L Absolute Monocytes 0.58 Absolute Eosinophils 0.44 Absolute Basophils 0.07 Sodium 146 H Potassium 3.3 L Chloride 106 Carbon Dioxide 32.3 H Anion Gap 7.7 BUN 22 H Creatinine 1.5 H Est GFR (CKD-EPI 2020) 47.95 Glucose 149 H Calcium 9.4 Total Bilirubin 3.9 H AST 18 ALT 22 Alkaline Phosphatase 77 Troponin I 53 Cancelled 53 NT-Pro-B Natriuret Pep 5544 H Total Protein 7.2 Albumin 3.4 Last Vital Signs Temp 98.1 F 09/12/24 13:04 Pulse 51 L 09/12/24 13:20 Resp 15 09/12/24 13:20 BP 149/81 H 09/12/24 13:04 Pulse Ox 93 09/12/24 13:20 Time Spent Time spent with Patient: >75 minutes Time was spent: preparing to see the patient(eg.review tests), obtaining and/or reviewing separately otained hiistory, ordering medications,tests, procedures, referring, communicating with other health toddler caregiver, indepentently interpreting results, counseling the patient and care coordination
--- NOTE | 2024-09-12 15:31 | W.PC.ACHO ---
Registration Status: Primary Language: Preferred Language: ED Information & Data Chief Complaint RespSymp 09/12/24 13:04 Chief Complaint RespSymp 09/12/24 12:06 Triage Note PT reports persistent 09/12/24 11:15 shortness of breath starting several weeks ago. SOB regardless of activity level . PT reports that the PT needed to be treated with lasix last time he was in the hospital. Medical / Surgical History (Last Reviewed 05/16/24 @ 16:57 by Sukumar Vega MD) History of diverticulitis (09/14/22) Fistula Obstructive sleep apnea Myocardial infarction Hepatitis C Chronic kidney disease Hypothyroidism CVA (cerebral vascular accident) CHF (congestive heart failure) Diabetes HTN (hypertension) Hyperlipemia GERD (gastroesophageal reflux disease) BPH (benign prostatic hyperplasia) Atrial fibrillation (Last Reviewed 05/16/24 @ 16:57 by Sukumar Vega MD) History of arthroscopy of knee History of biopsy H/O bladder repair surgery History of hernia repair H/O vasectomy Rotator Cuff Repair Colonoscopy - MAC BIOPSY, KIDNEY (10/16/14) Arthroplasty of knee Most Recent Vital Signs Temperature 36.7 C 09/12/24 13:04 Pulse 51 L 09/12/24 14:50 Pulse 51 L 09/12/24 14:50 Respiratory Rate 24 09/12/24 14:50 Respiratory Effort Short of Breath 09/12/24 13:04 Respiratory Depth Normal 09/12/24 13:04 Blood Pressure 129/63 09/12/24 14:46 Blood Pressure Mean 86 09/12/24 14:46 Blood Pressure Position Sitting 09/12/24 13:04 Pulse Oximetry 91 L 09/12/24 14:46 Oxygen Delivery Method Room Air 09/12/24 13:04 Oxygen Flow Rate 0 09/12/24 13:04 Pain Level 0 09/12/24 15:06 Allergies strawberry Allergy (Unknown, Verified 09/12/24 11:18) Other (See Comment) per patient, numb in the mouth IV contrast Adverse Reaction (Severe, Uncoded 09/12/24 11:18) Other (See Comment) Renal transplant, no IV contrast per transplant team IV IV Catheter Type [Right Saline Lock Antecubital] IV Catheter Gauge [Right 20 Antecubital] Diet Orders Category Date Time Status Diabetes Consistent CHO/Heart Healthy [DIET] Nutrition 09/12/24 Dinner Active Diagnostics 09/12/24 09/12/24 09/12/24 Range/Units 15:00 13:13 12:29 WBC (4.4-10.8) 10^3/uL RBC (4.36-5.78) 10^6/uL Hgb (13.5-17.5) g/dL Hct (40.0-50.0) % MCV (80-95) fL MCH (27.0-33.0) pg MCHC (32.0-36.0) % RDW (11.8-14.1) % Plt Count (130-400) 10^3/uL MPV (8.0-11.0) fL Immature Gran % % Neutrophils % % Lymphocytes % % Monocytes % % Eosinophils % % Basophils % % Nucleated RBC % (0.0-0.3) % Absolute Neutrophils (1.2-6.7) 10^3/uL Absolute Lymphocytes (1.2-3.4) 10^3/uL Absolute Monocytes (0.1-0.8) 10^3/uL Absolute Eosinophils (0.0-0.7) 10^3/uL Absolute Basophils (0.0-0.2) 10^3/uL Sodium (136-145) mmol/L Potassium (3.5-5.1) mmol/L Chloride (98-107) mmol/L Carbon Dioxide (21.0-32.0) mmol/L Anion Gap (3-11) mmol/L BUN (7-18) mg/dL Creatinine (0.70-1.30) mg/dL Est GFR (CKD-EPI 2020) (mL/min/1.73m2) Glucose (74-106) mg/dL Calcium (8.5-10.1) mg/dL Total Bilirubin (0.2-1.0) mg/dL AST (15-37) U/L ALT (16-63) U/L Alkaline Phosphatase (46-116) U/L Troponin I Pending 53 Cancelled (<or=76) ng/L NT-Pro-B Natriuret Pep 5544 H (<300) pg/mL Total Protein 7.2 (6.4-8.2) g/dL Albumin 3.4 (3.4-5.0) g/dL 09/12/24 Range/Units 12:29 WBC 7.31 (4.4-10.8) 10^3/uL RBC 4.36 (4.36-5.78) 10^6/uL Hgb 12.7 L (13.5-17.5) g/dL Hct 39.3 L (40.0-50.0) % MCV 90 (80-95) fL MCH 29.1 (27.0-33.0) pg MCHC 32.3 (32.0-36.0) % RDW 14.3 H (11.8-14.1) % Plt Count 227 (130-400) 10^3/uL MPV 9.6 (8.0-11.0) fL Immature Gran % 0.4 % Neutrophils % 70.5 % Lymphocytes % 14.2 % Monocytes % 7.9 % Eosinophils % 6.0 % Basophils % 1.0 % Nucleated RBC % 0.0 (0.0-0.3) % Absolute Neutrophils 5.15 (1.2-6.7) 10^3/uL Absolute Lymphocytes 1.04 L (1.2-3.4) 10^3/uL Absolute Monocytes 0.58 (0.1-0.8) 10^3/uL Absolute Eosinophils 0.44 (0.0-0.7) 10^3/uL Absolute Basophils 0.07 (0.0-0.2) 10^3/uL Sodium 146 H (136-145) mmol/L Potassium 3.3 L (3.5-5.1) mmol/L Chloride 106 (98-107) mmol/L Carbon Dioxide 32.3 H (21.0-32.0) mmol/L Anion Gap 7.7 (3-11) mmol/L BUN 22 H (7-18) mg/dL Creatinine 1.5 H (0.70-1.30) mg/dL Est GFR (CKD-EPI 2020) 47.95 (mL/min/1.73m2) Glucose 149 H (74-106) mg/dL Calcium 9.4 (8.5-10.1) mg/dL Total Bilirubin 3.9 H (0.2-1.0) mg/dL AST 18 (15-37) U/L ALT 22 (16-63) U/L Alkaline Phosphatase 77 (46-116) U/L Troponin I 53 (<or=76) ng/L NT-Pro-B Natriuret Pep (<300) pg/mL Total Protein (6.4-8.2) g/dL Albumin (3.4-5.0) g/dL Intake and Output - 24 Hour Total 09/12/24 11:09 thru 09/12/24 14:22 Intake Total 118 Output Total 450 Balance -332 Weight 99.79 kg Intake: Oral 118 Output: Urine 450 Falls Risk Assessment History of Falls No History 09/12/24 13:04 Contributing Factors No Factors 09/12/24 13:04 Ambulatory Aids Independent 09/12/24 13:04 Tubes/Lines None 09/12/24 13:04 Gait Evaluation No gait disturbance 09/12/24 13:04 Cognition No cognitive impairment 09/12/24 13:04 Fall Total Score 0 09/12/24 13:04 Level of Risk Standard/Low Risk 09/12/24 13:04 Problems (Last Reviewed 05/16/24 @ 16:57 by Sukumar Vega MD) Non-insulin dependent type 2 diabetes mellitus (Acute) CAD (coronary artery disease) (Chronic) Acute exacerbation of CHF (congestive heart failure) (Acute) Pacemaker (Acute) Long-term current use of immunosuppressive biologic agent (Chronic) Hypertension (Chronic) Atrial fibrillation (Chronic 05/29/14) v v v v v v v v v Sending and/or Receiving Nurses: Please use comment section below to note any information pertinent to the patient hand-off not included above. Information / Comments: Report received from: report called to APRIL sawyer RN at 15:02
[2024-09-12 15:50] LABS: Troponin I 48 ng/L (<or=76)
[2024-09-12] MEDS: Normal Saline Flush 10 ML SYR IVP ×2 (16:36→20:25)
[2024-09-12] MEDS: metFORMIN 500 MG TAB PO (16:36)
[2024-09-12] MEDS: Tacrolimus 0.5 MG CAP 1 MG PO (20:20)
[2024-09-12] MEDS: Mycophenolate Mofetil 250 MG CAP PO (20:21)
[2024-09-12] MEDS: hydrALAZINE 25 MG TAB 100 MG PO (20:21)
[2024-09-12] MEDS: Atorvastatin 40 MG TAB PO (20:21)
[2024-09-12] MEDS: Magnesium Gluconate 500 MG TAB 1000 MG PO (20:21)
[2024-09-13 04:14] VITALS: BP 145/67; PULSE 54; RESP 17; TEMP 36.9; O2SAT 94
[2024-09-13 06:46] LABS: HGB 12.1 g/dL (13.5-17.5); MCH 29.1 pg (27.0-33.0); MCHC 32.7 % (32.0-36.0); MCV 89 fL (80-95); MPV 9.6 fL (8.0-11.0); Platelet Count 216 10^3/uL (130-400); RBC 4.16 10^6/uL (4.36-5.78); RDW 14.2 % (11.8-14.1); RDW-SD 45.9 fL; WBC 7.46 10^3/uL (4.4-10.8)
[2024-09-13 06:51] LABS: Anion Gap 5.9 mmol/L (3-11); BUN 23 mg/dL (7-18); CO2 32.1 mmol/L (21.0-32.0); CREATININE 1.5 mg/dL (0.70-1.30); Calcium 8.9 mg/dL (8.5-10.1); Chloride 107 mmol/L (98-107); Estimated GFR 47.95 (mL/min/1.73m2); Glucose 108 mg/dL (74-106); Magnesium 1.2 mg/dL; Sodium 145 mmol/L (136-145)
[2024-09-13 07:06] LABS: Potassium 2.9 mmol/L (3.5-5.1)
[2024-09-13 08:35] VITALS: BP 145/67; PULSE 57; RESP 18; TEMP 37.1; O2SAT 93
--- NOTE | 2024-09-13 09:52 | PDOC.CMIN ---
Date of service: 09/13/24 Time of Service: 09:52 Care Management Initial Assmt Initial Assessment Reason for Hospitalization: CHF Functional Status/Living Situation Patient Presentation: Yash was sitting up on the side of the bed when CM met with him. He was alert and oriented and easily engaged with CM. Yash was admitted with CHF, a diagnosis he has carried for many years. Yash informed CM that he weighs himself every day and takes his medications as prescribed. He did admit that he is not always compliant with his dietary restrictions. Yash lives in a single family home in [place] with his Mara. They have 2 sons; one lives in [place] and the other is in [place]. Yash indicated that he is closer to the son who lives locally. Yash has been retired since age 53 from a career with the [employer]. He is independent at baseline and does not receive any services. Town of Residence: [place] Resides with: Spouse ( Mara) Significant Other/Family: Out of area (one son local one in [place]) Employment Status: Retired Instrumental Activities of Daily Living (ADLs): Independent Medications Medication Management: No Issues/Barriers identified Advance Directives Advance Directives: Do you have an Advance Directive: N 04/25/14 15:11 AD On File at [facility]: N 04/25/14 14:09 Date Asked 09/12/24 09/12/24 11:16 AD Date Reviewed COLST On File at [facility] COLST Date Scanned Code Status Resuscitation Status Full Code Insurance Coverage/Financial Issues Insurance: [facility] Medicare replacement Care Team Visit Care Team Role Provider Type Urbano Jimenez DO Primary Care Provider OSTEOPATHIC DOCTOR Tal Plascencia MD Emergency Provider [facility] STAFF PHYSICIAN Kameron Morales MD Admit Provider [facility] STAFF PHYSICIAN Attending Provider Discharge Potential Discharge Needs: PCP F/U Appt Anticipated Barriers to Discharge: None Identified Patient/Family Education Needs: Review discharge instructions, discuss Ask Me Three Transportation: Private vehicle Plan: Anticipate Yash will be discharged home with no new services when medically cleared. He will follow up with his PCP and plan of care and transport with family. CM will follow and continue to assess for discharge needs. Social Determinants of Health Screening Social Determinants of Health last assessed: 09/13/24 Will the Patient Participate in the Screening?: Unable to obtain Do you worry about having a steady place to live?: no Problems where you live: no known problems In the past 12 months, have you had to go without electric, gas, oil or water in your home?: no Have you or anyone in your house had to go without enough food to eat?: no Has lack of transportation kept you from medical appointments or from doing things needed for daily living?: no Has anyone in your life made you feel unsafe or unsupported?: no How hard is it for you to pay for the very basics like food, housing, medical care, and heating? Would you say it is:: Not hard at all Do you want help finding or keeping work or a job?: I do not need or want help If for any reason you need help with day-to-day activities such as bathing, preparing meals, shopping, managing finances, etc., do you get the help you need?: I don?t need any help How often do you feel lonely or isolated from those around you?: Never Do you speak a language other than Indonesian at home?: No Does the patient want assistance with any of the above?: No PFSH All Active Problems (Updated 05/18/24 @ 00:08 by YUE ENGEL) Non-insulin dependent type 2 diabetes mellitus (Acute) CAD (coronary artery disease) (Chronic) Acute exacerbation of CHF (congestive heart failure) (Acute) MILIAN (dyspnea on exertion) (Acute) Hypertrophic toenail (Acute) Hyperbilirubinemia (Acute) Squamous cell skin cancer (Acute) Atypical pigmented skin lesion (Acute) Pigmented skin lesion (Acute) Gout (Chronic) KIDNEY TRANSPLANT (Acute 09/16/15) [facility] Acute diverticulitis (Acute) Physical deconditioning (Acute) Gait difficulty (Acute) Meibomian gland dysfunction (MGD) of upper and lower eyelid of left eye (Acute ~08/2022) Meibomian gland dysfunction (MGD) of upper and lower eyelid of right eye (Acute ~08/2022) Drusen (degenerative) of macula, bilateral (Acute) [place] note 08/15/22 Age-related nuclear cataract, bilateral (Acute) [place] note 08/15/22 Dry mouth (Acute) Periodic limb movement disorder (Acute) Central sleep apnea (Acute) [facility] current use of immunosuppressive drug (Acute) Diverticulitis of intestine with perforation (Acute) Pacemaker (Acute) dual lead [employer] [place] 01/31/2022 RIGHT SIDED Presence of Watchman left atrial appendage closure device (Acute) [facility] 05/27 Long-term current use of immunosuppressive biologic agent (Chronic) Vitamin D deficiency (Acute ~05/2022) Osteoarthritis of left knee (Acute) Parkinsonism (Acute) Tremor (Acute) Acute diverticulitis (Acute) - confirmed by CT , inpt at [facility] Bradycardia (Chronic) Vasogenic edema (Acute) Hypertension (Chronic) Hiccups (Acute) 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, tx at [facility], anticoagulant stopped Altered mental status (Acute) Hypertensive retinopathy (Acute ~09/27/20) [place] 09/27/20- MILD TO MODERATE-KB Spinal stenosis (Acute) L5-S1 Subsequent non-ST elevation (NSTEMI) myocardial infarction within 4 weeks of initial infarction (Acute) stents Status post rotator cuff repair (Acute) Postoperative stiffness of total knee replacement (Chronic) Olecranon bursitis, left elbow (Chronic) Arthritis of left elbow (Acute) Tubular adenoma (Acute 09/12/15) 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 Microscopic hematuria (Acute 05/21/12) neg workup [facility] [place]. Kidney transplant recipient (Chronic 09/16/15) [facility]; without recipient nephrectomy ureteral stenosis with multiple surgeries Inguinal hernia, unilateral (Acute) left Hypothyroidism (Acute 04/06/15) Hypertension (Acute) GERD (gastroesophageal reflux disease) (Acute) Elevated BUN (Acute) Diverticula of colon (Acute 09/12/15) Colon polyp (Acute 06/04/03) Repeat colonoscopy-no polyps; diverticulosis Cardiomyopathy due to hypertension (Acute 11/29/14) EF 40% 09/17 CKD (chronic kidney disease) stage 3, GFR 30-59 ml/min (Acute 04/25/14) 10/18 Stage 4.. Need dialysis or transplant. 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 s/p hernia repair b. s/p knee arthroscopy c. s/p unspecified shoulder surgery d. s/p vasectomy Medical History History of diverticulitis (09/14/22) Fistula Obstructive sleep apnea Myocardial infarction Hepatitis C Treated and cured Chronic kidney disease Hypothyroidism CVA (cerebral vascular accident) CHF (congestive heart failure) Diabetes HTN (hypertension) Hyperlipemia GERD (gastroesophageal reflux disease) BPH (benign prostatic hyperplasia) Atrial fibrillation Surgical History History of arthroscopy of knee History of biopsy H/O bladder repair surgery History of hernia repair H/O vasectomy Rotator Cuff Repair left Colonoscopy - [facility] 2009 BIOPSY, KIDNEY (10/16/14) [facility] Arthroplasty of knee 2006-right Family History Mother Essential hypertension Father Myocardial infarction Stroke Brother Essential hypertension Neoplasm Social History Smoking/Tobacco Use Status: Current-Occasional Tobacco Type: cigars Tobacco: How many years used: 20 Quit status: not considering quitting Smoking risk assessment performed?: Yes Alcohol Intake: never Drug use: Occasionally Substance use type: marijuana Adopted: No Caregiver/Support person: Yes Foster care: No Household members: spouse Housing: house Number of Children: 2 number of grandchildren: 1 Communication Needs: None Education Level: high school 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 Pets and animals: Yes Pets and animals: dog(s) Sexually active: No Do you think of yourself as: straight/heterosexual Current gender identity: male What is your relationship status?: How often do you talk on the phone with friends or family?: three or more times per week Do you belong to any clubs or organized social groups?: no Panel score (0-1 are the most socially isolated patients): 2 Idalia/Taoism: None Special idalia needs: No Seatbelt use: always Helmet use: Yes Helmet use: always Drive intox or ride w/intox service parts driver: No Do you feel safe at home: Yes Do you feel safe in your relationship?: Yes
[2024-09-13] MEDS: Enoxaparin 40 MG/0.4 ML SYR SC (10:16)
[2024-09-13] MEDS: Magnesium Gluconate 500 MG TAB PO (10:17)
[2024-09-13] MEDS: Potassium Chloride 20 MEQ TABCR PO ×2 (10:18→12:17)
[2024-09-13] MEDS: Tamsulosin 0.4 MG CAPCR PO (10:19)
[2024-09-13] MEDS: Tacrolimus 0.5 MG CAP 1 MG PO ×2 (10:19→20:30)
[2024-09-13] MEDS: Mycophenolate Mofetil 250 MG CAP PO ×2 (10:20→20:30)
[2024-09-13] MEDS: metFORMIN 500 MG TAB PO ×2 (10:20→17:00)
[2024-09-13] MEDS: Metoprolol CR 50 MG TABCR 75 MG PO ×2 (10:20→20:30)
[2024-09-13] MEDS: Magnesium Gluconate 500 MG TAB 1000 MG PO ×2 (10:21→20:30)
[2024-09-13] MEDS: Furosemide 40 MG/4 ML VIAL IVP ×2 (10:21→17:04)
[2024-09-13] MEDS: Normal Saline Flush 10 ML SYR IVP ×2 (10:21→20:31)
[2024-09-13] MEDS: Aspirin E.C. 81 MG TABEC PO (10:21)
[2024-09-13] MEDS: hydrALAZINE 25 MG TAB 100 MG PO ×2 (10:21→20:30)
[2024-09-13] MEDS: amLODIPine 5 MG TAB PO (10:21)
[2024-09-13 11:17] VITALS: BP 137/63; PULSE 51; RESP 18; TEMP 37.1; O2SAT 95
--- NOTE | 2024-09-13 12:14 | PGE_ITS ---
Date of Service Date of service: 09/13/24 Time of Service: 12:14 Assessment and Plan Assessment and plan (1) Acute exacerbation of CHF (congestive heart failure): Status: Acute Assessment and plan: - Last echo May 2024, showed EF 43% -Patient presented with worsening shortness of breath despite taking his 40 mg Lasix p.o. daily -Had 200 mL urine output status post 80 mg IV Lasix in the emergency department -was initially on 80 mg Lasix IV twice daily which is has been decreased to 40mg IV BID on AM 09/13, will continue IV as patient continues to be significantly ort hopneic -Strict I's and O's (2) Atrial fibrillation: Status: Chronic Assessment and plan: -Status post watchman (due to intracranial bleed) (3) CAD (coronary artery disease): Status: Chronic Assessment and plan: - Status post PCI to OM -Continue home metoprolol XL 50 daily, sublingual nitro as needed, daily aspirin, and atorvastatin 40 mg daily (4) Non-insulin dependent type 2 diabetes mellitus: Status: Acute Assessment and plan: - Continue home metformin -Hold home glipizide while hospitalized (5) Pacemaker: Status: Acute Assessment and plan: - Due to tachybradycardia syndrome, placed in the summer 2021 (6) Hypertension: Status: Chronic Assessment and plan: - Continue home amlodipine (7) Long-term current use of immunosuppressive biologic agent: Status: Chronic Assessment and plan: - Status post kidney transplant -Continue home CellCept and tacro Subjective Subjective Interval history since last seen: Patient states that he is overall feeling better today, though he did become significantly short of breath when laying flat. He understands that he is improving and has no other complaints or concerns at this time. Exam Narrative Exam Narrative: Well-appearing older gentleman sitting up in the edge of the bed no acute distress, ANO x 4, heart regular rhythm, lungs with mild crackles in bilateral bases, abdomen soft, nontender, nondistended, +3 pitting edema bilateral lower extremities to the mid waterman Objective Last Vital Signs Temp 98.7 F 09/13/24 11:17 Pulse 51 L 09/13/24 11:17 Resp 18 09/13/24 11:17 BP 137/63 09/13/24 11:17 Pulse Ox 95 09/13/24 11:17 Laboratory Results - last 24 hr 09/12/24 09/12/24 09/12/24 12:29 12:29 13:13 WBC 7.31 RBC 4.36 Hgb 12.7 L Hct 39.3 L MCV 90 MCH 29.1 MCHC 32.3 RDW 14.3 H Plt Count 227 MPV 9.6 Immature Gran % 0.4 Neutrophils % 70.5 Lymphocytes % 14.2 Monocytes % 7.9 Eosinophils % 6.0 Basophils % 1.0 Nucleated RBC % 0.0 Absolute Neutrophils 5.15 Absolute Lymphocytes 1.04 L Absolute Monocytes 0.58 Absolute Eosinophils 0.44 Absolute Basophils 0.07 Sodium 146 H Potassium 3.3 L Chloride 106 Carbon Dioxide 32.3 H Anion Gap 7.7 BUN 22 H Creatinine 1.5 H Est GFR (CKD-EPI 2020) 47.95 Glucose 149 H Calcium 9.4 Magnesium Total Bilirubin 3.9 H AST 18 ALT 22 Alkaline Phosphatase 77 Troponin I 53 Cancelled 53 NT-Pro-B Natriuret Pep 5544 H Total Protein 7.2 Albumin 3.4 09/12/24 09/13/24 15:00 06:12 WBC 7.46 RBC 4.16 L Hgb 12.1 L Hct 37.0 L MCV 89 MCH 29.1 MCHC 32.7 RDW 14.2 H Plt Count 216 MPV 9.6 Immature Gran % Neutrophils % Lymphocytes % Monocytes % Eosinophils % Basophils % Nucleated RBC % Absolute Neutrophils Absolute Lymphocytes Absolute Monocytes Absolute Eosinophils Absolute Basophils Sodium 145 Potassium 2.9 L* Chloride 107 Carbon Dioxide 32.1 H Anion Gap 5.9 BUN 23 H Creatinine 1.5 H Est GFR (CKD-EPI 2020) 47.95 Glucose 108 H Calcium 8.9 Magnesium 1.2 Total Bilirubin AST ALT Alkaline Phosphatase Troponin I 48 NT-Pro-B Natriuret Pep Total Protein Albumin Time Spent with Patient Time Spent with Patient: >50 minutes Time was spent: preparing to see the patient(eg.review tests), obtaining and/or reviewing separately otained hiistory, ordering medications,tests, procedures, referring, communicating with other health health care technician, indepentently interpreting results, counseling the patient and care coordination
[2024-09-13 17:34] VITALS: PULSE 51; TEMP 37.1
[2024-09-13 20:18] VITALS: BP 145/69; PULSE 54; RESP 18; TEMP 37.5; O2SAT 94
[2024-09-13] MEDS: Atorvastatin 40 MG TAB PO (20:30)
[2024-09-13 23:16] VITALS: BP 139/64; PULSE 60; RESP 18; TEMP 37; O2SAT 95
[2024-09-14 06:56] LABS: Anion Gap 8.6 mmol/L (3-11); BUN 22 mg/dL (7-18); CO2 29.4 mmol/L (21.0-32.0); CREATININE 1.5 mg/dL (0.70-1.30); Calcium 8.7 mg/dL (8.5-10.1); Chloride 107 mmol/L (98-107); Estimated GFR 47.95 (mL/min/1.73m2); Glucose 118 mg/dL (74-106); Sodium 145 mmol/L (136-145)
[2024-09-14 07:30] VITALS: BP 145/77; PULSE 62; RESP 16; TEMP 36.9; O2SAT 94
[2024-09-14] MEDS: Normal Saline Flush 10 ML SYR IVP (08:26)
[2024-09-14] MEDS: Furosemide 40 MG/4 ML VIAL IVP (08:47)
[2024-09-14] MEDS: Enoxaparin 40 MG/0.4 ML SYR SC (08:47)
[2024-09-14] MEDS: hydrALAZINE 25 MG TAB 100 MG PO (08:48)
[2024-09-14] MEDS: Tacrolimus 0.5 MG CAP 1 MG PO (08:48)
[2024-09-14] MEDS: Metoprolol CR 50 MG TABCR 75 MG PO (08:49)
[2024-09-14] MEDS: Aspirin E.C. 81 MG TABEC PO (08:49)
[2024-09-14] MEDS: Potassium Chloride 20 MEQ TABCR PO (08:50)
[2024-09-14] MEDS: Tamsulosin 0.4 MG CAPCR PO (08:51)
[2024-09-14] MEDS: metFORMIN 500 MG TAB PO (08:51)
[2024-09-14] MEDS: amLODIPine 5 MG TAB PO (08:51)
[2024-09-14] MEDS: Mycophenolate Mofetil 250 MG CAP PO (08:51)
[2024-09-14] MEDS: Magnesium Gluconate 500 MG TAB 1000 MG PO (08:52)
[2024-09-14 11:44] VITALS: BP 131/66; PULSE 54; RESP 16; TEMP 36.4; O2SAT 97
--- NOTE | 2024-09-14 12:36 | DSE_ITS ---
Date of service: 09/14/24 Time of Service: 12:36 DS: Diagnosis Discharge Diagnosis (1) Acute exacerbation of CHF (congestive heart failure): Status: Acute (2) Atrial fibrillation: Status: Chronic (3) CAD (coronary artery disease): Status: Chronic (4) Non-insulin dependent type 2 diabetes mellitus: Status: Acute (5) Pacemaker: Status: Acute (6) Hypertension: Status: Chronic (7) Long-term current use of immunosuppressive biologic agent: Status: Chronic (8) Elevated bilirubin: Status: Acute Asessment and Plan: -Patient was noted as having an elevated bilirubin on admission of 3.9 without elevation of AST or ALT or alk phos or abdominal pain -However, upon reviewing patient's history he has had history of chronically elevated bilirubin in the low to mid 30s -This may be secondary to his antirejection medications -May have been acutely exacerbated during this hospitalization due to hepatic co ngestion in the setting of heart failure -Recommend rechecking bilirubin at next PCP visit and discussing with his transplant team if it remains high regarding antirejection meds potential causes Discharge Plan Disposition Patient Disposition: Home Condition: Good Discharge Details Reason For Visit: Acute exacerbation of HFrEF Admit Date/Time: 09/12/24 14:20 Admit Provider: Kameron Morales Attending Provider: Kameron Morales Primary Care Provider: Urbano Jimenez Hospital Course Hospital Course: Patient presented with exertional shortness of breath and orthopnea found to be secondary to exacerbation of CHF. He was on IV lasix and experienced significant urine output which led to resolution of his symptoms. He was able to sleep laying flat as well as ambulate around the med/surg unit without difficulty. It was explained to the patient that should he experience worsening lower extremity edema, a 1-day weight increase of 3lbs or an increase of ~5lb over a 2-3 day period he should double his daily lasix dose until he returns to his baseline weight, otherwise he should reach out to his PCP. Given resolution of his symptoms it was determined that he was stable for discharge home. Home Meds and New Rx's Prescriptions: Continued omeprazole 20 mg capsule,delayed release(DR/EC) 20 mg PO DAILY PRN (Reason: GERD) Qty: 90 3RF metformin 500 mg tablet 500 mg PO BID Qty: 180 3RF hydralazine 100 mg tablet 100 mg PO BID Qty: 180 3RF nitroglycerin 0.4 mg tablet, sublingual 0.4 mg SL Q5M PRN (Reason: chest pain) Qty: 30 0RF magnesium gluconate 27 mg magnesium (500 mg) tablet 27 mg PO TID Rx Instructions: QAM 1,000 mg Noon 500 mg QPM 1,000 mg mycophenolate mofetil [CellCept] 250 MG capsule 250 mg PO BID ascorbic acid (vitamin C) [Vitamin C] 500 MG capsule, extended release 500 mg PO TID Centrum Silver 0.4-300-250 mg-mcg-mcg tablet 2 tab PO DAILY aspirin [Adult Low Dose Aspirin] 81 mg tablet,delayed release (DR/EC) 81 mg PO DAILY acetaminophen 500 mg capsule 500 mg PO Q8H PRN PRN (Reason: pain) tacrolimus [Prograf] 1 mg capsule 1 mg PO BID glipizide 10 mg tablet extended release 24hr 10 mg PO BID Qty: 180 3RF saxagliptin 5 mg tablet 5 mg PO DAILY Qty: 90 3RF amlodipine 5 mg tablet 5 mg PO DAILY Qty: 90 3RF metoprolol succinate 50 mg tablet extended release 24 hr 75 mg PO BID Qty: 180 3RF tamsulosin 0.4 mg capsule 0.4 mg PO DAILY Qty: 90 3RF atorvastatin 40 mg tablet 40 mg PO QHS Qty: 90 3RF levothyroxine 137 mcg tablet 137 mcg PO DAILY Qty: 90 3RF furosemide 40 mg tablet 40 mg PO DAILY Qty: 90 0RF calcitriol 0.5 mcg capsule 0.5 mcg PO DAILY Patient Comments: TAKE ONE CAPSULE BY MOUTH EVERY DAY potassium chloride 20 mEq tablet,ER particles/crystals 20 meq PO DAILY Patient Comments: TAKE ONE TABLET BY MOUTH EVERY DAY No Action (DME) blood sugar diagnostic Strip See Rx Instructions .ROUTE .MEDSUPPLY Qty: 180 4RF Rx Instructions: test BID (DME) lancets 28 gauge misc 1 ea Miscellaneous DAILY Qty: 100 6RF Rx Instructions: FOR ONE TOUCH ULTRA MINI METER. NO INSULIN. DIAGNOSIS CODE E11.3 Test BID (DME) blood-glucose meter Misc 1 ea Miscellaneous DAILY Qty: 1 0RF Rx Instructions: FOR ONE TOUCH ULTRA MINI; Dx E11.9, to keep HbA1c less than 6.5% Discharge Instructions Stand Alone Forms: Nursing Discharge Form Referrals: Urbano Denis DO [ [facility] STAFF PHYSICIAN] - 09/26/24 2:00 pm Activity:: Activity as Tolerated Equipment/Supplies:: No Equipment Needed Diet:: As Tolerated Discharge Orders Discharge Orders: Discharge Order (Routine); Ordered 09/14/24 Ordered By: Kameron Morales Discharge Data Discharge Date/Time-TO BE ENTERED AT DEPARTURE: 09/14/24 15:10 DS: Summary Time Spent with Patient providing and/or coordinating discharge services: Greater than 30 minutes Status at Discharge Functional status at discharge: independent ambulation Overall status at discharge: patient is back to baseline Mental Status: mental status grossly normal Speech and Movement: speech and movement normal Mood: congruent mood Affect: normal affect Quality:SDOH Health Related Social Needs: No Data to Display Exam Narrative Exam Narrative: Well-appearing older gentleman sitting up in the edge of the bed no acute distress, ANO x 4, heart regular rhythm, lungs CTAB, abdomen soft, nontender, nondistended, complete resolution of bilateral LE edema Psych Mental Status: mental status grossly normal Speech and Movement: speech and movement normal Mood: congruent mood Affect: normal affect DS: Data Vitals/I&O Vitals and I&O: Vital Signs Temperature 97.5 F L 09/14/24 11:44 Temperature Source Temporal Artery Scan 09/14/24 11:44 Pulse 54 L 09/14/24 11:44 Pulse Rhythm Regular 09/12/24 15:32 Pulse 51 L 09/12/24 14:50 Respiratory Rate 16 09/14/24 11:44 Respiratory Effort Normal 09/12/24 15:32 Respiratory Depth Normal 09/12/24 15:32 Respiratory Pattern Normal 09/12/24 15:32 Blood Pressure 131/66 09/14/24 11:44 Blood Pressure Mean 86 09/12/24 14:46 Blood Pressure Position Sitting 09/12/24 13:04 Pulse Oximetry 97 09/14/24 11:44 Oxygen Delivery Method Room Air 09/14/24 11:44 Oxygen Flow Rate 0 09/14/24 11:44 Pain Level 0 09/13/24 23:16 Comment pt states he feels short of breathe. 09/13/24 11:17 Intake & Output 09/13/24 09/14/24 09/14/24 17:59 05:59 17:59 Intake Total 300 / 300 Output Total 1300 / 1300 600 / 600 Balance 300 / 300 -1300 / -1000 -600 / -600 Weight 219 lb 1 oz Intake: Oral 300 / 300 Output: Urine 1300 / 1300 600 / 600 Other: Urine Color Yellow Light Muna Yellow Urine Appearance Clear Clear Clear Urine Odor Normal Normal Normal Stool Size Large Stool Characteristics Formed Data Completed and Pending Labs on day of discharge: Labs from last 24 hours 09/14/24 06:23 Sodium 145 Potassium 3.0 L Chloride 107 Carbon Dioxide 29.4 Anion Gap 8.6 BUN 22 H Creatinine 1.5 H Est GFR (CKD-EPI 2020) 47.95 Glucose 118 H Calcium 8.7 PFSH All Active Problems (Updated 05/18/24 @ 00:08 by YUE ENGEL) Elevated bilirubin (Acute) Non-insulin dependent type 2 diabetes mellitus (Acute) CAD (coronary artery disease) (Chronic) Acute exacerbation of CHF (congestive heart failure) (Acute) MILIAN (dyspnea on exertion) (Acute) Hypertrophic toenail (Acute) Hyperbilirubinemia (Acute) Squamous cell skin cancer (Acute) Atypical pigmented skin lesion (Acute) Pigmented skin lesion (Acute) Gout (Chronic) KIDNEY TRANSPLANT (Acute 09/16/15) [facility] [place] Acute diverticulitis (Acute) Physical deconditioning (Acute) Gait difficulty (Acute) Meibomian gland dysfunction (MGD) of upper and lower eyelid of left eye (Acute ~08/2022) Meibomian gland dysfunction (MGD) of upper and lower eyelid of right eye (Acute ~08/2022) [place] (degenerative) of macula, bilateral (Acute) [place] note 08/15/22 Age-related nuclear cataract, bilateral (Acute) [place] note 08/15/22 Dry mouth (Acute) Periodic limb movement disorder (Acute) Central sleep apnea (Acute) 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 (Acute) Diverticulitis of intestine with perforation (Acute) Pacemaker (Acute) dual lead [employer] [place] 01/31/2022 RIGHT SIDED Presence of Watchman left atrial appendage closure device (Acute) [facility] [place] Long-term current use of immunosuppressive biologic agent (Chronic) Vitamin D deficiency (Acute ~05/2022) Osteoarthritis of left knee (Acute) Parkinsonism (Acute) Tremor (Acute) Acute diverticulitis (Acute) - confirmed by CT , inpt at [facility] Bradycardia (Chronic) Vasogenic edema (Acute) Hypertension (Chronic) Hiccups (Acute) 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, tx at [facility] [place], anticoagulant stopped Altered mental status (Acute) Hypertensive retinopathy (Acute ~09/27/20) [place] 09/27/20- MILD TO MODERATE-KB Spinal stenosis (Acute) L5-S1 Subsequent non-ST elevation (NSTEMI) myocardial infarction within 4 weeks of initial infarction (Acute) stents Status post rotator cuff repair (Acute) Postoperative stiffness of total knee replacement (Chronic) Olecranon bursitis, left elbow (Chronic) Arthritis of left elbow (Acute) Tubular adenoma (Acute 09/12/15) 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 Microscopic hematuria (Acute 05/21/12) [place] [facility] [place] (Chronic 09/16/15) [facility] [place]; without recipient nephrectomy ureteral stenosis with multiple surgeries Inguinal hernia, unilateral (Acute) left Hypothyroidism (Acute 04/06/15) Hypertension (Acute) GERD (gastroesophageal reflux disease) (Acute) Elevated BUN (Acute) Diverticula of colon (Acute 09/12/15) Colon polyp (Acute 06/04/03) Repeat colonoscopy-no polyps; diverticulosis Cardiomyopathy due to hypertension (Acute 11/29/14) EF 40% 09/17 CKD (chronic kidney disease) stage 3, GFR 30-59 ml/min (Acute 04/25/14) 10/18 Stage 4.. Need dialysis or transplant. 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 s/p hernia repair b. s/p knee arthroscopy c. s/p unspecified shoulder surgery d. s/p vasectomy Medical History History of diverticulitis (09/14/22) Fistula Obstructive sleep apnea Myocardial infarction Hepatitis C Treated and cured Chronic kidney disease Hypothyroidism CVA (cerebral vascular accident) CHF (congestive heart failure) Diabetes HTN (hypertension) Hyperlipemia GERD (gastroesophageal reflux disease) BPH (benign prostatic hyperplasia) Atrial fibrillation Surgical History History of arthroscopy of knee History of biopsy H/O bladder repair surgery History of hernia repair H/O vasectomy Rotator Cuff Repair left Colonoscopy - MAC 2009 BIOPSY, KIDNEY (10/16/14) [facility] [place] Arthroplasty of knee 2006-right Family History Mother Essential hypertension Father Myocardial infarction Stroke Brother Essential hypertension Neoplasm Social History Smoking/Tobacco Use Status: Current-Occasional Tobacco Type: cigars Tobacco: How many years used: 20 Quit status: not considering quitting Smoking risk assessment performed?: Yes Alcohol Intake: never Drug use: Occasionally Substance use type: marijuana Adopted: No Caregiver/Support person: Yes Foster care: No Household members: spouse Housing: house Number of Children: 2 number of grandchildren: 1 Communication Needs: None Education Level: high school 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 Pets and animals: Yes Pets and animals: dog(s) Sexually active: No Do you think of yourself as: straight/heterosexual Current gender identity: male What is your relationship status?: How often do you talk on the phone with friends or family?: three or more times per week Do you belong to any clubs or organized social groups?: no Panel score (0-1 are the most socially isolated patients): 2 Idalia/Methodist: None Special idalia needs: No Seatbelt use: always Helmet use: Yes Helmet use: always Drive intox or ride w/intox warehouse delivery driver: No Do you feel safe at home: Yes Do you feel safe in your relationship?: Yes Time Spent with Patient Time Spent with Patient: <45 minutes Time was spent: preparing to see the patient(eg.review tests), obtaining and/or reviewing separately otained hiistory, ordering medications,tests, procedures, referring, communicating with other health healthcare financial analyst, indepentently interpreting results, counseling the patient and care coordination
--- NOTE | 2024-09-14 14:09 | CMDISCH_ITS ---
Date of service: 09/14/24 Time of Service: 14:09 LACE Index Scoring Tool Questions: Length of Stay (in days): 2 Was the patient admitted via the E.D.?: Yes Comorbidities: Previous M.I., Cerebrovascular Disease, Diabetes w/o Com plication, Congestive Heart Failure and Liver or Renal Disease E.D. Visits: 2 Answers: Total Score: 12 Risk of Readmission: High Risk Care Management Discharge Plan Reason for Hospitalization: CHF Discharge Plan: Yash will be discharged home with no new services. He will follow up with his PCP and plan of care and transport with his . CM reviewed information about CHF with Mara over the phone and with Yash in person, to reinforce the importance of daily weights and dietary restrictions. Both verbalized understanding. Patient/Family Education Needs: Review of discharge instructions, limitations, diet, importance of daily weights, follow up plan and discuss Ask Me [facility] Health Related Social Needs: No Data to Display
[2024-09-14] MEDS: Magnesium Gluconate 500 MG TAB PO (14:26)
== END 2024-09-14 15:10 | disposition home or self-care (01) | DRG 291 ==
LOC: ER 14:49 → MS 15:12
PROVIDERS: Physician Assistant; Admitting Provider Family Medicine; Emergency Provider Emergency Medicine; PCP Family Medicine; Responsible Provider Family Medicine; Visit Provider Family Medicine
DX: I13.0 Hypertensive heart and chronic kidney disease with heart failure and stage 1 through stage 4 chronic kidney disease, or unspecified chronic kidney disease (principal); I50.23 Acute on chronic systolic (congestive) heart failure; N18.4 Chronic kidney disease, stage 4 (severe); Z94.0 Kidney transplant status; F17.290 Nicotine dependence, other tobacco product, uncomplicated; I25.10 Atherosclerotic heart disease of native coronary artery without angina pectoris; I48.91 Unspecified atrial fibrillation; E11.22 Type 2 diabetes mellitus with diabetic chronic kidney disease; Z95.0 Presence of cardiac pacemaker; Z79.620 Long term (current) use of 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 biologic; Z95.818 Presence of other cardiac implants and grafts; M1A.00X0 Idiopathic chronic gout, unspecified site, without tophus (tophi); R26.9 Unspecified abnormalities of gait and mobility; G47.61 Periodic limb movement disorder; G47.31 Primary central sleep apnea; E55.9 Vitamin D deficiency, unspecified; G20.C Parkinsonism, unspecified; I25.2 Old myocardial infarction; E11.42 Type 2 diabetes mellitus with diabetic polyneuropathy; Z86.73 Personal history of transient ischemic attack (TIA), and cerebral infarction without residual deficits; Z96.651 Presence of right artificial knee joint; H90.3 Sensorineural hearing loss, bilateral; E03.9 Hypothyroidism, unspecified; K21.9 Gastro-esophageal reflux disease without esophagitis; I43 Cardiomyopathy in diseases classified elsewhere; G47.33 Obstructive sleep apnea (adult) (pediatric); N40.0 Benign prostatic hyperplasia without lower urinary tract symptoms; E80.6 Other disorders of bilirubin metabolism
CPT/HCPCS: 00123; 36415; 80048; 80053; 85027; 93005; 96374; 99285; J1650; 71046; 83735; 83880; 84484; 85025; 93010; 99223; 99233; 99239; J1940; J3490; J7517

== ENCOUNTER 2024-09-26 14:46 | Outpatient (CLI) | payer MEDICARE, SELFPAY ==
[2024-09-26 15:38] LABS: ALT 22 U/L (16-63); AST 21 U/L (15-37); Albumin 3.8 g/dL (3.4-5.0); Alkaline Phosphatase 79 U/L (46-116); BUN 25 mg/dL (7-18); Bilirubin, Direct 0.3 mg/dL (0.0-0.2); Bilirubin, Total 3.7 mg/dL (0.2-1.0); CREATININE 1.5 mg/dL (0.70-1.30); Calcium 10.3 mg/dL (8.5-10.1); Chloride 103 mmol/L (98-107); Estimated GFR 47.95 (mL/min/1.73m2); Glucose 130 mg/dL (74-106); Potassium 3.6 mmol/L (3.5-5.1); Sodium 143 mmol/L (136-145); Total Protein 8.1 g/dL (6.4-8.2)
[2024-09-26 15:42] LABS: NT-proBNP 3809 pg/mL (<300)
[2024-09-26 16:19] LABS: Magnesium 1.5 mg/dL
== END 2024-09-26 14:47 | disposition home or self-care (01) ==
LOC: LBO 14:48
PROVIDERS: Family Medicine; PCP Family Medicine; Visit Provider Emergency Medicine
DX: I50.9 Heart failure, unspecified (principal); R17 Unspecified jaundice
CPT/HCPCS: 36415; 80053; 80076; 83735; 83880

== ENCOUNTER 2024-10-06 12:42 | Outpatient (CLI) | payer MEDICARE, SELFPAY ==
[2024-10-06 14:14] LABS: HCT 40.1 % (40.0-50.0); HGB 12.8 g/dL (13.5-17.5); MCH 29.2 pg (27.0-33.0); MCHC 31.9 % (32.0-36.0); MCV 92 fL (80-95); MPV 9.7 fL (8.0-11.0); Platelet Count 208 10^3/uL (130-400); RBC 4.38 10^6/uL (4.36-5.78); RDW 13.7 % (11.8-14.1); RDW-SD 45.8 fL; WBC 6.55 10^3/uL (4.4-10.8)
[2024-10-06 14:22] LABS: Bilirubin Negative (Negative); Blood Negative (Negative); Clarity Clear (Clear); Glucose Negative (Negative); Ketones Negative (Negative); Leukocyte Esterase Negative (Negative); Nitrite Negative (Negative); Specific Gravity 1.015 (1.005-1.025); Urobilinogen 0.2 mg/dL (Up to 0.2)
[2024-10-06 14:28] LABS: Hemoglobin A1C 6.4 % (<5.7)
[2024-10-06 14:34] LABS: ALT 27 U/L (16-63); AST 20 U/L (15-37); Albumin 3.5 g/dL (3.4-5.0); Alkaline Phosphatase 84 U/L (46-116); Anion Gap 12.1 mmol/L (3-11); BUN 21 mg/dL (7-18); Bilirubin, Total 2.9 mg/dL (0.2-1.0); CO2 29.9 mmol/L (21.0-32.0); CREATININE 1.5 mg/dL (0.70-1.30); Calcium 9.5 mg/dL (8.5-10.1); Chloride 104 mmol/L (98-107); Estimated GFR 47.95 (mL/min/1.73m2); Glucose 177 mg/dL (74-106); Potassium 3.4 mmol/L (3.5-5.1); Sodium 146 mmol/L (136-145); Total Protein 7.4 g/dL (6.4-8.2)
[2024-10-06 14:37] LABS: Calculated LDL 16 mg/dL (<100); Cholesterol 80 mg/dL (<200); HDL Cholesterol 41 mg/dL (>or=40); Magnesium 1.3 mg/dL; Triglyceride 118 mg/dL (<150)
[2024-10-06 14:56] LABS: Vitamin D 25 Total 40 ng/mL (30-100)
[2024-10-06 15:03] LABS: Creatinine,Urine 35.76 mg/dL
[2024-10-06 15:07] LABS: COMMENT (LAB VIEW ONLY) 37.16 mg/dL; PROTEIN 7.7 mg/dL
[2024-10-06 15:14] LABS: PHOSPHORUS 2.7 mg/dL (2.6-4.7); Uric Acid 8.2 mg/dL (3.5-7.2)
[2024-10-06 19:25] LABS: Reticulocyte 1.5 % (0.5-2.4)
[2024-10-06 22:40] LABS: Parathyroid Hormone,Intact 60.1 pg/mL (19.0-88.0)
[2024-10-07 09:30] LABS: Magnesium Random Urine 6.5 mg/dL (See Note)
[2024-10-07 09:32] LABS: Phosphorus Urine 16.2 mg/dL (See Note)
[2024-10-07 09:45] LABS: Calcium (Random Urine) 15.3 mg/dL (See Note)
[2024-10-07 13:38] LABS: Tacrolimus 11.1 ng/mL (See Note)
[2024-10-08 14:26] LABS: BKV DNA Detect/Quant, P Undetected IU/mL (Undetected)
[2024-10-11 16:47] LABS: 1,25-Dihydroxyvitamin D 34 pg/mL (18-64)
== END 2024-10-06 12:43 | disposition home or self-care (01) ==
LOC: LBO 12:44
PROVIDERS: Emergency Medicine; PCP Family Medicine; Visit Provider Internal Medicine Nephrology
DX: R17 Unspecified jaundice (principal); T86.19 Other complication of kidney transplant; Z79.899 Other long term (current) drug therapy; Z84.0 Family history of diseases of the skin and subcutaneous tissue
CPT/HCPCS: 36415; 80053; 80061; 82306; 83735; 85027; 80197; 81003; 82340; 82565; 82652; 83036; 83970; 84100; 84105; 84156; 84550; 85045; 87799

== ENCOUNTER 2024-10-13 01:16 | Outpatient (CLI) | payer MEDICARE, SELFPAY ==
--- NOTE | 2024-10-13 07:30 | DI.US_ITS ---
APPROVED REPORT EXAM: Comprehensive 2D, Doppler, and color-flow Echocardiogram Patient Location: Out-Patient Mechanic Chief: Rubén Jacobs RDCS (AE) Indications: CHF Conclusion Borderline dilated left ventricle, borderline left ventricular hypertrophy. Ejection fraction is 45% with global hypokinesis Normal right ventricular size and function Both atria are severely enlarged Device lead noted in the right heart Aortic valve is sclerotic and trileaflet. Mean gradient is 8 mmHg. There is trace to mild aortic re gurgitation Normal mitral valve with mild to moderate eccentric mitral regurgitation Mild tricuspid regurgitation. Estimated right ventricular systolic pressure is 30 mmHg Ascending aorta measures 3.61 cm Wall motion Left Ventricle Left ventricle is borderline dilated. Left ventricular systolic function is mildly decreased. Borderl ine concentric left ventricular hypertrophy. There is global hypokinesis of the left ventricle. There is no ventricular septal defect visualized. LVEF is 45%. Right Ventricle The right ventricle is normal size. The right ventricular systolic function is normal. Device lead is present in the right ventricle. Atria Left atrium is severely dilated. Right atrium is severely dilated. The interatrial septum is intact w ith no evidence for an atrial septal defect. Aortic Valve The aortic valve is sclerotic. Aortic valve is trileaflet. There is no aortic valvular stenosis. Trac e to mild aortic regurgitation. Mitral Valve The mitral valve is normal in structure. No evidence of mitral valve stenosis. Mild to moderate eccen tric mitral regurgitation. Tricuspid Valve The tricuspid valve is normal in structure. There is no tricuspid valve stenosis. Mild tricuspid regu rgitation. Pulmonic Valve The pulmonary valve is normal in structure. There is no pulmonic valvular stenosis. There is no pulmo spencer valvular regurgitation. Great Vessels The aortic root is normal in size. The ascending aorta is mildly dilated. Aortic arch is not well vis ualized. IVC is normal in size and collapses >50% with inspiration. Pericardium Trace pericardial effusion. 2D Dimensions IVSD d PLAX 1.25 cm M: 0.6-1.2 Ao Root d 3.39 cm M: 3.1 - 3.7 LVPW d PLAX 1.29 cm M: 0.6 - 1.2 Ao Asc Diam d 3.61 cm M: 2.6 - 3.4 LVID d PLAX 5.83 cm M: 4.2 - 5.8 LVDs 4.49 cm M: 2.5 - 4.0 LV EF Teichholz 45.4 % FS 22.98 % LV EDV (Teich) 168.4 mL LV ESV (Teich) 91.9 mL Stroke Vol Index (Teich) 39.64 M-Mode TAPSE 1.67 cm (M/F) >1.7 Auto EF LV EDV A4C 217.6 mL LV EDV A2C 239.2 mL LV EDV BP 230.7 mL LV ESV A4C 119.4 mL LV ESV A2C 131.4 mL LV ESV BP 126.3 mL LVEF(%) A4C 45.1 % LVEF(%) A2C 45.1 % LVEF(%) BP 45.3 % LV SV A4C 98.2 ml LV SV A2C 107.8 ml LV SV BP 104.5 ml LV CO A4C 4.9 L/min LV CO A2C 5.4 L/min LV CO BP 5.1 L/min HR A4C 49.85 BPM HR A2C 49.79 BPM LV EDV Index (BP) LA Volume LA Length A4C 7.0 cm LA Length A2C 6.4 cm LA Area A4C s 33.37 cm2 LA Area A2C s 30.63 cm2 LA Vol A4C A-L 135.68 mL LA Vol A2C A-L 124.98 mL LA Vol Biplane A-L 136.2 mL LA Vol/BSA A4C A-L LA Vol/BSA A2C A-L LA Vol/BSA BP A-L 70.6 mL/m2 LA Vol A4C MOD 133.8 mL LA Vol A2C MOD 118.0 mL LA Vol BP MOD 128.7 mL RA Volume RA Area A4C 22.5 cm2 RA ESV A4C (A-L) 68.3mL RA Vol/BSA A4C A-L RA Length A4C 6.3 cm RA ESV A4C (MOD) 65.9mL LV Diastology MV E' medial 0.045 (>0.07 m/s) MV E Vmax 1.05 (0.4-1.3 m/s) MV E/E' MED 23.40 (<14) MV E' lateral 0.088 (>0.1 m/s) MV E/E' LAT 11.95 (<14) MV E' Average 0.066 m/s MV E/E'(average) 15.82 Aortic Valve AoV Vmax 1.91 m/s LVOT Vmax 1.14 m/s AoV Peak Grad 38.9 mmHg LVOT Peak Grad 5.2 mmHg AoV Area (Vmax) 2.31 cm2 LVOT VTI 0.297 m AoV VTI 0.492 m LVOT Mean Grad 2.9 mmHg AoV Mean Kris. 1.35 m/s LVOT SV 114.56 mL AoV Mean Grad 8.4 mmHg LVOT Diam s 2.20 cm AoV Area (VTI) 2.33 cm2 AV Regurg Peak Gr. 14.53 mmHg Velocity Ratio 0.60 AR Decel [place] 1.5m/sec2 AR DT 2657 msec AR PHT 771 msec AR Vmax 3.98 m/s Mitral Valve MV DT 176 (160-240 msec) MR Vmax 4.61 m/s MV Vmax TIPS 1.12 m/s MR VTI 1.728 m MV Mean Grad 1.7 (<2mmHg) MR Peak Grad 85.1 mmHg MV VTI 0.375 m MR Mean Grad 56.3 mmHg MR PISA Radius 0.45 cm MR Aliasing Velocity 0.36 m/s Pulmonary Valve PV Vmax 0.99 (0.5-1.5 m/s) RVOT Vmax 0.63 m/s PV Peak Grad 4.0 mmHg RVOT Peak Gr. 1.6 mmHg PV Mean Kris 0.72 m/s RVOT VTI 0.166 m PV Mean Grad 2.3 mmHg RVOT Mean Gr. 1.0 mmHg Tricuspid Valve RA Pressure 3.00 mmHg TR Vmax 2.61 m/s TV S' 0.13 m/s TR Peak Grad 27.2 mmHg RVSP (TR) 30.2 mmHg
== END 2024-10-13 01:36 ==
LOC: DI 01:17
PROVIDERS: PCP Family Medicine; Visit Provider Emergency Medicine
DX: I50.9 Heart failure, unspecified (principal); I08.3 Combined rheumatic disorders of mitral, aortic and tricuspid valves
CPT/HCPCS: 93306

== ENCOUNTER → 2024-11-02 10:52 | Outpatient (BNVA) | payer MEDICARE, SELFPAY | PROVIDERS: PCP Family Medicine; Referring Provider Family Medicine; Visit Provider Podiatrist | DX: L60.3 Nail dystrophy (principal); B35.1 Tinea unguium; M79.674 Pain in right toe(s); M79.675 Pain in left toe(s); E11.9 Type 2 diabetes mellitus without complications; R09.89 Other specified symptoms and signs involving the circulatory and respiratory systems; R60.0 Localized edema; I83.93 Asymptomatic varicose veins of bilateral lower extremities; L65.9 Nonscarring hair loss, unspecified; L60.2 Onychogryphosis; L60.8 Other nail disorders | CPT/HCPCS: 11720 ==

== ENCOUNTER 2024-11-22 01:23 | Outpatient (CLI) | payer MEDICARE, SELFPAY ==
--- NOTE | 2024-11-22 | DI.US_ITS ---
Exam(s) US ABDOMEN EXAM: US ABDOMEN CLINICAL HISTORY: ELEV BILIRUBIN R17 HX GALLSTONES Z87.19 HX HEP C Z86.19 HX KIDNEY TECHNIQUE: Ultrasound abdomen performed using standard protocol. COMPARISON: CT CT ABDOMEN PELVIS WO from 02/14/2024 FINDINGS: LIVER: Normal size and echogenicity. No focal liver lesions are seen. GALLBLADDER: Single 1cm mobile stone. no evidence of wall thickening. No pericholecystic fluid identi fied. VALDEZ'S SIGN: Negative. BILIARY SYSTEM: No intrahepatic or extrahepatic biliary ductal dilation. KIDNEYS: [place] kidneys are echogenic and atrophic. There is a transplant kidney in the left lower q uadrant which measures 11.6cm in length. No hydronephrosis. PANCREAS: Normal where visualized. SPLEEN: Not enlarged. ABDOMINAL AORTA AND IVC: Visualized portions normal caliber. ASCITES: None seen. IMPRESSION: Single mobile gallstone. Transplant kidney appears normal. DATA REPOSITORY:
== END 2024-11-22 01:43 ==
LOC: DI 01:23
PROVIDERS: PCP Family Medicine; Visit Provider Nurse Practitioner Family
DX: R17 Unspecified jaundice (principal); Z87.19 Personal history of other diseases of the digestive system; Z86.19 Personal history of other infectious and parasitic diseases; Z94.0 Kidney transplant status
CPT/HCPCS: 76700

== ENCOUNTER → 2025-01-19 11:08 | Outpatient (BNVA) | payer MEDICARE, SELFPAY | PROVIDERS: PCP Family Medicine; Referring Provider Family Medicine; Visit Provider Psychiatry & Neurology Neurology | DX: I61.0 Nontraumatic intracerebral hemorrhage in hemisphere, subcortical (principal); R06.6 Hiccough; I63.9 Cerebral infarction, unspecified; G20.C Parkinsonism, unspecified; R26.9 Unspecified abnormalities of gait and mobility; I12.9 Hypertensive chronic kidney disease with stage 1 through stage 4 chronic kidney disease, or unspecified chronic kidney disease; N18.9 Chronic kidney disease, unspecified; Z94.0 Kidney transplant status | CPT/HCPCS: 99214 ==

== ENCOUNTER 2025-01-27 01:11 | Outpatient (CLI) | payer MEDICARE, SELFPAY ==
[2025-01-27] MEDS: Inhaler, Assist Device 1 EACH MC (13:53)
[2025-01-27] MEDS: Levalbuterol HFA 15 GM INH 4 PUFF IH (13:53)
--- NOTE | 2025-01-30 08:58 | W.PFT ---
Date of service: 01/27/25 Time of Service: 12:54 Pulmonary Function Test Result Indications: Dyspnea with exertion Impression 1. Good patient effort was noted. ATS standards for reproducibility were met. 2. Spirometry showed no obstruction, but a reduced FVC. Could be seen with restrictive lung disease. 3. Following the administration of a bronchodilator there was not a significant response Recommendations: Reduced FVC is suggestive of restriction. Recommend full pulmonary function testing for further evaluation
== END 2025-01-27 01:12 | disposition home or self-care (01) ==
LOC: RT 01:11
PROVIDERS: PCP Family Medicine; Referring Provider Family Medicine; Visit Provider Internal Medicine Pulmonary Disease
DX: R06.09 Other forms of dyspnea (principal); J44.9 Chronic obstructive pulmonary disease, unspecified
CPT/HCPCS: 94060

== ENCOUNTER → 2025-02-02 12:50 | Outpatient (BNVA) | payer MEDICARE, SELFPAY | PROVIDERS: PCP Family Medicine; Referring Provider Family Medicine; Visit Provider Internal Medicine Pulmonary Disease | DX: R06.09 Other forms of dyspnea (principal); R94.2 Abnormal results of pulmonary function studies; I11.0 Hypertensive heart disease with heart failure; I43 Cardiomyopathy in diseases classified elsewhere; Z72.0 Tobacco use | CPT/HCPCS: 99215 ==

== ENCOUNTER 2025-02-07 03:55 | Outpatient (CLI) | payer MEDICARE, SELFPAY ==
[2025-02-07] MEDS: Inhaler, Assist Device 1 EACH MC (09:05)
[2025-02-07] MEDS: Levalbuterol HFA 15 GM INH 4 PUFF IH (09:05)
--- NOTE | 2025-02-08 07:35 | W.PFT ---
Date of service: 02/07/25 Time of Service: 07:59 Pulmonary Function Test Result Indications: Dyspnea Impression 1. Good patient effort was noted. ATS standards for reproducibility were met. 2. Normal spirometry. 3. Following the administration of a bronchodilator there was not a significant response 4. TLC was normal. No evidence of restrictive lung disease 5. DLCO was 79%, but corrected to 83%, indicating normal alveolar gas exchange
== END 2025-02-07 03:56 | disposition home or self-care (01) ==
LOC: RT 03:55
PROVIDERS: PCP Family Medicine; Visit Provider Internal Medicine Pulmonary Disease
DX: R06.00 Dyspnea, unspecified (principal); R94.2 Abnormal results of pulmonary function studies
CPT/HCPCS: 94060; 94726; 94729

== ENCOUNTER → 2025-03-01 10:45 | Outpatient (BNVA) | payer MEDICARE, SELFPAY | PROVIDERS: PCP Family Medicine; Referring Provider Family Medicine; Visit Provider Podiatrist | DX: L60.3 Nail dystrophy (principal); B35.1 Tinea unguium; M79.674 Pain in right toe(s); M79.675 Pain in left toe(s); E11.9 Type 2 diabetes mellitus without complications; R09.89 Other specified symptoms and signs involving the circulatory and respiratory systems; R60.0 Localized edema; I83.93 Asymptomatic varicose veins of bilateral lower extremities; L65.9 Nonscarring hair loss, unspecified; L60.2 Onychogryphosis; L60.8 Other nail disorders | CPT/HCPCS: 11719; 11720 ==

== ENCOUNTER → 2025-03-02 10:05 | Outpatient (BNVA) | payer MEDICARE, SELFPAY | PROVIDERS: PCP Family Medicine; Referring Provider Family Medicine; Visit Provider Internal Medicine Pulmonary Disease | DX: G47.33 Obstructive sleep apnea (adult) (pediatric) (principal); R06.09 Other forms of dyspnea; R94.2 Abnormal results of pulmonary function studies; F17.290 Nicotine dependence, other tobacco product, uncomplicated | CPT/HCPCS: 99214 ==

== ENCOUNTER 2025-03-02 14:19 | Outpatient (CLI) | payer MEDICARE, SELFPAY ==
--- NOTE | 2025-03-02 11:00 | DI.RAD_ITS ---
Exam(s) XR CHEST 2V PA LATERAL EXAM: XR CHEST 2V PA LATERAL CLINICAL HISTORY: dyspnea R06.09 ABNL PFT R94.2 TECHNIQUE: 2D digital imaging was performed of the chest. Two images were obtained. PA and lateral views were obtained. COMPARISON: CR XR CHEST 2V PA LATERAL from 09/12/2024 FINDINGS: MEDIASTINUM: Normal. HEART: Normal. The cardiac pacing wires are stable in position. PULMONARY VASCULATURE: Normal. LUNGS: There are no focal consolidating infiltrates. There is mild prominence of the interstitium which may represent pulmonary edema. PLEURAL SPACE: No pleural effusion or pneumothorax. BONE:Within normal limits for the patient's age. OTHER FINDINGS:Normal. IMPRESSION: Mild prominence of the interstitium bilaterally which may reflect pulmonary edema. DATA REPOSITORY: RADIATION DOSE DELIVERED:
== END 2025-03-02 14:39 ==
LOC: DI 14:21
PROVIDERS: PCP Family Medicine; Visit Provider Internal Medicine Pulmonary Disease
DX: R06.09 Other forms of dyspnea (principal); R94.2 Abnormal results of pulmonary function studies
CPT/HCPCS: 71046

== ENCOUNTER 2025-03-09 12:16 | Outpatient (CLI) | payer MEDICARE, SELFPAY ==
[2025-03-09 12:31] LABS: HCT 40.5 % (40.0-50.0); HGB 13.5 g/dL (13.5-17.5); MCH 29.9 pg (27.0-33.0); MCHC 33.3 % (32.0-36.0); MCV 90 fL (80-95); MPV 9.1 fL (8.0-11.0); Platelet Count 217 10^3/uL (130-400); RBC 4.52 10^6/uL (4.36-5.78); RDW 13.7 % (11.8-14.1); RDW-SD 45.1 fL; WBC 6.50 10^3/uL (4.4-10.8)
[2025-03-09 12:40] LABS: Hemoglobin A1C 6.6 % (<5.7)
[2025-03-09 13:31] LABS: ALT 29 U/L (16-63); AST 24 U/L (15-37); Albumin 3.5 g/dL (3.4-5.0); Alkaline Phosphatase 78 U/L (46-116); Anion Gap 7.5 mmol/L (3-11); BUN 18 mg/dL (7-18); Bilirubin, Total 3.7 mg/dL (0.2-1.0); CO2 29.5 mmol/L (21.0-32.0); Calcium 9.8 mg/dL (8.5-10.1); Chloride 104 mmol/L (98-107); Estimated GFR 47.95 (mL/min/1.73m2); Glucose 107 mg/dL (74-106); Magnesium 1.4 mg/dL (1.8-2.4); Potassium 3.9 mmol/L (3.5-5.1); Sodium 141 mmol/L (136-145); Total Protein 6.9 g/dL (6.4-8.2); Triglyceride 77 mg/dL (<150); Uric Acid 6.7 mg/dL (3.5-7.2)
[2025-03-09 13:44] LABS: Calculated LDL 30 mg/dL (<100); Cholesterol 84 mg/dL (<200); HDL Cholesterol 39 mg/dL (>or=40)
[2025-03-09 13:50] LABS: PROTEIN 38.3 mg/dL; Prot/Crea Ur Ratio 0.27
[2025-03-10 10:23] LABS: Calcium (Random Urine) 11.7 mg/dL (See Note)
[2025-03-14 16:00] LABS: 1,25-Dihydroxyvitamin D 29 pg/mL (18-64)
== END 2025-03-09 12:17 | disposition home or self-care (01) ==
LOC: LBO 12:17
PROVIDERS: PCP Family Medicine; Visit Provider Nurse Practitioner Family
DX: Z94.0 Kidney transplant status (principal); E55.9 Vitamin D deficiency, unspecified; Z79.899 Other long term (current) drug therapy
CPT/HCPCS: 36415; 80053; 80061; 82306; 83735; 85027; 80197; 81003; 82340; 82565; 82652; 83036; 83970; 84100; 84105; 84156; 84550; 85045; 87799

== ENCOUNTER → 2025-03-22 14:02 | Outpatient (BNVA) | payer MEDICARE, SELFPAY | PROVIDERS: PCP Family Medicine; Referring Provider Family Medicine; Visit Provider Student in an Organized Health Care Education/Training Program | DX: I48.91 Unspecified atrial fibrillation (principal); Z45.018 Encounter for adjustment and management of other part of cardiac pacemaker | CPT/HCPCS: 93280 ==

== ENCOUNTER 2025-04-07 10:35 | Outpatient (CLI) | payer MEDICARE, SELFPAY ==
[2025-04-07 10:51] LABS: Abs Immature Grans 0.04 10^3/uL (0.0-0.06); HCT 41.9 % (40.0-50.0); HGB 13.7 g/dL (13.5-17.5); Immature Grans % 0.5 %; MCH 29.0 pg (27.0-33.0); MCHC 32.7 % (32.0-36.0); MCV 89 fL (80-95); MPV 8.5 fL (8.0-11.0); Platelet Count 372 10^3/uL (130-400); RBC 4.73 10^6/uL (4.36-5.78); RDW 13.4 % (11.8-14.1); RDW-SD 43.3 fL; WBC 8.50 10^3/uL (4.4-10.8)
[2025-04-07 11:10] LABS: Glucose >=1000 mg/dL (Negative)
[2025-04-07 11:14] LABS: Hemoglobin A1C 6.5 % (<5.7)
[2025-04-07 11:19] LABS: C & S Indicated? No; RBC Negative HPF (0-2); WBC 0-2 HPF (0-5)
[2025-04-07 11:36] LABS: ALT 39 U/L (16-63); AST 30 U/L (15-37); Albumin 3.2 g/dL (3.4-5.0); Alkaline Phosphatase 98 U/L (46-116); Anion Gap 10.3 mmol/L (3-11); BUN 20 mg/dL (7-18); Bilirubin, Total 1.8 mg/dL (0.2-1.0); CO2 28.7 mmol/L (21.0-32.0); Calcium 9.9 mg/dL (8.5-10.1); Chloride 104 mmol/L (98-107); Estimated GFR 52.09 (mL/min/1.73m2); Glucose 119 mg/dL (74-106); Magnesium 1.6 mg/dL (1.8-2.4); Potassium 3.9 mmol/L (3.5-5.1); Sodium 143 mmol/L (136-145); Total Protein 7.8 g/dL (6.4-8.2); Uric Acid 4.7 mg/dL (3.5-7.2)
[2025-04-07 11:47] LABS: Calculated LDL 37 mg/dL (<100); Cholesterol 89 mg/dL (<200); HDL Cholesterol 35 mg/dL (>or=40); Triglyceride 85 mg/dL (<150)
[2025-04-07 11:53] LABS: PROTEIN 56.8 mg/dL; Prot/Crea Ur Ratio 0.52
== END 2025-04-07 10:36 | disposition home or self-care (01) ==
LOC: LBO 10:35
PROVIDERS: PCP Family Medicine; Visit Provider Nurse Practitioner Family
DX: Z94.0 Kidney transplant status (principal); E13.9 Other specified diabetes mellitus without complications
CPT/HCPCS: 36415; 80053; 80061; 80197; 81003; 81015; 82565; 83036; 83735; 84100; 84156; 84550; 85025; 87799

== ENCOUNTER → 2025-04-12 10:46 | Outpatient (BNVA) | payer MEDICARE, SELFPAY | PROVIDERS: PCP Family Medicine; Referring Provider Family Medicine; Visit Provider Internal Medicine Pulmonary Disease | DX: I11.0 Hypertensive heart disease with heart failure (principal); I43 Cardiomyopathy in diseases classified elsewhere; G47.33 Obstructive sleep apnea (adult) (pediatric); R06.09 Other forms of dyspnea; R94.2 Abnormal results of pulmonary function studies | CPT/HCPCS: 99214 ==

== ENCOUNTER 2025-04-25 00:21 | Outpatient (CLI) | payer MEDICARE, SELFPAY ==
--- NOTE | 2025-04-25 07:00 | DI.CT_ITS ---
Exam(s) CT CHEST WO EXAM: CT CHEST WO CLINICAL HISTORY: Dyspnea, interstitial infiltrates on CXR,abnl pft's,r06.09.r94.2. TECHNIQUE: Imaging protocol: Axial computed tomography images were obtained and coronal and sagittal reformatted images were created and reviewed. Lung Computer Aided Detection (CAD) was utilized. COMPARISON: CT CT CHEST/ABD/PEL WO from 02/25/2021 CR XR CHEST 2V PA LATERAL from 03/02/2025 FINDINGS: The examination is limited due to patient motion artifact. Tracheobronchial tree: Patent where visualized. No bronchiectasis is present. Pulmonary parenchyma: No consolidation or dominant measurable mass. The interstitial infiltrates have resolved. Mild atelectatic changes and/or scarring is seen in the lingula. There is a 5 mm peripheral nodule in the left lower lobe. There is a triangular shaped nodule associated with the left major fissure. Mediastinum and Kathryn: No dominant adenopathy or fluid collection. The esophagus is unremarkable. Thyroid gland: Unremarkable. Pleura: No effusion or pneumothorax. Heart: Cardiomegaly. There is a cardiac pacing device. Three vessel coronary artery calcification is present. No pericardial effusion. Aorta: The ascending thoracic aorta measures 4.0 x 4.2 cm. Atherosclerotic calcification is present. Upper abdomen: Cholelithiasis. There is marked bilateral renal atrophy. Lymph nodes: Within normal limits. Soft tissues: Unremarkable. Bones:Within normal limits for the patient's age. IMPRESSION: 1. Resolution of the pulmonary infiltrates. 2. 5 mm left lower lobe pulmonary nodule. Solid nodules smaller than 6 mm do not require routine follow-up in all patients with high clinical risk; however, some nodules smaller than 6 mm with suspicious morphology, upper lobe location, or both may warrant follow-up at 12 months (grade 2A; weak recommendation, high-quality evidence). (Audrey et al., 2017) Single solid noncalcified nodules. ???Solid nodules smaller than 6 mm (those 5 mm or smaller) do not require routine follow-up in patients at low risk (grade 1C; strong recommendation, low- or [id number] evidence). (Yamilehonicola et al., 2017) 3. Marked renal cortical atrophy. 4. Cholelithiasis. RADIATION DOSE DELIVERED: 250.55mGy.cm Total DLP 250.55mGy.cm Total DLP DATA REPOSITORY: All CT scans at this facility are submitted to the National Radiology Data Registry (NRDR) Dose Index Registry (DIR) with the [employer] (A[employer]). RADIATION OPTIMIZATION: All CT scans at this facility use at least one of these dose optimization techniques: automated exposure control; mA and/or kV adjustment per patient size (includes targeted exams where dose is matched to clinical indication); or iterative reconstruction.
== END 2025-04-25 00:41 ==
LOC: DI 00:21
PROVIDERS: PCP Family Medicine; Visit Provider Internal Medicine Pulmonary Disease
DX: R06.09 Other forms of dyspnea (principal); R94.2 Abnormal results of pulmonary function studies
CPT/HCPCS: 71250

== ENCOUNTER → 2025-05-11 11:06 | Outpatient (BNVA) | payer MEDICARE, SELFPAY | PROVIDERS: PCP Family Medicine; Referring Provider Family Medicine; Visit Provider Psychiatry & Neurology Neurology | DX: I61.0 Nontraumatic intracerebral hemorrhage in hemisphere, subcortical (principal); R06.6 Hiccough; I63.9 Cerebral infarction, unspecified; R25.1 Tremor, unspecified; R26.9 Unspecified abnormalities of gait and mobility; I10 Essential (primary) hypertension; Z94.0 Kidney transplant status; Z95.818 Presence of other cardiac implants and grafts; Z79.02 Long term (current) use of antithrombotics/antiplatelets | CPT/HCPCS: 99213 ==

== ENCOUNTER → 2025-05-31 10:05 | Outpatient (BNVA) | payer MEDICARE, SELFPAY | PROVIDERS: PCP Family Medicine; Referring Provider Family Medicine; Visit Provider Internal Medicine Pulmonary Disease | DX: R06.09 Other forms of dyspnea (principal); R94.2 Abnormal results of pulmonary function studies; I11.0 Hypertensive heart disease with heart failure; I43 Cardiomyopathy in diseases classified elsewhere; G47.33 Obstructive sleep apnea (adult) (pediatric); F17.210 Nicotine dependence, cigarettes, uncomplicated; Z94.0 Kidney transplant status | CPT/HCPCS: 99214 ==

== ENCOUNTER 2025-06-21 00:50 | Outpatient (CLI) | payer MEDICARE, SELFPAY ==
[2025-06-21 12:32] LABS: Abs Immature Grans 0.03 10^3/uL (0.0-0.06); HCT 45.0 % (40.0-50.0); HGB 15.0 g/dL (13.5-17.5); Immature Grans % 0.4 %; MCH 30.4 pg (27.0-33.0); MCHC 33.3 % (32.0-36.0); MCV 91 fL (80-95); MPV 9.7 fL (8.0-11.0); Platelet Count 292 10^3/uL (130-400); RBC 4.94 10^6/uL (4.36-5.78); RDW 13.8 % (11.8-14.1); RDW-SD 46.3 fL; WBC 8.55 10^3/uL (4.4-10.8)
[2025-06-21 12:40] LABS: Glucose 500 mg/dL (Negative)
[2025-06-21 12:48] LABS: Uric Acid 5.7 mg/dL (3.7-9.2)
[2025-06-21 12:49] LABS: Magnesium 1.4 mg/dL (1.6-2.6)
[2025-06-21 12:51] LABS: ALT 19 U/L (10-49); AST 21 U/L (<34); Albumin 4.1 g/dL (3.2-5.0); Alkaline Phosphatase 86 U/L (46-116); Anion Gap 7.1 mmol/L (3-11); BUN 18 mg/dL (9-23); Bilirubin, Total 2.7 mg/dL (0.2-1.2); CO2 32.9 mmol/L (20.0-31.0); Calcium 9.7 mg/dL (8.3-10.6); Chloride 104 mmol/L (98-107); Glucose 120 mg/dL (74-106); Potassium 4.0 mmol/L (3.5-5.1); Sodium 144 mmol/L (136-145); Total Protein 7.4 g/dL (5.7-8.2)
[2025-06-21 12:57] LABS: RBC 0-2 HPF (0-2); WBC Negative HPF (0-5)
[2025-06-21 12:58] LABS: C & S Indicated? No
[2025-06-21 13:52] LABS: Cholesterol 93 mg/dL (<200)
[2025-06-21 13:52] LABS: Prot/Crea Ur Ratio 0.57 mg/mg Cr
[2025-06-21 14:32] LABS: Hemoglobin A1C 6.5 % (<5.7)
== END 2025-06-21 00:51 | disposition home or self-care (01) ==
LOC: LBO 00:50
PROVIDERS: Nurse Practitioner Family; PCP Family Medicine; Visit Provider Internal Medicine Nephrology
DX: Z94.0 Kidney transplant status (principal); E11.8 Type 2 diabetes mellitus with unspecified complications
CPT/HCPCS: 36415; 80053; 80197; 81003; 81015; 82465; 82565; 83036; 83735; 84100; 84156; 84550; 85025; 87799